=== PATIENT | female | born 1965 | race Caucasian/White ===

== ENCOUNTER → 2016-12-31 | Outpatient (CLI) | payer MEDICAID ==
[~2016-12-31] MED LIST: ADVIL PM; ALBU0.8322 IH; ALBU17AE23 IH; ALBU8.5H2 IH; AML5T; AMLO-79 PO; AMLO10TA PO; AMLO10TA82 PO; AMLO1CAP31 PO; AMLO1CAP9 PO; AMLO5TAB2; ATOR40TA70 PO; ATR20T PO; AZIT-21 PO; BACL10TA; BENZ100C18 PO; BENZ100C8 PO; BPR150TCR PO; BUDE10.22 IH; CATHETER FLUSH 10 ML SYR IV PRN; CELE50CA PO; CEPH-38 PO; CEPH500C PO; CIPR500T4 PO; CLON0.5T3; CLOP75TA PO; CPR250T PO; CPR500T PO; CYCL10TA9 PO; DARI7.5T8 PO; DESV50TA PO; DICL75TA2 PO; DIPH1TAB25 PO; DOXE100C4 PO; DOXY100C2 PO; DOXY100T2 PO; DULO60CA6; DXCC100C PO; DYAZIDE; ERT1OO OP; ESZO2TAB30 PO; EZET1TAB21; EZET1TAB44; FAMO20TA13 PO; FAMO20TA42 PO; FAMO20TA5 PO; FLT22013 IH; FLT22013 INH; FLUO20CA42 PO; FLUT1DIS26 IH; FURO20TA4; FURO20TA4 PO; FURO40TA4 PO; GABA100T PO; GABA300C PO; GBPN300C PO; GBPN400C PO; HCA25SU PR; HYDR-1231 PO; HYDR-2858 PO; HYDR-34 PO; HYDR-3454 PO; HYDR-3583 PO; HYDR-3714; HYDR-3714 PO; HYDR-3816 PO; HYDR-756 PO; HYDR-91 PO; HYDR118S10 PO; HYDR1TAB PO; HYDR1TAB86 PO; HYDR28CR10 TP; HYDR30CR71 RC; HYOS0.1217 PO; IBUP-1780 PO; IBUP800T26 PO; INSASP10V SC; INSU100I14 SQ; IOHEXOL 350 MG/ML 100 ML (OMNIPAQUE 350) VIAL IV ONE; IPRA0.2S18 IH; IPRA3AMP11 INH; IPRA4AER IH; KCL20TCR; LEVO500T69 PO; LISI10TA PO; LISI10TA2 PO; LORA10TA7 PO; LOVA40TA2 PO; LVB.63NB3; LVB.63NB3 NEB; LVB125NB3; LVT.025T PO; LVT.05T PO; MECL-106 PO; MECL25TA56 PO; MELO-195 PO; METF-380 PO; METF500T4 PO; METH500T35 PO; METH500T7 PO; METO-333 PO; METO25TA2 PO; MTF500T; MTF500T PO; NAPR-243 PO; NF-CYM60C; NF-LOVAZAC PO; NF-PULMINH; NF-TYLARTH PO; NITR-65 PO; NITR0.3T6 SL; NITR100C3 PO; NPB15O TOP; NS 100 ML (IVPB) BAG IV ONE; NTR.4SL SL; OMEG1CAP PO; OXYB15TA PO; OXYC-12 PO; OXYC1TAB87 PO; PANT40TA2 PO; PARO10TA2 PO; PENT100C3 PO; PHEN-640 PO; PHEN200T27 PO; POTA10CA43 PO; POTA10TA36 PO; PRD10T PO; PRD20T PO; PRD50T PO; PRESTIQ PO; PROP1TAB77 PO; PROVENTIL INHALER; QTP100T PO; QTP25T; QUET100T69; QUET200T2 PO; RT-COMBINH; RT-COMBINH IH; SIMV40TA4 PO; SMV10T PO; SULF-222 PO; SULF1TAB38; SULF1TAB38 PO; SULFACETAMIDE; TMZP15C PO; TOLTA4; TOLTA4 PO; TRAM-21 PO; TRAM50TA2 PO; TRAZ50TA67 PO; TRIA1CAP; TRIA1CAP PO; TRM50T; TRM50T PO; ZOLP10TA5 PO
--- OUTSIDE RECORDS SUMMARY | 2016-12-31 10:23 | XMS REPORT | Continuity of Care Document ---
Author Author [facility] Organization [facility] Address Unknown Phone Unavailable Care Team Providers Care Director Of Rehabilitation Name Role Phone Osvaldo Palafox PCP [phone] Source Comments Some departments are not documenting in the electronic medical record. If you do not see the information that you expected, contact Release of Information in the Health Information Management department at [phone] for further assistance in locating additional records.[facility] Active Allergies and Adverse Reactions Allergen Noted Date Severity Reactions Comments Asa 07/19/2014 Medium EDEMA Aspirin 09/18/2016 Low UNKNOWN Benazepril 08/30/2014 Low SEE COMMENTS Patient states, "I get awful sick" Benazepril 09/18/2016 Low UNKNOWN Codeine 07/19/2014 Medium HIVES Codeine 09/18/2016 Low UNKNOWN Pcn 07/19/2014 Medium EDEMA Peanut 02/15/2015 Medium HIVES Penicillins 09/18/2016 Low UNKNOWN Current Medications Prescription Sig. Disp. Refills Start End Date Status Date fluticasone (FLOVENT HFA) Inhale 2 Puffs by mouth Active 220 mcg/actuation inhaler every 12 hours. gabapentin (NEURONTIN) Take 600 mg by mouth Active 300 mg capsule three times daily. lisinopril (PRINIVIL; Take 10 mg by mouth Active ZESTRIL) 10 mg tablet daily. metFORMIN (GLUCOPHAGE) Take 500 mg by mouth Active 500 mg tablet twice daily with meals. nitroglycerin (NITROSTAT) Place 0.4 mg under tongue Active 0.4 mg tablet every 5 minutes as needed. albuterol (VENTOLIN HFA, Inhale 2 Puffs by mouth Active PROAIR HFA) 90 every 4 hours as needed. mcg/actuation inhaler albuterol 0.5% Inhale 2.5 mg solution as Active (PROVENTIL; VENTOLIN) 2.5 directed four times mg/0.5 mL nebu nebulizer daily. solution insulin aspart (NOVOLOG) Inject 10 Units into Active 100 unit/mL flexPEN area(s) as directed three times daily with meals. budesonide/formoterol Inhale 2 Puffs by mouth Active (SYMBICORT) 160/4.5 mcg twice daily. HFAA inhalation HYDROcodone/acetaminophen Take 1 Tab by mouth every Active (NORCO) 7.5/325 mg tablet 6 hours as needed ferrous sulfate (FEOSOL, Take 325 mg by mouth Active FEROSUL) 325 mg (65 mg twice daily. Take on an iron) tablet empty stomach at least 1 hour before or 2 hours after food. ipratropium/albuterol Inhale 2 Puffs by mouth Active (COMBIVENT) 103/18 into the lungs four times mcg/Actuation inhaler daily as needed for Wheezing. levothyroxine (SYNTHROID) Take 50 mcg by mouth Active 50 mcg tablet daily 30 minutes before breakfast. hyoscyamine sulfate 1 Tab every 4 hours as 30 Tab 3 09/12/20 Active (LEVSIN/SL) 0.125 mg needed for Cramps. 16 sublingual tablet acetaminophen (TYLENOL) Take 2 Tabs by mouth 30 Tab 1 09/16/20 Active 325 mg tablet every 4 hours as needed 16 for Pain. atorvastatin (LIPITOR) 40 09/11/20 Active mg tablet 16 gabapentin (NEURONTIN) 09/11/20 Active 300 mg capsule 16 HYDROcodone/acetaminophen 09/04/20 Active (NORCO) 5-325 mg tablet 16 hyoscyamine sulfate 09/12/20 Active (LEVSIN/SL) 0.125 mg 16 sublingual tablet levothyroxine (SYNTHROID) 09/11/20 Active 50 mcg tablet 16 metFORMIN (GLUCOPHAGE) 06/10/20 Active 500 mg tablet 16 PARoxetine (PAXIL) 10 mg 09/11/20 Active tablet 16 oxybutynin XL (DITROPAN 09/11/20 Active XL) 15 mg tablet 16 ELMIRON 100 mg capsule 09/11/20 Active 16 zolpidem (AMBIEN) 5 mg 09/11/20 Active tablet 16 hydrOXYzine (ATARAX) 10 TAKE 1 TABLET BY MOUTH 60 Tab 0 12/08/19 Active mg tablet TWICE DAILY 17 hydrOXYzine (ATARAX) 10 TAKE 1 TABLET BY MOUTH 60 Tab 3 06/27/2008/19 Discontin mg tablet TWICE DAILY 16 17 ued hydrOXYzine hcl (ATARAX) 09/11/20 12/08/19 Discontin 10 mg tablet 16 17 ued Active Problems Problem Noted Date Traumatic arthritis of right ankle 09/18/2016 IC (interstitial cystitis) 01/30/2016 Overview: Tried pelvic floor PT. Tried oral Elmiron --> no improvement. Tried Atarax --> no improvement. Tried Levsin --> no improvement. Tried Gabapentin 600 mg TID. Trial Elmiron bladder instillations x 6 (02/06/2016 -- 05/09/2016) --> no improvement. L ast Assessment & Plan: - pain management referral - schedule for next available bladder botox injection - future follow up with Dr. Durbin - referral to Dr. Carlton in [facility] for vaginal pain Gross hematuria 10/24/2015 Overview: Gross hematuria in setting of smoking history 09/28/15: CT abd/pel w/ diffuse mural thickening of distal right ureter 10/05/15: right URS w/ biopsy, cytology, and right ureteral stent placement. Intraoperative findings: diffuse inflammation of the distal right ureter; cytology: acute inflammation but no malignant cells; biopsy: tissue not adequate for diagnosis. Last Assessment & Plan: Gross hematuria remains intermittently present. There was no evidence of a malignant etiology on evaluation. Will continue to monitor. - Repeat CT Urogram 6 months. Recurrent UTI 07/19/2014 Last Assessment & Plan: Continue Bactrim SS. F/u w/ Dr. Cartwright. Mixed urge and stress incontinence (TRI) Overview: TRI (KATIA > UUI) refractory to a pubovaginal sling x 2 in 10/22/2013 and 01/28/2012 and macroplastique in 08/03/2013, mirabegron and anticholinergics. 1 ppd, poorly controlled DMII, obesity. UDS (08/30/2014): small capacity; complete emptying; +DO with leak. Cysto (08/30/14): unremarkable. Botox 200U (09/15/2014, 03/06/2015): no improvement; non-compliant with reduction of fluids and caffeine; continues drinking excessive amount of soda and coffee. Botox 250u (09/04/2015): slight improvement yet continued non-compliance. Botox 200u (03/04/2016). L ast Assessment & Plan: Next bladder Botox injection scheduled for February w/ Dr. Durbin. Chronic female pelvic pain Overview: Tried pelvic floor PT. Tried oral Elmiron --> no improvement. Tried Atarax --> no improvement. Tried Levsin --> no improvement. Tried Gabapentin 600 mg TID. Trial Elmiron bladder instillations x 6 (02/06/2016 -- 05/09/2016) --> no improvement. L ast Assessment & Plan: See IC A&P note. OAB (overactive bladder) Most Recent Encounters Date Type Specialty Providers Description 12/22/2016 [facility] Pradip Jaramillo MD Right ankle pain Encounter 12/19/2016 Surgery Pradip Jaramillo MD PROPHECY TOTAL ANKLE REPLACEMENT 12/08/2016 Refill Urology Rishi Cartwright MD 12/04/2016 Prep for Case Orthopedic Surgery Pradip Jaramillo MD 10/07/2016 [facility] Radiology Pradip Jaramillo MD Encounter Social History Tobacco Use Types Packs/Day Years Used Date Current Every Day Smoker Cigarettes 0.5 30 Smokeless Tobacco: Never Used Alcohol Use Drinks/Week oz/Week Comments No Last Filed Vital Signs Vital Sign Reading Time Taken Blood Pressure 154/88 09/16/2016 2:00 PM CDT Pulse 77 09/16/2016 2:00 PM CDT Temperature 36.7 C (98.1 F) 09/16/2016 2:00 PM CDT Respiratory Rate 16 10/24/2015 3:18 PM [employer] Height 1.676 m (5' 6") 09/12/2016 11:22 AM CDT Weight 82.3 kg (181 lb 7 oz) 09/16/2016 11:29 AM CDT Body Mass Index 29.3 09/16/2016 11:29 AM CDT Oxygen Saturation 95% 09/16/2016 2:00 PM CDT Plan of Care Date Type Specialty Providers Description 03/17/2017 Surgery Hermila Durbin MD CYSTOSCOPY WITH [address] [place] [place] [address] [place] [address] UNITS [phone] (Fax) Health Maintenance Due Date Last Done Comments Hepatitis C Screening 1964 Physical (Comprehensive) 1971 Exam Pertussis Vaccine 1975 Tetanus Vaccine 1981 Cervical Cancer Screening 1985 Breast Cancer Screening 2004 Colorectal Cancer 2014 Screening Influenza Vaccine 07/31/2016 Results from Last [address] LOWER EXTREM WO CONT RIGHT (10/07/2016 7:38 AM) Impressions 1. 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 Correlation with prior surgical history is recommended. 2. Multiple ossicles within the anterior and posterior recess of the ankle joint space. The combination of anterior ossicles and dorsal talar osteophytes is suspicious for anterior ankle impingement syndrome. 3. Old healed internally fixed distal fibular fracture. Approved by Cheyenne Babin M.D. on 10/07/2016 9:23 AM By my electronic signature, I attest that I have personally reviewed the images for this examination and formulated the interpretations and opinions expressed in this report Finalized by Joon Heath M.D. on 10/07/2016 10:49 AM. Dictated by Cheyenne Babin M.D. on 10/07/2016 7:[address] OF THE RIGHT ANKLE INDICATION: Right ankle fracture status post surgical repair. TECHNIQUE: Contiguous axial images were obtained through the right ankle in bone and soft tissue window algorithms. Post processing reconstructions were obtained in the coronal and sagittal planes. COMPARISON: Plain radiograph plate September 18, 2016 FINDINGS: Old fracture deformity of the distal tibia is noted with marked irregularity, incongruity and depression of the central weightbearing articular surface of the distal tibia. Immediately deep to the depressed segment of the subchondral bone plate, there is a persistent transverse lucent line, likely an ununited fracture or incompletely incorporated bone graft material. There is an incompletely healed portion of the fracture along the posterior aspect of the tibia (series 14 image 28). Multiple moderate-sized ossicles are seen within the anterior recess of the joint space, measuring up to 0.7 cm. Additional smaller ossicles are seen within the posterior recess of the ankle joint space. Dorsal osteophyte is noted along the lateral talar neck, which in conjunction with previously noted anterior ossicles is suspicious for anterior ankle impingement syndrome. Small ankle joint effusion is present. There is extensive secondary osteoarthritis of the tibiotalar joint, with marked joint space narrowing, subchondral cystic change, and osteophyte formation. Prior ORIF of old healed distal fibular fracture with intact lateral plate and screw fixation. Procedure Note Interface, Radiant Results - Tue Oct 07, 2016 10:52 AM [employer] O[employer] CT OF THE RIGHT ANKLE INDICATION: Right ankle fracture status post surgical repair. TECHNIQUE: Contiguous axial images were obtained through the right ankle in bone and soft tissue window algorithms. Post processing reconstructions were obtained in the coronal and sagittal planes. COMPARISON: Plain radiograph plate September 18, 2016 FINDINGS: Old fracture deformity of the distal tibia is noted with marked irregularity, incongruity and depression of the central weightbearing articular surface of the distal tibia. Immediately deep to the depressed segment of the subchondral bone plate, there is a persistent transverse lucent line, likely an ununited fracture or incompletely incorporated bone graft material. There is an incompletely healed portion of the fracture along the posterior aspect of the tibia (series 14 image 28). Multiple moderate-sized ossicles are seen within the anterior recess of the joint space, measuring up to 0.7 cm. Additional smaller ossicles are seen within the posterior recess of the ankle joint space. Dorsal osteophyte is noted along the lateral talar neck, which in conjunction with previously noted anterior ossicles is suspicious for anterior ankle impingement syndrome. Small ankle joint effusion is present. There is extensive secondary osteoarthritis of the tibiotalar joint, with marked joint space narrowing, subchondral cystic change, and osteophyte formation. Prior ORIF of old healed distal fibular fracture with intact lateral plate and screw fixation. IMPRESSION 1. 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 Correlation with prior surgical history is recommended. 2. Multiple ossicles within the anterior and posterior recess of the ankle joint space. The combination of anterior ossicles and dorsal talar osteophytes is suspicious for anterior ankle impingement syndrome. 3. Old healed internally fixed distal fibular fracture. Approved by Cheyenne Babin M.D. on 10/07/2016 9:23 AM By my electronic signature, I attest that I have personally reviewed the images for this examination and formulated the interpretations and opinions expressed in this report Finalized by Joon Heath M.D. on 10/07/2016 10:49 AM. Dictated by Cheyenne Babin M.D. on 10/07/2016 7:51 AM.
--- NOTE | 2016-12-31 16:09 | Diagnostic Imaging Report ---
EXAMINATION: CT angiogram of the abdomen performed without and with intravenous contrast. TECHNIQUE: The CTA evaluation was performed of the abdominal aorta with axial images and coronal MIP reconstructions without and with intravenous contrast. INDICATION: Post EVAR evaluation. CONTRAST: 100 mL of Omnipaque 350 was administered intravenously. FINDINGS: There is minimal atelectasis in the lung bases. The liver, spleen, pancreas, and adrenals appear unremarkable. Small calcified gallstones are seen. The kidneys demonstrate symmetric contrast enhancement and excretion. There is mild renal atrophy, particularly on the left side. No focal mass. There is an endovascular repair with a bifurcating aortobiiliac graft seen in the abdominal aorta with landing zones in the distal common iliac artery bilaterally. The endograft is patent. The maximum caliber of the aneurysm is 5 cm. The unenhanced phase demonstrates multiple hyperdensities within the aneurysm lumen outside the graft that persist on post contrast images, compatible with calcifications with no evidence of an endoleak. The proximal aspects of the external iliac and internal iliac arteries visualized are patent. No periaortic significantly enlarged lymph node or mass. The celiac trunk and SMA are both patent. The renal arteries are both patent. The NIKHIL origin is occluded with retrograde flow in its mid to distal aspect seen. The osseous structures appear grossly unremarkable. IMPRESSION: 1. There is a 5 cm AAA status post patent endograft repair with no evidence of endoleak. 2. Small calcified gallstones. Dictated by: Dictated on workstation # [id number]
== END ==
LOC: RAD 10:19
PROVIDERS: ATTEND Nurse Practitioner
DX: I71.4 Abdominal aortic aneurysm, without rupture (principal)
CPT/HCPCS: 74150; 75635

== ENCOUNTER → 2017-10-27 | Outpatient (CLI) | payer MEDICAID ==
[~2017-10-27] MED LIST changes: -CATHETER FLUSH 10 ML SYR IV PRN; +HYOS-6 PO; -HYOS0.1217 PO; -IOHEXOL 350 MG/ML 100 ML (OMNIPAQUE 350) VIAL IV ONE; -NS 100 ML (IVPB) BAG IV ONE
--- NOTE | 2017-10-28 14:59 | Diagnostic Imaging Report ---
Bilateral screening mammogram 2D views with tomosynthesis. The current study was also evaluated with a Computer Aided Detection (CAD) system. INDICATION: Screening. No current complaints stated on the questionnaire. COMPARISON: 08/07/2011. FINDINGS: The breasts are composed of scattered fibroglandular densities. There are scattered benign-appearing calcifications seen. Circumscribed nodules developed in the central and slightly medial aspects of the left breast less than a centimeter in size. The right breast demonstrates no definite change. IMPRESSION: Focal compression views and ultrasound evaluation for subcentimeter nodular asymmetries developed in the central and medial aspects of the left breast. ACR BI-RADS Category 0: Incomplete. (Needs additional imaging evaluation). Result letter will be mailed to the patient. Note: At least 10% of breast cancer is not imaged by mammography. Dictated by: Dictated on workstation # [id number]
== END ==
LOC: RAD 12:24
PROVIDERS: ATTEND Family Medicine
DX: Z12.31 Encounter for screening mammogram for malignant neoplasm of breast (principal)
CPT/HCPCS: 77067

== ENCOUNTER → 2017-11-09 | Outpatient (CLI) | payer MEDICAID ==
--- NOTE | 2017-11-09 19:59 | Diagnostic Imaging Report ---
Left breast diagnostic mammogram with tomography evaluation. The current study was also evaluated with a Computer Aided Detection (CAD) system. INDICATION: Asymmetries in the medial aspect of the left breast. FINDINGS: Focal compression views demonstrate resolution of the previously seen asymmetries seen on mammogram of 10/27/17 with no underlying abnormality identified on tomographic evaluation. IMPRESSION: Resolution of the previously seen asymmetries suggestive of transient benign process. Annual screening mammogram is recommended. ACR BI-RADS Category 2: Benign findings. Result letter will be mailed to the patient. Note: At least 10% of breast cancer is not imaged by mammography. Dictated by: Dictated on workstation # [id number]
== END ==
LOC: RAD 12:27
PROVIDERS: ATTEND Family Medicine
DX: R92.8 Other abnormal and inconclusive findings on diagnostic imaging of breast (principal)

== ENCOUNTER → 2017-11-26 | Outpatient (CLI) | payer MEDICAID | LOC: CARD 11:24 | PROVIDERS: ATTEND Internal Medicine Cardiovascular Disease | DX: I73.9 Peripheral vascular disease, unspecified (principal); R06.02 Shortness of breath; I25.10 Atherosclerotic heart disease of native coronary artery without angina pectoris; I25.5 Ischemic cardiomyopathy; J43.8 Other emphysema; E11.9 Type 2 diabetes mellitus without complications; I10 Essential (primary) hypertension; Z72.0 Tobacco use | CPT/HCPCS: 93306 ==

== ENCOUNTER → 2017-12-01 | Outpatient (CLI) | payer MEDICAID ==
[~2017-12-01] VITALS: Ht 170.2 cm; Wt 75.3 kg
[~2017-12-01] MED LIST changes: +CATHETER FLUSH 10 ML SYR IV PRN; +REGADENOSON 0.4 MG/5 ML SYR (LEXISCAN) IV ONE
[2017-12-01 08:56] VITALS: BP 139/78
[2017-12-01 09:28] VITALS: BP 102/61
--- NOTE | 2017-12-01 20:46 | STRESS TEST ---
DATE OF SERVICE: 12/01/2017 RESTING AND POST REGADENOSON TECHNETIUM-99M TETROFOSMIN SPECT CT IMAGING ORDERING PHYSICIAN: Dr. Martinez. PRIMARY CARE PHYSICIAN: Dr. Palafox. CLINICAL DIAGNOSES: Shortness of breath, coronary artery disease, and ischemic cardiomyopathy. DESCRIPTION: Baseline images were carried out after injection of 10.96 mCi technetium-99m Tetrofosmin. This was followed by 0.4 mg regadenoson and 33 mCi of technetium-99m Tetrofosmin for stress imaging. The electrocardiogram showed sinus rhythm at baseline and it did not change significantly with the regadenoson infusion. Review of images at rest and following stress does not indicate any distinct perfusion defects consistent with significant myocardial ischemia or infarction. Gated images show global hypokinesis of the left ventricle. Left ventricular ejection fraction is calculated to be 33%. Left ventricular end-diastolic volume is 108 mL. TID is absent (1.02). CONCLUSIONS: 1. No evidence of significant myocardial ischemia or infarction on this study. 2. Moderate to moderately severe impairment of global left ventricular systolic function with global hypokinesis and left ventricular ejection fraction of 33%. 3. [id number] cardiomegaly. Job ID: [id number] DocumentID: [id number] Dictated Date: 12/01/2017 15:54:22 Electrical Inspector Date: 12/01/2017 18:16:46 Dictated By: BRADLY MARTINEZ MD, MA, FACP, FACC,
== END ==
LOC: CARD 08:04
PROVIDERS: ATTEND Internal Medicine Cardiovascular Disease
DX: R06.02 Shortness of breath (principal); I73.9 Peripheral vascular disease, unspecified; I25.10 Atherosclerotic heart disease of native coronary artery without angina pectoris; I25.5 Ischemic cardiomyopathy; J43.8 Other emphysema; E11.9 Type 2 diabetes mellitus without complications; I10 Essential (primary) hypertension; Z72.0 Tobacco use
CPT/HCPCS: 78452; 93017

== ENCOUNTER → 2017-12-02 | Outpatient (CLI) | payer MEDICAID ==
[~2017-12-02] MED LIST changes: -CATHETER FLUSH 10 ML SYR IV PRN; -REGADENOSON 0.4 MG/5 ML SYR (LEXISCAN) IV ONE; +RT-ALBUTEROL SULF 2.5 MG/3 ML PRE-MIX VIAL INH ONE
== END ==
LOC: RT 08:24
PROVIDERS: ATTEND Internal Medicine Cardiovascular Disease
DX: R06.02 Shortness of breath (principal); J43.8 Other emphysema; I73.9 Peripheral vascular disease, unspecified; I25.10 Atherosclerotic heart disease of native coronary artery without angina pectoris; I25.5 Ischemic cardiomyopathy; E11.9 Type 2 diabetes mellitus without complications; I10 Essential (primary) hypertension; Z72.0 Tobacco use
CPT/HCPCS: 94060; 94726; 94729

== ENCOUNTER → 2017-12-21 | Outpatient (CLI) | payer MEDICAID ==
[~2017-12-21] MED LIST changes: +CATHETER FLUSH 10 ML SYR IV PRN; +HEParin (CENTRAL IV FLUSH) 500 UNIT/5 ML SYR ONE; -RT-ALBUTEROL SULF 2.5 MG/3 ML PRE-MIX VIAL INH ONE
== END ==
LOC: CARD 13:54
PROVIDERS: ATTEND Nurse Practitioner Family
DX: I25.5 Ischemic cardiomyopathy (principal)
CPT/HCPCS: 78472

== ENCOUNTER → 2017-12-29 | Outpatient (CLI) | payer MEDICAID ==
[~2017-12-29] MED LIST changes: -CATHETER FLUSH 10 ML SYR IV PRN; -HEParin (CENTRAL IV FLUSH) 500 UNIT/5 ML SYR ONE
== END ==
LOC: RAD 12:20
PROVIDERS: ATTEND Internal Medicine Cardiovascular Disease
DX: I25.10 Atherosclerotic heart disease of native coronary artery without angina pectoris (principal); I25.5 Ischemic cardiomyopathy; I65.23 Occlusion and stenosis of bilateral carotid arteries; I73.9 Peripheral vascular disease, unspecified; E11.9 Type 2 diabetes mellitus without complications; E78.4 Other hyperlipidemia; R06.02 Shortness of breath; Z72.0 Tobacco use
CPT/HCPCS: 93923

== ENCOUNTER 2018-01-07 16:22 | Emergency (ER) | payer MEDICAID ==
[~2018-01-07] VITALS: Ht 170.2 cm; Wt 75.3 kg
[~2018-01-07 16:22] MED LIST changes: -HYDR-3816 PO
--- NOTE | 2018-01-07 17:57 | ED Lower Extremity ---
General Chief Complaint: Lower Extremity Stated Complaint: FALL WITH BIG BUMP ON L LEG Nursing Triage Note: PT. STATED SHE FELL YESTERDAY. C/O LEG PAIN TO L-LEG, C/O MUSCLE PAIN TO AREA THAT IS "NEW". DENIES HAVING CHRONIC PAIN TO LEG. STATES SHE WENT TO [facility] AND WAS SEEN TODAY BUT LEG HURTING MORE TODAY SO SHE CAME TO THIS ER. Nursing Sepsis Screen: No Definite Risk Source: patient Exam Limitations: no limitations History of Present Illness Date Seen by Provider: Jan 07, 2018 Time Seen by Provider: 17:57 Initial Comments 52-year-old female patient presents to the emergency department complaints of left lateral thigh pain. Patient reports falling out of the shower yesterday and being seen today by [facility]. Denies having x-rays. States she was told that she had a bruise and was sent home. Patient decided to come to the emergency department. Denies loss of consciousness, neck pain, or back pain. Patient denies having any any muscle relaxants or anything for pain at home except for Tylenol. Denies taking any Tylenol for pain. Patient states she is seeing Dr. Fishman at [facility], but numerous medications are being filled by Dr. Clemente. Location Injury Occurred: home Onset: yesterday Pain/Injury Location: left thigh Method of Injury: fell Modifying Factors: Worse With Other (pain worse with palpation) Allergies and Home Medications Allergies Coded Allergies: Penicillins (Verified Allergy, Mild, Hives, 03/05/16) Fpxymeg-Swv-Vjv Reductase Inhibitor (Verified Allergy, Unknown, 03/05/16) amlodipine besylate (Verified Allergy, Unknown, 03/05/16) benazepril HCl (Verified Allergy, Unknown, 03/05/16) aspirin (Verified Adverse Reaction, Mild, Nausea, 02/19/15) codeine (Verified Adverse Reaction, Mild, Nausea, 02/19/15) tramadol (Verified Adverse Reaction, Mild, N/V, 07/16/15) Home Medications Albuterol 8.5 Gm Hfa.aer.ad, 2 PUFF IH Q4H PRN for SHORTNESS OF BREATH, ( Reported) NEEDED FOR SHORTNESS OF BREATH Albuterol Sulfate 2.5 Mg/3 Ml Solution, 2.5 MG IH Q6H, (Reported) Albuterol/Ipratropium 3 Ml Nebu, 3 ML INH TID PRN for SHORTNESS OF BREATH, ( Reported) Atorvastatin Calcium 40 Mg Tablet, 40 MG PO DAILY, (Reported) Budesonide/Formoterol Fumarate 10.2 Gm Hfa.aer.ad, 2 PUFF IH BID, (Reported) Fluoxetine HCl 20 Mg Capsule, 20 MG PO DAILY, (Reported) Fluticasone Propionate 1 Ea Aero, 2 PUFF IH BID, (Reported) Gabapentin 300 Mg Capsule, 600 EACH PO TID, (Reported) TAKES 2 (300MG) CAPSULES Hyoscyamine Sulfate 0.125 Mg Tab.rapdis, 1 TAB PO Q4H PRN for CRAMPS, (Reported) Ipratropium/Albuterol Sulfate 4 Gm Aer.w.adap, 2 PUFF IH QID PRN for SHORTNESS OF BREATH, (Reported) NEEDED FOR SHORTNESS OF BREATH Lisinopril 10 Mg Tablet, 10 MG PO DAILY, (Reported) Metformin Hcl 500 Mg Tablet, 500 MG PO BID, (Reported) Methocarbamol 500 Mg Tablet, 500 MG PO TID, (Reported) Metoprolol Tartrate 25 Mg Tablet, 12.5 MG PO BID, (Reported) TAKES 1/2 (25MG) TABLET Nitroglycerin 0.4 Mg Tab, 0 SL PRN, (Reported) 1 TAB EVERY 5 MINUTES X 3 DOSES NEEDED FOR CHEST PAIN Oxybutynin Chloride 15 Mg Tab.osm.24, 15 MG PO DAILY, (Reported) Constitutional: no symptoms reported EENTM: no symptoms reported Respiratory: no symptoms reported Cardiovascular: no symptoms reported Gastrointestinal: no symptoms reported Genitourinary: no symptoms reported Musculoskeletal: see HPI, No back pain, joint pain (left thigh pain), No joint swelling, No neck pain Skin: change in color (bruising to the left thigh) Psychiatric/Neurological: Denies Headache, Denies Numbness, Denies Paresthesia , Denies Tingling, Denies Weakness All Other Systems Reviewed Negative Unless Noted: Yes (Negative excepted noted.) Past Xkrjpny-Dacxod-Llzysv Hx Patient Social History Alcohol Use: Denies Use Recreational Drug Use: No Smoking Status: Current Everyday Smoker Recent Foreign Travel: No Contact w/Someone Who Travel: No Recent Infectious Disease Expo: No Recent Hopitalizations: No Immunizations Up To Date Tetanus Booster (TDap): Less than 5yrs Date of Pneumonia Vaccine: Jul 10, 2011 Date of Influenza Vaccine: Oct 30, 2015 Seasonal Allergies Seasonal Allergies: Yes Surgeries History of Surgeries: Yes (BROKEN HAND AND ANKLE) Surgeries: Hysterectomy, Orthopedic Respiratory History of Respiratory Disorde: Yes (COPD, ASTHMA, O2 @ NOC) Respiratory Disorders: Asthma, Pneumonia, Chronic Bronchitis, COPD, Emphysema Cardiovascular History of Cardiac Disorders: Yes (STENTS) Cardiac Disorders: High Cholesterol, Hypertension Neurological History of Neurological Disord: Yes Neurological Disorders: Headaches /Migraines 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 System Hx 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 Disorders: No Sexually Transmitted Disease: No HIV/AIDS: No 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 Disorders: Denies PRINCIPAL ARCHITECT History: Hysterectomy Genitourinary History of Genitourinary Disor: Yes Genitourinary Disorders: UTI-Chronic Gastrointestinal History of Gastrointestinal Di: Yes Gastrointestinal Disorders: Gastroesophageal Reflux Musculoskeletal History of Musculoskeletal Dis: Yes Musculoskeletal Disorders: Arthritis, Back Injury, Chronic Back Pain, Fractures Endocrine History of Endocrine Disorders: Yes Endocrine Disorders: Diabetes, Non-Insulin dep HEENT Loss of Vision: Denies Hearing Impairment: Denies Cancer History of Cancer: No Psychosocial History of Psychiatric Problem: Yes Behavioral Health Disorders: Anxiety, Depression Integumentary History of Skin or Integumenta: No Blood Transfusions History of Blood Disorders: No Adverse Reaction to a Blood Tr: No Reviewed Nursing Assessment Reviewed/Agree w Nursing PMH: Yes Family Medical History Significant Family History: No Pertinent Family Hx Family Medial History: Arthritis Diabetes mellitus Hypertension Physical Exam Vital Signs Vital Signs - First Documented 01/07/18 16:45 Temp 100.0 Pulse 87 Resp 18 B/P (MAP) 118/65 (82) Pulse Ox 98 O2 Delivery Room Air Capillary Refill : Less Than 3 Seconds General Appearance: WD/WN, no apparent distress HEENT: PERRL/EOMI, pharynx normal, other (normocephalic, atraumatic) Neck: non-tender, full range of motion, supple, normal inspection Cardiovascular: normal peripheral pulses, regular rate, rhythm, no murmur Respiratory: lungs clear, normal breath sounds, no respiratory distress, no accessory muscle use Gastrointestinal: normal bowel sounds, non tender, soft Back: normal inspection, no vertebral tenderness Hips: bilateral hip non-tender, bilateral hip normal inspection, bilateral hip normal range of motion, bilateral hip no evidence of injury Legs: right leg non-tender, right leg normal inspection, bilateral leg normal range of motion, right leg no evidence of injury, left leg ecchymosis (2 x 3 cm area of ecchymosis and soft tissue tenderness to the left lateral proximal thigh with minimal swelling at the bruising site. No deformity noted. No bony tenderness noted.), left leg pain Knees: bilateral knee non-tender, bilateral knee normal inspection, bilateral knee normal range of motion, bilateral knee no evidence of injury Ankles: bilateral ankle non-tender, bilateral ankle normal inspection, bilateral ankle normal range of motion, bilateral ankle no evidence of injury Feet: bilateral foot non-tender, bilateral foot normal inspection, bilateral foot normal range of motion, bilateral foot no evidence of injury Neurologic/Tendon: normal sensation, normal motor functions, normal tendon functions, responds to pain, no evidence tendon injury Neurologic/Psychiatric: no motor/sensory deficits, alert, normal mood/affect, oriented x 3 Skin: normal color, warm/dry, ecchymosis (left proximal lateral thigh (see left lower extremity exam above)) Progress/Results/Core Measures Results/Orders My Orders Orders - HARDEEP BOWER Femur, Left, 2 Views (01/07/18 18:41) Acetaminophen Tablet (Tylenol Tablet) (01/07/18 18:58) Vital Signs/I&O Vital Sign - Last 12Hours 01/07/18 01/07/18 16:45 19:39 Temp 100.0 98.9 Pulse 87 85 Resp 18 16 B/P (MAP) 118/65 (82) Pulse Ox 98 98 O2 Delivery Room Air Blood Pressure Mean: 82 Diagnostic Imaging Diagonstic Imaging: Xray Plain Films/CT/US/NM/MRI: femur Comments FEMUR, LEFT, 2 VIEWS INDICATION: Fall with left femur pain AP and lateral views of the left femur are obtained. FINDINGS: No acute fracture or dislocation is identified. No abnormal lytic or sclerotic focus is seen, and there is no radiopaque foreign body. IMPRESSION: No acute abnormality. Dictated on workstation # [id number] Reviewed: Reviewed by Me (radiology report reviewed by me) Departure Communication (Admissions) Progress Notes Diagnostic findings discussed with the patient. Patient again denies having anything other than Tylenol at home for pain. Denies having muscle relaxants. Patient, however, filled Flexeril 10 mg number 28 on 01/04/18, ibuprofen 600 mg number 30 on 01/04/18, meloxicam 15 mg on 01/04/18, and Neurontin 300 mg number 180 on 12/21/17. Patient now states "well, those medications don't work for my pain." Denies taking any of these medications today. I discussed with the patient that she had reported previously not having any of these medications at home rather than these medications not helping her symptoms. I Have advised the patient to follow-up with her primary care provider for any pain medication prescriptions. Patient to use her home medications. I have instructed her to only use mobic OR ibuprofen. She is to discuss these medications with her primary care provider as she is receiving them from 2 different providers and both are NSAIDs. Plan for discharge to home. Impression Impression: Primary Impression: Contusion of thigh, left Qualified Codes: S70.12XA - Contusion of left thigh, initial encounter Disposition: HOME, SELF-CARE Condition: Improved Departure-Patient Inst. Decision time for Depature: 19:13 Referrals: [facility] [place]) Primary Care Physician Patient Instructions: Contusion (DC) Add. Discharge Instructions: All discharge instructions reviewed with patient and/or family. Voiced understanding. Continue usual home medications including cyclobenzaprine, ibuprofen or meloxicam, and gabapentin. Tylenol extra strength [id number]-puhqygs as directed for pain. Elevate the left leg on pillows. Ice pack for 20 minute intervals as needed for pain. Follow-up with Dr. Clemente for recheck if needed. Call for appointment time if needed. Return to the emergency department for worsened symptoms or any other concerns. Images Extremities-Lower 1 - Contusion Copy Copies To 1: BILL CLEMENTE DO Copies To 2: KING FISHMAN MD, GRETCHEN L PA Jan 07, 2018 17:57
[2018-01-07] MEDS ORDERED: ACETAMINOPHEN 500 MG TAB (TYLENOL) PO STA (18:58)
--- NOTE | 2018-01-07 19:03 | Diagnostic Imaging Report ---
INDICATION: Fall with left femur pain AP and lateral views of the left femur are obtained. FINDINGS: No acute fracture or dislocation is identified. No abnormal lytic or sclerotic focus is seen, and there is no radiopaque foreign body. IMPRESSION: No acute abnormality. Dictated by: Dictated on workstation # [id number]
[2018-01-07 19:39] VITALS: BP 122/71
--- OUTSIDE RECORDS SUMMARY | 2018-01-10 06:40 | XMS REPORT | Continuity of Care Document ---
Author Author [employer] Organization [facility] Address Unknown Phone Unavailable Care Team Providers Care Phlebotomist Lab Assistant Name Role Phone [employer] Unavailable Unavailable Problems Medications Allergies, Adverse Reactions, Alerts Immunizations Results Vital Signs Encounters Location Location Details Encounter Type Encounter Number Reason For Visit Attending Provider ADM Date DC Date Status Source OUTPATIENT [id number] MARINA HANSENTON 10/07/2016 10/07/2016 Active [facility] O Active [facility] OP SURGERY [id number] KEYANA SANCHEZ Active [facility] Procedures Plan of Care Social History Assessment and Plan Family History Advance Directives Functional Status
--- OUTSIDE RECORDS SUMMARY | 2018-01-10 06:41 | XMS REPORT | Clinical Summary ---
Author Author [facility] Organization [facility] Address Unknown Phone Unavailable Care Team Providers Care Counterintelligence/Humint Specialist Name Role Phone Osvaldo Palafox DO Unavailable Hermila Durbin MD Unavailable Rishi Cartwright MD Unavailable Donell Haque PA-C Unavailable Lizet Parsons RN Unavailable Unavailable Kristofer Dowling MD Unavailable Unavailable Osvaldo Palafox DO PCP Source Comments Some departments are not documenting in the electronic medical record. If you do not see the information that you expected, contact Release of Information in the Health Information Management department at [phone] for further assistance in locating additional records.[facility] Allergies Active Allergy Reactions Severity Noted Date Comments Aspirin EDEMA Medium 07/19/2014 Aspirin UNKNOWN Low 09/18/2016 Benazepril SEE COMMENTS Low 08/30/2014 Patient states, "I get awful sick" Benazepril UNKNOWN Low 09/18/2016 Codeine HIVES Medium 07/19/2014 Codeine UNKNOWN Low 09/18/2016 Penicillins EDEMA Medium 07/19/2014 Peanut HIVES Medium 02/15/2015 Penicillins UNKNOWN Low 09/18/2016 Current Medications Prescription Sig. Disp. Refills Start [...] hour before or 2 hours after food. levothyroxine (SYNTHROID) Take 50 mcg by mouth Active 50 mcg tablet daily 30 minutes before breakfast. atorvastatin (LIPITOR) 40 daily. 09/11/20 Active mg tablet 16 levothyroxine (SYNTHROID) 09/11/20 Active 50 mcg tablet 16 PARoxetine (PAXIL) 10 mg as Needed. 09/11/20 Active tablet 16 oxybutynin XL (DITROPAN daily. 09/11/20 Active XL) 15 mg tablet 16 ELMIRON 100 mg capsule once. 09/11/20 Active 16 zolpidem (AMBIEN) 5 mg at bedtime as needed. 09/11/20 Active tablet 16 hydrOXYzine (ATARAX) 10 TAKE 1 TABLET BY MOUTH 60 tablet 3 12/30/19 Active mg tablet TWICE DAILY 18 hydrOXYzine (ATARAX) 10 TAKE 1 TABLET BY MOUTH 60 tablet 3 08/28/20 12/30/19 Discontin mg tablet TWICE DAILY 17 18 ued Active Problems Problem Noted Date Traumatic [...] Durbin - referral to Dr. Carlton in Practice Coordinator for vaginal pain Gross hematuria 10/24/2015 Overview: [...] See IC A&P note. OAB (overactive bladder) Encounters Date Type Specialty Care Team Description 12/30/2017 Refill Urology Rishi Cartwright MD from Last 3 Months Family History Medical History Relation Name Comments Diabetes Father Hypertension Mother Relation Name Status Comments Father Mother Social History Tobacco Use Types Packs/Day Years Used Date Current Every Day Smoker Cigarettes 0.5 30 Smokeless Tobacco: Never Used Alcohol Use Drinks/Week oz/Week Comments No Sex Assigned at Date Recorded Not on file Last Filed Vital Signs Vital Sign Reading Time Taken Blood Pressure 135/68 03/17/2017 10:00 AM CDT Pulse 65 03/17/2017 10:00 AM CDT Temperature 36.4 C (97.5 F) 03/17/2017 10:00 AM CDT Respiratory Rate 16 10/24/2015 3:18 PM WOMEN'S ACTIVITIES ADVISER Oxygen Saturation 96% 03/17/2017 10:00 AM CDT Inhaled Oxygen - - Concentration Weight 84.3 kg (185 lb 13.6 oz) 03/17/2017 6:41 AM CDT Height 170.2 cm (5' 7") 03/17/2017 6:41 AM CDT Body Mass Index 29.11 03/17/2017 6:41 AM CDT Plan of Treatment Health Maintenance Due Date Last Done Comments HEPATITIS C SCREENING 1964 PHYSICAL (COMPREHENSIVE) 1971 EXAM PERTUSSIS VACCINE 1975 TETANUS VACCINE 1981 CERVICAL CANCER SCREENING 1994 BREAST CANCER SCREENING 2004 COLORECTAL CANCER 2014 SCREENING INFLUENZA VACCINE 06/30/2017 Implants Implanted Type Area [employer] Wafer Device Expiration Model / Identifier Date Serial / Lot Right Ankle Plate Results Not on filefrom Last 3 Months
--- OUTSIDE RECORDS SUMMARY | 2018-01-10 06:41 | XMS REPORT ---
Author Author ETELVINA LEONARD [facility] [employer] Address Unknown Phone Unavailable Care Team Providers Care Subassembly Assembler Name Role Phone ETELVINA LEONARD CP Unavailable Allergies No Known Allergies Problems Problem Type Condition ICD-9 Code Onset Dates Condition Status Problem Acute cystitis 595.0 Active Problem Diarrhea 787.91 Active Problem Candidiasis of skin and nails 112.3 Active Problem Depressive disorder, not elsewhere classified 311 Active Problem Encounter for long-term (current) use of other medications V58.69 Active Problem Syncope and collapse 780.2 Active Problem Family history of malignant neoplasm of gastrointestinal tract V16.0 Active Problem Loss of weight 783.21 Active Problem Pneumonia, organism unspecified 486 Active Problem Dysphagia, unspecified 787.20 Active Problem Cough 786.2 Active Problem Edema 782.3 Active Problem Unspecified viral infection, in conditions classified elsewhere and of unspecified site 079.99 Active Problem Angioneurotic edema not elsewhere classified 995.1 Active Problem Unspecified chronic bronchitis 491.9 Active Problem Rhabdomyolysis 728.88 Active Problem Unspecified hypothyroidism 244.9 Active Problem Other specified disorder of skin 709.8 Active Problem Abdominal pain, left upper quadrant 789.02 Active Problem 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 Problem Acute upper respiratory infections of unspecified site 465.9 Active Problem Other hammer toe (acquired) 735.4 Active Problem Dermatophytosis of nail 110.1 Active Problem Other malaise and fatigue 780.79 Active Problem Acute sinusitis, unspecified 461.9 Active Problem Effusion of ankle and foot joint 719.07 Active Problem Acute serous otitis media 381.01 Active Problem Pain in joint, lower leg 719.46 Active Problem Hypoxemia 799.02 Active Problem Pain in joint, ankle and foot 719.47 Active Problem Dysuria 788.1 Active Problem Need for prophylactic vaccination and inoculation, Influenza V04.81 Active Problem Insomnia, unspecified 780.52 Active Problem Unspecified breast screening V76.10 Active Problem PPV23 (PNEUMOVAX) DX V03.82 Active Problem Other screening mammogram V76.12 Active Problem Screening for malignant neoplasm of the cervix V76.2 Active Medications No Known Medications Results No Known Results Summary Purpose [employer]ClinicalWorks Submission
--- OUTSIDE RECORDS SUMMARY | 2018-01-10 06:41 | XMS REPORT | Encounter Summary ---
Author Author [facility] Organization [facility] Address Unknown Phone Unavailable Care Team Providers Care Recording Clerk Name Role Phone Osvaldo Palafox DO Unavailable Hermila Durbin MD Unavailable Rishi Cartwright MD Unavailable Donell Haque PA-C Unavailable Lizet Parsons RN Unavailable Unavailable Kristofer Dowling MD Unavailable Unavailable Osvaldo Palafox DO PCP Reason for Visit * Reason Comments Medication Refill Encounter Details Date Type Department Care Team Description 12/30/2017 Refill [facility] Rishi Cartwright MD Physicians - Urology [address] [facility] [address] FLO[address] POD [address] [place] [address] [facility] [place] [address] OFFICE BLDG [phone] [place] [address] Social History Tobacco Use Types Packs/Day Years Used Date Current Every Day Smoker Cigarettes 0.5 30 Smokeless Tobacco: Never Used Alcohol Use Drinks/Week oz/Week Comments No Sex Assigned at Date Recorded Not on file as of this encounter Plan of Treatment Not on fileas of this encounter Visit Diagnoses Not on filein this encounter
--- OUTSIDE RECORDS SUMMARY | 2018-01-10 06:42 | XMS REPORT ---
Author Author ETELVINA LEONARD [facility] eClinical[employer] Address Unknown Phone Unavailable Care Team Providers Care Glost Kiln Operator Name Role Phone ETELVINA LEONARD CP Unavailable Allergies, Adverse Reactions, Alerts Substance Reaction Event Type Penicillin G Potassium anaphylaxis Drug Allergy Codeine Sulfate anaphylaxis Drug Allergy Aspirin hives Drug Allergy Peanut hives Non Drug Allergy Problems Problem Type Condition ICD-9 Code Onset [...] in joint, ankle and foot 719.47 Active Assessment COPD with acute exacerbation 491.21 Active Problem Dysuria 788.1 Active Problem Need for prophylactic vaccination and inoculation, Influenza V04.81 Active Problem Insomnia, unspecified 780.52 Active Problem Unspecified breast screening V76.10 Active Problem PPV23 (PNEUMOVAX) DX V03.82 Active Problem Other screening mammogram V76.12 Active Problem Screening for malignant neoplasm of the cervix V76.2 Active Medications Medication Code System Code Instructions Start Date End Date Status Dosage Oxybutynin Chloride [facility] [address]-92 15 mg February 12, 2015 take 1 tablet (15 mg) by oral route once daily NovoLog Flexpen [facility] [address]-03 100 unit/mL Sep 07, 2014 10 units by Subcutaneous route 4 times per day PredniSONE [facility] [address]-69 10 MG Orally Twice a day Jul 18, 2015Jun 1 tablet with food or milk Famotidine [facility] [address]-97 20 mg Jan 15, 2015 take 1 tablet (20 mg) by oral route 2 times per day metformin ND 0 500 mg Nov 13, 2014 1 tablet by Oral route 2 times per day Diflucan [facility] [address]-11 100 mg February 09, 2015 1 tablet by Oral route 1 time per day for 5 days Combivent Respimat [facility] [address]-50 20-100 mcg/actuation May 03, 2014 inhale 1 puff ; may take additional puffs as needed 4 times per day not to exceed 6 puffs in 24hrs Nitroglycerin [facility] [address]-92 0.4 mg April 03, 2014 [address] 1 tablet by Buccal route 1 time per day until relief is obtained PRN Symbicort [facility] [address]-60 80-4.5 mcg/actuation April 03, 2014 inhale 2 puffs by inhalation route 2 times per day in the morning and evening ProAir HFA [facility] [address]-98 90 mcg/actuation April 03, 2014 inhale 2 puffs by Inhalation route every 4 hours as needed PRN shortness of breath/ cough levothyroxine ND 0 50 mcg Jan 15, 2015 1 tablet by Oral route 1 time per day NEW DOSE Neurontin [facility] [address]-94 300 mg Jan 15, 2015 2 capsule by Oral route 3 times per day Lipitor [facility] [address]-91 40 mg Jan 19, 2015 1 tablet by Oral route 1 time per day Azithromycin [facility] [address]-66 250 MG Orally Once a day Jul 18, 2015 Jul 23, 2015 2 tablets on the first day, then 1 tablet daily for 4 days Procedures Procedure Coding System Code Date Office Visit, Est Pt., Level 3 CPT-4 44728 Jul 18, 2015 Vital Signs Date/Time: Jul 18, 2015 Temperature 97.5 F Weight 213 lbs Height 67 in BMI 33.36 Index Blood Pressure Diastolic 88 mmHg Blood Pressure Systolic 144 mmHg Cardiac Monitoring Heart Rate 80 bpm Results No Known Results Summary Purpose eClinicalWorks Submission
--- OUTSIDE RECORDS SUMMARY | 2018-01-10 06:47 | XMS REPORT ---
Author Author ETELVINA LEONARD [facility] eClinical[employer] Address Unknown Phone Unavailable Care Team Providers Care Account Service Associate Name Role Phone ETELVINA LEONARD CP Unavailable [...]
--- OUTSIDE RECORDS SUMMARY | 2018-01-10 06:54 | XMS REPORT | Continuity of Care Document ---
Author Author [facility] Address Unknown Phone Unavailable Allergies Active Description Code Type Severity Reaction Onset Reported/Identified Relationship to Patient Clinical Status Yes codeine Drug Allergy N/A N/A 01/02/2009 Yes Penicillins Drug Allergy N/A N/A 01/02/2009 Yes codeine Drug Allergy 01/02/2009 Yes Penicillins Drug Allergy 01/02/2009 Yes aspirin Drug Allergy N/A N/A 12/02/2012 Yes aspirin Drug Allergy 12/02/2012 Yes peanut Drug Allergy N/A N/A 2014 Yes aspirin [id number] Drug Allergy Mild Nausea 02/19/2015 Yes codeine [id number] Drug Allergy Mild Nausea 02/19/2015 Yes tramadol [id number] Drug Allergy Mild N/V 07/16/2015 Yes Penicillins [id number] Drug Allergy Mild Hives 03/05/2016 Yes amlodipine besylate [id number] Drug Allergy Unknown N/A 03/05/2016 Yes benazepril HCl [id number] Drug Allergy Unknown N/A 03/05/2016 Yes Zovhppt-Zjw-Mex Reductase Inhibitor [id number] Drug Allergy Unknown N/A 04/2016 Medications There is no data. Problems Date Dx Coded Attending Type Code Diagnosis Diagnosed By 06/27/2008 LAURIE MORA APRN 250.02 DIABETES MELLITUS TYPE II - UNCOMPLICATED, UNCONTROLLED 06/27/2008 250.02 Diabetes Mellitus Type Ii - Uncomplicated, Uncontrolled 06/27/2008 LAURIE MORA APRN 250.02 Diabetes Mellitus Type Ii - Uncomplicated, Uncontrolled 06/27/2008 LAURIE MORA APRN 250.02 Diabetes Mellitus Type Ii - Uncomplicated, Uncontrolled 06/27/2008 AMADO OLVERA, ROMELIA 250.02 Diabetes Mellitus Type Ii - Uncomplicated, Uncontrolled 06/27/2008 KARYN OLVERA, BYRON Bruner 250.02 Diabetes Mellitus Type Ii - Uncomplicated, Uncontrolled 06/27/2008 250.02 Diabetes Mellitus Type Ii - Uncomplicated, Uncontrolled 06/27/2008 250.02 Diabetes Mellitus Type Ii - Uncomplicated, Uncontrolled 06/27/2008 250.02 Diabetes Mellitus Type Ii - Uncomplicated, Uncontrolled 06/27/2008 250.02 Diabetes Mellitus Type Ii - Uncomplicated, Uncontrolled 06/27/2008 KARYN OLVERA, BYRON Bruner 250.02 Diabetes Mellitus Type Ii - Uncomplicated, Uncontrolled 06/27/2008 KARYN OLVERA, BYRON Bruner 250.02 Diabetes Mellitus Type Ii - Uncomplicated, Uncontrolled 06/27/2008 LADONNA SALGUERO DO K 250.02 Diabetes Mellitus Type Ii - Uncomplicated, Uncontrolled 06/27/2008 KARYN OLVERA, BYRON Bruner 250.02 Diabetes Mellitus Type Ii - Uncomplicated, Uncontrolled 06/27/2008 TERE SALGUERO DOA K 250.02 Diabetes Mellitus Type Ii - Uncomplicated, Uncontrolled 06/27/2008 KARYN OLVERA, BYRON Bruner 250.02 Diabetes Mellitus Type Ii - Uncomplicated, Uncontrolled 06/27/2008 KARYN OLVERA, BYRON Bruner 250.02 Diabetes Mellitus Type Ii - Uncomplicated, Uncontrolled 06/27/2008 TERE SALGUERO DOA K 250.02 Diabetes Mellitus Type Ii - Uncomplicated, Uncontrolled 06/27/2008 NOEMY PRAKASH LADONNA K 250.02 Diabetes Mellitus Type Ii - Uncomplicated, Uncontrolled 06/27/2008 NOEMY PRAKASH LADONNA K 250.02 Diabetes Mellitus Type Ii - Uncomplicated, Uncontrolled 06/27/2008 NOEMY PRAKASH LADONNA K 250.02 Diabetes Mellitus Type Ii - Uncomplicated, Uncontrolled 06/27/2008 [employer] ROOM OPERATOR, ETELVINA L 250.02 Diabetes Mellitus Type Ii - Uncomplicated, Uncontrolled 06/27/2008 MADL [employer] CONTR[employer] ROOM OPERATOR, ETELVINA L 250.02 Diabetes Mellitus Type Ii - Uncomplicated, Uncontrolled 06/27/2008 MADL [employer] CONTR[employer] ROOM OPERATOR, ETELVINA L 250.02 Diabetes Mellitus Type Ii - Uncomplicated, Uncontrolled 06/27/2008 SALGUERO DO LADONNA K 250.02 Diabetes Mellitus Type Ii - Uncomplicated, Uncontrolled 06/27/2008 NOEMY PRAKASH LADONNA K 250.02 Diabetes Mellitus Type Ii - Uncomplicated, Uncontrolled 06/27/2008 [employer] CONTR[employer] ROOM OPERATOR, ETELVINA L 250.02 Diabetes Mellitus Type Ii - Uncomplicated, Uncontrolled 06/27/2008 MAD[employer] CONTR[employer] ROOM OPERATOR, ETELVINA L 250.02 Diabetes Mellitus Type Ii - Uncomplicated, Uncontrolled 06/27/2008 MAD[employer] CONTR[employer] ROOM OPERATOR, ETELVINA L 250.02 Diabetes Mellitus Type Ii - Uncomplicated, Uncontrolled 06/27/2008 MAD[employer] CONTR[employer] ROOM OPERATOR, ETELVINA L 250.02 Diabetes Mellitus Type Ii - Uncomplicated, Uncontrolled 06/27/2008 MAD[employer] CONTR[employer] ROOM OPERATOR, ETELVINA L 250.02 Diabetes Mellitus Type Ii - Uncomplicated, Uncontrolled 06/27/2008 MAD[employer] CONTR[employer] ROOM OPERATOR, ETELVINA L 250.02 Diabetes Mellitus Type Ii - Uncomplicated, Uncontrolled 06/27/2008 MAD[employer] CONTR[employer] ROOM OPERATOR, ETELVINA L 250.02 Diabetes Mellitus Type Ii - Uncomplicated, Uncontrolled 06/27/2008 SALGUERO DO, LADONNA K 250.02 Diabetes Mellitus Type Ii - Uncomplicated, Uncontrolled 06/27/2008 SALGUERO DO, LADONNA K 250.02 Diabetes Mellitus Type Ii - Uncomplicated, Uncontrolled 06/27/2008 MAD[employer] CONTR[employer] ROOM OPERATOR, ETELVINA L 250.02 Diabetes Mellitus Type Ii - Uncomplicated, Uncontrolled 06/27/2008 SALGUERO DO, LADONNA K 250.02 Diabetes Mellitus Type Ii - Uncomplicated, Uncontrolled 06/27/2008 [employer] CONTR[employer] ROOM OPERATOR, ETELVINA L 250.02 Diabetes Mellitus Type Ii - Uncomplicated, Uncontrolled 09/27/2008 MORGAN HARRIS LAURIE S 250.00 DIABETES MELLITUS 09/27/2008 PALOMA MORA APRNNDA S 401.1 ESSENTIAL HYPERTENSION BENIGN 09/27/2008 250.00 DIABETES MELLITUS 09/27/2008 401.1 ESSENTIAL HYPERTENSION BENIGN 09/27/2008 MORGAN HARRIS LAURIE S 250.00 DIABETES MELLITUS 09/27/2008 MORGAN HARRIS LAURIE S 401.1 ESSENTIAL HYPERTENSION BENIGN 09/27/2008 MORGAN HARRIS LAURIE S 250.00 DIABETES MELLITUS 09/27/2008 PALOMA MORA APRNNDA S 401.1 ESSENTIAL HYPERTENSION BENIGN 09/27/2008 ROMELIA FISCHER MD 250.00 DIABETES MELLITUS 09/27/2008 ROMELIA FISCHER MD 401.1 ESSENTIAL HYPERTENSION BENIGN 09/27/2008 BYRON BOSS MD 250.00 DIABETES MELLITUS 09/27/2008 BYRON BOSS MD 401.1 ESSENTIAL HYPERTENSION BENIGN 09/27/2008 250.00 DIABETES MELLITUS 09/27/2008 401.1 ESSENTIAL HYPERTENSION BENIGN 09/27/2008 250.00 DIABETES MELLITUS 09/27/2008 401.1 ESSENTIAL HYPERTENSION BENIGN 09/27/2008 250.00 DIABETES MELLITUS 09/27/2008 401.1 ESSENTIAL HYPERTENSION BENIGN 09/27/2008 250.00 DIABETES MELLITUS 09/27/2008 401.1 ESSENTIAL HYPERTENSION BENIGN 09/27/2008 BYRON BOSS MD 250.00 DIABETES MELLITUS 09/27/2008 BYRON BOSS MD 401.1 ESSENTIAL HYPERTENSION BENIGN 09/27/2008 BYRON BOSS MD 250.00 DIABETES MELLITUS 09/27/2008 BYRON BOSS MD 401.1 ESSENTIAL HYPERTENSION BENIGN 09/27/2008 SALGUERO DO, LADONNA K 250.00 DIABETES MELLITUS 09/27/2008 SALGUERO DO, LADONNA K 401.1 ESSENTIAL HYPERTENSION BENIGN 09/27/2008 BYRON BOSS MD 250.00 DIABETES MELLITUS 09/27/2008 BYRON BOSS MD 401.1 ESSENTIAL HYPERTENSION BENIGN 09/27/2008 SALGUERO DO, LADONNA K 250.00 DIABETES MELLITUS 09/27/2008 SALGUERO DO, LADONNA K 401.1 ESSENTIAL HYPERTENSION BENIGN 09/27/2008 BYRON BOSS MD 250.00 DIABETES MELLITUS 09/27/2008 BYRON BOSS MD 401.1 ESSENTIAL HYPERTENSION BENIGN 09/27/2008 BYRON BOSS MD M 250.00 DIABETES MELLITUS 09/27/2008 BYRON BOSS MD 401.1 ESSENTIAL HYPERTENSION BENIGN 09/27/2008 SALGUERO DO, LADONNA K 250.00 DIABETES MELLITUS 09/27/2008 SALGUERO DO, LADONNA K 401.1 ESSENTIAL HYPERTENSION BENIGN 09/27/2008 SALGUERO DO, LADONNA K 250.00 DIABETES MELLITUS 09/27/2008 SALGUERO DO, LADONNA K 401.1 ESSENTIAL HYPERTENSION BENIGN 09/27/2008 SALGUERO DO, LADONNA K 250.00 DIABETES MELLITUS 09/27/2008 SALGUERO DO, LADONNA K 401.1 ESSENTIAL HYPERTENSION BENIGN 09/27/2008 SALGUERO DO, LADONNA K 250.00 DIABETES MELLITUS 09/27/2008 SALGUERO DO, LADONNA K 401.1 ESSENTIAL HYPERTENSION BENIGN 09/27/2008 MADL [employer] CONTR[employer] ROOM OPERATOR, ETELVINA L 250.00 DIABETES MELLITUS 09/27/2008 MADL [employer] CONTROL ROOM OPERATOR, ETELVINA L 401.1 ESSENTIAL HYPERTENSION BENIGN 09/27/2008 MADL [employer] CONTROL ROOM OPERATOR, ETELVINA L 250.00 DIABETES MELLITUS 09/27/2008 MADL [employer] CONTROL ROOM OPERATOR, ETELVNIA L 401.1 ESSENTIAL HYPERTENSION BENIGN 09/27/2008 MADL [employer] CONTROL ROOM OPERATOR, ETELVINA L 250.00 DIABETES MELLITUS 09/27/2008 MADL [employer] CONTROL ROOM OPERATOR, ETELVINA L 401.1 ESSENTIAL HYPERTENSION BENIGN 09/27/2008 SALGUERO DO, LADONNA K 250.00 DIABETES MELLITUS 09/27/2008 SALGUERO DO, LADONNA K 401.1 ESSENTIAL HYPERTENSION BENIGN 09/27/2008 SALGUERO DO, LADONNA K 250.00 DIABETES MELLITUS 09/27/2008 SALGUERO DO, LADONNA K 401.1 ESSENTIAL HYPERTENSION BENIGN 09/27/2008 MADL [employer] CONTROL ROOM OPERATOR, ETELVINA L 250.00 DIABETES MELLITUS 09/27/2008 MADL [employer] CONTROL ROOM OPERATOR, ETELVINA L 401.1 ESSENTIAL HYPERTENSION BENIGN 09/27/2008 MADL [employer] CONTROL ROOM OPERATOR, ETELVINA L 250.00 DIABETES MELLITUS 09/27/2008 MADL [employer] CONTROL ROOM OPERATOR, ETELVINA L 401.1 ESSENTIAL HYPERTENSION BENIGN 09/27/2008 MADL STE[employer] CONTROL ROOM OPERATOR, ETELVINA L 250.00 DIABETES MELLITUS 09/27/2008 MADL [employer] CONTROL ROOM OPERATOR, ETELVINA L 401.1 ESSENTIAL HYPERTENSION BENIGN 09/27/2008 MADL STE[employer] CONTROL ROOM OPERATOR, ETELVINA L 250.00 DIABETES MELLITUS 09/27/2008 MADL STE[employer] CONTROL ROOM OPERATOR, ETELVINA L 401.1 ESSENTIAL HYPERTENSION BENIGN 09/27/2008 MADL STE[employer] CONTROL ROOM OPERATOR, ETELVINA L 250.00 DIABETES MELLITUS 09/27/2008 MADL STE[employer] CONTROL ROOM OPERATOR, ETELVINA L 401.1 ESSENTIAL HYPERTENSION BENIGN 09/27/2008 MADL STE[employer] CONTROL ROOM OPERATOR, ETELVINA L 250.00 DIABETES MELLITUS 09/27/2008 MADL [employer] CONTROL ROOM OPERATOR, ETELVINA L 401.1 ESSENTIAL HYPERTENSION BENIGN 09/27/2008 MADL [employer] CONTROL ROOM OPERATOR, ETELVINA L 250.00 DIABETES MELLITUS 09/27/2008 MADL [employer] CONTROL ROOM OPERATOR, ETELVINA L 401.1 ESSENTIAL HYPERTENSION BENIGN 09/27/2008 SALGUERO DO, LADONNA K 250.00 DIABETES MELLITUS 09/27/2008 SALGUERO DO, LADONNA K 401.1 ESSENTIAL HYPERTENSION BENIGN 09/27/2008 SALGUERO DO, LADONNA K 250.00 DIABETES MELLITUS 09/27/2008 SALGUERO DO, LADONNA K 401.1 ESSENTIAL HYPERTENSION BENIGN 09/27/2008 MADL [employer] CONTROL ROOM OPERATOR, ETELVINA L 250.00 DIABETES MELLITUS 09/27/2008 MADL [employer] CONTROL ROOM OPERATOR, ETELVINA L 401.1 ESSENTIAL HYPERTENSION BENIGN 09/27/2008 SALGUERO DO, LADONNA K 250.00 DIABETES MELLITUS 09/27/2008 TERE SALGUERO DOA K 401.1 ESSENTIAL HYPERTENSION BENIGN 09/27/2008 MADL [employer] CONTROL ROOM OPERATOR, ETELVINA L 250.00 DIABETES MELLITUS 09/27/2008 MADL [employer] CONTROL ROOM OPERATOR, ETELVINA L 401.1 ESSENTIAL HYPERTENSION BENIGN 11/01/2008 MORGAN HARRIS LAURIE S 719.46 Pain In Joint Involving Lower Leg 11/01/2008 719.46 Pain In Joint Involving Lower Leg 11/01/2008 PALOMA MORA APRNNDA S 719.46 Pain In Joint Involving Lower Leg 11/01/2008 PALOMA MORA APRNNDA S 719.46 Pain In Joint Involving Lower Leg 11/01/2008 ROMELIA FISCHER MD 719.46 Pain In Joint Involving Lower Leg 11/01/2008 BYRON BOSS MD 719.46 Pain In Joint Involving Lower Leg 11/01/2008 719.46 Pain In Joint Involving Lower Leg 11/01/2008 719.46 Pain In Joint Involving Lower Leg 11/01/2008 719.46 Pain In Joint Involving Lower Leg 11/01/2008 719.46 Pain In Joint Involving Lower Leg 11/01/2008 BYRON BOSS MD 719.46 Pain In Joint Involving Lower Leg 11/01/2008 BYRON BOSS MD9.46 Pain In Joint Involving Lower Leg 11/01/2008 LADONNA SALGUERO DO 719.46 Pain In Joint Involving Lower Leg 11/01/2008 BYRON BOSS MD 719.46 Pain In Joint Involving Lower Leg 11/01/2008 LADONNA SALGUERO DO 719.46 Pain In Joint Involving Lower Leg 11/01/2008 BYRON BOSS MD 719.46 Pain In Joint Involving Lower Leg 11/01/2008 BYRON BOSS MD9.46 Pain In Joint Involving Lower Leg 11/01/2008 LADONNA SALGUERO DO 719.46 Pain In Joint Involving Lower Leg 11/01/2008 LADONNA SALGUERO DO 719.46 Pain In Joint Involving Lower Leg 11/01/2008 LADONNA SALGUERO DO 719.46 Pain In Joint Involving Lower Leg 11/01/2008 LADONNA SALGUERO DO 719.46 Pain In Joint Involving Lower Leg 11/01/2008 MAD[employer] CONTR[employer] ROOM OPERATOR, ETELVINA L 719.46 Pain In Joint Involving Lower Leg 11/01/2008 MADL [employer] CONTROL ROOM OPERATOR, ETELVINA L 719.46 Pain In Joint Involving Lower Leg 11/01/2008 MADL [employer] CONTROL ROOM OPERATOR, ETELVINA L 719.46 Pain In Joint Involving Lower Leg 11/01/2008 NOEMY DOLADONNA K 719.46 Pain In Joint Involving Lower Leg 11/01/2008 LADONNA SALGUERO DO K 719.46 Pain In Joint Involving Lower Leg 11/01/2008 MADL [employer] CONTROL ROOM OPERATOR, ETELVINA L 719.46 Pain In Joint Involving Lower Leg 11/01/2008 MADL [employer] CONTROL ROOM OPERATOR, ETELVINA L 719.46 Pain In Joint Involving Lower Leg 11/01/2008 MADL [employer] CONTROL ROOM OPERATOR, ETELVINA L 719.46 Pain In Joint Involving Lower Leg 11/01/2008 MADL [employer] CONTROL ROOM OPERATOR, ETELVINA L 719.46 Pain In Joint Involving Lower Leg 11/01/2008 MADL [employer] CONTROL ROOM OPERATOR, ETELVINA L 719.46 Pain In Joint Involving Lower Leg 11/01/2008 MADL [employer] CONTROL ROOM OPERATOR, ETELVINA L 719.46 Pain In Joint Involving Lower Leg 11/01/2008 MADL [employer] CONTROL ROOM OPERATOR, ETELVINA L 719.46 Pain In Joint Involving Lower Leg 11/01/2008 NOEMY DOLADONNA K 719.46 Pain In Joint Involving Lower Leg 11/01/2008 LADONNA SALGUERO DO K 719.46 Pain In Joint Involving Lower Leg 11/01/2008 MADL [employer] CONTROL ROOM OPERATOR, ETELVINA L 719.46 Pain In Joint Involving Lower Leg 11/01/2008 NOEMY DOLADONNA K 719.46 Pain In Joint Involving Lower Leg 11/01/2008 M[employer] CONTR[employer] ROOM OPERATOR, ETELVINA L 719.46 Pain In Joint Involving Lower Leg 12/12/2008 LAURIE MORA APRN S 496 COPD 12/12/2008 LAURIE MORA APRN S 728.85 Spasm Of Muscle 12/12/2008 496 COPD 12/12/2008 728.85 Spasm Of Muscle 12/12/2008 LAURIE MORA APRN S 496 COPD 12/12/2008 LAURIE MORA APRN S 728.85 Spasm Of Muscle 12/12/2008 LAURIE MORA APRN S 496 COPD 12/12/2008 LAURIE MORA APRN S 728.85 Spasm Of Muscle 12/12/2008 ROMELIA FISCHER MD 496 COPD 12/12/2008 ROMELIA FISCHER MD 728.85 Spasm Of Muscle 12/12/2008 BYRON BOSS MD 496 CHRONIC OBSTRUCTIVE PULMONARY DISEASE 12/12/2008 BYRON BOSS MD 728.85 Spasm Of Muscle 12/12/2008 496 CHRONIC OBSTRUCTIVE PULMONARY DISEASE 12/12/2008 728.85 Spasm Of Muscle 12/12/2008 496 CHRONIC OBSTRUCTIVE PULMONARY DISEASE 12/12/2008 728.85 Spasm Of Muscle 12/12/2008 496 CHRONIC OBSTRUCTIVE PULMONARY DISEASE 12/12/2008 728.85 Spasm Of Muscle 12/12/2008 496 CHRONIC OBSTRUCTIVE PULMONARY DISEASE 12/12/2008 728.85 Spasm Of Muscle 12/12/2008 BYRON BOSS MD 496 CHRONIC OBSTRUCTIVE PULMONARY DISEASE 12/12/2008 BYRON BOSS MD 728.85 Spasm Of Muscle 12/12/2008 BYRON BOSS MD 496 CHRONIC OBSTRUCTIVE PULMONARY DISEASE 12/12/2008 BYRON BOSS MD 728.85 Spasm Of Muscle 12/12/2008 LADNONA SALGUERO DO K 496 CHRONIC OBSTRUCTIVE PULMONARY DISEASE 12/12/2008 LADONNA SALGUERO DO K 728.85 Spasm Of Muscle 12/12/2008 BYRON BOSS MD 496 CHRONIC OBSTRUCTIVE PULMONARY DISEASE 12/12/2008 BYRON BOSS MD 728.85 Spasm Of Muscle 12/12/2008 TERE SALGUERO DOA K 496 CHRONIC OBSTRUCTIVE PULMONARY DISEASE 12/12/2008 TERE SALGUERO DOA K 728.85 Spasm Of Muscle 12/12/2008 BYRON BOSS MD 496 CHRONIC OBSTRUCTIVE PULMONARY DISEASE 12/12/2008 BYRON BOSS MD 728.85 Spasm Of Muscle 12/12/2008 BYRON BOSS MD 496 CHRONIC OBSTRUCTIVE PULMONARY DISEASE 12/12/2008 BYRON BOSS MD 728.85 Spasm Of Muscle 12/12/2008 LADONNA SALGUERO DO K 496 CHRONIC OBSTRUCTIVE PULMONARY DISEASE 12/12/2008 SALGUERO DO, LADONNA K 728.85 Spasm Of Muscle 12/12/2008 SALGUERO DO, LADONNA K 496 CHRONIC OBSTRUCTIVE PULMONARY DISEASE 12/12/2008 SALGUERO DO, LADONNA K 728.85 Spasm Of Muscle 12/12/2008 SALGUERO DO, LADONNA K 496 CHRONIC OBSTRUCTIVE PULMONARY DISEASE 12/12/2008 SALGUERO DO, LADONNA K 728.85 Spasm Of Muscle 12/12/2008 SALGUERO DO, LADONNA K 496 CHRONIC OBSTRUCTIVE PULMONARY DISEASE 12/12/2008 SALGUERO DO, LADONNA K 728.85 Spasm Of Muscle 12/12/2008 MAD[employer] CONTROL ROOM OPERATOR, ETELVINA L 496 CHRONIC OBSTRUCTIVE PULMONARY DISEASE 12/12/2008 MADL [employer] CONTROL ROOM OPERATOR, ETELVINA L 728.85 Spasm Of Muscle 12/12/2008 MADL [employer] CONTROL ROOM OPERATOR, ETELVINA L 496 CHRONIC OBSTRUCTIVE PULMONARY DISEASE 12/12/2008 MADL [employer] CONTROL ROOM OPERATOR, ETELVINA L 728.85 Spasm Of Muscle 12/12/2008 MADL [employer] CONTROL ROOM OPERATOR, ETELVINA L 496 CHRONIC OBSTRUCTIVE PULMONARY DISEASE 12/12/2008 MADL [employer] CONTROL ROOM OPERATOR, ETELVINA L 728.85 Spasm Of Muscle 12/12/2008 SALGUERO DO, LADONNA K 496 CHRONIC OBSTRUCTIVE PULMONARY DISEASE 12/12/2008 SALGUERO DO, LADONNA K 728.85 Spasm Of Muscle 12/12/2008 SALGUERO DO, LADONNA K 496 CHRONIC OBSTRUCTIVE PULMONARY DISEASE 12/12/2008 SALGUERO DO, LADONNA K 728.85 Spasm Of Muscle 12/12/2008 MAD[employer] CONTROL ROOM OPERATOR, ETELVINA L 496 CHRONIC OBSTRUCTIVE PULMONARY DISEASE 12/12/2008 MADL [employer] CONTROL ROOM OPERATOR, ETELVINA L 728.85 Spasm Of Muscle 12/12/2008 MADL [employer] CONTROL ROOM OPERATOR, ETELVINA L 496 CHRONIC OBSTRUCTIVE PULMONARY DISEASE 12/12/2008 MADL [employer] CONTROL ROOM OPERATOR, ETELVINA L 728.85 Spasm Of Muscle 12/12/2008 MADL [employer] CONTROL ROOM OPERATOR, ETELVINA L 496 CHRONIC OBSTRUCTIVE PULMONARY DISEASE 12/12/2008 MADL [employer] CONTROL ROOM OPERATOR, ETELVINA L 728.85 Spasm Of Muscle 12/12/2008 MADL [employer] CONTROL ROOM OPERATOR, ETELVINA L 496 CHRONIC OBSTRUCTIVE PULMONARY DISEASE 12/12/2008 MADL [employer] CONTROL ROOM OPERATOR, ETELVINA L 728.85 Spasm Of Muscle 12/12/2008 MADL [employer] CONTROL ROOM OPERATOR, ETELVINA L 496 CHRONIC OBSTRUCTIVE PULMONARY DISEASE 12/12/2008 MADL [employer] CONTROL ROOM OPERATOR, ETELVINA L 728.85 Spasm Of Muscle 12/12/2008 MADL [employer] CONTROL ROOM OPERATOR, ETELVINA L 496 CHRONIC OBSTRUCTIVE PULMONARY DISEASE 12/12/2008 MADL [employer] CONTROL ROOM OPERATOR, ETELVINA L 728.85 Spasm Of Muscle 12/12/2008 MADL [employer] CONTROL ROOM OPERATOR, ETELVINA L 496 CHRONIC OBSTRUCTIVE PULMONARY DISEASE 12/12/2008 MADL [employer] CONTROL ROOM OPERATOR, ETELVINA L 728.85 Spasm Of Muscle 12/12/2008 SALGUERO DO, LADONNA K 496 CHRONIC OBSTRUCTIVE PULMONARY DISEASE 12/12/2008 SALGUERO DO, LADONNA K 728.85 Spasm Of Muscle 12/12/2008 SALGUERO DO, LADONNA K 496 CHRONIC OBSTRUCTIVE PULMONARY DISEASE 12/12/2008 SALGUERO DO, LADONNA K 728.85 Spasm Of Muscle 12/12/2008 MAD[employer] CONTROL ROOM OPERATOR, ETELVINA L 496 CHRONIC OBSTRUCTIVE PULMONARY DISEASE 12/12/2008 MADL [employer] CONTROL ROOM OPERATOR, ETELVINA L 728.85 Spasm Of Muscle 12/12/2008 SALGUERO DO, LADONNA K 496 CHRONIC OBSTRUCTIVE PULMONARY DISEASE 12/12/2008 SALGUERO DO, LADONNA K 728.85 Spasm Of Muscle 12/12/2008 MADL [employer] CONTROL ROOM OPERATOR, ETELVINA L 496 CHRONIC OBSTRUCTIVE PULMONARY DISEASE 12/12/2008 MADL [employer] CONTROL ROOM OPERATOR, ETELVINA L 728.85 Spasm Of Muscle 01/11/2009 LAURIE MORA APRN S 786.50 Chest Pain Or Discomfort 01/11/2009 786.50 Chest Pain Or Discomfort 01/11/2009 LAURIE MORA APRN S 786.50 Chest Pain Or Discomfort 01/11/2009 LAURIE MORA APRN S 786.50 Chest Pain Or Discomfort 01/11/2009 ROMELIA FISCHER MD 786.50 Chest Pain Or Discomfort 01/11/2009 BYRON BOSS MD 786.50 Chest Pain Or Discomfort 01/11/2009 786.50 Chest Pain Or Discomfort 01/11/2009 786.50 Chest Pain Or Discomfort 01/11/2009 786.50 Chest Pain Or Discomfort 01/11/2009 786.50 Chest Pain Or Discomfort 01/11/2009 BYRON BOSS MD 786.50 Chest Pain Or Discomfort 01/11/2009 KARYN MD, BYRON M 786.50 Chest Pain Or Discomfort 01/11/2009 SALGUERO DO, LADONNA K 786.50 Chest Pain Or Discomfort 01/11/2009 BYRON BOSS MD 786.50 Chest Pain Or Discomfort 01/11/2009 SALGUERO DO, LADONNA K 786.50 Chest Pain Or Discomfort 01/11/2009 BYRON BOSS MD 786.50 Chest Pain Or Discomfort 01/11/2009 BYRON BOSS MD 786.50 Chest Pain Or Discomfort 01/11/2009 SALGUERO DO, LADONNA K 786.50 Chest Pain Or Discomfort 01/11/2009 SALGUERO DO, LADONNA K 786.50 Chest Pain Or Discomfort 01/11/2009 SALGUERO DO, LADONNA K 786.50 Chest Pain Or Discomfort 01/11/2009 SALGUERO DO, LADONNA K 786.50 Chest Pain Or Discomfort 01/11/2009 M[employer] CONTROL ROOM OPERATOR, ETELVINA L 786.50 Chest Pain Or Discomfort 01/11/2009 MAD[employer] CONTROL ROOM OPERATOR, ETELVINA L 786.50 Chest Pain Or Discomfort 01/11/2009 MAD[employer] CONTROL ROOM OPERATOR, ETELVINA L 786.50 Chest Pain Or Discomfort 01/11/2009 SALGUERO DO, LADONNA K 786.50 Chest Pain Or Discomfort 01/11/2009 SALGUERO DO, LADONNA K 786.50 Chest Pain Or Discomfort 01/11/2009 M[employer] CONTROL ROOM OPERATOR, ETELVINA L 786.50 Chest Pain Or Discomfort 01/11/2009 MADL [employer] CONTROL ROOM OPERATOR, ETELVINA L 786.50 Chest Pain Or Discomfort 01/11/2009 MADL [employer] CONTROL ROOM OPERATOR, ETELVINA L 786.50 Chest Pain Or Discomfort 01/11/2009 MADL [employer] CONTROL ROOM OPERATOR, ETELVINA L 786.50 Chest Pain Or Discomfort 01/11/2009 MAD[employer] CONTROL ROOM OPERATOR, ETELVINA L 786.50 Chest Pain Or Discomfort 01/11/2009 MAD[employer] CONTROL ROOM OPERATOR, ETELVINA L 786.50 Chest Pain Or Discomfort 01/11/2009 MADL [employer] CONTROL ROOM OPERATOR, ETELVINA L 786.50 Chest Pain Or Discomfort 01/11/2009 SALGUERO DO, LADONNA K 786.50 Chest Pain Or Discomfort 01/11/2009 SALGUERO DO, LADONNA K 786.50 Chest Pain Or Discomfort 01/11/2009 MAD[employer] CONTROL ROOM OPERATOR, ETELVINA L 786.50 Chest Pain Or Discomfort 01/11/2009 SALGUERO DO, LADONNA K 786.50 Chest Pain Or Discomfort 01/11/2009 M[employer] CONTR[employer] ROOM OPERATOR, ETELVINA L 786.50 Chest Pain Or Discomfort 02/20/2009 MORGAN [employer] CONTR[employer] ROOM OPERATOR, LAURIE S 709.9 Dermatology - Skin Condition 02/20/2009 709.9 Dermatology - Skin Condition 02/20/2009 MORGAN [employer] CONTR[employer] ROOM OPERATOR, LAURIE S 709.9 Dermatology - Skin Condition 02/20/2009 MORGAN [employer] CONTROL ROOM OPERATOR, LAURIE S 709.9 Dermatology - Skin Condition 02/20/2009 ROMELIA FISCHER MD 709.9 Dermatology - Skin Condition 02/20/2009 BYRON BOSS MD 709.9 Dermatology - Skin Condition 02/20/2009 709.9 Dermatology - Skin Condition 02/20/2009 709.9 Dermatology - Skin Condition 02/20/2009 709.9 Dermatology - Skin Condition 02/20/2009 709.9 Dermatology - Skin Condition 02/20/2009 BYRON BOSS MD 709.9 Dermatology - Skin Condition 02/20/2009 BYRON BOSS MD 709.9 Dermatology - Skin Condition 02/20/2009 SALGUERO DO LADONNA K 709.9 Dermatology - Skin Condition 02/20/2009 BYRON BOSS MD 709.9 Dermatology - Skin Condition 02/20/2009 SALGUERO DO LADONNA K 709.9 Dermatology - Skin Condition 02/20/2009 BYRON BOSS MD 709.9 Dermatology - Skin Condition 02/20/2009 BYRON BOSS MD 709.9 Dermatology - Skin Condition 02/20/2009 SALGUERO DO, LADONNA K 709.9 Dermatology - Skin Condition 02/20/2009 SALGUERO DO, LADONNA K 709.9 Dermatology - Skin Condition 02/20/2009 SALGUERO DO, LADONNA K 709.9 Dermatology - Skin Condition 02/20/2009 SALGUERO DO, LADONNA K 709.9 Dermatology - Skin Condition 02/20/2009 [employer]OM OPERATOR, ETELVINA L 709.9 Dermatology - Skin Condition 02/20/2009 [employer] ROOM OPERATOR, ETELVINA L 709.9 Dermatology - Skin Condition 02/20/2009 [employer] ROOM OPERATOR, ETELVINA L 709.9 Dermatology - Skin Condition 02/20/2009 SALGUERO DO, LADONNA K 709.9 Dermatology - Skin Condition 02/20/2009 SALGUERO DO, LADONNA K 709.9 Dermatology - Skin Condition 02/20/2009 [employer] ROOM OPERATOR, ETELVINA L 709.9 Dermatology - Skin Condition 02/20/2009 [employer] ROOM OPERATOR, ETELVINA L 709.9 Dermatology - Skin Condition 02/20/2009 [employer] ROOM OPERATOR, ETELVINA L 709.9 Dermatology - Skin Condition 02/20/2009 [employer] ROOM OPERATOR, ETELVINA L 709.9 Dermatology - Skin Condition 02/20/2009 [employer] ROOM OPERATOR, ETELVINA L 709.9 Dermatology - Skin Condition 02/20/2009 [employer] ROOM OPERATOR, ETELVINA L 709.9 Dermatology - Skin Condition 02/20/2009 [employer] ROOM OPERATOR, ETELVINA L 709.9 Dermatology - Skin Condition 02/20/2009 SALGUERO DO, LADONNA K 709.9 Dermatology - Skin Condition 02/20/2009 SALGUERO DO, LADONNA K 709.9 Dermatology - Skin Condition 02/20/2009 [employer] ROOM OPERATOR, ETELVINA L 709.9 Dermatology - Skin Condition 02/20/2009 SALGUERO DO, LADONNA K 709.9 Dermatology - Skin Condition 02/20/2009 [employer] ROOM OPERATOR, ETELVINA L 709.9 Dermatology - Skin Condition 04/05/2009 LAURIE MORA APRN S 536.8 Dyspepsia And Other Specified Disorders Of Function Of Stomach 04/05/2009 536.8 Dyspepsia And Other Specified Disorders Of Function Of Stomach 04/05/2009 LAURIE MORA APRN S 536.8 Dyspepsia And Other Specified Disorders Of Function Of Stomach 04/05/2009 LAURIE MORA APRN S 536.8 Dyspepsia And Other Specified Disorders Of Function Of Stomach 04/05/2009 AMADO OLVERA, ROMELIA 536.8 Dyspepsia And Other Specified Disorders Of Function Of Stomach 04/05/2009 KARYN OLVERA, BYRON Bruner 536.8 Dyspepsia And Other Specified Disorders Of Function Of Stomach 04/05/2009 536.8 Dyspepsia And Other Specified Disorders Of Function Of Stomach 04/05/2009 536.8 Dyspepsia And Other Specified Disorders Of Function Of Stomach 04/05/2009 536.8 Dyspepsia And Other Specified Disorders Of Function Of Stomach 04/05/2009 536.8 Dyspepsia And Other Specified Disorders Of Function Of Stomach 04/05/2009 BYRON BOSS MD 536.8 Dyspepsia And Other Specified Disorders Of Function Of Stomach 04/05/2009 BYRON BOSS MD 536.8 Dyspepsia And Other Specified Disorders Of Function Of Stomach 04/05/2009 NOEMY PRAKASH LADONNA K 536.8 Dyspepsia And Other Specified Disorders Of Function Of Stomach 04/05/2009 BYRON BOSS MD 536.8 Dyspepsia And Other Specified Disorders Of Function Of Stomach 04/05/2009 NOEMY PRAKASH LADONNA K 536.8 Dyspepsia And Other Specified Disorders Of Function Of Stomach 04/05/2009 BYRON BOSS MD 536.8 Dyspepsia And Other Specified Disorders Of Function Of Stomach 04/05/2009 BYRON BOSS MD 536.8 Dyspepsia And Other Specified Disorders Of Function Of Stomach 04/05/2009 SALGUERO DO LADONNA K 536.8 Dyspepsia And Other Specified Disorders Of Function Of Stomach 04/05/2009 SALGUERO DO, LADONNA K 536.8 Dyspepsia And Other Specified Disorders Of Function Of Stomach 04/05/2009 SALGUERO DO, LADONNA K 536.8 Dyspepsia And Other Specified Disorders Of Function Of Stomach 04/05/2009 SALGUERO DO, LADONNA K 536.8 Dyspepsia And Other Specified Disorders Of Function Of Stomach 04/05/2009 [employer] ROOM OPERATOR, ETELVINA L 536.8 Dyspepsia And Other Specified Disorders Of Function Of Stomach 04/05/2009 [employer] ROOM OPERATOR, ETELVINA L 536.8 Dyspepsia And Other Specified Disorders Of Function Of Stomach 04/05/2009 [employer] ROOM OPERATOR, ETELVINA L 536.8 Dyspepsia And Other Specified Disorders Of Function Of Stomach 04/05/2009 SALGUERO DO, LADONNA K 536.8 Dyspepsia And Other Specified Disorders Of Function Of Stomach 04/05/2009 SALGUERO DO, LADONNA K 536.8 Dyspepsia And Other Specified Disorders Of Function Of Stomach 04/05/2009 [employer] ROOM OPERATOR ETELVINA L 536.8 Dyspepsia And Other Specified Disorders Of Function Of Stomach 04/05/2009 [employer] ROOM OPERATOR, ETELVINA L 536.8 Dyspepsia And Other Specified Disorders Of Function Of Stomach 04/05/2009 [employer] ROOM OPERATOR, ETELVINA L 536.8 Dyspepsia And Other Specified Disorders Of Function Of Stomach 04/05/2009 [employer] ROOM OPERATOR, ETELVINA L 536.8 Dyspepsia And Other Specified Disorders Of Function Of Stomach 04/05/2009 [employer] ROOM OPERATOR, ETELVINA L 536.8 Dyspepsia And Other Specified Disorders Of Function Of Stomach 04/05/2009 [employer] ROOM OPERATOR, ETELVINA L 536.8 Dyspepsia And Other Specified Disorders Of Function Of Stomach 04/05/2009 [employer] ROOM OPERATOR, ETELVINA L 536.8 Dyspepsia And Other Specified Disorders Of Function Of Stomach 04/05/2009 SALGUERO DO, LADONNA K 536.8 Dyspepsia And Other Specified Disorders Of Function Of Stomach 04/05/2009 SALGUERO DO, LADONNA K 536.8 Dyspepsia And Other Specified Disorders Of Function Of Stomach 04/05/2009 [employer] ROOM OPERATOR, ETELVINA L 536.8 Dyspepsia And Other Specified Disorders Of Function Of Stomach 04/05/2009 SALGUERO DO, LADONNA K 536.8 Dyspepsia And Other Specified Disorders Of Function Of Stomach 04/05/2009 [employer] ROOM OPERATOR, ETELVINA L 536.8 Dyspepsia And Other Specified Disorders Of Function Of Stomach 05/09/2009 LAURIE MORA APRN S 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 05/09/2009 LAURIE MORA APRN S 787.02 Nausea 05/09/2009 327.52 Organic Sleep -related Leg Cramps 05/09/2009 787.02 Nausea 05/09/2009 SUSHANT MORA APRNA S 327.52 Organic Sleep-related Leg Cramps 05/09/2009 SUSHANT MORA APRNA S 787.02 Nausea 05/09/2009 SUSHANT MORA APRNA S 327.52 Organic Sleep-related Leg Cramps 05/09/2009 LAURIE MORA APRN S 787.02 Nausea 05/09/2009 ROMELIA FISCHER MD 327.52 Organic Sleep-related Leg Cramps 05/09/2009 ROMELIA FISCHER MD 787.02 Nausea 05/09/2009 BYRON BOSS MD 327.52 Organic Sleep-related Leg Cramps 05/09/2009 BYRON BOSS MD 787.02 Nausea 05/09/2009 327.52 Organic Sleep -related Leg Cramps 05/09/2009 787.02 Nausea 05/09/2009 327.52 Organic Sleep -related Leg Cramps 05/09/2009 787.02 Nausea 05/09/2009 327.52 Organic Sleep -related Leg Cramps 05/09/2009 787.02 Nausea 05/09/2009 327.52 Organic Sleep -related Leg Cramps 05/09/2009 787.02 Nausea 05/09/2009 BYRON BOSS MD 327.52 Organic Sleep-related Leg Cramps 05/09/2009 BYRON BOSS MD 787.02 Nausea 05/09/2009 BYRON BOSS MD 327.52 Organic Sleep-related Leg Cramps 05/09/2009 BYRON BOSS MD 787.02 Nausea 05/09/2009 LADONNA SALGUERO DO K 327.52 Organic Sleep-related Leg Cramps 05/09/2009 SALGUERO DO LADONNA K 787.02 Nausea 05/09/2009 BYRON BOSS MD 327.52 Organic Sleep-related Leg Cramps 05/09/2009 BYRON BOSS MD 787.02 Nausea 05/09/2009 SALGUERO DO LADONNA K 327.52 Organic Sleep-related Leg Cramps 05/09/2009 SALGUERO DO LADONNA K 787.02 Nausea 05/09/2009 BYRON BOSS MD 327.52 Organic Sleep-related Leg Cramps 05/09/2009 BYRON BOSS MD 787.02 Nausea 05/09/2009 BYRON BOSS MD 327.52 Organic Sleep-related Leg Cramps 05/09/2009 BYRON BOSS MD 787.02 Nausea 05/09/2009 SALGUERO DO LADONNA K 327.52 Organic Sleep-related Leg Cramps 05/09/2009 SALGUERO DO LADONNA K 787.02 Nausea 05/09/2009 SALGUERO DO LADONNA K 327.52 Organic Sleep-related Leg Cramps 05/09/2009 SALGUERO DO, LADONNA K 787.02 Nausea 05/09/2009 SALGUERO DO, LADONNA K 327.52 Organic Sleep-related Leg Cramps 05/09/2009 SALGUERO DO, LADONNA K 787.02 Nausea 05/09/2009 SALGUERO DO, LADONNA K 327.52 Organic Sleep-related Leg Cramps 05/09/2009 SALGUERO DO, LADONNA K 787.02 Nausea 05/09/2009 [employer] ROOM OPERATOR, ETELVINA L 327.52 Organic Sleep-related Leg Cramps 05/09/2009 [employer] ROOM OPERATOR, ETELVINA L 787.02 Nausea 05/09/2009 [employer] ROOM OPERATOR, ETELVINA L 327.52 Organic Sleep-related Leg Cramps 05/09/2009 [employer] ROOM OPERATOR, ETELVINA L 787.02 Nausea 05/09/2009 [employer] ROOM OPERATOR, ETELVINA L 327.52 Organic Sleep-related Leg Cramps 05/09/2009 [employer] ROOM OPERATOR, ETELVINA L 787.02 Nausea 05/09/2009 SALGUERO DO, LADONNA K 327.52 Organic Sleep-related Leg Cramps 05/09/2009 SALGUERO DO, LADONNA K 787.02 Nausea 05/09/2009 SALGUERO DO, LADONNA K 327.52 Organic Sleep-related Leg Cramps 05/09/2009 SALGUERO DO, LADONNA K 787.02 Nausea 05/09/2009 [employer] ROOM OPERATOR, ETELVINA L 327.52 Organic Sleep-related Leg Cramps 05/09/2009 [employer] ROOM OPERATOR, ETELVINA L 787.02 Nausea 05/09/2009 [employer] ROOM OPERATOR, ETELVINA L 327.52 Organic Sleep-related Leg Cramps 05/09/2009 [employer] ROOM OPERATOR, ETELVINA L 787.02 Nausea 05/09/2009 [employer] ROOM OPERATOR, ETELVINA L 327.52 Organic Sleep-related Leg Cramps 05/09/2009 [employer] ROOM OPERATOR, ETELVINA L 787.02 Nausea 05/09/2009 [employer] CONTR[employer] ROOM OPERATOR, ETELVINA L 327.52 Organic Sleep-related Leg Cramps 05/09/2009 [employer] CONTR[employer] ROOM OPERATOR, ETELVINA L 787.02 Nausea 05/09/2009 [employer] ROOM OPERATOR, ETELVINA L 327.52 Organic Sleep-related Leg Cramps 05/09/2009 [employer] ROOM OPERATOR, ETELVINA L 787.02 Nausea 05/09/2009 [employer] ROOM OPERATOR, ETELVINA L 327.52 Organic Sleep-related Leg Cramps 05/09/2009 [employer] ROOM OPERATOR, ETELVINA L 787.02 Nausea 05/09/2009 [employer] ROOM OPERATOR, ETELVINA L 327.52 Organic Sleep-related Leg Cramps 05/09/2009 [employer] CONTR[employer] ROOM OPERATOR, ETELVINA L 787.02 Nausea 05/09/2009 SALGUERO DO, LADONNA K 327.52 Organic Sleep-related Leg Cramps 05/09/2009 SALGUERO DO, LADONNA K 787.02 Nausea 05/09/2009 SALGUERO DO, LADONNA K 327.52 Organic Sleep-related Leg Cramps 05/09/2009 SALGUERO DO, LADONNA K 787.02 Nausea 05/09/2009 [employer] ROOM OPERATOR, ETELVINA L 327.52 Organic Sleep-related Leg Cramps 05/09/2009 [employer] CONTR[employer] ROOM OPERATOR, ETELVINA L 787.02 Nausea 05/09/2009 SALGUERO DO, LADONNA K 327.52 Organic Sleep-related Leg Cramps 05/09/2009 SALGUERO DO, LADONNA K 787.02 Nausea 05/09/2009 [employer] ROOM OPERATOR, ETELVINA L 327.52 Organic Sleep-related Leg Cramps 05/09/2009 [employer] ROOM OPERATOR, ETELVINA L 787.02 Nausea 07/02/2009 LAURIE MORA APRN S 465.9 Acute Upper Respiratory Infections Of Unspecified Site 07/02/2009 LAURIE MORA APRN S 780.4 Dizziness And Giddiness 07/02/2009 465.9 Acute Upper Respiratory Infections Of Unspecified Site 07/02/2009 780.4 Dizziness And Giddiness 07/02/2009 LAURIE MORA APRN S 465.9 Acute Upper Respiratory Infections Of Unspecified Site 07/02/2009 LAURIE MORA APRN S 780.4 Dizziness And Giddiness 07/02/2009 LAURIE MORA APRN S 465.9 Acute Upper Respiratory Infections Of Unspecified Site 07/02/2009 LAURIE MORA APRN 780.4 Dizziness And Giddiness 07/02/2009 ROMELIA FISCHER MD 465.9 Acute Upper Respiratory Infections Of Unspecified Site 07/02/2009 ROMELIA FISCHER MD 780.4 Dizziness And Giddiness 07/02/2009 BYRON BOSS MD 465.9 Acute Upper Respiratory Infections Of Unspecified Site 07/02/2009 BYRON BOSS MD 780.4 Dizziness And Giddiness 07/02/2009 465.9 Acute Upper Respiratory Infections Of Unspecified Site 07/02/2009 780.4 Dizziness And Giddiness 07/02/2009 465.9 Acute Upper Respiratory Infections Of Unspecified Site 07/02/2009 780.4 Dizziness And Giddiness 07/02/2009 465.9 Acute Upper Respiratory Infections Of Unspecified Site 07/02/2009 780.4 Dizziness And Giddiness 07/02/2009 465.9 Acute Upper Respiratory Infections Of Unspecified Site 07/02/2009 780.4 Dizziness And Giddiness 07/02/2009 BYRON BOSS MD 465.9 Acute Upper Respiratory Infections Of Unspecified Site 07/02/2009 BYRON BOSS MD 780.4 Dizziness And Giddiness 07/02/2009 BYRON BOSS MD 465.9 Acute Upper Respiratory Infections Of Unspecified Site 07/02/2009 BYRON BSOS MD 780.4 Dizziness And Giddiness 07/02/2009 LADONNA SALGUERO DO K 465.9 Acute Upper Respiratory Infections Of Unspecified Site 07/02/2009 NOEMY PRAKASH LADONNA K 780.4 Dizziness And Giddiness 07/02/2009 BYRON BOSS MD 465.9 Acute Upper Respiratory Infections Of Unspecified Site 07/02/2009 BYRON BOSS MD 780.4 Dizziness And Giddiness 07/02/2009 SALGUERO DO LADONNA K 465.9 Acute Upper Respiratory Infections Of Unspecified Site 07/02/2009 SALGUERO DO LADONNA K 780.4 Dizziness And Giddiness 07/02/2009 BYRON BOSS MD 465.9 Acute Upper Respiratory Infections Of Unspecified Site 07/02/2009 BYRON BOSS MD 780.4 Dizziness And Giddiness 07/02/2009 BYRON BOSS MD 465.9 Acute Upper Respiratory Infections Of Unspecified Site 07/02/2009 KARYN OLVERA, BYRON Bruner 780.4 Dizziness And Giddiness 07/02/2009 SALGUERO DO, LADONNA K 465.9 Acute Upper Respiratory Infections Of Unspecified Site 07/02/2009 SALGUERO DO, LADONNA K 780.4 Dizziness And Giddiness 07/02/2009 SALGUERO DO, LADONNA K 465.9 Acute Upper Respiratory Infections Of Unspecified Site 07/02/2009 SALGUERO DO, LADONNA K 780.4 Dizziness And Giddiness 07/02/2009 SALGUERO DO, LADONNA K 465.9 Acute Upper Respiratory Infections Of Unspecified Site 07/02/2009 SALGUERO DO, LADONNA K 780.4 Dizziness And Giddiness 07/02/2009 SALGUERO DO, LADONNA K 465.9 Acute Upper Respiratory Infections Of Unspecified Site 07/02/2009 SALGUERO DO, LADONNA K 780.4 Dizziness And Giddiness 07/02/2009 [employer] ROOM OPERATOR, ETELVINA L 465.9 Acute Upper Respiratory Infections Of Unspecified Site 07/02/2009 [employer] CONTR[employer] ROOM OPERATOR, ETELVINA L 780.4 Dizziness And Giddiness 07/02/2009 [employer] CONTR[employer] ROOM OPERATOR, ETELVINA L 465.9 Acute Upper Respiratory Infections Of Unspecified Site 07/02/2009 [employer] CONTR[employer] ROOM OPERATOR, ETELVINA L 780.4 Dizziness And Giddiness 07/02/2009 [employer] CONTR[employer] ROOM OPERATOR, ETELVINA L 465.9 Acute Upper Respiratory Infections Of Unspecified Site 07/02/2009 [employer] CONTR[employer] ROOM OPERATOR, ETELVINA L 780.4 Dizziness And Giddiness 07/02/2009 SALGUERO DO, LADONNA K 465.9 Acute Upper Respiratory Infections Of Unspecified Site 07/02/2009 SALGUERO DO, LADONNA K 780.4 Dizziness And Giddiness 07/02/2009 SALGUERO DO, LADONNA K 465.9 Acute Upper Respiratory Infections Of Unspecified Site 07/02/2009 SALGUERO DO, LADONNA K 780.4 Dizziness And Giddiness 07/02/2009 [employer] CONTR[employer] ROOM OPERATOR, ETELVINA L 465.9 Acute Upper Respiratory Infections Of Unspecified Site 07/02/2009 [employer] CONTR[employer] ROOM OPERATOR, ETELVINA L 780.4 Dizziness And Giddiness 07/02/2009 [employer] CONTR[employer] ROOM OPERATOR, ETELVINA L 465.9 Acute Upper Respiratory Infections Of Unspecified Site 07/02/2009 [employer] CONTR[employer] ROOM OPERATOR, ETELVINA L 780.4 Dizziness And Giddiness 07/02/2009 [employer] CONTR[employer] ROOM OPERATOR, ETELVINA L 465.9 Acute Upper Respiratory Infections Of Unspecified Site 07/02/2009 [employer] CONTR[employer] ROOM OPERATOR, ETELVINA L 780.4 Dizziness And Giddiness 07/02/2009 [employer] CONTR[employer] ROOM OPERATOR, ETELVINA L 465.9 Acute Upper Respiratory Infections Of Unspecified Site 07/02/2009 [employer] CONTR[employer] ROOM OPERATOR, ETELVINA L 780.4 Dizziness And Giddiness 07/02/2009 [employer] CONTR[employer] ROOM OPERATOR, ETELVINA L 465.9 Acute Upper Respiratory Infections Of Unspecified Site 07/02/2009 [employer] CONTR[employer] ROOM OPERATOR, ETELVINA L 780.4 Dizziness And Giddiness 07/02/2009 [employer] CONTR[employer] ROOM OPERATOR, ETELVINA L 465.9 Acute Upper Respiratory Infections Of Unspecified Site 07/02/2009 [employer] CONTR[employer] ROOM OPERATOR, ETELVINA L 780.4 Dizziness And Giddiness 07/02/2009 [employer] CONTR[employer] ROOM OPERATOR, ETELVINA L 465.9 Acute Upper Respiratory Infections Of Unspecified Site 07/02/2009 [employer] CONTR[employer] ROOM OPERATOR, ETELVINA L 780.4 Dizziness And Giddiness 07/02/2009 SALGUERO DO, LADONNA K 465.9 Acute Upper Respiratory Infections Of Unspecified Site 07/02/2009 SALGUERO DO, LADONNA K 780.4 Dizziness And Giddiness 07/02/2009 SALGUERO DO, LADONNA K 465.9 Acute Upper Respiratory Infections Of Unspecified Site 07/02/2009 SALGUERO DO, LADONNA K 780.4 Dizziness And Giddiness 07/02/2009 [employer] CONTR[employer] ROOM OPERATOR, ETELVINA L 465.9 Acute Upper Respiratory Infections Of Unspecified Site 07/02/2009 [employer] CONTR[employer] ROOM OPERATOR, ETELVINA L 780.4 Dizziness And Giddiness 07/02/2009 SALGUERO DO, LADONNA K 465.9 Acute Upper Respiratory Infections Of Unspecified Site 07/02/2009 SALGUERO DO, LADONNA K 780.4 Dizziness And Giddiness 07/02/2009 [employer] CONTR[employer] ROOM OPERATOR, ETELVINA L 465.9 Acute Upper Respiratory Infections Of Unspecified Site 07/02/2009 [employer] CONTR[employer] ROOM OPERATOR, ETELVINA L 780.4 Dizziness And Giddiness 08/10/2009 [employer] ROOM OPERATOR, LAURIE S 780.52 INSOMNIA UNSPECIFIED 08/10/2009 [employer] ROOM OPERATOR, LAURIE S 783.1 Abnormal Weight Gain 08/10/2009 780.52 Insomnia Unspecified 08/10/2009 783.1 Abnormal Weight Gain 08/10/2009 [employer] ROOM OPERATOR, LAURIE S 780.52 Insomnia Unspecified 08/10/2009 [employer] ROOM OPERATOR, LAURIE S 783.1 Abnormal Weight Gain 08/10/2009 [employer] ROOM OPERATOR, LAURIE S 780.52 Insomnia Unspecified 08/10/2009 [employer] ROOM OPERATOR, LAURIE S 783.1 Abnormal Weight Gain 08/10/2009 ROMELIA FISCHER MD 780.52 Insomnia Unspecified 08/10/2009 ROMELIA FISCHER MD 783.1 Abnormal Weight Gain 08/10/2009 BYRON BOSS MD 780.52 Insomnia Unspecified 08/10/2009 BYRON BOSS MD 783.1 Abnormal Weight Gain 08/10/2009 780.52 Insomnia Unspecified 08/10/2009 783.1 Abnormal Weight Gain 08/10/2009 780.52 Insomnia Unspecified 08/10/2009 783.1 Abnormal Weight Gain 08/10/2009 780.52 Insomnia Unspecified 08/10/2009 783.1 Abnormal Weight Gain 08/10/2009 780.52 Insomnia Unspecified 08/10/2009 783.1 Abnormal Weight Gain 08/10/2009 BYRON BOSS MD 780.52 Insomnia Unspecified 08/10/2009 BYRON BOSS MD 783.1 Abnormal Weight Gain 08/10/2009 BYRON BOSS MD 780.52 Insomnia Unspecified 08/10/2009 BYRON BOSS MD 783.1 Abnormal Weight Gain 08/10/2009 SALGUERO DO, LADONNA K 780.52 Insomnia Unspecified 08/10/2009 SALGUERO DO, LADONNA K 783.1 Abnormal Weight Gain 08/10/2009 BYRON BOSS MD 780.52 Insomnia Unspecified 08/10/2009 BYRON BOSS MD 783.1 Abnormal Weight Gain 08/10/2009 SALGUERO DO, LADONNA K 780.52 Insomnia Unspecified 08/10/2009 SALGUERO DO, LADONNA K 783.1 Abnormal Weight Gain 08/10/2009 BYRON BOSS MD 780.52 Insomnia Unspecified 08/10/2009 KARYN OLVERA, BYRON Bruner 783.1 Abnormal Weight Gain 08/10/2009 BYRON BOSS MD 780.52 Insomnia Unspecified 08/10/2009 BYRON BOSS MD 783.1 Abnormal Weight Gain 08/10/2009 SALGUERO DO, LADONNA K 780.52 Insomnia Unspecified 08/10/2009 SALGUERO DO, LADONNA K 783.1 Abnormal Weight Gain 08/10/2009 SALGUERO DO, LADONNA K 780.52 Insomnia Unspecified 08/10/2009 SALGUERO DO, LADONNA K 783.1 Abnormal Weight Gain 08/10/2009 SALGUERO DO, LADONNA K 780.52 Insomnia Unspecified 08/10/2009 SALGUERO DO, LADONNA K 783.1 Abnormal Weight Gain 08/10/2009 SALGUERO DO, LADONNA K 780.52 Insomnia Unspecified 08/10/2009 SALGUERO DO, LADONNA K 783.1 Abnormal Weight Gain 08/10/2009 [employer] ROOM OPERATOR, ETELVINA L 780.52 Insomnia Unspecified 08/10/2009 [employer] ROOM OPERATOR, ETELVINA L 783.1 Abnormal Weight Gain 08/10/2009 [employer] ROOM OPERATOR, ETELVINA L 780.52 Insomnia Unspecified 08/10/2009 [employer] CONTR[employer] ROOM OPERATOR, ETELVINA L 783.1 Abnormal Weight Gain 08/10/2009 [employer] CONTR[employer] ROOM OPERATOR, ETELVINA L 780.52 Insomnia Unspecified 08/10/2009 [employer] ROOM OPERATOR, ETELVINA L 783.1 Abnormal Weight Gain 08/10/2009 SALGUERO DO, LADONNA K 780.52 Insomnia Unspecified 08/10/2009 SALGUERO DO, LADONNA K 783.1 Abnormal Weight Gain 08/10/2009 SALGUERO DO, LADONNA K 780.52 Insomnia Unspecified 08/10/2009 SALGUERO DO, LADONNA K 783.1 Abnormal Weight Gain 08/10/2009 [employer] ROOM OPERATOR, ETELVINA L 780.52 Insomnia Unspecified 08/10/2009 [employer] ROOM OPERATOR, ETELVINA L 783.1 Abnormal Weight Gain 08/10/2009 [employer] ROOM OPERATOR, ETELVINA L 780.52 Insomnia Unspecified 08/10/2009 [employer] CONTR[employer] ROOM OPERATOR, ETELVINA L 783.1 Abnormal Weight Gain 08/10/2009 [employer] CONTR[employer] ROOM OPERATOR, ETLEVINA L 780.52 Insomnia Unspecified 08/10/2009 [employer] CONTR[employer] ROOM OPERATOR, ETELVINA L 783.1 Abnormal Weight Gain 08/10/2009 [employer] CONTR[employer] ROOM OPERATOR, ETELVINA L 780.52 Insomnia Unspecified 08/10/2009 [employer] CONTR[employer] ROOM OPERATOR, ETELVINA L 783.1 Abnormal Weight Gain 08/10/2009 [employer] CONTR[employer] ROOM OPERATOR, ETELVINA L 780.52 Insomnia Unspecified 08/10/2009 [employer] CONTR[employer] ROOM OPERATOR, ETELVINA L 783.1 Abnormal Weight Gain 08/10/2009 [employer] CONTR[employer] ROOM OPERATOR, ETELVINA L 780.52 Insomnia Unspecified 08/10/2009 [employer] CONTR[employer] ROOM OPERATOR, ETELVINA L 783.1 Abnormal Weight Gain 08/10/2009 [employer] CONTR[employer] ROOM OPERATOR, ETELVINA L 780.52 Insomnia Unspecified 08/10/2009 [employer] CONTR[employer] ROOM OPERATOR, ETELVINA L 783.1 Abnormal Weight Gain 08/10/2009 SALGUERO DO, LADONNA K 780.52 Insomnia Unspecified 08/10/2009 SALGUERO DO, LADONNA K 783.1 Abnormal Weight Gain 08/10/2009 SALGUERO DO, LADONNA K 780.52 Insomnia Unspecified 08/10/2009 SALGUERO DO, LADONNA K 783.1 Abnormal Weight Gain 08/10/2009 [employer] ROOM OPERATOR, ETELVINA L 780.52 Insomnia Unspecified 08/10/2009 [employer] CONTR[employer] ROOM OPERATOR, ETELVINA L 783.1 Abnormal Weight Gain 08/10/2009 SALGUERO DO, LADONNA K 780.52 Insomnia Unspecified 08/10/2009 SALGUERO DO, LADONNA K 783.1 Abnormal Weight Gain 08/10/2009 [employer] CONTR[employer] ROOM OPERATOR, ETELVINA L 780.52 Insomnia Unspecified 08/10/2009 [employer] ROOM OPERATOR, ETELVINA L 783.1 Abnormal Weight Gain 09/04/2009 LAURIE MORA APRN S 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 09/04/2009 LAURIE MORA APRN S 780.79 Feelings Of Weakness 09/04/2009 LAURIE MORA APRN S 786.05 shortness of breath 09/04/2009 LAURIE MORA APRN S 786.2 Cough 09/04/2009 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 09/04/2009 780.79 Feelings Of Weakness 09/04/2009 786.05 Shortness Of Breath 09/04/2009 786.2 Cough 09/04/2009 [employer] ROOM OPERATORPALOMA BowserNDA S 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 09/04/2009 [employer] ROOM OPERATOR, LAURIE S 780.79 Feelings Of Weakness 09/04/2009 [employer] ROOM OPERATOR, LAURIE S 786.05 Shortness Of Breath 09/04/2009 [employer] ROOM OPERATOR, LAURIE S 786.2 Cough 09/04/2009 [employer] CONTR[employer] ROOM OPERATOR, LAURIE S 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 09/04/2009 [employer] ROOM OPERATOR, LAURIE S 780.79 Feelings Of Weakness 09/04/2009 [employer] ROOM OPERATORPALOMA BowserNDA S 786.05 Shortness Of Breath 09/04/2009 PALOMA MORA APRNNDA S 786.2 Cough 09/04/2009 ROMELIA FISCHER MD 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 09/04/2009 ROMELIA FISCHER MD 780.79 Feelings Of Weakness 09/04/2009 ROMELIA FISCHER MD 786.05 Shortness Of Breath 09/04/2009 ROMELIA FISCHER MD 786.2 Cough 09/04/2009 BYRON BOSS MD 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 09/04/2009 BYRON BOSS MD 780.79 Feelings Of Weakness 09/04/2009 BYRON BOSS MD 786.05 Shortness Of Breath 09/04/2009 BYRON BOSS MD 786.2 Cough 09/04/2009 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 09/04/2009 780.79 Feelings Of Weakness 09/04/2009 786.05 Shortness Of Breath 09/04/2009 786.2 Cough 09/04/2009 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 09/04/2009 780.79 Feelings Of Weakness 09/04/2009 786.05 Shortness Of Breath 09/04/2009 786.2 Cough 09/04/2009 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 09/04/2009 780.79 Feelings Of Weakness 09/04/2009 786.05 Shortness Of Breath 09/04/2009 786.2 Cough 09/04/2009 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 09/04/2009 780.79 Feelings Of Weakness 09/04/2009 786.05 Shortness Of Breath 09/04/2009 786.2 Cough 09/04/2009 BYRON BOSS MD 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 09/04/2009 BYRON BOSS MD 780.79 Feelings Of Weakness 09/04/2009 BYRON BOSS MD 786.05 Shortness Of Breath 09/04/2009 BYRON BOSS MD 786.2 Cough 09/04/2009 BYRON BOSS MD 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 09/04/2009 BYRON BOSS MD 780.79 Feelings Of Weakness 09/04/2009 BYRON BOSS MD 786.05 Shortness Of Breath 09/04/2009 BYRON BOSS MD 786.2 Cough 09/04/2009 SALGUERO DO, LADONNA K 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 09/04/2009 SALGUERO DO, LADONNA K 780.79 Feelings Of Weakness 09/04/2009 SALGUERO DO, LADONNA K 786.05 Shortness Of Breath 09/04/2009 SALGUERO DO, LADONNA K 786.2 Cough 09/04/2009 BYRON BOSS MD 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 09/04/2009 BYRON BOSS MD 780.79 Feelings Of Weakness 09/04/2009 BYRON BOSS MD 786.05 Shortness Of Breath 09/04/2009 BYRON BOSS MD 786.2 Cough 09/04/2009 SALGUERO DO, LADONNA K 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 09/04/2009 SALGUERO DO, LADONNA K 780.79 Feelings Of Weakness 09/04/2009 SALGUERO DO, LADONNA K 786.05 Shortness Of Breath 09/04/2009 SALGUERO DO, LADONNA K 786.2 Cough 09/04/2009 BYRON BOSS MD 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 09/04/2009 BYRON BOSS MD 780.79 Feelings Of Weakness 09/04/2009 BYRON BOSS MD 786.05 Shortness Of Breath 09/04/2009 BYRON BOSS MD 786.2 Cough 09/04/2009 BYRON BOSS MD 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 09/04/2009 BYRON BOSS MD 780.79 Feelings Of Weakness 09/04/2009 BYRON BOSS MD 786.05 Shortness Of Breath 09/04/2009 KARYN OLVERA, BYRON Bruner 786.2 Cough 09/04/2009 SALGUERO DO, LADONNA K 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 09/04/2009 SALGUERO DO, LADONNA K 780.79 Feelings Of Weakness 09/04/2009 SALGUERO DO, LADONNA K 786.05 Shortness Of Breath 09/04/2009 SALGUERO DO, LADONNA K 786.2 Cough 09/04/2009 SALGUERO DO, LADONNA K 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 09/04/2009 SALGUERO DO, LADONNA K 780.79 Feelings Of Weakness 09/04/2009 SALGUERO DO, LADONNA K 786.05 Shortness Of Breath 09/04/2009 SALGUERO DO, LADONNA K 786.2 Cough 09/04/2009 SALGUERO DO, LADONNA K 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 09/04/2009 SALGUERO DO, LADONNA K 780.79 Feelings Of Weakness 09/04/2009 SALGUERO DO, LADONNA K 786.05 Shortness Of Breath 09/04/2009 SALGUERO DO, LADONNA K 786.2 Cough 09/04/2009 SALGUERO DO, LADONNA K 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 09/04/2009 SALGUERO DO, LADONNA K 780.79 Feelings Of Weakness 09/04/2009 SALGUERO DO, LADONNA K 786.05 Shortness Of Breath 09/04/2009 SALGUERO DO, LADONNA K 786.2 Cough 09/04/2009 [employer] ROOM OPERATOR, ETELVINA L 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 09/04/2009 [employer] ROOM OPERATOR, ETELVINA L 780.79 Feelings Of Weakness 09/04/2009 [employer] ROOM OPERATOR, ETELVINA L 786.05 Shortness Of Breath 09/04/2009 [employer] ROOM OPERATOR, ETELVINA L 786.2 Cough 09/04/2009 [employer] CONTR[employer] ROOM OPERATOR, ETELVINA L 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 09/04/2009 [employer] ROOM OPERATOR, ETELVINA L 780.79 Feelings Of Weakness 09/04/2009 [employer] ROOM OPERATOR, ETELVINA L 786.05 Shortness Of Breath 09/04/2009 [employer] ROOM OPERATOR, ETELVINA L 786.2 Cough 09/04/2009 [employer] ROOM OPERATOR, ETELVINA L 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 09/04/2009 [employer] ROOM OPERATOR, ETELVINA L 780.79 Feelings Of Weakness 09/04/2009 [employer] ROOM OPERATOR, ETELVINA L 786.05 Shortness Of Breath 09/04/2009 [employer] ROOM OPERATOR, ETELVINA L 786.2 Cough 09/04/2009 SALGUERO DO, LADONNA K 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 09/04/2009 SALGUERO DO, LADONNA K 780.79 Feelings Of Weakness 09/04/2009 SALGUERO DO, LADONNA K 786.05 Shortness Of Breath 09/04/2009 SALGUERO DO, LADONNA K 786.2 Cough 09/04/2009 SALGUERO DO, LADONNA K 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 09/04/2009 SALGUERO DO, LADONNA K 780.79 Feelings Of Weakness 09/04/2009 SALGUERO DO, LADONNA K 786.05 Shortness Of Breath 09/04/2009 SALGUERO DO, LADONNA K 786.2 Cough 09/04/2009 [employer] ROOM OPERATOR, ETELVINA L 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 09/04/2009 [employer] ROOM OPERATOR, ETELVINA L 780.79 Feelings Of Weakness 09/04/2009 [employer] ROOM OPERATOR, ETELVINA L 786.05 Shortness Of Breath 09/04/2009 [employer] ROOM OPERATOR, ETELVINA L 786.2 Cough 09/04/2009 [employer] ROOM OPERATOR, ETELVINA L 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 09/04/2009 [employer] ROOM OPERATOR, ETELVINA L 780.79 Feelings Of Weakness 09/04/2009 [employer] ROOM OPERATOR, ETELVINA L 786.05 Shortness Of Breath 09/04/2009 [employer] ROOM OPERATOR, ETELVINA L 786.2 Cough 09/04/2009 [employer] ROOM OPERATOR, ETELVINA L 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 09/04/2009 [employer] ROOM OPERATOR, ETELVINA L 780.79 Feelings Of Weakness 09/04/2009 [employer] ROOM OPERATOR, ETELVINA L 786.05 Shortness Of Breath 09/04/2009 [employer] ROOM OPERATOR, ETELVINA L 786.2 Cough 09/04/2009 [employer] ROOM OPERATOR, ETELVINA L 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 09/04/2009 [employer] ROOM OPERATOR, ETELVINA L 780.79 Feelings Of Weakness 09/04/2009 [employer] ROOM OPERATOR, ETELVINA L 786.05 Shortness Of Breath 09/04/2009 [employer] ROOM OPERATOR, ETELVINA L 786.2 Cough 09/04/2009 [employer] ROOM OPERATOR, ETELVINA L 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 09/04/2009 [employer] ROOM OPERATOR, ETELVINA L 780.79 Feelings Of Weakness 09/04/2009 [employer] ROOM OPERATOR, ETELVINA L 786.05 Shortness Of Breath 09/04/2009 [employer] ROOM OPERATOR, ETELVINA L 786.2 Cough 09/04/2009 [employer] ROOM OPERATOR, ETELVINA L 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 09/04/2009 [employer] CONTR[employer] ROOM OPERATOR, ETELVINA L 780.79 Feelings Of Weakness 09/04/2009 [employer] ROOM OPERATOR, ETELVINA L 786.05 Shortness Of Breath 09/04/2009 [employer] ROOM OPERATOR, ETELVINA L 786.2 Cough 09/04/2009 [employer] ROOM OPERATOR, ETELVINA L 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 09/04/2009 [employer] ROOM OPERATOR, ETELVINA L 780.79 Feelings Of Weakness 09/04/2009 [employer] ROOM OPERATOR, ETELVINA L 786.05 Shortness Of Breath 09/04/2009 [employer] ROOM OPERATOR, ETELVINA L 786.2 Cough 09/04/2009 SALGUERO DO, LADONNA K 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 09/04/2009 SALGUERO DO, LADONNA K 780.79 Feelings Of Weakness 09/04/2009 SALGUERO DO, LADONNA K 786.05 Shortness Of Breath 09/04/2009 SALGUERO DO, LADONNA K 786.2 Cough 09/04/2009 SALGUERO DO, LADONNA K 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 09/04/2009 SALGUERO DO, LADONNA K 780.79 Feelings Of Weakness 09/04/2009 SALGUERO DO, LADONNA K 786.05 Shortness Of Breath 09/04/2009 SALGUERO DO, LADONNA K 786.2 Cough 09/04/2009 [employer] ROOM OPERATOR, ETELVINA L 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 09/04/2009 [employer] ROOM OPERATOR, ETELVINA L 780.79 Feelings Of Weakness 09/04/2009 [employer] ROOM OPERATOR, ETELVINA L 786.05 Shortness Of Breath 09/04/2009 [employer] ROOM OPERATOR, ETELVINA L 786.2 Cough 09/04/2009 SALGUERO DO, LADONNA K 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 09/04/2009 SALGUERO DO, LADONNA K 780.79 Feelings Of Weakness 09/04/2009 SALGUERO DO, LADONNA K 786.05 Shortness Of Breath 09/04/2009 SALGUERO DO, LADONNA K 786.2 Cough 09/04/2009 [employer] ROOM OPERATOR, ETELVINA L 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 09/04/2009 [employer] ROOM OPERATOR, ETELVINA L 780.79 Feelings Of Weakness 09/04/2009 [employer] ROOM OPERATOR, ETELVINA L 786.05 Shortness Of Breath 09/04/2009 [employer] ROOM OPERATOR, ETELVINA L 786.2 Cough 09/07/2009 [employer] ROOM OPERATOR, LAURIE S 079.99 Viral Syndrome 09/07/2009 079.99 Viral Syndrome 09/07/2009 [employer] ROOM OPERATOR, LAURIE S 079.99 Viral Syndrome 09/07/2009 [employer] ROOM OPERATOR, LAURIE S 079.99 Viral Syndrome 09/07/2009 ROMELIA FISCHER MD 079.99 Viral Syndrome 09/07/2009 BYRON BOSS MD 079.99 Viral Syndrome 09/07/2009 079.99 Viral Syndrome 09/07/2009 079.99 Viral Syndrome 09/07/2009 079.99 Viral Syndrome 09/07/2009 079.99 Viral Syndrome 09/07/2009 BYRON BOSS MD 079.99 Viral Syndrome 09/07/2009 BYRON BOSS MD 079.99 Viral Syndrome 09/07/2009 LADONNA SALGUERO DO K 079.99 Viral Syndrome 09/07/2009 BYRON BOSS MD 079.99 Viral Syndrome 09/07/2009 SALGUERO LADONNA PRAKASH K 079.99 Viral Syndrome 09/07/2009 BYRON BOSS MD 079.99 Viral Syndrome 09/07/2009 BYRON BOSS MD 079.99 Viral Syndrome 09/07/2009 SALGUERO LADONNA PRAKASH K 079.99 Viral Syndrome 09/07/2009 SALGUERO TERE PRAKASHA K 079.99 Viral Syndrome 09/07/2009 SALGUERO DO LADONNA K 079.99 Viral Syndrome 09/07/2009 SALGUERO TERE PRAKASHA K 079.99 Viral Syndrome 09/07/2009 [employer] ROOM OPERATOR, ETELVINA L 079.99 Viral Syndrome 09/07/2009 [employer] ROOM OPERATOR, ETELVINA L 079.99 Viral Syndrome 09/07/2009 [employer] CONTR[employer] ROOM OPERATOR, ETELVINA L 079.99 Viral Syndrome 09/07/2009 SALGUERO DO, LADONNA K 079.99 Viral Syndrome 09/07/2009 SALGUERO DO, LADONNA K 079.99 Viral Syndrome 09/07/2009 [employer] CONTR[employer] ROOM OPERATOR, ETELVINA L 079.99 Viral Syndrome 09/07/2009 [employer] CONTR[employer] ROOM OPERATOR, ETELVINA L 079.99 Viral Syndrome 09/07/2009 [employer] CONTR[employer] ROOM OPERATOR, ETELVINA L 079.99 Viral Syndrome 09/07/2009 [employer] CONTR[employer] ROOM OPERATOR, ETELVINA L 079.99 Viral Syndrome 09/07/2009 [employer] CONTR[employer] ROOM OPERATOR, ETELVINA L 079.99 Viral Syndrome 09/07/2009 [employer] CONTR[employer] ROOM OPERATOR, ETELVINA L 079.99 Viral Syndrome 09/07/2009 [employer] CONTR[employer] ROOM OPERATOR, ETELVINA L 079.99 Viral Syndrome 09/07/2009 SALGUERO DO, LADONNA K 079.99 Viral Syndrome 09/07/2009 SALGUERO DO, LADONNA K 079.99 Viral Syndrome 09/07/2009 [employer] CONTR[employer] ROOM OPERATOR, ETELVINA L 079.99 Viral Syndrome 09/07/2009 SALGUERO DO, LADONNA K 079.99 Viral Syndrome 09/07/2009 [employer] ROOM OPERATOR, ETELVINA L 079.99 Viral Syndrome 10/12/2009 LAURIE MORA APRN S 719.58 Stiffness Of Joint, Not Elsewhere Classified, Other Specified Sites 10/12/2009 PALOMA MORA APRNNDA S 799.02 Hypoxemia 10/12/2009 719.58 Stiffness Of Joint, Not Elsewhere Classified, Other Specified Sites 10/12/2009 799.02 Hypoxemia 10/12/2009 SUSHANT MORA APRNA S 719.58 Stiffness Of Joint, Not Elsewhere Classified, Other Specified Sites 10/12/2009 PALOMA MORA APRNNDA S 799.02 Hypoxemia 10/12/2009 PALOMA MORA APRNNDA S 719.58 Stiffness Of Joint, Not Elsewhere Classified, Other Specified Sites 10/12/2009 LAURIE MORA APRN 799.02 Hypoxemia 10/12/2009 ROMELIA FISCHER MD 719.58 Stiffness Of Joint, Not Elsewhere Classified, Other Specified Sites 10/12/2009 ROMELIA FISCHER MD 799.02 Hypoxemia 10/12/2009 BYRON BOSS MD 719.58 Stiffness Of Joint, Not Elsewhere Classified, Other Specified Sites 10/12/2009 BYRON BOSS MD 799.02 Hypoxemia 10/12/2009 719.58 Stiffness Of Joint, Not Elsewhere Classified, Other Specified Sites 10/12/2009 799.02 Hypoxemia 10/12/2009 719.58 Stiffness Of Joint, Not Elsewhere Classified, Other Specified Sites 10/12/2009 799.02 Hypoxemia 10/12/2009 719.58 Stiffness Of Joint, Not Elsewhere Classified, Other Specified Sites 10/12/2009 799.02 Hypoxemia 10/12/2009 719.58 Stiffness Of Joint, Not Elsewhere Classified, Other Specified Sites 10/12/2009 799.02 Hypoxemia 10/12/2009 BYRON BOSS MD 719.58 Stiffness Of Joint, Not Elsewhere Classified, Other Specified Sites 10/12/2009 BYRON BOSS MD 799.02 Hypoxemia 10/12/2009 BYRON BOSS MD 719.58 Stiffness Of Joint, Not Elsewhere Classified, Other Specified Sites 10/12/2009 BYRON BOSS MD 799.02 Hypoxemia 10/12/2009 LADONNA SALGUERO DO 719.58 Stiffness Of Joint, Not Elsewhere Classified, Other Specified Sites 10/12/2009 LADONNA SALGUERO DO 799.02 Hypoxemia 10/12/2009 BYRON BOSS MD 719.58 Stiffness Of Joint, Not Elsewhere Classified, Other Specified Sites 10/12/2009 BYRON BOSS MD 799.02 Hypoxemia 10/12/2009 LADONNA SALGUERO DO 719.58 Stiffness Of Joint, Not Elsewhere Classified, Other Specified Sites 10/12/2009 LADONNA SALGUERO DO 799.02 Hypoxemia 10/12/2009 BYRON BOSS MD 719.58 Stiffness Of Joint, Not Elsewhere Classified, Other Specified Sites 10/12/2009 BYRON BOSS MD 799.02 Hypoxemia 10/12/2009 KARYN MD, BYRON M 719.58 Stiffness Of Joint, Not Elsewhere Classified, Other Specified Sites 10/12/2009 BYRON BOSS MD 799.02 Hypoxemia 10/12/2009 SALGUERO DO, LADONNA K 719.58 Stiffness Of Joint, Not Elsewhere Classified, Other Specified Sites 10/12/2009 SALGUERO DO, LADONNA K 799.02 Hypoxemia 10/12/2009 SALGUERO DO, LADONNA K 719.58 Stiffness Of Joint, Not Elsewhere Classified, Other Specified Sites 10/12/2009 SALGUERO DO, LADONNA K 799.02 Hypoxemia 10/12/2009 SALGUERO DO, LADONNA K 719.58 Stiffness Of Joint, Not Elsewhere Classified, Other Specified Sites 10/12/2009 SALGUERO DO, LADONNA K 799.02 Hypoxemia 10/12/2009 SALGUERO DO, LADONNA K 719.58 Stiffness Of Joint, Not Elsewhere Classified, Other Specified Sites 10/12/2009 SALGUERO DO, LADONNA K 799.02 Hypoxemia 10/12/2009 [employer] ROOM OPERATOR ETELVINA L 719.58 Stiffness Of Joint, Not Elsewhere Classified, Other Specified Sites 10/12/2009 [employer] ROOM OPERATOR, ETELVINA L 799.02 Hypoxemia 10/12/2009 [employer] ROOM OPERATOR, ETELVINA L 719.58 Stiffness Of Joint, Not Elsewhere Classified, Other Specified Sites 10/12/2009 [employer] ROOM OPERATOR, ETELVINA L 799.02 Hypoxemia 10/12/2009 [employer] CONTR[employer] ROOM OPERATOR, ETELVINA L 719.58 Stiffness Of Joint, Not Elsewhere Classified, Other Specified Sites 10/12/2009 [employer] CONTR[employer] ROOM OPERATOR, ETELVINA L 799.02 Hypoxemia 10/12/2009 SALGUERO DO, LADONNA K 719.58 Stiffness Of Joint, Not Elsewhere Classified, Other Specified Sites 10/12/2009 SALGUERO DO, LADONNA K 799.02 Hypoxemia 10/12/2009 SALGUERO DO, LADONNA K 719.58 Stiffness Of Joint, Not Elsewhere Classified, Other Specified Sites 10/12/2009 SALGUERO DO, LADONNA K 799.02 Hypoxemia 10/12/2009 [employer] CONTR[employer] ROOM OPERATOR, ETELVINA L 719.58 Stiffness Of Joint, Not Elsewhere Classified, Other Specified Sites 10/12/2009 [employer] CONTR[employer] ROOM OPERATOR, ETELVINA L 799.02 Hypoxemia 10/12/2009 [employer] CONTR[employer] ROOM OPERATOR, ETELVINA L 719.58 Stiffness Of Joint, Not Elsewhere Classified, Other Specified Sites 10/12/2009 [employer] CONTR[employer] ROOM OPERATOR, ETELVINA L 799.02 Hypoxemia 10/12/2009 [employer] CONTR[employer] ROOM OPERATOR, ETELVINA L 719.58 Stiffness Of Joint, Not Elsewhere Classified, Other Specified Sites 10/12/2009 [employer] CONTR[employer] ROOM OPERATOR, ETELVINA L 799.02 Hypoxemia 10/12/2009 [employer] CONTR[employer] ROOM OPERATOR, ETELVINA L 719.58 Stiffness Of Joint, Not Elsewhere Classified, Other Specified Sites 10/12/2009 [employer] CONTR[employer] ROOM OPERATOR, ETELVINA L 799.02 Hypoxemia 10/12/2009 [employer] CONTR[employer] ROOM OPERATOR, ETELVINA L 719.58 Stiffness Of Joint, Not Elsewhere Classified, Other Specified Sites 10/12/2009 [employer] CONTR[employer] ROOM OPERATOR, ETELVINA L 799.02 Hypoxemia 10/12/2009 [employer] CONTR[employer] ROOM OPERATOR, ETELVINA L 719.58 Stiffness Of Joint, Not Elsewhere Classified, Other Specified Sites 10/12/2009 [employer] CONTR[employer] ROOM OPERATOR, ETELVINA L 799.02 Hypoxemia 10/12/2009 [employer] CONTR[employer] ROOM OPERATOR, ETELVINA L 719.58 Stiffness Of Joint, Not Elsewhere Classified, Other Specified Sites 10/12/2009 [employer] CONTR[employer] ROOM OPERATOR, ETELVINA L 799.02 Hypoxemia 10/12/2009 SALGUERO DO, LADONNA K 719.58 Stiffness Of Joint, Not Elsewhere Classified, Other Specified Sites 10/12/2009 SALGUERO DO, LADONNA K 799.02 Hypoxemia 10/12/2009 SALGUERO DO, LADONNA K 719.58 Stiffness Of Joint, Not Elsewhere Classified, Other Specified Sites 10/12/2009 SALGUERO DO, LADONNA K 799.02 Hypoxemia 10/12/2009 [employer] CONTR[employer] ROOM OPERATOR, ETELVINA L 719.58 Stiffness Of Joint, Not Elsewhere Classified, Other Specified Sites 10/12/2009 [employer] CONTR[employer] ROOM OPERATOR, ETELVINA L 799.02 Hypoxemia 10/12/2009 SALGUERO DO, LADONNA K 719.58 Stiffness Of Joint, Not Elsewhere Classified, Other Specified Sites 10/12/2009 SALGUERO DO, LADONNA K 799.02 Hypoxemia 10/12/2009 [employer] CONTR[employer] ROOM OPERATOR, ETELVINA L 719.58 Stiffness Of Joint, Not Elsewhere Classified, Other Specified Sites 10/12/2009 [employer] ROOM OPERATOR, ETELVINA L 799.02 Hypoxemia 11/07/2009 PALOMA MORA APRNNDA S 300.00 ANXIETY UNSPEC 11/07/2009 PALOMA MORA APRNNDA S 305.1 NICOTINE DEPENDENCE - CONTINUOUS 11/07/2009 300.00 Anxiety Unspec 11/07/2009 305.1 NICOTINE DEPENDENCE - CONTINUOUS 11/07/2009 [employer] CONTR[employer] ROOM OPERATORPALOMA BowserNDA S 300.00 Anxiety Unspec 11/07/2009 MORGAN HARRIS, LAURIE S 305.1 NICOTINE DEPENDENCE - CONTINUOUS 11/07/2009 PALOMA MORA APRNNDA S 300.00 Anxiety Unspec 11/07/2009 MORGAN HARRIS, LAURIE S 305.1 NICOTINE DEPENDENCE - CONTINUOUS 11/07/2009 ROMELIA FISCHER MD 300.00 Anxiety Unspec 11/07/2009 ROMELIA FISCHER MD 305.1 NICOTINE DEPENDENCE - CONTINUOUS 11/07/2009 BYRON BOSS MD 300.00 Anxiety Unspec 11/07/2009 BYRON BOSS MD 305.1 NICOTINE DEPENDENCE - CONTINUOUS 11/07/2009 300.00 Anxiety Unspec 11/07/2009 305.1 NICOTINE DEPENDENCE - CONTINUOUS 11/07/2009 300.00 Anxiety Unspec 11/07/2009 305.1 NICOTINE DEPENDENCE - CONTINUOUS 11/07/2009 300.00 Anxiety Unspec 11/07/2009 305.1 NICOTINE DEPENDENCE - CONTINUOUS 11/07/2009 300.00 Anxiety Unspec 11/07/2009 305.1 NICOTINE DEPENDENCE - CONTINUOUS 11/07/2009 BYRON BOSS MD 300.00 Anxiety Unspec 11/07/2009 BYRON BOSS MD 305.1 NICOTINE DEPENDENCE - CONTINUOUS 11/07/2009 BYRON BOSS MD 300.00 Anxiety Unspec 11/07/2009 BYRON BOSS MD 305.1 NICOTINE DEPENDENCE - CONTINUOUS 11/07/2009 TERE SALGUERO DOA K 300.00 Anxiety Unspec 11/07/2009 NOEMY PRAKASH LADONNA K 305.1 NICOTINE DEPENDENCE - CONTINUOUS 11/07/2009 BYRON BOSS MD 300.00 Anxiety Unspec 11/07/2009 BYRON BOSS MD 305.1 NICOTINE DEPENDENCE - CONTINUOUS 11/07/2009 SALGUERO DO LADONNA K 300.00 Anxiety Unspec 11/07/2009 SALGUERO DO LADONNA K 305.1 NICOTINE DEPENDENCE - CONTINUOUS 11/07/2009 BYRON BOSS MD 300.00 Anxiety Unspec 11/07/2009 BYRON BOSS MD 305.1 NICOTINE DEPENDENCE - CONTINUOUS 11/07/2009 BYRON BOSS MD M 300.00 Anxiety Unspec 11/07/2009 BYRON BOSS MD M 305.1 NICOTINE DEPENDENCE - CONTINUOUS 11/07/2009 SALGUERO DO, LADONNA K 300.00 Anxiety Unspec 11/07/2009 SALGUERO DO, LADONNA K 305.1 NICOTINE DEPENDENCE - CONTINUOUS 11/07/2009 SALGUERO DO, LADONNA K 300.00 Anxiety Unspec 11/07/2009 SALGUERO DO, LADONNA K 305.1 NICOTINE DEPENDENCE - CONTINUOUS 11/07/2009 SALGUERO DO, LADONNA K 300.00 Anxiety Unspec 11/07/2009 SALGUERO DO, LADONNA K 305.1 NICOTINE DEPENDENCE - CONTINUOUS 11/07/2009 SALGUERO DO, LADONNA K 300.00 Anxiety Unspec 11/07/2009 SALGUERO DO, LADONNA K 305.1 NICOTINE DEPENDENCE - CONTINUOUS 11/07/2009 [employer] ROOM OPERATOR, ETELVINA L 300.00 Anxiety Unspec 11/07/2009 [employer] CONTR[employer] ROOM OPERATOR, ETELVINA L 305.1 NICOTINE DEPENDENCE - CONTINUOUS 11/07/2009 [employer] CONTR[employer] ROOM OPERATOR, ETELVINA L 300.00 Anxiety Unspec 11/07/2009 [employer] CONTR[employer] ROOM OPERATOR, ETELVINA L 305.1 NICOTINE DEPENDENCE - CONTINUOUS 11/07/2009 [employer] CONTROL ROOM OPERATOR, ETELVINA L 300.00 Anxiety Unspec 11/07/2009 [employer] CONTR[employer] ROOM OPERATOR, ETELVINA L 305.1 NICOTINE DEPENDENCE - CONTINUOUS 11/07/2009 SALGUERO DO, LADONNA K 300.00 Anxiety Unspec 11/07/2009 SALGUERO DO, LADONNA K 305.1 NICOTINE DEPENDENCE - CONTINUOUS 11/07/2009 SALGUERO DO, LADONNA K 300.00 Anxiety Unspec 11/07/2009 SALGUERO DO, LADONNA K 305.1 NICOTINE DEPENDENCE - CONTINUOUS 11/07/2009 [employer] CONTR[employer] ROOM OPERATOR, ETELVINA L 300.00 Anxiety Unspec 11/07/2009 [employer] CONTR[employer] ROOM OPERATOR, ETELVINA L 305.1 NICOTINE DEPENDENCE - CONTINUOUS 11/07/2009 [employer] CONTROL ROOM OPERATOR, ETELVINA L 300.00 Anxiety Unspec 11/07/2009 [employer] CONTR[employer] ROOM OPERATOR, ETELVINA L 305.1 NICOTINE DEPENDENCE - CONTINUOUS 11/07/2009 [employer] CONTR[employer] ROOM OPERATOR, ETELVINA L 300.00 Anxiety Unspec 11/07/2009 [employer] CONTROL ROOM OPERATOR, ETELVINA L 305.1 NICOTINE DEPENDENCE - CONTINUOUS 11/07/2009 [employer] CONTR[employer] ROOM OPERATOR, ETELVINA L 300.00 Anxiety Unspec 11/07/2009 [employer] CONTROL ROOM OPERATOR, ETELVINA L 305.1 NICOTINE DEPENDENCE - CONTINUOUS 11/07/2009 [employer] CONTR[employer] ROOM OPERATOR, ETELVINA L 300.00 Anxiety Unspec 11/07/2009 [employer] CONTROL ROOM OPERATOR, ETELVINA L 305.1 NICOTINE DEPENDENCE - CONTINUOUS 11/07/2009 [employer] CONTROL ROOM OPERATOR, ETELVINA L 300.00 Anxiety Unspec 11/07/2009 [employer] CONTROL ROOM OPERATOR, ETELVINA L 305.1 NICOTINE DEPENDENCE - CONTINUOUS 11/07/2009 [employer] CONTR[employer] ROOM OPERATOR, ETELVINA L 300.00 Anxiety Unspec 11/07/2009 [employer] CONTR[employer] ROOM OPERATOR, ETELVINA L 305.1 NICOTINE DEPENDENCE - CONTINUOUS 11/07/2009 SALGUERO DO, LADONNA K 300.00 Anxiety Unspec 11/07/2009 SALGUERO DO, LADONNA K 305.1 NICOTINE DEPENDENCE - CONTINUOUS 11/07/2009 SALGUERO DO, LADONNA K 300.00 Anxiety Unspec 11/07/2009 SALGUERO DO, LADONNA K 305.1 NICOTINE DEPENDENCE - CONTINUOUS 11/07/2009 [employer] CONTR[employer] ROOM OPERATOR, ETELVINA L 300.00 Anxiety Unspec 11/07/2009 [employer] CONTR[employer] ROOM OPERATOR, ETELVINA L 305.1 NICOTINE DEPENDENCE - CONTINUOUS 11/07/2009 SALGUERO DO, LADONNA K 300.00 Anxiety Unspec 11/07/2009 SALGUERO DO, LADONNA K 305.1 NICOTINE DEPENDENCE - CONTINUOUS 11/07/2009 [employer] CONTR[employer] ROOM OPERATOR, ETELVINA L 300.00 Anxiety Unspec 11/07/2009 [employer] ROOM OPERATOR, ETELVINA L 305.1 NICOTINE DEPENDENCE - CONTINUOUS 01/31/2010 LAURIE MORA APRN S 719.43 Joint Pain, Localized In The Wrist 01/31/2010 LAURIE MORA APRN S 782.0 Numbness (hypesthesia) 01/31/2010 719.43 Joint Pain, Localized In The Wrist 01/31/2010 782.0 Numbness ( hypesthesia) 01/31/2010 LAURIE MORA APRN 719.43 Joint Pain, Localized In The Wrist 01/31/2010 [employer] ROOM OPERATOR, LAURIE S 782.0 Numbness (hypesthesia) 01/31/2010 [employer] ROOM OPERATOR, LAURIE S 719.43 Joint Pain, Localized In The Wrist 01/31/2010 MORGAN HARRIS, LAURIE S 782.0 Numbness (hypesthesia) 01/31/2010 ROMELIA FISCHER MD 719.43 Joint Pain, Localized In The Wrist 01/31/2010 ROMELIA FISCHER MD 782.0 Numbness (hypesthesia) 01/31/2010 BYRON BOSS MD 719.43 Joint Pain, Localized In The Wrist 01/31/2010 BYRON BOSS MD 782.0 Numbness (hypesthesia) 01/31/2010 719.43 Joint Pain, Localized In The Wrist 01/31/2010 782.0 Numbness ( hypesthesia) 01/31/2010 719.43 Joint Pain, Localized In The Wrist 01/31/2010 782.0 Numbness ( hypesthesia) 01/31/2010 719.43 Joint Pain, Localized In The Wrist 01/31/2010 782.0 Numbness ( hypesthesia) 01/31/2010 719.43 Joint Pain, Localized In The Wrist 01/31/2010 782.0 Numbness ( hypesthesia) 01/31/2010 BYRON BOSS MD 719.43 Joint Pain, Localized In The Wrist 01/31/2010 BYRON BOSS MD 782.0 Numbness (hypesthesia) 01/31/2010 BYRON BOSS MD 719.43 Joint Pain, Localized In The Wrist 01/31/2010 BYRON BOSS MD 782.0 Numbness (hypesthesia) 01/31/2010 TERE SALGUERO DOA K 719.43 Joint Pain, Localized In The Wrist 01/31/2010 TERE SALGUERO DOA K 782.0 Numbness (hypesthesia) 01/31/2010 BYRON BOSS MD 719.43 Joint Pain, Localized In The Wrist 01/31/2010 BYRON BOSS MD 782.0 Numbness (hypesthesia) 01/31/2010 NOEMY PRAKASH LADONNA K 719.43 Joint Pain, Localized In The Wrist 01/31/2010 NOEMY PRAKASH LADONNA K 782.0 Numbness (hypesthesia) 01/31/2010 BYRON BOSS MD 719.43 Joint Pain, Localized In The Wrist 01/31/2010 BYRON BOSS MD 782.0 Numbness (hypesthesia) 01/31/2010 BYRON BOSS MD 719.43 Joint Pain, Localized In The Wrist 01/31/2010 BYRON BOSS MD 782.0 Numbness (hypesthesia) 01/31/2010 SALGUERO DO, LADONNA K 719.43 Joint Pain, Localized In The Wrist 01/31/2010 SALGUERO DO, LADONNA K 782.0 Numbness (hypesthesia) 01/31/2010 SALGUERO DO, LADONNA K 719.43 Joint Pain, Localized In The Wrist 01/31/2010 SALGUERO DO, LADONNA K 782.0 Numbness (hypesthesia) 01/31/2010 SALGUERO DO, LADONNA K 719.43 Joint Pain, Localized In The Wrist 01/31/2010 SALGUERO DO, LADONNA K 782.0 Numbness (hypesthesia) 01/31/2010 SALGUERO DO, LADONNA K 719.43 Joint Pain, Localized In The Wrist 01/31/2010 SALGUERO DO, LADONNA K 782.0 Numbness (hypesthesia) 01/31/2010 [employer] OPERATOR, ETELVINA L 719.43 Joint Pain, Localized In The Wrist 01/31/2010 [employer] ROOM OPERATOR, ETELVINA L 782.0 Numbness (hypesthesia) 01/31/2010 [employer] ROOM OPERATOR, ETELVINA L 719.43 Joint Pain, Localized In The Wrist 01/31/2010 [employer] ROOM OPERATOR, ETELVINA L 782.0 Numbness (hypesthesia) 01/31/2010 [employer] ROOM OPERATOR, ETELVINA L 719.43 Joint Pain, Localized In The Wrist 01/31/2010 [employer] ROOM OPERATOR, ETELVINA L 782.0 Numbness (hypesthesia) 01/31/2010 SALGUERO DO, LADONNA K 719.43 Joint Pain, Localized In The Wrist 01/31/2010 SALGUERO DO, LADONNA K 782.0 Numbness (hypesthesia) 01/31/2010 SALGUERO DO, LADONNA K 719.43 Joint Pain, Localized In The Wrist 01/31/2010 SALGUERO DO, LADONNA K 782.0 Numbness (hypesthesia) 01/31/2010 [employer] ROOM OPERATOR, ETELVINA L 719.43 Joint Pain, Localized In The Wrist 01/31/2010 [employer] ROOM OPERATOR, ETELVINA L 782.0 Numbness (hypesthesia) 01/31/2010 [employer] ROOM OPERATOR, ETELVINA L 719.43 Joint Pain, Localized In The Wrist 01/31/2010 [employer] ROOM OPERATOR, ETELVINA L 782.0 Numbness (hypesthesia) 01/31/2010 [employer] ROOM OPERATOR, ETELVINA L 719.43 Joint Pain, Localized In The Wrist 01/31/2010 [employer] ROOM OPERATOR, ETELVINA L 782.0 Numbness (hypesthesia) 01/31/2010 [employer] ROOM OPERATOR, ETELVINA L 719.43 Joint Pain, Localized In The Wrist 01/31/2010 [employer] ROOM OPERATOR, ETELVINA L 782.0 Numbness (hypesthesia) 01/31/2010 [employer] ROOM OPERATOR, ETELVINA L 719.43 Joint Pain, Localized In The Wrist 01/31/2010 [employer] ROOM OPERATOR, ETELVINA L 782.0 Numbness (hypesthesia) 01/31/2010 [employer] ROOM OPERATOR, ETELVINA L 719.43 Joint Pain, Localized In The Wrist 01/31/2010 [employer] ROOM OPERATOR, ETELVINA L 782.0 Numbness (hypesthesia) 01/31/2010 [employer] ROOM OPERATOR, ETELVINA L 719.43 Joint Pain, Localized In The Wrist 01/31/2010 [employer] ROOM OPERATOR, ETELVINA L 782.0 Numbness (hypesthesia) 01/31/2010 SALGUERO DO, LADONNA K 719.43 Joint Pain, Localized In The Wrist 01/31/2010 SALGUERO DO, LADONNA K 782.0 Numbness (hypesthesia) 01/31/2010 SALGUERO DO, LADONNA K 719.43 Joint Pain, Localized In The Wrist 01/31/2010 SALGUERO DO, LADONNA K 782.0 Numbness (hypesthesia) 01/31/2010 [employer] ROOM OPERATOR, ETELVINA L 719.43 Joint Pain, Localized In The Wrist 01/31/2010 [employer] ROOM OPERATOR, ETELVINA L 782.0 Numbness (hypesthesia) 01/31/2010 SALGUERO DO LADONNA K 719.43 Joint Pain, Localized In The Wrist 01/31/2010 SALGUERO DO, LADONNA K 782.0 Numbness (hypesthesia) 01/31/2010 [employer] ROOM OPERATORHAMMAD BowserA L 719.43 Joint Pain, Localized In The Wrist 01/31/2010 [employer] ROOM OPERATOR, ETELVINA L 782.0 Numbness (hypesthesia) 03/14/2010 Ot 719.43 03/14/2010 Ot 782.0 03/14/2010 Ot V57.21 04/02/2010 SUSHANT MORA APRNA S 517.3 Acute Chest Syndrome 04/02/2010 517.3 Acute Chest Syndrome 04/02/2010 LAURIE MORA APRN S 517.3 Acute Chest Syndrome 04/02/2010 LAURIE MORA APRN S 517.3 Acute Chest Syndrome 04/02/2010 AMADO OLVERA, ROMELIA 517.3 Acute Chest Syndrome 04/02/2010 BYRON BOSS MD 517.3 Acute Chest Syndrome 04/02/2010 517.3 Acute Chest Syndrome 04/02/2010 517.3 Acute Chest Syndrome 04/02/2010 517.3 Acute Chest Syndrome 04/02/2010 517.3 Acute Chest Syndrome 04/02/2010 BYRON BOSS MD 517.3 Acute Chest Syndrome 04/02/2010 BYRON BOSS MD 517.3 Acute Chest Syndrome 04/02/2010 LADONNA SALGUERO DO K 517.3 Acute Chest Syndrome 04/02/2010 BYRON BOSS MD 517.3 Acute Chest Syndrome 04/02/2010 LADONNA SALGUERO DO K 517.3 Acute Chest Syndrome 04/02/2010 BYRON BOSS MD 517.3 Acute Chest Syndrome 04/02/2010 BYRON BOSS MD 517.3 Acute Chest Syndrome 04/02/2010 NOEMY PRAKASH LADONNA K 517.3 Acute Chest Syndrome 04/02/2010 SALGUERO DO LADONNA K 517.3 Acute Chest Syndrome 04/02/2010 SALGUERO DO LADONNA K 517.3 Acute Chest Syndrome 04/02/2010 SALGUERO DO LADONNA K 517.3 Acute Chest Syndrome 04/02/2010 [employer] ROOM OPERATORHAMMAD BowserA L 517.3 Acute Chest Syndrome 04/02/2010 [employer] ROOM OPERATOR, ETELVINA L 517.3 Acute Chest Syndrome 04/02/2010 [employer] ROOM OPERATOR, ETELVINA L 517.3 Acute Chest Syndrome 04/02/2010 SALGUERO DO, LADONNA K 517.3 Acute Chest Syndrome 04/02/2010 SALGUERO DO, LADONNA K 517.3 Acute Chest Syndrome 04/02/2010 [employer] ROOM OPERATOR, ETELVINA L 517.3 Acute Chest Syndrome 04/02/2010 [employer] ROOM OPERATOR, ETELVINA L 517.3 Acute Chest Syndrome 04/02/2010 [employer] ROOM OPERATOR, ETELVINA L 517.3 Acute Chest Syndrome 04/02/2010 [employer] ROOM OPERATOR, ETELVINA L 517.3 Acute Chest Syndrome 04/02/2010 [employer] ROOM OPERATOR, ETELVINA L 517.3 Acute Chest Syndrome 04/02/2010 [employer] ROOM OPERATOR, ETELVINA L 517.3 Acute Chest Syndrome 04/02/2010 [employer] ROOM OPERATOR, ETELVINA L 517.3 Acute Chest Syndrome 04/02/2010 SALGUERO DO, LADONNA K 517.3 Acute Chest Syndrome 04/02/2010 SALGUERO DO, LADONNA K 517.3 Acute Chest Syndrome 04/02/2010 [employer] ROOM OPERATOR, ETELVINA L 517.3 Acute Chest Syndrome 04/02/2010 SALGUERO DO, LADONNA K 517.3 Acute Chest Syndrome 04/02/2010 [employer] ROOM OPERATOR, ETELVINA L 517.3 Acute Chest Syndrome 04/14/2010 Ot 305.1 04/14/2010 Ot 491.21 04/14/2010 Ot 786.05 05/20/2010 [employer] ROOM OPERATOR, LAURIE S 272.4 HYPERLIPIDEMIA 05/20/2010 [employer] ROOM OPERATOR, LAURIE S 414.01 CAD 05/20/2010 272.4 HYPERLIPIDEMIA 05/20/2010 414.01 CAD 05/20/2010 [employer] ROOM OPERATOR, LAURIE S 272.4 HYPERLIPIDEMIA 05/20/2010 [employer] ROOM OPERATOR, LAURIE S 414.01 CAD 05/20/2010 [employer] ROOM OPERATOR, LAURIE S 272.4 HYPERLIPIDEMIA 05/20/2010 MORGAN HUDSONN, LAURIE S 414.01 CAD 05/20/2010 ROMELIA FISCHER MD 272.4 HYPERLIPIDEMIA 05/20/2010 ROMELIA FISCHER MD 414.01 CAD 05/20/2010 BYRON BOSS MD 272.4 HYPERLIPIDEMIA 05/20/2010 BYRON BOSS MD 414.01 CORONARY ARTERY STENOSIS MULTI-VESSEL 05/20/2010 272.4 HYPERLIPIDEMIA 05/20/2010 414.01 CORONARY ARTERY STENOSIS MULTI-VESSEL 05/20/2010 272.4 HYPERLIPIDEMIA 05/20/2010 414.01 CORONARY ARTERY STENOSIS MULTI-VESSEL 05/20/2010 272.4 HYPERLIPIDEMIA 05/20/2010 414.01 CORONARY ARTERY STENOSIS MULTI-VESSEL 05/20/2010 272.4 HYPERLIPIDEMIA 05/20/2010 414.01 CORONARY ARTERY STENOSIS MULTI-VESSEL 05/20/2010 BYRON BOSS MD 272.4 HYPERLIPIDEMIA 05/20/2010 BYRON BOSS MD 414.01 CORONARY ARTERY STENOSIS MULTI-VESSEL 05/20/2010 BYRON BOSS MD 272.4 HYPERLIPIDEMIA 05/20/2010 BYRON BOSS MD 414.01 CORONARY ARTERY STENOSIS MULTI-VESSEL 05/20/2010 SALGUERO DO, LADONNA K 272.4 HYPERLIPIDEMIA 05/20/2010 SALGUERO DO, LADONNA K 414.01 CORONARY ARTERY STENOSIS MULTI-VESSEL 05/20/2010 BYRON BOSS MD 272.4 HYPERLIPIDEMIA 05/20/2010 BYRON BOSS MD 414.01 CORONARY ARTERY STENOSIS MULTI-VESSEL 05/20/2010 SALGUERO DO, LADONNA K 272.4 HYPERLIPIDEMIA 05/20/2010 SALGUERO DO, LADONNA K 414.01 CORONARY ARTERY STENOSIS MULTI-VESSEL 05/20/2010 BYRON BOSS MD 272.4 HYPERLIPIDEMIA 05/20/2010 BYRON BOSS MD 414.01 CORONARY ARTERY STENOSIS MULTI-VESSEL 05/20/2010 BYRON BOSS MD 272.4 HYPERLIPIDEMIA 05/20/2010 BYRON BOSS MD 414.01 CORONARY ARTERY STENOSIS MULTI-VESSEL 05/20/2010 SALGUERO DO, LADONNA K 272.4 HYPERLIPIDEMIA 05/20/2010 SALGUERO DO, LADONNA K 414.01 CORONARY ARTERY STENOSIS MULTI-VESSEL 05/20/2010 SALGUERO DO, LADONNA K 272.4 HYPERLIPIDEMIA 05/20/2010 SALGUERO DO, LADONNA K 414.01 CORONARY ARTERY STENOSIS MULTI-VESSEL 05/20/2010 SALGUERO DO, LADONNA K 272.4 HYPERLIPIDEMIA 05/20/2010 SALGUERO DO, LADONNA K 414.01 CORONARY ARTERY STENOSIS MULTI-VESSEL 05/20/2010 SALGUERO DO, LADONNA K 272.4 HYPERLIPIDEMIA 05/20/2010 SALGUERO DO, LADONNA K 414.01 CORONARY ARTERY STENOSIS MULTI-VESSEL 05/20/2010 [employer] ROOM OPERATOR, ETELVINA L 272.4 HYPERLIPIDEMIA 05/20/2010 [employer] ROOM OPERATOR, ETELVINA L 414.01 CORONARY ARTERY STENOSIS MULTI-VESSEL 05/20/2010 [employer] ROOM OPERATOR, ETELVINA L 272.4 HYPERLIPIDEMIA 05/20/2010 [employer] ROOM OPERATOR, ETELVINA L 414.01 CORONARY ARTERY STENOSIS MULTI-VESSEL 05/20/2010 [employer] ROOM OPERATOR, ETELVINA L 272.4 HYPERLIPIDEMIA 05/20/2010 [employer] ROOM OPERATOR, ETELVINA L 414.01 CORONARY ARTERY STENOSIS MULTI-VESSEL 05/20/2010 SALGUERO DO, LADONNA K 272.4 HYPERLIPIDEMIA 05/20/2010 SALGUERO DO, LADONNA K 414.01 CORONARY ARTERY STENOSIS MULTI-VESSEL 05/20/2010 SALGUERO DO, LADONNA K 272.4 HYPERLIPIDEMIA 05/20/2010 SALGUERO DO, LADONNA K 414.01 CORONARY ARTERY STENOSIS MULTI-VESSEL 05/20/2010 [employer] ROOM OPERATOR, ETELVINA L 272.4 HYPERLIPIDEMIA 05/20/2010 [employer] ROOM OPERATOR, ETELVINA L 414.01 CORONARY ARTERY STENOSIS MULTI-VESSEL 05/20/2010 [employer] ROOM OPERATOR, ETELVINA L 272.4 HYPERLIPIDEMIA 05/20/2010 [employer] ROOM OPERATOR, ETELVINA L 414.01 CORONARY ARTERY STENOSIS MULTI-VESSEL 05/20/2010 [employer] ROOM OPERATOR, ETELVINA L 272.4 HYPERLIPIDEMIA 05/20/2010 [employer] ROOM OPERATOR, ETELVINA L 414.01 CORONARY ARTERY STENOSIS MULTI-VESSEL 05/20/2010 [employer] ROOM OPERATOR, ETELVINA L 272.4 HYPERLIPIDEMIA 05/20/2010 [employer] ROOM OPERATOR, ETELVINA L 414.01 CORONARY ARTERY STENOSIS MULTI-VESSEL 05/20/2010 [employer] ROOM OPERATOR, ETELVINA L 272.4 HYPERLIPIDEMIA 05/20/2010 [employer] ROOM OPERATOR, ETELVINA L 414.01 CORONARY ARTERY STENOSIS MULTI-VESSEL 05/20/2010 [employer] ROOM OPERATOR, ETELVINA L 272.4 HYPERLIPIDEMIA 05/20/2010 [employer] ROOM OPERATOR, ETELVINA L 414.01 CORONARY ARTERY STENOSIS MULTI-VESSEL 05/20/2010 [employer] ROOM OPERATOR, ETELVINA L 272.4 HYPERLIPIDEMIA 05/20/2010 [employer] ROOM OPERATOR, ETELVINA L 414.01 CORONARY ARTERY STENOSIS MULTI-VESSEL 05/20/2010 SALGUERO DO, LADONNA K 272.4 HYPERLIPIDEMIA 05/20/2010 SALGUERO DO, LADONNA K 414.01 CORONARY ARTERY STENOSIS MULTI-VESSEL 05/20/2010 SALGUERO DO, LADONNA K 272.4 HYPERLIPIDEMIA 05/20/2010 SALGUERO DO, LADONNA K 414.01 CORONARY ARTERY STENOSIS MULTI-VESSEL 05/20/2010 [employer] ROOM OPERATOR, ETELVINA L 272.4 HYPERLIPIDEMIA 05/20/2010 [employer] ROOM OPERATOR, ETELVINA L 414.01 CORONARY ARTERY STENOSIS MULTI-VESSEL 05/20/2010 SALGUERO DO, LADONNA K 272.4 HYPERLIPIDEMIA 05/20/2010 SALGUERO DO, LADONNA K 414.01 CORONARY ARTERY STENOSIS MULTI-VESSEL 05/20/2010 [employer] ROOM OPERATOR, ETELVINA L 272.4 HYPERLIPIDEMIA 05/20/2010 [employer] ROOM OPERATOR, ETELVINA L 414.01 CORONARY ARTERY STENOSIS MULTI-VESSEL 05/26/2010 Ot 842.00 05/26/2010 Ot 959.3 05/26/2010 Ot E000.8 05/26/2010 Ot E013.9 05/26/2010 Ot E849.0 05/26/2010 Ot E917.9 07/31/2010 LAURIE MORA APRN S 356.9 UNSPECIFIED IDIOPATHIC PERIPHERAL NEUROPATHY 07/31/2010 356.9 UNSPECIFIED IDIOPATHIC PERIPHERAL NEUROPATHY 07/31/2010 LAURIE MORA APRN S 356.9 UNSPECIFIED IDIOPATHIC PERIPHERAL NEUROPATHY 07/31/2010 LAURIE MORA APRN 356.9 UNSPECIFIED IDIOPATHIC PERIPHERAL NEUROPATHY 07/31/2010 ROMELIA FISCHER MD 356.9 UNSPECIFIED IDIOPATHIC PERIPHERAL NEUROPATHY 07/31/2010 BYRON BOSS MD 356.9 UNSPECIFIED IDIOPATHIC PERIPHERAL NEUROPATHY 07/31/2010 356.9 UNSPECIFIED IDIOPATHIC PERIPHERAL NEUROPATHY 07/31/2010 356.9 UNSPECIFIED IDIOPATHIC PERIPHERAL NEUROPATHY 07/31/2010 356.9 UNSPECIFIED IDIOPATHIC PERIPHERAL NEUROPATHY 07/31/2010 356.9 UNSPECIFIED IDIOPATHIC PERIPHERAL NEUROPATHY 07/31/2010 BYRON BOSS MD 356.9 UNSPECIFIED IDIOPATHIC PERIPHERAL NEUROPATHY 07/31/2010 KARYN MD, BYRON M 356.9 UNSPECIFIED IDIOPATHIC PERIPHERAL NEUROPATHY 07/31/2010 SALGUERO DO, LADONNA K 356.9 UNSPECIFIED IDIOPATHIC PERIPHERAL NEUROPATHY 07/31/2010 KARYN OLVERA, BYRON Bruner 356.9 UNSPECIFIED IDIOPATHIC PERIPHERAL NEUROPATHY 07/31/2010 SALGUERO DO, LADONNA K 356.9 UNSPECIFIED IDIOPATHIC PERIPHERAL NEUROPATHY 07/31/2010 KARYN OLVERA, BYRON Bruner 356.9 UNSPECIFIED IDIOPATHIC PERIPHERAL NEUROPATHY 07/31/2010 BYRON BOSS MD 356.9 UNSPECIFIED IDIOPATHIC PERIPHERAL NEUROPATHY 07/31/2010 SALGUERO DO, LADONNA K 356.9 UNSPECIFIED IDIOPATHIC PERIPHERAL NEUROPATHY 07/31/2010 SALGUERO DO, LADONNA K 356.9 UNSPECIFIED IDIOPATHIC PERIPHERAL NEUROPATHY 07/31/2010 SALGUERO DO, LADONNA K 356.9 UNSPECIFIED IDIOPATHIC PERIPHERAL NEUROPATHY 07/31/2010 SALGUERO DO, LADONNA K 356.9 UNSPECIFIED IDIOPATHIC PERIPHERAL NEUROPATHY 07/31/2010 [employer] ROOM OPERATOR, ETELVINA L 356.9 UNSPECIFIED IDIOPATHIC PERIPHERAL NEUROPATHY 07/31/2010 [employer] ROOM OPERATOR, ETELVINA L 356.9 UNSPECIFIED IDIOPATHIC PERIPHERAL NEUROPATHY 07/31/2010 [employer] ROOM OPERATOR, ETELVINA L 356.9 UNSPECIFIED IDIOPATHIC PERIPHERAL NEUROPATHY 07/31/2010 SALGUERO DO, LADONNA K 356.9 UNSPECIFIED IDIOPATHIC PERIPHERAL NEUROPATHY 07/31/2010 SALGUERO DO, LADONNA K 356.9 UNSPECIFIED IDIOPATHIC PERIPHERAL NEUROPATHY 07/31/2010 [employer] ROOM OPERATOR, ETELVINA L 356.9 UNSPECIFIED IDIOPATHIC PERIPHERAL NEUROPATHY 07/31/2010 [employer] ROOM OPERATOR, ETELVINA L 356.9 UNSPECIFIED IDIOPATHIC PERIPHERAL NEUROPATHY 07/31/2010 [employer] ROOM OPERATOR, ETELVINA L 356.9 UNSPECIFIED IDIOPATHIC PERIPHERAL NEUROPATHY 07/31/2010 [employer] ROOM OPERATOR, ETELVINA L 356.9 UNSPECIFIED IDIOPATHIC PERIPHERAL NEUROPATHY 07/31/2010 [employer] ROOM OPERATOR, ETELVINA L 356.9 UNSPECIFIED IDIOPATHIC PERIPHERAL NEUROPATHY 07/31/2010 [employer] ROOM OPERATOR, ETELVINA L 356.9 UNSPECIFIED IDIOPATHIC PERIPHERAL NEUROPATHY 07/31/2010 [employer] ROOM OPERATOR, ETELVINA L 356.9 UNSPECIFIED IDIOPATHIC PERIPHERAL NEUROPATHY 07/31/2010 SALGUERO DO, LADONNA K 356.9 UNSPECIFIED IDIOPATHIC PERIPHERAL NEUROPATHY 07/31/2010 SALGUERO DO, LADONNA K 356.9 UNSPECIFIED IDIOPATHIC PERIPHERAL NEUROPATHY 07/31/2010 [employer] ROOM OPERATOR, ETELVINA L 356.9 UNSPECIFIED IDIOPATHIC PERIPHERAL NEUROPATHY 07/31/2010 SALGUERO DO, LADONNA K 356.9 UNSPECIFIED IDIOPATHIC PERIPHERAL NEUROPATHY 07/31/2010 [employer] ROOM OPERATOR, ETELVINA L 356.9 UNSPECIFIED IDIOPATHIC PERIPHERAL NEUROPATHY 08/01/2010 [employer] ROOM OPERATOR, LAURIE S 791.0 Microalbuminuria 08/01/2010 791.0 Microalbuminuria 08/01/2010 [employer] ROOM OPERATOR, LAURIE S 791.0 Microalbuminuria 08/01/2010 [employer] ROOM OPERATOR, LAURIE S 791.0 Microalbuminuria 08/01/2010 ROMELIA FISCHER MD 791.0 Microalbuminuria 08/01/2010 BYRON BOSS MD 791.0 Microalbuminuria 08/01/2010 791.0 Microalbuminuria 08/01/2010 791.0 Microalbuminuria 08/01/2010 791.0 Microalbuminuria 08/01/2010 791.0 Microalbuminuria 08/01/2010 BYRON BOSS MD M 791.0 Microalbuminuria 08/01/2010 BYRON BOSS MD M 791.0 Microalbuminuria 08/01/2010 SALGUERO DO, LADONNA K 791.0 Microalbuminuria 08/01/2010 BYRON BOSS MD M 791.0 Microalbuminuria 08/01/2010 SALGUERO DO, LADONNA K 791.0 Microalbuminuria 08/01/2010 BYRON BOSS MD M 791.0 Microalbuminuria 08/01/2010 BYRON BOSS MD M 791.0 Microalbuminuria 08/01/2010 SALGUERO DO, LADONNA K 791.0 Microalbuminuria 08/01/2010 SALGUERO DO, LADONNA K 791.0 Microalbuminuria 08/01/2010 SALGUERO DO, LADONNA K 791.0 Microalbuminuria 08/01/2010 SALGUERO DO, LADONNA K 791.0 Microalbuminuria 08/01/2010 [employer] ROOM OPERATOR, ETELVINA L 791.0 Microalbuminuria 08/01/2010 [employer] ROOM OPERATOR, ETELVINA L 791.0 Microalbuminuria 08/01/2010 [employer] ROOM OPERATOR, ETELVINA L 791.0 Microalbuminuria 08/01/2010 SALGUERO DO, LADONNA K 791.0 Microalbuminuria 08/01/2010 SALGUERO DO, LADONNA K 791.0 Microalbuminuria 08/01/2010 [employer] ROOM OPERATOR, ETELVINA L 791.0 Microalbuminuria 08/01/2010 [employer] ROOM OPERATOR, ETELVINA L 791.0 Microalbuminuria 08/01/2010 [employer] ROOM OPERATOR, ETELVINA L 791.0 Microalbuminuria 08/01/2010 [employer] ROOM OPERATOR, ETELVINA L 791.0 Microalbuminuria 08/01/2010 [employer] CONTR[employer] ROOM OPERATOR, ETELVINA L 791.0 Microalbuminuria 08/01/2010 [employer] ROOM OPERATOR, ETELVINA L 791.0 Microalbuminuria 08/01/2010 [employer] ROOM OPERATOR, ETELVINA L 791.0 Microalbuminuria 08/01/2010 SALGUERO DO, LADONNA K 791.0 Microalbuminuria 08/01/2010 SALGUERO DO, LADONNA K 791.0 Microalbuminuria 08/01/2010 [employer] ROOM OPERATOR, ETELVINA L 791.0 Microalbuminuria 08/01/2010 SALGUERO DO, LADONNA K 791.0 Microalbuminuria 08/01/2010 [employer] ROOM OPERATOR, ETELVINA L 791.0 Microalbuminuria 08/05/2010 LAURIE MORA APRN S 721.0 CERVICAL SPONDYLOSIS WITHOUT MYELOPATHY 08/05/2010 721.0 Cervical Spondylosis Without Myelopathy 08/05/2010 LAURIE MORA APRN S 721.0 Cervical Spondylosis Without Myelopathy 08/05/2010 SUSHANT MORA APRNA S 721.0 Cervical Spondylosis Without Myelopathy 08/05/2010 ROMELIA FISCHER MD 721.0 Cervical Spondylosis Without Myelopathy 08/05/2010 BYRON BOSS MD 721.0 Cervical Spondylosis Without Myelopathy 08/05/2010 721.0 Cervical Spondylosis Without Myelopathy 08/05/2010 721.0 Cervical Spondylosis Without Myelopathy 08/05/2010 721.0 Cervical Spondylosis Without Myelopathy 08/05/2010 721.0 Cervical Spondylosis Without Myelopathy 08/05/2010 BYRON BOSS MD 721.0 Cervical Spondylosis Without Myelopathy 08/05/2010 BYRON BOSS MD 721.0 Cervical Spondylosis Without Myelopathy 08/05/2010 SALGUERO DO, LADONNA K 721.0 Cervical Spondylosis Without Myelopathy 08/05/2010 KARYN OLVERA, BYRON Bruner 721.0 Cervical Spondylosis Without Myelopathy 08/05/2010 SALGUERO DO, LADONNA K 721.0 Cervical Spondylosis Without Myelopathy 08/05/2010 KARYN OLVERA, BYRON M 721.0 Cervical Spondylosis Without Myelopathy 08/05/2010 KARYN OLVERA, BYRON Bruner 721.0 Cervical Spondylosis Without Myelopathy 08/05/2010 SALGUERO DO, LADONNA K 721.0 Cervical Spondylosis Without Myelopathy 08/05/2010 SALGUERO DO, LADONNA K 721.0 Cervical Spondylosis Without Myelopathy 08/05/2010 SALGUERO DO, LADONNA K 721.0 Cervical Spondylosis Without Myelopathy 08/05/2010 SALGUERO DO, LADONNA K 721.0 Cervical Spondylosis Without Myelopathy 08/05/2010 [employer] ROOM OPERATOR, ETELVINA L 721.0 Cervical Spondylosis Without Myelopathy 08/05/2010 [employer] ROOM OPERATOR, ETELVINA L 721.0 Cervical Spondylosis Without Myelopathy 08/05/2010 [employer] ROOM OPERATOR, ETELVINA L 721.0 Cervical Spondylosis Without Myelopathy 08/05/2010 SALGUERO DO, LADONNA K 721.0 Cervical Spondylosis Without Myelopathy 08/05/2010 SALGUERO DO, LADONNA K 721.0 Cervical Spondylosis Without Myelopathy 08/05/2010 [employer] CONTR[employer] ROOM OPERATOR, ETELVINA L 721.0 Cervical Spondylosis Without Myelopathy 08/05/2010 [employer] ROOM OPERATOR, ETELVINA L 721.0 Cervical Spondylosis Without Myelopathy 08/05/2010 [employer] ROOM OPERATOR, ETELVINA L 721.0 Cervical Spondylosis Without Myelopathy 08/05/2010 [employer] ROOM OPERATOR, ETELVINA L 721.0 Cervical Spondylosis Without Myelopathy 08/05/2010 [employer] ROOM OPERATOR, ETELVINA L 721.0 Cervical Spondylosis Without Myelopathy 08/05/2010 [employer] ROOM OPERATOR, ETELVINA L 721.0 Cervical Spondylosis Without Myelopathy 08/05/2010 [employer] ROOM OPERATOR, ETELVINA L 721.0 Cervical Spondylosis Without Myelopathy 08/05/2010 SALGUERO DO, LADONNA K 721.0 Cervical Spondylosis Without Myelopathy 08/05/2010 SALGUERO DO, LADONNA K 721.0 Cervical Spondylosis Without Myelopathy 08/05/2010 [employer] ROOM OPERATOR, ETELVINA Goodman 721.0 Cervical Spondylosis Without Myelopathy 08/05/2010 LADONNA SALGUERO DO K 721.0 Cervical Spondylosis Without Myelopathy 08/05/2010 [employer] ROOM OPERATOR, ETELVINA Goodman 721.0 Cervical Spondylosis Without Myelopathy 08/07/2010 Ot 847.0 08/07/2010 Ot 847.2 08/07/2010 Ot 959.09 08/07/2010 Ot E000.8 08/07/2010 Ot E849.0 08/07/2010 Ot E884.2 08/13/2010 MORGAN HARRIS LAURIE S 441.4 ABDOMINAL ANEURYSM WITHOUT MENTION OF RUPTURE 08/13/2010 [employer] ROOM OPERATOR, LAURIE S 724.2 LUMBAGO 08/13/2010 441.4 Abdominal Aneurysm Without Mention Of Rupture 08/13/2010 724.2 LUMBAGO 08/13/2010 MORGAN HARRIS LAURIE S 441.4 Abdominal Aneurysm Without Mention Of Rupture 08/13/2010 [employer] ROOM OPERATOR, LAURIE S 724.2 LUMBAGO 08/13/2010 [employer] ROOM OPERATOR, LAURIE S 441.4 Abdominal Aneurysm Without Mention Of Rupture 08/13/2010 MORGAN HARRIS LAURIE S 724.2 LUMBAGO 08/13/2010 ROMELIA FISCHER MD 441.4 Abdominal Aneurysm Without Mention Of Rupture 08/13/2010 ROMELIA FISCHER MD 724.2 LUMBAGO 08/13/2010 BYRON BOSS MD 441.4 Abdominal Aneurysm Without Mention Of Rupture 08/13/2010 BYRON BOSS MD 724.2 lower back pain 08/13/2010 441.4 Abdominal Aneurysm Without Mention Of Rupture 08/13/2010 724.2 lower back pain 08/13/2010 441.4 Abdominal Aneurysm Without Mention Of Rupture 08/13/2010 724.2 lower back pain 08/13/2010 441.4 Abdominal Aneurysm Without Mention Of Rupture 08/13/2010 724.2 lower back pain 08/13/2010 441.4 Abdominal Aneurysm Without Mention Of Rupture 08/13/2010 724.2 lower back pain 08/13/2010 BYRON BOSS MD 441.4 Abdominal Aneurysm Without Mention Of Rupture 08/13/2010 BYRON BOSS MD 724.2 lower back pain 08/13/2010 BYRON BOSS MD 441.4 Abdominal Aneurysm Without Mention Of Rupture 08/13/2010 BYRON BOSS MD 724.2 lower back pain 08/13/2010 SALGUERO DO, LADONNA K 441.4 Abdominal Aneurysm Without Mention Of Rupture 08/13/2010 SALGUERO DO, LADONNA K 724.2 lower back pain 08/13/2010 BYRON BOSS MD 441.4 Abdominal Aneurysm Without Mention Of Rupture 08/13/2010 BYRON BOSS MD 724.2 lower back pain 08/13/2010 SALGUERO DO, LADONNA K 441.4 Abdominal Aneurysm Without Mention Of Rupture 08/13/2010 SALGUERO DO, LADONNA K 724.2 lower back pain 08/13/2010 BYRON BOSS MD 441.4 Abdominal Aneurysm Without Mention Of Rupture 08/13/2010 BYRON BOSS MD 724.2 lower back pain 08/13/2010 BYRON BOSS MD 441.4 Abdominal Aneurysm Without Mention Of Rupture 08/13/2010 BYRON BOSS MD 724.2 lower back pain 08/13/2010 SALGUERO DO, LADONNA K 441.4 Abdominal Aneurysm Without Mention Of Rupture 08/13/2010 SALGUERO DO, LADONNA K 724.2 lower back pain 08/13/2010 SALGUERO DO, LADONNA K 441.4 Abdominal Aneurysm Without Mention Of Rupture 08/13/2010 SALGUERO DO, LADONNA K 724.2 lower back pain 08/13/2010 SALGUERO DO, LADONNA K 441.4 Abdominal Aneurysm Without Mention Of Rupture 08/13/2010 SALGUERO DO, LADONNA K 724.2 lower back pain 08/13/2010 SALGUERO DO, LADONNA K 441.4 Abdominal Aneurysm Without Mention Of Rupture 08/13/2010 SALGUERO DO, LADONNA K 724.2 lower back pain 08/13/2010 [employer] OPERATOR, ETELVINA L 441.4 Abdominal Aneurysm Without Mention Of Rupture 08/13/2010 [employer]OM OPERATOR, ETELVINA L 724.2 lower back pain 08/13/2010 [employer] ROOM OPERATOR, ETELVINA L 441.4 Abdominal Aneurysm Without Mention Of Rupture 08/13/2010 [employer] ROOM OPERATOR, ETELVINA L 724.2 lower back pain 08/13/2010 [employer] ROOM OPERATOR, ETELVINA L 441.4 Abdominal Aneurysm Without Mention Of Rupture 08/13/2010 [employer] ROOM OPERATOR, ETELVINA L 724.2 lower back pain 08/13/2010 SALGUERO DO, LADONNA K 441.4 Abdominal Aneurysm Without Mention Of Rupture 08/13/2010 SALGUERO DO, LADONNA K 724.2 lower back pain 08/13/2010 SALGUERO DO, LADONNA K 441.4 Abdominal Aneurysm Without Mention Of Rupture 08/13/2010 SALGUERO DO, LADONNA K 724.2 lower back pain 08/13/2010 [employer]OM OPERATOR, ETELVINA L 441.4 Abdominal Aneurysm Without Mention Of Rupture 08/13/2010 [employer]OM OPERATOR, ETELVINA L 724.2 lower back pain 08/13/2010 [employer]OM OPERATOR, ETELVINA L 441.4 Abdominal Aneurysm Without Mention Of Rupture 08/13/2010 [employer]OM OPERATOR, ETELVINA L 724.2 lower back pain 08/13/2010 [employer] ROOM OPERATOR, ETELVINA L 441.4 Abdominal Aneurysm Without Mention Of Rupture 08/13/2010 [employer] ROOM OPERATOR, ETELVINA L 724.2 lower back pain 08/13/2010 [employer] ROOM OPERATOR, ETELVINA L 441.4 Abdominal Aneurysm Without Mention Of Rupture 08/13/2010 [employer] ROOM OPERATOR, ETELVINA L 724.2 lower back pain 08/13/2010 [employer] ROOM OPERATOR, ETELVINA L 441.4 Abdominal Aneurysm Without Mention Of Rupture 08/13/2010 [employer] ROOM OPERATOR, ETELVINA L 724.2 lower back pain 08/13/2010 [employer] ROOM OPERATOR, ETELVINA L 441.4 Abdominal Aneurysm Without Mention Of Rupture 08/13/2010 [employer] ROOM OPERATOR, ETELVINA L 724.2 lower back pain 08/13/2010 [employer] ROOM OPERATOR, ETELVINA L 441.4 Abdominal Aneurysm Without Mention Of Rupture 08/13/2010 [employer] ROOM OPERATOR, ETELVINA L 724.2 lower back pain 08/13/2010 SALGUERO DO, LADONNA K 441.4 Abdominal Aneurysm Without Mention Of Rupture 08/13/2010 SALGUERO DO, LADONNA K 724.2 lower back pain 08/13/2010 TERE SALGUERO DOA K 441.4 Abdominal Aneurysm Without Mention Of Rupture 08/13/2010 NOEMY DOTEREA K 724.2 lower back pain 08/13/2010 [employer] ROOM OPERATORETELVINA Bowser L 441.4 Abdominal Aneurysm Without Mention Of Rupture 08/13/2010 HUGOL ETELVINA HARRIS L 724.2 lower back pain 08/13/2010 TERE SALGUERO DOA K 441.4 Abdominal Aneurysm Without Mention Of Rupture 08/13/2010 TERE SALGUERO DOA K 724.2 lower back pain 08/13/2010 [employer] ROOM OPERATORHAMMAD BowserA L 441.4 Abdominal Aneurysm Without Mention Of Rupture 08/13/2010 MADL ETELVINA HARRIS L 724.2 lower back pain 09/05/2010 Ot 250.00 09/05/2010 Ot 272.4 09/05/2010 Ot 413.9 09/05/2010 Ot 414.01 09/05/2010 Ot 496 09/05/2010 Ot 786.05 09/05/2010 Ot V14.6 09/05/2010 Ot V45.82 11/08/2010 Ot 250.00 11/08/2010 Ot 311 11/08/2010 Ot 401.9 11/08/2010 Ot 496 11/08/2010 Ot 724.1 11/08/2010 Ot 724.2 11/08/2010 Ot V45.82 11/08/2010 Ot V57.1 12/12/2010 PALOMA MORA APRNNDA S 719.40 Pain In Joint Site Unspecified 12/12/2010 PALOMA MORA APRNNDA S 724.5 Back Pain, General 12/12/2010 PALOMA MORA APRNNDA S 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 12/12/2010 PALOMA MORA APRNNDA S 729.5 Arm Pain 12/12/2010 719.40 Pain In Joint Site Unspecified 12/12/2010 724.5 Back Pain, General 12/12/2010 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 12/12/2010 729.5 Arm Pain 12/12/2010 PALOMA MORA APRNNDA S 719.40 Pain In Joint Site Unspecified 12/12/2010 [employer] ROOM OPERATOR, LAURIE S 724.5 Back Pain, General 12/12/2010 [employer] ROOM OPERATOR, LAURIE S 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 12/12/2010 [employer] ROOM OPERATOR, LAURIE S 729.5 Arm Pain 12/12/2010 [employer] ROOM OPERATOR, LAURIE S 719.40 Pain In Joint Site Unspecified 12/12/2010 [employer] ROOM OPERATOR, LAURIE S 724.5 Back Pain, General 12/12/2010 [employer] ROOM OPERATOR, LAURIE S 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 12/12/2010 [employer] ROOM OPERATOR, LAURIE S 729.5 Arm Pain 12/12/2010 AMADO OLVERA, ROMELIA 719.40 Pain In Joint Site Unspecified 12/12/2010 AMADO OLVERA, ROMELIA 724.5 Back Pain, General 12/12/2010 AMADO OLVERA, ROMELIA 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 12/12/2010 AMADO OLVERA, ROMELIA 729.5 Arm Pain 12/12/2010 BYRON BOSS MD 719.40 Pain In Joint Site Unspecified 12/12/2010 BYRON BOSS MD 724.5 Back Pain, General 12/12/2010 KARYN OLVERA, BYRON Bruner 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 12/12/2010 BYRON BOSS MD 729.5 Arm Pain 12/12/2010 719.40 Pain In Joint Site Unspecified 12/12/2010 724.5 Back Pain, General 12/12/2010 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 12/12/2010 729.5 Arm Pain 12/12/2010 719.40 Pain In Joint Site Unspecified 12/12/2010 724.5 Back Pain, General 12/12/2010 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 12/12/2010 729.5 Arm Pain 12/12/2010 719.40 Pain In Joint Site Unspecified 12/12/2010 724.5 Back Pain, General 12/12/2010 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 12/12/2010 729.5 Arm Pain 12/12/2010 719.40 Pain In Joint Site Unspecified 12/12/2010 724.5 Back Pain, General 12/12/2010 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 12/12/2010 729.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 12/12/2010 BYRON BOSS MD 729.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 12/12/2010 BYRON BOSS MD 729.5 Arm Pain 12/12/2010 NOEMY DO LADONNA K 719.40 Pain In Joint Site Unspecified 12/12/2010 NOEMY DO LADONNA K 724.5 Back Pain, General 12/12/2010 SALGUERO DO LADONNA K 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 12/12/2010 SALGUERO DO LADONNA K 729.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 12/12/2010 BYRON BOSS MD 729.5 Arm Pain 12/12/2010 SALGUERO DO LADONNA K 719.40 Pain In Joint Site Unspecified 12/12/2010 SALGUERO DO LADONNA K 724.5 Back Pain, General 12/12/2010 SALGUERO DO LADONNA K 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 12/12/2010 SALGUERO DO LADONNA K 729.5 Arm Pain 12/12/2010 BYRON BOSS MD 719.40 Pain In Joint Site Unspecified 12/12/2010 BYRON BOSS MD 72Suman.5 Back Pain, General 12/12/2010 BYRON BOSS MD 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 12/12/2010 BYRON BOSS MD 729.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 12/12/2010 BYRON BOSS MD 729.5 Arm Pain 12/12/2010 SALGEURO DO, LADONNA K 719.40 Pain In Joint Site Unspecified 12/12/2010 SALGUERO DO, LADONNA K 724.5 Back Pain, General 12/12/2010 SALGUERO DO, LADONNA K 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 12/12/2010 SALGUERO DO, LADONNA K 729.5 Arm Pain 12/12/2010 SALGUERO DO, LADONNA K 719.40 Pain In Joint Site Unspecified 12/12/2010 SALGUERO DO, LADONNA K 724.5 Back Pain, General 12/12/2010 SALGUERO DO, LADONNA K 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 12/12/2010 SALGUERO DO, LADONNA K 729.5 Arm Pain 12/12/2010 SALGUERO DO, LADONNA K 719.40 Pain In Joint Site Unspecified 12/12/2010 SALGUERO DO, LADONNA K 724.5 Back Pain, General 12/12/2010 SALGUERO DO, LADONNA K 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 12/12/2010 SALGUERO DO, LADONNA K 729.5 Arm Pain 12/12/2010 SALGUERO DO, LADONNA K 719.40 Pain In Joint Site Unspecified 12/12/2010 SALGUERO DO, LADONNA K 724.5 Back Pain, General 12/12/2010 SALGUERO DO, LADONNA K 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 12/12/2010 SALGUERO DO, LADONNA K 729.5 Arm Pain 12/12/2010 [employer] ROOM OPERATOR, ETELVINA L 719.40 Pain In Joint Site Unspecified 12/12/2010 [employer] ROOM OPERATOR, ETELVINA L 724.5 Back Pain, General 12/12/2010 [employer] ROOM OPERATOR, ETELVINA L 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 12/12/2010 [employer] ROOM OPERATOR, ETELVINA L 729.5 Arm Pain 12/12/2010 [employer] ROOM OPERATOR, ETELVINA L 719.40 Pain In Joint Site Unspecified 12/12/2010 [employer] ROOM OPERATOR, ETELVINA L 724.5 Back Pain, General 12/12/2010 [employer] ROOM OPERATOR, ETELVINA L 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 12/12/2010 [employer] ROOM OPERATOR, ETELVINA L 729.5 Arm Pain 12/12/2010 [employer] ROOM OPERATOR, ETELVINA L 719.40 Pain In Joint Site Unspecified 12/12/2010 [employer] ROOM OPERATOR, ETELVINA L 724.5 Back Pain, General 12/12/2010 [employer] ROOM OPERATOR, ETELVINA L 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 12/12/2010 [employer] ROOM OPERATOR, ETELVINA L 729.5 Arm Pain 12/12/2010 SALGUERO DO, LADONNA K 719.40 Pain In Joint Site Unspecified 12/12/2010 SALGUERO DO, LADONNA K 724.5 Back Pain, General 12/12/2010 SALGUERO DO, LADONNA K 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 12/12/2010 SALGUERO DO, LADONNA K 729.5 Arm Pain 12/12/2010 SALGUERO DO, LADONNA K 719.40 Pain In Joint Site Unspecified 12/12/2010 SALGUERO DO, LADONNA K 724.5 Back Pain, General 12/12/2010 SALGUERO DO, LADONNA K 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 12/12/2010 SALGUERO DO, LADONNA K 729.5 Arm Pain 12/12/2010 [employer] ROOM OPERATOR, ETELVINA L 719.40 Pain In Joint Site Unspecified 12/12/2010 [employer] ROOM OPERATOR, ETELVINA L 724.5 Back Pain, General 12/12/2010 [employer] ROOM OPERATOR, ETELVINA L 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 12/12/2010 [employer] ROOM OPERATOR, ETELVINA L 729.5 Arm Pain 12/12/2010 [employer] ROOM OPERATOR, ETELVINA L 719.40 Pain In Joint Site Unspecified 12/12/2010 [employer] ROOM OPERATOR, ETELVINA L 724.5 Back Pain, General 12/12/2010 [employer] ROOM OPERATOR, ETELVINA L 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 12/12/2010 [employer] ROOM OPERATOR, ETELVINA L 729.5 Arm Pain 12/12/2010 [employer] ROOM OPERATOR, ETELVINA L 719.40 Pain In Joint Site Unspecified 12/12/2010 [employer] ROOM OPERATOR, ETELVINA L 724.5 Back Pain, General 12/12/2010 [employer] ROOM OPERATOR, EETLVINA L 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 12/12/2010 [employer] ROOM OPERATOR, ETELVINA L 729.5 Arm Pain 12/12/2010 [employer] ROOM OPERATOR, ETELVINA L 719.40 Pain In Joint Site Unspecified 12/12/2010 [employer] ROOM OPERATOR, ETELVINA L 724.5 Back Pain, General 12/12/2010 [employer] ROOM OPERATOR, ETELVINA L 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 12/12/2010 [employer] ROOM OPERATOR, ETELVINA L 729.5 Arm Pain 12/12/2010 [employer] ROOM OPERATOR, ETELVINA L 719.40 Pain In Joint Site Unspecified 12/12/2010 [employer] ROOM OPERATOR, ETELVINA L 724.5 Back Pain, General 12/12/2010 [employer] ROOM OPERATOR, ETELVINA L 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 12/12/2010 [employer] ROOM OPERATOR, ETELVINA L 729.5 Arm Pain 12/12/2010 [employer] ROOM OPERATOR, ETELVINA L 719.40 Pain In Joint Site Unspecified 12/12/2010 [employer] ROOM OPERATOR, ETELVINA L 724.5 Back Pain, General 12/12/2010 [employer] ROOM OPERATOR, ETELVINA L 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 12/12/2010 [employer] ROOM OPERATOR, ETELVINA L 729.5 Arm Pain 12/12/2010 [employer] ROOM OPERATOR, ETELVINA L 719.40 Pain In Joint Site Unspecified 12/12/2010 [employer] ROOM OPERATOR, ETELVINA L 724.5 Back Pain, General 12/12/2010 [employer] ROOM OPERATOR, ETELVINA L 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 12/12/2010 [employer] ROOM OPERATOR, ETELVINA L 729.5 Arm Pain 12/12/2010 SALGUERO DO, LADONNA K 719.40 Pain In Joint Site Unspecified 12/12/2010 SALGUERO DO, LADONNA K 724.5 Back Pain, General 12/12/2010 SALGUERO DO LADONNA K 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 12/12/2010 SALGUERO DO, LADONNA K 729.5 Arm Pain 12/12/2010 SALGUERO DO, LADONNA K 719.40 Pain In Joint Site Unspecified 12/12/2010 SALGUERO DO, LADONNA K 724.5 Back Pain, General 12/12/2010 SALGUERO DO, LADONNA K 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 12/12/2010 SALGUERO DO, LADONNA K 729.5 Arm Pain 12/12/2010 [employer] ROOM OPERATOR, ETELVINA L 719.40 Pain In Joint Site Unspecified 12/12/2010 [employer] ROOM OPERATOR, ETELVINA L 724.5 Back Pain, General 12/12/2010 [employer] ROOM OPERATOR, ETELVINA L 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 12/12/2010 [employer] ROOM OPERATOR, ETELVINA L 729.5 Arm Pain 12/12/2010 SALGUERO DO, LADONNA K 719.40 Pain In Joint Site Unspecified 12/12/2010 SALGUERO DO, LADONNA K 724.5 Back Pain, General 12/12/2010 SALGUERO DO, LADONNA K 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 12/12/2010 SALGUERO DO, LADONNA K 729.5 Arm Pain 12/12/2010 [employer] ROOM OPERATOR, ETELVINA L 719.40 Pain In Joint Site Unspecified 12/12/2010 [employer] ROOM OPERATOR, ETELVINA L 724.5 Back Pain, General 12/12/2010 [employer] ROOM OPERATOR, ETELVINA L 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 12/12/2010 [employer] ROOM OPERATOR, ETELVINA L 729.5 Arm Pain 01/22/2011 Ot 250.00 01/22/2011 Ot 727.04 01/22/2011 Ot V58.69 02/12/2011 Ot 250.00 02/12/2011 Ot 354.0 02/12/2011 Ot 354.2 02/12/2011 Ot V58.69 03/19/2011 Ot 250.00 03/19/2011 Ot 354.0 03/19/2011 Ot 354.2 03/19/2011 Ot V58.69 06/17/2011 LAURIE MORA APRN S V68.1 ISSUE OF REPEAT PRESCRIPTIONS 06/17/2011 V68.1 ISSUE OF REPEAT PRESCRIPTIONS 06/17/2011 LAURIE MORA APRN S V68.1 ISSUE OF REPEAT PRESCRIPTIONS 06/17/2011 LAURIE MORA APRN S V68.1 ISSUE OF REPEAT PRESCRIPTIONS 06/17/2011 ROMELIA FISCHER MD V68.1 ISSUE OF REPEAT PRESCRIPTIONS 06/17/2011 BYRON BOSS MD V68.1 ISSUE OF REPEAT PRESCRIPTIONS 06/17/2011 V68.1 ISSUE OF REPEAT PRESCRIPTIONS 06/17/2011 V68.1 ISSUE OF REPEAT PRESCRIPTIONS 06/17/2011 V68.1 ISSUE OF REPEAT PRESCRIPTIONS 06/17/2011 V68.1 ISSUE OF REPEAT PRESCRIPTIONS 06/17/2011 BYRON BOSS MD V68.1 ISSUE OF REPEAT PRESCRIPTIONS 06/17/2011 BYRON BOSS MD V68.1 ISSUE OF REPEAT PRESCRIPTIONS 06/17/2011 NOEMY PRAKASH LADONNA K V68.1 ISSUE OF REPEAT PRESCRIPTIONS 06/17/2011 BYRON BOSS MD V68.1 ISSUE OF REPEAT PRESCRIPTIONS 06/17/2011 NOEMY PRAKASH LADONNA K V68.1 ISSUE OF REPEAT PRESCRIPTIONS 06/17/2011 BYRON BOSS MD V68.1 ISSUE OF REPEAT PRESCRIPTIONS 06/17/2011 BYRON BOSS MD V68.1 ISSUE OF REPEAT PRESCRIPTIONS 06/17/2011 SALGUERO DO LADONNA K V68.1 ISSUE OF REPEAT PRESCRIPTIONS 06/17/2011 SALGUERO DO, LADONNA K V68.1 ISSUE OF REPEAT PRESCRIPTIONS 06/17/2011 SALGUERO DO, LADONNA K V68.1 ISSUE OF REPEAT PRESCRIPTIONS 06/17/2011 SALGUERO DO, LADONNA K V68.1 ISSUE OF REPEAT PRESCRIPTIONS 06/17/2011 ETELVINA LEONARD APRN V68.1 ISSUE OF REPEAT PRESCRIPTIONS 06/17/2011 AISHA HARRIS ETELVINA L V68.1 ISSUE OF REPEAT PRESCRIPTIONS 06/17/2011 [employer] ROOM OPERATORHAMMAD BowserA L V68.1 ISSUE OF REPEAT PRESCRIPTIONS 06/17/2011 SALGUERO DOTEREA K V68.1 ISSUE OF REPEAT PRESCRIPTIONS 06/17/2011 SALGUERO DOTEREA K V68.1 ISSUE OF REPEAT PRESCRIPTIONS 06/17/2011 [employer] ROOM OPERATORANDREZETELVINA L V68.1 ISSUE OF REPEAT PRESCRIPTIONS 06/17/2011 [employer] ROOM OPERATORANDREZETELVINA L V68.1 ISSUE OF REPEAT PRESCRIPTIONS 06/17/2011 [employer] ROOM OPERATOR, ETELVINA L V68.1 ISSUE OF REPEAT PRESCRIPTIONS 06/17/2011 [employer] ROOM OPERATORSARAETELVINA L V68.1 ISSUE OF REPEAT PRESCRIPTIONS 06/17/2011 [employer] ROOM OPERATOR, ETELVINA L V68.1 ISSUE OF REPEAT PRESCRIPTIONS 06/17/2011 [employer] ROOM OPERATORANDREZ BowserNYA L V68.1 ISSUE OF REPEAT PRESCRIPTIONS 06/17/2011 HAMMAD LEONARD APRNA L V68.1 ISSUE OF REPEAT PRESCRIPTIONS 06/17/2011 LADONNA SALGUERO DO K V68.1 ISSUE OF REPEAT PRESCRIPTIONS 06/17/2011 LADONNA SALGUERO DO K V68.1 ISSUE OF REPEAT PRESCRIPTIONS 06/17/2011 HUGOL HAMMAD HARRISA L V68.1 ISSUE OF REPEAT PRESCRIPTIONS 06/17/2011 SALGUERO DOTEREA K V68.1 ISSUE OF REPEAT PRESCRIPTIONS 06/17/2011 HUGOL ANDREZ HARRISNYA L V68.1 ISSUE OF REPEAT PRESCRIPTIONS 07/10/2011 Ot 250.00 07/10/2011 Ot 272.4 07/10/2011 Ot 278.03 07/10/2011 Ot 300.4 07/10/2011 Ot 305.1 07/10/2011 Ot 414.01 07/10/2011 Ot 424.1 07/10/2011 Ot 426.3 07/10/2011 Ot 491.21 07/10/2011 Ot V45.82 07/10/2011 Ot V85.41 07/14/2011 Ot 250.00 DIAB MELVA WO COMPL, TYPE II OR UNSPEC TY 07/14/2011 Ot 414.01 CORONARY ATHEROSCLEROSIS OF TELIDA CORON 07/14/2011 Ot 496 CHR AIRWAY OBSTRUCT NEC 07/14/2011 Ot 599.0 URIN TRACT INFECTION NOS 07/14/2011 Ot 724.5 BACKACHE NOS 07/14/2011 Ot 787.01 NAUSEA WITH VOMITING 07/31/2011 LAURIE MORA APRN S V04.81 Flu Dx (3 Yrs And Above, Im) 07/31/2011 V04.81 Flu Dx (3 Yrs And Above, Im) 07/31/2011 LAURIE MORA APRN S V04.81 Flu Dx (3 Yrs And Above, Im) 07/31/2011 LAURIE MORA APRN S V04.81 Flu Dx (3 Yrs And Above, Im) 07/31/2011 ROMELIA FISCHER MD V04.81 Flu Dx (3 Yrs And Above, Im) 07/31/2011 BYRON BOSS MD V04.81 Flu Dx (3 Yrs And Above, Im) 07/31/2011 V04.81 Flu Dx (3 Yrs And Above, Im) 07/31/2011 V04.81 Flu Dx (3 Yrs And Above, Im) 07/31/2011 V04.81 Flu Dx (3 Yrs And Above, Im) 07/31/2011 V04.81 Flu Dx (3 Yrs And Above, Im) 07/31/2011 BYRON BOSS MD V04.81 Flu Dx (3 Yrs And Above, Im) 07/31/2011 BYRON BOSS MD V04.81 Flu Dx (3 Yrs And Above, Im) 07/31/2011 LADONNA SALGUERO DO V04.81 Flu Dx (3 Yrs And Above, Im) 07/31/2011 BYRON BOSS MD V04.81 Flu Dx (3 Yrs And Above, Im) 07/31/2011 LADONNA SALGUERO DO V04.81 Flu Dx (3 Yrs And Above, Im) 07/31/2011 BYRON BOSS MD V04.81 Flu Dx (3 Yrs And Above, Im) 07/31/2011 BYRON BOSS MD V04.81 Flu Dx (3 Yrs And Above, Im) 07/31/2011 LADONNA SALGUERO DO V04.81 Flu Dx (3 Yrs And Above, Im) 07/31/2011 LADONNA SALGUERO DO V04.81 Flu Dx (3 Yrs And Above, Im) 07/31/2011 SALGUERO DO, LADONNA K V04.81 Flu Dx (3 Yrs And Above, Im) 07/31/2011 SALGUERO DO, LADONNA K V04.81 Flu Dx (3 Yrs And Above, Im) 07/31/2011 [employer] ROOM OPERATOR, ETELVINA L V04.81 Flu Dx (3 Yrs And Above, Im) 07/31/2011 [employer] ROOM OPERATOR, ETELVINA L V04.81 Flu Dx (3 Yrs And Above, Im) 07/31/2011 [employer] ROOM OPERATOR, ETELVINA L V04.81 Flu Dx (3 Yrs And Above, Im) 07/31/2011 SALGUERO DO, LADONNA K V04.81 Flu Dx (3 Yrs And Above, Im) 07/31/2011 SALGUERO DO, LADONNA K V04.81 Flu Dx (3 Yrs And Above, Im) 07/31/2011 [employer] ROOM OPERATOR, ETELVINA L V04.81 Flu Dx (3 Yrs And Above, Im) 07/31/2011 [employer] CONTR[employer] ROOM OPERATOR, ETELVINA L V04.81 Flu Dx (3 Yrs And Above, Im) 07/31/2011 [employer] CONTR[employer] ROOM OPERATOR, ETELVINA L V04.81 Flu Dx (3 Yrs And Above, Im) 07/31/2011 [employer] CONTR[employer] ROOM OPERATOR, ETELVINA L V04.81 Flu Dx (3 Yrs And Above, Im) 07/31/2011 [employer] CONTR[employer] ROOM OPERATOR, ETELVINA L V04.81 Flu Dx (3 Yrs And Above, Im) 07/31/2011 [employer] CONTR[employer] ROOM OPERATOR, ETELVINA L V04.81 Flu Dx (3 Yrs And Above, Im) 07/31/2011 [employer] ROOM OPERATOR, ETELVINA L V04.81 Flu Dx (3 Yrs And Above, Im) 07/31/2011 SALGUERO DO, LADONNA K V04.81 Flu Dx (3 Yrs And Above, Im) 07/31/2011 SALGUERO DO, LADONNA K V04.81 Flu Dx (3 Yrs And Above, Im) 07/31/2011 [employer] ROOM OPERATOR, ETELVINA L V04.81 Flu Dx (3 Yrs And Above, Im) 07/31/2011 SALGUERO DO, LADONNA K V04.81 Flu Dx (3 Yrs And Above, Im) 07/31/2011 [employer] ROOM OPERATOR, ETELVINA L V04.81 Flu Dx (3 Yrs And Above, Im) 08/27/2011 [employer] ROOM OPERATOR, LAURIE S 780.50 SLEEP DISTURBANCE, UNSPECIFIED 08/27/2011 780.50 Sleep Disturbance, Unspecified 08/27/2011 [employer] ROOM OPERATOR, LAURIE S 780.50 Sleep Disturbance, Unspecified 08/27/2011 [employer] ROOM OPERATOR, LAURIE S 780.50 Sleep Disturbance, Unspecified 08/27/2011 ROMELIA FISCHER MD 780.50 Sleep Disturbance, Unspecified 08/27/2011 BYRON BOSS MD 780.50 Sleep Disturbance, Unspecified 08/27/2011 780.50 Sleep Disturbance, Unspecified 08/27/2011 780.50 Sleep Disturbance, Unspecified 08/27/2011 780.50 Sleep Disturbance, Unspecified 08/27/2011 780.50 Sleep Disturbance, Unspecified 08/27/2011 BYRON BOSS MD 780.50 Sleep Disturbance, Unspecified 08/27/2011 BYRON BOSS MD 780.50 Sleep Disturbance, Unspecified 08/27/2011 SALGUERO DO, LADONNA K 780.50 Sleep Disturbance, Unspecified 08/27/2011 BYRON BOSS MD 780.50 Sleep Disturbance, Unspecified 08/27/2011 SALGUERO DO, LADONNA K 780.50 Sleep Disturbance, Unspecified 08/27/2011 BYRON BOSS MD 780.50 Sleep Disturbance, Unspecified 08/27/2011 BYRON BOSS MD 780.50 Sleep Disturbance, Unspecified 08/27/2011 SALGUERO DO, LADONNA K 780.50 Sleep Disturbance, Unspecified 08/27/2011 SALGUERO DO, LADONNA K 780.50 Sleep Disturbance, Unspecified 08/27/2011 SALGUERO DO, LADONNA K 780.50 Sleep Disturbance, Unspecified 08/27/2011 SALGUERO DO, LADONNA K 780.50 Sleep Disturbance, Unspecified 08/27/2011 [employer] ROOM OPERATOR, ETELVINA L 780.50 Sleep Disturbance, Unspecified 08/27/2011 [employer] ROOM OPERATOR, ETELVINA L 780.50 Sleep Disturbance, Unspecified 08/27/2011 [employer] ROOM OPERATOR, ETELVINA L 780.50 Sleep Disturbance, Unspecified 08/27/2011 SALGUERO DO, LADONNA K 780.50 Sleep Disturbance, Unspecified 08/27/2011 SALGUERO DO, LADONNA K 780.50 Sleep Disturbance, Unspecified 08/27/2011 [employer] ROOM OPERATOR, ETELVINA L 780.50 Sleep Disturbance, Unspecified 08/27/2011 [employer] ROOM OPERATOR, ETELVINA L 780.50 Sleep Disturbance, Unspecified 08/27/2011 [employer] ROOM OPERATOR, ETELVINA L 780.50 Sleep Disturbance, Unspecified 08/27/2011 [employer] ROOM OPERATOR, ETELVINA L 780.50 Sleep Disturbance, Unspecified 08/27/2011 [employer] ROOM OPERATOR, ETELVINA L 780.50 Sleep Disturbance, Unspecified 08/27/2011 [employer] ROOM OPERATOR, ETELVINA L 780.50 Sleep Disturbance, Unspecified 08/27/2011 [employer] ROOM OPERATOR, ETELVINA L 780.50 Sleep Disturbance, Unspecified 08/27/2011 SALGUERO DO, LADONNA K 780.50 Sleep Disturbance, Unspecified 08/27/2011 SALGUERO DO, LADONNA K 780.50 Sleep Disturbance, Unspecified 08/27/2011 [employer] ROOM OPERATOR, ETELVINA L 780.50 Sleep Disturbance, Unspecified 08/27/2011 SALGUERO DO, LADONNA K 780.50 Sleep Disturbance, Unspecified 08/27/2011 [employer] ROOM OPERATOR, ETELVINA L 780.50 Sleep Disturbance, Unspecified 09/26/2011 [employer]OM OPERATOR, LAURIE S 788.41 URINARY FREQUENCY 09/26/2011 [employer]OM OPERATOR, LAURIE S 788.63 URINARY URGENCY 09/26/2011 788.41 Urinary Frequency 09/26/2011 788.63 Urinary Urgency 09/26/2011 [employer] ROOM OPERATOR, LAURIE S 788.41 Urinary Frequency 09/26/2011 [employer] ROOM OPERATOR, LAURIE S 788.63 Urinary Urgency 09/26/2011 [employer] ROOM OPERATOR, LAURIE S 788.41 Urinary Frequency 09/26/2011 [employer] ROOM OPERATOR, LAURIE S 788.63 Urinary Urgency 09/26/2011 ROMELIA FISCHER MD 788.41 Urinary Frequency 09/26/2011 ROMELIA FISCHER MD 788.63 Urinary Urgency 09/26/2011 BYRON BOSS MD 788.41 Urinary Frequency 09/26/2011 BYRON BOSS MD 788.63 Urinary Urgency 09/26/2011 788.41 Urinary Frequency 09/26/2011 788.63 Urinary Urgency 09/26/2011 788.41 Urinary Frequency 09/26/2011 788.63 Urinary Urgency 09/26/2011 788.41 Urinary Frequency 09/26/2011 788.63 Urinary Urgency 09/26/2011 788.41 Urinary Frequency 09/26/2011 788.63 Urinary Urgency 09/26/2011 BYRON BOSS MD 788.41 Urinary Frequency 09/26/2011 BYRON BOSS MD 788.63 Urinary Urgency 09/26/2011 BYRON BOSS MD 788.41 Urinary Frequency 09/26/2011 BYRON BOSS MD 788.63 Urinary Urgency 09/26/2011 SALGUERO DO, LADONNA K 788.41 Urinary Frequency 09/26/2011 SALGUERO DO, LADONNA K 788.63 Urinary Urgency 09/26/2011 BYRON BOSS MD 788.41 Urinary Frequency 09/26/2011 BYRON BOSS MD 788.63 Urinary Urgency 09/26/2011 SALGUERO DO, LADONNA K 788.41 Urinary Frequency 09/26/2011 SALGUERO DO, LADONNA K 788.63 Urinary Urgency 09/26/2011 BYRON BOSS MD 788.41 Urinary Frequency 09/26/2011 BYRON BOSS MD 788.63 Urinary Urgency 09/26/2011 BYRON BOSS MD 788.41 Urinary Frequency 09/26/2011 BYRON BOSS MD 788.63 Urinary Urgency 09/26/2011 SALGUERO DO, LADONNA K 788.41 Urinary Frequency 09/26/2011 SALGUERO DO, LADONNA K 788.63 Urinary Urgency 09/26/2011 SALGUERO DO, LADONNA K 788.41 Urinary Frequency 09/26/2011 SALGUERO DO, LADONNA K 788.63 Urinary Urgency 09/26/2011 SALGUERO DO, LADONNA K 788.41 Urinary Frequency 09/26/2011 SALGUERO DO, LADONNA K 788.63 Urinary Urgency 09/26/2011 SALGUERO DO, LADONNA K 788.41 Urinary Frequency 09/26/2011 SALGUERO DO, LADONNA K 788.63 Urinary Urgency 09/26/2011 [employer] ROOM OPERATOR, ETELVINA L 788.41 Urinary Frequency 09/26/2011 [employer] ROOM OPERATOR, ETELVINA L 788.63 Urinary Urgency 09/26/2011 [employer] ROOM OPERATOR, ETELVINA L 788.41 Urinary Frequency 09/26/2011 [employer] ROOM OPERATOR, ETELVINA L 788.63 Urinary Urgency 09/26/2011 [employer] ROOM OPERATOR, ETELVINA L 788.41 Urinary Frequency 09/26/2011 [employer] ROOM OPERATOR, ETELVINA L 788.63 Urinary Urgency 09/26/2011 SALGUERO DO, LADONNA K 788.41 Urinary Frequency 09/26/2011 SALGUERO DO, LADONNA K 788.63 Urinary Urgency 09/26/2011 SALGUERO DO, LADONNA K 788.41 Urinary Frequency 09/26/2011 SALGUERO DO, LADONNA K 788.63 Urinary Urgency 09/26/2011 [employer] ROOM OPERATOR, ETELVINA L 788.41 Urinary Frequency 09/26/2011 [employer] ROOM OPERATOR, ETELVINA L 788.63 Urinary Urgency 09/26/2011 [employer] ROOM OPERATOR, ETELVINA L 788.41 Urinary Frequency 09/26/2011 [employer] ROOM OPERATOR, ETELVINA L 788.63 Urinary Urgency 09/26/2011 [employer] ROOM OPERATOR, ETELVINA L 788.41 Urinary Frequency 09/26/2011 [employer] ROOM OPERATOR, ETELVINA L 788.63 Urinary Urgency 09/26/2011 [employer] ROOM OPERATOR, ETELVINA L 788.41 Urinary Frequency 09/26/2011 [employer] ROOM OPERATOR, ETELVINA L 788.63 Urinary Urgency 09/26/2011 [employer] ROOM OPERATOR, ETELVINA L 788.41 Urinary Frequency 09/26/2011 [employer] CONTR[employer] ROOM OPERATOR, ETELVINA L 788.63 Urinary Urgency 09/26/2011 [employer] ROOM OPERATOR, ETELVINA L 788.41 Urinary Frequency 09/26/2011 [employer] ROOM OPERATOR, ETELVINA L 788.63 Urinary Urgency 09/26/2011 [employer] ROOM OPERATOR, ETELVINA L 788.41 Urinary Frequency 09/26/2011 [employer] ROOM OPERATOR, ETELVINA L 788.63 Urinary Urgency 09/26/2011 SALGUERO DO, LADONNA K 788.41 Urinary Frequency 09/26/2011 SALGUERO DO, LADONNA K 788.63 Urinary Urgency 09/26/2011 SALGUERO DO, LADONNA K 788.41 Urinary Frequency 09/26/2011 SALGUERO DO, LADONNA K 788.63 Urinary Urgency 09/26/2011 [employer] ROOM OPERATOR, ETELVINA L 788.41 Urinary Frequency 09/26/2011 [employer] ROOM OPERATOR, ETELVINA L 788.63 Urinary Urgency 09/26/2011 SALGUERO DO, LADONNA K 788.41 Urinary Frequency 09/26/2011 SALGUERO DO, LADONNA K 788.63 Urinary Urgency 09/26/2011 [employer] ROOM OPERATOR, ETELVINA L 788.41 Urinary Frequency 09/26/2011 [employer] ROOM OPERATOR, ETELVINA L 788.63 Urinary Urgency 10/18/2011 MORGAN HARRIS LAURIE S V65.42 COUNSELING - SMOKING CESSATION 10/18/2011 V65.42 Counseling - Smoking Cessation 10/18/2011 PALOMA MORA APRNNDA S V65.42 Counseling - Smoking Cessation 10/18/2011 PALOMA MORA APRNNDA S V65.42 Counseling - Smoking Cessation 10/18/2011 ROMELIA FISCHER MD V65.42 Counseling - Smoking Cessation 10/18/2011 BYRON BOSS MD V65.42 Counseling - Smoking Cessation 10/18/2011 V65.42 Counseling - Smoking Cessation 10/18/2011 V65.42 Counseling - Smoking Cessation 10/18/2011 V65.42 Counseling - Smoking Cessation 10/18/2011 V65.42 Counseling - Smoking Cessation 10/18/2011 BYRON BOSS MD V65.42 Counseling - Smoking Cessation 10/18/2011 BYRON BOSS MD V65.42 Counseling - Smoking Cessation 10/18/2011 SALGUERO DO LADONNA K V65.42 Counseling - Smoking Cessation 10/18/2011 BYRON BOSS MD V65.42 Counseling - Smoking Cessation 10/18/2011 SALGUERO DO LADONNA K V65.42 Counseling - Smoking Cessation 10/18/2011 BYRON BOSS MD V65.42 Counseling - Smoking Cessation 10/18/2011 BYRON BOSS MD V65.42 Counseling - Smoking Cessation 10/18/2011 SALGUERO DO LADONNA K V65.42 Counseling - Smoking Cessation 10/18/2011 SALGUERO DO, LADONNA K V65.42 Counseling - Smoking Cessation 10/18/2011 SALGUERO DO LADONNA K V65.42 Counseling - Smoking Cessation 10/18/2011 SALGUERO DO LADONNA K V65.42 Counseling - Smoking Cessation 10/18/2011 SARA LEONARD APRNWNYA L V65.42 Counseling - Smoking Cessation 10/18/2011 ANDREZ LEONARD APRNNYA L V65.42 Counseling - Smoking Cessation 10/18/2011 SARA LEONARD APRNWNYA L V65.42 Counseling - Smoking Cessation 10/18/2011 NOEMY DO LADONNA K V65.42 Counseling - Smoking Cessation 10/18/2011 SALGUERO DO LADONNA K V65.42 Counseling - Smoking Cessation 10/18/2011 SARA LEONARD APRNWNYA L V65.42 Counseling - Smoking Cessation 10/18/2011 SARA LEONARD APRNWNYA L V65.42 Counseling - Smoking Cessation 10/18/2011 SARA LEONARD APRNWNYA L V65.42 Counseling - Smoking Cessation 10/18/2011 SARA LEONARD APRNWNYA L V65.42 Counseling - Smoking Cessation 10/18/2011 SARA LEONARD APRNWNYA L V65.42 Counseling - Smoking Cessation 10/18/2011 SARA LEONARD APRNWNYA L V65.42 Counseling - Smoking Cessation 10/18/2011 SARA LEONARD APRNWNYA L V65.42 Counseling - Smoking Cessation 10/18/2011 NOEMY PRAKASH LADONNA K V65.42 Counseling - Smoking Cessation 10/18/2011 ONEMY PRAKASH LADONNA K V65.42 Counseling - Smoking Cessation 10/18/2011 SARA LEONARD APRNWNYA L V65.42 Counseling - Smoking Cessation 10/18/2011 NOEMY PRAKASH LADONNA K V65.42 Counseling - Smoking Cessation 10/18/2011 AISHA HARRIS ETELVINA L V65.42 Counseling - Smoking Cessation 10/19/2011 Ot 466.0 ACUTE BRONCHITIS 10/19/2011 Ot 786.05 SHORTNESS OF BREATH 10/24/2011 Ot 305.1 TOBACCO USE DISORDER 10/24/2011 Ot 466.0 ACUTE BRONCHITIS 10/24/2011 Ot 786.2 COUGH 11/11/2011 Ot 250.00 DIAB MELVA WO COMPL, TYPE II OR UNSPEC TY 11/11/2011 Ot 272.4 HYPERLIPIDEMIA NEC/NOS 11/11/2011 Ot 278.00 OBESITY, NOS 11/11/2011 Ot 300.4 DYSTHYMIC DISORDER 11/11/2011 Ot 305.1 TOBACCO USE DISORDER 11/11/2011 Ot 338.29 OTHER CHRONIC PAIN 11/11/2011 Ot 414.01 CORONARY ATHEROSCLEROSIS OF TELIDA CORON 11/11/2011 Ot 424.1 AORTIC VALVE DISORDER 11/11/2011 Ot 426.3 LEFT BB BLOCK NEC 11/11/2011 Ot 496 CHR AIRWAY OBSTRUCT NEC 11/11/2011 Ot 530.81 ESOPHAGEAL REFLUX 11/11/2011 Ot 786.59 CHEST PAIN NEC 11/11/2011 Ot V45.82 PERCUTANEOUS TRANSLUM CORON ANGIOPLASTY 11/11/2011 Ot V46.2 SUPPLEMENTAL OXYGEN 11/11/2011 Ot V58.63 LONG-TERM( CURRENT)USE OF ANTIPLATELET/AN 11/11/2011 Ot V58.69 OTH MED,LT, CURRENT USE 11/11/2011 Ot V85.41 BODY MASS INDEX 40.0-44.9, ADULT 12/04/2011 LAURIE MORA APRN S 461.9 SINUSITIS ACUTE 12/04/2011 461.9 Sinusitis Acute 12/04/2011 LAURIE MORA APRN S 461.9 Sinusitis Acute 12/04/2011 LAURIE MORA APRN 461.9 Sinusitis Acute 12/04/2011 AMADO OLVERA, ROMELIA 461.9 Sinusitis Acute 12/04/2011 BYRON BOSS MD 461.9 Sinusitis Acute 12/04/2011 461.9 Sinusitis Acute 12/04/2011 461.9 Sinusitis Acute 12/04/2011 461.9 Sinusitis Acute 12/04/2011 461.9 Sinusitis Acute 12/04/2011 BYRON BOSS MD 461.9 Sinusitis Acute 12/04/2011 BYRON BOSS MD 461.9 Sinusitis Acute 12/04/2011 LADONNA SALGUERO DO 461.9 Sinusitis Acute 12/04/2011 BYRON BOSS MD 461.9 Sinusitis Acute 12/04/2011 LADONNA SALGUERO DO 461.9 Sinusitis Acute 12/04/2011 KARYN MD, BYRON M 461.9 Sinusitis Acute 12/04/2011 KARYN OLVERA, BYRON M 461.9 Sinusitis Acute 12/04/2011 SALGUERO DO, LADONNA K 461.9 Sinusitis Acute 12/04/2011 SALGUERO DO, LADONNA K 461.9 Sinusitis Acute 12/04/2011 SALGUERO DO, LADONNA K 461.9 Sinusitis Acute 12/04/2011 SALGUERO DO, LADONNA K 461.9 Sinusitis Acute 12/04/2011 [employer] ROOM OPERATOR, ETELVINA L 461.9 Sinusitis Acute 12/04/2011 [employer] ROOM OPERATOR, ETELVINA L 461.9 Sinusitis Acute 12/04/2011 [employer] ROOM OPERATOR, ETELVINA L 461.9 Sinusitis Acute 12/04/2011 SALGUERO DO, LADONNA K 461.9 Sinusitis Acute 12/04/2011 SALGUERO DO, LADONNA K 461.9 Sinusitis Acute 12/04/2011 [employer] ROOM OPERATOR, ETELVINA L 461.9 Sinusitis Acute 12/04/2011 [employer] CONTR[employer] ROOM OPERATOR, ETELVINA L 461.9 Sinusitis Acute 12/04/2011 [employer] ROOM OPERATOR, ETELVINA L 461.9 Sinusitis Acute 12/04/2011 [employer] CONTR[employer] ROOM OPERATOR, ETELVINA L 461.9 Sinusitis Acute 12/04/2011 [employer] CONTR[employer] ROOM OPERATOR, ETELVINA L 461.9 Sinusitis Acute 12/04/2011 [employer] CONTR[employer] ROOM OPERATOR, ETELVINA L 461.9 Sinusitis Acute 12/04/2011 [employer] CONTR[employer] ROOM OPERATOR, ETELVINA L 461.9 Sinusitis Acute 12/04/2011 SALGUERO DO, LADONNA K 461.9 Sinusitis Acute 12/04/2011 SALGUERO DO, LADONNA K 461.9 Sinusitis Acute 12/04/2011 [employer] ROOM OPERATOR, ETELVINA L 461.9 Sinusitis Acute 12/04/2011 SALGUERO DO, LADONNA K 461.9 Sinusitis Acute 12/04/2011 [employer] ROOM OPERATOR, ETELVINA L 461.9 Sinusitis Acute 12/19/2011 [employer] ROOM OPERATOR, LAURIE S 486 PNEUMONIA UNSPECIFIED 12/19/2011 [employer] ROOM OPERATOR, LAURIE S 786.2 COUGH 12/19/2011 486 Pneumonia Unspecified 12/19/2011 786.2 Cough 12/19/2011 [employer] ROOM OPERATOR, LAURIE S 486 Pneumonia Unspecified 12/19/2011 [employer] ROOM OPERATOR, LAURIE S 786.2 Cough 12/19/2011 [employer] CONTR[employer] ROOM OPERATOR, LAURIE S 486 Pneumonia Unspecified 12/19/2011 [employer] ROOM OPERATOR, LAURIE S 786.2 Cough 12/19/2011 ROMELIA FISCHER MD 486 Pneumonia Unspecified 12/19/2011 ROMELIA FISCHER MD 786.2 Cough 12/19/2011 BYRON BOSS MD 486 Pneumonia Unspecified 12/19/2011 BYRON BOSS MD 786.2 Cough 12/19/2011 486 Pneumonia Unspecified 12/19/2011 786.2 Cough 12/19/2011 486 Pneumonia Unspecified 12/19/2011 786.2 Cough 12/19/2011 486 Pneumonia Unspecified 12/19/2011 786.2 Cough 12/19/2011 486 Pneumonia Unspecified 12/19/2011 786.2 Cough 12/19/2011 BYRON BOSS MD 486 Pneumonia Unspecified 12/19/2011 BYRON BOSS MD 786.2 Cough 12/19/2011 BYRON BOSS MD 486 Pneumonia Unspecified 12/19/2011 BYRON BOSS MD 786.2 Cough 12/19/2011 SALGUERO DO, LADONNA K 486 Pneumonia Unspecified 12/19/2011 SALGUERO DO, LADONNA K 786.2 Cough 12/19/2011 BYRON BOSS MD 486 Pneumonia Unspecified 12/19/2011 BYRON BOSS MD 786.2 Cough 12/19/2011 SALGUERO DO, LADONNA K 486 Pneumonia Unspecified 12/19/2011 SALGUERO DO, LADONNA K 786.2 Cough 12/19/2011 BYRON BOSS MD M 486 Pneumonia Unspecified 12/19/2011 BYRON BOSS MD 786.2 Cough 12/19/2011 BYRON BOSS MD M 486 Pneumonia Unspecified 12/19/2011 BYRON BOSS MD 786.2 Cough 12/19/2011 SALGUERO DO, LADONNA K 486 Pneumonia Unspecified 12/19/2011 SALGUERO DO, LADONNA K 786.2 Cough 12/19/2011 SALGUERO DO, LADONNA K 486 Pneumonia Unspecified 12/19/2011 SALGUERO DO, LADONNA K 786.2 Cough 12/19/2011 SALGUERO DO, LADONNA K 486 Pneumonia Unspecified 12/19/2011 SALGUERO DO, LADONNA K 786.2 Cough 12/19/2011 SALGUERO DO, LADONNA K 486 Pneumonia Unspecified 12/19/2011 SALGUERO DO, LADONNA K 786.2 Cough 12/19/2011 [employer] ROOM OPERATOR, ETELVINA L 486 Pneumonia Unspecified 12/19/2011 [employer] CONTR[employer] ROOM OPERATOR, ETELVINA L 786.2 Cough 12/19/2011 [employer] CONTR[employer] ROOM OPERATOR, ETELVINA L 486 Pneumonia Unspecified 12/19/2011 [employer] CONTR[employer] ROOM OPERATOR, ETELVINA L 786.2 Cough 12/19/2011 [employer] CONTR[employer] ROOM OPERATOR, ETELVINA L 486 Pneumonia Unspecified 12/19/2011 [employer] CONTR[employer] ROOM OPERATOR, ETELVINA L 786.2 Cough 12/19/2011 SALGUERO DO, LADONNA K 486 Pneumonia Unspecified 12/19/2011 SALGUERO DO, LADONNA K 786.2 Cough 12/19/2011 SALGUERO DO, LADONNA K 486 Pneumonia Unspecified 12/19/2011 SALGUERO DO, LADONNA K 786.2 Cough 12/19/2011 [employer] CONTR[employer] ROOM OPERATOR, ETELVINA L 486 Pneumonia Unspecified 12/19/2011 [employer] CONTR[employer] ROOM OPERATOR, ETELVINA L 786.2 Cough 12/19/2011 [employer] CONTR[employer] ROOM OPERATOR, ETELVINA L 486 Pneumonia Unspecified 12/19/2011 [employer] CONTR[employer] ROOM OPERATOR, ETELVINA L 786.2 Cough 12/19/2011 [employer] CONTR[employer] ROOM OPERATOR, ETELVINA L 486 Pneumonia Unspecified 12/19/2011 [employer] CONTR[employer] ROOM OPERATOR, ETELVINA L 786.2 Cough 12/19/2011 [employer] CONTR[employer] ROOM OPERATOR, ETELVINA L 486 Pneumonia Unspecified 12/19/2011 [employer] CONTR[employer] ROOM OPERATOR, ETELVINA L 786.2 Cough 12/19/2011 [employer] CONTR[employer] ROOM OPERATOR, ETELVINA L 486 Pneumonia Unspecified 12/19/2011 [employer] CONTR[employer] ROOM OPERATOR, ETELVINA L 786.2 Cough 12/19/2011 [employer] CONTR[employer] ROOM OPERATOR, ETELVINA L 486 Pneumonia Unspecified 12/19/2011 [employer] CONTR[employer] ROOM OPERATOR, ETELVINA L 786.2 Cough 12/19/2011 [employer] CONTR[employer] ROOM OPERATOR, ETELVINA L 486 Pneumonia Unspecified 12/19/2011 [employer] CONTR[employer] ROOM OPERATOR, ETELVINA L 786.2 Cough 12/19/2011 SALGUERO DO, LADONNA K 486 Pneumonia Unspecified 12/19/2011 SALGUERO DO, LADONNA K 786.2 Cough 12/19/2011 SALGUERO DO, LADONNA K 486 Pneumonia Unspecified 12/19/2011 SALGUERO DO, LADONNA K 786.2 Cough 12/19/2011 [employer] CONTR[employer] ROOM OPERATOR, ETELVINA L 486 Pneumonia Unspecified 12/19/2011 [employer] CONTR[employer] ROOM OPERATOR, ETELVINA L 786.2 Cough 12/19/2011 SALGUERO DO, LADONNA K 486 Pneumonia Unspecified 12/19/2011 SALGUERO DO, LADONNA K 786.2 Cough 12/19/2011 [employer] CONTR[employer] ROOM OPERATOR, ETELVINA L 486 Pneumonia Unspecified 12/19/2011 [employer] CONTR[employer] ROOM OPERATOR, ETELVINA L 786.2 Cough 01/06/2012 MORGAN HARRIS LAURIE S 491.9 BRONCHITIS, CHRONIC UNSPEC 01/06/2012 PALOMA MORA APRNNDA S 780.79 MALAISE AND FATIGUE 01/06/2012 491.9 Bronchitis, Chronic Unspec 01/06/2012 780.79 Malaise And Fatigue 01/06/2012 MORGAN [employer] ROOM OPERATOR, LAURIE S 491.9 Bronchitis, Chronic Unspec 01/06/2012 MORGAN [employer] CONTR[employer] ROOM OPERATOR, LAURIE S 780.79 Malaise And Fatigue 01/06/2012 MORGAN [employer] CONTR[employer] ROOM OPERATOR, LAURIE S 491.9 Bronchitis, Chronic Unspec 01/06/2012 MORGAN [employer] CONTR[employer] ROOM OPERATOR, LAURIE S 780.79 Malaise And Fatigue 01/06/2012 ROMELIA FISCHER MD 491.9 Bronchitis, Chronic Unspec 01/06/2012 ROMELIA FISCHER MD 780.79 Malaise And Fatigue 01/06/2012 BYRON BOSS MD 491.9 Bronchitis, Chronic Unspec 01/06/2012 BYRON BOSS MD 780.79 Malaise And Fatigue 01/06/2012 491.9 Bronchitis, Chronic Unspec 01/06/2012 780.79 Malaise And Fatigue 01/06/2012 491.9 Bronchitis, Chronic Unspec 01/06/2012 780.79 Malaise And Fatigue 01/06/2012 491.9 Bronchitis, Chronic Unspec 01/06/2012 780.79 Malaise And Fatigue 01/06/2012 491.9 Bronchitis, Chronic Unspec 01/06/2012 780.79 Malaise And Fatigue 01/06/2012 BYRON BOSS MD 491.9 Bronchitis, Chronic Unspec 01/06/2012 BYRON BOSS MD 780.79 Malaise And Fatigue 01/06/2012 BYRON BOSS MD 491.9 Bronchitis, Chronic Unspec 01/06/2012 BYRON BOSS MD 780.79 Malaise And Fatigue 01/06/2012 SALGUERO DOLADONNA 491.9 Bronchitis, Chronic Unspec 01/06/2012 SALGUERO DO, LADONNA K 780.79 Malaise And Fatigue 01/06/2012 BYRON BOSS MD 491.9 Bronchitis, Chronic Unspec 01/06/2012 BYRON BOSS MD 780.79 Malaise And Fatigue 01/06/2012 SALGUERO DO LADONNA K 491.9 Bronchitis, Chronic Unspec 01/06/2012 SALGUERO DO LADONNA K 780.79 Malaise And Fatigue 01/06/2012 BYRON BOSS MD 491.9 Bronchitis, Chronic Unspec 01/06/2012 BYRON BOSS MD 780.79 Malaise And Fatigue 01/06/2012 BYRON BSOS MD 491.9 Bronchitis, Chronic Unspec 01/06/2012 BYRON BOSS MD 780.79 Malaise And Fatigue 01/06/2012 SALGUERO DO LADONNA K 491.9 Bronchitis, Chronic Unspec 01/06/2012 SALGUERO DO, LADONNA K 780.79 Malaise And Fatigue 01/06/2012 SALGUERO DO LADONNA K 491.9 Bronchitis, Chronic Unspec 01/06/2012 SALGUERO DO, LADONNA K 780.79 Malaise And Fatigue 01/06/2012 SALGUERO DO, LADONNA K 491.9 Bronchitis, Chronic Unspec 01/06/2012 SALGUERO DO, LADONNA K 780.79 Malaise And Fatigue 01/06/2012 SALGUERO DO, LADONNA K 491.9 Bronchitis, Chronic Unspec 01/06/2012 SALGUERO DO, LADONNA K 780.79 Malaise And Fatigue 01/06/2012 [employer] CONTR[employer] ROOM OPERATOR, ETELVINA L 491.9 Bronchitis, Chronic Unspec 01/06/2012 [employer] CONTR[employer] ROOM OPERATOR, ETELVINA L 780.79 Malaise And Fatigue 01/06/2012 [employer] CONTR[employer] ROOM OPERATOR, ETELVINA L 491.9 Bronchitis, Chronic Unspec 01/06/2012 [employer] CONTR[employer] ROOM OPERATOR, ETELVINA L 780.79 Malaise And Fatigue 01/06/2012 [employer] CONTR[employer] ROOM OPERATOR, ETELVINA L 491.9 Bronchitis, Chronic Unspec 01/06/2012 [employer] CONTR[employer] ROOM OPERATOR, ETELVINA L 780.79 Malaise And Fatigue 01/06/2012 SALGUERO DO, LADONNA K 491.9 Bronchitis, Chronic Unspec 01/06/2012 SALGUERO DO, LADONNA K 780.79 Malaise And Fatigue 01/06/2012 SALGUERO DO, LADONNA K 491.9 Bronchitis, Chronic Unspec 01/06/2012 SALGUERO DO, LADONNA K 780.79 Malaise And Fatigue 01/06/2012 [employer] CONTR[employer] ROOM OPERATOR, ETELVINA L 491.9 Bronchitis, Chronic Unspec 01/06/2012 [employer] CONTR[employer] ROOM OPERATOR, ETELVINA L 780.79 Malaise And Fatigue 01/06/2012 [employer] CONTR[employer] ROOM OPERATOR, ETELVINA L 491.9 Bronchitis, Chronic Unspec 01/06/2012 [employer] CONTR[employer] ROOM OPERATOR, ETELVINA L 780.79 Malaise And Fatigue 01/06/2012 [employer] CONTR[employer] ROOM OPERATOR, ETELVINA L 491.9 Bronchitis, Chronic Unspec 01/06/2012 [employer] CONTR[employer] ROOM OPERATOR, ETELVINA L 780.79 Malaise And Fatigue 01/06/2012 [employer] CONTR[employer] ROOM OPERATOR, ETELVINA L 491.9 Bronchitis, Chronic Unspec 01/06/2012 [employer] CONTR[employer] ROOM OPERATOR, ETELVINA L 780.79 Malaise And Fatigue 01/06/2012 [employer] CONTR[employer] ROOM OPERATOR, ETELVINA L 491.9 Bronchitis, Chronic Unspec 01/06/2012 [employer] CONTR[employer] ROOM OPERATOR, ETELVINA L 780.79 Malaise And Fatigue 01/06/2012 [employer] CONTR[employer] ROOM OPERATOR, ETELVINA L 491.9 Bronchitis, Chronic Unspec 01/06/2012 [employer] CONTR[employer] ROOM OPERATOR, ETELVINA L 780.79 Malaise And Fatigue 01/06/2012 [employer] CONTR[employer] ROOM OPERATOR, ETELVINA L 491.9 Bronchitis, Chronic Unspec 01/06/2012 [employer] CONTR[employer] ROOM OPERATOR, ETELVINA L 780.79 Malaise And Fatigue 01/06/2012 SALGUERO DO, LADONNA K 491.9 Bronchitis, Chronic Unspec 01/06/2012 SALGUERO DO, LADONNA K 780.79 Malaise And Fatigue 01/06/2012 SALGUERO DO, LADONNA K 491.9 Bronchitis, Chronic Unspec 01/06/2012 SALGUERO DO, LADONNA K 780.79 Malaise And Fatigue 01/06/2012 [employer] CONTR[employer] ROOM OPERATORETELVINA Bowser L 491.9 Bronchitis, Chronic Unspec 01/06/2012 [employer] CONTR[employer] ROOM OPERATOR ETELVINA L 780.79 Malaise And Fatigue 01/06/2012 SALGUERO DO, LADONNA K 491.9 Bronchitis, Chronic Unspec 01/06/2012 SALGUERO DO, LADONNA K 780.79 Malaise And Fatigue 01/06/2012 [employer] CONTR[employer] ROOM OPERATOR, ETELVINA L 491.9 Bronchitis, Chronic Unspec 01/06/2012 H[employer] CONTR[employer] ROOM OPERATOR ETELVINA L 780.79 Malaise And Fatigue 01/30/2012 Ot 250.00 DIAB MELVA WO COMPL, TYPE II OR UNSPEC TY 01/30/2012 Ot 272.0 PURE HYPERCHOLESTEROLEM 01/30/2012 Ot 272.4 HYPERLIPIDEMIA NEC/NOS 01/30/2012 Ot 276.1 HYPOSMOLALITY 01/30/2012 Ot 276.7 HYPERPOTASSEMIA 01/30/2012 Ot 276.8 HYPOPOTASSEMIA 01/30/2012 Ot 278.00 OBESITY, NOS 01/30/2012 Ot 300.4 DYSTHYMIC DISORDER 01/30/2012 Ot 305.1 TOBACCO USE DISORDER 01/30/2012 Ot 401.9 HYPERTENSION NOS 01/30/2012 Ot 414.01 CORONARY ATHEROSCLEROSIS OF TELIDA CORON 01/30/2012 Ot 424.1 AORTIC VALVE DISORDER 01/30/2012 Ot 426.3 LEFT BB BLOCK NEC 01/30/2012 Ot 472.0 CHRONIC RHINITIS 01/30/2012 Ot 493.20 CHRONIC OBSTRUCTIVE ASTHMA, NOS 01/30/2012 Ot 530.81 ESOPHAGEAL REFLUX 01/30/2012 Ot 593.9 RENAL URETERAL DIS NOS 01/30/2012 Ot 596.51 HYPERTONICITY OF BLADDER 01/30/2012 Ot 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 01/30/2012 Ot 625.6 FEM STRESS INCONTINENCE 01/30/2012 Ot E944.4 ADV EFF DIURETICS NEC 01/30/2012 Ot V45.82 PERCUTANEOUS TRANSLUM CORON ANGIOPLASTY 01/30/2012 Ot V58.63 LONG-TERM( CURRENT)USE OF ANTIPLATELET/AN 01/30/2012 Ot V58.69 OTH MED,LT, CURRENT USE 01/30/2012 Ot V85.36 BODY MASS INDEX 36.0-36.9, ADULT 02/02/2012 Ot 250.00 DIAB MELVA WO COMPL, TYPE II OR UNSPEC TY 02/02/2012 Ot 272.4 HYPERLIPIDEMIA NEC/NOS 02/02/2012 Ot 276.8 HYPOPOTASSEMIA 02/02/2012 Ot 305.1 TOBACCO USE DISORDER 02/02/2012 Ot 414.01 CORONARY ATHEROSCLEROSIS OF TEL[place] CORON 02/02/2012 Ot 458.9 HYPOTENSION NOS 02/02/2012 Ot 493.22 CHRONIC OBSTRUCTIVE ASTHMA, W (ACUTE) EX 02/02/2012 Ot 729.5 PAIN IN LIMB 02/02/2012 Ot 729.81 SWELLING OF LIMB 02/02/2012 Ot 782.3 EDEMA 02/02/2012 Ot 787.20 DYSPHAGIA, UNSPECIFIED 02/02/2012 Ot 790.95 ELEVATED C- REACTIVE PROTEIN (CRP) 02/02/2012 Ot V45.82 PERCUTANEOUS TRANSLUM CORON ANGIOPLASTY 02/02/2012 Ot V45.89 POSTSURGICAL STATES NEC 02/04/2012 LAURIE MORA APRN S 728.88 RHABDOMYOLYSIS 02/04/2012 LAURIE MORA APRN S 995.1 ANGIONEUROTIC EDEMA NOT ELSEWHERE CLASSIFIED 02/04/2012 728.88 Rhabdomyolysis 02/04/2012 995.1 Angioneurotic Edema Not Elsewhere Classified 02/04/2012 LAURIE MORA APRN S 728.88 Rhabdomyolysis 02/04/2012 LAURIE MORA APRN S 995.1 Angioneurotic Edema Not Elsewhere Classified 02/04/2012 LAURIE MORA APRN S 728.88 Rhabdomyolysis 02/04/2012 LAURIE MORA APRN S 995.1 Angioneurotic Edema Not Elsewhere Classified 02/04/2012 ROMELIA FISCHER MD 728.88 Rhabdomyolysis 02/04/2012 ROMELIA FISCHER MD 995.1 Angioneurotic Edema Not Elsewhere Classified 02/04/2012 BYRON BOSS MD 728.88 Rhabdomyolysis 02/04/2012 BYRON BOSS MD 995.1 Angioneurotic Edema Not Elsewhere Classified 02/04/2012 728.88 Rhabdomyolysis 02/04/2012 995.1 Angioneurotic Edema Not Elsewhere Classified 02/04/2012 728.88 Rhabdomyolysis 02/04/2012 995.1 Angioneurotic Edema Not Elsewhere Classified 02/04/2012 728.88 Rhabdomyolysis 02/04/2012 995.1 Angioneurotic Edema Not Elsewhere Classified 02/04/2012 728.88 Rhabdomyolysis 02/04/2012 995.1 Angioneurotic Edema Not Elsewhere Classified 02/04/2012 BYRON BOSS MD 728.88 Rhabdomyolysis 02/04/2012 BYRON BOSS MD 995.1 Angioneurotic Edema Not Elsewhere Classified 02/04/2012 BYRON BOSS MD 728.88 Rhabdomyolysis 02/04/2012 BYRON BOSS MD 995.1 Angioneurotic Edema Not Elsewhere Classified 02/04/2012 LADONNA SALGUERO DO 728.88 Rhabdomyolysis 02/04/2012 LADONNA SALGUERO DO K 995.1 Angioneurotic Edema Not Elsewhere Classified 02/04/2012 BYRON BOSS MD 728.88 Rhabdomyolysis 02/04/2012 BYRON BOSS MD 995.1 Angioneurotic Edema Not Elsewhere Classified 02/04/2012 LADONNA SALGUERO DO 728.88 Rhabdomyolysis 02/04/2012 LADONNA SALGUERO DO K 995.1 Angioneurotic Edema Not Elsewhere Classified 02/04/2012 BYRON BOSS MD 728.88 Rhabdomyolysis 02/04/2012 BYRON BOSS MD 995.1 Angioneurotic Edema Not Elsewhere Classified 02/04/2012 BYRON BOSS MD 728.88 Rhabdomyolysis 02/04/2012 BYRON BOSS MD 995.1 Angioneurotic Edema Not Elsewhere Classified 02/04/2012 SALGUERO DOTEREA K 728.88 Rhabdomyolysis 02/04/2012 SALGUERO DOTEREA K 995.1 Angioneurotic Edema Not Elsewhere Classified 02/04/2012 SALGUERO DO LADONNA K 728.88 Rhabdomyolysis 02/04/2012 SALGUERO DO LADONNA K 995.1 Angioneurotic Edema Not Elsewhere Classified 02/04/2012 SALGUERO DO, LADONNA K 728.88 Rhabdomyolysis 02/04/2012 SALGUERO DO, LADONNA K 995.1 Angioneurotic Edema Not Elsewhere Classified 02/04/2012 SALGUERO DO, LADONNA K 728.88 Rhabdomyolysis 02/04/2012 SALGUERO DO, LADONNA K 995.1 Angioneurotic Edema Not Elsewhere Classified 02/04/2012 [employer]PERATOR, ETELVINA L 728.88 Rhabdomyolysis 02/04/2012 [employer]OM OPERATOR, ETELVINA L 995.1 Angioneurotic Edema Not Elsewhere Classified 02/04/2012 [employer]OM OPERATOR, ETELVINA L 728.88 Rhabdomyolysis 02/04/2012 [employer]OM OPERATOR, ETELVINA L 995.1 Angioneurotic Edema Not Elsewhere Classified 02/04/2012 [employer] ROOM OPERATOR, ETELVINA L 728.88 Rhabdomyolysis 02/04/2012 [employer] ROOM OPERATOR, ETELVINA L 995.1 Angioneurotic Edema Not Elsewhere Classified 02/04/2012 SALGUERO DO, LADONNA K 728.88 Rhabdomyolysis 02/04/2012 SALGUERO DO, LADONNA K 995.1 Angioneurotic Edema Not Elsewhere Classified 02/04/2012 SALGUERO DO, LADONNA K 728.88 Rhabdomyolysis 02/04/2012 SALGUERO DO, LADONNA K 995.1 Angioneurotic Edema Not Elsewhere Classified 02/04/2012 [employer]OM OPERATOR, ETELVINA L 728.88 Rhabdomyolysis 02/04/2012 [employer]OM OPERATOR, ETELVINA L 995.1 Angioneurotic Edema Not Elsewhere Classified 02/04/2012 [employer] ROOM OPERATOR, ETELVINA L 728.88 Rhabdomyolysis 02/04/2012 [employer]OM OPERATOR, ETELVINA L 995.1 Angioneurotic Edema Not Elsewhere Classified 02/04/2012 [employer] ROOM OPERATOR, ETELVINA L 728.88 Rhabdomyolysis 02/04/2012 [employer] ROOM OPERATOR, ETELVINA L 995.1 Angioneurotic Edema Not Elsewhere Classified 02/04/2012 [employer] ROOM OPERATOR, ETELVINA L 728.88 Rhabdomyolysis 02/04/2012 [employer]OM OPERATOR, ETELVINA L 995.1 Angioneurotic Edema Not Elsewhere Classified 02/04/2012 [employer] ROOM OPERATOR, ETELVINA L 728.88 Rhabdomyolysis 02/04/2012 [employer]OM OPERATOR, ETELVINA L 995.1 Angioneurotic Edema Not Elsewhere Classified 02/04/2012 [employer]OM OPERATOR, ETELVINA L 728.88 Rhabdomyolysis 02/04/2012 [employer] OPERATOR, ETELVINA L 995.1 Angioneurotic Edema Not Elsewhere Classified 02/04/2012 [employer] ROOM OPERATOR, ETELVINA L 728.88 Rhabdomyolysis 02/04/2012 [employer] ROOM OPERATOR, ETELVINA L 995.1 Angioneurotic Edema Not Elsewhere Classified 02/04/2012 SALGUERO DO, LADONNA K 728.88 Rhabdomyolysis 02/04/2012 SALGUERO DO, LADONNA K 995.1 Angioneurotic Edema Not Elsewhere Classified 02/04/2012 SALGUERO DO, LADONNA K 728.88 Rhabdomyolysis 02/04/2012 SALGUERO DO, LADONNA K 995.1 Angioneurotic Edema Not Elsewhere Classified 02/04/2012 [employer] ROOM OPERATOR, ETELVINA L 728.88 Rhabdomyolysis 02/04/2012 [employer] ROOM OPERATOR, ETELVINA L 995.1 Angioneurotic Edema Not Elsewhere Classified 02/04/2012 SALGUERO DO, LADONNA K 728.88 Rhabdomyolysis 02/04/2012 SALGUERO DO, LADONNA K 995.1 Angioneurotic Edema Not Elsewhere Classified 02/04/2012 [employer] ROOM OPERATOR, ETELVINA L 728.88 Rhabdomyolysis 02/04/2012 [employer] ROOM OPERATOR, ETELVINA L 995.1 Angioneurotic Edema Not Elsewhere Classified 02/06/2012 MORGAN HARRIS LAURIE S 782.3 EDEMA 02/06/2012 782.3 EDEMA 02/06/2012 MORGAN HARRIS, LAURIE S 782.3 EDEMA 02/06/2012 MORGAN HARRIS LAURIE S 782.3 EDEMA 02/06/2012 AMADO OLVERA, ROMELIA 782.3 EDEMA 02/06/2012 KARYN OLVERA, BYRON Bruner 782.3 EDEMA 02/06/2012 782.3 EDEMA 02/06/2012 782.3 EDEMA 02/06/2012 782.3 EDEMA 02/06/2012 782.3 EDEMA 02/06/2012 KARYN OLVERA, BYRON Bruner 782.3 EDEMA 02/06/2012 KARYN OLVERA, BYRON Bruner 782.3 EDEMA 02/06/2012 SALGUERO DO, LADONNA K 782.3 EDEMA 02/06/2012 KARYN OLVERA, BYRON M 782.3 EDEMA 02/06/2012 SALGUERO DO, LADONNA K 782.3 EDEMA 02/06/2012 KARYN OLVERA, BYRON Bruner 782.3 EDEMA 02/06/2012 KARYN OLVERA, BYRON Bruner 782.3 EDEMA 02/06/2012 SALGUERO DO, LADONNA K 782.3 EDEMA 02/06/2012 SALGUERO DO, LADONNA K 782.3 EDEMA 02/06/2012 SALGUERO DO, LADONNA K 782.3 EDEMA 02/06/2012 SALGUERO DO, LADONNA K 782.3 EDEMA 02/06/2012 [employer] ROOM OPERATOR, ETELVINA L 782.3 EDEMA 02/06/2012 [employer] ROOM OPERATOR, ETELVINA L 782.3 EDEMA 02/06/2012 [employer] ROOM OPERATOR, ETELVINA L 782.3 EDEMA 02/06/2012 SALGUERO DO, LADONNA K 782.3 EDEMA 02/06/2012 SALGUERO DO, LADONNA K 782.3 EDEMA 02/06/2012 [employer] ROOM OPERATOR, ETELVINA L 782.3 EDEMA 02/06/2012 [employer] ROOM OPERATOR, ETELVINA L 782.3 EDEMA 02/06/2012 [employer] ROOM OPERATOR, ETELVINA L 782.3 EDEMA 02/06/2012 [employer] ROOM OPERATOR, ETELVINA L 782.3 EDEMA 02/06/2012 [employer] ROOM OPERATOR, ETELVINA L 782.3 EDEMA 02/06/2012 [employer] ROOM OPERATOR, ETELVINA L 782.3 EDEMA 02/06/2012 [employer] ROOM OPERATOR, ETELVINA L 782.3 EDEMA 02/06/2012 SALGUERO DO, LADONNA K 782.3 EDEMA 02/06/2012 SALGUERO DO, LADONNA K 782.3 EDEMA 02/06/2012 [employer] ROOM OPERATOR, ETELVINA L 782.3 EDEMA 02/06/2012 SALGUERO DO, LADONNA K 782.3 EDEMA 02/06/2012 [employer] ROOM OPERATOR, ETELVINA L 782.3 EDEMA 02/11/2012 M[employer]GAN [employer] ROOM OPERATOR, LAURIE S 079.99 VIRAL SYNDROME 02/11/2012 079.99 Viral Syndrome 02/11/2012 M[employer]GAN [employer] ROOM OPERATOR, LAURIE S 079.99 Viral Syndrome 02/11/2012 MORGAN [employer] ROOM OPERATOR, LAURIE S 079.99 Viral Syndrome 02/11/2012 ROMELIA FISCHER MD 079.99 Viral Syndrome 02/11/2012 BYRON BOSS MD 079.99 Viral Syndrome 02/11/2012 079.99 Viral Syndrome 02/11/2012 079.99 Viral Syndrome 02/11/2012 079.99 Viral Syndrome 02/11/2012 079.99 Viral Syndrome 02/11/2012 BYRON BOSS MD 079.99 Viral Syndrome 02/11/2012 BYRON BOSS MD 079.99 Viral Syndrome 02/11/2012 LADONNA SALGUERO DO K 079.99 Viral Syndrome 02/11/2012 BYRON BOSS MD 079.99 Viral Syndrome 02/11/2012 TERE SALGUERO DOA K 079.99 Viral Syndrome 02/11/2012 BYRON BOSS MD 079.99 Viral Syndrome 02/11/2012 BYRON BOSS MD 079.99 Viral Syndrome 02/11/2012 TERE SALGUERO DOA K 079.99 Viral Syndrome 02/11/2012 TERE SALGUERO DOA K 079.99 Viral Syndrome 02/11/2012 TERE SALGUERO DOA K 079.99 Viral Syndrome 02/11/2012 TERE SALGUERO DOA K 079.99 Viral Syndrome 02/11/2012 [employer] ROOM OPERATOR, ETELVINA L 079.99 Viral Syndrome 02/11/2012 [employer] ROOM OPERATOR, ETELVINA L 079.99 Viral Syndrome 02/11/2012 [employer] ROOM OPERATOR, ETELVINA L 079.99 Viral Syndrome 02/11/2012 NOEMY PRAKASH LADONNA K 079.99 Viral Syndrome 02/11/2012 SALGUERO DO LADONNA K 079.99 Viral Syndrome 02/11/2012 [employer] ROOM OPERATOR, ETELVINA L 079.99 Viral Syndrome 02/11/2012 [employer] ROOM OPERATOR, ETELVINA L 079.99 Viral Syndrome 02/11/2012 [employer] ROOM OPERATOR, ETELVINA L 079.99 Viral Syndrome 02/11/2012 [employer] ROOM OPERATOR, ETELVINA L 079.99 Viral Syndrome 02/11/2012 [employer] ROOM OPERATOR, ETELVINA L 079.99 Viral Syndrome 02/11/2012 [employer] ROOM OPERATOR, ETELVINA L 079.99 Viral Syndrome 02/11/2012 [employer] ROOM OPERATOR, ETELVINA L 079.99 Viral Syndrome 02/11/2012 SALGUERO DO, LADONNA K 079.99 Viral Syndrome 02/11/2012 SALGUEOR DO, LADONNA K 079.99 Viral Syndrome 02/11/2012 [employer] ROOM OPERATOR, ETELVINA L 079.99 Viral Syndrome 02/11/2012 SALGUERO DO, LADONNA K 079.99 Viral Syndrome 02/11/2012 [employer] ROOM OPERATOR, ETELVINA L 079.99 Viral Syndrome 02/17/2012 SUSHANT MORA APRNA S 783.21 WEIGHT LOSS 02/17/2012 783.21 Weight Loss 02/17/2012 SUSHANT MORA APRNA S 783.21 Weight Loss 02/17/2012 SUSHANT MORA APRNA S 783.21 Weight Loss 02/17/2012 AMADO OLVERA, ROMELIA 783.21 Weight Loss 02/17/2012 BYRON BOSS MD 783.21 Weight Loss 02/17/2012 783.21 Weight Loss 02/17/2012 783.21 Weight Loss 02/17/2012 783.21 Weight Loss 02/17/2012 783.21 Weight Loss 02/17/2012 BYRON BOSS MD 783.21 Weight Loss 02/17/2012 BYRON BOSS MD 783.21 Weight Loss 02/17/2012 LADONNA SALGUERO DO K 783.21 Weight Loss 02/17/2012 BYRON BOSS MD 783.21 Weight Loss 02/17/2012 LADONNA SALGUERO DO K 783.21 Weight Loss 02/17/2012 BYRON BOSS MD 783.21 Weight Loss 02/17/2012 BYRON BOSS MD 783.21 Weight Loss 02/17/2012 SALGUERO DOTEREA K 783.21 Weight Loss 02/17/2012 SALGUERO DO, LADONNA K 783.21 Weight Loss 02/17/2012 SALGUERO DO, LADONNA K 783.21 Weight Loss 02/17/2012 SALGUERO DO, LADONNA K 783.21 Weight Loss 02/17/2012 [employer] ROOM OPERATOR, ETELVINA L 783.21 Weight Loss 02/17/2012 [employer] ROOM OPERATOR, ETELVINA L 783.21 Weight Loss 02/17/2012 [employer] ROOM OPERATOR, ETELVINA L 783.21 Weight Loss 02/17/2012 SALGUERO DO, LADONNA K 783.21 Weight Loss 02/17/2012 SALGUERO DO, LADONNA K 783.21 Weight Loss 02/17/2012 [employer] ROOM OPERATOR, ETELVINA L 783.21 Weight Loss 02/17/2012 [employer] ROOM OPERATOR, ETELVINA L 783.21 Weight Loss 02/17/2012 [employer] ROOM OPERATOR, ETELVINA L 783.21 Weight Loss 02/17/2012 [employer] ROOM OPERATOR, ETELVINA L 783.21 Weight Loss 02/17/2012 [employer] ROOM OPERATOR, ETELVINA L 783.21 Weight Loss 02/17/2012 [employer] ROOM OPERATOR, ETELVINA L 783.21 Weight Loss 02/17/2012 [employer] ROOM OPERATOR, ETELVINA L 783.21 Weight Loss 02/17/2012 SALGUERO DO, LADONNA K 783.21 Weight Loss 02/17/2012 SALGUERO DO, LADONNA K 783.21 Weight Loss 02/17/2012 [employer] ROOM OPERATOR, ETELVINA L 783.21 Weight Loss 02/17/2012 SALGUERO DO, LADONNA K 783.21 Weight Loss 02/17/2012 [employer] ROOM OPERATOR, ETELVINA L 783.21 Weight Loss 02/24/2012 MORGAN HARRIS LAURIE S 787.91 DIARRHEA 02/24/2012 787.91 Diarrhea 02/24/2012 MORGAN HARRIS LAURIE S 787.91 Diarrhea 02/24/2012 MORGAN HARRIS LAURIE S 787.91 Diarrhea 02/24/2012 AMADO OLVERA, ROMELIA 787.91 Diarrhea 02/24/2012 KARYN OLVERA, BYRON Bruner 787.91 Diarrhea 02/24/2012 787.91 Diarrhea 02/24/2012 787.91 Diarrhea 02/24/2012 787.91 Diarrhea 02/24/2012 787.91 Diarrhea 02/24/2012 BYRON BOSS MD 787.91 Diarrhea 02/24/2012 BYRON BOSS MD 787.91 Diarrhea 02/24/2012 SALGUERO DO, LADONNA K 787.91 Diarrhea 02/24/2012 BYRON BOSS MD 787.91 Diarrhea 02/24/2012 SALGUERO DO, LADONNA K 787.91 Diarrhea 02/24/2012 BYRON BOSS MD 787.91 Diarrhea 02/24/2012 BYRON BOSS MD 787.91 Diarrhea 02/24/2012 SALGUERO DO, LADONNA K 787.91 Diarrhea 02/24/2012 SALGUERO DO, LADONNA K 787.91 Diarrhea 02/24/2012 SALGUERO DO, LADONNA K 787.91 Diarrhea 02/24/2012 SALGUERO DO, LADONNA K 787.91 Diarrhea 02/24/2012 [employer] ROOM OPERATOR, ETELVINA L 787.91 Diarrhea 02/24/2012 [employer] ROOM OPERATOR, ETELVINA L 787.91 Diarrhea 02/24/2012 [employer] ROOM OPERATOR, ETELVINA L 787.91 Diarrhea 02/24/2012 SALGUERO DO, LADONNA K 787.91 Diarrhea 02/24/2012 SALGUERO DO, LADONNA K 787.91 Diarrhea 02/24/2012 [employer] ROOM OPERATOR, ETELVINA L 787.91 Diarrhea 02/24/2012 [employer] ROOM OPERATOR, ETELVINA L 787.91 Diarrhea 02/24/2012 [employer] ROOM OPERATOR, ETELVINA L 787.91 Diarrhea 02/24/2012 [employer] ROOM OPERATOR, ETELVINA L 787.91 Diarrhea 02/24/2012 [employer] ROOM OPERATOR, ETELVINA L 787.91 Diarrhea 02/24/2012 [employer] ROOM OPERATOR, ETELVINA L 787.91 Diarrhea 02/24/2012 [employer] ROOM OPERATOR, ETELVINA L 787.91 Diarrhea 02/24/2012 SALGUERO DO, LADONNA K 787.91 Diarrhea 02/24/2012 SALGUERO DO, LADONNA K 787.91 Diarrhea 02/24/2012 [employer] ROOM OPERATOR, ETELVINA L 787.91 Diarrhea 02/24/2012 SALGUERO DO, LADONNA K 787.91 Diarrhea 02/24/2012 [employer] ROOM OPERATOR, ETELVINA L 787.91 Diarrhea 04/07/2012 MORGAN [employer] CONTR[employer] ROOM OPERATORLAURIE S 787.20 DYSPHAGIA, UNSPECIFIED 04/07/2012 787.20 Dysphagia, Unspecified 04/07/2012 MORGAN [employer] CONTR[employer] ROOM OPERATORLAURIE S 787.20 Dysphagia, Unspecified 04/07/2012 MORGAN [employer] CONTR[employer] ROOM OPERATORLAURIE S 787.20 Dysphagia, Unspecified 04/07/2012 AMADO OLVERA, ROMELIA 787.20 Dysphagia, Unspecified 04/07/2012 BYRON BOSS MD 787.20 Dysphagia, Unspecified 04/07/2012 787.20 Dysphagia, Unspecified 04/07/2012 787.20 Dysphagia, Unspecified 04/07/2012 787.20 Dysphagia, Unspecified 04/07/2012 787.20 Dysphagia, Unspecified 04/07/2012 BYRON BOSS MD 787.20 Dysphagia, Unspecified 04/07/2012 BYRON BOSS MD 787.20 Dysphagia, Unspecified 04/07/2012 SALGUERO DO, LADONNA K 787.20 Dysphagia, Unspecified 04/07/2012 BYRON BOSS MD 787.20 Dysphagia, Unspecified 04/07/2012 SALGUERO DO, LADONNA K 787.20 Dysphagia, Unspecified 04/07/2012 BYRON BOSS MD 787.20 Dysphagia, Unspecified 04/07/2012 BYRON BOSS MD 787.20 Dysphagia, Unspecified 04/07/2012 SALGUERO DO, LADONNA K 787.20 Dysphagia, Unspecified 04/07/2012 SALGUERO DO, LADONNA K 787.20 Dysphagia, Unspecified 04/07/2012 SALGUERO DO, LADONNA K 787.20 Dysphagia, Unspecified 04/07/2012 SALGUERO DO, LADONNA K 787.20 Dysphagia, Unspecified 04/07/2012 [employer] ROOM OPERATOR, ETELVINA L 787.20 Dysphagia, Unspecified 04/07/2012 [employer] CONTR[employer] ROOM OPERATOR, ETELVINA L 787.20 Dysphagia, Unspecified 04/07/2012 M[employer] CONTR[employer] ROOM OPERATOR, ETELVINA L 787.20 Dysphagia, Unspecified 04/07/2012 SALGUERO DO, LADONNA K 787.20 Dysphagia, Unspecified 04/07/2012 SALGUERO DO, LADONNA K 787.20 Dysphagia, Unspecified 04/07/2012 [employer] ROOM OPERATOR, ETELVINA L 787.20 Dysphagia, Unspecified 04/07/2012 M[employer] CONTR[employer] ROOM OPERATOR, ETELVINA L 787.20 Dysphagia, Unspecified 04/07/2012 M[employer] CONTR[employer] ROOM OPERATOR, ETELVINA L 787.20 Dysphagia, Unspecified 04/07/2012 [employer] CONTR[employer] ROOM OPERATOR, ETELVINA L 787.20 Dysphagia, Unspecified 04/07/2012 [employer] CONTR[employer] ROOM OPERATOR, ETELVINA L 787.20 Dysphagia, Unspecified 04/07/2012 [employer] CONTR[employer] ROOM OPERATOR, ETELVINA L 787.20 Dysphagia, Unspecified 04/07/2012 [employer] CONTR[employer] ROOM OPERATOR, ETELVINA L 787.20 Dysphagia, Unspecified 04/07/2012 SALGUERO DO, LADONNA K 787.20 Dysphagia, Unspecified 04/07/2012 SALGUERO DO, LADONNA K 787.20 Dysphagia, Unspecified 04/07/2012 [employer] CONTR[employer] ROOM OPERATOR, ETELVINA L 787.20 Dysphagia, Unspecified 04/07/2012 SALGUERO DO, LADONNA K 787.20 Dysphagia, Unspecified 04/07/2012 [employer] CONTR[employer] ROOM OPERATOR, ETELVINA L 787.20 Dysphagia, Unspecified 04/16/2012 Ot 793.19 OTHER NONSPECIFIC ABNORMAL FINDING OF EVONNE 04/16/2012 Ot 922.1 CONTUSION OF CHEST WALL 04/16/2012 Ot 959.11 OTH INJURY OF CHEST WALL 04/16/2012 Ot E000.8 OTHER EXTERNAL CAUSE STATUS 04/16/2012 Ot E849.0 ACCIDENT IN HOME 04/16/2012 Ot E888.9 FALL NOS 06/03/2012 Ot 923.03 CONTUSION OF UPPER ARM 06/03/2012 Ot 959.2 SHLDR/UPPER ARM INJ NOS 06/03/2012 Ot E000.8 OTHER EXTERNAL CAUSE STATUS 06/03/2012 Ot E849.0 ACCIDENT IN HOME 06/03/2012 Ot E884.5 FALL FROM OTHER FURNITURE 06/20/2012 Ot 250.00 DIAB MELVA WO COMPL, TYPE II OR UNSPEC TY 06/20/2012 Ot 272.4 HYPERLIPIDEMIA NEC/NOS 06/20/2012 Ot 278.01 MORBID OBESITY 06/20/2012 Ot 300.00 ANXIETY STATE NOS 06/20/2012 Ot 305.1 TOBACCO USE DISORDER 06/20/2012 Ot 311 DEPRESSIVE DISORDER NEC 06/20/2012 Ot 496 CHR AIRWAY OBSTRUCT NEC 06/20/2012 Ot 824.4 FX BIMALLEOLAR-CLOSED 06/20/2012 Ot E000.8 OTHER EXTERNAL CAUSE STATUS 06/20/2012 Ot E013.8 OTHER PERSONAL HYGIENE ACTIVITY 06/20/2012 Ot E849.0 ACCIDENT IN HOME 06/20/2012 Ot E884.6 FALL FROM COMMODE,TOILET 06/20/2012 Ot V45.82 PERCUTANEOUS TRANSLUM CORON ANGIOPLASTY 06/20/2012 Ot V85.41 BODY MASS INDEX 40.0-44.9, ADULT 09/04/2012 Ot 466.0 ACUTE BRONCHITIS 09/04/2012 Ot 786.2 COUGH 09/07/2012 LAURIE MORA APRN S V03.82 PPV23 (PNEUMOVAX) DX 09/07/2012 LAURIE MORA APRN S V76.10 BREAST CANCER SCREENING 09/07/2012 LAURIE MORA APRN S V76.12 MAMMOGRAM SCREENING 09/07/2012 LAURIE MORA APRN S V76.2 CERVICAL CANCER SCREENING (PAP SMEAR) 09/07/2012 V03.82 Ppv23 ( pneumovax) Dx 09/07/2012 V76.10 Breast Cancer Screening 09/07/2012 V76.12 Mammogram Screening 09/07/2012 V76.2 Cervical Cancer Screening (pap Smear) 09/07/2012 LAURIE MORA APRN S V03.82 Ppv23 (pneumovax) Dx 09/07/2012 LAURIE MORA APRN S V76.10 Breast Cancer Screening 09/07/2012 SUSHANT MORA APRNA S V76.12 Mammogram Screening 09/07/2012 LAURIE MORA APRN S V76.2 Cervical Cancer Screening (pap Smear) 09/07/2012 LAURIE MORA APRN S V03.82 Ppv23 (pneumovax) Dx 09/07/2012 LAURIE MORA APRN S V76.10 Breast Cancer Screening 09/07/2012 LAURIE MORA APRN S V76.12 Mammogram Screening 09/07/2012 LAURIE MORA APRN V76.2 Cervical Cancer Screening (pap Smear) 09/07/2012 ROMELIA FISCHER MD V03.82 Ppv23 (pneumovax) Dx 09/07/2012 ROMELIA FISCHER MD V76.10 Breast Cancer Screening 09/07/2012 ROMELIA FISCHER MD V76.12 Mammogram Screening 09/07/2012 ROMELIA FISCHER MD V76.2 Cervical Cancer Screening (pap Smear) 09/07/2012 BYRON BOSS MD V03.82 Ppv23 (pneumovax) Dx 09/07/2012 BYRON BOSS MD V76.10 Breast Cancer Screening 09/07/2012 BYRON BOSS MD V76.12 Mammogram Screening 09/07/2012 BYRON BOSS MD V76.2 Cervical Cancer Screening (pap Smear) 09/07/2012 V03.82 Ppv23 ( pneumovax) Dx 09/07/2012 V76.10 Breast Cancer Screening 09/07/2012 V76.12 Mammogram Screening 09/07/2012 V76.2 Cervical Cancer Screening (pap Smear) 09/07/2012 V03.82 Ppv23 ( pneumovax) Dx 09/07/2012 V76.10 Breast Cancer Screening 09/07/2012 V76.12 Mammogram Screening 09/07/2012 V76.2 Cervical Cancer Screening (pap Smear) 09/07/2012 V03.82 Ppv23 ( pneumovax) Dx 09/07/2012 V76.10 Breast Cancer Screening 09/07/2012 V76.12 Mammogram Screening 09/07/2012 V76.2 Cervical Cancer Screening (pap Smear) 09/07/2012 V03.82 Ppv23 ( pneumovax) Dx 09/07/2012 V76.10 Breast Cancer Screening 09/07/2012 V76.12 Mammogram Screening 09/07/2012 V76.2 Cervical Cancer Screening (pap Smear) 09/07/2012 BYRON BOSS MD V03.82 Ppv23 (pneumovax) Dx 09/07/2012 BYRON BOSS MD V76.10 Breast Cancer Screening 09/07/2012 BYRON BOSS MD V76.12 Mammogram Screening 09/07/2012 BYRON BOSS MD V76.2 Cervical Cancer Screening (pap Smear) 09/07/2012 BYRON BOSS MD V03.82 Ppv23 (pneumovax) Dx 09/07/2012 BYRON BOSS MD V76.10 Breast Cancer Screening 09/07/2012 BYRON BOSS MD V76.12 Mammogram Screening 09/07/2012 BYRON BOSS MD V76.2 Cervical Cancer Screening (pap Smear) 09/07/2012 LADONNA SALGUERO DO V03.82 Ppv23 (pneumovax) Dx 09/07/2012 LADONNA SALGUERO DO V76.10 Breast Cancer Screening 09/07/2012 LADONNA SALGUERO DO V76.12 Mammogram Screening 09/07/2012 LADONNA SALGUERO DO V76.2 Cervical Cancer Screening (pap Smear) 09/07/2012 BYRON BOSS MD V03.82 Ppv23 (pneumovax) Dx 09/07/2012 BYRON BOSS MD V76.10 Breast Cancer Screening 09/07/2012 BYRON BOSS MD V76.12 Mammogram Screening 09/07/2012 BYRON BOSS MD V76.2 Cervical Cancer Screening (pap Smear) 09/07/2012 LADONNA SALGUERO DO V03.82 Ppv23 (pneumovax) Dx 09/07/2012 LADONNA SALGUERO DO V76.10 Breast Cancer Screening 09/07/2012 LADONNA SALGUERO DO V76.12 Mammogram Screening 09/07/2012 LADONNA SALGUERO DO V76.2 Cervical Cancer Screening (pap Smear) 09/07/2012 BYRON BOSS MD V03.82 Ppv23 (pneumovax) Dx 09/07/2012 BYRON BOSS MD V76.10 Breast Cancer Screening 09/07/2012 BYRON BOSS MD V76.12 Mammogram Screening 09/07/2012 BYRON BOSS MD6.2 Cervical Cancer Screening (pap Smear) 09/07/2012 BYRON BOSS MD V03.82 Ppv23 (pneumovax) Dx 09/07/2012 BYRON BOSS MD V76.10 Breast Cancer Screening 09/07/2012 BYRON BOSS MD V76.12 Mammogram Screening 09/07/2012 KARYN OLVERA, BYRON Bruner V76.2 Cervical Cancer Screening (pap Smear) 09/07/2012 SALGUERO DOTEREA K V03.82 Ppv23 (pneumovax) Dx 09/07/2012 SALGUERO DO LADONNA K V76.10 Breast Cancer Screening 09/07/2012 SALGUERO DO LADONNA K V76.12 Mammogram Screening 09/07/2012 SALGUERO LADONNA K V76.2 Cervical Cancer Screening (pap Smear) 09/07/2012 NOEMY PRAKASHTEREA K V03.82 Ppv23 (pneumovax) Dx 09/07/2012 SALGUERO LADONNA K V76.10 Breast Cancer Screening 09/07/2012 SALGUERO LADONNA K V76.12 Mammogram Screening 09/07/2012 NOEMY PRAKASHTEREA K V76.2 Cervical Cancer Screening (pap Smear) 09/07/2012 NOEMY PRAKASHTEREA K V03.82 Ppv23 (pneumovax) Dx 09/07/2012 NOEMY PRAKASHTEREA K V76.10 Breast Cancer Screening 09/07/2012 NOEMY PRAKASHTEREA K V76.12 Mammogram Screening 09/07/2012 NOEMY PRAKASHTEREA K V76.2 Cervical Cancer Screening (pap Smear) 09/07/2012 NOEMY PRAKASHTEREA K V03.82 Ppv23 (pneumovax) Dx 09/07/2012 NOEMY PRAKASHTEREA K V76.10 Breast Cancer Screening 09/07/2012 NOEMY PRAKASHTEREA K V76.12 Mammogram Screening 09/07/2012 NOEMY PRAKASHTEREA K V76.2 Cervical Cancer Screening (pap Smear) 09/07/2012 [employer]AD[employer]ine [employer] ROOM OPERATOR, ETELVINA L V03.82 Ppv23 (pneumovax) Dx 09/07/2012 [employer]AD[employer]ine [employer] ROOM OPERATOR, ETELVINA L V76.10 Breast Cancer Screening 09/07/2012 MADL [employer] CONTR[employer] ROOM OPERATOR, ETELVINA L V76.12 Mammogram Screening 09/07/2012 [employer]AD[employer]ine [employer] ROOM OPERATOR, ETELVINA L V76.2 Cervical Cancer Screening (pap Smear) 09/07/2012 [employer]ine [employer] ROOM OPERATOR, ETELVINA L V03.82 Ppv23 (pneumovax) Dx 09/07/2012 [employer] ROOM OPERATOR, ETELVINA L V76.10 Breast Cancer Screening 09/07/2012 MADL [employer] CONTR[employer] ROOM OPERATOR, ETELVINA L V76.12 Mammogram Screening 09/07/2012 MADL [employer] CONTR[employer] ROOM OPERATOR, ETELVINA L V76.2 Cervical Cancer Screening (pap Smear) 09/07/2012 M[employer]L [employer] ROOM OPERATOR, ETELVINA L V03.82 Ppv23 (pneumovax) Dx 09/07/2012 MADL [employer] CONTR[employer] ROOM OPERATOR, ETELVINA L V76.10 Breast Cancer Screening 09/07/2012 M[employer]L [employer] CONTR[employer] ROOM OPERATOR, ETELVINA L V76.12 Mammogram Screening 09/07/2012 M[employer]L [employer] ROOM OPERATOR, ETELVINA L V76.2 Cervical Cancer Screening (pap Smear) 09/07/2012 SALGUERO DO LADONNA K V03.82 Ppv23 (pneumovax) Dx 09/07/2012 SALGUERO DO LADONNA K V76.10 Breast Cancer Screening 09/07/2012 SALGUERO DO LADONNA K V76.12 Mammogram Screening 09/07/2012 SALGUERO DO LADONNA K V76.2 Cervical Cancer Screening (pap Smear) 09/07/2012 NOEMY PRAKASH LADONNA K V03.82 Ppv23 (pneumovax) Dx 09/07/2012 SALGUERO DO LADONNA K V76.10 Breast Cancer Screening 09/07/2012 SALGUERO DO LADONNA K V76.12 Mammogram Screening 09/07/2012 SALGUERO DO LADONNA K V76.2 Cervical Cancer Screening (pap Smear) 09/07/2012 M[employer]L [employer] ROOM OPERATOR, ETELVINA L V03.82 Ppv23 (pneumovax) Dx 09/07/2012 [employer]OM OPERATOR, ETELVINA L V76.10 Breast Cancer Screening 09/07/2012 [employer]OM OPERATOR, ETELVINA L V76.12 Mammogram Screening 09/07/2012 [employer] ROOM OPERATOR, ETELVINA L V76.2 Cervical Cancer Screening (pap Smear) 09/07/2012 [employer] ROOM OPERATOR, ETELVINA L V03.82 Ppv23 (pneumovax) Dx 09/07/2012 [employer] ROOM OPERATOR, ETELVINA L V76.10 Breast Cancer Screening 09/07/2012 [employer] ROOM OPERATOR, ETELVINA L V76.12 Mammogram Screening 09/07/2012 [employer] ROOM OPERATOR, ETELVINA L V76.2 Cervical Cancer Screening (pap Smear) 09/07/2012 [employer] ROOM OPERATOR, ETELVINA L V03.82 Ppv23 (pneumovax) Dx 09/07/2012 [employer]OM OPERATOR, ETELVINA L V76.10 Breast Cancer Screening 09/07/2012 [employer] ROOM OPERATOR, ETELVINA L V76.12 Mammogram Screening 09/07/2012 [employer] ROOM OPERATOR, ETELVINA L V76.2 Cervical Cancer Screening (pap Smear) 09/07/2012 [employer] ROOM OPERATOR, ETELVINA L V03.82 Ppv23 (pneumovax) Dx 09/07/2012 [employer]OM OPERATOR, ETELVINA L V76.10 Breast Cancer Screening 09/07/2012 [facility] [employer] ROOM OPERATOR, ETELVINA L V76.12 Mammogram Screening 09/07/2012 [facility] [employer] ROOM OPERATOR, ETELVINA L V76.2 Cervical Cancer Screening (pap Smear) 09/07/2012 [employer]OM OPERATOR, ETELVINA L V03.82 Ppv23 (pneumovax) Dx 09/07/2012 [facility] [employer] ROOM OPERATOR, ETELVINA L V76.10 Breast Cancer Screening 09/07/2012 [facility] [employer] ROOM OPERATOR, ETELVINA L V76.12 Mammogram Screening 09/07/2012 [facility] [employer] ROOM OPERATOR, ETELVINA L V76.2 Cervical Cancer Screening (pap Smear) 09/07/2012 [employer]OM OPERATOR, ETELVINA L V03.82 Ppv23 (pneumovax) Dx 09/07/2012 [employer]OM OPERATOR, ETELVINA L V76.10 Breast Cancer Screening 09/07/2012 [facility] [employer] ROOM OPERATOR, ETELVINA L V76.12 Mammogram Screening 09/07/2012 [facility] [employer] ROOM OPERATOR, ETELVINA L V76.2 Cervical Cancer Screening (pap Smear) 09/07/2012 [employer]OM OPERATOR, ETELVINA L V03.82 Ppv23 (pneumovax) Dx 09/07/2012 [employer]OM OPERATOR, ETELVINA L V76.10 Breast Cancer Screening 09/07/2012 [employer]OM OPERATOR, ETELVINA L V76.12 Mammogram Screening 09/07/2012 [employer]OM OPERATOR, ETELVINA L V76.2 Cervical Cancer Screening (pap Smear) 09/07/2012 LADONNA SALGUERO DO V03.82 Ppv23 (pneumovax) Dx 09/07/2012 TERE SALGUERO DOA K V76.10 Breast Cancer Screening 09/07/2012 TERE SALGUERO DOA K V76.12 Mammogram Screening 09/07/2012 TERE SALGUERO DOA K V76.2 Cervical Cancer Screening (pap Smear) 09/07/2012 TERE SALGUERO DOA K V03.82 Ppv23 (pneumovax) Dx 09/07/2012 TERE SALGUERO DOA K V76.10 Breast Cancer Screening 09/07/2012 TERE SALGUERO DOA K V76.12 Mammogram Screening 09/07/2012 TERE SALGUERO DOA K V76.2 Cervical Cancer Screening (pap Smear) 09/07/2012 [employer] ROOM OPERATORAHMMADA L V03.82 Ppv23 (pneumovax) Dx 09/07/2012 [employer]OM OPERATOR, ETELVINA L V76.10 Breast Cancer Screening 09/07/2012 [employer]OM OPERATOR, ETELVINA L V76.12 Mammogram Screening 09/07/2012 [employer] ROOM OPERATORHAMMAD BowserA L V76.2 Cervical Cancer Screening (pap Smear) 09/07/2012 NOEMY PRAKASH LADONNA K V03.82 Ppv23 (pneumovax) Dx 09/07/2012 TERE SALGUERO DOA K V76.10 Breast Cancer Screening 09/07/2012 TERE SALGUERO DOA K V76.12 Mammogram Screening 09/07/2012 TERE SALGUERO DOA K V76.2 Cervical Cancer Screening (pap Smear) 09/07/2012 [employer]OM OPERATOR, ETELVINA L V03.82 Ppv23 (pneumovax) Dx 09/07/2012 [employer] CONTROL ROOM OPERATOR, ETELVINA L V76.10 Breast Cancer Screening 09/07/2012 [employer] CONTROL ROOM OPERATOR, ETELVINA L V76.12 Mammogram Screening 09/07/2012 [employer] CONTROL ROOM OPERATOR, ETELVINA L V76.2 Cervical Cancer Screening (pap Smear) 09/08/2012 Ot 305.1 TOBACCO USE DISORDER 09/08/2012 Ot 466.0 ACUTE BRONCHITIS 09/08/2012 Ot 786.2 COUGH 09/19/2012 Ot 305.1 TOBACCO USE DISORDER 09/19/2012 Ot 491.9 CHRONIC BRONCHITIS NOS 09/19/2012 Ot 780.79 OTH MALAISE FATIGUE 10/22/2012 [employer] CONTROL ROOM OPERATOR, LAURIE S V58.69 high risk medication 10/22/2012 V58.69 high risk medication 10/22/2012 LAURIE MORA APRN S V58.69 high risk medication 10/22/2012 SUSHANT MORA APRNA S V58.69 high risk medication 10/22/2012 ROMELIA FISCHER MD V58.69 high risk medication 10/22/2012 BYRON BOSS MD V58.69 taking high-risk medication for a long time 10/22/2012 V58.69 taking high- risk medication for a long time 10/22/2012 V58.69 taking high- risk medication for a long time 10/22/2012 V58.69 taking high- risk medication for a long time 10/22/2012 V58.69 taking high- risk medication for a long time 10/22/2012 BYRON BOSS MD V58.69 taking high-risk medication for a long time 10/22/2012 BYRON BOSS MD V58.69 taking high-risk medication for a long time 10/22/2012 LADONNA SALGUERO DO K V58.69 taking high-risk medication for a long time 10/22/2012 BYRON BOSS MD V58.69 taking high-risk medication for a long time 10/22/2012 LADONNA SALGUERO DO K V58.69 taking high-risk medication for a long time 10/22/2012 BYRON BOSS MD V58.69 taking high-risk medication for a long time 10/22/2012 BYRON BOSS MD V58.69 taking high-risk medication for a long time 10/22/2012 SALGUERO TERE PRAKASHA K V58.69 taking high-risk medication for a long time 10/22/2012 SALGUERO DO LADONNA K V58.69 taking high-risk medication for a long time 10/22/2012 SALGUERO DO LADONNA K V58.69 taking high-risk medication for a long time 10/22/2012 SALGUERO DO LADONNA K V58.69 taking high-risk medication for a long time 10/22/2012 ETELVINA LEONARD APRN V58.69 taking high-risk medication for a long time 10/22/2012 [employer] CONTROL ROOM OPERATOR, ETELVINA L V58.69 taking high-risk medication for a long time 10/22/2012 [employer] CONTROL ROOM OPERATORHAMMADA L V58.69 taking high-risk medication for a long time 10/22/2012 LADONNA SALGUERO DO K V58.69 taking high-risk medication for a long time 10/22/2012 LADONNA SALGUERO DO K V58.69 taking high-risk medication for a long time 10/22/2012 [employer] CONTROL ROOM OPERATORETELVINA L V58.69 taking high-risk medication for a long time 10/22/2012 [employer] CONTROL ROOM OPERATOR ETELVINA L V58.69 taking high-risk medication for a long time 10/22/2012 [employer] CONTROL ROOM OPERATORHAMMADA L V58.69 taking high-risk medication for a long time 10/22/2012 [employer] CONTROL ROOM OPERATORHAMMADA L V58.69 taking high-risk medication for a long time 10/22/2012 [employer] CONTROL ROOM OPERATORHAMMAD BowserA L V58.69 taking high-risk medication for a long time 10/22/2012 [employer] CONTROL ROOM OPERATORHAMMADA L V58.69 taking high-risk medication for a long time 10/22/2012 [employer] CONTROL ROOM OPERATOR ETELVINA L V58.69 taking high-risk medication for a long time 10/22/2012 LADONNA SALGUERO DO K V58.69 taking high-risk medication for a long time 10/22/2012 LADONNA SALGUERO DO K V58.69 taking high-risk medication for a long time 10/22/2012 [employer] CONTROL ROOM OPERATORETELVINA Bowser L V58.69 taking high-risk medication for a long time 10/22/2012 LADONNA SALGUERO DO K V58.69 taking high-risk medication for a long time 10/22/2012 [employer] CONTROL ROOM OPERATORHAMMAD BowserA L V58.69 taking high-risk medication for a long time 10/26/2012 Ot 250.00 DIAB MELVA WO COMPL, TYPE II OR UNSPEC TY 10/26/2012 Ot 278.00 OBESITY, NOS 10/26/2012 Ot 300.00 ANXIETY STATE NOS 10/26/2012 Ot 305.1 TOBACCO USE DISORDER 10/26/2012 Ot 311 DEPRESSIVE DISORDER NEC 10/26/2012 Ot 401.9 HYPERTENSION NOS 10/26/2012 Ot 414.01 CORONARY ATHEROSCLEROSIS OF [place] CORON 10/26/2012 Ot 491.21 OBSTR CHRONIC BRONCHITIS, W (ACUTE) EXAC 10/26/2012 Ot 530.81 ESOPHAGEAL REFLUX 10/26/2012 Ot 724.5 BACKACHE NOS 10/26/2012 Ot 786.50 CHEST PAIN NOS 10/26/2012 Ot V45.82 PERCUTANEOUS TRANSLUM CORON ANGIOPLASTY 10/26/2012 Ot V85.39 BODY MASS INDEX 39.0-39.9, ADULT 11/01/2012 465.9 UPPER RESPIRATORY INFECTION 11/01/2012 PALOMA MORA APRNNDA S 465.9 UPPER RESPIRATORY INFECTION 11/01/2012 PALOMA MORA APRNNDA S 465.9 UPPER RESPIRATORY INFECTION 11/01/2012 AMADO OLVERA, ROMELIA 465.9 UPPER RESPIRATORY INFECTION 11/01/2012 BYRON BOSS MD 465.9 UPPER RESPIRATORY INFECTION 11/01/2012 465.9 UPPER RESPIRATORY INFECTION 11/01/2012 465.9 UPPER RESPIRATORY INFECTION 11/01/2012 465.9 UPPER RESPIRATORY INFECTION 11/01/2012 465.9 UPPER RESPIRATORY INFECTION 11/01/2012 BYRON BOSS MD 465.9 UPPER RESPIRATORY INFECTION 11/01/2012 BYRON BOSS MD 465.9 UPPER RESPIRATORY INFECTION 11/01/2012 TERE SALGUERO DOA K 465.9 UPPER RESPIRATORY INFECTION 11/01/2012 BYRON BOSS MD 465.9 UPPER RESPIRATORY INFECTION 11/01/2012 TERE SALGUERO DOA K 465.9 UPPER RESPIRATORY INFECTION 11/01/2012 BYRON BOSS MD 465.9 UPPER RESPIRATORY INFECTION 11/01/2012 BYRON BOSS MD 465.9 UPPER RESPIRATORY INFECTION 11/01/2012 SALGUERO DO LADONNA K 465.9 UPPER RESPIRATORY INFECTION 11/01/2012 SALGUERO DO LADONNA K 465.9 UPPER RESPIRATORY INFECTION 11/01/2012 SALGUERO DO, LADONNA K 465.9 UPPER RESPIRATORY INFECTION 11/01/2012 SALGUERO DO LADONNA K 465.9 UPPER RESPIRATORY INFECTION 11/01/2012 [employer] CONTROL ROOM OPERATOR, ETELVINA L 465.9 UPPER RESPIRATORY INFECTION 11/01/2012 [employer] CONTROL ROOM OPERATOR, ETELVINA L 465.9 UPPER RESPIRATORY INFECTION 11/01/2012 [employer] CONTROL ROOM OPERATOR, ETELVINA L 465.9 UPPER RESPIRATORY INFECTION 11/01/2012 SALGUERO DO, LADONNA K 465.9 UPPER RESPIRATORY INFECTION 11/01/2012 SALGUERO DO, LADONNA K 465.9 UPPER RESPIRATORY INFECTION 11/01/2012 [employer] CONTROL ROOM OPERATOR, ETELVINA L 465.9 UPPER RESPIRATORY INFECTION 11/01/2012 [employer] CONTROL ROOM OPERATOR, ETELVINA L 465.9 UPPER RESPIRATORY INFECTION 11/01/2012 [employer] CONTROL ROOM OPERATOR, ETELVINA L 465.9 UPPER RESPIRATORY INFECTION 11/01/2012 [employer] CONTROL ROOM OPERATOR, ETELVINA L 465.9 UPPER RESPIRATORY INFECTION 11/01/2012 [employer] CONTROL ROOM OPERATOR, ETELVINA L 465.9 UPPER RESPIRATORY INFECTION 11/01/2012 [employer] CONTROL ROOM OPERATOR, ETELVINA L 465.9 UPPER RESPIRATORY INFECTION 11/01/2012 [employer] CONTROL ROOM OPERATOR, ETELVINA L 465.9 UPPER RESPIRATORY INFECTION 11/01/2012 SALGUERO DO, LADONNA K 465.9 UPPER RESPIRATORY INFECTION 11/01/2012 SALGUERO DO, LADONNA K 465.9 UPPER RESPIRATORY INFECTION 11/01/2012 [employer] CONTROL ROOM OPERATOR, ETELVINA L 465.9 UPPER RESPIRATORY INFECTION 11/01/2012 SALGUERO DO, LADONNA K 465.9 UPPER RESPIRATORY INFECTION 11/01/2012 [employer] CONTROL ROOM OPERATOR, ETELVINA L 465.9 UPPER RESPIRATORY INFECTION 11/13/2012 Ot 250.00 DIAB MELVA WO COMPL, TYPE II OR UNSPEC TY 11/13/2012 Ot 272.4 HYPERLIPIDEMIA NEC/NOS 11/13/2012 Ot 278.00 OBESITY, NOS 11/13/2012 Ot 300.00 ANXIETY STATE NOS 11/13/2012 Ot 305.1 TOBACCO USE DISORDER 11/13/2012 Ot 311 DEPRESSIVE DISORDER NEC 11/13/2012 Ot 401.9 HYPERTENSION NOS 11/13/2012 Ot 414.01 CORONARY ATHEROSCLEROSIS OF [place] CORON 11/13/2012 Ot 458.9 HYPOTENSION NOS 11/13/2012 Ot 491.21 OBSTR CHRONIC BRONCHITIS, W (ACUTE) EXAC 11/13/2012 Ot 530.81 ESOPHAGEAL REFLUX 11/13/2012 Ot 584.9 ACUTE RENAL FAILURE, UNSPECIFIED 11/13/2012 Ot 599.0 URIN TRACT INFECTION NOS 11/13/2012 Ot 724.5 BACKACHE NOS 11/13/2012 Ot 780.2 SYNCOPE AND COLLAPSE 11/13/2012 Ot 786.59 CHEST PAIN NEC 11/13/2012 Ot 959.6 HIP THIGH INJURY NOS 11/13/2012 Ot E888.9 FALL NOS 11/13/2012 Ot V45.82 PERCUTANEOUS TRANSLUM CORON ANGIOPLASTY 11/13/2012 Ot V85.41 BODY MASS INDEX 40.0-44.9, ADULT 12/02/2012 MORGAN HARRIS, LAURIE S 244.9 HYPOTHYROIDISM 12/02/2012 AMADO OLVERA, ROMELIA 244.9 HYPOTHYROIDISM 12/02/2012 KARYN OLVERA, BYRON M 244.9 HYPOTHYROIDISM 12/02/2012 244.9 HYPOTHYROIDISM 12/02/2012 244.9 HYPOTHYROIDISM 12/02/2012 244.9 HYPOTHYROIDISM 12/02/2012 244.9 HYPOTHYROIDISM 12/02/2012 KARYN OLVERA, BYRON Bruner 244.9 HYPOTHYROIDISM 12/02/2012 KARYN OLVERA, BYRON Bruner 244.9 HYPOTHYROIDISM 12/02/2012 SALGUERO DO, LADONNA K 244.9 HYPOTHYROIDISM 12/02/2012 KARYN OLVERA, BYRON M 244.9 HYPOTHYROIDISM 12/02/2012 SALGUERO DO, LADONNA K 244.9 HYPOTHYROIDISM 12/02/2012 KARYN OLVERA, BYRON M 244.9 HYPOTHYROIDISM 12/02/2012 KARYN OLVERA, BYRON M 244.9 HYPOTHYROIDISM 12/02/2012 SALGUERO DO, LADONNA K 244.9 HYPOTHYROIDISM 12/02/2012 SALGUERO DO, LADONNA K 244.9 HYPOTHYROIDISM 12/02/2012 SALGUERO DO, LADONNA K 244.9 HYPOTHYROIDISM 12/02/2012 SALGUERO DO, LADONNA K 244.9 HYPOTHYROIDISM 12/02/2012 [employer] CONTROL ROOM OPERATOR, ETELVINA L 244.9 HYPOTHYROIDISM 12/02/2012 [employer] CONTROL ROOM OPERATOR, ETELVINA L 244.9 HYPOTHYROIDISM 12/02/2012 [employer] CONTROL ROOM OPERATOR, ETELVINA L 244.9 HYPOTHYROIDISM 12/02/2012 SALGUERO DO, LADONNA K 244.9 HYPOTHYROIDISM 12/02/2012 SALGUERO DO, LADONNA K 244.9 HYPOTHYROIDISM 12/02/2012 [employer] CONTROL ROOM OPERATOR, ETELVINA L 244.9 HYPOTHYROIDISM 12/02/2012 [employer] CONTROL ROOM OPERATOR, ETELVINA L 244.9 HYPOTHYROIDISM 12/02/2012 [employer] CONTROL ROOM OPERATOR, ETELVINA L 244.9 HYPOTHYROIDISM 12/02/2012 [employer] CONTROL ROOM OPERATOR, ETELVINA L 244.9 HYPOTHYROIDISM 12/02/2012 [employer] CONTROL ROOM OPERATOR, ETELVINA L 244.9 HYPOTHYROIDISM 12/02/2012 [employer] CONTROL ROOM OPERATOR, ETELVINA L 244.9 HYPOTHYROIDISM 12/02/2012 [employer] CONTROL ROOM OPERATOR, ETELVINA L 244.9 HYPOTHYROIDISM 12/02/2012 SALGUERO DO, LADONNA K 244.9 HYPOTHYROIDISM 12/02/2012 SALGUERO DO, LADONNA K 244.9 HYPOTHYROIDISM 12/02/2012 [employer] CONTROL ROOM OPERATOR, ETELVINA L 244.9 HYPOTHYROIDISM 12/02/2012 SALGUERO DO, LADONNA K 244.9 HYPOTHYROIDISM 12/02/2012 [employer] CONTROL ROOM OPERATOR, ETELVINA L 244.9 HYPOTHYROIDISM 12/26/2012 Ot 305.1 TOBACCO USE DISORDER 12/26/2012 Ot 338.29 OTHER CHRONIC PAIN 12/26/2012 Ot 466.0 ACUTE BRONCHITIS 12/26/2012 Ot 786.2 COUGH 01/01/2013 Ot 845.00 SPRAIN OF ANKLE NOS 01/01/2013 Ot 924.20 CONTUSION OF FOOT 01/01/2013 Ot 959.7 LOWER LEG INJURY NOS 01/01/2013 Ot E000.8 OTHER EXTERNAL CAUSE STATUS 01/01/2013 Ot E849.0 ACCIDENT IN HOME 01/01/2013 Ot E888.9 FALL NOS 01/19/2013 Ot 110.4 DERMATOPHYTOSIS OF FOOT 01/19/2013 Ot 729.5 PAIN IN LIMB 02/08/2013 BYRON BOSS MD 780.52 insomnia 02/08/2013 780.52 insomnia 02/08/2013 780.52 insomnia 02/08/2013 780.52 insomnia 02/08/2013 780.52 insomnia 02/08/2013 BYRON BOSS MD 780.52 insomnia 02/08/2013 BYRON BOSS MD 780.52 insomnia 02/08/2013 NOEMY PRAKASH LADONNA K 780.52 insomnia 02/08/2013 BYRON BOSS MD 780.52 insomnia 02/08/2013 SALGUERO DO LADONNA K 780.52 insomnia 02/08/2013 BYRON BOSS MD 780.52 insomnia 02/08/2013 BYRON BOSS MD 780.52 insomnia 02/08/2013 SALGUERO DO LADONNA K 780.52 insomnia 02/08/2013 SALGUERO DO, LADONNA K 780.52 insomnia 02/08/2013 SALGUERO DO, LADONNA K 780.52 insomnia 02/08/2013 SALGUERO DO LADONNA K 780.52 insomnia 02/08/2013 [employer] CONTROL ROOM OPERATOR, ETELVINA L 780.52 insomnia 02/08/2013 [employer] CONTROL ROOM OPERATOR, ETELVINA L 780.52 insomnia 02/08/2013 [employer] CONTROL ROOM OPERATOR, ETELVINA L 780.52 insomnia 02/08/2013 SALGUERO DO LADONNA K 780.52 insomnia 02/08/2013 SALGUERO DO, LADONNA K 780.52 insomnia 02/08/2013 [employer] CONTROL ROOM OPERATOR, ETELVINA L 780.52 insomnia 02/08/2013 [employer] CONTROL ROOM OPERATOR, ETELVINA L 780.52 insomnia 02/08/2013 [employer] CONTROL ROOM OPERATOR, ETELVINA L 780.52 insomnia 02/08/2013 [employer] CONTROL ROOM OPERATOR, ETELVINA L 780.52 insomnia 02/08/2013 [employer] CONTROL ROOM OPERATOR, ETELVINA L 780.52 insomnia 02/08/2013 [employer] CONTROL ROOM OPERATOR, ETELVINA L 780.52 insomnia 02/08/2013 [employer] CONTROL ROOM OPERATOR, ETELVINA L 780.52 insomnia 02/08/2013 SALGUERO DO LADONNA K 780.52 insomnia 02/08/2013 SALGUERO DO LADONNA K 780.52 insomnia 02/08/2013 [employer] CONTROL ROOM OPERATOR, ETELVINA L 780.52 insomnia 02/08/2013 SALGUERO DO, LADONNA K 780.52 insomnia 02/08/2013 [employer] CONTROL ROOM OPERATOR, ETELVINA L 780.52 insomnia 04/17/2013 REHAN OLVERA, MARCO A Garcia Ot 305.1 TOBACCO USE DISORDER 04/17/2013 REHAN OLVEAR, MARCO A Garcia Ot 490 BRONCHITIS NOS 04/17/2013 REHAN OLVERA, MARCO A Garcia Ot 786.2 COUGH 04/18/2013 FELICIA ENCINAS DO Ot 782.1 NONSPECIF SKIN ERUPT NEC 04/18/2013 FELICIA ENCINAS DO Ot 995.27 OTHER DRUG ALLERGY 04/18/2013 FELICIA ENCINAS DO Ot E930.3 ADV EFF ERYTHROMYCIN 06/03/2013 110.1 ONYCHOMYCOSIS 06/03/2013 719.07 EDEMA FOOT 06/03/2013 110.1 ONYCHOMYCOSIS 06/03/2013 719.07 EDEMA FOOT 06/03/2013 110.1 ONYCHOMYCOSIS 06/03/2013 719.07 EDEMA FOOT 06/03/2013 BYRON BOSS MD 110.1 ONYCHOMYCOSIS 06/03/2013 BYRON BOSS MD 719.07 EDEMA FOOT 06/03/2013 BYRON BOSS MD 110.1 ONYCHOMYCOSIS 06/03/2013 BYRON BOSS MD 719.07 EDEMA FOOT 06/03/2013 SALGUERO DO, LADONNA K 110.1 ONYCHOMYCOSIS 06/03/2013 SALGUERO DO, LADONNA K 719.07 EDEMA FOOT 06/03/2013 BYRON BOSS MD 110.1 ONYCHOMYCOSIS 06/03/2013 BYRON BOSS MD 719.07 EDEMA FOOT 06/03/2013 SALGUERO DO, LADONNA K 110.1 ONYCHOMYCOSIS 06/03/2013 SALGUERO DO, LADONNA K 719.07 EDEMA FOOT 06/03/2013 BYRON BOSS MD 110.1 ONYCHOMYCOSIS 06/03/2013 BYRON BOSS MD 719.07 EDEMA FOOT 06/03/2013 BYRON BOSS MD 110.1 ONYCHOMYCOSIS 06/03/2013 BYRON BOSS MD 719.07 EDEMA FOOT 06/03/2013 SALGUERO DO, LADONNA K 110.1 ONYCHOMYCOSIS 06/03/2013 SALGUERO DO, LADONNA K 719.07 EDEMA FOOT 06/03/2013 SALGUERO DO, LADONNA K 110.1 ONYCHOMYCOSIS 06/03/2013 SALGUERO DO, LADONNA K 719.07 EDEMA FOOT 06/03/2013 SALGUERO DO, LADONNA K 110.1 ONYCHOMYCOSIS 06/03/2013 SALGUERO DO, LADONNA K 719.07 EDEMA FOOT 06/03/2013 SALGUERO DO, LADONNA K 110.1 ONYCHOMYCOSIS 06/03/2013 SALGUERO DO, LADONNA K 719.07 EDEMA FOOT 06/03/2013 [employer] CONTROL ROOM OPERATOR, ETELVINA L 110.1 ONYCHOMYCOSIS 06/03/2013 [employer] CONTROL ROOM OPERATOR, ETELVINA L 719.07 EDEMA FOOT 06/03/2013 [employer] CONTROL ROOM OPERATOR, ETELVINA L 110.1 ONYCHOMYCOSIS 06/03/2013 [employer] CONTROL ROOM OPERATOR, ETELVINA L 719.07 EDEMA FOOT 06/03/2013 [employer] CONTROL ROOM OPERATOR, ETELVINA L 110.1 ONYCHOMYCOSIS 06/03/2013 [employer] CONTROL ROOM OPERATOR, ETELVINA L 719.07 EDEMA FOOT 06/03/2013 SALGUERO DO, LADONNA K 110.1 ONYCHOMYCOSIS 06/03/2013 SALGUERO DO, LADONNA K 719.07 EDEMA FOOT 06/03/2013 SALGUERO DO, LADONNA K 110.1 ONYCHOMYCOSIS 06/03/2013 SALGUERO DO, LADONNA K 719.07 EDEMA FOOT 06/03/2013 [employer] CONTROL ROOM OPERATOR, ETELVINA L 110.1 ONYCHOMYCOSIS 06/03/2013 [employer] CONTROL ROOM OPERATOR, ETELVINA L 719.07 EDEMA FOOT 06/03/2013 [employer] CONTROL ROOM OPERATOR, ETELVINA L 110.1 ONYCHOMYCOSIS 06/03/2013 [employer] CONTROL ROOM OPERATOR, ETELVINA L 719.07 EDEMA FOOT 06/03/2013 [employer] CONTROL ROOM OPERATOR, ETELVINA L 110.1 ONYCHOMYCOSIS 06/03/2013 [employer] CONTROL ROOM OPERATOR, ETELVINA L 719.07 EDEMA FOOT 06/03/2013 [employer] CONTROL ROOM OPERATOR, ETELVINA L 110.1 ONYCHOMYCOSIS 06/03/2013 [employer] CONTROL ROOM OPERATOR, ETELVINA L 719.07 EDEMA FOOT 06/03/2013 [employer] CONTROL ROOM OPERATOR, ETELVINA L 110.1 ONYCHOMYCOSIS 06/03/2013 [employer] CONTROL ROOM OPERATOR, ETELVINA L 719.07 EDEMA FOOT 06/03/2013 [employer] CONTROL ROOM OPERATOR, ETELVINA L 110.1 ONYCHOMYCOSIS 06/03/2013 [employer] CONTROL ROOM OPERATOR, ETELVINA L 719.07 EDEMA FOOT 06/03/2013 [employer] CONTROL ROOM OPERATOR, ETELVINA L 110.1 ONYCHOMYCOSIS 06/03/2013 [employer] CONTROL ROOM OPERATOR, ETELVINA L 719.07 EDEMA FOOT 06/03/2013 SALGUERO DO, LADONNA K 110.1 ONYCHOMYCOSIS 06/03/2013 SALGUERO DO, LADONNA K 719.07 EDEMA FOOT 06/03/2013 SALGUERO DO, LADONNA K 110.1 ONYCHOMYCOSIS 06/03/2013 SALGUERO DO, LADONNA K 719.07 EDEMA FOOT 06/03/2013 [employer] CONTROL ROOM OPERATOR, ETELVINA L 110.1 ONYCHOMYCOSIS 06/03/2013 [employer] CONTROL ROOM OPERATOR, ETELVINA L 719.07 EDEMA FOOT 06/03/2013 SALGUERO DO, LADONNA K 110.1 ONYCHOMYCOSIS 06/03/2013 SALGUERO DO, LADONNA K 719.07 EDEMA FOOT 06/03/2013 [employer] CONTROL ROOM OPERATOR, ETELVINA L 110.1 ONYCHOMYCOSIS 06/03/2013 [employer] CONTROL ROOM OPERATOR, ETELVINA L 719.07 EDEMA FOOT 08/03/2013 EDUARDO VILLEGAS MD Ot 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 08/03/2013 EDUARDO VILLEGAS MD Ot 788.30 UNSPECIFIED URINARY INCONTINENCE 08/25/2013 BYRON BOSS MD 311 DEPRESSIVE DISORDER NOT ELSEWHERE CLASSIFIED 08/25/2013 BYRON BOSS MD 595.0 ACUTE CYSTITIS 08/25/2013 SALGUERO DO, LADONNA K 311 DEPRESSIVE DISORDER NOT ELSEWHERE CLASSIFIED 08/25/2013 SALGUERO DO, LADONNA K 595.0 ACUTE CYSTITIS 08/25/2013 BYRON BOSS MD 311 depression 08/25/2013 BYRON BOSS MD 595.0 ACUTE CYSTITIS 08/25/2013 SALGUERO DO, LADONNA K 311 depression 08/25/2013 SALGUERO DO, LADONNA K 595.0 ACUTE CYSTITIS 08/25/2013 BYRON BOSS MD 311 depression 08/25/2013 BYRON BOSS MD 595.0 ACUTE CYSTITIS 08/25/2013 BYRON BOSS MD M 311 depression 08/25/2013 BYRON BOSS MD 595.0 ACUTE CYSTITIS 08/25/2013 SALGUERO DO, LADONNA K 311 depression 08/25/2013 SALGUERO DO, LADONNA K 595.0 ACUTE CYSTITIS 08/25/2013 SALGUERO DO, LADONNA K 311 depression 08/25/2013 SALGUERO DO, LADONNA K 595.0 ACUTE CYSTITIS 08/25/2013 SALGUERO DO, LADONNA K 311 depression 08/25/2013 SALGUERO DO, LADONNA K 595.0 ACUTE CYSTITIS 08/25/2013 SALGUERO DO, LADONNA K 311 depression 08/25/2013 SALGUERO DO, LADONNA K 595.0 ACUTE CYSTITIS 08/25/2013 [employer] CONTROL ROOM OPERATOR, ETELVINA L 311 depression 08/25/2013 [employer] CONTROL ROOM OPERATOR, ETELVINA L 595.0 ACUTE CYSTITIS 08/25/2013 [employer] CONTROL ROOM OPERATOR, ETELVINA L 311 depression 08/25/2013 [employer] CONTROL ROOM OPERATOR, ETELVINA L 595.0 ACUTE CYSTITIS 08/25/2013 [employer] CONTROL ROOM OPERATOR, ETLEVINA L 311 depression 08/25/2013 [employer] CONTROL ROOM OPERATOR, ETELVINA L 595.0 ACUTE CYSTITIS 08/25/2013 SALGUERO DO, LADONNA K 311 depression 08/25/2013 SALGUERO DO, LADONNA K 595.0 ACUTE CYSTITIS 08/25/2013 SALGUERO DO, LADONNA K 311 depression 08/25/2013 SALGUERO DO, LADONNA K 595.0 ACUTE CYSTITIS 08/25/2013 [employer] CONTROL ROOM OPERATOR, ETELVINA L 311 depression 08/25/2013 [employer] CONTROL ROOM OPERATOR, ETELVINA L 595.0 ACUTE CYSTITIS 08/25/2013 [employer] CONTROL ROOM OPERATOR, ETELVINA L 311 depression 08/25/2013 [employer] CONTROL ROOM OPERATOR, ETELVINA L 595.0 ACUTE CYSTITIS 08/25/2013 [employer] CONTROL ROOM OPERATOR, ETELVINA L 311 depression 08/25/2013 [employer] CONTROL ROOM OPERATOR, ETELVINA L 595.0 ACUTE CYSTITIS 08/25/2013 [employer] CONTROL ROOM OPERATOR, ETELVINA L 311 depression 08/25/2013 [employer] CONTROL ROOM OPERATOR, ETELVINA L 595.0 ACUTE CYSTITIS 08/25/2013 [employer] CONTROL ROOM OPERATOR, ETELVINA L 311 depression 08/25/2013 [employer] CONTROL ROOM OPERATOR, ETELVINA L 595.0 ACUTE CYSTITIS 08/25/2013 [employer] CONTROL ROOM OPERATOR, ETELVINA L 311 depression 08/25/2013 [employer] CONTROL ROOM OPERATOR, ETELVINA L 595.0 ACUTE CYSTITIS 08/25/2013 [employer] CONTROL ROOM OPERATOR, ETELVINA L 311 depression 08/25/2013 [employer] CONTROL ROOM OPERATOR, ETELVINA L 595.0 ACUTE CYSTITIS 08/25/2013 SALGUERO DO, LADONNA K 311 depression 08/25/2013 SALGUERO DO, LADONNA K 595.0 ACUTE CYSTITIS 08/25/2013 SALGUERO DO, LADONNA K 311 depression 08/25/2013 SALGUERO DO, LADONNA K 595.0 ACUTE CYSTITIS 08/25/2013 [employer] CONTROL ROOM OPERATOR, ETELVINA L 311 depression 08/25/2013 [employer] CONTROL ROOM OPERATOR, ETELVINA L 595.0 ACUTE CYSTITIS 08/25/2013 SALGUERO DO, LADONNA K 311 depression 08/25/2013 SALGUERO DO, LADONNA K 595.0 ACUTE CYSTITIS 08/25/2013 [employer] CONTROL ROOM OPERATOR, ETELVINA L 311 depression 08/25/2013 [employer] CONTROL ROOM OPERATOR, ETELVINA L 595.0 ACUTE CYSTITIS 09/02/2013 SALGUERO DO LADONNA K 709.8 FISSURES SKIN 09/02/2013 BYRON BOSS MD 709.8 FISSURES SKIN 09/02/2013 SALGUERO DO LADONNA K 709.8 FISSURES SKIN 09/02/2013 BYRON BOSS MD 709.8 FISSURES SKIN 09/02/2013 BYRON BOSS MD 709.8 FISSURES SKIN 09/02/2013 SALGUERO DO, LADONNA K 709.8 FISSURES SKIN 09/02/2013 SALGUERO DO, LADONNA K 709.8 FISSURES SKIN 09/02/2013 SALGUERO DO, LADONNA K 709.8 FISSURES SKIN 09/02/2013 SALGUERO DO, LADONNA K 709.8 FISSURES SKIN 09/02/2013 [employer] ROOM OPERATOR, ETELVINA L 709.8 FISSURES SKIN 09/02/2013 [employer] ROOM OPERATOR, ETELVINA L 709.8 FISSURES SKIN 09/02/2013 [employer] ROOM OPERATOR, ETELVINA L 709.8 FISSURES SKIN 09/02/2013 SALGUERO DO, LADONNA K 709.8 FISSURES SKIN 09/02/2013 SALGUERO DO, LADONNA K 709.8 FISSURES SKIN 09/02/2013 [employer] ROOM OPERATOR, ETELVINA L 709.8 FISSURES SKIN 09/02/2013 [employer] ROOM OPERATOR, ETELVINA L 709.8 FISSURES SKIN 09/02/2013 [employer] ROOM OPERATOR, ETELVINA L 709.8 FISSURES SKIN 09/02/2013 [employer] ROOM OPERATOR, ETELVINA L 709.8 FISSURES SKIN 09/02/2013 [employer] ROOM OPERATOR, ETELVINA L 709.8 FISSURES SKIN 09/02/2013 [employer] ROOM OPERATOR, ETELVINA L 709.8 FISSURES SKIN 09/02/2013 [employer] ROOM OPERATOR, ETELVINA L 709.8 FISSURES SKIN 09/02/2013 SALGUERO DO, LADONNA K 709.8 FISSURES SKIN 09/02/2013 SALGUERO DO, LADONNA K 709.8 FISSURES SKIN 09/02/2013 [employer] ROOM OPERATOR, ETELVINA L 709.8 FISSURES SKIN 09/02/2013 SALGUERO DO, LADONNA K 709.8 FISSURES SKIN 09/02/2013 [employer]OM OPERATOR, ETELVINA L 709.8 FISSURES SKIN 09/22/2013 BYRON BOSS MD 788.1 pain during urination (dysuria) 09/22/2013 SALGUERO DO, LADONNA K 788.1 pain during urination (dysuria) 09/22/2013 BYRON BOSS MD 788.1 pain during urination (dysuria) 09/22/2013 BYRON BOSS MD 788.1 pain during urination (dysuria) 09/22/2013 SALGUERO DO, LADONNA K 788.1 pain during urination (dysuria) 09/22/2013 SALGUERO DO, LADONNA K 788.1 pain during urination (dysuria) 09/22/2013 SALGUERO DO, LADONNA K 788.1 pain during urination (dysuria) 09/22/2013 SALGUERO DO, LADONNA K 788.1 pain during urination (dysuria) 09/22/2013 [employer] ROOM OPERATOR, ETELVINA L 788.1 pain during urination (dysuria) 09/22/2013 [employer] ROOM OPERATOR, ETELVINA L 788.1 pain during urination (dysuria) 09/22/2013 [employer] ROOM OPERATOR, ETELVINA L 788.1 pain during urination (dysuria) 09/22/2013 SALGUERO DO, LADONNA K 788.1 PAIN DURING URINATION (DYSURIA) 09/22/2013 SALGUERO DO, LADONNA K 788.1 PAIN DURING URINATION (DYSURIA) 09/22/2013 [employer] ROOM OPERATOR, ETELVINA L 788.1 PAIN DURING URINATION (DYSURIA) 09/22/2013 [employer] ROOM OPERATOR, ETELVINA L 788.1 PAIN DURING URINATION (DYSURIA) 09/22/2013 [employer] ROOM OPERATOR, ETELVINA L 788.1 PAIN DURING URINATION (DYSURIA) 09/22/2013 [employer] ROOM OPERATOR, ETELVINA L 788.1 PAIN DURING URINATION (DYSURIA) 09/22/2013 [employer] ROOM OPERATOR, ETELVINA L 788.1 PAIN DURING URINATION (DYSURIA) 09/22/2013 [employer] ROOM OPERATOR, ETELVINA L 788.1 PAIN DURING URINATION (DYSURIA) 09/22/2013 [employer] ROOM OPERATOR, ETELVINA L 788.1 PAIN DURING URINATION (DYSURIA) 09/22/2013 SALGUERO DO LADONNA K 788.1 PAIN DURING URINATION (DYSURIA) 09/22/2013 SALGUERO DO, LADONNA K 788.1 PAIN DURING URINATION (DYSURIA) 09/22/2013 [employer] ROOM OPERATOR, ETELVINA L 788.1 PAIN DURING URINATION (DYSURIA) 09/22/2013 SALGUERO DO, LADONNA K 788.1 PAIN DURING URINATION (DYSURIA) 09/22/2013 [employer]OM OPERATOR, ETELVINA L 788.1 PAIN DURING URINATION (DYSURIA) 10/22/2013 EDUARDO VILLEGAS MD Ot 596.51 HYPERTONICITY OF BLADDER 10/22/2013 EDUARDO VILLEGAS MD Ot 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 10/22/2013 EDUARDO VILLEGAS MD Ot 788.30 UNSPECIFIED URINARY INCONTINENCE 10/22/2013 EDUARDO VILLEGAS MD Ot V58.69 [facility] MED,LT,CURRENT USE 10/25/2013 HARDEEP DORANTES Ot 892.0 OPEN WOUND OF FOOT 10/25/2013 HARDEEP DORANTES Ot 959.7 LOWER LEG INJURY NOS 10/25/2013 HARDEEP DORANTES Ot E000.8 OTHER EXTERNAL CAUSE STATUS 10/25/2013 HARDEEP DORANTES Ot E849.0 ACCIDENT IN HOME 10/25/2013 HARDEEP DORANTES Ot E916 STRUCK BY FALLING OBJECT 10/25/2013 HARDEEP DORANTES Ot V06.1 [id number], COMBINED [ 11/04/2013 MARLA EVERETT MD, Ot V58.2 BLOOD TRANSFUSION, NO DX 11/04/2013 MARLA EVERETT MD, Ot V58.32 ENCOUNTER FOR REMOVAL OF SUTURES 12/12/2013 PATRICIA MCDONALD MD Ot 996.78 OTH COMP DUE TO OTH INTRNL ORTHPEDIC DEV 02/11/2014 NOEMY PRAKASH LADONNA K Ot 244.9 HYPOTHYROIDISM NOS 02/11/2014 NOEMY PRAKASH LADONNA K Ot 250.00 DIAB MELVA WO COMPL, TYPE II OR UNSPEC TY 02/11/2014 NOEMY PRAKASH LADONNA K Ot 272.4 HYPERLIPIDEMIA NEC/NOS 02/11/2014 NOEMY PRAKASH LADONNA K Ot 275.2 DIS MAGNESIUM METABOLISM 02/11/2014 NOEMY PRAKASH LADONNA K Ot 278.00 OBESITY, NOS 02/11/2014 NOEMY PRAKASH LADONNA K Ot 300.00 ANXIETY STATE NOS 02/11/2014 SALGUERO DO LADONNA K Ot 305.1 TOBACCO USE DISORDER 02/11/2014 NOEMY PRAKASH LADONNA K Ot 311 DEPRESSIVE DISORDER NEC 02/11/2014 NOEMY PRAKASH LADONNA K Ot 338.29 OTHER CHRONIC PAIN 02/11/2014 NOEMY PRAKASH LADONNA K Ot 401.9 HYPERTENSION NOS 02/11/2014 NOEMY PRAKASH LADONNA K Ot 414.01 CORONARY ATHEROSCLEROSIS OF [place] CORON 02/11/2014 NOEMY PRAKASH LADONNA K Ot 491.22 OBSTRUCTIVE CHRONIC BRONCHITIS WITH ACUT 02/11/2014 NOEMY PRAKASH LADONNA K Ot 530.81 ESOPHAGEAL REFLUX 02/11/2014 NOEMY PRAKASH LADONNA K Ot 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 02/11/2014 NOEMY PRAKASH LADONNA K Ot 786.50 CHEST PAIN NOS 02/11/2014 NOEMY PRAKASH LADONNA K Ot 790.6 ABN BLOOD CHEMISTRY NEC 02/11/2014 NOEMY PRAKASH LADONNA K Ot 799.02 HYPOXEMIA 02/11/2014 TERE SALGUERO DOA K Ot V45.82 PERCUTANEOUS TRANSLUM CORON ANGIOPLASTY 02/11/2014 NOEMY PRAKASH LADONNA K Ot V85.39 BODY MASS INDEX 39.0-39.9, ADULT 02/13/2014 THOMPSON QURESHI [employer] CONTR[employer] ROOM OPERATOR Ot 724.5 BACKACHE NOS 02/27/2014 TERE SALGUERO DOA K 381.01 ACUTE SEROUS OTITIS MEDIA 02/27/2014 NOEMY PRAKASH LADONNA K 381.01 ACUTE SEROUS OTITIS MEDIA 02/27/2014 NOEMY PRAKASH LADONNA K 381.01 ACUTE SEROUS OTITIS MEDIA 02/27/2014 SALGUERO DO LADONNA K 381.01 ACUTE SEROUS OTITIS MEDIA 02/27/2014 ETELVINA LEONARD APRN 381.01 ACUTE SEROUS OTITIS MEDIA 02/27/2014 MADL [employer] CONTR[employer] ROOM OPERATOR, ETELVINA L 381.01 ACUTE SEROUS OTITIS MEDIA 02/27/2014 MADL [employer] CONTROL ROOM OPERATOR, ETELVINA L 381.01 ACUTE SEROUS OTITIS MEDIA 02/27/2014 SALGUERO DO, LADONNA K 381.01 ACUTE SEROUS OTITIS MEDIA 02/27/2014 SALGUERO DO, LADONNA K 381.01 ACUTE SEROUS OTITIS MEDIA 02/27/2014 MADL [employer] CONTROL ROOM OPERATOR, ETELVINA L 381.01 ACUTE SEROUS OTITIS MEDIA 02/27/2014 MADL STE[employer] CONTROL ROOM OPERATOR, ETELVINA L 381.01 ACUTE SEROUS OTITIS MEDIA 02/27/2014 MADL STE[employer] PL[employer] CONTROL ROOM OPERATOR, ETELVINA L 381.01 ACUTE SEROUS OTITIS MEDIA 02/27/2014 MADL STE[employer] CONTROL ROOM OPERATOR, ETELVINA L 381.01 ACUTE SEROUS OTITIS MEDIA 02/27/2014 MADL STE[employer] CONTROL ROOM OPERATOR, ETELVINA L 381.01 ACUTE SEROUS OTITIS MEDIA 02/27/2014 MADL STE[employer] CONTROL ROOM OPERATOR, ETELVINA L 381.01 ACUTE SEROUS OTITIS MEDIA 02/27/2014 MADL STE[employer] CONTROL ROOM OPERATOR, ETELVINA L 381.01 ACUTE SEROUS OTITIS MEDIA 02/27/2014 SALGUERO DO, LADONNA K 381.01 ACUTE SEROUS OTITIS MEDIA 02/27/2014 SALGUERO DO, LADONNA K 381.01 ACUTE SEROUS OTITIS MEDIA 02/27/2014 MADL [employer] CONTROL ROOM OPERATOR, ETELVINA L 381.01 ACUTE SEROUS OTITIS MEDIA 02/27/2014 SALGUERO DO, LADONNA K 381.01 ACUTE SEROUS OTITIS MEDIA 02/27/2014 MADL [employer] CONTROL ROOM OPERATOR, ETELVINA L 381.01 ACUTE SEROUS OTITIS MEDIA 05/22/2014 MADL STE[employer] CONTROL ROOM OPERATOR, ETELVINA L V16.0 FAMILY HISTORY OF MALIGNANT NEOPLASM OF GASTROINTESTINAL TRACT 05/22/2014 MADL [employer] CONTROL ROOM OPERATOR, ETELVINA L V16.0 FAMILY HISTORY OF MALIGNANT NEOPLASM OF GASTROINTESTINAL TRACT 05/22/2014 SALGUERO DO, LADONNA K V16.0 FAMILY HISTORY OF MALIGNANT NEOPLASM OF GASTROINTESTINAL TRACT 05/22/2014 SALGUERO DO, LADONNA K V16.0 FAMILY HISTORY OF MALIGNANT NEOPLASM OF GASTROINTESTINAL TRACT 05/22/2014 MADL STE[employer] CONTROL ROOM OPERATOR, ETELVINA L V16.0 FAMILY HISTORY OF MALIGNANT NEOPLASM OF GASTROINTESTINAL TRACT 05/22/2014 MADL [employer] CONTROL ROOM OPERATOR, ETELVINA L V16.0 FAMILY HISTORY OF MALIGNANT NEOPLASM OF GASTROINTESTINAL TRACT 05/22/2014 MADL STE[employer] CONTROL ROOM OPERATOR, ETELVINA L V16.0 FAMILY HISTORY OF MALIGNANT NEOPLASM OF GASTROINTESTINAL TRACT 05/22/2014 MADL STE[employer] CONTROL ROOM OPERATOR, ETELVINA L V16.0 FAMILY HISTORY OF MALIGNANT NEOPLASM OF GASTROINTESTINAL TRACT 05/22/2014 MADL STE[employer] CONTROL ROOM OPERATOR, ETELVINA L V16.0 FAMILY HISTORY OF MALIGNANT NEOPLASM OF GASTROINTESTINAL TRACT 05/22/2014 MADL STE[employer] CONTROL ROOM OPERATOR, ETELVINA L V16.0 FAMILY HISTORY OF MALIGNANT NEOPLASM OF GASTROINTESTINAL TRACT 05/22/2014 MADL STE[employer] CONTROL ROOM OPERATOR, ETELVINA L V16.0 FAMILY HISTORY OF MALIGNANT NEOPLASM OF GASTROINTESTINAL TRACT 05/22/2014 SALGUERO DO LADONNA K V16.0 FAMILY HISTORY OF MALIGNANT NEOPLASM OF GASTROINTESTINAL TRACT 05/22/2014 SALGUERO DO LADONNA K V16.0 FAMILY HISTORY OF MALIGNANT NEOPLASM OF GASTROINTESTINAL TRACT 05/22/2014 MADL [employer] CONTROL ROOM OPERATOR, ETELVINA L V16.0 FAMILY HISTORY OF MALIGNANT NEOPLASM OF GASTROINTESTINAL TRACT 05/22/2014 SALGUERO DO LADONNA K V16.0 FAMILY HISTORY OF MALIGNANT NEOPLASM OF GASTROINTESTINAL TRACT 05/22/2014 AISHA STE[employer] CONTROL ROOM OPERATOR, ETELVINA L V16.0 FAMILY HISTORY OF MALIGNANT NEOPLASM OF GASTROINTESTINAL TRACT 05/23/2014 BRADLY KIRBY MD, FACC FACP CCDS Ot 250.00 DIAB MELVA WO COMPL, TYPE II OR UNSPEC TY 05/23/2014 BRADLY KIRBY MD, FACC FACP CCDS Ot 278.00 OBESITY, NOS 05/23/2014 KOFI OLVERA FACC ALI FACP CCDS Ot 300.4 DYSTHYMIC DISORDER 05/23/2014 KOFI OLVERA FACC ALI FACP CCDS Ot 305.1 TOBACCO USE DISORDER 05/23/2014 BRADLY KIRBY MD, FACC FACP CCDS Ot 414.01 CORONARY ATHEROSCLEROSIS OF [place] CORON 05/23/2014 BRADLY KIRBY MD, FACC FACP CCDS Ot 496 CHR AIRWAY OBSTRUCT NEC 05/23/2014 BRADLY KIRBY MD, FACC FACP CCDS Ot 786.50 CHEST PAIN NOS 05/23/2014 BRADLY KIRBY MD, FACC FACP CCDS Ot V45.82 PERCUTANEOUS TRANSLUM CORON ANGIOPLASTY 05/23/2014 BRADLY KIRBY MD, FACC FACP CCDS Ot V58.67 LONG-TERM (CURRENT) USE OF INSULIN 05/23/2014 BRADLY KIRBY MD, FACC FACP CCDS Ot V58.69 OT MED,LT,CURRENT USE 05/23/2014 KOFI OLVERA FACC, ALI FACP CCDS Ot V85.41 BODY MASS INDEX 40.0-44.9, ADULT 06/05/2014 JEFERSON GAMINO MD Ot 244.9 HYPOTHYROIDISM NOS 06/05/2014 JEFERSON GAMINO MD Ot 250.00 DIAB MELVA WO COMPL, TYPE II OR UNSPEC TY 06/05/2014 JEFERSON GAMINO MD Ot 272.4 HYPERLIPIDEMIA NEC/NOS 06/05/2014 JEFERSON GAMINO MD Ot 401.9 HYPERTENSION NOS 06/05/2014 JEFERSON GAMINO MD Ot 414.01 CORONARY ATHEROSCLEROSIS OF [place] CORON 06/05/2014 SHANA OLVERA, JEFERSON Bruner Ot 496 CHR AIRWAY OBSTRUCT NEC 06/05/2014 JEFERSON GAMINO MD Ot 562.10 DIVERTICULOSIS COLON (W/O MENT OF HEMORR 06/05/2014 JEFERSON GAMINO MD Ot V16.0 FAMILY HX-GI MALIGNANCY 06/05/2014 JEFERSON GAMINO MD Ot V76.51 SCREEN MAL NEOP-COLON 07/10/2014 SHANA OLVERA, JEFERSON Bruner Ot 530.3 ESOPHAGEAL STRICTURE 07/10/2014 JEFERSON GAMINO MD Ot 535.50 UNSP GASTRITIS GASTRODUODENITIS W/O ME 07/10/2014 JEFERSON GAMINO MD Ot 553.3 DIAPHRAGMATIC HERNIA 08/28/2014 MADL [employer] CONTR[employer] ROOM OPERATOR, ETELVINA L 381.01 ACUTE SEROUS OTITIS MEDIA 08/28/2014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 CORON ATHEROSCLER NOS TYPE VESSEL, NATIV 12/30/2016 KOFI OLVERA FACC, ALI FACP CCDS Ot 414.8 CHR ISCHEMIC HRT DIS NEC 12/30/2016 KOFI OLVERA FACC, ALI FACP CCDS Ot 458.9 HYPOTENSION NOS 12/30/2016 KOFI OLVERA FACC, ALI FACP CCDS Ot 780.4 DIZZINESS AND GIDDINESS 12/30/2016 KYLAH CREWS DECAL MAKER Ot E78.5 HYPERLIPIDEMIA, UNSPECIFIED 12/30/2016 KYLAH CREWS DECAL MAKER Ot I25.9 CHRONIC ISCHEMIC HEART DISEASE, UNSPECIF 12/30/2016 ETELVINA LEONARD DECAL MAKER Ot 414.00 CORON ATHEROSCLER NOS TYPE VESSEL, NATIV 12/30/2016 ETELVINA LEONARD DECAL MAKER Ot 780.2 SYNCOPE AND COLLAPSE 12/30/2016 ETELVINA LEONARD DECAL MAKER Ot V45.82 PERCUTANEOUS TRANSLUM CORON ANGIOPLASTY 12/30/2016 KYLAH CREWS DECAL MAKER Ot 272.4 HYPERLIPIDEMIA NEC/NOS 12/30/2016 KYLAH CREWS DECAL MAKER Ot 276.9 ELECTROLYT/FLUID DIS NEC 12/30/2016 KYLAH CREWS DECAL MAKER Ot 401.9 HYPERTENSION NOS 12/30/2016 KYLAH CREWS DECAL MAKER Ot 414.00 CORON ATHEROSCLER NOS TYPE VESSEL, NATIV 12/30/2016 BILL CLEMENTE DO Ot 250.00 DIAB MELVA WO COMPL, TYPE II OR UNSPEC TY 12/30/2016 BILL CLEMENTE DO Ot 272.4 HYPERLIPIDEMIA NEC/NOS 12/30/2016 BILL CLEMENTE DO Ot 414.00 CORON ATHEROSCLER NOS TYPE VESSEL, NATIV 12/30/2016 BILL CLEMENTE DO Ot 724.5 BACKACHE NOS 12/30/2016 BILL CLEMENTE DO Ot 733.90 BONE CARTILAGE DIS NOS 12/30/2016 BILL CLEMENTE DO Ot 715.37 LOC OSTEOARTH NOS-ANKLE 12/30/2016 KOFI OLVERA FACC, ALI FACP CCDS Ot 250.00 DIAB MELVA WO COMPL, TYPE II OR UNSPEC TY 12/30/2016 KOFI OLVERA FACC, ALI FACP CCDS Ot 272.4 HYPERLIPIDEMIA NEC/NOS 12/30/2016 KOFI OLVERA FACC, ALI FACP CCDS Ot 278.00 OBESITY, NOS 12/30/2016 KOFI OLVERA FACC, ALI FACP CCDS Ot 305.1 TOBACCO USE DISORDER 12/30/2016 KOFI OLVERA FACC, ALI FACP CCDS Ot 401.9 HYPERTENSION NOS 12/30/2016 KOFI OLVERA FACC, ALI FACP CCDS Ot 414.00 CORON ATHEROSCLER NOS TYPE VESSEL, NATIV 12/30/2016 KOFI OLVERA FACC, ALI FACP CCDS Ot 447.72 ABDOMINAL AORTIC ECTASIA 12/30/2016 KOFI HERNÁNDEZ, ALI FACP CCDS Ot 458.9 HYPOTENSION NOS 12/30/2016 KOFI HERNÁNDEZ, ALI FACP CCDS Ot 496 CHR AIRWAY OBSTRUCT NEC 12/30/2016 KOFI OLVERA [facility], ALI FACP CCDS Ot 530.81 ESOPHAGEAL REFLUX 12/30/2016 KYLAH CREWS DECAL MAKER Ot I71.4 ABDOMINAL AORTIC ANEURYSM, WITHOUT RUPTU 12/30/2016 BILL CLEMENTE DO Ot 250.00 DIAB MELVA WO COMPL, TYPE II OR UNSPEC TY 12/30/2016 BILL CLEMENTE DO Ot 959.7 LOWER LEG INJURY NOS 12/30/2016 BILL CLEMENTE DO Ot E000.8 OTHER EXTERNAL CAUSE STATUS 12/30/2016 BILL CLEMENTE DO Ot E928.9 ACCIDENT NOS 12/30/2016 BILL CLEMENTE DO Ot N39.0 URINARY TRACT INFECTION, SITE NOT SPECIF 12/30/2016 KOFI OLVERA [facility], BRADLY FACP CCDS Ot E78.5 HYPERLIPIDEMIA, UNSPECIFIED 12/30/2016 KOFI OLVERA [facility], BRADLY FAC CCDS Ot I25.10 ATHSCL HEART DISEASE OF [place] CORONARY 01/01/2017 ADELFO WASHINGTON DECAL MAKER Ot I71.4 ABDOMINAL AORTIC ANEURYSM, WITHOUT RUPTU 01/01/2017 ADELFO WASHINGTON DECAL MAKER Ot I71.4 ABDOMINAL AORTIC ANEURYSM, WITHOUT RUPTU 01/01/2017 ADELFO WASHINGTON DECAL MAKER Ot I71.4 ABDOMINAL AORTIC ANEURYSM, WITHOUT RUPTU 01/21/2017 ADELFO WASHINGTON DECAL MAKER Ot I71.4 ABDOMINAL AORTIC ANEURYSM, WITHOUT RUPTU 02/28/2017 Ot V67.9 03/30/2017 Ot V67.9 10/29/2017 BILL CLEMENTE DO Ot Z12.31 ENCNTR SCREEN MAMMOGRAM FOR MALIGNANT NE 11/06/2017 BILL CLEMENTE DO Ot Z12.31 ENCNTR SCREEN MAMMOGRAM FOR MALIGNANT NE 11/25/2017 BILL CLEMENTE DO Ot R92.8 OTH ABN AND INCONCLUSIVE FINDINGS ON DX 11/26/2017 Ot V76.12 OTH SCREEN MAMMO-MALIGN NEOPLASM OF [place] 11/26/2017 EDUARDO VILLEGAS MD Ot 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 11/26/2017 EDUARDO VILLEGAS MD Ot 788.30 UNSPECIFIED URINARY INCONTINENCE 11/26/2017 EDUARDO VILLEGAS MD Ot V72.63 PRE-PROCEDURAL LABORATORY EXAMINATION 11/26/2017 EDUARDO VILLEGAS MD Ot V74.8 SCREEN-BACTERIAL DIS NEC 11/26/2017 EDUARDO VILLEGAS MD Ot 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 11/26/2017 EDUARDO VILLEGAS MD Ot 788.30 UNSPECIFIED URINARY INCONTINENCE 11/26/2017 EDUARDO VILLEGAS MD Ot V72.63 PRE-PROCEDURAL LABORATORY EXAMINATION 11/26/2017 EDUARDO VILLEGAS MD, Ot V74.8 SCREEN-BACTERIAL DIS NEC 11/26/2017 BAIMA, KYLAH L DECAL MAKER Ot 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 11/26/2017 BAIMA, KYLAH L DECAL MAKER Ot 397.0 TRICUSPID VALVE DISEASE 11/26/2017 BAIMA, KYLAH L DECAL MAKER Ot 401.9 HYPERTENSION NOS 11/26/2017 BAIMA, KYLAH L DECAL MAKER Ot 414.00 CORON ATHEROSCLER NOS TYPE VESSEL, NATIV 11/26/2017 BAIMA, KYLAH L DECAL MAKER Ot 250.00 DIAB MELVA WO COMPL, TYPE II OR UNSPEC TY 11/26/2017 BAIMA, KYLAH L DECAL MAKER Ot 272.4 HYPERLIPIDEMIA NEC/NOS 11/26/2017 BAIMA, KYLAH L DECAL MAKER Ot 305.1 TOBACCO USE DISORDER 11/26/2017 BAIMA, KYLAH L DECAL MAKER Ot 401.9 HYPERTENSION NOS 11/26/2017 BAIMA, KYLAH L DECAL MAKER Ot 414.00 CORON ATHEROSCLER NOS TYPE VESSEL, NATIV 11/26/2017 BAIMA, KYLAH L DECAL MAKER Ot 424.90 ENDOCARDITIS NOS 11/26/2017 BAIMA, KYLAH L DECAL MAKER Ot 496 CHR AIRWAY OBSTRUCT NEC 11/26/2017 PATRICIA MCDONALD MD Ot 996.78 OTH COMP DUE TO OTH INTRNL ORTHPEDIC DEV 11/26/2017 PATRICIA MCDONALD MD, Ot V72.63 PRE-PROCEDURAL LABORATORY EXAMINATION 11/26/2017 PATRICIA MCDONALD MD, Ot V72.81 [id number] CARDIOVASCULAR 11/26/2017 REVEAL MD, PATRICIA L Ot V74.8 SCREEN-BACTERIAL DIS NEC 11/26/2017 KARYN OLVERA, BYRON Bruner Ot 272.4 HYPERLIPIDEMIA NEC/NOS 11/26/2017 KARYN OLVERA, BYRON Bruner Ot 338.29 OTHER CHRONIC PAIN 11/26/2017 KARYN OLVERA, BYRON Bruner Ot 401.9 HYPERTENSION NOS 11/26/2017 BAIMA, KYLAH L DECAL MAKER Ot 414.00 CORON ATHEROSCLER NOS TYPE VESSEL, NATIV 11/26/2017 BAIMA, KYLAH L DECAL MAKER Ot 429.3 CARDIOMEGALY 11/26/2017 SHANA OLVERA, JEFERSON Bruner Ot V72.84 EXAM PRE-OPERATIVE NOS 11/26/2017 BAIMA, KYLAH L DECAL MAKER Ot 272.4 HYPERLIPIDEMIA NEC/NOS 11/26/2017 SHANA OLVERA, JEFERSON Bruner Ot V72.84 EXAM PRE-OPERATIVE NOS 11/26/2017 KOFI OLVERA FACC, ALI FACP CCDS Ot 272.4 HYPERLIPIDEMIA NEC/NOS 11/26/2017 KOFI OLVERA FACC, ALI FACP CCDS Ot 414.00 CORON ATHEROSCLER NOS TYPE VESSEL, NATIV 11/26/2017 KOFI OLVERA FACC, ALI FACP CCDS Ot 414.8 CHR ISCHEMIC HRT DIS NEC 11/26/2017 KOFI OLVERA FACC, ALI FACP CCDS Ot 458.9 HYPOTENSION NOS 11/26/2017 KOFI OLVERA FACC, ALI FACP CCDS Ot 780.4 DIZZINESS AND GIDDINESS 11/26/2017 BAIMA, KYLAH L DECAL MAKER Ot E78.5 HYPERLIPIDEMIA, UNSPECIFIED 11/26/2017 BAIMA, KYLAH L DECAL MAKER Ot I25.9 CHRONIC ISCHEMIC HEART DISEASE, UNSPECIF 11/26/2017 MADL, ETELVINA L DECAL MAKER Ot 414.00 CORON ATHEROSCLER NOS TYPE VESSEL, NATIV 11/26/2017 MADL, ETELVINA L DECAL MAKER Ot 780.2 SYNCOPE AND COLLAPSE 11/26/2017 MADL, ETELVINA L DECAL MAKER Ot V45.82 PERCUTANEOUS TRANSLUM CORON ANGIOPLASTY 11/26/2017 BAIMA, KYLAH L DECAL MAKER Ot 272.4 HYPERLIPIDEMIA NEC/NOS 11/26/2017 BAIMA, KYLAH L DECAL MAKER Ot 276.9 ELECTROLYT/FLUID DIS NEC 11/26/2017 BAIMA, KYLAH L DECAL MAKER Ot 401.9 HYPERTENSION NOS 11/26/2017 BAIMA, KYLAH L DECAL MAKER Ot 414.00 CORON ATHEROSCLER NOS TYPE VESSEL, NATIV 11/26/2017 BRYN BILL PRAKASH Ot 250.00 DIAB MELVA WO COMPL, TYPE II OR UNSPEC TY 11/26/2017 AMELIABILL HAYES DO Ot 272.4 HYPERLIPIDEMIA NEC/NOS 11/26/2017 AMELIASAYDASEAN BILL PRAKASH Ot 414.00 CORON ATHEROSCLER NOS TYPE VESSEL, NATIV 11/26/2017 AMELIABILL HAYES DO Ot 724.5 BACKACHE NOS 11/26/2017 BILL CLEMENTE DO Ot 733.90 BONE CARTILAGE DIS NOS 11/26/2017 AMELIABILL HAYES DO Ot 715.37 LOC OSTEOARTH NOS-ANKLE 11/26/2017 KOFI OLVERA FACC, ALI FACP CCDS Ot 250.00 DIAB EMLVA WO COMPL, TYPE II OR UNSPEC TY 11/26/2017 KOFI OLVERA FACC, ALI FACP CCDS Ot 272.4 HYPERLIPIDEMIA NEC/NOS 11/26/2017 KOFI OLVERA FACC, ALI FACP CCDS Ot 278.00 OBESITY, NOS 11/26/2017 KOFI OLVERA FACC, ALI FACP CCDS Ot 305.1 TOBACCO USE DISORDER 11/26/2017 KOFI OLVERA FACC, ALI FACP CCDS Ot 401.9 HYPERTENSION NOS 11/26/2017 KOFI OLVERA FACC, ALI FACP CCDS Ot 414.00 CORON ATHEROSCLER NOS TYPE VESSEL, NATIV 11/26/2017 KOFI OLVERA FACC, ALI FACP CCDS Ot 447.72 ABDOMINAL AORTIC ECTASIA 11/26/2017 KOFI OLVERA FACC, ALI FACP CCDS Ot 458.9 HYPOTENSION NOS 11/26/2017 KOFI OLVERA FACC, ALI FACP CCDS Ot 496 CHR AIRWAY OBSTRUCT NEC 11/26/2017 KOFI OLVERA FACC, ALI FACP CCDS Ot 530.81 ESOPHAGEAL REFLUX 11/26/2017 KYLAH CREWS DECAL MAKER Ot I71.4 ABDOMINAL AORTIC ANEURYSM, WITHOUT RUPTU 11/26/2017 BILL CLEMENTE DO Ot 250.00 DIAB MELVA WO COMPL, TYPE II OR UNSPEC TY 11/26/2017 BILL CLEMENTE DO Ot 959.7 LOWER LEG INJURY NOS 11/26/2017 BILL CLEMENTE DO Ot E000.8 OTHER EXTERNAL CAUSE STATUS 11/26/2017 BILL CLEMENTE DO Ot E928.9 ACCIDENT NOS 11/26/2017 BILL CLEMENTE DO Ot N39.0 URINARY TRACT INFECTION, SITE NOT SPECIF 11/26/2017 KOFI OLVERA FACC, BRADLY FACP CCDS Ot E78.5 HYPERLIPIDEMIA, UNSPECIFIED 11/26/2017 KOFI OLVERA FACC, ALI FACP CCDS Ot I25.10 ATHSCL HEART DISEASE OF [place] CORONARY 11/26/2017 ADELFO WASHINGTON DECAL MAKER Ot I71.4 ABDOMINAL AORTIC ANEURYSM, WITHOUT RUPTU 11/26/2017 BRYN PRAKASH BILL Radha Ot Z12.31 ENCNTR SCREEN MAMMOGRAM FOR MALIGNANT NE 11/26/2017 BILL CLEMENTE DO Ot R92.8 OTH ABN AND INCONCLUSIVE FINDINGS ON DX 12/01/2017 KOFI OLVERA FACC, BRADLY FACP CCDS Ot E11.9 TYPE 2 DIABETES MELLITUS WITHOUT COMPLIC 12/01/2017 KOFI OLVERA FACC, ALI FACP CCDS Ot I10 ESSENTIAL (PRIMARY) HYPERTENSION 12/01/2017 KOFI OLVERA FACC, ALI FACP CCDS Ot I25.10 ATHSCL HEART DISEASE OF [place] CORONARY 12/01/2017 KOFI OLVERA FACC, ALI FACP CCDS Ot I25.5 ISCHEMIC CARDIOMYOPATHY 12/01/2017 KOFI OLVERA FACC, ALI FACP CCDS Ot I73.9 PERIPHERAL VASCULAR DISEASE, UNSPECIFIED 12/01/2017 KOFI OLVERA FACC, ALI FACP CCDS Ot J43.8 OTHER EMPHYSEMA 12/01/2017 KOFI OLVERA FACC, ALI FACP CCDS Ot R06.02 SHORTNESS OF BREATH 12/01/2017 KOFI OLVERA FACC, ALI FACP CCDS Ot Z72.0 TOBACCO USE 12/03/2017 KOFI OLVERA FACC, ALI FACP CCDS Ot E11.9 TYPE 2 DIABETES MELLITUS WITHOUT COMPLIC 12/03/2017 KOFI OLVERA FACC, ALI FACP CCDS Ot I10 ESSENTIAL (PRIMARY) HYPERTENSION 12/03/2017 KOFI OLVERA FACC, ALI FACP CCDS Ot I25.10 ATHSCL HEART DISEASE OF [place] CORONARY 12/03/2017 KOFI OLVERA FACC, ALI FACP CCDS Ot I25.5 ISCHEMIC CARDIOMYOPATHY 12/03/2017 KOFI OLVERA FACC, ALI FACP CCDS Ot I73.9 PERIPHERAL VASCULAR DISEASE, UNSPECIFIED 12/03/2017 KOFI OLVERA FACC, ALI FACP CCDS Ot J43.8 OTHER EMPHYSEMA 12/03/2017 KOFI OLVERA FACC, ALI FACP CCDS Ot R06.02 SHORTNESS OF BREATH 12/03/2017 KOFI OLVERA FACC, ALI FACP CCDS Ot Z72.0 TOBACCO USE 12/10/2017 KOFI OLVERA FACC, ALI FACP CCDS Ot E11.9 TYPE 2 DIABETES MELLITUS WITHOUT COMPLIC 12/10/2017 KOFI OLVERA FACC, ALI FACP CCDS Ot I10 ESSENTIAL (PRIMARY) HYPERTENSION 12/10/2017 KOFI OLVERA FACC, ALI FACP CCDS Ot I25.10 ATHSCL HEART DISEASE OF [place] CORONARY 12/10/2017 KOFI OLVERA FACC, ALI FACP CCDS Ot I25.5 ISCHEMIC CARDIOMYOPATHY 12/10/2017 KOFI OLVERA FACC, ALI FACP CCDS Ot I73.9 PERIPHERAL VASCULAR DISEASE, UNSPECIFIED 12/10/2017 KOFI OLVERA FACC, ALI FACP CCDS Ot J43.8 OTHER EMPHYSEMA 12/10/2017 KOFI OLVERA FACC, ALI FACP CCDS Ot R06.02 SHORTNESS OF BREATH 12/10/2017 KOFI OLVERA [facility], ALI FACP CCDS Ot Z72.0 TOBACCO USE 12/17/2017 KOFI OLVERA FACC, ALI FACP CCDS Ot E11.9 TYPE 2 DIABETES MELLITUS WITHOUT COMPLIC 12/17/2017 KOFI OLVERA FACC, ALI FACP CCDS Ot I10 ESSENTIAL (PRIMARY) HYPERTENSION 12/17/2017 KOFI OLVERA FACC, ALI FACP CCDS Ot I25.10 ATHSCL HEART DISEASE OF [place] CORONARY 12/17/2017 KOFI OLVERA FACC, ALI FACP CCDS Ot I25.5 ISCHEMIC CARDIOMYOPATHY 12/17/2017 KOFI OLVERA [facility], ALI FACP CCDS Ot I73.9 PERIPHERAL VASCULAR DISEASE, UNSPECIFIED 12/17/2017 KOFI OLVERA FACC, ALI FACP CCDS Ot J43.8 OTHER EMPHYSEMA 12/17/2017 KOFI OLVERA FACC, ALI FACP CCDS Ot R06.02 SHORTNESS OF BREATH 12/17/2017 KOFI OLVERA FACC, ALI FACP CCDS Ot Z72.0 TOBACCO USE 12/22/2017 KYLAH CREWS DECAL MAKER Ot I25.5 ISCHEMIC CARDIOMYOPATHY 12/28/2017 KOFI OLVERA FACC, ALI FACP CCDS Ot E11.9 TYPE 2 DIABETES MELLITUS WITHOUT COMPLIC 12/28/2017 KOFI OLVERA FACC, ALI FACP CCDS Ot I10 ESSENTIAL (PRIMARY) HYPERTENSION 12/28/2017 KOFI OLVERA FACTj, ALI FACP CCDS Ot I25.10 ATHSCL HEART DISEASE OF [place] CORONARY 12/28/2017 KOFI OLVERA FACC, ALI FACP CCDS Ot I25.5 ISCHEMIC CARDIOMYOPATHY 12/28/2017 KOFI OLVERA FACC, ALI FACP CCDS Ot I73.9 PERIPHERAL VASCULAR DISEASE, UNSPECIFIED 12/28/2017 KOFI OLVERA FACC, ALI FACP CCDS Ot J43.8 OTHER EMPHYSEMA 12/28/2017 KOFI OLVERA FACC, ALI FACP CCDS Ot R06.02 SHORTNESS OF BREATH 12/28/2017 KOFI OLVERA FACC, ALI FACP CCDS Ot Z72.0 TOBACCO USE 12/30/2017 KOFI OLVERA FACC, ALI FACP CCDS Ot E11.9 TYPE 2 DIABETES MELLITUS WITHOUT COMPLIC 12/30/2017 KOFI OLVERA FACC, ALI FACP CCDS Ot E78.4 OTHER HYPERLIPIDEMIA 12/30/2017 KOFI OLVERA FACC, ALI FACP CCDS Ot I25.10 ATHSCL HEART DISEASE OF [place] CORONARY 12/30/2017 KOFI OLVERA FAC, ALI FACP CCDS Ot I25.5 ISCHEMIC CARDIOMYOPATHY 12/30/2017 KOFI OLVERA FAC, ALI FACP CCDS Ot I65.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 AND STENOSIS OF BILATERAL CALVERT 12/30/2017 KOFI OLVERA FACC, ALI FACP CCDS Ot I73.9 PERIPHERAL VASCULAR DISEASE, UNSPECIFIED 12/30/2017 KOFI HERNÁNDEZ, ALI FACP CCDS Ot R06.02 SHORTNESS OF BREATH 12/30/2017 KOFI OLVERA [facility], ALI FACP CCDS Ot Z72.0 TOBACCO USE Procedures Code Description Performed By Performed On 59.79 URIN INCONTIN REPAIR NEC 01/28/2012 79.36 OP RED-INT FIX TIB/FIBUL 06/17/2012 99972 HEMOCCULT 09/07/2012 98970 PAP SMEAR 09/13/2012 66289 ROUTINE VENIPUNCTURE 10/11/2012 18480 A1C (IN-HOUSE) 10/11/2012 45243 URINE DRUG SCREEN (IN-HOUSE ) 10/11/2012 61385 MICRO ALBUMIN-IN HOUSE 10/11/2012 88436 CMP 10/11/2012 98499 LIPID PANEL 10/11/2012 3222100 GFR CALC (RESULT ONLY) 10/11/2012 51573 MICROALBUMIN 10/12/2012 18248 URINE DRUG SCREEN (IN-HOUSE ) 10/22/2012 43035 MAMMOGRAM, SCREENING 10/24/2012 Q0091 PAP SMEAR OBTAIN SMEAR 10/24/2012 49006 ROUTINE VENIPUNCTURE 12/02/2012 93841 URINE DRUG SCREEN (IN-HOUSE ) 12/02/2012 53182 URINE PCP GC/MS 12/03/2012 54315 TSH 12/04/2012 65290 ROUTINE VENIPUNCTURE 02/08/2013 89493 A1C (IN-HOUSE) 02/08/2013 15777 URINE DRUG SCREEN (IN-HOUSE ) 02/08/2013 12345 MICRO ALBUMIN-IN HOUSE 02/08/2013 98776 CMP 02/08/2013 5074426 GFR CALC (RESULT ONLY) 02/08/2013 43291 CBC 02/08/2013 57351 MICROALBUMIN 02/08/2013 Vivian Cha 02/11/2013 25208 DEBRIDE NAIL >6 06/03/2013 76459 ROUTINE VENIPUNCTURE 08/10/2013 G0008 FLU ADMINISTRATION ( MEDICARE ONLY) 08/10/2013 34738 URINE DRUG SCREEN (IN-HOUSE ) 08/10/2013 39601 CBC 08/10/2013 50498 CMP 08/10/2013 98262 LIPID PANEL 08/10/2013 3521144 GFR CALC (RESULT ONLY) 08/10/2013 93584 TSH 08/11/2013 81356 A1C (RML) 08/11/2013 15340 UA W/ CULTURE IF INDICATED 08/17/2013 92923 CULTURE URINE 08/18/2013 11042 DEBRIDE NAIL >6 09/02/2013 80167 DEBRIDE NAIL >6 12/09/2013 75831 CMP 2014 93581 MAGNESIUM 2014 77077 A1C (IN-HOUSE) 2014 74659 ROUTINE VENIPUNCTURE 02/27/2014 0683632 GFR CALC (RESULT ONLY) 02/27/2014 48310 BMP 02/27/2014 74173 DEBRIDE NAIL >6 03/10/2014 53793 URINE DRUG SCREEN (IN-HOUSE ) 04/03/2014 83565 ROUTINE VENIPUNCTURE 05/22/2014 JEFERSON AREVALO 05/22/2014 38965 A1C (IN-HOUSE) 05/22/2014 5955841 GFR CALC (RESULT ONLY) 05/22/2014 65681 CMP 05/22/2014 67223 TSH 05/22/2014 General Nation Gamino, Jeferson 06/20/2014 84503 ROUTINE VENIPUNCTURE 08/28/2014 50140 OXIMETRY 08/28/2014 27260 A1C (IN-HOUSE) 08/28/2014 65839 BMP 08/28/2014 24043 TSH 08/28/2014 30196 OXIMETRY 11/13/2014 12712 ROUTINE VENIPUNCTURE 11/27/2014 16366 XRAY CHEST 2 VIEW 11/27/2014 13009 CMP 11/27/2014 29762 TSH 11/27/2014 53842 CBC 11/27/2014 56508 MYCOPLASMA ANTIBODY 11/27/2014 59085 XRAY KNEE LEFT, 1 OR 2 VIEWS 12/11/2014 52422 XRAY ANKLE R, 2 VIEWS 12/11/2014 72524 ROUTINE VENIPUNCTURE 02/19/2015 83124 ECHO 2D 02/19/2015 22440 AMERITOX 02/19/2015 CARDIOLOG BRADLY KIRBY 02/19/2015 44715 MAGNESIUM 02/19/2015 58099 CBC 02/19/2015 1899390 GFR CALC (RESULT ONLY) 02/19/2015 42062 CMP 02/19/2015 3304152 SPTYPE 02/19/2015 64181 TSH 02/19/2015 77248 ROUTINE VENIPUNCTURE 02/27/2015 84243 CMP 02/27/2015 2369622 GFR CALC (RESULT ONLY) 02/27/2015 Results There is no data. Encounters ACCT No. Visit Date/Time Discharge Status Pt. Type Provider Facility Loc./Unit Complaint [id number] 02/27/2015 09:51:00 02/27/2015 23:59:59 CLS Outpatient HUGOL ETELVINA HARRIS [id number] 02/19/2015 08:48:00 02/19/2015 23:59:59 CLS Outpatient ETELVINA LEONARD APRN [id number] 02/09/2015 08:56:00 02/09/2015 23:59:59 CLS Outpatient LADONNA SALGUERO DO [id number] 12/11/2014 14:31:00 12/11/2014 23:59:59 CLS Outpatient ETELVINA LEONARD APRN [id number] 12/11/2014 14:31:00 12/11/2014 23:59:59 CLS Outpatient SALGUERO DOLADONNA Adriana [id number] 11/27/2014 13:24:00 11/27/2014 23:59:59 CLS Outpatient SALGUERO DO, LADONNA Adriana [id number] 11/27/2014 13:24:00 11/27/2014 23:59:59 CLS Outpatient [employer]OM OPERATOR, ETELVINA L [id number] 11/13/2014 09:52:00 11/13/2014 23:59:59 CLS Outpatient [employer] ROOM OPERATOR, ETELVINA L [id number] 10/23/2014 13:14:00 10/23/2014 23:59:59 CLS Outpatient [employer] ROOM OPERATOR, ETELVINA L [id number] 09/25/2014 13:26:00 09/25/2014 23:59:59 CLS Outpatient [employer] ROOM OPERATOR, ETELVINA L [id number] 08/28/2014 09:22:00 08/28/2014 23:59:59 CLS Outpatient [employer] ROOM OPERATOR, ETELVINA L [id number] 08/28/2014 09:22:00 08/28/2014 23:59:59 CLS Outpatient [employer] ROOM OPERATOR, ETELVINA L [id number] 07/24/2014 09:55:00 07/24/2014 23:59:59 CLS Outpatient SALGUERO DOLADONNA Adriana [id number] 06/19/2014 09:11:00 06/19/2014 23:59:59 CLS Outpatient SALGUERO DOTERERadha Wright [id number] 05/22/2014 13:40:00 05/22/2014 23:59:59 CLS Outpatient [employer] ROOM OPERATOR, ETELVINA L [id number] 05/22/2014 13:40:00 05/22/2014 23:59:59 CLS Outpatient [employer] ROOM OPERATOR, ETELVINA L [id number] 04/03/2014 14:31:00 04/03/2014 23:59:59 CLS Outpatient [employer] ROOM OPERATOR, ETELVINA L [id number] 04/03/2014 14:31:00 04/03/2014 23:59:59 CLS Outpatient SALGUERO DO LADONNA Wright [id number] 03/10/2014 08:26:00 03/10/2014 23:59:59 CLS Outpatient SALGUERO DO, LADONNA Wright [id number] 03/10/2014 08:26:00 03/10/2014 23:59:59 CLS Outpatient LADONNA SALGUERO DO [id number] 02/27/2014 14:59:00 02/27/2014 23:59:59 CLS Outpatient LADONNA SALGUERO DO [id number] 2014 09:28:00 2014 23:59:59 CLS Outpatient BYRON BOSS MD [id number] 2014 09:28:00 2014 23:59:59 CLS Outpatient BYRON BOSS MD [id number] 12/09/2013 07:39:00 12/09/2013 23:59:59 CLS Outpatient LADONNA SALGUERO DO Adriana [id number] 09/22/2013 09:11:00 09/22/2013 23:59:59 CLS Outpatient BYRON BOSS MD [id number] 09/02/2013 07:40:00 09/02/2013 23:59:59 CLS Outpatient NOEMY PRAKASHLADONNA [id number] 08/25/2013 15:49:00 08/25/2013 23:59:59 CLS Outpatient BYRON BOSS MD [id number] 08/17/2013 13:19:00 08/17/2013 23:59:59 CLS Outpatient BYRON BOSS MD [id number] 02/08/2013 10:18:00 02/08/2013 23:59:59 CLS Outpatient BYRON BOSS MD [id number] 12/07/2012 08:34:00 12/07/2012 23:59:59 CLS Outpatient ROMELIA FISCHER MD [id number] 12/02/2012 14:59:00 12/02/2012 23:59:59 CLS Outpatient LAURIE MORA APRN [id number] 11/01/2012 08:50:00 11/01/2012 23:59:59 CLS Outpatient [id number] 10/11/2012 08:39:00 10/11/2012 23:59:59 CLS Outpatient LAURIE MORA APRN [id number] 09/07/2012 09:19:00 09/07/2012 23:59:59 CLS Outpatient LAURIE MORA APRN [id number] 08/10/2013 14:39:00 Document Registration [id number] 06/03/2013 08:05:00 Document Registration [id number] 06/03/2013 08:05:00 Document Registration [id number] 02/08/2013 10:18:00 Document Registration [id number] 12/29/2017 12:20:00 12/29/2017 23:59:59 CLS Outpatient KOFI OLVERA FACTj, ALI FACP CCDS [facility] RAD I25.10 CAD [id number] 12/21/2017 13:54:00 12/21/2017 23:59:59 CLS Outpatient KYLAH CREWS DECAL MAKER [facility] CARD I25.5 CARDIOMYOPATHY [id number] 12/02/2017 08:24:00 12/02/2017 23:59:59 CLS Outpatient KOFI OLVERA FACC, ALI FACP CCDS [facility] RT R06.02 SOB [id number] 12/01/2017 08:04:00 12/01/2017 23:59:59 CLS Outpatient KOFI OLVERA FACC, ALI FACP CCDS [facility] CARD R06.02 SOB [id number] 11/26/2017 11:24:00 11/26/2017 23:59:59 CLS Outpatient KOFI OLVERA FACC, ALI FACP CCDS [facility] CARD R06.02 SOB [id number] 11/09/2017 12:27:00 11/09/2017 23:59:59 CLS Outpatient BILL CLEMENTE DO [facility] RAD ABNORMAL MAMMO [id number] 10/27/2017 12:24:00 10/27/2017 23:59:59 CLS Outpatient BILL CLEMENTE DO [facility] RAD SCREENING [id number] 12/31/2016 10:19:00 12/31/2016 23:59:59 CLS Outpatient ADELOF WASHINGTON DECAL MAKER [facility] RAD AAA [id number] 04/07/2016 08:25:00 04/07/2016 11:40:00 DIS Outpatient JEFERSON GAMINO MD [facility] SDC DYSKINESIA [id number] 04/02/2016 05:42:00 04/02/2016 11:05:00 DIS Outpatient SAHNA OLVERA, JEFERSON Bruner [facility] PREOP DYSKINSIA [id number] 03/11/2016 11:17:00 03/11/2016 23:59:59 CLS Outpatient KOFI OLVERA FACC, BRADLY NIX CCDS [facility] LAB CAD, HYPERLIPIDEMIA [id number] 03/09/2016 16:47:00 03/09/2016 19:30:00 DIS Emergency KARLOS OLVERA, MARLA Ackerman [facility] ER FEVER/DIARRHEA [id number] 03/05/2016 19:11:00 03/05/2016 21:37:00 DIS Emergency ANGELES OLVERA, INES Peter [facility] ER EYE SWELLING/ANKLE PAIN FROM FALL [id number] 12/18/2015 08:53:00 12/18/2015 23:59:59 CLS Outpatient KYLAH CREWSP [facility] RAD ABDOMEN AORTIC ECTASIA [id number] 12/09/2015 10:18:00 12/09/2015 12:47:00 DIS Emergency BETTINA ROMAN MD [facility] ER R EYE SWELLING/PAIN [id number] 12/01/2015 13:15:00 12/01/2015 15:12:00 DIS Emergency MARLA EVERETT MD [facility] ER R EYE SWELLING [id number] 10/07/2015 16:35:00 10/07/2015 18:15:00 DIS Emergency BETTINA ROMAN MD [facility] ER POST OP/BLEEDING [id number] 10/04/2015 10:45:00 10/04/2015 23:59:59 CLS Outpatient BILL CLEMENTE DO A [facility] LAB RESISTANT GUINFECTIONS [id number] 09/13/2015 10:52:00 09/13/2015 23:59:59 CLS Outpatient KYLAH CREWS [facility] LAB HLP,CAD [id number] 07/30/2015 15:05:00 07/30/2015 16:25:00 DIS Emergency HARDEEP DORANTES [facility] ER BACK,HIP PAIN [id number] 07/16/2015 17:17:00 07/16/2015 18:20:00 DIS Emergency THOMPSON QURESHI APRN [facility] ER L ARM, L KNEE INJ [id number] 07/09/2015 13:52:00 07/09/2015 23:59:59 CLS Outpatient AMELIAFREDDY PRAKASH BILL Radha [facility] RAD TRAUMA L 3RD TOE W/ DIABETES [id number] 06/11/2015 09:00:00 06/11/2015 23:59:59 CLS Outpatient KOFI OLVERA FACC, BRADLY NIX CCDS [facility] RAD ABDOMINAL AORTIAL ECTASIA [id number] 04/10/2015 10:25:00 04/10/2015 23:59:59 CLS Outpatient BILL CLEMENTE DO [facility] RAD R ANKLE PAIN, HX OF FX SURGERY [id number] 03/26/2015 11:17:00 03/26/2015 23:59:59 CLS Outpatient BILL CLEMENTE DO [facility] RAD BACK PAIN, [id number] 03/16/2015 10:23:00 03/16/2015 23:59:59 CLS Outpatient BILL CLEMENTE DO [facility] LAB DM II,CAD,HLP [id number] 03/16/2015 10:20:00 03/16/2015 23:59:59 CLS Outpatient KYLAH CREWS L DECAL MAKER [facility] LAB ELECTROLYTE DEPLETION ,CAD,HTN,HLP [id number] 03/01/2015 07:26:00 03/01/2015 23:59:59 CLS Outpatient HUGOLETELVINA L DECAL MAKER [facility] CARD NEAR SYNCOPE EPISODE CAD [id number] 02/19/2015 16:09:00 02/20/2015 13:40:00 DIS Inpatient CAROLYN OLVERA, QUE Bowser [facility] 4TH ORTHOSTATIC HYPOTENSION; ACUTE RENAL FAILURE [id number] 12/30/2014 11:12:00 12/30/2014 14:54:00 DIS Emergency ANGELES OLVERA, INES Peter [facility] ER SOA,DIZZINESS [id number] 11/03/2014 08:58:00 11/03/2014 10:36:00 DIS Emergency DANIELITO SORIANO MD [facility] ER COUGH/CONGESTION [id number] 10/30/2014 14:50:00 10/30/2014 16:25:00 DIS Emergency HARDEEP DORANTES [facility] ER NAUSEATED/BODYACHES/ WEAKNESS EARACHE/RINGING [id number] 10/01/2014 13:53:00 10/01/2014 14:57:00 DIS Emergency FELICIA ENCINAS DO K [facility] ER RECTAL BLEEDING [id number] 09/11/2014 09:46:00 09/11/2014 23:59:59 CLS Outpatient KOFI OLVERA FACC, BRADLY NIX CCDS [facility] CARD ISCHEMIC CARDIO MYOPATHY,CAD [id number] 09/01/2014 10:58:00 09/01/2014 11:40:00 DIS Emergency THOMPSON QURESHI APRN [facility] ER SWOLLEN EYE [id number] 08/31/2014 16:55:00 08/31/2014 18:16:00 DIS Emergency THOMPSON QURESHI APRN [facility] ER NECK SWELLING [id number] 07/10/2014 09:07:00 07/10/2014 11:55:00 DIS Outpatient [facility] [id number] 07/05/2014 07:29:00 07/05/2014 23:59:59 CLS Outpatient JEFERSON GAMINO MD [facility] PREOP DYSPHAGIA [id number] 06/05/2014 08:24:00 06/05/2014 11:43:00 DIS Outpatient [facility] SCREENING;FAMILY HISTORY [id number] 05/31/2014 07:28:00 05/31/2014 23:59:59 CLS Outpatient JEFERSON GAMINO MD [facility] PREOP SCREENING;FAMILY HISTORY [id number] 05/29/2014 12:18:00 05/29/2014 23:59:59 CLS Outpatient KYLAH CREWS [facility] LAB POST HEART CATH [id number] 05/23/2014 06:24:00 05/23/2014 20:30:00 DIS Outpatient KOFI OLVERA FACC, BRADLY NIX CCDS [facility] CATH SHORTNESS OF BREATH CAD ABNORMAL STRESS TEST [id number] 05/08/2014 12:02:00 05/08/2014 23:59:59 CLS Outpatient KYLAH CREWS [facility] CARD CAD [id number] 02/13/2014 12:30:00 02/13/2014 14:00:00 DIS Emergency THOMPSON QURESHI APRN [facility] ER FALL/BACK PAIN [id number] 02/09/2014 19:30:00 02/11/2014 10:45:00 DIS Inpatient LADONNA SALGUERO DO [facility] ICU ACUTE COPD EXACERBATION [id number] 2014 11:48:00 2014 23:59:59 CLS Outpatient KARYN OLVERA, BYRON Bruner [facility] LAB HTN,HYPERLIPADEIA [id number] 12/12/2013 06:44:00 12/12/2013 11:43:00 DIS Outpatient PATRICIA MCDONALD MD [facility] SDC PAINFUL HARDWARE RIGHT ANKLE [id number] 12/05/2013 14:33:00 12/05/2013 23:59:59 CLS Outpatient PATRICIA MCDONALD MD [facility] PREOP PAINFUL HARDWARE RIGHT ANKLE [id number] 11/04/2013 12:22:00 11/04/2013 12:46:00 DIS Emergency MARLA EVERETT MD [facility] ER SUTURE REMOVAL [id number] 10/31/2013 10:42:00 10/31/2013 23:59:59 CLS Outpatient KYLAH CREWS [facility] CARD CAD,HTN [id number] 10/25/2013 08:26:00 10/25/2013 23:59:59 CLS Outpatient KYLAH CREWS [facility] LAB CAD,HEART VALVE DISEASE,HTN,HYPERLIPIDEMIA,COPD [id number] 10/25/2013 18:12:00 10/25/2013 20:10:00 DIS Emergency HARDEEP DORANTES [facility] ER FOOT INJ [id number] 10/21/2013 06:02:00 10/22/2013 11:11:00 DIS Outpatient EDUARDO VILLEGAS MD [facility] INTRINSIC SPHINCTER DEFICIENCY; INCONTINENCE [id number] 10/17/2013 09:25:00 10/17/2013 23:59:59 CLS Outpatient EDUARDO VILLEGAS MD [facility] PREOP INTRINSIC SPHINCTER DEFICIENCY; INCONTINENCE [id number] 08/03/2013 06:00:00 08/03/2013 09:56:00 DIS Outpatient EDUARDO VILLEGAS MD [facility] INCONTINENCE [id number] 07/27/2013 12:35:00 07/27/2013 23:59:59 CLS Outpatient EDUARDO VILLEGAS MD [facility] PREOP INCONTINENCE [id number] 06/13/2013 14:57:00 06/13/2013 23:59:59 CLS Outpatient [id number] 04/18/2013 22:12:00 04/18/2013 23:34:00 DIS Emergency FELICIA ENCINAS DO [facility] ER REACTION TO MEDICATION [id number] 04/17/2013 14:11:00 04/17/2013 15:42:00 DIS Emergency MARCO A VAN MD [facility] ER VOMITING BODY ACHES [id number] 03/26/2015 11:17:00 Document Registration [id number] 01/19/2013 18:23:00 Document Registration [id number] 01/01/2013 15:27:00 Document Registration [id number] 12/26/2012 14:21:00 Document Registration [id number] 11/11/2012 16:20:00 Document Registration [id number] 10/24/2012 23:40:00 Document Registration [id number] 09/19/2012 19:49:00 Document Registration [id number] 09/13/2012 10:47:00 Document Registration [id number] 09/08/2012 15:08:00 Document Registration [id number] 09/04/2012 17:10:00 Document Registration [id number] 06/12/2012 16:25:00 Document Registration [id number] 06/03/2012 10:41:00 Document Registration [id number] 04/16/2012 09:50:00 Document Registration [id number] 03/17/2012 10:58:00 Document Registration [id number] 03/08/2012 10:14:00 Document Registration [id number] 02/01/2012 18:50:00 Document Registration [id number] 01/28/2012 06:00:00 Document Registration [id number] 01/21/2012 09:31:00 Document Registration [id number] 11/11/2011 07:21:00 Document Registration [id number] 10/30/2011 08:09:00 Document Registration [id number] 10/27/2011 07:16:00 Document Registration [id number] 10/24/2011 12:36:00 Document Registration [id number] 10/19/2011 11:22:00 Document Registration [id number] 08/07/2011 10:17:00 Document Registration [id number] 07/14/2011 13:47:00 Document Registration [id number] 07/06/2011 18:30:00 Document Registration [id number] 03/19/2011 05:41:00 Document Registration [id number] 03/13/2011 12:47:00 Document Registration [id number] 02/12/2011 10:12:00 Document Registration [id number] 02/06/2011 08:14:00 Document Registration [id number] 01/22/2011 05:55:00 Document Registration [id number] 01/15/2011 10:27:00 Document Registration [id number] 11/08/2010 10:08:00 Document Registration [id number] 09/05/2010 05:48:00 Document Registration [id number] 09/04/2010 09:00:00 Document Registration [id number] 08/26/2010 07:15:00 Document Registration [id number] 08/07/2010 14:40:00 Document Registration [id number] 08/02/2010 08:36:00 Document Registration [id number] 05/26/2010 12:24:00 Document Registration [id number] 04/14/2010 17:58:00 Document Registration [id number] 03/08/2010 10:03:00 Document Registration [id number] 03/07/2010 09:13:00 Document Registration [id number] 02/21/2010 08:56:00 Document Registration [id number] 08/02/2009 18:35:00 Document Registration
== END 2018-01-07 19:40 | disposition home or self-care (01) ==
LOC: EDUNIT# 16:22 → ER 16:24
DX: S70.12XA Contusion of left thigh, initial encounter (principal); J43.9 Emphysema, unspecified; E78.00 Pure hypercholesterolemia, unspecified; I10 Essential (primary) hypertension; G43.909 Migraine, unspecified, not intractable, without status migrainosus; K21.9 Gastro-esophageal reflux disease without esophagitis; E11.9 Type 2 diabetes mellitus without complications; F41.9 Anxiety disorder, unspecified; F32.9 Major depressive disorder, single episode, unspecified; Z88.0 Allergy status to penicillin; Z88.6 Allergy status to analgesic agent; Z87.440 Personal history of urinary (tract) infections; Z95.5 Presence of coronary angioplasty implant and graft; Z90.711 Acquired absence of uterus with remaining cervical stump; Z88.5 Allergy status to narcotic agent; Z79.84 Long term (current) use of oral hypoglycemic drugs; W19.XXXA Unspecified fall, initial encounter
CPT/HCPCS: 73552; 99283

== ENCOUNTER 2018-02-15 10:20 | Emergency (ER) | payer MEDICAID ==
[~2018-02-15] VITALS: Ht 170.2 cm; Wt 82.6 kg
--- OUTSIDE RECORDS SUMMARY | 2018-02-15 10:28 | XMS REPORT | Continuity of Care Document ---
Author Author [employer] Organization [facility] Address Unknown Phone Unavailable Care Team Providers Care Sand Caster Name Role Phone [employer] Unavailable Unavailable Problems Medications Allergies, Adverse Reactions, Alerts Immunizations Results Vital Signs Encounters Location Location Details Encounter Type Encounter Number Reason For Visit Attending Provider ADM Date DC Date Status Source OUTPATIENT [id number] MARINA HANSENTON 10/07/2016 10/07/2016 Active [facility] O Active [facility] OP SURGERY [id number] KEYANA SANCHEZ Active [facility] Procedures Plan of Care Social History Assessment and Plan Family History Advance Directives Functional Status
--- OUTSIDE RECORDS SUMMARY | 2018-02-15 10:29 | XMS REPORT | Clinical Summary ---
Author Author [facility] Organization [facility] Address Unknown Phone Unavailable Care Team Providers Care Actuarial Director Name Role Phone Osvaldo Palafox DO Unavailable [...] in the Health Information Management department at [phone] for further assistance in locating additional records.[facility] Allergies Active Allergy Reactions Severity Noted Date [...] 12/30/19 Active mg tablet TWICE DAILY 18 Active Problems Problem Noted Date Traumatic arthritis [...] Durbin - referral to Dr. Carlton in [facility] [place] for vaginal pain Gross hematuria 10/24/2015 Overview: [...] CDT Respiratory Rate 16 10/24/2015 3:18 PM SHANK BURNISHER Oxygen Saturation 96% 03/17/2017 10:00 AM CDT Inhaled Oxygen - - Concentration Weight 84.3 kg (185 lb 13.6 oz) 03/17/2017 6:41 AM CDT Height 170.2 cm (5' 7") 03/17/2017 6:41 AM CDT Body Mass Index 29.11 03/17/2017 6:41 AM CDT Plan of Treatment Health Maintenance Due Date Last Done Comments HEPATITIS C SCREENING 1964 PHYSICAL (COMPREHENSIVE) 1971 EXAM PERTUSSIS VACCINE 1975 HIV SCREENING 1979 TETANUS VACCINE 1981 CERVICAL CANCER SCREENING 1994 BREAST CANCER SCREENING 2004 COLORECTAL CANCER 2014 SCREENING INFLUENZA VACCINE 08/30/2018 Implants Implanted Type Area Chemist Food Device Expiration Model / Identifier Date Serial / Lot Right Ankle Plate Results Not on filefrom Last 3 Months
--- OUTSIDE RECORDS SUMMARY | 2018-02-15 10:30 | XMS REPORT | Encounter Summary ---
Author Author [facility] Organization [facility] Address Unknown Phone Unavailable Care Team Providers Care Roguer Name Role Phone Osvaldo Palafox DO Unavailable Hermila Durbin MD Unavailable Rishi Cartwright MD Unavailable Donell Haque PA-C Unavailable Lizet Parsons RN Unavailable Unavailable Kristofer Dowling MD Unavailable Unavailable Osvaldo Palafox DO PCP Reason for Visit * Reason Comments Medication Refill Encounter Details Date Type Department Care Team Description 12/30/2017 Refill [facility] Rishi Cartwright MD Physicians - Urology [address] [facility] [address] [place] [address] [facility] [place] [address] OFFICE BLDG [phone] [place] [address] Social History Tobacco Use Types Packs/Day Years Used Date Current Every Day Smoker Cigarettes 0.5 30 Smokeless Tobacco: Never Used Alcohol Use Drinks/Week oz/Week Comments No Sex Assigned at Date Recorded Not on file as of this encounter Plan of Treatment Not on fileas of this encounter Visit Diagnoses Not on filein this encounter
--- OUTSIDE RECORDS SUMMARY | 2018-02-15 10:56 | XMS REPORT | Continuity of Care Document ---
Author Author [facility] Address Unknown Phone Unavailable Allergies Active [...] Drug Allergy N/A N/A 2014 Yes aspirin [id number] Drug Allergy Mild Nausea 02/19/2015 Yes codeine [id number] Drug Allergy Mild Nausea 02/19/2015 Yes tramadol [id number] Drug Allergy Mild N/V 07/16/2015 Yes Penicillins [id number] Drug Allergy Mild Hives 03/05/2016 Yes amlodipine besylate [id number] Drug Allergy Unknown N/A 03/05/2016 Yes benazepril HCl [id number] Drug Allergy Unknown N/A 03/05/2016 Yes [place]-Fgi-Cab Reductase Inhibitor [id number] Drug Allergy Unknown N/A 04/2016 Medications There [...] Type Ii - Uncomplicated, Uncontrolled 06/27/2008 [facility], ETELVINA L 250.02 Diabetes Mellitus Type Ii - Uncomplicated, Uncontrolled 06/27/2008 MADL PHYSICIAN ASSISTANT PRIMARY CARE, ETELVINA L 250.02 Diabetes Mellitus Type Ii - Uncomplicated, Uncontrolled 06/27/2008 MADL PHYSICIAN ASSISTANT PRIMARY CARE, ETELVINA L 250.02 Diabetes Mellitus Type Ii - Uncomplicated, Uncontrolled 06/27/2008 SALGUERO DO LADNONA K 250.02 Diabetes Mellitus Type Ii - Uncomplicated, Uncontrolled 06/27/2008 NOEMY PRAKASH LADONNA K 250.02 Diabetes Mellitus Type Ii - Uncomplicated, Uncontrolled 06/27/2008 [facility] PHYSICIAN ASSIST[facility]IMARY C[facility], ETELVINA L 250.02 Diabetes Mellitus Type Ii - Uncomplicated, Uncontrolled 06/27/2008 MADL PHYSICIAN ASSISTANT PRIMARY CARE, ETELVINA L 250.02 Diabetes Mellitus Type Ii - Uncomplicated, Uncontrolled 06/27/2008 MADL PHYSICIAN ASSISTANT PRIMARY CARE, ETELVINA L 250.02 Diabetes Mellitus Type Ii - Uncomplicated, Uncontrolled 06/27/2008 MADL PHYSICIAN ASSISTANT PRIMARY CARE, ETELVINA L 250.02 Diabetes Mellitus Type Ii - Uncomplicated, Uncontrolled 06/27/2008 MADL PHYSICIAN ASSISTANT PRIMARY CARE, ETELVINA L 250.02 Diabetes Mellitus Type Ii - Uncomplicated, Uncontrolled 06/27/2008 MADL PHYSICIAN ASSISTANT PRIMARY CARE, ETELVINA L 250.02 Diabetes Mellitus Type Ii - Uncomplicated, Uncontrolled 06/27/2008 MADL PHYSICIAN ASSISTANT PRIMARY CARE, ETELVINA L 250.02 Diabetes Mellitus Type Ii - Uncomplicated, Uncontrolled 06/27/2008 SALGUERO DO, LADONNA K 250.02 Diabetes Mellitus Type Ii - Uncomplicated, Uncontrolled 06/27/2008 SALGUERO DO, LADONNA K 250.02 Diabetes Mellitus Type Ii - Uncomplicated, Uncontrolled 06/27/2008 MADL PHYSICIAN ASSISTANT PRIMARY CARE, ETELVINA L 250.02 Diabetes Mellitus Type Ii - Uncomplicated, Uncontrolled 06/27/2008 SALGUERO DO, LADONNA K 250.02 Diabetes Mellitus Type Ii - Uncomplicated, Uncontrolled 06/27/2008 [facility] PHYSICIAN ASSIST[facility]IMARY [facility], ETELVINA L 250.02 Diabetes Mellitus Type Ii [...] K 250.00 DIABETES MELLITUS 09/27/2008 SALGUERO DO, ALDONNA K 401.1 ESSENTIAL HYPERTENSION BENIGN 09/27/2008 BYRON [...] K 401.1 ESSENTIAL HYPERTENSION BENIGN 09/27/2008 MADL PHYSICIAN ASSIST[facility]IMARY C[facility], ETELVINA L 250.00 DIABETES MELLITUS 09/27/2008 MADL PHYSICIAN ASSISTANT PRIMARY CARE, ETELVINA L 401.1 ESSENTIAL HYPERTENSION BENIGN 09/27/2008 MADL PHYSICIAN ASSISTANT PRIMARY CARE, ETELVINA L 250.00 DIABETES MELLITUS 09/27/2008 MADL PHYSICIAN ASSISTANT PRIMARY CARE, ETELVINA L 401.1 ESSENTIAL HYPERTENSION BENIGN 09/27/2008 MADL PHYSICIAN ASSISTANT PRIMARY CARE, ETELVINA L 250.00 DIABETES MELLITUS 09/27/2008 MADL PHYSICIAN ASSISTANT PRIMARY CARE, ETELVINA L 401.1 ESSENTIAL HYPERTENSION BENIGN 09/27/2008 SALGUERO DO, LADONNA K 250.00 DIABETES MELLITUS 09/27/2008 SALGUERO DO, LADONNA K 401.1 ESSENTIAL HYPERTENSION BENIGN 09/27/2008 SALGUERO DO, LADONNA K 250.00 DIABETES MELLITUS 09/27/2008 SALGUERO DO, LADONNA K 401.1 ESSENTIAL HYPERTENSION BENIGN 09/27/2008 MADL PHYSICIAN ASSISTANT PRIMARY CARE, ETELVINA L 250.00 DIABETES MELLITUS 09/27/2008 MADL PHYSICIAN ASSISTANT PRIMARY CARE, ETELVINA L 401.1 ESSENTIAL HYPERTENSION BENIGN 09/27/2008 MADL PHYSICIAN ASSISTANT PRIMARY CARE, ETELVINA L 250.00 DIABETES MELLITUS 09/27/2008 MADL PHYSICIAN ASSISTANT PRIMARY CARE, ETELVINA L 401.1 ESSENTIAL HYPERTENSION BENIGN 09/27/2008 MADL PHYSICIAN ASSISTANT PRIMARY CARE, ETELVINA L 250.00 DIABETES MELLITUS 09/27/2008 MADL PHYSICIAN ASSISTANT PRIMARY CARE, ETELVINA L 401.1 ESSENTIAL HYPERTENSION BENIGN 09/27/2008 MADL PHYSICIAN ASSISTANT PRIMARY CARE, ETELVINA L 250.00 DIABETES MELLITUS 09/27/2008 MADL PHYSICIAN ASSISTANT PRIMARY CARE, ETELVINA L 401.1 ESSENTIAL HYPERTENSION BENIGN 09/27/2008 MADL PHYSICIAN ASSISTANT PRIMARY CARE, ETELVINA L 250.00 DIABETES MELLITUS 09/27/2008 MADL PHYSICIAN ASSISTANT PRIMARY CARE, ETELVINA L 401.1 ESSENTIAL HYPERTENSION BENIGN 09/27/2008 MADL PHYSICIAN ASSISTANT PRIMARY CARE, ETELVINA L 250.00 DIABETES MELLITUS 09/27/2008 MADL PHYSICIAN ASSISTANT PRIMARY CARE, ETELVINA L 401.1 ESSENTIAL HYPERTENSION BENIGN 09/27/2008 MADL PHYSICIAN ASSISTANT PRIMARY CARE, ETELVINA L 250.00 DIABETES MELLITUS 09/27/2008 MADL PHYSICIAN ASSISTANT PRIMARY CARE, ETELVINA L 401.1 ESSENTIAL HYPERTENSION BENIGN 09/27/2008 SALGUERO DO, LADONAN K 250.00 DIABETES MELLITUS 09/27/2008 SALGUERO DO, LADONNA K 401.1 ESSENTIAL HYPERTENSION BENIGN 09/27/2008 SALGUERO DO, LADONNA K 250.00 DIABETES MELLITUS 09/27/2008 SALGUERO DO, LADONNA K 401.1 ESSENTIAL HYPERTENSION BENIGN 09/27/2008 MADL PHYSICIAN ASSISTANT PRIMARY CARE, ETELVINA L 250.00 DIABETES MELLITUS 09/27/2008 MADL PHYSICIAN ASSISTANT PRIMARY CARE, ETELVINA L 401.1 ESSENTIAL HYPERTENSION BENIGN 09/27/2008 SALGUERO DO, LADONNA K 250.00 DIABETES MELLITUS 09/27/2008 TERE SALGUERO DOA K 401.1 ESSENTIAL HYPERTENSION BENIGN 09/27/2008 MADL PHYSICIAN ASSISTANT PRIMARY CARE, ETELVINA L 250.00 DIABETES MELLITUS 09/27/2008 MADL PHYSICIAN ASSISTANT PRIMARY CARE, ETELVINA L 401.1 ESSENTIAL HYPERTENSION BENIGN 11/01/2008 [...] In Joint Involving Lower Leg 11/01/2008 MADL PHYSICIAN ASSISTANT PRIMARY CARE, ETELVINA L 719.46 Pain In Joint Involving Lower Leg 11/01/2008 MADL PHYSICIAN ASSISTANT PRIMARY CARE, ETELVINA L 719.46 Pain In Joint Involving Lower Leg 11/01/2008 MADL PHYSICIAN ASSISTANT PRIMARY CARE, ETELVINA L 719.46 Pain In Joint Involving Lower Leg 11/01/2008 NOEMY DOLADONNA K 719.46 Pain In Joint Involving Lower Leg 11/01/2008 LADONNA SALGUERO DO K 719.46 Pain In Joint Involving Lower Leg 11/01/2008 MADL PHYSICIAN ASSISTANT PRIMARY CARE, ETELVINA L 719.46 Pain In Joint Involving Lower Leg 11/01/2008 MADL PHYSICIAN ASSISTANT PRIMARY CARE, ETELVINA L 719.46 Pain In Joint Involving Lower Leg 11/01/2008 MADL PHYSICIAN ASSISTANT PRIMARY CARE, ETELVINA L 719.46 Pain In Joint Involving Lower Leg 11/01/2008 MADL PHYSICIAN ASSISTANT PRIMARY CARE, ETELVINA L 719.46 Pain In Joint Involving Lower Leg 11/01/2008 MADL PHYSICIAN ASSISTANT PRIMARY CARE, ETELVINA L 719.46 Pain In Joint Involving Lower Leg 11/01/2008 MADL PHYSICIAN ASSISTANT PRIMARY CARE, ETELVINA L 719.46 Pain In Joint Involving Lower Leg 11/01/2008 MADL PHYSICIAN ASSISTANT PRIMARY CARE, ETELVINA L 719.46 Pain In Joint Involving Lower Leg 11/01/2008 NOEMY DOLADONNA K 719.46 Pain In Joint Involving Lower Leg 11/01/2008 LADONNA SALGUERO DO K 719.46 Pain In Joint Involving Lower Leg 11/01/2008 MADL PHYSICIAN ASSISTANT PRIMARY CARE, ETELVINA L 719.46 Pain In Joint Involving Lower Leg 11/01/2008 NOEMY DOLADONNA K 719.46 Pain In Joint Involving Lower Leg 11/01/2008 MADL PHYSICIAN ASSISTANT PRIMARY CARE, ETELVINA L 719.46 Pain In Joint Involving [...] K 728.85 Spasm Of Muscle 12/12/2008 MADL PHYSICIAN ASSISTANT PRIMARY CARE, ETELVINA L 496 CHRONIC OBSTRUCTIVE PULMONARY DISEASE 12/12/2008 MADL PHYSICIAN ASSISTANT PRIMARY CARE, ETELVINA L 728.85 Spasm Of Muscle 12/12/2008 MADL PHYSICIAN ASSISTANT PRIMARY CARE, ETELVINA L 496 CHRONIC OBSTRUCTIVE PULMONARY DISEASE 12/12/2008 MADL PHYSICIAN ASSISTANT PRIMARY CARE, ETELVINA L 728.85 Spasm Of Muscle 12/12/2008 MADL PHYSICIAN ASSISTANT PRIMARY CARE, ETELVINA L 496 CHRONIC OBSTRUCTIVE PULMONARY DISEASE 12/12/2008 MADL PHYSICIAN ASSISTANT PRIMARY CARE, ETELVINA L 728.85 Spasm Of Muscle 12/12/2008 SALGUERO DO, LADONNA K 496 CHRONIC OBSTRUCTIVE PULMONARY DISEASE 12/12/2008 SALGUERO DO, LADONNA K 728.85 Spasm Of Muscle 12/12/2008 SALGUERO DO, LADONNA K 496 CHRONIC OBSTRUCTIVE PULMONARY DISEASE 12/12/2008 SALGUERO DO, LADONNA K 728.85 Spasm Of Muscle 12/12/2008 MADL PHYSICIAN ASSISTANT PRIMARY CARE, ETELVINA L 496 CHRONIC OBSTRUCTIVE PULMONARY DISEASE 12/12/2008 MADL PHYSICIAN ASSISTANT PRIMARY CARE, ETELVINA L 728.85 Spasm Of Muscle 12/12/2008 MADL PHYSICIAN ASSISTANT PRIMARY CARE, ETELVINA L 496 CHRONIC OBSTRUCTIVE PULMONARY DISEASE 12/12/2008 MADL PHYSICIAN ASSISTANT PRIMARY CARE, ETELVINA L 728.85 Spasm Of Muscle 12/12/2008 MADL PHYSICIAN ASSISTANT PRIMARY CARE, ETELVINA L 496 CHRONIC OBSTRUCTIVE PULMONARY DISEASE 12/12/2008 MADL PHYSICIAN ASSISTANT PRIMARY CARE, ETELVINA L 728.85 Spasm Of Muscle 12/12/2008 MADL PHYSICIAN ASSISTANT PRIMARY CARE, ETELVINA L 496 CHRONIC OBSTRUCTIVE PULMONARY DISEASE 12/12/2008 MADL PHYSICIAN ASSISTANT PRIMARY CARE, ETELVINA L 728.85 Spasm Of Muscle 12/12/2008 MADL PHYSICIAN ASSISTANT PRIMARY CARE, ETELVINA L 496 CHRONIC OBSTRUCTIVE PULMONARY DISEASE 12/12/2008 MADL PHYSICIAN ASSISTANT PRIMARY CARE, ETELVINA L 728.85 Spasm Of Muscle 12/12/2008 MADL PHYSICIAN ASSISTANT PRIMARY CARE, ETELVINA L 496 CHRONIC OBSTRUCTIVE PULMONARY DISEASE 12/12/2008 MADL PHYSICIAN ASSISTANT PRIMARY CARE, ETELVINA L 728.85 Spasm Of Muscle 12/12/2008 MADL PHYSICIAN ASSISTANT PRIMARY CARE, ETELVINA L 496 CHRONIC OBSTRUCTIVE PULMONARY DISEASE 12/12/2008 MADL PHYSICIAN ASSISTANT PRIMARY CARE, ETELVINA L 728.85 Spasm Of Muscle 12/12/2008 SALGUERO DO, LADONNA K 496 CHRONIC OBSTRUCTIVE PULMONARY DISEASE 12/12/2008 SALGUERO DO, LADONNA K 728.85 Spasm Of Muscle 12/12/2008 SALGUERO DO, LADONNA K 496 CHRONIC OBSTRUCTIVE PULMONARY DISEASE 12/12/2008 SALGUERO DO, LADONNA K 728.85 Spasm Of Muscle 12/12/2008 MADL PHYSICIAN ASSISTANT PRIMARY CARE, ETELVINA L 496 CHRONIC OBSTRUCTIVE PULMONARY DISEASE 12/12/2008 MADL PHYSICIAN ASSISTANT PRIMARY CARE, ETELVINA L 728.85 Spasm Of Muscle 12/12/2008 SALGUERO DO, LADONNA K 496 CHRONIC OBSTRUCTIVE PULMONARY DISEASE 12/12/2008 SALGUERO DO, LADONNA K 728.85 Spasm Of Muscle 12/12/2008 MADL PHYSICIAN ASSISTANT PRIMARY CARE, ETELVINA L 496 CHRONIC OBSTRUCTIVE PULMONARY DISEASE 12/12/2008 MADL PHYSICIAN ASSISTANT PRIMARY CARE, ETELVINA L 728.85 Spasm Of Muscle 01/11/2009 [...] 786.50 Chest Pain Or Discomfort 01/11/2009 MADL PHYSICIAN ASSISTANT PRIMARY [facility], ETELVINA L 786.50 Chest Pain Or Discomfort 01/11/2009 MADL PHYSICIAN ASSISTANT PRIMARY CARE, ETELVINA L 786.50 Chest Pain Or Discomfort 01/11/2009 MADL PHYSICIAN ASSISTANT PRIMARY CARE, ETELVINA L 786.50 Chest Pain Or Discomfort 01/11/2009 SALGUERO DO, LADONNA K 786.50 Chest Pain Or Discomfort 01/11/2009 SALGUERO DO, LADONNA K 786.50 Chest Pain Or Discomfort 01/11/2009 MADL PHYSICIAN ASSISTANT PRIMARY CARE, ETELVINA L 786.50 Chest Pain Or Discomfort 01/11/2009 MADL PHYSICIAN ASSISTANT PRIMARY CARE, ETELVINA L 786.50 Chest Pain Or Discomfort 01/11/2009 MADL PHYSICIAN ASSISTANT PRIMARY CARE, ETELVINA L 786.50 Chest Pain Or Discomfort 01/11/2009 MADL PHYSICIAN ASSISTANT PRIMARY CARE, ETELVINA L 786.50 Chest Pain Or Discomfort 01/11/2009 MADL PHYSICIAN ASSISTANT PRIMARY CARE, ETELVINA L 786.50 Chest Pain Or Discomfort 01/11/2009 MADL PHYSICIAN ASSISTANT PRIMARY CARE, ETELVINA L 786.50 Chest Pain Or Discomfort 01/11/2009 MADL PHYSICIAN ASSISTANT PRIMARY CARE, ETELVINA L 786.50 Chest Pain Or Discomfort 01/11/2009 SALGUERO DO, LADONNA K 786.50 Chest Pain Or Discomfort 01/11/2009 SALGUERO DO, LADONNA K 786.50 Chest Pain Or Discomfort 01/11/2009 MADL PHYSICIAN ASSISTANT PRIMARY CARE, ETELVINA L 786.50 Chest Pain Or Discomfort 01/11/2009 SALGUERO DO, LADONNA K 786.50 Chest Pain Or Discomfort 01/11/2009 MADL PHYSICIAN ASSISTANT PRIMARY CARE, ETELVINA L 786.50 Chest Pain Or Discomfort 02/20/2009 MORGAN PHYSICIAN ASSISTANT PRIMARY CARE, LAURIE S 709.9 Dermatology - Skin Condition 02/20/2009 709.9 Dermatology - Skin Condition 02/20/2009 MORGAN PHYSICIAN ASSISTANT PRIMARY CARE, LAURIE S 709.9 Dermatology - Skin Condition 02/20/2009 MORGAN PHYSICIAN ASSISTANT PRIMARY CARE, LAURIE S 709.9 Dermatology - Skin Condition [...] 709.9 Dermatology - Skin Condition 02/20/2009 MADL PHYSICIAN ASSISTANT PRIMARY CARE, ETELVINA L 709.9 Dermatology - Skin Condition 02/20/2009 MADL PHYSICIAN ASSISTANT PRIMARY CARE, ETELVINA L 709.9 Dermatology - Skin Condition 02/20/2009 MADL PHYSICIAN ASSISTANT PRIMARY CARE, ETELVINA L 709.9 Dermatology - Skin Condition 02/20/2009 SALGUERO DO, LADONNA K 709.9 Dermatology - Skin Condition 02/20/2009 SALGUERO DO, LADONNA K 709.9 Dermatology - Skin Condition 02/20/2009 MADL PHYSICIAN ASSISTANT PRIMARY CARE, ETELVINA L 709.9 Dermatology - Skin Condition 02/20/2009 MADL PHYSICIAN ASSISTANT PRIMARY CARE, ETELVINA L 709.9 Dermatology - Skin Condition 02/20/2009 MADL PHYSICIAN ASSISTANT PRIMARY CARE, ETELVINA L 709.9 Dermatology - Skin Condition 02/20/2009 MADL PHYSICIAN ASSISTANT PRIMARY CARE, ETELVINA L 709.9 Dermatology - Skin Condition 02/20/2009 MADL PHYSICIAN ASSISTANT PRIMARY CARE, ETELVINA L 709.9 Dermatology - Skin Condition 02/20/2009 MADL PHYSICIAN ASSISTANT PRIMARY CARE, ETELVINA L 709.9 Dermatology - Skin Condition 02/20/2009 MADL PHYSICIAN ASSISTANT PRIMARY CARE, ETELVINA L 709.9 Dermatology - Skin Condition 02/20/2009 SALGUERO DO, LADONNA K 709.9 Dermatology - Skin Condition 02/20/2009 SALGUERO DO, LADONNA K 709.9 Dermatology - Skin Condition 02/20/2009 MADL PHYSICIAN ASSISTANT PRIMARY CARE, ETELVINA L 709.9 Dermatology - Skin Condition 02/20/2009 SALGUERO DO, LADONNA K 709.9 Dermatology - Skin Condition 02/20/2009 MADL PHYSICIAN ASSISTANT PRIMARY CARE, ETELVINA L 709.9 Dermatology - Skin Condition [...] Disorders Of Function Of Stomach 04/05/2009 MADL PHYSICIAN ASSISTANT PRIMARY CARE, ETELVINA L 536.8 Dyspepsia And Other Specified Disorders Of Function Of Stomach 04/05/2009 MADL PHYSICIAN ASSISTANT PRIMARY CARE, ETELVINA L 536.8 Dyspepsia And Other Specified Disorders Of Function Of Stomach 04/05/2009 MADL PHYSICIAN ASSISTANT PRIMARY CARE, ETELVINA L 536.8 Dyspepsia And Other Specified Disorders Of Function Of Stomach 04/05/2009 SALGUERO DO, LADONNA K 536.8 Dyspepsia And Other Specified Disorders Of Function Of Stomach 04/05/2009 SALGUERO DO, LADONNA K 536.8 Dyspepsia And Other Specified Disorders Of Function Of Stomach 04/05/2009 MADL PHYSICIAN ASSISTANT PRIMARY CARE ETELVINA L 536.8 Dyspepsia And Other Specified Disorders Of Function Of Stomach 04/05/2009 MADL PHYSICIAN ASSISTANT PRIMARY CARE, ETELVINA L 536.8 Dyspepsia And Other Specified Disorders Of Function Of Stomach 04/05/2009 MADL PHYSICIAN ASSISTANT PRIMARY CARE, ETELVINA L 536.8 Dyspepsia And Other Specified Disorders Of Function Of Stomach 04/05/2009 MADL PHYSICIAN ASSISTANT PRIMARY CARE, ETELVINA L 536.8 Dyspepsia And Other Specified Disorders Of Function Of Stomach 04/05/2009 MADL PHYSICIAN ASSISTANT PRIMARY CARE, ETELVINA L 536.8 Dyspepsia And Other Specified Disorders Of Function Of Stomach 04/05/2009 MADL PHYSICIAN ASSISTANT PRIMARY CARE, ETELVINA L 536.8 Dyspepsia And Other Specified Disorders Of Function Of Stomach 04/05/2009 MADL PHYSICIAN ASSISTANT PRIMARY CARE, ETELVINA L 536.8 Dyspepsia And Other Specified Disorders Of Function Of Stomach 04/05/2009 SALGUERO DO, LADONNA K 536.8 Dyspepsia And Other Specified Disorders Of Function Of Stomach 04/05/2009 SALGUERO DO, LADONNA K 536.8 Dyspepsia And Other Specified Disorders Of Function Of Stomach 04/05/2009 MADL PHYSICIAN ASSISTANT PRIMARY CARE, ETELVINA L 536.8 Dyspepsia And Other Specified Disorders Of Function Of Stomach 04/05/2009 SALGUERO DO, LADONNA K 536.8 Dyspepsia And Other Specified Disorders Of Function Of Stomach 04/05/2009 MADL PHYSICIAN ASSISTANT PRIMARY CARE, ETELVINA L 536.8 Dyspepsia And Other Specified [...] DO, LADONNA K 787.02 Nausea 05/09/2009 MADL [facility]IC[facility], ETELVINA L 327.52 Organic Sleep-related Leg Cramps 05/09/2009 MADL PHYSICIAN ASSIST[facility]IMARY C[facility], ETELVINA L 787.02 Nausea 05/09/2009 MADL PHYSICIAN ASSISTANT PRIMARY CARE, ETELVINA L 327.52 Organic Sleep-related Leg Cramps 05/09/2009 MADL PHYSICIAN ASSISTANT PRIMARY CARE, ETELVINA L 787.02 Nausea 05/09/2009 MADL PHYSICIAN ASSISTANT PRIMARY CARE, ETELVINA L 327.52 Organic Sleep-related Leg Cramps 05/09/2009 MADL PHYSICIAN ASSISTANT PRIMARY CARE, ETELVINA L 787.02 Nausea 05/09/2009 SALGUERO DO, LADONNA K 327.52 Organic Sleep-related Leg Cramps 05/09/2009 SALGUERO DO, LADONNA K 787.02 Nausea 05/09/2009 SALGUERO DO, LADONNA K 327.52 Organic Sleep-related Leg Cramps 05/09/2009 SALGUERO DO, LADONNA K 787.02 Nausea 05/09/2009 MADL [facility]YSICIAN ASSISTANT PRIMARY CARE, ETELVINA L 327.52 Organic Sleep-related Leg Cramps 05/09/2009 MADL PHYSICIAN ASSISTANT PRIMARY CARE, ETELVINA L 787.02 Nausea 05/09/2009 MADL PHYSICIAN ASSISTANT PRIMARY CARE, ETELVINA L 327.52 Organic Sleep-related Leg Cramps 05/09/2009 MADL PHYSICIAN ASSISTANT PRIMARY CARE, ETELVINA L 787.02 Nausea 05/09/2009 MADL PHYSICIAN ASSISTANT PRIMARY CARE, ETELVINA L 327.52 Organic Sleep-related Leg Cramps 05/09/2009 MADL PHYSICIAN ASSISTANT PRIMARY CARE, ETELVINA L 787.02 Nausea 05/09/2009 MADL PHYSICIAN ASSISTANT PRIMARY CARE, ETELVINA L 327.52 Organic Sleep-related Leg Cramps 05/09/2009 MADL PHYSICIAN ASSISTANT PRIMARY CARE, ETELVINA L 787.02 Nausea 05/09/2009 MADL PHYSICIAN ASSISTANT PRIMARY CARE, ETELVINA L 327.52 Organic Sleep-related Leg Cramps 05/09/2009 MADL PHYSICIAN ASSISTANT PRIMARY CARE, ETELVINA L 787.02 Nausea 05/09/2009 MADL PHYSICIAN ASSISTANT PRIMARY CARE, ETELVINA L 327.52 Organic Sleep-related Leg Cramps 05/09/2009 MADL PHYSICIAN ASSISTANT PRIMARY CARE, ETELVINA L 787.02 Nausea 05/09/2009 MADL PHYSICIAN ASSISTANT PRIMARY CARE, ETELVINA L 327.52 Organic Sleep-related Leg Cramps 05/09/2009 MADL PHYSICIAN ASSISTANT PRIMARY CARE, ETELVINA L 787.02 Nausea 05/09/2009 SALGUERO DO, LADONNA K 327.52 Organic Sleep-related Leg Cramps 05/09/2009 SALGUERO DO, LADONNA K 787.02 Nausea 05/09/2009 SALGUERO DO, LADONNA K 327.52 Organic Sleep-related Leg Cramps 05/09/2009 SALGUERO DO, LADONNA K 787.02 Nausea 05/09/2009 M[facility]L PHYSICIAN ASSISTANT PRIMARY CARE, ETELVINA L 327.52 Organic Sleep-related Leg Cramps 05/09/2009 MADL PHYSICIAN ASSISTANT PRIMARY CARE, ETELVINA L 787.02 Nausea 05/09/2009 SALGUERO DO, LADONNA K 327.52 Organic Sleep-related Leg Cramps 05/09/2009 SALGUERO DO, LADONNA K 787.02 Nausea 05/09/2009 M[facility]L PHYSICIAN ASSISTANT PRIMARY CARE, ETELVINA L 327.52 Organic Sleep-related Leg Cramps 05/09/2009 M[facility]L PHYSICIAN ASSISTANT PRIMARY CARE, ETELVINA L 787.02 Nausea 07/02/2009 LAURIE MORA [...] BOSS MD 780.4 Dizziness And Giddiness 07/02/2009 LADONNA [...] K 780.4 Dizziness And Giddiness 07/02/2009 [facility]YSIC[facility] PRIMARY [facility], ETELVINA L 465.9 Acute Upper Respiratory Infections Of Unspecified Site 07/02/2009 MADL PHYSICIAN ASSISTANT PRIMARY CARE, ETELVINA L 780.4 Dizziness And Giddiness 07/02/2009 M[facility]L PHYSICIAN ASSISTANT PRIMARY CARE, ETELVINA L 465.9 Acute Upper Respiratory Infections Of Unspecified Site 07/02/2009 MADL PHYSICIAN ASSISTANT PRIMARY CARE, ETELVINA L 780.4 Dizziness And Giddiness 07/02/2009 MADL PHYSICIAN ASSISTANT PRIMARY CARE, ETELVINA L 465.9 Acute Upper Respiratory Infections Of Unspecified Site 07/02/2009 MADL PHYSICIAN ASSISTANT PRIMARY CARE, ETELVINA L 780.4 Dizziness And Giddiness 07/02/2009 SALGUERO DO, LADONNA K 465.9 Acute Upper Respiratory Infections Of Unspecified Site 07/02/2009 SALGUERO DO, LADONNA K 780.4 Dizziness And Giddiness 07/02/2009 SALGUERO DO, LADONNA K 465.9 Acute Upper Respiratory Infections Of Unspecified Site 07/02/2009 SALGUERO DO, LADONNA K 780.4 Dizziness And Giddiness 07/02/2009 M[facility]L PHYSICIAN ASSISTANT PRIMARY CARE, ETELVINA L 465.9 Acute Upper Respiratory Infections Of Unspecified Site 07/02/2009 MADL PHYSICIAN ASSISTANT PRIMARY CARE, ETELVINA L 780.4 Dizziness And Giddiness 07/02/2009 MADL PHYSICIAN ASSISTANT PRIMARY CARE, ETELVINA L 465.9 Acute Upper Respiratory Infections Of Unspecified Site 07/02/2009 MADL PHYSICIAN ASSISTANT PRIMARY CARE, ETELVINA L 780.4 Dizziness And Giddiness 07/02/2009 MADL PHYSICIAN ASSISTANT PRIMARY CARE, ETELVINA L 465.9 Acute Upper Respiratory Infections Of Unspecified Site 07/02/2009 MADL PHYSICIAN ASSISTANT PRIMARY CARE, ETELVINA L 780.4 Dizziness And Giddiness 07/02/2009 MADL PHYSICIAN ASSISTANT PRIMARY CARE, ETELVINA L 465.9 Acute Upper Respiratory Infections Of Unspecified Site 07/02/2009 MADL PHYSICIAN ASSISTANT PRIMARY CARE, ETELVINA L 780.4 Dizziness And Giddiness 07/02/2009 MADL PHYSICIAN ASSISTANT PRIMARY CARE, ETELVINA L 465.9 Acute Upper Respiratory Infections Of Unspecified Site 07/02/2009 MADL PHYSICIAN ASSISTANT PRIMARY CARE, ETELVINA L 780.4 Dizziness And Giddiness 07/02/2009 MADL PHYSICIAN ASSISTANT PRIMARY CARE, ETELVINA L 465.9 Acute Upper Respiratory Infections Of Unspecified Site 07/02/2009 MADL PHYSICIAN ASSISTANT PRIMARY CARE, ETELVINA L 780.4 Dizziness And Giddiness 07/02/2009 MADL PHYSICIAN ASSISTANT PRIMARY CARE, ETELVINA L 465.9 Acute Upper Respiratory Infections Of Unspecified Site 07/02/2009 MADL PHYSICIAN ASSISTANT PRIMARY CARE, ETELVINA L 780.4 Dizziness And Giddiness 07/02/2009 SALGUERO DO, LADONNA K 465.9 Acute Upper Respiratory Infections Of Unspecified Site 07/02/2009 SALGUERO DO, LADONNA K 780.4 Dizziness And Giddiness 07/02/2009 SALGUERO DO, LADONNA K 465.9 Acute Upper Respiratory Infections Of Unspecified Site 07/02/2009 SALGUERO DO, LADONNA K 780.4 Dizziness And Giddiness 07/02/2009 MADL PHYSICIAN ASSISTANT PRIMARY CARE, ETELVINA L 465.9 Acute Upper Respiratory Infections Of Unspecified Site 07/02/2009 MADL PHYSICIAN ASSISTANT PRIMARY CARE, ETELVINA L 780.4 Dizziness And Giddiness 07/02/2009 SALGUERO DO, LADONNA K 465.9 Acute Upper Respiratory Infections Of Unspecified Site 07/02/2009 SALGUERO DO, LADONNA K 780.4 Dizziness And Giddiness 07/02/2009 MADL PHYSICIAN ASSISTANT PRIMARY CARE, ETELVINA L 465.9 Acute Upper Respiratory Infections Of Unspecified Site 07/02/2009 MADL PHYSICIAN ASSISTANT PRIMARY CARE, ETELVINA L 780.4 Dizziness And Giddiness 08/10/2009 [facility], LAURIE S 780.52 INSOMNIA UNSPECIFIED 08/10/2009 [facility], LAURIE S 783.1 Abnormal Weight Gain 08/10/2009 780.52 Insomnia Unspecified 08/10/2009 783.1 Abnormal Weight Gain 08/10/2009 [facility], LAURIE S 780.52 Insomnia Unspecified 08/10/2009 [facility], LAURIE S 783.1 Abnormal Weight Gain 08/10/2009 [facility] ASS[facility], LAURIE S 780.52 Insomnia Unspecified 08/10/2009 [facility]IC[facility] ASS[facility], LAURIE S 783.1 Abnormal Weight Gain 08/10/2009 [...] K 783.1 Abnormal Weight Gain 08/10/2009 [facility], ETELVINA L 780.52 Insomnia Unspecified 08/10/2009 [facility], ETELVINA L 783.1 Abnormal Weight Gain 08/10/2009 [facility], ETELVINA L 780.52 Insomnia Unspecified 08/10/2009 [facility], ETELVINA L 783.1 Abnormal Weight Gain 08/10/2009 [facility], ETELVINA L 780.52 Insomnia Unspecified 08/10/2009 [facility], ETELVINA L 783.1 Abnormal Weight Gain 08/10/2009 SALGUERO DO, LADONNA K 780.52 Insomnia Unspecified 08/10/2009 SALGUERO DO, LADONNA K 783.1 Abnormal Weight Gain 08/10/2009 SALGUERO DO, LADONNA K 780.52 Insomnia Unspecified 08/10/2009 SALGUERO DO, LADONNA K 783.1 Abnormal Weight Gain 08/10/2009 [facility], ETELVINA L 780.52 Insomnia Unspecified 08/10/2009 [facility], ETELVINA L 783.1 Abnormal Weight Gain 08/10/2009 [facility], ETELVINA L 780.52 Insomnia Unspecified 08/10/2009 [facility], ETELVINA L 783.1 Abnormal Weight Gain 08/10/2009 [facility], ETELVINA L 780.52 Insomnia Unspecified 08/10/2009 [facility], ETELVINA L 783.1 Abnormal Weight Gain 08/10/2009 [facility] PHYSICIAN ASSISTANT PRIMARY CARE, ETELVINA L 780.52 Insomnia Unspecified 08/10/2009 MADL PHYSICIAN ASSISTANT PRIMARY CARE, ETELVINA L 783.1 Abnormal Weight Gain 08/10/2009 MADL PHYSICIAN ASSISTANT PRIMARY CARE, ETELVINA L 780.52 Insomnia Unspecified 08/10/2009 MADL PHYSICIAN ASSISTANT PRIMARY CARE, ETELVINA L 783.1 Abnormal Weight Gain 08/10/2009 MADL PHYSICIAN ASSISTANT PRIMARY CARE, ETELVINA L 780.52 Insomnia Unspecified 08/10/2009 MADL PHYSICIAN ASSISTANT PRIMARY CARE, ETELVINA L 783.1 Abnormal Weight Gain 08/10/2009 MADL PHYSICIAN ASSISTANT PRIMARY CARE, ETELVINA L 780.52 Insomnia Unspecified 08/10/2009 MADL PHYSICIAN ASSISTANT PRIMARY CARE, ETELVINA L 783.1 Abnormal Weight Gain 08/10/2009 SALGUERO DO, LADONNA K 780.52 Insomnia Unspecified 08/10/2009 SALGUERO DO, LADONNA K 783.1 Abnormal Weight Gain 08/10/2009 SALGUERO DO, LADONNA K 780.52 Insomnia Unspecified 08/10/2009 SALGUERO DO, LADONNA K 783.1 Abnormal Weight Gain 08/10/2009 MADL PHYSICIAN ASSISTANT PRIMARY CARE, ETELVINA L 780.52 Insomnia Unspecified 08/10/2009 MADL PHYSICIAN ASSISTANT PRIMARY CARE, ETELVINA L 783.1 Abnormal Weight Gain 08/10/2009 SALGUERO DO, LADONNA K 780.52 Insomnia Unspecified 08/10/2009 SALGUERO DO, LADONNA K 783.1 Abnormal Weight Gain 08/10/2009 MADL PHYSICIAN ASSISTANT PRIMARY CARE, ETELVINA L 780.52 Insomnia Unspecified 08/10/2009 MADL PHYSICIAN ASSISTANT PRIMARY CARE, ETELVINA L 783.1 Abnormal Weight Gain 09/04/2009 LAURIE MORA APRN S 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 09/04/2009 LAURIE MORA APRN S 780.79 Feelings Of Weakness 09/04/2009 LAURIE MORA APRN S 786.05 shortness of breath 09/04/2009 LAURIE MORA APRN S 786.2 Cough 09/04/2009 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 09/04/2009 780.79 Feelings Of Weakness 09/04/2009 786.05 Shortness Of Breath 09/04/2009 786.2 Cough 09/04/2009 MORGAN PHYSICIAN ASSISTANT PRIMARY CAREPALOMA BowserNDA S 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 09/04/2009 MORGAN PHYSICIAN ASSISTANT PRIMARY CARE, LAURIE S 780.79 Feelings Of Weakness 09/04/2009 MORGAN PHYSICIAN ASSISTANT PRIMARY CARE, LAURIE S 786.05 Shortness Of Breath 09/04/2009 MORGAN PHYSICIAN ASSISTANT PRIMARY CARE, LAURIE S 786.2 Cough 09/04/2009 MORGAN PHYSICIAN ASSISTANT PRIMARY CARE, LAURIE S 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 09/04/2009 MORGAN PHYSICIAN ASSISTANT PRIMARY CARE, LAURIE S 780.79 Feelings Of Weakness 09/04/2009 MORGAN PHYSICIAN ASSISTANT PRIMARY CAREPALOMA BowserNDA S 786.05 Shortness Of Breath 09/04/2009 [...] DO, LADONNA K 786.2 Cough 09/04/2009 MADL PHYSICIAN ASSISTANT PRIMARY CARE, ETELVINA L 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 09/04/2009 MADL PHYSICIAN ASSISTANT PRIMARY CARE, ETELVINA L 780.79 Feelings Of Weakness 09/04/2009 MADL PHYSICIAN ASSISTANT PRIMARY CARE, ETELVINA L 786.05 Shortness Of Breath 09/04/2009 MADL PHYSICIAN ASSISTANT PRIMARY CARE, ETELVINA L 786.2 Cough 09/04/2009 MADL PHYSICIAN ASSISTANT PRIMARY CARE, ETELVINA L 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 09/04/2009 MADL PHYSICIAN ASSISTANT PRIMARY CARE, ETELVINA L 780.79 Feelings Of Weakness 09/04/2009 MADL PHYSICIAN ASSISTANT PRIMARY CARE, ETELVINA L 786.05 Shortness Of Breath 09/04/2009 MADL PHYSICIAN ASSISTANT PRIMARY CARE, ETELVINA L 786.2 Cough 09/04/2009 MADL PHYSICIAN ASSISTANT PRIMARY CARE, ETELVINA L 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 09/04/2009 MADL PHYSICIAN ASSISTANT PRIMARY CARE, ETELVINA L 780.79 Feelings Of Weakness 09/04/2009 MADL PHYSICIAN ASSISTANT PRIMARY CARE, ETELVINA L 786.05 Shortness Of Breath 09/04/2009 MADL PHYSICIAN ASSISTANT PRIMARY CARE, ETELVINA L 786.2 Cough 09/04/2009 SALGUERO DO, [...] DO, LADONNA K 786.2 Cough 09/04/2009 MADL PHYSICIAN ASSISTANT PRIMARY CARE, ETELVINA L 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 09/04/2009 MADL PHYSICIAN ASSISTANT PRIMARY CARE, ETELVINA L 780.79 Feelings Of Weakness 09/04/2009 MADL PHYSICIAN ASSISTANT PRIMARY CARE, ETELVINA L 786.05 Shortness Of Breath 09/04/2009 MADL PHYSICIAN ASSISTANT PRIMARY CARE, ETELVINA L 786.2 Cough 09/04/2009 MADL PHYSICIAN ASSISTANT PRIMARY CARE, ETELVINA L 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 09/04/2009 MADL PHYSICIAN ASSISTANT PRIMARY CARE, ETELVINA L 780.79 Feelings Of Weakness 09/04/2009 MADL PHYSICIAN ASSISTANT PRIMARY CARE, ETELVINA L 786.05 Shortness Of Breath 09/04/2009 MADL PHYSICIAN ASSISTANT PRIMARY CARE, ETELVINA L 786.2 Cough 09/04/2009 MADL PHYSICIAN ASSISTANT PRIMARY CARE, ETELVINA L 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 09/04/2009 MADL PHYSICIAN ASSISTANT PRIMARY CARE, ETELVINA L 780.79 Feelings Of Weakness 09/04/2009 MADL PHYSICIAN ASSISTANT PRIMARY CARE, ETELVINA L 786.05 Shortness Of Breath 09/04/2009 MADL PHYSICIAN ASSISTANT PRIMARY CARE, ETELVINA L 786.2 Cough 09/04/2009 MADL PHYSICIAN ASSISTANT PRIMARY CARE, ETELVINA L 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 09/04/2009 MADL PHYSICIAN ASSISTANT PRIMARY CARE, ETELVINA L 780.79 Feelings Of Weakness 09/04/2009 MADL PHYSICIAN ASSISTANT PRIMARY CARE, ETELVINA L 786.05 Shortness Of Breath 09/04/2009 MADL PHYSICIAN ASSISTANT PRIMARY CARE, ETELVINA L 786.2 Cough 09/04/2009 MADL PHYSICIAN ASSISTANT PRIMARY CARE, ETELVINA L 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 09/04/2009 MADL PHYSICIAN ASSISTANT PRIMARY CARE, ETELVINA L 780.79 Feelings Of Weakness 09/04/2009 MADL PHYSICIAN ASSISTANT PRIMARY CARE, ETELVINA L 786.05 Shortness Of Breath 09/04/2009 MADL PHYSICIAN ASSISTANT PRIMARY CARE, ETELVINA L 786.2 Cough 09/04/2009 MADL PHYSICIAN ASSISTANT PRIMARY CARE, ETELVINA L 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 09/04/2009 MADL PHYSICIAN ASSISTANT PRIMARY CARE, ETELVINA L 780.79 Feelings Of Weakness 09/04/2009 MADL PHYSICIAN ASSISTANT PRIMARY CARE, ETELVINA L 786.05 Shortness Of Breath 09/04/2009 MADL PHYSICIAN ASSISTANT PRIMARY CARE, ETELVINA L 786.2 Cough 09/04/2009 MADL PHYSICIAN ASSISTANT PRIMARY CARE, ETELVINA L 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 09/04/2009 MADL PHYSICIAN ASSISTANT PRIMARY CARE, ETELVINA L 780.79 Feelings Of Weakness 09/04/2009 MADL PHYSICIAN ASSISTANT PRIMARY CARE, ETELVINA L 786.05 Shortness Of Breath 09/04/2009 MADL PHYSICIAN ASSISTANT PRIMARY CARE, ETELVINA L 786.2 Cough 09/04/2009 SALGUERO DO, LADONNA K 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 09/04/2009 SALGUERO DO, LADONAN K 780.79 Feelings Of Weakness 09/04/2009 SALGUERO DO, LADONNA K 786.05 Shortness Of Breath 09/04/2009 SALGUERO DO, LADONNA K 786.2 Cough 09/04/2009 SALGUERO DO, LADONNA K 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 09/04/2009 SALGUERO DO, LADONNA K 780.79 Feelings Of Weakness 09/04/2009 SALGUERO DO, LADONNA K 786.05 Shortness Of Breath 09/04/2009 SALGUERO DO, LADONNA K 786.2 Cough 09/04/2009 MADL PHYSICIAN ASSISTANT PRIMARY CARE, ETELVINA L 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 09/04/2009 MADL PHYSICIAN ASSISTANT PRIMARY CARE, ETELVINA L 780.79 Feelings Of Weakness 09/04/2009 MADL PHYSICIAN ASSISTANT PRIMARY CARE, ETELVINA L 786.05 Shortness Of Breath 09/04/2009 MADL PHYSICIAN ASSISTANT PRIMARY CARE, ETELVINA L 786.2 Cough 09/04/2009 SALGUERO DO, LADONNA K 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 09/04/2009 SALGUERO DO, LADONNA K 780.79 Feelings Of Weakness 09/04/2009 SALGUERO DO, LADONNA K 786.05 Shortness Of Breath 09/04/2009 SALGUERO DO, LADONNA K 786.2 Cough 09/04/2009 MADL PHYSICIAN ASSISTANT PRIMARY CARE, ETELVINA L 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 09/04/2009 MADL PHYSICIAN ASSISTANT PRIMARY CARE, ETELVINA L 780.79 Feelings Of Weakness 09/04/2009 MADL PHYSICIAN ASSISTANT PRIMARY CARE, ETELVINA L 786.05 Shortness Of Breath 09/04/2009 MADL PHYSICIAN ASSISTANT PRIMARY CARE, ETELVINA L 786.2 Cough 09/07/2009 MORGAN PHYSICIAN ASSISTANT PRIMARY CARE, LAURIE S 079.99 Viral Syndrome 09/07/2009 079.99 Viral Syndrome 09/07/2009 MORGAN PHYSICIAN ASSISTANT PRIMARY CARE, LAURIE S 079.99 Viral Syndrome 09/07/2009 MORGAN PHYSICIAN ASSISTANT PRIMARY CARE, LAURIE S 079.99 Viral Syndrome 09/07/2009 ROMELIA [...] PRAKASHA K 079.99 Viral Syndrome 09/07/2009 MADL PHYSICIAN ASSISTANT PRIMARY CARE, ETELVINA L 079.99 Viral Syndrome 09/07/2009 MADL PHYSICIAN ASSISTANT PRIMARY CARE, ETELVINA L 079.99 Viral Syndrome 09/07/2009 MADL PHYSICIAN ASSISTANT PRIMARY CARE, ETELVINA L 079.99 Viral Syndrome 09/07/2009 SALGUERO DO, LADONNA K 079.99 Viral Syndrome 09/07/2009 SALGUERO DO, LADONNA K 079.99 Viral Syndrome 09/07/2009 MADL PHYSICIAN ASSISTANT PRIMARY CARE, ETELVINA L 079.99 Viral Syndrome 09/07/2009 MADL PHYSICIAN ASSISTANT PRIMARY CARE, ETELVINA L 079.99 Viral Syndrome 09/07/2009 MADL PHYSICIAN ASSISTANT PRIMARY CARE, ETELVINA L 079.99 Viral Syndrome 09/07/2009 MADL PHYSICIAN ASSISTANT PRIMARY CARE, ETELVINA L 079.99 Viral Syndrome 09/07/2009 MADL PHYSICIAN ASSISTANT PRIMARY CARE, ETELVINA L 079.99 Viral Syndrome 09/07/2009 MADL PHYSICIAN ASSISTANT PRIMARY CARE, ETELVINA L 079.99 Viral Syndrome 09/07/2009 MADL PHYSICIAN ASSISTANT PRIMARY CARE, ETELVINA L 079.99 Viral Syndrome 09/07/2009 SALGUERO DO, LADONNA K 079.99 Viral Syndrome 09/07/2009 SALGUERO DO, LADONNA K 079.99 Viral Syndrome 09/07/2009 MADL PHYSICIAN ASSISTANT PRIMARY CARE, ETELVINA L 079.99 Viral Syndrome 09/07/2009 SALGUERO DO, LADONNA K 079.99 Viral Syndrome 09/07/2009 MADL PHYSICIAN ASSISTANT PRIMARY CARE, ETELVINA L 079.99 Viral Syndrome 10/12/2009 LAURIE [...] DO, LADONNA K 799.02 Hypoxemia 10/12/2009 MADL PHYSICIAN ASSISTANT PRIMARY CARE ETELVINA L 719.58 Stiffness Of Joint, Not Elsewhere Classified, Other Specified Sites 10/12/2009 MADL PHYSICIAN ASSISTANT PRIMARY CARE, ETELVINA L 799.02 Hypoxemia 10/12/2009 MADL PHYSICIAN ASSISTANT PRIMARY CARE, ETELVINA L 719.58 Stiffness Of Joint, Not Elsewhere Classified, Other Specified Sites 10/12/2009 MADL PHYSICIAN ASSISTANT PRIMARY CARE, ETELVINA L 799.02 Hypoxemia 10/12/2009 MADL PHYSICIAN ASSISTANT PRIMARY CARE, ETELVINA L 719.58 Stiffness Of Joint, Not Elsewhere Classified, Other Specified Sites 10/12/2009 MADL PHYSICIAN ASSISTANT PRIMARY CARE, ETELVINA L 799.02 Hypoxemia 10/12/2009 SALGUERO DO, LADONNA K 719.58 Stiffness Of Joint, Not Elsewhere Classified, Other Specified Sites 10/12/2009 SALGUERO DO, LADONNA K 799.02 Hypoxemia 10/12/2009 SALGUERO DO, LADONNA K 719.58 Stiffness Of Joint, Not Elsewhere Classified, Other Specified Sites 10/12/2009 SALGUERO DO, LADONNA K 799.02 Hypoxemia 10/12/2009 MADL PHYSICIAN ASSISTANT PRIMARY CARE, ETELVINA L 719.58 Stiffness Of Joint, Not Elsewhere Classified, Other Specified Sites 10/12/2009 MADL PHYSICIAN ASSISTANT PRIMARY CARE, ETELVINA L 799.02 Hypoxemia 10/12/2009 MADL PHYSICIAN ASSISTANT PRIMARY CARE, ETELVINA L 719.58 Stiffness Of Joint, Not Elsewhere Classified, Other Specified Sites 10/12/2009 MADL PHYSICIAN ASSISTANT PRIMARY CARE, ETELVINA L 799.02 Hypoxemia 10/12/2009 MADL PHYSICIAN ASSISTANT PRIMARY CARE, ETELVINA L 719.58 Stiffness Of Joint, Not Elsewhere Classified, Other Specified Sites 10/12/2009 MADL PHYSICIAN ASSISTANT PRIMARY CARE, ETELVINA L 799.02 Hypoxemia 10/12/2009 MADL PHYSICIAN ASSISTANT PRIMARY CARE, ETELVINA L 719.58 Stiffness Of Joint, Not Elsewhere Classified, Other Specified Sites 10/12/2009 MADL PHYSICIAN ASSISTANT PRIMARY CARE, ETELVINA L 799.02 Hypoxemia 10/12/2009 MADL PHYSICIAN ASSISTANT PRIMARY CARE, ETELVINA L 719.58 Stiffness Of Joint, Not Elsewhere Classified, Other Specified Sites 10/12/2009 MADL PHYSICIAN ASSISTANT PRIMARY CARE, ETELVINA L 799.02 Hypoxemia 10/12/2009 MADL PHYSICIAN ASSISTANT PRIMARY CARE, ETELVINA L 719.58 Stiffness Of Joint, Not Elsewhere Classified, Other Specified Sites 10/12/2009 MADL PHYSICIAN ASSISTANT PRIMARY CARE, ETELVINA L 799.02 Hypoxemia 10/12/2009 MADL PHYSICIAN ASSISTANT PRIMARY CARE, ETELVINA L 719.58 Stiffness Of Joint, Not Elsewhere Classified, Other Specified Sites 10/12/2009 MADL PHYSICIAN ASSISTANT PRIMARY CARE, ETELVINA L 799.02 Hypoxemia 10/12/2009 SALGUERO DO, LADONNA K 719.58 Stiffness Of Joint, Not Elsewhere Classified, Other Specified Sites 10/12/2009 SALGUERO DO, LADONNA K 799.02 Hypoxemia 10/12/2009 SALGUERO DO, LADONNA K 719.58 Stiffness Of Joint, Not Elsewhere Classified, Other Specified Sites 10/12/2009 SALGUERO DO, LADONNA K 799.02 Hypoxemia 10/12/2009 MADL PHYSICIAN ASSISTANT PRIMARY CARE, ETELVINA L 719.58 Stiffness Of Joint, Not Elsewhere Classified, Other Specified Sites 10/12/2009 MADL PHYSICIAN ASSISTANT PRIMARY CARE, ETELVINA L 799.02 Hypoxemia 10/12/2009 SALGUERO DO, LADONNA K 719.58 Stiffness Of Joint, Not Elsewhere Classified, Other Specified Sites 10/12/2009 SALGUERO DO, LADONNA K 799.02 Hypoxemia 10/12/2009 MADL PHYSICIAN ASSISTANT PRIMARY CARE, ETELVINA L 719.58 Stiffness Of Joint, Not Elsewhere Classified, Other Specified Sites 10/12/2009 MADL PHYSICIAN ASSISTANT PRIMARY CARE, ETELVINA L 799.02 Hypoxemia 11/07/2009 PALOMA MORA APRNNDA S 300.00 ANXIETY UNSPEC 11/07/2009 PALOMA MORA APRNNDA S 305.1 NICOTINE DEPENDENCE - CONTINUOUS 11/07/2009 300.00 Anxiety Unspec 11/07/2009 305.1 NICOTINE DEPENDENCE - CONTINUOUS 11/07/2009 MORGAN PHYSICIAN ASSISTANT PRIMARY CAREPALOMA BowserNDA S 300.00 Anxiety Unspec 11/07/2009 MORGAN [...] 305.1 NICOTINE DEPENDENCE - CONTINUOUS 11/07/2009 MADL PHYSICIAN ASSISTANT PRIMARY CARE, ETELVINA L 300.00 Anxiety Unspec 11/07/2009 MADL PHYSICIAN ASSISTANT PRIMARY CARE, ETELVINA L 305.1 NICOTINE DEPENDENCE - CONTINUOUS 11/07/2009 MADL PHYSICIAN ASSISTANT PRIMARY CARE, ETELVINA L 300.00 Anxiety Unspec 11/07/2009 MADL PHYSICIAN ASSISTANT PRIMARY CARE, ETELVINA L 305.1 NICOTINE DEPENDENCE - CONTINUOUS 11/07/2009 MADL PHYSICIAN ASSISTANT PRIMARY CARE, ETELVINA L 300.00 Anxiety Unspec 11/07/2009 MADL PHYSICIAN ASSISTANT PRIMARY CARE, ETELVINA L 305.1 NICOTINE DEPENDENCE - CONTINUOUS 11/07/2009 SALGUERO DO, LADONNA K 300.00 Anxiety Unspec 11/07/2009 SALGUERO DO, LADONNA K 305.1 NICOTINE DEPENDENCE - CONTINUOUS 11/07/2009 SALGUERO DO, LADONNA K 300.00 Anxiety Unspec 11/07/2009 SALGUERO DO, LADONNA K 305.1 NICOTINE DEPENDENCE - CONTINUOUS 11/07/2009 MADL PHYSICIAN ASSISTANT PRIMARY CARE, ETELVINA L 300.00 Anxiety Unspec 11/07/2009 MADL PHYSICIAN ASSISTANT PRIMARY CARE, ETELVINA L 305.1 NICOTINE DEPENDENCE - CONTINUOUS 11/07/2009 MADL PHYSICIAN ASSISTANT PRIMARY CARE, ETELVINA L 300.00 Anxiety Unspec 11/07/2009 MADL PHYSICIAN ASSISTANT PRIMARY CARE, ETELVINA L 305.1 NICOTINE DEPENDENCE - CONTINUOUS 11/07/2009 MADL PHYSICIAN ASSISTANT PRIMARY CARE, ETELVINA L 300.00 Anxiety Unspec 11/07/2009 MADL PHYSICIAN ASSISTANT PRIMARY CARE, ETELVINA L 305.1 NICOTINE DEPENDENCE - CONTINUOUS 11/07/2009 MADL PHYSICIAN ASSISTANT PRIMARY CARE, ETELVINA L 300.00 Anxiety Unspec 11/07/2009 MADL PHYSICIAN ASSISTANT PRIMARY CARE, ETELVINA L 305.1 NICOTINE DEPENDENCE - CONTINUOUS 11/07/2009 MADL PHYSICIAN ASSISTANT PRIMARY CARE, ETELVINA L 300.00 Anxiety Unspec 11/07/2009 MADL PHYSICIAN ASSISTANT PRIMARY CARE, ETELVINA L 305.1 NICOTINE DEPENDENCE - CONTINUOUS 11/07/2009 MADL PHYSICIAN ASSISTANT PRIMARY CARE, ETELVINA L 300.00 Anxiety Unspec 11/07/2009 MADL PHYSICIAN ASSISTANT PRIMARY CARE, ETELVINA L 305.1 NICOTINE DEPENDENCE - CONTINUOUS 11/07/2009 MADL PHYSICIAN ASSISTANT PRIMARY CARE, ETELVINA L 300.00 Anxiety Unspec 11/07/2009 MADL PHYSICIAN ASSISTANT PRIMARY CARE, ETELVINA L 305.1 NICOTINE DEPENDENCE - CONTINUOUS 11/07/2009 SALGUERO DO, LADONNA K 300.00 Anxiety Unspec 11/07/2009 SALGUERO DO, LADONNA K 305.1 NICOTINE DEPENDENCE - CONTINUOUS 11/07/2009 SALGEURO DO, LADONNA K 300.00 Anxiety Unspec 11/07/2009 SALGUERO DO, LADONNA K 305.1 NICOTINE DEPENDENCE - CONTINUOUS 11/07/2009 MADL PHYSICIAN ASSISTANT PRIMARY CARE, ETELVINA L 300.00 Anxiety Unspec 11/07/2009 MADL PHYSICIAN ASSISTANT PRIMARY CARE, ETELVINA L 305.1 NICOTINE DEPENDENCE - CONTINUOUS 11/07/2009 SALGUERO DO, LADONNA K 300.00 Anxiety Unspec 11/07/2009 SALGUERO DO, LADONNA K 305.1 NICOTINE DEPENDENCE - CONTINUOUS 11/07/2009 MADL PHYSICIAN ASSISTANT PRIMARY CARE, ETELVINA L 300.00 Anxiety Unspec 11/07/2009 MADL PHYSICIAN ASSISTANT PRIMARY CARE, ETELVINA L 305.1 NICOTINE DEPENDENCE - CONTINUOUS 01/31/2010 LAURIE MORA APRN S 719.43 Joint Pain, Localized In The Wrist 01/31/2010 LAURIE MORA APRN S 782.0 Numbness (hypesthesia) 01/31/2010 719.43 Joint Pain, Localized In The Wrist 01/31/2010 782.0 Numbness ( hypesthesia) 01/31/2010 LAURIE MORA APRN 719.43 Joint Pain, Localized In The Wrist 01/31/2010 MORGAN PHYSICIAN ASSISTANT PRIMARY CARE, LAURIE S 782.0 Numbness (hypesthesia) 01/31/2010 MORGAN PHYSICIAN ASSISTANT PRIMARY CARE, LAURIE S 719.43 Joint Pain, Localized In [...] LADONNA K 782.0 Numbness (hypesthesia) 01/31/2010 MADL PHYSICIAN ASSISTANT PRIMARY CARE, ETELVINA L 719.43 Joint Pain, Localized In The Wrist 01/31/2010 MADL PHYSICIAN ASSISTANT PRIMARY CARE, ETELVINA L 782.0 Numbness (hypesthesia) 01/31/2010 MADL PHYSICIAN ASSISTANT PRIMARY CARE, ETELVINA L 719.43 Joint Pain, Localized In The Wrist 01/31/2010 MADL PHYSICIAN ASSISTANT PRIMARY CARE, ETELVINA L 782.0 Numbness (hypesthesia) 01/31/2010 MADL PHYSICIAN ASSISTANT PRIMARY CARE, ETELVINA L 719.43 Joint Pain, Localized In The Wrist 01/31/2010 MADL PHYSICIAN ASSISTANT PRIMARY CARE, ETELVINA L 782.0 Numbness (hypesthesia) 01/31/2010 SALGUERO DO, LADONNA K 719.43 Joint Pain, Localized In The Wrist 01/31/2010 SALGUERO DO, LADONNA K 782.0 Numbness (hypesthesia) 01/31/2010 SALGUERO DO, LADONNA K 719.43 Joint Pain, Localized In The Wrist 01/31/2010 SALGUERO DO, LADONNA K 782.0 Numbness (hypesthesia) 01/31/2010 MADL PHYSICIAN ASSISTANT PRIMARY CARE, ETELVINA L 719.43 Joint Pain, Localized In The Wrist 01/31/2010 MADL PHYSICIAN ASSISTANT PRIMARY CARE, ETELVINA L 782.0 Numbness (hypesthesia) 01/31/2010 MADL PHYSICIAN ASSISTANT PRIMARY CARE, ETELVINA L 719.43 Joint Pain, Localized In The Wrist 01/31/2010 MADL PHYSICIAN ASSISTANT PRIMARY CARE, ETELVINA L 782.0 Numbness (hypesthesia) 01/31/2010 MADL PHYSICIAN ASSISTANT PRIMARY CARE, ETELVINA L 719.43 Joint Pain, Localized In The Wrist 01/31/2010 MADL PHYSICIAN ASSISTANT PRIMARY CARE, ETELVINA L 782.0 Numbness (hypesthesia) 01/31/2010 MADL PHYSICIAN ASSISTANT PRIMARY CARE, ETELVINA L 719.43 Joint Pain, Localized In The Wrist 01/31/2010 MADL PHYSICIAN ASSISTANT PRIMARY CARE, ETELVINA L 782.0 Numbness (hypesthesia) 01/31/2010 MADL PHYSICIAN ASSISTANT PRIMARY CARE, ETELVINA L 719.43 Joint Pain, Localized In The Wrist 01/31/2010 MADL PHYSICIAN ASSISTANT PRIMARY CARE, ETELVINA L 782.0 Numbness (hypesthesia) 01/31/2010 MADL PHYSICIAN ASSISTANT PRIMARY CARE, ETELVINA L 719.43 Joint Pain, Localized In The Wrist 01/31/2010 MADL PHYSICIAN ASSISTANT PRIMARY CARE, ETELVINA L 782.0 Numbness (hypesthesia) 01/31/2010 MADL PHYSICIAN ASSISTANT PRIMARY CARE, ETELVINA L 719.43 Joint Pain, Localized In The Wrist 01/31/2010 MADL PHYSICIAN ASSISTANT PRIMARY CARE, ETELVINA L 782.0 Numbness (hypesthesia) 01/31/2010 SALGUERO DO, LADONNA K 719.43 Joint Pain, Localized In The Wrist 01/31/2010 SALGUERO DO, LADONNA K 782.0 Numbness (hypesthesia) 01/31/2010 SALGUERO DO, LADONNA K 719.43 Joint Pain, Localized In The Wrist 01/31/2010 SALGUERO DO, LADONNA K 782.0 Numbness (hypesthesia) 01/31/2010 MADL PHYSICIAN ASSISTANT PRIMARY CARE, ETELVINA L 719.43 Joint Pain, Localized In The Wrist 01/31/2010 MADL PHYSICIAN ASSISTANT PRIMARY CARE, ETELVINA L 782.0 Numbness (hypesthesia) 01/31/2010 SALGUERO DO LADONNA K 719.43 Joint Pain, Localized In The Wrist 01/31/2010 SALGUERO DO, LADONNA K 782.0 Numbness (hypesthesia) 01/31/2010 MADL PHYSICIAN ASSISTANT PRIMARY CAREHAMMAD BowserA L 719.43 Joint Pain, Localized In The Wrist 01/31/2010 MADL PHYSICIAN ASSISTANT PRIMARY CARE, ETELVINA L 782.0 Numbness (hypesthesia) 03/14/2010 Ot [...] K 517.3 Acute Chest Syndrome 04/02/2010 MADMaxine PHYSICIAN ASSISTANT PRIMARY CAREHAMMAD BowserA L 517.3 Acute Chest Syndrome 04/02/2010 MADL PHYSICIAN ASSISTANT PRIMARY CARE, ETELVINA L 517.3 Acute Chest Syndrome 04/02/2010 MADL PHYSICIAN ASSISTANT PRIMARY CARE, ETELVINA L 517.3 Acute Chest Syndrome 04/02/2010 SALGUERO DO, LADONNA K 517.3 Acute Chest Syndrome 04/02/2010 SALGUERO DO, LADONNA K 517.3 Acute Chest Syndrome 04/02/2010 MADL PHYSICIAN ASSISTANT PRIMARY CARE, ETELVINA L 517.3 Acute Chest Syndrome 04/02/2010 MADL PHYSICIAN ASSISTANT PRIMARY CARE, ETELVINA L 517.3 Acute Chest Syndrome 04/02/2010 MADL PHYSICIAN ASSISTANT PRIMARY CARE, ETELVINA L 517.3 Acute Chest Syndrome 04/02/2010 MADL PHYSICIAN ASSISTANT PRIMARY CARE, ETELVINA L 517.3 Acute Chest Syndrome 04/02/2010 MADL PHYSICIAN ASSISTANT PRIMARY CARE, ETELVINA L 517.3 Acute Chest Syndrome 04/02/2010 MADL PHYSICIAN ASSISTANT PRIMARY CARE, ETELVINA L 517.3 Acute Chest Syndrome 04/02/2010 MADL PHYSICIAN ASSISTANT PRIMARY CARE, ETELVINA L 517.3 Acute Chest Syndrome 04/02/2010 SALGUERO DO, LADONNA K 517.3 Acute Chest Syndrome 04/02/2010 SALGUERO DO, LADONNA K 517.3 Acute Chest Syndrome 04/02/2010 MADL PHYSICIAN ASSISTANT PRIMARY CARE, ETELVINA L 517.3 Acute Chest Syndrome 04/02/2010 SALGUERO DO, LADONNA K 517.3 Acute Chest Syndrome 04/02/2010 MADL PHYSICIAN ASSISTANT PRIMARY CARE, ETELVINA L 517.3 Acute Chest Syndrome 04/14/2010 Ot 305.1 04/14/2010 Ot 491.21 04/14/2010 Ot 786.05 05/20/2010 MORGAN PHYSICIAN ASSISTANT PRIMARY CARE, LAURIE S 272.4 HYPERLIPIDEMIA 05/20/2010 MORGAN PHYSICIAN ASSISTANT PRIMARY CARE, LAURIE S 414.01 CAD 05/20/2010 272.4 HYPERLIPIDEMIA 05/20/2010 414.01 CAD 05/20/2010 MORGAN PHYSICIAN ASSISTANT PRIMARY CARE, LAURIE S 272.4 HYPERLIPIDEMIA 05/20/2010 MORGAN PHYSICIAN ASSISTANT PRIMARY CARE, LAURIE S 414.01 CAD 05/20/2010 MORGAN PHYSICIAN ASSISTANT PRIMARY CARE, LAURIE S 272.4 HYPERLIPIDEMIA 05/20/2010 MORGAN HUDSONN, [...] 414.01 CORONARY ARTERY STENOSIS MULTI-VESSEL 05/20/2010 MADL PHYSICIAN ASSISTANT PRIMARY CARE, ETELVINA L 272.4 HYPERLIPIDEMIA 05/20/2010 MADL PHYSICIAN ASSISTANT PRIMARY CARE, ETELVINA L 414.01 CORONARY ARTERY STENOSIS MULTI-VESSEL 05/20/2010 MADL PHYSICIAN ASSISTANT PRIMARY CARE, ETELVINA L 272.4 HYPERLIPIDEMIA 05/20/2010 MADL PHYSICIAN ASSISTANT PRIMARY CARE, ETELVINA L 414.01 CORONARY ARTERY STENOSIS MULTI-VESSEL 05/20/2010 MADL PHYSICIAN ASSISTANT PRIMARY CARE, ETELVINA L 272.4 HYPERLIPIDEMIA 05/20/2010 MADL PHYSICIAN ASSISTANT PRIMARY CARE, ETELVINA L 414.01 CORONARY ARTERY STENOSIS MULTI-VESSEL 05/20/2010 SALGUERO DO, LADONNA K 272.4 HYPERLIPIDEMIA 05/20/2010 SALGUREO DO, LADONNA K 414.01 CORONARY ARTERY STENOSIS MULTI-VESSEL 05/20/2010 SALGUERO DO, LADONNA K 272.4 HYPERLIPIDEMIA 05/20/2010 SALGUERO DO, LADONNA K 414.01 CORONARY ARTERY STENOSIS MULTI-VESSEL 05/20/2010 MADL PHYSICIAN ASSISTANT PRIMARY CARE, ETELVINA L 272.4 HYPERLIPIDEMIA 05/20/2010 MADL PHYSICIAN ASSISTANT PRIMARY CARE, ETELVINA L 414.01 CORONARY ARTERY STENOSIS MULTI-VESSEL 05/20/2010 MADL PHYSICIAN ASSISTANT PRIMARY CARE, ETELVINA L 272.4 HYPERLIPIDEMIA 05/20/2010 MADL PHYSICIAN ASSISTANT PRIMARY CARE, ETELVINA L 414.01 CORONARY ARTERY STENOSIS MULTI-VESSEL 05/20/2010 MADL PHYSICIAN ASSISTANT PRIMARY CARE, ETELVINA L 272.4 HYPERLIPIDEMIA 05/20/2010 MADL PHYSICIAN ASSISTANT PRIMARY CARE, ETELVINA L 414.01 CORONARY ARTERY STENOSIS MULTI-VESSEL 05/20/2010 MADL PHYSICIAN ASSISTANT PRIMARY CARE, ETELVINA L 272.4 HYPERLIPIDEMIA 05/20/2010 MADL PHYSICIAN ASSISTANT PRIMARY CARE, ETELVINA L 414.01 CORONARY ARTERY STENOSIS MULTI-VESSEL 05/20/2010 MADL PHYSICIAN ASSISTANT PRIMARY CARE, ETELVINA L 272.4 HYPERLIPIDEMIA 05/20/2010 MADL PHYSICIAN ASSISTANT PRIMARY CARE, ETELVINA L 414.01 CORONARY ARTERY STENOSIS MULTI-VESSEL 05/20/2010 MADL PHYSICIAN ASSISTANT PRIMARY CARE, ETELVINA L 272.4 HYPERLIPIDEMIA 05/20/2010 MADL PHYSICIAN ASSISTANT PRIMARY CARE, ETELVINA L 414.01 CORONARY ARTERY STENOSIS MULTI-VESSEL 05/20/2010 MADL PHYSICIAN ASSISTANT PRIMARY CARE, ETELVINA L 272.4 HYPERLIPIDEMIA 05/20/2010 MADL PHYSICIAN ASSISTANT PRIMARY CARE, ETELVINA L 414.01 CORONARY ARTERY STENOSIS MULTI-VESSEL 05/20/2010 SALGUERO DO, LADONNA K 272.4 HYPERLIPIDEMIA 05/20/2010 SALGUERO DO, LADONNA K 414.01 CORONARY ARTERY STENOSIS MULTI-VESSEL 05/20/2010 SALGUERO DO, LADONNA K 272.4 HYPERLIPIDEMIA 05/20/2010 SALGUERO DO, LADONNA K 414.01 CORONARY ARTERY STENOSIS MULTI-VESSEL 05/20/2010 MADL PHYSICIAN ASSISTANT PRIMARY CARE, ETELVINA L 272.4 HYPERLIPIDEMIA 05/20/2010 MADL PHYSICIAN ASSISTANT PRIMARY CARE, ETELVINA L 414.01 CORONARY ARTERY STENOSIS MULTI-VESSEL 05/20/2010 SALGUERO DO, LADONNA K 272.4 HYPERLIPIDEMIA 05/20/2010 SALGUERO DO, LADONNA K 414.01 CORONARY ARTERY STENOSIS MULTI-VESSEL 05/20/2010 MADL PHYSICIAN ASSISTANT PRIMARY CARE, ETELVINA L 272.4 HYPERLIPIDEMIA 05/20/2010 MADL PHYSICIAN ASSISTANT PRIMARY CARE, ETELVINA L 414.01 CORONARY ARTERY STENOSIS MULTI-VESSEL [...] IDIOPATHIC PERIPHERAL NEUROPATHY 07/31/2010 KARYN OLVERA, BYRON rBuner 356.9 UNSPECIFIED IDIOPATHIC PERIPHERAL NEUROPATHY 07/31/2010 SALGUERO [...] 356.9 UNSPECIFIED IDIOPATHIC PERIPHERAL NEUROPATHY 07/31/2010 MADL PHYSICIAN ASSISTANT PRIMARY CARE, ETELVINA L 356.9 UNSPECIFIED IDIOPATHIC PERIPHERAL NEUROPATHY 07/31/2010 MADL PHYSICIAN ASSISTANT PRIMARY CARE, ETELVINA L 356.9 UNSPECIFIED IDIOPATHIC PERIPHERAL NEUROPATHY 07/31/2010 MADL PHYSICIAN ASSISTANT PRIMARY CARE, ETELVINA L 356.9 UNSPECIFIED IDIOPATHIC PERIPHERAL NEUROPATHY 07/31/2010 SALGUERO DO, LADONNA K 356.9 UNSPECIFIED IDIOPATHIC PERIPHERAL NEUROPATHY 07/31/2010 SALGUERO DO, LADONNA K 356.9 UNSPECIFIED IDIOPATHIC PERIPHERAL NEUROPATHY 07/31/2010 MADL PHYSICIAN ASSISTANT PRIMARY CARE, ETELVINA L 356.9 UNSPECIFIED IDIOPATHIC PERIPHERAL NEUROPATHY 07/31/2010 MADL PHYSICIAN ASSISTANT PRIMARY CARE, ETELVINA L 356.9 UNSPECIFIED IDIOPATHIC PERIPHERAL NEUROPATHY 07/31/2010 MADL PHYSICIAN ASSISTANT PRIMARY CARE, ETELVINA L 356.9 UNSPECIFIED IDIOPATHIC PERIPHERAL NEUROPATHY 07/31/2010 MADL PHYSICIAN ASSISTANT PRIMARY CARE, ETELVINA L 356.9 UNSPECIFIED IDIOPATHIC PERIPHERAL NEUROPATHY 07/31/2010 MADL PHYSICIAN ASSISTANT PRIMARY CARE, ETELVINA L 356.9 UNSPECIFIED IDIOPATHIC PERIPHERAL NEUROPATHY 07/31/2010 MADL PHYSICIAN ASSISTANT PRIMARY CARE, ETELVINA L 356.9 UNSPECIFIED IDIOPATHIC PERIPHERAL NEUROPATHY 07/31/2010 MADL PHYSICIAN ASSISTANT PRIMARY CARE, ETELVINA L 356.9 UNSPECIFIED IDIOPATHIC PERIPHERAL NEUROPATHY 07/31/2010 SALGUERO DO, LADONNA K 356.9 UNSPECIFIED IDIOPATHIC PERIPHERAL NEUROPATHY 07/31/2010 SALGUERO DO, LADONNA K 356.9 UNSPECIFIED IDIOPATHIC PERIPHERAL NEUROPATHY 07/31/2010 MADL PHYSICIAN ASSISTANT PRIMARY CARE, ETELVINA L 356.9 UNSPECIFIED IDIOPATHIC PERIPHERAL NEUROPATHY 07/31/2010 SALGUERO DO, LADONNA K 356.9 UNSPECIFIED IDIOPATHIC PERIPHERAL NEUROPATHY 07/31/2010 MADL PHYSICIAN ASSISTANT PRIMARY CARE, ETELVINA L 356.9 UNSPECIFIED IDIOPATHIC PERIPHERAL NEUROPATHY 08/01/2010 MORGAN PHYSICIAN ASSISTANT PRIMARY CARE, LAURIE S 791.0 Microalbuminuria 08/01/2010 791.0 Microalbuminuria 08/01/2010 MORGAN PHYSICIAN ASSISTANT PRIMARY CARE, LAURIE S 791.0 Microalbuminuria 08/01/2010 MORGAN PHYSICIAN ASSISTANT PRIMARY CARE, LAURIE S 791.0 Microalbuminuria 08/01/2010 ROMELIA FISCHER [...] DO, LADONNA K 791.0 Microalbuminuria 08/01/2010 MADL PHYSICIAN ASSISTANT PRIMARY CARE, ETELVINA L 791.0 Microalbuminuria 08/01/2010 MADL PHYSICIAN ASSISTANT PRIMARY CARE, ETELVINA L 791.0 Microalbuminuria 08/01/2010 MADL PHYSICIAN ASSISTANT PRIMARY CARE, ETELVINA L 791.0 Microalbuminuria 08/01/2010 SALGUERO DO, LADONNA K 791.0 Microalbuminuria 08/01/2010 SALGUERO DO, LADONNA K 791.0 Microalbuminuria 08/01/2010 MADL PHYSICIAN ASSISTANT PRIMARY CARE, ETELVINA L 791.0 Microalbuminuria 08/01/2010 MADL PHYSICIAN ASSISTANT PRIMARY CARE, ETELVINA L 791.0 Microalbuminuria 08/01/2010 MADL PHYSICIAN ASSISTANT PRIMARY CARE, ETELVINA L 791.0 Microalbuminuria 08/01/2010 MADL PHYSICIAN ASSISTANT PRIMARY CARE, ETELVINA L 791.0 Microalbuminuria 08/01/2010 MADL PHYSICIAN ASSISTANT PRIMARY CARE, ETELVINA L 791.0 Microalbuminuria 08/01/2010 MADL PHYSICIAN ASSISTANT PRIMARY CARE, ETELVINA L 791.0 Microalbuminuria 08/01/2010 MADL PHYSICIAN ASSISTANT PRIMARY CARE, ETELVINA L 791.0 Microalbuminuria 08/01/2010 SALGUERO DO, LADONNA K 791.0 Microalbuminuria 08/01/2010 SALGUERO DO, LADONNA K 791.0 Microalbuminuria 08/01/2010 MADL PHYSICIAN ASSISTANT PRIMARY CARE, ETELVINA L 791.0 Microalbuminuria 08/01/2010 SALGUERO DO, LADONNA K 791.0 Microalbuminuria 08/01/2010 MADL PHYSICIAN ASSISTANT PRIMARY CARE, ETELVINA L 791.0 Microalbuminuria 08/05/2010 LAURIE MORA [...] 721.0 Cervical Spondylosis Without Myelopathy 08/05/2010 MADL PHYSICIAN ASSISTANT PRIMARY CARE, ETELVINA L 721.0 Cervical Spondylosis Without Myelopathy 08/05/2010 MADL PHYSICIAN ASSISTANT PRIMARY CARE, ETELVINA L 721.0 Cervical Spondylosis Without Myelopathy 08/05/2010 MADL PHYSICIAN ASSISTANT PRIMARY CARE, ETELVINA L 721.0 Cervical Spondylosis Without Myelopathy 08/05/2010 SALGUERO DO, LADONNA K 721.0 Cervical Spondylosis Without Myelopathy 08/05/2010 SALGUERO DO, LADONNA K 721.0 Cervical Spondylosis Without Myelopathy 08/05/2010 MADL PHYSICIAN ASSISTANT PRIMARY CARE, ETELVINA L 721.0 Cervical Spondylosis Without Myelopathy 08/05/2010 MADL PHYSICIAN ASSISTANT PRIMARY CARE, ETELVINA L 721.0 Cervical Spondylosis Without Myelopathy 08/05/2010 MADL PHYSICIAN ASSISTANT PRIMARY CARE, ETELVINA L 721.0 Cervical Spondylosis Without Myelopathy 08/05/2010 MADL PHYSICIAN ASSISTANT PRIMARY CARE, ETELVINA L 721.0 Cervical Spondylosis Without Myelopathy 08/05/2010 MADL PHYSICIAN ASSISTANT PRIMARY CARE, ETELVINA L 721.0 Cervical Spondylosis Without Myelopathy 08/05/2010 MADL PHYSICIAN ASSISTANT PRIMARY CARE, ETELVINA L 721.0 Cervical Spondylosis Without Myelopathy 08/05/2010 MADL PHYSICIAN ASSISTANT PRIMARY CARE, ETELVINA L 721.0 Cervical Spondylosis Without Myelopathy 08/05/2010 SALGUERO DO, LADONNA K 721.0 Cervical Spondylosis Without Myelopathy 08/05/2010 SALGUERO DO, LADONNA K 721.0 Cervical Spondylosis Without Myelopathy 08/05/2010 HUGOL PHYSICIAN ASSISTANT PRIMARY CARE, ETELVINA Goodman 721.0 Cervical Spondylosis Without Myelopathy 08/05/2010 LADONNA SALGUERO DO K 721.0 Cervical Spondylosis Without Myelopathy 08/05/2010 MADL PHYSICIAN ASSISTANT PRIMARY CARE, ETELVINA Goodman 721.0 Cervical Spondylosis Without Myelopathy 08/07/2010 Ot 847.0 08/07/2010 Ot 847.2 08/07/2010 Ot 959.09 08/07/2010 Ot E000.8 08/07/2010 Ot E849.0 08/07/2010 Ot E884.2 08/13/2010 MORGAN HARRIS LAURIE S 441.4 ABDOMINAL ANEURYSM WITHOUT MENTION OF RUPTURE 08/13/2010 MORGAN PHYSICIAN ASSISTANT PRIMARY CARE, LAURIE S 724.2 LUMBAGO 08/13/2010 441.4 Abdominal Aneurysm Without Mention Of Rupture 08/13/2010 724.2 LUMBAGO 08/13/2010 MORGAN HARRIS LAURIE S 441.4 Abdominal Aneurysm Without Mention Of Rupture 08/13/2010 MORGAN PHYSICIAN ASSISTANT PRIMARY CARE, LAURIE S 724.2 LUMBAGO 08/13/2010 MORGAN PHYSICIAN ASSISTANT PRIMARY CARE, LAURIE S 441.4 Abdominal Aneurysm Without Mention [...] K 724.2 lower back pain 08/13/2010 MADL PHYSICIAN ASSISTANT PRIMARY CARE, ETELVINA L 441.4 Abdominal Aneurysm Without Mention Of Rupture 08/13/2010 MADL PHYSICIAN ASSISTANT PRIMARY CARE, ETELVINA L 724.2 lower back pain 08/13/2010 MADL PHYSICIAN ASSISTANT PRIMARY CARE, ETELVINA L 441.4 Abdominal Aneurysm Without Mention Of Rupture 08/13/2010 MADL PHYSICIAN ASSISTANT PRIMARY CARE, ETELVINA L 724.2 lower back pain 08/13/2010 MADL PHYSICIAN ASSISTANT PRIMARY CARE, ETELVINA L 441.4 Abdominal Aneurysm Without Mention Of Rupture 08/13/2010 MADL PHYSICIAN ASSISTANT PRIMARY CARE, ETELVINA L 724.2 lower back pain 08/13/2010 SALGUERO DO, LADONNA K 441.4 Abdominal Aneurysm Without Mention Of Rupture 08/13/2010 SALGUERO DO, LADONNA K 724.2 lower back pain 08/13/2010 SALGUERO DO, LADONNA K 441.4 Abdominal Aneurysm Without Mention Of Rupture 08/13/2010 SALGUERO DO, LADONNA K 724.2 lower back pain 08/13/2010 MADL PHYSICIAN ASSISTANT PRIMARY CARE, ETELVINA L 441.4 Abdominal Aneurysm Without Mention Of Rupture 08/13/2010 MADL PHYSICIAN ASSISTANT PRIMARY CARE, ETELVINA L 724.2 lower back pain 08/13/2010 MADL PHYSICIAN ASSISTANT PRIMARY CARE, ETELVINA L 441.4 Abdominal Aneurysm Without Mention Of Rupture 08/13/2010 MADL PHYSICIAN ASSISTANT PRIMARY CARE, ETELVINA L 724.2 lower back pain 08/13/2010 MADL PHYSICIAN ASSISTANT PRIMARY CARE, ETELVINA L 441.4 Abdominal Aneurysm Without Mention Of Rupture 08/13/2010 MADL PHYSICIAN ASSISTANT PRIMARY CARE, ETELVINA L 724.2 lower back pain 08/13/2010 MADL PHYSICIAN ASSISTANT PRIMARY CARE, ETELVINA L 441.4 Abdominal Aneurysm Without Mention Of Rupture 08/13/2010 MADL PHYSICIAN ASSISTANT PRIMARY CARE, ETELVINA L 724.2 lower back pain 08/13/2010 MADL PHYSICIAN ASSISTANT PRIMARY CARE, ETELVINA L 441.4 Abdominal Aneurysm Without Mention Of Rupture 08/13/2010 MADL PHYSICIAN ASSISTANT PRIMARY CARE, ETELVINA L 724.2 lower back pain 08/13/2010 MADL PHYSICIAN ASSISTANT PRIMARY CARE, ETELVINA L 441.4 Abdominal Aneurysm Without Mention Of Rupture 08/13/2010 MADL PHYSICIAN ASSISTANT PRIMARY CARE, ETELVINA L 724.2 lower back pain 08/13/2010 MADL PHYSICIAN ASSISTANT PRIMARY CARE, ETELVINA L 441.4 Abdominal Aneurysm Without Mention Of Rupture 08/13/2010 MADL PHYSICIAN ASSISTANT PRIMARY CARE, ETELVINA L 724.2 lower back pain 08/13/2010 SALGUERO DO, LADONNA K 441.4 Abdominal Aneurysm Without Mention Of Rupture 08/13/2010 SALGUERO DO, LADONNA K 724.2 lower back pain 08/13/2010 TERE SALGUERO DOA K 441.4 Abdominal Aneurysm Without Mention Of Rupture 08/13/2010 NOEMY DOTEREA K 724.2 lower back pain 08/13/2010 MADL PHYSICIAN ASSISTANT PRIMARY CAREETELVINA Bowser L 441.4 Abdominal Aneurysm Without Mention Of Rupture 08/13/2010 HUGOL ETELVINA HARRIS L 724.2 lower back pain 08/13/2010 TERE SALGUERO DOA K 441.4 Abdominal Aneurysm Without Mention Of Rupture 08/13/2010 TERE SALGUERO DOA K 724.2 lower back pain 08/13/2010 MADL PHYSICIAN ASSISTANT PRIMARY CAREHAMMAD BowserA L 441.4 Abdominal Aneurysm Without Mention [...] Pain In Joint Site Unspecified 12/12/2010 MORGAN PHYSICIAN ASSISTANT PRIMARY CARE, LUARIE S 724.5 Back Pain, General 12/12/2010 MORGAN PHYSICIAN ASSISTANT PRIMARY CARE, LAURIE S 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 12/12/2010 MORGAN PHYSICIAN ASSISTANT PRIMARY CARE, LAURIE S 729.5 Arm Pain 12/12/2010 MORGAN PHYSICIAN ASSISTANT PRIMARY CARE, LAURIE S 719.40 Pain In Joint Site Unspecified 12/12/2010 MORGAN PHYSICIAN ASSISTANT PRIMARY CARE, LAURIE S 724.5 Back Pain, General 12/12/2010 MORGAN PHYSICIAN ASSISTANT PRIMARY CARE, LAURIE S 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 12/12/2010 MORGAN PHYSICIAN ASSISTANT PRIMARY CARE, LAURIE S 729.5 Arm Pain 12/12/2010 AMADO [...] BOSS MD 729.5 Arm Pain 12/12/2010 SALGUERO DO, LADONNA [...] LADONNA K 729.5 Arm Pain 12/12/2010 MADL PHYSICIAN ASSISTANT PRIMARY CARE, ETELVINA L 719.40 Pain In Joint Site Unspecified 12/12/2010 MADL PHYSICIAN ASSISTANT PRIMARY CARE, ETELVINA L 724.5 Back Pain, General 12/12/2010 MADL PHYSICIAN ASSISTANT PRIMARY CARE, ETELVINA L 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 12/12/2010 MADL PHYSICIAN ASSISTANT PRIMARY CARE, ETELVINA L 729.5 Arm Pain 12/12/2010 MADL PHYSICIAN ASSISTANT PRIMARY CARE, ETELVINA L 719.40 Pain In Joint Site Unspecified 12/12/2010 MADL PHYSICIAN ASSISTANT PRIMARY CARE, ETELVINA L 724.5 Back Pain, General 12/12/2010 MADL PHYSICIAN ASSISTANT PRIMARY CARE, ETELVINA L 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 12/12/2010 MADL PHYSICIAN ASSISTANT PRIMARY CARE, ETELVINA L 729.5 Arm Pain 12/12/2010 MADL PHYSICIAN ASSISTANT PRIMARY CARE, ETELVINA L 719.40 Pain In Joint Site Unspecified 12/12/2010 MADL PHYSICIAN ASSISTANT PRIMARY CARE, ETELVINA L 724.5 Back Pain, General 12/12/2010 MADL PHYSICIAN ASSISTANT PRIMARY CARE, ETELVINA L 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 12/12/2010 MADL PHYSICIAN ASSISTANT PRIMARY CARE, ETELVINA L 729.5 Arm Pain 12/12/2010 SALGUERO [...] LADONNA K 729.5 Arm Pain 12/12/2010 MADL PHYSICIAN ASSISTANT PRIMARY CARE, ETELVINA L 719.40 Pain In Joint Site Unspecified 12/12/2010 MADL PHYSICIAN ASSISTANT PRIMARY CARE, ETELVINA L 724.5 Back Pain, General 12/12/2010 MADL PHYSICIAN ASSISTANT PRIMARY CARE, ETELVINA L 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 12/12/2010 MADL PHYSICIAN ASSISTANT PRIMARY CARE, ETELVINA L 729.5 Arm Pain 12/12/2010 MADL PHYSICIAN ASSISTANT PRIMARY CARE, ETELVINA L 719.40 Pain In Joint Site Unspecified 12/12/2010 MADL PHYSICIAN ASSISTANT PRIMARY CARE, ETELVINA L 724.5 Back Pain, General 12/12/2010 MADL PHYSICIAN ASSISTANT PRIMARY CARE, ETELVINA L 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 12/12/2010 MADL PHYSICIAN ASSISTANT PRIMARY CARE, ETELVINA L 729.5 Arm Pain 12/12/2010 MADL PHYSICIAN ASSISTANT PRIMARY CARE, ETELVINA L 719.40 Pain In Joint Site Unspecified 12/12/2010 MADL PHYSICIAN ASSISTANT PRIMARY CARE, ETELVINA L 724.5 Back Pain, General 12/12/2010 MADL PHYSICIAN ASSISTANT PRIMARY CARE, ETELVINA L 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 12/12/2010 MADL PHYSICIAN ASSISTANT PRIMARY CARE, ETELVINA L 729.5 Arm Pain 12/12/2010 MADL PHYSICIAN ASSISTANT PRIMARY CARE, ETELVINA L 719.40 Pain In Joint Site Unspecified 12/12/2010 MADL PHYSICIAN ASSISTANT PRIMARY CARE, ETELVINA L 724.5 Back Pain, General 12/12/2010 MADL PHYSICIAN ASSISTANT PRIMARY CARE, ETELVINA L 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 12/12/2010 MADL PHYSICIAN ASSISTANT PRIMARY CARE, ETELVINA L 729.5 Arm Pain 12/12/2010 MADL PHYSICIAN ASSISTANT PRIMARY CARE, ETELVINA L 719.40 Pain In Joint Site Unspecified 12/12/2010 MADL PHYSICIAN ASSISTANT PRIMARY CARE, ETELVINA L 724.5 Back Pain, General 12/12/2010 MADL PHYSICIAN ASSISTANT PRIMARY CARE, ETELVINA L 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 12/12/2010 MADL PHYSICIAN ASSISTANT PRIMARY CARE, ETELVINA L 729.5 Arm Pain 12/12/2010 MADL PHYSICIAN ASSISTANT PRIMARY CARE, ETELVINA L 719.40 Pain In Joint Site Unspecified 12/12/2010 MADL PHYSICIAN ASSISTANT PRIMARY CARE, ETELVINA L 724.5 Back Pain, General 12/12/2010 MADL PHYSICIAN ASSISTANT PRIMARY CARE, ETELVINA L 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 12/12/2010 MADL PHYSICIAN ASSISTANT PRIMARY CARE, ETELVINA L 729.5 Arm Pain 12/12/2010 MADL PHYSICIAN ASSISTANT PRIMARY CARE, ETELVINA L 719.40 Pain In Joint Site Unspecified 12/12/2010 MADL PHYSICIAN ASSISTANT PRIMARY CARE, ETELVINA L 724.5 Back Pain, General 12/12/2010 MADL PHYSICIAN ASSISTANT PRIMARY CARE, ETELVINA L 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 12/12/2010 MADL PHYSICIAN ASSISTANT PRIMARY CARE, ETELVINA L 729.5 Arm Pain 12/12/2010 SALGUERO [...] LADONNA K 729.5 Arm Pain 12/12/2010 MADL PHYSICIAN ASSISTANT PRIMARY CARE, ETELVINA L 719.40 Pain In Joint Site Unspecified 12/12/2010 MADL PHYSICIAN ASSISTANT PRIMARY CARE, ETELVINA L 724.5 Back Pain, General 12/12/2010 MADL PHYSICIAN ASSISTANT PRIMARY CARE, ETELVINA L 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 12/12/2010 MADL PHYSICIAN ASSISTANT PRIMARY CARE, ETELVINA L 729.5 Arm Pain 12/12/2010 SALGUERO DO, LADONNA K 719.40 Pain In Joint Site Unspecified 12/12/2010 SALGUERO DO, LADONNA K 724.5 Back Pain, General 12/12/2010 SALGUERO DO, LADONNA K 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 12/12/2010 SALGUERO DO, LADONNA K 729.5 Arm Pain 12/12/2010 MADL PHYSICIAN ASSISTANT PRIMARY CARE, ETELVINA L 719.40 Pain In Joint Site Unspecified 12/12/2010 MADL PHYSICIAN ASSISTANT PRIMARY CARE, ETELVINA L 724.5 Back Pain, General 12/12/2010 MADL PHYSICIAN ASSISTANT PRIMARY CARE, ETELVINA L 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 12/12/2010 MADL PHYSICIAN ASSISTANT PRIMARY CARE, ETELVINA L 729.5 Arm Pain 01/22/2011 Ot [...] V68.1 ISSUE OF REPEAT PRESCRIPTIONS 06/17/2011 MADL PHYSICIAN ASSISTANT PRIMARY CAREHAMMAD BwoserA L V68.1 ISSUE OF REPEAT PRESCRIPTIONS 06/17/2011 SALGUERO DOTEREA K V68.1 ISSUE OF REPEAT PRESCRIPTIONS 06/17/2011 SALGUERO DOTEREA K V68.1 ISSUE OF REPEAT PRESCRIPTIONS 06/17/2011 MADL PHYSICIAN ASSISTANT PRIMARY CAREANDREZETELVINA L V68.1 ISSUE OF REPEAT PRESCRIPTIONS 06/17/2011 MADL PHYSICIAN ASSISTANT PRIMARY CAREANDREZETELVINA L V68.1 ISSUE OF REPEAT PRESCRIPTIONS 06/17/2011 MADL PHYSICIAN ASSISTANT PRIMARY CARE, ETELVINA L V68.1 ISSUE OF REPEAT PRESCRIPTIONS 06/17/2011 MADL PHYSICIAN ASSISTANT PRIMARY CARESARAETELVINA L V68.1 ISSUE OF REPEAT PRESCRIPTIONS 06/17/2011 MADL PHYSICIAN ASSISTANT PRIMARY CARE, ETELVINA L V68.1 ISSUE OF REPEAT PRESCRIPTIONS 06/17/2011 MADL PHYSICIAN ASSISTANT PRIMARY CAREANDREZ BowserNYA L V68.1 ISSUE OF REPEAT PRESCRIPTIONS [...] TY 07/14/2011 Ot 414.01 CORONARY ATHEROSCLEROSIS OF [place] CORON 07/14/2011 Ot 496 CHR AIRWAY OBSTRUCT [...] (3 Yrs And Above, Im) 07/31/2011 MADL PHYSICIAN ASSISTANT PRIMARY CARE, ETELVINA L V04.81 Flu Dx (3 Yrs And Above, Im) 07/31/2011 MADL PHYSICIAN ASSISTANT PRIMARY CARE, ETELVINA L V04.81 Flu Dx (3 Yrs And Above, Im) 07/31/2011 MADL PHYSICIAN ASSISTANT PRIMARY CARE, ETELVINA L V04.81 Flu Dx (3 Yrs And Above, Im) 07/31/2011 SALGUERO DO, LADONNA K V04.81 Flu Dx (3 Yrs And Above, Im) 07/31/2011 SALGUERO DO, LADONNA K V04.81 Flu Dx (3 Yrs And Above, Im) 07/31/2011 MADL PHYSICIAN ASSISTANT PRIMARY CARE, ETELVINA L V04.81 Flu Dx (3 Yrs And Above, Im) 07/31/2011 MADL PHYSICIAN ASSISTANT PRIMARY CARE, ETELVINA L V04.81 Flu Dx (3 Yrs And Above, Im) 07/31/2011 MADL PHYSICIAN ASSISTANT PRIMARY CARE, ETELVINA L V04.81 Flu Dx (3 Yrs And Above, Im) 07/31/2011 MADL PHYSICIAN ASSISTANT PRIMARY CARE, ETELVINA L V04.81 Flu Dx (3 Yrs And Above, Im) 07/31/2011 MADL PHYSICIAN ASSISTANT PRIMARY CARE, ETELVINA L V04.81 Flu Dx (3 Yrs And Above, Im) 07/31/2011 MADL PHYSICIAN ASSISTANT PRIMARY CARE, ETELVINA L V04.81 Flu Dx (3 Yrs And Above, Im) 07/31/2011 MADL PHYSICIAN ASSISTANT PRIMARY CARE, ETELVINA L V04.81 Flu Dx (3 Yrs And Above, Im) 07/31/2011 SALGUERO DO, LADONNA K V04.81 Flu Dx (3 Yrs And Above, Im) 07/31/2011 SALGUERO DO, LADONNA K V04.81 Flu Dx (3 Yrs And Above, Im) 07/31/2011 MADL PHYSICIAN ASSISTANT PRIMARY CARE, ETELVINA L V04.81 Flu Dx (3 Yrs And Above, Im) 07/31/2011 SALGUERO DO, LADONNA K V04.81 Flu Dx (3 Yrs And Above, Im) 07/31/2011 MADL PHYSICIAN ASSISTANT PRIMARY CARE, ETELVINA L V04.81 Flu Dx (3 Yrs And Above, Im) 08/27/2011 MORGAN PHYSICIAN ASSISTANT PRIMARY CARE, LAURIE S 780.50 SLEEP DISTURBANCE, UNSPECIFIED 08/27/2011 780.50 Sleep Disturbance, Unspecified 08/27/2011 MORGAN PHYSICIAN ASSISTANT PRIMARY CARE, LAURIE S 780.50 Sleep Disturbance, Unspecified 08/27/2011 MORGAN PHYSICIAN ASSISTANT PRIMARY CARE, LAURIE S 780.50 Sleep Disturbance, Unspecified 08/27/2011 [...] K 780.50 Sleep Disturbance, Unspecified 08/27/2011 MADL PHYSICIAN ASSISTANT PRIMARY CARE, ETELVINA L 780.50 Sleep Disturbance, Unspecified 08/27/2011 MADL PHYSICIAN ASSISTANT PRIMARY CARE, ETELVINA L 780.50 Sleep Disturbance, Unspecified 08/27/2011 MADL PHYSICIAN ASSISTANT PRIMARY CARE, ETELVINA L 780.50 Sleep Disturbance, Unspecified 08/27/2011 SALGUERO DO, LADONNA K 780.50 Sleep Disturbance, Unspecified 08/27/2011 SALGUERO DO, LADONNA K 780.50 Sleep Disturbance, Unspecified 08/27/2011 MADL PHYSICIAN ASSISTANT PRIMARY CARE, ETELVINA L 780.50 Sleep Disturbance, Unspecified 08/27/2011 MADL PHYSICIAN ASSISTANT PRIMARY CARE, ETELVINA L 780.50 Sleep Disturbance, Unspecified 08/27/2011 MADL PHYSICIAN ASSISTANT PRIMARY CARE, ETELVINA L 780.50 Sleep Disturbance, Unspecified 08/27/2011 MADL PHYSICIAN ASSISTANT PRIMARY CARE, ETELVINA L 780.50 Sleep Disturbance, Unspecified 08/27/2011 MADL PHYSICIAN ASSISTANT PRIMARY CARE, ETELVINA L 780.50 Sleep Disturbance, Unspecified 08/27/2011 MADL PHYSICIAN ASSISTANT PRIMARY CARE, ETELVINA L 780.50 Sleep Disturbance, Unspecified 08/27/2011 MADL PHYSICIAN ASSISTANT PRIMARY CARE, ETELVINA L 780.50 Sleep Disturbance, Unspecified 08/27/2011 SALGUERO DO, LADONNA K 780.50 Sleep Disturbance, Unspecified 08/27/2011 SALGUERO DO, LADONNA K 780.50 Sleep Disturbance, Unspecified 08/27/2011 MADL PHYSICIAN ASSISTANT PRIMARY CARE, ETELVINA L 780.50 Sleep Disturbance, Unspecified 08/27/2011 SALGUERO DO, LADONNA K 780.50 Sleep Disturbance, Unspecified 08/27/2011 MADL PHYSICIAN ASSISTANT PRIMARY CARE, ETELVINA L 780.50 Sleep Disturbance, Unspecified 09/26/2011 MORGAN PHYSICIAN ASSISTANT PRIMARY CARE, LAURIE S 788.41 URINARY FREQUENCY 09/26/2011 MORGAN PHYSICIAN ASSISTANT PRIMARY CARE, LAURIE S 788.63 URINARY URGENCY 09/26/2011 788.41 Urinary Frequency 09/26/2011 788.63 Urinary Urgency 09/26/2011 MORGAN PHYSICIAN ASSISTANT PRIMARY CARE, LAURIE S 788.41 Urinary Frequency 09/26/2011 MORGAN PHYSICIAN ASSISTANT PRIMARY CARE, LAURIE S 788.63 Urinary Urgency 09/26/2011 MORGAN PHYSICIAN ASSISTANT PRIMARY CARE, LAURIE S 788.41 Urinary Frequency 09/26/2011 MORGAN PHYSICIAN ASSISTANT PRIMARY CARE, LAURIE S 788.63 Urinary Urgency 09/26/2011 ROMELIA [...] LADONNA K 788.63 Urinary Urgency 09/26/2011 MADL PHYSICIAN ASSISTANT PRIMARY CARE, ETELVINA L 788.41 Urinary Frequency 09/26/2011 MADL PHYSICIAN ASSISTANT PRIMARY CARE, ETELVINA L 788.63 Urinary Urgency 09/26/2011 MADL PHYSICIAN ASSISTANT PRIMARY CARE, ETELVINA L 788.41 Urinary Frequency 09/26/2011 MADL PHYSICIAN ASSISTANT PRIMARY CARE, ETELVINA L 788.63 Urinary Urgency 09/26/2011 MADL PHYSICIAN ASSISTANT PRIMARY CARE, ETELVINA L 788.41 Urinary Frequency 09/26/2011 MADL PHYSICIAN ASSISTANT PRIMARY CARE, ETELVINA L 788.63 Urinary Urgency 09/26/2011 SALGUERO DO, LADONNA K 788.41 Urinary Frequency 09/26/2011 SALGUERO DO, LADONNA K 788.63 Urinary Urgency 09/26/2011 SALGUERO DO, LADONNA K 788.41 Urinary Frequency 09/26/2011 SALGUERO DO, LADONNA K 788.63 Urinary Urgency 09/26/2011 MADL PHYSICIAN ASSISTANT PRIMARY CARE, ETELVINA L 788.41 Urinary Frequency 09/26/2011 MADL PHYSICIAN ASSISTANT PRIMARY CARE, ETELVINA L 788.63 Urinary Urgency 09/26/2011 MADL PHYSICIAN ASSISTANT PRIMARY CARE, ETELVINA L 788.41 Urinary Frequency 09/26/2011 MADL PHYSICIAN ASSISTANT PRIMARY CARE, ETELVINA L 788.63 Urinary Urgency 09/26/2011 MADL PHYSICIAN ASSISTANT PRIMARY CARE, ETELVINA L 788.41 Urinary Frequency 09/26/2011 MADL PHYSICIAN ASSISTANT PRIMARY CARE, ETELVINA L 788.63 Urinary Urgency 09/26/2011 [facility], ETELVINA L 788.41 Urinary Frequency 09/26/2011 [facility], ETELVINA L 788.63 Urinary Urgency 09/26/2011 [facility], ETELVINA L 788.41 Urinary Frequency 09/26/2011 [facility], ETELVINA L 788.63 Urinary Urgency 09/26/2011 [facility], ETELVINA L 788.41 Urinary Frequency 09/26/2011 [facility], ETELVINA L 788.63 Urinary Urgency 09/26/2011 [facility], ETELVINA L 788.41 Urinary Frequency 09/26/2011 [facility], ETELVINA L 788.63 Urinary Urgency 09/26/2011 SALGUERO DO, LADONNA K 788.41 Urinary Frequency 09/26/2011 SALGUERO DO, LADONNA K 788.63 Urinary Urgency 09/26/2011 SALGUERO DO, LADONNA K 788.41 Urinary Frequency 09/26/2011 SALGUERO DO, LADONNA K 788.63 Urinary Urgency 09/26/2011 [facility], ETELVINA L 788.41 Urinary Frequency 09/26/2011 [facility], ETELVINA L 788.63 Urinary Urgency 09/26/2011 SALGUERO DO, LADONNA K 788.41 Urinary Frequency 09/26/2011 SALGUERO DO, LADONNA K 788.63 Urinary Urgency 09/26/2011 [facility], ETELVINA L 788.41 Urinary Frequency 09/26/2011 [facility], ETELVINA L 788.63 Urinary Urgency 10/18/2011 MORGAN [...] K V65.42 Counseling - Smoking Cessation 10/18/2011 NOEMY [...] PAIN 11/11/2011 Ot 414.01 CORONARY ATHEROSCLEROSIS OF [place] CORON 11/11/2011 Ot 424.1 AORTIC VALVE DISORDER [...] LADONNA K 461.9 Sinusitis Acute 12/04/2011 [facility], ETELVINA L 461.9 Sinusitis Acute 12/04/2011 [facility], ETELVINA L 461.9 Sinusitis Acute 12/04/2011 [facility], ETELVINA L 461.9 Sinusitis Acute 12/04/2011 SALGUERO DO, LADONNA K 461.9 Sinusitis Acute 12/04/2011 SALGUERO DO, LADONNA K 461.9 Sinusitis Acute 12/04/2011 [facility], ETELVINA L 461.9 Sinusitis Acute 12/04/2011 [facility], ETELVINA L 461.9 Sinusitis Acute 12/04/2011 [facility], ETELVINA L 461.9 Sinusitis Acute 12/04/2011 [facility], ETELVINA L 461.9 Sinusitis Acute 12/04/2011 [facility], ETELVINA L 461.9 Sinusitis Acute 12/04/2011 [facility], ETELVINA L 461.9 Sinusitis Acute 12/04/2011 [facility], ETELVINA L 461.9 Sinusitis Acute 12/04/2011 SALGUERO DO, LADONNA K 461.9 Sinusitis Acute 12/04/2011 SALGUERO DO, LADONNA K 461.9 Sinusitis Acute 12/04/2011 [facility], ETELVINA L 461.9 Sinusitis Acute 12/04/2011 SALGUERO DO, LADONNA K 461.9 Sinusitis Acute 12/04/2011 [facility], ETELVINA L 461.9 Sinusitis Acute 12/19/2011 [facility], LAURIE S 486 PNEUMONIA UNSPECIFIED 12/19/2011 [facility], LAURIE S 786.2 COUGH 12/19/2011 486 Pneumonia Unspecified 12/19/2011 786.2 Cough 12/19/2011 MORGAN PHYSICIAN ASSISTANT PRIMARY CARE, LAURIE S 486 Pneumonia Unspecified 12/19/2011 MORGAN PHYSICIAN ASSISTANT PRIMARY CARE, LAURIE S 786.2 Cough 12/19/2011 MORGAN PHYSICIAN ASSISTANT PRIMARY CARE, LAURIE S 486 Pneumonia Unspecified 12/19/2011 MORGAN PHYSICIAN ASSISTANT PRIMARY CARE, LAURIE S 786.2 Cough 12/19/2011 ROMELIA FISCHER [...] DO, LADONNA K 786.2 Cough 12/19/2011 MADL PHYSICIAN ASSISTANT PRIMARY CARE, ETELVINA L 486 Pneumonia Unspecified 12/19/2011 MADL PHYSICIAN ASSISTANT PRIMARY CARE, ETELVINA L 786.2 Cough 12/19/2011 MADL PHYSICIAN ASSISTANT PRIMARY CARE, ETELVINA L 486 Pneumonia Unspecified 12/19/2011 MADL PHYSICIAN ASSISTANT PRIMARY CARE, ETELVINA L 786.2 Cough 12/19/2011 MADL PHYSICIAN ASSISTANT PRIMARY CARE, ETELVINA L 486 Pneumonia Unspecified 12/19/2011 MADL PHYSICIAN ASSISTANT PRIMARY CARE, ETELVINA L 786.2 Cough 12/19/2011 SALGUERO DO, LADONNA K 486 Pneumonia Unspecified 12/19/2011 SALGUERO DO, LADONNA K 786.2 Cough 12/19/2011 SALGUERO DO, LADONNA K 486 Pneumonia Unspecified 12/19/2011 SALGUERO DO, LADONNA K 786.2 Cough 12/19/2011 MADL PHYSICIAN ASSISTANT PRIMARY CARE, ETELVINA L 486 Pneumonia Unspecified 12/19/2011 MADL PHYSICIAN ASSISTANT PRIMARY CARE, ETELVINA L 786.2 Cough 12/19/2011 MADL PHYSICIAN ASSISTANT PRIMARY CARE, ETELVINA L 486 Pneumonia Unspecified 12/19/2011 MADL PHYSICIAN ASSISTANT PRIMARY CARE, ETELVINA L 786.2 Cough 12/19/2011 MADL PHYSICIAN ASSISTANT PRIMARY CARE, ETELVINA L 486 Pneumonia Unspecified 12/19/2011 MADL PHYSICIAN ASSISTANT PRIMARY CARE, ETELVINA L 786.2 Cough 12/19/2011 MADL PHYSICIAN ASSISTANT PRIMARY CARE, ETELVINA L 486 Pneumonia Unspecified 12/19/2011 MADL PHYSICIAN ASSISTANT PRIMARY CARE, ETELVINA L 786.2 Cough 12/19/2011 MADL PHYSICIAN ASSISTANT PRIMARY CARE, ETELVINA L 486 Pneumonia Unspecified 12/19/2011 MADL PHYSICIAN ASSISTANT PRIMARY CARE, ETELVINA L 786.2 Cough 12/19/2011 MADL PHYSICIAN ASSISTANT PRIMARY CARE, ETELVINA L 486 Pneumonia Unspecified 12/19/2011 MADL PHYSICIAN ASSISTANT PRIMARY CARE, ETELVINA L 786.2 Cough 12/19/2011 MADL PHYSICIAN ASSISTANT PRIMARY CARE, ETELVINA L 486 Pneumonia Unspecified 12/19/2011 MADL PHYSICIAN ASSISTANT PRIMARY CARE, ETELVINA L 786.2 Cough 12/19/2011 SALGUERO DO, LADONNA K 486 Pneumonia Unspecified 12/19/2011 SALGUERO DO, LADONNA K 786.2 Cough 12/19/2011 SALGUERO DO, LADONNA K 486 Pneumonia Unspecified 12/19/2011 SALGUERO DO, LADONNA K 786.2 Cough 12/19/2011 MADL PHYSICIAN ASSISTANT PRIMARY CARE, ETELVINA L 486 Pneumonia Unspecified 12/19/2011 MADL PHYSICIAN ASSISTANT PRIMARY CARE, ETELVINA L 786.2 Cough 12/19/2011 SALGUERO DO, LADONNA K 486 Pneumonia Unspecified 12/19/2011 SALGUERO DO, LADONNA K 786.2 Cough 12/19/2011 MADL PHYSICIAN ASSISTANT PRIMARY CARE, ETELVINA L 486 Pneumonia Unspecified 12/19/2011 MADL PHYSICIAN ASSISTANT PRIMARY CARE, ETELVINA L 786.2 Cough 01/06/2012 MORGAN HARRIS LAURIE S 491.9 BRONCHITIS, CHRONIC UNSPEC 01/06/2012 PALOMA MORA APRNNDA S 780.79 MALAISE AND FATIGUE 01/06/2012 491.9 Bronchitis, Chronic Unspec 01/06/2012 780.79 Malaise And Fatigue 01/06/2012 MORGAN PHYSICIAN ASSISTANT PRIMARY CARE, LAURIE S 491.9 Bronchitis, Chronic Unspec 01/06/2012 MORGAN PHYSICIAN ASSISTANT PRIMARY CARE, LAURIE S 780.79 Malaise And Fatigue 01/06/2012 MORGAN PHYSICIAN ASSISTANT PRIMARY CARE, LAURIE S 491.9 Bronchitis, Chronic Unspec 01/06/2012 MORGAN PHYSICIAN ASSISTANT PRIMARY CARE, LAURIE S 780.79 Malaise And Fatigue 01/06/2012 [...] K 780.79 Malaise And Fatigue 01/06/2012 MADL PHYSICIAN ASSISTANT PRIMARY CARE, ETELVINA L 491.9 Bronchitis, Chronic Unspec 01/06/2012 MADL PHYSICIAN ASSISTANT PRIMARY CARE, ETELVINA L 780.79 Malaise And Fatigue 01/06/2012 MADL PHYSICIAN ASSISTANT PRIMARY CARE, ETELVINA L 491.9 Bronchitis, Chronic Unspec 01/06/2012 MADL PHYSICIAN ASSISTANT PRIMARY CARE, ETELVINA L 780.79 Malaise And Fatigue 01/06/2012 MADL PHYSICIAN ASSISTANT PRIMARY CARE, ETELVINA L 491.9 Bronchitis, Chronic Unspec 01/06/2012 MADL PHYSICIAN ASSISTANT PRIMARY CARE, ETELVINA L 780.79 Malaise And Fatigue 01/06/2012 SALGUERO DO, LADONNA K 491.9 Bronchitis, Chronic Unspec 01/06/2012 SALGUERO DO, LADONNA K 780.79 Malaise And Fatigue 01/06/2012 SALGUERO DO, LADONNA K 491.9 Bronchitis, Chronic Unspec 01/06/2012 SALGUERO DO, LADONNA K 780.79 Malaise And Fatigue 01/06/2012 MADL PHYSICIAN ASSISTANT PRIMARY CARE, ETELVINA L 491.9 Bronchitis, Chronic Unspec 01/06/2012 MADL PHYSICIAN ASSISTANT PRIMARY CARE, ETELVINA L 780.79 Malaise And Fatigue 01/06/2012 MADL PHYSICIAN ASSISTANT PRIMARY CARE, ETELVINA L 491.9 Bronchitis, Chronic Unspec 01/06/2012 MADL PHYSICIAN ASSISTANT PRIMARY CARE, ETELVINA L 780.79 Malaise And Fatigue 01/06/2012 MADL PHYSICIAN ASSISTANT PRIMARY CARE, ETELVINA L 491.9 Bronchitis, Chronic Unspec 01/06/2012 MADL PHYSICIAN ASSISTANT PRIMARY CARE, ETELVINA L 780.79 Malaise And Fatigue 01/06/2012 MADL PHYSICIAN ASSISTANT PRIMARY CARE, ETELVINA L 491.9 Bronchitis, Chronic Unspec 01/06/2012 MADL PHYSICIAN ASSISTANT PRIMARY CARE, ETELVINA L 780.79 Malaise And Fatigue 01/06/2012 MADL PHYSICIAN ASSISTANT PRIMARY CARE, ETELVINA L 491.9 Bronchitis, Chronic Unspec 01/06/2012 MADL PHYSICIAN ASSISTANT PRIMARY CARE, ETELVINA L 780.79 Malaise And Fatigue 01/06/2012 MADL PHYSICIAN ASSISTANT PRIMARY CARE, ETELVINA L 491.9 Bronchitis, Chronic Unspec 01/06/2012 MADL PHYSICIAN ASSISTANT PRIMARY CARE, ETELVINA L 780.79 Malaise And Fatigue 01/06/2012 MADL PHYSICIAN ASSISTANT PRIMARY CARE, ETELVINA L 491.9 Bronchitis, Chronic Unspec 01/06/2012 MADL PHYSICIAN ASSISTANT PRIMARY CARE, ETELVINA L 780.79 Malaise And Fatigue 01/06/2012 SALGUERO DO, LADONNA K 491.9 Bronchitis, Chronic Unspec 01/06/2012 SALGUERO DO, LADONNA K 780.79 Malaise And Fatigue 01/06/2012 SALGUERO DO, LADONNA K 491.9 Bronchitis, Chronic Unspec 01/06/2012 SALGUERO DO, LADONNA K 780.79 Malaise And Fatigue 01/06/2012 MADL PHYSICIAN ASSISTANT PRIMARY CAREETELVINA Bowser L 491.9 Bronchitis, Chronic Unspec 01/06/2012 MADL PHYSICIAN ASSISTANT PRIMARY CARE ETELVINA L 780.79 Malaise And Fatigue 01/06/2012 SALGUERO DO, LADONNA K 491.9 Bronchitis, Chronic Unspec 01/06/2012 SALGUERO DO, LADONNA K 780.79 Malaise And Fatigue 01/06/2012 MADL PHYSICIAN ASSISTANT PRIMARY CARE, ETELVINA L 491.9 Bronchitis, Chronic Unspec 01/06/2012 HUGOL PHYSICIAN ASSISTANT PRIMARY CARE ETELVINA L 780.79 Malaise And Fatigue 01/30/2012 [...] NOS 01/30/2012 Ot 414.01 CORONARY ATHEROSCLEROSIS OF [place] CORON 01/30/2012 Ot 424.1 AORTIC VALVE DISORDER [...] DISORDER 02/02/2012 Ot 414.01 CORONARY ATHEROSCLEROSIS OF [place] CORON 02/02/2012 Ot 458.9 HYPOTENSION NOS 02/02/2012 [...] Angioneurotic Edema Not Elsewhere Classified 02/04/2012 MADL PHYSICIAN ASSISTANT PRIMARY CARE, ETELVINA L 728.88 Rhabdomyolysis 02/04/2012 MADL PHYSICIAN ASSISTANT PRIMARY CARE, ETELVINA L 995.1 Angioneurotic Edema Not Elsewhere Classified 02/04/2012 MADL PHYSICIAN ASSISTANT PRIMARY CARE, ETELVINA L 728.88 Rhabdomyolysis 02/04/2012 MADL PHYSICIAN ASSISTANT PRIMARY CARE, ETELVINA L 995.1 Angioneurotic Edema Not Elsewhere Classified 02/04/2012 MADL PHYSICIAN ASSISTANT PRIMARY CARE, ETELVINA L 728.88 Rhabdomyolysis 02/04/2012 MADL PHYSICIAN ASSISTANT PRIMARY CARE, ETELVINA L 995.1 Angioneurotic Edema Not Elsewhere Classified 02/04/2012 SALGUERO DO, LADONNA K 728.88 Rhabdomyolysis 02/04/2012 SALGUERO DO, LADONNA K 995.1 Angioneurotic Edema Not Elsewhere Classified 02/04/2012 SALGUERO DO, LADONNA K 728.88 Rhabdomyolysis 02/04/2012 SALGUERO DO, LADONNA K 995.1 Angioneurotic Edema Not Elsewhere Classified 02/04/2012 MADL PHYSICIAN ASSISTANT PRIMARY CARE, ETELVINA L 728.88 Rhabdomyolysis 02/04/2012 MADL PHYSICIAN ASSISTANT PRIMARY CARE, ETELVINA L 995.1 Angioneurotic Edema Not Elsewhere Classified 02/04/2012 MADL PHYSICIAN ASSISTANT PRIMARY CARE, ETELVINA L 728.88 Rhabdomyolysis 02/04/2012 MADL PHYSICIAN ASSISTANT PRIMARY CARE, ETELVINA L 995.1 Angioneurotic Edema Not Elsewhere Classified 02/04/2012 MADL PHYSICIAN ASSISTANT PRIMARY CARE, ETELVINA L 728.88 Rhabdomyolysis 02/04/2012 MADL PHYSICIAN ASSISTANT PRIMARY CARE, ETELVINA L 995.1 Angioneurotic Edema Not Elsewhere Classified 02/04/2012 MADL PHYSICIAN ASSISTANT PRIMARY CARE, ETELVINA L 728.88 Rhabdomyolysis 02/04/2012 MADL PHYSICIAN ASSISTANT PRIMARY CARE, ETELVINA L 995.1 Angioneurotic Edema Not Elsewhere Classified 02/04/2012 MADL PHYSICIAN ASSISTANT PRIMARY CARE, ETELVINA L 728.88 Rhabdomyolysis 02/04/2012 MADL PHYSICIAN ASSISTANT PRIMARY CARE, ETELVINA L 995.1 Angioneurotic Edema Not Elsewhere Classified 02/04/2012 MADL PHYSICIAN ASSISTANT PRIMARY CARE, ETELVINA L 728.88 Rhabdomyolysis 02/04/2012 MADL PHYSICIAN ASSISTANT PRIMARY CARE, ETELVINA L 995.1 Angioneurotic Edema Not Elsewhere Classified 02/04/2012 MADL PHYSICIAN ASSISTANT PRIMARY CARE, ETELVINA L 728.88 Rhabdomyolysis 02/04/2012 MADL PHYSICIAN ASSISTANT PRIMARY CARE, ETELVINA L 995.1 Angioneurotic Edema Not Elsewhere Classified 02/04/2012 SALGUERO DO, LADONNA K 728.88 Rhabdomyolysis 02/04/2012 SALGUERO DO, LADONNA K 995.1 Angioneurotic Edema Not Elsewhere Classified 02/04/2012 SALGUERO DO, LADONNA K 728.88 Rhabdomyolysis 02/04/2012 SALGUERO DO, LADONNA K 995.1 Angioneurotic Edema Not Elsewhere Classified 02/04/2012 MADL PHYSICIAN ASSISTANT PRIMARY CARE, ETELVINA L 728.88 Rhabdomyolysis 02/04/2012 MADL PHYSICIAN ASSISTANT PRIMARY CARE, ETELVINA L 995.1 Angioneurotic Edema Not Elsewhere Classified 02/04/2012 SALGUERO DO, LADONNA K 728.88 Rhabdomyolysis 02/04/2012 SALGUERO DO, LADONNA K 995.1 Angioneurotic Edema Not Elsewhere Classified 02/04/2012 MADL PHYSICIAN ASSISTANT PRIMARY CARE, TEELVINA L 728.88 Rhabdomyolysis 02/04/2012 MADL PHYSICIAN ASSISTANT PRIMARY CARE, ETELVINA L 995.1 Angioneurotic Edema Not Elsewhere [...] DO, LADONNA K 782.3 EDEMA 02/06/2012 MADL PHYSICIAN ASSISTANT PRIMARY CARE, ETELVINA L 782.3 EDEMA 02/06/2012 MADL PHYSICIAN ASSISTANT PRIMARY CARE, ETELVINA L 782.3 EDEMA 02/06/2012 MADL PHYSICIAN ASSISTANT PRIMARY CARE, ETELVINA L 782.3 EDEMA 02/06/2012 SALGUERO DO, LADONNA K 782.3 EDEMA 02/06/2012 SALGUERO DO, LADONNA K 782.3 EDEMA 02/06/2012 MADL PHYSICIAN ASSISTANT PRIMARY CARE, ETELVINA L 782.3 EDEMA 02/06/2012 MADL PHYSICIAN ASSISTANT PRIMARY CARE, ETELVINA L 782.3 EDEMA 02/06/2012 MADL PHYSICIAN ASSISTANT PRIMARY CARE, ETELVINA L 782.3 EDEMA 02/06/2012 MADL PHYSICIAN ASSISTANT PRIMARY CARE, ETELVINA L 782.3 EDEMA 02/06/2012 MADL PHYSICIAN ASSISTANT PRIMARY CARE, ETELVINA L 782.3 EDEMA 02/06/2012 MADL PHYSICIAN ASSISTANT PRIMARY CARE, ETELVINA L 782.3 EDEMA 02/06/2012 MADL PHYSICIAN ASSISTANT PRIMARY CARE, ETELVINA L 782.3 EDEMA 02/06/2012 SALGUERO DO, LADONNA K 782.3 EDEMA 02/06/2012 SALGUERO DO, LADONNA K 782.3 EDEMA 02/06/2012 MADL PHYSICIAN ASSISTANT PRIMARY CARE, ETELVINA L 782.3 EDEMA 02/06/2012 SALGUERO DO, LADONNA K 782.3 EDEMA 02/06/2012 MADL PHYSICIAN ASSISTANT PRIMARY CARE, ETELVINA L 782.3 EDEMA 02/11/2012 MORGAN PHYSICIAN ASSISTANT PRIMARY CARE, LAURIE S 079.99 VIRAL SYNDROME 02/11/2012 079.99 Viral Syndrome 02/11/2012 MORGAN PHYSICIAN ASSISTANT PRIMARY CARE, LAURIE S 079.99 Viral Syndrome 02/11/2012 MORGAN PHYSICIAN ASSISTANT PRIMARY CARE, LAURIE S 079.99 Viral Syndrome 02/11/2012 ROMELIA [...] DOA K 079.99 Viral Syndrome 02/11/2012 MADL PHYSICIAN ASSISTANT PRIMARY CARE, ETELVINA L 079.99 Viral Syndrome 02/11/2012 MADL PHYSICIAN ASSISTANT PRIMARY CARE, ETELVINA L 079.99 Viral Syndrome 02/11/2012 MADL PHYSICIAN ASSISTANT PRIMARY CARE, ETELVINA L 079.99 Viral Syndrome 02/11/2012 NOEMY PRAKASH LADONNA K 079.99 Viral Syndrome 02/11/2012 SALGUERO DO LADONNA K 079.99 Viral Syndrome 02/11/2012 MADL PHYSICIAN ASSISTANT PRIMARY CARE, ETELVINA L 079.99 Viral Syndrome 02/11/2012 MADL PHYSICIAN ASSISTANT PRIMARY CARE, ETELVINA L 079.99 Viral Syndrome 02/11/2012 MADL PHYSICIAN ASSISTANT PRIMARY CARE, ETELVINA L 079.99 Viral Syndrome 02/11/2012 MADL PHYSICIAN ASSISTANT PRIMARY CARE, ETELVINA L 079.99 Viral Syndrome 02/11/2012 MADL PHYSICIAN ASSISTANT PRIMARY CARE, ETELVINA L 079.99 Viral Syndrome 02/11/2012 MADL PHYSICIAN ASSISTANT PRIMARY CARE, ETELVINA L 079.99 Viral Syndrome 02/11/2012 MADL PHYSICIAN ASSISTANT PRIMARY CARE, ETELVINA L 079.99 Viral Syndrome 02/11/2012 SALGUERO DO, LADONNA K 079.99 Viral Syndrome 02/11/2012 SALGUERO DO, LADONNA K 079.99 Viral Syndrome 02/11/2012 MADL PHYSICIAN ASSISTANT PRIMARY CARE, ETELVINA L 079.99 Viral Syndrome 02/11/2012 SALGUERO DO, LADONNA K 079.99 Viral Syndrome 02/11/2012 MADL PHYSICIAN ASSISTANT PRIMARY CARE, ETELVINA L 079.99 Viral Syndrome 02/17/2012 SUSHANT [...] LADONNA K 783.21 Weight Loss 02/17/2012 MADL PHYSICIAN ASSISTANT PRIMARY CARE, ETELVINA L 783.21 Weight Loss 02/17/2012 MADL PHYSICIAN ASSISTANT PRIMARY CARE, ETELVINA L 783.21 Weight Loss 02/17/2012 MADL PHYSICIAN ASSISTANT PRIMARY CARE, ETELVINA L 783.21 Weight Loss 02/17/2012 SALGUERO DO, LADONNA K 783.21 Weight Loss 02/17/2012 SALGUERO DO, LADONNA K 783.21 Weight Loss 02/17/2012 MADL PHYSICIAN ASSISTANT PRIMARY CARE, ETELVINA L 783.21 Weight Loss 02/17/2012 MADL PHYSICIAN ASSISTANT PRIMARY CARE, ETELVINA L 783.21 Weight Loss 02/17/2012 MADL PHYSICIAN ASSISTANT PRIMARY CARE, ETELVINA L 783.21 Weight Loss 02/17/2012 MADL PHYSICIAN ASSISTANT PRIMARY CARE, ETELVINA L 783.21 Weight Loss 02/17/2012 MADL PHYSICIAN ASSISTANT PRIMARY CARE, ETELVINA L 783.21 Weight Loss 02/17/2012 MADL PHYSICIAN ASSISTANT PRIMARY CARE, ETELVINA L 783.21 Weight Loss 02/17/2012 MADL PHYSICIAN ASSISTANT PRIMARY CARE, ETELVINA L 783.21 Weight Loss 02/17/2012 SALGUERO DO, LADONNA K 783.21 Weight Loss 02/17/2012 SALGUERO DO, LADONNA K 783.21 Weight Loss 02/17/2012 MADL PHYSICIAN ASSISTANT PRIMARY CARE, ETELVINA L 783.21 Weight Loss 02/17/2012 SALGUERO DO, LADONNA K 783.21 Weight Loss 02/17/2012 MADL PHYSICIAN ASSISTANT PRIMARY CARE, ETELVINA L 783.21 Weight Loss 02/24/2012 MORGAN [...] 02/24/2012 BYRON BOSS MD 787.91 Diarrhea 02/24/2012 YBRON BOSS MD 787.91 Diarrhea 02/24/2012 SALGUERO DO, LADONNA K 787.91 Diarrhea 02/24/2012 SALGUERO DO, LADONNA K 787.91 Diarrhea 02/24/2012 SALGUERO DO, LADONNA K 787.91 Diarrhea 02/24/2012 SALGUERO DO, LADONNA K 787.91 Diarrhea 02/24/2012 MADL PHYSICIAN ASSISTANT PRIMARY CARE, ETELVINA L 787.91 Diarrhea 02/24/2012 MADL PHYSICIAN ASSISTANT PRIMARY CARE, ETELVINA L 787.91 Diarrhea 02/24/2012 MADL PHYSICIAN ASSISTANT PRIMARY CARE, ETELVINA L 787.91 Diarrhea 02/24/2012 SALGUERO DO, LADONNA K 787.91 Diarrhea 02/24/2012 SALGUERO DO, LADONNA K 787.91 Diarrhea 02/24/2012 MADL PHYSICIAN ASSISTANT PRIMARY CARE, ETELVINA L 787.91 Diarrhea 02/24/2012 MADL PHYSICIAN ASSISTANT PRIMARY CARE, ETELVINA L 787.91 Diarrhea 02/24/2012 MADL PHYSICIAN ASSISTANT PRIMARY CARE, ETELVINA L 787.91 Diarrhea 02/24/2012 MADL PHYSICIAN ASSISTANT PRIMARY CARE, ETELVINA L 787.91 Diarrhea 02/24/2012 MADL PHYSICIAN ASSISTANT PRIMARY CARE, ETELVINA L 787.91 Diarrhea 02/24/2012 MADL PHYSICIAN ASSISTANT PRIMARY CARE, ETELVINA L 787.91 Diarrhea 02/24/2012 MADL PHYSICIAN ASSISTANT PRIMARY CARE, ETELVINA L 787.91 Diarrhea 02/24/2012 SALGUERO DO, LADONNA K 787.91 Diarrhea 02/24/2012 SALGUERO DO, LADONNA K 787.91 Diarrhea 02/24/2012 MADL PHYSICIAN ASSISTANT PRIMARY CARE, ETELVINA L 787.91 Diarrhea 02/24/2012 SALGUERO DO, LADONNA K 787.91 Diarrhea 02/24/2012 MADL PHYSICIAN ASSISTANT PRIMARY CARE, ETELVINA L 787.91 Diarrhea 04/07/2012 MORGAN PHYSICIAN ASSISTANT PRIMARY CARELAURIE S 787.20 DYSPHAGIA, UNSPECIFIED 04/07/2012 787.20 Dysphagia, Unspecified 04/07/2012 MORGAN PHYSICIAN ASSISTANT PRIMARY CARELAURIE S 787.20 Dysphagia, Unspecified 04/07/2012 MORGAN PHYSICIAN ASSISTANT PRIMARY CARELAURIE S 787.20 Dysphagia, Unspecified 04/07/2012 AMADO OLVERA, [...] LADONNA K 787.20 Dysphagia, Unspecified 04/07/2012 MADL PHYSICIAN ASSISTANT PRIMARY CARE, ETELVINA L 787.20 Dysphagia, Unspecified 04/07/2012 MADL PHYSICIAN ASSISTANT PRIMARY CARE, ETELVINA L 787.20 Dysphagia, Unspecified 04/07/2012 MADL PHYSICIAN ASSISTANT PRIMARY CARE, ETELVINA L 787.20 Dysphagia, Unspecified 04/07/2012 SALGUERO DO, LADONNA K 787.20 Dysphagia, Unspecified 04/07/2012 SALGUERO DO, LADONNA K 787.20 Dysphagia, Unspecified 04/07/2012 MADL PHYSICIAN ASSISTANT PRIMARY CARE, ETELVINA L 787.20 Dysphagia, Unspecified 04/07/2012 MADL PHYSICIAN ASSISTANT PRIMARY CARE, ETELVINA L 787.20 Dysphagia, Unspecified 04/07/2012 MADL PHYSICIAN ASSISTANT PRIMARY CARE, ETELVINA L 787.20 Dysphagia, Unspecified 04/07/2012 MADL PHYSICIAN ASSISTANT PRIMARY CARE, ETELVINA L 787.20 Dysphagia, Unspecified 04/07/2012 MADL PHYSICIAN ASSISTANT PRIMARY CARE, ETELVINA L 787.20 Dysphagia, Unspecified 04/07/2012 MADL PHYSICIAN ASSISTANT PRIMARY CARE, ETELVINA L 787.20 Dysphagia, Unspecified 04/07/2012 MADL PHYSICIAN ASSISTANT PRIMARY CARE, ETELVINA L 787.20 Dysphagia, Unspecified 04/07/2012 SALGUERO DO, LADONNA K 787.20 Dysphagia, Unspecified 04/07/2012 SALGUERO DO, LADONNA K 787.20 Dysphagia, Unspecified 04/07/2012 MADL PHYSICIAN ASSISTANT PRIMARY CARE, ETELVINA L 787.20 Dysphagia, Unspecified 04/07/2012 SALGUERO DO, LADONNA K 787.20 Dysphagia, Unspecified 04/07/2012 MADL PHYSICIAN ASSISTANT PRIMARY CARE, ETELVINA L 787.20 Dysphagia, Unspecified 04/16/2012 Ot [...] Cervical Cancer Screening (pap Smear) 09/07/2012 MADMaxine PHYSICIAN ASSISTANT PRIMARY CARE, ETELVINA L V03.82 Ppv23 (pneumovax) Dx 09/07/2012 MADMaxine PHYSICIAN ASSISTANT PRIMARY CARE, ETELVINA L V76.10 Breast Cancer Screening 09/07/2012 MADL PHYSICIAN ASSISTANT PRIMARY CARE, ETELVINA L V76.12 Mammogram Screening 09/07/2012 MADMaxine PHYSICIAN ASSISTANT PRIMARY CARE, ETELVINA L V76.2 Cervical Cancer Screening (pap Smear) 09/07/2012 MADMaxine PHYSICIAN ASSISTANT PRIMARY CARE, ETELVINA L V03.82 Ppv23 (pneumovax) Dx 09/07/2012 MADMaxine PHYSICIAN ASSISTANT PRIMARY CARE, ETELVINA L V76.10 Breast Cancer Screening 09/07/2012 MADL PHYSICIAN ASSISTANT PRIMARY CARE, ETELVINA L V76.12 Mammogram Screening 09/07/2012 MADL PHYSICIAN ASSISTANT PRIMARY CARE, ETELVINA L V76.2 Cervical Cancer Screening (pap Smear) 09/07/2012 MADL PHYSICIAN ASSISTANT PRIMARY CARE, TEELVINA L V03.82 Ppv23 (pneumovax) Dx 09/07/2012 MADL PHYSICIAN ASSISTANT PRIMARY CARE, ETELVINA L V76.10 Breast Cancer Screening 09/07/2012 MADL PHYSICIAN ASSISTANT PRIMARY CARE, ETELVINA L V76.12 Mammogram Screening 09/07/2012 MADL PHYSICIAN ASSISTANT PRIMARY CARE, ETELVINA L V76.2 Cervical Cancer Screening (pap [...] Cervical Cancer Screening (pap Smear) 09/07/2012 MADL PHYSICIAN ASSISTANT PRIMARY CARE, ETELVINA L V03.82 Ppv23 (pneumovax) Dx 09/07/2012 MADL PHYSICIAN ASSISTANT PRIMARY CARE, ETELVINA L V76.10 Breast Cancer Screening 09/07/2012 MADL PHYSICIAN ASSISTANT PRIMARY CARE, ETELVINA L V76.12 Mammogram Screening 09/07/2012 MADL PHYSICIAN ASSISTANT PRIMARY CARE, ETELVINA L V76.2 Cervical Cancer Screening (pap Smear) 09/07/2012 MADL PHYSICIAN ASSISTANT PRIMARY CARE, ETELVINA L V03.82 Ppv23 (pneumovax) Dx 09/07/2012 MADL PHYSICIAN ASSISTANT PRIMARY CARE, ETELVINA L V76.10 Breast Cancer Screening 09/07/2012 MADL PHYSICIAN ASSISTANT PRIMARY CARE, ETELVINA L V76.12 Mammogram Screening 09/07/2012 MADL PHYSICIAN ASSISTANT PRIMARY CARE, ETELVINA L V76.2 Cervical Cancer Screening (pap Smear) 09/07/2012 MADL PHYSICIAN ASSISTANT PRIMARY CARE, ETELVINA L V03.82 Ppv23 (pneumovax) Dx 09/07/2012 MAD PHYSICIAN ASSISTANT PRIMARY CARE, ETELVINA L V76.10 Breast Cancer Screening 09/07/2012 MAD PHYSICIAN ASSISTANT PRIMARY CARE, ETELVINA L V76.12 Mammogram Screening 09/07/2012 MAD PHYSICIAN ASSISTANT PRIMARY CARE, ETELVINA L V76.2 Cervical Cancer Screening (pap Smear) 09/07/2012 MAD PHYSICIAN ASSISTANT PRIMARY CARE, ETELVINA L V03.82 Ppv23 (pneumovax) Dx 09/07/2012 MAD PHYSICIAN ASSISTANT PRIMARY CARE, ETELVINA L V76.10 Breast Cancer Screening 09/07/2012 [facility] PHYSICIAN ASSISTANT PRIMARY CARE, ETELVINA L V76.12 Mammogram Screening 09/07/2012 [facility] PHYSICIAN ASSISTANT PRIMARY CARE, ETELVINA L V76.2 Cervical Cancer Screening (pap Smear) 09/07/2012 MAD PHYSICIAN ASSISTANT PRIMARY CARE, ETELVINA L V03.82 Ppv23 (pneumovax) Dx 09/07/2012 [facility] PHYSICIAN ASSISTANT PRIMARY CARE, ETELVINA L V76.10 Breast Cancer Screening 09/07/2012 [facility] PHYSICIAN ASSISTANT PRIMARY CARE, ETELVINA L V76.12 Mammogram Screening 09/07/2012 [facility] PHYSICIAN ASSISTANT PRIMARY CARE, ETELVINA L V76.2 Cervical Cancer Screening (pap Smear) 09/07/2012 MAD PHYSICIAN ASSISTANT PRIMARY CARE, ETELVINA L V03.82 Ppv23 (pneumovax) Dx 09/07/2012 MAD PHYSICIAN ASSISTANT PRIMARY CARE, ETELVINA L V76.10 Breast Cancer Screening 09/07/2012 [facility] PHYSICIAN ASSISTANT PRIMARY CARE, ETELVINA L V76.12 Mammogram Screening 09/07/2012 [facility] PHYSICIAN ASSISTANT PRIMARY CARE, ETELVINA L V76.2 Cervical Cancer Screening (pap Smear) 09/07/2012 [facility] C[facility], ETELVINA L V03.82 Ppv23 (pneumovax) Dx 09/07/2012 [facility], ETELVINA L V76.10 Breast Cancer Screening 09/07/2012 [facility], ETELVINA L V76.12 Mammogram Screening 09/07/2012 [facility] C[facility], ETELVINA L V76.2 Cervical Cancer Screening (pap [...] Cervical Cancer Screening (pap Smear) 09/07/2012 [facility] PHYSICIAN ASSISTANT PRIMARY CAREHAMMADA L V03.82 Ppv23 (pneumovax) Dx 09/07/2012 [facility]IMARY C[facility], ETELVINA L V76.10 Breast Cancer Screening 09/07/2012 [facility]IMARY [facility], ETELVINA L V76.12 Mammogram Screening 09/07/2012 [facility]ICIAN ASSISTANT PRIMARY CAREHAMMAD BowserA L V76.2 Cervical Cancer Screening (pap Smear) 09/07/2012 NOEMY PRAKASH LADONNA K V03.82 Ppv23 (pneumovax) Dx 09/07/2012 TERE SALGUERO DOA K V76.10 Breast Cancer Screening 09/07/2012 TERE SALGUERO DOA K V76.12 Mammogram Screening 09/07/2012 TERE SALGUERO DOA K V76.2 Cervical Cancer Screening (pap Smear) 09/07/2012 [facility], ETELVINA L V03.82 Ppv23 (pneumovax) Dx 09/07/2012 [facility] PRIMARY C[facility], ETELVINA L V76.10 Breast Cancer Screening 09/07/2012 [facility]IMARY C[facility], ETELVINA L V76.12 Mammogram Screening 09/07/2012 [facility] PRIMARY CARE, ETELVINA L V76.2 Cervical Cancer Screening (pap Smear) 09/08/2012 Ot 305.1 TOBACCO USE DISORDER 09/08/2012 Ot 466.0 ACUTE BRONCHITIS 09/08/2012 Ot 786.2 COUGH 09/19/2012 Ot 305.1 TOBACCO USE DISORDER 09/19/2012 Ot 491.9 CHRONIC BRONCHITIS NOS 09/19/2012 Ot 780.79 OTH MALAISE FATIGUE 10/22/2012 [facility], LAURIE S V58.69 high risk medication 10/22/2012 [...] medication for a long time 10/22/2012 BYRON BSOS MD V58.69 taking high-risk medication for a [...] medication for a long time 10/22/2012 [facility], ETELVINA L V58.69 taking high-risk medication for a long time 10/22/2012 [facility]ICIAN ASSISTANT PRIMARY CAREHAMMADA L V58.69 taking high-risk medication for a long time 10/22/2012 LADONNA SALGUERO DO K V58.69 taking high-risk medication for a long time 10/22/2012 LADONNA SALGUERO DO K V58.69 taking high-risk medication for a long time 10/22/2012 [facility]IC[facility] ASSISTANT PRIMARY CAREETELVINA L V58.69 taking high-risk medication for a long time 10/22/2012 [facility] PRIMARY CARE ETELVINA L V58.69 taking high-risk medication for a long time 10/22/2012 [facility] PHYSICIAN ASSISTANT PRIMARY CAREHAMMADA L V58.69 taking high-risk medication for a long time 10/22/2012 [facility] PHYSICIAN ASSISTANT PRIMARY CAREHAMMADA L V58.69 taking high-risk medication for a long time 10/22/2012 [facility]IC[facility] ASSISTANT PRIMARY CAREHAMMAD BowserA L V58.69 taking high-risk medication for a long time 10/22/2012 [facility] PHYSICIAN ASSISTANT PRIMARY CAREHAMMADA L V58.69 taking high-risk medication for a long time 10/22/2012 [facility] PRIMARY CARE ETELVINA L V58.69 taking high-risk medication for a long time 10/22/2012 LADONNA SALGUERO DO K V58.69 taking high-risk medication for a long time 10/22/2012 LADONNA SALGUERO DO K V58.69 taking high-risk medication for a long time 10/22/2012 [facility]IC[facility] ASSISTANT PRIMARY CAREETELVINA Bowser L V58.69 taking high-risk medication for a long time 10/22/2012 LADONNA SALGUERO DO K V58.69 taking high-risk medication for a long time 10/22/2012 MADL PHYSICIAN ASSISTANT PRIMARY CAREHAMMAD BowserA L V58.69 taking high-risk medication for a long time 10/26/2012 Ot 250.00 DIAB MELVA WO COMPL, TYPE II OR UNSPEC TY 10/26/2012 Ot 278.00 OBESITY, NOS 10/26/2012 Ot 300.00 ANXIETY STATE NOS 10/26/2012 Ot 305.1 TOBACCO USE DISORDER 10/26/2012 Ot 311 DEPRESSIVE DISORDER NEC 10/26/2012 Ot 401.9 HYPERTENSION NOS 10/26/2012 Ot 414.01 CORONARY ATHEROSCLEROSIS OF [place] CORON 10/26/2012 Ot 491.21 OBSTR CHRONIC BRONCHITIS, [...] K 465.9 UPPER RESPIRATORY INFECTION 11/01/2012 MADL PHYSICIAN ASSISTANT PRIMARY CARE, ETELVINA L 465.9 UPPER RESPIRATORY INFECTION 11/01/2012 MADL PHYSICIAN ASSISTANT PRIMARY CARE, ETELVINA L 465.9 UPPER RESPIRATORY INFECTION 11/01/2012 MADL PHYSICIAN ASSISTANT PRIMARY CARE, ETELVINA L 465.9 UPPER RESPIRATORY INFECTION 11/01/2012 SALGUERO DO, LADONNA K 465.9 UPPER RESPIRATORY INFECTION 11/01/2012 SALGUERO DO, LADONNA K 465.9 UPPER RESPIRATORY INFECTION 11/01/2012 MADL PHYSICIAN ASSISTANT PRIMARY CARE, ETELVINA L 465.9 UPPER RESPIRATORY INFECTION 11/01/2012 MADL PHYSICIAN ASSISTANT PRIMARY CARE, ETELVINA L 465.9 UPPER RESPIRATORY INFECTION 11/01/2012 MADL PHYSICIAN ASSISTANT PRIMARY CARE, ETELVINA L 465.9 UPPER RESPIRATORY INFECTION 11/01/2012 MADL PHYSICIAN ASSISTANT PRIMARY CARE, ETELVINA L 465.9 UPPER RESPIRATORY INFECTION 11/01/2012 MADL PHYSICIAN ASSISTANT PRIMARY CARE, ETELVINA L 465.9 UPPER RESPIRATORY INFECTION 11/01/2012 MADL PHYSICIAN ASSISTANT PRIMARY CARE, ETELVINA L 465.9 UPPER RESPIRATORY INFECTION 11/01/2012 MADL PHYSICIAN ASSISTANT PRIMARY CARE, ETELVINA L 465.9 UPPER RESPIRATORY INFECTION 11/01/2012 SALGUERO DO, LADONNA K 465.9 UPPER RESPIRATORY INFECTION 11/01/2012 SALGUERO DO, LADONNA K 465.9 UPPER RESPIRATORY INFECTION 11/01/2012 MADL PHYSICIAN ASSISTANT PRIMARY CARE, ETELVINA L 465.9 UPPER RESPIRATORY INFECTION 11/01/2012 SALGUERO DO, LADONNA K 465.9 UPPER RESPIRATORY INFECTION 11/01/2012 MADL PHYSICIAN ASSISTANT PRIMARY CARE, ETELVINA L 465.9 UPPER RESPIRATORY INFECTION 11/13/2012 Ot 250.00 DIAB MELVA WO COMPL, TYPE II OR UNSPEC TY 11/13/2012 Ot 272.4 HYPERLIPIDEMIA NEC/NOS 11/13/2012 Ot 278.00 OBESITY, NOS 11/13/2012 Ot 300.00 ANXIETY STATE NOS 11/13/2012 Ot 305.1 TOBACCO USE DISORDER 11/13/2012 Ot 311 DEPRESSIVE DISORDER NEC 11/13/2012 Ot 401.9 HYPERTENSION NOS 11/13/2012 Ot 414.01 CORONARY ATHEROSCLEROSIS OF [place] CORON 11/13/2012 Ot 458.9 HYPOTENSION NOS 11/13/2012 [...] BYRON M 244.9 HYPOTHYROIDISM 12/02/2012 SALGUERO DO, LDAONNA K 244.9 HYPOTHYROIDISM 12/02/2012 SALGUERO DO, LADONNA K 244.9 HYPOTHYROIDISM 12/02/2012 SALGUERO DO, LADONNA K 244.9 HYPOTHYROIDISM 12/02/2012 SALGUERO DO, LADONNA K 244.9 HYPOTHYROIDISM 12/02/2012 MADL PHYSICIAN ASSISTANT PRIMARY CARE, ETELVINA L 244.9 HYPOTHYROIDISM 12/02/2012 MADL PHYSICIAN ASSISTANT PRIMARY CARE, ETELVINA L 244.9 HYPOTHYROIDISM 12/02/2012 MADL PHYSICIAN ASSISTANT PRIMARY CARE, ETELVINA L 244.9 HYPOTHYROIDISM 12/02/2012 SALGUERO DO, LADONNA K 244.9 HYPOTHYROIDISM 12/02/2012 SALGUERO DO, LADONNA K 244.9 HYPOTHYROIDISM 12/02/2012 MADL PHYSICIAN ASSISTANT PRIMARY CARE, ETELVINA L 244.9 HYPOTHYROIDISM 12/02/2012 MADL PHYSICIAN ASSISTANT PRIMARY CARE, ETELVINA L 244.9 HYPOTHYROIDISM 12/02/2012 MADL PHYSICIAN ASSISTANT PRIMARY CARE, ETELVINA L 244.9 HYPOTHYROIDISM 12/02/2012 MADL PHYSICIAN ASSISTANT PRIMARY CARE, ETELVINA L 244.9 HYPOTHYROIDISM 12/02/2012 MADL PHYSICIAN ASSISTANT PRIMARY CARE, ETELVINA L 244.9 HYPOTHYROIDISM 12/02/2012 MADL PHYSICIAN ASSISTANT PRIMARY CARE, ETELVINA L 244.9 HYPOTHYROIDISM 12/02/2012 MADL PHYSICIAN ASSISTANT PRIMARY CARE, ETELVINA L 244.9 HYPOTHYROIDISM 12/02/2012 SALGUERO DO, LADONNA K 244.9 HYPOTHYROIDISM 12/02/2012 SALGUERO DO, LADONNA K 244.9 HYPOTHYROIDISM 12/02/2012 MADL PHYSICIAN ASSISTANT PRIMARY CARE, ETELVINA L 244.9 HYPOTHYROIDISM 12/02/2012 SALGUERO DO, LADONNA K 244.9 HYPOTHYROIDISM 12/02/2012 MADL PHYSICIAN ASSISTANT PRIMARY CARE, ETELVINA L 244.9 HYPOTHYROIDISM 12/26/2012 Ot 305.1 [...] DO LADONNA K 780.52 insomnia 02/08/2013 MADL PHYSICIAN ASSISTANT PRIMARY CARE, ETELVINA L 780.52 insomnia 02/08/2013 MADL PHYSICIAN ASSISTANT PRIMARY CARE, ETELVINA L 780.52 insomnia 02/08/2013 MADL PHYSICIAN ASSISTANT PRIMARY CARE, ETELVINA L 780.52 insomnia 02/08/2013 SALGUERO DO LADONNA K 780.52 insomnia 02/08/2013 SALGUERO DO, LADONNA K 780.52 insomnia 02/08/2013 MADL PHYSICIAN ASSISTANT PRIMARY CARE, ETELVINA L 780.52 insomnia 02/08/2013 MADL PHYSICIAN ASSISTANT PRIMARY CARE, ETELVINA L 780.52 insomnia 02/08/2013 MADL PHYSICIAN ASSISTANT PRIMARY CARE, ETELVINA L 780.52 insomnia 02/08/2013 MADL PHYSICIAN ASSISTANT PRIMARY CARE, ETELVINA L 780.52 insomnia 02/08/2013 MADL PHYSICIAN ASSISTANT PRIMARY CARE, ETELVINA L 780.52 insomnia 02/08/2013 MADL PHYSICIAN ASSISTANT PRIMARY CARE, ETELVINA L 780.52 insomnia 02/08/2013 MADL PHYSICIAN ASSISTANT PRIMARY CARE, ETELVINA L 780.52 insomnia 02/08/2013 SALGUERO DO LADONNA K 780.52 insomnia 02/08/2013 SALGUERO DO LADONNA K 780.52 insomnia 02/08/2013 MADL PHYSICIAN ASSISTANT PRIMARY CARE, ETELVINA L 780.52 insomnia 02/08/2013 SALGUERO DO, LADONNA K 780.52 insomnia 02/08/2013 MADL PHYSICIAN ASSISTANT PRIMARY CARE, ETELVINA L 780.52 insomnia 04/17/2013 REHAN OLVERA, MARCO A Garcia Ot 305.1 TOBACCO USE DISORDER 04/17/2013 REHAN OLVERA, MARCO A Garcia Ot 490 BRONCHITIS NOS [...] LADONNA K 719.07 EDEMA FOOT 06/03/2013 MADL PHYSICIAN ASSISTANT PRIMARY CARE, ETELVINA L 110.1 ONYCHOMYCOSIS 06/03/2013 MADL PHYSICIAN ASSISTANT PRIMARY CARE, ETELVINA L 719.07 EDEMA FOOT 06/03/2013 MADL PHYSICIAN ASSISTANT PRIMARY CARE, ETELVINA L 110.1 ONYCHOMYCOSIS 06/03/2013 MADL PHYSICIAN ASSISTANT PRIMARY CARE, ETELVINA L 719.07 EDEMA FOOT 06/03/2013 MADL PHYSICIAN ASSISTANT PRIMARY CARE, ETELVINA L 110.1 ONYCHOMYCOSIS 06/03/2013 MADL PHYSICIAN ASSISTANT PRIMARY CARE, ETELVINA L 719.07 EDEMA FOOT 06/03/2013 SALGUERO DO, LADONNA K 110.1 ONYCHOMYCOSIS 06/03/2013 SALGUERO DO, LADONNA K 719.07 EDEMA FOOT 06/03/2013 SALGUERO DO, LADONNA K 110.1 ONYCHOMYCOSIS 06/03/2013 SALGUERO DO, LADONNA K 719.07 EDEMA FOOT 06/03/2013 MADL PHYSICIAN ASSISTANT PRIMARY CARE, ETELVINA L 110.1 ONYCHOMYCOSIS 06/03/2013 MADL PHYSICIAN ASSISTANT PRIMARY CARE, ETELVINA L 719.07 EDEMA FOOT 06/03/2013 MADL PHYSICIAN ASSISTANT PRIMARY CARE, ETELVINA L 110.1 ONYCHOMYCOSIS 06/03/2013 MADL PHYSICIAN ASSISTANT PRIMARY CARE, ETELVINA L 719.07 EDEMA FOOT 06/03/2013 MADL PHYSICIAN ASSISTANT PRIMARY CARE, ETELVINA L 110.1 ONYCHOMYCOSIS 06/03/2013 MADL PHYSICIAN ASSISTANT PRIMARY CARE, ETELVINA L 719.07 EDEMA FOOT 06/03/2013 MADL PHYSICIAN ASSISTANT PRIMARY CARE, ETELVINA L 110.1 ONYCHOMYCOSIS 06/03/2013 MADL PHYSICIAN ASSISTANT PRIMARY CARE, ETELVINA L 719.07 EDEMA FOOT 06/03/2013 MADL PHYSICIAN ASSISTANT PRIMARY CARE, ETELVINA L 110.1 ONYCHOMYCOSIS 06/03/2013 MADL PHYSICIAN ASSISTANT PRIMARY CARE, ETELVINA L 719.07 EDEMA FOOT 06/03/2013 MADL PHYSICIAN ASSISTANT PRIMARY CARE, ETELVINA L 110.1 ONYCHOMYCOSIS 06/03/2013 MADL PHYSICIAN ASSISTANT PRIMARY CARE, ETELVINA L 719.07 EDEMA FOOT 06/03/2013 MADL PHYSICIAN ASSISTANT PRIMARY CARE, ETELVINA L 110.1 ONYCHOMYCOSIS 06/03/2013 MADL PHYSICIAN ASSISTANT PRIMARY CARE, ETELVINA L 719.07 EDEMA FOOT 06/03/2013 SALGUERO DO, LADONNA K 110.1 ONYCHOMYCOSIS 06/03/2013 SALGUERO DO, LADONNA K 719.07 EDEMA FOOT 06/03/2013 SALGUERO DO, LADONNA K 110.1 ONYCHOMYCOSIS 06/03/2013 SALGUERO DO, LADONNA K 719.07 EDEMA FOOT 06/03/2013 MADL PHYSICIAN ASSISTANT PRIMARY CARE, ETELVINA L 110.1 ONYCHOMYCOSIS 06/03/2013 MADL PHYSICIAN ASSISTANT PRIMARY CARE, ETELVINA L 719.07 EDEMA FOOT 06/03/2013 SALGUERO DO, LADONNA K 110.1 ONYCHOMYCOSIS 06/03/2013 SALGUERO DO, LADONNA K 719.07 EDEMA FOOT 06/03/2013 MADL PHYSICIAN ASSISTANT PRIMARY CARE, ETELVINA L 110.1 ONYCHOMYCOSIS 06/03/2013 MADL PHYSICIAN ASSISTANT PRIMARY CARE, ETELVINA L 719.07 EDEMA FOOT 08/03/2013 EDUARDO [...] LADONNA K 595.0 ACUTE CYSTITIS 08/25/2013 MADL PHYSICIAN ASSISTANT PRIMARY CARE, ETELVINA L 311 depression 08/25/2013 MADL PHYSICIAN ASSISTANT PRIMARY CARE, ETELVINA L 595.0 ACUTE CYSTITIS 08/25/2013 MADL PHYSICIAN ASSISTANT PRIMARY CARE, ETELVINA L 311 depression 08/25/2013 MADL PHYSICIAN ASSISTANT PRIMARY CARE, ETELVINA L 595.0 ACUTE CYSTITIS 08/25/2013 MADL PHYSICIAN ASSISTANT PRIMARY CARE, ETELVINA L 311 depression 08/25/2013 MADL PHYSICIAN ASSISTANT PRIMARY CARE, ETELVINA L 595.0 ACUTE CYSTITIS 08/25/2013 SALGUERO DO, LADONNA K 311 depression 08/25/2013 SALGUERO DO, LADONNA K 595.0 ACUTE CYSTITIS 08/25/2013 SALGUERO DO, LADONNA K 311 depression 08/25/2013 SALGUERO DO, LADONNA K 595.0 ACUTE CYSTITIS 08/25/2013 MADL PHYSICIAN ASSISTANT PRIMARY CARE, ETELVINA L 311 depression 08/25/2013 MADL PHYSICIAN ASSISTANT PRIMARY CARE, ETELVINA L 595.0 ACUTE CYSTITIS 08/25/2013 MADL PHYSICIAN ASSISTANT PRIMARY CARE, ETELVINA L 311 depression 08/25/2013 MADL PHYSICIAN ASSISTANT PRIMARY CARE, ETELVINA L 595.0 ACUTE CYSTITIS 08/25/2013 MADL PHYSICIAN ASSISTANT PRIMARY CARE, ETELVINA L 311 depression 08/25/2013 MADL PHYSICIAN ASSISTANT PRIMARY CARE, ETELVINA L 595.0 ACUTE CYSTITIS 08/25/2013 MADL PHYSICIAN ASSISTANT PRIMARY CARE, ETELVINA L 311 depression 08/25/2013 MADL PHYSICIAN ASSISTANT PRIMARY CARE, ETELVINA L 595.0 ACUTE CYSTITIS 08/25/2013 MADL PHYSICIAN ASSISTANT PRIMARY CARE, ETELVINA L 311 depression 08/25/2013 MADL PHYSICIAN ASSISTANT PRIMARY CARE, ETELVINA L 595.0 ACUTE CYSTITIS 08/25/2013 MADL PHYSICIAN ASSISTANT PRIMARY CARE, ETELVINA L 311 depression 08/25/2013 MADL PHYSICIAN ASSISTANT PRIMARY CARE, ETELVINA L 595.0 ACUTE CYSTITIS 08/25/2013 MADL PHYSICIAN ASSISTANT PRIMARY CARE, ETELVINA L 311 depression 08/25/2013 MADL PHYSICIAN ASSISTANT PRIMARY CARE, ETELVINA L 595.0 ACUTE CYSTITIS 08/25/2013 SALGUERO DO, LADONNA K 311 depression 08/25/2013 SALGUERO DO, LADONNA K 595.0 ACUTE CYSTITIS 08/25/2013 SALGUERO DO, LADONNA K 311 depression 08/25/2013 SALGUERO DO, LADONNA K 595.0 ACUTE CYSTITIS 08/25/2013 MADL PHYSICIAN ASSISTANT PRIMARY CARE, ETELVINA L 311 depression 08/25/2013 MADL PHYSICIAN ASSISTANT PRIMARY CARE, ETELVINA L 595.0 ACUTE CYSTITIS 08/25/2013 SALGUERO DO, LADONNA K 311 depression 08/25/2013 SALGUERO DO, LADONNA K 595.0 ACUTE CYSTITIS 08/25/2013 MADL PHYSICIAN ASSISTANT PRIMARY CARE, ETELVINA L 311 depression 08/25/2013 MADL PHYSICIAN ASSISTANT PRIMARY CARE, ETELVINA L 595.0 ACUTE CYSTITIS 09/02/2013 SALGUERO [...] LADONNA K 709.8 FISSURES SKIN 09/02/2013 MADL PHYSICIAN ASSISTANT PRIMARY CARE, ETELVINA L 709.8 FISSURES SKIN 09/02/2013 MADL PHYSICIAN ASSISTANT PRIMARY CARE, ETELVINA L 709.8 FISSURES SKIN 09/02/2013 MADL PHYSICIAN ASSISTANT PRIMARY CARE, ETELVINA L 709.8 FISSURES SKIN 09/02/2013 SALGUERO DO, LADONNA K 709.8 FISSURES SKIN 09/02/2013 SALGUERO DO, LADONNA K 709.8 FISSURES SKIN 09/02/2013 MADL PHYSICIAN ASSISTANT PRIMARY CARE, ETELVINA L 709.8 FISSURES SKIN 09/02/2013 MADL PHYSICIAN ASSISTANT PRIMARY CARE, ETELVINA L 709.8 FISSURES SKIN 09/02/2013 MADL PHYSICIAN ASSISTANT PRIMARY CARE, ETELVINA L 709.8 FISSURES SKIN 09/02/2013 MADL PHYSICIAN ASSISTANT PRIMARY CARE, ETELVINA L 709.8 FISSURES SKIN 09/02/2013 MADL PHYSICIAN ASSISTANT PRIMARY CARE, ETELVINA L 709.8 FISSURES SKIN 09/02/2013 MADL PHYSICIAN ASSISTANT PRIMARY CARE, ETELVINA L 709.8 FISSURES SKIN 09/02/2013 MADL PHYSICIAN ASSISTANT PRIMARY CARE, ETELVINA L 709.8 FISSURES SKIN 09/02/2013 SALGUERO DO, LADONNA K 709.8 FISSURES SKIN 09/02/2013 SALGUERO DO, LADONNA K 709.8 FISSURES SKIN 09/02/2013 MADL PHYSICIAN ASSISTANT PRIMARY CARE, ETELVINA L 709.8 FISSURES SKIN 09/02/2013 SALGUERO DO, LADONNA K 709.8 FISSURES SKIN 09/02/2013 MADL PHYSICIAN ASSISTANT PRIMARY CARE, ETELVINA L 709.8 FISSURES SKIN 09/22/2013 BYRON [...] 788.1 pain during urination (dysuria) 09/22/2013 MADL PHYSICIAN ASSISTANT PRIMARY CARE, ETELVINA L 788.1 pain during urination (dysuria) 09/22/2013 MADL PHYSICIAN ASSISTANT PRIMARY CARE, ETELVINA L 788.1 pain during urination (dysuria) 09/22/2013 MADL PHYSICIAN ASSISTANT PRIMARY CARE, ETELVINA L 788.1 pain during urination (dysuria) 09/22/2013 SALGUERO DO, LADONNA K 788.1 PAIN DURING URINATION (DYSURIA) 09/22/2013 SALGUERO DO, LADONNA K 788.1 PAIN DURING URINATION (DYSURIA) 09/22/2013 MADL PHYSICIAN ASSISTANT PRIMARY CARE, ETELVINA L 788.1 PAIN DURING URINATION (DYSURIA) 09/22/2013 MADL PHYSICIAN ASSISTANT PRIMARY CARE, ETELVINA L 788.1 PAIN DURING URINATION (DYSURIA) 09/22/2013 MADL PHYSICIAN ASSISTANT PRIMARY CARE, ETELVINA L 788.1 PAIN DURING URINATION (DYSURIA) 09/22/2013 MADL PHYSICIAN ASSISTANT PRIMARY CARE, ETELVINA L 788.1 PAIN DURING URINATION (DYSURIA) 09/22/2013 MADL PHYSICIAN ASSISTANT PRIMARY CARE, ETELVINA L 788.1 PAIN DURING URINATION (DYSURIA) 09/22/2013 MADL PHYSICIAN ASSISTANT PRIMARY CARE, ETELVINA L 788.1 PAIN DURING URINATION (DYSURIA) 09/22/2013 MADL PHYSICIAN ASSISTANT PRIMARY CARE, ETELVINA L 788.1 PAIN DURING URINATION (DYSURIA) 09/22/2013 SALGUERO DO LADONNA K 788.1 PAIN DURING URINATION (DYSURIA) 09/22/2013 SALGUERO DO, LADONNA K 788.1 PAIN DURING URINATION (DYSURIA) 09/22/2013 MADL PHYSICIAN ASSISTANT PRIMARY CARE, ETELVINA L 788.1 PAIN DURING URINATION (DYSURIA) 09/22/2013 SALGUERO DO, LADONNA K 788.1 PAIN DURING URINATION (DYSURIA) 09/22/2013 MADMaxine PHYSICIAN ASSISTANT PRIMARY CARE, ETELVINA L 788.1 PAIN DURING URINATION (DYSURIA) 10/22/2013 EDUARDO VILLEGAS MD Ot 596.51 HYPERTONICITY OF BLADDER 10/22/2013 EDUARDO VILLEGAS MD Ot 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 10/22/2013 EDUARDO VILLEGAS MD Ot 788.30 UNSPECIFIED URINARY INCONTINENCE 10/22/2013 EDUARDO VILLEGAS MD Ot V58.69 [facility],CURRENT USE 10/25/2013 HARDEEP DORANTES Ot 892.0 OPEN WOUND OF FOOT 10/25/2013 HARDEEP DORANTES Ot 959.7 LOWER LEG INJURY NOS 10/25/2013 HARDEEP DORANTES Ot E000.8 OTHER EXTERNAL CAUSE STATUS 10/25/2013 HARDEEP DORANTES Ot E849.0 ACCIDENT IN HOME 10/25/2013 HARDEEP DORANTES Ot E916 STRUCK BY FALLING OBJECT 10/25/2013 HARDEEP DORANTES Ot V06.1 [id number], COMBINED [ 11/04/2013 MARLA EVERETT MD, Ot V58.2 BLOOD TRANSFUSION, NO DX 11/04/2013 MARLA EVERETT MD, Ot V58.32 ENCOUNTER FOR REMOVAL OF SUTURES 12/12/2013 PATRICIA MCDONALD MD Ot 996.78 OTH COMP DUE TO OTH INTRNL ORTHPEDIC DEV 02/11/2014 NOEMY PRAKASH LADONNA K Ot 244.9 HYPOTHYROIDISM NOS 02/11/2014 NOEMY PRAKASH LADONNA K Ot 250.00 DIAB MELVA WO COMPL, TYPE II OR UNSPEC TY 02/11/2014 NOEYM PRAKASH LADONNA K Ot 272.4 HYPERLIPIDEMIA NEC/NOS [...] LADONNA K Ot 414.01 CORONARY ATHEROSCLEROSIS OF [place] CORON 02/11/2014 NOEMY PRAKASH LADONNA K Ot [...] MASS INDEX 39.0-39.9, ADULT 02/13/2014 THOMPSON QURESHI PHYSICIAN ASSISTANT PRIMARY CARE Ot 724.5 BACKACHE NOS 02/27/2014 TERE SALGUERO DOA K 381.01 ACUTE SEROUS OTITIS MEDIA 02/27/2014 NOEMY PRAKASH LADONNA K 381.01 ACUTE SEROUS OTITIS MEDIA 02/27/2014 NOEMY PRAKASH LADONNA K 381.01 ACUTE SEROUS OTITIS MEDIA 02/27/2014 SALGUERO DO LADONNA K 381.01 ACUTE SEROUS OTITIS MEDIA 02/27/2014 ETELVINA LEONARD APRN 381.01 ACUTE SEROUS OTITIS MEDIA 02/27/2014 MADL PHYSICIAN ASSISTANT PRIMARY CARE, ETELVINA L 381.01 ACUTE SEROUS OTITIS MEDIA 02/27/2014 MADL PHYSICIAN ASSISTANT PRIMARY CARE, ETELVINA L 381.01 ACUTE SEROUS OTITIS MEDIA 02/27/2014 SALGUERO DO, LADONNA K 381.01 ACUTE SEROUS OTITIS MEDIA 02/27/2014 SALGUERO DO, LADONNA K 381.01 ACUTE SEROUS OTITIS MEDIA 02/27/2014 MADL PHYSICIAN ASSISTANT PRIMARY CARE, ETELVINA L 381.01 ACUTE SEROUS OTITIS MEDIA 02/27/2014 MADL PHYSICIAN ASSISTANT PRIMARY CARE, ETELVINA L 381.01 ACUTE SEROUS OTITIS MEDIA 02/27/2014 MADL PHYSICIAN ASSISTANT PRIMARY CARE, ETELVINA L 381.01 ACUTE SEROUS OTITIS MEDIA 02/27/2014 MADL PHYSICIAN ASSISTANT PRIMARY CARE, ETELVINA L 381.01 ACUTE SEROUS OTITIS MEDIA 02/27/2014 MADL PHYSICIAN ASSISTANT PRIMARY CARE, ETLEVINA L 381.01 ACUTE SEROUS OTITIS MEDIA 02/27/2014 MADL PHYSICIAN ASSISTANT PRIMARY CARE, ETELVINA L 381.01 ACUTE SEROUS OTITIS MEDIA 02/27/2014 MADL PHYSICIAN ASSISTANT PRIMARY CARE, ETELVINA L 381.01 ACUTE SEROUS OTITIS MEDIA 02/27/2014 SALGUERO DO, LADONNA K 381.01 ACUTE SEROUS OTITIS MEDIA 02/27/2014 SALGUERO DO, LADONNA K 381.01 ACUTE SEROUS OTITIS MEDIA 02/27/2014 MADL PHYSICIAN ASSISTANT PRIMARY CARE, ETELVINA L 381.01 ACUTE SEROUS OTITIS MEDIA 02/27/2014 SALGUERO DO, LADONNA K 381.01 ACUTE SEROUS OTITIS MEDIA 02/27/2014 MADL PHYSICIAN ASSISTANT PRIMARY CARE, ETELVINA L 381.01 ACUTE SEROUS OTITIS MEDIA 05/22/2014 MADL PHYSICIAN ASSISTANT PRIMARY CARE, ETELVINA L V16.0 FAMILY HISTORY OF MALIGNANT NEOPLASM OF GASTROINTESTINAL TRACT 05/22/2014 MADL PHYSICIAN ASSISTANT PRIMARY CARE, ETELVINA L V16.0 FAMILY HISTORY OF MALIGNANT NEOPLASM OF GASTROINTESTINAL TRACT 05/22/2014 SALGUERO DO, LADONNA K V16.0 FAMILY HISTORY OF MALIGNANT NEOPLASM OF GASTROINTESTINAL TRACT 05/22/2014 SALGUERO DO, LADONNA K V16.0 FAMILY HISTORY OF MALIGNANT NEOPLASM OF GASTROINTESTINAL TRACT 05/22/2014 MADL PHYSICIAN ASSISTANT PRIMARY CARE, ETELVINA L V16.0 FAMILY HISTORY OF MALIGNANT NEOPLASM OF GASTROINTESTINAL TRACT 05/22/2014 MADL PHYSICIAN ASSISTANT PRIMARY CARE, ETELVINA L V16.0 FAMILY HISTORY OF MALIGNANT NEOPLASM OF GASTROINTESTINAL TRACT 05/22/2014 MADL PHYSICIAN ASSISTANT PRIMARY CARE, ETELVINA L V16.0 FAMILY HISTORY OF MALIGNANT NEOPLASM OF GASTROINTESTINAL TRACT 05/22/2014 MADL PHYSICIAN ASSISTANT PRIMARY CARE, ETELVINA L V16.0 FAMILY HISTORY OF MALIGNANT NEOPLASM OF GASTROINTESTINAL TRACT 05/22/2014 MADL PHYSICIAN ASSISTANT PRIMARY CARE, ETELVINA L V16.0 FAMILY HISTORY OF MALIGNANT NEOPLASM OF GASTROINTESTINAL TRACT 05/22/2014 MADL PHYSICIAN ASSISTANT PRIMARY CARE, ETELVINA L V16.0 FAMILY HISTORY OF MALIGNANT NEOPLASM OF GASTROINTESTINAL TRACT 05/22/2014 MADL PHYSICIAN ASSISTANT PRIMARY CARE, ETELVINA L V16.0 FAMILY HISTORY OF MALIGNANT NEOPLASM OF GASTROINTESTINAL TRACT 05/22/2014 SALGUERO DO LADONNA K V16.0 FAMILY HISTORY OF MALIGNANT NEOPLASM OF GASTROINTESTINAL TRACT 05/22/2014 SALGUERO DO LADONNA K V16.0 FAMILY HISTORY OF MALIGNANT NEOPLASM OF GASTROINTESTINAL TRACT 05/22/2014 MADL PHYSICIAN ASSISTANT PRIMARY CARE, ETELVINA L V16.0 FAMILY HISTORY OF MALIGNANT NEOPLASM OF GASTROINTESTINAL TRACT 05/22/2014 SALGUERO DO LADONNA K V16.0 FAMILY HISTORY OF MALIGNANT NEOPLASM OF GASTROINTESTINAL TRACT 05/22/2014 AISHA PHYSICIAN ASSISTANT PRIMARY CARE, ETELVINA L V16.0 FAMILY HISTORY OF MALIGNANT [...] FACP CCDS Ot 414.01 CORONARY ATHEROSCLEROSIS OF [place] CORON 05/23/2014 BRADLY KIRBY MD, FACC FACP [...] GAMINO MD Ot 414.01 CORONARY ATHEROSCLEROSIS OF [place] CORON 06/05/2014 SHANA OLVERA, JEFERSON Bruner Ot [...] MD Ot 553.3 DIAPHRAGMATIC HERNIA 08/28/2014 MADL PHYSICIAN ASSISTANT PRIMARY CARE, ETELVINA L 381.01 ACUTE SEROUS OTITIS MEDIA 08/28/2014 MADL PHYSICIAN ASSISTANT PRIMARY CARE, ETELVINA L 799.02 HYPOXIA 08/28/2014 MADL PHYSICIAN ASSISTANT PRIMARY CARE, ETELVINA L V04.81 FLU SHOT 08/28/2014 MADL PHYSICIAN ASSISTANT PRIMARY CARE, ETELVINA L 381.01 ACUTE SEROUS OTITIS MEDIA 08/28/2014 MADL PHYSICIAN ASSISTANT PRIMARY CARE, ETELVINA L 799.02 HYPOXIA 08/28/2014 MADL PHYSICIAN ASSISTANT PRIMARY CARE, ETELVINA L V04.81 FLU SHOT 08/28/2014 MADL PHYSICIAN ASSISTANT PRIMARY CARE, ETELVINA L 381.01 ACUTE SEROUS OTITIS MEDIA 08/28/2014 MADL PHYSICIAN ASSISTANT PRIMARY CARE, ETELVINA L 799.02 HYPOXIA 08/28/2014 MADL PHYSICIAN ASSISTANT PRIMARY CARE, ETELVINA L V04.81 FLU SHOT 08/28/2014 MADL PHYSICIAN ASSISTANT PRIMARY CARE, ETELVINA L 381.01 ACUTE SEROUS OTITIS MEDIA 08/28/2014 MADL PHYSICIAN ASSISTANT PRIMARY CARE, ETELVINA L 799.02 HYPOXIA 08/28/2014 MADL PHYSICIAN ASSISTANT PRIMARY CARE, ETELVINA L V04.81 FLU SHOT 08/28/2014 MADL PHYSICIAN ASSISTANT PRIMARY CARE, ETELVINA L 381.01 ACUTE SEROUS OTITIS MEDIA 08/28/2014 MADL PHYSICIAN ASSISTANT PRIMARY CARE, ETELVINA L 799.02 HYPOXIA 08/28/2014 MADL PHYSICIAN ASSISTANT PRIMARY CARE, ETELVINA L V04.81 FLU SHOT 08/28/2014 MAD[facility] PHYSICIAN ASSISTANT PRIMARY CARE, ETELVINA L 381.01 ACUTE SEROUS OTITIS MEDIA 08/28/2014 M[facility] PHYSICIAN ASSISTANT PRIMARY CARE, ETELVINA L 799.02 HYPOXIA 08/28/2014 MAD[facility] PHYSICIAN ASSISTANT PRIMARY CARE, ETELVINA L V04.81 FLU SHOT 08/28/2014 MAD[facility] PHYSICIAN ASSISTANT PRIMARY CARE, ETELVINA L 381.01 ACUTE SEROUS OTITIS MEDIA 08/28/2014 MAD[facility] PHYSICIAN ASSISTANT PRIMARY CARE, ETELVINA L 799.02 HYPOXIA 08/28/2014 MAD[facility] PHYSICIAN ASSISTANT PRIMARY CARE, ETELVINA L V04.81 FLU SHOT 08/28/2014 SALGUERO DO, LADONNA K 381.01 ACUTE SEROUS OTITIS MEDIA 08/28/2014 SALGUERO DO, LADONNA K 799.02 HYPOXIA 08/28/2014 SALGUERO DO, LADONNA K V04.81 FLU SHOT 08/28/2014 SALGUERO DO, LADONNA K 381.01 ACUTE SEROUS OTITIS MEDIA 08/28/2014 SALGUERO DO, LADONNA K 799.02 HYPOXIA 08/28/2014 SALGUERO DO, LADONNA K V04.81 FLU SHOT 08/28/2014 M[facility] PHYSICIAN ASSISTANT PRIMARY CARE, ETELVINA L 381.01 ACUTE SEROUS OTITIS MEDIA 08/28/2014 MAD[facility] PHYSICIAN ASSISTANT PRIMARY CARE, ETELVINA L 799.02 HYPOXIA 08/28/2014 MAD[facility] PHYSICIAN ASSISTANT PRIMARY CARE, ETELVINA L V04.81 FLU SHOT 08/28/2014 SALGUERO DO, LADONNA K 381.01 ACUTE SEROUS OTITIS MEDIA 08/28/2014 SALGUERO DO, LADONNA K 799.02 HYPOXIA 08/28/2014 SALGUERO DO, LADONNA K V04.81 FLU SHOT 08/28/2014 M[facility] PHYSICIAN ASSISTANT PRIMARY CARE, ETELVINA L 381.01 ACUTE SEROUS OTITIS MEDIA 08/28/2014 MAD[facility] PHYSICIAN ASSISTANT PRIMARY CARE, ETELVINA L 799.02 HYPOXIA 08/28/2014 MADL ETELVINA HARRIS L V04.81 FLU SHOT 08/31/2014 THOMPSON QURESHI PHYSICIAN ASSISTANT PRIMARY CARE Ot 250.00 DIAB MELVA WO COMPL, TYPE II OR UNSPEC TY 08/31/2014 THOMPSON QURESHI PHYSICIAN ASSISTANT PRIMARY CARE Ot 305.1 TOBACCO USE DISORDER 08/31/2014 THOMPSON QURESHI PHYSICIAN ASSISTANT PRIMARY CARE Ot 382.9 OTITIS MEDIA NOS 08/31/2014 THOMPSON QURESHI APRN Ot 784.2 SWELLING IN HEAD NECK 08/31/2014 HTOMPSON QURESHI PHYSICIAN ASSISTANT PRIMARY CARE Ot 910.4 INSECT BITE HEAD 08/31/2014 THOMPSON QURESHI APRN Ot E849.0 ACCIDENT IN HOME 08/31/2014 THOMPSON QURESHI APRN Ot E906.4 NONVENOM ARTHROPOD BITE 08/31/2014 THOMPSON QURESHI APRN Ot V58.67 LONG-TERM (CURRENT) USE OF INSULIN 09/01/2014 THOMPSON QURESHI APRN Ot 373.00 BLEPHARITIS NOS 09/01/2014 THOMPSON QURESHI PHYSICIAN ASSISTANT PRIMARY CARE Ot 379.92 SWELLING OR MASS OF EYE [...] L V03.82 PPV23 (PNEUMOVAX) DX 10/23/2014 [facility] PHYSICIAN ASSISTANT PRIMARY CARE, ETELVINA L 112.3 CANDIDIASIS OF SKIN AND [...] Ot 486 PNEUMONIA, ORGANISM NOS 10/30/2014 HARDEEP DOARNTES Ot 496 CHR AIRWAY OBSTRUCT NEC 10/30/2014 [...] JOINT INVOLVING ANKLE AND FOOT 12/11/2014 HUGOL PHYSICIAN ASSISTANT PRIMARY CARESARA BowserETELVINA L 719.46 PAIN IN JOINT INVOLVING LOWER LEG 12/11/2014 MADL PHYSICIAN ASSISTANT PRIMARY CAREANDREZ BowserNYA L 719.47 PAIN IN JOINT INVOLVING ANKLE AND FOOT 12/11/2014 SALGUERO DO LADONNA K 719.46 PAIN IN JOINT INVOLVING LOWER LEG 12/11/2014 NOEMY PRAKASH LADONNA K 719.47 PAIN IN JOINT INVOLVING ANKLE AND FOOT 12/11/2014 MADL SARA HARRISWNYA L 719.46 PAIN IN JOINT INVOLVING LOWER LEG 12/11/2014 MADL PHYSICIAN ASSISTANT PRIMARY CAREANDREZ BowserNYA L 719.47 PAIN IN JOINT INVOLVING [...] HARRIS, ETELVINA L 757.39 POROKEROTOSIS 02/09/2015 MAD[facility] PHYSICIAN ASSISTANT PRIMARY CARE, ETELVINA L 788.1 DYSURIA 02/09/2015 MAD[facility] PHYSICIAN ASSISTANT PRIMARY CARE, ETELVINA L 789.02 ABDOMINAL PAIN LEFT UPPER QUADRANT 02/09/2015 NOEMY PRAKASH LADONNA K 735.4 HAMMER TOE (ACQUIRED) 02/09/2015 NOEMY DO LADONNA K 757.39 POROKEROTOSIS 02/09/2015 SALGUERO DO LADONNA K 788.1 DYSURIA 02/09/2015 NOEMY PRAKASH LADONNA K 789.02 ABDOMINAL PAIN LEFT UPPER QUADRANT 02/09/2015 [facility] PHYSICIAN ASSISTANT PRIMARY CARE, ETELVINA L 735.4 HAMMER TOE (ACQUIRED) 02/09/2015 AISHA HARRIS, ETELVINA L 757.39 POROKEROTOSIS 02/09/2015 HUGOL KIMBERLY, ETELVINA L 788.1 DYSURIA 02/09/2015 AISHA HARRIS, ETELVINA L 789.02 ABDOMINAL PAIN LEFT UPPER QUADRANT 02/19/2015 MADL KIMBERLY, ETELVINA L 780.2 SYNCOPE AND COLLAPSE 02/19/2015 SALGUERO DO, LADONNA K 780.2 SYNCOPE AND COLLAPSE 02/19/2015 MAD[facility] PHYSICIAN ASSISTANT PRIMARY CARE, ETELVINA L 780.2 SYNCOPE AND COLLAPSE 02/20/2015 QUE LEON MD Ot 250.00 DIAB MELVA WO COMPL, TYPE II OR UNSPEC TY 02/20/2015 QUE LEON MD Ot 305.1 TOBACCO USE DISORDER 02/20/2015 QUE LEON MD Ot 401.9 HYPERTENSION NOS 02/20/2015 QUE LEON MD Ot 414.01 CORONARY ATHEROSCLEROSIS OF [place] CORON 02/20/2015 QUE LEON MD Ot 458.0 ORTHOSTATIC HYPOTENSION 02/20/2015 QUE LEON MD Ot 584.9 ACUTE RENAL FAILURE, UNSPECIFIED 02/20/2015 QUE LEON MD Ot V15.88 HISTORY OF FALL 02/27/2015 ETELVINA LEONARD APRN L 593.9 UNSPECIFIED DISORDER OF KIDNEY AND URETER 03/01/2015 HAMMAD LEONARDA L ER RN Ot 414.00 03/01/2015 HAMMAD LEONARDA L ER RN Ot 780.2 03/01/2015 MADHAMMAD GoodmanA L ER RN Ot V45.82 03/26/2015 Ot 786.09 03/26/2015 Ot [...] Garcia Ot V74.8 03/26/2015 BAIKYLAH ABAD L ER RN Ot 396.3 03/26/2015 BAIMA KYLAH L ER RN Ot 397.0 03/26/2015 BAIJENNIFFER KYLAH L ER RN Ot 401.9 03/26/2015 BAIJENNIFFER KYLAH L ER RN Ot 414.00 03/26/2015 BAIMA KYLAH L ER RN Ot 250.00 03/26/2015 BAIMA, KYLAH L ER RN Ot 272.4 03/26/2015 BAIMA, KYLAH L ER RN Ot 305.1 03/26/2015 BAIMA, KYLAH L ER RN Ot 401.9 03/26/2015 BAIMA, KYLAH L ER RN Ot 414.00 03/26/2015 BAIMA, KYLAH L ER RN Ot 424.90 03/26/2015 BAIMA, KYLAH L ER RN Ot 496 03/26/2015 TAMARA OLVERA, PATRICIA L Ot 996.78 03/26/2015 TAMARA OLVERA, PATRICIA L Ot V72.63 03/26/2015 TAMARA OLVERA, PATRICIA L Ot V72.81 03/26/2015 TAMARA OLVERA, PATRICIA L Ot V74.8 03/26/2015 KARYN OLVERA, BYRON M Ot 272.4 03/26/2015 KARYN OLVERA, BYRON M Ot 338.29 03/26/2015 KARYN OLVERA, BYRON M Ot 401.9 03/26/2015 BAIMA, KYLAH L ER RN Ot 414.00 03/26/2015 BAIMA, KYLAH L ER RN Ot 429.3 03/26/2015 SHANA OLVERA, JEFERSON M Ot V72.84 03/26/2015 BAIMA, KYLAH L ER RN Ot 272.4 03/26/2015 SHANA OLVERA, JEFERSON M Ot V72.84 03/26/2015 KOFI OLVERA FAC, ALI FACP CCDS Ot 272.4 03/26/2015 KOFI OLVERA FACC, ALI FACP CCDS Ot 414.00 03/26/2015 KOFI OLVERA FACC, ALI FACP CCDS Ot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 Outpatient LAURIE MORA APRN [id number] 11/01/2012 08:50:00 11/01/2012 23:59:59 CLS Outpatient [id number] 10/11/2012 08:39:00 10/11/2012 23:59:59 CLS Outpatient LAURIE MORA APRN [id number] 09/07/2012 09:19:00 09/07/2012 23:59:59 CLS Outpatient LAURIE MORA APRN [id number] 08/10/2013 14:39:00 Document Registration [id number] 06/03/2013 08:05:00 Document Registration [id number] 06/03/2013 08:05:00 Document Registration [id number] 02/08/2013 10:18:00 Document Registration [id number] 01/07/2018 16:24:00 01/07/2018 19:40:00 DIS Emergency SATHISH JONES HARDEEP Goodman [facility] ER FALL WITH BIG BUMP ON L LEG [id number] 12/29/2017 12:20:00 12/29/2017 23:59:59 CLS Outpatient KOFI OLVERA FACC, ALI FACP CCDS [facility] RAD I25.10 CAD [id number] 12/21/2017 13:54:00 12/21/2017 23:59:59 CLS Outpatient KYLAH CREWS ER RN Via [facility] CARD I25.5 CARDIOMYOPATHY [id number] 12/02/2017 08:24:00 12/02/2017 23:59:59 CLS Outpatient KOFI OLVERA FACTj, ALI FACP CCDS [facility] RT R06.02 SOB [id number] 12/01/2017 08:04:00 12/01/2017 23:59:59 CLS Outpatient KOFI OLVERA FACC, ALI FACP CCDS [facility] CARD R06.02 SOB [id number] 11/26/2017 11:24:00 11/26/2017 23:59:59 CLS Outpatient KOFI OLVERA FACC, ALI FACP CCDS [facility] CARD R06.02 SOB [id number] 11/09/2017 12:27:00 11/09/2017 23:59:59 CLS Outpatient BILL CLEMENTE DO [facility] RAD ABNORMAL MAMMO [id number] 10/27/2017 12:24:00 10/27/2017 23:59:59 CLS Outpatient BILL CLEMENTE DO [facility] RAD SCREENING [id number] 12/31/2016 10:19:00 12/31/2016 23:59:59 CLS Outpatient ADELFO WASHINGTON ER RN [facility] RAD AAA [id number] 04/07/2016 08:25:00 04/07/2016 11:40:00 DIS Outpatient JEFERSON GAMINO MD [facility] SDC DYSKINESIA [id number] 04/02/2016 05:42:00 04/02/2016 11:05:00 DIS Outpatient JEFERSON GAIMNO MD [facility] PREOP DYSKINSIA [id number] 03/11/2016 11:17:00 03/11/2016 23:59:59 CLS Outpatient KOFI OLVERA FACC, BRADLY NIX CCDS [facility] LAB CAD, HYPERLIPIDEMIA [id number] 03/09/2016 16:47:00 03/09/2016 19:30:00 DIS Emergency MARLA EVERETT MD [facility] ER FEVER/DIARRHEA [id number] 03/05/2016 19:11:00 03/05/2016 21:37:00 DIS Emergency INES REYNOSO MD [facility] ER EYE SWELLING/ANKLE PAIN FROM FALL [id number] 12/18/2015 08:53:00 12/18/2015 23:59:59 CLS Outpatient KYLAH CREWS [facility] RAD ABDOMEN AORTIC ECTASIA [id number] 12/09/2015 10:18:00 12/09/2015 12:47:00 DIS Emergency BETTINA ROMAN MD [facility] ER R EYE SWELLING/PAIN [id number] 12/01/2015 13:15:00 12/01/2015 15:12:00 DIS Emergency MARLA EVERETT MD [facility] ER R EYE SWELLING [id number] 10/07/2015 16:35:00 10/07/2015 18:15:00 DIS Emergency BETTINA ROMAN MD [facility] ER POST OP/BLEEDING [id number] 10/04/2015 10:45:00 10/04/2015 23:59:59 CLS Outpatient BILL CLEMENTE DO [facility] LAB RESISTANT GUINFECTIONS [id number] 09/13/2015 10:52:00 09/13/2015 23:59:59 CLS Outpatient KYLAH CREWS [facility] LAB HLP,CAD [id number] 07/30/2015 15:05:00 07/30/2015 16:25:00 DIS Emergency HARDEEP DORANTES [facility] ER BACK,HIP PAIN [id number] 07/16/2015 17:17:00 07/16/2015 18:20:00 DIS Emergency THOMPSON QURESHI [facility] ER L ARM, L KNEE INJ [id number] 07/09/2015 13:52:00 07/09/2015 23:59:59 CLS Outpatient BILL CLEMENTE DO [facility] RAD TRAUMA L 3RD TOE W/ DIABETES [id number] 06/11/2015 09:00:00 06/11/2015 23:59:59 CLS Outpatient KOFI OLVEAR FACC, BRADLY NIX CCDS [facility] RAD ABDOMINAL AORTIAL ECTASIA [id number] 04/10/2015 10:25:00 04/10/2015 23:59:59 CLS Outpatient BILL CLEMENTE DO [facility] RAD R ANKLE PAIN, HX OF FX SURGERY [id number] 03/26/2015 11:17:00 03/26/2015 23:59:59 CLS Outpatient BILL CLEMENTE DO [facility] RAD BACK PAIN, [id number] 03/16/2015 10:23:00 03/16/2015 23:59:59 CLS Outpatient BILL CLEMENTE DO [facility] LAB DM II,CAD,HLP [id number] 03/16/2015 10:20:00 03/16/2015 23:59:59 CLS Outpatient KYLAH CREWS ER RN [facility] LAB ELECTROLYTE DEPLETION ,CAD,HTN,HLP [id number] 03/01/2015 07:26:00 03/01/2015 23:59:59 CLS Outpatient ETELVINA LEONARD ER RN Via [facility] CARD NEAR SYNCOPE EPISODE CAD [id number] 02/19/2015 16:09:00 02/20/2015 13:40:00 DIS Inpatient CAROLYN OLVERA, QUE Bowser [facility] 4TH ORTHOSTATIC HYPOTENSION; ACUTE RENAL FAILURE [id number] 12/30/2014 11:12:00 12/30/2014 14:54:00 DIS Emergency ANGELES OLVERA, INES Peter [facility] ER SOA,DIZZINESS [id number] 11/03/2014 08:58:00 11/03/2014 10:36:00 DIS Emergency BO OLVERA, DANIELITO K [facility] ER COUGH/CONGESTION [id number] 10/30/2014 14:50:00 10/30/2014 16:25:00 DIS Emergency HARDEEP DORANTES [facility] ER NAUSEATED/BODYACHES/ WEAKNESS EARACHE/RINGING [id number] 10/01/2014 13:53:00 10/01/2014 14:57:00 DIS Emergency FELICIA ENCINAS DO [facility] ER RECTAL BLEEDING [id number] 09/11/2014 09:46:00 09/11/2014 23:59:59 CLS Outpatient KOFI OLVERA FACC, BRADLY NIX CCDS [facility] CARD ISCHEMIC CARDIO MYOPATHY,CAD [id number] 09/01/2014 10:58:00 09/01/2014 11:40:00 DIS Emergency THOMPSON Q[facility]HI [facility] ER SWOLLEN EYE [id number] 08/31/2014 16:55:00 08/31/2014 18:16:00 DIS Emergency THOMPSON QURESHI [facility] ER NECK SWELLING [id number] 07/10/2014 09:07:00 07/10/2014 11:55:00 DIS Outpatient JEFERSON GAMINO MD Via [facility] DYSPHAGIA [id number] 07/05/2014 07:29:00 07/05/2014 23:59:59 CLS Outpatient JEFERSON GAMINO MD [facility] PREOP DYSPHAGIA [id number] 06/05/2014 08:24:00 06/05/2014 11:43:00 DIS Outpatient JEFERSON GAMINO MD Via [facility] SCREENING;FAMILY HISTORY [id number] 05/31/2014 07:28:00 05/31/2014 23:59:59 CLS Outpatient JEFERSON GAMINO MD [facility] PREOP SCREENING;FAMILY HISTORY [id number] 05/29/2014 12:18:00 05/29/2014 23:59:59 CLS Outpatient KYLAH CREWS [facility] LAB POST HEART CATH [id number] 05/23/2014 06:24:00 05/23/2014 20:30:00 DIS Outpatient KOFI OLVERA FACC, BRADLY NIX CCDS [facility] CATH SHORTNESS OF BREATH CAD ABNORMAL STRESS TEST [id number] 05/08/2014 12:02:00 05/08/2014 23:59:59 CLS Outpatient KYLAH CREWS [facility] CARD CAD [id number] 02/13/2014 12:30:00 02/13/2014 14:00:00 DIS Emergency THOMPSON QURESHI APRN [facility] ER FALL/BACK PAIN [id number] 02/09/2014 19:30:00 02/11/2014 10:45:00 DIS Inpatient LADONNA SALGUERO DO [facility] ICU ACUTE COPD EXACERBATION [id number] 2014 11:48:00 2014 23:59:59 CLS Outpatient BYRON BOSS MD [facility] LAB HTN,HYPERLIPADEIA [id number] 12/12/2013 06:44:00 12/12/2013 11:43:00 DIS Outpatient PATRICIA MCDONALD MD [facility] SDC PAINFUL HARDWARE RIGHT ANKLE [id number] 12/05/2013 14:33:00 12/05/2013 23:59:59 CLS Outpatient PATRICIA MCDONALD MD [facility] PREOP PAINFUL HARDWARE RIGHT ANKLE [id number] 11/04/2013 12:22:00 11/04/2013 12:46:00 DIS Emergency MARLA EVERETT MD [facility] ER SUTURE REMOVAL [id number] 10/31/2013 10:42:00 10/31/2013 23:59:59 CLS Outpatient KYLAH CREWS [facility] CARD CAD,HTN [id number] 10/25/2013 08:26:00 10/25/2013 23:59:59 CLS Outpatient KYLAH CREWS [facility] LAB CAD,HEART VALVE DISEASE,HTN,HYPERLIPIDEMIA,COPD [id number] 10/25/2013 18:12:00 10/25/2013 20:10:00 DIS Emergency HARDEEP DORANTES [facility] ER FOOT INJ [id number] 10/21/2013 06:02:00 10/22/2013 11:11:00 DIS Outpatient EDUARDO VILLEGAS MD Via [facility] INTRINSIC SPHINCTER DEFICIENCY; INCONTINENCE [id number] 10/17/2013 09:25:00 10/17/2013 23:59:59 CLS Outpatient EDUARDO VILLEGAS MD [facility] PREOP INTRINSIC SPHINCTER DEFICIENCY; INCONTINENCE [id number] 08/03/2013 06:00:00 08/03/2013 09:56:00 DIS [facility] [id number] 07/27/2013 12:35:00 07/27/2013 23:59:59 CLS Outpatient EDUARDO VILLEGAS MD [facility] PREOP INCONTINENCE [id number] 06/13/2013 14:57:00 06/13/2013 23:59:59 CLS Outpatient [id number] 04/18/2013 22:12:00 04/18/2013 23:34:00 DIS Emergency FELICIA ENCINAS DO Via [facility] ER REACTION TO MEDICATION [id number] 04/17/2013 14:11:00 04/17/2013 15:42:00 DIS Emergency MARCO A VAN MD [facility] ER VOMITING BODY ACHES [id number] 03/26/2015 11:17:00 Document Registration [id number] 01/19/2013 18:23:00 Document Registration [id number] 01/01/2013 15:27:00 Document Registration [id number] 12/26/2012 14:21:00 Document Registration [id number] 11/11/2012 16:20:00 Document Registration [id number] 10/24/2012 23:40:00 Document Registration [id number] 09/19/2012 19:49:00 Document Registration [id number] 09/13/2012 10:47:00 Document Registration [id number] 09/08/2012 15:08:00 Document Registration [id number] 09/04/2012 17:10:00 Document Registration [id number] 06/12/2012 16:25:00 Document Registration [id number] 06/03/2012 10:41:00 Document Registration [id number] 04/16/2012 09:50:00 Document Registration [id number] 03/17/2012 10:58:00 Document Registration [id number] 03/08/2012 10:14:00 Document Registration [id number] 02/01/2012 18:50:00 Document Registration [id number] 01/28/2012 06:00:00 Document Registration [id number] 01/21/2012 09:31:00 Document Registration [id number] 11/11/2011 07:21:00 Document Registration [id number] 10/30/2011 08:09:00 Document Registration [id number] 10/27/2011 07:16:00 Document Registration [id number] 10/24/2011 12:36:00 Document Registration [id number] 10/19/2011 11:22:00 Document Registration [id number] 08/07/2011 10:17:00 Document Registration [id number] 07/14/2011 13:47:00 Document Registration [id number] 07/06/2011 18:30:00 Document Registration [id number] 03/19/2011 05:41:00 Document Registration [id number] 03/13/2011 12:47:00 Document Registration [id number] 02/12/2011 10:12:00 Document Registration [id number] 02/06/2011 08:14:00 Document Registration [id number] 01/22/2011 05:55:00 Document Registration [id number] 01/15/2011 10:27:00 Document Registration [id number] 11/08/2010 10:08:00 Document Registration [id number] 09/05/2010 05:48:00 Document Registration [id number] 09/04/2010 09:00:00 Document Registration [id number] 08/26/2010 07:15:00 Document Registration [id number] 08/07/2010 14:40:00 Document Registration [id number] 08/02/2010 08:36:00 Document Registration [id number] 05/26/2010 12:24:00 Document Registration [id number] 04/14/2010 17:58:00 Document Registration [id number] 03/08/2010 10:03:00 Document Registration [id number] 03/07/2010 09:13:00 Document Registration [id number] 02/21/2010 08:56:00 Document Registration [id number] 08/02/2009 18:35:00 Document Registration
[2018-02-15] MEDS ORDERED: ONDANSETRON 4 MG/2 ML (SDV) Z0FRAN IVP ONE (11:00)
[2018-02-15] MEDS ORDERED: NITROGLYCERIN 0.4 MG SL TABS BTL 25'S SL PRN (11:00)
[2018-02-15] MEDS ORDERED: ASPIRIN 81 MG CHEW (CHILDREN'S ASA) PO ONE (11:00)
[2018-02-15 11:02] LABS: BASOPHILS % (AUTO) 1 % (0-10); EOSINOPHILS # (AUTO) 0.3 10^3/uL (0.0-0.3); EOSINOPHILS % (AUTO) 4 % (0-10); HEMATOCRIT 35 % (35-52); HEMOGLOBIN 11.3 G/DL (11.5-16.0); LYMPHOCYTES # (AUTO) 2.3 X 10^3 (1.0-4.0); LYMPHOCYTES % (AUTO) 32 % (12-44); MEAN CORPUSCULAR HEMOGLOBIN 25 PG (25-34); MEAN CORPUSCULAR HGB CONC 32 G/DL (32-36); MEAN CORPUSCULAR VOLUME 77 FL (80-99); MEAN PLATELET VOLUME 10.8 FL (7.4-10.4); MONOCYTES # (AUTO) 0.8 X 10^3 (0.0-1.0); MONOCYTES % (AUTO) 12 % (0-12); NEUTROPHILS # (AUTO) 3.6 X 10^3 (1.8-7.8); NEUTROPHILS % (AUTO) 52 % (42-75); PLATELET COUNT 227 10^3/uL (130-400); RED BLOOD COUNT 4.54 10^6/uL (4.35-5.85); WHITE BLOOD COUNT 7.1 10^3/uL (4.3-11.0)
[2018-02-15 11:26] LABS: ALANINE AMINOTRANSFERASE 16 U/L (0-55); ALBUMIN 3.7 GM/DL (3.2-4.5); ALKALINE PHOSPHATASE 89 U/L (40-136); BILIRUBIN,TOTAL 0.3 MG/DL (0.1-1.0); BUN/CREATININE RATIO 25; CALCIUM 9.5 MG/DL (8.5-10.1); CARBON DIOXIDE 22 MMOL/L (21-32); CHLORIDE 107 MMOL/L (98-107); CREATININE SERUM 0.88 MG/DL (0.60-1.30); GFR ESTIMATED > 60; GLUCOSE 100 MG/DL (70-105); MAGNESIUM 1.8 MG/DL (1.8-2.4); POTASSIUM 4.7 MMOL/L (3.6-5.0); SODIUM 136 MMOL/L (135-145); TOTAL PROTEIN 7.2 GM/DL (6.4-8.2)
--- NOTE | 2018-02-15 11:36 | Consultation-Cardiology ---
HPI-Cardiology Cardiology Consultation Date of Consultation 02/15/18 Date of Admission Time Seen by Provider: 11:15 Indication: Chest pain HPI Patient is a 53 y/o female, patient of Dr. Martinez, with history of CAD with stent to the RCA in 2008, COPD, HTN. Presented to the ER with complaints of chest pain. Reports pain began last night after eating a taco salad for dinner and going to bed. States she began having CP again this morning, called Dr. Martinez's office and was instructed to go to the ER. Upon interviewing the patient, she continues to complain of epigastric and substernal chest pain, rating it 8-9/10, not relieved by nitroglycerin. Denies any dizziness, lightheadedness or syncope. Complaining of some peripheral edema over the past several weeks. 53 years old lady with history of coronary artery disease, hypertension, hyperlipidemia, had a stress test done in November 2017, started having chest pain, came into the emergency room. Pain did not relieve by nitroglycerin. Reporting as substernal discomfort and epigastric discomfort. No shortness of breath, no palpitation, syncope or near syncopal episodes Home Medications & Allergies Allergies: Coded Allergies: Penicillins (Verified Allergy, Mild, Hives, 03/05/16) Frksrhl-Sqk-Qyz Reductase Inhibitor (Verified Allergy, Unknown, 03/05/16) amlodipine besylate (Verified Allergy, Unknown, 03/05/16) benazepril HCl (Verified Allergy, Unknown, 03/05/16) aspirin (Verified Adverse Reaction, Mild, Nausea, 02/19/15) codeine (Verified Adverse Reaction, Mild, Nausea, 02/19/15) tramadol (Verified Adverse Reaction, Mild, N/V, 07/16/15) Home Medication List Reviewed: Yes ZKI-Evtzew-Onwppl Hx Patient Social History Alcohol Use: Denies Use Recreational Drug Use: No Smoking Status: Current Everyday Smoker Type Used: Cigarettes Recent Hopitalizations: No Immunizations Up To Date Tetanus Booster (TDap): Less than 5yrs Date of Pneumonia Vaccine: Jul 10, 2011 Date of Influenza Vaccine: Oct 30, 2015 Family Medical History Significant Family History: No Pertinent Family Hx Family History: Arthritis Diabetes mellitus Hypertension Constitutional: No diaphoresis, No fever, No malaise EENTM: No blurred vision, No double vision Respiratory: No cough, No dyspnea on exertion, orthopnea, wheezing Cardiovascular: chest pain, edema, Hx of Intervention, No palpitations, No syncope, vascular heart diseas Gastrointestinal: No abdominal pain, No constipation Genitourinary: No dysuria, No frequency Musculoskeletal: No back pain, No joint pain Skin: No lesions, No rash Psychiatric/Neurological: Denies Anxiety, Denies Depressed Reviewed Test Results Reviewed Test Results Lab Laboratory Tests 02/15/18 10:55: White Blood Count 7.1, Red Blood Count 4.54, Hemoglobin 11.3L, Hematocrit 35, Mean Corpuscular Volume 77L, Mean Corpuscular Hemoglobin 25, Mean Corpuscular Hemoglobin Concent 32, Red Cell Distribution Width 18.0H, Platelet Count 227, Mean Platelet Volume 10.8H, Neutrophils (%) (Auto) 52, Lymphocytes (%) (Auto) 32 , Monocytes (%) (Auto) 12, Eosinophils (%) (Auto) 4, Basophils (%) (Auto) 1, Neutrophils # (Auto) 3.6, Lymphocytes # (Auto) 2.3, Monocytes # (Auto) 0.8, Eosinophils # (Auto) 0.3, Basophils # (Auto) 0.0, Prothrombin Time 13.0, INR Comment 1.0, Activated Partial Thromboplast Time 27, Sodium Level 136, Potassium Level 4.7, Chloride Level 107, Carbon Dioxide Level 22, Anion Gap 7, Blood Urea Nitrogen 22H, Creatinine 0.88, Estimat Glomerular Filtration Rate > 60, BUN/Creatinine Ratio 25, Glucose Level 100, Calcium Level 9.5, Magnesium Level 1.8, Total Bilirubin 0.3, Aspartate Amino Transf (AST/SGOT) 18, Alanine Aminotransferase (ALT/SGPT) 16, Alkaline Phosphatase 89, Total Protein 7.2, Albumin 3.7 ECG Impression ECG Initial ECG Rhythm: Normal Sinus Physical Exam Vital Signs Vital Signs - First Documented 02/15/18 11:00 Temp 100.0 Pulse 88 Resp 20 B/P (MAP) 136/90 (105) Pulse Ox 95 O2 Delivery Room Air Capillary Refill : Less Than 3 Seconds General Appearance: No Apparent Distress, WD/WN HEENT: PERRL/EOMI, Normal ENT Inspection Neck: Non Tender, Supple Respiratory: Chest Non Tender, No Respiratory Distress, Wheezing (faint expiratory wheezing) Cardiovascular: Regular Rate, Rhythm, No Edema, No Gallop, No JVD, No Murmur, Normal Peripheral Pulses Gastrointestinal: Non Tender, Soft Rectal: Deferred Back: No CVA Tenderness Extremity: Non Tender, No Calf Tenderness Neurologic/Psychiatric: Alert, Oriented x3, director of materials II-XII Norm as Tested Skin: Normal Color, Warm/Dry Lymphatic: No Adenopathy A/P-Cardiology Admission Diagnosis Chest pain CAD HTN COPD Assessment/Plan Chest pain, nonspecific etiology- EKG reveals no acute ST changes. Not relieved by SL nitroglycerin. Cardiac enzymes pending. Patient underwent stress test November 2017 revealing no ischemia or infarct. Will continue to monitor cardiac enzymes. If initial and repeat trop normal, ok to discharge from cardiology standpoint and follow up with Dr. Martinez next week. Coronary artery disease with a history of drug-eluting stenting of the right coronary artery in December 2008. Subsequently, she has had cardiac catheterizations, including August 2010, October 2011 and April 2014. The cardiac catheterization showed only angiographically mild coronary artery disease and the stent in the proximal right coronary artery is patent. Cath of April 2014 showed 50% instent restenosis in the RCA and FFR was 0.93, indicating hemodynamic nonsignificance. There was mild to mod cardiomyopathy with posterobasal and diaphragmatic hypokinesis and LVEF approx 45% and mild to mod elev of LVEDP Echo of 11/26/17 showed LVEF 50-55%, mild AoR, no distinct evidence of valvular stenosis MUGA scan of 12/21/17: LVEF 48% HTN- history of labile HTN, continue to monitor BP/HR Chronic obstructive pulmonary disease; PFTs of 12/02/17 showed mod obstructive lung defect and mod decrease in diffusing capacity Gastroesophageal reflux- consider starting PPI Chronic mild dysphagia of undetermined etiology, followed by her pcp (Dr Palafox) Mild bilateral carotid arterial disease per carotid u/s of 02/29/16, continue to monitor. Maturity onset diabetes mellitus. H/o obesity but with considerable wgt loss during 2016 and 2017; currently BMI 26 Hyperlipidemia being treated with simvastatin. Anxiety/depression, currently controlled. Chronic intermittent left bundle branch block. Chronic R ankle swelling following fracture and surgery in 2011. History of illicit drug use- She tested positive for cocaine, opiates and TCA on a drug screen during hospitalization of October 2012 Chronic tobacco use (smokes cigarettes) Endovascular repair of AAA by Dr Fitzgerald at [facility] in early 2016, followed by Dr Fitzgerald Chronic biat leg discomfort but seg pressures of 12/29/17 did not indicate any significant PAD of the legs Thank you for allowing us to participate in the management of Ms. Fonseca. This is Sana Prajapati PA-C, as a scribe for Dr. Ling. This is Dr. Ling, I have seen and evaluated the patient with Sana, interviewed the patient perform physical examination, discussed the management plan with Sana, agree with the current scribe. On examination her lungs were clear to auscultation bilaterally, having chest pain atypical in presentation. Still having persistent pain in spite of nitroglycerin. Had a stress test done 2 months ago. Had multiple cardiac catheterization after her stent to the right coronary artery. I recommended monitoring her in the emergency room and we will rule out 2 hours repeat troponin then discharge her and arrange for follow-up as an outpatient. If he shouldn't had a positive troponin will consider admission. I reviewed the current scribe note and agree with the finding, made few minor modification and used Italic Font Clinical Quality Measures AMI/AHF: ASA po Prior to arrival: Yes (81 MG) SANA KULKARNI Feb 15, 2018 11:36 MICHELLE LING MD Feb 15, 2018 12:37
[2018-02-15 11:38] LABS: MYOGLOBIN SERUM 28.9 NG/ML (10.0-92.0)
--- NOTE | 2018-02-15 11:51 | Diagnostic Imaging Report ---
INDICATION: Chest pain. TIME OF EXAM: 11:07 AM Comparison is made with prior study 03/09/2016. FINDINGS: The heart size is normal. There are some emphysematous changes in both lungs, particularly mid and upper lung tai. No infiltrate is detected. No effusion or pneumothorax is seen. IMPRESSION: No acute cardiopulmonary process is detected. Dictated by: Dictated on workstation # [id number]
[2018-02-15] MEDS ORDERED: FAMOTIDINE 20MG/2ML IV (PEPCID) IVP ONE (12:15)
[2018-02-15] MEDS ORDERED: ANTACID SUSP 30 ML UDC (MYLANTA) PO ONE (12:15)
[2018-02-15] MEDS ORDERED: LIDOCAINE 2% VISCOUS 15 ML UDC PO ONE (12:15)
[2018-02-15] MEDS ORDERED: KETOROLAC 30 MG/ML VIAL IVP ONE (13:30)
[2018-02-15] MEDS ORDERED: PANT20TA2 PO (15:30)
--- NOTE | 2018-02-15 15:31 | ED Chest Pain ---
General Chief Complaint: Chest Pain Stated Complaint: CP Nursing Triage Note: PT PRESENTS TO ED WITH CP STARTING AT [id number] LAST NIGHTPT RATES IT A 10/10. PT REPORTS SHE TOOK ONE NITRO AT HOME AND ONE 81 MG ASA. Nursing Sepsis Screen: No Definite Risk Source: patient, old records Exam Limitations: no limitations History of Present Illness Date Seen by Provider: Feb 15, 2018 Time Seen by Provider: 10:45 Initial Comments This 53-year-old woman presents to the emergency room with chest pain that started last night. She took aspirin and nitroglycerin which helped some. She reports her. Was rated 10 last night. She reports it is now 9/10. She is still having the pain now. She took nitroglycerin and aspirin last night which she thinks may have helped a little bit. She did not sleep well. She reports recently having a heart monitor that was turned in on February 10. She does not have the results of that yet. She denies any associated symptoms such as shortness of breath, lightheadedness, nausea, etc. She does have a history of coronary artery disease and stenting. She had a normal stress test in November. Allergies and Home Medications Allergies Coded Allergies: Penicillins (Verified Allergy, Mild, Hives, 03/05/16) Vmkejvk-Plp-Mmk Reductase Inhibitor (Verified Allergy, Unknown, 03/05/16) amlodipine besylate (Verified Allergy, Unknown, 03/05/16) benazepril HCl (Verified Allergy, Unknown, 03/05/16) aspirin (Verified Adverse Reaction, Mild, Nausea, 02/19/15) codeine (Verified Adverse Reaction, Mild, Nausea, 02/19/15) tramadol (Verified Adverse Reaction, Mild, N/V, 07/16/15) Home Medications Albuterol 8.5 Gm Hfa.aer.ad, 2 PUFF IH Q4H PRN for SHORTNESS OF BREATH, ( Reported) NEEDED FOR SHORTNESS OF BREATH Albuterol Sulfate 2.5 Mg/3 Ml Solution, 2.5 MG IH Q6H, (Reported) Albuterol/Ipratropium 3 Ml Nebu, 3 ML INH TID PRN for SHORTNESS OF BREATH, ( Reported) Atorvastatin Calcium 40 Mg Tablet, 40 MG PO DAILY, (Reported) Budesonide/Formoterol Fumarate 10.2 Gm Hfa.aer.ad, 2 PUFF IH BID, (Reported) Fluoxetine HCl 20 Mg Capsule, 20 MG PO DAILY, (Reported) Fluticasone Propionate 1 Ea Aero, 2 PUFF IH BID, (Reported) Gabapentin 300 Mg Capsule, 600 EACH PO TID, (Reported) TAKES 2 (300MG) CAPSULES Hyoscyamine Sulfate 0.125 Mg Tab.rapdis, 1 TAB PO Q4H PRN for CRAMPS, (Reported) Ipratropium/Albuterol Sulfate 4 Gm Aer.w.adap, 2 PUFF IH QID PRN for SHORTNESS OF BREATH, (Reported) NEEDED FOR SHORTNESS OF BREATH Lisinopril 10 Mg Tablet, 10 MG PO DAILY, (Reported) Metformin Hcl 500 Mg Tablet, 500 MG PO BID, (Reported) Methocarbamol 500 Mg Tablet, 500 MG PO TID, (Reported) Metoprolol Tartrate 25 Mg Tablet, 12.5 MG PO BID, (Reported) TAKES 1/2 (25MG) TABLET Nitroglycerin 0.4 Mg Tab, 0 SL PRN, (Reported) 1 TAB EVERY 5 MINUTES X 3 DOSES NEEDED FOR CHEST PAIN Oxybutynin Chloride 15 Mg Tab.osm.24, 15 MG PO DAILY, (Reported) Pantoprazole Sodium 20 Mg Tablet.dr, 20 MG PO DAILY Prescribed by: MARLA MAZARIEGOS on 02/15/18 1530 Patient Home Medication List Home Medication List Reviewed: Yes Review of Systems Constitutional: no symptoms reported EENTM: No Symptoms Reported Respiratory: No Symptoms Reported Cardiovascular: See HPI Gastrointestinal: No Symptoms Reported Genitourinary: No Symptoms Reported Musculoskeletal: see HPI Skin: no symptoms reported Psychiatric/Neurological: No Symptoms Reported Endocrine: No Symptoms Reported Past Veoskdc-Phmzvz-Zyrutv Hx Patient Social History Alcohol Use: Denies Use Recreational Drug Use: No Smoking Status: Current Everyday Smoker Type Used: Cigarettes Recent Foreign Travel: No Contact w/Someone Who Travel: No Recent Infectious Disease Expo: No Recent Hopitalizations: No Physical Abuse: No Sexual Abuse: No Mistreated: No Fear: No Immunizations Up To Date Tetanus Booster (TDap): Less than 5yrs Date of Pneumonia Vaccine: Jul 10, 2011 Date of Influenza Vaccine: Oct 30, 2015 Seasonal Allergies Seasonal Allergies: Yes Surgeries History of Surgeries: Yes (BROKEN HAND AND ANKLE) Surgeries: Coronary Stent, Hysterectomy, Orthopedic Respiratory History of Respiratory Disorde: Yes (COPD, ASTHMA, O2 @ NOC) Respiratory Disorders: Asthma, Pneumonia, Chronic Bronchitis, COPD, Emphysema Cardiovascular History of Cardiac Disorders: Yes (STENTS) Cardiac Disorders: Coronary Artery Disease, High Cholesterol, Hypertension Neurological History of Neurological Disord: Yes Neurological Disorders: Headaches /Migraines 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 System Hx 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 Disorders: No Sexually Transmitted Disease: No HIV/AIDS: No 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 Disorders: Denies [employer] History: Hysterectomy Genitourinary History of Genitourinary Disor: Yes Genitourinary Disorders: UTI-Chronic Gastrointestinal History of Gastrointestinal Di: Yes Gastrointestinal Disorders: Gastroesophageal Reflux Musculoskeletal History of Musculoskeletal Dis: Yes Musculoskeletal Disorders: Arthritis, Back Injury, Chronic Back Pain, Fractures Endocrine History of Endocrine Disorders: Yes Endocrine Disorders: Diabetes, Non-Insulin dep HEENT Loss of Vision: Denies Hearing Impairment: Denies Cancer History of Cancer: No Psychosocial History of Psychiatric Problem: Yes Behavioral Health Disorders: Anxiety, Depression Suicide Risk Score: 0 Integumentary History of Skin or Integumenta: No Blood Transfusions History of Blood Disorders: No Adverse Reaction to a Blood Tr: No Family Medical History Significant Family History: No Pertinent Family Hx Family Medial History: Arthritis Diabetes mellitus Hypertension Physical Exam Vital Signs Vital Signs - First Documented 02/15/18 11:00 Temp 100.0 Pulse 88 Resp 20 B/P (MAP) 136/90 (105) Pulse Ox 95 O2 Delivery Room Air Capillary Refill : Less Than 3 Seconds General Appearance: No Apparent Distress, WD/WN HEENT: PERRL/EOMI, Normal ENT Inspection Neck: Normal Inspection Respiratory: Lungs Clear, Normal Breath Sounds, No Accessory Muscle Use, No Respiratory Distress, Other (upper anterior chest wall tender to palpation) Cardiovascular: Regular Rate, Rhythm, No Edema, No Murmur Neurologic/Psychiatric: Alert, Oriented x3, No Motor/Sensory Deficits, Normal 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, 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 Skin: Normal Color, Warm/Dry Progress/Results/Core Measures Results/Orders Lab Results Laboratory Tests Test 02/15/18 10:55 02/15/18 13:54 Range/Units White Blood Count 7.1 4.3-11.0 10^3/uL Red Blood Count 4.54 4.35-5.85 10^6/uL Hemoglobin 11.3 L 11.5-16.0 G/DL Hematocrit 35 35-52 % Mean Corpuscular Volume 77 L 80-99 FL Mean Corpuscular Hemoglobin 25 25-34 PG Mean Corpuscular Hemoglobin Concent 32 32-36 G/DL Red Cell Distribution Width 18.0 H 10.0-14.5 % Platelet Count 227 130-400 10^3/uL Mean Platelet Volume 10.8 H 7.4-10.4 FL Neutrophils (%) (Auto) 52 42-75 % Lymphocytes (%) (Auto) 32 12-44 % Monocytes (%) (Auto) 12 0-12 % Eosinophils (%) (Auto) 4 0-10 % Basophils (%) (Auto) 1 0-10 % Neutrophils # (Auto) 3.6 1.8-7.8 X 10^3 Lymphocytes # (Auto) 2.3 1.0-4.0 X 10^3 Monocytes # (Auto) 0.8 0.0-1.0 X 10^3 Eosinophils # (Auto) 0.3 0.0-0.3 10^3/uL Basophils # (Auto) 0.0 0.0-0.1 10^3/uL Prothrombin Time 13.0 12.2-14.7 SEC INR Comment 1.0 0.8-1.4 Activated Partial Thromboplast Time 27 24-35 SEC Sodium Level 136 135-145 MMOL/L Potassium Level 4.7 3.6-5.0 MMOL/L Chloride Level 107 98-107 MMOL/L Carbon Dioxide Level 22 21-32 MMOL/L Anion Gap 7 5-14 MMOL/L Blood Urea Nitrogen 22 H 7-18 MG/DL Creatinine 0.88 0.60-1.30 MG/DL Estimat Glomerular Filtration Rate > 60 BUN/Creatinine Ratio 25 Glucose Level 100 70-105 MG/DL Calcium Level 9.5 8.5-10.1 MG/DL Magnesium Level 1.8 1.8-2.4 MG/DL Total Bilirubin 0.3 0.1-1.0 MG/DL Aspartate Amino Transf (AST/SGOT) 18 5-34 U/L Alanine Aminotransferase (ALT/SGPT) 16 0-55 U/L Alkaline Phosphatase 89 40-136 U/L Myoglobin 28.9 10.0-92.0 NG/ML Troponin I < 0.30 < 0.30 <0.30 NG/ML Total Protein 7.2 6.4-8.2 GM/DL Albumin 3.7 3.2-4.5 GM/DL My Orders Orders - MARLA EVERETT MD Cbc With Automated Diff (02/15/18 10:52) Magnesium (02/15/18 10:52) Chest 1 View, Ap/Pa Only (02/15/18 10:52) Ekg Tracing (02/15/18 10:52) Cardiac Profile 1 (02/15/18 10:52) Comprehensive Metabolic Panel (02/15/18 10:52) Myoglobin Serum (02/15/18 10:52) Protime With Inr (02/15/18 10:52) Partial Thromboplastin Time (02/15/18 10:52) O2 (02/15/18 10:52) Monitor-Rhythm Ecg Trace Only (02/15/18 10:52) Aspirin Chewable Tablet (Baby Aspirin Ch (02/15/18 11:00) Nitroglycerin 0.4 Mg Btl 25's (Nitrostat (02/15/18 11:00) Saline Lock/Iv-Start (02/15/18 10:52) Ondansetron Injection (Zofran Injectio (02/15/18 11:00) Famotidine Injection (Pepcid Injection) (02/15/18 12:15) Lidocaine 2% Viscous 15 Ml (Xylocaine Vi (02/15/18 12:15) Antacid Suspension (Mylanta Suspension (02/15/18 12:15) Troponin I (02/15/18 12:46) Ketorolac Injection (Toradol Injection) (02/15/18 13:30) Medications Given in ED Current Medications Medications Dose Ordered Sig/Betty Route Start Time Stop Time Status Last Admin Dose Admin Al Hydrox/Mg Hydrox/Simethicone 30 ml ONCE ONCE PO 02/15/18 12:15 02/15/18 12:16 DC 02/15/18 12:08 30 ML Aspirin 324 mg ONCE ONCE PO 02/15/18 11:00 02/15/18 11:01 DC 02/15/18 11:01 324 MG Famotidine 20 mg ONCE ONCE IVP 02/15/18 12:15 02/15/18 12:16 DC 02/15/18 12:08 20 MG Ketorolac Tromethamine 15 mg ONCE ONCE IVP 02/15/18 13:30 02/15/18 13:31 DC 02/15/18 13:53 15 MG Lidocaine HCl 15 ml ONCE ONCE PO 02/15/18 12:15 02/15/18 12:16 DC 02/15/18 12:08 15 ML Nitroglycerin 0.4 mg UD PRN SL 02/15/18 11:00 02/15/18 15:46 DC 02/15/18 11:00 0.4 MG Ondansetron HCl 4 mg ONCE ONCE IVP 02/15/18 11:00 02/15/18 11:01 DC 02/15/18 11:02 4 MG Vital Signs/I&O Vital Sign - Last 12Hours 02/15/18 02/15/18 11:00 11:03 Temp 100.0 Pulse 88 Resp 20 B/P (MAP) 136/90 (105) Pulse Ox 95 O2 Delivery Room Air Room Air Blood Pressure Mean: 105 Progress Note : Progress Note Cardiac workup was unremarkable. Patient was seen and evaluated by the cardiology team in the ER. Dr. Ling's assessment was that patient is stable to return home if a 3 hour troponin was normal. Patient's three-hour troponin was negative and she was pain-free at that time after receiving GI cocktail, Pepcid, and Toradol. She was dismissed home in stable condition for outpatient follow-up. See cardiology consultation note for more details. ECG Initial ECG Impression Date: Feb 15, 2018 Initial ECG Impression Time: 10:28 Initial ECG Rate: 88 Initial ECG Rhythm: Normal Sinus Initial ECG Intervals: Normal Initial ECG Impression: Normal Comment Normal sinus rhythm with no ST elevation or depression. No abnormal intervals or axis deviation. Diagnostic Imaging Diagonstic Imaging: Xray Plain Films/CT/US/NM/MRI: chest Comments Chest x-ray viewed by me and report reviewed. See report below: NAME: MAULIK ELIZALDE [facility] REC#: [id number] PT STATUS: REG ER : 1965 PHYSICIAN: MARLA EVERETT MD ADMIT DATE: 02/15/18/ER Signed Date of Exam: 02/15/18 CHEST 1 VIEW, AP/PA ONLY INDICATION: Chest pain. TIME OF EXAM: 11:07 AM Comparison is made with prior study 03/09/2016. FINDINGS: The heart size is normal. There are some emphysematous changes in both lungs, particularly mid and upper lung tai. No infiltrate is detected. No effusion or pneumothorax is seen. IMPRESSION: No acute cardiopulmonary process is detected. Dictated by: Dictated on workstation # [id number] Dict: 02/15/18 1141 Trans: 02/15/18 1343 Interpreted by: JEROME DEL VALLE MD Electronically signed by: JEROME DEL VALLE MD 02/15/18 1343 Departure Impression Impression: Primary Impression: Atypical chest pain Disposition: HOME, SELF-CARE Condition: Improved Departure-Patient Inst. Decision time for Depature: 15:15 Referrals: [facility] [place]) Primary Care Physician Patient Instructions: Chest Pain (DC) Add. Discharge Instructions: Continue your medications as previously prescribed. 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 Return to the emergency room if symptoms worsen. Take Protonix (pantoprazole) as prescribed to help prevent heartburn. All discharge instructions reviewed with patient and/or family. Voiced understanding. Scripts Pantoprazole Sodium (Protonix) 20 Mg Tablet. 20 MG PO DAILY, #30 TAB Prov: MARLA EVERETT MD 02/15/18 Copy Copies To 1: BRADLY KIRBY MD [facility] MARLA EVERETT MD Feb 15, 2018 15:31
[2018-02-15 15:46] VITALS: BP 129/84
== END 2018-02-15 15:46 | disposition home or self-care (01) ==
LOC: EDUNIT# 10:20 → ER 10:22
DX: R07.89 Other chest pain (principal); J43.9 Emphysema, unspecified; I10 Essential (primary) hypertension; I25.10 Atherosclerotic heart disease of native coronary artery without angina pectoris; E11.9 Type 2 diabetes mellitus without complications; F41.9 Anxiety disorder, unspecified; F31.9 Bipolar disorder, unspecified; E78.00 Pure hypercholesterolemia, unspecified; K21.9 Gastro-esophageal reflux disease without esophagitis; G43.909 Migraine, unspecified, not intractable, without status migrainosus; E78.5 Hyperlipidemia, unspecified; F17.210 Nicotine dependence, cigarettes, uncomplicated; Z90.710 Acquired absence of both cervix and uterus; Z87.01 Personal history of pneumonia (recurrent); Z79.82 Long term (current) use of aspirin; Z79.84 Long term (current) use of oral hypoglycemic drugs; Z95.5 Presence of coronary angioplasty implant and graft; Z87.81 Personal history of (healed) traumatic fracture; Z88.0 Allergy status to penicillin; Z88.6 Allergy status to analgesic agent; Z88.5 Allergy status to narcotic agent
CPT/HCPCS: 36415; 71045; 80053; 83735; 83874; 84484; 85025; 85610; 85730; 93005; 93041; 96374; 96375

== ENCOUNTER 2018-02-21 16:35 | Emergency (ER) | payer MEDICAID ==
[~2018-02-21] VITALS: Ht 170.2 cm; Wt 43.1 kg
[~2018-02-21 16:35] MED LIST changes: +PANT20TA2 PO
[2018-02-21 17:05] LABS: BASOPHILS % (AUTO) 1 % (0-10); EOSINOPHILS # (AUTO) 0.3 10^3/uL (0.0-0.3); EOSINOPHILS % (AUTO) 4 % (0-10); HEMATOCRIT 33 % (35-52); HEMOGLOBIN 10.1 G/DL (11.5-16.0); LYMPHOCYTES # (AUTO) 2.9 X 10^3 (1.0-4.0); LYMPHOCYTES % (AUTO) 40 % (12-44); MEAN CORPUSCULAR HEMOGLOBIN 25 PG (25-34); MEAN CORPUSCULAR HGB CONC 31 G/DL (32-36); MEAN CORPUSCULAR VOLUME 80 FL (80-99); MEAN PLATELET VOLUME 11.8 FL (7.4-10.4); MONOCYTES # (AUTO) 0.5 X 10^3 (0.0-1.0); MONOCYTES % (AUTO) 7 % (0-12); NEUTROPHILS # (AUTO) 3.6 X 10^3 (1.8-7.8); NEUTROPHILS % (AUTO) 49 % (42-75); PLATELET COUNT 208 10^3/uL (130-400); RED BLOOD COUNT 4.08 10^6/uL (4.35-5.85); RED CELL DISTRIBUTION WIDTH 18.4 % (10.0-14.5); WHITE BLOOD COUNT 7.3 10^3/uL (4.3-11.0)
[2018-02-21 17:09] LABS: PROTHROMBIN TIME PATIENT 13.5 SEC (12.2-14.7)
[2018-02-21 17:52] LABS: ALANINE AMINOTRANSFERASE 13 U/L (0-55); ALBUMIN 3.2 GM/DL (3.2-4.5); ALKALINE PHOSPHATASE 78 U/L (40-136); BILIRUBIN,TOTAL 0.2 MG/DL (0.1-1.0); BUN/CREATININE RATIO 27; CALCIUM 8.1 MG/DL (8.5-10.1); CARBON DIOXIDE 23 MMOL/L (21-32); CHLORIDE 111 MMOL/L (98-107); CREATININE SERUM 0.74 MG/DL (0.60-1.30); GFR ESTIMATED > 60; GLUCOSE 99 MG/DL (70-105); MAGNESIUM 1.8 MG/DL (1.8-2.4); SODIUM 138 MMOL/L (135-145); TOTAL PROTEIN 5.9 GM/DL (6.4-8.2)
--- NOTE | 2018-02-21 18:14 | Diagnostic Imaging Report ---
PROCEDURE: CT head and CT cervical spine without contrast. TECHNIQUE: Multiple contiguous axial images were obtained through the brain and cervical spine without the use of intravenous contrast. Sagittal and coronal reformations through the cervical spine were then performed. INDICATION: Tingling in arm with headache. COMPARISON: Prior examination from 02/19/2015. FINDINGS: There is mild prominence of the ventricles and sulci. There is some chronic microvascular ischemic disease. There is no hydrocephalus. There is no midline shift. There is no intracranial mass, hemorrhage or extra-axial fluid collection. There is no CT evidence of an acute transcortical infarct. The calvarium is intact. Sinuses and mastoid air cells are clear. The alignment of the cervical spine is normal. The vertebral body heights are well maintained. There is no fracture or traumatic subluxation. The odontoid is intact and the lateral masses are well aligned. The lung apices are clear. The prevertebral soft tissues are within normal limits. IMPRESSION: 1. Atrophy and moderate chronic microvascular ischemic disease without evidence of an acute CVA. If there is high clinical concern for an acute CVA, further evaluation with MRI should be considered. 2. No acute fracture or traumatic subluxation of the cervical spine. Dictated by: Dictated on workstation # [id number]
--- NOTE | 2018-02-21 18:18 | Diagnostic Imaging Report ---
INDICATION: Arm tingling with headache. EXAMINATION: PA and lateral views of the chest were obtained. COMPARISON: Prior examination from 02/15/2018. FINDINGS: The heart size, mediastinal configuration, and pulmonary vascularity are within normal limits. There is no pleural effusion, pneumothorax, or pneumonia. The osseous structures are unremarkable. IMPRESSION: No acute cardiopulmonary abnormality. Dictated by: Dictated on workstation # [id number]
[2018-02-21 18:20] LABS: BILIRUBIN,URINE NEGATIVE (NEGATIVE); CLARITY,URINE VERY CLOUDY; COLOR,URINE YELLOW; GLUCOSE, URINE (UA) NEGATIVE (NEGATIVE); KETONES,URINE NEGATIVE (NEGATIVE); LEUKOCYTE ESTERASE ,URINE 1+ (NEGATIVE); NITRITE,URINE NEGATIVE (NEGATIVE); PH,URINE 6 (5-9); PROTEIN,URINE NEGATIVE (NEGATIVE); UROBILINOGEN,URINE NORMAL (NORMAL)
[2018-02-21 18:37] LABS: BACTERIA,URINE LARGE /HPF
[2018-02-21 18:42] LABS: AMPHETAMINE SCREEN, URINE NEGATIVE (NEGATIVE); BARBITURATE SCREEN URINE NEGATIVE (NEGATIVE); BENZODIAZEPINES SCREEN URINE POSITIVE (NEGATIVE); CANNABINOID SCREEN, URINE NEGATIVE (NEGATIVE); COCAINE SCREEN URINE NEGATIVE (NEGATIVE); METHADONE STAT NEGATIVE (NEGATIVE); METHAMPHETAMINE SCREEN URINE S NEGATIVE (NEGATIVE); OPIATE SCREEN URINE NEGATIVE (NEGATIVE); OXYCODONE STAT NEGATIVE (NEGATIVE); PROPOXYPHENE STAT NEGATIVE (NEGATIVE); TRICYCLIC ANTIDEPRESSANTS SCRE POSITIVE (NEGATIVE)
[2018-02-21] MEDS ORDERED: RX-NITROFURANTOIN 100 MG (MACROBID) CAP PPK#2 PO STA (18:49)
[2018-02-21] MEDS ORDERED: METH4TAB PO (18:52)
[2018-02-21] MEDS ORDERED: NITR-65 PO (18:52)
--- NOTE | 2018-02-21 18:52 | ED General ---
General Chief Complaint: Neurological Problems Stated Complaint: WEAKNESS Nursing Triage Note: TO ED PER EMS. PATIENT REPORTS THAT SHE HAS FELT TINGLING IN HER L ARM SINCE 5A WITH HEADACHE. Nursing Sepsis Screen: No Definite Risk Allergies and Home Medications Allergies Coded Allergies: Penicillins (Verified Allergy, Mild, Hives, 03/05/16) Ldqqkqj-Rib-Suk Reductase Inhibitor (Verified Allergy, Unknown, 03/05/16) amlodipine besylate (Verified Allergy, Unknown, 03/05/16) benazepril HCl (Verified Allergy, Unknown, 03/05/16) aspirin (Verified Adverse Reaction, Mild, Nausea, 02/19/15) codeine (Verified Adverse Reaction, Mild, Nausea, 02/19/15) tramadol (Verified Adverse Reaction, Mild, N/V, 07/16/15) Home Medications Albuterol 8.5 Gm Hfa.aer.ad, 2 PUFF IH Q4H PRN for SHORTNESS OF BREATH, ( Reported) NEEDED FOR SHORTNESS OF BREATH Albuterol Sulfate 2.5 Mg/3 Ml Solution, 2.5 MG IH Q6H, (Reported) Albuterol/Ipratropium 3 Ml Nebu, 3 ML INH TID PRN for SHORTNESS OF BREATH, ( Reported) Atorvastatin Calcium 40 Mg Tablet, 40 MG PO DAILY, (Reported) Budesonide/Formoterol Fumarate 10.2 Gm Hfa.aer.ad, 2 PUFF IH BID, (Reported) Fluoxetine HCl 20 Mg Capsule, 20 MG PO DAILY, (Reported) Fluticasone Propionate 1 Ea Aero, 2 PUFF IH BID, (Reported) Gabapentin 300 Mg Capsule, 600 EACH PO TID, (Reported) TAKES 2 (300MG) CAPSULES Hyoscyamine Sulfate 0.125 Mg Tab.rapdis, 1 TAB PO Q4H PRN for CRAMPS, (Reported) Ipratropium/Albuterol Sulfate 4 Gm Aer.w.adap, 2 PUFF IH QID PRN for SHORTNESS OF BREATH, (Reported) NEEDED FOR SHORTNESS OF BREATH Lisinopril 10 Mg Tablet, 10 MG PO DAILY, (Reported) Metformin Hcl 500 Mg Tablet, 500 MG PO BID, (Reported) Methocarbamol 500 Mg Tablet, 500 MG PO TID, (Reported) Metoprolol Tartrate 25 Mg Tablet, 12.5 MG PO BID, (Reported) TAKES 1/2 (25MG) TABLET Nitroglycerin 0.4 Mg Tab, 0 SL PRN, (Reported) 1 TAB EVERY 5 MINUTES X 3 DOSES NEEDED FOR CHEST PAIN Oxybutynin Chloride 15 Mg Tab.osm.24, 15 MG PO DAILY, (Reported) Pantoprazole Sodium 20 Mg Tablet.dr, 20 MG PO DAILY Prescribed by: MARLA MAZARIEGOS on 02/15/18 1530 Past Uinsjht-Ygatro-Duxbwg Hx Patient Social History Alcohol Use: Denies Use Recreational Drug Use: No Smoking Status: Current Everyday Smoker Type Used: Cigarettes Recent Foreign Travel: No Contact w/Someone Who Travel: No Recent Infectious Disease Expo: No Recent Hopitalizations: No Immunizations Up To Date Tetanus Booster (TDap): Less than 5yrs Date of Pneumonia Vaccine: Jul 10, 2011 Date of Influenza Vaccine: Oct 30, 2015 Seasonal Allergies Seasonal Allergies: Yes Surgeries History of Surgeries: Yes (BROKEN HAND AND ANKLE) Surgeries: Coronary Stent, Hysterectomy, Orthopedic Respiratory History of Respiratory Disorde: Yes (COPD, ASTHMA, O2 @ NOC) Respiratory Disorders: Asthma, Pneumonia, Chronic Bronchitis, COPD, Emphysema Cardiovascular History of Cardiac Disorders: Yes (STENTS) Cardiac Disorders: Coronary Artery Disease, High Cholesterol, Hypertension Neurological History of Neurological Disord: Yes Neurological Disorders: Headaches /Migraines 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 System Hx 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 Disorders: No Sexually Transmitted Disease: No HIV/AIDS: No 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 Genitourinary History of Genitourinary Disor: Yes Genitourinary Disorders: UTI-Chronic Gastrointestinal History of Gastrointestinal Di: Yes Gastrointestinal Disorders: Gastroesophageal Reflux Musculoskeletal History of Musculoskeletal Dis: Yes Musculoskeletal Disorders: Arthritis, Back Injury, Chronic Back Pain, Fractures Endocrine History of Endocrine Disorders: Yes Endocrine Disorders: Diabetes, Non-Insulin dep HEENT Loss of Vision: Denies Hearing Impairment: Denies Cancer History of Cancer: No Psychosocial History of Psychiatric Problem: Yes Behavioral Health Disorders: Anxiety, Depression Integumentary History of Skin or Integumenta: No Blood Transfusions History of Blood Disorders: No Adverse Reaction to a Blood Tr: No Family Medical History Significant Family History: No Pertinent Family Hx Family Medial History: Arthritis Diabetes mellitus Hypertension Physical Exam Vital Signs Vital Signs - First Documented 02/21/18 16:35 Temp 98.0 Pulse 84 Resp 18 B/P (MAP) 132/80 (97) Pulse Ox 98 O2 Delivery Nasal Cannula Capillary Refill : Less Than 3 Seconds Progress/Results/Core Measures Suspected Sepsis Recent Fever Within 48 Hours: No Infection Criteria Present: None New/Unexplained Altered Menta: No Sepsis Screen: No Definite Risk Sepsis Diagnosis: SIRS Temperature:98.0 Pulse: 84 Respiratory Rate: 18 Laboratory Tests 02/21/18 16:44: White Blood Count 7.3 Blood Pressure 132 /80 Mean: 97 Laboratory Tests 02/21/18 16:44: INR Comment 1.0, Platelet Count 208 02/21/18 17:24: Creatinine 0.74, Total Bilirubin 0.2 Results/Orders Lab Results Laboratory Tests Test 02/21/18 16:44 02/21/18 17:24 02/21/18 18:11 Range/Units White Blood Count 7.3 4.3-11.0 10^3/uL Red Blood Count 4.08 L 4.35-5.85 10^6/uL Hemoglobin 10.1 L 11.5-16.0 G/DL Hematocrit 33 L 35-52 % Mean Corpuscular Volume 80 80-99 FL Mean Corpuscular Hemoglobin 25 25-34 PG Mean Corpuscular Hemoglobin Concent 31 L 32-36 G/DL Red Cell Distribution Width 18.4 H 10.0-14.5 % Platelet Count 208 130-400 10^3/uL Mean Platelet Volume 11.8 H 7.4-10.4 FL Neutrophils (%) (Auto) 49 42-75 % Lymphocytes (%) (Auto) 40 12-44 % Monocytes (%) (Auto) 7 0-12 % Eosinophils (%) (Auto) 4 0-10 % Basophils (%) (Auto) 1 0-10 % Neutrophils # (Auto) 3.6 1.8-7.8 X 10^3 Lymphocytes # (Auto) 2.9 1.0-4.0 X 10^3 Monocytes # (Auto) 0.5 0.0-1.0 X 10^3 Eosinophils # (Auto) 0.3 0.0-0.3 10^3/uL Basophils # (Auto) 0.0 0.0-0.1 10^3/uL Prothrombin Time 13.5 12.2-14.7 SEC INR Comment 1.0 0.8-1.4 Activated Partial Thromboplast Time 25 24-35 SEC Sodium Level 138 135-145 MMOL/L Potassium Level 4.0 3.6-5.0 MMOL/L Chloride Level 111 H 98-107 MMOL/L Carbon Dioxide Level 23 21-32 MMOL/L Anion Gap 4 L 5-14 MMOL/L Blood Urea Nitrogen 20 H 7-18 MG/DL Creatinine 0.74 0.60-1.30 MG/DL Estimat Glomerular Filtration Rate > 60 BUN/Creatinine Ratio 27 Glucose Level 99 70-105 MG/DL Calcium Level 8.1 L 8.5-10.1 MG/DL Magnesium Level 1.8 1.8-2.4 MG/DL Total Bilirubin 0.2 0.1-1.0 MG/DL Aspartate Amino Transf (AST/SGOT) 17 5-34 U/L Alanine Aminotransferase (ALT/SGPT) 13 0-55 U/L Alkaline Phosphatase 78 40-136 U/L Troponin I < 0.30 <0.30 NG/ML Total Protein 5.9 L 6.4-8.2 GM/DL Albumin 3.2 3.2-4.5 GM/DL Serum Alcohol < 10 <10 MG/DL Urine Color YELLOW Urine Clarity VERY CLOUDY H Urine pH 6 5-9 Urine Specific [place] 1.020 1.016-1.022 Urine Protein NEGATIVE NEGATIVE Urine Glucose (UA) NEGATIVE NEGATIVE Urine Ketones NEGATIVE NEGATIVE Urine Nitrite NEGATIVE NEGATIVE Urine Bilirubin NEGATIVE NEGATIVE Urine Urobilinogen NORMAL NORMAL MG/DL Urine Leukocyte Esterase 1+ H NEGATIVE Urine RBC (Auto) NEGATIVE NEGATIVE Urine RBC NONE /HPF Urine WBC 5-10 H /HPF Urine Squamous Epithelial Cells NONE /HPF Urine Crystals NONE /LPF Urine Bacteria LARGE H /HPF Urine Casts NONE /LPF Urine Mucus NEGATIVE /LPF Urine Culture Indicated YES Urine Opiates Screen NEGATIVE NEGATIVE Urine Oxycodone Screen NEGATIVE NEGATIVE Urine Methadone Screen NEGATIVE NEGATIVE Urine Propoxyphene Screen NEGATIVE NEGATIVE Urine Barbiturates Screen NEGATIVE NEGATIVE Ur Tricyclic Antidepressants Screen POSITIVE H NEGATIVE Urine Phencyclidine Screen NEGATIVE NEGATIVE Urine Amphetamines Screen NEGATIVE NEGATIVE Urine Methamphetamines Screen NEGATIVE NEGATIVE Urine Benzodiazepines Screen POSITIVE H NEGATIVE Urine Cocaine Screen NEGATIVE NEGATIVE Urine Cannabinoids Screen NEGATIVE NEGATIVE My Orders Orders - FELICIA ENCINAS DO Saline Lock/Iv-Start (02/21/18 16:57) Ekg Tracing (02/21/18 16:57) Monitor-Rhythm Ecg Trace Only (02/21/18 16:57) Alcohol (02/21/18 16:57) Cbc With Automated Diff (02/21/18 16:57) Comprehensive Metabolic Panel (02/21/18 16:57) Drug Screen Stat (Urine) (02/21/18 16:57) Magnesium (02/21/18 16:57) Protime With Inr (02/21/18 16:57) Partial Thromboplastin Time (02/21/18 16:57) Troponin I (02/21/18 16:57) Ua Culture If Indicated (02/21/18 16:57) Ct Head/Cervical Spine Wo (02/21/18 17:11) Chest Pa/Lat (2 View) (02/21/18 17:11) Urine Culture (02/21/18 18:11) Methylprednisolone Sod Succ (Solu-Medrol (02/21/18 19:00) Rx-Nitrofurantoin [place] (Rx-Macrobid) (02/21/18 18:49) Vital Signs/I&O Vital Sign - Last 12Hours 02/21/18 16:35 Temp 98.0 Pulse 84 Resp 18 B/P (MAP) 132/80 (97) Pulse Ox 98 O2 Delivery Nasal Cannula Capillary Refill : Less Than 3 Seconds Blood Pressure Mean: 97 Departure Impression Impression: Primary Impression: Urinary tract infection Additional Impression: SUBJECTIVE PARESTHESIAS Disposition: 01 HOME, SELF-CARE Condition: Stable Departure-Patient Inst. Referrals: [facility] (PCP/Family) Primary Care Physician Patient Instructions: Paresthesias (DC), Urinary Tract Infection, Adult (DC) Add. Discharge Instructions: CONTINUE YOUR REGULAR MEDICATIONS PRESCRIBED FOLLOW UP WITH YOUR DR THIS WEEK SCHEDULED All discharge instructions reviewed with patient and/or family. Voiced understanding. Scripts Nitrofurantoin Monohyd/M-Cryst (Macrobid 100 mg Capsule) 100 Mg Capsule 100 MG PO BID, #20 CAP Prov: HUANGFELICIA K DO 02/21/18 Methylprednisolone (Medrol) 4 Mg Tab.ds.pk 4 MG PO UD, #1 PKG Prov: HUANG,FELICIA K DO 02/21/18 HUANGFELICIA K DO Feb 21, 2018 18:52
[2018-02-21] MEDS ORDERED: methylPREDNISolone 125 MG (Solu-MEDROL) VIAL IVP ONE (19:00)
[2018-02-21 19:07] VITALS: BP 117/54
== END 2018-02-21 19:07 | disposition home or self-care (01) ==
LOC: EDUNIT# 16:35 → ER 16:36
DX: N39.0 Urinary tract infection, site not specified (principal); R20.2 Paresthesia of skin; F41.9 Anxiety disorder, unspecified; F32.9 Major depressive disorder, single episode, unspecified; E11.9 Type 2 diabetes mellitus without complications; K21.9 Gastro-esophageal reflux disease without esophagitis; I10 Essential (primary) hypertension; E78.00 Pure hypercholesterolemia, unspecified; I25.10 Atherosclerotic heart disease of native coronary artery without angina pectoris; G43.909 Migraine, unspecified, not intractable, without status migrainosus; J43.9 Emphysema, unspecified; F17.210 Nicotine dependence, cigarettes, uncomplicated; Z90.710 Acquired absence of both cervix and uterus; Z95.5 Presence of coronary angioplasty implant and graft; Z87.01 Personal history of pneumonia (recurrent); Z79.84 Long term (current) use of oral hypoglycemic drugs; Z88.0 Allergy status to penicillin; Z88.6 Allergy status to analgesic agent; Z88.8 Allergy status to other drugs, medicaments and biological substances
CPT/HCPCS: 36415; 70450; 71046; 72125; 80053; 80306; 80320; 81000; 83735; 84484; 85025; 85610; 85730; 87088; 93005; 93041; 96374

== ENCOUNTER 2018-02-26 05:52 | Outpatient (CLI) | payer MEDICAID ==
[~2018-02-26] VITALS: Ht 170.2 cm; Wt 81.6 kg
[~2018-02-26 05:52] MED LIST changes: +METH4TAB PO
[2018-02-26] MEDS ORDERED: LEVO50TA6 PO (12:47)
[2018-02-26] MEDS ORDERED: ATOR40TA70 PO (12:47)
[2018-02-26] MEDS ORDERED: BUPR-168 PO (12:47)
[2018-02-26] MEDS ORDERED: CLOP75TA28 PO (12:47)
[2018-02-26] MEDS ORDERED: GABA-488 PO (12:47)
[2018-02-26] MEDS ORDERED: RT-ALBUINH IH (12:47)
[2018-02-26] MEDS ORDERED: LISI-556 PO (12:47)
[2018-02-26] MEDS ORDERED: AMLO5TAB2 PO (12:47)
[2018-02-26] MEDS ORDERED: METF500T4 PO (12:47)
[2018-02-26] MEDS ORDERED: LORA10TA7 PO (12:47)
[2018-02-26] MEDS ORDERED: BUDE10.22 IH (12:47)
[2018-02-26] MEDS ORDERED: HYDR-3584 PO (12:47)
[2018-02-26] MEDS ORDERED: MELO15TA39 PO (12:47)
[2018-02-26] MEDS ORDERED: NITR0.4T39 SL (12:47)
[2018-02-26] MEDS ORDERED: IBUP-1780 PO (12:47)
[2018-02-26] MEDS ORDERED: OXYB15TA PO (12:47)
== END 2018-02-26 12:49 ==
LOC: PREOP 05:52
PROVIDERS: ATTEND Surgery
DX: Z01.818 Encounter for other preprocedural examination (principal); R13.10 Dysphagia, unspecified

== ENCOUNTER 2018-03-03 09:01 | Day surgery (SDC) | payer MEDICAID ==
[~2018-03-03] VITALS: Ht 170.2 cm; Wt 81.6 kg
[~2018-03-03 09:01] MED LIST changes: +AMLO5TAB2 PO; +BUPR-168 PO; +CLOP75TA28 PO; +GABA-488 PO; +HYDR-3584 PO; +LEVO50TA6 PO; +LISI-556 PO; +MELO15TA39 PO; +NITR0.4T39 SL; +RT-ALBUINH IH
--- OUTSIDE RECORDS SUMMARY | 2018-03-03 09:06 | XMS REPORT | Continuity of Care Document ---
Author Author [employer] Organization [facility] Address Unknown Phone Unavailable Care Team Providers Care Advertising Sales Associate Name Role Phone [employer] Unavailable Unavailable Problems Medications Allergies, Adverse Reactions, Alerts Immunizations Results Vital Signs Encounters Location Location Details Encounter Type Encounter Number Reason For Visit Attending Provider ADM Date DC Date Status Source OUTPATIENT [id number] [place] [place] 10/07/2016 10/07/2016 Active [facility] OP SURGERY [id number] KEYANA SANCHEZ Active [facility] O Active [facility] Procedures Plan of Care Social History Assessment and Plan Family History Advance Directives Functional Status
--- OUTSIDE RECORDS SUMMARY | 2018-03-03 09:06 | XMS REPORT | Encounter Summary ---
Author Author [facility] Organization [facility] Address Unknown Phone Unavailable Care Team Providers Care Residential Real Estate Sales Manager Name Role Phone Osvaldo Palafox DO Unavailable Hermila Durbin MD Unavailable Rishi Cartwright MD Unavailable Donell Haque PA-C Unavailable Lizet Parsons RN Unavailable Unavailable Kristofer Dowling MD Unavailable Unavailable Osvaldo Palafox DO PCP Reason for Visit * Reason Comments Medication Refill Encounter Details Date Type Department Care Team Description 12/30/2017 Refill [facility] Rishi Cartwright MD Physicians - Urology [address] [facility] [address] FLOOR POD [address] [place] [address] [facility] [place] [address] OFFICE BLDG [phone] [place] [address] Social History Tobacco Use Types Packs/Day Years Used Date Current Every Day Smoker Cigarettes 0.5 30 Smokeless Tobacco: Never Used Alcohol Use Drinks/Week oz/Week Comments No Sex Assigned at Date Recorded Not on file as of this encounter Plan of Treatment Not on fileas of this encounter Visit Diagnoses Not on filein this encounter
--- OUTSIDE RECORDS SUMMARY | 2018-03-03 09:06 | XMS REPORT | Clinical Summary ---
Author Author [facility] Organization [facility] Address Unknown Phone Unavailable Care Team Providers Care Property Officer Name Role Phone Osvaldo Palafox DO Unavailable [...] in the Health Information Management department at [phone] for further assistance in locating additional records.[facility] Allergies Active Allergy Reactions Severity Noted Date [...] Durbin - referral to Dr. 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
--- OUTSIDE RECORDS SUMMARY | 2018-03-03 09:24 | XMS REPORT | Continuity of Care Document ---
Author Author [facility] Address Unknown Phone Unavailable Allergies Active Description Code Type Severity Reaction Onset Reported/Identified Relationship to Patient Clinical Status Yes codeine Drug Allergy N/A N/A 01/02/2009 Yes Penicillins Drug Allergy N/A N/A 01/02/2009 Yes codeine Drug Allergy 01/02/2009 Yes Penicillins Drug Allergy 01/02/2009 Yes aspirin Drug Allergy N/A N/A 12/02/2012 Yes aspirin Drug Allergy 12/02/2012 Yes peanut Drug Allergy N/A N/A 2014 Yes aspirin [id number] Drug Allergy Mild Nausea 02/19/2015 Yes codeine [id number] Drug Allergy Mild Nausea 02/19/2015 Yes tramadol [id number] Drug Allergy Mild N/V 07/16/2015 Yes Penicillins [id number] Drug Allergy Mild Hives 03/05/2016 Yes amlodipine besylate [id number] Drug Allergy Unknown N/A 03/05/2016 Yes benazepril HCl [id number] Drug Allergy Unknown N/A 03/05/2016 Yes Knjvdgw-Tmu-Dbg Reductase Inhibitor [id number] Drug Allergy Unknown N/A 04/2016 Medications There [...] Type Ii - Uncomplicated, Uncontrolled 06/27/2008 MAD[employer]ine 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, ETELVINA L 250.02 Diabetes Mellitus Type Ii - Uncomplicated, Uncontrolled 06/27/2008 MADL 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, ETELVINA L 250.02 Diabetes Mellitus Type Ii - Uncomplicated, Uncontrolled 06/27/2008 MADL 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, ETELVINA L 250.02 Diabetes Mellitus Type Ii - Uncomplicated, Uncontrolled 06/27/2008 SALGUERO DO LADONNA K 250.02 Diabetes Mellitus Type Ii - Uncomplicated, Uncontrolled 06/27/2008 NOEMY PRAKASH LADONNA K 250.02 Diabetes Mellitus Type Ii - Uncomplicated, Uncontrolled 06/27/2008 MADMaxine 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, ETELVINA L 250.02 Diabetes Mellitus Type Ii - Uncomplicated, Uncontrolled 06/27/2008 MADL 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, ETELVINA L 250.02 Diabetes Mellitus Type Ii - Uncomplicated, Uncontrolled 06/27/2008 MADL 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, ETELVINA L 250.02 Diabetes Mellitus Type Ii - Uncomplicated, Uncontrolled 06/27/2008 MADL 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, ETELVINA L 250.02 Diabetes Mellitus Type Ii - Uncomplicated, Uncontrolled 06/27/2008 MADL 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, ETELVINA L 250.02 Diabetes Mellitus Type Ii - Uncomplicated, Uncontrolled 06/27/2008 MADL 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, ETELVINA L 250.02 Diabetes Mellitus Type Ii - Uncomplicated, Uncontrolled 06/27/2008 MADL 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, ETELVINA L 250.02 Diabetes Mellitus Type Ii - Uncomplicated, Uncontrolled 06/27/2008 SALGUERO DO, LADONNA K 250.02 Diabetes Mellitus Type Ii - Uncomplicated, Uncontrolled 06/27/2008 SALGUERO DO, LADONNA K 250.02 Diabetes Mellitus Type Ii - Uncomplicated, Uncontrolled 06/27/2008 MADL 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, ETELVINA L 250.02 Diabetes Mellitus Type Ii - Uncomplicated, Uncontrolled 06/27/2008 SALGUERO DO, LADONNA K 250.02 Diabetes Mellitus Type Ii - Uncomplicated, Uncontrolled 06/27/2008 MADL 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, ETELVINA L 250.02 Diabetes Mellitus Type Ii [...] K 401.1 ESSENTIAL HYPERTENSION BENIGN 09/27/2008 MADL 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, ETELVINA L 250.00 DIABETES MELLITUS 09/27/2008 MADL 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, ETELVINA L 401.1 ESSENTIAL HYPERTENSION BENIGN 09/27/2008 MADL 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, ETELVINA L 250.00 DIABETES MELLITUS 09/27/2008 MADL 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, ETELVINA L 401.1 ESSENTIAL HYPERTENSION BENIGN 09/27/2008 MADL 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, ETELVINA L 250.00 DIABETES MELLITUS 09/27/2008 MADL 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, ETELVINA L 401.1 ESSENTIAL HYPERTENSION BENIGN 09/27/2008 SALGUERO DO, LADONNA K 250.00 DIABETES MELLITUS 09/27/2008 SALGUERO DO, LADONNA K 401.1 ESSENTIAL HYPERTENSION BENIGN 09/27/2008 SALGUERO DO, LADONNA K 250.00 DIABETES MELLITUS 09/27/2008 SALGUERO DO, LADONNA K 401.1 ESSENTIAL HYPERTENSION BENIGN 09/27/2008 MADL 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, ETELVINA L 250.00 DIABETES MELLITUS 09/27/2008 MADL 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, ETELVINA L 401.1 ESSENTIAL HYPERTENSION BENIGN 09/27/2008 MADL 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, ETELVINA L 250.00 DIABETES MELLITUS 09/27/2008 MADL 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, ETELVINA L 401.1 ESSENTIAL HYPERTENSION BENIGN 09/27/2008 MADL 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, ETELVINA L 250.00 DIABETES MELLITUS 09/27/2008 MADL 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, ETELVINA L 401.1 ESSENTIAL HYPERTENSION BENIGN 09/27/2008 MADL 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, ETELVINA L 250.00 DIABETES MELLITUS 09/27/2008 MADL 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, ETELVINA L 401.1 ESSENTIAL HYPERTENSION BENIGN 09/27/2008 MADL 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, ETELVINA L 250.00 DIABETES MELLITUS 09/27/2008 MADL 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, ETELVINA L 401.1 ESSENTIAL HYPERTENSION BENIGN 09/27/2008 MADL 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, ETELVINA L 250.00 DIABETES MELLITUS 09/27/2008 MADL 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, ETELVINA L 401.1 ESSENTIAL HYPERTENSION BENIGN 09/27/2008 MADL 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, ETELVINA L 250.00 DIABETES MELLITUS 09/27/2008 MADL 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, ETELVINA L 401.1 ESSENTIAL HYPERTENSION BENIGN 09/27/2008 SALGUERO DO, LADONNA K 250.00 DIABETES MELLITUS 09/27/2008 SALGUERO DO, LADONNA K 401.1 ESSENTIAL HYPERTENSION BENIGN 09/27/2008 SALGUERO DO, LADONNA K 250.00 DIABETES MELLITUS 09/27/2008 SALGUERO DO, LADONNA K 401.1 ESSENTIAL HYPERTENSION BENIGN 09/27/2008 MADL 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, ETELVINA L 250.00 DIABETES MELLITUS 09/27/2008 MADL 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, ETELVINA L 401.1 ESSENTIAL HYPERTENSION BENIGN 09/27/2008 SALGUERO DO, LADONNA K 250.00 DIABETES MELLITUS 09/27/2008 TERE SALGUERO DOA K 401.1 ESSENTIAL HYPERTENSION BENIGN 09/27/2008 MADL 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, ETELVINA L 250.00 DIABETES MELLITUS 09/27/2008 MADL 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, ETELVINA L 401.1 ESSENTIAL HYPERTENSION BENIGN 11/01/2008 [...] In Joint Involving Lower Leg 11/01/2008 MADL 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, ETELVINA L 719.46 Pain In Joint Involving Lower Leg 11/01/2008 MADL 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, ETELVINA L 719.46 Pain In Joint Involving Lower Leg 11/01/2008 MADL 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, ETELVINA L 719.46 Pain In Joint Involving Lower Leg 11/01/2008 NOEMY DOLADONNA K 719.46 Pain In Joint Involving Lower Leg 11/01/2008 LADONNA SALGUERO DO K 719.46 Pain In Joint Involving Lower Leg 11/01/2008 MADL 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, ETELVINA L 719.46 Pain In Joint Involving Lower Leg 11/01/2008 MADL 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, ETELVINA L 719.46 Pain In Joint Involving Lower Leg 11/01/2008 MADL 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, ETELVINA L 719.46 Pain In Joint Involving Lower Leg 11/01/2008 MADL 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, ETELVINA L 719.46 Pain In Joint Involving Lower Leg 11/01/2008 MADL 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, ETELVINA L 719.46 Pain In Joint Involving Lower Leg 11/01/2008 MADL 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, ETELVINA L 719.46 Pain In Joint Involving Lower Leg 11/01/2008 MADL 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, ETELVINA L 719.46 Pain In Joint Involving Lower Leg 11/01/2008 NOEMY DOLADONNA K 719.46 Pain In Joint Involving Lower Leg 11/01/2008 LADONNA SALGUERO DO K 719.46 Pain In Joint Involving Lower Leg 11/01/2008 MADL 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, ETELVINA L 719.46 Pain In Joint Involving Lower Leg 11/01/2008 NOEMY DOLADONNA K 719.46 Pain In Joint Involving Lower Leg 11/01/2008 MADL 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, ETELVINA L 719.46 Pain In Joint Involving [...] MD 496 CHRONIC OBSTRUCTIVE PULMONARY DISEASE 12/12/2008 BYORN BOSS MD 728.85 Spasm Of Muscle 12/12/2008 [...] K 728.85 Spasm Of Muscle 12/12/2008 MADL 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, ETELVINA L 496 CHRONIC OBSTRUCTIVE PULMONARY DISEASE 12/12/2008 MADL 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, ETELVINA L 728.85 Spasm Of Muscle 12/12/2008 MADL 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, ETELVINA L 496 CHRONIC OBSTRUCTIVE PULMONARY DISEASE 12/12/2008 MADL 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, ETELVINA L 728.85 Spasm Of Muscle 12/12/2008 MADL 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, ETELVINA L 496 CHRONIC OBSTRUCTIVE PULMONARY DISEASE 12/12/2008 MADL 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, ETELVINA L 728.85 Spasm Of Muscle 12/12/2008 SALGUERO DO, LADONNA K 496 CHRONIC OBSTRUCTIVE PULMONARY DISEASE 12/12/2008 SALGUERO DO, LADONNA K 728.85 Spasm Of Muscle 12/12/2008 SALGUERO DO, LADONNA K 496 CHRONIC OBSTRUCTIVE PULMONARY DISEASE 12/12/2008 SALGUERO DO, LADONNA K 728.85 Spasm Of Muscle 12/12/2008 MADL 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, ETELVINA L 496 CHRONIC OBSTRUCTIVE PULMONARY DISEASE 12/12/2008 MADL 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, ETELVINA L 728.85 Spasm Of Muscle 12/12/2008 MADL 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, ETELVINA L 496 CHRONIC OBSTRUCTIVE PULMONARY DISEASE 12/12/2008 MADL 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, ETELVINA L 728.85 Spasm Of Muscle 12/12/2008 MADL 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, ETELVINA L 496 CHRONIC OBSTRUCTIVE PULMONARY DISEASE 12/12/2008 MADL 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, ETELVINA L 728.85 Spasm Of Muscle 12/12/2008 MADL 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, ETELVINA L 496 CHRONIC OBSTRUCTIVE PULMONARY DISEASE 12/12/2008 MADL 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, ETELVINA L 728.85 Spasm Of Muscle 12/12/2008 MADL 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, ETELVINA L 496 CHRONIC OBSTRUCTIVE PULMONARY DISEASE 12/12/2008 MADL 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, ETELVINA L 728.85 Spasm Of Muscle 12/12/2008 MADL 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, ETELVINA L 496 CHRONIC OBSTRUCTIVE PULMONARY DISEASE 12/12/2008 MADL 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, ETELVINA L 728.85 Spasm Of Muscle 12/12/2008 MADL 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, ETELVINA L 496 CHRONIC OBSTRUCTIVE PULMONARY DISEASE 12/12/2008 MADL 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, ETELVINA L 728.85 Spasm Of Muscle 12/12/2008 SALGUERO DO, LADONNA K 496 CHRONIC OBSTRUCTIVE PULMONARY DISEASE 12/12/2008 SALGUERO DO, LADONNA K 728.85 Spasm Of Muscle 12/12/2008 SALGUERO DO, LADONNA K 496 CHRONIC OBSTRUCTIVE PULMONARY DISEASE 12/12/2008 SALGUERO DO, LADONNA K 728.85 Spasm Of Muscle 12/12/2008 MADL 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, ETELVINA L 496 CHRONIC OBSTRUCTIVE PULMONARY DISEASE 12/12/2008 MADL 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, ETELVINA L 728.85 Spasm Of Muscle 12/12/2008 SALGUERO DO, LADONNA K 496 CHRONIC OBSTRUCTIVE PULMONARY DISEASE 12/12/2008 SALGUERO DO, LADONNA K 728.85 Spasm Of Muscle 12/12/2008 MADL 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, ETELVINA L 496 CHRONIC OBSTRUCTIVE PULMONARY DISEASE 12/12/2008 MADL 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, ETELVINA L 728.85 Spasm Of Muscle 01/11/2009 [...] 786.50 Chest Pain Or Discomfort 01/11/2009 MADL 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, ETELVINA L 786.50 Chest Pain Or Discomfort 01/11/2009 MADL 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, ETELVINA L 786.50 Chest Pain Or Discomfort 01/11/2009 MADL 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, ETELVINA L 786.50 Chest Pain Or Discomfort 01/11/2009 SALGUERO DO, LADONNA K 786.50 Chest Pain Or Discomfort 01/11/2009 SALGUERO DO, LADONNA K 786.50 Chest Pain Or Discomfort 01/11/2009 MADL 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, ETELVINA L 786.50 Chest Pain Or Discomfort 01/11/2009 MADL 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, ETELVINA L 786.50 Chest Pain Or Discomfort 01/11/2009 MADL 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, ETELVINA L 786.50 Chest Pain Or Discomfort 01/11/2009 MADL 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, ETELVINA L 786.50 Chest Pain Or Discomfort 01/11/2009 MADL 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, ETELVINA L 786.50 Chest Pain Or Discomfort 01/11/2009 MADL 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, ETELVINA L 786.50 Chest Pain Or Discomfort 01/11/2009 MADL 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, ETELVINA L 786.50 Chest Pain Or Discomfort 01/11/2009 SALGUERO DO, LADONNA K 786.50 Chest Pain Or Discomfort 01/11/2009 SALGUERO DO, LADONNA K 786.50 Chest Pain Or Discomfort 01/11/2009 MADL 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, ETELVINA L 786.50 Chest Pain Or Discomfort 01/11/2009 SALGUERO DO, LADONNA K 786.50 Chest Pain Or Discomfort 01/11/2009 MADL 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, ETELVINA L 786.50 Chest Pain Or Discomfort 02/20/2009 MORGAN 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, LAURIE S 709.9 Dermatology - Skin Condition 02/20/2009 709.9 Dermatology - Skin Condition 02/20/2009 MORGAN 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, LAURIE S 709.9 Dermatology - Skin Condition 02/20/2009 MORGAN 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, LAURIE S 709.9 Dermatology - Skin Condition [...] 709.9 Dermatology - Skin Condition 02/20/2009 MADL 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, ETELVINA L 709.9 Dermatology - Skin Condition 02/20/2009 MADL 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, ETELVINA L 709.9 Dermatology - Skin Condition 02/20/2009 MADL 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, ETELVINA L 709.9 Dermatology - Skin Condition 02/20/2009 SALGUERO DO, LADONNA K 709.9 Dermatology - Skin Condition 02/20/2009 SALGUERO DO, LADONNA K 709.9 Dermatology - Skin Condition 02/20/2009 MADL 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, ETELVINA L 709.9 Dermatology - Skin Condition 02/20/2009 MADL 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, ETELVINA L 709.9 Dermatology - Skin Condition 02/20/2009 MADL 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, ETELVINA L 709.9 Dermatology - Skin Condition 02/20/2009 MADL 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, ETELVINA L 709.9 Dermatology - Skin Condition 02/20/2009 MADL 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, ETELVINA L 709.9 Dermatology - Skin Condition 02/20/2009 MADL 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, ETELVINA L 709.9 Dermatology - Skin Condition 02/20/2009 MADL 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, ETELVINA L 709.9 Dermatology - Skin Condition 02/20/2009 SALGUERO DO, LADONNA K 709.9 Dermatology - Skin Condition 02/20/2009 SALGUERO DO, LADONNA K 709.9 Dermatology - Skin Condition 02/20/2009 MADL 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, ETELVINA L 709.9 Dermatology - Skin Condition 02/20/2009 SALGUERO DO, LADONNA K 709.9 Dermatology - Skin Condition 02/20/2009 MADL 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, ETELVINA L 709.9 Dermatology - Skin Condition [...] Disorders Of Function Of Stomach 04/05/2009 MADL 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, ETELVINA L 536.8 Dyspepsia And Other Specified Disorders Of Function Of Stomach 04/05/2009 MADL 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, ETELVINA L 536.8 Dyspepsia And Other Specified Disorders Of Function Of Stomach 04/05/2009 MADL 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, ETELVINA L 536.8 Dyspepsia And Other Specified Disorders Of Function Of Stomach 04/05/2009 SALGUERO DO, LADONNA K 536.8 Dyspepsia And Other Specified Disorders Of Function Of Stomach 04/05/2009 SALGUERO DO, LADONNA K 536.8 Dyspepsia And Other Specified Disorders Of Function Of Stomach 04/05/2009 MADL 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 ETELVINA L 536.8 Dyspepsia And Other Specified Disorders Of Function Of Stomach 04/05/2009 MADL 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, ETELVINA L 536.8 Dyspepsia And Other Specified Disorders Of Function Of Stomach 04/05/2009 MADL 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, ETELVINA L 536.8 Dyspepsia And Other Specified Disorders Of Function Of Stomach 04/05/2009 MADL 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, ETELVINA L 536.8 Dyspepsia And Other Specified Disorders Of Function Of Stomach 04/05/2009 MADL 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, ETELVINA L 536.8 Dyspepsia And Other Specified Disorders Of Function Of Stomach 04/05/2009 MADL 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, ETELVINA L 536.8 Dyspepsia And Other Specified Disorders Of Function Of Stomach 04/05/2009 MADL 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, ETELVINA L 536.8 Dyspepsia And Other Specified Disorders Of Function Of Stomach 04/05/2009 SALGUERO DO, LADONNA K 536.8 Dyspepsia And Other Specified Disorders Of Function Of Stomach 04/05/2009 SALGUERO DO, LADONNA K 536.8 Dyspepsia And Other Specified Disorders Of Function Of Stomach 04/05/2009 MADL 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, ETELVINA L 536.8 Dyspepsia And Other Specified Disorders Of Function Of Stomach 04/05/2009 SALGUERO DO, LADONNA K 536.8 Dyspepsia And Other Specified Disorders Of Function Of Stomach 04/05/2009 MADL 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, ETELVINA L 536.8 Dyspepsia And Other Specified [...] DO, LADONNA K 787.02 Nausea 05/09/2009 MADL 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, ETELVINA L 327.52 Organic Sleep-related Leg Cramps 05/09/2009 MADL 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, ETELVINA L 787.02 Nausea 05/09/2009 MADL 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, ETELVINA L 327.52 Organic Sleep-related Leg Cramps 05/09/2009 MADL 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, ETELVINA L 787.02 Nausea 05/09/2009 MADL 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, ETELVINA L 327.52 Organic Sleep-related Leg Cramps 05/09/2009 MADL 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, ETELVINA L 787.02 Nausea 05/09/2009 SALGUERO DO, LADONNA K 327.52 Organic Sleep-related Leg Cramps 05/09/2009 SALGUERO DO, LADONNA K 787.02 Nausea 05/09/2009 SALGUERO DO, LADONNA K 327.52 Organic Sleep-related Leg Cramps 05/09/2009 SALGUERO DO, LADONNA K 787.02 Nausea 05/09/2009 MADL 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, ETELVINA L 327.52 Organic Sleep-related Leg Cramps 05/09/2009 MADL 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, ETELVINA L 787.02 Nausea 05/09/2009 MADL 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, ETELVINA L 327.52 Organic Sleep-related Leg Cramps 05/09/2009 MADL 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, ETELVINA L 787.02 Nausea 05/09/2009 MADL 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, ETELVINA L 327.52 Organic Sleep-related Leg Cramps 05/09/2009 MADL 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, ETELVINA L 787.02 Nausea 05/09/2009 MADL 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, ETELVINA L 327.52 Organic Sleep-related Leg Cramps 05/09/2009 MADL 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, ETELVINA L 787.02 Nausea 05/09/2009 MADL 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, ETELVINA L 327.52 Organic Sleep-related Leg Cramps 05/09/2009 MADL 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, ETELVINA L 787.02 Nausea 05/09/2009 MADL 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, ETELVINA L 327.52 Organic Sleep-related Leg Cramps 05/09/2009 MADL 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, ETELVINA L 787.02 Nausea 05/09/2009 MADL 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, ETELVINA L 327.52 Organic Sleep-related Leg Cramps 05/09/2009 MADL 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, ETELVINA L 787.02 Nausea 05/09/2009 SALGUERO DO, LADONNA K 327.52 Organic Sleep-related Leg Cramps 05/09/2009 SALGUERO DO, LADONNA K 787.02 Nausea 05/09/2009 SALGUERO DO, LADONNA K 327.52 Organic Sleep-related Leg Cramps 05/09/2009 SALGUERO DO, LADONNA K 787.02 Nausea 05/09/2009 MADL 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, ETELVINA L 327.52 Organic Sleep-related Leg Cramps 05/09/2009 MADL 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, ETELVINA L 787.02 Nausea 05/09/2009 SALGUERO DO, LADONNA K 327.52 Organic Sleep-related Leg Cramps 05/09/2009 SALGUERO DO, LADONNA K 787.02 Nausea 05/09/2009 MADL 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, ETELVINA L 327.52 Organic Sleep-related Leg Cramps 05/09/2009 MADL 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, ETELVINA L 787.02 Nausea 07/02/2009 LAURIE MORA [...] Upper Respiratory Infections Of Unspecified Site 07/02/2009 YBRON BOSS MD 780.4 Dizziness And Giddiness 07/02/2009 [...] K 780.4 Dizziness And Giddiness 07/02/2009 MADL 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, ETELVINA L 465.9 Acute Upper Respiratory Infections Of Unspecified Site 07/02/2009 MADL 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, ETELVINA L 780.4 Dizziness And Giddiness 07/02/2009 MADL 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, ETELVINA L 465.9 Acute Upper Respiratory Infections Of Unspecified Site 07/02/2009 MADL 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, ETELVINA L 780.4 Dizziness And Giddiness 07/02/2009 MADL 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, ETELVINA L 465.9 Acute Upper Respiratory Infections Of Unspecified Site 07/02/2009 MADL 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, ETELVINA L 780.4 Dizziness And Giddiness 07/02/2009 SALGUERO DO, LADONNA K 465.9 Acute Upper Respiratory Infections Of Unspecified Site 07/02/2009 SALGUERO DO, LADONNA K 780.4 Dizziness And Giddiness 07/02/2009 SALGUERO DO, LADONNA K 465.9 Acute Upper Respiratory Infections Of Unspecified Site 07/02/2009 SALGUERO DO, LADONNA K 780.4 Dizziness And Giddiness 07/02/2009 MADL 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, ETELVINA L 465.9 Acute Upper Respiratory Infections Of Unspecified Site 07/02/2009 MADL 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, ETELVINA L 780.4 Dizziness And Giddiness 07/02/2009 MADL 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, ETELVINA L 465.9 Acute Upper Respiratory Infections Of Unspecified Site 07/02/2009 MADL 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, ETELVINA L 780.4 Dizziness And Giddiness 07/02/2009 MADL 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, ETELVINA L 465.9 Acute Upper Respiratory Infections Of Unspecified Site 07/02/2009 MADL 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, ETELVINA L 780.4 Dizziness And Giddiness 07/02/2009 MADL 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, ETELVINA L 465.9 Acute Upper Respiratory Infections Of Unspecified Site 07/02/2009 MADL 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, ETELVINA L 780.4 Dizziness And Giddiness 07/02/2009 MADL 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, ETELVINA L 465.9 Acute Upper Respiratory Infections Of Unspecified Site 07/02/2009 MADL 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, ETELVINA L 780.4 Dizziness And Giddiness 07/02/2009 MADL 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, ETELVINA L 465.9 Acute Upper Respiratory Infections Of Unspecified Site 07/02/2009 MADL 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, ETELVINA L 780.4 Dizziness And Giddiness 07/02/2009 MADL 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, ETELVINA L 465.9 Acute Upper Respiratory Infections Of Unspecified Site 07/02/2009 MADL 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, ETELVINA L 780.4 Dizziness And Giddiness 07/02/2009 SALGUERO DO, LADONNA K 465.9 Acute Upper Respiratory Infections Of Unspecified Site 07/02/2009 SALGUERO DO, LADONNA K 780.4 Dizziness And Giddiness 07/02/2009 SALGUERO DO, LADONNA K 465.9 Acute Upper Respiratory Infections Of Unspecified Site 07/02/2009 SALGUERO DO, LADONNA K 780.4 Dizziness And Giddiness 07/02/2009 MADL 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, ETELVINA L 465.9 Acute Upper Respiratory Infections Of Unspecified Site 07/02/2009 MADL 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, ETELVINA L 780.4 Dizziness And Giddiness 07/02/2009 SALGUERO DO, LADONNA K 465.9 Acute Upper Respiratory Infections Of Unspecified Site 07/02/2009 SALGUERO DO, LADONNA K 780.4 Dizziness And Giddiness 07/02/2009 MADL 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, ETELVINA L 465.9 Acute Upper Respiratory Infections Of Unspecified Site 07/02/2009 MADL 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, ETELVINA L 780.4 Dizziness And Giddiness 08/10/2009 MORGAN 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, LAURIE S 780.52 INSOMNIA UNSPECIFIED 08/10/2009 MORGAN 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, LAURIE S 783.1 Abnormal Weight Gain 08/10/2009 780.52 Insomnia Unspecified 08/10/2009 783.1 Abnormal Weight Gain 08/10/2009 MORGAN 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, LAURIE S 780.52 Insomnia Unspecified 08/10/2009 MORGAN 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, LAURIE S 783.1 Abnormal Weight Gain 08/10/2009 MORGAN 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, LAURIE S 780.52 Insomnia Unspecified 08/10/2009 MORGAN 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, LAURIE S 783.1 Abnormal Weight Gain 08/10/2009 [...] K 783.1 Abnormal Weight Gain 08/10/2009 MADL 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, ETELVINA L 780.52 Insomnia Unspecified 08/10/2009 MADL 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, ETELVINA L 783.1 Abnormal Weight Gain 08/10/2009 MADL 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, ETELVINA L 780.52 Insomnia Unspecified 08/10/2009 MADL 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, ETELVINA L 783.1 Abnormal Weight Gain 08/10/2009 MADL 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, ETELVINA L 780.52 Insomnia Unspecified 08/10/2009 MADL 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, ETELVINA L 783.1 Abnormal Weight Gain 08/10/2009 SALGUERO DO, LADONNA K 780.52 Insomnia Unspecified 08/10/2009 SALGUERO DO, LADONNA K 783.1 Abnormal Weight Gain 08/10/2009 SALGUERO DO, LADONNA K 780.52 Insomnia Unspecified 08/10/2009 SALGUERO DO, LADONNA K 783.1 Abnormal Weight Gain 08/10/2009 MADL 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, ETELVINA L 780.52 Insomnia Unspecified 08/10/2009 MADL 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, ETELVINA L 783.1 Abnormal Weight Gain 08/10/2009 MADL 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, ETELVINA L 780.52 Insomnia Unspecified 08/10/2009 MADL 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, ETELVINA L 783.1 Abnormal Weight Gain 08/10/2009 MADL 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, ETELVINA L 780.52 Insomnia Unspecified 08/10/2009 MADL 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, ETELVINA L 783.1 Abnormal Weight Gain 08/10/2009 MADL 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, ETELVINA L 780.52 Insomnia Unspecified 08/10/2009 MADL 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, ETELVINA L 783.1 Abnormal Weight Gain 08/10/2009 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, ETELVINA L 780.52 Insomnia Unspecified 08/10/2009 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, ETELVINA L 783.1 Abnormal Weight Gain 08/10/2009 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, ETELVINA L 780.52 Insomnia Unspecified 08/10/2009 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, ETELVINA L 783.1 Abnormal Weight Gain 08/10/2009 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, ETELVINA L 780.52 Insomnia Unspecified 08/10/2009 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, ETELVINA L 783.1 Abnormal Weight Gain 08/10/2009 SALGUERO DO, LADONNA K 780.52 Insomnia Unspecified 08/10/2009 SALGUERO DO, LADONNA K 783.1 Abnormal Weight Gain 08/10/2009 SALGUERO DO, LADONNA K 780.52 Insomnia Unspecified 08/10/2009 SALGUERO DO, LADONNA K 783.1 Abnormal Weight Gain 08/10/2009 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, ETELVINA L 780.52 Insomnia Unspecified 08/10/2009 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, ETELVIAN L 783.1 Abnormal Weight Gain 08/10/2009 SALGUERO DO, LADONNA K 780.52 Insomnia Unspecified 08/10/2009 SALGUERO DO, LADONNA K 783.1 Abnormal Weight Gain 08/10/2009 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, ETELVINA L 780.52 Insomnia Unspecified 08/10/2009 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, ETELVINA L 783.1 Abnormal Weight Gain 09/04/2009 LAURIE MORA APRN S 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 09/04/2009 LAURIE MORA APRN S 780.79 Feelings Of Weakness 09/04/2009 LAURIE MORA APRN S 786.05 shortness of breath 09/04/2009 LAURIE MORA APRN S 786.2 Cough 09/04/2009 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 09/04/2009 780.79 Feelings Of Weakness 09/04/2009 786.05 Shortness Of Breath 09/04/2009 786.2 Cough 09/04/2009 MORGAN 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PALOMA BowserNDA S 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 09/04/2009 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, LAURIE S 780.79 Feelings Of Weakness 09/04/2009 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, LAURIE S 786.05 Shortness Of Breath 09/04/2009 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, LAURIE S 786.2 Cough 09/04/2009 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, LAURIE S 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 09/04/2009 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, LAURIE S 780.79 Feelings Of Weakness 09/04/2009 MORGAN 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PALOMA BowserNDA S 786.05 Shortness Of Breath 09/04/2009 [...] MD 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 09/04/2009 BYRON OBSS MD 780.79 Feelings Of Weakness 09/04/2009 BYRON [...] SALGUERO DO, LADONNA K 786.2 Cough 09/04/2009 SALUGERO DO, LADONNA K 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 09/04/2009 SALGUERO DO, LADONNA K 780.79 Feelings Of Weakness 09/04/2009 SALGUERO DO, LADONNA K 786.05 Shortness Of Breath 09/04/2009 SALGUERO DO, LADONNA K 786.2 Cough 09/04/2009 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, ETELVINA L 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 09/04/2009 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, ETELVINA L 780.79 Feelings Of Weakness 09/04/2009 MADL 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, ETELVINA L 786.05 Shortness Of Breath 09/04/2009 MADL 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, ETELVINA L 786.2 Cough 09/04/2009 MADL FARM SUPERVISOR, ETELVINA L 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 09/04/2009 MADL FARM SUPERVISOR, ETELVINA L 780.79 Feelings Of Weakness 09/04/2009 MADL FARM SUPERVISOR, ETELVINA L 786.05 Shortness Of Breath 09/04/2009 MADL FARM SUPERVISOR, ETELVINA L 786.2 Cough 09/04/2009 MADL FARM SUPERVISOR, ETELVINA L 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 09/04/2009 MADL FARM SUPERVISOR, ETELVINA L 780.79 Feelings Of Weakness 09/04/2009 MADL FARM SUPERVISOR, ETELVINA L 786.05 Shortness Of Breath 09/04/2009 MADL FARM SUPERVISOR, ETELVINA L 786.2 Cough 09/04/2009 SALGUERO DO, [...] DO, LADONNA K 786.2 Cough 09/04/2009 MADL FARM SUPERVISOR, ETELVINA L 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 09/04/2009 MADL FARM SUPERVISOR, ETELVINA L 780.79 Feelings Of Weakness 09/04/2009 MADL FARM SUPERVISOR, ETELVINA L 786.05 Shortness Of Breath 09/04/2009 MADL FARM SUPERVISOR, ETELVINA L 786.2 Cough 09/04/2009 MADL FARM SUPERVISOR, ETELVINA L 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 09/04/2009 MADL FARM SUPERVISOR, ETELVINA L 780.79 Feelings Of Weakness 09/04/2009 MADL FARM SUPERVISOR, ETELVINA L 786.05 Shortness Of Breath 09/04/2009 MADL FARM SUPERVISOR, ETELVINA L 786.2 Cough 09/04/2009 MADL FARM SUPERVISOR, ETELVINA L 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 09/04/2009 MADL FARM SUPERVISOR, ETELVINA L 780.79 Feelings Of Weakness 09/04/2009 MADL FARM SUPERVISOR, ETELVINA L 786.05 Shortness Of Breath 09/04/2009 MADL FARM SUPERVISOR, ETELVINA L 786.2 Cough 09/04/2009 MADL FARM SUPERVISOR, ETELVINA L 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 09/04/2009 MADL FARM SUPERVISOR, ETELVINA L 780.79 Feelings Of Weakness 09/04/2009 MADL FARM SUPERVISOR, ETELVINA L 786.05 Shortness Of Breath 09/04/2009 MADL FARM SUPERVISOR, ETELVINA L 786.2 Cough 09/04/2009 MADL FARM SUPERVISOR, ETELVINA L 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 09/04/2009 MADL FARM SUPERVISOR, ETELVINA L 780.79 Feelings Of Weakness 09/04/2009 MADL FARM SUPERVISOR, ETELVINA L 786.05 Shortness Of Breath 09/04/2009 MADL FARM SUPERVISOR, ETELVINA L 786.2 Cough 09/04/2009 MADL FARM SUPERVISOR, ETELVINA L 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 09/04/2009 MADL FARM SUPERVISOR, ETELVINA L 780.79 Feelings Of Weakness 09/04/2009 MADL FARM SUPERVISOR, ETELVINA L 786.05 Shortness Of Breath 09/04/2009 MADL FARM SUPERVISOR, ETELVINA L 786.2 Cough 09/04/2009 MADL FARM SUPERVISOR, ETELVINA L 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 09/04/2009 MADL FARM SUPERVISOR, ETELVINA L 780.79 Feelings Of Weakness 09/04/2009 MADL FARM SUPERVISOR, ETELVINA L 786.05 Shortness Of Breath 09/04/2009 MADL FARM SUPERVISOR, ETELVINA L 786.2 Cough 09/04/2009 SALGUERO DO, [...] DO, LADONNA K 786.2 Cough 09/04/2009 MADL FARM SUPERVISOR, ETELVINA L 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 09/04/2009 MADL FARM SUPERVISOR, ETELVINA L 780.79 Feelings Of Weakness 09/04/2009 MADL FARM SUPERVISOR, ETELVINA L 786.05 Shortness Of Breath 09/04/2009 MADL FARM SUPERVISOR, ETELVINA L 786.2 Cough 09/04/2009 SALGUERO DO, LADONNA K 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 09/04/2009 SALGUERO DO, LADONNA K 780.79 Feelings Of Weakness 09/04/2009 SALGUERO DO, LADONNA K 786.05 Shortness Of Breath 09/04/2009 SALGUERO DO, LADONNA K 786.2 Cough 09/04/2009 MADL FARM SUPERVISOR, ETELVINA L 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 09/04/2009 MADL FARM SUPERVISOR, ETELVINA L 780.79 Feelings Of Weakness 09/04/2009 MADL FARM SUPERVISOR, ETELVINA L 786.05 Shortness Of Breath 09/04/2009 MADL FARM SUPERVISOR, ETELVINA L 786.2 Cough 09/07/2009 MORGAN FARM SUPERVISOR, LAURIE S 079.99 Viral Syndrome 09/07/2009 079.99 Viral Syndrome 09/07/2009 MORGAN FARM SUPERVISOR, LAURIE S 079.99 Viral Syndrome 09/07/2009 MORGAN FARM SUPERVISOR, LAURIE S 079.99 Viral Syndrome 09/07/2009 ROMELIA [...] PRAKASHA K 079.99 Viral Syndrome 09/07/2009 MADL FARM SUPERVISOR, ETELVINA L 079.99 Viral Syndrome 09/07/2009 MADL FARM SUPERVISOR, ETELVINA L 079.99 Viral Syndrome 09/07/2009 MADL FARM SUPERVISOR, ETELVINA L 079.99 Viral Syndrome 09/07/2009 SALGUERO DO, LADONNA K 079.99 Viral Syndrome 09/07/2009 SALGUERO DO, LADONNA K 079.99 Viral Syndrome 09/07/2009 MADL FARM SUPERVISOR, ETELVINA L 079.99 Viral Syndrome 09/07/2009 MADL FARM SUPERVISOR, ETELVINA L 079.99 Viral Syndrome 09/07/2009 MADL FARM SUPERVISOR, ETELVINA L 079.99 Viral Syndrome 09/07/2009 MADL FARM SUPERVISOR, ETELVINA L 079.99 Viral Syndrome 09/07/2009 MADL FARM SUPERVISOR, ETELVINA L 079.99 Viral Syndrome 09/07/2009 MADL FARM SUPERVISOR, ETELVINA L 079.99 Viral Syndrome 09/07/2009 MADL FARM SUPERVISOR, ETELVINA L 079.99 Viral Syndrome 09/07/2009 SALGUERO DO, LADONNA K 079.99 Viral Syndrome 09/07/2009 SALGUERO DO, LADONNA K 079.99 Viral Syndrome 09/07/2009 MADL FARM SUPERVISOR, ETELVINA L 079.99 Viral Syndrome 09/07/2009 SALGUERO DO, LADONNA K 079.99 Viral Syndrome 09/07/2009 MADL FARM SUPERVISOR, ETELVINA L 079.99 Viral Syndrome 10/12/2009 LAURIE [...] DO, LADONNA K 799.02 Hypoxemia 10/12/2009 MADL FARM SUPERVISOR ETELVINA L 719.58 Stiffness Of Joint, Not Elsewhere Classified, Other Specified Sites 10/12/2009 MADL FARM SUPERVISOR, ETELVINA L 799.02 Hypoxemia 10/12/2009 MADL FARM SUPERVISOR, ETELVINA L 719.58 Stiffness Of Joint, Not Elsewhere Classified, Other Specified Sites 10/12/2009 MADL FARM SUPERVISOR, ETELVINA L 799.02 Hypoxemia 10/12/2009 MADL FARM SUPERVISOR, ETELVINA L 719.58 Stiffness Of Joint, Not Elsewhere Classified, Other Specified Sites 10/12/2009 MADL FARM SUPERVISOR, ETELVINA L 799.02 Hypoxemia 10/12/2009 SALGUERO DO, LADONNA K 719.58 Stiffness Of Joint, Not Elsewhere Classified, Other Specified Sites 10/12/2009 SALGUERO DO, LADONNA K 799.02 Hypoxemia 10/12/2009 SALGUERO DO, LADONNA K 719.58 Stiffness Of Joint, Not Elsewhere Classified, Other Specified Sites 10/12/2009 SALGUERO DO, LADONNA K 799.02 Hypoxemia 10/12/2009 MADL FARM SUPERVISOR, ETELVINA L 719.58 Stiffness Of Joint, Not Elsewhere Classified, Other Specified Sites 10/12/2009 MADL FARM SUPERVISOR, ETELVINA L 799.02 Hypoxemia 10/12/2009 MADL FARM SUPERVISOR, ETELVINA L 719.58 Stiffness Of Joint, Not Elsewhere Classified, Other Specified Sites 10/12/2009 MADL FARM SUPERVISOR, ETELVINA L 799.02 Hypoxemia 10/12/2009 MADL FARM SUPERVISOR, ETELVINA L 719.58 Stiffness Of Joint, Not Elsewhere Classified, Other Specified Sites 10/12/2009 MADL FARM SUPERVISOR, ETELVINA L 799.02 Hypoxemia 10/12/2009 MADL FARM SUPERVISOR, ETELVINA L 719.58 Stiffness Of Joint, Not Elsewhere Classified, Other Specified Sites 10/12/2009 MADL FARM SUPERVISOR, ETELVINA L 799.02 Hypoxemia 10/12/2009 MADL FARM SUPERVISOR, ETELVINA L 719.58 Stiffness Of Joint, Not Elsewhere Classified, Other Specified Sites 10/12/2009 MADL FARM SUPERVISOR, ETELVINA L 799.02 Hypoxemia 10/12/2009 MADL FARM SUPERVISOR, ETELVINA L 719.58 Stiffness Of Joint, Not Elsewhere Classified, Other Specified Sites 10/12/2009 MADL FARM SUPERVISOR, ETELVINA L 799.02 Hypoxemia 10/12/2009 MADL FARM SUPERVISOR, ETELVINA L 719.58 Stiffness Of Joint, Not Elsewhere Classified, Other Specified Sites 10/12/2009 MADL FARM SUPERVISOR, ETELVINA L 799.02 Hypoxemia 10/12/2009 SALGUERO DO, LADONNA K 719.58 Stiffness Of Joint, Not Elsewhere Classified, Other Specified Sites 10/12/2009 SALGUERO DO, LADONNA K 799.02 Hypoxemia 10/12/2009 SALGUERO DO, LADONNA K 719.58 Stiffness Of Joint, Not Elsewhere Classified, Other Specified Sites 10/12/2009 SALGUERO DO, LADONNA K 799.02 Hypoxemia 10/12/2009 MADL FARM SUPERVISOR, ETELVINA L 719.58 Stiffness Of Joint, Not Elsewhere Classified, Other Specified Sites 10/12/2009 MADL FARM SUPERVISOR, ETELVINA L 799.02 Hypoxemia 10/12/2009 SALGUERO DO, LADONNA K 719.58 Stiffness Of Joint, Not Elsewhere Classified, Other Specified Sites 10/12/2009 SALGUERO DO, LADONNA K 799.02 Hypoxemia 10/12/2009 MADL FARM SUPERVISOR, ETELVINA L 719.58 Stiffness Of Joint, Not Elsewhere Classified, Other Specified Sites 10/12/2009 MADL FARM SUPERVISOR, ETELVINA L 799.02 Hypoxemia 11/07/2009 PALOMA MORA APRNNDA S 300.00 ANXIETY UNSPEC 11/07/2009 PALOMA MORA APRNNDA S 305.1 NICOTINE DEPENDENCE - CONTINUOUS 11/07/2009 300.00 Anxiety Unspec 11/07/2009 305.1 NICOTINE DEPENDENCE - CONTINUOUS 11/07/2009 MORGAN FARM SUPERVISORPALOMA BowserNDA S 300.00 Anxiety Unspec 11/07/2009 MORGAN [...] 305.1 NICOTINE DEPENDENCE - CONTINUOUS 11/07/2009 MADL FARM SUPERVISOR, ETELVINA L 300.00 Anxiety Unspec 11/07/2009 MADL FARM SUPERVISOR, ETELVINA L 305.1 NICOTINE DEPENDENCE - CONTINUOUS 11/07/2009 MADL FARM SUPERVISOR, ETELVINA L 300.00 Anxiety Unspec 11/07/2009 MADL FARM SUPERVISOR, ETELVINA L 305.1 NICOTINE DEPENDENCE - CONTINUOUS 11/07/2009 MADL FARM SUPERVISOR, ETELVINA L 300.00 Anxiety Unspec 11/07/2009 MADL FARM SUPERVISOR, ETELVINA L 305.1 NICOTINE DEPENDENCE - CONTINUOUS 11/07/2009 SALGUERO DO, LADONNA K 300.00 Anxiety Unspec 11/07/2009 SALGUERO DO, LADONNA K 305.1 NICOTINE DEPENDENCE - CONTINUOUS 11/07/2009 SALGUERO DO, LADONNA K 300.00 Anxiety Unspec 11/07/2009 SALGUERO DO, LADONNA K 305.1 NICOTINE DEPENDENCE - CONTINUOUS 11/07/2009 MADL FARM SUPERVISOR, ETELVINA L 300.00 Anxiety Unspec 11/07/2009 MADL FARM SUPERVISOR, ETELVINA L 305.1 NICOTINE DEPENDENCE - CONTINUOUS 11/07/2009 MADL FARM SUPERVISOR, ETELVINA L 300.00 Anxiety Unspec 11/07/2009 MADL FARM SUPERVISOR, ETELVINA L 305.1 NICOTINE DEPENDENCE - CONTINUOUS 11/07/2009 MADL FARM SUPERVISOR, ETELVINA L 300.00 Anxiety Unspec 11/07/2009 MADL FARM SUPERVISOR, ETELVINA L 305.1 NICOTINE DEPENDENCE - CONTINUOUS 11/07/2009 MADL FARM SUPERVISOR, ETELVINA L 300.00 Anxiety Unspec 11/07/2009 MADL FARM SUPERVISOR, ETELVINA L 305.1 NICOTINE DEPENDENCE - CONTINUOUS 11/07/2009 MADL FARM SUPERVISOR, ETELVINA L 300.00 Anxiety Unspec 11/07/2009 MADL FARM SUPERVISOR, ETELVINA L 305.1 NICOTINE DEPENDENCE - CONTINUOUS 11/07/2009 MADL FARM SUPERVISOR, ETELVINA L 300.00 Anxiety Unspec 11/07/2009 MADL FARM SUPERVISOR, ETELVINA L 305.1 NICOTINE DEPENDENCE - CONTINUOUS 11/07/2009 MADL FARM SUPERVISOR, ETELVINA L 300.00 Anxiety Unspec 11/07/2009 MADL FARM SUPERVISOR, ETELVINA L 305.1 NICOTINE DEPENDENCE - CONTINUOUS 11/07/2009 SALGUERO DO, LADONNA K 300.00 Anxiety Unspec 11/07/2009 SALGUERO DO, LADONNA K 305.1 NICOTINE DEPENDENCE - CONTINUOUS 11/07/2009 SALGUERO DO, LADONNA K 300.00 Anxiety Unspec 11/07/2009 SALGUERO DO, LADONNA K 305.1 NICOTINE DEPENDENCE - CONTINUOUS 11/07/2009 MADL FARM SUPERVISOR, ETELVINA L 300.00 Anxiety Unspec 11/07/2009 MADL FARM SUPERVISOR, ETELVINA L 305.1 NICOTINE DEPENDENCE - CONTINUOUS 11/07/2009 SALGUERO DO, LADONNA K 300.00 Anxiety Unspec 11/07/2009 SALGUERO DO, LADONNA K 305.1 NICOTINE DEPENDENCE - CONTINUOUS 11/07/2009 MADL FARM SUPERVISOR, TEELVINA L 300.00 Anxiety Unspec 11/07/2009 MADL FARM SUPERVISOR, ETELVINA L 305.1 NICOTINE DEPENDENCE - CONTINUOUS 01/31/2010 LAURIE MORA APRN S 719.43 Joint Pain, Localized In The Wrist 01/31/2010 LAURIE MORA APRN S 782.0 Numbness (hypesthesia) 01/31/2010 719.43 Joint Pain, Localized In The Wrist 01/31/2010 782.0 Numbness ( hypesthesia) 01/31/2010 LAURIE MORA APRN 719.43 Joint Pain, Localized In The Wrist 01/31/2010 MORGAN FARM SUPERVISOR, LAURIE S 782.0 Numbness (hypesthesia) 01/31/2010 MORGAN FARM SUPERVISOR, LAURIE S 719.43 Joint Pain, Localized In [...] LADONNA K 782.0 Numbness (hypesthesia) 01/31/2010 MADL FARM SUPERVISOR, ETELVINA L 719.43 Joint Pain, Localized In The Wrist 01/31/2010 MADL FARM SUPERVISOR, ETELVINA L 782.0 Numbness (hypesthesia) 01/31/2010 MADL FARM SUPERVISOR, ETELVINA L 719.43 Joint Pain, Localized In The Wrist 01/31/2010 MADL FARM SUPERVISOR, ETELVINA L 782.0 Numbness (hypesthesia) 01/31/2010 MADL FARM SUPERVISOR, ETELVINA L 719.43 Joint Pain, Localized In The Wrist 01/31/2010 MADL FARM SUPERVISOR, ETELVINA L 782.0 Numbness (hypesthesia) 01/31/2010 SALGUERO DO, LADONNA K 719.43 Joint Pain, Localized In The Wrist 01/31/2010 SALGUERO DO, LADONNA K 782.0 Numbness (hypesthesia) 01/31/2010 SALGUERO DO, LADONNA K 719.43 Joint Pain, Localized In The Wrist 01/31/2010 SALGUERO DO, LADONNA K 782.0 Numbness (hypesthesia) 01/31/2010 MADL FARM SUPERVISOR, ETELVINA L 719.43 Joint Pain, Localized In The Wrist 01/31/2010 MADL FARM SUPERVISOR, ETELVINA L 782.0 Numbness (hypesthesia) 01/31/2010 MADL FARM SUPERVISOR, ETELVINA L 719.43 Joint Pain, Localized In The Wrist 01/31/2010 MADL FARM SUPERVISOR, ETELVINA L 782.0 Numbness (hypesthesia) 01/31/2010 MADL FARM SUPERVISOR, ETELVINA L 719.43 Joint Pain, Localized In The Wrist 01/31/2010 MADL FARM SUPERVISOR, ETELVINA L 782.0 Numbness (hypesthesia) 01/31/2010 MADL FARM SUPERVISOR, ETELVINA L 719.43 Joint Pain, Localized In The Wrist 01/31/2010 MADL FARM SUPERVISOR, ETELVINA L 782.0 Numbness (hypesthesia) 01/31/2010 MADL FARM SUPERVISOR, ETELVINA L 719.43 Joint Pain, Localized In The Wrist 01/31/2010 MADL FARM SUPERVISOR, ETELVINA L 782.0 Numbness (hypesthesia) 01/31/2010 MADL FARM SUPERVISOR, ETELVINA L 719.43 Joint Pain, Localized In The Wrist 01/31/2010 MADL FARM SUPERVISOR, ETELVINA L 782.0 Numbness (hypesthesia) 01/31/2010 MADL FARM SUPERVISOR, ETELVINA L 719.43 Joint Pain, Localized In The Wrist 01/31/2010 MADL FARM SUPERVISOR, ETELVINA L 782.0 Numbness (hypesthesia) 01/31/2010 SALGUERO DO, LADONNA K 719.43 Joint Pain, Localized In The Wrist 01/31/2010 SALGUERO DO, LADONNA K 782.0 Numbness (hypesthesia) 01/31/2010 SALGUERO DO, LADONNA K 719.43 Joint Pain, Localized In The Wrist 01/31/2010 SALGUERO DO, LADONNA K 782.0 Numbness (hypesthesia) 01/31/2010 MADL FARM SUPERVISOR, ETELVINA L 719.43 Joint Pain, Localized In The Wrist 01/31/2010 MADL FARM SUPERVISOR, ETELVINA L 782.0 Numbness (hypesthesia) 01/31/2010 SALGUERO DO LADONNA K 719.43 Joint Pain, Localized In The Wrist 01/31/2010 SALGUERO DO, LADONNA K 782.0 Numbness (hypesthesia) 01/31/2010 MADL FARM SUPERVISORHAMMAD BowserA L 719.43 Joint Pain, Localized In The Wrist 01/31/2010 MADL FARM SUPERVISOR, ETELVINA L 782.0 Numbness (hypesthesia) 03/14/2010 Ot [...] K 517.3 Acute Chest Syndrome 04/02/2010 MADMaxine FARM SUPERVISORHAMMAD BowserA L 517.3 Acute Chest Syndrome 04/02/2010 MADL FARM SUPERVISOR, ETELVINA L 517.3 Acute Chest Syndrome 04/02/2010 MADL FARM SUPERVISOR, ETELVINA L 517.3 Acute Chest Syndrome 04/02/2010 SALGUERO DO, LADONNA K 517.3 Acute Chest Syndrome 04/02/2010 SALGUERO DO, LADONNA K 517.3 Acute Chest Syndrome 04/02/2010 MADL FARM SUPERVISOR, ETELVINA L 517.3 Acute Chest Syndrome 04/02/2010 MADL FARM SUPERVISOR, ETELVINA L 517.3 Acute Chest Syndrome 04/02/2010 MADL FARM SUPERVISOR, ETELVINA L 517.3 Acute Chest Syndrome 04/02/2010 MADL FARM SUPERVISOR, ETELVINA L 517.3 Acute Chest Syndrome 04/02/2010 MADL FARM SUPERVISOR, ETELVINA L 517.3 Acute Chest Syndrome 04/02/2010 MADL FARM SUPERVISOR, ETELVINA L 517.3 Acute Chest Syndrome 04/02/2010 MADL FARM SUPERVISOR, ETELVINA L 517.3 Acute Chest Syndrome 04/02/2010 SALGUERO DO, LADONNA K 517.3 Acute Chest Syndrome 04/02/2010 SALGUERO DO, LADONNA K 517.3 Acute Chest Syndrome 04/02/2010 MADL FARM SUPERVISOR, ETELVINA L 517.3 Acute Chest Syndrome 04/02/2010 SALGUERO DO, LADONNA K 517.3 Acute Chest Syndrome 04/02/2010 MADL FARM SUPERVISOR, ETELVINA L 517.3 Acute Chest Syndrome 04/14/2010 Ot 305.1 04/14/2010 Ot 491.21 04/14/2010 Ot 786.05 05/20/2010 MORGAN FARM SUPERVISOR, LAURIE S 272.4 HYPERLIPIDEMIA 05/20/2010 MORGAN FARM SUPERVISOR, LAURIE S 414.01 CAD 05/20/2010 272.4 HYPERLIPIDEMIA 05/20/2010 414.01 CAD 05/20/2010 MORGAN FARM SUPERVISOR, LAURIE S 272.4 HYPERLIPIDEMIA 05/20/2010 MORGAN FARM SUPERVISOR, LAURIE S 414.01 CAD 05/20/2010 MORGAN FARM SUPERVISOR, LAURIE S 272.4 HYPERLIPIDEMIA 05/20/2010 MORGAN HUDSONN, LAURIE S 414.01 CAD 05/20/2010 ROMELIA FISHCER MD 272.4 HYPERLIPIDEMIA 05/20/2010 ROMELIA FISCHER MD [...] 414.01 CORONARY ARTERY STENOSIS MULTI-VESSEL 05/20/2010 MADL FARM SUPERVISOR, ETELVINA L 272.4 HYPERLIPIDEMIA 05/20/2010 MADL FARM SUPERVISOR, ETELVINA L 414.01 CORONARY ARTERY STENOSIS MULTI-VESSEL 05/20/2010 MADL FARM SUPERVISOR, ETELVINA L 272.4 HYPERLIPIDEMIA 05/20/2010 MADL FARM SUPERVISOR, ETELVINA L 414.01 CORONARY ARTERY STENOSIS MULTI-VESSEL 05/20/2010 MADL FARM SUPERVISOR, ETELVINA L 272.4 HYPERLIPIDEMIA 05/20/2010 MADL FARM SUPERVISOR, ETELVINA L 414.01 CORONARY ARTERY STENOSIS MULTI-VESSEL 05/20/2010 SALGUERO DO, LADONNA K 272.4 HYPERLIPIDEMIA 05/20/2010 SALGUERO DO, LADONNA K 414.01 CORONARY ARTERY STENOSIS MULTI-VESSEL 05/20/2010 SALGUERO DO, LADONNA K 272.4 HYPERLIPIDEMIA 05/20/2010 SALGUERO DO, LADONNA K 414.01 CORONARY ARTERY STENOSIS MULTI-VESSEL 05/20/2010 MADL FARM SUPERVISOR, ETELVINA L 272.4 HYPERLIPIDEMIA 05/20/2010 MADL FARM SUPERVISOR, ETELVINA L 414.01 CORONARY ARTERY STENOSIS MULTI-VESSEL 05/20/2010 MADL FARM SUPERVISOR, ETELVINA L 272.4 HYPERLIPIDEMIA 05/20/2010 MADL FARM SUPERVISOR, ETELVINA L 414.01 CORONARY ARTERY STENOSIS MULTI-VESSEL 05/20/2010 MADL FARM SUPERVISOR, ETELVINA L 272.4 HYPERLIPIDEMIA 05/20/2010 MADL FARM SUPERVISOR, ETELVINA L 414.01 CORONARY ARTERY STENOSIS MULTI-VESSEL 05/20/2010 MADL FARM SUPERVISOR, ETELVINA L 272.4 HYPERLIPIDEMIA 05/20/2010 MADL FARM SUPERVISOR, ETELVINA L 414.01 CORONARY ARTERY STENOSIS MULTI-VESSEL 05/20/2010 MADL FARM SUPERVISOR, ETELVINA L 272.4 HYPERLIPIDEMIA 05/20/2010 MADL FARM SUPERVISOR, ETELVINA L 414.01 CORONARY ARTERY STENOSIS MULTI-VESSEL 05/20/2010 MADL FARM SUPERVISOR, ETELVINA L 272.4 HYPERLIPIDEMIA 05/20/2010 MADL FARM SUPERVISOR, ETELVINA L 414.01 CORONARY ARTERY STENOSIS MULTI-VESSEL 05/20/2010 MADL FARM SUPERVISOR, ETELVINA L 272.4 HYPERLIPIDEMIA 05/20/2010 MADL FARM SUPERVISOR, ETELVINA L 414.01 CORONARY ARTERY STENOSIS MULTI-VESSEL 05/20/2010 SALGUERO DO, LADONNA K 272.4 HYPERLIPIDEMIA 05/20/2010 SALGUERO DO, LADONNA K 414.01 CORONARY ARTERY STENOSIS MULTI-VESSEL 05/20/2010 SALGUERO DO, LADONNA K 272.4 HYPERLIPIDEMIA 05/20/2010 SALGUERO DO, LADONNA K 414.01 CORONARY ARTERY STENOSIS MULTI-VESSEL 05/20/2010 MADL FARM SUPERVISOR, ETELVINA L 272.4 HYPERLIPIDEMIA 05/20/2010 MADL FARM SUPERVISOR, ETELVINA L 414.01 CORONARY ARTERY STENOSIS MULTI-VESSEL 05/20/2010 SALGUERO DO, LADONNA K 272.4 HYPERLIPIDEMIA 05/20/2010 SALGUERO DO, LADONNA K 414.01 CORONARY ARTERY STENOSIS MULTI-VESSEL 05/20/2010 MADL FARM SUPERVISOR, ETELVINA L 272.4 HYPERLIPIDEMIA 05/20/2010 MADL FARM SUPERVISOR, ETELVINA L 414.01 CORONARY ARTERY STENOSIS MULTI-VESSEL [...] 356.9 UNSPECIFIED IDIOPATHIC PERIPHERAL NEUROPATHY 07/31/2010 MADL FARM SUPERVISOR, ETELVINA L 356.9 UNSPECIFIED IDIOPATHIC PERIPHERAL NEUROPATHY 07/31/2010 MADL FARM SUPERVISOR, ETELVINA L 356.9 UNSPECIFIED IDIOPATHIC PERIPHERAL NEUROPATHY 07/31/2010 MADL FARM SUPERVISOR, ETELVINA L 356.9 UNSPECIFIED IDIOPATHIC PERIPHERAL NEUROPATHY 07/31/2010 SALGUERO DO, LADONNA K 356.9 UNSPECIFIED IDIOPATHIC PERIPHERAL NEUROPATHY 07/31/2010 SALGUERO DO, LADONNA K 356.9 UNSPECIFIED IDIOPATHIC PERIPHERAL NEUROPATHY 07/31/2010 MADL FARM SUPERVISOR, ETELVINA L 356.9 UNSPECIFIED IDIOPATHIC PERIPHERAL NEUROPATHY 07/31/2010 MADL FARM SUPERVISOR, ETELVINA L 356.9 UNSPECIFIED IDIOPATHIC PERIPHERAL NEUROPATHY 07/31/2010 MADL FARM SUPERVISOR, ETELVINA L 356.9 UNSPECIFIED IDIOPATHIC PERIPHERAL NEUROPATHY 07/31/2010 MADL FARM SUPERVISOR, ETELVINA L 356.9 UNSPECIFIED IDIOPATHIC PERIPHERAL NEUROPATHY 07/31/2010 MADL FARM SUPERVISOR, ETELVINA L 356.9 UNSPECIFIED IDIOPATHIC PERIPHERAL NEUROPATHY 07/31/2010 MADL FARM SUPERVISOR, ETELVINA L 356.9 UNSPECIFIED IDIOPATHIC PERIPHERAL NEUROPATHY 07/31/2010 MADL FARM SUPERVISOR, ETELVINA L 356.9 UNSPECIFIED IDIOPATHIC PERIPHERAL NEUROPATHY 07/31/2010 SALGUERO DO, LADONNA K 356.9 UNSPECIFIED IDIOPATHIC PERIPHERAL NEUROPATHY 07/31/2010 SALGUERO DO, LADONNA K 356.9 UNSPECIFIED IDIOPATHIC PERIPHERAL NEUROPATHY 07/31/2010 MADL FARM SUPERVISOR, ETELVINA L 356.9 UNSPECIFIED IDIOPATHIC PERIPHERAL NEUROPATHY 07/31/2010 SALGUERO DO, LADONNA K 356.9 UNSPECIFIED IDIOPATHIC PERIPHERAL NEUROPATHY 07/31/2010 MADL FARM SUPERVISOR, ETELVINA L 356.9 UNSPECIFIED IDIOPATHIC PERIPHERAL NEUROPATHY 08/01/2010 MORGAN FARM SUPERVISOR, LAURIE S 791.0 Microalbuminuria 08/01/2010 791.0 Microalbuminuria 08/01/2010 MORGAN FARM SUPERVISOR, LAURIE S 791.0 Microalbuminuria 08/01/2010 MORGAN FARM SUPERVISOR, LAURIE S 791.0 Microalbuminuria 08/01/2010 ROMELIA FISCHER [...] DO, LADONNA K 791.0 Microalbuminuria 08/01/2010 [employer]AD[employer] F[employer] SUPERVISOR, ETELVINA L 791.0 Microalbuminuria 08/01/2010 MAD[employer] F[employer] SUPERVISOR, ETELVINA L 791.0 Microalbuminuria 08/01/2010 MADL FARM SUPERVISOR, ETELVINA L 791.0 Microalbuminuria 08/01/2010 SALGUERO DO, LADONNA K 791.0 Microalbuminuria 08/01/2010 SALGUERO DO, LADONNA K 791.0 Microalbuminuria 08/01/2010 MAD[employer] FARM SUPERVISOR, ETELVINA L 791.0 Microalbuminuria 08/01/2010 MAD[employer] FARM SUPERVISOR, ETELVINA L 791.0 Microalbuminuria 08/01/2010 MAD[employer] FARM SUPERVISOR, ETELVINA L 791.0 Microalbuminuria 08/01/2010 MADL FARM SUPERVISOR, ETELVINA L 791.0 Microalbuminuria 08/01/2010 MAD[employer] FARM SUPERVISOR, ETELVINA L 791.0 Microalbuminuria 08/01/2010 MAD[employer] FARM SUPERVISOR, ETELVINA L 791.0 Microalbuminuria 08/01/2010 MAD[employer] FARM SUPERVISOR, ETELVINA L 791.0 Microalbuminuria 08/01/2010 SALGUERO DO, LADONNA K 791.0 Microalbuminuria 08/01/2010 SALGUERO DO, LADONNA K 791.0 Microalbuminuria 08/01/2010 MAD[employer] FARM SUPERVISOR, ETELVINA L 791.0 Microalbuminuria 08/01/2010 SALGUERO DO, LADONNA K 791.0 Microalbuminuria 08/01/2010 [employer]AD[employer] F[employer] SUPERVISOR, ETELVINA L 791.0 Microalbuminuria 08/05/2010 LAURIE MORA APRN S 721.0 CERVICAL SPONDYLOSIS WITHOUT MYELOPATHY 08/05/2010 721.0 Cervical Spondylosis Without Myelopathy 08/05/2010 LAURIE MORA APRN S 721.0 Cervical Spondylosis Without Myelopathy 08/05/2010 SUSHANT MORA APRNA S 721.0 Cervical Spondylosis Without Myelopathy 08/05/2010 ROMELIA FISCHER MD 721.0 Cervical Spondylosis Without Myelopathy 08/05/2010 YBRON BOSS MD 721.0 Cervical Spondylosis Without Myelopathy [...] 721.0 Cervical Spondylosis Without Myelopathy 08/05/2010 MADL FARM SUPERVISOR, ETELVINA L 721.0 Cervical Spondylosis Without Myelopathy 08/05/2010 MAD[employer] FARM SUPERVISOR, ETELVINA L 721.0 Cervical Spondylosis Without Myelopathy 08/05/2010 MAD[employer] FARM SUPERVISOR, ETELVINA L 721.0 Cervical Spondylosis Without Myelopathy 08/05/2010 SALGUERO DO, LADONNA K 721.0 Cervical Spondylosis Without Myelopathy 08/05/2010 SALGUERO DO, LADONNA K 721.0 Cervical Spondylosis Without Myelopathy 08/05/2010 MAD[employer] FARM SUPERVISOR, ETELVINA L 721.0 Cervical Spondylosis Without Myelopathy 08/05/2010 MADL FARM SUPERVISOR, ETELVINA L 721.0 Cervical Spondylosis Without Myelopathy 08/05/2010 MADL FARM SUPERVISOR, ETELVINA L 721.0 Cervical Spondylosis Without Myelopathy 08/05/2010 MADL FARM SUPERVISOR, ETELVINA L 721.0 Cervical Spondylosis Without Myelopathy 08/05/2010 MAD[employer] FARM SUPERVISOR, ETELVINA L 721.0 Cervical Spondylosis Without Myelopathy 08/05/2010 MADL FARM SUPERVISOR, ETELVINA L 721.0 Cervical Spondylosis Without Myelopathy 08/05/2010 MADL FARM SUPERVISOR, ETELVINA L 721.0 Cervical Spondylosis Without Myelopathy 08/05/2010 SALGUERO DO, LADONNA K 721.0 Cervical Spondylosis Without Myelopathy 08/05/2010 SALGUERO DO, LADONNA K 721.0 Cervical Spondylosis Without Myelopathy 08/05/2010 HUGOL FARM SUPERVISOR, ETELVINA Goodman 721.0 Cervical Spondylosis Without Myelopathy 08/05/2010 LADONNA SALGUERO DO K 721.0 Cervical Spondylosis Without Myelopathy 08/05/2010 MAD[employer] F[employer] SUPERVISOR, ETELVINA Goodamn 721.0 Cervical Spondylosis Without Myelopathy 08/07/2010 Ot 847.0 08/07/2010 Ot 847.2 08/07/2010 Ot 959.09 08/07/2010 Ot E000.8 08/07/2010 Ot E849.0 08/07/2010 Ot E884.2 08/13/2010 MORGAN HARRIS LAURIE S 441.4 ABDOMINAL ANEURYSM WITHOUT MENTION OF RUPTURE 08/13/2010 MORGAN FARM SUPERVISOR, LAURIE S 724.2 LUMBAGO 08/13/2010 441.4 Abdominal Aneurysm Without Mention Of Rupture 08/13/2010 724.2 LUMBAGO 08/13/2010 MORGAN HARRIS LAURIE S 441.4 Abdominal Aneurysm Without Mention Of Rupture 08/13/2010 MORGAN FARM SUPERVISOR, LAURIE S 724.2 LUMB[place]O 08/13/2010 MORGAN FARM SUPERVISOR, LAURIE S 441.4 Abdominal Aneurysm Without Mention [...] K 724.2 lower back pain 08/13/2010 MAD[employer] F[employer] SUPERVISOR, ETELVINA L 441.4 Abdominal Aneurysm Without Mention Of Rupture 08/13/2010 MAD[employer] FARM SUPERVISOR, ETELVINA L 724.2 lower back pain 08/13/2010 MAD[employer] FARM SUPERVISOR, ETELVINA L 441.4 Abdominal Aneurysm Without Mention Of Rupture 08/13/2010 MADL FARM SUPERVISOR, ETELVINA L 724.2 lower back pain 08/13/2010 MADL FARM SUPERVISOR, ETELVINA L 441.4 Abdominal Aneurysm Without Mention Of Rupture 08/13/2010 MADL FARM SUPERVISOR, ETELVINA L 724.2 lower back pain 08/13/2010 SALGUERO DO, LADONNA K 441.4 Abdominal Aneurysm Without Mention Of Rupture 08/13/2010 SALGUERO DO, LADONNA K 724.2 lower back pain 08/13/2010 SALGUERO DO, LADONNA K 441.4 Abdominal Aneurysm Without Mention Of Rupture 08/13/2010 SALGUERO DO, LADONNA K 724.2 lower back pain 08/13/2010 MADL FARM SUPERVISOR, ETELVINA L 441.4 Abdominal Aneurysm Without Mention Of Rupture 08/13/2010 MADL FARM SUPERVISOR, ETELVINA L 724.2 lower back pain 08/13/2010 MADL FARM SUPERVISOR, ETELVINA L 441.4 Abdominal Aneurysm Without Mention Of Rupture 08/13/2010 MADL FARM SUPERVISOR, ETELVINA L 724.2 lower back pain 08/13/2010 MADL FARM SUPERVISOR, ETELVINA L 441.4 Abdominal Aneurysm Without Mention Of Rupture 08/13/2010 MADL FARM SUPERVISOR, ETELVINA L 724.2 lower back pain 08/13/2010 MADL FARM SUPERVISOR, ETELVINA L 441.4 Abdominal Aneurysm Without Mention Of Rupture 08/13/2010 MADL FARM SUPERVISOR, ETELVINA L 724.2 lower back pain 08/13/2010 MADL FARM SUPERVISOR, ETELVINA L 441.4 Abdominal Aneurysm Without Mention Of Rupture 08/13/2010 MADL FARM SUPERVISOR, ETELVINA L 724.2 lower back pain 08/13/2010 MADL FARM SUPERVISOR, ETELVINA L 441.4 Abdominal Aneurysm Without Mention Of Rupture 08/13/2010 MADL FARM SUPERVISOR, ETELVINA L 724.2 lower back pain 08/13/2010 MADL FARM SUPERVISOR, ETELVINA L 441.4 Abdominal Aneurysm Without Mention Of Rupture 08/13/2010 MADL FARM SUPERVISOR, ETELVINA L 724.2 lower back pain 08/13/2010 SALGUERO DO, LADONNA K 441.4 Abdominal Aneurysm Without Mention Of Rupture 08/13/2010 SALGUERO DO, LADONNA K 724.2 lower back pain 08/13/2010 TERE SALGUERO DOA K 441.4 Abdominal Aneurysm Without Mention Of Rupture 08/13/2010 NOEMY DOTEREA K 724.2 lower back pain 08/13/2010 MADL FARM SUPERVISORETELVINA Bowser L 441.4 Abdominal Aneurysm Without Mention Of Rupture 08/13/2010 HUGOL ETELVINA HARRIS L 724.2 lower back pain 08/13/2010 TERE SALGUERO DOA K 441.4 Abdominal Aneurysm Without Mention Of Rupture 08/13/2010 TERE SALGUERO DOA K 724.2 lower back pain 08/13/2010 MADL FARM SUPERVISORHAMMAD BowserA L 441.4 Abdominal Aneurysm Without Mention [...] Pain In Joint Site Unspecified 12/12/2010 MORGAN FARM SUPERVISOR, LAURIE S 724.5 Back Pain, General 12/12/2010 MORGAN FARM SUPERVISOR, LAURIE S 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 12/12/2010 MORGAN FARM SUPERVISOR, LAURIE S 729.5 Arm Pain 12/12/2010 MORGAN FARM SUPERVISOR, LAURIE S 719.40 Pain In Joint Site Unspecified 12/12/2010 MORGAN FARM SUPERVISOR, LAURIE S 724.5 Back Pain, General 12/12/2010 MORGAN FARM SUPERVISOR, LAURIE S 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 12/12/2010 MORGAN FARM SUPERVISOR, LAURIE S 729.5 Arm Pain 12/12/2010 AMADO [...] LADONNA K 729.5 Arm Pain 12/12/2010 MADL FARM SUPERVISOR, ETELVINA L 719.40 Pain In Joint Site Unspecified 12/12/2010 MADL FARM SUPERVISOR, ETELVINA L 724.5 Back Pain, General 12/12/2010 MADL FARM SUPERVISOR, ETELVINA L 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 12/12/2010 MADL FARM SUPERVISOR, ETELVINA L 729.5 Arm Pain 12/12/2010 MADL FARM SUPERVISOR, ETELVINA L 719.40 Pain In Joint Site Unspecified 12/12/2010 MADL FARM SUPERVISOR, ETELVINA L 724.5 Back Pain, General 12/12/2010 MADL FARM SUPERVISOR, ETELVINA L 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 12/12/2010 MADL FARM SUPERVISOR, ETELVINA L 729.5 Arm Pain 12/12/2010 MADL FARM SUPERVISOR, ETELVINA L 719.40 Pain In Joint Site Unspecified 12/12/2010 MADL FARM SUPERVISOR, ETELVINA L 724.5 Back Pain, General 12/12/2010 MADL FARM SUPERVISOR, ETELVINA L 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 12/12/2010 MADL FARM SUPERVISOR, ETELVINA L 729.5 Arm Pain 12/12/2010 MADL FARM SUPERVISOR, ETELVINA L 719.40 Pain In Joint Site Unspecified 12/12/2010 MADL FARM SUPERVISOR, ETELVINA L 724.5 Back Pain, General 12/12/2010 MADL FARM SUPERVISOR, ETELVINA L 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 12/12/2010 MADL FARM SUPERVISOR, ETELVINA L 729.5 Arm Pain 12/12/2010 MADL FARM SUPERVISOR, ETELVINA L 719.40 Pain In Joint Site Unspecified 12/12/2010 MADL FARM SUPERVISOR, ETELVINA L 724.5 Back Pain, General 12/12/2010 MADL FARM SUPERVISOR, ETELVINA L 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 12/12/2010 MADL FARM SUPERVISOR, ETELVINA L 729.5 Arm Pain 12/12/2010 MADL FARM SUPERVISOR, ETELVINA L 719.40 Pain In Joint Site Unspecified 12/12/2010 MADL FARM SUPERVISOR, ETELVINA L 724.5 Back Pain, General 12/12/2010 MADL FARM SUPERVISOR, ETELVINA L 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 12/12/2010 MADL FARM SUPERVISOR, ETELIVNA L 729.5 Arm Pain 12/12/2010 SALGUERO DO, LADONNA K 719.40 Pain In Joint Site Unspecified 12/12/2010 SALGUERO DO, LADONNA K 724.5 Back Pain, General 12/12/2010 SALGUERO DO, LADONNA K 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 12/12/2010 SALGUERO DO, LADONNA K 729.5 Arm Pain 12/12/2010 MADL FARM SUPERVISOR, ETELVINA L 719.40 Pain In Joint Site Unspecified 12/12/2010 MADL FARM SUPERVISOR, ETELVINA L 724.5 Back Pain, General 12/12/2010 MADL FARM SUPERVISOR, ETELVINA L 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 12/12/2010 MADL FARM SUPERVISOR, ETELVINA L 729.5 Arm Pain 01/22/2011 Ot [...] V68.1 ISSUE OF REPEAT PRESCRIPTIONS 06/17/2011 MADL FARM SUPERVISORHAMMAD BowserA L V68.1 ISSUE OF REPEAT PRESCRIPTIONS 06/17/2011 SALGUERO DOTEREA K V68.1 ISSUE OF REPEAT PRESCRIPTIONS 06/17/2011 SALGUERO DOTEREA K V68.1 ISSUE OF REPEAT PRESCRIPTIONS 06/17/2011 MADL FARM SUPERVISORANDREZETELVINA L V68.1 ISSUE OF REPEAT PRESCRIPTIONS 06/17/2011 MADL FARM SUPERVISORANDREZETELVINA L V68.1 ISSUE OF REPEAT PRESCRIPTIONS 06/17/2011 MADL FARM SUPERVISOR, ETELVINA L V68.1 ISSUE OF REPEAT PRESCRIPTIONS 06/17/2011 MADL FARM SUPERVISORSARAETELVINA L V68.1 ISSUE OF REPEAT PRESCRIPTIONS 06/17/2011 MADL FARM SUPERVISOR, ETELVINA L V68.1 ISSUE OF REPEAT PRESCRIPTIONS 06/17/2011 MADL FARM SUPERVISORANDREZ BowserNYA L V68.1 ISSUE OF REPEAT PRESCRIPTIONS [...] TY 07/14/2011 Ot 414.01 CORONARY ATHEROSCLEROSIS OF [place] CORON 07/14/2011 Ot 496 CHR AIRWAY OBSTRUCT [...] (3 Yrs And Above, Im) 07/31/2011 MADL FARM SUPERVISOR, ETELVINA L V04.81 Flu Dx (3 Yrs And Above, Im) 07/31/2011 MADL FARM SUPERVISOR, ETELVINA L V04.81 Flu Dx (3 Yrs And Above, Im) 07/31/2011 MADL FARM SUPERVISOR, ETELVINA L V04.81 Flu Dx (3 Yrs And Above, Im) 07/31/2011 SALGUERO DO, LADONNA K V04.81 Flu Dx (3 Yrs And Above, Im) 07/31/2011 SALGUERO DO, LADONNA K V04.81 Flu Dx (3 Yrs And Above, Im) 07/31/2011 MADL FARM SUPERVISOR, ETELVINA L V04.81 Flu Dx (3 Yrs And Above, Im) 07/31/2011 MADL FARM SUPERVISOR, ETELVINA L V04.81 Flu Dx (3 Yrs And Above, Im) 07/31/2011 MADL FARM SUPERVISOR, ETELVINA L V04.81 Flu Dx (3 Yrs And Above, Im) 07/31/2011 MADL FARM SUPERVISOR, ETELVINA L V04.81 Flu Dx (3 Yrs And Above, Im) 07/31/2011 MADL FARM SUPERVISOR, ETELVINA L V04.81 Flu Dx (3 Yrs And Above, Im) 07/31/2011 MADL FARM SUPERVISOR, ETELVINA L V04.81 Flu Dx (3 Yrs And Above, Im) 07/31/2011 MADL FARM SUPERVISOR, ETELVINA L V04.81 Flu Dx (3 Yrs And Above, Im) 07/31/2011 SALGUERO DO, LADONNA K V04.81 Flu Dx (3 Yrs And Above, Im) 07/31/2011 SALGUERO DO, LADONNA K V04.81 Flu Dx (3 Yrs And Above, Im) 07/31/2011 MADL FARM SUPERVISOR, ETELVINA L V04.81 Flu Dx (3 Yrs And Above, Im) 07/31/2011 SALGUERO DO, LADONNA K V04.81 Flu Dx (3 Yrs And Above, Im) 07/31/2011 MADL FARM SUPERVISOR, ETELVINA L V04.81 Flu Dx (3 Yrs And Above, Im) 08/27/2011 MORGAN FARM SUPERVISOR, LAURIE S 780.50 SLEEP DISTURBANCE, UNSPECIFIED 08/27/2011 780.50 Sleep Disturbance, Unspecified 08/27/2011 MORGAN FARM SUPERVISOR, LAURIE S 780.50 Sleep Disturbance, Unspecified 08/27/2011 MORGAN FARM SUPERVISOR, LAURIE S 780.50 Sleep Disturbance, Unspecified 08/27/2011 [...] K 780.50 Sleep Disturbance, Unspecified 08/27/2011 MADL FARM SUPERVISOR, ETELVINA L 780.50 Sleep Disturbance, Unspecified 08/27/2011 MADL FARM SUPERVISOR, ETELVINA L 780.50 Sleep Disturbance, Unspecified 08/27/2011 MADL FARM SUPERVISOR, ETELVINA L 780.50 Sleep Disturbance, Unspecified 08/27/2011 SALGUERO DO, LADONNA K 780.50 Sleep Disturbance, Unspecified 08/27/2011 SALGUERO DO, LADONNA K 780.50 Sleep Disturbance, Unspecified 08/27/2011 MADL FARM SUPERVISOR, ETELVINA L 780.50 Sleep Disturbance, Unspecified 08/27/2011 MADL FARM SUPERVISOR, ETELVINA L 780.50 Sleep Disturbance, Unspecified 08/27/2011 MADL FARM SUPERVISOR, ETELVINA L 780.50 Sleep Disturbance, Unspecified 08/27/2011 MADL FARM SUPERVISOR, ETELVINA L 780.50 Sleep Disturbance, Unspecified 08/27/2011 MADL FARM SUPERVISOR, ETELVINA L 780.50 Sleep Disturbance, Unspecified 08/27/2011 MADL FARM SUPERVISOR, ETELVINA L 780.50 Sleep Disturbance, Unspecified 08/27/2011 MADL FARM SUPERVISOR, ETELVINA L 780.50 Sleep Disturbance, Unspecified 08/27/2011 SALGUERO DO, LADONNA K 780.50 Sleep Disturbance, Unspecified 08/27/2011 SALGUERO DO, LADONNA K 780.50 Sleep Disturbance, Unspecified 08/27/2011 MADL FARM SUPERVISOR, ETELVINA L 780.50 Sleep Disturbance, Unspecified 08/27/2011 SALGUERO DO, LADONNA K 780.50 Sleep Disturbance, Unspecified 08/27/2011 MADL FARM SUPERVISOR, ETELVINA L 780.50 Sleep Disturbance, Unspecified 09/26/2011 MORGAN FARM SUPERVISOR, LAURIE S 788.41 URINARY FREQUENCY 09/26/2011 MORGAN FARM SUPERVISOR, LAURIE S 788.63 URINARY URGENCY 09/26/2011 788.41 Urinary Frequency 09/26/2011 788.63 Urinary Urgency 09/26/2011 MORGAN FARM SUPERVISOR, LAURIE S 788.41 Urinary Frequency 09/26/2011 MORGAN FARM SUPERVISOR, LAURIE S 788.63 Urinary Urgency 09/26/2011 MORGAN FARM SUPERVISOR, LAURIE S 788.41 Urinary Frequency 09/26/2011 MORGAN FARM SUPERVISOR, LAURIE S 788.63 Urinary Urgency 09/26/2011 ROMELIA [...] LADONNA K 788.63 Urinary Urgency 09/26/2011 MADL FARM SUPERVISOR, ETELVINA L 788.41 Urinary Frequency 09/26/2011 MADL FARM SUPERVISOR, ETELVINA L 788.63 Urinary Urgency 09/26/2011 MADL FARM SUPERVISOR, ETELVINA L 788.41 Urinary Frequency 09/26/2011 MADL FARM SUPERVISOR, ETELVINA L 788.63 Urinary Urgency 09/26/2011 MADL FARM SUPERVISOR, ETELVINA L 788.41 Urinary Frequency 09/26/2011 MADL FARM SUPERVISOR, ETELVINA L 788.63 Urinary Urgency 09/26/2011 SALGUERO DO, LADONNA K 788.41 Urinary Frequency 09/26/2011 SALGUERO DO, LADONNA K 788.63 Urinary Urgency 09/26/2011 SALGUERO DO, LADONNA K 788.41 Urinary Frequency 09/26/2011 SALGUERO DO, LADONNA K 788.63 Urinary Urgency 09/26/2011 MADL FARM SUPERVISOR, ETELVINA L 788.41 Urinary Frequency 09/26/2011 MADL FARM SUPERVISOR, ETELVINA L 788.63 Urinary Urgency 09/26/2011 MADL FARM SUPERVISOR, ETELVINA L 788.41 Urinary Frequency 09/26/2011 MADL FARM SUPERVISOR, ETELVINA L 788.63 Urinary Urgency 09/26/2011 MADL FARM SUPERVISOR, ETELVINA L 788.41 Urinary Frequency 09/26/2011 MADL FARM SUPERVISOR, ETELVINA L 788.63 Urinary Urgency 09/26/2011 MADL FARM SUPERVISOR, ETELVINA L 788.41 Urinary Frequency 09/26/2011 MADL FARM SUPERVISOR, ETELVINA L 788.63 Urinary Urgency 09/26/2011 MADL FARM SUPERVISOR, ETELVINA L 788.41 Urinary Frequency 09/26/2011 MADL FARM SUPERVISOR, ETELVINA L 788.63 Urinary Urgency 09/26/2011 MADL FARM SUPERVISOR, ETELVINA L 788.41 Urinary Frequency 09/26/2011 MADL FARM SUPERVISOR, ETELVINA L 788.63 Urinary Urgency 09/26/2011 MADL FARM SUPERVISOR, ETELVINA L 788.41 Urinary Frequency 09/26/2011 MADL FARM SUPERVISOR, ETELVINA L 788.63 Urinary Urgency 09/26/2011 SALGUERO DO, LADONNA K 788.41 Urinary Frequency 09/26/2011 SALGUERO DO, LADONNA K 788.63 Urinary Urgency 09/26/2011 SALGUERO DO, LADONNA K 788.41 Urinary Frequency 09/26/2011 SALGUERO DO, LADONNA K 788.63 Urinary Urgency 09/26/2011 MADL FARM SUPERVISOR, ETELVINA L 788.41 Urinary Frequency 09/26/2011 MADL FARM SUPERVISOR, ETELVINA L 788.63 Urinary Urgency 09/26/2011 SALGUERO DO, LADONNA K 788.41 Urinary Frequency 09/26/2011 SALGUERO DO, LADONNA K 788.63 Urinary Urgency 09/26/2011 MADL FARM SUPERVISOR, ETELVINA L 788.41 Urinary Frequency 09/26/2011 MADL FARM SUPERVISOR, ETELVINA L 788.63 Urinary Urgency 10/18/2011 MORGAN [...] PAIN 11/11/2011 Ot 414.01 CORONARY ATHEROSCLEROSIS OF [place] CORON 11/11/2011 Ot 424.1 AORTIC VALVE DISORDER [...] LADONNA K 461.9 Sinusitis Acute 12/04/2011 MADL FARM SUPERVISOR, ETELVINA L 461.9 Sinusitis Acute 12/04/2011 MADL FARM SUPERVISOR, ETELVINA L 461.9 Sinusitis Acute 12/04/2011 MADL FARM SUPERVISOR, ETELVINA L 461.9 Sinusitis Acute 12/04/2011 SALGUERO DO, LADONNA K 461.9 Sinusitis Acute 12/04/2011 SALGUERO DO, LADONNA K 461.9 Sinusitis Acute 12/04/2011 MADL FARM SUPERVISOR, ETELVINA L 461.9 Sinusitis Acute 12/04/2011 MADL FARM SUPERVISOR, ETELVINA L 461.9 Sinusitis Acute 12/04/2011 MADL FARM SUPERVISOR, ETELVINA L 461.9 Sinusitis Acute 12/04/2011 MADL FARM SUPERVISOR, ETELVINA L 461.9 Sinusitis Acute 12/04/2011 MADL FARM SUPERVISOR, ETELVINA L 461.9 Sinusitis Acute 12/04/2011 MADL FARM SUPERVISOR, ETELVINA L 461.9 Sinusitis Acute 12/04/2011 MADL FARM SUPERVISOR, ETELVINA L 461.9 Sinusitis Acute 12/04/2011 SALGUERO DO, LADONNA K 461.9 Sinusitis Acute 12/04/2011 SALGEURO DO, LADONNA K 461.9 Sinusitis Acute 12/04/2011 MADL FARM SUPERVISOR, ETELVINA L 461.9 Sinusitis Acute 12/04/2011 SALGUERO DO, LADONNA K 461.9 Sinusitis Acute 12/04/2011 MADL FARM SUPERVISOR, ETELVINA L 461.9 Sinusitis Acute 12/19/2011 MOGRAN FARM SUPERVISOR, LAURIE S 486 PNEUMONIA UNSPECIFIED 12/19/2011 MORGAN FARM SUPERVISOR, LAURIE S 786.2 COUGH 12/19/2011 486 Pneumonia Unspecified 12/19/2011 786.2 Cough 12/19/2011 MORGAN FARM SUPERVISOR, LAURIE S 486 Pneumonia Unspecified 12/19/2011 MORGAN FARM SUPERVISOR, LAURIE S 786.2 Cough 12/19/2011 MORGAN FARM SUPERVISOR, LAURIE S 486 Pneumonia Unspecified 12/19/2011 MORGAN FARM SUPERVISOR, LAURIE S 786.2 Cough 12/19/2011 ROMELIA FISCHER [...] DO, LADONNA K 786.2 Cough 12/19/2011 MADL FARM SUPERVISOR, ETELVINA L 486 Pneumonia Unspecified 12/19/2011 MADL FARM SUPERVISOR, ETELVINA L 786.2 Cough 12/19/2011 MADL FARM SUPERVISOR, ETELVINA L 486 Pneumonia Unspecified 12/19/2011 MADL FARM SUPERVISOR, ETELVINA L 786.2 Cough 12/19/2011 MADL FARM SUPERVISOR, ETELVINA L 486 Pneumonia Unspecified 12/19/2011 MADL FARM SUPERVISOR, ETELVINA L 786.2 Cough 12/19/2011 SALGUERO DO, LADONNA K 486 Pneumonia Unspecified 12/19/2011 SALGUERO DO, LADONNA K 786.2 Cough 12/19/2011 SALGUERO DO, LADONNA K 486 Pneumonia Unspecified 12/19/2011 SALGUERO DO, LADONNA K 786.2 Cough 12/19/2011 MADL FARM SUPERVISOR, ETELVINA L 486 Pneumonia Unspecified 12/19/2011 MADL FARM SUPERVISOR, ETELVINA L 786.2 Cough 12/19/2011 MADL FARM SUPERVISOR, ETELVINA L 486 Pneumonia Unspecified 12/19/2011 MADL FARM SUPERVISOR, ETELVINA L 786.2 Cough 12/19/2011 MADL FARM SUPERVISOR, ETELVINA L 486 Pneumonia Unspecified 12/19/2011 MADL FARM SUPERVISOR, ETELVINA L 786.2 Cough 12/19/2011 MADL FARM SUPERVISOR, ETELVINA L 486 Pneumonia Unspecified 12/19/2011 MADL FARM SUPERVISOR, ETELVINA L 786.2 Cough 12/19/2011 MADL FARM SUPERVISOR, ETELVINA L 486 Pneumonia Unspecified 12/19/2011 MADL FARM SUPERVISOR, ETELVINA L 786.2 Cough 12/19/2011 MADL FARM SUPERVISOR, ETELVINA L 486 Pneumonia Unspecified 12/19/2011 MADL FARM SUPERVISOR, ETELVINA L 786.2 Cough 12/19/2011 MADL FARM SUPERVISOR, ETELVINA L 486 Pneumonia Unspecified 12/19/2011 MADL FARM SUPERVISOR, ETELVINA L 786.2 Cough 12/19/2011 SALGUERO DO, LADONNA K 486 Pneumonia Unspecified 12/19/2011 SALGUERO DO, LADONNA K 786.2 Cough 12/19/2011 SALGUERO DO, LADONNA K 486 Pneumonia Unspecified 12/19/2011 SALGUERO DO, LADONNA K 786.2 Cough 12/19/2011 MADL FARM SUPERVISOR, ETELVINA L 486 Pneumonia Unspecified 12/19/2011 MADL FARM SUPERVISOR, ETELVINA L 786.2 Cough 12/19/2011 SALGUERO DO, LADONNA K 486 Pneumonia Unspecified 12/19/2011 SALGUERO DO, LADONNA K 786.2 Cough 12/19/2011 MADL FARM SUPERVISOR, ETELVINA L 486 Pneumonia Unspecified 12/19/2011 MADL FARM SUPERVISOR, ETELVINA L 786.2 Cough 01/06/2012 MORGAN HARRIS LAURIE S 491.9 BRONCHITIS, CHRONIC UNSPEC 01/06/2012 PALOMA MORA APRNNDA S 780.79 MALAISE AND FATIGUE 01/06/2012 491.9 Bronchitis, Chronic Unspec 01/06/2012 780.79 Malaise And Fatigue 01/06/2012 MORGAN FARM SUPERVISOR, LAURIE S 491.9 Bronchitis, Chronic Unspec 01/06/2012 MORGAN FARM SUPERVISOR, LAURIE S 780.79 Malaise And Fatigue 01/06/2012 MORGAN FARM SUPERVISOR, LAURIE S 491.9 Bronchitis, Chronic Unspec 01/06/2012 MORGAN FARM SUPERVISOR, LAURIE S 780.79 Malaise And Fatigue 01/06/2012 [...] K 780.79 Malaise And Fatigue 01/06/2012 MADL FARM SUPERVISOR, ETELVINA L 491.9 Bronchitis, Chronic Unspec 01/06/2012 MADL FARM SUPERVISOR, ETELVINA L 780.79 Malaise And Fatigue 01/06/2012 MADL FARM SUPERVISOR, ETELVINA L 491.9 Bronchitis, Chronic Unspec 01/06/2012 MADL FARM SUPERVISOR, ETELVINA L 780.79 Malaise And Fatigue 01/06/2012 MADL FARM SUPERVISOR, ETELVINA L 491.9 Bronchitis, Chronic Unspec 01/06/2012 MADL FARM SUPERVISOR, ETELVINA L 780.79 Malaise And Fatigue 01/06/2012 SALGUERO DO, LADONNA K 491.9 Bronchitis, Chronic Unspec 01/06/2012 SALGUERO DO, LADONNA K 780.79 Malaise And Fatigue 01/06/2012 SALGUERO DO, LADONNA K 491.9 Bronchitis, Chronic Unspec 01/06/2012 SALGUERO DO, LADONNA K 780.79 Malaise And Fatigue 01/06/2012 MADL FARM SUPERVISOR, ETELVINA L 491.9 Bronchitis, Chronic Unspec 01/06/2012 MADL FARM SUPERVISOR, ETELVINA L 780.79 Malaise And Fatigue 01/06/2012 MADL FARM SUPERVISOR, ETELVINA L 491.9 Bronchitis, Chronic Unspec 01/06/2012 MADL FARM SUPERVISOR, ETELVINA L 780.79 Malaise And Fatigue 01/06/2012 MADL FARM SUPERVISOR, ETELVINA L 491.9 Bronchitis, Chronic Unspec 01/06/2012 MADL FARM SUPERVISOR, ETELVINA L 780.79 Malaise And Fatigue 01/06/2012 MADL FARM SUPERVISOR, ETELVINA L 491.9 Bronchitis, Chronic Unspec 01/06/2012 MADL FARM SUPERVISOR, ETELVINA L 780.79 Malaise And Fatigue 01/06/2012 MADL FARM SUPERVISOR, ETELVINA L 491.9 Bronchitis, Chronic Unspec 01/06/2012 MADL FARM SUPERVISOR, ETELVINA L 780.79 Malaise And Fatigue 01/06/2012 MADL FARM SUPERVISOR, ETELVINA L 491.9 Bronchitis, Chronic Unspec 01/06/2012 MADL FARM SUPERVISOR, ETELVINA L 780.79 Malaise And Fatigue 01/06/2012 MADL FARM SUPERVISOR, ETELVINA L 491.9 Bronchitis, Chronic Unspec 01/06/2012 MADL FARM SUPERVISOR, ETELVINA L 780.79 Malaise And Fatigue 01/06/2012 SALGUERO DO, LADONNA K 491.9 Bronchitis, Chronic Unspec 01/06/2012 SALGUERO DO, LADONNA K 780.79 Malaise And Fatigue 01/06/2012 SALGUERO DO, LADONNA K 491.9 Bronchitis, Chronic Unspec 01/06/2012 SALGUERO DO, LADONNA K 780.79 Malaise And Fatigue 01/06/2012 MADL FARM SUPERVISORETELVINA Bowser L 491.9 Bronchitis, Chronic Unspec 01/06/2012 MADL FARM SUPERVISOR ETELVINA L 780.79 Malaise And Fatigue 01/06/2012 SALGUERO DO, LADONNA K 491.9 Bronchitis, Chronic Unspec 01/06/2012 SALGUERO DO, LADONNA K 780.79 Malaise And Fatigue 01/06/2012 MADL FARM SUPERVISOR, ETELVINA L 491.9 Bronchitis, Chronic Unspec 01/06/2012 HUGOL FARM SUPERVISOR ETELVINA L 780.79 Malaise And Fatigue 01/30/2012 [...] NOS 01/30/2012 Ot 414.01 CORONARY ATHEROSCLEROSIS OF [place] CORON 01/30/2012 Ot 424.1 AORTIC VALVE DISORDER [...] DISORDER 02/02/2012 Ot 414.01 CORONARY ATHEROSCLEROSIS OF [place] CORON 02/02/2012 Ot 458.9 HYPOTENSION NOS 02/02/2012 [...] Angioneurotic Edema Not Elsewhere Classified 02/04/2012 MADL FARM SUPERVISOR, ETELVINA L 728.88 Rhabdomyolysis 02/04/2012 MADL FARM SUPERVISOR, ETELVINA L 995.1 Angioneurotic Edema Not Elsewhere Classified 02/04/2012 MADL FARM SUPERVISOR, ETELVINA L 728.88 Rhabdomyolysis 02/04/2012 MADL FARM SUPERVISOR, ETELVINA L 995.1 Angioneurotic Edema Not Elsewhere Classified 02/04/2012 MADL FARM SUPERVISOR, ETELVINA L 728.88 Rhabdomyolysis 02/04/2012 MADL FARM SUPERVISOR, ETELVINA L 995.1 Angioneurotic Edema Not Elsewhere Classified 02/04/2012 SALGUERO DO, LADONNA K 728.88 Rhabdomyolysis 02/04/2012 SALGUERO DO, LADONNA K 995.1 Angioneurotic Edema Not Elsewhere Classified 02/04/2012 SALGUERO DO, LADONNA K 728.88 Rhabdomyolysis 02/04/2012 SALGUERO DO, LADONNA K 995.1 Angioneurotic Edema Not Elsewhere Classified 02/04/2012 MADL FARM SUPERVISOR, ETELVINA L 728.88 Rhabdomyolysis 02/04/2012 MADL FARM SUPERVISOR, ETELVINA L 995.1 Angioneurotic Edema Not Elsewhere Classified 02/04/2012 MADL FARM SUPERVISOR, ETELVINA L 728.88 Rhabdomyolysis 02/04/2012 MADL FARM SUPERVISOR, ETELVINA L 995.1 Angioneurotic Edema Not Elsewhere Classified 02/04/2012 MADL FARM SUPERVISOR, ETELVINA L 728.88 Rhabdomyolysis 02/04/2012 MADL FARM SUPERVISOR, ETELVINA L 995.1 Angioneurotic Edema Not Elsewhere Classified 02/04/2012 MADL FARM SUPERVISOR, ETELVINA L 728.88 Rhabdomyolysis 02/04/2012 MADL FARM SUPERVISOR, ETELVINA L 995.1 Angioneurotic Edema Not Elsewhere Classified 02/04/2012 MADL FARM SUPERVISOR, ETELVINA L 728.88 Rhabdomyolysis 02/04/2012 MADL FARM SUPERVISOR, ETELVINA L 995.1 Angioneurotic Edema Not Elsewhere Classified 02/04/2012 MADL FARM SUPERVISOR, ETELVINA L 728.88 Rhabdomyolysis 02/04/2012 MADL FARM SUPERVISOR, ETELVINA L 995.1 Angioneurotic Edema Not Elsewhere Classified 02/04/2012 MADL FARM SUPERVISOR, ETELVINA L 728.88 Rhabdomyolysis 02/04/2012 MADL FARM SUPERVISOR, ETELVINA L 995.1 Angioneurotic Edema Not Elsewhere Classified 02/04/2012 SALGUERO DO, LADONNA K 728.88 Rhabdomyolysis 02/04/2012 SALGUERO DO, LADONNA K 995.1 Angioneurotic Edema Not Elsewhere Classified 02/04/2012 SALGUERO DO, LADONNA K 728.88 Rhabdomyolysis 02/04/2012 SALGUERO DO, LADONNA K 995.1 Angioneurotic Edema Not Elsewhere Classified 02/04/2012 MADL FARM SUPERVISOR, ETELVINA L 728.88 Rhabdomyolysis 02/04/2012 MADL FARM SUPERVISOR, ETELVINA L 995.1 Angioneurotic Edema Not Elsewhere Classified 02/04/2012 SALGUERO DO, LADONNA K 728.88 Rhabdomyolysis 02/04/2012 SALGUERO DO, LADONNA K 995.1 Angioneurotic Edema Not Elsewhere Classified 02/04/2012 MADL FARM SUPERVISOR, ETELVINA L 728.88 Rhabdomyolysis 02/04/2012 MADL FARM SUPERVISOR, ETELVINA L 995.1 Angioneurotic Edema Not Elsewhere [...] DO, LADONNA K 782.3 EDEMA 02/06/2012 MADL FARM SUPERVISOR, ETELVINA L 782.3 EDEMA 02/06/2012 MADL FARM SUPERVISOR, ETELVINA L 782.3 EDEMA 02/06/2012 MADL FARM SUPERVISOR, ETELVINA L 782.3 EDEMA 02/06/2012 SALGUERO DO, LADONNA K 782.3 EDEMA 02/06/2012 SALGUERO DO, LADONNA K 782.3 EDEMA 02/06/2012 MADL FARM SUPERVISOR, ETELVINA L 782.3 EDEMA 02/06/2012 MADL FARM SUPERVISOR, ETELVINA L 782.3 EDEMA 02/06/2012 MADL FARM SUPERVISOR, ETELVINA L 782.3 EDEMA 02/06/2012 MADL FARM SUPERVISOR, ETELVINA L 782.3 EDEMA 02/06/2012 MADL FARM SUPERVISOR, ETELVINA L 782.3 EDEMA 02/06/2012 MADL FARM SUPERVISOR, ETELVINA L 782.3 EDEMA 02/06/2012 MADL FARM SUPERVISOR, ETELVINA L 782.3 EDEMA 02/06/2012 SALGUERO DO, LADONNA K 782.3 EDEMA 02/06/2012 SALGUERO DO, LADONNA K 782.3 EDEMA 02/06/2012 MADL FARM SUPERVISOR, ETELVINA L 782.3 EDEMA 02/06/2012 SALGUERO DO, LADONNA K 782.3 EDEMA 02/06/2012 MADL FARM SUPERVISOR, ETELVINA L 782.3 EDEMA 02/11/2012 [employer]GAN FARM SUPERVISOR, LAURIE S 079.99 VIRAL SYNDROME 02/11/2012 079.99 Viral Syndrome 02/11/2012 M[employer]GAN FARM SUPERVISOR, LAURIE S 079.99 Viral Syndrome 02/11/2012 MORGAN FARM SUPERVISOR, LAURIE S 079.99 Viral Syndrome 02/11/2012 ROMELIA [...] DOA K 079.99 Viral Syndrome 02/11/2012 MADL FARM SUPERVISOR, ETELVINA L 079.99 Viral Syndrome 02/11/2012 MADL FARM SUPERVISOR, ETELVINA L 079.99 Viral Syndrome 02/11/2012 MADL FARM SUPERVISOR, ETELVINA L 079.99 Viral Syndrome 02/11/2012 NOEMY PRAKASH LADONNA K 079.99 Viral Syndrome 02/11/2012 SALGUERO DO LADONNA K 079.99 Viral Syndrome 02/11/2012 MADL FARM SUPERVISOR, ETELVINA L 079.99 Viral Syndrome 02/11/2012 MADL FARM SUPERVISOR, ETELVINA L 079.99 Viral Syndrome 02/11/2012 MADL FARM SUPERVISOR, ETELVINA L 079.99 Viral Syndrome 02/11/2012 MADL FARM SUPERVISOR, ETELVINA L 079.99 Viral Syndrome 02/11/2012 MADL FARM SUPERVISOR, ETELVINA L 079.99 Viral Syndrome 02/11/2012 MADL FARM SUPERVISOR, ETELVINA L 079.99 Viral Syndrome 02/11/2012 MADL FARM SUPERVISOR, ETELVINA L 079.99 Viral Syndrome 02/11/2012 SALGUERO DO, LADONNA K 079.99 Viral Syndrome 02/11/2012 SALGUERO DO, LADONNA K 079.99 Viral Syndrome 02/11/2012 MADL FARM SUPERVISOR, ETELVINA L 079.99 Viral Syndrome 02/11/2012 SALGUERO DO, LADONNA K 079.99 Viral Syndrome 02/11/2012 MADL FARM SUPERVISOR, ETELVINA L 079.99 Viral Syndrome 02/17/2012 SUSHANT [...] LADONNA K 783.21 Weight Loss 02/17/2012 MADL FARM SUPERVISOR, ETELVINA L 783.21 Weight Loss 02/17/2012 MADL FARM SUPERVISOR, ETELVINA L 783.21 Weight Loss 02/17/2012 MADL FARM SUPERVISOR, ETELVINA L 783.21 Weight Loss 02/17/2012 SALGUERO DO, LADONNA K 783.21 Weight Loss 02/17/2012 SALGUERO DO, LADONNA K 783.21 Weight Loss 02/17/2012 MADL FARM SUPERVISOR, ETELVINA L 783.21 Weight Loss 02/17/2012 MADL FARM SUPERVISOR, ETELVINA L 783.21 Weight Loss 02/17/2012 MADL FARM SUPERVISOR, ETELVINA L 783.21 Weight Loss 02/17/2012 MADL FARM SUPERVISOR, ETELVINA L 783.21 Weight Loss 02/17/2012 MADL FARM SUPERVISOR, ETELVINA L 783.21 Weight Loss 02/17/2012 MADL FARM SUPERVISOR, ETELVINA L 783.21 Weight Loss 02/17/2012 MADL FARM SUPERVISOR, ETELVINA L 783.21 Weight Loss 02/17/2012 SALGUERO DO, LADONNA K 783.21 Weight Loss 02/17/2012 SALGUERO DO, LADONNA K 783.21 Weight Loss 02/17/2012 MADL FARM SUPERVISOR, ETELVINA L 783.21 Weight Loss 02/17/2012 SALGUERO DO, LADONNA K 783.21 Weight Loss 02/17/2012 MADL FARM SUPERVISOR, ETELVINA L 783.21 Weight Loss 02/24/2012 MORGAN [...] DO, LADONNA K 787.91 Diarrhea 02/24/2012 MADL FARM SUPERVISOR, ETELVINA L 787.91 Diarrhea 02/24/2012 MADL FARM SUPERVISOR, ETELVINA L 787.91 Diarrhea 02/24/2012 MADL FARM SUPERVISOR, ETELVINA L 787.91 Diarrhea 02/24/2012 SALGUERO DO, LADONNA K 787.91 Diarrhea 02/24/2012 SALGUERO DO, LADONNA K 787.91 Diarrhea 02/24/2012 MADL FARM SUPERVISOR, ETELVINA L 787.91 Diarrhea 02/24/2012 MADL FARM SUPERVISOR, ETELVINA L 787.91 Diarrhea 02/24/2012 MADL FARM SUPERVISOR, ETELVINA L 787.91 Diarrhea 02/24/2012 MADL FARM SUPERVISOR, ETELVINA L 787.91 Diarrhea 02/24/2012 MADL FARM SUPERVISOR, ETELVINA L 787.91 Diarrhea 02/24/2012 MADL FARM SUPERVISOR, ETELVINA L 787.91 Diarrhea 02/24/2012 MADL FARM SUPERVISOR, ETELVINA L 787.91 Diarrhea 02/24/2012 SALGUERO DO, LADONNA K 787.91 Diarrhea 02/24/2012 SALGUERO DO, LADONNA K 787.91 Diarrhea 02/24/2012 MADL FARM SUPERVISOR, EETLVINA L 787.91 Diarrhea 02/24/2012 SALGUERO DO, LADONNA K 787.91 Diarrhea 02/24/2012 MADL FARM SUPERVISOR, ETELVINA L 787.91 Diarrhea 04/07/2012 MORGAN FARM SUPERVISORLAURIE S 787.20 DYSPHAGIA, UNSPECIFIED 04/07/2012 787.20 Dysphagia, Unspecified 04/07/2012 MORGAN FARM SUPERVISORLAURIE S 787.20 Dysphagia, Unspecified 04/07/2012 MORGAN FARM SUPERVISORLAURIE S 787.20 Dysphagia, Unspecified 04/07/2012 AMADO OLVERA, [...] BOSS MD 787.20 Dysphagia, Unspecified 04/07/2012 BYRON OBSS MD 787.20 Dysphagia, Unspecified 04/07/2012 SALGUERO DO, LADONNA K 787.20 Dysphagia, Unspecified 04/07/2012 SALGUERO DO, LADONNA K 787.20 Dysphagia, Unspecified 04/07/2012 SALGUERO DO, LADONNA K 787.20 Dysphagia, Unspecified 04/07/2012 SALGUERO DO, LADONNA K 787.20 Dysphagia, Unspecified 04/07/2012 MADL FARM SUPERVISOR, ETELVINA L 787.20 Dysphagia, Unspecified 04/07/2012 MADL FARM SUPERVISOR, ETELVINA L 787.20 Dysphagia, Unspecified 04/07/2012 MADL FARM SUPERVISOR, ETELVINA L 787.20 Dysphagia, Unspecified 04/07/2012 SALGUERO DO, LADONNA K 787.20 Dysphagia, Unspecified 04/07/2012 SALGUERO DO, LADONNA K 787.20 Dysphagia, Unspecified 04/07/2012 MADL FARM SUPERVISOR, ETELVINA L 787.20 Dysphagia, Unspecified 04/07/2012 MADL FARM SUPERVISOR, ETELVNIA L 787.20 Dysphagia, Unspecified 04/07/2012 MADL FARM SUPERVISOR, ETELVINA L 787.20 Dysphagia, Unspecified 04/07/2012 MADL FARM SUPERVISOR, ETELVINA L 787.20 Dysphagia, Unspecified 04/07/2012 MADL FARM SUPERVISOR, ETELVINA L 787.20 Dysphagia, Unspecified 04/07/2012 MADL FARM SUPERVISOR, ETELVINA L 787.20 Dysphagia, Unspecified 04/07/2012 MADL FARM SUPERVISOR, ETELVINA L 787.20 Dysphagia, Unspecified 04/07/2012 SALGUERO DO, LADONNA K 787.20 Dysphagia, Unspecified 04/07/2012 SALGUERO DO, LADONNA K 787.20 Dysphagia, Unspecified 04/07/2012 MADL FARM SUPERVISOR, ETELVINA L 787.20 Dysphagia, Unspecified 04/07/2012 SALGUERO DO, LADONNA K 787.20 Dysphagia, Unspecified 04/07/2012 MADL FARM SUPERVISOR, ETELVINA L 787.20 Dysphagia, Unspecified 04/16/2012 Ot [...] Cervical Cancer Screening (pap Smear) 09/07/2012 MADMaxine FARM SUPERVISOR, ETELVINA L V03.82 Ppv23 (pneumovax) Dx 09/07/2012 MADMaxine FARM SUPERVISOR, ETELVINA L V76.10 Breast Cancer Screening 09/07/2012 MADL FARM SUPERVISOR, ETELVINA L V76.12 Mammogram Screening 09/07/2012 MADMaxine FARM SUPERVISOR, ETELVINA L V76.2 Cervical Cancer Screening (pap Smear) 09/07/2012 MADMaxine FARM SUPERVISOR, ETELVINA L V03.82 Ppv23 (pneumovax) Dx 09/07/2012 MADMaxine FARM SUPERVISOR, ETELVINA L V76.10 Breast Cancer Screening 09/07/2012 MADL FARM SUPERVISOR, ETELVINA L V76.12 Mammogram Screening 09/07/2012 MADL FARM SUPERVISOR, ETELVINA L V76.2 Cervical Cancer Screening (pap Smear) 09/07/2012 MADL FARM SUPERVISOR, ETELVINA L V03.82 Ppv23 (pneumovax) Dx 09/07/2012 MADL FARM SUPERVISOR, ETELVINA L V76.10 Breast Cancer Screening 09/07/2012 MADL FARM SUPERVISOR, ETELVINA L V76.12 Mammogram Screening 09/07/2012 MADL FARM SUPERVISOR, ETELVINA L V76.2 Cervical Cancer Screening (pap [...] Cervical Cancer Screening (pap Smear) 09/07/2012 MADL FARM SUPERVISOR, ETELVINA L V03.82 Ppv23 (pneumovax) Dx 09/07/2012 MADL FARM SUPERVISOR, ETELVINA L V76.10 Breast Cancer Screening 09/07/2012 MADL FARM SUPERVISOR, ETELVINA L V76.12 Mammogram Screening 09/07/2012 MADL FARM SUPERVISOR, ETELVINA L V76.2 Cervical Cancer Screening (pap Smear) 09/07/2012 MADL FARM SUPERVISOR, ETELVINA L V03.82 Ppv23 (pneumovax) Dx 09/07/2012 MADL FARM SUPERVISOR, ETELVINA L V76.10 Breast Cancer Screening 09/07/2012 MADL FARM SUPERVISOR, ETELVINA L V76.12 Mammogram Screening 09/07/2012 MADL FARM SUPERVISOR, ETELVINA L V76.2 Cervical Cancer Screening (pap Smear) 09/07/2012 MADL FARM SUPERVISOR, ETELVINA L V03.82 Ppv23 (pneumovax) Dx 09/07/2012 MAD FARM SUPERVISOR, ETELVINA L V76.10 Breast Cancer Screening 09/07/2012 MAD FARM SUPERVISOR, ETELVINA L V76.12 Mammogram Screening 09/07/2012 MAD FARM SUPERVISOR, ETELVINA L V76.2 Cervical Cancer Screening (pap Smear) 09/07/2012 MAD FARM SUPERVISOR, ETELVINA L V03.82 Ppv23 (pneumovax) Dx 09/07/2012 MAD FARM SUPERVISOR, ETELVINA L V76.10 Breast Cancer Screening 09/07/2012 [facility] FARM SUPERVISOR, ETELVINA L V76.12 Mammogram Screening 09/07/2012 [facility] FARM SUPERVISOR, ETELVINA L V76.2 Cervical Cancer Screening (pap Smear) 09/07/2012 MAD FARM SUPERVISOR, ETELVINA L V03.82 Ppv23 (pneumovax) Dx 09/07/2012 [facility] FARM SUPERVISOR, ETELVINA L V76.10 Breast Cancer Screening 09/07/2012 [facility] FARM SUPERVISOR, ETELVINA L V76.12 Mammogram Screening 09/07/2012 [facility] FARM SUPERVISOR, ETELVINA L V76.2 Cervical Cancer Screening (pap Smear) 09/07/2012 MAD FARM SUPERVISOR, ETELVINA L V03.82 Ppv23 (pneumovax) Dx 09/07/2012 MAD FARM SUPERVISOR, ETELVINA L V76.10 Breast Cancer Screening 09/07/2012 [facility] FARM SUPERVISOR, ETELVINA L V76.12 Mammogram Screening 09/07/2012 [facility] FARM SUPERVISOR, ETELVINA L V76.2 Cervical Cancer Screening (pap Smear) 09/07/2012 MAD FARM SUPERVISOR, ETELVINA L V03.82 Ppv23 (pneumovax) Dx 09/07/2012 MAD FARM SUPERVISOR, ETELVINA L V76.10 Breast Cancer Screening 09/07/2012 MAD FARM SUPERVISOR, ETELVINA L V76.12 Mammogram Screening 09/07/2012 MAD FARM SUPERVISOR, ETELVINA L V76.2 Cervical Cancer Screening (pap [...] Cervical Cancer Screening (pap Smear) 09/07/2012 MADL FARM SUPERVISORHAMMADA L V03.82 Ppv23 (pneumovax) Dx 09/07/2012 MADL FARM SUPERVISOR, ETELVINA L V76.10 Breast Cancer Screening 09/07/2012 MADL FARM SUPERVISOR, ETELVINA L V76.12 Mammogram Screening 09/07/2012 MADL FARM SUPERVISORHAMMAD BowserA L V76.2 Cervical Cancer Screening (pap Smear) 09/07/2012 NOEMY PRAKASH LADONNA K V03.82 Ppv23 (pneumovax) Dx 09/07/2012 TERE SALGUERO DOA K V76.10 Breast Cancer Screening 09/07/2012 TERE SALGUERO DOA K V76.12 Mammogram Screening 09/07/2012 TERE SALGUERO DOA K V76.2 Cervical Cancer Screening (pap Smear) 09/07/2012 MADL FARM SUPERVISOR, ETELVINA L V03.82 Ppv23 (pneumovax) Dx 09/07/2012 MADL FARM SUPERVISOR, ETELVINA L V76.10 Breast Cancer Screening 09/07/2012 MADL FARM SUPERVISOR, ETELVINA L V76.12 Mammogram Screening 09/07/2012 MADL FARM SUPERVISOR, ETELVINA L V76.2 Cervical Cancer Screening (pap Smear) 09/08/2012 Ot 305.1 TOBACCO USE DISORDER 09/08/2012 Ot 466.0 ACUTE BRONCHITIS 09/08/2012 Ot 786.2 COUGH 09/19/2012 Ot 305.1 TOBACCO USE DISORDER 09/19/2012 Ot 491.9 CHRONIC BRONCHITIS NOS 09/19/2012 Ot 780.79 OTH MALAISE FATIGUE 10/22/2012 MORGAN FARM SUPERVISOR, LAURIE S V58.69 high risk medication 10/22/2012 [...] high-risk medication for a long time 10/22/2012 SAGLUERO DO LADONNA K V58.69 taking high-risk medication for a long time 10/22/2012 SALGUERO DO LADONNA K V58.69 taking high-risk medication for a long time 10/22/2012 SALGUERO DO LADONNA K V58.69 taking high-risk medication for a long time 10/22/2012 ETELVINA LEONARD APRN V58.69 taking high-risk medication for a long time 10/22/2012 MADL FARM SUPERVISOR, ETELVINA L V58.69 taking high-risk medication for a long time 10/22/2012 MADL FARM SUPERVISORHAMMADA L V58.69 taking high-risk medication for a long time 10/22/2012 LADONNA SALGUERO DO K V58.69 taking high-risk medication for a long time 10/22/2012 LADONNA SALGUERO DO K V58.69 taking high-risk medication for a long time 10/22/2012 MADL FARM SUPERVISORETELVINA L V58.69 taking high-risk medication for a long time 10/22/2012 MADL FARM SUPERVISOR ETELVINA L V58.69 taking high-risk medication for a long time 10/22/2012 MADL FARM SUPERVISORHAMMADA L V58.69 taking high-risk medication for a long time 10/22/2012 MADL FARM SUPERVISORHAMMADA L V58.69 taking high-risk medication for a long time 10/22/2012 MADL FARM SUPERVISORHAMMAD BowserA L V58.69 taking high-risk medication for a long time 10/22/2012 MADL FARM SUPERVISORHAMMADA L V58.69 taking high-risk medication for a long time 10/22/2012 MADL FARM SUPERVISOR ETELVINA L V58.69 taking high-risk medication for a long time 10/22/2012 LADONNA SALGUERO DO K V58.69 taking high-risk medication for a long time 10/22/2012 LADONNA SALGUERO DO K V58.69 taking high-risk medication for a long time 10/22/2012 MADL FARM SUPERVISORETELVINA Bowser L V58.69 taking high-risk medication for a long time 10/22/2012 LADONNA SALGUERO DO K V58.69 taking high-risk medication for a long time 10/22/2012 MADL FARM SUPERVISORHAMMAD BowserA L V58.69 taking high-risk medication for a long time 10/26/2012 Ot 250.00 DIAB MELVA WO COMPL, TYPE II OR UNSPEC TY 10/26/2012 Ot 278.00 OBESITY, NOS 10/26/2012 Ot 300.00 ANXIETY STATE NOS 10/26/2012 Ot 305.1 TOBACCO USE DISORDER 10/26/2012 Ot 311 DEPRESSIVE DISORDER NEC 10/26/2012 Ot 401.9 HYPERTENSION NOS 10/26/2012 Ot 414.01 CORONARY ATHEROSCLEROSIS OF [place] CORON 10/26/2012 Ot 491.21 OBSTR CHRONIC BRONCHITIS, [...] K 465.9 UPPER RESPIRATORY INFECTION 11/01/2012 MADL FARM SUPERVISOR, ETELVINA L 465.9 UPPER RESPIRATORY INFECTION 11/01/2012 MADL FARM SUPERVISOR, ETELVINA L 465.9 UPPER RESPIRATORY INFECTION 11/01/2012 MADL FARM SUPERVISOR, ETELVINA L 465.9 UPPER RESPIRATORY INFECTION 11/01/2012 SALGUERO DO, LADONNA K 465.9 UPPER RESPIRATORY INFECTION 11/01/2012 SALGUERO DO, LADONNA K 465.9 UPPER RESPIRATORY INFECTION 11/01/2012 MADL FARM SUPERVISOR, ETELVINA L 465.9 UPPER RESPIRATORY INFECTION 11/01/2012 MADL FARM SUPERVISOR, ETELVINA L 465.9 UPPER RESPIRATORY INFECTION 11/01/2012 MADL FARM SUPERVISOR, ETELVINA L 465.9 UPPER RESPIRATORY INFECTION 11/01/2012 MADL FARM SUPERVISOR, ETELVINA L 465.9 UPPER RESPIRATORY INFECTION 11/01/2012 MADL FARM SUPERVISOR, ETELVINA L 465.9 UPPER RESPIRATORY INFECTION 11/01/2012 MADL FARM SUPERVISOR, ETELVINA L 465.9 UPPER RESPIRATORY INFECTION 11/01/2012 MADL FARM SUPERVISOR, ETELVINA L 465.9 UPPER RESPIRATORY INFECTION 11/01/2012 SALGUERO DO, LADONNA K 465.9 UPPER RESPIRATORY INFECTION 11/01/2012 SALGUERO DO, LADONNA K 465.9 UPPER RESPIRATORY INFECTION 11/01/2012 MADL FARM SUPERVISOR, ETELVINA L 465.9 UPPER RESPIRATORY INFECTION 11/01/2012 SALGUERO DO, LADONNA K 465.9 UPPER RESPIRATORY INFECTION 11/01/2012 MADL FARM SUPERVISOR, ETELVINA L 465.9 UPPER RESPIRATORY INFECTION 11/13/2012 Ot 250.00 DIAB MELVA WO COMPL, TYPE II OR UNSPEC TY 11/13/2012 Ot 272.4 HYPERLIPIDEMIA NEC/NOS 11/13/2012 Ot 278.00 OBESITY, NOS 11/13/2012 Ot 300.00 ANXIETY STATE NOS 11/13/2012 Ot 305.1 TOBACCO USE DISORDER 11/13/2012 Ot 311 DEPRESSIVE DISORDER NEC 11/13/2012 Ot 401.9 HYPERTENSION NOS 11/13/2012 Ot 414.01 CORONARY ATHEROSCLEROSIS OF [place] CORON 11/13/2012 Ot 458.9 HYPOTENSION NOS 11/13/2012 [...] DO, LADONNA K 244.9 HYPOTHYROIDISM 12/02/2012 MADL FARM SUPERVISOR, ETELVINA L 244.9 HYPOTHYROIDISM 12/02/2012 MADL FARM SUPERVISOR, ETELVINA L 244.9 HYPOTHYROIDISM 12/02/2012 MADL FARM SUPERVISOR, ETELVINA L 244.9 HYPOTHYROIDISM 12/02/2012 SALGUERO DO, LADONNA K 244.9 HYPOTHYROIDISM 12/02/2012 SALGUERO DO, LADONNA K 244.9 HYPOTHYROIDISM 12/02/2012 MADL FARM SUPERVISOR, ETELVINA L 244.9 HYPOTHYROIDISM 12/02/2012 MADL FARM SUPERVISOR, ETELVINA L 244.9 HYPOTHYROIDISM 12/02/2012 MADL FARM SUPERVISOR, ETELVINA L 244.9 HYPOTHYROIDISM 12/02/2012 MADL FARM SUPERVISOR, ETELVINA L 244.9 HYPOTHYROIDISM 12/02/2012 MADL FARM SUPERVISOR, ETELVINA L 244.9 HYPOTHYROIDISM 12/02/2012 MADL FARM SUPERVISOR, ETELVINA L 244.9 HYPOTHYROIDISM 12/02/2012 MADL FARM SUPERVISOR, ETELVINA L 244.9 HYPOTHYROIDISM 12/02/2012 SALGUERO DO, LADONNA K 244.9 HYPOTHYROIDISM 12/02/2012 SALGUERO DO, LADONNA K 244.9 HYPOTHYROIDISM 12/02/2012 MADL FARM SUPERVISOR, ETELVINA L 244.9 HYPOTHYROIDISM 12/02/2012 SALGUERO DO, LADONNA K 244.9 HYPOTHYROIDISM 12/02/2012 MADL FARM SUPERVISOR, ETELVINA L 244.9 HYPOTHYROIDISM 12/26/2012 Ot 305.1 [...] DO LADONNA K 780.52 insomnia 02/08/2013 MADL FARM SUPERVISOR, ETELVINA L 780.52 insomnia 02/08/2013 MADL FARM SUPERVISOR, ETELVINA L 780.52 insomnia 02/08/2013 MADL FARM SUPERVISOR, ETELVINA L 780.52 insomnia 02/08/2013 SALGUERO DO LADONNA K 780.52 insomnia 02/08/2013 SALGUERO DO, LADONNA K 780.52 insomnia 02/08/2013 MADL FARM SUPERVISOR, ETELVINA L 780.52 insomnia 02/08/2013 MADL FARM SUPERVISOR, ETELVINA L 780.52 insomnia 02/08/2013 MADL FARM SUPERVISOR, ETELVINA L 780.52 insomnia 02/08/2013 MADL FARM SUPERVISOR, ETELVINA L 780.52 insomnia 02/08/2013 MADL FARM SUPERVISOR, ETELVINA L 780.52 insomnia 02/08/2013 MADL FARM SUPERVISOR, ETELVINA L 780.52 insomnia 02/08/2013 MADL FARM SUPERVISOR, ETELVINA L 780.52 insomnia 02/08/2013 SALGUERO DO LADONNA K 780.52 insomnia 02/08/2013 SALGUERO DO LADONNA K 780.52 insomnia 02/08/2013 MADL FARM SUPERVISOR, ETELVINA L 780.52 insomnia 02/08/2013 SALGUERO DO, LADONNA K 780.52 insomnia 02/08/2013 MADL FARM SUPERVISOR, ETELVINA L 780.52 insomnia 04/17/2013 REHAN OLVERA, [...] LADONNA K 719.07 EDEMA FOOT 06/03/2013 MADL FARM SUPERVISOR, ETELVINA L 110.1 ONYCHOMYCOSIS 06/03/2013 MADL FARM SUPERVISOR, ETELVINA L 719.07 EDEMA FOOT 06/03/2013 MADL FARM SUPERVISOR, ETELVINA L 110.1 ONYCHOMYCOSIS 06/03/2013 MADL FARM SUPERVISOR, ETELVINA L 719.07 EDEMA FOOT 06/03/2013 MADL FARM SUPERVISOR, ETELVINA L 110.1 ONYCHOMYCOSIS 06/03/2013 MADL FARM SUPERVISOR, ETELVINA L 719.07 EDEMA FOOT 06/03/2013 SALGUERO DO, LADONNA K 110.1 ONYCHOMYCOSIS 06/03/2013 SALGUERO DO, LADONNA K 719.07 EDEMA FOOT 06/03/2013 SALGUERO DO, LADONNA K 110.1 ONYCHOMYCOSIS 06/03/2013 SALGUERO DO, LADONNA K 719.07 EDEMA FOOT 06/03/2013 MADL FARM SUPERVISOR, ETELVINA L 110.1 ONYCHOMYCOSIS 06/03/2013 MADL FARM SUPERVISOR, ETELVINA L 719.07 EDEMA FOOT 06/03/2013 MADL FARM SUPERVISOR, ETELVINA L 110.1 ONYCHOMYCOSIS 06/03/2013 MADL FARM SUPERVISOR, ETELVINA L 719.07 EDEMA FOOT 06/03/2013 MADL FARM SUPERVISOR, ETELVINA L 110.1 ONYCHOMYCOSIS 06/03/2013 MADL FARM SUPERVISOR, ETELVINA L 719.07 EDEMA FOOT 06/03/2013 MADL FARM SUPERVISOR, ETELVINA L 110.1 ONYCHOMYCOSIS 06/03/2013 MADL FARM SUPERVISOR, ETELVINA L 719.07 EDEMA FOOT 06/03/2013 MADL FARM SUPERVISOR, ETELVINA L 110.1 ONYCHOMYCOSIS 06/03/2013 MADL FARM SUPERVISOR, ETELVINA L 719.07 EDEMA FOOT 06/03/2013 MADL FARM SUPERVISOR, ETELVINA L 110.1 ONYCHOMYCOSIS 06/03/2013 MADL FARM SUPERVISOR, ETELVINA L 719.07 EDEMA FOOT 06/03/2013 MADL FARM SUPERVISOR, ETELVINA L 110.1 ONYCHOMYCOSIS 06/03/2013 MADL FARM SUPERVISOR, ETELVINA L 719.07 EDEMA FOOT 06/03/2013 SALGUREO DO, LADONNA K 110.1 ONYCHOMYCOSIS 06/03/2013 SALGUERO DO, LADONNA K 719.07 EDEMA FOOT 06/03/2013 SALGUERO DO, LADONNA K 110.1 ONYCHOMYCOSIS 06/03/2013 SALGUERO DO, LADONNA K 719.07 EDEMA FOOT 06/03/2013 MADL FARM SUPERVISOR, ETELVINA L 110.1 ONYCHOMYCOSIS 06/03/2013 MADL FARM SUPERVISOR, ETELVINA L 719.07 EDEMA FOOT 06/03/2013 SALGEURO DO, LADONNA K 110.1 ONYCHOMYCOSIS 06/03/2013 SALGUERO DO, LADONNA K 719.07 EDEMA FOOT 06/03/2013 MADL FARM SUPERVISOR, ETELVINA L 110.1 ONYCHOMYCOSIS 06/03/2013 MADL FARM SUPERVISOR, ETELVINA L 719.07 EDEMA FOOT 08/03/2013 EDUARDO [...] LADONNA K 595.0 ACUTE CYSTITIS 08/25/2013 MADL FARM SUPERVISOR, ETELVINA L 311 depression 08/25/2013 MADL FARM SUPERVISOR, ETELVINA L 595.0 ACUTE CYSTITIS 08/25/2013 MADL FARM SUPERVISOR, ETELVINA L 311 depression 08/25/2013 MADL FARM SUPERVISOR, ETELVINA L 595.0 ACUTE CYSTITIS 08/25/2013 MADL FARM SUPERVISOR, ETELVINA L 311 depression 08/25/2013 MADL FARM SUPERVISOR, ETELVINA L 595.0 ACUTE CYSTITIS 08/25/2013 SALGUERO DO, LADONNA K 311 depression 08/25/2013 SALGUERO DO, LADONNA K 595.0 ACUTE CYSTITIS 08/25/2013 SALGUERO DO, LADONNA K 311 depression 08/25/2013 SALGUERO DO, LADONNA K 595.0 ACUTE CYSTITIS 08/25/2013 MADL FARM SUPERVISOR, ETELVINA L 311 depression 08/25/2013 MADL FARM SUPERVISOR, ETELVINA L 595.0 ACUTE CYSTITIS 08/25/2013 MADL FARM SUPERVISOR, ETELVINA L 311 depression 08/25/2013 MADL FARM SUPERVISOR, ETELVINA L 595.0 ACUTE CYSTITIS 08/25/2013 MADL FARM SUPERVISOR, ETELVINA L 311 depression 08/25/2013 MADL FARM SUPERVISOR, ETELVINA L 595.0 ACUTE CYSTITIS 08/25/2013 MADL FARM SUPERVISOR, ETELVINA L 311 depression 08/25/2013 MADL FARM SUPERVISOR, ETELVINA L 595.0 ACUTE CYSTITIS 08/25/2013 MADL FARM SUPERVISOR, ETELVINA L 311 depression 08/25/2013 MADL FARM SUPERVISOR, ETELVINA L 595.0 ACUTE CYSTITIS 08/25/2013 MADL FARM SUPERVISOR, ETELVINA L 311 depression 08/25/2013 MADL FARM SUPERVISOR, ETELVINA L 595.0 ACUTE CYSTITIS 08/25/2013 MADL FARM SUPERVISOR, ETELVINA L 311 depression 08/25/2013 MADL FARM SUPERVISOR, ETELVINA L 595.0 ACUTE CYSTITIS 08/25/2013 SALGUERO DO, LADONNA K 311 depression 08/25/2013 SALGUERO DO, LADONNA K 595.0 ACUTE CYSTITIS 08/25/2013 SALGUERO DO, LADONNA K 311 depression 08/25/2013 SALGUERO DO, LADONNA K 595.0 ACUTE CYSTITIS 08/25/2013 MADL FARM SUPERVISOR, ETELVINA L 311 depression 08/25/2013 MADL FARM SUPERVISOR, ETELVINA L 595.0 ACUTE CYSTITIS 08/25/2013 SALGUERO DO, LADONNA K 311 depression 08/25/2013 SALGUERO DO, LADONNA K 595.0 ACUTE CYSTITIS 08/25/2013 MADL FARM SUPERVISOR, ETELVINA L 311 depression 08/25/2013 MADL FARM SUPERVISOR, ETELVINA L 595.0 ACUTE CYSTITIS 09/02/2013 SALGUERO [...] LADONNA K 709.8 FISSURES SKIN 09/02/2013 MADL FARM SUPERVISOR, ETELVINA L 709.8 FISSURES SKIN 09/02/2013 MADL FARM SUPERVISOR, ETELVINA L 709.8 FISSURES SKIN 09/02/2013 MADL FARM SUPERVISOR, ETELVINA L 709.8 FISSURES SKIN 09/02/2013 SALGUERO DO, LADONNA K 709.8 FISSURES SKIN 09/02/2013 SALGUERO DO, LADONNA K 709.8 FISSURES SKIN 09/02/2013 MADL FARM SUPERVISOR, ETELVINA L 709.8 FISSURES SKIN 09/02/2013 MADL FARM SUPERVISOR, ETELVINA L 709.8 FISSURES SKIN 09/02/2013 MADL FARM SUPERVISOR, ETELVINA L 709.8 FISSURES SKIN 09/02/2013 MADL FARM SUPERVISOR, ETELVINA L 709.8 FISSURES SKIN 09/02/2013 MADL FARM SUPERVISOR, ETELVINA L 709.8 FISSURES SKIN 09/02/2013 MADL FARM SUPERVISOR, ETELVINA L 709.8 FISSURES SKIN 09/02/2013 MADL FARM SUPERVISOR, ETELVINA L 709.8 FISSURES SKIN 09/02/2013 SALGUERO DO, LADONNA K 709.8 FISSURES SKIN 09/02/2013 SALGUERO DO, LADONNA K 709.8 FISSURES SKIN 09/02/2013 MADL FARM SUPERVISOR, ETELVINA L 709.8 FISSURES SKIN 09/02/2013 SALGUERO DO, LADONNA K 709.8 FISSURES SKIN 09/02/2013 MADL FARM SUPERVISOR, ETELVINA L 709.8 FISSURES SKIN 09/22/2013 BYRON [...] 788.1 pain during urination (dysuria) 09/22/2013 MADL FARM SUPERVISOR, ETELVINA L 788.1 pain during urination (dysuria) 09/22/2013 MADL FARM SUPERVISOR, ETELVINA L 788.1 pain during urination (dysuria) 09/22/2013 MADL FARM SUPERVISOR, ETELVINA L 788.1 pain during urination (dysuria) 09/22/2013 SALGUERO DO, LADONNA K 788.1 PAIN DURING URINATION (DYSURIA) 09/22/2013 SALGUERO DO, LADONNA K 788.1 PAIN DURING URINATION (DYSURIA) 09/22/2013 MADL FARM SUPERVISOR, ETELVINA L 788.1 PAIN DURING URINATION (DYSURIA) 09/22/2013 MADL FARM SUPERVISOR, ETELVINA L 788.1 PAIN DURING URINATION (DYSURIA) 09/22/2013 MADL FARM SUPERVISOR, ETELVINA L 788.1 PAIN DURING URINATION (DYSURIA) 09/22/2013 MADL FARM SUPERVISOR, ETELVINA L 788.1 PAIN DURING URINATION (DYSURIA) 09/22/2013 MADL FARM SUPERVISOR, ETELVINA L 788.1 PAIN DURING URINATION (DYSURIA) 09/22/2013 MADL FARM SUPERVISOR, ETELVINA L 788.1 PAIN DURING URINATION (DYSURIA) 09/22/2013 MADL FARM SUPERVISOR, ETELVINA L 788.1 PAIN DURING URINATION (DYSURIA) 09/22/2013 SALGUERO DO LADONNA K 788.1 PAIN DURING URINATION (DYSURIA) 09/22/2013 SALGUERO DO, LADONNA K 788.1 PAIN DURING URINATION (DYSURIA) 09/22/2013 MADL FARM SUPERVISOR, ETELVINA L 788.1 PAIN DURING URINATION (DYSURIA) 09/22/2013 SALGUERO DO, LADONNA K 788.1 PAIN DURING URINATION (DYSURIA) 09/22/2013 MADMaxine FARM SUPERVISOR, ETELVINA L 788.1 PAIN DURING URINATION (DYSURIA) 10/22/2013 EDUARDO VILLEGAS MD Ot 596.51 HYPERTONICITY OF BLADDER 10/22/2013 EDUARDO VILLEGAS MD Ot 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 10/22/2013 EDUARDO VILLEGAS MD Ot 788.30 UNSPECIFIED URINARY INCONTINENCE 10/22/2013 EDUARDO VILLEGAS MD Ot V58.69 [facility] MED,LT,CURRENT USE 10/25/2013 HARDEEP DORANTES Ot 892.0 OPEN WOUND OF FOOT 10/25/2013 HARDEEP DORANTES Ot 959.7 LOWER LEG INJURY NOS 10/25/2013 HARDEEP DORANTES Ot E000.8 OTHER EXTERNAL CAUSE STATUS 10/25/2013 HARDEEP DORANTES Ot E849.0 ACCIDENT IN HOME 10/25/2013 HARDEEP DORANTES Ot E916 STRUCK BY FALLING OBJECT 10/25/2013 HARDEEP DORANTES Ot V06.1 [id number], COMBINED [ 11/04/2013 MARLA EVERETT MD, Ot [...] LADONNA K Ot 414.01 CORONARY ATHEROSCLEROSIS OF [place] CORON 02/11/2014 NOEMY PRAKASH LADONNA K Ot [...] MASS INDEX 39.0-39.9, ADULT 02/13/2014 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 Ot 724.5 BACKACHE NOS 02/27/2014 TERE SALGUERO DOA K 381.01 ACUTE SEROUS OTITIS MEDIA 02/27/2014 NOEMY PRAKASH LADONNA K 381.01 ACUTE SEROUS OTITIS MEDIA 02/27/2014 NOEMY PRAKASH LADONNA K 381.01 ACUTE SEROUS OTITIS MEDIA 02/27/2014 SALGUERO DO LADONNA K 381.01 ACUTE SEROUS OTITIS MEDIA 02/27/2014 ETELVINA LEONARD APRN 381.01 ACUTE SEROUS OTITIS MEDIA 02/27/2014 MADL FARM SUPERVISOR, ETELVINA L 381.01 ACUTE SEROUS OTITIS MEDIA 02/27/2014 MADL FARM SUPERVISOR, ETELVINA L 381.01 ACUTE SEROUS OTITIS MEDIA 02/27/2014 SALGUERO DO, LADONNA K 381.01 ACUTE SEROUS OTITIS MEDIA 02/27/2014 SALGUERO DO, LADONNA K 381.01 ACUTE SEROUS OTITIS MEDIA 02/27/2014 MADL FARM SUPERVISOR, ETELVINA L 381.01 ACUTE SEROUS OTITIS MEDIA 02/27/2014 MADL FARM SUPERVISOR, ETELVINA L 381.01 ACUTE SEROUS OTITIS MEDIA 02/27/2014 MADL FARM SUPERVISOR, ETELVINA L 381.01 ACUTE SEROUS OTITIS MEDIA 02/27/2014 MADL FARM SUPERVISOR, ETELVINA L 381.01 ACUTE SEROUS OTITIS MEDIA 02/27/2014 MADL FARM SUPERVISOR, ETELVINA L 381.01 ACUTE SEROUS OTITIS MEDIA 02/27/2014 MADL FARM SUPERVISOR, ETELVINA L 381.01 ACUTE SEROUS OTITIS MEDIA 02/27/2014 MADL FARM SUPERVISOR, ETELVINA L 381.01 ACUTE SEROUS OTITIS MEDIA 02/27/2014 SALGUERO DO, LADONNA K 381.01 ACUTE SEROUS OTITIS MEDIA 02/27/2014 SALGUERO DO, LADONNA K 381.01 ACUTE SEROUS OTITIS MEDIA 02/27/2014 MADL FARM SUPERVISOR, ETELVINA L 381.01 ACUTE SEROUS OTITIS MEDIA 02/27/2014 SALGUERO DO, LADONNA K 381.01 ACUTE SEROUS OTITIS MEDIA 02/27/2014 MADL FARM SUPERVISOR, ETELVINA L 381.01 ACUTE SEROUS OTITIS MEDIA 05/22/2014 MADL FARM SUPERVISOR, ETELVINA L V16.0 FAMILY HISTORY OF MALIGNANT NEOPLASM OF GASTROINTESTINAL TRACT 05/22/2014 MADL FARM SUPERVISOR, ETELVINA L V16.0 FAMILY HISTORY OF MALIGNANT NEOPLASM OF GASTROINTESTINAL TRACT 05/22/2014 SALGUERO DO, LADONNA K V16.0 FAMILY HISTORY OF MALIGNANT NEOPLASM OF GASTROINTESTINAL TRACT 05/22/2014 SALGUERO DO, LADONNA K V16.0 FAMILY HISTORY OF MALIGNANT NEOPLASM OF GASTROINTESTINAL TRACT 05/22/2014 MADL FARM SUPERVISOR, ETELVINA L V16.0 FAMILY HISTORY OF MALIGNANT NEOPLASM OF GASTROINTESTINAL TRACT 05/22/2014 MADL FARM SUPERVISOR, ETELVINA L V16.0 FAMILY HISTORY OF MALIGNANT NEOPLASM OF GASTROINTESTINAL TRACT 05/22/2014 MADL FARM SUPERVISOR, ETELVINA L V16.0 FAMILY HISTORY OF MALIGNANT NEOPLASM OF GASTROINTESTINAL TRACT 05/22/2014 MADL FARM SUPERVISOR, ETELVINA L V16.0 FAMILY HISTORY OF MALIGNANT NEOPLASM OF GASTROINTESTINAL TRACT 05/22/2014 MADL FARM SUPERVISOR, ETELVINA L V16.0 FAMILY HISTORY OF MALIGNANT NEOPLASM OF GASTROINTESTINAL TRACT 05/22/2014 MADL FARM SUPERVISOR, ETELVINA L V16.0 FAMILY HISTORY OF MALIGNANT NEOPLASM OF GASTROINTESTINAL TRACT 05/22/2014 MADL FARM SUPERVISOR, ETELVINA L V16.0 FAMILY HISTORY OF MALIGNANT NEOPLASM OF GASTROINTESTINAL TRACT 05/22/2014 SALGUERO DO LADONNA K V16.0 FAMILY HISTORY OF MALIGNANT NEOPLASM OF GASTROINTESTINAL TRACT 05/22/2014 SALGUERO DO LADONNA K V16.0 FAMILY HISTORY OF MALIGNANT NEOPLASM OF GASTROINTESTINAL TRACT 05/22/2014 MADL FARM SUPERVISOR, ETELVINA L V16.0 FAMILY HISTORY OF MALIGNANT NEOPLASM OF GASTROINTESTINAL TRACT 05/22/2014 SALGUERO DO LADONNA K V16.0 FAMILY HISTORY OF MALIGNANT NEOPLASM OF GASTROINTESTINAL TRACT 05/22/2014 AISHA FARM SUPERVISOR, ETELVINA L V16.0 FAMILY HISTORY OF MALIGNANT [...] CCDS Ot 305.1 TOBACCO USE DISORDER 05/23/2014 BRDALY KIRBY MD, FACC FACP CCDS Ot 414.01 CORONARY ATHEROSCLEROSIS OF [place] CORON 05/23/2014 BRADLY KIRBY MD, FACC FACP [...] BODY MASS INDEX 40.0-44.9, ADULT 06/05/2014 JEFERSON SALDANA MD Ot 244.9 HYPOTHYROIDISM NOS 06/05/2014 JEFERSON SALDANA MD Ot 250.00 DIAB MELVA WO COMPL, TYPE II OR UNSPEC TY 06/05/2014 JEFERSON SALDANA MD Ot 272.4 HYPERLIPIDEMIA NEC/NOS 06/05/2014 JEFERSON SALDANA MD Ot 401.9 HYPERTENSION NOS 06/05/2014 JEFERSON SALDANA MD Ot 414.01 CORONARY ATHEROSCLEROSIS OF [place] CORON 06/05/2014 STEVENSON OLVERA, JEFERSON Bruner Ot 496 CHR AIRWAY OBSTRUCT NEC 06/05/2014 JEFERSON SALDANA MD Ot 562.10 DIVERTICULOSIS COLON (W/O MENT OF HEMORR 06/05/2014 JEFERSON SALDANA MD Ot V16.0 FAMILY HX-GI MALIGNANCY 06/05/2014 JEFERSON SALDANA MD Ot V76.51 SCREEN MAL NEOP-COLON 07/10/2014 STEVENSON OLVERA, JEFERSON Bruner Ot 530.3 ESOPHAGEAL STRICTURE 07/10/2014 JEFERSON SALDANA MD Ot 535.50 UNSP GASTRITIS GASTRODUODENITIS W/O ME 07/10/2014 JEFERSON SALDANA MD Ot 553.3 DIAPHRAGMATIC HERNIA 08/28/2014 MADL FARM SUPERVISOR, ETELVINA L 381.01 ACUTE SEROUS OTITIS MEDIA 08/28/2014 MADL FARM SUPERVISOR, ETELVINA L 799.02 HYPOXIA 08/28/2014 MADL FARM SUPERVISOR, ETELVINA L V04.81 FLU SHOT 08/28/2014 MADL FARM SUPERVISOR, ETELVINA L 381.01 ACUTE SEROUS OTITIS MEDIA 08/28/2014 MADL FARM SUPERVISOR, ETELVINA L 799.02 HYPOXIA 08/28/2014 MADL FARM SUPERVISOR, ETELVINA L V04.81 FLU SHOT 08/28/2014 MADL FARM SUPERVISOR, ETELVINA L 381.01 ACUTE SEROUS OTITIS MEDIA 08/28/2014 MADL FARM SUPERVISOR, ETELVINA L 799.02 HYPOXIA 08/28/2014 MADL FARM SUPERVISOR, ETELVINA L V04.81 FLU SHOT 08/28/2014 MADL FARM SUPERVISOR, ETELVINA L 381.01 ACUTE SEROUS OTITIS MEDIA 08/28/2014 MADL FARM SUPERVISOR, ETELVINA L 799.02 HYPOXIA 08/28/2014 MADL FARM SUPERVISOR, ETELVINA L V04.81 FLU SHOT 08/28/2014 MADL FARM SUPERVISOR, ETELVINA L 381.01 ACUTE SEROUS OTITIS MEDIA 08/28/2014 MADL FARM SUPERVISOR, ETELVINA L 799.02 HYPOXIA 08/28/2014 MADL FARM SUPERVISOR, ETELVINA L V04.81 FLU SHOT 08/28/2014 MADL FARM SUPERVISOR, ETELVINA L 381.01 ACUTE SEROUS OTITIS MEDIA 08/28/2014 MADL FARM SUPERVISOR, ETELVINA L 799.02 HYPOXIA 08/28/2014 MADL FARM SUPERVISOR, ETELVINA L V04.81 FLU SHOT 08/28/2014 MADL FARM SUPERVISOR, ETELVINA L 381.01 ACUTE SEROUS OTITIS MEDIA 08/28/2014 MADL FARM SUPERVISOR, ETELVINA L 799.02 HYPOXIA 08/28/2014 MADL FARM SUPERVISOR, ETELVINA L V04.81 FLU SHOT 08/28/2014 SALGUERO DO, LADONNA K 381.01 ACUTE SEROUS OTITIS MEDIA 08/28/2014 SALGUERO DO, LADONNA K 799.02 HYPOXIA 08/28/2014 SALGUERO DO, LADONNA K V04.81 FLU SHOT 08/28/2014 SALGUERO DO, LADONNA K 381.01 ACUTE SEROUS OTITIS MEDIA 08/28/2014 SALGUERO DO, LADONNA K 799.02 HYPOXIA 08/28/2014 SALGUERO DO, LADONNA K V04.81 FLU SHOT 08/28/2014 MADL FARM SUPERVISOR, ETELVINA L 381.01 ACUTE SEROUS OTITIS MEDIA 08/28/2014 MADL FARM SUPERVISOR, ETELVINA L 799.02 HYPOXIA 08/28/2014 MADL FARM SUPERVISOR, ETELVINA L V04.81 FLU SHOT 08/28/2014 SALGUERO DO, LADONNA K 381.01 ACUTE SEROUS OTITIS MEDIA 08/28/2014 SALGUERO DO, LADONNA K 799.02 HYPOXIA 08/28/2014 SALGUERO DO, LADONNA K V04.81 FLU SHOT 08/28/2014 MADL FARM SUPERVISOR, ETELVINA L 381.01 ACUTE SEROUS OTITIS MEDIA 08/28/2014 MADL FARM SUPERVISOR, ETELVINA L 799.02 HYPOXIA 08/28/2014 MADL ETELVINA HARRIS L V04.81 FLU SHOT 08/31/2014 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 Ot 250.00 DIAB MELVA WO COMPL, TYPE II OR UNSPEC TY 08/31/2014 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 Ot 305.1 TOBACCO USE DISORDER 08/31/2014 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 Ot 382.9 OTITIS MEDIA NOS 08/31/2014 THOMPSON QURESHI APRN Ot 784.2 SWELLING IN HEAD NECK 08/31/2014 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 Ot 910.4 INSECT BITE HEAD 08/31/2014 THOMPSON QURESHI APRN Ot E849.0 ACCIDENT IN HOME 08/31/2014 THOMPSON QURESHI APRN Ot E906.4 NONVENOM ARTHROPOD BITE 08/31/2014 THOMPSON QURESHI APRN Ot V58.67 LONG-TERM (CURRENT) USE OF INSULIN 09/01/2014 THOMPSON QURESHI APRN Ot 373.00 BLEPHARITIS NOS 09/01/2014 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 Ot 379.92 SWELLING OR MASS OF EYE [...] L V03.82 PPV23 (PNEUMOVAX) DX 10/23/2014 MADL FARM SUPERVISOR, ETELVINA L 112.3 CANDIDIASIS OF SKIN AND [...] JOINT INVOLVING ANKLE AND FOOT 12/11/2014 HUGOL FARM SUPERVISORSARA BowserETELVINA L 719.46 PAIN IN JOINT INVOLVING LOWER LEG 12/11/2014 MADL FARM SUPERVISORANDREZ BowserNYA L 719.47 PAIN IN JOINT INVOLVING ANKLE AND FOOT 12/11/2014 SALGUERO DO LADONNA K 719.46 PAIN IN JOINT INVOLVING LOWER LEG 12/11/2014 NOEMY PRAKASH LADONNA K 719.47 PAIN IN JOINT INVOLVING ANKLE AND FOOT 12/11/2014 MADL SARA HARRISWNYA L 719.46 PAIN IN JOINT INVOLVING LOWER LEG 12/11/2014 MADL FARM SUPERVISORANDREZ BowserNYA L 719.47 PAIN IN JOINT INVOLVING [...] HARRIS, ETELVINA L 757.39 POROKEROTOSIS 02/09/2015 MADL FARM SUPERVISOR, ETELVINA L 788.1 DYSURIA 02/09/2015 MADL FARM SUPERVISOR, ETELVINA L 789.02 ABDOMINAL PAIN LEFT UPPER QUADRANT 02/09/2015 NOEMY PRAKASH LADONNA K 735.4 HAMMER TOE (ACQUIRED) 02/09/2015 NOEMY DO LADONNA K 757.39 POROKEROTOSIS 02/09/2015 SALGUERO DO LADONNA K 788.1 DYSURIA 02/09/2015 NOEMY PRAKASH LADONNA K 789.02 ABDOMINAL PAIN LEFT UPPER QUADRANT 02/09/2015 MADL FARM SUPERVISOR, ETELVINA L 735.4 HAMMER TOE (ACQUIRED) 02/09/2015 AISHA HARRIS, ETELVINA L 757.39 POROKEROTOSIS 02/09/2015 HUGOL KIMBERLY, ETELVINA L 788.1 DYSURIA 02/09/2015 AISHA HARRIS, ETELVINA L 789.02 ABDOMINAL PAIN LEFT UPPER QUADRANT 02/19/2015 MADL KIMBERLY, ETELVINA L 780.2 SYNCOPE AND COLLAPSE 02/19/2015 SALGUERO DO, LADONNA K 780.2 SYNCOPE AND COLLAPSE 02/19/2015 MADL FARM SUPERVISOR, ETELVINA L 780.2 SYNCOPE AND COLLAPSE 02/20/2015 QUE LEON MD Ot 250.00 DIAB MELVA WO COMPL, TYPE II OR UNSPEC TY 02/20/2015 QUE LEON MD Ot 305.1 TOBACCO USE DISORDER 02/20/2015 QUE LEON MD Ot 401.9 HYPERTENSION NOS 02/20/2015 QUE LEON MD Ot 414.01 CORONARY ATHEROSCLEROSIS OF [place] CORON 02/20/2015 QUE LEON MD Ot 458.0 ORTHOSTATIC HYPOTENSION 02/20/2015 QUE LEON MD Ot 584.9 ACUTE RENAL FAILURE, UNSPECIFIED 02/20/2015 QUE LEON MD Ot V15.88 HISTORY OF FALL 02/27/2015 ETELVINA LEONARD APRN L 593.9 UNSPECIFIED DISORDER OF KIDNEY AND URETER 03/01/2015 HAMMAD LEONARDA L SAFETY FIRE BOSS Ot 414.00 03/01/2015 HAMMAD LEONARDA L SAFETY FIRE BOSS Ot 780.2 03/01/2015 MADHAMMAD GoodmanA L SAFETY FIRE BOSS Ot V45.82 03/26/2015 Ot 786.09 03/26/2015 Ot [...] OLVERA, EDUARDO Garcia Ot 599.82 03/26/2015 BAKARI OLVREA, EDUARDO Garcia Ot 788.30 03/26/2015 BAKARI OLVERA, EDUARDO Garcia Ot V72.63 03/26/2015 BAKARI OLVERA, EDUARDO Garcia Ot V74.8 03/26/2015 BAKARI OLVERA, EDUARDO Garcia Ot 599.82 03/26/2015 BAKARI OLVERA, EDUARDO Garcia Ot 788.30 03/26/2015 BAKARI OLVERA, EDUARDO Garcia Ot V72.63 03/26/2015 BAKARI OLVERA, EDUARDO Garcia Ot V74.8 03/26/2015 BAIKYLAH ABAD L SAFETY FIRE BOSS Ot 396.3 03/26/2015 BAIMA KYLAH L SAFETY FIRE BOSS Ot 397.0 03/26/2015 BAIJENNIFFER KYLAH L SAFETY FIRE BOSS Ot 401.9 03/26/2015 BAIJENNIFFER KYLAH L SAFETY FIRE BOSS Ot 414.00 03/26/2015 BAIMA KYLAH L SAFETY FIRE BOSS Ot 250.00 03/26/2015 BAIMA, KYLAH L SAFETY FIRE BOSS Ot 272.4 03/26/2015 BAIMA, KYLAH L SAFETY FIRE BOSS Ot 305.1 03/26/2015 BAIMA, KYLAH L SAFETY FIRE BOSS Ot 401.9 03/26/2015 BAIMA, KYLAH L SAFETY FIRE BOSS Ot 414.00 03/26/2015 BAIMA, KYLAH L SAFETY FIRE BOSS Ot 424.90 03/26/2015 BAIMA, KYLAH L SAFETY FIRE BOSS Ot 496 03/26/2015 TAMARA OLVERA, PATRICIA L Ot 996.78 03/26/2015 TAMARA OLVERA, PATRICIA L Ot V72.63 03/26/2015 TAMARA OLVERA, PATRICIA L Ot V72.81 03/26/2015 TAMARA OLVERA, PATRICIA L Ot V74.8 03/26/2015 KARYN OLVERA, BYRON M Ot 272.4 03/26/2015 KARYN OLVERA, BYRON M Ot 338.29 03/26/2015 KARYN OLVERA, BYRON M Ot 401.9 03/26/2015 BAIMA, KYLAH L SAFETY FIRE BOSS Ot 414.00 03/26/2015 BAIMA, KYLAH L SAFETY FIRE BOSS Ot 429.3 03/26/2015 STEVENSON OLVERA, JEFERSON M Ot V72.84 03/26/2015 BAIMA, KYLAH L SAFETY FIRE BOSS Ot 272.4 03/26/2015 STEVENSON OLVERA, JEFERSON M Ot V72.84 03/26/2015 KOFI OLVERA FAC, ALI FACP CCDS Ot 272.4 03/26/2015 KOFI OLVERA FACC, ALI FACP CCDS Ot 414.00 03/26/2015 KOFI OLVERA FACC, ALI FACP CCDS Ot 414.8 03/26/2015 KOFI OLVERA FACC, ALI FACP CCDS Ot 458.9 03/26/2015 KOFI OLVERA FACC, ALI FACP CCDS Ot 780.4 03/26/2015 MADL, ETELVINA L SAFETY FIRE BOSS Ot 414.00 03/26/2015 MADL, ETELVINA L SAFETY FIRE BOSS Ot 780.2 03/26/2015 MADL, ETELVINA L SAFETY FIRE BOSS Ot V45.82 03/26/2015 BAIMA, KYLAH L SAFETY FIRE BOSS Ot 272.4 03/26/2015 BAIMA, KYLAH L SAFETY FIRE BOSS Ot 276.9 03/26/2015 BAIMA, KYLAH L SAFETY FIRE BOSS Ot 401.9 03/26/2015 BAIKYLAH ABAD L SAFETY FIRE BOSS Ot 414.00 03/26/2015 GELLENDER DO, BILL A Ot 250.00 03/26/2015 GELLENDER DO, BILL A Ot 272.4 03/26/2015 GELLENDER DO, BILL A Ot 414.00 04/05/2015 BAIJENNIFFER, KYLAH L SAFETY FIRE BOSS Ot 272.4 04/05/2015 BAIMA, KYLAH L SAFETY FIRE BOSS Ot 276.9 04/05/2015 BAIMA, KYLAH L SAFETY FIRE BOSS Ot 401.9 04/05/2015 BAIJENNIFFER, KYLAH L SAFETY FIRE BOSS Ot 414.00 04/05/2015 GELLENDER DO, BILL A Ot 250.00 04/05/2015 GELLENDER DO, BILL A Ot 272.4 04/05/2015 [facility] DO, BILL A Ot 414.00 04/06/2015 MADLETELVINA L SAFETY FIRE BOSS Ot 414.00 04/06/2015 MADL, ETELVINA L SAFETY FIRE BOSS Ot 780.2 04/06/2015 MADL, ETELVINA L SAFETY FIRE BOSS Ot V45.82 05/22/2015 [facility] [place] DO, BILL Garcia Ot 724.5 05/22/2015 [facility], [facility] DO, BILL Garcia Ot 733.90 05/24/2015 [facility] Garcia Ot 715.37 [...] FACP CCDS Ot 530.81 07/16/2015 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 Ot 916.0 ABRASION HIP LEG 07/16/2015 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 Ot 923.10 CONTUSION OF FOREARM 07/16/2015 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 Ot 959.7 LOWER LEG INJURY NOS 07/16/2015 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 Ot E000.8 OTHER EXTERNAL CAUSE STATUS 07/16/2015 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 Ot E849.6 ACCIDENT IN PUBLIC BLDG 07/16/2015 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 Ot E888.9 FALL NOS 07/23/2015 BRYN DO, [...] A Ot V74.8 09/13/2015 BAIMA, KYLAH L SAFETY FIRE BOSS Ot 396.3 09/13/2015 BAIMA, KYLAH L SAFETY FIRE BOSS Ot 397.0 09/13/2015 BAIMA, KYLAH L SAFETY FIRE BOSS Ot 401.9 09/13/2015 BAIMA, KYLAH L SAFETY FIRE BOSS Ot 414.00 09/13/2015 BAIMA, KYLAH L SAFETY FIRE BOSS Ot 250.00 09/13/2015 BAIMA, KYLAH L SAFETY FIRE BOSS Ot 272.4 09/13/2015 BAIMA, KYLAH L SAFETY FIRE BOSS Ot 305.1 09/13/2015 BAIMA, KYLAH L SAFETY FIRE BOSS Ot 401.9 09/13/2015 BAIMA, KYLAH L SAFETY FIRE BOSS Ot 414.00 09/13/2015 BAIMA, KYLAH L SAFETY FIRE BOSS Ot 424.90 09/13/2015 BAIMA, KYLAH L SAFETY FIRE BOSS Ot 496 09/13/2015 TAMARA OLVERA, PATRICIA L Ot 996.78 09/13/2015 TAMARA OLVERA, PATRICIA L Ot V72.63 09/13/2015 TAMARA OLVERA, PATRICIA L Ot V72.81 09/13/2015 TAMARA OLVERA, PATRICIA L Ot V74.8 09/13/2015 KARYN OLVERA, BYRON Bruner Ot 272.4 09/13/2015 BYRON BOSS MD Ot 338.29 09/13/2015 KARYN OLVERA, BYRON Bruner Ot 401.9 09/13/2015 BAIMA, KYLAH L SAFETY FIRE BOSS Ot 414.00 09/13/2015 BAIMA, KYLAH L SAFETY FIRE BOSS Ot 429.3 09/13/2015 STEVENSON OLEVRA, JEFERSON Bruner Ot V72.84 09/13/2015 BAIMA, KYLAH L SAFETY FIRE BOSS Ot 272.4 09/13/2015 STEVENSON OLVERA, JEFERSON Bruner Ot V72.84 09/13/2015 KOFI OLVERA FACC, ALI FACP CCDS Ot 272.4 09/13/2015 KOFI OLVERA FACC, ALI FACP CCDS Ot 414.00 09/13/2015 KOFI OLVERA FACC, ALI FACP CCDS Ot 414.8 09/13/2015 KOFI OLVERA FACC, ALI FACP CCDS Ot 458.9 09/13/2015 KOFI OLVERA FACC, ALI FACP CCDS Ot 780.4 09/13/2015 MADL, ETELVINA L SAFETY FIRE BOSS Ot 414.00 09/13/2015 MADL, ETELVINA L SAFETY FIRE BOSS Ot 780.2 09/13/2015 MADL, ETELVINA L SAFETY FIRE BOSS Ot V45.82 09/13/2015 BAIMA, KYLAH L SAFETY FIRE BOSS Ot 272.4 09/13/2015 BAIMA, KYLAH L SAFETY FIRE BOSS Ot 276.9 09/13/2015 BAIMA, KYLAH L SAFETY FIRE BOSS Ot 401.9 09/13/2015 BAIMA, KYLAH L SAFETY FIRE BOSS Ot 414.00 09/13/2015 GELLENDER DO, BILL A [...] FACP CCDS Ot 305.1 09/13/2015 KOFI OLVERA [facility], ALI FACP CCDS Ot 401.9 09/13/2015 KOFI OLVERA [facility], ALI FACP CCDS Ot 414.00 09/13/2015 KOFI OLVERA FAC, ALI FACP CCDS Ot 447.72 09/13/2015 KOFI OLVERA FAC, ALI FACP CCDS Ot 458.9 09/13/2015 KOFI OLVERA [facility], ALI FACP CCDS Ot 496 09/13/2015 KOFI OLVERA [facility], ALI FACP CCDS Ot 530.81 09/13/2015 GELLENDER DO, BILL Garcia Ot 250.00 09/13/2015 GELLENDER DO, BILL A Ot 959.7 09/13/2015 GELLENDER DO, BILL A Ot E000.8 09/13/2015 GELLENDER DO, BILL Garcia Ot E928.9 09/25/2015 KYLAH CREWS SAFETY FIRE BOSS Ot E78.5 09/25/2015 KYLAH CREWS SAFETY FIRE BOSS Ot I25.9 10/07/2015 JESSIE OLVERA, BETTINA Nation [...] 10/07/2015 JESSIE OLVERA, BETTINA Nation Ot Z79.4 SKILLED NURSING (CURRENT) USE OF INSULIN 10/12/2015 GELLENDER DO, BILL A Ot N39.0 10/16/2015 GELLENDER DO, BILL Garcia Ot N39.0 12/01/2015 KARLOS OLVERA, MARLA Ackerman Ot H05.221 EDEMA OF RIGHT ORBIT 12/01/2015 KARLOS OLVERA, MARLA Ackerman Ot R05 COUGH 12/01/2015 KARLOS OLVERA, MARLA Ackerman Ot R51 HEADACHE 12/09/2015 JESSIE OLVERA, BETTINA Nation Ot H00.021 HORDEOLUM INTERNUM RIGHT UPPER EYELID 03/05/2016 [place] NULL MD, Ot F17.210 NICOTINE DEPENDENCE, CIGARETTES, [...] 03/09/2016 MARLA EVERETT MD Ot Z79.899 OTHER SKILLED NURSING (CURRENT) DRUG THERAPY 03/11/2016 MARLA EVERETT MD [...] CCDS Ot I25.10 ATHSCL HEART DISEASE OF [place] CORONARY 03/21/2016 KOFI OLVERA FACC, ALI FACP CCDS Ot E78.5 HYPERLIPIDEMIA, UNSPECIFIED 03/21/2016 KOFI OLVERA FACC, ALI FACP CCDS Ot I25.10 ATHSCL HEART DISEASE OF [place] CORONARY 04/02/2016 STEVENSON OLVERA, JEFERSON Bruner Ot R13.10 DYSPHAGIA, UNSPECIFIED 04/02/2016 STEVENSON OLVERA, JEFERSON Bruner Ot Z01.818 ENCOUNTER FOR OTHER PREPROCEDURAL EXAMIN 04/03/2016 STEVENSON OLVERA, JEFERSON Bruner Ot R13.10 DYSPHAGIA, UNSPECIFIED 04/03/2016 STEVENSON OLVERA, JEFERSON Bruner Ot Z01.818 ENCOUNTER FOR OTHER PREPROCEDURAL EXAMIN 04/07/2016 STEVENSON OLVERA, JEFERSON Bruner Ot K20.9 ESOPHAGITIS, UNSPECIFIED 04/07/2016 STEVENSON OLVERA, JEFERSON Bruner Ot K29.70 GASTRITIS, UNSPECIFIED, WITHOUT BLEEDING 04/07/2016 STEVENSON OLVERA, JEFERSON Bruner Ot K44.9 DIAPHRAGMATIC HERNIA WITHOUT OBSTRUCTION 04/08/2016 STEVENSON OLVERA, JEFERSON Bruner Ot K20.9 ESOPHAGITIS, UNSPECIFIED 04/08/2016 STEVENSON OLVERA, JEFERSON Bruner Ot K29.70 GASTRITIS, UNSPECIFIED, WITHOUT BLEEDING 04/08/2016 STEVENSON OLVERA, JEFERSON Bruner Ot K44.9 DIAPHRAGMATIC HERNIA WITHOUT OBSTRUCTION 04/30/2016 Ot V67.9 05/30/2016 Ot V67.9 09/30/2016 Ot V67.9 12/30/2016 Ot V76.12 OTH SCREEN MAMMO-MALIGN NEOPLASM OF [place] 12/30/2016 Ot 414.01 CORONARY ATHEROSCLEROSIS OF [place] CORON 12/30/2016 Ot 786.50 CHEST PAIN NOS [...] SCREEN-BACTERIAL DIS NEC 12/30/2016 BAIMA, KYLAH L SAFETY FIRE BOSS Ot 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 12/30/2016 BAIMA, KYLAH L SAFETY FIRE BOSS Ot 397.0 TRICUSPID VALVE DISEASE 12/30/2016 BAIMA, KYLAH L SAFETY FIRE BOSS Ot 401.9 HYPERTENSION NOS 12/30/2016 BAIMA, KYLAH L SAFETY FIRE BOSS Ot 414.00 CORON ATHEROSCLER NOS TYPE VESSEL, NATIV 12/30/2016 BAIMA, KYLAH L SAFETY FIRE BOSS Ot 250.00 DIAB MELVA WO COMPL, TYPE II OR UNSPEC TY 12/30/2016 BAIMA, KYLAH L SAFETY FIRE BOSS Ot 272.4 HYPERLIPIDEMIA NEC/NOS 12/30/2016 KYLAH CREWS L SAFETY FIRE BOSS Ot 305.1 TOBACCO USE DISORDER 12/30/2016 KYLAH CREWS L SAFETY FIRE BOSS Ot 401.9 HYPERTENSION NOS 12/30/2016 KYLAH CREWS L SAFETY FIRE BOSS Ot 414.00 CORON ATHEROSCLER NOS TYPE VESSEL, NATIV 12/30/2016 KYLAH CREWS L SAFETY FIRE BOSS Ot 424.90 ENDOCARDITIS NOS 12/30/2016 KYLAH CREWS L SAFETY FIRE BOSS Ot 496 CHR AIRWAY OBSTRUCT NEC 12/30/2016 PATRICIA MCDONALD MD Ot 996.78 OTH COMP DUE TO OTH INTRNL ORTHPEDIC DEV 12/30/2016 PATRICIA MCDONALD MD Ot V72.63 PRE-PROCEDURAL LABORATORY EXAMINATION 12/30/2016 PATRICIA MCDONALD MD Ot V72.81 [id number] CARDIOVASCULAR 12/30/2016 PATRICIA MCDONALD MD Ot V74.8 SCREEN-BACTERIAL DIS NEC 12/30/2016 BYRON BOSS MD Ot 272.4 HYPERLIPIDEMIA NEC/NOS 12/30/2016 BYRON BOSS MD Ot 338.29 OTHER CHRONIC PAIN 12/30/2016 BYRON BOSS MD Ot 401.9 HYPERTENSION NOS 12/30/2016 KYLAH CREWS L SAFETY FIRE BOSS Ot 414.00 CORON ATHEROSCLER NOS TYPE VESSEL, NATIV 12/30/2016 KYLAH CREWS L [employer]AF[employer] FIRE BOSS Ot 429.3 CARDIOMEGALY 12/30/2016 JEFERSON SALDANA MD Ot V72.84 EXAM PRE-OPERATIVE NOS 12/30/2016 PERLAKYLAH ABAD L SAFETY FIRE BOSS Ot 272.4 HYPERLIPIDEMIA NEC/NOS 12/30/2016 STEVENSON OLVERA, JEFERSON Bruner Ot V72.84 EXAM PRE-OPERATIVE [...] 780.4 DIZZINESS AND GIDDINESS 12/30/2016 KYLAH [employer]WS [employer] FIRE BOSS Ot E78.5 HYPERLIPIDEMIA, UNSPECIFIED 12/30/2016 KYLAH [employer]WS [employer] FIRE BOSS Ot I25.9 CHRONIC ISCHEMIC HEART DISEASE, UNSPECIF 12/30/2016 ETELVINA LEONARD SAFETY FIRE BOSS Ot 414.00 CORON ATHEROSCLER NOS TYPE VESSEL, NATIV 12/30/2016 ETELVINA LEONARD SAFETY FIRE BOSS Ot 780.2 SYNCOPE AND COLLAPSE 12/30/2016 ETELVINA LEONARD SAFETY FIRE BOSS Ot V45.82 PERCUTANEOUS TRANSLUM CORON ANGIOPLASTY 12/30/2016 KYLAH CREWS [employer] FIRE BOSS Ot 272.4 HYPERLIPIDEMIA NEC/NOS 12/30/2016 KYLAH CREWS [employer] FIRE BOSS Ot 276.9 ELECTROLYT/FLUID DIS NEC 12/30/2016 KYLAH CREWS [employer] FIRE BOSS Ot 401.9 HYPERTENSION NOS 12/30/2016 KYLAH [employer]WS [employer] FIRE BOSS Ot 414.00 CORON ATHEROSCLER NOS TYPE VESSEL, [...] CHR AIRWAY OBSTRUCT NEC 12/30/2016 KOFI OLVERA [facility], ALI FACP CCDS Ot 530.81 ESOPHAGEAL REFLUX 12/30/2016 KYLAH CREWS [employer] FIRE BOSS Ot I71.4 ABDOMINAL AORTIC ANEURYSM, WITHOUT RUPTU [...] INFECTION, SITE NOT SPECIF 12/30/2016 KOFI OLVERA [facility], BRADLY FACP CCDS Ot E78.5 HYPERLIPIDEMIA, UNSPECIFIED 12/30/2016 KOFI OLVERA [facility], BRADLY FAC CCDS Ot I25.10 ATHSCL HEART DISEASE OF [place] CORONARY 01/01/2017 ADELFO WASHINGTON SAFETY FIRE BOSS Ot I71.4 ABDOMINAL AORTIC ANEURYSM, WITHOUT RUPTU 01/01/2017 ADELFO [place] SAF[employer] FIRE BOSS Ot I71.4 ABDOMINAL AORTIC ANEURYSM, WITHOUT RUPTU 01/01/2017 ADELFO [place] SAF[employer] FIRE BOSS Ot I71.4 ABDOMINAL AORTIC ANEURYSM, WITHOUT RUPTU 01/21/2017 ADELFO [place] [employer]AF[employer] FIRE BOSS Ot I71.4 ABDOMINAL AORTIC ANEURYSM, WITHOUT RUPTU [...] SCREEN-BACTERIAL DIS NEC 11/26/2017 BAIMA, KYLAH L SAFETY FIRE BOSS Ot 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 11/26/2017 BAIMA, KYLAH L SAFETY FIRE BOSS Ot 397.0 TRICUSPID VALVE DISEASE 11/26/2017 BAIMA, KYLAH L SAFETY FIRE BOSS Ot 401.9 HYPERTENSION NOS 11/26/2017 BAIMA, KYLAH L SAFETY FIRE BOSS Ot 414.00 CORON ATHEROSCLER NOS TYPE VESSEL, NATIV 11/26/2017 BAIMA, KYLAH L SAFETY FIRE BOSS Ot 250.00 DIAB MELVA WO COMPL, TYPE II OR UNSPEC TY 11/26/2017 BAIMA, KYLAH L SAFETY FIRE BOSS Ot 272.4 HYPERLIPIDEMIA NEC/NOS 11/26/2017 BAIMA, KYLAH L SAFETY FIRE BOSS Ot 305.1 TOBACCO USE DISORDER 11/26/2017 BAIMA, KYLAH L SAFETY FIRE BOSS Ot 401.9 HYPERTENSION NOS 11/26/2017 BAIMA, KYLAH L SAFETY FIRE BOSS Ot 414.00 CORON ATHEROSCLER NOS TYPE VESSEL, NATIV 11/26/2017 BAIMA, KYLAH L SAFETY FIRE BOSS Ot 424.90 ENDOCARDITIS NOS 11/26/2017 BAIMA, KYLAH L SAFETY FIRE BOSS Ot 496 CHR AIRWAY OBSTRUCT NEC 11/26/2017 PATRICIA MCDONALD MD Ot 996.78 OTH COMP DUE TO OTH INTRNL ORTHPEDIC DEV 11/26/2017 PATRICIA MCDONALD MD, Ot V72.63 PRE-PROCEDURAL LABORATORY EXAMINATION 11/26/2017 PATRICIA MCDONALD MD, Ot V72.81 [id number] CARDIOVASCULAR 11/26/2017 REVEAL MD, PATRICIA L Ot V74.8 SCREEN-BACTERIAL DIS NEC 11/26/2017 KARYN OLVERA, BYRON Bruner Ot 272.4 HYPERLIPIDEMIA NEC/NOS 11/26/2017 KARYN OLVERA, BYRON Bruner Ot 338.29 OTHER CHRONIC PAIN 11/26/2017 KARYN OLVERA, BYRON Bruner Ot 401.9 HYPERTENSION NOS 11/26/2017 BAIMA, KYLAH L SAFETY FIRE BOSS Ot 414.00 CORON ATHEROSCLER NOS TYPE VESSEL, NATIV 11/26/2017 BAIMA, KYLAH L SAFETY FIRE BOSS Ot 429.3 CARDIOMEGALY 11/26/2017 STEVENSON OLVERA, JEFERSON Bruner Ot V72.84 EXAM PRE-OPERATIVE NOS 11/26/2017 BAIMA, KYLAH L SAFETY FIRE BOSS Ot 272.4 HYPERLIPIDEMIA NEC/NOS 11/26/2017 STEVENSON OLVERA, JEFERSON Bruner Ot V72.84 EXAM PRE-OPERATIVE [...] DIZZINESS AND GIDDINESS 11/26/2017 BAIMA, KYLAH L SAFETY FIRE BOSS Ot E78.5 HYPERLIPIDEMIA, UNSPECIFIED 11/26/2017 BAIMA, KYLAH L SAFETY FIRE BOSS Ot I25.9 CHRONIC ISCHEMIC HEART DISEASE, UNSPECIF 11/26/2017 MADL, ETELVINA L SAFETY FIRE BOSS Ot 414.00 CORON ATHEROSCLER NOS TYPE VESSEL, NATIV 11/26/2017 MADL, ETELVINA L SAFETY FIRE BOSS Ot 780.2 SYNCOPE AND COLLAPSE 11/26/2017 MADL, ETELVINA L SAFETY FIRE BOSS Ot V45.82 PERCUTANEOUS TRANSLUM CORON ANGIOPLASTY 11/26/2017 BAIMA, KYLAH L SAFETY FIRE BOSS Ot 272.4 HYPERLIPIDEMIA NEC/NOS 11/26/2017 BAIMA, KYLAH L SAFETY FIRE BOSS Ot 276.9 ELECTROLYT/FLUID DIS NEC 11/26/2017 BAIMA, KYLAH L SAFETY FIRE BOSS Ot 401.9 HYPERTENSION NOS 11/26/2017 BAIMA, KYLAH L SAFETY FIRE BOSS Ot 414.00 CORON ATHEROSCLER NOS TYPE VESSEL, [...] Ot 530.81 ESOPHAGEAL REFLUX 11/26/2017 KYLAH CREWS SAFETY FIRE BOSS Ot I71.4 ABDOMINAL AORTIC ANEURYSM, WITHOUT RUPTU [...] CCDS Ot I25.10 ATHSCL HEART DISEASE OF [place] CORONARY 11/26/2017 ADELFO [place] SAFETY FIRE BOSS Ot I71.4 ABDOMINAL AORTIC ANEURYSM, WITHOUT RUPTU [...] CCDS Ot I25.10 ATHSCL HEART DISEASE OF [place] CORONARY 12/01/2017 KOFI OLVERA FACC, ALI FACP [...] CCDS Ot I25.10 ATHSCL HEART DISEASE OF [place] CORONARY 12/03/2017 KOFI OLVERA FACC, ALI FACP [...] CCDS Ot I25.10 ATHSCL HEART DISEASE OF [place] CORONARY 12/10/2017 KOFI OLVERA FACC, ALI FACP CCDS Ot I25.5 ISCHEMIC CARDIOMYOPATHY 12/10/2017 KOFI OLVERA FACC, ALI FACP CCDS Ot I73.9 PERIPHERAL VASCULAR DISEASE, UNSPECIFIED 12/10/2017 KOFI OLVERA FACC, ALI FACP CCDS Ot J43.8 OTHER EMPHYSEMA 12/10/2017 KOFI OLVERA FACC, ALI FACP CCDS Ot R06.02 SHORTNESS OF BREATH 12/10/2017 KOFI OLVERA [facility], ALI FACP CCDS Ot Z72.0 TOBACCO USE 12/17/2017 KOFI OLVERA FACC, ALI FACP CCDS Ot E11.9 TYPE 2 DIABETES MELLITUS WITHOUT COMPLIC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 11:17:00 03/26/2015 23:59:59 CLS Outpatient BILL CLEMENTE DO [facility] BACK PAIN, [id number] 03/16/2015 10:23:00 03/16/2015 23:59:59 CLS Outpatient BILL CLEMENTE DO [facility] DM II,CAD,HLP [id number] 03/16/2015 10:20:00 03/16/2015 23:59:59 CLS Outpatient KYLAH CREWS SAFETY FIRE BOSS [facility] ELECTROLYTE DEPLETION ,CAD,HTN,HLP [id number] 03/01/2015 07:26:00 03/01/2015 23:59:59 CLS Outpatient ETELVINA LEONARD SAFETY FIRE BOSS [facility] CARD NEAR SYNCOPE EPISODE CAD [id number] 02/19/2015 16:09:00 02/20/2015 13:40:00 DIS Inpatient CAROLYN OLVERA, QUE Bowser [facility] 4TH ORTHOSTATIC HYPOTENSION; ACUTE RENAL FAILURE [id number] 12/30/2014 11:12:00 12/30/2014 14:54:00 DIS Emergency INES REYNOSO MD [facility] SOA,DIZZINESS [id number] 11/03/2014 08:58:00 11/03/2014 10:36:00 DIS Emergency DANIELITO SORIANO MD [facility] COUGH/CONGESTION [id number] 10/30/2014 14:50:00 10/30/2014 16:25:00 DIS Emergency HARDEEP DORANTES [facility] NAUSEATED/BODYACHES/ WEAKNESS EARACHE/RINGING [id number] 10/01/2014 13:53:00 10/01/2014 14:57:00 DIS Emergency FELICIA ENCINAS DO K [facility] RECTAL BLEEDING [id number] 09/11/2014 09:46:00 09/11/2014 23:59:59 CLS Outpatient KOFI OLVERA FACC, BRADLY NIX CCDS [facility] CARD ISCHEMIC CARDIO MYOPATHY,CAD [id number] 09/01/2014 10:58:00 09/01/2014 11:40:00 DIS Emergency THOMPSON QURESHI APRN [facility] SWOLLEN EYE [id number] 08/31/2014 16:55:00 08/31/2014 18:16:00 DIS Emergency 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 [facility] NECK SWELLING [id number] 07/10/2014 09:07:00 07/10/2014 11:55:00 DIS Outpatient [facility] [id number] 07/05/2014 07:29:00 07/05/2014 23:59:59 CLS Outpatient JEFERSON SALDANA MD [facility] PREOP DYSPHAGIA [id number] 06/05/2014 08:24:00 06/05/2014 11:43:00 DIS Outpatient JEFERSON SALDANA MD [facility] SCREENING;FAMILY HISTORY [id number] 05/31/2014 07:28:00 05/31/2014 23:59:59 CLS Outpatient JEFERSON SALDANA MD [facility] PREOP SCREENING;FAMILY HISTORY [id number] 05/29/2014 12:18:00 05/29/2014 23:59:59 CLS Outpatient KYLAH CREWS [facility] POST HEART CATH [id number] 05/23/2014 06:24:00 05/23/2014 20:30:00 DIS Outpatient KOFI OLVERA FACC, BRADLY NIX CCDS [facility] CATH SHORTNESS OF BREATH CAD ABNORMAL STRESS TEST [id number] 05/08/2014 12:02:00 05/08/2014 23:59:59 CLS Outpatient KYLAH CREWS [facility] CARD CAD [id number] 02/13/2014 12:30:00 02/13/2014 14:00:00 DIS Emergency 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 [facility] FALL/BACK PAIN [id number] 02/09/2014 19:30:00 02/11/2014 10:45:00 DIS Inpatient LADONNA SALUGERO DO [facility] ACUTE COPD EXACERBATION [id number] 2014 11:48:00 2014 23:59:59 CLS Outpatient BYRON BOSS MD [facility] HTN,HYPERLIPADEIA [id number] 12/12/2013 06:44:00 12/12/2013 11:43:00 DIS Outpatient PATRICIA MCDONALD MD Via [facility] PAINFUL HARDWARE RIGHT ANKLE [id number] 12/05/2013 14:33:00 12/05/2013 23:59:59 CLS Outpatient PATRICIA MCDONALD MD [facility] PREOP PAINFUL HARDWARE RIGHT ANKLE [id number] 11/04/2013 12:22:00 11/04/2013 12:46:00 DIS Emergency MARLA EVERETT MD [facility] SUTURE REMOVAL [id number] 10/31/2013 10:42:00 10/31/2013 23:59:59 CLS Outpatient KYLAH CREWS [facility] CARD CAD,HTN [id number] 10/25/2013 08:26:00 10/25/2013 23:59:59 CLS Outpatient KYLAH CREWS [facility] CAD,HEART VALVE DISEASE,HTN,HYPERLIPIDEMIA,COPD [id number] 10/25/2013 18:12:00 10/25/2013 20:10:00 DIS Emergency HARDEEP DORANTES [facility] FOOT INJ [id number] 10/21/2013 06:02:00 10/22/2013 11:11:00 DIS Outpatient EDUARDO VILLEGAS MD [facility] INTRINSIC SPHINCTER DEFICIENCY; INCONTINENCE [id number] 10/17/2013 09:25:00 10/17/2013 23:59:59 CLS Outpatient EDUARDO VILLEGAS MD [facility] PREOP INTRINSIC SPHINCTER DEFICIENCY; INCONTINENCE [id number] 08/03/2013 06:00:00 08/03/2013 09:56:00 DIS Outpatient EDUARDO VILLEGAS MD Via [facility] INCONTINENCE [id number] 07/27/2013 12:35:00 07/27/2013 23:59:59 CLS Outpatient EDUARDO VILLEGAS MD [facility] PREOP INCONTINENCE [id number] 06/13/2013 14:57:00 06/13/2013 23:59:59 CLS Outpatient [id number] 04/18/2013 22:12:00 04/18/2013 23:34:00 DIS Emergency HUANGFELICIA Katz DO [facility] REACTION TO MEDICATION [id number] 04/17/2013 14:11:00 04/17/2013 15:42:00 DIS Emergency MARCO A VAN MD [facility] VOMITING BODY ACHES [id number] 03/03/2018 09:30:00 PEN Preadmit LEONEL ORTIZ MD [facility] ENDO DYSPHAGIA [id number] 03/26/2015 11:17:00 Document Registration [id number] 01/19/2013 18:23:00 Document Registration [id number] 01/01/2013 15:27:00 Document Registration [id number] 12/26/2012 14:21:00 Document Registration [id number] 11/11/2012 16:20:00 Document Registration [id number] 10/24/2012 23:40:00 Document Registration [id number] 09/19/2012 19:49:00 Document Registration [id number] 09/13/2012 10:47:00 Document Registration [id number] 09/08/2012 15:08:00 Document Registration [id number] 09/04/2012 17:10:00 Document Registration [id number] 06/12/2012 16:25:00 Document Registration [id number] 06/03/2012 10:41:00 Document Registration [id number] 04/16/2012 09:50:00 Document Registration [id number] 03/17/2012 10:58:00 Document Registration [id number] 03/08/2012 10:14:00 Document Registration [id number] 02/01/2012 18:50:00 Document Registration [id number] 01/28/2012 06:00:00 Document Registration [id number] 01/21/2012 09:31:00 Document Registration [id number] 11/11/2011 07:21:00 Document Registration [id number] 10/30/2011 08:09:00 Document Registration [id number] 10/27/2011 07:16:00 Document Registration [id number] 10/24/2011 12:36:00 Document Registration [id number] 10/19/2011 11:22:00 Document Registration [id number] 08/07/2011 10:17:00 Document Registration [id number] 07/14/2011 13:47:00 Document Registration [id number] 07/06/2011 18:30:00 Document Registration [id number] 03/19/2011 05:41:00 Document Registration [id number] 03/13/2011 12:47:00 Document Registration [id number] 02/12/2011 10:12:00 Document Registration [id number] 02/06/2011 08:14:00 Document Registration [id number] 01/22/2011 05:55:00 Document Registration [id number] 01/15/2011 10:27:00 Document Registration [id number] 11/08/2010 10:08:00 Document Registration [id number] 09/05/2010 05:48:00 Document Registration [id number] 09/04/2010 09:00:00 Document Registration [id number] 08/26/2010 07:15:00 Document Registration [id number] 08/07/2010 14:40:00 Document Registration [id number] 08/02/2010 08:36:00 Document Registration [id number] 05/26/2010 12:24:00 Document Registration [id number] 04/14/2010 17:58:00 Document Registration [id number] 03/08/2010 10:03:00 Document Registration [id number] 03/07/2010 09:13:00 Document Registration [id number] 02/21/2010 08:56:00 Document Registration [id number] 08/02/2009 18:35:00 Document Registration [id number] 07/30/2015 23:46:44 ACT Document Registration
[2018-03-03] MEDS ORDERED: NS IV 500 ML 500 ML IV PRN (09:29)
[2018-03-03] MEDS ORDERED: LIDOCAINE JELLY 2% (XYLOCAINE) 5 ML TUBE MM PRN (09:30)
[2018-03-03] MEDS ORDERED: HURRICAINE EXT TUBE (BENZOCAINE) XX PRN (09:30)
[2018-03-03 09:55] VITALS: BP 121/72
[2018-03-03] MEDS ORDERED: MIDAZOLAM 2 MG/2 ML (VERSED) VIAL ONE ×4 (10:18)
[2018-03-03] MEDS ORDERED: HURRICAINE EXT TUBE (BENZOCAINE) ONE (10:18)
[2018-03-03] MEDS ORDERED: fentaNYL INJECTION 100 MCG/2 ML AMP ONE (10:18)
[2018-03-03] MEDS ORDERED: LIDOCAINE JELLY 2% (XYLOCAINE) 5 ML TUBE ONE (10:18)
--- NOTE | 2018-03-03 10:21 | Conscious Sedation/ASA ---
Conscious Sedation Pre-Proced Time Reviewed: 10:00 ASA Class: 2 Airway Mallampati Classification: ([place] appropriate class) I. II. III, IV Lungs Heart ASA score ASA 1: a normal healthy patient ASA 2: a patient with a mild systemic disease (mid diabetes, controlled hypertension, obesity ASA 3: a patient with a severe systemic disease that limits activity (angina , COPD, prior Myocardial infarction) ASA 4: a patient with an incapacitating disease that is a constant threat to life (CHF, renal failure) ASA 5: a moribund patient not expected to survive 24 hrs. (ruptured aneurysm) ASA 6: a declared brain patient whose organs are being harvested. For emergent operations, add the letter E after the classification Grade 2 Sedation Plan: Analgesia, Amnesia, Plan communicated to team members, Discussed options with patient/fam, Discussed risks with patient/fam Note The patient is an appropriate candidate to undergo the planned procedure, sedation, and anesthesia. The patient immediately re-assessed prior to indication. LEONEL ORTIZ MD Mar 03, 2018 10:21 am
--- NOTE | 2018-03-03 10:22 | Progress Note-Pre Operative ---
Pre-Operative Progress Note H&P Reviewed The H&P was reviewed, patient examined and no changes noted. Date Seen by Provider: Mar 03, 2018 Time Seen by Provider: 10:00 Date H&P Reviewed: Mar 03, 2018 Time H&P Reviewed: 10:00 Pre-Operative Diagnosis: dysphagia LEONEL ORTIZ MD Mar 03, 2018 10:22 am
[2018-03-03] MEDS: fentaNYL INJECTION 100 MCG/2 ML AMP IVP PRN ×2 (10:25→10:30)
[2018-03-03] MEDS: MIDAZOLAM 2 MG/2 ML (VERSED) VIAL IVP PRN ×2 (10:26→10:31)
[2018-03-03] MEDS ORDERED: HYDROcodone/APAP 5 MG/325 MG (LORTAB) TAB PO PRN (10:30)
[2018-03-03] MEDS ORDERED: ONDANSETRON 4 MG/2 ML (SDV) Z0FRAN IV PRN (10:30)
[2018-03-03] MEDS ORDERED: morphine INJ 10 MG/ML 1ML (SYR OR VIAL) IV PRN (10:30)
[2018-03-03] MEDS ORDERED: ACETAMINOPHEN 325 MG TABLET/CAPLET (TYLENOL) PO PRN (10:30)
[2018-03-03 11:05] VITALS: BP 139/73
--- NOTE | 2018-03-03 11:06 | Progress Note-Post Operative ---
Post-Operative Progess Note Surgeon (s)/Generator Operator (s) Surgeon LEONEL ORTIZ MD Generator Operator: none Pre-Operative Diagnosis dysphagia Post-Operative Diagnosis reflux esophagitis(class B), distal esophageal, moderate gastritis. Procedure & Operative Findings Date of Procedure 03/03/18 Procedure Performed/Findings EGD with bx and balloon dilatation. Anesthesia Type CS Estimated Blood Loss Estimated blood loss (mL): minimal Specimens/Packing Specimens Removed GE jxn, antrum LEONEL ORTIZ MD Mar 03, 2018 11:06 am
--- NOTE | 2018-03-03 11:08 | Discharge Inst-Surgical ---
D/C Lap Instructions-ANGEL Follow Up PRN Activity as tolerated High Fiber Diet 25g or more per day Avoid Alcohol, Caffeine, Spicy [place] and Acid foods. Drink 64 fluid oz or more of fluids per day. Symptoms to Report: Fever over 101 degree F, Nausea/Vomiting If any problems/questions: Contact your physician or go to Emergency Room LEONEL ORTIZ MD Mar 03, 2018 11:08 am
[2018-03-03 11:35] VITALS: BP 106/88
[2018-03-03 11:50] VITALS: BP 106/88
--- NOTE | 2018-03-03 13:19 | OPERATIVE REPORT ---
DATE OF SERVICE: 03/03/2018 ATTENDING PRIMARY CARE PHYSICIAN: Dr. Grijalva. PREOPERATIVE DIAGNOSES: Recurrent dysphagia. POSTOPERATIVE DIAGNOSES: Reflux esophagitis class B with a distal esophageal stricture, small hiatal hernia 1 cm in size, moderate severity gastritis. PROCEDURE PERFORMED: Esophagogastroduodenoscopy with biopsy and balloon dilatation. SURGEON: Leonel Ortiz MD. ANESTHESIA: Conscious sedation. ESTIMATED BLOOD LOSS: Minimal. FINDINGS: Reflux esophagitis class B with a recurrent distal esophageal stricture, small hiatal hernia approximately 1 cm in size, moderate severity gastritis with no ulcers, polyps or any neoplasms. Pylorus and duodenum appeared normal. No distal obstructions. DISPOSITION: The patient tolerated the procedure well. INDICATIONS: The patient is a 53-year-old female known to us. She has had a history of difficulty swallowing and dysphagia, which has progressively worsened over time. She reports that she has had a longstanding history of gastroesophageal reflux disease, which progressed to regurgitation. She underwent an EGD in 2013, which did show a small hiatal hernia as well as a distal esophageal stricture. She has had recurrent symptoms with a substernal chest pressure that would persist after food bolus consistent with a recurrent stricture and dysphagia. DESCRIPTION OF PROCEDURE: The patient was brought to the endoscopy suite, laid in the left lateral decubitus position with head slightly elevated. After adequate IV pain and sedative medications and conscious sedation anesthesia, the mouthpiece was applied. The endoscope was placed in the mouth, visualizing the pharynx and hypopharyngeal region. Vocal cords, epiglottis and vallecula identified and appeared to be normal. The endoscope was then gently intubated at the esophageal opening and esophagus insufflated. Endoscope was then advanced to the first, second and third portion of the esophagus. At the level of the GE junction, a reflux esophagitis class B identified as well as a mild recurrent distal esophageal stricture. A biopsy was taken of the GE junction with forceps with visualization of good hemostasis. The endoscope was then advanced in the stomach and endoscope retroflexed, visualizing a small hiatal hernia approximately 1 cm in size as well as the esophageal stricture. A moderate severity gastritis was noted; however, there were no ulcers, polyps or any neoplasms identified. A biopsy was taken of the stomach antrum for H. pylori with visualization of good hemostasis. The endoscope was then advanced to the pylorus and the first and second portion of the duodenum, which appeared normal with no distal obstructions. We then proceeded with a balloon dilatation of the distal esophageal stricture. A CRE fixed guidewire balloon was placed into the stomach and pulled back to the area of stricture. We first proceeded with 3 atmospheres of pressure or 15 mm in diameter with no resistance. We then proceeded to 4.5 atmospheres of pressure, 16.5 mm in diameter with minimal resistance. We then proceeded to 7 atmospheres of pressure, 18 mm in diameter with mild to moderate resistance and left this in place for 60 seconds. The balloon was then desufflated and removed. There were no mucosal tears identified as well as no bleeding. The endoscope was then slowly withdrawn taking a second look and suctioning residual air with no additional findings. The patient tolerated the procedure well. We will recommend continued medical management with small more frequent meals, avoidance of eating at night as well as head elevation while lying supine. She also needs to proceed with smoking cessation. If she has recurrent dysphagia, we will have her followup and proceed with graded dilatation. Job ID: [id number] DocumentID: [id number] Dictated Date: 03/03/2018 10:56:14 Area Manager Date: 03/03/2018 13:18:26 Dictated By: LEONEL ORTIZ MD
== END 2018-03-03 11:50 | disposition home or self-care (01) ==
LOC: ENDO 09:01
PROVIDERS: ATTEND Surgery
DX: K21.0 Gastro-esophageal reflux disease with esophagitis (principal); K22.2 Esophageal obstruction; K44.9 Diaphragmatic hernia without obstruction or gangrene; K29.70 Gastritis, unspecified, without bleeding; I10 Essential (primary) hypertension; E78.00 Pure hypercholesterolemia, unspecified; E11.40 Type 2 diabetes mellitus with diabetic neuropathy, unspecified; F32.9 Major depressive disorder, single episode, unspecified; F17.210 Nicotine dependence, cigarettes, uncomplicated; Z88.1 Allergy status to other antibiotic agents; Z88.5 Allergy status to narcotic agent; Z88.6 Allergy status to analgesic agent; Z79.899 Other long term (current) drug therapy

== ENCOUNTER 2018-03-09 06:49 | Day surgery (SDC) | payer MEDICAID ==
[2018-03-09] VITALS (8 sets, daily range): BP systolic 112–142; BP diastolic 61–76
[~2018-03-09] VITALS: Ht 170.2 cm; Wt 81.6 kg
[~2018-03-09 06:49] MED LIST changes: +HEParin (CATH LAB) 2,000 ML IV ONE; +NS IV 1000 ML 1,000 ML ONE
--- OUTSIDE RECORDS SUMMARY | 2018-03-09 06:51 | XMS REPORT | Continuity of Care Document ---
Author Author [employer] Organization [facility] Address Unknown Phone Unavailable Care Team Providers Care Physician'S Aide Name Role Phone [employer] Unavailable Unavailable Problems Medications Allergies, Adverse Reactions, Alerts Immunizations Results Vital Signs Encounters Location Location Details Encounter Type Encounter Number Reason For Visit Attending Provider ADM Date DC Date Status Source OUTPATIENT [id number] [place] [place] 10/07/2016 10/07/2016 Active [facility] OP SURGERY [id number] KEYANA SANCHEZ Active [facility] O Active [facility] Procedures Plan of Care Social History Assessment and Plan Family History Advance Directives Functional Status
--- OUTSIDE RECORDS SUMMARY | 2018-03-09 06:51 | XMS REPORT | Clinical Summary ---
Author Author [facility] Organization [facility] Address Unknown Phone Unavailable Care Team Providers Care Bevel Mill Operator Name Role Phone Osvaldo Palafox DO Unavailable [...] in the Health Information Management department at [phone] for further assistance in locating additional records.[facility] Allergies Active Allergy Reactions Severity Noted [...] Durbin - referral to Dr. 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
--- OUTSIDE RECORDS SUMMARY | 2018-03-09 06:52 | XMS REPORT | Encounter Summary ---
Author Author [facility] Organization [facility] Address Unknown Phone Unavailable Care Team Providers Care Overnight Babysitter Name Role Phone Osvaldo Palafox DO Unavailable Hermila Durbin MD Unavailable Rishi Cartwright MD Unavailable Donell Haque PA-C Unavailable Lizet Parsons RN Unavailable Unavailable Kristofer Dowling MD Unavailable Unavailable Osvaldo Palafox DO PCP Reason for Visit * Reason Comments Medication Refill Encounter Details Date Type Department Care Team Description 12/30/2017 Refill [facility] Rishi Cartwright MD Physicians - Urology [address] [facility] 2ND FLOOR POD [address] [place] [address] [facility] [place] [address] OFFICE BLDG [phone] [place] [address] Social History Tobacco Use Types Packs/Day Years Used Date Current Every Day Smoker Cigarettes 0.5 30 Smokeless Tobacco: Never Used Alcohol Use Drinks/Week oz/Week Comments No Sex Assigned at Date Recorded Not on file as of this encounter Plan of Treatment Not on fileas of this encounter Visit Diagnoses Not on filein this encounter
[2018-03-09] MEDS ORDERED: NS IV 1000 ML 1,000 ML IV SCH ×2 (07:00→08:57)
--- OUTSIDE RECORDS SUMMARY | 2018-03-09 07:09 | XMS REPORT | Continuity of Care Document ---
Author Author [facility] Address Unknown Phone Unavailable Allergies [...] Drug Allergy N/A N/A 2014 Yes aspirin [id number] Drug Allergy Mild Nausea 02/19/2015 Yes codeine [id number] Drug Allergy Mild Nausea 02/19/2015 Yes tramadol [id number] Drug Allergy Mild N/V 07/16/2015 Yes Penicillins [id number] Drug Allergy Mild Hives 03/05/2016 Yes amlodipine besylate [id number] Drug Allergy Unknown N/A 03/05/2016 Yes benazepril HCl [id number] Drug Allergy Unknown N/A 03/05/2016 Yes Mtppgrh-Epi-Dwc Reductase Inhibitor [id number] Drug Allergy Unknown N/A 04/2016 Medications There [...] - Uncomplicated, Uncontrolled 06/27/2008 KARYN OLVERA, BYRON Brunre 250.02 Diabetes Mellitus Type Ii - Uncomplicated, [...] Type Ii - Uncomplicated, Uncontrolled 06/27/2008 MADMaxine [employer] EXPERT, ETELVINA L 250.02 Diabetes Mellitus Type Ii - Uncomplicated, Uncontrolled 06/27/2008 MADL AUTOMATION CONTROLS EXPERT, ETELVINA L 250.02 Diabetes Mellitus Type Ii - Uncomplicated, Uncontrolled 06/27/2008 MADL AUTOMATION CONTROLS EXPERT, ETELVINA L 250.02 Diabetes Mellitus Type Ii - Uncomplicated, Uncontrolled 06/27/2008 SALGUERO DO LADONNA K 250.02 Diabetes Mellitus Type Ii - Uncomplicated, Uncontrolled 06/27/2008 NOEMY PRAKASH LADONNA K 250.02 Diabetes Mellitus Type Ii - Uncomplicated, Uncontrolled 06/27/2008 MADMaxine AUTOMATION CONTROLS EXPERT, ETELVINA L 250.02 Diabetes Mellitus Type Ii - Uncomplicated, Uncontrolled 06/27/2008 MADL AUTOMATION CONTROLS EXPERT, ETELVINA L 250.02 Diabetes Mellitus Type Ii - Uncomplicated, Uncontrolled 06/27/2008 MADL AUTOMATION CONTROLS EXPERT, ETELVINA L 250.02 Diabetes Mellitus Type Ii - Uncomplicated, Uncontrolled 06/27/2008 MADL AUTOMATION CONTROLS EXPERT, ETELVINA L 250.02 Diabetes Mellitus Type Ii - Uncomplicated, Uncontrolled 06/27/2008 MADL AUTOMATION CONTROLS EXPERT, ETELVINA L 250.02 Diabetes Mellitus Type Ii - Uncomplicated, Uncontrolled 06/27/2008 MADL AUTOMATION CONTROLS EXPERT, ETELVINA L 250.02 Diabetes Mellitus Type Ii - Uncomplicated, Uncontrolled 06/27/2008 MADL AUTOMATION CONTROLS EXPERT, ETELVINA L 250.02 Diabetes Mellitus Type Ii - Uncomplicated, Uncontrolled 06/27/2008 SALGUERO DO, LADONNA K 250.02 Diabetes Mellitus Type Ii - Uncomplicated, Uncontrolled 06/27/2008 SALGUERO DO, LADONNA K 250.02 Diabetes Mellitus Type Ii - Uncomplicated, Uncontrolled 06/27/2008 MADL AUTOMATION CONTROLS EXPERT, ETELVINA L 250.02 Diabetes Mellitus Type Ii - Uncomplicated, Uncontrolled 06/27/2008 SALGUERO DO, LADONNA K 250.02 Diabetes Mellitus Type Ii - Uncomplicated, Uncontrolled 06/27/2008 MADL AUTOMATION CONTROLS EXPERT, ETELVINA L 250.02 Diabetes Mellitus Type Ii [...] DO, LADONNA K 250.00 DIABETES MELLITUS 09/27/2008 SALGUREO DO, LADONNA K 401.1 ESSENTIAL HYPERTENSION BENIGN 09/27/2008 SALGUERO DO, LADONNA K 250.00 DIABETES MELLITUS 09/27/2008 SALGUERO DO, LADONNA K 401.1 ESSENTIAL HYPERTENSION BENIGN 09/27/2008 MADL AUTOMATION CONTROLS EXPERT, ETELVINA L 250.00 DIABETES MELLITUS 09/27/2008 MADL AUTOMATION CONTROLS EXPERT, ETELVINA L 401.1 ESSENTIAL HYPERTENSION BENIGN 09/27/2008 MADL AUTOMATION CONTROLS EXPERT, ETELVINA L 250.00 DIABETES MELLITUS 09/27/2008 MADL AUTOMATION CONTROLS EXPERT, ETELVINA L 401.1 ESSENTIAL HYPERTENSION BENIGN 09/27/2008 MADL AUTOMATION CONTROLS EXPERT, ETELVINA L 250.00 DIABETES MELLITUS 09/27/2008 MADL AUTOMATION CONTROLS EXPERT, ETELVINA L 401.1 ESSENTIAL HYPERTENSION BENIGN 09/27/2008 SALGUERO DO, LADONNA K 250.00 DIABETES MELLITUS 09/27/2008 SALGUERO DO, LADONNA K 401.1 ESSENTIAL HYPERTENSION BENIGN 09/27/2008 SALGUERO DO, LADONNA K 250.00 DIABETES MELLITUS 09/27/2008 SALGUERO DO, LADONNA K 401.1 ESSENTIAL HYPERTENSION BENIGN 09/27/2008 MADL AUTOMATION CONTROLS EXPERT, ETELVINA L 250.00 DIABETES MELLITUS 09/27/2008 MADL AUTOMATION CONTROLS EXPERT, ETELVINA L 401.1 ESSENTIAL HYPERTENSION BENIGN 09/27/2008 MADL AUTOMATION CONTROLS EXPERT, ETELVINA L 250.00 DIABETES MELLITUS 09/27/2008 MADL AUTOMATION CONTROLS EXPERT, ETELVINA L 401.1 ESSENTIAL HYPERTENSION BENIGN 09/27/2008 MADL AUTOMATION CONTROLS EXPERT, ETELVINA L 250.00 DIABETES MELLITUS 09/27/2008 MADL AUTOMATION CONTROLS EXPERT, ETELVINA L 401.1 ESSENTIAL HYPERTENSION BENIGN 09/27/2008 MADL AUTOMATION CONTROLS EXPERT, ETELVINA L 250.00 DIABETES MELLITUS 09/27/2008 MADL AUTOMATION CONTROLS EXPERT, ETELVINA L 401.1 ESSENTIAL HYPERTENSION BENIGN 09/27/2008 MADL AUTOMATION CONTROLS EXPERT, ETELVINA L 250.00 DIABETES MELLITUS 09/27/2008 MADL AUTOMATION CONTROLS EXPERT, ETELVINA L 401.1 ESSENTIAL HYPERTENSION BENIGN 09/27/2008 MADL AUTOMATION CONTROLS EXPERT, ETELVINA L 250.00 DIABETES MELLITUS 09/27/2008 MADL AUTOMATION CONTROLS EXPERT, ETELVINA L 401.1 ESSENTIAL HYPERTENSION BENIGN 09/27/2008 MADL AUTOMATION CONTROLS EXPERT, ETELVINA L 250.00 DIABETES MELLITUS 09/27/2008 MADL AUTOMATION CONTROLS EXPERT, ETELVINA L 401.1 ESSENTIAL HYPERTENSION BENIGN 09/27/2008 SALGUERO DO, LADONNA K 250.00 DIABETES MELLITUS 09/27/2008 SALGUERO DO, LADONNA K 401.1 ESSENTIAL HYPERTENSION BENIGN 09/27/2008 SALGUERO DO, LADONNA K 250.00 DIABETES MELLITUS 09/27/2008 SALGUERO DO, LADONNA K 401.1 ESSENTIAL HYPERTENSION BENIGN 09/27/2008 MADL AUTOMATION CONTROLS EXPERT, ETELVINA L 250.00 DIABETES MELLITUS 09/27/2008 MADL AUTOMATION CONTROLS EXPERT, ETELVINA L 401.1 ESSENTIAL HYPERTENSION BENIGN 09/27/2008 SALGUERO DO, LADONNA K 250.00 DIABETES MELLITUS 09/27/2008 TERE SALGUERO DOA K 401.1 ESSENTIAL HYPERTENSION BENIGN 09/27/2008 MADL AUTOMATION CONTROLS EXPERT, ETELVINA L 250.00 DIABETES MELLITUS 09/27/2008 MADL AUTOMATION CONTROLS EXPERT, ETELVINA L 401.1 ESSENTIAL HYPERTENSION BENIGN 11/01/2008 [...] In Joint Involving Lower Leg 11/01/2008 MADL AUTOMATION CONTROLS EXPERT, ETELVINA L 719.46 Pain In Joint Involving Lower Leg 11/01/2008 MADL AUTOMATION CONTROLS EXPERT, ETELVINA L 719.46 Pain In Joint Involving Lower Leg 11/01/2008 MADL AUTOMATION CONTROLS EXPERT, ETELVINA L 719.46 Pain In Joint Involving Lower Leg 11/01/2008 NOEMY DOLADONNA K 719.46 Pain In Joint Involving Lower Leg 11/01/2008 LADONNA SALGUERO DO K 719.46 Pain In Joint Involving Lower Leg 11/01/2008 MADL AUTOMATION CONTROLS EXPERT, ETELVINA L 719.46 Pain In Joint Involving Lower Leg 11/01/2008 MADL AUTOMATION CONTROLS EXPERT, ETELVINA L 719.46 Pain In Joint Involving Lower Leg 11/01/2008 MADL AUTOMATION CONTROLS EXPERT, ETELVINA L 719.46 Pain In Joint Involving Lower Leg 11/01/2008 MADL AUTOMATION CONTROLS EXPERT, ETELVINA L 719.46 Pain In Joint Involving Lower Leg 11/01/2008 MADL AUTOMATION CONTROLS EXPERT, ETELVINA L 719.46 Pain In Joint Involving Lower Leg 11/01/2008 MADL AUTOMATION CONTROLS EXPERT, ETELVINA L 719.46 Pain In Joint Involving Lower Leg 11/01/2008 MADL AUTOMATION CONTROLS EXPERT, ETELVINA L 719.46 Pain In Joint Involving Lower Leg 11/01/2008 NOEMY DOLADONNA K 719.46 Pain In Joint Involving Lower Leg 11/01/2008 LADONNA SALGUERO DO K 719.46 Pain In Joint Involving Lower Leg 11/01/2008 MADL AUTOMATION CONTROLS EXPERT, ETELVINA L 719.46 Pain In Joint Involving Lower Leg 11/01/2008 NOEMY DOLADONNA K 719.46 Pain In Joint Involving Lower Leg 11/01/2008 MADL AUTOMATION CONTROLS EXPERT, ETELVINA L 719.46 Pain In Joint Involving [...] K 728.85 Spasm Of Muscle 12/12/2008 MADL AUTOMATION CONTROLS EXPERT, ETELVINA L 496 CHRONIC OBSTRUCTIVE PULMONARY DISEASE 12/12/2008 MADL AUTOMATION CONTROLS EXPERT, ETELVINA L 728.85 Spasm Of Muscle 12/12/2008 MADL AUTOMATION CONTROLS EXPERT, ETELVINA L 496 CHRONIC OBSTRUCTIVE PULMONARY DISEASE 12/12/2008 MADL AUTOMATION CONTROLS EXPERT, ETELVINA L 728.85 Spasm Of Muscle 12/12/2008 MADL AUTOMATION CONTROLS EXPERT, ETELVINA L 496 CHRONIC OBSTRUCTIVE PULMONARY DISEASE 12/12/2008 MADL AUTOMATION CONTROLS EXPERT, ETELVINA L 728.85 Spasm Of Muscle 12/12/2008 SALGUERO DO, LADONNA K 496 CHRONIC OBSTRUCTIVE PULMONARY DISEASE 12/12/2008 SALGUERO DO, LADONNA K 728.85 Spasm Of Muscle 12/12/2008 SALGUERO DO, LADONNA K 496 CHRONIC OBSTRUCTIVE PULMONARY DISEASE 12/12/2008 SALGUERO DO, LADONNA K 728.85 Spasm Of Muscle 12/12/2008 MADL AUTOMATION CONTROLS EXPERT, ETELVINA L 496 CHRONIC OBSTRUCTIVE PULMONARY DISEASE 12/12/2008 MADL AUTOMATION CONTROLS EXPERT, ETELVINA L 728.85 Spasm Of Muscle 12/12/2008 MADL AUTOMATION CONTROLS EXPERT, ETELVINA L 496 CHRONIC OBSTRUCTIVE PULMONARY DISEASE 12/12/2008 MADL AUTOMATION CONTROLS EXPERT, ETELVINA L 728.85 Spasm Of Muscle 12/12/2008 MADL AUTOMATION CONTROLS EXPERT, ETELVINA L 496 CHRONIC OBSTRUCTIVE PULMONARY DISEASE 12/12/2008 MADL AUTOMATION CONTROLS EXPERT, ETELVINA L 728.85 Spasm Of Muscle 12/12/2008 MADL AUTOMATION CONTROLS EXPERT, ETELVINA L 496 CHRONIC OBSTRUCTIVE PULMONARY DISEASE 12/12/2008 MADL AUTOMATION CONTROLS EXPERT, ETELVINA L 728.85 Spasm Of Muscle 12/12/2008 MADL AUTOMATION CONTROLS EXPERT, ETELVINA L 496 CHRONIC OBSTRUCTIVE PULMONARY DISEASE 12/12/2008 MADL AUTOMATION CONTROLS EXPERT, ETELVINA L 728.85 Spasm Of Muscle 12/12/2008 MADL AUTOMATION CONTROLS EXPERT, ETELVINA L 496 CHRONIC OBSTRUCTIVE PULMONARY DISEASE 12/12/2008 MADL AUTOMATION CONTROLS EXPERT, ETELVINA L 728.85 Spasm Of Muscle 12/12/2008 MADL AUTOMATION CONTROLS EXPERT, ETELVINA L 496 CHRONIC OBSTRUCTIVE PULMONARY DISEASE 12/12/2008 MADL AUTOMATION CONTROLS EXPERT, ETELVINA L 728.85 Spasm Of Muscle 12/12/2008 SALGUERO DO, LADONNA K 496 CHRONIC OBSTRUCTIVE PULMONARY DISEASE 12/12/2008 SALGUERO DO, LADONNA K 728.85 Spasm Of Muscle 12/12/2008 SALGUERO DO, LADONNA K 496 CHRONIC OBSTRUCTIVE PULMONARY DISEASE 12/12/2008 SALGUERO DO, LADONNA K 728.85 Spasm Of Muscle 12/12/2008 MADL AUTOMATION CONTROLS EXPERT, ETELVINA L 496 CHRONIC OBSTRUCTIVE PULMONARY DISEASE 12/12/2008 MADL AUTOMATION CONTROLS EXPERT, ETELVINA L 728.85 Spasm Of Muscle 12/12/2008 SALGUERO DO, LADONNA K 496 CHRONIC OBSTRUCTIVE PULMONARY DISEASE 12/12/2008 SALGUERO DO, LADONNA K 728.85 Spasm Of Muscle 12/12/2008 MADL AUTOMATION CONTROLS EXPERT, ETELVINA L 496 CHRONIC OBSTRUCTIVE PULMONARY DISEASE 12/12/2008 MADL AUTOMATION CONTROLS EXPERT, ETELVINA L 728.85 Spasm Of Muscle 01/11/2009 [...] 786.50 Chest Pain Or Discomfort 01/11/2009 MADL AUTOMATION CONTROLS EXPERT, ETELVINA L 786.50 Chest Pain Or Discomfort 01/11/2009 MADL AUTOMATION CONTROLS EXPERT, ETELVINA L 786.50 Chest Pain Or Discomfort 01/11/2009 MADL AUTOMATION CONTROLS EXPERT, ETELVINA L 786.50 Chest Pain Or Discomfort 01/11/2009 SALGUERO DO, LADONNA K 786.50 Chest Pain Or Discomfort 01/11/2009 SALGUERO DO, LADONNA K 786.50 Chest Pain Or Discomfort 01/11/2009 MADL AUTOMATION CONTROLS EXPERT, ETELVINA L 786.50 Chest Pain Or Discomfort 01/11/2009 MADL AUTOMATION CONTROLS EXPERT, ETELVINA L 786.50 Chest Pain Or Discomfort 01/11/2009 MADL AUTOMATION CONTROLS EXPERT, ETELVINA L 786.50 Chest Pain Or Discomfort 01/11/2009 MADL AUTOMATION CONTROLS EXPERT, ETELVINA L 786.50 Chest Pain Or Discomfort 01/11/2009 MADL AUTOMATION CONTROLS EXPERT, ETELVINA L 786.50 Chest Pain Or Discomfort 01/11/2009 MADL AUTOMATION CONTROLS EXPERT, ETELVINA L 786.50 Chest Pain Or Discomfort 01/11/2009 MADL AUTOMATION CONTROLS EXPERT, ETELVINA L 786.50 Chest Pain Or Discomfort 01/11/2009 SALGUERO DO, LADONNA K 786.50 Chest Pain Or Discomfort 01/11/2009 SALGUERO DO, LADONNA K 786.50 Chest Pain Or Discomfort 01/11/2009 MADL AUTOMATION CONTROLS EXPERT, ETELVINA L 786.50 Chest Pain Or Discomfort 01/11/2009 SALGUERO DO, LADONNA K 786.50 Chest Pain Or Discomfort 01/11/2009 MADL AUTOMATION CONTROLS EXPERT, ETELVINA L 786.50 Chest Pain Or Discomfort 02/20/2009 MORGAN AUTOMATION CONTROLS EXPERT, LAURIE S 709.9 Dermatology - Skin Condition 02/20/2009 709.9 Dermatology - Skin Condition 02/20/2009 MORGAN AUTOMATION CONTROLS EXPERT, LAURIE S 709.9 Dermatology - Skin Condition 02/20/2009 MORGAN AUTOMATION CONTROLS EXPERT, LAURIE S 709.9 Dermatology - Skin Condition [...] 709.9 Dermatology - Skin Condition 02/20/2009 MADL AUTOMATION CONTROLS EXPERT, ETELVINA L 709.9 Dermatology - Skin Condition 02/20/2009 MADL AUTOMATION CONTROLS EXPERT, ETELVINA L 709.9 Dermatology - Skin Condition 02/20/2009 MADL AUTOMATION CONTROLS EXPERT, ETELVINA L 709.9 Dermatology - Skin Condition 02/20/2009 SALGUERO DO, LADONNA K 709.9 Dermatology - Skin Condition 02/20/2009 SALGUERO DO, LADONNA K 709.9 Dermatology - Skin Condition 02/20/2009 MADL AUTOMATION CONTROLS EXPERT, ETELVINA L 709.9 Dermatology - Skin Condition 02/20/2009 MADL AUTOMATION CONTROLS EXPERT, ETELVINA L 709.9 Dermatology - Skin Condition 02/20/2009 MADL AUTOMATION CONTROLS EXPERT, ETELVINA L 709.9 Dermatology - Skin Condition 02/20/2009 MADL AUTOMATION CONTROLS EXPERT, ETELVINA L 709.9 Dermatology - Skin Condition 02/20/2009 MADL AUTOMATION CONTROLS EXPERT, ETELVINA L 709.9 Dermatology - Skin Condition 02/20/2009 MADL AUTOMATION CONTROLS EXPERT, ETELVINA L 709.9 Dermatology - Skin Condition 02/20/2009 MADL AUTOMATION CONTROLS EXPERT, ETELVINA L 709.9 Dermatology - Skin Condition 02/20/2009 SALGUERO DO, LADONNA K 709.9 Dermatology - Skin Condition 02/20/2009 SALGUERO DO, LADONNA K 709.9 Dermatology - Skin Condition 02/20/2009 MADL AUTOMATION CONTROLS EXPERT, ETELVINA L 709.9 Dermatology - Skin Condition 02/20/2009 SALGUERO DO, LADONNA K 709.9 Dermatology - Skin Condition 02/20/2009 MADL AUTOMATION CONTROLS EXPERT, ETELVINA L 709.9 Dermatology - Skin Condition [...] Disorders Of Function Of Stomach 04/05/2009 MADL AUTOMATION CONTROLS EXPERT, ETELVINA L 536.8 Dyspepsia And Other Specified Disorders Of Function Of Stomach 04/05/2009 MADL AUTOMATION CONTROLS EXPERT, ETELVINA L 536.8 Dyspepsia And Other Specified Disorders Of Function Of Stomach 04/05/2009 MADL AUTOMATION CONTROLS EXPERT, ETELVINA L 536.8 Dyspepsia And Other Specified Disorders Of Function Of Stomach 04/05/2009 SALGUERO DO, LADONNA K 536.8 Dyspepsia And Other Specified Disorders Of Function Of Stomach 04/05/2009 SALGUERO DO, LADONNA K 536.8 Dyspepsia And Other Specified Disorders Of Function Of Stomach 04/05/2009 MADL AUTOMATION CONTROLS EXPERT ETELVINA L 536.8 Dyspepsia And Other Specified Disorders Of Function Of Stomach 04/05/2009 MADL AUTOMATION CONTROLS EXPERT, ETELVINA L 536.8 Dyspepsia And Other Specified Disorders Of Function Of Stomach 04/05/2009 MADL AUTOMATION CONTROLS EXPERT, ETELVINA L 536.8 Dyspepsia And Other Specified Disorders Of Function Of Stomach 04/05/2009 MADL AUTOMATION CONTROLS EXPERT, ETELVINA L 536.8 Dyspepsia And Other Specified Disorders Of Function Of Stomach 04/05/2009 MADL AUTOMATION CONTROLS EXPERT, ETELVINA L 536.8 Dyspepsia And Other Specified Disorders Of Function Of Stomach 04/05/2009 MADL AUTOMATION CONTROLS EXPERT, ETELVINA L 536.8 Dyspepsia And Other Specified Disorders Of Function Of Stomach 04/05/2009 MADL AUTOMATION CONTROLS EXPERT, ETELVINA L 536.8 Dyspepsia And Other Specified Disorders Of Function Of Stomach 04/05/2009 SALGUERO DO, LADONNA K 536.8 Dyspepsia And Other Specified Disorders Of Function Of Stomach 04/05/2009 SALGUERO DO, ALDONNA K 536.8 Dyspepsia And Other Specified Disorders Of Function Of Stomach 04/05/2009 MADL AUTOMATION CONTROLS EXPERT, ETELVINA L 536.8 Dyspepsia And Other Specified Disorders Of Function Of Stomach 04/05/2009 SALGUERO DO, LADONNA K 536.8 Dyspepsia And Other Specified Disorders Of Function Of Stomach 04/05/2009 MADL AUTOMATION CONTROLS EXPERT, ETELVINA L 536.8 Dyspepsia And Other Specified [...] DO, LADONNA K 787.02 Nausea 05/09/2009 MADL AUTOMATION CONTROLS EXPERT, ETELVINA L 327.52 Organic Sleep-related Leg Cramps 05/09/2009 MADL AUTOMATION CONTROLS EXPERT, ETELVINA L 787.02 Nausea 05/09/2009 MADL AUTOMATION CONTROLS EXPERT, ETELVINA L 327.52 Organic Sleep-related Leg Cramps 05/09/2009 MADL AUTOMATION CONTROLS EXPERT, ETELVINA L 787.02 Nausea 05/09/2009 MADL AUTOMATION CONTROLS EXPERT, ETELVINA L 327.52 Organic Sleep-related Leg Cramps 05/09/2009 MADL AUTOMATION CONTROLS EXPERT, ETELVINA L 787.02 Nausea 05/09/2009 SALGUERO DO, LADONNA K 327.52 Organic Sleep-related Leg Cramps 05/09/2009 SALGUERO DO, LADONNA K 787.02 Nausea 05/09/2009 SALGUERO DO, LADONNA K 327.52 Organic Sleep-related Leg Cramps 05/09/2009 SALGUERO DO, LADONNA K 787.02 Nausea 05/09/2009 MADL AUTOMATION CONTROLS EXPERT, ETELVINA L 327.52 Organic Sleep-related Leg Cramps 05/09/2009 MADL AUTOMATION CONTROLS EXPERT, ETELVINA L 787.02 Nausea 05/09/2009 MADL AUTOMATION CONTROLS EXPERT, ETELVINA L 327.52 Organic Sleep-related Leg Cramps 05/09/2009 MADL AUTOMATION CONTROLS EXPERT, ETELVINA L 787.02 Nausea 05/09/2009 MADL AUTOMATION CONTROLS EXPERT, ETELVINA L 327.52 Organic Sleep-related Leg Cramps 05/09/2009 MADL AUTOMATION CONTROLS EXPERT, ETELVINA L 787.02 Nausea 05/09/2009 MADL AUTOMATION CONTROLS EXPERT, ETELVINA L 327.52 Organic Sleep-related Leg Cramps 05/09/2009 MADL AUTOMATION CONTROLS EXPERT, ETELVINA L 787.02 Nausea 05/09/2009 MADL AUTOMATION CONTROLS EXPERT, ETELVINA L 327.52 Organic Sleep-related Leg Cramps 05/09/2009 MADL AUTOMATION CONTROLS EXPERT, ETELVINA L 787.02 Nausea 05/09/2009 MADL AUTOMATION CONTROLS EXPERT, ETELVINA L 327.52 Organic Sleep-related Leg Cramps 05/09/2009 MADL AUTOMATION CONTROLS EXPERT, ETELVINA L 787.02 Nausea 05/09/2009 MADL AUTOMATION CONTROLS EXPERT, ETELVINA L 327.52 Organic Sleep-related Leg Cramps 05/09/2009 MADL AUTOMATION CONTROLS EXPERT, ETELVINA L 787.02 Nausea 05/09/2009 SALGUERO DO, LADONNA K 327.52 Organic Sleep-related Leg Cramps 05/09/2009 SALGUERO DO, LADONNA K 787.02 Nausea 05/09/2009 SALGUERO DO, LADONNA K 327.52 Organic Sleep-related Leg Cramps 05/09/2009 SALGUERO DO, LADONNA K 787.02 Nausea 05/09/2009 MADL AUTOMATION CONTROLS EXPERT, ETELVINA L 327.52 Organic Sleep-related Leg Cramps 05/09/2009 MADL AUTOMATION CONTROLS EXPERT, ETELVINA L 787.02 Nausea 05/09/2009 SALGUERO DO, LADONNA K 327.52 Organic Sleep-related Leg Cramps 05/09/2009 SALGUERO DO, LADONNA K 787.02 Nausea 05/09/2009 MADL AUTOMATION CONTROLS EXPERT, ETELVINA L 327.52 Organic Sleep-related Leg Cramps 05/09/2009 MADL AUTOMATION CONTROLS EXPERT, ETELVINA L 787.02 Nausea 07/02/2009 LAURIE MORA [...] K 780.4 Dizziness And Giddiness 07/02/2009 MADL AUTOMATION CONTROLS EXPERT, ETELVINA L 465.9 Acute Upper Respiratory Infections Of Unspecified Site 07/02/2009 MADL AUTOMATION CONTROLS EXPERT, ETELVINA L 780.4 Dizziness And Giddiness 07/02/2009 MADL AUTOMATION CONTROLS EXPERT, ETELVINA L 465.9 Acute Upper Respiratory Infections Of Unspecified Site 07/02/2009 MADL AUTOMATION CONTROLS EXPERT, ETELVINA L 780.4 Dizziness And Giddiness 07/02/2009 MADL AUTOMATION CONTROLS EXPERT, ETELVINA L 465.9 Acute Upper Respiratory Infections Of Unspecified Site 07/02/2009 MADL AUTOMATION CONTROLS EXPERT, ETELVINA L 780.4 Dizziness And Giddiness 07/02/2009 SALGUERO DO, LADONNA K 465.9 Acute Upper Respiratory Infections Of Unspecified Site 07/02/2009 SALGUERO DO, LADONNA K 780.4 Dizziness And Giddiness 07/02/2009 SALGUERO DO, LADONNA K 465.9 Acute Upper Respiratory Infections Of Unspecified Site 07/02/2009 SALGUERO DO, LADONNA K 780.4 Dizziness And Giddiness 07/02/2009 MADL AUTOMATION CONTROLS EXPERT, ETELVINA L 465.9 Acute Upper Respiratory Infections Of Unspecified Site 07/02/2009 MADL AUTOMATION CONTROLS EXPERT, ETELVINA L 780.4 Dizziness And Giddiness 07/02/2009 MADL AUTOMATION CONTROLS EXPERT, ETELVINA L 465.9 Acute Upper Respiratory Infections Of Unspecified Site 07/02/2009 MADL AUTOMATION CONTROLS EXPERT, ETELVINA L 780.4 Dizziness And Giddiness 07/02/2009 MADL AUTOMATION CONTROLS EXPERT, ETELVINA L 465.9 Acute Upper Respiratory Infections Of Unspecified Site 07/02/2009 MADL AUTOMATION CONTROLS EXPERT, ETELVINA L 780.4 Dizziness And Giddiness 07/02/2009 MADL AUTOMATION CONTROLS EXPERT, ETELVINA L 465.9 Acute Upper Respiratory Infections Of Unspecified Site 07/02/2009 MADL AUTOMATION CONTROLS EXPERT, ETELVINA L 780.4 Dizziness And Giddiness 07/02/2009 MADL AUTOMATION CONTROLS EXPERT, ETELVINA L 465.9 Acute Upper Respiratory Infections Of Unspecified Site 07/02/2009 MADL AUTOMATION CONTROLS EXPERT, ETELVINA L 780.4 Dizziness And Giddiness 07/02/2009 MADL AUTOMATION CONTROLS EXPERT, ETELVINA L 465.9 Acute Upper Respiratory Infections Of Unspecified Site 07/02/2009 MADL AUTOMATION CONTROLS EXPERT, ETELVINA L 780.4 Dizziness And Giddiness 07/02/2009 MADL AUTOMATION CONTROLS EXPERT, ETELVINA L 465.9 Acute Upper Respiratory Infections Of Unspecified Site 07/02/2009 MADL AUTOMATION CONTROLS EXPERT, ETELVINA L 780.4 Dizziness And Giddiness 07/02/2009 SALGUERO DO, LADONNA K 465.9 Acute Upper Respiratory Infections Of Unspecified Site 07/02/2009 SALGUERO DO, LADONNA K 780.4 Dizziness And Giddiness 07/02/2009 SALGUERO DO, LADONNA K 465.9 Acute Upper Respiratory Infections Of Unspecified Site 07/02/2009 SALGUERO DO, LADONNA K 780.4 Dizziness And Giddiness 07/02/2009 MADL AUTOMATION CONTROLS EXPERT, ETELVINA L 465.9 Acute Upper Respiratory Infections Of Unspecified Site 07/02/2009 MADL AUTOMATION CONTROLS EXPERT, ETELVINA L 780.4 Dizziness And Giddiness 07/02/2009 SALGUERO DO, LADONNA K 465.9 Acute Upper Respiratory Infections Of Unspecified Site 07/02/2009 SALGUERO DO, LADONNA K 780.4 Dizziness And Giddiness 07/02/2009 MADL AUTOMATION CONTROLS EXPERT, ETELVINA L 465.9 Acute Upper Respiratory Infections Of Unspecified Site 07/02/2009 MADL AUTOMATION CONTROLS EXPERT, ETELVINA L 780.4 Dizziness And Giddiness 08/10/2009 MORGAN AUTOMATION CONTROLS EXPERT, LAURIE S 780.52 INSOMNIA UNSPECIFIED 08/10/2009 MORGAN AUTOMATION CONTROLS EXPERT, LAURIE S 783.1 Abnormal Weight Gain 08/10/2009 780.52 Insomnia Unspecified 08/10/2009 783.1 Abnormal Weight Gain 08/10/2009 MORGAN AUTOMATION CONTROLS EXPERT, LAURIE S 780.52 Insomnia Unspecified 08/10/2009 MORGAN AUTOMATION CONTROLS EXPERT, LAURIE S 783.1 Abnormal Weight Gain 08/10/2009 MORGAN AUTOMATION CONTROLS EXPERT, LAURIE S 780.52 Insomnia Unspecified 08/10/2009 MORGAN AUTOMATION CONTROLS EXPERT, LAURIE S 783.1 Abnormal Weight Gain 08/10/2009 [...] K 783.1 Abnormal Weight Gain 08/10/2009 MADL AUTOMATION CONTROLS EXPERT, ETELVINA L 780.52 Insomnia Unspecified 08/10/2009 [employer] EXPERT, ETELVINA L 783.1 Abnormal Weight Gain 08/10/2009 [employer] EXPERT, ETELVINA L 780.52 Insomnia Unspecified 08/10/2009 [employer] EXPERT, ETELVINA L 783.1 Abnormal Weight Gain 08/10/2009 [employer] EXPERT, ETELVINA L 780.52 Insomnia Unspecified 08/10/2009 [employer] EXPERT, ETELVINA L 783.1 Abnormal Weight Gain 08/10/2009 SALGUERO DO, LADONNA K 780.52 Insomnia Unspecified 08/10/2009 SALGUERO DO, LADONNA K 783.1 Abnormal Weight Gain 08/10/2009 SALGUERO DO, LADONNA K 780.52 Insomnia Unspecified 08/10/2009 SALGUERO DO, LADONNA K 783.1 Abnormal Weight Gain 08/10/2009 [employer] EXPERT, ETELVINA L 780.52 Insomnia Unspecified 08/10/2009 [employer] EXPERT, ETELVINA L 783.1 Abnormal Weight Gain 08/10/2009 [employer] EXPERT, ETELVINA L 780.52 Insomnia Unspecified 08/10/2009 [employer] EXPERT, ETELVINA L 783.1 Abnormal Weight Gain 08/10/2009 [employer] EXPERT, ETELVINA L 780.52 Insomnia Unspecified 08/10/2009 [employer] EXPERT, ETELVINA L 783.1 Abnormal Weight Gain 08/10/2009 [employer] EXPERT, ETELVINA L 780.52 Insomnia Unspecified 08/10/2009 [employer] EXPERT, ETELVINA L 783.1 Abnormal Weight Gain 08/10/2009 [employer] EXPERT, ETELVINA L 780.52 Insomnia Unspecified 08/10/2009 [employer] EXPERT, ETELVINA L 783.1 Abnormal Weight Gain 08/10/2009 [employer] EXPERT, ETELIVNA L 780.52 Insomnia Unspecified 08/10/2009 [employer] EX[employer], ETELVINA L 783.1 Abnormal Weight Gain 08/10/2009 [employer] EX[employer], ETELVINA L 780.52 Insomnia Unspecified 08/10/2009 [employer] EXPERT, ETELVINA L 783.1 Abnormal Weight Gain 08/10/2009 SALGUERO DO, LADONNA K 780.52 Insomnia Unspecified 08/10/2009 SALGUERO DO, LADONNA K 783.1 Abnormal Weight Gain 08/10/2009 SALGUERO DO, LADONNA K 780.52 Insomnia Unspecified 08/10/2009 SALGUERO DO, LADONNA K 783.1 Abnormal Weight Gain 08/10/2009 [employer] EX[employer], ETELVINA L 780.52 Insomnia Unspecified 08/10/2009 [employer] EXPERT, ETELVINA L 783.1 Abnormal Weight Gain 08/10/2009 SALGUERO DO, LADONNA K 780.52 Insomnia Unspecified 08/10/2009 SALGUERO DO, LADONNA K 783.1 Abnormal Weight Gain 08/10/2009 [employer] EXPERT, ETELVINA L 780.52 Insomnia Unspecified 08/10/2009 [employer] EXPERT, ETELVINA L 783.1 Abnormal Weight Gain 09/04/2009 LAURIE MORA APRN S 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 09/04/2009 LAURIE MORA APRN S 780.79 Feelings Of Weakness 09/04/2009 LAURIE MORA APRN S 786.05 shortness of breath 09/04/2009 LAURIE MORA APRN S 786.2 Cough 09/04/2009 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 09/04/2009 780.79 Feelings Of Weakness 09/04/2009 786.05 Shortness Of Breath 09/04/2009 786.2 Cough 09/04/2009 MORGAN AUTOMATION CONTROLS EXPERTPALOMA BowserNDA S 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 09/04/2009 MORGAN [employer] EXPERT, LAURIE S 780.79 Feelings Of Weakness 09/04/2009 MORGAN [employer] EXPERT, LAURIE S 786.05 Shortness Of Breath 09/04/2009 MORGAN [employer] EXPERT, LAURIE S 786.2 Cough 09/04/2009 MORGAN [employer] EXPERT, LAURIE S 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 09/04/2009 MORGAN [employer] EXPERT, LAURIE S 780.79 Feelings Of Weakness 09/04/2009 MORGAN AUTOM[employer] CONTROLS EXPERTPALOMA BowserNDA S 786.05 Shortness Of Breath 09/04/2009 [...] BOSS MD 786.05 Shortness Of Breath 09/04/2009 BYORN BOSS MD 786.2 Cough 09/04/2009 BYRON BOSS [...] DO, LADONNA K 786.2 Cough 09/04/2009 [employer] EXPERT, ETELVINA L 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 09/04/2009 [employer] EXPERT, ETELVINA L 780.79 Feelings Of Weakness 09/04/2009 [employer] EXPERT, ETELVINA L 786.05 Shortness Of Breath 09/04/2009 M[employer] EXPERT, ETELVINA L 786.2 Cough 09/04/2009 [employer] EXPERT, ETELVINA L 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 09/04/2009 [employer] EXPERT, ETELVINA L 780.79 Feelings Of Weakness 09/04/2009 [employer] EXPERT, ETELVINA L 786.05 Shortness Of Breath 09/04/2009 [employer] EXPERT, ETELVINA L 786.2 Cough 09/04/2009 M[employer] EXPERT, ETELVINA L 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 09/04/2009 [employer] EXPERT, ETELVINA L 780.79 Feelings Of Weakness 09/04/2009 [employer] EXPERT, ETELVINA L 786.05 Shortness Of Breath 09/04/2009 [employer] EXPERT, ETELVINA L 786.2 Cough 09/04/2009 SALGUERO DO, [...] DO, LADONNA K 786.2 Cough 09/04/2009 [employer] EXPERT, ETELVINA L 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 09/04/2009 [employer] EXPERT, ETELVINA L 780.79 Feelings Of Weakness 09/04/2009 M[employer] EXPERT, ETELVINA L 786.05 Shortness Of Breath 09/04/2009 [employer] EXPERT, ETELVINA L 786.2 Cough 09/04/2009 [employer] EXPERT, ETELVINA L 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 09/04/2009 [employer] EXPERT, ETELVINA L 780.79 Feelings Of Weakness 09/04/2009 M[employer] EXPERT, ETELVINA L 786.05 Shortness Of Breath 09/04/2009 M[employer] EXPERT, ETELVINA L 786.2 Cough 09/04/2009 M[employer] EXPERT, ETELVINA L 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 09/04/2009 M[employer] EXPERT, ETELVINA L 780.79 Feelings Of Weakness 09/04/2009 M[employer] EXPERT, ETELVINA L 786.05 Shortness Of Breath 09/04/2009 [employer] EXPERT, ETELVINA L 786.2 Cough 09/04/2009 M[employer] EXPERT, ETELVINA L 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 09/04/2009 [employer] EXPERT, ETELVINA L 780.79 Feelings Of Weakness 09/04/2009 [employer] EXPERT, ETELVINA L 786.05 Shortness Of Breath 09/04/2009 MAD[employer] EXPERT, ETELVINA L 786.2 Cough 09/04/2009 M[employer] EXPERT, ETELVINA L 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 09/04/2009 [employer] EXPERT, ETELVINA L 780.79 Feelings Of Weakness 09/04/2009 M[employer] EXPERT, ETELVINA L 786.05 Shortness Of Breath 09/04/2009 M[employer] EXPERT, ETELVINA L 786.2 Cough 09/04/2009 M[employer] EXPERT, ETELVINA L 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 09/04/2009 M[employer] EXPERT, ETELVINA L 780.79 Feelings Of Weakness 09/04/2009 M[employer] EXPERT, ETELVINA L 786.05 Shortness Of Breath 09/04/2009 M[employer] EXPERT, ETELVINA L 786.2 Cough 09/04/2009 [employer] EXPERT, ETELVINA L 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 09/04/2009 [employer] EXPERT, ETELVINA L 780.79 Feelings Of Weakness 09/04/2009 [employer] EXPERT, ETELVINA L 786.05 Shortness Of Breath 09/04/2009 [employer] EXPERT, ETELVINA L 786.2 Cough 09/04/2009 SALGUERO DO, [...] DO, LADONNA K 786.2 Cough 09/04/2009 [employer] EXPERT, ETELVINA L 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 09/04/2009 [employer] EXPERT, ETELVINA L 780.79 Feelings Of Weakness 09/04/2009 M[employer] EXPERT, ETELVINA L 786.05 Shortness Of Breath 09/04/2009 [employer] EXPERT, ETELVINA L 786.2 Cough 09/04/2009 SALGUERO DO, LADONNA K 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 09/04/2009 SALGUERO DO, LADONNA K 780.79 Feelings Of Weakness 09/04/2009 SALGUERO DO, LADONNA K 786.05 Shortness Of Breath 09/04/2009 SALGUERO DO, LADONNA K 786.2 Cough 09/04/2009 [employer] EXPERT, ETELVINA L 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 09/04/2009 [employer] EXPERT, ETELVINA L 780.79 Feelings Of Weakness 09/04/2009 [employer] EXPERT, ETELVINA L 786.05 Shortness Of Breath 09/04/2009 [employer] EXPERT, ETELVINA L 786.2 Cough 09/07/2009 MORGAN [employer] EXPERT, LAURIE S 079.99 Viral Syndrome 09/07/2009 079.99 Viral Syndrome 09/07/2009 MORGAN [employer] EXPERT, LAURIE S 079.99 Viral Syndrome 09/07/2009 MORGAN [employer] EXPERT, LAURIE S 079.99 Viral Syndrome 09/07/2009 ROMELIA [...] PRAKASHA K 079.99 Viral Syndrome 09/07/2009 [employer] EXPERT, ETELVINA L 079.99 Viral Syndrome 09/07/2009 M[employer] EXPERT, ETELVINA L 079.99 Viral Syndrome 09/07/2009 M[employer] EXPERT, ETELVINA L 079.99 Viral Syndrome 09/07/2009 SALGUERO DO, LADONNA K 079.99 Viral Syndrome 09/07/2009 SALGUERO DO, LADONNA K 079.99 Viral Syndrome 09/07/2009 [employer] EXPERT, ETELVINA L 079.99 Viral Syndrome 09/07/2009 [employer] EXPERT, ETELVINA L 079.99 Viral Syndrome 09/07/2009 M[employer] EXPERT, ETELVINA L 079.99 Viral Syndrome 09/07/2009 [employer] EXPERT, ETELVINA L 079.99 Viral Syndrome 09/07/2009 [employer] EXPERT, ETELVINA L 079.99 Viral Syndrome 09/07/2009 M[employer] EXPERT, ETELVINA L 079.99 Viral Syndrome 09/07/2009 [employer] EXPERT, ETELVINA L 079.99 Viral Syndrome 09/07/2009 SALGUERO DO, LADONNA K 079.99 Viral Syndrome 09/07/2009 SALGUERO DO, LADONNA K 079.99 Viral Syndrome 09/07/2009 [employer] EXPERT, ETELVINA L 079.99 Viral Syndrome 09/07/2009 SALGUERO DO, LADONNA K 079.99 Viral Syndrome 09/07/2009 [employer] EXPERT, ETELVINA L 079.99 Viral Syndrome 10/12/2009 LAURIE [...] BOSS MD 799.02 Hypoxemia 10/12/2009 KARYN MD, BRYON M 719.58 Stiffness Of Joint, Not Elsewhere [...] DO, LADONNA K 799.02 Hypoxemia 10/12/2009 [employer] EXPERT ETELVINA L 719.58 Stiffness Of Joint, Not Elsewhere Classified, Other Specified Sites 10/12/2009 [employer] EXPERT, ETELVINA L 799.02 Hypoxemia 10/12/2009 [employer] EXPERT, ETELVINA L 719.58 Stiffness Of Joint, Not Elsewhere Classified, Other Specified Sites 10/12/2009 [employer] EXPERT, ETELVINA L 799.02 Hypoxemia 10/12/2009 [employer] EXPERT, ETELVINA L 719.58 Stiffness Of Joint, Not Elsewhere Classified, Other Specified Sites 10/12/2009 [employer] EXPERT, ETELVINA L 799.02 Hypoxemia 10/12/2009 SALGUERO DO, LADONNA K 719.58 Stiffness Of Joint, Not Elsewhere Classified, Other Specified Sites 10/12/2009 SALGUERO DO, LADONNA K 799.02 Hypoxemia 10/12/2009 SALGUERO DO, LADONNA K 719.58 Stiffness Of Joint, Not Elsewhere Classified, Other Specified Sites 10/12/2009 SALGUERO DO, LADONNA K 799.02 Hypoxemia 10/12/2009 M[employer] EXPERT, ETELVINA L 719.58 Stiffness Of Joint, Not Elsewhere Classified, Other Specified Sites 10/12/2009 M[employer] EXPERT, ETELVINA L 799.02 Hypoxemia 10/12/2009 MAD[employer] AUT[employer] CONTR[employer] EXPERT, ETELVINA L 719.58 Stiffness Of Joint, Not Elsewhere Classified, Other Specified Sites 10/12/2009 M[employer] EXPERT, ETELVINA L 799.02 Hypoxemia 10/12/2009 M[employer] EXPERT, ETELVINA L 719.58 Stiffness Of Joint, Not Elsewhere Classified, Other Specified Sites 10/12/2009 M[employer] EXPERT, ETELVINA L 799.02 Hypoxemia 10/12/2009 M[employer] EXPERT, ETELVINA L 719.58 Stiffness Of Joint, Not Elsewhere Classified, Other Specified Sites 10/12/2009 M[employer] EXPERT, ETELVINA L 799.02 Hypoxemia 10/12/2009 MAD[employer] CONTR[employer] EXPERT, ETELVINA L 719.58 Stiffness Of Joint, Not Elsewhere Classified, Other Specified Sites 10/12/2009 M[employer] EXPERT, ETELVINA L 799.02 Hypoxemia 10/12/2009 M[employer] EXPERT, ETELVINA L 719.58 Stiffness Of Joint, Not Elsewhere Classified, Other Specified Sites 10/12/2009 M[employer] EXPERT, ETELVINA L 799.02 Hypoxemia 10/12/2009 M[employer] EXPERT, ETELVINA L 719.58 Stiffness Of Joint, Not Elsewhere Classified, Other Specified Sites 10/12/2009 [employer] EXPERT, ETELVINA L 799.02 Hypoxemia 10/12/2009 SALGUERO DO, LADONNA K 719.58 Stiffness Of Joint, Not Elsewhere Classified, Other Specified Sites 10/12/2009 SALGUERO DO, LADONNA K 799.02 Hypoxemia 10/12/2009 SALGUERO DO, LADONNA K 719.58 Stiffness Of Joint, Not Elsewhere Classified, Other Specified Sites 10/12/2009 SALGUERO DO, LADONNA K 799.02 Hypoxemia 10/12/2009 [employer] EXPERT, ETELVINA L 719.58 Stiffness Of Joint, Not Elsewhere Classified, Other Specified Sites 10/12/2009 [employer] EXPERT, ETELVINA L 799.02 Hypoxemia 10/12/2009 SALGUERO DO, LADONNA K 719.58 Stiffness Of Joint, Not Elsewhere Classified, Other Specified Sites 10/12/2009 SALGUERO DO, LADONNA K 799.02 Hypoxemia 10/12/2009 [employer] EXPERT, ETELVINA L 719.58 Stiffness Of Joint, Not Elsewhere Classified, Other Specified Sites 10/12/2009 [employer] EXPERT, ETELVINA L 799.02 Hypoxemia 11/07/2009 PALOMA MROA APRNNDA S 300.00 ANXIETY UNSPEC 11/07/2009 PALOMA MORA APRNNDA S 305.1 NICOTINE DEPENDENCE - CONTINUOUS 11/07/2009 300.00 Anxiety Unspec 11/07/2009 305.1 NICOTINE DEPENDENCE - CONTINUOUS 11/07/2009 MORGAN AUTOM[employer] CONTROLS EXPERTPALOMA BowserNDA S 300.00 Anxiety Unspec 11/07/2009 MORGAN [...] 305.1 NICOTINE DEPENDENCE - CONTINUOUS 11/07/2009 [employer] EXPERT, ETELVINA L 300.00 Anxiety Unspec 11/07/2009 MAD[employer] EXPERT, ETELVINA L 305.1 NICOTINE DEPENDENCE - CONTINUOUS 11/07/2009 MAD[employer] EXPERT, ETELVINA L 300.00 Anxiety Unspec 11/07/2009 MADL [employer] EXPERT, ETELVINA L 305.1 NICOTINE DEPENDENCE - CONTINUOUS 11/07/2009 MAD[employer] EXPERT, ETELVINA L 300.00 Anxiety Unspec 11/07/2009 MADL AUT[employer] CONTR[employer] EXPERT, ETELVINA L 305.1 NICOTINE DEPENDENCE - CONTINUOUS 11/07/2009 SALGUERO DO, LADONNA K 300.00 Anxiety Unspec 11/07/2009 SALGUERO DO, LADONNA K 305.1 NICOTINE DEPENDENCE - CONTINUOUS 11/07/2009 SALGUERO DO, LADONNA K 300.00 Anxiety Unspec 11/07/2009 SALGUERO DO, LADONNA K 305.1 NICOTINE DEPENDENCE - CONTINUOUS 11/07/2009 M[employer] EXPERT, ETELVINA L 300.00 Anxiety Unspec 11/07/2009 MADL AUT[employer] EXPERT, ETELVINA L 305.1 NICOTINE DEPENDENCE - CONTINUOUS 11/07/2009 MADL [employer] EXPERT, ETELVINA L 300.00 Anxiety Unspec 11/07/2009 MADL [employer] EXPERT, ETELVINA L 305.1 NICOTINE DEPENDENCE - CONTINUOUS 11/07/2009 MADL [employer] CONTR[employer] EXPERT, ETELVINA L 300.00 Anxiety Unspec 11/07/2009 MADL AUT[employer] CONTR[employer] EXPERT, ETELVINA L 305.1 NICOTINE DEPENDENCE - CONTINUOUS 11/07/2009 MADL AUT[employer] CONTR[employer]S EXPERT, ETELVINA L 300.00 Anxiety Unspec 11/07/2009 MADL AUT[employer] CONTR[employer] EXPERT, ETELVINA L 305.1 NICOTINE DEPENDENCE - CONTINUOUS 11/07/2009 MADL AUT[employer] CONTR[employer]S EXPERT, ETELVINA L 300.00 Anxiety Unspec 11/07/2009 MADL AUT[employer] CONTR[employer] EXPERT, ETELVINA L 305.1 NICOTINE DEPENDENCE - CONTINUOUS 11/07/2009 MADL AUT[employer] CONTR[employer] EXPERT, ETELVINA L 300.00 Anxiety Unspec 11/07/2009 MADL AUT[employer] CONTR[employer]S EXPERT, ETELVINA L 305.1 NICOTINE DEPENDENCE - CONTINUOUS 11/07/2009 MADL AUT[employer] CONTR[employer]S EXPERT, ETELVINA L 300.00 Anxiety Unspec 11/07/2009 MADL AUT[employer] CONTR[employer] EXPERT, ETELVINA L 305.1 NICOTINE DEPENDENCE - CONTINUOUS 11/07/2009 SALGUERO DO, LADONNA K 300.00 Anxiety Unspec 11/07/2009 SALGUERO DO, LADONNA K 305.1 NICOTINE DEPENDENCE - CONTINUOUS 11/07/2009 SALGUERO DO, LADONNA K 300.00 Anxiety Unspec 11/07/2009 SALGUERO DO, LADONNA K 305.1 NICOTINE DEPENDENCE - CONTINUOUS 11/07/2009 MAD[employer] EXPERT, ETELVINA L 300.00 Anxiety Unspec 11/07/2009 MADL AUT[employer] CONTR[employer]S EXPERT, ETELVINA L 305.1 NICOTINE DEPENDENCE - CONTINUOUS 11/07/2009 SALGUERO DO, LADONNA K 300.00 Anxiety Unspec 11/07/2009 SALGUERO DO, LADONNA K 305.1 NICOTINE DEPENDENCE - CONTINUOUS 11/07/2009 MAD[employer] EXPERT, ETELVINA L 300.00 Anxiety Unspec 11/07/2009 MADL [employer] EXPERT, ETELVINA L 305.1 NICOTINE DEPENDENCE - CONTINUOUS 01/31/2010 LAURIE MORA APRN S 719.43 Joint Pain, Localized In The Wrist 01/31/2010 LAURIE MORA APRN S 782.0 Numbness (hypesthesia) 01/31/2010 719.43 Joint Pain, Localized In The Wrist 01/31/2010 782.0 Numbness ( hypesthesia) 01/31/2010 LAURIE MORA APRN 719.43 Joint Pain, Localized In The Wrist 01/31/2010 MORGAN [employer] EXPERT, LAURIE S 782.0 Numbness (hypesthesia) 01/31/2010 MORGAN [employer] CONTR[employer] EXPERT, LAURIE S 719.43 Joint Pain, Localized In [...] LADONNA K 782.0 Numbness (hypesthesia) 01/31/2010 [employer] EXPERT, ETELVINA L 719.43 Joint Pain, Localized In The Wrist 01/31/2010 M[employer] EXPERT, ETELVINA L 782.0 Numbness (hypesthesia) 01/31/2010 M[employer] EXPERT, ETELVINA L 719.43 Joint Pain, Localized In The Wrist 01/31/2010 [employer] EXPERT, ETELVINA L 782.0 Numbness (hypesthesia) 01/31/2010 [employer] EXPERT, ETELVINA L 719.43 Joint Pain, Localized In The Wrist 01/31/2010 MAD[employer] EXPERT, ETLEVINA L 782.0 Numbness (hypesthesia) 01/31/2010 SALGUERO DO, LADONNA K 719.43 Joint Pain, Localized In The Wrist 01/31/2010 SALGUERO DO, LADONNA K 782.0 Numbness (hypesthesia) 01/31/2010 SALGUERO DO, LADONNA K 719.43 Joint Pain, Localized In The Wrist 01/31/2010 SALGUERO DO, LADONNA K 782.0 Numbness (hypesthesia) 01/31/2010 [employer] EXPERT, ETELVINA L 719.43 Joint Pain, Localized In The Wrist 01/31/2010 [employer] EXPERT, ETELVINA L 782.0 Numbness (hypesthesia) 01/31/2010 M[employer] EXPERT, ETELVINA L 719.43 Joint Pain, Localized In The Wrist 01/31/2010 MADL [employer] EXPERT, ETELVINA L 782.0 Numbness (hypesthesia) 01/31/2010 [employer] EXPERT, ETELVINA L 719.43 Joint Pain, Localized In The Wrist 01/31/2010 M[employer] EXPERT, ETELVINA L 782.0 Numbness (hypesthesia) 01/31/2010 MADL [employer] CONTR[employer]S EXPERT, ETELVINA L 719.43 Joint Pain, Localized In The Wrist 01/31/2010 [employer] EXPERT, ETELVINA L 782.0 Numbness (hypesthesia) 01/31/2010 M[employer] EXPERT, ETELVINA L 719.43 Joint Pain, Localized In The Wrist 01/31/2010 M[employer] EXPERT, ETELVINA L 782.0 Numbness (hypesthesia) 01/31/2010 M[employer] EXPERT, ETELVINA L 719.43 Joint Pain, Localized In The Wrist 01/31/2010 M[employer] EXPERT, ETELVINA L 782.0 Numbness (hypesthesia) 01/31/2010 M[employer]L [employer] EXPERT, ETELVINA L 719.43 Joint Pain, Localized In The Wrist 01/31/2010 MADL [employer] EXPERT, ETELVINA L 782.0 Numbness (hypesthesia) 01/31/2010 SALGUERO DO, LADONNA K 719.43 Joint Pain, Localized In The Wrist 01/31/2010 SALGUERO DO, LADONNA K 782.0 Numbness (hypesthesia) 01/31/2010 SALGUERO DO, LADONNA K 719.43 Joint Pain, Localized In The Wrist 01/31/2010 SALGUERO DO, LADONNA K 782.0 Numbness (hypesthesia) 01/31/2010 [employer] EXPERT, ETELVINA L 719.43 Joint Pain, Localized In The Wrist 01/31/2010 M[employer]L [employer] EXPERT, ETELVINA L 782.0 Numbness (hypesthesia) 01/31/2010 SALGUERO DO LADONNA K 719.43 Joint Pain, Localized In The Wrist 01/31/2010 SALGUERO DO, LADONNA K 782.0 Numbness (hypesthesia) 01/31/2010 MADL AUTOMATION CONTROLS EXPERTHAMMAD BowserA L 719.43 Joint Pain, Localized In The Wrist 01/31/2010 MAD[employer] CONTR[employer]S EXPERT, ETELVINA L 782.0 Numbness (hypesthesia) 03/14/2010 Ot [...] K 517.3 Acute Chest Syndrome 04/02/2010 MADMaxine [employer] CONTR[employer] EXPERTHAMMAD BowserA L 517.3 Acute Chest Syndrome 04/02/2010 MADL AUT[employer] CONTROLS EXPERT, ETELVINA L 517.3 Acute Chest Syndrome 04/02/2010 MADL AUT[employer] CONTROLS EXPERT, ETELVINA L 517.3 Acute Chest Syndrome 04/02/2010 SALGUERO DO, LADONNA K 517.3 Acute Chest Syndrome 04/02/2010 SALGUERO DO, LADONNA K 517.3 Acute Chest Syndrome 04/02/2010 MADL AUT[employer] CONTR[employer]S EXPERT, ETELVINA L 517.3 Acute Chest Syndrome 04/02/2010 MADL AUT[employer] CONTR[employer]S EXPERT, ETELVINA L 517.3 Acute Chest Syndrome 04/02/2010 MADL AUT[employer] CONTROLS EXPERT, ETELVINA L 517.3 Acute Chest Syndrome 04/02/2010 MADL AUT[employer] CONTROLS EXPERT, ETELVINA L 517.3 Acute Chest Syndrome 04/02/2010 MADL AUT[employer] CONTR[employer] EXPERT, ETELVINA L 517.3 Acute Chest Syndrome 04/02/2010 MADL AUT[employer] CONTR[employer]S EXPERT, ETELVINA L 517.3 Acute Chest Syndrome 04/02/2010 MADL AUT[employer] CONTROLS EXPERT, ETELVINA L 517.3 Acute Chest Syndrome 04/02/2010 SALGUERO DO, LADONNA K 517.3 Acute Chest Syndrome 04/02/2010 SALGUERO DO, LADONNA K 517.3 Acute Chest Syndrome 04/02/2010 MADL AUT[employer] CONTROLS EXPERT, ETELVINA L 517.3 Acute Chest Syndrome 04/02/2010 SALGUERO DO, LADONNA K 517.3 Acute Chest Syndrome 04/02/2010 MADL AUT[employer] CONTR[employer] EXPERT, ETELVINA L 517.3 Acute Chest Syndrome 04/14/2010 Ot 305.1 04/14/2010 Ot 491.21 04/14/2010 Ot 786.05 05/20/2010 MORGAN AUTOMATION CONTROLS EXPERT, LAURIE S 272.4 HYPERLIPIDEMIA 05/20/2010 MORGAN AUT[employer] CONTR[employer] EXPERT, LAURIE S 414.01 CAD 05/20/2010 272.4 HYPERLIPIDEMIA 05/20/2010 414.01 CAD 05/20/2010 MORGAN AUT[employer] CONTR[employer]S EXPERT, LAURIE S 272.4 HYPERLIPIDEMIA 05/20/2010 MORGAN AUTOMATION CONTROLS EXPERT, LAURIE S 414.01 CAD 05/20/2010 MORGAN AUTOMATION CONTROLS EXPERT, LAURIE S 272.4 HYPERLIPIDEMIA 05/20/2010 MORGAN HUDSONN, [...] 414.01 CORONARY ARTERY STENOSIS MULTI-VESSEL 05/20/2010 MADL [employer] CONTR[employer] EXPERT, ETELVINA L 272.4 HYPERLIPIDEMIA 05/20/2010 MADL AUT[employer] CONTROLS EXPERT, ETELVINA L 414.01 CORONARY ARTERY STENOSIS MULTI-VESSEL 05/20/2010 MADL AUTOMATION CONTROLS EXPERT, ETELVINA L 272.4 HYPERLIPIDEMIA 05/20/2010 MADL AUTOMATION CONTROLS EXPERT, ETELVINA L 414.01 CORONARY ARTERY STENOSIS MULTI-VESSEL 05/20/2010 MADL AUT[employer]ATION CONTROLS EXPERT, ETELVINA L 272.4 HYPERLIPIDEMIA 05/20/2010 MADL AUTOMATION CONTROLS EXPERT, ETELVINA L 414.01 CORONARY ARTERY STENOSIS MULTI-VESSEL 05/20/2010 SALGUERO DO, LADONNA K 272.4 HYPERLIPIDEMIA 05/20/2010 SALGUERO DO, LADONNA K 414.01 CORONARY ARTERY STENOSIS MULTI-VESSEL 05/20/2010 SALGUERO DO, LADONNA K 272.4 HYPERLIPIDEMIA 05/20/2010 SALGUERO DO, LADONNA K 414.01 CORONARY ARTERY STENOSIS MULTI-VESSEL 05/20/2010 MADL AUTOMATION CONTROLS EXPERT, ETELVINA L 272.4 HYPERLIPIDEMIA 05/20/2010 MADL AUTOMATION CONTROLS EXPERT, ETELVINA L 414.01 CORONARY ARTERY STENOSIS MULTI-VESSEL 05/20/2010 MADL AUTOMATION CONTROLS EXPERT, ETELVINA L 272.4 HYPERLIPIDEMIA 05/20/2010 MADL AUTOMATION CONTROLS EXPERT, ETELVINA L 414.01 CORONARY ARTERY STENOSIS MULTI-VESSEL 05/20/2010 MADL AUT[employer]ATION CONTROLS EXPERT, ETELVINA L 272.4 HYPERLIPIDEMIA 05/20/2010 MADL AUTOMATION CONTROLS EXPERT, ETELVINA L 414.01 CORONARY ARTERY STENOSIS MULTI-VESSEL 05/20/2010 MADL AUTOMATION CONTROLS EXPERT, ETELVINA L 272.4 HYPERLIPIDEMIA 05/20/2010 MADL AUT[employer]ATION CONTROLS EXPERT, ETELVINA L 414.01 CORONARY ARTERY STENOSIS MULTI-VESSEL 05/20/2010 MADL AUT[employer]ATION CONTROLS EXPERT, ETELVINA L 272.4 HYPERLIPIDEMIA 05/20/2010 MADL AUT[employer] CONTR[employer]S EXPERT, ETELVINA L 414.01 CORONARY ARTERY STENOSIS MULTI-VESSEL 05/20/2010 MADL AUT[employer] CONTROLS EXPERT, ETELVIAN L 272.4 HYPERLIPIDEMIA 05/20/2010 MADL AUT[employer] CONTR[employer]S EXPERT, ETELVINA L 414.01 CORONARY ARTERY STENOSIS MULTI-VESSEL 05/20/2010 MADL AUT[employer]ATION CONTR[employer]S EXPERT, ETELVINA L 272.4 HYPERLIPIDEMIA 05/20/2010 M[employer] EXPERT, ETELVINA L 414.01 CORONARY ARTERY STENOSIS MULTI-VESSEL 05/20/2010 SALGUERO DO, LADONNA K 272.4 HYPERLIPIDEMIA 05/20/2010 SALGUERO DO, LADONNA K 414.01 CORONARY ARTERY STENOSIS MULTI-VESSEL 05/20/2010 SALGUERO DO, LADONNA K 272.4 HYPERLIPIDEMIA 05/20/2010 SALGUERO DO, LADONNA K 414.01 CORONARY ARTERY STENOSIS MULTI-VESSEL 05/20/2010 [employer] EXPERT, ETELVINA L 272.4 HYPERLIPIDEMIA 05/20/2010 [employer] EXPERT, ETELVINA L 414.01 CORONARY ARTERY STENOSIS MULTI-VESSEL 05/20/2010 SALGUERO DO, LADONNA K 272.4 HYPERLIPIDEMIA 05/20/2010 SALGUERO DO, LADONNA K 414.01 CORONARY ARTERY STENOSIS MULTI-VESSEL 05/20/2010 [employer] EXPERT, ETELVINA L 272.4 HYPERLIPIDEMIA 05/20/2010 [employer] EXPERT, ETELVINA L 414.01 CORONARY ARTERY STENOSIS MULTI-VESSEL [...] 356.9 UNSPECIFIED IDIOPATHIC PERIPHERAL NEUROPATHY 07/31/2010 [employer] EXPERT, ETELVINA L 356.9 UNSPECIFIED IDIOPATHIC PERIPHERAL NEUROPATHY 07/31/2010 [employer] EXPERT, ETELVINA L 356.9 UNSPECIFIED IDIOPATHIC PERIPHERAL NEUROPATHY 07/31/2010 [employer] EXPERT, ETELVINA L 356.9 UNSPECIFIED IDIOPATHIC PERIPHERAL NEUROPATHY 07/31/2010 SALGUERO DO, LADONNA K 356.9 UNSPECIFIED IDIOPATHIC PERIPHERAL NEUROPATHY 07/31/2010 SALGUERO DO, LADONNA K 356.9 UNSPECIFIED IDIOPATHIC PERIPHERAL NEUROPATHY 07/31/2010 [employer] EXPERT, ETELVINA L 356.9 UNSPECIFIED IDIOPATHIC PERIPHERAL NEUROPATHY 07/31/2010 [employer] EXPERT, ETELVINA L 356.9 UNSPECIFIED IDIOPATHIC PERIPHERAL NEUROPATHY 07/31/2010 [employer] EXPERT, ETELVINA L 356.9 UNSPECIFIED IDIOPATHIC PERIPHERAL NEUROPATHY 07/31/2010 [employer] EXPERT, ETELVINA L 356.9 UNSPECIFIED IDIOPATHIC PERIPHERAL NEUROPATHY 07/31/2010 [employer] EXPERT, ETELVINA L 356.9 UNSPECIFIED IDIOPATHIC PERIPHERAL NEUROPATHY 07/31/2010 [employer] EXPERT, ETELVINA L 356.9 UNSPECIFIED IDIOPATHIC PERIPHERAL NEUROPATHY 07/31/2010 [employer] EXPERT, ETELVINA L 356.9 UNSPECIFIED IDIOPATHIC PERIPHERAL NEUROPATHY 07/31/2010 SALGUERO DO, LADONNA K 356.9 UNSPECIFIED IDIOPATHIC PERIPHERAL NEUROPATHY 07/31/2010 SALGUERO DO, LADONNA K 356.9 UNSPECIFIED IDIOPATHIC PERIPHERAL NEUROPATHY 07/31/2010 [employer], ETELVINA L 356.9 UNSPECIFIED IDIOPATHIC PERIPHERAL NEUROPATHY 07/31/2010 SALGUERO DO, LADONNA K 356.9 UNSPECIFIED IDIOPATHIC PERIPHERAL NEUROPATHY 07/31/2010 [employer], ETELVINA L 356.9 UNSPECIFIED IDIOPATHIC PERIPHERAL NEUROPATHY 08/01/2010 [employer], LAURIE S 791.0 Microalbuminuria 08/01/2010 791.0 Microalbuminuria 08/01/2010 [employer], LAURIE S 791.0 Microalbuminuria 08/01/2010 [employer] EX[employer], LAURIE S 791.0 Microalbuminuria 08/01/2010 ROMELIA FISCHER [...] DO, LADONNA K 791.0 Microalbuminuria 08/01/2010 [employer], ETELVINA L 791.0 Microalbuminuria 08/01/2010 [employer], ETELVINA L 791.0 Microalbuminuria 08/01/2010 [employer] EXPERT, ETELVINA L 791.0 Microalbuminuria 08/01/2010 SALGUERO DO, LADONNA K 791.0 Microalbuminuria 08/01/2010 SALGUERO DO, LADONNA K 791.0 Microalbuminuria 08/01/2010 [employer] EXPERT, ETELVINA L 791.0 Microalbuminuria 08/01/2010 [employer] EXPERT, ETELVINA L 791.0 Microalbuminuria 08/01/2010 [employer] EXPERT, ETELVINA L 791.0 Microalbuminuria 08/01/2010 [employer] EXPERT, ETELVINA L 791.0 Microalbuminuria 08/01/2010 [employer] EXPERT, ETELVINA L 791.0 Microalbuminuria 08/01/2010 [employer] EXPERT, ETELVINA L 791.0 Microalbuminuria 08/01/2010 [employer] EXPERT, ETELVINA L 791.0 Microalbuminuria 08/01/2010 SALGUERO DO, LADONNA K 791.0 Microalbuminuria 08/01/2010 SALGUERO DO, LADONNA K 791.0 Microalbuminuria 08/01/2010 [employer] EXPERT, ETELVINA L 791.0 Microalbuminuria 08/01/2010 SALGUERO DO, LADONNA K 791.0 Microalbuminuria 08/01/2010 [employer] EXPERT, ETELVINA L 791.0 Microalbuminuria 08/05/2010 LAURIE MORA [...] K 721.0 Cervical Spondylosis Without Myelopathy 08/05/2010 SALGUEOR DO, LADONNA K 721.0 Cervical Spondylosis Without Myelopathy 08/05/2010 SALGUERO DO, LADONNA K 721.0 Cervical Spondylosis Without Myelopathy 08/05/2010 [employer] EXPERT, ETELVINA L 721.0 Cervical Spondylosis Without Myelopathy 08/05/2010 [employer] EXPERT, ETELVINA L 721.0 Cervical Spondylosis Without Myelopathy 08/05/2010 [employer] EXPERT, ETELVINA L 721.0 Cervical Spondylosis Without Myelopathy 08/05/2010 SALGUERO DO, LADONNA K 721.0 Cervical Spondylosis Without Myelopathy 08/05/2010 SALGUERO DO, LADONNA K 721.0 Cervical Spondylosis Without Myelopathy 08/05/2010 [employer] EXPERT, ETELVINA L 721.0 Cervical Spondylosis Without Myelopathy 08/05/2010 M[employer] EXPERT, ETELVINA L 721.0 Cervical Spondylosis Without Myelopathy 08/05/2010 M[employer] EXPERT, ETELVINA L 721.0 Cervical Spondylosis Without Myelopathy 08/05/2010 M[employer] EXPERT, ETELVINA L 721.0 Cervical Spondylosis Without Myelopathy 08/05/2010 [employer] EXPERT, ETELVINA L 721.0 Cervical Spondylosis Without Myelopathy 08/05/2010 [employer] EXPERT, ETELVINA L 721.0 Cervical Spondylosis Without Myelopathy 08/05/2010 [employer] EXPERT, ETELVINA L 721.0 Cervical Spondylosis Without Myelopathy 08/05/2010 SALGUERO DO, LADONNA K 721.0 Cervical Spondylosis Without Myelopathy 08/05/2010 SALGUERO DO, LADONNA K 721.0 Cervical Spondylosis Without Myelopathy 08/05/2010 HUGOL [employer] EXPERT, ETELVINA Goodman 721.0 Cervical Spondylosis Without Myelopathy 08/05/2010 LADONNA SALGUERO DO K 721.0 Cervical Spondylosis Without Myelopathy 08/05/2010 [employer] EXPERT, ETELVINA Goodman 721.0 Cervical Spondylosis Without Myelopathy 08/07/2010 Ot 847.0 08/07/2010 Ot 847.2 08/07/2010 Ot 959.09 08/07/2010 Ot E000.8 08/07/2010 Ot E849.0 08/07/2010 Ot E884.2 08/13/2010 MORGAN HARRIS LAURIE S 441.4 ABDOMINAL ANEURYSM WITHOUT MENTION OF RUPTURE 08/13/2010 [employer]GAN [employer] EXPERT, LAURIE S 724.2 LUMBAGO 08/13/2010 441.4 Abdominal Aneurysm Without Mention Of Rupture 08/13/2010 724.2 LUMBAGO 08/13/2010 MORGAN HARRIS LAURIE S 441.4 Abdominal Aneurysm Without Mention Of Rupture 08/13/2010 MORGAN [employer] EXPERT, LAURIE S 724.2 LUMBAGO 08/13/2010 MORGAN [employer] EXPERT, LAURIE S 441.4 Abdominal Aneurysm Without Mention [...] K 724.2 lower back pain 08/13/2010 [employer] EXPERT, ETELVINA L 441.4 Abdominal Aneurysm Without Mention Of Rupture 08/13/2010 [employer] EXPERT, ETELVINA L 724.2 lower back pain 08/13/2010 [employer] EXPERT, ETELVINA L 441.4 Abdominal Aneurysm Without Mention Of Rupture 08/13/2010 M[employer] EXPERT, ETELVINA L 724.2 lower back pain 08/13/2010 [employer] EXPERT, ETELVINA L 441.4 Abdominal Aneurysm Without Mention Of Rupture 08/13/2010 [employer] EXPERT, ETELVINA L 724.2 lower back pain 08/13/2010 SALGUERO DO, LADONNA K 441.4 Abdominal Aneurysm Without Mention Of Rupture 08/13/2010 SALGUERO DO, LADONNA K 724.2 lower back pain 08/13/2010 SALGUERO DO, LADONNA K 441.4 Abdominal Aneurysm Without Mention Of Rupture 08/13/2010 SALGUERO DO, LADONNA K 724.2 lower back pain 08/13/2010 [employer] EXPERT, ETELVINA L 441.4 Abdominal Aneurysm Without Mention Of Rupture 08/13/2010 [employer] EXPERT, ETELVINA L 724.2 lower back pain 08/13/2010 M[employer] EXPERT, ETELVINA L 441.4 Abdominal Aneurysm Without Mention Of Rupture 08/13/2010 M[employer]L [employer] EXPERT, ETELVINA L 724.2 lower back pain 08/13/2010 MADL [employer] EXPERT, ETELVINA L 441.4 Abdominal Aneurysm Without Mention Of Rupture 08/13/2010 M[employer] EXPERT, ETELVINA L 724.2 lower back pain 08/13/2010 MAD[employer] EXPERT, ETELVINA L 441.4 Abdominal Aneurysm Without Mention Of Rupture 08/13/2010 M[employer] EXPERT, ETELVINA L 724.2 lower back pain 08/13/2010 M[employer] EXPERT, ETELVINA L 441.4 Abdominal Aneurysm Without Mention Of Rupture 08/13/2010 M[employer] EXPERT, ETELVINA L 724.2 lower back pain 08/13/2010 M[employer] EXPERT, ETELVINA L 441.4 Abdominal Aneurysm Without Mention Of Rupture 08/13/2010 M[employer] EXPERT, ETELVINA L 724.2 lower back pain 08/13/2010 M[employer] EXPERT, ETELVINA L 441.4 Abdominal Aneurysm Without Mention Of Rupture 08/13/2010 [employer] EXPERT, ETELVINA L 724.2 lower back pain 08/13/2010 SALGUERO DO, LADONNA K 441.4 Abdominal Aneurysm Without Mention Of Rupture 08/13/2010 SALGUERO DO, LADONNA K 724.2 lower back pain 08/13/2010 TERE SALGUERO DOA K 441.4 Abdominal Aneurysm Without Mention Of Rupture 08/13/2010 NOEMY DOTEREA K 724.2 lower back pain 08/13/2010 [employer] EXPERTETELVINA Bowser L 441.4 Abdominal Aneurysm Without Mention Of Rupture 08/13/2010 HUGOL ETELVINA HARRIS L 724.2 lower back pain 08/13/2010 TERE SALGUERO DOA K 441.4 Abdominal Aneurysm Without Mention Of Rupture 08/13/2010 TERE SALGUERO DOA K 724.2 lower back pain 08/13/2010 MADL [employer] EXPERTHAMMAD BowserA L 441.4 Abdominal Aneurysm Without Mention [...] Pain In Joint Site Unspecified 12/12/2010 MORGAN [employer] EXPERT, LAURIE S 724.5 Back Pain, General 12/12/2010 M[employer]GAN [employer] EXPERT, LAURIE S 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 12/12/2010 MORGAN [employer] EXPERT, LAURIE S 729.5 Arm Pain 12/12/2010 MORGAN [employer] EXPERT, LAURIE S 719.40 Pain In Joint Site Unspecified 12/12/2010 MORGAN [employer] EXPERT, LAURIE S 724.5 Back Pain, General 12/12/2010 MORGAN [employer] EXPERT, LAURIE S 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 12/12/2010 MORGAN [employer] EXPERT, LAURIE S 729.5 Arm Pain 12/12/2010 AMADO OLVERA, ROMELIA 719.40 Pain In Joint Site Unspecified 12/12/2010 AMADO OLVERA, ROMELIA 724.5 Back Pain, General 12/12/2010 MAADO OLVERA, ROMELIA 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 12/12/2010 [...] LADONNA K 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 12/12/2010 SALGUEOR DO LADONNA K 729.5 Arm Pain 12/12/2010 [...] LADONNA K 729.5 Arm Pain 12/12/2010 [employer] EXPERT, ETELVINA L 719.40 Pain In Joint Site Unspecified 12/12/2010 M[employer] EXPERT, ETELVINA L 724.5 Back Pain, General 12/12/2010 [employer] EXPERT, ETELVINA L 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 12/12/2010 M[employer] EXPERT, ETELVINA L 729.5 Arm Pain 12/12/2010 MADL [employer] EXPERT, ETELVINA L 719.40 Pain In Joint Site Unspecified 12/12/2010 MADL [employer] EXPERT, ETELVINA L 724.5 Back Pain, General 12/12/2010 M[employer] EXPERT, ETELVINA L 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 12/12/2010 MADL [employer] EXPERT, ETELVINA L 729.5 Arm Pain 12/12/2010 M[employer] EXPERT, ETELVINA L 719.40 Pain In Joint Site Unspecified 12/12/2010 M[employer] EXPERT, ETELVINA L 724.5 Back Pain, General 12/12/2010 MADL [employer] EXPERT, ETELVINA L 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 12/12/2010 MADL [employer] EXPERT, ETELVINA L 729.5 Arm Pain 12/12/2010 SALGUERO [...] LADONNA K 729.5 Arm Pain 12/12/2010 MADL [employer] EXPERT, ETELVINA L 719.40 Pain In Joint Site Unspecified 12/12/2010 MADL [employer] EXPERT, ETELVINA L 724.5 Back Pain, General 12/12/2010 MADL [employer] EXPERT, ETELVINA L 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 12/12/2010 MADL [employer] EXPERT, ETELVINA L 729.5 Arm Pain 12/12/2010 MADL [employer] EXPERT, ETELVINA L 719.40 Pain In Joint Site Unspecified 12/12/2010 MADL [employer] EXPERT, ETELVINA L 724.5 Back Pain, General 12/12/2010 MADL [employer] EXPERT, ETELVINA L 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 12/12/2010 MADL AUT[employer] EXPERT, ETELVINA L 729.5 Arm Pain 12/12/2010 MADL AUT[employer] EXPERT, ETELVINA L 719.40 Pain In Joint Site Unspecified 12/12/2010 MADL [employer] EXPERT, ETELVINA L 724.5 Back Pain, General 12/12/2010 MADL [employer] EXPERT, ETELVINA L 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 12/12/2010 MADL AUT[employer] EXPERT, ETELVINA L 729.5 Arm Pain 12/12/2010 MADL [employer] EXPERT, ETELVINA L 719.40 Pain In Joint Site Unspecified 12/12/2010 MADL [employer] EXPERT, ETELVINA L 724.5 Back Pain, General 12/12/2010 MADL [employer] EXPERT, ETELVINA L 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 12/12/2010 MADL AUT[employer] EXPERT, ETELVINA L 729.5 Arm Pain 12/12/2010 MADL [employer] EXPERT, ETELVINA L 719.40 Pain In Joint Site Unspecified 12/12/2010 MADL [employer] EXPERT, ETELVINA L 724.5 Back Pain, General 12/12/2010 MADL [employer] EXPERT, ETELVINA L 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 12/12/2010 MADL AUT[employer] EXPERT, ETELVINA L 729.5 Arm Pain 12/12/2010 MADL [employer] EXPERT, ETELVINA L 719.40 Pain In Joint Site Unspecified 12/12/2010 MADL [employer] EXPERT, ETELVINA L 724.5 Back Pain, General 12/12/2010 MADL AUT[employer] EXPERT, ETELVINA L 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 12/12/2010 MADL [employer] EXPERT, ETELVINA L 729.5 Arm Pain 12/12/2010 MADL [employer] EXPERT, ETELVINA L 719.40 Pain In Joint Site Unspecified 12/12/2010 MADL [employer] EXPERT, ETELVINA L 724.5 Back Pain, General 12/12/2010 MADL [employer] EXPERT, ETELVINA L 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 12/12/2010 MADL [employer] EXPERT, ETELVINA L 729.5 Arm Pain 12/12/2010 SALGUERO [...] LADONNA K 729.5 Arm Pain 12/12/2010 MADL [employer] EXPERT, ETELVINA L 719.40 Pain In Joint Site Unspecified 12/12/2010 MADL [employer] EXPERT, ETELVINA L 724.5 Back Pain, General 12/12/2010 MADL [employer] EXPERT, ETELVINA L 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 12/12/2010 MADL [employer] EXPERT, ETELVINA L 729.5 Arm Pain 12/12/2010 SALGUERO DO, LADONNA K 719.40 Pain In Joint Site Unspecified 12/12/2010 SALGUERO DO, LADONNA K 724.5 Back Pain, General 12/12/2010 SALGUERO DO, LADONNA K 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 12/12/2010 SALGUERO DO, LADONNA K 729.5 Arm Pain 12/12/2010 M[employer]L [employer] EXPERT, ETELVINA L 719.40 Pain In Joint Site Unspecified 12/12/2010 MADL [employer] EXPERT, ETELVINA L 724.5 Back Pain, General 12/12/2010 MADL [employer] EXPERT, ETELVINA L 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 12/12/2010 M[employer] EXPERT, ETELVINA L 729.5 Arm Pain 01/22/2011 Ot [...] V68.1 ISSUE OF REPEAT PRESCRIPTIONS 06/17/2011 ETELVINA LENOARD APRN V68.1 ISSUE OF REPEAT PRESCRIPTIONS 06/17/2011 AISHA HARRIS ETELVINA L V68.1 ISSUE OF REPEAT PRESCRIPTIONS 06/17/2011 MADL [employer] EXPERTHAMMAD BowserA L V68.1 ISSUE OF REPEAT PRESCRIPTIONS 06/17/2011 SALGUERO DOTEREA K V68.1 ISSUE OF REPEAT PRESCRIPTIONS 06/17/2011 SALGUERO DOTEREA K V68.1 ISSUE OF REPEAT PRESCRIPTIONS 06/17/2011 M[employer]L [employer] CONTR[employer] EXPERTANDREZETELVINA L V68.1 ISSUE OF REPEAT PRESCRIPTIONS 06/17/2011 MADL AUTOMATION CONTR[employer]S EXPERTANDREZETELVINA L V68.1 ISSUE OF REPEAT PRESCRIPTIONS 06/17/2011 M[employer]L [employer] EXPERT, ETELVINA L V68.1 ISSUE OF REPEAT PRESCRIPTIONS 06/17/2011 MADL AUTOMATION CONTR[employer]S EXPERTSARAETELVINA L V68.1 ISSUE OF REPEAT PRESCRIPTIONS 06/17/2011 M[employer]L [employer] EXPERT, ETELVINA L V68.1 ISSUE OF REPEAT PRESCRIPTIONS 06/17/2011 MADL [employer] CONTR[employer] EXPERTANDREZ BowserNYA L V68.1 ISSUE OF REPEAT PRESCRIPTIONS [...] TY 07/14/2011 Ot 414.01 CORONARY ATHEROSCLEROSIS OF [place] CORON 07/14/2011 Ot 496 CHR AIRWAY OBSTRUCT [...] (3 Yrs And Above, Im) 07/31/2011 M[employer]L [employer] EXPERT, ETELVINA L V04.81 Flu Dx (3 Yrs And Above, Im) 07/31/2011 M[employer]L [employer] EXPERT, ETELVINA L V04.81 Flu Dx (3 Yrs And Above, Im) 07/31/2011 MADL AUT[employer] EXPERT, ETELVINA L V04.81 Flu Dx (3 Yrs And Above, Im) 07/31/2011 SALGUERO DO, LADONNA K V04.81 Flu Dx (3 Yrs And Above, Im) 07/31/2011 SALGUERO DO, LADONNA K V04.81 Flu Dx (3 Yrs And Above, Im) 07/31/2011 MADL AUT[employer]ATION [employer] EXPERT, ETELVINA L V04.81 Flu Dx (3 Yrs And Above, Im) 07/31/2011 MADL AUT[employer] EXPERT, ETELVINA L V04.81 Flu Dx (3 Yrs And Above, Im) 07/31/2011 MADL AUT[employer]ATION [employer] EXPERT, ETELVINA L V04.81 Flu Dx (3 Yrs And Above, Im) 07/31/2011 MADL AUT[employer] EXPERT, ETELVINA L V04.81 Flu Dx (3 Yrs And Above, Im) 07/31/2011 MADL AUT[employer] EXPERT, ETELVINA L V04.81 Flu Dx (3 Yrs And Above, Im) 07/31/2011 MADL AUT[employer]ATION [employer] EXPERT, ETELVINA L V04.81 Flu Dx (3 Yrs And Above, Im) 07/31/2011 M[employer]L AUT[employer] EXPERT, ETELVINA L V04.81 Flu Dx (3 Yrs And Above, Im) 07/31/2011 SALGUERO DO, LADONNA K V04.81 Flu Dx (3 Yrs And Above, Im) 07/31/2011 SALGUERO DO, LADONNA K V04.81 Flu Dx (3 Yrs And Above, Im) 07/31/2011 MADL AUT[employer]ATION [employer] EXPERT, ETELVINA L V04.81 Flu Dx (3 Yrs And Above, Im) 07/31/2011 SALGUERO DO, LADONNA K V04.81 Flu Dx (3 Yrs And Above, Im) 07/31/2011 M[employer] EXPERT, ETELVINA L V04.81 Flu Dx (3 Yrs And Above, Im) 08/27/2011 MORGAN [employer] EXPERT, LAURIE S 780.50 SLEEP DISTURBANCE, UNSPECIFIED 08/27/2011 780.50 Sleep Disturbance, Unspecified 08/27/2011 MORGAN [employer] EXPERT, LAURIE S 780.50 Sleep Disturbance, Unspecified 08/27/2011 MORGAN [employer] EXPERT, LAURIE S 780.50 Sleep Disturbance, Unspecified 08/27/2011 [...] K 780.50 Sleep Disturbance, Unspecified 08/27/2011 M[employer]L [employer] EXPERT, ETELVINA L 780.50 Sleep Disturbance, Unspecified 08/27/2011 MADL AUT[employer] EXPERT, ETELVINA L 780.50 Sleep Disturbance, Unspecified 08/27/2011 MADL AUTOMATION CONTR[employer] EXPERT, ETELVINA L 780.50 Sleep Disturbance, Unspecified 08/27/2011 SALGUERO DO, LADONNA K 780.50 Sleep Disturbance, Unspecified 08/27/2011 SALGUERO DO, LADONNA K 780.50 Sleep Disturbance, Unspecified 08/27/2011 MADL [employer] EXPERT, ETELVINA L 780.50 Sleep Disturbance, Unspecified 08/27/2011 MADL [employer] EXPERT, ETELVINA L 780.50 Sleep Disturbance, Unspecified 08/27/2011 MADL AUT[employer] EXPERT, ETELVINA L 780.50 Sleep Disturbance, Unspecified 08/27/2011 MADL AUT[employer] EXPERT, ETELVINA L 780.50 Sleep Disturbance, Unspecified 08/27/2011 MADL [employer] EXPERT, ETELVINA L 780.50 Sleep Disturbance, Unspecified 08/27/2011 MADL [employer] EXPERT, ETELVINA L 780.50 Sleep Disturbance, Unspecified 08/27/2011 MADL AUT[employer] EXPERT, ETELVINA L 780.50 Sleep Disturbance, Unspecified 08/27/2011 SALGUERO DO, LADONNA K 780.50 Sleep Disturbance, Unspecified 08/27/2011 SALGUERO DO, LADONNA K 780.50 Sleep Disturbance, Unspecified 08/27/2011 M[employer]L [employer] EXPERT, ETELVINA L 780.50 Sleep Disturbance, Unspecified 08/27/2011 SALGUERO DO, LADONNA K 780.50 Sleep Disturbance, Unspecified 08/27/2011 M[employer]L [employer] EXPERT, ETELVINA L 780.50 Sleep Disturbance, Unspecified 09/26/2011 MORGAN [employer] EXPERT, LAURIE S 788.41 URINARY FREQUENCY 09/26/2011 MORGAN [employer] EXPERT, LAURIE S 788.63 URINARY URGENCY 09/26/2011 788.41 Urinary Frequency 09/26/2011 788.63 Urinary Urgency 09/26/2011 MORGAN [employer] EXPERT, LAURIE S 788.41 Urinary Frequency 09/26/2011 MORGAN [employer] EXPERT, LAURIE S 788.63 Urinary Urgency 09/26/2011 MORGAN AUT[employer] EXPERT, LAURIE S 788.41 Urinary Frequency 09/26/2011 MORGAN AUTOMATION CONTR[employer] EXPERT, LAURIE S 788.63 Urinary Urgency 09/26/2011 ROMELIA [...] LADONNA K 788.63 Urinary Urgency 09/26/2011 MADL [employer] EXPERT, ETELVINA L 788.41 Urinary Frequency 09/26/2011 MADL AUTOMATION [employer] EXPERT, ETELVINA L 788.63 Urinary Urgency 09/26/2011 MADL AUTOMATION CONTR[employer]S EXPERT, ETELVINA L 788.41 Urinary Frequency 09/26/2011 MADL AUTOMATION CONTR[employer]S EXPERT, ETELVINA L 788.63 Urinary Urgency 09/26/2011 MADL AUTOMATION CONTROLS EXPERT, ETELVINA L 788.41 Urinary Frequency 09/26/2011 MADL AUTOMATION CONTR[employer]S EXPERT, ETELVINA L 788.63 Urinary Urgency 09/26/2011 SALGUERO DO, LADONNA K 788.41 Urinary Frequency 09/26/2011 SALGUERO DO, LADONNA K 788.63 Urinary Urgency 09/26/2011 SALGUERO DO, LADONNA K 788.41 Urinary Frequency 09/26/2011 SALGUERO DO, LADONNA K 788.63 Urinary Urgency 09/26/2011 MADL AUTOMATION CONTR[employer] EXPERT, ETELVINA L 788.41 Urinary Frequency 09/26/2011 MADL AUTOMATION CONTR[employer]S EXPERT, ETELVINA L 788.63 Urinary Urgency 09/26/2011 MADL AUTOMATION CONTROLS EXPERT, ETELVINA L 788.41 Urinary Frequency 09/26/2011 MADL AUTOMATION CONTROLS EXPERT, ETELVINA L 788.63 Urinary Urgency 09/26/2011 MADL AUTOMATION CONTROLS EXPERT, ETELVINA L 788.41 Urinary Frequency 09/26/2011 MADL AUTOMATION CONTROLS EXPERT, ETELVINA L 788.63 Urinary Urgency 09/26/2011 MADL AUTOMATION CONTROLS EXPERT, ETELVINA L 788.41 Urinary Frequency 09/26/2011 MADL AUTOMATION CONTROLS EXPERT, ETELVINA L 788.63 Urinary Urgency 09/26/2011 MADL AUTOMATION CONTR[employer]S EXPERT, ETELVINA L 788.41 Urinary Frequency 09/26/2011 MADL AUTOMATION CONTROLS EXPERT, ETELVINA L 788.63 Urinary Urgency 09/26/2011 MADL AUTOMATION CONTROLS EXPERT, ETELVINA L 788.41 Urinary Frequency 09/26/2011 MADL AUTOMATION CONTR[employer]S EXPERT, ETELVINA L 788.63 Urinary Urgency 09/26/2011 MADL AUTOMATION CONTROLS EXPERT, ETELVINA L 788.41 Urinary Frequency 09/26/2011 MADL AUTOMATION CONTROLS EXPERT, ETELVINA L 788.63 Urinary Urgency 09/26/2011 SALGUERO DO, LADONNA K 788.41 Urinary Frequency 09/26/2011 SALGUERO DO, LADONNA K 788.63 Urinary Urgency 09/26/2011 SALGUERO DO, LADONNA K 788.41 Urinary Frequency 09/26/2011 SALGUERO DO, LADONNA K 788.63 Urinary Urgency 09/26/2011 MADL AUTOMATION CONTR[employer]S EXPERT, ETELVINA L 788.41 Urinary Frequency 09/26/2011 MADL AUTOMATION CONTROLS EXPERT, ETELVINA L 788.63 Urinary Urgency 09/26/2011 SALGUERO DO, LADONNA K 788.41 Urinary Frequency 09/26/2011 SALGUERO DO, LADONNA K 788.63 Urinary Urgency 09/26/2011 MADL AUTOMATION CONTR[employer] EXPERT, ETELVINA L 788.41 Urinary Frequency 09/26/2011 MADL AUTOMATION CONTR[employer]S EXPERT, ETELVINA L 788.63 Urinary Urgency 10/18/2011 MORGAN [...] PAIN 11/11/2011 Ot 414.01 CORONARY ATHEROSCLEROSIS OF [place] CORON 11/11/2011 Ot 424.1 AORTIC VALVE DISORDER [...] LADONNA K 461.9 Sinusitis Acute 12/04/2011 MADL [employer] EXPERT, ETELVINA L 461.9 Sinusitis Acute 12/04/2011 MADL [employer] EXPERT, ETELVINA L 461.9 Sinusitis Acute 12/04/2011 MADL [employer] EXPERT, ETELVINA L 461.9 Sinusitis Acute 12/04/2011 SALGUERO DO, LADONNA K 461.9 Sinusitis Acute 12/04/2011 SALGUERO DO, LADONNA K 461.9 Sinusitis Acute 12/04/2011 MADL AUTOMATION [employer] EXPERT, ETELVINA L 461.9 Sinusitis Acute 12/04/2011 MADL AUTOMATION CONTR[employer] EXPERT, ETELVINA L 461.9 Sinusitis Acute 12/04/2011 MADL AUTOM[employer] CONTR[employer] EXPERT, ETELVINA L 461.9 Sinusitis Acute 12/04/2011 MADL AUTOMATION CONTR[employer]S EXPERT, ETELVINA L 461.9 Sinusitis Acute 12/04/2011 MADL AUTOMATION CONTR[employer]S EXPERT, ETELVINA L 461.9 Sinusitis Acute 12/04/2011 MADL AUTOMATION CONTR[employer] EXPERT, ETELVINA L 461.9 Sinusitis Acute 12/04/2011 MADL AUT[employer] EXPERT, ETELVINA L 461.9 Sinusitis Acute 12/04/2011 SALGUERO DO, LADONNA K 461.9 Sinusitis Acute 12/04/2011 SALGUERO DO, LADONNA K 461.9 Sinusitis Acute 12/04/2011 M[employer]L [employer] EXPERT, ETELVINA L 461.9 Sinusitis Acute 12/04/2011 SALGUERO DO, LADONNA K 461.9 Sinusitis Acute 12/04/2011 MADL [employer] EXPERT, ETELVINA L 461.9 Sinusitis Acute 12/19/2011 MORGAN [employer] EXPERT, ALURIE S 486 PNEUMONIA UNSPECIFIED 12/19/2011 MORGAN [employer] EXPERT, LAURIE S 786.2 COUGH 12/19/2011 486 Pneumonia Unspecified 12/19/2011 786.2 Cough 12/19/2011 MORGAN [employer] EXPERT, LAURIE S 486 Pneumonia Unspecified 12/19/2011 MORGAN [employer] EXPERT, LAURIE S 786.2 Cough 12/19/2011 MORGAN [employer] EXPERT, LAURIE S 486 Pneumonia Unspecified 12/19/2011 MORGAN [employer] EXPERT, LAURIE S 786.2 Cough 12/19/2011 ROMELIA FISCHER [...] DO, LADONNA K 786.2 Cough 12/19/2011 MADL [employer] EXPERT, ETELVINA L 486 Pneumonia Unspecified 12/19/2011 [employer]AD[employer] EXPERT, ETELVINA L 786.2 Cough 12/19/2011 MAD[employer] EXPERT, ETELVINA L 486 Pneumonia Unspecified 12/19/2011 MAD[employer] EXPERT, ETELVINA L 786.2 Cough 12/19/2011 MAD[employer] EXPERT, ETELVINA L 486 Pneumonia Unspecified 12/19/2011 MAD[employer] EXPERT, ETELVINA L 786.2 Cough 12/19/2011 SALGUERO DO, LADONNA K 486 Pneumonia Unspecified 12/19/2011 SALGUERO DO, LADONNA K 786.2 Cough 12/19/2011 SALGUERO DO, LADONNA K 486 Pneumonia Unspecified 12/19/2011 SALGUERO DO, LADONNA K 786.2 Cough 12/19/2011 MAD[employer] EXPERT, ETELVINA L 486 Pneumonia Unspecified 12/19/2011 MADL [employer] EXPERT, ETELVINA L 786.2 Cough 12/19/2011 MADL [employer] EXPERT, ETELVINA L 486 Pneumonia Unspecified 12/19/2011 MADL [employer] EXPERT, ETELVINA L 786.2 Cough 12/19/2011 MADL [employer] EXPERT, ETELVINA L 486 Pneumonia Unspecified 12/19/2011 MADL [employer] EXPERT, ETELVINA L 786.2 Cough 12/19/2011 MADL [employer] EXPERT, ETELVINA L 486 Pneumonia Unspecified 12/19/2011 MADL [employer] EXPERT, ETELVINA L 786.2 Cough 12/19/2011 MADL [employer] EXPERT, ETELVINA L 486 Pneumonia Unspecified 12/19/2011 MADL [employer] EXPERT, ETELVINA L 786.2 Cough 12/19/2011 MADL [employer] EXPERT, ETELVINA L 486 Pneumonia Unspecified 12/19/2011 MAD[employer] EXPERT, ETELVINA L 786.2 Cough 12/19/2011 MADL [employer] EXPERT, ETELVINA L 486 Pneumonia Unspecified 12/19/2011 MAD[employer] EXPERT, ETELVINA L 786.2 Cough 12/19/2011 SALGUERO DO, LADONNA K 486 Pneumonia Unspecified 12/19/2011 SALGUERO DO, LADONNA K 786.2 Cough 12/19/2011 SALGUERO DO, LADONNA K 486 Pneumonia Unspecified 12/19/2011 SALGUERO DO, LADONNA K 786.2 Cough 12/19/2011 MAD[employer] EXPERT, ETELVINA L 486 Pneumonia Unspecified 12/19/2011 MADL [employer] EXPERT, ETELVINA L 786.2 Cough 12/19/2011 SALGUERO DO, LADONNA K 486 Pneumonia Unspecified 12/19/2011 SALGUERO DO, LADONNA K 786.2 Cough 12/19/2011 [employer]AD[employer] EXPERT, ETELVINA L 486 Pneumonia Unspecified 12/19/2011 [employer]AD[employer] EX[employer]ERT, ETELVINA L 786.2 Cough 01/06/2012 MORGAN HARRIS LAURIE S 491.9 BRONCHITIS, CHRONIC UNSPEC 01/06/2012 PALOMA MORA APRNNDA S 780.79 MALAISE AND FATIGUE 01/06/2012 491.9 Bronchitis, Chronic Unspec 01/06/2012 780.79 Malaise And Fatigue 01/06/2012 MORGAN [employer], LAURIE S 491.9 Bronchitis, Chronic Unspec 01/06/2012 MORGAN [employer] EXPERT, LAURIE S 780.79 Malaise And Fatigue 01/06/2012 MORGAN [employer] EXPERT, LAURIE S 491.9 Bronchitis, Chronic Unspec 01/06/2012 MORGAN [employer] EXPERT, LAURIE S 780.79 Malaise And Fatigue 01/06/2012 [...] K 780.79 Malaise And Fatigue 01/06/2012 [employer] EXPERT, ETELVINA L 491.9 Bronchitis, Chronic Unspec 01/06/2012 [employer] EXPERT, ETELVINA L 780.79 Malaise And Fatigue 01/06/2012 [employer] EXPERT, ETELVINA L 491.9 Bronchitis, Chronic Unspec 01/06/2012 [employer] EXPERT, ETELVINA L 780.79 Malaise And Fatigue 01/06/2012 [employer] EXPERT, ETELVINA L 491.9 Bronchitis, Chronic Unspec 01/06/2012 [employer]AD[employer] EXPERT, ETELVINA L 780.79 Malaise And Fatigue 01/06/2012 SALGUERO DO, LADONNA K 491.9 Bronchitis, Chronic Unspec 01/06/2012 SALGUERO DO, LADONNA K 780.79 Malaise And Fatigue 01/06/2012 SALGUERO DO, LADONNA K 491.9 Bronchitis, Chronic Unspec 01/06/2012 SALGUERO DO, LADONNA K 780.79 Malaise And Fatigue 01/06/2012 [employer] EXPERT, ETELVINA L 491.9 Bronchitis, Chronic Unspec 01/06/2012 [employer] EXPERT, ETELVINA L 780.79 Malaise And Fatigue 01/06/2012 M[employer] EXPERT, ETELVINA L 491.9 Bronchitis, Chronic Unspec 01/06/2012 MADL [employer] EXPERT, ETELVINA L 780.79 Malaise And Fatigue 01/06/2012 M[employer] EXPERT, ETELVINA L 491.9 Bronchitis, Chronic Unspec 01/06/2012 MAD[employer] EXPERT, ETELVINA L 780.79 Malaise And Fatigue 01/06/2012 MAD[employer] EXPERT, ETELVINA L 491.9 Bronchitis, Chronic Unspec 01/06/2012 [employer] EXPERT, ETELVINA L 780.79 Malaise And Fatigue 01/06/2012 MAD[employer] EXPERT, ETELVINA L 491.9 Bronchitis, Chronic Unspec 01/06/2012 MAD[employer] EXPERT, ETELVINA L 780.79 Malaise And Fatigue 01/06/2012 M[employer] EXPERT, ETELVINA L 491.9 Bronchitis, Chronic Unspec 01/06/2012 M[employer] EXPERT, ETELVINA L 780.79 Malaise And Fatigue 01/06/2012 M[employer] EXPERT, ETELVINA L 491.9 Bronchitis, Chronic Unspec 01/06/2012 M[employer] EXPERT, ETELVINA L 780.79 Malaise And Fatigue 01/06/2012 SALGUERO DO, LADONNA K 491.9 Bronchitis, Chronic Unspec 01/06/2012 SALGUERO DO, LADONNA K 780.79 Malaise And Fatigue 01/06/2012 SALGUERO DO, LADONNA K 491.9 Bronchitis, Chronic Unspec 01/06/2012 SALGUERO DO, LADONNA K 780.79 Malaise And Fatigue 01/06/2012 MADL AUTOMATION CONTROLS EXPERTETELVINA Bowser L 491.9 Bronchitis, Chronic Unspec 01/06/2012 [employer] EXPERT ETELVINA L 780.79 Malaise And Fatigue 01/06/2012 SALGUERO DO, LADONNA K 491.9 Bronchitis, Chronic Unspec 01/06/2012 SALGUERO DO, LADONNA K 780.79 Malaise And Fatigue 01/06/2012 [employer] EXPERT, ETELVINA L 491.9 Bronchitis, Chronic Unspec 01/06/2012 HUGOL AUT[employer] EXPERT ETELVINA L 780.79 Malaise And Fatigue 01/30/2012 [...] NOS 01/30/2012 Ot 414.01 CORONARY ATHEROSCLEROSIS OF [place] CORON 01/30/2012 Ot 424.1 AORTIC VALVE DISORDER [...] DISORDER 02/02/2012 Ot 414.01 CORONARY ATHEROSCLEROSIS OF [place] CORON 02/02/2012 Ot 458.9 HYPOTENSION NOS 02/02/2012 [...] Angioneurotic Edema Not Elsewhere Classified 02/04/2012 [employer] EXPERT, ETELVINA L 728.88 Rhabdomyolysis 02/04/2012 [employer]AD[employer] EXPERT, ETELVINA L 995.1 Angioneurotic Edema Not Elsewhere Classified 02/04/2012 [employer] EXPERT, ETELVINA L 728.88 Rhabdomyolysis 02/04/2012 [employer] EXPERT, ETELVINA L 995.1 Angioneurotic Edema Not Elsewhere Classified 02/04/2012 [employer] EXPERT, ETELVINA L 728.88 Rhabdomyolysis 02/04/2012 MAD[employer] EXPERT, ETELVINA L 995.1 Angioneurotic Edema Not Elsewhere Classified 02/04/2012 SALGUERO DO, LADONNA K 728.88 Rhabdomyolysis 02/04/2012 SALGUERO DO, LADONNA K 995.1 Angioneurotic Edema Not Elsewhere Classified 02/04/2012 SALGUERO DO, LADONNA K 728.88 Rhabdomyolysis 02/04/2012 SALGUERO DO, LADONNA K 995.1 Angioneurotic Edema Not Elsewhere Classified 02/04/2012 [employer]AD[employer] EXPERT, ETELVINA L 728.88 Rhabdomyolysis 02/04/2012 MAD[employer] EXPERT, ETELVINA L 995.1 Angioneurotic Edema Not Elsewhere Classified 02/04/2012 MADL [employer] EXPERT, ETELVINA L 728.88 Rhabdomyolysis 02/04/2012 MAD[employer] EXPERT, ETELVINA L 995.1 Angioneurotic Edema Not Elsewhere Classified 02/04/2012 MADL [employer] EXPERT, ETELVINA L 728.88 Rhabdomyolysis 02/04/2012 MAD[employer] EXPERT, ETELVINA L 995.1 Angioneurotic Edema Not Elsewhere Classified 02/04/2012 MAD[employer] EXPERT, ETELVINA L 728.88 Rhabdomyolysis 02/04/2012 MAD[employer] CONTR[employer] EXPERT, ETELVINA L 995.1 Angioneurotic Edema Not Elsewhere Classified 02/04/2012 [employer] EXPERT, ETELVINA L 728.88 Rhabdomyolysis 02/04/2012 MAD[employer] EXPERT, ETELVINA L 995.1 Angioneurotic Edema Not Elsewhere Classified 02/04/2012 [employer]AD[employer] EXPERT, ETELVINA L 728.88 Rhabdomyolysis 02/04/2012 MAD[employer] EXPERT, ETELVINA L 995.1 Angioneurotic Edema Not Elsewhere Classified 02/04/2012 [employer] EXPERT, ETELVINA L 728.88 Rhabdomyolysis 02/04/2012 M[employer] EXPERT, ETELVINA L 995.1 Angioneurotic Edema Not Elsewhere Classified 02/04/2012 SALGUERO DO, LADONNA K 728.88 Rhabdomyolysis 02/04/2012 SALGUERO DO, LADONNA K 995.1 Angioneurotic Edema Not Elsewhere Classified 02/04/2012 SALGUERO DO, LADONNA K 728.88 Rhabdomyolysis 02/04/2012 SALGUERO DO, LADONNA K 995.1 Angioneurotic Edema Not Elsewhere Classified 02/04/2012 [employer] EXPERT, ETELVINA L 728.88 Rhabdomyolysis 02/04/2012 [employer] EXPERT, ETELVINA L 995.1 Angioneurotic Edema Not Elsewhere Classified 02/04/2012 SALGUERO DO, LADONNA K 728.88 Rhabdomyolysis 02/04/2012 SALGUERO DO, LADONNA K 995.1 Angioneurotic Edema Not Elsewhere Classified 02/04/2012 MAD[employer] EXPERT, ETELVINA L 728.88 Rhabdomyolysis 02/04/2012 MAD[employer] EXPERT, ETELVINA L 995.1 Angioneurotic Edema Not Elsewhere [...] SALGUERO DO, LADONNA K 782.3 EDEMA 02/06/2012 SALUGERO DO, LADONNA K 782.3 EDEMA 02/06/2012 SALGUERO DO, LADONNA K 782.3 EDEMA 02/06/2012 [employer] EXPERT, ETELVINA L 782.3 EDEMA 02/06/2012 [employer] EXPERT, ETELVINA L 782.3 EDEMA 02/06/2012 M[employer] EXPERT, ETELVINA L 782.3 EDEMA 02/06/2012 SALGUERO DO, LADONNA K 782.3 EDEMA 02/06/2012 SALGUERO DO, LADONNA K 782.3 EDEMA 02/06/2012 [employer] EXPERT, ETELVINA L 782.3 EDEMA 02/06/2012 MAD[employer] CONTR[employer] EXPERT, ETELVINA L 782.3 EDEMA 02/06/2012 [employer] EXPERT, ETELVINA L 782.3 EDEMA 02/06/2012 [employer] EXPERT, ETELVINA L 782.3 EDEMA 02/06/2012 MAD[employer] CONTR[employer] EXPERT, ETELVINA L 782.3 EDEMA 02/06/2012 MAD[employer] EXPERT, ETELVINA L 782.3 EDEMA 02/06/2012 MAD[employer] CONTR[employer] EXPERT, ETELVINA L 782.3 EDEMA 02/06/2012 SALGUERO DO, LADONNA K 782.3 EDEMA 02/06/2012 SALGUERO DO, LADONNA K 782.3 EDEMA 02/06/2012 [employer] EXPERT, ETELVINA L 782.3 EDEMA 02/06/2012 SALGUERO DO, LADONNA K 782.3 EDEMA 02/06/2012 [employer] EXPERT, ETELVINA L 782.3 EDEMA 02/11/2012 MORGAN [employer] EXPERT, LAURIE S 079.99 VIRAL SYNDROME 02/11/2012 079.99 Viral Syndrome 02/11/2012 [employer]ORGAN [employer] EXPERT, LAURIE S 079.99 Viral Syndrome 02/11/2012 MORGAN [employer] EXPERT, LAURIE S 079.99 Viral Syndrome 02/11/2012 ROMELIA [...] DOA K 079.99 Viral Syndrome 02/11/2012 [employer] EXPERT, ETELVINA L 079.99 Viral Syndrome 02/11/2012 [employer] EXPERT, ETELVINA L 079.99 Viral Syndrome 02/11/2012 MAD[employer] CONTR[employer] EXPERT, ETELVINA L 079.99 Viral Syndrome 02/11/2012 NOEMY PRAKASH LADONNA K 079.99 Viral Syndrome 02/11/2012 SALGUERO DO LADONNA K 079.99 Viral Syndrome 02/11/2012 [employer] EXPERT, ETELVINA L 079.99 Viral Syndrome 02/11/2012 MAD[employer] EXPERT, ETELVINA L 079.99 Viral Syndrome 02/11/2012 MAD[employer] EXPERT, ETELVINA L 079.99 Viral Syndrome 02/11/2012 MADL [employer] CONTR[employer]S EXPERT, ETELVINA L 079.99 Viral Syndrome 02/11/2012 MAD[employer] EXPERT, ETELVINA L 079.99 Viral Syndrome 02/11/2012 MAD[employer] EXPERT, ETELVINA L 079.99 Viral Syndrome 02/11/2012 MAD[employer] CONTR[employer]S EXPERT, ETELVINA L 079.99 Viral Syndrome 02/11/2012 SALGUERO DO, LADONNA K 079.99 Viral Syndrome 02/11/2012 SALGUERO DO, LADONNA K 079.99 Viral Syndrome 02/11/2012 [employer] EXPERT, ETELVINA L 079.99 Viral Syndrome 02/11/2012 SALGUERO DO, LADONNA K 079.99 Viral Syndrome 02/11/2012 [employer] EXPERT, ETELVINA L 079.99 Viral Syndrome 02/17/2012 SUSHANT [...] LADONNA K 783.21 Weight Loss 02/17/2012 [employer] EXPERT, ETELVINA L 783.21 Weight Loss 02/17/2012 [employer] EXPERT, ETELVINA L 783.21 Weight Loss 02/17/2012 MAD[employer] EXPERT, ETELVINA L 783.21 Weight Loss 02/17/2012 SALGUERO DO, LADONNA K 783.21 Weight Loss 02/17/2012 SALGUERO DO, LADONNA K 783.21 Weight Loss 02/17/2012 [employer] EXPERT, ETELVINA L 783.21 Weight Loss 02/17/2012 MAD[employer] EXPERT, ETELVINA L 783.21 Weight Loss 02/17/2012 [employer] EXPERT, ETELVINA L 783.21 Weight Loss 02/17/2012 M[employer] EXPERT, ETELVINA L 783.21 Weight Loss 02/17/2012 [employer] EXPERT, ETELVINA L 783.21 Weight Loss 02/17/2012 MAD[employer] CONTR[employer]S EXPERT, ETELVINA L 783.21 Weight Loss 02/17/2012 MAD[employer] EXPERT, ETELVINA L 783.21 Weight Loss 02/17/2012 SALGUERO DO, LADONNA K 783.21 Weight Loss 02/17/2012 SALGUERO DO, LADONNA K 783.21 Weight Loss 02/17/2012 [employer] EXPERT, ETELVINA L 783.21 Weight Loss 02/17/2012 SALGUERO DO, LADONNA K 783.21 Weight Loss 02/17/2012 [employer] EXPERT, ETELVINA L 783.21 Weight Loss 02/24/2012 MORGAN HARRIS LAURIE S 787.91 DIARRHEA 02/24/2012 787.91 Diarrhea 02/24/2012 MORGAN HARRIS LAURIE S 787.91 Diarrhea 02/24/2012 MORGAN HARRIS LAURIE S 787.91 Diarrhea 02/24/2012 AMAOD OLVERA, ROMELIA 787.91 Diarrhea 02/24/2012 KARYN OLVERA, [...] DO, LADONNA K 787.91 Diarrhea 02/24/2012 [employer] EXPERT, ETELVINA L 787.91 Diarrhea 02/24/2012 MADL [employer] EXPERT, ETELVINA L 787.91 Diarrhea 02/24/2012 MADL [employer] EXPERT, ETELVINA L 787.91 Diarrhea 02/24/2012 SALGUERO DO, LADONNA K 787.91 Diarrhea 02/24/2012 SALGUERO DO, LADONNA K 787.91 Diarrhea 02/24/2012 [employer] EXPERT, ETELVINA L 787.91 Diarrhea 02/24/2012 MADL [employer] EXPERT, ETELVINA L 787.91 Diarrhea 02/24/2012 M[employer] EXPERT, ETELVINA L 787.91 Diarrhea 02/24/2012 MAD[employer] EXPERT, ETELVINA L 787.91 Diarrhea 02/24/2012 M[employer] EXPERT, ETELVINA L 787.91 Diarrhea 02/24/2012 MADL [employer] EXPERT, ETELVINA L 787.91 Diarrhea 02/24/2012 M[employer] EXPERT, ETELVINA L 787.91 Diarrhea 02/24/2012 SALGUERO DO, LADONNA K 787.91 Diarrhea 02/24/2012 SALGUERO DO, LADONNA K 787.91 Diarrhea 02/24/2012 [employer] EXPERT, ETELVINA L 787.91 Diarrhea 02/24/2012 SALGUERO DO, LADONNA K 787.91 Diarrhea 02/24/2012 [employer] EXPERT, ETELVINA L 787.91 Diarrhea 04/07/2012 MORGAN AUTOMATION CONTROLS EXPERTLAURIE S 787.20 DYSPHAGIA, UNSPECIFIED 04/07/2012 787.20 Dysphagia, Unspecified 04/07/2012 MORGAN AUTOM[employer] CONTROLS EXPERTLAURIE S 787.20 Dysphagia, Unspecified 04/07/2012 MORGAN AUTOMATION CONTROLS EXPERTLAURIE S 787.20 Dysphagia, Unspecified 04/07/2012 AMADO OLVERA, [...] LADONNA K 787.20 Dysphagia, Unspecified 04/07/2012 [employer] EXPERT, ETELVINA L 787.20 Dysphagia, Unspecified 04/07/2012 MADL [employer] EXPERT, ETELVINA L 787.20 Dysphagia, Unspecified 04/07/2012 M[employer]L [employer] EXPERT, ETELVINA L 787.20 Dysphagia, Unspecified 04/07/2012 SALGUERO DO, LADONNA K 787.20 Dysphagia, Unspecified 04/07/2012 SALGUERO DO, LADONNA K 787.20 Dysphagia, Unspecified 04/07/2012 MADL [employer] EXPERT, ETELVINA L 787.20 Dysphagia, Unspecified 04/07/2012 MADL [employer] CONTR[employer]S EXPERT, ETELVINA L 787.20 Dysphagia, Unspecified 04/07/2012 MADL [employer] EXPERT, ETELVINA L 787.20 Dysphagia, Unspecified 04/07/2012 MADL [employer] EXPERT, ETELVINA L 787.20 Dysphagia, Unspecified 04/07/2012 MADL [employer] EXPERT, ETELVINA L 787.20 Dysphagia, Unspecified 04/07/2012 MADL [employer] CONTR[employer] EXPERT, ETELVINA L 787.20 Dysphagia, Unspecified 04/07/2012 MADL [employer] CONTR[employer] EXPERT, ETELVINA L 787.20 Dysphagia, Unspecified 04/07/2012 SALGUERO DO, LADONNA K 787.20 Dysphagia, Unspecified 04/07/2012 SALGUERO DO, LADONNA K 787.20 Dysphagia, Unspecified 04/07/2012 [employer]AD[employer] EXPERT, ETELVINA L 787.20 Dysphagia, Unspecified 04/07/2012 SALGUERO DO, LADONNA K 787.20 Dysphagia, Unspecified 04/07/2012 MAD[employer] EXPERT, ETELVINA L 787.20 Dysphagia, Unspecified 04/16/2012 Ot [...] APRN S V03.82 PPV23 (PNEUMOVAX) DX 09/07/2012 ALURIE MORA APRN S V76.10 BREAST CANCER SCREENING [...] Cervical Cancer Screening (pap Smear) 09/07/2012 NOEMY PRAKASHTEERA K V03.82 Ppv23 (pneumovax) Dx 09/07/2012 NOEMY [...] Cervical Cancer Screening (pap Smear) 09/07/2012 MADMaxine [employer] CONTR[employer] EXPERT, ETELVINA L V03.82 Ppv23 (pneumovax) Dx 09/07/2012 MADMaxine AUT[employer]ATION CONTR[employer] EXPERT, ETELVINA L V76.10 Breast Cancer Screening 09/07/2012 MADL [employer] EXPERT, ETELVINA L V76.12 Mammogram Screening 09/07/2012 MADMaxine AUTOMATION CONTR[employer]S EXPERT, ETELVINA L V76.2 Cervical Cancer Screening (pap Smear) 09/07/2012 MADMaxine AUTOM[employer] CONTR[employer] EXPERT, ETELVINA L V03.82 Ppv23 (pneumovax) Dx 09/07/2012 MADMaxine AUTOM[employer] CONTR[employer] EXPERT, ETELVINA L V76.10 Breast Cancer Screening 09/07/2012 MADL [employer] EXPERT, ETELVINA L V76.12 Mammogram Screening 09/07/2012 MADL AUT[employer] CONTR[employer] EXPERT, ETELVINA L V76.2 Cervical Cancer Screening (pap Smear) 09/07/2012 MADL [employer] EXPERT, ETELVINA L V03.82 Ppv23 (pneumovax) Dx 09/07/2012 MADL [employer] EXPERT, ETELVINA L V76.10 Breast Cancer Screening 09/07/2012 MADL [employer] CONTR[employer] EXPERT, ETELVINA L V76.12 Mammogram Screening 09/07/2012 MADL [employer] CONTR[employer] EXPERT, ETELVINA L V76.2 Cervical Cancer Screening (pap [...] Cervical Cancer Screening (pap Smear) 09/07/2012 MAD[employer] EXPERT, ETELVINA L V03.82 Ppv23 (pneumovax) Dx 09/07/2012 MADL [employer] EXPERT, ETELVINA L V76.10 Breast Cancer Screening 09/07/2012 MADL AUT[employer] CONTR[employer] EXPERT, ETELVINA L V76.12 Mammogram Screening 09/07/2012 MADL AUT[employer] EXPERT, ETELVINA L V76.2 Cervical Cancer Screening (pap Smear) 09/07/2012 MADL [employer] EXPERT, ETELVINA L V03.82 Ppv23 (pneumovax) Dx 09/07/2012 MADL [employer] EXPERT, ETELVINA L V76.10 Breast Cancer Screening 09/07/2012 MADL [employer] EXPERT, ETELVINA L V76.12 Mammogram Screening 09/07/2012 MADL [employer] EXPERT, ETELVINA L V76.2 Cervical Cancer Screening (pap Smear) 09/07/2012 MAD[employer] EXPERT, ETELVINA L V03.82 Ppv23 (pneumovax) Dx 09/07/2012 MAD AUTOMATION CONTROLS EXPERT, ETELVINA L V76.10 Breast Cancer Screening 09/07/2012 MAD AUTOMATION CONTROLS EXPERT, ETELVINA L V76.12 Mammogram Screening 09/07/2012 MAD AUTOMATION CONTROLS EXPERT, ETELVINA L V76.2 Cervical Cancer Screening (pap Smear) 09/07/2012 MAD AUTOMATION CONTROLS EXPERT, ETELVINA L V03.82 Ppv23 (pneumovax) Dx 09/07/2012 MAD AUTOMATION CONTROLS EXPERT, ETELVINA L V76.10 Breast Cancer Screening 09/07/2012 [facility] AUTOMATION CONTROLS EXPERT, ETELVINA L V76.12 Mammogram Screening 09/07/2012 [facility] AUTOMATION CONTROLS EXPERT, ETELVINA L V76.2 Cervical Cancer Screening (pap Smear) 09/07/2012 MAD AUT[employer]ATION CONTR[employer]S EXPERT, ETELVINA L V03.82 Ppv23 (pneumovax) Dx 09/07/2012 [facility] AUTOMATION CONTROLS EXPERT, ETELVINA L V76.10 Breast Cancer Screening 09/07/2012 [facility] AUTOMATION CONTROLS EXPERT, ETELVINA L V76.12 Mammogram Screening 09/07/2012 [facility] AUTOMATION CONTROLS EXPERT, ETELVINA L V76.2 Cervical Cancer Screening (pap Smear) 09/07/2012 MAD [employer] CONTR[employer]S EXPERT, ETELVINA L V03.82 Ppv23 (pneumovax) Dx 09/07/2012 MAD AUTOMATION CONTROLS EXPERT, ETELVINA L V76.10 Breast Cancer Screening 09/07/2012 [facility] AUTOMATION CONTROLS EXPERT, ETELVINA L V76.12 Mammogram Screening 09/07/2012 [facility] AUTOMATION CONTROLS EXPERT, ETELVINA L V76.2 Cervical Cancer Screening (pap Smear) 09/07/2012 MAD AUT[employer]ATION CONTR[employer]S EXPERT, ETELVINA L V03.82 Ppv23 (pneumovax) Dx 09/07/2012 MAD AUTOMATION CONTROLS EXPERT, ETELVINA L V76.10 Breast Cancer Screening 09/07/2012 MAD AUT[employer]ATION CONTROLS EXPERT, ETELVINA L V76.12 Mammogram Screening 09/07/2012 MAD AUT[employer] CONTROLS EXPERT, ETELVINA L V76.2 Cervical Cancer Screening (pap [...] Cervical Cancer Screening (pap Smear) 09/07/2012 MADL [employer]OMATION CONTROLS EXPERTHAMMADA L V03.82 Ppv23 (pneumovax) Dx 09/07/2012 MADL AUT[employer] CONTROLS EXPERT, ETELVINA L V76.10 Breast Cancer Screening 09/07/2012 MADL AUT[employer] CONTROLS EXPERT, ETELVINA L V76.12 Mammogram Screening 09/07/2012 MADL AUTOMATION CONTROLS EXPERTHAMMAD BowserA L V76.2 Cervical Cancer Screening (pap Smear) 09/07/2012 NOEMY PRAKASH LADONNA K V03.82 Ppv23 (pneumovax) Dx 09/07/2012 TERE SALGUERO DOA K V76.10 Breast Cancer Screening 09/07/2012 TERE SALGUERO DOA K V76.12 Mammogram Screening 09/07/2012 TERE SALGUERO DOA K V76.2 Cervical Cancer Screening (pap Smear) 09/07/2012 MADL [employer] CONTROLS EXPERT, ETELVINA L V03.82 Ppv23 (pneumovax) Dx 09/07/2012 MADL AUT[employer]ATION CONTROLS EXPERT, ETELVINA L V76.10 Breast Cancer Screening 09/07/2012 MADL AUT[employer]ATION CONTROLS EXPERT, ETELVINA L V76.12 Mammogram Screening 09/07/2012 MADL AUTOMATION CONTROLS EXPERT, ETELVINA L V76.2 Cervical Cancer Screening (pap Smear) 09/08/2012 Ot 305.1 TOBACCO USE DISORDER 09/08/2012 Ot 466.0 ACUTE BRONCHITIS 09/08/2012 Ot 786.2 COUGH 09/19/2012 Ot 305.1 TOBACCO USE DISORDER 09/19/2012 Ot 491.9 CHRONIC BRONCHITIS NOS 09/19/2012 Ot 780.79 OTH MALAISE FATIGUE 10/22/2012 MORGAN AUT[employer] CONTR[employer]S EXPERT, LAURIE S V58.69 high risk medication 10/22/2012 [...] medication for a long time 10/22/2012 MADL AUT[employer] CONTROLS EXPERT, ETELVINA L V58.69 taking high-risk medication for a long time 10/22/2012 MADL AUTOMATION CONTROLS EXPERTHAMMADA L V58.69 taking high-risk medication for a long time 10/22/2012 LADONNA SALGUERO DO K V58.69 taking high-risk medication for a long time 10/22/2012 LADONNA SALGUERO DO K V58.69 taking high-risk medication for a long time 10/22/2012 MADL AUTOMATION CONTROLS EXPERTETELVINA L V58.69 taking high-risk medication for a long time 10/22/2012 MADL AUTOMATION CONTROLS EXPERT ETELVINA L V58.69 taking high-risk medication for a long time 10/22/2012 MADL AUTOMATION CONTROLS EXPERTHAMMADA L V58.69 taking high-risk medication for a long time 10/22/2012 MADL AUTOMATION CONTROLS EXPERTHAMMADA L V58.69 taking high-risk medication for a long time 10/22/2012 MADL AUTOMATION CONTROLS EXPERTHAMMAD BowserA L V58.69 taking high-risk medication for a long time 10/22/2012 MADL AUTOMATION CONTROLS EXPERTHAMMADA L V58.69 taking high-risk medication for a long time 10/22/2012 MADL AUT[employer] CONTROLS EXPERT ETELVINA L V58.69 taking high-risk medication for a long time 10/22/2012 LADONNA SALGUERO DO K V58.69 taking high-risk medication for a long time 10/22/2012 LADONNA SALGUERO DO K V58.69 taking high-risk medication for a long time 10/22/2012 MADL AUTOMATION CONTROLS EXPERTETELVINA Bowser L V58.69 taking high-risk medication for a long time 10/22/2012 LADONNA SALGUERO DO K V58.69 taking high-risk medication for a long time 10/22/2012 MADL AUTOMATION CONTROLS EXPERTHAMMAD BowserA L V58.69 taking high-risk medication for a long time 10/26/2012 Ot 250.00 DIAB MELVA WO COMPL, TYPE II OR UNSPEC TY 10/26/2012 Ot 278.00 OBESITY, NOS 10/26/2012 Ot 300.00 ANXIETY STATE NOS 10/26/2012 Ot 305.1 TOBACCO USE DISORDER 10/26/2012 Ot 311 DEPRESSIVE DISORDER NEC 10/26/2012 Ot 401.9 HYPERTENSION NOS 10/26/2012 Ot 414.01 CORONARY ATHEROSCLEROSIS OF [place] CORON 10/26/2012 Ot 491.21 OBSTR CHRONIC BRONCHITIS, [...] K 465.9 UPPER RESPIRATORY INFECTION 11/01/2012 MADL AUT[employer] CONTR[employer]S EXPERT, ETELVINA L 465.9 UPPER RESPIRATORY INFECTION 11/01/2012 MADL AUTOMATION CONTROLS EXPERT, ETELVINA L 465.9 UPPER RESPIRATORY INFECTION 11/01/2012 MADL AUTOMATION CONTROLS EXPERT, ETELVINA L 465.9 UPPER RESPIRATORY INFECTION 11/01/2012 SALGUERO DO, LADONNA K 465.9 UPPER RESPIRATORY INFECTION 11/01/2012 SALGUERO DO, LADONNA K 465.9 UPPER RESPIRATORY INFECTION 11/01/2012 [employer] EXPERT, ETELVINA L 465.9 UPPER RESPIRATORY INFECTION 11/01/2012 [employer] EXPERT, ETELVINA L 465.9 UPPER RESPIRATORY INFECTION 11/01/2012 [employer] EXPERT, ETELVINA L 465.9 UPPER RESPIRATORY INFECTION 11/01/2012 [employer] EXPERT, ETELVINA L 465.9 UPPER RESPIRATORY INFECTION 11/01/2012 [employer] EXPERT, ETELVINA L 465.9 UPPER RESPIRATORY INFECTION 11/01/2012 [employer] EXPERT, ETELVINA L 465.9 UPPER RESPIRATORY INFECTION 11/01/2012 [employer] EXPERT, ETELVINA L 465.9 UPPER RESPIRATORY INFECTION 11/01/2012 SALGUERO DO, LADONNA K 465.9 UPPER RESPIRATORY INFECTION 11/01/2012 SALGUERO DO, LADONNA K 465.9 UPPER RESPIRATORY INFECTION 11/01/2012 [employer] EXPERT, ETELVINA L 465.9 UPPER RESPIRATORY INFECTION 11/01/2012 SALGUERO DO, LADONNA K 465.9 UPPER RESPIRATORY INFECTION 11/01/2012 [employer] EXPERT, ETELVINA L 465.9 UPPER RESPIRATORY INFECTION 11/13/2012 Ot 250.00 DIAB MELVA WO COMPL, TYPE II OR UNSPEC TY 11/13/2012 Ot 272.4 HYPERLIPIDEMIA NEC/NOS 11/13/2012 Ot 278.00 OBESITY, NOS 11/13/2012 Ot 300.00 ANXIETY STATE NOS 11/13/2012 Ot 305.1 TOBACCO USE DISORDER 11/13/2012 Ot 311 DEPRESSIVE DISORDER NEC 11/13/2012 Ot 401.9 HYPERTENSION NOS 11/13/2012 Ot 414.01 CORONARY ATHEROSCLEROSIS OF [place] CORON 11/13/2012 Ot 458.9 HYPOTENSION NOS 11/13/2012 [...] DO, LADONNA K 244.9 HYPOTHYROIDISM 12/02/2012 [employer] EX[employer]ERT, ETELVINA L 244.9 HYPOTHYROIDISM 12/02/2012 [employer] EX[employer]ERT, ETELVINA L 244.9 HYPOTHYROIDISM 12/02/2012 [employer] EXPERT, ETELVINA L 244.9 HYPOTHYROIDISM 12/02/2012 SALGUERO DO, LADONNA K 244.9 HYPOTHYROIDISM 12/02/2012 SALGUERO DO, LADONNA K 244.9 HYPOTHYROIDISM 12/02/2012 [employer] EX[employer], ETELVINA L 244.9 HYPOTHYROIDISM 12/02/2012 [employer] EXPERT, ETELVINA L 244.9 HYPOTHYROIDISM 12/02/2012 [employer] EXPERT, ETELVINA L 244.9 HYPOTHYROIDISM 12/02/2012 [employer] EXPERT, ETELVINA L 244.9 HYPOTHYROIDISM 12/02/2012 [employer] EXPERT, ETELVINA L 244.9 HYPOTHYROIDISM 12/02/2012 [employer] EXPERT, ETELVINA L 244.9 HYPOTHYROIDISM 12/02/2012 [employer] EXPERT, ETELVINA L 244.9 HYPOTHYROIDISM 12/02/2012 SALGUERO DO, LADONNA K 244.9 HYPOTHYROIDISM 12/02/2012 SALGUERO DO, LADONNA K 244.9 HYPOTHYROIDISM 12/02/2012 [employer] EX[employer], ETELVINA L 244.9 HYPOTHYROIDISM 12/02/2012 SALGUERO DO, LADONNA K 244.9 HYPOTHYROIDISM 12/02/2012 [employer] EX[employer], ETELVINA L 244.9 HYPOTHYROIDISM 12/26/2012 Ot 305.1 [...] DO LADONNA K 780.52 insomnia 02/08/2013 [employer] EX[employer], ETELVINA L 780.52 insomnia 02/08/2013 [employer] EX[employer], ETELVINA L 780.52 insomnia 02/08/2013 [employer] EXPERT, ETELVINA L 780.52 insomnia 02/08/2013 SALGUERO DO LADONNA K 780.52 insomnia 02/08/2013 SALGUERO DO, LADONNA K 780.52 insomnia 02/08/2013 [employer] EX[employer], ETELVINA L 780.52 insomnia 02/08/2013 [employer] EXPERT, ETELVINA L 780.52 insomnia 02/08/2013 [employer] EXPERT, ETELVINA L 780.52 insomnia 02/08/2013 [employer] EXPERT, ETELVINA L 780.52 insomnia 02/08/2013 [employer] EX[employer], ETELVINA L 780.52 insomnia 02/08/2013 [employer]AD[employer] AUTOMATION CONTROLS EXPERT, ETELVINA L 780.52 insomnia 02/08/2013 MADL AUTOMATION CONTROLS EXPERT, ETELVINA L 780.52 insomnia 02/08/2013 SALGUERO DO LADONNA K 780.52 insomnia 02/08/2013 SALGUERO DO LADONNA K 780.52 insomnia 02/08/2013 MADL AUTOMATION CONTROLS EXPERT, ETELVINA L 780.52 insomnia 02/08/2013 SALGUERO DO, LADONNA K 780.52 insomnia 02/08/2013 MADL AUTOMATION CONTROLS EXPERT, ETELVINA L 780.52 insomnia 04/17/2013 REHAN OLVERA, [...] LADONNA K 719.07 EDEMA FOOT 06/03/2013 MADL AUTOMATION CONTROLS EXPERT, ETELVINA L 110.1 ONYCHOMYCOSIS 06/03/2013 MADL AUTOMATION CONTROLS EXPERT, ETELVINA L 719.07 EDEMA FOOT 06/03/2013 MADL AUTOMATION CONTROLS EXPERT, ETELVINA L 110.1 ONYCHOMYCOSIS 06/03/2013 MADL AUTOMATION CONTROLS EXPERT, ETELVINA L 719.07 EDEMA FOOT 06/03/2013 MADL AUTOMATION CONTROLS EXPERT, ETELVINA L 110.1 ONYCHOMYCOSIS 06/03/2013 MADL AUTOMATION CONTROLS EXPERT, ETELVINA L 719.07 EDEMA FOOT 06/03/2013 SALGUERO DO, LADONNA K 110.1 ONYCHOMYCOSIS 06/03/2013 SALGUERO DO, LADONNA K 719.07 EDEMA FOOT 06/03/2013 SALGUERO DO, LADONNA K 110.1 ONYCHOMYCOSIS 06/03/2013 SALGUERO DO, LADONNA K 719.07 EDEMA FOOT 06/03/2013 MADL AUTOMATION CONTROLS EXPERT, ETELVINA L 110.1 ONYCHOMYCOSIS 06/03/2013 MADL AUTOMATION CONTROLS EXPERT, ETELVINA L 719.07 EDEMA FOOT 06/03/2013 MADL AUTOMATION CONTROLS EXPERT, ETELVINA L 110.1 ONYCHOMYCOSIS 06/03/2013 MADL AUTOMATION CONTROLS EXPERT, ETELVINA L 719.07 EDEMA FOOT 06/03/2013 MADL AUTOMATION CONTROLS EXPERT, ETELVINA L 110.1 ONYCHOMYCOSIS 06/03/2013 MADL AUTOMATION CONTROLS EXPERT, ETELVINA L 719.07 EDEMA FOOT 06/03/2013 MADL AUTOMATION CONTROLS EXPERT, ETELVINA L 110.1 ONYCHOMYCOSIS 06/03/2013 MADL AUTOMATION CONTROLS EXPERT, ETELVINA L 719.07 EDEMA FOOT 06/03/2013 MADL AUTOMATION CONTROLS EXPERT, ETELVINA L 110.1 ONYCHOMYCOSIS 06/03/2013 MADL AUTOMATION CONTROLS EXPERT, ETELVINA L 719.07 EDEMA FOOT 06/03/2013 MADL AUTOMATION CONTROLS EXPERT, ETELVINA L 110.1 ONYCHOMYCOSIS 06/03/2013 MADL AUTOMATION CONTROLS EXPERT, ETELVINA L 719.07 EDEMA FOOT 06/03/2013 MADL AUTOMATION CONTROLS EXPERT, ETELVINA L 110.1 ONYCHOMYCOSIS 06/03/2013 MADL AUTOMATION CONTROLS EXPERT, ETELVINA L 719.07 EDEMA FOOT 06/03/2013 SALGUERO DO, LADONNA K 110.1 ONYCHOMYCOSIS 06/03/2013 SALGUERO DO, LADONNA K 719.07 EDEMA FOOT 06/03/2013 SALGUERO DO, LADONNA K 110.1 ONYCHOMYCOSIS 06/03/2013 SALGUERO DO, LADONNA K 719.07 EDEMA FOOT 06/03/2013 MADL AUTOMATION CONTROLS EXPERT, ETELVINA L 110.1 ONYCHOMYCOSIS 06/03/2013 MADL AUTOMATION CONTROLS EXPERT, ETELVINA L 719.07 EDEMA FOOT 06/03/2013 SALGUERO DO, LADONNA K 110.1 ONYCHOMYCOSIS 06/03/2013 SALGUERO DO, LADONNA K 719.07 EDEMA FOOT 06/03/2013 MADL AUTOMATION CONTROLS EXPERT, ETELVINA L 110.1 ONYCHOMYCOSIS 06/03/2013 MADL AUTOMATION CONTROLS EXPERT, ETELVINA L 719.07 EDEMA FOOT 08/03/2013 EDUARDO [...] LADONNA K 595.0 ACUTE CYSTITIS 08/25/2013 MADL AUTOMATION CONTROLS EXPERT, ETELVINA L 311 depression 08/25/2013 MADL AUTOMATION CONTROLS EXPERT, ETELVINA L 595.0 ACUTE CYSTITIS 08/25/2013 MADL AUTOMATION CONTROLS EXPERT, ETELVINA L 311 depression 08/25/2013 MADL AUTOMATION CONTROLS EXPERT, ETELVINA L 595.0 ACUTE CYSTITIS 08/25/2013 MADL AUTOMATION CONTROLS EXPERT, ETELVINA L 311 depression 08/25/2013 MADL AUTOMATION CONTROLS EXPERT, ETELVINA L 595.0 ACUTE CYSTITIS 08/25/2013 SALGUERO DO, LADONNA K 311 depression 08/25/2013 SALGUERO DO, LADONNA K 595.0 ACUTE CYSTITIS 08/25/2013 SALGUERO DO, LADONNA K 311 depression 08/25/2013 SALGUERO DO, LADONNA K 595.0 ACUTE CYSTITIS 08/25/2013 MADL AUTOMATION CONTROLS EXPERT, ETELVINA L 311 depression 08/25/2013 MADL AUTOMATION CONTROLS EXPERT, ETELVINA L 595.0 ACUTE CYSTITIS 08/25/2013 MADL AUTOMATION CONTROLS EXPERT, ETELVINA L 311 depression 08/25/2013 MADL AUTOMATION CONTROLS EXPERT, ETELVINA L 595.0 ACUTE CYSTITIS 08/25/2013 MADL AUTOMATION CONTROLS EXPERT, ETELVINA L 311 depression 08/25/2013 MADL AUTOMATION CONTROLS EXPERT, ETELVINA L 595.0 ACUTE CYSTITIS 08/25/2013 MADL AUTOMATION CONTROLS EXPERT, ETELVINA L 311 depression 08/25/2013 MADL AUTOMATION CONTROLS EXPERT, ETELVINA L 595.0 ACUTE CYSTITIS 08/25/2013 MADL AUTOMATION CONTROLS EXPERT, ETELVINA L 311 depression 08/25/2013 MADL AUTOMATION CONTROLS EXPERT, ETELVINA L 595.0 ACUTE CYSTITIS 08/25/2013 MADL AUTOMATION CONTROLS EXPERT, ETELVINA L 311 depression 08/25/2013 MADL AUTOMATION CONTROLS EXPERT, ETELVINA L 595.0 ACUTE CYSTITIS 08/25/2013 MADL AUTOMATION CONTROLS EXPERT, ETELVINA L 311 depression 08/25/2013 MADL AUTOMATION CONTROLS EXPERT, ETELVINA L 595.0 ACUTE CYSTITIS 08/25/2013 SALGUERO DO, LADONNA K 311 depression 08/25/2013 SALGUERO DO, LADONNA K 595.0 ACUTE CYSTITIS 08/25/2013 SALGUERO DO, LADONNA K 311 depression 08/25/2013 SALGUERO DO, LADONNA K 595.0 ACUTE CYSTITIS 08/25/2013 MADL AUTOMATION CONTROLS EXPERT, ETELVINA L 311 depression 08/25/2013 MADL AUTOMATION CONTROLS EXPERT, ETELVINA L 595.0 ACUTE CYSTITIS 08/25/2013 SALGUERO DO, LADONNA K 311 depression 08/25/2013 SALGUERO DO, LADONNA K 595.0 ACUTE CYSTITIS 08/25/2013 MADL AUTOMATION CONTROLS EXPERT, ETELVINA L 311 depression 08/25/2013 MADL AUTOMATION CONTROLS EXPERT, ETELVINA L 595.0 ACUTE CYSTITIS 09/02/2013 SALGUERO [...] LADONNA K 709.8 FISSURES SKIN 09/02/2013 MADL AUTOMATION CONTROLS EXPERT, ETELVINA L 709.8 FISSURES SKIN 09/02/2013 MADL AUTOMATION CONTROLS EXPERT, ETELVINA L 709.8 FISSURES SKIN 09/02/2013 MADL AUTOMATION CONTROLS EXPERT, ETELVINA L 709.8 FISSURES SKIN 09/02/2013 SALGUERO DO, LADONNA K 709.8 FISSURES SKIN 09/02/2013 SALGUERO DO, LADONNA K 709.8 FISSURES SKIN 09/02/2013 MADL AUTOMATION CONTROLS EXPERT, ETELVINA L 709.8 FISSURES SKIN 09/02/2013 MADL AUTOMATION CONTROLS EXPERT, ETELVINA L 709.8 FISSURES SKIN 09/02/2013 MADL AUTOMATION CONTROLS EXPERT, ETELVINA L 709.8 FISSURES SKIN 09/02/2013 MADL AUTOMATION CONTROLS EXPERT, ETELVINA L 709.8 FISSURES SKIN 09/02/2013 MADL AUTOMATION CONTROLS EXPERT, ETELVINA L 709.8 FISSURES SKIN 09/02/2013 MADL AUTOMATION CONTROLS EXPERT, ETELVINA L 709.8 FISSURES SKIN 09/02/2013 MADL AUTOMATION CONTROLS EXPERT, ETELVINA L 709.8 FISSURES SKIN 09/02/2013 SALGUERO DO, LADONNA K 709.8 FISSURES SKIN 09/02/2013 SALGUERO DO, LADONNA K 709.8 FISSURES SKIN 09/02/2013 MADL AUTOMATION CONTROLS EXPERT, ETELVINA L 709.8 FISSURES SKIN 09/02/2013 SALGUERO DO, LADONNA K 709.8 FISSURES SKIN 09/02/2013 MADL AUTOMATION CONTROLS EXPERT, ETELVINA L 709.8 FISSURES SKIN 09/22/2013 BYRON [...] 788.1 pain during urination (dysuria) 09/22/2013 MADL AUTOMATION CONTROLS EXPERT, ETELVINA L 788.1 pain during urination (dysuria) 09/22/2013 MADL AUTOMATION CONTROLS EXPERT, ETELVINA L 788.1 pain during urination (dysuria) 09/22/2013 MADL AUTOMATION CONTROLS EXPERT, ETELVINA L 788.1 pain during urination (dysuria) 09/22/2013 SALGUERO DO, LADONNA K 788.1 PAIN DURING URINATION (DYSURIA) 09/22/2013 SALGUERO DO, LADONNA K 788.1 PAIN DURING URINATION (DYSURIA) 09/22/2013 MADL AUTOMATION CONTROLS EXPERT, ETELVINA L 788.1 PAIN DURING URINATION (DYSURIA) 09/22/2013 MADL AUTOMATION CONTROLS EXPERT, ETELVINA L 788.1 PAIN DURING URINATION (DYSURIA) 09/22/2013 MADL AUTOMATION CONTROLS EXPERT, ETELVINA L 788.1 PAIN DURING URINATION (DYSURIA) 09/22/2013 MADL AUTOMATION CONTROLS EXPERT, ETELVINA L 788.1 PAIN DURING URINATION (DYSURIA) 09/22/2013 MADL AUTOMATION CONTROLS EXPERT, ETELVINA L 788.1 PAIN DURING URINATION (DYSURIA) 09/22/2013 MADL AUTOMATION CONTROLS EXPERT, ETELVINA L 788.1 PAIN DURING URINATION (DYSURIA) 09/22/2013 MADL AUTOMATION CONTROLS EXPERT, ETELVINA L 788.1 PAIN DURING URINATION (DYSURIA) 09/22/2013 SALGUERO DO LADONNA K 788.1 PAIN DURING URINATION (DYSURIA) 09/22/2013 SALGUERO DO, LADONNA K 788.1 PAIN DURING URINATION (DYSURIA) 09/22/2013 MADL AUTOMATION CONTROLS EXPERT, ETELVINA L 788.1 PAIN DURING URINATION (DYSURIA) 09/22/2013 SALGUERO DO, LADONNA K 788.1 PAIN DURING URINATION (DYSURIA) 09/22/2013 MADMaxine AUTOMATION CONTROLS EXPERT, ETELVINA L 788.1 PAIN DURING URINATION (DYSURIA) 10/22/2013 EDUARDO VILLEGAS MD Ot 596.51 HYPERTONICITY OF BLADDER 10/22/2013 EDUARDO VILLEGAS MD Ot 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 10/22/2013 EDUARDO VILLEGAS MD Ot 788.30 UNSPECIFIED URINARY INCONTINENCE 10/22/2013 EDUARDO VILLEGAS MD Ot V58.69 [facility] MED,LT,CURRENT USE 10/25/2013 HARDEEP DORANTES Ot 892.0 OPEN WOUND OF FOOT 10/25/2013 HARDEEP DORANTES Ot 959.7 LOWER LEG INJURY NOS 10/25/2013 HARDEEP DORANTES Ot E000.8 OTHER EXTERNAL CAUSE STATUS 10/25/2013 HARDEEP DORANTES Ot E849.0 ACCIDENT IN HOME 10/25/2013 HARDEEP DORANTES Ot E916 STRUCK BY FALLING OBJECT 10/25/2013 HARDEEP DORANTES Ot V06.1 [id number], COMBINED [ 11/04/2013 MARLA EVERETT MD, Ot [...] LADONNA K Ot 414.01 CORONARY ATHEROSCLEROSIS OF [place] CORON 02/11/2014 NOEMY PRAKASH LADONNA K Ot [...] MASS INDEX 39.0-39.9, ADULT 02/13/2014 THOMPSON QURESHI AUTOMATION CONTROLS EXPERT Ot 724.5 BACKACHE NOS 02/27/2014 TERE SALGUERO DOA K 381.01 ACUTE SEROUS OTITIS MEDIA 02/27/2014 NOEMY PRAKASH LADONNA K 381.01 ACUTE SEROUS OTITIS MEDIA 02/27/2014 NOEMY PRAKASH LADONNA K 381.01 ACUTE SEROUS OTITIS MEDIA 02/27/2014 SALGUERO DO LADONNA K 381.01 ACUTE SEROUS OTITIS MEDIA 02/27/2014 ETELVINA LEONARD APRN 381.01 ACUTE SEROUS OTITIS MEDIA 02/27/2014 MADL AUTOMATION CONTROLS EXPERT, ETELVINA L 381.01 ACUTE SEROUS OTITIS MEDIA 02/27/2014 MADL AUTOMATION CONTROLS EXPERT, ETELVINA L 381.01 ACUTE SEROUS OTITIS MEDIA 02/27/2014 SALGUERO DO, LADONNA K 381.01 ACUTE SEROUS OTITIS MEDIA 02/27/2014 SALGUERO DO, LADONNA K 381.01 ACUTE SEROUS OTITIS MEDIA 02/27/2014 MADL AUTOMATION CONTROLS EXPERT, ETELVINA L 381.01 ACUTE SEROUS OTITIS MEDIA 02/27/2014 MADL AUTOMATION CONTROLS EXPERT, ETELVINA L 381.01 ACUTE SEROUS OTITIS MEDIA 02/27/2014 MADL AUTOMATION CONTROLS EXPERT, ETELVINA L 381.01 ACUTE SEROUS OTITIS MEDIA 02/27/2014 MADL AUTOMATION CONTROLS EXPERT, ETELVINA L 381.01 ACUTE SEROUS OTITIS MEDIA 02/27/2014 MADL AUTOMATION CONTROLS EXPERT, ETELVINA L 381.01 ACUTE SEROUS OTITIS MEDIA 02/27/2014 MADL AUTOMATION CONTROLS EXPERT, ETELVINA L 381.01 ACUTE SEROUS OTITIS MEDIA 02/27/2014 MADL AUTOMATION CONTROLS EXPERT, ETELVINA L 381.01 ACUTE SEROUS OTITIS MEDIA 02/27/2014 SALGUERO DO, LADONNA K 381.01 ACUTE SEROUS OTITIS MEDIA 02/27/2014 SALGUERO DO, LADONNA K 381.01 ACUTE SEROUS OTITIS MEDIA 02/27/2014 MADL AUTOMATION CONTROLS EXPERT, ETELVINA L 381.01 ACUTE SEROUS OTITIS MEDIA 02/27/2014 SALGUERO DO, LADONNA K 381.01 ACUTE SEROUS OTITIS MEDIA 02/27/2014 MADL AUTOMATION CONTROLS EXPERT, ETELVINA L 381.01 ACUTE SEROUS OTITIS MEDIA 05/22/2014 MADL AUTOMATION CONTROLS EXPERT, ETELVINA L V16.0 FAMILY HISTORY OF MALIGNANT NEOPLASM OF GASTROINTESTINAL TRACT 05/22/2014 MADL AUTOMATION CONTROLS EXPERT, ETELVINA L V16.0 FAMILY HISTORY OF MALIGNANT NEOPLASM OF GASTROINTESTINAL TRACT 05/22/2014 SALGUERO DO, LADONNA K V16.0 FAMILY HISTORY OF MALIGNANT NEOPLASM OF GASTROINTESTINAL TRACT 05/22/2014 SALGUERO DO, LADONNA K V16.0 FAMILY HISTORY OF MALIGNANT NEOPLASM OF GASTROINTESTINAL TRACT 05/22/2014 MADL AUTOMATION CONTROLS EXPERT, ETELVINA L V16.0 FAMILY HISTORY OF MALIGNANT NEOPLASM OF GASTROINTESTINAL TRACT 05/22/2014 MADL AUTOMATION CONTROLS EXPERT, ETELVINA L V16.0 FAMILY HISTORY OF MALIGNANT NEOPLASM OF GASTROINTESTINAL TRACT 05/22/2014 MADL AUTOMATION CONTROLS EXPERT, ETELVINA L V16.0 FAMILY HISTORY OF MALIGNANT NEOPLASM OF GASTROINTESTINAL TRACT 05/22/2014 MADL AUTOMATION CONTROLS EXPERT, ETELVINA L V16.0 FAMILY HISTORY OF MALIGNANT NEOPLASM OF GASTROINTESTINAL TRACT 05/22/2014 MADL AUTOMATION CONTROLS EXPERT, ETELVINA L V16.0 FAMILY HISTORY OF MALIGNANT NEOPLASM OF GASTROINTESTINAL TRACT 05/22/2014 MADL AUTOMATION CONTROLS EXPERT, ETELVINA L V16.0 FAMILY HISTORY OF MALIGNANT NEOPLASM OF GASTROINTESTINAL TRACT 05/22/2014 MADL AUTOMATION CONTROLS EXPERT, ETELVINA L V16.0 FAMILY HISTORY OF MALIGNANT NEOPLASM OF GASTROINTESTINAL TRACT 05/22/2014 SALGUERO DO LADONNA K V16.0 FAMILY HISTORY OF MALIGNANT NEOPLASM OF GASTROINTESTINAL TRACT 05/22/2014 SALGUERO DO LADONNA K V16.0 FAMILY HISTORY OF MALIGNANT NEOPLASM OF GASTROINTESTINAL TRACT 05/22/2014 MADL AUTOMATION CONTROLS EXPERT, ETELVINA L V16.0 FAMILY HISTORY OF MALIGNANT NEOPLASM OF GASTROINTESTINAL TRACT 05/22/2014 SALGUERO DO LADONNA K V16.0 FAMILY HISTORY OF MALIGNANT NEOPLASM OF GASTROINTESTINAL TRACT 05/22/2014 AISHA AUTOMATION CONTROLS EXPERT, ETELVINA L V16.0 FAMILY HISTORY OF MALIGNANT [...] FACP CCDS Ot 414.01 CORONARY ATHEROSCLEROSIS OF [place] CORON 05/23/2014 BRADLY KIRBY MD, FACC FACP [...] SALDANA MD Ot 414.01 CORONARY ATHEROSCLEROSIS OF [place] CORON 06/05/2014 SHANA OLVERA, JEFERSON Bruner Ot [...] MD Ot 553.3 DIAPHRAGMATIC HERNIA 08/28/2014 MADL AUTOMATION CONTROLS EXPERT, ETELVINA L 381.01 ACUTE SEROUS OTITIS MEDIA 08/28/2014 MADL AUTOMATION CONTROLS EXPERT, ETELVINA L 799.02 HYPOXIA 08/28/2014 MADL AUTOMATION CONTROLS EXPERT, ETELVINA L V04.81 FLU SHOT 08/28/2014 MADL AUTOMATION CONTROLS EXPERT, ETELVINA L 381.01 ACUTE SEROUS OTITIS MEDIA 08/28/2014 MADL AUTOMATION CONTROLS EXPERT, ETELVINA L 799.02 HYPOXIA 08/28/2014 MADL AUTOMATION CONTROLS EXPERT, ETELVINA L V04.81 FLU SHOT 08/28/2014 MADL AUTOMATION CONTROLS EXPERT, ETELVINA L 381.01 ACUTE SEROUS OTITIS MEDIA 08/28/2014 MADL AUTOMATION CONTROLS EXPERT, ETELVINA L 799.02 HYPOXIA 08/28/2014 MADL AUTOMATION CONTROLS EXPERT, ETELVINA L V04.81 FLU SHOT 08/28/2014 MADL AUTOMATION CONTROLS EXPERT, ETELVINA L 381.01 ACUTE SEROUS OTITIS MEDIA 08/28/2014 MADL AUTOMATION CONTROLS EXPERT, ETELVINA L 799.02 HYPOXIA 08/28/2014 MADL AUTOMATION CONTROLS EXPERT, ETELVINA L V04.81 FLU SHOT 08/28/2014 MADL AUTOMATION CONTROLS EXPERT, ETELVINA L 381.01 ACUTE SEROUS OTITIS MEDIA 08/28/2014 MADL AUTOMATION CONTROLS EXPERT, ETELVINA L 799.02 HYPOXIA 08/28/2014 MADL AUTOMATION CONTROLS EXPERT, ETELVINA L V04.81 FLU SHOT 08/28/2014 MADL AUTOMATION CONTROLS EXPERT, ETELVINA L 381.01 ACUTE SEROUS OTITIS MEDIA 08/28/2014 MADL AUTOMATION CONTROLS EXPERT, ETELVINA L 799.02 HYPOXIA 08/28/2014 MADL AUTOMATION CONTROLS EXPERT, ETELVINA L V04.81 FLU SHOT 08/28/2014 MADL AUTOMATION CONTROLS EXPERT, ETELVINA L 381.01 ACUTE SEROUS OTITIS MEDIA 08/28/2014 MADL AUTOMATION CONTROLS EXPERT, ETELVINA L 799.02 HYPOXIA 08/28/2014 MADL AUTOMATION CONTROLS EXPERT, ETELVINA L V04.81 FLU SHOT 08/28/2014 SALGUERO DO, LADONNA K 381.01 ACUTE SEROUS OTITIS MEDIA 08/28/2014 SALGUERO DO, LADONNA K 799.02 HYPOXIA 08/28/2014 SALGUERO DO, LADONNA K V04.81 FLU SHOT 08/28/2014 SALGUERO DO, LADONNA K 381.01 ACUTE SEROUS OTITIS MEDIA 08/28/2014 SALGUERO DO, LADONNA K 799.02 HYPOXIA 08/28/2014 SALGUERO DO, LADONNA K V04.81 FLU SHOT 08/28/2014 MADL AUTOMATION CONTROLS EXPERT, ETELVINA L 381.01 ACUTE SEROUS OTITIS MEDIA 08/28/2014 MADL AUTOMATION CONTROLS EXPERT, ETELVINA L 799.02 HYPOXIA 08/28/2014 MADL AUTOMATION CONTROLS EXPERT, ETELVINA L V04.81 FLU SHOT 08/28/2014 SALGUERO DO, LADONNA K 381.01 ACUTE SEROUS OTITIS MEDIA 08/28/2014 SALGUERO DO, LADONNA K 799.02 HYPOXIA 08/28/2014 SALGUERO DO, LADONNA K V04.81 FLU SHOT 08/28/2014 MADL AUTOMATION CONTROLS EXPERT, ETELVINA L 381.01 ACUTE SEROUS OTITIS MEDIA 08/28/2014 MADL AUTOMATION CONTROLS EXPERT, ETELVINA L 799.02 HYPOXIA 08/28/2014 MADL ETELVINA HARRIS L V04.81 FLU SHOT 08/31/2014 THOMPSON QURESHI AUTOMATION CONTROLS EXPERT Ot 250.00 DIAB MELVA WO COMPL, TYPE II OR UNSPEC TY 08/31/2014 THOMPSON QURESHI AUTOMATION CONTROLS EXPERT Ot 305.1 TOBACCO USE DISORDER 08/31/2014 THOMPSON QURESHI AUTOMATION CONTROLS EXPERT Ot 382.9 OTITIS MEDIA NOS 08/31/2014 THOMPSON QURESHI APRN Ot 784.2 SWELLING IN HEAD NECK 08/31/2014 THOMPSON QURESHI AUTOMATION CONTROLS EXPERT Ot 910.4 INSECT BITE HEAD 08/31/2014 THOMPSON QURESHI APRN Ot E849.0 ACCIDENT IN HOME 08/31/2014 THOMPSON QURESHI APRN Ot E906.4 NONVENOM ARTHROPOD BITE 08/31/2014 THOMPSON QURESHI APRN Ot V58.67 LONG-TERM (CURRENT) USE OF INSULIN 09/01/2014 THOMPSON QURESHI APRN Ot 373.00 BLEPHARITIS NOS 09/01/2014 THOMPSON QURESHI AUTOMATION CONTROLS EXPERT Ot 379.92 SWELLING OR MASS OF EYE 10/01/2014 HUANG DO, FELICIA K Ot 272.0 PURE HYPERCHOLESTEROLEM 10/01/2014 HUANG DO, FELICIA K Ot 401.9 HYPERTENSION NOS 10/01/2014 HUANG DO, FELICAI K Ot 455.6 HEMORRHOIDS NOS 10/01/2014 HUANG DO, FELICIA K Ot 565.0 ANAL FISSURE 10/01/2014 HUANG DO, FELICIA K Ot 569.3 RECTAL ANAL HEMORRHAGE 10/23/2014 AISHA HARRIS, ETELVINA L 112.3 CANDIDIASIS OF SKIN AND NAILS 10/23/2014 MADL SARA HARRISWNYA L V03.82 PPV23 (PNEUMOVAX) DX 10/23/2014 MADL AUTOMATION CONTROLS EXPERT, ETEVLINA L 112.3 CANDIDIASIS OF SKIN AND NAILS [...] JOINT INVOLVING ANKLE AND FOOT 12/11/2014 HUGOL AUTOMATION CONTROLS EXPERTSARA BowserETELVINA L 719.46 PAIN IN JOINT INVOLVING LOWER LEG 12/11/2014 MADL AUTOMATION CONTROLS EXPERTANDREZ BowserNYA L 719.47 PAIN IN JOINT INVOLVING ANKLE AND FOOT 12/11/2014 SALGUERO DO LADONNA K 719.46 PAIN IN JOINT INVOLVING LOWER LEG 12/11/2014 NOEMY PRAKASH LADONNA K 719.47 PAIN IN JOINT INVOLVING ANKLE AND FOOT 12/11/2014 MADL SARA HARRISWNYA L 719.46 PAIN IN JOINT INVOLVING LOWER LEG 12/11/2014 MADL AUTOMATION CONTROLS EXPERTANDREZ BowserNYA L 719.47 PAIN IN JOINT INVOLVING ANKLE AND FOOT 12/30/2014 INES REYNOSO MD Ot 250.00 DIAB MELVA WO COMPL, TYPE II OR UNSPEC TY 12/30/2014 INES REYNOSO MD Ot 305.1 TOBACCO USE DISORDER 12/30/2014 NIES REYNOSO MD Ot 401.9 HYPERTENSION NOS 12/30/2014 INES REYNOSO MD Ot 486 PNEUMONIA, ORGANISM NOS 12/30/2014 INES REYNOSO MD Ot 786.05 SHORTNESS OF BREATH 12/30/2014 INES REYNOSO MD Ot V58.67 LONG-TERM (CURRENT) USE OF INSULIN 12/30/2014 INES REYNOSO MD Ot V58.69 OTH MED,LT,CURRENT USE 02/09/2015 AISHA HARRIS, ETELVINA L 735.4 HAMMER TOE (ACQUIRED) 02/09/2015 AISHA HARRIS, ETELVINA L 757.39 POROKEROTOSIS 02/09/2015 MADL AUTOMATION CONTROLS EXPERT, ETELVINA L 788.1 DYSURIA 02/09/2015 MADL AUTOMATION CONTROLS EXPERT, ETELVINA L 789.02 ABDOMINAL PAIN LEFT UPPER QUADRANT 02/09/2015 NOEMY PRAKASH LADONNA K 735.4 HAMMER TOE (ACQUIRED) 02/09/2015 NOEMY DO LADONNA K 757.39 POROKEROTOSIS 02/09/2015 SALGUERO DO LADONNA K 788.1 DYSURIA 02/09/2015 NOEMY PRAKASH LADONNA K 789.02 ABDOMINAL PAIN LEFT UPPER QUADRANT 02/09/2015 MADL AUTOMATION CONTROLS EXPERT, ETELVINA L 735.4 HAMMER TOE (ACQUIRED) 02/09/2015 AISHA HARRIS, ETELVINA L 757.39 POROKEROTOSIS 02/09/2015 HUGOL KIMBERLY, ETELVINA L 788.1 DYSURIA 02/09/2015 AISHA HARRIS, ETELVINA L 789.02 ABDOMINAL PAIN LEFT UPPER QUADRANT 02/19/2015 MADL KIMBERLY, ETELVINA L 780.2 SYNCOPE AND COLLAPSE 02/19/2015 SALGUERO DO, LADONNA K 780.2 SYNCOPE AND COLLAPSE 02/19/2015 MADL AUTOMATION CONTROLS EXPERT, ETELVINA L 780.2 SYNCOPE AND COLLAPSE 02/20/2015 QUE LEON MD Ot 250.00 DIAB MELVA WO COMPL, TYPE II OR UNSPEC TY 02/20/2015 QUE LEON MD Ot 305.1 TOBACCO USE DISORDER 02/20/2015 QUE LEON MD Ot 401.9 HYPERTENSION NOS 02/20/2015 QUE LEON MD Ot 414.01 CORONARY ATHEROSCLEROSIS OF [place] CORON 02/20/2015 QUE LEON MD Ot 458.0 ORTHOSTATIC HYPOTENSION 02/20/2015 QUE LEON MD Ot 584.9 ACUTE RENAL FAILURE, UNSPECIFIED 02/20/2015 QUE LEON MD Ot V15.88 HISTORY OF FALL 02/27/2015 ETELVINA LEONARD APRN L 593.9 UNSPECIFIED DISORDER OF KIDNEY AND URETER 03/01/2015 HAMMAD LEONARDA L SHOE DYER Ot 414.00 03/01/2015 HAMMAD LEONARDA L SHOE DYER Ot 780.2 03/01/2015 MADHAMMAD GoodmanA L SHOE DYER Ot V45.82 03/26/2015 Ot 786.09 03/26/2015 Ot [...] Garcia Ot V74.8 03/26/2015 BAIKYLAH ABAD L SHOE DYER Ot 396.3 03/26/2015 BAIMA KYLAH L SHOE DYER Ot 397.0 03/26/2015 BAIJENNIFFER KYLAH L SHOE DYER Ot 401.9 03/26/2015 BAIJENNIFFER KYLAH L SHOE DYER Ot 414.00 03/26/2015 BAIMA KYLAH L SHOE DYER Ot 250.00 03/26/2015 BAIMA, KYLAH L SHOE DYER Ot 272.4 03/26/2015 BAIMA, KYLAH L SHOE DYER Ot 305.1 03/26/2015 BAIMA, KYLAH L SHOE DYER Ot 401.9 03/26/2015 BAIMA, KYLAH L SHOE DYER Ot 414.00 03/26/2015 BAIMA, KYLAH L SHOE DYER Ot 424.90 03/26/2015 BAIMA, KYLAH L SHOE DYER Ot 496 03/26/2015 TAMARA OLVERA, PATRICIA L Ot 996.78 03/26/2015 TAMARA OLVERA, PATRICIA L Ot V72.63 03/26/2015 TAMARA OLVERA, PATRICIA L Ot V72.81 03/26/2015 TAMARA OLVERA, PATRICIA L Ot V74.8 03/26/2015 KARYN OLVERA, BYRON M Ot 272.4 03/26/2015 KARYN OLVERA, BYRON M Ot 338.29 03/26/2015 KARYN OLVERA, BYRON M Ot 401.9 03/26/2015 BAIMA, KYLAH L SHOE DYER Ot 414.00 03/26/2015 BAIMA, KYLAH L SHOE DYER Ot 429.3 03/26/2015 SHANA OLVERA, JEFERSON M Ot V72.84 03/26/2015 BAIMA, KYLAH L SHOE DYER Ot 272.4 03/26/2015 SHANA OLVERA, JEFERSON M Ot V72.84 03/26/2015 KOFI OLVERA FAC, ALI FACP CCDS Ot 272.4 03/26/2015 KOFI OLVERA FACC, ALI FACP CCDS Ot 414.00 03/26/2015 KOFI OLVERA FACC, ALI FACP CCDS Ot 414.8 03/26/2015 KOFI OLVERA FACC, ALI FACP CCDS Ot 458.9 03/26/2015 KOFI OLVERA FACC, ALI FACP CCDS Ot 780.4 03/26/2015 MADL, ETELVINA L SHOE DYER Ot 414.00 03/26/2015 MADL, ETELVINA L SHOE DYER Ot 780.2 03/26/2015 MADL, ETELVINA L SHOE DYER Ot V45.82 03/26/2015 BAIMA, KYLAH L SHOE DYER Ot 272.4 03/26/2015 BAIMA, KYLAH L SHOE DYER Ot 276.9 03/26/2015 BAIMA, KYLAH L SHOE DYER Ot 401.9 03/26/2015 BAIKYLAH ABAD L SHOE DYER Ot 414.00 03/26/2015 GELLENDER DO, BILL A Ot 250.00 03/26/2015 GELLENDER DO, BILL A Ot 272.4 03/26/2015 GELLENDER DO, BILL A Ot 414.00 04/05/2015 BAIJENNIFFER, KYLAH L SHOE DYER Ot 272.4 04/05/2015 BAIMA, KYLAH L SHOE DYER Ot 276.9 04/05/2015 BAIMA, KYLAH L SHOE DYER Ot 401.9 04/05/2015 BAIJENNIFFER, KYLAH L SHOE DYER Ot 414.00 04/05/2015 GELLENDER DO, BILL A Ot 250.00 04/05/2015 GELLENDER DO, BILL A Ot 272.4 04/05/2015 [facility] A Ot 414.00 04/06/2015 MADLETELVINA L SHOE DYER Ot 414.00 04/06/2015 MADL, ETELVINA L SHOE DYER Ot 780.2 04/06/2015 MADL, ETELVINA L SHOE DYER Ot V45.82 05/22/2015 [facility], BILL Garcia Ot 724.5 05/22/2015 [facility], BILL Garcia Ot 733.90 05/24/2015 [facility] BILL Garcia Ot 715.37 06/25/2015 KOFI [...] FACP CCDS Ot 530.81 07/16/2015 THOMPSON QURESHI [employer] CONTR[employer]S EXPERT Ot 916.0 ABRASION HIP LEG 07/16/2015 THOMPSON QURESHI [employer] EXPERT Ot 923.10 CONTUSION OF FOREARM 07/16/2015 THOMPSON QURESHI AUTOMATION CONTR[employer] EXPERT Ot 959.7 LOWER LEG INJURY NOS 07/16/2015 THOMPSON QURESHI [employer] EXPERT Ot E000.8 OTHER EXTERNAL CAUSE STATUS 07/16/2015 THOMPSON QURESHI [employer] EXPERT Ot E849.6 ACCIDENT IN PUBLIC BLDG 07/16/2015 THOMPSON QURESHI [employer] EXPERT Ot E888.9 FALL NOS 07/23/2015 BRYN DO, [...] A Ot V74.8 09/13/2015 BAIMA, KYLAH L SHOE DYER Ot 396.3 09/13/2015 BAIMA, KYLAH L SHOE DYER Ot 397.0 09/13/2015 BAIMA, KYLAH L SHOE DYER Ot 401.9 09/13/2015 BAIMA, KYLAH L SHOE DYER Ot 414.00 09/13/2015 BAIMA, KYLAH L SHOE DYER Ot 250.00 09/13/2015 BAIMA, KYLAH L SHOE DYER Ot 272.4 09/13/2015 BAIMA, KYLAH L SHOE DYER Ot 305.1 09/13/2015 BAIMA, KYLAH L SHOE DYER Ot 401.9 09/13/2015 BAIMA, KYLAH L SHOE DYER Ot 414.00 09/13/2015 BAIMA, KYLAH L SHOE DYER Ot 424.90 09/13/2015 BAIMA, KYLAH L SHOE DYER Ot 496 09/13/2015 TAMARA OLVERA, PATRICIA L Ot 996.78 09/13/2015 TAMARA OLVERA, PATRICIA L Ot V72.63 09/13/2015 TAMARA OLVERA, PATRICIA L Ot V72.81 09/13/2015 TAMARA OLVERA, PATRICIA L Ot V74.8 09/13/2015 KARYN OLVERA, BYRON Bruner Ot 272.4 09/13/2015 BYRON BOSS MD Ot 338.29 09/13/2015 KARYN OLVERA, BYRON Bruner Ot 401.9 09/13/2015 BAIMA, KYLAH L SHOE DYER Ot 414.00 09/13/2015 BAIMA, KYLAH L SHOE DYER Ot 429.3 09/13/2015 SHANA OLVERA, JEFERSON Bruner Ot V72.84 09/13/2015 BAIMA, KYLAH L SHOE DYER Ot 272.4 09/13/2015 SHANA OLVERA, JEFERSON Bruner Ot V72.84 09/13/2015 KOFI OLVERA FACC, ALI FACP CCDS Ot 272.4 09/13/2015 KOFI OLVERA FACC, ALI FACP CCDS Ot 414.00 09/13/2015 KOFI OLVEAR FACC, ALI FACP CCDS Ot 414.8 09/13/2015 KOFI OLVERA FACC, ALI FACP CCDS Ot 458.9 09/13/2015 KOFI OLVERA FACC, ALI FACP CCDS Ot 780.4 09/13/2015 MADL, ETELVINA L SHOE DYER Ot 414.00 09/13/2015 MADL, ETELVINA L SHOE DYER Ot 780.2 09/13/2015 MADL, ETELVINA L SHOE DYER Ot V45.82 09/13/2015 BAIMA, KYLAH L SHOE DYER Ot 272.4 09/13/2015 BAIMA, KYLAH L SHOE DYER Ot 276.9 09/13/2015 BAIMA, KYLAH L SHOE DYER Ot 401.9 09/13/2015 BAIMA, KYLAH L SHOE DYER Ot 414.00 09/13/2015 GELLENDER DO, BILL A [...] BILL Garcia Ot E928.9 09/25/2015 KYLAH CREWS SHOE DYER Ot E78.5 09/25/2015 KYLAH CREWS SHOE DYER Ot I25.9 10/07/2015 JESSIE OLVERA, BETTINA Nation [...] H00.021 HORDEOLUM INTERNUM RIGHT UPPER EYELID 03/05/2016 EKUKINES NULL MD, Ot F17.210 NICOTINE DEPENDENCE, CIGARETTES, [...] CCDS Ot I25.10 ATHSCL HEART DISEASE OF [place] CORONARY 03/21/2016 KOFI OLVERA FACC, ALI FACP CCDS Ot E78.5 HYPERLIPIDEMIA, UNSPECIFIED 03/21/2016 KOFI OLVERA FACC, ALI FACP CCDS Ot I25.10 ATHSCL HEART DISEASE OF [place] CORONARY 04/02/2016 SHANA OLVERA, JEFERSON Bruner Ot [...] KEERTHI 12/30/2016 Ot 414.01 CORONARY ATHEROSCLEROSIS OF [place] CORON 12/30/2016 Ot 786.50 CHEST PAIN NOS [...] SCREEN-BACTERIAL DIS NEC 12/30/2016 BAIMA, KYLAH L SHOE DYER Ot 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 12/30/2016 BAIMA, KYLAH L SHOE DYER Ot 397.0 TRICUSPID VALVE DISEASE 12/30/2016 BAIMA, KYLAH L SHOE DYER Ot 401.9 HYPERTENSION NOS 12/30/2016 BAIMA, KYLAH L SHOE DYER Ot 414.00 CORON ATHEROSCLER NOS TYPE VESSEL, NATIV 12/30/2016 BAIMA, KYLAH L SHOE DYER Ot 250.00 DIAB MELVA WO COMPL, TYPE II OR UNSPEC TY 12/30/2016 BAIMA, KYLAH L SHOE DYER Ot 272.4 HYPERLIPIDEMIA NEC/NOS 12/30/2016 KYLAH CREWS L SHOE DYER Ot 305.1 TOBACCO USE DISORDER 12/30/2016 KYLAH CREWS L SHOE DYER Ot 401.9 HYPERTENSION NOS 12/30/2016 KYLAH CREWS L SHOE DYER Ot 414.00 CORON ATHEROSCLER NOS TYPE VESSEL, NATIV 12/30/2016 KYLAH CREWS L SHOE DYER Ot 424.90 ENDOCARDITIS NOS 12/30/2016 KYLAH CREWS L SHOE DYER Ot 496 CHR AIRWAY OBSTRUCT NEC 12/30/2016 PATRICIA MCDONALD MD Ot 996.78 OTH COMP DUE TO OTH INTRNL ORTHPEDIC DEV 12/30/2016 PATRICIA MCDONALD MD Ot V72.63 PRE-PROCEDURAL LABORATORY EXAMINATION 12/30/2016 PATRICIA MCDONALD MD Ot V72.81 [id number] CARDIOVASCULAR 12/30/2016 PATRICIA MCDONALD MD Ot V74.8 SCREEN-BACTERIAL DIS NEC 12/30/2016 BYRON BOSS MD Ot 272.4 HYPERLIPIDEMIA NEC/NOS 12/30/2016 BYRON BOSS MD Ot 338.29 OTHER CHRONIC PAIN 12/30/2016 BYRON BOSS MD Ot 401.9 HYPERTENSION NOS 12/30/2016 KYLAH CREWS L SHOE DYER Ot 414.00 CORON ATHEROSCLER NOS TYPE VESSEL, NATIV 12/30/2016 KYLAH CREWS L SHOE DYER Ot 429.3 CARDIOMEGALY 12/30/2016 JEFERSON SALDANA MD Ot V72.84 EXAM PRE-OPERATIVE NOS 12/30/2016 PERLAKYLAH ABAD L SHOE DYER Ot 272.4 HYPERLIPIDEMIA NEC/NOS 12/30/2016 SHANA OLVERA, [...] 780.4 DIZZINESS AND GIDDINESS 12/30/2016 KYLAH CREWS SHOE DYER Ot E78.5 HYPERLIPIDEMIA, UNSPECIFIED 12/30/2016 KYLAH CREWS SHOE DYER Ot I25.9 CHRONIC ISCHEMIC HEART DISEASE, UNSPECIF 12/30/2016 ETELVINA LEONARD SHOE DYER Ot 414.00 CORON ATHEROSCLER NOS TYPE VESSEL, NATIV 12/30/2016 ETELVINA LEONARD SHOE DYER Ot 780.2 SYNCOPE AND COLLAPSE 12/30/2016 ETELVINA LEONARD SHOE DYER Ot V45.82 PERCUTANEOUS TRANSLUM CORON ANGIOPLASTY 12/30/2016 KYLAH CREWS SHOE DYER Ot 272.4 HYPERLIPIDEMIA NEC/NOS 12/30/2016 KYLAH CREWS SHOE DYER Ot 276.9 ELECTROLYT/FLUID DIS NEC 12/30/2016 KYLAH CREWS SHOE DYER Ot 401.9 HYPERTENSION NOS 12/30/2016 KYLAH CREWS SHOE DYER Ot 414.00 CORON ATHEROSCLER NOS TYPE VESSEL, [...] Ot 530.81 ESOPHAGEAL REFLUX 12/30/2016 KYLAH CREWS SHOE DYER Ot I71.4 ABDOMINAL AORTIC ANEURYSM, WITHOUT RUPTU [...] CCDS Ot I25.10 ATHSCL HEART DISEASE OF [place] CORONARY 01/01/2017 ADELFO WASHINGTON SHOE DYER Ot I71.4 ABDOMINAL AORTIC ANEURYSM, WITHOUT RUPTU 01/01/2017 ADELFO W[place] SHOE DYER Ot I71.4 ABDOMINAL AORTIC ANEURYSM, WITHOUT RUPTU 01/01/2017 ADELFO W[place] SHOE DYER Ot I71.4 ABDOMINAL AORTIC ANEURYSM, WITHOUT RUPTU 01/21/2017 ADELFO WASHINGTON SHOE DYER Ot I71.4 ABDOMINAL AORTIC ANEURYSM, WITHOUT RUPTU [...] SCREEN-BACTERIAL DIS NEC 11/26/2017 BAIMA, KYLAH L SHOE DYER Ot 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 11/26/2017 BAIMA, KYLAH L SHOE DYER Ot 397.0 TRICUSPID VALVE DISEASE 11/26/2017 BAIMA, KYLAH L SHOE DYER Ot 401.9 HYPERTENSION NOS 11/26/2017 BAIMA, KYLAH L SHOE DYER Ot 414.00 CORON ATHEROSCLER NOS TYPE VESSEL, NATIV 11/26/2017 BAIMA, KYLAH L SHOE DYER Ot 250.00 DIAB MELVA WO COMPL, TYPE II OR UNSPEC TY 11/26/2017 BAIMA, KYLAH L SHOE DYER Ot 272.4 HYPERLIPIDEMIA NEC/NOS 11/26/2017 BAIMA, KYLAH L SHOE DYER Ot 305.1 TOBACCO USE DISORDER 11/26/2017 BAIMA, KYLAH L SHOE DYER Ot 401.9 HYPERTENSION NOS 11/26/2017 BAIMA, KYLAH L SHOE DYER Ot 414.00 CORON ATHEROSCLER NOS TYPE VESSEL, NATIV 11/26/2017 BAIMA, KYLAH L SHOE DYER Ot 424.90 ENDOCARDITIS NOS 11/26/2017 BAIMA, KYLHA L SHOE DYER Ot 496 CHR AIRWAY OBSTRUCT NEC 11/26/2017 PATRICIA MCDONALD MD Ot 996.78 OTH COMP DUE TO OTH INTRNL ORTHPEDIC DEV 11/26/2017 PATRICIA MCDONALD MD, Ot V72.63 PRE-PROCEDURAL LABORATORY EXAMINATION 11/26/2017 PATRICIA MCDONALD MD, Ot V72.81 [id number] CARDIOVASCULAR 11/26/2017 REVEAL MD, PATRICIA L Ot V74.8 SCREEN-BACTERIAL DIS NEC 11/26/2017 KARYN OLVERA, BYRON Bruner Ot 272.4 HYPERLIPIDEMIA NEC/NOS 11/26/2017 KARYN OLVERA, BYRON Bruner Ot 338.29 OTHER CHRONIC PAIN 11/26/2017 KARYN OLVERA, BYRON Bruner Ot 401.9 HYPERTENSION NOS 11/26/2017 BAIMA, KYLAH L SHOE DYER Ot 414.00 CORON ATHEROSCLER NOS TYPE VESSEL, NATIV 11/26/2017 BAIMA, KYLAH L SHOE DYER Ot 429.3 CARDIOMEGALY 11/26/2017 SHANA OLVERA, JEFERSON Bruner Ot V72.84 EXAM PRE-OPERATIVE NOS 11/26/2017 BAIMA, KYLAH L SHOE DYER Ot 272.4 HYPERLIPIDEMIA NEC/NOS 11/26/2017 SHANA OLVERA, [...] DIZZINESS AND GIDDINESS 11/26/2017 BAIMA, KYLAH L SHOE DYER Ot E78.5 HYPERLIPIDEMIA, UNSPECIFIED 11/26/2017 BAIMA, KYLAH L SHOE DYER Ot I25.9 CHRONIC ISCHEMIC HEART DISEASE, UNSPECIF 11/26/2017 MADL, ETELVINA L SHOE DYER Ot 414.00 CORON ATHEROSCLER NOS TYPE VESSEL, NATIV 11/26/2017 MADL, ETELVINA L SHOE DYER Ot 780.2 SYNCOPE AND COLLAPSE 11/26/2017 MADL, ETELVINA L SHOE DYER Ot V45.82 PERCUTANEOUS TRANSLUM CORON ANGIOPLASTY 11/26/2017 BAIMA, KYLAH L SHOE DYER Ot 272.4 HYPERLIPIDEMIA NEC/NOS 11/26/2017 BAIMA, KYLAH L SHOE DYER Ot 276.9 ELECTROLYT/FLUID DIS NEC 11/26/2017 BAIMA, KYLAH L SHOE DYER Ot 401.9 HYPERTENSION NOS 11/26/2017 BAIMA, KYLAH L SHOE DYER Ot 414.00 CORON ATHEROSCLER NOS TYPE VESSEL, [...] Ot 530.81 ESOPHAGEAL REFLUX 11/26/2017 KYLAH CREWS SHOE DYER Ot I71.4 ABDOMINAL AORTIC ANEURYSM, WITHOUT RUPTU 11/26/2017 BILL CLEMENTE DO Ot 250.00 DIAB MELVA WO COMPL, TYPE II OR UNSPEC TY 11/26/2017 BILL CLEMENTE DO Ot 959.7 LOWER LEG INJURY NOS 11/26/2017 BILL CLEMENTE DO Ot E000.8 OTHER EXTERNAL CAUSE STATUS 11/26/2017 BILL CLEMENTE DO Ot E928.9 ACCIDENT NOS 11/26/2017 IBLL CLEMENTE DO Ot N39.0 URINARY TRACT INFECTION, SITE NOT SPECIF 11/26/2017 KOFI OLVERA FACC, BRADLY FACP CCDS Ot E78.5 HYPERLIPIDEMIA, UNSPECIFIED 11/26/2017 KOFI OLVERA FACC, ALI FACP CCDS Ot I25.10 ATHSCL HEART DISEASE OF [place] CORONARY 11/26/2017 ADELFO WASHINGTON SHOE DYER Ot I71.4 ABDOMINAL AORTIC ANEURYSM, WITHOUT RUPTU [...] CCDS Ot I25.10 ATHSCL HEART DISEASE OF [place] CORONARY 12/01/2017 KOFI OLVERA FACC, ALI FACP [...] CCDS Ot I25.10 ATHSCL HEART DISEASE OF [place] CORONARY 12/03/2017 KOFI OLVERA FACC, ALI FACP [...] CCDS Ot I25.10 ATHSCL HEART DISEASE OF [place] CORONARY 12/10/2017 KOFI OLVERA FACC, ALI FACP CCDS Ot I25.5 ISCHEMIC CARDIOMYOPATHY 12/10/2017 KOFI OLVERA FACC, ALI FACP CCDS Ot I73.9 PERIPHERAL VASCULAR DISEASE, UNSPECIFIED 12/10/2017 KOFI OLVERA FACC, ALI FACP CCDS Ot J43.8 OTHER EMPHYSEMA 12/10/2017 KOFI OLVERA FACC, ALI FACP CCDS Ot R06.02 SHORTNESS OF BREATH 12/10/[address] [facility], ALI FACP CCDS Ot Z72.0 TOBACCO USE 12/17/2017 KOFI OLVERA FACC, ALI FACP CCDS Ot E11.9 TYPE 2 DIABETES MELLITUS WITHOUT COMPLIC 12/17/2017 KOFI OLVERA FACC, ALI FACP CCDS Ot I10 ESSENTIAL (PRIMARY) HYPERTENSION 12/17/2017 KOFI OLVERA FACC, ALI FACP CCDS Ot I25.10 ATHSCL HEART DISEASE OF [place] CORONARY 12/17/2017 KOFI OLVERA FACC, ALI FACP CCDS Ot I25.5 ISCHEMIC CARDIOMYOPATHY 12/17/[address] [facility], ALI FACP CCDS Ot I73.9 PERIPHERAL VASCULAR DISEASE, UNSPECIFIED 12/17/2017 KOFI OLVERA FACC, ALI FACP CCDS Ot J43.8 OTHER EMPHYSEMA 12/17/2017 KOFI OLVERA FACC, ALI FACP CCDS Ot R06.02 SHORTNESS OF BREATH 12/17/2017 KOFI OLVERA FACC, ALI FACP CCDS Ot Z72.0 TOBACCO USE 12/22/2017 KYLAH CREWS SHOE DYER Ot I25.5 ISCHEMIC CARDIOMYOPATHY 12/28/2017 KOFI OLVERA FACC, ALI FACP CCDS Ot E11.9 TYPE 2 DIABETES MELLITUS WITHOUT COMPLIC 12/28/2017 KOFI OLVERA FACC, ALI FACP CCDS Ot I10 ESSENTIAL (PRIMARY) HYPERTENSION 12/28/2017 KOFI OLVERA FACC, ALI FACP CCDS Ot I25.10 ATHSCL HEART DISEASE OF [place] CORONARY 12/28/2017 KOFI OLVERA FACC, ALI FACP [...] CCDS Ot I25.10 ATHSCL HEART DISEASE OF [place] CORONARY 12/30/2017 KOFI OLVERA FAC, ALI FACP [...] INITIAL ENCOUNTER 01/07/2018 HARDEEP DORANTES Ot Z79.84 SENIOR CARE (CURRENT) USE OF ORAL HYPOGLYC 01/07/2018 HRADEEP DORANTES Ot Z87.440 PERSONAL HISTORY OF URINARY [...] CCDS Ot I25.10 ATHSCL HEART DISEASE OF [place] CORONARY 01/08/2018 KOFI OLVERA FACC, BRADLY FACP [...] INITIAL ENCOUNTER 01/11/2018 HARDEEP DORANTES Ot Z79.84 SENIOR CARE (CURRENT) USE OF ORAL HYPOGLYC 01/11/2018 HARDEEP DORANTES Ot Z87.440 PERSONAL HISTORY OF URINARY (TRACT) INFE 01/11/2018 HADREEP DORANTES Ot Z88.0 ALLERGY STATUS TO PENICILLIN [...] INITIAL ENCOUNTER 01/13/2018 HARDEEP DORANTES Ot Z79.84 SENIOR CARE (CURRENT) USE OF ORAL HYPOGLYC 01/13/2018 HARDEEP [...] Ot Z95.5 PRESENCE OF CORONARY ANGIOPLASTY IMPLANT 02/15/2018 KARLOS OLVERA, MARLA Ackerman Ot E11.9 TYPE 2 DIABETES MELLITUS WITHOUT COMPLIC 02/15/2018 KARLOS OLVERA, MARLA Ackerman Ot E78.00 PURE HYPERCHOLESTEROLEMIA, UNSPECIFIED 02/15/2018 KARLOS OLVERA, MARLA Ackerman Ot E78.5 HYPERLIPIDEMIA, UNSPECIFIED 02/15/2018 KARLOS OLVERA, MARLA Ackerman Ot F17.210 NICOTINE DEPENDENCE, CIGARETTES, UNCOMPL 02/15/2018 KARLOS OLVERA, MARLA Ackerman Ot F31.9 BIPOLAR DISORDER, UNSPECIFIED 02/15/2018 MARLA EVERETT MD, Ot F41.9 ANXIETY DISORDER, UNSPECIFIED 02/15/2018 MARLA EVERETT MD, Ot G43.909 MIGRAINE, UNSP, NOT INTRACTABLE, WITHOUT 02/15/2018 MARLA EVERETT MD, Ot I10 ESSENTIAL (PRIMARY) HYPERTENSION 02/15/2018 MARLA EVERETT MD, Ot I25.10 ATHSCL HEART DISEASE OF [place] CORONARY 02/15/2018 MARLA EVERETT MD, Ot J43.9 EMPHYSEMA, UNSPECIFIED 02/15/2018 MARLA EVERETT MD, Ot K21.9 GASTRO-ESOPHAGEAL REFLUX DISEASE WITHOUT 02/15/2018 MARLA EVERETT MD Ot R07.89 OTHER CHEST PAIN 02/15/2018 MARLA EVERETT MD, Ot Z79.82 HORTICULTURE WORKER (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) USE OF ASPIRIN 02/15/2018 MARLA EVERETT MD Ot Z79.84 HORTICULTURE WORKER (CURRENT) USE OF ORAL HYPOGLYC 02/15/2018 MARLA EVERETT MD, Ot Z87.01 PERSONAL HISTORY OF PNEUMONIA (RECURRENT 02/15/2018 MARLA EVERETT MD, Ot Z87.81 PERSONAL HISTORY OF (HEALED) TRAUMATIC F 02/15/2018 MARLA EVERETT MD Ot Z88.0 ALLERGY STATUS TO PENICILLIN 02/15/2018 MARLA EVERETT MD Ot Z88.5 ALLERGY STATUS TO NARCOTIC AGENT STATUS 02/15/2018 MARLA EVERETT MD Ot Z88.6 ALLERGY STATUS TO ANALGESIC AGENT STATUS 02/15/2018 MARLA EVERETT MD Ot Z90.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 BOTH CERVIX AND UTER 02/15/2018 MARLA EVERETT MD Ot Z95.5 PRESENCE OF CORONARY ANGIOPLASTY IMPLANT 02/17/2018 MARLA EVERETT MD Ot E11.9 TYPE 2 DIABETES MELLITUS WITHOUT COMPLIC 02/17/2018 MARLA EVERETT MD Ot E78.00 PURE HYPERCHOLESTEROLEMIA, UNSPECIFIED 02/17/2018 MARLA EVERETT MD Ot E78.5 HYPERLIPIDEMIA, UNSPECIFIED 02/17/2018 MARLA EVERETT MD Ot F17.210 NICOTINE DEPENDENCE, CIGARETTES, UNCOMPL 02/17/2018 MARLA EVERETT MD Ot F31.9 BIPOLAR DISORDER, UNSPECIFIED 02/17/2018 MARLA EVERETT MD, Ot F41.9 ANXIETY DISORDER, UNSPECIFIED 02/17/2018 MARLA EVERETT MD Ot G43.909 MIGRAINE, UNSP, NOT INTRACTABLE, WITHOUT 02/17/2018 MARLA EVERETT MD Ot I10 ESSENTIAL (PRIMARY) HYPERTENSION 02/17/2018 MARLA EVERETT MD Ot I25.10 ATHSCL HEART DISEASE OF [place] CORONARY 02/17/2018 MARLA EVERETT MD, Ot J43.9 EMPHYSEMA, UNSPECIFIED 02/17/2018 MARLA EVERETT MD, Ot K21.9 GASTRO-ESOPHAGEAL REFLUX DISEASE WITHOUT 02/17/2018 MARLA EVERETT MD Ot R07.89 OTHER CHEST PAIN 02/17/2018 MARLA EVERETT MD Ot Z79.82 SENIOR CARE (CURRENT) USE OF ASPIRIN 02/17/2018 MARLA EVERETT MD Ot Z79.84 SENIOR CARE (CURRENT) USE OF ORAL HYPOGLYC 02/17/2018 MARLA EVERETT MD Ot Z87.01 PERSONAL HISTORY OF PNEUMONIA (RECURRENT 02/17/2018 MARLA EVERETT MD, Ot Z87.81 PERSONAL HISTORY OF (HEALED) TRAUMATIC F 02/17/2018 MARLA EVERETT MD Ot Z88.0 ALLERGY STATUS TO PENICILLIN 02/17/2018 MARLA EVERETT MD Ot Z88.5 ALLERGY STATUS TO NARCOTIC AGENT STATUS 02/17/2018 MARLA EVERETT MD, Ot Z88.6 ALLERGY STATUS TO ANALGESIC AGENT STATUS 02/17/2018 MARLA EVERETT MD Ot Z90.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 BOTH CERVIX AND UTER 02/17/2018 MARLA EVERETT MD Ot Z95.5 PRESENCE OF CORONARY ANGIOPLASTY IMPLANT 02/21/2018 FELICIA ENCINAS DO Ot E11.9 TYPE 2 DIABETES MELLITUS WITHOUT COMPLIC 02/21/2018 FELICIA ENCINAS DO Ot E78.00 PURE HYPERCHOLESTEROLEMIA, UNSPECIFIED 02/21/2018 HUANG DO FELICIA K Ot F17.210 NICOTINE DEPENDENCE, CIGARETTES, UNCOMPL 02/21/2018 FELICIA ENCINAS DO Ot F32.9 MAJOR DEPRESSIVE DISORDER, SINGLE EPISOD 02/21/2018 HUANG FELICIA PRAKASH Ot F41.9 ANXIETY DISORDER, UNSPECIFIED 02/21/2018 HUANG TRENTON PRAKASHA Adriana Ot G43.909 MIGRAINE, UNSP, NOT INTRACTABLE, WITHOUT 02/21/2018 HUANG TRENTON PRAKASHA K Ot I10 ESSENTIAL (PRIMARY) HYPERTENSION 02/21/2018 HUANG TRENTON PRAKASHA Adriana Ot I25.10 ATHSCL HEART DISEASE OF [place] CORONARY 02/21/2018 FELICIA ENCINAS DO Ot J43.9 EMPHYSEMA, UNSPECIFIED 02/21/2018 HUANG TRENTON PRAKASHA Adriana Ot K21.9 GASTRO-ESOPHAGEAL REFLUX DISEASE WITHOUT 02/21/2018 HUANG TRENTON PRAKASHA Adriana Ot N39.0 URINARY TRACT INFECTION, SITE NOT SPECIF 02/21/2018 HUANG FELICIA PRAKASH Ot R20.2 PARESTHESIA OF SKIN 02/21/2018 HUANG FELICIA PRAAKSH Ot R53.1 WEAKNESS 02/21/2018 HUANG TRENTON PRAKASHA Adriana Ot Z79.84 HORTICULTURE WORKER (CURRENT) USE OF ORAL HYPOGLYC 02/21/2018 HUANG TRENTON PRAKASHA Adriana Ot Z87.01 PERSONAL HISTORY OF PNEUMONIA (RECURRENT 02/21/2018 HUANG FELICIA PRAKASH Ot Z88.0 ALLERGY STATUS TO PENICILLIN 02/21/2018 HUANG FELICIA PRAKASH Ot Z88.6 ALLERGY STATUS TO ANALGESIC AGENT STATUS 02/21/2018 HUANG FELICIA PRAKSAH Ot Z88.8 ALLERGY STATUS TO OTH DRUG/MEDS/BIOL SUB 02/21/2018 HUANG TRENTON PRAKASHA K Ot Z90.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 BOTH CERVIX AND UTER 02/21/2018 FELICIA ENCINAS DO Ot Z95.5 PRESENCE OF CORONARY ANGIOPLASTY IMPLANT 02/23/2018 TRENTON ENCINAS DOA Adriana Ot E11.9 TYPE 2 DIABETES MELLITUS WITHOUT COMPLIC 02/23/2018 TRENTON ENCINAS DOA Adriana Ot E78.00 PURE HYPERCHOLESTEROLEMIA, UNSPECIFIED 02/23/2018 HUANG TRENTON PRAKASHA K Ot F17.210 NICOTINE DEPENDENCE, CIGARETTES, UNCOMPL 02/23/2018 HUANG PRAKASH FELICIA Wright Ot F32.9 MAJOR DEPRESSIVE DISORDER, SINGLE EPISOD 02/23/2018 HUANG DO FELICIA Adriana Ot F41.9 ANXIETY DISORDER, UNSPECIFIED 02/23/2018 HUANG PRAKASH FELICIA Wright Ot G43.909 MIGRAINE, UNSP, NOT INTRACTABLE, WITHOUT 02/23/2018 HUANG PRAKASH FELICIA K Ot I10 ESSENTIAL (PRIMARY) HYPERTENSION 02/23/2018 HUANG FELICIA Adriana Ot I25.10 ATHSCL HEART DISEASE OF [place] CORONARY 02/23/2018 HUANG PRAKASH FELICIA Adriana Ot J43.9 EMPHYSEMA, UNSPECIFIED 02/23/2018 HUANG PRAKASH FELICIA Wright Ot K21.9 GASTRO-ESOPHAGEAL REFLUX DISEASE WITHOUT 02/23/2018 HUANG DO FELICIA Wright Ot N39.0 URINARY TRACT INFECTION, SITE NOT SPECIF 02/23/2018 HUANG PRAKASH FELICIA Adriana Ot R20.2 PARESTHESIA OF SKIN 02/23/2018 HUANG FELICIA Adriana Ot R53.1 WEAKNESS 02/23/2018 HUANG PRAKASH FELICIA Adriana Ot Z79.84 SENIOR CARE (CURRENT) USE OF ORAL HYPOGLYC 02/23/2018 HUANG FELICIA Wright Ot Z87.01 PERSONAL HISTORY OF PNEUMONIA (RECURRENT 02/23/2018 HUANG PRAKASH FELICIA Wright Ot Z88.0 ALLERGY STATUS TO PENICILLIN 02/23/2018 HUANG PRAKASH FELICIA Adriana Ot Z88.6 ALLERGY STATUS TO ANALGESIC AGENT STATUS 02/23/2018 HUANG PRAKASH FELICIA Adriana Ot Z88.8 ALLERGY STATUS TO OTH DRUG/MEDS/BIOL SUB 02/23/2018 HUANG PRAKASH FELICIA Adriana Ot Z90.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 BOTH CERVIX AND UTER 02/23/2018 HUANG PRAKASH FELICIA Adriana Ot Z95.5 PRESENCE OF CORONARY ANGIOPLASTY IMPLANT 02/26/2018 LEONEL ORTIZ MD Ot R13.10 DYSPHAGIA, UNSPECIFIED 02/26/2018 LEONEL ORTIZ MD Ot Z01.818 ENCOUNTER FOR OTHER PREPROCEDURAL EXAMIN 03/02/2018 Ot V76.12 OT SCREEN MAMMO-MALIGN NEOPLASM OF [place] 03/02/2018 BAKARI OLVERA, EDUARDO Garcia Ot 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 03/02/2018 EDUARDO VILLEGAS MD Ot 788.30 UNSPECIFIED URINARY INCONTINENCE 03/02/2018 EDUARDO VILLEGAS MD Ot V72.63 PRE-PROCEDURAL LABORATORY EXAMINATION 03/02/2018 EDUARDO VILLEGAS MD Ot V74.8 SCREEN-BACTERIAL DIS NEC 03/02/2018 EDUARDO VILLEGAS MD Ot 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 03/02/2018 EDUARDO VILLEGAS MD Ot 788.30 UNSPECIFIED URINARY INCONTINENCE 03/02/2018 EDUARDO VILLEGAS MD Ot V72.63 PRE-PROCEDURAL LABORATORY EXAMINATION 03/02/2018 EDUARDO VILLEGAS MD Ot V74.8 SCREEN-BACTERIAL DIS NEC 03/02/2018 BAIMA, KYLAH L SHOE DYER Ot 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 03/02/2018 BAIMA, KYLAH L SHOE DYER Ot 397.0 TRICUSPID VALVE DISEASE 03/02/2018 BAIMA, KYLAH L SHOE DYER Ot 401.9 HYPERTENSION NOS 03/02/2018 BAIMA, KYLAH L SHOE DYER Ot 414.00 CORON ATHEROSCLER NOS TYPE VESSEL, NATIV 03/02/2018 BAIMA, KYLAH L SHOE DYER Ot 250.00 DIAB MELVA WO COMPL, TYPE II OR UNSPEC TY 03/02/2018 BAIMA, KYLAH L SHOE DYER Ot 272.4 HYPERLIPIDEMIA NEC/NOS 03/02/2018 BAIMA, KYLAH L SHOE DYER Ot 305.1 TOBACCO USE DISORDER 03/02/2018 BAIMA, KYLAH L SHOE DYER Ot 401.9 HYPERTENSION NOS 03/02/2018 BAIMA, KYLAH L SHOE DYER Ot 414.00 CORON ATHEROSCLER NOS TYPE VESSEL, NATIV 03/02/2018 BAIMA, KYLAH L SHOE DYER Ot 424.90 ENDOCARDITIS NOS 03/02/2018 BAIMA, KYLAH L SHOE DYER Ot 496 CHR AIRWAY OBSTRUCT NEC 03/02/2018 PATRICIA MCDONALD MD Ot 996.78 OTH COMP DUE TO OTH INTRNL ORTHPEDIC DEV 03/02/2018 PATRICIA MCDONALD MD Ot V72.63 PRE-PROCEDURAL LABORATORY EXAMINATION 03/02/2018 PATRICIA MCDONALD MD Ot V72.81 [id number] CARDIOVASCULAR 03/02/2018 PATRICIA MCDONALD MD Ot V74.8 SCREEN-BACTERIAL DIS NEC 03/02/2018 BYRON BOSS MD Ot 272.4 HYPERLIPIDEMIA NEC/NOS 03/02/2018 KARYN OLVERA, BYRON Bruner Ot 338.29 OTHER CHRONIC PAIN 03/02/2018 KARYN OLVERA, BYRON Bruner Ot 401.9 HYPERTENSION NOS 03/02/2018 BAIMA, KYLAH L SHOE DYER Ot 414.00 CORON ATHEROSCLER NOS TYPE VESSEL, NATIV 03/02/2018 BAIMA, KYLAH L SHOE DYER Ot 429.3 CARDIOMEGALY 03/02/2018 SHANA OLVERA, JEFERSON Bruner Ot V72.84 EXAM PRE-OPERATIVE NOS 03/02/2018 BAIMA, KYLAH L SHOE DYER Ot 272.4 HYPERLIPIDEMIA NEC/NOS 03/02/2018 SHANA OLVERA, JEFERSON M Ot V72.84 EXAM PRE-OPERATIVE NOS 03/02/2018 KOFI OLVERA FACC, ALI FACP CCDS Ot 272.4 HYPERLIPIDEMIA NEC/NOS 03/02/2018 KOFI OLVERA FACC, ALI FACP CCDS Ot 414.00 CORON ATHEROSCLER NOS TYPE VESSEL, NATIV 03/02/2018 KOFI OLVERA FACC, ALI FACP CCDS Ot 414.8 CHR ISCHEMIC HRT DIS NEC 03/02/2018 KOFI OLVERA FACC, ALI FACP CCDS Ot 458.9 HYPOTENSION NOS 03/02/2018 KOFI OLVERA FACC, ALI FACP CCDS Ot 780.4 DIZZINESS AND GIDDINESS 03/02/2018 BAIMA, KYLAH L SHOE DYER Ot E78.5 HYPERLIPIDEMIA, UNSPECIFIED 03/02/2018 BAIMA, KYLAH L SHOE DYER Ot I25.9 CHRONIC ISCHEMIC HEART DISEASE, UNSPECIF 03/02/2018 MADL, ETELVINA L SHOE DYER Ot 414.00 CORON ATHEROSCLER NOS TYPE VESSEL, NATIV 03/02/2018 MADL, ETELVINA L SHOE DYER Ot 780.2 SYNCOPE AND COLLAPSE 03/02/2018 MADL, ETELVINA L SHOE DYER Ot V45.82 PERCUTANEOUS TRANSLUM CORON ANGIOPLASTY 03/02/2018 BAIMA, KYLAH L SHOE DYER Ot 272.4 HYPERLIPIDEMIA NEC/NOS 03/02/2018 BAIMA, KYLAH L SHOE DYER Ot 276.9 ELECTROLYT/FLUID DIS NEC 03/02/2018 BAIMA, KYLAH L SHOE DYER Ot 401.9 HYPERTENSION NOS 03/02/2018 BAIMA, KYLAH L SHOE DYER Ot 414.00 CORON ATHEROSCLER NOS TYPE VESSEL, NATIV 03/02/2018 BILL CLEMENTE DO Ot 250.00 DIAB MELVA WO COMPL, TYPE II OR UNSPEC TY 03/02/2018 BRYN PRAKASHBILL Ot 272.4 HYPERLIPIDEMIA NEC/NOS 03/02/2018 BRYN PRAKASHBILL Ot 414.00 CORON ATHEROSCLER NOS TYPE VESSEL, NATIV 03/02/2018 BRYN PRAKASHBILL Ot 724.5 BACKACHE NOS 03/02/2018 BRYN PRAKASHBILL Ot 733.90 BONE CARTILAGE DIS NOS 03/02/2018 BRYN BILL PRAKASH Ot 715.37 LOC OSTEOARTH NOS-ANKLE 03/02/2018 KOFI OLVERA FACC, ALI FACP CCDS Ot 250.00 DIAB MELVA WO COMPL, TYPE II OR UNSPEC TY 03/02/2018 KOFI OLVERA FACC, ALI FACP CCDS Ot 272.4 HYPERLIPIDEMIA NEC/NOS 03/02/2018 KOFI OLVERA FACC, ALI FACP CCDS Ot 278.00 OBESITY, NOS 03/02/2018 KOFI OLVERA FACC, ALI FACP CCDS Ot 305.1 TOBACCO USE DISORDER 03/02/2018 KOFI OLVERA FACC, ALI FACP CCDS Ot 401.9 HYPERTENSION NOS 03/02/2018 KOFI OLVERA FACC, ALI FACP CCDS Ot 414.00 CORON ATHEROSCLER NOS TYPE VESSEL, NATIV 03/02/2018 KOFI OLVERA FACC, ALI FACP CCDS Ot 447.72 ABDOMINAL AORTIC ECTASIA 03/02/2018 KOFI OLVERA FACC, ALI FACP CCDS Ot 458.9 HYPOTENSION NOS 03/02/2018 KOFI OLVERA FACC, ALI FACP CCDS Ot 496 CHR AIRWAY OBSTRUCT NEC 03/02/2018 KOFI OLVERA FACC, ALI FACP CCDS Ot 530.81 ESOPHAGEAL REFLUX 03/02/2018 KYLHA CREWS SHOE DYER Ot I71.4 ABDOMINAL AORTIC ANEURYSM, WITHOUT RUPTU 03/02/2018 BRYN PRAKASHBILL Ot 250.00 DIAB MELVA WO COMPL, TYPE II OR UNSPEC TY 03/02/2018 AMELIASAYDASEAN BILL PRAKASH Ot 959.7 LOWER LEG INJURY NOS 03/02/2018 BRYN BILL PRAKASH Ot E000.8 OTHER EXTERNAL CAUSE STATUS 03/02/2018 AMELIABILL HAYES DO Ot E928.9 ACCIDENT NOS 03/02/2018 AMELIABILL HAYES DO Ot N39.0 URINARY TRACT INFECTION, SITE NOT SPECIF 03/02/2018 KOFI OLVERA FACC, ALI FACP CCDS Ot E78.5 HYPERLIPIDEMIA, UNSPECIFIED 03/02/2018 KOFI OLVERA FACC, ALI FACP CCDS Ot I25.10 ATHSCL HEART DISEASE OF [place] CORONARY 03/02/2018 ADELFO [place] SHOE DYER Ot I71.4 ABDOMINAL AORTIC ANEURYSM, WITHOUT RUPTU 03/02/2018 BILL CLEMENTE DO Ot Z12.31 ENCNTR SCREEN MAMMOGRAM FOR MALIGNANT NE 03/02/2018 BILL CLEMENTE DO Ot R92.8 OTH ABN AND INCONCLUSIVE FINDINGS ON DX 03/02/2018 KOFI OLVERA FACC, BRADLY FACP CCDS Ot E11.9 TYPE 2 DIABETES MELLITUS WITHOUT COMPLIC 03/02/2018 KOFI OLVERA FACC, ALI FACP CCDS Ot I10 ESSENTIAL (PRIMARY) HYPERTENSION 03/02/2018 KOFI OLVERA FACC, ALI FACP CCDS Ot I25.10 ATHSCL HEART DISEASE OF [place] CORONARY 03/02/2018 KOFI OLVERA FACC, ALI FACP CCDS Ot I25.5 ISCHEMIC CARDIOMYOPATHY 03/02/2018 KOFI OLVERA FACC, ALI FACP CCDS Ot I73.9 PERIPHERAL VASCULAR DISEASE, UNSPECIFIED 03/02/2018 KOFI OLVERA FACC, ALI FACP CCDS Ot J43.8 OTHER EMPHYSEMA 03/02/2018 KOFI OLVERA FACC, ALI FACP CCDS Ot R06.02 SHORTNESS OF BREATH 03/02/2018 KOFI OLVERA FACC, ALI FACP CCDS Ot Z72.0 TOBACCO USE 03/02/2018 KOFI OLVERA FACC, ALI FACP CCDS Ot E11.9 TYPE 2 DIABETES MELLITUS WITHOUT COMPLIC 03/02/2018 KOFI OLVERA FACC, ALI FACP CCDS Ot I10 ESSENTIAL (PRIMARY) HYPERTENSION 03/02/2018 KOFI OLVERA FACC, ALI FACP CCDS Ot I25.10 ATHSCL HEART DISEASE OF [place] CORONARY 03/02/2018 KOFI OLVERA FACC, ALI FACP CCDS Ot I25.5 ISCHEMIC CARDIOMYOPATHY 03/02/2018 KOFI OLVERA FACC, ALI FACP CCDS Ot I73.9 PERIPHERAL VASCULAR DISEASE, UNSPECIFIED 03/02/2018 KOFI OLVERA FACC, ALI FACP CCDS Ot J43.8 OTHER EMPHYSEMA 03/02/2018 KOFI OLVERA FACC, ALI FACP CCDS Ot R06.02 SHORTNESS OF BREATH 03/02/2018 KOFI OLVERA FACC, ALI FACP CCDS Ot Z72.0 TOBACCO USE 03/02/2018 KOFI OLVERA FACC, ALI FACP CCDS Ot E11.9 TYPE 2 DIABETES MELLITUS WITHOUT COMPLIC 03/02/2018 KOFI OLVERA FACC, ALI FACP CCDS Ot I10 ESSENTIAL (PRIMARY) HYPERTENSION 03/02/2018 KOFI OLVERA FACC, ALI FACP CCDS Ot I25.10 ATHSCL HEART DISEASE OF [place] CORONARY 03/02/2018 KOFI OLVERA FACC, ALI FACP CCDS Ot I25.5 ISCHEMIC CARDIOMYOPATHY 03/02/2018 KOFI OLVERA FACC, ALI FACP CCDS Ot I73.9 PERIPHERAL VASCULAR DISEASE, UNSPECIFIED 03/02/2018 KOFI OLVERA FACC, ALI FACP CCDS Ot J43.8 OTHER EMPHYSEMA 03/02/2018 KOFI OLVERA FACC, ALI FACP CCDS Ot R06.02 SHORTNESS OF BREATH 03/02/2018 KOFI OLVERA FACC, ALI FACP CCDS Ot Z72.0 TOBACCO USE 03/02/2018 KYLAH CREWS SHOE DYER Ot I25.5 ISCHEMIC CARDIOMYOPATHY 03/02/2018 KOFI OLEVRA FACC, ALI FACP CCDS Ot E11.9 TYPE 2 DIABETES MELLITUS WITHOUT COMPLIC 03/02/2018 KOFI OLVERA FACC, ALI FACP CCDS Ot E78.4 OTHER HYPERLIPIDEMIA 03/02/2018 KOFI OLVERA FACC, ALI FACP CCDS Ot I25.10 ATHSCL HEART DISEASE OF [place] CORONARY 03/02/2018 KOFI OLVERA FACC, ALI FACP CCDS Ot I25.5 ISCHEMIC CARDIOMYOPATHY 03/02/2018 KOFI OLVERA FACC, ALI FACP CCDS Ot I65.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 AND STENOSIS OF BILATERAL CALVERT 03/02/2018 KOFI OLVERA FACC, ALI FACP CCDS Ot I73.9 PERIPHERAL VASCULAR DISEASE, UNSPECIFIED 03/02/2018 KOFI OLVERA FACC, ALI FACP CCDS Ot R06.02 SHORTNESS OF BREATH 03/02/2018 KOFI OLVERA FACC, ALI FACP CCDS Ot Z72.0 TOBACCO USE 03/04/2018 LEONEL ORTIZ MD Ot E11.40 TYPE 2 DIABETES MELLITUS WITH DIABETIC N 03/04/2018 LEONEL ORTIZ MD Ot E78.00 PURE HYPERCHOLESTEROLEMIA, UNSPECIFIED 03/04/2018 LEONEL ORTIZ MD, Ot F17.210 NICOTINE DEPENDENCE, CIGARETTES, UNCOMPL 03/04/2018 LEONEL ORTIZ MD, Ot F32.9 MAJOR DEPRESSIVE DISORDER, SINGLE EPISOD 03/04/2018 LEONEL ORTIZ MD, Ot I10 ESSENTIAL (PRIMARY) HYPERTENSION 03/04/2018 LEONEL ORTIZ MD, Ot K21.0 GASTRO-ESOPHAGEAL REFLUX DISEASE WITH ES 03/04/2018 LEONEL ORTIZ MD, Ot K22.2 ESOPHAGEAL OBSTRUCTION 03/04/2018 LEONEL ORTIZ MD, Ot K29.70 GASTRITIS, UNSPECIFIED, WITHOUT BLEEDING 03/04/2018 LEONEL ORTIZ MD, Ot K44.9 DIAPHRAGMATIC HERNIA WITHOUT OBSTRUCTION 03/04/2018 LEONEL ORTIZ MD, Ot 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 03/04/2018 LEONEL ORTIZ MD, Ot Z88.1 ALLERGY STATUS TO OTHER ANTIBIOTIC AGENT 03/04/2018 LEONEL ORTIZ MD, Ot Z88.5 ALLERGY STATUS TO NARCOTIC AGENT STATUS 03/04/2018 LEONEL ORTIZ MD, Ot Z88.6 ALLERGY STATUS TO ANALGESIC AGENT STATUS Procedures Code Description Performed By Performed On 59.79 URIN INCONTIN REPAIR NEC 01/28/2012 79.36 OP RED-INT FIX TIB/FIBUL 06/17/2012 82815 HEMOCCULT 09/07/2012 36114 PAP SMEAR 09/13/2012 28590 ROUTINE VENIPUNCTURE 10/11/2012 52031 A1C (IN-HOUSE) 10/11/2012 25232 URINE DRUG SCREEN (IN-HOUSE ) 10/11/2012 07510 MICRO ALBUMIN-IN HOUSE 10/11/2012 61834 CMP 10/11/2012 53946 LIPID PANEL 10/11/2012 6777366 GFR CALC (RESULT ONLY) 10/11/2012 61660 MICROALBUMIN 10/12/2012 12355 URINE DRUG SCREEN (IN-HOUSE ) 10/22/2012 59956 MAMMOGRAM, SCREENING 10/24/2012 Q0091 PAP SMEAR OBTAIN SMEAR 10/24/2012 76317 ROUTINE VENIPUNCTURE 12/02/2012 06334 URINE DRUG SCREEN (IN-HOUSE ) 12/02/2012 39925 URINE PCP GC/MS 12/03/2012 40846 TSH 12/04/2012 17701 ROUTINE VENIPUNCTURE 02/08/2013 31401 A1C (IN-HOUSE) 02/08/2013 60976 URINE DRUG SCREEN (IN-HOUSE ) 02/08/2013 52000 MICRO ALBUMIN-IN HOUSE 02/08/2013 85204 CMP 02/08/2013 0355366 GFR CALC (RESULT ONLY) 02/08/2013 26137 CBC 02/08/2013 75162 MICROALBUMIN 02/08/2013 ISRAEL Tafoya, Vivian 02/11/2013 22251 DEBRIDE NAIL >6 06/03/2013 55293 ROUTINE VENIPUNCTURE 08/10/2013 G0008 FLU ADMINISTRATION ( MEDICARE ONLY) 08/10/2013 15452 URINE DRUG SCREEN (IN-HOUSE ) 08/10/2013 42437 CBC 08/10/2013 21194 CMP 08/10/2013 33353 LIPID PANEL 08/10/2013 2693571 GFR CALC (RESULT ONLY) 08/10/2013 72717 TSH 08/11/2013 90616 A1C (RML) 08/11/2013 28755 UA W/ CULTURE IF INDICATED 08/17/2013 27578 CULTURE URINE 08/18/2013 60785 DEBRIDE NAIL >6 09/02/2013 65011 DEBRIDE NAIL >6 12/09/2013 11040 CMP 2014 24570 MAGNESIUM 2014 33896 A1C (IN-HOUSE) 2014 83426 ROUTINE VENIPUNCTURE 02/27/2014 6412028 GFR CALC (RESULT ONLY) 02/27/2014 10867 BMP 02/27/2014 73855 DEBRIDE NAIL >6 03/10/2014 05174 URINE DRUG SCREEN (IN-HOUSE ) 04/03/2014 78759 ROUTINE VENIPUNCTURE 05/22/2014 JEFERSON AREVALO 05/22/2014 70689 A1C (IN-HOUSE) 05/22/2014 8727928 GFR CALC (RESULT ONLY) 05/22/2014 91496 CMP 05/22/2014 24857 TSH 05/22/2014 Jeferson Arevalo 06/20/2014 62671 ROUTINE VENIPUNCTURE 08/28/2014 91908 OXIMETRY 08/28/2014 54935 A1C (IN-HOUSE) 08/28/2014 63527 BMP 08/28/2014 43383 TSH 08/28/2014 86359 OXIMETRY 11/13/2014 82786 ROUTINE VENIPUNCTURE 11/27/2014 91057 XRAY CHEST 2 VIEW 11/27/2014 02669 CMP 11/27/2014 48628 TSH 11/27/2014 16130 CBC 11/27/2014 56192 MYCOPLASMA ANTIBODY 11/27/2014 56899 XRAY KNEE LEFT, 1 OR 2 VIEWS 12/11/2014 23573 XRAY ANKLE R, 2 VIEWS 12/11/2014 76058 ROUTINE VENIPUNCTURE 02/19/2015 71911 ECHO 2D 02/19/2015 65188 [employer] 02/19/2015 CARDIOLOG BRADLY KIRBY 02/19/2015 50560 MAGNESIUM 02/19/2015 58142 CBC 02/19/2015 8797699 GFR CALC (RESULT ONLY) 02/19/2015 55369 CMP 02/19/2015 4688350 SPTYPE 02/19/2015 34653 TSH 02/19/2015 79611 ROUTINE VENIPUNCTURE 02/27/2015 15754 [facility] 02/27/2015 3258469 GFR CALC (RESULT ONLY) 02/27/2015 Results Test Result Range [facility] - 01/25/18 11:55 GLUCOSE 92 mg/dL 65-99 UREA NITROGEN (BUN) 20 mg/dL 7-25 CREATININE 0.86 mg/dL 0.50-1.05 eGFR NON-AFR. WELSH 77 mL/min/1.73m2 > OR=60 eGFR 89 mL/min/1.73m2 [...] culture - 02/21/18 18:11 Bacterial urine culture [id number] NRG COLONY COUNT >100,000/ML NRG Encounters ACCT No. Visit Date/Time Discharge Status Pt. Type Provider Facility Loc./Unit Complaint [id number] 02/27/2015 09:51:00 02/27/2015 23:59:59 CLS Outpatient MADL KIMBERLY ETELVINA L [id number] 02/19/2015 08:48:00 02/19/2015 23:59:59 CLS Outpatient MADL ETELVINA HARRIS [id number] 02/09/2015 08:56:00 02/09/2015 23:59:59 CLS Outpatient LADONNA SALGUERO DO [id number] 12/11/2014 14:31:00 12/11/2014 23:59:59 CLS Outpatient MADL ETELVINA HARRIS [id number] 12/11/2014 14:31:00 12/11/2014 23:59:59 CLS Outpatient LADONNA SALGUERO DO [id number] 11/27/2014 13:24:00 11/27/2014 23:59:59 CLS Outpatient LADONNA SALGUERO DO [id number] 11/27/2014 13:24:00 11/27/2014 23:59:59 CLS Outpatient MADL ETELVINA HARRIS L [id number] 11/13/2014 09:52:00 11/13/2014 23:59:59 CLS Outpatient MADL [employer] EXPERTETELVINA L [id number] 10/23/2014 13:14:00 10/23/2014 23:59:59 CLS Outpatient MADL [employer], ETELVINA L [id number] 09/25/2014 13:26:00 09/25/2014 23:59:59 CLS Outpatient MADL [employer] EX[employer], ETELVINA L [id number] 08/28/2014 09:22:00 08/28/2014 23:59:59 CLS Outpatient MADL [employer] EX[employer], ETELVINA L [id number] 08/28/2014 09:22:00 08/28/2014 23:59:59 CLS Outpatient MADL [employer] EXPERT, ETELVINA L [id number] 07/24/2014 09:55:00 07/24/2014 23:59:59 CLS Outpatient SALGUERO DO LADONNA Wright [id number] 06/19/2014 09:11:00 06/19/2014 23:59:59 CLS Outpatient SALGUERO DO LADONNA Wright [id number] 05/22/2014 13:40:00 05/22/2014 23:59:59 CLS Outpatient MADL AUTOMATION CONTROLS EXPERTETELVINA L [id number] 05/22/2014 13:40:00 05/22/2014 23:59:59 CLS Outpatient MADL [employer] EXPERT, ETELVINA L [id number] 04/03/2014 14:31:00 04/03/2014 23:59:59 CLS Outpatient MADL [employer] EXPERT, ETELVINA L [id number] 04/03/2014 14:31:00 04/03/2014 23:59:59 CLS Outpatient SALGUERO DOLADONNA [id number] 03/10/2014 08:26:00 03/10/2014 23:59:59 CLS Outpatient SALGUERO DOLADONNA [id number] 03/10/2014 08:26:00 03/10/2014 23:59:59 CLS Outpatient SALGUERO DO, LADONNA Wright [id number] 02/27/2014 14:59:00 02/27/2014 23:59:59 CLS Outpatient SALGUERO DOLADONNA [id number] 2014 09:28:00 2014 23:59:59 CLS Outpatient BYRON BOSS MD [id number] 2014 09:28:00 2014 23:59:59 CLS Outpatient BYRON BOSS MD [id number] 12/09/2013 07:39:00 12/09/2013 23:59:59 CLS Outpatient LADONNA SALGUERO DO Adriana [id number] 09/22/2013 09:11:00 09/22/2013 23:59:59 CLS Outpatient BYRON BOSS MD [id number] 09/02/2013 07:40:00 09/02/2013 23:59:59 CLS Outpatient TERE SALGUERO DORadha Wright [id number] 08/25/2013 15:49:00 08/25/2013 23:59:59 CLS Outpatient BYRON BOSS MD [id number] 08/17/2013 13:19:00 08/17/2013 23:59:59 CLS Outpatient BYRON BOSS MD [id number] 02/08/2013 10:18:00 02/08/2013 23:59:59 CLS Outpatient BYRON BOSS MD [id number] 12/07/2012 08:34:00 12/07/2012 23:59:59 CLS Outpatient ROMELIA FISCHER MD [id number] 12/02/2012 14:59:00 12/02/2012 23:59:59 CLS Outpatient LAURIE MORA APRN [id number] 11/01/2012 08:50:00 11/01/2012 23:59:59 CLS Outpatient [id number] 10/11/2012 08:39:00 10/11/2012 23:59:59 CLS Outpatient LAURIE MORA APRN [id number] 09/07/2012 09:19:00 09/07/2012 23:59:59 CLS Outpatient LAURIE MORA APRN [id number] 08/10/2013 14:39:00 Document Registration [id number] 06/03/2013 08:05:00 Document Registration [id number] 06/03/2013 08:05:00 Document Registration [id number] 02/08/2013 10:18:00 Document Registration [id number] 02/25/2018 10:40:00 02/25/2018 23:59:59 [facility] [id number] 2018 11:00:00 Document Registration [id number] 03/03/2018 09:01:00 03/03/2018 11:50:00 DIS Outpatient LEONEL ORTIZ MD [facility] ENDO DYSPHAGIA [id number] 02/26/2018 05:52:00 02/26/2018 12:49:00 DIS Outpatient LEONEL ORTIZ MD [facility] PREOP EGD [id number] 02/21/2018 16:36:00 02/21/2018 19:07:00 DIS Emergency HUANG PRAKASH FELICIA K [facility] ER WEAKNESS [id number] 02/15/2018 10:22:00 02/15/2018 15:46:00 DIS Emergency MARLA EVERETT MD [facility] ER CP [id number] 01/07/2018 16:24:00 01/07/2018 19:40:00 DIS Emergency HARDEEP DORANTES [facility] ER FALL WITH BIG BUMP ON L LEG [id number] 12/29/2017 12:20:00 12/29/2017 23:59:59 CLS Outpatient KOFI OLVERA FACC, ALI FACP CCDS [facility] RAD I25.10 CAD [id number] 12/21/2017 13:54:00 12/21/2017 23:59:59 CLS Outpatient KYLAH CREWS [facility] CARD I25.5 CARDIOMYOPATHY [id number] 12/02/2017 08:24:00 12/02/2017 23:59:59 CLS Outpatient KOFI OLVERA FACC, ALI FACP CCDS [facility] RT R06.02 SOB [id number] 12/01/2017 08:04:00 12/01/2017 23:59:59 CLS Outpatient KOFI OLVERA FACC, ALI FACP CCDS [facility] CARD R06.02 SOB [id number] 11/26/2017 11:24:00 11/26/2017 23:59:59 CLS Outpatient KOFI OLVERA FACC, ALI FACP CCDS [facility] CARD R06.02 SOB [id number] 11/09/2017 12:27:00 11/09/2017 23:59:59 CLS Outpatient BILL CLEMENTE DO [facility] RAD ABNORMAL MAMMO [id number] 10/27/2017 12:24:00 10/27/2017 23:59:59 CLS Outpatient BILL CLEMENTE DO [facility] RAD SCREENING [id number] 12/31/2016 10:19:00 12/31/2016 23:59:59 CLS Outpatient WASHINGTON ADELFO Franc SHOE DYER [facility] RAD AAA [id number] 04/07/2016 08:25:00 04/07/2016 11:40:00 DIS Outpatient JEFERSON SALDANA MD [facility] SDC DYSKINESIA [id number] 04/02/2016 05:42:00 04/02/2016 11:05:00 DIS Outpatient JEFERSON SALDANA MD [facility] PREOP DYSKINSIA [id number] 03/11/2016 11:17:00 03/11/2016 23:59:59 CLS Outpatient KOFI OLVERA FACCBRADLY FACP CCDS [facility] LAB CAD, HYPERLIPIDEMIA [id number] 03/09/2016 16:47:00 03/09/2016 19:30:00 DIS Emergency MARLA EVERETT MD [facility] ER FEVER/DIARRHEA [id number] 03/05/2016 19:11:00 03/05/2016 21:37:00 DIS Emergency INES REYNOSO MD [facility] ER EYE SWELLING/ANKLE PAIN FROM FALL [id number] 12/18/2015 08:53:00 12/18/2015 23:59:59 CLS Outpatient KYLAH CREWS SHOE DYER [facility] RAD ABDOMEN AORTIC ECTASIA [id number] 12/09/2015 10:18:00 12/09/2015 12:47:00 DIS Emergency BETTINA ROMAN MD [facility] ER R EYE SWELLING/PAIN [id number] 12/01/2015 13:15:00 12/01/2015 15:12:00 DIS Emergency MARLA EVERETT MD [facility] ER R EYE SWELLING [id number] 10/07/2015 16:35:00 10/07/2015 18:15:00 DIS Emergency JESSIE OLVERA, BETTINA Nation [facility] ER POST OP/BLEEDING [id number] 10/04/2015 10:45:00 10/04/2015 23:59:59 CLS Outpatient BILL CLEMENTE DO [facility] LAB RESISTANT GUINFECTIONS [id number] 09/13/2015 10:52:00 09/13/2015 23:59:59 CLS Outpatient ELEONORA KYLAH Maxine SHOE DYER [facility] LAB HLP,CAD [id number] 07/30/2015 15:05:00 07/30/2015 16:25:00 DIS Emergency HARDEEP DORANTES [facility] ER BACK,HIP PAIN [id number] 07/16/2015 17:17:00 07/16/2015 18:20:00 DIS Emergency THOMPSON QURESHI [employer] [facility] ER L ARM, L KNEE INJ [id number] 07/09/2015 13:52:00 07/09/2015 23:59:59 CLS Outpatient BILL CLEMENTE DO [facility] RAD TRAUMA L 3RD TOE W/ DIABETES [id number] 06/11/2015 09:00:00 06/11/2015 23:59:59 CLS Outpatient KOFI OLVERA FACC, BRADLY NIX CCDS [facility] RAD ABDOMINAL AORTIAL ECTASIA [id number] 04/10/2015 10:25:00 04/10/2015 23:59:59 CLS Outpatient BILL CLEMENTE DO [facility] RAD R ANKLE PAIN, HX OF FX SURGERY [id number] 03/26/2015 11:17:00 03/26/2015 23:59:59 CLS Outpatient BILL CLEMENTE DO [facility] RAD BACK PAIN, [id number] 03/16/2015 10:23:00 03/16/2015 23:59:59 CLS Outpatient BILL CLEMENTE DO [facility] LAB DM II,CAD,HLP [id number] 03/16/2015 10:20:00 03/16/2015 23:59:59 CLS Outpatient KYLAH CREWS SHOE DYER [facility] LAB ELECTROLYTE DEPLETION ,CAD,HTN,HLP [id number] 03/01/2015 07:26:00 03/01/2015 23:59:59 CLS Outpatient ETELVINA LEONARD SHOE DYER [facility] CARD NEAR SYNCOPE EPISODE CAD [id number] 02/19/2015 16:09:00 02/20/2015 13:40:00 DIS Inpatient CAROLYN OLVERA, QUE Bowser [facility] 4TH ORTHOSTATIC HYPOTENSION; ACUTE RENAL FAILURE [id number] 12/30/2014 11:12:00 12/30/2014 14:54:00 DIS Emergency INES REYNOSO MD [facility] ER SOA,DIZZINESS [id number] 11/03/2014 08:58:00 11/03/2014 10:36:00 DIS Emergency DANIELITO SORIANO MD [facility] ER COUGH/CONGESTION [id number] 10/30/2014 14:50:00 10/30/2014 16:25:00 DIS Emergency HARDEEP DORANTES [facility] ER NAUSEATED/BODYACHES/ WEAKNESS EARACHE/RINGING [id number] 10/01/2014 13:53:00 10/01/2014 14:57:00 DIS Emergency FELICIA ENCINAS DO K [facility] ER RECTAL BLEEDING [id number] 09/11/2014 09:46:00 09/11/2014 23:59:59 CLS Outpatient KOFI OLVERA FACC, BRADLY NIX CCDS [facility] CARD ISCHEMIC CARDIO MYOPATHY,CAD [id number] 09/01/2014 10:58:00 09/01/2014 11:40:00 DIS Emergency THOMPSON QURESHI APRN [facility] ER SWOLLEN EYE [id number] 08/31/2014 16:55:00 08/31/2014 18:16:00 DIS Emergency THOMPSON QURESHI APRN [facility] ER NECK SWELLING [id number] 07/10/2014 09:07:00 07/10/2014 11:55:00 DIS [facility] [id number] 07/05/2014 07:29:00 07/05/2014 23:59:59 CLS Outpatient JEFERSON SALDANA MD [facility] PREOP DYSPHAGIA [id number] 06/05/2014 08:24:00 06/05/2014 11:43:00 DIS Outpatient JEFERSON SALDANA MD [facility] SCREENING;FAMILY HISTORY [id number] 05/31/2014 07:28:00 05/31/2014 23:59:59 CLS Outpatient JEFERSON SALDANA MD [facility] PREOP SCREENING;FAMILY HISTORY [id number] 05/29/2014 12:18:00 05/29/2014 23:59:59 CLS Outpatient KYLAH CREWS [facility] LAB POST HEART CATH [id number] 05/23/2014 06:24:00 05/23/2014 20:30:00 DIS Outpatient KOFI OLVERA FACC, BRADLY NIX CCDS [facility] CATH SHORTNESS OF BREATH CAD ABNORMAL STRESS TEST [id number] 05/08/2014 12:02:00 05/08/2014 23:59:59 CLS Outpatient KYLAH CREWS [facility] CARD CAD [id number] 02/13/2014 12:30:00 02/13/2014 14:00:00 DIS Emergency THOMPSON QURESHI [employer] [facility] ER FALL/BACK PAIN [id number] 02/09/2014 19:30:00 02/11/2014 10:45:00 DIS Inpatient LADONNA SALGUERO DO [facility] ICU ACUTE COPD EXACERBATION [id number] 2014 11:48:00 2014 23:59:59 CLS Outpatient BYRON BOSS MD [facility] LAB HTN,HYPERLIPADEIA [id number] 12/12/2013 06:44:00 12/12/2013 11:43:00 DIS Outpatient [facility] RIGHT ANKLE [id number] 12/05/2013 14:33:00 12/05/2013 23:59:59 CLS Outpatient PATRICIA MCDONALD MD [facility] PREOP PAINFUL HARDWARE RIGHT ANKLE [id number] 11/04/2013 12:22:00 11/04/2013 12:46:00 DIS Emergency KARLOS OLVERA, MARLA Ackerman [facility] ER SUTURE REMOVAL [id number] 10/31/2013 10:42:00 10/31/2013 23:59:59 CLS Outpatient KYLAH CREWS [facility] CARD CAD,HTN [id number] 10/25/2013 08:26:00 10/25/2013 23:59:59 CLS Outpatient KYLAH CREWS [facility] LAB CAD,HEART VALVE DISEASE,HTN,HYPERLIPIDEMIA,COPD [id number] 10/25/2013 18:12:00 10/25/2013 20:10:00 DIS Emergency HARDEEP DORANTES [facility] ER FOOT INJ [id number] 10/21/2013 06:02:00 10/22/2013 11:11:00 DIS Outpatient EDUARDO VILLEGAS MD [facility] INTRINSIC SPHINCTER DEFICIENCY; INCONTINENCE [id number] 10/17/2013 09:25:00 10/17/2013 23:59:59 CLS Outpatient EDUARDO VILLEGAS MD [facility] PREOP INTRINSIC SPHINCTER DEFICIENCY; INCONTINENCE [id number] 08/03/2013 06:00:00 08/03/2013 09:56:00 DIS Outpatient EDUARDO VILLEGAS MD [facility] INCONTINENCE [id number] 07/27/2013 12:35:00 07/27/2013 23:59:59 CLS Outpatient EDUARDO VILLEGAS MD [facility] PREOP INCONTINENCE [id number] 06/13/2013 14:57:00 06/13/2013 23:59:59 CLS Outpatient [id number] 04/18/2013 22:12:00 04/18/2013 23:34:00 DIS Emergency FELICIA ENCINAS DO [facility] ER REACTION TO MEDICATION [id number] 04/17/2013 14:11:00 04/17/2013 15:42:00 DIS Emergency MARCO A VAN MD [facility] ER VOMITING BODY ACHES [id number] 03/26/2015 11:17:00 Document Registration [id number] 01/19/2013 18:23:00 Document Registration [id number] 01/01/2013 15:27:00 Document Registration [id number] 12/26/2012 14:21:00 Document Registration [id number] 11/11/2012 16:20:00 Document Registration [id number] 10/24/2012 23:40:00 Document Registration [id number] 09/19/2012 19:49:00 Document Registration [id number] 09/13/2012 10:47:00 Document Registration [id number] 09/08/2012 15:08:00 Document Registration [id number] 09/04/2012 17:10:00 Document Registration [id number] 06/12/2012 16:25:00 Document Registration [id number] 06/03/2012 10:41:00 Document Registration [id number] 04/16/2012 09:50:00 Document Registration [id number] 03/17/2012 10:58:00 Document Registration [id number] 03/08/2012 10:14:00 Document Registration [id number] 02/01/2012 18:50:00 Document Registration [id number] 01/28/2012 06:00:00 Document Registration [id number] 01/21/2012 09:31:00 Document Registration [id number] 11/11/2011 07:21:00 Document Registration [id number] 10/30/2011 08:09:00 Document Registration [id number] 10/27/2011 07:16:00 Document Registration [id number] 10/24/2011 12:36:00 Document Registration [id number] 10/19/2011 11:22:00 Document Registration [id number] 08/07/2011 10:17:00 Document Registration [id number] 07/14/2011 13:47:00 Document Registration [id number] 07/06/2011 18:30:00 Document Registration [id number] 03/19/2011 05:41:00 Document Registration [id number] 03/13/2011 12:47:00 Document Registration [id number] 02/12/2011 10:12:00 Document Registration [id number] 02/06/2011 08:14:00 Document Registration [id number] 01/22/2011 05:55:00 Document Registration [id number] 01/15/2011 10:27:00 Document Registration [id number] 11/08/2010 10:08:00 Document Registration [id number] 09/05/2010 05:48:00 Document Registration [id number] 09/04/2010 09:00:00 Document Registration [id number] 08/26/2010 07:15:00 Document Registration [id number] 08/07/2010 14:40:00 Document Registration [id number] 08/02/2010 08:36:00 Document Registration [id number] 05/26/2010 12:24:00 Document Registration [id number] 04/14/2010 17:58:00 Document Registration [id number] 03/08/2010 10:03:00 Document Registration [id number] 03/07/2010 09:13:00 Document Registration [id number] 02/21/2010 08:56:00 Document Registration [id number] 08/02/2009 18:35:00 Document Registration [id number] 07/30/2015 23:46:44 ACT Document Registration
[2018-03-09 07:18] LABS: HEMOGLOBIN 11.6 G/DL (11.5-16.0); MEAN PLATELET VOLUME 10.9 FL (7.4-10.4); RED BLOOD COUNT 4.68 10^6/uL (4.35-5.85); RED CELL DISTRIBUTION WIDTH 17.8 % (10.0-14.5); WHITE BLOOD COUNT 12.4 10^3/uL (4.3-11.0)
[2018-03-09 07:28] LABS: PROTHROMBIN TIME PATIENT 12.8 SEC (12.2-14.7)
[2018-03-09] MEDS ORDERED: ASPI-586 PO (07:35)
[2018-03-09] MEDS ORDERED: METO-351 PO (07:35)
[2018-03-09] MEDS ORDERED: PANT40TA2 PO (07:35)
[2018-03-09] MEDS ORDERED: OXYGEN (07:35)
[2018-03-09] MEDS ORDERED: IPRA4AER IH (07:35)
[2018-03-09 07:38] LABS: ALANINE AMINOTRANSFERASE 13 U/L (0-55); ALBUMIN 3.8 GM/DL (3.2-4.5); ALKALINE PHOSPHATASE 104 U/L (40-136); BILIRUBIN,TOTAL 0.2 MG/DL (0.1-1.0); BUN/CREATININE RATIO 27; CARBON DIOXIDE 23 MMOL/L (21-32); CHLORIDE 108 MMOL/L (98-107); CHOLESTEROL 143 MG/DL (< 200); CREATININE SERUM 0.78 MG/DL (0.60-1.30); GFR ESTIMATED > 60; GLUCOSE 85 MG/DL (70-105); HDL CHOLESTEROL 48 MG/DL (40-60); POTASSIUM 4.2 MMOL/L (3.6-5.0); SODIUM 141 MMOL/L (135-145); TOTAL PROTEIN 7.7 GM/DL (6.4-8.2); TRIGLYCERIDES 154 MG/DL (<150); VLDL CHOLESTEROL 31 MG/DL (5-40)
[2018-03-09] MEDS ORDERED: LIDOCAINE 1% INJ 50 ML (XYLOCAINE) VIAL ONE (07:58)
[2018-03-09] MEDS ORDERED: MIDAZOLAM 5 MG/5 ML (VERSED) VIAL ONE (07:58)
[2018-03-09] MEDS ORDERED: diphenhydrAMINE 50 MG/ML INJ (BENADRYL) ONE (07:59)
[2018-03-09] MEDS ORDERED: fentaNYL INJECTION 100 MCG/2 ML AMP ONE (07:59)
--- NOTE | 2018-03-09 08:59 | Cardiac Procedure Note-CS/ASA ---
Pre-Procedure Note Pre-Op Procedure Note H&P Reviewed The H&P was reviewed, patient examined and no changes noted. Date H&P Reviewed: Mar 09, 2018 Time H&P Reviewed: 08:25 Conscious Sedation Pre-Proced Time Reviewed: 08:25 ASA Class: 3 Airway Mallampati Classification: (navajo appropriate class) I. II. III, IV Lungs Heart ASA score ASA 1: a normal healthy patient ASA 2: a patient with a mild systemic disease (mid diabetes, controlled hypertension, obesity ASA 3: a patient with a severe systemic disease that limits activity (angina , COPD, prior Myocardial infarction) ASA 4: a patient with an incapacitating disease that is a constant threat to life (CHF, renal failure) ASA 5: a moribund patient not expected to survive 24 hrs. (ruptured aneurysm) ASA 6: a declared brain patient whose organs are being harvested. For emergent operations, add the letter E after the classification Grade 3 Sedation Plan: Analgesia, Amnesia, Plan communicated to team members, Discussed options with patient/fam, Discussed risks with patient/fam Note The patient is an appropriate candidate to undergo the planned procedure, sedation, and anesthesia. The patient immediately re-assessed prior to indication. BRADLY KIRBY MD FACP FAC CCDS Mar 09, 2018 08:59
[2018-03-09] MEDS ORDERED: PATIENT MAY USE OWN MEDS, ALL PO SCH (09:00)
--- NOTE | 2018-03-09 09:02 | Discharge Inst-Post CATH ---
Discharge Inst-CATH Post Cardiac Cath D/C Inst Follow Up/Plan HOLD METFORMIN UNTIL THE EVENING OF 03/11/18 No smoking F/u with Dr Martinez in 1-2 weeks CARDIAC CATH DISCHARGE INSTRUCTIONS *Hold Metformin for 48 hours post heart cath. ACTIVITY * Go Home directly and rest. * Limit activity of the leg (or wrist if it was used) for 7 days including aerobics, swimming, jogging, bicycling, etc. * Restrict stair-climbing for 7 days if possible, if not, climb up with your non -cath leg, then bring together on the same step. * Avoid lifting, pushing, pulling or excessive movement of the affected extremity for 7 days. * Customary sexual activity may be resumed after 2 days-use caution not to use a position that strains or causes pain to the affected extremity. * No driving for 24 hours. * NO SMOKING. * Avoid straining for bowel movements for 7 days. * Gentle walking on level ground is allowed. * Returning to work will depend on the type of procedure and the results. Your doctor will discuss this with you. CALL YOUR DOCTOR FOR ANY OF THE FOLLOWING: *If bleeding from the puncture site occurs- Apply gentle pressure to site with clean cloth and call your doctor or EMS. * If a knot or lump forms under the skin, increases in size, or causes pain. * If bruising appears to be worsening or moving further down your leg instead of disappearing. * Temperature above 101 F. CARE OF YOUR GROIN INCISION; * Bruising or purple discoloration of the skin near the puncture site is common. * You may shower only, no bathtub bathing for 5 days. Be careful to avoid slipping as your leg may feel stiff. * If a closure device was used on your femoral artery, please see the attached guide regarding care of the device and your leg. * REMOVE the dressing from your groin the next day after your procedure in the shower. CARE OF YOUR WRIST INCISION; * Bruising or purple discoloration of the skin near the puncture site is common. * You may shower. * DO NOT submerge wrist. * Remove dressing in 24 hours. BRADLY MARTINEZ MD [facility] CCDS Mar 09, 2018 09:02
--- NOTE | 2018-03-09 09:03 | Discharge Inst-Cardiology ---
Discharge Inst-Cardiac Discharge Medications Continued Medications: Albuterol Sulfate (Proair Hfa) 1 Puff Puff 2 PUFF IH Q4H PRN for WHEEZING, PUFF 1 PUFF = 90 MCG Albuterol/Ipratropium (Combivent Respimat Inhal [place]) 4 Gm Aero 2 PUFF IH QID, INH Aspirin (Aspir 81) 81 Mg Tablet.dr 81 MG PO DAILY, TAB Atorvastatin Calcium (Atorvastatin Calcium) 40 Mg Tablet 40 MG PO HS, TAB Budesonide/Formoterol Fumarate (Symbicort 80-4.5 Mcg Inhaler) 10.2 Gm Hfa.aer.ad 2 PUFF IH BID, INHALER Gabapentin (Gabapentin) 300 Mg Capsule 600 MG PO TID, CAP take 2 (300mg) tabs Hydroxyzine HCl (Hydroxyzine HCl) 10 Mg Tablet 20 MG PO QID PRN for ANXIETY TAKES 2 (10 MG) TABLETS QID PRN Levothyroxine Sodium (Levothyroxine Sodium) 50 Mcg Tablet 50 MCG PO DAILY Loratadine (Loratadine) 10 Mg Tablet 10 MG PO DAILY Meloxicam (Meloxicam) 15 Mg Tablet 15 MG PO DAILY Metformin HCl (Metformin HCl) 500 Mg Tablet 500 MG PO BID, TAB Metoprolol Succinate (Toprol Xl) 25 Mg Tab.er.24h 25 MG PO DAILY, TAB Nitroglycerin (Nitroglycerin) 0.4 Mg Tab.subl 0.4 MG SL UD PRN for CHEST PAIN, TAB Oxybutynin Chloride (Oxybutynin Chloride ER) 15 Mg Tab.er.24 15 MG PO DAILY, TAB Pantoprazole Sodium (Protonix) 40 Mg Tablet.dr 40 MG PO DAILY, TAB [Oxygen] () 2 L NA HS Patient Instructions Patient Instructions: HOLD METFORMIN UNTIL THE EVENING OF 03/11/18 No smoking BRADLY KIRBY MD [facility] CCDS Mar 09, 2018 09:03
[2018-03-09] MEDS ORDERED: ACETAMINOPHEN 500 MG TAB (TYLENOL) ONE (09:34)
[2018-03-09] MEDS ORDERED: ACETAMINOPHEN 500 MG TAB (TYLENOL) PO PRN (09:45)
--- NOTE | 2018-03-09 09:47 | CARDIAC CATHETERIZATION ---
DATE OF SERVICE: 03/09/2018 CARDIAC CATHETERIZATION REPORT The patient is a 53-year-old lady, who has a history of coronary artery disease and history of drug-eluting stenting of the right coronary artery in 12/2008. On a myocardial perfusion imaging of 11/2017, left ventricular ejection fraction was calculated to be 33%. On subsequent MUGA scan of 12/21/2017, left ventricular ejection fraction of 48%. To evaluate palpitations, she had an ambulatory monitor worker for 2 weeks. This indicated brief runs of supraventricular tachycardia and two 4-beat runs of wide complex tachycardia. Given all this history, cardiac catheterization was recommended for evaluation for cardiomyopathy and coronary artery disease. Informed consent was obtained. DESCRIPTION OF PROCEDURE: She was brought to the cardiac catheterization laboratory in a fasting state. Right groin was prepared and draped in usual sterile fashion. Lidocaine 1% with local anesthesia. Modified Seldinger technique to advance a 5-Cuban sheath into right femoral artery. She has had abdominal aortic aneurysm endovascular repair. All catheter exchanges were carried out over an exchange length wire. We used a 5-Cub[place] JR4 catheter for right coronary angiography and JL4 catheter for left coronary angiography. We used a pigtail catheter for left heart catheterization and left ventricular angiography. At the end of the procedure, angiography of the right femoral artery was carried out through the sheath and Mynx was used to achieve hemostasis. She tolerated the procedure well. HEMODYNAMICS: Left ventricular end-diastolic pressure following coronary angiography was 19 mmHg. There was no significant pressure gradient on pullback across the aortic valve. Ascending aortic pressure was 142/69 with a mean of 97 mmHg. CORONARY ANGIOGRAPHY: Mild coronary calcification is seen. Left main coronary artery is free of significant disease. Left anterior descending and left circumflex arteries have mild plaque. Right coronary artery is dominant. There is a widely patent stent in its mid portion. The mid right coronary artery has approximately 30% stenosis. LEFT VENTRICULAR ANGIOGRAPHY: Left ventricular angiography was carried out in right anterior oblique projection. There does not appear to be any distinct regional wall motion abnormalities. Left ventricular ejection fraction of 50% to 55%. There does not appear to be significant mitral regurgitation. CONCLUSIONS: 1. Mild coronary artery disease. Patent stent within the mid right coronary artery. 2. Well preserved global left ventricular systolic function with ejection fraction of 50% to 55%. 3. No significant mitral regurgitation. 4. Moderately elevated left ventricular end-diastolic pressure. DISCUSSION AND RECOMMENDATIONS: Based on results of the study, it appears appropriate to continue a conservative approach. Outpatient followup is advised. Job ID: [id number] DocumentID: [id number] Dictated Date: 03/09/2018 08:49:16 [employer] Date: 03/09/2018 09:46:34 Dictated By: BRADLY KIRBY MD, MA, FACP, FACC,
== END 2018-03-09 12:30 | disposition home or self-care (01) ==
LOC: CATH 06:49 → SURG 09:00 → CATH 12:30
PROVIDERS: ATTEND Internal Medicine Cardiovascular Disease
DX: I25.10 Atherosclerotic heart disease of native coronary artery without angina pectoris (principal); I25.5 Ischemic cardiomyopathy; I50.22 Chronic systolic (congestive) heart failure; E11.9 Type 2 diabetes mellitus without complications; I65.23 Occlusion and stenosis of bilateral carotid arteries; I44.7 Left bundle-branch block, unspecified; R00.2 Palpitations; R13.10 Dysphagia, unspecified; R06.02 Shortness of breath; F17.210 Nicotine dependence, cigarettes, uncomplicated; J44.9 Chronic obstructive pulmonary disease, unspecified; F41.9 Anxiety disorder, unspecified; F32.9 Major depressive disorder, single episode, unspecified; Z79.82 Long term (current) use of aspirin; Z79.84 Long term (current) use of oral hypoglycemic drugs; Z79.899 Other long term (current) drug therapy; Z95.5 Presence of coronary angioplasty implant and graft
CPT/HCPCS: 36415; 36430; 80053; 80061; 85027; 85610; 85730; 87081; 93458

== ENCOUNTER → 2018-03-31 | Outpatient (CLI) | payer MEDICAID, OTHER ==
[~2018-03-31] MED LIST changes: +ASPI-586 PO; +CATHETER FLUSH 10 ML SYR IV PRN; -HEParin (CATH LAB) 2,000 ML IV ONE; +IOHEXOL 350 MG/ML 150 ML (OMNIPAQUE 350) VIAL IV ONE; +METF500T5 PO; +METO-351 PO; +NS 250 ML (IVPB) BAG IV ONE; -NS IV 1000 ML 1,000 ML ONE; +OXYGEN
--- NOTE | 2018-03-31 13:47 | Diagnostic Imaging Report ---
PROCEDURE: CT angiography of the abdomen and chest with and without contrast. TECHNIQUE: After intravenous administration of contrast, thin section axial CT angiography of the abdomen and chest were obtained. Multiple MIP reformats were provided. INDICATION: Chest pain and hypertension. Patient has history of abdominal aortic aneurysm. COMPARISON: Comparison is made with CT chest from 12/30/2014 and CTA of the abdomen from 12/31/2016. FINDINGS: CTA chest: Calcification in the right lobe of the thyroid is stable. No axillary lymphadenopathy is detected. No hilar or mediastinal lymphadenopathy is detected. No pericardial or pleural fluid is detected. The thoracic aorta is normal in caliber. No dissection is identified. The pulmonary arterial system is without evidence of thromboembolism. Parenchymal evaluation does show some emphysematous changes. There are two nodules in the right upper lobe, image 66 and 69, largest 4 mm in size and fairly stable. There is some scarring in the right upper lobe. Subpleural density in posterolateral right lower lobe is stable at 7 mm. There is scarring in the right middle lobe and lingula. Overall aeration has improved since prior CT. IMPRESSION: 1. No evidence of thoracic aortic aneurysm or pulmonary embolism. 2. Improved aeration of both lungs. Previously seen nodules are stable. No acute feature is seen. CT abdomen: No discrete liver mass is identified. The gallbladder is unremarkable. Pancreas and spleen are unremarkable. No adrenal mass is detected. The kidneys are stable. Abdominal aortic aneurysm treated with an aortic stent graft is again noted. Aneurysm sac dimensions are approximately 3.4 cm AP x 3.3 cm transverse compared with 5.0 cm AP x 5.1 cm transverse. There are areas of increased density noted within the aneurysm sac, similar to prior exam. Endoleak cannot be entirely excluded without noncontrast imaging. No periaortic fluid collection is seen to suggest rupture or leakage. The bowel loops are normal in caliber. There is no ascites. IMPRESSION: 1. Overall decreased size of the excluded aneurysm sac when compared with CT from 12/31/2016. Patient is status post endograft. No acute feature in the abdomen is identified. Dictated by: Dictated on workstation # [id number]
== END ==
LOC: RAD 11:36
PROVIDERS: ATTEND Internal Medicine Cardiovascular Disease
DX: R91.8 Other nonspecific abnormal finding of lung field (principal); R07.89 Other chest pain; I10 Essential (primary) hypertension; E66.9 Obesity, unspecified; I71.4 Abdominal aortic aneurysm, without rupture; I25.10 Atherosclerotic heart disease of native coronary artery without angina pectoris; I65.23 Occlusion and stenosis of bilateral carotid arteries; Z72.0 Tobacco use; Z95.828 Presence of other vascular implants and grafts
CPT/HCPCS: 71275; 74175

== ENCOUNTER 2018-04-24 20:37 | Outpatient (CLI) | payer MEDICAID ==
[~2018-04-24 20:37] MED LIST changes: -CATHETER FLUSH 10 ML SYR IV PRN; -IOHEXOL 350 MG/ML 150 ML (OMNIPAQUE 350) VIAL IV ONE; -NS 250 ML (IVPB) BAG IV ONE
== END 2018-04-25 06:48 | disposition home or self-care (01) ==
LOC: SLEEP 20:37
PROVIDERS: ATTEND Nurse Practitioner Family
DX: R09.02 Hypoxemia (principal); R06.83 Snoring
CPT/HCPCS: 95810

== ENCOUNTER 2018-05-03 08:12 | Outpatient (RCR) | payer MEDICAID ==
[~2018-05-03 08:12] MED LIST changes: -AMLO5TAB2 PO; +AMLO5TAB7 PO; +CLON0.5T13; -CLON0.5T3; +HYDR-4227 PO; -HYDR-756 PO; +METF-397 PO; -METF500T5 PO
[2018-06-24 08:50] VITALS: BP 120/60
[2018-06-24 09:00] VITALS: BP 120/60
[2018-06-24 09:50] VITALS: BP 100/60
[2018-06-29 08:55] VITALS: BP 115/50
[2018-06-29 09:45] VITALS: BP 120/50
[2018-07-13 09:00] VITALS: BP 140/80
[2018-07-13 09:15] VITALS: BP 120/60
[2018-07-15 09:00] VITALS: BP 111/70
== END 2018-08-01 | disposition home or self-care (01) ==
LOC: PULM 08:12
PROVIDERS: ATTEND Nurse Practitioner Family
DX: J44.9 Chronic obstructive pulmonary disease, unspecified (principal); R06.02 Shortness of breath
CPT/HCPCS: 99211

== ENCOUNTER 2018-05-14 15:03 | Emergency (ER) | payer MEDICAID ==
[~2018-05-14] VITALS: Ht 165.1 cm; Wt 90.7 kg
[~2018-05-14 15:03] MED LIST changes: +AMLO5TAB2 PO; -AMLO5TAB7 PO; -CLON0.5T13; +CLON0.5T3; -HYDR-4227 PO; +HYDR-756 PO; -METF-397 PO; +METF500T5 PO
--- OUTSIDE RECORDS SUMMARY | 2018-05-14 15:08 | XMS REPORT | Clinical Summary ---
Author Author [facility] Organization [facility] Address Unknown Phone Unavailable Care Team Providers Care Separations Scientist Name Role Phone Osvaldo Palafox DO Unavailable [...] in the Health Information Management department at [phone] for further assistance in locating additional records.[facility] Allergies Active Allergy Reactions Severity Noted [...] [place] - referral to Dr. Carlton in Offensive Coordinator for vaginal pain Gross hematuria 10/24/2015 [...] See IC A&P note. 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
--- OUTSIDE RECORDS SUMMARY | 2018-05-14 15:10 | XMS REPORT ---
Author Author DENIA MANJARREZ Organization [facility] Address [address] [place] [address] Care Team Providers Care Business Center Manager Name Role Phone LOKI DENIA Unavailable PROBLEMS Type Condition ICD9-CM Code DWL33-NT Code Onset Dates Condition Status SNOMED Code Problem Essential hypertension I10 Active 81218076 Problem Lumbago with sciatica, left side M54.42 Active 216603959 Problem Acquired hypothyroidism E03.9 Active 181956746 Problem Prediabetes R73.03 Active 616420676 Problem Mixed hyperlipidemia E78.2 Active 509540632 Problem Reactive depression F32.9 Active 95475186 Problem Type 2 diabetes mellitus with hyperglycemia E11.65 Active 172063635866787 Problem Other chronic pain G89.29 Active 39060926 Problem Gastroesophageal reflux disease, esophagitis presence not specified K21.9 Active 833633602 Problem Lumbago with sciatica, right side M54.41 Active [id number] Problem Pharyngoesophageal dysphagia R13.14 Active 36502159 Problem DM 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 Active 82562200 ALLERGIES No Information ENCOUNTERS Encounter Location Date Diagnosis [facility] [id number] [place] [address] 71882- 8705 Jul, [facility] [id number] [place] [address] 78212- 4621 Jun, [facility] [id number] [place] [address] 30323- 4224 Apr, [facility] [id number] [place] [address] 45045 -7092 13 Apr, 2018 Seasonal allergic rhinitis, unspecified trigger J30.2 [facility] [id number] [place] [address] 85469- 7563 Apr, Onychomycosis B35.1 ; Onychocryptosis L60.0 and DM 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 [place] [address] 24587- 4561 Apr, Reactive depression F32.9 ; Thoracic myofascial strain, initial encounter S29.019A and Leg cramps R25.2 [place] [address] 21840- 9512 March, [place] [address] 99802- 9263 March, Type 2 diabetes mellitus with hyperglycemia E11.65 [place] [address] 68893- 8264 March, Reactive depression F32.9 [place] [address] 19207- 7657 March, Pain in thoracic spine M54.6 and Other chronic pain G89.29 [place] [address] 90656- 9822 Feb, [place] [address] 63313- 2749 Jan, Reactive depression F32.9 ; Essential hypertension I10 ; Gastroesophageal reflux disease, esophagitis presence not specified K21.9 ; Lumbago with sciatica, left side M54.42 and Lumbago with sciatica, right side M54.41 [place] [id number] [place] [address] 10714- 1144 Jan, Reactive depression F32.9 and Pharyngoesophageal dysphagia R13.14 [place] [address] 99036- 6950 Jan, [place] [address] 03215- 1418 Jan, Encounter for immunization Z23 [place] [id number] [place] [address]- 9378 Jan, Onychomycosis B35.1 and DM 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 [facility] [id number] [place] [address] 31696- 1579 Jan, [facility] [id number] [place] [address] 16309- 1289 Jan, Prediabetes R73.03 [facility] [id number] [place] [address] 84558- 2664 Dec, [facility] [address] 98225- 7863 Dec, Essential hypertension I10 ; Mixed hyperlipidemia E78.2 ; Acquired hypothyroidism E03.9 ; Reactive depression F32.9 and Prediabetes R73.03 [place] [id number] [place] [address] 42902- 5815 Dec, [facility] [id number] [place] [address] 41554- 4929 Dec, [place] [id number] [place] [address] 30342- 5288 Dec, DM 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 [place] [id number] [place] [address] 32513- 8854 Oct, [place] [id number] [place] [address] 65698- 6479 March, Onychomycosis B35.1 and DM 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 [facility] [id number] [place] [address] 16979- 0633 Jun, [facility] [id number] [place] [address] 4887 Jun, [facility] [address] [id number] [place] [address]- 2676 Jun, COPD with acute exacerbation 491.21 [facility] [address] [id number] [place] [address]- 6722 15 Apr, 2015 [facility] [place] [facility] [address] [id number] [place] [address]- 5124 Feb, [facility] [place] [facility] [address] [id number] [place] [address]- 9695 Feb, [facility] [address] [id number] [place] [address]- 0434 Jan, [facility] [address] [id number] [place] [address]- 2425 Jan, [facility] [address] [id number] [place] [address]- 1694 Jan, [facility] [address] [id number] [place] [address]- 6589 Jan, [facility] [place] [facility] [address] [id number] [place] [address]- 4722 Jan, [facility] [place] [facility] [address] [id number] [place] [address]- 8130 Jan, [facility] [place] [facility] [address] [id number] [place] [address]- 8449 Jan, [facility] [place] [facility] [address] [id number] [place] [address]- 8644 Jan, [facility] [place] [facility] [address] [id number] [place] [address]- 8176 Jan, [facility] [place] [facility] [address] [id number] [place] [address]- 1749 Jan, [facility] [place] [facility] [address] [id number] [place] [address]- 3906 19 Jan, 2015 [facility] [place] [facility] [address] [id number] [place] [address]- 3885 18 Jan, 2015 [facility] [place] [facility] [address] [id number] [place] [address]- 4888 18 Jan, 2015 [facility] [place] [facility] [address] [id number] [place] [address]- 5458 16 Jan, 2015 [facility] [place] [facility] [address] [id number] [place] [address]- 5025 16 Jan, 2015 [facility] [place] [facility] [address] [id number] [place] [address]- 7932 16 Jan, 2015 [facility] [place] [facility] [address] [id number] [place] [address]- 5321 16 Jan, 2015 [facility] [place] [facility] [address] [id number] [place] [address]- 0442 15 Jan, 2015 [facility] [place] [facility] [address] [id number] [place] [address]- 3386 13 Jan, 2015 [facility] [place] [facility] [address] [id number] [place] [address]- 6286 13 Jan, 2015 [facility] [place] [facility] [address] [id number] [place] [address]- 3912 13 Jan, 2015 [facility] [place] [facility] [address] [id number] [place] [address]- 1424 13 Jan, 2015 [facility] [place] [facility] [address] [id number] [place] [address]- 2736 12 Jan, 2015 [facility] [place] [facility] [address] [id number] [place] [address]- 6948 04 Jan, 2015 [facility] [place] [facility] [address] [id number] [place] [address]- 9240 04 Jan, 2015 [facility] [place] [facility] [address] [id number] [place] [address]- 6334 24 Dec, 2014 [facility] [place] [facility] [address] [id number] [place] [address]- 7043 Dec, 2014 [facility] [place] [facility] [address] [id number] [place] [address]- 9176 Dec, 2014 [facility] [place] [facility] [address] [id number] [place] [address]- 0636 Dec, 2014 [facility] [place] [facility] [address] [id number] [place] [address]- 5306 Dec, 2014 [facility] [place] [facility] [address] [id number] [place] [address]- 8214 Dec, 2014 [facility] [place] [facility] [address] [id number] [place] [address]- 1212 Dec, 2014 [facility] [place] [facility] [address] [facility] [id number] [place] [address]- 7494 Dec, [facility] [place] [facility] [address] [facility] [id number] [place] [address]- 8816 Dec, 2014 [facility] [place] [facility] [address] [facility] [id number] [place] [address]- 4606 Dec, [facility] [place] [facility] [address] [facility] [id number], [place] [address]- 1714 Dec, [facility] [place] [facility] [address] [facility] [id number], [place] [address]- 8722 Dec, [facility] [place] [facility] [address] [facility] [id number], [place] [address]- 5571 Nov, [facility] [place] [facility] [address] [id number], [place] [address]- 8956 Nov, [facility] [place] [facility] [address] [id number], [place] [address]- 6424 Nov, [facility] [place] [facility] [address] [facility] [id number], [place] [address]- 6524 Nov, [facility] [place] [facility] [address] [facility] [id number], [place] [address]- 7236 Nov, [facility] [place] [facility] [address] [id number] [place] [address]- 5304 Nov, [facility] [place] [facility] [address] [id number] [place] [address]- 3868 Nov, [facility] [place] [facility] [address] [id number] [place] [address]- 7067 Nov, [facility] [place] [facility] [address] [id number] [place] [address]- 4334 Nov, [facility] [place] [facility] [address] [id number] [place] [address]- 4109 Nov, [facility] [place] [facility] [address] [id number] [place] [address]- 4603 Nov, [facility] [place] [facility] [address] [facility] [id number] [place] [address]- 0674 Nov, [facility] [place] [facility] [address] [id number] [place] [address]- 2012 Oct, [facility] [place] [facility] [address] [id number] [place] [address]- 8302 Oct, [facility] [place] [facility] [address] [facility] [id number] [place] [address]- 9949 Oct, [facility] [place] [facility] [address] [id number] [place] [address]- 1771 Oct, [facility] [place] [facility] [address] [id number] [place] [address]- 2159 Oct, [facility] [place] [facility] [address] [id number] [place] [address]- 2072 Oct, [facility] [place] [facility] [address] [id number] [place] [address]- 5783 Oct, [facility] [place] [facility] [address] [id number] [place] [address]- 7110 Oct, [facility] [place] [facility] [address] [id number] [place] [address]- 1265 17 Oct, 2014 [facility] [place] [facility] [address] [id number] [place] 6154 17 Oct, 2014 [facility] [place] [facility] [address] [id number] [place] [address]- 0846 16 Oct, 2014 [facility] [place] [facility] [address] [id number] [place] [address]- 8431 16 Oct, 2014 [facility] [place] [facility] [address] [id number] [place] [address]- 4519 15 Oct, 2014 [facility] [place] [facility] [address] [id number] [place] [address]- 7938 Oct, [facility] [place] [facility] [address] [id number] [place] [address]- 1835 Oct, [facility] [place] [facility] [address] [id number] [place] [address]- 0679 Sep, [facility] [place] [facility] [address] [id number] [place] [address]- 9669 Sep, [facility] [place] [facility] [address] [id number] [place] [address]- 9010 Sep, [facility] [place] [facility] [address] [facility] [id number] [place] [address]- 9452 Sep, [facility] [place] [facility] [address] [id number] [place] [address]- 6232 Aug, [facility] [place] [facility] [address] [id number] [place] [address]- 7899 Aug, [facility] [place] [facility] [address] [id number] [place] [address]- 4734 Aug, [facility] [place] [facility] [address] [id number] [place] [address]- 2156 Aug, [facility] [place] [facility] [address] [id number] [place] [address]- 1837 Aug, [facility] [place] [facility] [address] [id number] [place] [address]- 2836 Aug, [facility] [place] [facility] [address] [id number] [place] [address]- 9589 29 Jul, 2014 [facility] [place] [facility] [address] [id number] [place] [address]- 7800 29 Jul, 2014 [facility] [place] [facility] [address] [id number] [place] [address]- 6437 15 Jul, 2014 [facility] [place] [facility] [address] [id number] [place] [address]- 1466 15 Jul, 2014 [facility] [place] [facility] [address] [id number] [place] [address]- 8498 08 Jul, 2014 [facility] [place] [facility] [address] [id number] [place] [address]- 3485 Jul, [facility] [place] [facility] [address] [id number] [place] [address]- 3396 Jun, [facility] [place] [facility] [address] [id number] [place] [address]- 2479 Jun, [facility] [place] [facility] [address] [id number] [place] [address]- 6252 Jun, [facility] [place] [facility] [address] [id number], [place] [address]- 3627 Jun, [facility] [place] [facility] [address] [id number], [place] [address]- 8477 Jun, [facility] [place] [facility] [address] [id number] [place] [address]- 7026 Jun, [facility] [place] [facility] [address] [id number] [place] [address]- 6462 Jun, [facility] [place] [facility] [address] [id number] [place] [address]- 4303 May, [facility] [place] [facility] [address] [id number] [place] [address]- 1791 May, 2013 [facility] [place] [facility] [address] [id number] [place] [address]- 8861 May, 2013 [facility] [place] [facility] [address] [id number] [place] [address]- 2911 May, 2013 [facility] [place] [facility] [address] [id number] [place] [address]- 0956 May, 2013 [facility] [place] [facility] [address] [id number] [place] [address]- 4038 May, 2013 [facility] [place] [facility] [address] [id number] [place] [address]- 3812 May, [facility] [place] [facility] [address] [id number] [place] [address]- 0389 May, 2013 [facility] [place] [facility] [address] [id number] [place] [address]- 2794 May, 2013 [facility] [place] [facility] [address] [id number] [place] [address]- 2903 May, [facility] [place] [facility] [address] [id number] [place] [address]- 0459 May, [facility] [place] [facility] [address] [id number] [place] [address]- 9670 May, [facility] [place] [facility] [address] [id number] [place] [address]- 7538 Apr, [facility] [place] [facility] [address] [id number] [place] [address]- 0669 Apr, [facility] [place] [facility] [address] [id number] [place] [address]- 8221 Apr, [facility] [place] [facility] [address] [id number] [place] [address]- 6157 Apr, [facility] [place] [facility] [address] [id number] [place] [address]- 0401 Apr, [facility] [place] [facility] [address] [id number] [place] [address]- 8002 Apr, [facility] [place] [facility] [address] [id number] [place] [address]- 0519 Apr, [facility] [place] [facility] [address] [id number] [place] [address]- 4493 Apr, [facility] [place] [facility] [address] [id number] [place] [address]- 6215 Apr, [facility] [place] [facility] [address] [id number] [place] [address]- 9723 Apr, [facility] [place] [facility] [address] [id number] [place] [address]- 7397 March, [facility] [place] [facility] [address] [id number] [place] [address]- 9690 March, [facility] [place] [facility] [address] [id number] [place] [address]- 1275 March, [facility] [place] [facility] [address] [id number] [place] [address]- 7413 March, [facility] [place] [facility] [address] [id number] [place] [address]- 6017 March, [facility] [place] [facility] [address] [id number] [place] [address]- 5032 March, [facility] [place] [facility] [address] [id number] [place] [address]- 4518 Feb, [facility] [place] [facility] [address] [id number] [place] [address]- 4496 Feb, [facility] [place] [facility] [address] [id number] [place] [address]- 7146 Feb, [facility] [place] [facility] [address] [id number] [place] [address]- 6949 Feb, [facility] [place] [facility] [address] [id number] [place] [address]- 6756 Feb, [facility] [place] [facility] [address] [id number] [place] [address]- 0334 Feb, [facility] [place] [facility] [address] [id number] [place] [address]- 1984 Feb, [facility] [place] [facility] [address] [id number] [place] [address]- 5932 Feb, [facility] [place] [facility] [address] [id number] [place] [address]- 4871 Feb, [facility] [place] [facility] [address] [id number] [place] [address]- 8329 Feb, [facility] [place] [facility] [address] [id number] [place] [address]- 4113 Jan, [facility] [place] [facility] [address] [id number] [place] [address]- 6641 Jan, [facility] [place] [facility] [address] [id number] [place] [address]- 0056 Jan, [facility] [place] [facility] [address] [id number] [place] [address]- 3324 Jan, [facility] [place] [facility] [address] [id number] [place] [address]- 7488 Jan, [facility] [place] [facility] [address] [id number] [place] [address]- 8096 Jan, [facility] [place] [facility] [address] [id number] [place] [address]- 2503 Jan, [facility] [place] [facility] [address] [id number] [place] 1117 Jan, [facility] [place] [facility] [address] [id number] [place]97 Dec, [facility] [place] [facility] [address] [id number] [place] [address]- 4610 Dec, [facility] [place] [facility] [address] [id number] [place] [address]- 2195 Dec, [facility] [place] [facility] [address] [id number] [place] [address]- 4879 Dec, [facility] [place] [facility] [address] [id number] [place] [address]- 7176 Dec, [facility] [place] [facility] [address] [id number] [place] [address]- 8596 Dec, [facility] [place] [facility] [address] [id number] [place] [address]- 6097 Dec, [facility] [place] [facility] [address] [id number] [place] [address]- 4081 Dec, [facility] [place] [facility] [address] [id number] [place] [address]- 4814 Nov, [facility] [place] [facility] [address] [id number] [place] [address]- 3718 Nov, [facility] [place] [facility] [address] [id number] [place] [address]- 4461 Nov, [facility] [place] [facility] [address] [id number] [place] [address]- 2573 Nov, [facility] [place] [facility] [address] [id number] [place] [address]- 9368 Nov, [facility] [place] [facility] [address] [id number] [place] [address]- 8544 Nov, [facility] [place] [facility] [address] [id number] [place] [address]- 6637 Nov, [facility] [place] [facility] [address] [id number] [place] [address]- 3319 Nov, [facility] [place] [facility] [address] [id number] [place] [address]- 0798 Nov, [facility] [place] [facility] [address] [id number], [place] [address]- 1186 Nov, [facility] [address] [id number] [place] [address]- 6951 Nov, [facility] [place] [facility] [address] [id number] [place] [address]- 3253 Oct, [facility] [place] [facility] [address] [facility] [id number] [place] [address]- 8920 Oct, [facility] [place] [facility] [address] [id number], [place] [address] Oct, [facility] [place] [facility] [address] [id number] [place] [address] Oct, [facility] [place] [facility] [address] [id number], [place] [address] Sep, [facility] [place] [facility] [address] [id number], [place] [address] Sep, [facility] [place] [facility] [address] [id number], [place] [address] Sep, [facility] [place] [facility] [address] [id number], [place] [address] Sep, [facility] [place] [facility] [address] [id number], [place] [address] Aug, [facility] [place] [facility] [address] [id number], [place] [address] Aug, [facility] [place] [facility] [address] [id number], [place] [address] Aug, [facility] [place] [facility] [address] [id number], [place] [address] Aug, [facility] [place] [facility] [address] [id number], [place] [address] Aug, [facility] [place] [facility] [address] [id number], [place] [address] Aug, [facility] [place] [facility] [address] [id number] [place] [address] 04 Aug, 2013 [facility] [address] [id number] [place] [address] Aug, [facility] [address] [id number] [place] [address]43 28 Jul, 2012 [facility] [address] [id number] [place] [address] 2544 27 Jul, 2012 [facility] [address] [id number] [place] [address] 2548 26 Jul, 2012 [facility] [address] [id number] [place] [address] 24 Jul, 2012 [facility] [address] [id number] [place] [address] 24 Jul, 2012 [facility] [address] [id number] [place] [address] 23 Jul, 2012 [facility] [address] [id number] [place] [address] 19 Jul, 2012 [facility] [address] [id number] [place] [address] 18 Jul, 2012 [facility] [address] [id number] [place] [address]- [address] 17 Jul, 2012 [facility] [place] [facility] [address] [id number] [place] [address] 2544 16 Sep, 2012 [facility] [address] [id number] [place] [address] 254 13 Jul, 2012 [facility] [place] [facility] [address] [id number] [place] [address] 2548 13 Jul, 2012 [facility] [place] [facility] [address] [id number] [place] [address] 12 Sep, 2012 [facility] [place] [facility] [address] [id number] [place] [address] Jul, [facility] [address] [id number] [place] [address] Jul, [facility] [place] [facility] [address] [id number] [place] [address] 9516 Jun, [facility] [place] [facility] [address] [id number] [place] [address] 47[address] Jun, [facility] [place] [facility] [address] [id number] [place] [address] Jun, [facility] [place] [facility] [address] [id number] [place] [address] May, [facility] [place] [facility] [address] [id number] [place] [address]209 May, [facility] [place] [facility] [address] [id number] [place] [address] May, [facility] [place] [facility] [address] [id number] [place] [address] May, [facility] [place] [facility] [address] [id number] [place] [address] Apr, [facility] [place] [facility] [address] [id number] [place] [address] Apr, [facility] [place] [facility] [address] [id number] [place] [address] Apr, [facility] [place] [facility] [address] [id number], [place] [address] Apr, [facility] [place] [facility] [address] [id number] [place] [address] March, [facility] [place] [facility] [address] [id number] [place] [address] March, [facility] [place] [facility] [address] [id number] [place] [address] 288[address] March, [facility] [place] [facility] [address] [id number], [place] [address] 10 Feb, 2013 [facility] [address] [id number] [place] [address] Feb, [facility] [place] [facility] [address] [facility] [id number] [place] [address] Jan, [facility] [address] [facility] [id number] [place] [address] Jan, [facility] [place] [facility] [address] [id number] [place] [address] Jan, [facility] [address] [id number] [place] [address] Jan, [facility] [place] [facility] [address] [facility] [id number] [place] [address] Jan, [facility] [address] [id number] [place] [address] Dec, [facility] [place] [facility] [address] [facility] [id number] [place] [address] Dec, [facility] [address] [id number] [place] [address]- [address] Dec, [facility] [address] [id number] [place] [address]- [address] Dec, [facility] [place] [facility] [id number] [place] [address] 18 Dec, 2012 [facility] [place] [facility] [address] [facility] [id number], [place] [address] 06 Dec, 2012 [facility] [place] [facility] [address] [facility] [id number] [place] [address] 04 Dec, 2012 [facility] [place] [facility] [address] [facility] [id number] [place] [address] Dec, [facility] [place] [facility] [address] [id number] [place] [address] Nov, [facility] [address] [id number] [place] [address] Nov, [facility] [place] [facility] [address] [id number] [place] [address] 9346 Nov, [facility] [place] [facility] [address] [id number] [place] [address] 6676 Nov, [facility] [place] [facility] [address] [id number] [place] [address] Nov, [facility] [address] [id number] [place] [address] 8090 Nov, [facility] [place] [facility] [address] [id number] [place] [address] 0606 Nov, [facility] [address] [id number] [place] [address] 1178 Oct, [facility] [address] [id number] [place] [address] 1899 Oct, [facility] [place] [facility] [address] [id number] [place] [address] 7[address] Oct, [facility] [address] [id number] [place] [address] 2658 Oct, [facility] [place] [facility] [address] [id number] [place] [address] 3523 Oct, [facility] [place] [facility] [address] [id number], [place] [address] Oct, [facility] [place] [facility] [address] [id number] [place] [address] 1110 Oct, [facility] [place] [facility] [address] [id number] [place] [address]- 0836 Oct, [facility] [place] [facility] [address] [id number], [place] [address] Sep, [facility] [place] [facility] [address] [id number], [place] [address] Sep, [facility] [place] [facility] [address] [id number] [place] [address] 4029 Sep, [facility] [place] [facility] [address] [id number] [place] [address] 4428 Sep, [facility] [place] [facility] [address] [facility] [id number] [place] [address] 1889 Sep, [facility] [place] [facility] [address] [id number] [place] [address] 0634 Sep, [facility] [place] [facility] [address] [id number] [place] [address]- 9552 Sep, [facility] [place] [facility] [address] [id number] [place] [address]- 7959 Sep, [facility] [place] [facility] [address] [id number] [place] [address] Sep, [facility] [place] [facility] [address] [id number] [place] [address]- 0963 Sep, [facility] [place] [facility] [address] [facility] [id number] [place] [address] 6499 Sep, [facility] [place] [facility] [address] [facility] [id number] [place] [address]- 5443 Sep, [facility] [place] [facility] [address] [facility] [id number], [place] [address] 8798 Sep, [facility] [place] [facility] [address] [id number], [place] [address] 97[address] Sep, [facility] [place] [facility] [address] [id number] [place] [address]- 0329 Sep, [facility] [place] [facility] [address] [facility] [id number] [place] [address]- 9825 Sep, [facility] [place] [facility] [address] [facility] [id number] [place] [address]- 6615 Sep, [facility] [place] [facility] [address] [id number] [place] [address] 2998 02 Sep, 2012 [facility] [place] [facility] [address] [id number] [place] [address]- 7780 02 Sep, 2012 [facility] [place] [facility] [address] [id number] [place] [address] 3844 Sep, [facility] [place] [facility] [address] [id number] [place] [address]- 0095 Aug, [facility] [place] [facility] [address] [id number] [place] [address]- 5236 31 Aug, 2012 [facility] [place] [facility] [address] [id number] [place] [address]- 2794 29 Aug, 2012 [facility] [place] [facility] [address] [id number] [place] [address]- 1539 Aug, [facility] [place] [facility] [address] [id number] [place] [address] 8293 Aug, [facility] [place] [facility] [address] [id number] [place] [address]- 7178 Aug, [facility] [place] [facility] [address] [id number] [place] [address] 2293 18 Aug, 2012 [facility] [place] [facility] [address] [facility] [id number] [place] [address]- 3537 17 Aug, 2012 [facility] [place] [facility] [address] [id number] [place] [address]- 6294 16 Aug, 2012 [facility] [place] [facility] [address] [id number] [place] [address]- 7830 16 Aug, 2012 [facility] [place] [facility] [address] [id number] [place] [address]- 3102 15 Aug, 2012 [facility] [place] [facility] [address] [facility] [id number] [place] [address]- 1670 09 Aug, 2012 [facility] [place] [facility] [address] [id number] [place] [address] Aug, [facility] [place] [facility] [address] [id number] [place] [address]- 6584 Aug, [facility] [place] [facility] [address] [id number] [place] [address]- 5457 Aug, [facility] [place] [facility] [address] [id number] [place] [address]- 4536 14 Jul, 2012 [facility] [place] [facility] [address] [id number] [place] [address]- 5396 Jul, [facility] [place] [facility] [address] [id number] [place] [address]- 0788 Jun, [facility] [place] [facility] [address] [id number] [place] [address]- 1512 Jun, [facility] [place] [facility] [address] [id number] [place] [address]- 2706 May, [facility] [place] [facility] [address] [id number] [place] [address]- 9734 May, [facility] [place] [facility] [address] [id number] [place] [address]- 8465 May, [facility] [place] [facility] [address] [id number] [place] [address]- 6557 May, [facility] [place] [facility] [address] [id number] [place] [address]- 5158 May, [facility] [place] [facility] [address] [id number], [place] [address] 1061 May, [facility] [place] [facility] [address] [id number] [place] [address] 5433 Apr, [facility] [place] [facility] [address] [id number] [place] [address]- 5064 Apr, [facility] [place] [facility] [address] [id number] [place] [address]- 7419 March, [facility] [place] [facility] [address] [id number] [place] [address]- 4879 March, [facility] [address] [id number] [place] [address]- 4796 March, [facility] [address] [id number] [place] [address]- 4456 March, [facility] [address] [id number] [place] [address]- 1846 March, [facility] [address] [id number] [place] [address]- 9736 March, [facility] [address] [id number] [place] [address]- 7313 Feb, [facility] [address] [id number] [place] [address]- 2794 Feb, [facility] [address] [id number] [place] [address]- 2284 Feb, [facility] [address] [id number] [place] [address]- 5348 Feb, [facility] [address] [id number] [place] [address]- 4626 Feb, [facility] [address] [id number] [place] [address]- 0221 Feb, [facility] [address] [id number] [place] [address]- 3678 Feb, [facility] [place] [facility] [address] [id number] [place] [address]- 3220 Feb, [facility] [place] [facility] [address] [id number] [place] [address]- 5253 04 Feb, 2012 [facility] [place] [facility] [address] [id number] [place] [address]- 5705 30 Jan, 2012 [facility] [place] [facility] [address] [id number] [place] [address]- 5815 Jan, [facility] [address] [id number] [place] [address]- 6830 26 Jan, 2012 [facility] [place] [facility] [address] [id number] [place] [address]- 5834 22 Jan, 2012 [facility] [place] [facility] [address] [id number] [place] [address]- 0014 21 Jan, 2012 [facility] [place] [facility] [address] [id number] [place] [address]- 9774 20 Jan, 2012 [facility] [place] [facility] [address] [id number] [place] [address]- 1639 14 Jan, 2012 [facility] [place] [facility] [address] [id number] [place] [address]- 5709 09 Jan, 2012 [facility] [place] [facility] [address] [id number] [place] [address]- 6243 09 Jan, 2012 [facility] [place] [facility] [address] [id number] [place] [address]- 1170 08 Jan, 2012 [facility] [place] [facility] [address] [id number] [place] [address]- 0106 07 Jan, 2012 [facility] [place] [facility] [address] [id number] [place] [address]- 2938 06 Jan, 2012 [facility] [place] [facility] [address] [id number] [place] [address]- 3500 Jan, [facility] [place] [facility] [address] [id number] [place] [address]- 6887 Jan, [facility] [place] [facility] [address] [id number] [place] [address]- 1506 Dec, [facility] [place] [facility] [address] [id number] [place] [address]- 5764 27 Dec, 2011 [facility] [place] [facility] [address] [id number] [place] [address]874 Dec, [facility] [place] [facility] [address] [id number] [place] [address]- 6345 23 Dec, 2011 [facility] [address] [id number] [place] [address]- 3536 16 Dec, 2011 [facility] [place] [facility] [address] [id number] [place] [address] 2546 08 Dec, 2011 [facility] [place] [facility] [address] [id number] [place] [address]- 6956 Dec, [facility] [place] [facility] [address] [id number] [place] [address]- 6236 Dec, [facility] [place] [facility] [address] [id number] [place] [address]- 2676 Dec, [facility] [place] [facility] [address] [id number] [place] [address]- 7534 Nov, [facility] [address] [id number] [place] [address]- 3134 Nov, [facility] [address] [id number] [place] [address]- 5723 Nov, [facility] [address] [id number] [place] [address]- 8100 Nov, [facility] [address] [facility] [id number] [place] [address]- 3042 Oct, [facility] [place] [facility] [address] [id number] [place] [address] 2546 Oct, [facility] [place] [facility] [address] [id number] [place] [address] 2546 Oct, [facility] [place] [facility] [address] [id number] [place] [address] 2546 Oct, [facility] [place] [facility] [address] [id number] [place] [address] 2546 13 Oct, 2011 [facility] [place] [facility] [address] [id number] [place] [address] 2545 12 Oct, 2011 [facility] [place] [facility] [address] [id number] [place] [address]- 6776 Oct, [facility] [place] [facility] [address] [id number] [place] [address]- 4472 Sep, [facility] [place] [facility] [address] [id number] [place] [address]- 1177 Sep, [facility] [place] [facility] [id number] [place] [address], [place] [address]- 8271 Sep, [facility] [place] [facility] [address] [id number] [place] [address]- 1517 Sep, [facility] [place] [facility] [address] [id number] [place] [address]- 8025 Sep, [facility] [place] [facility] [address] [id number] [place] [address]- 7912 Sep, [facility] [place] [facility] [address] [id number] [place] [address]- 9338 Sep, [facility] [place] [facility] [address] [id number] [place] [address]- 2443 Sep, [facility] [place] [facility] [address] [id number] [place] [address]- 1068 Sep, [facility] [place] [facility] [address] [id number] [place] [address]- 3266 Aug, [facility] [place] [facility] [address] [id number] [place] [address]- 5288 Aug, [facility] [place] [facility] [address] [id number] [place] [address]- 6777 Aug, [facility] [place] [facility] [address] [id number] [place] [address]- 0703 May, [facility] [place] [facility] [address] [id number] [place] [address]- 2637 Nov, [facility] [place] [facility] [address] [id number] [place] [address]- 2546 Oct, [facility] [place] [facility] [address] [id number] [place] [address]- 9166 Oct, [facility] [place] [facility] [address] [id number] [place] [address]- 6046 Oct, [facility] [place] [facility] [address] [id number] [place] [address]- 0326 Oct, [facility] [place] [facility] [address] [id number] [place] [address] 2546 Oct, [facility] [place] [facility] [address] [id number] [place] [address]- 1541 Sep, [facility] [place] [facility] [address] [id number] [place] [address]- 8888 Sep, [facility] [place] [facility] [address] [id number] [place] [address]- 0176 14 Jul, 2010 [facility] [place] [facility] [address] [id number] [place] [address]- 4906 Oct, [facility] [place] [facility] [address] [id number] [place] [address]- 6946 Oct, [facility] [place] [facility] [address] [id number] [place] [address]- 8153 Oct, [facility] [place] [facility] [address] [id number], [place] [address]- 0549 Oct, [facility] [place] [facility] [address] [id number], [place] [address]- 2065 Sep, [facility] [place] [facility] [address] [id number], [place] [address] 2546 Sep, [facility] [place] [facility] [address] [id number], [place] [address]- 254 Sep, [facility] [place] [facility] [address] [id number][place] [address]179 Sep, [facility] [place] [facility] [address] [facility] [id number] [place] [address]67 Sep, [facility] [address] [facility] [id number], [place] [address]- 7152 Jul, [facility] [address] [facility] [id number], [place] [address]- 5687 Apr, [facility] [address] [facility] [id number], [place] [address]- 0713 Dec, IMMUNIZATIONS No Known Immunizations SOCIAL HISTORY Never Assessed REASON FOR VISIT Requests return call PLAN OF CARE VITAL SIGNS MEDICATIONS Unknown Medications RESULTS No Results PROCEDURES No Known procedures INSTRUCTIONS MEDICATIONS ADMINISTERED No Known Medications MEDICAL (GENERAL) HISTORY Type Description Date Medical History hypertension Medical History hyperlipidemia Medical History diabetes type II Medical History COPD Medical History asthma Surgical History hysterectomy Surgical History arthritis surgery Hospitalization History surgeries
--- NOTE | 2018-05-14 15:13 | ED Lower Extremity ---
General Chief Complaint: Lower Extremity Stated Complaint: R ANKLE PAIN/COLD Source: patient, EMS Exam Limitations: no limitations (KRISTOFER QUINONEZ STUDENT) History of Present Illness Date Seen by Provider: May 14, 2018 Time Seen by Provider: 15:08 Initial Comments Patient is a 53-year-old female who was brought to emergency room by [facility] em[facility] but ambulated to the exam room for complaints of right ankle pain, she reports she was taking her dog outside when she became dizzy and fell injuring her right ankle. She reports this is her second time falling due to being dizzy that [facility] has been treating her for fluid in her inner ear that is causing her dizziness which she has been treating with nasal sprays. She also uses breathing treatments at home and is short of breath on arrival to the emergency room. Onset: just prior to arrival Pain/Injury Location: right ankle Method of Injury: fell (KRISTOFER QUINONEZ STUDENT) Allergies and Home Medications Allergies Coded Allergies: Penicillins (Verified Allergy, Mild, Hives, 03/05/16) Nrazsoe-Roa-Xas Reductase Inhibitor (Verified Allergy, Unknown, 03/05/16) amlodipine besylate (Verified Allergy, Unknown, 03/05/16) benazepril HCl (Verified Allergy, Unknown, 03/05/16) aspirin (Verified Adverse Reaction, Mild, Nausea, 02/19/15) codeine (Verified Adverse Reaction, Mild, Nausea, 02/19/15) tramadol (Verified Adverse Reaction, Mild, N/V, 07/16/15) Home Medications Albuterol Sulfate 1 Puff Puff, 2 PUFF IH Q4H PRN for WHEEZING, (Reported) 1 PUFF = 90 MCG Albuterol/Ipratropium 4 Gm Aero, 2 PUFF IH QID, (Reported) Aspirin 81 Mg Tablet.dr, 81 MG PO DAILY, (Reported) Atorvastatin Calcium 40 Mg Tablet, 40 MG PO HS, (Reported) Budesonide/Formoterol Fumarate 10.2 Gm Hfa.aer.ad, 2 PUFF IH BID, (Reported) Gabapentin 300 Mg Capsule, 600 MG PO TID, (Reported) take 2 (300mg) tabs Hydroxyzine HCl 10 Mg Tablet, 20 MG PO QID PRN for ANXIETY, (Reported) TAKES 2 (10 MG) TABLETS QID PRN Levothyroxine Sodium 50 Mcg Tablet, 50 MCG PO DAILY, (Reported) Loratadine 10 Mg Tablet, 10 MG PO DAILY, (Reported) Meloxicam 15 Mg Tablet, 15 MG PO DAILY, (Reported) Metformin HCl 500 Mg Tablet, 500 MG PO BID, (Reported) Metoprolol Succinate 25 Mg Tab.er.24h, 25 MG PO DAILY, (Reported) Nitroglycerin 0.4 Mg Tab.subl, 0.4 MG SL UD PRN for CHEST PAIN, (Reported) Oxybutynin Chloride 15 Mg Tab.er.24, 15 MG PO DAILY, (Reported) Pantoprazole Sodium 40 Mg Tablet.dr, 40 MG PO DAILY, (Reported) [Oxygen] , 2 L NA HS, (Reported) Patient Home Medication List Home Medication List Reviewed: Yes (KRISTOFER QUINONEZ) Constitutional: see HPI; No chills EENTM: see HPI; No ear pain, No blurred vision, No double vision Respiratory: see HPI, short of breath, wheezing Cardiovascular: see HPI; No chest pain Gastrointestinal: see HPI; No abdominal pain Genitourinary: see HPI; No dysuria, No frequency Musculoskeletal: joint pain (right ankle) Skin: see HPI; No change in color Psychiatric/Neurological: See HPI; Denies Anxiety (KRISTOFER QUINONEZ STUDENT) All Other Systems Reviewed Negative Unless Noted: Yes (KRISTOFER QUINONEZ) Past Tuzmxmj-Aqajwx-Vnywgr Hx Past Med/Social Hx: Reviewed Nursing Past Med/Soc Hx (KRISTOFER QUINONEZ) Patient Social History Type Used: Cigarettes Recent Hopitalizations: No (KRISTOFER QUINONEZ) Immunizations Up To Date Tetanus Booster (TDap): Less than 5yrs Date of Pneumonia Vaccine: Jul 10, 2011 Date of Influenza Vaccine: Oct 30, 2017 (KRISTOFER QUINONEZ STUDENT) Seasonal Allergies Seasonal Allergies: Yes (KRISTOFER QUINONEZ STUDENT) Past Medical History Surgeries: Yes (BROKEN HAND AND ANKLE) Coronary Stent, Hysterectomy, Orthopedic Respiratory: Yes (COPD, ASTHMA, O2 @ NOC) Asthma, Chronic Bronchitis, COPD, Emphysema Currently Using CPAP: No Currently Using BIPAP: No Cardiac: Yes (STENTS) Coronary Artery Disease, High Cholesterol, Hypertension Neurological: Yes Headaches /Migraines 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 Disorders: No 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 Disorders: Denies 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 Sexually Transmitted Disease: No HIV/AIDS: No Genitourinary: Yes UTI-Chronic Gastrointestinal: Yes Gastroesophageal Reflux Musculoskeletal: Yes Arthritis, Back Injury, Chronic Back Pain, Fractures Endocrine: Yes Diabetes, Non-Insulin dep Loss of Vision: Denies Hearing Impairment: Denies Cancer: No Psychosocial: Yes Anxiety, Depression Integumentary: No Blood Disorders: No Adverse Reaction/Blood Tranf: No (KRISTOFER QUINONEZ STUDENT) Family Medical History Arthritis Diabetes mellitus Hypertension No Pertinent Family Hx Patient reports she does not know (KRISTOFER QUINONEZ STUDENT) Physical Exam Vital Signs Vital Signs - First Documented 05/14/18 05/14/18 15:08 15:19 Temp 97.8 Pulse 70 Resp 18 B/P (MAP) 92/66 (75) Pulse Ox 92 O2 Delivery Room Air (THOMPSON QURESHI APRN) Vital Signs Capillary Refill : (KRISTOFER QUINONEZ STUDENT) General Appearance: WD/WN, no apparent distress HEENT: PERRL/EOMI, normal ENT inspection, TMs normal, pharynx normal Neck: non-tender, full range of motion, supple, normal inspection Cardiovascular: regular rate, rhythm, no edema, no gallop Respiratory: decreased breath sounds, wheezing, inspiration Gastrointestinal: normal bowel sounds, non tender, soft Back: normal inspection, no CVA tenderness, no vertebral tenderness Hips: bilateral hip non-tender Legs: bilateral leg non-tender Knees: bilateral knee non-tender Ankles: right ankle normal inspection, right ankle normal range of motion, right ankle pain, right ankle soft tissue tenderness Feet: bilateral foot non-tender Neurologic/Tendon: normal sensation, normal motor functions, normal tendon functions, responds to pain Neurologic/Psychiatric: alert, normal mood/affect, oriented x 3 Skin: normal color, warm/dry Lymphatic: no adenopathy (KRISTOFER QUINONEZ STUDENT) Progress/Results/Core Measures Results/Orders My Orders Orders - THOMPSON QURESHI APRN Chest Pa/Lat (2 View) (05/14/18 15:07) Ankle, Right, 3 Views (05/14/18 15:07) Albuterol/Ipra Inhalation Soln (Duoneb I (05/14/18 15:15) Svn Small Volume Nebulizer (05/14/18 15:07) Ketorolac Injection (Toradol Injection) (05/14/18 16:15) (THOMPSON QURESHI APRN) Medications Given in ED (THOMPSON QURESHI APRN) Vital Signs/I&O 05/14/18 05/14/18 05/14/18 15:08 15:19 16:29 Temp 97.8 Pulse 70 70 Resp 18 18 B/P (MAP) 92/66 (75) 106/72 (75) Pulse Ox 92 94 94 O2 Delivery Room Air Room Air (THOMPSON QURESHI APRN) Departure Communication (Admissions) 1551-. I have evaluated the patient with Kristofer jean APRN. I agree with plan for evaluation and treatment. She is receiving a DuoNeb treatment for some wheezing as well as a chest x-ray. She complains of ankle pain but she was ambulatory out of the ambulance into room 7 without the use of a stretcher or antalgic gait. There is no swelling erythema ecchymosis or abrasion to the ankle. She has fallen at home due to dizziness which was believed to be from inner ear disorder. However, her blood pressure is 92/67 and this could be the cause of her unsteadiness. She is only on Norvasc for hypertension control.we' ll have her reduce the Norvasc dose by half.. Subsequent blood pressure checks revealed blood pressure in the 110 systolic range. (THOMPSON QURESHI APRN) Impression Primary Impression: Strain of ankle, right Qualified Codes: S96.911A - Strain of unspecified muscle and tendon at ankle and foot level, right foot, initial encounter Additional Impression: COPD (chronic obstructive pulmonary disease) Qualified Codes: J44.9 - Chronic obstructive pulmonary disease, unspecified Disposition: 01 HOME, SELF-CARE Condition: Stable/Unchanged Departure-Patient Inst. Decision time for Depature: 16:16 (KRISTOFER QUINONEZ STUDENT) [place]errals: [facility] [place] Primary Care Physician Patient Instructions: Ankle Sprain (DC) Add. Discharge Instructions: Continue to use the Isaías bandage him that was provided in the emergency room as needed for support. Only take half of your Norvasc dose until you follow up with your doctor within 1 week. Return back to the emergency room for any worsening pain, numbness, tingling, or any other concerns as needed. All discharge instructions reviewed with patient and/or family. Voiced understanding. KRISTOFER QUINONEZ STUDENT May 14, 2018 15:13 THOMPSON QURESHI APRN May 14, 2018 15:51
[2018-05-14] MEDS ORDERED: RT-ALBUTEROL/IPRATROPIUM 3 ML (DUONEB) VIAL INH ONE (15:15)
--- OUTSIDE RECORDS SUMMARY | 2018-05-14 15:38 | XMS REPORT | Continuity of Care Document ---
Author Author Formerly [facility], [facility] Address Unknown Phone Unavailable Allergies Active [...] Drug Allergy N/A N/A 2014 Yes aspirin [id number] Drug Allergy Mild Nausea 02/19/2015 Yes codeine [id number] Drug Allergy Mild Nausea 02/19/2015 Yes tramadol [id number] Drug Allergy Mild N/V 07/16/2015 Yes Penicillins [id number] Drug Allergy Mild Hives 03/05/2016 Yes amlodipine besylate [id number] Drug Allergy Unknown N/A 03/05/2016 Yes benazepril HCl [id number] Drug Allergy Unknown N/A 03/05/2016 Yes Ybsykfz-Sol-Mkh Reductase Inhibitor [id number] Drug Allergy Unknown N/A 04/2016 Medications There [...] Type Ii - Uncomplicated, Uncontrolled 06/27/2008 MADMaxine LIQUOR MAKER, ETELVINA L 250.02 Diabetes Mellitus Type Ii - Uncomplicated, Uncontrolled 06/27/2008 MADL LIQUOR MAKER, ETELVINA L 250.02 Diabetes Mellitus Type Ii - Uncomplicated, Uncontrolled 06/27/2008 MADL LIQUOR MAKER, ETELVINA L 250.02 Diabetes Mellitus Type Ii - Uncomplicated, Uncontrolled 06/27/2008 SALGUERO DO LADONNA K 250.02 Diabetes Mellitus Type Ii - Uncomplicated, Uncontrolled 06/27/2008 NOEMY PRAKASH LADONNA K 250.02 Diabetes Mellitus Type Ii - Uncomplicated, Uncontrolled 06/27/2008 MADMaxine LIQUOR MAKER, ETELVINA L 250.02 Diabetes Mellitus Type Ii - Uncomplicated, Uncontrolled 06/27/2008 MADL LIQUOR MAKER, ETELVINA L 250.02 Diabetes Mellitus Type Ii - Uncomplicated, Uncontrolled 06/27/2008 MADL LIQUOR MAKER, ETELVINA L 250.02 Diabetes Mellitus Type Ii - Uncomplicated, Uncontrolled 06/27/2008 MADL LIQUOR MAKER, ETELVINA L 250.02 Diabetes Mellitus Type Ii - Uncomplicated, Uncontrolled 06/27/2008 MADL LIQUOR MAKER, ETELVINA L 250.02 Diabetes Mellitus Type Ii - Uncomplicated, Uncontrolled 06/27/2008 MADL LIQUOR MAKER, ETELVINA L 250.02 Diabetes Mellitus Type Ii - Uncomplicated, Uncontrolled 06/27/2008 MADL LIQUOR MAKER, ETELVINA L 250.02 Diabetes Mellitus Type Ii - Uncomplicated, Uncontrolled 06/27/2008 SALGUERO DO, LADONNA K 250.02 Diabetes Mellitus Type Ii - Uncomplicated, Uncontrolled 06/27/2008 SALGUERO DO, LADONNA K 250.02 Diabetes Mellitus Type Ii - Uncomplicated, Uncontrolled 06/27/2008 MADL LIQUOR MAKER, ETELVINA L 250.02 Diabetes Mellitus Type Ii - Uncomplicated, Uncontrolled 06/27/2008 SALGUERO DO, LADONNA K 250.02 Diabetes Mellitus Type Ii - Uncomplicated, Uncontrolled 06/27/2008 MADL LIQUOR MAKER, ETELVINA L 250.02 Diabetes Mellitus Type Ii [...] K 401.1 ESSENTIAL HYPERTENSION BENIGN 09/27/2008 MADL LIQUOR MAKER, ETELVINA L 250.00 DIABETES MELLITUS 09/27/2008 MADL LIQUOR MAKER, ETELVINA L 401.1 ESSENTIAL HYPERTENSION BENIGN 09/27/2008 MADL LIQUOR MAKER, ETELVINA L 250.00 DIABETES MELLITUS 09/27/2008 MADL LIQUOR MAKER, ETELVINA L 401.1 ESSENTIAL HYPERTENSION BENIGN 09/27/2008 MADL LIQUOR MAKER, ETELVINA L 250.00 DIABETES MELLITUS 09/27/2008 MADL LIQUOR MAKER, ETELVINA L 401.1 ESSENTIAL HYPERTENSION BENIGN 09/27/2008 SALGUERO DO, LADONNA K 250.00 DIABETES MELLITUS 09/27/2008 SALGUERO DO, LADONNA K 401.1 ESSENTIAL HYPERTENSION BENIGN 09/27/2008 SALGUERO DO, LADONNA K 250.00 DIABETES MELLITUS 09/27/2008 SALGUERO DO, LADONNA K 401.1 ESSENTIAL HYPERTENSION BENIGN 09/27/2008 MADL LIQUOR MAKER, ETELVINA L 250.00 DIABETES MELLITUS 09/27/2008 MADL LIQUOR MAKER, ETELVINA L 401.1 ESSENTIAL HYPERTENSION BENIGN 09/27/2008 MADL LIQUOR MAKER, ETELVINA L 250.00 DIABETES MELLITUS 09/27/2008 MADL LIQUOR MAKER, ETELVINA L 401.1 ESSENTIAL HYPERTENSION BENIGN 09/27/2008 MADL LIQUOR MAKER, ETELVINA L 250.00 DIABETES MELLITUS 09/27/2008 MADL LIQUOR MAKER, ETELVINA L 401.1 ESSENTIAL HYPERTENSION BENIGN 09/27/2008 MADL LIQUOR MAKER, ETELVINA L 250.00 DIABETES MELLITUS 09/27/2008 MADL LIQUOR MAKER, ETELVINA L 401.1 ESSENTIAL HYPERTENSION BENIGN 09/27/2008 MADL LIQUOR MAKER, ETELVINA L 250.00 DIABETES MELLITUS 09/27/2008 MADL LIQUOR MAKER, ETELVINA L 401.1 ESSENTIAL HYPERTENSION BENIGN 09/27/2008 MADL LIQUOR MAKER, ETELVINA L 250.00 DIABETES MELLITUS 09/27/2008 MADL LIQUOR MAKER, ETELVINA L 401.1 ESSENTIAL HYPERTENSION BENIGN 09/27/2008 MADL LIQUOR MAKER, ETELVINA L 250.00 DIABETES MELLITUS 09/27/2008 MADL LIQUOR MAKER, ETELVINA L 401.1 ESSENTIAL HYPERTENSION BENIGN 09/27/2008 SALGUERO DO, LADONNA K 250.00 DIABETES MELLITUS 09/27/2008 SALGUERO DO, LADONNA K 401.1 ESSENTIAL HYPERTENSION BENIGN 09/27/2008 SALGUERO DO, LADONNA K 250.00 DIABETES MELLITUS 09/27/2008 SALGUERO DO, LADONNA K 401.1 ESSENTIAL HYPERTENSION BENIGN 09/27/2008 MADL LIQUOR MAKER, ETELVINA L 250.00 DIABETES MELLITUS 09/27/2008 MADL LIQUOR MAKER, ETELVINA L 401.1 ESSENTIAL HYPERTENSION BENIGN 09/27/2008 SALGUERO DO, LADONNA K 250.00 DIABETES MELLITUS 09/27/2008 TERE SALGUERO DOA K 401.1 ESSENTIAL HYPERTENSION BENIGN 09/27/2008 MADL LIQUOR MAKER, ETELVINA L 250.00 DIABETES MELLITUS 09/27/2008 MADL LIQUOR MAKER, ETELVINA L 401.1 ESSENTIAL HYPERTENSION BENIGN 11/01/2008 [...] In Joint Involving Lower Leg 11/01/2008 MADL LIQUOR MAKER, ETELVINA L 719.46 Pain In Joint Involving Lower Leg 11/01/2008 MADL LIQUOR MAKER, ETELVINA L 719.46 Pain In Joint Involving Lower Leg 11/01/2008 MADL LIQUOR MAKER, ETELVINA L 719.46 Pain In Joint Involving Lower Leg 11/01/2008 NOEMY DOLADONNA K 719.46 Pain In Joint Involving Lower Leg 11/01/2008 LADONNA SALGUERO DO K 719.46 Pain In Joint Involving Lower Leg 11/01/2008 MADL LIQUOR MAKER, ETELVINA L 719.46 Pain In Joint Involving Lower Leg 11/01/2008 MADL LIQUOR MAKER, ETELVINA L 719.46 Pain In Joint Involving Lower Leg 11/01/2008 MADL LIQUOR MAKER, ETELVINA L 719.46 Pain In Joint Involving Lower Leg 11/01/2008 MADL LIQUOR MAKER, ETELVINA L 719.46 Pain In Joint Involving Lower Leg 11/01/2008 MADL LIQUOR MAKER, ETELVINA L 719.46 Pain In Joint Involving Lower Leg 11/01/2008 MADL LIQUOR MAKER, ETELVINA L 719.46 Pain In Joint Involving Lower Leg 11/01/2008 MADL LIQUOR MAKER, ETELVINA L 719.46 Pain In Joint Involving Lower Leg 11/01/2008 NOEMY DOLADONNA K 719.46 Pain In Joint Involving Lower Leg 11/01/2008 LADONNA SALGUERO DO K 719.46 Pain In Joint Involving Lower Leg 11/01/2008 MADL LIQUOR MAKER, ETELVINA L 719.46 Pain In Joint Involving Lower Leg 11/01/2008 NOEMY DOLADONNA K 719.46 Pain In Joint Involving Lower Leg 11/01/2008 MADL LIQUOR MAKER, ETELVINA L 719.46 Pain In Joint Involving [...] BOSS MD 728.85 Spasm Of Muscle 12/12/2008 LDAONNA SALGUERO DO K 496 CHRONIC OBSTRUCTIVE PULMONARY [...] K 728.85 Spasm Of Muscle 12/12/2008 MADL LIQUOR MAKER, ETELVINA L 496 CHRONIC OBSTRUCTIVE PULMONARY DISEASE 12/12/2008 MADL LIQUOR MAKER, ETELVINA L 728.85 Spasm Of Muscle 12/12/2008 MADL LIQUOR MAKER, ETELVINA L 496 CHRONIC OBSTRUCTIVE PULMONARY DISEASE 12/12/2008 MADL LIQUOR MAKER, ETELVINA L 728.85 Spasm Of Muscle 12/12/2008 MADL LIQUOR MAKER, ETELVINA L 496 CHRONIC OBSTRUCTIVE PULMONARY DISEASE 12/12/2008 MADL LIQUOR MAKER, ETELVINA L 728.85 Spasm Of Muscle 12/12/2008 SALGUERO DO, LADONNA K 496 CHRONIC OBSTRUCTIVE PULMONARY DISEASE 12/12/2008 SALGUERO DO, LADONNA K 728.85 Spasm Of Muscle 12/12/2008 SALGUERO DO, LADONNA K 496 CHRONIC OBSTRUCTIVE PULMONARY DISEASE 12/12/2008 SALGUERO DO, LADONNA K 728.85 Spasm Of Muscle 12/12/2008 MADL LIQUOR MAKER, ETELVINA L 496 CHRONIC OBSTRUCTIVE PULMONARY DISEASE 12/12/2008 MADL LIQUOR MAKER, ETELVINA L 728.85 Spasm Of Muscle 12/12/2008 MADL LIQUOR MAKER, ETELVINA L 496 CHRONIC OBSTRUCTIVE PULMONARY DISEASE 12/12/2008 MADL LIQUOR MAKER, ETELVINA L 728.85 Spasm Of Muscle 12/12/2008 MADL LIQUOR MAKER, ETELVINA L 496 CHRONIC OBSTRUCTIVE PULMONARY DISEASE 12/12/2008 MADL LIQUOR MAKER, ETELVINA L 728.85 Spasm Of Muscle 12/12/2008 MADL LIQUOR MAKER, ETELVINA L 496 CHRONIC OBSTRUCTIVE PULMONARY DISEASE 12/12/2008 MADL LIQUOR MAKER, ETELVINA L 728.85 Spasm Of Muscle 12/12/2008 MADL LIQUOR MAKER, ETELVINA L 496 CHRONIC OBSTRUCTIVE PULMONARY DISEASE 12/12/2008 MADL LIQUOR MAKER, ETELVINA L 728.85 Spasm Of Muscle 12/12/2008 MADL LIQUOR MAKER, ETELVINA L 496 CHRONIC OBSTRUCTIVE PULMONARY DISEASE 12/12/2008 MADL LIQUOR MAKER, ETELVINA L 728.85 Spasm Of Muscle 12/12/2008 MADL LIQUOR MAKER, ETELVINA L 496 CHRONIC OBSTRUCTIVE PULMONARY DISEASE 12/12/2008 MADL LIQUOR MAKER, ETELVINA L 728.85 Spasm Of Muscle 12/12/2008 SALGUERO DO, LADONNA K 496 CHRONIC OBSTRUCTIVE PULMONARY DISEASE 12/12/2008 SALGUERO DO, LADONNA K 728.85 Spasm Of Muscle 12/12/2008 SALGUERO DO, LADONNA K 496 CHRONIC OBSTRUCTIVE PULMONARY DISEASE 12/12/2008 SALGUERO DO, LADONNA K 728.85 Spasm Of Muscle 12/12/2008 MADL LIQUOR MAKER, ETELVINA L 496 CHRONIC OBSTRUCTIVE PULMONARY DISEASE 12/12/2008 MADL LIQUOR MAKER, ETELVINA L 728.85 Spasm Of Muscle 12/12/2008 SALGUERO DO, LADONNA K 496 CHRONIC OBSTRUCTIVE PULMONARY DISEASE 12/12/2008 SALGUERO DO, LADONNA K 728.85 Spasm Of Muscle 12/12/2008 MADL LIQUOR MAKER, ETELVINA L 496 CHRONIC OBSTRUCTIVE PULMONARY DISEASE 12/12/2008 MADL LIQUOR MAKER, ETELVINA L 728.85 Spasm Of Muscle 01/11/2009 [...] 786.50 Chest Pain Or Discomfort 01/11/2009 MADL LIQUOR MAKER, ETELVINA L 786.50 Chest Pain Or Discomfort 01/11/2009 MADL LIQUOR MAKER, ETELVINA L 786.50 Chest Pain Or Discomfort 01/11/2009 MADL LIQUOR MAKER, ETELVINA L 786.50 Chest Pain Or Discomfort 01/11/2009 SALGUERO DO, LADONNA K 786.50 Chest Pain Or Discomfort 01/11/2009 SALGUERO DO, LADONNA K 786.50 Chest Pain Or Discomfort 01/11/2009 MADL LIQUOR MAKER, ETELVINA L 786.50 Chest Pain Or Discomfort 01/11/2009 MADL LIQUOR MAKER, ETELVINA L 786.50 Chest Pain Or Discomfort 01/11/2009 MADL LIQUOR MAKER, ETELVINA L 786.50 Chest Pain Or Discomfort 01/11/2009 MADL LIQUOR MAKER, ETELVINA L 786.50 Chest Pain Or Discomfort 01/11/2009 MADL LIQUOR MAKER, ETELVINA L 786.50 Chest Pain Or Discomfort 01/11/2009 MADL LIQUOR MAKER, ETELVINA L 786.50 Chest Pain Or Discomfort 01/11/2009 MADL LIQUOR MAKER, ETELVINA L 786.50 Chest Pain Or Discomfort 01/11/2009 SALGUERO DO, LADONNA K 786.50 Chest Pain Or Discomfort 01/11/2009 SALGUERO DO, LADONNA K 786.50 Chest Pain Or Discomfort 01/11/2009 MADL LIQUOR MAKER, ETELVINA L 786.50 Chest Pain Or Discomfort 01/11/2009 SALGUERO DO, LADONNA K 786.50 Chest Pain Or Discomfort 01/11/2009 MADL LIQUOR MAKER, ETELVINA L 786.50 Chest Pain Or Discomfort 02/20/2009 MORGAN LIQUOR MAKER, LAURIE S 709.9 Dermatology - Skin Condition 02/20/2009 709.9 Dermatology - Skin Condition 02/20/2009 MORGAN LIQUOR MAKER, LAURIE S 709.9 Dermatology - Skin Condition 02/20/2009 MORGAN LIQUOR MAKER, LAURIE S 709.9 Dermatology - Skin Condition [...] 709.9 Dermatology - Skin Condition 02/20/2009 MADL LIQUOR MAKER, ETELVINA L 709.9 Dermatology - Skin Condition 02/20/2009 MADL LIQUOR MAKER, ETELVINA L 709.9 Dermatology - Skin Condition 02/20/2009 MADL LIQUOR MAKER, ETELVINA L 709.9 Dermatology - Skin Condition 02/20/2009 SALGUERO DO, LADONNA K 709.9 Dermatology - Skin Condition 02/20/2009 SALGUERO DO, LADONNA K 709.9 Dermatology - Skin Condition 02/20/2009 MADL LIQUOR MAKER, ETELVINA L 709.9 Dermatology - Skin Condition 02/20/2009 MADL LIQUOR MAKER, ETELVINA L 709.9 Dermatology - Skin Condition 02/20/2009 MADL LIQUOR MAKER, ETELVINA L 709.9 Dermatology - Skin Condition 02/20/2009 MADL LIQUOR MAKER, ETELVINA L 709.9 Dermatology - Skin Condition 02/20/2009 MADL LIQUOR MAKER, ETELVINA L 709.9 Dermatology - Skin Condition 02/20/2009 MADL LIQUOR MAKER, ETELVINA L 709.9 Dermatology - Skin Condition 02/20/2009 MADL LIQUOR MAKER, ETELVINA L 709.9 Dermatology - Skin Condition 02/20/2009 SALGUERO DO, LADONNA K 709.9 Dermatology - Skin Condition 02/20/2009 SALGUERO DO, LADONNA K 709.9 Dermatology - Skin Condition 02/20/2009 MADL LIQUOR MAKER, ETELVINA L 709.9 Dermatology - Skin Condition 02/20/2009 SALGUERO DO, LADONNA K 709.9 Dermatology - Skin Condition 02/20/2009 MADL LIQUOR MAKER, ETELVINA L 709.9 Dermatology - Skin Condition [...] Disorders Of Function Of Stomach 04/05/2009 MADL LIQUOR MAKER, ETELVINA L 536.8 Dyspepsia And Other Specified Disorders Of Function Of Stomach 04/05/2009 MADL LIQUOR MAKER, ETELVINA L 536.8 Dyspepsia And Other Specified Disorders Of Function Of Stomach 04/05/2009 MADL LIQUOR MAKER, ETELVINA L 536.8 Dyspepsia And Other Specified Disorders Of Function Of Stomach 04/05/2009 SALGUERO DO, LADONNA K 536.8 Dyspepsia And Other Specified Disorders Of Function Of Stomach 04/05/2009 SALGUERO DO, LADONNA K 536.8 Dyspepsia And Other Specified Disorders Of Function Of Stomach 04/05/2009 MADL LIQUOR MAKER ETELVINA L 536.8 Dyspepsia And Other Specified Disorders Of Function Of Stomach 04/05/2009 MADL LIQUOR MAKER, ETELVINA L 536.8 Dyspepsia And Other Specified Disorders Of Function Of Stomach 04/05/2009 MADL LIQUOR MAKER, ETELVINA L 536.8 Dyspepsia And Other Specified Disorders Of Function Of Stomach 04/05/2009 MADL LIQUOR MAKER, ETELVINA L 536.8 Dyspepsia And Other Specified Disorders Of Function Of Stomach 04/05/2009 MADL LIQUOR MAKER, ETELVINA L 536.8 Dyspepsia And Other Specified Disorders Of Function Of Stomach 04/05/2009 MADL LIQUOR MAKER, ETELVINA L 536.8 Dyspepsia And Other Specified Disorders Of Function Of Stomach 04/05/2009 MADL LIQUOR MAKER, ETELVINA L 536.8 Dyspepsia And Other Specified Disorders Of Function Of Stomach 04/05/2009 SALGUERO DO, LADONNA K 536.8 Dyspepsia And Other Specified Disorders Of Function Of Stomach 04/05/2009 SALGUERO DO, LADONNA K 536.8 Dyspepsia And Other Specified Disorders Of Function Of Stomach 04/05/2009 MADL LIQUOR MAKER, ETELVINA L 536.8 Dyspepsia And Other Specified Disorders Of Function Of Stomach 04/05/2009 SALGUERO DO, LADONNA K 536.8 Dyspepsia And Other Specified Disorders Of Function Of Stomach 04/05/2009 MADL LIQUOR MAKER, ETELVINA L 536.8 Dyspepsia And Other Specified [...] DO, LADONNA K 787.02 Nausea 05/09/2009 MADL LIQUOR MAKER, ETELVINA L 327.52 Organic Sleep-related Leg Cramps 05/09/2009 MADL LIQUOR MAKER, ETELVINA L 787.02 Nausea 05/09/2009 MADL LIQUOR MAKER, ETELVINA L 327.52 Organic Sleep-related Leg Cramps 05/09/2009 MADL LIQUOR MAKER, ETELVINA L 787.02 Nausea 05/09/2009 MADL LIQUOR MAKER, ETELVINA L 327.52 Organic Sleep-related Leg Cramps 05/09/2009 MADL LIQUOR MAKER, ETELVINA L 787.02 Nausea 05/09/2009 SALGUERO DO, LADONNA K 327.52 Organic Sleep-related Leg Cramps 05/09/2009 SALGUERO DO, LADONNA K 787.02 Nausea 05/09/2009 SALGUERO DO, LADONNA K 327.52 Organic Sleep-related Leg Cramps 05/09/2009 SALGUERO DO, LADONNA K 787.02 Nausea 05/09/2009 MADL LIQUOR MAKER, ETELVINA L 327.52 Organic Sleep-related Leg Cramps 05/09/2009 MADL LIQUOR MAKER, ETELVINA L 787.02 Nausea 05/09/2009 MADL LIQUOR MAKER, ETELVINA L 327.52 Organic Sleep-related Leg Cramps 05/09/2009 MADL LIQUOR MAKER, ETELVINA L 787.02 Nausea 05/09/2009 MADL LIQUOR MAKER, ETELVINA L 327.52 Organic Sleep-related Leg Cramps 05/09/2009 MADL LIQUOR MAKER, ETELVINA L 787.02 Nausea 05/09/2009 MADL LIQUOR MAKER, ETELVINA L 327.52 Organic Sleep-related Leg Cramps 05/09/2009 MADL LIQUOR MAKER, ETELVINA L 787.02 Nausea 05/09/2009 MADL LIQUOR MAKER, ETELVINA L 327.52 Organic Sleep-related Leg Cramps 05/09/2009 MADL LIQUOR MAKER, ETELVINA L 787.02 Nausea 05/09/2009 MADL LIQUOR MAKER, ETELVINA L 327.52 Organic Sleep-related Leg Cramps 05/09/2009 MADL LIQUOR MAKER, ETELVINA L 787.02 Nausea 05/09/2009 MADL LIQUOR MAKER, ETELVINA L 327.52 Organic Sleep-related Leg Cramps 05/09/2009 MADL LIQUOR MAKER, ETELVINA L 787.02 Nausea 05/09/2009 SALGUERO DO, LADONNA K 327.52 Organic Sleep-related Leg Cramps 05/09/2009 SALGUERO DO, LADONNA K 787.02 Nausea 05/09/2009 SALGUERO DO, LADONNA K 327.52 Organic Sleep-related Leg Cramps 05/09/2009 SALGUERO DO, LADONNA K 787.02 Nausea 05/09/2009 MADL LIQUOR MAKER, ETELVINA L 327.52 Organic Sleep-related Leg Cramps 05/09/2009 MADL LIQUOR MAKER, ETELVINA L 787.02 Nausea 05/09/2009 SALGUERO DO, LADONNA K 327.52 Organic Sleep-related Leg Cramps 05/09/2009 SALGUERO DO, LADONNA K 787.02 Nausea 05/09/2009 MADL LIQUOR MAKER, ETELVINA L 327.52 Organic Sleep-related Leg Cramps 05/09/2009 MADL LIQUOR MAKER, ETELVINA L 787.02 Nausea 07/02/2009 LAURIE MORA [...] Infections Of Unspecified Site 07/02/2009 NOEMY PRAKASH LDAONNA K 780.4 Dizziness And Giddiness 07/02/2009 BYRON [...] K 780.4 Dizziness And Giddiness 07/02/2009 MADL LIQUOR MAKER, ETELVINA L 465.9 Acute Upper Respiratory Infections Of Unspecified Site 07/02/2009 MADL LIQUOR MAKER, ETELVINA L 780.4 Dizziness And Giddiness 07/02/2009 MADL LIQUOR MAKER, ETELVINA L 465.9 Acute Upper Respiratory Infections Of Unspecified Site 07/02/2009 MADL LIQUOR MAKER, ETELVINA L 780.4 Dizziness And Giddiness 07/02/2009 MADL LIQUOR MAKER, ETELVINA L 465.9 Acute Upper Respiratory Infections Of Unspecified Site 07/02/2009 MADL LIQUOR MAKER, ETELVINA L 780.4 Dizziness And Giddiness 07/02/2009 SALGUERO DO, LADONNA K 465.9 Acute Upper Respiratory Infections Of Unspecified Site 07/02/2009 SALGUERO DO, LADONNA K 780.4 Dizziness And Giddiness 07/02/2009 SALGUERO DO, LADONNA K 465.9 Acute Upper Respiratory Infections Of Unspecified Site 07/02/2009 SALGUERO DO, LADONNA K 780.4 Dizziness And Giddiness 07/02/2009 MADL LIQUOR MAKER, ETELVINA L 465.9 Acute Upper Respiratory Infections Of Unspecified Site 07/02/2009 MADL LIQUOR MAKER, ETELVINA L 780.4 Dizziness And Giddiness 07/02/2009 MADL LIQUOR MAKER, ETELVINA L 465.9 Acute Upper Respiratory Infections Of Unspecified Site 07/02/2009 MADL LIQUOR MAKER, ETELVINA L 780.4 Dizziness And Giddiness 07/02/2009 MADL LIQUOR MAKER, ETELVINA L 465.9 Acute Upper Respiratory Infections Of Unspecified Site 07/02/2009 MADL LIQUOR MAKER, ETELVINA L 780.4 Dizziness And Giddiness 07/02/2009 MADL LIQUOR MAKER, ETELVINA L 465.9 Acute Upper Respiratory Infections Of Unspecified Site 07/02/2009 MADL LIQUOR MAKER, ETELVINA L 780.4 Dizziness And Giddiness 07/02/2009 MADL LIQUOR MAKER, ETELVINA L 465.9 Acute Upper Respiratory Infections Of Unspecified Site 07/02/2009 MADL LIQUOR MAKER, ETELVINA L 780.4 Dizziness And Giddiness 07/02/2009 MADL LIQUOR MAKER, ETELVINA L 465.9 Acute Upper Respiratory Infections Of Unspecified Site 07/02/2009 MADL LIQUOR MAKER, ETELVINA L 780.4 Dizziness And Giddiness 07/02/2009 MADL LIQUOR MAKER, ETELVINA L 465.9 Acute Upper Respiratory Infections Of Unspecified Site 07/02/2009 MADL LIQUOR MAKER, ETELVINA L 780.4 Dizziness And Giddiness 07/02/2009 SALGUERO DO, LADONNA K 465.9 Acute Upper Respiratory Infections Of Unspecified Site 07/02/2009 SALGUERO DO, LADONNA K 780.4 Dizziness And Giddiness 07/02/2009 SALGUERO DO, LADONNA K 465.9 Acute Upper Respiratory Infections Of Unspecified Site 07/02/2009 SALGUERO DO, LADONNA K 780.4 Dizziness And Giddiness 07/02/2009 MADL LIQUOR MAKER, ETELVINA L 465.9 Acute Upper Respiratory Infections Of Unspecified Site 07/02/2009 MADL LIQUOR MAKER, ETELVINA L 780.4 Dizziness And Giddiness 07/02/2009 SALGUERO DO, LADONNA K 465.9 Acute Upper Respiratory Infections Of Unspecified Site 07/02/2009 SALGUERO DO, LADONNA K 780.4 Dizziness And Giddiness 07/02/2009 MADL LIQUOR MAKER, ETELVINA L 465.9 Acute Upper Respiratory Infections Of Unspecified Site 07/02/2009 MADL LIQUOR MAKER, ETELVINA L 780.4 Dizziness And Giddiness 08/10/2009 MORGAN LIQUOR MAKER, LAURIE S 780.52 INSOMNIA UNSPECIFIED 08/10/2009 MORGAN LIQUOR MAKER, LAURIE S 783.1 Abnormal Weight Gain 08/10/2009 780.52 Insomnia Unspecified 08/10/2009 783.1 Abnormal Weight Gain 08/10/2009 MORGAN LIQUOR MAKER, LAURIE S 780.52 Insomnia Unspecified 08/10/2009 MORGAN LIQUOR MAKER, LAURIE S 783.1 Abnormal Weight Gain 08/10/2009 MORGAN LIQUOR MAKER, LAURIE S 780.52 Insomnia Unspecified 08/10/2009 MORGAN LIQUOR MAKER, LAURIE S 783.1 Abnormal Weight Gain 08/10/2009 [...] K 783.1 Abnormal Weight Gain 08/10/2009 MADL LIQUOR MAKER, ETELVINA L 780.52 Insomnia Unspecified 08/10/2009 MADL LIQUOR MAKER, ETELVINA L 783.1 Abnormal Weight Gain 08/10/2009 MADL LIQUOR MAKER, ETELVINA L 780.52 Insomnia Unspecified 08/10/2009 MADL LIQUOR MAKER, ETELVINA L 783.1 Abnormal Weight Gain 08/10/2009 MADL LIQUOR MAKER, ETELVINA L 780.52 Insomnia Unspecified 08/10/2009 MADL LIQUOR MAKER, ETELVINA L 783.1 Abnormal Weight Gain 08/10/2009 SALGUERO DO, LADONNA K 780.52 Insomnia Unspecified 08/10/2009 SALGUERO DO, LADONNA K 783.1 Abnormal Weight Gain 08/10/2009 SALGUERO DO, LADONNA K 780.52 Insomnia Unspecified 08/10/2009 SALGUERO DO, LADONNA K 783.1 Abnormal Weight Gain 08/10/2009 MADL LIQUOR MAKER, ETELVINA L 780.52 Insomnia Unspecified 08/10/2009 MADL LIQUOR MAKER, ETELVINA L 783.1 Abnormal Weight Gain 08/10/2009 MADL LIQUOR MAKER, ETELVINA L 780.52 Insomnia Unspecified 08/10/2009 MADL LIQUOR MAKER, ETELVINA L 783.1 Abnormal Weight Gain 08/10/2009 MADL LIQUOR MAKER, ETELVINA L 780.52 Insomnia Unspecified 08/10/2009 MADL LIQUOR MAKER, ETELVINA L 783.1 Abnormal Weight Gain 08/10/2009 MADL LIQUOR MAKER, ETELVINA L 780.52 Insomnia Unspecified 08/10/2009 MADL LIQUOR MAKER, ETELVINA L 783.1 Abnormal Weight Gain 08/10/2009 MADL LIQUOR MAKER, ETELVINA L 780.52 Insomnia Unspecified 08/10/2009 MADL LIQUOR MAKER, ETELVINA L 783.1 Abnormal Weight Gain 08/10/2009 MADL LIQUOR MAKER, ETELVINA L 780.52 Insomnia Unspecified 08/10/2009 MADL LIQUOR MAKER, ETELVINA L 783.1 Abnormal Weight Gain 08/10/2009 MADL LIQUOR MAKER, ETELVINA L 780.52 Insomnia Unspecified 08/10/2009 MADL LIQUOR MAKER, ETELVINA L 783.1 Abnormal Weight Gain 08/10/2009 SALGUERO DO, LADONNA K 780.52 Insomnia Unspecified 08/10/2009 SALGUERO DO, LADONNA K 783.1 Abnormal Weight Gain 08/10/2009 SALGUERO DO, LADONNA K 780.52 Insomnia Unspecified 08/10/2009 SALGUERO DO, LADONNA K 783.1 Abnormal Weight Gain 08/10/2009 MADL LIQUOR MAKER, ETELVINA L 780.52 Insomnia Unspecified 08/10/2009 MADL LIQUOR MAKER, ETELVINA L 783.1 Abnormal Weight Gain 08/10/2009 SALGUERO DO, LADONNA K 780.52 Insomnia Unspecified 08/10/2009 SALGUERO DO, LADONNA K 783.1 Abnormal Weight Gain 08/10/2009 MADL LIQUOR MAKER, ETELVINA L 780.52 Insomnia Unspecified 08/10/2009 MADL LIQUOR MAKER, ETELVINA L 783.1 Abnormal Weight Gain 09/04/2009 LAURIE MOAR APRN S 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 09/04/2009 LAURIE MORA APRN S 780.79 Feelings Of Weakness 09/04/2009 LAURIE MORA APRN S 786.05 shortness of breath 09/04/2009 LAURIE MORA APRN S 786.2 Cough 09/04/2009 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 09/04/2009 780.79 Feelings Of Weakness 09/04/2009 786.05 Shortness Of Breath 09/04/2009 786.2 Cough 09/04/2009 MORGAN LIQUOR MAKERPALOMA BowserNDA S 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 09/04/2009 MORGAN LIQUOR MAKER, LAURIE S 780.79 Feelings Of Weakness 09/04/2009 MORGAN LIQUOR MAKER, LAURIE S 786.05 Shortness Of Breath 09/04/2009 MORGAN LIQUOR MAKER, LAURIE S 786.2 Cough 09/04/2009 MORGAN LIQUOR MAKER, LAURIE S 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 09/04/2009 MORGAN LIQUOR MAKER, LAURIE S 780.79 Feelings Of Weakness 09/04/2009 MORGAN LIQUOR MAKERPALOMA BowserNDA S 786.05 Shortness Of Breath 09/04/2009 [...] DO, LADONNA K 786.2 Cough 09/04/2009 MADL LIQUOR MAKER, ETELVINA L 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 09/04/2009 MADL LIQUOR MAKER, ETELVINA L 780.79 Feelings Of Weakness 09/04/2009 MADL LIQUOR MAKER, ETELVINA L 786.05 Shortness Of Breath 09/04/2009 MADL LIQUOR MAKER, ETELVINA L 786.2 Cough 09/04/2009 MADL LIQUOR MAKER, ETELVINA L 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 09/04/2009 MADL LIQUOR MAKER, ETELVINA L 780.79 Feelings Of Weakness 09/04/2009 MADL LIQUOR MAKER, ETELVINA L 786.05 Shortness Of Breath 09/04/2009 MADL LIQUOR MAKER, ETELVINA L 786.2 Cough 09/04/2009 MADL LIQUOR MAKER, ETELVINA L 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 09/04/2009 MADL LIQUOR MAKER, ETELVINA L 780.79 Feelings Of Weakness 09/04/2009 MADL LIQUOR MAKER, ETELVINA L 786.05 Shortness Of Breath 09/04/2009 MADL LIQUOR MAKER, ETELVINA L 786.2 Cough 09/04/2009 SALGUERO DO, [...] DO, LADONNA K 786.2 Cough 09/04/2009 MADL LIQUOR MAKER, ETELVINA L 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 09/04/2009 MADL LIQUOR MAKER, ETELVINA L 780.79 Feelings Of Weakness 09/04/2009 MADL LIQUOR MAKER, ETELVINA L 786.05 Shortness Of Breath 09/04/2009 MADL LIQUOR MAKER, ETELVINA L 786.2 Cough 09/04/2009 MADL LIQUOR MAKER, ETELVINA L 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 09/04/2009 MADL LIQUOR MAKER, ETELVINA L 780.79 Feelings Of Weakness 09/04/2009 MADL LIQUOR MAKER, ETELVNIA L 786.05 Shortness Of Breath 09/04/2009 MADL LIQUOR MAKER, ETELVINA L 786.2 Cough 09/04/2009 MADL LIQUOR MAKER, ETELVINA L 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 09/04/2009 MADL LIQUOR MAKER, ETELVINA L 780.79 Feelings Of Weakness 09/04/2009 MADL LIQUOR MAKER, ETELVINA L 786.05 Shortness Of Breath 09/04/2009 MADL LIQUOR MAKER, ETELVINA L 786.2 Cough 09/04/2009 MADL LIQUOR MAKER, ETELVINA L 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 09/04/2009 MADL LIQUOR MAKER, ETELVINA L 780.79 Feelings Of Weakness 09/04/2009 MADL LIQUOR MAKER, ETELVINA L 786.05 Shortness Of Breath 09/04/2009 MADL LIQUOR MAKER, ETELVINA L 786.2 Cough 09/04/2009 MADL LIQUOR MAKER, ETELVINA L 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 09/04/2009 MADL LIQUOR MAKER, ETELVINA L 780.79 Feelings Of Weakness 09/04/2009 MADL LIQUOR MAKER, ETELVINA L 786.05 Shortness Of Breath 09/04/2009 MADL LIQUOR MAKER, ETELVINA L 786.2 Cough 09/04/2009 MADL LIQUOR MAKER, ETELVINA L 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 09/04/2009 MADL LIQUOR MAKER, ETELVINA L 780.79 Feelings Of Weakness 09/04/2009 MADL LIQUOR MAKER, ETELVINA L 786.05 Shortness Of Breath 09/04/2009 MADL LIQUOR MAKER, ETELVINA L 786.2 Cough 09/04/2009 MADL LIQUOR MAKER, ETELVINA L 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 09/04/2009 MADL LIQUOR MAKER, ETELVINA L 780.79 Feelings Of Weakness 09/04/2009 MADL LIQUOR MAKER, ETELVINA L 786.05 Shortness Of Breath 09/04/2009 MADL LIQUOR MAKER, ETELVINA L 786.2 Cough 09/04/2009 SALGUERO DO, [...] DO, LADONNA K 786.2 Cough 09/04/2009 MADL LIQUOR MAKER, ETELVINA L 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 09/04/2009 MADL LIQUOR MAKER, ETELVINA L 780.79 Feelings Of Weakness 09/04/2009 MADL LIQUOR MAKER, ETELVINA L 786.05 Shortness Of Breath 09/04/2009 MADL LIQUOR MAKER, ETELVINA L 786.2 Cough 09/04/2009 SALGUERO DO, LADONNA K 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 09/04/2009 SALGUERO DO, LADONNA K 780.79 Feelings Of Weakness 09/04/2009 SALGUERO DO, LADONNA K 786.05 Shortness Of Breath 09/04/2009 SALGUERO DO, LADONNA K 786.2 Cough 09/04/2009 MADL LIQUOR MAKER, ETELVINA L 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 09/04/2009 MADL LIQUOR MAKER, ETELVINA L 780.79 Feelings Of Weakness 09/04/2009 MADL LIQUOR MAKER, ETELVINA L 786.05 Shortness Of Breath 09/04/2009 MADL LIQUOR MAKER, ETELVINA L 786.2 Cough 09/07/2009 MORGAN LIQUOR MAKER, LAURIE S 079.99 Viral Syndrome 09/07/2009 079.99 Viral Syndrome 09/07/2009 MORGAN LIQUOR MAKER, LAURIE S 079.99 Viral Syndrome 09/07/2009 MORGAN LIQUOR MAKER, LAURIE S 079.99 Viral Syndrome 09/07/2009 ROMELIA [...] PRAKASHA K 079.99 Viral Syndrome 09/07/2009 MADL LIQUOR MAKER, ETELVINA L 079.99 Viral Syndrome 09/07/2009 MADL LIQUOR MAKER, ETELVINA L 079.99 Viral Syndrome 09/07/2009 MADL LIQUOR MAKER, ETELVINA L 079.99 Viral Syndrome 09/07/2009 SALGUERO DO, LADONNA K 079.99 Viral Syndrome 09/07/2009 SALGUERO DO, LADONNA K 079.99 Viral Syndrome 09/07/2009 MADL LIQUOR MAKER, ETELVINA L 079.99 Viral Syndrome 09/07/2009 MADL LIQUOR MAKER, ETELVINA L 079.99 Viral Syndrome 09/07/2009 MADL LIQUOR MAKER, ETELVINA L 079.99 Viral Syndrome 09/07/2009 MADL LIQUOR MAKER, ETELVINA L 079.99 Viral Syndrome 09/07/2009 MADL LIQUOR MAKER, ETELVINA L 079.99 Viral Syndrome 09/07/2009 MADL LIQUOR MAKER, ETELVINA L 079.99 Viral Syndrome 09/07/2009 MADL LIQUOR MAKER, ETELVINA L 079.99 Viral Syndrome 09/07/2009 SALGUERO DO, LADONNA K 079.99 Viral Syndrome 09/07/2009 SALGUERO DO, LADONNA K 079.99 Viral Syndrome 09/07/2009 MADL LIQUOR MAKER, ETELVINA L 079.99 Viral Syndrome 09/07/2009 SALGUERO DO, LADONNA K 079.99 Viral Syndrome 09/07/2009 MADL LIQUOR MAKER, ETELVINA L 079.99 Viral Syndrome 10/12/2009 LAURIE [...] DO, LADONNA K 799.02 Hypoxemia 10/12/2009 MADL LIQUOR MAKER ETELVINA L 719.58 Stiffness Of Joint, Not Elsewhere Classified, Other Specified Sites 10/12/2009 MADL LIQUOR MAKER, ETELVINA L 799.02 Hypoxemia 10/12/2009 MADL LIQUOR MAKER, ETELVINA L 719.58 Stiffness Of Joint, Not Elsewhere Classified, Other Specified Sites 10/12/2009 MADL LIQUOR MAKER, ETELVINA L 799.02 Hypoxemia 10/12/2009 MADL LIQUOR MAKER, ETELVNIA L 719.58 Stiffness Of Joint, Not Elsewhere Classified, Other Specified Sites 10/12/2009 MADL LIQUOR MAKER, ETELVINA L 799.02 Hypoxemia 10/12/2009 SALGUERO DO, LADONNA K 719.58 Stiffness Of Joint, Not Elsewhere Classified, Other Specified Sites 10/12/2009 SALGUERO DO, LADONNA K 799.02 Hypoxemia 10/12/2009 SALGUERO DO, LADONNA K 719.58 Stiffness Of Joint, Not Elsewhere Classified, Other Specified Sites 10/12/2009 SALGUERO DO, LADONNA K 799.02 Hypoxemia 10/12/2009 MADL LIQUOR MAKER, ETELVINA L 719.58 Stiffness Of Joint, Not Elsewhere Classified, Other Specified Sites 10/12/2009 MADL LIQUOR MAKER, ETELVINA L 799.02 Hypoxemia 10/12/2009 MADL LIQUOR MAKER, ETELVINA L 719.58 Stiffness Of Joint, Not Elsewhere Classified, Other Specified Sites 10/12/2009 MADL LIQUOR MAKER, ETELVINA L 799.02 Hypoxemia 10/12/2009 MADL LIQUOR MAKER, ETELVINA L 719.58 Stiffness Of Joint, Not Elsewhere Classified, Other Specified Sites 10/12/2009 MADL LIQUOR MAKER, ETELVINA L 799.02 Hypoxemia 10/12/2009 MADL LIQUOR MAKER, ETELVINA L 719.58 Stiffness Of Joint, Not Elsewhere Classified, Other Specified Sites 10/12/2009 MADL LIQUOR MAKER, ETELVINA L 799.02 Hypoxemia 10/12/2009 MADL LIQUOR MAKER, ETELVINA L 719.58 Stiffness Of Joint, Not Elsewhere Classified, Other Specified Sites 10/12/2009 MADL LIQUOR MAKER, ETELVINA L 799.02 Hypoxemia 10/12/2009 MADL LIQUOR MAKER, ETELVINA L 719.58 Stiffness Of Joint, Not Elsewhere Classified, Other Specified Sites 10/12/2009 MADL LIQUOR MAKER, ETELVINA L 799.02 Hypoxemia 10/12/2009 MADL LIQUOR MAKER, ETELVINA L 719.58 Stiffness Of Joint, Not Elsewhere Classified, Other Specified Sites 10/12/2009 MADL LIQUOR MAKER, ETELVINA L 799.02 Hypoxemia 10/12/2009 SALGUERO DO, LADONNA K 719.58 Stiffness Of Joint, Not Elsewhere Classified, Other Specified Sites 10/12/2009 SALGUERO DO, LADONNA K 799.02 Hypoxemia 10/12/2009 SALGUERO DO, LADONNA K 719.58 Stiffness Of Joint, Not Elsewhere Classified, Other Specified Sites 10/12/2009 SALGUERO DO, LADONNA K 799.02 Hypoxemia 10/12/2009 MADL LIQUOR MAKER, ETELVINA L 719.58 Stiffness Of Joint, Not Elsewhere Classified, Other Specified Sites 10/12/2009 MADL LIQUOR MAKER, ETELVINA L 799.02 Hypoxemia 10/12/2009 SALGUERO DO, LADONNA K 719.58 Stiffness Of Joint, Not Elsewhere Classified, Other Specified Sites 10/12/2009 SALGUERO DO, LADONNA K 799.02 Hypoxemia 10/12/2009 MADL LIQUOR MAKER, ETELVINA L 719.58 Stiffness Of Joint, Not Elsewhere Classified, Other Specified Sites 10/12/2009 MADL LIQUOR MAKER, ETELVINA L 799.02 Hypoxemia 11/07/2009 PALOMA MORA APRNNDA S 300.00 ANXIETY UNSPEC 11/07/2009 PALOMA MORA APRNNDA S 305.1 NICOTINE DEPENDENCE - CONTINUOUS 11/07/2009 300.00 Anxiety Unspec 11/07/2009 305.1 NICOTINE DEPENDENCE - CONTINUOUS 11/07/2009 MORGAN LIQUOR MAKERPALOMA BowserNDA S 300.00 Anxiety Unspec 11/07/2009 MORGAN [...] 305.1 NICOTINE DEPENDENCE - CONTINUOUS 11/07/2009 MADL LIQUOR MAKER, ETELVINA L 300.00 Anxiety Unspec 11/07/2009 MADL LIQUOR MAKER, ETELVINA L 305.1 NICOTINE DEPENDENCE - CONTINUOUS 11/07/2009 MADL LIQUOR MAKER, ETELVINA L 300.00 Anxiety Unspec 11/07/2009 MADL LIQUOR MAKER, ETELVINA L 305.1 NICOTINE DEPENDENCE - CONTINUOUS 11/07/2009 MADL LIQUOR MAKER, ETELVINA L 300.00 Anxiety Unspec 11/07/2009 MADL LIQUOR MAKER, ETELVINA L 305.1 NICOTINE DEPENDENCE - CONTINUOUS 11/07/2009 SALGUERO DO, LADONNA K 300.00 Anxiety Unspec 11/07/2009 SALGUERO DO, LADONNA K 305.1 NICOTINE DEPENDENCE - CONTINUOUS 11/07/2009 SALGUERO DO, LADONNA K 300.00 Anxiety Unspec 11/07/2009 SALGUERO DO, LADONNA K 305.1 NICOTINE DEPENDENCE - CONTINUOUS 11/07/2009 MADL LIQUOR MAKER, ETELVINA L 300.00 Anxiety Unspec 11/07/2009 MADL LIQUOR MAKER, ETELVINA L 305.1 NICOTINE DEPENDENCE - CONTINUOUS 11/07/2009 MADL LIQUOR MAKER, ETELVINA L 300.00 Anxiety Unspec 11/07/2009 MADL LIQUOR MAKER, ETELVINA L 305.1 NICOTINE DEPENDENCE - CONTINUOUS 11/07/2009 MADL LIQUOR MAKER, ETELVINA L 300.00 Anxiety Unspec 11/07/2009 MADL LIQUOR MAKER, ETELVINA L 305.1 NICOTINE DEPENDENCE - CONTINUOUS 11/07/2009 MADL LIQUOR MAKER, ETELVINA L 300.00 Anxiety Unspec 11/07/2009 MADL LIQUOR MAKER, ETELVINA L 305.1 NICOTINE DEPENDENCE - CONTINUOUS 11/07/2009 MADL LIQUOR MAKER, ETELVINA L 300.00 Anxiety Unspec 11/07/2009 MADL LIQUOR MAKER, ETELVINA L 305.1 NICOTINE DEPENDENCE - CONTINUOUS 11/07/2009 MADL LIQUOR MAKER, ETELVINA L 300.00 Anxiety Unspec 11/07/2009 MADL LIQUOR MAKER, ETELVINA L 305.1 NICOTINE DEPENDENCE - CONTINUOUS 11/07/2009 MADL LIQUOR MAKER, ETELVINA L 300.00 Anxiety Unspec 11/07/2009 MADL LIQUOR MAKER, ETELVINA L 305.1 NICOTINE DEPENDENCE - CONTINUOUS 11/07/2009 SALGUERO DO, LADONNA K 300.00 Anxiety Unspec 11/07/2009 SALGUERO DO, LADONNA K 305.1 NICOTINE DEPENDENCE - CONTINUOUS 11/07/2009 SALGUERO DO, LADONNA K 300.00 Anxiety Unspec 11/07/2009 SALGUERO DO, LADONNA K 305.1 NICOTINE DEPENDENCE - CONTINUOUS 11/07/2009 MADL LIQUOR MAKER, ETELVINA L 300.00 Anxiety Unspec 11/07/2009 MADL LIQUOR MAKER, ETELVINA L 305.1 NICOTINE DEPENDENCE - CONTINUOUS 11/07/2009 SALGUERO DO, LADONNA K 300.00 Anxiety Unspec 11/07/2009 SALGUERO DO, LADONNA K 305.1 NICOTINE DEPENDENCE - CONTINUOUS 11/07/2009 MADL LIQUOR MAKER, ETELVINA L 300.00 Anxiety Unspec 11/07/2009 MADL LIQUOR MAKER, ETELVINA L 305.1 NICOTINE DEPENDENCE - CONTINUOUS 01/31/2010 LAURIE MORA APRN S 719.43 Joint Pain, Localized In The Wrist 01/31/2010 LAURIE MORA APRN S 782.0 Numbness (hypesthesia) 01/31/2010 719.43 Joint Pain, Localized In The Wrist 01/31/2010 782.0 Numbness ( hypesthesia) 01/31/2010 LAURIE MORA APRN 719.43 Joint Pain, Localized In The Wrist 01/31/2010 MORGAN LIQUOR MAKER, LAURIE S 782.0 Numbness (hypesthesia) 01/31/2010 MORGAN LIQUOR MAKER, LAURIE S 719.43 Joint Pain, Localized In [...] LADONNA K 782.0 Numbness (hypesthesia) 01/31/2010 MADL LIQUOR MAKER, ETELVINA L 719.43 Joint Pain, Localized In The Wrist 01/31/2010 MADL LIQUOR MAKER, ETELVINA L 782.0 Numbness (hypesthesia) 01/31/2010 MADL LIQUOR MAKER, ETELVINA L 719.43 Joint Pain, Localized In The Wrist 01/31/2010 MADL LIQUOR MAKER, ETELVINA L 782.0 Numbness (hypesthesia) 01/31/2010 MADL LIQUOR MAKER, ETELVINA L 719.43 Joint Pain, Localized In The Wrist 01/31/2010 MADL LIQUOR MAKER, ETELVINA L 782.0 Numbness (hypesthesia) 01/31/2010 SALGUERO DO, LADONNA K 719.43 Joint Pain, Localized In The Wrist 01/31/2010 SALGUERO DO, LADONNA K 782.0 Numbness (hypesthesia) 01/31/2010 SALGUERO DO, LADONNA K 719.43 Joint Pain, Localized In The Wrist 01/31/2010 SALGUERO DO, LADONNA K 782.0 Numbness (hypesthesia) 01/31/2010 MADL LIQUOR MAKER, ETELVINA L 719.43 Joint Pain, Localized In The Wrist 01/31/2010 MADL LIQUOR MAKER, ETELVINA L 782.0 Numbness (hypesthesia) 01/31/2010 MADL LIQUOR MAKER, ETELVINA L 719.43 Joint Pain, Localized In The Wrist 01/31/2010 MADL LIQUOR MAKER, ETELVINA L 782.0 Numbness (hypesthesia) 01/31/2010 MADL LIQUOR MAKER, ETELVINA L 719.43 Joint Pain, Localized In The Wrist 01/31/2010 MADL LIQUOR MAKER, ETELVINA L 782.0 Numbness (hypesthesia) 01/31/2010 MADL LIQUOR MAKER, ETELVINA L 719.43 Joint Pain, Localized In The Wrist 01/31/2010 MADL LIQUOR MAKER, ETELVINA L 782.0 Numbness (hypesthesia) 01/31/2010 MADL LIQUOR MAKER, ETELVINA L 719.43 Joint Pain, Localized In The Wrist 01/31/2010 MADL LIQUOR MAKER, ETELVINA L 782.0 Numbness (hypesthesia) 01/31/2010 MADL LIQUOR MAKER, ETELVINA L 719.43 Joint Pain, Localized In The Wrist 01/31/2010 MADL LIQUOR MAKER, ETELVINA L 782.0 Numbness (hypesthesia) 01/31/2010 MADL LIQUOR MAKER, ETELVINA L 719.43 Joint Pain, Localized In The Wrist 01/31/2010 MADL LIQUOR MAKER, ETELVINA L 782.0 Numbness (hypesthesia) 01/31/2010 SALGUERO DO, LADONNA K 719.43 Joint Pain, Localized In The Wrist 01/31/2010 SALGUERO DO, LADONNA K 782.0 Numbness (hypesthesia) 01/31/2010 SALGUERO DO, LADONNA K 719.43 Joint Pain, Localized In The Wrist 01/31/2010 SALGUERO DO, LADONNA K 782.0 Numbness (hypesthesia) 01/31/2010 MADL LIQUOR MAKER, ETELVINA L 719.43 Joint Pain, Localized In The Wrist 01/31/2010 MADL LIQUOR MAKER, ETELVINA L 782.0 Numbness (hypesthesia) 01/31/2010 SALGUERO DO LADONNA K 719.43 Joint Pain, Localized In The Wrist 01/31/2010 SALGUERO DO, LADONNA K 782.0 Numbness (hypesthesia) 01/31/2010 MADL LIQUOR MAKERHAMMAD BowserA L 719.43 Joint Pain, Localized In The Wrist 01/31/2010 MADL LIQUOR MAKER, ETELVINA L 782.0 Numbness (hypesthesia) 03/14/2010 Ot 719.43 03/14/2010 Ot 782.0 03/14/2010 Ot V57.21 04/02/2010 SUSHANT MORA APRNA S 517.3 Acute Chest Syndrome 04/02/2010 517.3 Acute Chest Syndrome 04/02/2010 ALURIE MORA APRN S 517.3 Acute Chest Syndrome [...] DO K 517.3 Acute Chest Syndrome 04/02/2010 BYORN BOSS MD 517.3 Acute Chest Syndrome 04/02/2010 [...] K 517.3 Acute Chest Syndrome 04/02/2010 MADMaxine LIQUOR MAKERHAMMAD BowserA L 517.3 Acute Chest Syndrome 04/02/2010 MADL LIQUOR MAKER, ETELVINA L 517.3 Acute Chest Syndrome 04/02/2010 MADL LIQUOR MAKER, ETELVINA L 517.3 Acute Chest Syndrome 04/02/2010 SALGUERO DO, LADONNA K 517.3 Acute Chest Syndrome 04/02/2010 SALGUERO DO, LADONNA K 517.3 Acute Chest Syndrome 04/02/2010 MADL LIQUOR MAKER, ETELVINA L 517.3 Acute Chest Syndrome 04/02/2010 MADL LIQUOR MAKER, ETELVINA L 517.3 Acute Chest Syndrome 04/02/2010 MADL LIQUOR MAKER, ETELVINA L 517.3 Acute Chest Syndrome 04/02/2010 MADL LIQUOR MAKER, ETELVINA L 517.3 Acute Chest Syndrome 04/02/2010 MADL LIQUOR MAKER, ETELVINA L 517.3 Acute Chest Syndrome 04/02/2010 MADL LIQUOR MAKER, ETELVINA L 517.3 Acute Chest Syndrome 04/02/2010 MADL LIQUOR MAKER, ETELVINA L 517.3 Acute Chest Syndrome 04/02/2010 SALGUERO DO, LADONNA K 517.3 Acute Chest Syndrome 04/02/2010 SALGUERO DO, LADONNA K 517.3 Acute Chest Syndrome 04/02/2010 MADL LIQUOR MAKER, ETELVINA L 517.3 Acute Chest Syndrome 04/02/2010 SALGUERO DO, LADONNA K 517.3 Acute Chest Syndrome 04/02/2010 MADL LIQUOR MAKER, ETELVINA L 517.3 Acute Chest Syndrome 04/14/2010 Ot 305.1 04/14/2010 Ot 491.21 04/14/2010 Ot 786.05 05/20/2010 MORGAN LIQUOR MAKER, LAURIE S 272.4 HYPERLIPIDEMIA 05/20/2010 MORGAN LIQUOR MAKER, LAURIE S 414.01 CAD 05/20/2010 272.4 HYPERLIPIDEMIA 05/20/2010 414.01 CAD 05/20/2010 MORGAN LIQUOR MAKER, LAURIE S 272.4 HYPERLIPIDEMIA 05/20/2010 MORGAN LIQUOR MAKER, LAURIE S 414.01 CAD 05/20/2010 MORGAN LIQUOR MAKER, LAURIE S 272.4 HYPERLIPIDEMIA 05/20/2010 MORGAN HUDSONN, [...] 414.01 CORONARY ARTERY STENOSIS MULTI-VESSEL 05/20/2010 MADL LIQUOR MAKER, ETEVLINA L 272.4 HYPERLIPIDEMIA 05/20/2010 MADL LIQUOR MAKER, ETELVINA L 414.01 CORONARY ARTERY STENOSIS MULTI-VESSEL 05/20/2010 MADL LIQUOR MAKER, ETELVINA L 272.4 HYPERLIPIDEMIA 05/20/2010 MADL LIQUOR MAKER, ETELVINA L 414.01 CORONARY ARTERY STENOSIS MULTI-VESSEL 05/20/2010 MADL LIQUOR MAKER, ETELVINA L 272.4 HYPERLIPIDEMIA 05/20/2010 MADL LIQUOR MAKER, ETELVINA L 414.01 CORONARY ARTERY STENOSIS MULTI-VESSEL 05/20/2010 SALGUERO DO, LADONNA K 272.4 HYPERLIPIDEMIA 05/20/2010 SALGUERO DO, LADONNA K 414.01 CORONARY ARTERY STENOSIS MULTI-VESSEL 05/20/2010 SALGUERO DO, LADONNA K 272.4 HYPERLIPIDEMIA 05/20/2010 SALGUERO DO, LADONNA K 414.01 CORONARY ARTERY STENOSIS MULTI-VESSEL 05/20/2010 MADL LIQUOR MAKER, ETELVINA L 272.4 HYPERLIPIDEMIA 05/20/2010 MADL LIQUOR MAKER, ETELVINA L 414.01 CORONARY ARTERY STENOSIS MULTI-VESSEL 05/20/2010 MADL LIQUOR MAKER, ETELVINA L 272.4 HYPERLIPIDEMIA 05/20/2010 MADL LIQUOR MAKER, ETELVINA L 414.01 CORONARY ARTERY STENOSIS MULTI-VESSEL 05/20/2010 MADL LIQUOR MAKER, ETELVINA L 272.4 HYPERLIPIDEMIA 05/20/2010 MADL LIQUOR MAKER, ETELVINA L 414.01 CORONARY ARTERY STENOSIS MULTI-VESSEL 05/20/2010 MADL LIQUOR MAKER, ETELVINA L 272.4 HYPERLIPIDEMIA 05/20/2010 MADL LIQUOR MAKER, ETELVINA L 414.01 CORONARY ARTERY STENOSIS MULTI-VESSEL 05/20/2010 MADL LIQUOR MAKER, ETELVINA L 272.4 HYPERLIPIDEMIA 05/20/2010 MADL LIQUOR MAKER, ETELVINA L 414.01 CORONARY ARTERY STENOSIS MULTI-VESSEL 05/20/2010 MADL LIQUOR MAKER, ETELVINA L 272.4 HYPERLIPIDEMIA 05/20/2010 MADL LIQUOR MAKER, ETELVINA L 414.01 CORONARY ARTERY STENOSIS MULTI-VESSEL 05/20/2010 MADL LIQUOR MAKER, ETELVINA L 272.4 HYPERLIPIDEMIA 05/20/2010 MADL LIQUOR MAKER, ETELVINA L 414.01 CORONARY ARTERY STENOSIS MULTI-VESSEL 05/20/2010 SALGUERO DO, LADONNA K 272.4 HYPERLIPIDEMIA 05/20/2010 SALGUERO DO, LADONNA K 414.01 CORONARY ARTERY STENOSIS MULTI-VESSEL 05/20/2010 SALGUERO DO, LADONNA K 272.4 HYPERLIPIDEMIA 05/20/2010 SALGUERO DO, LADONNA K 414.01 CORONARY ARTERY STENOSIS MULTI-VESSEL 05/20/2010 MADL LIQUOR MAKER, ETELVINA L 272.4 HYPERLIPIDEMIA 05/20/2010 MADL LIQUOR MAKER, ETELVINA L 414.01 CORONARY ARTERY STENOSIS MULTI-VESSEL 05/20/2010 SALGUERO DO, LADONNA K 272.4 HYPERLIPIDEMIA 05/20/2010 SALGUERO DO, LADONNA K 414.01 CORONARY ARTERY STENOSIS MULTI-VESSEL 05/20/2010 MADL LIQUOR MAKER, ETELVINA L 272.4 HYPERLIPIDEMIA 05/20/2010 MADL LIQUOR MAKER, ETELVINA L 414.01 CORONARY ARTERY STENOSIS MULTI-VESSEL [...] 356.9 UNSPECIFIED IDIOPATHIC PERIPHERAL NEUROPATHY 07/31/2010 MADL LIQUOR MAKER, ETELVINA L 356.9 UNSPECIFIED IDIOPATHIC PERIPHERAL NEUROPATHY 07/31/2010 MADL LIQUOR MAKER, ETELVINA L 356.9 UNSPECIFIED IDIOPATHIC PERIPHERAL NEUROPATHY 07/31/2010 MADL LIQUOR MAKER, ETELVINA L 356.9 UNSPECIFIED IDIOPATHIC PERIPHERAL NEUROPATHY 07/31/2010 SALGUERO DO, LADONNA K 356.9 UNSPECIFIED IDIOPATHIC PERIPHERAL NEUROPATHY 07/31/2010 SALGUERO DO, LADONNA K 356.9 UNSPECIFIED IDIOPATHIC PERIPHERAL NEUROPATHY 07/31/2010 MADL LIQUOR MAKER, ETELVINA L 356.9 UNSPECIFIED IDIOPATHIC PERIPHERAL NEUROPATHY 07/31/2010 MADL LIQUOR MAKER, ETELVINA L 356.9 UNSPECIFIED IDIOPATHIC PERIPHERAL NEUROPATHY 07/31/2010 MADL LIQUOR MAKER, ETELVINA L 356.9 UNSPECIFIED IDIOPATHIC PERIPHERAL NEUROPATHY 07/31/2010 MADL LIQUOR MAKER, ETELVINA L 356.9 UNSPECIFIED IDIOPATHIC PERIPHERAL NEUROPATHY 07/31/2010 MADL LIQUOR MAKER, ETELVINA L 356.9 UNSPECIFIED IDIOPATHIC PERIPHERAL NEUROPATHY 07/31/2010 MADL LIQUOR MAKER, ETELVINA L 356.9 UNSPECIFIED IDIOPATHIC PERIPHERAL NEUROPATHY 07/31/2010 MADL LIQUOR MAKER, ETELVINA L 356.9 UNSPECIFIED IDIOPATHIC PERIPHERAL NEUROPATHY 07/31/2010 SALGUERO DO, LADONNA K 356.9 UNSPECIFIED IDIOPATHIC PERIPHERAL NEUROPATHY 07/31/2010 SALGUERO DO, LADONNA K 356.9 UNSPECIFIED IDIOPATHIC PERIPHERAL NEUROPATHY 07/31/2010 MADL LIQUOR MAKER, ETELVINA L 356.9 UNSPECIFIED IDIOPATHIC PERIPHERAL NEUROPATHY 07/31/2010 SALGUERO DO, LADONNA K 356.9 UNSPECIFIED IDIOPATHIC PERIPHERAL NEUROPATHY 07/31/2010 MADL LIQUOR MAKER, ETELVINA L 356.9 UNSPECIFIED IDIOPATHIC PERIPHERAL NEUROPATHY 08/01/2010 MORGAN LIQUOR MAKER, LAURIE S 791.0 Microalbuminuria 08/01/2010 791.0 Microalbuminuria 08/01/2010 MORGAN LIQUOR MAKER, LAURIE S 791.0 Microalbuminuria 08/01/2010 MORGAN LIQUOR MAKER, LAURIE S 791.0 Microalbuminuria 08/01/2010 ROMELIA FISCHER [...] DO, LADONNA K 791.0 Microalbuminuria 08/01/2010 MADL LIQUOR MAKER, ETELVINA L 791.0 Microalbuminuria 08/01/2010 MADL LIQUOR MAKER, ETELVINA L 791.0 Microalbuminuria 08/01/2010 MADL LIQUOR MAKER, ETELVINA L 791.0 Microalbuminuria 08/01/2010 SALGUERO DO, LADONNA K 791.0 Microalbuminuria 08/01/2010 SALGUERO DO, LADONNA K 791.0 Microalbuminuria 08/01/2010 MADL LIQUOR MAKER, ETELVINA L 791.0 Microalbuminuria 08/01/2010 MADL LIQUOR MAKER, ETELVINA L 791.0 Microalbuminuria 08/01/2010 MADL LIQUOR MAKER, ETELVINA L 791.0 Microalbuminuria 08/01/2010 MADL LIQUOR MAKER, ETELVINA L 791.0 Microalbuminuria 08/01/2010 MADL LIQUOR MAKER, ETELVINA L 791.0 Microalbuminuria 08/01/2010 MADL LIQUOR MAKER, ETELVINA L 791.0 Microalbuminuria 08/01/2010 MADL LIQUOR MAKER, ETELVINA L 791.0 Microalbuminuria 08/01/2010 SALGUERO DO, LADONNA K 791.0 Microalbuminuria 08/01/2010 SALGUERO DO, LADONNA K 791.0 Microalbuminuria 08/01/2010 MADL LIQUOR MAKER, ETELVINA L 791.0 Microalbuminuria 08/01/2010 SALGUERO DO, LADONNA K 791.0 Microalbuminuria 08/01/2010 MADL LIQUOR MAKER, ETELVINA L 791.0 Microalbuminuria 08/05/2010 LAURIE MORA [...] 721.0 Cervical Spondylosis Without Myelopathy 08/05/2010 MADL LIQUOR MAKER, ETELVINA L 721.0 Cervical Spondylosis Without Myelopathy 08/05/2010 MADL LIQUOR MAKER, ETELIVNA L 721.0 Cervical Spondylosis Without Myelopathy 08/05/2010 MADL LIQUOR MAKER, ETELVINA L 721.0 Cervical Spondylosis Without Myelopathy 08/05/2010 SALGUERO DO, LADONNA K 721.0 Cervical Spondylosis Without Myelopathy 08/05/2010 SALGUERO DO, LADONNA K 721.0 Cervical Spondylosis Without Myelopathy 08/05/2010 MADL LIQUOR MAKER, ETELVINA L 721.0 Cervical Spondylosis Without Myelopathy 08/05/2010 MADL LIQUOR MAKER, ETELVINA L 721.0 Cervical Spondylosis Without Myelopathy 08/05/2010 MADL LIQUOR MAKER, ETELVINA L 721.0 Cervical Spondylosis Without Myelopathy 08/05/2010 MADL LIQUOR MAKER, ETELVINA L 721.0 Cervical Spondylosis Without Myelopathy 08/05/2010 MADL LIQUOR MAKER, ETELVINA L 721.0 Cervical Spondylosis Without Myelopathy 08/05/2010 MADL LIQUOR MAKER, ETELVINA L 721.0 Cervical Spondylosis Without Myelopathy 08/05/2010 MADL LIQUOR MAKER, ETELVINA L 721.0 Cervical Spondylosis Without Myelopathy 08/05/2010 SALGUERO DO, LADONNA K 721.0 Cervical Spondylosis Without Myelopathy 08/05/2010 SALGUERO DO, LADONNA K 721.0 Cervical Spondylosis Without Myelopathy 08/05/2010 HUGOL LIQUOR MAKER, ETELVINA Goodman 721.0 Cervical Spondylosis Without Myelopathy 08/05/2010 LADONNA SALGUERO DO K 721.0 Cervical Spondylosis Without Myelopathy 08/05/2010 MADL LIQUOR MAKER, ETELVINA Goodman 721.0 Cervical Spondylosis Without Myelopathy 08/07/2010 Ot 847.0 08/07/2010 Ot 847.2 08/07/2010 Ot 959.09 08/07/2010 Ot E000.8 08/07/2010 Ot E849.0 08/07/2010 Ot E884.2 08/13/2010 MORGAN HARRIS LAURIE S 441.4 ABDOMINAL ANEURYSM WITHOUT MENTION OF RUPTURE 08/13/2010 MORGAN LIQUOR MAKER, LAURIE S 724.2 LUMBAGO 08/13/2010 441.4 Abdominal Aneurysm Without Mention Of Rupture 08/13/2010 724.2 LUMBAGO 08/13/2010 MORGAN HARRIS LAURIE S 441.4 Abdominal Aneurysm Without Mention Of Rupture 08/13/2010 MORGAN LIQUOR MAKER, LAURIE S 724.2 LUMBAGO 08/13/2010 MORGAN LIQUOR MAKER, LAURIE S 441.4 Abdominal Aneurysm Without Mention [...] K 724.2 lower back pain 08/13/2010 MADL LIQUOR MAKER, ETELVINA L 441.4 Abdominal Aneurysm Without Mention Of Rupture 08/13/2010 MADL LIQUOR MAKER, ETELVINA L 724.2 lower back pain 08/13/2010 MADL LIQUOR MAKER, ETELVINA L 441.4 Abdominal Aneurysm Without Mention Of Rupture 08/13/2010 MADL LIQUOR MAKER, ETELVINA L 724.2 lower back pain 08/13/2010 MADL LIQUOR MAKER, ETELVINA L 441.4 Abdominal Aneurysm Without Mention Of Rupture 08/13/2010 MADL LIQUOR MAKER, ETELVINA L 724.2 lower back pain 08/13/2010 SALGUERO DO, LADONNA K 441.4 Abdominal Aneurysm Without Mention Of Rupture 08/13/2010 SALGUERO DO, LADONNA K 724.2 lower back pain 08/13/2010 SALGUERO DO, LADONNA K 441.4 Abdominal Aneurysm Without Mention Of Rupture 08/13/2010 SALGUERO DO, LADONNA K 724.2 lower back pain 08/13/2010 MADL LIQUOR MAKER, ETELVINA L 441.4 Abdominal Aneurysm Without Mention Of Rupture 08/13/2010 MADL LIQUOR MAKER, ETELVINA L 724.2 lower back pain 08/13/2010 MADL LIQUOR MAKER, ETELVINA L 441.4 Abdominal Aneurysm Without Mention Of Rupture 08/13/2010 MADL LIQUOR MAKER, ETELVINA L 724.2 lower back pain 08/13/2010 MADL LIQUOR MAKER, ETELVINA L 441.4 Abdominal Aneurysm Without Mention Of Rupture 08/13/2010 MADL LIQUOR MAKER, ETELVINA L 724.2 lower back pain 08/13/2010 MADL LIQUOR MAKER, ETELVINA L 441.4 Abdominal Aneurysm Without Mention Of Rupture 08/13/2010 MADL LIQUOR MAKER, ETELVINA L 724.2 lower back pain 08/13/2010 MADL LIQUOR MAKER, ETELVINA L 441.4 Abdominal Aneurysm Without Mention Of Rupture 08/13/2010 MADL LIQUOR MAKER, ETELVINA L 724.2 lower back pain 08/13/2010 MADL LIQUOR MAKER, ETELVINA L 441.4 Abdominal Aneurysm Without Mention Of Rupture 08/13/2010 MADL LIQUOR MAKER, ETELVINA L 724.2 lower back pain 08/13/2010 MADL LIQUOR MAKER, ETELVINA L 441.4 Abdominal Aneurysm Without Mention Of Rupture 08/13/2010 MADL LIQUOR MAKER, ETELVINA L 724.2 lower back pain 08/13/2010 SALGUERO DO, LADONNA K 441.4 Abdominal Aneurysm Without Mention Of Rupture 08/13/2010 SALGUERO DO, LADONNA K 724.2 lower back pain 08/13/2010 TREE SALGUERO DOA K 441.4 Abdominal Aneurysm Without Mention Of Rupture 08/13/2010 NOEMY DOTEREA K 724.2 lower back pain 08/13/2010 MADL LIQUOR MAKERETELVINA Bowser L 441.4 Abdominal Aneurysm Without Mention Of Rupture 08/13/2010 HUGOL ETELVINA HARRIS L 724.2 lower back pain 08/13/2010 TERE SALGUERO DOA K 441.4 Abdominal Aneurysm Without Mention Of Rupture 08/13/2010 TERE SALGUERO DOA K 724.2 lower back pain 08/13/2010 MADL LIQUOR MAKERHAMMAD BowserA L 441.4 Abdominal Aneurysm Without Mention [...] Pain In Joint Site Unspecified 12/12/2010 MORGAN LIQUOR MAKER, LAURIE S 724.5 Back Pain, General 12/12/2010 MORGAN LIQUOR MAKER, LAURIE S 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 12/12/2010 MORGAN LIQUOR MAKER, LAURIE S 729.5 Arm Pain 12/12/2010 MORGAN LIQUOR MAKER, LAURIE S 719.40 Pain In Joint Site Unspecified 12/12/2010 MORGAN LIQUOR MAKER, LAURIE S 724.5 Back Pain, General 12/12/2010 MORGAN LIQUOR MAKER, LAURIE S 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 12/12/2010 MORGAN LIQUOR MAKER, LAURIE S 729.5 Arm Pain 12/12/2010 AMADO [...] LADONNA K 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 12/12/2010 SALUGERO DO, LADONNA K 729.5 Arm Pain 12/12/2010 SALGUERO DO, LADONNA K 719.40 Pain In Joint Site Unspecified 12/12/2010 SALGUERO DO, LADONNA K 724.5 Back Pain, General 12/12/2010 SALGUERO DO, LADONNA K 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 12/12/2010 SALGUERO DO, LADONNA K 729.5 Arm Pain 12/12/2010 MADL LIQUOR MAKER, ETELVINA L 719.40 Pain In Joint Site Unspecified 12/12/2010 MADL LIQUOR MAKER, ETELVINA L 724.5 Back Pain, General 12/12/2010 MADL LIQUOR MAKER, ETELVINA L 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 12/12/2010 MADL LIQUOR MAKER, ETELVINA L 729.5 Arm Pain 12/12/2010 MADL LIQUOR MAKER, ETELVINA L 719.40 Pain In Joint Site Unspecified 12/12/2010 MADL LIQUOR MAKER, ETELVINA L 724.5 Back Pain, General 12/12/2010 MADL LIQUOR MAKER, ETELVINA L 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 12/12/2010 MADL LIQUOR MAKER, ETELVINA L 729.5 Arm Pain 12/12/2010 MADL LIQUOR MAKER, ETELVINA L 719.40 Pain In Joint Site Unspecified 12/12/2010 MADL LIQUOR MAKER, ETELVINA L 724.5 Back Pain, General 12/12/2010 MADL LIQUOR MAKER, ETELVINA L 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 12/12/2010 MADL LIQUOR MAKER, ETELVINA L 729.5 Arm Pain 12/12/2010 SALGUERO [...] LADONNA K 729.5 Arm Pain 12/12/2010 MADL LIQUOR MAKER, ETELVINA L 719.40 Pain In Joint Site Unspecified 12/12/2010 MADL LIQUOR MAKER, ETELVINA L 724.5 Back Pain, General 12/12/2010 MADL LIQUOR MAKER, ETELVINA L 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 12/12/2010 MADL LIQUOR MAKER, ETELVINA L 729.5 Arm Pain 12/12/2010 MADL LIQUOR MAKER, ETELVINA L 719.40 Pain In Joint Site Unspecified 12/12/2010 MADL LIQUOR MAKER, ETELVINA L 724.5 Back Pain, General 12/12/2010 MADL LIQUOR MAKER, ETELVINA L 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 12/12/2010 MADL LIQUOR MAKER, ETELVINA L 729.5 Arm Pain 12/12/2010 MADL LIQUOR MAKER, ETELVINA L 719.40 Pain In Joint Site Unspecified 12/12/2010 MADL LIQUOR MAKER, ETELVINA L 724.5 Back Pain, General 12/12/2010 MADL LIQUOR MAKER, ETELVINA L 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 12/12/2010 MADL LIQUOR MAKER, ETELVINA L 729.5 Arm Pain 12/12/2010 MADL LIQUOR MAKER, ETELVINA L 719.40 Pain In Joint Site Unspecified 12/12/2010 MADL LIQUOR MAKER, ETELVINA L 724.5 Back Pain, General 12/12/2010 MADL LIQUOR MAKER, ETELVNIA L 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 12/12/2010 MADL LIQUOR MAKER, ETELVINA L 729.5 Arm Pain 12/12/2010 MADL LIQUOR MAKER, ETELVINA L 719.40 Pain In Joint Site Unspecified 12/12/2010 MADL LIQUOR MAKER, ETELVINA L 724.5 Back Pain, General 12/12/2010 MADL LIQUOR MAKER, ETELVINA L 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 12/12/2010 MADL LIQUOR MAKER, ETELVINA L 729.5 Arm Pain 12/12/2010 MADL LIQUOR MAKER, ETELVINA L 719.40 Pain In Joint Site Unspecified 12/12/2010 MADL LIQUOR MAKER, ETLEVINA L 724.5 Back Pain, General 12/12/2010 MADL LIQUOR MAKER, ETELVINA L 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 12/12/2010 MADL LIQUOR MAKER, ETELVINA L 729.5 Arm Pain 12/12/2010 MADL LIQUOR MAKER, ETELVINA L 719.40 Pain In Joint Site Unspecified 12/12/2010 MADL LIQUOR MAKER, ETELVINA L 724.5 Back Pain, General 12/12/2010 MADL LIQUOR MAKER, ETELVINA L 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 12/12/2010 MADL LIQUOR MAKER, ETELVINA L 729.5 Arm Pain 12/12/2010 SALGUERO [...] LADONNA K 729.5 Arm Pain 12/12/2010 MADL LIQUOR MAKER, ETELVINA L 719.40 Pain In Joint Site Unspecified 12/12/2010 MADL LIQUOR MAKER, ETELVINA L 724.5 Back Pain, General 12/12/2010 MADL LIQUOR MAKER, ETELVINA L 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 12/12/2010 MADL LIQUOR MAKER, ETELVINA L 729.5 Arm Pain 12/12/2010 SALGUERO DO, LADONNA K 719.40 Pain In Joint Site Unspecified 12/12/2010 SALGUERO DO, LADONNA K 724.5 Back Pain, General 12/12/2010 SALGUERO DO, LADONNA K 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 12/12/2010 SALGUERO DO, LADONNA K 729.5 Arm Pain 12/12/2010 MADL LIQUOR MAKER, ETELVINA L 719.40 Pain In Joint Site Unspecified 12/12/2010 MADL LIQUOR MAKER, ETELVINA L 724.5 Back Pain, General 12/12/2010 MADL LIQUOR MAKER, ETELVINA L 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 12/12/2010 MADL LIQUOR MAKER, ETELVINA L 729.5 Arm Pain 01/22/2011 Ot [...] V68.1 ISSUE OF REPEAT PRESCRIPTIONS 06/17/2011 MADL LIQUOR MAKERHAMMAD BowserA L V68.1 ISSUE OF REPEAT PRESCRIPTIONS 06/17/2011 SALGUERO DOTEREA K V68.1 ISSUE OF REPEAT PRESCRIPTIONS 06/17/2011 SALGUERO DOTEREA K V68.1 ISSUE OF REPEAT PRESCRIPTIONS 06/17/2011 MADL LIQUOR MAKERANDREZETELVINA L V68.1 ISSUE OF REPEAT PRESCRIPTIONS 06/17/2011 MADL LIQUOR MAKERANDREZETELVINA L V68.1 ISSUE OF REPEAT PRESCRIPTIONS 06/17/2011 MADL LIQUOR MAKER, ETELVINA L V68.1 ISSUE OF REPEAT PRESCRIPTIONS 06/17/2011 MADL LIQUOR MAKERSARAETELVINA L V68.1 ISSUE OF REPEAT PRESCRIPTIONS 06/17/2011 MADL LIQUOR MAKER, ETELVINA L V68.1 ISSUE OF REPEAT PRESCRIPTIONS 06/17/2011 MADL LIQUOR MAKERANDREZ BowserNYA L V68.1 ISSUE OF REPEAT PRESCRIPTIONS [...] TY 07/14/2011 Ot 414.01 CORONARY ATHEROSCLEROSIS OF [place] CORON 07/14/2011 Ot 496 CHR AIRWAY OBSTRUCT [...] (3 Yrs And Above, Im) 07/31/2011 MADL LIQUOR MAKER, ETELVINA L V04.81 Flu Dx (3 Yrs And Above, Im) 07/31/2011 MADL LIQUOR MAKER, ETELVINA L V04.81 Flu Dx (3 Yrs And Above, Im) 07/31/2011 MADL LIQUOR MAKER, ETELVINA L V04.81 Flu Dx (3 Yrs And Above, Im) 07/31/2011 SALGUERO DO, LADONNA K V04.81 Flu Dx (3 Yrs And Above, Im) 07/31/2011 SALGUERO DO, LADONNA K V04.81 Flu Dx (3 Yrs And Above, Im) 07/31/2011 MADL LIQUOR MAKER, ETELVINA L V04.81 Flu Dx (3 Yrs And Above, Im) 07/31/2011 MADL LIQUOR MAKER, ETELVINA L V04.81 Flu Dx (3 Yrs And Above, Im) 07/31/2011 MADL LIQUOR MAKER, ETELVINA L V04.81 Flu Dx (3 Yrs And Above, Im) 07/31/2011 MADL LIQUOR MAKER, ETELVINA L V04.81 Flu Dx (3 Yrs And Above, Im) 07/31/2011 MADL LIQUOR MAKER, ETELVINA L V04.81 Flu Dx (3 Yrs And Above, Im) 07/31/2011 MADL LIQUOR MAKER, ETELVINA L V04.81 Flu Dx (3 Yrs And Above, Im) 07/31/2011 MADL LIQUOR MAKER, ETELVINA L V04.81 Flu Dx (3 Yrs And Above, Im) 07/31/2011 SALGUERO DO, LADONNA K V04.81 Flu Dx (3 Yrs And Above, Im) 07/31/2011 SALGUERO DO, LADONNA K V04.81 Flu Dx (3 Yrs And Above, Im) 07/31/2011 MADL LIQUOR MAKER, ETELVINA L V04.81 Flu Dx (3 Yrs And Above, Im) 07/31/2011 SALGUERO DO, LADONNA K V04.81 Flu Dx (3 Yrs And Above, Im) 07/31/2011 MADL LIQUOR MAKER, ETELVINA L V04.81 Flu Dx (3 Yrs And Above, Im) 08/27/2011 MORGAN LIQUOR MAKER, LAURIE S 780.50 SLEEP DISTURBANCE, UNSPECIFIED 08/27/2011 780.50 Sleep Disturbance, Unspecified 08/27/2011 MORGAN LIQUOR MAKER, LAURIE S 780.50 Sleep Disturbance, Unspecified 08/27/2011 MORGAN LIQUOR MAKER, LAURIE S 780.50 Sleep Disturbance, Unspecified 08/27/2011 [...] K 780.50 Sleep Disturbance, Unspecified 08/27/2011 MADL LIQUOR MAKER, ETELVINA L 780.50 Sleep Disturbance, Unspecified 08/27/2011 MADL LIQUOR MAKER, ETELVINA L 780.50 Sleep Disturbance, Unspecified 08/27/2011 MADL LIQUOR MAKER, ETELVINA L 780.50 Sleep Disturbance, Unspecified 08/27/2011 SALGUERO DO, LADONNA K 780.50 Sleep Disturbance, Unspecified 08/27/2011 SALGUERO DO, LADONNA K 780.50 Sleep Disturbance, Unspecified 08/27/2011 MADL LIQUOR MAKER, ETELVINA L 780.50 Sleep Disturbance, Unspecified 08/27/2011 MADL LIQUOR MAKER, ETELVINA L 780.50 Sleep Disturbance, Unspecified 08/27/2011 MADL LIQUOR MAKER, ETELVINA L 780.50 Sleep Disturbance, Unspecified 08/27/2011 MADL LIQUOR MAKER, ETELVINA L 780.50 Sleep Disturbance, Unspecified 08/27/2011 MADL LIQUOR MAKER, ETELVINA L 780.50 Sleep Disturbance, Unspecified 08/27/2011 MADL LIQUOR MAKER, ETELVINA L 780.50 Sleep Disturbance, Unspecified 08/27/2011 MADL LIQUOR MAKER, ETELVINA L 780.50 Sleep Disturbance, Unspecified 08/27/2011 SALGUERO DO, LADONNA K 780.50 Sleep Disturbance, Unspecified 08/27/2011 SALGUERO DO, LADONNA K 780.50 Sleep Disturbance, Unspecified 08/27/2011 MADL LIQUOR MAKER, ETELVINA L 780.50 Sleep Disturbance, Unspecified 08/27/2011 SALGUERO DO, LADONNA K 780.50 Sleep Disturbance, Unspecified 08/27/2011 MADL LIQUOR MAKER, ETELVINA L 780.50 Sleep Disturbance, Unspecified 09/26/2011 MORGAN LIQUOR MAKER, LAURIE S 788.41 URINARY FREQUENCY 09/26/2011 MORGAN LIQUOR MAKER, LAURIE S 788.63 URINARY URGENCY 09/26/2011 788.41 Urinary Frequency 09/26/2011 788.63 Urinary Urgency 09/26/2011 MORGAN LIQUOR MAKER, LAURIE S 788.41 Urinary Frequency 09/26/2011 MORGAN LIQUOR MAKER, LAURIE S 788.63 Urinary Urgency 09/26/2011 MORGAN LIQUOR MAKER, LAURIE S 788.41 Urinary Frequency 09/26/2011 MORGAN LIQUOR MAKER, LAURIE S 788.63 Urinary Urgency 09/26/2011 ROMELIA [...] LADONNA K 788.63 Urinary Urgency 09/26/2011 MADL LIQUOR MAKER, ETELVINA L 788.41 Urinary Frequency 09/26/2011 MADL LIQUOR MAKER, ETELVINA L 788.63 Urinary Urgency 09/26/2011 MADL LIQUOR MAKER, ETELVINA L 788.41 Urinary Frequency 09/26/2011 MADL LIQUOR MAKER, ETELVINA L 788.63 Urinary Urgency 09/26/2011 MADL LIQUOR MAKER, ETELVINA L 788.41 Urinary Frequency 09/26/2011 MADL LIQUOR MAKER, ETELVINA L 788.63 Urinary Urgency 09/26/2011 SALGUERO DO, LADONNA K 788.41 Urinary Frequency 09/26/2011 SALGUERO DO, LADONNA K 788.63 Urinary Urgency 09/26/2011 SALGUERO DO, LADONNA K 788.41 Urinary Frequency 09/26/2011 SALGUERO DO, LADONNA K 788.63 Urinary Urgency 09/26/2011 MADL LIQUOR MAKER, ETELVINA L 788.41 Urinary Frequency 09/26/2011 MADL LIQUOR MAKER, ETELVINA L 788.63 Urinary Urgency 09/26/2011 MADL LIQUOR MAKER, ETELVINA L 788.41 Urinary Frequency 09/26/2011 MADL LIQUOR MAKER, ETELVINA L 788.63 Urinary Urgency 09/26/2011 MADL LIQUOR MAKER, ETELVINA L 788.41 Urinary Frequency 09/26/2011 MADL LIQUOR MAKER, ETELVNIA L 788.63 Urinary Urgency 09/26/2011 MADL LIQUOR MAKER, ETELVINA L 788.41 Urinary Frequency 09/26/2011 MADL LIQUOR MAKER, ETELVINA L 788.63 Urinary Urgency 09/26/2011 MADL LIQUOR MAKER, ETELVINA L 788.41 Urinary Frequency 09/26/2011 MADL LIQUOR MAKER, ETELVINA L 788.63 Urinary Urgency 09/26/2011 MADL LIQUOR MAKER, ETELVINA L 788.41 Urinary Frequency 09/26/2011 MADL LIQUOR MAKER, ETELVINA L 788.63 Urinary Urgency 09/26/2011 MADL LIQUOR MAKER, ETELVINA L 788.41 Urinary Frequency 09/26/2011 MADL LIQUOR MAKER, ETELVINA L 788.63 Urinary Urgency 09/26/2011 SALGUERO DO, LADONNA K 788.41 Urinary Frequency 09/26/2011 SALGUERO DO, LADONNA K 788.63 Urinary Urgency 09/26/2011 SALGUERO DO, LADONNA K 788.41 Urinary Frequency 09/26/2011 SALGUERO DO, LADONNA K 788.63 Urinary Urgency 09/26/2011 MADL LIQUOR MAKER, ETELVINA L 788.41 Urinary Frequency 09/26/2011 MADL LIQUOR MAKER, ETELVINA L 788.63 Urinary Urgency 09/26/2011 SALGUERO DO, LADONNA K 788.41 Urinary Frequency 09/26/2011 SALGUERO DO, LADONNA K 788.63 Urinary Urgency 09/26/2011 MADL LIQUOR MAKER, ETELVINA L 788.41 Urinary Frequency 09/26/2011 MADL LIQUOR MAKER, ETELVINA L 788.63 Urinary Urgency 10/18/2011 MORGAN [...] PAIN 11/11/2011 Ot 414.01 CORONARY ATHEROSCLEROSIS OF [place] CORON 11/11/2011 Ot 424.1 AORTIC VALVE DISORDER [...] BYRON M 461.9 Sinusitis Acute 12/04/2011 KARYN OLVREA, BYRON M 461.9 Sinusitis Acute 12/04/2011 SALGUERO DO, LADONNA K 461.9 Sinusitis Acute 12/04/2011 SALGUERO DO, LADONNA K 461.9 Sinusitis Acute 12/04/2011 SALGUERO DO, LADONNA K 461.9 Sinusitis Acute 12/04/2011 SALGUERO DO, LADONNA K 461.9 Sinusitis Acute 12/04/2011 MADL LIQUOR MAKER, ETELVINA L 461.9 Sinusitis Acute 12/04/2011 MADL LIQUOR MAKER, ETELVINA L 461.9 Sinusitis Acute 12/04/2011 MADL LIQUOR MAKER, ETELVINA L 461.9 Sinusitis Acute 12/04/2011 SALGUERO DO, LADONNA K 461.9 Sinusitis Acute 12/04/2011 SALGUEOR DO, LADONNA K 461.9 Sinusitis Acute 12/04/2011 MADL LIQUOR MAKER, ETELVINA L 461.9 Sinusitis Acute 12/04/2011 MADL LIQUOR MAKER, ETELVINA L 461.9 Sinusitis Acute 12/04/2011 MADL LIQUOR MAKER, ETELVINA L 461.9 Sinusitis Acute 12/04/2011 MADL LIQUOR MAKER, ETELVINA L 461.9 Sinusitis Acute 12/04/2011 MADL LIQUOR MAKER, ETELVINA L 461.9 Sinusitis Acute 12/04/2011 MADL LIQUOR MAKER, ETELVINA L 461.9 Sinusitis Acute 12/04/2011 MADL LIQUOR MAKER, ETELVINA L 461.9 Sinusitis Acute 12/04/2011 SALGUERO DO, LADONNA K 461.9 Sinusitis Acute 12/04/2011 SALGUERO DO, LADONNA K 461.9 Sinusitis Acute 12/04/2011 MADL LIQUOR MAKER, ETELVINA L 461.9 Sinusitis Acute 12/04/2011 SALGUERO DO, LADONNA K 461.9 Sinusitis Acute 12/04/2011 MADL LIQUOR MAKER, ETELVINA L 461.9 Sinusitis Acute 12/19/2011 MORGAN LIQUOR MAKER, LAURIE S 486 PNEUMONIA UNSPECIFIED 12/19/2011 MORGAN LIQUOR MAKER, LAURIE S 786.2 COUGH 12/19/2011 486 Pneumonia Unspecified 12/19/2011 786.2 Cough 12/19/2011 MORGAN LIQUOR MAKER, LAURIE S 486 Pneumonia Unspecified 12/19/2011 MORGAN LIQUOR MAKER, LAURIE S 786.2 Cough 12/19/2011 MROGAN LIQUOR MAKER, LAURIE S 486 Pneumonia Unspecified 12/19/2011 MORGAN LIQUOR MAKER, LAURIE S 786.2 Cough 12/19/2011 ROMELIA FISCHER [...] K 486 Pneumonia Unspecified 12/19/2011 SALGUERO DO, ALDONNA K 786.2 Cough 12/19/2011 SALGUREO DO, LADONNA K 486 Pneumonia Unspecified 12/19/2011 SALGUERO DO, LADONNA K 786.2 Cough 12/19/2011 SALGUERO DO, LADONNA K 486 Pneumonia Unspecified 12/19/2011 SALGUERO DO, LADONNA K 786.2 Cough 12/19/2011 SALGUERO DO, LADONNA K 486 Pneumonia Unspecified 12/19/2011 SALGUERO DO, LADONNA K 786.2 Cough 12/19/2011 MADL LIQUOR MAKER, ETELVINA L 486 Pneumonia Unspecified 12/19/2011 MADL LIQUOR MAKER, ETELVINA L 786.2 Cough 12/19/2011 MADL LIQUOR MAKER, ETELVINA L 486 Pneumonia Unspecified 12/19/2011 MADL LIQUOR MAKER, ETELVINA L 786.2 Cough 12/19/2011 MADL LIQUOR MAKER, ETELVINA L 486 Pneumonia Unspecified 12/19/2011 MADL LIQUOR MAKER, ETELVINA L 786.2 Cough 12/19/2011 SALGUERO DO, LADONNA K 486 Pneumonia Unspecified 12/19/2011 SALGUERO DO, LADONNA K 786.2 Cough 12/19/2011 SALGUERO DO, LADONNA K 486 Pneumonia Unspecified 12/19/2011 SALGUERO DO, LADONNA K 786.2 Cough 12/19/2011 MADL LIQUOR MAKER, ETELVINA L 486 Pneumonia Unspecified 12/19/2011 MADL LIQUOR MAKER, ETELVINA L 786.2 Cough 12/19/2011 MADL LIQUOR MAKER, ETELVINA L 486 Pneumonia Unspecified 12/19/2011 MADL LIQUOR MAKER, ETELVINA L 786.2 Cough 12/19/2011 MADL LIQUOR MAKER, ETELVINA L 486 Pneumonia Unspecified 12/19/2011 MADL LIQUOR MAKER, ETELVINA L 786.2 Cough 12/19/2011 MADL LIQUOR MAKER, ETELVINA L 486 Pneumonia Unspecified 12/19/2011 MADL LIQUOR MAKER, ETELVINA L 786.2 Cough 12/19/2011 MADL LIQUOR MAKER, ETELVINA L 486 Pneumonia Unspecified 12/19/2011 MADL LIQUOR MAKER, ETELVINA L 786.2 Cough 12/19/2011 MADL LIQUOR MAKER, ETELVINA L 486 Pneumonia Unspecified 12/19/2011 MADL LIQUOR MAKER, ETELVINA L 786.2 Cough 12/19/2011 MADL LIQUOR MAKER, ETELVINA L 486 Pneumonia Unspecified 12/19/2011 MADL LIQUOR MAKER, ETELVINA L 786.2 Cough 12/19/2011 SALGUERO DO, LADONNA K 486 Pneumonia Unspecified 12/19/2011 SALGUERO DO, LADONNA K 786.2 Cough 12/19/2011 SALGUERO DO, LADONNA K 486 Pneumonia Unspecified 12/19/2011 SALGUERO DO, LADONNA K 786.2 Cough 12/19/2011 MADL LIQUOR MAKER, ETELVINA L 486 Pneumonia Unspecified 12/19/2011 MADL LIQUOR MAKER, ETELVINA L 786.2 Cough 12/19/2011 SALGUERO DO, LADONNA K 486 Pneumonia Unspecified 12/19/2011 SALGUERO DO, LADONNA K 786.2 Cough 12/19/2011 MADL LIQUOR MAKER, ETELVINA L 486 Pneumonia Unspecified 12/19/2011 MADL LIQUOR MAKER, ETELVINA L 786.2 Cough 01/06/2012 MORGAN HARRIS LAURIE S 491.9 BRONCHITIS, CHRONIC UNSPEC 01/06/2012 PALOMA MORA APRNNDA S 780.79 MALAISE AND FATIGUE 01/06/2012 491.9 Bronchitis, Chronic Unspec 01/06/2012 780.79 Malaise And Fatigue 01/06/2012 MORGAN LIQUOR MAKER, LAURIE S 491.9 Bronchitis, Chronic Unspec 01/06/2012 MORGAN LIQUOR MAKER, LAURIE S 780.79 Malaise And Fatigue 01/06/2012 MORGAN LIQUOR MAKER, LAURIE S 491.9 Bronchitis, Chronic Unspec 01/06/2012 MORGAN LIQUOR MAKER, LAURIE S 780.79 Malaise And Fatigue 01/06/2012 [...] K 780.79 Malaise And Fatigue 01/06/2012 MADL LIQUOR MAKER, ETELVINA L 491.9 Bronchitis, Chronic Unspec 01/06/2012 MADL LIQUOR MAKER, ETELVINA L 780.79 Malaise And Fatigue 01/06/2012 MADL LIQUOR MAKER, ETELVINA L 491.9 Bronchitis, Chronic Unspec 01/06/2012 MADL LIQUOR MAKER, ETELVINA L 780.79 Malaise And Fatigue 01/06/2012 MADL LIQUOR MAKER, ETELVINA L 491.9 Bronchitis, Chronic Unspec 01/06/2012 MADL LIQUOR MAKER, ETELVINA L 780.79 Malaise And Fatigue 01/06/2012 SALGUERO DO, LADONNA K 491.9 Bronchitis, Chronic Unspec 01/06/2012 SALGUERO DO, LADONNA K 780.79 Malaise And Fatigue 01/06/2012 SALGUERO DO, LADONNA K 491.9 Bronchitis, Chronic Unspec 01/06/2012 SALGUERO DO, LADONNA K 780.79 Malaise And Fatigue 01/06/2012 MADL LIQUOR MAKER, ETELVINA L 491.9 Bronchitis, Chronic Unspec 01/06/2012 MADL LIQUOR MAKER, ETELVNIA L 780.79 Malaise And Fatigue 01/06/2012 MADL LIQUOR MAKER, ETELVINA L 491.9 Bronchitis, Chronic Unspec 01/06/2012 MADL LIQUOR MAKER, ETELVINA L 780.79 Malaise And Fatigue 01/06/2012 MADL LIQUOR MAKER, ETELVINA L 491.9 Bronchitis, Chronic Unspec 01/06/2012 MADL LIQUOR MAKER, ETELVINA L 780.79 Malaise And Fatigue 01/06/2012 MADL LIQUOR MAKER, ETELVINA L 491.9 Bronchitis, Chronic Unspec 01/06/2012 MADL LIQUOR MAKER, ETELVINA L 780.79 Malaise And Fatigue 01/06/2012 MADL LIQUOR MAKER, ETELVINA L 491.9 Bronchitis, Chronic Unspec 01/06/2012 MADL LIQUOR MAKER, ETELVINA L 780.79 Malaise And Fatigue 01/06/2012 MADL LIQUOR MAKER, ETELVINA L 491.9 Bronchitis, Chronic Unspec 01/06/2012 MADL LIQUOR MAKER, ETELVINA L 780.79 Malaise And Fatigue 01/06/2012 MADL LIQUOR MAKER, ETELVINA L 491.9 Bronchitis, Chronic Unspec 01/06/2012 MADL LIQUOR MAKER, ETELVINA L 780.79 Malaise And Fatigue 01/06/2012 SALGUERO DO, LADONNA K 491.9 Bronchitis, Chronic Unspec 01/06/2012 SALGUERO DO, LADONNA K 780.79 Malaise And Fatigue 01/06/2012 SALGUERO DO, LADONNA K 491.9 Bronchitis, Chronic Unspec 01/06/2012 SALGUERO DO, LADONNA K 780.79 Malaise And Fatigue 01/06/2012 MADL LIQUOR MAKERETELVINA Bowser L 491.9 Bronchitis, Chronic Unspec 01/06/2012 MADL LIQUOR MAKER ETELVINA L 780.79 Malaise And Fatigue 01/06/2012 SALGUERO DO, LADONNA K 491.9 Bronchitis, Chronic Unspec 01/06/2012 SALGUERO DO, LADONNA K 780.79 Malaise And Fatigue 01/06/2012 MADL LIQUOR MAKER, ETELVINA L 491.9 Bronchitis, Chronic Unspec 01/06/2012 HUGOL LIQUOR MAKER ETELVINA L 780.79 Malaise And Fatigue 01/30/2012 [...] NOS 01/30/2012 Ot 414.01 CORONARY ATHEROSCLEROSIS OF [place] CORON 01/30/2012 Ot 424.1 AORTIC VALVE DISORDER [...] DISORDER 02/02/2012 Ot 414.01 CORONARY ATHEROSCLEROSIS OF [place] CORON 02/02/2012 Ot 458.9 HYPOTENSION NOS 02/02/2012 [...] SALGUERO DO, LADONNA K 728.88 Rhabdomyolysis 02/04/2012 SALGUEOR DO, LADONNA K 995.1 Angioneurotic Edema Not Elsewhere Classified 02/04/2012 MADL LIQUOR MAKER, ETELVINA L 728.88 Rhabdomyolysis 02/04/2012 MADL LIQUOR MAKER, ETELVINA L 995.1 Angioneurotic Edema Not Elsewhere Classified 02/04/2012 MADL LIQUOR MAKER, ETELVINA L 728.88 Rhabdomyolysis 02/04/2012 MADL LIQUOR MAKER, ETELVINA L 995.1 Angioneurotic Edema Not Elsewhere Classified 02/04/2012 MADL LIQUOR MAKER, ETELVINA L 728.88 Rhabdomyolysis 02/04/2012 MADL LIQUOR MAKER, ETELVINA L 995.1 Angioneurotic Edema Not Elsewhere Classified 02/04/2012 SALGUERO DO, LADONNA K 728.88 Rhabdomyolysis 02/04/2012 SALGUERO DO, LADONNA K 995.1 Angioneurotic Edema Not Elsewhere Classified 02/04/2012 SALGUERO DO, LADONNA K 728.88 Rhabdomyolysis 02/04/2012 SALGUERO DO, LADONNA K 995.1 Angioneurotic Edema Not Elsewhere Classified 02/04/2012 MADL LIQUOR MAKER, ETELVINA L 728.88 Rhabdomyolysis 02/04/2012 MADL LIQUOR MAKER, ETELVINA L 995.1 Angioneurotic Edema Not Elsewhere Classified 02/04/2012 MADL LIQUOR MAKER, ETELVINA L 728.88 Rhabdomyolysis 02/04/2012 MADL LIQUOR MAKER, ETELVINA L 995.1 Angioneurotic Edema Not Elsewhere Classified 02/04/2012 MADL LIQUOR MAKER, ETELVINA L 728.88 Rhabdomyolysis 02/04/2012 MADL LIQUOR MAKER, ETELVINA L 995.1 Angioneurotic Edema Not Elsewhere Classified 02/04/2012 MADL LIQUOR MAKER, ETELVINA L 728.88 Rhabdomyolysis 02/04/2012 MADL LIQUOR MAKER, ETELVINA L 995.1 Angioneurotic Edema Not Elsewhere Classified 02/04/2012 MADL LIQUOR MAKER, ETELVINA L 728.88 Rhabdomyolysis 02/04/2012 MADL LIQUOR MAKER, ETELVINA L 995.1 Angioneurotic Edema Not Elsewhere Classified 02/04/2012 MADL LIQUOR MAKER, ETELVINA L 728.88 Rhabdomyolysis 02/04/2012 MADL LIQUOR MAKER, ETELVINA L 995.1 Angioneurotic Edema Not Elsewhere Classified 02/04/2012 MADL LIQUOR MAKER, ETELVINA L 728.88 Rhabdomyolysis 02/04/2012 MADL LIQUOR MAKER, ETELVINA L 995.1 Angioneurotic Edema Not Elsewhere Classified 02/04/2012 SALGUERO DO, LADONNA K 728.88 Rhabdomyolysis 02/04/2012 SALGUERO DO, LADONNA K 995.1 Angioneurotic Edema Not Elsewhere Classified 02/04/2012 SALGUERO DO, LADONNA K 728.88 Rhabdomyolysis 02/04/2012 SALGUERO DO, LADONNA K 995.1 Angioneurotic Edema Not Elsewhere Classified 02/04/2012 MADL LIQUOR MAKER, ETELVINA L 728.88 Rhabdomyolysis 02/04/2012 MADL LIQUOR MAKER, ETELVINA L 995.1 Angioneurotic Edema Not Elsewhere Classified 02/04/2012 SALGUERO DO, LADONNA K 728.88 Rhabdomyolysis 02/04/2012 SALGUERO DO, LADONNA K 995.1 Angioneurotic Edema Not Elsewhere Classified 02/04/2012 MADL LIQUOR MAKER, ETELVINA L 728.88 Rhabdomyolysis 02/04/2012 MADL LIQUOR MAKER, ETELVINA L 995.1 Angioneurotic Edema Not Elsewhere [...] DO, LADONNA K 782.3 EDEMA 02/06/2012 MADL LIQUOR MAKER, ETELVINA L 782.3 EDEMA 02/06/2012 MADL LIQUOR MAKER, ETELVINA L 782.3 EDEMA 02/06/2012 MADL LIQUOR MAKER, ETELVINA L 782.3 EDEMA 02/06/2012 SALGUERO DO, LADONNA K 782.3 EDEMA 02/06/2012 SALGUERO DO, LADONNA K 782.3 EDEMA 02/06/2012 MADL LIQUOR MAKER, ETELVINA L 782.3 EDEMA 02/06/2012 MADL LIQUOR MAKER, ETELVINA L 782.3 EDEMA 02/06/2012 MADL LIQUOR MAKER, ETELVINA L 782.3 EDEMA 02/06/2012 MADL LIQUOR MAKER, ETELVINA L 782.3 EDEMA 02/06/2012 MADL LIQUOR MAKER, ETELVINA L 782.3 EDEMA 02/06/2012 MADL LIQUOR MAKER, ETELVINA L 782.3 EDEMA 02/06/2012 MADL LIQUOR MAKER, ETELVINA L 782.3 EDEMA 02/06/2012 SALGUERO DO, LADONNA K 782.3 EDEMA 02/06/2012 SALGUERO DO, LADONNA K 782.3 EDEMA 02/06/2012 MADL LIQUOR MAKER, ETELVINA L 782.3 EDEMA 02/06/2012 SALGUERO DO, LADONNA K 782.3 EDEMA 02/06/2012 MADL LIQUOR MAKER, ETELVINA L 782.3 EDEMA 02/11/2012 MORGAN LIQUOR MAKER, LAURIE S 079.99 VIRAL SYNDROME 02/11/2012 079.99 Viral Syndrome 02/11/2012 MORGAN LIQUOR MAKER, LAURIE S 079.99 Viral Syndrome 02/11/2012 MORGAN LIQUOR MAKER, LAURIE S 079.99 Viral Syndrome 02/11/2012 ROMELIA [...] DOA K 079.99 Viral Syndrome 02/11/2012 MADL LIQUOR MAKER, ETELVINA L 079.99 Viral Syndrome 02/11/2012 MADL LIQUOR MAKER, ETELVINA L 079.99 Viral Syndrome 02/11/2012 MADL LIQUOR MAKER, ETELVINA L 079.99 Viral Syndrome 02/11/2012 NOEMY PRAKASH LADONNA K 079.99 Viral Syndrome 02/11/2012 SALGUERO DO LADONNA K 079.99 Viral Syndrome 02/11/2012 MADL LIQUOR MAKER, ETELVINA L 079.99 Viral Syndrome 02/11/2012 MADL LIQUOR MAKER, ETELVINA L 079.99 Viral Syndrome 02/11/2012 MADL LIQUOR MAKER, ETELVINA L 079.99 Viral Syndrome 02/11/2012 MADL LIQUOR MAKER, ETELVINA L 079.99 Viral Syndrome 02/11/2012 MADL LIQUOR MAKER, ETELVINA L 079.99 Viral Syndrome 02/11/2012 MADL LIQUOR MAKER, ETELVINA L 079.99 Viral Syndrome 02/11/2012 MADL LIQUOR MAKER, ETELVINA L 079.99 Viral Syndrome 02/11/2012 SALGUERO DO, LADONNA K 079.99 Viral Syndrome 02/11/2012 SALGUERO DO, LADONNA K 079.99 Viral Syndrome 02/11/2012 MADL LIQUOR MAKER, ETELVINA L 079.99 Viral Syndrome 02/11/2012 SALGUERO DO, LADONNA K 079.99 Viral Syndrome 02/11/2012 MADL LIQUOR MAKER, ETELVINA L 079.99 Viral Syndrome 02/17/2012 SUSHANT [...] LADONNA K 783.21 Weight Loss 02/17/2012 MADL LIQUOR MAKER, ETELVINA L 783.21 Weight Loss 02/17/2012 MADL LIQUOR MAKER, ETELVINA L 783.21 Weight Loss 02/17/2012 MADL LIQUOR MAKER, ETELVINA L 783.21 Weight Loss 02/17/2012 SALGUERO DO, LADONNA K 783.21 Weight Loss 02/17/2012 SALGUERO DO, LADONNA K 783.21 Weight Loss 02/17/2012 MADL LIQUOR MAKER, ETELVINA L 783.21 Weight Loss 02/17/2012 MADL LIQUOR MAKER, ETELVINA L 783.21 Weight Loss 02/17/2012 MADL LIQUOR MAKER, ETELVINA L 783.21 Weight Loss 02/17/2012 MADL LIQUOR MAKER, ETELVINA L 783.21 Weight Loss 02/17/2012 MADL LIQUOR MAKER, ETELVINA L 783.21 Weight Loss 02/17/2012 MADL LIQUOR MAKER, ETELVINA L 783.21 Weight Loss 02/17/2012 MADL LIQUOR MAKER, ETELVINA L 783.21 Weight Loss 02/17/2012 SALGUERO DO, LADONNA K 783.21 Weight Loss 02/17/2012 SALGUERO DO, LADONNA K 783.21 Weight Loss 02/17/2012 MADL LIQUOR MAKER, ETELVINA L 783.21 Weight Loss 02/17/2012 SALGUERO DO, LADONNA K 783.21 Weight Loss 02/17/2012 MADL LIQUOR MAKER, ETELVINA L 783.21 Weight Loss 02/24/2012 MORGAN [...] DO, LADONNA K 787.91 Diarrhea 02/24/2012 MADL LIQUOR MAKER, ETELVINA L 787.91 Diarrhea 02/24/2012 MADL LIQUOR MAKER, ETELVINA L 787.91 Diarrhea 02/24/2012 MADL LIQUOR MAKER, ETELVINA L 787.91 Diarrhea 02/24/2012 SALGUERO DO, LADONNA K 787.91 Diarrhea 02/24/2012 SALGUERO DO, LADONNA K 787.91 Diarrhea 02/24/2012 MADL LIQUOR MAKER, ETELVINA L 787.91 Diarrhea 02/24/2012 MADL LIQUOR MAKER, ETELVINA L 787.91 Diarrhea 02/24/2012 MADL LIQUOR MAKER, ETELVINA L 787.91 Diarrhea 02/24/2012 MADL LIQUOR MAKER, ETELVINA L 787.91 Diarrhea 02/24/2012 MADL LIQUOR MAKER, ETELVINA L 787.91 Diarrhea 02/24/2012 MADL LIQUOR MAKER, ETELVINA L 787.91 Diarrhea 02/24/2012 MADL LIQUOR MAKER, ETELVINA L 787.91 Diarrhea 02/24/2012 SALGUERO DO, LADONNA K 787.91 Diarrhea 02/24/2012 SALGUERO DO, LADONNA K 787.91 Diarrhea 02/24/2012 MADL LIQUOR MAKER, ETELVINA L 787.91 Diarrhea 02/24/2012 SALGUERO DO, LADONNA K 787.91 Diarrhea 02/24/2012 MADL LIQUOR MAKER, ETELVINA L 787.91 Diarrhea 04/07/2012 MORGAN LIQUOR MAKERLAURIE S 787.20 DYSPHAGIA, UNSPECIFIED 04/07/2012 787.20 Dysphagia, Unspecified 04/07/2012 MORGAN LIQUOR MAKERLAURIE S 787.20 Dysphagia, Unspecified 04/07/2012 MORGAN LIQUOR MAKERLAURIE S 787.20 Dysphagia, Unspecified 04/07/2012 AMADO OLVERA, ROMELIA 787.20 Dysphagia, Unspecified 04/07/2012 BYRON BOSS MD 787.20 Dysphagia, Unspecified 04/07/2012 787.20 Dysphagia, Unspecified 04/07/2012 787.20 Dysphagia, Unspecified 04/07/2012 787.20 Dysphagia, Unspecified 04/07/2012 787.20 Dysphagia, Unspecified 04/07/2012 BYRON BSOS MD 787.20 Dysphagia, Unspecified 04/07/2012 BYRON BOSS [...] LADONNA K 787.20 Dysphagia, Unspecified 04/07/2012 MADL LIQUOR MAKER, ETELVINA L 787.20 Dysphagia, Unspecified 04/07/2012 MADL LIQUOR MAKER, ETELVINA L 787.20 Dysphagia, Unspecified 04/07/2012 MADL LIQUOR MAKER, ETELVINA L 787.20 Dysphagia, Unspecified 04/07/2012 SALGUERO DO, LADONNA K 787.20 Dysphagia, Unspecified 04/07/2012 SALGUERO DO, LADONNA K 787.20 Dysphagia, Unspecified 04/07/2012 MADL LIQUOR MAKER, ETELVINA L 787.20 Dysphagia, Unspecified 04/07/2012 MADL LIQUOR MAKER, ETELVINA L 787.20 Dysphagia, Unspecified 04/07/2012 MADL LIQUOR MAKER, ETELVINA L 787.20 Dysphagia, Unspecified 04/07/2012 MADL LIQUOR MAKER, ETELVINA L 787.20 Dysphagia, Unspecified 04/07/2012 MADL LIQUOR MAKER, ETELVINA L 787.20 Dysphagia, Unspecified 04/07/2012 MADL LIQUOR MAKER, ETELVINA L 787.20 Dysphagia, Unspecified 04/07/2012 MADL LIQUOR MAKER, ETELVINA L 787.20 Dysphagia, Unspecified 04/07/2012 SALGUERO DO, LADONNA K 787.20 Dysphagia, Unspecified 04/07/2012 SALGUERO DO, LADONNA K 787.20 Dysphagia, Unspecified 04/07/2012 MADL LIQUOR MAKER, ETELVINA L 787.20 Dysphagia, Unspecified 04/07/2012 SALGUERO DO, LADONNA K 787.20 Dysphagia, Unspecified 04/07/2012 MADL LIQUOR MAKER, ETELVINA L 787.20 Dysphagia, Unspecified 04/16/2012 Ot [...] S V03.82 Ppv23 (pneumovax) Dx 09/07/2012 LAURIE MOAR APRN S V76.10 Breast Cancer Screening 09/07/2012 [...] Cervical Cancer Screening (pap Smear) 09/07/2012 MADMaxine LIQUOR MAKER, ETELVINA L V03.82 Ppv23 (pneumovax) Dx 09/07/2012 MADMaxine LIQUOR MAKER, ETELVINA L V76.10 Breast Cancer Screening 09/07/2012 MADL LIQUOR MAKER, ETELVINA L V76.12 Mammogram Screening 09/07/2012 MADMaxine LIQUOR MAKER, ETELVINA L V76.2 Cervical Cancer Screening (pap Smear) 09/07/2012 MADMaxine LIQUOR MAKER, ETELVINA L V03.82 Ppv23 (pneumovax) Dx 09/07/2012 MADMaxine LIQUOR MAKER, ETELVINA L V76.10 Breast Cancer Screening 09/07/2012 MADL LIQUOR MAKER, ETELVINA L V76.12 Mammogram Screening 09/07/2012 MADL LIQUOR MAKER, ETELVINA L V76.2 Cervical Cancer Screening (pap Smear) 09/07/2012 MADL LIQUOR MAKER, ETELVINA L V03.82 Ppv23 (pneumovax) Dx 09/07/2012 MADL LIQUOR MAKER, ETELVINA L V76.10 Breast Cancer Screening 09/07/2012 MADL LIQUOR MAKER, ETELVINA L V76.12 Mammogram Screening 09/07/2012 MADL LIQUOR MAKER, ETELVINA L V76.2 Cervical Cancer Screening (pap [...] Cervical Cancer Screening (pap Smear) 09/07/2012 MADL LIQUOR MAKER, ETELVINA L V03.82 Ppv23 (pneumovax) Dx 09/07/2012 MADL LIQUOR MAKER, ETELVINA L V76.10 Breast Cancer Screening 09/07/2012 MADL LIQUOR MAKER, ETELVINA L V76.12 Mammogram Screening 09/07/2012 MADL LIQUOR MAKER, ETELVINA L V76.2 Cervical Cancer Screening (pap Smear) 09/07/2012 MADL LIQUOR MAKER, ETELVINA L V03.82 Ppv23 (pneumovax) Dx 09/07/2012 MADL LIQUOR MAKER, ETELVINA L V76.10 Breast Cancer Screening 09/07/2012 MADL LIQUOR MAKER, ETELVINA L V76.12 Mammogram Screening 09/07/2012 MADL LIQUOR MAKER, ETELVINA L V76.2 Cervical Cancer Screening (pap Smear) 09/07/2012 MADL LIQUOR MAKER, ETELVINA L V03.82 Ppv23 (pneumovax) Dx 09/07/2012 MAD LIQUOR MAKER, ETELVINA L V76.10 Breast Cancer Screening 09/07/2012 MAD LIQUOR MAKER, ETELVINA L V76.12 Mammogram Screening 09/07/2012 MAD LIQUOR MAKER, ETELVINA L V76.2 Cervical Cancer Screening (pap Smear) 09/07/2012 MAD LIQUOR MAKER, ETELVINA L V03.82 Ppv23 (pneumovax) Dx 09/07/2012 MAD LIQUOR MAKER, ETELVINA L V76.10 Breast Cancer Screening 09/07/2012 [facility] LIQUOR MAKER, ETELVINA L V76.12 Mammogram Screening 09/07/2012 [facility] LIQUOR MAKER, ETELVINA L V76.2 Cervical Cancer Screening (pap Smear) 09/07/2012 MAD LIQUOR MAKER, ETELVINA L V03.82 Ppv23 (pneumovax) Dx 09/07/2012 [facility] LIQUOR MAKER, ETELVINA L V76.10 Breast Cancer Screening 09/07/2012 [facility] LIQUOR MAKER, ETELVINA L V76.12 Mammogram Screening 09/07/2012 [facility] LIQUOR MAKER, ETELVINA L V76.2 Cervical Cancer Screening (pap Smear) 09/07/2012 MAD LIQUOR MAKER, ETELVINA L V03.82 Ppv23 (pneumovax) Dx 09/07/2012 MAD LIQUOR MAKER, ETELVINA L V76.10 Breast Cancer Screening 09/07/2012 [facility] LIQUOR MAKER, ETELVINA L V76.12 Mammogram Screening 09/07/2012 [facility] LIQUOR MAKER, ETELVINA L V76.2 Cervical Cancer Screening (pap Smear) 09/07/2012 MAD LIQUOR MAKER, ETELVINA L V03.82 Ppv23 (pneumovax) Dx 09/07/2012 MAD LIQUOR MAKER, ETELVINA L V76.10 Breast Cancer Screening 09/07/2012 MAD LIQUOR MAKER, ETELVINA L V76.12 Mammogram Screening 09/07/2012 MAD LIQUOR MAKER, ETELVINA L V76.2 Cervical Cancer Screening (pap [...] Cervical Cancer Screening (pap Smear) 09/07/2012 MADL LIQUOR MAKERHAMMADA L V03.82 Ppv23 (pneumovax) Dx 09/07/2012 MADL LIQUOR MAKER, ETELVINA L V76.10 Breast Cancer Screening 09/07/2012 MADL LIQUOR MAKER, ETELVINA L V76.12 Mammogram Screening 09/07/2012 MADL LIQUOR MAKERHAMMAD BowserA L V76.2 Cervical Cancer Screening (pap Smear) 09/07/2012 NOEMY PRAKASH LADONNA K V03.82 Ppv23 (pneumovax) Dx 09/07/2012 TERE SALGUERO DOA K V76.10 Breast Cancer Screening 09/07/2012 TERE SALGUERO DOA K V76.12 Mammogram Screening 09/07/2012 TERE SALGUERO DOA K V76.2 Cervical Cancer Screening (pap Smear) 09/07/2012 MADL LIQUOR MAKER, ETELVINA L V03.82 Ppv23 (pneumovax) Dx 09/07/2012 MADL LIQUOR MAKER, ETELVINA L V76.10 Breast Cancer Screening 09/07/2012 MADL LIQUOR MAKER, ETELVINA L V76.12 Mammogram Screening 09/07/2012 MADL LIQUOR MAKER, ETELVINA L V76.2 Cervical Cancer Screening (pap Smear) 09/08/2012 Ot 305.1 TOBACCO USE DISORDER 09/08/2012 Ot 466.0 ACUTE BRONCHITIS 09/08/2012 Ot 786.2 COUGH 09/19/2012 Ot 305.1 TOBACCO USE DISORDER 09/19/2012 Ot 491.9 CHRONIC BRONCHITIS NOS 09/19/2012 Ot 780.79 OTH MALAISE FATIGUE 10/22/2012 MORGAN LIQUOR MAKER, LAURIE S V58.69 high risk medication 10/22/2012 [...] medication for a long time 10/22/2012 MADL LIQUOR MAKER, ETELVINA L V58.69 taking high-risk medication for a long time 10/22/2012 MADL LIQUOR MAKERHAMMADA L V58.69 taking high-risk medication for a long time 10/22/2012 LADONNA SALGUERO DO K V58.69 taking high-risk medication for a long time 10/22/2012 LADONNA SALGUERO DO K V58.69 taking high-risk medication for a long time 10/22/2012 MADL LIQUOR MAKERETELVINA L V58.69 taking high-risk medication for a long time 10/22/2012 MADL LIQUOR MAKER ETELVINA L V58.69 taking high-risk medication for a long time 10/22/2012 MADL LIQUOR MAKERHAMMADA L V58.69 taking high-risk medication for a long time 10/22/2012 MADL LIQUOR MAKERHAMMADA L V58.69 taking high-risk medication for a long time 10/22/2012 MADL LIQUOR MAKERHAMMAD BowserA L V58.69 taking high-risk medication for a long time 10/22/2012 MADL LIQUOR MAKERHAMMADA L V58.69 taking high-risk medication for a long time 10/22/2012 MADL LIQUOR MAKER ETELVINA L V58.69 taking high-risk medication for a long time 10/22/2012 LADONNA SALGUERO DO K V58.69 taking high-risk medication for a long time 10/22/2012 LADONNA SALGUERO DO K V58.69 taking high-risk medication for a long time 10/22/2012 MADL LIQUOR MAKERETELVINA Bowser L V58.69 taking high-risk medication for a long time 10/22/2012 LADONNA SALGUERO DO K V58.69 taking high-risk medication for a long time 10/22/2012 MADL LIQUOR MAKERHAMMAD BowserA L V58.69 taking high-risk medication for a long time 10/26/2012 Ot 250.00 DIAB MELVA WO COMPL, TYPE II OR UNSPEC TY 10/26/2012 Ot 278.00 OBESITY, NOS 10/26/2012 Ot 300.00 ANXIETY STATE NOS 10/26/2012 Ot 305.1 TOBACCO USE DISORDER 10/26/2012 Ot 311 DEPRESSIVE DISORDER NEC 10/26/2012 Ot 401.9 HYPERTENSION NOS 10/26/2012 Ot 414.01 CORONARY ATHEROSCLEROSIS OF [place] CORON 10/26/2012 Ot 491.21 OBSTR CHRONIC BRONCHITIS, [...] K 465.9 UPPER RESPIRATORY INFECTION 11/01/2012 MADL LIQUOR MAKER, ETELVINA L 465.9 UPPER RESPIRATORY INFECTION 11/01/2012 MADL LIQUOR MAKER, ETELVINA L 465.9 UPPER RESPIRATORY INFECTION 11/01/2012 MADL LIQUOR MAKER, ETELVINA L 465.9 UPPER RESPIRATORY INFECTION 11/01/2012 SALGUERO DO, LADONNA K 465.9 UPPER RESPIRATORY INFECTION 11/01/2012 SALGUERO DO, LADONNA K 465.9 UPPER RESPIRATORY INFECTION 11/01/2012 MADL LIQUOR MAKER, ETELVINA L 465.9 UPPER RESPIRATORY INFECTION 11/01/2012 MADL LIQUOR MAKER, ETELVINA L 465.9 UPPER RESPIRATORY INFECTION 11/01/2012 MADL LIQUOR MAKER, ETELVINA L 465.9 UPPER RESPIRATORY INFECTION 11/01/2012 MADL LIQUOR MAKER, ETELVINA L 465.9 UPPER RESPIRATORY INFECTION 11/01/2012 MADL LIQUOR MAKER, ETELVINA L 465.9 UPPER RESPIRATORY INFECTION 11/01/2012 MADL LIQUOR MAKER, ETELVINA L 465.9 UPPER RESPIRATORY INFECTION 11/01/2012 MADL LIQUOR MAKER, ETELVINA L 465.9 UPPER RESPIRATORY INFECTION 11/01/2012 SALGUERO DO, LADONNA K 465.9 UPPER RESPIRATORY INFECTION 11/01/2012 SALGUERO DO, LADONNA K 465.9 UPPER RESPIRATORY INFECTION 11/01/2012 MADL LIQUOR MAKER, ETELVINA L 465.9 UPPER RESPIRATORY INFECTION 11/01/2012 SALGUERO DO, LADONNA K 465.9 UPPER RESPIRATORY INFECTION 11/01/2012 MADL LIQUOR MAKER, ETELVINA L 465.9 UPPER RESPIRATORY INFECTION 11/13/2012 Ot 250.00 DIAB MELVA WO COMPL, TYPE II OR UNSPEC TY 11/13/2012 Ot 272.4 HYPERLIPIDEMIA NEC/NOS 11/13/2012 Ot 278.00 OBESITY, NOS 11/13/2012 Ot 300.00 ANXIETY STATE NOS 11/13/2012 Ot 305.1 TOBACCO USE DISORDER 11/13/2012 Ot 311 DEPRESSIVE DISORDER NEC 11/13/2012 Ot 401.9 HYPERTENSION NOS 11/13/2012 Ot 414.01 CORONARY ATHEROSCLEROSIS OF [place] CORON 11/13/2012 Ot 458.9 HYPOTENSION NOS 11/13/2012 [...] DO, LADONNA K 244.9 HYPOTHYROIDISM 12/02/2012 MADL LIQUOR MAKER, ETELVINA L 244.9 HYPOTHYROIDISM 12/02/2012 MADL LIQUOR MAKER, ETELVINA L 244.9 HYPOTHYROIDISM 12/02/2012 MADL LIQUOR MAKER, ETELVINA L 244.9 HYPOTHYROIDISM 12/02/2012 SALGUERO DO, LADONNA K 244.9 HYPOTHYROIDISM 12/02/2012 SALGUERO DO, LADONNA K 244.9 HYPOTHYROIDISM 12/02/2012 MADL LIQUOR MAKER, ETELVINA L 244.9 HYPOTHYROIDISM 12/02/2012 MADL LIQUOR MAKER, ETELVINA L 244.9 HYPOTHYROIDISM 12/02/2012 MADL LIQUOR MAKER, ETELVINA L 244.9 HYPOTHYROIDISM 12/02/2012 MADL LIQUOR MAKER, ETELVINA L 244.9 HYPOTHYROIDISM 12/02/2012 MADL LIQUOR MAKER, ETELVINA L 244.9 HYPOTHYROIDISM 12/02/2012 MADL LIQUOR MAKER, ETELVINA L 244.9 HYPOTHYROIDISM 12/02/2012 MADL LIQUOR MAKER, ETELVINA L 244.9 HYPOTHYROIDISM 12/02/2012 SALGUERO DO, LADONNA K 244.9 HYPOTHYROIDISM 12/02/2012 SALGUERO DO, LADONNA K 244.9 HYPOTHYROIDISM 12/02/2012 MADL LIQUOR MAKER, ETELVINA L 244.9 HYPOTHYROIDISM 12/02/2012 SALGUERO DO, LADONNA K 244.9 HYPOTHYROIDISM 12/02/2012 MADL LIQUOR MAKER, ETELVINA L 244.9 HYPOTHYROIDISM 12/26/2012 Ot 305.1 [...] DO LADONNA K 780.52 insomnia 02/08/2013 MADL LIQUOR MAKER, ETELVINA L 780.52 insomnia 02/08/2013 MADL LIQUOR MAKER, ETELVINA L 780.52 insomnia 02/08/2013 MADL LIQUOR MAKER, ETELVINA L 780.52 insomnia 02/08/2013 SALGUERO DO LADONNA K 780.52 insomnia 02/08/2013 SALGUERO DO, LADONNA K 780.52 insomnia 02/08/2013 MADL LIQUOR MAKER, ETELVINA L 780.52 insomnia 02/08/2013 MADL LIQUOR MAKER, ETELVINA L 780.52 insomnia 02/08/2013 MADL LIQUOR MAKER, ETELVINA L 780.52 insomnia 02/08/2013 MADL LIQUOR MAKER, ETELVINA L 780.52 insomnia 02/08/2013 MADL LIQUOR MAKER, ETELVINA L 780.52 insomnia 02/08/2013 MADL LIQUOR MAKER, ETELVINA L 780.52 insomnia 02/08/2013 MADL LIQUOR MAKER, ETELVINA L 780.52 insomnia 02/08/2013 SALGUERO DO LADONNA K 780.52 insomnia 02/08/2013 SALGUERO DO LADONNA K 780.52 insomnia 02/08/2013 MADL LIQUOR MAKER, ETELVINA L 780.52 insomnia 02/08/2013 SALGUERO DO, LADONNA K 780.52 insomnia 02/08/2013 MADL LIQUOR MAKER, ETELVINA L 780.52 insomnia 04/17/2013 REHAN OLVERA, [...] LADONNA K 719.07 EDEMA FOOT 06/03/2013 MADL LIQUOR MAKER, ETELVINA L 110.1 ONYCHOMYCOSIS 06/03/2013 MADL LIQUOR MAKER, ETELVINA L 719.07 EDEMA FOOT 06/03/2013 MADL LIQUOR MAKER, ETELVINA L 110.1 ONYCHOMYCOSIS 06/03/2013 MADL LIQUOR MAKER, ETELVINA L 719.07 EDEMA FOOT 06/03/2013 MADL LIQUOR MAKER, ETELVINA L 110.1 ONYCHOMYCOSIS 06/03/2013 MADL LIQUOR MAKER, ETELVINA L 719.07 EDEMA FOOT 06/03/2013 SALGUERO DO, LADONNA K 110.1 ONYCHOMYCOSIS 06/03/2013 SALGUERO DO, LADONNA K 719.07 EDEMA FOOT 06/03/2013 SALGUERO DO, LADONNA K 110.1 ONYCHOMYCOSIS 06/03/2013 SALGUERO DO, LADONNA K 719.07 EDEMA FOOT 06/03/2013 MADL LIQUOR MAKER, ETELVINA L 110.1 ONYCHOMYCOSIS 06/03/2013 MADL LIQUOR MAKER, ETELVINA L 719.07 EDEMA FOOT 06/03/2013 MADL LIQUOR MAKER, ETELVINA L 110.1 ONYCHOMYCOSIS 06/03/2013 MADL LIQUOR MAKER, ETELVINA L 719.07 EDEMA FOOT 06/03/2013 MADL LIQUOR MAKER, ETELVINA L 110.1 ONYCHOMYCOSIS 06/03/2013 MADL LIQUOR MAKER, ETELVINA L 719.07 EDEMA FOOT 06/03/2013 MADL LIQUOR MAKER, ETELVINA L 110.1 ONYCHOMYCOSIS 06/03/2013 MADL LIQUOR MAKER, ETELVINA L 719.07 EDEMA FOOT 06/03/2013 MADL LIQUOR MAKER, ETELVINA L 110.1 ONYCHOMYCOSIS 06/03/2013 MADL LIQUOR MAKER, ETELVINA L 719.07 EDEMA FOOT 06/03/2013 MADL LIQUOR MAKER, ETELVINA L 110.1 ONYCHOMYCOSIS 06/03/2013 MADL LIQUOR MAKER, ETELVINA L 719.07 EDEMA FOOT 06/03/2013 MADL LIQUOR MAKER, ETELVINA L 110.1 ONYCHOMYCOSIS 06/03/2013 MADL LIQUOR MAKER, ETELVINA L 719.07 EDEMA FOOT 06/03/2013 SALGUERO DO, LADONNA K 110.1 ONYCHOMYCOSIS 06/03/2013 SALGUERO DO, LADONNA K 719.07 EDEMA FOOT 06/03/2013 SALGUERO DO, LADONNA K 110.1 ONYCHOMYCOSIS 06/03/2013 SALGUERO DO, LADONNA K 719.07 EDEMA FOOT 06/03/2013 MADL LIQUOR MAKER, ETELVINA L 110.1 ONYCHOMYCOSIS 06/03/2013 MADL LIQUOR MAKER, ETELVINA L 719.07 EDEMA FOOT 06/03/2013 SALGUERO DO, LADONNA K 110.1 ONYCHOMYCOSIS 06/03/2013 SALGUERO DO, LADONNA K 719.07 EDEMA FOOT 06/03/2013 MADL LIQUOR MAKER, ETELVINA L 110.1 ONYCHOMYCOSIS 06/03/2013 MADL LIQUOR MAKER, ETELVINA L 719.07 EDEMA FOOT 08/03/2013 EDUARDO [...] BYRON BOSS MD M 311 depression 08/25/2013 YBRON BOSS MD 595.0 ACUTE CYSTITIS 08/25/2013 SALGUERO [...] LADONNA K 595.0 ACUTE CYSTITIS 08/25/2013 MADL LIQUOR MAKER, ETELVINA L 311 depression 08/25/2013 MADL LIQUOR MAKER, ETELVINA L 595.0 ACUTE CYSTITIS 08/25/2013 MADL LIQUOR MAKER, ETELVINA L 311 depression 08/25/2013 MADL LIQUOR MAKER, ETELVINA L 595.0 ACUTE CYSTITIS 08/25/2013 MADL LIQUOR MAKER, ETELVINA L 311 depression 08/25/2013 MADL LIQUOR MAKER, ETELVINA L 595.0 ACUTE CYSTITIS 08/25/2013 SALGUERO DO, LADONNA K 311 depression 08/25/2013 SALGUERO DO, LADONNA K 595.0 ACUTE CYSTITIS 08/25/2013 SALGUERO DO, LADONNA K 311 depression 08/25/2013 SALGUERO DO, LADONNA K 595.0 ACUTE CYSTITIS 08/25/2013 MADL LIQUOR MAKER, ETELVINA L 311 depression 08/25/2013 MADL LIQUOR MAKER, ETELVINA L 595.0 ACUTE CYSTITIS 08/25/2013 MADL LIQUOR MAKER, ETELVINA L 311 depression 08/25/2013 MADL LIQUOR MAKER, ETELVINA L 595.0 ACUTE CYSTITIS 08/25/2013 MADL LIQUOR MAKER, ETELVINA L 311 depression 08/25/2013 MADL LIQUOR MAKER, ETELVINA L 595.0 ACUTE CYSTITIS 08/25/2013 MADL LIQUOR MAKER, ETELVINA L 311 depression 08/25/2013 MADL LIQUOR MAKER, ETELVINA L 595.0 ACUTE CYSTITIS 08/25/2013 MADL LIQUOR MAKER, ETELVINA L 311 depression 08/25/2013 MADL LIQUOR MAKER, ETELVINA L 595.0 ACUTE CYSTITIS 08/25/2013 MADL LIQUOR MAKER, ETELVINA L 311 depression 08/25/2013 MADL LIQUOR MAKER, ETELVINA L 595.0 ACUTE CYSTITIS 08/25/2013 MADL LIQUOR MAKER, ETELVINA L 311 depression 08/25/2013 MADL LIQUOR MAKER, ETELVINA L 595.0 ACUTE CYSTITIS 08/25/2013 SALGUERO DO, LADONNA K 311 depression 08/25/2013 SALGUERO DO, LADONNA K 595.0 ACUTE CYSTITIS 08/25/2013 SALGUERO DO, LADONNA K 311 depression 08/25/2013 SALGUERO DO, LADONNA K 595.0 ACUTE CYSTITIS 08/25/2013 MADL LIQUOR MAKER, ETELVINA L 311 depression 08/25/2013 MADL LIQUOR MAKER, ETELVINA L 595.0 ACUTE CYSTITIS 08/25/2013 SALGUERO DO, LADONNA K 311 depression 08/25/2013 SALGUERO DO, LADONNA K 595.0 ACUTE CYSTITIS 08/25/2013 MADL LIQUOR MAKER, ETELVINA L 311 depression 08/25/2013 MADL LIQUOR MAKER, ETELVINA L 595.0 ACUTE CYSTITIS 09/02/2013 SALGUERO [...] LADONNA K 709.8 FISSURES SKIN 09/02/2013 MADL LIQUOR MAKER, ETELVINA L 709.8 FISSURES SKIN 09/02/2013 MADL LIQUOR MAKER, ETELVINA L 709.8 FISSURES SKIN 09/02/2013 MADL LIQUOR MAKER, ETELVINA L 709.8 FISSURES SKIN 09/02/2013 SALGUERO DO, LADONNA K 709.8 FISSURES SKIN 09/02/2013 SALGUERO DO, LADONNA K 709.8 FISSURES SKIN 09/02/2013 MADL LIQUOR MAKER, ETELVINA L 709.8 FISSURES SKIN 09/02/2013 MADL LIQUOR MAKER, ETELVINA L 709.8 FISSURES SKIN 09/02/2013 MADL LIQUOR MAKER, ETELVINA L 709.8 FISSURES SKIN 09/02/2013 MADL LIQUOR MAKER, ETELVINA L 709.8 FISSURES SKIN 09/02/2013 MADL LIQUOR MAKER, ETELVINA L 709.8 FISSURES SKIN 09/02/2013 MADL LIQUOR MAKER, ETELVINA L 709.8 FISSURES SKIN 09/02/2013 MADL LIQUOR MAKER, ETELVINA L 709.8 FISSURES SKIN 09/02/2013 SALGUERO DO, LADONNA K 709.8 FISSURES SKIN 09/02/2013 SALGUERO DO, LADONNA K 709.8 FISSURES SKIN 09/02/2013 MADL LIQUOR MAKER, ETELVINA L 709.8 FISSURES SKIN 09/02/2013 SALGUERO DO, LADONNA K 709.8 FISSURES SKIN 09/02/2013 MADL LIQUOR MAKER, ETELVINA L 709.8 FISSURES SKIN 09/22/2013 BYRON [...] 788.1 pain during urination (dysuria) 09/22/2013 MADL LIQUOR MAKER, ETELVINA L 788.1 pain during urination (dysuria) 09/22/2013 MADL LIQUOR MAKER, ETELVINA L 788.1 pain during urination (dysuria) 09/22/2013 MADL LIQUOR MAKER, ETELVINA L 788.1 pain during urination (dysuria) 09/22/2013 SALGUERO DO, LADONNA K 788.1 PAIN DURING URINATION (DYSURIA) 09/22/2013 SALGUERO DO, LADONNA K 788.1 PAIN DURING URINATION (DYSURIA) 09/22/2013 MADL LIQUOR MAKER, ETELVINA L 788.1 PAIN DURING URINATION (DYSURIA) 09/22/2013 MADL LIQUOR MAKER, ETELVINA L 788.1 PAIN DURING URINATION (DYSURIA) 09/22/2013 MADL LIQUOR MAKER, ETELVINA L 788.1 PAIN DURING URINATION (DYSURIA) 09/22/2013 MADL LIQUOR MAKER, ETELVINA L 788.1 PAIN DURING URINATION (DYSURIA) 09/22/2013 MADL LIQUOR MAKER, ETELVINA L 788.1 PAIN DURING URINATION (DYSURIA) 09/22/2013 MADL LIQUOR MAKER, ETELVINA L 788.1 PAIN DURING URINATION (DYSURIA) 09/22/2013 MADL LIQUOR MAKER, ETELVINA L 788.1 PAIN DURING URINATION (DYSURIA) 09/22/2013 SALGUERO DO LADONNA K 788.1 PAIN DURING URINATION (DYSURIA) 09/22/2013 SALGUERO DO, LADONNA K 788.1 PAIN DURING URINATION (DYSURIA) 09/22/2013 MADL LIQUOR MAKER, ETELVINA L 788.1 PAIN DURING URINATION (DYSURIA) 09/22/2013 SALGUERO DO, LADONNA K 788.1 PAIN DURING URINATION (DYSURIA) 09/22/2013 MADMaxine LIQUOR MAKER, ETELVINA L 788.1 PAIN DURING URINATION (DYSURIA) 10/22/2013 EDUARDO VILLEGAS MD Ot 596.51 HYPERTONICITY OF BLADDER 10/22/2013 EDUARDO VILLEGAS MD Ot 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 10/22/2013 EDUARDO VILLEGAS MD Ot 788.30 UNSPECIFIED URINARY INCONTINENCE 10/22/2013 EDUARDO VILLEGAS MD Ot V58.69 [facility],CURRENT USE 10/25/2013 HARDEEP DORANTES Ot 892.0 OPEN WOUND OF FOOT 10/25/2013 HARDEEP DORANTES Ot 959.7 LOWER LEG INJURY NOS 10/25/2013 HARDEEP DORANTES Ot E000.8 OTHER EXTERNAL CAUSE STATUS 10/25/2013 HARDEEP DORANTES Ot E849.0 ACCIDENT IN HOME 10/25/2013 HARDEEP DORANTES Ot E916 STRUCK BY FALLING OBJECT 10/25/2013 HARDEEP DORANTES Ot V06.1 [id number], COMBINED [ 11/04/2013 MARLA EVERETT MD, Ot [...] LADONNA K Ot 414.01 CORONARY ATHEROSCLEROSIS OF [place] CORON 02/11/2014 NOEMY PRAKASH LADONNA K Ot [...] MASS INDEX 39.0-39.9, ADULT 02/13/2014 THOMPSON QURESHI LIQUOR MAKER Ot 724.5 BACKACHE NOS 02/27/2014 TERE SALGUERO DOA K 381.01 ACUTE SEROUS OTITIS MEDIA 02/27/2014 NOEMY PRAKASH LADONNA K 381.01 ACUTE SEROUS OTITIS MEDIA 02/27/2014 NOEMY PRAKASH LADONNA K 381.01 ACUTE SEROUS OTITIS MEDIA 02/27/2014 SALGUERO DO LADONNA K 381.01 ACUTE SEROUS OTITIS MEDIA 02/27/2014 ETELVINA LEONARD APRN 381.01 ACUTE SEROUS OTITIS MEDIA 02/27/2014 MADL LIQUOR MAKER, ETELVINA L 381.01 ACUTE SEROUS OTITIS MEDIA 02/27/2014 MADL LIQUOR MAKER, ETELVINA L 381.01 ACUTE SEROUS OTITIS MEDIA 02/27/2014 SALGUERO DO, LADONNA K 381.01 ACUTE SEROUS OTITIS MEDIA 02/27/2014 SALGUERO DO, LADONNA K 381.01 ACUTE SEROUS OTITIS MEDIA 02/27/2014 MADL LIQUOR MAKER, ETELVINA L 381.01 ACUTE SEROUS OTITIS MEDIA 02/27/2014 MADL LIQUOR MAKER, ETELVINA L 381.01 ACUTE SEROUS OTITIS MEDIA 02/27/2014 MADL LIQUOR MAKER, ETELVINA L 381.01 ACUTE SEROUS OTITIS MEDIA 02/27/2014 MADL LIQUOR MAKER, ETELVINA L 381.01 ACUTE SEROUS OTITIS MEDIA 02/27/2014 MADL LIQUOR MAKER, ETELVINA L 381.01 ACUTE SEROUS OTITIS MEDIA 02/27/2014 MADL LIQUOR MAKER, ETELVINA L 381.01 ACUTE SEROUS OTITIS MEDIA 02/27/2014 MADL LIQUOR MAKER, ETELVINA L 381.01 ACUTE SEROUS OTITIS MEDIA 02/27/2014 SALGUERO DO, LADONNA K 381.01 ACUTE SEROUS OTITIS MEDIA 02/27/2014 SALGUERO DO, LADONNA K 381.01 ACUTE SEROUS OTITIS MEDIA 02/27/2014 MADL LIQUOR MAKER, ETELVINA L 381.01 ACUTE SEROUS OTITIS MEDIA 02/27/2014 SALGUERO DO, LADONNA K 381.01 ACUTE SEROUS OTITIS MEDIA 02/27/2014 MADL LIQUOR MAKER, ETELVINA L 381.01 ACUTE SEROUS OTITIS MEDIA 05/22/2014 MADL LIQUOR MAKER, ETELVINA L V16.0 FAMILY HISTORY OF MALIGNANT NEOPLASM OF GASTROINTESTINAL TRACT 05/22/2014 MADL LIQUOR MAKER, ETELVINA L V16.0 FAMILY HISTORY OF MALIGNANT NEOPLASM OF GASTROINTESTINAL TRACT 05/22/2014 SALGUERO DO, LADONNA K V16.0 FAMILY HISTORY OF MALIGNANT NEOPLASM OF GASTROINTESTINAL TRACT 05/22/2014 SALGUERO DO, LADONNA K V16.0 FAMILY HISTORY OF MALIGNANT NEOPLASM OF GASTROINTESTINAL TRACT 05/22/2014 MADL LIQUOR MAKER, ETELVINA L V16.0 FAMILY HISTORY OF MALIGNANT NEOPLASM OF GASTROINTESTINAL TRACT 05/22/2014 MADL LIQUOR MAKER, ETELVINA L V16.0 FAMILY HISTORY OF MALIGNANT NEOPLASM OF GASTROINTESTINAL TRACT 05/22/2014 MADL LIQUOR MAKER, ETELVINA L V16.0 FAMILY HISTORY OF MALIGNANT NEOPLASM OF GASTROINTESTINAL TRACT 05/22/2014 MADL LIQUOR MAKER, ETELVINA L V16.0 FAMILY HISTORY OF MALIGNANT NEOPLASM OF GASTROINTESTINAL TRACT 05/22/2014 MADL LIQUOR MAKER, ETELVINA L V16.0 FAMILY HISTORY OF MALIGNANT NEOPLASM OF GASTROINTESTINAL TRACT 05/22/2014 MADL LIQUOR MAKER, ETELVINA L V16.0 FAMILY HISTORY OF MALIGNANT NEOPLASM OF GASTROINTESTINAL TRACT 05/22/2014 MADL LIQUOR MAKER, ETELVINA L V16.0 FAMILY HISTORY OF MALIGNANT NEOPLASM OF GASTROINTESTINAL TRACT 05/22/2014 SALGUERO DO LADONNA K V16.0 FAMILY HISTORY OF MALIGNANT NEOPLASM OF GASTROINTESTINAL TRACT 05/22/2014 SALGUERO DO LADONNA K V16.0 FAMILY HISTORY OF MALIGNANT NEOPLASM OF GASTROINTESTINAL TRACT 05/22/2014 MADL LIQUOR MAKER, ETELVINA L V16.0 FAMILY HISTORY OF MALIGNANT NEOPLASM OF GASTROINTESTINAL TRACT 05/22/2014 SALGUERO DO LADONNA K V16.0 FAMILY HISTORY OF MALIGNANT NEOPLASM OF GASTROINTESTINAL TRACT 05/22/2014 AISHA LIQUOR MAKER, ETELVINA L V16.0 FAMILY HISTORY OF MALIGNANT [...] FACP CCDS Ot 414.01 CORONARY ATHEROSCLEROSIS OF [place] CORON 05/23/2014 BRADLY KIRBY MD, FACC FACP CCDS Ot 496 CHR AIRWAY OBSTRUCT NEC 05/23/2014 BRADLY KIRBY MD, FACC FACP CCDS Ot 786.50 CHEST PAIN NOS 05/23/2014 BRADYL KIRBY MD, FACC FACP CCDS Ot V45.82 [...] SALDANA MD Ot 414.01 CORONARY ATHEROSCLEROSIS OF [place] CORON 06/05/2014 STEVENSON OLVERA, JEFERSON Bruner Ot 496 CHR AIRWAY OBSTRUCT NEC 06/05/2014 JEFERSON SALDANA MD Ot 562.10 DIVERTICULOSIS COLON (W/O MENT OF HEMORR 06/05/2014 JEFERSON ASLDANA MD Ot V16.0 FAMILY HX-GI MALIGNANCY 06/05/2014 JEFERSON SALDANA MD Ot V76.51 SCREEN MAL NEOP-COLON 07/10/2014 STEVENSON OLVERA, JEFERSON Bruner Ot 530.3 ESOPHAGEAL STRICTURE 07/10/2014 JEFERSON SALDANA MD Ot 535.50 UNSP GASTRITIS GASTRODUODENITIS W/O ME 07/10/2014 JEFERSON SALDANA MD Ot 553.3 DIAPHRAGMATIC HERNIA 08/28/2014 MADL LIQUOR MAKER, ETELVINA L 381.01 ACUTE SEROUS OTITIS MEDIA 08/28/2014 MADL LIQUOR MAKER, ETELVINA L 799.02 HYPOXIA 08/28/2014 MADL LIQUOR MAKER, ETELVINA L V04.81 FLU SHOT 08/28/2014 MADL LIQUOR MAKER, ETELVINA L 381.01 ACUTE SEROUS OTITIS MEDIA 08/28/2014 MADL LIQUOR MAKER, ETELVINA L 799.02 HYPOXIA 08/28/2014 MADL LIQUOR MAKER, ETELVINA L V04.81 FLU SHOT 08/28/2014 MADL LIQUOR MAKER, ETELVINA L 381.01 ACUTE SEROUS OTITIS MEDIA 08/28/2014 MADL LIQUOR MAKER, ETELVINA L 799.02 HYPOXIA 08/28/2014 MADL LIQUOR MAKER, ETELVINA L V04.81 FLU SHOT 08/28/2014 MADL LIQUOR MAKER, ETELVINA L 381.01 ACUTE SEROUS OTITIS MEDIA 08/28/2014 MADL LIQUOR MAKER, ETELVINA L 799.02 HYPOXIA 08/28/2014 MADL LIQUOR MAKER, ETELVINA L V04.81 FLU SHOT 08/28/2014 MADL LIQUOR MAKER, ETELVINA L 381.01 ACUTE SEROUS OTITIS MEDIA 08/28/2014 MADL LIQUOR MAKER, ETELVINA L 799.02 HYPOXIA 08/28/2014 MADL LIQUOR MAKER, ETELVINA L V04.81 FLU SHOT 08/28/2014 MADL LIQUOR MAKER, ETELVINA L 381.01 ACUTE SEROUS OTITIS MEDIA 08/28/2014 MADL LIQUOR MAKER, ETELVINA L 799.02 HYPOXIA 08/28/2014 MADL LIQUOR MAKER, ETELVINA L V04.81 FLU SHOT 08/28/2014 MADL LIQUOR MAKER, ETELVINA L 381.01 ACUTE SEROUS OTITIS MEDIA 08/28/2014 MADL LIQUOR MAKER, ETELVINA L 799.02 HYPOXIA 08/28/2014 MADL LIQUOR MAKER, ETELVINA L V04.81 FLU SHOT 08/28/2014 SALGUERO DO, LADONNA K 381.01 ACUTE SEROUS OTITIS MEDIA 08/28/2014 SALGUERO DO, LADONNA K 799.02 HYPOXIA 08/28/2014 SALGUERO DO, LADONNA K V04.81 FLU SHOT 08/28/2014 SALGUERO DO, LADONNA K 381.01 ACUTE SEROUS OTITIS MEDIA 08/28/2014 SALGUERO DO, LADONNA K 799.02 HYPOXIA 08/28/2014 SALGUERO DO, LADONNA K V04.81 FLU SHOT 08/28/2014 MADL LIQUOR MAKER, ETELVINA L 381.01 ACUTE SEROUS OTITIS MEDIA 08/28/2014 MADL LIQUOR MAKER, ETELVINA L 799.02 HYPOXIA 08/28/2014 MADL LIQUOR MAKER, ETELVINA L V04.81 FLU SHOT 08/28/2014 SALGUERO DO, LADONNA K 381.01 ACUTE SEROUS OTITIS MEDIA 08/28/2014 SALGUERO DO, LADONNA K 799.02 HYPOXIA 08/28/2014 SALGUERO DO, LADONNA K V04.81 FLU SHOT 08/28/2014 MADL LIQUOR MAKER, ETELVINA L 381.01 ACUTE SEROUS OTITIS MEDIA 08/28/2014 MADL LIQUOR MAKER, ETELVINA L 799.02 HYPOXIA 08/28/2014 MADL ETELVINA HARRIS L V04.81 FLU SHOT 08/31/2014 THOMPSON QURESHI LIQUOR MAKER Ot 250.00 DIAB MELVA WO COMPL, TYPE II OR UNSPEC TY 08/31/2014 THOMPSON QURESHI LIQUOR MAKER Ot 305.1 TOBACCO USE DISORDER 08/31/2014 THOMPSON QURESHI LIQUOR MAKER Ot 382.9 OTITIS MEDIA NOS 08/31/2014 THOMPSON QURESHI APRN Ot 784.2 SWELLING IN HEAD NECK 08/31/2014 THOMPSON QURESHI LIQUOR MAKER Ot 910.4 INSECT BITE HEAD 08/31/2014 THOMPSON QURESHI APRN Ot E849.0 ACCIDENT IN HOME 08/31/2014 THOMPSON QURESHI APRN Ot E906.4 NONVENOM ARTHROPOD BITE 08/31/2014 THOMPSON QURESHI APRN Ot V58.67 LONG-TERM (CURRENT) USE OF INSULIN 09/01/2014 THOMPSON QURESHI APRN Ot 373.00 BLEPHARITIS NOS 09/01/2014 THOMPSON QURESHI LIQUOR MAKER Ot 379.92 SWELLING OR MASS OF EYE 10/01/2014 HUANG DO, FELICIA K Ot 272.0 PURE HYPERCHOLESTEROLEM 10/01/2014 HUANG DO, FELICIA K Ot 401.9 HYPERTENSION NOS 10/01/2014 HUANG DO, FELICIA K Ot 455.6 HEMORRHOIDS NOS 10/01/2014 HUANG DO, FELICIA K Ot 565.0 ANAL FISSURE 10/01/2014 HUANG DO, FELICAI K Ot 569.3 RECTAL ANAL HEMORRHAGE 10/23/2014 AISHA HARRIS, ETELVINA L 112.3 CANDIDIASIS OF SKIN AND NAILS 10/23/2014 MADL SARA HARRISWNYA L V03.82 PPV23 (PNEUMOVAX) DX 10/23/2014 MADL LIQUOR MAKER, ETELVINA L 112.3 CANDIDIASIS OF SKIN AND [...] DORANTES Ot 486 PNEUMONIA, ORGANISM NOS 10/30/2014 HADREEP DORANTES Ot 496 CHR AIRWAY OBSTRUCT NEC [...] JOINT INVOLVING ANKLE AND FOOT 12/11/2014 HUGOL LIQUOR MAKERSARA BowserETELVINA L 719.46 PAIN IN JOINT INVOLVING LOWER LEG 12/11/2014 MADL LIQUOR MAKERANDREZ BowserNYA L 719.47 PAIN IN JOINT INVOLVING ANKLE AND FOOT 12/11/2014 SALGUERO DO LADONNA K 719.46 PAIN IN JOINT INVOLVING LOWER LEG 12/11/2014 NOEMY PRAKASH LADONNA K 719.47 PAIN IN JOINT INVOLVING ANKLE AND FOOT 12/11/2014 MADL SARA HARRISWNYA L 719.46 PAIN IN JOINT INVOLVING LOWER LEG 12/11/2014 MADL LIQUOR MAKERANDREZ BowserNYA L 719.47 PAIN IN JOINT INVOLVING [...] HARRIS, ETELVINA L 757.39 POROKEROTOSIS 02/09/2015 MADL LIQUOR MAKER, ETELVINA L 788.1 DYSURIA 02/09/2015 MADL LIQUOR MAKER, ETELVINA L 789.02 ABDOMINAL PAIN LEFT UPPER QUADRANT 02/09/2015 NOEMY PRAKASH LADONNA K 735.4 HAMMER TOE (ACQUIRED) 02/09/2015 NOEMY DO LADONNA K 757.39 POROKEROTOSIS 02/09/2015 SALGUERO DO LADONNA K 788.1 DYSURIA 02/09/2015 NOEMY PRAAKSH LADONNA K 789.02 ABDOMINAL PAIN LEFT UPPER QUADRANT 02/09/2015 MADL LIQUOR MAKER, ETELVINA L 735.4 HAMMER TOE (ACQUIRED) 02/09/2015 AISHA HARRIS, ETELVINA L 757.39 POROKEROTOSIS 02/09/2015 HUGOL KIMBERLY, ETELVINA L 788.1 DYSURIA 02/09/2015 AISHA HARRIS, ETELVINA L 789.02 ABDOMINAL PAIN LEFT UPPER QUADRANT 02/19/2015 MADL KIMBERLY, ETELVINA L 780.2 SYNCOPE AND COLLAPSE 02/19/2015 SALGUERO DO, LADONNA K 780.2 SYNCOPE AND COLLAPSE 02/19/2015 MADL LIQUOR MAKER, ETELVINA L 780.2 SYNCOPE AND COLLAPSE 02/20/2015 QUE LEON MD Ot 250.00 DIAB MELVA WO COMPL, TYPE II OR UNSPEC TY 02/20/2015 QUE LEON MD Ot 305.1 TOBACCO USE DISORDER 02/20/2015 QUE LEON MD Ot 401.9 HYPERTENSION NOS 02/20/2015 QUE LEON MD Ot 414.01 CORONARY ATHEROSCLEROSIS OF [place] CORON 02/20/2015 QUE LEON MD Ot 458.0 ORTHOSTATIC HYPOTENSION 02/20/2015 QUE LEON MD Ot 584.9 ACUTE RENAL FAILURE, UNSPECIFIED 02/20/2015 QUE LEON MD Ot V15.88 HISTORY OF FALL 02/27/2015 ETELVINA LEONARD APRN L 593.9 UNSPECIFIED DISORDER OF KIDNEY AND URETER 03/01/2015 HAMMAD LEONARDA L DRILL SETUP OPERATOR Ot 414.00 03/01/2015 HAMMAD LEONARDA L DRILL SETUP OPERATOR Ot 780.2 03/01/2015 MADHAMMAD GoodmanA L DRILL SETUP OPERATOR Ot V45.82 03/26/2015 Ot 786.09 03/26/2015 Ot [...] Garcia Ot V74.8 03/26/2015 BAIKYLAH ABAD L DRILL SETUP OPERATOR Ot 396.3 03/26/2015 BAIMA KYLAH L DRILL SETUP OPERATOR Ot 397.0 03/26/2015 BAIJENNIFFER KYLAH L DRILL SETUP OPERATOR Ot 401.9 03/26/2015 BAIJENNIFFER KYLAH L DRILL SETUP OPERATOR Ot 414.00 03/26/2015 BAIMA KYLAH L DRILL SETUP OPERATOR Ot 250.00 03/26/2015 BAIMA, KYLAH L DRILL SETUP OPERATOR Ot 272.4 03/26/2015 BAIMA, KYLAH L DRILL SETUP OPERATOR Ot 305.1 03/26/2015 BAIMA, KYLAH L DRILL SETUP OPERATOR Ot 401.9 03/26/2015 BAIMA, KYLAH L DRILL SETUP OPERATOR Ot 414.00 03/26/2015 BAIMA, KYLAH L DRILL SETUP OPERATOR Ot 424.90 03/26/2015 BAIMA, KYLAH L DRILL SETUP OPERATOR Ot 496 03/26/2015 TAMARA OLVERA, PATRICIA L Ot 996.78 03/26/2015 TAMARA OLVERA, PATRICIA L Ot V72.63 03/26/2015 TAMARA OLVERA, PATRICIA L Ot V72.81 03/26/2015 TAMARA OLVERA, PATRICIA L Ot V74.8 03/26/2015 KARYN OLVERA, BYRON M Ot 272.4 03/26/2015 KARYN OLVERA, BYRON M Ot 338.29 03/26/2015 KARYN OLVERA, BYRON M Ot 401.9 03/26/2015 BAIMA, KYLAH L DRILL SETUP OPERATOR Ot 414.00 03/26/2015 BAIMA, KYLAH L DRILL SETUP OPERATOR Ot 429.3 03/26/2015 STEVENSON OLVERA, EJFERSON M Ot V72.84 03/26/2015 BAIMA, KYLAH L DRILL SETUP OPERATOR Ot 272.4 03/26/2015 STEVENSON OLVERA, JEFERSON M Ot V72.84 03/26/2015 KOFI OLVERA FAC, ALI FACP CCDS Ot 272.4 03/26/2015 KOFI OLVERA FACC, ALI FACP CCDS Ot 414.00 03/26/2015 KOFI OLVERA FACC, ALI FACP CCDS Ot 414.8 03/26/2015 KOFI OLVERA FACC, ALI FACP CCDS Ot 458.9 03/26/2015 KOFI OLVERA FACC, ALI FACP CCDS Ot 780.4 03/26/2015 MADL, TEELVINA L DRILL SETUP OPERATOR Ot 414.00 03/26/2015 MADL, ETELVINA L DRILL SETUP OPERATOR Ot 780.2 03/26/2015 MADL, ETELVINA L DRILL SETUP OPERATOR Ot V45.82 03/26/2015 BAIMA, KYLAH L DRILL SETUP OPERATOR Ot 272.4 03/26/2015 BAIMA, KYLAH L DRILL SETUP OPERATOR Ot 276.9 03/26/2015 BAIMA, KYLAH L DRILL SETUP OPERATOR Ot 401.9 03/26/2015 BAIKYLAH ABAD L DRILL SETUP OPERATOR Ot 414.00 03/26/2015 GELLENDER DO, BILL A Ot 250.00 03/26/2015 GELLENDER DO, BILL A Ot 272.4 03/26/2015 GELLENDER DO, BILL A Ot 414.00 04/05/2015 BAIJENNIFFER, KYLAH L DRILL SETUP OPERATOR Ot 272.4 04/05/2015 BAIMA, KYLAH L DRILL SETUP OPERATOR Ot 276.9 04/05/2015 BAIMA, KYLAH L DRILL SETUP OPERATOR Ot 401.9 04/05/2015 BAIJENNIFFER, KYLAH L DRILL SETUP OPERATOR Ot 414.00 04/05/2015 GELLENDER DO, BILL A Ot 250.00 04/05/2015 GELLENDER DO, BILL A Ot 272.4 [facility]/05/[facility] Ot 414.00 04/06/2015 MADLETELVINA L DRILL SETUP OPERATOR Ot 414.00 04/06/2015 MADL, ETELVINA L DRILL SETUP OPERATOR Ot 780.2 04/06/2015 MADL, ETELVINA L DRILL SETUP OPERATOR Ot V45.82 05/22/2015 [facility] Garcia Ot 724.5 05/22/2015 [facility] Garcia Ot 733.90 05/24/2015 [facility] Garcia Ot 715.37 06/25/2015 KOFI OLVEAR FACC, ALI FACP CCDS Ot 250.00 06/25/2015 [...] FACP CCDS Ot 530.81 07/16/2015 THOMPSON QURESHI LIQUOR MAKER Ot 916.0 ABRASION HIP LEG 07/16/2015 THOMPSON QURESHI LIQUOR MAKER Ot 923.10 CONTUSION OF FOREARM 07/16/2015 THOMPSON QURESHI LIQUOR MAKER Ot 959.7 LOWER LEG INJURY NOS 07/16/2015 THOMPSON QURESHI LIQUOR MAKER Ot E000.8 OTHER EXTERNAL CAUSE STATUS 07/16/2015 THOMPSON QURESHI LIQUOR MAKER Ot E849.6 ACCIDENT IN PUBLIC BLDG 07/16/2015 THOMPSON QURESHI LIQUOR MAKER Ot E888.9 FALL NOS 07/23/2015 BRYN DO, BILL Garcia Ot 250.00 07/23/2015 AMELIALENBARRY, BILL Garcia Ot 959.7 07/23/2015 BRYN PRAKASH, BILL Garcia Ot E000.8 07/23/2015 BYRN PRAKASH, BILL Garcia Ot E928.9 07/30/2015 HARDEEP [...] A Ot V74.8 09/13/2015 BAIMA, KYLAH L DRILL SETUP OPERATOR Ot 396.3 09/13/2015 BAIMA, KYLAH L DRILL SETUP OPERATOR Ot 397.0 09/13/2015 BAIMA, KYLAH L DRILL SETUP OPERATOR Ot 401.9 09/13/2015 BAIMA, KYLAH L DRILL SETUP OPERATOR Ot 414.00 09/13/2015 BAIMA, KYLAH L DRILL SETUP OPERATOR Ot 250.00 09/13/2015 BAIMA, KYLAH L DRILL SETUP OPERATOR Ot 272.4 09/13/2015 BAIMA, KYLAH L DRILL SETUP OPERATOR Ot 305.1 09/13/2015 BAIMA, KYLAH L DRILL SETUP OPERATOR Ot 401.9 09/13/2015 BAIMA, KYLAH L DRILL SETUP OPERATOR Ot 414.00 09/13/2015 BAIMA, KYLAH L DRILL SETUP OPERATOR Ot 424.90 09/13/2015 BAIMA, KYLAH L DRILL SETUP OPERATOR Ot 496 09/13/2015 TAMARA OLVERA, PATRICIA L Ot 996.78 09/13/2015 TAMARA OLVERA, PATRICIA L Ot V72.63 09/13/2015 TAMARA OLVERA, PATRICIA L Ot V72.81 09/13/2015 TAMARA OLVERA, PATRICIA L Ot V74.8 09/13/2015 KARYN OLVERA, BYRON Bruner Ot 272.4 09/13/2015 BYRON BOSS MD Ot 338.29 09/13/2015 KARYN OLVERA, BYRON Bruner Ot 401.9 09/13/2015 BAIMA, KYLAH L DRILL SETUP OPERATOR Ot 414.00 09/13/2015 BAIMA, KYLAH L DRILL SETUP OPERATOR Ot 429.3 09/13/2015 STEVENSON OLVERA, JEFERSON Bruner Ot V72.84 09/13/2015 BAIMA, KYLAH L DRILL SETUP OPERATOR Ot 272.4 09/13/2015 STEVENSON OLVERA, JEFERSON Bruner Ot V72.84 09/13/2015 KOFI OLVERA FACC, ALI FACP CCDS Ot 272.4 09/13/2015 KOFI OLVERA FACC, ALI FACP CCDS Ot 414.00 09/13/2015 KOFI OLVERA FACC, ALI FACP CCDS Ot 414.8 09/13/2015 KOFI OLVERA FACC, ALI FACP CCDS Ot 458.9 09/13/2015 KOFI OLVERA FACC, ALI FACP CCDS Ot 780.4 09/13/2015 MADL, ETELVINA L DRILL SETUP OPERATOR Ot 414.00 09/13/2015 MADL, ETELVINA L DRILL SETUP OPERATOR Ot 780.2 09/13/2015 MADL, ETELVINA L DRILL SETUP OPERATOR Ot V45.82 09/13/2015 BAIMA, KYLAH L DRILL SETUP OPERATOR Ot 272.4 09/13/2015 BAIMA, KYLAH L DRILL SETUP OPERATOR Ot 276.9 09/13/2015 BAIMA, KYLAH L DRILL SETUP OPERATOR Ot 401.9 09/13/2015 BAIMA, KYLAH L DRILL SETUP OPERATOR Ot 414.00 09/13/2015 GELLENDER DO, BILL A [...] FACP CCDS Ot 305.1 09/13/2015 KOFI OLVERA [facility], ALI FACP CCDS Ot 401.9 09/13/2015 KOFI OLVERA [facility], ALI FACP CCDS Ot 414.00 09/13/2015 KOFI OLVERA FAC, ALI FACP CCDS Ot 447.72 09/13/2015 KOFI OLVERA FAC, ALI FACP CCDS Ot 458.9 09/13/2015 KOFI OLVERA [facility], ALI FACP CCDS Ot 496 09/13/2015 KOFI OLVERA [facility], ALI FACP CCDS Ot 530.81 09/13/2015 GELLENDER DO, BILL Garcia Ot 250.00 09/13/2015 GELLENDER DO, BILL A Ot 959.7 09/13/2015 GELLENDER DO, BILL A Ot E000.8 09/13/2015 GELLENDER DO, BILL Garcia Ot E928.9 09/25/2015 KYLAH CREWS DRILL SETUP OPERATOR Ot E78.5 09/25/2015 KYLAH CREWS DRILL SETUP OPERATOR Ot I25.9 10/07/2015 JESSIE OLVERA, BETTINA Nation [...] 10/07/2015 JESSIE OLVERA, BETTINA Nation Ot Z79.4 ASSISTED (CURRENT) USE OF INSULIN 10/12/2015 GELLENDER DO, BILL A Ot N39.0 10/16/2015 GELLENDER DO, BILL Garcia Ot N39.0 12/01/2015 KARLOS OLVERA, MARLA Ackerman Ot H05.221 EDEMA OF RIGHT ORBIT 12/01/2015 KARLOS OLVERA, MARLA Ackerman Ot R05 COUGH 12/01/2015 KARLOS OLVERA, MARLA Ackerman Ot R51 HEADACHE 12/09/2015 JESSIE OLVERA, BETTINA Nation Ot H00.021 HORDEOLUM INTERNUM RIGHT UPPER EYELID 03/05/2016 ANGELESINES NULL MD, Ot F17.210 NICOTINE DEPENDENCE, CIGARETTES, [...] 03/09/2016 MARLA EVERETT MD Ot Z79.899 OTHER ASSISTED (CURRENT) DRUG THERAPY 03/11/2016 MARLA EVERETT MD [...] CCDS Ot I25.10 ATHSCL HEART DISEASE OF [place] CORONARY 03/21/2016 KOFI OLVERA FACC, ALI FACP CCDS Ot E78.5 HYPERLIPIDEMIA, UNSPECIFIED 03/21/2016 KOFI OLVERA FACC, ALI FACP CCDS Ot I25.10 ATHSCL HEART DISEASE OF [place] CORONARY 04/02/2016 STEVENSON OLVERA, JEFERSON Bruner Ot [...] GASTRITIS, UNSPECIFIED, WITHOUT BLEEDING 04/07/2016 STEVENSON OLVERA, JFEERSON Bruner Ot K44.9 DIAPHRAGMATIC HERNIA WITHOUT OBSTRUCTION 04/08/2016 STEVENSON OLVERA, JEFERSON Bruner Ot K20.9 ESOPHAGITIS, UNSPECIFIED 04/08/2016 STEVENSON OLVERA, JEFERSON Bruner Ot K29.70 GASTRITIS, UNSPECIFIED, WITHOUT BLEEDING 04/08/2016 STEVENSON OLVERA, JEFERSON Bruner Ot K44.9 DIAPHRAGMATIC HERNIA WITHOUT OBSTRUCTION 04/30/2016 Ot V67.9 05/30/2016 Ot V67.9 09/30/2016 Ot V67.9 12/30/2016 Ot V76.12 OTH SCREEN MAMMO-MALIGN NEOPLASM OF [place] 12/30/2016 Ot 414.01 CORONARY ATHEROSCLEROSIS OF [place] CORON 12/30/2016 Ot 786.50 CHEST PAIN NOS [...] SCREEN-BACTERIAL DIS NEC 12/30/2016 BAIMA, KYLAH L DRILL SETUP OPERATOR Ot 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 12/30/2016 BAIMA, KYLAH L DRILL SETUP OPERATOR Ot 397.0 TRICUSPID VALVE DISEASE 12/30/2016 BAIMA, KYLAH L DRILL SETUP OPERATOR Ot 401.9 HYPERTENSION NOS 12/30/2016 BAIMA, KYLAH L DRILL SETUP OPERATOR Ot 414.00 CORON ATHEROSCLER NOS TYPE VESSEL, NATIV 12/30/2016 BAIMA, KYLAH L DRILL SETUP OPERATOR Ot 250.00 DIAB MELVA WO COMPL, TYPE II OR UNSPEC TY 12/30/2016 BAIMA, KYLAH L DRILL SETUP OPERATOR Ot 272.4 HYPERLIPIDEMIA NEC/NOS 12/30/2016 KYLAH CREWS L DRILL SETUP OPERATOR Ot 305.1 TOBACCO USE DISORDER 12/30/2016 KYLAH CREWS L DRILL SETUP OPERATOR Ot 401.9 HYPERTENSION NOS 12/30/2016 KYLAH CREWS L DRILL SETUP OPERATOR Ot 414.00 CORON ATHEROSCLER NOS TYPE VESSEL, NATIV 12/30/2016 KYLAH CREWS L DRILL SETUP OPERATOR Ot 424.90 ENDOCARDITIS NOS 12/30/2016 KYLAH CREWS L DRILL SETUP OPERATOR Ot 496 CHR AIRWAY OBSTRUCT NEC 12/30/2016 PATRICIA MCDONALD MD Ot 996.78 OTH COMP DUE TO OTH INTRNL ORTHPEDIC DEV 12/30/2016 PATRICIA MCDONALD MD Ot V72.63 PRE-PROCEDURAL LABORATORY EXAMINATION 12/30/2016 PATRICIA MCDONALD MD Ot V72.81 GIUA-URL-ZIFDUOROF CARDIOVASCULAR 12/30/2016 PATRICIA MCDONALD MD Ot V74.8 SCREEN-BACTERIAL DIS NEC 12/30/2016 BYRON BOSS MD Ot 272.4 HYPERLIPIDEMIA NEC/NOS 12/30/2016 BYRON BOSS MD Ot 338.29 OTHER CHRONIC PAIN 12/30/2016 BYRON BOSS MD Ot 401.9 HYPERTENSION NOS 12/30/2016 KYLAH CREWS L DRILL SETUP OPERATOR Ot 414.00 CORON ATHEROSCLER NOS TYPE VESSEL, NATIV 12/30/2016 KYLAH CREWS L DRILL SETUP OPERATOR Ot 429.3 CARDIOMEGALY 12/30/2016 JEFERSON SALDANA MD Ot V72.84 EXAM PRE-OPERATIVE NOS 12/30/2016 PERLAKYLAH ABAD L DRILL SETUP OPERATOR Ot 272.4 HYPERLIPIDEMIA NEC/NOS 12/30/2016 STEVENSON OVLERA, JEFERSON Bruner Ot V72.84 EXAM PRE-OPERATIVE NOS [...] 780.4 DIZZINESS AND GIDDINESS 12/30/2016 KYLAH CREWS DRILL SETUP OPERATOR Ot E78.5 HYPERLIPIDEMIA, UNSPECIFIED 12/30/2016 KYLAH CREWS DRILL SETUP OPERATOR Ot I25.9 CHRONIC ISCHEMIC HEART DISEASE, UNSPECIF 12/30/2016 ETELVINA LEONARD DRILL SETUP OPERATOR Ot 414.00 CORON ATHEROSCLER NOS TYPE VESSEL, NATIV 12/30/2016 ETELVINA LEONARD DRILL SETUP OPERATOR Ot 780.2 SYNCOPE AND COLLAPSE 12/30/2016 ETELVINA LEONARD DRILL SETUP OPERATOR Ot V45.82 PERCUTANEOUS TRANSLUM CORON ANGIOPLASTY 12/30/2016 KYLAH CREWS DRILL SETUP OPERATOR Ot 272.4 HYPERLIPIDEMIA NEC/NOS 12/30/2016 KYLAH CREWS DRILL SETUP OPERATOR Ot 276.9 ELECTROLYT/FLUID DIS NEC 12/30/2016 KYLAH CREWS DRILL SETUP OPERATOR Ot 401.9 HYPERTENSION NOS 12/30/2016 KYLAH CREWS DRILL SETUP OPERATOR Ot 414.00 CORON ATHEROSCLER NOS TYPE VESSEL, [...] DO Ot 715.37 LOC OSTEOARTH NOS-ANKLE 12/30/2016 KFOI OLVERA FACC, ALI FACP CCDS Ot 250.00 [...] CHR AIRWAY OBSTRUCT NEC 12/30/2016 KOFI OLVERA [facility], ALI FACP CCDS Ot 530.81 ESOPHAGEAL REFLUX 12/30/2016 KYLAH CREWS DRILL SETUP OPERATOR Ot I71.4 ABDOMINAL AORTIC ANEURYSM, WITHOUT RUPTU [...] INFECTION, SITE NOT SPECIF 12/30/2016 KOFI OLVERA [facility], BRADLY FACP CCDS Ot E78.5 HYPERLIPIDEMIA, UNSPECIFIED 12/30/2016 KOFI OLVERA [facility], BRADLY FAC CCDS Ot I25.10 ATHSCL HEART DISEASE OF [place] CORONARY 01/01/2017 ADELFO [place] DRILL SETUP OPERATOR Ot I71.4 ABDOMINAL AORTIC ANEURYSM, WITHOUT RUPTU 01/01/2017 ADELFO [place] DRILL SETUP OPERATOR Ot I71.4 ABDOMINAL AORTIC ANEURYSM, WITHOUT RUPTU 01/01/2017 ADELFO [place] DRILL SETUP OPERATOR Ot I71.4 ABDOMINAL AORTIC ANEURYSM, WITHOUT RUPTU 01/21/2017 ADELFO W[place] DRILL SETUP OPERATOR Ot I71.4 ABDOMINAL AORTIC ANEURYSM, WITHOUT RUPTU [...] SCREEN-BACTERIAL DIS NEC 11/26/2017 BAIMA, KYLAH L DRILL SETUP OPERATOR Ot 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 11/26/2017 BAIMA, KYLAH L DRILL SETUP OPERATOR Ot 397.0 TRICUSPID VALVE DISEASE 11/26/2017 BAIMA, KYLAH L DRILL SETUP OPERATOR Ot 401.9 HYPERTENSION NOS 11/26/2017 BAIMA, KYLAH L DRILL SETUP OPERATOR Ot 414.00 CORON ATHEROSCLER NOS TYPE VESSEL, NATIV 11/26/2017 BAIMA, KYLAH L DRILL SETUP OPERATOR Ot 250.00 DIAB MELVA WO COMPL, TYPE II OR UNSPEC TY 11/26/2017 BAIMA, KYLAH L DRILL SETUP OPERATOR Ot 272.4 HYPERLIPIDEMIA NEC/NOS 11/26/2017 BAIMA, KYLAH L DRILL SETUP OPERATOR Ot 305.1 TOBACCO USE DISORDER 11/26/2017 BAIMA, KYLAH L DRILL SETUP OPERATOR Ot 401.9 HYPERTENSION NOS 11/26/2017 BAIMA, KYLAH L DRILL SETUP OPERATOR Ot 414.00 CORON ATHEROSCLER NOS TYPE VESSEL, NATIV 11/26/2017 BAIMA, KYLAH L DRILL SETUP OPERATOR Ot 424.90 ENDOCARDITIS NOS 11/26/2017 BAIMA, KYLAH L DRILL SETUP OPERATOR Ot 496 CHR AIRWAY OBSTRUCT NEC 11/26/2017 PATRICIA MCDONALD MD Ot 996.78 OTH COMP DUE TO OTH INTRNL ORTHPEDIC DEV 11/26/2017 PATRICIA MCDONALD MD, Ot V72.63 PRE-PROCEDURAL LABORATORY EXAMINATION 11/26/2017 PATRICIA MCDONALD MD, Ot V72.81 [id number] CARDIOVASCULAR 11/26/2017 REVEAL MD, PATRICIA L Ot V74.8 SCREEN-BACTERIAL DIS NEC 11/26/2017 KARYN OLVERA, BYRON Bruner Ot 272.4 HYPERLIPIDEMIA NEC/NOS 11/26/2017 KARYN OLVERA, BYRON Bruner Ot 338.29 OTHER CHRONIC PAIN 11/26/2017 KAYRN OLVERA, BYRON Bruner Ot 401.9 HYPERTENSION NOS 11/26/2017 BAIMA, KYLAH L DRILL SETUP OPERATOR Ot 414.00 CORON ATHEROSCLER NOS TYPE VESSEL, NATIV 11/26/2017 BAIMA, KYLAH L DRILL SETUP OPERATOR Ot 429.3 CARDIOMEGALY 11/26/2017 STEVENSON OLVERA, JEFERSON Bruner Ot V72.84 EXAM PRE-OPERATIVE NOS 11/26/2017 BAIMA, KYLAH L DRILL SETUP OPERATOR Ot 272.4 HYPERLIPIDEMIA NEC/NOS 11/26/2017 STEVENSON OLVERA, [...] DIZZINESS AND GIDDINESS 11/26/2017 BAIMA, KYLAH L DRILL SETUP OPERATOR Ot E78.5 HYPERLIPIDEMIA, UNSPECIFIED 11/26/2017 BAIMA, KYLAH L DRILL SETUP OPERATOR Ot I25.9 CHRONIC ISCHEMIC HEART DISEASE, UNSPECIF 11/26/2017 MADL, ETELVINA L DRILL SETUP OPERATOR Ot 414.00 CORON ATHEROSCLER NOS TYPE VESSEL, NATIV 11/26/2017 MADL, ETELVINA L DRILL SETUP OPERATOR Ot 780.2 SYNCOPE AND COLLAPSE 11/26/2017 MADL, ETELVINA L DRILL SETUP OPERATOR Ot V45.82 PERCUTANEOUS TRANSLUM CORON ANGIOPLASTY 11/26/2017 BAIMA, KYLAH L DRILL SETUP OPERATOR Ot 272.4 HYPERLIPIDEMIA NEC/NOS 11/26/2017 BAIMA, KYLAH L DRILL SETUP OPERATOR Ot 276.9 ELECTROLYT/FLUID DIS NEC 11/26/2017 BAIMA, KYLAH L DRILL SETUP OPERATOR Ot 401.9 HYPERTENSION NOS 11/26/2017 BAIMA, KYLAH L DRILL SETUP OPERATOR Ot 414.00 CORON ATHEROSCLER NOS TYPE VESSEL, [...] CCDS Ot 530.81 ESOPHAGEAL REFLUX 11/26/2017 KYLAH CERWS DRILL SETUP OPERATOR Ot I71.4 ABDOMINAL AORTIC ANEURYSM, WITHOUT RUPTU [...] CCDS Ot I25.10 ATHSCL HEART DISEASE OF [place] CORONARY 11/26/2017 ADELFO [place] DRILL SETUP OPERATOR Ot I71.4 ABDOMINAL AORTIC ANEURYSM, WITHOUT RUPTU [...] CCDS Ot I25.10 ATHSCL HEART DISEASE OF [place] CORONARY 12/01/2017 KOFI OLVERA FACC, ALI FACP [...] Ot I10 ESSENTIAL (PRIMARY) HYPERTENSION 12/03/2017 KOFI OLVEAR FACC, ALI FACP CCDS Ot I25.10 ATHSCL HEART DISEASE OF [place] CORONARY 12/03/2017 KOFI OLVERA FACC, ALI FACP [...] CCDS Ot I25.10 ATHSCL HEART DISEASE OF [place] CORONARY 12/10/2017 KOFI OLVERA FACC, ALI FACP CCDS Ot I25.5 ISCHEMIC CARDIOMYOPATHY 12/10/2017 KOFI OLVERA FACC, ALI FACP CCDS Ot I73.9 PERIPHERAL VASCULAR DISEASE, UNSPECIFIED 12/10/2017 KOFI OLVERA FACC, ALI FACP CCDS Ot J43.8 OTHER EMPHYSEMA 12/10/2017 KOFI OLEVRA FACC, ALI FACP CCDS Ot R06.02 SHORTNESS OF BREATH 12/10/2017 [facility], [facility]I FACP CCDS Ot Z72.0 TOBACCO USE 12/17/2017 KOFI OLVERA FACC, ALI FACP CCDS Ot E11.9 TYPE 2 DIABETES MELLITUS WITHOUT COMPLIC 12/17/2017 KOFI OLVERA FACC, ALI FACP CCDS Ot I10 ESSENTIAL (PRIMARY) HYPERTENSION 12/17/2017 KOFI OLVERA FACC, ALI FACP CCDS Ot I25.10 ATHSCL HEART DISEASE OF [place] CORONARY 12/17/2017 KOFI OLVERA FACC, ALI FACP CCDS Ot I25.5 ISCHEMIC CARDIOMYOPATHY 12/17/2017 [facility], ALI FACP CCDS Ot I73.9 PERIPHERAL VASCULAR DISEASE, UNSPECIFIED 12/17/2017 KOFI OLVERA FACC, ALI FACP CCDS Ot J43.8 OTHER EMPHYSEMA 12/17/2017 KOFI OLVERA FACC, ALI FACP CCDS Ot R06.02 SHORTNESS OF BREATH 12/17/2017 KOFI OLVERA FACC, ALI FACP CCDS Ot Z72.0 TOBACCO USE 12/22/2017 KYLAH CREWS DRILL SETUP OPERATOR Ot I25.5 ISCHEMIC CARDIOMYOPATHY 12/28/2017 KOFI OLVERA FACC, ALI FACP CCDS Ot E11.9 TYPE 2 DIABETES MELLITUS WITHOUT COMPLIC 12/28/2017 KOFI OLVERA FACC, ALI FACP CCDS Ot I10 ESSENTIAL (PRIMARY) HYPERTENSION 12/28/2017 KOFI OLVERA FACC, ALI FACP CCDS Ot I25.10 ATHSCL HEART DISEASE OF [place] CORONARY 12/28/2017 KOFI OLVERA FACC, ALI FACP [...] CCDS Ot I25.10 ATHSCL HEART DISEASE OF [place] CORONARY 12/30/2017 KOFI OLVERA FAC, ALI FACP [...] INITIAL ENCOUNTER 01/07/2018 HARDEEP DORANTES Ot Z79.84 ASSISTED (CURRENT) USE OF ORAL HYPOGLYC 01/07/2018 HARDEEP [...] CCDS Ot I25.10 ATHSCL HEART DISEASE OF [place] CORONARY 01/08/2018 KOFI OLVERA FACC, BRADLY FACP [...] INITIAL ENCOUNTER 01/11/2018 HARDEEP DORANTES Ot Z79.84 ASSISTED (CURRENT) USE OF ORAL HYPOGLYC 01/11/2018 HARDEEP [...] INITIAL ENCOUNTER 01/13/2018 HARDEEP DORANTES Ot Z79.84 ASSISTED (CURRENT) USE OF ORAL HYPOGLYC 01/13/2018 HARDEEP DORATNES Ot Z87.440 PERSONAL HISTORY OF URINARY (TRACT) [...] MD, Ot I25.10 ATHSCL HEART DISEASE OF [place] CORONARY 02/15/2018 MARLA EVERETT MD, Ot J43.9 EMPHYSEMA, UNSPECIFIED 02/15/2018 MARLA EVERETT MD, Ot K21.9 GASTRO-ESOPHAGEAL REFLUX DISEASE WITHOUT 02/15/2018 MARLA EVERETT MD Ot R07.89 OTHER CHEST PAIN 02/15/2018 MARLA EVERETT MD, Ot 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 02/15/2018 MARLA EVERETT MD Ot Z79.84 ASSISTED (CURRENT) USE OF ORAL HYPOGLYC 02/15/2018 MARLA [...] MD Ot I25.10 ATHSCL HEART DISEASE OF [place] CORONARY 02/17/2018 MARLA EVERETT MD, Ot J43.9 EMPHYSEMA, UNSPECIFIED 02/17/2018 MARLA EVERETT MD, Ot K21.9 GASTRO-ESOPHAGEAL REFLUX DISEASE WITHOUT 02/17/2018 MARLA EVERETT MD Ot R07.89 OTHER CHEST PAIN 02/17/2018 MARLA EVERETT MD Ot Z79.82 ASSISTED (CURRENT) USE OF ASPIRIN 02/17/2018 MARLA EVERETT MD Ot Z79.84 ASSISTED (CURRENT) USE OF ORAL HYPOGLYC 02/17/2018 MARLA [...] Adriana Ot I25.10 ATHSCL HEART DISEASE OF [place] CORONARY 02/21/2018 FELICIA ENCINAS DO Ot J43.9 EMPHYSEMA, UNSPECIFIED 02/21/2018 HAUNG TRENTON PRAKASHA Adriana Ot K21.9 GASTRO-ESOPHAGEAL REFLUX DISEASE WITHOUT 02/21/2018 HUANG TRENTON PRAKASHA Adriana Ot N39.0 URINARY TRACT INFECTION, SITE NOT SPECIF 02/21/2018 HUANG FELICIA PRAKASH Ot R20.2 PARESTHESIA OF SKIN 02/21/2018 HUANG FELICIA PRAKASH Ot R53.1 WEAKNESS 02/21/2018 HUANG TRENTON PRAKASHA Adriana Ot 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 02/21/2018 HUANG TRENTON PRAKASHA Adriana Ot Z87.01 PERSONAL HISTORY OF PNEUMONIA (RECURRENT 02/21/2018 HUANG FELICIA PRAKASH Ot Z88.0 ALLERGY STATUS TO PENICILLIN 02/21/2018 HUANG FELICIA PRAKASH Ot Z88.6 ALLERGY STATUS TO ANALGESIC AGENT STATUS 02/21/2018 HUANG FELICIA PRAKASH Ot Z88.8 ALLERGY STATUS TO OTH DRUG/MEDS/BIOL [...] Adriana Ot I25.10 ATHSCL HEART DISEASE OF [place] CORONARY 02/23/2018 HUANG PRAKASH FELICIA Adriana Ot J43.9 EMPHYSEMA, UNSPECIFIED 02/23/2018 HUANG PRAKASH FELICIA Wright Ot K21.9 GASTRO-ESOPHAGEAL REFLUX DISEASE WITHOUT 02/23/2018 HUANG DO FELICIA Wright Ot N39.0 URINARY TRACT INFECTION, SITE NOT SPECIF 02/23/2018 HUANG PRAKASH FELICIA Adriana Ot R20.2 PARESTHESIA OF SKIN 02/23/2018 HUANG FELICIA Adriana Ot R53.1 WEAKNESS 02/23/2018 HUANG PRAKASH FELICIA Adriana Ot 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 02/23/2018 HUANG [...] SCREEN-BACTERIAL DIS NEC 03/02/2018 BAIMA, KYLAH L DRILL SETUP OPERATOR Ot 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 03/02/2018 BAIMA, KYLAH L DRILL SETUP OPERATOR Ot 397.0 TRICUSPID VALVE DISEASE 03/02/2018 BAIMA, KYLAH L DRILL SETUP OPERATOR Ot 401.9 HYPERTENSION NOS 03/02/2018 BAIMA, KYLAH L DRILL SETUP OPERATOR Ot 414.00 CORON ATHEROSCLER NOS TYPE VESSEL, NATIV 03/02/2018 BAIMA, KYLAH L DRILL SETUP OPERATOR Ot 250.00 DIAB MELVA WO COMPL, TYPE II OR UNSPEC TY 03/02/2018 BAIMA, KYLAH L DRILL SETUP OPERATOR Ot 272.4 HYPERLIPIDEMIA NEC/NOS 03/02/2018 BAIMA, KYLAH L DRILL SETUP OPERATOR Ot 305.1 TOBACCO USE DISORDER 03/02/2018 BAIMA, KYLAH L DRILL SETUP OPERATOR Ot 401.9 HYPERTENSION NOS 03/02/2018 BAIMA, KYLAH L DRILL SETUP OPERATOR Ot 414.00 CORON ATHEROSCLER NOS TYPE VESSEL, NATIV 03/02/2018 BAIMA, KYLAH L DRILL SETUP OPERATOR Ot 424.90 ENDOCARDITIS NOS 03/02/2018 BAIMA, KYLAH L DRILL SETUP OPERATOR Ot 496 CHR AIRWAY OBSTRUCT NEC 03/02/2018 PATRICIA MCDONALD MD Ot 996.78 OTH COMP DUE TO OTH INTRNL ORTHPEDIC DEV 03/02/2018 PATRICIA MCDONALD MD Ot V72.63 PRE-PROCEDURAL LABORATORY EXAMINATION 03/02/2018 PATRICIA MCDONALD MD Ot V72.81 [id number] CARDIOVASCULAR 03/02/2018 PATRICIA MCDONALD MD Ot V74.8 SCREEN-BACTERIAL DIS NEC 03/02/2018 BYRON BOSS MD Ot 272.4 HYPERLIPIDEMIA NEC/NOS 03/02/2018 KARYN OLVERA, BYRON Bruner Ot 338.29 OTHER CHRONIC PAIN 03/02/2018 KARYN OLVERA, BYRON Bruner Ot 401.9 HYPERTENSION NOS 03/02/2018 BAIMA, KYLAH L DRILL SETUP OPERATOR Ot 414.00 CORON ATHEROSCLER NOS TYPE VESSEL, NATIV 03/02/2018 BAIMA, KYLAH L DRILL SETUP OPERATOR Ot 429.3 CARDIOMEGALY 03/02/2018 STEVENSON OLVERA, JEFERSON Bruner Ot V72.84 EXAM PRE-OPERATIVE NOS 03/02/2018 BAIMA, KYLAH L DRILL SETUP OPERATOR Ot 272.4 HYPERLIPIDEMIA NEC/NOS 03/02/2018 STEVENSON OLVERA, JEFERSON M Ot V72.84 EXAM PRE-OPERATIVE [...] DIZZINESS AND GIDDINESS 03/02/2018 BAIMA, KYLAH L DRILL SETUP OPERATOR Ot E78.5 HYPERLIPIDEMIA, UNSPECIFIED 03/02/2018 BAIMA, KYLAH L DRILL SETUP OPERATOR Ot I25.9 CHRONIC ISCHEMIC HEART DISEASE, UNSPECIF 03/02/2018 MADL, ETELVINA L DRILL SETUP OPERATOR Ot 414.00 CORON ATHEROSCLER NOS TYPE VESSEL, NATIV 03/02/2018 MADL, ETELVINA L DRILL SETUP OPERATOR Ot 780.2 SYNCOPE AND COLLAPSE 03/02/2018 MADL, ETELVINA L DRILL SETUP OPERATOR Ot V45.82 PERCUTANEOUS TRANSLUM CORON ANGIOPLASTY 03/02/2018 BAIMA, KYLAH L DRILL SETUP OPERATOR Ot 272.4 HYPERLIPIDEMIA NEC/NOS 03/02/2018 BAIMA, KYLAH L DRILL SETUP OPERATOR Ot 276.9 ELECTROLYT/FLUID DIS NEC 03/02/2018 BAIMA, KYLAH L DRILL SETUP OPERATOR Ot 401.9 HYPERTENSION NOS 03/02/2018 BAIMA, KYLAH L DRILL SETUP OPERATOR Ot 414.00 CORON ATHEROSCLER NOS TYPE VESSEL, [...] FACP CCDS Ot 530.81 ESOPHAGEAL REFLUX 03/02/2018 KYLAH CREWS DRILL SETUP OPERATOR Ot I71.4 ABDOMINAL AORTIC ANEURYSM, WITHOUT RUPTU [...] CCDS Ot I25.10 ATHSCL HEART DISEASE OF [place] CORONARY 03/02/2018 ADELFO [place] DRILL SETUP OPERATOR Ot I71.4 ABDOMINAL AORTIC ANEURYSM, WITHOUT RUPTU 03/02/2018 BILL LCEMENTE DO Ot Z12.31 ENCNTR SCREEN MAMMOGRAM FOR MALIGNANT NE 03/02/2018 BILL CLEMENTE DO Ot R92.8 OTH ABN AND INCONCLUSIVE FINDINGS ON DX 03/02/2018 KOFI OLVERA FACC, BRADLY FACP CCDS Ot E11.9 TYPE 2 DIABETES MELLITUS WITHOUT COMPLIC 03/02/2018 KOFI OLVERA FACC, ALI FACP CCDS Ot I10 ESSENTIAL (PRIMARY) HYPERTENSION 03/02/2018 KOFI OLVERA FACC, ALI FACP CCDS Ot I25.10 ATHSCL HEART DISEASE OF [place] CORONARY 03/02/2018 KOFI OLVERA FACC, ALI FACP [...] CCDS Ot I25.10 ATHSCL HEART DISEASE OF [place] CORONARY 03/02/2018 KOFI OLVERA FACC, ALI FACP [...] CCDS Ot I25.10 ATHSCL HEART DISEASE OF [place] CORONARY 03/02/2018 KOFI OLVERA FACC, ALI FACP CCDS Ot I25.5 ISCHEMIC CARDIOMYOPATHY 03/02/2018 KOFI OLVERA FACC, ALI FACP CCDS Ot I73.9 PERIPHERAL VASCULAR DISEASE, UNSPECIFIED 03/02/2018 KOFI OLVERA FACC, ALI FACP CCDS Ot J43.8 OTHER EMPHYSEMA 03/02/2018 KOFI OLVERA FACC, ALI FACP CCDS Ot R06.02 SHORTNESS OF BREATH 03/02/2018 KOFI OLVERA FACC, ALI FACP CCDS Ot Z72.0 TOBACCO USE 03/02/2018 KYLAH CREWS DRILL SETUP OPERATOR Ot I25.5 ISCHEMIC CARDIOMYOPATHY 03/02/2018 KOFI OLVERA FACC, ALI FACP CCDS Ot E11.9 TYPE 2 DIABETES MELLITUS WITHOUT COMPLIC 03/02/2018 KOFI OLVERA FACC, ALI FACP CCDS Ot E78.4 OTHER HYPERLIPIDEMIA 03/02/2018 KOFI OLVERA FACC, ALI FACP CCDS Ot I25.10 ATHSCL HEART DISEASE OF [place] CORONARY 03/02/2018 KOFI OLVERA FACC, ALI FACP CCDS Ot I25.5 ISCHEMIC CARDIOMYOPATHY 03/02/2018 KOFI OLVERA FACC, ALI FACP CCDS Ot I65.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 AND STENOSIS OF BILATERAL CALVERT 03/02/2018 KOFI OLVERA FACC, ALI FACP CCDS Ot I73.9 PERIPHERAL VASCULAR DISEASE, UNSPECIFIED 03/02/2018 KOFI OLVERA FACC, ALI FACP CCDS Ot R06.02 SHORTNESS OF BREATH 03/02/2018 KOFI OLVERA FACC, ALI FACP CCDS Ot Z72.0 TOBACCO USE 03/03/2018 LEONEL ORTIZ MD Ot E11.40 TYPE 2 DIABETES MELLITUS WITH DIABETIC N 03/03/2018 LEONEL ORTIZ MD Ot E78.00 PURE HYPERCHOLESTEROLEMIA, UNSPECIFIED 03/03/2018 LEONEL ORTIZ MD Ot F17.210 NICOTINE DEPENDENCE, CIGARETTES, UNCOMPL 03/03/2018 LEONEL ORTIZ MD Ot F32.9 MAJOR DEPRESSIVE DISORDER, SINGLE EPISOD 03/03/2018 LEONEL ORTIZ MD Ot I10 ESSENTIAL (PRIMARY) HYPERTENSION 03/03/2018 LEONEL ORTIZ MD Ot K21.0 GASTRO-ESOPHAGEAL REFLUX DISEASE WITH ES 03/03/2018 LEONEL ORTIZ MD Ot K22.2 ESOPHAGEAL OBSTRUCTION 03/03/2018 LEONEL ORTIZ MD Ot K29.70 GASTRITIS, UNSPECIFIED, WITHOUT BLEEDING 03/03/2018 LEONEL ORTIZ MD, Ot K44.9 DIAPHRAGMATIC HERNIA WITHOUT OBSTRUCTION 03/03/2018 LEONEL ORTIZ MD Ot Z79.899 OTHER ASSISTED (CURRENT) DRUG THERAPY 03/03/2018 LEONEL ORTIZ MD Ot Z88.1 ALLERGY STATUS TO OTHER ANTIBIOTIC AGENT 03/03/2018 LEONEL ROTIZ MD Ot Z88.5 ALLERGY STATUS TO NARCOTIC AGENT STATUS 03/03/2018 LEONEL ORTIZ MD Ot Z88.6 ALLERGY STATUS TO ANALGESIC AGENT STATUS 03/04/2018 LEONEL ORTIZ MD Ot E11.40 TYPE 2 DIABETES MELLITUS WITH DIABETIC N 03/04/2018 LEONEL ORTIZ MD Ot E78.00 PURE HYPERCHOLESTEROLEMIA, UNSPECIFIED 03/04/2018 LEONEL ORTIZ MD Ot F17.210 NICOTINE DEPENDENCE, CIGARETTES, UNCOMPL 03/04/2018 LEONEL ORTIZ MD Ot F32.9 MAJOR DEPRESSIVE DISORDER, SINGLE EPISOD 03/04/2018 LEONEL ORTIZ MD Ot I10 ESSENTIAL (PRIMARY) HYPERTENSION 03/04/2018 LEONEL ORTIZ MD Ot K21.0 GASTRO-ESOPHAGEAL REFLUX DISEASE WITH ES 03/04/2018 LEONEL ORTIZ MD Ot K22.2 ESOPHAGEAL OBSTRUCTION 03/04/2018 LEONEL ORTIZ MD Ot K29.70 GASTRITIS, UNSPECIFIED, WITHOUT BLEEDING 03/04/2018 LEONEL ORTIZ MD Ot K44.9 DIAPHRAGMATIC HERNIA WITHOUT OBSTRUCTION 03/04/2018 LEONEL ORTIZ MD Ot Z79.899 OTHER ASSISTED (CURRENT) DRUG THERAPY 03/04/2018 LEONEL ORTIZ MD Ot Z88.1 ALLERGY STATUS TO OTHER ANTIBIOTIC AGENT 03/04/2018 LEONEL ORTIZ MD Ot Z88.5 ALLERGY STATUS TO NARCOTIC AGENT STATUS 03/04/2018 LEONEL ORTIZ MD Ot Z88.6 ALLERGY STATUS TO ANALGESIC AGENT STATUS 03/09/2018 KOFI OLVERA FACC, ALI FACP CCDS Ot E11.9 TYPE 2 DIABETES MELLITUS WITHOUT COMPLIC 03/09/2018 KOFI OLVERA FACC, ALI FACP CCDS Ot F17.210 NICOTINE DEPENDENCE, CIGARETTES, UNCOMPL 03/09/2018 KOFI OLVERA FACC, ALI FACP CCDS Ot F32.9 MAJOR DEPRESSIVE DISORDER, SINGLE EPISOD 03/09/2018 KOFI OLVERA FACC, ALI FACP CCDS Ot F41.9 ANXIETY DISORDER, UNSPECIFIED 03/09/2018 KOFI OLVERA FACC, ALI FACP CCDS Ot I25.10 ATHSCL HEART DISEASE OF [place] CORONARY 03/09/2018 KOFI OLVERA FACC, ALI FACP CCDS Ot I25.5 ISCHEMIC CARDIOMYOPATHY 03/09/2018 KOFI OLVERA FACC, ALI FACP CCDS Ot I44.7 LEFT BUNDLE-BRANCH BLOCK, UNSPECIFIED 03/09/2018 KOFI OLVERA FACC, ALI FACP CCDS Ot I50.22 CHRONIC SYSTOLIC (CONGESTIVE) HEART FAIL 03/09/2018 KOFI OLVERA FACC, ALI FACP CCDS Ot I65.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 AND STENOSIS OF BILATERAL CALVERT 03/09/2018 KOFI OLVERA FACC, ALI FACP CCDS Ot J44.9 CHRONIC OBSTRUCTIVE PULMONARY DISEASE, U 03/09/2018 KOFI OLVERA FACC, ALI FACP CCDS Ot R00.2 PALPITATIONS 03/09/2018 KOFI OLVERA FACC, ALI FACP CCDS Ot R06.02 SHORTNESS OF BREATH 03/09/2018 KOFI OLVERA FACC, ALI FACP CCDS Ot R13.10 DYSPHAGIA, UNSPECIFIED 03/09/2018 KOFI OLVERA FACC, ALI FACP CCDS Ot Z79.82 ASSISTED (CURRENT) USE OF ASPIRIN 03/09/2018 KOFI OLVERA FACC, ALI FACP CCDS Ot 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 03/09/2018 KOFI OLVERA FACC, ALI FACP CCDS Ot Z79.899 OTHER ASSISTED (CURRENT) DRUG THERAPY 03/09/2018 KOFI OLVERA FACC, ALI FACP CCDS Ot Z95.5 PRESENCE OF CORONARY ANGIOPLASTY IMPLANT 03/10/2018 LEONEL ORTIZ MD Ot E11.40 TYPE 2 DIABETES MELLITUS WITH DIABETIC N 03/10/2018 LEONEL ORTIZ MD Ot E78.00 PURE HYPERCHOLESTEROLEMIA, UNSPECIFIED 03/10/2018 LEONEL ORTIZ MD Ot F17.210 NICOTINE DEPENDENCE, CIGARETTES, UNCOMPL 03/10/2018 LEONEL ORTIZ MD Ot F32.9 MAJOR DEPRESSIVE DISORDER, SINGLE EPISOD 03/10/2018 LEONEL ORTIZ MD Ot I10 ESSENTIAL (PRIMARY) HYPERTENSION 03/10/2018 LEONEL ORTIZ MD Ot K21.0 GASTRO-ESOPHAGEAL REFLUX DISEASE WITH ES 03/10/2018 LEONEL ORTIZ MD Ot K22.2 ESOPHAGEAL OBSTRUCTION 03/10/2018 LEONEL ORTIZ MD, Ot K29.70 GASTRITIS, UNSPECIFIED, WITHOUT BLEEDING 03/10/2018 LEONEL ORTIZ MD Ot K44.9 DIAPHRAGMATIC HERNIA WITHOUT OBSTRUCTION 03/10/2018 LEONEL ORTIZ MD, Ot Z79.899 OTHER GENERAL MERCHANDISE SALESPERSON (CURRENT) DRUG THERAPY 03/10/2018 LEONEL ORTIZ MD Ot Z88.1 ALLERGY STATUS TO OTHER ANTIBIOTIC AGENT 03/10/2018 LEONEL ORTIZ MD Ot Z88.5 ALLERGY STATUS TO NARCOTIC AGENT STATUS 03/10/2018 LEONEL ORTIZ MD Ot Z88.6 ALLERGY STATUS TO ANALGESIC AGENT STATUS 03/10/2018 KOFI OLVERA FACC, ALI FACP CCDS Ot E11.9 TYPE 2 DIABETES MELLITUS WITHOUT COMPLIC 03/10/2018 KOFI OLVERA FACC, ALI FACP CCDS Ot F17.210 NICOTINE DEPENDENCE, CIGARETTES, UNCOMPL 03/10/2018 KOFI HERNÁNDEZC, ALI FACP CCDS Ot F32.9 MAJOR DEPRESSIVE DISORDER, SINGLE EPISOD 03/10/2018 KOFI OLVERA FACC, ALI FACP CCDS Ot F41.9 ANXIETY DISORDER, UNSPECIFIED 03/10/2018 KOFI OLVERA FACC, ALI FACP CCDS Ot I25.10 ATHSCL HEART DISEASE OF [place] CORONARY 03/10/2018 KOFI HERNÁNDEZC, ALI FACP CCDS Ot I25.5 ISCHEMIC CARDIOMYOPATHY 03/10/2018 KOFI OLVERA FACC, ALI FACP CCDS Ot I44.7 LEFT BUNDLE-BRANCH BLOCK, UNSPECIFIED 03/10/2018 KOFI OLVERA FACC, BRADLY FACP CCDS Ot I50.22 CHRONIC SYSTOLIC (CONGESTIVE) HEART FAIL 03/10/2018 KOFI OLVERA FACC, BRADLY FACP CCDS Ot I65.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 AND STENOSIS OF BILATERAL CALVERT 03/10/2018 KOFI OLVERA FACC, ALI FACP CCDS Ot J44.9 CHRONIC OBSTRUCTIVE PULMONARY DISEASE, U 03/10/2018 KOFI OLVERA FACC, BRADLY FACP CCDS Ot R00.2 PALPITATIONS 03/10/2018 KOFI OLVERA FACC, BRADLY FACP CCDS Ot R06.02 SHORTNESS OF BREATH 03/10/2018 BRADLY KIRBY MD, FACC FACP CCDS Ot R13.10 DYSPHAGIA, UNSPECIFIED 03/10/2018 BRADLY KIRBY MD, FACC FACP CCDS Ot 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 03/10/2018 BRADLY KIRBY MD, FACC FACP CCDS Ot Z79.84 ASSISTED (CURRENT) USE OF ORAL HYPOGLYC 03/10/2018 BRADLY KIRBY MD, FACC FACP CCDS Ot Z79.899 OTHER ASSISTED (CURRENT) DRUG THERAPY 03/10/2018 BRADLY KIRBY MD, FACC FACP CCDS Ot Z95.5 PRESENCE OF CORONARY ANGIOPLASTY IMPLANT 03/10/2018 KOFI OLVERA FACC, BRADLY FACP CCDS Ot E11.9 TYPE 2 DIABETES MELLITUS WITHOUT COMPLIC 03/10/2018 KOFI OLVERA FACC, ALI FACP CCDS Ot F17.210 NICOTINE DEPENDENCE, CIGARETTES, UNCOMPL 03/10/2018 KOFI OLVERA FACC, ALI FACP CCDS Ot F32.9 MAJOR DEPRESSIVE DISORDER, SINGLE EPISOD 03/10/2018 BRADLY KIRBY MD, FACC FACP CCDS Ot F41.9 ANXIETY DISORDER, UNSPECIFIED 03/10/2018 BRADLY KIRBY MD, FACC FACP CCDS Ot I25.10 ATHSCL HEART DISEASE OF [place] CORONARY 03/10/2018 BRADLY KIRBY MD, FACC FACP CCDS Ot I25.5 ISCHEMIC CARDIOMYOPATHY 03/10/2018 KOFI OLVERA FACC, ALI FACP CCDS Ot I44.7 LEFT BUNDLE-BRANCH BLOCK, UNSPECIFIED 03/10/2018 BRADLY KIRBY MD, FACC FACP CCDS Ot I50.22 CHRONIC SYSTOLIC (CONGESTIVE) HEART FAIL 03/10/2018 KOFI MD FACC, ALI FACP CCDS Ot I65.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 AND STENOSIS OF BILATERAL CALVERT 03/10/2018 KOFI OLVERA FACC, ALI FACP CCDS Ot J44.9 CHRONIC OBSTRUCTIVE PULMONARY DISEASE, U 03/10/2018 KOFI OLVERA FACC, ALI FACP CCDS Ot R00.2 PALPITATIONS 03/10/2018 KOFI OLVERA FACTj, ALI FACP CCDS Ot R06.02 SHORTNESS OF BREATH 03/10/2018 KOFI OLVERA FACC, ALI FACP CCDS Ot R13.10 DYSPHAGIA, UNSPECIFIED 03/10/2018 KOFI OLVERA FACC, ALI FACP CCDS Ot 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 03/10/2018 KOFI HERNÁNDEZC, ALI FACP CCDS Ot 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 03/10/2018 KOFI OLVERA FACC, ALI FACP CCDS Ot Z79.899 OTHER ASSISTED (CURRENT) DRUG THERAPY 03/10/2018 KOFI OLVERA FACC, ALI FACP CCDS Ot Z95.5 PRESENCE OF CORONARY ANGIOPLASTY IMPLANT 04/08/2018 EDUARDO VILLEGAS MD Ot 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 04/08/2018 EDUARDO VILLEGAS MD Ot 788.30 UNSPECIFIED URINARY INCONTINENCE 04/08/2018 EDUARDO VILLEGAS MD Ot V72.63 PRE-PROCEDURAL LABORATORY EXAMINATION 04/08/2018 EDUARDO VILLEGAS MD Ot V74.8 SCREEN-BACTERIAL DIS NEC 04/08/2018 EDUARDO VILLEGAS MD Ot 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 04/08/2018 EDUARDO VILLEGAS MD Ot 788.30 UNSPECIFIED URINARY INCONTINENCE 04/08/2018 EDUARDO VILLEGAS MD Ot V72.63 PRE-PROCEDURAL LABORATORY EXAMINATION 04/08/2018 EDUARDO VILLEGAS MD Ot V74.8 SCREEN-BACTERIAL DIS NEC 04/08/2018 KYLAH CREWS DRILL SETUP OPERATOR Ot 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 04/08/2018 KYLAH CREWS DRILL SETUP OPERATOR Ot 397.0 TRICUSPID VALVE DISEASE 04/08/2018 KYLAH CREWS DRILL SETUP OPERATOR Ot 401.9 HYPERTENSION NOS 04/08/2018 KYLAH CREWS DRILL SETUP OPERATOR Ot 414.00 CORON ATHEROSCLER NOS TYPE VESSEL, NATIV 04/08/2018 KYLAH CREWS L DRILL SETUP OPERATOR Ot 250.00 DIAB MELVA WO COMPL, TYPE II OR UNSPEC TY 04/08/2018 BAIJENNIFFER KYLAH L DRILL SETUP OPERATOR Ot 272.4 HYPERLIPIDEMIA NEC/NOS 04/08/2018 BAIJENNIFFER KYLAH L DRILL SETUP OPERATOR Ot 305.1 TOBACCO USE DISORDER 04/08/2018 SCARLETT CREWSHER L DRILL SETUP OPERATOR Ot 401.9 HYPERTENSION NOS 04/08/2018 BAIJENNIFFER KYLAH L DRILL SETUP OPERATOR Ot 414.00 CORON ATHEROSCLER NOS TYPE VESSEL, NATIV 04/08/2018 BAIJENNIFFER KYLAH L DRILL SETUP OPERATOR Ot 424.90 ENDOCARDITIS NOS 04/08/2018 KYLAH CREWS L DRILL SETUP OPERATOR Ot 496 CHR AIRWAY OBSTRUCT NEC 04/08/2018 PATRICIA MCDONALD MD Ot 996.78 OTH COMP DUE TO OTH INTRNL ORTHPEDIC DEV 04/08/2018 PATRICIA MCDONALD MD, Ot V72.63 PRE-PROCEDURAL LABORATORY EXAMINATION 04/08/2018 PATRICIA MCDONALD MD Ot V72.81 SHUB-[id number] CARDIOVASCULAR 04/08/2018 PATRICIA MCDONALD MD Ot V74.8 SCREEN-BACTERIAL DIS NEC 04/08/2018 BYRON BOSS MD Ot 272.4 HYPERLIPIDEMIA NEC/NOS 04/08/2018 BYRON BOSS MD Ot 338.29 OTHER CHRONIC PAIN 04/08/2018 BYRON BOSS MD Ot 401.9 HYPERTENSION NOS 04/08/2018 KYLAH CREWS L DRILL SETUP OPERATOR Ot 414.00 CORON ATHEROSCLER NOS TYPE VESSEL, NATIV 04/08/2018 PERLAKYLAH ABAD L DRILL SETUP OPERATOR Ot 429.3 CARDIOMEGALY 04/08/2018 JEFERSON SALDANA MD Ot V72.84 EXAM PRE-OPERATIVE NOS 04/08/2018 PERLAKYLAH ABAD L DRILL SETUP OPERATOR Ot 272.4 HYPERLIPIDEMIA NEC/NOS 04/08/2018 JEFERSON SALDANA MD Ot V72.84 EXAM PRE-OPERATIVE NOS 04/08/2018 KOFI OLVERA FACC, ALI FACP CCDS Ot 272.4 HYPERLIPIDEMIA NEC/NOS 04/08/2018 KOFI OLVERA FACC, ALI FACP CCDS Ot 414.00 CORON ATHEROSCLER NOS TYPE VESSEL, NATIV 04/08/2018 KOFI OLVERA FACC, ALI FACP CCDS Ot 414.8 CHR ISCHEMIC HRT DIS NEC 04/08/2018 KOFI OLVERA FACC, ALI FACP CCDS Ot 458.9 HYPOTENSION NOS 04/08/2018 KOFI OLVERA FACC, ALI FACP CCDS Ot 780.4 DIZZINESS AND GIDDINESS 04/08/2018 BAIJENNIFFER, KYLAH L DRILL SETUP OPERATOR Ot E78.5 HYPERLIPIDEMIA, UNSPECIFIED 04/08/2018 BAIMA, KYLAH L DRILL SETUP OPERATOR Ot I25.9 CHRONIC ISCHEMIC HEART DISEASE, UNSPECIF 04/08/2018 MADL, ETELVINA L DRILL SETUP OPERATOR Ot 414.00 CORON ATHEROSCLER NOS TYPE VESSEL, NATIV 04/08/2018 MADL, ETELVINA L DRILL SETUP OPERATOR Ot 780.2 SYNCOPE AND COLLAPSE 04/08/2018 MADL, ETELVINA L DRILL SETUP OPERATOR Ot V45.82 PERCUTANEOUS TRANSLUM CORON ANGIOPLASTY 04/08/2018 BAIMA, KYLAH L DRILL SETUP OPERATOR Ot 272.4 HYPERLIPIDEMIA NEC/NOS 04/08/2018 BAIMA, KYLAH L DRILL SETUP OPERATOR Ot 276.9 ELECTROLYT/FLUID DIS NEC 04/08/2018 BAIJENNIFFER, KYLAH L DRILL SETUP OPERATOR Ot 401.9 HYPERTENSION NOS 04/08/2018 BAIJENNIFFER, KYLAH L DRILL SETUP OPERATOR Ot 414.00 CORON ATHEROSCLER NOS TYPE VESSEL, NATIV 04/08/2018 GELLENDER DO, BILL A Ot 250.00 DIAB MELVA WO COMPL, TYPE II OR UNSPEC TY 04/08/2018 GELBILL HAYES DO Ot 272.4 HYPERLIPIDEMIA NEC/NOS 04/08/2018 AMELIALENDER DO BILL A Ot 414.00 CORON ATHEROSCLER NOS TYPE VESSEL, NATIV 04/08/2018 AMELIABILL HAYES DO Ot 724.5 BACKACHE NOS 04/08/2018 BILL CLEMENTE DO Ot 733.90 BONE CARTILAGE DIS NOS 04/08/2018 GELLENDER BILL PRAKASH A Ot 715.37 LOC OSTEOARTH NOS-ANKLE 04/08/2018 KOFI OLVERA FACC, ALI FACP CCDS Ot 250.00 DIAB MELVA WO COMPL, TYPE II OR UNSPEC TY 04/08/2018 KOIF OLVERA FACC, ALI FACP CCDS Ot 272.4 HYPERLIPIDEMIA NEC/NOS 04/08/2018 KOFI OLVERA FACC, ALI FACP CCDS Ot 278.00 OBESITY, NOS 04/08/2018 KOFI OLVERA FACC, ALI FACP CCDS Ot 305.1 TOBACCO USE DISORDER 04/08/2018 KOFI OLVERA FACC, ALI FACP CCDS Ot 401.9 HYPERTENSION NOS 04/08/2018 KOFI HERNÁNDEZC, BRADLY FACP CCDS Ot 414.00 CORON ATHEROSCLER NOS TYPE VESSEL, NATIV 04/08/2018 KOFI OLVERA FACC, BRADLY FACP CCDS Ot 447.72 ABDOMINAL AORTIC ECTASIA 04/08/2018 KOFI OLVERA FACC, ALI FACP CCDS Ot 458.9 HYPOTENSION NOS 04/08/2018 KOFI OLVERA FACC, BRADLY FACP CCDS Ot 496 CHR AIRWAY OBSTRUCT NEC 04/08/2018 KOFI OLVERA FACC, BRADLY FACP CCDS Ot 530.81 ESOPHAGEAL REFLUX 04/08/2018 PERLAJENNIFFER KYLAH L DRILL SETUP OPERATOR Ot I71.4 ABDOMINAL AORTIC ANEURYSM, WITHOUT RUPTU 04/08/2018 BRYN PRAKASHBILL Ot 250.00 DIAB MELVA WO COMPL, TYPE II OR UNSPEC TY 04/08/2018 BRYN PRAKASH BILL Radha Ot 959.7 LOWER LEG INJURY NOS 04/08/2018 BILL CLEMENTE DO Radha Ot E000.8 OTHER EXTERNAL CAUSE STATUS 04/08/2018 BRYN PRAKASHBILL Ot E928.9 ACCIDENT NOS 04/08/2018 BILL CLEMENTE DO Radha Ot N39.0 URINARY TRACT INFECTION, SITE NOT SPECIF 04/08/2018 KOFI OLVERA FACC, BRADLY FACP CCDS Ot E78.5 HYPERLIPIDEMIA, UNSPECIFIED 04/08/2018 KOFI OLVERA FACC, BRADLY FACP CCDS Ot I25.10 ATHSCL HEART DISEASE OF [place] CORONARY 04/08/2018 ADELFO W[place] DRILL SETUP OPERATOR Ot I71.4 ABDOMINAL AORTIC ANEURYSM, WITHOUT RUPTU 04/08/2018 BRYN PRAKASHBILL Ot Z12.31 ENCNTR SCREEN MAMMOGRAM FOR MALIGNANT NE 04/08/2018 BRYN PRAKASHBILL Ot R92.8 OTH ABN AND INCONCLUSIVE FINDINGS ON DX 04/08/2018 KOFI OLVERA FACC, BRADLY FACP CCDS Ot E11.9 TYPE 2 DIABETES MELLITUS WITHOUT COMPLIC 04/08/2018 KOFI OLVERA FACC, BRADLY FACP CCDS Ot I10 ESSENTIAL (PRIMARY) HYPERTENSION 04/08/2018 KOFI OLVERA FACC, BRADLY FACP CCDS Ot I25.10 ATHSCL HEART DISEASE OF [place] CORONARY 04/08/2018 KOFI OLVERA FACC, BRADLY FACP CCDS Ot I25.5 ISCHEMIC CARDIOMYOPATHY 04/08/2018 KOFI MD FACC, ALI FACP CCDS Ot I73.9 PERIPHERAL VASCULAR DISEASE, UNSPECIFIED 04/08/2018 KOFI OLVERA FACC, ALI FACP CCDS Ot J43.8 OTHER EMPHYSEMA 04/08/2018 KOFI MD FACC, ALI FACP CCDS Ot R06.02 SHORTNESS OF BREATH 04/08/2018 KOFI MD FACC, ALI FACP CCDS Ot Z72.0 TOBACCO USE 04/08/2018 KOFI OLVERA FACC, ALI FACP CCDS Ot E11.9 TYPE 2 DIABETES MELLITUS WITHOUT COMPLIC 04/08/2018 KOFI MD FACC, ALI FACP CCDS Ot I10 ESSENTIAL (PRIMARY) HYPERTENSION 04/08/2018 KOFI OLVERA FACC, ALI FACP CCDS Ot I25.10 ATHSCL HEART DISEASE OF [place] CORONARY 04/08/2018 KOFI OLVERA FACC, ALI FACP CCDS Ot I25.5 ISCHEMIC CARDIOMYOPATHY 04/08/2018 KOFI OLVERA FACC, ALI FACP CCDS Ot I73.9 PERIPHERAL VASCULAR DISEASE, UNSPECIFIED 04/08/2018 KOFI OLVERA FACC, ALI FACP CCDS Ot J43.8 OTHER EMPHYSEMA 04/08/2018 KOFI OLVERA FACC, ALI FACP CCDS Ot R06.02 SHORTNESS OF BREATH 04/08/2018 KOFI OLVERA FACC, ALI FACP CCDS Ot Z72.0 TOBACCO USE 04/08/2018 KOFI OLVERA FACC, ALI FACP CCDS Ot E11.9 TYPE 2 DIABETES MELLITUS WITHOUT COMPLIC 04/08/2018 KOFI OLVERA FACC, ALI FACP CCDS Ot I10 ESSENTIAL (PRIMARY) HYPERTENSION 04/08/2018 KOFI OLVERA FACC, ALI FACP CCDS Ot I25.10 ATHSCL HEART DISEASE OF [place] CORONARY 04/08/2018 KOFI OLVERA FACC, ALI FACP CCDS Ot I25.5 ISCHEMIC CARDIOMYOPATHY 04/08/2018 KOFI OLVERA FACC, ALI FACP CCDS Ot I73.9 PERIPHERAL VASCULAR DISEASE, UNSPECIFIED 04/08/2018 KOFI OLVERA FACC, ALI FACP CCDS Ot J43.8 OTHER EMPHYSEMA 04/08/2018 KOFI OLVERA FACC, ALI FACP CCDS Ot R06.02 SHORTNESS OF BREATH 04/08/2018 KOFI OLVERA FACC, ALI FACP CCDS Ot Z72.0 TOBACCO USE 04/08/2018 BAIMA, KYLAH L DRILL SETUP OPERATOR Ot I25.5 ISCHEMIC CARDIOMYOPATHY 04/08/2018 KOFI OLVERA FACC, ALI FACP CCDS Ot E11.9 TYPE 2 DIABETES MELLITUS WITHOUT COMPLIC 04/08/2018 KOFI HERNÁNDEZC, ALI FACP CCDS Ot E78.4 OTHER HYPERLIPIDEMIA 04/08/2018 KOFI OLVERA FACC, ALI FACP CCDS Ot I25.10 ATHSCL HEART DISEASE OF [place] CORONARY 04/08/2018 KOFI OLVERA FACC, ALI FACP CCDS Ot I25.5 ISCHEMIC CARDIOMYOPATHY 04/08/2018 KOFI OLVERA FACC, ALI FACP CCDS Ot I65.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 AND STENOSIS OF BILATERAL CALVERT 04/08/2018 KOFI OLVERA FACC, ALI FACP CCDS Ot I73.9 PERIPHERAL VASCULAR DISEASE, UNSPECIFIED 04/08/2018 KOFI OLVERA FACC, ALI FACP CCDS Ot R06.02 SHORTNESS OF BREATH 04/08/2018 KOFI HERNÁNDEZC, ALI FACP CCDS Ot Z72.0 TOBACCO USE 04/08/2018 KOFI HERNÁNDEZC, ALI FACP CCDS Ot E66.9 OBESITY, UNSPECIFIED 04/08/2018 KOFI HERNÁNDEZC, ALI FACP CCDS Ot I10 ESSENTIAL (PRIMARY) HYPERTENSION 04/08/2018 KOFI OLVERA FACC, ALI FACP CCDS Ot I25.10 ATHSCL HEART DISEASE OF [place] CORONARY 04/08/2018 KOFI HERNÁNDEZC, ALI FACP CCDS Ot I65.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 AND STENOSIS OF BILATERAL CALVERT 04/08/2018 KOFI OLVERA FACC, ALI FACP CCDS Ot I71.4 ABDOMINAL AORTIC ANEURYSM, WITHOUT RUPTU 04/08/2018 KOFI OLVERA FACC, ALI FACP CCDS Ot R07.89 OTHER CHEST PAIN 04/08/2018 KOFI OLVERA FACC, ALI FACP CCDS Ot R91.8 OTHER NONSPECIFIC ABNORMAL FINDING OF [place] 04/08/2018 KOFI OLVERA FACC, ALI FACP CCDS Ot Z72.0 TOBACCO USE 04/08/2018 KOFI HERNÁNDEZC, ALI FACP CCDS Ot Z95.828 PRESENCE OF OTHER VASCULAR IMPLANTS AND 04/08/2018 KOFI HERNÁNDEZC, ALI FACP CCDS Ot E66.9 OBESITY, UNSPECIFIED 04/08/2018 KOFI HERNÁNDEZC, ALI FACP CCDS Ot I10 ESSENTIAL (PRIMARY) HYPERTENSION 04/08/2018 KOFI OLVERA FACC, ALI FACP CCDS Ot I25.10 ATHSCL HEART DISEASE OF [place] CORONARY 04/08/2018 KOFI OLVERA FACC, ALI FACP CCDS Ot I65.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 AND STENOSIS OF BILATERAL CALVERT 04/08/2018 KOFI OLVERA FACC, ALI FACP CCDS Ot I71.4 ABDOMINAL AORTIC ANEURYSM, WITHOUT RUPTU 04/08/2018 KOFI OLVERA FACC, ALI FACP CCDS Ot R07.89 OTHER CHEST PAIN 04/08/2018 KOFI OLVERA FACC, ALI FACP CCDS Ot R91.8 OTHER NONSPECIFIC ABNORMAL FINDING OF [place] 04/08/2018 KOFI OLVERA FACC, ALI FACP CCDS Ot Z72.0 TOBACCO USE 04/08/2018 KOFI OLVERA FACC, ALI FACP CCDS Ot Z95.828 PRESENCE OF OTHER VASCULAR IMPLANTS AND 04/08/2018 KOFI HERNÁNDEZC, ALI FACP CCDS Ot E11.9 TYPE 2 DIABETES MELLITUS WITHOUT COMPLIC 04/08/2018 KOFI OLVERA FACTj, ALI FACP CCDS Ot I10 ESSENTIAL (PRIMARY) HYPERTENSION 04/08/2018 KOFI OLVERA FACC, ALI FACP CCDS Ot I25.10 ATHSCL HEART DISEASE OF [place] CORONARY 04/08/2018 KOFI OLVERA FACTj, ALI FACP CCDS Ot I25.5 ISCHEMIC CARDIOMYOPATHY 04/08/2018 KOFI OLVERA FACC, ALI FACP CCDS Ot I73.9 PERIPHERAL VASCULAR DISEASE, UNSPECIFIED 04/08/2018 KOFI OLVERA FACC, ALI FACP CCDS Ot J43.8 OTHER EMPHYSEMA 04/08/2018 KOFI OLVERA FACC, ALI FACP CCDS Ot R06.02 SHORTNESS OF BREATH 04/08/2018 KOFI HERNÁNDEZC, ALI FACP CCDS Ot Z72.0 TOBACCO USE 04/23/2018 KOFI OLVERA FACC, ALI FACP CCDS Ot E66.9 OBESITY, UNSPECIFIED 04/23/2018 KOFI OLVERA FACC, ALI FACP CCDS Ot I10 ESSENTIAL (PRIMARY) HYPERTENSION 04/23/2018 KOFI OLVERA FACC, ALI FACP CCDS Ot I25.10 ATHSCL HEART DISEASE OF [place] CORONARY 04/23/2018 KOFI OLVERA FACC, ALI FACP CCDS Ot I65.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 AND STENOSIS OF BILATERAL CALVERT 04/23/2018 KOFI OLVERA FACC, ALI FACP CCDS Ot I71.4 ABDOMINAL AORTIC ANEURYSM, WITHOUT RUPTU 04/23/2018 KOFI OLVERA FACC, ALI FACP CCDS Ot R07.89 OTHER CHEST PAIN 04/23/2018 KOFI OLVERA FACC, BRADLY FACP CCDS Ot R91.8 OTHER NONSPECIFIC ABNORMAL FINDING OF [place] 04/23/2018 KOFI OLVERA FACC, BRADLY FACP CCDS Ot Z72.0 TOBACCO USE 04/23/2018 KOFI OLVERA FACC, BRADLY FACP CCDS Ot Z95.828 PRESENCE OF OTHER VASCULAR IMPLANTS AND 04/23/2018 EDUARDO VILLEGAS MD Ot 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 04/23/2018 EDUARDO VILLEGAS MD Ot 788.30 UNSPECIFIED URINARY INCONTINENCE 04/23/2018 EDUARDO VILLEGAS MD Ot V72.63 PRE-PROCEDURAL LABORATORY EXAMINATION 04/23/2018 EDUARDO VILLEGAS MD Ot V74.8 SCREEN-BACTERIAL DIS NEC 04/23/2018 EDUARDO VILLEGAS MD Ot 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 04/23/2018 EDUARDO VILLEGAS MD Ot 788.30 UNSPECIFIED URINARY INCONTINENCE 04/23/2018 EDUARDO VILLEGAS MD Ot V72.63 PRE-PROCEDURAL LABORATORY EXAMINATION 04/23/2018 EDUARDO VILLEGAS MD Ot V74.8 SCREEN-BACTERIAL DIS NEC 04/23/2018 ELEONORA KYLAH L DRILL SETUP OPERATOR Ot 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 04/23/2018 ELEONORA KYLAH L DRILL SETUP OPERATOR Ot 397.0 TRICUSPID VALVE DISEASE 04/23/2018 BAIMA, KYLAH L DRILL SETUP OPERATOR Ot 401.9 HYPERTENSION NOS 04/23/2018 BAIMA, KYLAH L DRILL SETUP OPERATOR Ot 414.00 CORON ATHEROSCLER NOS TYPE VESSEL, NATIV 04/23/2018 BAIMA, KYLAH L DRILL SETUP OPERATOR Ot 250.00 DIAB MELVA WO COMPL, TYPE II OR UNSPEC TY 04/23/2018 BAIMA, KYLAH L DRILL SETUP OPERATOR Ot 272.4 HYPERLIPIDEMIA NEC/NOS 04/23/2018 BAIMA, KYLAH L DRILL SETUP OPERATOR Ot 305.1 TOBACCO USE DISORDER 04/23/2018 BAIMA, KYLAH L DRILL SETUP OPERATOR Ot 401.9 HYPERTENSION NOS 04/23/2018 BAIMA, KYLAH L DRILL SETUP OPERATOR Ot 414.00 CORON ATHEROSCLER NOS TYPE VESSEL, NATIV 04/23/2018 ELEONORA KYLAH L DRILL SETUP OPERATOR Ot 424.90 ENDOCARDITIS NOS 04/23/2018 ELEONORA KYLAH L DRILL SETUP OPERATOR Ot 496 CHR AIRWAY OBSTRUCT NEC 04/23/2018 PATRICIA MCDONALD MD Ot 996.78 OTH COMP DUE TO OTH INTRNL ORTHPEDIC DEV 04/23/2018 PATRICIA MCDONALD MD Ot V72.63 PRE-PROCEDURAL LABORATORY EXAMINATION 04/23/2018 PATRICIA MCDONALD MD Ot V72.81 [id number] CARDIOVASCULAR 04/23/2018 PATRICIA MCDONALD MD Ot V74.8 SCREEN-BACTERIAL DIS NEC 04/23/2018 BYRON BOSS MD Ot 272.4 HYPERLIPIDEMIA NEC/NOS 04/23/2018 BYRON BOSS MD Ot 338.29 OTHER CHRONIC PAIN 04/23/2018 BYRON BOSS MD Ot 401.9 HYPERTENSION NOS 04/23/2018 ELEONORA KYLAH L DRILL SETUP OPERATOR Ot 414.00 CORON ATHEROSCLER NOS TYPE VESSEL, NATIV 04/23/2018 ELEONORA KYLAH L DRILL SETUP OPERATOR Ot 429.3 CARDIOMEGALY 04/23/2018 JEFERSON SALDANA MD Ot V72.84 EXAM PRE-OPERATIVE NOS 04/23/2018 PERLAMASCARLETTKYLAH L DRILL SETUP OPERATOR Ot 272.4 HYPERLIPIDEMIA NEC/NOS 04/23/2018 JEFERSON SALDANA MD Ot V72.84 EXAM PRE-OPERATIVE NOS 04/23/2018 KOFI OLVERA FACTj, ALI FACP CCDS Ot 272.4 HYPERLIPIDEMIA NEC/NOS 04/23/2018 KOFI OLVERA FACC, ALI FACP CCDS Ot 414.00 CORON ATHEROSCLER NOS TYPE VESSEL, NATIV 04/23/2018 KOFI OLVERA FACC, ALI FACP CCDS Ot 414.8 CHR ISCHEMIC HRT DIS NEC 04/23/2018 KOFI OLVERA FACC, ALI FACP CCDS Ot 458.9 HYPOTENSION NOS 04/23/2018 KOFI OLVERA FACC, ALI FACP CCDS Ot 780.4 DIZZINESS AND GIDDINESS 04/23/2018 ELEONORA, KYLAH L DRILL SETUP OPERATOR Ot E78.5 HYPERLIPIDEMIA, UNSPECIFIED 04/23/2018 PERLAMA, KYLAH L DRILL SETUP OPERATOR Ot I25.9 CHRONIC ISCHEMIC HEART DISEASE, UNSPECIF 04/23/2018 ETELVINA LEONARD L DRILL SETUP OPERATOR Ot 414.00 CORON ATHEROSCLER NOS TYPE VESSEL, NATIV 04/23/2018 ETELVINA LEONARD DRILL SETUP OPERATOR Ot 780.2 SYNCOPE AND COLLAPSE 04/23/2018 ETELVINA LEONARD DRILL SETUP OPERATOR Ot V45.82 PERCUTANEOUS TRANSLUM CORON ANGIOPLASTY 04/23/2018 KYLAH CREWS DRILL SETUP OPERATOR Ot 272.4 HYPERLIPIDEMIA NEC/NOS 04/23/2018 BAIKYLAH ABAD L DRILL SETUP OPERATOR Ot 276.9 ELECTROLYT/FLUID DIS NEC 04/23/2018 BAIKYLAH ABAD L DRILL SETUP OPERATOR Ot 401.9 HYPERTENSION NOS 04/23/2018 BAIKYLAH ABAD DRILL SETUP OPERATOR Ot 414.00 CORON ATHEROSCLER NOS TYPE VESSEL, NATIV 04/23/2018 GELLENDER DO, BILL A Ot 250.00 DIAB MELVA WO COMPL, TYPE II OR UNSPEC TY 04/23/2018 GELLENDER DO, BILL A Ot 272.4 HYPERLIPIDEMIA NEC/NOS 04/23/2018 GELLENDER DO, BILL A Ot 414.00 CORON ATHEROSCLER NOS TYPE VESSEL, NATIV 04/23/2018 AMELIAFREDDY PRAKASH BILL A Ot 724.5 BACKACHE NOS 04/23/2018 GELLENDER DO, BILL A Ot 733.90 BONE CARTILAGE DIS NOS 04/23/2018 GELLENDER DO, BILL A Ot 715.37 LOC OSTEOARTH NOS-ANKLE 04/23/2018 KOFI OLVERA FACC, ALI FACP CCDS Ot 250.00 DIAB MELVA WO COMPL, TYPE II OR UNSPEC TY 04/23/2018 KOFI OLVERA FACC, ALI FACP CCDS Ot 272.4 HYPERLIPIDEMIA NEC/NOS 04/23/2018 KOFI OLVERA FACC, ALI FACP CCDS Ot 278.00 OBESITY, NOS 04/23/2018 KOFI OLVERA FACC, ALI FACP CCDS Ot 305.1 TOBACCO USE DISORDER 04/23/2018 KOFI OLVERA FACC, ALI FACP CCDS Ot 401.9 HYPERTENSION NOS 04/23/2018 KOFI OLVERA FACC, ALI FACP CCDS Ot 414.00 CORON ATHEROSCLER NOS TYPE VESSEL, NATIV 04/23/2018 KOFI OLVERA FACC, ALI FACP CCDS Ot 447.72 ABDOMINAL AORTIC ECTASIA 04/23/2018 KOFI OLVERA FACC, ALI FACP CCDS Ot 458.9 HYPOTENSION NOS 04/23/2018 KOFI OLVERA FACC, ALI FACP CCDS Ot 496 CHR AIRWAY OBSTRUCT NEC 04/23/2018 KOFI OLVERA FACC, ALI FACP CCDS Ot 530.81 ESOPHAGEAL REFLUX 04/23/2018 PERLAJENNIFFER KYLAH Maxine DRILL SETUP OPERATOR Ot I71.4 ABDOMINAL AORTIC ANEURYSM, WITHOUT RUPTU 04/23/2018 BILL CLEMENTE DO Ot 250.00 DIAB MELVA WO COMPL, TYPE II OR UNSPEC TY 04/23/2018 BILL CLEMENTE DO Ot 959.7 LOWER LEG INJURY NOS 04/23/2018 BILL CLEMENTE DO Ot E000.8 OTHER EXTERNAL CAUSE STATUS 04/23/2018 BILL CLEMENTE DO Ot E928.9 ACCIDENT NOS 04/23/2018 BILL CLEMENTE DO Ot N39.0 URINARY TRACT INFECTION, SITE NOT SPECIF 04/23/2018 KOFI OLVERA FACC, ALI FACP CCDS Ot E78.5 HYPERLIPIDEMIA, UNSPECIFIED 04/23/2018 KOFI OLVERA FACC, ALI FACP CCDS Ot I25.10 ATHSCL HEART DISEASE OF [place] CORONARY 04/23/2018 ADELFO W[place] DRILL SETUP OPERATOR Ot I71.4 ABDOMINAL AORTIC ANEURYSM, WITHOUT RUPTU 04/23/2018 BILL CLEMENTE DO Ot Z12.31 ENCNTR SCREEN MAMMOGRAM FOR MALIGNANT NE 04/23/2018 BILL CLEMENTE DO Ot R92.8 OTH ABN AND INCONCLUSIVE FINDINGS ON DX 04/23/2018 KOFI OLVERA FACC, BRADLY FACP CCDS Ot E11.9 TYPE 2 DIABETES MELLITUS WITHOUT COMPLIC 04/23/2018 KOFI OLVERA FACC, ALI FACP CCDS Ot I10 ESSENTIAL (PRIMARY) HYPERTENSION 04/23/2018 KOFI OLVERA FACC, ALI FACP CCDS Ot I25.10 ATHSCL HEART DISEASE OF [place] CORONARY 04/23/2018 KOFI OLVERA FACC, ALI FACP CCDS Ot I25.5 ISCHEMIC CARDIOMYOPATHY 04/23/2018 KOFI OLVERA FACC, ALI FACP CCDS Ot I73.9 PERIPHERAL VASCULAR DISEASE, UNSPECIFIED 04/23/2018 KOFI OLVERA FACC, ALI FACP CCDS Ot J43.8 OTHER EMPHYSEMA 04/23/2018 KOFI OLVERA FACC, ALI FACP CCDS Ot R06.02 SHORTNESS OF BREATH 04/23/2018 KOFI OLVERA FACC, ALI FACP CCDS Ot Z72.0 TOBACCO USE 04/23/2018 KOFI MD FACC, ALI FACP CCDS Ot E11.9 TYPE 2 DIABETES MELLITUS WITHOUT COMPLIC 04/23/2018 KOFI OLVERA FACC, ALI FACP CCDS Ot I10 ESSENTIAL (PRIMARY) HYPERTENSION 04/23/2018 KOFI OLVERA FACC, ALI FACP CCDS Ot I25.10 ATHSCL HEART DISEASE OF [place] CORONARY 04/23/2018 KOFI OLVERA FACC, ALI FACP CCDS Ot I25.5 ISCHEMIC CARDIOMYOPATHY 04/23/2018 KOFI OLVERA FACC, ALI FACP CCDS Ot I73.9 PERIPHERAL VASCULAR DISEASE, UNSPECIFIED 04/23/2018 KOFI OLVERA FACC, ALI FACP CCDS Ot J43.8 OTHER EMPHYSEMA 04/23/2018 KOFI OLVERA FACC, ALI FACP CCDS Ot R06.02 SHORTNESS OF BREATH 04/23/2018 KOFI OLVERA FACC, ALI FACP CCDS Ot Z72.0 TOBACCO USE 04/23/2018 KOFI OLVERA FACC, ALI FACP CCDS Ot E11.9 TYPE 2 DIABETES MELLITUS WITHOUT COMPLIC 04/23/2018 KOFI OLVERA FACC, ALI FACP CCDS Ot I10 ESSENTIAL (PRIMARY) HYPERTENSION 04/23/2018 KOFI OLVERA FACC, ALI FACP CCDS Ot I25.10 ATHSCL HEART DISEASE OF [place] CORONARY 04/23/2018 KOFI OLVERA FACC, ALI FACP CCDS Ot I25.5 ISCHEMIC CARDIOMYOPATHY 04/23/2018 KOFI OLVERA FACC, ALI FACP CCDS Ot I73.9 PERIPHERAL VASCULAR DISEASE, UNSPECIFIED 04/23/2018 KOFI OLVERA FACC, ALI FACP CCDS Ot J43.8 OTHER EMPHYSEMA 04/23/2018 KOFI OLVERA FACC, ALI FACP CCDS Ot R06.02 SHORTNESS OF BREATH 04/23/2018 KOFI OLVERA FACC, ALI FACP CCDS Ot Z72.0 TOBACCO USE 04/23/2018 BAIKYLAH ABAD L DRILL SETUP OPERATOR Ot I25.5 ISCHEMIC CARDIOMYOPATHY 04/23/2018 KOFI OLVERA FACC, ALI FACP CCDS Ot E11.9 TYPE 2 DIABETES MELLITUS WITHOUT COMPLIC 04/23/2018 KOFI OLVERA FACC, ALI FACP CCDS Ot E78.4 OTHER HYPERLIPIDEMIA 04/23/2018 KOFI OLVERA FACC, ALI FACP CCDS Ot I25.10 ATHSCL HEART DISEASE OF [place] CORONARY 04/23/2018 KOFI OLVERA FACC, ALI FACP CCDS Ot I25.5 ISCHEMIC CARDIOMYOPATHY 04/23/2018 KOFI OLVERA FACC, ALI FACP CCDS Ot I65.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 AND STENOSIS OF BILATERAL CALVERT 04/23/2018 KOFI OLVERA FACC, ALI FACP CCDS Ot I73.9 PERIPHERAL VASCULAR DISEASE, UNSPECIFIED 04/23/2018 KOFI OLVERA FACC, ALI FACP CCDS Ot R06.02 SHORTNESS OF BREATH 04/23/2018 [facility], [facility]S Ot Z72.0 TOBACCO USE 04/23/2018 KOFI OLVERA FACC, ALI FACP CCDS Ot E66.9 OBESITY, UNSPECIFIED 04/23/2018 KOFI OLVERA FACC, ALI FACP CCDS Ot I10 ESSENTIAL (PRIMARY) HYPERTENSION 04/23/2018 KOFI OLVERA [facility], ALI FACP CCDS Ot I25.10 ATHSCL HEART DISEASE OF [place] CORONARY 04/23/2018 [facility], [facility] FACP CCDS Ot I65.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 AND STENOSIS OF BILATERAL CALVERT 04/23/2018 KOFI OLVERA [facility], ALI FACP CCDS Ot I71.4 ABDOMINAL AORTIC ANEURYSM, WITHOUT RUPTU 04/23/2018 KOFI OLVERA [facility], ALI FACP CCDS Ot R07.89 OTHER CHEST PAIN 04/23/2018 KOFI OLVERA [facility], ALI FACP CCDS Ot R91.8 OTHER NONSPECIFIC ABNORMAL FINDING OF [place] 04/23/2018 KOFI HERNÁNDEZ, ALI FACP CCDS Ot Z72.0 TOBACCO USE 04/23/2018 KOFI OLVERA [facility], ALI FACP CCDS Ot Z95.828 PRESENCE OF OTHER VASCULAR IMPLANTS AND 04/28/2018 JESSY PANDEY APRN Ot R06.83 SNORING 04/28/2018 JESSY PANDEY APRN Ot R09.02 HYPOXEMIA Procedures Code Description Performed By Performed On 59.79 URIN INCONTIN REPAIR NEC 01/28/2012 79.36 OP RED-INT FIX TIB/FIBUL 06/17/2012 44580 HEMOCCULT 09/07/2012 05097 PAP SMEAR 09/13/2012 53643 ROUTINE VENIPUNCTURE 10/11/2012 70356 A1C (IN-HOUSE) 10/11/2012 25462 URINE DRUG SCREEN (IN-HOUSE ) 10/11/2012 32137 MICRO ALBUMIN-IN HOUSE 10/11/2012 45085 CMP 10/11/2012 73865 LIPID PANEL 10/11/2012 2072656 GFR CALC (RESULT ONLY) 10/11/2012 09324 MICROALBUMIN 10/12/2012 65500 URINE DRUG SCREEN (IN-HOUSE ) 10/22/2012 63701 MAMMOGRAM, SCREENING 10/24/2012 Q0091 PAP SMEAR OBTAIN SMEAR 10/24/2012 92981 ROUTINE VENIPUNCTURE 12/02/2012 61999 URINE DRUG SCREEN (IN-HOUSE ) 12/02/2012 10270 URINE PCP GC/MS 12/03/2012 76342 TSH 12/04/2012 47390 ROUTINE VENIPUNCTURE 02/08/2013 73840 A1C (IN-HOUSE) 02/08/2013 60766 URINE DRUG SCREEN (IN-HOUSE ) 02/08/2013 75137 MICRO ALBUMIN-IN HOUSE 02/08/2013 29138 CMP 02/08/2013 5422328 GFR CALC (RESULT ONLY) 02/08/2013 15904 CBC 02/08/2013 05978 MICROALBUMIN 02/08/2013 Vivian Cha 02/11/2013 90551 DEBRIDE NAIL >6 06/03/2013 17875 ROUTINE VENIPUNCTURE 08/10/2013 G0008 FLU ADMINISTRATION ( MEDICARE ONLY) 08/10/2013 13778 URINE DRUG SCREEN (IN-HOUSE ) 08/10/2013 91099 CBC 08/10/2013 80702 CMP 08/10/2013 70259 LIPID PANEL 08/10/2013 2298748 GFR CALC (RESULT ONLY) 08/10/2013 03739 TSH 08/11/2013 68255 A1C (RML) 08/11/2013 20100 UA W/ CULTURE IF INDICATED 08/17/2013 77778 CULTURE URINE 08/18/2013 70775 DEBRIDE NAIL >6 09/02/2013 00895 DEBRIDE NAIL >6 12/09/2013 81031 CMP 2014 30547 MAGNESIUM 2014 06062 A1C (IN-HOUSE) 2014 98946 ROUTINE VENIPUNCTURE 02/27/2014 1545065 GFR CALC (RESULT ONLY) 02/27/2014 15193 BMP 02/27/2014 30770 DEBRIDE NAIL >6 03/10/2014 81865 URINE DRUG SCREEN (IN-HOUSE ) 04/03/2014 21982 ROUTINE VENIPUNCTURE 05/22/2014 JEFERSON AREVALO 05/22/2014 51300 A1C (IN-HOUSE) 05/22/2014 1817312 GFR CALC (RESULT ONLY) 05/22/2014 25425 CMP 05/22/2014 18875 TSH 05/22/2014 S StevensonJeferson 06/20/2014 96527 ROUTINE VENIPUNCTURE 08/28/2014 13873 OXIMETRY 08/28/2014 82371 A1C (IN-HOUSE) 08/28/2014 54192 BMP 08/28/2014 10549 TSH 08/28/2014 22162 OXIMETRY 11/13/2014 74795 ROUTINE VENIPUNCTURE 11/27/2014 69280 XRAY CHEST 2 VIEW 11/27/2014 93338 CMP 11/27/2014 52360 TSH 11/27/2014 54973 CBC 11/27/2014 93392 MYCOPLASMA ANTIBODY 11/27/2014 82731 XRAY KNEE LEFT, 1 OR 2 VIEWS 12/11/2014 46145 XRAY ANKLE R, 2 VIEWS 12/11/2014 91817 ROUTINE VENIPUNCTURE 02/19/2015 20144 ECHO 2D 02/19/2015 50672 AMERITOX 02/19/2015 CARDIOLOG BRADLY KIRBY 02/19/2015 93038 MAGNESIUM 02/19/2015 70902 CBC 02/19/2015 1874014 GFR CALC (RESULT ONLY) 02/19/2015 56995 CMP 02/19/2015 9612367 SPTYPE 02/19/2015 79851 TSH 02/19/2015 53788 ROUTINE VENIPUNCTURE 02/27/2015 21141 CMP 02/27/2015 0360516 GFR CALC (RESULT ONLY) 02/27/2015 Results Test Result Range [facility] - 01/25/18 11:55 GLUCOSE 92 mg/dL 65-99 UREA NITROGEN (BUN) 20 mg/dL 7-25 CREATININE 0.86 mg/dL 0.50-1.05 eGFR NON-AFR. [place] 77 mL/min/1.73m2 > OR=60 eGFR 89 mL/min/1.73m2 [...] culture - 02/21/18 18:11 Bacterial urine culture [id number] NRG COLONY COUNT >100,000/ML NRG Automated blood complete blood count (hemogram) panel - 03/09/18 07:08 Blood leukocytes automated count (number/volume) 12.4 10*3/uL 4.3-11.0 Blood erythrocytes automated count (number/volume) 4.68 10*6/uL 4.35-5.85 Venous blood hemoglobin measurement (mass/volume) 11.6 g/dL 11.5-16.0 Blood hematocrit (volume fraction) 38 % 35-52 Automated erythrocyte mean corpuscular volume 80 [foz_us] 80-99 Automated erythrocyte mean corpuscular hemoglobin (mass per erythrocyte) 25 pg 25-34 Automated erythrocyte mean corpuscular hemoglobin concentration measurement ( mass/volume) 31 g/dL 32-36 Automated erythrocyte distribution width ratio 17.8 % 10.0-14.5 Automated blood platelet count (count/volume) 320 10*3/uL 130-400 Automated blood platelet mean volume measurement 10.9 [foz_us] 7.4-10.4 PT panel in platelet poor plasma by coagulation assay - 03/09/18 07:08 Prothrombin time (PT) in platelet poor plasma by coagulation assay 12.8 s 12.2-14.7 INR in platelet poor plasma or blood by coagulation assay 1.0 0.8-1.4 Activated partial thromboplastin time (aPTT) in platelet poor plasma bycoagulation assay - 03/09/18 07:08 Activated partial thromboplastin time (aPTT) in platelet poor plasma bycoagulation assay 24 s 24-35 Comprehensive metabolic panel - 03/09/18 07:08 Serum or plasma sodium measurement (moles/volume) 141 mmol/L 135-145 Serum or plasma potassium measurement (moles/volume) 4.2 mmol/L 3.6-5.0 Serum or plasma chloride measurement (moles/volume) 108 mmol/L 98-107 Carbon dioxide 23 mmol/L 21-32 Serum or plasma anion gap determination (moles/volume) 10 mmol/L 5-14 Serum or plasma urea nitrogen measurement (mass/volume) 21 mg/dL 7-18 Serum or plasma creatinine measurement (mass/volume) 0.78 mg/dL 0.60-1.30 Serum or plasma urea nitrogen/creatinine mass ratio 27 NRG Serum or plasma creatinine measurement with calculation of estimated glomerular filtration rate > NRG Serum or plasma glucose measurement (mass/volume) 85 mg/dL 70-105 Serum or plasma calcium measurement (mass/volume) 9.0 mg/dL 8.5-10.1 Serum or plasma total bilirubin measurement (mass/volume) 0.2 mg/dL 0.1-1.0 Serum or plasma alkaline phosphatase measurement (enzymatic activity/volume) 104 U/L 40-136 Serum or plasma aspartate aminotransferase measurement (enzymatic activity/ volume) 20 U/L 5-34 Serum or plasma alanine aminotransferase measurement (enzymatic activity/volume ) 13 U/L 0-55 Serum or plasma protein measurement (mass/volume) 7.7 g/dL 6.4-8.2 Serum or plasma albumin measurement (mass/volume) 3.8 g/dL 3.2-4.5 Lipid 1996 panel - 03/09/18 07:08 Serum or plasma triglyceride measurement (mass/volume) 154 mg/dL <150 Serum or plasma cholesterol measurement (mass/volume) 143 mg/dL < 200 Serum or plasma cholesterol in HDL measurement (mass/volume) 48 mg/ dL 40-60 Cholesterol in LDL [mass/volume] in serum or plasma by direct assay 76 mg/dL 1-129 Serum or plasma cholesterol in VLDL measurement (mass/volume) 31 mg/ dL 5-40 Methicillin resistant Staphylococcus aureus (MRSA) screening culture - 07:08 Methicillin resistant Staphylococcus aureus (MRSA) screening culture NEG NRG Encounters ACCT No. Visit Date/Time Discharge Status Pt. Type Provider Facility Loc./Unit Complaint [id number] 02/27/2015 09:51:00 02/27/2015 23:59:59 CLS Outpatient MADL LIQUOR MAKERHAMMADA L [id number] 02/19/2015 08:48:00 02/19/2015 23:59:59 CLS Outpatient MADL LIQUOR MAKER ETELVINA L [id number] 02/09/2015 08:56:00 02/09/2015 23:59:59 CLS Outpatient LADONNA SALGUERO DO [id number] 12/11/2014 14:31:00 12/11/2014 23:59:59 CLS Outpatient MADL LIQUOR MAKERANDREZ BowserNYA L [id number] 12/11/2014 14:31:00 12/11/2014 23:59:59 CLS Outpatient LADONNA SALGUERO DO [id number] 11/27/2014 13:24:00 11/27/2014 23:59:59 CLS Outpatient LADONNA SALGUERO DO [id number] 11/27/2014 13:24:00 11/27/2014 23:59:59 CLS Outpatient MADL LIQUOR MAKERANDREZETELVINA L [id number] 11/13/2014 09:52:00 11/13/2014 23:59:59 CLS Outpatient MADL LIQUOR MAKER, ETELVINA L [id number] 10/23/2014 13:14:00 10/23/2014 23:59:59 CLS Outpatient MADL LIQUOR MAKER, ETELVINA L [id number] 09/25/2014 13:26:00 09/25/2014 23:59:59 CLS Outpatient MADL LIQUOR MAKERETELVINA L [id number] 08/28/2014 09:22:00 08/28/2014 23:59:59 CLS Outpatient MADL LIQUOR MAKERETELVINA L [id number] 08/28/2014 09:22:00 08/28/2014 23:59:59 CLS Outpatient MADL LIQUOR MAKERETELVINA L [id number] 07/24/2014 09:55:00 07/24/2014 23:59:59 CLS Outpatient SALGUERO DO LADONNA Wright [id number] 06/19/2014 09:11:00 06/19/2014 23:59:59 CLS Outpatient SALGUERO DO, LADONNA Wright [id number] 05/22/2014 13:40:00 05/22/2014 23:59:59 CLS Outpatient MADL LIQUOR MAKERETELVINA L [id number] 05/22/2014 13:40:00 05/22/2014 23:59:59 CLS Outpatient MADL LIQUOR MAKERETELVINA L [id number] 04/03/2014 14:31:00 04/03/2014 23:59:59 CLS Outpatient MADL LIQUOR MAKERETELVINA L [id number] 04/03/2014 14:31:00 04/03/2014 23:59:59 CLS Outpatient SALGUERO DOTERERadha Wright [id number] 03/10/2014 08:26:00 03/10/2014 23:59:59 CLS Outpatient SALGUERO DO LADONNA Wright [id number] 03/10/2014 08:26:00 03/10/2014 23:59:59 CLS Outpatient SALGUERO DO, LADONNA Wright [id number] 02/27/2014 14:59:00 02/27/2014 23:59:59 CLS Outpatient SALGUERO DO, LADONNA Wright [id number] 2014 09:28:00 2014 23:59:59 CLS Outpatient BYRON BOSS MD [id number] 2014 09:28:00 2014 23:59:59 CLS Outpatient BYRON BOSS MD [id number] 12/09/2013 07:39:00 12/09/2013 23:59:59 CLS Outpatient SALGUERO DOLADONNA [id number] 09/22/2013 09:11:00 09/22/2013 23:59:59 CLS Outpatient BYRON BOSS MD [id number] 09/02/2013 07:40:00 09/02/2013 23:59:59 CLS Outpatient LADONNA SALGUERO DO Adriana [id number] 08/25/2013 15:49:00 08/25/2013 23:59:59 CLS Outpatient BYRON BOSS MD [id number] 08/17/2013 13:19:00 08/17/2013 23:59:59 CLS Outpatient BYRON BOSS MD [id number] 02/08/2013 10:18:00 02/08/2013 23:59:59 CLS Outpatient BYRON BOSS MD [id number] 12/07/2012 08:34:00 12/07/2012 23:59:59 CLS Outpatient ROMELIA FISCHER MD [id number] 12/02/2012 14:59:00 12/02/2012 23:59:59 CLS Outpatient LAURIE MORA APRN [id number] 11/01/2012 08:50:00 11/01/2012 23:59:59 CLS Outpatient [id number] 10/11/2012 08:39:00 10/11/2012 23:59:59 CLS Outpatient LAURIE MORA APRN [id number] 09/07/2012 09:19:00 09/07/2012 23:59:59 CLS Outpatient LAURIE MORA APRN [id number] 08/10/2013 14:39:00 Document Registration [id number] 06/03/2013 08:05:00 Document Registration [id number] 06/03/2013 08:05:00 Document Registration [id number] 02/08/2013 10:18:00 Document Registration [id number] 04/30/2018 10:20:00 04/30/2018 23:59:59 CLS Outpatient KING FISHMAN MD [facility] [id number] 2018 11:00:00 Document Registration [id number] 05/03/2018 08:12:00 05/03/2018 23:59:59 CLS Outpatient JESSY PANDEY APRN [facility] PULM COPD,SOB [id number] 04/24/2018 20:37:00 04/25/2018 06:48:00 DIS Outpatient JESSY PANDEY APRN [facility] SLEEP COPD,SOB [id number] 03/31/2018 11:36:00 03/31/2018 23:59:59 CLS Outpatient KOFI OLVERA FACC, BRADLY FACP CCDS [facility] RAD R07.89 CHEST PAIN [id number] 03/09/2018 06:49:00 03/09/2018 12:30:00 DIS Outpatient KOFI OLVERA FACC, BRADLY NIX CCDS [facility] CATH CAD [id number] 03/03/2018 09:01:00 03/03/2018 11:50:00 DIS Outpatient LEONEL ORTIZ MD [facility] ENDO DYSPHAGIA [id number] 02/26/2018 05:52:00 02/26/2018 12:49:00 DIS Outpatient LEONEL ORTIZ MD [facility] PREOP EGD [id number] 02/21/2018 16:36:00 02/21/2018 19:07:00 DIS Emergency FELICIA ENCINAS DO K [facility] ER WEAKNESS [id number] 02/15/2018 10:22:00 02/15/2018 15:46:00 DIS Emergency MARLA EVERETT MD [facility] ER CP [id number] 01/07/2018 16:24:00 01/07/2018 19:40:00 DIS Emergency HARDEEP DORANTES [facility] ER FALL WITH BIG BUMP ON L LEG [id number] 12/29/2017 12:20:00 12/29/2017 23:59:59 CLS Outpatient KOFI OLVERA FACC, BRADLY FACP CCDS [facility] RAD I25.10 CAD [id number] 12/21/2017 13:54:00 12/21/2017 23:59:59 CLS Outpatient KYLAH CREWS [facility] CARD I25.5 CARDIOMYOPATHY [id number] 12/02/2017 08:24:00 12/02/2017 23:59:59 CLS Outpatient KOFI OLVERA FACC, BRADLY FACP CCDS [facility] RT R06.02 SOB [id number] 12/01/2017 08:04:00 12/01/2017 23:59:59 CLS Outpatient BRADLY KIRBY MD, FACC, FACP CCDS [facility] CARD R06.02 SOB [id number] 11/26/2017 11:24:00 11/26/2017 23:59:59 CLS Outpatient BRADLY KIRBY MD, FACC, FACP CCDS [facility] CARD R06.02 SOB [id number] 11/09/2017 12:27:00 11/09/2017 23:59:59 CLS Outpatient BILL CLEMENTE DO [facility] RAD ABNORMAL MAMMO [id number] 10/27/2017 12:24:00 10/27/2017 23:59:59 CLS Outpatient BILL CLEMENTE DO [facility] RAD SCREENING [id number] 12/31/2016 10:19:00 12/31/2016 23:59:59 CLS Outpatient ADELFO WASHINGTON DRILL SETUP OPERATOR [facility] RAD AAA [id number] 04/07/2016 08:25:00 04/07/2016 11:40:00 DIS Outpatient JEFERSON SALDANA MD [facility] SDC DYSKINESIA [id number] 04/02/2016 05:42:00 04/02/2016 11:05:00 DIS Outpatient JEFERSON SALDANA MD [facility] PREOP DYSKINSIA [id number] 03/11/2016 11:17:00 03/11/2016 23:59:59 CLS Outpatient BRADLY KIRBY MD, FACC, FACP CCDS [facility] LAB CAD, HYPERLIPIDEMIA [id number] 03/09/2016 16:47:00 03/09/2016 19:30:00 DIS Emergency MARLA EVERETT MD [facility] ER FEVER/DIARRHEA [id number] 03/05/2016 19:11:00 03/05/2016 21:37:00 DIS Emergency INES REYNOSO MD [facility] ER EYE SWELLING/ANKLE PAIN FROM FALL [id number] 12/18/2015 08:53:00 12/18/2015 23:59:59 CLS Outpatient PERLAKYLAH ABAD Maxine DRILL SETUP OPERATOR [facility] RAD ABDOMEN AORTIC ECTASIA [id number] 12/09/2015 10:18:00 12/09/2015 12:47:00 DIS Emergency BETTINA ROMAN MD [facility] ER R EYE SWELLING/PAIN [id number] 12/01/2015 13:15:00 12/01/2015 15:12:00 DIS Emergency MARLA EVERETT MD [facility] ER R EYE SWELLING [id number] 10/07/2015 16:35:00 10/07/2015 18:15:00 DIS Emergency BETTINA ROMAN MD [facility] ER POST OP/BLEEDING [id number] 10/04/2015 10:45:00 10/04/2015 23:59:59 CLS Outpatient BILL CLEMENTE DO [facility] LAB RESISTANT GUINFECTIONS [id number] 09/13/2015 10:52:00 09/13/2015 23:59:59 CLS Outpatient KYLAH CREWS Maxine MEEKSP [facility] LAB HLP,CAD [id number] 07/30/2015 15:05:00 07/30/2015 16:25:00 DIS Emergency HARDEEP DORANTES [facility] ER BACK,HIP PAIN [id number] 07/16/2015 17:17:00 07/16/2015 18:20:00 DIS Emergency THOMPSON QURESHI APRN Via [facility] ER L ARM, L KNEE INJ [id number] 07/09/2015 13:52:00 07/09/2015 23:59:59 CLS Outpatient BILL CLEMENTE DO Via [facility] RAD TRAUMA L 3RD TOE W/ DIABETES [id number] 06/11/2015 09:00:00 06/11/2015 23:59:59 CLS Outpatient KOFI OLVERA FACC, BRADLY NIX CCDS Via [facility] RAD ABDOMINAL AORTIAL ECTASIA [id number] 04/10/2015 10:25:00 04/10/2015 23:59:59 CLS Outpatient BILL CLEMENTE DO Via [facility] RAD R ANKLE PAIN, HX OF FX SURGERY [id number] 03/26/2015 11:17:00 03/26/2015 23:59:59 CLS Outpatient BILL CLEMENTE DO Via [facility] RAD BACK PAIN, [id number] 03/16/2015 10:23:00 03/16/2015 23:59:59 CLS Outpatient BILL CLEMENTE DO Via [facility] LAB DM II,CAD,HLP [id number] 03/16/2015 10:20:00 03/16/2015 23:59:59 CLS Outpatient ELEONORA KYLAH L DRILL SETUP OPERATOR Via [facility] LAB ELECTROLYTE DEPLETION ,CAD,HTN,HLP [id number] 03/01/2015 07:26:00 03/01/2015 23:59:59 CLS Outpatient ETELVINA LEONARD DRILL SETUP OPERATOR Via [facility] CARD NEAR SYNCOPE EPISODE CAD [id number] 02/19/2015 16:09:00 02/20/2015 13:40:00 DIS Inpatient QUE LEON MD Via [facility] 4TH ORTHOSTATIC HYPOTENSION; ACUTE RENAL FAILURE [id number] 12/30/2014 11:12:00 12/30/2014 14:54:00 DIS Emergency INES REYNOSO MD Via [facility] ER SOA,DIZZINESS [id number] 11/03/2014 08:58:00 11/03/2014 10:36:00 DIS Emergency DANIELITO SORIANO MD Via [facility] ER COUGH/CONGESTION [id number] 10/30/2014 14:50:00 10/30/2014 16:25:00 DIS Emergency HARDEEP DORANTES Via [facility] ER NAUSEATED/BODYACHES/ WEAKNESS EARACHE/RINGING [id number] 10/01/2014 13:53:00 10/01/2014 14:57:00 DIS Emergency FELICIA ENCINAS DO Via [facility] ER RECTAL BLEEDING [id number] 09/11/2014 09:46:00 09/11/2014 23:59:59 CLS Outpatient KOFI OLVERA FACCBRADLY FACP CCDS Via [facility] CARD ISCHEMIC CARDIO MYOPATHY,CAD [id number] 09/01/2014 10:58:00 09/01/2014 11:40:00 DIS Emergency THOMPSON QURESHI APRN Via [facility] ER SWOLLEN EYE [id number] 08/31/2014 16:55:00 08/31/2014 18:16:00 DIS Emergency THOMPSON QURESHI APRN Via [facility] ER NECK SWELLING [id number] 07/10/2014 09:07:00 07/10/2014 11:55:00 DIS Outpatient JEFERSON SALDANA MD Via [facility] SDC DYSPHAGIA [id number] 07/05/2014 07:29:00 07/05/2014 23:59:59 CLS Outpatient JEFERSON SALDANA MD Via [facility] PREOP DYSPHAGIA [id number] 06/05/2014 08:24:00 06/05/2014 11:43:00 DIS [facility] [id number] 05/31/2014 07:28:00 05/31/2014 23:59:59 CLS Outpatient JEFERSON SALDANA MD Via [facility] PREOP SCREENING;FAMILY HISTORY [id number] 05/29/2014 12:18:00 05/29/2014 23:59:59 CLS Outpatient KYLAH CREWS Via [facility] LAB POST HEART CATH [id number] 05/23/2014 06:24:00 05/23/2014 20:30:00 DIS Outpatient KOFI OLVERA FACC, BRADLY NIX CCDS Via [facility] CATH SHORTNESS OF BREATH CAD ABNORMAL STRESS TEST [id number] 05/08/2014 12:02:00 05/08/2014 23:59:59 CLS Outpatient KYLAH CREWS Via [facility] CARD CAD [id number] 02/13/2014 12:30:00 02/13/2014 14:00:00 DIS Emergency THOMPSON QURESHI APRN Via [facility] ER FALL/BACK PAIN [id number] 02/09/2014 19:30:00 02/11/2014 10:45:00 DIS Inpatient LADONNA SALGUERO DO Via [facility] ICU ACUTE COPD EXACERBATION [id number] 2014 11:48:00 2014 23:59:59 CLS Outpatient BYRON BOSS MD Via [facility] LAB HTN,HYPERLIPADEIA [id number] 12/12/2013 06:44:00 12/12/2013 11:43:00 DIS Outpatient [facility] RIGHT ANKLE [id number] 12/05/2013 14:33:00 12/05/2013 23:59:59 CLS Outpatient PATRICIA MCDONALD MD Via [facility] PREOP PAINFUL HARDWARE RIGHT ANKLE [id number] 11/04/2013 12:22:00 11/04/2013 12:46:00 DIS Emergency MARLA EVERETT MD Via [facility] ER SUTURE REMOVAL [id number] 10/31/2013 10:42:00 10/31/2013 23:59:59 CLS Outpatient KYLAH CREWS Via [facility] CARD CAD,HTN [id number] 10/25/2013 08:26:00 10/25/2013 23:59:59 CLS Outpatient KYLAH CREWS Via [facility] LAB CAD,HEART VALVE DISEASE,HTN,HYPERLIPIDEMIA,COPD [id number] 10/25/2013 18:12:00 10/25/2013 20:10:00 DIS Emergency HARDEEP DORANTES Via [facility] ER FOOT INJ [id number] 10/21/2013 06:02:00 10/22/2013 11:11:00 DIS Outpatient EDUARDO VILLEGAS MD Via [facility] INTRINSIC SPHINCTER DEFICIENCY; INCONTINENCE [id number] 10/17/2013 09:25:00 10/17/2013 23:59:59 CLS Outpatient EDUARDO VILLEGAS MD Via [facility] PREOP INTRINSIC SPHINCTER DEFICIENCY; INCONTINENCE [id number] 08/03/2013 06:00:00 08/03/2013 09:56:00 DIS Outpatient EDUARDO VILLEGAS MD Via [facility] INCONTINENCE [id number] 07/27/2013 12:35:00 07/27/2013 23:59:59 CLS Outpatient EDUARDO VILLEGAS MD Via [facility] PREOP INCONTINENCE [id number] 06/13/2013 14:57:00 06/13/2013 23:59:59 CLS Outpatient [id number] 04/18/2013 22:12:00 04/18/2013 23:34:00 DIS Emergency FELICIA ENCINAS DO Via [facility] ER REACTION TO MEDICATION [id number] 04/17/2013 14:11:00 04/17/2013 15:42:00 DIS Emergency MARCO A VAN MD Via [facility] ER VOMITING BODY ACHES [id number] 03/26/2015 11:17:00 Document Registration [id number] 01/19/2013 18:23:00 Document Registration [id number] 01/01/2013 15:27:00 Document Registration [id number] 12/26/2012 14:21:00 Document Registration [id number] 11/11/2012 16:20:00 Document Registration [id number] 10/24/2012 23:40:00 Document Registration [id number] 09/19/2012 19:49:00 Document Registration [id number] 09/13/2012 10:47:00 Document Registration [id number] 09/08/2012 15:08:00 Document Registration [id number] 09/04/2012 17:10:00 Document Registration [id number] 06/12/2012 16:25:00 Document Registration [id number] 06/03/2012 10:41:00 Document Registration [id number] 04/16/2012 09:50:00 Document Registration [id number] 03/17/2012 10:58:00 Document Registration [id number] 03/08/2012 10:14:00 Document Registration [id number] 02/01/2012 18:50:00 Document Registration [id number] 01/28/2012 06:00:00 Document Registration [id number] 01/21/2012 09:31:00 Document Registration [id number] 11/11/2011 07:21:00 Document Registration [id number] 10/30/2011 08:09:00 Document Registration [id number] 10/27/2011 07:16:00 Document Registration [id number] 10/24/2011 12:36:00 Document Registration [id number] 10/19/2011 11:22:00 Document Registration [id number] 08/07/2011 10:17:00 Document Registration [id number] 07/14/2011 13:47:00 Document Registration [id number] 07/06/2011 18:30:00 Document Registration [id number] 03/19/2011 05:41:00 Document Registration [id number] 03/13/2011 12:47:00 Document Registration [id number] 02/12/2011 10:12:00 Document Registration [id number] 02/06/2011 08:14:00 Document Registration [id number] 01/22/2011 05:55:00 Document Registration [id number] 01/15/2011 10:27:00 Document Registration [id number] 11/08/2010 10:08:00 Document Registration [id number] 09/05/2010 05:48:00 Document Registration [id number] 09/04/2010 09:00:00 Document Registration [id number] 08/26/2010 07:15:00 Document Registration [id number] 08/07/2010 14:40:00 Document Registration [id number] 08/02/2010 08:36:00 Document Registration [id number] 05/26/2010 12:24:00 Document Registration [id number] 04/14/2010 17:58:00 Document Registration [id number] 03/08/2010 10:03:00 Document Registration [id number] 03/07/2010 09:13:00 Document Registration [id number] 02/21/2010 08:56:00 Document Registration [id number] 08/02/2009 18:35:00 Document Registration [id number] 07/30/2015 23:46:44 ACT Document Registration
--- NOTE | 2018-05-14 15:46 | Diagnostic Imaging Report ---
INDICATION: Wheezing. TIME OF EXAMINATION: 3:47 PM. COMPARISON: Prior chest from 02/21/2018. FINDINGS: The lungs are hyperinflated, consistent with COPD. The pulmonary vascularity is unremarkable. No infiltrate or effusion is seen. There is no pneumothorax. IMPRESSION: The findings are suggestive of COPD. No acute feature is detected. Dictated by: Dictated on workstation # [id number]
--- NOTE | 2018-05-14 15:48 | Diagnostic Imaging Report ---
INDICATION: Fall, injury to the right ankle. TIME OF EXAMINATION: 03:49 p.m. COMPARISON: Comparison is made with prior ankle radiographs from 03/05/2016. FINDINGS: Lateral plate and numerous screws transfix the distal fibula. Hardware appears to be intact without fracture or loosening. Ankle mortise is maintained. Talar dome is smooth. Chronic sclerotic changes of the distal tibia are noted and appear stable. No fracture is seen. Well-corticated osseous density anterior to the ankle joint is stable. IMPRESSION: Stable chronic and postsurgical changes. No acute bony abnormality is detected. Dictated by: Dictated on workstation # [id number]
[2018-05-14] MEDS ORDERED: KETOROLAC 30 MG/ML VIAL IVP ONE (16:15)
[2018-05-14 16:29] VITALS: BP 106/72
== END 2018-05-14 16:20 | disposition home or self-care (01) ==
LOC: EDUNIT# 15:03 → ER 15:04
DX: S96.911A Strain of unspecified muscle and tendon at ankle and foot level, right foot, initial encounter (principal); J43.9 Emphysema, unspecified; I25.10 Atherosclerotic heart disease of native coronary artery without angina pectoris; E78.00 Pure hypercholesterolemia, unspecified; I10 Essential (primary) hypertension; G43.909 Migraine, unspecified, not intractable, without status migrainosus; K21.9 Gastro-esophageal reflux disease without esophagitis; E11.9 Type 2 diabetes mellitus without complications; F41.9 Anxiety disorder, unspecified; F32.9 Major depressive disorder, single episode, unspecified; Z87.81 Personal history of (healed) traumatic fracture; Z90.710 Acquired absence of both cervix and uterus; Z95.5 Presence of coronary angioplasty implant and graft; Z79.82 Long term (current) use of aspirin; Z79.84 Long term (current) use of oral hypoglycemic drugs; Z88.0 Allergy status to penicillin; Z88.8 Allergy status to other drugs, medicaments and biological substances; Z88.6 Allergy status to analgesic agent; Z88.5 Allergy status to narcotic agent; W18.30XA Fall on same level, unspecified, initial encounter
CPT/HCPCS: 71046; 73610; 94640; 96374

== ENCOUNTER 2018-07-30 11:45 | Day surgery (SDC) | payer MEDICAID ==
[~2018-07-30] VITALS: Ht 165.1 cm; Wt 88.9 kg
[~2018-07-30 11:45] MED LIST changes: -AMLO5TAB2 PO; +AMLO5TAB7 PO; +CLON0.5T13; -CLON0.5T3; +HYDR-4227 PO; -HYDR-756 PO; +METF-397 PO; -METF500T5 PO
[2018-07-30] MEDS ORDERED: NS IV 500 ML 500 ML ONE ×2 (12:01→13:17)
[2018-07-30] MEDS ORDERED: MIDAZOLAM 2 MG/2 ML (VERSED) VIAL IVP ONE (12:15)
[2018-07-30] MEDS ORDERED: fentaNYL INJECTION 100 MCG/2 ML AMP IVP ONE (12:15)
[2018-07-30] MEDS ORDERED: LIDOCAINE JELLY 2% (XYLOCAINE) 5 ML TUBE MM PRN (12:15)
[2018-07-30] MEDS ORDERED: NS IV 500 ML 500 ML IV PRN (12:15)
--- NOTE | 2018-07-30 12:19 | Conscious Sedation/ASA ---
Conscious Sedation Pre-Proced Time Reviewed: 12:00 ASA Class: 2 Airway Mallampati Classification: ([place] appropriate class) I. II. III, IV Lungs Heart ASA score ASA 1: a normal healthy patient ASA 2: a patient with a mild systemic disease (mid diabetes, controlled hypertension, obesity ASA 3: a patient with a severe systemic disease that limits activity (angina , COPD, prior Myocardial infarction) ASA 4: a patient with an incapacitating disease that is a constant threat to life (CHF, renal failure) ASA 5: a moribund patient not expected to survive 24 hrs. (ruptured aneurysm) ASA 6: a declared brain patient whose organs are being harvested. For emergent operations, add the letter E after the classification Grade 2 Sedation Plan: Analgesia, Amnesia, Plan communicated to team members, Discussed options with patient/fam, Discussed risks with patient/fam Note The patient is an appropriate candidate to undergo the planned procedure, sedation, and anesthesia. The patient immediately re-assessed prior to indication. LEONEL ORTIZ MD Jul 30, 2018 12:19 pm
--- NOTE | 2018-07-30 12:21 | Progress Note-Pre Operative ---
Pre-Operative Progress Note H&P Reviewed The H&P was reviewed, patient examined and no changes noted. Date Seen by Provider: Jul 30, 2018 Time Seen by Provider: 12:00 Date H&P Reviewed: Jul 30, 2018 Time H&P Reviewed: 12:00 Pre-Operative Diagnosis: family hx, rectal bleed LEONEL ORTIZ MD Jul 30, 2018 12:21 pm
[2018-07-30] MEDS ORDERED: HYDROcodone/APAP 5 MG/325 MG (LORTAB) TAB PO PRN (12:30)
[2018-07-30] MEDS ORDERED: ONDANSETRON 4 MG/2 ML (SDV) Z0FRAN IV PRN (12:30)
[2018-07-30] MEDS ORDERED: ACETAMINOPHEN 325 MG TABLET PO PRN (12:30)
[2018-07-30] MEDS ORDERED: morphine INJ 10 MG/ML 1ML (SYR OR VIAL) IV PRN (12:30)
[2018-07-30 12:31] VITALS: BP 133/78
--- NOTE | 2018-07-30 13:41 | Progress Note-Post Operative ---
Post-Operative Progess Note Surgeon (s)/Coating Mixer Tender (s) Surgeon LEONEL ORTIZ MD Coating Mixer Tender: none Pre-Operative Diagnosis family hx, rectal bleed Post-Operative Diagnosis mild stage 1 ext and int hemorrhoids, mild sigmoid diverticulsosis. Procedure & Operative Findings Date of Procedure 07/30/18 Procedure Performed/Findings Colonoscopy. Anesthesia Type CS Estimated Blood Loss Estimated blood loss (mL): minimal Specimens/Packing Specimens Removed none LEONEL ORTIZ MD Jul 30, 2018 1:41 pm
--- NOTE | 2018-07-30 13:43 | Discharge Inst-Surgical ---
D/C Lap Instructions-ANGEL Follow Up 5 years. Activity as tolerated High Fiber Diet 25g or more per day Avoid Alcohol, Caffeine, Spicy [place] and Acid foods. Drink 64 fluid oz or more of fluids per day. Symptoms to Report: Fever over 101 degree F, Nausea/Vomiting If any problems/questions: Contact your physician or go to Emergency Room LEONEL ORTIZ MD Jul 30, 2018 1:43 pm
[2018-07-30 14:20] VITALS: BP 147/69
[2018-07-30 14:50] VITALS: BP 137/74
[2018-07-30 14:55] VITALS: BP 137/74
--- NOTE | 2018-07-30 22:55 | OPERATIVE REPORT ---
DATE OF SERVICE: 07/30/2018 ATTENDING PRIMARY CARE PHYSICIAN: Dr. Jj. PREOPERATIVE DIAGNOSIS: Family history of colon cancer, rectal bleeding. POSTOPERATIVE DIAGNOSIS: Chronic stage I external and internal hemorrhoids, mild sigmoid diverticulosis. PROCEDURE: Colonoscopy. SURGEON: Leonel Ortiz MD ANESTHESIA: Conscious sedation. ESTIMATED BLOOD LOSS: Minimal. FINDINGS: Chronic stage I external and internal hemorrhoids, not actively edematous nor inflamed and no bleeding. There was a mild sigmoid diverticulosis. The remainder of the colon was normal. There were no polyps or any active bleeding sources identified. DISPOSITION: The patient tolerated the procedure well. The patient is a 53-year-old male referred over to us for episodic episodes of blood per rectum. She reports that this has been going on for the past three months; however, has had it before in the past. She also does report a family history of colon cancer with her mother having the disease at around age 74. Her last colonoscopy was in 2003 where she was found to have diverticulosis. We did an EGD on her in the past and she did have a hiatal hernia as well as a stricture identified, which was dilated. The patient was brought to the endoscopy suite, laid in the left lateral decubitus position. After adequate IV pain and sedating medications and conscious sedation anesthesia, a digital rectal examination was performed. Mild chronic stage I external and internal hemorrhoids were identified, which were not actively edematous nor inflamed and no bleeding. Normal sphincter tone was felt and there were no palpable masses. The endoscope was then intubated to the anus and rectum gently insufflated. The endoscope was then advanced through the valves of Weaver of the rectum with no polyps or any neoplasm identified. Through the sigmoid colon, mild sigmoid diverticulosis identified. There were no mucosal inflammatory changes to indicate any active diverticulitis as well as no bleeding. The endoscope was then advanced to the remainder of the descending, transverse and ascending colon to the cecum. These segments were normal. There were no polyps or any neoplasms identified throughout the colon or rectum, as well as no active bleeding sources. The endoscope was then slowly withdrawn while taking a second look and suctioning of residual air with no additional findings. The patient tolerated the procedure well. We will recommend continued medical management with a high fiber diet with at least 25 grams of fiber per day as well as at least 64 fluid ounces of water daily to promote soft stools on a daily basis. The most likely cause of her bleeding was due to a hemorrhoidal irritation. Job ID: [id number] DocumentID: [id number] Dictated Date: 07/30/2018 13:47:54 Brake Lining Driller Date: 07/30/2018 22:54:35 Dictated By: LEONEL ORTIZ MD MTDD
== END 2018-07-30 14:55 | disposition home or self-care (01) ==
LOC: ENDO 11:45
PROVIDERS: ATTEND Surgery
DX: K62.5 Hemorrhage of anus and rectum (principal); K64.0 First degree hemorrhoids; K57.30 Diverticulosis of large intestine without perforation or abscess without bleeding; Z80.0 Family history of malignant neoplasm of digestive organs; I10 Essential (primary) hypertension; E11.40 Type 2 diabetes mellitus with diabetic neuropathy, unspecified; J44.9 Chronic obstructive pulmonary disease, unspecified; J45.909 Unspecified asthma, uncomplicated; I25.10 Atherosclerotic heart disease of native coronary artery without angina pectoris; K21.9 Gastro-esophageal reflux disease without esophagitis; Z87.891 Personal history of nicotine dependence; Z79.84 Long term (current) use of oral hypoglycemic drugs

== ENCOUNTER 2018-11-26 14:29 | Inpatient (IN) | payer MEDICAID ==
[~2018-11-26] VITALS: Ht 170.2 cm; Wt 82.7 kg
[2018-11-26 14:51] LABS: BASOPHILS % (AUTO) 0 % (0-10); EOSINOPHILS # (AUTO) 0.3 10^3/uL (0.0-0.3); EOSINOPHILS % (AUTO) 2 % (0-10); HEMATOCRIT 37 % (35-52); HEMOGLOBIN 10.4 G/DL (11.5-16.0); LYMPHOCYTES # (AUTO) 0.6 X 10^3 (1.0-4.0); LYMPHOCYTES % (AUTO) 3 % (12-44); MEAN CORPUSCULAR HEMOGLOBIN 21 PG (25-34); MEAN CORPUSCULAR HGB CONC 28 G/DL (32-36); MEAN CORPUSCULAR VOLUME 76 FL (80-99); MEAN PLATELET VOLUME 11.4 FL (7.4-10.4); MONOCYTES # (AUTO) 0.8 X 10^3 (0.0-1.0); MONOCYTES % (AUTO) 5 % (0-12); NEUTROPHILS # (AUTO) 16.3 X 10^3 (1.8-7.8); NEUTROPHILS % (AUTO) 90 % (42-75); PLATELET COUNT 340 10^3/uL (130-400); RED BLOOD COUNT 4.86 10^6/uL (4.35-5.85); RED CELL DISTRIBUTION WIDTH 18.2 % (10.0-14.5)
[2018-11-26] MEDS ORDERED: NS IV 1000 ML 1,000 ML IV SCH (15:00)
--- NOTE | 2018-11-26 15:01 | ED General ---
General Chief Complaint: Cough/Cold/Flu Symptoms Stated Complaint: FEVER Nursing Triage Note: THE PT ARRIVAL BY EMS. NO DISTRESS IS SEEN ON ARRIVAL. LOC IS NORMAL FOR THE PT. Nursing Sepsis Screen: No Definite Risk Source of Information: Patient Exam Limitations: No Limitations History of Present Illness Date Seen by Provider: Nov 26, 2018 Time Seen by Provider: 14:57 Initial Comments The patient is a 53-year-old white female. She reports that about 04 00 this morning she began having vomiting and diarrhea. She states she believes she has vomited about 8 times. This was described as being yellow-green in color and clear. There have been multiple incontinent stools as well. She smells heavily of cigarette smoke. She reports she is not smoking much but lives with her brother and sister who do. 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 There is a small dressing on it but she states this to be nearly healed Timing/Duration: 12 Hours Associated Systoms: Cough, Loss of Appetite, Malaise, Nausea/Vomiting Allergies and Home Medications Allergies Coded Allergies: Penicillins (Verified Allergy, Mild, Hives, 07/23/18) Fjiiinr-Tdd-Aax Reductase Inhibitor (Verified Allergy, Unknown, 07/23/18) amlodipine besylate (Verified Allergy, Unknown, 07/23/18) benazepril HCl (Verified Allergy, Unknown, 07/23/18) aspirin (Verified Adverse Reaction, Mild, Nausea, 07/23/18) codeine (Verified Adverse Reaction, Mild, Nausea, 07/23/18) tramadol (Verified Adverse Reaction, Mild, N/V, 07/23/18) Home Medications Albuterol Sulfate 1 Puff Puff, 2 PUFF IH Q4H PRN for WHEEZING, (Reported) 1 PUFF = 90 MCG Albuterol/Ipratropium 4 Gm Aero, 2 PUFF IH QID, (Reported) Atorvastatin Calcium 40 Mg Tablet, 40 MG PO HS, (Reported) Budesonide/Formoterol Fumarate 10.2 Gm Hfa.aer.ad, 2 PUFF IH BID, (Reported) Gabapentin 300 Mg Capsule, 600 MG PO TID, (Reported) take 2 (300mg) tabs Hydroxyzine HCl 10 Mg Tablet, 20 MG PO QID PRN for ANXIETY, (Reported) TAKES 2 (10 MG) TABLETS QID PRN Levothyroxine Sodium 50 Mcg Tablet, 50 MCG PO DAILY, (Reported) Loratadine 10 Mg Tablet, 10 MG PO DAILY, (Reported) Meloxicam 15 Mg Tablet, 15 MG PO DAILY, (Reported) Metformin HCl 500 Mg Tablet, 500 MG PO BID, (Reported) Metoprolol Succinate 25 Mg Tab.er.24h, 25 MG PO DAILY, (Reported) Nitroglycerin 0.4 Mg Tab.subl, 0.4 MG SL UD PRN for CHEST PAIN, (Reported) Oxybutynin Chloride 15 Mg Tab.er.24, 15 MG PO DAILY, (Reported) Pantoprazole Sodium 40 Mg Tablet.dr, 40 MG PO DAILY, (Reported) [Oxygen] , 2 L NA HS, (Reported) Review of Systems Review of Systems Constitutional: see HPI EENTM: no symptoms reported Respiratory: cough, dyspnea on exertion, short of breath Cardiovascular: no symptoms reported Gastrointestinal: see HPI, diarrhea, vomiting Genitourinary: no symptoms reported Musculoskeletal: no symptoms reported Past Kfvjpuy-Fnkgfr-Cqxpwp Hx Patient Social History Type Used: Cigarettes Former Smoker, Quit: Jun 27, 2018 Recent Foreign Travel: No Contact w/Someone Who Travel: No Recent Infectious Disease Expo: No Recent Hopitalizations: No Physical Abuse: No Sexual Abuse: No Mistreated: No Fear: No Immunizations Up To Date Tetanus Booster (TDap): Less than 5yrs Date of Pneumonia Vaccine: Jul 10, 2011 Date of Influenza Vaccine: Oct 30, 2017 Seasonal Allergies Seasonal Allergies: Yes Past Medical History Surgeries: Yes Bladder Surgery, Cardiac, Coronary Stent, Hysterectomy, Orthopedic, Vascular Surgery Respiratory: Yes ( O2 @ NOC) Asthma, Chronic Bronchitis, COPD, Emphysema Currently Using CPAP: No Currently Using BIPAP: No Cardiac: Yes (CARDIAC CATHS-STENT X 1; LBBB) Aneurysm, Coronary Artery Disease, High Cholesterol, Hypertension Neurological: Yes Headaches /Migraines 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 Disorders: No 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 Disorders: Denies 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, 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 Sexually Transmitted Disease: No HIV/AIDS: No Genitourinary: Yes (BLADDER SUSPENSION) UTI-Chronic Gastrointestinal: Yes (ESOPHAGEAL STRICTURES/DILATIONS) Gastroesophageal Reflux Musculoskeletal: Yes Arthritis, Back Injury, Chronic Back Pain, Fractures Endocrine: Yes Diabetes, Non-Insulin dep Loss of Vision: Bilateral Hearing Impairment: Denies Cancer: No Psychosocial: Yes Anxiety, Depression Integumentary: No Blood Disorders: No Adverse Reaction/Blood Tranf: No (N/A) Family Medical History Arthritis Diabetes mellitus Hypertension No Pertinent Family Hx Patient reports she does not know Physical Exam Vital Signs Vital Signs - First Documented 11/26/18 14:47 Temp 97.5 Pulse 96 Resp 18 B/P (MAP) 126/87 (100) Capillary Refill : Less Than 3 Seconds Height, Weight, BMI Height: 5'7.00" Weight: 189lbs. 0.8oz. 85.218127pq; 32.6 BMI Method:Estimated General Appearance: Other HEENT: Normal ENT Inspection Neck: Normal Inspection Respiratory: Decreased Breath Sounds (distant breath sounds with scattered rhonchi) Cardiovascular: Regular Rate, Rhythm, No Edema, No Gallop, No JVD, No Murmur, Normal Peripheral Pulses Gastrointestinal: Non Tender, Abnormal Bowel Sounds (hypoactive) Extremity: Other (right BKA amputation) Neurologic/Psychiatric: Alert, Oriented x3, Normal Mood/Affect (grumpy) Progress/Results/Core Measures Suspected Sepsis Recent Fever Within 48 Hours: No Infection Criteria Present: None New/Unexplained Altered Menta: No Sepsis Screen: No Definite Risk SIRS Temperature:97.5 Pulse: 96 Respiratory Rate: 18 Laboratory Tests 11/26/18 14:40: White Blood Count 18.0H Blood Pressure 126 /87 Mean: 100 Laboratory Tests 11/26/18 14:40: Platelet Count 340 Results/Orders Lab Results Laboratory Tests Test 11/26/18 14:40 Range/Units White Blood Count 18.0 H 4.3-11.0 10^3/uL Red Blood Count 4.86 4.35-5.85 10^6/uL Hemoglobin 10.4 L 11.5-16.0 G/DL Hematocrit 37 35-52 % Mean Corpuscular Volume 76 L 80-99 FL Mean Corpuscular Hemoglobin 21 L 25-34 PG Mean Corpuscular Hemoglobin Concent 28 L 32-36 G/DL Red Cell Distribution Width 18.2 H 10.0-14.5 % Platelet Count 340 130-400 10^3/uL Mean Platelet Volume 11.4 H 7.4-10.4 FL Neutrophils (%) (Auto) 90 H 42-75 % Lymphocytes (%) (Auto) 3 L 12-44 % Monocytes (%) (Auto) 5 0-12 % Eosinophils (%) (Auto) 2 0-10 % Basophils (%) (Auto) 0 0-10 % Neutrophils # (Auto) 16.3 H 1.8-7.8 X 10^3 Lymphocytes # (Auto) 0.6 L 1.0-4.0 X 10^3 Monocytes # (Auto) 0.8 0.0-1.0 X 10^3 Eosinophils # (Auto) 0.3 0.0-0.3 10^3/uL Basophils # (Auto) 0.0 0.0-0.1 10^3/uL My Orders Orders - DANIELITO SORIANO MD Cbc With Automated Diff (11/26/18 14:40) Comprehensive Metabolic Panel (11/26/18 14:40) Ua Culture If Indicated (11/26/18 14:40) Manual Differential (11/26/18 14:40) Normal Saline 1l Iv (11/26/18 15:00) Vital Signs/I&O 11/26/18 14:47 Temp 97.5 Pulse 96 Resp 18 B/P (MAP) 126/87 (100) Capillary Refill : Less Than 3 Seconds Blood Pressure Mean: 100 Departure Departure-Patient Inst. Referrals: [facility] (PCP/Family) Primary Care Physician DANIELITO SORIANO MD Nov 26, 2018 15:01
[2018-11-26 15:07] LABS: ALANINE AMINOTRANSFERASE 11 U/L (0-55); ALBUMIN 3.8 GM/DL (3.2-4.5); ALKALINE PHOSPHATASE 84 U/L (40-136); BILIRUBIN,TOTAL 0.3 MG/DL (0.1-1.0); BUN/CREATININE RATIO 38; CALCIUM 8.6 MG/DL (8.5-10.1); CARBON DIOXIDE 17 MMOL/L (21-32); CHLORIDE 110 MMOL/L (98-107); CREATININE SERUM 0.72 MG/DL (0.60-1.30); GFR ESTIMATED > 60; GLUCOSE 119 MG/DL (70-105); POTASSIUM 4.8 MMOL/L (3.6-5.0); SODIUM 139 MMOL/L (135-145); TOTAL PROTEIN 7.7 GM/DL (6.4-8.2)
[2018-11-26 15:21] LABS: BAND NEUTROPHILS 0 %; BASOPHILS % (MANUAL) 0 %; EOSINOPHILS % (MANUAL) 0 %; LYMPHOCYTES % (MANUAL) 1 %; MONOCYTES % (MANUAL) 1 %; NEUTROPHILS % (MANUAL) 98 %
[2018-11-26 15:22] LABS: HYPOCHROMASIA SLIGHT; MICROCYTOSIS SLIGHT
[2018-11-26 15:30] LABS: CLARITY,URINE SLIGHTLY CLOUDY; GLUCOSE, URINE (UA) NEGATIVE (NEGATIVE); KETONES,URINE NEGATIVE (NEGATIVE); LEUKOCYTE ESTERASE ,URINE 3+ (NEGATIVE); NITRITE,URINE POSITIVE (NEGATIVE); PH,URINE 5 (5-9); PROTEIN,URINE 3+ (NEGATIVE); UROBILINOGEN,URINE 1 MG/DL (NORMAL)
--- OUTSIDE RECORDS SUMMARY | 2018-11-26 15:33 | XMS REPORT | Clinical Summary ---
Author Author [facility] Organization [facility] Address Unknown Phone Unavailable Care Team Providers Care Director Of Instruction Name Role Phone Osvaldo Palafox DO Unavailable Hermila Durbin MD Unavailable Rishi Cartwright MD Unavailable Donell Haque PA-C Unavailable Lizet Parsons RN Unavailable Unavailable Kristofer Dowling MD Unavailable Unavailable Harvinder Jj MD PCP Slade Merino DO 4 Source Comments Some departments are not documenting in the electronic medical record. If you do not see the information that you expected, contact Release of Information in the Health Information Management department at [phone] for further assistance in locating additional records.[facility] Allergies Comments Active Allergy Reactions Severity Noted Date Can tolerate baby aspirin Aspirin NAUSEA AND Medium 07/19/2014 VOMITING Patient states, "I get awful sick" Benazepril SEE COMMENTS Low 08/30/2014 Codeine HIVES Medium 07/19/2014 Patient states tolerates Cephalexin Penicillins EDEMA Medium 07/19/2014 Peanut HIVES Medium 02/15/2015 Medications End Date Status Medication Sig Dispensed Refills Start Date Active metFORMIN (GLUCOPHAGE) Take 500 mg 0 500 mg tablet by mouth twice daily with meals. Active nitroglycerin (NITROSTAT) Place 0.4 mg 0 0.4 mg tablet under tongue every 5 minutes as needed. Active albuterol (VENTOLIN HFA, Inhale 2 0 PROAIR HFA) 90 Puffs by mcg/actuation inhaler mouth every 4 hours as needed. Active albuterol 0.5% Inhale 2.5 mg 0 (PROVENTIL; VENTOLIN) 2.5 solution as mg/0.5 mL nebu nebulizer directed four solution times daily. Active budesonide/formoterol Inhale 2 0 (SYMBICORT) 160/4.5 mcg Puffs by HFAA inhalation mouth twice daily. Active levothyroxine (SYNTHROID) Take 50 mcg 0 50 mcg tablet by mouth daily 30 minutes before breakfast. Active amLODIPine (NORVASC) 5 mg Take 5 mg by 0 tablet mouth daily. 8 Active cyclobenzaprine Take 10 mg by 0 (FLEXERIL) 10 mg tablet mouth daily. [address] Take 40 mg by 0 (PROTONIX) 40 mg tablet mouth daily. Active aspirin EC 81 mg tablet Take 81 mg by 0 mouth daily. Take with food. Active fluoxetine(+) (PROZAC) 40 Take 40 mg by 0 06/23/ mg capsule mouth daily. 8 Active fluticasone (FLONASE) 50 Apply 1 spray 0 mcg/actuation nasal spray to each 8 nostril as directed daily as needed. Active gabapentin (NEURONTIN) Take 600 mg 0 600 mg tablet by mouth at 8 bedtime daily. Active metoprolol tartrate Take 25 mg by 5 (LOPRESSOR) 25 mg tablet mouth twice 8 daily. Active montelukast (SINGULAIR) Take 10 mg by 0 10 mg tablet mouth at 8 bedtime daily. Active naproxen (NAPROSYN) 500 Take 500 mg 0 06/23/ mg tablet by mouth 8 twice daily as needed. Active tiotropium (SPIRIVA WITH Place 18 mcg 0 HANDIHALER) 18 mcg into inhaler 8 capsule for inhaler and inhale into lungs as directed daily as needed. Active traZODone (DESYREL) 100 Take 100 mg 0 07/17/201 mg tablet by mouth at 8 bedtime daily. Active atorvastatin (LIPITOR) 40 Take 40 mg by 0 mg tablet mouth daily. Active cetirizine (ZYRTEC) 10 mg Take 10 mg by 0 tablet mouth daily. Active docusate (COLACE) 100 mg Take one 180 capsule 3 capsule capsule by 8 mouth twice daily. Active gabapentin (NEURONTIN) Take two 270 capsule 3 300 mg capsule capsules by 8 mouth three times daily. Active sodium hypochlorite Apply 120 mL 0 (DAKIN'S SOLUTION) 0.25 % topically to 8 topical solution affected area daily. Active mupirocin (BACTROBAN) 2 % APPLY TO 22 g 0 topical ointment AFFECTED AREA 8 THREE TIMES DAILY Active HYDROcodone/acetaminophen Take one 50 tablet 0 (+) (NORCO) 10/325 mg tablet by 8 tablet mouth every 6 hours as needed for Pain Max 8 tabs/day 11/09/2018 Discontinued HYDROcodone/acetaminophen Take one 50 tablet 0 (+) (NORCO) 10/325 mg tablet to two 8 tablet tablets by mouth every 4 hours as needed for Pain Max 8 tabs/day Active Problems Problem Noted Date Below knee amputation status, right 10/15/2018 Amputation of right lower extremity 08/20/2018 Avascular necrosis of right talus 06/08/2018 Traumatic arthritis of right ankle 09/18/2016 IC [...] Durbin - referral to Dr. Carlton in [employer] for vaginal pain Gross hematuria 10/24/2015 Overview: [...] IC A&P note. OAB (overactive bladder) Encounters Care Team Description Date Type Specialty Pradip Jaramillo MD Postoperative wound dehiscence, subsequent encounter (Primary Dx) 11/09/2018 Office Visit Orthopedic Surgery Pradip Jaramillo MD Postoperative wound dehiscence, subsequent encounter (Primary Dx) 10/26/2018 Office Visit Orthopedic Surgery Lucius Guerra CRNA 10/15/2018 Anesthesia Event Mert Choi MD 10/15/2018 Hospital Radiology Encounter Pradip Jaramillo MD INCISION AND DRAINAGE POSTOPERATIVE WOUND INFECTION RIGHT BELOW THE KNEE AMPUTATION STUMP WITH APPLICATION OF WOUND VAC 10/15/2018 Surgery Pradip Jaramillo MD Below knee amputation status, right (HCC) 10/15/2018 [facility] Family Medicine - Encounter 10/16/2018 Pradip Jaramillo MD Penetrating wound (Primary Dx) 10/08/2018 Prep for Case Orthopedic Surgery Pradip Jaramillo MD Penetrating wound (Primary Dx) 10/07/2018 Office Visit Orthopedic Surgery Pradip Jaramillo MD 09/21/2018 Refill Orthopedic Surgery Pradip Jaramillo MD Other injury of unspecified body region, initial encounter 09/16/2018 Hospital Lab Encounter Pradip Jaramillo MD Wound drainage (Primary Dx); Postoperative wound dehiscence, initial encounter 09/16/2018 Office Visit Orthopedic Surgery Pradip Jaramillo MD S/P below knee amputation, right (HCC) (Primary Dx) 09/02/2018 Office Visit Orthopedic Surgery from Last 3 Months Immunizations Name Dates Previously Given Next Due Flu Vaccine=>6 Months 08/21/2018 Quadrivalent PF Pneumococcal Vaccine 08/21/2018 (23-[place]or[place] Adult) Family History Medical History Relation Name Comments Diabetes Father Hypertension Mother Relation Name Status Comments Father Mother Social History Date Tobacco Use Types Packs/Day Years Used Quit: 07/28/2018 Former Smoker Cigarettes 3 30 Smokeless Tobacco: Never Used Comments: decreased to .5ppd since 2012 Alcohol Use Drinks/Week oz/Week Comments No Sex Assigned at Date Recorded Not on file Industry Job Start Date Occupation Not on file Not on file Not on file Travel End Travel History Travel Start No recent travel history available. Last Filed Vital Signs Time Taken Vital Sign Reading 10/16/2018 3:00 PM MEDICAL TRANSPORT SPECIALIST Blood Pressure 107/64 10/16/2018 3:00 PM MEDICAL TRANSPORT SPECIALIST Pulse 59 10/16/2018 3:00 PM MEDICAL TRANSPORT SPECIALIST Temperature 37.1 C (98.7 F) 10/24/2015 3:18 PM MEDICAL TRANSPORT SPECIALIST Respiratory Rate 16 10/16/2018 3:00 PM MEDICAL TRANSPORT SPECIALIST Oxygen Saturation 92% - Inhaled Oxygen - Concentration 11/09/2018 10:00 AM MEDICAL TRANSPORT SPECIALIST Weight 82.1 kg (181 lb) 11/09/2018 10:00 AM MEDICAL TRANSPORT SPECIALIST Height 170.2 cm (5' 7") 11/09/2018 10:00 AM MEDICAL TRANSPORT SPECIALIST Body Mass Index 28.35 Plan of Treatment Health Maintenance Due Date Last Done Comments HEPATITIS C SCREENING 1964 PHYSICAL (COMPREHENSIVE) 1971 EXAM HIV SCREENING 1979 DTAP/TDAP VACCINES (1 - 1982 Tdap) CERVICAL CANCER SCREENING 1994 BREAST CANCER SCREENING 2004 COLORECTAL CANCER 2014 SCREENING SHINGLES RECOMBINANT 2014 VACCINE (1 of 2) INFLUENZA VACCINE Completed 08/21/2018 Implants Device Identifier Shelf Expiration Date Model / Serial / Lot Implanted Type Area Manufactur er Right Ankle Plate Procedures Comments Procedure Name Priority Date/Time Associated Diagnosis TELEMETRY STRIPS-SCAN 10/18/2018 8:08 AM MEDICAL TRANSPORT SPECIALIST POC GLUCOSE 10/16/2018 3:54 PM MEDICAL TRANSPORT SPECIALIST POC GLUCOSE 10/16/2018 11:33 AM MEDICAL TRANSPORT SPECIALIST POC GLUCOSE 10/16/2018 7:23 AM MEDICAL TRANSPORT SPECIALIST BASIC METABOLIC PANEL Routine 10/16/2018 4:42 AM MEDICAL TRANSPORT SPECIALIST CBC Routine 10/16/2018 4:42 AM MEDICAL TRANSPORT SPECIALIST POC GLUCOSE 10/15/2018 8:18 PM MEDICAL TRANSPORT SPECIALIST POC GLUCOSE 10/15/2018 5:13 PM MEDICAL TRANSPORT SPECIALIST CULTURE-FUNGAL,OTHER STAT 10/15/2018 Penetrating wound 4:49 PM MEDICAL TRANSPORT SPECIALIST GRAM STAIN STAT 10/15/2018 Penetrating wound 4:49 PM MEDICAL TRANSPORT SPECIALIST CULTURE-WOUND/TISSUE/FLUI STAT 10/15/2018 Penetrating wound D(AEROBIC 4:49 PM MEDICAL TRANSPORT SPECIALIST ONLY)W/SENSITIVITY CULTURE-ANAEROBIC STAT 10/15/2018 Penetrating wound 4:49 PM MEDICAL TRANSPORT SPECIALIST CULTURE-FUNGAL,OTHER STAT 10/15/2018 Penetrating wound 4:48 PM MEDICAL TRANSPORT SPECIALIST GRAM STAIN STAT 10/15/2018 Penetrating wound 4:48 PM MEDICAL TRANSPORT SPECIALIST CULTURE-WOUND/TISSUE/FLUI STAT 10/15/2018 Penetrating wound D(AEROBIC 4:48 PM MEDICAL TRANSPORT SPECIALIST ONLY)W/SENSITIVITY CULTURE-ANAEROBIC STAT 10/15/2018 Penetrating wound 4:48 PM MEDICAL TRANSPORT SPECIALIST CULTURE-FUNGAL,OTHER STAT 10/15/2018 Penetrating wound 4:41 PM MEDICAL TRANSPORT SPECIALIST GRAM STAIN STAT 10/15/2018 Penetrating wound 4:41 PM MEDICAL TRANSPORT SPECIALIST CULTURE-WOUND/TISSUE/FLUI STAT 10/15/2018 Penetrating wound D(AEROBIC 4:41 PM MEDICAL TRANSPORT SPECIALIST ONLY)W/SENSITIVITY CULTURE-ANAEROBIC STAT 10/15/2018 Penetrating wound 4:41 PM MEDICAL TRANSPORT SPECIALIST ANESTHESIA PERIPHERAL Routine 10/15/2018 NERVE BLOCK 3:24 PM MEDICAL TRANSPORT SPECIALIST POC GLUCOSE 10/15/2018 2:12 PM MEDICAL TRANSPORT SPECIALIST POC GLUCOSE 10/15/2018 2:06 PM MEDICAL TRANSPORT SPECIALIST INCISION AND DRAINAGE 10/15/2018 Penetrating wound POSTOPERATIVE WOUND 2:00 PM MEDICAL TRANSPORT SPECIALIST INFECTION - COMPLEX CULTURE-WOUND/TISSUE/FLUI Routine 09/16/2018 Wound drainage D(AEROBIC 1:24 PM CDT ONLY)W/SENSITIVITY CULTURE-FUNGAL,OTHER Routine 09/16/2018 Wound drainage 1:24 PM CDT CULTURE-ANAEROBIC Routine 09/16/2018 Wound drainage 1:24 PM CDT EXERCISE OXIMETRY-SCAN 09/01/2018 3:59 PM CDT ECG-SCAN 08/27/2018 1:34 PM CDT ECG-SCAN 08/27/2018 1:34 PM CDT from Last 3 Months Results * TELEMETRY STRIPS-SCAN (10/18/2018 8:08 AM MEDICAL TRANSPORT SPECIALIST) Narrative Performed At Ordered by an unspecified provider. * POC GLUCOSE (10/16/2018 3:54 PM MEDICAL TRANSPORT SPECIALIST) Only the most recent of 7 results within the time period is included. Glucose, POC 115 (H) 70 - 100 MG/DL [facility] Performing Organization Address City/State/Zipcode Phone Number MAIN LAB [address] [place] [address] * CBC (10/16/2018 4:42 AM MEDICAL TRANSPORT SPECIALIST) White Blood Cells 5.3 4.5 - 11.0 K/UL [facility] RBC 3.85 (L) 4.0 - 5.0 M/UL MAIN [facility] Hemoglobin 9.0 (L) 12.0 - 15.0 GM/DL MAIN [facility] Hematocrit 29.1 (L) 36 - 45 % MAIN [facility] MCV 75.7 (L) 80 - 100 FL [facility] MCH 23.3 (L) 26 - 34 PG [facility]IN [facility] MCHC 30.8 (L) 32.0 - 36.0 G/DL MAIN [facility] RDW 20.1 (H) 11 - 15 % MAIN LAB Platelet Count 225 150 - 400 K/UL MAIN [facility] MPV 9.3 7 - 11 FL [facility] Specimen Blood Performing Organization Address City/[facility]/Zipcode Phone Number [facility] [address] [place] [address] * BASIC METABOLIC PANEL (10/16/2018 4:42 AM MEDICAL TRANSPORT SPECIALIST) Sodium 140 137 - 147 MMOL/L MAIN LAB Potassium 4.7 3.5 - 5.1 MMOL/L MAIN LAB Chloride 110 98 - 110 MMOL/L [facility] CO2 25 21 - 30 MMOL/L MAIN LAB Anion Gap 5 3 - 12 MAIN LAB Glucose 109 (H) 70 - 100 MG/DL MAIN [facility] Blood Urea Nitrogen 18 7 - 25 MG/DL MAIN LAB Creatinine 0.59 0.4 - 1.00 MG/DL [facility] Calcium 8.4 (L) 8.5 - 10.6 MG/DL MAIN LAB eGFR Non >60 >60 mL/min MAIN LAB Comment: The eGFR is not validated for use in drug dosing adjustments.Continue to use estimated creatinine clearance per dosing reference text.Please contact the Clinical Pharmacist for questions. eGFR >60 >60 mL/min [facility] Comment: The eGFR is not validated for use in drug dosing adjustments.Continue to use estimated creatinine clearance per dosing reference text.Please contact the Clinical Pharmacist for questions. Specimen Blood Performing Organization Address City/[facility]/Zipcode Phone Number [facility] [address] [place] [address] * CULTURE-FUNGAL,OTHER (10/15/2018 4:49 PM MEDICAL TRANSPORT SPECIALIST) Only the most recent of 4 results within the time period is included. Battery Name FUNGUS CULTURE MAIN LAB Specimen Description TISSUE [facility] LEG SUPERFICIAL WOUND DEHISCENCE Special Requests NONE [facility] Culture NO GROWTH OF FUNGUS AT 4 WEEKS [facility] Report Status FINAL [facility] 11/15/2018 Specimen Tissue - Tissue Performing Organization Address City/[facility]/Zipcode Phone Number MAIN LAB [address] [place] [address] * GRAM STAIN (10/15/2018 4:49 PM MEDICAL TRANSPORT SPECIALIST) Only the most recent of 3 results within the time period is included. Battery Name GRAM STAIN MAIN LAB Specimen Description TISSUE MAIN LAB LEG SUPERFICIAL WOUND DEHISCENCE Special Requests NONE MAIN LAB Gram Stain FEW MAIN LAB NEUTROPHILS MANY GRAM POSITIVE COCCI MANY GRAM POSITIVE RODS RESEMBLING DIPHTHEROIDS Report Status FINAL MAIN LAB 10/16/2018 Specimen Tissue - Tissue Performing Organization Address [facility] Phone Number [facility] [address] [place] [address] * CULTURE-WOUND/TISSUE/FLUID(AEROBIC ONLY)W/SENSITIVITY (10/15/2018 4:49 PM MEDICAL TRANSPORT SPECIALIST ) Only the most recent of 4 results within the time period is included. Battery Name ROUTINE CULTURE MAIN LAB Specimen Description TISSUE MAIN LAB LEG SUPERFICIAL WOUND DEHISCENCE Special Requests NONE MAIN LAB Direct Gram Stain FEW MAIN LAB NEUTROPHILS MANY GRAM POSITIVE COCCI MANY GRAM POSITIVE RODS RESEMBLING DIPHTHEROIDS Culture Moderate growth MAIN LAB STAPHYLOCOCCUS, COAGULASE NEGATIVE Moderate growth DERMABACTER HOMINIS Moderate growth CORYNEBACTERIUM SPECIES Report Status FINAL MAIN LAB 10/18/2018 Specimen Tissue - Tissue Performing Organization Address [facility] Phone Number MAIN LAB [address] [place] [address] * CULTURE-ANAEROBIC (10/15/2018 4:49 PM MEDICAL TRANSPORT SPECIALIST) Only the most recent of 4 results within the time period is included. Battery Name ANAEROBE CULTURE MAIN LAB Specimen Description TISSUE MAIN LAB LEG SUPERFICIAL WOUND DEHISCENCE Special Requests NONE MAIN LAB Culture Heavy growth MAIN LAB PEPTONIPHILUS HAREI Heavy growth GEMELLA MORBILLORUM Report Status FINAL MAIN LAB 10/21/2018 Specimen Tissue - Tissue Performing Organization Address City/[facility]/Zipcode Phone Number MAIN LAB [address] [place] [address] * ANESTHESIA PERIPHERAL NERVE BLOCK (10/15/2018 3:24 PM MEDICAL TRANSPORT SPECIALIST) Narrative Performed At Mert Choi MD 10/18/20187:31 AM Anesthesia Procedure: Peripheral Nerve Block PERIPHERAL NERVE BLOCK Date/Time: 10/15/2018 3:15 PM Patient location: pre-op Reason for block: at surgeon's request and post-op pain management Preprocedure checklist performed: 2 patient identifiers, risks & benefits discussed, patient evaluated, timeout performed, consent obtained and patient being monitored Sterile technique: - Proper hand washing - Cap, mask - Sterile gloves - Skin prep for antisepsis Peripheral Nerve Block Procedure Patient position: supine Prep: ChloraPrep Monitoring: BP, EKG and continuous pulse ox Block type: popliteal Laterality: right Injection technique: single-shot Procedures: ultrasound guided Local infiltration: lidocaine Needle/cathether: Needle type: Stimuplex Needle gauge: 22 G; Needle length: 4 in Needle location: anatomical landmarks and ultrasound guidance Procedure Outcome Injection assessment: negative aspiration for heme, no paresthesia on injection, incremental injection and local visualized surrounding nerve on ultrasound Observations: adequate block, patient tolerated the procedure well with no immediate complications, comfortable throughout block and no sedation Additional notes: ATTESTATION I was present during the entire procedure performed by a resident Staff name:Mert Pitts MD Date:10/18/2018 Refer to nursing documentation for vitals and monitoring data during procedure. Performed by: HOME MARTIN Authorized by: MERT CHOI Procedure Note Mert Choi MD - 10/15/2018 3:24 PM [facility] Anesthesia Procedure: Peripheral Nerve Block PERIPHERAL NERVE BLOCK Date/Time: 10/15/2018 3:15 PM Patient location: pre-op Reason for block: at surgeon's request and post-op pain management Preprocedure checklist performed: 2 patient identifiers, risks & benefits discussed, patient evaluated, timeout performed, consent obtained and patient being monitored Sterile technique: - Proper hand washing - Cap, mask - Sterile gloves - Skin prep for antisepsis Peripheral Nerve Block Procedure Patient position: supine Prep: ChloraPrep Monitoring: BP, EKG and continuous pulse ox Block type: popliteal Laterality: right Injection technique: single-shot Procedures: ultrasound guided Local infiltration: lidocaine Needle/cathether: Needle type: Stimuplex Needle gauge: 22 G; Needle length: 4 in Needle location: anatomical landmarks and ultrasound guidance Procedure Outcome Injection assessment: negative aspiration for heme, no paresthesia on injection , incremental injection and local visualized surrounding nerve on ultrasound Observations: adequate block, patient tolerated the procedure well with no immediate complications, comfortable throughout block and no sedation Additional notes: ATTESTATION I was present during the entire procedure performed by a resident Staff name: Mert Pitts MD Date: 10/18/2018 Refer to nursing documentation for vitals and monitoring data during procedure. Performed by: HOME MARTIN Authorized by: MERT CHOI * EXERCISE OXIMETRY-SCAN (09/01/2018 3:59 PM CDT) Narrative Performed At Ordered by an unspecified provider. * ECG-SCAN (08/27/2018 1:34 PM CDT) Narrative Performed At Ordered by an unspecified provider. * ECG-SCAN (08/27/2018 1:34 PM CDT) Narrative Performed At Ordered by an unspecified provider. from Last 3 Months Insurance Payer Benefit Subscriber ID Type Phone Address Plan / Group [facility] xxxxxxxxxxx Medicaid Advance Directives Patient has advance care planning documents, and code status on file. For more information, please contact: [facility] [address] [place] [address] Date Inactivated Comments Code Status Date Activated 10/16/2018 7:44 PM Full Code 10/15/2018 8:12 PM Provider has discussed Code Status No, discussion not w/Patient or Family? necessary based on Dx 08/25/2018 8:04 PM Full Code 08/20/2018 10:12 AM Provider has discussed Code Status No, discussion not w/Patient or Family? necessary based on Dx
--- OUTSIDE RECORDS SUMMARY | 2018-11-26 15:33 | XMS REPORT | Encounter Summary ---
Author Author [facility] Organization [facility] Address Unknown Phone Unavailable Care Team Providers Care Transplant Registered Nurse Name Role Phone SarbjitmaryanneOsvaldo DO Unavailable Hermila Durbin MD Unavailable Rishi Cartwright MD Unavailable Donell Haque PA-C Unavailable Lizet Parsons RN Unavailable Unavailable Kristofer Dowling MD Unavailable Unavailable Harvinder Jj MD PCP Slade Merino DO 4 Reason for Visit * Reason Comments Post Operative Visit Encounter Details Care Team Description Date Type Department Pradip Jaramillo MD [address] [facility] [address] [place] [address] Postoperative wound dehiscence, subsequent encounter ( Primary Dx) 11/09/2018 Office Visit [facility] Physicians - Orthopedics [facility] [address] [place] [address] Social History Date Tobacco Use Types Packs/Day [...] Travel Start No recent travel history available. as of this encounter Last Filed Vital Signs Time Taken Vital Sign Reading - Blood Pressure - - Pulse - - Temperature - - Respiratory Rate - - Oxygen Saturation - - Inhaled Oxygen - Concentration 11/09/2018 10:00 AM FRONT END WEB DESIGNER Weight 82.1 kg (181 lb) 11/09/2018 10:00 AM FRONT END WEB DESIGNER Height 170.2 cm (5' 7") 11/09/2018 10:00 AM FRONT END WEB DESIGNER Body Mass Index 28.35 in this encounter Functional Status Date of Assessment Functional Status Response 10/16/2018 Does the patient have a hearing impairment: No 10/16/2018 Does the patient have a visual impairment: No 10/16/2018 Does the patient have impaired ambulation: Yes 10/16/2018 Does the patient have an activity of daily living Yes (ADL) impairment: 10/16/2018 Does the patient have an instrumental activity of Yes daily living (IADL) impairment: Date of Assessment Cognitive Status Response 10/16/2018 Does the patient have a cognitive impairment: No as of this encounter Progress Notes * Pradip Jaramillo MD - 11/09/2018 9:55 AM FRONT END WEB DESIGNER She is here today for postoperative follow up s/p right below-knee amputation. I think things look remarkably improved. She has a nice granulation bed. There 's a few areas that need to fill in a little bit more. I think continuing with the use of her VAC for another three to four week would be reasonable. After that I think she could go to damp-to-dry dressing changes. It's going to ache a little while for this to heal in, but overall I think am optimistic. I have refilled her pain medication today. She will continue with home health for wound VAC changes. I will see her back in four to six weeks. In the presence of Pradip Jaramillo MD, I have taken down these notes, Kendal Grossman. 11/09/2018 10:22 AM T END WEB DESIGNER in this encounter Plan of Treatment Not on fileas of this encounter Visit Diagnoses Diagnosis Postoperative wound dehiscence, subsequent encounter - Primary in this encounter
--- OUTSIDE RECORDS SUMMARY | 2018-11-26 15:33 | XMS REPORT | Encounter Summary ---
Author Author [facility] Organization [facility] Address Unknown Phone Unavailable Care Team Providers Care Flour Mixer Name Role Phone SarbjitmaryanneOsvaldo DO Unavailable Hermila Durbin MD Unavailable Rishi Cartwright MD Unavailable Donell Haque PA-C Unavailable Lizet Parsons RN Unavailable Unavailable Kristofer Dowling MD Unavailable Unavailable Harvinder Jj MD PCP Slade Merino DO 4 Reason for Visit * Reason Comments Post-op Right BKA Encounter Details Care Team Description Date Type Department Pradip Jaramillo MD [address] [facility] [address] [place] [address] Postoperative wound dehiscence, subsequent encounter ( Primary Dx) 10/26/2018 Office Visit [facility] Physicians - Orthopedics [facility] [address] [place] [address] Social History Date Tobacco Use [...] Saturation - - Inhaled Oxygen - Concentration 10/26/2018 12:33 PM 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 Her wound continues to mature. She will continue with use of the wound VAC, and this was reapplied today. I will see her back in two weeks. In the presence of Pradip Jaramillo MD, I have taken down these notes, Kendal Grossman. 10/26/2018 12:42 PM ERING PLANT SUPERVISOR in this encounter Plan of Treatment Not on fileas of this encounter Visit Diagnoses Diagnosis Postoperative wound dehiscence, subsequent encounter - Primary in this encounter
--- OUTSIDE RECORDS SUMMARY | 2018-11-26 15:34 | XMS REPORT | Encounter Summary ---
Author Author [facility] Organization [facility] Address Unknown Phone Unavailable Care Team Providers Care [place] Operator Name Role Phone SarbjitOsvaldo madden Unavailable Hermila Durbin MD Unavailable Rishi Cartwright MD Unavailable Donell Haque PA-C Unavailable Lizet Parsons RN Unavailable Unavailable Kristofer Dowling MD Unavailable Unavailable Harvinder Jj MD PCP Slade Merino DO 4 Encounter Details Care Team Description Date Type Department Mert Addison MD [address] [place] [address] 10/15/2018 Hospital [facility] [address] [place] [address] Social History Date Tobacco Use Types Packs/Day [...] travel history available. as of this encounter Functional Status Date of Assessment Functional Status Response 08/25/2018 Does the patient have a hearing impairment: No 08/25/2018 Does the patient have a visual impairment: Yes 08/25/2018 Does the patient have impaired ambulation: Yes 08/25/2018 Does the patient have an activity of daily living Yes (ADL) impairment: 08/25/2018 Does the patient have an instrumental activity of Yes daily living (IADL) impairment: Date of Assessment Cognitive Status Response 08/25/2018 Does the patient have a cognitive impairment: No as of this encounter Medications at Time of Discharge Start Date End Date Medication Sig Dispensed Refills albuterol (VENTOLIN HFA, Inhale 2 0 PROAIR HFA) 90 Puffs by mcg/actuation inhaler mouth every 4 hours as needed. albuterol 0.5% Inhale 2.5 mg 0 (PROVENTIL; VENTOLIN) 2.5 solution as mg/0.5 mL nebu nebulizer directed four solution times daily. 07/07/2018 amLODIPine (NORVASC) 5 mg Take 5 mg by 0 tablet mouth daily. aspirin EC 81 mg tablet Take 81 mg by 0 mouth daily. Take with food. atorvastatin (LIPITOR) 40 Take 40 mg by 0 mg tablet mouth daily. budesonide/formoterol Inhale 2 0 (SYMBICORT) 160/4.5 mcg Puffs by HFAA inhalation mouth twice daily. cetirizine (ZYRTEC) 10 mg Take 10 mg by 0 tablet mouth daily. 07/12/2018 cyclobenzaprine Take 10 mg by 0 (FLEXERIL) 10 mg tablet mouth daily. 08/24/2018 docusate (COLACE) 100 mg Take one 180 capsule 3 capsule capsule by mouth twice daily. 06/23/2018 fluoxetine(+) (PROZAC) 40 Take 40 mg by 0 mg capsule mouth daily. 05/12/2018 fluticasone (FLONASE) 50 Apply 1 spray 0 mcg/actuation nasal spray to each nostril as directed daily as needed. 09/02/2018 gabapentin (NEURONTIN) Take two 270 capsule 3 300 mg capsule capsules by mouth three times daily. 06/23/2018 gabapentin (NEURONTIN) Take 600 mg 0 600 mg tablet by mouth at bedtime daily. levothyroxine (SYNTHROID) Take 50 mcg 0 50 mcg tablet by mouth daily 30 minutes before breakfast. metFORMIN (GLUCOPHAGE) Take 500 mg 0 500 mg tablet by mouth twice daily with meals. 07/16/2018 metoprolol tartrate Take 25 mg by 5 (LOPRESSOR) 25 mg tablet mouth twice daily. 04/08/2018 montelukast (SINGULAIR) Take 10 mg by 0 10 mg tablet mouth at bedtime daily. 09/27/2018 mupirocin (BACTROBAN) 2 % APPLY TO 22 g 0 topical ointment AFFECTED AREA THREE TIMES DAILY 06/23/2018 naproxen (NAPROSYN) 500 Take 500 mg 0 mg tablet by mouth twice daily as needed. nitroglycerin (NITROSTAT) Place 0.4 mg 0 0.4 mg tablet under tongue every 5 minutes as needed. pantoprazole DR Take 40 mg by 0 (PROTONIX) 40 mg tablet mouth daily. 09/16/2018 sodium hypochlorite Apply 120 mL 0 (DAKIN'S SOLUTION) 0.25 % topically to topical solution affected area daily. 04/08/2018 tiotropium (SPIRIVA WITH Place 18 mcg 0 HANDIHALER) 18 mcg into inhaler capsule for inhaler and inhale into lungs as directed daily as needed. 07/17/2018 traZODone (DESYREL) 100 Take 100 mg 0 mg tablet by mouth at bedtime daily. 09/16/2018 10/26/2018 HYDROcodone/acetaminophen Take one 50 tablet 0 (+) (NORCO) 10/325 mg tablet to two tablet tablets by mouth every 4 hours as needed for Pain Earliest Fill Date: 09/16/18 Max 8 tabs/day 10/15/2018 10/26/2018 oxyCODONE (ROXICODONE, Take one 30 tablet 0 OXY-IR) 5 mg tablet tablet to two tablets by mouth every 3 hours as needed as of this encounter Plan of Treatment Not on fileas of this encounter Visit Diagnoses Not on filein this encounter
--- OUTSIDE RECORDS SUMMARY | 2018-11-26 15:34 | XMS REPORT | Encounter Summary ---
Author Author [facility] Organization [facility] Address Unknown Phone Unavailable Care Team Providers Care Instructional Support Services Director Name Role Phone Osvaldo Palafox DO Unavailable Hermila Durbin MD Unavailable Rishi Cartwright MD Unavailable Donell Haque PA-C Unavailable Lizet Parsons RN Unavailable Unavailable Kristofer Dowling MD Unavailable Unavailable Harvinder Jj MD PCP Slade Merino DO 4 Reason for Visit * Auth/Cert Referred By Contact Referred To Contact Status Reason Specialty Diagnoses / Procedures Diagnoses Penetrating wound Penetrating wound [T14.8XXA] P rocedures MS INCISION & DRAINAGE COMPLEX PO WOUND INFECTION MS NEGATIVE PRESSURE WOUND THERAPY DME </=50 SQ CM MS INCISION & DRAINAGE COMPLEX PO WOUND INFECTION MS NEGATIVE PRESSURE WOUND THERAPY DME </=50 SQ CM INCISION AND DRAINAGE POSTOPERATIVE WOUND INFECTION RIGHT BELOW THE KNEE AMPUTATION STUMP APPLICATION NEGATIVE PRESSURE WOUND THERAPY Encounter Details Care Team Description Date Type Department Pradip Jaramillo MD [address] [facility] [address] [place], [place] [id number] Below knee amputation status, right (HCC) 10/15/2018 Hospital Ortho/Fam Med - Encounter Main [facility] 4th fl Unit 10/16/2018 [address] [place], [place] [id number] Social History Date Tobacco Use Types Packs/Day [...] Taken Vital Sign Reading 10/16/2018 3:00 PM WATER SERVICE DISPATCHER Blood Pressure 107/64 10/16/2018 3:00 PM WATER SERVICE DISPATCHER Pulse 59 10/16/2018 3:00 PM WATER SERVICE DISPATCHER Temperature 37.1 C (98.7 F) - Respiratory Rate - 10/16/2018 3:00 PM WATER SERVICE DISPATCHER Oxygen Saturation 92% - Inhaled Oxygen - Concentration 10/15/2018 8:22 PM WATER SERVICE DISPATCHER Weight 83.8 kg (184 lb 11.9 oz) 10/15/2018 8:22 PM WATER SERVICE DISPATCHER Height 170.2 cm (5' 7") 10/15/2018 8:22 PM WATER SERVICE DISPATCHER Body Mass Index 28.94 in this encounter Functional Status Date of [...] hours as needed as of this encounter Progress Notes * Laine Kaiser RN - 10/16/2018 5:39 PM WATER SERVICE DISPATCHER Xin Fonseca discharged on 10/16/2018. . Discharge instructions reviewed with patient. Valuables returned: yes Personal Items / Valuables: Clothing, Assistive Devices Assistive Devices Type: Wheelchair Where Are Valuables Stored?: valuables/belongings in [place] Home medications: n/a . Functional assessment at discharge complete: yes R SERVICE DISPATCHER * Laine Kaiser RN - 10/16/2018 12:01 PM WATER SERVICE DISPATCHER Hard copy of patients oxycodone prescription sent home with patients brother in [place], yesterday and patient said he will help her get medication. R SERVICE DISPATCHER * Deana Gonzalez, PT - 10/16/2018 11:20 AM WATER SERVICE DISPATCHER PHYSICAL THERAPY NOTE Physical Therapy orders received and chart reviewed. Per discussion with OT, patient denies changes from baseline mobility. Patient endorses no concerns with mobility at home. Physical therapy services will be discontinued at this time, please re-consult if the patient has a change in mobility status. Therapist: Deana Gonzalez DPT Date: 10/16/2018 R SERVICE DISPATCHER * Heather Palmer, OT - 10/16/2018 10:09 AM WATER SERVICE DISPATCHER OCCUPATIONAL THERAPY NOTE Patient denies changes from baseline ADLs and functional mobility and reports no history of balance loss or falls in the last three months. Patient has not had a procedure or surgery that would make getting dressed difficult, including putting on socks and shoes. Patient has not demonstrated or reported new difficulties with vision when completing functional tasks. Patient endorses no concerns with functional skills at home. Currently, the patient is transferring bed <> w/c without difficulty-baseline- No ambulation Encouraged patient to continue to perform functional skills/ADLs while in the hospital and discussed the ability for the patient to complete their ADL s with the bedside nursing staff. Occupational therapy services will be discontinued at this time, please re-consult if the patient has a change in functional status. Therapist: Heather Palmer OT Date: 10/16/2018 R SERVICE DISPATCHER * Elba Galan MD - 10/16/2018 7:07 AM WATER SERVICE DISPATCHER S: No acute events. Pain well-controlled on current regimen. Patient tolerating current diet. O: Blood pressure 133/69, pulse 65, temperature 36.4 C (97.6 F), height 170.2 cm (67"), weight 83.8 kg (184 lb 11.9 oz), SpO2 94 %. General: AAOx3, NAD Cardiac: RRR Respirations: Unlabored Abdomen: soft, nt Extremities: right lower extremity compartments soft, dressing in place, wv with suction Post-op Drains: (24 hours) Hemovac: Wound VAC: No results for input(s): PTT, INR in the last 72 hours. CBC w/Diff Lab Results Component Value Date/Time WBC 5.3 10/16/2018 04:42 AM HGB 9.0 (L) 10/16/2018 04:42 AM HCT 29.1 (L) 10/16/2018 04:42 AM PLTCT 225 10/16/2018 04:42 AM Basic Metabolic Profile Lab Results Component Value Date/Time NA 140 10/16/2018 04:42 AM K 4.7 10/16/2018 04:42 AM CL 110 10/16/2018 04:42 AM CO2 25 10/16/2018 04:42 AM GAP 5 10/16/2018 04:42 AM Lab Results Component Value Date/Time BUN 18 10/16/2018 04:42 AM CR 0.59 10/16/2018 04:42 AM GLU 109 (H) 10/16/2018 04:42 AM A/P: BKA stump dehiscence s/p I&D with wv placement -PT OT -weight bearing: NWB RLE -DVT ppx: mobilization -PO for pain control -acute blood loss anemia-stable Dispo: dc today once family brings her Oxygen R SERVICE DISPATCHER * Andrzej Warren RN - 10/15/2018 8:04 PM WATER SERVICE DISPATCHER Patient arrived on unit via cart accompanied by transport. Patient transferred to the bed without assistance. Assessment completed, refer to flowsheet for details. Orders released, reviewed, and implemented as appropriate. Oriented to surroundings, call light within reach. Plan of care reviewed. Will continue to monitor and assess. R SERVICE DISPATCHER * Ruba Murrell RN - 10/15/2018 6:25 PM WATER SERVICE DISPATCHER Pt unable to maintain O2 on RA. IS treatments and deep breathing done. Pt wears home O2 at night but did not bring oxygen to transport home. science manager was called and unable to get oxygen for pt to transport home. Ortho resident paged. R SERVICE DISPATCHER in this encounter H&P Notes * Elba Galan MD - 10/15/2018 1:21 PM WATER SERVICE DISPATCHER H&P Interval Note Name: Xin Fonseca Date:10/15/2018 I have examined the patient, and there are no significant changes in their condition, from the previous H&P performed on 10/07/18. Elba Galan MD Pager She is here today for postpoerative follow up s/p right below-knee amputation. She has continued smoking. She states that she is having pain with the dressing. She is having home health come three times a week for dressing changes. On exam she has fairly significant wound breakdown. I have taken out her sutures. I have debrided some of this tissue around the margins. It doesn' t seem like it goes deep. We will go ahead and take a culture today. She is having her dressing changed three times a week. It's still pretty soupy. I really think that getting her a VAC would make some sense, and I would also get her set up for a formal I&D. At that time we will place the VAC. The surgery, convalescence and rehab, along with the risks, hazards and benefits were discussed with the patient in detail. I have applied a dry dressing, and we will get her set up for surgery on Thursday. In the presence of Pradip Jaramillo MD, I have taken down these notes, Kendal Grossman. 10/07/2018 1:25 PM R SERVICE DISPATCHER in this encounter Miscellaneous Notes * Case Mgmt DC Plan - Gloria Motta - 10/16/2018 10:44 AM WATER SERVICE DISPATCHER Request to Arrange Patient Transportation Received request from Arlene yolanda [facility] to arrange transportation for pt to d/ c home to [address] [place] [address] [address], [facility] [address]. Date and time of transport: 10/16/18 between [id number] Transport company: [employer] [phone] Esl Tutor: Renny Confirmation # : [id number] Instructions for wheelchair van driver: Patient requires w/c van. Per unit 43 RN, pt owns w/c and has with her in the room. To check the status of this ride please call [phone] use confirmation number [id number]. Gloria Motta Pipelines Supervisor For further assistance please contact [facility] *[phone] R SERVICE DISPATCHER * Case Mgmt DC Plan - Arlene Borrero - 10/16/2018 10:12 AM WATER SERVICE DISPATCHER SOCIAL WORK NOTE Name: Xintito Flores [facility] #: [id number] PLAN: Pt will discharge elliott when medically stable. INTERVENTION: Team called and reported pt needs Medicaid transport set up. tasked KEY HOLDER to complete this. Arlene [facility] Social Work *[phone] R SERVICE DISPATCHER * Anesthesia Post Op Day 1 - Helena Marinelli SRNA - 10/16/2018 9:45 AM WATER SERVICE DISPATCHER Anesthesia Follow-Up Evaluation: Post-Procedure Day One Name: Xin Fonseca : 1965 Age: 53 y.o. Sex: female Procedure Date: 10/15/2018 Procedure: Procedure(s) with comments: INCISION AND DRAINAGE POSTOPERATIVE WOUND INFECTION RIGHT BELOW THE KNEE AMPUTATION STUMP WITH APPLICATION OF WOUND VAC - CASE LENGTH 30 MINUTES Physical Assessment Height: 170.2 cm (67") Weight: 83.8 kg (184 lb 11.9 oz) Vital Signs (Last Filed in 24 hours) BP: 133/69 (10/16 513) Temp: 36.4 C (97.6 F) (10/16 513) Pulse: 65 (10/16 631) Respirations: 16 PER MINUTE (10/16 631) SpO2: 94 % (10/16 631) O2 Delivery: Nasal Cannula (10/16 513) SpO2 Pulse: 62 (10/15 1940) Height: 170.2 cm (67") (10/15 2022) Patient History Allergies Allergies Allergen Reactions Asa [Aspirin] NAUSEA AND VOMITING Can tolerate baby aspirin Codeine HIVES Pcn [Penicillins] EDEMA Patient states tolerates Cephalexin Peanut HIVES Benazepril SEE COMMENTS Patient states, "I get awful sick" Medications Scheduled Meds: albuterol (PROAIR HFA, VENTOLIN HFA, or PROVENTIL HFA) inhaler 2 puff 2 puff Inhalation BID & PRN amLODIPine (NORVASC) tablet 5 mg 5 mg Oral QDAY aspirin EC tablet 81 mg 81 mg Oral QDAY atorvastatin (LIPITOR) tablet 40 mg 40 mg Oral QDAY budesonide/formoterol (SYMBICORT HFA) 160/4.5 mcg inhalation 2 puff 2 puff Inhalation BID cetirizine (ZYRTEC) tablet 10 mg 10 mg Oral QDAY cyclobenzaprine (FLEXERIL) tablet 10 mg 10 mg Oral QDAY docusate (COLACE) capsule 100 mg 100 mg Oral BID enoxaparin (LOVENOX) syringe 40 mg 40 mg Subcutaneous QDAY(21) gabapentin (NEURONTIN) capsule 600 mg 600 mg Oral TID INHALATIONAL SPACING DEVICE MISC SPCR (Cabinet Override) NOW insulin aspart U-100 (NOVOLOG FLEXPEN) injection PEN 0-7 Units 0-7 Units Subcutaneous ACHS levothyroxine (SYNTHROID) tablet 50 mcg 50 mcg Oral QDAY 30 min before breakfast metoprolol tartrate (LOPRESSOR) tablet 25 mg 25 mg Oral BID milk of magnesia (CONC) oral suspension 10 mL 10 mL Oral QDAY(21) montelukast (SINGULAIR) tablet 10 mg 10 mg Oral QHS pantoprazole DR (PROTONIX) tablet 40 mg 40 mg Oral QDAY sodium hypochlorite (DAKIN'S 1/2 STRENGTH) 0.25 % topical solution Topical QDAY tiotropium (SPIRIVA) capsule for inhaler 1 capsule 1 capsule Inhalation QDAY traZODone (DESYREL) tablet 100 mg 100 mg Oral QHS Continuous Infusions: PRN and Respiratory Meds:acetaminophen Q4H PRN OR acetaminophen Q4H PRN, albuterol 0.5% PRN, bisacodyl QDAY PRN, diphenhydrAMINE Q6H PRN OR diphenhydrAMINE Q6H PRN, fentaNYL citrate PF Q1H PRN, nitroglycerin Q5 MIN PRN, ondansetron (ZOFRAN) IV Q6H PRN, oxyCODONE Q3H PRN Diagnostic Tests Hematology: Lab Results Component Value Date HGB 9.0 10/16/2018 HCT 29.1 10/16/2018 PLTCT 225 10/16/2018 WBC 5.3 10/16/2018 NEUT 72 08/23/2018 ANC 5.40 08/23/2018 ALC 0.90 08/23/2018 JC 13 08/23/2018 AMC 1.00 08/23/2018 EOSA 2 08/23/2018 ABC 0.00 08/23/2018 MCV 75.7 10/16/2018 MCH 23.3 10/16/2018 MCHC 30.8 10/16/2018 MPV 9.3 10/16/2018 RDW 20.1 10/16/2018 General Chemistry: Lab Results Component Value Date NA 140 10/16/2018 K 4.7 10/16/2018 CL 110 10/16/2018 CO2 25 10/16/2018 GAP 5 10/16/2018 BUN 18 10/16/2018 CR 0.59 10/16/2018 GLU 109 10/16/2018 CA 8.4 10/16/2018 ALBUMIN 3.0 08/24/2018 TOTBILI 0.3 08/24/2018 Coagulation: Lab Results Component Value Date PTT 29.8 08/30/2014 INR 1.0 08/30/2014 Follow-Up Assessment Patient location during evaluation: floor Anesthetic Complications: Anesthetic complications: The patient did not experience any anesthestic complications. Pain: Score: 7 Management:satisfactory to patient Level of Consciousness: awake and alert Hydration:acceptable Airway Patency: patent Respiratory Status: acceptable and room air Cardiovascular Status:acceptable, hemodynamically stable and stable Regional/Neuroaxial: R SERVICE DISPATCHER * Patient Education - Andrzej Warren RN - 10/16/2018 4:03 AM WATER SERVICE DISPATCHER Pt education folder initiated and placed on bedside table for review with day RN R SERVICE DISPATCHER * Procedures (Immed Post or Bedside) - Elba Galan MD - 10/15/2018 5:07 PM WATER SERVICE DISPATCHER Brief Operative Note Name: Xin Fonseca is a 53 y.o. female : 1965 DATE OF OPERATION: 10/15/2018 Date: 10/15/2018 Preoperative Dx: Penetrating wound [T14.8XXA] Post-op Diagnosis * Penetrating wound [T14.8XXA] Procedure(s) (LRB): INCISION AND DRAINAGE POSTOPERATIVE WOUND INFECTION RIGHT BELOW THE KNEE AMPUTATION STUMP WITH APPLICATION OF WOUND VAC (Right) Anesthesia Type: General Surgeon(s) and Role: * Pradip Jaramillo MD - Primary * Elba Galan MD - Resident - Assisting * Darryl Andre MD - Resident - Assisting Findings: right below the knee amputation stump dehiscence Estimated Blood Loss: No blood loss documented. Specimen(s) Removed/Disposition: ID Type Source Tests Collected by Time Destination A : A) RIGHT BELOW KNEE STUMP DEEP Tissue Leg CULTURE-ANAEROBIC, CULTURE-WOUND/ TISSUE/FLUID(AEROBIC ONLY)W/SENSITIVITY, CULTURE-TB (AFB), GRAM STAIN, CULTURE- FUNGAL,OTHER Pradip Jaramillo MD 10/15/2018 1641 B : B) RIGHT BELOW KNEE STUMP DEEP Tissue Leg CULTURE-ANAEROBIC, CULTURE-WOUND/ TISSUE/FLUID(AEROBIC ONLY)W/SENSITIVITY, CULTURE-TB (AFB), GRAM STAIN, CULTURE- FUNGAL,OTHER Pradip Jaramillo MD 10/15/2018 1648 C : SUPERFICIAL WOUND DEHISCENCE Tissue Leg CULTURE-ANAEROBIC, CULTURE-WOUND/ TISSUE/FLUID(AEROBIC ONLY)W/SENSITIVITY, CULTURE-TB (AFB), GRAM STAIN, CULTURE- FUNGAL,OTHER Pradip Jaramillo MD 10/15/2018 1649 Complications: None Implants: None Drains: Other vac via Disposition: PACU - kristine Galan MD Pager R SERVICE DISPATCHER * Operative Report (Direct Entry) - Pradip Jaramillo MD - 10/15/2018 4:18 PM WATER SERVICE DISPATCHER OPERATIVE REPORT Name: Xin Fonseca is a 53 y.o. female : 1965 DATE OF OPERATION: 10/15/2018 Surgeon(s) and Role: * Pradip Jaramillo MD - Primary * Elba Galan MD - Resident - Assisting * Darryl Andre MD - Resident - Assisting Preoperative Diagnosis: Penetrating wound [T14.8XXA] Post-op Diagnosis * Penetrating wound [T14.8XXA] Procedure(s) (LRB): INCISION AND DRAINAGE POSTOPERATIVE WOUND INFECTION RIGHT BELOW THE KNEE AMPUTATION STUMP WITH APPLICATION OF WOUND VAC (Right) Anesthesia Type: General Indications for procedure: Xin Mirza is a 53-year-old female who previously received a right below- knee amputation. She continued smoking postoperatively and subsequently developed wound healing issues. She was noted to have a fair amount of wound breakdown of her stump in clinic despite home health dressing changes 3 times a week. Given the condition of her wound is indicated to take the patient to the operating room for an irrigation and debridement as well as wound VAC placement. The risks and benefits of operative management were addressed with the patient and she wished to proceed with the surgery. Description and findings of the operative procedure: After consent was obtained the patient was taken back to the operative suite where appropriate anesthesia was performed. The patient was prepped and draped in the usual sterile fashion. The leg was elevated and a tourniquet was applied to 350mmHg, an Esmarch was not used given the presence of possible infection. An approximately 20 x 4 cm area of superficial dehiscence was present on the distal aspect of the stump. No areas of the wound were able to be probed to deep tissue. Cultures were taken. There was no gross purulence. The edges of the wound were appropriately incised back to healthy appearing tissue. The wound was copiously irrigated with 3 L of normal saline. It was decided to not primarily close the wound given the risk of skin necrosis and possible infection. Therefore a Karley wound vacuum was applied to the wound to allow it to heal by secondary intention. Care was taken to avoid maceration of the skin edges. A soft dressing was placed over the distal stump. The patient was awakened in the operating room and was subsequently taken back to the pre-post area without complication. Dr. Jaramillo was present for all james portions of the case. Estimated Blood Loss: Minimal Specimen(s) Removed/Disposition: ID Type Source Tests Collected by Time Destination A : A) RIGHT BELOW KNEE STUMP DEEP Tissue Leg CULTURE-ANAEROBIC, CULTURE-WOUND/ TISSUE/FLUID(AEROBIC ONLY)W/SENSITIVITY, CULTURE-TB (AFB), GRAM STAIN, CULTURE- FUNGAL,OTHER Pradip Jaramillo MD 10/15/2018 1573 B : B) RIGHT BELOW KNEE STUMP DEEP Tissue Leg CULTURE-ANAEROBIC, CULTURE-WOUND/ TISSUE/FLUID(AEROBIC ONLY)W/SENSITIVITY, CULTURE-TB (AFB), GRAM STAIN, CULTURE- FUNGAL,OTHER Pradip Jaramillo MD 10/15/2018 1649 C : SUPERFICIAL WOUND DEHISCENCE Tissue Leg CULTURE-ANAEROBIC, CULTURE-WOUND/ TISSUE/FLUID(AEROBIC ONLY)W/SENSITIVITY, CULTURE-TB (AFB), GRAM STAIN, CULTURE- FUNGAL,OTHER Pradip Jaramillo MD 10/15/2018 1647 Attestation: I performed this procedure with a resident. Darryl Andre MD Pager [phone] R SERVICE DISPATCHER in this encounter Plan of Treatment Date/Time Name Priority Associated Diagnoses 10/15/2018 2:39 PM WATER SERVICE DISPATCHER POC ANES US GUIDED NERVE BLOCK Routine Order Schedule Name Priority Associated Diagnoses ONE TIME for 1 Occurrences starting 10/15/2018 until 10/15/2018 POC ANES US GUIDED NERVE BLOCK Routine Ordered: 10/15/2018 NEGATIVE PRESSURE THERAPY DRAIN - Routine 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) as of this encounter Procedures Comments Procedure Name Priority Date/Time Associated Diagnosis TELEMETRY STRIPS-SCAN 10/18/2018 8:08 AM WATER SERVICE DISPATCHER POC GLUCOSE 10/16/2018 3:54 PM WATER SERVICE DISPATCHER POC GLUCOSE 10/16/2018 11:33 AM WATER SERVICE DISPATCHER POC GLUCOSE 10/16/2018 7:23 AM WATER SERVICE DISPATCHER CBC Routine 10/16/2018 4:42 AM WATER SERVICE DISPATCHER BASIC METABOLIC PANEL Routine 10/16/2018 4:42 AM WATER SERVICE DISPATCHER POC GLUCOSE 10/15/2018 8:18 PM WATER SERVICE DISPATCHER POC GLUCOSE 10/15/2018 5:13 PM WATER SERVICE DISPATCHER CULTURE-FUNGAL,OTHER STAT 10/15/2018 Penetrating wound 4:49 PM WATER SERVICE DISPATCHER GRAM STAIN STAT 10/15/2018 Penetrating wound 4:49 PM WATER SERVICE DISPATCHER CULTURE-WOUND/TISSUE/FLUI STAT 10/15/2018 Penetrating wound D(AEROBIC 4:49 PM WATER SERVICE DISPATCHER ONLY)W/SENSITIVITY CULTURE-ANAEROBIC STAT 10/15/2018 Penetrating wound 4:49 PM WATER SERVICE DISPATCHER CULTURE-FUNGAL,OTHER STAT 10/15/2018 Penetrating wound 4:48 PM WATER SERVICE DISPATCHER GRAM STAIN STAT 10/15/2018 Penetrating wound 4:48 PM WATER SERVICE DISPATCHER CULTURE-WOUND/TISSUE/FLUI STAT 10/15/2018 Penetrating wound D(AEROBIC 4:48 PM WATER SERVICE DISPATCHER ONLY)W/SENSITIVITY CULTURE-ANAEROBIC STAT 10/15/2018 Penetrating wound 4:48 PM WATER SERVICE DISPATCHER CULTURE-FUNGAL,OTHER STAT 10/15/2018 Penetrating wound 4:41 PM WATER SERVICE DISPATCHER GRAM STAIN STAT 10/15/2018 Penetrating wound 4:41 PM WATER SERVICE DISPATCHER CULTURE-WOUND/TISSUE/FLUI STAT 10/15/2018 Penetrating wound D(AEROBIC 4:41 PM WATER SERVICE DISPATCHER ONLY)W/SENSITIVITY CULTURE-ANAEROBIC STAT 10/15/2018 Penetrating wound 4:41 PM WATER SERVICE DISPATCHER POC GLUCOSE 10/15/2018 2:12 PM WATER SERVICE DISPATCHER POC GLUCOSE 10/15/2018 2:06 PM WATER SERVICE DISPATCHER INCISION AND DRAINAGE 10/15/2018 Penetrating wound POSTOPERATIVE WOUND 2:00 PM WATER SERVICE DISPATCHER INFECTION - COMPLEX in this encounter Results * TELEMETRY STRIPS-SCAN (10/18/2018 8:08 AM WATER SERVICE DISPATCHER) Narrative Performed At Ordered by an unspecified provider. * POC GLUCOSE (10/16/2018 3:54 PM WATER SERVICE DISPATCHER) Glucose, POC 115 (H) 70 - 100 MG/DL [facility] Performing Organization Address [facility] Phone Number [facility] [address] [place] [address] * POC GLUCOSE (10/16/2018 11:33 AM WATER SERVICE DISPATCHER) Glucose, POC 125 (H) 70 - 100 MG/DL [facility] Performing Organization Address [facility] Phone Number [facility] [address] [place] [address] * POC GLUCOSE (10/16/2018 7:23 AM WATER SERVICE DISPATCHER) Glucose, POC 106 (H) 70 - 100 MG/DL [facility] Performing Organization Address [facility] Phone Number [facility] [address] [place] [address] * BASIC METABOLIC PANEL (10/16/2018 4:42 AM WATER SERVICE DISPATCHER) Sodium 140 137 - 147 MMOL/L [facility] Potassium 4.7 3.5 - 5.1 MMOL/L [facility] Chloride 110 98 - 110 MMOL/L [facility] CO2 25 21 - 30 MMOL/L [facility] Anion Gap 5 3 - 12 [facility] Glucose 109 (H) 70 - 100 MG/DL [facility] Blood Urea Nitrogen 18 7 - 25 MG/DL [facility] Creatinine 0.59 0.4 - 1.00 MG/DL [facility] Calcium 8.4 (L) 8.5 - 10.6 MG/DL [facility] eGFR Non >60 >60 mL/min [facility] Comment: The eGFR is not validated for use in drug dosing adjustments.Continue to use estimated creatinine clearance per dosing reference text.Please contact the Clinical Pharmacist for questions. eGFR >60 >60 mL/min [facility] Comment: The eGFR is not validated for use in drug dosing adjustments.Continue to use estimated creatinine clearance per dosing reference text.Please contact the Clinical Pharmacist for questions. Specimen Blood Performing Organization Address [facility] Phone Number [facility] [address] [place] [address] * CBC (10/16/2018 4:42 AM WATER SERVICE DISPATCHER) White Blood Cells 5.3 4.5 - 11.0 K/UL [facility] RBC 3.85 (L) 4.0 - 5.0 M/UL [facility] Hemoglobin 9.0 (L) 12.0 - 15.0 GM/DL [facility] Hematocrit 29.1 (L) 36 - 45 % [facility] MCV 75.7 (L) 80 - 100 FL [facility] MCH 23.3 (L) 26 - 34 PG [facility] MCHC 30.8 (L) 32.0 - 36.0 G/DL [facility] RDW 20.1 (H) 11 - 15 % [facility] Platelet Count 225 150 - 400 K/UL [facility] MPV 9.3 7 - 11 FL [facility] Specimen Blood Performing Organization Address [facility] Phone Number [facility] [address] [place] [address] * POC GLUCOSE (10/15/2018 8:18 PM WATER SERVICE DISPATCHER) Glucose, POC 119 (H) 70 - 100 MG/DL [facility] Performing Organization Address [facility]ode Phone Number [facility] [address] [place] [address] * POC GLUCOSE (10/15/2018 5:13 PM WATER SERVICE DISPATCHER) Glucose, POC 86 70 - 100 MG/DL [facility] Performing Organization Address [facility]ode Phone Number [facility] [address] [place] [address] * CULTURE-FUNGAL,OTHER (10/15/2018 4:49 PM WATER SERVICE DISPATCHER) Battery Name FUNGUS CULTURE [facility] Specimen Description TISSUE [facility] LEG SUPERFICIAL WOUND DEHISCENCE Special Requests NONE [facility] Culture NO GROWTH OF FUNGUS AT 4 WEEKS [facility] Report Status FINAL [facility] 11/15/2018 Specimen Tissue - Tissue Performing Organization Address [facility] Phone Number [facility] [address] [place] [address] * GRAM STAIN (10/15/2018 4:49 PM WATER SERVICE DISPATCHER) Battery Name GRAM STAIN [facility] Specimen Description TISSUE [facility] LEG SUPERFICIAL WOUND DEHISCENCE Special Requests NONE [facility] Gram Stain FEW [facility] NEUTROPHILS MANY GRAM POSITIVE COCCI MANY GRAM POSITIVE RODS RESEMBLING DIPHTHEROIDS Report Status FINAL [facility] 10/16/2018 Specimen Tissue - Tissue Performing Organization Address [facility] Phone Number [facility] [address] [place] [address] * CULTURE-WOUND/TISSUE/FLUID(AEROBIC ONLY)W/SENSITIVITY (10/15/2018 4:49 PM WATER SERVICE DISPATCHER ) Battery Name ROUTINE CULTURE [facility] Specimen Description TISSUE [facility] LEG SUPERFICIAL WOUND DEHISCENCE Special Requests NONE [facility] Direct Gram Stain FEW [facility] NEUTROPHILS MANY GRAM POSITIVE COCCI MANY GRAM POSITIVE RODS RESEMBLING DIPHTHEROIDS Culture Moderate growth [facility] STAPHYLOCOCCUS, COAGULASE NEGATIVE Moderate growth DERMABACTER HOMINIS Moderate growth CORYNEBACTERIUM SPECIES Report Status FINAL [facility] 10/18/2018 Specimen Tissue - Tissue Performing Organization Address [facility] Phone Number [facility] [address] [place] [address] * CULTURE-ANAEROBIC (10/15/2018 4:49 PM WATER SERVICE DISPATCHER) Battery Name ANAEROBE CULTURE [facility] Specimen Description TISSUE [facility] LEG SUPERFICIAL WOUND DEHISCENCE Special Requests NONE [facility] Culture Heavy growth [facility] PEPTONIPHILUS HAREI Heavy growth GEMELLA MORBILLORUM Report Status FINAL [facility] 10/21/2018 Specimen Tissue - Tissue Performing Organization Address [facility] Phone Number [facility] [address] [place] [address] * CULTURE-FUNGAL,OTHER (10/15/2018 4:48 PM WATER SERVICE DISPATCHER) Battery Name FUNGUS CULTURE [facility] Specimen Description FLOCKED SWAB [facility] B RIGHT LEG BELOW THE KNEE STUMP DEEP Special Requests NONE [facility] Culture NO GROWTH OF FUNGUS AT 4 WEEKS [facility] Report Status FINAL [facility] 11/15/2018 Specimen Tissue - Flocked Swab Performing Organization Address [facility] Phone Number [facility] [address] [place] [address] * GRAM STAIN (10/15/2018 4:48 PM WATER SERVICE DISPATCHER) Battery Name GRAM STAIN [facility] Specimen Description FLOCKED SWAB [facility] B RIGHT LEG BELOW THE KNEE STUMP DEEP Special Requests NONE [facility] Gram Stain NO NEUTROPHILS SEEN [facility] MODERATE GRAM POSITIVE COCCI FEW GRAM POSITIVE RODS Report Status FINAL [facility] 10/16/2018 Specimen Tissue - Flocked Swab Performing Organization Address [facility] Phone Number [facility] [address] [place] [address] * CULTURE-WOUND/TISSUE/FLUID(AEROBIC ONLY)W/SENSITIVITY (10/15/2018 4:48 PM WATER SERVICE DISPATCHER ) Battery Name ROUTINE CULTURE [facility] Specimen Description FLOCKED SWAB [facility] B RIGHT LEG BELOW THE KNEE STUMP DEEP Special Requests NONE [facility] Direct Gram Stain NO NEUTROPHILS SEEN [facility] MODERATE GRAM POSITIVE COCCI FEW GRAM POSITIVE RODS Culture Light growth [facility] STAPHYLOCOCCUS, COAGULASE NEGATIVE Light growth DERMABACTER HOMINIS Report Status FINAL [facility] 10/18/2018 Specimen Tissue - Flocked Swab Performing Organization Address [facility] Phone Number [facility] [address] [place] [address] * CULTURE-ANAEROBIC (10/15/2018 4:48 PM WATER SERVICE DISPATCHER) Battery Name ANAEROBE CULTURE [facility] Specimen Description FLOCKED SWAB [facility] B RIGHT LEG BELOW THE KNEE STUMP DEEP Special Requests NONE [facility] Culture Moderate growth [facility] PEPTONIPHILUS HAREI Moderate growth GEMELLA MORBILLORUM Report Status FINAL [facility] 10/21/2018 Specimen Tissue - Flocked Swab Performing Organization Address [facility] Phone Number [facility] [address] [place] [address] * CULTURE-FUNGAL,OTHER (10/15/2018 4:41 PM WATER SERVICE DISPATCHER) Battery Name FUNGUS CULTURE [facility] Specimen Description FLOCKED SWAB [facility] A RIGHT LEG BELOW THE KNEE STUMP DEEP Special Requests NONE [facility] Culture NO GROWTH OF FUNGUS AT 4 WEEKS [facility] Report Status FINAL [facility] 11/15/2018 Specimen Tissue - Flocked Swab Performing Organization Address [facility] Phone Number [facility] [address] [place] [address] * GRAM STAIN (10/15/2018 4:41 PM WATER SERVICE DISPATCHER) Battery Name GRAM STAIN [facility] Specimen Description FLOCKED SWAB [facility] A RIGHT LEG BELOW THE KNEE STUMP DEEP Special Requests NONE [facility] Gram Stain NO NEUTROPHILS SEEN [facility] FEW GRAM POSITIVE COCCI Report Status FINAL [facility] 10/16/2018 Specimen Tissue - Flocked Swab Performing Organization Address [facility] Phone Number [facility] [address] [place] [address] * CULTURE-WOUND/TISSUE/FLUID(AEROBIC ONLY)W/SENSITIVITY (10/15/2018 4:41 PM WATER SERVICE DISPATCHER ) Battery Name ROUTINE CULTURE [facility] Specimen Description FLOCKED SWAB [facility] A RIGHT LEG BELOW THE KNEE STUMP DEEP Special Requests NONE [facility] Direct Gram Stain NO NEUTROPHILS SEEN [facility] FEW GRAM POSITIVE COCCI Culture Light growth [facility] STAPHYLOCOCCUS, COAGULASE NEGATIVE Light growth DERMABACTER HOMINIS Light growth CORYNEBACTERIUM SPECIES Report Status FINAL [facility] 10/18/2018 Specimen Tissue - Flocked Swab Performing Organization Address [facility] Phone Number [facility] [address] [place] [address] * CULTURE-ANAEROBIC (10/15/2018 4:41 PM WATER SERVICE DISPATCHER) Battery Name ANAEROBE CULTURE [facility] Specimen Description FLOCKED SWAB [facility] A RIGHT LEG BELOW THE KNEE STUMP DEEP Special Requests NONE [facility] Culture Moderate growth [facility] PEPTONIPHILUS HAREI Moderate growth GEMELLA MORBILLORUM Report Status FINAL [facility] 10/21/2018 Specimen Tissue - Flocked Swab Performing Organization Address [facility] Phone Number [facility] [address] [place] [address] * POC GLUCOSE (10/15/2018 2:12 PM WATER SERVICE DISPATCHER) Glucose, POC 90 70 - 100 MG/DL [facility] Performing Organization Address [facility]/State/Zipcode Phone Number [facility] [address] [place] [address] * POC GLUCOSE (10/15/2018 2:06 PM WATER SERVICE DISPATCHER) Glucose, POC 91 70 - 100 MG/DL [facility] Performing Organization Address City/State/Zipcode Phone Number [facility] [address] [place] [address] in this encounter Visit Diagnoses Diagnosis Amputation of right lower extremity (HCC) - Primary Penetrating wound Open wound(s) (multiple) of unspecified site(s), without mention of complication Below knee amputation status, right (HCC) in this encounter Admitting Diagnoses Diagnosis Below knee amputation status, right (HCC) in this encounter Administered Medications Action Date Dose Rate Site Medication Order MAR Action acetaminophen (TYLENOL) rectal suppository 650 mg 650 mg, Rectal, EVERY 4 HOURS PRN, Starting Thu10/15/18 at 2011, Until 10/16/18 at 1939, Pain non-opioid: may be used alone or in combination with opioid analgesia, Temp > 38.5 C, Acetaminophen not to exceed 4g per 24 hours from all sources., 10/15/2018 2:51 PM WATER SERVICE DISPATCHER 650 mg acetaminophen (TYLENOL) tablet 650 mg Given 650 mg, Oral, ONCE, 1 dose, Thu10/15/18 at 1500, To be given pre-op with a sip of water immediately upon arrival to [facility] (>30 minutes prior to scheduled surgery time). TOTAL ACETAMINOPHEN DOSE NOT TO EXCEED 4 GM DAILY., Pre-Op acetaminophen (TYLENOL) tablet 650 mg 650 mg, Oral, EVERY 4 HOURS PRN, Starting Thu10/15/18 at 2011, Until 10/16/18 at 1939, Pain non-opioid: may be used alone or in combination with opioid analgesia, Temp > 38.5 C, Acetaminophen not to exceed 4g per 24 hours from all sources., 10/16/2018 6:23 AM WATER SERVICE DISPATCHER 2 puffs albuterol (PROAIR HFA, VENTOLIN HFA, or Given PROVENTIL HFA) inhaler 2 puff 2 puff, Inhalation, RT TWICE DAILY AND PRN, First dose on Thu10/15/18 at 2015, Until Discontinued, When administered by RT, will be per RT policy., albuterol 0.5% (PROVENTIL; VENTOLIN) nebulizer solution 2.5 mg 2.5 mg, Inhalation, RT NEEDED, Starting Thu10/15/18 at 2315, Until 10/16/18 at 1939, RT PROTOCOL, When administered by RT, will be per RT policy., 10/16/2018 8:25 AM WATER SERVICE DISPATCHER 5 mg amLODIPine (NORVASC) tablet 5 mg Given 5 mg, Oral, DAILY, First dose on 10/16/18 at 0900, Until Discontinued, NURSING: Please educate patient and document: Do not give with grapefruit juice., 10/16/2018 8:24 AM WATER SERVICE DISPATCHER 81 mg aspirin EC tablet 81 mg Given 81 mg, Oral, DAILY, First dose on 10/16/18 at 0900, Until Discontinued 10/16/2018 8:25 AM WATER SERVICE DISPATCHER 40 mg atorvastatin (LIPITOR) tablet 40 mg Given 40 mg, Oral, DAILY, First dose on 10/16/18 at 0900, Until Discontinued budesonide/formoterol (SYMBICORT HFA) 160/4.5 mcg inhalation 2 puff 2 puff, Inhalation, RT TWICE DAILY, First dose on Thu10/15/18 at 2130, Until Discontinued, When administered by RT, will be per RT policy., 10/16/2018 5:02 AM WATER SERVICE DISPATCHER 1 g ceFAZolin (ANCEF) IVP 1 g Given 1 g, Intravenous, EVERY 8 HOURS, 2 doses, First dose on Thu10/15/18 at 2100, Last dose on Thu10/16/18 at 0500, First dose: 2100 IV PUSH -- RECONSTITUTE each 1 g vial by adding 10 mL 0.9% NACL, for patient <80 kg, 1 g Given 10/15/2018 8:39 PM WATER SERVICE DISPATCHER 10/16/2018 8:24 AM WATER SERVICE DISPATCHER 10 mg cetirizine (ZYRTEC) tablet 10 mg Given 10 mg, Oral, DAILY, First dose on 10/16/18 at 0900, Until Discontinued 10/16/2018 8:25 AM WATER SERVICE DISPATCHER 10 mg cyclobenzaprine (FLEXERIL) tablet 10 mg Given 10 mg, Oral, DAILY, First dose on 10/16/18 at 0900, Until Discontinued diphenhydrAMINE (BENADRYL) capsule 25 mg 25 mg, Oral, EVERY 6 HOURS PRN, Starting Thu10/15/18 at 2012, Until 10/16/18 at 1939, Insomnia, Itching PO diphenhydrAMINE (BENADRYL) injection 25 mg 25 mg, Intravenous, EVERY 6 HOURS PRN, Starting Thu10/15/18 at 2012, Until 10/16/18 at 1939, Insomnia, Itching Injectable 10/15/2018 6:48 PM WATER SERVICE DISPATCHER 25 mcg fentaNYL citrate PF (SUBLIMAZE) Given injection 25 mcg 25 mcg, Intravenous, EVERY 5 MIN PRN, Starting Thu10/15/18 at 1702, Until Thu10/15/18 at 1852, Pain Injectable, For Pain Score < 4, Maximum total dose of 100 mcg Hold for RR < 10, PACU (only) 25 mcg Given 10/15/2018 6:39 PM WATER SERVICE DISPATCHER 25 mcg Given 10/15/2018 5:45 PM WATER SERVICE DISPATCHER 10/15/2018 2:51 PM WATER SERVICE DISPATCHER 600 mg gabapentin (NEURONTIN) capsule 600 mg Given 600 mg, Oral, ONCE, 1 dose, Thu10/15/18 at 1500, To be given pre-op with a sip of water immediately upon arrival to [facility] (>30 minutes prior to scheduled surgery time)., Pre-Op 10/16/2018 3:19 PM WATER SERVICE DISPATCHER 600 mg gabapentin (NEURONTIN) capsule 600 mg Given 600 mg, Oral, THREE TIMES DAILY, First dose on Thu10/15/18 at 2100, Until Discontinued 600 mg Given 10/16/2018 8:24 AM WATER SERVICE DISPATCHER 600 mg Given 10/15/2018 8:38 PM WATER SERVICE DISPATCHER 10/15/2018 2:51 PM WATER SERVICE DISPATCHER 600 mg ibuprofen (MOTRIN) tablet 600 mg Given 600 mg, Oral, ONCE, 1 dose, Thu10/15/18 at 1500, To be given pre-op with a sip of water immediately upon arrival to [facility] (>30 minutes prior to scheduled surgery time). TOTAL IBUPROFEN DOSE NOT TO EXCEED 3.2 GM PER DAY., Pre-Op insulin aspart U-100 (NOVOLOG FLEXPEN) injection PEN 0-7 Units 0-7 Units, Subcutaneous, BEFORE MEALS AND AT BEDTIME, First dose on Thu10/15/18 at 2130, Until Discontinued, -POC glucose 140-180mg/dL at , , administer 1 unit insulin, at 21, 03* administer 0 units. -POC glucose 181-220mg/dL at , , administer 2 units insulin, at 21, 03* administer 1 unit. -POC glucose 221-260mg/dL at administer 3 units insulin, at , * administer 2 units. -POC glucose 261-300mg/dL at administer 4 units insulin, at , * administer 3 units. -POC glucose 301-350mg/dL at administer 5 units insulin, at , * administer 4 units. -POC glucose 351-400mg/dL at administer 6 units insulin, at , * administer 5 units. -POC glucose >400mg/dL at administer 7 units insulin, at * administer 6 units. *only if ordered 5x's daily For POCT glucose >350mg/dL give correction bolus and recheck POCT glucose in 2 hours. If POCT glucose at 2 hours >300mg/dL call physician for further orders. For patients who are not eating meals, continue to administer the appropriate correction factor. NOTE: This is a HIGH ALERT Medication., Dispense pens manually with initial order and then upon request. DO NOT uncheck "Do not dispense", 10/16/2018 6:24 AM WATER SERVICE DISPATCHER 50 mcg levothyroxine (SYNTHROID) tablet 50 mcg Given 50 mcg, Oral, DAILY 30MIN BEFORE BREAKFAST, First dose on Thu10/16/18 at 0630, Until Discontinued, Give 1 hour before a meal. If patient is receiving tube feedings, hold tube feed 1hr before and 1hr after dose., 10/16/2018 8:24 AM WATER SERVICE DISPATCHER 25 mg metoprolol tartrate (LOPRESSOR) tablet Given 25 mg 25 mg, Oral, TWICE DAILY, First dose on Thu10/15/18 at 2100, Until Discontinued, Hold for systolic BP < 140, 25 mg Given 10/15/2018 8:38 PM WATER SERVICE DISPATCHER 10/15/2018 8:38 PM WATER SERVICE DISPATCHER 10 mg montelukast (SINGULAIR) tablet 10 mg Given 10 mg, Oral, AT BEDTIME DAILY, First dose on Thu10/15/18 at 2100, Until Discontinued 10/15/2018 5:28 PM WATER SERVICE DISPATCHER 10 mg oxyCODONE (ROXICODONE, OXY-IR) tablet Given 5-10 mg 5-10 mg, Oral, ONCE PRN, 1 dose, Starting Thu10/15/18 at 1702, Until Thu10/15/18 at 1728, Pain PO, For Pain Score <4, PACU (only) 10/16/2018 3:19 PM WATER SERVICE DISPATCHER 15 mg oxyCODONE (ROXICODONE, OXY-IR) tablet Given 5-15 mg 5-15 mg, Oral, EVERY 3 HOURS PRN, Starting Thu10/15/18 at 2012, Until 10/16/18 at 1939, Pain PO 15 mg Given 10/16/2018 11:43 AM WATER SERVICE DISPATCHER 15 mg Given 10/16/2018 8:29 AM WATER SERVICE DISPATCHER 10/16/2018 8:24 AM WATER SERVICE DISPATCHER [address] (PROTONIX) tablet 40 mg Given 40 mg, Oral, DAILY, First dose on 10/16/18 at 0900, Until Discontinued, Do not crush or chew tablet., 10/16/2018 6:25 AM WATER SERVICE DISPATCHER 1 capsule tiotropium (SPIRIVA) capsule for inhaler Given 1 capsule 1 capsule, Inhalation, RT DAILY, First dose on 10/16/18 at 0600, Until Discontinued, When administered by RT, will be per RT policy. NOTES: Administer immediately after opening blister foil pouch. Each capsule is meant to deliver 2 inhalations (1 cap=2 inhalations)., 10/15/2018 8:39 PM WATER SERVICE DISPATCHER 100 mg traZODone (DESYREL) tablet 100 mg Given 100 mg, Oral, AT BEDTIME DAILY, First dose on Thu10/15/18 at 2100, Until Discontinued in this encounter
--- OUTSIDE RECORDS SUMMARY | 2018-11-26 15:35 | XMS REPORT | Encounter Summary ---
Author Author [facility] Organization [facility] Address Unknown Phone Unavailable Care Team Providers Care Hoisting Engineer Pile D[employer] Name Role Phone SarbjitOsvaldo madden Unavailable Hermila Durbin MD Unavailable Rishi Cartwright MD Unavailable Donell Haque PA-C Unavailable Lizet Parsons RN Unavailable Unavailable Kristofer Dowling MD Unavailable Unavailable Harvinder Jj MD PCP Slade Merino DO 4 Encounter Details Care Team Description Date Type Department Pradip Jaramillo MD [address] [facility] [address] [place] [address] Other injury of unspecified body region, initial encounter 09/16/2018 [facility] [address] [place] [address] Social History Date Tobacco Use Types Packs/Day [...] 10 mg tablet mouth at bedtime daily. 06/23/2018 naproxen (NAPROSYN) 500 Take 500 mg [...] mg tablet by mouth at bedtime daily. 08/24/2018 09/23/2018 acetaminophen (TYLENOL) Take two 180 tablet 0 500 mg tablet tablets by mouth every 8 hours for 30 days. Max of 4,000 mg of acetaminophen in 24 hours. 09/16/2018 10/26/2018 HYDROcodone/acetaminophen Take one 50 tablet 0 (+) (NORCO) 10/325 mg tablet to two tablet tablets by mouth every 4 hours as needed for Pain Earliest Fill Date: 09/16/18 Max 8 tabs/day 09/16/2018 09/21/2018 mupirocin (BACTROBAN) 2 % Apply 22 g 0 topical ointment topically to affected area three times daily. 09/02/2018 10/15/2018 oxyCODONE (ROXICODONE, Take one 60 tablet 0 OXY-IR) 5 mg tablet tablet to two tablets by mouth every 3 hours as needed 09/16/2018 09/26/2018 trimethoprim/sulfamethoxa Take one 20 tablet 0 zole (BACTRIM DS) 160/800 tablet by mg tablet mouth twice daily for 10 days. as of this encounter Plan of Treatment Not on fileas of this encounter Procedures Comments Procedure Name Priority Date/Time Associated Diagnosis CULTURE-FUNGAL,OTHER Routine 09/16/2018 Wound drainage 1:24 PM CDT CULTURE-WOUND/TISSUE/FLUI Routine 09/16/2018 Wound drainage D(AEROBIC 1:24 PM CDT ONLY)W/SENSITIVITY CULTURE-ANAEROBIC Routine 09/16/2018 Wound drainage 1:24 PM CDT in this encounter Results * CULTURE-WOUND/TISSUE/FLUID(AEROBIC ONLY)W/SENSITIVITY (09/16/2018 1:24 PM CDT ) Battery Name ROUTINE CULTURE [facility] Specimen Description SWAB [facility] RIGHT BKA Special Requests NONE [facility] Culture Moderate growth [facility] STAPHYLOCOCCUS, COAGULASE NEGATIVE Report Status FINAL [facility] 09/18/2018 Specimen Swab Performing Organization Address [facility] Phone Number MAIN LAB [address] [place] [address] * CULTURE-FUNGAL,OTHER (09/16/2018 1:24 PM CDT) Battery Name FUNGUS CULTURE [facility] Specimen Description SWAB [facility] RIGHT BKA Special Requests NONE [facility] Culture NO GROWTH OF FUNGUS AT 4 WEEKS [facility] Report Status FINAL MAIN LAB 10/18/2018 Specimen Swab Performing Organization Address [facility] Phone Number MAIN LAB [address] [place] [address] * CULTURE-ANAEROBIC (09/16/2018 1:24 PM CDT) Battery Name ANAEROBE CULTURE [facility] Specimen Description SWAB MAIN LAB RIGHT BKA Special Requests NONE [facility] Culture NO ANAEROBES ISOLATED [facility] Report Status FINAL [facility]IN LAB 09/21/2018 Specimen Swab Performing Organization Address [facility] Phone Number MAIN LAB [address] [place] [address] in this encounter Visit Diagnoses Diagnosis Wound drainage Open wound(s) (multiple) of unspecified site(s), without mention of complication in this encounter
--- OUTSIDE RECORDS SUMMARY | 2018-11-26 15:35 | XMS REPORT | Encounter Summary ---
Author Author [facility] Organization [facility] Address Unknown Phone Unavailable Care Team Providers Care County Judge Name Role Phone Osvaldo Palafox DO Unavailable Hermila Durbin MD Unavailable Rishi Cartwright MD Unavailable Dnoell Haque PA-C Unavailable Lizet Parsons RN Unavailable Unavailable Kristofer Dowling MD Unavailable Unavailable Harvinder Jj MD PCP Slade Merino DO 4 Reason for Visit * Auth/Cert Referred By Contact Referred To Contact Status Reason Specialty Diagnoses / Procedures Diagnoses Penetrating wound Penetrating wound [T14.8XXA] P rocedures [place] INCISION & DRAINAGE COMPLEX PO WOUND INFECTION [place] NEGATIVE PRESSURE WOUND THERAPY DME </=50 SQ CM IL INCISION & DRAINAGE COMPLEX PO WOUND INFECTION [place] NEGATIVE PRESSURE WOUND THERAPY DME </=50 SQ CM INCISION AND DRAINAGE POSTOPERATIVE WOUND INFECTION RIGHT BELOW THE KNEE AMPUTATION STUMP APPLICATION NEGATIVE PRESSURE WOUND THERAPY Encounter Details Care Team Description Date Type Department Lucius Guerra CRNA [address] [place] [address] 10/15/2018 Anesthesia Main Operating Room Event [facility] [address] fl [address] [place] [address] Anesthesia Record Responsible Anesthesiologist Anesthesia Start Time Anesthesia Stop Time Procedure Name Giovanny Pascual MD 10/15/18 1556 10/15/18 1708 INCISION AND DRAINAGE POSTOPERATIVE WOUND INFECTION RIGHT BELOW THE KNEE AMPUTATION STUMP WITH APPLICATION OF WOUND VAC (Right Leg Lower) Date Time Event Comment 1537 1546 AN Equip Check 1555 Out of Pre Procedure 1556 Anes Start 1556 An Start Data 1556 In Room 1600 An Induction The patient was reevaluated immediately before moderate or deep sedation use and before anesthesia induction. 1610 An Induction The patient was reevaluated immediately before moderate or deep sedation use and before anesthesia induction. 1612 An Intubation 1615 Anesthesia Ready 1617 An Tourn Inflated 1618 Proc Start 1639 An Tourn Deflated 1707 An Extubation 1708 an stop data 1708 Handoff to RN I completed my SBAR handoff to the receiving nurse. 1708 An Stop Meds Name Total ropivacaine (PF) 0.5% (NAROPIN) 30 mL injection dexamethasone (DECADRON) 4 mg/mL 4 mg injection fentaNYL PF (SUBLIMAZE) injection 50 mcg lidocaine (2%) 200 mg/10mL Injection 100 mg syringe propofol (DIPRIVAN) 200 mg/ 20 mL 170 mg injection (VIAL) ondansetron (ZOFRAN) injection 4 mg phenylephrine (FALLON-SYNEPHRINE) 0.1 mg/mL 1,000 mcg injection (SYRINGE) dextran 70/hypromellose (GENTEAL TEARS; 2 drop BION TEARS) ophthalmic solution ceFAZolin (ANCEF) injection 2 g lactated ringers infusion 1,000 mL * Name O2 N2O Inspired N2O Sevoflurane Inspired Sevoflurane * No blood administrations on file. Removal Type Details Placement Wounds 09/16/16; 1145; Perineum; Surgical 09/16/16 1145 by Sommer, (NOT for Incision GIOVANI Malik Pressure Injuries) Wounds 03/17/17; 0939; Vagina; Surgical 03/17/17 0939 by Bhargav, (NOT for Incision; NONE GIOVANI Jang Pressure Injuries) Wounds 08/20/18; 0913; Lower, Right; Leg; 08/20/18 0913 by Srinivas, (NOT for Surgical Incision; GIOVANI Eduardo Pressure SUTURE,DERMABOND,BETADINE ADAPTIC, 4X4S, Injuries) POST-OP SOCK, COBAN Negative 10/15/18; Right; Leg 10/15/18 0000 by Pressure Rosaura Sanchez, GIOVANI Therapy Drain Wounds 10/15/18; 1711; Leg; Surgical Incision; 10/15/18 1711 by (NOT for WOUND VAC APPLIED, SOFTROLL,Rosaura Vasquez RN Pressure Injuries) 10/16/18 1330 by Laine Kaiser RN Peripheral 10/15/18; 1418; RN; L; Lower; Forearm; 10/15/18 1418 by Piyush, IV 20 G; 10/16/18; 1330 GIOVANI Bender 10/15/18 1707 by Porter Duncan SRNA Supraglott 10/15/18; 1612; Ventilated by mask (1); 10/15/18 1612 by grace Guerra Airway Unique; 4; 1 insertion attempt; BARTOLO Kan Auscultation, End-tidal CO2; 10/15/18; 1707 in this encounter Social History Date Tobacco Use Types Packs/Day [...] cognitive impairment: No as of this encounter Plan of Treatment Not on fileas of this encounter Results * ANESTHESIA PERIPHERAL NERVE BLOCK (10/15/2018 3:24 PM TABLEAU ARCHITECT) Narrative Performed At Mert Choi MD 10/18/20187:31 [...] Mert Choi MD - 10/15/2018 3:24 PM TABLEAU ARCHITECT Anesthesia Procedure: Peripheral Nerve Block PERIPHERAL NERVE [...] by: HOME MARTIN Authorized by: MERT CHOI in this encounter Visit Diagnoses Not on filein this encounter Administered Medications Action Date Dose Rate Site Medication Order MAR Action 10/15/2018 4:39 PM TABLEAU ARCHITECT 2 g ceFAZolin (ANCEF) injection Given INTRA-PROCEDURE MED, Starting Thu10/15/18 at 1639, Until Thu10/15/18 at 1708, Anesthesia Intra-op 10/15/2018 3:15 PM TABLEAU ARCHITECT 4 mg dexamethasone (DECADRON) injection Given INTRA-PROCEDURE MED, Starting Thu10/15/18 at 1515, Until Thu10/15/18 at 1708, Nausea/Vomiting Injectable, Anesthesia Intra-op 10/15/2018 4:14 PM TABLEAU ARCHITECT 2 drops dextran 70/hypromellose (GENTEAL TEARS; Given BION TEARS) ophthalmic solution INTRA-PROCEDURE MED, Starting Thu10/15/18 at 1614, Until Thu10/15/18 at 1708, Dry Eyes, Anesthesia Intra-op 10/15/2018 4:24 PM TABLEAU ARCHITECT 25 mcg fentaNYL citrate PF (SUBLIMAZE) Given injection INTRA-PROCEDURE MED, Starting Thu10/15/18 at 1619, Until Thu10/15/18 at 1708, Pain Injectable, Anesthesia Intra-op 25 mcg Given 10/15/2018 4:19 PM TABLEAU ARCHITECT 10/15/2018 4:57 PM TABLEAU ARCHITECT lactated ringers infusion Given - New 1,000 mL, 1,000 mL, Intravenous, at 20 Bag mL/hr, CONTINUOUS, Starting Thu10/15/18 at 1345, Until Thu10/15/18 at 1852, Pre-Op Given - New Bag 10/15/2018 3:47 PM TABLEAU ARCHITECT 10/15/2018 4:10 PM TABLEAU ARCHITECT 100 mg lidocaine (PF) injection Given INTRA-PROCEDURE MED, Starting Thu10/15/18 at 1610, Until Thu10/15/18 at 1708, Anesthesia Intra-op 10/15/2018 4:40 PM TABLEAU ARCHITECT 4 mg ondansetron (ZOFRAN) injection Given Intravenous, INTRA-PROCEDURE MED, Starting Thu10/15/18 at 1640, Until Thu10/15/18 at 1708, Nausea/Vomiting Injectable, Anesthesia Intra-op 10/15/2018 5:05 PM TABLEAU ARCHITECT 100 mcg phenylephrine in NS injection syringe Given Intravenous, INTRA-PROCEDURE MED, Starting Thu10/15/18 at 1627, Until Thu10/15/18 at 1708, Symptomatic Hypotension, Anesthesia Intra-op 100 mcg Given 10/15/2018 5:02 PM TABLEAU ARCHITECT 200 mcg Given 10/15/2018 4:56 PM TABLEAU ARCHITECT 10/15/2018 4:14 PM TABLEAU ARCHITECT 20 mg propofol (DIPRIVAN) injection Given INTRA-PROCEDURE MED, Starting Thu10/15/18 at 1610, Until Thu10/15/18 at 1708, Anesthesia Intra-op 150 mg Given 10/15/2018 4:10 PM TABLEAU ARCHITECT 10/15/2018 3:15 PM TABLEAU ARCHITECT 30 mL ropivacaine (PF) (NAROPIN) 0.5% (5 Given mg/mL) injection INTRA-PROCEDURE MED, Starting Thu10/15/18 at 1515, Until Thu10/15/18 at 1708, Anesthesia Intra-op in this encounter
--- OUTSIDE RECORDS SUMMARY | 2018-11-26 15:35 | XMS REPORT | Encounter Summary ---
Author Author [facility] Organization [facility] Address Unknown Phone Unavailable Care Team Providers Care Accounts Specialist Name Role Phone SarbjitOsvaldo madden Unavailable Hermila Durbin MD Unavailable Rishi Cartwright MD Unavailable Donell Haque PA-C Unavailable Lizet Parsons RN Unavailable Unavailable Kristofer Dowling MD Unavailable Unavailable Harvinder Jj MD PCP Slade Merino DO 4 Reason for Visit * Reason Comments Medication Refill Encounter Details Care Team Description Date Type Department Pradip Jaramillo MD [address] [facility] [address] [place] [address] 09/21/2018 Refill [facility] [address] [place] [address] Social History Date Tobacco Use [...]
--- OUTSIDE RECORDS SUMMARY | 2018-11-26 15:35 | XMS REPORT | Encounter Summary ---
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 Name Role Phone Osvaldo Palafox DO Unavailable Hermila Durbin MD Unavailable Rishi Cartwright MD Unavailable Donell Haque PA-C Unavailable Lizet Parsons RN Unavailable Unavailable Kristofer Dowling MD Unavailable Unavailable Harvinder Jj MD PCP Slade Merino DO 4 Reason for Visit * Auth/Cert Referred By Contact Referred To Contact Status Reason Specialty Diagnoses / Procedures Diagnoses Penetrating wound Penetrating wound [T14.8XXA] P rocedures CT INCISION & DRAINAGE COMPLEX PO WOUND INFECTION CT NEGATIVE PRESSURE WOUND THERAPY DME </=[address] INCISION & DRAINAGE COMPLEX PO WOUND INFECTION CT NEGATIVE PRESSURE WOUND THERAPY DME </=50 SQ CM INCISION AND DRAINAGE POSTOPERATIVE WOUND INFECTION RIGHT BELOW THE KNEE AMPUTATION STUMP APPLICATION NEGATIVE PRESSURE WOUND THERAPY Encounter Details Care Team Description Date Type Department Pradip Jaramillo MD [address] [facility] [address] [place] [address] INCISION AND DRAINAGE POSTOPERATIVE WOUND INFECTION RIGHT BELOW THE KNEE AMPUTATION STUMP WITH APPLICATION OF WOUND VAC 10/15/2018 Surgery Main Operating Room [facility] 2nd fl [address] [place], [place] [id number] Social History Date Tobacco Use Types Packs/Day [...] Taken Vital Sign Reading 10/16/2018 3:00 PM OPERATIONAL RISK CONSULTANT Blood Pressure 107/64 10/16/2018 3:00 PM OPERATIONAL RISK CONSULTANT Pulse 59 10/16/2018 3:00 PM OPERATIONAL RISK CONSULTANT Temperature 37.1 C (98.7 F) - Respiratory Rate - 10/16/2018 3:00 PM OPERATIONAL RISK CONSULTANT Oxygen Saturation 92% - Inhaled Oxygen - Concentration 10/15/2018 8:22 PM OPERATIONAL RISK CONSULTANT Weight 83.8 kg (184 lb 11.9 oz) 10/15/2018 8:22 PM OPERATIONAL RISK CONSULTANT Height 170.2 cm (5' 7") 10/15/2018 8:22 PM OPERATIONAL RISK CONSULTANT Body Mass Index 28.94 in this encounter [...] as of this encounter Plan of Treatment Date/Time Name Priority Associated Diagnoses 10/15/2018 2:39 PM OPERATIONAL RISK CONSULTANT POC ANES US GUIDED NERVE BLOCK Routine Order Schedule Name Priority Associated Diagnoses ONE TIME for 1 Occurrences starting 10/15/2018 until 10/15/2018 POC ANES US GUIDED NERVE BLOCK Routine Ordered: 10/15/2018 NEGATIVE PRESSURE THERAPY DRAIN - Routine 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) as of this encounter Procedures Comments Procedure Name Priority Date/Time Associated Diagnosis TELEMETRY STRIPS-SCAN 10/18/2018 8:08 AM OPERATIONAL RISK CONSULTANT POC GLUCOSE 10/16/2018 3:54 PM OPERATIONAL RISK CONSULTANT POC GLUCOSE 10/16/2018 11:33 AM OPERATIONAL RISK CONSULTANT POC GLUCOSE 10/16/2018 7:23 AM OPERATIONAL RISK CONSULTANT CBC Routine 10/16/2018 4:42 AM OPERATIONAL RISK CONSULTANT BASIC METABOLIC PANEL Routine 10/16/2018 4:42 AM OPERATIONAL RISK CONSULTANT POC GLUCOSE 10/15/2018 8:18 PM OPERATIONAL RISK CONSULTANT POC GLUCOSE 10/15/2018 5:13 PM OPERATIONAL RISK CONSULTANT CULTURE-FUNGAL,OTHER STAT 10/15/2018 Penetrating wound 4:49 PM OPERATIONAL RISK CONSULTANT GRAM STAIN STAT 10/15/2018 Penetrating wound 4:49 PM OPERATIONAL RISK CONSULTANT CULTURE-WOUND/TISSUE/FLUI STAT 10/15/2018 Penetrating wound D(AEROBIC 4:49 PM OPERATIONAL RISK CONSULTANT ONLY)W/SENSITIVITY CULTURE-ANAEROBIC STAT 10/15/2018 Penetrating wound 4:49 PM OPERATIONAL RISK CONSULTANT CULTURE-FUNGAL,OTHER STAT 10/15/2018 Penetrating wound 4:48 PM OPERATIONAL RISK CONSULTANT GRAM STAIN STAT 10/15/2018 Penetrating wound 4:48 PM OPERATIONAL RISK CONSULTANT CULTURE-WOUND/TISSUE/FLUI STAT 10/15/2018 Penetrating wound D(AEROBIC 4:48 PM OPERATIONAL RISK CONSULTANT ONLY)W/SENSITIVITY CULTURE-ANAEROBIC STAT 10/15/2018 Penetrating wound 4:48 PM OPERATIONAL RISK CONSULTANT CULTURE-FUNGAL,OTHER STAT 10/15/2018 Penetrating wound 4:41 PM OPERATIONAL RISK CONSULTANT GRAM STAIN STAT 10/15/2018 Penetrating wound 4:41 PM OPERATIONAL RISK CONSULTANT CULTURE-WOUND/TISSUE/FLUI STAT 10/15/2018 Penetrating wound D(AEROBIC 4:41 PM OPERATIONAL RISK CONSULTANT ONLY)W/SENSITIVITY CULTURE-ANAEROBIC STAT 10/15/2018 Penetrating wound 4:41 PM OPERATIONAL RISK CONSULTANT POC GLUCOSE 10/15/2018 2:12 PM OPERATIONAL RISK CONSULTANT POC GLUCOSE 10/15/2018 2:06 PM OPERATIONAL RISK CONSULTANT INCISION AND DRAINAGE 10/15/2018 Penetrating wound POSTOPERATIVE WOUND 2:00 PM OPERATIONAL RISK CONSULTANT INFECTION - COMPLEX in this encounter Results * TELEMETRY STRIPS-SCAN (10/18/2018 8:08 AM OPERATIONAL RISK CONSULTANT) Narrative Performed At Ordered by an unspecified provider. * POC GLUCOSE (10/16/2018 3:54 PM OPERATIONAL RISK CONSULTANT) Glucose, POC 115 (H) 70 - 100 MG/DL [facility] Performing Organization Address [facility] Phone Number [facility] [address] [place] [address] * POC GLUCOSE (10/16/2018 11:33 AM OPERATIONAL RISK CONSULTANT) Glucose, POC 125 (H) 70 - 100 MG/DL [facility] Performing Organization Address [facility] Phone Number [facility] [address] [place] [address] * POC GLUCOSE (10/16/2018 7:23 AM OPERATIONAL RISK CONSULTANT) Glucose, POC 106 (H) 70 - 100 MG/DL [facility] Performing Organization Address City/[facility]/Zipcode Phone Number [facility] [address] [place] [address] * BASIC METABOLIC PANEL (10/16/2018 4:42 AM OPERATIONAL RISK CONSULTANT) Sodium 140 137 - 147 MMOL/L [facility] [...] for questions. Specimen Blood Performing Organization Address City/[facility]/Zipcode Phone Number MAIN LAB [address] [place] [address] * CBC (10/16/2018 4:42 AM OPERATIONAL RISK CONSULTANT) White Blood Cells 5.3 4.5 - 11.0 [...] MAIN LAB Specimen Blood Performing Organization Address City/[facility]/Zipcode Phone Number MAIN LAB [address] [place] [address] * POC GLUCOSE (10/15/2018 8:18 PM OPERATIONAL RISK CONSULTANT) Glucose, POC 119 (H) 70 - 100 MG/DL [facility] Performing Organization Address [facility] Phone Number [facility] [address] [place] [address] * POC GLUCOSE (10/15/2018 5:13 PM OPERATIONAL RISK CONSULTANT) Glucose, POC 86 70 - 100 MG/DL [facility] Performing Organization Address [facility] Phone Number [facility] [address] [place] [address] * CULTURE-FUNGAL,OTHER (10/15/2018 4:49 PM OPERATIONAL RISK CONSULTANT) Battery Name FUNGUS CULTURE [facility] Specimen Description TISSUE [facility] LEG SUPERFICIAL WOUND DEHISCENCE Special Requests NONE [facility] Culture NO GROWTH OF FUNGUS AT 4 WEEKS [facility] Report Status FINAL [facility] 11/15/2018 Specimen Tissue - Tissue Performing Organization Address [facility] Phone Number [facility] [address] [place] [address] * GRAM STAIN (10/15/2018 4:49 PM OPERATIONAL RISK CONSULTANT) Battery Name GRAM STAIN [facility] Specimen Description TISSUE [facility] LEG SUPERFICIAL WOUND DEHISCENCE Special Requests NONE [facility] Gram Stain FEW [facility] NEUTROPHILS MANY GRAM POSITIVE COCCI MANY GRAM POSITIVE RODS RESEMBLING DIPHTHEROIDS Report Status FINAL [facility] 10/16/2018 Specimen Tissue - Tissue Performing Organization Address [facility] Phone Number [facility] [address] [place] [address] * CULTURE-WOUND/TISSUE/FLUID(AEROBIC ONLY)W/SENSITIVITY (10/15/2018 4:49 PM OPERATIONAL RISK CONSULTANT ) Battery Name ROUTINE CULTURE [facility] [...] Specimen Tissue - Tissue Performing Organization Address [facility] Phone Number [facility] [address] [place] [address] * CULTURE-ANAEROBIC (10/15/2018 4:49 PM OPERATIONAL RISK CONSULTANT) Battery Name ANAEROBE CULTURE [facility] Specimen Description TISSUE [facility] LEG SUPERFICIAL WOUND DEHISCENCE Special Requests NONE [facility] Culture Heavy growth [facility] PEPTONIPHILUS HAREI Heavy growth GEMELLA MORBILLORUM Report Status FINAL [facility] 10/21/2018 Specimen Tissue - Tissue Performing Organization Address [facility] Phone Number [facility] [address] [place] [address] * CULTURE-FUNGAL,OTHER (10/15/2018 4:48 PM OPERATIONAL RISK CONSULTANT) Battery Name FUNGUS CULTURE [facility] Specimen Description FLOCKED SWAB [facility] B RIGHT LEG BELOW THE KNEE STUMP DEEP Special Requests NONE [facility] Culture NO GROWTH OF FUNGUS AT 4 WEEKS [facility] Report Status FINAL [facility] 11/15/2018 Specimen Tissue - Flocked Swab Performing Organization Address [facility] Phone Number [facility] [address] [place] [address] * GRAM STAIN (10/15/2018 4:48 PM OPERATIONAL RISK CONSULTANT) Battery Name GRAM STAIN [facility] Specimen Description FLOCKED SWAB [facility] B RIGHT LEG BELOW THE KNEE STUMP DEEP Special Requests NONE [facility] Gram Stain NO NEUTROPHILS SEEN [facility] MODERATE GRAM POSITIVE COCCI FEW GRAM POSITIVE RODS Report Status FINAL [facility] 10/16/2018 Specimen Tissue - Flocked Swab Performing Organization Address [facility] Phone Number [facility] [address] [place] [address] * CULTURE-WOUND/TISSUE/FLUID(AEROBIC ONLY)W/SENSITIVITY (10/15/2018 4:48 PM OPERATIONAL RISK CONSULTANT ) Battery Name ROUTINE CULTURE [facility] MA[facility] [...] Tissue - Flocked Swab Performing Organization Address [facility] Phone Number MAIN LAB [address] [place] [address] * CULTURE-ANAEROBIC (10/15/2018 4:48 PM OPERATIONAL RISK CONSULTANT) Battery Name ANAEROBE CULTURE [facility] Specimen Description FLOCKED SWAB [facility] B RIGHT LEG BELOW THE KNEE STUMP DEEP Special Requests NONE [facility] Culture Moderate growth [facility] PEPTONIPHILUS HAREI Moderate growth GEMELLA MORBILLORUM Report Status FINAL [facility] 10/21/2018 Specimen Tissue - Flocked Swab Performing Organization Address [facility] Phone Number [facility] [address] [place] [address] * CULTURE-FUNGAL,OTHER (10/15/2018 4:41 PM OPERATIONAL RISK CONSULTANT) Battery Name FUNGUS CULTURE [facility] Specimen Description FLOCKED SWAB [facility] A RIGHT LEG BELOW THE KNEE STUMP DEEP Special Requests NONE [facility] Culture NO GROWTH OF FUNGUS AT 4 WEEKS [facility] Report Status FINAL [facility] 11/15/2018 Specimen Tissue - Flocked Swab Performing Organization Address [facility] Phone Number [facility] [address] [place] [address] * GRAM STAIN (10/15/2018 4:41 PM OPERATIONAL RISK CONSULTANT) Battery Name GRAM STAIN [facility] Specimen Description FLOCKED SWAB [facility] A RIGHT LEG BELOW THE KNEE STUMP DEEP Special Requests NONE [facility] Gram Stain NO NEUTROPHILS SEEN [facility] FEW GRAM POSITIVE COCCI Report Status FINAL [facility] 10/16/2018 Specimen Tissue - Flocked Swab Performing Organization Address [facility] Phone Number [facility] [address] [place] [address] * CULTURE-WOUND/TISSUE/FLUID(AEROBIC ONLY)W/SENSITIVITY (10/15/2018 4:41 PM OPERATIONAL RISK CONSULTANT ) Battery Name ROUTINE CULTURE [facility] MAIN [...] Tissue - Flocked Swab Performing Organization Address [facility] Phone Number [facility] [address] [place] [address] * CULTURE-ANAEROBIC (10/15/2018 4:41 PM OPERATIONAL RISK CONSULTANT) Battery Name ANAEROBE CULTURE [facility] Specimen Description FLOCKED SWAB [facility] A RIGHT LEG BELOW THE KNEE STUMP DEEP Special Requests NONE [facility] Culture Moderate growth [facility] PEPTONIPHILUS HAREI Moderate growth GEMELLA MORBILLORUM Report Status FINAL [facility] 10/21/2018 Specimen Tissue - Flocked Swab Performing Organization Address [facility] Phone Number [facility] [address] [place] [address] * POC GLUCOSE (10/15/2018 2:12 PM OPERATIONAL RISK CONSULTANT) Glucose, POC 90 70 - 100 MG/DL [facility] Performing Organization Address [facility] Phone Number [facility] [address] [place] [address] * POC GLUCOSE (10/15/2018 2:06 PM OPERATIONAL RISK CONSULTANT) Glucose, POC 91 70 - 100 MG/DL [facility] Performing Organization Address [facility] Phone Number MAIN LAB [address] [place] [address] in this encounter Visit Diagnoses Diagnosis Penetrating wound Open wound(s) (multiple) of unspecified site(s), without mention of complication in this encounter Admitting Diagnoses Diagnosis Below [...] hours from all sources., 10/15/2018 2:51 PM OPERATIONAL RISK CONSULTANT 650 mg acetaminophen (TYLENOL) tablet 650 mg Given 650 mg, Oral, ONCE, 1 dose, Thu10/15/18 at 1500, To be given pre-op with a sip of water immediately upon arrival to [place] (>30 minutes prior to scheduled surgery time). [...] hours from all sources., 10/16/2018 6:23 AM OPERATIONAL RISK CONSULTANT 2 puffs albuterol (PROAIR HFA, VENTOLIN HFA, or Given PROVENTIL HFA) inhaler 2 puff 2 puff, Inhalation, RT TWICE DAILY AND PRN, First dose on Thu10/15/18 at 2015, Until Discontinued, When administered by RT, will be per RT policy., albuterol 0.5% (PROVENTIL; VENTOLIN) nebulizer solution 2.5 mg 2.5 mg, Inhalation, RT NEEDED, Starting Thu10/15/18 at 2315, Until Thu10/16/18 at 1939, RT PROTOCOL, When administered by RT, will be per RT policy., 10/16/2018 8:25 AM OPERATIONAL RISK CONSULTANT 5 mg amLODIPine (NORVASC) tablet 5 mg Given 5 mg, Oral, DAILY, First dose on Thu10/16/18 at 0900, Until Discontinued, NURSING: Please educate patient and document: Do not give with grapefruit juice., 10/16/2018 8:24 AM OPERATIONAL RISK CONSULTANT 81 mg aspirin EC tablet 81 mg Given 81 mg, Oral, DAILY, First dose on Thu10/16/18 at 0900, Until Discontinued 10/16/2018 8:25 AM OPERATIONAL RISK CONSULTANT 40 mg atorvastatin (LIPITOR) tablet 40 mg Given 40 mg, Oral, DAILY, First dose on Thu10/16/18 at 0900, Until Discontinued budesonide/formoterol (SYMBICORT HFA) 160/4.5 mcg inhalation 2 puff 2 puff, Inhalation, RT TWICE DAILY, First dose on Thu10/15/18 at 2130, Until Discontinued, When administered by RT, will be per RT policy., 10/16/2018 5:02 AM OPERATIONAL RISK CONSULTANT 1 g ceFAZolin (ANCEF) IVP 1 g Given 1 g, Intravenous, EVERY 8 HOURS, 2 doses, First dose on Thu10/15/18 at 2100, Last dose on Thu10/16/18 at 0500, First dose: 2100 IV PUSH -- RECONSTITUTE each 1 g vial by adding 10 mL 0.9% NACL, for patient <80 kg, 1 g Given 10/15/2018 8:39 PM OPERATIONAL RISK CONSULTANT 10/16/2018 8:24 AM OPERATIONAL RISK CONSULTANT 10 mg cetirizine (ZYRTEC) tablet 10 mg Given 10 mg, Oral, DAILY, First dose on Thu10/16/18 at 0900, Until Discontinued 10/16/2018 8:25 AM OPERATIONAL RISK CONSULTANT 10 mg cyclobenzaprine (FLEXERIL) tablet 10 mg Given 10 mg, Oral, DAILY, First dose on Thu10/16/18 at 0900, Until Discontinued diphenhydrAMINE (BENADRYL) capsule 25 mg 25 mg, Oral, EVERY 6 HOURS PRN, Starting Thu10/15/18 at 2012, Until Thu10/16/18 at 1939, Insomnia, Itching PO diphenhydrAMINE (BENADRYL) injection 25 mg 25 mg, Intravenous, EVERY 6 HOURS PRN, Starting Thu10/15/18 at 2011, Until Thu10/16/18 at 1939, Insomnia, Itching Injectable 10/15/2018 6:48 PM OPERATIONAL RISK CONSULTANT 25 mcg fentaNYL citrate PF (SUBLIMAZE) Given injection 25 mcg 25 mcg, Intravenous, EVERY 5 MIN PRN, Starting Thu10/15/18 at 1702, Until Thu10/15/18 at 1852, Pain Injectable, For Pain Score < 4, Maximum total dose of 100 mcg Hold for RR < 10, PACU (only) 25 mcg Given 10/15/2018 6:39 PM OPERATIONAL RISK CONSULTANT 25 mcg Given 10/15/2018 5:45 PM OPERATIONAL RISK CONSULTANT 10/15/2018 2:51 PM OPERATIONAL RISK CONSULTANT 600 mg gabapentin (NEURONTIN) capsule 600 mg Given 600 mg, Oral, ONCE, 1 dose, Thu10/15/18 at 1500, To be given pre-op with a sip of water immediately upon arrival to [place] (>30 minutes prior to scheduled surgery time)., Pre-Op 10/16/2018 3:19 PM OPERATIONAL RISK CONSULTANT 600 mg gabapentin (NEURONTIN) capsule 600 mg Given 600 mg, Oral, THREE TIMES DAILY, First dose on Thu10/15/18 at 2100, Until Discontinued 600 mg Given 10/16/2018 8:24 AM OPERATIONAL RISK CONSULTANT 600 mg Given 10/15/2018 8:38 PM OPERATIONAL RISK CONSULTANT 10/15/2018 2:51 PM OPERATIONAL RISK CONSULTANT 600 mg ibuprofen (MOTRIN) tablet 600 mg Given 600 mg, Oral, ONCE, 1 dose, Thu10/15/18 at 1500, To be given pre-op with a sip of water immediately upon arrival to [place] (>30 minutes prior to scheduled surgery time). TOTAL IBUPROFEN DOSE NOT TO EXCEED 3.2 GM PER DAY., Pre-Op insulin aspart U-100 (NOVOLOG FLEXPEN) injection PEN 0-7 Units 0-7 Units, Subcutaneous, BEFORE MEALS AND AT BEDTIME, First dose on Thu10/15/18 at 2130, Until Discontinued, -POC glucose 140-180mg/dL at administer 1 unit insulin, at , 03* administer 0 units. -POC glucose 181-220mg/dL at administer 2 units insulin, at , * administer 1 unit. -POC glucose 221-260mg/dL at [...] >400mg/dL at administer 7 units insulin, at , * administer 6 units. *only if ordered [...] uncheck "Do not dispense", 10/16/2018 6:24 AM OPERATIONAL RISK CONSULTANT 50 mcg levothyroxine (SYNTHROID) tablet 50 mcg Given 50 mcg, Oral, DAILY 30MIN BEFORE BREAKFAST, First dose on Thu10/16/18 at 0630, Until Discontinued, Give 1 hour before a meal. If patient is receiving tube feedings, hold tube feed 1hr before and 1hr after dose., 10/16/2018 8:24 AM OPERATIONAL RISK CONSULTANT 25 mg metoprolol tartrate (LOPRESSOR) tablet Given 25 mg 25 mg, Oral, TWICE DAILY, First dose on 11/16/18 at 2100, Until Discontinued, Hold for systolic BP < 140, 25 mg Given 10/15/2018 8:38 PM OPERATIONAL RISK CONSULTANT 10/15/2018 8:38 PM OPERATIONAL RISK CONSULTANT 10 mg montelukast (SINGULAIR) tablet 10 mg Given 10 mg, Oral, AT BEDTIME DAILY, First dose on Thu10/15/18 at 2100, Until Discontinued 10/15/2018 5:28 PM OPERATIONAL RISK CONSULTANT 10 mg oxyCODONE (ROXICODONE, OXY-IR) tablet Given 5-10 mg 5-10 mg, Oral, ONCE PRN, 1 dose, Starting Thu10/15/18 at 1702, Until Thu10/15/18 at 1728, Pain PO, For Pain Score <4, PACU (only) 10/16/2018 3:19 PM OPERATIONAL RISK CONSULTANT 15 mg oxyCODONE (ROXICODONE, OXY-IR) tablet Given 5-15 mg 5-15 mg, Oral, EVERY 3 HOURS PRN, Starting Thu10/15/18 at 2012, Until 10/16/18 at 1939, Pain PO 15 mg Given 10/16/2018 11:43 AM OPERATIONAL RISK CONSULTANT 15 mg Given 10/16/2018 8:29 AM OPERATIONAL RISK CONSULTANT 10/16/2018 8:24 AM OPERATIONAL RISK CONSULTANT [address] (PROTONIX) tablet 40 mg Given 40 mg, Oral, DAILY, First dose on Thu10/16/18 at 0900, Until Discontinued, Do not crush or chew tablet., 10/16/2018 6:25 AM OPERATIONAL RISK CONSULTANT 1 capsule tiotropium (SPIRIVA) capsule for inhaler Given 1 capsule 1 capsule, Inhalation, RT DAILY, First dose on Thu10/16/18 at 0600, Until Discontinued, When administered by RT, will be per RT policy. NOTES: Administer immediately after opening blister foil pouch. Each capsule is meant to deliver 2 inhalations (1 cap=2 inhalations)., 10/15/2018 8:39 PM OPERATIONAL RISK CONSULTANT 100 mg traZODone (DESYREL) tablet 100 mg Given 100 mg, Oral, AT BEDTIME DAILY, First dose on Thu10/15/18 at 2100, Until Discontinued 10/15/2018 4:53 PM OPERATIONAL RISK CONSULTANT 1 g Leg, Lower Right vancomycin (VANCOCIN) injection Given INTRA-PROCEDURE MED, Starting Thu10/15/18 at 1653, Until Thu10/15/18 at 1708, Intra-op in this encounter
--- OUTSIDE RECORDS SUMMARY | 2018-11-26 15:35 | XMS REPORT | Encounter Summary ---
Author Author [facility] Organization [facility] Address Unknown Phone Unavailable Care Team Providers Care Tunnel Elastic Operator Chainstitch Name Role Phone Osvaldo Palafox DO Unavailable Hermila Durbin MD Unavailable Rishi Cartwright MD Unavailable Donell Haque PA-C Unavailable Lizet Parsons RN Unavailable Unavailable Kristofer Dowling MD Unavailable Unavailable Harvinder Jj MD PCP Slade Merino DO 4 Reason for Referral * Consult, Test & Treat (Routine) Referred By Contact Referred To Contact Status Reason Specialty Diagnoses / Procedures Pradip Jaramillo MD [id number] [place] [address] Closed Specialty Services Diagnoses Required Penetrating wound Reason for Visit * Reason Comments Post-op Encounter Details Care Team Description Date [place] [address] [place] [address] [facility] [place], [place] [id number] Penetrating wound (Primary Dx) 10/07/2018 Office Visit [facility] - [facility] [address] [place] [address] Social History Date Tobacco Use [...] Progress Notes * Pradip Jaramillo MD - 10/07/2018 11:40 AM EQUAL OPPORTUNITY OFFICER She is here today for postpoerative follow [...] these notes, Kendal Grossman. 10/07/2018 1:25 PM L OPPORTUNITY OFFICER in this encounter Plan of Treatment Order Schedule Name Priority Associated Diagnoses Ordered: 10/07/2018 AMB REFERRAL TO HOME CARE Routine Penetrating wound as of this encounter Visit Diagnoses Diagnosis Penetrating wound - Primary Open wound(s) (multiple) of unspecified site(s), without mention of complication in this encounter
--- OUTSIDE RECORDS SUMMARY | 2018-11-26 15:35 | XMS REPORT | Encounter Summary ---
Author Author [facility] Organization [facility] Address Unknown Phone Unavailable Care Team Providers Care Student Support Counselor Name Role Phone SarbjitOsvaldo madden Unavailable Hermila Durbin MD Unavailable Rishi Cartwright MD Unavailable Donell Haque PA-C Unavailable Lizet Parsons RN Unavailable Unavailable Kristofer Dowling MD Unavailable Unavailable Harvinder Jj MD PCP Slade Merino DO 4 Encounter Details Care Team Description Date Type Department Pradip Jaramillo MD [address] [facility] [address] [place] [address] Penetrating wound (Primary Dx) 10/08/2018 Prep for Case [facility] - Orthopedics [facility] [address] [place] [address] Social History Date Tobacco Use [...] fileas of this encounter Visit Diagnoses Diagnosis Penetrating wound - Primary Open wound(s) (multiple) of unspecified site(s), without mention of complication in this encounter
--- OUTSIDE RECORDS SUMMARY | 2018-11-26 15:36 | XMS REPORT ---
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 Name Role Phone KING FISHMAN Unavailable PROBLEMS Type Condition ICD9-CM Code LFO27-YV Code Onset Dates Condition Status SNOMED Code Problem Lumbago with sciatica, left side M54.42 Active 437928604 Problem Other chronic pain G89.29 Active 54958676 Problem Lumbago with sciatica, right side M54.41 Active [id number] Problem Seasonal allergies J30.2 Active 953374335 Problem Iron deficiency anemia due to chronic blood loss D50.0 Active 878424832 Problem Cigarette nicotine dependence without complication F17.210 Active 33214977 Problem Chronic obstructive pulmonary disease, unspecified COPD type J44.9 Active 27981605 Problem Seizures R56.9 Active 08527653 Problem DM 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 Active 53786004 Problem Essential hypertension I10 Active 92600666 Problem Acquired hypothyroidism E03.9 Active 722964562 Problem Mixed hyperlipidemia E78.2 Active 703936321 Problem Reactive depression F32.9 Active 07038130 Problem Prediabetes R73.03 Active 983188507 Problem Gastroesophageal reflux disease, esophagitis presence not specified K21.9 Active 659119517 ALLERGIES No Information ENCOUNTERS Encounter Location Date Diagnosis [facility] [address] [facility] [id number] [address] Oct, [facility] [id number] [place] [address]19- 6904 Oct, [facility] [id number] [address] Oct, [facility] [address] [id number] [address] Oct, UTI (urinary tract infection) N39.0 and URI (upper respiratory infection) J06.9 [place] [id number] [place] [address] 23404- 4060 Sep, Pain in thoracic spine M54.6 [place] [id number] [place] [address] 98114- 0712 Sep, Type 2 diabetes mellitus with hyperglycemia E11.65 [place] [address] 08390- 4687 Sep, Chronic obstructive pulmonary disease, unspecified COPD type J44.9 ; Abrasion of right ear canal, initial encounter S00.411A ; Cigarette nicotine dependence without complication F17.210 ; Right leg pain M79.604 and Seasonal allergies J30.2 [place] [id number] [place] [address] 78032- 0550 Aug, [place] [address] 44233- 4645 Aug, [place] [id number] [place] [address] 67976- 6592 Aug, Pain in thoracic spine M54.6 [place] [id number] [place] [address] 41911- 5082 Aug, [place] [id number] [place] [address] 12931- 2174 Aug, Chronic obstructive pulmonary disease, unspecified COPD type J44.9 ; Complete amputation of right foot, 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 ; Cigarette nicotine dependence without complication F17.210 and BMI 40.0-44.9, adult Z68.41 [place] [address] 21628- 7915 Jul, [place] [id number] [place] [address] 43640- 3969 Jul, [place] [address] 46442- 4213 Jul, Onychomycosis B35.1 ; Onychocryptosis L60.0 and DM 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 [place] [address] 23981- 7421 Jun, Pain in thoracic spine M54.6 [place] [address] 36603- 9059 Jun, Iron deficiency anemia due to chronic blood loss D50.0 and Hematochezia K92.1 [place] [address] 61180- 2402 Jun, Gastroenteritis K52.9 and Abnormal RBC indices R71.8 [place] [address] 58698- 5019 Jun, [place] [address] 50280- 0924 Jun, Chest congestion R09.89 and Seizures R56.9 [place] [address] 55427- 7248 May, Pain in thoracic spine M54.6 [place] [address] 78510- 7681 May, [place] [address] 24527- 8900 May, [place] [address] 74489- 4648 May, [place] [address] 62304- 1201 May, Acute non-recurrent frontal sinusitis J01.10 and Dermatitis L30.9 [place] [address] 84541- 9964 May, [place] [address] 17417- 6160 May, Pain in thoracic spine M54.6 [facility] [id number] [place] [address] 76823- 0919 16 May, 2018 [facility] [id number] [place] [address] 77722- 2155 May, Acute nasopharyngitis J00 [facility] [id number] [place] [address] 98180- 4292 May, [facility] [id number] [place] [address] 22634- 3859 May, [facility] [id number] [place] [address] 81193- 1644 Apr, [facility] [id number] [place] [address] 60070- 0722 Apr, [facility] [id number] [place] [address] 23818- 6588 Apr, [facility] [id number] [place] [address] 60311- 0594 Apr, [facility] [id number] [place] [address] 54907- 5971 Apr, Pain in right ankle and joints of right foot M25.571 [facility] [id number] [place] [address] 76689- 5244 Apr, [facility] [id number] [place] [address] 67534- 8285 18 Apr, 2018 Bronchitis J40 ; Pain in right ankle and joints of right foot M25.571 ; Other chronic pain G89.29 ; Prediabetes R73.03 ; Chronic obstructive pulmonary disease, unspecified COPD type J44.9 and Cigarette nicotine dependence without complication F17.210 [facility] [address] [address] 13 Apr, 2018 Seasonal allergic rhinitis, unspecified trigger J30.2 [facility] [id number] [place] [address] 60215- 6577 Apr, Onychomycosis B35.1 ; Onychocryptosis L60.0 and DM 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 [place] [address] 62352- 2884 Apr, Reactive depression F32.9 ; Thoracic myofascial strain, initial encounter S29.019A and Leg cramps R25.2 [place] [address] 89666- 4878 March, [place] [address] 84288- 3274 March, Type 2 diabetes mellitus with hyperglycemia E11.65 [place] [address] 17737- 8765 March, Reactive depression F32.9 [place] [address] 53366- 4467 March, Pain in thoracic spine M54.6 and Other chronic pain G89.29 [place] [address] 75927- 9270 Feb, [place] [address] 77850- 7523 Jan, Reactive depression F32.9 ; Essential hypertension I10 ; Gastroesophageal reflux disease, esophagitis presence not specified K21.9 ; Lumbago with sciatica, left side M54.42 and Lumbago with sciatica, right side M54.41 [place] [id number] [place] [address] 44802- 4597 Jan, Reactive depression F32.9 and Pharyngoesophageal dysphagia R13.14 [place] [address] 65294- 7507 Jan, [place] [address] 37558- 4454 Jan, Encounter for immunization Z23 [place] [id number] [place] [address] 79133- 0631 Jan, Onychomycosis B35.1 and DM 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 [place] [id number] [place] [address] 27788- 1488 Jan, [place] [id number] [place] [address] 54904- 8078 Jan, Prediabetes R73.03 [facility] [address] 22564- 8299 Dec, [place] [address] 60367- 5867 Dec, Essential hypertension I10 ; Mixed hyperlipidemia E78.2 ; Acquired hypothyroidism E03.9 ; Reactive depression F32.9 and Prediabetes R73.03 [place] [address] 58884- 5725 Dec, [place] [id number] [place] [address] 57751- 6697 Dec, [place] [address] 03228- 4989 Dec, DM 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 [facility] [id number] [place] [address] 10617 -3553 Dec, Bruise T14.8XXA ; Type 2 diabetes mellitus with hyperglycemia E11.65 and FDC current use of insulin Z79.4 [place] [id number] [place] [address] 36722- 3297 Oct, [place] [address] 13910- 3271 March, Onychomycosis B35.1 and DM 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 [place] [id number] [place] [address] 52254- 5621 Jun, [facility] [place] [facility] [address] [id number] [place] [address]- 3386 Jun, [facility] [place] [facility] [address] [id number] [place] [address]- 4077 Jun, COPD with acute exacerbation 491.21 [facility] [place] [facility] [address] [id number] [place] [address]- 1613 Apr, [facility] [place] [facility] [address] [id number] [place] [address]- 7966 Feb, [facility] [place] [facility] [address] [id number] [place] [address]- 6511 Feb, [facility] [place] [facility] [address] [id number] [place] [address]- 1637 Jan, [facility] [place] [facility] [address] [id number] [place] [address]- 9396 Jan, [facility] [place] [facility] [address] [id number], [place] [address]- 7242 Jan, [facility] [place] [facility] [address] [id number] [place] [address]- 1224 Jan, [facility] [place] [facility] [address] [id number], [place] [address]- 0667 Jan, [facility] [place] [facility] [address] [id number], [place] [address]- 7019 Jan, [facility] [place] [facility] [address] [id number], [place] [address]- 3764 Jan, [facility] [place] [facility] [address] [id number] [place] [address]- 2835 Jan, [facility] [place] [facility] [address] [id number], [place] [address]- 4567 Jan, [facility] [place] [facility] [address] [id number], [place] [address]- 8370 Jan, [facility] [place] [facility] [address] [id number], [place] [address]- 7455 19 Jan, 2014 [facility] [place] [facility] [address] [id number] [place] [address]- 6161 18 Jan, 2015 [facility] [place] [facility] [address] [id number] [place] [address]- 7035 18 Jan, 2015 [facility] [place] [facility] [address] [id number] [place] [address]- 7054 16 Jan, 2014 [facility] [place] [facility] [address] [id number] [place] [address]- 9158 16 Jan, 2015 [facility] [place] [facility] [address] [id number] [place] [address]- 1603 16 Jan, 2015 [facility] [place] [facility] [address] [id number] [place] [address]- 6237 16 Jan, 2014 [facility] [place] [facility] [address] [id number] [place] [address]- 6353 15 Jan, 2015 [facility] [place] [facility] [address] [id number] [place] [address]- 3567 13 Jan, 2015 [facility] [place] [facility] [address] [id number] [place] [address]- 0832 13 Jan, 2015 [facility] [place] [facility] [address] [id number] [place] [address]- 0199 13 Jan, 2015 [facility] [place] [facility] [address] [id number] [place] [address]- 6680 13 Jan, 2015 [facility] [place] [facility] [address] [id number] [place] [address]- 9383 12 Jan, 2015 [facility] [place] [facility] [address] [id number] [place] [address]- 0615 04 Jan, 2015 [facility] [place] [facility] [address] [id number] [place] [address]- 9736 04 Jan, 2015 [facility] [place] [facility] [address] [id number] [place] [address]- 9086 24 Dec, 2014 [facility] [place] [facility] [address] [id number] [place] [address]- 3972 Dec, 2014 [facility] [place] [facility] [address] [id number] [place] [address]- 0107 Dec, 2014 [facility] [place] [facility] [address] [id number] [place] [address]- 1365 Dec, 2014 [facility] [place] [facility] [address] [id number] [place] [address]- 4432 Dec, 2014 [facility] [place] [facility] [address] [id number] [place] [address]- 3918 Dec, 2014 [facility] [place] [facility] [address] [id number] [place] [address]- 5928 Dec, 2014 [facility] [place] [facility] [address] [facility] [id number] [place] [address]- 2840 Dec, [facility] [place] [facility] [address] [id number] [place] [address]- 0394 Dec, 2014 [facility] [place] [facility] [address] [id number] [place] [address]- 2596 Dec, [facility] [place] [facility] [address] [facility] [facility] [id number] [place] [address]- 5455 Dec, [facility] [place] [facility] [address] [id number], [place] [address]- 1109 Dec, [facility] [place] [facility] [address] [id number], [place] [address]- 5598 Nov, [facility] [place] [facility] [address] [id number] [place] [address]- 2423 Nov, [facility] [place] [facility] [address] [id number], [place] [address]- 8499 Nov, [facility] [place] [facility] [address] [id number] [place] [address]- 8233 Nov, [facility] [place] [facility] [address] [id number] [place] [address]- 4456 Nov, [facility] [place] [facility] [address] [id number] [place] [address]- 7961 Nov, [facility] [place] [facility] [address] [id number] [place] [address]- 8670 Nov, [facility] [place] [facility] [address] [id number] [place] [address]- 6400 Nov, [facility] [place] [facility] [address] [id number] [place] [address]- 2666 Nov, [facility] [place] [facility] [address] [id number] [place] [address]- 2471 Nov, [facility] [place] [facility] [address] [id number] [place] [address]- 8988 Nov, [facility] [place] [facility] [address] [id number] [place] [address]- 0609 Nov, [facility] [place] [facility] [address] [id number] [place] [address]- 9343 Oct, [facility] [place] [facility] [address] [id number] [place] [address]- 4295 Oct, [facility] [place] [facility] [address] [facility] [id number] [place] [address]- 6296 Oct, [facility] [place] [facility] [address] [id number] [place] [address]- 8242 Oct, [facility] [place] [facility] [address] [id number] [place] [address]- 5637 Oct, [facility] [place] [facility] [address] [id number] [place] 2881 Oct, [facility] [place] [facility] [address] [id number] [place] [address]- 9292 Oct, [facility] [place] [facility] [address] [id number] [place] 4563 Oct, [facility] [place] [facility] [address] [id number] [place] [address]- 2608 Oct, [facility] [place] [facility] [address] [id number] [place] [address]- 8169 Oct, [facility] [place] [facility] [address] [id number] [place] 1948 Oct, [facility] [place] [facility] [address] [id number] [place] [address]- 7466 Oct, [facility] [place] [facility] [address] [id number] [place] [address]- 3626 Oct, [facility] [place] [facility] [address] [id number] [place] [address]- 4278 Oct, [facility] [place] [facility] [address] [id number] [place] [address]- 3136 Oct, [facility] [place] [facility] [address] [id number] [place] [address]- 3158 Sep, [facility] [place] [facility] [address] [id number] [place] [address]- 9660 Sep, [facility] [place] [facility] [address] [id number] [place] [address]- 6008 Sep, [facility] [place] [facility] [address] [id number] [place] [address]- 0676 Sep, [facility] [place] [facility] [address] [id number] [place] [address]- 7850 Aug, [facility] [place] [facility] [address] [id number] [place] [address]- 2327 Aug, [facility] [place] [facility] [address] [id number] [place] [address]- 3955 Aug, [facility] [place] [facility] [address] [id number] [place] [address]- 8104 Aug, [facility] [place] [facility] [address] [id number] [place] [address]- 5366 Aug, [facility] [place] [facility] [address] [id number] [place] [address]- 6037 Aug, [facility] [place] [facility] [address] [id number] [place] [address]- 3956 29 Jul, 2014 [facility] [place] [facility] [address] [id number] [place] [address]- 7062 29 Jul, 2014 [facility] [place] [facility] [address] [id number] [place] [address]- 6094 15 Jul, 2014 [facility] [place] [facility] [address] [id number] [place] [address]- 6743 15 Jul, 2014 [facility] [place] [facility] [address] [id number] [place] [address]- 8974 08 Jul, 2014 [facility] [place] [facility] [address] [id number] [place] [address]- 4784 Jul, [facility] [place] [facility] [address] [id number] [place] [address]- 5252 Jun, [facility] [place] [facility] [address] [id number] [place] [address]- 3526 Jun, [facility] [place] [facility] [address] [id number] [place] [address]- 4328 Jun, [facility] [place] [facility] [address] [id number] [place] [address]- 4454 Jun, [facility] [place] [facility] [address] [id number] [place] [address]- 1407 Jun, [facility] [place] [facility] [address] [id number] [place] [address]- 7871 Jun, [facility] [place] [facility] [address] [id number] [place] [address]- 6282 Jun, [facility] [place] [facility] [address] [id number] [place] [address]- 6834 May, [facility] [place] [facility] [address] [id number] [place] [address]- 7005 May, [facility] [place] [facility] [address] [id number] [place] [address]- 2125 May, [facility] [place] [facility] [address] [id number] [place] [address]- 1726 May, [facility] [place] [facility] [address] [id number] [place] [address]- 3300 May, [facility] [place] [facility] [address] [id number] [place] [address]- 9726 May, 2013 [facility] [place] [facility] [address] [id number] [place] [address]- 5307 May, [facility] [place] [facility] [address] [id number] [place] [address]- 3662 May, [facility] [place] [facility] [address] [id number] [place] [address]- 7733 May, [facility] [place] [facility] [address] [id number] [place] [address]- 5041 May, [facility] [place] [facility] [address] [id number] [place] [address]- 4940 May, [facility] [place] [facility] [address] [id number] [place] [address]- 9294 May, [facility] [place] [facility] [address] [id number] [place] [address]- 3034 Apr, [facility] [place] [facility] [address] [id number] [place] [address]- 2994 Apr, [facility] [place] [facility] [address] [id number] [place] [address]- 0364 Apr, [facility] [place] [facility] [address] [id number] [place] [address]- 0650 Apr, [facility] [place] [facility] [address] [id number] [place] 9024 Apr, [facility] [place] [facility] [address] [id number] [place] [address]- 5678 Apr, [facility] [place] [facility] [address] [id number] [place] [address]- 4750 Apr, [facility] [place] [facility] [address] [id number] [place] [address] Apr, [facility] [place] [facility] [address] [id number] [place] [address] Apr, [facility] [place] [facility] [address] [id number] [place] [address] Apr, [facility] [place] [facility] [address] [id number] [place] [address] March, [facility] [place] [facility] [address] [id number] [place] [address] March, [facility] [place] [facility] [address] [id number] [place] [address] March, [facility] [place] [facility] [address] [id number] [place] [address] March, [facility] [place] [facility] [address] [id number] [place] [address] March, [facility] [place] [facility] [address] [id number] [place] [address] March, [facility] [place] [facility] [address] [id number] [place] [address] Feb, [facility] [place] [facility] [address] [id number] [place] [address] Feb, [facility] [place] [facility] [address] [id number] [place] [address] Feb, [facility] [place] [facility] [address] [id number] [place] [address] Feb, [facility] [place] [facility] [address] [id number] [place] [address] Feb, [facility] [place] [facility] [address] [id number] [place] [address] Feb, [facility] [place] [facility] [address] [id number] [place] [address] Feb, [facility] [place] [facility] [address] [facility] [id number] [place] [address] Feb, [facility] [place] [facility] [address] [id number] [place] [address] Feb, [facility] [place] [facility] [address] [id number] [place] [address] Feb, [facility] [place] [facility] [address] [id number] [place] [address] Jan, [facility] [place] [facility] [address] [id number] [place] [address] Jan, [facility] [place] [facility] [address] [id number] [place] [address] Jan, [facility] [place] [facility] [address] [id number] [place] [address] Jan, [facility] [place] [facility] [address] [facility] [id number] [place] [address] Jan, [facility] [place] [facility] [address] [id number] [place] [address] Jan, [facility] [place] [facility] [address] [id number] [place] [address] Jan, [facility] [place] [facility] [address] [id number] [place] [address] Jan, [facility] [place] [facility] [address] [facility] [id number] [place] [address] Dec, [facility] [place] [facility] [address] [facility] [id number] [place] [address] Dec, [facility] [place] [facility] [address] [id number] [place] [address] Dec, [facility] [place] [facility] [address] [id number] [place] [address] Dec, [facility] [place] [facility] [address] [id number] [place] [address]70 Dec, [facility] [place] [facility] [address] [id number] [place] [address] Dec, [facility] [place] [facility] [address] [id number] [place] [address] Dec, [facility] [place] [facility] [address] [id number] [place] [address] Dec, [facility] [place] [facility] [address] [id number] [place] [address] Nov, [facility] [place] [facility] [address] [id number] [place] [address] Nov, [facility] [place] [facility] [address] [id number] [place] [address] Nov, [facility] [place] [facility] [address] [id number] [place] [address] Nov, [facility] [place] [facility] [address] [id number], [place] [address] Nov, [facility] [place] [facility] [address] [id number], [place] [address] Nov, [facility] [place] [facility] [address] [id number] [place] [address] Nov, [facility] [place] [facility] [address] [id number] [place] [address]- [address] Nov, [facility] [place] [facility] [address] [id number] [place] [address] Nov, [facility] [place] [facility] [address] [id number], [place] [address] Nov, [facility] [address] [id number] [place] [address] Nov, [facility] [place] [facility] [address] [facility] [id number], [place] [address] Oct, [facility] [place] [facility] [address] [facility] [id number] [place] [address] Oct, [facility] [place] [facility] [address] [facility] [id number], [place] [address] Oct, [facility] [place] [facility] [address] [facility] [id number] [place] [address], [place] [address] Oct, [facility] [place] [facility] [address] [facility] [id number] [place] [address] 94[address] Sep, [facility] [place] [facility] [address] [id number] [address] Sep, [facility] [place] [facility] [address] [facility] [id number], [place] [address] Sep, [facility] [place] [facility] [address] [id number], [place] [address] Sep, [facility] [place] [facility] [address] [id number], [place] [address] 9224 Aug, [facility] [place] [facility] [address] [facility] [id number], [place] [address] Aug, [facility] [place] [facility] [address] [facility] [id number], [place] [address] 7986 Aug, [facility] [place] [facility] [address] [id number], [place] [address] Aug, [facility] [place] [facility] [address] [facility] [id number], [place] [address]234 Aug, [facility] [place] [facility] [address] [facility] [id number], [place] [address] 8218 Aug, [facility] [place] [facility] [address] [id number] [place] [address]- 8621 04 Aug, 2013 [facility] [place] [facility] [address] [id number] [place] [address]- 7005 Aug, [facility] [place] [facility] [address] [id number] [place] [address] 2541 28 Jul, 2012 [facility] [place] [facility] [address] [id number] [place] [address] 2546 27 Sep, 2012 [facility] [place] [facility] [address] [id number] [place] [address] 2545 26 Sep, 2012 [facility] [place] [facility] [address] [id number] [place] [address]- 7072 24 Jul, 2012 [facility] [place] [facility] [address] [id number] [place] [address]- 8525 24 Jul, 2012 [facility] [place] [facility] [address] [id number] [place] [address]- 4976 23 Jul, 2012 [facility] [place] [facility] [address] [id number] [place] [address]- 6618 19 Jul, 2012 [facility] [place] [facility] [address] [id number] [place] [address]- 8801 18 Jul, 2012 [facility] [place] [facility] [address] [id number] [place] [address]- 1328 17 Jul, 2012 [facility] [place] [facility] [address] [id number] [place] [address]- 2547 16 Sep, 2012 [facility] [place] [facility] [address] [id number] [place] [address] 254 13 Sep, 2012 [facility] [place] [facility] [address] [id number] [place] [address] 2546 13 Sep, 2012 [facility] [place] [facility] [address] [id number] [place] [address] 2549 12 Sep, 2012 [facility] [place] [facility] [address] [id number] [place] [address]- 3433 Jul, [facility] [address] [id number] [place] [address]- 3222 Jul, [facility] [place] [facility] [address] [id number] [place] [address]- 5976 Jun, [facility] [place] [facility] [address] [id number] [place] [address]- 3050 Jun, [facility] [place] [facility] [address] [id number] [place] [address]- 8383 Jun, [facility] [place] [facility] [address] [id number] [place] [address]- 2092 May, [facility] [place] [facility] [address] [id number] [place] [address]- 3610 May, [facility] [place] [facility] [address] [id number] [place] [address]- 2518 May, [facility] [place] [facility] [address] [id number] [place] [address]- 1178 May, [facility] [place] [facility] [address] [id number] [place] [address]- 3802 Apr, [facility] [place] [facility] [address] [id number] [place] [address]- 1292 Apr, [facility] [place] [facility] [address] [id number], [place] [address] 2599 Apr, [facility] [place] [facility] [address] [id number], [place] [address]- 7963 Apr, [facility] [place] [facility] [address] [id number] [place] [address]- 4108 March, [facility] [place] [facility] [address] [id number] [place] [address]- 1700 March, [facility] [place] [facility] [address] [id number] [place] [address]- 0457 March, [facility] [place] [facility] [address] [id number] [place] [address]- 9277 10 Feb, 2013 [facility] [address] [id number] [place] [address]- 2093 Feb, [facility] [place] [facility] [address] [id number] [place] [address]- 8750 Jan, [facility] [address] [facility] [facility] [id number] [place] [address]- 0814 Jan, [facility] [place] [facility] [address] [id number] [place] [address] 2543 Jan, [facility] [address] [id number] [place] [address]- 3308 05 Jan, 2013 [facility] [place] [facility] [address] [facility] [facility] [id number] [place] [address]- 3066 Jan, [facility] [id number] [place] [address]- 1078 Dec, [facility] [address] [facility] [facility] [id number] [place] [address]- 9091 Dec, [facility] [place] [facility] [id number] [place] [address]- 6230 Dec, [facility] [address] [facility] [id number] [place] [address]- 2422 Dec, [facility] [place] [facility] [address] [facility] [facility] [id number] [place] [address] 2540 18 Dec, 2012 [facility] [place] [facility] [address] [facility] [facility] [id number] [place] [address] 2540 06 Dec, 2012 [facility] [place] [facility] [address] [facility] [id number] [place] [address] 2546 04 Dec, 2012 [facility] [place] [facility] [address] [facility] [facility] [id number] [place] [address]- 2546 Dec, [facility] [place] [facility] [address] [id number] [place] [address] 2710 Nov, [facility] [address] [id number] [place] [address]- 2188 Nov, [facility] [address] [id number] [place] [address]- 0127 Nov, [facility] [address] [id number] [place] [address]- 1968 Nov, [facility] [place] [facility] [address] [id number] [place] [address]- 1286 Nov, [facility] [address] [id number] [place] [address]- 9151 Nov, [facility] [address] [id number] [place] [address]- 9286 Nov, [facility] [address] [id number] [place] [address]- 1678 Oct, [facility] [place] [facility] [address] [id number] [place] [address]- 1720 Oct, [facility] [address] [id number] [place] [address]- 8534 Oct, [facility] [place] [facility] [address] [id number] [place] [address]- 9415 Oct, [facility] [place] [facility] [address] [id number], [place] [address]- 3246 Oct, [facility] [place] [facility] [address] [id number], [place] [address]- 8690 Oct, [facility] [place] [facility] [address] [id number] [place] [address]- 6167 Oct, [facility] [place] [facility] [address] [id number] [place] [address]- 4291 Oct, [facility] [place] [facility] [address] [id number] [place] [address]- 8860 Sep, [facility] [place] [facility] [address] [id number] [place] [address]- 5937 Sep, [facility] [place] [facility] [address] [id number] [place] [address]- 4364 Sep, [facility] [place] [facility] [address] [id number] [place] [address]- 0616 Sep, [facility] [place] [facility] [address] [id number] [place] [address]- 9122 Sep, [facility] [place] [facility] [address] [id number] [place] [address]- 4139 Sep, [facility] [place] [facility] [address] [id number] [place] [address]- 1452 Sep, [facility] [place] [facility] [address] [id number] [place] [address]- 4465 Sep, [facility] [place] [facility] [address] [id number] [place] [address]- 8904 Sep, [facility] [place] [facility] [address] [id number] [place] [address]- 1691 Sep, [facility] [place] [facility] [address] [id number] [place] [address]- 7094 Sep, [facility] [place] [facility] [address] [facility] [id number] [place] [address]- 6639 Sep, [facility] [place] [facility] [address] [id number] [place] [address]- 8924 Sep, [facility] [place] [facility] [address] [id number], [place] [address]- 2541 Sep, [facility] [place] [facility] [address] [id number] [place] [address]- 8485 Sep, [facility] [place] [facility] [address] [id number] [place] [address]- 1018 Sep, [facility] [place] [facility] [address] [id number], [place] [address]- 4026 Sep, [facility] [place] [facility] [address] [id number] [place] [address]- 6553 Sep, [facility] [place] [facility] [address] [id number] [place] [address]- 6335 Sep, [facility] [place] [facility] [address] [id number] [place] [address]- 5618 Sep, [facility] [place] [facility] [address] [id number] [place] [address], [place] [address]- 8005 Aug, [facility] [place] [facility] [address] [id number] [place] [address]- 6883 Aug, [facility] [place] [facility] [address] [id number] [place] [address]- 9601 29 Aug, 2012 [facility] [place] [facility] [address] [id number] [place] [address]- 9638 Aug, [facility] [place] [facility] [address] [id number] [place] [address]- 8997 Aug, [facility] [place] [facility] [address] [id number] [place] [address]- 3146 Aug, [facility] [place] [facility] [address] [id number] [place] [address]- 1916 18 Aug, 2012 [facility] [place] [facility] [address] [id number] [place] [address]- 0759 17 Aug, 2012 [facility] [place] [facility] [address] [id number], [place] [address]- 4357 16 Aug, 2012 [facility] [place] [facility] [address] [id number] [place] [address]- 8108 16 Aug, 2012 [facility] [place] [facility] [address] [id number] [place] [address]- 1423 15 Aug, 2012 [facility] [place] [facility] [address] [id number] [place] [address]- 6625 09 Aug, 2012 [facility] [place] [facility] [address] [id number], [place] [address]- 2546 Aug, [facility] [place] [facility] [address] [id number] [place] [address]- 0402 Aug, [facility] [place] [facility] [address] [id number] [place] [address]- 1006 Aug, [facility] [place] [facility] [address] [id number] [place] [address]- 3486 14 Jul, 2012 [facility] [place] [facility] [address] [id number] [place] [address]- 2896 Jul, [facility] [place] [facility] [address] [id number] [place] [address]- 1444 Jun, [facility] [place] [facility] [address] [id number] [place] [address]- 2762 Jun, [facility] [place] [facility] [address] [id number] [place] [address]- 9004 May, [facility] [place] [facility] [address] [id number] [place] [address]- 6949 May, [facility] [place] [facility] [address] [id number] [place] [address]- 9109 May, [facility] [place] [facility] [address] [id number] [place] [address]- 8009 May, [facility] [place] [facility] [address] [id number] [place] [address]- 5271 May, [facility] [place] [facility] [address] [id number] [place] [address]- 1510 May, [facility] [place] [facility] [address] [id number] [place] [address]- 4487 Apr, [facility] [place] [facility] [address] [id number] [place] [address]- 1283 Apr, [facility] [place] [facility] [address] [id number] [place] [address]- 9542 March, [facility] [place] [facility] [address] [id number] [place] [address]- 7735 March, [facility] [address] [id number] [place] [address]- 4417 March, [facility] [address] [id number] [place] [address]- 7676 March, [facility] [address] [id number] [place] [address]- 5544 March, [facility] [address] [id number] [place] [address]- 3834 March, [facility] [address] [id number] [place] [address]- 2087 Feb, [facility] [address] [id number] [place] [address]- 1665 Feb, [facility] [address] [id number] [place] [address]- 8716 Feb, [facility] [address] [id number] [place] [address]- 1802 Feb, [facility] [address] [id number] [place] [address]- 7880 Feb, [facility] [address] [id number] [place] [address]- 8475 Feb, [facility] [address] [id number] [place] [address]- 4450 Feb, [facility] [address] [id number] [place] [address]- 9110 Feb, [facility] [address] [id number] [place] [address]- 4414 04 Feb, 2012 [facility] [address] [id number] [place] [address]- 4677 30 Jan, 2012 [facility] [address] [id number] [place] 1064 Jan, [facility] [place] [facility] [address] [id number] [place] [address]- 0246 26 Jan, 2012 [facility] [place] [facility] [address] [id number] [place] [address]- 9923 22 Jan, 2012 [facility] [place] [facility] [address] [id number] [place] [address]- 0983 21 Jan, 2012 [facility] [place] [facility] [address] [id number] [place] [address]- 8301 20 Jan, 2012 [facility] [place] [facility] [address] [id number] [place] [address]- 3352 14 Jan, 2012 [facility] [place] [facility] [address] [id number] [place] [address]- 8755 09 Jan, 2012 [facility] [place] [facility] [address] [id number] [place] [address]- 9696 09 Jan, 2012 [facility] [place] [facility] [address] [id number] [place] [address]- 3665 08 Jan, 2012 [facility] [place] [facility] [address] [id number] [place] [address]- 8563 07 Jan, 2012 [facility] [place] [facility] [address] [id number] [place] [address]- 9414 06 Jan, 2012 [facility] [place] [facility] [address] [id number] [place] [address]- 2671 Jan, [facility] [place] [facility] [address] [id number] [place] [address]- 0688 Jan, [facility] [place] [facility] [address] [id number] [place] [address]- 9941 Dec, [facility] [place] [facility] [address] [id number] [place] [address]- 5247 Dec, [facility] [place] [facility] [address] [id number] [place] [address]- 9271 Dec, [facility] [place] [facility] [address] [id number] [place] [address]- 7566 23 Dec, 2011 [facility] [address] [id number] [place] [address]- 8016 16 Dec, 2011 [facility] [place] [facility] [address] [id number] [place] [address] 2546 08 Dec, 2011 [facility] [address] [id number] [place] [address] 2546 08 Dec, 2011 [facility] [address] [id number] [place] [address] 2546 Dec, [facility] [address] [id number] [place] [address]- 6946 Dec, [facility] [address] [id number] [place] [address]- 0106 Nov, [facility] [address] [id number] [place] [address] 2546 Nov, [facility] [address] [id number] [place] [address]- 1068 Nov, [facility] [address] [facility] [id number] [place] [address]- 6957 Nov, [facility] [address] [facility] [id number] [place] [address]- 4973 Oct, [facility] [address] [id number] [place] [address] 2546 Oct, [facility] [address] [id number] [place] [address] 2546 Oct, [facility] [place] [facility] [address] [id number] [place] [address] 2546 Oct, [facility] [address] [id number] [place] [address] 2546 Oct, [facility] [address] [facility] [id number] [place] [address]- 4025 Oct, [facility] [place] [facility] [address] [id number] [place] [address]- 6705 Oct, [facility] [place] [facility] [address] [id number] [place] [address]- 6620 Sep, [facility] [place] [facility] [address] [id number] [place] [address]- 5208 Sep, [facility] [place] [facility] [address] [id number] [place] [address]- 8065 Sep, [facility] [place] [facility] [address] [id number] [place] [address]- 2550 Sep, [facility] [place] [facility] [address] [id number] [place] [address]- 2778 Sep, [facility] [place] [facility] [address] [id number] [place] [address]- 5289 Sep, [facility] [place] [facility] [address] [id number] [place] [address]- 3765 Sep, [facility] [place] [facility] [address] [id number] [place] [address]- 6279 Sep, [facility] [place] [facility] [address] [id number] [place] [address]- 1851 Sep, [facility] [place] [facility] [address] [id number] [place] [address]- 8600 Aug, [facility] [place] [facility] [address] [id number], [place] [address]- 9237 Aug, [facility] [place] [facility] [address] [id number] [place] [address]- 4850 Aug, [facility] [place] [facility] [address] [id number] [place] [address]- 7567 May, [facility] [place] [facility] [address] [id number] [place] [address]- 3966 Nov, [facility] [place] [facility] [address] [id number], [place] [address]- 2901 31 Oct, 2010 [facility] [address] [id number] [place] [address]- 8976 30 Oct, 2010 [facility] [address] [id number] [place] 30 Oct, 2010 [facility] [address] [id number] [place] [address] Oct, [facility] [place] [facility] [address] [id number] [place] [address] Oct, [facility] [address] [id number] [place] [address] Sep, [facility] [address] [id number] [place] [address] Sep, [facility] [address] [id number], [place] [address] 14 Jul, 2010 [facility] [address] [id number], [place] [address] Oct, [facility] [address] [id number] [place] [address] Oct, [facility] [address] [facility] [id number], [place] [address] Oct, [facility] [address] [id number], [place] [address] Oct, [facility] [place] [facility] [address] [id number], [place] [address] 30 Sep, 2009 [facility] [place] [facility] [address] [id number], [place] [address] Sep, [facility] [place] [facility] [address] [id number], [place] [address] Sep, [facility] [place] [facility] [address] [facility] [id number] [address] Sep, [facility] [place] [facility] [address] [facility] [id number] [place] [address] Sep, [facility] [address] [facility] [id number], [place] [address] Jul, [facility] [address] [facility] [id number], [place] [address] Apr, [facility] [address] [facility] [id number], [place] [address] Dec, IMMUNIZATIONS No Known Immunizations SOCIAL HISTORY Never Assessed REASON FOR VISIT medication question PLAN OF CARE VITAL SIGNS MEDICATIONS Medication Instructions Dosage Frequency Start Date End Date Duration Status Cyclobenzaprine HCl 10 mg Orally Three times a day 1 tablet as needed 8h 10 Active RESULTS No Results PROCEDURES No Known procedures INSTRUCTIONS MEDICATIONS ADMINISTERED No Known Medications MEDICAL (GENERAL) HISTORY Type Description Date Medical History hypertension Medical History hyperlipidemia Medical History diabetes type II Medical History COPD Medical History asthma Medical History rt foot amputated Surgical History hysterectomy Surgical History arthritis surgery Surgical History rt foot amputation 08/20/18 Hospitalization History surgeries Hospitalization History rt foot amputation 08/20/18
--- OUTSIDE RECORDS SUMMARY | 2018-11-26 15:36 | XMS REPORT | Encounter Summary ---
Author Author [facility] Organization [facility] Address Unknown Phone Unavailable Care Team Providers Care Company Dancer Name Role Phone Osvaldo Palafox DO Unavailable Hermila Durbin MD Unavailable Rishi Cartwright MD Unavailable Donell Haque PA-C Unavailable Lizet Parsons RN Unavailable Unavailable Kristofer Dowling MD Unavailable Unavailable Harvinder Jj MD PCP Slade Merino DO 4 Reason for Referral * Consult, Test & Treat (Routine) Referred By Contact Referred To Contact Status Reason Specialty Diagnoses / [place] [address] [place] [address] [address] [place] [address] Closed Specialty Services Diagnoses Required Wound drainage Postoperative wound dehiscence, initial encounter Reason for Visit * Reason Comments Post-op right BKA Encounter Details Care Team Description Date Type [place] [address] [place] [address] [address] [place], [place] [id number] Wound drainage (Primary Dx); Postoperative wound dehiscence, initial encounter 09/16/2018 Office Visit [facility] - [facility] [address] [place] [address] Social History Date Tobacco Use [...] Saturation - - Inhaled Oxygen - Concentration 09/16/2018 11:06 AM CDT Weight 82.1 kg (181 lb) 09/16/2018 11:06 AM CDT Height 170.2 cm (5' 7") 09/16/2018 11:06 AM CDT Body Mass Index 28.35 in this encounter [...] Progress Notes * Pradip Jaramillo MD - 09/16/2018 9:50 AM CDT She is here today for postoperative follow up s/p right below-knee amputation. She states that she fell approximately a week ago. She sustained a fall about a week ago. She has had increased redness and an area of wound dehiscence since that time. I have gone ahead and sharply debrided this. I have taken a culture. She has not been on antibiotics. I have taken out a portion of her sutures. I would be afraid to take them all out. Some of this is just marginal fat necrosis. It does not seem to probe deep. I would like her to start doing some wet-to-dry dressing changes with Dakin's. I have written her for some hydrocodone today and encouraged her to continue to wean down on this. I will see her back in two weeks, and we will follow the culture. I have written her for Bactrim. In the presence of Pradip Jaramillo MD, I have taken down these notes, Kendal Grossman. 09/16/2018 12:43 PM in this encounter Plan of Treatment Order Schedule Name Priority Associated Diagnoses Ordered: 09/16/2018 AMB REFERRAL TO HOME CARE Routine Wound drainage Postoperative wound dehiscence, initial encounter as of this encounter Results * CULTURE-WOUND/TISSUE/FLUID(AEROBIC ONLY)W/SENSITIVITY (09/16/2018 1:24 PM CDT ) Battery Name ROUTINE CULTURE [facility] Specimen Description SWAB [facility] RIGHT BKA Special Requests NONE [facility] Culture Moderate growth [facility] STAPHYLOCOCCUS, COAGULASE NEGATIVE Report Status FINAL MAIN LAB 09/18/2018 Specimen Swab Performing Organization Address [facility] Phone Number MAIN LAB [address] [place] [address] * CULTURE-FUNGAL,OTHER (09/16/2018 1:24 PM CDT) Battery Name FUNGUS CULTURE [facility] Specimen Description SWAB [facility] RIGHT BKA Special Requests NONE [facility] Culture NO GROWTH OF FUNGUS AT 4 WEEKS [facility] Report Status FINAL MAIN LAB 10/18/2018 Specimen Swab Performing Organization Address [facility] Phone Number MAIN LAB [address] [place] [address] * CULTURE-ANAEROBIC (09/16/2018 1:24 PM CDT) Battery Name ANAEROBE CULTURE [facility] Specimen Description SWAB [facility] RIGHT BKA Special Requests NONE [facility] Culture NO ANAEROBES ISOLATED [facility] Report Status FINAL MAIN LAB 09/21/2018 Specimen Swab Performing Organization Address [facility] Phone Number MAIN LAB [address] [place] [address] in this encounter Visit Diagnoses Diagnosis Wound drainage - Primary Open wound(s) (multiple) of unspecified site(s), without mention of complication Postoperative wound dehiscence, initial encounter in this encounter
--- OUTSIDE RECORDS SUMMARY | 2018-11-26 15:36 | XMS REPORT | Encounter Summary ---
Author Author [facility] Organization [facility] Address Unknown Phone Unavailable Care Team Providers Care Pediatric Acute Care Unit Nurse Name Role Phone SarbjitmaryanneOsvaldo DO Unavailable Hermila Durbin MD Unavailable Rishi Cartwright MD Unavailable Donell Haque PA-C Unavailable Lizet Parsons RN Unavailable Unavailable Kristofer Dowling MD Unavailable Unavailable Harvinder Jj MD PCP Slade Merino DO 4 Reason for Visit * Reason Comments Post Operative Visit Encounter Details Care Team Description Date Type Department Pradip Jaramillo MD [address] [facility] [address] [place] [address] S/P below knee amputation, right (HCC) (Primary Dx) 09/02/2018 Office Visit [facility] Phys[facility] - [facility]oped[facility] [address] [place] [address] Social History Date Tobacco Use [...] Saturation - - Inhaled Oxygen - Concentration 09/02/2018 10:35 AM CDT Weight 82.1 kg (181 lb) 09/02/2018 10:35 AM CDT Height 170.2 cm (5' 7") 09/02/2018 10:35 AM CDT Body Mass Index 28.35 in [...] Progress Notes * Pradip Jaramillo MD - 09/02/2018 10:45 AM CDT She is here today for initial postoperative follow up s/p right below-knee amputation. She states that her pain level is not tolerable. She is taking 200 -300 mg of gabapentin twice a day. She is also having issues with getting in and out of her bed at home. She has in-home therapy. I have told her that she may want to consider increasing her gabapentin. I have encouraged her to work on motion of her knee. I have renewed her pain medication today as well. I will see her back in four weeks In the presence of Pradip Jaramillo MD, I have taken down these notes, Kendal Grossman. 09/02/2018 11:45 AM in this encounter Plan of Treatment Not on fileas of this encounter Visit Diagnoses Diagnosis S/P below knee amputation, right (HCC) - Primary in this encounter
[2018-11-26 15:37] LABS: BILIRUBIN,URINE 1+ (NEGATIVE)
--- OUTSIDE RECORDS SUMMARY | 2018-11-26 15:37 | XMS REPORT ---
Author Author KING FISHMAN [facility] Address [address] [place] [address] Care Team Providers Care Distribution Estimator Name Role Phone KING FISHMAN Unavailable PROBLEMS Type Condition ICD9-CM Code RMP96-OV Code Onset Dates Condition Status SNOMED Code Problem Lumbago with sciatica, left side M54.42 Active 685232349 Problem Other chronic pain G89.29 Active 96777871 Problem Lumbago with sciatica, right side M54.41 Active [id number] Problem Seasonal allergies J30.2 Active 550392004 Problem Iron deficiency anemia due to chronic blood loss D50.0 Active 774468509 Problem Cigarette nicotine dependence without complication F17.210 Active 72488415 Problem Chronic obstructive pulmonary disease, unspecified COPD type J44.9 Active 43668461 Problem Seizures R56.9 Active 78579662 Problem DM 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 Active 60488911 Problem Essential hypertension I10 Active 73698439 Problem Acquired hypothyroidism E03.9 Active 420652806 Problem Mixed hyperlipidemia E78.2 Active 454468256 Problem Reactive depression F32.9 Active 10393271 Problem Prediabetes R73.03 Active 294780021 Problem Gastroesophageal reflux disease, esophagitis presence not specified K21.9 Active 308769700 ALLERGIES Substance Reaction Event Type Date Status Penicillin G Potassium anaphylaxis Drug Allergy Oct, Active Codeine Sulfate anaphylaxis Drug Allergy Oct, Active Aspirin hives Drug Allergy Oct, Active Peanut hives Non Drug Allergy Oct, Active ENCOUNTERS Encounter Location Date Diagnosis [facility] [address] [facility] [id number], [place] [address] Oct, [facility] [address] [id number], [place] [address] Oct, [facility] [id number] [place] [address] 63971- 1771 Oct, UTI (urinary tract infection) N39.0 and URI (upper respiratory infection) J06.9 [place] [id number] [place] [address] 47025- 4533 Sep, Pain in thoracic spine M54.6 [place] [id number] [place] [address] 61850- 6855 Sep, Type 2 diabetes mellitus with hyperglycemia E11.65 [place] [id number] [place] [address] 81338- 5458 Sep, Chronic obstructive pulmonary disease, unspecified COPD type J44.9 ; Abrasion of right ear canal, initial encounter S00.411A ; Cigarette nicotine dependence without complication F17.210 ; Right leg pain M79.604 and Seasonal allergies J30.2 [place] [id number] [place] [address] 52557- 6150 Aug, [place] [id number] [place] [address] 90960- 3649 Aug, [place] [id number] [place] [address] 65398- 7274 Aug, Pain in thoracic spine M54.6 [place] [id number] [place] [address] 50059- 3717 Aug, [place] [id number] [place] [address] 32292- 6982 Aug, Chronic obstructive pulmonary disease, unspecified COPD type J44.9 ; Complete amputation of right foot, 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 ; Cigarette nicotine dependence without complication F17.210 and BMI 40.0-44.9, adult Z68.41 [place] [id number] [place] [address] 43286- 1358 Jul, [place] [id number] [place] [address] 30331- 6233 Jul, [place] [address] 59747- 2498 Jul, Onychomycosis B35.1 ; Onychocryptosis L60.0 and DM 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 [place] [id number] [place] [address] 13041- 0071 Jun, Pain in thoracic spine M54.6 [place] [address] 05236- 8225 Jun, Iron deficiency anemia due to chronic blood loss D50.0 and Hematochezia K92.1 [place] [address] 87650- 5357 Jun, Gastroenteritis K52.9 and Abnormal RBC indices R71.8 [place] [address] 88028- 9766 Jun, [place] [address] 67353- 3249 Jun, Chest congestion R09.89 and Seizures R56.9 [place] [address] 14271- 5937 May, Pain in thoracic spine M54.6 [place] [address] 47369- 3842 May, [place] [address] 11181- 9887 May, [facility] [address] 39513- 3713 May, [facility] [address] 07342- 6962 May, Acute non-recurrent frontal sinusitis J01.10 and Dermatitis L30.9 [facility] [id number] [place] [address] 79537- 5517 May, [facility] [address] 16885- 0497 May, Pain in thoracic spine M54.6 [facility] [id number] [place] [address] 92395- 6748 May, [facility] [id number] [place] [address] 90209- 6492 May, Acute nasopharyngitis J00 [facility] [id number] [place] [address] 18850- 9745 May, [facility] [id number] [place] [address] 21008- 2923 May, [facility] [id number] [place] [address] 77690- 6303 Apr, [facility] [id number] [place] [address] 43468- 2876 Apr, [facility] [id number] [place] [address] 85723- 9616 Apr, [facility] [id number] [place] [address] 76274- 5467 Apr, [facility] [id number] [place] [address] 41102- 6537 Apr, Pain in right ankle and joints of right foot M25.571 [facility] [id number] [place] [address] 80397- 6488 Apr, [facility] [id number] [place] [address] 17491- 9754 Apr, Bronchitis J40 ; Pain in right ankle and joints of right foot M25.571 ; Other chronic pain G89.29 ; Prediabetes R73.03 ; Chronic obstructive pulmonary disease, unspecified COPD type J44.9 and Cigarette nicotine dependence without complication F17.210 [facility] [address], [place] [address] 13 Apr, 2018 Seasonal allergic rhinitis, unspecified trigger J30.2 [facility] [id number] [place] [address] 73572- 9711 08 Apr, 2018 Onychomycosis B35.1 ; Onychocryptosis L60.0 and DM 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 [place] [id number] [place] [address] 00736- 8373 Apr, Reactive depression F32.9 ; Thoracic myofascial strain, initial encounter S29.019A and Leg cramps R25.2 [place] [address] 90672- 2204 March, [place] [address] 75479- 8128 March, Type 2 diabetes mellitus with hyperglycemia E11.[address] 82866- 0913 March, Reactive depression F32.[address] 19559- 2215 March, Pain in thoracic spine M54.6 and Other chronic pain G89.29 [place] [address] 75809- 1516 Feb, [place] [address] 59652- 1738 Jan, Reactive depression F32.9 ; Essential hypertension I10 ; Gastroesophageal reflux disease, esophagitis presence not specified K21.9 ; Lumbago with sciatica, left side M54.42 and Lumbago with sciatica, right side M54.41 [place] [id number] [place] [address] 01144- 5620 Jan, Reactive depression F32.9 and Pharyngoesophageal dysphagia R13.14 [place] [id number] [place] [address] 74101- 6799 Jan, [place] [address] 31543- 3500 Jan, Encounter for immunization Z23 [facility] [address] 78865- 3607 Jan, Onychomycosis B35.1 and DM 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 [facility] [address] 46356- 7894 Jan, [place] [address] 74646- 3981 Jan, Prediabetes R73.03 [place] [address] 66826- 1045 Dec, [place] [address] 49493- 2276 Dec, Essential hypertension I10 ; Mixed hyperlipidemia E78.2 ; Acquired hypothyroidism E03.9 ; Reactive depression F32.9 and Prediabetes R73.03 [place] [address] 54619- 6407 Dec, [place] [address] 49820- 3784 Dec, [place] [address] 40579- 6638 Dec, DM 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 [facility] [address] 86784 -6514 Dec, Bruise T14.8XXA ; Type 2 diabetes mellitus with hyperglycemia E11.65 and 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 [place] [address] 99261- 3887 Oct, [place] [address] 81681- 5749 March, Onychomycosis B35.1 and DM 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 [place] [address] 18106- 3062 Jun, [facility] [address] [id number] [place] [address]- 5616 Jun, [facility] [address] [id number] [place] [address]- 4529 Jun, COPD with acute exacerbation 491.21 [facility] [address] [id number] [place] [address]- 0619 Apr, [facility] [address] [id number] [place] [address]- 0562 Feb, [facility] [address] [id number] [place] [address]- 9030 Feb, [facility] [address] [id number] [place] [address]- 7797 Jan, [facility] [address] [id number] [place] [address]- 8223 Jan, [facility] [address] [id number] [place] [address]- 5766 Jan, [facility] [address] [id number] [place] [address]- 6394 Jan, [facility] [address] [id number] [place] [address]- 1588 Jan, [facility] [address] [id number] [place] [address]- 6629 Jan, [facility] [address] [id number] [place] [address]- 4395 Jan, [facility] [address] [id number] [place] [address]- 7008 Jan, [facility] [address] [id number] [place] [address]- 2504 Jan, [facility] [address] [id number], [place] [address]- 4828 Jan, [facility] [place] [facility] [address] [id number] [place] [address]- 3004 19 Jan, 2014 [facility] [place] [facility] [address] [id number] [place] [address]- 9704 18 Jan, 2014 [facility] [place] [facility] [address] [id number] [place] [address]- 1828 18 Jan, 2014 [facility] [place] [facility] [address] [id number] [place] [address]- 3536 16 Jan, 2014 [facility] [place] [facility] [address] [id number] [place] [address]- 9636 16 Jan, 2014 [facility] [place] [facility] [address] [id number] [place] [address]- 4099 16 Jan, 2014 [facility] [place] [facility] [address] [id number] [place] [address]- 0033 16 Jan, 2014 [facility] [place] [facility] [address] [id number] [place] [address]- 4054 15 Jan, 2014 [facility] [place] [facility] [address] [id number] [place] [address]- 7788 13 Jan, 2015 [facility] [place] [facility] [address] [id number] [place] [address]- 5713 13 Jan, 2014 [facility] [place] [facility] [address] [id number] [place] [address]- 3536 13 Jan, 2014 [facility] [place] [facility] [address] [id number] [place] [address]- 3742 13 Jan, 2014 [facility] [place] [facility] [address] [id number] [place] [address]- 1752 12 Jan, 2015 [facility] [place] [facility] [address] [id number] [place] [address]- 1252 04 Jan, 2014 [facility] [place] [facility] [address] [id number] [place] [address]- 6388 04 Jan, 2015 [facility] [place] [facility] [address] [id number] [place] [address]- 4578 Dec, 2014 [facility] [place] [facility] [address] [id number] [place] [address]- 0731 Dec, 2014 [facility] [place] [facility] [address] [id number] [place] [address]- 9106 Dec, 2014 [facility] [place] [facility] [address] [facility] [id number] [place] [address]- 1778 Dec, 2014 [facility] [place] [facility] [address] [id number] [place] [address]- 4205 Dec, 2014 [facility] [place] [facility] [address] [id number] [place] [address]- 5173 Dec, 2014 [facility] [place] [facility] [address] [facility] [id number] [place] [address]- 0449 Dec, 2014 [facility] [place] [facility] [address] [facility] [id number] [place] [address]- 9292 Dec, 2014 [facility] [place] [facility] [address] [facility] [id number] [place] [address]- 6465 Dec, [facility] [place] [facility] [address] [facility] [id number] [place] [address]- 3111 Dec, 2014 [facility] [place] [facility] [address] [facility] [id number], [place] [address]- 0471 16 Dec, 2014 [facility] [place] [facility] [address] [facility] [id number] [place] [address]- 2546 Dec, 2014 [facility] [place] [facility] [address] [facility] [id number], [place] [address]- 7079 Nov, [facility] [place] [facility] [address] [facility] [id number] [place] [address]- 7300 Nov, [facility] [place] [facility] [address] [facility] [id number] [place] [address]- 7943 Nov, [facility] [place] [facility] [address] [facility] [id number], [place] [address]- 1285 Nov, [facility] [place] [facility] [address] [id number] [place] [address]- 4356 Nov, [facility] [place] [facility] [address] [id number] [place] [address]- 3971 Nov, [facility] [place] [facility] [address] [id number] [place] [address]- 0356 Nov, [facility] [place] [facility] [address] [id number] [place] [address]- 0139 Nov, [facility] [place] [facility] [address] [id number] [place] [address]- 3479 Nov, [facility] [place] [facility] [address] [id number] [place] [address]- 9286 Nov, [facility] [place] [facility] [address] [id number] [place] [address]- 0978 Nov, [facility] [place] [facility] [address] [id number] [place] [address]- 9507 Nov, [facility] [place] [facility] [address] [id number] [place] [address]- 6544 Oct, [facility] [place] [facility] [address] [id number] [place] [address]- 3061 Oct, [facility] [place] [facility] [address] [id number] [place] [address]- 5793 Oct, [facility] [place] [facility] [address] [id number], [place] [address]- 5872 Oct, [facility] [place] [facility] [address] [id number] [place] [address]- 2496 Oct, [facility] [place] [facility] [address] [id number] [place] [address]- 2971 Oct, [facility] [place] [facility] [address] [id number] [place] [address]- 7731 Oct, [facility] [place] [facility] [address] [id number], [place] [address]- 8275 23 Oct, 2014 [facility] [place] [facility] [address] [id number] [place] [address]- 1719 17 Oct, 2014 [facility] [place] [facility] [address] [id number] [place] [address]- 3933 17 Oct, 2014 [facility] [place] [facility] [address] [id number] [place] [address]- 9728 16 Oct, 2014 [facility] [place] [facility] [address] [id number] [place] [address]- 4571 16 Oct, 2014 [facility] [place] [facility] [address] [id number] [place] [address]- 1469 15 Oct, 2014 [facility] [place] [facility] [address] [id number] [place] [address]- 4766 15 Oct, 2014 [facility] [place] [facility] [address] [facility] [id number] [place] [address]- 1799 Oct, [facility] [place] [facility] [address] [id number] [place] [address]- 2763 Sep, [facility] [place] [facility] [address] [id number] [place] [address]- 6901 Sep, [facility] [place] [facility] [address] [facility] [id number] [place] [address]- 1142 Sep, [facility] [place] [facility] [address] [id number], [place] [address]- 6360 Sep, [facility] [place] [facility] [address] [id number], [place] [address]- 8521 Aug, [facility] [place] [facility] [address] [id number] [place] [address]- 0885 Aug, [facility] [place] [facility] [address] [facility] [id number] [place] [address]- 7238 Aug, [facility] [place] [facility] [address] [facility] [id number] [place] [address]- 1313 Aug, [facility] [place] [facility] [address] [id number] [place] [address]- 3725 07 Aug, 2014 [facility] [place] [facility] [address] [id number] [place] [address]- 1227 07 Aug, 2014 [facility] [place] [facility] [address] [id number] [place] [address]- 1146 29 Jul, 2013 [facility] [place] [facility] [address] [id number] [place] [address]- 1846 29 Jul, 2013 [facility] [place] [facility] [address] [id number] [place] [address]- 0025 15 Jul, 2014 [facility] [place] [facility] [address] [id number] [place] [address]- 7083 15 Jul, 2014 [facility] [place] [facility] [address] [id number] [place] [address]- 6440 08 Jul, 2014 [facility] [place] [facility] [address] [id number] [place] [address]- 1594 Jul, [facility] [place] [facility] [address] [id number] [place] [address]- 4040 Jun, [facility] [place] [facility] [address] [id number] [place] [address]- 0528 Jun, [facility] [place] [facility] [address] [id number] [place] [address]- 3724 Jun, [facility] [place] [facility] [address] [id number] [place] [address]- 8659 Jun, [facility] [place] [facility] [address] [id number] [place] [address]- 0152 Jun, [facility] [place] [facility] [address] [id number] [place] [address]- 5743 Jun, [facility] [place] [facility] [address] [id number] [place] [address]- 2926 Jun, [facility] [place] [facility] [address] [id number] [place] [address]- 6086 May, [facility] [place] [facility] [address] [id number] [place] [address]- 0892 May, [facility] [place] [facility] [address] [id number] [place] [address]- 4557 May, [facility] [place] [facility] [address] [id number] [place] [address]- 5182 May, [facility] [place] [facility] [address] [id number] [place] [address]- 8644 May, [facility] [place] [facility] [address] [id number] [place] [address]- 7435 May, [facility] [place] [facility] [address] [id number] [place] [address]- 6392 May, [facility] [place] [facility] [address] [id number] [place] [address]- 1413 May, [facility] [place] [facility] [address] [id number] [place] [address]- 2130 May, [facility] [place] [facility] [address] [id number] [place] [address]- 6389 May, [facility] [place] [facility] [address] [id number] [place] [address]- 6856 May, [facility] [place] [facility] [address] [id number] [place] [address]- 4985 May, [facility] [place] [facility] [address] [id number] [place] [address]- 6236 Apr, [facility] [place] [facility] [address] [id number] [place] [address]- 6146 Apr, [facility] [place] [facility] [address] [id number] [place] [address]- 4642 Apr, [facility] [place] [facility] [address] [id number] [place] [address]- 3531 Apr, [facility] [place] [facility] [address] [id number] [place] [address] Apr, [facility] [place] [facility] [address] [id number] [place] [address] Apr, [facility] [place] [facility] [address] [id number] [place] [address] Apr, [facility] [place] [facility] [address] [id number] [place] [address] Apr, [facility] [place] [facility] [address] [id number] [place] [address] Apr, [facility] [place] [facility] [address] [id number] [place] [address] Apr, [facility] [place] [facility] [address] [id number] [place] [address] March, [facility] [place] [facility] [address] [id number] [place] [address] March, [facility] [place] [facility] [address] [id number] [place] [address] March, [facility] [place] [facility] [address] [id number] [place] [address] March, [facility] [place] [facility] [address] [id number] [place] [address] March, [facility] [place] [facility] [address] [id number] [place] [address] March, [facility] [place] [facility] [address] [id number] [place] [address] Feb, [facility] [place] [facility] [address] [id number] [place] [address] Feb, [facility] [place] [facility] [address] [id number] [place] [address] Feb, [facility] [place] [facility] [address] [id number] [place] [address] Feb, [facility] [place] [facility] [address] [id number] [place] [address] Feb, [facility] [place] [facility] [address] [id number] [place] [address]- [address] Feb, [facility] [place] [facility] [address] [id number] [place] [address] Feb, [facility] [place] [facility] [address] [id number] [place] [address]- [address] Feb, [facility] [place] [facility] [address] [id number] [place] [address] Feb, [facility] [place] [facility] [address] [id number] [place] [address] Feb, [facility] [place] [facility] [address] [id number] [place] [address] Jan, [facility] [place] [facility] [address] [id number] [place] [address] Jan, [facility] [place] [facility] [address] [id number] [place] [address] Jan, [facility] [place] [facility] [address] [id number] [place] [address] Jan, [facility] [place] [facility] [address] [id number] [place] [address] Jan, [facility] [place] [facility] [address] [id number] [place] [address] Jan, [facility] [place] [facility] [address] [id number] [place] [address] Jan, [facility] [place] [facility] [address] [id number] [place] [address] Jan, [facility] [place] [facility] [address] [id number] [place] [address] Dec, [facility] [place] [facility] [address] [id number] [place] [address] Dec, [facility] [place] [facility] [address] [id number] [place] [address] Dec, [facility] [place] [facility] [address] [id number] [place] [address] Dec, [facility] [place] [facility] [address] [id number] [place] [address] Dec, [facility] [place] [facility] [address] [id number] [place] [address] Dec, [facility] [place] [facility] [address] [id number] [place] [address] Dec, [facility] [place] [facility] [address] [id number] [place] [address] Dec, [facility] [place] [facility] [address] [id number] [place] [address] Nov, [facility] [place] [facility] [address] [id number] [place] [address] Nov, [facility] [place] [facility] [address] [id number] [place] [address] Nov, [facility] [place] [facility] [address] [id number] [place] [address] Nov, [facility] [place] [facility] [address] [id number] [place] [address] Nov, [facility] [place] [facility] [address] [id number] [place] [address] Nov, [facility] [place] [facility] [address] [id number] [place] [address] Nov, [facility] [place] [facility] [address] [id number] [place] [address] 1214 Nov, [facility] [place] [facility] [address] [id number] [place] [address] 6166 Nov, [facility] [place] [facility] [address] [id number] [place] [address] 8973 Nov, [facility] [place] [facility] [address] [id number] [place] [address] 2135 Nov, [facility] [place] [facility] [address] [id number] [place] [address] 6742 Oct, [facility] [place] [facility] [address] [id number] [place] [address] 1127 Oct, [facility] [place] [facility] [address] [id number] [place] [address] 6291 Oct, [facility] [place] [facility] [address] [id number] [place] [address]- 6785 Oct, [facility] [place] [facility] [address] [id number] [place] [address] 7485 Sep, [facility] [place] [facility] [address] [id number] [place] [address]- 1641 Sep, [facility] [place] [facility] [address] [id number] [place] [address] 4005 Sep, [facility] [place] [facility] [address] [id number] [place] [address]- 9484 Sep, [facility] [place] [facility] [address] [id number] [place] [address]- 7271 Aug, [facility] [place] [facility] [address] [id number] [place] [address] 6054 Aug, [facility] [place] [facility] [address] [id number] [place] [address]- 6697 Aug, [facility] [place] [facility] [address] [id number] [place] [address]- 1280 Aug, [facility] [place] [facility] [address] [id number] [place] [address]- 0038 Aug, [facility] [place] [facility] [address] [id number], [place] [address]- 7070 24 Aug, 2013 [facility] [place] [facility] [address] [id number] [place] [address]- 6943 04 Aug, 2013 [facility] [place] [facility] [address] [id number] [place] [address]- 3455 Aug, [facility] [place] [facility] [address] [id number] [place] [address]- 0935 28 Jul, 2012 [facility] [place] [facility] [address] [id number], [place] [address] 27 Jul, 2012 [facility] [place] [facility] [address] [id number] [place] [address]- 1567 26 Jul, 2012 [facility] [place] [facility] [address] [id number] [place] [address]- 4335 24 Jul, 2012 [facility] [place] [facility] [address] [id number] [place] [address]- 0415 24 Jul, 2012 [facility] [place] [facility] [address] [id number] [place] [address]- 1154 23 Jul, 2012 [facility] [place] [facility] [address] [id number] [place] [address]- 1339 19 Jul, 2012 [facility] [place] [facility] [address] [id number] [place] [address]- 9240 18 Jul, 2012 [facility] [place] [facility] [address] [id number], [place] [address]- 0[address] 17 Jul, 2012 [facility] [place] [facility] [address] [id number], [place] [address]- 2325 16 Sep, 2012 [facility] [place] [facility] [address] [id number] [place] [address] 2549 13 Sep, 2012 [facility] [place] [facility] [address] [id number] [place] [address]- 2549 13 Sep, 2012 [facility] [place] [facility] [address] [id number], [place] [address]- 2542 12 Sep, 2012 [facility] [place] [facility] [address] [id number] [place] [address]- 7448 Jul, [facility] [address] [id number] [place] [address] 4977 Jul, [facility] [address] [id number] [place] [address]- 2546 Jun, [facility] [address] [id number] [place] [address]- 7096 Jun, [facility] [address] [id number] [place] [address] 2796 Jun, [facility] [address] [id number] [place] [address] 9004 May, [facility] [address] [id number] [place] [address]- 5364 May, [facility] [address] [id number] [place] [address]- 6436 May, [facility] [address] [id number] [place] [address]- 9702 May, [facility] [address] [id number] [place] [address]- 7420 Apr, [facility] [address] [id number] [place] [address]- 2252 Apr, [facility] [place] [facility] [address] [id number] [place] [address] Apr, [facility] [address] [id number] [place] [address]- 2540 Apr, [facility] [place] [facility] [address] [id number] [place] [address]- 6217 March, [facility] [place] [facility] [address] [id number] [place] [address]- 2546 March, [facility] [address] [id number] [place] [address]- 1698 March, [facility] [address] [id number] [place] [address]- 7042 Feb, [facility] [place] [facility] [address] [id number] [place] [address]- 7406 Feb, [facility] [place] [facility] [address] [id number] [place] [address]- 4993 Jan, [facility] [place] [facility] [address] [id number] [place] [address]- 6546 Jan, [facility] [address] [id number] [place] [address]- 7244 Jan, [facility] [place] [facility] [address] [id number] [place] [address]- 9556 Jan, [facility] [address] [id number] [address] Jan, [facility] [address] [id number] [place] [address]- 3796 Dec, [facility] [place] [facility] [address] [id number] [place] [address]- 5482 Dec, [facility] [place] [facility] [address] [facility] [id number] [place] [address]- 7200 Dec, [facility] [place] [facility] [address] [facility] [id number] [place] [address]- 6046 Dec, [facility] [place] [facility] [address] [id number], [place] [address]- 1236 Dec, [facility] [place] [facility] [address] [id number] [place] [address]- 4356 Dec, [facility] [place] [facility] [address] [id number], [place] [address]- 5876 Dec, [facility] [place] [facility] [address] [id number] [place] [address] 3726 Dec, [facility] [place] [facility] [address] [id number] [place] [address]- 0252 30 Nov, 2012 [facility] [address] [id number] [place] [address]- 0878 Nov, [facility] [address] [id number] [place] [address]- 1826 Nov, [facility] [address] [id number] [place] [address]- 3412 Nov, [facility] [address] [id number] [place] [address]- 2601 Nov, [facility] [address] [id number] [place] [address]- 4656 Nov, [facility] [address] [id number] [place] [address]- 0675 Nov, [facility] [address] [id number] [place] [address]- 6696 Oct, [facility] [address] [id number] [place] [address]- 4582 Oct, [facility] [address] [id number] [place] [address]- 2183 Oct, [facility] [address] [id number] [place] [address]- 4629 Oct, [facility] [address] [id number] [place] [address] 2546 Oct, [facility] [address] [id number] [place] [address]- 0281 Oct, [facility] [address] [id number] [place] [address]- 9557 Oct, [facility] [address] [id number] [place] [address]- 6152 Oct, [facility] [address] [id number] [place] [address]- 5250 Sep, [facility] [place] [facility] [address] [id number] [place] [address]- 7472 Sep, [facility] [place] [facility] [address] [id number] [place] [address]- 3521 Sep, [facility] [place] [facility] [address] [id number] [place] [address]- 0834 Sep, [facility] [place] [facility] [address] [id number] [place] [address]- 3710 Sep, [facility] [place] [facility] [address] [id number] [place] [address]- 9426 Sep, [facility] [place] [facility] [address] [id number] [place] [address]- 6505 Sep, [facility] [place] [facility] [address] [id number] [place] [address]- 2154 Sep, [facility] [place] [facility] [address] [id number], [place] [address]- 6229 Sep, [facility] [place] [facility] [address] [id number] [place] [address]- 0990 Sep, [facility] [place] [facility] [address] [id number], [place] [address]- 2669 Sep, [facility] [place] [facility] [address] [facility] [id number], [place] [address]- 3046 Sep, [facility] [place] [facility] [address] [id number], [place] [address]- 3964 Sep, [facility] [place] [facility] [address] [id number], [place] [address]- 9532 Sep, [facility] [place] [facility] [address] [id number], [place] [address]- 4488 Sep, [facility] [place] [facility] [address] [facility] [id number], [place] [address]- 8704 Sep, [facility] [place] [facility] [address] [id number], [place] [address]- 4752 Sep, [facility] [place] [facility] [address] [id number] [place] [address]- 9203 Sep, [facility] [place] [facility] [address] [id number] [place] [address]- 4854 Sep, [facility] [place] [facility] [address] [facility] [id number] [place] [address]- 1394 Sep, [facility] [place] [facility] [address] [id number] [place] [address]- 2776 Aug, [facility] [place] [facility] [id number] [place] [address], [place] [address]- 7402 31 Aug, 2012 [facility] [place] [facility] [address] [facility] [id number] [place] [address]- 0055 29 Aug, 2012 [facility] [place] [facility] [address] [facility] [id number] [place] [address]- 5933 Aug, [facility] [place] [facility] [address] [facility] [id number] [place] [address]- 0672 27 Aug, 2012 [facility] [place] [facility] [address] [facility] [id number], [place] [address]- 5452 18 Aug, 2012 [facility] [place] [facility] [address] [facility] [id number], [place] [address]- 4593 18 Aug, 2012 [facility] [place] [facility] [address] [facility] [id number], [place] [address]- 8606 17 Aug, 2012 [facility] [place] [facility] [address] [facility] [id number], [place] [address]- 3753 16 Aug, 2012 [facility] [place] [facility] [address] [facility] [id number], [place] [address]- 2333 16 Aug, 2012 [facility] [place] [facility] [address] [facility] [id number], [place] [address]- 9810 15 Aug, 2012 [facility] [place] [facility] [address] [facility] [id number], [place] [address]- 1781 09 Aug, 2012 [facility] [place] [facility] [address] [id number] [place] [address]- 7456 Aug, [facility] [place] [facility] [address] [id number] [place] [address]- 8069 Aug, [facility] [place] [facility] [address] [id number] [place] [address]- 2546 Aug, [facility] [place] [facility] [address] [id number] [place] [address]- 2916 14 Jul, 2012 [facility] [place] [facility] [address] [id number] [place] [address]- 0958 Jul, [facility] [place] [facility] [address] [id number] [place] [address]- 4932 Jun, [facility] [place] [facility] [address] [id number] [place] [address]- 1504 Jun, [facility] [place] [facility] [address] [id number] [place] [address]- 5150 May, [facility] [place] [facility] [address] [id number] [place] [address]- 8814 May, [facility] [place] [facility] [address] [id number] [place] [address]- 5719 May, [facility] [place] [facility] [address] [id number] [place] [address]- 1312 May, [facility] [place] [facility] [address] [id number] [place] [address]- 8485 May, [facility] [place] [facility] [address] [id number] [place] [address]- 3849 May, [facility] [place] [facility] [address] [id number] [place] [address]- 5914 Apr, [facility] [place] [facility] [address] [id number] [place] [address]- 7426 Apr, [facility] [place] [facility] [address] [id number] [place] [address]- 1224 March, [facility] [address] [id number] [place] [address]- 6147 March, [facility] [place] [facility] [address] [id number] [place] [address]- 5177 March, [facility] [place] [facility] [address] [id number] [place] [address]- 9539 March, [facility] [place] [facility] [address] [id number] [place] [address]- 3627 March, [facility] [address] [id number] [place] [address]- 8543 March, [facility] [place] [facility] [address] [id number] [place] [address]- 2285 Feb, [facility] [place] [facility] [address] [id number] [place] [address]- 5750 Feb, [facility] [place] [facility] [address] [id number] [place] [address]- 1439 Feb, [facility] [place] [facility] [address] [id number] [place] [address]- 0550 Feb, [facility] [place] [facility] [address] [id number] [place] [address]- 8959 Feb, [facility] [place] [facility] [address] [id number] [place] [address]- 0201 Feb, [facility] [place] [facility] [address] [id number] [place] [address]- 5774 Feb, [facility] [place] [facility] [address] [id number] [place] [address]- 9551 Feb, [facility] [place] [facility] [address] [id number] [place] [address]- 7179 04 Feb, 2012 [facility] [place] [facility] [address] [id number] [place] [address]- 1315 Jan, [facility] [place] [facility] [address] [id number] [place] [address]- 4220 27 Jan, 2012 [facility] [address] [id number] [place] [address]- 7726 26 Jan, 2012 [facility] [place] [facility] [address] [id number] [place] [address]- 4446 22 Jan, 2012 [facility] [place] [facility] [address] [id number] [place] [address]- 7046 21 Jan, 2012 [facility] [place] [facility] [address] [id number] [place] [address]- 1126 20 Jan, 2012 [facility] [place] [facility] [address] [id number] [place] [address]- 9362 14 Jan, 2012 [facility] [place] [facility] [address] [id number] [place] [address]- 2286 09 Jan, 2012 [facility] [address] [id number] [place] [address]- 2598 09 Jan, 2012 [facility] [place] [facility] [address] [id number] [place] [address]- 2288 08 Jan, 2012 [facility] [place] [facility] [address] [id number] [place] [address]- 0855 07 Jan, 2012 [facility] [place] [facility] [address] [id number] [place] [address]- 6756 06 Jan, 2012 [facility] [place] [facility] [address] [id number] [place] [address]- 8176 02 Jan, 2012 [facility] [place] [facility] [address] [id number] [place] [address]- 0149 Jan, [facility] [place] [facility] [address] [id number] [place] [address]- 7613 28 Dec, 2011 [facility] [place] [facility] [address] [id number] [place] [address]- 0816 Dec, [facility] [place] [facility] [address] [id number] [place] [address]- 8745 Dec, [facility] [place] [facility] [address] [id number] [place] [address]- 5403 Dec, [facility] [place] [facility] [address] [id number] [place] [address]- 5506 Dec, [facility] [address] [id number] [place] [address] 2546 Dec, [facility] [place] [facility] [address] [id number] [place] [address] 2548 Dec, [facility] [address] [id number] [place] [address]- 5877 Dec, [facility] [place] [facility] [address] [id number] [place] [address]- 7262 Dec, [facility] [address] [facility] [id number] [place] [address]- 5007 Nov, [facility] [place] [facility] [address] [id number] [place] [address]- 2014 Nov, [facility] [address] [id number] [place] [address]- 5609 Nov, [facility] [address] [facility] [id number] [place] [address]- 7062 Nov, [facility] [address] [id number], [place] [address]- 0433 Oct, [facility] [place] [facility] [address] [id number], [place] [address]- 2548 Oct, [facility] [place] [facility] [address] [id number] [place] [address] 2546 Oct, [facility] [place] [facility] [address] [id number] [place] [address]- 4717 Oct, [facility] [place] [facility] [address] [id number] [place] [address]- 0696 Oct, [facility] [place] [facility] [address] [id number] [place] [address]- 2229 Oct, [facility] [place] [facility] [address] [id number] [place] [address]- 9959 Oct, [facility] [place] [facility] [address] [id number] [place] [address]- 6241 Sep, [facility] [place] [facility] [address] [id number] [place] [address]- 6309 Sep, [facility] [place] [facility] [address] [id number] [place] [address]- 2136 Sep, [facility] [place] [facility] [address] [id number] [place] [address] Sep, [facility] [place] [facility] [address] [id number] [place] [address] Sep, [facility] [place] [facility] [address] [id number] [place] [address] Sep, [facility] [place] [facility] [address] [id number] [place] [address] Sep, [facility] [place] [facility] [address] [id number] [place] [address] Sep, [facility] [place] [facility] [address] [facility] [id number] [place] [address] Sep, [facility] [place] [facility] [address] [id number] [place] [address] Aug, [facility] [place] [facility] [address] [id number] [place] [address] Aug, [facility] [place] [facility] [address] [id number] [place] [address] Aug, [facility] [place] [facility] [address] [id number] [place] [address] May, [facility] [place] [facility] [address] [id number] [place] [address] Nov, [facility] [place] [facility] [address] [id number] [place] [address] Oct, [facility] [address] [id number] [place] [address] Oct, [facility] [address] [id number] [place] [address] Oct, [facility] [address] [id number] [place] [address] Oct, [facility] [address] [id number] [place] [address] Oct, [facility] [address] [id number] [place] [address] Sep, [facility] [address] [id number] [place] [address] Sep, [facility] [address] [id number] [place] [address] Jul, [facility] [address] [id number] [place] [address] Oct, [facility] [address] [id number] [place] [address] Oct, [facility] [address] [id number] [place] [address] Oct, [facility] [address] [id number], [place] [address] Oct, [facility] [address] [id number] [place] [address] Sep, [facility] [place] [facility] [address] [id number] [place] [address] Sep, [facility] [place] [facility] [address] [id number] [place] [address] Sep, [facility] [address] [id number], [place] [address] Sep, [facility] [address] [facility] [id number], [place] [address] Sep, [facility] [address] [facility] [id number], [place] [address] Jul, [facility] [address] [facility] [id number], [place] [address] Apr, [place] [address] [facility] [id number], [place] [address] Dec, IMMUNIZATIONS No Known Immunizations SOCIAL HISTORY Never Assessed REASON FOR VISIT Cough w/o production x2days - seble vuong , headache/ ears hurt / throat x 2days KPage JENNIFFER , no nausea/ diarrhea KPage JENNIFFER , thinks she has kidney infection - poss uti- says buring and hurting urinating x2days KPadrew Vuong PLAN OF CARE Activity Details Follow Up 3 Months Reason: VITAL SIGNS Height 67 in 2018-11-01 Temperature 96.9 degrees Fahrenheit 2018-11-01 Heart Rate 85 bpm 2018-11-01 Respiratory Rate 20 2018-11-01 Blood pressure systolic 128 mmHg 2018-11-01 Blood pressure diastolic 76 mmHg 2018-11-01 MEDICATIONS Medication Instructions Dosage Frequency Start Date End Date Duration Status Ferrous Sulfate 325 (65 Fe) MG Orally twice a day 1 tablet 12h Jun, 30 day(s) Active ProAir HFA 90 mcg/actuation inhale 2 puffs by Inhalation route every 4 hours as needed PRN shortness of breath/cough March, Active Protonix 40 MG Orally Once a day 1 tablet 24h 30 Active Trazodone HCl 100 mg Orally Once a day 1 tablet at bedtime 24h 30 Active Anoro Ellipta 62.5-25 MCG/INH Inhalation Once a day 1 puff 24h Sep, Active Albuterol Sulfate (2.5 MG/3ML) 0.083% Inhalation Three times a day 3 ml as needed 8h Aug, Active Test strips Test Strips subcutaneously 2 times a day, accucheck christiano 1 test strip Dec, Active Lisinopril 5 MG Orally Once a day 1 tablet 24h Active Metformin HCl 500 mg Orally Twice a day 1 tablet with meals 12h 30 Active Levothyroxine Sodium 50 MCG TAKE ONE (1) TABLET BY MOUTH ONCE DAILY 90 Active Prozac 40 mg Orally Once a day 1 capsule 24h 30 Active Cyclobenzaprine HCl 10 mg Orally Three times a day 1 tablet as needed 8h 10 Active Atorvastatin Calcium 40 MG TAKE ONE TABLET BY MOUTH DAILY 90 Active Tramadol HCl 50 mg Orally 3 times a day 1 tablet as needed 8h 08 Mar, 2018 Active Gabapentin 600 MG Orally Once a day 1 capsule before bedtime 24h Active Naprosyn 500 mg Orally 2 times a day 1 tablet with food or milk as needed 12h 30 Active Amlodipine Besylate 5 MG TAKE ONE (1) TABLET BY MOUTH ONCE DAILY 30 Active Oxygen 2 L/NC by inhalation route at bedtime Active Hydrocodone-Acetaminophen 10-325 MG Orally every 6 hrs 1 tablet as needed 6h Active Gabapentin 300 MG TAKE TWO CAPSULES BY MOUTH THREE TIMES A DAY 90 Active Flonase 50 MCG/ACT Nasally twice a day 1 spray in each nostril 12h 13 Apr, 2018 30 day(s) Active Cipro 500 MG Orally 2 times a day 1 tablet 12h Oct, 5 days Active RESULTS Name Result Date Reference Range UA LONG DIP (IN HOUSE) 2018-11-01 Lot # [id number] Exp date 06/29/19 Clarity slightly cloudy Color yellow Odor none GLU neg PRETTY neg KET neg SG 1.015 BLO trace pH 6.0 Protein neg URO 0.2 NIT pos SANJIV 3+ Lot # Exp date PROCEDURES Procedure Date Ordered Result Body Site URINALYSIS, AUTO, W/O SCOPE Nov 01, 2018 INSTRUCTIONS MEDICATIONS ADMINISTERED No Known Medications MEDICAL (GENERAL) HISTORY Type Description Date Medical History hypertension Medical History hyperlipidemia Medical History diabetes type II Medical History COPD Medical History asthma Medical History rt foot amputated Surgical History hysterectomy Surgical History arthritis surgery Surgical History rt foot amputation 08/20/18 Hospitalization History surgeries Hospitalization History rt foot amputation 08/20/18
[2018-11-26 15:38] LABS: COLOR,URINE YELLOW
--- OUTSIDE RECORDS SUMMARY | 2018-11-26 15:38 | XMS REPORT ---
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 Name Role Phone KING FISHMAN Unavailable PROBLEMS Type Condition ICD9-CM Code UOZ33-AR Code Onset Dates Condition Status SNOMED Code Problem Lumbago with sciatica, left side M54.42 Active 918990328 Problem Other chronic pain G89.29 Active 61833813 Problem Lumbago with sciatica, right side M54.41 Active [id number] Problem Seasonal allergies J30.2 Active 181074630 Problem Iron deficiency anemia due to chronic blood loss D50.0 Active 279411974 Problem Cigarette nicotine dependence without complication F17.210 Active 07563623 Problem Chronic obstructive pulmonary disease, unspecified COPD type J44.9 Active 42441163 Problem Seizures R56.9 Active 44410852 Problem DM 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 Active 39869976 Problem Essential hypertension I10 Active 04893972 Problem Acquired hypothyroidism E03.9 Active 210617623 Problem Mixed hyperlipidemia E78.2 Active 321758789 Problem Reactive depression F32.9 Active 28586750 Problem Prediabetes R73.03 Active 656980676 Problem Gastroesophageal reflux disease, esophagitis presence not specified K21.9 Active 691956984 ALLERGIES No Information ENCOUNTERS Encounter Location Date Diagnosis [facility] [place] [id number] [place] [address] 76585- 1883 07 Oct, 2018 [place] [id number] [place] [id number] [place] [address] 91155- 2092 14 Sep, 2018 Pain in thoracic spine M54.6 [facility] [place] [address] [address] 54[address] 09 Sep, 2018 Type 2 diabetes mellitus with hyperglycemia E11.65 [place] [address] [place] [id number] [place] [address] 65942- 9489 Sep, Chronic obstructive pulmonary disease, unspecified COPD type J44.9 ; Abrasion of right ear canal, initial encounter S00.411A ; Cigarette nicotine dependence without complication F17.210 ; Right leg pain M79.604 and Seasonal allergies J30.2 [place] [address] [place] [address] [id number] [place] [address] 13993- 3944 Aug, [place] [address] 77967- 5447 Aug, [place] [address] [place] [id number] [place] [address] 69285- 7415 Aug, Pain in thoracic spine M54.6 [place] [address] 07362- 1952 Aug, [place] [address] 83559- 8523 Aug, Chronic obstructive pulmonary disease, unspecified COPD type J44.9 ; Complete amputation of right foot, 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 ; Cigarette nicotine dependence without complication F17.210 and BMI 40.0-44.9, adult Z68.41 [place] [address] [place] [address] [id number] [place] [address] 83226- 2719 Jul, [place] [address] [place] [address] [id number] [place] [address] 45142- 2338 Jul, [place] [address] 34363- 4628 Jul, Onychomycosis B35.1 ; Onychocryptosis L60.0 and DM 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 [place] [address] [address] [id number] [place] [address] 48357- 3453 Jun, Pain in thoracic spine M54.6 [place] [address] [address] [id number] [place] [address] 24044- 7330 Jun, Iron deficiency anemia due to chronic blood loss D50.0 and Hematochezia K92.1 [facility] [place] [id number] [place] [address] 27629- 4583 Jun, Gastroenteritis K52.9 and Abnormal RBC indices R71.8 [facility] [place] [id number] [place] [address] 21220- 0616 Jun, [facility] [place] [address] [address]59 2546 Jun, Chest congestion R09.89 and Seizures R56.9 [facility] [place] [address] 89659- 3736 May, Pain in thoracic spine M54.6 [facility] [place] [address] 52844- 7046 May, [facility] [place] [address] 56777- 6675 May, [facility] [place] [address] 26473- 4571 May, [facility] [place] [address] 18459- 0562 May, Acute non-recurrent frontal sinusitis J01.10 and Dermatitis L30.9 [facility] [place] [id number] [place] [address] 22839 254 May, [facility] [place] [id number] [place] [address] 29966 2547 May, Pain in thoracic spine M54.6 [facility] [place] [id number] [place] [address] 01392 2545 May, [facility] [place] [address] 21294- 2546 May, Acute nasopharyngitis J00 [facility] [place] [id number] [place] [address] 76011- 2546 May, [facility] [place] [address] [place] [address]- 9515 May, [facility] [place] [address] 48502- 8586 Apr, [facility] [place] [address] 35857- 2480 Apr, [facility] [place] [address] 29841- 5531 Apr, [facility] [place] [address] 97558- 2895 Apr, [place] [address] 91122- 2715 Apr, Pain in right ankle and joints of right foot M25.571 [place] [address] 79738- 2423 Apr, [place] [address] 84146- 4403 Apr, Bronchitis J40 ; Pain in right ankle and joints of right foot M25.571 ; Other chronic pain G89.29 ; Prediabetes R73.03 ; Chronic obstructive pulmonary disease, unspecified COPD type J44.9 and Cigarette nicotine dependence without complication F17.210 [facility] [address] 71836 -5412 Apr, Seasonal allergic rhinitis, unspecified trigger J30.2 [place] [address] 64665- 3431 08 Apr, 2018 Onychomycosis B35.1 ; Onychocryptosis L60.0 and DM 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 [place] [address] 76479- 8380 Apr, Reactive depression F32.9 ; Thoracic myofascial strain, initial encounter S29.019A and Leg cramps R25.2 [facility] [place] [address] 16264- 4998 March, [place] [address] [place] [address] [id number] [place] [address] 44035- 4817 March, Type 2 diabetes mellitus with hyperglycemia E11.65 [place] [address] [address] [id number] [place] [address] 71625- 9274 March, Reactive depression F32.9 [place] [address] 86015- 5201 March, Pain in thoracic spine M54.6 and Other chronic pain G89.29 [place] [address] 37932- 0672 Feb, [place] [address] 67264- 2440 Jan, Reactive depression F32.9 ; Essential hypertension I10 ; Gastroesophageal reflux disease, esophagitis presence not specified K21.9 ; Lumbago with sciatica, left side M54.42 and Lumbago with sciatica, right side M54.41 [place] [address] 02228- 1847 Jan, Reactive depression F32.9 and Pharyngoesophageal dysphagia R13.14 [place] [address] [place] [address] [id number] [place] [address] 03751- 8925 Jan, [place] [address] 97860- 3890 Jan, Encounter for immunization Z23 [place] [address] [place] [address] [id number] [place] [address] 92572- 5450 Jan, Onychomycosis B35.1 and DM 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 [place] [address] 38751- 9994 Jan, [place] [address] 64539- 0412 Jan, Prediabetes R73.03 [place] [address] [address] [id number] [place] [address] 83014- 9196 Dec, [facility] [place] [address] 81567- 5671 Dec, Essential hypertension I10 ; Mixed hyperlipidemia E78.2 ; Acquired hypothyroidism E03.9 ; Reactive depression F32.9 and Prediabetes R73.03 [facility] [place] [address] 14179- 4208 Dec, [facility] [place] [address] 73128- 7540 Dec, [place] [address] 38846- 0462 Dec, DM 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 [facility] [address] [id number] [place] [address] 01156 -3112 Dec, Bruise T14.8XXA ; Type 2 diabetes mellitus with hyperglycemia E11.65 and rn long term care current use of insulin Z79.4 [place] [address] [place] [address] [id number] [place] [address] 68002- 6732 Oct, [place] [address] [place] [address] [id number] [place] [address] 04433- 1229 March, Onychomycosis B35.1 and DM 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 [place] [address] [place] [address] [id number] [place] [address] 67116- 7328 Jun, [place] [address] [place] [address] [id number] [place] [address] 73161- 0818 Jun, [place] [address] 18326- 9440 Jun, COPD with acute exacerbation 491.21 [place] [address] [place] [address] [id number] [place] [address] 06842- 5672 Apr, [facility] [place] [address] 67579- 5003 14 Feb, 2015 [facility] [place] [facility] [address] [id number] [place] [address]- 5803 13 Feb, 2015 [facility] [place] [facility] [address] [id number] [place] [address]- 5131 26 Jan, 2015 [facility] [place] [facility] [address] [id number] [place] [address]- 5618 Jan, [facility] [place] [facility] [address] [id number] [place] [address]- 6030 Jan, [facility] [place] [facility] [address] [id number] [place] [address]- 8506 Jan, [facility] [place] [facility] [address] [id number] [place] [address]- 1581 Jan, [facility] [place] [facility] [address] [id number] [place] [address]- 1416 Jan, [facility] [place] [facility] [address] [id number] [place] [address]- 3799 Jan, [facility] [place] [facility] [address] [id number] [place] [address]- 4031 Jan, [facility] [place] [facility] [address] [id number] [place] [address]- 2330 Jan, [facility] [place] [facility] [address] [id number] [place] [address]- 1142 19 Jan, 2015 [facility] [place] [facility] [address] [id number] [place] [address]- 4754 19 Jan, 2015 [facility] [place] [facility] [address] [id number] [place] [address]- 0656 18 Jan, 2015 [facility] [place] [facility] [address] [id number] [place] [address]- 8480 18 Jan, 2015 [facility] [place] [facility] [address] [id number] [place] [address]- 9153 16 Jan, 2015 [facility] [place] [facility] [address] [id number] [place] [address]- 1944 16 Jan, 2014 [facility] [place] [facility] [address] [id number] [place] [address]- 5630 16 Jan, 2015 [facility] [place] [facility] [address] [id number] [place] [address]- 6774 16 Jan, 2014 [facility] [place] [facility] [address] [id number] [place] [address]- 9001 15 Jan, 2014 [facility] [place] [facility] [address] [id number] [place] [address]- 4872 13 Jan, 2014 [facility] [place] [facility] [address] [id number] [place] [address]- 2754 13 Jan, 2014 [facility] [place] [facility] [address] [id number] [place] [address]- 9896 13 Jan, 2014 [facility] [place] [facility] [address] [id number] [place] [address]- 1965 13 Jan, 2014 [facility] [place] [facility] [address] [id number] [place] [address]- 7637 12 Jan, 2015 [facility] [place] [facility] [address] [id number] [place] [address]- 0287 04 Jan, 2015 [facility] [place] [facility] [address] [id number] [place] [address]- 2821 04 Jan, 2015 [facility] [place] [facility] [address] [id number] [place] [address]- 5976 24 Dec, 2014 [facility] [place] [facility] [address] [id number] [place] [address]- 8737 24 Dec, 2014 [facility] [place] [facility] [address] [id number] [place] [address]- 3842 24 Dec, 2014 [facility] [place] [facility] [address] [id number] [place] [address]- 3906 24 Dec, 2014 [facility] [place] [facility] [address] [id number] [place] [address]- 6953 Dec, 2014 [facility] [place] [facility] [address] [id number] [place] [address]- 3732 Dec, [facility] [place] [facility] [address] [id number] [place] [address]- 3127 Dec, 2014 [facility] [place] [facility] [address] [id number] [place] [address]- 3153 Dec, 2014 [facility] [place] [facility] [address] [id number] [place] [address]- 7376 Dec, 2014 [facility] [place] [facility] [address] [id number] [place] [address]- 7123 Dec, 2014 [facility] [place] [facility] [address] [facility] [id number] [place] [address]- 5016 16 Dec, 2014 [facility] [place] [facility] [address] [facility] [id number] [place] [address]- 1593 16 Dec, 2014 [facility] [place] [facility] [address] [id number] [place] [address]- 9453 Nov, [facility] [place] [facility] [address] [id number] [place] [address]- 4178 Nov, [facility] [place] [facility] [address] [facility] [id number] [place] [address]- 9467 Nov, [facility] [place] [facility] [address] [facility] [id number] [place] [address]- 2416 Nov, [facility] [place] [facility] [address] [id number], [place] [address]- 3891 Nov, [facility] [place] [facility] [address] [id number], [place] [address]- 5708 Nov, [facility] [place] [facility] [address] [facility] [id number], [place] [address]- 2140 Nov, [facility] [place] [facility] [address] [facility] [id number], [place] [address]- 9049 Nov, [facility] [place] [facility] [address] [id number] [place] [address]- 7654 Nov, [facility] [place] [facility] [address] [id number] [place] [address]- 8662 Nov, [facility] [place] [facility] [address] [id number] [place] [address]- 5807 Nov, [facility] [place] [facility] [address] [id number] [place] [address]- 0953 Nov, [facility] [place] [facility] [address] [id number] [place] [address]- 6496 Oct, [facility] [place] [facility] [address] [id number] [place] [address]- 8711 Oct, [facility] [place] [facility] [address] [id number] [place] [address]- 4067 Oct, [facility] [place] [facility] [address] [id number] [place] [address]- 3852 Oct, [facility] [place] [facility] [address] [id number] [place] [address]- 1456 Oct, [facility] [place] [facility] [address] [id number] [place] [address]- 0159 Oct, [facility] [place] [facility] [address] [id number] [place] [address]- 8507 Oct, [facility] [place] [facility] [address] [id number] [place] [address]- 3149 Oct, [facility] [place] [facility] [address] [id number] [place] [address]- 0339 Oct, [facility] [place] [facility] [address] [id number] [place] [address]- 8718 17 Oct, 2014 [facility] [place] [facility] [address] [id number] [place] [address]- 3125 16 Oct, 2014 [facility] [place] [facility] [address] [id number] [place] [address]- 2083 16 Oct, 2014 [facility] [place] [facility] [address] [id number] [place] 4147 Oct, [facility] [place] [facility] [address] [id number] [place] [address]- 4201 Oct, [facility] [place] [facility] [address] [facility] [id number] [place] [address]- 0248 Oct, [facility] [place] [facility] [address] [id number] [place] [address]- 4683 Sep, [facility] [place] [facility] [address] [id number] [place] [address]- 6834 Sep, [facility] [place] [facility] [address] [id number] [place] [address]- 6256 Sep, [facility] [place] [facility] [address] [id number] [place] [address]- 8278 Sep, [facility] [place] [facility] [address] [id number] [place] [address]- 4758 Aug, [facility] [place] [facility] [address] [id number] [place] [address]- 6644 Aug, [facility] [place] [facility] [address] [id number] [place] [address]- 0179 Aug, [facility] [place] [facility] [address] [id number], [place] [address]- 0870 Aug, [facility] [place] [facility] [address] [id number], [place] [address]- 4098 Aug, [facility] [place] [facility] [address] [id number] [place] [address]- 6759 Aug, [facility] [place] [facility] [address] [id number], [place] [address]- 3873 Jul, [facility] [place] [facility] [address] [id number] [place] [address]- 8433 Jul, [facility] [place] [facility] [address] [id number] [place] [address]- 4695 15 Jul, 2014 [facility] [place] [facility] [address] [id number] [place] [address]- 5466 15 Jul, 2014 [facility] [place] [facility] [address] [id number] [place] [address]- 5016 08 Jul, 2014 [facility] [place] [facility] [address] [id number] [place] [address]- 8747 Jul, [facility] [place] [facility] [address] [id number] [place] [address]- 6728 Jun, [facility] [place] [facility] [address] [id number] [place] [address]- 8328 Jun, [facility] [place] [facility] [address] [id number] [place] [address]- 7871 Jun, [facility] [place] [facility] [address] [id number] [place] [address]- 4289 Jun, [facility] [place] [facility] [address] [id number] [place] [address]- 9981 Jun, [facility] [place] [facility] [address] [id number] [place] [address]- 3709 Jun, [facility] [place] [facility] [address] [id number] [place] [address]- 9037 Jun, [facility] [place] [facility] [address] [id number] [place] [address]- 7520 May, [facility] [place] [facility] [address] [id number] [place] [address]- 9818 May, [facility] [place] [facility] [address] [id number] [place] [address]- 5244 May, [facility] [place] [facility] [address] [id number] [place] [address]- 4107 May, [facility] [place] [facility] [address] [id number] [place] [address]- 3000 May, [facility] [place] [facility] [address] [id number] [place] [address]- 7407 May, 2013 [facility] [place] [facility] [address] [id number] [place] [address]- 1112 May, [facility] [place] [facility] [address] [id number] [place] [address]- 1336 May, 2013 [facility] [place] [facility] [address] [id number] [place] [address]- 9823 May, [facility] [place] [facility] [address] [id number] [place] [address]- 2538 May, [facility] [place] [facility] [address] [id number] [place] [address]- 9551 May, [facility] [place] [facility] [address] [id number] [place] [address]- 8836 May, [facility] [place] [facility] [address] [id number] [place] [address]- 7644 Apr, [facility] [place] [facility] [address] [id number] [place] [address]- 5890 Apr, [facility] [place] [facility] [address] [id number] [place] [address]- 9522 Apr, [facility] [place] [facility] [address] [id number] [place] [address]- 2330 Apr, [facility] [place] [facility] [address] [id number] [place] [address]- 9005 Apr, [facility] [place] [facility] [address] [id number] [place] [address]- 1385 Apr, [facility] [place] [facility] [address] [id number] [place] [address]- 6756 Apr, [facility] [place] [facility] [address] [id number] [place] [address]- 2163 Apr, [facility] [place] [facility] [address] [id number] [place] [address]- 6865 Apr, [facility] [place] [facility] [address] [id number] [place] [address]- 3182 Apr, [facility] [place] [facility] [address] [id number] [place] [address]- 2053 March, [facility] [place] [facility] [address] [id number] [place] [address] March, [facility] [place] [facility] [address] [id number] [place] [address] March, [facility] [place] [facility] [address] [id number] [place] [address] March, [facility] [place] [facility] [address] [id number] [place] [address] March, [facility] [place] [facility] [address] [id number] [place] [address] March, [facility] [place] [facility] [address] [id number] [place] [address] Feb, [facility] [place] [facility] [address] [id number] [place] [address] Feb, [facility] [place] [facility] [address] [id number] [place] [address] Feb, [facility] [place] [facility] [address] [id number] [place] [address] Feb, [facility] [place] [facility] [address] [id number] [place] [address] Feb, [facility] [place] [facility] [address] [id number] [place] [address] Feb, [facility] [place] [facility] [address] [id number] [place] [address] Feb, [facility] [place] [facility] [address] [id number] [place] [address] Feb, [facility] [place] [facility] [address] [id number] [place] [address] Feb, [facility] [place] [facility] [address] [id number] [place] [address] Feb, [facility] [place] [facility] [address] [id number] [place] [address] Jan, [facility] [place] [facility] [address] [id number] [place] [address] Jan, [facility] [place] [facility] [address] [id number] [place] [address] Jan, [facility] [place] [facility] [address] [id number] [place] [address] Jan, [facility] [place] [facility] [address] [id number] [place] [address]- [address] Jan, [facility] [place] [facility] [address] [id number] [place] [address] Jan, [facility] [place] [facility] [address] [id number] [place] [address] Jan, [facility] [place] [facility] [address] [id number] [place] [address] Jan, [facility] [place] [facility] [address] [id number] [place] [address] Dec, [facility] [place] [facility] [address] [id number] [place] [address] Dec, [facility] [place] [facility] [address] [id number] [place] [address] Dec, [facility] [place] [facility] [address] [id number] [place] [address] Dec, [facility] [place] [facility] [address] [id number] [place] [address] Dec, [facility] [place] [facility] [address] [id number], [place] [address] Dec, [facility] [address] [id number] [place] [address] Dec, [facility] [place] [facility] [address] [id number] [place] [address] Dec, [facility] [place] [facility] [address] [id number] [place] [address] Nov, [facility] [place] [facility] [address] [id number] [place] [address] Nov, [facility] [place] [facility] [address] [id number] [place] [address] Nov, [facility] [place] [facility] [address] [id number] [place] [address] Nov, [facility] [place] [facility] [address] [id number] [place] [address] Nov, [facility] [place] [facility] [address] [id number] [place] [address] Nov, [facility] [place] [facility] [address] [id number] [place] [address] Nov, [facility] [place] [facility] [address] [id number] [place] [address] Nov, [facility] [place] [facility] [address] [id number], [place] [address] Nov, [facility] [place] [facility] [address] [id number] [place] [address] Nov, [facility] [place] [facility] [address] [id number] [place] [address] Nov, [facility] [place] [facility] [address] [id number] [place] [address] Oct, [facility] [place] [facility] [address] [id number] [place] [address] Oct, [facility] [place] [facility] [address] [id number] [place] [address] Oct, [facility] [place] [facility] [address] [id number] [place] [address] Oct, [facility] [place] [facility] [address] [id number] [place] [address] Sep, [facility] [place] [facility] [address] [id number] [place] [address]- [address] Sep, [facility] [place] [facility] [address] [id number] [place] [address] Sep, [facility] [place] [facility] [address] [id number] [place] [address] Sep, [facility] [place] [facility] [address] [id number] [place] [address] Aug, [facility] [place] [facility] [address] [id number] [place] [address] Aug, [facility] [place] [facility] [address] [id number] [place] [address] Aug, [facility] [place] [facility] [address] [id number] [place] [address] 8549 Aug, [facility] [place] [facility] [address] [id number] [place] [address] 8405 Aug, [facility] [place] [facility] [address] [id number] [place] [address] 6164 Aug, [facility] [place] [facility] [address] [id number] [place] [address] 2531 Aug, [facility] [place] [facility] [address] [id number] [place] [address] 1217 Aug, [facility] [place] [facility] [address] [id number] [place] [address] 8343 Jul, [facility] [place] [facility] [address] [id number] [place] [address] 5637 Jul, [facility] [place] [facility] [address] [id number] [place] [address]- 6589 26 Sep, 2012 [facility] [place] [facility] [address] [id number] [place] [address] 2542 24 Sep, 2012 [facility] [place] [facility] [address] [id number] [place] [address]- 0894 24 Jul, 2012 [facility] [place] [facility] [address] [id number] [place] [address]- 3083 23 Sep, 2012 [facility] [place] [facility] [address] [id number] [place] [address]- 2925 19 Sep, 2012 [facility] [place] [facility] [address] [id number] [place] [address]- 3189 18 Jul, 2012 [facility] [place] [facility] [address] [id number] [place] [address]- 3220 17 Jul, 2012 [facility] [place] [facility] [address] [id number] [place] [address]- 7687 16 Jul, 2012 [facility] [place] [facility] [address] [id number] [place] [address]- 8428 13 Jul, 2012 [facility] [place] [facility] [address] [id number] [place] [address]- 4996 13 Jul, 2012 [facility] [place] [facility] [address] [id number] [place] [address]- 7558 12 Jul, 2012 [facility] [place] [facility] [address] [id number], [place] [address] 0366 11 Jul, 2012 [facility] [place] [facility] [address] [id number] [place] [address]- 3444 04 Jul, 2012 [facility] [place] [facility] [address] [id number] [place] [address]- 2375 30 Jun, 2013 [facility] [place] [facility] [address] [id number] [place] [address]- 4782 20 Jun, 2013 [facility] [place] [facility] [address] [id number] [place] [address]- 1147 Jun, [facility] [address] [id number] [place] [address]- 3522 May, [facility] [place] [facility] [address] [id number] [place] [address]- 4034 May, [facility] [place] [facility] [address] [id number] [place] [address]- 6577 May, [facility] [place] [facility] [address] [id number] [place] [address]- 2164 May, [facility] [place] [facility] [address] [id number] [place] [address]- 8578 Apr, [facility] [place] [facility] [address] [id number] [place] [address]- 5755 Apr, [facility] [address] [id number] [place] [address]- 2200 Apr, [facility] [place] [facility] [address] [id number] [place] [address]- 9406 Apr, [facility] [place] [facility] [address] [id number] [place] [address]- 8949 March, [facility] [place] [facility] [address] [id number] [place] [address]- 3396 March, [facility] [place] [facility] [address] [id number] [place] [address]- 3574 March, [facility] [place] [facility] [address] [id number] [place] [address]- 8356 Feb, [facility] [place] [facility] [address] [id number] [place] [address]- 5909 Feb, [facility] [place] [facility] [address] [id number] [place] [address]- 9161 Jan, [facility] [place] [facility] [address] [id number] [place] [address]- 0919 Jan, [facility] [place] [facility] [address] [id number] [place] [address]- 6889 Jan, [facility] [place] [facility] [address] [id number] [place] [address] 2546 Jan, [facility] [place] [facility] [address] [id number] [place] [address] 2542 Jan, [facility] [place] [facility] [address] [id number] [place] [address]- 3266 Dec, [facility] [place] [facility] [address] [id number] [place] [address]- 1765 Dec, [facility] [place] [facility] [address] [id number] [place] [address]- 4196 Dec, [facility] [place] [facility] [address] [id number] [place] [address]- 5668 Dec, [facility] [place] [facility] [address] [id number] [place] [address]- 5107 Dec, [facility] [place] [facility] [address] [id number] [place] [address]- 1480 Dec, [facility] [place] [facility] [address] [id number] [place] [address]- 1025 Dec, [facility] [place] [facility] [address] [id number] [place] [address]- 9394 Dec, [facility] [place] [facility] [address] [id number] [place] [address] 2543 Nov, [facility] [place] [facility] [address] [id number] [place] [address] 2545 Nov, [facility] [place] [facility] [address] [id number] [place] [address] 2543 Nov, [facility] [place] [facility] [address] [id number] [place] [address]- 4484 Nov, [facility] [place] [facility] [address] [id number] [place] [address]- 1001 Nov, [facility] [place] [facility] [address] [id number] [place] [address]- 1756 Nov, [facility] [place] [facility] [address] [id number] [place] [address]- 1660 Nov, [facility] [place] [facility] [address] [id number] [place] [address]- 2119 Oct, [facility] [place] [facility] [address] [id number] [place] [address]- 4021 Oct, [facility] [place] [facility] [address] [id number] [place] [address]- 9455 Oct, [facility] [place] [facility] [address] [id number] [place] [address]- 8627 Oct, [facility] [place] [facility] [address] [id number] [place] [address]- 2715 Oct, [facility] [place] [facility] [address] [id number] [place] [address]- 4682 Oct, [facility] [place] [facility] [address] [id number] [place] [address]- 1994 Oct, [facility] [place] [facility] [address] [id number] [place] [address]- 7979 Oct, [facility] [place] [facility] [address] [id number] [place] [address]- 0999 Sep, [facility] [place] [facility] [address] [id number] [place] [address]- 4512 Sep, [facility] [place] [facility] [address] [id number] [place] [address]- 2100 Sep, [facility] [place] [facility] [address] [id number] [place] [address]- 0156 Sep, [facility] [place] [facility] [address] [id number] [place] [address]- 3141 Sep, [facility] [place] [facility] [address] [id number] [place] [address]- 9765 Sep, [facility] [place] [facility] [address] [id number] [place] [address]- 2627 Sep, [facility] [place] [facility] [address] [id number] [place] [address]- 7972 Sep, [facility] [place] [facility] [address] [id number] [place] [address]- 1125 Sep, [facility] [place] [facility] [address] [id number] [place] [address]- 1505 Sep, [facility] [place] [facility] [address] [id number] [place] [address]- 5530 Sep, [facility] [place] [facility] [address] [id number] [place] [address]- 3200 Sep, [facility] [place] [facility] [address] [id number] [place] [address]- 8732 Sep, [facility] [place] [facility] [address] [id number] [place] [address]- 0208 Sep, [facility] [place] [facility] [address] [id number] [place] [address]- 6529 Sep, [facility] [place] [facility] [address] [id number] [place] [address]- 5021 Sep, [facility] [place] [facility] [address] [id number] [place] [address]- 8625 Sep, [facility] [place] [facility] [address] [id number] [place] [address]- 7755 Sep, [facility] [place] [facility] [address] [id number] [place] [address]- 3798 Sep, [facility] [place] [facility] [address] [id number] [place] [address]- 0478 Sep, [facility] [place] [facility] [address] [id number] [place] [address]- 1096 31 Aug, 2012 [facility] [place] [facility] [address] [id number] [place] [address]- 5759 31 Aug, 2012 [facility] [place] [facility] [address] [id number] [place] [address]- 3071 29 Aug, 2012 [facility] [place] [facility] [address] [id number] [place] [address]- 5890 27 Aug, 2012 [facility] [place] [facility] [address] [id number] [place] [address]- 9212 27 Aug, 2012 [facility] [place] [facility] [address] [id number] [place] [address]- 1295 18 Aug, 2012 [facility] [place] [facility] [address] [id number] [place] [address]- 7799 18 Aug, 2012 [facility] [place] [facility] [address] [id number] [place] [address]- 4431 17 Aug, 2012 [facility] [place] [facility] [address] [id number], [place] [address]- 6209 16 Aug, 2012 [facility] [place] [facility] [address] [id number], [place] [address]- 6545 16 Aug, 2012 [facility] [place] [facility] [address] [id number], [place] [address]- 4654 15 Aug, 2012 [facility] [place] [facility] [address] [id number], [place] [address]- 8141 09 Aug, 2012 [facility] [place] [facility] [address] [id number], [place] [address]- 4959 05 Aug, 2012 [facility] [place] [facility] [address] [id number], [place] [address]- 5562 05 Aug, 2012 [facility] [place] [facility] [address] [facility] [id number], [place] [address]- 7125 04 Aug, 2012 [facility] [place] [facility] [address] [id number], [place] [address]- 4999 14 Jul, 2012 [facility] [place] [facility] [address] [id number] [place] [address]- 0945 10 Jul, 2012 [facility] [address] [id number] [place] [address]- 6761 Jun, [facility] [address] [id number] [place] [address]- 9926 Jun, [facility] [address] [id number] [place] [address]- 2928 May, [facility] [address] [id number] [place] [address]- 9675 May, [facility] [address] [id number] [place] [address]- 3456 May, [facility] [address] [id number] [place] [address]- 5111 May, [facility] [address] [id number] [place] [address]- 6009 May, [facility] [address] [id number] [place] [address]- 3749 May, [facility] [address] [id number] [place] [address]- 7165 Apr, [facility] [address] [id number] [place] [address]- 4118 Apr, [facility] [address] [id number] [place] [address]- 2641 March, [facility] [address] [id number] [place] [address]- 1760 March, [facility] [address] [id number] [place] [address]- 4387 March, [facility] [address] [id number] [place] [address]- 7206 March, [facility] [address] [id number] [place] [address]- 5136 March, [facility] [place] [facility] [address] [id number] [place] [address]- 5214 March, [facility] [place] [facility] [address] [id number] [place] [address]- 5689 Feb, [facility] [place] [facility] [address] [id number] [place] [address]- 5267 Feb, [facility] [place] [facility] [address] [id number] [place] [address]- 8759 Feb, [facility] [address] [id number] [place] [address]- 9711 Feb, [facility] [place] [facility] [address] [id number] [place] [address]- 5489 Feb, [facility] [address] [id number] [place] [address]- 9179 Feb, [facility] [address] [id number] [place] [address]- 7068 Feb, [facility] [place] [facility] [address] [id number] [place] [address]- 0050 Feb, [facility] [place] [facility] [address] [id number] [place] [address]- 1583 Feb, [facility] [place] [facility] [address] [id number] [place] [address]- 1304 Jan, [facility] [place] [facility] [address] [id number] [place] [address]- 6700 Jan, [facility] [place] [facility] [address] [id number] [place] [address]- 8490 Jan, [facility] [place] [facility] [address] [id number] [place] [address]- 8082 Jan, [facility] [place] [facility] [address] [id number] [place] 9372 Jan, [facility] [place] [facility] [address] [id number], [place] [address]- 0408 20 Jan, 2012 [facility] [address] [id number] [place] [address]- 1324 14 Jan, 2012 [facility] [place] [facility] [address] [id number] [place] [address]- 0130 09 Jan, 2012 [facility] [place] [facility] [address] [facility] [id number] [place] [address]- 1766 Jan, [facility] [place] [facility] [address] [id number] [place] [address]- 0343 08 Jan, 2012 [facility] [place] [facility] [address] [id number] [place] [address]- 1768 07 Jan, 2012 [facility] [place] [facility] [address] [facility] [id number] [place] [address]- 9493 06 Jan, 2012 [facility] [address] [id number] [place] [address]- 7441 Jan, [facility] [place] [facility] [address] [facility] [id number] [place] [address]- 1281 Jan, [facility] [place] [facility] [address] [facility] [id number] [place] [address]- 8835 28 Dec, 2011 [facility] [place] [facility] [address] [facility] [id number] [place] [address]- 4639 Dec, [facility] [place] [facility] [address] [facility] [id number] [place] [address]- 7906 25 Dec, 2011 [facility] [place] [facility] [address] [facility] [id number] [place] [address]- 0207 23 Dec, 2011 [facility] [place] [facility] [address] [facility] [id number] [place] [address]- 4817 16 Dec, 2011 [facility] [place] [facility] [address] [facility] [id number], [place] [address]- 4689 08 Dec, 2011 [facility] [place] [facility] [address] [facility] [id number], [place] [address]- 6822 08 Dec, 2011 [facility] [place] [facility] [address] [id number] [place] [address]- 4457 Dec, [facility] [place] [facility] [address] [id number] [place] [address]- 1536 Dec, [facility] [place] [facility] [address] [id number] [place] [address]- 1668 Nov, [facility] [place] [facility] [address] [id number] [place] [address]- 3343 Nov, [facility] [address] [id number] [place] [address]- 4763 Nov, [facility] [place] [facility] [address] [id number] [place] [address]- 7864 Nov, [facility] [address] [id number] [place] [address]- 4964 Oct, [facility] [address] [id number] [place] [address]- 8605 Oct, [facility] [place] [facility] [address] [id number] [place] [address]- 5381 Oct, [facility] [address] [id number], [place] [address]- 6609 Oct, [facility] [place] [facility] [address] [id number], [place] [address]- 4637 Oct, [facility] [place] [facility] [address] [id number], [place] [address]- 4364 Oct, [facility] [place] [facility] [address] [id number] [place] [address]- 4580 Oct, [facility] [place] [facility] [address] [id number], [place] [address]- 6587 Sep, [facility] [place] [facility] [address] [id number] 0579 Sep, [facility] [place] [facility] [address] [id number], [place] [address]- 2278 Sep, [facility] [place] [facility] [address] [id number] [place] [address]- 4388 Sep, [facility] [place] [facility] [address] [id number] [place] [address]- 0090 Sep, [facility] [place] [facility] [address] [facility] [id number] [place] [address]- 6909 Sep, [facility] [place] [facility] [address] [id number] [place] [address]- 4922 Sep, [facility] [place] [facility] [address] [id number] [place] [address]- 9542 Sep, [facility] [place] [facility] [address] [id number] [place] [address]- 2469 Sep, [facility] [place] [facility] [address] [facility] [id number] [place] [address]- 3801 Aug, [facility] [place] [facility] [address] [id number] [place] [address]- 8169 Aug, [facility] [place] [facility] [address] [facility] [id number] [place] [address]- 4975 Aug, [facility] [place] [facility] [address] [facility] [id number] [place] [address]- 3484 May, [facility] [place] [facility] [address] [facility] [id number], [place] [address]- 8639 Nov, [facility] [place] [facility] [address] [id number] [place] [address]- 8931 Oct, [facility] [place] [facility] [address] [id number] [place] [address]- 5474 Oct, [facility] [place] [facility] [address] [facility] [id number] [place] [address]- 0451 Oct, [facility] [place] [facility] [address] [facility] [id number] [place] [address]- 0235 Oct, [facility] [place] [facility] [address] [id number] [place] [address]- 9233 Oct, [facility] [address] [id number] [place] [address]- 2595 03 Sep, 2010 [facility] [place] [facility] [address] [id number] [place] [address]- 1366 02 Sep, 2010 [facility] [address] [id number] [place] [address]- 6177 14 Jul, 2010 [facility] [place] [facility] [address] [id number] [place] [address]- 5301 31 Oct, 2009 [facility] [address] [id number] [place] [address]- 8748 Oct, [facility] [place] [facility] [address] [facility] [id number] [place] [address]- 7185 Oct, [facility] [place] [facility] [address] [id number] [place] [address]- 3438 Oct, [facility] [address] [id number] [place] [address]- 6332 30 Sep, 2009 [facility] [place] [facility] [address] [facility] [id number] [place] [address]- 0133 Sep, [facility] [address] [facility] [id number] [place] [address]- 9769 Sep, [facility] [place] [facility] [address] [id number] [place] [address]- 7275 Sep, [facility] [place] [facility] [address] [id number] [place] [address]- 6784 Sep, [facility] [place] [facility] [address] [id number] [place] [address]- 0962 11 Jul, 2009 [facility] [place] [facility] [address] [facility] [id number] [place] [address]- 5143 Apr, [facility] [place] [facility] [address] [id number], [place] [address]- 9403 12 Dec, 2008 IMMUNIZATIONS No Known Immunizations SOCIAL HISTORY Never Assessed REASON FOR VISIT Prior Authorization Request PLAN OF CARE VITAL SIGNS MEDICATIONS Unknown [...]
[2018-11-26 15:39] LABS: BACTERIA,URINE LARGE /HPF; RBC,URINE 0-2 /HPF; WBC,URINE 25-50 /HPF
[2018-11-26] MEDS ORDERED: METOPROLOL TARTRATE 25 MG TAB (15:39)
[2018-11-26] MEDS ORDERED: LEVOTHYROXINE 50 MCG TABLET (15:39)
[2018-11-26] MEDS ORDERED: PANTOPRAZOLE SOD DR 40 MG TAB (15:39)
[2018-11-26] MEDS ORDERED: ATORVASTATIN 40 MG TABLET (15:39)
[2018-11-26] MEDS ORDERED: NAPROXEN 500 MG TABLET (15:39)
[2018-11-26] MEDS ORDERED: MONTELUKAST SOD 10 MG TABLET (15:39)
[2018-11-26] MEDS ORDERED: CETIRIZINE HCL 10 MG TABLET (15:39)
[2018-11-26] MEDS ORDERED: CYCLOBENZAPRINE 10 MG TABLET (15:39)
[2018-11-26] MEDS ORDERED: FLUOXETINE HCL 40 MG CAPSULE (15:39)
[2018-11-26] MEDS ORDERED: GABAPENTIN 300 MG CAPSULE (15:39)
[2018-11-26] MEDS ORDERED: TRAZODONE 100 MG TABLET (15:39)
[2018-11-26] MEDS ORDERED: METFORMIN HCL 500 MG TABLET (15:39)
[2018-11-26] MEDS ORDERED: AMLODIPINE BESYLATE 5 MG TAB (15:39)
--- OUTSIDE RECORDS SUMMARY | 2018-11-26 15:39 | XMS REPORT ---
Author Author KING FISHMAN [facility] Address [address] [place] [address] Care Team Providers Care Tuyere Fitter Name Role Phone KING FISHMAN Unavailable PROBLEMS Type Condition ICD9-CM Code SEK34-XA Code Onset Dates Condition Status SNOMED Code Problem Lumbago with sciatica, left side M54.42 Active 951181502 Problem Other chronic pain G89.29 Active 05888627 Problem Lumbago with sciatica, right side M54.41 Active [id number] Problem Seasonal allergies J30.2 Active 740079543 Problem Iron deficiency anemia due to chronic blood loss D50.0 Active 710172427 Problem Cigarette nicotine dependence without complication F17.210 Active 83543023 Problem Chronic obstructive pulmonary disease, unspecified COPD type J44.9 Active 95513171 Problem Seizures R56.9 Active 63266301 Problem DM 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 Active 57149181 Problem Essential hypertension I10 Active 88332776 Problem Acquired hypothyroidism E03.9 Active 805216286 Problem Mixed hyperlipidemia E78.2 Active 694624010 Problem Reactive depression F32.9 Active 08284382 Problem Prediabetes R73.03 Active 400316910 Problem Gastroesophageal reflux disease, esophagitis presence not specified K21.9 Active 899222545 ALLERGIES Substance Reaction Event Type Date Status Penicillin G Potassium anaphylaxis Drug Allergy Sep, Active Codeine Sulfate anaphylaxis Drug Allergy Sep, Active Aspirin hives Drug Allergy Sep, Active Peanut hives Non Drug Allergy Sep, Active ENCOUNTERS Encounter Location Date Diagnosis [facility] [address] [facility] [id number] [address] Oct, [facility] [address] [id number] [address] Sep, Type 2 diabetes mellitus with hyperglycemia E11.65 [facility] [id number] [place] [address] 33823- 5856 Sep, Chronic obstructive pulmonary disease, unspecified COPD type J44.9 ; Abrasion of right ear canal, initial encounter S00.411A ; Cigarette nicotine dependence without complication F17.210 ; Right leg pain M79.604 and Seasonal allergies J30.2 [place] [id number] [place] [address] 59821- 6386 Aug, [place] [address] [address]- 6157 Aug, [place] [id number] [place] [address] 93334- 0238 Aug, Pain in thoracic spine M54.6 [place] [address] 50726- 5046 Aug, [place] [address] 88668- 8127 Aug, Chronic obstructive pulmonary disease, unspecified COPD type J44.9 ; Complete amputation of right foot, 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 ; Cigarette nicotine dependence without complication F17.210 and BMI 40.0-44.9, adult Z68.41 [place] [id number] [place] [address] 45543- 6912 Jul, [place] [id number] [place] [address] 39628- 8180 Jul, [place] [address] 00511- 0892 Jul, Onychomycosis B35.1 ; Onychocryptosis L60.0 and DM 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 [place] [id number] [place] [address] 71558- 9905 Jun, Pain in thoracic spine M54.6 [place] [id number] [place] [address] 23125- 2175 Jun, Iron deficiency anemia due to chronic blood loss D50.0 and Hematochezia K92.1 [facility] [id number] [place] [address] 14512- 8750 Jun, Gastroenteritis K52.9 and Abnormal RBC indices R71.8 [facility] [id number] [place] [address] 91035- 3746 Jun, [facility] [address] 60016- 8798 Jun, Chest congestion R09.89 and Seizures R56.9 [facility] [id number] [place] [address] 58945- 3467 May, Pain in thoracic spine M54.6 [facility] [id number] [place] [address] 04863- 3129 May, [facility] [id number] [place] [address] 52183- 9760 May, [facility] [id number] [place] [address] 62960- 4057 May, [facility] [address] 42017- 3366 May, Acute non-recurrent frontal sinusitis J01.10 and Dermatitis L30.9 [facility] [id number] [place] [address] 97984 2548 May, [facility] [id number] [place] [address] 38213- 2547 May, Pain in thoracic spine M54.6 [facility] [id number] [place] [address] 96425 2546 May, [facility] [id number] [place] [address] 74870- 2544 May, Acute nasopharyngitis J00 [facility] [id number] [place] [address] 57045- 2546 May, [facility] [id number] [place] [address] 49146- 7552 May, [place] [address] 10393- 8354 Apr, [place] [address] 51592- 8834 Apr, [place] [address] 49192- 0334 Apr, [place] [address] 26145- 6522 Apr, [place] [address] 90774- 0168 Apr, Pain in right ankle and joints of right foot M25.571 [place] [address] 54928- 7262 Apr, [place] [address] 06303- 2932 Apr, Bronchitis J40 ; Pain in right ankle and joints of right foot M25.571 ; Other chronic pain G89.29 ; Prediabetes R73.03 ; Chronic obstructive pulmonary disease, unspecified COPD type J44.9 and Cigarette nicotine dependence without complication F17.210 [facility] [address] 21292 -8901 13 Apr, 2018 Seasonal allergic rhinitis, unspecified trigger J30.2 [place] [id number] [place] [address] 05972- 5687 08 Apr, 2018 Onychomycosis B35.1 ; Onychocryptosis L60.0 and DM 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 98811- 1675 Apr, Reactive depression F32.9 ; Thoracic myofascial strain, initial encounter S29.019A and Leg cramps R25.[address] [place] [address]- 6191 March, [place] [address] 07024- 8070 March, Type 2 diabetes mellitus with hyperglycemia E11.65 [place] [address] 10710- 3464 March, Reactive depression F32.9 [place] [address] 21159- 3147 March, Pain in thoracic spine M54.6 and Other chronic pain G89.29 [place] [address] 76434- 2275 Feb, [place] [address] 98555- 1317 Jan, Reactive depression F32.9 ; Essential hypertension I10 ; Gastroesophageal reflux disease, esophagitis presence not specified K21.9 ; Lumbago with sciatica, left side M54.42 and Lumbago with sciatica, right side M54.41 [place] [address] 79938- 0091 Jan, Reactive depression F32.9 and Pharyngoesophageal dysphagia R13.14 [place] [address] 01799- 4217 Jan, [place] [address] 17442- 7325 Jan, Encounter for immunization Z23 [place] [address] 94051- 4557 Jan, Onychomycosis B35.1 and DM 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 [place] [address] 19880- 6159 Jan, [place] [address] 79053- 5107 Jan, Prediabetes R73.03 [facility] [id number] [place] [address] 06266- 7669 Dec, [facility] [address] 40566- 7054 Dec, Essential hypertension I10 ; Mixed hyperlipidemia E78.2 ; Acquired hypothyroidism E03.9 ; Reactive depression F32.9 and Prediabetes R73.03 [facility] [address] 72017- 9615 Dec, [facility] [address] 98793- 5718 Dec, [place] [address] 27560- 1411 Dec, DM 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 [facility] [id number] [place] [address] 95556 -2211 Dec, Bruise T14.8XXA ; Type 2 diabetes mellitus with hyperglycemia E11.65 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 [place] [address] 52939- 3175 Oct, [facility] [id number] [place] [address] 77786- 4047 March, Onychomycosis B35.1 and DM 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 [facility] [id number] [place] [address] 80290- 0937 Jun, [facility] [id number] [place] [address] 26331- 9326 Jun, [facility] [address] 28864- 9638 Jun, COPD with acute exacerbation 491.21 [facility] [address] 87666- 7279 Apr, [facility] [address] [id number] [place] [address]- 2226 14 Feb, 2015 [facility] [place] [facility] [address] [id number] [place] [address]- 1207 13 Feb, 2015 [facility] [place] [facility] [address] [id number] [place] [address]- 0185 26 Jan, 2015 [facility] [place] [facility] [address] [id number] [place] [address]- 6530 26 Jan, 2015 [facility] [place] [facility] [address] [id number] [place] [address]- 4117 2015 [facility] [place] [facility] [address] [id number] [place] [address]- 7898 2015 [facility] [place] [facility] [address] [id number] [place] [address]- 2154 24 Jan, 2015 [facility] [place] [facility] [address] [id number] [place] [address]- 3583 Jan, [facility] [place] [facility] [address] [id number] [place] [address]- 7616 23 Jan, 2015 [facility] [place] [facility] [address] [id number] [place] [address]- 6100 23 Jan, 2015 [facility] [place] [facility] [address] [id number] [place] [address]- 1364 23 Jan, 2015 [facility] [place] [facility] [address] [id number] [place] [address]- 2276 19 Jan, 2015 [facility] [place] [facility] [address] [id number] [place] [address]- 6406 19 Jan, 2015 [facility] [place] [facility] [address] [id number] [place] [address]- 3738 18 Jan, 2015 [facility] [place] [facility] [address] [id number] [place] [address]- 2970 18 Jan, 2015 [facility] [place] [facility] [address] [id number] [place] [address]- 0440 16 Jan, 2015 [facility] [place] [facility] [address] [id number] [place] [address]- 2764 16 Jan, 2015 [facility] [place] [facility] [address] [id number] [place] [address]- 5926 16 Jan, 2015 [facility] [place] [facility] [address] [id number] [place] [address]- 2718 16 Jan, 2015 [facility] [place] [facility] [address] [id number] [place] [address]- 2024 15 Jan, 2015 [facility] [place] [facility] [address] [id number] [place] [address]- 9781 13 Jan, 2015 [facility] [place] [facility] [address] [id number] [place] [address]- 0252 13 Jan, 2015 [facility] [place] [facility] [address] [id number] [place] [address]- 8025 13 Jan, 2015 [facility] [place] [facility] [address] [id number] [place] [address]- 2437 13 Jan, 2015 [facility] [place] [facility] [address] [id number] [place] [address]- 9077 12 Jan, 2015 [facility] [place] [facility] [address] [id number] [place] [address]- 6084 04 Jan, 2015 [facility] [place] [facility] [address] [id number] [place] [address]- 5202 Jan, [facility] [place] [facility] [address] [id number] [place] [address]- 7146 24 Dec, 2014 [facility] [place] [facility] [address] [id number] [place] [address]- 0121 Dec, [facility] [place] [facility] [address] [id number] [place] [address]- 4511 24 Dec, 2014 [facility] [place] [facility] [address] [id number] [place] [address]- 7060 Dec, [facility] [place] [facility] [address] [id number] [place] [address]- 0024 Dec, 2014 [facility] [place] [facility] [address] [id number] [place] [address]- 6816 Dec, 2014 [facility] [place] [facility] [address] [id number] [place] 4196 Dec, 2014 [facility] [place] [facility] [address] [id number] [place] [address]- 1036 Dec, 2014 [facility] [place] [facility] [address] [id number] [place] [address]- 254 Dec, 2014 [facility] [place] [facility] [address] [id number] [place] [address]- 3106 Dec, 2014 [facility] [place] [facility] [address] [id number] [place] [address]- 5826 16 Dec, 2014 [facility] [place] [facility] [address] [id number] [place] [address]- 7457 16 Dec, 2014 [facility] [place] [facility] [address] [id number] [place] [address]- 9011 Nov, [facility] [place] [facility] [address] [id number] [place] [address]- 0021 Nov, [facility] [place] [facility] [address] [facility] [id number] [place] [address]- 6373 Nov, [facility] [place] [facility] [address] [id number] [place] [address]- 8701 Nov, [facility] [place] [facility] [address] [id number] [place] [address]- 2548 Nov, [facility] [place] [facility] [address] [id number] [place] [address]- 4055 Nov, [facility] [place] [facility] [address] [id number] [place] [address]- 3877 Nov, [facility] [place] [facility] [address] [id number] [place] [address]- 5148 Nov, [facility] [place] [facility] [address] [id number] [place] [address]- 4108 Nov, [facility] [place] [facility] [address] [id number] [place] [address]- 1169 Nov, [facility] [place] [facility] [address] [id number] [place] [address]- 9228 Nov, [facility] [place] [facility] [address] [id number] [place] [address]- 4822 Nov, [facility] [place] [facility] [address] [id number] [place] [address]- 4840 Oct, [facility] [place] [facility] [address] [id number] [place] [address]- 2091 Oct, [facility] [place] [facility] [address] [id number] [place] [address]- 4212 Oct, [facility] [place] [facility] [address] [id number] [place] [address]- 1329 30 Oct, 2014 [facility] [place] [facility] [address] [id number] [place] [address]- 2657 Oct, [facility] [place] [facility] [address] [id number] [place] [address]- 3926 Oct, [facility] [place] [facility] [address] [id number] [place] [address]- 7743 Oct, [facility] [place] [facility] [address] [id number] [place] [address]- 9858 23 Oct, 2014 [facility] [place] [facility] [address] [id number] [place] [address]- 1706 17 Oct, 2014 [facility] [place] [facility] [address] [id number] [place] [address]- 4275 17 Oct, 2014 [facility] [place] [facility] [address] [id number] [place] 9705 16 Oct, 2014 [facility] [place] [facility] [address] [id number] [place] [address]- 0559 16 Oct, 2014 [facility] [place] [facility] [address] [id number] [place] [address]- 5737 15 Oct, 2014 [facility] [place] [facility] [address] [id number] [place] [address]- 7400 Oct, [facility] [place] [facility] [address] [id number] [place] [address]- 5340 Oct, [facility] [place] [facility] [address] [id number] [place] [address]- 3119 Sep, [facility] [place] [facility] [address] [id number] [place] [address]- 0324 Sep, [facility] [place] [facility] [address] [id number] [place] [address]- 3085 Sep, [facility] [place] [facility] [address] [id number] [place] [address]- 2571 Sep, [facility] [place] [facility] [address] [id number] [place] [address]- 3630 Aug, [facility] [place] [facility] [address] [id number] [place] [address]- 0277 Aug, [facility] [place] [facility] [address] [facility] [id number] [place] [address]- 6702 Aug, [facility] [place] [facility] [address] [id number] [place] [address]- 8856 Aug, [facility] [place] [facility] [address] [id number] [place] [address]- 6588 Aug, [facility] [place] [facility] [address] [id number] [place] [address]- 2427 Aug, [facility] [place] [facility] [address] [id number] [place] [address]- 5209 Jul, [facility] [place] [facility] [address] [id number] [place] [address]- 3683 29 Jul, 2014 [facility] [place] [facility] [address] [id number] [place] [address]- 7091 15 Jul, 2014 [facility] [place] [facility] [address] [id number] [place] [address]- 2526 15 Jul, 2014 [facility] [place] [facility] [address] [id number] [place] [address]- 6266 08 Jul, 2014 [facility] [place] [facility] [address] [id number] [place] [address]- 0046 Jul, [facility] [place] [facility] [address] [id number] [place] [address]- 2644 Jun, [facility] [place] [facility] [address] [id number] [place] [address]- 9225 Jun, [facility] [place] [facility] [address] [id number] [place] [address]- 8860 Jun, [facility] [place] [facility] [address] [id number] [place] [address]- 3130 Jun, [facility] [place] [facility] [address] [id number] [place] [address]- 1043 Jun, [facility] [place] [facility] [address] [id number] [place] [address]- 6669 Jun, [facility] [place] [facility] [address] [id number] [place] [address]- 3843 Jun, [facility] [place] [facility] [address] [id number] [place] [address]- 2949 May, [facility] [place] [facility] [address] [id number] [place] [address]- 7012 May, [facility] [place] [facility] [address] [id number] [place] [address]- 5933 May, [facility] [place] [facility] [address] [id number] [place] [address]- 7332 May, [facility] [place] [facility] [address] [id number] [place] [address]- 5774 May, [facility] [place] [facility] [address] [id number] [place] [address]- 9559 May, 2013 [facility] [place] [facility] [address] [id number] [place] [address]- 1068 May, [facility] [place] [facility] [address] [id number] [place] [address]- 0548 May, 2013 [facility] [place] [facility] [address] [id number] [place] [address]- 9849 May, [facility] [place] [facility] [address] [id number] [place] [address]- 6686 May, [facility] [place] [facility] [address] [id number] [place] [address]- 0004 May, [facility] [place] [facility] [address] [id number] [place] [address]- 9681 May, [facility] [place] [facility] [address] [id number] [place] [address]- 6517 Apr, [facility] [place] [facility] [address] [id number] [place] [address]- 3044 Apr, [facility] [place] [facility] [address] [id number] [place] [address]- 7866 Apr, [facility] [place] [facility] [address] [id number] [place] [address]- 0845 Apr, [facility] [place] [facility] [address] [id number] [place] [address]- 4577 Apr, [facility] [place] [facility] [address] [id number] [place] [address]- 7471 Apr, [facility] [place] [facility] [address] [id number] [place] [address]- 5364 Apr, [facility] [place] [facility] [address] [id number] [place] [address]- 8945 Apr, [facility] [place] [facility] [address] [id number] [place] [address]- 3061 Apr, [facility] [place] [facility] [address] [id number] [place] [address]- 1925 Apr, [facility] [place] [facility] [address] [id number] [place] [address]- 6732 March, [facility] [place] [facility] [address] [id number] [place] [address]- 0942 March, [facility] [place] [facility] [address] [id number] [place] [address]- 5214 March, [facility] [place] [facility] [address] [id number] [place] [address]- 1994 March, [facility] [place] [facility] [address] [id number] [place] [address]- 6042 March, [facility] [place] [facility] [address] [id number] [place] [address]- 2955 March, [facility] [place] [facility] [address] [id number] [place] [address]- 6597 Feb, [facility] [place] [facility] [address] [id number] [place] [address]- 2215 Feb, [facility] [place] [facility] [address] [id number] [place] [address] Feb, [facility] [place] [facility] [address] [id number] [place] [address] Feb, [facility] [place] [facility] [address] [id number] [place] [address] Feb, [facility] [place] [facility] [address] [id number] [place] [address] Feb, [facility] [place] [facility] [address] [id number] [place] [address] Feb, [facility] [place] [facility] [address] [id number] [place] [address] Feb, [facility] [place] [facility] [address] [id number] [place] [address] Feb, [facility] [place] [facility] [address] [id number] [place] [address] Feb, [facility] [place] [facility] [address] [id number] [place] [address] Jan, [facility] [place] [facility] [address] [id number] [place] [address] Jan, [facility] [place] [facility] [address] [id number] [place] [address] Jan, [facility] [place] [facility] [address] [id number] [place] [address] Jan, [facility] [place] [facility] [address] [id number] [place] [address] Jan, [facility] [place] [facility] [address] [id number] [place] [address] Jan, [facility] [place] [facility] [address] [id number] [place] [address] Jan, [facility] [place] [facility] [address] [id number] [place] [address] Jan, [facility] [place] [facility] [address] [id number] [place] [address] Dec, [facility] [place] [facility] [address] [id number] [place] [address] Dec, [facility] [place] [facility] [address] [id number] [place] [address] Dec, [facility] [place] [facility] [address] [id number] [place] [address] Dec, [facility] [place] [facility] [address] [id number] [place] [address]- [address] Dec, [facility] [place] [facility] [address] [id number] [place] [address] Dec, [facility] [place] [facility] [address] [id number] [place] [address] Dec, [facility] [place] [facility] [address] [id number] [place] [address] Dec, [facility] [place] [facility] [address] [id number] [place] [address] Nov, [facility] [place] [facility] [address] [id number] [place] [address] Nov, [facility] [place] [facility] [address] [id number] [place] [address] Nov, [facility] [place] [facility] [address] [id number] [place] [address] Nov, [facility] [place] [facility] [address] [id number] [place] [address] 94[address] Nov, [facility] [place] [facility] [address] [id number] [place] [address] Nov, [facility] [place] [facility] [address] [id number] [place] [address] Nov, [facility] [place] [facility] [address] [id number] [place] [address] Nov, [facility] [place] [facility] [address] [id number] [place] [address] Nov, [facility] [place] [facility] [address] [id number] [place] [address] Nov, [facility] [place] [facility] [address] [id number] [place] [address] Nov, [facility] [place] [facility] [address] [id number] [place] [address] Oct, [facility] [place] [facility] [address] [id number] [place] [address] Oct, [facility] [place] [facility] [address] [id number] [place] [address] Oct, [facility] [place] [facility] [address] [id number] [place] [address] Oct, [facility] [place] [facility] [address] [id number] [place] [address] Sep, [facility] [place] [facility] [address] [id number] [place] [address] Sep, [facility] [address] [id number] [place] [address] Sep, [facility] [place] [facility] [address] [id number] [place] [address] Sep, [facility] [address] [id number] [place] [address] Aug, [facility] [place] [facility] [address] [id number] [place] [address] Aug, [facility] [place] [facility] [address] [id number] [place] [address] Aug, [facility] [place] [facility] [address] [id number] [place] [address] Aug, [facility] [place] [facility] [address] [id number] [place] [address] Aug, [facility] [place] [facility] [address] [id number] [address] Aug, [facility] [place] [facility] [address] [id number] [place] [address] Aug, [facility] [place] [facility] [address] [id number] [place] [address] 4740 Aug, [facility] [place] [facility] [address] [id number] [place] [address] Jul, [facility] [place] [facility] [address] [id number] [place] [address] 2548 27 Sep, 2012 [facility] [place] [facility] [address] [id number] [place] [address] 2546 26 Sep, 2012 [facility] [place] [facility] [address] [id number] [place] [address] 2546 24 Jul, 2012 [facility] [place] [facility] [address] [id number] [place] [address] 2546 24 Sep, 2012 [facility] [place] [facility] [address] [id number] [place] [address] 2545 23 Sep, 2012 [facility] [place] [facility] [address] [id number] [place] [address] 254 19 Sep, 2012 [facility] [place] [facility] [address] [id number] [place] [address]- 4631 18 Jul, 2012 [facility] [place] [facility] [address] [id number] [place] [address]- 4370 17 Jul, 2012 [facility] [place] [facility] [address] [id number] [place] [address]- 7624 16 Jul, 2012 [facility] [place] [facility] [address] [id number] [place] [address] 2544 13 Jul, 2012 [facility] [place] [facility] [address] [id number] [place] [address] 2549 13 Jul, 2012 [facility] [place] [facility] [address] [id number] [place] [address] 254 12 Jul, 2012 [facility] [place] [facility] [address] [id number] [place] [address]- 2547 11 Jul, 2012 [facility] [place] [facility] [address] [id number] [place] [address] 2548 04 Jul, 2012 [facility] [place] [facility] [address] [id number] [place] [address]- 2540 30 Jun, 2013 [facility] [place] [facility] [address] [id number] [place] [address]- 2543 20 Jun, 2013 [facility] [place] [facility] [address] [id number] [place] [address] 2549 Jun, [facility] [address] [id number] [place] [address] 1185 May, [facility] [address] [id number] [place] [address] 3336 May, [facility] [address] [id number] [place] [address]- 7392 May, [facility] [address] [id number] [place] [address]- 4108 May, [facility] [address] [id number] [place] [address]- 0876 Apr, [facility] [address] [id number] [place] [address]- 0697 Apr, [facility] [address] [id number] [place] [address]- 4389 Apr, [facility] [address] [id number] [place] [address]- 1581 Apr, [facility] [address] [id number] [place] [address]- 8913 March, [facility] [address] [id number] [place] [address]- 6917 March, [facility] [address] [id number] [place] [address]- 3519 March, [facility] [address] [id number] [place] [address]- 6733 Feb, [facility] [place] [facility] [address] [id number] [place] [address]- 6254 Feb, [facility] [address] [id number] [place] [address]- 2546 Jan, [facility] [address] [id number] [place] [address]- 9654 Jan, [facility] [address] [id number] [place] [address]- 1015 Jan, [facility] [place] [facility] [address] [id number] [place] [address]- 3286 Jan, [facility] [place] [facility] [address] [id number] [place] [address]- 9238 Jan, [facility] [place] [facility] [address] [id number] [place] [address]- 2863 Dec, [facility] [place] [facility] [address] [id number] [place] [address]- 9469 Dec, [facility] [place] [facility] [address] [id number] [place] [address]- 1175 Dec, [facility] [place] [facility] [address] [id number] [place] [address]- 7910 Dec, [facility] [place] [facility] [address] [id number] [place] [address]- 5957 Dec, [facility] [place] [facility] [address] [id number] [place] [address]- 5288 Dec, [facility] [place] [facility] [address] [id number] [place] [address]- 9672 Dec, [facility] [place] [facility] [address] [id number] [place] [address]- 8459 Dec, [facility] [place] [facility] [address] [id number] [place] [address]- 8863 Nov, [facility] [place] [facility] [address] [id number] [place] [address]- 9829 Nov, [facility] [place] [facility] [address] [id number] [place] [address]- 8965 Nov, [facility] [place] [facility] [address] [id number] [place] [address]- 1009 Nov, [facility] [place] [facility] [address] [id number] [place] [address]- 8736 Nov, [facility] [address] [id number] [place] [address]- 2423 Nov, [facility] [place] [facility] [address] [id number] [place] [address]- 1621 Nov, [facility] [address] [id number] [place] [address]- 4635 Oct, [facility] [address] [id number] [place] [address]- 3648 Oct, [facility] [address] [id number] [place] [address] Oct, [facility] [address] [id number] [place] [address]- 1461 Oct, [facility] [address] [id number] [place] [address]- 2821 Oct, [facility] [address] [id number] [place] [address]- 2021 Oct, [facility] [address] [id number] [place] [address]- 8178 Oct, [facility] [address] [id number] [place] [address]- 5658 Oct, [facility] [place] [facility] [address] [id number] [place] [address]- 0722 Sep, [facility] [place] [facility] [address] [id number] [place] [address]- 6523 Sep, [facility] [place] [facility] [address] [id number] [place] [address]- 5432 Sep, [facility] [place] [facility] [address] [id number] [place] [address]- 7562 Sep, [facility] [place] [facility] [address] [id number] [place] [address]- 6953 Sep, [facility] [place] [facility] [address] [id number] [place] [address]- 8843 Sep, [facility] [place] [facility] [address] [id number] [place] [address]- 9664 Sep, [facility] [place] [facility] [address] [id number] [place] [address]- 8631 Sep, [facility] [place] [facility] [address] [id number] [place] [address]- 8565 Sep, [facility] [place] [facility] [address] [id number] [place] [address]- 2947 Sep, [facility] [place] [facility] [address] [id number] [place] [address]- 1742 Sep, [facility] [place] [facility] [address] [id number] [place] [address]- 5502 Sep, [facility] [place] [facility] [address] [id number] [place] [address]- 8147 Sep, [facility] [place] [facility] [address] [id number] [place] [address]- 8460 Sep, [facility] [place] [facility] [address] [id number] [place] [address]- 5596 Sep, [facility] [place] [facility] [address] [id number] [place] [address]- 7217 Sep, [facility] [place] [facility] [address] [id number] [place] [address]- 9942 Sep, [facility] [place] [facility] [address] [id number] [place] [address]- 8949 Sep, [facility] [place] [facility] [address] [id number] [place] [address]- 9782 Sep, [facility] [place] [facility] [address] [id number] [place] [address]- 7207 Sep, [facility] [place] [facility] [address] [id number] [place] [address]- 4052 31 Aug, 2011 [facility] [place] [facility] [address] [id number] [place] [address]- 4575 31 Aug, 2011 [facility] [place] [facility] [address] [id number] [place] [address]- 0109 29 Aug, 2011 [facility] [place] [facility] [address] [id number] [place] [address]- 9919 27 Aug, 2011 [facility] [place] [facility] [address] [id number] [place] [address]- 9570 27 Aug, 2011 [facility] [place] [facility] [address] [id number] [place] [address], [place] [address]- 3185 18 Aug, 2011 [facility] [place] [facility] [address] [id number] [place] [address]- 3618 18 Aug, 2011 [facility] [place] [facility] [address] [id number] [place] [address]- 8652 17 Aug, 2011 [facility] [place] [facility] [address] [id number] [place] [address]- 5548 16 Aug, 2011 [facility] [place] [facility] [address] [id number] [place] [address]- 0168 16 Aug, 2011 [facility] [place] [facility] [address] [facility] [id number] [place] [address]- 5887 15 Aug, 2012 [facility] [place] [facility] [address] [id number] [place] [address]- 6183 09 Aug, 2011 [facility] [place] [facility] [address] [id number] [place] [address]- 6108 05 Aug, 2011 [facility] [place] [facility] [address] [id number] [place] [address]- 4297 05 Aug, 2011 [facility] [place] [facility] [address] [facility] [id number] [place] [address]- 7095 04 Aug, 2012 [facility] [place] [facility] [address] [facility] [id number] [place] [address]- 4763 14 Jul, 2012 [facility] [place] [facility] [address] [id number] [place] [address]- 2716 Jul, [facility] [place] [facility] [address] [id number] [place] [address]- 6906 Jun, [facility] [place] [facility] [address] [id number] [place] [address] 2546 Jun, [facility] [place] [facility] [address] [id number] [place] [address]- 0274 May, [facility] [place] [facility] [address] [id number] [place] [address]- 8697 May, [facility] [place] [facility] [address] [id number] [place] [address]- 7193 May, [facility] [place] [facility] [address] [id number] [place] [address]- 3067 May, [facility] [place] [facility] [address] [id number] [place] [address]- 9845 May, [facility] [place] [facility] [address] [id number] [place] [address]- 6343 May, [facility] [place] [facility] [address] [id number] [place] [address]- 2534 Apr, [facility] [place] [facility] [address] [id number] [place] [address]- 6656 Apr, [facility] [place] [facility] [address] [id number] [place] [address]- 5476 March, [facility] [place] [facility] [address] [id number] [place] [address]- 0632 March, [facility] [place] [facility] [address] [id number] [place] [address]- 4496 March, [facility] [place] [facility] [address] [id number] [place] [address]- 9096 March, [facility] [place] [facility] [address] [id number] [place] [address]- 1142 March, [facility] [address] [id number] [place] [address]- 5933 March, [facility] [place] [facility] [address] [id number] [place] [address]- 5680 Feb, [facility] [place] [facility] [address] [id number] [place] [address]- 5395 Feb, [facility] [place] [facility] [address] [id number] [place] [address]- 2036 Feb, [facility] [place] [facility] [address] [id number] [place] [address]- 3491 Feb, [facility] [place] [facility] [address] [id number] [place] [address]- 3839 Feb, [facility] [place] [facility] [address] [id number] [place] [address]- 9099 Feb, [facility] [place] [facility] [address] [id number] [place] [address]- 2390 Feb, [facility] [place] [facility] [address] [id number] [place] [address]- 9503 Feb, [facility] [place] [facility] [address] [id number] [place] [address]- 9846 Feb, [facility] [place] [facility] [address] [id number] [place] [address]- 9636 Jan, [facility] [place] [facility] [address] [id number] [place] [address]- 0189 Jan, [facility] [place] [facility] [address] [id number] [place] [address]- 8950 Jan, [facility] [place] [facility] [address] [id number] [place] [address]- 3784 Jan, [facility] [place] [facility] [address] [id number] [place] [address]- 3166 Jan, [facility] [place] [facility] [address] [id number] [place] [address]- 6617 20 Jan, 2012 [facility] [place] [facility] [address] [id number] [place] [address]- 5566 14 Jan, 2012 [facility] [place] [facility] [address] [id number] [place] [address]- 8286 09 Jan, 2012 [facility] [place] [facility] [address] [id number] [place] [address]- 2446 09 Jan, 2012 [facility] [place] [facility] [address] [id number] [place] [address] 2545 08 Jan, 2012 [facility] [place] [facility] [address] [id number] [place] [address]- 0491 07 Jan, 2012 [facility] [place] [facility] [address] [id number] [place] [address]- 0633 06 Jan, 2012 [facility] [place] [facility] [address] [id number] [place] [address]- 5412 Jan, [facility] [place] [facility] [address] [id number] [place] [address]- 6255 Jan, [facility] [place] [facility] [address] [id number] [place] [address]- 1021 28 Dec, 2011 [facility] [place] [facility] [address] [facility] [id number] [place] [address]- 0308 27 Dec, 2011 [facility] [place] [facility] [address] [id number] [place] [address] 2546 25 Dec, 2011 [facility] [place] [facility] [address] [id number] [place] [address] 2548 23 Dec, 2011 [facility] [place] [facility] [address] [id number] [place] [address]- 3436 16 Dec, 2011 [facility] [place] [facility] [address] [id number] [place] [address] 2546 08 Dec, 2011 [facility] [place] [facility] [address] [facility] [id number] [place] [address] 2543 Dec, [facility] [place] [facility] [address] [id number] [place] [address]- 8456 Dec, [facility] [place] [facility] [address] [id number] [place] [address]- 9086 Dec, [facility] [place] [facility] [address] [facility] [id number] [place] [address]- 4740 Nov, [facility] [place] [facility] [address] [id number] [place] [address]- 6974 Nov, [facility] [place] [facility] [address] [id number] [place] [address]- 7333 Nov, [facility] [place] [facility] [address] [id number] [place] [address]- 2163 Nov, [facility] [place] [facility] [address] [id number] [place] [address]- 1750 Oct, [facility] [place] [facility] [address] [id number] [place] [address]- 2218 Oct, [facility] [place] [facility] [address] [id number] [place] [address]- 6277 Oct, [facility] [place] [facility] [address] [id number] [place] [address]- 3957 Oct, [facility] [place] [facility] [address] [id number] [place] [address]- 8259 Oct, [facility] [place] [facility] [address] [id number] [place] [address]- 1160 Oct, [facility] [place] [facility] [address] [id number] [place] [address]- 8487 Oct, [facility] [place] [facility] [address] [id number] [place] [address]- 3920 Sep, [facility] [place] [facility] [address] [id number] [place] [address]- 4814 Sep, [facility] [place] [facility] [address] [id number] [place] [address]- 9602 Sep, [facility] [address] [id number] [place] [address]- 9282 Sep, [facility] [place] [facility] [address] [id number] [place] [address]- 8811 Sep, [facility] [address] [id number] [place] [address]- 6058 Sep, [facility] [place] [facility] [address] [id number] [place] [address]- 3258 Sep, [facility] [place] [facility] [address] [id number] [place] [address]- 3369 Sep, [facility] [place] [facility] [address] [id number] [place] [address]- 2701 Sep, [facility] [address] [id number] [place] [address]- 3331 Aug, [facility] [address] [id number] [place] [address]- 1137 Aug, [facility] [place] [facility] [address] [id number] [place] [address]- 9985 Aug, [facility] [address] [id number] [place] [address]- 1172 May, [facility] [place] [facility] [address] [id number] [place] [address]- 4176 Nov, [facility] [place] [facility] [address] [id number] [place] [address]- 9697 Oct, [facility] [place] [facility] [address] [id number] [place] [address]- 7243 Oct, [facility] [place] [facility] [address] [id number] [place] [address]- 9464 Oct, [facility] [place] [facility] [address] [id number] [place] [address]- 9512 Oct, [facility] [place] [facility] [address] [id number] [place] [address]641 Oct, [facility] [address] [id number] [place] [address]- 0695 03 Sep, 2010 [facility] [address] [id number] [place] [address]- 2304 02 Sep, 2010 [facility] [address] [id number] [place] [address]- 7847 14 Jul, 2010 [facility] [address] [id number] [place] [address]- 3431 31 Oct, 2009 [facility] [address] [id number] [place] [address]- 7759 Oct, [facility] [address] [facility] [id number] [place] [address]- 8615 Oct, [facility] [address] [id number] [place] [address]- 2556 Oct, [facility] [address] [id number] [place] [address]- 5507 30 Sep, 2009 [facility] [address] [id number] [place] [address]- 4541 Sep, [facility] [place] [facility] [address] [facility] [id number] [place] [address]- 6042 Sep, [facility] [place] [facility] [address] [id number] [place] [address]- 6830 04 Sep, 2009 [facility] [address] [id number] [place] [address] Sep, [facility] [address] [id number] [place] [address] 11 Jul, 2009 [facility] [address] [id number] [place] [address] 10 Apr, 2009 [facility] [address] [id number] [address] Dec, IMMUNIZATIONS No Known Immunizations SOCIAL HISTORY Never Assessed REASON FOR VISIT Congestion f/u, pt continues to have non-productive cough. GIOVANI Rich, Pt c/o bleeding from rt ear PLAN OF CARE Activity Details Follow Up 3 Months Reason: VITAL SIGNS Height 67 in 2018-10-01 Weight 214.5 lbs 2018-10-01 Temperature 98.2 degrees Fahrenheit 2018-10-01 Heart Rate 67 bpm 2018-10-01 Respiratory Rate 18 2018-10-01 BMI 33.59 kg/m2 2018-10-01 Blood pressure systolic 122 mmHg 2018-10-01 Blood pressure diastolic 84 mmHg 2018-10-01 MEDICATIONS Medication Instructions Dosage Frequency Start Date End Date Duration Status ProAir HFA 90 mcg/actuation inhale 2 puffs by Inhalation route every 4 hours as needed PRN shortness of breath/cough March, Active Levothyroxine Sodium 50 MCG TAKE ONE (1) TABLET BY MOUTH ONCE DAILY 90 Active Prozac 40 mg Orally Once a day 1 capsule 24h 30 Active Metformin HCl 500 mg Orally Twice a day 1 tablet with meals 12h 30 days Active Gabapentin 600 MG Orally Once a day 1 capsule before bedtime 24h Active Protonix 40 MG Orally Once a day 1 tablet 24h 30 Active Flonase 50 MCG/ACT Nasally twice a day 1 spray in each nostril 12h Apr, 30 day(s) Active Trazodone HCl 100 mg Orally Once a day 1 tablet at bedtime 24h 30 Active Albuterol Sulfate (2.5 MG/3ML) 0.083% Inhalation Three times a day 3 ml as needed 8h Aug, Active Oxygen 2 L/NC by inhalation route at bedtime Active Amlodipine Besylate 5 MG TAKE ONE (1) TABLET BY MOUTH ONCE DAILY 30 Active Tramadol HCl 50 mg Orally 3 times a day 1 tablet as needed 8h March, Active Test strips Test Strips subcutaneously 2 times a day, accucheck christiano 1 test strip Dec, Active Atorvastatin Calcium 40 MG TAKE ONE TABLET BY MOUTH DAILY 90 Active Ferrous Sulfate 325 (65 Fe) MG Orally twice a day 1 tablet 12h Jun, 30 day(s) Active Lisinopril 5 MG Orally Once a day 1 tablet 24h Active Anoro Ellipta 62.5-25 MCG/INH Inhalation Once a day 1 puff 24h Sep, Active Naprosyn 500 mg Orally 2 times a day 1 tablet with food or milk as needed 12h 30 Active Gabapentin 300 MG TAKE TWO CAPSULES BY MOUTH THREE TIMES A DAY 90 Active Cyclobenzaprine HCl 10 mg Orally Three [...]
--- OUTSIDE RECORDS SUMMARY | 2018-11-26 15:40 | XMS REPORT ---
Author Author KING FISHMAN Organization [facility] Address [address] [place] [address] Care Team Providers Care Pillowcase Cleaner Name Role Phone KING FISHMAN Unavailable PROBLEMS Type Condition ICD9-CM Code GCL34-AT Code Onset Dates Condition Status SNOMED Code Problem Lumbago with sciatica, left side M54.42 Active 325421829 Problem Other chronic pain G89.29 Active 07311721 Problem Lumbago with sciatica, right side M54.41 Active [id number] Problem Seasonal allergies J30.2 Active 264283315 Problem Iron deficiency anemia due to chronic blood loss D50.0 Active 575976448 Problem Cigarette nicotine dependence without complication F17.210 Active 53575428 Problem Chronic obstructive pulmonary disease, unspecified COPD type J44.9 Active 77820054 Problem Seizures R56.9 Active 09983167 Problem DM 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 Active 76401530 Problem Essential hypertension I10 Active 09906072 Problem Acquired hypothyroidism E03.9 Active 843908969 Problem Mixed hyperlipidemia E78.2 Active 629628955 Problem Reactive depression F32.9 Active 72509962 Problem Prediabetes R73.03 Active 380682411 Problem Gastroesophageal reflux disease, esophagitis presence not specified K21.9 Active 583697803 ALLERGIES No Information ENCOUNTERS Encounter Location Date Diagnosis [facility] [id number], [place] [address] Oct, [address] [id number] [place] [address] 48503- 5299 Sep, Type 2 diabetes mellitus with hyperglycemia E11.65 [place] [id number], [place] [address] Sep, Chronic obstructive pulmonary disease, unspecified COPD type J44.9 ; Abrasion of right ear canal, initial encounter S00.411A ; Cigarette nicotine dependence without complication F17.210 ; Right leg pain M79.604 and Seasonal allergies J30.2 [address] [address] [id number] [place] [address] 90275- 2962 Aug, [place] [id number] [place] [address] 88673- 4035 Aug, [place] [address] 08953- 7063 Aug, Pain in thoracic spine M54.6 [place] [id number] [place] [address] 04153- 2266 Aug, [place] [address] 64324- 2556 Aug, Chronic obstructive pulmonary disease, unspecified COPD type J44.9 ; Complete amputation of right foot, 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 ; Cigarette nicotine dependence without complication F17.210 and BMI 40.0-44.9, adult Z68.41 [place] [id number] [place] [address] 17885- 8912 Jul, [place] [id number] [place] [address] 50706- 2362 Jul, [place] [id number] [place] [address] 54337- 6795 Jul, Onychomycosis B35.1 ; Onychocryptosis L60.0 and DM 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 [place] [id number] [place] [address] 34129- 2240 Jun, Pain in thoracic spine M54.6 [place] [id number] [place] [address] 65134- 2990 Jun, Iron deficiency anemia due to chronic blood loss D50.0 and Hematochezia K92.1 [id number] [place] [address] 42540- 5811 14 Aug, 2018 Gastroenteritis K52.9 and Abnormal RBC indices R71.8 [facility] [address] 09993- 9586 Jun, [facility] [address] 79774- 6476 Jun, Chest congestion R09.89 and Seizures R56.9 [facility] [address] 53359- 3736 May, Pain in thoracic spine M54.6 [facility] [address] 97381- 1976 May, [facility] [address] 23115- 7146 May, [facility] [address] 05810- 8956 May, [facility] [address] 67105- 2747 May, Acute non-recurrent frontal sinusitis J01.10 and Dermatitis L30.9 [facility] [address] 75151- 8396 May, [facility] [id number] [place] [address] 29063- 0217 May, Pain in thoracic spine M54.6 [facility] [address] 18750 2546 May, [facility] [id number] [place] [address] 41816- 2542 May, Acute nasopharyngitis J00 [facility] [address] 77771- 2546 May, [facility] [id number] [place] [address] 32542- 2548 May, [facility] [address] 76817- 6809 Apr, [facility] [address] [place] [address] 46530- 4532 Apr, [facility] [id number] [place] [address] 43591- 8852 Apr, [facility] [id number] [place] [address] 08993- 4016 Apr, [facility] [id number] [place] [address] 97538- 8470 Apr, Pain in right ankle and joints of right foot M25.571 [place] [address] 54711- 0361 Apr, [place] [id number] [place] [address] 16177- 2870 Apr, Bronchitis J40 ; Pain in right ankle and joints of right foot M25.571 ; Other chronic pain G89.29 ; Prediabetes R73.03 ; Chronic obstructive pulmonary disease, unspecified COPD type J44.9 and Cigarette nicotine dependence without complication F17.210 [facility] [id number] [place] [address] 62028 -8006 Apr, Seasonal allergic rhinitis, unspecified trigger J30.2 [place] [id number] [place] [address] 14719- 0458 Apr, Onychomycosis B35.1 ; Onychocryptosis L60.0 and DM 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 [place] [address] [place] [address] 54657- 4940 Apr, Reactive depression F32.9 ; Thoracic myofascial strain, initial encounter S29.019A and Leg cramps R25.2 [facility] [address] [place] [address] 46933- 6727 March, [facility] [id number] [place] [address] 08640- 4283 March, Type 2 diabetes mellitus with hyperglycemia E11.65 [place] [id number] [place] [address] 92563- 8302 March, Reactive depression F32.9 [place] [address] 97588- 0156 March, Pain in thoracic spine M54.6 and Other chronic pain G89.29 [place] [address] 37690- 9992 Feb, [place] [address] 53185- 6917 Jan, Reactive depression F32.9 ; Essential hypertension I10 ; Gastroesophageal reflux disease, esophagitis presence not specified K21.9 ; Lumbago with sciatica, left side M54.42 and Lumbago with sciatica, right side M54.41 [place] [address] 13796- 8859 Jan, Reactive depression F32.9 and Pharyngoesophageal dysphagia R13.14 [place] [address] 47620- 6094 Jan, [place] [address] 98017- 6967 Jan, Encounter for immunization Z23 [place] [address] 82461- 7081 Jan, Onychomycosis B35.1 and DM 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 [place] [id number] [place] [address] 95075- 5514 Jan, [address] 81453- 2864 Jan, Prediabetes R73.03 [place] [address] 62037- 3900 Dec, [place] [id number] [place] [address]- 7546 Dec, Essential hypertension I10 ; Mixed hyperlipidemia E78.2 ; Acquired hypothyroidism E03.9 ; Reactive depression F32.9 and Prediabetes R73.03 [facility] [id number] [place] [address] 42280- 6902 Dec, [place] [address] 86719- 7867 Dec, [facility] [address] 63195- 7362 Dec, DM 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 [facility] [id number] [place] [address] 59483 -8411 Dec, Bruise T14.8XXA ; Type 2 diabetes mellitus with hyperglycemia E11.65 and MCC current use of insulin Z79.4 [place] [id number] [place] [address] 95994- 4494 Oct, [place] [id number] [place] [address] 80729- 4699 March, Onychomycosis B35.1 and DM 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 [place] [id number] [place] [address] 33121- 1178 Jun, [place] [id number] [place] [address] 60779- 1386 Jun, [place] [id number] [place] [address] 22870- 4058 Jun, COPD with acute exacerbation 491.21 [place] [address] 80430- 2893 Apr, [place] [id number] [place] [address] 70010- 9660 Feb, [place] [address] 92000- 4061 Feb, [facility] [place] [facility] [address] [id number] [place] [address]- 7387 Jan, [facility] [place] [facility] [address] [id number] [place] [address]- 4616 Jan, [facility] [place] [facility] [address] [id number] [place] [address]- 2944 Jan, [facility] [place] [facility] [address] [id number] [place] [address]- 9792 Jan, [facility] [place] [facility] [address] [id number] [place] [address]- 2142 Jan, [facility] [place] [facility] [address] [id number] [place] [address]- 0024 Jan, [facility] [place] [facility] [address] [id number] [place] [address]- 2042 Jan, [facility] [place] [facility] [address] [id number] [place] [address]- 2982 Jan, [facility] [place] [facility] [address] [id number] [place] [address]- 0838 Jan, [facility] [place] [facility] [address] [id number] [place] [address]- 0296 Jan, [facility] [place] [facility] [address] [id number] [place] [address]- 9854 19 Jan, 2015 [facility] [place] [facility] [address] [id number] [address]- 9985 18 Jan, 2015 [facility] [place] [facility] [address] [id number] [place] [address]- 7786 18 Jan, 2015 [facility] [place] [facility] [address] [id number] [place] [address]- 0459 16 Jan, 2015 [facility] [place] [facility] [address] [id number] [place] [address]- 8421 16 Jan, 2015 [facility] [place] [facility] [address] [id number] [place] [address]- 9240 16 Jan, 2014 [facility] [place] [facility] [address] [id number] [place] [address]- 0597 16 Jan, 2014 [facility] [place] [facility] [address] [id number] [place] [address]- 5544 15 Jan, 2015 [facility] [place] [facility] [address] [id number] [place] [address]- 0434 13 Jan, 2014 [facility] [place] [facility] [address] [id number] [place] [address]- 3679 13 Jan, 2015 [facility] [place] [facility] [address] [id number] [place] [address]- 3165 13 Jan, 2015 [facility] [place] [facility] [address] [id number] [place] [address]- 9098 13 Jan, 2015 [facility] [place] [facility] [address] [id number] [place] [address]- 2733 12 Jan, 2015 [facility] [place] [facility] [address] [id number] [place] [address]- 8083 04 Jan, 2015 [facility] [place] [facility] [address] [id number] [place] [address]- 5643 04 Jan, 2015 [facility] [place] [facility] [address] [facility] [id number] [place] [address]- 2394 24 Dec, 2014 [facility] [place] [facility] [address] [id number] [place] [address]- 1048 24 Dec, 2014 [facility] [place] [facility] [address] [facility] [id number] [place] [address]- 6325 24 Dec, 2014 [facility] [place] [facility] [address] [id number] [place] [address]- 7140 24 Dec, 2014 [facility] [place] [facility] [address] [id number] [place] [address]- 7301 Dec, 2014 [facility] [place] [facility] [address] [id number] [place] [address]- 4969 Dec, [facility] [place] [facility] [address] [id number] [place] [address]- 1980 Dec, [facility] [place] [facility] [address] [id number] [place] [address]- 5766 Dec, [facility] [place] [facility] [address] [id number] [place] [address]- 6253 Dec, [facility] [place] [facility] [address] [id number] [place] [address]- 1979 Dec, [facility] [place] [facility] [address] [id number] [place] [address]- 7428 Dec, [facility] [place] [facility] [address] [id number] [place] [address]- 7026 Dec, [facility] [place] [facility] [address] [id number] [place] [address]- 3971 Nov, [facility] [place] [facility] [address] [id number] [place] [address]- 4071 Nov, [facility] [place] [facility] [address] [id number] [place] [address]- 7011 Nov, [facility] [place] [facility] [address] [id number] [place] [address]- 2801 Nov, [facility] [place] [facility] [address] [id number], [place] [address]- 5911 Nov, [facility] [place] [facility] [address] [id number], [place] [address]- 0386 Nov, [facility] [place] [facility] [address] [id number] [place] [address]- 1508 Nov, [facility] [place] [facility] [address] [id number], [place] [address]- 2584 Nov, [facility] [place] [facility] [address] [id number] [place] [address]- 4490 Nov, [facility] [place] [facility] [address] [id number] [place] [address]- 3759 Nov, [facility] [address] [id number] [place] [address]- 9851 Nov, [facility] [address] [id number] [place] [address]- 2586 Nov, [facility] [address] [id number] [place] [address]- 8448 Oct, [facility] [address] [id number] [place] [address]- 4027 31 Oct, 2014 [facility] [address] [id number] [place] [address]- 6972 30 Oct, 2014 [facility] [address] [id number] [place] [address]- 4416 30 Oct, 2014 [facility] [address] [id number] [place] [address]- 6920 29 Oct, 2014 [facility] [address] [id number] [place] [address]- 8667 29 Oct, 2014 [facility] [address] [id number] [place] [address]- 3617 23 Oct, 2014 [facility] [address] [id number] [place] [address]- 9385 23 Oct, 2014 [facility] [place] [facility] [address] [id number] [place] [address]- 6925 17 Oct, 2014 [facility] [place] [facility] [address] [id number] [place] [address]- 6494 17 Oct, 2014 [facility] [place] [facility] [address] [id number] [place] [address]- 9404 16 Oct, 2014 [facility] [place] [facility] [address] [id number] [place] [address]- 4870 16 Oct, 2014 [facility] [place] [facility] [address] [id number] [place] [address]- 0484 15 Oct, 2014 [facility] [place] [facility] [address] [id number] [place] [address]- 6792 Oct, [facility] [place] [facility] [address] [id number] [place] [address]- 1500 Oct, [facility] [place] [facility] [address] [id number] [place] [address]- 5703 Sep, [facility] [place] [facility] [address] [id number] [place] [address]- 1433 Sep, [facility] [place] [facility] [address] [id number] [place] [address]- 8338 Sep, [facility] [place] [facility] [address] [id number] [place] [address]- 4542 Sep, [facility] [place] [facility] [address] [id number] [place] [address]- 1932 Aug, [facility] [place] [facility] [address] [id number] [place] [address]- 5652 Aug, [facility] [place] [facility] [address] [id number] [place] [address]- 3252 Aug, [facility] [place] [facility] [address] [id number] [place] [address]- 1922 Aug, [facility] [place] [facility] [address] [facility] [id number] [place] [address]- 1688 Aug, [facility] [place] [facility] [address] [id number], [place] [address]- 9267 Aug, [facility] [place] [facility] [address] [id number] [place] [address]- 6970 Jul, [facility] [place] [facility] [address] [id number] [place] [address]- 9822 29 Jul, 2014 [facility] [place] [facility] [address] [id number], [place] [address]- 8651 15 Jul, 2014 [facility] [place] [facility] [address] [id number], [place] [address]- 0260 Jul, [facility] [place] [facility] [address] [id number] [place] [address]- 4161 Jul, [facility] [place] [facility] [address] [id number] [place] [address]- 4170 Jul, [facility] [place] [facility] [address] [id number] [place] [address]- 9576 Jun, [facility] [place] [facility] [address] [id number] [place] [address]- 7319 Jun, [facility] [place] [facility] [address] [id number] [place] [address]- 4764 Jun, [facility] [place] [facility] [address] [id number] [place] [address]- 7793 Jun, [facility] [place] [facility] [address] [id number] [place] [address]- 2488 Jun, [facility] [place] [facility] [address] [id number] [place] [address]- 4720 Jun, [facility] [place] [facility] [address] [id number] [place] [address]- 0384 Jun, [facility] [place] [facility] [address] [id number] [place] [address]- 9808 May, [facility] [place] [facility] [address] [id number] [place] [address]- 2767 May, [facility] [place] [facility] [address] [id number] [place] [address]- 8315 May, [facility] [place] [facility] [address] [id number] [place] [address]- 9906 May, [facility] [place] [facility] [address] [id number] [place] [address]- 1935 May, [facility] [place] [facility] [address] [id number] [place] [address]- 2520 May, [facility] [place] [facility] [address] [id number] [place] [address]- 0624 May, 2013 [facility] [place] [facility] [address] [id number] [place] [address]- 3219 May, [facility] [place] [facility] [address] [id number] [place] [address]- 7726 May, [facility] [place] [facility] [address] [id number] [place] [address]- 4097 May, 2013 [facility] [place] [facility] [address] [id number] [place] [address]- 3056 May, [facility] [place] [facility] [address] [id number] [place] [address]- 9707 May, [facility] [place] [facility] [address] [id number] [place] [address]- 5226 Apr, [facility] [place] [facility] [address] [id number] [place] [address]- 1373 Apr, [facility] [place] [facility] [address] [id number] [place] [address]- 7432 Apr, [facility] [place] [facility] [address] [id number] [place] [address]- 3968 Apr, [facility] [place] [facility] [address] [id number] [place] [address]- 7908 Apr, [facility] [place] [facility] [address] [id number] [place] [address]- 2315 Apr, [facility] [place] [facility] [address] [id number] [place] [address]- 7537 Apr, [facility] [place] [facility] [address] [id number] [place] [address]- 7903 Apr, [facility] [place] [facility] [address] [id number] [place] [address]- 0198 Apr, [facility] [place] [facility] [address] [id number] [place] [address]- 2751 Apr, [facility] [place] [facility] [address] [id number] [place] [address]- 1749 March, [facility] [place] [facility] [address] [id number] [place] [address]- 2456 March, [facility] [place] [facility] [address] [id number] [place] [address]- 9803 March, [facility] [place] [facility] [address] [id number] [place] [address]- 2057 March, [facility] [place] [facility] [address] [id number] [place] [address]- 6736 March, [facility] [place] [facility] [address] [id number] [place] [address] March, [facility] [place] [facility] [address] [id number] [place] [address] Feb, [facility] [place] [facility] [address] [id number] [place] [address] Feb, [facility] [place] [facility] [address] [id number] [place] [address] Feb, [facility] [place] [facility] [address] [id number] [place] [address] Feb, [facility] [place] [facility] [address] [id number] [place] [address] Feb, [facility] [place] [facility] [address] [id number] [place] [address] Feb, [facility] [place] [facility] [address] [id number] [place] [address] Feb, [facility] [place] [facility] [address] [id number] [place] [address] Feb, [facility] [place] [facility] [address] [id number] [place] [address] Feb, [facility] [place] [facility] [address] [id number] [place] [address] Feb, [facility] [place] [facility] [address] [id number] [place] [address] Jan, [facility] [place] [facility] [address] [id number] [place] [address] Jan, [facility] [place] [facility] [address] [facility] [id number] [place] [address] Jan, [facility] [place] [facility] [address] [id number] [place] [address] Jan, [facility] [place] [facility] [address] [id number] [place] [address] Jan, [facility] [place] [facility] [address] [facility] [id number] [place] [address] Jan, [facility] [place] [facility] [address] [id number] [place] [address] Jan, [facility] [place] [facility] [address] [facility] [id number] [place] [address] Jan, [facility] [place] [facility] [address] [id number] [place] [address] Dec, [facility] [place] [facility] [address] [facility] [id number] [place] [address] Dec, [facility] [place] [facility] [address] [facility] [id number] [place] [address] Dec, [facility] [place] [facility] [address] [facility] [id number] [place] [address] Dec, [facility] [place] [facility] [address] [id number] [place] [address] Dec, [facility] [place] [facility] [address] [facility] [id number] [place] [address] Dec, [facility] [place] [facility] [address] [facility] [id number] [place] [address] Dec, [facility] [address] [id number] [place] [address] Dec, [facility] [place] [facility] [address] [id number] [place] [address] Nov, [facility] [place] [facility] [address] [id number] [place] [address] Nov, [facility] [place] [facility] [address] [id number] [place] [address] Nov, [facility] [place] [facility] [address] [id number] [place] [address] Nov, [facility] [place] [facility] [address] [id number] [place] [address] Nov, [facility] [place] [facility] [address] [id number] [place] [address] Nov, [facility] [place] [facility] [address] [id number] [place] [address] Nov, [facility] [place] [facility] [address] [id number] [place] [address] Nov, [facility] [place] [facility] [address] [id number] [place] [address] Nov, [facility] [place] [facility] [address] [id number] [place] [address] Nov, [facility] [place] [facility] [address] [id number] [address] Nov, [facility] [place] [facility] [address] [id number] [place] [address] Oct, [facility] [place] [facility] [address] [id number] [place] [address] Oct, [facility] [place] [facility] [address] [id number] [place] [address] Oct, [facility] [place] [facility] [address] [id number] [place] [address] Oct, [facility] [place] [facility] [address] [id number] [place] [address] Sep, [facility] [place] [facility] [address] [id number] [place] [address] 54[address] Sep, [facility] [place] [facility] [address] [id number] [place] [address] 2446 Sep, [facility] [place] [facility] [address] [id number] [place] [address] 479[address] Sep, [facility] [place] [facility] [address] [id number] [place] [address] 8539 Aug, [facility] [place] [facility] [address] [id number] [place] [address] 5499 Aug, [facility] [place] [facility] [address] [id number] [place] [address] 9893 Aug, [facility] [place] [facility] [address] [id number] [place] [address] 5458 Aug, [facility] [place] [facility] [address] [id number] [place] [address]600 Aug, [facility] [place] [facility] [address] [facility] [id number] [place] [address] 9165 Aug, [facility] [place] [facility] [address] [id number] [place] [address] 9341 Aug, [facility] [place] [facility] [address] [id number] [place] [address]- 1670 Aug, [facility] [place] [facility] [address] [id number] [place] [address]- 4642 Jul, [facility] [place] [facility] [address] [id number] [place] [address] 378[address] Jul, [facility] [place] [facility] [address] [facility] [id number] [place] [address]- 6725 Jul, [facility] [place] [facility] [address] [id number] [place] [address] 2547 24 Jul, 2012 [facility] [place] [facility] [address] [id number] [place] [address] 2546 24 Jul, 2012 [facility] [place] [facility] [address] [id number] [place] [address] 2546 23 Jul, 2012 [facility] [place] [facility] [address] [id number] [place] [address] 2546 19 Sep, 2012 [facility] [place] [facility] [address] [id number] [place] [address] 2548 18 Jul, 2012 [facility] [place] [facility] [address] [id number] [place] [address]- 5515 17 Jul, 2012 [facility] [place] [facility] [address] [id number] [place] [address]- 7002 16 Jul, 2012 [facility] [place] [facility] [address] [id number] [place] [address]- 3851 13 Jul, 2012 [facility] [place] [facility] [address] [id number] [place] [address]- 8163 13 Jul, 2012 [facility] [place] [facility] [address] [id number] [place] [address]- 6866 12 Jul, 2012 [facility] [place] [facility] [address] [id number] [place] [address]- 2549 11 Jul, 2012 [facility] [place] [facility] [address] [id number] [place] [address]- 254 04 Jul, 2012 [facility] [place] [facility] [address] [id number] [place] [address]- 5418 30 Jun, 2013 [facility] [place] [facility] [address] [id number] [place] [address]- 2540 Jun, [facility] [place] [facility] [address] [id number] [place] [address]- 2543 Jun, [facility] [place] [facility] [address] [id number] [place] [address]- 8095 May, [facility] [address] [id number] [place] [address]- 9252 May, [facility] [place] [facility] [address] [id number] [place] [address]- 0521 May, [facility] [place] [facility] [address] [id number] [place] [address]- 7688 May, [facility] [place] [facility] [address] [id number] [place] [address]- 9279 Apr, [facility] [place] [facility] [address] [id number] [place] [address]- 8497 Apr, [facility] [place] [facility] [address] [id number] [place] [address]- 7119 Apr, [facility] [place] [facility] [address] [id number] [place] [address]- 2387 Apr, [facility] [place] [facility] [address] [id number] [place] [address]- 1573 March, [facility] [place] [facility] [address] [id number] [place] [address]- 6426 March, [facility] [place] [facility] [address] [id number] [place] [address]- 8884 March, [facility] [place] [facility] [address] [id number] [place] [address]- 0675 Feb, [facility] [place] [facility] [address] [id number] [place] [address]- 9759 Feb, [facility] [place] [facility] [address] [id number] [place] [address]- 3071 Jan, [facility] [place] [facility] [address] [id number] [place] [address]- 1994 Jan, [facility] [place] [facility] [address] [id number] [place] [address]- 8970 Jan, [facility] [place] [facility] [address] [id number] [place] [address]- 2763 Jan, [facility] [address] [id number] [place] [address]- 5157 Jan, [facility] [place] [facility] [address] [id number] [place] [address] 2546 Dec, [facility] [place] [facility] [address] [id number] [place] [address]- 1046 Dec, [facility] [place] [facility] [address] [id number] [place] [address] 2548 Dec, [facility] [place] [facility] [address] [id number] [place] [address]- 8036 Dec, [facility] [place] [facility] [address] [id number] [place] [address]- 3590 Dec, [facility] [place] [facility] [address] [id number] [place] [address] 2541 Dec, [facility] [place] [facility] [address] [id number] [place] [address]- 0457 Dec, [facility] [place] [facility] [address] [id number] [place] [address]- 0333 Dec, [facility] [place] [facility] [address] [id number] [place] [address]- 9098 Nov, [facility] [place] [facility] [address] [id number] [place] [address] 2540 Nov, [facility] [place] [facility] [address] [id number] [place] [address]- 7421 Nov, [facility] [place] [facility] [address] [id number] [place] [address] 2546 Nov, [facility] [place] [facility] [address] [id number] [place] [address] 2547 Nov, [facility] [place] [facility] [address] [id number] [place] [address]- 0486 Nov, [facility] [place] [facility] [address] [id number] [place] [address]- 4367 Nov, [facility] [place] [facility] [address] [id number] [place] [address]- 6462 Oct, [facility] [place] [facility] [address] [id number] [place] [address]- 3548 Oct, [facility] [place] [facility] [address] [id number] [place] [address] Oct, [facility] [place] [facility] [address] [id number] [place] [address]- 5491 Oct, [facility] [place] [facility] [address] [id number] [place] [address]- 4633 Oct, [facility] [place] [facility] [address] [id number] [place] [address]- 7108 Oct, [facility] [place] [facility] [address] [id number] [place] [address]- 9393 Oct, [facility] [place] [facility] [address] [id number] [place] [address]- 7506 Oct, [facility] [place] [facility] [address] [id number] [place] [address]- 6686 Sep, [facility] [place] [facility] [address] [id number] [address] 6423 Sep, [facility] [place] [facility] [address] [id number], [place] [address]- 2723 Sep, [facility] [place] [facility] [address] [id number] [place] [address]- 0789 Sep, [facility] [place] [facility] [address] [id number] [place] [address]- 6077 Sep, [facility] [place] [facility] [address] [id number] [place] [address]- 5330 Sep, [facility] [place] [facility] [address] [id number] [place] [address]- 1034 Sep, [facility] [place] [facility] [address] [id number] [place] [address]- 4457 Sep, [facility] [place] [facility] [address] [id number] [place] [address]- 5643 Sep, [facility] [place] [facility] [address] [id number] [place] [address]- 9635 Sep, [facility] [place] [facility] [address] [id number] [place] [address]- 7437 Sep, [facility] [place] [facility] [address] [id number] [place] [address]- 9820 Sep, [facility] [place] [facility] [address] [id number] [place] [address]- 0587 Sep, [facility] [place] [facility] [address] [facility] [id number] [place] [address]- 5356 Sep, [facility] [place] [facility] [address] [id number] [place] [address]- 9164 Sep, [facility] [place] [facility] [address] [id number] [place] [address]- 3177 Sep, [facility] [place] [facility] [address] [facility] [id number] [place] [address]- 4741 Sep, [facility] [place] [facility] [address] [id number] [place] [address]- 2723 Sep, [facility] [place] [facility] [address] [id number] [place] [address]- 0059 Sep, [facility] [place] [facility] [address] [id number] [place] [address]- 0632 Sep, [facility] [place] [facility] [address] [facility] [id number] [place] [address]- 3305 Aug, [facility] [place] [facility] [address] [id number] [place] [address]- 9071 Aug, [facility] [place] [facility] [address] [id number] [place] [address]- 0726 29 Aug, 2011 [facility] [place] [facility] [address] [id number] [place] [address]- 6036 27 Aug, 2011 [facility] [place] [facility] [address] [id number] [place] [address]- 3034 27 Aug, 2012 [facility] [place] [facility] [address] [id number] [place] [address]- 5959 18 Aug, 2012 [facility] [place] [facility] [address] [id number] [place] [address]- 4069 18 Aug, 2012 [facility] [place] [facility] [address] [id number] [place] [address]- 1138 17 Aug, 2012 [facility] [place] [facility] [address] [id number] [place] [address]- 3397 16 Aug, 2012 [facility] [place] [facility] [address] [id number], [place] [address]- 4071 16 Aug, 2012 [facility] [place] [facility] [address] [id number] [place] [address]- 8260 15 Aug, 2012 [facility] [place] [facility] [address] [id number], [place] [address]- 7816 09 Aug, 2012 [facility] [place] [facility] [address] [facility] [id number], [place] [address]- 4202 05 Aug, 2012 [facility] [place] [facility] [address] [id number], [place] [address]- 7501 05 Aug, 2012 [facility] [place] [facility] [address] [id number], [place] [address]- 4033 04 Aug, 2012 [facility] [place] [facility] [address] [id number] 1211 14 Jul, 2012 [facility] [place] [facility] [address] [id number] [address] 10 Jul, 2012 [facility] [place] [facility] [address] [id number], [place] [address]- 3281 Jun, [facility] [place] [facility] [address] [id number] [place] [address]- 9451 Jun, [facility] [place] [facility] [address] [id number] [place] [address]- 9356 May, [facility] [place] [facility] [address] [id number] [place] [address]- 4926 May, [facility] [place] [facility] [address] [id number] [place] [address]- 9949 May, [facility] [place] [facility] [address] [id number] [place] [address]- 2486 May, [facility] [place] [facility] [address] [id number] [place] [address]- 7999 May, [facility] [place] [facility] [address] [id number] [place] [address]- 6343 May, [facility] [place] [facility] [address] [id number] [place] [address]- 5579 Apr, [facility] [place] [facility] [address] [id number] [place] [address]- 8261 Apr, [facility] [place] [facility] [address] [id number] [place] [address]- 7371 March, [facility] [place] [facility] [address] [id number] [place] [address]- 7278 March, [facility] [place] [facility] [address] [id number] [place] [address]- 0949 March, [facility] [place] [facility] [address] [id number] [place] [address]- 1592 March, [facility] [place] [facility] [address] [id number] [place] [address]- 5638 March, [facility] [place] [facility] [address] [id number] [place] [address]- 0915 March, [facility] [place] [facility] [address] [id number] [place] [address]- 6862 30 Feb, 2012 [facility] [address] [id number] [place] [address]- 1486 27 Feb, 2012 [facility] [place] [facility] [address] [id number] [place] [address]- 6746 Feb, [facility] [address] [id number] [place] [address]- 2686 Feb, [facility] [place] [facility] [address] [id number] [place] [address]- 1577 23 Feb, 2012 [facility] [address] [id number] [place] [address]- 3549 Feb, [facility] [address] [id number] [place] [address]- 6043 10 Feb, 2012 [facility] [address] [id number] [place] [address]- 1516 Feb, [facility] [address] [id number] [place] [address]- 9807 04 Feb, 2012 [facility] [place] [facility] [address] [id number] [place] [address]- 1656 30 Jan, 2012 [facility] [address] [id number] [place] [address]- 3557 27 Jan, 2012 [facility] [place] [facility] [address] [id number] [place] [address]- 5416 Jan, [facility] [place] [facility] [address] [id number] [place] [address]- 3054 22 Jan, 2012 [facility] [place] [facility] [address] [id number] [place] [address]- 8486 21 Jan, 2012 [facility] [place] [facility] [address] [id number] [place] [address]- 2586 20 Jan, 2012 [facility] [place] [facility] [address] [id number] [place] [address]- 8439 14 Jan, 2012 [facility] [place] [facility] [address] [id number] [place] [address]- 7492 Jan, [facility] [place] [facility] [address] [id number] [place] [address]- 1346 Jan, [facility] [place] [facility] [address] [id number] [place] [address]- 9880 08 Jan, 2012 [facility] [place] [facility] [address] [id number] [place] [address]- 2866 Jan, [facility] [place] [facility] [address] [id number] [place] [address]- 9437 06 Jan, 2012 [facility] [place] [facility] [address] [id number] [place] [address]- 8189 Jan, [facility] [place] [facility] [address] [facility] [id number] [place] [address]- 6647 Jan, [facility] [place] [facility] [address] [id number] [place] [address]- 6820 28 Dec, 2011 [facility] [place] [facility] [address] [id number] [place] [address]- 3708 27 Dec, 2011 [facility] [place] [facility] [address] [facility] [id number] [place] [address]- 1533 25 Dec, 2011 [facility] [place] [facility] [address] [id number] [place] [address]- 1022 23 Dec, 2011 [facility] [place] [facility] [address] [id number] [place] [address]- 4324 16 Dec, 2011 [facility] [place] [facility] [address] [id number] [place] [address]- 4866 08 Dec, 2011 [facility] [place] [facility] [address] [facility] [id number] [place] [address]- 1702 08 Dec, 2011 [facility] [place] [facility] [address] [facility] [id number] [place] [address]- 4870 07 Dec, 2011 [facility] [place] [facility] [address] [id number] [place] [address]- 9156 07 Dec, 2011 [facility] [address] [id number] [place] [address]- 4542 Nov, [facility] [place] [facility] [address] [id number] [place] [address]- 0036 Nov, [facility] [address] [id number] [place] [address]- 0778 Nov, [facility] [place] [facility] [address] [id number] [place] [address]- 6550 Nov, [facility] [address] [id number] [place] [address]- 2149 Oct, [facility] [place] [facility] [address] [id number] [place] [address]- 7221 Oct, [facility] [place] [facility] [address] [id number] [place] [address]- 1797 Oct, [facility] [address] [id number] [place] [address]- 9188 Oct, [facility] [place] [facility] [address] [id number] [place] [address]- 4621 Oct, [facility] [place] [facility] [address] [id number] [place] [address]- 8816 Oct, [facility] [place] [facility] [address] [id number] [place] [address]- 5561 Oct, [facility] [place] [facility] [address] [id number] [place] [address]- 0204 Sep, [facility] [place] [facility] [address] [id number] [place] [address]- 1771 Sep, [facility] [place] [facility] [address] [id number] [place] [address]- 9156 Sep, [facility] [place] [facility] [address] [id number] [place] [address]- 0508 Sep, [facility] [place] [facility] [address] [id number] [place] [address]- 0635 Sep, [facility] [place] [facility] [address] [id number] [place] [address]- 0185 Sep, [facility] [place] [facility] [address] [id number] [place] [address]- 1628 Sep, [facility] [place] [facility] [address] [id number] [place] [address]- 6523 Sep, [facility] [place] [facility] [address] [id number] [place] [address]- 9867 Sep, [facility] [place] [facility] [address] [id number] [place] [address]- 7810 Aug, [facility] [place] [facility] [address] [id number] [place] [address]- 3880 Aug, [facility] [place] [facility] [address] [id number] [place] [address]- 4049 Aug, [facility] [place] [facility] [address] [id number] [place] [address]- 0295 May, [facility] [place] [facility] [address] [id number] [place] [address]- 2562 Nov, [facility] [place] [facility] [address] [id number], [place] [address]- 7455 Oct, [facility] [place] [facility] [address] [id number], [place] [address]- 4927 Oct, [facility] [place] [facility] [address] [id number] [place] [address] Oct, [facility] [place] [facility] [address] [id number] [place] [address] Oct, [facility] [place] [facility] [address] [id number] [place] [address] Oct, [facility] [place] [facility] [id number] [address] 03 Sep, 2010 [facility] [id number] [address] 02 Sep, 2010 [facility] [id number] [address] 14 Jul, 2010 [facility] [id number] [address] Oct, [facility] [id number] [address] Oct, [facility] [id number] [place] [address] Oct, [facility] [id number] [address] Oct, [facility] [id number] [place] [address] 30 Sep, 2009 [facility] [id number] [address] Sep, [facility] [id number] [address] Sep, [facility] [id number] [address] Sep, [facility] [id number] [address] Sep, [facility] [id number] [address] Jul, [facility] [id number] [address] Apr, [facility] [id number], [place] [address] 12 Dec, 2008 IMMUNIZATIONS No Known Immunizations SOCIAL HISTORY Never Assessed REASON FOR VISIT Requests return call PLAN OF CARE VITAL SIGNS MEDICATIONS Medication Instructions Dosage Frequency Start Date End Date Duration Status Test strips Test Strips subcutaneously 2 times a day, accucheck christiano 1 test strip Dec, Active RESULTS No Results PROCEDURES No Known [...]
--- OUTSIDE RECORDS SUMMARY | 2018-11-26 15:41 | XMS REPORT ---
Author Author KING FISHMAN [facility] Address [address] [place] [address] Care Team Providers Care Rehabilitation Therapist Name Role Phone KING FISHMAN Unavailable PROBLEMS Type Condition ICD9-CM Code JFG27-OD Code Onset Dates Condition Status SNOMED Code Problem Lumbago with sciatica, left side M54.42 Active 455026813 Problem Other chronic pain G89.29 Active 12604402 Problem Lumbago with sciatica, right side M54.41 Active [id number] Problem Iron deficiency anemia due to chronic blood loss D50.0 Active 634346379 Problem Seizures R56.9 Active 66493220 Problem Chronic obstructive pulmonary disease, unspecified COPD type J44.9 Active 59581420 Problem Pain in right ankle and joints of right foot M25.571 Active 71757812851145 Problem DM 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 Active 95744705 Problem Cigarette nicotine dependence without complication F17.210 Active 80187757 Problem Mixed hyperlipidemia E78.2 Active 460119427 Problem Essential hypertension I10 Active 56873748 Problem Prediabetes R73.03 Active 495479428 Problem Acquired hypothyroidism E03.9 Active 338204241 Problem Reactive depression F32.9 Active 30477640 Problem Gastroesophageal reflux disease, esophagitis presence not specified K21.9 Active 600939454 ALLERGIES No Information ENCOUNTERS Encounter Location Date Diagnosis [facility] [address] [facility] [id number] [address] Oct, [facility] [id number] [place] [address] 29361- 5312 Sep, [facility] [address] [address] 3[address] Aug, [facility] [id number] [place] [address] 06929- 5913 Aug, Chronic obstructive pulmonary disease, unspecified COPD type J44.9 ; Complete amputation of right foot, 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 ; Cigarette nicotine dependence without complication F17.210 and BMI 40.0-44.9, adult Z68.41 [place] [id number] [place] [address] 20331- 6716 Jul, [address] [address]- [address] Jul, [place] [address] [address]01- 8937 Jul, Onychomycosis B35.1 ; Onychocryptosis L60.0 and DM 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 [place] [id number] [place] [address] 47723- 1607 Jun, Pain in thoracic spine M54.[address] 8[address]27- 5373 Jun, Iron deficiency anemia due to chronic blood loss D50.0 and Hematochezia K92.[address] 99270- 8364 Jun, Gastroenteritis K52.9 and Abnormal RBC indices R71.8 [place] [id number] [place] [address] 34228- 0505 Jun, [address] 35348- 3563 Jun, Chest congestion R09.89 and Seizures R56.[address] 77606- 5729 May, Pain in thoracic spine M54.6 [place] [id number] [place] [address] 32545- 8464 May, [address] 36304- 4161 May, [facility] [id number] [place] [address] 74390- 0368 May, [facility] [id number] [place] [address] 63237- 2018 May, Acute non-recurrent frontal sinusitis J01.10 and Dermatitis L30.9 [facility] [id number] [place] [address] 46075- 8906 May, [facility] [id number] [place] [address] 61255- 2682 May, Pain in thoracic spine M54.6 [facility] [id number] [place] [address] 03748- 9187 May, [facility] [id number] [place] [address] 10005- 7065 May, Acute nasopharyngitis J00 [facility] [id number] [place] [address] 24773- 6600 May, [facility] [id number] [place] [address] 95773- 2760 May, [facility] [id number] [place] [address] 78268- 8549 Apr, [facility] [id number] [place] [address] 16899- 9127 Apr, [facility] [id number] [place] [address] 70724- 2541 Apr, [facility] [id number] [place] [address] 75415- 0691 Apr, [facility] [id number] [place] [address] 13875- 2322 Apr, Pain in right ankle and joints of right foot M25.571 [facility] [id number] [place] [address] 60260- 8680 Apr, [facility] [id number] [place] [address] 36856- 9661 18 Apr, 2018 Bronchitis J40 ; Pain in right ankle and joints of right foot M25.571 ; Other chronic pain G89.29 ; Prediabetes R73.03 ; Chronic obstructive pulmonary disease, unspecified COPD type J44.9 and Cigarette nicotine dependence without complication F17.210 [facility] [address] 7[address]53 -5815 13 Apr, 2018 Seasonal allergic rhinitis, unspecified trigger J30.2 [place] [address] 50302- 6312 08 Apr, 2018 Onychomycosis B35.1 ; Onychocryptosis L60.0 and DM 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 53920- 3674 Apr, Reactive depression F32.9 ; Thoracic myofascial strain, initial encounter S29.019A and Leg cramps R25.2 [place] [address] 87221- 6029 March, [address] 40309- 5129 March, Type 2 diabetes mellitus with hyperglycemia E11.65 [place] [address] 95102- 5150 March, Reactive depression F32.9 [place] [address] 74493- 2565 March, Pain in thoracic spine M54.6 and Other chronic pain G89.29 [place] [address] 31720- 3188 Feb, [place] [address] 20307- 2191 Jan, Reactive depression F32.9 ; Essential hypertension I10 ; Gastroesophageal reflux disease, esophagitis presence not specified K21.9 ; Lumbago with sciatica, left side M54.42 and Lumbago with sciatica, right side M54.41 [place] [address] 90354- 7903 Jan, Reactive depression F32.9 and Pharyngoesophageal dysphagia R13.14 [place] [address] 23917- 9111 Jan, [place] [address] 33119- 2798 Jan, Encounter for immunization Z23 [place] [address] 32802- 5799 Jan, Onychomycosis B35.1 and DM 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 [place] [address] 71666- 9328 Jan, [place] [address] 99514- 8554 Jan, Prediabetes R73.03 [place] [address] 50443- 3856 Dec, [place] [address] 61863- 9646 Dec, Essential hypertension I10 ; Mixed hyperlipidemia E78.2 ; Acquired hypothyroidism E03.9 ; Reactive depression F32.9 and Prediabetes R73.03 [place] [address] 04826- 8573 Dec, [place] [address] 31431- 2076 Dec, [place] [address] 95561- 1857 Dec, DM 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 [facility] [address] 74330 -8541 Dec, Bruise T14.8XXA ; Type 2 diabetes mellitus with hyperglycemia E11.65 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 [facility] [id number] [place] [address] 95825- 2138 Oct, [facility] [id number] [place] [address] 75442- 8436 March, Onychomycosis B35.1 and DM 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 [facility] [id number] [place] [address] 42163- 7877 Jun, [facility] [id number] [place] [address] 22357- 2979 Jun, [facility] [id number] [place] [address] 03098- 2747 Jun, COPD with acute exacerbation 491.21 [facility] [id number] [place] [address] 65566- 9140 Apr, [facility] [id number] [place] [address] 24742- 3216 Feb, [facility] [id number] [place] [address] 20252- 7947 Feb, [facility] [id number] [place] [address] 92670- 6045 Jan, [facility] [address] [address]- 3900 Jan, [facility] [id number] [place] [address] 41782- 7037 Jan, [facility] [id number] [place] [address] 20156- 1790 Jan, [facility] [address], [place] [address]- 3032 Jan, [facility] [id number] [place] [address] 04648- 7492 23 Jan, 2015 [facility] [place] [facility] [address] [id number] [place] [address]- 3247 23 Jan, 2014 [facility] [place] [facility] [address] [id number] [place] [address]- 4601 23 Jan, 2014 [facility] [place] [facility] [address] [id number] [place] [address]- 4378 23 Jan, 2015 [facility] [place] [facility] [address] [id number] [place] [address]- 1600 19 Jan, 2014 [facility] [place] [facility] [address] [id number] [place] [address]- 7819 19 Jan, 2015 [facility] [place] [facility] [address] [id number] [place] [address]- 8249 18 Jan, 2015 [facility] [place] [facility] [address] [id number] [place] [address]- 1526 18 Jan, 2015 [facility] [place] [facility] [address] [id number] [place] [address]- 1851 16 Jan, 2014 [facility] [place] [facility] [address] [id number] [place] [address]- 4899 16 Jan, 2015 [facility] [place] [facility] [address] [id number] [place] [address]- 3408 16 Jan, 2014 [facility] [place] [facility] [address] [id number] [place] [address]- 9728 16 Jan, 2014 [facility] [place] [facility] [address] [id number], [place] [address]- 7135 15 Jan, 2014 [facility] [place] [facility] [address] [id number] [place] [address]- 6243 13 Jan, 2014 [facility] [place] [facility] [address] [id number] [place] [address]- 8066 13 Jan, 2015 [facility] [place] [facility] [address] [id number] [place] [address]- 4942 13 Jan, 2014 [facility] [place] [facility] [address] [id number] [place] [address]- 5504 13 Jan, 2014 [facility] [place] [facility] [address] [id number] [place] [address]- 6038 12 Jan, 2014 [facility] [place] [facility] [address] [id number] [place] [address]- 9351 Jan, [facility] [place] [facility] [address] [facility] [id number] [place] [address]- 0475 Jan, 2014 [facility] [place] [facility] [address] [id number] [place] [address]- 9405 24 Dec, 2014 [facility] [place] [facility] [address] [id number] [place] [address]- 7405 24 Dec, 2014 [facility] [place] [facility] [address] [facility] [id number] [place] [address]- 5776 24 Dec, 2014 [facility] [place] [facility] [address] [facility] [id number] [place] [address]- 2553 24 Dec, 2014 [facility] [place] [facility] [address] [facility] [id number] [place] [address]- 6792 Dec, 2014 [facility] [place] [facility] [address] [facility] [id number] [place] [address]- 3435 23 Dec, 2014 [facility] [place] [facility] [address] [facility] [id number] [place] [address]- 8793 20 Dec, 2014 [facility] [place] [facility] [address] [facility] [id number] [place] [address]- 7106 20 Dec, 2014 [facility] [place] [facility] [address] [facility] [id number] [place] [address]- 4280 19 Dec, 2014 [facility] [place] [facility] [address] [facility] [id number] [place] [address]- 1165 19 Dec, 2014 [facility] [place] [facility] [address] [facility] [id number] [place] [address]- 2979 16 Dec, 2014 [facility] [place] [facility] [address] [facility] [id number] [place] [address]- 7976 Dec, [facility] [place] [facility] [address] [id number] [place] [address]- 5746 Nov, [facility] [place] [facility] [address] [id number] [place] [address]- 5149 Nov, [facility] [place] [facility] [address] [id number] [place] [address]- 6215 Nov, [facility] [place] [facility] [address] [id number] [place] [address]- 9313 Nov, [facility] [place] [facility] [address] [id number] [place] [address]- 5132 Nov, [facility] [place] [facility] [address] [id number] [place] [address]- 3171 Nov, [facility] [place] [facility] [address] [id number] [place] [address]- 1690 Nov, [facility] [place] [facility] [address] [id number] [place] [address]- 6747 Nov, [facility] [place] [facility] [address] [id number] [place] [address]- 7870 Nov, [facility] [place] [facility] [address] [id number] [place] [address]- 1791 Nov, [facility] [place] [facility] [address] [id number] [place] [address]- 0194 Nov, [facility] [place] [facility] [address] [id number] [place] [address]- 3202 Nov, [facility] [place] [facility] [address] [id number] [place] [address]- 4746 Oct, [facility] [place] [facility] [address] [id number] [place] [address]- 2291 Oct, [facility] [place] [facility] [address] [id number] [place] [address]- 5662 Oct, [facility] [place] [facility] [address] [id number] [place] [address]- 4375 30 Oct, 2014 [facility] [address] [id number] [place] [address]- 0064 29 Oct, 2014 [facility] [place] [facility] [address] [id number] [place] [address]- 0326 29 Oct, 2014 [facility] [place] [facility] [address] [id number] [place] [address]- 7236 Oct, [facility] [place] [facility] [address] [id number] [place] [address]- 6597 23 Oct, 2014 [facility] [place] [facility] [address] [id number] [place] [address]- 6375 17 Oct, 2014 [facility] [place] [facility] [address] [id number] [place] [address]- 5969 17 Oct, 2014 [facility] [place] [facility] [address] [id number] [place] [address]- 7044 16 Oct, 2014 [facility] [place] [facility] [address] [id number] [place] [address]- 7660 16 Oct, 2014 [facility] [place] [facility] [address] [id number] [place] [address]- 5594 15 Oct, 2014 [facility] [place] [facility] [address] [id number] [place] [address]- 4890 15 Oct, 2014 [facility] [place] [facility] [address] [id number] [place] [address]- 0805 08 Oct, 2014 [facility] [place] [facility] [address] [id number] [place] [address]- 2429 24 Sep, 2014 [facility] [place] [facility] [address] [id number] [place] [address]- 5426 Sep, [facility] [place] [facility] [address] [id number] [place] [address]- 4414 Sep, [facility] [place] [facility] [address] [id number] [place] 6959 Sep, [facility] [place] [facility] [address] [id number] [place] [address]- 6478 Aug, [facility] [place] [facility] [address] [id number] [place] [address]- 4361 Aug, [facility] [place] [facility] [address] [id number] [place] [address]- 2231 Aug, [facility] [place] [facility] [address] [id number] [place] [address]- 1411 Aug, [facility] [place] [facility] [address] [id number] [place] [address]- 4251 Aug, [facility] [place] [facility] [address] [id number] [place] [address]- 5778 Aug, [facility] [place] [facility] [address] [id number] [place] [address]- 3111 Jul, [facility] [place] [facility] [address] [id number] [place] [address]- 4704 29 Jul, 2014 [facility] [place] [facility] [address] [id number] [place] [address]- 0279 15 Jul, 2014 [facility] [place] [facility] [address] [id number], [place] [address]- 6851 15 Jul, 2014 [facility] [place] [facility] [address] [id number], [place] [address]- 8338 08 Jul, 2014 [facility] [place] [facility] [address] [id number], [place] [address]- 2122 08 Jul, 2014 [facility] [place] [facility] [address] [id number] [place] [address]- 4652 Jun, [facility] [place] [facility] [address] [id number] [place] [address]- 5331 Jun, [facility] [place] [facility] [address] [id number], [place] [address]- 2949 Jun, [facility] [place] [facility] [address] [id number], [place] [address]- 1750 Jun, [facility] [place] [facility] [address] [id number] [place] [address]- 0436 Jun, [facility] [place] [facility] [address] [id number] [place] [address]- 4612 Jun, [facility] [place] [facility] [address] [id number] [place] [address]- 2067 Jun, [facility] [place] [facility] [address] [id number] [place] [address]- 5523 May, [facility] [place] [facility] [address] [id number] [place] [address]- 2617 May, [facility] [place] [facility] [address] [id number] [place] [address]- 5309 May, [facility] [place] [facility] [address] [id number] [place] [address]- 1474 May, [facility] [place] [facility] [address] [id number] [place] [address]- 7393 May, [facility] [place] [facility] [address] [id number] [place] [address]- 6159 May, [facility] [place] [facility] [address] [id number] [place] [address]- 4878 May, [facility] [place] [facility] [address] [id number] [place] [address]- 8860 May, [facility] [place] [facility] [address] [id number] [place] [address]- 3300 May, [facility] [place] [facility] [address] [id number] [place] [address]- 5942 May, [facility] [place] [facility] [address] [id number] [place] [address]- 8132 May, [facility] [place] [facility] [address] [id number] [place] [address]- 9812 May, [facility] [place] [facility] [address] [id number] [place] [address]- 7493 Apr, [facility] [place] [facility] [address] [id number] [place] [address]- 6432 Apr, [facility] [place] [facility] [address] [id number] [place] [address]- 9398 Apr, [facility] [place] [facility] [address] [id number] [place] [address]- 9745 Apr, [facility] [place] [facility] [address] [id number] [place] [address]- 8461 Apr, [facility] [place] [facility] [address] [id number] [place] [address]- 8073 Apr, [facility] [place] [facility] [address] [id number] [place] [address]- 7396 Apr, [facility] [place] [facility] [address] [id number] [place] [address]- 7582 Apr, [facility] [place] [facility] [address] [id number] [place] [address]- 4573 Apr, [facility] [place] [facility] [address] [id number] [place] [address]- 0499 Apr, [facility] [place] [facility] [address] [id number] [place] [address]- 5264 March, [facility] [place] [facility] [address] [id number] [place] [address]- 5909 March, [facility] [place] [facility] [address] [id number] [place] [address]- 6778 March, [facility] [place] [facility] [address] [id number] [place] [address]- 5412 March, [facility] [place] [facility] [address] [id number] [place] [address]- 7739 March, [facility] [place] [facility] [address] [id number] [place] [address]- 0055 March, [facility] [place] [facility] [address] [id number] [place] [address]- 8626 Feb, [facility] [place] [facility] [address] [id number] [place] [address]- 1447 Feb, [facility] [place] [facility] [address] [id number] [place] [address]- 0491 Feb, [facility] [place] [facility] [address] [id number] [place] [address]- 5027 Feb, [facility] [place] [facility] [address] [id number] [place] [address]- 8779 Feb, [facility] [place] [facility] [address] [id number] [place] [address]- 7587 Feb, [facility] [place] [facility] [address] [id number] [place] [address]- 1831 Feb, [facility] [place] [facility] [address] [id number] [place] [address]- 2853 Feb, [facility] [place] [facility] [address] [id number] [place] [address]- 9165 Feb, [facility] [place] [facility] [address] [id number] [place] [address]- 2179 Feb, [facility] [place] [facility] [address] [id number] [place] [address]- 1945 Jan, [facility] [place] [facility] [address] [id number] [place] [address] Jan, [facility] [place] [facility] [address] [id number] [place] [address] Jan, [facility] [place] [facility] [address] [id number] [place] [address] Jan, [facility] [place] [facility] [address] [id number] [place] [address] Jan, [facility] [place] [facility] [address] [id number] [place] [address] Jan, [facility] [place] [facility] [address] [id number] [place] [address] Jan, [facility] [place] [facility] [address] [id number] [place] [address] Jan, [facility] [place] [facility] [address] [id number] [place] [address] Dec, [facility] [place] [facility] [address] [id number] [place] [address] Dec, [facility] [place] [facility] [address] [id number] [place] [address] Dec, [facility] [place] [facility] [address] [id number] [place] [address] Dec, [facility] [place] [facility] [address] [id number] [place] [address] Dec, [facility] [place] [facility] [address] [id number] [place] [address] Dec, [facility] [place] [facility] [address] [id number] [place] [address] Dec, [facility] [place] [facility] [address] [id number] [place] [address] Dec, [facility] [place] [facility] [address] [id number] [place] [address] Nov, [facility] [place] [facility] [address] [id number] [place] [address] Nov, [facility] [place] [facility] [address] [id number] [place] [address] Nov, [facility] [place] [facility] [address] [id number] [place] [address] Nov, [facility] [place] [facility] [address] [id number] [place] [address] Nov, [facility] [place] [facility] [address] [id number] [place] [address] Nov, [facility] [place] [facility] [address] [id number] [place] [address] Nov, [facility] [place] [facility] [address] [facility] [id number] [place] [address] Nov, [facility] [place] [facility] [address] [id number] [place] [address] Nov, [facility] [place] [facility] [address] [id number] [place] [address] Nov, [facility] [place] [facility] [address] [id number] [place] [address] Nov, [facility] [place] [facility] [address] [facility] [id number] [place] [address] Oct, [facility] [place] [facility] [address] [id number], [place] [address] Oct, [facility] [place] [facility] [address] [id number] [place] [address] Oct, [facility] [place] [facility] [address] [facility] [id number], [place] [address] Oct, [facility] [place] [facility] [address] [id number], [place] [address] Sep, [facility] [place] [facility] [address] [id number], [place] [address] Sep, [facility] [place] [facility] [address] [id number] [place] [address] Sep, [facility] [place] [facility] [address] [id number], [place] [address] Sep, [facility] [place] [facility] [address] [facility] [id number], [place] [address] Aug, [facility] [place] [facility] [address] [id number] [place] [address] 28 Aug, 2013 [facility] [place] [facility] [address] [id number] [place] [address] Aug, 2012 [facility] [place] [facility] [address] [id number] [place] [address] Aug, [facility] [place] [facility] [address] [id number] [place] [address] Aug, [facility] [place] [facility] [address] [id number] [place] [address] Aug, [facility] [place] [facility] [address] [id number] [place] [address] Aug, [facility] [place] [facility] [address] [id number] [place] [address] Aug, [facility] [place] [facility] [address] [id number] [place] [address] 28 Sep, 2012 [facility] [place] [facility] [address] [id number] [place] [address] 27 Sep, 2012 [facility] [place] [facility] [address] [id number] [place] [address]48 26 Sep, 2012 [facility] [place] [facility] [address] [id number] [place] [address] 24 Sep, 2012 [facility] [place] [facility] [address] [id number] [place] [address] 2546 24 Sep, 2012 [facility] [place] [facility] [address] [id number] [place] [address] 2548 23 Sep, 2012 [facility] [place] [facility] [address] [id number] [place] [address] 2548 19 Sep, 2012 [facility] [place] [facility] [address] [id number] [place] [address] 18 Sep, 2012 [facility] [place] [facility] [address] [id number] [place] [address] 2549 17 Sep, 2012 [facility] [place] [facility] [address] [id number] [place] [address] 16 Jul, 2012 [facility] [place] [facility] [address] [id number] [place] [address] 13 Jul, 2013 [facility] [place] [facility] [address] [id number] [place] [address] 13 Jul, 2013 [facility] [place] [facility] [address] [id number] [place] [address]67 12 Jul, 2013 [facility] [place] [facility] [address] [id number] [place] [address] 11 Jul, 2013 [facility] [place] [facility] [address] [id number] [place] [address] 04 Jul, 2013 [facility] [place] [facility] [address] [id number] [place] [address] 98[address] Jun, [facility] [place] [facility] [address] [id number] [place] [address] Jun, [facility] [place] [facility] [address] [id number] [place] [address] 12[address] Jun, [facility] [place] [facility] [address] [id number] [place] [address] 1868 May, [facility] [place] [facility] [address] [id number] [place] [address] 1561 May, [facility] [place] [facility] [address] [id number] [place] [address] 9114 May, [facility] [place] [facility] [address] [id number] [place] [address]- 2029 May, [facility] [place] [facility] [address] [id number] [place] [address] 8754 Apr, [facility] [place] [facility] [address] [id number] [place] [address]- 75[address] Apr, [facility] [place] [facility] [address] [id number] [place] [address]- 2546 Apr, [facility] [address] [id number] [place] [address]- 7[address] Apr, [facility] [place] [facility] [address] [id number] [place] [address]- 2436 March, [facility] [place] [facility] [address] [id number] [place] [address]- 0896 March, [facility] [place] [facility] [address] [id number] [place] [address]- 0849 March, [facility] [place] [facility] [address] [id number] [place] [address]- 0878 Feb, [facility] [place] [facility] [address] [id number] [place] [address]- 6641 Feb, [facility] [address] [id number] [place] [address]- 2046 Jan, [facility] [place] [facility] [address] [id number] [place] [address]- 7827 Jan, [facility] [place] [facility] [address] [id number] [place] [address]- 8[address] Jan, [facility] [place] [facility] [address] [id number] [place] [address]- 8929 Jan, [facility] [place] [facility] [address] [id number] [place] [address]- 4567 Jan, [facility] [place] [facility] [address] [id number] [place] [address]- 4039 Dec, [facility] [place] [facility] [address] [id number] [place] [address]- 0415 Dec, [facility] [place] [facility] [address] [id number] [place] [address]- 5820 Dec, [facility] [place] [facility] [address] [id number] [place] [address]- 8063 Dec, [facility] [place] [facility] [address] [id number] [place] [address]- 9691 18 Dec, 2012 [facility] [address] [id number] [place] [address]- 8246 06 Dec, 2012 [facility] [place] [facility] [address] [id number] [place] [address]- 5699 04 Dec, 2012 [facility] [place] [facility] [address] [id number] [place] [address]- 3848 Dec, [facility] [place] [facility] [address] [id number] [place] [address]- 7279 Nov, [facility] [address] [id number] [place] [address]- 7943 Nov, [facility] [address] [id number] [place] [address]- 4362 Nov, [facility] [address] [id number] [place] [address]- 5081 Nov, [facility] [address] [id number] [place] [address]- 3981 Nov, [facility] [address] [id number] [place] [address]- 4258 Nov, [facility] [address] [id number] [place] [address]- 6846 Nov, [facility] [address] [id number] [place] [address]- 8517 Oct, [facility] [place] [facility] [address] [id number] [place] [address]- 5614 Oct, [facility] [place] [facility] [address] [id number] [place] [address]- 8335 Oct, [facility] [place] [facility] [address] [id number] [place] [address]- 9887 Oct, [facility] [place] [facility] [address] [id number] [place] [address]- 9132 05 Oct, 2012 [facility] [place] [facility] [address] [id number] [place] [address]- 9614 Oct, [facility] [place] [facility] [address] [id number] [place] [address]- 5746 Oct, [facility] [place] [facility] [address] [id number] [place] [address]- 5926 Oct, [facility] [place] [facility] [address] [id number] [place] [address]- 8839 Sep, [facility] [place] [facility] [address] [id number] [place] [address]- 6556 Sep, [facility] [place] [facility] [address] [id number] [place] [address]- 8975 Sep, [facility] [place] [facility] [address] [id number] [place] [address]- 4778 Sep, [facility] [place] [facility] [address] [id number] [place] [address]- 4929 Sep, [facility] [place] [facility] [address] [id number] [place] [address]- 4463 Sep, [facility] [place] [facility] [address] [id number] [place] [address]- 6530 Sep, [facility] [place] [facility] [address] [id number], [place] [address]- 1117 Sep, [facility] [place] [facility] [address] [id number], [place] [address]- 2522 Sep, [facility] [place] [facility] [address] [id number] [place] [address]- 4791 Sep, [facility] [place] [facility] [address] [id number] [place] [address]- 2323 Sep, [facility] [place] [facility] [address] [id number] [place] [address]- 4663 Sep, [facility] [place] [facility] [address] [id number] [place] [address]- 8567 Sep, [facility] [place] [facility] [address] [id number] [place] [address]- 8114 Sep, [facility] [place] [facility] [address] [id number] [place] [address]- 3982 Sep, [facility] [place] [facility] [address] [id number] [place] [address]- 2490 Sep, [facility] [place] [facility] [address] [id number] [place] [address]- 9712 Sep, [facility] [place] [facility] [address] [id number] [place] [address], [place] [address]- 1743 Sep, [facility] [place] [facility] [address] [facility] [id number] [place] [address]- 8303 Sep, [facility] [place] [facility] [address] [facility] [id number] [place] [address]- 1248 Sep, [facility] [place] [facility] [address] [id number] [place] [address]- 9024 Aug, [facility] [place] [facility] [address] [facility] [id number] [place] [address]- 7124 Aug, [facility] [place] [facility] [address] [facility] [id number] [place] [address]- 0744 29 Aug, 2012 [facility] [place] [facility] [address] [facility] [id number] [place] [address]- 4819 Aug, [facility] [place] [facility] [address] [id number] [place] [address]- 9504 Aug, [facility] [place] [facility] [address] [facility] [id number] [place] [address]- 6471 Aug, [facility] [place] [facility] [address] [facility] [id number] [place] [address]- 0399 18 Aug, 2012 [facility] [place] [facility] [address] [facility] [id number] [place] [address]- 7142 17 Aug, 2012 [facility] [place] [facility] [address] [id number] [place] [address] Aug, [facility] [place] [facility] [address] [id number] [place] [address] 16 Aug, 2012 [facility] [place] [facility] [address] [id number] [place] [address]- 4686 15 Aug, 2012 [facility] [place] [facility] [address] [id number] [place] [address]- 1629 Aug, [facility] [place] [facility] [address] [id number] [place] [address] Aug, [facility] [place] [facility] [address] [id number] [place] [address]- 4827 Aug, [facility] [place] [facility] [address] [id number] [place] [address]- 4394 Aug, [facility] [place] [facility] [address] [id number] [place] [address]- 1808 14 Jul, 2012 [facility] [place] [facility] [address] [id number] [place] [address]- 5177 Jul, [facility] [place] [facility] [address] [id number], [place] [address]- 2567 Jun, [facility] [place] [facility] [address] [id number] [place] [address]- 9764 Jun, [facility] [place] [facility] [address] [id number], [place] [address]- 0725 May, [facility] [place] [facility] [address] [id number] [place] [address]- 1700 May, [facility] [place] [facility] [address] [id number] [place] [address] May, [facility] [place] [facility] [address] [id number], [place] [address]- 1129 May, [facility] [place] [facility] [address] [id number], [place] [address]- 1551 10 May, 2012 [facility] [address] [id number] [place] [address]- 0686 May, [facility] [address] [id number] [place] [address]- 3513 Apr, [facility] [address] [id number] [place] [address]- 8180 Apr, [facility] [address] [id number] [place] [address]- 2758 March, [facility] [address] [id number] [place] [address]- 8318 March, [facility] [address] [id number] [place] [address]- 7630 March, [facility] [address] [id number] [place] [address]- 6410 March, [facility] [address] [id number] [place] [address]- 5101 March, [facility] [address] [id number] [place] [address]- 5640 March, [facility] [address] [id number] [place] [address]- 1054 30 Feb, 2012 [facility] [address] [id number] [place] [address]- 8729 Feb, [facility] [place] [facility] [address] [id number] [place] [address]- 7453 Feb, [facility] [place] [facility] [address] [id number] [place] [address]- 4975 Feb, [facility] [place] [facility] [address] [id number] [place] [address]- 4859 23 Feb, 2012 [facility] [address] [id number] [place] [address]- 0407 19 Feb, 2012 [facility] [place] [facility] [address] [id number] [place] [address]- 4946 10 Feb, 2012 [facility] [place] [facility] [address] [id number] [place] [address]- 6306 09 Feb, 2012 [facility] [place] [facility] [address] [id number] [place] [address]- 2546 04 Feb, 2012 [facility] [place] [facility] [address] [id number] [place] [address]- 1236 30 Jan, 2012 [facility] [place] [facility] [address] [id number] [place] [address]- 9129 27 Jan, 2012 [facility] [place] [facility] [address] [id number] [place] [address]- 8006 26 Jan, 2012 [facility] [place] [facility] [address] [id number] [place] [address]- 3306 Jan, [facility] [place] [facility] [address] [id number] [place] [address]- 6424 Jan, [facility] [place] [facility] [address] [id number] [place] [address]- 7854 20 Jan, 2012 [facility] [place] [facility] [address] [id number] [place] [address]- 7882 14 Jan, 2012 [facility] [place] [facility] [address] [id number] [place] [address]- 3856 Jan, [facility] [place] [facility] [address] [id number] [place] [address]- 0636 Jan, [facility] [place] [facility] [address] [id number] [place] [address]- 0386 08 Jan, 2012 [facility] [place] [facility] [address] [id number] [place] [address]- 9506 07 Jan, 2012 [facility] [place] [facility] [address] [id number] [place] [address]- 2546 06 Jan, 2012 [facility] [place] [facility] [address] [id number] [place] [address]- 5647 Jan, [facility] [address] [facility] [id number] [place] [address]- 7962 Jan, [facility] [place] [facility] [address] [facility] [id number] [place] [address]- 4216 Dec, [facility] [place] [facility] [address] [id number] [place] [address]- 0996 Dec, [facility] [place] [facility] [address] [facility] [id number] [place] [address]- 2015 Dec, [facility] [place] [facility] [address] [facility] [id number] [place] [address]- 2902 23 Dec, 2011 [facility] [place] [facility] [address] [facility] [id number] [place] [address]- 1786 16 Dec, 2011 [facility] [id number] [place] [address]- 1231 08 Dec, 2011 [facility] [place] [facility] [address] [facility] [id number] [place] [address]- 7791 08 Dec, 2011 [facility] [address] [id number] [place] [address]- 5648 07 Dec, 2011 [facility] [place] [facility] [address] [facility] [id number] [place] [address]- 4272 07 Dec, 2011 [facility] [place] [facility] [id number] [place] [address]- 1575 Nov, [facility] [place] [facility] [address] [facility] [id number] [place] [address]- 8442 Nov, [facility] [place] [facility] [address] [facility] [id number] [place] [address]- 4683 Nov, [facility] [place] [facility] [address] [facility] [id number] [place] [address]- 7034 05 Nov, 2011 [facility] [place] [facility] [id number] [place] [address]- 0102 Oct, [facility] [place] [facility] [address] [id number] [place] [address]- 5127 Oct, [facility] [place] [facility] [address] [id number] [place] [address]- 2506 Oct, [facility] [place] [facility] [address] [id number] [place] [address]- 0797 Oct, [facility] [place] [facility] [address] [id number] [place] [address]- 7256 Oct, [facility] [place] [facility] [address] [id number] [place] [address]- 0913 Oct, [facility] [place] [facility] [address] [id number] [place] [address]- 8485 Oct, [facility] [place] [facility] [address] [id number] [place] [address]- 3532 Sep, [facility] [place] [facility] [address] [id number] [place] [address]- 5621 Sep, [facility] [place] [facility] [address] [id number] [place] [address]- 6894 Sep, [facility] [place] [facility] [address] [id number] [place] [address]- 1646 Sep, [facility] [place] [facility] [address] [id number] [place] [address]- 7670 Sep, [facility] [place] [facility] [address] [id number] [place] [address]- 9318 Sep, [facility] [place] [facility] [address] [id number] [place] [address]- 6600 Sep, [facility] [place] [facility] [address] [id number] [place] [address]- 8832 Sep, [facility] [place] [facility] [address] [id number] [place] [address]- 4112 Sep, [facility] [place] [facility] [address] [id number] [place] [address]- 5181 30 Aug, 2011 [facility] [address] [id number] [place] [address]- 3351 28 Aug, 2011 [facility] [place] [facility] [address] [id number] [place] [address]- 9866 27 Aug, 2011 [facility] [address] [id number] [place] [address]- 2656 May, [facility] [place] [facility] [address] [id number] [place] [address]- 1142 Nov, [facility] [address] [id number] [place] [address]- 3006 31 Oct, 2010 [facility] [place] [facility] [address] [id number] [place] [address]- 3126 30 Oct, 2010 [facility] [place] [facility] [address] [id number] [place] [address]- 9700 30 Oct, 2010 [facility] [place] [facility] [address] [id number], [place] [address]- 2013 Oct, [facility] [place] [facility] [address] [id number] [place] [address]- 6806 Oct, [facility] [place] [facility] [address] [id number] [place] [address]- 6513 Sep, [facility] [place] [facility] [address] [id number], [place] [address]- 9863 Sep, [facility] [place] [facility] [address] [id number], [place] [address]- 4314 14 Jul, 2010 [facility] [place] [facility] [address] [id number] [place] Oct, [facility] [place] [facility] [address] [id number], [place] [address]- 0392 Oct, [facility] [place] [facility] [address] [facility] [id number] [place] [address]- 8896 Oct, [facility] [place] [facility] [address] [id number], [place] [address]- 5086 Oct, [facility] [address], [place] [address]- 5120 Sep, [facility] [address], [place] [address]- 3254 Sep, [facility] [address], [place] [address]- 9286 Sep, [facility] [address], [place] [address]- 9652 Sep, [facility] [address], [place] [address]- 8502 Sep, [facility] [address], [place] [address]- 5531 Jul, [facility] [address], [place] [address]- 0110 Apr, [facility] [address] [id number], [place] [address]- 1904 12 Dec, 2008 IMMUNIZATIONS No Known Immunizations SOCIAL HISTORY Never Assessed REASON FOR VISIT orders PLAN OF CARE VITAL SIGNS MEDICATIONS Unknown [...]
--- OUTSIDE RECORDS SUMMARY | 2018-11-26 15:41 | XMS REPORT ---
Author Author KING FISHMAN Organization [facility] Address [address] [place] [address] Care Team Providers Care Foil Spooler Name Role Phone KING FISHMAN Unavailable PROBLEMS Type Condition ICD9-CM Code WAP66-OS Code Onset Dates Condition Status SNOMED Code Problem Lumbago with sciatica, left side M54.42 Active 608163062 Problem Other chronic pain G89.29 Active 47063256 Problem Lumbago with sciatica, right side M54.41 Active [id number] Problem Iron deficiency anemia due to chronic blood loss D50.0 Active 821239488 Problem Seizures R56.9 Active 80565742 Problem Chronic obstructive pulmonary disease, unspecified COPD type J44.9 Active 76684799 Problem Pain in right ankle and joints of right foot M25.571 Active 89633584023577 Problem DM 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 Active 39480713 Problem Cigarette nicotine dependence without complication F17.210 Active 20755316 Problem Mixed hyperlipidemia E78.2 Active 258760024 Problem Essential hypertension I10 Active 25008820 Problem Prediabetes R73.03 Active 383064402 Problem Acquired hypothyroidism E03.9 Active 185451712 Problem Reactive depression F32.9 Active 25473193 Problem Gastroesophageal reflux disease, esophagitis presence not specified K21.9 Active 947018199 ALLERGIES No Information ENCOUNTERS Encounter Location Date Diagnosis [facility] [address] [facility] [id number] [address] Oct, [facility] [address] [id number] [address] Sep, [facility] [address] [id number] [address] Aug, Chronic obstructive pulmonary disease, unspecified COPD type J44.9 ; Complete amputation of right foot, 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 ; Cigarette nicotine dependence without complication F17.210 and BMI 40.0-44.9, adult Z68.41 [place] [address] [address]- [address] Jul, [place] [address] [address]82- 5604 Jul, [place] [address] 8[address]32- 4734 Jul, Onychomycosis B35.1 ; Onychocryptosis L60.0 and DM 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 [place] [address] 21909- 5574 Jun, Pain in thoracic spine M54.6 [place] [address] 20807- 3945 Jun, Iron deficiency anemia due to chronic blood loss D50.0 and Hematochezia K92.1 [place] [address] 31918- 8306 Jun, Gastroenteritis K52.9 and Abnormal RBC indices R71.8 [place] [address] 88494- 7252 Jun, [place] [address] 19006- 8018 Jun, Chest congestion R09.89 and Seizures R56.9 [place] [address] 38017- 0344 May, Pain in thoracic spine M54.6 [place] [address] 41002- 6946 May, [place] [address] 67238- 3508 May, [place] [address] 79468- 3856 May, [facility] [id number] [place] [address] 49008- 5630 May, Acute non-recurrent frontal sinusitis J01.10 and Dermatitis L30.9 [facility] [id number] [place] [address] 54055- 7158 May, [facility] [id number] [place] [address] 09173- 1274 May, Pain in thoracic spine M54.6 [facility] [id number] [place] [address] 62445- 0250 May, [facility] [id number] [place] [address] 98908- 5779 May, Acute nasopharyngitis J00 [facility] [id number] [place] [address] 06704- 0801 May, [facility] [id number] [place] [address] 68928- 1256 May, [facility] [id number] [place] [address] 30183- 6463 Apr, [facility] [id number] [place] [address] 10564- 9387 Apr, [facility] [id number] [place] [address] 45212- 1398 Apr, [facility] [id number] [place] [address] 51316- 6510 Apr, [facility] [id number] [place] [address] 10247- 8798 Apr, Pain in right ankle and joints of right foot M25.571 [facility] [id number] [place] [address] 37721- 5339 Apr, [facility] [id number] [place] [address] 89663- 0523 Apr, Bronchitis J40 ; Pain in right ankle and joints of right foot M25.571 ; Other chronic pain G89.29 ; Prediabetes R73.03 ; Chronic obstructive pulmonary disease, unspecified COPD type J44.9 and Cigarette nicotine dependence without complication F17.210 [facility] [id number] [place] [address] 18524 -0705 13 Apr, 2018 Seasonal allergic rhinitis, unspecified trigger J30.2 [place] [address] 60323- 1161 08 Apr, 2018 Onychomycosis B35.1 ; Onychocryptosis L60.0 and DM 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 5[address]25- 5353 Apr, Reactive depression F32.9 ; Thoracic myofascial strain, initial encounter S29.019A and Leg cramps R25.2 [place] [address] 05831- 7816 March, [place] [address] 88980- 1161 March, Type 2 diabetes mellitus with hyperglycemia E11.65 [place] [address] 72641- 0483 March, Reactive depression F32.9 [place] [address] 64081- 0880 March, Pain in thoracic spine M54.6 and Other chronic pain G89.29 [place] [address] [address] [id number] [place] [address] 66007- 7732 Feb, [place] [address] 94590- 5262 Jan, Reactive depression F32.9 ; Essential hypertension I10 ; Gastroesophageal reflux disease, esophagitis presence not specified K21.9 ; Lumbago with sciatica, left side M54.42 and Lumbago with sciatica, right side M54.41 [place] [address] 26152- 6147 Jan, Reactive depression F32.9 and Pharyngoesophageal dysphagia R13.14 [place] [address] 07200- 7811 Jan, [place] [address] 15029- 8361 Jan, Encounter for immunization Z23 [place] [address] 76757- 9787 Jan, Onychomycosis B35.1 and DM 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 02326- 7232 Jan, [address] 39600- 6790 Jan, Prediabetes R73.03 [place] [address] 45387- 9126 Dec, [address] 56290- 0667 Dec, Essential hypertension I10 ; Mixed hyperlipidemia E78.2 ; Acquired hypothyroidism E03.9 ; Reactive depression F32.9 and Prediabetes R73.[address] 58304- 4242 Dec, [place] [address] 10194- 8969 Dec, [place] [address] 31916- 1970 Dec, DM 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 [facility] [address] 0300[address] -[address]97 08 Dec, 2017 Bruise T14.8XXA ; Type 2 diabetes mellitus with hyperglycemia E11.65 and 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 [facility] [address] [address]106 Oct, [facility] [id number] [place] [address] 78403- 9522 March, Onychomycosis B35.1 and DM 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 [facility] [id number] [place] [address] 21251- 1169 Jun, [facility] [id number] [place] [address] 53147- 3430 Jun, [facility] [id number] [place] [address] 34628- 4062 Jun, COPD with acute exacerbation 491.21 [facility] [id number] [place] [address] 35869- 3507 Apr, [facility] [id number] [place] [address] 93882- 7512 Feb, [facility] [id number] [place] [address] 80764- 9973 Feb, [facility] [id number] [place] [address] 05251- 6608 Jan, [facility] [address], [place] [address]- 6396 Jan, [facility] [address], [place] [address]- 6802 Jan, [facility] [address], [place] [address]- 8247 Jan, [facility] [id number] [place] [address] 02401- 7794 Jan, [facility] [address], [place] [address]- 3078 Jan, [facility] [address] [place] [address] 69831- 1733 23 Jan, 2015 [facility] [place] [facility] [address] [id number] [place] [address]- 3960 23 Jan, 2014 [facility] [place] [facility] [address] [id number] [place] [address]- 0890 23 Jan, 2014 [facility] [place] [facility] [address] [id number] [place] [address]- 2032 19 Jan, 2014 [facility] [place] [facility] [address] [id number] [place] [address]- 0660 19 Jan, 2014 [facility] [place] [facility] [address] [id number] [place] [address]- 5005 18 Jan, 2015 [facility] [place] [facility] [address] [id number] [place] [address]- 8539 18 Jan, 2014 [facility] [place] [facility] [address] [id number] [place] [address]- 8069 16 Jan, 2014 [facility] [place] [facility] [address] [id number] [place] [address]- 2244 16 Jan, 2014 [facility] [place] [facility] [address] [id number] [place] [address]- 6212 16 Jan, 2015 [facility] [place] [facility] [address] [id number] [place] [address]- 7555 16 Jan, 2014 [facility] [place] [facility] [address] [id number] [place] [address]- 7640 15 Jan, 2015 [facility] [place] [facility] [address] [id number] [address]- 8819 13 Jan, 2014 [facility] [place] [facility] [address] [id number] [place] [address]- 2541 13 Jan, 2015 [facility] [place] [facility] [address] [id number] [place] [address]- 9784 13 Jan, 2015 [facility] [place] [facility] [address] [id number] [place] [address]- 5551 13 Jan, 2014 [facility] [place] [facility] [address] [id number] [place] [address]- 2371 Jan, [facility] [place] [facility] [address] [id number] [place] [address]- 1970 Jan, 2014 [facility] [place] [facility] [address] [facility] [id number] [place] [address]- 8937 Jan, [facility] [place] [facility] [address] [facility] [id number] [place] [address]- 5221 Dec, 2014 [facility] [place] [facility] [address] [id number] [place] [address]- 2756 Dec, 2014 [facility] [place] [facility] [address] [facility] [id number] [place] [address]- 9611 Dec, 2014 [facility] [place] [facility] [address] [facility] [id number] [place] [address]- 3566 Dec, 2014 [facility] [place] [facility] [id number] [place] [address]- 7728 Dec, 2014 [facility] [place] [facility] [address] [facility] [id number] [place] [address]- 2165 Dec, 2014 [facility] [place] [facility] [address] [facility] [id number] [place] [address]- 6712 Dec, 2014 [facility] [place] [facility] [address] [facility] [id number] [place] [address]- 7802 Dec, 2014 [facility] [place] [facility] [address] [facility] [id number] [place] [address]- 5132 Dec, 2014 [facility] [place] [facility] [address] [facility] [id number] [place] [address]- 2672 Dec, 2014 [facility] [place] [facility] [address] [facility] [id number] [place] [address]- 3227 16 Dec, 2014 [facility] [place] [facility] [address] [facility] [id number] [place] [address]- 4529 16 Dec, 2014 [facility] [place] [facility] [address] [facility] [id number], [place] [address]- 2546 Nov, [facility] [place] [facility] [address] [id number] [place] [address]- 7571 Nov, [facility] [place] [facility] [address] [id number] [place] [address]- 4280 Nov, [facility] [place] [facility] [address] [id number] [place] [address]- 5460 Nov, [facility] [place] [facility] [address] [id number] [place] [address]- 2372 Nov, [facility] [place] [facility] [address] [id number] [place] [address]- 5331 Nov, [facility] [place] [facility] [address] [id number] [place] [address]- 2958 Nov, [facility] [place] [facility] [address] [id number] [place] [address]- 2320 Nov, [facility] [place] [facility] [address] [id number] [place] [address]- 6768 Nov, [facility] [place] [facility] [address] [id number] [place] [address]- 5587 Nov, [facility] [place] [facility] [address] [id number] [place] [address]- 9145 Nov, [facility] [place] [facility] [address] [id number] [place] [address]- 3334 Nov, [facility] [place] [facility] [address] [id number] [place] [address]- 3836 Oct, [facility] [place] [facility] [address] [id number] [place] [address]- 3600 Oct, [facility] [place] [facility] [address] [id number] [place] [address]- 7351 Oct, [facility] [place] [facility] [address] [id number] [place] [address]- 9688 Oct, [facility] [place] [facility] [address] [id number] [place] [address]- 6241 29 Oct, 2014 [facility] [address] [id number] [place] [address]- 1019 29 Oct, 2014 [facility] [place] [facility] [address] [id number] [place] [address]- 0716 Oct, [facility] [place] [facility] [address] [id number] [place] [address]- 2921 Oct, [facility] [place] [facility] [address] [id number] [place] [address]- 3099 17 Oct, 2014 [facility] [place] [facility] [address] [id number] [place] [address]- 9593 17 Oct, 2014 [facility] [place] [facility] [address] [id number] [place] [address]- 7083 16 Oct, 2014 [facility] [place] [facility] [address] [id number] [place] [address]- 9205 16 Oct, 2014 [facility] [place] [facility] [address] [id number] [place] [address]- 1404 15 Oct, 2014 [facility] [place] [facility] [address] [id number] [place] [address]- 1626 15 Oct, 2014 [facility] [place] [facility] [address] [id number] [place] [address]- 0255 08 Oct, 2014 [facility] [place] [facility] [address] [id number] [place] [address]- 6675 24 Sep, 2014 [facility] [place] [facility] [address] [id number] [place] [address]- 4690 Sep, [facility] [place] [facility] [address] [id number] [place] [address]- 1790 Sep, [facility] [place] [facility] [address] [id number] [place] 5622 Sep, [facility] [place] [facility] [address] [id number] [place]14 Aug, [facility] [place] [facility] [address] [id number] [place] [address]- 1423 Aug, [facility] [place] [facility] [address] [id number] [place] [address]- 7093 Aug, [facility] [place] [facility] [address] [id number] [place] [address]- 7016 Aug, [facility] [place] [facility] [address] [id number] [place] [address]- 9774 Aug, [facility] [place] [facility] [address] [id number] [place] [address]- 3558 Aug, [facility] [place] [facility] [address] [id number] [place] [address]- 2679 29 Jul, 2014 [facility] [place] [facility] [address] [id number] [place] [address]- 6467 29 Jul, 2014 [facility] [place] [facility] [address] [id number] [place] [address]- 5964 15 Jul, 2014 [facility] [place] [facility] [address] [id number] [place] [address]- 2134 15 Jul, 2014 [facility] [place] [facility] [address] [id number], [place] [address]- 0456 08 Jul, 2014 [facility] [place] [facility] [address] [id number], [place] [address]- 8278 08 Jul, 2014 [facility] [place] [facility] [address] [id number], [place] [address]- 8654 Jun, [facility] [place] [facility] [address] [id number] [place] [address]- 1422 Jun, [facility] [place] [facility] [address] [id number] [place] [address]- 1618 Jun, [facility] [place] [facility] [address] [id number], [place] [address]- 6786 Jun, [facility] [place] [facility] [address] [id number], [place] [address]- 4240 Jun, [facility] [place] [facility] [address] [id number] [place] [address]- 4410 Jun, [facility] [place] [facility] [address] [id number] [place] [address]- 7270 Jun, [facility] [place] [facility] [address] [id number] [place] [address]- 4338 May, [facility] [place] [facility] [address] [id number] [place] [address]- 8815 May, [facility] [place] [facility] [address] [id number] [place] [address]- 3736 May, [facility] [place] [facility] [address] [id number] [place] [address]- 7656 May, [facility] [place] [facility] [address] [id number] [place] [address]- 8734 May, [facility] [place] [facility] [address] [id number] [place] [address]- 3982 May, [facility] [place] [facility] [address] [id number] [place] [address]- 4356 May, [facility] [place] [facility] [address] [id number] [place] [address]- 1593 May, [facility] [place] [facility] [address] [id number] [place] [address]- 7428 May, [facility] [place] [facility] [address] [id number] [place] [address]- 4703 May, [facility] [place] [facility] [address] [id number] [place] [address]- 3508 May, [facility] [place] [facility] [address] [id number] [place] [address]- 6981 May, [facility] [place] [facility] [address] [id number] [place] [address]- 2797 Apr, [facility] [place] [facility] [address] [id number] [place] [address]- 3960 Apr, [facility] [place] [facility] [address] [id number] [place] [address]- 0862 Apr, [facility] [place] [facility] [address] [id number] [place] [address]- 8774 Apr, [facility] [place] [facility] [address] [id number] [place] [address]- 3652 Apr, [facility] [place] [facility] [address] [id number] [place] [address]- 3976 Apr, [facility] [place] [facility] [address] [id number] [place] [address]- 8074 Apr, [facility] [place] [facility] [address] [id number] [place] [address]- 6168 Apr, [facility] [place] [facility] [address] [id number] [place] [address]- 5992 Apr, [facility] [place] [facility] [address] [id number] [place] [address]- 7882 Apr, [facility] [place] [facility] [address] [id number] [place] [address]- 0680 March, [facility] [place] [facility] [address] [id number] [place] [address]- 8321 March, [facility] [place] [facility] [address] [id number] [place] [address]- 2765 March, [facility] [place] [facility] [address] [id number] [place] [address]- 8004 March, [facility] [place] [facility] [address] [id number] [place] [address]80 March, [facility] [place] [facility] [address] [id number] [place] [address]- 2472 March, [facility] [place] [facility] [address] [id number] [place] [address]- 6293 Feb, [facility] [place] [facility] [address] [id number] [place] [address]- 0861 Feb, [facility] [place] [facility] [address] [id number] [place] [address]- 4693 Feb, [facility] [place] [facility] [address] [id number] [place] [address]- 5406 Feb, [facility] [place] [facility] [address] [id number] [place] [address]- 2386 Feb, [facility] [place] [facility] [address] [id number] [place] [address]- 7351 Feb, [facility] [place] [facility] [address] [id number] [place] [address]- 3231 Feb, [facility] [place] [facility] [address] [id number] [place] [address]- 0076 Feb, [facility] [place] [facility] [address] [id number] [place] [address]- 7932 Feb, [facility] [place] [facility] [address] [id number] [place] [address]- 7121 Feb, [facility] [place] [facility] [address] [id number] [place] [address]- 7760 Jan, [facility] [place] [facility] [address] [id number] [place] [address] Jan, [facility] [place] [facility] [address] [id number] [place] [address] Jan, [facility] [place] [facility] [address] [id number] [place] [address] Jan, [facility] [place] [facility] [address] [id number] [place] [address] Jan, [facility] [place] [facility] [address] [id number] [place] [address] Jan, [facility] [place] [facility] [address] [id number] [place] [address] Jan, [facility] [place] [facility] [address] [id number] [place] [address] Jan, [facility] [place] [facility] [address] [id number] [place] [address] Dec, [facility] [place] [facility] [address] [id number] [place] [address] Dec, [facility] [place] [facility] [address] [id number] [place] [address] Dec, [facility] [place] [facility] [address] [id number] [place] [address] Dec, [facility] [place] [facility] [address] [id number] [place] [address] Dec, [facility] [place] [facility] [address] [id number] [place] [address] Dec, [facility] [place] [facility] [address] [id number] [place] [address] Dec, [facility] [place] [facility] [address] [id number] [place] [address] Dec, [facility] [place] [facility] [address] [id number] [place] [address] Nov, [facility] [place] [facility] [address] [id number] [place] [address] Nov, [facility] [place] [facility] [address] [id number] [place] [address] Nov, [facility] [place] [facility] [address] [id number] [place] [address] Nov, [facility] [place] [facility] [address] [id number] [place] [address] Nov, [facility] [place] [facility] [address] [id number] [place] [address] Nov, [facility] [place] [facility] [address] [id number] [place] [address] Nov, [facility] [place] [facility] [address] [id number] [place] [address] Nov, [facility] [place] [facility] [address] [facility] [id number] [place] [address] Nov, [facility] [place] [facility] [address] [id number] [place] [address] Nov, [facility] [place] [facility] [address] [id number] [place] [address] Nov, [facility] [place] [facility] [address] [id number] [place] [address] Oct, [facility] [place] [facility] [address] [facility] [id number] [place] [address] Oct, [facility] [place] [facility] [address] [id number] [address] Oct, [facility] [place] [facility] [address] [id number], [place] [address] Oct, [facility] [place] [facility] [address] [facility] [id number][place] [address] Sep, [facility] [place] [facility] [address] [id number], [place] [address] Sep, [facility] [place] [facility] [address] [id number], [place] [address] Sep, [facility] [place] [facility] [address] [id number], [place] [address] Sep, [facility] [place] [facility] [address] [id number], [place] [address] Aug, [facility] [place] [facility] [address] [id number], [place] [address] Aug, [facility] [place] [facility] [address] [id number] [place] [address] Aug, [facility] [place] [facility] [address] [id number] [place] [address] Aug, [facility] [place] [facility] [address] [id number] [place] [address] Aug, [facility] [place] [facility] [address] [id number] [place] [address] Aug, [facility] [place] [facility] [address] [id number] [place] [address] Aug, [facility] [place] [facility] [address] [id number] [place] [address] Aug, [facility] [place] [facility] [address] [id number] [place] [address] 28 Sep, 2012 [facility] [place] [facility] [address] [id number] [place] [address] 27 Sep, 2012 [facility] [place] [facility] [address] [id number] [place] [address] 26 Sep, 2012 [facility] [place] [facility] [address] [id number] [place] [address] 24 Sep, 2012 [facility] [place] [facility] [address] [id number] [place] [address] 24 Sep, 2012 [facility] [place] [facility] [address] [id number] [place] [address] 254 23 Sep, 2012 [facility] [place] [facility] [address] [id number] [place] [address] 2542 19 Sep, 2012 [facility] [place] [facility] [address] [id number] [place] [address] 2545 18 Sep, 2012 [facility] [place] [facility] [address] [id number] [place] [address] 17 Sep, 2012 [facility] [place] [facility] [address] [id number] [place] [address] 2540 16 Sep, 2012 [facility] [place] [facility] [address] [id number] [place] [address] 4150 13 Jul, 2012 [facility] [place] [facility] [address] [id number] [place] [address] 4218 13 Jul, 2013 [facility] [place] [facility] [address] [id number] [place] [address] 6111 12 Jul, 2013 [facility] [place] [facility] [address] [id number] [place] [address] 5190 11 Jul, 2013 [facility] [place] [facility] [address] [id number] [place] [address] 3355 04 Jul, 2013 [facility] [place] [facility] [address] [id number] [place] [address] 96[address] Jun, [facility] [place] [facility] [address] [id number] [place] [address] 4102 Jun, [facility] [place] [facility] [address] [id number] [place] [address] 7244 Jun, [facility] [place] [facility] [address] [id number] [place] [address] 1668 May, [facility] [place] [facility] [address] [id number] [place] [address] 2620 May, [facility] [place] [facility] [address] [id number] [place] [address] 1969 May, [facility] [place] [facility] [address] [id number] [place] [address]- 9545 May, [facility] [place] [facility] [address] [id number] [place] [address]- 2791 Apr, [facility] [place] [facility] [address] [id number] [place] [address]- 5255 Apr, [facility] [place] [facility] [address] [id number] [place] [address]- 3232 Apr, [facility] [place] [facility] [address] [id number] [place] [address]- 3723 Apr, [facility] [address] [id number] [place] [address]- 1436 March, [facility] [address] [id number] [place] [address]- 5871 March, [facility] [address] [id number] [place] [address]- 4587 March, [facility] [address] [id number] [place] [address]- 8650 Feb, [facility] [address] [id number] [place] [address]- 2671 Feb, [facility] [address] [id number] [place] [address]- 8412 Jan, [facility] [address] [id number] [place] [address]- 4859 Jan, [facility] [address] [id number] [place] [address]- 3361 Jan, [facility] [address] [id number] [place] [address]- 9806 Jan, [facility] [address] [id number] [place] [address]- 9419 Jan, [facility] [address] [id number] [place] [address]- 0692 Dec, [facility] [place] [facility] [address] [id number] [place] [address]- 4908 Dec, [facility] [place] [facility] [address] [id number] [place] [address]- 8852 Dec, [facility] [place] [facility] [address] [id number] [place] [address] Dec, [facility] [place] [facility] [address] [id number] [place] [address]- 0078 Dec, [facility] [place] [facility] [address] [id number] [place] [address]- 3885 06 Dec, 2012 [facility] [address] [id number] [place] [address]- 5652 Dec, [facility] [place] [facility] [address] [id number] [place] [address]- 8896 Dec, [facility] [address] [id number] [place] [address]- 5621 Nov, [facility] [address] [id number] [place] [address]- 2918 Nov, [facility] [address] [id number] [place] [address]- 3831 Nov, [facility] [address] [id number] [place] [address]- 1752 Nov, [facility] [address] [id number] [place] [address]- 7335 Nov, [facility] [address] [id number] [place] [address]- 6243 Nov, [facility] [address] [id number] [place] [address]- 5381 Nov, [facility] [address] [id number] [place] [address]- 2526 Oct, [facility] [address] [id number] [place] [address]- 3822 Oct, [facility] [address] [id number] [place] [address]- 5777 Oct, [facility] [place] [facility] [address] [id number] [place] [address]- 7705 Oct, [facility] [address] [id number] [place] [address]- 1797 05 Oct, 2012 [facility] [address] [id number] [place] [address]- 6582 Oct, [facility] [place] [facility] [address] [id number] [place] [address]- 6943 Oct, [facility] [place] [facility] [address] [id number] [place] [address]- 4196 Oct, [facility] [place] [facility] [address] [id number] [place] [address]- 4576 Sep, [facility] [place] [facility] [address] [id number] [place] [address]- 8462 Sep, [facility] [place] [facility] [address] [id number] [place] [address]- 2020 Sep, [facility] [place] [facility] [address] [id number] [place] [address]- 3953 Sep, [facility] [place] [facility] [address] [id number] [place] [address]- 3737 Sep, [facility] [place] [facility] [address] [id number] [place] [address]- 2792 Sep, [facility] [place] [facility] [address] [id number] [place] [address]- 5603 Sep, [facility] [place] [facility] [address] [id number] [place] [address]- 2779 Sep, [facility] [place] [facility] [address] [id number], [place] [address]- 4187 Sep, [facility] [place] [facility] [address] [id number] [place] [address]- 8470 Sep, [facility] [place] [facility] [address] [id number] [place] [address]- 4766 Sep, [facility] [place] [facility] [address] [id number] [place] [address]- 8881 Sep, [facility] [place] [facility] [address] [id number] [place] [address]- 1272 Sep, [facility] [place] [facility] [address] [id number] [place] [address]- 4977 Sep, [facility] [place] [facility] [address] [id number] [place] [address]- 6317 Sep, [facility] [place] [facility] [address] [id number] [place] [address]- 7062 Sep, [facility] [place] [facility] [address] [id number] [place] [address]- 4224 Sep, [facility] [place] [facility] [address] [id number] [place] [address]- 6968 Sep, [facility] [place] [facility] [address] [id number] [place] [address], [place] [address]- 5694 Sep, [facility] [place] [facility] [address] [facility] [id number] [place] [address]- 7627 Sep, [facility] [place] [facility] [address] [facility] [id number] [place] [address]- 7341 Aug, [facility] [place] [facility] [address] [id number] [place] [address]- 1090 31 Aug, 2012 [facility] [place] [facility] [address] [facility] [id number] [place] [address]- 6761 29 Aug, 2012 [facility] [place] [facility] [address] [facility] [id number] [place] [address]- 7889 Aug, [facility] [place] [facility] [address] [facility] [id number] [place] [address]- 4715 27 Aug, 2012 [facility] [place] [facility] [address] [id number], [place] [address]- 6037 18 Aug, 2012 [facility] [place] [facility] [address] [id number] [place] [address] 18 Aug, 2012 [facility] [place] [facility] [address] [facility] [id number] [place] [address]- 4024 17 Aug, 2012 [facility] [place] [facility] [address] [facility] [id number] [place] [address]- 2860 Aug, [facility] [place] [facility] [address] [id number] [place] [address]- 4664 16 Aug, 2012 [facility] [place] [facility] [address] [id number] [place] [address]- 3630 Aug, [facility] [place] [facility] [address] [id number] [place] [address]- 0616 Aug, [facility] [place] [facility] [address] [id number] [place] [address]- 6713 Aug, [facility] [place] [facility] [address] [id number] [place] [address]- 3409 Aug, [facility] [place] [facility] [address] [id number] [place] [address]- 2498 Aug, [facility] [place] [facility] [address] [id number] [place] [address]- 1979 14 Jul, 2012 [facility] [place] [facility] [address] [id number] [place] [address]- 9874 Jul, [facility] [place] [facility] [address] [id number] [place] [address]- 5998 Jun, [facility] [place] [facility] [address] [id number], [place] [address]- 0420 Jun, [facility] [place] [facility] [address] [id number], [place] [address]- 7326 May, [facility] [place] [facility] [address] [id number], [place] [address]- 4430 May, [facility] [place] [facility] [address] [id number] [place] [address]- 7241 May, [facility] [place] [facility] [address] [id number] [place] [address]- 0966 May, [facility] [place] [facility] [address] [id number] 2169 May, [facility] [place] [facility] [address] [id number], [place] [address]- 6528 May, [facility] [address] [id number] [place] [address]- 8565 Apr, [facility] [address] [id number] [place] [address]- 1029 Apr, [facility] [address] [id number] [place] [address]- 6971 March, [facility] [address] [id number] [place] [address]- 8385 March, [facility] [address] [id number] [place] [address]- 2495 March, [facility] [address] [id number] [place] [address]- 2947 March, [facility] [address] [id number] [place] [address]- 5842 March, [facility] [address] [id number] [place] [address]- 0384 March, [facility] [address] [id number] [place] [address]- 3049 30 Feb, 2012 [facility] [address] [id number] [place] [address]- 9905 Feb, [facility] [address] [id number] [place] [address]- 5483 Feb, [facility] [place] [facility] [address] [id number] [place] [address]- 8545 Feb, [facility] [place] [facility] [address] [id number] [place] [address]- 8962 23 Feb, 2012 [facility] [place] [facility] [address] [id number] [place] [address]- 5944 19 Feb, 2012 [facility] [address] [id number] [place] [address]- 9560 10 Feb, 2012 [facility] [place] [facility] [address] [id number] [place] [address] 2546 09 Feb, 2012 [facility] [place] [facility] [address] [id number] [place] [address]- 4916 04 Feb, 2012 [facility] [place] [facility] [address] [id number] [place] [address]- 7416 30 Jan, 2012 [facility] [place] [facility] [address] [id number] [place] [address]- 7566 27 Jan, 2012 [facility] [place] [facility] [address] [id number] [place] [address]- 8206 26 Jan, 2012 [facility] [place] [facility] [address] [id number] [place] [address]- 1556 22 Jan, 2012 [facility] [place] [facility] [address] [id number] [place] [address]- 5575 Jan, [facility] [place] [facility] [address] [id number] [place] [address]- 2250 20 Jan, 2012 [facility] [place] [facility] [address] [id number] [place] [address]- 8595 14 Jan, 2012 [facility] [place] [facility] [address] [id number] [place] [address]- 8435 Jan, [facility] [place] [facility] [address] [id number] [place] [address]- 4908 Jan, [facility] [place] [facility] [address] [id number] [place] [address]- 1076 08 Jan, 2012 [facility] [place] [facility] [address] [id number] [place] [address]- 2356 07 Jan, 2012 [facility] [place] [facility] [address] [id number] [place] [address]- 3686 06 Jan, 2012 [facility] [place] [facility] [address] [id number] [place] [address]- 2546 02 Jan, 2012 [facility] [place] [facility] [address] [id number] [place] [address]- 0691 Jan, [facility] [address] [id number] [place] [address]- 5667 Dec, [facility] [place] [facility] [address] [facility] [id number] [place] [address]- 9066 Dec, [facility] [place] [facility] [address] [facility] [id number] [place] [address]- 1376 Dec, [facility] [place] [facility] [address] [facility] [id number] [place] [address]- 3990 Dec, [facility] [place] [facility] [address] [facility] [id number] [place] [address]- 8986 16 Dec, 2011 [facility] [place] [facility] [address] [facility] [id number] [place] [address]- 2306 08 Dec, 2011 [facility] [id number] [place] [address]- 4486 08 Dec, 2011 [facility] [place] [facility] [address] [facility] [id number] [place] [address]- 5567 Dec, [facility] [place] [facility] [address] [id number] [place] [address]- 4703 Dec, [facility] [place] [facility] [address] [facility] [id number] [place] [address]- 0730 Nov, [facility] [place] [facility] [id number] [place] [address]- 2831 Nov, [facility] [place] [facility] [address] [facility] [id number] [place] [address]- 4526 Nov, [facility] [place] [facility] [address] [facility] [id number] [place] [address]- 2986 Nov, [facility] [place] [facility] [address] [facility] [id number] [place] [address]- 9861 Oct, [facility] [place] [facility] [id number] [place] [address]- 1766 Oct, [facility] [place] [facility] [address] [id number] [place] [address]- 2517 Oct, [facility] [place] [facility] [address] [id number] [place] [address]- 6981 Oct, [facility] [place] [facility] [address] [id number] [place] [address]- 0636 Oct, [facility] [place] [facility] [address] [id number] [place] [address]- 5732 Oct, [facility] [place] [facility] [address] [id number] [place] [address]- 6537 Oct, [facility] [place] [facility] [address] [id number] [place] [address]- 4390 Sep, [facility] [place] [facility] [address] [id number] [place] [address]- 2517 Sep, [facility] [place] [facility] [address] [id number] [place] [address]- 5280 Sep, [facility] [place] [facility] [address] [id number] [place] [address]- 7919 Sep, [facility] [place] [facility] [address] [id number] [place] [address]- 4560 Sep, [facility] [place] [facility] [address] [id number] [place] [address]- 0315 Sep, [facility] [place] [facility] [address] [id number] [place] [address]- 7393 Sep, [facility] [place] [facility] [address] [id number] [place] [address]- 1614 Sep, [facility] [place] [facility] [address] [id number] [place] [address]- 2613 Sep, [facility] [place] [facility] [address] [id number] [place] [address]- 3039 Aug, [facility] [place] [facility] [address] [id number] [place] [address]- 2399 Aug, [facility] [address] [id number] [place] [address]- 9043 Aug, [facility] [address] [id number] [place] [address]- 8936 May, [facility] [address] [facility] [id number] [place] [address]- 7806 Nov, [facility] [address] [id number] [place] [address]- 7548 Oct, [facility] [address] [id number] [place] [address]- 4240 Oct, [facility] [address] [id number] [place] [address]- 5341 Oct, [facility] [address] [facility] [id number] [place] [address]- 5796 Oct, [facility] [place] [facility] [address] [id number], [place] [address]- 0081 Oct, [facility] [address] [id number], [place] [address]- 7116 Sep, [facility] [place] [facility] [address] [id number], [place] [address]- 3865 Sep, [facility] [place] [facility] [address] [id number], [place] [address]- 7377 14 Jul, 2010 [facility] [place] [facility] [address] [id number], [place] [address]- 0632 Oct, [facility] [place] [facility] [address] [id number] [place] [address]- 4256 Oct, [facility] [place] [facility] [address] [facility] [id number], [place] [address]- 6900 Oct, [facility] [place] [facility] [address] [facility] [id number], [place] [address]- 1496 Oct, [facility] [place] [facility] [address] [id number], [place] [address]- 9182 Sep, [facility] [address]00565[place], [place] [address]- 2578 Sep, [facility] [address]00565[place], [place] [address]- 9748 Sep, [facility] [address]00565[place], [place] [address]- 3734 Sep, [facility] [address] [id number], [place] [address]- 8842 Sep, [facility] [address]00565[place], [place] [address]- 8157 Jul, [facility] [address]65[address], [place] [address]- 7269 Apr, [facility] [address] [id number], [place] [address]- 5762 12 Dec, 2008 IMMUNIZATIONS No Known Immunizations SOCIAL HISTORY Never Assessed REASON FOR VISIT Shingrix Vaccine PLAN OF CARE VITAL SIGNS MEDICATIONS Medication Instructions Dosage Frequency Start Date End Date Duration Status Shingrix 50 mcg as directed Jul, 1 dose Active RESULTS No Results PROCEDURES No Known [...]
--- OUTSIDE RECORDS SUMMARY | 2018-11-26 15:42 | XMS REPORT ---
Author Author KING FISHMAN Organization [facility] Address [address] [place] [address] Care Team Providers Care Secondary Education Professor Name Role Phone KING FISHMAN Unavailable PROBLEMS Type Condition ICD9-CM Code KUC37-SN Code Onset Dates Condition Status SNOMED Code Problem Lumbago with sciatica, left side M54.42 Active 048870503 Problem Other chronic pain G89.29 Active 41322293 Problem Lumbago with sciatica, right side M54.41 Active [id number] Problem Iron deficiency anemia due to chronic blood loss D50.0 Active 563348083 Problem Seizures R56.9 Active 87827400 Problem Chronic obstructive pulmonary disease, unspecified COPD type J44.9 Active 21879147 Problem Pain in right ankle and joints of right foot M25.571 Active 05053182271414 Problem DM 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 Active 59576738 Problem Cigarette nicotine dependence without complication F17.210 Active 40292215 Problem Mixed hyperlipidemia E78.2 Active 599639193 Problem Essential hypertension I10 Active 77746292 Problem Prediabetes R73.03 Active 724733674 Problem Acquired hypothyroidism E03.9 Active 558026209 Problem Reactive depression F32.9 Active 14715559 Problem Gastroesophageal reflux disease, esophagitis presence not specified K21.9 Active [id number] ALLERGIES No Information ENCOUNTERS Encounter Location Date Diagnosis [facility] [address] [facility] [id number] [address] Oct, [facility] [id number] [place] [address]- 1264 Jul, [facility] [address] [id number] [address] 07 Jul, 2018 Onychomycosis B35.1 ; Onychocryptosis L60.0 and DM 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 [facility] [address] [address] Jun, Pain in thoracic spine M54.6 [facility] [address] [address]- 1149 Jun, Iron deficiency anemia due to chronic blood loss D50.0 and Hematochezia K92.1 [facility] [address] [address] Jun, Gastroenteritis K52.9 and Abnormal RBC indices R71.8 [facility] [address] [address] Jun, [place] [address] [address] Jun, Chest congestion R09.89 and Seizures R56.9 [facility] [address] [address]- [address] May, Pain in thoracic spine M54.6 [facility] [address] [address]- [address] May, [facility] [address] [address]- [address] May, [facility] [address] [address]- [address] May, [facility] [address] [address] 2547 May, Acute non-recurrent frontal sinusitis J01.10 and Dermatitis L30.9 [facility] [address] [address]- [address] May, [facility] [address] 80721- 2573 May, Pain in thoracic spine M54.6 [facility] [address] [address]- 2210 May, [facility] [address] [address] May, Acute nasopharyngitis J00 [facility] [id number] [place] [address] 40398- 9545 May, [facility] [address] [place] [address] 62803- 8001 May, [facility] [id number] [place] [address] 77759- 3897 Apr, [facility] [id number] [place] [address] 00725- 5044 Apr, [facility] [id number] [place] [address] 39173- 2787 Apr, [facility] [id number] [place] [address] 09525- 5855 Apr, [facility] [id number] [place] [address] 61460- 1802 Apr, Pain in right ankle and joints of right foot M25.571 [facility] [id number] [place] [address] 63176- 4945 Apr, [facility] [address] [place] [address] 38599- 4018 18 Apr, 2018 Bronchitis J40 ; Pain in right ankle and joints of right foot M25.571 ; Other chronic pain G89.29 ; Prediabetes R73.03 ; Chronic obstructive pulmonary disease, unspecified COPD type J44.9 and Cigarette nicotine dependence without complication F17.210 [facility] [id number] [place] [address] 239[address] -4418 13 Apr, 2018 Seasonal allergic rhinitis, unspecified trigger J30.2 [facility] [address] [address] 08 Apr, 2018 Onychomycosis B35.1 ; Onychocryptosis L60.0 and DM 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 [place] [id number] [place] [address] 33667- 8892 Apr, Reactive depression F32.9 ; Thoracic myofascial strain, initial encounter S29.019A and Leg cramps R25.2 [place] [address] 36473- 7783 March, [place] [address] 35971- 6682 March, Type 2 diabetes mellitus with hyperglycemia E11.65 [place] [address] 88328- 5056 March, Reactive depression F32.9 [place] [address] 52346- 8875 March, Pain in thoracic spine M54.6 and Other chronic pain G89.29 [place] [address] [address]26- 8503 Feb, [place] [address] 93887- 3511 Jan, Reactive depression F32.9 ; Essential hypertension I10 ; Gastroesophageal reflux disease, esophagitis presence not specified K21.9 ; Lumbago with sciatica, left side M54.42 and Lumbago with sciatica, right side M54.41 [place] [id number] [place] [address] 29943- 4284 Jan, Reactive depression F32.9 and Pharyngoesophageal dysphagia R13.14 [place] [address] 8[address]- 1778 Jan, [place] [address] 05296- 6680 Jan, Encounter for immunization Z23 [address] [address]- [address] Jan, Onychomycosis B35.1 and DM 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 [facility] [id number] [place] [address] 28060- 2406 Jan, [facility] [id number] [place] [address] 61604- 2819 Jan, Prediabetes R73.03 [facility] [address] 30383- 0585 Dec, [facility] [address] 90327- 0272 Dec, Essential hypertension I10 ; Mixed hyperlipidemia E78.2 ; Acquired hypothyroidism E03.9 ; Reactive depression F32.9 and Prediabetes R73.03 [facility] [id number] [place] [address] 19223- 6074 Dec, [facility] [address] 38364- 6152 Dec, [facility] [id number] [place] [address] 25016- 8449 Dec, DM 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 [facility] [id number] [place] [address] 62418- 1196 Oct, [facility] [id number] [place] [address] 89729- 6232 March, Onychomycosis B35.1 and DM 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 [facility] [id number] [place] [address] 85145- 5122 Jun, [facility] [id number] [place] [address] 72756- 6947 Jun, [facility] [address] [id number] [place] [address]- 5296 Jun, COPD with acute exacerbation 491.21 [facility] [address] [id number] [place] [address]- 4057 Apr, [facility] [address] [id number] [place] [address]- 1218 Feb, [facility] [place] [facility] [address] [id number] [place] [address]- 8209 Feb, [facility] [address] [id number] [place] [address]- 8534 Jan, [facility] [place] [facility] [address] [id number] [place] [address]- 8483 Jan, [facility] [place] [facility] [address] [id number] [place] [address]- 1146 Jan, [facility] [place] [facility] [address] [id number] [place] [address]- 7855 Jan, [facility] [place] [facility] [address] [id number] [place] [address]- 0618 Jan, [facility] [place] [facility] [address] [id number] [place] [address]- 5459 Jan, [facility] [place] [facility] [address] [id number], [place] [address]- 3326 Jan, [facility] [place] [facility] [address] [id number], [place] [address]- 7238 Jan, [facility] [place] [facility] [address] [id number] [place] [address]- 9296 Jan, [facility] [place] [facility] [address] [id number] [place] [address]- 0096 Jan, [facility] [place] [facility] [address] [id number] [place] [address]- 2314 Jan, [facility] [place] [facility] [address] [id number] [place] [address]- 5300 18 Jan, 2014 [facility] [place] [facility] [address] [id number] [place] [address]- 5829 18 Jan, 2015 [facility] [place] [facility] [address] [id number] [place] [address]- 7679 16 Jan, 2014 [facility] [place] [facility] [address] [id number] [place] [address]- 9634 16 Jan, 2014 [facility] [place] [facility] [address] [id number] [place] [address]- 1613 16 Jan, 2014 [facility] [place] [facility] [address] [id number] [place] [address]- 7332 16 Jan, 2014 [facility] [place] [facility] [address] [id number] [place] [address]- 2312 15 Jan, 2014 [facility] [place] [facility] [address] [id number] [place] [address]- 6273 13 Jan, 2014 [facility] [place] [facility] [address] [id number] [place] [address]- 1999 13 Jan, 2015 [facility] [place] [facility] [address] [id number] [place] [address]- 5184 13 Jan, 2014 [facility] [place] [facility] [address] [id number] [place] [address]- 5026 13 Jan, 2015 [facility] [place] [facility] [address] [id number] [place] [address]- 1479 12 Jan, 2015 [facility] [place] [facility] [address] [id number] [place] [address]- 8161 04 Jan, 2015 [facility] [place] [facility] [address] [id number] [place] [address]- 8936 04 Jan, 2015 [facility] [place] [facility] [address] [id number] [place] [address]- 4738 24 Dec, 2014 [facility] [place] [facility] [address] [id number] [place] [address]304 24 Dec, 2014 [facility] [place] [facility] [address] [id number] [place] [address]- 1316 Dec, [facility] [place] [facility] [address] [id number] [place] [address]- 6568 Dec, [facility] [place] [facility] [address] [id number] [place] [address]- 4872 Dec, [facility] [place] [facility] [address] [id number] [place] [address]- 8297 Dec, 2014 [facility] [place] [facility] [address] [id number] [place] [address]- 3793 Dec, [facility] [place] [facility] [address] [id number] [place] [address]- 3761 Dec, [facility] [place] [facility] [address] [id number] [place] [address]- 1194 Dec, [facility] [place] [facility] [address] [id number] [place] [address]- 1701 Dec, [facility] [place] [facility] [address] [id number] [place] [address]- 4815 Dec, [facility] [place] [facility] [address] [id number] [place] [address]- 8840 Dec, [facility] [place] [facility] [address] [id number] [place] [address]- 5046 Nov, [facility] [place] [facility] [address] [id number] [place] [address]- 6962 Nov, [facility] [place] [facility] [address] [id number] [place] [address]- 3449 Nov, [facility] [place] [facility] [address] [id number] [place] [address]- 5335 Nov, [facility] [place] [facility] [address] [id number] [place] [address]- 6509 Nov, [facility] [place] [facility] [address] [id number] [place] [address]- 5028 Nov, [facility] [address] [id number] [place] [address]- 9451 Nov, [facility] [address] [id number] [place] [address]- 6630 Nov, [facility] [address] [id number] [place] [address]- 4404 Nov, [facility] [place] [facility] [address] [id number] [place] [address]- 8902 Nov, [facility] [address] [id number] [place] [address]- 2150 Nov, [facility] [address] [id number] [place] [address]- 3064 Nov, [facility] [address] [id number] [place] [address]- 9776 Oct, [facility] [address] [id number] [place] [address]- 9549 Oct, [facility] [address] [id number] [place] [address]- 4939 Oct, [facility] [address] [id number] [place] [address]- 4429 Oct, [facility] [place] [facility] [address] [id number] [place] [address]- 9064 Oct, [facility] [address] [id number] [place] [address]- 8256 Oct, [facility] [place] [facility] [address] [id number] [place] [address]- 2886 Oct, [facility] [place] [facility] [address] [id number] [place] [address]- 4639 Oct, [facility] [place] [facility] [address] [id number] [place]90 Oct, [facility] [place] [facility] [address] [id number] [place] [address]- 9525 17 Oct, 2014 [facility] [place] [facility] [address] [id number] [place] [address]- 9395 Oct, [facility] [place] [facility] [address] [id number] [place] [address]- 8709 16 Oct, 2014 [facility] [place] [facility] [address] [id number] [place] [address]- 9516 Oct, [facility] [place] [facility] [address] [id number] [place] [address]- 0739 Oct, [facility] [place] [facility] [address] [id number] [place] [address]- 4538 Oct, [facility] [place] [facility] [address] [id number] [place] [address]- 2322 Sep, [facility] [place] [facility] [address] [id number] [place] [address]- 4433 Sep, [facility] [place] [facility] [address] [id number] [place] [address]- 4715 Sep, [facility] [place] [facility] [address] [id number], [place] [address]- 9736 Sep, [facility] [place] [facility] [address] [id number], [place] [address]- 9692 Aug, [facility] [place] [facility] [address] [id number], [place] [address]- 2039 Aug, [facility] [place] [facility] [address] [id number] [place] [address]- 1722 Aug, [facility] [place] [facility] [address] [id number], [place] [address]- 4168 Aug, [facility] [place] [facility] [address] [id number] 0600 Aug, [facility] [place] [facility] [address] [id number], [place] [address]- 7306 Aug, [facility] [place] [facility] [address] [id number] [place] [address]- 3670 29 Jul, 2014 [facility] [place] [facility] [address] [id number] [place] [address]- 1697 29 Jul, 2014 [facility] [place] [facility] [address] [id number] [place] [address]- 4296 15 Jul, 2014 [facility] [place] [facility] [address] [id number] [place] [address]- 5782 15 Jul, 2014 [facility] [place] [facility] [address] [id number] [place] [address]- 1465 08 Jul, 2014 [facility] [place] [facility] [address] [id number] [place] [address]- 9477 Jul, [facility] [place] [facility] [address] [id number] [place] [address]- 9389 Jun, [facility] [place] [facility] [address] [id number] [place] [address]- 4279 Jun, [facility] [place] [facility] [address] [id number] [place] [address]- 8553 Jun, [facility] [place] [facility] [address] [id number] [place] [address]- 3020 Jun, [facility] [place] [facility] [address] [id number] [place] [address]- 1284 Jun, [facility] [place] [facility] [address] [id number], [place] [address]- 3845 Jun, [facility] [place] [facility] [address] [id number] [place] [address]- 8130 Jun, [facility] [place] [facility] [address] [id number] [place] [address]- 7715 May, [facility] [place] [facility] [address] [id number] [place] [address]- 1914 May, [facility] [place] [facility] [address] [id number] [place] [address]- 2750 May, 2013 [facility] [place] [facility] [address] [id number] [place] 3674 May, [facility] [place] [facility] [address] [id number] [place] [address]- 5666 May, 2013 [facility] [place] [facility] [address] [id number] [place] [address]- 2506 May, 2013 [facility] [place] [facility] [address] [id number] [place] [address]- 5236 May, 2013 [facility] [place] [facility] [address] [id number] [place] [address]- 4025 May, [facility] [place] [facility] [address] [id number] [place] [address]- 2778 May, [facility] [place] [facility] [address] [id number] [place] [address]- 6461 May, [facility] [place] [facility] [address] [id number] [place] [address]- 5014 May, [facility] [place] [facility] [address] [id number] [place] [address]- 1036 May, [facility] [place] [facility] [address] [id number] [place] [address]- 4551 Apr, [facility] [place] [facility] [address] [id number] [place] [address]- 3542 Apr, [facility] [place] [facility] [address] [id number] [place] [address]- 1288 Apr, [facility] [place] [facility] [address] [id number] [place] [address]- 3061 Apr, [facility] [place] [facility] [address] [id number] [place] [address]- 2146 Apr, [facility] [place] [facility] [address] [id number] [place] [address]- 7346 Apr, [facility] [place] [facility] [address] [id number] [place] [address]- 4982 Apr, [facility] [place] [facility] [address] [id number] [place] [address]- 0457 Apr, [facility] [place] [facility] [address] [id number] [place] [address]- 5514 Apr, [facility] [place] [facility] [address] [id number] [place] [address]- 3510 Apr, [facility] [place] [facility] [address] [id number] [place] [address]- 6318 March, [facility] [place] [facility] [address] [id number] [place] [address]- 0628 March, [facility] [place] [facility] [address] [id number] [place] [address]- 7919 March, [facility] [place] [facility] [address] [id number] [place] [address]- 3102 March, [facility] [place] [facility] [address] [id number] [place] [address]- 8145 March, [facility] [place] [facility] [address] [id number] [place] [address]- 7693 March, [facility] [place] [facility] [address] [id number] [place] [address]- 2207 Feb, [facility] [place] [facility] [address] [id number] [place] [address]- 1197 Feb, [facility] [place] [facility] [address] [id number] [place] [address]- 7424 Feb, [facility] [place] [facility] [address] [id number] [place] [address]- 8204 Feb, [facility] [place] [facility] [address] [id number] [place] [address] Feb, [facility] [place] [facility] [address] [id number] [place] [address] Feb, [facility] [place] [facility] [address] [id number] [place] [address] Feb, [facility] [place] [facility] [address] [id number] [place] [address] Feb, [facility] [place] [facility] [address] [id number] [place] [address] Feb, [facility] [place] [facility] [address] [id number] [place] [address] Feb, [facility] [place] [facility] [address] [id number] [place] [address] Jan, [facility] [place] [facility] [address] [id number] [place] [address] Jan, [facility] [place] [facility] [address] [id number] [place] [address] Jan, [facility] [place] [facility] [address] [id number] [place] [address] Jan, [facility] [place] [facility] [address] [id number] [place] [address] Jan, [facility] [place] [facility] [address] [facility] [id number] [place] [address] Jan, [facility] [place] [facility] [address] [id number] [place] [address] Jan, [facility] [place] [facility] [address] [id number] [place] [address] Jan, [facility] [place] [facility] [address] [id number] [place] [address] Dec, [facility] [place] [facility] [address] [id number] [place] [address] Dec, [facility] [place] [facility] [address] [id number] [place] [address]99 Dec, [facility] [place] [facility] [address] [id number] [place] [address] Dec, [facility] [place] [facility] [address] [id number] [place] [address] Dec, [facility] [place] [facility] [address] [id number] [place] [address] Dec, [facility] [place] [facility] [address] [id number] [place] [address] Dec, [facility] [place] [facility] [address] [id number] [place] [address] 70[address] Dec, [facility] [place] [facility] [address] [id number] [place] [address] Nov, [facility] [place] [facility] [address] [id number] [place] [address]329 Nov, [facility] [place] [facility] [address] [id number] [place] [address]32 Nov, [facility] [place] [facility] [address] [id number] [place] [address]- [address]228 Nov, [facility] [place] [facility] [address] [id number] [place] [address]- 9431 Nov, [facility] [place] [facility] [address] [id number] [address] Nov, [facility] [place] [facility] [address] [id number], [place] [address] Nov, [facility] [place] [facility] [address] [id number] [place] [address] 60[address] Nov, [facility] [place] [facility] [address] [id number] [place] [address]99 Nov, [facility] [place] [facility] [address] [id number] [place] [address]254 Nov, [facility] [place] [facility] [address] [id number] [place] [address] Nov, [facility] [address] [id number] [place] [address] Oct, [facility] [place] [facility] [address] [id number] [place] [address] Oct, [facility] [place] [facility] [address] [id number] [place] [address] 1008 Oct, [facility] [place] [facility] [address] [id number] [place] [address] Oct, [facility] [place] [facility] [address] [id number] [place] [address] Sep, [facility] [place] [facility] [address] [id number] [place] [address]598 Sep, [facility] [place] [facility] [address] [id number] [place] [address] Sep, [facility] [place] [facility] [address] [id number] [place] [address]- [address] Sep, [facility] [place] [facility] [address] [id number] [place] [address] Aug, [facility] [place] [facility] [address] [facility] [id number] [place] [address] Aug, [facility] [place] [facility] [address] [id number] [place] [address] 8565 Aug, [facility] [place] [facility] [address] [id number], [place] [address] Aug, [facility] [place] [facility] [address] [id number] [place] [address] Aug, [facility] [place] [facility] [address] [id number] [place] [address]- [address] Aug, [facility] [place] [facility] [address] [id number] [address] Aug, [facility] [place] [facility] [address] [id number] [place] [address] 5165 Aug, [facility] [place] [facility] [address] [id number] [place] [address] 3832 28 Jul, 2012 [facility] [place] [facility] [address] [id number] [place] [address]- 254 27 Jul, 2012 [facility] [place] [facility] [address] [id number] [place] [address]- 5124 26 Jul, 2012 [facility] [address] [id number] [place] [address]- 9090 24 Jul, 2012 [facility] [address] [id number] [place] [address]- 3974 24 Jul, 2012 [facility] [address] [id number] [place] [address]- 6479 23 Jul, 2012 [facility] [address] [id number] [place] [address]- 7796 19 Jul, 2012 [facility] [address] [id number] [place] [address]- 2976 18 Jul, 2012 [facility] [place] [facility] [address] [id number] [place] [address] 8271 17 Jul, 2012 [facility] [place] [facility] [address] [id number] [place] [address]- 1920 16 Jul, 2012 [facility] [place] [facility] [address] [id number] [place] [address]- 2540 13 Jul, 2012 [facility] [place] [facility] [address] [id number] [place] [address] 2543 13 Jul, 2012 [facility] [place] [facility] [address] [id number] [place] [address]- 2540 12 Jul, 2012 [facility] [place] [facility] [address] [id number] [place] [address]- 9267 11 Jul, 2012 [facility] [place] [facility] [address] [id number] [place] [address]- 2546 Jul, [facility] [place] [facility] [address] [id number] [place] [address]- 0472 Jun, [facility] [place] [facility] [address] [id number] [place] [address]- 3270 Jun, [facility] [place] [facility] [address] [id number] [place] [address]- 0571 Jun, [facility] [place] [facility] [address] [id number] [place] [address]- 9335 May, [facility] [place] [facility] [address] [id number] [place] [address]- 0563 May, [facility] [place] [facility] [address] [id number] [place] [address]- 8762 May, [facility] [place] [facility] [address] [id number] [place] [address]- 5176 May, [facility] [place] [facility] [address] [id number] [place] [address]- 4352 Apr, [facility] [place] [facility] [address] [id number] [place] [address]- 0079 Apr, [facility] [place] [facility] [address] [id number] [place] [address]- 6518 Apr, [facility] [place] [facility] [address] [id number] [place] [address]- 7589 Apr, [facility] [place] [facility] [address] [id number] [place] [address]- 1135 March, [facility] [place] [facility] [address] [id number] [place] [address]- 1169 March, [facility] [place] [facility] [address] [id number] [place] [address]- 3948 March, [facility] [place] [facility] [address] [id number] [place] [address]- 4737 Feb, [facility] [place] [facility] [address] [id number] [place] [address]- 4383 Feb, [facility] [address] [id number] [place] [address]- 8652 Jan, [facility] [place] [facility] [address] [id number] [place] [address]- 9712 Jan, [facility] [address] [id number] [place] [address]- 5692 Jan, [facility] [place] [facility] [address] [id number] [place] [address]- 4974 Jan, [facility] [address] [id number] [place] [address]- 4046 Jan, [facility] [place] [facility] [address] [facility] [id number] [place] [address]- 1726 Dec, [facility] [place] [facility] [address] [facility] [id number] [place] [address]- 7569 Dec, [facility] [address] [id number] [place] [address]- 6729 Dec, [facility] [place] [facility] [address] [id number] [address] Dec, [facility] [address] [id number] [place] [address]- 3132 Dec, [facility] [place] [facility] [address] [facility] [id number] [place] [address]- 4809 Dec, [facility] [place] [facility] [address] [facility] [id number] [place] [address]- 2585 Dec, [facility] [place] [facility] [address] [facility] [id number] [place] [address]- 0304 Dec, [facility] [place] [facility] [address] [facility] [id number] [place] [address]- 0140 Nov, [facility] [place] [facility] [id number] [place] [address]- 9490 Nov, [facility] [place] [facility] [address] [id number] [place] [address]- 3960 Nov, [facility] [place] [facility] [address] [id number] [place] [address]- 8026 Nov, [facility] [place] [facility] [address] [id number] [place] [address]- 6106 Nov, [facility] [place] [facility] [address] [id number] [place] [address]- 3485 Nov, [facility] [place] [facility] [address] [id number] [place] [address]- 7117 Nov, [facility] [place] [facility] [address] [id number] [place] [address]- 0964 Oct, [facility] [place] [facility] [address] [id number] [place] [address]- 4296 Oct, [facility] [place] [facility] [address] [id number] [place] [address]- 8754 Oct, [facility] [place] [facility] [address] [id number] [place] [address]- 8871 Oct, [facility] [place] [facility] [address] [id number] [place] [address]- 1946 Oct, [facility] [place] [facility] [address] [id number] [place] [address]- 7651 Oct, [facility] [place] [facility] [address] [id number] [place] [address]- 5649 Oct, [facility] [place] [facility] [address] [id number] [place] [address]- 3132 Oct, [facility] [place] [facility] [address] [id number] [place] [address]- 3853 Sep, [facility] [place] [facility] [address] [id number] [place] 9147 Sep, [facility] [place] [facility] [address] [id number] [place] [address]- 2952 Sep, [facility] [place] [facility] [address] [id number] [place] [address]- 3742 Sep, [facility] [place] [facility] [address] [id number] [place] [address]- 3112 Sep, [facility] [place] [facility] [address] [id number] [place] [address]- 9597 Sep, [facility] [place] [facility] [address] [id number] [place] [address]- 2744 Sep, [facility] [place] [facility] [address] [id number] [place] [address]- 8470 Sep, [facility] [place] [facility] [address] [id number] [place] [address]- 3643 Sep, [facility] [place] [facility] [address] [id number] [place] [address]- 2737 Sep, [facility] [place] [facility] [address] [id number] [place] [address]- 5372 Sep, [facility] [place] [facility] [address] [id number] [place] [address]- 4403 Sep, [facility] [place] [facility] [address] [id number] [place] [address]- 5983 Sep, [facility] [place] [facility] [address] [id number] [place] [address]- 8842 Sep, [facility] [place] [facility] [address] [id number] [place] [address]- 3253 Sep, [facility] [place] [facility] [address] [id number] [place] [address]- 4905 Sep, [facility] [place] [facility] [address] [id number] [place] [address]- 6646 Sep, [facility] [place] [facility] [address] [id number] [place] [address]- 9620 Sep, [facility] [place] [facility] [address] [id number] [place] [address]- 7754 Sep, [facility] [place] [facility] [address] [id number] [place]678 Sep, [facility] [place] [facility] [address] [id number] [place] [address] Aug, [facility] [place] [facility] [address] [id number] [place] [address]- 6173 Aug, [facility] [place] [facility] [address] [id number] [place] [address]- 2658 Aug, [facility] [place] [facility] [address] [id number] [place] [address]- 7897 Aug, [facility] [place] [facility] [address] [id number] [place] [address]- 1357 Aug, [facility] [place] [facility] [address] [id number], [place] [address]- 3018 Aug, [facility] [place] [facility] [address] [id number], [place] [address]- 5728 Aug, [facility] [place] [facility] [address] [facility] [id number], [place] [address]- 6240 Aug, [facility] [place] [facility] [address] [facility] [id number], [place] [address]- 4303 16 Aug, 2012 [facility] [place] [facility] [address] [id number], [place] [address]- 8253 16 Aug, 2012 [facility] [place] [facility] [address] [id number], [place] [address]- 7678 15 Aug, 2012 [facility] [place] [facility] [address] [facility] [id number], [place] [address]- 2061 09 Aug, 2012 [facility] [place] [facility] [address] [facility] [id number][place] 8929 05 Aug, 2012 [facility] [place] [facility] [address] [id number], [place] [address]- 8402 05 Aug, 2012 [facility] [place] [facility] [address] [id number] [place] [address]- 7399 Aug, [facility] [place] [facility] [address] [id number] [place] [address]- 0932 14 Jul, 2012 [facility] [place] [facility] [address] [id number] [place] [address]- 5109 Jul, [facility] [place] [facility] [address] [id number] [place] [address]- 1260 Jun, [facility] [place] [facility] [address] [id number] [place] [address]- 9272 Jun, [facility] [place] [facility] [address] [id number] [place] [address]- 2964 May, [facility] [place] [facility] [address] [id number] [place] [address]- 0243 May, [facility] [place] [facility] [address] [id number] [place] [address]- 9887 May, [facility] [place] [facility] [address] [id number] [place] [address]- 7959 May, [facility] [place] [facility] [address] [id number] [place] [address]- 8176 May, [facility] [place] [facility] [address] [id number] [place] [address]- 0840 May, [facility] [place] [facility] [address] [id number] [place] [address]- 4054 Apr, [facility] [place] [facility] [address] [id number] [place] [address]- 8877 Apr, [facility] [place] [facility] [address] [id number] [place] [address]- 8181 March, [facility] [place] [facility] [address] [id number] [place] [address]- 2878 March, [facility] [place] [facility] [address] [id number] [place] [address]- 6021 16 Mar, 2012 [facility] [place] [facility] [address] [id number] [place] [address]- 1790 March, [facility] [place] [facility] [address] [id number] [place] [address]- 7126 March, [facility] [place] [facility] [address] [id number] [place] [address]- 3993 March, [facility] [place] [facility] [address] [id number] [place] [address]- 8098 Feb, [facility] [place] [facility] [address] [id number] [place] [address]- 8454 Feb, [facility] [place] [facility] [address] [id number] [place] [address]- 2592 Feb, [facility] [place] [facility] [address] [id number] [place] [address]- 0436 Feb, [facility] [place] [facility] [address] [id number] [place] [address]- 7617 Feb, [facility] [place] [facility] [address] [id number] [place] [address]- 4092 Feb, [facility] [place] [facility] [address] [id number] [place] [address]- 9549 Feb, [facility] [place] [facility] [address] [id number] [place] [address]- 2697 Feb, [facility] [place] [facility] [address] [id number] [place] [address]- 5395 Feb, [facility] [place] [facility] [address] [id number] [place] [address]- 2620 Jan, [facility] [place] [facility] [address] [id number] [place] [address]- 2034 Jan, [facility] [place] [facility] [address] [id number] [place] [address]- 6179 26 Jan, 2012 [facility] [place] [facility] [address] [id number] [place] [address]- 7259 22 Jan, 2012 [facility] [place] [facility] [address] [id number] [place] [address]- 7641 21 Jan, 2012 [facility] [place] [facility] [address] [id number] [place] [address]- 5995 20 Jan, 2012 [facility] [place] [facility] [address] [id number] [place] [address]- 1789 14 Jan, 2012 [facility] [place] [facility] [address] [id number] [place] [address]- 6101 09 Jan, 2012 [facility] [place] [facility] [address] [id number] [place] [address]- 8817 09 Jan, 2012 [facility] [place] [facility] [address] [id number] [place] [address]- 8027 08 Jan, 2012 [facility] [place] [facility] [address] [id number] [place] [address]- 2451 07 Jan, 2012 [facility] [place] [facility] [address] [id number] [place] [address]- 6531 06 Jan, 2012 [facility] [place] [facility] [address] [id number] [place] [address]- 9442 Jan, [facility] [place] [facility] [address] [id number] [place] [address]- 6304 Jan, [facility] [place] [facility] [address] [id number] [place] [address]- 4036 Dec, [facility] [place] [facility] [address] [id number] [place] [address]- 2323 Dec, [facility] [place] [facility] [address] [id number] [place] [address]- 0184 Dec, [facility] [place] [facility] [address] [id number] [place] [address]- 9456 Dec, [facility] [place] [facility] [address] [id number] [place] [address]- 9386 16 Dec, 2011 [facility] [address] [id number] [place] [address]- 2976 08 Dec, 2011 [facility] [place] [facility] [address] [id number] [place] [address] 2546 08 Dec, 2011 [facility] [address] [id number] [place] [address] 2546 07 Dec, 2011 [facility] [place] [facility] [address] [id number] [place] [address] 2546 07 Dec, 2011 [facility] [place] [facility] [address] [id number] [place] [address]- 4156 Nov, [facility] [address] [id number] [place] [address]- 7047 Nov, [facility] [address] [facility] [id number] [place] [address]- 9239 Nov, [facility] [address] [id number] [place] [address]- 4570 Nov, [facility] [address] [facility] [id number] [place] [address]- 1316 Oct, [facility] [address] [facility] [id number] [place] [address] 2546 Oct, [facility] [address] [id number] [place] [address] 2546 Oct, [facility] [place] [facility] [address] [id number] [place] [address] 2546 23 Oct, 2011 [facility] [place] [facility] [address] [id number] [place] [address] 2546 13 Oct, 2011 [facility] [place] [facility] [address] [id number] [place] [address] 2546 12 Oct, 2011 [facility] [place] [facility] [address] [id number] [place] [address]- 9393 Oct, [facility] [place] [facility] [address] [id number] [place] [address]- 8173 Sep, [facility] [place] [facility] [address] [id number] [place] [address]- 9058 Sep, [facility] [place] [facility] [address] [id number] [place] [address]- 4887 Sep, [facility] [place] [facility] [address] [id number] [place] [address]- 1020 Sep, [facility] [place] [facility] [address] [id number] [place] [address]- 2306 Sep, [facility] [place] [facility] [address] [id number] [place] [address]- 8139 Sep, [facility] [place] [facility] [address] [id number] [place] [address]- 6365 Sep, [facility] [place] [facility] [address] [id number], [place] [address]- 9815 Sep, [facility] [place] [facility] [address] [id number] [place] [address]- 4997 Sep, [facility] [place] [facility] [address] [id number] [place] [address]- 9603 Aug, [facility] [place] [facility] [address] [id number], [place] [address]- 9638 Aug, [facility] [place] [facility] [address] [id number], [place] [address]- 0206 Aug, [facility] [place] [facility] [address] [id number] [place] [address]- 7893 May, [facility] [place] [facility] [address] [id number], [place] [address]- 5379 Nov, [facility] [place] [facility] [address] [id number] [place] [address]- 0390 Oct, [facility] [place] [facility] [address] [id number] [place] [address]- 4476 30 Oct, 2010 [facility] [address] [id number] [place] [address]- 8066 30 Oct, 2010 [facility] [place] [facility] [address] [id number] [place] [address] 2546 Oct, [facility] [address] [id number] [place] [address] 2546 Oct, [facility] [place] [facility] [address] [id number] [place] [address] 2546 Sep, [facility] [address] [id number] [place] [address]- 9846 Sep, [facility] [address] [id number] [place] [address]- 6226 14 Jul, 2010 [facility] [address] [id number] [place] [address]- 9560 Oct, [facility] [address] [id number] [place] [address] 2541 Oct, [facility] [address] [id number] [place] [address] 2546 Oct, [facility] [address] [facility] [id number] [place] [address] Oct, [facility] [address] [id number] [place] [address] Sep, [facility] [place] [facility] [address] [id number], [place] [address] Sep, [facility] [place] [facility] [address] [id number] [place] [address] Sep, [facility] [place] [facility] [address] [facility] [id number] [place] [address] Sep, [facility] [place] [facility] [address] [id number], [place] [address] Sep, [facility] [address] [facility] [id number] [place] [address] Jul, [facility] [address] [facility] [id number], [place] [address] Apr, [facility] [address] [facility] [id number] [place] [address] Dec, IMMUNIZATIONS No Known Immunizations SOCIAL HISTORY Never Assessed REASON FOR VISIT Controlled Med Refill 07/26 PLAN OF CARE VITAL SIGNS MEDICATIONS Medication Instructions Dosage Frequency Start Date End Date Duration Status Tramadol HCl 50 mg Orally 3 times a day 1 tablet as needed 8h March, Active RESULTS No Results PROCEDURES No Known procedures INSTRUCTIONS MEDICATIONS ADMINISTERED No Known Medications MEDICAL (GENERAL) HISTORY Type Description Date Medical History hypertension Medical History hyperlipidemia Medical History diabetes type II Medical History COPD Medical History asthma Surgical History hysterectomy Surgical History arthritis surgery Hospitalization History surgeries
--- OUTSIDE RECORDS SUMMARY | 2018-11-26 15:43 | XMS REPORT ---
Author Author KING FISHMAN [facility] Address [address] [place] [address] Care Team Providers Care Housing And Residence Life Director Name Role Phone KING FISHMAN Unavailable PROBLEMS Type Condition ICD9-CM Code COJ21-CZ Code Onset Dates Condition Status SNOMED Code Problem Lumbago with sciatica, left side M54.42 Active 197311245 Problem Other chronic pain G89.29 Active 29298522 Problem Lumbago with sciatica, right side M54.41 Active [id number] Problem Iron deficiency anemia due to chronic blood loss D50.0 Active 104343422 Problem Seizures R56.9 Active 08040717 Problem Chronic obstructive pulmonary disease, unspecified COPD type J44.9 Active 44664152 Problem Pain in right ankle and joints of right foot M25.571 Active 15532989309424 Problem DM 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 Active 17824190 Problem Cigarette nicotine dependence without complication F17.210 Active 69517464 Problem Mixed hyperlipidemia E78.2 Active 728274511 Problem Essential hypertension I10 Active 04745671 Problem Prediabetes R73.03 Active 545000313 Problem Acquired hypothyroidism E03.9 Active 081713986 Problem Reactive depression F32.9 Active 35714415 Problem Gastroesophageal reflux disease, esophagitis presence not specified K21.9 Active 398069929 ALLERGIES Substance Reaction Event Type Date Status Penicillin G Potassium anaphylaxis Drug Allergy Jun, Active Codeine Sulfate anaphylaxis Drug Allergy Jun, Active Aspirin hives Drug Allergy Jun, Active Peanut hives Non Drug Allergy Jun, Active ENCOUNTERS Encounter Location Date Diagnosis [facility] [place] [address] [facility] [id number] [place] [address] Oct, [facility] [place] [address] [facility] [id number] [place] [address] Jul, [facility] [place] [address] [address] Jul, Onychomycosis B35.1 ; Onychocryptosis L60.0 and DM 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 [place] [address] [address]- [address] Jun, Pain in thoracic spine M54.6 [place] [address] [address]- [address] Jun, Iron deficiency anemia due to chronic blood loss D50.0 and Hematochezia K92.[address] [address] Jun, Gastroenteritis K52.9 and Abnormal RBC indices R71.8 [place] [address] [address]- [address] Jun, [place] [address] [address]- 9[address] Jun, Chest congestion R09.89 and Seizures R56.9 [place] [address] [address]- 1266 May, Pain in thoracic spine M54.6 [place] [address] [address]- 3[address] May, [place] [address] [address]- 0700 May, [place] [address] [address]- 3729 May, [place] [address] [address]- 3466 May, Acute non-recurrent frontal sinusitis J01.10 and Dermatitis L30.9 [place] [address] [address]- 1080 May, [place] [address] [address]- 4571 May, Pain in thoracic spine M54.6 [facility], [place] [address] [place] [id number] [place] [address] 19326- 3747 May, [facility] [place] [address] [place] [id number] [place] [address] 82186- 8863 May, Acute nasopharyngitis J00 [facility] [place] [address] [place] [id number] [place] [address] 56261- 5726 May, [facility] [place] [address] [place] [id number] [place] [address] 05503- 0259 May, [facility] [place] [id number] [place] [address] 47008- 3192 Apr, [facility] [place] [address] [place] [id number] [place] [address] 77394- 9857 Apr, [facility] [place] [address] [id number] [place] [address] 25412- 1665 Apr, [facility] [place] [id number] [place] [address] 63826- 8680 Apr, [facility] [place] [id number] [place] [address] 84783- 1043 Apr, Pain in right ankle and joints of right foot M25.571 [facility] [place] [address] [place] [id number] [place] [address] 35027- 0044 Apr, [facility] [place] [id number] [place] [address] 18315- 3674 Apr, Bronchitis J40 ; Pain in right ankle and joints of right foot M25.571 ; Other chronic pain G89.29 ; Prediabetes R73.03 ; Chronic obstructive pulmonary disease, unspecified COPD type J44.9 and Cigarette nicotine dependence without complication F17.210 [facility] [id number] [address] 13 Apr, 2018 Seasonal allergic rhinitis, unspecified trigger J30.2 [place] [address] [place] [id number] [place] [address] 33116- 3455 08 Apr, 2018 Onychomycosis B35.1 ; Onychocryptosis L60.0 and DM 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 [place] [address] [place] [id number] [place] [address] 72385- 0603 Apr, Reactive depression F32.9 ; Thoracic myofascial strain, initial encounter S29.019A and Leg cramps R25.2 [place] [address] [place] [id number] [place] [address] 96793- 7395 March, [place] [address] 16360- 0799 March, Type 2 diabetes mellitus with hyperglycemia E11.65 [place] [address] 39364- 0077 March, Reactive depression F32.9 [place] [address] 37037- 5483 March, Pain in thoracic spine M54.6 and Other chronic pain G89.29 [place] [address] 50986- 9498 Feb, [place] [address] [place] [id number] [place] [address] 62565- 6011 Jan, Reactive depression F32.9 ; Essential hypertension I10 ; Gastroesophageal reflux disease, esophagitis presence not specified K21.9 ; Lumbago with sciatica, left side M54.42 and Lumbago with sciatica, right side M54.41 [place] [address] [place] [id number] [place] [address] 11651- 7818 Jan, Reactive depression F32.9 and Pharyngoesophageal dysphagia R13.14 [place] [address] [place] [id number] [place] [address] 89228- 9643 Jan, [place] [address] 35656- 2896 Jan, Encounter for immunization Z23 [place] [address] [place] [id number] [place] [address] 68296- 6942 Jan, Onychomycosis B35.1 and DM 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 [facility] [place] [address] [address]- 9463 Jan, [place] [address] 39229- 5185 Jan, Prediabetes R73.03 [place] [address] 61219- 5878 Dec, [place] [address] 43836- 6731 Dec, Essential hypertension I10 ; Mixed hyperlipidemia E78.2 ; Acquired hypothyroidism E03.9 ; Reactive depression F32.9 and Prediabetes R73.03 [place] [address] 04886- 8702 Dec, [place] [address] 76896- 7345 Dec, [place] [address] 26989- 1017 Dec, DM 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 [facility] [address] [id number] [place] [address] 37160 -5518 Dec, Bruise T14.8XXA ; Type 2 diabetes mellitus with hyperglycemia E11.65 and intermediate current use of insulin Z79.4 [place] [address] [place] [id number] [place] [address] 24201- 1746 Oct, [place] [address] [address]- 1961 March, Onychomycosis B35.1 and DM 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 [place] [address] 75788- 4041 Jun, [facility] [address] [id number] [place] [address]- 8603 Jun, [facility] [address] [id number] [place] [address]- 3004 Jun, COPD with acute exacerbation 491.21 [facility] [address] [id number] [place] [address]- 9561 Apr, [facility] [address] [id number] [place] [address]- 7183 Feb, [facility] [address] [id number] [place] [address]- 6107 Feb, [facility] [address] [id number] [place] [address]- 2490 Jan, [facility] [address] [id number] [place] [address]- 7602 Jan, [facility] [address] [id number] [place] [address]- 1090 Jan, [facility] [address] [id number] [place] [address]- 6561 Jan, [facility] [address] [facility] [id number] [place] [address]- 4938 Jan, [facility] [address] [id number] [place] [address]- 2716 Jan, [facility] [address] [id number] [place] [address]- 2914 Jan, [facility] [place] [facility] [address] [id number] [place] [address]- 2808 Jan, [facility] [address] [id number] [place] [address]- 0855 Jan, [facility] [address] [id number] [place] [address]- 8155 Jan, [facility] [place] [facility] [address] [id number] [place] [address]- 6184 19 Jan, 2015 [facility] [place] [facility] [address] [id number] [place] [address]- 6572 18 Jan, 2014 [facility] [place] [facility] [address] [id number] [place] [address]- 4789 18 Jan, 2015 [facility] [place] [facility] [address] [id number] [place] [address]- 7053 16 Jan, 2014 [facility] [place] [facility] [address] [id number] [place] [address]- 8322 16 Jan, 2014 [facility] [place] [facility] [address] [id number] [place] [address]- 7209 16 Jan, 2014 [facility] [place] [facility] [address] [id number] [place] [address]- 1080 16 Jan, 2014 [facility] [place] [facility] [address] [id number] [place] [address]- 1341 15 Jan, 2015 [facility] [place] [facility] [address] [id number] [place] [address]- 5478 13 Jan, 2015 [facility] [place] [facility] [address] [id number] [place] [address]- 0907 13 Jan, 2015 [facility] [place] [facility] [address] [id number] [place] [address]- 4820 13 Jan, 2015 [facility] [place] [facility] [address] [id number] [place] [address]- 5602 13 Jan, 2015 [facility] [place] [facility] [address] [id number] [place] [address]- 2979 12 Jan, 2015 [facility] [place] [facility] [address] [id number] [place] [address]- 2451 04 Jan, 2015 [facility] [place] [facility] [address] [id number] [place] [address]- 7961 04 Jan, 2015 [facility] [place] [facility] [address] [id number] [place] [address]- 0449 Dec, 2014 [facility] [place] [facility] [address] [id number] [place] [address]- 3896 Dec, 2014 [facility] [place] [facility] [address] [id number] [place] [address]- 4216 Dec, 2014 [facility] [place] [facility] [address] [facility] [id number] [place] [address]- 5726 Dec, 2014 [facility] [place] [facility] [address] [id number] [place] [address]- 6296 Dec, 2014 [facility] [place] [facility] [address] [id number] [place] [address]- 3298 Dec, 2014 [facility] [place] [facility] [address] [facility] [id number] [place] [address]- 0909 Dec, 2014 [facility] [place] [facility] [address] [place] [id number] [place] [address]- 1862 Dec, 2014 [facility] [place] [facility] [address] [facility] [id number] [place] [address]- 3621 Dec, [facility] [place] [facility] [address] [place] [id number] [place] [address]- 8210 Dec, [facility] [place] [facility] [address] [facility] [id number] [place] [address]- 1507 16 Dec, 2014 [facility] [place] [facility] [address] [facility] [id number] [place] [address]- 6071 Dec, 2014 [facility] [place] [facility] [address] [facility] [id number] [place] [address]- 3712 Nov, [facility] [place] [facility] [address] [facility] [id number] [place] [address]- 8466 Nov, [facility] [place] [facility] [address] [facility] [id number] [place] [address]- 0076 Nov, [facility] [place] [facility] [address] [facility] [id number] [place] [address]- 3184 Nov, [facility] [place] [facility] [address] [id number] [place] [address]- 3014 Nov, [facility] [place] [facility] [address] [id number] [place] [address]- 0720 Nov, [facility] [place] [facility] [address] [id number] [place] [address]- 3574 Nov, [facility] [place] [facility] [address] [id number] [place] [address]- 4552 Nov, [facility] [place] [facility] [address] [id number] [place] [address]- 5449 Nov, [facility] [place] [facility] [address] [id number] [place] [address]- 3865 Nov, [facility] [place] [facility] [address] [id number] [place] [address]- 5365 Nov, [facility] [place] [facility] [address] [id number] [place] [address]- 5364 Nov, [facility] [place] [facility] [address] [id number] [place] [address]- 8495 Oct, [facility] [place] [facility] [address] [id number] [place] [address]- 0874 Oct, [facility] [place] [facility] [address] [id number] [place] [address]- 1304 Oct, [facility] [place] [facility] [address] [id number] [place] [address]- 6638 Oct, [facility] [place] [facility] [address] [id number] [place] [address]- 2775 Oct, [facility] [place] [facility] [address] [id number] [place] [address]- 7433 Oct, [facility] [place] [facility] [address] [id number] [place] [address]- 7508 Oct, [facility] [place] [facility] [address] [id number] [place] [address]- 7710 23 Oct, 2014 [facility] [place] [facility] [address] [id number] [place] [address]- 0226 17 Oct, 2014 [facility] [place] [facility] [address] [id number] [place] [address]- 5357 17 Oct, 2014 [facility] [place] [facility] [address] [id number] [place] [address]- 1631 16 Oct, 2014 [facility] [place] [facility] [address] [id number] [place] [address]- 6597 16 Oct, 2014 [facility] [place] [facility] [address] [id number] [place] [address]- 2784 15 Oct, 2014 [facility] [place] [facility] [address] [id number] [place] [address]- 4994 Oct, [facility] [place] [facility] [address] [id number] [place] [address]- 0280 Oct, [facility] [place] [facility] [address] [id number] [place] [address]- 8971 Sep, [facility] [place] [facility] [address] [id number] [place] [address]- 9771 Sep, [facility] [place] [facility] [address] [id number] [place] [address]- 7325 Sep, [facility] [place] [facility] [address] [id number] [place] [address]- 2154 Sep, [facility] [place] [facility] [address] [id number] [place] [address]- 5544 Aug, [facility] [place] [facility] [address] [id number] [place] [address]- 3557 Aug, [facility] [place] [facility] [address] [id number] [place] [address]- 7195 Aug, [facility] [place] [facility] [address] [id number] [place] [address]- 0950 Aug, [facility] [place] [facility] [address] [id number] [place] [address]- 3947 Aug, [facility] [place] [facility] [address] [id number] [place] [address]- 5458 Aug, [facility] [place] [facility] [address] [id number] [place] [address]- 2560 29 Jul, 2014 [facility] [place] [facility] [address] [id number] [place] [address]- 4612 29 Jul, 2014 [facility] [place] [facility] [address] [id number] [place] [address]- 6858 15 Jul, 2014 [facility] [place] [facility] [address] [id number] [place] [address]- 5428 15 Jul, 2014 [facility] [place] [facility] [address] [id number] [place] [address]- 2881 08 Jul, 2014 [facility] [place] [facility] [address] [id number] [place] [address]- 3380 08 Jul, 2014 [facility] [place] [facility] [address] [id number] [place] [address]- 0767 Jun, [facility] [place] [facility] [address] [id number] [place] [address]- 1676 Jun, [facility] [place] [facility] [address] [id number] [place] [address]- 2867 Jun, [facility] [place] [facility] [address] [id number] [place] [address]- 4519 Jun, [facility] [place] [facility] [address] [id number] [place] [address]- 6621 Jun, [facility] [place] [facility] [address] [id number] [place] [address]- 3380 Jun, [facility] [place] [facility] [address] [id number] [place] [address]- 7046 Jun, [facility] [place] [facility] [address] [id number] [place] [address]- 1726 May, [facility] [place] [facility] [address] [id number] [place] [address]- 4093 May, [facility] [place] [facility] [address] [id number] [place] [address]- 4213 May, [facility] [place] [facility] [address] [id number] [place] [address]- 1736 May, [facility] [place] [facility] [address] [id number] [place] [address]- 2167 May, [facility] [place] [facility] [address] [id number] [place] [address]- 1582 May, [facility] [place] [facility] [address] [id number] [place] [address]- 1928 May, [facility] [place] [facility] [address] [id number] [place] [address]- 2705 May, [facility] [place] [facility] [address] [id number] [place] [address]- 4224 May, [facility] [place] [facility] [address] [id number] [place] [address]- 2909 May, [facility] [place] [facility] [address] [id number] [place] [address]- 8788 May, [facility] [place] [facility] [address] [id number] [place] [address]- 6617 May, [facility] [place] [facility] [address] [id number] [place] [address]- 7504 Apr, [facility] [place] [facility] [address] [id number] [place] [address]- 9473 Apr, [facility] [place] [facility] [address] [id number] [place] [address]- 3954 Apr, [facility] [place] [facility] [address] [id number] [place] [address]- 4471 Apr, [facility] [place] [facility] [address] [id number] [place] [address]- 8420 Apr, [facility] [address] [id number] [place] [address]- 7665 Apr, [facility] [place] [facility] [address] [id number] [place] [address]- 5149 Apr, [facility] [place] [facility] [address] [id number] [place] [address]- 8912 Apr, [facility] [place] [facility] [address] [id number] [place] [address]- 1721 Apr, [facility] [place] [facility] [address] [id number] [place] [address]- 2209 Apr, [facility] [place] [facility] [address] [id number] [place] [address]- 9985 March, [facility] [place] [facility] [address] [id number] [place] [address]- 8930 March, [facility] [place] [facility] [address] [id number] [place] [address]- 3566 March, [facility] [place] [facility] [address] [id number] [place] [address]- 1498 March, [facility] [address] [id number] [place] [address]- 5266 March, [facility] [place] [facility] [address] [id number] [place] [address]- 0480 March, [facility] [place] [facility] [address] [id number] [place] [address] Feb, [facility] [place] [facility] [address] [id number] [place] [address] Feb, [facility] [place] [facility] [address] [id number] [place] [address] Feb, [facility] [place] [facility] [address] [id number] [place] [address] Feb, [facility] [place] [facility] [address] [id number] [place] [address] Feb, [facility] [place] [facility] [address] [id number] [place] [address] Feb, [facility] [place] [facility] [address] [id number] [place] [address] Feb, [facility] [place] [facility] [address] [id number] [place] [address] Feb, [facility] [place] [facility] [address] [id number] [place] [address] Feb, [facility] [place] [facility] [address] [id number] [place] [address] Feb, [facility] [place] [facility] [address] [id number] [place] [address] Jan, [facility] [place] [facility] [address] [id number] [place] [address] Jan, [facility] [place] [facility] [address] [id number] [place] [address] Jan, [facility] [place] [facility] [address] [id number] [place] [address] Jan, [facility] [place] [facility] [address] [id number] [place] [address] Jan, [facility] [place] [facility] [address] [id number] [place] [address] Jan, [facility] [place] [facility] [address] [id number] [place] [address] Jan, [facility] [place] [facility] [address] [id number] [place] [address] Jan, [facility] [place] [facility] [address] [id number] [place] [address] Dec, [facility] [place] [facility] [address] [id number] [place] [address] Dec, [facility] [place] [facility] [address] [id number] [place] [address] Dec, [facility] [place] [facility] [address] [id number] [place] [address] Dec, [facility] [place] [facility] [address] [id number] [place] [address] Dec, [facility] [place] [facility] [address] [id number] [place] [address] Dec, [facility] [place] [facility] [address] [id number] [place] [address]- [address] Dec, [facility] [place] [facility] [address] [id number] [place] [address] Dec, [facility] [place] [facility] [address] [id number] [place] [address] Nov, [facility] [place] [facility] [address] [id number] [place] [address] Nov, [facility] [place] [facility] [address] [id number] [place] [address] Nov, [facility] [place] [facility] [address] [id number] [place] [address] Nov, [facility] [place] [facility] [address] [id number] [place] [address] Nov, [facility] [place] [facility] [address] [id number] [place] [address] Nov, [facility] [place] [facility] [address] [id number] [place] [address] Nov, [facility] [place] [facility] [address] [id number] [place] [address] Nov, [facility] [place] [facility] [address] [id number] [place] [address] Nov, [facility] [address] [id number] [place] [address] Nov, [facility] [place] [facility] [address] [id number] [place] [address] Nov, [facility] [place] [facility] [address] [id number] [place] [address] Oct, [facility] [place] [facility] [address] [id number] [place] [address] Oct, [facility] [place] [facility] [address] [id number] [place] Oct, [facility] [place] [facility] [address] [id number] [place] [address] Oct, [facility] [place] [facility] [address] [facility] [id number] [place] [address] Sep, [facility] [place] [facility] [address] [id number] [place] [address] Sep, [facility] [place] [facility] [address] [id number] [place] [address] Sep, [facility] [place] [facility] [address] [facility] [id number] [place] [address] Sep, [facility] [place] [facility] [address] [id number] [place] [address] Aug, [facility] [place] [facility] [address] [id number] [place] [address] Aug, [facility] [place] [facility] [address] [id number] [place] [address] Aug, [facility] [place] [facility] [address] [id number] [place] [address] Aug, [facility] [place] [facility] [address] [facility] [id number] [place] [address] Aug, [facility] [place] [facility] [address] [id number] [place] [address] Aug, 2013 [facility] [address] [id number] [place] [address] Aug, [facility] [place] [facility] [address] [id number] [place] [address]- [address] Aug, [facility] [place] [facility] [address] [id number] [place] [address] 28 Jul, 2012 [facility] [place] [facility] [address] [id number] [place] [address] 27 Sep, 2012 [facility] [place] [facility] [address] [id number] [place] [address] 9574 26 Jul, 2012 [facility] [place] [facility] [address] [id number] [place] [address] 1809 24 Jul, 2012 [facility] [place] [facility] [address] [id number] [place] [address]- 0693 24 Jul, 2012 [facility] [place] [facility] [address] [id number] [place] [address]- 7581 23 Jul, 2012 [facility] [place] [facility] [address] [id number] [place] [address]- 9434 19 Jul, 2012 [facility] [place] [facility] [address] [id number] [place] [address]- 7610 18 Sep, 2012 [facility] [place] [facility] [address] [id number] [place] [address] 4681 17 Sep, 2012 [facility] [place] [facility] [address] [id number] [place] [address]- 2544 16 Sep, 2012 [facility] [place] [facility] [address] [id number] [place] [address] 2543 13 Sep, 2012 [facility] [place] [facility] [address] [id number] [place] [address]- 2549 13 Sep, 2012 [facility] [place] [facility] [address] [id number] [place] [address]- 6692 12 Sep, 2012 [facility] [place] [facility] [address] [id number] [place] [address]- 2546 Jul, [facility] [place] [facility] [address] [id number] [place] [address]- 1048 Jul, [facility] [place] [facility] [address] [id number] [place] [address]- 2546 Jun, [facility] [place] [facility] [address] [id number] [place] [address]- 6966 Jun, [facility] [place] [facility] [address] [id number] [place] [address]- 2546 Jun, [facility] [place] [facility] [address] [id number] [place] [address]- 8245 May, [facility] [place] [facility] [address] [id number] [place] [address]- 5120 May, [facility] [place] [facility] [address] [id number] [place] [address]- 3297 May, [facility] [place] [facility] [address] [id number] [place] [address]- 9758 May, [facility] [place] [facility] [address] [id number] [place] [address]- 1544 Apr, [facility] [place] [facility] [address] [id number] [place] [address]- 9172 Apr, [facility] [place] [facility] [address] [id number] [place] [address]- 1159 Apr, [facility] [place] [facility] [address] [id number] [place] [address]- 2541 Apr, [facility] [place] [facility] [address] [id number] [place] [address]- 5466 March, [facility] [place] [facility] [address] [id number] [place] [address]- 2546 March, [facility] [place] [facility] [address] [id number] [place] [address]- 0863 March, [facility] [address] [id number] [place] [address]- 8210 Feb, [facility] [place] [facility] [address] [id number] [place] [address]- 4737 Feb, [facility] [place] [facility] [address] [address] [facility] [id number] [place] [address] Jan, [facility] [place] [facility] [address] [id number] [place] [address]- 1709 Jan, [facility] [place] [facility] [address] [id number] [place] [address]- 5800 Jan, [facility] [place] [facility] [address] [facility] [id number] [place] [address]- 9394 Jan, [facility] [place] [facility] [id number] [place] [address] 9627 Jan, [facility] [place] [facility] [address] [facility] [id number] [place] [address]- 1763 Dec, [facility] [place] [facility] [address] [id number] [place] [address]- 1271 Dec, [facility] [place] [facility] [address] [facility] [id number] [place] [address]- 5245 Dec, [facility] [place] [facility] [address] [id number] [place] [address]- 0748 Dec, [facility] [place] [facility] [address] [facility] [id number] [place] [address]- 1462 18 Dec, 2012 [facility] [place] [facility] [address] [facility] [id number] [place] [address]- 6678 06 Dec, 2012 [facility] [place] [facility] [address] [facility] [id number] [place] [address]- 9211 04 Dec, 2012 [facility] [place] [facility] [address] [facility] [id number] [place] [address]- 1798 Dec, [facility] [place] [facility] [address] [id number] [place] [address]- 3366 Nov, [facility] [address] [id number] [place] [address]- 5448 Nov, [facility] [place] [facility] [address] [id number] [place] [address]- 2546 Nov, [facility] [address] [id number] [place] [address]- 8526 Nov, [facility] [place] [facility] [address] [id number] [place] [address]- 5156 Nov, [facility] [address] [id number] [place] [address]- 0251 Nov, [facility] [place] [facility] [address] [id number] [place] [address]- 8291 Nov, [facility] [address] [id number] [place] [address]- 8110 Oct, [facility] [address] [id number] [place] [address]- 3786 Oct, [facility] [address] [id number] [place] [address]- 4466 Oct, [facility] [address] [id number] [place] [address]- 3679 Oct, [facility] [place] [facility] [address] [id number] [place] [address]- 3780 Oct, [facility] [place] [facility] [address] [id number] [place] [address]- 1696 Oct, [facility] [place] [facility] [address] [id number] [place] [address]- 9216 Oct, [facility] [place] [facility] [address] [id number] [place] [address]- 2886 Oct, [facility] [place] [facility] [address] [id number] [place] [address]- 3835 Sep, [facility] [place] [facility] [address] [id number] [place] [address]- 7495 Sep, [facility] [place] [facility] [address] [id number] [place] [address]- 3534 Sep, [facility] [place] [facility] [address] [id number] [place] [address]- 7326 Sep, [facility] [place] [facility] [address] [id number] [place] [address]- 6292 Sep, [facility] [place] [facility] [address] [id number] [place] [address]- 2119 Sep, [facility] [place] [facility] [address] [id number] [place] [address]- 6036 Sep, [facility] [place] [facility] [address] [id number] [place] [address]- 9320 Sep, [facility] [place] [facility] [address] [id number] [place] [address]- 6174 Sep, [facility] [place] [facility] [address] [id number] [place] [address]- 5300 Sep, [facility] [place] [facility] [address] [id number] [place] [address]- 1233 Sep, [facility] [place] [facility] [address] [id number] [place] [address]- 6246 Sep, [facility] [place] [facility] [address] [id number] [place] [address]- 5519 Sep, [facility] [place] [facility] [address] [id number] [place] [address]- 4537 Sep, [facility] [place] [facility] [address] [id number] [place] [address]- 7625 Sep, [facility] [place] [facility] [address] [id number] [place] [address]- 7258 Sep, [facility] [place] [facility] [address] [id number] [place] [address]- 0523 05 Sep, 2012 [facility] [place] [facility] [address] [id number] [place] [address]- 7578 02 Sep, 2012 [facility] [place] [facility] [address] [id number] [place] 6598 Sep, [facility] [place] [facility] [address] [id number] [place] [address]- 3502 Sep, [facility] [place] [facility] [address] [id number] [place] [address]- 5813 31 Aug, 2012 [facility] [place] [facility] [address] [id number] [place] [address]- 0395 31 Aug, 2012 [facility] [place] [facility] [address] [id number] [place] [address]- 9054 29 Aug, 2012 [facility] [place] [facility] [address] [id number] [place] [address]- 0842 Aug, [facility] [place] [facility] [address] [id number] [place] [address]- 5746 27 Aug, 2012 [facility] [place] [facility] [address] [facility] [id number] [place] [address]- 6829 18 Aug, 2012 [facility] [place] [facility] [address] [facility] [id number] [place] [address]- 5330 18 Aug, 2012 [facility] [place] [facility] [address] [facility] [id number] [place] [address]- 4529 17 Aug, 2012 [facility] [place] [facility] [address] [id number] [place] [address]- 5375 16 Aug, 2012 [facility] [place] [facility] [address] [id number] [place] [address]- 3964 16 Aug, 2012 [facility] [place] [facility] [address] [facility] [id number] [place] [address]- 7447 15 Aug, 2012 [facility] [place] [facility] [address] [facility] [id number] [place] 6539 09 Aug, 2012 [facility] [place] [facility] [address] [id number] [place] [address]- 7996 Aug, [facility] [place] [facility] [address] [id number] [place] [address]- 1785 Aug, [facility] [place] [facility] [address] [id number] [place] [address]- 6409 Aug, [facility] [place] [facility] [address] [id number] [place] [address]- 4528 14 Jul, 2012 [facility] [place] [facility] [address] [id number] [place] [address]- 1334 Jul, [facility] [place] [facility] [address] [id number] [place] [address]- 9733 Jun, [facility] [place] [facility] [address] [id number] [place] [address]- 0728 Jun, [facility] [place] [facility] [address] [id number] [place] [address]- 5505 May, [facility] [place] [facility] [address] [id number] [place] [address]- 3237 May, [facility] [place] [facility] [address] [id number] [place] [address]- 2834 May, [facility] [place] [facility] [address] [id number] [place] [address]- 3736 May, [facility] [place] [facility] [address] [id number] [place] [address]- 1997 May, [facility] [place] [facility] [address] [id number] [place] [address]- 3431 May, [facility] [place] [facility] [address] [id number] [place] [address]- 2843 Apr, [facility] [place] [facility] [address] [id number] [place] [address]- 2322 15 Apr, 2012 [facility] [place] [facility] [address] [id number] [place] [address]- 7293 March, [facility] [address] [id number] [place] [address]- 9927 March, [facility] [place] [facility] [address] [id number] [place] [address] March, [facility] [address] [id number] [place] [address]- 8316 March, [facility] [place] [facility] [address] [id number] [place] [address]- 0758 March, [facility] [address] [id number] [place] [address]- 5687 March, [facility] [address] [id number] [place] [address]- 4762 Feb, [facility] [place] [facility] [address] [id number] [place] [address]- 4182 Feb, [facility] [place] [facility] [address] [id number] [place] [address]- 3217 Feb, [facility] [address] [id number] [place] [address]- 8840 Feb, [facility] [place] [facility] [address] [id number] [place] [address]- 2069 Feb, [facility] [place] [facility] [address] [id number] [place] [address]- 6329 Feb, [facility] [place] [facility] [address] [id number] [place] [address]- 8706 10 Feb, 2012 [facility] [place] [facility] [address] [id number] [place] [address]- 0246 09 Feb, 2012 [facility] [place] [facility] [address] [id number] [place] [address]- 6721 04 Feb, 2012 [facility] [place] [facility] [address] [id number] [place] [address]- 8514 30 Jan, 2012 [facility] [place] [facility] [address] [id number] [place] [address]- 3923 27 Jan, 2012 [facility] [address] [id number] [place] [address]- 9786 26 Jan, 2012 [facility] [address] [id number] [place] [address]- 7786 22 Jan, 2012 [facility] [address] [id number] [place] [address]- 1236 21 Jan, 2012 [facility] [address] [id number] [place] [address]- 5837 20 Jan, 2012 [facility] [address] [id number] [place] [address]- 0308 14 Jan, 2012 [facility] [address] [id number] [place] [address]- 5329 09 Jan, 2012 [facility] [address] [id number] [place] [address]- 0867 09 Jan, 2012 [facility] [address] [id number] [place] [address]- 7197 08 Jan, 2012 [facility] [address] [id number] [place] [address]- 1269 07 Jan, 2012 [facility] [address] [id number] [place] [address]- 6010 06 Jan, 2012 [facility] [place] [facility] [address] [id number] [place] [address]- 5106 Jan, [facility] [address] [id number] [place] [address]- 0062 Jan, [facility] [place] [facility] [address] [id number] [place] [address]- 4606 28 Dec, 2011 [facility] [address] [id number] [place] [address]- 1106 27 Dec, 2011 [facility] [address] [id number] [place] [address]- 0852 Dec, [facility] [address] [id number] [place] [address]- 9418 Dec, [facility] [place] [facility] [address] [id number] [place] [address]- 1136 16 Dec, 2011 [facility] [place] [facility] [address] [id number] [place] [address]- 5466 Dec, [facility] [place] [facility] [address] [id number] [place] [address]- 7853 Dec, [facility] [place] [facility] [address] [id number] [place] [address]- 0246 Dec, [facility] [place] [facility] [address] [id number] [place] [address]- 2647 Dec, [facility] [place] [facility] [address] [id number] [place] [address]- 2060 Nov, [facility] [place] [facility] [address] [id number] [place] [address]- 9659 Nov, [facility] [place] [facility] [address] [id number] [place] [address]- 6365 Nov, [facility] [place] [facility] [address] [id number] [place] [address]- 1284 Nov, [facility] [place] [facility] [address] [id number] [place] [address]- 3121 Oct, [facility] [place] [facility] [address] [id number] [place] [address]- 2691 Oct, [facility] [place] [facility] [address] [id number] [place] [address]- 1710 Oct, [facility] [place] [facility] [address] [id number] [place] [address]- 9365 Oct, [facility] [place] [facility] [address] [id number] [place] [address]- 7596 Oct, [facility] [place] [facility] [address] [id number] [place] [address]- 2211 Oct, [facility] [place] [facility] [address] [id number] [place] [address]- 8546 Oct, [facility] [place] [facility] [address] [id number] [place] [address]- 9185 Sep, [facility] [place] [facility] [address] [id number] [place] [address]- 6997 Sep, [facility] [place] [facility] [address] [id number] [place] [address]- 2240 Sep, [facility] [place] [facility] [address] [id number] [place] [address], [place] [address]- 9612 Sep, [facility] [place] [facility] [address] [id number] [place] [address]- 7596 Sep, [facility] [place] [facility] [address] [id number] [place] [address]- 5386 Sep, [facility] [place] [facility] [address] [id number] [place] [address]- 2816 Sep, [facility] [place] [facility] [address] [id number] [place] [address]- 2995 Sep, [facility] [place] [facility] [address] [id number] [place] [address]- 1914 Sep, [facility] [place] [facility] [address] [id number] [place] [address]- 4384 Aug, [facility] [place] [facility] [address] [id number] [place] [address]- 4129 Aug, [facility] [place] [facility] [address] [id number] [place] [address]- 5472 Aug, [facility] [place] [facility] [address] [id number] [place] [address]- 7979 May, [facility] [place] [facility] [address] [id number] [place] [address]- 5991 Nov, [facility] [address] [id number] [place] [address]- 8663 Oct, [facility] [place] [facility] [address] [id number] [place] [address]- 5676 Oct, [facility] [place] [facility] [address] [id number] [place] 3213 Oct, [facility] [place] [facility] [address] [id number] [place] [address]- 0786 Oct, [facility] [address] [id number] [place] 2152 Oct, [facility] [place] [facility] [address] [id number] [place] [address]- 5865 Sep, [facility] [place] [facility] [address] [id number] [place] [address]- 2216 Sep, [facility] [place] [facility] [address] [id number] [place] [address]- 1394 14 Jul, 2010 [facility] [place] [facility] [address] [id number] [place] [address]- 9941 Oct, [facility] [place] [facility] [address] [id number] [place] [address]- 3726 Oct, [facility] [place] [facility] [address] [id number] [place] [address]- 5661 Oct, [facility] [place] [facility] [address] [id number] [place] [address]- 6198 Oct, [facility] [place] [facility] [address] [id number] [place] [address]- 1533 Sep, [facility] [place] [facility] [address] [id number] [place] [address]- 0707 Sep, [facility] [place] [facility] [address] [facility] [id number] [place] [address]- 9263 Sep, [facility] [place] [facility] [address] [id number] [place] [address]- 5946 Sep, [facility] [place] [address] [facility] [id number] [place] [address] Sep, [facility] [place] [address] [facility] [id number] [place] [address] Jul, [place] [address] [facility] [id number] [place] [address] Apr, [place] [address] [facility] [address] [facility] [id number] [place] [address] Dec, IMMUNIZATIONS No Known Immunizations SOCIAL HISTORY Never Assessed REASON FOR VISIT Vomiting Pt states she has not been feeling well for about a month, today she started vomiting, ear pain, sore throat body aches JENNIFFER Christiansen PLAN OF CARE Activity Details Follow Up Will call after lab Reason: VITAL SIGNS Height 67 in 2018-07-13 Weight 197.5 lbs 2018-07-13 Temperature 97.6 degrees Fahrenheit 2018-07-13 Heart Rate 80 bpm 2018-07-13 Respiratory Rate 20 2018-07-13 BMI 30.93 kg/m2 2018-07-13 Blood pressure systolic 110 mmHg 2018-07-13 Blood pressure diastolic 62 mmHg 2018-07-13 MEDICATIONS Medication Instructions Dosage Frequency Start Date End Date Duration Status Atorvastatin Calcium 40 MG TAKE ONE TABLET BY MOUTH DAILY 90 Active Amlodipine Besylate 5 MG Orally Once a day 1 tablet 24h Active Oxygen 2 L/NC by inhalation route at bedtime Active Levothyroxine Sodium 50 MCG TAKE ONE TABLET BY MOUTH DAILY 90 Active Test strips Test Strips subcutaneously 2 times a day, accucheck christiano 1 test strip Dec, Active Gabapentin 300 MG TAKE TWO CAPSULES BY MOUTH THREE TIMES A DAY 90 Active Flonase 50 MCG/ACT Nasally twice a day 1 spray in each nostril 12h 13 Apr, 2018 30 day(s) Active Cyclobenzaprine HCl 10 mg Orally Three times a day 1 tablet as needed 8h 10 Active Naprosyn 500 mg Orally 2 times a day 1 tablet with food or milk as needed 12h 30 Active Protonix 40 MG Orally Once a day 1 tablet 24h 30 Active SudoGest 60 mg Orally every 6 hrs 1 tablet as needed 6h 24 May, 2018 07 days Not-Taking DiphenhydrAMINE HCl 25 MG Orally every 6 hrs, prn itching 1-2 tabs May Not-Taking Trazodone HCl 100 mg Orally Once a day 1 tablet at bedtime 24h Apr, 30 day(s) Active Metformin HCl 500 mg Orally Twice a day 1 tablet with meals 12h 30 days Active Prozac 40 mg Orally Once a day 1 capsule 24h 30 Active ProAir HFA 90 mcg/actuation inhale 2 puffs by Inhalation route every 4 hours as needed PRN shortness of breath/cough March, Active Tramadol HCl 50 mg Orally 3 times a day 1 tablet as needed 8h March, Active Lisinopril 5 MG Orally Once a day 1 tablet 24h Active Gabapentin 600 MG Orally Once a day 1 capsule before bedtime 24h Active Chantix 1 MG Orally Twice a day 1/2 tablet once daily for 3 days then 1/2 tab 2 times daily x 3 days then one tab 12h May, Active RESULTS Name Result Date Reference Range IRON, TIBC, FERRITIN PANEL 2018-07-13 IRON, TOTAL 35 45-160 IRON BINDING CAPACITY 459 250-450 % SATURATION 8 11-50 FERRITIN 24 10-232 PROCEDURES Procedure Date Ordered Result Body Site LAB NOT BILLED BY [facility] Jul 13, 2018 INSTRUCTIONS MEDICATIONS ADMINISTERED No Known Medications MEDICAL (GENERAL) HISTORY Type Description Date Medical History hypertension Medical History hyperlipidemia Medical History diabetes type II Medical History COPD Medical History asthma Surgical History hysterectomy Surgical History arthritis surgery Hospitalization History surgeries
--- OUTSIDE RECORDS SUMMARY | 2018-11-26 15:44 | XMS REPORT ---
Author Author KING FISHMAN Organization [facility] Address [address] [place] [address] Care Team Providers Care Community Services Manager Name Role Phone KING FISHMAN Unavailable PROBLEMS Type Condition ICD9-CM Code QVC95-KS Code Onset Dates Condition Status SNOMED Code Problem Lumbago with sciatica, left side M54.42 Active 736725190 Problem Other chronic pain G89.29 Active 42071718 Problem Lumbago with sciatica, right side M54.41 Active [id number] Problem Iron deficiency anemia due to chronic blood loss D50.0 Active 249754896 Problem Seizures R56.9 Active 23820335 Problem Chronic obstructive pulmonary disease, unspecified COPD type J44.9 Active 70866001 Problem Pain in right ankle and joints of right foot M25.571 Active 32756439864561 Problem DM 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 Active 29627926 Problem Cigarette nicotine dependence without complication F17.210 Active 96910385 Problem Mixed hyperlipidemia E78.2 Active 675697939 Problem Essential hypertension I10 Active 14185169 Problem Prediabetes R73.03 Active 123246225 Problem Acquired hypothyroidism E03.9 Active 865010041 Problem Reactive depression F32.9 Active 24465743 Problem Gastroesophageal reflux disease, esophagitis presence not specified K21.9 Active 366669980 ALLERGIES No Information ENCOUNTERS Encounter Location Date Diagnosis [facility] [address] [facility] [id number] [address] Oct, [facility] [id number] [place] [address]17- [address] Jul, [facility] [address] [id number] [address] Jul, Onychomycosis B35.1 ; Onychocryptosis L60.0 and DM 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 [facility] [address] [address] Jun, Pain in thoracic spine M54.6 [facility] [address] [address]- [address] Jun, Iron deficiency anemia due to chronic blood loss D50.0 and Hematochezia K92.1 [facility] [address] [address]- [address] Jun, Gastroenteritis K52.9 and Abnormal RBC indices R71.8 [facility] [address] [address]- [address] Jun, [place] [address] [address]- 11[address] Jun, Chest congestion R09.89 and Seizures R56.9 [facility] [address] [address]- [address] May, Pain in thoracic spine M54.6 [facility] [address] [address]- [address] May, [facility] [address] [address]- 1683 May, [facility] [address] [address]- 267[address] May, [facility] [address] [address] 2548 May, Acute non-recurrent frontal sinusitis J01.10 and Dermatitis L30.9 [facility] [address] [address]- 7210 May, [facility] [address] [address]- 2657 May, Pain in thoracic spine M54.6 [facility] [address] [address]- 9345 May, [facility] [address] [address] May, Acute nasopharyngitis J00 [facility] [id number] [place] [address] 13350- 4061 May, [facility] [id number] [place] [address] 56333- 1766 May, [facility] [id number] [place] [address] 30603- 7171 Apr, [facility] [id number] [place] [address] 91079- 5648 Apr, [facility] [id number] [place] [address] 57729- 8179 Apr, [facility] [id number] [place] [address] 65779- 2490 Apr, [facility] [id number] [place] [address] 53876- 4091 Apr, Pain in right ankle and joints of right foot M25.571 [facility] [id number] [place] [address] 82458- 5891 Apr, [facility] [address] [place] [address] 53575- 1559 18 Apr, 2018 Bronchitis J40 ; Pain in right ankle and joints of right foot M25.571 ; Other chronic pain G89.29 ; Prediabetes R73.03 ; Chronic obstructive pulmonary disease, unspecified COPD type J44.9 and Cigarette nicotine dependence without complication F17.210 [facility] [address] [place] [address] 64583 -9181 13 Apr, 2018 Seasonal allergic rhinitis, unspecified trigger J30.2 [facility] [address], [place] [address] 08 Apr, 2018 Onychomycosis B35.1 ; Onychocryptosis L60.0 and DM 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 [place] [id number] [place] [address] 41249- 2103 Apr, Reactive depression F32.9 ; Thoracic myofascial strain, initial encounter S29.019A and Leg cramps R25.2 [place] [address] [address]- 3834 March, [place] [address] 85918- 0187 March, Type 2 diabetes mellitus with hyperglycemia E11.65 [place] [address] 73761- 9190 March, Reactive depression F32.9 [place] [address] 02190- 4614 March, Pain in thoracic spine M54.6 and Other chronic pain G89.29 [place] [address] 12015- 2732 Feb, [place] [address] 71504- 7527 Jan, Reactive depression F32.9 ; Essential hypertension I10 ; Gastroesophageal reflux disease, esophagitis presence not specified K21.9 ; Lumbago with sciatica, left side M54.42 and Lumbago with sciatica, right side M54.41 [place] [id number] [place] [address] 15117- 1812 Jan, Reactive depression F32.9 and Pharyngoesophageal dysphagia R13.14 [place] [address] 77065- 2738 Jan, [place] [address] 46974- 1089 Jan, Encounter for immunization Z23 [address] [address]- [address] Jan, Onychomycosis B35.1 and DM 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 [facility] [id number] [place] [address] 24277- 2494 Jan, [facility] [id number] [place] [address] 25625- 4076 Jan, Prediabetes R73.03 [facility] [address] 71959- 2611 Dec, [facility] [address] 96189- 0370 Dec, Essential hypertension I10 ; Mixed hyperlipidemia E78.2 ; Acquired hypothyroidism E03.9 ; Reactive depression F32.9 and Prediabetes R73.03 [facility] [id number] [place] [address] 91521- 1704 Dec, [facility] [address] 00357- 5544 Dec, [facility] [id number] [place] [address] 03147- 4238 Dec, DM 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 [facility] [id number] [place] [address] 53549 -8161 Dec, Bruise T14.8XXA ; Type 2 diabetes mellitus with hyperglycemia E11.65 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 [facility] [id number] [place] [address] 90492- 1476 Oct, [facility] [id number] [place] [address] 52409- 3927 March, Onychomycosis B35.1 and DM 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 [facility] [id number] [place] [address] 27944- 4215 Jun, [facility] [id number] [place] [address] 89495- 1101 Jun, [facility] [address] [id number] [place] [address]- 3567 Jun, COPD with acute exacerbation 491.21 [facility] [address] [id number] [place] [address]- 9640 Apr, [facility] [address] [id number] [place] [address]- 7348 Feb, [facility] [place] [facility] [address] [id number] [place] [address]- 3731 Feb, [facility] [address] [id number] [place] [address]- 8583 Jan, [facility] [place] [facility] [address] [id number] [place] [address]- 2973 Jan, [facility] [place] [facility] [address] [id number] [place] [address]- 4781 Jan, [facility] [place] [facility] [address] [id number] [place] [address]- 0824 Jan, [facility] [place] [facility] [address] [id number] [place] [address]- 1672 Jan, [facility] [place] [facility] [address] [id number] [place] [address]- 2676 Jan, [facility] [place] [facility] [address] [id number], [place] [address]- 4777 Jan, [facility] [place] [facility] [address] [id number], [place] [address]- 5471 Jan, [facility] [place] [facility] [address] [id number] [place] [address]- 9382 Jan, [facility] [place] [facility] [address] [id number] [place] [address]- 0434 Jan, [facility] [place] [facility] [address] [id number] [place] [address]- 3638 Jan, [facility] [place] [facility] [address] [id number] [place] [address]- 0135 18 Jan, 2014 [facility] [place] [facility] [address] [id number] [place] [address]- 1529 18 Jan, 2015 [facility] [place] [facility] [address] [id number] [place] [address]- 8007 16 Jan, 2014 [facility] [place] [facility] [address] [id number] [place] [address]- 3938 16 Jan, 2014 [facility] [place] [facility] [address] [id number] [place] [address]- 1117 16 Jan, 2014 [facility] [place] [facility] [address] [id number] [place] [address]- 9756 16 Jan, 2014 [facility] [place] [facility] [address] [id number] [place] [address]- 6369 15 Jan, 2014 [facility] [place] [facility] [address] [id number] [place] [address]- 8510 13 Jan, 2014 [facility] [place] [facility] [address] [id number] [place] [address]- 4675 13 Jan, 2015 [facility] [place] [facility] [address] [id number] [place] [address]- 5649 13 Jan, 2014 [facility] [place] [facility] [address] [id number] [place] [address]- 1377 13 Jan, 2015 [facility] [place] [facility] [address] [id number] [place] [address]- 9990 12 Jan, 2015 [facility] [place] [facility] [address] [id number] [place] [address]- 2960 04 Jan, 2015 [facility] [place] [facility] [address] [id number] [place] [address]- 0993 04 Jan, 2015 [facility] [place] [facility] [address] [id number] [place] [address]- 2098 24 Dec, 2014 [facility] [place] [facility] [address] [id number] [place] 4285 24 Dec, 2014 [facility] [place] [facility] [address] [id number] [place] [address]- 2285 Dec, [facility] [place] [facility] [address] [id number] [place] [address]- 0376 Dec, [facility] [place] [facility] [address] [id number] [place] [address]- 2440 Dec, [facility] [place] [facility] [address] [id number] [place] [address]- 4735 Dec, 2014 [facility] [place] [facility] [address] [id number] [place] [address]- 4106 Dec, [facility] [place] [facility] [address] [id number] [place] [address]- 9296 Dec, [facility] [place] [facility] [address] [id number] [place] [address]- 8717 Dec, [facility] [place] [facility] [address] [id number] [place] [address]- 8446 Dec, [facility] [place] [facility] [address] [id number] [place] [address]- 8369 Dec, [facility] [place] [facility] [address] [id number] [place] [address]- 5126 Dec, [facility] [place] [facility] [address] [id number] [place] [address]- 6487 Nov, [facility] [place] [facility] [address] [id number] [place] [address]- 6457 Nov, [facility] [place] [facility] [address] [id number] [place] [address]- 8891 Nov, [facility] [place] [facility] [address] [id number] [place] [address]- 0519 Nov, [facility] [place] [facility] [address] [id number] [place] [address]- 3410 Nov, [facility] [place] [facility] [address] [id number] [place] [address]- 9137 Nov, [facility] [address] [id number] [place] [address]- 8372 Nov, [facility] [address] [id number] [place] [address]- 8787 Nov, [facility] [address] [id number] [place] [address]- 7549 Nov, [facility] [place] [facility] [address] [id number] [place] [address]- 2445 Nov, [facility] [address] [id number] [place] [address]- 4630 Nov, [facility] [address] [id number] [place] [address]- 8027 Nov, [facility] [address] [id number] [place] [address]- 9036 Oct, [facility] [address] [id number] [place] [address]- 0430 Oct, [facility] [address] [id number] [place] [address]- 9742 Oct, [facility] [address] [id number] [place] [address]- 0384 Oct, [facility] [place] [facility] [address] [id number] [place] [address]- 2730 Oct, [facility] [address] [id number] [place] [address]- 0554 Oct, [facility] [place] [facility] [address] [id number] [place] [address]- 8899 Oct, [facility] [place] [facility] [address] [id number] [place] [address]- 9862 Oct, [facility] [place] [facility] [address] [id number] [place] 5417 Oct, [facility] [place] [facility] [address] [id number] [place] [address]- 7539 17 Oct, 2014 [facility] [place] [facility] [address] [id number] [place] [address]- 2807 Oct, [facility] [place] [facility] [address] [id number] [place] [address]- 0626 16 Oct, 2014 [facility] [place] [facility] [address] [id number] [place] [address]- 6719 Oct, [facility] [place] [facility] [address] [id number] [place] [address]- 3314 Oct, [facility] [place] [facility] [address] [id number] [place] [address]- 6769 Oct, [facility] [place] [facility] [address] [id number] [place] [address]- 3955 Sep, [facility] [place] [facility] [address] [id number] [place] [address]- 0973 Sep, [facility] [place] [facility] [address] [id number] [place] [address]- 3492 Sep, [facility] [place] [facility] [address] [id number], [place] [address]- 4008 Sep, [facility] [place] [facility] [address] [id number], [place] [address]- 9962 Aug, [facility] [place] [facility] [address] [id number], [place] [address]- 8039 Aug, [facility] [place] [facility] [address] [id number] [place] [address]- 6816 Aug, [facility] [place] [facility] [address] [id number], [place] [address]- 7213 Aug, [facility] [place] [facility] [address] [id number] 8866 Aug, [facility] [place] [facility] [address] [id number], [place] [address]- 0103 Aug, [facility] [place] [facility] [address] [id number] [place] [address]- 0830 29 Jul, 2014 [facility] [place] [facility] [address] [id number] [place] [address]- 9546 29 Jul, 2014 [facility] [place] [facility] [address] [id number] [place] [address]- 5846 15 Jul, 2014 [facility] [place] [facility] [address] [id number] [place] [address]- 7455 15 Jul, 2014 [facility] [place] [facility] [address] [id number] [place] [address]- 6550 08 Jul, 2014 [facility] [place] [facility] [address] [id number] [place] [address]- 6746 Jul, [facility] [place] [facility] [address] [id number] [place] [address]- 2818 Jun, [facility] [place] [facility] [address] [id number] [place] [address]- 8986 Jun, [facility] [place] [facility] [address] [id number] [place] [address]- 0252 Jun, [facility] [place] [facility] [address] [id number] [place] [address]- 2644 Jun, [facility] [place] [facility] [address] [id number] [place] [address]- 9906 Jun, [facility] [place] [facility] [address] [id number], [place] [address]- 2059 Jun, [facility] [place] [facility] [address] [id number] [place] [address]- 4686 Jun, [facility] [place] [facility] [address] [id number] [place] [address]- 7631 May, [facility] [place] [facility] [address] [id number] [place] [address]- 0881 May, [facility] [place] [facility] [address] [id number] [place] [address]- 8792 May, 2013 [facility] [place] [facility] [address] [id number] [place] 9666 May, [facility] [place] [facility] [address] [id number] [place] [address]- 1476 May, 2013 [facility] [place] [facility] [address] [id number] [place] [address]- 6006 May, 2013 [facility] [place] [facility] [address] [id number] [place] [address]- 2488 May, 2013 [facility] [place] [facility] [address] [id number] [place] [address]- 0983 May, [facility] [place] [facility] [address] [id number] [place] [address]- 5282 May, [facility] [place] [facility] [address] [id number] [place] [address]- 6634 May, [facility] [place] [facility] [address] [id number] [place] [address]- 4875 May, [facility] [place] [facility] [address] [id number] [place] [address]- 4603 May, [facility] [place] [facility] [address] [id number] [place] [address]- 4235 Apr, [facility] [place] [facility] [address] [id number] [place] [address]- 9845 Apr, [facility] [place] [facility] [address] [id number] [place] [address]- 6036 Apr, [facility] [place] [facility] [address] [id number] [place] [address]- 6697 Apr, [facility] [place] [facility] [address] [id number] [place] [address]- 9286 Apr, [facility] [place] [facility] [address] [id number] [place] [address]- 8082 Apr, [facility] [place] [facility] [address] [id number] [place] [address]- 2041 Apr, [facility] [place] [facility] [address] [id number] [place] [address]- 2467 Apr, [facility] [place] [facility] [address] [id number] [place] [address]- 0861 Apr, [facility] [place] [facility] [address] [id number] [place] [address]- 3109 Apr, [facility] [place] [facility] [address] [id number] [place] [address]- 6490 March, [facility] [place] [facility] [address] [id number] [place] [address]- 6329 March, [facility] [place] [facility] [address] [id number] [place] [address]- 3852 March, [facility] [place] [facility] [address] [id number] [place] [address]- 9557 March, [facility] [place] [facility] [address] [id number] [place] [address]- 2977 March, [facility] [place] [facility] [address] [id number] [place] [address]- 5073 March, [facility] [place] [facility] [address] [id number] [place] [address]- 3254 Feb, [facility] [place] [facility] [address] [id number] [place] [address]- 4692 Feb, [facility] [place] [facility] [address] [id number] [place] [address]- 0649 Feb, [facility] [place] [facility] [address] [id number] [place] [address]- 4224 Feb, [facility] [place] [facility] [address] [id number] [place] [address]- 4455 Feb, [facility] [place] [facility] [address] [id number] [place] [address]- 0725 Feb, [facility] [place] [facility] [address] [id number] [place] 8414 Feb, [facility] [place] [facility] [address] [id number] [place] 6250 Feb, [facility] [place] [facility] [address] [id number] [place] [address]- 8617 Feb, [facility] [place] [facility] [address] [id number] [place] [address]- 3663 Feb, [facility] [place] [facility] [address] [id number] [place] [address] Jan, [facility] [place] [facility] [address] [id number] [place] [address] Jan, [facility] [place] [facility] [address] [id number] [place] [address] Jan, [facility] [place] [facility] [address] [id number] [place] [address] Jan, [facility] [place] [facility] [address] [id number] [place] [address] Jan, [facility] [place] [facility] [address] [facility] [id number] [place] [address] Jan, [facility] [place] [facility] [address] [id number] [place] [address] Jan, [facility] [place] [facility] [address] [id number] [place] [address] Jan, [facility] [place] [facility] [address] [id number] [place] [address] Dec, [facility] [place] [facility] [address] [id number] [place] [address] Dec, [facility] [place] [facility] [address] [id number] [place] [address] Dec, [facility] [place] [facility] [address] [id number] [place] [address] Dec, [facility] [place] [facility] [address] [id number] [place] [address] Dec, [facility] [place] [facility] [address] [id number] [place] [address] Dec, [facility] [place] [facility] [address] [id number] [place] [address]- [address] Dec, [facility] [place] [facility] [address] [id number] [place] [address]676 Dec, [facility] [place] [facility] [address] [id number] [place] [address] Nov, [facility] [place] [facility] [address] [id number] [place] [address] Nov, [facility] [place] [facility] [address] [id number] [place] [address] Nov, [facility] [place] [facility] [address] [id number] [place] [address]- [address] Nov, [facility] [place] [facility] [address] [id number] [place] [address] Nov, [facility] [place] [facility] [address] [id number], [place] [address] Nov, [facility] [place] [facility] [address] [id number], [place] [address] Nov, [facility] [place] [facility] [address] [id number] [place] [address] 4337 Nov, [facility] [place] [facility] [address] [id number] [place] [address] 0329 Nov, [facility] [place] [facility] [address] [id number] [place] [address] 7075 Nov, [facility] [place] [facility] [address] [id number] [place] [address] Nov, [facility] [address] [id number] [place] [address] Oct, [facility] [place] [facility] [address] [id number] [place] [address] Oct, [facility] [place] [facility] [address] [id number] [place] [address] 77[address] Oct, [facility] [place] [facility] [address] [id number] [place] [address] Oct, [facility] [place] [facility] [address] [id number] [place] [address] Sep, [facility] [place] [facility] [address] [id number] [place] [address] Sep, [facility] [place] [facility] [address] [id number] [place] [address]- 6[address] Sep, [facility] [place] [facility] [address] [id number] [place] [address] 18[address] Sep, [facility] [place] [facility] [address] [id number] [place] [address]- 1567 Aug, [facility] [place] [facility] [address] [facility] [id number] [place] [address]148 Aug, [facility] [place] [facility] [address] [id number] [place] [address]- 8289 Aug, [facility] [place] [facility] [address] [id number], [place] [address] Aug, [facility] [place] [facility] [address] [id number] [place] [address] Aug, [facility] [place] [facility] [address] [id number] [place] [address] 8688 Aug, [facility] [place] [facility] [address] [id number] [address] Aug, [facility] [place] [facility] [address] [id number] [place] [address] Aug, [facility] [place] [facility] [address] [id number] [place] [address] 28 Jul, 2012 [facility] [place] [facility] [address] [id number] [place] [address]- [address] 27 Jul, 2012 [facility] [place] [facility] [address] [id number] [place] [address]- [address] 26 Jul, 2012 [facility] [address] [id number] [place] [address] 24 Jul, 2012 [facility] [address] [id number] [place] [address] 24 Jul, 2012 [facility] [address] [id number] [place] [address]- 9784 23 Jul, 2012 [facility] [address] [id number] [place] [address] 19 Jul, 2012 [facility] [address] [id number] [place] [address] 18 Jul, 2012 [facility] [place] [facility] [address] [id number] [place] [address] 5341 17 Jul, 2012 [facility] [place] [facility] [address] [id number] [place] [address] 1139 16 Jul, 2012 [facility] [place] [facility] [address] [id number] [place] [address] 2545 13 Jul, 2012 [facility] [place] [facility] [address] [id number] [place] [address] 2547 13 Jul, 2012 [facility] [place] [facility] [address] [id number] [place] [address] 2540 12 Jul, 2012 [facility] [place] [facility] [address] [id number] [place] [address]- 4142 11 Jul, 2012 [facility] [place] [facility] [address] [id number] [place] [address] 2546 Jul, [facility] [place] [facility] [address] [id number] [place] [address] 3916 Jun, [facility] [place] [facility] [address] [id number] [place] [address]- 5291 Jun, [facility] [place] [facility] [address] [id number] [place] [address] 5721 Jun, [facility] [place] [facility] [address] [id number] [place] [address] 2115 May, [facility] [place] [facility] [address] [id number] [place] [address]- 5729 May, [facility] [place] [facility] [address] [id number] [place] [address]- 6145 May, [facility] [place] [facility] [address] [id number] [place] [address]- 6533 May, [facility] [place] [facility] [address] [id number] [place] [address]- 6278 Apr, [facility] [place] [facility] [address] [id number] [place] [address]- 5518 Apr, [facility] [place] [facility] [address] [id number] [place] [address]- 6862 Apr, [facility] [place] [facility] [address] [id number] [place] [address]- 5904 Apr, [facility] [place] [facility] [address] [id number] [place] [address]- 6293 March, [facility] [place] [facility] [address] [id number] [place] [address]- 1236 March, [facility] [place] [facility] [address] [id number] [place] [address]- 6061 March, [facility] [place] [facility] [address] [id number] [place] [address]- 9179 Feb, [facility] [place] [facility] [address] [id number] [place] [address]- 9279 Feb, [facility] [address] [id number] [place] [address]- 5091 Jan, [facility] [place] [facility] [address] [id number] [place] [address]- 7573 Jan, [facility] [address] [id number] [place] [address]- 7399 Jan, [facility] [place] [facility] [address] [id number] [place] [address]- 3302 Jan, [facility] [address] [id number] [place] [address]- 1487 Jan, [facility] [place] [facility] [address] [facility] [id number] [place] [address]- 0220 Dec, [facility] [place] [facility] [address] [facility] [id number] [place] [address]- 4156 Dec, [facility] [address] [id number] [place] [address]- 1246 Dec, [facility] [place] [facility] [address] [id number] [place] [address]- 5756 Dec, [facility] [address] [id number] [place] [address]- 2409 Dec, [facility] [place] [facility] [address] [facility] [id number] [place] [address]- 7994 Dec, [facility] [place] [facility] [address] [facility] [id number] [place] [address]- 7185 Dec, [facility] [place] [facility] [address] [facility] [id number] [place] [address]- 7646 Dec, [facility] [place] [facility] [address] [facility] [id number] [place] [address]- 5089 Nov, [facility] [place] [facility] [id number] [place] [address]- 3733 Nov, [facility] [place] [facility] [address] [id number] [place] [address]- 5176 Nov, [facility] [place] [facility] [address] [id number] [place] [address]- 2426 Nov, [facility] [place] [facility] [address] [id number] [place] [address]- 9926 Nov, [facility] [place] [facility] [address] [id number] [place] [address]- 7386 Nov, [facility] [place] [facility] [address] [id number] [place] [address]- 8138 Nov, [facility] [place] [facility] [address] [id number] [place] [address]- 6036 Oct, [facility] [place] [facility] [address] [id number] [place] [address]- 6878 Oct, [facility] [place] [facility] [address] [id number] [place] [address]- 9244 Oct, [facility] [place] [facility] [address] [id number] [place] [address]- 2155 Oct, [facility] [place] [facility] [address] [id number] [place] [address]- 3932 Oct, [facility] [place] [facility] [address] [id number] [place] [address]- 8880 Oct, [facility] [place] [facility] [address] [id number] [place] [address]- 8858 Oct, [facility] [place] [facility] [address] [id number] [place] [address]- 6282 Oct, [facility] [place] [facility] [address] [id number] [place] [address]- 3570 Sep, [facility] [place] [facility] [address] [id number] [place] [address]69 Sep, [facility] [place] [facility] [address] [id number] [place] [address]- 8993 Sep, [facility] [place] [facility] [address] [id number] [place] [address]- 2741 Sep, [facility] [place] [facility] [address] [id number] [place] [address]- 4167 Sep, [facility] [place] [facility] [address] [id number] [place] [address]- 2274 Sep, [facility] [place] [facility] [address] [id number] [place] [address]- 4912 Sep, [facility] [place] [facility] [address] [id number] [place] [address]- 1282 Sep, [facility] [place] [facility] [address] [id number] [place] [address]- 7765 Sep, [facility] [place] [facility] [address] [id number] [place] [address]- 9078 Sep, [facility] [place] [facility] [address] [id number] [place] [address]- 3411 Sep, [facility] [place] [facility] [address] [id number] [place] [address]- 5703 Sep, [facility] [place] [facility] [address] [id number] [place] [address]- 0729 Sep, [facility] [place] [facility] [address] [id number] [place] [address]- 6773 Sep, [facility] [place] [facility] [address] [id number] [place] [address]- 2999 Sep, [facility] [place] [facility] [address] [id number] [place] [address]- 0529 Sep, [facility] [place] [facility] [address] [id number] [place] [address]- 2616 Sep, [facility] [place] [facility] [address] [id number] [place] [address]- 2647 Sep, [facility] [place] [facility] [address] [id number] [place] [address]- 8686 Sep, [facility] [place] [facility] [address] [id number] [place] [address]33 Sep, [facility] [place] [facility] [address] [id number] [place] 6620 Aug, [facility] [place] [facility] [address] [id number] [place] [address]- 1948 Aug, [facility] [place] [facility] [address] [id number] [place] [address]- 3057 Aug, [facility] [place] [facility] [address] [id number] [place] [address]- 6690 Aug, [facility] [place] [facility] [address] [id number] [place] [address]- 0769 Aug, [facility] [place] [facility] [address] [id number], [place] [address]- 6377 Aug, [facility] [place] [facility] [address] [id number], [place] [address]- 8460 Aug, [facility] [place] [facility] [address] [facility] [id number], [place] [address]- 5546 Aug, [facility] [place] [facility] [address] [facility] [id number], [place] [address]- 9251 16 Aug, 2012 [facility] [place] [facility] [address] [id number], [place] [address]- 3452 16 Aug, 2012 [facility] [place] [facility] [address] [id number], [place] [address]- 7367 15 Aug, 2012 [facility] [place] [facility] [address] [facility] [id number], [place] [address]- 9917 09 Aug, 2012 [facility] [place] [facility] [address] [facility] [id number][place] 5417 05 Aug, 2012 [facility] [place] [facility] [address] [id number], [place] [address]- 4319 05 Aug, 2012 [facility] [place] [facility] [address] [id number] [place] [address]- 8994 Aug, [facility] [place] [facility] [address] [id number] [place] [address]- 0881 14 Jul, 2012 [facility] [place] [facility] [address] [id number] [place] [address]- 0048 Jul, [facility] [place] [facility] [address] [id number] [place] [address]- 7592 Jun, [facility] [place] [facility] [address] [id number] [place] [address]- 6883 Jun, [facility] [place] [facility] [address] [id number] [place] [address]- 7434 May, [facility] [place] [facility] [address] [id number] [place] [address]- 8773 May, [facility] [place] [facility] [address] [id number] [place] [address]- 0443 May, [facility] [place] [facility] [address] [id number] [place] [address]- 9543 May, [facility] [place] [facility] [address] [id number] [place] [address]- 1441 May, [facility] [place] [facility] [address] [id number] [place] [address]- 9682 May, [facility] [place] [facility] [address] [id number] [place] [address]- 2444 Apr, [facility] [place] [facility] [address] [id number] [place] [address]- 6657 Apr, [facility] [place] [facility] [address] [id number] [place] [address]- 7954 March, [facility] [place] [facility] [address] [id number] [place] [address]- 4163 March, [facility] [place] [facility] [address] [id number] [place] [address]- 9225 16 Mar, 2012 [facility] [place] [facility] [address] [id number] [place] [address]- 4520 March, [facility] [place] [facility] [address] [id number] [place] [address]- 4746 March, [facility] [place] [facility] [address] [id number] [place] [address]- 2851 March, [facility] [place] [facility] [address] [id number] [place] [address]- 8689 Feb, [facility] [place] [facility] [address] [id number] [place] [address]- 1712 Feb, [facility] [place] [facility] [address] [id number] [place] [address]- 5794 Feb, [facility] [place] [facility] [address] [id number] [place] [address]- 5396 Feb, [facility] [place] [facility] [address] [id number] [place] [address]- 0380 Feb, [facility] [place] [facility] [address] [id number] [place] [address]- 6613 Feb, [facility] [place] [facility] [address] [id number] [place] [address]- 3437 Feb, [facility] [place] [facility] [address] [id number] [place] [address]- 9232 Feb, [facility] [place] [facility] [address] [id number] [place] [address]- 5100 Feb, [facility] [place] [facility] [address] [id number] [place] [address]- 6939 Jan, [facility] [place] [facility] [address] [id number] [place] [address]- 0570 Jan, [facility] [place] [facility] [address] [id number] [place] [address]- 3611 26 Jan, 2012 [facility] [place] [facility] [address] [id number] [place] [address]- 5246 22 Jan, 2012 [facility] [place] [facility] [address] [id number] [place] [address]- 6108 21 Jan, 2012 [facility] [place] [facility] [address] [id number] [place] [address]- 8751 20 Jan, 2012 [facility] [place] [facility] [address] [id number] [place] [address]- 2717 14 Jan, 2012 [facility] [place] [facility] [address] [id number] [place] [address]- 4291 09 Jan, 2012 [facility] [place] [facility] [address] [id number] [place] [address]- 0063 09 Jan, 2012 [facility] [place] [facility] [address] [id number] [place] [address]- 7321 08 Jan, 2012 [facility] [place] [facility] [address] [id number] [place] [address]- 6742 07 Jan, 2012 [facility] [place] [facility] [address] [id number] [place] [address]- 3537 06 Jan, 2012 [facility] [place] [facility] [address] [id number] [place] [address]- 7360 Jan, [facility] [place] [facility] [address] [id number] [place] [address]- 2410 Jan, [facility] [place] [facility] [address] [id number] [place] [address]- 7777 Dec, [facility] [place] [facility] [address] [id number] [place] [address]- 4045 Dec, [facility] [place] [facility] [address] [id number] [place] [address]- 3205 Dec, [facility] [place] [facility] [address] [id number] [place] [address]- 5686 Dec, [facility] [place] [facility] [address] [id number] [place] [address]- 1026 16 Dec, 2011 [facility] [address] [id number] [place] [address]- 0106 08 Dec, 2011 [facility] [place] [facility] [address] [id number] [place] [address] 2546 08 Dec, 2011 [facility] [address] [id number] [place] [address] 2546 07 Dec, 2011 [facility] [place] [facility] [address] [id number] [place] [address] 2546 07 Dec, 2011 [facility] [place] [facility] [address] [id number] [place] [address]- 0396 Nov, [facility] [address] [id number] [place] [address]- 4489 Nov, [facility] [address] [facility] [id number] [place] [address]- 8058 Nov, [facility] [address] [id number] [place] [address]- 4776 Nov, [facility] [address] [facility] [id number] [place] [address]- 8515 Oct, [facility] [address] [facility] [id number] [place] [address] 2546 Oct, [facility] [address] [id number] [place] [address] 2546 Oct, [facility] [place] [facility] [address] [id number] [place] [address] 2546 23 Oct, 2011 [facility] [place] [facility] [address] [id number] [place] [address] 2546 13 Oct, 2011 [facility] [place] [facility] [address] [id number] [place] [address] 2546 12 Oct, 2011 [facility] [place] [facility] [address] [id number] [place] [address]- 1879 Oct, [facility] [place] [facility] [address] [id number] [place] [address]- 3360 Sep, [facility] [place] [facility] [address] [id number] [place] [address]- 9779 Sep, [facility] [place] [facility] [address] [id number] [place] [address]- 7174 Sep, [facility] [place] [facility] [address] [id number] [place] [address]- 5481 Sep, [facility] [place] [facility] [address] [id number] [place] [address]- 9714 Sep, [facility] [place] [facility] [address] [id number] [place] [address]- 5127 Sep, [facility] [place] [facility] [address] [id number] [place] [address]- 9265 Sep, [facility] [place] [facility] [address] [id number], [place] [address]- 7412 Sep, [facility] [place] [facility] [address] [id number] [place] [address]- 5204 Sep, [facility] [place] [facility] [address] [id number] [place] [address]- 6728 Aug, [facility] [place] [facility] [address] [id number], [place] [address]- 0563 Aug, [facility] [place] [facility] [address] [id number], [place] [address]- 3062 Aug, [facility] [place] [facility] [address] [id number] [place] [address]- 2489 May, [facility] [place] [facility] [address] [id number], [place] [address]- 9713 Nov, [facility] [place] [facility] [address] [id number] [place] [address]- 0038 Oct, [facility] [place] [facility] [address] [id number] [place] [address]- 8726 30 Oct, 2010 [facility] [address] [id number] [place] [address]- 4856 30 Oct, 2010 [facility] [place] [facility] [address] [id number] [place] [address] 2546 Oct, [facility] [address] [id number] [place] [address] 2546 Oct, [facility] [place] [facility] [address] [id number] [place] [address] 2546 Sep, [facility] [address] [id number] [place] [address]- 1826 Sep, [facility] [address] [id number] [place] [address]- 1506 14 Jul, 2010 [facility] [address] [id number] [place] [address]- 4654 Oct, [facility] [address] [id number] [place] [address] 2549 Oct, [facility] [address] [id number] [place] [address] 2546 Oct, [facility] [address] [facility] [id number] [place] [address] 2549 Oct, [facility] [address] [id number] [place] [address] 2546 Sep, [facility] [place] [facility] [address] [id number], [place] [address] 2546 Sep, [facility] [place] [facility] [address] [id number] [place] [address] 2546 Sep, [facility] [place] [facility] [address] [facility] [id number] [place] [address] 2546 Sep, [facility] [place] [facility] [address] [id number], [place] [address] 2545 Sep, [facility] [address] [facility] [id number] [place] [address]- 1269 Jul, [facility] [address] [facility] [id number], [place] [address]- 6982 Apr, [facility] [address] [facility] [id number] [place] [address]- 8055 Dec, IMMUNIZATIONS No Known Immunizations SOCIAL HISTORY Never Assessed REASON FOR VISIT PLAN OF CARE VITAL SIGNS MEDICATIONS Medication Instructions Dosage Frequency Start Date End Date Duration Status Ferrous Sulfate 325 (65 Fe) MG Orally twice a day 1 tablet 12h 16 Jun, 2018 30 day(s) Active RESULTS No Results PROCEDURES No Known procedures INSTRUCTIONS MEDICATIONS ADMINISTERED No Known Medications MEDICAL (GENERAL) HISTORY Type Description Date Medical History hypertension Medical History hyperlipidemia Medical History diabetes type II Medical History COPD Medical History asthma Surgical History hysterectomy Surgical History arthritis surgery Hospitalization History surgeries
--- OUTSIDE RECORDS SUMMARY | 2018-11-26 15:44 | XMS REPORT ---
Author Author KING FISHMAN Organization [facility] Address [address] [place] [address] Care Team Providers Care [place] Alderman Name Role Phone KING FISHMAN Unavailable PROBLEMS Type Condition ICD9-CM Code [id number] Code Onset Dates Condition Status SNOMED Code Problem Lumbago with sciatica, left side M54.42 Active 714259987 Problem Other chronic pain G89.29 Active 37778236 Problem Lumbago with sciatica, right side M54.41 Active [id number] Problem Iron deficiency anemia due to chronic blood loss D50.0 Active 007505464 Problem Seizures R56.9 Active 79024878 Problem Chronic obstructive pulmonary disease, unspecified COPD type J44.9 Active 76342084 Problem Pain in right ankle and joints of right foot M25.571 Active 90085375092071 Problem DM 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 Active 21039966 Problem Cigarette nicotine dependence without complication F17.210 Active 34571718 Problem Mixed hyperlipidemia E78.2 Active 955492217 Problem Essential hypertension I10 Active 52765152 Problem Prediabetes R73.03 Active 843354542 Problem Acquired hypothyroidism E03.9 Active 525730438 Problem Reactive depression F32.9 Active 27163137 Problem Gastroesophageal reflux disease, esophagitis presence not specified K21.9 Active [id number] ALLERGIES No Information ENCOUNTERS Encounter Location Date Diagnosis [facility] [address] [facility] [id number], [place] [address] Oct, [facility] [id number] [place] [address] 83264- 7124 Jul, Onychomycosis B35.1 ; Onychocryptosis L60.0 and DM 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 [facility] [address] [facility] [id number], [place] [address] Jun, Pain in thoracic spine M54.6 [facility] [id number] [place] [address] 29369- 9718 Jun, Iron deficiency anemia due to chronic blood loss D50.0 and Hematochezia K92.1 [facility] [id number] [place] [address] 20074- 8776 Jun, Gastroenteritis K52.9 and Abnormal RBC indices R71.8 [facility] [address] [address]- [address] Jun, [facility] [address] [address]- 2404 Jun, Chest congestion R09.89 and Seizures R56.9 [facility] [address] [address]004- 7158 May, Pain in thoracic spine M54.6 [facility] [id number] [place] [address] 09782- 9340 May, [facility] [id number] [place] [address] 94515- 1987 May, [facility] [id number] [place] [address] 35461- 1568 May, [facility] [id number] [place] [address] 73318- 3583 May, Acute non-recurrent frontal sinusitis J01.10 and Dermatitis L30.9 [facility] [id number] [place] [address] 00401 2540 May, [facility] [id number] [place] [address] 35655- 1576 May, Pain in thoracic spine M54.6 [facility] [id number] [place] [address] 13955- 2246 May, [facility] [id number] [place] [address] 71210- 2765 May, Acute nasopharyngitis J00 [facility] [address] [address] 0410 May, [facility] [id number] [place] [address] 39983- 3382 May, [facility] [id number] [place] [address] 29256- 7502 Apr, [facility] [id number] [place] [address] 41142- 0593 Apr, [facility] [id number] [place] [address] 01679- 5366 Apr, [facility] [id number] [place] [address] 64961- 2644 Apr, [facility] [id number] [place] [address] 92430- 3800 Apr, Pain in right ankle and joints of right foot M25.571 [facility] [id number] [place] [address] 07798- 6133 Apr, [facility] [id number] [place] [address] 43749- 7924 Apr, Bronchitis J40 ; Pain in right ankle and joints of right foot M25.571 ; Other chronic pain G89.29 ; Prediabetes R73.03 ; Chronic obstructive pulmonary disease, unspecified COPD type J44.9 and Cigarette nicotine dependence without complication F17.210 [facility] [address], [place] [address] 13 Apr, 2018 Seasonal allergic rhinitis, unspecified trigger J30.2 [facility] [id number] [place] [address] 68187- 1260 08 Apr, 2018 Onychomycosis B35.1 ; Onychocryptosis L60.0 and DM 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 [facility] [id number] [place] [address] 87725- 3309 Apr, Reactive depression F32.9 ; Thoracic myofascial strain, initial encounter S29.019A and Leg cramps R25.2 [facility] [address] 51991- 5793 March, [facility] [address] 40685- 4846 March, Type 2 diabetes mellitus with hyperglycemia E11.65 [facility] [address] 54773- 3631 March, Reactive depression F32.[address] [address]53- 2988 March, Pain in thoracic spine M54.6 and Other chronic pain G89.29 [facility] [address] 19226- 9253 Feb, [facility] [address] 26927- 2571 Jan, Reactive depression F32.9 ; Essential hypertension I10 ; Gastroesophageal reflux disease, esophagitis presence not specified K21.9 ; Lumbago with sciatica, left side M54.42 and Lumbago with sciatica, right side M54.41 [facility] [address] 23180- 3712 Jan, Reactive depression F32.9 and Pharyngoesophageal dysphagia R13.14 [facility] [address] 96260- 9067 Jan, [facility] [address] 84359- 2388 Jan, Encounter for immunization Z23 [facility] [address] 58793- 8525 Jan, Onychomycosis B35.1 and DM 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 08803- 7824 Jan, [facility] [id number] [place] [address] 74320- 3172 Jan, Prediabetes R73.03 [facility] [id number] [place] [address] 10714- 9830 Dec, [facility] [address] 20340- 6883 Dec, Essential hypertension I10 ; Mixed hyperlipidemia E78.2 ; Acquired hypothyroidism E03.9 ; Reactive depression F32.9 and Prediabetes R73.03 [facility] [id number] [place] [address] 70961- 3604 Dec, [facility] [id number] [place] [address] 44714- 1245 Dec, [facility] [address] 05936- 5580 Dec, DM 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 [facility] [id number] [place] [address] 14515 -4328 Dec, Bruise T14.8XXA ; Type 2 diabetes mellitus with hyperglycemia E11.65 and MCC current use of insulin Z79.4 [facility] [id number] [place] [address] 07479- 7889 Oct, [facility] [id number] [place] [address] 29639- 1047 March, Onychomycosis B35.1 and DM 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 [facility] [id number] [place] [address] 16376- 9063 Jun, [facility] [id number] [place] [address] 29908- 0658 Jun, [facility] [id number] [place] [address] 68204- 5851 Jun, COPD with acute exacerbation 491.21 [facility] [place] [facility] [address] [id number] [place] [address]- 9197 15 Apr, 2015 [facility] [place] [facility] [address] [id number] [place] [address]- 1101 14 Feb, 2015 [facility] [place] [facility] [address] [id number] [place] [address]- 2079 Feb, [facility] [place] [facility] [address] [id number] [place] [address]- 8207 Jan, [facility] [place] [facility] [address] [id number] [place] [address]- 2473 Jan, [facility] [place] [facility] [address] [id number] [place] [address]- 1362 Jan, [facility] [place] [facility] [address] [id number] [place] [address]- 4009 Jan, [facility] [place] [facility] [address] [id number] [place] [address]- 5531 Jan, [facility] [place] [facility] [address] [id number] [place] [address]- 9675 Jan, [facility] [place] [facility] [address] [id number] [place] [address]- 9181 Jan, [facility] [place] [facility] [address] [id number] [place] [address]- 6407 Jan, [facility] [place] [facility] [address] [id number], [place] [address]- 3660 Jan, [facility] [place] [facility] [address] [id number] [place] [address]- 4006 Jan, [facility] [place] [facility] [address] [id number] [place] [address]- 2584 Jan, [facility] [place] [facility] [address] [id number] [place] [address]- 6430 Jan, [facility] [place] [facility] [address] [id number] [place] [address]- 3788 18 Jan, 2014 [facility] [place] [facility] [address] [id number] [place] [address]- 1308 16 Jan, 2014 [facility] [place] [facility] [address] [id number] [place] [address]- 3400 16 Jan, 2014 [facility] [place] [facility] [address] [id number] [place] [address]- 7320 16 Jan, 2014 [facility] [place] [facility] [address] [id number] [place] [address]- 6784 16 Jan, 2014 [facility] [place] [facility] [address] [id number] [place] [address]- 5328 15 Jan, 2015 [facility] [place] [facility] [address] [id number] [place] [address]- 0958 13 Jan, 2014 [facility] [place] [facility] [address] [id number] [place] [address]- 3402 13 Jan, 2014 [facility] [place] [facility] [address] [id number] [place] [address]- 1762 13 Jan, 2015 [facility] [place] [facility] [address] [id number] [place] [address]- 0280 13 Jan, 2014 [facility] [place] [facility] [address] [id number] [place] [address]- 4115 12 Jan, 2015 [facility] [place] [facility] [address] [id number] [place] [address]- 1924 04 Jan, 2015 [facility] [place] [facility] [address] [id number] [place] [address]- 5907 04 Jan, 2015 [facility] [place] [facility] [address] [id number] [place] [address]- 8629 24 Dec, 2014 [facility] [place] [facility] [address] [id number] [place] [address]- 3663 24 Dec, 2014 [facility] [place] [facility] [address] [id number] [place] [address]- 3686 Dec, [facility] [place] [facility] [address] [id number] [place] [address]- 2442 Dec, [facility] [place] [facility] [address] [id number] [place] [address]- 9406 Dec, [facility] [place] [facility] [address] [id number] [place] [address]- 1086 Dec, [facility] [place] [facility] [address] [id number] [place] [address]- 8813 Dec, [facility] [place] [facility] [address] [id number] [place] [address]- 5560 Dec, [facility] [place] [facility] [address] [id number] [place] [address]- 2871 Dec, [facility] [place] [facility] [address] [id number] [place] [address]- 1270 Dec, [facility] [place] [facility] [address] [id number] [place] [address]- 7375 Dec, [facility] [place] [facility] [address] [id number] [place] [address]- 0924 Dec, [facility] [place] [facility] [address] [id number] [place] [address]- 9198 Nov, [facility] [place] [facility] [address] [id number] [place] [address]- 3968 Nov, [facility] [place] [facility] [address] [id number] [place] [address]- 4727 Nov, [facility] [place] [facility] [address] [id number] [place] [address]- 6942 Nov, [facility] [place] [facility] [address] [id number] [place] [address]- 0771 Nov, [facility] [place] [facility] [address] [id number] [place] [address]- 3909 Nov, [facility] [place] [facility] [address] [id number] [place] [address]- 9635 15 Nov, 2014 [facility] [address] [id number] [place] [address]- 7850 Nov, [facility] [address] [id number] [place] [address]- 7119 Nov, [facility] [address] [id number] [place] [address]- 7481 Nov, [facility] [address] [id number] [place] [address]- 3448 Nov, [facility] [address] [id number] [place] [address]- 7676 Nov, [facility] [address] [id number] [place] [address]- 8830 Oct, [facility] [address] [id number] [place] [address]- 2624 Oct, [facility] [address] [id number] [place] [address]- 4170 Oct, [facility] [address] [id number] [place] [address]- 8910 Oct, [facility] [address] [id number] [place] [address]- 7194 Oct, [facility] [address] [id number] [place] [address]- 5422 29 Oct, 2014 [facility] [address] [id number] [place] [address]- 0041 Oct, [facility] [place] [facility] [address] [id number] [place] [address]- 1556 Oct, [facility] [place] [facility] [address] [id number] [place] [address]- 0636 Oct, [facility] [place] [facility] [address] [id number] [place] 3908 Oct, [facility] [place] [facility] [address] [id number] [place] [address]- 4356 16 Oct, 2014 [facility] [place] [facility] [address] [id number] [place] [address]- 8490 Oct, [facility] [place] [facility] [address] [id number] [place] [address]- 6871 Oct, [facility] [place] [facility] [address] [id number] [place] [address]- 8417 Oct, [facility] [place] [facility] [address] [id number] [place] [address]- 7287 Oct, [facility] [place] [facility] [address] [id number] [place] [address]- 8203 Sep, [facility] [place] [facility] [address] [id number] [place] [address]- 0888 Sep, [facility] [place] [facility] [address] [id number] [place] [address]- 9379 Sep, [facility] [place] [facility] [address] [id number] [place] [address]- 9118 Sep, [facility] [place] [facility] [address] [id number], [place] [address]- 9127 Aug, [facility] [place] [facility] [address] [id number], [place] [address]- 7288 Aug, [facility] [place] [facility] [address] [id number], [place] [address]- 7172 Aug, [facility] [place] [facility] [address] [id number], [place] [address]- 0412 Aug, [facility] [place] [facility] [address] [id number], [place] [address]- 6064 Aug, [facility] [place] [facility] [address] [id number], [place] [address]- 8032 Aug, [facility] [place] [facility] [address] [id number], [place] [address]- 5053 Jul, [facility] [place] [facility] [address] [id number] [place] [address]- 1089 29 Jul, 2014 [facility] [place] [facility] [address] [id number] [place] [address]- 5015 Jul, [facility] [place] [facility] [address] [id number] [place] [address]- 5305 Jul, [facility] [place] [facility] [address] [id number] [place] [address]- 6459 Jul, [facility] [place] [facility] [address] [id number] [place] [address]- 8786 Jul, [facility] [place] [facility] [address] [id number] [place] [address]- 9981 Jun, [facility] [place] [facility] [address] [id number] [place] [address]- 7544 Jun, [facility] [place] [facility] [address] [id number] [place] [address]- 7207 Jun, [facility] [place] [facility] [address] [id number] [place] [address]- 2419 Jun, [facility] [place] [facility] [address] [id number] [place] [address]- 3928 Jun, [facility] [place] [facility] [address] [id number] [place] [address]- 5418 Jun, [facility] [place] [facility] [address] [id number] [place] [address]- 9704 Jun, [facility] [place] [facility] [address] [id number] [place] [address]- 2181 May, [facility] [place] [facility] [address] [id number] [place] [address]- 8916 May, [facility] [place] [facility] [address] [id number] [place] [address]- 7210 May, [facility] [place] [facility] [address] [id number] [place] [address]- 2174 May, 2013 [facility] [place] [facility] [address] [id number] [place] [address]- 1409 May, 2013 [facility] [place] [facility] [address] [id number] [place] [address]- 0046 May, 2013 [facility] [place] [facility] [address] [id number] [place] [address]- 8769 May, 2013 [facility] [place] [facility] [address] [id number] [place] [address]- 3364 May, 2013 [facility] [place] [facility] [address] [id number] [place] [address]- 2517 May, [facility] [place] [facility] [address] [id number] [place] [address]- 1521 May, [facility] [place] [facility] [address] [id number] [place] [address]- 4288 May, [facility] [place] [facility] [address] [id number] [place] [address]- 8529 May, [facility] [place] [facility] [address] [id number] [place] [address]- 4907 Apr, [facility] [place] [facility] [address] [id number] [place] [address]- 6740 Apr, [facility] [place] [facility] [address] [id number] [place] [address]- 4528 Apr, [facility] [place] [facility] [address] [id number] [place] [address]- 6975 Apr, [facility] [place] [facility] [address] [id number] [place] [address]- 6158 Apr, [facility] [place] [facility] [address] [id number] [place] [address]- 5306 Apr, [facility] [place] [facility] [address] [id number] [place] [address]- 5693 Apr, [facility] [place] [facility] [address] [id number] [place] [address]- 1805 Apr, [facility] [place] [facility] [address] [id number] [place] [address]- 2640 Apr, [facility] [place] [facility] [address] [id number] [place] [address]- 7643 Apr, [facility] [place] [facility] [address] [id number] [place] [address]- 3198 March, [facility] [place] [facility] [address] [id number] [place] [address]- 5568 March, [facility] [place] [facility] [address] [id number] [place] [address]- 3700 March, [facility] [place] [facility] [address] [id number] [place] [address]- 9346 March, [facility] [place] [facility] [address] [id number] [place] [address]- 8267 March, [facility] [place] [facility] [address] [id number] [place] [address]- 9357 March, [facility] [place] [facility] [address] [id number] [place] [address]- 2617 Feb, [facility] [place] [facility] [address] [id number] [place] [address]- 1892 Feb, [facility] [place] [facility] [address] [id number] [place] [address]- 2782 Feb, [facility] [place] [facility] [address] [id number] [place] [address]- 7814 Feb, [facility] [place] [facility] [address] [id number] [place] [address]- 4521 Feb, [facility] [place] [facility] [address] [id number] [place] [address]- 4622 Feb, [facility] [place] [facility] [address] [id number] [place] [address]- 4764 Feb, [facility] [place] [facility] [address] [id number] [place] 9731 Feb, [facility] [place] [facility] [address] [id number] [place] 0646 Feb, [facility] [place] [facility] [address] [id number] [place] [address]- 3570 Feb, [facility] [place] [facility] [address] [id number] [place] [address]- 7397 Jan, [facility] [place] [facility] [address] [id number] [place] [address]- 9893 Jan, [facility] [place] [facility] [address] [id number] [place] [address]- 4731 Jan, [facility] [place] [facility] [address] [id number] [place] [address]- 3691 Jan, [facility] [place] [facility] [address] [id number] [place] [address]- 2077 Jan, [facility] [place] [facility] [address] [id number] [place] [address]- [address] Jan, [facility] [place] [facility] [address] [facility] [id number] [place] [address] Jan, [facility] [place] [facility] [address] [id number] [place] [address] Jan, [facility] [place] [facility] [address] [id number] [place] [address] Dec, [facility] [place] [facility] [address] [id number] [place] [address] Dec, [facility] [place] [facility] [address] [id number] [place] [address] Dec, [facility] [place] [facility] [address] [id number] [place] [address] Dec, [facility] [place] [facility] [address] [id number] [place] [address] Dec, [facility] [place] [facility] [address] [id number] [place] [address] Dec, [facility] [place] [facility] [address] [id number] [place] [address] Dec, [facility] [place] [facility] [address] [id number] [place] [address] 47[address] Dec, [facility] [place] [facility] [address] [id number] [place] [address] Nov, [facility] [place] [facility] [address] [id number] [place] [address] Nov, [facility] [place] [facility] [address] [id number] [place] [address] Nov, [facility] [place] [facility] [address] [id number] [place] [address]- [address] Nov, [facility] [place] [facility] [address] [id number] [place] [address]- [address] Nov, [facility] [place] [facility] [address] [id number] [place] [address]- [address] Nov, [facility] [place] [facility] [address] [id number], [place] [address] Nov, [facility] [place] [facility] [address] [id number], [place] [address] Nov, [facility] [place] [facility] [address] [id number] [place] [address] Nov, [facility] [place] [facility] [address] [id number] [place] [address]- [address] Nov, [facility] [place] [facility] [address] [id number] [place] [address] Nov, [facility] [place] [facility] [address] [id number] [place] [address] Oct, [facility] [address] [id number] [place] [address]- [address] Oct, [facility] [place] [facility] [address] [id number] [place] [address] Oct, [facility] [place] [facility] [address] [id number] [place] [address] Oct, [facility] [place] [facility] [address] [id number] [place] [address] Sep, [facility] [place] [facility] [address] [id number] [place] [address] Sep, [facility] [place] [facility] [address] [id number] [place] [address] Sep, [facility] [place] [facility] [address] [id number] [place] [address] Sep, [facility] [place] [facility] [address] [id number] [place] [address] Aug, [facility] [place] [facility] [address] [id number] [place] [address] Aug, [facility] [place] [facility] [address] [facility] [id number] [place] [address] Aug, [facility] [place] [facility] [address] [id number] [place] [address] Aug, [facility] [place] [facility] [address] [id number], [place] [address] Aug, [facility] [place] [facility] [address] [id number] [place] [address] Aug, [facility] [place] [facility] [address] [facility] [id number] [place] [address] Aug, [facility] [place] [facility] [address] [id number] [address] Aug, [facility] [place] [facility] [address] [id number] [place] [address]- [address] 28 Jul, 2012 [facility] [place] [facility] [address] [id number] [place] [address] 27 Sep, 2012 [facility] [place] [facility] [address] [id number] [place] [address]- [address] 26 Jul, 2012 [facility] [place] [facility] [address] [id number] [place] [address] 24 Jul, 2012 [facility] [address] [id number] [place] [address]- [address] 24 Jul, 2012 [facility] [place] [facility] [address] [id number] [place] [address]- [address] 23 Jul, 2012 [facility] [address] [id number] [place] [address]- [address] 19 Jul, 2012 [facility] [address] [id number] [place] [address] 18 Jul, 2012 [facility] [address] [id number] [place] [address] 17 Jul, 2012 [facility] [place] [facility] [address] [id number] [place] [address] 16 Jul, 2012 [facility] [place] [facility] [address] [id number] [place] [address] 13 Jul, 2012 [facility] [place] [facility] [address] [id number] [place] [address]- 2542 13 Jul, 2012 [facility] [place] [facility] [address] [id number] [place] [address]- 2547 12 Jul, 2012 [facility] [place] [facility] [address] [id number] [place] [address]- 2544 11 Jul, 2012 [facility] [place] [facility] [address] [id number] [place] [address]- [address]44 04 Sep, 2012 [facility] [place] [facility] [address] [id number] [place] [address]- 2546 Jun, [facility] [place] [facility] [address] [id number] [place] [address]- 9680 Jun, [facility] [place] [facility] [address] [id number] [place] [address]- 1586 Jun, [facility] [place] [facility] [address] [id number] [place] [address]- 0842 May, [facility] [place] [facility] [address] [id number] [place] [address]- 3587 May, [facility] [place] [facility] [address] [id number] [place] [address]- 5442 May, [facility] [place] [facility] [address] [id number] [place] [address]- 1496 May, [facility] [place] [facility] [address] [id number] [place] [address]- 7023 Apr, [facility] [place] [facility] [address] [id number] [place] [address]- 4935 Apr, [facility] [place] [facility] [address] [id number] [place] [address]- 1372 Apr, [facility] [place] [facility] [address] [id number] [place] [address]- 2464 Apr, [facility] [place] [facility] [address] [id number] [place] [address]- 3182 March, [facility] [place] [facility] [address] [id number] [place] [address]- 6194 March, [facility] [place] [facility] [address] [id number] [place] [address]- 0454 March, [facility] [place] [facility] [address] [id number] [place] [address]- 2063 Feb, [facility] [place] [facility] [address] [id number] [place] [address]- 2594 Feb, [facility] [place] [facility] [address] [id number] [place] [address]- 1345 Jan, [facility] [address] [id number] [place] [address]- 3331 Jan, [facility] [place] [facility] [address] [id number] [place] [address]- 2531 Jan, [facility] [address] [id number] [place] [address]- 5936 Jan, [facility] [place] [facility] [address] [id number] [place] [address]- 9577 Jan, [facility] [address] [id number] [place] [address]- 9989 Dec, [facility] [place] [facility] [address] [id number] [place] [address]- 0940 Dec, [facility] [place] [facility] [address] [id number] [place] [address]- 4171 Dec, [facility] [address] [id number] [place] [address]- 5953 Dec, [facility] [address] [id number] [place] [address]- 5377 Dec, [facility] [address] [facility] [id number] [place] [address]- 3982 Dec, [facility] [place] [facility] [address] [id number] [place] [address]- 1108 Dec, [facility] [place] [facility] [address] [id number] [place] [address]- 7234 Dec, [facility] [place] [facility] [address] [id number] [place] [address]- 6723 Nov, [facility] [place] [facility] [address] [id number] [place] [address]- 3448 Nov, [facility] [place] [facility] [address] [id number] [place] [address]- 2546 Nov, [facility] [place] [facility] [address] [id number] [place] [address]- 9815 Nov, [facility] [place] [facility] [address] [id number] [place] [address]- 8796 Nov, [facility] [place] [facility] [address] [id number] [place] [address]- 9722 Nov, [facility] [place] [facility] [address] [id number] [place] [address]- 3225 Nov, [facility] [place] [facility] [address] [id number] [place] [address]- 8532 Oct, [facility] [place] [facility] [address] [id number] [place] [address]- 2361 Oct, [facility] [place] [facility] [address] [id number] [place] [address]- 4614 Oct, [facility] [place] [facility] [address] [id number] [place] [address]- 7181 Oct, [facility] [place] [facility] [address] [id number] [place] [address]- 5215 Oct, [facility] [place] [facility] [address] [id number] [place] [address]- 7796 Oct, [facility] [place] [facility] [address] [id number] [place] [address]- 6030 Oct, [facility] [place] [facility] [address] [id number] [place] [address]- 5411 Oct, [facility] [place] [facility] [address] [id number] [place] [address]- 6651 Sep, [facility] [place] [facility] [address] [id number] [place] [address]- 2999 Sep, [facility] [place] [facility] [address] [id number] [place] [address]- 4103 Sep, [facility] [place] [facility] [address] [id number] [place] [address]- 3329 Sep, [facility] [place] [facility] [address] [id number] [place] [address]- 9759 Sep, [facility] [place] [facility] [address] [id number] [place] [address]- 4731 Sep, [facility] [place] [facility] [address] [id number] [place] [address]- 6328 Sep, [facility] [place] [facility] [address] [id number] [place] [address]- 8492 Sep, [facility] [place] [facility] [address] [id number] [place] [address]- 3838 Sep, [facility] [place] [facility] [address] [id number] [place] [address]- 9379 Sep, [facility] [place] [facility] [address] [id number] [place] [address]- 9850 Sep, [facility] [place] [facility] [address] [id number] [place] [address]- 7227 Sep, [facility] [place] [facility] [address] [id number] [place] [address]- 8911 Sep, [facility] [place] [facility] [address] [id number] [place] [address]- 5165 Sep, [facility] [place] [facility] [address] [id number] [place] [address]- 7039 Sep, [facility] [place] [facility] [address] [id number] [place] [address]- 0912 Sep, [facility] [place] [facility] [address] [id number] [place] [address]- 3499 Sep, [facility] [place] [facility] [address] [id number] [place] [address]- 4874 Sep, [facility] [place] [facility] [address] [id number] [place] [address]- 7219 Sep, [facility] [place] [facility] [address] [id number] [place] [address]- 8154 Sep, [facility] [place] [facility] [address] [id number] [place] [address]- 4189 Aug, [facility] [place] [facility] [address] [id number] [place] [address]- 6326 Aug, [facility] [place] [facility] [address] [id number] [place] [address]- 7168 Aug, [facility] [place] [facility] [address] [id number] [place] [address]- 9863 Aug, [facility] [place] [facility] [address] [id number] [place] [address]- 0022 Aug, [facility] [place] [facility] [address] [id number] [place] [address]- 5979 Aug, [facility] [place] [facility] [address] [id number], [place] [address]- 4274 Aug, [facility] [place] [facility] [address] [id number], [place] [address]- 8466 Aug, [facility] [place] [facility] [address] [facility] [id number], [place] [address]- 8224 Aug, [facility] [place] [facility] [address] [facility] [id number], [place] [address]- 0604 16 Aug, 2012 [facility] [place] [facility] [address] [id number], [place] [address]- 9729 15 Aug, 2012 [facility] [place] [facility] [address] [id number], [place] [address]- 9586 Aug, [facility] [place] [facility] [address] [id number], [place] [address]- 5695 Aug, [facility] [place] [facility] [address] [facility] [id number], [place] [address]- 3886 Aug, [facility] [place] [facility] [address] [id number], [place] [address]- 2050 04 Aug, 2012 [facility] [address] [id number] [place] [address]- 9874 14 Jul, 2012 [facility] [place] [facility] [address] [id number] [place] [address]- 5096 10 Jul, 2012 [facility] [place] [facility] [address] [id number] [place] [address]- 4396 31 Jun, 2012 [facility] [place] [facility] [address] [id number] [place] [address]- 8606 Jun, [facility] [place] [facility] [address] [id number] [place] [address]- 3945 31 May, 2012 [facility] [place] [facility] [address] [id number] [place] [address]- 8065 May, [facility] [address] [id number] [place] [address]- 5636 May, [facility] [place] [facility] [address] [id number] [place] [address]- 4474 May, [facility] [place] [facility] [address] [id number] [place] [address]- 2761 May, [facility] [place] [facility] [address] [id number] [place] [address]- 4407 May, [facility] [place] [facility] [address] [id number] [place] [address]- 4319 Apr, [facility] [place] [facility] [address] [id number] [place] [address]- 4271 Apr, [facility] [place] [facility] [address] [id number] [place] [address]- 5390 March, [facility] [place] [facility] [address] [id number] [place] [address]- 9502 March, [facility] [place] [facility] [address] [id number] [place] [address]- 5281 March, [facility] [place] [facility] [address] [id number] [place] [address]- 5548 15 Mar, 2012 [facility] [place] [facility] [address] [id number] [place] [address]- 7830 March, [facility] [place] [facility] [address] [id number] [place] [address]- 4646 March, [facility] [place] [facility] [address] [id number] [place] [address]- 0789 Feb, [facility] [place] [facility] [address] [id number] [place] [address]- 3949 Feb, [facility] [place] [facility] [address] [id number] [place] [address]- 1968 Feb, [facility] [place] [facility] [address] [id number] [place] [address]- 4326 Feb, [facility] [place] [facility] [address] [id number] [place] [address]- 0682 Feb, [facility] [place] [facility] [address] [id number] [place] [address]- 4315 Feb, [facility] [place] [facility] [address] [id number] [place] [address]- 2794 Feb, [facility] [place] [facility] [address] [id number] [place] [address]- 3740 Feb, [facility] [place] [facility] [address] [id number] [place] [address]- 2633 Feb, [facility] [place] [facility] [address] [id number] [place] [address]- 6579 Jan, [facility] [place] [facility] [address] [id number] [place] [address]- 9858 Jan, [facility] [place] [facility] [address] [id number] [place] [address]- 0258 Jan, [facility] [place] [facility] [address] [id number] [place] [address]- 1909 22 Jan, 2012 [facility] [place] [facility] [address] [id number] [place] [address]- 8045 21 Jan, 2012 [facility] [place] [facility] [address] [id number] [place] [address]- 6535 20 Jan, 2012 [facility] [place] [facility] [address] [id number] [place] [address]- 9962 14 Jan, 2012 [facility] [place] [facility] [address] [id number] [place] [address]- 6424 09 Jan, 2012 [facility] [place] [facility] [address] [id number] [place] [address]- 4664 09 Jan, 2012 [facility] [place] [facility] [address] [id number] [place] [address]- 1400 08 Jan, 2012 [facility] [place] [facility] [address] [id number] [place] [address]- 9501 07 Jan, 2012 [facility] [place] [facility] [address] [id number] [place] [address]- 8077 06 Jan, 2012 [facility] [place] [facility] [address] [id number] [place] [address]- 2714 02 Jan, 2012 [facility] [place] [facility] [address] [id number] [place] [address]- 1708 02 Jan, 2012 [facility] [place] [facility] [address] [id number] [place] [address]- 8277 28 Dec, 2011 [facility] [place] [facility] [address] [id number] [place] [address]- 1532 27 Dec, 2011 [facility] [place] [facility] [address] [id number] [place] [address]- 6373 25 Dec, 2011 [facility] [place] [facility] [address] [id number] [place] [address]- 6524 23 Dec, 2011 [facility] [place] [facility] [address] [id number] [place] [address]- 9597 16 Dec, 2011 [facility] [place] [facility] [address] [id number] [place] [address]- 9486 08 Dec, 2011 [facility] [address] [id number] [place] [address]- 6046 08 Dec, 2011 [facility] [place] [facility] [address] [id number] [place] [address] 2546 Dec, [facility] [address] [id number] [place] [address] 2546 Dec, [facility] [place] [facility] [address] [id number] [place] [address] 254 Nov, [facility] [place] [facility] [address] [id number] [place] [address]- 0136 Nov, [facility] [address] [id number] [place] [address]- 8203 Nov, [facility] [address] [id number] [place] [address]- 3468 Nov, [facility] [address] [id number] [place] [address]- 7133 Oct, [facility] [address] [id number] [place] [address]- 254 Oct, [facility] [address] [id number] [place] [address]- 7256 Oct, [facility] [address] [id number] [place] [address] 2546 Oct, [facility] [place] [facility] [address] [id number] [place] [address] 2546 Oct, [facility] [place] [facility] [address] [id number] [place] [address] 2546 Oct, [facility] [place] [facility] [address] [id number] [place] [address] 2546 05 Oct, 2011 [facility] [place] [facility] [address] [id number] [place] [address]- 7737 Sep, [facility] [place] [facility] [address] [id number] [place] [address]- 1452 Sep, [facility] [place] [facility] [address] [id number] [place] [address]- 2606 Sep, [facility] [place] [facility] [address] [id number] [place] 3063 Sep, [facility] [place] [facility] [address] [id number] [place] [address]- 9061 Sep, [facility] [place] [facility] [address] [id number] [place] [address]- 7388 Sep, [facility] [place] [facility] [address] [id number] [place] [address]- 6358 Sep, [facility] [place] [facility] [address] [id number] [place] [address]- 5974 Sep, [facility] [place] [facility] [address] [id number], [place] [address]- 7290 Sep, [facility] [place] [facility] [address] [id number] [place] [address]- 2230 Aug, [facility] [place] [facility] [address] [id number] [place] [address]- 9830 Aug, [facility] [place] [facility] [address] [id number], [place] [address]- 3176 Aug, [facility] [place] [facility] [address] [id number], [place] [address]- 4678 May, [facility] [place] [facility] [address] [id number] [place] [address]- 2692 Nov, [facility] [place] [facility] [address] [id number], [place] [address]- 2250 Oct, [facility] [place] [facility] [address] [id number] [place] [address]14 Oct, [facility] [place] [facility] [address] [id number] [place] [address]- 8504 30 Oct, 2010 [facility] [address] [id number] [place] [address]- 2906 02 Oct, 2010 [facility] [place] [facility] [address] [id number] [place] [address] 2546 Oct, [facility] [address] [id number] [place] [address]- 1626 03 Sep, 2010 [facility] [address] [id number] [place] [address] 2546 Sep, [facility] [address] [id number] [place] [address]- 3201 14 Jul, 2010 [facility] [address] [id number] [place] [address]- 2583 31 Oct, 2009 [facility] [address] [id number] [place] [address]- 1743 Oct, [facility] [address] [id number] [place] [address]- 6023 Oct, [facility] [address] [id number] [place] [address]- 5209 Oct, [facility] [address] [facility] [id number] [place] [address]- 6437 30 Sep, 2009 [facility] [address] [id number] [place] [address] 2546 Sep, [facility] [place] [facility] [address] [id number], [place] [address] 2545 Sep, [facility] [place] [facility] [address] [id number] [place] [address] 2541 04 Sep, 2009 [facility] [place] [facility] [address] [facility] [id number] [place] [address] 2546 03 Sep, 2009 [facility] [place] [facility] [address] [id number], [place] [address]- 4882 Jul, [facility] [address] [facility] [id number] [place] [address]- 3425 Apr, [facility] [address] [facility] [id number] [place] [address]- 4564 12 Dec, 2008 IMMUNIZATIONS No Known Immunizations SOCIAL HISTORY Never Assessed REASON FOR VISIT Returned call PLAN OF CARE VITAL SIGNS MEDICATIONS Unknown Medications RESULTS No Results PROCEDURES No Known procedures INSTRUCTIONS MEDICATIONS ADMINISTERED No Known Medications MEDICAL (GENERAL) HISTORY Type Description Date Medical History hypertension Medical History hyperlipidemia Medical History diabetes type II Medical History COPD Medical History asthma Surgical History hysterectomy Surgical History arthritis surgery Hospitalization History surgeries
--- OUTSIDE RECORDS SUMMARY | 2018-11-26 15:45 | XMS REPORT ---
Author Author KING FISHMAN [facility] Address [address] [place] [address] Care Team Providers Care Senior Property Manager Name Role Phone KING FISHMAN Unavailable PROBLEMS Type Condition ICD9-CM Code [id number] Code Onset Dates Condition Status SNOMED Code Problem Lumbago with sciatica, left side M54.42 Active 431803451 Problem Other chronic pain G89.29 Active 96001622 Problem Lumbago with sciatica, right side M54.41 Active 15560033462032001 Problem Iron deficiency anemia due to chronic blood loss D50.0 Active 208566330 Problem Seizures R56.9 Active 04099873 Problem Chronic obstructive pulmonary disease, unspecified COPD type J44.9 Active 15396557 Problem Pain in right ankle and joints of right foot M25.571 Active 48531083954330 Problem DM 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 Active 86010812 Problem Cigarette nicotine dependence without complication F17.210 Active 46159689 Problem Mixed hyperlipidemia E78.2 Active 449510524 Problem Essential hypertension I10 Active 74664863 Problem Prediabetes R73.03 Active 403715081 Problem Acquired hypothyroidism E03.9 Active 726411466 Problem Reactive depression F32.9 Active 20841288 Problem Gastroesophageal reflux disease, esophagitis presence not specified K21.9 Active 355580757 ALLERGIES Substance Reaction Event Type Date Status Penicillin G Potassium anaphylaxis Drug Allergy Jun, Active Codeine Sulfate anaphylaxis Drug Allergy Jun, Active Aspirin hives Drug Allergy Jun, Active Peanut hives Non Drug Allergy Jun, Active ENCOUNTERS Encounter Location Date Diagnosis [facility] [place] [address] [facility] [id number] [address] Oct, [facility] [place] [address] [facility] [id number], [place] [address] Jul, Onychomycosis B35.1 ; Onychocryptosis L60.0 and DM 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 [facility] [place] [address] [address] Jun, Pain in thoracic spine M54.6 [facility] [place] [address] [address] Jun, Iron deficiency anemia due to chronic blood loss D50.0 and Hematochezia K92.1 [facility] [place] [address] [address] Jun, Gastroenteritis K52.9 and Abnormal RBC indices R71.8 [place] [address] [address] Jun, [place] [address] [address] Jun, Chest congestion R09.89 and Seizures R56.9 [place] [address] [address] May, Pain in thoracic spine M54.6 [facility] [place] [address] [address] May, [facility] [place] [address] [address]- [address] May, [place] [address] [address]- [address] May, [facility] [place] [address] [address] May, Acute non-recurrent frontal sinusitis J01.10 and Dermatitis L30.9 [facility] [place] [address] [address] May, [facility] [place] [address] [address]- [address] May, Pain in thoracic spine M54.6 [facility] [place] [address] [place] [address] 16 May, 2018 [facility] [place] [address] [address] May, Acute nasopharyngitis J00 [facility] [place] [address], [place] [address] May, [facility] [place] [address] [place] [id number] [place] [address]- [address]69 May, [facility] [place] [id number] [place] [address]- 6961 Apr, [facility] [place] [address] [place] [id number] [place] [address]25- 5657 Apr, [facility] [place] [id number] [place] [address]- 1662 Apr, [facility] [place] [address] [place] [id number] [place] [address] 17278- 0610 Apr, [facility] [place] [address] [place] [address]- 4830 Apr, Pain in right ankle and joints of right foot M25.571 [facility] [place] [address] [id number], [place] [address] Apr, [facility] [place] [address] [place] [address]- 5971 Apr, Bronchitis J40 ; Pain in right ankle and joints of right foot M25.571 ; Other chronic pain G89.29 ; Prediabetes R73.03 ; Chronic obstructive pulmonary disease, unspecified COPD type J44.9 and Cigarette nicotine dependence without complication F17.210 [facility] [address] [address] 13 Apr, 2018 Seasonal allergic rhinitis, unspecified trigger J30.2 [facility] [place] [address], [place] [address] 08 Apr, 2018 Onychomycosis B35.1 ; Onychocryptosis L60.0 and DM 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 [place] [address] [place] [id number] [place] [address]- 2728 Apr, Reactive depression F32.9 ; Thoracic myofascial strain, initial encounter S29.019A and Leg cramps R25.2 [place] [address] [address]- [address] March, [place] [address] [address]- [address] March, Type 2 diabetes mellitus with hyperglycemia E11.65 [place] [address] [address]- [address] March, Reactive depression F32.9 [place] [address] [address]- 6380 March, Pain in thoracic spine M54.6 and Other chronic pain G89.29 [place] [address] [address]- [address] Feb, [place] [address] [address]- [address] Jan, Reactive depression F32.9 ; Essential hypertension I10 ; Gastroesophageal reflux disease, esophagitis presence not specified K21.9 ; Lumbago with sciatica, left side M54.42 and Lumbago with sciatica, right side M54.41 [place] [address] [place] [id number] [place] [address]- 6924 Jan, Reactive depression F32.9 and Pharyngoesophageal dysphagia R13.14 [place] [address] [address]- 1868 Jan, [place] [address] [address]- [address] Jan, Encounter for immunization Z23 [place] [address] [address]- 9094 Jan, Onychomycosis B35.1 and DM 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 [place] [address] [place] [id number] [place] [address]- 1938 Jan, [facility] [place] [address] [place] [id number] [place] [address]- 3363 Jan, Prediabetes R73.03 [facility] [place] [address] [address]- 2457 Dec, [facility] [place] [address] [place] [id number] [place] [address] 23[address]- 8109 Dec, Essential hypertension I10 ; Mixed hyperlipidemia E78.2 ; Acquired hypothyroidism E03.9 ; Reactive depression F32.9 and Prediabetes R73.03 [place] [address] [place] [id number] [place] [address] 22466- 4365 Dec, [place] [address] [place] [id number] [place] [address] 8[address]27- 4141 Dec, [place] [address] [place] [id number] [place] [address] 46544- 3701 Dec, DM 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 [facility] [address] [place] [id number] [place] [address] -1359 Dec, Bruise T14.8XXA ; Type 2 diabetes mellitus with hyperglycemia E11.65 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 [place] [address] [place] [id number] [place] [address] 12559- 4226 Oct, [place] [address] [place] [id number] [place] [address] 37825- 8110 March, Onychomycosis B35.1 and DM 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 [place] [address] [place] [id number] [place] [address] 15298- 0688 Jun, [facility] [place] [address] [place] [id number] [place] [address]33- 2848 Jun, [facility] [address] [id number] [place] [address]- 5763 Jun, COPD with acute exacerbation 491.21 [facility] [address] [id number] [place] [address]- 2000 15 Apr, [address] [facility] [address] [id number] [place] [address]- 9523 14 Feb, [address] [facility] [address] [id number] [place] [address]- 8132 Feb, [facility] [address] [id number] [place] [address]- 6986 Jan, [facility] [address] [id number] [place] [address]- 0000 Jan, [facility] [address] [id number] [place] [address]- 7505 Jan, [facility] [address] [id number] [place] [address]- 2212 Jan, [facility] [address] [id number] [place] [address]- 5979 Jan, [facility] [address] [id number] [place] [address]- 4754 Jan, [facility] [address] [id number] [place] [address]- 5126 Jan, [facility] [address] [id number] [place] [address]- 9508 Jan, [facility] [address] [id number] [place] [address]- 9542 Jan, [facility] [address] [id number] [place] [address]- 6053 Jan, [facility] [address] [id number] [place] [address]- 7503 Jan, [facility] [place] [facility] [address] [id number] [place] [address]- 9833 18 Jan, 2015 [facility] [place] [facility] [address] [id number] [place] [address]- 4069 18 Jan, 2015 [facility] [place] [facility] [address] [id number] [place] [address]- 1378 16 Jan, 2015 [facility] [place] [facility] [address] [id number] [place] [address]- 8379 16 Jan, 2014 [facility] [place] [facility] [address] [id number] [place] [address]- 2466 16 Jan, 2015 [facility] [place] [facility] [address] [id number] [place] [address]- 4544 16 Jan, 2015 [facility] [place] [facility] [address] [id number] [place] [address]- 6811 15 Jan, 2015 [facility] [place] [facility] [address] [id number] [place] [address]- 3316 13 Jan, 2015 [facility] [place] [facility] [address] [id number] [place] [address]- 1118 13 Jan, 2015 [facility] [place] [facility] [address] [id number] [place] [address]- 6796 13 Jan, 2015 [facility] [place] [facility] [address] [id number] [place] [address]- 6285 13 Jan, 2015 [facility] [place] [facility] [address] [id number], [place] [address]- 2866 12 Jan, 2015 [facility] [place] [facility] [address] [id number] [place] [address]- 6045 04 Jan, 2015 [facility] [place] [facility] [address] [id number] [place] [address]- 7481 04 Jan, 2015 [facility] [place] [facility] [address] [id number], [place] [address]- 5216 24 Dec, 2014 [facility] [place] [facility] [address] [id number], [place] [address]- 5165 Dec, 2014 [facility] [place] [facility] [address] [id number] [place] [address]- 7456 Dec, 2014 [facility] [place] [facility] [address] [id number] [place] [address]- 1196 Dec, 2014 [facility] [place] [facility] [address] [facility] [id number] [place] [address]- 9906 Dec, 2014 [facility] [place] [facility] [address] [id number] [place] [address]- 4305 Dec, 2014 [facility] [place] [facility] [address] [id number] [place] [address]- 1793 Dec, 2014 [facility] [place] [facility] [address] [facility] [id number] [place] [address]- 8346 Dec, 2014 [facility] [place] [facility] [address] [place] [id number] [place] [address]- 2880 Dec, 2014 [facility] [place] [facility] [address] [facility] [id number] [place] [address]- 7998 Dec, [facility] [place] [facility] [address] [place] [id number] [place] [address]- 6106 Dec, [facility] [place] [facility] [address] [facility] [id number] [place] [address]- 5808 Dec, [facility] [place] [facility] [address] [facility] [id number] [place] [address]- 2761 Nov, [facility] [place] [facility] [address] [id number] [place] [address]- 6399 Nov, [facility] [place] [facility] [address] [facility] [id number] [place] [address]- 0874 Nov, [facility] [place] [facility] [address] [facility] [id number] [place] [address]- 9356 Nov, [facility] [place] [facility] [address] [facility] [id number] [place] [address]- 1454 Nov, [facility] [place] [facility] [address] [id number] [place] [address]- 1026 Nov, [facility] [place] [facility] [address] [id number] [place] [address]- 7937 Nov, [facility] [place] [facility] [address] [id number] [place] [address]- 4618 Nov, [facility] [place] [facility] [address] [id number] [place] [address]- 6458 Nov, [facility] [place] [facility] [address] [id number] [place] [address]- 9782 Nov, [facility] [place] [facility] [address] [id number] [place] [address]- 5764 Nov, [facility] [place] [facility] [address] [id number] [place] [address]- 0128 Nov, [facility] [place] [facility] [address] [id number] [place] [address]- 4182 Oct, [facility] [place] [facility] [address] [id number] [place] [address]- 1402 Oct, [facility] [place] [facility] [address] [id number] [place] [address]- 3694 Oct, [facility] [place] [facility] [address] [id number] [place] [address]- 8105 Oct, [facility] [place] [facility] [address] [id number], [place] [address]- 9109 Oct, [facility] [place] [facility] [address] [id number] [place] [address]- 3343 Oct, [facility] [place] [facility] [address] [id number] [place] [address]- 3430 Oct, [facility] [place] [facility] [address] [id number] [place] [address]- 0194 Oct, [facility] [place] [facility] [address] [id number] [place] [address]- 6902 17 Oct, 2014 [facility] [place] [facility] [address] [id number] [place] [address]- 0509 17 Oct, 2014 [facility] [place] [facility] [address] [id number] [place] [address]- 0693 16 Oct, 2014 [facility] [place] [facility] [address] [id number] [place] [address]- 7680 16 Oct, 2014 [facility] [place] [facility] [address] [id number] [place] [address]- 4828 15 Oct, 2014 [facility] [place] [facility] [address] [id number] [place] [address]- 2749 15 Oct, 2014 [facility] [place] [facility] [address] [id number] [place] [address]- 5195 Oct, [facility] [place] [facility] [address] [id number] [place] [address]- 0749 Sep, [facility] [place] [facility] [address] [id number] [place] [address]- 2143 Sep, [facility] [place] [facility] [address] [id number] [place] [address]- 4761 Sep, [facility] [place] [facility] [address] [facility] [id number] [place] [address]- 8437 Sep, [facility] [place] [facility] [address] [id number] [place] [address]- 6182 Aug, [facility] [place] [facility] [address] [id number] [place] [address]- 4836 Aug, [facility] [place] [facility] [address] [id number] [place] [address]- 7168 Aug, [facility] [place] [facility] [address] [id number] [place] [address]- 9898 Aug, [facility] [place] [facility] [address] [id number], [place] [address]- 9510 Aug, [facility] [place] [facility] [address] [id number] [place] [address]- 9038 Aug, [facility] [place] [facility] [address] [id number] [place] [address]- 3385 29 Jul, 2014 [facility] [place] [facility] [address] [id number] [place] [address]- 4808 29 Jul, 2014 [facility] [place] [facility] [address] [id number] [place] [address]- 2544 15 Jul, 2014 [facility] [place] [facility] [address] [id number] [place] [address]- 9858 15 Jul, 2014 [facility] [place] [facility] [address] [id number] [place] [address]- 9070 08 Jul, 2014 [facility] [place] [facility] [address] [id number] [place] [address]- 6398 Jul, [facility] [place] [facility] [address] [id number] [place] [address]- 3521 Jun, [facility] [place] [facility] [address] [id number] [place] [address]- 8815 Jun, [facility] [place] [facility] [address] [id number] [place] [address]- 4123 Jun, [facility] [place] [facility] [address] [id number] [place] [address]- 2452 Jun, [facility] [place] [facility] [address] [id number] [place] [address]- 6148 Jun, [facility] [place] [facility] [address] [id number] [place] [address]- 9064 Jun, [facility] [place] [facility] [address] [id number] [place] [address]- 2359 Jun, [facility] [place] [facility] [address] [id number] [place] [address]- 2987 May, [facility] [place] [facility] [address] [id number] [place] [address]- 1146 May, [facility] [place] [facility] [address] [id number] [place] [address]- 4408 May, [facility] [place] [facility] [address] [id number] [place] [address]- 6675 May, [facility] [place] [facility] [address] [id number] [place] [address]- 2232 May, [facility] [place] [facility] [address] [id number] [place] [address]- 8968 May, 2013 [facility] [place] [facility] [address] [id number] [place] [address]- 5728 May, [facility] [place] [facility] [address] [id number] [place] [address]- 3681 May, [facility] [place] [facility] [address] [id number] [place] [address]- 0294 May, [facility] [place] [facility] [address] [id number] [place] [address]- 9793 May, [facility] [place] [facility] [address] [id number] [place] [address]- 2055 May, [facility] [place] [facility] [address] [id number] [place] [address]- 5705 May, [facility] [place] [facility] [address] [id number] [place] [address]- 8930 Apr, [facility] [place] [facility] [address] [id number] [place] [address]- 9982 Apr, [facility] [place] [facility] [address] [id number] [place] [address]- 1928 Apr, [facility] [place] [facility] [address] [id number] [place] [address]- 5939 Apr, [facility] [place] [facility] [address] [id number] [place] [address]- 3172 Apr, [facility] [place] [facility] [address] [id number] [place] [address]- 5018 Apr, [facility] [address] [id number] [place] [address]- 3885 Apr, [facility] [place] [facility] [address] [id number] [place] [address]- 0453 Apr, [facility] [address] [id number] [place] [address] Apr, [facility] [place] [facility] [address] [id number] [place] [address] Apr, [facility] [place] [facility] [address] [id number] [place] [address] March, [facility] [place] [facility] [address] [id number] [place] [address] March, [facility] [place] [facility] [address] [id number] [place] [address] March, [facility] [address] [id number] [place] [address] March, [facility] [place] [facility] [address] [id number] [place] [address] March, [facility] [address] [id number] [place] [address] March, [facility] [place] [facility] [address] [id number] [place] [address] Feb, [facility] [place] [facility] [address] [id number] [place] [address] Feb, [facility] [place] [facility] [address] [id number] [place] [address] Feb, [facility] [place] [facility] [address] [id number] [place] [address] Feb, [facility] [place] [facility] [address] [id number] [place] [address] Feb, [facility] [place] [facility] [address] [id number] [place] [address]- [address] Feb, [facility] [place] [facility] [address] [id number] [place] [address] Feb, [facility] [place] [facility] [address] [id number] [place] [address] Feb, [facility] [place] [facility] [address] [id number] [place] [address]- [address] Feb, [facility] [place] [facility] [address] [id number] [place] [address]- [address] Feb, [facility] [place] [facility] [address] [id number] [place] [address] Jan, [facility] [place] [facility] [address] [id number] [place] [address] Jan, [facility] [place] [facility] [address] [id number] [place] [address] Jan, [facility] [place] [facility] [address] [id number] [place] [address] Jan, [facility] [place] [facility] [address] [id number] [place] [address] Jan, [facility] [place] [facility] [address] [id number] [place] [address] Jan, [facility] [place] [facility] [address] [id number] [place] [address] Jan, [facility] [place] [facility] [address] [id number] [place] [address] Jan, [facility] [place] [facility] [address] [id number] [place] [address] Dec, [facility] [place] [facility] [address] [id number] [place] [address] Dec, [facility] [place] [facility] [address] [id number] [place] [address] Dec, [facility] [place] [facility] [address] [id number] [place] [address] Dec, [facility] [place] [facility] [address] [id number] [place] [address] Dec, [facility] [place] [facility] [address] [id number] [place] [address] Dec, [facility] [place] [facility] [address] [id number] [place] [address] Dec, [facility] [place] [facility] [address] [id number] [place] [address] Dec, [facility] [place] [facility] [address] [id number] [place] [address] Nov, [facility] [place] [facility] [address] [id number] [place] [address] Nov, [facility] [place] [facility] [address] [id number] [place] [address] Nov, [facility] [place] [facility] [address] [id number] [place] [address]- [address] Nov, [facility] [place] [facility] [address] [id number] [place] [address] Nov, [facility] [place] [facility] [address] [id number] [place] [address] Nov, [facility] [place] [facility] [address] [id number] [place] [address] Nov, [facility] [place] [facility] [address] [id number] [place] [address]- [address] Nov, [facility] [place] [facility] [address] [id number] [place] [address] Nov, [facility] [place] [facility] [address] [id number] [place] [address]- [address] Nov, [facility] [address] [id number] [place] [address] Nov, [facility] [place] [facility] [address] [id number] [place] [address] Oct, [facility] [place] [facility] [address] [id number] [place] [address] Oct, [facility] [place] [facility] [address] [id number] [place] [address]- [address] Oct, [facility] [place] [facility] [address] [id number] [place] [address]- [address] Oct, [facility] [place] [facility] [address] [id number] [place] [address] Sep, [facility] [place] [facility] [address] [id number] [place] [address]- [address] Sep, [facility] [place] [facility] [address] [id number], [place] [address] Sep, [facility] [place] [facility] [address] [id number] [place] [address] Sep, [facility] [place] [facility] [address] [id number], [place] [address] Aug, [facility] [place] [facility] [address] [id number], [place] [address] Aug, [facility] [place] [facility] [address] [address] [id number], [place] [address] Aug, [facility] [place] [facility] [address] [id number], [place] [address] Aug, [facility] [place] [facility] [address] [id number], [place] [address] Aug, [facility] [place] [facility] [address] [id number], [place] [address] 8[address] Aug, [facility] [place] [facility] [address] [id number], [place] [address] 5660 04 Aug, 2013 [facility] [address] [id number] [place] [address] 6833 Aug, [facility] [place] [facility] [address] [id number] [place] [address]- 5165 28 Jul, 2012 [facility] [address] [id number] [place] [address]- 9402 27 Jul, 2012 [facility] [place] [facility] [address] [id number] [place] [address]- 1360 26 Jul, 2012 [facility] [address] [id number] [place] [address]- 2135 24 Jul, 2012 [facility] [place] [facility] [address] [id number] [place] [address]- 6513 24 Jul, 2012 [facility] [address] [id number] [place] [address]- 9028 23 Jul, 2012 [facility] [place] [facility] [address] [id number] [place] [address]- 5246 19 Jul, 2012 [facility] [place] [facility] [address] [id number] [place] [address]- 2749 18 Jul, 2012 [facility] [place] [facility] [address] [id number] [place] [address]- 9588 17 Jul, 2012 [facility] [place] [facility] [address] [id number], [place] [address]- 2345 16 Sep, 2012 [facility] [place] [facility] [address] [id number], [place] [address] 2545 13 Jul, 2012 [facility] [place] [facility] [address] [id number] [place] [address] 2540 13 Jul, 2012 [facility] [place] [facility] [address] [id number] [place] [address]- 2544 12 Jul, 2012 [facility] [place] [facility] [address] [id number] [place] [address]- 8173 11 Jul, 2012 [facility] [place] [facility] [address] [id number] [place] [address]- 2546 Jul, [facility] [address] [id number] [place] [address]- 1063 Jun, [facility] [place] [facility] [address] [id number] [place] [address]- 2546 Jun, [facility] [place] [facility] [address] [id number] [place] [address]- 1006 Jun, [facility] [place] [facility] [address] [id number] [place] [address]- 5971 May, [facility] [place] [facility] [address] [id number] [place] [address]- 7068 May, [facility] [place] [facility] [address] [id number] [place] [address]- 1236 May, [facility] [place] [facility] [address] [id number] [place] [address]- 7337 May, [facility] [place] [facility] [address] [id number] [place] [address]- 8777 Apr, [facility] [place] [facility] [address] [id number] [place] [address]- 6809 Apr, [facility] [place] [facility] [address] [id number] [place] [address]- 6535 Apr, [facility] [place] [facility] [address] [id number] [place] [address]- 8454 Apr, [facility] [place] [facility] [address] [id number] [place] [address]- 0374 March, [facility] [place] [facility] [address] [id number] [place] [address]- 7846 March, [facility] [place] [facility] [address] [id number] [place] [address]- 2546 March, [facility] [place] [facility] [address] [id number] [place] [address]- 4000 Feb, [facility] [place] [facility] [address] [id number] [place] [address] Feb, [facility] [place] [facility] [address] [id number] [place] [address]- 9725 Jan, [facility] [place] [facility] [address] [facility] [id number] [place] [address]- 4836 Jan, [facility] [place] [facility] [address] [id number] [place] [address]- 8347 Jan, [facility] [place] [facility] [address] [id number] [place] [address]- 3971 Jan, [facility] [place] [facility] [address] [id number] [place] [address]- 8368 Jan, [facility] [place] [facility] [id number] [place] [address]- 9036 Dec, [facility] [place] [facility] [address] [facility] [id number] [place] [address]- 6273 Dec, [facility] [place] [facility] [address] [facility] [id number] [place] [address]- 4103 Dec, [facility] [place] [facility] [address] [facility] [id number] [place] [address]- 6528 Dec, [facility] [place] [facility] [id number] [place] [address]- 9821 Dec, [facility] [place] [facility] [address] [facility] [id number] [place] [address]- 7229 Dec, [facility] [place] [facility] [address] [facility] [id number] [place] [address]- 1250 Dec, [facility] [place] [facility] [address] [facility] [id number] [place] [address]- 1628 Dec, [facility] [place] [facility] [address] [facility] [id number] [place] [address]- 3644 Nov, [facility] [place] [facility] [address] [id number] [place] [address]- 9074 Nov, [facility] [address] [id number] [place] [address]- 3237 Nov, [facility] [place] [facility] [address] [id number] [place] [address]- 7106 Nov, [facility] [address] [id number] [place] [address]- 9271 Nov, [facility] [place] [facility] [address] [id number] [place] [address]- 9907 Nov, [facility] [place] [facility] [address] [id number] [place] [address]- 8068 Nov, [facility] [place] [facility] [address] [id number] [place] [address]- 5171 Oct, [facility] [place] [facility] [address] [id number] [place] [address]- 8790 Oct, [facility] [address] [id number] [place] [address]- 2410 Oct, [facility] [place] [facility] [address] [id number] [place] [address]- 9928 Oct, [facility] [place] [facility] [address] [id number] [place] [address]77 Oct, [facility] [place] [facility] [address] [id number] [place] [address]- 4831 Oct, [facility] [place] [facility] [address] [id number] [place] [address]- 3479 Oct, [facility] [place] [facility] [address] [id number] [place] [address]- 9366 Oct, [facility] [place] [facility] [address] [id number] [place] [address]- 1424 Sep, [facility] [place] [facility] [address] [id number] [place] [address]- 0353 Sep, [facility] [place] [facility] [address] [id number] [place] [address]- 8896 Sep, [facility] [place] [facility] [address] [id number] [place] [address]- 9340 Sep, [facility] [place] [facility] [address] [id number] [place] [address]- 9684 Sep, [facility] [place] [facility] [address] [id number] [place] [address]- 3698 Sep, [facility] [place] [facility] [address] [id number] [place] [address]- 5270 Sep, [facility] [place] [facility] [address] [id number] [place] [address]- 5702 Sep, [facility] [place] [facility] [address] [id number] [place] [address]- 2480 Sep, [facility] [place] [facility] [address] [id number] [place] [address]- 4606 Sep, [facility] [place] [facility] [address] [id number] [place] [address]- 5596 Sep, [facility] [place] [facility] [address] [id number] [place] [address]- 8172 Sep, [facility] [place] [facility] [address] [id number], [place] [address]- 0949 Sep, [facility] [place] [facility] [address] [id number], [place] [address]- 8601 Sep, [facility] [place] [facility] [address] [id number] [place] [address]- 2596 Sep, [facility] [place] [facility] [address] [id number], [place] [address]- 2255 Sep, [facility] [place] [facility] [address] [id number], [place] [address]- 2831 Sep, [facility] [place] [facility] [address] [id number] [place] [address]30 02 Sep, 2012 [facility] [place] [facility] [address] [id number] [place] [address]- 5471 02 Sep, 2012 [facility] [place] [facility] [address] [id number] [place] [address]170 Sep, [facility] [place] [facility] [address] [id number] [place] [address]- 0448 31 Aug, 2011 [facility] [place] [facility] [address] [id number] [place] [address]- 3719 31 Aug, 2012 [facility] [place] [facility] [address] [id number] [place] [address]- 9149 29 Aug, 2012 [facility] [place] [facility] [address] [id number] [place] [address]- 4240 Aug, [facility] [place] [facility] [address] [id number] [place] [address]- 2711 27 Aug, 2012 [facility] [place] [facility] [address] [id number] [place] [address]- 9568 18 Aug, 2012 [facility] [place] [facility] [address] [id number] [place] [address]- 2786 18 Aug, 2012 [facility] [place] [facility] [address] [facility] [id number] [place] [address]- 3111 17 Aug, 2012 [facility] [place] [facility] [address] [facility] [id number] [place] [address]- 0425 16 Aug, 2012 [facility] [place] [facility] [address] [id number], [place] [address]- 5924 16 Aug, 2012 [facility] [place] [facility] [address] [id number] [place] [address]- 1306 15 Aug, 2012 [facility] [place] [facility] [address] [facility] [id number] [place] [address]- 7453 09 Aug, 2012 [facility] [place] [facility] [address] [facility] [id number], [place] [address]- 8639 05 Aug, 2012 [facility] [place] [facility] [address] [id number] [place] [address]- 0031 Aug, [facility] [place] [facility] [address] [id number] [place] [address]- 3813 Aug, [facility] [place] [facility] [address] [id number] [place] [address]- 2760 14 Jul, 2012 [facility] [place] [facility] [address] [id number] [place] [address]- 2755 Jul, [facility] [place] [facility] [address] [id number] [place] [address]- 4316 Jun, [facility] [place] [facility] [address] [id number] [place] [address]- 5624 Jun, [facility] [place] [facility] [address] [id number] [place] [address]- 3300 May, [facility] [place] [facility] [address] [id number] [place] [address]- 5543 May, [facility] [place] [facility] [address] [id number] [place] [address]- 0438 May, [facility] [place] [facility] [address] [id number] [place] [address]- 8403 May, [facility] [place] [facility] [address] [id number] [place] [address]- 0696 May, [facility] [place] [facility] [address] [id number] [place] [address]- 9842 May, [facility] [place] [facility] [address] [id number] [place] [address]- 9033 Apr, [facility] [place] [facility] [address] [id number] [place] [address]- 1637 Apr, [facility] [place] [facility] [address] [id number] [place] [address]- 0885 March, [facility] [place] [facility] [address] [id number] [place] [address]- 3919 March, [facility] [address] [id number] [place] [address]- 9133 March, [facility] [place] [facility] [address] [id number] [place] [address]- 9938 March, [facility] [place] [facility] [address] [id number] [place] [address]- 2516 March, [facility] [place] [facility] [address] [id number] [place] [address]- [address] March, [facility] [address] [id number] [place] [address]- 4794 Feb, [facility] [place] [facility] [address] [id number] [place] [address]- 8237 Feb, [facility] [place] [facility] [address] [id number] [place] [address]- 9116 Feb, [facility] [place] [facility] [address] [id number] [place] [address]- 5537 Feb, [facility] [place] [facility] [address] [id number] [place] [address]- 6879 Feb, [facility] [place] [facility] [address] [id number] [place] [address]- 7120 Feb, [facility] [place] [facility] [address] [id number] [place] [address]- 3217 Feb, [facility] [place] [facility] [address] [id number] [place] [address]- 8073 Feb, [facility] [place] [facility] [address] [id number] [place] [address]- 9291 Feb, [facility] [place] [facility] [address] [id number] [place] [address]366 30 Jan, 2012 [facility] [place] [facility] [address] [id number] [place] [address]- 2351 Jan, [facility] [place] [facility] [address] [id number] [place] [address]- 5019 26 Jan, [address] [facility] [address] [id number] [place] [address]- 2096 22 Jan, [address] [facility] [address] [id number] [place] [address]- 6836 21 Jan, [address] [facility] [address] [id number] [place] [address]- 3826 20 Jan, 2012 [facility] [address] [id number] [place] [address]- 8121 14 Jan, [address] [facility] [address] [id number] [place] [address]- 3667 09 Jan, 2012 [facility] [address] [id number] [place] [address]- 2146 09 Jan, [address] [facility] [address] [id number] [place] [address]- 0549 08 Jan, [address] [facility] [address] [id number] [place] [address]- 7552 07 Jan, [address] [facility] [address] [id number] [place] [address]- 7835 06 Jan, 2012 [facility] [address] [id number] [place] [address]- 3530 02 Jan, 2012 [facility] [place] [facility] [address] [id number] [place] [address]- 8996 Jan, [facility] [address] [id number] [place] [address]- 1336 Dec, [facility] [place] [facility] [address] [id number] [place] [address]- 6146 27 Dec, 2011 [facility] [address] [id number] [place] [address]- 1236 Dec, [facility] [place] [facility] [address] [id number] [place] [address]- 2052 Dec, [facility] [place] [facility] [address] [id number] [place] [address]- 9482 16 Dec, 2011 [facility] [place] [facility] [address] [id number] [place] [address]- 3506 08 Dec, 2011 [facility] [place] [facility] [address] [id number] [place] 1746 Dec, [facility] [place] [facility] [address] [id number] [place] [address]- 8943 Dec, [facility] [place] [facility] [address] [id number] [place] [address]- 1555 Dec, [facility] [place] [facility] [address] [id number] [place] [address]- 5171 Nov, [facility] [place] [facility] [address] [id number] [place] [address]- 0838 Nov, [facility] [place] [facility] [address] [id number] [place] [address]- 1744 Nov, [facility] [place] [facility] [address] [id number] [place] [address]- 3059 Nov, [facility] [place] [facility] [address] [id number] [place] [address]- 7938 Oct, [facility] [place] [facility] [address] [id number] [place] [address]- 9302 Oct, [facility] [place] [facility] [address] [id number] [place] [address]- 6842 Oct, [facility] [place] [facility] [address] [id number] [place] [address]- 6864 Oct, [facility] [place] [facility] [address] [id number] [place] [address]- 5928 Oct, [facility] [place] [facility] [address] [id number] [place] [address]- 2015 Oct, [facility] [place] [facility] [address] [id number] [place] [address]- 3918 Oct, [facility] [place] [facility] [address] [id number] [place] [address]- 0699 Sep, [facility] [place] [facility] [address] [id number] [place] [address]- 5693 Sep, [facility] [place] [facility] [address] [id number] [place] [address]- 4761 Sep, [facility] [place] [facility] [address] [id number] [place] [address]- 6709 Sep, [facility] [place] [facility] [address] [id number] [place] [address], [place] [address]- 3780 Sep, [facility] [place] [facility] [address] [id number] [place] [address]- 7502 Sep, [facility] [place] [facility] [address] [id number] [place] [address]- 0586 Sep, [facility] [place] [facility] [address] [id number] [place] [address]- 0046 Sep, [facility] [place] [facility] [address] [id number] [place] [address]- 1423 Sep, [facility] [place] [facility] [address] [id number] [place] [address]- 3880 Aug, [facility] [place] [facility] [address] [id number] [place] [address]- 0851 Aug, [facility] [place] [facility] [address] [id number] [place] [address]- 6515 Aug, [facility] [place] [facility] [address] [id number] [place] [address]- 1467 May, [facility] [place] [facility] [address] [id number] [place] [address]- 5914 Nov, [facility] [place] [facility] [address] [id number] [place] [address]- 5406 Oct, [facility] [address] [id number] [place] [address]- 4734 Oct, [facility] [place] [facility] [address] [id number] [place] [address]- 9776 Oct, [facility] [place] [facility] [address] [id number] [place] [address]- 6617 Oct, [facility] [place] [facility] [address] [id number] [place] [address]- 7116 Oct, [facility] [place] [facility] [address] [id number] [place] [address]- 2461 Sep, [facility] [place] [facility] [address] [id number] [place] [address]- 5718 Sep, [facility] [place] [facility] [address] [id number] [place] [address]- 7058 Jul, [facility] [place] [facility] [address] [id number], [place] [address]- 2245 Oct, [facility] [place] [facility] [address] [id number], [place] [address]- 4447 Oct, [facility] [place] [facility] [address] [facility] [id number], [place] [address] Oct, [facility] [place] [facility] [address] [id number], [place] [address] Oct, [facility] [place] [facility] [address] [id number], [place] [address] Sep, [facility] [place] [facility] [address] [id number], [place] [address] Sep, [facility] [place] [facility] [address] [id number], [place] [address] Sep, [facility] [place] [facility] [address] [facility] [id number], [place] [address] Sep, [facility] [place] [facility] [address] [id number], [place] [address] Sep, [facility] [place] [address] [facility] [id number], [place] [address] Jul, [facility] [place] [address] [facility] [id number], [place] [address] Apr, [place] [id number] [facility] [id number], [place] [address] Dec, IMMUNIZATIONS No Known Immunizations SOCIAL HISTORY Never Assessed REASON FOR VISIT Congestion - GIOVANI Villarreal, Quit smoking on 06/27/18 PLAN OF CARE Activity Details Follow Up Rpoutine appt Reason: VITAL SIGNS Height 67 in 2018-07-08 Weight 194.2 lbs 2018-07-08 Temperature 97.5 degrees Fahrenheit 2018-07-08 Heart Rate 74 bpm 2018-07-08 Respiratory Rate 24 2018-07-08 Oximetry on room air:97 % 2018-07-08 BMI 30.41 kg/m2 2018-07-08 Blood pressure systolic 130 mmHg 2018-07-08 Blood pressure diastolic 78 mmHg 2018-07-08 MEDICATIONS Medication Instructions Dosage Frequency Start Date End Date Duration Status Protonix 40 MG Orally Once a day 1 tablet 24h 30 Active SudoGest 60 mg Orally every 6 hrs 1 tablet as needed 6h 24 May, 2018 07 days Active Gabapentin 600 MG Orally Once a day 1 capsule before bedtime 24h Active Naprosyn 500 mg Orally 2 times a day 1 tablet with food or milk as needed 12h 30 Active Chantix 1 MG Orally Twice a day 1/2 tablet once daily for 3 days then 1/2 tab 2 times daily x 3 days then one tab 12h May, Active Lisinopril 5 MG Orally Once a day 1 tablet 24h Active Test strips Test Strips subcutaneously 2 times a day, accucheck christiano 1 test strip Dec, Active ProAir HFA 90 mcg/actuation inhale 2 puffs by Inhalation route every 4 hours as needed PRN shortness of breath/cough March, Active Levothyroxine Sodium 50 MCG TAKE ONE TABLET BY MOUTH DAILY 90 Active Flonase 50 MCG/ACT Nasally twice a day 1 spray in each nostril 12h 13 Apr, 2018 30 day(s) Active Trazodone HCl 100 mg Orally Once a day 1 tablet at bedtime 24h Apr, 30 day(s) Active Tramadol HCl 50 mg Orally 3 times a day 1 tablet as needed 8h March, Active Gabapentin 300 MG TAKE TWO CAPSULES BY MOUTH THREE TIMES A DAY 90 Active Amlodipine Besylate 5 MG Orally Once a day 1 tablet 24h Active Metformin HCl 500 mg Orally Twice a day 1 tablet with meals 12h 30 days Active DiphenhydrAMINE HCl 25 MG Orally every 6 hrs, prn itching 1-2 tabs May Active Prozac 40 mg Orally Once a day 1 capsule 24h 30 Active Oxygen 2 L/NC by inhalation route at bedtime Active Cyclobenzaprine HCl 10 mg Orally Three times a day 1 tablet as needed 8h 10 Active Atorvastatin Calcium 40 MG TAKE ONE TABLET BY MOUTH DAILY 90 Active RESULTS Name Result Date Reference Range Xray : Chest 2 View (IN HOUSE) 2018-07-08 CBC 2018-07-08 WHITE BLOOD CELL COUNT 9.8 3.8-10.8 RED BLOOD CELL COUNT 4.84 3.80-5.10 HEMOGLOBIN 10.6 11.7-15.5 HEMATOCRIT 35.5 35.0-45.0 MCV 73.3 80.0-100.0 MCH 21.9 27.0-33.0 MCHC 29.9 32.0-36.0 RDW 18.6 11.0-15.0 PLATELET COUNT 324 140-400 MPV 11.9 7.5-12.5 ABSOLUTE NEUTROPHILS 4890 [id number] ABSOLUTE LYMPHOCYTES 3685 850-3900 ABSOLUTE MONOCYTES 970 200-950 ABSOLUTE EOSINOPHILS 206 15-500 ABSOLUTE BASOPHILS 49 0-200 NEUTROPHILS 49.9 LYMPHOCYTES 37.6 MONOCYTES 9.9 EOSINOPHILS 2.1 BASOPHILS 0.5 PROCEDURES Procedure Date Ordered Result Body Site LAB NOT BILLED BY [facility] Jul 08, 2018 X-RAY EXAM CHEST 2 VIEWS Jul 08, 2018 VENIPUNCT, ROUTINE* Jul 08, 2018 INSTRUCTIONS MEDICATIONS ADMINISTERED No Known Medications MEDICAL (GENERAL) HISTORY Type Description Date Medical History hypertension Medical History hyperlipidemia Medical History diabetes type II Medical History COPD Medical History asthma Surgical History hysterectomy Surgical History arthritis surgery Hospitalization History surgeries
--- OUTSIDE RECORDS SUMMARY | 2018-11-26 15:46 | XMS REPORT ---
Author Author KING FISHMAN Organization [facility] Address [address] [place] [address] Care Team Providers Care Under Sheriff Name Role Phone KING FISHMAN Unavailable PROBLEMS Type Condition ICD9-CM Code BTQ87-KN Code Onset Dates Condition Status SNOMED Code Problem Lumbago with sciatica, left side M54.42 Active 605901206 Problem Other chronic pain G89.29 Active 24930846 Problem Lumbago with sciatica, right side M54.41 Active [id number] Problem Iron deficiency anemia due to chronic blood loss D50.0 Active 466529574 Problem Seizures R56.9 Active 58548470 Problem Chronic obstructive pulmonary disease, unspecified COPD type J44.9 Active 58351507 Problem Pain in right ankle and joints of right foot M25.571 Active 05314561938118 Problem DM 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 Active 80024649 Problem Cigarette nicotine dependence without complication F17.210 Active 53814197 Problem Mixed hyperlipidemia E78.2 Active 749373736 Problem Essential hypertension I10 Active 72952459 Problem Prediabetes R73.03 Active 624678881 Problem Acquired hypothyroidism E03.9 Active 742013963 Problem Reactive depression F32.9 Active 25848732 Problem Gastroesophageal reflux disease, esophagitis presence not specified K21.9 Active 338926964 ALLERGIES No Information ENCOUNTERS Encounter Location Date Diagnosis [facility] [address] [facility] [id number] [address] Oct, [facility] [id number] [place] [address] 23858- 8796 Jul, Onychomycosis B35.1 ; Onychocryptosis L60.0 and DM 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 [facility] [address] [facility] [id number], [place] [address] Jun, Pain in thoracic spine M54.6 [facility] [id number] [place] [address] 85700- 8338 Jun, Iron deficiency anemia due to chronic blood loss D50.0 and Hematochezia K92.1 [facility] [id number] [place] [address] 07507- 8016 Jun, Gastroenteritis K52.9 and Abnormal RBC indices R71.8 [facility] [address] [address]- 3805 Jun, [facility] [address] [address]- 0249 Jun, Chest congestion R09.89 and Seizures R56.9 [facility] [address] [address]86- 0019 May, Pain in thoracic spine M54.6 [facility] [id number] [place] [address] 84620- 1443 May, [facility] [id number] [place] [address] 44455- 8874 May, [facility] [id number] [place] [address] 69835- 0060 May, [facility] [id number] [place] [address] 92605- 8831 May, Acute non-recurrent frontal sinusitis J01.10 and Dermatitis L30.9 [facility] [id number] [place] [address] 28094 2542 May, [facility] [id number] [place] [address] 70896- 8429 May, Pain in thoracic spine M54.6 [facility] [id number] [place] [address] 13988- 1956 May, [facility] [id number] [place] [address] 50033- 0418 May, Acute nasopharyngitis J00 [facility] [address] [address] 8847 May, [facility] [address] [place] [address] 70009- 4506 May, [facility] [id number] [place] [address] 07155- 6580 Apr, [facility] [id number] [place] [address] 36769- 3379 Apr, [facility] [address] [place] [address] 23288- 0309 Apr, [facility] [id number] [place] [address] 98087- 3882 Apr, [facility] [id number] [place] [address] 33047- 4687 Apr, Pain in right ankle and joints of right foot M25.571 [facility] [id number] [place] [address] 75772- 5181 Apr, [facility] [id number] [place] [address] 41046- 3380 Apr, Bronchitis J40 ; Pain in right ankle and joints of right foot M25.571 ; Other chronic pain G89.29 ; Prediabetes R73.03 ; Chronic obstructive pulmonary disease, unspecified COPD type J44.9 and Cigarette nicotine dependence without complication F17.210 [facility] [address], [place] [address] 13 Apr, 2018 Seasonal allergic rhinitis, unspecified trigger J30.2 [facility] [id number] [place] [address] 21730- 5652 08 Apr, 2018 Onychomycosis B35.1 ; Onychocryptosis L60.0 and DM 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 [facility] [id number] [place] [address] 61710- 0336 Apr, Reactive depression F32.9 ; Thoracic myofascial strain, initial encounter S29.019A and Leg cramps R25.2 [place] [address] 41897- 0698 March, [place] [address] 77521- 0070 March, Type 2 diabetes mellitus with hyperglycemia E11.65 [facility] [address] 17523- 0449 March, Reactive depression F32.[address] 38994- 5494 March, Pain in thoracic spine M54.6 and Other chronic pain G89.29 [place] [address] 73361- 9006 Feb, [place] [facility] [address] 00928- 1782 Jan, Reactive depression F32.9 ; Essential hypertension I10 ; Gastroesophageal reflux disease, esophagitis presence not specified K21.9 ; Lumbago with sciatica, left side M54.42 and Lumbago with sciatica, right side M54.41 [facility] [address] 61206- 4814 Jan, Reactive depression F32.9 and Pharyngoesophageal dysphagia R13.14 [place] [address] 57708- 5566 Jan, [facility] [address] 93005- 6461 Jan, Encounter for immunization Z23 [facility] [address] 74633- 2039 Jan, Onychomycosis B35.1 and DM 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 20442- 4152 Jan, [facility] [id number] [place] [address] 15697- 9188 Jan, Prediabetes R73.03 [facility] [id number] [place] [address] 18669- 2219 Dec, [facility] [address] 66264- 6736 Dec, Essential hypertension I10 ; Mixed hyperlipidemia E78.2 ; Acquired hypothyroidism E03.9 ; Reactive depression F32.9 and Prediabetes R73.03 [facility] [id number] [place] [address] 26652- 8899 Dec, [facility] [id number] [place] [address] 07094- 4328 Dec, [place] [address] 04725- 1608 Dec, DM 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 [facility] [id number] [place] [address] 59675 -9970 Dec, Bruise T14.8XXA ; Type 2 diabetes mellitus with hyperglycemia E11.65 and correction current use of insulin Z79.4 [facility] [id number] [place] [address] 72073- 1317 Oct, [facility] [id number] [place] [address] 11774- 8002 March, Onychomycosis B35.1 and DM 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 [facility] [id number] [place] [address] 05602- 3590 Jun, [facility] [id number] [place] [address] 44985- 4029 Jun, [facility] [id number] [place] [address] 63181- 8514 Jun, COPD with acute exacerbation 491.21 [facility] [place] [facility] [address] [id number] [place] [address]- 6464 15 Apr, 2015 [facility] [place] [facility] [address] [id number] [place] [address]- 4625 14 Feb, 2015 [facility] [place] [facility] [address] [id number] [place] [address]- 4237 Feb, [facility] [place] [facility] [address] [id number] [place] [address]- 4524 Jan, [facility] [place] [facility] [address] [id number] [place] [address]- 6344 Jan, [facility] [place] [facility] [address] [id number] [place] [address]- 2267 Jan, [facility] [place] [facility] [address] [id number] [place] [address]- 4013 Jan, [facility] [place] [facility] [address] [id number] [place] [address]- 8162 Jan, [facility] [place] [facility] [address] [id number] [place] [address]- 3672 Jan, [facility] [place] [facility] [address] [id number] [place] [address]- 7890 Jan, [facility] [place] [facility] [address] [id number] [place] [address]- 4793 Jan, [facility] [place] [facility] [address] [id number], [place] [address]- 0393 Jan, [facility] [place] [facility] [address] [id number] [place] [address]- 4393 Jan, [facility] [place] [facility] [address] [id number] [place] [address]- 5690 Jan, [facility] [place] [facility] [address] [id number] [place] [address]- 4765 Jan, [facility] [place] [facility] [address] [id number] [place] [address]- 6239 18 Jan, 2014 [facility] [place] [facility] [address] [id number] [place] [address]- 7499 16 Jan, 2014 [facility] [place] [facility] [address] [id number] [place] [address]- 2696 16 Jan, 2014 [facility] [place] [facility] [address] [id number] [place] [address]- 8269 16 Jan, 2014 [facility] [place] [facility] [address] [id number] [place] [address]- 9411 16 Jan, 2014 [facility] [place] [facility] [address] [id number] [place] [address]- 1572 15 Jan, 2015 [facility] [place] [facility] [address] [id number] [place] [address]- 4666 13 Jan, 2014 [facility] [place] [facility] [address] [id number] [place] [address]- 0393 13 Jan, 2014 [facility] [place] [facility] [address] [id number] [place] [address]- 1253 13 Jan, 2015 [facility] [place] [facility] [address] [id number] [place] [address]- 5872 13 Jan, 2014 [facility] [place] [facility] [address] [id number] [place] [address]- 3441 12 Jan, 2015 [facility] [place] [facility] [address] [id number] [place] [address]- 7479 04 Jan, 2015 [facility] [place] [facility] [address] [id number] [place] [address]- 6567 04 Jan, 2015 [facility] [place] [facility] [address] [id number] [place] [address]- 7255 24 Dec, 2014 [facility] [place] [facility] [address] [id number] [place] [address]- 3968 24 Dec, 2014 [facility] [place] [facility] [address] [id number] [place] [address]- 6784 Dec, [facility] [place] [facility] [address] [id number] [place] [address]- 3019 Dec, [facility] [place] [facility] [address] [id number] [place] [address]- 4106 Dec, [facility] [place] [facility] [address] [id number] [place] [address]- 6746 Dec, [facility] [place] [facility] [address] [id number] [place] [address]- 5487 Dec, [facility] [place] [facility] [address] [id number] [place] [address]- 3155 Dec, [facility] [place] [facility] [address] [id number] [place] [address]- 9211 Dec, [facility] [place] [facility] [address] [id number] [place] [address]- 4872 Dec, [facility] [place] [facility] [address] [id number] [place] [address]- 4023 Dec, [facility] [place] [facility] [address] [id number] [place] [address]- 8837 Dec, [facility] [place] [facility] [address] [id number] [place] [address]- 8226 Nov, [facility] [place] [facility] [address] [id number] [place] [address]- 3275 Nov, [facility] [place] [facility] [address] [id number] [place] [address]- 0967 Nov, [facility] [place] [facility] [address] [id number] [place] [address]- 5398 Nov, [facility] [place] [facility] [address] [id number] [place] [address]- 5249 Nov, [facility] [place] [facility] [address] [id number] [place] [address]- 4514 Nov, [facility] [place] [facility] [address] [id number] [place] [address]- 8695 15 Nov, 2014 [facility] [address] [id number] [place] [address]- 2259 Nov, [facility] [address] [id number] [place] [address]- 7053 Nov, [facility] [address] [id number] [place] [address]- 5762 Nov, [facility] [address] [id number] [place] [address]- 1661 Nov, [facility] [address] [id number] [place] [address]- 3802 Nov, [facility] [address] [id number] [place] [address]- 0059 Oct, [facility] [address] [id number] [place] [address]- 9867 Oct, [facility] [address] [id number] [place] [address]- 1655 Oct, [facility] [address] [id number] [place] [address]- 3167 Oct, [facility] [address] [id number] [place] [address]- 6107 Oct, [facility] [address] [id number] [place] [address]- 3815 29 Oct, 2014 [facility] [address] [id number] [place] [address]- 5640 Oct, [facility] [place] [facility] [address] [id number] [place] [address]- 1242 Oct, [facility] [place] [facility] [address] [id number] [place] [address]- 5656 Oct, [facility] [place] [facility] [address] [id number] [place] 4462 Oct, [facility] [place] [facility] [address] [id number] [place] [address]- 5270 16 Oct, 2014 [facility] [place] [facility] [address] [id number] [place] [address]- 1236 Oct, [facility] [place] [facility] [address] [id number] [place] [address]- 2697 Oct, [facility] [place] [facility] [address] [id number] [place] [address]- 8562 Oct, [facility] [place] [facility] [address] [id number] [place] [address]- 9763 Oct, [facility] [place] [facility] [address] [id number] [place] [address]- 1580 Sep, [facility] [place] [facility] [address] [id number] [place] [address]- 5102 Sep, [facility] [place] [facility] [address] [id number] [place] [address]- 6825 Sep, [facility] [place] [facility] [address] [id number] [place] [address]- 9768 Sep, [facility] [place] [facility] [address] [id number], [place] [address]- 5794 Aug, [facility] [place] [facility] [address] [id number], [place] [address]- 3784 Aug, [facility] [place] [facility] [address] [id number], [place] [address]- 7547 Aug, [facility] [place] [facility] [address] [id number], [place] [address]- 7654 Aug, [facility] [place] [facility] [address] [id number], [place] [address]- 2851 Aug, [facility] [place] [facility] [address] [id number], [place] [address]- 2026 Aug, [facility] [place] [facility] [address] [id number], [place] [address]- 8634 Jul, [facility] [place] [facility] [address] [id number] [place] [address]- 1908 29 Jul, 2014 [facility] [place] [facility] [address] [id number] [place] [address]- 2804 Jul, [facility] [place] [facility] [address] [id number] [place] [address]- 5995 Jul, [facility] [place] [facility] [address] [id number] [place] [address]- 0475 Jul, [facility] [place] [facility] [address] [id number] [place] [address]- 2652 Jul, [facility] [place] [facility] [address] [id number] [place] [address]- 7466 Jun, [facility] [place] [facility] [address] [id number] [place] [address]- 1467 Jun, [facility] [place] [facility] [address] [id number] [place] [address]- 0298 Jun, [facility] [place] [facility] [address] [id number] [place] [address]- 4859 Jun, [facility] [place] [facility] [address] [id number] [place] [address]- 5587 Jun, [facility] [place] [facility] [address] [id number] [place] [address]- 5531 Jun, [facility] [place] [facility] [address] [id number] [place] [address]- 9332 Jun, [facility] [place] [facility] [address] [id number] [place] [address]- 3355 May, [facility] [place] [facility] [address] [id number] [place] [address]- 4421 May, [facility] [place] [facility] [address] [id number] [place] [address]- 6125 May, [facility] [place] [facility] [address] [id number] [place] [address]- 8108 May, 2013 [facility] [place] [facility] [address] [id number] [place] [address]- 1080 May, 2013 [facility] [place] [facility] [address] [id number] [place] [address]- 3096 May, 2013 [facility] [place] [facility] [address] [id number] [place] [address]- 3160 May, 2013 [facility] [place] [facility] [address] [id number] [place] [address]- 8579 May, 2013 [facility] [place] [facility] [address] [id number] [place] [address]- 9964 May, [facility] [place] [facility] [address] [id number] [place] [address]- 7587 May, [facility] [place] [facility] [address] [id number] [place] [address]- 9932 May, [facility] [place] [facility] [address] [id number] [place] [address]- 9166 May, [facility] [place] [facility] [address] [id number] [place] [address]- 1262 Apr, [facility] [place] [facility] [address] [id number] [place] [address]- 6815 Apr, [facility] [place] [facility] [address] [id number] [place] [address]- 4052 Apr, [facility] [place] [facility] [address] [id number] [place] [address]- 7589 Apr, [facility] [place] [facility] [address] [id number] [place] [address]- 4696 Apr, [facility] [place] [facility] [address] [id number] [place] [address]- 3316 Apr, [facility] [place] [facility] [address] [id number] [place] [address]- 0846 Apr, [facility] [place] [facility] [address] [id number] [place] [address]- 1590 Apr, [facility] [place] [facility] [address] [id number] [place] [address]- 9863 Apr, [facility] [place] [facility] [address] [id number] [place] [address]- 0778 Apr, [facility] [place] [facility] [address] [id number] [place] [address]- 7127 March, [facility] [place] [facility] [address] [id number] [place] [address]- 6753 March, [facility] [place] [facility] [address] [id number] [place] [address]- 3679 March, [facility] [place] [facility] [address] [id number] [place] [address]- 7158 March, [facility] [place] [facility] [address] [id number] [place] [address]- 6763 March, [facility] [place] [facility] [address] [id number] [place] [address]- 5361 March, [facility] [place] [facility] [address] [id number] [place] [address]- 5854 Feb, [facility] [place] [facility] [address] [id number] [place] [address]- 4773 Feb, [facility] [place] [facility] [address] [id number] [place] [address]- 6508 Feb, [facility] [place] [facility] [address] [id number] [place] [address]- 3990 Feb, [facility] [place] [facility] [address] [id number] [place] [address]- 0381 Feb, [facility] [place] [facility] [address] [id number] [place] [address]- 3988 Feb, [facility] [place] [facility] [address] [id number] [place] [address]- 1001 Feb, [facility] [place] [facility] [address] [id number] [place] 1673 Feb, [facility] [place] [facility] [address] [id number] [place] 7838 Feb, [facility] [place] [facility] [address] [id number] [place] [address]- 1873 Feb, [facility] [place] [facility] [address] [id number] [place] [address]- 0465 Jan, [facility] [place] [facility] [address] [id number] [place] [address]- 7888 Jan, [facility] [place] [facility] [address] [id number] [place] [address]- 4010 Jan, [facility] [place] [facility] [address] [id number] [place] [address]- 8151 Jan, [facility] [place] [facility] [address] [id number] [place] [address]- 3196 Jan, [facility] [place] [facility] [address] [id number] [place] [address]- 7958 Jan, [facility] [place] [facility] [address] [facility] [id number] [place] [address] Jan, [facility] [place] [facility] [address] [id number] [place] [address] Jan, [facility] [place] [facility] [address] [id number] [place] [address] Dec, [facility] [place] [facility] [address] [id number] [place] [address] Dec, [facility] [place] [facility] [address] [id number] [place] [address] Dec, [facility] [place] [facility] [address] [id number] [place] [address] Dec, [facility] [place] [facility] [address] [id number] [place] [address] Dec, [facility] [place] [facility] [address] [id number] [place] [address] Dec, [facility] [place] [facility] [address] [id number] [place] [address] Dec, [facility] [place] [facility] [address] [id number] [place] [address] Dec, [facility] [place] [facility] [address] [id number] [place] [address] Nov, [facility] [place] [facility] [address] [id number] [place] [address] Nov, [facility] [place] [facility] [address] [id number] [place] [address] Nov, [facility] [place] [facility] [address] [id number] [place] [address] Nov, [facility] [place] [facility] [address] [id number] [place] [address] Nov, [facility] [place] [facility] [address] [id number] [place] [address] Nov, [facility] [place] [facility] [address] [id number], [place] [address] Nov, [facility] [place] [facility] [address] [id number], [place] [address] Nov, [facility] [place] [facility] [address] [id number] [place] [address] Nov, [facility] [place] [facility] [address] [id number] [place] [address] Nov, [facility] [place] [facility] [address] [id number] [place] [address] Nov, [facility] [place] [facility] [address] [id number] [place] [address] Oct, [facility] [address] [id number] [place] [address] Oct, [facility] [place] [facility] [address] [id number] [place] [address]90 Oct, [facility] [place] [facility] [address] [id number] [place] [address] Oct, [facility] [place] [facility] [address] [id number] [place] [address] Sep, [facility] [place] [facility] [address] [id number] [place] [address] Sep, [facility] [place] [facility] [address] [id number] [place] [address] Sep, [facility] [place] [facility] [address] [id number] [place] [address] Sep, [facility] [place] [facility] [address] [id number] [place] [address] Aug, [facility] [place] [facility] [address] [id number] [place] [address] Aug, [facility] [place] [facility] [address] [facility] [id number] [place] [address] Aug, [facility] [place] [facility] [address] [id number] [place] [address] Aug, [facility] [place] [facility] [address] [id number], [place] [address] Aug, [facility] [place] [facility] [address] [id number] [place] [address] Aug, [facility] [place] [facility] [address] [facility] [id number] [place] [address]24 Aug, [facility] [place] [facility] [address] [id number] [address] Aug, [facility] [place] [facility] [address] [id number] [place] [address]67 28 Jul, 2012 [facility] [place] [facility] [address] [id number] [place] [address]48 27 Sep, 2012 [facility] [place] [facility] [address] [id number] [place] [address] 26 Jul, 2012 [facility] [place] [facility] [address] [id number] [place] [address] 2542 24 Jul, 2012 [facility] [address] [id number] [place] [address]- [address] 24 Jul, 2012 [facility] [place] [facility] [address] [id number] [place] [address] 23 Jul, 2012 [facility] [address] [id number] [place] [address] 8470 19 Jul, 2012 [facility] [address] [id number] [place] [address] 18 Jul, 2012 [facility] [address] [id number] [place] [address] 17 Jul, 2012 [facility] [place] [facility] [address] [id number] [place] [address]44 16 Jul, 2012 [facility] [facility] [address] [id number] [place] [address] 13 Jul, 2012 [facility] [place] [facility] [address] [id number] [place] [address] 13 Jul, 2012 [facility] [place] [facility] [address] [id number] [place] [address] 2548 12 Jul, 2012 [facility] [place] [facility] [address] [id number] [place] [address] 2547 11 Jul, 2012 [facility] [place] [facility] [address] [id number] [place] [address] 2549 04 Sep, 2012 [facility] [place] [address] [id number] [place] [address] 2546 Jun, [facility] [place] [facility] [address] [id number] [place] [address] 4458 Jun, [facility] [place] [facility] [address] [id number] [place] [address]- 1078 Jun, [facility] [place] [facility] [address] [id number] [place] [address] 0174 May, [facility] [place] [facility] [address] [id number] [place] [address]- 5875 May, [facility] [place] [facility] [address] [id number] [place] [address]- 9785 May, [facility] [place] [facility] [address] [id number] [place] [address]- 2507 May, [facility] [place] [facility] [address] [id number] [place] [address]- 5397 Apr, [facility] [place] [facility] [address] [id number] [place] [address]- 1519 Apr, [facility] [address] [id number] [place] [address]- 2545 Apr, [facility] [address] [id number] [place] [address]- 8794 Apr, [facility] [address] [id number] [place] [address]- 3007 March, [facility] [address] [id number] [place] [address]- 0331 March, [facility] [address] [id number] [place] [address]- 2277 March, [facility] [address] [id number] [place] [address]- 2184 Feb, [facility] [address] [id number] [place] [address]- 3009 Feb, [facility] [address] [id number] [place] [address]- 2930 Jan, [facility] [address] [id number] [place] [address]- 6473 Jan, [facility] [address] [id number] [place] [address]- 5327 Jan, [facility] [address] [id number] [place] [address]- 4448 Jan, [facility] [address] [id number] [place] [address]- 5802 Jan, [facility] [address] [id number] [place] [address]- 7830 Dec, [facility] [address] [id number] [place] [address]- 1012 Dec, [facility] [address] [id number] [place] [address]- 7667 Dec, [facility] [address] [id number] [place] [address]- 8260 Dec, [facility] [address] [id number] [place] [address]- 3697 Dec, [facility] [address] [facility] [id number] [place] [address]- 3364 Dec, [facility] [address] [id number] [place] [address]- 8491 Dec, [facility] [address] [id number] [place] [address]- 3193 Dec, [facility] [address] [id number] [place] [address]- 1354 Nov, [facility] [address] [id number] [place] [address]- 0260 Nov, [facility] [address] [id number] [place] [address]- 2546 Nov, [facility] [address] [id number] [place] [address]- 1857 Nov, [facility] [address] [id number] [place] [address]- 5046 Nov, [facility] [address] [id number] [place] [address]- 3544 Nov, [facility] [address] [id number] [place] [address]- 2822 Nov, [facility] [address] [id number] [place] [address]- 1471 Oct, [facility] [address] [id number] [place] [address]- 2236 Oct, [facility] [address] [id number] [place] [address]- 7010 Oct, [facility] [address] [id number] [place] [address]- 6947 Oct, [facility] [address] [id number] [place] [address]- 9095 Oct, [facility] [address] [id number] [place] [address]- 0157 Oct, [facility] [address] [id number] [place] [address]- 9301 Oct, [facility] [address] [id number] [place] [address]- 7305 Oct, [facility] [address] [id number] [place] [address]- 2584 Sep, [facility] [address] [id number] [place] [address]- 1185 Sep, [facility] [address] [id number] [place] [address]- 4322 Sep, [facility] [address] [id number] [place] [address]- 7042 Sep, [facility] [address] [id number] [place] [address]- 7046 Sep, [facility] [address] [id number] [place] [address]- 7359 Sep, [facility] [address] [id number] [place] [address]- 6203 Sep, [facility] [address] [id number] [place] [address]- 4833 Sep, [facility] [address] [id number] [place] [address]- 1480 Sep, [facility] [address] [id number] [place] [address]- 2886 Sep, [facility] [address] [id number] [place] [address]- 5216 Sep, [facility] [address] [id number] [place] [address]- 2407 Sep, [facility] [address] [id number] [place] [address]- 9996 Sep, [facility] [address] [id number] [place] [address]- 6206 Sep, [facility] [address] [id number] [place] [address]- 5950 Sep, [facility] [address] [id number] [place] [address]- 0812 Sep, [facility] [address] [id number] [place] [address]- 7139 Sep, [facility] [address] [id number] [place] [address]- 5504 Sep, [facility] [address] [id number] [place] [address]- 1748 Sep, [facility] [address] [id number] [place] [address]- 6437 Sep, [facility] [address] [id number] [place] [address]- 9084 Aug, [facility] [address] [id number] [place] [address]- 6207 Aug, [facility] [address] [id number] [place] [address]- 8803 Aug, [facility] [address] [id number] [place] [address]- 3288 Aug, [facility] [address] [id number] [place] [address]- 8180 Aug, [facility] [address] [id number] [place] [address]- 4412 Aug, [facility] [address] [id number], [place] [address]- 1193 Aug, [facility] [address] [id number], [place] [address]- 7098 Aug, [facility] [address] [facility] [id number], [place] [address]- 8317 Aug, [facility] [address] [facility] [id number], [place] [address]- 9210 16 Aug, 2012 [facility] [address] [id number], [place] [address]- 6132 15 Aug, 2012 [facility] [address] [id number], [place] [address]- 0145 Aug, [facility] [address] [id number], [place] [address]- 8314 Aug, [facility] [address] [facility] [id number], [place] [address]- 8101 Aug, [facility] [address] [id number], [place] [address]- 0511 04 Aug, 2012 [facility] [address] [id number] [place] [address]- 7405 14 Jul, 2012 [facility] [address] [id number] [place] [address]- 5026 10 Jul, 2012 [facility] [address] [id number] [place] [address]- 8536 31 Jun, 2012 [facility] [address] [id number] [place] [address]- 1356 Jun, [facility] [address] [id number] [place] [address]- 0362 31 May, 2012 [facility] [address] [id number] [place] [address]- 7499 May, [facility] [address] [id number] [place] [address]- 3625 May, [facility] [address] [id number] [place] [address]- 8017 May, [facility] [address] [id number] [place] [address]- 8787 May, [facility] [address] [id number] [place] [address]- 1911 May, [facility] [address] [id number] [place] [address]- 6422 Apr, [facility] [address] [id number] [place] [address]- 4305 Apr, [facility] [address] [id number] [place] [address]- 4211 March, [facility] [address] [id number] [place] [address]- 2784 March, [facility] [address] [id number] [place] [address]- 6323 March, [facility] [address] [id number] [place] [address]- 6747 15 Mar, 2012 [facility] [address] [id number] [place] [address]- 0726 March, [facility] [address] [id number] [place] [address]- 0216 March, [facility] [address] [id number] [place] [address]- 5895 Feb, [facility] [address] [id number] [place] [address]- 3180 Feb, [facility] [address] [id number] [place] [address]- 6830 Feb, [facility] [address] [id number] [place] [address]- 9942 Feb, [facility] [address] [id number] [place] [address]- 3794 Feb, [facility] [address] [id number] [place] [address]- 5613 Feb, [facility] [address] [id number] [place] [address]- 8918 Feb, [facility] [address] [id number] [place] [address]- 8114 Feb, [facility] [address] [id number] [place] [address]- 5594 Feb, [facility] [address] [id number] [place] [address]- 4014 Jan, [facility] [address] [id number] [place] [address]- 7449 Jan, [facility] [address] [id number] [place] [address]- 3823 Jan, [facility] [address] [id number] [place] [address]- 1664 22 Jan, 2012 [facility] [address] [id number] [place] [address]- 5065 21 Jan, 2012 [facility] [address] [id number] [place] [address]- 2136 20 Jan, 2012 [facility] [address] [id number] [place] [address]- 9186 14 Jan, 2012 [facility] [address] [id number] [place] [address]- 3169 09 Jan, 2012 [facility] [address] [id number] [place] [address]- 6517 09 Jan, 2012 [facility] [address] [id number] [place] [address]- 3187 08 Jan, 2012 [facility] [address] [id number] [place] [address]- 8294 07 Jan, 2012 [facility] [address] [id number] [place] [address]- 4810 06 Jan, 2012 [facility] [address] [id number] [place] [address]- 4393 02 Jan, 2012 [facility] [address] [id number] [place] [address]- 2674 02 Jan, 2012 [facility] [address] [id number] [place] [address]- 2005 28 Dec, 2011 [facility] [address] [id number] [place] [address]- 0252 27 Dec, 2011 [facility] [address] [id number] [place] [address]- 0246 25 Dec, 2011 [facility] [address] [id number] [place] [address]- 4369 23 Dec, 2011 [facility] [address] [id number] [place] [address]- 1609 16 Dec, 2011 [facility] [address] [id number] [place] [address]- 8366 08 Dec, 2011 [facility] [address] [id number] [place] [address]- 6226 08 Dec, 2011 [facility] [address] [id number] [place] [address] 2546 Dec, [facility] [address] [id number] [place] [address] 2546 Dec, [facility] [address] [id number] [place] [address] 2545 Nov, [facility] [address] [id number] [place] [address]- 7186 Nov, [facility] [address] [id number] [place] [address]- 5279 Nov, [facility] [address] [id number] [place] [address]- 5826 Nov, [facility] [address] [id number] [place] [address]- 5457 Oct, [facility] [address] [id number] [place] [address]- 2541 Oct, [facility] [address] [id number] [place] [address]- 5406 Oct, [facility] [address] [id number] [place] [address] 2546 Oct, [facility] [address] [id number] [place] [address] 2546 Oct, [facility] [address] [id number] [place] [address] 2546 Oct, [facility] [address] [id number] [place] [address] 2546 05 Oct, 2011 [facility] [address] [id number] [place] [address]- 5321 Sep, [facility] [address] [id number] [place] [address]- 6798 Sep, [facility] [address] [id number] [place] [address]- 2324 Sep, [facility] [facility] [address] [id number] [place] 0366 Sep, [facility] [facility] [address] [id number] [place] [address]- 2267 Sep, [facility] [facility] [address] [id number] [place] [address]- 0520 Sep, [facility] [place] [facility] [address] [id number] [place] [address]- 4515 Sep, [facility] [place] [facility] [address] [id number] [place] [address]- 5027 Sep, [facility] [facility] [address] [id number], [place] [address]- 7620 Sep, [facility] [place] [facility] [address] [id number] [place] [address]- 8371 Aug, [facility] [place] [facility] [address] [id number] [place] [address]- 5096 Aug, [facility] [place] [facility] [address] [id number], [place] [address]- 3446 Aug, [facility] [place] [facility] [address] [id number], [place] [address]- 5488 May, [facility] [place] [facility] [address] [id number] [place] [address]- 3428 Nov, [facility] [place] [facility] [address] [id number], [place] [address]- 0076 Oct, [facility] [place] [facility] [address] [id number] [place] 6545 Oct, [facility] [place] [facility] [address] [id number] [place] [address]- 0415 30 Oct, 2010 [facility] [address] [id number] [place] [address]- 0056 02 Oct, 2010 [facility] [place] [facility] [address] [id number] [place] [address] 2546 Oct, [facility] [address] [id number] [place] [address]- 2146 03 Sep, 2010 [facility] [address] [id number] [place] [address] 2546 Sep, [facility] [address] [id number] [place] [address]- 4260 14 Jul, 2010 [facility] [address] [id number] [place] [address]- 3431 31 Oct, 2009 [facility] [address] [id number] [place] [address]- 1929 Oct, [facility] [address] [id number] [place] [address]- 9930 Oct, [facility] [address] [id number] [place] [address]- 6181 Oct, [facility] [address] [facility] [id number] [place] [address]- 2934 30 Sep, 2009 [facility] [address] [id number] [place] [address] 2546 Sep, [facility] [place] [facility] [address] [id number], [place] [address] 2545 Sep, [facility] [place] [facility] [address] [id number] [place] [address] 2549 04 Sep, 2009 [facility] [place] [facility] [address] [facility] [id number] [place] [address] 2546 03 Sep, 2009 [facility] [place] [facility] [address] [id number], [place] [address]- 5660 Jul, [facility] [address] [facility] [id number] [place] [address]- 6085 Apr, [facility] [address] [facility] [id number] [place] [address]- 9584 Dec, IMMUNIZATIONS No Known Immunizations SOCIAL HISTORY Never Assessed REASON FOR VISIT Controlled Med Refill 06/29 PLAN OF CARE VITAL SIGNS MEDICATIONS Medication [...]
--- OUTSIDE RECORDS SUMMARY | 2018-11-26 15:47 | XMS REPORT ---
Author Author KING FISHMAN Organization [facility] Address [address] [place] [address] Care Team Providers Care Hospice Superintendent Name Role Phone KING FISHMAN Unavailable PROBLEMS Type Condition ICD9-CM Code TME26-WC Code Onset Dates Condition Status SNOMED Code Problem Lumbago with sciatica, left side M54.42 Active 856203691 Problem Other chronic pain G89.29 Active 46203108 Problem Lumbago with sciatica, right side M54.41 Active [id number] Problem Iron deficiency anemia due to chronic blood loss D50.0 Active 555117011 Problem Seizures R56.9 Active 73720639 Problem Chronic obstructive pulmonary disease, unspecified COPD type J44.9 Active 46264681 Problem Pain in right ankle and joints of right foot M25.571 Active 04532843565237 Problem DM 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 Active 19903248 Problem Cigarette nicotine dependence without complication F17.210 Active 92937078 Problem Mixed hyperlipidemia E78.2 Active 118814807 Problem Essential hypertension I10 Active 49543636 Problem Prediabetes R73.03 Active 158151093 Problem Acquired hypothyroidism E03.9 Active 863889498 Problem Reactive depression F32.9 Active 04371083 Problem Gastroesophageal reflux disease, esophagitis presence not specified K21.9 Active 963859040 ALLERGIES No Information ENCOUNTERS Encounter Location Date Diagnosis [facility] [address] [facility] [id number], [place] [address] Oct, [facility] [id number] [place] [address] 39067- 2600 Jul, Onychomycosis B35.1 ; Onychocryptosis L60.0 and DM 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 [facility] [place] [address] [facility] [id number], [place] [address] Jun, Pain in thoracic spine M54.6 [facility] [place] [id number] [place] [address] 36692- 7394 Jun, Iron deficiency anemia due to chronic blood loss D50.0 and Hematochezia K92.1 [facility] [place] [id number] [place] [address] 24405- 6216 Jun, Gastroenteritis K52.9 and Abnormal RBC indices R71.8 [facility] [place] [address] [address]- 4921 Jun, [facility] [place] [address] [address]- 6240 Jun, Chest congestion R09.89 and Seizures R56.9 [facility] [place] [address] 99982- 3997 May, Pain in thoracic spine M54.6 [facility] [place] [id number] [place] [address] 43910- 6501 May, [facility] [place] [id number] [place] [address] 25991- 7613 May, [facility] [place] [id number] [place] [address] 97588- 6681 May, [facility] [place] [id number] [place] [address] 22621- 4742 May, Acute non-recurrent frontal sinusitis J01.10 and Dermatitis L30.9 [facility] [place] [id number] [place] [address] 72368 2543 May, [facility] [place] [id number] [place] [address] 73238- 4534 May, Pain in thoracic spine M54.6 [facility] [place] [id number] [place] [address] 99487- 2056 May, [facility] [place] [id number] [place] [address] 23329- 0927 May, Acute nasopharyngitis J00 [facility] [place] [address] [address] 8507 May, [facility] [place] [id number] [place] [address] 79782- 5353 May, [facility] [place] [id number] [place] [address] 83931- 2678 Apr, [facility] [place] [id number] [place] [address] 61516- 0343 Apr, [facility] [place] [id number] [place] [address] 98663- 4947 Apr, [facility] [place] [id number] [place] [address] 17776- 1157 Apr, [facility] [place] [id number] [place] [address] 13128- 9454 Apr, Pain in right ankle and joints of right foot M25.571 [place] [facility] [id number] [place] [address] 24831- 7182 Apr, [facility] [place] [id number] [place] [address] 47372- 2988 Apr, Bronchitis J40 ; Pain in right ankle and joints of right foot M25.571 ; Other chronic pain G89.29 ; Prediabetes R73.03 ; Chronic obstructive pulmonary disease, unspecified COPD type J44.9 and Cigarette nicotine dependence without complication F17.210 [facility] [address] [address] 13 Apr, 2018 Seasonal allergic rhinitis, unspecified trigger J30.2 [facility] [place] [id number] [place] [address] 04217- 0903 08 Apr, 2018 Onychomycosis B35.1 ; Onychocryptosis L60.0 and DM 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 [facility] [place] [id number] [place] [address] 28060- 7908 Apr, Reactive depression F32.9 ; Thoracic myofascial strain, initial encounter S29.019A and Leg cramps R25.2 [place] [address] 75396- 7951 March, [place] [address] 15827- 9008 March, Type 2 diabetes mellitus with hyperglycemia E11.65 [place] [address] 42302- 2959 March, Reactive depression F32.[address] 33100- 7601 March, Pain in thoracic spine M54.6 and Other chronic pain G89.29 [place] [address] 62515- 2462 Feb, [place] [address] 27091- 5752 Jan, Reactive depression F32.9 ; Essential hypertension I10 ; Gastroesophageal reflux disease, esophagitis presence not specified K21.9 ; Lumbago with sciatica, left side M54.42 and Lumbago with sciatica, right side M54.41 [place] [address] 76382- 0632 Jan, Reactive depression F32.9 and Pharyngoesophageal dysphagia R13.14 [place] [address] 65107- 9629 Jan, [place] [address] 16990- 2906 Jan, Encounter for immunization Z23 [place] [address] 44411- 0948 Jan, Onychomycosis B35.1 and DM 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 83122- 7284 Jan, [facility] [place] [id number] [place] [address] 98879- 7175 Jan, Prediabetes R73.03 [facility] [place] [id number] [place] [address] 45470- 8877 Dec, [facility] [place] [address] 86492- 0132 Dec, Essential hypertension I10 ; Mixed hyperlipidemia E78.2 ; Acquired hypothyroidism E03.9 ; Reactive depression F32.9 and Prediabetes R73.03 [place] [id number] [place] [address] 10649- 5771 Dec, [facility] [place] [id number] [place] [address] 96121- 9019 Dec, [place] [address] 85500- 8642 Dec, DM 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 [facility] [id number] [place] [address] 01643 -5527 Dec, Bruise T14.8XXA ; Type 2 diabetes mellitus with hyperglycemia E11.65 and senior living current use of insulin Z79.4 [place] [id number] [place] [address] 06953- 8801 Oct, [place] [id number] [place] [address] 26273- 3700 March, Onychomycosis B35.1 and DM 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 [place] [id number] [place] [address] 12490- 7165 Jun, [facility] [place] [id number] [place] [address] 82570- 1533 Jun, [facility] [place] [id number] [place] [address] 53598- 3400 Jun, COPD with acute exacerbation 491.21 [facility] [place] [facility] [address] [id number] [place] [address]- 0595 15 Apr, 2015 [facility] [place] [facility] [address] [id number] [place] [address]- 3227 14 Feb, 2015 [facility] [place] [facility] [address] [id number] [place] [address]- 7100 Feb, [facility] [place] [facility] [address] [id number] [place] [address]- 2893 Jan, [facility] [place] [facility] [address] [id number] [place] [address]- 4105 Jan, [facility] [place] [facility] [address] [id number] [place] [address]- 5151 Jan, [facility] [place] [facility] [address] [id number] [place] [address]- 7810 Jan, [facility] [place] [facility] [address] [id number] [place] [address]- 3843 Jan, [facility] [place] [facility] [address] [id number] [place] [address]- 1025 Jan, [facility] [place] [facility] [address] [id number] [place] [address]- 0648 Jan, [facility] [place] [facility] [address] [id number] [place] [address]- 8457 Jan, [facility] [place] [facility] [address] [id number], [place] [address]- 2722 Jan, [facility] [place] [facility] [address] [id number] [place] [address]- 8679 Jan, [facility] [place] [facility] [address] [id number] [place] [address]- 0529 Jan, [facility] [place] [facility] [address] [id number] [place] [address]- 3347 Jan, [facility] [place] [facility] [address] [id number] [place] [address]- 9338 18 Jan, 2014 [facility] [place] [facility] [address] [id number] [place] [address]- 1727 16 Jan, 2014 [facility] [place] [facility] [address] [id number] [place] [address]- 1386 16 Jan, 2014 [facility] [place] [facility] [address] [id number] [place] [address]- 3741 16 Jan, 2014 [facility] [place] [facility] [address] [id number] [place] [address]- 3225 16 Jan, 2014 [facility] [place] [facility] [address] [id number] [place] [address]- 3190 15 Jan, 2015 [facility] [place] [facility] [address] [id number] [place] [address]- 3714 13 Jan, 2014 [facility] [place] [facility] [address] [id number] [place] [address]- 1472 13 Jan, 2014 [facility] [place] [facility] [address] [id number] [place] [address]- 7632 13 Jan, 2015 [facility] [place] [facility] [address] [id number] [place] [address]- 6966 13 Jan, 2014 [facility] [place] [facility] [address] [id number] [place] [address]- 2015 12 Jan, 2015 [facility] [place] [facility] [address] [id number] [place] [address]- 8941 04 Jan, 2015 [facility] [place] [facility] [address] [id number] [place] [address]- 6108 04 Jan, 2015 [facility] [place] [facility] [address] [id number] [place] [address]- 1483 24 Dec, 2014 [facility] [place] [facility] [address] [id number] [place] [address]- 1961 24 Dec, 2014 [facility] [place] [facility] [address] [id number] [place] [address]- 6904 Dec, [facility] [place] [facility] [address] [id number] [place] [address]- 2055 Dec, [facility] [place] [facility] [address] [id number] [place] [address]- 0786 Dec, [facility] [place] [facility] [address] [id number] [place] [address]- 1476 Dec, [facility] [place] [facility] [address] [id number] [place] [address]- 0579 Dec, [facility] [place] [facility] [address] [id number] [place] [address]- 9307 Dec, [facility] [place] [facility] [address] [id number] [place] [address]- 6540 Dec, [facility] [place] [facility] [address] [id number] [place] [address]- 4398 Dec, [facility] [place] [facility] [address] [id number] [place] [address]- 1473 Dec, [facility] [place] [facility] [address] [id number] [place] [address]- 3349 Dec, [facility] [place] [facility] [address] [id number] [place] [address]- 0150 Nov, [facility] [place] [facility] [address] [id number] [place] [address]- 5739 Nov, [facility] [place] [facility] [address] [id number] [place] [address]- 2957 Nov, [facility] [place] [facility] [address] [id number] [place] [address]- 1188 Nov, [facility] [place] [facility] [address] [id number] [place] [address]- 1235 Nov, [facility] [place] [facility] [address] [id number] [place] [address]- 2408 Nov, [facility] [place] [facility] [address] [id number] [place] [address]- 3119 15 Nov, 2014 [facility] [address] [id number] [place] [address]- 7012 Nov, [facility] [address] [id number] [place] [address]- 3099 Nov, [facility] [address] [id number] [place] [address]- 2742 Nov, [facility] [address] [id number] [place] [address]- 5876 Nov, [facility] [address] [id number] [place] [address]- 4949 Nov, [facility] [address] [id number] [place] [address]- 7809 Oct, [facility] [address] [id number] [place] [address]- 4319 Oct, [facility] [address] [id number] [place] [address]- 6952 Oct, [facility] [address] [id number] [place] [address]- 9094 Oct, [facility] [address] [id number] [place] [address]- 6417 Oct, [facility] [address] [id number] [place] [address]- 0551 29 Oct, 2014 [facility] [address] [id number] [place] [address]- 7449 Oct, [facility] [place] [facility] [address] [id number] [place] [address]- 7220 Oct, [facility] [place] [facility] [address] [id number] [place] [address]- 2326 Oct, [facility] [place] [facility] [address] [id number] [place] 4014 Oct, [facility] [place] [facility] [address] [id number] [place] [address]- 5089 16 Oct, 2014 [facility] [place] [facility] [address] [id number] [place] [address]- 4824 Oct, [facility] [place] [facility] [address] [id number] [place] [address]- 2824 Oct, [facility] [place] [facility] [address] [id number] [place] [address]- 7640 Oct, [facility] [place] [facility] [address] [id number] [place] [address]- 9979 Oct, [facility] [place] [facility] [address] [id number] [place] [address]- 4139 Sep, [facility] [place] [facility] [address] [id number] [place] [address]- 0252 Sep, [facility] [place] [facility] [address] [id number] [place] [address]- 8439 Sep, [facility] [place] [facility] [address] [id number] [place] [address]- 9521 Sep, [facility] [place] [facility] [address] [id number], [place] [address]- 3294 Aug, [facility] [place] [facility] [address] [id number], [place] [address]- 9976 Aug, [facility] [place] [facility] [address] [id number], [place] [address]- 5799 Aug, [facility] [place] [facility] [address] [id number], [place] [address]- 0884 Aug, [facility] [place] [facility] [address] [id number], [place] [address]- 0598 Aug, [facility] [place] [facility] [address] [id number], [place] [address]- 2127 Aug, [facility] [place] [facility] [address] [id number], [place] [address]- 5142 Jul, [facility] [place] [facility] [address] [id number] [place] [address]- 7431 29 Jul, 2014 [facility] [place] [facility] [address] [id number] [place] [address]- 3520 Jul, [facility] [place] [facility] [address] [id number] [place] [address]- 8803 Jul, [facility] [place] [facility] [address] [id number] [place] [address]- 8841 Jul, [facility] [place] [facility] [address] [id number] [place] [address]- 1347 Jul, [facility] [place] [facility] [address] [id number] [place] [address]- 6039 Jun, [facility] [place] [facility] [address] [id number] [place] [address]- 6158 Jun, [facility] [place] [facility] [address] [id number] [place] [address]- 2543 Jun, [facility] [place] [facility] [address] [id number] [place] [address]- 8116 Jun, [facility] [place] [facility] [address] [id number] [place] [address]- 0169 Jun, [facility] [place] [facility] [address] [id number] [place] [address]- 3442 Jun, [facility] [place] [facility] [address] [id number] [place] [address]- 1938 Jun, [facility] [place] [facility] [address] [id number] [place] [address]- 7186 May, [facility] [place] [facility] [address] [id number] [place] [address]- 8565 May, [facility] [place] [facility] [address] [id number] [place] [address]- 9246 May, [facility] [place] [facility] [address] [id number] [place] [address]- 6679 May, 2013 [facility] [place] [facility] [address] [id number] [place] [address]- 5812 May, 2013 [facility] [place] [facility] [address] [id number] [place] [address]- 0186 May, 2013 [facility] [place] [facility] [address] [id number] [place] [address]- 0887 May, 2013 [facility] [place] [facility] [address] [id number] [place] [address]- 5630 May, 2013 [facility] [place] [facility] [address] [id number] [place] [address]- 2078 May, [facility] [place] [facility] [address] [id number] [place] [address]- 5416 May, [facility] [place] [facility] [address] [id number] [place] [address]- 8450 May, [facility] [place] [facility] [address] [id number] [place] [address]- 1531 May, [facility] [place] [facility] [address] [id number] [place] [address]- 9403 Apr, [facility] [place] [facility] [address] [id number] [place] [address]- 8132 Apr, [facility] [place] [facility] [address] [id number] [place] [address]- 6380 Apr, [facility] [place] [facility] [address] [id number] [place] [address]- 5789 Apr, [facility] [place] [facility] [address] [id number] [place] [address]- 3941 Apr, [facility] [place] [facility] [address] [id number] [place] [address]- 9506 Apr, [facility] [place] [facility] [address] [id number] [place] [address]- 5091 Apr, [facility] [place] [facility] [address] [id number] [place] [address]- 6792 Apr, [facility] [place] [facility] [address] [id number] [place] [address] Apr, [facility] [place] [facility] [address] [id number] [place] [address] Apr, [facility] [place] [facility] [address] [id number] [place] [address] March, [facility] [place] [facility] [address] [id number] [place] [address] March, [facility] [place] [facility] [address] [id number] [place] [address] March, [facility] [place] [facility] [address] [id number] [place] [address] March, [facility] [place] [facility] [address] [id number] [place] [address] March, [facility] [place] [facility] [address] [id number] [place] [address] March, [facility] [place] [facility] [address] [id number] [place] [address] Feb, [facility] [place] [facility] [address] [id number] [place] [address] Feb, [facility] [place] [facility] [address] [id number] [place] [address] 96[address] Feb, [facility] [place] [facility] [address] [id number] [place] [address] Feb, [facility] [place] [facility] [address] [id number] [place] [address] Feb, [facility] [place] [facility] [address] [id number] [place] [address] 40[address] Feb, [facility] [place] [facility] [address] [id number] [place] [address]- 13[address] Feb, [facility] [place] [facility] [address] [id number] [place] [address] Feb, [facility] [place] [facility] [address] [id number] [id number] [address] Feb, [facility] [place] [facility] [address] [id number] [place] [address] Feb, [facility] [place] [facility] [address] [id number] [place] [address] Jan, [facility] [place] [facility] [address] [id number] [place] [address]- 2831 Jan, [facility] [place] [facility] [address] [id number] [place] [address] Jan, [facility] [place] [facility] [address] [id number] [place] [address] Jan, [facility] [place] [facility] [address] [id number] [place] [address]- [address] Jan, [facility] [place] [facility] [address] [id number] [place] [address] Jan, [facility] [place] [facility] [address] [facility] [id number] [place] [address]- 7[address] Jan, [facility] [place] [facility] [address] [id number] [place] [address] Jan, [facility] [place] [facility] [address] [id number] [place] [address]- [address]678 Dec, [facility] [place] [facility] [address] [id number] [place] [address] Dec, [facility] [place] [facility] [address] [id number] [place] [address]- [address] Dec, [facility] [place] [facility] [address] [id number] [place] [address]- 2869 Dec, [facility] [place] [facility] [address] [id number] [place] [address]- 92[address] Dec, [facility] [place] [facility] [address] [id number] [place] [address]- [address] Dec, [facility] [place] [facility] [address] [id number] [place] [address] 3620 Dec, [facility] [place] [facility] [address] [id number] [place] [address]- 8775 Dec, [facility] [place] [facility] [address] [id number] [place] [address] Nov, [facility] [place] [facility] [address] [id number] [place] [address] Nov, [facility] [place] [facility] [address] [id number] [place] [address] Nov, [facility] [place] [facility] [address] [id number] [place] [address]- [address] Nov, [facility] [place] [facility] [address] [id number] [place] [address] Nov, [facility] [place] [facility] [address] [id number] [place] [address]- 37[address] Nov, [facility] [place] [facility] [address] [id number], [place] [address] Nov, [facility] [place] [facility] [address] [id number], [place] [address] Nov, [facility] [place] [facility] [address] [id number] [place] [address]- [address] Nov, [facility] [place] [facility] [address] [id number] [place] [address]- 3914 Nov, [facility] [place] [facility] [address] [id number] [place] [address]- 64[address] Nov, [facility] [place] [facility] [address] [id number] [place] [address]- [address] Oct, [facility] [address] [id number] [place] [address]- [address]846 Oct, [facility] [place] [facility] [address] [id number] [place] [address]- [address]641 Oct, [facility] [place] [facility] [address] [id number] [place] [address]- [address] Oct, [facility] [place] [facility] [address] [id number] [place] [address]- 48[address] Sep, [facility] [place] [facility] [address] [id number] [place] [address]- [address] Sep, [facility] [place] [facility] [address] [id number] [place] [address]- [address] Sep, [facility] [place] [facility] [address] [id number] [place] [address]- [address] Sep, [facility] [place] [facility] [address] [id number] [place] [address]- 18[address] Aug, [facility] [place] [facility] [address] [id number] [place] [address]- 44[address] Aug, [facility] [place] [facility] [address] [facility] [id number] [place] [address]- [address] Aug, [facility] [place] [facility] [address] [id number] [place] [address]- 1709 Aug, [facility] [place] [facility] [address] [address] [id number], [place] [address] Aug, [facility] [place] [facility] [address] [id number] [place] [address] 3975 Aug, [facility] [place] [facility] [address] [facility] [id number] [place] [address]014 Aug, [facility] [place] [facility] [address] [id number] [address] Aug, [facility] [place] [facility] [address] [id number] [place] [address] 3324 28 Jul, 2012 [facility] [place] [facility] [address] [id number] [place] [address] 254 27 Sep, 2012 [facility] [place] [facility] [address] [id number] [place] [address]- 254 26 Jul, 2012 [facility] [place] [facility] [address] [id number] [place] [address] 2541 24 Jul, 2012 [facility] [address] [id number] [place] [address]- 2540 24 Jul, 2012 [facility] [place] [facility] [address] [id number] [place] [address]- 0070 23 Jul, 2012 [facility] [address] [id number] [place] [address]- 5119 19 Jul, 2012 [facility] [address] [id number] [place] [address]- 8514 18 Jul, 2012 [facility] [address] [id number] [place] [address]- 2167 17 Jul, 2012 [facility] [place] [facility] [address] [id number] [place] [address]- 4533 16 Jul, 2012 [facility] [place] [facility] [address] [id number] [place] [address]- 2548 13 Jul, 2012 [facility] [place] [facility] [address] [id number] [place] [address]- 2547 13 Jul, 2012 [facility] [place] [facility] [address] [id number] [place] [address]- 2549 12 Jul, 2012 [facility] [place] [facility] [address] [id number] [place] [address]- 2548 11 Jul, 2012 [facility] [place] [facility] [address] [id number] [place] [address]- 2544 04 Sep, 2012 [facility] [place] [facility] [address] [id number] [place] [address]- 2546 Jun, [facility] [place] [facility] [address] [id number] [place] [address]- 8957 Jun, [facility] [place] [facility] [address] [id number] [place] [address]- 9012 Jun, [facility] [place] [facility] [address] [id number] [place] [address]- 4510 May, [facility] [place] [facility] [address] [id number] [place] [address]- 9033 May, [facility] [place] [facility] [address] [id number] [place] [address]- 8590 May, [facility] [place] [facility] [address] [id number] [place] [address]- 0183 May, [facility] [place] [facility] [address] [id number] [place] [address]- 0521 Apr, [facility] [place] [facility] [address] [id number] [place] [address]- 2846 Apr, [facility] [place] [facility] [address] [id number] [place] [address]- 2666 Apr, [facility] [place] [facility] [address] [id number] [place] [address]- 4741 Apr, [facility] [place] [facility] [address] [id number] [place] [address]- 6394 March, [facility] [place] [facility] [address] [id number] [place] [address]- 2973 March, [facility] [place] [facility] [address] [id number] [place] [address]- 6741 March, [facility] [place] [facility] [address] [id number] [place] [address]- 2178 Feb, [facility] [place] [facility] [address] [id number] [place] [address]- 4928 Feb, [facility] [place] [facility] [address] [id number] [place] [address]- 5928 Jan, [facility] [address] [id number] [place] [address]- 2516 Jan, [facility] [place] [facility] [address] [id number] [place] [address]- 4679 Jan, [facility] [address] [id number] [place] [address]- 3979 Jan, [facility] [place] [facility] [address] [id number] [place] [address]- 9708 Jan, [facility] [address] [id number] [place] [address]- 0410 Dec, [facility] [place] [facility] [address] [id number] [place] [address]- 9646 Dec, [facility] [place] [facility] [address] [id number] [place] [address]- 5700 Dec, [facility] [address] [id number] [place] [address]- 4820 Dec, [facility] [address] [id number] [place] [address]- 5498 Dec, [facility] [address] [facility] [id number] [place] [address]- 0422 Dec, [facility] [place] [facility] [address] [id number] [place] [address]- 6334 Dec, [facility] [place] [facility] [address] [id number] [place] [address]- 7780 Dec, [facility] [place] [facility] [address] [id number] [place] [address]- 0910 Nov, [facility] [place] [facility] [address] [id number] [place] [address]- 1842 Nov, [facility] [place] [facility] [address] [id number] [place] [address]- 2546 Nov, [facility] [place] [facility] [address] [id number] [place] [address]- 0231 Nov, [facility] [place] [facility] [address] [id number] [place] [address]- 8346 Nov, [facility] [place] [facility] [address] [id number] [place] [address]- 4784 Nov, [facility] [place] [facility] [address] [id number] [place] [address]- 1798 Nov, [facility] [place] [facility] [address] [id number] [place] [address]- 8052 Oct, [facility] [place] [facility] [address] [id number] [place] [address]- 5939 Oct, [facility] [place] [facility] [address] [id number] [place] [address]- 5051 Oct, [facility] [place] [facility] [address] [id number] [place] [address]- 6530 Oct, [facility] [place] [facility] [address] [id number] [place] [address]- 3972 Oct, [facility] [place] [facility] [address] [id number] [place] [address]- 2590 Oct, [facility] [place] [facility] [address] [id number] [place] [address]- 4144 Oct, [facility] [place] [facility] [address] [id number] [place] [address]- 3025 Oct, [facility] [place] [facility] [address] [id number] [place] [address]- 7178 Sep, [facility] [place] [facility] [address] [id number] [place] [address]- 2503 Sep, [facility] [place] [facility] [address] [id number] [place] [address]- 7028 Sep, [facility] [place] [facility] [address] [id number] [place] [address]- 1571 Sep, [facility] [place] [facility] [address] [id number] [place] [address]- 7336 Sep, [facility] [place] [facility] [address] [id number] [place] [address]- 2471 Sep, [facility] [place] [facility] [address] [id number] [place] [address]- 7783 Sep, [facility] [place] [facility] [address] [id number] [place] [address]- 9233 Sep, [facility] [place] [facility] [address] [id number] [place] [address]- 1158 Sep, [facility] [place] [facility] [address] [id number] [place] [address]- 5997 Sep, [facility] [place] [facility] [address] [id number] [place] [address]- 9294 Sep, [facility] [place] [facility] [address] [id number] [place] [address]- 3273 Sep, [facility] [place] [facility] [address] [id number] [place] [address]- 8438 Sep, [facility] [place] [facility] [address] [id number] [place] [address]- 6858 Sep, [facility] [place] [facility] [address] [id number] [place] [address]- 3717 Sep, [facility] [place] [facility] [address] [id number] [place] [address]- 5406 Sep, [facility] [place] [facility] [address] [id number] [place] [address]- 4159 Sep, [facility] [place] [facility] [address] [id number] [place] [address]- 5513 Sep, [facility] [place] [facility] [address] [id number] [place] [address]- 0214 Sep, [facility] [place] [facility] [address] [id number] [place] [address]- 1475 Sep, [facility] [place] [facility] [address] [id number] [place] [address]- 3862 Aug, [facility] [place] [facility] [address] [id number] [place] [address]- 8042 Aug, [facility] [place] [facility] [address] [id number] [place] [address]- 2090 Aug, [facility] [place] [facility] [address] [id number] [place] [address]- 8570 Aug, [facility] [place] [facility] [address] [id number] [place] [address]- 1304 Aug, [facility] [place] [facility] [address] [id number] [place] [address]- 2642 Aug, [facility] [place] [facility] [address] [id number], [place] [address]- 8461 Aug, [facility] [place] [facility] [address] [id number], [place] [address]- 0979 Aug, [facility] [place] [facility] [address] [facility] [id number], [place] [address]- 8743 Aug, [facility] [place] [facility] [address] [facility] [id number], [place] [address]- 6583 16 Aug, 2012 [facility] [place] [facility] [address] [id number], [place] [address]- 2680 15 Aug, 2012 [facility] [place] [facility] [address] [id number], [place] [address]- 2705 Aug, [facility] [place] [facility] [address] [id number], [place] [address]- 4498 Aug, [facility] [place] [facility] [address] [facility] [id number], [place] [address]- 9286 Aug, [facility] [place] [facility] [address] [id number], [place] [address]- 4145 04 Aug, 2012 [facility] [address] [id number] [place] [address]- 0688 14 Jul, 2012 [facility] [place] [facility] [address] [id number] [place] [address]- 1966 10 Jul, 2012 [facility] [place] [facility] [address] [id number] [place] [address]- 2186 31 Jun, 2012 [facility] [place] [facility] [address] [id number] [place] [address]- 2751 Jun, [facility] [place] [facility] [address] [id number] [place] [address]- 2416 31 May, 2012 [facility] [place] [facility] [address] [id number] [place] [address]- 3197 May, [facility] [address] [id number] [place] [address]- 2277 May, [facility] [place] [facility] [address] [id number] [place] [address]- 0597 May, [facility] [place] [facility] [address] [id number] [place] [address]- 9248 May, [facility] [place] [facility] [address] [id number] [place] [address]- 2302 May, [facility] [place] [facility] [address] [id number] [place] [address]- 4855 Apr, [facility] [place] [facility] [address] [id number] [place] [address]- 0829 Apr, [facility] [place] [facility] [address] [id number] [place] [address]- 2719 March, [facility] [place] [facility] [address] [id number] [place] [address]- 7474 March, [facility] [place] [facility] [address] [id number] [place] [address]- 0505 March, [facility] [place] [facility] [address] [id number] [place] [address]- 3392 15 Mar, 2012 [facility] [place] [facility] [address] [id number] [place] [address]- 0926 March, [facility] [place] [facility] [address] [id number] [place] [address]- 9976 March, [facility] [place] [facility] [address] [id number] [place] [address]- 6775 Feb, [facility] [place] [facility] [address] [id number] [place] [address]- 5897 Feb, [facility] [place] [facility] [address] [id number] [place] [address]- 1331 Feb, [facility] [place] [facility] [address] [id number] [place] [address]- 7639 Feb, [facility] [place] [facility] [address] [id number] [place] [address]- 3122 Feb, [facility] [place] [facility] [address] [id number] [place] [address]- 9479 Feb, [facility] [place] [facility] [address] [id number] [place] [address]- 1173 Feb, [facility] [place] [facility] [address] [id number] [place] [address]- 2513 Feb, [facility] [place] [facility] [address] [id number] [place] [address]- 5772 Feb, [facility] [place] [facility] [address] [id number] [place] [address]- 4429 Jan, [facility] [place] [facility] [address] [id number] [place] [address]- 0152 Jan, [facility] [place] [facility] [address] [id number] [place] [address]- 5014 Jan, [facility] [place] [facility] [address] [id number] [place] [address]- 3005 22 Jan, 2012 [facility] [place] [facility] [address] [id number] [place] [address]- 0876 21 Jan, 2012 [facility] [place] [facility] [address] [id number] [place] [address]- 5350 20 Jan, 2012 [facility] [place] [facility] [address] [id number] [place] [address]- 0299 14 Jan, 2012 [facility] [place] [facility] [address] [id number] [place] [address]- 4229 09 Jan, 2012 [facility] [place] [facility] [address] [id number] [place] [address]- 9818 09 Jan, 2012 [facility] [place] [facility] [address] [id number] [place] [address]- 3701 08 Jan, 2012 [facility] [place] [facility] [address] [id number] [place] [address]- 3305 07 Jan, 2012 [facility] [place] [facility] [address] [id number] [place] [address]- 9940 06 Jan, 2012 [facility] [place] [facility] [address] [id number] [place] [address]- 6421 02 Jan, 2012 [facility] [place] [facility] [address] [id number] [place] [address]- 9112 02 Jan, 2012 [facility] [place] [facility] [address] [id number] [place] [address]- 0320 28 Dec, 2011 [facility] [place] [facility] [address] [id number] [place] [address]- 4119 27 Dec, 2011 [facility] [place] [facility] [address] [id number] [place] [address]- 8769 25 Dec, 2011 [facility] [place] [facility] [address] [id number] [place] [address]- 9228 23 Dec, 2011 [facility] [place] [facility] [address] [id number] [place] [address]- 0726 16 Dec, 2011 [facility] [place] [facility] [address] [id number] [place] [address]- 5366 08 Dec, 2011 [facility] [address] [id number] [place] [address]- 9306 08 Dec, 2011 [facility] [place] [facility] [address] [id number] [place] [address] 2546 Dec, [facility] [address] [id number] [place] [address] 2546 Dec, [facility] [place] [facility] [address] [id number] [place] [address] 2549 Nov, [facility] [place] [facility] [address] [id number] [place] [address]- 0546 Nov, [facility] [address] [id number] [place] [address]- 2182 Nov, [facility] [address] [id number] [place] [address]- 7023 Nov, [facility] [address] [id number] [place] [address]- 1890 Oct, [facility] [address] [id number] [place] [address]- 2542 Oct, [facility] [address] [id number] [place] [address]- 4966 Oct, [facility] [address] [id number] [place] [address] 2546 Oct, [facility] [place] [facility] [address] [id number] [place] [address] 2546 Oct, [facility] [place] [facility] [address] [id number] [place] [address] 2546 Oct, [facility] [place] [facility] [address] [id number] [place] [address] 2546 05 Oct, 2011 [facility] [place] [facility] [address] [id number] [place] [address]- 2520 Sep, [facility] [place] [facility] [address] [id number] [place] [address]- 4392 Sep, [facility] [place] [facility] [address] [id number] [place] [address]- 2324 Sep, [facility] [place] [facility] [address] [id number] [place] 5875 Sep, [facility] [place] [facility] [address] [id number] [place] [address]- 5476 Sep, [facility] [place] [facility] [address] [id number] [place] [address]- 6469 Sep, [facility] [place] [facility] [address] [id number] [place] [address]- 5258 Sep, [facility] [place] [facility] [address] [id number] [place] [address]- 5049 Sep, [facility] [place] [facility] [address] [id number], [place] [address]- 9835 Sep, [facility] [place] [facility] [address] [id number] [place] [address]- 5992 Aug, [facility] [place] [facility] [address] [id number] [place] [address]- 5751 Aug, [facility] [place] [facility] [address] [id number], [place] [address]- 5315 Aug, [facility] [place] [facility] [address] [id number], [place] [address]- 9783 May, [facility] [place] [facility] [address] [id number] [place] [address]- 9270 Nov, [facility] [place] [facility] [address] [id number], [place] [address]- 1306 Oct, [facility] [place] [facility] [address] [id number] [place] 5255 Oct, [facility] [place] [facility] [address] [id number] [place] [address]- 5817 30 Oct, 2010 [facility] [address] [id number] [place] [address]- 5066 02 Oct, 2010 [facility] [place] [facility] [address] [id number] [place] [address] 2546 Oct, [facility] [address] [id number] [place] [address]- 6716 03 Sep, 2010 [facility] [address] [id number] [place] [address] 2546 Sep, [facility] [address] [id number] [place] [address]- 4020 14 Jul, 2010 [facility] [address] [id number] [place] [address]- 8460 31 Oct, 2009 [facility] [address] [id number] [place] [address]- 8324 Oct, [facility] [address] [id number] [place] [address]- 2147 Oct, [facility] [address] [id number] [place] [address]- 9200 Oct, [facility] [address] [facility] [id number] [place] [address]- 8797 30 Sep, 2009 [facility] [address] [id number] [place] [address] 2546 Sep, [facility] [place] [facility] [address] [id number], [place] [address] 2545 Sep, [facility] [place] [facility] [address] [id number] [place] [address] 2541 04 Sep, 2009 [facility] [place] [facility] [address] [facility] [id number] [place] [address] 2546 03 Sep, 2009 [facility] [place] [facility] [address] [id number], [place] [address]- 2617 Jul, [facility] [place] [address] [facility] [id number] [place] [address]- 7205 Apr, [facility] [place] [address] [facility] [id number] [place] [address] 12 Dec, 2008 IMMUNIZATIONS No Known Immunizations SOCIAL HISTORY Never Assessed REASON FOR VISIT Prior Authorization Initiated PLAN OF CARE VITAL SIGNS MEDICATIONS Unknown Medications RESULTS No Results PROCEDURES No Known procedures INSTRUCTIONS MEDICATIONS ADMINISTERED No Known Medications MEDICAL (GENERAL) HISTORY Type Description Date Medical History hypertension Medical History hyperlipidemia Medical History diabetes type II Medical History COPD Medical History asthma Surgical History hysterectomy Surgical History arthritis surgery Hospitalization History surgeries
--- OUTSIDE RECORDS SUMMARY | 2018-11-26 15:47 | XMS REPORT ---
Author Author KING FISHMAN Organization [facility] Address [address] [place] [address] Care Team Providers Care Entry Analyst Name Role Phone KING FISHMAN Unavailable PROBLEMS Type Condition ICD9-CM Code PWC84-TI Code Onset Dates Condition Status SNOMED Code Problem Lumbago with sciatica, left side M54.42 Active 084161308 Problem Other chronic pain G89.29 Active 39357009 Problem Lumbago with sciatica, right side M54.41 Active [id number] Problem Iron deficiency anemia due to chronic blood loss D50.0 Active 007063016 Problem Seizures R56.9 Active 64645109 Problem Chronic obstructive pulmonary disease, unspecified COPD type J44.9 Active 68540764 Problem Pain in right ankle and joints of right foot M25.571 Active 63932996208458 Problem DM 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 Active 54615682 Problem Cigarette nicotine dependence without complication F17.210 Active 07437339 Problem Mixed hyperlipidemia E78.2 Active 147160222 Problem Essential hypertension I10 Active 83808770 Problem Prediabetes R73.03 Active 292123768 Problem Acquired hypothyroidism E03.9 Active 509577723 Problem Reactive depression F32.9 Active 05826331 Problem Gastroesophageal reflux disease, esophagitis presence not specified K21.9 Active 363082374 ALLERGIES No Information ENCOUNTERS Encounter Location Date Diagnosis [facility] [address] [facility] [id number] [address] Oct, [facility] [place] [id number] [place] [address] 41517- 8199 Jul, Onychomycosis B35.1 ; Onychocryptosis L60.0 and DM 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 [facility] [place] [address] [facility] [id number] [address] Jun, Pain in thoracic spine M54.6 [facility] [place] [id number] [place] [address] 56509- 4448 Jun, Iron deficiency anemia due to chronic blood loss D50.0 and Hematochezia K92.1 [facility] [place] [id number] [place] [address] 74464- 6756 Jun, Gastroenteritis K52.9 and Abnormal RBC indices R71.8 [facility] [place] [address] [address]- 6793 Jun, [facility] [place] [address] [address]- 8189 Jun, Chest congestion R09.89 and Seizures R56.9 [facility] [place] [address] [address]96- 2585 May, Pain in thoracic spine M54.6 [facility] [place] [id number] [place] [address] 24546- 0025 May, [facility] [place] [id number] [place] [address] 23546- 9677 May, [facility] [place] [id number] [place] [address] 89306- 3797 May, [facility] [place] [id number] [place] [address] 42867- 4886 May, Acute non-recurrent frontal sinusitis J01.10 and Dermatitis L30.9 [facility] [place] [id number] [place] [address] 03950 2541 May, [facility] [place] [id number] [place] [address] 25429- 5543 May, Pain in thoracic spine M54.6 [facility] [place] [id number] [place] [address] 86739- 9676 May, [facility] [place] [id number] [place] [address] 54923- 2333 May, Acute nasopharyngitis J00 [facility] [place] [id number] [address] 7540 May, [facility] [place] [id number] [place] [address] 47736- 6149 May, [facility] [place] [id number] [place] [address] 58096- 2006 Apr, [facility] [place] [id number] [place] [address] 60634- 8176 Apr, [facility] [place] [id number] [place] [address] 48844- 0105 Apr, [facility] [place] [id number] [place] [address] 85923- 9527 Apr, [facility] [place] [id number] [place] [address] 48262- 4410 Apr, Pain in right ankle and joints of right foot M25.571 [place] [id number] [place] [address] 88007- 6060 Apr, [facility] [place] [id number] [place] [address] 49480- 9901 Apr, Bronchitis J40 ; Pain in right ankle and joints of right foot M25.571 ; Other chronic pain G89.29 ; Prediabetes R73.03 ; Chronic obstructive pulmonary disease, unspecified COPD type J44.9 and Cigarette nicotine dependence without complication F17.210 [facility] [id number] [address] 13 Apr, 2018 Seasonal allergic rhinitis, unspecified trigger J30.2 [facility] [place] [id number] [place] [address] 68974- 6706 08 Apr, 2018 Onychomycosis B35.1 ; Onychocryptosis L60.0 and DM 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 [facility] [place] [id number] [place] [address] 53701- 3209 Apr, Reactive depression F32.9 ; Thoracic myofascial strain, initial encounter S29.019A and Leg cramps R25.2 [place] [address] 14123- 6143 March, [place] [address] 61744- 1358 March, Type 2 diabetes mellitus with hyperglycemia E11.65 [place] [address] 00663- 3517 March, Reactive depression F32.[address] 40547- 6773 March, Pain in thoracic spine M54.6 and Other chronic pain G89.29 [place] [address] 01905- 9606 Feb, [place] [address] 93348- 8885 Jan, Reactive depression F32.9 ; Essential hypertension I10 ; Gastroesophageal reflux disease, esophagitis presence not specified K21.9 ; Lumbago with sciatica, left side M54.42 and Lumbago with sciatica, right side M54.41 [place] [address] 46396- 2931 Jan, Reactive depression F32.9 and Pharyngoesophageal dysphagia R13.14 [place] [address] 18903- 2055 Jan, [place] [address] 56116- 3341 Jan, Encounter for immunization Z23 [place] [address] 18478- 9573 Jan, Onychomycosis B35.1 and DM 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 88326- 9608 Jan, [facility] [place] [id number] [place] [address] 11506- 8103 Jan, Prediabetes R73.03 [facility] [place] [id number] [place] [address] 17864- 8720 Dec, [facility] [place] [address] 06559- 9113 Dec, Essential hypertension I10 ; Mixed hyperlipidemia E78.2 ; Acquired hypothyroidism E03.9 ; Reactive depression F32.9 and Prediabetes R73.03 [place] [id number] [place] [address] 86830- 0913 Dec, [facility] [place] [id number] [place] [address] 06720- 3553 Dec, [place] [address] 54267- 5259 Dec, DM 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 [facility] [id number] [place] [address] 85427 -6452 Dec, Bruise T14.8XXA ; Type 2 diabetes mellitus with hyperglycemia E11.65 and care home current use of insulin Z79.4 [place] [id number] [place] [address] 61682- 7675 Oct, [place] [id number] [place] [address] 82681- 5866 March, Onychomycosis B35.1 and DM 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 [place] [id number] [place] [address] 60941- 6656 Jun, [facility] [place] [id number] [place] [address] 67675- 1621 Jun, [facility] [place] [id number] [place] [address] 18010- 0563 Jun, COPD with acute exacerbation 491.21 [facility] [place] [facility] [address] [id number] [place] [address]- 5345 15 Apr, 2015 [facility] [place] [facility] [address] [id number] [place] [address]- 3983 14 Feb, 2015 [facility] [place] [facility] [address] [id number] [place] [address]- 6185 Feb, [facility] [place] [facility] [address] [id number] [place] [address]- 0500 Jan, [facility] [place] [facility] [address] [id number] [place] [address]- 1234 Jan, [facility] [place] [facility] [address] [id number] [place] [address]- 3339 Jan, [facility] [place] [facility] [address] [id number] [place] [address]- 0929 Jan, [facility] [place] [facility] [address] [id number] [place] [address]- 0894 Jan, [facility] [place] [facility] [address] [id number] [place] [address]- 4184 Jan, [facility] [place] [facility] [address] [id number] [place] [address]- 2964 Jan, [facility] [place] [facility] [address] [id number] [place] [address]- 8778 Jan, [facility] [place] [facility] [address] [id number], [place] [address]- 9402 Jan, [facility] [place] [facility] [address] [id number] [place] [address]- 3008 Jan, [facility] [place] [facility] [address] [id number] [place] [address]- 4642 Jan, [facility] [place] [facility] [address] [id number] [place] [address]- 9771 Jan, [facility] [place] [facility] [address] [id number] [place] [address]- 0762 18 Jan, 2014 [facility] [place] [facility] [address] [id number] [place] [address]- 5255 16 Jan, 2014 [facility] [place] [facility] [address] [id number] [place] [address]- 5596 16 Jan, 2014 [facility] [place] [facility] [address] [id number] [place] [address]- 0909 16 Jan, 2014 [facility] [place] [facility] [address] [id number] [place] [address]- 1207 16 Jan, 2014 [facility] [place] [facility] [address] [id number] [place] [address]- 6940 15 Jan, 2015 [facility] [place] [facility] [address] [id number] [place] [address]- 8814 13 Jan, 2014 [facility] [place] [facility] [address] [id number] [place] [address]- 4418 13 Jan, 2014 [facility] [place] [facility] [address] [id number] [place] [address]- 6233 13 Jan, 2015 [facility] [place] [facility] [address] [id number] [place] [address]- 8812 13 Jan, 2014 [facility] [place] [facility] [address] [id number] [place] [address]- 8586 12 Jan, 2015 [facility] [place] [facility] [address] [id number] [place] [address]- 0341 04 Jan, 2015 [facility] [place] [facility] [address] [id number] [place] [address]- 7020 04 Jan, 2015 [facility] [place] [facility] [address] [id number] [place] [address]- 4142 24 Dec, 2014 [facility] [place] [facility] [address] [id number] [place] [address]- 2395 24 Dec, 2014 [facility] [place] [facility] [address] [id number] [place] [address]- 1879 Dec, [facility] [place] [facility] [address] [id number] [place] [address]- 0055 Dec, [facility] [place] [facility] [address] [id number] [place] [address]- 4836 Dec, [facility] [place] [facility] [address] [id number] [place] [address]- 1944 Dec, [facility] [place] [facility] [address] [id number] [place] [address]- 2170 Dec, [facility] [place] [facility] [address] [id number] [place] [address]- 0318 Dec, [facility] [place] [facility] [address] [id number] [place] [address]- 3152 Dec, [facility] [place] [facility] [address] [id number] [place] [address]- 4252 Dec, [facility] [place] [facility] [address] [id number] [place] [address]- 9046 Dec, [facility] [place] [facility] [address] [id number] [place] [address]- 0674 Dec, [facility] [place] [facility] [address] [id number] [place] [address]- 6857 Nov, [facility] [place] [facility] [address] [id number] [place] [address]- 8274 Nov, [facility] [place] [facility] [address] [id number] [place] [address]- 9950 Nov, [facility] [place] [facility] [address] [id number] [place] [address]- 1469 Nov, [facility] [place] [facility] [address] [id number] [place] [address]- 8793 Nov, [facility] [place] [facility] [address] [id number] [place] [address]- 2804 Nov, [facility] [place] [facility] [address] [id number] [place] [address]- 4012 15 Nov, 2014 [facility] [address] [id number] [place] [address]- 3589 Nov, [facility] [address] [id number] [place] [address]- 3197 Nov, [facility] [address] [id number] [place] [address]- 4254 Nov, [facility] [address] [id number] [place] [address]- 7548 Nov, [facility] [address] [id number] [place] [address]- 1470 Nov, [facility] [address] [id number] [place] [address]- 1046 Oct, [facility] [address] [id number] [place] [address]- 3289 Oct, [facility] [address] [id number] [place] [address]- 4664 Oct, [facility] [address] [id number] [place] [address]- 6280 Oct, [facility] [address] [id number] [place] [address]- 3851 Oct, [facility] [address] [id number] [place] [address]- 3567 29 Oct, 2014 [facility] [address] [id number] [place] [address]- 7220 Oct, [facility] [place] [facility] [address] [id number] [place] [address]- 2226 Oct, [facility] [place] [facility] [address] [id number] [place] [address]- 2806 Oct, [facility] [place] [facility] [address] [id number] [place] 1942 Oct, [facility] [place] [facility] [address] [id number] [place] [address]- 7263 16 Oct, 2014 [facility] [place] [facility] [address] [id number] [place] [address]- 7677 Oct, [facility] [place] [facility] [address] [id number] [place] [address]- 5881 Oct, [facility] [place] [facility] [address] [id number] [place] [address]- 9961 Oct, [facility] [place] [facility] [address] [id number] [place] [address]- 1674 Oct, [facility] [place] [facility] [address] [id number] [place] [address]- 2735 Sep, [facility] [place] [facility] [address] [id number] [place] [address]- 7305 Sep, [facility] [place] [facility] [address] [id number] [place] [address]- 6443 Sep, [facility] [place] [facility] [address] [id number] [place] [address]- 8955 Sep, [facility] [place] [facility] [address] [id number], [place] [address]- 0634 Aug, [facility] [place] [facility] [address] [id number], [place] [address]- 4193 Aug, [facility] [place] [facility] [address] [id number], [place] [address]- 4047 Aug, [facility] [place] [facility] [address] [id number], [place] [address]- 6300 Aug, [facility] [place] [facility] [address] [id number], [place] [address]- 6371 Aug, [facility] [place] [facility] [address] [id number], [place] [address]- 0577 Aug, [facility] [place] [facility] [address] [id number], [place] [address]- 9607 Jul, [facility] [place] [facility] [address] [id number] [place] [address]- 2435 29 Jul, 2014 [facility] [place] [facility] [address] [id number] [place] [address]- 1619 Jul, [facility] [place] [facility] [address] [id number] [place] [address]- 7695 Jul, [facility] [place] [facility] [address] [id number] [place] [address]- 1319 Jul, [facility] [place] [facility] [address] [id number] [place] [address]- 3516 Jul, [facility] [place] [facility] [address] [id number] [place] [address]- 1279 Jun, [facility] [place] [facility] [address] [id number] [place] [address]- 2413 Jun, [facility] [place] [facility] [address] [id number] [place] [address]- 0285 Jun, [facility] [place] [facility] [address] [id number] [place] [address]- 8055 Jun, [facility] [place] [facility] [address] [id number] [place] [address]- 2529 Jun, [facility] [place] [facility] [address] [id number] [place] [address]- 0149 Jun, [facility] [place] [facility] [address] [id number] [place] [address]- 5884 Jun, [facility] [place] [facility] [address] [id number] [place] [address]- 8380 May, [facility] [place] [facility] [address] [id number] [place] [address]- 1256 May, [facility] [place] [facility] [address] [id number] [place] [address]- 5815 May, [facility] [place] [facility] [address] [id number] [place] [address]- 6767 May, 2013 [facility] [place] [facility] [address] [id number] [place] [address]- 3055 May, 2013 [facility] [place] [facility] [address] [id number] [place] [address]- 4976 May, 2013 [facility] [place] [facility] [address] [id number] [place] [address]- 3898 May, 2013 [facility] [place] [facility] [address] [id number] [place] [address]- 2254 May, 2013 [facility] [place] [facility] [address] [id number] [place] [address]- 0195 May, [facility] [place] [facility] [address] [id number] [place] [address]- 0351 May, [facility] [place] [facility] [address] [id number] [place] [address]- 9969 May, [facility] [place] [facility] [address] [id number] [place] [address]- 0177 May, [facility] [place] [facility] [address] [id number] [place] [address]- 8086 Apr, [facility] [place] [facility] [address] [id number] [place] [address]- 5150 Apr, [facility] [place] [facility] [address] [id number] [place] [address]- 1618 Apr, [facility] [place] [facility] [address] [id number] [place] [address]- 1719 Apr, [facility] [place] [facility] [address] [id number] [place] [address]- 9340 Apr, [facility] [place] [facility] [address] [id number] [place] [address]- 9706 Apr, [facility] [place] [facility] [address] [id number] [place] [address]- 2900 Apr, [facility] [place] [facility] [address] [id number] [place] [address]- 1559 Apr, [facility] [place] [facility] [address] [id number] [place] [address]- 8638 Apr, [facility] [place] [facility] [address] [id number] [place] [address]- 1727 Apr, [facility] [place] [facility] [address] [id number] [place] [address]- 1375 March, [facility] [place] [facility] [address] [id number] [place] [address]- 4726 March, [facility] [place] [facility] [address] [id number] [place] [address]- 9560 March, [facility] [place] [facility] [address] [id number] [place] [address]- 4842 March, [facility] [place] [facility] [address] [id number] [place] [address] March, [facility] [place] [facility] [address] [id number] [place] [address] March, [facility] [place] [facility] [address] [id number] [place] [address] Feb, [facility] [place] [facility] [address] [id number] [place] [address] Feb, [facility] [place] [facility] [address] [id number] [place] [address] Feb, [facility] [place] [facility] [address] [id number] [place] [address] Feb, [facility] [place] [facility] [address] [id number] [place] [address] Feb, [facility] [place] [facility] [address] [id number] [place] [address] 89[address] Feb, [facility] [place] [facility] [address] [id number] [place] [address] Feb, [facility] [place] [facility] [address] [id number] [place] [address] Feb, [facility] [place] [facility] [address] [id number] [place] [address] Feb, [facility] [place] [facility] [address] [id number] [place] [address] Feb, [facility] [place] [facility] [address] [id number] [place] [address] Jan, [facility] [place] [facility] [address] [id number] [place] [address] Jan, [facility] [place] [facility] [address] [id number] [place] [address] Jan, [facility] [place] [facility] [address] [id number] [place] [address] Jan, [facility] [place] [facility] [address] [id number] [place] [address] Jan, [facility] [place] [facility] [address] [id number] [place] [address] Jan, [facility] [place] [facility] [address] [facility] [id number] [place] [address] Jan, [facility] [place] [facility] [address] [id number] [place] [address] Jan, [facility] [place] [facility] [address] [id number] [place] [address] Dec, [facility] [place] [facility] [address] [id number] [place] [address] Dec, [facility] [place] [facility] [address] [id number] [place] [address] Dec, [facility] [place] [facility] [address] [id number] [place] [address] Dec, [facility] [place] [facility] [address] [id number] [place] [address] Dec, [facility] [place] [facility] [address] [id number] [place] [address] Dec, [facility] [place] [facility] [address] [id number] [place] [address] Dec, [facility] [place] [facility] [address] [id number] [place] [address] Dec, [facility] [place] [facility] [address] [id number] [place] [address] Nov, [facility] [place] [facility] [address] [id number] [place] [address] Nov, [facility] [place] [facility] [address] [id number] [place] [address] Nov, [facility] [place] [facility] [address] [id number] [place] [address] Nov, [facility] [place] [facility] [address] [id number] [place] [address] 79[address] Nov, [facility] [place] [facility] [address] [id number] [place] [address] Nov, [facility] [place] [facility] [address] [id number], [place] [address] Nov, [facility] [place] [facility] [address] [id number], [place] [address] Nov, [facility] [place] [facility] [address] [id number] [place] [address] 58[address] Nov, [facility] [place] [facility] [address] [id number] [place] [address] Nov, [facility] [place] [facility] [address] [id number] [place] [address] Nov, [facility] [place] [facility] [address] [id number] [place] [address] 17[address] Oct, [facility] [address] [id number] [place] [address] Oct, [facility] [place] [facility] [address] [id number] [place] [address] Oct, [facility] [place] [facility] [address] [id number] [place] [address] 49[address] Oct, [facility] [place] [facility] [address] [id number] [place] [address] Sep, [facility] [place] [facility] [address] [id number] [place] [address] Sep, [facility] [place] [facility] [address] [id number] [place] [address] 74[address] Sep, [facility] [place] [facility] [address] [id number] [place] [address] Sep, [facility] [place] [facility] [address] [id number] [place] [address] Aug, [facility] [place] [facility] [address] [id number] [place] [address] 84[address] Aug, [facility] [place] [facility] [address] [facility] [id number] [place] [address] Aug, [facility] [place] [facility] [address] [id number] [place] [address]- [address] Aug, [facility] [place] [facility] [address] [id number], [place] [address] Aug, [facility] [place] [facility] [address] [id number] [place] [address]- 1696 Aug, [facility] [place] [facility] [address] [facility] [id number] [place] [address] Aug, [facility] [facility] [address] [id number] [address] Aug, [facility] [place] [facility] [address] [id number] [place] [address] 9765 28 Jul, 2012 [facility] [place] [facility] [address] [id number] [place] [address] 2541 27 Sep, 2012 [facility] [place] [facility] [address] [id number] [place] [address] 2540 26 Jul, 2012 [facility] [place] [facility] [address] [id number] [place] [address] 2544 24 Jul, 2012 [facility] [address] [id number] [place] [address]- 2549 24 Jul, 2012 [facility] [place] [facility] [address] [id number] [place] [address]- 5525 23 Jul, 2012 [facility] [address] [id number] [place] [address] 9297 19 Jul, 2012 [facility] [address] [id number] [place] [address]- 1584 18 Jul, 2012 [facility] [address] [id number] [place] [address] 9913 17 Jul, 2012 [facility] [place] [facility] [address] [id number] [place] [address]- 8541 16 Jul, 2012 [facility] [place] [facility] [address] [id number] [place] [address]- 2548 13 Jul, 2012 [facility] [place] [facility] [address] [id number] [place] [address]- 254 13 Jul, 2012 [facility] [place] [facility] [address] [id number] [place] [address]- 2541 12 Jul, 2012 [facility] [place] [facility] [address] [id number] [place] [address]- 254 11 Jul, 2012 [facility] [place] [address] [id number] [place] [address]- 2541 04 Sep, 2012 [facility] [place] [address] [id number] [place] [address]- 2546 Jun, [facility] [place] [facility] [address] [id number] [place] [address]- 6874 Jun, [facility] [place] [facility] [address] [id number] [place] [address]- 1794 Jun, [facility] [place] [address] [id number] [place] [address]- 9579 May, [facility] [place] [facility] [address] [id number] [place] [address]- 2650 May, [facility] [place] [facility] [address] [id number] [place] [address]- 3169 May, [facility] [address] [id number] [place] [address]- 6374 May, [facility] [place] [address] [id number] [place] [address]- 6282 Apr, [facility] [place] [address] [id number] [place] [address]- 7958 Apr, [facility] [place] [address] [id number] [place] [address]- 3159 Apr, [facility] [place] [address] [id number] [place] [address]- 2114 Apr, [facility] [place] [facility] [address] [id number] [place] [address]- 1426 March, [facility] [place] [facility] [address] [id number] [place] [address]- 1896 March, [facility] [place] [facility] [address] [id number] [place] [address]- 0411 March, [facility] [place] [facility] [address] [id number] [place] [address]- 8108 Feb, [facility] [place] [facility] [address] [id number] [place] [address]- 7107 Feb, [facility] [place] [facility] [address] [id number] [place] [address]- 0375 Jan, [facility] [address] [id number] [place] [address]- 4579 Jan, [facility] [address] [id number] [place] [address]- 5795 Jan, [facility] [address] [id number] [place] [address]- 2560 Jan, [facility] [place] [facility] [address] [id number] [place] [address]- 9969 Jan, [facility] [address] [id number] [place] [address]- 0724 Dec, [facility] [address] [id number] [place] [address]- 7992 Dec, [facility] [facility] [address] [id number] [place] [address]- 7485 Dec, [facility] [address] [id number] [place] [address]- 8002 Dec, [facility] [address] [id number] [place] [address]- 0904 Dec, [facility] [address] [facility] [id number] [place] [address]- 8626 Dec, [facility] [address] [id number] [place] [address]- 4404 Dec, [facility] [address] [id number] [place] [address]- 1867 Dec, [facility] [address] [id number] [place] [address]- 6630 Nov, [facility] [address] [id number] [place] [address]- 3864 Nov, [facility] [address] [id number] [place] [address]- 2546 Nov, [facility] [address] [id number] [place] [address]- 4838 Nov, [facility] [address] [id number] [place] [address]- 4756 Nov, [facility] [address] [id number] [place] [address]- 8076 Nov, [facility] [address] [id number] [place] [address]- 2756 Nov, [facility] [address] [id number] [place] [address]- 5508 Oct, [facility] [address] [id number] [place] [address]- 2648 Oct, [facility] [address] [id number] [place] [address]- 6011 Oct, [facility] [address] [id number] [place] [address]- 2292 Oct, [facility] [address] [id number] [place] [address]- 3859 Oct, [facility] [address] [id number] [place] [address]- 7425 Oct, [facility] [address] [id number] [place] [address]- 6663 Oct, [facility] [address] [id number] [place] [address]- 5751 Oct, [facility] [address] [id number] [place] [address]- 8662 Sep, [facility] [address] [id number] [place] [address]- 2159 Sep, [facility] [address] [id number] [place] [address]- 8489 Sep, [facility] [address] [id number] [place] [address]- 6809 Sep, [facility] [address] [id number] [place] [address]- 2242 Sep, [facility] [address] [id number] [place] [address]- 1993 Sep, [facility] [address] [id number] [place] [address]- 7024 Sep, [facility] [address] [id number] [place] [address]- 5702 Sep, [facility] [address] [id number] [place] [address]- 6189 Sep, [facility] [address] [id number] [place] [address]- 1438 Sep, [facility] [address] [id number] [place] [address]- 8610 Sep, [facility] [address] [id number] [place] [address]- 0817 Sep, [facility] [address] [id number] [place] [address]- 7703 Sep, [facility] [address] [id number] [place] [address]- 1976 Sep, [facility] [address] [id number] [place] [address]- 4511 Sep, [facility] [address] [id number] [place] [address]- 9785 Sep, [facility] [address] [id number] [place] [address]- 6525 Sep, [facility] [address] [id number] [place] [address]- 3573 Sep, [facility] [address] [id number] [place] [address]- 3776 Sep, [facility] [address] [id number] [place] [address]- 9244 Sep, [facility] [address] [id number] [place] [address]- 4661 Aug, [facility] [address] [id number] [place] [address]- 1477 Aug, [facility] [address] [id number] [place] [address]- 3894 Aug, [facility] [address] [id number] [place] [address]- 4982 Aug, [facility] [address] [id number] [place] [address]- 1823 Aug, [facility] [address] [id number] [place] [address]- 2949 Aug, [facility] [address] [id number], [place] [address]- 7585 Aug, [facility] [address] [id number], [place] [address]- 4997 Aug, [facility] [address] [facility] [id number], [place] [address]- 7755 Aug, [facility] [address] [facility] [id number], [place] [address]- 9751 16 Aug, 2012 [facility] [address] [id number], [place] [address]- 4883 15 Aug, 2012 [facility] [address] [id number], [place] [address]- 6552 Aug, [facility] [address] [id number], [place] [address]- 5906 Aug, [facility] [address] [facility] [id number], [place] [address]- 3958 Aug, [facility] [address] [id number], [place] [address]- 3080 04 Aug, 2012 [facility] [address] [id number] [place] [address]- 3762 14 Jul, 2012 [facility] [address] [id number] [place] [address]- 3216 10 Jul, 2012 [facility] [address] [id number] [place] [address]- 6546 31 Jun, 2012 [facility] [address] [id number] [place] [address]- 5665 Jun, [facility] [address] [id number] [place] [address]- 4526 31 May, 2012 [facility] [address] [id number] [place] [address]- 4152 May, [facility] [address] [id number] [place] [address]- 3837 May, [facility] [address] [id number] [place] [address]- 3407 May, [facility] [address] [id number] [place] [address]- 1107 May, [facility] [address] [id number] [place] [address]- 4062 May, [facility] [address] [id number] [place] [address]- 1881 Apr, [facility] [address] [id number] [place] [address]- 8800 Apr, [facility] [address] [id number] [place] [address]- 2590 March, [facility] [address] [id number] [place] [address]- 0963 March, [facility] [address] [id number] [place] [address]- 1979 March, [facility] [address] [id number] [place] [address]- 1401 15 Mar, 2012 [facility] [address] [id number] [place] [address]- 7778 March, [facility] [address] [id number] [place] [address]- 7666 March, [facility] [address] [id number] [place] [address]- 8548 Feb, [facility] [address] [id number] [place] [address]- 6084 Feb, [facility] [address] [id number] [place] [address]- 1585 Feb, [facility] [address] [id number] [place] [address]- 8226 Feb, [facility] [address] [id number] [place] [address]- 5231 Feb, [facility] [address] [id number] [place] [address]- 1640 Feb, [facility] [address] [id number] [place] [address]- 6647 Feb, [facility] [address] [id number] [place] [address]- 4340 Feb, [facility] [place] [address] [id number] [place] [address]- 4981 Feb, [facility] [address] [id number] [place] [address]- 9674 Jan, [facility] [place] [address] [id number] [place] [address]- 3243 Jan, [facility] [place] [address] [id number] [place] [address]- 1211 Jan, [facility] [address] [id number] [place] [address]- 7988 22 Jan, 2012 [facility] [address] [id number] [place] [address]- 8734 21 Jan, 2012 [facility] [address] [id number] [place] [address]- 5187 20 Jan, 2012 [facility] [address] [id number] [place] [address]- 0712 14 Jan, 2012 [facility] [address] [id number] [place] [address]- 2349 09 Jan, 2012 [facility] [address] [id number] [place] [address]- 6216 09 Jan, 2012 [facility] [address] [id number] [place] [address]- 4030 08 Jan, 2012 [facility] [address] [id number] [place] [address]- 1674 07 Jan, 2012 [facility] [address] [id number] [place] [address]- 9538 06 Jan, 2012 [facility] [address] [id number] [place] [address]- 2401 02 Jan, 2012 [facility] [address] [id number] [place] [address]- 5701 02 Jan, 2012 [facility] [address] [id number] [place] [address]- 0159 28 Dec, 2011 [facility] [place] [address] [id number] [place] [address]- 5806 27 Dec, 2011 [facility] [place] [facility] [address] [id number] [place] [address]- 9648 25 Dec, 2011 [facility] [place] [facility] [address] [id number] [place] [address]- 7195 23 Dec, 2011 [facility] [place] [facility] [address] [id number] [place] [address]- 8201 16 Dec, 2011 [facility] [place] [facility] [address] [id number] [place] [address]- 6606 08 Dec, 2011 [facility] [address] [id number] [place] [address]- 3716 08 Dec, 2011 [facility] [place] [facility] [address] [id number] [place] [address] 2546 Dec, [facility] [address] [id number] [place] [address] 2546 Dec, [facility] [place] [facility] [address] [id number] [place] [address] 2540 Nov, [facility] [facility] [address] [id number] [place] [address]- 7836 Nov, [facility] [address] [id number] [place] [address]- 0786 Nov, [facility] [address] [id number] [place] [address]- 4496 Nov, [facility] [address] [id number] [place] [address]- 9527 Oct, [facility] [address] [id number] [place] [address]- 2547 Oct, [facility] [address] [id number] [place] [address]- 4336 Oct, [facility] [address] [id number] [place] [address] 2546 Oct, [facility] [address] [id number] [place] [address] 2546 Oct, [facility] [place] [facility] [address] [id number] [place] [address] 2546 Oct, [facility] [address] [id number] [place] [address] 2546 05 Oct, 2011 [facility] [address] [id number] [place] [address]- 9867 Sep, [facility] [place] [facility] [address] [id number] [place] [address]- 8893 Sep, [facility] [place] [facility] [address] [id number] [place] [address]- 8028 Sep, [facility] [place] [facility] [address] [id number] [place] 6089 Sep, [facility] [place] [facility] [address] [id number] [place] [address]- 4192 Sep, [facility] [place] [facility] [address] [id number] [place] [address]- 4731 Sep, [facility] [place] [facility] [address] [id number] [place] [address]- 6939 Sep, [facility] [place] [facility] [address] [id number] [place] [address]- 3517 Sep, [facility] [place] [facility] [address] [id number], [place] [address]- 4502 Sep, [facility] [place] [facility] [address] [id number] [place] [address]- 0091 Aug, [facility] [place] [facility] [address] [id number] [place] [address]- 9054 Aug, [facility] [place] [facility] [address] [id number], [place] [address]- 7210 Aug, [facility] [place] [facility] [address] [id number], [place] [address]- 6408 May, [facility] [place] [facility] [address] [id number] [place] [address]- 6029 Nov, [facility] [place] [facility] [address] [id number], [place] [address]- 8612 Oct, [facility] [place] [facility] [address] [id number] [place] 5379 Oct, [facility] [place] [facility] [address] [id number] [place] [address]- 8814 30 Oct, 2010 [facility] [address] [id number] [place] [address]- 7216 02 Oct, 2010 [facility] [place] [facility] [address] [id number] [place] [address] 2546 Oct, [facility] [address] [id number] [place] [address]- 5236 03 Sep, 2010 [facility] [address] [id number] [place] [address] 2546 Sep, [facility] [address] [id number] [place] [address]- 5506 14 Jul, 2010 [facility] [address] [id number] [place] [address]- 9758 31 Oct, 2009 [facility] [address] [id number] [place] [address]- 7129 Oct, [facility] [address] [id number] [place] [address]- 5160 Oct, [facility] [address] [id number] [place] [address]- 7001 Oct, [facility] [address] [facility] [id number] [place] [address]- 0746 30 Sep, 2009 [facility] [address] [id number] [place] [address] 2546 Sep, [facility] [place] [facility] [address] [id number], [place] [address] 254 Sep, [facility] [place] [facility] [address] [id number] [place] [address] 2548 04 Sep, 2009 [facility] [place] [facility] [address] [facility] [id number] [place] [address] 2546 03 Sep, 2009 [facility] [place] [facility] [address] [id number], [place] [address]- 2944 Jul, [facility] [place] [address] [facility] [id number] [place] [address]- 7361 Apr, [facility] [place] [address] [facility] [id number], [place] [address]- 7679 12 Dec, 2008 IMMUNIZATIONS No Known Immunizations SOCIAL HISTORY Never Assessed REASON FOR VISIT Refill request PLAN OF CARE VITAL SIGNS MEDICATIONS Medication Instructions Dosage Frequency Start Date End Date Duration Status Metformin HCl 500 mg Orally Twice a day 1 tablet with meals 12h 30 days Active RESULTS No Results PROCEDURES No Known procedures INSTRUCTIONS MEDICATIONS ADMINISTERED No Known Medications MEDICAL (GENERAL) HISTORY Type Description Date Medical History hypertension Medical History hyperlipidemia Medical History diabetes type II Medical History COPD Medical History asthma Surgical History hysterectomy Surgical History arthritis surgery Hospitalization History surgeries
--- OUTSIDE RECORDS SUMMARY | 2018-11-26 15:48 | XMS REPORT ---
Author Author KING FISHMAN [facility] Address [address] [place] [address] Care Team Providers Care Float Builder Name Role Phone KING FISHMAN Unavailable PROBLEMS Type Condition ICD9-CM Code GNT91-PF Code Onset Dates Condition Status SNOMED Code Problem Lumbago with sciatica, left side M54.42 Active 618214319 Problem Other chronic pain G89.29 Active 59186630 Problem Lumbago with sciatica, right side M54.41 Active [id number] Problem Iron deficiency anemia due to chronic blood loss D50.0 Active 608753500 Problem Seizures R56.9 Active 39982198 Problem Chronic obstructive pulmonary disease, unspecified COPD type J44.9 Active 69697554 Problem Pain in right ankle and joints of right foot M25.571 Active 58778178431050 Problem DM 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 Active 82528756 Problem Cigarette nicotine dependence without complication F17.210 Active 56056949 Problem Mixed hyperlipidemia E78.2 Active 985298885 Problem Essential hypertension I10 Active 97676469 Problem Prediabetes R73.03 Active 643824666 Problem Acquired hypothyroidism E03.9 Active 163241021 Problem Reactive depression F32.9 Active 04314142 Problem Gastroesophageal reflux disease, esophagitis presence not specified K21.9 Active 216287238 ALLERGIES Substance Reaction Event Type Date Status Penicillin G Potassium anaphylaxis Drug Allergy May, Active Codeine Sulfate anaphylaxis Drug Allergy May, Active Aspirin hives Drug Allergy May, Active Peanut hives Non Drug Allergy May, Active ENCOUNTERS Encounter Location Date Diagnosis [facility] [address] [facility] [id number] [address] Oct, [facility] [address] [facility] [id number], [place] [address] Jul, Onychomycosis B35.1 ; Onychocryptosis L60.0 and DM 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 [facility] [address] [address] Jun, Pain in thoracic spine M54.6 [facility] [address] [address] Jun, Iron deficiency anemia due to chronic blood loss D50.0 and Hematochezia K92.1 [facility] [address] [address] Jun, Gastroenteritis K52.9 and Abnormal RBC indices R71.8 [place] [address] [address]- [address] Jun, [place] [address] [address]- [address] Jun, Chest congestion R09.89 and Seizures R56.9 [place] [address] [address]- [address] May, Pain in thoracic spine M54.6 [facility] [address] [address]- [address] May, [facility] [address] [address]- [address] May, [place] [address] [address]- [address] May, [facility] [address] [address]- [address]125 May, Acute non-recurrent frontal sinusitis J01.10 and Dermatitis L30.9 [facility] [address] [address]- [address] May, [facility] [address] [address]- [address] May, Pain in thoracic spine M54.6 [facility] [address] [place] [address] 16 May, 2018 [facility] [address] [address] May, Acute nasopharyngitis J00 [facility] [address], [place] [address] May, [facility] [address] [place] [id number] [place] [address] 6[address]- 7052 May, [facility] [id number] [place] [address] 04982- 9937 Apr, [facility] [address] [place] [id number] [place] [address] 14804- 9864 Apr, [facility] [id number] [place] [address] 42894- 4682 Apr, [facility] [address] [place] [address] [id number] [place] [address] 72631- 2112 Apr, [facility] [id number] [place] [address] 28753- 7170 Apr, Pain in right ankle and joints of right foot M25.571 [facility] [id number] [address] Apr, [facility] [id number] [place] [address] 23052- 7604 Apr, Bronchitis J40 ; Pain in right ankle and joints of right foot M25.571 ; Other chronic pain G89.29 ; Prediabetes R73.03 ; Chronic obstructive pulmonary disease, unspecified COPD type J44.9 and Cigarette nicotine dependence without complication F17.210 [facility] [address] [address] 13 Apr, 2018 Seasonal allergic rhinitis, unspecified trigger J30.2 [facility] [address], [place] [address] 08 Apr, 2018 Onychomycosis B35.1 ; Onychocryptosis L60.0 and DM 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 [place] [address] [place] [id number] [place] [address]25- 6498 Apr, Reactive depression F32.9 ; Thoracic myofascial strain, initial encounter S29.019A and Leg cramps R25.2 [place] [address] [address]- [address]89 March, [place] [address] 9[address]79- 4384 March, Type 2 diabetes mellitus with hyperglycemia E11.65 [place] [address] 79980- 9054 March, Reactive depression F32.9 [place] [address] 52990- 4933 March, Pain in thoracic spine M54.6 and Other chronic pain G89.29 [place] [address] 88385- 3072 Feb, [place] [address] [address]52- 3896 Jan, Reactive depression F32.9 ; Essential hypertension I10 ; Gastroesophageal reflux disease, esophagitis presence not specified K21.9 ; Lumbago with sciatica, left side M54.42 and Lumbago with sciatica, right side M54.41 [place] [address] [place] [id number] [place] [address] 25334- 8645 Jan, Reactive depression F32.9 and Pharyngoesophageal dysphagia R13.14 [place] [address] 10270- 9603 Jan, [place] [address] 61131- 4973 Jan, Encounter for immunization Z23 [place] [address] 82135- 9061 Jan, Onychomycosis B35.1 and DM 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 [place] [address] [place] [id number] [place] [address] 87055- 0454 Jan, [facility] [address] [place] [id number] [place] [address] 86788- 2298 Jan, Prediabetes R73.03 [facility] [address] 19084- 6827 Dec, [facility] [address] [place] [id number] [place] [address] 13953- 7562 Dec, Essential hypertension I10 ; Mixed hyperlipidemia E78.2 ; Acquired hypothyroidism E03.9 ; Reactive depression F32.9 and Prediabetes R73.03 [place] [address] [place] [id number] [place] [address] 24546- 0409 Dec, [place] [address] [place] [id number] [place] [address] 26907- 3933 Dec, [place] [address] [place] [id number] [place] [address] 04537- 6248 Dec, DM 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 [facility] [address] [place] [id number] [place] [address]74 -2696 Dec, Bruise T14.8XXA ; Type 2 diabetes mellitus with hyperglycemia E11.65 and 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 [place] [address] [place] [id number] [place] [address] 66806- 9483 Oct, [place] [address] [place] [id number] [place] [address] 48167- 1529 March, Onychomycosis B35.1 and DM 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 [place] [address] [place] [id number] [place] [address] 79999- 0728 Jun, [facility] [address] [place] [id number] [place] [address] 01793- 4179 Jun, [facility] [address] [id number] [place] [address]- 2436 Jun, COPD with acute exacerbation 491.21 [facility] [address] [id number] [place] [address]- 7982 15 Apr, 2015 [facility] [address] [id number] [place] [address]- 9052 14 Feb, 2015 [facility] [address] [id number] [place] [address]- 0443 Feb, [facility] [address] [id number] [place] [address]- 4709 Jan, [facility] [address] [id number] [place] [address]- 7308 Jan, [facility] [address] [id number] [place] [address]- 1431 Jan, [facility] [address] [id number] [place] [address]- 4818 Jan, [facility] [address] [id number] [place] [address]- 6831 Jan, [facility] [address] [id number] [place] [address]- 2926 Jan, [facility] [address] [id number] [place] [address]- 7839 Jan, [facility] [address] [id number] [place] [address]- 2552 Jan, [facility] [address] [id number] [place] [address]- 0621 Jan, [facility] [address] [id number] [place] [address]- 9316 Jan, [facility] [address] [id number] [place] [address]- 4791 Jan, [facility] [place] [facility] [address] [id number] [place] [address]- 6858 18 Jan, 2015 [facility] [place] [facility] [address] [id number] [place] [address]- 3231 18 Jan, 2015 [facility] [place] [facility] [address] [id number] [place] [address]- 9885 16 Jan, 2015 [facility] [place] [facility] [address] [id number] [place] [address]- 5709 16 Jan, 2014 [facility] [place] [facility] [address] [id number] [place] [address]- 6396 16 Jan, 2015 [facility] [place] [facility] [address] [id number] [place] [address]- 5248 16 Jan, 2015 [facility] [place] [facility] [address] [id number] [place] [address]- 4002 15 Jan, 2015 [facility] [place] [facility] [address] [id number] [place] [address]- 0791 13 Jan, 2015 [facility] [place] [facility] [address] [id number] [place] [address]- 1355 13 Jan, 2015 [facility] [place] [facility] [address] [id number] [place] [address]- 7439 13 Jan, 2015 [facility] [place] [facility] [address] [id number] [place] [address]- 9276 13 Jan, 2015 [facility] [place] [facility] [address] [id number], [place] [address]- [address] 12 Jan, 2015 [facility] [place] [facility] [address] [id number] [place] [address]- 5662 04 Jan, 2015 [facility] [place] [facility] [address] [id number] [place] [address]- 5250 04 Jan, 2015 [facility] [place] [facility] [address] [id number], [place] [address]- 0288 24 Dec, 2014 [facility] [place] [facility] [address] [id number], [place] [address]- 3812 Dec, 2014 [facility] [place] [facility] [address] [id number] [place] [address]- 3666 Dec, 2014 [facility] [place] [facility] [address] [id number] [place] [address]- 2656 Dec, 2014 [facility] [place] [facility] [address] [facility] [id number] [place] [address]- 5056 Dec, 2014 [facility] [place] [facility] [address] [id number] [place] [address]- 3733 Dec, 2014 [facility] [place] [facility] [address] [id number] [place] [address]- 1266 Dec, 2014 [facility] [place] [facility] [address] [facility] [id number] [place] [address]- 4718 Dec, 2014 [facility] [place] [facility] [address] [place] [id number] [address]- 0376 Dec, 2014 [facility] [place] [facility] [address] [facility] [id number] [place] [address]- 8567 Dec, [facility] [place] [facility] [address] [place] [id number] [place] [address]- 8634 Dec, [facility] [place] [facility] [address] [facility] [id number] [place] [address]- 4119 Dec, [facility] [place] [facility] [address] [facility] [id number] [place] [address]- 7462 Nov, [facility] [place] [facility] [address] [id number] [place] [address]- 4153 Nov, [facility] [place] [facility] [address] [facility] [id number] [place] [address]- 4583 Nov, [facility] [place] [facility] [address] [facility] [id number] [place] [address]- 3496 Nov, [facility] [place] [facility] [address] [facility] [id number] [place] [address]- 3978 Nov, [facility] [place] [facility] [address] [id number] [place] [address]- 6551 Nov, [facility] [place] [facility] [address] [id number] [place] [address]- 6306 Nov, [facility] [place] [facility] [address] [id number] [place] [address]- 0516 Nov, [facility] [place] [facility] [address] [id number] [place] [address]- 2567 Nov, [facility] [place] [facility] [address] [id number] [place] [address]- 8079 Nov, [facility] [place] [facility] [address] [id number] [place] [address]- 1911 Nov, [facility] [place] [facility] [address] [id number] [place] [address]- 6630 Nov, [facility] [place] [facility] [address] [id number] [place] [address]- 8439 Oct, [facility] [place] [facility] [address] [id number] [place] [address]- 6923 Oct, [facility] [place] [facility] [address] [id number] [place] [address]- 0521 Oct, [facility] [place] [facility] [address] [id number] [place] [address]- 6239 Oct, [facility] [place] [facility] [address] [id number], [place] [address]- 2129 Oct, [facility] [place] [facility] [address] [id number] [place] [address]- 2373 Oct, [facility] [place] [facility] [address] [id number] [place] [address]- 0463 Oct, [facility] [place] [facility] [address] [id number] [place] [address]- 0890 Oct, [facility] [place] [facility] [address] [id number] [place] [address]- 3386 17 Oct, 2014 [facility] [place] [facility] [address] [id number] [place] [address]- 8647 17 Oct, 2014 [facility] [place] [facility] [address] [id number] [place] [address]- 8311 16 Oct, 2014 [facility] [place] [facility] [address] [id number] [place] [address]- 7611 16 Oct, 2014 [facility] [place] [facility] [address] [id number] [place] [address]- 3876 15 Oct, 2014 [facility] [place] [facility] [address] [id number] [place] [address]- 4207 15 Oct, 2014 [facility] [place] [facility] [address] [id number] [place] [address]- 0447 Oct, [facility] [place] [facility] [address] [id number] [place] [address]- 5231 Sep, [facility] [place] [facility] [address] [id number] [place] [address]- 8378 Sep, [facility] [place] [facility] [address] [id number] [place] [address]- 7526 Sep, [facility] [place] [facility] [address] [facility] [id number] [place] [address]- 1310 Sep, [facility] [place] [facility] [address] [id number] [place] [address]- 4446 Aug, [facility] [place] [facility] [address] [id number] [place] [address]- 8967 Aug, [facility] [place] [facility] [address] [id number] [place] [address]- 7644 Aug, [facility] [place] [facility] [address] [id number] [place] [address]- 0793 Aug, [facility] [place] [facility] [address] [id number], [place] [address]- 9906 Aug, [facility] [place] [facility] [address] [id number] [place] [address]- 6038 Aug, [facility] [place] [facility] [address] [id number] [place] [address]- 8409 29 Jul, 2014 [facility] [place] [facility] [address] [id number] [place] [address]- 1944 29 Jul, 2014 [facility] [place] [facility] [address] [id number] [place] [address]- 5078 15 Jul, 2014 [facility] [place] [facility] [address] [id number] [place] [address]- 9703 15 Jul, 2014 [facility] [place] [facility] [address] [id number] [place] [address]- 3232 08 Jul, 2014 [facility] [place] [facility] [address] [id number] [place] [address]- 6680 Jul, [facility] [place] [facility] [address] [id number] [place] [address]- 9709 Jun, [facility] [place] [facility] [address] [id number] [place] [address]- 6825 Jun, [facility] [place] [facility] [address] [id number] [place] [address]- 7073 Jun, [facility] [place] [facility] [address] [id number] [place] [address]- 0848 Jun, [facility] [place] [facility] [address] [id number] [place] [address]- 4476 Jun, [facility] [place] [facility] [address] [id number] [place] [address]- 6100 Jun, [facility] [place] [facility] [address] [id number] [place] [address]- 0506 Jun, [facility] [place] [facility] [address] [id number] [place] [address]- 1130 May, [facility] [place] [facility] [address] [id number] [place] [address]- 3596 May, [facility] [place] [facility] [address] [id number] [place] [address]- 1114 May, [facility] [place] [facility] [address] [id number] [place] [address]- 7118 May, [facility] [place] [facility] [address] [id number] [place] [address]- 0078 May, [facility] [place] [facility] [address] [id number] [place] [address]- 9938 May, 2013 [facility] [place] [facility] [address] [id number] [place] [address]- 2932 May, [facility] [place] [facility] [address] [id number] [place] [address]- 4524 May, [facility] [place] [facility] [address] [id number] [place] [address]- 5825 May, [facility] [place] [facility] [address] [id number] [place] [address]- 0881 May, [facility] [place] [facility] [address] [id number] [place] [address]- 1480 May, [facility] [place] [facility] [address] [id number] [place] [address]- 1823 May, [facility] [place] [facility] [address] [id number] [place] [address]- 2446 Apr, [facility] [place] [facility] [address] [id number] [place] [address]- 9934 Apr, [facility] [place] [facility] [address] [id number] [place] [address]- 0376 Apr, [facility] [place] [facility] [address] [id number] [place] [address]- 5773 Apr, [facility] [place] [facility] [address] [id number] [place] [address]- 0834 Apr, [facility] [place] [facility] [address] [id number] [place] [address]- 1235 Apr, [facility] [address] [id number] [place] [address]- 7146 Apr, [facility] [place] [facility] [address] [id number] [place] [address]- 4822 Apr, [facility] [address] [id number] [place] [address]- 4794 Apr, [facility] [place] [facility] [address] [id number] [place] [address]- 0703 Apr, [facility] [place] [facility] [address] [id number] [place] [address]- 2937 March, [facility] [place] [facility] [address] [id number] [place] [address]- 8524 March, [facility] [place] [facility] [address] [id number] [place] [address]- 1052 March, [facility] [address] [id number] [place] [address]- 3816 March, [facility] [place] [facility] [address] [id number] [place] [address]- 7701 March, [facility] [address] [id number] [place] [address]- 7405 March, [facility] [place] [facility] [address] [id number] [place] [address]- 7281 Feb, [facility] [place] [facility] [address] [id number] [place] [address]- 5105 Feb, [facility] [place] [facility] [address] [id number] [place] [address]- 8512 Feb, [facility] [place] [facility] [address] [id number] [place] [address]- 7054 Feb, [facility] [place] [facility] [address] [id number] [place] [address]- 7570 Feb, [facility] [place] [facility] [address] [id number] [place] [address]- 55[address] Feb, [facility] [place] [facility] [address] [id number] [place] [address] Feb, [facility] [place] [facility] [address] [id number] [place] [address] Feb, [facility] [place] [facility] [address] [id number] [place] [address] Feb, [facility] [place] [facility] [address] [id number] [place] [address] Feb, [facility] [place] [facility] [address] [id number] [place] [address] Jan, [facility] [place] [facility] [address] [id number] [place] [address] Jan, [facility] [place] [facility] [address] [id number] [place] [address] Jan, [facility] [place] [facility] [address] [id number] [place] [address] Jan, [facility] [place] [facility] [address] [id number] [place] [address] 37[address] Jan, [facility] [place] [facility] [address] [id number] [place] [address] Jan, [facility] [place] [facility] [address] [id number] [place] [address] Jan, [facility] [place] [facility] [address] [id number] [place] [address] Jan, [facility] [place] [facility] [address] [id number] [place] [address] Dec, [facility] [place] [facility] [address] [id number] [place] [address]- 7007 Dec, [facility] [place] [facility] [address] [id number] [place] [address] Dec, [facility] [place] [facility] [address] [id number] [place] [address] Dec, [facility] [place] [facility] [address] [id number] [place] [address] Dec, [facility] [place] [facility] [address] [id number] [place] [address] Dec, [facility] [place] [facility] [address] [id number] [place] [address] Dec, [facility] [place] [facility] [address] [id number] [place] [address] 1359 Dec, [facility] [place] [facility] [address] [id number] [place] [address] Nov, [facility] [place] [facility] [address] [id number] [place] [address]- [address] Nov, [facility] [place] [facility] [address] [id number] [place] [address] Nov, [facility] [place] [facility] [address] [id number] [place] [address]- [address]365 Nov, [facility] [place] [facility] [address] [id number] [place] [address] 7747 Nov, [facility] [place] [facility] [address] [id number] [place] [address] 7316 Nov, [facility] [place] [facility] [address] [id number] [place] [address]- [address]161 Nov, [facility] [place] [facility] [address] [id number] [place] [address] 1694 Nov, [facility] [place] [facility] [address] [id number] [place] [address] 37[address] Nov, [facility] [place] [facility] [address] [id number] [place] [address]- 0687 Nov, [facility] [address] [id number] [place] [address] Nov, [facility] [place] [facility] [address] [id number] [place] [address] Oct, [facility] [place] [facility] [address] [id number] [place] [address] 117[address] Oct, [facility] [place] [facility] [address] [id number] [place] [address]- 8075 Oct, [facility] [place] [facility] [address] [id number] [place] [address] 6600 Oct, [facility] [place] [facility] [address] [id number] [place] [address]- [address]68 Sep, [facility] [place] [facility] [address] [id number] [place] [address] 139[address] Sep, [facility] [place] [facility] [address] [id number], [place] [address] Sep, [facility] [place] [facility] [address] [id number] [place] [address] Sep, [facility] [place] [facility] [address] [id number], [place] [address] Aug, [facility] [place] [facility] [address] [id number], [place] [address] Aug, [facility] [place] [facility] [address] [id number], [place] [address] Aug, [facility] [place] [facility] [address] [id number], [place] [address] Aug, [facility] [place] [facility] [address] [id number], [place] [address] Aug, [facility] [place] [facility] [address] [id number], [place] [address] Aug, [facility] [place] [facility] [address] [id number], [place] [address] 04 Aug, 2013 [facility] [address] [id number] [place] [address] Aug, [facility] [place] [facility] [address] [id number] [place] [address] 28 Jul, 2012 [facility] [address] [id number] [place] [address]- [address] 27 Jul, 2012 [facility] [place] [facility] [address] [id number] [place] [address]- [address] 26 Jul, 2012 [facility] [address] [id number] [place] [address]- [address] 24 Jul, 2012 [facility] [place] [facility] [address] [address] [id number] [place] [address] 24 Jul, 2012 [facility] [address] [id number] [place] [address] 23 Jul, 2012 [facility] [place] [facility] [address] [id number] [place] [address] 8790 19 Jul, 2012 [facility] [place] [facility] [address] [id number] [place] [address] 4820 18 Jul, 2012 [facility] [place] [facility] [address] [id number] [place] [address] 1835 17 Jul, 2012 [facility] [place] [facility] [address] [id number], [place] [address] 16 Sep, 2012 [facility] [place] [facility] [address] [id number], [place] [address] 13 Jul, 2012 [facility] [place] [facility] [address] [id number] [place] [address] 2549 13 Jul, 2012 [facility] [place] [facility] [address] [id number] [place] [address]- 2545 12 Jul, 2012 [facility] [place] [facility] [address] [id number] [place] [address] 7647 11 Jul, 2012 [facility] [place] [facility] [address] [id number] [place] [address] 2546 Jul, [facility] [address] [id number] [place] [address] 1661 Jun, [facility] [place] [facility] [address] [id number] [place] [address]- 2546 Jun, [facility] [place] [facility] [address] [id number] [place] [address] 6[address] Jun, [facility] [place] [facility] [address] [id number] [place] [address]- 2570 May, [facility] [place] [facility] [address] [id number] [place] [address]- 9504 May, [facility] [place] [facility] [address] [id number] [place] [address] 4346 May, [facility] [place] [facility] [address] [id number] [place] [address]- 5393 May, [facility] [place] [facility] [address] [id number] [place] [address] 3[address] Apr, [facility] [place] [facility] [address] [id number] [place] [address]- 6936 Apr, [facility] [place] [facility] [address] [id number] [place] [address] 8837 Apr, [facility] [place] [facility] [address] [id number] [place] [address]- 3433 Apr, [facility] [place] [facility] [address] [id number] [place] [address]- 7895 March, [facility] [place] [facility] [address] [id number] [place] [address]- 3766 March, [facility] [place] [facility] [address] [id number] [place] [address]- 2546 March, [facility] [place] [facility] [address] [id number] [place] [address]- 4258 Feb, [facility] [place] [facility] [address] [id number] [place] [address] Feb, [facility] [place] [facility] [address] [id number] [place] [address]- 4841 Jan, [facility] [place] [facility] [address] [facility] [id number] [place] [address]- 0799 Jan, [facility] [place] [facility] [address] [id number] [place] [address]- 9503 Jan, [facility] [place] [facility] [address] [id number] [place] [address]- 1207 Jan, [facility] [place] [facility] [address] [id number] [place] [address]- 1585 Jan, [facility] [place] [facility] [id number] [place] [address]- 2591 Dec, [facility] [place] [facility] [address] [facility] [id number] [place] [address]- 6519 Dec, [facility] [place] [facility] [address] [facility] [id number] [place] [address]- 8702 Dec, [facility] [place] [facility] [address] [facility] [id number] [place] [address]- 7174 Dec, [facility] [place] [facility] [address] [id number] [place] [address] Dec, [facility] [place] [facility] [address] [facility] [id number] [place] [address]- 4841 Dec, [facility] [place] [facility] [address] [facility] [id number] [place] [address]- 2047 Dec, [facility] [place] [facility] [address] [facility] [id number] [place] [address]- 1695 Dec, [facility] [place] [facility] [address] [facility] [id number] [place] [address]- 8888 Nov, [facility] [place] [facility] [address] [id number] [place] [address]- 9212 Nov, [facility] [address] [id number] [place] [address]- 2779 Nov, [facility] [place] [facility] [address] [id number] [place] [address]- 8276 Nov, [facility] [address] [id number] [place] [address]- 4193 Nov, [facility] [place] [facility] [address] [id number] [place] [address]- 5619 Nov, [facility] [place] [facility] [address] [id number] [place] [address]- 7042 Nov, [facility] [place] [facility] [address] [id number] [place] [address]- 3618 Oct, [facility] [place] [facility] [address] [id number] [place] [address]- 2588 Oct, [facility] [address] [id number] [place] [address]- 2065 Oct, [facility] [place] [facility] [address] [id number] [place] [address]- 7830 Oct, [facility] [place] [facility] [address] [id number] [place] [address] Oct, [facility] [place] [facility] [address] [id number] [place] [address]- 0685 Oct, [facility] [place] [facility] [address] [id number] [place] [address]- 3844 Oct, [facility] [place] [facility] [address] [id number] [place] [address]- 6226 Oct, [facility] [place] [facility] [address] [id number] [place] [address]- 7783 Sep, [facility] [place] [facility] [address] [id number] [place] [address]- 3969 Sep, [facility] [place] [facility] [address] [id number] [place] [address]- 3538 Sep, [facility] [place] [facility] [address] [id number] [place] [address]- 3041 Sep, [facility] [place] [facility] [address] [id number] [place] [address]- 0426 Sep, [facility] [place] [facility] [address] [id number] [place] [address]- 7895 Sep, [facility] [place] [facility] [address] [id number] [place] [address]- 3248 Sep, [facility] [place] [facility] [address] [id number] [place] [address]- 2624 Sep, [facility] [place] [facility] [address] [id number] [place] [address]- 6789 Sep, [facility] [place] [facility] [address] [id number] [place] [address]- 5301 Sep, [facility] [place] [facility] [address] [id number] [place] [address]- 3931 Sep, [facility] [place] [facility] [address] [id number] [place] [address]- 0211 Sep, [facility] [place] [facility] [address] [id number], [place] [address]- 8873 Sep, [facility] [place] [facility] [address] [id number], [place] [address]- 9005 Sep, [facility] [place] [facility] [address] [id number] [place] [address]- 2635 Sep, [facility] [place] [facility] [address] [id number], [place] [address]- 6967 Sep, [facility] [place] [facility] [address] [id number], [place] [address]- 0441 Sep, [facility] [place] [facility] [address] [id number] [place] [address] 02 Sep, 2012 [facility] [place] [facility] [address] [id number] [place] [address]- 0590 02 Sep, 2012 [facility] [place] [facility] [address] [id number] [place] [address] Sep, [facility] [place] [facility] [address] [id number] [place] [address]- 7482 31 Aug, 2011 [facility] [place] [facility] [address] [id number] [place] [address]- 3075 31 Aug, 2012 [facility] [place] [facility] [address] [id number] [place] [address]- 8334 29 Aug, 2012 [facility] [place] [facility] [address] [id number] [place] [address]- 6692 Aug, [facility] [place] [facility] [address] [id number] [place] [address]- 2890 27 Aug, 2012 [facility] [place] [facility] [address] [id number] [place] [address]- 3715 18 Aug, 2012 [facility] [place] [facility] [address] [id number] [place] [address]- 0324 18 Aug, 2012 [facility] [place] [facility] [address] [facility] [id number] [place] [address]- 9464 17 Aug, 2012 [facility] [place] [facility] [address] [facility] [id number] [place] [address]- 7435 16 Aug, 2012 [facility] [place] [facility] [address] [id number], [place] [address]- 3199 16 Aug, 2012 [facility] [place] [facility] [address] [id number] [place] [address]- 0144 15 Aug, 2012 [facility] [place] [facility] [address] [facility] [id number] [place] [address]- 3766 09 Aug, 2012 [facility] [place] [facility] [address] [facility] [id number], [place] [address]- 1658 05 Aug, 2012 [facility] [place] [facility] [address] [id number] [place] [address]- 7858 Aug, [facility] [place] [facility] [address] [id number] [place] [address]- 0996 Aug, [facility] [place] [facility] [address] [id number] [place] [address]- 6775 14 Jul, 2012 [facility] [place] [facility] [address] [id number] [place] [address]- 7044 Jul, [facility] [place] [facility] [address] [id number] [place] [address]- 0155 Jun, [facility] [place] [facility] [address] [id number] [place] [address]- 8130 Jun, [facility] [place] [facility] [address] [id number] [place] [address]- 3674 May, [facility] [place] [facility] [address] [id number] [place] [address]- 2767 May, [facility] [place] [facility] [address] [id number] [place] [address]- 3767 May, [facility] [place] [facility] [address] [id number] [place] [address]- 8945 May, [facility] [place] [facility] [address] [id number] [place] [address]- 6244 May, [facility] [place] [facility] [address] [id number] [place] [address]- 8417 May, [facility] [place] [facility] [address] [id number] [place] [address]- 7497 Apr, [facility] [place] [facility] [address] [id number] [place] [address]- 3869 Apr, [facility] [place] [facility] [address] [id number] [place] [address]- 2226 March, [facility] [place] [facility] [address] [id number] [place] [address]- 8960 March, [facility] [address] [id number] [place] [address]- 2121 March, [facility] [place] [facility] [address] [id number] [place] [address]- 1804 March, [facility] [place] [facility] [address] [id number] [place] [address]- 5506 March, [facility] [place] [facility] [address] [id number] [place] [address]- 3602 March, [facility] [address] [id number] [place] [address]- 7626 Feb, [facility] [place] [facility] [address] [id number] [place] [address]- 8312 Feb, [facility] [place] [facility] [address] [id number] [place] [address]- 9973 Feb, [facility] [place] [facility] [address] [id number] [place] [address]- 8885 Feb, [facility] [place] [facility] [address] [id number] [place] [address]- 2873 Feb, [facility] [place] [facility] [address] [id number] [place] [address]- 7725 Feb, [facility] [place] [facility] [address] [id number] [place] [address]- 3096 Feb, [facility] [place] [facility] [address] [id number] [place] [address]- 0106 Feb, [facility] [place] [facility] [address] [id number] [place] [address]- 1258 Feb, [facility] [place] [facility] [address] [id number] [place] 30 Jan, 2012 [facility] [place] [facility] [address] [id number] [place] [address]- 4542 Jan, [facility] [place] [facility] [address] [id number] [place] [address]- 8963 26 Jan, 2012 [facility] [address] [id number] [place] [address]- 2446 22 Jan, 2012 [facility] [address] [id number] [place] [address]- 2636 21 Jan, 2012 [facility] [address] [id number] [place] [address]- 0306 20 Jan, 2012 [facility] [address] [id number] [place] [address]- 5519 14 Jan, 2012 [facility] [address] [id number] [place] [address]- 2187 09 Jan, 2012 [facility] [address] [id number] [place] [address]- 0856 09 Jan, 2012 [facility] [address] [id number] [place] [address]- 7966 08 Jan, 2012 [facility] [address] [id number] [place] [address]- 4852 07 Jan, 2012 [facility] [address] [id number] [place] [address]- 8927 06 Jan, 2012 [facility] [address] [id number] [place] [address]- 7212 02 Jan, 2012 [facility] [place] [facility] [address] [id number] [place] [address]- [address] Jan, [facility] [address] [id number] [place] [address]- 5673 Dec, [facility] [place] [facility] [address] [id number] [place] [address]- 6306 27 Dec, 2011 [facility] [address] [id number] [place] [address]- 8186 Dec, [facility] [place] [facility] [address] [id number] [place] [address]- 6759 Dec, [facility] [place] [facility] [address] [id number] [place] [address]- 9675 16 Dec, 2011 [facility] [place] [facility] [address] [id number] [place] [address]- 4296 08 Dec, 2011 [facility] [place] [facility] [address] [id number] [place]16 Dec, [facility] [place] [facility] [address] [id number] [place] [address]- 3805 Dec, [facility] [place] [facility] [address] [id number] [place] [address]- 2311 Dec, [facility] [place] [facility] [address] [id number] [place] [address]- 2184 Nov, [facility] [place] [facility] [address] [id number] [place] [address]- 4905 Nov, [facility] [place] [facility] [address] [id number] [place] [address]- 7906 Nov, [facility] [place] [facility] [address] [id number] [place] [address]- 6520 Nov, [facility] [place] [facility] [address] [id number] [place] [address]- 1183 Oct, [facility] [place] [facility] [address] [id number] [place] [address]- 1946 Oct, [facility] [place] [facility] [address] [id number] [place] [address]- 5831 Oct, [facility] [place] [facility] [address] [id number] [place] [address]- 0854 Oct, [facility] [place] [facility] [address] [id number] [place] [address]- 9254 Oct, [facility] [place] [facility] [address] [id number] [place] [address]- 2166 Oct, [facility] [place] [facility] [address] [id number] [place] [address]- 0186 Oct, [facility] [place] [facility] [address] [id number] [place] [address]- 7007 Sep, [facility] [place] [facility] [address] [id number] [place] [address]- 2181 Sep, [facility] [place] [facility] [address] [id number] [place] [address]- 0195 Sep, [facility] [place] [facility] [address] [id number] [place] [address]- 6695 Sep, [facility] [place] [facility] [address] [id number] [place] [address], [place] [address]- 6924 Sep, [facility] [place] [facility] [address] [id number] [place] [address]- 7968 Sep, [facility] [place] [facility] [address] [id number] [place] [address]- 0105 Sep, [facility] [place] [facility] [address] [id number] [place] [address]- 0398 Sep, [facility] [place] [facility] [address] [id number] [place] [address]- 5275 Sep, [facility] [place] [facility] [address] [id number] [place] [address]- 0161 Aug, [facility] [place] [facility] [address] [id number] [place] [address]- 0051 Aug, [facility] [place] [facility] [address] [id number] [place] [address]- 9195 Aug, [facility] [place] [facility] [address] [id number] [place] [address]- 2942 May, [facility] [place] [facility] [address] [id number] [place] [address]- 0451 Nov, [facility] [place] [facility] [address] [id number] [place] [address]- 5318 Oct, [facility] [address] [id number] [place] [address]- 7036 Oct, [facility] [place] [facility] [address] [id number] [place] [address]- 5446 Oct, [facility] [place] [facility] [address] [id number] [place] [address]- 2807 Oct, [facility] [place] [facility] [address] [id number] [place] [address]- 8596 Oct, [facility] [place] [facility] [address] [id number] [place] [address]- 9642 Sep, [facility] [place] [facility] [address] [id number] [place] [address]- 5749 Sep, [facility] [place] [facility] [address] [id number] [place] [address]- 9679 Jul, [facility] [place] [facility] [address] [id number], [place] [address]- 0221 Oct, [facility] [place] [facility] [address] [id number], [place] [address]- 1635 Oct, [facility] [place] [facility] [address] [facility] [id number], [place] [address]- 9250 Oct, [facility] [place] [facility] [address] [id number], [place] [address]- 0181 Oct, [facility] [place] [facility] [address] [id number], [place] [address]- 1640 Sep, [facility] [place] [facility] [address] [id number], [place] [address]- 4276 Sep, [facility] [place] [facility] [address] [id number], [place] [address]- 4276 Sep, [facility] [place] [facility] [address] [facility] [id number], [place] [address]- 2521 Sep, [facility] [place] [facility] [address] [id number], [place] [address]- 2546 Sep, [facility] [address] [facility] [id number], [place] [address] 2546 Jul, [facility] [address] [facility] [id number], [place] [address] 2546 Apr, [facility] [address] [facility] [id number], [place] [address] 2546 Dec, IMMUNIZATIONS No Known Immunizations SOCIAL HISTORY Never Assessed REASON FOR VISIT Congestion, PT reports she was seen on 06/10 and her symptoms continued/worsened since she has been seen. PT notes loss of appetite, migraine pains, and ear aches as well diarreha. -Alo ABAD , PT reports a rash appeared two days ago, denies any changes to cause this. Notes they are itchy adn only on her forearms. - Alo ABAD PLAN OF CARE Activity Details Follow Up Reg appt Reason: VITAL SIGNS Height 67 in 2018-06-22 Weight 196.7 lbs 2018-06-22 Temperature 98.2 degrees Fahrenheit 2018-06-22 Heart Rate 65 bpm 2018-06-22 Respiratory Rate 20 2018-06-22 Oximetry on room air:94 % 2018-06-22 BMI 30.80 kg/m2 2018-06-22 Blood pressure systolic 118 mmHg 2018-06-22 Blood pressure diastolic 68 mmHg 2018-06-22 MEDICATIONS Medication Instructions Dosage Frequency Start Date End Date Duration Status Metformin HCl 500 MG Orally Twice a day 1 tablet with meals 12h Active Trazodone HCl 100 mg Orally Once a day 1 tablet at bedtime 24h Apr, 30 day(s) Active Test strips Test Strips subcutaneously 2 times a day, accucheck christiano 1 test strip Dec, Active Atorvastatin Calcium 40 MG TAKE ONE TABLET BY MOUTH DAILY 90 Active ProAir HFA 90 mcg/actuation inhale 2 puffs by Inhalation route every 4 hours as needed PRN shortness of breath/cough March, Active Prozac 40 mg Orally Once a day 1 capsule 24h 30 Active Amlodipine Besylate 5 MG Orally Once a day 1 tablet 24h Active Oxygen 2 L/NC by inhalation route at bedtime Active SudoGest 60 mg Orally every 6 hrs 1 tablet as needed 6h May, 07 days Active Protonix 40 MG Orally Once a day 1 tablet 24h Jan, 30 day(s) Active Naprosyn 500 mg Orally 2 times a day 1 tablet with food or milk as needed 12h 30 Active Gabapentin 300 MG TAKE TWO CAPSULES BY MOUTH THREE TIMES A DAY 90 Active Gabapentin 600 MG Orally Once a day 1 capsule before bedtime 24h Active Cyclobenzaprine HCl 10 mg Orally Three times a day 1 tablet as needed 8h 10 Active Levothyroxine Sodium 50 MCG TAKE ONE TABLET BY MOUTH DAILY 90 Active DiphenhydrAMINE HCl 25 MG Orally every 6 hrs, prn itching 1-2 tabs May Active Doxycycline Hyclate 100 mg Orally twice a day 1 tablet 12h May, May, 07 days Active Flonase 50 MCG/ACT Nasally twice a day 1 spray in each nostril 12h Apr, 30 day(s) Active Lisinopril 5 MG Orally Once a day 1 tablet 24h Active Tramadol HCl 50 mg Orally 3 [...]
--- OUTSIDE RECORDS SUMMARY | 2018-11-26 15:49 | XMS REPORT ---
Author Author KING FISHMAN Organization [facility] Address [address] [place] [address] Care Team Providers Care General Counsel Name Role Phone KING FISHMAN Unavailable PROBLEMS Type Condition ICD9-CM Code [id number] Code Onset Dates Condition Status SNOMED Code Problem Lumbago with sciatica, left side M54.42 Active 433755837 Problem Other chronic pain G89.29 Active 74742412 Problem Lumbago with sciatica, right side M54.41 Active [id number] Problem Iron deficiency anemia due to chronic blood loss D50.0 Active 785210500 Problem Seizures R56.9 Active 07899739 Problem Chronic obstructive pulmonary disease, unspecified COPD type J44.9 Active 27288639 Problem Pain in right ankle and joints of right foot M25.571 Active 92281223073147 Problem DM 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 Active 76139759 Problem Cigarette nicotine dependence without complication F17.210 Active 36825620 Problem Mixed hyperlipidemia E78.2 Active 629208341 Problem Essential hypertension I10 Active 62876080 Problem Prediabetes R73.03 Active 579543478 Problem Acquired hypothyroidism E03.9 Active 919235737 Problem Reactive depression F32.9 Active 96222916 Problem Gastroesophageal reflux disease, esophagitis presence not specified K21.9 Active 374571282 ALLERGIES No Information ENCOUNTERS Encounter Location Date Diagnosis [facility] [address] [facility] [id number] [address] Oct, [facility] [id number] [place] [address] 39475- 1414 Jul, Onychomycosis B35.1 ; Onychocryptosis L60.0 and DM 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 [facility] [address] [facility] [id number] [address] Jun, Pain in thoracic spine M54.6 [facility] [id number] [place] [address] 48364- 4030 Jun, Iron deficiency anemia due to chronic blood loss D50.0 and Hematochezia K92.1 [facility] [id number] [place] [address] 18221- 6326 Jun, Gastroenteritis K52.9 and Abnormal RBC indices R71.8 [facility] [address] [address]- [address] Jun, [facility] [address] 7[address]- 0642 Jun, Chest congestion R09.89 and Seizures R56.9 [facility] [address] 29220- 4328 May, Pain in thoracic spine M54.6 [facility] [id number] [place] [address] 96159- 5526 May, [facility] [id number] [place] [address] 33179- 8351 May, [facility] [id number] [place] [address] 67721- 7574 May, [facility] [id number] [place] [address] 70274- 8385 May, Acute non-recurrent frontal sinusitis J01.10 and Dermatitis L30.9 [facility] [id number] [place] [address] 44793 2549 May, [facility] [id number] [place] [address] 57328- 0258 May, Pain in thoracic spine M54.6 [facility] [id number] [place] [address] 74784- 4356 May, [facility] [id number] [place] [address] 82357- 0863 May, Acute nasopharyngitis J00 [facility] [address] [address] 9078 May, [facility] [id number] [place] [address] 19760- 4152 May, [facility] [id number] [place] [address] 79688- 3816 Apr, [facility] [id number] [place] [address] 93523- 6528 Apr, [facility] [id number] [place] [address] 83468- 1108 Apr, [facility] [id number] [place] [address] 10064- 2065 Apr, [facility] [id number] [place] [address] 96003- 6134 Apr, Pain in right ankle and joints of right foot M25.571 [place] [id number] [place] [address] 06104- 9106 Apr, [facility] [id number] [place] [address] 02732- 5441 Apr, Bronchitis J40 ; Pain in right ankle and joints of right foot M25.571 ; Other chronic pain G89.29 ; Prediabetes R73.03 ; Chronic obstructive pulmonary disease, unspecified COPD type J44.9 and Cigarette nicotine dependence without complication F17.210 [facility] [address] [address] 13 Apr, 2018 Seasonal allergic rhinitis, unspecified trigger J30.2 [facility] [id number] [place] [address] 67479- 2165 08 Apr, 2018 Onychomycosis B35.1 ; Onychocryptosis L60.0 and DM 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 [facility] [id number] [place] [address] 70668- 9695 Apr, Reactive depression F32.9 ; Thoracic myofascial strain, initial encounter S29.019A and Leg cramps R25.2 [place] [address] [address]- 1952 March, [place] [address] 49757- 5351 March, Type 2 diabetes mellitus with hyperglycemia E11.65 [place] [address] 72951- 5650 March, Reactive depression F32.[address] 10338- 0556 March, Pain in thoracic spine M54.6 and Other chronic pain G89.29 [place] [address] 19513- 0506 Feb, [place] [address] 39718- 0938 Jan, Reactive depression F32.9 ; Essential hypertension I10 ; Gastroesophageal reflux disease, esophagitis presence not specified K21.9 ; Lumbago with sciatica, left side M54.42 and Lumbago with sciatica, right side M54.41 [place] [address] 42253- 5629 Jan, Reactive depression F32.9 and Pharyngoesophageal dysphagia R13.14 [place] [address] 28015- 8586 Jan, [place] [address] 13939- 2654 Jan, Encounter for immunization Z23 [place] [address] 44082- 0827 Jan, Onychomycosis B35.1 and DM 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 13994- 0372 Jan, [facility] [id number] [place] [address] 57587- 4573 Jan, Prediabetes R73.03 [facility] [id number] [place] [address] 30889- 5880 Dec, [facility] [address] 42139- 5751 Dec, Essential hypertension I10 ; Mixed hyperlipidemia E78.2 ; Acquired hypothyroidism E03.9 ; Reactive depression F32.9 and Prediabetes R73.03 [place] [id number] [place] [address] 64712- 5750 Dec, [facility] [id number] [place] [address] 75489- 9142 Dec, [place] [address] 96460- 5530 Dec, DM 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 [facility] [id number] [place] [address] 02525 -7629 Dec, Bruise T14.8XXA ; Type 2 diabetes mellitus with hyperglycemia E11.65 and MCC current use of insulin Z79.4 [place] [id number] [place] [address] 87902- 1642 Oct, [place] [id number] [place] [address] 40813- 8913 March, Onychomycosis B35.1 and DM 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 [place] [id number] [place] [address] 98796- 2154 Jun, [facility] [id number] [place] [address] 85669- 2213 Jun, [facility] [id number] [place] [address] 17306- 2951 Jun, COPD with acute exacerbation 491.21 [facility] [place] [facility] [address] [id number] [place] [address]- 7083 15 Apr, 2015 [facility] [place] [facility] [address] [id number] [place] [address]- 5576 14 Feb, 2015 [facility] [place] [facility] [address] [id number] [place] [address]- 7065 Feb, [facility] [place] [facility] [address] [id number] [place] [address]- 1117 Jan, [facility] [place] [facility] [address] [id number] [place] [address]- 7931 Jan, [facility] [place] [facility] [address] [id number] [place] [address]- 7520 Jan, [facility] [place] [facility] [address] [id number] [place] [address]- 0500 Jan, [facility] [place] [facility] [address] [id number] [place] [address]- 4662 Jan, [facility] [place] [facility] [address] [id number] [place] [address]- 0108 Jan, [facility] [place] [facility] [address] [id number] [place] [address]- 9285 Jan, [facility] [place] [facility] [address] [id number] [place] [address]- 3654 Jan, [facility] [place] [facility] [address] [id number] [address]- 0415 Jan, [facility] [place] [facility] [address] [id number] [place] [address]- 0863 Jan, [facility] [place] [facility] [address] [id number] [place] [address]- 1238 Jan, [facility] [place] [facility] [address] [id number] [place] [address]- 7231 Jan, [facility] [place] [facility] [address] [id number] [place] [address]- 8328 18 Jan, 2014 [facility] [place] [facility] [address] [id number] [place] [address]- 7329 16 Jan, 2014 [facility] [place] [facility] [address] [id number] [place] [address]- 4372 16 Jan, 2014 [facility] [place] [facility] [address] [id number] [place] [address]- 9363 16 Jan, 2014 [facility] [place] [facility] [address] [id number] [place] [address]- 4769 16 Jan, 2014 [facility] [place] [facility] [address] [id number] [place] [address]- 5503 15 Jan, 2015 [facility] [place] [facility] [address] [id number] [place] [address]- 8311 13 Jan, 2014 [facility] [place] [facility] [address] [id number] [place] [address]- 7793 13 Jan, 2014 [facility] [place] [facility] [address] [id number] [place] [address]- 9186 13 Jan, 2015 [facility] [place] [facility] [address] [id number] [place] [address]- 9000 13 Jan, 2014 [facility] [place] [facility] [address] [id number] [place] [address]- 1870 12 Jan, 2015 [facility] [place] [facility] [address] [id number] [place] [address]- 6883 04 Jan, 2015 [facility] [place] [facility] [address] [id number] [place] [address]- 8110 04 Jan, 2015 [facility] [place] [facility] [address] [id number] [place] [address]- 4098 24 Dec, 2014 [facility] [place] [facility] [address] [id number] [place] [address]- 5233 24 Dec, 2014 [facility] [place] [facility] [address] [id number] [place] [address]- 2412 Dec, [facility] [place] [facility] [address] [id number] [place] [address]- 6889 Dec, [facility] [place] [facility] [address] [id number] [place] [address]- 1986 Dec, [facility] [place] [facility] [address] [id number] [place] [address]- 6086 Dec, [facility] [place] [facility] [address] [id number] [place] [address]- 8106 Dec, [facility] [place] [facility] [address] [id number] [place] [address]- 2207 Dec, [facility] [place] [facility] [address] [id number] [place] [address]- 2455 Dec, [facility] [place] [facility] [address] [id number] [place] [address]- 2508 Dec, [facility] [place] [facility] [address] [id number] [place] [address]- 8459 Dec, [facility] [place] [facility] [address] [id number] [place] [address]- 7537 Dec, [facility] [place] [facility] [address] [id number] [place] [address]- 1397 Nov, [facility] [place] [facility] [address] [id number] [place] [address]- 7998 Nov, [facility] [place] [facility] [address] [id number] [place] [address]- 2143 Nov, [facility] [place] [facility] [address] [id number] [place] [address]- 0631 Nov, [facility] [place] [facility] [address] [id number] [place] [address]- 7365 Nov, [facility] [place] [facility] [address] [id number] [place] [address]- 2475 Nov, [facility] [place] [facility] [address] [id number] [place] [address]- 0389 15 Nov, 2014 [facility] [address] [id number] [place] [address]- 0080 Nov, [facility] [address] [id number] [place] [address]- 1143 Nov, [facility] [address] [id number] [place] [address]- 6287 Nov, [facility] [address] [id number] [place] [address]- 3666 Nov, [facility] [address] [id number] [place] [address]- 8091 Nov, [facility] [address] [id number] [place] [address]- 4352 Oct, [facility] [address] [id number] [place] [address]- 8997 Oct, [facility] [address] [id number] [place] [address]- 7358 Oct, [facility] [address] [id number] [place] [address]- 4163 Oct, [facility] [address] [id number] [place] [address]- 3521 Oct, [facility] [address] [id number] [place] [address]- 5571 29 Oct, 2014 [facility] [address] [id number] [place] [address]- 5799 Oct, [facility] [place] [facility] [address] [id number] [place] [address]- 3751 Oct, [facility] [place] [facility] [address] [id number] [place] [address]- 2796 Oct, [facility] [place] [facility] [address] [id number] [place] 3982 Oct, [facility] [place] [facility] [address] [id number] [place] [address]- 8570 16 Oct, 2014 [facility] [place] [facility] [address] [id number] [place] [address]- 3424 Oct, [facility] [place] [facility] [address] [id number] [place] [address]- 4952 Oct, [facility] [place] [facility] [address] [id number] [place] [address]- 7148 Oct, [facility] [place] [facility] [address] [id number] [place] [address]- 1147 Oct, [facility] [place] [facility] [address] [id number] [place] [address]- 4660 Sep, [facility] [place] [facility] [address] [id number] [place] [address]- 3205 Sep, [facility] [place] [facility] [address] [id number] [place] [address]- 7382 Sep, [facility] [place] [facility] [address] [id number] [place] [address]- 2587 Sep, [facility] [place] [facility] [address] [id number] [address]- 2578 Aug, [facility] [place] [facility] [address] [id number] [place] [address]- 9983 Aug, [facility] [place] [facility] [address] [id number] [address]- 0335 Aug, [facility] [place] [facility] [address] [id number] [address]- 0578 Aug, [facility] [place] [facility] [address] [id number] [place] [address]- 1098 Aug, [facility] [place] [facility] [address] [id number] [place] [address]- 8714 Aug, [facility] [place] [facility] [address] [id number] [place] [address]- 5671 Jul, [facility] [place] [facility] [address] [id number] [place] [address]- 1307 29 Jul, 2014 [facility] [place] [facility] [address] [id number] [place] [address]- 9359 Jul, [facility] [place] [facility] [address] [id number] [place] [address]- 4747 Jul, [facility] [place] [facility] [address] [id number] [place] [address]- 3736 Jul, [facility] [place] [facility] [address] [id number] [place] [address]- 1700 Jul, [facility] [place] [facility] [address] [id number] [place] [address]- 4545 Jun, [facility] [place] [facility] [address] [id number] [place] [address]- 8044 Jun, [facility] [place] [facility] [address] [id number] [place] [address]- 0960 Jun, [facility] [place] [facility] [address] [id number] [place] [address]- 9817 Jun, [facility] [place] [facility] [address] [id number] [place] [address]- 9593 Jun, [facility] [place] [facility] [address] [id number] [place] [address]- 2889 Jun, [facility] [place] [facility] [address] [id number] [place] [address]- 1934 Jun, [facility] [place] [facility] [address] [id number] [place] [address]- 4972 May, [facility] [place] [facility] [address] [id number] [place] [address]- 6528 May, [facility] [place] [facility] [address] [id number] [place] [address]- 7973 May, [facility] [place] [facility] [address] [id number] [place] [address]- 1605 May, 2013 [facility] [place] [facility] [address] [id number] [place] [address]- 2848 May, 2013 [facility] [place] [facility] [address] [id number] [place] [address]- 6256 May, 2013 [facility] [place] [facility] [address] [id number] [place] [address]- 4348 May, 2013 [facility] [place] [facility] [address] [id number] [place] [address]- 5359 May, 2013 [facility] [place] [facility] [address] [id number] [place] [address]- 7332 May, [facility] [place] [facility] [address] [id number] [place] [address]- 4210 May, [facility] [place] [facility] [address] [id number] [place] [address]- 0967 May, [facility] [place] [facility] [address] [id number] [place] [address]- 0360 May, [facility] [place] [facility] [address] [id number] [place] [address]- 0910 Apr, [facility] [place] [facility] [address] [id number] [place] [address]- 7367 Apr, [facility] [place] [facility] [address] [id number] [place] [address]- 6574 Apr, [facility] [place] [facility] [address] [id number] [place] [address]- 5584 Apr, [facility] [place] [facility] [address] [id number] [place] [address]- 1337 Apr, [facility] [place] [facility] [address] [id number] [place] [address]- 9056 Apr, [facility] [place] [facility] [address] [id number] [place] [address]- 4498 Apr, [facility] [place] [facility] [address] [id number] [place] [address]- 7141 Apr, [facility] [place] [facility] [address] [id number] [place] [address]- 1091 Apr, [facility] [place] [facility] [address] [id number] [place] [address]- 5505 Apr, [facility] [place] [facility] [address] [id number] [place] [address]- 7381 March, [facility] [place] [facility] [address] [id number] [place] [address]- 1608 March, [facility] [place] [facility] [address] [id number] [place] [address]- 5349 March, [facility] [place] [facility] [address] [id number] [place] [address]- 1905 March, [facility] [place] [facility] [address] [id number] [place] [address]- 1775 March, [facility] [place] [facility] [address] [id number] [place] [address]- 0794 March, [facility] [place] [facility] [address] [id number] [place] [address]- 1621 Feb, [facility] [place] [facility] [address] [id number] [place] [address]- 7633 Feb, [facility] [place] [facility] [address] [id number] [place] [address]- 5527 Feb, [facility] [place] [facility] [address] [id number] [place] [address]- 4837 Feb, [facility] [place] [facility] [address] [id number] [place] [address]- 9646 Feb, [facility] [place] [facility] [address] [id number] [place] [address]- 8544 Feb, [facility] [place] [facility] [address] [id number] [place] [address]- 3717 Feb, [facility] [place] [facility] [address] [id number] [place] [address] Feb, [facility] [place] [facility] [address] [id number] [place] [address] Feb, [facility] [place] [facility] [address] [id number] [place] [address] Feb, [facility] [place] [facility] [address] [id number] [place] [address] Jan, [facility] [place] [facility] [address] [id number] [place] [address] Jan, [facility] [place] [facility] [address] [id number] [place] [address] Jan, [facility] [place] [facility] [address] [id number] [place] [address] Jan, [facility] [place] [facility] [address] [id number] [place] [address] Jan, [facility] [place] [facility] [address] [id number] [place] [address] Jan, [facility] [place] [facility] [address] [facility] [id number] [place] [address] 8944 Jan, [facility] [place] [facility] [address] [id number] [place] [address] Jan, [facility] [place] [facility] [address] [id number] [place] [address] Dec, [facility] [place] [facility] [address] [id number] [place] [address] Dec, [facility] [place] [facility] [address] [id number] [place] [address] Dec, [facility] [place] [facility] [address] [id number] [place] [address] Dec, [facility] [place] [facility] [address] [id number] [place] [address] Dec, [facility] [place] [facility] [address] [id number] [place] [address]- [address] Dec, [facility] [place] [facility] [address] [id number] [place] [address] Dec, [facility] [place] [facility] [address] [id number] [place] [address] Dec, [facility] [place] [facility] [address] [id number] [place] [address] Nov, [facility] [place] [facility] [address] [id number] [place] [address] Nov, [facility] [place] [facility] [address] [id number] [place] [address] Nov, [facility] [place] [facility] [address] [id number] [place] [address] Nov, [facility] [place] [facility] [address] [id number] [place] [address]- [address] Nov, [facility] [place] [facility] [address] [id number] [place] [address] 8095 Nov, [facility] [place] [facility] [address] [id number] [address] Nov, [facility] [place] [facility] [address] [id number] [address] Nov, [facility] [place] [facility] [address] [id number] [place] [address] Nov, [facility] [place] [facility] [address] [id number] [place] [address] 8[address] Nov, [facility] [place] [facility] [address] [id number] [place] [address] 99[address] Nov, [facility] [place] [facility] [address] [id number] [place] [address] Oct, [facility] [address] [id number] [place] [address] Oct, [facility] [place] [facility] [address] [id number] [place] [address] Oct, [facility] [place] [facility] [address] [id number] [place] [address] Oct, [facility] [place] [facility] [address] [id number] [place] [address]697 Sep, [facility] [place] [facility] [address] [id number] [place] [address] Sep, [facility] [place] [facility] [address] [id number] [place] [address] Sep, [facility] [place] [facility] [address] [id number] [place] [address]- 8[address] Sep, [facility] [place] [facility] [address] [id number] [place] [address]702 Aug, [facility] [place] [facility] [address] [id number] [place] [address] Aug, [facility] [place] [facility] [address] [facility] [id number] [place] [address] Aug, [facility] [place] [facility] [address] [id number] [place] [address] 114[address] Aug, [facility] [place] [facility] [address] [id number] [place] [address] Aug, [facility] [place] [facility] [address] [id number] [place] [address] Aug, [facility] [place] [facility] [address] [facility] [id number] [place] [address]- [address] Aug, [facility] [place] [facility] [address] [id number] [address] Aug, [facility] [place] [facility] [address] [id number] [place] [address] 28 Jul, 2012 [facility] [place] [facility] [address] [id number] [place] [address]45 27 Sep, 2012 [facility] [place] [facility] [address] [id number] [place] [address]- [address] 26 Jul, 2012 [facility] [place] [facility] [address] [id number] [place] [address] 254 24 Jul, 2012 [facility] [address] [id number] [place] [address]- [address]40 24 Jul, 2012 [facility] [place] [facility] [address] [id number] [place] [address]- [address] 23 Jul, 2012 [facility] [address] [id number] [place] [address]- 8860 19 Jul, 2012 [facility] [address] [id number] [place] [address]- [address] 18 Jul, 2012 [facility] [address] [id number] [place] [address]- [address]78 17 Jul, 2012 [facility] [place] [facility] [address] [id number] [place] [address]- [address]84 16 Jul, 2012 [facility] [facility] [address] [id number] [place] [address] 13 Jul, 2012 [facility] [place] [facility] [address] [id number] [place] [address]44 13 Jul, 2012 [facility] [place] [facility] [address] [id number] [place] [address]- 2540 12 Jul, 2012 [facility] [place] [facility] [address] [id number] [place] [address]- 2549 11 Jul, 2012 [facility] [place] [facility] [address] [id number] [place] [address]- 2549 04 Sep, 2012 [facility] [place] [facility] [address] [id number] [place] [address] 2546 Jun, [facility] [place] [facility] [address] [id number] [place] [address] 6089 Jun, [facility] [place] [facility] [address] [id number] [place] [address] 2502 Jun, [facility] [place] [facility] [address] [id number] [place] [address] 9734 May, [facility] [place] [facility] [address] [id number] [place] [address]- 8496 May, [facility] [place] [facility] [address] [id number] [place] [address] 7067 May, [facility] [place] [facility] [address] [id number] [place] [address]- 1482 May, [facility] [place] [facility] [address] [id number] [place] [address]- 6361 Apr, [facility] [place] [facility] [address] [id number] [place] [address]- 2290 Apr, [facility] [place] [facility] [address] [id number] [place] [address]- 4609 Apr, [facility] [place] [facility] [address] [id number] [place] [address]- 5283 Apr, [facility] [place] [address] [id number] [place] [address]- 7242 March, [facility] [place] [facility] [address] [id number] [place] [address]- 0636 March, [facility] [place] [facility] [address] [id number] [place] [address]- 4305 March, [facility] [place] [facility] [address] [id number] [place] [address]- 4318 Feb, [facility] [place] [address] [id number] [place] [address] 1907 Feb, [facility] [facility] [address] [id number] [place] [address]- 0928 Jan, [facility] [address] [id number] [place] [address]- 7685 Jan, [facility] [address] [id number] [place] [address]- 0112 Jan, [facility] [address] [id number] [place] [address]- 4543 Jan, [facility] [address] [id number] [place] [address]- 4320 Jan, [facility] [address] [id number] [place] [address]- 3119 Dec, [facility] [address] [id number] [place] [address]- 7136 Dec, [facility] [address] [id number] [place] [address]- 9009 Dec, [facility] [address] [id number] [place] [address]- 3070 Dec, [facility] [address] [id number] [place] [address]- 0535 Dec, [facility] [address] [facility] [id number] [place] [address]- 0409 Dec, [facility] [address] [id number] [place] [address]- 4943 Dec, [facility] [address] [id number] [place] [address]- 5778 Dec, [facility] [address] [id number] [place] [address]- 0826 Nov, [facility] [address] [id number] [place] [address]- 2903 Nov, [facility] [address] [id number] [place] [address]- 2546 Nov, [facility] [address] [id number] [place] [address]- 3637 Nov, [facility] [address] [id number] [place] [address]- 8996 Nov, [facility] [address] [id number] [place] [address]- 0205 Nov, [facility] [address] [id number] [place] [address]- 0814 Nov, [facility] [address] [id number] [place] [address]- 7064 Oct, [facility] [address] [id number] [place] [address]- 5899 Oct, [facility] [address] [id number] [place] [address]- 9347 Oct, [facility] [address] [id number] [place] [address]- 2853 Oct, [facility] [address] [id number] [place] [address]- 0034 Oct, [facility] [address] [id number] [place] [address]- 2449 Oct, [facility] [address] [id number] [place] [address]- 7349 Oct, [facility] [address] [id number] [place] [address]- 9358 Oct, [facility] [address] [id number] [place] [address]- 6964 Sep, [facility] [address] [id number] [place] [address]- 6169 Sep, [facility] [address] [id number] [place] [address]- 2958 Sep, [facility] [address] [id number] [place] [address]- 7297 Sep, [facility] [address] [id number] [place] [address]- 5384 Sep, [facility] [address] [id number] [place] [address]- 7863 Sep, [facility] [address] [id number] [place] [address]- 4739 Sep, [facility] [address] [id number] [place] [address]- 6108 Sep, [facility] [address] [id number] [place] [address]- 3670 Sep, [facility] [address] [id number] [place] [address]- 9451 Sep, [facility] [address] [id number] [place] [address]- 9909 Sep, [facility] [address] [id number] [place] [address]- 3914 Sep, [facility] [address] [id number] [place] [address]- 6823 Sep, [facility] [address] [id number] [place] [address]- 6880 Sep, [facility] [address] [id number] [place] [address]- 6786 Sep, [facility] [address] [id number] [place] [address]- 1451 Sep, [facility] [address] [id number] [place] [address]- 6300 Sep, [facility] [address] [id number] [place] [address]- 3178 Sep, [facility] [address] [id number] [place] [address]- 3932 Sep, [facility] [address] [id number] [place] [address]- 1254 Sep, [facility] [address] [id number] [place] [address]- 7129 Aug, [facility] [address] [id number] [place] [address]- 6109 Aug, [facility] [address] [id number] [place] [address]- 0172 Aug, [facility] [address] [id number] [place] [address]- 8318 Aug, [facility] [address] [id number] [place] [address]- 3395 Aug, [facility] [address] [id number] [place] [address]- 0263 Aug, [facility] [address] [id number] [address]- 2610 Aug, [facility] [address] [id number] [address]- 4476 Aug, [facility] [address] [facility] [id number] [place] [address]- 6367 Aug, [facility] [address] [facility] [id number] [address]- 5087 16 Aug, 2012 [facility] [address] [id number] [address]- 9854 15 Aug, 2012 [facility] [address] [id number] [address]- 6790 Aug, [facility] [address] [id number] [place] [address]- 4809 Aug, [facility] [address] [facility] [id number] [place] [address]- 8734 Aug, [facility] [address] [id number] [address]- 6262 04 Aug, 2012 [facility] [address] [id number] [place] [address]- 8060 14 Jul, 2012 [facility] [address] [id number] [place] [address]- 6136 10 Jul, 2012 [facility] [address] [id number] [place] [address]- 3436 31 Jun, 2012 [facility] [address] [id number] [place] [address]- 2763 Jun, [facility] [address] [id number] [place] [address]- 2163 31 May, 2012 [facility] [address] [id number] [place] [address]- 3613 May, [facility] [address] [id number] [place] [address]- 5713 May, [facility] [address] [id number] [place] [address]- 8269 May, [facility] [address] [id number] [place] [address]- 6956 May, [facility] [address] [id number] [place] [address]- 2249 May, [facility] [address] [id number] [place] [address]- 2313 Apr, [facility] [address] [id number] [place] [address]- 7654 Apr, [facility] [address] [id number] [place] [address]- 6096 March, [facility] [address] [id number] [place] [address]- 1173 March, [facility] [address] [id number] [place] [address]- 5263 March, [facility] [address] [id number] [place] [address]- 7672 15 Mar, 2012 [facility] [address] [id number] [place] [address]- 9040 March, [facility] [address] [id number] [place] [address]- 2326 March, [facility] [address] [id number] [place] [address]- 3398 Feb, [facility] [address] [id number] [place] [address]- 7507 Feb, [facility] [address] [id number] [place] [address]- 8038 Feb, [facility] [address] [id number] [place] [address]- 4191 Feb, [facility] [address] [id number] [place] [address]- 8660 Feb, [facility] [address] [id number] [place] [address]- 0618 Feb, [facility] [address] [id number] [place] [address]- 1924 Feb, [facility] [address] [id number] [place] [address]- 2746 Feb, [facility] [address] [id number] [place] [address]- 6785 Feb, [facility] [address] [id number] [place] [address]- 9444 Jan, [facility] [address] [id number] [place] [address]- 2952 Jan, [facility] [address] [id number] [place] [address]- 3571 Jan, [facility] [address] [id number] [place] [address]- 6615 22 Jan, 2012 [facility] [address] [id number] [place] [address]- 5905 21 Jan, 2012 [facility] [address] [id number] [place] [address]- 2099 20 Jan, 2012 [facility] [address] [id number] [place] [address]- 7291 14 Jan, 2012 [facility] [address] [id number] [place] [address]- 5425 09 Jan, 2012 [facility] [address] [id number] [place] [address]- 9554 09 Jan, 2012 [facility] [address] [id number] [place] [address]- 1240 08 Jan, 2012 [facility] [address] [id number] [place] [address]- 5721 07 Jan, 2012 [facility] [address] [id number] [place] [address]- 4442 06 Jan, 2012 [facility] [address] [id number] [place] [address]- 5752 02 Jan, 2012 [facility] [address] [id number] [place] [address]- 5473 02 Jan, 2012 [facility] [address] [id number] [place] [address]- 2803 28 Dec, 2011 [facility] [address] [id number] [place] [address]- 3372 27 Dec, 2011 [facility] [address] [id number] [place] [address]- 6570 25 Dec, 2011 [facility] [address] [id number] [place] [address]- 6475 23 Dec, 2011 [facility] [address] [id number] [place] [address]- 4633 16 Dec, 2011 [facility] [address] [id number] [place] [address]- 5756 08 Dec, 2011 [facility] [address] [id number] [place] [address]- 1146 08 Dec, 2011 [facility] [address] [id number] [place] [address] 2546 Dec, [facility] [address] [id number] [place] [address] 2546 Dec, [facility] [address] [id number] [place] [address] 2543 Nov, [facility] [address] [id number] [place] [address]- 7356 Nov, [facility] [address] [id number] [place] [address]- 0077 Nov, [facility] [address] [id number] [place] [address]- 3265 Nov, [facility] [address] [id number] [place] [address]- 3679 Oct, [facility] [address] [id number] [place] [address]- 2549 Oct, [facility] [address] [id number] [place] [address]- 0856 Oct, [facility] [address] [id number] [place] [address] 2546 Oct, [facility] [address] [id number] [place] [address] 2546 Oct, [facility] [address] [id number] [place] [address] 2546 Oct, [facility] [address] [id number] [place] [address] 2546 05 Oct, 2011 [facility] [address] [id number] [place] [address]- 4961 Sep, [facility] [place] [facility] [address] [id number] [place] [address]- 6327 Sep, [facility] [place] [facility] [address] [id number] [place] [address]- 6666 Sep, [facility] [place] [facility] [address] [id number] [place] Sep, [facility] [place] [facility] [address] [id number] [place] [address]- 2885 Sep, [facility] [place] [facility] [address] [id number] [place] [address]- 1210 Sep, [facility] [place] [facility] [address] [id number] [place] [address]- 5454 Sep, [facility] [place] [facility] [address] [id number] [place] [address]- 5555 Sep, [facility] [place] [facility] [address] [id number] [address]- 9019 Sep, [facility] [place] [facility] [address] [id number] [place] [address]- 5230 Aug, [facility] [place] [facility] [address] [id number] [place] [address]- 6363 Aug, [facility] [place] [facility] [address] [id number] [address]- 3375 Aug, [facility] [place] [facility] [address] [id number] [address]- 2987 May, [facility] [place] [facility] [address] [id number] [place] [address]- 1447 Nov, [facility] [place] [facility] [address] [id number] [address]- 1999 Oct, [facility] [place] [facility] [address] [id number] [place]11 Oct, [facility] [place] [facility] [address] [id number] [place] [address]- 7417 30 Oct, 2010 [facility] [address] [id number] [place] [address]- 7426 02 Oct, 2010 [facility] [place] [facility] [address] [id number] [place] [address] 2546 Oct, [facility] [address] [id number] [place] [address]- 0106 03 Sep, 2010 [facility] [address] [id number] [place] [address] 2546 Sep, [facility] [address] [id number] [place] [address]- 5506 14 Jul, 2010 [facility] [address] [id number] [place] [address]- 7813 31 Oct, 2009 [facility] [address] [id number] [place] [address]- 4645 Oct, [facility] [address] [id number] [place] [address]- 5091 Oct, [facility] [address] [id number] [place] [address]- 2845 Oct, [facility] [address] [facility] [id number] [place] [address]- 7396 30 Sep, 2009 [facility] [address] [id number] [place] [address] 2546 Sep, [facility] [place] [facility] [address] [id number] [place] [address] 2548 Sep, [facility] [place] [facility] [address] [id number] [place] [address] 2549 04 Sep, 2009 [facility] [place] [facility] [address] [facility] [id number] [place] [address] 2546 03 Sep, 2009 [facility] [place] [facility] [address] [id number] [address]- 8920 Jul, [facility] [address] [facility] [id number] [place] [address]36 Apr, [facility] [address] [facility] [id number] [place] [address]487 Dec, IMMUNIZATIONS No Known Immunizations SOCIAL HISTORY Never Assessed REASON FOR VISIT Medication question PLAN OF CARE VITAL SIGNS MEDICATIONS Medication Instructions Dosage Frequency Start Date End Date Duration Status Chantix 1 MG Orally Twice a day 1/2 tablet once daily for 3 days then 1/2 tab 2 times daily x 3 days then one tab 12h May, Active RESULTS No Results PROCEDURES No Known procedures INSTRUCTIONS MEDICATIONS ADMINISTERED No Known Medications MEDICAL (GENERAL) HISTORY Type Description Date Medical History hypertension Medical History hyperlipidemia Medical History diabetes type II Medical History COPD Medical History asthma Surgical History hysterectomy Surgical History arthritis surgery Hospitalization History surgeries
--- OUTSIDE RECORDS SUMMARY | 2018-11-26 15:50 | XMS REPORT ---
Author Author KING FISHMAN Organization [facility] Address [address] [place] [address] Care Team Providers Care Heel Shaper Name Role Phone KING FISHMAN Unavailable PROBLEMS Type Condition ICD9-CM Code WXL08-DW Code Onset Dates Condition Status SNOMED Code Problem Lumbago with sciatica, left side M54.42 Active 869932297 Problem Other chronic pain G89.29 Active 02659681 Problem Lumbago with sciatica, right side M54.41 Active [id number] Problem Iron deficiency anemia due to chronic blood loss D50.0 Active 966958287 Problem Seizures R56.9 Active 77488407 Problem Chronic obstructive pulmonary disease, unspecified COPD type J44.9 Active 18603422 Problem Pain in right ankle and joints of right foot M25.571 Active 86008438010035 Problem DM 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 Active 00266034 Problem Cigarette nicotine dependence without complication F17.210 Active 88275392 Problem Mixed hyperlipidemia E78.2 Active 348936776 Problem Essential hypertension I10 Active 94840991 Problem Prediabetes R73.03 Active 934262991 Problem Acquired hypothyroidism E03.9 Active 377183593 Problem Reactive depression F32.9 Active 88102076 Problem Gastroesophageal reflux disease, esophagitis presence not specified K21.9 Active [id number] ALLERGIES No Information ENCOUNTERS Encounter Location Date Diagnosis [facility] [address] [facility] [id number] [address] Oct, [facility] [id number] [place] [address]102- 8676 Jul, Onychomycosis B35.1 ; Onychocryptosis L60.0 and DM 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 [facility] [address] [facility] [id number], [place] [address] Jun, Pain in thoracic spine M54.6 [facility] [id number] [place] [address] 05254- 3736 Jun, Iron deficiency anemia due to chronic blood loss D50.0 and Hematochezia K92.1 [facility] [id number] [place] [address] 20669- 3566 Jun, Gastroenteritis K52.9 and Abnormal RBC indices R71.8 [facility] [address] [address]- [address] Jun, [facility] [address] [address]- 7191 Jun, Chest congestion R09.89 and Seizures R56.9 [facility] [address] [address]- 3929 May, Pain in thoracic spine M54.6 [facility] [id number] [place] [address] 70931- 1246 May, [facility] [id number] [place] [address] 85791- 9485 May, [facility] [id number] [place] [address] 12966- 6166 May, [facility] [id number] [place] [address] 44933- 7233 May, Acute non-recurrent frontal sinusitis J01.10 and Dermatitis L30.9 [facility] [id number] [place] [address] 28126 2545 May, [facility] [id number] [place] [address] 23222- 8740 May, Pain in thoracic spine M54.6 [facility] [id number] [place] [address] 53099- 4656 May, [facility] [id number] [place] [address] 11745- 6205 May, Acute nasopharyngitis J00 [facility] [address] [address] 4[address] May, [facility] [id number] [place] [address] 69545- 7177 May, [facility] [id number] [place] [address] 69723- 3878 Apr, [facility] [id number] [place] [address] 79430- 5829 Apr, [facility] [id number] [place] [address] 97431- 9625 Apr, [facility] [id number] [place] [address] 72373- 8092 Apr, [facility] [id number] [place] [address] 91554- 2132 Apr, Pain in right ankle and joints of right foot M25.571 [facility] [id number] [place] [address] 49951- 9246 Apr, [facility] [id number] [place] [address] 98375- 2420 Apr, Bronchitis J40 ; Pain in right ankle and joints of right foot M25.571 ; Other chronic pain G89.29 ; Prediabetes R73.03 ; Chronic obstructive pulmonary disease, unspecified COPD type J44.9 and Cigarette nicotine dependence without complication F17.210 [facility] [address] [address] 13 Apr, 2018 Seasonal allergic rhinitis, unspecified trigger J30.2 [facility] [id number] [place] [address] 57822- 8472 08 Apr, 2018 Onychomycosis B35.1 ; Onychocryptosis L60.0 and DM 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 [facility] [id number] [place] [address] 41699- 2434 Apr, Reactive depression F32.9 ; Thoracic myofascial strain, initial encounter S29.019A and Leg cramps R25.2 [place] [address] 65788- 5690 March, [facility] [address] 83600- 3884 March, Type 2 diabetes mellitus with hyperglycemia E11.65 [place] [address] 63886- 3339 March, Reactive depression F32.[address] 7[address]20- 8555 March, Pain in thoracic spine M54.6 and Other chronic pain G89.29 [place] [facility] [address] 41240- 3914 Feb, [facility] [address] 37825- 1666 Jan, Reactive depression F32.9 ; Essential hypertension I10 ; Gastroesophageal reflux disease, esophagitis presence not specified K21.9 ; Lumbago with sciatica, left side M54.42 and Lumbago with sciatica, right side M54.41 [facility] [address] 71461- 6553 Jan, Reactive depression F32.9 and Pharyngoesophageal dysphagia R13.14 [facility] [facility] [address] 72277- 4352 Jan, [place] [address] 79408- 9219 Jan, Encounter for immunization Z23 [facility] [address] 80936- 5427 Jan, Onychomycosis B35.1 and DM 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 96841- 5023 Jan, [facility] [id number] [place] [address] 27529- 8107 Jan, Prediabetes R73.03 [facility] [id number] [place] [address] 78694- 5727 Dec, [facility] [address] 49111- 2609 Dec, Essential hypertension I10 ; Mixed hyperlipidemia E78.2 ; Acquired hypothyroidism E03.9 ; Reactive depression F32.9 and Prediabetes R73.03 [facility] [id number] [place] [address] 42363- 0239 Dec, [facility] [id number] [place] [address] 86979- 4508 Dec, [place] [address] 28686- 4943 Dec, DM 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 [facility] [id number] [place] [address] 00565 -3652 Dec, Bruise T14.8XXA ; Type 2 diabetes mellitus with hyperglycemia E11.65 and correction current use of insulin Z79.4 [facility] [id number] [place] [address] 90290- 2811 Oct, [facility] [facility] [id number] [place] [address] 84437- 1297 March, Onychomycosis B35.1 and DM 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 [facility] [id number] [place] [address] 08654- 9493 Jun, [facility] [id number] [place] [address] 33062- 8616 Jun, [facility] [id number] [place] [address] 03861- 7666 Jun, COPD with acute exacerbation 491.21 [facility] [place] [facility] [address] [id number] [place] [address]- 6464 15 Apr, 2015 [facility] [place] [facility] [address] [id number] [place] [address]- 2155 14 Feb, 2015 [facility] [place] [facility] [address] [id number] [place] [address]- 4399 Feb, [facility] [place] [facility] [address] [id number] [place] [address]- 7532 Jan, [facility] [place] [facility] [address] [id number] [place] [address]- 1621 Jan, [facility] [place] [facility] [address] [id number] [place] [address]- 6838 Jan, [facility] [place] [facility] [address] [id number] [place] [address]- 8107 Jan, [facility] [place] [facility] [address] [id number] [place] [address]- 6355 Jan, [facility] [place] [facility] [address] [id number] [place] [address]- 0029 Jan, [facility] [place] [facility] [address] [id number] [place] [address]- 1222 Jan, [facility] [place] [facility] [address] [id number] [place] [address]- 3688 Jan, [facility] [place] [facility] [address] [id number], [place] [address]- 7200 Jan, [facility] [place] [facility] [address] [id number] [place] [address]- 0183 Jan, [facility] [place] [facility] [address] [id number] [place] [address]- 2402 Jan, [facility] [place] [facility] [address] [id number] [place] [address]- 9860 Jan, [facility] [place] [facility] [address] [id number] [place] [address]- 0014 18 Jan, 2014 [facility] [place] [facility] [address] [id number] [place] [address]- 1612 16 Jan, 2014 [facility] [place] [facility] [address] [id number] [place] [address]- 5160 16 Jan, 2014 [facility] [place] [facility] [address] [id number] [place] [address]- 9141 16 Jan, 2014 [facility] [place] [facility] [address] [id number] [place] [address]- 0667 16 Jan, 2014 [facility] [place] [facility] [address] [id number] [place] [address]- 5566 15 Jan, 2015 [facility] [place] [facility] [address] [id number] [place] [address]- 2682 13 Jan, 2014 [facility] [place] [facility] [address] [id number] [place] [address]- 7783 13 Jan, 2014 [facility] [place] [facility] [address] [id number] [place] [address]- 9435 13 Jan, 2015 [facility] [place] [facility] [address] [id number] [place] [address]- 5814 13 Jan, 2014 [facility] [place] [facility] [address] [id number] [place] [address]- 9772 12 Jan, 2015 [facility] [place] [facility] [address] [id number] [place] [address]- 3222 04 Jan, 2015 [facility] [place] [facility] [address] [id number] [place] [address]- 4248 04 Jan, 2015 [facility] [place] [facility] [address] [id number] [place] [address]- 5412 24 Dec, 2014 [facility] [place] [facility] [address] [id number] [place] [address]- 4166 24 Dec, 2014 [facility] [place] [facility] [address] [id number] [place] [address]- 6934 Dec, [facility] [place] [facility] [address] [id number] [place] [address]- 0832 Dec, [facility] [place] [facility] [address] [id number] [place] [address]- 3636 Dec, [facility] [place] [facility] [address] [id number] [place] [address]- 4557 Dec, [facility] [place] [facility] [address] [id number] [place] [address]- 2611 Dec, [facility] [place] [facility] [address] [id number] [place] [address]- 0074 Dec, [facility] [place] [facility] [address] [id number] [place] [address]- 9268 Dec, [facility] [place] [facility] [address] [id number] [place] [address]- 5437 Dec, [facility] [place] [facility] [address] [id number] [place] [address]- 9807 Dec, [facility] [place] [facility] [address] [id number] [place] [address]- 4494 Dec, [facility] [place] [facility] [address] [id number] [place] [address]- 5582 Nov, [facility] [place] [facility] [address] [id number] [place] [address]- 0441 Nov, [facility] [place] [facility] [address] [id number] [place] [address]- 4639 Nov, [facility] [place] [facility] [address] [id number] [place] [address]- 7216 Nov, [facility] [place] [facility] [address] [id number] [place] [address]- 2477 Nov, [facility] [place] [facility] [address] [id number] [place] [address]- 1803 Nov, [facility] [place] [facility] [address] [id number] [place] [address]- 8993 15 Nov, 2014 [facility] [address] [id number] [place] [address]- 3184 Nov, [facility] [address] [id number] [place] [address]- 8000 Nov, [facility] [address] [id number] [place] [address]- 0833 Nov, [facility] [address] [id number] [place] [address]- 2860 Nov, [facility] [address] [id number] [place] [address]- 7754 Nov, [facility] [address] [id number] [place] [address]- 8013 Oct, [facility] [address] [id number] [place] [address]- 2913 Oct, [facility] [address] [id number] [place] [address]- 0166 Oct, [facility] [address] [id number] [place] [address]- 6006 Oct, [facility] [address] [id number] [place] [address]- 5734 Oct, [facility] [address] [id number] [place] [address]- 8094 29 Oct, 2014 [facility] [address] [id number] [place] [address]- 1057 Oct, [facility] [place] [facility] [address] [id number] [place] [address]- 5641 Oct, [facility] [place] [facility] [address] [id number] [place] [address]- 6676 Oct, [facility] [place] [facility] [address] [id number] [place] 7919 Oct, [facility] [place] [facility] [address] [id number] [place] [address]- 7466 16 Oct, 2014 [facility] [place] [facility] [address] [id number] [place] [address]- 9219 Oct, [facility] [place] [facility] [address] [id number] [place] [address]- 9264 Oct, [facility] [place] [facility] [address] [id number] [place] [address]- 7575 Oct, [facility] [place] [facility] [address] [id number] [place] [address]- 1548 Oct, [facility] [place] [facility] [address] [id number] [place] [address]- 1954 Sep, [facility] [place] [facility] [address] [id number] [place] [address]- 0038 Sep, [facility] [place] [facility] [address] [id number] [place] [address]- 6383 Sep, [facility] [place] [facility] [address] [id number] [place] [address]- 9612 Sep, [facility] [place] [facility] [address] [id number], [place] [address]- 5678 Aug, [facility] [place] [facility] [address] [id number], [place] [address]- 7633 Aug, [facility] [place] [facility] [address] [id number], [place] [address]- 1323 Aug, [facility] [place] [facility] [address] [id number], [place] [address]- 2616 Aug, [facility] [place] [facility] [address] [id number], [place] [address]- 0011 Aug, [facility] [place] [facility] [address] [id number], [place] [address]- 1915 Aug, [facility] [place] [facility] [address] [id number], [place] [address]- 8381 Jul, [facility] [place] [facility] [address] [id number] [place] [address]- 1081 29 Jul, 2014 [facility] [place] [facility] [address] [id number] [place] [address]- 1854 Jul, [facility] [place] [facility] [address] [id number] [place] [address]- 3758 Jul, [facility] [place] [facility] [address] [id number] [place] [address]- 0479 Jul, [facility] [place] [facility] [address] [id number] [place] [address]- 7422 Jul, [facility] [place] [facility] [address] [id number] [place] [address]- 8712 Jun, [facility] [place] [facility] [address] [id number] [place] [address]- 6882 Jun, [facility] [place] [facility] [address] [id number] [place] [address]- 0863 Jun, [facility] [place] [facility] [address] [id number] [place] [address]- 5945 Jun, [facility] [place] [facility] [address] [id number] [place] [address]- 5713 Jun, [facility] [place] [facility] [address] [id number] [place] [address]- 0206 Jun, [facility] [place] [facility] [address] [id number] [place] [address]- 2233 Jun, [facility] [place] [facility] [address] [id number] [place] [address]- 1267 May, [facility] [place] [facility] [address] [id number] [place] [address]- 0145 May, [facility] [place] [facility] [address] [id number] [place] [address]- 8637 May, [facility] [place] [facility] [address] [id number] [place] [address]- 3559 May, 2013 [facility] [place] [facility] [address] [id number] [place] [address]- 6183 May, 2013 [facility] [place] [facility] [address] [id number] [place] [address]- 1106 May, 2013 [facility] [place] [facility] [address] [id number] [place] [address]- 1904 May, 2013 [facility] [place] [facility] [address] [id number] [place] [address]- 1827 May, 2013 [facility] [place] [facility] [address] [id number] [place] [address]- 8607 May, [facility] [place] [facility] [address] [id number] [place] [address]- 0906 May, [facility] [place] [facility] [address] [id number] [place] [address]- 4163 May, [facility] [place] [facility] [address] [id number] [place] [address]- 5485 May, [facility] [place] [facility] [address] [id number] [place] [address]- 9760 Apr, [facility] [place] [facility] [address] [id number] [place] [address]- 0348 Apr, [facility] [place] [facility] [address] [id number] [place] [address]- 6112 Apr, [facility] [place] [facility] [address] [id number] [place] [address]- 6247 Apr, [facility] [place] [facility] [address] [id number] [place] [address]- 2067 Apr, [facility] [place] [facility] [address] [id number] [place] [address]- 1696 Apr, [facility] [place] [facility] [address] [id number] [place] [address]- 1832 Apr, [facility] [place] [facility] [address] [id number] [place] [address]- 0922 Apr, [facility] [place] [facility] [address] [id number] [place] [address]- 0132 Apr, [facility] [place] [facility] [address] [id number] [place] [address]- 4687 Apr, [facility] [place] [facility] [address] [id number] [place] [address]- 8252 March, [facility] [place] [facility] [address] [id number] [place] [address]- 7226 March, [facility] [place] [facility] [address] [id number] [place] [address]- 8100 March, [facility] [place] [facility] [address] [id number] [place] [address]- 4925 March, [facility] [place] [facility] [address] [id number] [place] [address]- 0969 March, [facility] [place] [facility] [address] [id number] [place] [address]- 6432 March, [facility] [place] [facility] [address] [id number] [place] [address]- 7269 Feb, [facility] [place] [facility] [address] [id number] [place] [address]- 9098 Feb, [facility] [place] [facility] [address] [id number] [place] [address] Feb, [facility] [place] [facility] [address] [id number] [place] [address] Feb, [facility] [place] [facility] [address] [id number] [place] [address] Feb, [facility] [place] [facility] [address] [id number] [place] [address] Feb, [facility] [place] [facility] [address] [id number] [place] [address] Feb, [facility] [place] [facility] [address] [id number] [place] [address] Feb, [facility] [place] [facility] [address] [id number] [place] [address] Feb, [facility] [place] [facility] [address] [id number] [place] [address] Feb, [facility] [place] [facility] [address] [id number] [place] [address]- [address] Jan, [facility] [place] [facility] [address] [id number] [place] [address]- [address] Jan, [facility] [place] [facility] [address] [id number] [place] [address]- 17[address] Jan, [facility] [place] [facility] [address] [id number] [place] [address]- [address] Jan, [facility] [place] [facility] [address] [id number] [place] [address]- 135[address] Jan, [facility] [place] [facility] [address] [id number] [place] [address]- [address] Jan, [facility] [place] [facility] [address] [facility] [id number] [place] [address] Jan, [facility] [place] [facility] [address] [id number] [place] [address] Jan, [facility] [place] [facility] [address] [id number] [place] [address]- [address] Dec, [facility] [place] [facility] [address] [id number] [place] [address] Dec, [facility] [place] [facility] [address] [id number] [place] [address]- 8038 Dec, [facility] [place] [facility] [address] [id number] [place] [address]- [address] Dec, [facility] [place] [facility] [address] [id number] [place] [address]- [address] Dec, [facility] [place] [facility] [address] [id number] [place] [address]- [address] Dec, [facility] [place] [facility] [address] [id number] [place] [address]- [address] Dec, [facility] [place] [facility] [address] [id number] [place] [address]- 6666 Dec, [facility] [place] [facility] [address] [id number] [place] [address]- [address] Nov, [facility] [place] [facility] [address] [id number] [place] [address]- [address]16 Nov, [facility] [place] [facility] [address] [id number] [place] [address]- 7979 Nov, [facility] [place] [facility] [address] [id number] [place] [address]- [address] Nov, [facility] [place] [facility] [address] [id number] [place] [address]- 78[address] Nov, [facility] [place] [facility] [address] [id number] [place] [address]- 7[address] Nov, [facility] [place] [facility] [address] [id number], [place] [address]- [address] Nov, [facility] [place] [facility] [address] [id number], [place] [address] Nov, [facility] [place] [facility] [address] [id number] [place] [address]- 8318 Nov, [facility] [place] [facility] [address] [id number] [place] [address]- 97[address] Nov, [facility] [place] [facility] [address] [id number] [place] [address]- 7935 Nov, [facility] [place] [facility] [address] [id number] [place] [address]- [address] Oct, [facility] [address] [id number] [place] [address]- [address]48 Oct, [facility] [place] [facility] [address] [id number] [place] [address] Oct, [facility] [place] [facility] [address] [id number] [place] [address]- [address] Oct, [facility] [place] [facility] [address] [id number] [place] [address] Sep, [facility] [place] [facility] [address] [id number] [place] [address] Sep, [facility] [place] [facility] [address] [id number] [place] [address]- [address]858 Sep, [facility] [place] [facility] [address] [id number] [place] [address]- [address] Sep, [facility] [place] [facility] [address] [id number] [place] [address]007 Aug, [facility] [place] [facility] [address] [id number] [place] [address] 64[address] Aug, [facility] [place] [facility] [address] [facility] [id number] [place] [address] Aug, [facility] [place] [facility] [address] [id number] [place] [address] 2580 Aug, [facility] [place] [facility] [address] [id number], [place] [address] Aug, [facility] [place] [facility] [address] [id number] [place] [address]- [address]403 Aug, [facility] [place] [facility] [address] [facility] [id number] [place] [address]- [address] Aug, [facility] [place] [facility] [address] [id number] [address] Aug, [facility] [place] [facility] [address] [id number] [place] [address]- [address] 28 Jul, 2012 [facility] [place] [facility] [address] [id number] [place] [address] 27 Sep, 2012 [facility] [facility] [address] [id number] [place] [address]45 26 Jul, 2012 [facility] [place] [facility] [address] [id number] [place] [address] 2548 24 Jul, 2012 [facility] [address] [id number] [place] [address]- 2548 24 Jul, 2012 [facility] [address] [id number] [place] [address]- 0470 23 Jul, 2012 [facility] [address] [id number] [place] [address]- 6694 19 Jul, 2012 [facility] [address] [id number] [place] [address]- 8365 18 Jul, 2012 [facility] [address] [id number] [place] [address]- 4735 17 Jul, 2012 [facility] [address] [id number] [place] [address]- 0343 16 Jul, 2012 [facility] [address] [id number] [place] [address]- 2542 13 Jul, 2012 [facility] [address] [id number] [place] [address]- 254 13 Jul, 2012 [facility] [address] [id number] [place] [address]- 2542 12 Jul, 2012 [facility] [address] [id number] [place] [address]- 2540 11 Jul, 2012 [facility] [place] [address] [id number] [place] [address]- 2547 04 Sep, 2012 [facility] [address] [id number] [place] [address]- 2546 Jun, [facility] [address] [id number] [place] [address]- 6684 Jun, [facility] [address] [id number] [place] [address]- 1522 Jun, [facility] [address] [id number] [place] [address]- 1432 May, [facility] [address] [id number] [place] [address]- 3325 May, [facility] [place] [address] [id number] [place] [address]- [address] May, [facility] [address] [id number] [place] [address]- 8671 May, [facility] [address] [id number] [place] [address]- 1548 Apr, [facility] [address] [id number] [place] [address]- 4187 Apr, [facility] [address] [id number] [place] [address]- 7386 Apr, [facility] [address] [id number] [place] [address]- 2164 Apr, [facility] [address] [id number] [place] [address]- 7448 March, [facility] [address] [id number] [place] [address]- 7178 March, [facility] [address] [id number] [place] [address]- 7288 March, [facility] [address] [id number] [place] [address]- 2600 Feb, [facility] [address] [id number] [place] [address]- 2121 Feb, [facility] [address] [id number] [place] [address]- 7864 Jan, [facility] [address] [id number] [place] [address]- 6590 Jan, [facility] [address] [id number] [place] [address]- 7147 Jan, [facility] [address] [id number] [place] [address]- 7217 Jan, [facility] [address] [id number] [place] [address]- 9470 Jan, [facility] [address] [id number] [place] [address]- 7199 Dec, [facility] [address] [id number] [place] [address]- 9966 Dec, [facility] [address] [id number] [place] [address]- 9016 Dec, [facility] [address] [id number] [place] [address]- 0072 Dec, [facility] [address] [id number] [place] [address]- 1257 Dec, [facility] [address] [facility] [id number] [place] [address]- 3172 Dec, [facility] [address] [id number] [place] [address]- 4987 Dec, [facility] [address] [id number] [place] [address]- 7553 Dec, [facility] [address] [id number] [place] [address]- 6849 Nov, [facility] [address] [id number] [place] [address]- 7370 Nov, [facility] [address] [id number] [place] [address]- 2546 Nov, [facility] [address] [id number] [place] [address]- 9435 Nov, [facility] [address] [id number] [place] [address]- 8386 Nov, [facility] [address] [id number] [place] [address]- 6582 Nov, [facility] [address] [id number] [place] [address]- 3393 Nov, [facility] [address] [id number] [place] [address]- 8839 Oct, [facility] [address] [id number] [place] [address]- 6800 Oct, [facility] [address] [id number] [place] [address]- 9861 Oct, [facility] [address] [id number] [place] [address]- 9989 Oct, [facility] [address] [id number] [place] [address]- 7104 Oct, [facility] [address] [id number] [place] [address]- 7299 Oct, [facility] [address] [id number] [place] [address]- 9641 Oct, [facility] [address] [id number] [place] [address]- 4696 Oct, [facility] [address] [id number] [place] [address]- 7174 Sep, [facility] [address] [id number] [place] [address]- 1854 Sep, [facility] [address] [id number] [place] [address]- 3039 Sep, [facility] [address] [id number] [place] [address]- 8412 Sep, [facility] [address] [id number] [place] [address]- 8448 Sep, [facility] [address] [id number] [place] [address]- 2075 Sep, [facility] [address] [id number] [place] [address]- 0021 Sep, [facility] [address] [id number] [place] [address]- 1943 Sep, [facility] [address] [id number] [place] [address]- 4371 Sep, [facility] [address] [id number] [place] [address]- 3000 Sep, [facility] [address] [id number] [place] [address]- 7295 Sep, [facility] [address] [id number] [place] [address]- 5232 Sep, [facility] [address] [id number] [place] [address]- 1648 Sep, [facility] [address] [id number] [place] [address]- 9685 Sep, [facility] [address] [id number] [place] [address]- 8417 Sep, [facility] [address] [id number] [place] [address]- 8489 Sep, [facility] [address] [id number] [place] [address]- 6000 Sep, [facility] [address] [id number] [place] [address]- 7933 Sep, [facility] [address] [id number] [place] [address]- 1191 Sep, [facility] [address] [id number] [place] [address]- 9637 Sep, [facility] [address] [id number] [place] [address]- 4009 Aug, [facility] [address] [id number] [place] [address]- 2661 Aug, [facility] [address] [id number] [place] [address]- 1227 Aug, [facility] [address] [id number] [place] [address]- 9766 Aug, [facility] [address] [id number] [place] [address]- 2684 Aug, [facility] [address] [id number] [place] [address]- 4536 Aug, [facility] [address] [id number], [place] [address]- 6601 Aug, [facility] [address] [id number], [place] [address]- 5308 Aug, [facility] [address] [facility] [id number], [place] [address]- 6103 Aug, [facility] [address] [facility] [id number], [place] [address]- 3982 16 Aug, 2012 [facility] [address] [id number], [place] [address]- 6629 15 Aug, 2012 [facility] [address] [id number], [place] [address]- 5058 Aug, [facility] [address] [id number], [place] [address]- 2455 Aug, [facility] [address] [facility] [id number], [place] [address]- 0214 Aug, [facility] [address] [id number], [place] [address]- 2137 04 Aug, 2012 [facility] [address] [id number] [place] [address]- 9535 14 Jul, 2012 [facility] [address] [id number] [place] [address]- 6126 10 Jul, 2012 [facility] [address] [id number] [place] [address]- 3016 31 Jun, 2012 [facility] [address] [id number] [place] [address]- 6436 Jun, [facility] [address] [id number] [place] [address]- 7009 31 May, 2012 [facility] [address] [id number] [place] [address]- 0293 May, [facility] [address] [id number] [place] [address]- 6135 May, [facility] [address] [id number] [place] [address]- 9914 May, [facility] [address] [id number] [place] [address]- 4791 May, [facility] [address] [id number] [place] [address]- 2762 May, [facility] [address] [id number] [place] [address]- 5890 Apr, [facility] [address] [id number] [place] [address]- 3927 Apr, [facility] [address] [id number] [place] [address]- 8562 March, [facility] [address] [id number] [place] [address]- 2615 March, [facility] [address] [id number] [place] [address]- 7345 March, [facility] [address] [id number] [place] [address]- 5698 15 Mar, 2012 [facility] [address] [id number] [place] [address]- 6680 March, [facility] [address] [id number] [place] [address]- 6026 March, [facility] [address] [id number] [place] [address]- 9056 Feb, [facility] [address] [id number] [place] [address]- 7269 Feb, [facility] [address] [id number] [place] [address]- 0543 Feb, [facility] [address] [id number] [place] [address]- 0355 Feb, [facility] [address] [id number] [place] [address]- 1603 Feb, [facility] [address] [id number] [place] [address]- 7124 Feb, [facility] [address] [id number] [place] [address]- 3647 Feb, [facility] [address] [id number] [place] [address]- 4423 Feb, [facility] [address] [id number] [place] [address]- 2086 Feb, [facility] [address] [id number] [place] [address]- 1920 Jan, [facility] [address] [id number] [place] [address]- 4990 Jan, [facility] [address] [id number] [place] [address]- 5966 Jan, [facility] [address] [id number] [place] [address]- 1327 22 Jan, 2012 [facility] [address] [id number] [place] [address]- 1159 21 Jan, 2012 [facility] [address] [id number] [place] [address]- 0109 20 Jan, 2012 [facility] [address] [id number] [place] [address]- 5076 14 Jan, 2012 [facility] [address] [id number] [place] [address]- 3965 09 Jan, 2012 [facility] [address] [id number] [place] [address]- 5148 09 Jan, 2012 [facility] [address] [id number] [place] [address]- 6435 08 Jan, 2012 [facility] [address] [id number] [place] [address]- 3587 07 Jan, 2012 [facility] [address] [id number] [place] [address]- 0622 06 Jan, 2012 [facility] [address] [id number] [place] [address]- 6108 02 Jan, 2012 [facility] [address] [id number] [place] [address]- 4872 02 Jan, 2012 [facility] [address] [id number] [place] [address]- 2560 28 Dec, 2011 [facility] [address] [id number] [place] [address]- 6684 27 Dec, 2011 [facility] [address] [id number] [place] [address]- 8378 25 Dec, 2011 [facility] [address] [id number] [place] [address]- 3280 23 Dec, 2011 [facility] [address] [id number] [place] [address]- 5196 16 Dec, 2011 [facility] [address] [id number] [place] [address]- 1406 08 Dec, 2011 [facility] [address] [id number] [place] [address]- 8286 08 Dec, 2011 [facility] [address] [id number] [place] [address] 2546 Dec, [facility] [address] [id number] [place] [address] 2546 Dec, [facility] [address] [id number] [place] [address] 2540 Nov, [facility] [address] [id number] [place] [address]- 1816 Nov, [facility] [address] [id number] [place] [address]- 0882 Nov, [facility] [address] [id number] [place] [address]- 2071 Nov, [facility] [address] [id number] [place] [address]- 1282 Oct, [facility] [address] [id number] [place] [address]- 2544 Oct, [facility] [address] [id number] [place] [address]- 6596 Oct, [facility] [address] [id number] [place] [address] 2546 Oct, [facility] [address] [id number] [place] [address] 2546 Oct, [facility] [facility] [address] [id number] [place] [address] 2546 Oct, [facility] [facility] [address] [id number] [place] [address] 2546 05 Oct, 2011 [facility] [facility] [address] [id number] [place] [address]- 5331 Sep, [facility] [place] [facility] [address] [id number] [place] [address]- 7839 Sep, [facility] [place] [facility] [address] [id number] [place] [address]- 5397 Sep, [facility] [place] [facility] [address] [id number] [place] 8125 Sep, [facility] [place] [facility] [address] [id number] [place] [address]- 1916 Sep, [facility] [place] [facility] [address] [id number] [place] [address]- 4258 Sep, [facility] [place] [facility] [address] [id number] [place] [address]- 4633 Sep, [facility] [place] [facility] [address] [id number] [place] [address]- 8347 Sep, [facility] [place] [facility] [address] [id number], [place] [address]- 4991 Sep, [facility] [place] [facility] [address] [id number] [place] [address]- 7097 Aug, [facility] [place] [facility] [address] [id number] [place] [address]- 2888 Aug, [facility] [place] [facility] [address] [id number], [place] [address]- 2732 Aug, [facility] [place] [facility] [address] [id number], [place] [address]- 9280 May, [facility] [place] [facility] [address] [id number] [place] [address]- 7424 Nov, [facility] [place] [facility] [address] [id number], [place] [address]- 5455 Oct, [facility] [place] [facility] [address] [id number] [place] 7872 Oct, [facility] [place] [facility] [address] [id number] [place] [address]- 7855 30 Oct, 2010 [facility] [address] [id number] [place] [address]- 4676 02 Oct, 2010 [facility] [place] [facility] [address] [id number] [place] [address] 2546 Oct, [facility] [address] [id number] [place] [address]- 7486 03 Sep, 2010 [facility] [address] [id number] [place] [address] 2546 Sep, [facility] [address] [id number] [place] [address]- 1447 14 Jul, 2010 [facility] [address] [id number] [place] [address]- 9342 31 Oct, 2009 [facility] [address] [id number] [place] [address]- 5843 Oct, [facility] [address] [id number] [place] [address]- 2394 Oct, [facility] [address] [id number] [place] [address]- 9574 Oct, [facility] [address] [facility] [id number] [place] [address]- 5972 30 Sep, 2009 [facility] [address] [id number] [place] [address] 2546 Sep, [facility] [place] [facility] [address] [id number], [place] [address] 2548 Sep, [facility] [place] [facility] [address] [id number] [place] [address] 254 04 Sep, 2009 [facility] [place] [facility] [address] [facility] [id number] [place] [address] 2546 03 Sep, 2009 [facility] [place] [facility] [address] [id number], [place] [address]- 3043 Jul, [facility] [address] [facility] [id number] [place] [address]- 7052 Apr, [facility] [address] [facility] [id number] [place] [address]- 3594 12 Dec, 2008 IMMUNIZATIONS No Known Immunizations SOCIAL HISTORY Never Assessed REASON FOR VISIT Requesting return call PLAN OF CARE VITAL SIGNS MEDICATIONS Unknown Medications RESULTS No Results PROCEDURES No Known procedures INSTRUCTIONS MEDICATIONS ADMINISTERED No Known Medications MEDICAL (GENERAL) HISTORY Type Description Date Medical History hypertension Medical History hyperlipidemia Medical History diabetes type II Medical History COPD Medical History asthma Surgical History hysterectomy Surgical History arthritis surgery Hospitalization History surgeries
--- OUTSIDE RECORDS SUMMARY | 2018-11-26 15:51 | XMS REPORT ---
Author Author KING FISHMAN Organization [facility] Address [address] [place] [address] Care Team Providers Care Um Nurse Name Role Phone KING FISHMAN Unavailable PROBLEMS Type Condition ICD9-CM Code VSG30-AD Code Onset Dates Condition Status SNOMED Code Problem Gastroesophageal reflux disease, esophagitis presence not specified K21.9 Active 862893665 Problem Lumbago with sciatica, right side M54.41 Active [id number] Problem Lumbago with sciatica, left side M54.42 Active 636924308 Problem Iron deficiency anemia due to chronic blood loss D50.0 Active 360863101 Problem Seizures R56.9 Active 30662720 Problem Cigarette nicotine dependence without complication F17.210 Active 87053730 Problem Other chronic pain G89.29 Active 45857364 Problem Chronic obstructive pulmonary disease, unspecified COPD type J44.9 Active 81246179 Problem Pain in right ankle and joints of right foot M25.571 Active 04031648309571 Problem Reactive depression F32.9 Active 89284075 Problem Mixed hyperlipidemia E78.2 Active 838777580 Problem Essential hypertension I10 Active 99838696 Problem Prediabetes R73.03 Active 147621993 Problem Acquired hypothyroidism E03.9 Active 453846305 ALLERGIES No Information ENCOUNTERS Encounter Location Date Diagnosis [facility] [id number] [address] Oct, [facility] [id number] [place] [address] 01346- 2523 Jul, [facility] [id number] [place] [address] 52028- 9140 Jun, Pain in thoracic spine M54.6 [facility] [id number], [place] [address] Jun, Iron deficiency anemia due to chronic blood loss D50.0 and Hematochezia K92.1 [facility] [id number] [place] [address] 02996- 2953 Jun, Gastroenteritis K52.9 and Abnormal RBC indices R71.8 [facility] [id number] [place] [address] 99919- 6718 Jun, [facility] [address] [address]- [address] Jun, Chest congestion R09.89 and Seizures R56.9 [facility] [address] [address]- 0902 May, Pain in thoracic spine M54.6 [facility] [address] [address]- 8326 May, [facility] [address] 16408- 4723 May, [facility] [id number] [place] [address] 50299- 8762 May, [facility] [address] [address]- 5403 May, Acute non-recurrent frontal sinusitis J01.10 and Dermatitis L30.9 [facility] [id number] [place] [address] 49388- 2417 May, [facility] [address] [address] 2541 May, Pain in thoracic spine M54.6 [facility] [id number] [place] [address] 41684- 5669 May, [facility] [address] 0[address]30- 5424 May, Acute nasopharyngitis J00 [facility] [address] [address]281- 8784 May, [place] [address], [place] [address] 357[address] May, [facility] [id number] [place] [address] 83371- 2286 Apr, [place] [id number] [place] [address] 81529- 0750 Apr, [facility] [place] [id number] [place] [address] 18321- 8423 Apr, [facility] [id number] [place] [address] 72184- 0081 Apr, [place] [id number] [place] [address] 96850- 1992 Apr, Pain in right ankle and joints of right foot M25.571 [facility] [id number] [place] [address] 89451- 9114 Apr, [facility] [place] [address] [place] [address] 03925- 7681 Apr, Bronchitis J40 ; Pain in right ankle and joints of right foot M25.571 ; Other chronic pain G89.29 ; Prediabetes R73.03 ; Chronic obstructive pulmonary disease, unspecified COPD type J44.9 and Cigarette nicotine dependence without complication F17.210 [facility] [id number] [place] [address] 52337 -0980 Apr, Seasonal allergic rhinitis, unspecified trigger J30.2 [facility] [id number] [place] [address] 90055- 7479 08 Apr, 2018 Onychomycosis B35.1 ; Onychocryptosis L60.0 and DM 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 [facility] [address], [place] [address] 4570 Apr, Reactive depression F32.9 ; Thoracic myofascial strain, initial encounter S29.019A and Leg cramps R25.2 [facility] [id number] [place] [address] 29540- 9454 March, [facility] [address] 99081- 1926 March, Type 2 diabetes mellitus with hyperglycemia E11.65 [facility] [address] 98304- 8069 March, Reactive depression F32.9 [facility] [address] 59002- 2374 March, Pain in thoracic spine M54.6 and Other chronic pain G89.29 [facility] [address] 42491- 2041 Feb, [place] [address] 41810- 6250 Jan, Reactive depression F32.9 ; Essential hypertension I10 ; Gastroesophageal reflux disease, esophagitis presence not specified K21.9 ; Lumbago with sciatica, left side M54.42 and Lumbago with sciatica, right side M54.41 [facility] [address] 48786- 9363 Jan, Reactive depression F32.9 and Pharyngoesophageal dysphagia R13.14 [facility] [place] [id number] [place] [address] 27686- 2225 Jan, [place] [id number] [place] [address] 91804- 5144 Jan, Encounter for immunization Z23 [place] [id number] [place] [address] 76427- 8620 Jan, Onychomycosis B35.1 and DM 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 [facility] [place] [id number] [place] [address] 15394- 9864 Jan, [place] [address] 15848- 7337 Jan, Prediabetes R73.03 [facility] [id number] [place] [address] 16400- 0451 Dec, [place] [address] 98471- 5648 Dec, Essential hypertension I10 ; Mixed hyperlipidemia E78.2 ; Acquired hypothyroidism E03.9 ; Reactive depression F32.9 and Prediabetes R73.03 [place] [address] 32943- 3552 Dec, [place] [id number] [place] [address] 76289- 1390 Dec, [place] [id number] [place] [address] 41978- 3033 Dec, DM 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 [facility] [id number] [place] [address] 28111 -4509 Dec, Bruise T14.8XXA ; Type 2 diabetes mellitus with hyperglycemia E11.65 and jail current use of insulin Z79.4 [place] [id number] [place] [address] 49203- 0123 Oct, [place] [id number] [place] [address] 89764- 9305 March, Onychomycosis B35.1 and DM 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 [place] [id number] [place] [address] 99709- 2071 Jun, [place] [address] 37237- 1549 Jun, [place] [id number] [place] [address] 32842- 9763 Jun, COPD with acute exacerbation 491.21 [place] [place] [address] 47241- 5254 Apr, [facility] [place] [facility] [address] [id number] [place] [address]- 5569 14 Feb, 2015 [facility] [place] [facility] [address] [id number] [place] [address]- 8373 13 Feb, 2015 [facility] [place] [facility] [address] [id number] [place] [address]- 8733 26 Jan, 2015 [facility] [place] [facility] [address] [id number] [place] [address]- 1514 Jan, [facility] [place] [facility] [address] [id number] [place] [address]- 1464 Jan, [facility] [place] [facility] [address] [id number] [place] [address]- 4785 Jan, [facility] [place] [facility] [address] [id number] [place] [address]- 1806 Jan, [facility] [place] [facility] [address] [id number] [place] [address]- 8465 Jan, [facility] [place] [facility] [address] [id number] [place] [address]- 5456 Jan, [facility] [place] [facility] [address] [id number] [place] [address]- 8107 Jan, [facility] [place] [facility] [address] [id number] [place] [address]- 3996 Jan, [facility] [place] [facility] [address] [id number] [place] [address]- 6739 Jan, [facility] [place] [facility] [address] [id number] [place] [address]- 4330 19 Jan, 2015 [facility] [place] [facility] [address] [id number] [place] [address]- 2388 18 Jan, 2015 [facility] [place] [facility] [address] [id number] [place] [address]- 2787 18 Jan, 2015 [facility] [place] [facility] [address] [id number] [place] [address]- 3696 16 Jan, 2015 [facility] [place] [facility] [address] [id number] [place] [address]- 7304 16 Jan, 2015 [facility] [place] [facility] [address] [id number] [place] 1434 16 Jan, 2015 [facility] [place] [facility] [address] [id number] [place] [address]- 6618 16 Jan, 2015 [facility] [place] [facility] [address] [id number] [place] [address]- 1537 15 Jan, 2015 [facility] [place] [facility] [address] [id number] [place] [address]- 7556 13 Jan, 2015 [facility] [place] [facility] [address] [id number] [place] [address]- 0921 13 Jan, 2015 [facility] [place] [facility] [address] [id number] [place] [address]- 9204 13 Jan, 2015 [facility] [place] [facility] [address] [id number] [place] [address]- 3093 13 Jan, 2015 [facility] [place] [facility] [address] [id number] [place] [address]- 8021 Jan, [facility] [place] [facility] [address] [id number] [place] [address]- 7513 04 Jan, 2015 [facility] [place] [facility] [address] [id number] [place] [address]- 3919 Jan, [facility] [place] [facility] [address] [id number] [place] [address]- 6388 24 Dec, 2014 [facility] [place] [facility] [address] [id number] [place] [address]- 4203 Dec, [facility] [place] [facility] [address] [id number] [place] [address]- 3199 Dec, [facility] [place] [facility] [address] [id number] [place] [address]- 6348 Dec, [facility] [place] [facility] [address] [id number] [place] [address]- 7353 Dec, 2014 [facility] [place] [facility] [address] [id number] [place] [address]- 5996 Dec, 2014 [facility] [place] [facility] [address] [id number] [place] [address]- 8107 Dec, 2014 [facility] [place] [facility] [address] [id number] [place] [address]- 6321 Dec, 2014 [facility] [place] [facility] [address] [id number] [place] [address]- 6487 Dec, 2014 [facility] [place] [facility] [address] [id number] [place] [address]- 9883 Dec, 2014 [facility] [place] [facility] [address] [facility] [id number] [place] [address]- 2624 Dec, [facility] [place] [facility] [address] [id number], [place] [address]- 1560 Dec, [facility] [place] [facility] [address] [id number] [place] [address]- 1827 Nov, [facility] [place] [facility] [address] [facility] [id number], [place] [address]- 6203 Nov, [facility] [place] [facility] [address] [facility] [id number], [place] [address]- 9599 Nov, [facility] [place] [facility] [address] [id number], [place] [address]- 8173 Nov, [facility] [place] [facility] [address] [id number], [place] [address]- 4550 Nov, [facility] [place] [facility] [address] [id number], [place] [address]- 4759 Nov, [facility] [place] [facility] [address] [id number], [place] [address]- 9681 Nov, [facility] [place] [facility] [address] [id number], [place] [address]- 9824 Nov, [facility] [address] [id number] [place] [address]- 1422 Nov, [facility] [place] [facility] [address] [id number] [place] [address]- 0911 Nov, [facility] [place] [facility] [address] [facility] [id number] [place] [address]- 1045 Nov, [facility] [place] [facility] [address] [id number] [place] [address]- 5714 Nov, [facility] [place] [facility] [address] [id number] [place] [address]- 6776 Oct, [facility] [place] [facility] [address] [id number] [place] [address]- 1073 Oct, [facility] [address] [facility] [id number] [place] [address]- 6745 Oct, [facility] [place] [facility] [address] [id number] [place] [address]- 9585 30 Oct, 2014 [facility] [place] [facility] [address] [id number] [place] [address]- 0648 Oct, [facility] [place] [facility] [address] [facility] [id number] [place] [address]- 7348 29 Oct, 2014 [facility] [place] [facility] [address] [id number] [place] [address]- 4831 Oct, [facility] [place] [facility] [address] [id number] [place] [address]- 0164 23 Oct, 2014 [facility] [place] [facility] [address] [id number] [place] [address]- 8881 17 Oct, 2014 [facility] [place] [facility] [address] [id number] [place] [address]- 3923 17 Oct, 2014 [facility] [place] [facility] [address] [facility] [id number] [place] [address]- 9072 16 Oct, 2014 [facility] [place] [facility] [address] [id number] [place] [address]- 0636 16 Oct, 2014 [facility] [place] [facility] [address] [id number] [place] 9308 Oct, [facility] [place] [facility] [address] [id number] [place] 7959 Oct, [facility] [place] [facility] [address] [id number] [place] 3280 Oct, [facility] [place] [facility] [address] [id number] [place] [address]- 6039 Sep, [facility] [place] [facility] [address] [id number] [place] [address]- 9686 Sep, [facility] [place] [facility] [address] [id number] [place] [address]- 8598 Sep, [facility] [place] [facility] [address] [id number] [place] [address]- 5767 Sep, [facility] [place] [facility] [address] [id number] [place] [address]- 5406 Aug, [facility] [place] [facility] [address] [id number] [place] [address]- 7389 Aug, [facility] [place] [facility] [address] [id number] [place] [address]- 8612 Aug, [facility] [place] [facility] [address] [id number] [place] [address]- 1392 Aug, [facility] [place] [facility] [address] [id number] [place] [address]- 2870 Aug, [facility] [place] [facility] [address] [id number] [place] 8397 Aug, [facility] [place] [facility] [address] [id number] [place] 7009 Jul, [facility] [place] [facility] [address] [id number] [place] [address]- 1353 Jul, [facility] [place] [facility] [address] [id number] [place] [address]- 1364 Jul, [facility] [place] [facility] [address] [id number] [place] [address]- 8712 Jul, [facility] [place] [facility] [address] [id number] [place] [address]- 7678 Jul, [facility] [place] [facility] [address] [id number] [place] [address]- 6290 Jul, [facility] [place] [facility] [address] [id number] [place] [address]- 9422 Jun, [facility] [place] [facility] [address] [id number] [place] [address]- 2581 Jun, [facility] [place] [facility] [address] [id number] [place] [address]- 7325 Jun, [facility] [place] [facility] [address] [id number] [place] [address]- 8155 Jun, [facility] [place] [facility] [address] [id number] [place] [address]- 5790 Jun, [facility] [place] [facility] [address] [id number] [place] [address]- 6843 Jun, [facility] [place] [facility] [address] [id number] [place] [address]- 3811 Jun, [facility] [place] [facility] [address] [id number] [place] [address]- 7127 May, [facility] [place] [facility] [address] [id number] [place] [address]- 3028 May, [facility] [place] [facility] [address] [id number] [place] [address]- 7228 May, [facility] [place] [facility] [address] [id number] [place] [address]- 6758 May, [facility] [place] [facility] [address] [id number] [place] [address]- 3572 May, 2013 [facility] [place] [facility] [address] [id number] [place] [address]- 0726 May, 2013 [facility] [place] [facility] [address] [id number] [place] [address]- 4191 May, 2013 [facility] [place] [facility] [address] [id number] [place] [address]- 2737 May, 2013 [facility] [place] [facility] [address] [id number] [place] [address]- 4121 May, 2013 [facility] [place] [facility] [address] [id number] [place] [address]- 7187 May, 2013 [facility] [place] [facility] [address] [id number] [place] [address]- 8721 May, [facility] [place] [facility] [address] [id number] [place] [address]- 6568 May, [facility] [place] [facility] [address] [id number] [place] [address]- 0579 Apr, [facility] [place] [facility] [address] [id number] [place] [address]- 3781 Apr, [facility] [place] [facility] [address] [id number] [place] [address]- 5376 Apr, [facility] [place] [facility] [address] [id number] [place] [address]- 4749 Apr, [facility] [place] [facility] [address] [id number] [place] [address]- 2600 Apr, [facility] [place] [facility] [address] [id number] [place] [address]- 3249 Apr, [facility] [place] [facility] [address] [id number] [place] [address]- 4067 Apr, [facility] [place] [facility] [address] [id number] [place] [address]- 0514 Apr, [facility] [place] [facility] [address] [id number] [place] [address]- 6964 Apr, [facility] [place] [facility] [address] [id number] [place] [address]- 2057 Apr, [facility] [place] [facility] [address] [id number] [place] [address]- 1455 March, [facility] [place] [facility] [address] [id number] [place] [address]- 8758 March, [facility] [place] [facility] [address] [id number] [place] [address]- 2953 March, [facility] [place] [facility] [address] [id number] [place] [address]- 5948 March, [facility] [place] [facility] [address] [id number] [place] [address]- 5850 March, [facility] [place] [facility] [address] [id number] [place] [address]- 3230 March, [facility] [place] [facility] [address] [id number] [place] [address]- 9619 Feb, [facility] [place] [facility] [address] [id number] [place] [address]- 3473 Feb, [facility] [place] [facility] [address] [id number] [place] [address]- 2315 Feb, [facility] [place] [facility] [address] [id number] [place] [address]- 7313 Feb, [facility] [place] [facility] [address] [id number] [place] [address]- 9625 Feb, [facility] [place] [facility] [address] [id number] [place] [address]- 2088 Feb, [facility] [place] [facility] [address] [id number] [place] [address]- 4028 Feb, [facility] [place] [facility] [address] [id number] [place] [address]- 2546 Feb, [facility] [place] [facility] [address] [id number] [place] 8669 Feb, [facility] [place] [facility] [address] [id number] [place] [address]- 8313 Feb, [facility] [place] [facility] [address] [id number] [place] [address]- 1335 Jan, [facility] [place] [facility] [address] [id number] [place] [address]- 9594 Jan, [facility] [place] [facility] [address] [id number] [place] [address]- 7434 Jan, [facility] [place] [facility] [address] [id number] [place] [address]- 3132 Jan, [facility] [place] [facility] [address] [id number] [place] [address]- 2855 Jan, [facility] [place] [facility] [address] [id number] [place] [address] Jan, [facility] [place] [facility] [address] [id number] [place] [address] Jan, [facility] [place] [facility] [address] [id number] [place] [address] Jan, [facility] [place] [facility] [address] [id number] [place] [address] Dec, [facility] [place] [facility] [address] [id number] [place] [address] Dec, [facility] [place] [facility] [address] [id number] [place] [address] Dec, [facility] [place] [facility] [address] [id number] [place] [address] Dec, [facility] [place] [facility] [address] [facility] [id number] [place] [address] Dec, [facility] [place] [facility] [address] [id number] [place] [address] Dec, [facility] [place] [facility] [address] [id number] [place] [address] Dec, [facility] [place] [facility] [address] [id number] [place] [address]- [address] Dec, [facility] [place] [facility] [address] [id number] [place] [address]- [address] Nov, [facility] [place] [facility] [address] [id number] [place] [address] Nov, [facility] [place] [facility] [address] [id number] [place] [address]- [address]29 Nov, [facility] [place] [facility] [address] [id number] [place] [address]- [address] Nov, [facility] [place] [facility] [address] [id number] [place] [address]- 9767 Nov, [facility] [place] [facility] [address] [id number] [place] [address]- [address] Nov, [facility] [place] [facility] [address] [id number] [place] [address]- 69[address] Nov, [facility] [place] [facility] [address] [id number] [place] [address]- [address]77 Nov, [facility] [place] [facility] [address] [id number] [place] [address]- [address] Nov, [facility] [place] [facility] [address] [id number] [place] [address]- 1535 Nov, [facility] [place] [facility] [address] [id number] [place] [address]- [address] Nov, [facility] [place] [facility] [address] [id number] [place] [address] Oct, [facility] [place] [facility] [address] [id number] [place] [address]- [address] Oct, [facility] [place] [facility] [address] [id number] [place] [address]- [address] Oct, [facility] [place] [facility] [address] [id number] [place] [address] Oct, [facility] [place] [facility] [address] [id number] [place] [address]- 9713 Sep, [facility] [place] [facility] [address] [id number] [place] [address]- 134[address] Sep, [facility] [place] [facility] [address] [id number] [place] [address]- [address]994 Sep, [facility] [place] [facility] [address] [id number] [place] [address] Sep, [facility] [place] [facility] [address] [id number] [place] [address] 228[address] Aug, [facility] [place] [facility] [address] [id number] [place] [address]557 Aug, [facility] [place] [facility] [address] [id number] [place] [address] 4399 Aug, [facility] [place] [facility] [address] [id number] [place] [address]- 6810 Aug, [facility] [place] [facility] [address] [id number], [place] [address] Aug, [facility] [place] [facility] [address] [id number], [place] [address] Aug, [facility] [place] [facility] [address] [id number] [place] [address] Aug, [facility] [place] [facility] [address] [id number], [place] [address] Aug, [facility] [place] [facility] [address] [id number] [place] [address] Jul, [facility] [place] [facility] [address] [id number] [place] [address] 2540 27 Sep, 2012 [facility] [address] [id number] [place] [address] 2546 26 Sep, 2012 [facility] [address] [id number] [place] [address] 2546 24 Sep, 2012 [facility] [address] [id number] [place] [address] 2542 24 Sep, 2012 [facility] [address] [id number] [place] [address]- [address]43 23 Sep, 2012 [facility] [address] [id number] [place] [address]- [address]269 19 Sep, 2012 [facility] [address] [id number] [place] [address]- [address] 18 Sep, 2012 [facility] [address] [id number] [place] [address]- [address] 17 Sep, 2012 [facility] [address] [id number] [place] [address]- [address]90 16 Jul, 2012 [facility] [address] [id number] [place] [address]- [address]47 13 Jul, 2012 [facility] [address] [id number] [place] [address]- [address]393 13 Jul, 2012 [facility] [address] [id number] [place] [address] 2540 12 Jul, 2012 [facility] [address] [id number] [place] [address]- [address]43 11 Jul, 2012 [facility] [place] [facility] [address] [id number] [place] [address] 2545 04 Jul, 2012 [facility] [place] [facility] [address] [id number] [place] [address]45 30 Jun, 2013 [facility] [address] [id number] [place] [address] 1583 Jun, [facility] [address] [id number] [place] [address] 5[address] Jun, [facility] [place] [facility] [address] [id number] [place] [address] 87[address] May, [facility] [place] [facility] [address] [id number] [place] [address] 5744 May, [facility] [place] [facility] [address] [id number] [place] [address]- 8952 May, [facility] [place] [facility] [address] [id number] [place] [address] 3676 May, [facility] [place] [facility] [address] [id number] [place] [address] 6144 Apr, [facility] [place] [facility] [address] [id number] [place] [address]- 2023 Apr, [facility] [place] [facility] [address] [id number] [place] [address]- 7681 Apr, [facility] [place] [facility] [address] [id number] [place] [address] 37[address] Apr, [facility] [place] [facility] [address] [id number] [place] [address]- 4688 March, [facility] [place] [facility] [address] [id number] [place] [address]- 0690 March, [facility] [place] [facility] [address] [id number], [place] [address] March, [facility] [place] [facility] [address] [id number] [place] [address]- 2107 Feb, [facility] [place] [facility] [address] [id number] [place] [address]- 7344 Feb, [facility] [place] [facility] [address] [id number] [place] [address]- 9474 Jan, [facility] [place] [facility] [address] [id number], [place] [address] 65[address] Jan, [facility] [address] [id number] [place] [address]- 5699 Jan, [facility] [address] [id number] [place] [address]- 9538 Jan, [facility] [address] [facility] [id number] [place] [address]- 1769 Jan, [facility] [address] [id number] [place] [address]- 5405 Dec, [facility] [address] [id number] [place] [address]- 0039 Dec, [facility] [address] [id number] [place] [address]- 3380 Dec, [facility] [address] [id number] [place] [address]- 2179 Dec, [facility] [address] [id number] [place] [address]- 3808 Dec, [facility] [address] [facility] [id number] [place] [address]- 3372 Dec, [facility] [address] [facility] [id number], [place] [address] Dec, [facility] [address] [facility] [id number] [place] [address]- 2542 Dec, [facility] [address] [id number] [place] [address]- 2416 Nov, [facility] [address] [id number] [place] [address]- 9591 Nov, [facility] [address] [id number] [place] [address]- 4679 Nov, [facility] [address] [facility] [id number] [place] [address]- 0108 Nov, [facility] [place] [facility] [address] [id number] [place] [address]- 4671 Nov, [facility] [place] [facility] [address] [id number] [place] [address]- 5049 Nov, [facility] [place] [facility] [address] [id number] [place] [address]- 9270 Nov, [facility] [place] [facility] [address] [id number] [place] [address]- 4197 Oct, [facility] [place] [facility] [address] [id number] [place] [address]- 8983 Oct, [facility] [place] [facility] [address] [id number] [place] [address]- 3550 Oct, [facility] [place] [facility] [address] [id number] [place] [address]- 9738 Oct, [facility] [place] [facility] [address] [id number] [place] [address]- 1125 Oct, [facility] [place] [facility] [address] [id number] [place] [address]- 6940 Oct, [facility] [place] [facility] [address] [id number], [place] [address]- 1433 Oct, [facility] [place] [facility] [address] [id number], [place] [address]- 8573 Oct, [facility] [place] [facility] [address] [id number], [place] [address]- 4869 Sep, [facility] [place] [facility] [address] [id number] [place] [address]- 8006 Sep, [facility] [place] [facility] [address] [id number] [place] [address]- 4138 Sep, [facility] [place] [facility] [address] [id number], [place] [address]- 0250 Sep, [facility] [place] [facility] [address] [id number], [place] [address]- 3800 Sep, [facility] [place] [facility] [address] [id number] [place] [address]- 2419 Sep, [facility] [place] [facility] [address] [id number] [place] [address]- 5354 Sep, [facility] [place] [facility] [address] [facility] [id number] [place] [address]- 6881 Sep, [facility] [place] [facility] [address] [id number] [place] [address]- 5949 Sep, [facility] [place] [facility] [address] [id number] [place] [address]- 2465 Sep, [facility] [place] [facility] [address] [id number] [place] [address]- 0275 Sep, [facility] [place] [facility] [address] [id number], [place] [address]- 3664 Sep, [facility] [place] [facility] [address] [id number] [place] [address]- 8763 Sep, [facility] [place] [facility] [address] [id number] [place] [address]- 6526 Sep, [facility] [place] [facility] [address] [facility] [id number] [place] [address]- 3651 Sep, [facility] [place] [facility] [address] [id number] [place] [address]- 0311 Sep, [facility] [place] [facility] [address] [id number], [place] [address]- 3529 Sep, [facility] [place] [facility] [address] [id number] [place] [address]- 8995 Sep, [facility] [place] [facility] [address] [facility] [id number] [place] [address]- 9338 Sep, [facility] [place] [facility] [address] [id number] [place] [address]- 6636 Sep, [facility] [place] [facility] [address] [id number] [place] [address]- 4701 31 Aug, 2011 [facility] [place] [facility] [address] [id number] [place] [address]- 6265 31 Aug, 2011 [facility] [place] [facility] [address] [id number] [place] [address]- 1481 29 Aug, 2011 [facility] [place] [facility] [address] [id number] [place] [address]- 8473 27 Aug, 2011 [facility] [place] [facility] [address] [id number] [place] [address]- 7763 27 Aug, 2011 [facility] [place] [facility] [address] [id number] [place] [address]- 4408 18 Aug, 2012 [facility] [place] [facility] [address] [id number] [place] [address]- 7660 18 Aug, 2012 [facility] [place] [facility] [address] [id number] [place] [address]- 6804 17 Aug, 2012 [facility] [place] [facility] [address] [id number] [place] [address]- 9339 16 Aug, 2012 [facility] [place] [facility] [address] [id number] [place] [address]- 4144 16 Aug, 2012 [facility] [place] [facility] [address] [id number] [place] [address]- 5547 15 Aug, 2012 [facility] [place] [facility] [address] [id number] [place] [address]- 0545 09 Aug, 2012 [facility] [place] [facility] [address] [id number] [place] [address]- 1771 05 Aug, 2012 [facility] [place] [facility] [address] [id number] [place] [address]- 2361 05 Aug, 2012 [facility] [place] [facility] [address] [id number] [place] [address]- 9883 04 Aug, 2012 [facility] [place] [facility] [address] [id number] [place] [address]- 8894 14 Jul, 2012 [facility] [place] [facility] [address] [id number] [place] [address]- 9546 10 Jul, 2012 [facility] [place] [facility] [address] [id number] [place] [address]- 6942 31 Jun, 2012 [facility] [place] [facility] [address] [id number] [place] [address]- 7455 Jun, [facility] [place] [facility] [address] [id number] [place] [address]- 2421 May, [facility] [place] [facility] [address] [id number] [place] [address]- 4506 May, [facility] [place] [facility] [address] [id number] [place] [address]- 9945 May, [facility] [place] [facility] [address] [id number] [place] [address]- 3715 May, [facility] [place] [facility] [address] [id number] [place] [address]- 4821 May, [facility] [place] [facility] [address] [id number] [place] [address]- 7534 May, [facility] [place] [facility] [address] [id number] [place] [address]- 6252 Apr, [facility] [place] [facility] [address] [id number] [place] [address]- 6129 Apr, [facility] [place] [facility] [address] [id number] [place] [address]- 0509 March, [facility] [place] [facility] [address] [id number] [place] [address]- 4485 March, [facility] [place] [facility] [address] [id number] [place] [address]- 9302 March, [facility] [place] [facility] [address] [id number] [place] [address]- 1409 March, [facility] [place] [facility] [address] [id number] [place] [address]- 3741 March, [facility] [address] [id number] [place] [address]- 7501 March, [facility] [place] [facility] [address] [id number] [place] [address]- 7686 Feb, [facility] [address] [id number] [place] [address]- 4639 Feb, [facility] [place] [facility] [address] [id number] [place] [address]- 4765 Feb, [facility] [address] [id number] [place] [address]- 0967 Feb, [facility] [place] [facility] [address] [id number] [place] [address]- 9908 Feb, [facility] [address] [id number] [place] [address]- 2819 Feb, [facility] [place] [facility] [address] [id number] [place] [address]- 9412 Feb, [facility] [place] [facility] [address] [id number] [place] [address]- 9895 Feb, [facility] [address] [id number] [place] [address]- 5921 Feb, [facility] [place] [facility] [address] [id number] [place] [address]- 7085 Jan, [facility] [place] [facility] [address] [id number] [place] [address]- 7154 Jan, [facility] [place] [facility] [address] [id number] [place] [address]- 8340 Jan, [facility] [place] [facility] [address] [id number] [place] [address]- 3380 Jan, [facility] [place] [facility] [address] [id number] [place] [address]- 8961 Jan, [facility] [place] [facility] [address] [id number] [place] [address]- 1216 20 Jan, 2012 [facility] [place] [facility] [address] [id number] [place] [address]- 6526 14 Jan, 2012 [facility] [place] [facility] [address] [id number] [place] [address]- 1456 09 Jan, 2012 [facility] [place] [facility] [address] [id number] [place] [address]- 8803 09 Jan, 2012 [facility] [place] [facility] [address] [id number] [place] [address]- 0465 08 Jan, 2012 [facility] [place] [facility] [address] [id number] [place] [address]- 5902 07 Jan, 2012 [facility] [place] [facility] [address] [id number] [place] [address]- 9281 06 Jan, 2012 [facility] [place] [facility] [address] [id number] [place] [address]- 2999 Jan, [facility] [place] [facility] [address] [id number] [place] [address]- 3424 Jan, [facility] [place] [facility] [address] [id number] [place] [address]- 5987 28 Dec, 2011 [facility] [place] [facility] [address] [id number] [place] [address]- 6521 27 Dec, 2011 [facility] [place] [facility] [address] [id number] [place] [address]- 4388 25 Dec, 2011 [facility] [place] [facility] [address] [id number] [place] [address]- 3463 23 Dec, 2011 [facility] [place] [facility] [address] [id number] [place] [address]- 2696 16 Dec, 2011 [facility] [place] [facility] [address] [id number] [place] [address]- 3201 08 Dec, 2011 [facility] [place] [facility] [address] [id number] [place] [address]- 8821 08 Dec, 2011 [facility] [address] [id number] [place] [address]- 7036 Dec, [facility] [place] [facility] [address] [id number] [place] [address]- 0576 Dec, [facility] [address] [id number] [place] [address]- 6372 Nov, [facility] [place] [facility] [address] [id number] [place] [address]- 4471 Nov, [facility] [address] [id number] [place] [address]- 9712 Nov, [facility] [place] [facility] [address] [id number] [place] [address]- 4289 Nov, [facility] [address] [id number] [place] [address]- 1346 Oct, [facility] [address] [id number] [place] [address]- 2499 Oct, [facility] [place] [facility] [address] [id number] [place] [address]- 5628 Oct, [facility] [address] [id number] [place] [address]- 5917 Oct, [facility] [place] [facility] [address] [id number] [place] [address]- 3386 Oct, [facility] [place] [facility] [address] [id number] [place] [address]- 1473 Oct, [facility] [place] [facility] [address] [id number] [place] [address]- 3354 Oct, [facility] [place] [facility] [address] [id number] [place] [address]- 0030 Sep, [facility] [place] [facility] [address] [id number] [place] [address]- 3810 Sep, [facility] [place] [facility] [address] [id number] [place] [address]- 3998 Sep, [facility] [place] [facility] [address] [id number] [place] [address]- 7530 Sep, [facility] [place] [facility] [address] [id number] [place] [address]- 6175 Sep, [facility] [place] [facility] [address] [id number] [place] [address]- 6500 Sep, [facility] [place] [facility] [address] [id number] [place] [address]- 0163 Sep, [facility] [place] [facility] [address] [id number] [place] [address]- 6490 Sep, [facility] [place] [facility] [address] [id number] [place] [address]- 6326 Sep, [facility] [place] [facility] [address] [id number] [place] [address]- 8956 Aug, [facility] [place] [facility] [address] [id number] [place] [address]- 3129 Aug, [facility] [place] [facility] [address] [id number] [place] [address]- 2899 Aug, [facility] [place] [facility] [address] [id number] [place] [address]- 0192 May, [facility] [place] [facility] [address] [id number], [place] [address]- 5199 Nov, [facility] [place] [facility] [address] [id number] [place] [address]- 2213 Oct, [facility] [place] [facility] [address] [id number] [place] [address]- 7940 Oct, [facility] [place] [facility] [address] [id number] [place] 1302 Oct, [facility] [place] [facility] [address] [id number], [place] [address]- 3820 Oct, [facility] [address] [id number] [place] [address]- 4818 Oct, [facility] [place] [facility] [address] [id number], [place] [address]- 9961 03 Sep, 2010 [facility] [address] [id number] [place] [address]- 1052 02 Sep, 2010 [facility] [place] [facility] [address] [id number], [place] [address]- 2525 14 Jul, 2010 [facility] [address] [id number] [place] [address]- 7496 Oct, [facility] [place] [facility] [address] [id number], [place] [address]- 3102 Oct, [facility] [address] [facility] [id number], [place] [address]- 5317 Oct, [facility] [place] [facility] [address] [id number], [place] [address]- 0381 Oct, [facility] [place] [facility] [address] [id number], [place] [address]- 9373 30 Sep, 2009 [facility] [place] [facility] [address] [id number], [place] [address]- 5395 Sep, [facility] [place] [facility] [address] [id number], [place] [address]- 0608 Sep, [facility] [place] [facility] [address] [id number], [place] [address]- 3034 04 Sep, 2009 [facility] [place] [facility] [address] [id number], [place] [address]- [address] 03 Sep, 2009 [facility] [place] [facility] [address] [id number], [place] [address]- 5269 11 Jul, 2009 [facility] [place] [facility] [address] [id number], [place] [address]- 6534 10 Apr, 2009 [facility] [place] [facility] [address] [facility] [id number] [place] [address]- 7609 12 Dec, 2008 IMMUNIZATIONS No Known Immunizations SOCIAL HISTORY Never Assessed REASON FOR VISIT Controlled refill PLAN OF CARE VITAL SIGNS MEDICATIONS Medication [...]
--- OUTSIDE RECORDS SUMMARY | 2018-11-26 15:52 | XMS REPORT ---
Author Author KING FISHMAN [facility] Address [address] [place] [address] Care Team Providers Care Circulation Manager Name Role Phone KING FISHMAN Unavailable PROBLEMS Type Condition ICD9-CM Code RIW67-AM Code Onset Dates Condition Status SNOMED Code Problem Gastroesophageal reflux disease, esophagitis presence not specified K21.9 Active 373334600 Problem Lumbago with sciatica, right side M54.41 Active [id number] Problem Lumbago with sciatica, left side M54.42 Active 700955467 Problem Iron deficiency anemia due to chronic blood loss D50.0 Active 234332185 Problem Seizures R56.9 Active 71859729 Problem Cigarette nicotine dependence without complication F17.210 Active 41776844 Problem Other chronic pain G89.29 Active 62002758 Problem Chronic obstructive pulmonary disease, unspecified COPD type J44.9 Active 94653013 Problem Pain in right ankle and joints of right foot M25.571 Active 24435152097955 Problem Reactive depression F32.9 Active 50762877 Problem Mixed hyperlipidemia E78.2 Active 237828864 Problem Essential hypertension I10 Active 66792451 Problem Prediabetes R73.03 Active 144409135 Problem Acquired hypothyroidism E03.9 Active 685262978 ALLERGIES Substance Reaction Event Type Date Status Penicillin G Potassium anaphylaxis Drug Allergy May, Active Codeine Sulfate anaphylaxis Drug Allergy May, Active Aspirin hives Drug Allergy May, Active Peanut hives Non Drug Allergy May, Active ENCOUNTERS Encounter Location Date Diagnosis [facility] [address] [facility] [id number], [place] [address] Oct, [facility] [address] [facility] [id number], [place] [address] Jul, [facility] [address] [facility] [id number], [place] [address] Jun, Pain in thoracic spine M54.6 [facility] [address] [address] Jun, Iron deficiency anemia due to chronic blood loss D50.[address] [facility] [address] [address]- [address] Jun, Gastroenteritis K52.9 and Abnormal RBC indices R71.8 [facility] [address] [address]- [address] Jun, [facility] [address] [address]- [address] Jun, Chest congestion R09.[address] [facility] [address] [address]- [address] May, Pain in thoracic spine M54.6 [facility] [address] [address] May, [facility] [address] [address]- [address] May, [facility] [address] [address] May, [facility] [address] [id number] [place] [address] 71743- 5936 May, Acute non-recurrent frontal sinusitis J01.[address] [facility] [id number] [place] [address] 97946- 4470 May, [facility] [address] [address]- 3524 May, Pain in thoracic spine M54.6 [facility] [address] [address]- [address] May, [facility] [address] 72703- 6255 May, Acute nasopharyngitis J00 [facility] [id number] [place] [address] 17269- 8115 May, [facility] [id number] [place] [address] 06834- [address] May, [facility] [id number] [place] [address] 14488- 5400 Apr, [facility] [id number] [place] [address] 66759- 1154 Apr, [facility] [id number] [place] [address] 83838- 3809 Apr, [facility] [id number] [place] [address] 20644- 7734 Apr, [facility] [id number] [place] [address] 46915- 3474 Apr, Pain in right ankle and joints of right foot M25.571 [facility] [id number] [place] [address] 38396- 7274 Apr, [facility] [id number] [place] [address] 68667- 9399 18 Apr, 2018 Bronchitis J40 ; Pain in right ankle and joints of right foot M25.571 ; Other chronic pain G89.29 ; Prediabetes R73.03 ; Chronic obstructive pulmonary disease, unspecified COPD type J44.9 and Cigarette nicotine dependence without complication F17.210 [facility] [id number] [place] [address] 12292 -2351 13 Apr, 2018 Seasonal allergic rhinitis, unspecified trigger J30.2 [facility] [id number] [place] [address] 68397- 8314 08 Apr, 2018 Onychomycosis B35.1 ; Onychocryptosis L60.0 and DM 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 [facility] [id number] [place] [address] 46821- 2758 Apr, Reactive depression F32.9 ; Thoracic myofascial strain, initial encounter S29.019A and Leg cramps R25.2 [place] [id number] [place] [address] 73610- 9705 March, [place] [address] 37924- 0158 March, Type 2 diabetes mellitus with hyperglycemia E11.65 [place] [address] 49718- 9399 March, Reactive depression F32.[address] [address]- [address] March, Pain in thoracic spine M54.6 and Other chronic pain G89.[address] 7[address]35- 9108 Feb, [place] [address] 89487- 2413 Jan, Reactive depression F32.9 ; Essential hypertension I10 ; Gastroesophageal reflux disease, esophagitis presence not specified K21.9 ; Lumbago with sciatica, left side M54.42 and Lumbago with sciatica, right side M54.41 [place] [id number] [place] [address] 95069- 3819 Jan, Reactive depression F32.9 and Pharyngoesophageal dysphagia R13.14 [place] [id number] [place] [address] 78900- 4521 Jan, [address] [address]- 3047 Jan, Encounter for immunization Z23 [place] [id number] [place] [address] 37439- 3326 Jan, Onychomycosis B35.1 and DM 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 [place] [id number] [place] [address] 02506- 9514 Jan, [facility] [id number] [place] [address] 90627- 3940 Jan, Prediabetes R73.03 [facility] [id number] [place] [address] 25542- 5584 Dec, [facility] [address] 81931- 6079 Dec, Essential hypertension I10 ; Mixed hyperlipidemia E78.2 ; Acquired hypothyroidism E03.9 ; Reactive depression F32.9 and Prediabetes R73.03 [place] [address] 64365- 8837 Dec, [place] [address] [id number] [place] [address] 82112- 2095 Dec, [place] [address] 00086- 2403 Dec, DM 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 [facility] [id number] [place] [address] 63114 -4256 Dec, Bruise T14.8XXA ; Type 2 diabetes mellitus with hyperglycemia E11.65 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 [id number] [place] [address] 41159- 6908 March, Onychomycosis B35.1 and DM 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 [facility] [id number] [place] [address] 04031- 1810 Jun, [facility] [id number] [place] [address] 27543- 3058 Jun, [facility] [address] 39126- 0253 Jun, COPD with acute exacerbation 491.21 [facility] [place] [facility] [address] [id number] [place] [address]- 2449 15 Apr, 2015 [facility] [place] [facility] [address] [id number] [place] [address]- 6517 14 Feb, 2015 [facility] [place] [facility] [address] [id number] [place] [address]- 5551 Feb, [facility] [place] [facility] [address] [id number] [place] [address]- 6815 26 Jan, 2015 [facility] [place] [facility] [address] [id number] [place] [address]- 9610 Jan, [facility] [place] [facility] [address] [id number] [place] [address]- 0850 Jan, [facility] [place] [facility] [address] [facility] [id number] [place] [address]- 6220 Jan, [facility] [place] [facility] [address] [id number] [place] [address]- 8282 Jan, [facility] [place] [facility] [address] [id number] [place] [address]- 4421 Jan, [facility] [place] [facility] [address] [facility] [id number] [place] [address]- 6854 Jan, [facility] [place] [facility] [address] [facility] [id number], [place] [address]- 6186 Jan, [facility] [place] [facility] [address] [id number], [place] [address]- 6291 Jan, [facility] [place] [facility] [address] [id number] [place] [address]- 0447 Jan, [facility] [place] [facility] [address] [facility] [id number], [place] [address]- 6287 Jan, [facility] [place] [facility] [address] [facility] [id number], [place] [address]- 3144 18 Jan, 2015 [facility] [place] [facility] [address] [id number] [place] [address]- 7571 18 Jan, 2014 [facility] [place] [facility] [address] [id number] [place] [address]- 7481 16 Jan, 2014 [facility] [place] [facility] [address] [id number] [place] [address]- 0246 16 Jan, 2014 [facility] [place] [facility] [address] [id number] [place] [address]- 4172 16 Jan, 2014 [facility] [place] [facility] [address] [id number] [place] [address]- 1447 16 Jan, 2014 [facility] [place] [facility] [address] [id number] [place] [address]- 1347 15 Jan, 2014 [facility] [place] [facility] [address] [id number] [place] [address]- 9782 13 Jan, 2015 [facility] [place] [facility] [address] [id number] [place] [address]- 7712 13 Jan, 2014 [facility] [place] [facility] [address] [id number] [place] [address]- 4717 13 Jan, 2015 [facility] [place] [facility] [address] [id number] [place] [address]- 8476 13 Jan, 2015 [facility] [place] [facility] [address] [id number] [place] [address]- 0304 12 Jan, 2015 [facility] [place] [facility] [address] [id number] [place] [address]- 4383 04 Jan, 2015 [facility] [place] [facility] [address] [id number] [place] [address]- 8986 04 Jan, 2015 [facility] [place] [facility] [address] [id number] [place] [address]- 3309 24 Dec, 2014 [facility] [place] [facility] [address] [id number] [place] [address]- 5616 24 Dec, 2014 [facility] [place] [facility] [address] [id number] [place] [address]- 0418 Dec, 2014 [facility] [place] [facility] [address] [id number] [place] [address]- 2907 Dec, [facility] [place] [facility] [address] [id number] [place] [address]- 7196 Dec, 2014 [facility] [place] [facility] [address] [facility] [id number] [place] [address]- 3486 Dec, 2014 [facility] [place] [facility] [address] [id number] [place] [address]- 7195 Dec, 2014 [facility] [place] [facility] [address] [id number] [place] [address]- 6041 Dec, [facility] [place] [facility] [address] [facility] [id number] [place] [address]- 6652 Dec, 2014 [facility] [place] [facility] [address] [facility] [id number] [place] [address]- 2857 Dec, 2014 [facility] [place] [facility] [address] [facility] [id number] [place] [address]- 4939 Dec, [facility] [place] [facility] [address] [facility] [id number] [place] [address]- 8965 Dec, [facility] [place] [facility] [address] [facility] [id number] [place] [address]- 6894 Nov, [facility] [place] [facility] [address] [facility] [id number] [place] [address]- 1853 Nov, [facility] [place] [facility] [address] [facility] [id number], [place] [address]- 8212 Nov, [facility] [place] [facility] [address] [id number], [place] [address]- 8647 Nov, [facility] [place] [facility] [address] [facility] [id number], [place] [address]- 4940 Nov, [facility] [place] [facility] [address] [facility] [id number], [place] [address]- 0852 Nov, [facility] [place] [facility] [address] [id number] [place] [address]- 6265 Nov, [facility] [place] [facility] [address] [id number] [place] [address]- 6459 Nov, [facility] [place] [facility] [address] [id number] [place] [address]- 4074 Nov, [facility] [place] [facility] [address] [id number] [place] [address]- 2061 Nov, [facility] [place] [facility] [address] [id number] [place] [address]- 6365 Nov, [facility] [place] [facility] [address] [id number] [place] [address]- 6312 Nov, [facility] [place] [facility] [address] [id number] [place] [address]- 6044 Oct, [facility] [place] [facility] [address] [id number] [place] [address]- 9355 Oct, [facility] [place] [facility] [address] [id number] [place] [address]- 5232 Oct, [facility] [place] [facility] [address] [id number] [place] [address]- 4750 Oct, [facility] [place] [facility] [address] [id number] [place] [address]- 3586 Oct, [facility] [place] [facility] [address] [id number] [place] [address]- 7081 29 Oct, 2014 [facility] [place] [facility] [address] [id number] [place] [address]- 9116 Oct, [facility] [place] [facility] [address] [id number] [place] [address]- 8630 Oct, [facility] [place] [facility] [address] [id number] [place] [address]- 9243 17 Oct, 2014 [facility] [place] [facility] [address] [id number], [place] [address]- 4053 17 Oct, 2014 [facility] [place] [facility] [address] [id number] [place] [address]- 9026 16 Oct, 2014 [facility] [place] [facility] [address] [id number] [place] 8357 16 Oct, 2014 [facility] [place] [facility] [address] [id number] [place] [address]- 3743 15 Oct, 2014 [facility] [place] [facility] [address] [id number] [place] [address]- 7712 15 Oct, 2014 [facility] [place] [facility] [address] [id number] [place] [address]- 4914 Oct, [facility] [place] [facility] [address] [id number] [place] [address]- 7812 Sep, [facility] [place] [facility] [address] [id number] [place] [address]- 7428 Sep, [facility] [place] [facility] [address] [id number], [place] [address]- 6199 Sep, [facility] [place] [facility] [address] [id number], [place] [address]- 1940 Sep, [facility] [place] [facility] [address] [id number] [place] [address]- 1534 Aug, [facility] [place] [facility] [address] [id number], [place] [address]- 1381 Aug, [facility] [place] [facility] [address] [id number], [place] [address]- 7809 Aug, [facility] [place] [facility] [address] [id number], [place] [address]- 7614 Aug, [facility] [place] [facility] [address] [id number], [place] [address]- 4347 Aug, [facility] [place] [facility] [address] [id number], [place] [address]- 6452 Aug, [facility] [place] [facility] [address] [id number] [place] [address]- 7522 29 Jul, 2014 [facility] [place] [facility] [address] [id number] [place] [address]- 1836 29 Jul, 2014 [facility] [place] [facility] [address] [id number] [place] [address]- 2936 15 Jul, 2014 [facility] [place] [facility] [address] [id number] [place] [address]- 9256 15 Jul, 2014 [facility] [place] [facility] [address] [id number] [place] [address]- 9828 Jul, [facility] [place] [facility] [address] [id number] [place] [address]- 9927 Jul, [facility] [place] [facility] [address] [id number] [place] [address]- 4076 Jun, [facility] [place] [facility] [address] [id number] [place] [address]- 3259 Jun, [facility] [place] [facility] [address] [id number] [place] [address]- 5107 Jun, [facility] [place] [facility] [address] [id number] [place] [address]- 1732 Jun, [facility] [place] [facility] [address] [id number] [place] [address]- 5781 Jun, [facility] [place] [facility] [address] [id number] [place] [address]- 5959 Jun, [facility] [place] [facility] [address] [id number] [place] [address]- 6857 Jun, [facility] [place] [facility] [address] [id number] [place] [address]- 5198 May, [facility] [place] [facility] [address] [id number] [place] [address]- 7950 May, [facility] [place] [facility] [address] [id number] [place] [address]- 2205 May, [facility] [place] [facility] [address] [id number] [place] [address]- 8985 May, 2013 [facility] [place] [facility] [address] [id number] [place] [address]- 3861 May, [facility] [place] [facility] [address] [id number] [place] [address]- 7051 May, 2013 [facility] [place] [facility] [address] [id number] [place] [address]- 4543 May, 2013 [facility] [place] [facility] [address] [id number] [place] [address]- 2219 May, [facility] [place] [facility] [address] [id number] [place] [address]- 7434 May, [facility] [place] [facility] [address] [id number] [place] [address]- 0757 May, [facility] [place] [facility] [address] [id number] [place] [address]- 7156 May, [facility] [place] [facility] [address] [id number] [place] [address]- 0632 May, [facility] [place] [facility] [address] [id number] [place] [address]- 6428 Apr, [facility] [place] [facility] [address] [id number] [place] [address]- 5406 Apr, [facility] [place] [facility] [address] [id number] [place] [address]- 4964 Apr, [facility] [place] [facility] [address] [id number] [place] [address]- 4911 Apr, [facility] [place] [facility] [address] [id number] [place] [address]- 8954 Apr, [facility] [place] [facility] [address] [id number] [place] [address]- 1532 Apr, [facility] [place] [facility] [address] [id number] [place] [address]- 1194 Apr, [facility] [place] [facility] [address] [id number] [place] [address]- 1970 Apr, [facility] [place] [facility] [address] [id number] [place] [address]- 4088 Apr, [facility] [place] [facility] [address] [id number] [place] [address]- 0373 Apr, [facility] [place] [facility] [address] [id number] [place] [address]- 8386 March, [facility] [place] [facility] [address] [id number] [place] [address]- 9916 March, [facility] [place] [facility] [address] [id number] [place] [address]- 6509 March, [facility] [place] [facility] [address] [id number] [place] [address]- 8181 March, [facility] [place] [facility] [address] [id number] [place] [address]- 6412 March, [facility] [place] [facility] [address] [id number] [place] [address] March, [facility] [place] [facility] [address] [id number] [place] [address] Feb, [facility] [place] [facility] [address] [id number] [place] [address] Feb, [facility] [place] [facility] [address] [id number] [place] [address] Feb, [facility] [place] [facility] [address] [id number] [place] [address] Feb, [facility] [place] [facility] [address] [id number] [place] [address] Feb, [facility] [place] [facility] [address] [id number] [place] [address] Feb, [facility] [place] [facility] [address] [id number] [place] [address] Feb, [facility] [place] [facility] [address] [id number] [place] [address] Feb, [facility] [place] [facility] [address] [id number] [place] [address] Feb, [facility] [place] [facility] [address] [id number] [place] [address] Feb, [facility] [place] [facility] [address] [id number] [place] [address] Jan, [facility] [place] [facility] [address] [id number] [place] [address] Jan, [facility] [place] [facility] [address] [id number] [place] [address] Jan, [facility] [place] [facility] [address] [id number] [place] [address] Jan, [facility] [place] [facility] [address] [id number] [place] [address] Jan, [facility] [place] [facility] [address] [id number] [place] [address] Jan, [facility] [place] [facility] [address] [id number] [place] [address] Jan, [facility] [place] [facility] [address] [id number] [place] [address] Jan, [facility] [place] [facility] [address] [id number] [place] [address] Dec, [facility] [place] [facility] [address] [id number] [place] [address] Dec, [facility] [place] [facility] [address] [id number] [place] [address] Dec, [facility] [place] [facility] [address] [id number] [place] [address] Dec, [facility] [place] [facility] [address] [id number] [place] [address] Dec, [facility] [place] [facility] [address] [id number] [place] [address] Dec, [facility] [place] [facility] [address] [id number] [place] [address] Dec, [facility] [place] [facility] [address] [id number] [place] [address] Dec, [facility] [place] [facility] [address] [id number] [place] [address] Nov, [facility] [place] [facility] [address] [id number] [place] [address] Nov, [facility] [place] [facility] [address] [id number] [place] [address] Nov, [facility] [place] [facility] [address] [id number] [place] [address] Nov, [facility] [place] [facility] [address] [id number] [place] [address] Nov, [facility] [place] [facility] [address] [facility] [id number] [place] [address] Nov, [facility] [place] [facility] [address] [id number] [place] [address] Nov, [facility] [place] [facility] [address] [id number] [place] [address] Nov, [facility] [place] [facility] [address] [id number] [place] [address] Nov, [facility] [place] [facility] [address] [id number] [place] [address] Nov, [facility] [place] [facility] [address] [id number] [place] [address] Nov, [facility] [place] [facility] [address] [id number] [place] [address] Oct, [facility] [place] [facility] [address] [id number] [place] [address] Oct, [facility] [place] [facility] [address] [id number] [place] [address] Oct, [facility] [place] [facility] [address] [id number] [place] [address] Oct, [facility] [place] [facility] [address] [id number] [place] [address] Sep, [facility] [place] [facility] [address] [id number] [place] [address] Sep, [facility] [place] [facility] [address] [id number] [place] [address] Sep, [facility] [place] [facility] [address] [id number] [place] [address] Sep, [facility] [place] [facility] [address] [id number] [place] [address] Aug, [facility] [place] [facility] [address] [id number] [place] [address] Aug, [facility] [place] [facility] [address] [facility] [id number] [place] [address] Aug, [facility] [place] [facility] [address] [id number] [place] [address]- [address] Aug, [facility] [place] [facility] [address] [id number] [place] [address] Aug, [facility] [place] [facility] [address] [id number] [place] [address] Aug, [facility] [place] [facility] [address] [id number] [place] [address] Aug, [facility] [place] [facility] [address] [id number] [place] [address] Aug, [facility] [place] [facility] [address] [id number] [place] [address] 9824 28 Sep, 2012 [facility] [place] [facility] [address] [id number] [place] [address] 5183 27 Sep, 2012 [facility] [place] [facility] [address] [id number] [place] [address] 6408 26 Sep, 2012 [facility] [place] [facility] [address] [id number] [place] [address] 6141 24 Sep, 2012 [facility] [place] [facility] [address] [id number] [place] [address] 4025 24 Jul, 2012 [facility] [place] [facility] [address] [id number] [place] [address]- 9879 23 Jul, 2012 [facility] [place] [facility] [address] [id number] [place] [address] 3161 19 Jul, 2012 [facility] [place] [facility] [address] [id number] [place] [address] 5907 18 Sep, 2012 [facility] [place] [facility] [address] [id number] [place] [address] 6194 17 Sep, 2012 [facility] [place] [facility] [address] [id number] [place] [address]- 6719 16 Sep, 2012 [facility] [place] [facility] [address] [id number], [place] [address] 99[address] 13 Jul, 2012 [facility] [place] [facility] [address] [id number], [place] [address] 2225 13 Sep, 2012 [facility] [place] [facility] [address] [id number] [place] [address] 9209 12 Sep, 2012 [facility] [place] [facility] [address] [id number], [place] [address] 3516 11 Sep, 2012 [facility] [place] [facility] [address] [id number] [place] [address]- 7766 04 Sep, 2012 [facility] [place] [facility] [address] [id number] [place] [address] 5915 Jun, [facility] [address] [id number] [place] [address] 0899 Jun, [facility] [place] [facility] [address] [id number] [place] [address] 7226 Jun, [facility] [address] [id number] [place] [address]- 0773 May, [facility] [place] [facility] [address] [id number] [place] [address]- 0716 May, [facility] [address] [id number] [place] [address]- 6679 May, [facility] [place] [facility] [address] [id number] [place] [address]- 5093 May, [facility] [address] [id number] [place] [address]- 2895 Apr, [facility] [place] [facility] [address] [id number] [place] [address]- 0902 Apr, [facility] [place] [facility] [address] [id number] [place] [address]- 8237 Apr, [facility] [place] [facility] [address] [id number] [place] [address]- 3306 Apr, [facility] [place] [facility] [address] [id number] [place] [address]- 7132 March, [facility] [place] [facility] [address] [id number] [place] [address]- 2416 March, [facility] [place] [facility] [address] [id number] [place] [address]- 7782 March, [facility] [place] [facility] [address] [id number] [place] [address]- 1582 Feb, [facility] [place] [facility] [address] [id number] [place] [address]- 3608 Feb, [facility] [place] [facility] [address] [id number] [place] [address]- 4492 Jan, [facility] [place] [facility] [address] [id number] [place] [address]- 1514 Jan, [facility] [place] [facility] [address] [id number] [place] [address]- 2792 Jan, [facility] [place] [facility] [address] [id number] [place] [address]- 9584 Jan, [facility] [place] [facility] [address] [id number] [place] [address]- 5538 Jan, [facility] [place] [facility] [address] [id number] [place] [address]- 5603 Dec, [facility] [place] [facility] [address] [id number] [place] [address]- 6426 Dec, [facility] [place] [facility] [address] [id number] [place] [address]- 0364 Dec, [facility] [place] [facility] [address] [id number] [place] [address]- 4762 Dec, [facility] [place] [facility] [address] [id number] [place] [address]- 2113 Dec, [facility] [place] [facility] [address] [id number] [place] [address]- 4137 Dec, [facility] [place] [facility] [address] [id number] [place] [address]- 6215 Dec, [facility] [place] [facility] [address] [id number] [place] [address]- 6417 Dec, [facility] [place] [facility] [address] [id number] [place] [address]- 7658 Nov, [facility] [place] [facility] [address] [id number] [place] [address]- 0307 Nov, [facility] [place] [facility] [address] [id number] [place] [address]- 2975 Nov, [facility] [address] [id number] [place] [address]- 4106 Nov, [facility] [place] [facility] [address] [id number] [place] [address]- 1796 Nov, [facility] [address] [id number] [place] [address]- 3185 Nov, [facility] [place] [facility] [address] [id number] [place] [address]- 7143 Nov, [facility] [address] [id number] [place] [address] Oct, [facility] [place] [facility] [address] [id number] [place] [address]- 7733 Oct, [facility] [address] [id number] [place] [address]- 8188 Oct, [facility] [place] [facility] [address] [id number] [place] [address]- 1648 Oct, [facility] [address] [id number] [place] [address]- 1066 Oct, [facility] [place] [facility] [address] [id number] [place] [address]- 1113 Oct, [facility] [place] [facility] [address] [id number] [place] [address]- 9342 Oct, [facility] [place] [facility] [address] [id number] [place] [address]- 7108 Oct, [facility] [place] [facility] [address] [id number] [place] [address]- 4187 Sep, [facility] [place] [facility] [address] [id number] [place] [address]- 6295 Sep, [facility] [place] [facility] [address] [id number] [place] [address]- 0479 Sep, [facility] [place] [facility] [address] [id number] [place] [address]- 9796 Sep, [facility] [place] [facility] [address] [id number] [place] [address]- 6313 Sep, [facility] [place] [facility] [address] [id number] [place] [address]- 8355 Sep, [facility] [place] [facility] [address] [id number] [place] [address]- 0441 Sep, [facility] [place] [facility] [address] [id number] [place] [address]- 8330 Sep, [facility] [place] [facility] [address] [id number] [place] [address]- 4114 Sep, [facility] [place] [facility] [address] [id number] [place] [address]- 5941 Sep, [facility] [place] [facility] [address] [id number] [place] [address]- 3055 Sep, [facility] [place] [facility] [address] [id number] [place] [address]- 6766 Sep, [facility] [place] [facility] [address] [id number] [place] [address]- 3827 Sep, [facility] [place] [facility] [address] [id number] [place] [address]- 5796 Sep, [facility] [place] [facility] [address] [id number] [place] [address]- 3424 Sep, [facility] [place] [facility] [address] [id number] [place] [address]- 9458 Sep, [facility] [place] [facility] [address] [id number] [place] [address]- 8137 Sep, [facility] [place] [facility] [address] [id number] [place] [address]- 0869 Sep, [facility] [place] [facility] [address] [id number], [place] [address]- 4756 Sep, [facility] [place] [facility] [address] [id number] [place] Sep, [facility] [place] [facility] [address] [id number] [place] [address]- 4423 Aug, [facility] [place] [facility] [address] [facility] [id number] [place] 8935 Aug, [facility] [place] [facility] [address] [id number], [place] [address]- 0875 29 Aug, 2012 [facility] [place] [facility] [address] [id number] [place] [address]- 2959 Aug, [facility] [place] [facility] [address] [id number] [place] [address]- 0404 Aug, [facility] [place] [facility] [address] [id number], [place] [address]- 1268 Aug, [facility] [place] [facility] [address] [id number], [place] [address]- 8037 18 Aug, 2012 [facility] [place] [facility] [address] [id number], [place] [address]- 8142 17 Aug, 2012 [facility] [place] [facility] [address] [id number], [place] [address]- 5516 16 Aug, 2012 [facility] [place] [facility] [address] [id number], [place] [address]- 7205 16 Aug, 2012 [facility] [place] [facility] [address] [id number], [place] [address]- 0209 15 Aug, 2012 [facility] [place] [facility] [address] [id number], [place] [address]- 0491 09 Aug, 2012 [facility] [place] [facility] [address] [facility] [id number], [place] [address]- 2096 Aug, [facility] [place] [facility] [address] [facility] [id number], [place] [address]- 1906 Aug, [facility] [place] [facility] [address] [id number] [place] [address]- 7335 04 Aug, 2012 [facility] [address] [id number] [place] [address]- 6410 14 Jul, 2012 [facility] [place] [facility] [address] [id number] [place] [address]- 1666 10 Jul, 2012 [facility] [address] [id number] [place] [address]- 4516 31 Jun, 2012 [facility] [place] [facility] [address] [id number] [place] [address]- 3575 Jun, [facility] [address] [id number] [place] [address]- 6660 31 May, 2012 [facility] [address] [id number] [place] [address]- 3276 May, [facility] [address] [id number] [place] [address]- 9666 24 May, 2012 [facility] [address] [id number] [place] [address]- 3010 May, [facility] [address] [id number] [place] [address]- 1820 May, [facility] [address] [id number] [place] [address]- 1074 May, [facility] [place] [facility] [address] [id number] [place] [address]- 8827 Apr, [facility] [address] [id number] [place] [address]- 5362 Apr, [facility] [place] [facility] [address] [id number] [place] [address]- 0797 March, [facility] [place] [facility] [address] [id number] [place] [address]- 3636 March, [facility] [place] [facility] [address] [id number] [place] [address]- 7029 March, [facility] [address] [id number] [place] [address]- 9382 March, [facility] [place] [facility] [address] [id number] [place] [address]- 1451 March, [facility] [place] [facility] [address] [id number] [place] [address]- 1086 March, [facility] [place] [facility] [address] [id number] [place] [address]- 1322 Feb, [facility] [address] [id number] [place] [address]- 7409 Feb, [facility] [place] [facility] [address] [id number] [place] [address]- 7109 Feb, [facility] [place] [facility] [address] [id number] [place] [address]- 4110 Feb, [facility] [address] [id number] [place] [address]- 6186 Feb, [facility] [place] [facility] [address] [id number] [place] [address]- 6703 Feb, [facility] [place] [facility] [address] [id number] [place] [address]- 9565 Feb, [facility] [place] [facility] [address] [id number] [place] [address]- 0026 Feb, [facility] [place] [facility] [address] [id number], [place] [address]- 6204 Feb, [facility] [place] [facility] [address] [id number] [place] [address]- 9322 Jan, [facility] [place] [facility] [address] [id number] [place] [address]- 4684 Jan, [facility] [place] [facility] [address] [id number] [place] [address]- 6611 Jan, [facility] [place] [facility] [address] [id number], [place] [address]- 0852 22 Jan, 2012 [facility] [address] [id number] [place] [address]- 9211 21 Jan, 2012 [facility] [place] [facility] [address] [id number] [place] [address]- 4184 20 Jan, 2012 [facility] [place] [facility] [address] [id number] [place] [address]- 9776 14 Jan, 2012 [facility] [place] [facility] [address] [id number] [place] [address]- 2430 09 Jan, 2012 [facility] [place] [facility] [address] [id number] [place] [address]- 4953 09 Jan, 2012 [facility] [place] [facility] [address] [id number] [place] [address]- 4421 08 Jan, 2012 [facility] [address] [facility] [id number] [place] [address]- 2978 07 Jan, 2012 [facility] [place] [facility] [address] [id number] [place] [address]- 9729 06 Jan, 2012 [facility] [place] [facility] [address] [id number] [place] [address]- 0765 02 Jan, 2012 [facility] [place] [facility] [address] [facility] [id number] [place] [address]- 6988 02 Jan, 2012 [facility] [place] [facility] [address] [id number] [place] [address]- 5219 28 Dec, 2011 [facility] [place] [facility] [address] [id number] [place] [address]- 4273 27 Dec, 2011 [facility] [place] [facility] [address] [id number] [place] [address]- 1956 25 Dec, 2011 [facility] [place] [facility] [address] [id number] [place] [address]- 9371 23 Dec, 2011 [facility] [place] [facility] [address] [id number] [place] [address]- 3450 16 Dec, 2011 [facility] [place] [facility] [address] [id number] [place] [address]- 1649 08 Dec, 2011 [facility] [place] [facility] [address] [id number] [place] [address]- 9626 Dec, [facility] [place] [facility] [address] [id number] [place] [address]- 2456 Dec, [facility] [place] [facility] [address] [id number] [place] [address]- 7326 Dec, [facility] [place] [facility] [address] [id number] [place] [address]- 7357 Nov, [facility] [place] [facility] [address] [id number] [place] [address]- 2399 Nov, [facility] [place] [facility] [address] [id number] [place] [address]- 9794 Nov, [facility] [place] [facility] [address] [id number] [place] [address]- 5926 Nov, [facility] [place] [facility] [address] [id number] [place] [address]- 6782 Oct, [facility] [place] [facility] [address] [id number] [place] [address]- 7296 Oct, [facility] [place] [facility] [address] [id number], [place] [address]- 0188 Oct, [facility] [place] [facility] [address] [id number], [place] [address]- 6926 Oct, [facility] [place] [facility] [address] [id number] [place] [address] 2546 13 Oct, 2011 [facility] [place] [facility] [address] [id number] [place] [address]- 4366 Oct, [facility] [place] [facility] [address] [id number], [place] [address]- 2119 05 Oct, 2011 [facility] [place] [facility] [address] [id number], [place] [address]- 9112 Sep, [facility] [place] [facility] [address] [id number] [place] [address]- 3447 Sep, [facility] [place] [facility] [address] [id number] [place] [address]- 9126 Sep, [facility] [place] [facility] [address] [facility] [id number] [place] [address]- 2021 Sep, [facility] [place] [facility] [address] [id number] [place] [address]- 7541 Sep, [facility] [place] [facility] [address] [id number] [place] [address], [place] [address]- 1615 Sep, [facility] [place] [facility] [address] [id number] [place] [address]- 1159 Sep, [facility] [place] [facility] [address] [id number] [place] [address]- 6925 Sep, [facility] [place] [facility] [address] [id number] [place] [address]- 8049 Sep, [facility] [place] [facility] [address] [facility] [id number] [place] [address]- 3541 Aug, [facility] [place] [facility] [address] [facility] [id number] [place] [address]- 5195 Aug, [facility] [place] [facility] [address] [id number], [place] [address]- 6365 Aug, [facility] [place] [facility] [address] [id number], [place] [address]- 6598 May, [facility] [place] [facility] [address] [id number] [place] [address]- 0882 Nov, [facility] [place] [facility] [address] [facility] [id number] [place] [address]- 0557 Oct, [facility] [place] [facility] [address] [facility] [id number] [place] [address]- 3567 30 Oct, 2010 [facility] [place] [facility] [address] [id number] [place] [address]- 0861 30 Oct, 2010 [facility] [place] [facility] [address] [id number] [place] [address]- 5366 Oct, [facility] [place] [facility] [address] [id number] [place] [address]- 2546 Oct, [facility] [place] [facility] [address] [id number] [place] [address]- 4726 03 Sep, 2010 [facility] [place] [facility] [address] [id number] [place] [address] Sep, [facility] [place] [facility] [address] [id number] [place] [address] 14 Jul, 2010 [facility] [place] [facility] [address] [id number] [place] [address] 31 Oct, 2009 [facility] [place] [facility] [address] [id number] [place] [address] Oct, [facility] [place] [facility] [address] [id number] [place] [address] Oct, [facility] [place] [facility] [address] [id number] [place] [address] Oct, [facility] [place] [facility] [address] [id number] [place] [address] 30 Sep, 2009 [facility] [place] [facility] [address] [id number] [place] [address] Sep, [facility] [place] [facility] [address] [id number] [place] [address] Sep, [facility] [place] [facility] [address] [id number] [place] [address] 04 Sep, 2009 [facility] [place] [facility] [address] [id number] [place] [address] 03 Sep, 2009 [facility] [place] [facility] [address] [id number] [place] [address] Jul, [facility] [address] [facility] [id number] [place] [address] Apr, [facility] [address] [facility] [id number], [place] [address] Dec, IMMUNIZATIONS No Known Immunizations SOCIAL HISTORY Never Assessed REASON FOR VISIT Congestion, PT reports about 3 days ago she started having diarrhea along with congestion. PT notes she has a cough along with loss of appetite. Kemal ABAD , PT is interested in a shingles vaccine. Kemal ABAD PLAN OF CARE Activity Details Follow Up Reg appt Reason: VITAL SIGNS Height 67 in 2018-06-10 Weight 197.5 lbs 2018-06-10 Temperature 97.5 degrees Fahrenheit 2018-06-10 Heart Rate 61 bpm 2018-06-10 Respiratory Rate 20 2018-06-10 Oximetry on room air:97 % 2018-06-10 BMI 30.93 kg/m2 2018-06-10 Blood pressure systolic 118 mmHg 2018-06-10 Blood pressure diastolic 72 mmHg 2018-06-10 MEDICATIONS Medication Instructions Dosage Frequency Start Date End Date Duration Status Tramadol HCl 50 mg Orally 3 times a day 1 tablet as needed 8h March, Active ProAir HFA 90 mcg/actuation inhale 2 puffs by Inhalation route every 4 hours as needed PRN shortness of breath/cough March, Active Lisinopril 5 MG Orally Once a day 1 tablet 24h Active Amlodipine Besylate 5 MG Orally Once a day 1 tablet 24h Active Atorvastatin Calcium 40 MG TAKE ONE TABLET BY MOUTH DAILY 90 Active Test strips Test Strips subcutaneously 2 times a day, accucheck christiano 1 test strip Dec, Active Naprosyn 500 mg Orally 2 times a day 1 tablet with food or milk as needed 12h 30 Active Levothyroxine Sodium 50 MCG TAKE ONE TABLET BY MOUTH DAILY 90 Active Protonix 40 MG Orally Once a day 1 tablet 24h Jan, 30 day(s) Active Prozac 40 mg Orally Once a day 1 capsule 24h 30 Active Flonase 50 MCG/ACT Nasally twice a day 1 spray in each nostril 12h 13 Apr, 2018 30 day(s) Active Cyclobenzaprine HCl 10 mg Orally Three times a day 1 tablet as needed 8h 10 Active Gabapentin 600 MG Orally Once a day 1 capsule before bedtime 24h Active Metformin HCl 500 MG Orally Twice a day 1 tablet with meals 12h Active PredniSONE 20 mg Orally Once a day 1 tablet 24h May, May, 05 days Active Trazodone HCl 100 mg Orally Once a day 1 tablet at bedtime 24h Apr, 30 day(s) Active Gabapentin 300 MG TAKE TWO CAPSULES BY MOUTH THREE TIMES A DAY 90 Active RESULTS No Results PROCEDURES No Known procedures INSTRUCTIONS MEDICATIONS ADMINISTERED No Known Medications MEDICAL (GENERAL) HISTORY Type Description Date Medical History hypertension Medical History hyperlipidemia Medical History diabetes type II Medical History COPD Medical History asthma Surgical History hysterectomy Surgical History arthritis surgery Hospitalization History surgeries
--- OUTSIDE RECORDS SUMMARY | 2018-11-26 15:53 | XMS REPORT ---
Author Author KING FISHMAN Organization [facility] Address [address] [place] [address] Care Team Providers Care Atomic Process Engineer Name Role Phone KING FISHMAN Unavailable PROBLEMS Type Condition ICD9-CM Code HDZ10-PW Code Onset Dates Condition Status SNOMED Code Problem Gastroesophageal reflux disease, esophagitis presence not specified K21.9 Active 303989864 Problem Lumbago with sciatica, right side M54.41 Active [id number] Problem Lumbago with sciatica, left side M54.42 Active 701710448 Problem Iron deficiency anemia due to chronic blood loss D50.0 Active 089338945 Problem Seizures R56.9 Active 90005145 Problem Cigarette nicotine dependence without complication F17.210 Active 50691043 Problem Other chronic pain G89.29 Active 88646870 Problem Chronic obstructive pulmonary disease, unspecified COPD type J44.9 Active 50970713 Problem Pain in right ankle and joints of right foot M25.571 Active 03660341103022 Problem Reactive depression F32.9 Active 50279217 Problem Mixed hyperlipidemia E78.2 Active 935042327 Problem Essential hypertension I10 Active 24354091 Problem Prediabetes R73.03 Active 832312106 Problem Acquired hypothyroidism E03.9 Active 440591589 ALLERGIES No Information ENCOUNTERS Encounter Location Date Diagnosis [facility] [id number] [address] Jul, [address] [id number] [place] [address]37- 5690 Jun, Pain in thoracic spine M54.6 [place] [id number] [place] [address] 91064- 8117 Jun, Iron deficiency anemia due to chronic blood loss D50.0 and Hematochezia K92.1 [place] [id number] [place] [address] 98948- 0874 Jun, Gastroenteritis K52.9 and Abnormal RBC indices R71.8 [facility] [address] [address]- [address] Jun, [facility] [address] [address] 2541 Jun, Chest congestion R09.89 and Seizures R56.9 [facility] [address] 04642- 0885 May, Pain in thoracic spine M54.6 [facility] [address] 60467- 2396 May, [facility] [address] 05475- 7542 May, [facility] [address] 9[address]86- 1619 May, [facility] [address] 67521- 8896 May, Acute non-recurrent frontal sinusitis J01.10 and Dermatitis L30.9 [facility] [id number] [place] [address] 05109- 0344 May, [facility] [id number] [place] [address] 00061- 6108 May, Pain in thoracic spine M54.6 [facility] [id number] [place] [address] 46773- 2546 May, [facility] [address] 79749- 5509 May, Acute nasopharyngitis J00 [facility] [id number] [place] [address] 88978- 2546 May, [facility] [address] 92158- 3947 May, [facility] [address], [place] [address] 5[address] Apr, [facility] [id number] [place] [address] 59551- 9111 Apr, [facility] [id number] [place] [address] 62725- 7999 Apr, [facility] [id number] [place] [address] 78592- 5428 Apr, [facility] [id number] [place] [address] 14957- 6364 Apr, Pain in right ankle and joints of right foot M25.571 [place] [id number] [place] [address] 47213- 7508 Apr, [place] [id number] [place] [address] 41962- 9495 Apr, Bronchitis J40 ; Pain in right ankle and joints of right foot M25.571 ; Other chronic pain G89.29 ; Prediabetes R73.03 ; Chronic obstructive pulmonary disease, unspecified COPD type J44.9 and Cigarette nicotine dependence without complication F17.210 [facility] [id number] [place] [address] 62037 -7011 Apr, Seasonal allergic rhinitis, unspecified trigger J30.2 [place] [id number] [place] [address] 09776- 2769 Apr, Onychomycosis B35.1 ; Onychocryptosis L60.0 and DM 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 [place] [id number] [place] [address] 11703- 3683 Apr, Reactive depression F32.9 ; Thoracic myofascial strain, initial encounter S29.019A and Leg cramps R25.2 [facility] [id number] [place] [address] 84615- 3883 March, [place] [id number] [place] [address] 01449- 2794 March, Type 2 diabetes mellitus with hyperglycemia E11.65 [place] [address] 02597- 9743 March, Reactive depression F32.9 [place] [address] 25328- 1539 March, Pain in thoracic spine M54.6 and Other chronic pain G89.29 [place] [address] 40754- 0738 Feb, [place] [address] 93376- 5719 Jan, Reactive depression F32.9 ; Essential hypertension I10 ; Gastroesophageal reflux disease, esophagitis presence not specified K21.9 ; Lumbago with sciatica, left side M54.42 and Lumbago with sciatica, right side M54.41 [place] [address] 56625- 7335 Jan, Reactive depression F32.9 and Pharyngoesophageal dysphagia R13.14 [place] [address] 21894- 4987 Jan, [address] [address]- 4881 Jan, Encounter for immunization Z23 [place] [address] 21969- 9171 Jan, Onychomycosis B35.1 and DM 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 [place] [address] 23946- 3523 Jan, [address] 18701- 8281 Jan, Prediabetes R73.03 [place] [address] 86547- 2702 Dec, [facility] [id number] [place] [address] 27663- 4828 Dec, Essential hypertension I10 ; Mixed hyperlipidemia E78.2 ; Acquired hypothyroidism E03.9 ; Reactive depression F32.9 and Prediabetes R73.03 [facility] [id number] [place] [address] 87760- 2661 Dec, [facility] [id number] [place] [address] 07766- 2854 Dec, [facility] [id number] [place] [address] 22317- 1482 Dec, DM 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 [facility] IN [facility] [id number] [place] [address] 86542 -2828 Dec, Bruise T14.8XXA ; Type 2 diabetes mellitus with hyperglycemia E11.65 and [facility] current use of insulin Z79.4 [place] [id number] [place] [address] 12338- 2065 Oct, [place] [id number] [place] [address] 82073- 1101 March, Onychomycosis B35.1 and DM 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 [facility] [id number] [place] [address] 99587- 1633 Jun, [facility] [id number] [place] [address] 53225- 3761 Jun, [facility] [id number] [place] [address] 63903- 5338 Jun, COPD with acute exacerbation 491.21 [facility] [id number] [place] [address] 16123- 5562 Apr, [facility] [id number] [place] [address] 40030- 8609 Feb, [facility] [place] [facility] [address] [id number] [place] [address]- 7091 13 Feb, 2015 [facility] [place] [facility] [address] [id number] [place] [address]- 9176 26 Jan, 2015 [facility] [place] [facility] [address] [id number] [place] [address]- 0428 Jan, [facility] [place] [facility] [address] [id number] [place] [address]- 7251 Jan, [facility] [place] [facility] [address] [id number] [place] [address]- 7539 Jan, [facility] [place] [facility] [address] [id number] [place] [address]- 4775 24 Jan, 2015 [facility] [place] [facility] [address] [id number] [place] [address]- 6311 Jan, [facility] [place] [facility] [address] [id number] [place] [address]- 0330 Jan, [facility] [place] [facility] [address] [id number] [place] [address]- 8764 Jan, [facility] [place] [facility] [address] [id number] [place] [address]- 5542 23 Jan, 2015 [facility] [place] [facility] [address] [id number] [place] [address]- 4235 19 Jan, 2015 [facility] [place] [facility] [address] [id number] [place] [address]- 2721 19 Jan, 2015 [facility] [place] [facility] [address] [id number] [place] [address]- 9474 18 Jan, 2015 [facility] [place] [facility] [address] [id number] [place] [address]- 9110 18 Jan, 2015 [facility] [place] [facility] [address] [id number] [place] [address]- 5019 16 Jan, 2015 [facility] [place] [facility] [address] [id number] [place] [address]- 6248 16 Jan, 2015 [facility] [place] [facility] [address] [id number] [place] [address]- 2011 16 Jan, 2015 [facility] [place] [facility] [address] [id number] [place] [address]- 2157 16 Jan, 2015 [facility] [place] [facility] [address] [id number] [place] [address]- 3682 15 Jan, 2015 [facility] [place] [facility] [address] [id number] [place] [address]- 8833 13 Jan, 2015 [facility] [place] [facility] [address] [id number] [place] [address]- 7324 13 Jan, 2015 [facility] [place] [facility] [address] [id number] [place] [address]- 7449 13 Jan, 2015 [facility] [place] [facility] [address] [id number] [place] [address]- 8515 13 Jan, 2015 [facility] [place] [facility] [address] [id number] [place] [address]- 8761 12 Jan, 2015 [facility] [place] [facility] [address] [id number] [place] [address]- 8156 04 Jan, 2015 [facility] [place] [facility] [address] [id number] [place] [address]- 5788 04 Jan, 2015 [facility] [place] [facility] [address] [id number] [place] [address]- 5691 24 Dec, 2014 [facility] [place] [facility] [address] [id number] [place] [address]- 4148 Dec, [facility] [place] [facility] [address] [id number] [place] [address]- 6638 Dec, [facility] [place] [facility] [address] [id number] [place] [address]- 2449 Dec, [facility] [place] [facility] [address] [id number] [place] [address]- 8786 23 Dec, 2014 [facility] [place] [facility] [address] [id number] [place] [address]- 0825 Dec, 2014 [facility] [place] [facility] [address] [id number] [place] [address]- 6874 Dec, 2014 [facility] [place] [facility] [address] [id number] [place] [address]- 1100 Dec, 2014 [facility] [place] [facility] [address] [id number] [place] [address]- 4918 Dec, 2014 [facility] [place] [facility] [address] [id number] [place] [address]- 5882 Dec, 2014 [facility] [place] [facility] [address] [id number] [place] [address]- 5928 Dec, 2014 [facility] [place] [facility] [address] [id number] [place] [address]- 6248 Dec, [facility] [place] [facility] [address] [id number] [address]- 5445 Nov, [facility] [place] [facility] [address] [id number] [place] [address]- 4156 Nov, [facility] [place] [facility] [address] [id number], [place] [address]- 6307 Nov, [facility] [place] [facility] [address] [id number], [place] [address]- 4406 Nov, [facility] [place] [facility] [address] [id number], [place] [address]- 8050 Nov, [facility] [place] [facility] [address] [id number], [place] [address]- 1804 Nov, [facility] [place] [facility] [address] [id number], [place] [address]- 0650 Nov, [facility] [place] [facility] [address] [id number], [place] [address]- 8325 15 Nov, 2014 [facility] [place] [facility] [address] [id number], [place] [address]- 6207 Nov, [facility] [address] [id number] [place] [address]- 5840 Nov, [facility] [place] [facility] [address] [id number] [place] [address]- 2011 Nov, [facility] [place] [facility] [address] [facility] [id number] [place] [address]- 1919 Nov, [facility] [place] [facility] [address] [id number] [place] [address]- 0145 Oct, [facility] [place] [facility] [address] [id number] [place] [address]- 1081 Oct, [facility] [place] [facility] [address] [id number] [place] [address]- 8849 Oct, [facility] [address] [id number] [place] [address]- 3075 Oct, [facility] [place] [facility] [address] [id number] [place] [address]- 8843 Oct, [facility] [place] [facility] [address] [id number] [place] [address]- 6749 Oct, [facility] [place] [facility] [address] [facility] [id number] [place] [address]- 6881 Oct, [facility] [place] [facility] [address] [id number] [place] [address]- 2899 Oct, [facility] [place] [facility] [address] [id number] [place] [address]- 1574 Oct, [facility] [place] [facility] [address] [id number] [place] [address]- 1327 Oct, [facility] [place] [facility] [address] [id number] [place] [address]- 5177 16 Oct, 2014 [facility] [place] [facility] [address] [id number] [place] [address]- 9011 16 Oct, 2014 [facility] [place] [facility] [address] [id number] [place] [address]- 1872 15 Oct, 2014 [facility] [place] [facility] [address] [id number] [place] 5945 Oct, [facility] [place] [facility] [address] [id number] [place] [address]- 5099 Oct, [facility] [place] [facility] [address] [id number] [place] 0568 Sep, [facility] [place] [facility] [address] [id number] [place] [address]- 4596 Sep, [facility] [place] [facility] [address] [id number] [place] [address]- 7083 Sep, [facility] [place] [facility] [address] [id number] [place] [address]- 3576 Sep, [facility] [place] [facility] [address] [id number] [place] [address]- 0726 Aug, [facility] [place] [facility] [address] [id number] [place] [address]- 6410 Aug, [facility] [place] [facility] [address] [id number] [place] [address]- 1844 Aug, [facility] [place] [facility] [address] [id number] [place] [address]- 7587 Aug, [facility] [place] [facility] [address] [id number] [place] [address]- 4102 Aug, [facility] [place] [facility] [address] [id number] [place] [address]- 8127 Aug, [facility] [place] [facility] [address] [id number] [place] [address]- 0303 Jul, [facility] [place] [facility] [address] [id number] [place] [address]- 6161 29 Jul, 2014 [facility] [place] [facility] [address] [id number] [place] [address]- 2238 Jul, [facility] [place] [facility] [address] [id number] [place] [address]- 7074 Jul, [facility] [place] [facility] [address] [id number] [place] [address]- 7479 Jul, [facility] [place] [facility] [address] [id number] [place] [address]- 4647 Jul, [facility] [place] [facility] [address] [id number] [place] [address]- 2973 Jun, [facility] [place] [facility] [address] [id number] [place] [address]- 8242 Jun, [facility] [place] [facility] [address] [id number] [place] [address]- 8988 Jun, [facility] [place] [facility] [address] [id number] [place] [address]- 1302 Jun, [facility] [place] [facility] [address] [id number] [place] [address]- 3657 Jun, [facility] [place] [facility] [address] [id number] [place] [address]- 0092 Jun, [facility] [place] [facility] [address] [id number] [place] [address]- 8002 Jun, [facility] [place] [facility] [address] [id number] [place] [address]- 1255 May, [facility] [place] [facility] [address] [id number] [place] [address]- 2123 May, [facility] [place] [facility] [address] [id number] [place] [address]- 9676 May, [facility] [place] [facility] [address] [id number] [place] [address]- 6028 May, [facility] [place] [facility] [address] [id number] [place] [address]- 5364 May, [facility] [place] [facility] [address] [id number] [place] [address]- 6960 May, 2013 [facility] [place] [facility] [address] [id number] [place] [address]- 2195 May, 2013 [facility] [place] [facility] [address] [id number] [place] [address]- 2835 May, 2013 [facility] [place] [facility] [address] [id number] [place] [address]- 6848 May, 2013 [facility] [place] [facility] [address] [id number] [place] [address]- 8769 May, 2013 [facility] [place] [facility] [address] [id number] [place] [address]- 9735 May, [facility] [place] [facility] [address] [id number] [place] [address]- 0427 May, [facility] [place] [facility] [address] [id number] [place] [address]- 3255 Apr, [facility] [place] [facility] [address] [id number] [place] [address]- 4717 Apr, [facility] [place] [facility] [address] [id number] [place] [address]- 6082 Apr, [facility] [place] [facility] [address] [id number] [place] [address]- 0330 Apr, [facility] [place] [facility] [address] [id number] [place] [address]- 9443 Apr, [facility] [place] [facility] [address] [id number] [place] [address]- 7133 Apr, [facility] [place] [facility] [address] [id number] [place] [address]- 2466 Apr, [facility] [place] [facility] [address] [id number] [place] [address]- 3243 Apr, [facility] [place] [facility] [address] [id number] [place] [address]- 2783 Apr, [facility] [place] [facility] [address] [id number] [place] [address]- 6813 Apr, [facility] [place] [facility] [address] [id number] [place] [address]- 7392 March, [facility] [place] [facility] [address] [id number] [place] [address]- 5904 March, [facility] [place] [facility] [address] [id number] [place] [address]- 9858 March, [facility] [place] [facility] [address] [id number] [place] [address]- 4987 March, [facility] [place] [facility] [address] [id number] [place] [address]- 5811 March, [facility] [place] [facility] [address] [id number] [place] [address]- 4475 March, [facility] [place] [facility] [address] [id number] [place] [address]- 5010 Feb, [facility] [place] [facility] [address] [id number] [place] [address]- 2791 Feb, [facility] [place] [facility] [address] [id number] [place] [address]- 5184 Feb, [facility] [place] [facility] [address] [id number] [place] [address]- 9726 Feb, [facility] [place] [facility] [address] [id number] [place] [address]- 5634 Feb, [facility] [place] [facility] [address] [id number] [place] [address]- 9855 Feb, [facility] [place] [facility] [address] [id number] [place] [address]- 0408 Feb, [facility] [place] [facility] [address] [id number] [place] [address] Feb, [facility] [place] [facility] [address] [id number] [place] [address] Feb, [facility] [place] [facility] [address] [id number] [place] [address] Feb, [facility] [place] [facility] [address] [id number] [place] [address] Jan, [facility] [place] [facility] [address] [id number] [place] [address] Jan, [facility] [place] [facility] [address] [id number] [place] [address] Jan, [facility] [place] [facility] [address] [id number] [place] [address] Jan, [facility] [place] [facility] [address] [id number] [place] [address] Jan, [facility] [place] [facility] [address] [facility] [id number] [place] [address] Jan, [facility] [place] [facility] [address] [id number] [place] [address] Jan, [facility] [place] [facility] [address] [id number] [place] [address] Jan, [facility] [place] [facility] [address] [facility] [id number] [place] [address] Dec, [facility] [place] [facility] [address] [id number] [place] [address] Dec, [facility] [place] [facility] [address] [id number] [place] [address] Dec, [facility] [place] [facility] [address] [id number] [place] [address] Dec, [facility] [place] [facility] [address] [id number] [place] [address] Dec, [facility] [place] [facility] [address] [facility] [id number] [place] [address] Dec, [facility] [place] [facility] [address] [id number] [place] [address] Dec, [facility] [place] [facility] [address] [id number] [place] [address] Dec, [facility] [place] [facility] [address] [id number] [place] [address] Nov, [facility] [place] [facility] [address] [id number] [place] [address] Nov, [facility] [place] [facility] [address] [id number] [place] [address]- 7693 Nov, [facility] [place] [facility] [address] [id number] [place] [address] Nov, [facility] [place] [facility] [address] [id number] [place] [address] Nov, [facility] [place] [facility] [address] [id number] [place] [address]- [address] Nov, [facility] [place] [facility] [address] [id number] [place] [address] Nov, [facility] [place] [facility] [address] [id number] [place] [address] Nov, [facility] [place] [facility] [address] [id number] [place] [address] Nov, [facility] [place] [facility] [address] [id number] [place] [address] Nov, [facility] [place] [facility] [address] [id number] [place] [address]169 Nov, [facility] [place] [facility] [address] [id number] [place] [address] Oct, [facility] [place] [facility] [address] [id number] [place] [address]574 Oct, [facility] [place] [facility] [address] [id number] [place] [address] 228[address] Oct, [facility] [place] [facility] [address] [id number] [place] [address] Oct, [facility] [place] [facility] [address] [id number] [place] [address] Sep, [facility] [place] [facility] [address] [id number] [place] [address] Sep, [facility] [place] [facility] [address] [id number] [place] [address] Sep, [facility] [place] [facility] [address] [id number] [place] [address]- [address] Sep, [facility] [place] [facility] [address] [id number] [place] [address] Aug, [facility] [place] [facility] [address] [id number] [place] [address] Aug, [facility] [place] [facility] [address] [id number] [place] [address] Aug, [facility] [place] [facility] [address] [id number] [place] [address]- [address]347 Aug, [facility] [place] [facility] [address] [id number] [place] [address]- 4757 Aug, [facility] [place] [facility] [address] [id number] [address] Aug, [facility] [place] [facility] [address] [id number], [place] [address] Aug, [facility] [place] [facility] [address] [id number] [place] [address] Aug, [facility] [place] [facility] [address] [id number], [place] [address] Jul, [facility] [place] [facility] [address] [id number] [place] [address] 72[address] Jul, [facility] [place] [facility] [address] [id number] [place] [address] 2542 26 Sep, 2012 [facility] [address] [id number] [place] [address] 2546 24 Sep, 2012 [facility] [address] [id number] [place] [address] 2546 24 Jul, 2012 [facility] [address] [id number] [place] [address] 2546 23 Sep, 2012 [facility] [address] [id number] [place] [address]- [address] 19 Sep, 2012 [facility] [address] [id number] [place] [address]- [address] 18 Jul, 2012 [facility] [address] [id number] [place] [address] 17 Jul, 2012 [facility] [address] [id number] [place] [address]- [address] 16 Jul, 2012 [facility] [address] [id number] [place] [address] 13 Jul, 2012 [facility] [address] [id number] [place] [address] 2549 13 Jul, 2012 [facility] [address] [id number] [place] [address] 1815 12 Jul, 2012 [facility] [address] [id number] [place] [address] 2541 11 Jul, 2012 [facility] [address] [id number] [place] [address]- 254 04 Jul, 2012 [facility] [place] [facility] [address] [id number] [place] [address] 1657 30 Jun, 2013 [facility] [place] [facility] [address] [id number] [place] [address] 2541 Jun, [facility] [address] [id number] [place] [address]- 8018 Jun, [facility] [address] [id number] [place] [address] 0602 May, [facility] [place] [facility] [address] [id number] [place] [address]- 2474 May, [facility] [place] [facility] [address] [id number] [place] [address]- 4059 May, [facility] [place] [facility] [address] [id number] [place] [address]- 4630 May, [facility] [place] [facility] [address] [id number] [place] [address]- 0288 Apr, [facility] [place] [facility] [address] [id number] [place] [address]- 9300 Apr, [facility] [place] [facility] [address] [id number] [place] [address]- 2079 Apr, [facility] [place] [facility] [address] [id number] [place] [address]- 7184 Apr, [facility] [place] [facility] [address] [id number] [place] [address]- 2065 March, [facility] [place] [facility] [address] [id number] [place] [address]- 8232 March, [facility] [place] [facility] [address] [id number] [place] [address]- 8415 March, [facility] [place] [facility] [address] [id number] [place] [address]- 0603 Feb, [facility] [place] [facility] [address] [id number] [place] [address]- 5819 Feb, [facility] [place] [facility] [address] [id number] [place] [address]- 6876 Jan, [facility] [place] [facility] [address] [id number] [place] [address]- 0581 Jan, [facility] [place] [facility] [address] [id number], [place] [address] 7[address] Jan, [facility] [address] [id number] [place] [address]- 2718 Jan, [facility] [address] [id number] [place] [address]- 6096 Jan, [facility] [address] [id number] [place] [address]- 9526 Dec, [facility] [address] [id number] [place] [address]- 5400 Dec, [facility] [address] [id number] [place] [address]- 9987 Dec, [facility] [address] [id number] [place] [address]- 0366 Dec, [facility] [address] [id number] [place] [address]- 1190 Dec, [facility] [address] [id number] [place] [address]- 9400 Dec, [facility] [address] [id number] [place] [place] [address]- 1412 Dec, [facility] [address] [facility] [id number] [place] [address]- 8215 Dec, [facility] [address] [id number] [place] [address]- 4942 Nov, [facility] [address] [id number] [place] [address] 2542 Nov, [facility] [place] [facility] [address] [id number] [place] [address]- 3092 Nov, [facility] [address] [id number] [place] [address]- 1375 Nov, [facility] [address] [facility] [id number] [place] [address]- 1170 Nov, [facility] [place] [facility] [address] [id number] [place] [address]- 5856 Nov, [facility] [place] [facility] [address] [id number] [place] [address]- 9638 Nov, [facility] [place] [facility] [address] [id number] [place] [address]- 3839 Oct, [facility] [place] [facility] [address] [id number] [place] [address]- 3174 Oct, [facility] [place] [facility] [address] [id number] [place] [address]- 6809 Oct, [facility] [place] [facility] [address] [id number] [place] [address]- 6539 Oct, [facility] [place] [facility] [address] [id number] [place] [address]- 9342 Oct, [facility] [place] [facility] [address] [id number] [place] [address]- 9060 Oct, [facility] [place] [facility] [address] [id number] [place] [address]- 7794 Oct, [facility] [place] [facility] [address] [id number] [place] [address]- 6493 Oct, [facility] [place] [facility] [address] [id number], [place] [address] 4201 Sep, [facility] [place] [facility] [address] [id number], [place] [address]- 4456 Sep, [facility] [place] [facility] [address] [id number] [place] [address]- 7867 Sep, [facility] [place] [facility] [address] [id number] [place] [address]- 6687 Sep, [facility] [place] [facility] [address] [id number] [place] [address]- 5087 Sep, [facility] [place] [facility] [address] [id number], [place] [address] 4992 Sep, [facility] [place] [facility] [address] [id number] [place] [address]- 2831 Sep, [facility] [place] [facility] [address] [id number] [place] [address]- 5485 Sep, [facility] [place] [facility] [address] [facility] [id number] [place] [address]- 5772 Sep, [facility] [place] [facility] [address] [id number] [place] [address]- 9699 Sep, [facility] [place] [facility] [address] [facility] [id number] [place] [address], [place] [address]- 7221 Sep, [facility] [place] [facility] [address] [facility] [id number] [place] [address]- 7296 Sep, [facility] [place] [facility] [id number], [place] [address] 2723 Sep, [facility] [place] [facility] [address] [facility] [id number] [place] [address]- 6466 Sep, [facility] [place] [facility] [address] [id number] [place] [place] [address]- 5740 Sep, [facility] [place] [facility] [address] [id number] [place] [place] [address]- 4425 Sep, [facility] [place] [facility] [address] [facility] [id number], [place] [address]- 9890 Sep, [facility] [place] [facility] [address] [facility] [id number], [place] [address]- 3591 Sep, [facility] [place] [facility] [address] [facility] [id number] [place] [address]- 2537 Sep, [facility] [place] [facility] [address] [facility] [id number] [place] [address]- 8220 Sep, [facility] [place] [facility] [address] [id number] [place] [place] [address]- 7274 Aug, [facility] [place] [facility] [address] [id number] [place] [address]- 4360 31 Aug, 2011 [facility] [place] [facility] [address] [id number] [place] [address]- 5347 29 Aug, 2011 [facility] [place] [facility] [address] [id number] [place] [address]- 5273 27 Aug, 2011 [facility] [place] [facility] [address] [id number] [place] [address]- 7692 27 Aug, 2011 [facility] [place] [facility] [address] [id number] [place] [address]- 2883 18 Aug, 2011 [facility] [place] [facility] [address] [id number] [place] [address]- 4636 18 Aug, 2012 [facility] [place] [facility] [address] [id number] [place] [address]- 7553 17 Aug, 2012 [facility] [place] [facility] [address] [id number] [place] [address]- 1253 16 Aug, 2012 [facility] [place] [facility] [address] [id number] [place] [address]- 0566 16 Aug, 2012 [facility] [place] [facility] [address] [id number] [place] [address]- 4697 15 Aug, 2012 [facility] [place] [facility] [address] [id number] [place] [address]- 5393 09 Aug, 2012 [facility] [place] [facility] [address] [id number] [place] [address]- 9980 05 Aug, 2012 [facility] [place] [facility] [address] [id number] [place] [address]- 2096 05 Aug, 2012 [facility] [place] [facility] [address] [id number] [place] [address]- 2650 04 Aug, 2012 [facility] [place] [facility] [address] [id number] [place] [address]- 1645 14 Jul, 2012 [facility] [place] [facility] [address] [id number] [place] [address]- 1962 Jul, [facility] [place] [facility] [address] [id number] [place] [address]- 8206 Jun, [facility] [place] [facility] [address] [id number] [place] [address]- 9318 Jun, [facility] [place] [facility] [address] [id number] [place] [address]- 6479 May, [facility] [place] [facility] [address] [id number] [place] [address]- 4613 May, [facility] [place] [facility] [address] [id number] [place] [address]- 7020 May, [facility] [place] [facility] [address] [id number] [place] [address]- 3215 May, [facility] [place] [facility] [address] [id number] [place] [address]- 6869 May, [facility] [place] [facility] [address] [id number] [place] [address]- 4935 May, [facility] [place] [facility] [address] [id number] [place] [address]- 2837 Apr, [facility] [place] [facility] [address] [id number] [place] [address]- 2010 Apr, [facility] [place] [facility] [address] [id number] [place] [address]- 8967 March, [facility] [place] [facility] [address] [id number] [place] [address]- 8254 March, [facility] [place] [facility] [address] [id number] [place] [address]- 8658 March, [facility] [place] [facility] [address] [id number] [place] [address]- 3854 March, [facility] [place] [facility] [address] [id number] [place] [address]- 1742 March, [facility] [place] [facility] [address] [id number] [place] [address]- 5369 March, [facility] [address] [id number] [place] [address]- 2206 Feb, [facility] [place] [facility] [address] [id number] [place] [address]- 4076 Feb, [facility] [address] [id number] [place] [address]- 9206 Feb, [facility] [place] [facility] [address] [id number] [place] [address]- 8506 Feb, [facility] [place] [facility] [address] [id number] [place] [address]- 7591 Feb, [facility] [place] [facility] [address] [id number] [place] [address]- 6088 Feb, [facility] [address] [id number] [place] [address]- 9411 Feb, [facility] [place] [facility] [address] [id number] [place] [address]- 4854 Feb, [facility] [place] [facility] [address] [id number] [place] [address]- 9217 Feb, [facility] [address] [id number] [place] [address]- 3815 Jan, [facility] [place] [facility] [address] [id number] [place] [address]- 7040 Jan, [facility] [place] [facility] [address] [id number] [place] [address]- 0666 Jan, [facility] [place] [facility] [address] [id number] [place] [address]- 1054 Jan, [facility] [place] [facility] [address] [id number] [place] [address]- 9216 Jan, [facility] [place] [facility] [address] [id number] [place] [address]- 7912 Jan, [facility] [place] [facility] [address] [id number] [place] [address]- 4572 14 Jan, 2012 [facility] [place] [facility] [address] [id number] [place] [address]- 0893 Jan, [facility] [place] [facility] [address] [id number] [place] [address] Jan, [facility] [place] [facility] [address] [id number] [place] [address]- 1939 08 Jan, 2012 [facility] [place] [facility] [address] [id number] [place] [address]- 4276 07 Jan, 2012 [facility] [place] [facility] [address] [id number] [place] [address]- 5774 06 Jan, 2012 [facility] [place] [facility] [address] [id number] [place] [address]- 9905 Jan, [facility] [place] [facility] [address] [id number] [place] [address]- 8282 Jan, [facility] [place] [facility] [address] [id number] [place] [address]- 4257 Dec, [facility] [place] [facility] [address] [id number] [place] [address]- 1002 Dec, [facility] [place] [facility] [address] [id number] [place] [address]- 4313 Dec, [facility] [place] [facility] [address] [id number] [place] [address]- 3114 23 Dec, 2011 [facility] [place] [facility] [address] [id number] [place] [address]- 8180 16 Dec, 2011 [facility] [place] [facility] [address] [id number] [place] [address]- 2436 08 Dec, 2011 [facility] [place] [facility] [address] [id number] [place] [address]- 7056 08 Dec, 2011 [facility] [place] [facility] [address] [id number] [place] [address]- 2354 07 Dec, 2011 [facility] [address] [id number] [place] [address]- 9256 Dec, [facility] [address] [id number] [place] [address]- 1086 Nov, [facility] [address] [id number] [place] [address]- 0664 Nov, [facility] [address] [id number] [place] [address]- 3186 Nov, [facility] [address] [id number] [place] [address]- 7122 Nov, [facility] [address] [id number] [place] [address]- 8703 Oct, [facility] [address] [id number] [place] [address]- 7195 Oct, [facility] [address] [id number] [place] [address]- 4055 Oct, [facility] [address] [id number] [place] [address]- 0314 Oct, [facility] [address] [id number] [place] [address]- 2652 Oct, [facility] [address] [id number] [place] [address]- 2376 Oct, [facility] [address] [id number] [place] [address]- 7557 Oct, [facility] [place] [facility] [address] [id number] [place] [address]- 0757 Sep, [facility] [place] [facility] [address] [id number] [place] [address]- 8719 Sep, [facility] [address] [id number] [place] [address]- 3495 Sep, [facility] [place] [facility] [address] [id number] [place] [address]- 7596 Sep, [facility] [place] [facility] [address] [id number] [place] 8046 Sep, [facility] [place] [facility] [address] [id number] [place] [address]- 1874 Sep, [facility] [place] [facility] [address] [id number] [place] [address]- 2222 Sep, [facility] [place] [facility] [address] [id number] [place] [address]- 4569 Sep, [facility] [place] [facility] [address] [id number] [place] [address]- 4374 Sep, [facility] [place] [facility] [address] [id number] [place] [address]- 4797 Aug, [facility] [place] [facility] [address] [id number] [place] [address]- 3202 Aug, [facility] [place] [facility] [address] [id number] [place] [address]- 6246 Aug, [facility] [place] [facility] [address] [id number] [place] [address]- 6134 May, [facility] [place] [facility] [address] [id number] [place] [address]- 8823 Nov, [facility] [place] [facility] [address] [id number] [place] [address]- 4982 Oct, [facility] [place] [facility] [address] [id number] [place] [address]- 5525 Oct, [facility] [place] [facility] [address] [id number] [place] [address]- 2941 Oct, [facility] [place] [facility] [address] [id number] [place] [address]- 6962 Oct, [facility] [place] [facility] [address] [id number], [place] [address] 1939 Oct, [facility] [address] [facility] [id number], [place] [address]- 6236 03 Sep, 2010 [facility] [address] [facility] [id number], [place] [address]- 8206 Sep, [facility] [address] [facility] [id number], [place] [address]- 5626 14 Jul, 2010 [facility] [address] [facility] [id number], [place] [address]- 0721 31 Oct, 2009 [facility] [address] [facility] [id number], [place] [address]- 0905 Oct, [facility] [address] [facility] [id number], [place] [address]- 2748 Oct, [facility] [address] [facility] [id number], [place] [address]- 2666 Oct, [facility] [address] [facility] [id number], [place] [address]- 0972 30 Sep, 2009 [facility] [address] [facility] [id number], [place] [address]- 3031 Sep, [facility] [address] [facility] [id number], [place] [address]- 5053 Sep, [facility] [address] [facility] [id number], [place] [address]- 8037 Sep, [facility] [address] [facility] [id number], [place] [address] Sep, [facility] [address] [facility] [id number], [place] [address] 11 Jul, 2009 [facility] [address] [facility] [id number], [place] [address] Apr, [facility] [address] [facility] [id number][place] [address] Dec, 2008 IMMUNIZATIONS No Known Immunizations SOCIAL HISTORY Never Assessed REASON FOR VISIT Requests return call/ worsening symptoms PLAN OF CARE VITAL SIGNS MEDICATIONS Unknown Medications RESULTS No Results PROCEDURES No Known procedures INSTRUCTIONS MEDICATIONS ADMINISTERED No Known Medications MEDICAL (GENERAL) HISTORY Type Description Date Medical History hypertension Medical History hyperlipidemia Medical History diabetes type II Medical History COPD Medical History asthma Surgical History hysterectomy Surgical History arthritis surgery Hospitalization History surgeries
--- OUTSIDE RECORDS SUMMARY | 2018-11-26 15:54 | XMS REPORT ---
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 Name Role Phone KING FISHMAN Unavailable PROBLEMS Type Condition ICD9-CM Code QXE30-YD Code Onset Dates Condition Status SNOMED Code Problem Gastroesophageal reflux disease, esophagitis presence not specified K21.9 Active 759425398 Problem Lumbago with sciatica, right side M54.41 Active 10280052378913402 Problem Lumbago with sciatica, left side M54.42 Active 687824400 Problem Iron deficiency anemia due to chronic blood loss D50.0 Active 306292963 Problem Seizures R56.9 Active 35680956 Problem Cigarette nicotine dependence without complication F17.210 Active 53197592 Problem Other chronic pain G89.29 Active 79717421 Problem Chronic obstructive pulmonary disease, unspecified COPD type J44.9 Active 46422546 Problem Pain in right ankle and joints of right foot M25.571 Active 53362707062448 Problem Reactive depression F32.9 Active 95486560 Problem Mixed hyperlipidemia E78.2 Active 223238295 Problem Essential hypertension I10 Active 69704992 Problem Prediabetes R73.03 Active 156897457 Problem Acquired hypothyroidism E03.9 Active 409949326 ALLERGIES No Information ENCOUNTERS Encounter Location Date Diagnosis [facility] [id number], [place] [address] Jul, [id number] [place] [address]153- 9559 Jun, Pain in thoracic spine M54.6 [address] [id number] [place] [address] 17960- 0196 16 Jun, 2018 Iron deficiency anemia due to chronic blood loss D50.0 and Hematochezia K92.1 [place] [id number] [place] [address] 65615- 5022 Jun, Gastroenteritis K52.9 and Abnormal RBC indices R71.8 [facility] [address] [address]- [address] Jun, [facility] [address] [address] 2549 Jun, Chest congestion R09.89 and Seizures R56.9 [facility] [address] [address]- 1852 May, Pain in thoracic spine M54.6 [facility] [address] [address]- 0806 May, [facility] [address] [address]- 1182 May, [facility] [address] [address]- 8976 May, [facility] [address] [address]- 5799 May, Acute non-recurrent frontal sinusitis J01.10 and Dermatitis L30.9 [facility] [id number] [place] [address] 47945- 2375 May, [facility] [id number] [place] [address] 77306- 5275 May, Pain in thoracic spine M54.6 [facility] [id number] [place] [address] 73305- 2546 May, [facility] [address] [address]- 0740 May, Acute nasopharyngitis J00 [facility] [id number] [place] [address] 78637- 2546 May, [facility] [address] 98404- 0089 May, [facility] [address] [address] 2[address] Apr, [facility] [id number] [place] [address] 71097- 5907 Apr, [facility] [id number] [place] [address] 72413- 6262 Apr, [facility] [id number] [place] [address] 90054- 4459 Apr, [facility] [id number] [place] [address] 15461- 2431 Apr, Pain in right ankle and joints of right foot M25.571 [place] [id number] [place] [address] 92388- 9088 Apr, [place] [id number] [place] [address] 06421- 4114 Apr, Bronchitis J40 ; Pain in right ankle and joints of right foot M25.571 ; Other chronic pain G89.29 ; Prediabetes R73.03 ; Chronic obstructive pulmonary disease, unspecified COPD type J44.9 and Cigarette nicotine dependence without complication F17.210 [facility] [id number] [place] [address] 48065 -2187 Apr, Seasonal allergic rhinitis, unspecified trigger J30.2 [place] [id number] [place] [address] 38544- 4401 Apr, Onychomycosis B35.1 ; Onychocryptosis L60.0 and DM 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 [address] [id number] [place] [address] 52017- 2941 Apr, Reactive depression F32.9 ; Thoracic myofascial strain, initial encounter S29.019A and Leg cramps R25.2 [facility] [id number] [place] [address] 08641- 5555 March, [place] [id number] [place] [address] 92280- 9713 March, Type 2 diabetes mellitus with hyperglycemia E11.65 [address] [address] 65487- 7502 March, Reactive depression F32.9 [address] [address] 45714- 9373 March, Pain in thoracic spine M54.6 and Other chronic pain G89.29 [address] [address] 08711- 9642 Feb, [place] [address] 94372- 3294 Jan, Reactive depression F32.9 ; Essential hypertension I10 ; Gastroesophageal reflux disease, esophagitis presence not specified K21.9 ; Lumbago with sciatica, left side M54.42 and Lumbago with sciatica, right side M54.41 [address] [address] 32795- 5735 Jan, Reactive depression F32.9 and Pharyngoesophageal dysphagia R13.14 [address] [place] [address] 37483- 8955 Jan, [address] [address]- 0852 Jan, Encounter for immunization Z23 [place] [address] 01448- 8926 Jan, Onychomycosis B35.1 and DM 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 [place] [address] 78791- 1759 Jan, [address] 55958- 6697 Jan, Prediabetes R73.03 [address] [place] [address] 34113- 4241 Dec, [facility] [id number] [place] [address] 04338- 8840 Dec, Essential hypertension I10 ; Mixed hyperlipidemia E78.2 ; Acquired hypothyroidism E03.9 ; Reactive depression F32.9 and Prediabetes R73.03 [facility] [id number] [place] [address] 93210- 0343 Dec, [facility] [id number] [place] [address] 23954- 8617 Dec, [facility] [id number] [place] [address] 20517- 6275 Dec, DM 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 [facility] [id number] [place] [address] 71846 -2626 Dec, Bruise T14.8XXA ; Type 2 diabetes mellitus with hyperglycemia E11.65 and long-term current use of insulin Z79.4 [place] [id number] [place] [address] 42575- 8515 Oct, [place] [id number] [place] [address] 60358- 9812 March, Onychomycosis B35.1 and DM 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 [facility] [id number] [place] [address] 13699- 2282 Jun, [facility] [id number] [place] [address] 41047- 9402 Jun, [facility] [id number] [place] [address] 39056- 8700 Jun, COPD with acute exacerbation 491.21 [facility] [id number] [place] [address] 33144- 5527 Apr, [facility] [id number] [place] [address] 69956- 1959 Feb, [facility] [place] [facility] [address] [id number] [place] [address]- 0232 13 Feb, 2015 [facility] [place] [facility] [address] [id number] [place] [address]- 7343 26 Jan, 2015 [facility] [place] [facility] [address] [id number] [place] [address]- 4869 Jan, [facility] [place] [facility] [address] [id number] [place] [address]- 7105 Jan, [facility] [place] [facility] [address] [id number] [place] [address]- 6443 Jan, [facility] [place] [facility] [address] [id number] [place] [address]- 8298 24 Jan, 2015 [facility] [place] [facility] [address] [id number] [place] [address]- 1703 Jan, [facility] [place] [facility] [address] [id number] [place] [address]- 4776 Jan, [facility] [place] [facility] [address] [id number] [place] [address]- 6039 Jan, [facility] [place] [facility] [address] [id number] [place] [address]- 1324 23 Jan, 2015 [facility] [place] [facility] [address] [id number] [place] [address]- 1867 19 Jan, 2015 [facility] [place] [facility] [address] [id number] [place] [address]- 3170 19 Jan, 2015 [facility] [place] [facility] [address] [id number] [place] [address]- 7326 18 Jan, 2015 [facility] [place] [facility] [address] [id number] [place] [address]- 1868 18 Jan, 2015 [facility] [place] [facility] [address] [id number] [place] [address]- 6175 16 Jan, 2015 [facility] [place] [facility] [address] [id number] [place] [address]- 3877 16 Jan, 2015 [facility] [place] [facility] [address] [id number] [place] [address]- 8203 16 Jan, 2015 [facility] [place] [facility] [address] [id number] [place] [address]- 7490 16 Jan, 2015 [facility] [place] [facility] [address] [id number] [place] [address]- 4542 15 Jan, 2015 [facility] [place] [facility] [address] [id number] [place] [address]- 8493 13 Jan, 2015 [facility] [place] [facility] [address] [id number] [place] [address]- 4115 13 Jan, 2015 [facility] [place] [facility] [address] [id number] [place] [address]- 9046 13 Jan, 2015 [facility] [place] [facility] [address] [id number] [place] [address]- 5525 13 Jan, 2015 [facility] [place] [facility] [address] [id number] [place] [address]- 0440 12 Jan, 2015 [facility] [place] [facility] [address] [id number] [place] [address]- 8892 04 Jan, 2015 [facility] [place] [facility] [address] [id number] [place] [address]- 1949 04 Jan, 2015 [facility] [place] [facility] [address] [id number] [place] [address]- 8734 24 Dec, 2014 [facility] [place] [facility] [address] [id number] [place] [address]- 8407 Dec, [facility] [place] [facility] [address] [id number] [place] [address]- 0446 Dec, [facility] [place] [facility] [address] [id number] [place] [address]- 0070 Dec, [facility] [place] [facility] [address] [id number] [place] [address]- 8762 23 Dec, 2014 [facility] [place] [facility] [address] [id number] [place] [address]- 4384 Dec, 2014 [facility] [place] [facility] [address] [id number] [place] [address]- 8030 Dec, 2014 [facility] [place] [facility] [address] [id number] [place] [address]- 4568 Dec, 2014 [facility] [place] [facility] [address] [id number] [place] [address]- 1229 Dec, 2014 [facility] [place] [facility] [address] [id number] [place] [address]- 4687 Dec, 2014 [facility] [place] [facility] [address] [id number] [place] [address]- 1730 Dec, 2014 [facility] [place] [facility] [address] [id number] [place] [address]- 6961 Dec, [facility] [place] [facility] [address] [id number] [address]- 2982 Nov, [facility] [place] [facility] [address] [id number] [place] [address]- 4999 Nov, [facility] [place] [facility] [address] [id number], [place] [address]- 6401 Nov, [facility] [place] [facility] [address] [id number], [place] [address]- 8921 Nov, [facility] [place] [facility] [address] [id number], [place] [address]- 1055 Nov, [facility] [place] [facility] [address] [id number], [place] [address]- 5942 Nov, [facility] [place] [facility] [address] [id number], [place] [address]- 9450 Nov, [facility] [place] [facility] [address] [id number], [place] [address]- 3133 15 Nov, 2014 [facility] [place] [facility] [address] [id number], [place] [address]- 0677 Nov, [facility] [address] [id number] [place] [address]- 5818 Nov, [facility] [place] [facility] [address] [id number] [place] [address]- 3213 Nov, [facility] [place] [facility] [address] [facility] [id number] [place] [address]- 5779 Nov, [facility] [place] [facility] [address] [id number] [place] [address]- 8526 Oct, [facility] [place] [facility] [address] [id number] [place] [address]- 7284 Oct, [facility] [place] [facility] [address] [id number] [place] [address]- 9984 Oct, [facility] [address] [id number] [place] [address]- 7494 Oct, [facility] [place] [facility] [address] [id number] [place] [address]- 2984 Oct, [facility] [place] [facility] [address] [id number] [place] [address]- 8284 Oct, [facility] [place] [facility] [address] [facility] [id number] [place] [address]- 2239 Oct, [facility] [place] [facility] [address] [id number] [place] [address]- 7688 Oct, [facility] [place] [facility] [address] [id number] [place] [address]- 7741 Oct, [facility] [place] [facility] [address] [id number] [place] [address]- 3328 Oct, [facility] [place] [facility] [address] [id number] [place] [address]- 6328 16 Oct, 2014 [facility] [place] [facility] [address] [id number] [place] [address]- 6403 16 Oct, 2014 [facility] [place] [facility] [address] [id number] [place] [address]- 2342 15 Oct, 2014 [facility] [place] [facility] [address] [id number] [place] 2888 Oct, [facility] [place] [facility] [address] [id number] [place] [address]- 0561 Oct, [facility] [place] [facility] [address] [id number] [place] 7218 Sep, [facility] [place] [facility] [address] [id number] [place] [address]- 4222 Sep, [facility] [place] [facility] [address] [id number] [place] [address]- 3658 Sep, [facility] [place] [facility] [address] [id number] [place] [address]- 9143 Sep, [facility] [place] [facility] [address] [id number] [place] [address]- 5417 Aug, [facility] [place] [facility] [address] [id number] [place] [address]- 3653 Aug, [facility] [place] [facility] [address] [id number] [place] [address]- 5098 Aug, [facility] [place] [facility] [address] [id number] [place] [address]- 7628 Aug, [facility] [place] [facility] [address] [id number] [place] [address]- 9760 Aug, [facility] [place] [facility] [address] [id number] [place] [address]- 7723 Aug, [facility] [place] [facility] [address] [id number] [place] [address]- 1603 Jul, [facility] [place] [facility] [address] [id number] [place] [address]- 8886 29 Jul, 2014 [facility] [place] [facility] [address] [id number] [place] [address]- 3454 Jul, [facility] [place] [facility] [address] [id number] [place] [address]- 4119 Jul, [facility] [place] [facility] [address] [id number] [place] [address]- 7506 Jul, [facility] [place] [facility] [address] [id number] [place] [address]- 8755 Jul, [facility] [place] [facility] [address] [id number] [place] [address]- 3564 Jun, [facility] [place] [facility] [address] [id number] [place] [address]- 5616 Jun, [facility] [place] [facility] [address] [id number] [place] [address]- 4319 Jun, [facility] [place] [facility] [address] [id number] [place] [address]- 2990 Jun, [facility] [place] [facility] [address] [id number] [place] [address]- 6715 Jun, [facility] [place] [facility] [address] [id number] [place] [address]- 9119 Jun, [facility] [place] [facility] [address] [id number] [place] [address]- 1561 Jun, [facility] [place] [facility] [address] [id number] [place] [address]- 2253 May, [facility] [place] [facility] [address] [id number] [place] [address]- 1276 May, [facility] [place] [facility] [address] [id number] [place] [address]- 5228 May, [facility] [place] [facility] [address] [id number] [place] [address]- 3575 May, [facility] [place] [facility] [address] [id number] [place] [address]- 6104 May, [facility] [place] [facility] [address] [id number] [place] [address]- 5039 May, 2013 [facility] [place] [facility] [address] [id number] [place] [address]- 9589 May, 2013 [facility] [place] [facility] [address] [id number] [place] [address]- 2467 May, 2013 [facility] [place] [facility] [address] [id number] [place] [address]- 5922 May, 2013 [facility] [place] [facility] [address] [id number] [place] [address]- 0499 May, 2013 [facility] [place] [facility] [address] [id number] [place] [address]- 7059 May, [facility] [place] [facility] [address] [id number] [place] [address]- 8488 May, [facility] [place] [facility] [address] [id number] [place] [address]- 5056 Apr, [facility] [place] [facility] [address] [id number] [place] [address]- 2122 Apr, [facility] [place] [facility] [address] [id number] [place] [address]- 8910 Apr, [facility] [place] [facility] [address] [id number] [place] [address]- 0093 Apr, [facility] [place] [facility] [address] [id number] [place] [address]- 1503 Apr, [facility] [place] [facility] [address] [id number] [place] [address]- 2648 Apr, [facility] [place] [facility] [address] [id number] [place] [address]- 9343 Apr, [facility] [place] [facility] [address] [id number] [place] [address]- 6375 Apr, [facility] [place] [facility] [address] [id number] [place] [address]- 4810 Apr, [facility] [place] [facility] [address] [id number] [place] [address]- 4082 Apr, [facility] [place] [facility] [address] [id number] [place] [address]- 7432 March, [facility] [place] [facility] [address] [id number] [place] [address]- 7274 March, [facility] [place] [facility] [address] [id number] [place] [address]- 5125 March, [facility] [place] [facility] [address] [id number] [place] [address]- 6078 March, [facility] [place] [facility] [address] [id number] [place] [address]- 8088 March, [facility] [place] [facility] [address] [id number] [place] [address]- 6451 March, [facility] [place] [facility] [address] [id number] [place] [address]- 5151 Feb, [facility] [place] [facility] [address] [id number] [place] [address]- 0611 Feb, [facility] [place] [facility] [address] [id number] [place] [address]- 5500 Feb, [facility] [place] [facility] [address] [id number] [place] [address]- 1745 Feb, [facility] [place] [facility] [address] [id number] [place] [address]- 2342 Feb, [facility] [place] [facility] [address] [id number] [place] [address]- 2256 Feb, [facility] [place] [facility] [address] [id number] [place] [address]- 5999 Feb, [facility] [place] [facility] [address] [id number] [place] [address]- 0953 Feb, [facility] [place] [facility] [address] [id number] [place] [address] Feb, [facility] [place] [facility] [address] [id number] [id number] [address] Feb, [facility] [place] [facility] [address] [id number] [place] [address] Jan, [facility] [place] [facility] [address] [id number] [place] [address] Jan, [facility] [place] [facility] [address] [id number] [place] [address] 89[address] Jan, [facility] [place] [facility] [address] [id number] [place] [address] Jan, [facility] [place] [facility] [address] [id number] [place] [address] Jan, [facility] [place] [facility] [address] [facility] [id number] [place] [address] Jan, [facility] [place] [facility] [address] [id number] [place] [address] Jan, [facility] [place] [facility] [address] [id number] [place] [address] Jan, [facility] [place] [facility] [address] [facility] [id number] [place] [address]- 9543 Dec, [facility] [place] [facility] [address] [id number] [place] [address]- 63[address] Dec, [facility] [place] [facility] [address] [id number] [place] [address] Dec, [facility] [place] [facility] [address] [id number] [place] [address] Dec, [facility] [place] [facility] [address] [id number] [place] [address]- 3766 Dec, [facility] [place] [facility] [address] [facility] [id number] [place] [address]- 1655 Dec, [facility] [place] [facility] [address] [id number] [place] [address]- 4[address] Dec, [facility] [place] [facility] [address] [id number] [place] [address]- [address] Dec, [facility] [place] [facility] [address] [id number] [place] [address]- 3546 Nov, [facility] [place] [facility] [address] [id number] [place] [address]- 75[address] Nov, [facility] [place] [facility] [address] [id number] [place] [address]- 6[address] Nov, [facility] [place] [facility] [address] [id number] [place] [address]- 4[address] Nov, [facility] [place] [facility] [address] [id number] [place] [address]- 2634 Nov, [facility] [place] [facility] [address] [id number] [place] [address]- 4120 Nov, [facility] [place] [facility] [address] [id number] [place] [address]- [address] Nov, [facility] [place] [facility] [address] [id number] [place] [address]- [address] Nov, [facility] [place] [facility] [address] [id number] [place] [address]279 Nov, [facility] [place] [facility] [address] [id number] [place] [address]- [address] Nov, [facility] [place] [facility] [address] [id number] [place] [address]- 2549 Nov, [facility] [place] [facility] [address] [id number] [place] [address]- [address] Oct, [facility] [place] [facility] [address] [id number] [place] [address]- 0904 Oct, [facility] [place] [facility] [address] [id number] [place] [address]- 5026 Oct, [facility] [place] [facility] [address] [id number] [place] [address]- [address]061 Oct, [facility] [place] [facility] [address] [id number] [place] [address] Sep, [facility] [place] [facility] [address] [id number] [place] [address] Sep, [facility] [place] [facility] [address] [id number] [place] [address]- [address]134 Sep, [facility] [place] [facility] [address] [id number] [place] [address]- 4185 Sep, [facility] [place] [facility] [address] [id number] [place] [address]- 69[address] Aug, [facility] [place] [facility] [address] [id number] [place] [address]- 0732 Aug, [facility] [place] [facility] [address] [id number] [place] [address]- 8714 Aug, [facility] [place] [facility] [address] [id number] [place] [address]- 9929 Aug, [facility] [place] [facility] [address] [id number] [place] [address]- 5171 Aug, [facility] [place] [facility] [address] [id number], [place] [address]- [address] Aug, [facility] [place] [facility] [address] [id number], [place] [address] Aug, [facility] [place] [facility] [address] [id number] [place] [address] Aug, [facility] [place] [facility] [address] [id number], [place] [address]- [address] Jul, [facility] [place] [facility] [address] [id number] [place] [address]- 8764 Jul, [facility] [place] [facility] [address] [id number] [place] [address] 2545 26 Sep, 2012 [facility] [address] [id number] [place] [address] 2546 24 Sep, 2012 [facility] [address] [id number] [place] [address] 2546 24 Jul, 2012 [facility] [address] [id number] [place] [address] 2546 23 Sep, 2012 [facility] [address] [id number] [place] [address]- [address]41 19 Sep, 2012 [facility] [address] [id number] [place] [address]- 2600 18 Jul, 2012 [facility] [address] [id number] [place] [address]- [address] 17 Jul, 2012 [facility] [address] [id number] [place] [address]- [address]41 16 Jul, 2012 [facility] [address] [id number] [place] [address]- [address] 13 Jul, 2012 [facility] [address] [id number] [place] [address]- [address]40 13 Jul, 2012 [facility] [facility] [address] [id number] [place] [address] 12 Jul, 2012 [facility] [address] [id number] [place] [address] 2549 11 Jul, 2012 [facility] [address] [id number] [place] [address] 2542 04 Jul, 2012 [facility] [place] [facility] [address] [id number] [place] [address] 2987 30 Jun, 2013 [facility] [place] [facility] [address] [id number] [place] [address] 2549 Jun, [facility] [address] [id number] [place] [address]- 1502 Jun, [facility] [address] [id number] [place] [address] 8490 May, [facility] [place] [facility] [address] [id number] [place] [address]- 4527 May, [facility] [place] [facility] [address] [id number] [place] [address]- 1199 May, [facility] [place] [facility] [address] [id number] [place] [address] 2680 May, [facility] [place] [facility] [address] [id number] [place] [address]- 1705 Apr, [facility] [place] [facility] [address] [id number] [place] [address]- 5465 Apr, [facility] [place] [facility] [address] [id number] [place] [address]- 1027 Apr, [facility] [place] [facility] [address] [id number] [place] [address]- 3550 Apr, [facility] [place] [facility] [address] [id number] [place] [address]- 8863 March, [facility] [place] [facility] [address] [id number] [place] [address] March, [facility] [place] [facility] [address] [id number] [place] [address]- 3869 March, [facility] [place] [facility] [address] [id number] [place] [address]- 6361 Feb, [facility] [place] [facility] [address] [id number] [place] [address]- 1468 Feb, [facility] [place] [facility] [address] [id number] [place] [address]- 7336 Jan, [facility] [place] [facility] [address] [id number] [place] [address]- 8464 Jan, [facility] [place] [facility] [address] [id number], [place] [address] 250[address] Jan, [facility] [address] [id number] [place] [address]- 6561 Jan, [facility] [address] [id number] [place] [address]- 7486 Jan, [facility] [address] [id number] [place] [address]- 8556 Dec, [facility] [address] [id number] [place] [address]- 5061 Dec, [facility] [address] [id number] [place] [address]- 8998 Dec, [facility] [address] [id number] [place] [address]- 2126 Dec, [facility] [address] [id number] [place] [address]- 4952 Dec, [facility] [address] [id number] [place] [address]- 4301 Dec, [facility] [address] [id number] [address]- 7951 Dec, [facility] [address] [facility] [id number] [place] [address]- 3094 Dec, [facility] [address] [id number] [place] [address]- 4470 Nov, [facility] [address] [id number] [place] [address] 2543 Nov, [facility] [place] [facility] [address] [id number] [place] [address]- 5898 Nov, [facility] [address] [id number] [place] [address]- 3520 Nov, [facility] [address] [facility] [id number] [place] [address]- 6886 Nov, [facility] [place] [facility] [address] [id number] [place] [address]- 7031 Nov, [facility] [place] [facility] [address] [id number] [place] [address]- 0770 Nov, [facility] [place] [facility] [address] [id number] [place] [address]- 5066 Oct, [facility] [place] [facility] [address] [id number] [place] [address]- 5314 Oct, [facility] [place] [facility] [address] [id number] [place] [address]- 4980 Oct, [facility] [place] [facility] [address] [id number] [place] [address]- 9108 Oct, [facility] [place] [facility] [address] [id number] [place] [address]- 2502 Oct, [facility] [place] [facility] [address] [id number] [place] [address]- 0798 Oct, [facility] [place] [facility] [address] [id number] [place] [address]- 8448 Oct, [facility] [place] [facility] [address] [id number] [place] [address]- 8067 Oct, [facility] [place] [facility] [address] [id number], [place] [address]- 8356 Sep, [facility] [place] [facility] [address] [id number], [place] [address]- 9756 Sep, [facility] [place] [facility] [address] [id number] [place] [address]- 3127 Sep, [facility] [place] [facility] [address] [id number] [place] [address]- 0472 Sep, [facility] [place] [facility] [address] [id number] [place] [address]- 4988 Sep, [facility] [place] [facility] [address] [id number], [place] [address]- 6485 Sep, [facility] [place] [facility] [address] [id number] [place] [address]- 6401 Sep, [facility] [place] [facility] [address] [id number] [place] [address]- 7927 Sep, [facility] [place] [facility] [address] [facility] [id number] [place] [address]- 0493 Sep, [facility] [place] [facility] [address] [id number] [place] [address]- 3019 Sep, [facility] [place] [facility] [address] [facility] [id number] [place] [address], [place] [address]- 0236 Sep, [facility] [place] [facility] [address] [facility] [id number] [place] [address]- 0739 Sep, [facility] [place] [facility] [id number], [place] [address]- 0627 Sep, [facility] [place] [facility] [address] [facility] [id number] [place] [address]- 5279 Sep, [facility] [place] [facility] [address] [id number] [address]- 6048 Sep, [facility] [place] [facility] [address] [id number] [address]- 6030 Sep, [facility] [place] [facility] [address] [facility] [id number], [place] [address]- 1407 Sep, [facility] [place] [facility] [address] [facility] [id number], [place] [address]- 9273 Sep, [facility] [place] [facility] [address] [facility] [id number] [place] [address]- 3448 Sep, [facility] [place] [facility] [address] [facility] [id number] [place] [address]- 8004 Sep, [facility] [place] [facility] [address] [id number] [address]- 6333 Aug, [facility] [place] [facility] [address] [id number] [place] [address]- 2920 31 Aug, 2011 [facility] [place] [facility] [address] [id number] [place] [address]- 6837 29 Aug, 2011 [facility] [place] [facility] [address] [id number] [place] [address]- 4200 27 Aug, 2011 [facility] [place] [facility] [address] [id number] [place] [address]- 0799 27 Aug, 2011 [facility] [place] [facility] [address] [id number] [place] [address]- 8280 18 Aug, 2011 [facility] [place] [facility] [address] [id number] [place] [address]- 0078 18 Aug, 2012 [facility] [place] [facility] [address] [id number] [place] [address]- 2794 17 Aug, 2012 [facility] [place] [facility] [address] [id number] [place] [address]- 0537 16 Aug, 2012 [facility] [place] [facility] [address] [id number] [place] [address]- 1860 16 Aug, 2012 [facility] [place] [facility] [address] [id number] [place] [address]- 6894 15 Aug, 2012 [facility] [place] [facility] [address] [id number] [place] [address]- 5570 09 Aug, 2012 [facility] [place] [facility] [address] [id number] [place] [address]- 4960 05 Aug, 2012 [facility] [place] [facility] [address] [id number] [place] [address]- 6220 05 Aug, 2012 [facility] [place] [facility] [address] [id number] [place] [address]- 1528 04 Aug, 2012 [facility] [place] [facility] [address] [id number] [place] [address]- 7047 14 Jul, 2012 [facility] [place] [facility] [address] [id number] [place] [address]- 6875 Jul, [facility] [place] [facility] [address] [id number] [place] [address]- 9544 Jun, [facility] [place] [facility] [address] [id number] [place] [address]- 1966 Jun, [facility] [place] [facility] [address] [id number] [place] [address]- 8078 May, [facility] [place] [facility] [address] [id number] [place] [address]- 9050 May, [facility] [place] [facility] [address] [id number] [place] [address]- 9298 May, [facility] [place] [facility] [address] [id number] [place] [address]- 1642 May, [facility] [place] [facility] [address] [id number] [place] [address]- 7274 May, [facility] [place] [facility] [address] [id number] [place] [address]- 8325 May, [facility] [place] [facility] [address] [id number] [place] [address]- 3712 Apr, [facility] [place] [facility] [address] [id number] [place] [address]- 6095 Apr, [facility] [place] [facility] [address] [id number] [place] [address]- 3502 March, [facility] [place] [facility] [address] [id number] [place] [address]- 8657 March, [facility] [place] [facility] [address] [id number] [place] [address]- 3401 March, [facility] [place] [facility] [address] [id number] [place] [address]- 4128 March, [facility] [place] [facility] [address] [id number] [place] [address]- 4415 March, [facility] [place] [facility] [address] [id number] [place] [address]- 6885 March, [facility] [address] [id number] [place] [address]- 5896 Feb, [facility] [place] [facility] [address] [id number] [place] [address]- 1026 Feb, [facility] [address] [id number] [place] [address]- 7976 Feb, [facility] [place] [facility] [address] [id number] [place] [address]- 4086 Feb, [facility] [place] [facility] [address] [id number] [place] [address]- 6149 Feb, [facility] [place] [facility] [address] [id number] [place] [address]- 7417 Feb, [facility] [address] [id number] [place] [address]- 6942 Feb, [facility] [place] [facility] [address] [id number] [place] [address]- 9893 Feb, [facility] [place] [facility] [address] [id number] [place] [address]- 1729 Feb, [facility] [address] [id number] [place] [address]- 0890 Jan, [facility] [place] [facility] [address] [id number] [place] [address]- 6318 Jan, [facility] [place] [facility] [address] [id number] [place] [address]- 5357 Jan, [facility] [place] [facility] [address] [id number] [place] [address]- 0714 Jan, [facility] [place] [facility] [address] [id number] [place] [address]- 4636 Jan, [facility] [place] [facility] [address] [id number] [place] [address]- 9834 Jan, [facility] [place] [facility] [address] [id number] [place] [address]- 8778 14 Jan, 2012 [facility] [place] [facility] [address] [id number] [place] [address]- 2935 Jan, [facility] [place] [facility] [address] [id number] [place] 6096 Jan, [facility] [place] [facility] [address] [id number] [place] [address]- 9651 08 Jan, 2012 [facility] [place] [facility] [address] [id number] [place] [address]- 2449 07 Jan, 2012 [facility] [place] [facility] [address] [id number] [place] [address]- 2650 06 Jan, 2012 [facility] [place] [facility] [address] [id number] [place] [address]- 4634 Jan, [facility] [place] [facility] [address] [id number] [place] [address]- 0015 Jan, [facility] [place] [facility] [address] [id number] [place] [address]- 5904 Dec, [facility] [place] [facility] [address] [id number] [place] [address]- 6869 Dec, [facility] [place] [facility] [address] [id number] [place] [address]- 8411 Dec, [facility] [place] [facility] [address] [id number] [place] [address]- 9844 23 Dec, 2011 [facility] [place] [facility] [address] [id number] [place] [address]- 1184 16 Dec, 2011 [facility] [place] [facility] [address] [id number] [place] [address]- 8286 08 Dec, 2011 [facility] [place] [facility] [address] [id number] [place] [address]- 6177 08 Dec, 2011 [facility] [place] [facility] [address] [id number] [place] [address]- 1331 07 Dec, 2011 [facility] [address] [id number] [place] [address]- 9336 Dec, [facility] [address] [id number] [place] [address]- 4476 Nov, [facility] [address] [id number] [place] [address]- 9659 Nov, [facility] [address] [id number] [place] [address]- 0695 Nov, [facility] [address] [id number] [place] [address]- 6523 Nov, [facility] [address] [id number] [place] [address]- 4774 Oct, [facility] [address] [id number] [place] [address]- 8924 Oct, [facility] [address] [id number] [place] [address]- 2964 Oct, [facility] [address] [id number] [place] [address]- 0298 Oct, [facility] [address] [id number] [place] [address]- 3194 Oct, [facility] [address] [id number] [place] [address]- 4036 Oct, [facility] [address] [id number] [place] [address]- 2394 Oct, [facility] [place] [facility] [address] [id number] [place] [address]- 5477 Sep, [facility] [place] [facility] [address] [id number] [place] [address]- 1482 Sep, [facility] [address] [id number] [place] [address]- 7769 Sep, [facility] [place] [facility] [address] [id number] [place] [address]- 0560 Sep, [facility] [place] [facility] [address] [id number] [place] 7813 Sep, [facility] [place] [facility] [address] [id number] [place] [address]- 1290 Sep, [facility] [place] [facility] [address] [id number] [place] [address]- 4339 Sep, [facility] [place] [facility] [address] [id number] [place] [address]- 5059 Sep, [facility] [place] [facility] [address] [id number] [place] [address]- 5394 Sep, [facility] [place] [facility] [address] [id number] [place] [address]- 8271 Aug, [facility] [place] [facility] [address] [id number] [place] [address]- 3532 Aug, [facility] [place] [facility] [address] [id number] [place] [address]- 8795 Aug, [facility] [place] [facility] [address] [id number] [place] [address]- 6824 May, [facility] [place] [facility] [address] [id number] [place] [address]- 5266 Nov, [facility] [place] [facility] [address] [id number] [place] [address]- 2173 Oct, [facility] [place] [facility] [address] [id number] [place] [address]- 7739 Oct, [facility] [place] [facility] [address] [id number] [place] [address]- 3778 Oct, [facility] [place] [facility] [address] [id number] [place] [address]- 4923 Oct, [facility] [place] [facility] [address] [id number], [place] [address]- 0639 Oct, [facility] [address] [facility] [id number], [place] [address]- 8846 03 Sep, 2010 [facility] [address] [facility] [id number], [place] [address]- 4956 Sep, [facility] [address] [facility] [id number], [place] [address]- 7866 14 Jul, 2010 [facility] [address] [facility] [id number], [place] [address]- 1313 31 Oct, 2009 [facility] [address] [facility] [id number], [place] [address]- 4741 Oct, [facility] [address] [facility] [id number], [place] [address]- 7031 Oct, [facility] [address] [facility] [id number], [place] [address]- 2100 Oct, [facility] [address] [facility] [id number], [place] [address]- 6556 30 Sep, 2009 [facility] [address] [facility] [id number], [place] [address]- 9631 Sep, [facility] [address] [facility] [id number], [place] [address]- 6400 Sep, [facility] [address] [facility] [id number], [place] [address]- 2044 Sep, [facility] [address] [facility] [id number], [place] [address]- 6502 Sep, [facility] [address] [facility] [id number], [place] [address]- 3538 11 Jul, 2009 [facility] [address] [facility] [id number], [place] [address]- 1489 Apr, [facility] [address] [facility] [id number], [place] [address]- 4490 12 Dec, 2008 IMMUNIZATIONS No Known Immunizations SOCIAL HISTORY Never Assessed REASON FOR VISIT Continued attempts to do PA PLAN OF CARE VITAL SIGNS MEDICATIONS Unknown Medications RESULTS No Results PROCEDURES No Known procedures INSTRUCTIONS MEDICATIONS ADMINISTERED No Known Medications MEDICAL (GENERAL) HISTORY Type Description Date Medical History hypertension Medical History hyperlipidemia Medical History diabetes type II Medical History COPD Medical History asthma Surgical History hysterectomy Surgical History arthritis surgery Hospitalization History surgeries
--- OUTSIDE RECORDS SUMMARY | 2018-11-26 15:55 | XMS REPORT ---
Author Author KING FISHMAN Organization 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 Name Role Phone KING FISHMAN Unavailable PROBLEMS Type Condition ICD9-CM Code HPW66-US Code Onset Dates Condition Status SNOMED Code Problem Gastroesophageal reflux disease, esophagitis presence not specified K21.9 Active 843358194 Problem Lumbago with sciatica, right side M54.41 Active [id number] Problem Lumbago with sciatica, left side M54.42 Active 555376988 Problem Iron deficiency anemia due to chronic blood loss D50.0 Active 296602784 Problem Seizures R56.9 Active 89731873 Problem Cigarette nicotine dependence without complication F17.210 Active 09739664 Problem Other chronic pain G89.29 Active 59832678 Problem Chronic obstructive pulmonary disease, unspecified COPD type J44.9 Active 91728301 Problem Pain in right ankle and joints of right foot M25.571 Active 14350916920850 Problem Reactive depression F32.9 Active 79494645 Problem Mixed hyperlipidemia E78.2 Active 561528768 Problem Essential hypertension I10 Active 93831247 Problem Prediabetes R73.03 Active 166308374 Problem Acquired hypothyroidism E03.9 Active [id number] ALLERGIES No Information ENCOUNTERS Encounter Location Date Diagnosis [facility] [id number] [address] Jul, [address] [id number] [place] [address]19- 4345 Jun, Pain in thoracic spine M54.6 [place] [id number] [place] [address] 85682- 6384 16 Jun, 2018 Iron deficiency anemia due to chronic blood loss D50.0 and Hematochezia K92.1 [place] [id number] [place] [address] 22142- 0928 Jun, Gastroenteritis K52.9 and Abnormal RBC indices R71.8 [facility] [address] [address] Jun, [facility] [address] [address]45 Jun, Chest congestion R09.[address] [facility] [address] [address]- 6297 May, Pain in thoracic spine M54.6 [facility] [address] [address]- [address] May, [facility] [address] [address]- [address] May, [facility] [address] [address]- [address] May, [facility] [address] [address]- 5690 May, Acute non-recurrent frontal sinusitis J01.[address] [facility] [id number] [place] [address] 78516- 6071 May, [facility] [id number] [place] [address] 48731- 4515 May, Pain in thoracic spine M54.6 [facility] [id number] [place] [address] 35510- 2546 May, [facility] [address] [address]73- 6215 May, Acute nasopharyngitis J00 [facility] [id number] [place] [address] 18700- 2546 May, [facility] [address] [address]- 9111 May, [facility] [address] [address] Apr, [facility] [id number] [place] [address] 47727- 8903 Apr, [facility] [id number] [place] [address] 21921- 7550 Apr, [facility] [id number] [place] [address] 86086- 6169 Apr, [facility] [id number] [place] [address] 63678- 7700 Apr, Pain in right ankle and joints of right foot M25.571 [place] [id number] [place] [address] 39280- 9493 Apr, [place] [id number] [place] [address] 24227- 3743 Apr, Bronchitis J40 ; Pain in right ankle and joints of right foot M25.571 ; Other chronic pain G89.29 ; Prediabetes R73.03 ; Chronic obstructive pulmonary disease, unspecified COPD type J44.9 and Cigarette nicotine dependence without complication F17.210 [facility] [id number] [place] [address] 58098 -6062 Apr, Seasonal allergic rhinitis, unspecified trigger J30.2 [place] [id number] [place] [address] 57370- 4627 Apr, Onychomycosis B35.1 ; Onychocryptosis L60.0 and DM 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 [place] [id number] [place] [address] 71720- 9572 Apr, Reactive depression F32.9 ; Thoracic myofascial strain, initial encounter S29.019A and Leg cramps R25.2 [facility] [id number] [place] [address] 11383- 7545 March, [place] [id number] [place] [address] 70659- 2926 March, Type 2 diabetes mellitus with hyperglycemia E11.65 [place] [address] 29596- 3164 March, Reactive depression F32.9 [place] [address] 90803- 2214 March, Pain in thoracic spine M54.6 and Other chronic pain G89.29 [place] [address] 62206- 9005 Feb, [place] [address] 98991- 7292 Jan, Reactive depression F32.9 ; Essential hypertension I10 ; Gastroesophageal reflux disease, esophagitis presence not specified K21.9 ; Lumbago with sciatica, left side M54.42 and Lumbago with sciatica, right side M54.41 [place] [address] 64385- 6753 Jan, Reactive depression F32.9 and Pharyngoesophageal dysphagia R13.14 [place] [address] 47165- 6050 Jan, [address] 87926- 9680 Jan, Encounter for immunization Z23 [place] [address] 17941- 0071 Jan, Onychomycosis B35.1 and DM 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 [place] [address] 63507- 9657 Jan, [address] 58282- 8238 Jan, Prediabetes R73.03 [place] [address] 30616- 7289 Dec, [facility] [id number] [place] [address] 78461- 2616 Dec, Essential hypertension I10 ; Mixed hyperlipidemia E78.2 ; Acquired hypothyroidism E03.9 ; Reactive depression F32.[address] [facility] [id number] [place] [address] 70480- 5344 Dec, [facility] [id number] [place] [address] 72249- 4812 Dec, [facility] [id number] [place] [address] 43473- 2666 Dec, DM 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 [facility] [id number] [place] [address] 46510 -9011 Dec, Bruise T14.8XXA ; Type 2 diabetes mellitus with hyperglycemia E11.65 and penitentiary current use of insulin Z79.4 [place] [id number] [place] [address] 78021- 0563 Oct, [place] [id number] [place] [address] 63215- 9133 March, Onychomycosis B35.1 and DM 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 [facility] [id number] [place] [address] 71888- 9117 Jun, [facility] [id number] [place] [address] 10343- 1721 Jun, [facility] [id number] [place] [address] 24293- 9933 Jun, COPD with acute exacerbation 491.21 [facility] [id number] [place] [address] 97431- 0554 Apr, [facility] [id number] [place] [address] 75629- 8922 Feb, [facility] [place] [facility] [address] [id number] [place] [address]- 9152 13 Feb, 2015 [facility] [place] [facility] [address] [id number] [place] [address]- 7499 26 Jan, 2015 [facility] [place] [facility] [address] [id number] [place] [address]- 7822 Jan, [facility] [place] [facility] [address] [id number] [place] [address]- 3596 Jan, [facility] [place] [facility] [address] [id number] [place] [address]- 0794 Jan, [facility] [place] [facility] [address] [id number] [place] [address]- 3712 24 Jan, 2015 [facility] [place] [facility] [address] [id number] [place] [address]- 7880 Jan, [facility] [place] [facility] [address] [id number] [place] [address]- 3023 Jan, [facility] [place] [facility] [address] [id number] [place] [address]- 5112 Jan, [facility] [place] [facility] [address] [id number] [place] [address]- 5294 23 Jan, 2015 [facility] [place] [facility] [address] [id number] [place] [address]- 2554 19 Jan, 2015 [facility] [place] [facility] [address] [id number] [place] [address]- 2278 19 Jan, 2015 [facility] [place] [facility] [address] [id number] [place] [address]- 6626 18 Jan, 2015 [facility] [place] [facility] [address] [id number] [place] [address]- 8322 18 Jan, 2015 [facility] [place] [facility] [address] [id number] [place] [address]- 4306 16 Jan, 2015 [facility] [place] [facility] [address] [id number] [place] [address]- 5809 16 Jan, 2015 [facility] [place] [facility] [address] [id number] [place] [address]- 8762 16 Jan, 2015 [facility] [place] [facility] [address] [id number] [place] [address]- 3151 16 Jan, 2015 [facility] [place] [facility] [address] [id number] [place] [address]- 5997 15 Jan, 2015 [facility] [place] [facility] [address] [id number] [place] [address]- 0300 13 Jan, 2015 [facility] [place] [facility] [address] [id number] [place] [address]- 6563 13 Jan, 2015 [facility] [place] [facility] [address] [id number] [place] [address]- 0826 13 Jan, 2015 [facility] [place] [facility] [address] [id number] [place] [address]- 0713 13 Jan, 2015 [facility] [place] [facility] [address] [id number] [place] [address]- 5872 12 Jan, 2015 [facility] [place] [facility] [address] [id number] [place] [address]- 9888 04 Jan, 2015 [facility] [place] [facility] [address] [id number] [place] [address]- 8992 04 Jan, 2015 [facility] [place] [facility] [address] [id number] [place] [address]- 3827 24 Dec, 2014 [facility] [place] [facility] [address] [id number] [place] [address]- 4553 Dec, [facility] [place] [facility] [address] [id number] [place] [address]- 3990 Dec, [facility] [place] [facility] [address] [id number] [place] [address]- 2345 Dec, [facility] [place] [facility] [address] [id number] [place] [address]- 9667 23 Dec, 2014 [facility] [place] [facility] [address] [id number] [place] [address]- 9644 Dec, 2014 [facility] [place] [facility] [address] [id number] [place] [address]- 0088 Dec, 2014 [facility] [place] [facility] [address] [id number] [place] [address]- 9456 Dec, 2014 [facility] [place] [facility] [address] [id number] [place] [address]- 4799 Dec, 2014 [facility] [place] [facility] [address] [id number] [place] [address]- 5622 Dec, 2014 [facility] [place] [facility] [address] [id number] [place] [address]- 9997 Dec, 2014 [facility] [place] [facility] [address] [id number] [place] [address]- 5144 Dec, [facility] [place] [facility] [address] [id number] [address]- 4485 Nov, [facility] [place] [facility] [address] [id number] [place] [address]- 2920 Nov, [facility] [place] [facility] [address] [id number] [address]- 6508 Nov, [facility] [place] [facility] [address] [id number], [place] [address]- 4349 Nov, [facility] [place] [facility] [address] [id number], [place] [address]- 7927 Nov, [facility] [place] [facility] [address] [id number], [place] [address]- 3627 Nov, [facility] [place] [facility] [address] [id number], [place] [address]- 7919 Nov, [facility] [place] [facility] [address] [id number], [place] [address]- 0530 15 Nov, 2014 [facility] [place] [facility] [address] [id number], [place] [address]- 9225 Nov, [facility] [address] [id number] [place] [address]- 8826 Nov, [facility] [place] [facility] [address] [id number] [place] [address]- 9805 Nov, [facility] [place] [facility] [address] [facility] [id number] [place] [address]- 1951 Nov, [facility] [place] [facility] [address] [id number] [place] [address]- 5645 Oct, [facility] [place] [facility] [address] [id number] [place] [address]- 9732 Oct, [facility] [place] [facility] [address] [id number] [place] [address]- 5093 Oct, [facility] [address] [id number] [place] [address]- 8251 Oct, [facility] [place] [facility] [address] [id number] [place] [address]- 6614 Oct, [facility] [place] [facility] [address] [id number] [place] [address]- 7540 Oct, [facility] [place] [facility] [address] [facility] [id number] [place] [address]- 5147 Oct, [facility] [place] [facility] [address] [id number] [place] [address]- 0009 Oct, [facility] [place] [facility] [address] [id number] [place] [address]- 7529 Oct, [facility] [place] [facility] [address] [id number] [place] [address]- 4845 Oct, [facility] [place] [facility] [address] [id number] [place] [address]- 0811 16 Oct, 2014 [facility] [place] [facility] [address] [id number] [place] [address]- 8186 16 Oct, 2014 [facility] [place] [facility] [address] [id number] [place] [address]- 5929 15 Oct, 2014 [facility] [place] [facility] [address] [id number] [place] 5794 Oct, [facility] [place] [facility] [address] [id number] [place] [address]- 7013 Oct, [facility] [place] [facility] [address] [id number] [place] 2514 Sep, [facility] [place] [facility] [address] [id number] [place] [address]- 5300 Sep, [facility] [place] [facility] [address] [id number] [place] [address]- 7907 Sep, [facility] [place] [facility] [address] [id number] [place] [address]- 0252 Sep, [facility] [place] [facility] [address] [id number] [place] [address]- 4303 Aug, [facility] [place] [facility] [address] [id number] [place] [address]- 2268 Aug, [facility] [place] [facility] [address] [id number] [place] [address]- 3792 Aug, [facility] [place] [facility] [address] [id number] [place] [address]- 1140 Aug, [facility] [place] [facility] [address] [id number] [place] [address]- 6524 Aug, [facility] [place] [facility] [address] [id number] [place] [address]- 5387 Aug, [facility] [place] [facility] [address] [id number] [place] [address]- 7487 Jul, [facility] [place] [facility] [address] [id number] [place] [address]- 9229 29 Jul, 2014 [facility] [place] [facility] [address] [id number] [place] [address]- 0513 Jul, [facility] [place] [facility] [address] [id number] [place] [address]- 8601 Jul, [facility] [place] [facility] [address] [id number] [place] [address]- 0825 Jul, [facility] [place] [facility] [address] [id number] [place] [address]- 8094 Jul, [facility] [place] [facility] [address] [id number] [place] [address]- 5466 Jun, [facility] [place] [facility] [address] [id number] [place] [address]- 1052 Jun, [facility] [place] [facility] [address] [id number] [place] [address]- 4297 Jun, [facility] [place] [facility] [address] [id number] [place] [address]- 2375 Jun, [facility] [place] [facility] [address] [id number] [place] [address]- 5971 Jun, [facility] [place] [facility] [address] [id number] [place] [address]- 4856 Jun, [facility] [place] [facility] [address] [id number] [place] [address]- 5690 Jun, [facility] [place] [facility] [address] [id number] [place] [address]- 2531 May, [facility] [place] [facility] [address] [id number] [place] [address]- 8104 May, [facility] [place] [facility] [address] [id number] [place] [address]- 8623 May, [facility] [place] [facility] [address] [id number] [place] [address]- 4432 May, [facility] [place] [facility] [address] [id number] [place] [address]- 6472 May, [facility] [place] [facility] [address] [id number] [place] [address]- 3115 May, 2013 [facility] [place] [facility] [address] [id number] [place] [address]- 8489 May, 2013 [facility] [place] [facility] [address] [id number] [place] [address]- 5367 May, 2013 [facility] [place] [facility] [address] [id number] [place] [address]- 0520 May, 2013 [facility] [place] [facility] [address] [id number] [place] [address]- 5984 May, 2013 [facility] [place] [facility] [address] [id number] [place] [address]- 6848 May, [facility] [place] [facility] [address] [id number] [place] [address]- 8008 May, [facility] [place] [facility] [address] [id number] [place] [address]- 1820 Apr, [facility] [place] [facility] [address] [id number] [place] [address]- 6277 Apr, [facility] [place] [facility] [address] [id number] [place] [address]- 5563 Apr, [facility] [place] [facility] [address] [id number] [place] [address]- 6009 Apr, [facility] [place] [facility] [address] [id number] [place] [address]- 9597 Apr, [facility] [place] [facility] [address] [id number] [place] [address]- 8416 Apr, [facility] [place] [facility] [address] [id number] [place] [address]- 4449 Apr, [facility] [place] [facility] [address] [id number] [place] [address]- 3203 Apr, [facility] [place] [facility] [address] [id number] [place] [address]- 7092 Apr, [facility] [place] [facility] [address] [id number] [place] [address]- 8819 Apr, [facility] [place] [facility] [address] [id number] [place] [address]- 2122 March, [facility] [place] [facility] [address] [id number] [place] [address]- 0127 March, [facility] [place] [facility] [address] [id number] [place] [address]- 4639 March, [facility] [place] [facility] [address] [id number] [place] [address]- 9744 March, [facility] [place] [facility] [address] [id number] [place] [address]- 1330 March, [facility] [place] [facility] [address] [id number] [place] [address]- 0612 March, [facility] [place] [facility] [address] [id number] [place] [address]- 2693 Feb, [facility] [place] [facility] [address] [id number] [place] [address]- 1810 Feb, [facility] [place] [facility] [address] [id number] [place] [address]- 9596 Feb, [facility] [place] [facility] [address] [id number] [place] [address]- 6752 Feb, [facility] [place] [facility] [address] [id number] [place] [address]- 0865 Feb, [facility] [place] [facility] [address] [id number] [place] [address]- 1700 Feb, [facility] [place] [facility] [address] [id number] [place] [address]- 7740 Feb, [facility] [place] [facility] [address] [id number] [place] [address]- 9633 Feb, [facility] [place] [facility] [address] [id number] [place] [address]- 2546 Feb, [facility] [place] [facility] [address] [id number] [place] 6804 Feb, [facility] [place] [facility] [address] [id number] [place] [address] Jan, [facility] [place] [facility] [address] [id number] [place] [address] Jan, [facility] [place] [facility] [address] [id number] [place] [address] Jan, [facility] [place] [facility] [address] [id number] [place] [address] Jan, [facility] [place] [facility] [address] [id number] [place] [address] Jan, [facility] [place] [facility] [address] [facility] [id number] [place] [address] Jan, [facility] [place] [facility] [address] [id number] [place] [address] Jan, [facility] [place] [facility] [address] [id number] [place] [address] Jan, [facility] [place] [facility] [address] [facility] [id number] [place] [address]- [address]133 Dec, [facility] [place] [facility] [address] [id number] [place] [address] Dec, [facility] [place] [facility] [address] [id number] [place] [address]47 Dec, [facility] [place] [facility] [address] [id number] [place] [address] Dec, [facility] [place] [facility] [address] [id number] [place] [address]27 Dec, [facility] [place] [facility] [address] [facility] [id number] [place] [address] Dec, [facility] [place] [facility] [address] [id number] [place] [address] Dec, [facility] [place] [facility] [address] [id number] [place] [address] Dec, [facility] [place] [facility] [address] [id number] [place] [address] Nov, [facility] [place] [facility] [address] [id number] [place] [address] Nov, [facility] [place] [facility] [address] [id number] [place] [address] 78[address] Nov, [facility] [place] [facility] [address] [id number] [place] [address]- 1766 Nov, [facility] [place] [facility] [address] [id number] [place] [address]- [address]85 Nov, [facility] [place] [facility] [address] [id number] [place] [address] Nov, [facility] [place] [facility] [address] [id number] [place] [address] 31[address] Nov, [facility] [place] [facility] [address] [id number] [place] [address]- [address] Nov, [facility] [place] [facility] [address] [id number] [place] [address] Nov, [facility] [place] [facility] [address] [id number] [place] [address] 3527 Nov, [facility] [place] [facility] [address] [id number] [place] [address] 1614 Nov, [facility] [place] [facility] [address] [id number] [place] [address] 9528 Oct, [facility] [place] [facility] [address] [id number] [place] [address]- 5989 Oct, [facility] [place] [facility] [address] [id number] [place] [address]226 Oct, [facility] [place] [facility] [address] [id number] [place] [address] Oct, [facility] [place] [facility] [address] [id number] [place] [address] Sep, [facility] [place] [facility] [address] [id number] [place] [address] Sep, [facility] [place] [facility] [address] [id number] [place] [address] Sep, [facility] [place] [facility] [address] [id number] [place] [address] Sep, [facility] [place] [facility] [address] [id number] [place] [address] 17[address] Aug, [facility] [place] [facility] [address] [id number] [place] [address]- [address] Aug, [facility] [place] [facility] [address] [id number] [place] [address] Aug, [facility] [place] [facility] [address] [id number] [place] [address] 68[address] Aug, [facility] [place] [facility] [address] [id number] [place] [address]- 6360 Aug, [facility] [place] [facility] [address] [id number] [address] Aug, [facility] [place] [facility] [address] [id number], [place] [address] Aug, [facility] [place] [facility] [address] [id number] [place] [address] Aug, [facility] [place] [facility] [address] [id number], [place] [address] Jul, [facility] [place] [facility] [address] [id number] [place] [address]- [address] Jul, [facility] [place] [facility] [address] [id number] [place] [address] 26 Sep, 2012 [facility] [address] [id number] [place] [address]46 24 Sep, 2012 [facility] [address] [id number] [place] [address] 2546 24 Jul, 2012 [facility] [address] [id number] [place] [address] 2546 23 Sep, 2012 [facility] [address] [id number] [place] [address]- [address] 19 Sep, 2012 [facility] [address] [id number] [place] [address]- [address] 18 Jul, 2012 [facility] [address] [id number] [place] [address]- [address] 17 Jul, 2012 [facility] [address] [id number] [place] [address]- [address]47 16 Jul, 2012 [facility] [address] [id number] [place] [address]- 6531 13 Jul, 2012 [facility] [address] [id number] [place] [address]- 254 13 Jul, 2012 [facility] [address] [id number] [place] [address] 12 Jul, 2012 [facility] [address] [id number] [place] [address] 2549 11 Jul, 2012 [facility] [address] [id number] [place] [address] 2543 04 Jul, 2012 [facility] [place] [facility] [address] [id number] [place] [address] 9[address] 30 Jun, 2013 [facility] [place] [facility] [address] [id number] [place] [address] 2541 Jun, [facility] [address] [id number] [place] [address]- 1433 Jun, [facility] [address] [id number] [place] [address]- 4767 May, [facility] [place] [facility] [address] [id number] [place] [address]- 3310 May, [facility] [place] [facility] [address] [id number] [place] [address]- 0826 May, [facility] [place] [facility] [address] [id number] [place] [address]- 7720 May, [facility] [place] [facility] [address] [id number] [place] [address]- 0106 Apr, [facility] [place] [facility] [address] [id number] [place] [address]- 4007 Apr, [facility] [place] [facility] [address] [id number] [place] [address]- 6475 Apr, [facility] [place] [facility] [address] [id number] [place] [address]- 9692 Apr, [facility] [place] [facility] [address] [id number] [place] [address]- 1413 March, [facility] [place] [facility] [address] [id number] [place] [address]- 5810 March, [facility] [place] [facility] [address] [id number] [place] [address]- 6647 March, [facility] [place] [facility] [address] [id number] [place] [address]- 8359 Feb, [facility] [place] [facility] [address] [id number] [place] [address]- 7571 Feb, [facility] [place] [facility] [address] [id number] [place] [address]- 3236 Jan, [facility] [place] [facility] [address] [id number] [place] [address]- 3728 Jan, [facility] [place] [facility] [address] [id number], [place] [address]- 2[address] Jan, [facility] [address] [id number] [place] [address]- 0458 Jan, [facility] [address] [id number] [place] [address]- 1286 Jan, [facility] [address] [id number] [place] [address]- 7136 Dec, [facility] [address] [id number] [place] [address]- 1769 Dec, [facility] [address] [id number] [place] [address]- 8328 Dec, [facility] [address] [id number] [place] [address]- 5446 Dec, [facility] [address] [id number] [place] [address]- 3406 Dec, [facility] [address] [id number] [place] [address]- 1381 Dec, [facility] [address] [id number] [address]- 3317 Dec, [facility] [address] [facility] [id number] [place] [address]- 0892 Dec, [facility] [address] [id number] [place] [address]- 6988 Nov, [facility] [address] [id number] [place] [address] 254 Nov, [facility] [place] [facility] [address] [id number] [place] [address]- 2887 Nov, [facility] [address] [id number] [place] [address]- 3396 Nov, [facility] [address] [facility] [id number] [place] [address]- 0389 Nov, [facility] [place] [facility] [address] [id number] [place] [address]- 2041 Nov, [facility] [place] [facility] [address] [id number] [place] [address]- 7351 Nov, [facility] [place] [facility] [address] [id number] [place] [address]- 5634 Oct, [facility] [place] [facility] [address] [id number] [place] [address]- 5653 Oct, [facility] [place] [facility] [address] [id number] [place] [address]- 8671 Oct, [facility] [place] [facility] [address] [id number] [place] [address]- 6815 Oct, [facility] [place] [facility] [address] [id number] [place] [address]- 3878 Oct, [facility] [place] [facility] [address] [id number] [place] [address]- 7477 Oct, [facility] [place] [facility] [address] [id number] [place] [address]- 7427 Oct, [facility] [place] [facility] [address] [id number] [place] [address]- 8569 Oct, [facility] [place] [facility] [address] [id number], [place] [address]- 1181 Sep, [facility] [place] [facility] [address] [id number], [place] [address]- 2978 Sep, [facility] [place] [facility] [address] [id number] [place] [address]- 5911 Sep, [facility] [place] [facility] [address] [id number] [place] [address]- 4569 Sep, [facility] [place] [facility] [address] [id number] [place] [address]- 6010 Sep, [facility] [place] [facility] [address] [id number], [place] [address]- 6479 Sep, [facility] [place] [facility] [address] [id number] [place] [address]- 9577 Sep, [facility] [place] [facility] [address] [id number] [place] [address]- 2504 Sep, [facility] [place] [facility] [address] [facility] [id number] [place] [address]- 7843 Sep, [facility] [place] [facility] [address] [id number] [place] [address]- 2021 Sep, [facility] [place] [facility] [address] [facility] [id number] [place] [address], [place] [address]- 2084 Sep, [facility] [place] [facility] [address] [facility] [id number] [place] [address]- 3278 Sep, [facility] [place] [facility] [id number] [address]- 8068 Sep, [facility] [place] [facility] [address] [facility] [id number] [place] [address]- 6469 Sep, [facility] [place] [facility] [address] [id number] [place] [address]- 1791 Sep, [facility] [place] [facility] [address] [id number] [place] [address]- 4595 Sep, [facility] [place] [facility] [address] [facility] [id number], [place] [address]- 3727 Sep, [facility] [place] [facility] [address] [facility] [id number], [place] [address]- 8514 Sep, [facility] [place] [facility] [address] [facility] [id number] [place] [address]- 1437 Sep, [facility] [place] [facility] [address] [facility] [id number] [place] [address]- 6624 Sep, [facility] [place] [facility] [address] [id number] [place] [address]- 0499 Aug, [facility] [place] [facility] [address] [id number] [place] [address]- 7612 31 Aug, 2011 [facility] [place] [facility] [address] [id number] [place] [address]- 0651 29 Aug, 2011 [facility] [place] [facility] [address] [id number] [place] [address]- 6573 27 Aug, 2011 [facility] [place] [facility] [address] [id number] [place] [address]- 9152 27 Aug, 2011 [facility] [place] [facility] [address] [id number] [place] [address]- 8142 18 Aug, 2011 [facility] [place] [facility] [address] [id number] [place] [address]- 7695 18 Aug, 2012 [facility] [place] [facility] [address] [id number] [place] [address]- 4598 17 Aug, 2012 [facility] [place] [facility] [address] [id number] [place] [address]- 4050 16 Aug, 2012 [facility] [place] [facility] [address] [id number] [place] [address]- 1587 16 Aug, 2012 [facility] [place] [facility] [address] [id number] [place] [address]- 6086 15 Aug, 2012 [facility] [place] [facility] [address] [id number] [place] [address]- 4530 09 Aug, 2012 [facility] [place] [facility] [address] [id number] [place] [address]- 8453 05 Aug, 2012 [facility] [place] [facility] [address] [id number] [place] [address]- 1679 05 Aug, 2012 [facility] [place] [facility] [address] [id number] [place] [address]- 9641 04 Aug, 2012 [facility] [place] [facility] [address] [id number] [place] [address]- 9282 14 Jul, 2012 [facility] [place] [facility] [address] [id number] [place] [address]- 3091 Jul, [facility] [place] [facility] [address] [id number] [place] [address]- 8575 Jun, [facility] [place] [facility] [address] [id number] [place] [address]- 8697 Jun, [facility] [place] [facility] [address] [id number] [place] [address]- 5698 May, [facility] [place] [facility] [address] [id number] [place] [address]- 9230 May, [facility] [place] [facility] [address] [id number] [place] [address]- 1305 May, [facility] [place] [facility] [address] [id number] [place] [address]- 0491 May, [facility] [place] [facility] [address] [id number] [place] [address]- 9643 May, [facility] [place] [facility] [address] [id number] [place] [address]- 3008 May, [facility] [place] [facility] [address] [id number] [place] [address]- 5209 Apr, [facility] [place] [facility] [address] [id number] [place] [address]- 4288 Apr, [facility] [place] [facility] [address] [id number] [place] [address]- 6703 March, [facility] [place] [facility] [address] [id number] [place] [address]- 9992 March, [facility] [place] [facility] [address] [id number] [place] [address]- 5997 March, [facility] [place] [facility] [address] [id number] [place] [address]- 9353 March, [facility] [place] [facility] [address] [id number] [place] [address]- 1643 March, [facility] [place] [facility] [address] [id number] [place] [address]- 9013 March, [facility] [address] [id number] [place] [address]- 7396 Feb, [facility] [place] [facility] [address] [id number] [place] [address]- 0986 Feb, [facility] [address] [id number] [place] [address]- 2376 Feb, [facility] [place] [facility] [address] [id number] [place] [address]- 5966 Feb, [facility] [place] [facility] [address] [id number] [place] [address]- 2744 Feb, [facility] [place] [facility] [address] [id number] [place] [address]- 1123 Feb, [facility] [address] [id number] [place] [address]- 6819 Feb, [facility] [place] [facility] [address] [id number] [place] [address]- 8203 Feb, [facility] [place] [facility] [address] [id number] [place] [address]- 2057 Feb, [facility] [address] [id number] [place] [address]- 4269 Jan, [facility] [place] [facility] [address] [id number] [place] [address]- 8097 Jan, [facility] [place] [facility] [address] [id number] [place] [address]- 0746 Jan, [facility] [place] [facility] [address] [id number] [place] [address]- 5165 Jan, [facility] [place] [facility] [address] [id number] [place] [address]- 6836 Jan, [facility] [place] [facility] [address] [id number] [place] [address]- 7380 Jan, [facility] [place] [facility] [address] [id number] [place] [address]- 7338 14 Jan, 2012 [facility] [place] [facility] [address] [id number] [place] [address]- 3119 Jan, [facility] [place] [facility] [address] [id number] [place] [address]76 Jan, [facility] [place] [facility] [address] [id number] [place] [address]- 4672 08 Jan, 2012 [facility] [place] [facility] [address] [id number] [place] [address]- 1470 07 Jan, 2012 [facility] [place] [facility] [address] [id number] [place] [address]- 9478 06 Jan, 2012 [facility] [place] [facility] [address] [id number] [place] [address]- 8524 Jan, [facility] [place] [facility] [address] [id number] [place] [address]- 8060 Jan, [facility] [place] [facility] [address] [id number] [place] [address]- 4712 Dec, [facility] [place] [facility] [address] [id number] [place] [address]- 8726 Dec, [facility] [place] [facility] [address] [id number] [place] [address]- 5018 Dec, [facility] [place] [facility] [address] [id number] [place] [address]- 2827 23 Dec, 2011 [facility] [place] [facility] [address] [id number] [place] [address]- 0564 16 Dec, 2011 [facility] [place] [facility] [address] [id number] [place] [address]- 2766 08 Dec, 2011 [facility] [place] [facility] [address] [id number] [place] [address]- 8835 08 Dec, 2011 [facility] [place] [facility] [address] [id number] [place] [address]- 3125 07 Dec, 2011 [facility] [address] [id number] [place] [address]- 2936 Dec, [facility] [address] [id number] [place] [address]- 4496 Nov, [facility] [address] [id number] [place] [address]- 2930 Nov, [facility] [address] [id number] [place] [address]- 3216 Nov, [facility] [address] [id number] [place] [address]- 3231 Nov, [facility] [address] [id number] [place] [address]- 3212 Oct, [facility] [address] [id number] [place] [address]- 9037 Oct, [facility] [address] [id number] [place] [address]- 0799 Oct, [facility] [address] [id number] [place] [address]- 3922 Oct, [facility] [address] [id number] [place] [address]- 1777 Oct, [facility] [address] [id number] [place] [address]- 7136 Oct, [facility] [address] [id number] [place] [address]- 6383 Oct, [facility] [place] [facility] [address] [id number] [place] [address]- 2687 Sep, [facility] [place] [facility] [address] [id number] [place] [address]- 3813 Sep, [facility] [address] [id number] [place] [address]- 1789 Sep, [facility] [place] [facility] [address] [id number] [place] [address]- 4818 Sep, [facility] [place] [facility] [address] [id number] [place] 9819 Sep, [facility] [place] [facility] [address] [id number] [place] [address]- 8126 Sep, [facility] [place] [facility] [address] [id number] [place] [address]- 8161 Sep, [facility] [place] [facility] [address] [id number] [place] [address]- 3122 Sep, [facility] [place] [facility] [address] [id number] [place] [address]- 8407 Sep, [facility] [place] [facility] [address] [id number] [place] [address]- 2486 Aug, [facility] [place] [facility] [address] [id number] [place] [address]- 2753 Aug, [facility] [place] [facility] [address] [id number] [place] [address]- 3505 Aug, [facility] [place] [facility] [address] [id number] [place] [address]- 3952 May, [facility] [place] [facility] [address] [id number] [place] [address]- 8654 Nov, [facility] [place] [facility] [address] [id number] [place] [address]- 7472 Oct, [facility] [place] [facility] [address] [id number] [place] [address]- 2222 Oct, [facility] [place] [facility] [address] [id number] [place] [address]- 3038 Oct, [facility] [place] [facility] [address] [id number] [place] [address]- 2374 Oct, [facility] [place] [facility] [address] [id number], [place] [address]- 6101 Oct, [facility] [address] [facility] [id number], [place] [address]- 4346 03 Sep, 2010 [facility] [address] [facility] [id number], [place] [address]- 7546 Sep, [facility] [address] [facility] [id number], [place] [address]- 3086 14 Jul, 2010 [facility] [address] [facility] [id number], [place] [address]- 5505 31 Oct, 2009 [facility] [address] [facility] [id number], [place] [address]- 1564 Oct, [facility] [address] [facility] [id number], [place] [address]- 9320 Oct, [facility] [address] [facility] [id number], [place] [address]- 3992 Oct, [facility] [address] [facility] [id number], [place] [address]- 5816 30 Sep, 2009 [facility] [address] [facility] [id number], [place] [address]- 0873 Sep, [facility] [address] [facility] [id number], [place] [address]- 6547 Sep, [facility] [address] [facility] [id number], [place] [address]- 5259 Sep, [facility] [address] [facility] [id number], [place] [address]- 4575 Sep, [facility] [address] [facility] [id number], [place] [address]- 3709 11 Jul, 2009 [facility] [address] [facility] [id number], [place] [address]- 4148 Apr, [facility] [address] [facility] [id number], [place] [address]- 4210 12 Dec, 2008 IMMUNIZATIONS No Known Immunizations SOCIAL HISTORY Never Assessed REASON FOR VISIT Prior Authorization Approved PLAN OF CARE VITAL SIGNS MEDICATIONS Unknown Medications RESULTS No Results PROCEDURES No Known procedures INSTRUCTIONS MEDICATIONS ADMINISTERED No Known Medications MEDICAL (GENERAL) HISTORY Type Description Date Medical History hypertension Medical History hyperlipidemia Medical History diabetes type II Medical History COPD Medical History asthma Surgical History hysterectomy Surgical History arthritis surgery Hospitalization History surgeries
--- OUTSIDE RECORDS SUMMARY | 2018-11-26 15:56 | XMS REPORT ---
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 Name Role Phone CORBY MANJARREZIN Unavailable PROBLEMS Type Condition ICD9-CM Code IPX28-JG Code Onset Dates Condition Status SNOMED Code Problem Gastroesophageal reflux disease, esophagitis presence not specified K21.9 Active 163170962 Problem Lumbago with sciatica, right side M54.41 Active [id number] Problem Lumbago with sciatica, left side M54.42 Active 911462746 Problem Iron deficiency anemia due to chronic blood loss D50.0 Active 545577647 Problem Seizures R56.9 Active 10798387 Problem Cigarette nicotine dependence without complication F17.210 Active 30752829 Problem Other chronic pain G89.29 Active 70771770 Problem Chronic obstructive pulmonary disease, unspecified COPD type J44.9 Active 43065343 Problem Pain in right ankle and joints of right foot M25.571 Active 60397566511018 Problem Reactive depression F32.9 Active 23252272 Problem Mixed hyperlipidemia E78.2 Active 447769733 Problem Essential hypertension I10 Active 99024290 Problem Prediabetes R73.03 Active 696508119 Problem Acquired hypothyroidism E03.9 Active [id number] ALLERGIES No Information ENCOUNTERS Encounter Location Date Diagnosis [facility] [id number] [address] Jul, [facility] [id number] [place] [address] 11613- 4028 Jun, Pain in thoracic spine M54.6 [facility] [address] [address] 16 Jun, 2018 Iron deficiency anemia due to chronic blood loss D50.0 and Hematochezia K92.1 [facility] [id number] [place] [address] 36282- 5168 Jun, Gastroenteritis K52.9 and Abnormal RBC indices R71.8 [facility] [address] [address]- [address] Jun, [facility] [address] [address] 2549 Jun, Chest congestion R09.89 and Seizures R56.9 [facility] [address] 85140- 1186 May, Pain in thoracic spine M54.6 [facility] [address] 8[address]34- 7586 May, [facility] [address] 87568- 3363 May, [facility] [address] 70094- 5564 May, [facility] [address] 09595- 2861 May, Acute non-recurrent frontal sinusitis J01.10 and Dermatitis L30.9 [facility] [id number] [place] [address] 14404- 1999 May, [facility] [id number] [place] [address] 16670- 9053 May, Pain in thoracic spine M54.6 [facility] [id number] [place] [address] 77081- 2546 May, [facility] [address] 40110- 0454 May, Acute nasopharyngitis J00 [facility] [id number] [place] [address] 21825- 2546 May, [facility] [address] 12909- 4441 May, [facility] [address] [address] 97[address] Apr, [facility] [id number] [place] [address] 15656- 9970 Apr, [facility] [id number] [place] [address] 05294- 6517 Apr, [facility] [id number] [place] [address] 46888- 7608 Apr, [facility] [id number] [place] [address] 80761- 3185 Apr, Pain in right ankle and joints of right foot M25.571 [facility] [id number] [place] [address] 57616- 6732 Apr, [facility] [id number] [place] [address] 23666- 8768 Apr, Bronchitis J40 ; Pain in right ankle and joints of right foot M25.571 ; Other chronic pain G89.29 ; Prediabetes R73.03 ; Chronic obstructive pulmonary disease, unspecified COPD type J44.9 and Cigarette nicotine dependence without complication F17.210 [facility] [id number] [place] [address] 57244 -7466 Apr, Seasonal allergic rhinitis, unspecified trigger J30.2 [facility] [id number] [place] [address] 64004- 5123 Apr, Onychomycosis B35.1 ; Onychocryptosis L60.0 and DM 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 [facility] [id number] [place] [address] 33586- 8740 Apr, Reactive depression F32.9 ; Thoracic myofascial strain, initial encounter S29.019A and Leg cramps R25.2 [facility] [id number] [place] [address] 42299- 9774 March, [facility] [id number] [place] [address] 14694- 9475 March, Type 2 diabetes mellitus with hyperglycemia E11.65 [facility] [address] 25759- 1369 March, Reactive depression F32.9 [facility] [address] 24194- 2760 March, Pain in thoracic spine M54.6 and Other chronic pain G89.29 [facility] [address] 14131- 3649 Feb, [facility] [address] 42150- 3958 Jan, Reactive depression F32.9 ; Essential hypertension I10 ; Gastroesophageal reflux disease, esophagitis presence not specified K21.9 ; Lumbago with sciatica, left side M54.42 and Lumbago with sciatica, right side M54.41 [facility] [address] 21287- 0219 Jan, Reactive depression F32.9 and Pharyngoesophageal dysphagia R13.14 [facility] [address] 64362- 0768 Jan, [address] 6[address]44- 3641 Jan, Encounter for immunization Z23 [facility] [address] 33695- 5170 Jan, Onychomycosis B35.1 and DM 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 [facility] [address] 16849- 7450 Jan, [address] 86057- 7664 Jan, Prediabetes R73.03 [facility] [address] 08148- 0491 Dec, [facility] [id number] [place] [address] 34979- 0107 Dec, Essential hypertension I10 ; Mixed hyperlipidemia E78.2 ; Acquired hypothyroidism E03.9 ; Reactive depression F32.9 and Prediabetes R73.03 [facility] [id number] [place] [address] 97984- 2148 Dec, [facility] [id number] [place] [address] 90300- 7641 Dec, [facility] [id number] [place] [address] 12324- 4724 Dec, DM 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 [facility] [id number] [place] [address] 40565 -0397 Dec, Bruise T14.8XXA ; Type 2 diabetes mellitus with hyperglycemia E11.65 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 [facility] [id number] [place] [address] 75224- 2842 Oct, [facility] [id number] [place] [address] 38302- 3549 March, Onychomycosis B35.1 and DM 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 [facility] [id number] [place] [address] 85417- 8887 Jun, [facility] [id number] [place] [address] 83144- 2317 Jun, [facility] [id number] [place] [address] 93220- 1432 Jun, COPD with acute exacerbation 491.21 [facility] [id number] [place] [address] 56725- 6958 Apr, [facility] [id number] [place] [address] 70923- 8478 Feb, [facility] [place] [facility] [address] [id number] [place] [address]- 9971 13 Feb, 2015 [facility] [place] [facility] [address] [id number] [place] [address]- 0637 26 Jan, 2015 [facility] [place] [facility] [address] [id number] [place] [address]- 9804 Jan, [facility] [place] [facility] [address] [id number] [place] [address]- 6620 Jan, [facility] [place] [facility] [address] [id number] [place] [address]- 5787 Jan, [facility] [place] [facility] [address] [id number] [place] [address]- 4441 24 Jan, 2015 [facility] [place] [facility] [address] [id number] [place] [address]- 0192 Jan, [facility] [place] [facility] [address] [id number] [place] [address]- 5838 Jan, [facility] [place] [facility] [address] [id number] [place] [address]- 8408 Jan, [facility] [place] [facility] [address] [id number] [place] [address]- 5926 23 Jan, 2015 [facility] [place] [facility] [address] [id number] [place] [address]- 3620 19 Jan, 2015 [facility] [place] [facility] [address] [id number] [place] [address]- 9340 19 Jan, 2015 [facility] [place] [facility] [address] [id number] [place] [address]- 9704 18 Jan, 2015 [facility] [place] [facility] [address] [id number] [place] [address]- 2126 18 Jan, 2015 [facility] [place] [facility] [address] [id number] [place] [address]- 2771 16 Jan, 2015 [facility] [place] [facility] [address] [id number] [place] [address]- 1630 16 Jan, 2015 [facility] [place] [facility] [address] [id number] [place] [address]- 1568 16 Jan, 2015 [facility] [place] [facility] [address] [id number] [place] [address]- 3389 16 Jan, 2015 [facility] [place] [facility] [address] [id number] [place] [address]- 4013 15 Jan, 2015 [facility] [place] [facility] [address] [id number] [place] [address]- 8261 13 Jan, 2015 [facility] [place] [facility] [address] [id number] [place] [address]- 0335 13 Jan, 2015 [facility] [place] [facility] [address] [id number] [place] [address]- 6303 13 Jan, 2015 [facility] [place] [facility] [address] [id number] [place] [address]- 3655 13 Jan, 2015 [facility] [place] [facility] [address] [id number] [place] [address]- 0073 12 Jan, 2015 [facility] [place] [facility] [address] [id number] [place] [address]- 2382 04 Jan, 2015 [facility] [place] [facility] [address] [id number] [place] [address]- 2342 04 Jan, 2015 [facility] [place] [facility] [address] [id number] [place] [address]- 8285 24 Dec, 2014 [facility] [place] [facility] [address] [id number] [place] [address]- 1477 Dec, [facility] [place] [facility] [address] [id number] [place] [address]- 4245 Dec, [facility] [place] [facility] [address] [id number] [place] [address]- 0119 Dec, [facility] [place] [facility] [address] [id number] [place] [address]- 3750 23 Dec, 2014 [facility] [place] [facility] [address] [id number] [place] [address]- 2375 Dec, 2014 [facility] [place] [facility] [address] [id number] [place] [address]- 2119 Dec, 2014 [facility] [place] [facility] [address] [id number] [place] [address]- 4248 Dec, 2014 [facility] [place] [facility] [address] [id number] [place] [address]- 0232 Dec, 2014 [facility] [place] [facility] [address] [id number] [place] [address]- 6637 Dec, 2014 [facility] [place] [facility] [address] [id number] [place] [address]- 4125 Dec, 2014 [facility] [place] [facility] [address] [id number] [place] [address]- 3104 Dec, [facility] [place] [facility] [address] [id number] [address]- 7905 Nov, [facility] [place] [facility] [address] [id number] [place] [address]- 3039 Nov, [facility] [place] [facility] [address] [id number] [address]- 8121 Nov, [facility] [place] [facility] [address] [id number] [address]- 1624 Nov, [facility] [place] [facility] [address] [id number] [address]- 0970 Nov, [facility] [place] [facility] [address] [id number] [address]- 8348 Nov, [facility] [place] [facility] [address] [id number] [address]- 1110 Nov, [facility] [place] [facility] [address] [id number] [address]- 6587 15 Nov, 2014 [facility] [place] [facility] [address] [id number] [address]- 1831 Nov, [facility] [address] [id number] [place] [address]- 4341 Nov, [facility] [place] [facility] [address] [id number] [place] [address]- 7221 Nov, [facility] [place] [facility] [address] [facility] [id number] [place] [address]- 5400 Nov, [facility] [place] [facility] [address] [id number] [place] [address]- 8751 Oct, [facility] [place] [facility] [address] [id number] [place] [address]- 1553 Oct, [facility] [place] [facility] [address] [id number] [place] [address]- 4140 Oct, [facility] [address] [id number] [place] [address]- 3858 Oct, [facility] [place] [facility] [address] [id number] [place] [address]- 5026 Oct, [facility] [place] [facility] [address] [id number] [place] [address]- 8480 Oct, [facility] [place] [facility] [address] [facility] [id number] [place] [address]- 4329 Oct, [facility] [place] [facility] [address] [id number] [place] [address]- 7561 Oct, [facility] [place] [facility] [address] [id number] [place] [address]- 9111 Oct, [facility] [place] [facility] [address] [id number] [place] [address]- 7275 Oct, [facility] [place] [facility] [address] [id number] [place] [address]- 9869 16 Oct, 2014 [facility] [place] [facility] [address] [id number] [place] [address]- 3419 16 Oct, 2014 [facility] [place] [facility] [address] [id number] [place] [address]- 3920 15 Oct, 2014 [facility] [place] [facility] [address] [id number] [place] 6676 Oct, [facility] [place] [facility] [address] [id number] [place] [address]- 8263 Oct, [facility] [place] [facility] [address] [id number] [place] 6048 Sep, [facility] [place] [facility] [address] [id number] [place] [address]- 6864 Sep, [facility] [place] [facility] [address] [id number] [place] [address]- 5388 Sep, [facility] [place] [facility] [address] [id number] [place] [address]- 8617 Sep, [facility] [place] [facility] [address] [id number] [place] [address]- 4760 Aug, [facility] [place] [facility] [address] [id number] [place] [address]- 8439 Aug, [facility] [place] [facility] [address] [id number] [place] [address]- 8393 Aug, [facility] [place] [facility] [address] [id number] [place] [address]- 1236 Aug, [facility] [place] [facility] [address] [id number] [place] [address]- 6779 Aug, [facility] [place] [facility] [address] [id number] [place] [address]- 8049 Aug, [facility] [place] [facility] [address] [id number] [place] [address]- 0361 Jul, [facility] [place] [facility] [address] [id number] [place] [address]- 3536 29 Jul, 2014 [facility] [place] [facility] [address] [id number] [place] [address]- 2226 Jul, [facility] [place] [facility] [address] [id number] [place] [address]- 8494 Jul, [facility] [place] [facility] [address] [id number] [place] [address]- 1324 Jul, [facility] [place] [facility] [address] [id number] [place] [address]- 7183 Jul, [facility] [place] [facility] [address] [id number] [place] [address]- 0534 Jun, [facility] [place] [facility] [address] [id number] [place] [address]- 3668 Jun, [facility] [place] [facility] [address] [id number] [place] [address]- 3923 Jun, [facility] [place] [facility] [address] [id number] [place] [address]- 0673 Jun, [facility] [place] [facility] [address] [id number] [place] [address]- 6502 Jun, [facility] [place] [facility] [address] [id number] [place] [address]- 8803 Jun, [facility] [place] [facility] [address] [id number] [place] [address]- 4996 Jun, [facility] [place] [facility] [address] [id number] [place] [address]- 6441 May, [facility] [place] [facility] [address] [id number] [place] [address]- 2798 May, [facility] [place] [facility] [address] [id number] [place] [address]- 3471 May, [facility] [place] [facility] [address] [id number] [place] [address]- 6977 May, [facility] [place] [facility] [address] [id number] [place] [address]- 1848 May, [facility] [place] [facility] [address] [id number] [place] [address]- 1245 May, 2013 [facility] [place] [facility] [address] [id number] [place] [address]- 9067 May, 2013 [facility] [place] [facility] [address] [id number] [place] [address]- 6569 May, 2013 [facility] [place] [facility] [address] [id number] [place] [address]- 5486 May, 2013 [facility] [place] [facility] [address] [id number] [place] [address]- 8519 May, 2013 [facility] [place] [facility] [address] [id number] [place] [address]- 4117 May, [facility] [place] [facility] [address] [id number] [place] [address]- 4107 May, [facility] [place] [facility] [address] [id number] [place] [address]- 1145 Apr, [facility] [place] [facility] [address] [id number] [place] [address]- 5813 Apr, [facility] [place] [facility] [address] [id number] [place] [address]- 0309 Apr, [facility] [place] [facility] [address] [id number] [place] [address]- 8852 Apr, [facility] [place] [facility] [address] [id number] [place] [address]- 4217 Apr, [facility] [place] [facility] [address] [id number] [place] [address]- 9663 Apr, [facility] [place] [facility] [address] [id number] [place] [address]- 8818 Apr, [facility] [place] [facility] [address] [id number] [place] [address]- 5834 Apr, [facility] [place] [facility] [address] [id number] [place] [address]- 0055 Apr, [facility] [place] [facility] [address] [id number] [place] [address]- 6285 Apr, [facility] [place] [facility] [address] [id number] [place] [address]- 6930 March, [facility] [place] [facility] [address] [id number] [place] [address]- 2028 March, [facility] [place] [facility] [address] [id number] [place] [address]- 0103 March, [facility] [place] [facility] [address] [id number] [place] [address]- 7545 March, [facility] [place] [facility] [address] [id number] [place] [address]- 8809 March, [facility] [place] [facility] [address] [id number] [place] [address]- 5446 March, [facility] [place] [facility] [address] [id number] [place] [address]- 5118 Feb, [facility] [place] [facility] [address] [id number] [place] [address]- 9410 Feb, [facility] [place] [facility] [address] [id number] [place] [address]- 0842 Feb, [facility] [place] [facility] [address] [id number] [place] [address]- 4477 Feb, [facility] [place] [facility] [address] [id number] [place] [address]- 3984 Feb, [facility] [place] [facility] [address] [id number] [place] [address]- 1342 Feb, [facility] [place] [facility] [address] [id number] [place] [address]- 0033 Feb, [facility] [place] [facility] [address] [id number] [place] [address]- 6505 Feb, [facility] [place] [facility] [address] [id number] [place] [address]- 2546 Feb, [facility] [place] [facility] [address] [id number] [place] 3198 Feb, [facility] [place] [facility] [address] [id number] [place] [address] Jan, [facility] [place] [facility] [address] [id number] [place] [address] Jan, [facility] [place] [facility] [address] [id number] [place] [address] Jan, [facility] [place] [facility] [address] [id number] [place] [address] Jan, [facility] [place] [facility] [address] [id number] [place] [address] Jan, [facility] [place] [facility] [address] [facility] [id number] [place] [address] Jan, [facility] [place] [facility] [address] [id number] [place] [address] Jan, [facility] [place] [facility] [address] [id number] [place] [address] Jan, [facility] [place] [facility] [address] [facility] [id number] [place] [address] Dec, [facility] [place] [facility] [address] [id number] [place] [address] Dec, [facility] [place] [facility] [address] [id number] [place] [address] Dec, [facility] [place] [facility] [address] [id number] [place] [address] Dec, [facility] [place] [facility] [address] [id number] [place] [address] Dec, [facility] [place] [facility] [address] [facility] [id number] [place] [address] Dec, [facility] [place] [facility] [address] [id number] [place] [address] Dec, [facility] [place] [facility] [address] [id number] [place] [address] Dec, [facility] [place] [facility] [address] [id number] [place] [address] Nov, [facility] [place] [facility] [address] [id number] [place] [address] Nov, [facility] [place] [facility] [address] [id number] [place] [address] Nov, [facility] [place] [facility] [address] [id number] [place] [address] Nov, [facility] [place] [facility] [address] [id number] [place] [address] Nov, [facility] [place] [facility] [address] [id number] [place] [address] Nov, [facility] [place] [facility] [address] [id number] [place] [address] Nov, [facility] [place] [facility] [address] [id number] [place] [address]- [address] Nov, [facility] [place] [facility] [address] [id number] [place] [address] Nov, [facility] [place] [facility] [address] [id number] [place] [address] Nov, [facility] [place] [facility] [address] [id number] [place] [address] Nov, [facility] [place] [facility] [address] [id number] [place] [address] Oct, [facility] [place] [facility] [address] [id number] [place] [address] Oct, [facility] [place] [facility] [address] [id number] [place] [address] Oct, [facility] [place] [facility] [address] [id number] [place] [address] Oct, [facility] [place] [facility] [address] [id number] [place] [address] Sep, [facility] [place] [facility] [address] [id number] [place] [address] Sep, [facility] [place] [facility] [address] [id number] [place] [address] Sep, [facility] [place] [facility] [address] [id number] [place] [address] Sep, [facility] [place] [facility] [address] [id number] [place] [address] Aug, [facility] [place] [facility] [address] [id number] [place] [address] Aug, [facility] [place] [facility] [address] [id number] [place] [address] Aug, [facility] [place] [facility] [address] [id number] [place] [address] Aug, [facility] [place] [facility] [address] [id number] [place] [address]- [address] Aug, [facility] [place] [facility] [address] [id number] [address] Aug, [facility] [place] [facility] [address] [id number] [address] Aug, [facility] [place] [facility] [address] [id number] [place] [address] Aug, [facility] [place] [facility] [address] [id number] [address] Jul, [facility] [place] [facility] [address] [id number] [place] [address] Jul, [facility] [place] [facility] [address] [id number] [place] [address]47 26 Sep, 2012 [facility] [address] [id number] [place] [address]46 24 Sep, 2012 [facility] [address] [id number] [place] [address] 2546 24 Jul, 2012 [facility] [address] [id number] [place] [address] 2546 23 Sep, 2012 [facility] [address] [id number] [place] [address]- [address] 19 Sep, 2012 [facility] [address] [id number] [place] [address] 18 Jul, 2012 [facility] [address] [id number] [place] [address] 17 Jul, 2012 [facility] [address] [id number] [place] [address]47 16 Jul, 2012 [facility] [address] [id number] [place] [address] 13 Jul, 2012 [facility] [address] [id number] [place] [address]- 2549 13 Jul, 2012 [facility] [address] [id number] [place] [address] 495[address] 12 Jul, 2012 [facility] [address] [id number] [place] [address] 2543 11 Jul, 2012 [facility] [address] [id number] [place] [address] 254 04 Jul, 2012 [facility] [place] [facility] [address] [id number] [place] [address] 0672 30 Jun, 2013 [facility] [place] [facility] [address] [id number] [place] [address]- 2542 Jun, [facility] [address] [id number] [place] [address] 6445 Jun, [facility] [address] [id number] [place] [address]- 0160 May, [facility] [place] [facility] [address] [id number] [place] [address]- 5610 May, [facility] [place] [facility] [address] [id number] [place] [address]- 7792 May, [facility] [place] [facility] [address] [id number] [place] [address]- 6811 May, [facility] [place] [facility] [address] [id number] [place] [address]- 7205 Apr, [facility] [place] [facility] [address] [id number] [place] [address]- 9098 Apr, [facility] [place] [facility] [address] [id number] [place] [address]- 8470 Apr, [facility] [place] [facility] [address] [id number] [place] [address]- 4828 Apr, [facility] [place] [facility] [address] [id number] [place] [address]- 1510 March, [facility] [place] [facility] [address] [id number] [place] [address]- 7966 March, [facility] [place] [facility] [address] [id number] [place] [address]- 6354 March, [facility] [place] [facility] [address] [id number] [place] [address]- 2068 Feb, [facility] [place] [facility] [address] [id number] [place] [address]- 2982 Feb, [facility] [place] [facility] [address] [id number] [place] [address]- 4486 Jan, [facility] [place] [facility] [address] [id number] [place] [address]- 4265 Jan, [facility] [place] [facility] [address] [id number] [address] 70[address] Jan, [facility] [address] [id number] [place] [address]- 8750 Jan, [facility] [address] [id number] [place] [address]- 6646 Jan, [facility] [address] [id number] [place] [address]- 0736 Dec, [facility] [address] [id number] [place] [address]- 8185 Dec, [facility] [address] [id number] [place] [address]- 7977 Dec, [facility] [address] [id number] [place] [address]- 3186 Dec, [facility] [address] [id number] [place] [address]- 7433 Dec, [facility] [address] [id number] [place] [address]- 3316 Dec, [facility] [address] [id number] [address]- 0354 Dec, [facility] [address] [facility] [id number] [place] [address]- 0114 Dec, [facility] [address] [id number] [place] [address]- 9345 Nov, [facility] [address] [id number] [place] [address] 2540 Nov, [facility] [place] [facility] [address] [id number] [place] [address]- 9971 Nov, [facility] [address] [id number] [place] [address]- 7579 Nov, [facility] [address] [facility] [id number] [place] [address]- 5130 Nov, [facility] [place] [facility] [address] [id number] [place] [address]- 3584 Nov, [facility] [place] [facility] [address] [id number] [place] [address]- 4339 Nov, [facility] [place] [facility] [address] [id number] [place] [address]- 6448 Oct, [facility] [place] [facility] [address] [id number] [place] [address]- 4162 Oct, [facility] [place] [facility] [address] [id number] [place] [address]- 2097 Oct, [facility] [place] [facility] [address] [id number] [place] [address]- 4437 Oct, [facility] [place] [facility] [address] [id number] [place] [address]- 3822 Oct, [facility] [place] [facility] [address] [id number] [place] [address]- 0754 Oct, [facility] [place] [facility] [address] [id number] [place] [address]- 8468 Oct, [facility] [place] [facility] [address] [id number] [place] [address]- 5781 Oct, [facility] [place] [facility] [address] [id number] [address]- 6218 Sep, [facility] [place] [facility] [address] [id number] [place] [address]- 7137 Sep, [facility] [place] [facility] [address] [id number] [place] [address]- 4187 Sep, [facility] [place] [facility] [address] [id number] [place] [address]- 3520 Sep, [facility] [place] [facility] [address] [id number] [place] [address]- 6776 Sep, [facility] [place] [facility] [address] [id number] [place] [address]- 6136 Sep, [facility] [place] [facility] [address] [id number] [place] [address]- 4048 Sep, [facility] [place] [facility] [address] [id number] [place] [address]- 4737 Sep, [facility] [place] [facility] [address] [facility] [id number] [place] [address]- 2308 Sep, [facility] [place] [facility] [address] [id number] [place] [address]- 7581 Sep, [facility] [place] [facility] [address] [facility] [id number] [place] [address], [place] [address]- 7078 Sep, [facility] [place] [facility] [address] [facility] [id number] [place] [address]- 6274 Sep, [facility] [place] [facility] [id number] [address]- 4834 Sep, [facility] [place] [facility] [address] [facility] [id number] [place] [address]- 8002 Sep, [facility] [place] [facility] [address] [id number] [address]- 1101 Sep, [facility] [place] [facility] [address] [id number] [address]- 5224 Sep, [facility] [place] [facility] [address] [facility] [id number] [place] [address]- 9635 Sep, [facility] [place] [facility] [address] [facility] [id number] [address]- 0561 Sep, [facility] [place] [facility] [address] [facility] [id number] [place] [address]- 5743 Sep, [facility] [place] [facility] [address] [facility] [id number] [place] [address]- 0491 Sep, [facility] [place] [facility] [address] [id number] [address]- 6552 Aug, [facility] [place] [facility] [address] [id number] [place] [address]- 6786 31 Aug, 2011 [facility] [place] [facility] [address] [id number] [place] [address]- 2697 29 Aug, 2011 [facility] [place] [facility] [address] [id number] [place] [address]- 5315 27 Aug, 2011 [facility] [place] [facility] [address] [id number] [place] [address]- 3100 27 Aug, 2011 [facility] [place] [facility] [address] [id number] [place] [address]- 1022 18 Aug, 2011 [facility] [place] [facility] [address] [id number] [place] [address]- 1072 18 Aug, 2012 [facility] [place] [facility] [address] [id number] [place] [address]- 1809 17 Aug, 2012 [facility] [place] [facility] [address] [id number] [place] [address]- 9742 16 Aug, 2012 [facility] [place] [facility] [address] [id number] [place] [address]- 6783 16 Aug, 2012 [facility] [place] [facility] [address] [id number] [place] [address]- 9178 15 Aug, 2012 [facility] [place] [facility] [address] [id number] [place] [address]- 9030 09 Aug, 2012 [facility] [place] [facility] [address] [id number] [place] [address]- 5512 05 Aug, 2012 [facility] [place] [facility] [address] [id number] [place] [address]- 0521 05 Aug, 2012 [facility] [place] [facility] [address] [id number] [place] [address]- 4078 04 Aug, 2012 [facility] [place] [facility] [address] [id number] [place] [address]- 9965 14 Jul, 2012 [facility] [place] [facility] [address] [id number] [place] [address]- 4055 Jul, [facility] [place] [facility] [address] [id number] [place] [address]- 9709 Jun, [facility] [place] [facility] [address] [id number] [place] [address]- 0048 Jun, [facility] [place] [facility] [address] [id number] [place] [address]- 6083 May, [facility] [place] [facility] [address] [id number] [place] [address]- 0885 May, [facility] [place] [facility] [address] [id number] [place] [address]- 8263 May, [facility] [place] [facility] [address] [id number] [place] [address]- 1829 May, [facility] [place] [facility] [address] [id number] [place] [address]- 5780 May, [facility] [place] [facility] [address] [id number] [place] [address]- 6145 May, [facility] [place] [facility] [address] [id number] [place] [address]- 7796 Apr, [facility] [place] [facility] [address] [id number] [place] [address]- 4727 Apr, [facility] [place] [facility] [address] [id number] [place] [address]- 2646 March, [facility] [place] [facility] [address] [id number] [place] [address]- 2156 March, [facility] [place] [facility] [address] [id number] [place] [address]- 3636 March, [facility] [place] [facility] [address] [id number] [place] [address]- 3499 March, [facility] [place] [facility] [address] [id number] [place] [address]- 8396 March, [facility] [place] [facility] [address] [id number] [place] [address]- 8684 March, [facility] [address] [id number] [place] [address]- 2626 Feb, [facility] [place] [facility] [address] [id number] [place] [address]- 9566 Feb, [facility] [address] [id number] [place] [address]- 9966 Feb, [facility] [place] [facility] [address] [id number] [place] [address]- 4066 Feb, [facility] [place] [facility] [address] [id number] [place] [address]- 0456 Feb, [facility] [place] [facility] [address] [id number] [place] [address]- 7095 Feb, [facility] [address] [id number] [place] [address]- 4645 Feb, [facility] [place] [facility] [address] [id number] [place] [address]- 1161 Feb, [facility] [place] [facility] [address] [id number] [place] [address]- 8281 Feb, [facility] [address] [id number] [place] [address]- 9357 Jan, [facility] [place] [facility] [address] [id number] [place] [address]- 7247 Jan, [facility] [place] [facility] [address] [id number] [place] [address]- 7030 Jan, [facility] [place] [facility] [address] [id number] [place] [address]- 6120 Jan, [facility] [place] [facility] [address] [id number] [place] [address]- 0296 Jan, [facility] [place] [facility] [address] [id number] [place] [address]- 3854 Jan, [facility] [place] [facility] [address] [id number] [place] [address]- 4308 14 Jan, 2012 [facility] [place] [facility] [address] [id number] [place] [address]- 1621 Jan, [facility] [place] [facility] [address] [id number] [place] 1596 Jan, [facility] [place] [facility] [address] [id number] [place] [address]- 1180 08 Jan, 2012 [facility] [place] [facility] [address] [id number] [place] [address]- 5530 07 Jan, 2012 [facility] [place] [facility] [address] [id number] [place] [address]- 2012 06 Jan, 2012 [facility] [place] [facility] [address] [id number] [place] [address]- 1804 Jan, [facility] [place] [facility] [address] [id number] [place] [address]- 7545 Jan, [facility] [place] [facility] [address] [id number] [place] [address]- 2676 Dec, [facility] [place] [facility] [address] [id number] [place] [address]- 6696 Dec, [facility] [place] [facility] [address] [id number] [place] [address]- 4198 Dec, [facility] [place] [facility] [address] [id number] [place] [address]- 7335 23 Dec, 2011 [facility] [place] [facility] [address] [id number] [place] [address]- 4177 16 Dec, 2011 [facility] [place] [facility] [address] [id number] [place] [address]- 7976 08 Dec, 2011 [facility] [place] [facility] [address] [id number] [place] [address]- 1402 08 Dec, 2011 [facility] [place] [facility] [address] [id number] [place] [address]- 2715 07 Dec, 2011 [facility] [address] [id number] [place] [address]- 5106 Dec, [facility] [address] [id number] [place] [address]- 1656 Nov, [facility] [address] [id number] [place] [address]- 6796 Nov, [facility] [address] [id number] [place] [address]- 5646 Nov, [facility] [address] [id number] [place] [address]- 6778 Nov, [facility] [address] [id number] [place] [address]- 7029 Oct, [facility] [address] [id number] [place] [address]- 0802 Oct, [facility] [address] [id number] [place] [address]- 6656 Oct, [facility] [address] [id number] [place] [address]- 8370 Oct, [facility] [address] [id number] [place] [address]- 2741 Oct, [facility] [address] [id number] [place] [address]- 6376 Oct, [facility] [address] [id number] [place] [address]- 3562 Oct, [facility] [place] [facility] [address] [id number] [place] [address]- 7245 Sep, [facility] [place] [facility] [address] [id number] [place] [address]- 3618 Sep, [facility] [address] [id number] [place] [address]- 8022 Sep, [facility] [place] [facility] [address] [id number] [place] [address]- 4071 Sep, [facility] [place] [facility] [address] [id number] [place] 7819 Sep, [facility] [place] [facility] [address] [id number] [place] [address]- 0716 Sep, [facility] [place] [facility] [address] [id number] [place] [address]- 0829 Sep, [facility] [place] [facility] [address] [id number] [place] [address]- 4090 Sep, [facility] [place] [facility] [address] [id number] [place] [address]- 1270 Sep, [facility] [place] [facility] [address] [id number] [place] [address]- 0191 Aug, [facility] [place] [facility] [address] [id number] [place] [address]- 2168 Aug, [facility] [place] [facility] [address] [id number] [place] [address]- 1431 Aug, [facility] [place] [facility] [address] [id number] [place] [address]- 2669 May, [facility] [place] [facility] [address] [id number] [place] [address]- 3041 Nov, [facility] [place] [facility] [address] [id number] [place] [address]- 7729 Oct, [facility] [place] [facility] [address] [id number] [place] [address]- 6659 Oct, [facility] [place] [facility] [address] [id number] [place] [address]- 5551 Oct, [facility] [place] [facility] [address] [id number] [place] [address]- 7554 Oct, [facility] [place] [facility] [address] [id number] [address]- 2307 Oct, [facility] [address] [facility] [id number] [place] [address]- 7816 03 Sep, 2010 [facility] [address] [facility] [id number] [place] [address]- 1696 Sep, [facility] [address] [facility] [id number] [place] [address]- 4566 14 Jul, 2010 [facility] [address] [facility] [id number] [place] [address]- 6897 31 Oct, 2009 [facility] [address] [facility] [id number] [place] [address]- 3974 Oct, [facility] [address] [facility] [id number] [place] [address]- 3682 Oct, [facility] [address] [facility] [id number] [place] [address]- 5633 Oct, [facility] [address] [facility] [id number] [place] [address]- 5505 30 Sep, 2009 [facility] [address] [facility] [id number] [place] [address]- 1898 Sep, [facility] [address] [facility] [id number] [place] [address]- 8426 Sep, [facility] [address] [facility] [id number] [place] [address]- 5174 Sep, [facility] [address] [facility] [id number] [place] [address]- 0210 Sep, [facility] [address] [facility] [id number] [place] [address]- 5440 11 Jul, 2009 [facility] [address] [facility] [id number] [place] [address]- 8200 Apr, [facility] [address] [facility] [id number] [address]- 5432 12 Dec, 2008 IMMUNIZATIONS No Known Immunizations SOCIAL HISTORY Never Assessed REASON FOR VISIT 3 MO F/U. Consult Dr. Manjarrez;Beto RT(R) PLAN OF CARE Activity Details Follow Up 3 Months Reason: VITAL SIGNS Height 67 in 2018-05-07 Blood pressure systolic 126 mmHg 2018-05-07 Blood pressure diastolic 78 mmHg 2018-05-07 MEDICATIONS Unknown Medications RESULTS No Results PROCEDURES No Known procedures INSTRUCTIONS MEDICATIONS ADMINISTERED No Known Medications MEDICAL (GENERAL) HISTORY Type Description Date Medical History hypertension Medical History hyperlipidemia Medical History diabetes type II Medical History COPD Medical History asthma Surgical History hysterectomy Surgical History arthritis surgery Hospitalization History surgeries
--- OUTSIDE RECORDS SUMMARY | 2018-11-26 15:57 | XMS REPORT ---
Author Author KING FISHMAN Organization [facility] Address [address] [place] [address] Care Team Providers Care Viticulture Teacher Name Role Phone KING FISHMAN Unavailable PROBLEMS Type Condition ICD9-CM Code XVS57-EJ Code Onset Dates Condition Status SNOMED Code Problem Gastroesophageal reflux disease, esophagitis presence not specified K21.9 Active 905703777 Problem Lumbago with sciatica, right side M54.41 Active [id number] Problem Lumbago with sciatica, left side M54.42 Active 246689608 Problem Iron deficiency anemia due to chronic blood loss D50.0 Active 647373344 Problem Seizures R56.9 Active 02504943 Problem Cigarette nicotine dependence without complication F17.210 Active 54563534 Problem Other chronic pain G89.29 Active 97913901 Problem Chronic obstructive pulmonary disease, unspecified COPD type J44.9 Active 51767758 Problem Pain in right ankle and joints of right foot M25.571 Active 54738351715626 Problem Reactive depression F32.9 Active 32994713 Problem Mixed hyperlipidemia E78.2 Active 161941936 Problem Essential hypertension I10 Active 28273702 Problem Prediabetes R73.03 Active 724239519 Problem Acquired hypothyroidism E03.9 Active 069686693 ALLERGIES No Information ENCOUNTERS Encounter Location Date Diagnosis [facility] [id number] [address] Jul, [place] [id number] [place] [address] 63842- 2833 Jun, Pain in thoracic spine M54.6 [place] [address] [place] [address] 97512- 7003 Jun, Iron deficiency anemia due to chronic blood loss D50.0 and Hematochezia K92.1 [place] [id number] [place] [address] 76295- 3595 Jun, Gastroenteritis K52.9 and Abnormal RBC indices R71.8 [facility] [address] [address]- [address]686 Jun, [facility] [address] [address] 2548 Jun, Chest congestion R09.89 and Seizures R56.9 [facility] [address] 06884- 2446 May, Pain in thoracic spine M54.6 [facility] [address] [address]70- 7796 May, [facility] [address] [address]29- 2412 May, [facility] [address] 23440- 9750 May, [facility] [address] 95657- 3247 May, Acute non-recurrent frontal sinusitis J01.10 and Dermatitis L30.9 [facility] [id number] [place] [address] 57944- 5437 May, [facility] [id number] [place] [address] 32694- 5392 May, Pain in thoracic spine M54.6 [facility] [id number] [place] [address] 22605- 2546 May, [facility] [address] 97270- 4501 May, Acute nasopharyngitis J00 [facility] [id number] [place] [address] 43051- 2546 May, [facility] [address] 48994- 2847 May, [facility] [address] [address] 5857 Apr, [facility] [id number] [place] [address] 64596- 7368 Apr, [facility] [address] [place] [address] 49477- 6126 Apr, [facility] [id number] [place] [address] 14621- 9725 Apr, [facility] [id number] [place] [address] 44402- 2453 Apr, Pain in right ankle and joints of right foot M25.571 [place] [id number] [place] [address] 62663- 6406 Apr, [place] [id number] [place] [address] 29693- 7074 Apr, Bronchitis J40 ; Pain in right ankle and joints of right foot M25.571 ; Other chronic pain G89.29 ; Prediabetes R73.03 ; Chronic obstructive pulmonary disease, unspecified COPD type J44.9 and Cigarette nicotine dependence without complication F17.210 [facility] [address] [place] [address] 62037 -1672 Apr, Seasonal allergic rhinitis, unspecified trigger J30.2 [place] [id number] [place] [address] 48676- 2192 Apr, Onychomycosis B35.1 ; Onychocryptosis L60.0 and DM 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 [place] [id number] [place] [address] 03434- 2692 Apr, Reactive depression F32.9 ; Thoracic myofascial strain, initial encounter S29.019A and Leg cramps R25.2 [facility] [address] [place] [address] 60488- 6700 March, [place] [id number] [place] [address] 50200- 2511 March, Type 2 diabetes mellitus with hyperglycemia E11.65 [place] [address] 04236- 9352 March, Reactive depression F32.9 [place] [address] 80217- 5923 March, Pain in thoracic spine M54.6 and Other chronic pain G89.29 [place] [address] 69141- 1905 Feb, [place] [address] 94869- 8800 Jan, Reactive depression F32.9 ; Essential hypertension I10 ; Gastroesophageal reflux disease, esophagitis presence not specified K21.9 ; Lumbago with sciatica, left side M54.42 and Lumbago with sciatica, right side M54.41 [place] [address] 10426- 2772 Jan, Reactive depression F32.9 and Pharyngoesophageal dysphagia R13.14 [place] [address] 60983- 9139 Jan, [address] 14414- 8047 Jan, Encounter for immunization Z23 [place] [address] 12422- 5919 Jan, Onychomycosis B35.1 and DM 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 [place] [address] 18094- 1399 Jan, [address] 18240- 5066 Jan, Prediabetes R73.03 [place] [address] 17544- 2444 Dec, [facility] [id number] [place] [address] 94388- 0137 Dec, Essential hypertension I10 ; Mixed hyperlipidemia E78.2 ; Acquired hypothyroidism E03.9 ; Reactive depression F32.9 and Prediabetes R73.03 [facility] [id number] [place] [address] 76523- 3238 Dec, [facility] [id number] [place] [address] 37422- 2262 Dec, [facility] [id number] [place] [address] 31030- 8718 Dec, DM 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 [facility] [id number] [place] [address] 65159 -0363 Dec, Bruise T14.8XXA ; Type 2 diabetes mellitus with hyperglycemia E11.65 and [facility] current use of insulin Z79.4 [place] [id number] [place] [address] 01039- 9045 Oct, [place] [id number] [place] [address] 31305- 0115 March, Onychomycosis B35.1 and DM 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 [facility] [id number] [place] [address] 19935- 9313 Jun, [facility] [id number] [place] [address] 25110- 1492 Jun, [facility] [id number] [place] [address] 40309- 1418 Jun, COPD with acute exacerbation 491.21 [facility] [id number] [place] [address] 71704- 4647 Apr, [facility] [id number] [place] [address] 08279- 5769 Feb, [facility] [place] [facility] [address] [id number] [place] [address]- 5976 13 Feb, 2015 [facility] [place] [facility] [address] [id number] [place] [address]- 0961 26 Jan, 2015 [facility] [place] [facility] [address] [id number] [place] [address]- 9809 Jan, [facility] [place] [facility] [address] [id number] [place] [address]- 3277 Jan, [facility] [place] [facility] [address] [id number] [place] [address]- 8875 Jan, [facility] [place] [facility] [address] [id number] [place] [address]- 2062 24 Jan, 2015 [facility] [place] [facility] [address] [id number] [place] [address]- 4637 Jan, [facility] [place] [facility] [address] [id number] [place] [address]- 4646 Jan, [facility] [place] [facility] [address] [id number] [place] [address]- 6091 Jan, [facility] [place] [facility] [address] [id number] [place] [address]- 0870 23 Jan, 2015 [facility] [place] [facility] [address] [id number] [place] [address]- 0708 19 Jan, 2015 [facility] [place] [facility] [address] [id number] [place] [address]- 4551 19 Jan, 2015 [facility] [place] [facility] [address] [id number] [place] [address]- 1608 18 Jan, 2015 [facility] [place] [facility] [address] [id number] [place] [address]- 4801 18 Jan, 2015 [facility] [place] [facility] [address] [id number] [place] [address]- 4755 16 Jan, 2015 [facility] [place] [facility] [address] [id number] [place] [address]- 3756 16 Jan, 2015 [facility] [place] [facility] [address] [id number] [place] [address]- 6801 16 Jan, 2015 [facility] [place] [facility] [address] [id number] [place] [address]- 2083 16 Jan, 2015 [facility] [place] [facility] [address] [id number] [place] [address]- 4581 15 Jan, 2015 [facility] [place] [facility] [address] [id number] [place] [address]- 5328 13 Jan, 2015 [facility] [place] [facility] [address] [id number] [place] [address]- 0030 13 Jan, 2015 [facility] [place] [facility] [address] [id number] [place] [address]- 7081 13 Jan, 2015 [facility] [place] [facility] [address] [id number] [place] [address]- 6893 13 Jan, 2015 [facility] [place] [facility] [address] [id number] [place] [address]- 5088 12 Jan, 2015 [facility] [place] [facility] [address] [id number] [place] [address]- 3955 04 Jan, 2015 [facility] [place] [facility] [address] [id number] [place] [address]- 2219 04 Jan, 2015 [facility] [place] [facility] [address] [id number] [place] [address]- 2833 24 Dec, 2014 [facility] [place] [facility] [address] [id number] [place] [address]- 4325 Dec, [facility] [place] [facility] [address] [id number] [place] [address]- 9121 Dec, [facility] [place] [facility] [address] [id number] [place] [address]- 9801 Dec, [facility] [place] [facility] [address] [id number] [place] [address]- 9523 23 Dec, 2014 [facility] [place] [facility] [address] [id number] [place] [address]- 1099 Dec, 2014 [facility] [place] [facility] [address] [id number] [place] [address]- 0781 Dec, 2014 [facility] [place] [facility] [address] [id number] [place] [address]- 2075 Dec, 2014 [facility] [place] [facility] [address] [id number] [place] [address]- 1704 Dec, 2014 [facility] [place] [facility] [address] [id number] [place] [address]- 9393 Dec, 2014 [facility] [place] [facility] [address] [id number] [place] [address]- 2530 Dec, 2014 [facility] [place] [facility] [address] [id number] [place] [address]- 0510 Dec, [facility] [place] [facility] [address] [id number], [place] [address]- 5514 Nov, [facility] [place] [facility] [address] [id number] [place] [address]- 6067 Nov, [facility] [place] [facility] [address] [id number], [place] [address]- 4301 Nov, [facility] [place] [facility] [address] [id number], [place] [address]- 8581 Nov, [facility] [place] [facility] [address] [id number], [place] [address]- 6846 Nov, [facility] [place] [facility] [address] [id number], [place] [address]- 3272 Nov, [facility] [place] [facility] [address] [id number], [place] [address]- 3576 Nov, [facility] [place] [facility] [address] [id number], [place] [address]- 0964 15 Nov, 2014 [facility] [place] [facility] [address] [id number], [place] [address]- 5812 Nov, [facility] [address] [id number] [place] [address]- 3819 Nov, [facility] [place] [facility] [address] [id number] [place] [address]- 1454 Nov, [facility] [place] [facility] [address] [facility] [id number] [place] [address]- 4050 Nov, [facility] [place] [facility] [address] [id number] [place] [address]- 4154 Oct, [facility] [place] [facility] [address] [id number] [place] [address]- 6183 Oct, [facility] [place] [facility] [address] [id number] [place] [address]- 3269 Oct, [facility] [address] [id number] [place] [address]- 4393 Oct, [facility] [place] [facility] [address] [id number] [place] [address]- 7911 Oct, [facility] [place] [facility] [address] [id number] [place] [address]- 4468 Oct, [facility] [place] [facility] [address] [facility] [id number] [place] [address]- 6788 Oct, [facility] [place] [facility] [address] [id number] [place] [address]- 6818 Oct, [facility] [place] [facility] [address] [id number] [place] [address]- 8858 Oct, [facility] [place] [facility] [address] [id number] [place] [address]- 1280 Oct, [facility] [place] [facility] [address] [id number] [place] [address]- 8761 16 Oct, 2014 [facility] [place] [facility] [address] [id number] [place] [address]- 4016 16 Oct, 2014 [facility] [place] [facility] [address] [id number] [place] [address]- 3240 15 Oct, 2014 [facility] [place] [facility] [address] [id number] [place] 7482 Oct, [facility] [place] [facility] [address] [id number] [place] [address]- 3496 Oct, [facility] [place] [facility] [address] [id number] [place] 4664 Sep, [facility] [place] [facility] [address] [id number] [place] [address]- 8349 Sep, [facility] [place] [facility] [address] [id number] [place] [address]- 2071 Sep, [facility] [place] [facility] [address] [id number] [place] [address]- 5801 Sep, [facility] [place] [facility] [address] [id number] [place] [address]- 5220 Aug, [facility] [place] [facility] [address] [id number] [place] [address]- 9648 Aug, [facility] [place] [facility] [address] [id number] [place] [address]- 1976 Aug, [facility] [place] [facility] [address] [id number] [place] [address]- 7629 Aug, [facility] [place] [facility] [address] [id number] [place] [address]- 0972 Aug, [facility] [place] [facility] [address] [id number] [place] [address]- 8156 Aug, [facility] [place] [facility] [address] [id number] [place] [address]- 1827 Jul, [facility] [place] [facility] [address] [id number] [place] [address]- 4811 29 Jul, 2014 [facility] [place] [facility] [address] [id number] [place] [address]- 4942 Jul, [facility] [place] [facility] [address] [id number] [place] [address]- 5134 Jul, [facility] [place] [facility] [address] [id number] [place] [address]- 2524 Jul, [facility] [place] [facility] [address] [id number] [place] [address]- 5798 Jul, [facility] [place] [facility] [address] [id number] [place] [address]- 8790 Jun, [facility] [place] [facility] [address] [id number] [place] [address]- 6532 Jun, [facility] [place] [facility] [address] [id number] [place] [address]- 8249 Jun, [facility] [place] [facility] [address] [id number] [place] [address]- 5062 Jun, [facility] [place] [facility] [address] [id number] [place] [address]- 2336 Jun, [facility] [place] [facility] [address] [id number] [place] [address]- 7134 Jun, [facility] [place] [facility] [address] [id number] [place] [address]- 2633 Jun, [facility] [place] [facility] [address] [id number] [place] [address]- 4412 May, [facility] [place] [facility] [address] [id number] [place] [address]- 9254 May, [facility] [place] [facility] [address] [id number] [place] [address]- 1058 May, [facility] [place] [facility] [address] [id number] [place] [address]- 8701 May, [facility] [place] [facility] [address] [id number] [place] [address]- 5435 May, [facility] [place] [facility] [address] [id number] [place] [address]- 4470 May, 2013 [facility] [place] [facility] [address] [id number] [place] [address]- 1939 May, 2013 [facility] [place] [facility] [address] [id number] [place] [address]- 2553 May, 2013 [facility] [place] [facility] [address] [id number] [place] [address]- 9167 May, 2013 [facility] [place] [facility] [address] [id number] [place] [address]- 7906 May, 2013 [facility] [place] [facility] [address] [id number] [place] [address]- 5964 May, [facility] [place] [facility] [address] [id number] [place] [address]- 3388 May, [facility] [place] [facility] [address] [id number] [place] [address]- 3537 Apr, [facility] [place] [facility] [address] [id number] [place] [address]- 2390 Apr, [facility] [place] [facility] [address] [id number] [place] [address]- 0848 Apr, [facility] [place] [facility] [address] [id number] [place] [address]- 1278 Apr, [facility] [place] [facility] [address] [id number] [place] [address]- 5181 Apr, [facility] [place] [facility] [address] [id number] [place] [address]- 6611 Apr, [facility] [place] [facility] [address] [id number] [place] [address]- 6989 Apr, [facility] [place] [facility] [address] [id number] [place] [address]- 9803 Apr, [facility] [place] [facility] [address] [id number] [place] [address]- 8862 Apr, [facility] [place] [facility] [address] [id number] [place] [address]- 2630 Apr, [facility] [place] [facility] [address] [id number] [place] [address]- 2325 March, [facility] [place] [facility] [address] [id number] [place] [address]- 2566 March, [facility] [place] [facility] [address] [id number] [place] [address]- 4832 March, [facility] [place] [facility] [address] [id number] [place] [address]- 7912 March, [facility] [place] [facility] [address] [id number] [place] [address]- 2434 March, [facility] [place] [facility] [address] [id number] [place] [address]- 7360 March, [facility] [place] [facility] [address] [id number] [place] [address]- 0951 Feb, [facility] [place] [facility] [address] [id number] [place] [address]- 4399 Feb, [facility] [place] [facility] [address] [id number] [place] [address]- 4925 Feb, [facility] [place] [facility] [address] [id number] [place] [address]- 4973 Feb, [facility] [place] [facility] [address] [id number] [place] [address] Feb, [facility] [place] [facility] [address] [id number] [place] [address] Feb, [facility] [place] [facility] [address] [id number] [place] [address] Feb, [facility] [place] [facility] [address] [id number] [place] [address] Feb, [facility] [place] [facility] [address] [id number] [place] [address] Feb, [facility] [place] [facility] [address] [id number] [place] [address] Feb, [facility] [place] [facility] [address] [id number] [place] [address] Jan, [facility] [place] [facility] [address] [id number] [place] [address] Jan, [facility] [place] [facility] [address] [id number] [place] [address] Jan, [facility] [place] [facility] [address] [id number] [place] [address] Jan, [facility] [place] [facility] [address] [id number] [place] [address] Jan, [facility] [place] [facility] [address] [facility] [id number] [place] [address] Jan, [facility] [place] [facility] [address] [id number] [place] [address] Jan, [facility] [place] [facility] [address] [id number] [place] [address] Jan, [facility] [place] [facility] [address] [facility] [id number] [place] [address] Dec, [facility] [place] [facility] [address] [id number] [place] [address] Dec, [facility] [place] [facility] [address] [id number] [place] [address] Dec, [facility] [place] [facility] [address] [id number] [place] [address] Dec, [facility] [place] [facility] [address] [id number] [place] [address] Dec, [facility] [place] [facility] [address] [facility] [id number] [place] [address] Dec, [facility] [place] [facility] [address] [id number] [place] [address]- [address] Dec, [facility] [place] [facility] [address] [id number] [place] [address] Dec, [facility] [place] [facility] [address] [id number] [place] [address] Nov, [facility] [place] [facility] [address] [id number] [place] [address] Nov, [facility] [place] [facility] [address] [id number] [place] [address] Nov, [facility] [place] [facility] [address] [id number] [place] [address] Nov, [facility] [place] [facility] [address] [id number] [place] [address] Nov, [facility] [place] [facility] [address] [id number] [place] [address] Nov, [facility] [place] [facility] [address] [id number] [place] [address] Nov, [facility] [place] [facility] [address] [id number] [place] [address] Nov, [facility] [place] [facility] [address] [id number] [place] [address] Nov, [facility] [place] [facility] [address] [id number] [place] [address] Nov, [facility] [place] [facility] [address] [id number] [place] [address] Nov, [facility] [place] [facility] [address] [id number] [place] [address]- [address] Oct, [facility] [place] [facility] [address] [id number] [place] [address] Oct, [facility] [place] [facility] [address] [id number] [place] [address] Oct, [facility] [place] [facility] [address] [id number] [place] [address] Oct, [facility] [place] [facility] [address] [id number] [place] [address] Sep, [facility] [place] [facility] [address] [id number] [place] [address]- [address] Sep, [facility] [place] [facility] [address] [id number] [place] [address]- [address] Sep, [facility] [place] [facility] [address] [id number] [place] [address]- [address] Sep, [facility] [place] [facility] [address] [id number] [place] [address]- [address] Aug, [facility] [place] [facility] [address] [id number] [place] [address]- [address] Aug, [facility] [place] [facility] [address] [id number] [place] [address] Aug, [facility] [place] [facility] [address] [id number] [place] [address]- [address] Aug, [facility] [place] [facility] [address] [id number] [place] [address]- [address] Aug, [facility] [place] [facility] [address] [id number], [place] [address] Aug, [facility] [place] [facility] [address] [id number], [place] [address] Aug, [facility] [place] [facility] [address] [id number] [place] [address] Aug, [facility] [place] [facility] [address] [id number], [place] [address] Jul, [facility] [place] [facility] [address] [id number] [place] [address]- [address] Jul, [facility] [place] [facility] [address] [id number] [place] [address] 26 Sep, 2012 [facility] [address] [id number] [place] [address] 24 Sep, 2012 [facility] [address] [id number] [place] [address] 24 Jul, 2012 [facility] [address] [id number] [place] [address] 23 Sep, 2012 [facility] [address] [id number] [place] [address] 19 Sep, 2012 [facility] [address] [id number] [place] [address] 18 Jul, 2012 [facility] [address] [id number] [place] [address] 6983 17 Jul, 2012 [facility] [address] [id number] [place] [address] 2543 16 Jul, 2012 [facility] [address] [id number] [place] [address] 4801 13 Jul, 2012 [facility] [address] [id number] [place] [address]- 254 13 Jul, 2012 [facility] [address] [id number] [place] [address] 3776 12 Jul, 2012 [facility] [address] [id number] [place] [address] 2542 11 Jul, 2012 [facility] [address] [id number] [place] [address]- 2541 04 Jul, 2012 [facility] [place] [facility] [address] [id number] [place] [address]- 4574 30 Jun, 2013 [facility] [place] [facility] [address] [id number] [place] [address]- 2548 Jun, [facility] [address] [id number] [place] [address]- 3950 Jun, [facility] [address] [id number] [place] [address]- 8262 May, [facility] [place] [facility] [address] [id number] [place] [address]- 2253 May, [facility] [place] [facility] [address] [id number] [place] [address]- 3531 May, [facility] [place] [facility] [address] [id number] [place] [address]- 0320 May, [facility] [place] [facility] [address] [id number] [place] [address]- 6008 Apr, [facility] [place] [facility] [address] [id number] [place] [address]- 6839 Apr, [facility] [place] [facility] [address] [id number] [place] [address]- 6138 Apr, [facility] [place] [facility] [address] [id number] [place] [address]- 3611 Apr, [facility] [place] [facility] [address] [id number] [place] [address]- 4934 March, [facility] [place] [facility] [address] [id number] [place] [address]- 1685 March, [facility] [place] [facility] [address] [id number] [place] [address]- 1214 March, [facility] [place] [facility] [address] [id number] [place] [address]- 0478 Feb, [facility] [place] [facility] [address] [id number] [place] [address]- 1479 Feb, [facility] [place] [facility] [address] [id number] [place] [address]- 4826 Jan, [facility] [place] [facility] [address] [id number] [place] [address]- 2600 Jan, [facility] [place] [facility] [address] [id number], [place] [address] Jan, [facility] [address] [id number] [place] [address]- 5940 Jan, [facility] [address] [id number] [place] [address]- 0556 Jan, [facility] [address] [id number] [place] [address]- 4056 Dec, [facility] [address] [id number] [place] [address]- 9273 Dec, [facility] [address] [id number] [place] [address]- 4700 Dec, [facility] [address] [id number] [place] [address]- 4996 Dec, [facility] [address] [id number] [place] [address]- 9314 Dec, [facility] [address] [id number] [place] [address]- 9785 Dec, [facility] [address] [id number] [address] Dec, [facility] [address] [facility] [id number] [place] [address]- 2159 Dec, [facility] [address] [id number] [place] [address]- 5282 Nov, [facility] [address] [id number] [place] [address] 2542 Nov, [facility] [place] [facility] [address] [id number] [place] [address]- 9428 Nov, [facility] [address] [id number] [place] [address]- 2639 Nov, [facility] [address] [facility] [id number] [place] [address]- 6029 Nov, [facility] [place] [facility] [address] [id number] [place] [address]- 2041 Nov, [facility] [place] [facility] [address] [id number] [place] [address]- 8998 Nov, [facility] [place] [facility] [address] [id number] [place] [address]- 4410 Oct, [facility] [place] [facility] [address] [id number] [place] [address]- 9782 Oct, [facility] [place] [facility] [address] [id number] [place] [address]- 4455 Oct, [facility] [place] [facility] [address] [id number] [place] [address]- 0801 Oct, [facility] [place] [facility] [address] [id number] [place] [address]- 6419 Oct, [facility] [place] [facility] [address] [id number] [place] [address]- 1002 Oct, [facility] [place] [facility] [address] [id number] [place] [address]- 7730 Oct, [facility] [place] [facility] [address] [id number] [place] [address]- 4231 Oct, [facility] [place] [facility] [address] [id number], [place] [address]- 6567 Sep, [facility] [place] [facility] [address] [id number], [place] [address]- 2499 Sep, [facility] [place] [facility] [address] [id number] [place] [address]- 4283 Sep, [facility] [place] [facility] [address] [id number] [place] [address]- 7953 Sep, [facility] [place] [facility] [address] [id number] [place] [address]- 6490 Sep, [facility] [place] [facility] [address] [id number], [place] [address]- 8613 Sep, [facility] [place] [facility] [address] [id number] [place] [address]- 4511 Sep, [facility] [place] [facility] [address] [id number] [place] [address]- 3482 Sep, [facility] [place] [facility] [address] [facility] [id number] [place] [address]- 4810 Sep, [facility] [place] [facility] [address] [id number] [place] [address]- 9726 Sep, [facility] [place] [facility] [address] [facility] [id number] [place] [address], [place] [address]- 1885 Sep, [facility] [place] [facility] [address] [facility] [id number] [place] [address]- 3556 Sep, [facility] [place] [facility] [id number], [place] [address]- 4551 Sep, [facility] [place] [facility] [address] [facility] [id number] [place] [address]- 2197 Sep, [facility] [place] [facility] [address] [id number] [address]- 8509 Sep, [facility] [place] [facility] [address] [id number] [address]- 3350 Sep, [facility] [place] [facility] [address] [facility] [id number], [place] [address]- 9099 Sep, [facility] [place] [facility] [address] [facility] [id number], [place] [address]- 3017 Sep, [facility] [place] [facility] [address] [facility] [id number] [place] [address]- 8579 Sep, [facility] [place] [facility] [address] [facility] [id number] [place] [address]- 2475 Sep, [facility] [place] [facility] [address] [id number] [address]- 2774 Aug, [facility] [place] [facility] [address] [id number] [place] [address]- 7137 31 Aug, 2011 [facility] [place] [facility] [address] [id number] [place] [address]- 4352 29 Aug, 2011 [facility] [place] [facility] [address] [id number] [place] [address]- 6072 27 Aug, 2011 [facility] [place] [facility] [address] [id number] [place] [address]- 2075 27 Aug, 2011 [facility] [place] [facility] [address] [id number] [place] [address]- 0210 18 Aug, 2011 [facility] [place] [facility] [address] [id number] [place] [address]- 0011 18 Aug, 2012 [facility] [place] [facility] [address] [id number] [place] [address]- 4118 17 Aug, 2012 [facility] [place] [facility] [address] [id number] [place] [address]- 3049 16 Aug, 2012 [facility] [place] [facility] [address] [id number] [place] [address]- 9293 16 Aug, 2012 [facility] [place] [facility] [address] [id number] [place] [address]- 7162 15 Aug, 2012 [facility] [place] [facility] [address] [id number] [place] [address]- 0436 09 Aug, 2012 [facility] [place] [facility] [address] [id number] [place] [address]- 5490 05 Aug, 2012 [facility] [place] [facility] [address] [id number] [place] [address]- 2477 05 Aug, 2012 [facility] [place] [facility] [address] [id number] [place] [address]- 0668 04 Aug, 2012 [facility] [place] [facility] [address] [id number] [place] [address]- 0017 14 Jul, 2012 [facility] [place] [facility] [address] [id number] [place] [address]- 0453 Jul, [facility] [place] [facility] [address] [id number] [place] [address]- 1999 Jun, [facility] [place] [facility] [address] [id number] [place] [address]- 1098 Jun, [facility] [place] [facility] [address] [id number] [place] [address]- 4296 May, [facility] [place] [facility] [address] [id number] [place] [address]- 3135 May, [facility] [place] [facility] [address] [id number] [place] [address]- 2285 May, [facility] [place] [facility] [address] [id number] [place] [address]- 2256 May, [facility] [place] [facility] [address] [id number] [place] [address]- 9850 May, [facility] [place] [facility] [address] [id number] [place] [address]- 3346 May, [facility] [place] [facility] [address] [id number] [place] [address]- 8141 Apr, [facility] [place] [facility] [address] [id number] [place] [address]- 1530 Apr, [facility] [place] [facility] [address] [id number] [place] [address]- 2094 March, [facility] [place] [facility] [address] [id number] [place] [address]- 3968 March, [facility] [place] [facility] [address] [id number] [place] [address]- 7297 March, [facility] [place] [facility] [address] [id number] [place] [address]- 1048 March, [facility] [place] [facility] [address] [id number] [place] [address]- 8873 March, [facility] [place] [facility] [address] [id number] [place] [address]- 3580 March, [facility] [address] [id number] [place] [address]- 2596 Feb, [facility] [place] [facility] [address] [id number] [place] [address]- 0626 Feb, [facility] [address] [id number] [place] [address]- 4746 Feb, [facility] [place] [facility] [address] [id number] [place] [address]- 4726 Feb, [facility] [place] [facility] [address] [id number] [place] [address]- 4098 Feb, [facility] [place] [facility] [address] [id number] [place] [address]- 3761 Feb, [facility] [address] [id number] [place] [address]- 7077 Feb, [facility] [place] [facility] [address] [id number] [place] [address]- 9114 Feb, [facility] [place] [facility] [address] [id number] [place] [address]- 4564 Feb, [facility] [address] [id number] [place] [address]- 5396 Jan, [facility] [place] [facility] [address] [id number] [place] [address]- 2234 Jan, [facility] [place] [facility] [address] [id number] [place] [address]- 6880 Jan, [facility] [place] [facility] [address] [id number] [place] [address]- 3686 Jan, [facility] [place] [facility] [address] [id number] [place] [address]- 0506 Jan, [facility] [place] [facility] [address] [id number] [place] [address]- 5017 Jan, [facility] [place] [facility] [address] [id number] [place] [address]- 7068 14 Jan, 2012 [facility] [place] [facility] [address] [id number] [place] [address]- 3344 Jan, [facility] [place] [facility] [address] [id number] [place] [address]776 Jan, [facility] [place] [facility] [address] [id number] [place] [address]- 9613 08 Jan, 2012 [facility] [place] [facility] [address] [id number] [place] [address]- 4263 07 Jan, 2012 [facility] [place] [facility] [address] [id number] [place] [address]- 4081 06 Jan, 2012 [facility] [place] [facility] [address] [id number] [place] [address]- 0815 Jan, [facility] [place] [facility] [address] [id number] [place] [address]- 4819 Jan, [facility] [place] [facility] [address] [id number] [place] [address]- 0568 Dec, [facility] [place] [facility] [address] [id number] [place] [address]- 4001 Dec, [facility] [place] [facility] [address] [id number] [place] [address]- 2100 Dec, [facility] [place] [facility] [address] [id number] [place] [address]- 9807 23 Dec, 2011 [facility] [place] [facility] [address] [id number] [place] [address]- 9008 16 Dec, 2011 [facility] [place] [facility] [address] [id number] [place] [address]- 8716 08 Dec, 2011 [facility] [place] [facility] [address] [id number] [place] [address]- 3269 08 Dec, 2011 [facility] [place] [facility] [address] [id number] [place] [address]- 0480 07 Dec, 2011 [facility] [address] [id number] [place] [address]- 4476 Dec, [facility] [address] [id number] [place] [address]- 6396 Nov, [facility] [address] [id number] [place] [address]- 2543 Nov, [facility] [address] [id number] [place] [address]- 6992 Nov, [facility] [address] [id number] [place] [address]- 4850 Nov, [facility] [address] [id number] [place] [address]- 8111 Oct, [facility] [address] [id number] [place] [address]- 4081 Oct, [facility] [address] [id number] [place] [address]- 2006 Oct, [facility] [address] [id number] [place] [address]- 6495 Oct, [facility] [address] [id number] [place] [address]- 5433 Oct, [facility] [address] [id number] [place] [address]- 5146 Oct, [facility] [address] [id number] [place] [address]- 9670 Oct, [facility] [place] [facility] [address] [id number] [place] [address]- 7513 Sep, [facility] [place] [facility] [address] [id number] [place] [address]- 4373 Sep, [facility] [address] [id number] [place] [address]- 0298 Sep, [facility] [place] [facility] [address] [id number] [place] [address]- 6809 Sep, [facility] [place] [facility] [address] [id number] [place] 5733 Sep, [facility] [place] [facility] [address] [id number] [place] [address]- 1440 Sep, [facility] [place] [facility] [address] [id number] [place] [address]- 8529 Sep, [facility] [place] [facility] [address] [id number] [place] [address]- 2668 Sep, [facility] [place] [facility] [address] [id number] [place] [address]- 0625 Sep, [facility] [place] [facility] [address] [id number] [place] [address]- 1133 Aug, [facility] [place] [facility] [address] [id number] [place] [address]- 8849 Aug, [facility] [place] [facility] [address] [id number] [place] [address]- 3934 Aug, [facility] [place] [facility] [address] [id number] [place] [address]- 9005 May, [facility] [place] [facility] [address] [id number] [place] [address]- 3942 Nov, [facility] [place] [facility] [address] [id number] [place] [address]- 7171 Oct, [facility] [place] [facility] [address] [id number] [place] [address]- 1318 Oct, [facility] [place] [facility] [address] [id number] [place] [address]- 0745 Oct, [facility] [place] [facility] [address] [id number] [place] [address]- 1697 Oct, [facility] [place] [facility] [address] [id number], [place] [address]- 9083 Oct, [facility] [address] [facility] [id number], [place] [address]- 8606 03 Sep, [address] [facility] [address] [facility] [id number], [place] [address]- 5236 Sep, [facility] [address] [facility] [id number], [place] [address]- 7386 14 Jul, [address] [facility] [address] [facility] [id number], [place] [address]- 9681 31 Oct, 2009 [facility] [address] [facility] [id number], [place] [address]- 1228 Oct, [facility] [address] [facility] [id number], [place] [address] Oct, [facility] [address] [facility] [id number], [place] [address] Oct, [facility] [address] [facility] [id number], [place] [address] 30 Sep, 2009 [facility] [address] [facility] [id number], [place] [address] Sep, [facility] [address] [facility] [id number], [place] [address] Sep, [facility] [address] [facility] [id number], [place] [address] Sep, [facility] [address] [facility] [id number], [place] [address] Sep, [facility] [address] [facility] [id number], [place] [address] 11 Jul, 2009 [facility] [address] [facility] [id number], [place] [address] Apr, [facility] [address] [facility] [id number], [place] [address] 12 Dec, 2008 IMMUNIZATIONS No Known Immunizations [...]
--- OUTSIDE RECORDS SUMMARY | 2018-11-26 15:58 | XMS REPORT ---
Author Author KING FISHMAN Organization [facility] Address [address] [place] [address] Care Team Providers Care Registered Nurse Maternal Child Name Role Phone KING FISHMAN Unavailable PROBLEMS Type Condition ICD9-CM Code AQG14-CO Code Onset Dates Condition Status SNOMED Code Problem Gastroesophageal reflux disease, esophagitis presence not specified K21.9 Active 382617417 Problem Lumbago with sciatica, right side M54.41 Active [id number] Problem Lumbago with sciatica, left side M54.42 Active 971637694 Problem Iron deficiency anemia due to chronic blood loss D50.0 Active 869799979 Problem Seizures R56.9 Active 90588125 Problem Cigarette nicotine dependence without complication F17.210 Active 38502434 Problem Other chronic pain G89.29 Active 22661807 Problem Chronic obstructive pulmonary disease, unspecified COPD type J44.9 Active 42196710 Problem Pain in right ankle and joints of right foot M25.571 Active 38865445878012 Problem Reactive depression F32.9 Active 55926164 Problem Mixed hyperlipidemia E78.2 Active 001580145 Problem Essential hypertension I10 Active 03046058 Problem Prediabetes R73.03 Active 293857291 Problem Acquired hypothyroidism E03.9 Active 882404133 ALLERGIES No Information ENCOUNTERS Encounter Location Date Diagnosis [facility] [id number] [address] Jul, [id number] [place] [address] 07095- 8904 Jun, Pain in thoracic spine M54.6 [address] [id number] [place] [address] 10960- 4868 Jun, Iron deficiency anemia due to chronic blood loss D50.0 and Hematochezia K92.1 [place] [id number] [place] [address] 27492- 1779 Jun, Gastroenteritis K52.9 and Abnormal RBC indices R71.8 [facility] [address] [address]- 4256 Jun, [facility] [address] [address] 2549 Jun, Chest congestion R09.89 and Seizures R56.9 [facility] [address] 67523- 4459 May, Pain in thoracic spine M54.6 [facility] [address] 13360- 1816 May, [facility] [address] 13480- 6884 May, [facility] [address] 96086- 9273 May, [facility] [address] 11671- 2336 May, Acute non-recurrent frontal sinusitis J01.10 and Dermatitis L30.9 [facility] [id number] [place] [address] 49059- 7965 May, [facility] [id number] [place] [address] 78624- 2590 May, Pain in thoracic spine M54.6 [facility] [id number] [place] [address] 89431- 2546 May, [facility] [address] 38902- 3962 May, Acute nasopharyngitis J00 [facility] [id number] [place] [address] 19272- 2546 May, [facility] [address] 74559- 8194 May, [facility] [id number] [address] 2550 Apr, [facility] [id number] [place] [address] 74851- 6813 Apr, [facility] [id number] [place] [address] 11530- 1445 Apr, [facility] [id number] [place] [address] 82435- 4355 Apr, [facility] [id number] [place] [address] 87612- 5494 Apr, Pain in right ankle and joints of right foot M25.571 [address] [id number] [place] [address] 56928- 9603 Apr, [place] [id number] [place] [address] 78548- 9075 Apr, Bronchitis J40 ; Pain in right ankle and joints of right foot M25.571 ; Other chronic pain G89.29 ; Prediabetes R73.03 ; Chronic obstructive pulmonary disease, unspecified COPD type J44.9 and Cigarette nicotine dependence without complication F17.210 [facility] [id number] [place] [address] 04259 -5680 Apr, Seasonal allergic rhinitis, unspecified trigger J30.2 [place] [id number] [place] [address] 36397- 6964 Apr, Onychomycosis B35.1 ; Onychocryptosis L60.0 and DM 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 [place] [id number] [place] [address] 93345- 3167 Apr, Reactive depression F32.9 ; Thoracic myofascial strain, initial encounter S29.019A and Leg cramps R25.2 [facility] [id number] [place] [address] 87816- 8235 March, [place] [id number] [place] [address] 04852- 7689 March, Type 2 diabetes mellitus with hyperglycemia E11.65 [place] [address] 27950- 5101 March, Reactive depression F32.9 [place] [address] 92961- 2683 March, Pain in thoracic spine M54.6 and Other chronic pain G89.29 [address] [address] 73408- 7760 Feb, [place] [address] 97029- 3987 Jan, Reactive depression F32.9 ; Essential hypertension I10 ; Gastroesophageal reflux disease, esophagitis presence not specified K21.9 ; Lumbago with sciatica, left side M54.42 and Lumbago with sciatica, right side M54.41 [place] [address] 35119- 1919 Jan, Reactive depression F32.9 and Pharyngoesophageal dysphagia R13.14 [place] [address] 57400- 5996 Jan, [address] 80972- 3361 Jan, Encounter for immunization Z23 [place] [address] 84310- 4031 Jan, Onychomycosis B35.1 and DM 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 [place] [address] 63935- 6420 Jan, [address] 50860- 5986 Jan, Prediabetes R73.03 [place] [address] 83367- 6552 Dec, [facility] [id number] [place] [address] 81336- 7097 Dec, Essential hypertension I10 ; Mixed hyperlipidemia E78.2 ; Acquired hypothyroidism E03.9 ; Reactive depression F32.9 and Prediabetes R73.03 [facility] [id number] [place] [address] 28601- 2792 Dec, [facility] [id number] [place] [address] 86106- 1525 Dec, [facility] [id number] [place] [address] 64178- 6500 Dec, DM 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 [facility] [id number] [place] [address] 14662 -9309 Dec, Bruise T14.8XXA ; Type 2 diabetes mellitus with hyperglycemia E11.65 and senior care current use of insulin Z79.4 [place] [id number] [place] [address] 33577- 2008 Oct, [place] [id number] [place] [address] 91851- 1717 March, Onychomycosis B35.1 and DM 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 [facility] [id number] [place] [address] 97571- 7253 Jun, [facility] [id number] [place] [address] 84339- 9679 Jun, [facility] [id number] [place] [address] 08219- 6322 Jun, COPD with acute exacerbation 491.21 [facility] [id number] [place] [address] 79536- 7742 Apr, [facility] [id number] [place] [address] 74680- 6739 Feb, [facility] [place] [facility] [address] [id number] [place] [address]- 4829 13 Feb, 2015 [facility] [place] [facility] [address] [id number] [place] [address]- 6361 26 Jan, 2015 [facility] [place] [facility] [address] [id number] [place] [address]- 9735 Jan, [facility] [place] [facility] [address] [id number] [place] [address]- 9840 Jan, [facility] [place] [facility] [address] [id number] [place] [address]- 8232 Jan, [facility] [place] [facility] [address] [id number] [place] [address]- 3351 24 Jan, 2015 [facility] [place] [facility] [address] [id number] [place] [address]- 7238 Jan, [facility] [place] [facility] [address] [id number] [place] [address]- 4868 Jan, [facility] [place] [facility] [address] [id number] [place] [address]- 7844 Jan, [facility] [place] [facility] [address] [id number] [place] [address]- 2297 23 Jan, 2015 [facility] [place] [facility] [address] [id number] [place] [address]- 0895 19 Jan, 2015 [facility] [place] [facility] [address] [id number] [place] [address]- 1046 19 Jan, 2015 [facility] [place] [facility] [address] [id number] [place] [address]- 2213 18 Jan, 2015 [facility] [place] [facility] [address] [id number] [place] [address]- 0264 18 Jan, 2015 [facility] [place] [facility] [address] [id number] [place] [address]- 4177 16 Jan, 2015 [facility] [place] [facility] [address] [id number] [place] [address]- 7895 16 Jan, 2015 [facility] [place] [facility] [address] [id number] [place] [address]- 2487 16 Jan, 2015 [facility] [place] [facility] [address] [id number] [place] [address]- 4971 16 Jan, 2015 [facility] [place] [facility] [address] [id number] [place] [address]- 8762 15 Jan, 2015 [facility] [place] [facility] [address] [id number] [place] [address]- 3315 13 Jan, 2015 [facility] [place] [facility] [address] [id number] [place] [address]- 6156 13 Jan, 2015 [facility] [place] [facility] [address] [id number] [place] [address]- 0377 13 Jan, 2015 [facility] [place] [facility] [address] [id number] [place] [address]- 2235 13 Jan, 2015 [facility] [place] [facility] [address] [id number] [place] [address]- 4995 12 Jan, 2015 [facility] [place] [facility] [address] [id number] [place] [address]- 9383 04 Jan, 2015 [facility] [place] [facility] [address] [id number] [place] [address]- 7096 04 Jan, 2015 [facility] [place] [facility] [address] [id number] [place] [address]- 2787 24 Dec, 2014 [facility] [place] [facility] [address] [id number] [place] [address]- 9582 Dec, [facility] [place] [facility] [address] [id number] [place] [address]- 7306 Dec, [facility] [place] [facility] [address] [id number] [place] [address]- 5348 Dec, [facility] [place] [facility] [address] [id number] [place] [address]- 4536 23 Dec, 2014 [facility] [place] [facility] [address] [id number] [place] [address]- 6553 Dec, 2014 [facility] [place] [facility] [address] [id number] [place] [address]- 2223 Dec, 2014 [facility] [place] [facility] [address] [id number] [place] [address]- 5994 Dec, 2014 [facility] [place] [facility] [address] [id number] [place] [address]- 2284 Dec, 2014 [facility] [place] [facility] [address] [id number] [place] [address]- 2985 Dec, 2014 [facility] [place] [facility] [address] [id number] [place] [address]- 8344 Dec, 2014 [facility] [place] [facility] [address] [id number] [place] [address]- 4824 Dec, [facility] [place] [facility] [address] [id number] [address]- 1284 Nov, [facility] [place] [facility] [address] [id number] [place] [address]- 6713 Nov, [facility] [place] [facility] [address] [id number] [address]- 9043 Nov, [facility] [place] [facility] [address] [id number] [address]- 5441 Nov, [facility] [place] [facility] [address] [id number] [address]- 5520 Nov, [facility] [place] [facility] [address] [id number] [address]- 0469 Nov, [facility] [place] [facility] [address] [id number] [address]- 4011 Nov, [facility] [place] [facility] [address] [id number] [address]- 6488 15 Nov, 2014 [facility] [place] [facility] [address] [id number] [address]- 7915 Nov, [facility] [address] [id number] [place] [address]- 0232 Nov, [facility] [place] [facility] [address] [id number] [place] [address]- 6802 Nov, [facility] [place] [facility] [address] [facility] [id number] [place] [address]- 6065 Nov, [facility] [place] [facility] [address] [id number] [place] [address]- 1278 Oct, [facility] [place] [facility] [address] [id number] [place] [address]- 9473 Oct, [facility] [place] [facility] [address] [id number] [place] [address]- 7604 Oct, [facility] [address] [id number] [place] [address]- 8558 Oct, [facility] [place] [facility] [address] [id number] [place] [address]- 9743 Oct, [facility] [place] [facility] [address] [id number] [place] [address]- 5828 Oct, [facility] [place] [facility] [address] [facility] [id number] [place] [address]- 0330 Oct, [facility] [place] [facility] [address] [id number] [place] [address]- 0300 Oct, [facility] [place] [facility] [address] [id number] [place] [address]- 6362 Oct, [facility] [place] [facility] [address] [id number] [place] [address]- 2285 Oct, [facility] [place] [facility] [address] [id number] [place] [address]- 0538 16 Oct, 2014 [facility] [place] [facility] [address] [id number] [place] [address]- 8318 16 Oct, 2014 [facility] [place] [facility] [address] [id number] [place] [address]- 1587 15 Oct, 2014 [facility] [place] [facility] [address] [id number] [place] 9893 Oct, [facility] [place] [facility] [address] [id number] [place] [address]- 6135 Oct, [facility] [place] [facility] [address] [id number] [place] 8336 Sep, [facility] [place] [facility] [address] [id number] [place] [address]- 0643 Sep, [facility] [place] [facility] [address] [id number] [place] [address]- 2266 Sep, [facility] [place] [facility] [address] [id number] [place] [address]- 4734 Sep, [facility] [place] [facility] [address] [id number] [place] [address]- 9844 Aug, [facility] [place] [facility] [address] [id number] [place] [address]- 2802 Aug, [facility] [place] [facility] [address] [id number] [place] [address]- 0725 Aug, [facility] [place] [facility] [address] [id number] [place] [address]- 7278 Aug, [facility] [place] [facility] [address] [id number] [place] [address]- 0583 Aug, [facility] [place] [facility] [address] [id number] [place] [address]- 5507 Aug, [facility] [place] [facility] [address] [id number] [place] [address]- 2383 Jul, [facility] [place] [facility] [address] [id number] [place] [address]- 3671 29 Jul, 2014 [facility] [place] [facility] [address] [id number] [place] [address]- 9910 Jul, [facility] [place] [facility] [address] [id number] [place] [address]- 0108 Jul, [facility] [place] [facility] [address] [id number] [place] [address]- 4467 Jul, [facility] [place] [facility] [address] [id number] [place] [address]- 0305 Jul, [facility] [place] [facility] [address] [id number] [place] [address]- 2629 Jun, [facility] [place] [facility] [address] [id number] [place] [address]- 3030 Jun, [facility] [place] [facility] [address] [id number] [place] [address]- 3713 Jun, [facility] [place] [facility] [address] [id number] [place] [address]- 6944 Jun, [facility] [place] [facility] [address] [id number] [place] [address]- 2185 Jun, [facility] [place] [facility] [address] [id number] [place] [address]- 0534 Jun, [facility] [place] [facility] [address] [id number] [place] [address]- 4113 Jun, [facility] [place] [facility] [address] [id number] [place] [address]- 4461 May, [facility] [place] [facility] [address] [id number] [place] [address]- 3460 May, [facility] [place] [facility] [address] [id number] [place] [address]- 4067 May, [facility] [place] [facility] [address] [id number] [place] [address]- 8314 May, [facility] [place] [facility] [address] [id number] [place] [address]- 7854 May, [facility] [place] [facility] [address] [id number] [place] [address]- 9566 May, 2013 [facility] [place] [facility] [address] [id number] [place] [address]- 0309 May, 2013 [facility] [place] [facility] [address] [id number] [place] [address]- 8312 May, 2013 [facility] [place] [facility] [address] [id number] [place] [address]- 8452 May, 2013 [facility] [place] [facility] [address] [id number] [place] [address]- 1953 May, 2013 [facility] [place] [facility] [address] [id number] [place] [address]- 5576 May, [facility] [place] [facility] [address] [id number] [place] [address]- 1880 May, [facility] [place] [facility] [address] [id number] [place] [address]- 7741 Apr, [facility] [place] [facility] [address] [id number] [place] [address]- 1813 Apr, [facility] [place] [facility] [address] [id number] [place] [address]- 1594 Apr, [facility] [place] [facility] [address] [id number] [place] [address]- 8449 Apr, [facility] [place] [facility] [address] [id number] [place] [address]- 6452 Apr, [facility] [place] [facility] [address] [id number] [place] [address]- 7612 Apr, [facility] [place] [facility] [address] [id number] [place] [address]- 2914 Apr, [facility] [place] [facility] [address] [id number] [place] [address]- 0448 Apr, [facility] [place] [facility] [address] [id number] [place] [address]- 4595 Apr, [facility] [place] [facility] [address] [id number] [place] [address]- 5909 Apr, [facility] [place] [facility] [address] [id number] [place] [address]- 2529 March, [facility] [place] [facility] [address] [id number] [place] [address]- 9993 March, [facility] [place] [facility] [address] [id number] [place] [address]- 9508 March, [facility] [place] [facility] [address] [id number] [place] [address]- 8580 March, [facility] [place] [facility] [address] [id number] [place] [address]- 6109 March, [facility] [place] [facility] [address] [id number] [place] [address]- 8969 March, [facility] [place] [facility] [address] [id number] [place] [address]- 2296 Feb, [facility] [place] [facility] [address] [id number] [place] [address]- 7515 Feb, [facility] [place] [facility] [address] [id number] [place] [address]- 8011 Feb, [facility] [place] [facility] [address] [id number] [place] [address]- 3836 Feb, [facility] [place] [facility] [address] [id number] [place] [address]- 2510 Feb, [facility] [place] [facility] [address] [id number] [place] [address]- 3853 Feb, [facility] [place] [facility] [address] [id number] [place] [address]- 4408 Feb, [facility] [place] [facility] [address] [id number] [place] [address]- 2577 Feb, [facility] [place] [facility] [address] [id number] [place] [address]- 2546 Feb, [facility] [place] [facility] [address] [id number] [place] 0046 Feb, [facility] [place] [facility] [address] [id number] [place] [address]- 9924 Jan, [facility] [place] [facility] [address] [id number] [place] 0577 Jan, [facility] [place] [facility] [address] [id number] [place] [address]- 1803 Jan, [facility] [place] [facility] [address] [id number] [place] [address]- 7539 Jan, [facility] [place] [facility] [address] [id number] [place] [address]- 5876 Jan, [facility] [place] [facility] [address] [facility] [id number] [place] [address]- 9126 Jan, [facility] [place] [facility] [address] [id number] [place] [address]- 7322 Jan, [facility] [place] [facility] [address] [id number] [place] [address]- 3963 Jan, [facility] [place] [facility] [address] [facility] [id number] [place] [address]47 Dec, [facility] [place] [facility] [address] [id number] [place] [address] Dec, [facility] [place] [facility] [address] [id number] [place] [address] Dec, [facility] [place] [facility] [address] [id number] [place] [address] Dec, [facility] [place] [facility] [address] [id number] [place] [address] Dec, [facility] [place] [facility] [address] [facility] [id number] [place] [address] Dec, [facility] [place] [facility] [address] [id number] [place] [address] Dec, [facility] [place] [facility] [address] [id number] [place] [address] Dec, [facility] [place] [facility] [address] [id number] [place] [address] Nov, [facility] [place] [facility] [address] [id number] [place] [address]75 Nov, [facility] [place] [facility] [address] [id number] [place] [address] Nov, [facility] [place] [facility] [address] [id number] [place] [address] 94[address] Nov, [facility] [place] [facility] [address] [id number] [place] [address] Nov, [facility] [place] [facility] [address] [id number] [place] [address] 39[address] Nov, [facility] [place] [facility] [address] [id number] [place] [address] Nov, [facility] [place] [facility] [address] [id number] [place] [address] Nov, [facility] [place] [facility] [address] [id number] [place] [address] Nov, [facility] [place] [facility] [address] [id number] [place] [address] Nov, [facility] [place] [facility] [address] [id number] [place] [address] Nov, [facility] [place] [facility] [address] [id number] [place] [address] Oct, [facility] [place] [facility] [address] [id number] [place] [address]- 3967 Oct, [facility] [place] [facility] [address] [id number] [place] [address] Oct, [facility] [place] [facility] [address] [id number] [place] [address] 8588 Oct, [facility] [place] [facility] [address] [id number] [place] [address] Sep, [facility] [place] [facility] [address] [id number] [place] [address]- [address] Sep, [facility] [place] [facility] [address] [id number] [place] [address]- [address] Sep, [facility] [place] [facility] [address] [id number] [place] [address]- [address] Sep, [facility] [place] [facility] [address] [id number] [place] [address] Aug, [facility] [place] [facility] [address] [id number] [place] [address] Aug, [facility] [place] [facility] [address] [id number] [place] [address] Aug, [facility] [place] [facility] [address] [id number] [place] [address] Aug, [facility] [place] [facility] [address] [id number] [place] [address]- 8904 Aug, [facility] [place] [facility] [address] [id number] [address] Aug, [facility] [place] [facility] [address] [id number] [address] Aug, [facility] [place] [facility] [address] [id number] [place] [address] Aug, [facility] [place] [facility] [address] [id number] [address]- [address] Jul, [facility] [place] [facility] [address] [id number] [place] [address] Jul, [facility] [place] [facility] [address] [id number] [place] [address] 2544 26 Sep, 2012 [facility] [address] [id number] [place] [address]46 24 Sep, 2012 [facility] [address] [id number] [place] [address] 2546 24 Jul, 2012 [facility] [address] [id number] [place] [address] 2546 23 Sep, 2012 [facility] [address] [id number] [place] [address]- [address] 19 Sep, 2012 [facility] [address] [id number] [place] [address] 18 Jul, 2012 [facility] [address] [id number] [place] [address]335 17 Jul, 2012 [facility] [address] [id number] [place] [address]- [address]47 16 Jul, 2012 [facility] [address] [id number] [place] [address]- [address]17 13 Jul, 2012 [facility] [address] [id number] [place] [address]- [address] 13 Jul, 2012 [facility] [address] [id number] [place] [address] 12 Jul, 2012 [facility] [facility] [address] [id number] [place] [address] 2541 11 Jul, 2012 [facility] [address] [id number] [place] [address]45 04 Jul, 2012 [facility] [place] [facility] [address] [id number] [place] [address] 7095 30 Jun, 2013 [facility] [place] [facility] [address] [id number] [place] [address] 2543 Jun, [facility] [address] [id number] [place] [address] 9218 Jun, [facility] [address] [id number] [place] [address] 2563 May, [facility] [place] [facility] [address] [id number] [place] [address]- 3603 May, [facility] [place] [facility] [address] [id number] [place] [address] 9603 May, [facility] [place] [facility] [address] [id number] [place] [address]- 6344 May, [facility] [place] [facility] [address] [id number] [place] [address]- 3463 Apr, [facility] [place] [facility] [address] [id number] [place] [address] 8136 Apr, [facility] [place] [facility] [address] [id number] [place] [address]- 0979 Apr, [facility] [place] [facility] [address] [id number] [place] [address]- 3724 Apr, [facility] [place] [facility] [address] [id number] [place] [address] 5[address] March, [facility] [place] [facility] [address] [id number] [place] [address]- 9819 March, [facility] [place] [facility] [address] [id number] [place] [address]- 6204 March, [facility] [place] [facility] [address] [id number] [place] [address]- 5330 Feb, [facility] [place] [facility] [address] [id number] [place] [address]- 7042 Feb, [facility] [place] [facility] [address] [id number] [place] [address]- 0246 Jan, [facility] [place] [facility] [address] [id number] [place] [address]- 9108 Jan, [facility] [place] [facility] [address] [id number] [address] 30[address] Jan, [facility] [address] [id number] [place] [address] 8122 Jan, [facility] [address] [id number] [place] [address]- 7196 Jan, [facility] [address] [id number] [place] [address]- 1436 Dec, [facility] [address] [id number] [place] [address]- 0281 Dec, [facility] [address] [id number] [place] [address]- 1005 Dec, [facility] [address] [id number] [place] [address]- 4006 Dec, [facility] [address] [id number] [place] [address]- 9786 Dec, [facility] [address] [id number] [place] [address]- 1455 Dec, [facility] [address] [id number] [place] [address]- 1458 Dec, [facility] [address] [facility] [id number] [place] [address]- 6747 Dec, [facility] [address] [id number] [place] [address]- 8521 Nov, [facility] [address] [id number] [place] [address] 2547 Nov, [facility] [place] [facility] [address] [id number] [place] [address]- 6186 Nov, [facility] [address] [id number] [place] [address]- 0243 Nov, [facility] [address] [facility] [id number] [place] [address]- 6435 Nov, [facility] [place] [facility] [address] [id number] [place] [address]- 4253 Nov, [facility] [place] [facility] [address] [id number] [place] [address]- 5709 Nov, [facility] [place] [facility] [address] [id number] [place] [address]- 1789 Oct, [facility] [place] [facility] [address] [id number] [place] [address]- 9643 Oct, [facility] [place] [facility] [address] [id number] [place] [address]- 9270 Oct, [facility] [place] [facility] [address] [id number] [place] [address]- 1494 Oct, [facility] [place] [facility] [address] [id number] [place] [address]- 0467 Oct, [facility] [place] [facility] [address] [id number] [place] [address]- 6860 Oct, [facility] [place] [facility] [address] [id number] [place] [address]- 0936 Oct, [facility] [place] [facility] [address] [id number] [place] [address]- 3489 Oct, [facility] [place] [facility] [address] [id number] [address]- 8895 Sep, [facility] [place] [facility] [address] [id number] [address]- 3263 Sep, [facility] [place] [facility] [address] [id number] [place] [address]- 8576 Sep, [facility] [place] [facility] [address] [id number] [place] [address]- 5198 Sep, [facility] [place] [facility] [address] [id number] [place] [address]- 5671 Sep, [facility] [place] [facility] [address] [id number] [address]- 0278 Sep, [facility] [place] [facility] [address] [id number] [place] [address]- 7779 Sep, [facility] [place] [facility] [address] [id number] [place] [address]- 2689 Sep, [facility] [place] [facility] [address] [facility] [id number] [place] [address]- 6904 Sep, [facility] [place] [facility] [address] [id number] [place] [address]- 0457 Sep, [facility] [place] [facility] [address] [facility] [id number] [place] [address], [place] [address]- 9864 Sep, [facility] [place] [facility] [address] [facility] [id number] [place] [address]- 8635 Sep, [facility] [place] [facility] [id number] [address]- 0037 Sep, [facility] [place] [facility] [address] [facility] [id number] [place] [address]- 7828 Sep, [facility] [place] [facility] [address] [id number] [place] [address]- 9957 Sep, [facility] [place] [facility] [address] [id number] [place] [address]- 5749 Sep, [facility] [place] [facility] [address] [facility] [id number] [address]- 0406 Sep, [facility] [place] [facility] [address] [facility] [id number] [address]- 8534 Sep, [facility] [place] [facility] [address] [facility] [id number] [place] [address]- 4618 Sep, [facility] [place] [facility] [address] [facility] [id number] [place] [address]- 8922 Sep, [facility] [place] [facility] [address] [id number] [place] [address]- 1954 Aug, [facility] [place] [facility] [address] [id number] [place] [address]- 9102 31 Aug, 2011 [facility] [place] [facility] [address] [id number] [place] [address]- 7941 29 Aug, 2011 [facility] [place] [facility] [address] [id number] [place] [address]- 1701 27 Aug, 2011 [facility] [place] [facility] [address] [id number] [place] [address]- 1914 27 Aug, 2011 [facility] [place] [facility] [address] [id number] [place] [address]- 4039 18 Aug, 2011 [facility] [place] [facility] [address] [id number] [place] [address]- 2109 18 Aug, 2012 [facility] [place] [facility] [address] [id number] [place] [address]- 0539 17 Aug, 2012 [facility] [place] [facility] [address] [id number] [place] [address]- 7647 16 Aug, 2012 [facility] [place] [facility] [address] [id number] [place] [address]- 3630 16 Aug, 2012 [facility] [place] [facility] [address] [id number] [place] [address]- 3837 15 Aug, 2012 [facility] [place] [facility] [address] [id number] [place] [address]- 3179 09 Aug, 2012 [facility] [place] [facility] [address] [id number] [place] [address]- 5838 05 Aug, 2012 [facility] [place] [facility] [address] [id number] [place] [address]- 9068 05 Aug, 2012 [facility] [place] [facility] [address] [id number] [place] [address]- 4175 04 Aug, 2012 [facility] [place] [facility] [address] [id number] [place] [address]- 4353 14 Jul, 2012 [facility] [place] [facility] [address] [id number] [place] [address]- 0726 Jul, [facility] [place] [facility] [address] [id number] [place] [address]- 6045 Jun, [facility] [place] [facility] [address] [id number] [place] [address]- 7783 Jun, [facility] [place] [facility] [address] [id number] [place] [address]- 4265 May, [facility] [place] [facility] [address] [id number] [place] [address]- 2628 May, [facility] [place] [facility] [address] [id number] [place] [address]- 5798 May, [facility] [place] [facility] [address] [id number] [place] [address]- 1552 May, [facility] [place] [facility] [address] [id number] [place] [address]- 9362 May, [facility] [place] [facility] [address] [id number] [place] [address]- 9257 May, [facility] [place] [facility] [address] [id number] [place] [address]- 2225 Apr, [facility] [place] [facility] [address] [id number] [place] [address]- 7796 Apr, [facility] [place] [facility] [address] [id number] [place] [address]- 8379 March, [facility] [place] [facility] [address] [id number] [place] [address]- 4690 March, [facility] [place] [facility] [address] [id number] [place] [address]- 9266 March, [facility] [place] [facility] [address] [id number] [place] [address]- 1404 March, [facility] [place] [facility] [address] [id number] [place] [address]- 0708 March, [facility] [place] [facility] [address] [id number] [place] [address]- 4897 March, [facility] [address] [id number] [place] [address]- 0006 Feb, [facility] [place] [facility] [address] [id number] [place] [address]- 0986 Feb, [facility] [address] [id number] [place] [address]- 6586 Feb, [facility] [place] [facility] [address] [id number] [place] [address]- 8806 Feb, [facility] [place] [facility] [address] [id number] [place] [address]- 2944 Feb, [facility] [place] [facility] [address] [id number] [place] [address]- 3375 Feb, [facility] [address] [id number] [place] [address]- 0640 Feb, [facility] [place] [facility] [address] [id number] [place] [address]- 9841 Feb, [facility] [place] [facility] [address] [id number] [place] [address]- 3278 Feb, [facility] [address] [id number] [place] [address]- 5553 Jan, [facility] [place] [facility] [address] [id number] [place] [address]- 6272 Jan, [facility] [place] [facility] [address] [id number] [place] [address]- 9620 Jan, [facility] [place] [facility] [address] [id number] [place] [address]- 1050 Jan, [facility] [place] [facility] [address] [id number] [place] [address]- 8066 Jan, [facility] [place] [facility] [address] [id number] [place] [address]- 6256 Jan, [facility] [place] [facility] [address] [id number] [place] [address]- 0031 14 Jan, 2012 [facility] [place] [facility] [address] [id number] [place] [address]- 0482 Jan, [facility] [place] [facility] [address] [id number] [place] [address] Jan, [facility] [place] [facility] [address] [id number] [place] [address]- 0884 08 Jan, 2012 [facility] [place] [facility] [address] [id number] [place] [address]- 3248 07 Jan, 2012 [facility] [place] [facility] [address] [id number] [place] [address]- 6153 06 Jan, 2012 [facility] [place] [facility] [address] [id number] [place] [address]- 5230 Jan, [facility] [place] [facility] [address] [id number] [place] [address]- 5293 Jan, [facility] [place] [facility] [address] [id number] [place] [address]- 3656 Dec, [facility] [place] [facility] [address] [id number] [place] [address]- 9400 Dec, [facility] [place] [facility] [address] [id number] [place] [address]- 2751 Dec, [facility] [place] [facility] [address] [id number] [place] [address]- 6790 23 Dec, 2011 [facility] [place] [facility] [address] [id number] [place] [address]- 5009 16 Dec, 2011 [facility] [place] [facility] [address] [id number] [place] [address]- 3746 08 Dec, 2011 [facility] [place] [facility] [address] [id number] [place] [address]- 3017 08 Dec, 2011 [facility] [place] [facility] [address] [id number] [place] [address]- 4603 07 Dec, 2011 [facility] [address] [id number] [place] [address]- 0756 Dec, [facility] [address] [id number] [place] [address]- 2036 Nov, [facility] [address] [id number] [place] [address]- 5882 Nov, [facility] [address] [id number] [place] [address]- 6418 Nov, [facility] [address] [id number] [place] [address]- 1566 Nov, [facility] [address] [id number] [place] [address]- 0456 Oct, [facility] [address] [id number] [place] [address]- 1513 Oct, [facility] [address] [id number] [place] [address]- 7509 Oct, [facility] [address] [id number] [place] [address]- 9175 Oct, [facility] [address] [id number] [place] [address]- 2543 Oct, [facility] [address] [id number] [place] [address]- 0416 Oct, [facility] [address] [id number] [place] [address]- 5035 Oct, [facility] [place] [facility] [address] [id number] [place] [address]- 0797 Sep, [facility] [place] [facility] [address] [id number] [place] [address]- 7608 Sep, [facility] [address] [id number] [place] [address]- 6073 Sep, [facility] [place] [facility] [address] [id number] [place] [address]- 8469 Sep, [facility] [place] [facility] [address] [id number] [place] 4918 Sep, [facility] [place] [facility] [address] [id number] [place] [address]- 9649 Sep, [facility] [place] [facility] [address] [id number] [place] [address]- 8109 Sep, [facility] [place] [facility] [address] [id number] [place] [address]- 6015 Sep, [facility] [place] [facility] [address] [id number] [place] [address]- 7978 Sep, [facility] [place] [facility] [address] [id number] [place] [address]- 0587 Aug, [facility] [place] [facility] [address] [id number] [place] [address]- 9936 Aug, [facility] [place] [facility] [address] [id number] [place] [address]- 7407 Aug, [facility] [place] [facility] [address] [id number] [place] [address]- 8451 May, [facility] [place] [facility] [address] [id number] [place] [address]- 2464 Nov, [facility] [place] [facility] [address] [id number] [place] [address]- 5761 Oct, [facility] [place] [facility] [address] [id number] [place] [address]- 1265 Oct, [facility] [place] [facility] [address] [id number] [place] [address]- 6535 Oct, [facility] [place] [facility] [address] [id number] [place] [address]- 7287 Oct, [facility] [place] [facility] [address] [id number] [address]- 0493 Oct, [facility] [place] [address] [facility] [id number] [address]- 4996 03 Sep, 2010 [facility] [address] [facility] [id number] [address]- 7136 Sep, [facility] [address] [facility] [id number] [address]- 2526 14 Jul, 2010 [facility] [address] [facility] [id number] [address]- 9421 31 Oct, 2009 [facility] [place] [address] [facility] [id number] [address]- 5332 Oct, [facility] [address] [facility] [id number] [address]- 7973 Oct, [facility] [place] [address] [facility] [id number] [address]- 8080 Oct, [facility] [address] [facility] [id number] [address]- 1188 30 Sep, 2009 [facility] [place] [address] [facility] [id number] [address]- 3300 Sep, [facility] [place] [address] [facility] [id number] [address]- 0571 Sep, [facility] [place] [address] [facility] [id number] [address]- 0383 Sep, [facility] [place] [address] [facility] [id number] [address]- 3357 Sep, [facility] [place] [address] [facility] [id number] [address]- 3300 11 Jul, 2009 [facility] [place] [address] [facility] [id number] [address]- 9084 Apr, [facility] [place] [address] [facility] [id number] [address] 12 Dec, 2008 IMMUNIZATIONS No Known Immunizations SOCIAL HISTORY Never Assessed REASON FOR VISIT Refill PLAN OF CARE VITAL SIGNS MEDICATIONS Unknown Medications RESULTS No Results PROCEDURES No Known procedures INSTRUCTIONS MEDICATIONS ADMINISTERED No Known Medications MEDICAL (GENERAL) HISTORY Type Description Date Medical History hypertension Medical History hyperlipidemia Medical History diabetes type II Medical History COPD Medical History asthma Surgical History hysterectomy Surgical History arthritis surgery Hospitalization History surgeries
--- OUTSIDE RECORDS SUMMARY | 2018-11-26 15:59 | XMS REPORT ---
Author Author KING FISHMAN Organization [facility] Address [address] [place] [address] Care Team Providers Care Child Guidance Counselor Name Role Phone KING FISHMAN Unavailable PROBLEMS Type Condition ICD9-CM Code NPM13-FM Code Onset Dates Condition Status SNOMED Code Problem Gastroesophageal reflux disease, esophagitis presence not specified K21.9 Active 413262422 Problem Lumbago with sciatica, right side M54.41 Active [id number] Problem Lumbago with sciatica, left side M54.42 Active 605384360 Problem Iron deficiency anemia due to chronic blood loss D50.0 Active 014095378 Problem Seizures R56.9 Active 20387898 Problem Cigarette nicotine dependence without complication F17.210 Active 87510859 Problem Other chronic pain G89.29 Active 39833562 Problem Chronic obstructive pulmonary disease, unspecified COPD type J44.9 Active 14600755 Problem Pain in right ankle and joints of right foot M25.571 Active 81691367254511 Problem Reactive depression F32.9 Active 87052819 Problem Mixed hyperlipidemia E78.2 Active 072169661 Problem Essential hypertension I10 Active 11201432 Problem Prediabetes R73.03 Active 402150747 Problem Acquired hypothyroidism E03.9 Active 540053161 ALLERGIES No Information ENCOUNTERS Encounter Location Date Diagnosis [facility] [id number] [address] Jul, [address] [place] [address] 66374- 4731 Jun, Pain in thoracic spine M54.6 [address] [place] [address] 12419- 1828 Jun, Iron deficiency anemia due to chronic blood loss D50.0 and Hematochezia K92.1 [address] [place] [id number] [place] [address] 52757- 8784 Jun, Gastroenteritis K52.9 and Abnormal RBC indices R71.8 [facility] [address] 8[address]- [address]776 Jun, [facility] [address] [address] 2547 Jun, Chest congestion R09.89 and Seizures R56.9 [facility] [address] 68446- 2179 May, Pain in thoracic spine M54.6 [facility] [address] 69963- 2116 May, [facility] [address] 86271- 0625 May, [facility] [address] 84667- 1433 May, [facility] [address] 68930- 3256 May, Acute non-recurrent frontal sinusitis J01.10 and Dermatitis L30.9 [facility] [id number] [place] [address] 76473- 4918 May, [facility] [id number] [place] [address] 66052- 2846 May, Pain in thoracic spine M54.6 [facility] [id number] [place] [address] 44790- 2546 May, [facility] [address] 20920- 2728 May, Acute nasopharyngitis J00 [facility] [id number] [place] [address] 70944- 2546 May, [facility] [address] 15883- 9691 May, [facility] [address] [address] 1443 Apr, [facility] [id number] [place] [address] 87309- 2729 Apr, [facility] [address] [place] [address] 15716- 9877 Apr, [facility] [id number] [place] [address] 81610- 2740 Apr, [facility] [id number] [place] [address] 30799- 5278 Apr, Pain in right ankle and joints of right foot M25.571 [address] [place] [id number] [place] [address] 53893- 9737 Apr, [address] [id number] [place] [address] 60457- 3480 Apr, Bronchitis J40 ; Pain in right ankle and joints of right foot M25.571 ; Other chronic pain G89.29 ; Prediabetes R73.03 ; Chronic obstructive pulmonary disease, unspecified COPD type J44.9 and Cigarette nicotine dependence without complication F17.210 [facility] [address] [place] [address] 77688 -8074 Apr, Seasonal allergic rhinitis, unspecified trigger J30.2 [address] [place] [id number] [place] [address] 00511- 4517 Apr, Onychomycosis B35.1 ; Onychocryptosis L60.0 and DM 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 [address] [id number] [place] [address] 37955- 0635 Apr, Reactive depression F32.9 ; Thoracic myofascial strain, initial encounter S29.019A and Leg cramps R25.2 [facility] [address] [place] [address] 13271- 6030 March, [address] [id number] [place] [address] 63196- 1836 March, Type 2 diabetes mellitus with hyperglycemia E11.65 [address] 26348- 7290 March, Reactive depression F32.9 [address] 85972- 8486 March, Pain in thoracic spine M54.6 and Other chronic pain G89.29 [address] [place] [address] 46750- 5049 Feb, [address] [address] 91390- 6678 Jan, Reactive depression F32.9 ; Essential hypertension I10 ; Gastroesophageal reflux disease, esophagitis presence not specified K21.9 ; Lumbago with sciatica, left side M54.42 and Lumbago with sciatica, right side M54.41 [address] [place] [address] 09950- 0434 Jan, Reactive depression F32.9 and Pharyngoesophageal dysphagia R13.14 [address] [place] [address] 95490- 9117 Jan, [address] 43673- 7648 Jan, Encounter for immunization Z23 [place] [address] 74919- 8383 Jan, Onychomycosis B35.1 and DM 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 [place] [address] 60292- 1385 Jan, [address] 49205- 9808 Jan, Prediabetes R73.03 [address] [place] [address] 57297- 0485 Dec, [facility] [id number] [place] [address] 92877- 5251 Dec, Essential hypertension I10 ; Mixed hyperlipidemia E78.2 ; Acquired hypothyroidism E03.9 ; Reactive depression F32.9 and Prediabetes R73.03 [facility] [id number] [place] [address] 81831- 8709 Dec, [facility] [id number] [place] [address] 12597- 6722 Dec, [facility] [id number] [place] [address] 79031- 5627 Dec, DM 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 [facility] [id number] [place] [address] 12134 -6553 Dec, Bruise T14.8XXA ; Type 2 diabetes mellitus with hyperglycemia E11.65 and retirement current use of insulin Z79.4 [address] [id number] [place] [address] 37160- 9266 Oct, [place] [id number] [place] [address] 46424- 7621 March, Onychomycosis B35.1 and DM 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 [facility] [id number] [place] [address] 20016- 2717 Jun, [facility] [id number] [place] [address] 36178- 1010 Jun, [facility] [id number] [place] [address] 78541- 8823 Jun, COPD with acute exacerbation 491.21 [facility] [id number] [place] [address] 94501- 8955 Apr, [facility] [id number] [place] [address] 98766- 8331 Feb, [facility] [place] [facility] [address] [id number] [place] [address]- 5776 13 Feb, 2015 [facility] [place] [facility] [address] [id number] [place] [address]- 3204 26 Jan, 2015 [facility] [place] [facility] [address] [id number] [place] [address]- 5914 Jan, [facility] [place] [facility] [address] [id number] [place] [address]- 3038 Jan, [facility] [place] [facility] [address] [id number] [place] [address]- 0762 Jan, [facility] [place] [facility] [address] [id number] [place] [address]- 2799 24 Jan, 2015 [facility] [place] [facility] [address] [id number] [place] [address]- 7038 Jan, [facility] [place] [facility] [address] [id number] [place] [address]- 6194 Jan, [facility] [place] [facility] [address] [id number] [place] [address]- 7552 Jan, [facility] [place] [facility] [address] [id number] [place] [address]- 9047 23 Jan, 2015 [facility] [place] [facility] [address] [id number] [place] [address]- 9804 19 Jan, 2015 [facility] [place] [facility] [address] [id number] [place] [address]- 0332 19 Jan, 2015 [facility] [place] [facility] [address] [id number] [place] [address]- 4953 18 Jan, 2015 [facility] [place] [facility] [address] [id number] [place] [address]- 0567 18 Jan, 2015 [facility] [place] [facility] [address] [id number] [place] [address]- 2330 16 Jan, 2015 [facility] [place] [facility] [address] [id number] [place] [address]- 9106 16 Jan, 2015 [facility] [place] [facility] [address] [id number] [place] [address]- 5760 16 Jan, 2015 [facility] [place] [facility] [address] [id number] [place] [address]- 6712 16 Jan, 2015 [facility] [place] [facility] [address] [id number] [place] [address]- 2858 15 Jan, 2015 [facility] [place] [facility] [address] [id number] [place] [address]- 1218 13 Jan, 2015 [facility] [place] [facility] [address] [id number] [place] [address]- 1867 13 Jan, 2015 [facility] [place] [facility] [address] [id number] [place] [address]- 1693 13 Jan, 2015 [facility] [place] [facility] [address] [id number] [place] [address]- 7404 13 Jan, 2015 [facility] [place] [facility] [address] [id number] [place] [address]- 8887 12 Jan, 2015 [facility] [place] [facility] [address] [id number] [place] [address]- 4403 04 Jan, 2015 [facility] [place] [facility] [address] [id number] [place] [address]- 5040 04 Jan, 2015 [facility] [place] [facility] [address] [id number] [place] [address]- 7388 24 Dec, 2014 [facility] [place] [facility] [address] [id number] [place] [address]- 7582 Dec, [facility] [place] [facility] [address] [id number] [place] [address]- 2000 Dec, [facility] [place] [facility] [address] [id number] [place] [address]- 3937 Dec, [facility] [place] [facility] [address] [id number] [place] [address]- 3648 23 Dec, 2014 [facility] [place] [facility] [address] [id number] [place] [address]- 4892 Dec, 2014 [facility] [place] [facility] [address] [id number] [place] [address]- 3883 Dec, 2014 [facility] [place] [facility] [address] [id number] [place] [address]- 6561 Dec, 2014 [facility] [place] [facility] [address] [id number] [place] [address]- 9017 Dec, 2014 [facility] [place] [facility] [address] [id number] [place] [address]- 7784 Dec, 2014 [facility] [place] [facility] [address] [id number] [place] [address]- 0610 Dec, 2014 [facility] [place] [facility] [address] [id number] [place] [address]- 5717 Dec, [facility] [place] [facility] [address] [id number], [place] [address]- 8500 Nov, [facility] [place] [facility] [address] [id number] [place] [address]- 1148 Nov, [facility] [place] [facility] [address] [id number], [place] [address]- 2998 Nov, [facility] [place] [facility] [address] [id number], [place] [address]- 2298 Nov, [facility] [place] [facility] [address] [id number], [place] [address]- 7855 Nov, [facility] [place] [facility] [address] [id number], [place] [address]- 7307 Nov, [facility] [place] [facility] [address] [id number], [place] [address]- 1170 Nov, [facility] [place] [facility] [address] [id number], [place] [address]- 8907 15 Nov, 2014 [facility] [place] [facility] [address] [id number], [place] [address]- 4005 Nov, [facility] [address] [id number] [place] [address]- 8355 Nov, [facility] [place] [facility] [address] [id number] [place] [address]- 9187 Nov, [facility] [place] [facility] [address] [facility] [id number] [place] [address]- 8206 Nov, [facility] [place] [facility] [address] [id number] [place] [address]- 4471 Oct, [facility] [place] [facility] [address] [id number] [place] [address]- 0672 Oct, [facility] [place] [facility] [address] [id number] [place] [address]- 4257 Oct, [facility] [address] [id number] [place] [address]- 3647 Oct, [facility] [place] [facility] [address] [id number] [place] [address]- 9405 Oct, [facility] [place] [facility] [address] [id number] [place] [address]- 1078 Oct, [facility] [place] [facility] [address] [facility] [id number] [place] [address]- 4542 Oct, [facility] [place] [facility] [address] [id number] [place] [address]- 9153 Oct, [facility] [place] [facility] [address] [id number] [place] [address]- 0914 Oct, [facility] [place] [facility] [address] [id number] [place] [address]- 6595 Oct, [facility] [place] [facility] [address] [id number] [place] [address]- 5460 16 Oct, 2014 [facility] [place] [facility] [address] [id number] [place] [address]- 1826 16 Oct, 2014 [facility] [place] [facility] [address] [id number] [place] [address]- 7528 15 Oct, 2014 [facility] [place] [facility] [address] [id number] [place] 7798 Oct, [facility] [place] [facility] [address] [id number] [place] [address]- 6573 Oct, [facility] [place] [facility] [address] [id number] [place] 4575 Sep, [facility] [place] [facility] [address] [id number] [place] [address]- 7695 Sep, [facility] [place] [facility] [address] [id number] [place] [address]- 9864 Sep, [facility] [place] [facility] [address] [id number] [place] [address]- 4135 Sep, [facility] [place] [facility] [address] [id number] [place] [address]- 1765 Aug, [facility] [place] [facility] [address] [id number] [place] [address]- 3645 Aug, [facility] [place] [facility] [address] [id number] [place] [address]- 1423 Aug, [facility] [place] [facility] [address] [id number] [place] [address]- 9924 Aug, [facility] [place] [facility] [address] [id number] [place] [address]- 4013 Aug, [facility] [place] [facility] [address] [id number] [place] [address]- 2704 Aug, [facility] [place] [facility] [address] [id number] [place] [address]- 2051 Jul, [facility] [place] [facility] [address] [id number] [place] [address]- 4668 29 Jul, 2014 [facility] [place] [facility] [address] [id number] [place] [address]- 2284 Jul, [facility] [place] [facility] [address] [id number] [place] [address]- 4790 Jul, [facility] [place] [facility] [address] [id number] [place] [address]- 0739 Jul, [facility] [place] [facility] [address] [id number] [place] [address]- 4145 Jul, [facility] [place] [facility] [address] [id number] [place] [address]- 5685 Jun, [facility] [place] [facility] [address] [id number] [place] [address]- 0885 Jun, [facility] [place] [facility] [address] [id number] [place] [address]- 6054 Jun, [facility] [place] [facility] [address] [id number] [place] [address]- 7889 Jun, [facility] [place] [facility] [address] [id number] [place] [address]- 1543 Jun, [facility] [place] [facility] [address] [id number] [place] [address]- 9974 Jun, [facility] [place] [facility] [address] [id number] [place] [address]- 2891 Jun, [facility] [place] [facility] [address] [id number] [place] [address]- 9519 May, [facility] [place] [facility] [address] [id number] [place] [address]- 8615 May, [facility] [place] [facility] [address] [id number] [place] [address]- 2815 May, [facility] [place] [facility] [address] [id number] [place] [address]- 8161 May, [facility] [place] [facility] [address] [id number] [place] [address]- 4136 May, [facility] [place] [facility] [address] [id number] [place] [address]- 0740 May, 2013 [facility] [place] [facility] [address] [id number] [place] [address]- 5276 May, 2013 [facility] [place] [facility] [address] [id number] [place] [address]- 7378 May, 2013 [facility] [place] [facility] [address] [id number] [place] [address]- 0832 May, 2013 [facility] [place] [facility] [address] [id number] [place] [address]- 3906 May, 2013 [facility] [place] [facility] [address] [id number] [place] [address]- 3079 May, [facility] [place] [facility] [address] [id number] [place] [address]- 3514 May, [facility] [place] [facility] [address] [id number] [place] [address]- 7710 Apr, [facility] [place] [facility] [address] [id number] [place] [address]- 4056 Apr, [facility] [place] [facility] [address] [id number] [place] [address]- 4565 Apr, [facility] [place] [facility] [address] [id number] [place] [address]- 2466 Apr, [facility] [place] [facility] [address] [id number] [place] [address]- 2433 Apr, [facility] [place] [facility] [address] [id number] [place] [address]- 4773 Apr, [facility] [place] [facility] [address] [id number] [place] [address]- 9363 Apr, [facility] [place] [facility] [address] [id number] [place] [address]- 6522 Apr, [facility] [place] [facility] [address] [id number] [place] [address]- 3458 Apr, [facility] [place] [facility] [address] [id number] [place] [address]- 5591 Apr, [facility] [place] [facility] [address] [id number] [place] [address]- 5265 March, [facility] [place] [facility] [address] [id number] [place] [address]- 8684 March, [facility] [place] [facility] [address] [id number] [place] [address]- 9141 March, [facility] [place] [facility] [address] [id number] [place] [address]- 7929 March, [facility] [place] [facility] [address] [id number] [place] [address]- 4053 March, [facility] [place] [facility] [address] [id number] [place] [address]- 2370 March, [facility] [place] [facility] [address] [id number] [place] [address]- 1254 Feb, [facility] [place] [facility] [address] [id number] [place] [address]- 5877 Feb, [facility] [place] [facility] [address] [id number] [place] [address]- 1117 Feb, [facility] [place] [facility] [address] [id number] [place] [address]- 0726 Feb, [facility] [place] [facility] [address] [id number] [place] [address]- 3351 Feb, [facility] [place] [facility] [address] [id number] [place] [address]- 4085 Feb, [facility] [place] [facility] [address] [id number] [place] [address]- 5949 Feb, [facility] [place] [facility] [address] [id number] [place] [address]- 3476 Feb, [facility] [place] [facility] [address] [id number] [place] [address]- 2546 Feb, [facility] [place] [facility] [address] [id number] [place] 0578 Feb, [facility] [place] [facility] [address] [id number] [place] [address]- 8607 Jan, [facility] [place] [facility] [address] [id number] [place] 0660 Jan, [facility] [place] [facility] [address] [id number] [place] [address]- 7592 Jan, [facility] [place] [facility] [address] [id number] [place] [address]- 3463 Jan, [facility] [place] [facility] [address] [id number] [place] [address]- 7111 Jan, [facility] [place] [facility] [address] [facility] [id number] [place] [address]- 9820 Jan, [facility] [place] [facility] [address] [id number] [place] [address] Jan, [facility] [place] [facility] [address] [id number] [place] [address] Jan, [facility] [place] [facility] [address] [facility] [id number] [place] [address] Dec, [facility] [place] [facility] [address] [id number] [place] [address] Dec, [facility] [place] [facility] [address] [id number] [place] [address] Dec, [facility] [place] [facility] [address] [id number] [place] [address] Dec, [facility] [place] [facility] [address] [id number] [place] [address] Dec, [facility] [place] [facility] [address] [facility] [id number] [place] [address] Dec, [facility] [place] [facility] [address] [id number] [place] [address] Dec, [facility] [place] [facility] [address] [id number] [place] [address] Dec, [facility] [place] [facility] [address] [id number] [place] [address] Nov, [facility] [place] [facility] [address] [id number] [place] [address] Nov, [facility] [place] [facility] [address] [id number] [place] [address] Nov, [facility] [place] [facility] [address] [id number] [place] [address]703 Nov, [facility] [place] [facility] [address] [id number] [place] [address] Nov, [facility] [place] [facility] [address] [id number] [place] [address] Nov, [facility] [place] [facility] [address] [id number] [place] [address] Nov, [facility] [place] [facility] [address] [id number] [place] [address] Nov, [facility] [place] [facility] [address] [id number] [place] [address] Nov, [facility] [place] [facility] [address] [id number] [place] [address] Nov, [facility] [place] [facility] [address] [id number] [place] [address] Nov, [facility] [place] [facility] [address] [id number] [place] [address]708 Oct, [facility] [place] [facility] [address] [id number] [place] [address] 6872 Oct, [facility] [place] [facility] [address] [id number] [place] [address]851 Oct, [facility] [place] [facility] [address] [id number] [place] [address]18 Oct, [facility] [place] [facility] [address] [id number] [place] [address] Sep, [facility] [place] [facility] [address] [id number] [place] [address] Sep, [facility] [place] [facility] [address] [id number] [place] [address] Sep, [facility] [place] [facility] [address] [id number] [place] [address] Sep, [facility] [place] [facility] [address] [id number] [place] [address] Aug, [facility] [place] [facility] [address] [id number] [place] [address] Aug, [facility] [place] [facility] [address] [id number] [place] [address] 8040 Aug, [facility] [place] [facility] [address] [id number] [place] [address] 4736 Aug, [facility] [place] [facility] [address] [id number] [place] [address] 7670 Aug, [facility] [place] [facility] [address] [id number], [place] [address] Aug, [facility] [place] [facility] [address] [id number], [place] [address] Aug, [facility] [place] [facility] [address] [id number] [place] [address] Aug, [facility] [place] [facility] [address] [id number], [place] [address] Jul, [facility] [place] [facility] [address] [id number] [place] [address] Jul, [facility] [place] [facility] [address] [id number] [place] [address]45 26 Sep, 2012 [facility] [address] [id number] [place] [address]46 24 Sep, 2012 [facility] [address] [id number] [place] [address] 2546 24 Jul, 2012 [facility] [address] [id number] [place] [address] 2546 23 Sep, 2012 [facility] [address] [id number] [place] [address] 19 Sep, 2012 [facility] [address] [id number] [place] [address] 18 Jul, 2012 [facility] [address] [id number] [place] [address] 79[address] 17 Jul, 2012 [facility] [address] [id number] [place] [address]48 16 Jul, 2012 [facility] [address] [id number] [place] [address] 13 Jul, 2012 [facility] [address] [id number] [place] [address]- [address]41 13 Jul, 2012 [facility] [address] [id number] [place] [address]- 2961 12 Jul, 2012 [facility] [address] [id number] [place] [address] 2544 11 Jul, 2012 [facility] [address] [id number] [place] [address]- [address] 04 Jul, 2012 [facility] [place] [facility] [address] [id number] [place] [address]- 3943 30 Jun, 2013 [facility] [place] [facility] [address] [id number] [place] [address]49 Jun, [facility] [facility] [address] [id number] [place] [address] Jun, [facility] [address] [id number] [place] [address] May, [facility] [place] [facility] [address] [id number] [place] [address] 1218 May, [facility] [place] [facility] [address] [id number] [place] [address] 4772 May, [facility] [place] [facility] [address] [id number] [place] [address] 8448 May, [facility] [place] [facility] [address] [id number] [place] [address] 3885 Apr, [facility] [place] [facility] [address] [id number] [place] [address] 3[address] Apr, [facility] [place] [facility] [address] [id number] [place] [address]- 3682 Apr, [facility] [place] [facility] [address] [id number] [place] [address]- 0166 Apr, [facility] [place] [facility] [address] [id number] [place] [address]244 March, [facility] [place] [facility] [address] [id number] [place] [address]- 4795 March, [facility] [place] [facility] [address] [id number] [place] [address]13 March, [facility] [place] [facility] [address] [id number] [place] [address]- 9644 Feb, [facility] [place] [facility] [address] [id number] [place] [address]- 9298 Feb, [facility] [place] [facility] [address] [id number] [place] [address]- 6826 Jan, [facility] [place] [facility] [address] [id number] [place] [address]- 5215 Jan, [facility] [place] [facility] [address] [id number], [place] [address] Jan, [facility] [address] [id number] [place] [address] 5713 Jan, [facility] [address] [id number] [place] [address]- 1816 Jan, [facility] [address] [id number] [place] [address]- 4366 Dec, [facility] [address] [id number] [place] [address] 0725 Dec, [facility] [address] [id number] [place] [address]- 7812 Dec, [facility] [address] [id number] [place] [address]- 2806 Dec, [facility] [address] [id number] [place] [address]- 3487 Dec, [facility] [address] [id number] [place] [address]- 0042 Dec, [facility] [address] [id number] [place] [address]- [address] Dec, [facility] [address] [facility] [id number] [place] [address]- 3635 Dec, [facility] [address] [id number] [place] [address]- 0739 Nov, [facility] [address] [id number] [place] [address] 2549 Nov, [facility] [place] [facility] [address] [id number] [place] [address]- 8106 Nov, [facility] [address] [id number] [place] [address]- 7914 Nov, [facility] [address] [facility] [id number] [place] [address]- 1807 Nov, [facility] [place] [facility] [address] [id number] [place] [address]- 4833 Nov, [facility] [place] [facility] [address] [id number] [place] [address]- 1092 Nov, [facility] [place] [facility] [address] [id number] [place] [address]- 6403 Oct, [facility] [place] [facility] [address] [id number] [place] [address] 5100 Oct, [facility] [place] [facility] [address] [id number] [place] [address]- 5880 Oct, [facility] [place] [facility] [address] [id number] [place] [address]- 2575 Oct, [facility] [place] [facility] [address] [id number] [place] [address]- 9190 Oct, [facility] [place] [facility] [address] [id number] [place] [address]- 6858 Oct, [facility] [place] [facility] [address] [id number] [place] [address]- 7343 Oct, [facility] [place] [facility] [address] [id number] [place] [address]- 1526 Oct, [facility] [place] [facility] [address] [id number], [place] [address] 6962 Sep, [facility] [place] [facility] [address] [id number], [place] [address]- 1581 Sep, [facility] [place] [facility] [address] [id number] [place] [address]- 8548 Sep, [facility] [place] [facility] [address] [id number] [place] [address]- 3795 Sep, [facility] [place] [facility] [address] [id number] [place] [address]- 9358 Sep, [facility] [place] [facility] [address] [id number], [place] [address]- 0472 Sep, [facility] [place] [facility] [address] [id number] [place] [address]- 9691 Sep, [facility] [place] [facility] [address] [id number] [place] [address]- 3763 Sep, [facility] [place] [facility] [address] [facility] [id number] [place] [address]- 1538 Sep, [facility] [place] [facility] [address] [id number] [place] [address]- 6406 Sep, [facility] [place] [facility] [address] [facility] [id number] [place] [address], [place] [address]- 2622 Sep, [facility] [place] [facility] [address] [facility] [id number] [place] [address]- 6712 Sep, [facility] [place] [facility] [id number] [address]- 3539 Sep, [facility] [place] [facility] [address] [facility] [id number] [place] [address]- 5996 Sep, [facility] [place] [facility] [address] [id number] [place] [address]- 5502 Sep, [facility] [place] [facility] [address] [id number] [place] [address]- 0173 Sep, [facility] [place] [facility] [address] [facility] [id number], [place] [address]- 8781 Sep, [facility] [place] [facility] [address] [facility] [id number], [place] [address]- 4744 Sep, [facility] [place] [facility] [address] [facility] [id number] [place] [address]- 6971 Sep, [facility] [place] [facility] [address] [facility] [id number] [place] [address]- 6746 Sep, [facility] [place] [facility] [address] [id number] [place] [address]- 9280 Aug, [facility] [place] [facility] [address] [id number] [place] [address]- 7882 31 Aug, 2011 [facility] [place] [facility] [address] [id number] [place] [address]- 3371 29 Aug, 2011 [facility] [place] [facility] [address] [id number] [place] [address]- 1261 27 Aug, 2011 [facility] [place] [facility] [address] [id number] [place] [address]- 5973 27 Aug, 2011 [facility] [place] [facility] [address] [id number] [place] [address]- 0003 18 Aug, 2011 [facility] [place] [facility] [address] [id number] [place] [address]- 7814 18 Aug, 2012 [facility] [place] [facility] [address] [id number] [place] [address]- 6599 17 Aug, 2012 [facility] [place] [facility] [address] [id number] [place] [address]- 8287 16 Aug, 2012 [facility] [place] [facility] [address] [id number] [place] [address]- 5484 16 Aug, 2012 [facility] [place] [facility] [address] [id number] [place] [address]- 0758 15 Aug, 2012 [facility] [place] [facility] [address] [id number] [place] [address]- 2125 09 Aug, 2012 [facility] [place] [facility] [address] [id number] [place] [address]- 5267 05 Aug, 2012 [facility] [place] [facility] [address] [id number] [place] [address]- 3951 05 Aug, 2012 [facility] [place] [facility] [address] [id number] [place] [address]- 8212 04 Aug, 2012 [facility] [place] [facility] [address] [id number] [place] [address]- 7248 14 Jul, 2012 [facility] [place] [facility] [address] [id number] [place] [address]- 4770 Jul, [facility] [place] [facility] [address] [id number] [place] [address]- 3703 Jun, [facility] [place] [facility] [address] [id number] [place] [address]- 5349 Jun, [facility] [place] [facility] [address] [id number] [place] [address]- 3701 May, [facility] [place] [facility] [address] [id number] [place] [address]- 6995 May, [facility] [place] [facility] [address] [id number] [place] [address]- 5054 May, [facility] [place] [facility] [address] [id number] [place] [address]- 6815 May, [facility] [place] [facility] [address] [id number] [place] [address]- 7720 May, [facility] [place] [facility] [address] [id number] [place] [address]- 6938 May, [facility] [place] [facility] [address] [id number] [place] [address]- 8427 Apr, [facility] [place] [facility] [address] [id number] [place] [address]- 7061 Apr, [facility] [place] [facility] [address] [id number] [place] [address]- 2034 March, [facility] [place] [facility] [address] [id number] [place] [address]- 4951 March, [facility] [place] [facility] [address] [id number] [place] [address]- 8561 March, [facility] [place] [facility] [address] [id number] [place] [address]- 9818 March, [facility] [place] [facility] [address] [id number] [place] [address]- 9160 March, [facility] [place] [facility] [address] [id number] [place] [address]- 6342 March, [facility] [address] [id number] [place] [address]- 5246 Feb, [facility] [place] [facility] [address] [id number] [place] [address]- 3996 Feb, [facility] [address] [id number] [place] [address]- 3196 Feb, [facility] [place] [facility] [address] [id number] [place] [address]- 6006 Feb, [facility] [place] [facility] [address] [id number] [place] [address]- 9728 Feb, [facility] [place] [facility] [address] [id number] [place] [address]- 7538 Feb, [facility] [address] [id number] [place] [address]- 3228 Feb, [facility] [place] [facility] [address] [id number] [place] [address]- 7241 Feb, [facility] [place] [facility] [address] [id number] [place] [address]- 4619 Feb, [facility] [address] [id number] [place] [address]- 5622 Jan, [facility] [place] [facility] [address] [id number] [place] [address]- 4188 Jan, [facility] [place] [facility] [address] [id number] [place] [address]- 1462 Jan, [facility] [place] [facility] [address] [id number] [place] [address]- 5444 Jan, [facility] [place] [facility] [address] [id number] [place] [address]- 7286 Jan, [facility] [place] [facility] [address] [id number] [place] [address]- 3282 Jan, [facility] [place] [facility] [address] [id number] [place] [address]- 5106 14 Jan, 2012 [facility] [place] [facility] [address] [id number] [place] [address]- 2059 Jan, [facility] [place] [facility] [address] [id number] [place] [address] Jan, [facility] [place] [facility] [address] [id number] [place] [address]- 6641 08 Jan, 2012 [facility] [place] [facility] [address] [id number] [place] [address]- 6759 07 Jan, 2012 [facility] [place] [facility] [address] [id number] [place] [address]- 7448 06 Jan, 2012 [facility] [place] [facility] [address] [id number] [place] [address]- 7656 Jan, [facility] [place] [facility] [address] [id number] [place] [address]- 0003 Jan, [facility] [place] [facility] [address] [id number] [place] [address]- 3088 Dec, [facility] [place] [facility] [address] [id number] [place] [address]- 5317 Dec, [facility] [place] [facility] [address] [id number] [place] [address]- 8740 Dec, [facility] [place] [facility] [address] [id number] [place] [address]- 8279 23 Dec, 2011 [facility] [place] [facility] [address] [id number] [place] [address]- 1180 16 Dec, 2011 [facility] [place] [facility] [address] [id number] [place] [address]- 8126 08 Dec, 2011 [facility] [place] [facility] [address] [id number] [place] [address]- 6642 08 Dec, 2011 [facility] [place] [facility] [address] [id number] [place] [address]- 9143 07 Dec, 2011 [facility] [address] [id number] [place] [address]- 9886 Dec, [facility] [address] [id number] [place] [address]- 3566 Nov, [facility] [address] [id number] [place] [address]- 4510 Nov, [facility] [address] [id number] [place] [address]- 1968 Nov, [facility] [address] [id number] [place] [address]- 4761 Nov, [facility] [address] [id number] [place] [address]- 1428 Oct, [facility] [address] [id number] [place] [address]- 5506 Oct, [facility] [address] [id number] [place] [address]- 6499 Oct, [facility] [address] [id number] [place] [address]- 5855 Oct, [facility] [address] [id number] [place] [address]- 0218 Oct, [facility] [address] [id number] [place] [address]- 2446 Oct, [facility] [address] [id number] [place] [address]- 2391 Oct, [facility] [place] [facility] [address] [id number] [place] [address]- 6486 Sep, [facility] [place] [facility] [address] [id number] [place] [address]- 5812 Sep, [facility] [address] [id number] [place] [address]- 9029 Sep, [facility] [place] [facility] [address] [id number] [place] [address]- 1332 Sep, [facility] [place] [facility] [address] [id number] [place] 9657 Sep, [facility] [place] [facility] [address] [id number] [place] [address]- 3227 Sep, [facility] [place] [facility] [address] [id number] [place] [address]- 9126 Sep, [facility] [place] [facility] [address] [id number] [place] [address]- 9979 Sep, [facility] [place] [facility] [address] [id number] [place] [address]- 2287 Sep, [facility] [place] [facility] [address] [id number] [place] [address]- 5401 Aug, [facility] [place] [facility] [address] [id number] [place] [address]- 5041 Aug, [facility] [place] [facility] [address] [id number] [place] [address]- 8642 Aug, [facility] [place] [facility] [address] [id number] [place] [address]- 9120 May, [facility] [place] [facility] [address] [id number] [place] [address]- 8320 Nov, [facility] [place] [facility] [address] [id number] [place] [address]- 9757 Oct, [facility] [place] [facility] [address] [id number] [place] [address]- 9228 Oct, [facility] [place] [facility] [address] [id number] [place] [address]- 7509 Oct, [facility] [place] [facility] [address] [id number] [place] [address]- 2717 Oct, [facility] [place] [facility] [address] [id number], [place] [address]- 3916 Oct, [facility] [address] [facility] [id number], [place] [address]- 3586 03 Sep, 2010 [facility] [address] [facility] [id number], [place] [address]- 9906 Sep, [facility] [address] [facility] [id number], [place] [address]- 1386 14 Jul, 2010 [facility] [address] [facility] [id number], [place] [address]- 6828 31 Oct, 2009 [facility] [address] [facility] [id number], [place] [address]- 9839 Oct, [facility] [address] [facility] [id number], [place] [address]- 0435 Oct, [facility] [address] [facility] [id number], [place] [address]- 1549 Oct, [facility] [address] [facility] [id number], [place] [address]- 3756 30 Sep, 2009 [facility] [address] [facility] [id number], [place] [address]- 0252 Sep, [facility] [address] [facility] [id number], [place] [address]- 2417 Sep, [facility] [address] [facility] [id number], [place] [address]- 5635 Sep, [facility] [address] [facility] [id number], [place] [address]- 0668 Sep, [facility] [address] [facility] [id number], [place] [address]- 2087 11 Jul, 2009 [facility] [address] [facility] [id number], [place] [address]- 5009 Apr, [facility] [address] [facility] [id number], [place] [address]- 0855 12 Dec, 2008 IMMUNIZATIONS No Known Immunizations [...]
[2018-11-26] MEDS ORDERED: cefTRIAXone FOR IV USE 1,000 MG in NS (IVPB) 50 ML IV ONE (16:00)
--- OUTSIDE RECORDS SUMMARY | 2018-11-26 16:00 | XMS REPORT ---
Author Author KING FISHMAN Organization [facility] Address [address] [place] [address] Care Team Providers Care Weight Inspector Name Role Phone KING FISHMAN Unavailable PROBLEMS Type Condition ICD9-CM Code CWZ42-IG Code Onset Dates Condition Status SNOMED Code Problem Gastroesophageal reflux disease, esophagitis presence not specified K21.9 Active 794116921 Problem Lumbago with sciatica, right side M54.41 Active [id number] Problem Lumbago with sciatica, left side M54.42 Active 476555849 Problem Iron deficiency anemia due to chronic blood loss D50.0 Active 704006987 Problem Seizures R56.9 Active 75231065 Problem Cigarette nicotine dependence without complication F17.210 Active 24804474 Problem Other chronic pain G89.29 Active 13221399 Problem Chronic obstructive pulmonary disease, unspecified COPD type J44.9 Active 19475158 Problem Pain in right ankle and joints of right foot M25.571 Active 15879870062788 Problem Reactive depression F32.9 Active 57661413 Problem Mixed hyperlipidemia E78.2 Active 668541931 Problem Essential hypertension I10 Active 24884322 Problem Prediabetes R73.03 Active 956273292 Problem Acquired hypothyroidism E03.9 Active 589245591 ALLERGIES No Information ENCOUNTERS Encounter Location Date Diagnosis [facility] [id number] [address] Jul, [address] [id number] [place] [address]6773- 6461 Jun, Pain in thoracic spine M54.6 [place] [id number] [place] [address] 48508- 5414 Jun, Iron deficiency anemia due to chronic blood loss D50.0 and Hematochezia K92.1 [place] [id number] [place] [address] 36103- 5538 Jun, Gastroenteritis K52.9 and Abnormal RBC indices R71.8 [facility] [address] [address] Jun, [facility] [address] [address] 2548 Jun, Chest congestion R09.89 and Seizures R56.9 [facility] [address] [address]- 6433 May, Pain in thoracic spine M54.6 [facility] [address] [address]- 5656 May, [facility] [address] [address]- 2579 May, [facility] [address] [address]07- [address]283 May, [facility] [address] 99656- 8748 May, Acute non-recurrent frontal sinusitis J01.10 and Dermatitis L30.9 [facility] [id number] [place] [address] 51995- 8661 May, [facility] [id number] [place] [address] 29747- 0555 May, Pain in thoracic spine M54.6 [facility] [id number] [place] [address] 66197- 2546 May, [facility] [address] 11[address]- 0840 May, Acute nasopharyngitis J00 [facility] [id number] [place] [address] 30000- 2546 May, [facility] [address] 33328- 9809 May, [facility] [address] [address] 59[address] Apr, [facility] [id number] [place] [address] 25180- 7243 Apr, [facility] [id number] [place] [address] 47885- 7778 Apr, [facility] [id number] [place] [address] 56066- 8745 Apr, [facility] [id number] [place] [address] 09101- 1256 Apr, Pain in right ankle and joints of right foot M25.571 [place] [id number] [place] [address] 58723- 9357 Apr, [place] [id number] [place] [address] 86403- 6470 Apr, Bronchitis J40 ; Pain in right ankle and joints of right foot M25.571 ; Other chronic pain G89.29 ; Prediabetes R73.03 ; Chronic obstructive pulmonary disease, unspecified COPD type J44.9 and Cigarette nicotine dependence without complication F17.210 [facility] [address] [place] [address] 44207 -6689 Apr, Seasonal allergic rhinitis, unspecified trigger J30.2 [place] [id number] [place] [address] 44457- 7894 Apr, Onychomycosis B35.1 ; Onychocryptosis L60.0 and DM 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 [place] [id number] [place] [address] 51989- 5429 Apr, Reactive depression F32.9 ; Thoracic myofascial strain, initial encounter S29.019A and Leg cramps R25.2 [facility] [address] [place] [address] 23773- 1889 March, [place] [id number] [place] [address] 63971- 9597 March, Type 2 diabetes mellitus with hyperglycemia E11.65 [place] [address] 48144- 8412 March, Reactive depression F32.9 [place] [address] 65564- 7778 March, Pain in thoracic spine M54.6 and Other chronic pain G89.29 [place] [address] 80338- 6530 Feb, [place] [address] 64528- 3340 Jan, Reactive depression F32.9 ; Essential hypertension I10 ; Gastroesophageal reflux disease, esophagitis presence not specified K21.9 ; Lumbago with sciatica, left side M54.42 and Lumbago with sciatica, right side M54.41 [place] [address] 83517- 4493 Jan, Reactive depression F32.9 and Pharyngoesophageal dysphagia R13.14 [place] [address] 78058- 3278 Jan, [address] [address]- 8575 Jan, Encounter for immunization Z23 [place] [address] 74050- 9354 Jan, Onychomycosis B35.1 and DM 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 [place] [address] 37292- 4227 Jan, [address] 32173- 8622 Jan, Prediabetes R73.03 [place] [address] 39543- 2832 Dec, [facility] [id number] [place] [address] 21586- 9745 Dec, Essential hypertension I10 ; Mixed hyperlipidemia E78.2 ; Acquired hypothyroidism E03.9 ; Reactive depression F32.9 and Prediabetes R73.03 [facility] [id number] [place] [address] 25067- 4379 Dec, [facility] [id number] [place] [address] 84369- 9022 Dec, [facility] [id number] [place] [address] 86265- 3879 Dec, DM 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 [facility] [id number] [place] [address] 22206 -1104 Dec, Bruise T14.8XXA ; Type 2 diabetes mellitus with hyperglycemia E11.65 and assisted current use of insulin Z79.4 [place] [id number] [place] [address] 24855- 3535 Oct, [place] [id number] [place] [address] 16629- 5566 March, Onychomycosis B35.1 and DM 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 [facility] [id number] [place] [address] 28990- 8156 Jun, [facility] [id number] [place] [address] 09948- 8033 Jun, [facility] [id number] [place] [address] 42493- 5643 Jun, COPD with acute exacerbation 491.21 [facility] [id number] [place] [address] 08508- 9827 Apr, [facility] [id number] [place] [address] 77699- 7574 Feb, [facility] [place] [facility] [address] [id number] [place] [address]- 5031 13 Feb, 2015 [facility] [place] [facility] [address] [id number] [place] [address]- 4537 26 Jan, 2015 [facility] [place] [facility] [address] [id number] [place] [address]- 2178 Jan, [facility] [place] [facility] [address] [id number] [place] [address]- 5191 Jan, [facility] [place] [facility] [address] [id number] [place] [address]- 6754 Jan, [facility] [place] [facility] [address] [id number] [place] [address]- 3111 24 Jan, 2015 [facility] [place] [facility] [address] [id number] [place] [address]- 2808 Jan, [facility] [place] [facility] [address] [id number] [place] [address]- 1044 Jan, [facility] [place] [facility] [address] [id number] [place] [address]- 0469 Jan, [facility] [place] [facility] [address] [id number] [place] [address]- 1971 23 Jan, 2015 [facility] [place] [facility] [address] [id number] [place] [address]- 1396 19 Jan, 2015 [facility] [place] [facility] [address] [id number] [place] [address]- 7187 19 Jan, 2015 [facility] [place] [facility] [address] [id number] [place] [address]- 6259 18 Jan, 2015 [facility] [place] [facility] [address] [id number] [place] [address]- 2004 18 Jan, 2015 [facility] [place] [facility] [address] [id number] [place] [address]- 1228 16 Jan, 2015 [facility] [place] [facility] [address] [id number] [place] [address]- 2915 16 Jan, 2015 [facility] [place] [facility] [address] [id number] [place] [address]- 1053 16 Jan, 2015 [facility] [place] [facility] [address] [id number] [place] [address]- 1422 16 Jan, 2015 [facility] [place] [facility] [address] [id number] [place] [address]- 9808 15 Jan, 2015 [facility] [place] [facility] [address] [id number] [place] [address]- 6095 13 Jan, 2015 [facility] [place] [facility] [address] [id number] [place] [address]- 6669 13 Jan, 2015 [facility] [place] [facility] [address] [id number] [place] [address]- 2150 13 Jan, 2015 [facility] [place] [facility] [address] [id number] [place] [address]- 6445 13 Jan, 2015 [facility] [place] [facility] [address] [id number] [place] [address]- 3195 12 Jan, 2015 [facility] [place] [facility] [address] [id number] [place] [address]- 9985 04 Jan, 2015 [facility] [place] [facility] [address] [id number] [place] [address]- 6831 04 Jan, 2015 [facility] [place] [facility] [address] [id number] [place] [address]- 1538 24 Dec, 2014 [facility] [place] [facility] [address] [id number] [place] [address]- 4043 Dec, [facility] [place] [facility] [address] [id number] [place] [address]- 5665 Dec, [facility] [place] [facility] [address] [id number] [place] [address]- 1401 Dec, [facility] [place] [facility] [address] [id number] [place] [address]- 8616 23 Dec, 2014 [facility] [place] [facility] [address] [id number] [place] [address]- 5907 Dec, 2014 [facility] [place] [facility] [address] [id number] [place] [address]- 7919 Dec, 2014 [facility] [place] [facility] [address] [id number] [place] [address]- 1829 Dec, 2014 [facility] [place] [facility] [address] [id number] [place] [address]- 8146 Dec, 2014 [facility] [place] [facility] [address] [id number] [place] [address]- 0501 Dec, 2014 [facility] [place] [facility] [address] [id number] [place] [address]- 1281 Dec, 2014 [facility] [place] [facility] [address] [id number] [place] [address]- 7827 Dec, [facility] [place] [facility] [address] [id number] [address]- 1567 Nov, [facility] [place] [facility] [address] [id number] [place] [address]- 9363 Nov, [facility] [place] [facility] [address] [id number] [place] [address]- 3505 Nov, [facility] [place] [facility] [address] [id number] [place] [address]- 1365 Nov, [facility] [place] [facility] [address] [id number] [place] [address]- 6985 Nov, [facility] [place] [facility] [address] [id number] [place] [address]- 0624 Nov, [facility] [place] [facility] [address] [id number] [place] [address]- 4955 Nov, [facility] [place] [facility] [address] [id number] [place] [address]- 2398 15 Nov, 2014 [facility] [place] [facility] [address] [id number] [place] [address]- 9653 Nov, [facility] [address] [id number] [place] [address]- 2516 Nov, [facility] [place] [facility] [address] [id number] [place] [address]- 6031 Nov, [facility] [place] [facility] [address] [facility] [id number] [place] [address]- 8385 Nov, [facility] [place] [facility] [address] [id number] [place] [address]- 4074 Oct, [facility] [place] [facility] [address] [id number] [place] [address]- 2006 Oct, [facility] [place] [facility] [address] [id number] [place] [address]- 3746 Oct, [facility] [address] [id number] [place] [address]- 1334 Oct, [facility] [place] [facility] [address] [id number] [place] [address]- 1884 Oct, [facility] [place] [facility] [address] [id number] [place] [address]- 2901 Oct, [facility] [place] [facility] [address] [facility] [id number] [place] [address]- 0654 Oct, [facility] [place] [facility] [address] [id number] [place] [address]- 1107 Oct, [facility] [place] [facility] [address] [id number] [place] [address]- 4691 Oct, [facility] [place] [facility] [address] [id number] [place] [address]- 7971 Oct, [facility] [place] [facility] [address] [id number] [place] [address]- 7983 16 Oct, 2014 [facility] [place] [facility] [address] [id number] [place] [address]- 4282 16 Oct, 2014 [facility] [place] [facility] [address] [id number] [place] [address]- 7579 15 Oct, 2014 [facility] [place] [facility] [address] [id number] [place] 1166 Oct, [facility] [place] [facility] [address] [id number] [place] [address]- 6639 Oct, [facility] [place] [facility] [address] [id number] [place] 7408 Sep, [facility] [place] [facility] [address] [id number] [place] [address]- 1898 Sep, [facility] [place] [facility] [address] [id number] [place] [address]- 4372 Sep, [facility] [place] [facility] [address] [id number] [place] [address]- 4980 Sep, [facility] [place] [facility] [address] [id number] [place] [address]- 3319 Aug, [facility] [place] [facility] [address] [id number] [place] [address]- 0590 Aug, [facility] [place] [facility] [address] [id number] [place] [address]- 9306 Aug, [facility] [place] [facility] [address] [id number] [place] [address]- 4122 Aug, [facility] [place] [facility] [address] [id number] [place] [address]- 3684 Aug, [facility] [place] [facility] [address] [id number] [place] [address]- 5328 Aug, [facility] [place] [facility] [address] [id number] [place] [address]- 5645 Jul, [facility] [place] [facility] [address] [id number] [place] [address]- 9140 29 Jul, 2014 [facility] [place] [facility] [address] [id number] [place] [address]- 2625 Jul, [facility] [place] [facility] [address] [id number] [place] [address]- 3268 Jul, [facility] [place] [facility] [address] [id number] [place] [address]- 3376 Jul, [facility] [place] [facility] [address] [id number] [place] [address]- 5670 Jul, [facility] [place] [facility] [address] [id number] [place] [address]- 7894 Jun, [facility] [place] [facility] [address] [id number] [place] [address]- 8376 Jun, [facility] [place] [facility] [address] [id number] [place] [address]- 3611 Jun, [facility] [place] [facility] [address] [id number] [place] [address]- 5330 Jun, [facility] [place] [facility] [address] [id number] [place] [address]- 7790 Jun, [facility] [place] [facility] [address] [id number] [place] [address]- 1005 Jun, [facility] [place] [facility] [address] [id number] [place] [address]- 0213 Jun, [facility] [place] [facility] [address] [id number] [place] [address]- 9621 May, [facility] [place] [facility] [address] [id number] [place] [address]- 0327 May, [facility] [place] [facility] [address] [id number] [place] [address]- 9686 May, [facility] [place] [facility] [address] [id number] [place] [address]- 8001 May, [facility] [place] [facility] [address] [id number] [place] [address]- 0675 May, [facility] [place] [facility] [address] [id number] [place] [address]- 6049 May, 2013 [facility] [place] [facility] [address] [id number] [place] [address]- 7611 May, 2013 [facility] [place] [facility] [address] [id number] [place] [address]- 8774 May, 2013 [facility] [place] [facility] [address] [id number] [place] [address]- 5160 May, 2013 [facility] [place] [facility] [address] [id number] [place] [address]- 7223 May, 2013 [facility] [place] [facility] [address] [id number] [place] [address]- 6565 May, [facility] [place] [facility] [address] [id number] [place] [address]- 9791 May, [facility] [place] [facility] [address] [id number] [place] [address]- 4924 Apr, [facility] [place] [facility] [address] [id number] [place] [address]- 4093 Apr, [facility] [place] [facility] [address] [id number] [place] [address]- 8312 Apr, [facility] [place] [facility] [address] [id number] [place] [address]- 6170 Apr, [facility] [place] [facility] [address] [id number] [place] [address]- 8928 Apr, [facility] [place] [facility] [address] [id number] [place] [address]- 8910 Apr, [facility] [place] [facility] [address] [id number] [place] [address]- 1353 Apr, [facility] [place] [facility] [address] [id number] [place] [address]- 2762 Apr, [facility] [place] [facility] [address] [id number] [place] [address]- 8948 Apr, [facility] [place] [facility] [address] [id number] [place] [address]- 0375 Apr, [facility] [place] [facility] [address] [id number] [place] [address]- 5139 March, [facility] [place] [facility] [address] [id number] [place] [address]- 1260 March, [facility] [place] [facility] [address] [id number] [place] [address]- 2096 March, [facility] [place] [facility] [address] [id number] [place] [address]- 3424 March, [facility] [place] [facility] [address] [id number] [place] [address]- 2636 March, [facility] [place] [facility] [address] [id number] [place] [address]- 5015 March, [facility] [place] [facility] [address] [id number] [place] [address]- 3286 Feb, [facility] [place] [facility] [address] [id number] [place] [address]- 4202 Feb, [facility] [place] [facility] [address] [id number] [place] [address]- 9514 Feb, [facility] [place] [facility] [address] [id number] [place] [address]- 9092 Feb, [facility] [place] [facility] [address] [id number] [place] [address] Feb, [facility] [place] [facility] [address] [id number] [place] [address] Feb, [facility] [place] [facility] [address] [id number] [place] [address] Feb, [facility] [place] [facility] [address] [id number] [place] [address] Feb, [facility] [place] [facility] [address] [id number] [place] [address] Feb, [facility] [place] [facility] [address] [id number] [place] [address] Feb, [facility] [place] [facility] [address] [id number] [place] [address] Jan, [facility] [place] [facility] [address] [id number] [place] [address] Jan, [facility] [place] [facility] [address] [id number] [place] [address] Jan, [facility] [place] [facility] [address] [id number] [place] [address] Jan, [facility] [place] [facility] [address] [id number] [place] [address] Jan, [facility] [place] [facility] [address] [facility] [id number] [place] [address] Jan, [facility] [place] [facility] [address] [id number] [place] [address] Jan, [facility] [place] [facility] [address] [id number] [place] [address] Jan, [facility] [place] [facility] [address] [facility] [id number] [place] [address] Dec, [facility] [place] [facility] [address] [id number] [place] [address] Dec, [facility] [place] [facility] [address] [id number] [place] [address] Dec, [facility] [place] [facility] [address] [id number] [place] [address] Dec, [facility] [place] [facility] [address] [id number] [place] [address] Dec, [facility] [place] [facility] [address] [facility] [id number] [place] [address] Dec, [facility] [place] [facility] [address] [id number] [place] [address] Dec, [facility] [place] [facility] [address] [id number] [place] [address] Dec, [facility] [place] [facility] [address] [id number] [place] [address] Nov, [facility] [place] [facility] [address] [id number] [place] [address] Nov, [facility] [place] [facility] [address] [id number] [place] [address] Nov, [facility] [place] [facility] [address] [id number] [place] [address] Nov, [facility] [place] [facility] [address] [id number] [place] [address]- [address] Nov, [facility] [place] [facility] [address] [id number] [place] [address] Nov, [facility] [place] [facility] [address] [id number] [place] [address] Nov, [facility] [place] [facility] [address] [id number] [place] [address] Nov, [facility] [place] [facility] [address] [id number] [place] [address] Nov, [facility] [place] [facility] [address] [id number] [place] [address] Nov, [facility] [place] [facility] [address] [id number] [place] [address] Nov, [facility] [place] [facility] [address] [id number] [place] [address] Oct, [facility] [place] [facility] [address] [id number] [place] [address] 6944 Oct, [facility] [place] [facility] [address] [id number] [place] [address] Oct, [facility] [place] [facility] [address] [id number] [place] [address] Oct, [facility] [place] [facility] [address] [id number] [place] [address] Sep, [facility] [place] [facility] [address] [id number] [place] [address] Sep, [facility] [place] [facility] [address] [id number] [place] [address] Sep, [facility] [place] [facility] [address] [id number] [place] [address] Sep, [facility] [place] [facility] [address] [id number] [place] [address] Aug, [facility] [place] [facility] [address] [id number] [place] [address] Aug, [facility] [place] [facility] [address] [id number] [place] [address] Aug, [facility] [place] [facility] [address] [id number] [place] [address] Aug, [facility] [place] [facility] [address] [id number] [place] [address] 39[address] Aug, [facility] [place] [facility] [address] [id number] [place] [address] Aug, [facility] [place] [facility] [address] [id number] [place] [address] Aug, [facility] [place] [facility] [address] [id number] [place] [address] Aug, [facility] [place] [facility] [address] [id number] [place] [address] Jul, [facility] [place] [facility] [address] [id number] [place] [address] 4[address] Jul, [facility] [place] [facility] [address] [id number] [place] [address] 2545 26 Sep, 2012 [facility] [address] [id number] [place] [address] 2546 24 Sep, 2012 [facility] [address] [id number] [place] [address] 2546 24 Jul, 2012 [facility] [address] [id number] [place] [address] 2546 23 Sep, 2012 [facility] [address] [id number] [place] [address] 2541 19 Sep, 2012 [facility] [address] [id number] [place] [address] 1107 18 Jul, 2012 [facility] [address] [id number] [place] [address] 6409 17 Jul, 2012 [facility] [address] [id number] [place] [address]- 2542 16 Jul, 2012 [facility] [address] [id number] [place] [address]- 0648 13 Jul, 2012 [facility] [address] [id number] [place] [address]- 2549 13 Jul, 2012 [facility] [address] [id number] [place] [address]- 8669 12 Jul, 2012 [facility] [address] [id number] [place] [address] 2544 11 Jul, 2012 [facility] [address] [id number] [place] [address]- 2545 04 Jul, 2012 [facility] [place] [facility] [address] [id number] [place] [address]- 9386 30 Jun, 2013 [facility] [place] [facility] [address] [id number] [place] [address]- 2545 Jun, [facility] [address] [id number] [place] [address]- 6484 Jun, [facility] [address] [id number] [place] [address]- 0141 May, [facility] [place] [facility] [address] [id number] [place] [address] 1955 May, [facility] [place] [facility] [address] [id number] [place] [address]- 2150 May, [facility] [place] [facility] [address] [id number] [place] [address]- 8925 May, [facility] [place] [facility] [address] [id number] [place] [address]- 5119 Apr, [facility] [place] [facility] [address] [id number] [place] [address]- 9629 Apr, [facility] [place] [facility] [address] [id number] [place] [address]- 5063 Apr, [facility] [place] [facility] [address] [id number] [place] [address]- 3315 Apr, [facility] [place] [facility] [address] [id number] [place] [address]- 8844 March, [facility] [place] [facility] [address] [id number] [place] [address]- 4234 March, [facility] [place] [facility] [address] [id number] [place] [address]- 0686 March, [facility] [place] [facility] [address] [id number] [place] [address]- 9821 Feb, [facility] [place] [facility] [address] [id number] [place] [address]- 1610 Feb, [facility] [place] [facility] [address] [id number] [place] [address]- 8386 Jan, [facility] [place] [facility] [address] [id number] [place] [address]- 1075 Jan, [facility] [place] [facility] [address] [id number] [place] [address] 9655 Jan, [facility] [address] [id number] [place] [address]- 7175 Jan, [facility] [address] [id number] [place] [address]- 5316 Jan, [facility] [address] [id number] [place] [address]- 9746 Dec, [facility] [address] [id number] [place] [address]- 4306 Dec, [facility] [address] [id number] [place] [address]- 5133 Dec, [facility] [address] [id number] [place] [address]- 5726 Dec, [facility] [address] [id number] [place] [address]- 9467 Dec, [facility] [address] [id number] [place] [address]- 4130 Dec, [facility] [address] [id number] [address] 9010 Dec, [facility] [address] [facility] [id number] [place] [address]- 4245 Dec, [facility] [address] [id number] [place] [address]- 4860 Nov, [facility] [address] [id number] [place] [address] 254 Nov, [facility] [place] [facility] [address] [id number] [place] [address]- 7605 Nov, [facility] [address] [id number] [place] [address]- 4044 Nov, [facility] [address] [facility] [id number] [place] [address]- 9701 Nov, [facility] [place] [facility] [address] [id number] [place] [address]- 4782 Nov, [facility] [place] [facility] [address] [id number] [place] [address]- 5689 Nov, [facility] [place] [facility] [address] [id number] [place] [address]- 4920 Oct, [facility] [place] [facility] [address] [id number] [place] [address]- 4418 Oct, [facility] [place] [facility] [address] [id number] [place] [address]- 8639 Oct, [facility] [place] [facility] [address] [id number] [place] [address]- 4625 Oct, [facility] [place] [facility] [address] [id number] [place] [address]- 5262 Oct, [facility] [place] [facility] [address] [id number] [place] [address]- 7526 Oct, [facility] [place] [facility] [address] [id number] [place] [address]- 7167 Oct, [facility] [place] [facility] [address] [id number] [place] [address]- 1947 Oct, [facility] [place] [facility] [address] [id number] [place] [address]- 7418 Sep, [facility] [place] [facility] [address] [id number] [place] [address]- 6689 Sep, [facility] [place] [facility] [address] [id number] [place] [address]- 3263 Sep, [facility] [place] [facility] [address] [id number] [place] [address]- 1175 Sep, [facility] [place] [facility] [address] [id number] [place] [address]- 5333 Sep, [facility] [place] [facility] [address] [id number] [place] [address]- 7435 Sep, [facility] [place] [facility] [address] [id number] [place] [address]- 9015 Sep, [facility] [place] [facility] [address] [id number] [place] [address]- 0794 Sep, [facility] [place] [facility] [address] [facility] [id number] [place] [address]- 2402 Sep, [facility] [place] [facility] [address] [id number] [place] [address]- 4186 Sep, [facility] [place] [facility] [address] [facility] [id number] [place] [address], [place] [address]- 1569 Sep, [facility] [place] [facility] [address] [facility] [id number] [place] [address]- 6677 Sep, [facility] [place] [facility] [id number] [place] [address]- 6338 Sep, [facility] [place] [facility] [address] [facility] [id number] [place] [address]- 4145 Sep, [facility] [place] [facility] [address] [id number] [address]- 5803 Sep, [facility] [place] [facility] [address] [id number] [address]- 9667 Sep, [facility] [place] [facility] [address] [facility] [id number] [place] [address]- 6181 Sep, [facility] [place] [facility] [address] [facility] [id number] [place] [address]- 0925 Sep, [facility] [place] [facility] [address] [facility] [id number] [place] [address]- 1054 Sep, [facility] [place] [facility] [address] [facility] [id number] [place] [address]- 5333 Sep, [facility] [place] [facility] [address] [id number] [address]- 4687 Aug, [facility] [place] [facility] [address] [id number] [place] [address]- 0850 31 Aug, 2011 [facility] [place] [facility] [address] [id number] [place] [address]- 4978 29 Aug, 2011 [facility] [place] [facility] [address] [id number] [place] [address]- 5103 27 Aug, 2011 [facility] [place] [facility] [address] [id number] [place] [address]- 7024 27 Aug, 2011 [facility] [place] [facility] [address] [id number] [place] [address]- 0780 18 Aug, 2011 [facility] [place] [facility] [address] [id number] [place] [address]- 5279 18 Aug, 2012 [facility] [place] [facility] [address] [id number] [place] [address]- 7162 17 Aug, 2012 [facility] [place] [facility] [address] [id number] [place] [address]- 3728 16 Aug, 2012 [facility] [place] [facility] [address] [id number] [place] [address]- 5121 16 Aug, 2012 [facility] [place] [facility] [address] [id number] [place] [address]- 7002 15 Aug, 2012 [facility] [place] [facility] [address] [id number] [place] [address]- 5147 09 Aug, 2012 [facility] [place] [facility] [address] [id number] [place] [address]- 9369 05 Aug, 2012 [facility] [place] [facility] [address] [id number] [place] [address]- 3859 05 Aug, 2012 [facility] [place] [facility] [address] [id number] [place] [address]- 0157 04 Aug, 2012 [facility] [place] [facility] [address] [id number] [place] [address]- 0583 14 Jul, 2012 [facility] [place] [facility] [address] [id number] [place] [address]- 0441 Jul, [facility] [place] [facility] [address] [id number] [place] [address]- 7520 Jun, [facility] [place] [facility] [address] [id number] [place] [address]- 1736 Jun, [facility] [place] [facility] [address] [id number] [place] [address]- 0848 May, [facility] [place] [facility] [address] [id number] [place] [address]- 6468 May, [facility] [place] [facility] [address] [id number] [place] [address]- 1573 May, [facility] [place] [facility] [address] [id number] [place] [address]- 5679 May, [facility] [place] [facility] [address] [id number] [place] [address]- 0981 May, [facility] [place] [facility] [address] [id number] [place] [address]- 2037 May, [facility] [place] [facility] [address] [id number] [place] [address]- 7216 Apr, [facility] [place] [facility] [address] [id number] [place] [address]- 4514 Apr, [facility] [place] [facility] [address] [id number] [place] [address]- 2887 March, [facility] [place] [facility] [address] [id number] [place] [address]- 7850 March, [facility] [place] [facility] [address] [id number] [place] [address]- 6120 March, [facility] [place] [facility] [address] [id number] [place] [address]- 2741 March, [facility] [place] [facility] [address] [id number] [place] [address]- 6243 March, [facility] [place] [facility] [address] [id number] [place] [address]- 9319 March, [facility] [address] [id number] [place] [address]- 6476 Feb, [facility] [place] [facility] [address] [id number] [place] [address]- 7536 Feb, [facility] [address] [id number] [place] [address]- 6476 Feb, [facility] [place] [facility] [address] [id number] [place] [address]- 7836 Feb, [facility] [place] [facility] [address] [id number] [place] [address]- 8367 Feb, [facility] [place] [facility] [address] [id number] [place] [address]- 7952 Feb, [facility] [address] [id number] [place] [address]- 6161 Feb, [facility] [place] [facility] [address] [id number] [place] [address]- 7736 Feb, [facility] [place] [facility] [address] [id number] [place] [address]- 5317 Feb, [facility] [address] [id number] [place] [address]- 7045 Jan, [facility] [place] [facility] [address] [id number] [place] [address]- 9772 Jan, [facility] [place] [facility] [address] [id number] [place] [address]- 2794 Jan, [facility] [place] [facility] [address] [id number] [place] [address]- 3328 Jan, [facility] [place] [facility] [address] [id number] [place] [address]- 0426 Jan, [facility] [place] [facility] [address] [id number] [place] [address]- 4169 Jan, [facility] [place] [facility] [address] [id number] [place] [address]- 1845 14 Jan, 2012 [facility] [place] [facility] [address] [id number] [place] [address]- 9172 Jan, [facility] [place] [facility] [address] [id number] [place] 8726 Jan, [facility] [place] [facility] [address] [id number] [place] [address]- 8407 08 Jan, 2012 [facility] [place] [facility] [address] [id number] [place] [address]- 4665 07 Jan, 2012 [facility] [place] [facility] [address] [id number] [place] [address]- 2476 06 Jan, 2012 [facility] [place] [facility] [address] [id number] [place] [address]- 1480 Jan, [facility] [place] [facility] [address] [id number] [place] [address]- 2210 Jan, [facility] [place] [facility] [address] [id number] [place] [address]- 6678 Dec, [facility] [place] [facility] [address] [id number] [place] [address]- 9766 Dec, [facility] [place] [facility] [address] [id number] [place] [address]- 2140 Dec, [facility] [place] [facility] [address] [id number] [place] [address]- 5131 23 Dec, 2011 [facility] [place] [facility] [address] [id number] [place] [address]- 6355 16 Dec, 2011 [facility] [place] [facility] [address] [id number] [place] [address]- 8756 08 Dec, 2011 [facility] [place] [facility] [address] [id number] [place] [address]- 0840 08 Dec, 2011 [facility] [place] [facility] [address] [id number] [place] [address]- 9836 07 Dec, 2011 [facility] [address] [id number] [place] [address]- 6406 Dec, [facility] [address] [id number] [place] [address]- 4066 Nov, [facility] [address] [id number] [place] [address]- 8505 Nov, [facility] [address] [id number] [place] [address]- 8324 Nov, [facility] [address] [id number] [place] [address]- 5875 Nov, [facility] [address] [id number] [place] [address]- 2181 Oct, [facility] [address] [id number] [place] [address]- 6647 Oct, [facility] [address] [id number] [place] [address]- 3456 Oct, [facility] [address] [id number] [place] [address]- 9187 Oct, [facility] [address] [id number] [place] [address]- 5351 Oct, [facility] [address] [id number] [place] [address]- 2716 Oct, [facility] [address] [id number] [place] [address]- 2095 Oct, [facility] [place] [facility] [address] [id number] [place] [address]- 9920 Sep, [facility] [place] [facility] [address] [id number] [place] [address]- 2835 Sep, [facility] [address] [id number] [place] [address]- 8065 Sep, [facility] [place] [facility] [address] [id number] [place] [address]- 4963 Sep, [facility] [place] [facility] [address] [id number] [place] 1513 Sep, [facility] [place] [facility] [address] [id number] [place] [address]- 6682 Sep, [facility] [place] [facility] [address] [id number] [place] [address]- 0528 Sep, [facility] [place] [facility] [address] [id number] [place] [address]- 4806 Sep, [facility] [place] [facility] [address] [id number] [place] [address]- 5994 Sep, [facility] [place] [facility] [address] [id number] [place] [address]- 5928 Aug, [facility] [place] [facility] [address] [id number] [place] [address]- 2758 Aug, [facility] [place] [facility] [address] [id number] [place] [address]- 8500 Aug, [facility] [place] [facility] [address] [id number] [place] [address]- 4748 May, [facility] [place] [facility] [address] [id number] [place] [address]- 6576 Nov, [facility] [place] [facility] [address] [id number] [place] [address]- 6881 Oct, [facility] [place] [facility] [address] [id number] [place] [address]- 4596 Oct, [facility] [place] [facility] [address] [id number] [place] [address]- 9544 Oct, [facility] [place] [facility] [address] [id number] [place] [address]- 4026 Oct, [facility] [place] [facility] [address] [id number] [place] [address]- 6557 Oct, [facility] [address] [facility] [id number] [place] [address]- 1456 03 Sep, 2010 [facility] [address] [facility] [id number] [place] [address]- 4826 Sep, [facility] [address] [facility] [id number] [place] [address]- 2456 14 Jul, 2010 [facility] [address] [facility] [id number] [place] [address] 31 Oct, 2009 [facility] [address] [facility] [id number] [place] [address] Oct, [facility] [address] [facility] [id number] [place] [address] Oct, [facility] [address] [facility] [id number] [place] [address] Oct, [facility] [address] [facility] [id number] [place] [address] 30 Sep, 2009 [facility] [address] [facility] [id number] [place] [address] Sep, [facility] [address] [facility] [id number] [place] [address] Sep, [facility] [address] [facility] [id number] [place] [address] Sep, [facility] [address] [facility] [id number] [place] [address] Sep, [facility] [address] [facility] [id number] [place] [address] 11 Jul, 2009 [facility] [address] [facility] [id number] [place] [address] Apr, [facility] [address] [facility] [id number] [place] [address] 12 Dec, 2008 IMMUNIZATIONS No Known Immunizations SOCIAL HISTORY Never Assessed REASON FOR VISIT discontinuation of PLAN OF CARE VITAL SIGNS MEDICATIONS Unknown Medications RESULTS No Results PROCEDURES No Known procedures INSTRUCTIONS MEDICATIONS ADMINISTERED No Known Medications MEDICAL (GENERAL) HISTORY Type Description Date Medical History hypertension Medical History hyperlipidemia Medical History diabetes type II Medical History COPD Medical History asthma Surgical History hysterectomy Surgical History arthritis surgery Hospitalization History surgeries
--- OUTSIDE RECORDS SUMMARY | 2018-11-26 16:01 | XMS REPORT ---
Author Author KING FISHMAN [facility] Address [address] [place] [address] Care Team Providers Care International Trade Compliance Manager Name Role Phone KING FISHMAN Unavailable PROBLEMS Type Condition ICD9-CM Code [id number] Code Onset Dates Condition Status SNOMED Code Problem Gastroesophageal reflux disease, esophagitis presence not specified K21.9 Active 276182835 Problem Lumbago with sciatica, right side M54.41 Active [id number] Problem Lumbago with sciatica, left side M54.42 Active 845687924 Problem Iron deficiency anemia due to chronic blood loss D50.0 Active 550643138 Problem Seizures R56.9 Active 69797232 Problem Cigarette nicotine dependence without complication F17.210 Active 43266403 Problem Other chronic pain G89.29 Active 19840549 Problem Chronic obstructive pulmonary disease, unspecified COPD type J44.9 Active 51454503 Problem Pain in right ankle and joints of right foot M25.571 Active 21117406232738 Problem Reactive depression F32.9 Active 71744620 Problem Mixed hyperlipidemia E78.2 Active 343941640 Problem Essential hypertension I10 Active 38981025 Problem Prediabetes R73.03 Active 747834642 Problem Acquired hypothyroidism E03.9 Active 642478247 ALLERGIES Substance Reaction Event Type Date Status Penicillin G Potassium anaphylaxis Drug Allergy Apr, Active Codeine Sulfate anaphylaxis Drug Allergy Apr, Active Aspirin hives Drug Allergy Apr, Active Peanut hives Non Drug Allergy Apr, Active ENCOUNTERS Encounter Location Date Diagnosis [facility] [address] [facility] [id number] [address] Jul, [facility] [address] [facility] [id number], [place] [address] Jun, Pain in thoracic spine M54.6 [facility] [address] [address] Jun, Iron deficiency anemia due to chronic blood loss D50.0 and Hematochezia K92.1 [facility] [address] [address] Jun, Gastroenteritis K52.9 and Abnormal RBC indices R71.8 [facility] [address] [address] Jun, [facility] [address] [address]- [address] Jun, Chest congestion R09.89 and Seizures R56.9 [place] [address] [address]- [address] May, Pain in thoracic spine M54.6 [place] [address] [address]- [address] May, [facility] [address] [address]- [address] May, [facility] [address] [address]- [address] May, [facility] [address] [address]- [address] May, Acute non-recurrent frontal sinusitis J01.10 and Dermatitis L30.9 [facility] [address] [address]- [address] May, [facility] [address] [address]- 6[address] May, Pain in thoracic spine M54.6 [facility] [address] [address]- [address] May, [facility] [address] [address]- [address] May, Acute nasopharyngitis J00 [facility] [address] [place] [address] May, [facility] [address] [address] May, [facility] [id number] [place] [address]95- 1711 Apr, [facility] [id number] [place] [address] 83741- 7569 Apr, [facility] [address] [place] [id number] [place] [address] 04087- 8442 Apr, [facility] [address] [place] [address] [id number] [place] [address] 45174- 4042 Apr, [facility] [address] [place] [address] [id number] [place] [address] 43416- 0384 Apr, Pain in right ankle and joints of right foot M25.571 [place] [address] [place] [address] [id number] [place] [address] 41546- 7108 Apr, [facility] [address] [place] [address] [id number] [place] [address] 85049- 8132 Apr, Bronchitis J40 ; Pain in right ankle and joints of right foot M25.571 ; Other chronic pain G89.29 ; Prediabetes R73.03 ; Chronic obstructive pulmonary disease, unspecified COPD type J44.9 and Cigarette nicotine dependence without complication F17.210 [facility] [address] [address] 13 Apr, 2018 Seasonal allergic rhinitis, unspecified trigger J30.2 [facility] [id number] [place] [address]68- 2546 08 Apr, 2018 Onychomycosis B35.1 ; Onychocryptosis L60.0 and DM 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 [place] [address] [address] 24[address] Apr, Reactive depression F32.9 ; Thoracic myofascial strain, initial encounter S29.019A and Leg cramps R25.2 [place] [address] [place] [id number] [place] [address] 84382- 1018 March, [place] [address] [place] [id number] [place] [address] 07338- 7363 March, Type 2 diabetes mellitus with hyperglycemia E11.65 [place] [address] [address]48- 0236 March, Reactive depression F32.9 [place] [address] 81291- 6162 March, Pain in thoracic spine M54.6 and Other chronic pain G89.29 [place] [address] [address]- 03[address] Feb, [place] [address] [address]- 3603 Jan, Reactive depression F32.9 ; Essential hypertension I10 ; Gastroesophageal reflux disease, esophagitis presence not specified K21.9 ; Lumbago with sciatica, left side M54.42 and Lumbago with sciatica, right side M54.41 [place] [address] [place] [id number] [place] [address] 00256- 7637 Jan, Reactive depression F32.9 and Pharyngoesophageal dysphagia R13.14 [place] [address] [place] [id number] [place] [address] 55240- 0912 Jan, [place] [address] [place] [id number] [place] [address] 94402- 2393 Jan, Encounter for immunization Z23 [place] [address] 9[address]42- 6828 Jan, Onychomycosis B35.1 and DM 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 [place] [address] [place] [id number] [place] [address] 51604- 9100 Jan, [place] [address] [place] [id number] [place] [address] 91486- 8860 Jan, Prediabetes R73.03 [facility] [address] 91912- 3925 Dec, [facility] [address] [place] [id number] [place] [address] 01550- 9704 Dec, Essential hypertension I10 ; Mixed hyperlipidemia E78.2 ; Acquired hypothyroidism E03.9 ; Reactive depression F32.9 and Prediabetes R73.03 [facility] [address] [place] [id number] [place] [address] 24781- 8071 Dec, [place] [address] 9[address]01- 9613 Dec, [place] [address] 78754- 0170 Dec, DM 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 [facility] [address] [place] [address] [id number] [place] [address] 55560 -2251 Dec, Bruise T14.8XXA ; Type 2 diabetes mellitus with hyperglycemia E11.65 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 [place] [address] [place] [id number] [place] [address] 25552- 3215 Oct, [place] [address] [place] [id number] [place] [address] 44011- 6899 March, Onychomycosis B35.1 and DM 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 [place] [address] [place] [id number] [place] [address] 59700- 1018 Jun, [place] [address] 69817- 5487 Jun, [place] [address] [place] [id number] [place] [address] 00642- 8273 Jun, COPD with acute exacerbation 491.21 [place] [address] 21584- 2708 15 Apr, 2015 [facility] [place] [facility] [address] [id number] [place] [address]- 1592 14 Feb, 2015 [facility] [place] [facility] [address] [id number] [place] [address]- 9219 13 Feb, 2015 [facility] [place] [facility] [address] [id number] [place] [address]- 3635 26 Jan, 2015 [facility] [place] [facility] [address] [id number] [place] [address]- 9732 26 Jan, 2015 [facility] [place] [facility] [address] [id number] [place] [address]- 0187 Jan, [facility] [place] [facility] [address] [id number] [place] [address]- 6598 Jan, [facility] [place] [facility] [address] [id number] [place] [address]- 1062 24 Jan, 2015 [facility] [place] [facility] [address] [id number] [place] [address]- 7253 Jan, [facility] [place] [facility] [address] [id number] [place] [address]- 3356 Jan, [facility] [place] [facility] [address] [id number] [place] [address]- 7370 Jan, [facility] [place] [facility] [address] [id number] [place] [address]- 9146 Jan, [facility] [place] [facility] [address] [id number] [place] [address]- 3716 19 Jan, 2015 [facility] [place] [facility] [address] [id number] [place] [address]- 4320 19 Jan, 2015 [facility] [place] [facility] [address] [id number] [place] [address]- 9530 18 Jan, 2015 [facility] [place] [facility] [address] [id number] [place] [address]- 4120 18 Jan, 2015 [facility] [place] [facility] [address] [id number] [place] [address]- 2630 16 Jan, 2014 [facility] [place] [facility] [address] [id number] [place] [address]- 0554 16 Jan, 2015 [facility] [place] [facility] [address] [id number] [place] [address]- 8615 16 Jan, 2014 [facility] [place] [facility] [address] [id number] [place] [address]- 1834 16 Jan, 2014 [facility] [place] [facility] [address] [id number] [place] [address]- 4492 15 Jan, 2015 [facility] [place] [facility] [address] [id number] [place] [address]- 8387 13 Jan, 2015 [facility] [place] [facility] [address] [id number] [place] [address]- 0034 13 Jan, 2015 [facility] [place] [facility] [address] [id number] [place] [address]- 5865 13 Jan, 2014 [facility] [place] [facility] [address] [id number] [place] [address]- 6223 13 Jan, 2015 [facility] [place] [facility] [address] [id number] [place] [address]- 7074 12 Jan, 2015 [facility] [place] [facility] [address] [id number] [place] [address]- 5087 04 Jan, 2015 [facility] [place] [facility] [address] [id number] [place] [address]- 7354 04 Jan, 2015 [facility] [place] [facility] [address] [id number] [place] [address]- 2877 24 Dec, 2014 [facility] [place] [facility] [address] [id number] [place] [address]- 0814 24 Dec, 2014 [facility] [place] [facility] [address] [id number] [place] [address]- 7766 24 Dec, 2014 [facility] [place] [facility] [address] [id number] [place] [address]- 9093 Dec, [facility] [place] [facility] [address] [id number] [place] [address]- 6304 Dec, [facility] [place] [facility] [address] [id number] [place] Dec, 2014 [facility] [place] [facility] [address] [id number] [place] [address]- 8398 Dec, 2014 [facility] [place] [facility] [address] [id number] [place] [address]- 7315 Dec, 2014 [facility] [place] [facility] [address] [id number] [place] [address]- 7716 Dec, 2014 [facility] [place] [facility] [address] [id number] [place] [address]- 2312 Dec, 2014 [facility] [place] [facility] [address] [facility] [id number] [place] [address]- 2459 Dec, 2014 [facility] [place] [facility] [address] [id number] [place] [address]- 3056 Dec, [facility] [place] [facility] [address] [id number] [place] [address]- 5790 Nov, [facility] [place] [facility] [address] [facility] [id number] [place] [address]- 0420 Nov, [facility] [place] [facility] [address] [facility] [id number] [place] [address]- 2894 Nov, [facility] [place] [facility] [address] [id number], [place] [address]- 4345 Nov, [facility] [place] [facility] [address] [id number], [place] [address]- 5613 Nov, [facility] [place] [facility] [address] [facility] [id number], [place] [address]- 4090 Nov, [facility] [place] [facility] [address] [facility] [id number], [place] [address]- 4056 Nov, [facility] [place] [facility] [address] [id number] [place] [address]- 5234 Nov, [facility] [place] [facility] [address] [id number] [place] [address]- 2430 Nov, [facility] [place] [facility] [address] [id number] [place] [address]- 5186 Nov, [facility] [place] [facility] [address] [id number] [place] [address]- 4571 Nov, [facility] [place] [facility] [address] [id number] [place] [address]- 3499 Nov, [facility] [place] [facility] [address] [id number] [place] [address]- 9722 Oct, [facility] [place] [facility] [address] [id number] [place] [address]- 6638 Oct, [facility] [place] [facility] [address] [id number] [place] [address]- 2428 Oct, [facility] [place] [facility] [address] [id number] [place] [address]- 4872 Oct, [facility] [place] [facility] [address] [id number] [place] [address]- 5253 Oct, [facility] [place] [facility] [address] [id number] [place] [address]- 5115 Oct, [facility] [place] [facility] [address] [id number] [place] [address]- 1515 Oct, [facility] [place] [facility] [address] [id number] [place] [address]- 2604 Oct, [facility] [place] [facility] [address] [id number] [place] [address]- 0453 Oct, [facility] [place] [facility] [address] [id number] [place] [address]- 1391 Oct, [facility] [place] [facility] [address] [id number], [place] [address]- 1144 16 Oct, 2014 [facility] [place] [facility] [address] [id number] [place] [address]- 0362 16 Oct, 2014 [facility] [place] [facility] [address] [id number] [place] 2973 Oct, [facility] [place] [facility] [address] [facility] [id number] [place] [address]- 5642 Oct, [facility] [place] [facility] [address] [id number], [place] [address]- 4075 Oct, [facility] [place] [facility] [address] [id number] [place] [address]- 3587 Sep, [facility] [place] [facility] [address] [id number] [place] [address]- 7070 Sep, [facility] [place] [facility] [address] [id number] [place] [address]- 1058 Sep, [facility] [place] [facility] [address] [id number], [place] [address]- 0913 Sep, [facility] [place] [facility] [address] [id number], [place] [address]- 5702 Aug, [facility] [place] [facility] [address] [id number] [place] [address]- 5407 Aug, [facility] [place] [facility] [address] [id number], [place] [address]- 5535 Aug, [facility] [place] [facility] [address] [id number], [place] [address]- 4439 Aug, [facility] [place] [facility] [address] [id number], [place] [address]- 0684 Aug, [facility] [place] [facility] [address] [facility] [id number], [place] [address]- 5209 Aug, [facility] [place] [facility] [address] [id number], [place] [address]- 3205 Jul, [facility] [place] [facility] [address] [id number] [place] [address]- 8702 29 Jul, 2014 [facility] [place] [facility] [address] [id number] [place] [address]- 9926 15 Jul, 2014 [facility] [place] [facility] [address] [id number] [place] [address]- 5466 15 Jul, 2014 [facility] [place] [facility] [address] [id number] [place] [address]- 7126 Jul, [facility] [place] [facility] [address] [id number] [place] [address]- 0350 Jul, [facility] [place] [facility] [address] [id number] [place] [address]- 3306 Jun, [facility] [place] [facility] [address] [id number] [place] [address]- 2067 Jun, [facility] [place] [facility] [address] [id number] [place] [address]- 9423 Jun, [facility] [place] [facility] [address] [id number] [place] [address]- 6353 Jun, [facility] [place] [facility] [address] [id number] [place] [address]- 5156 Jun, [facility] [place] [facility] [address] [id number] [place] [address]- 9751 Jun, [facility] [place] [facility] [address] [id number] [place] [address]- 2069 Jun, [facility] [place] [facility] [address] [id number] [place] [address]- 3824 May, [facility] [place] [facility] [address] [id number] [place] [address]- 6978 May, [facility] [place] [facility] [address] [id number] [place] [address]- 0660 May, [facility] [place] [facility] [address] [id number] [place] [address]- 6403 May, [facility] [place] [facility] [address] [id number] [place] [address]- 3541 May, 2013 [facility] [place] [facility] [address] [id number] [place] [address]- 8364 May, 2013 [facility] [place] [facility] [address] [id number] [place] [address]- 9843 May, 2013 [facility] [place] [facility] [address] [id number] [place] [address]- 1374 May, 2013 [facility] [place] [facility] [address] [id number] [place] [address]- 2137 May, [facility] [place] [facility] [address] [id number] [place] [address]- 4045 May, [facility] [place] [facility] [address] [id number] [place] [address]- 4952 May, [facility] [place] [facility] [address] [id number] [place] [address]- 9759 May, [facility] [place] [facility] [address] [id number] [place] [address]- 7854 Apr, [facility] [place] [facility] [address] [id number] [place] [address]- 8593 Apr, [facility] [place] [facility] [address] [id number] [place] [address]- 4154 Apr, [facility] [place] [facility] [address] [id number] [place] [address]- 3121 Apr, [facility] [place] [facility] [address] [id number] [place] [address]- 6699 Apr, [facility] [place] [facility] [address] [id number] [place] [address]- 9165 Apr, [facility] [place] [facility] [address] [id number] [place] [address]- 4224 Apr, [facility] [place] [facility] [address] [id number] [place] [address]- 5591 Apr, [facility] [place] [facility] [address] [id number] [place] [address]- 7935 Apr, [facility] [place] [facility] [address] [id number] [place] [address]- 5992 Apr, [facility] [place] [facility] [address] [id number] [place] [address]- 0192 March, [facility] [place] [facility] [address] [id number] [place] [address]- 7896 March, [facility] [place] [facility] [address] [id number] [place] [address]- 6646 March, [facility] [place] [facility] [address] [id number] [place] [address]- 9077 March, [facility] [place] [facility] [address] [id number] [place] [address]- 0757 March, [facility] [place] [facility] [address] [id number] [place] [address]- 3051 March, [facility] [place] [facility] [address] [id number] [place] [address]- 8102 Feb, [facility] [place] [facility] [address] [id number] [place] [address]- 9707 Feb, [facility] [place] [facility] [address] [id number] [place] [address]- 2288 Feb, [facility] [place] [facility] [address] [id number] [place] [address]- 6454 Feb, [facility] [place] [facility] [address] [id number] [place] [address]- 7568 Feb, [facility] [place] [facility] [address] [id number] [place] [address]- 9592 Feb, [facility] [place] [facility] [address] [id number] [place] [address]- 9299 Feb, [facility] [place] [facility] [address] [id number] [place] [address]- 6532 Feb, [facility] [place] [facility] [address] [id number] [place] [address]- 2545 Feb, [facility] [place] [facility] [address] [id number] [place] [address]- 8816 Feb, [facility] [place] [facility] [address] [id number] [place] [address]- 1368 Jan, [facility] [place] [facility] [address] [id number] [place] [address]- 4931 Jan, [facility] [place] [facility] [address] [id number] [place] [address]- 4066 Jan, [facility] [place] [facility] [address] [id number] [place] [address]- 2833 Jan, [facility] [place] [facility] [address] [id number] [place] [address]- 9576 Jan, [facility] [place] [facility] [address] [id number] [place] [address]- 0402 Jan, [facility] [place] [facility] [address] [id number] [place] [address]- 5192 Jan, [facility] [place] [facility] [address] [id number] [place] [address]- 0158 Jan, [facility] [place] [facility] [address] [id number] [place] [address]- 4992 Dec, [facility] [place] [facility] [address] [id number] [place] [address]- 4080 Dec, [facility] [place] [facility] [address] [id number] [place] [address]- 6356 Dec, [facility] [place] [facility] [address] [id number] [place] [address] Dec, [facility] [place] [facility] [address] [id number] [place] [address] Dec, [facility] [place] [facility] [address] [id number] [place] [address] Dec, [facility] [place] [facility] [address] [id number] [place] [address] Dec, [facility] [place] [facility] [address] [id number] [place] [address] Dec, [facility] [place] [facility] [address] [id number] [place] [address] Nov, [facility] [place] [facility] [address] [id number] [place] [address] Nov, [facility] [place] [facility] [address] [id number] [place] [address] Nov, [facility] [place] [facility] [address] [id number] [place] [address] Nov, [facility] [place] [facility] [address] [id number] [place] [address] Nov, [facility] [place] [facility] [address] [id number] [place] [address] Nov, [facility] [place] [facility] [address] [facility] [id number] [place] [address] Nov, [facility] [place] [facility] [address] [id number], [place] [address] Nov, [facility] [place] [facility] [address] [id number] [place] [address] Nov, [facility] [place] [facility] [address] [id number] [place] [address] Nov, [facility] [place] [facility] [address] [id number] [place] [address] Nov, [facility] [place] [facility] [address] [facility] [id number] [place] [address] Oct, [facility] [place] [facility] [address] [id number] [place] [address] Oct, [facility] [place] [facility] [address] [id number] [place] [address] Oct, [facility] [place] [facility] [address] [id number] [place] [address] Oct, [facility] [place] [facility] [address] [id number] [place] [address] Sep, [facility] [place] [facility] [address] [id number] [place] [address] Sep, [facility] [place] [facility] [address] [id number] [place] [address] Sep, [facility] [place] [facility] [address] [id number] [place] [address] Sep, [facility] [place] [facility] [address] [id number] [place] [address] Aug, [facility] [place] [facility] [address] [id number] [place] [address] Aug, [facility] [place] [facility] [address] [id number] [place] [address] Aug, [facility] [place] [facility] [address] [id number] [place] [address] Aug, [facility] [place] [facility] [address] [id number] [place] [address] Aug, [facility] [place] [facility] [address] [id number] [place] [address] Aug, [facility] [place] [facility] [address] [id number] [place] [address] Aug, [facility] [place] [facility] [address] [id number] [place] [address] Aug, [facility] [place] [facility] [address] [id number] [place] [address] 28 Sep, 2012 [facility] [place] [facility] [address] [id number] [place] [address] 27 Sep, 2012 [facility] [place] [facility] [address] [id number] [place] [address] 26 Sep, 2012 [facility] [place] [facility] [address] [id number] [place] [address] 24 Sep, 2012 [facility] [place] [facility] [address] [id number] [place] [address] 24 Sep, 2012 [facility] [place] [facility] [address] [id number] [place] [address] 23 Sep, 2012 [facility] [place] [facility] [address] [id number] [place] [address] 19 Jul, 2012 [facility] [place] [facility] [address] [id number] [place] [address] 18 Jul, 2012 [facility] [place] [facility] [address] [id number] [place] [address] 17 Jul, 2012 [facility] [place] [facility] [address] [id number] [place] [address] 16 Jul, 2012 [facility] [place] [facility] [address] [id number] [place] [address] 13 Jul, 2012 [facility] [place] [facility] [address] [id number] [place] [address] 13 Jul, 2012 [facility] [place] [facility] [address] [id number], [place] [address] 12 Jul, 2012 [facility] [place] [facility] [address] [id number] [place] [address] 11 Jul, 2012 [facility] [place] [facility] [address] [id number] [place] [address] 8446 04 Jul, 2012 [facility] [place] [facility] [address] [id number] [place] [address] 1023 30 Jun, 2013 [facility] [place] [facility] [address] [id number] [place] [address] Jun, [facility] [address] [id number] [place] [address] 4867 Jun, [facility] [place] [facility] [address] [id number] [place] [address] 45[address] May, [facility] [address] [id number] [place] [address] 0892 May, [facility] [place] [facility] [address] [id number] [place] [address] 60[address] May, [facility] [address] [id number] [place] [address] 1309 May, [facility] [place] [facility] [address] [id number] [place] [address]- 5569 Apr, [facility] [address] [id number] [place] [address] 2470 Apr, [facility] [place] [facility] [address] [id number] [place] [address] 8648 Apr, [facility] [place] [facility] [address] [id number] [place] [address]- 4380 Apr, [facility] [place] [facility] [address] [id number] [place] [address]- 6164 March, [facility] [address] [id number] [place] [address]- 6248 March, [facility] [place] [facility] [address] [id number] [place] [address]- 7653 March, [facility] [place] [facility] [address] [id number] [place] [address]- 7498 Feb, [facility] [place] [facility] [address] [id number] [place] [address] 6925 Feb, [facility] [place] [facility] [address] [id number] [place] [address]- 9226 Jan, [facility] [place] [facility] [address] [id number] [place] [address]- 5129 Jan, [facility] [place] [facility] [address] [id number] [place] [address]- 6716 Jan, [facility] [place] [facility] [address] [id number] [place] [address]- 5412 05 Jan, 2013 [facility] [place] [facility] [address] [id number] [place] [address]- 9265 Jan, [facility] [place] [facility] [address] [id number] [place] [address]- 6181 Dec, [facility] [place] [facility] [address] [id number] [place] [address]- 6846 Dec, [facility] [place] [facility] [address] [id number] [place] [address]- 9103 Dec, [facility] [place] [facility] [address] [id number] [place] [address]- 8051 Dec, [facility] [place] [facility] [address] [id number] [place] [address]- 6354 Dec, [facility] [place] [facility] [address] [id number] [place] [address]- 4019 Dec, [facility] [place] [facility] [address] [id number] [place] [address]- 3833 Dec, [facility] [place] [facility] [address] [id number] [place] [address] 2542 Dec, [facility] [place] [facility] [address] [id number] [place] [address]- 2811 Nov, [facility] [place] [facility] [address] [id number] [place] [address]- 7579 Nov, [facility] [place] [facility] [address] [id number] [place] [address]- 8874 Nov, [facility] [place] [facility] [address] [id number] [place] [address]- 8331 07 Nov, 2012 [facility] [address] [id number] [place] [address]- 9651 Nov, [facility] [place] [facility] [address] [id number] [place] [address]- 5216 Nov, [facility] [address] [id number] [place] [address]- 5651 Nov, [facility] [place] [facility] [address] [id number] [place] [address]- 5538 Oct, [facility] [address] [id number] [place] [address]- 6224 Oct, [facility] [place] [facility] [address] [id number] [place] [address]- 2886 Oct, [facility] [address] [id number] [place] [address]- 2598 Oct, [facility] [place] [facility] [address] [id number] [place] [address]- 7845 Oct, [facility] [place] [facility] [address] [id number] [place] [address]- 5979 Oct, [facility] [place] [facility] [address] [id number] [place] [address]- 6105 Oct, [facility] [place] [facility] [address] [id number] [place] [address]- 7428 Oct, [facility] [place] [facility] [address] [id number] [place] [address]- 8184 Sep, [facility] [place] [facility] [address] [id number] [place] [address]- 9221 Sep, [facility] [place] [facility] [address] [id number] [place] [address]- 5753 Sep, [facility] [place] [facility] [address] [id number] [place] [address]- 8847 Sep, [facility] [place] [facility] [address] [id number] [place] [address]- 7765 Sep, [facility] [place] [facility] [address] [id number] [place] [address]- 3548 Sep, [facility] [place] [facility] [address] [id number] [place] [address]- 0154 Sep, [facility] [place] [facility] [address] [id number] [place] [address]- 3680 Sep, [facility] [place] [facility] [address] [id number] [place] [address]- 1397 Sep, [facility] [place] [facility] [address] [id number] [place] [address]- 8272 Sep, [facility] [place] [facility] [address] [id number] [place] [address]- 8690 Sep, [facility] [place] [facility] [address] [id number] [place] [address]- 5173 Sep, [facility] [place] [facility] [address] [id number] [place] [address]- 6635 Sep, [facility] [place] [facility] [address] [id number] [place] [address]- 9957 Sep, [facility] [place] [facility] [address] [id number] [place] [address]- 8785 Sep, [facility] [place] [facility] [address] [id number] [place] [address]- 7692 Sep, [facility] [place] [facility] [address] [id number] [place] [address]- 1806 Sep, [facility] [place] [facility] [address] [id number] [place] [address]- 4664 Sep, [facility] [place] [facility] [address] [id number] [place] [address]- 2432 Sep, [facility] [place] [facility] [address] [id number], [place] [address]- 3285 Sep, [facility] [place] [facility] [address] [id number] [place] [address]- 9211 31 Aug, 2012 [facility] [place] [facility] [address] [id number] [place] [address] 31 Aug, 2012 [facility] [place] [facility] [address] [facility] [id number] [place] [address]- 8418 29 Aug, 2012 [facility] [place] [facility] [address] [id number], [place] [address] 6357 Aug, [facility] [place] [facility] [address] [id number] [place] [address]- 2321 27 Aug, 2012 [facility] [place] [facility] [address] [id number], [place] [address] 5849 18 Aug, 2012 [facility] [place] [facility] [address] [id number], [place] [address] 9916 18 Aug, 2012 [facility] [place] [facility] [address] [id number], [place] [address]- 3560 17 Aug, 2012 [facility] [place] [facility] [address] [id number], [place] [address]- 6376 16 Aug, 2012 [facility] [place] [facility] [address] [id number], [place] [address]- 8193 16 Aug, 2012 [facility] [place] [facility] [address] [id number], [place] [address]- 2818 15 Aug, 2012 [facility] [place] [facility] [address] [id number], [place] [address]- 6211 09 Aug, 2012 [facility] [place] [facility] [address] [id number], [place] [address]- 4348 05 Aug, 2012 [facility] [place] [facility] [address] [facility] [id number], [place] [address]- 3844 05 Aug, 2012 [facility] [place] [facility] [address] [facility] [id number], [place] [address]- 9090 Aug, [facility] [place] [facility] [address] [id number] [place] [address]- 3715 14 Jul, 2012 [facility] [address] [id number] [place] [address]- 4182 10 Jul, 2012 [facility] [address] [id number] [place] [address]- 4306 31 Jun, 2012 [facility] [address] [id number] [place] [address]- 9063 Jun, [facility] [address] [id number] [place] [address]- 4767 31 May, 2012 [facility] [address] [id number] [place] [address]- 9683 26 May, 2012 [facility] [address] [id number] [place] [address]- 2346 24 May, 2012 [facility] [address] [id number] [place] [address]- 2153 May, [facility] [address] [id number] [place] [address]- 1615 May, [facility] [address] [id number] [place] [address]- 0136 May, [facility] [address] [id number] [place] [address]- 9194 Apr, [facility] [address] [id number] [place] [address]- 1593 Apr, [facility] [address] [id number] [place] [address]- 0481 March, [facility] [place] [facility] [address] [id number] [place] [address]- 2197 March, [facility] [place] [facility] [address] [id number] [place] [address]- 1576 March, [facility] [address] [id number] [place] [address]- 7523 March, [facility] [address] [id number] [place] [address]- 2140 March, [facility] [place] [facility] [address] [id number] [place] [address]- 1871 March, [facility] [place] [facility] [address] [id number] [place] [address]- 0329 Feb, [facility] [place] [facility] [address] [id number] [place] [address]- 9275 Feb, [facility] [address] [id number] [place] [address]- 4844 Feb, [facility] [place] [facility] [address] [id number] [place] [address]- 9079 Feb, [facility] [place] [facility] [address] [id number] [place] [address]- 4600 Feb, [facility] [address] [id number] [place] [address]- 6788 Feb, [facility] [place] [facility] [address] [id number] [place] [address]- 3235 Feb, [facility] [place] [facility] [address] [id number] [place] [address]- 4297 Feb, [facility] [place] [facility] [address] [id number] [place] [address]- 5363 Feb, [facility] [place] [facility] [address] [id number], [place] [address]- 2898 Jan, [facility] [place] [facility] [address] [id number] [place] [address]- 4727 Jan, [facility] [place] [facility] [address] [id number] [place] [address]- 4401 Jan, [facility] [place] [facility] [address] [id number] [place] [address]- 7135 Jan, [facility] [place] [facility] [address] [id number], [place] [address]- 2117 21 Jan, 2012 [facility] [address] [id number] [place] [address]- 6429 20 Jan, 2012 [facility] [place] [facility] [address] [id number] [place] [address]- 4476 14 Jan, 2012 [facility] [place] [facility] [address] [facility] [id number] [place] [address]- 2866 09 Jan, 2012 [facility] [place] [facility] [address] [id number] [place] [address]- 9124 09 Jan, 2012 [facility] [place] [facility] [address] [id number] [place] [address]- 6062 08 Jan, 2012 [facility] [place] [facility] [address] [facility] [id number] [place] [address]- 3944 07 Jan, 2012 [facility] [address] [id number] [place] [address]- 2461 06 Jan, 2012 [facility] [place] [facility] [address] [facility] [id number] [place] [address]- 0394 02 Jan, 2012 [facility] [place] [facility] [address] [facility] [id number] [place] [address]- 1966 02 Jan, 2012 [facility] [place] [facility] [address] [facility] [id number] [place] [address]- 5481 28 Dec, 2011 [facility] [place] [facility] [address] [facility] [id number] [place] [address]- 3950 27 Dec, 2011 [facility] [place] [facility] [address] [facility] [id number] [place] [address]- 6243 25 Dec, 2011 [facility] [place] [facility] [address] [id number] [place] [address]- 2750 23 Dec, 2011 [facility] [place] [facility] [address] [facility] [id number] [place] [address]- 4586 16 Dec, 2011 [facility] [place] [facility] [address] [facility] [id number] [place] [address]- 8911 08 Dec, 2011 [facility] [place] [facility] [address] [id number] [place] [address]- 9680 Dec, [facility] [place] [facility] [address] [id number] [place] [address]- 4016 Dec, [facility] [place] [facility] [address] [id number] [place] [address]- 0926 Dec, [facility] [place] [facility] [address] [id number] [place] [address]- 5974 Nov, [facility] [address] [id number] [place] [address]- 0471 Nov, [facility] [place] [facility] [address] [id number] [place] [address]- 4042 Nov, [facility] [place] [facility] [address] [id number] [place] [address]- 3789 Nov, [facility] [address] [id number] [place] [address]- 2872 Oct, [facility] [place] [facility] [address] [id number] [place] [address]- 2703 Oct, [facility] [place] [facility] [address] [id number] [place] [address]- 5084 Oct, [facility] [place] [facility] [address] [id number], [place] [address]- 9230 Oct, [facility] [place] [facility] [address] [id number], [place] [address]- 5376 Oct, [facility] [place] [facility] [address] [id number] [place] [address]- 9118 Oct, [facility] [place] [facility] [address] [id number], [place] [address]- 3976 Oct, [facility] [place] [facility] [address] [id number], [place] [address]- 5786 Sep, [facility] [place] [facility] [address] [id number], [place] [address]- 3246 Sep, [facility] [place] [facility] [address] [id number] [place] [address]- 1653 Sep, [facility] [place] [facility] [address] [id number] [place] [address]- 8251 Sep, [facility] [place] [facility] [address] [facility] [id number] [place] [address]- 4768 Sep, [facility] [place] [facility] [address] [id number] [place] [address]- 6000 Sep, [facility] [place] [facility] [id number] [place] [address], [place] [address]- 6113 Sep, [facility] [place] [facility] [address] [id number] [place] [address]- 5386 Sep, [facility] [place] [facility] [address] [facility] [id number] [place] [address]- 5654 Sep, [facility] [place] [facility] [address] [id number] [place] [address]- 2511 Aug, [facility] [place] [facility] [address] [facility] [id number] [place] [address]- 8678 Aug, [facility] [place] [facility] [address] [facility] [id number] [place] [address]- 3602 Aug, [facility] [place] [facility] [address] [id number], [place] [address]- 9863 May, [facility] [place] [facility] [address] [id number], [place] [address]- 0763 Nov, [facility] [place] [facility] [address] [id number] [place] [address]- 6367 Oct, [facility] [place] [facility] [address] [facility] [id number] [place] [address]- 9055 30 Oct, 2010 [facility] [place] [facility] [address] [facility] [id number] [place] [address]- 3538 Oct, [facility] [place] [facility] [address] [id number] [place] [address]- 7516 02 Oct, 2010 [facility] [place] [facility] [address] [id number] [place] [address]- 9477 Oct, [facility] [place] [facility] [address] [id number] [place] [address]- 7996 Sep, [facility] [place] [facility] [address] [id number] [place] [address]- 2790 02 Sep, 2010 [facility] [place] [facility] [address] [id number] [place] [address]- 7486 14 Jul, 2010 [facility] [place] [facility] [address] [id number] [place] [address]- 3098 Oct, [facility] [place] [facility] [address] [id number] [place] [address]- 8664 Oct, [facility] [place] [facility] [address] [id number] [place] [address]- 9101 Oct, [facility] [place] [facility] [address] [id number] [place] [address]- 9954 Oct, [facility] [place] [facility] [address] [id number] [place] [address]- 7837 30 Sep, 2009 [facility] [place] [facility] [address] [facility] [id number] [place] [address]- 5252 Sep, [facility] [place] [facility] [address] [id number] [place] [address]- 7731 Sep, [facility] [place] [facility] [address] [id number], [place] [address]- 6369 04 Sep, 2009 [facility] [place] [facility] [address] [id number] [place] [address]- 9716 Sep, [facility] [place] [facility] [address] [id number] [place] [address]- 8876 11 Jul, 2009 [facility] [place] [facility] [address] [id number], [place] [address]- 1704 Apr, [facility] [address] [facility] [id number] [place] [address]- 1724 Dec, IMMUNIZATIONS No Known Immunizations SOCIAL HISTORY Never Assessed REASON FOR VISIT falling, ankle problems, right. h/o fx, reports repeated falls over last 2 weeks -----DBennettRN, A1C PLAN OF CARE Activity Details Follow Up Reg appt Reason: VITAL SIGNS Height 67 in 2018-05-17 Weight 194 lbs 2018-05-17 Temperature 98.0 degrees Fahrenheit 2018-05-17 Heart Rate 70 bpm 2018-05-17 Respiratory Rate 20 2018-05-17 BMI 30.38 kg/m2 2018-05-17 Blood pressure systolic 112 mmHg 2018-05-17 Blood pressure diastolic 70 mmHg 2018-05-17 MEDICATIONS Medication Instructions Dosage Frequency Start Date End Date Duration Status Metformin HCl 500 MG Orally Twice a day 1 tablet with meals 12h Active Prozac 40 mg Orally Once a day 1 capsule 24h 30 Active Amlodipine Besylate 5 MG Orally Once a day 1 tablet 24h Active Atorvastatin Calcium 40 MG TAKE ONE TABLET BY MOUTH DAILY 90 Active Gabapentin 300 MG TAKE TWO CAPSULES BY MOUTH THREE TIMES A DAY 90 Active Flonase 50 MCG/ACT Nasally twice a day 1 spray in each nostril 12h Apr, 30 day(s) Active Naprosyn 500 mg Orally 2 times a day 1 tablet with food or milk as needed 12h Apr, Active Levothyroxine Sodium 50 MCG TAKE ONE TABLET BY MOUTH DAILY 90 Active Protonix 40 MG Orally Once a day 1 tablet 24h Jan, 30 day(s) Active Test strips Test Strips subcutaneously 2 times a day, accucheck christiano 1 test strip Dec, Active Gabapentin 600 MG Orally Once a day 1 capsule before bedtime 24h Active Cyclobenzaprine HCl 10 mg Orally Three times a day 1 tablet as needed 8h Apr, Active Lisinopril 5 MG Orally Once a day 1 tablet 24h Active ProAir HFA 90 mcg/actuation inhale 2 puffs by Inhalation route every 4 hours as needed PRN shortness of breath/cough March, Active Doxycycline Hyclate 100 mg Orally Once a day 1 tablet 24h Apr, Apr, 07 days Active Tramadol HCl 50 mg Orally 3 times a day 1 tablet as needed 8h March, Active Trazodone HCl 100 mg Orally Once a day 1 tablet at bedtime 24h Apr, 30 day(s) Active RESULTS Name Result Date Reference Range A1C (IN HOUSE) 2018-05-17 A1C IN HOUSE 5.6 4.3 - 5.6 % Previous A1c 5.4 Lot [id number] Exp date 02/16 PROCEDURES Procedure Date Ordered Result Body Site GLYCATED HEMOGLOBIN TEST May 17, 2018 INSTRUCTIONS MEDICATIONS ADMINISTERED No Known Medications MEDICAL (GENERAL) HISTORY Type Description Date Medical History hypertension Medical History hyperlipidemia Medical History diabetes type II Medical History COPD Medical History asthma Surgical History hysterectomy Surgical History arthritis surgery Hospitalization History surgeries
--- OUTSIDE RECORDS SUMMARY | 2018-11-26 16:02 | XMS REPORT ---
Author Author KING FISHMAN Organization [facility] Address [address] [place] [address] Care Team Providers Care Claim Inspector Name Role Phone KING FISHMAN Unavailable PROBLEMS Type Condition ICD9-CM Code [id number] Code Onset Dates Condition Status SNOMED Code Problem Gastroesophageal reflux disease, esophagitis presence not specified K21.9 Active 130813460 Problem Lumbago with sciatica, right side M54.41 Active [id number] Problem Lumbago with sciatica, left side M54.42 Active 562117618 Problem Iron deficiency anemia due to chronic blood loss D50.0 Active 425053984 Problem Seizures R56.9 Active 64211952 Problem Cigarette nicotine dependence without complication F17.210 Active 91957970 Problem Other chronic pain G89.29 Active 82352134 Problem Chronic obstructive pulmonary disease, unspecified COPD type J44.9 Active 01308039 Problem Pain in right ankle and joints of right foot M25.571 Active 56826505557468 Problem Reactive depression F32.9 Active 54843584 Problem Mixed hyperlipidemia E78.2 Active 778243532 Problem Essential hypertension I10 Active 81998298 Problem Prediabetes R73.03 Active 146125842 Problem Acquired hypothyroidism E03.9 Active 614820366 ALLERGIES No Information ENCOUNTERS Encounter Location Date Diagnosis [facility] [address] [id number] [address] Jul, [id number] [place] [address]886- 9809 Jun, Pain in thoracic spine M54.6 [id number] [place] [address] 22170- 6657 Jun, Iron deficiency anemia due to chronic blood loss D50.0 and Hematochezia K92.1 [place] [id number] [place] [address] 28576- 5564 Jun, Gastroenteritis K52.9 and Abnormal RBC indices R71.8 [facility] [address] [address]- [address] Jun, [facility] [address] [address] 2540 Jun, Chest congestion R09.89 and Seizures R56.9 [facility] [address] [address]- 3065 May, Pain in thoracic spine M54.6 [facility] [address] [address]- 1816 May, [facility] [address] 20889- 9087 May, [facility] [address] 85656- 5478 May, [facility] [address] 8[address]78- 2204 May, Acute non-recurrent frontal sinusitis J01.10 and Dermatitis L30.9 [facility] [id number] [place] [address] 86713- 8895 May, [facility] [id number] [place] [address] 22889- 4897 May, Pain in thoracic spine M54.6 [facility] [id number] [place] [address] 79015- 2546 May, [facility] [address] 0[address]60- 8144 May, Acute nasopharyngitis J00 [facility] [id number] [place] [address] 36027- 2546 May, [facility] [address] 9[address]29- 6549 May, [facility] [id number] [address] 74[address] Apr, [facility] [id number] [place] [address] 05033- 1384 Apr, [facility] [id number] [place] [address] 35065- 8516 Apr, [facility] [id number] [place] [address] 66948- 0541 Apr, [facility] [id number] [place] [address] 45113- 8732 Apr, Pain in right ankle and joints of right foot M25.571 [place] [place] [id number] [place] [address] 77721- 2763 Apr, [place] [id number] [place] [address] 09028- 0079 Apr, Bronchitis J40 ; Pain in right ankle and joints of right foot M25.571 ; Other chronic pain G89.29 ; Prediabetes R73.03 ; Chronic obstructive pulmonary disease, unspecified COPD type J44.9 and Cigarette nicotine dependence without complication F17.210 [facility] [id number] [place] [address] 40703 -0779 Apr, Seasonal allergic rhinitis, unspecified trigger J30.2 [address] [place] [id number] [place] [address] 12805- 9579 Apr, Onychomycosis B35.1 ; Onychocryptosis L60.0 and DM 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 [place] [id number] [place] [address] 78378- 9627 Apr, Reactive depression F32.9 ; Thoracic myofascial strain, initial encounter S29.019A and Leg cramps R25.2 [facility] [id number] [place] [address] 88029- 5062 March, [address] [id number] [place] [address] 22560- 6475 March, Type 2 diabetes mellitus with hyperglycemia E11.65 [address] 75360- 5168 March, Reactive depression F32.9 [address] 61899- 0980 March, Pain in thoracic spine M54.6 and Other chronic pain G89.29 [place] [address] 96578- 9904 Feb, [place] [address] 56306- 7979 Jan, Reactive depression F32.9 ; Essential hypertension I10 ; Gastroesophageal reflux disease, esophagitis presence not specified K21.9 ; Lumbago with sciatica, left side M54.42 and Lumbago with sciatica, right side M54.41 [address] [address] 66396- 7035 Jan, Reactive depression F32.9 and Pharyngoesophageal dysphagia R13.14 [place] [address] 94185- 6928 Jan, [address] 16024- 6704 Jan, Encounter for immunization Z23 [place] 02532- 2752 Jan, Onychomycosis B35.1 and DM 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 [place] 34501- 7912 Jan, [address] 04099- 8923 Jan, Prediabetes R73.03 [place] 19155- 3302 Dec, [facility] [id number] [place] [address] 55895- 6756 Dec, Essential hypertension I10 ; Mixed hyperlipidemia E78.2 ; Acquired hypothyroidism E03.9 ; Reactive depression F32.9 and Prediabetes R73.03 [facility] [id number] [place] [address] 96953- 1375 Dec, [facility] [id number] [place] [address] 67128- 0855 Dec, [facility] [id number] [place] [address] 95819- 3840 Dec, DM 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 [facility] [id number] [place] [address] 77394 -1016 Dec, Bruise T14.8XXA ; Type 2 diabetes mellitus with hyperglycemia E11.65 and prison current use of insulin Z79.4 [place] [id number] [place] [address] 58506- 2190 Oct, [place] [id number] [place] [address] 77221- 7538 March, Onychomycosis B35.1 and DM 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 [facility] [id number] [place] [address] 77509- 3364 Jun, [facility] [id number] [place] [address] 89882- 9080 Jun, [facility] [id number] [place] [address] 06692- 2323 Jun, COPD with acute exacerbation 491.21 [facility] [id number] [place] [address] 66328- 0204 Apr, [facility] [id number] [place] [address] 59145- 9261 Feb, [facility] [place] [facility] [address] [id number] [place] [address]- 0641 13 Feb, 2015 [facility] [place] [facility] [address] [id number] [place] [address]- 0734 26 Jan, 2015 [facility] [place] [facility] [address] [id number] [place] [address]- 8326 Jan, [facility] [place] [facility] [address] [id number] [place] [address]- 9430 Jan, [facility] [place] [facility] [address] [id number] [place] [address]- 7916 Jan, [facility] [place] [facility] [address] [id number] [place] [address]- 9584 24 Jan, 2015 [facility] [place] [facility] [address] [id number] [place] [address]- 1893 Jan, [facility] [place] [facility] [address] [id number] [place] [address]- 1909 Jan, [facility] [place] [facility] [address] [id number] [place] [address]- 6705 Jan, [facility] [place] [facility] [address] [id number] [place] [address]- 6904 23 Jan, 2015 [facility] [place] [facility] [address] [id number] [place] [address]- 5662 19 Jan, 2015 [facility] [place] [facility] [address] [id number] [place] [address]- 7431 19 Jan, 2015 [facility] [place] [facility] [address] [id number] [place] [address]- 8354 18 Jan, 2015 [facility] [place] [facility] [address] [id number] [place] [address]- 1579 18 Jan, 2015 [facility] [place] [facility] [address] [id number] [place] [address]- 5683 16 Jan, 2015 [facility] [place] [facility] [address] [id number] [place] [address]- 7217 16 Jan, 2015 [facility] [place] [facility] [address] [id number] [place] [address]- 7142 16 Jan, 2015 [facility] [place] [facility] [address] [id number] [place] [address]- 2447 16 Jan, 2015 [facility] [place] [facility] [address] [id number] [place] [address]- 9020 15 Jan, 2015 [facility] [place] [facility] [address] [id number] [place] [address]- 5957 13 Jan, 2015 [facility] [place] [facility] [address] [id number] [place] [address]- 1333 13 Jan, 2015 [facility] [place] [facility] [address] [id number] [place] [address]- 5283 13 Jan, 2015 [facility] [place] [facility] [address] [id number] [place] [address]- 2763 13 Jan, 2015 [facility] [place] [facility] [address] [id number] [place] [address]- 0596 12 Jan, 2015 [facility] [place] [facility] [address] [id number] [place] [address]- 7038 04 Jan, 2015 [facility] [place] [facility] [address] [id number] [place] [address]- 3291 04 Jan, 2015 [facility] [place] [facility] [address] [id number] [place] [address]- 5346 24 Dec, 2014 [facility] [place] [facility] [address] [id number] [place] [address]- 2822 Dec, [facility] [place] [facility] [address] [id number] [place] [address]- 7264 Dec, [facility] [place] [facility] [address] [id number] [place] [address]- 2118 Dec, [facility] [place] [facility] [address] [id number] [place] [address]- 6368 23 Dec, 2014 [facility] [place] [facility] [address] [id number] [place] [address]- 8373 Dec, 2014 [facility] [place] [facility] [address] [id number] [place] [address]- 2441 Dec, 2014 [facility] [place] [facility] [address] [id number] [place] [address]- 2342 Dec, 2014 [facility] [place] [facility] [address] [id number] [place] [address]- 6367 Dec, 2014 [facility] [place] [facility] [address] [id number] [place] [address]- 5020 Dec, 2014 [facility] [place] [facility] [address] [id number] [place] [address]- 0158 Dec, 2014 [facility] [place] [facility] [address] [id number] [place] [address]- 3925 Dec, [facility] [place] [facility] [address] [id number] [address]- 5815 Nov, [facility] [place] [facility] [address] [id number] [place] [address]- 7206 Nov, [facility] [place] [facility] [address] [id number] [place] [address]- 6807 Nov, [facility] [place] [facility] [address] [id number] [place] [address]- 4513 Nov, [facility] [place] [facility] [address] [id number] [address]- 4993 Nov, [facility] [place] [facility] [address] [id number] [address]- 5197 Nov, [facility] [place] [facility] [address] [id number] [place] [address]- 5155 Nov, [facility] [place] [facility] [address] [id number] [place] [address]- 5652 15 Nov, 2014 [facility] [place] [facility] [address] [id number] [place] [address]- 9757 Nov, [facility] [address] [id number] [place] [address]- 3340 Nov, [facility] [place] [facility] [address] [id number] [place] [address]- 0788 Nov, [facility] [place] [facility] [address] [facility] [id number] [place] [address]- 1509 Nov, [facility] [place] [facility] [address] [id number] [place] [address]- 0176 Oct, [facility] [place] [facility] [address] [id number] [place] [address]- 8082 Oct, [facility] [place] [facility] [address] [id number] [place] [address]- 7847 Oct, [facility] [address] [id number] [place] [address]- 2721 Oct, [facility] [place] [facility] [address] [id number] [place] [address]- 8153 Oct, [facility] [place] [facility] [address] [id number] [place] [address]- 9556 Oct, [facility] [place] [facility] [address] [facility] [id number] [place] [address]- 0899 Oct, [facility] [place] [facility] [address] [id number] [place] [address]- 5894 Oct, [facility] [place] [facility] [address] [id number] [place] [address]- 5007 Oct, [facility] [place] [facility] [address] [id number] [place] [address]- 7999 Oct, [facility] [place] [facility] [address] [id number] [place] [address]- 5865 16 Oct, 2014 [facility] [place] [facility] [address] [id number] [place] [address]- 7538 16 Oct, 2014 [facility] [place] [facility] [address] [id number] [place] [address]- 0520 15 Oct, 2014 [facility] [place] [facility] [address] [id number] [place] 3160 Oct, [facility] [place] [facility] [address] [id number] [place] [address]- 2710 Oct, [facility] [place] [facility] [address] [id number] [place] 7599 Sep, [facility] [place] [facility] [address] [id number] [place] [address]- 8228 Sep, [facility] [place] [facility] [address] [id number] [place] [address]- 1114 Sep, [facility] [place] [facility] [address] [id number] [place] [address]- 8388 Sep, [facility] [place] [facility] [address] [id number] [place] [address]- 4155 Aug, [facility] [place] [facility] [address] [id number] [place] [address]- 4843 Aug, [facility] [place] [facility] [address] [id number] [place] [address]- 5565 Aug, [facility] [place] [facility] [address] [id number] [place] [address]- 0802 Aug, [facility] [place] [facility] [address] [id number] [place] [address]- 7059 Aug, [facility] [place] [facility] [address] [id number] [place] [address]- 0403 Aug, [facility] [place] [facility] [address] [id number] [place] [address]- 1304 Jul, [facility] [place] [facility] [address] [id number] [place] [address]- 6376 29 Jul, 2014 [facility] [place] [facility] [address] [id number] [place] [address]- 9598 Jul, [facility] [place] [facility] [address] [id number] [place] [address]- 5960 Jul, [facility] [place] [facility] [address] [id number] [place] [address]- 2083 Jul, [facility] [place] [facility] [address] [id number] [place] [address]- 7900 Jul, [facility] [place] [facility] [address] [id number] [place] [address]- 8112 Jun, [facility] [place] [facility] [address] [id number] [place] [address]- 3858 Jun, [facility] [place] [facility] [address] [id number] [place] [address]- 9050 Jun, [facility] [place] [facility] [address] [id number] [place] [address]- 8447 Jun, [facility] [place] [facility] [address] [id number] [place] [address]- 4935 Jun, [facility] [place] [facility] [address] [id number] [place] [address]- 9324 Jun, [facility] [place] [facility] [address] [id number] [place] [address]- 5022 Jun, [facility] [place] [facility] [address] [id number] [place] [address]- 9373 May, [facility] [place] [facility] [address] [id number] [place] [address]- 7830 May, [facility] [place] [facility] [address] [id number] [place] [address]- 3137 May, [facility] [place] [facility] [address] [id number] [place] [address]- 8649 May, [facility] [place] [facility] [address] [id number] [place] [address]- 8511 May, [facility] [place] [facility] [address] [id number] [place] [address]- 3284 May, 2013 [facility] [place] [facility] [address] [id number] [place] [address]- 1620 May, 2013 [facility] [place] [facility] [address] [id number] [place] [address]- 1668 May, 2013 [facility] [place] [facility] [address] [id number] [place] [address]- 1935 May, 2013 [facility] [place] [facility] [address] [id number] [place] [address]- 2914 May, 2013 [facility] [place] [facility] [address] [id number] [place] [address]- 9259 May, [facility] [place] [facility] [address] [id number] [place] [address]- 8581 May, [facility] [place] [facility] [address] [id number] [place] [address]- 2610 Apr, [facility] [place] [facility] [address] [id number] [place] [address]- 2455 Apr, [facility] [place] [facility] [address] [id number] [place] [address]- 4115 Apr, [facility] [place] [facility] [address] [id number] [place] [address]- 0655 Apr, [facility] [place] [facility] [address] [id number] [place] [address]- 1098 Apr, [facility] [place] [facility] [address] [id number] [place] [address]- 8356 Apr, [facility] [place] [facility] [address] [id number] [place] [address]- 5258 Apr, [facility] [place] [facility] [address] [id number] [place] [address]- 3560 Apr, [facility] [place] [facility] [address] [id number] [place] [address]- 0331 Apr, [facility] [place] [facility] [address] [id number] [place] [address]- 5152 Apr, [facility] [place] [facility] [address] [id number] [place] [address]- 6185 March, [facility] [place] [facility] [address] [id number] [place] [address]- 6136 March, [facility] [place] [facility] [address] [id number] [place] [address]- 4825 March, [facility] [place] [facility] [address] [id number] [place] [address]- 4026 March, [facility] [place] [facility] [address] [id number] [place] [address]- 9313 March, [facility] [place] [facility] [address] [id number] [place] [address]- 2968 March, [facility] [place] [facility] [address] [id number] [place] [address]- 6786 Feb, [facility] [place] [facility] [address] [id number] [place] [address]- 5423 Feb, [facility] [place] [facility] [address] [id number] [place] [address]- 7898 Feb, [facility] [place] [facility] [address] [id number] [place] [address]- 1711 Feb, [facility] [place] [facility] [address] [id number] [place] [address] Feb, [facility] [place] [facility] [address] [id number] [place] [address] Feb, [facility] [place] [facility] [address] [id number] [place] [address] Feb, [facility] [place] [facility] [address] [id number] [place] [address] Feb, [facility] [place] [facility] [address] [id number] [place] [address] Feb, [facility] [place] [facility] [address] [id number] [place] [address] Feb, [facility] [place] [facility] [address] [id number] [place] [address] Jan, [facility] [place] [facility] [address] [id number] [place] [address] Jan, [facility] [place] [facility] [address] [id number] [place] [address] Jan, [facility] [place] [facility] [address] [id number] [place] [address] Jan, [facility] [place] [facility] [address] [id number] [place] [address] Jan, [facility] [place] [facility] [address] [facility] [id number] [place] [address]- [address] Jan, [facility] [place] [facility] [address] [id number] [place] [address] Jan, [facility] [place] [facility] [address] [id number] [place] [address] Jan, [facility] [place] [facility] [address] [facility] [id number] [place] [address] Dec, [facility] [place] [facility] [address] [id number] [place] [address]245 Dec, [facility] [place] [facility] [address] [id number] [place] [address] Dec, [facility] [place] [facility] [address] [id number] [place] [address] Dec, [facility] [place] [facility] [address] [id number] [place] [address]57 Dec, [facility] [place] [facility] [address] [facility] [id number] [place] [address] Dec, [facility] [place] [facility] [address] [id number] [place] [address] Dec, [facility] [place] [facility] [address] [id number] [place] [address] Dec, [facility] [place] [facility] [address] [id number] [place] [address] Nov, [facility] [place] [facility] [address] [id number] [place] [address] Nov, [facility] [place] [facility] [address] [id number] [place] [address] Nov, [facility] [place] [facility] [address] [id number] [place] [address] 1994 Nov, [facility] [place] [facility] [address] [id number] [place] [address]- [address]70 Nov, [facility] [place] [facility] [address] [id number] [place] [address] Nov, [facility] [place] [facility] [address] [id number] [place] [address] Nov, [facility] [place] [facility] [address] [id number] [place] [address]- [address] Nov, [facility] [place] [facility] [address] [id number] [place] [address] Nov, [facility] [place] [facility] [address] [id number] [place] [address] Nov, [facility] [place] [facility] [address] [id number] [place] [address]28 Nov, [facility] [place] [facility] [address] [id number] [place] [address] Oct, [facility] [place] [facility] [address] [id number] [place] [address] Oct, [facility] [place] [facility] [address] [id number] [place] [address] Oct, [facility] [place] [facility] [address] [id number] [place] [address] Oct, [facility] [place] [facility] [address] [id number] [place] [address] Sep, [facility] [place] [facility] [address] [id number] [place] [address]- [address]645 Sep, [facility] [place] [facility] [address] [id number] [place] [address]- [address] Sep, [facility] [place] [facility] [address] [id number] [place] [address]- 8568 Sep, [facility] [place] [facility] [address] [id number] [place] [address] Aug, [facility] [place] [facility] [address] [id number] [place] [address] Aug, [facility] [place] [facility] [address] [id number] [place] [address] 25[address] Aug, [facility] [place] [facility] [address] [id number] [place] [address] Aug, [facility] [place] [facility] [address] [id number] [place] [address]861 Aug, [facility] [place] [facility] [address] [id number] [address] Aug, [facility] [place] [facility] [address] [id number] [address] Aug, [facility] [place] [facility] [address] [id number] [place] [address] Aug, [facility] [place] [facility] [address] [id number] [address] Jul, [facility] [place] [facility] [address] [id number] [place] [address]- [address]77 Jul, [facility] [place] [facility] [address] [id number] [place] [address] 26 Sep, 2012 [facility] [address] [id number] [place] [address] 2546 24 Sep, 2012 [facility] [address] [id number] [place] [address] 2546 24 Jul, 2012 [facility] [address] [id number] [place] [address] 2546 23 Sep, 2012 [facility] [address] [id number] [place] [address] 2542 19 Sep, 2012 [facility] [address] [id number] [place] [address] 6587 18 Jul, 2012 [facility] [address] [id number] [place] [address] 2530 17 Jul, 2012 [facility] [address] [id number] [place] [address] 2547 16 Jul, 2012 [facility] [address] [id number] [place] [address] 8677 13 Jul, 2012 [facility] [address] [id number] [place] [address] 254 13 Jul, 2012 [facility] [address] [id number] [place] [address] 1550 12 Jul, 2012 [facility] [address] [id number] [place] [address] 2540 11 Jul, 2012 [facility] [address] [id number] [place] [address]- 2543 04 Jul, 2012 [facility] [place] [facility] [address] [id number] [place] [address]- 1145 30 Jun, 2013 [facility] [place] [facility] [address] [id number] [place] [address]- 2545 Jun, [facility] [address] [id number] [place] [address]- 3170 Jun, [facility] [address] [id number] [place] [address]- 6695 May, [facility] [place] [facility] [address] [id number] [place] [address]- 9973 May, [facility] [place] [facility] [address] [id number] [place] [address]- 6732 May, [facility] [place] [facility] [address] [id number] [place] [address]- 4530 May, [facility] [place] [facility] [address] [id number] [place] [address]- 1077 Apr, [facility] [place] [facility] [address] [id number] [place] [address]- 2595 Apr, [facility] [place] [facility] [address] [id number] [place] [address]- 7015 Apr, [facility] [place] [facility] [address] [id number] [place] [address]- 0085 Apr, [facility] [place] [facility] [address] [id number] [place] [address]- 1088 March, [facility] [place] [facility] [address] [id number] [place] [address]- 2248 March, [facility] [place] [facility] [address] [id number] [place] [address]- 3883 March, [facility] [place] [facility] [address] [id number] [place] [address]- 3074 Feb, [facility] [place] [facility] [address] [id number] [place] [address]- 5197 Feb, [facility] [place] [facility] [address] [id number] [place] [address]- 8666 Jan, [facility] [place] [facility] [address] [id number] [place] [address]- 5044 Jan, [facility] [place] [facility] [address] [id number] [address]- 1847 Jan, [facility] [address] [id number] [place] [address]- 8778 Jan, [facility] [address] [id number] [place] [address]- 4106 Jan, [facility] [address] [id number] [place] [address]- 6456 Dec, [facility] [address] [id number] [place] [address]- 3984 Dec, [facility] [address] [id number] [place] [address]- 7147 Dec, [facility] [address] [id number] [place] [address]- 2276 Dec, [facility] [address] [id number] [place] [address] 1953 Dec, [facility] [address] [id number] [place] [address]- 3217 Dec, [facility] [address] [id number] [place] [address]- 1117 Dec, [facility] [address] [facility] [id number] [place] [address]- 3358 Dec, [facility] [address] [id number] [place] [address]- 3081 Nov, [facility] [address] [id number] [place] [address] 254 Nov, [facility] [place] [facility] [address] [id number] [place] [address]- 0736 Nov, [facility] [address] [id number] [place] [address]- 3262 Nov, [facility] [address] [facility] [id number] [place] [address]- 3688 Nov, [facility] [place] [facility] [address] [id number] [place] [address]- 5540 Nov, [facility] [place] [facility] [address] [id number] [place] [address]- 3875 Nov, [facility] [place] [facility] [address] [id number] [place] [address]- 0670 Oct, [facility] [place] [facility] [address] [id number] [place] [address]- 7082 Oct, [facility] [place] [facility] [address] [id number] [place] [address]- 4687 Oct, [facility] [place] [facility] [address] [id number] [place] [address]- 7299 Oct, [facility] [place] [facility] [address] [id number] [place] [address]- 2354 Oct, [facility] [place] [facility] [address] [id number] [place] [address]- 8369 Oct, [facility] [place] [facility] [address] [id number] [place] [address]- 9918 Oct, [facility] [place] [facility] [address] [id number] [place] [address]- 5499 Oct, [facility] [place] [facility] [address] [id number] [address]- 278[address] Sep, [facility] [place] [facility] [address] [id number] [address]- 9402 Sep, [facility] [place] [facility] [address] [id number] [place] [address]- 8064 Sep, [facility] [place] [facility] [address] [id number] [place] [address]- 2123 Sep, [facility] [place] [facility] [address] [id number] [place] [address]- 1625 Sep, [facility] [place] [facility] [address] [id number] [address]- 4983 Sep, [facility] [place] [facility] [address] [id number] [place] [address]- 8037 Sep, [facility] [place] [facility] [address] [id number] [place] [address]- 6447 Sep, [facility] [place] [facility] [address] [facility] [id number] [place] [address]- 2735 Sep, [facility] [place] [facility] [address] [id number] [place] [address]- 9771 Sep, [facility] [place] [facility] [address] [facility] [id number] [place] [address], [place] [address]- 1190 Sep, [facility] [place] [facility] [address] [facility] [id number] [place] [address]- 7581 Sep, [facility] [place] [facility] [id number] [address]- 5073 Sep, [facility] [place] [facility] [address] [facility] [id number] [place] [address]- 9025 Sep, [facility] [place] [facility] [address] [id number] [place] [address]- 0925 Sep, [facility] [place] [facility] [address] [id number] [place] [address]- 7037 Sep, [facility] [place] [facility] [address] [facility] [id number] [place] [address]- 6046 Sep, [facility] [place] [facility] [address] [facility] [id number] [place] [address]- 0322 Sep, [facility] [place] [facility] [address] [facility] [id number] [place] [address]- 0157 Sep, [facility] [place] [facility] [address] [facility] [id number] [place] [address]- 7032 Sep, [facility] [place] [facility] [address] [id number] [place] [address]- 6804 Aug, [facility] [place] [facility] [address] [id number] [place] [address]- 7417 31 Aug, 2011 [facility] [place] [facility] [address] [id number] [place] [address]- 4816 29 Aug, 2011 [facility] [place] [facility] [address] [id number] [place] [address]- 0576 27 Aug, 2011 [facility] [place] [facility] [address] [id number] [place] [address]- 9903 27 Aug, 2011 [facility] [place] [facility] [address] [id number] [place] [address]- 1649 18 Aug, 2011 [facility] [place] [facility] [address] [id number] [place] [address]- 2255 18 Aug, 2012 [facility] [place] [facility] [address] [id number] [place] [address]- 9957 17 Aug, 2012 [facility] [place] [facility] [address] [id number] [place] [address]- 5622 16 Aug, 2012 [facility] [place] [facility] [address] [id number] [place] [address]- 1181 16 Aug, 2012 [facility] [place] [facility] [address] [id number] [place] [address]- 8237 15 Aug, 2012 [facility] [place] [facility] [address] [id number] [place] [address]- 7007 09 Aug, 2012 [facility] [place] [facility] [address] [id number] [place] [address]- 2426 05 Aug, 2012 [facility] [place] [facility] [address] [id number] [place] [address]- 7357 05 Aug, 2012 [facility] [place] [facility] [address] [id number] [place] [address]- 3572 04 Aug, 2012 [facility] [place] [facility] [address] [id number] [place] [address]- 7885 14 Jul, 2012 [facility] [place] [facility] [address] [id number] [place] [address]- 9043 Jul, [facility] [place] [facility] [address] [id number] [place] [address]- 0733 Jun, [facility] [place] [facility] [address] [id number] [place] [address]- 2953 Jun, [facility] [place] [facility] [address] [id number] [place] [address]- 8532 May, [facility] [place] [facility] [address] [id number] [place] [address]- 5317 May, [facility] [place] [facility] [address] [id number] [place] [address]- 0015 May, [facility] [place] [facility] [address] [id number] [place] [address]- 7560 May, [facility] [place] [facility] [address] [id number] [place] [address]- 8785 May, [facility] [place] [facility] [address] [id number] [place] [address]- 1755 May, [facility] [place] [facility] [address] [id number] [place] [address]- 2947 Apr, [facility] [place] [facility] [address] [id number] [place] [address]- 2426 Apr, [facility] [place] [facility] [address] [id number] [place] [address]- 5227 March, [facility] [place] [facility] [address] [id number] [place] [address]- 3017 March, [facility] [place] [facility] [address] [id number] [place] [address]- 0574 March, [facility] [place] [facility] [address] [id number] [place] [address]- 1451 March, [facility] [place] [facility] [address] [id number] [place] [address]- 6549 March, [facility] [place] [facility] [address] [id number] [place] [address]- 0102 March, [facility] [address] [id number] [place] [address]- 0296 Feb, [facility] [place] [facility] [address] [id number] [place] [address]- 6026 Feb, [facility] [address] [id number] [place] [address]- 5316 Feb, [facility] [place] [facility] [address] [id number] [place] [address]- 6826 Feb, [facility] [place] [facility] [address] [id number] [place] [address]- 4114 Feb, [facility] [place] [facility] [address] [id number] [place] [address]- 6066 Feb, [facility] [address] [id number] [place] [address]- 3612 Feb, [facility] [place] [facility] [address] [id number] [place] [address]- 5045 Feb, [facility] [place] [facility] [address] [id number] [place] [address]- 8532 Feb, [facility] [address] [id number] [place] [address]- 0332 Jan, [facility] [place] [facility] [address] [id number] [place] [address]- 2783 Jan, [facility] [place] [facility] [address] [id number] [place] [address]- 9846 Jan, [facility] [place] [facility] [address] [id number] [place] [address]- 3888 Jan, [facility] [place] [facility] [address] [id number] [place] [address]- 1566 Jan, [facility] [place] [facility] [address] [id number] [place] [address]- 4723 Jan, [facility] [place] [facility] [address] [id number] [place] [address]- 9487 14 Jan, 2012 [facility] [place] [facility] [address] [id number] [place] [address]- 8182 Jan, [facility] [place] [facility] [address] [id number] [place] 8716 Jan, [facility] [place] [facility] [address] [id number] [place] [address]- 4004 08 Jan, 2012 [facility] [place] [facility] [address] [id number] [place] [address]- 5889 07 Jan, 2012 [facility] [place] [facility] [address] [id number] [place] [address]- 2333 06 Jan, 2012 [facility] [place] [facility] [address] [id number] [place] [address]- 8201 Jan, [facility] [place] [facility] [address] [id number] [place] [address]- 2163 Jan, [facility] [place] [facility] [address] [id number] [place] [address]- 8335 Dec, [facility] [place] [facility] [address] [id number] [place] [address]- 3469 Dec, [facility] [place] [facility] [address] [id number] [place] [address]- 3392 Dec, [facility] [place] [facility] [address] [id number] [place] [address]- 2833 23 Dec, 2011 [facility] [place] [facility] [address] [id number] [place] [address]- 4079 16 Dec, 2011 [facility] [place] [facility] [address] [id number] [place] [address]- 9896 08 Dec, 2011 [facility] [place] [facility] [address] [id number] [place] [address]- 2294 08 Dec, 2011 [facility] [place] [facility] [address] [id number] [place] [address]- 2613 07 Dec, 2011 [facility] [address] [id number] [place] [address]- 1016 Dec, [facility] [address] [id number] [place] [address]- 7176 Nov, [facility] [address] [id number] [place] [address]- 5712 Nov, [facility] [address] [id number] [place] [address]- 6937 Nov, [facility] [address] [id number] [place] [address]- 0696 Nov, [facility] [address] [id number] [place] [address]- 3597 Oct, [facility] [address] [id number] [place] [address]- 7797 Oct, [facility] [address] [id number] [place] [address]- 6073 Oct, [facility] [address] [id number] [place] [address]- 0016 Oct, [facility] [address] [id number] [place] [address]- 0007 Oct, [facility] [address] [id number] [place] [address]- 6456 Oct, [facility] [address] [id number] [place] [address]- 5697 Oct, [facility] [place] [facility] [address] [id number] [place] [address]- 2826 Sep, [facility] [place] [facility] [address] [id number] [place] [address]- 0224 Sep, [facility] [address] [id number] [place] [address]- 1546 Sep, [facility] [place] [facility] [address] [id number] [place] [address]- 6201 Sep, [facility] [place] [facility] [address] [id number] [place] 6607 Sep, [facility] [place] [facility] [address] [id number] [place] [address]- 9572 Sep, [facility] [place] [facility] [address] [id number] [place] [address]- 7274 Sep, [facility] [place] [facility] [address] [id number] [place] [address]- 7866 Sep, [facility] [place] [facility] [address] [id number] [place] [address]- 6558 Sep, [facility] [place] [facility] [address] [id number] [place] [address]- 7449 Aug, [facility] [place] [facility] [address] [id number] [place] [address]- 6125 Aug, [facility] [place] [facility] [address] [id number] [place] [address]- 5618 Aug, [facility] [place] [facility] [address] [id number] [place] [address]- 2313 May, [facility] [place] [facility] [address] [id number] [place] [address]- 3834 Nov, [facility] [place] [facility] [address] [id number] [place] [address]- 6668 Oct, [facility] [place] [facility] [address] [id number] [place] [address]- 6056 Oct, [facility] [place] [facility] [address] [id number] [place] [address]- 9163 Oct, [facility] [place] [facility] [address] [id number] [place] [address]- 8667 Oct, [facility] [place] [facility] [address] [id number] [address]- 2720 Oct, [facility] [address] [facility] [id number] [place] [address]- 1446 03 Sep, 2010 [facility] [address] [facility] [id number] [place] [address]- 6406 Sep, [facility] [address] [facility] [id number] [place] [address]- 0126 14 Jul, 2010 [facility] [address] [facility] [id number] [place] [address]- 6215 31 Oct, 2009 [facility] [address] [facility] [id number] [place] [address]- 6001 Oct, [facility] [address] [facility] [id number] [place] [address]- 3315 Oct, [facility] [address] [facility] [id number] [place] [address]- 6134 Oct, [facility] [address] [facility] [id number] [place] [address]- 1355 30 Sep, 2009 [facility] [address] [facility] [id number] [address] Sep, [facility] [address] [facility] [id number] [place] [address] Sep, [facility] [address] [facility] [id number] [place] [address] Sep, [facility] [address] [facility] [id number] [place] [address] Sep, [facility] [address] [facility] [id number] [place] [address] 11 Jul, 2009 [facility] [address] [facility] [id number] [place] [address] Apr, [facility] [address] [facility] [id number] [place] [address] 12 Dec, 2008 IMMUNIZATIONS No Known Immunizations SOCIAL HISTORY Never Assessed REASON FOR VISIT [facility] PLAN OF CARE VITAL SIGNS MEDICATIONS Unknown Medications RESULTS No Results PROCEDURES No Known procedures INSTRUCTIONS MEDICATIONS ADMINISTERED No Known Medications MEDICAL (GENERAL) HISTORY Type Description Date Medical History hypertension Medical History hyperlipidemia Medical History diabetes type II Medical History COPD Medical History asthma Surgical History hysterectomy Surgical History arthritis surgery Hospitalization History surgeries
--- OUTSIDE RECORDS SUMMARY | 2018-11-26 16:03 | XMS REPORT ---
Author Author KING FISHMAN Organization [facility] Address [address] [place] [address] Care Team Providers Care Prop And Effects Designer Name Role Phone KING FISHMAN Unavailable PROBLEMS Type Condition ICD9-CM Code GCN32-FI Code Onset Dates Condition Status SNOMED Code Problem Gastroesophageal reflux disease, esophagitis presence not specified K21.9 Active 219839510 Problem Lumbago with sciatica, right side M54.41 Active [id number] Problem Lumbago with sciatica, left side M54.42 Active 429799620 Problem Iron deficiency anemia due to chronic blood loss D50.0 Active 034661425 Problem Seizures R56.9 Active 16098844 Problem Cigarette nicotine dependence without complication F17.210 Active 42924736 Problem Other chronic pain G89.29 Active 12583501 Problem Chronic obstructive pulmonary disease, unspecified COPD type J44.9 Active 02271471 Problem Pain in right ankle and joints of right foot M25.571 Active 07352544593501 Problem Reactive depression F32.9 Active 52183837 Problem Mixed hyperlipidemia E78.2 Active 300436776 Problem Essential hypertension I10 Active 18313469 Problem Prediabetes R73.03 Active 464273203 Problem Acquired hypothyroidism E03.9 Active 265179019 ALLERGIES No Information ENCOUNTERS Encounter Location Date Diagnosis [facility] [id number] [address] Jul, [address] [place] [address] 53368- 5706 Jun, Pain in thoracic spine M54.6 [place] [address] [place] [address] 42006- 3060 Jun, Iron deficiency anemia due to chronic blood loss D50.0 and Hematochezia K92.1 [place] [id number] [place] [address] 88387- 0706 Jun, Gastroenteritis K52.9 and Abnormal RBC indices R71.8 [facility] [address] [address]- 4746 Jun, [facility] [address] [address] 254 Jun, Chest congestion R09.89 and Seizures R56.9 [facility] [address] 20869- 9974 May, Pain in thoracic spine M54.6 [facility] [address] [address]42- 3726 May, [facility] [address] 82298- 9098 May, [facility] [address] 62183- 1098 May, [facility] [address] 10935- 5248 May, Acute non-recurrent frontal sinusitis J01.10 and Dermatitis L30.9 [facility] [id number] [place] [address] 28095- 0333 May, [facility] [id number] [place] [address] 45996- 6889 May, Pain in thoracic spine M54.6 [facility] [id number] [place] [address] 57961- 2546 May, [facility] [address] 81688- 5118 May, Acute nasopharyngitis J00 [facility] [id number] [place] [address] 99140- 2546 May, [facility] [address] 26592- 0241 May, [facility] [address] [address] 5642 Apr, [facility] [id number] [place] [address] 45985- 0151 Apr, [facility] [address] [place] [address] 43965- 5298 Apr, [facility] [id number] [place] [address] 19238- 8741 Apr, [facility] [id number] [place] [address] 29567- 9380 Apr, Pain in right ankle and joints of right foot M25.571 [place] [id number] [place] [address] 48548- 1221 Apr, [place] [id number] [place] [address] 36412- 3242 Apr, Bronchitis J40 ; Pain in right ankle and joints of right foot M25.571 ; Other chronic pain G89.29 ; Prediabetes R73.03 ; Chronic obstructive pulmonary disease, unspecified COPD type J44.9 and Cigarette nicotine dependence without complication F17.210 [facility] [address] [place] [address] 66598 -8535 Apr, Seasonal allergic rhinitis, unspecified trigger J30.2 [place] [id number] [place] [address] 34425- 7482 Apr, Onychomycosis B35.1 ; Onychocryptosis L60.0 and DM 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 [place] [id number] [place] [address] 96086- 6595 Apr, Reactive depression F32.9 ; Thoracic myofascial strain, initial encounter S29.019A and Leg cramps R25.2 [facility] [address] [place] [address] 61209- 3881 March, [place] [id number] [place] [address] 18942- 1425 March, Type 2 diabetes mellitus with hyperglycemia E11.65 [place] [address] 61756- 2999 March, Reactive depression F32.9 [place] [address] 13758- 6046 March, Pain in thoracic spine M54.6 and Other chronic pain G89.29 [place] [address] 24040- 3959 Feb, [place] [address] 77018- 4117 Jan, Reactive depression F32.9 ; Essential hypertension I10 ; Gastroesophageal reflux disease, esophagitis presence not specified K21.9 ; Lumbago with sciatica, left side M54.42 and Lumbago with sciatica, right side M54.41 [place] [address] 99877- 6479 Jan, Reactive depression F32.9 and Pharyngoesophageal dysphagia R13.14 [place] [address] 93066- 8980 Jan, [address] [address]- 5310 Jan, Encounter for immunization Z23 [place] [address] 05546- 1783 Jan, Onychomycosis B35.1 and DM 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 [place] [address] 83044- 3906 Jan, [address] 93200- 5456 Jan, Prediabetes R73.03 [place] [address] 04937- 5718 Dec, [facility] [id number] [place] [address] 83893- 1315 Dec, Essential hypertension I10 ; Mixed hyperlipidemia E78.2 ; Acquired hypothyroidism E03.9 ; Reactive depression F32.9 and Prediabetes R73.03 [facility] [id number] [place] [address] 08893- 2461 Dec, [facility] [id number] [place] [address] 92876- 2306 Dec, [facility] [id number] [place] [address] 33629- 6714 Dec, DM 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 [facility] [id number] [place] [address] 32009 -4396 Dec, Bruise T14.8XXA ; Type 2 diabetes mellitus with hyperglycemia E11.65 and jail current use of insulin Z79.4 [place] [id number] [place] [address] 26662- 4631 Oct, [place] [id number] [place] [address] 88365- 8302 March, Onychomycosis B35.1 and DM 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 [facility] [id number] [place] [address] 08838- 7748 Jun, [facility] [id number] [place] [address] 07443- 9869 Jun, [facility] [id number] [place] [address] 27584- 7054 Jun, COPD with acute exacerbation 491.21 [facility] [id number] [place] [address] 97088- 0055 Apr, [facility] [id number] [place] [address] 15486- 5354 Feb, [facility] [place] [facility] [address] [id number] [place] [address]- 8825 13 Feb, 2015 [facility] [place] [facility] [address] [id number] [place] [address]- 8570 26 Jan, 2015 [facility] [place] [facility] [address] [id number] [place] [address]- 5565 Jan, [facility] [place] [facility] [address] [id number] [place] [address]- 0323 Jan, [facility] [place] [facility] [address] [id number] [place] [address]- 4002 Jan, [facility] [place] [facility] [address] [id number] [place] [address]- 1868 24 Jan, 2015 [facility] [place] [facility] [address] [id number] [place] [address]- 5399 Jan, [facility] [place] [facility] [address] [id number] [place] [address]- 7333 Jan, [facility] [place] [facility] [address] [id number] [place] [address]- 7574 Jan, [facility] [place] [facility] [address] [id number] [place] [address]- 5888 23 Jan, 2015 [facility] [place] [facility] [address] [id number] [place] [address]- 5601 19 Jan, 2015 [facility] [place] [facility] [address] [id number] [place] [address]- 8902 19 Jan, 2015 [facility] [place] [facility] [address] [id number] [place] [address]- 7637 18 Jan, 2015 [facility] [place] [facility] [address] [id number] [place] [address]- 6803 18 Jan, 2015 [facility] [place] [facility] [address] [id number] [place] [address]- 7857 16 Jan, 2015 [facility] [place] [facility] [address] [id number] [place] [address]- 5569 16 Jan, 2015 [facility] [place] [facility] [address] [id number] [place] [address]- 8963 16 Jan, 2015 [facility] [place] [facility] [address] [id number] [place] [address]- 5109 16 Jan, 2015 [facility] [place] [facility] [address] [id number] [place] [address]- 4544 15 Jan, 2015 [facility] [place] [facility] [address] [id number] [place] [address]- 5323 13 Jan, 2015 [facility] [place] [facility] [address] [id number] [place] [address]- 5847 13 Jan, 2015 [facility] [place] [facility] [address] [id number] [place] [address]- 2190 13 Jan, 2015 [facility] [place] [facility] [address] [id number] [place] [address]- 3065 13 Jan, 2015 [facility] [place] [facility] [address] [id number] [place] [address]- 5692 12 Jan, 2015 [facility] [place] [facility] [address] [id number] [place] [address]- 4918 04 Jan, 2015 [facility] [place] [facility] [address] [id number] [place] [address]- 3669 04 Jan, 2015 [facility] [place] [facility] [address] [id number] [place] [address]- 5745 24 Dec, 2014 [facility] [place] [facility] [address] [id number] [place] [address]- 0399 Dec, [facility] [place] [facility] [address] [id number] [place] [address]- 7706 Dec, [facility] [place] [facility] [address] [id number] [place] [address]- 8181 Dec, [facility] [place] [facility] [address] [id number] [place] [address]- 1800 23 Dec, 2014 [facility] [place] [facility] [address] [id number] [place] [address]- 4668 Dec, 2014 [facility] [place] [facility] [address] [id number] [place] [address]- 3697 Dec, 2014 [facility] [place] [facility] [address] [id number] [place] [address]- 2291 Dec, 2014 [facility] [place] [facility] [address] [id number] [place] [address]- 0674 Dec, 2014 [facility] [place] [facility] [address] [id number] [place] [address]- 0088 Dec, 2014 [facility] [place] [facility] [address] [id number] [place] [address]- 9291 Dec, 2014 [facility] [place] [facility] [address] [id number] [place] [address]- 9864 Dec, [facility] [place] [facility] [address] [id number] [address]- 3094 Nov, [facility] [place] [facility] [address] [id number] [place] [address]- 5287 Nov, [facility] [place] [facility] [address] [id number] [address]- 3131 Nov, [facility] [place] [facility] [address] [id number] [address]- 3461 Nov, [facility] [place] [facility] [address] [id number] [address]- 8863 Nov, [facility] [place] [facility] [address] [id number] [address]- 5420 Nov, [facility] [place] [facility] [address] [id number], [place] [address]- 0297 Nov, [facility] [place] [facility] [address] [id number] [address]- 1910 15 Nov, 2014 [facility] [place] [facility] [address] [id number] [address]- 9294 Nov, [facility] [address] [id number] [place] [address]- 2456 Nov, [facility] [place] [facility] [address] [id number] [place] [address]- 3321 Nov, [facility] [place] [facility] [address] [facility] [id number] [place] [address]- 1102 Nov, [facility] [place] [facility] [address] [id number] [place] [address]- 5068 Oct, [facility] [place] [facility] [address] [id number] [place] [address]- 9528 Oct, [facility] [place] [facility] [address] [id number] [place] [address]- 9572 Oct, [facility] [address] [id number] [place] [address]- 1670 Oct, [facility] [place] [facility] [address] [id number] [place] [address]- 5720 Oct, [facility] [place] [facility] [address] [id number] [place] [address]- 9309 Oct, [facility] [place] [facility] [address] [facility] [id number] [place] [address]- 7389 Oct, [facility] [place] [facility] [address] [id number] [place] [address]- 0778 Oct, [facility] [place] [facility] [address] [id number] [place] [address]- 2170 Oct, [facility] [place] [facility] [address] [id number] [place] [address]- 5246 Oct, [facility] [place] [facility] [address] [id number] [place] [address]- 4304 16 Oct, 2014 [facility] [place] [facility] [address] [id number] [place] [address]- 1827 16 Oct, 2014 [facility] [place] [facility] [address] [id number] [place] [address]- 8268 15 Oct, 2014 [facility] [place] [facility] [address] [id number] [place] 3035 Oct, [facility] [place] [facility] [address] [id number] [place] [address]- 8134 Oct, [facility] [place] [facility] [address] [id number] [place] 6245 Sep, [facility] [place] [facility] [address] [id number] [place] [address]- 9089 Sep, [facility] [place] [facility] [address] [id number] [place] [address]- 7296 Sep, [facility] [place] [facility] [address] [id number] [place] [address]- 7174 Sep, [facility] [place] [facility] [address] [id number] [place] [address]- 7186 Aug, [facility] [place] [facility] [address] [id number] [place] [address]- 1307 Aug, [facility] [place] [facility] [address] [id number] [place] [address]- 0029 Aug, [facility] [place] [facility] [address] [id number] [place] [address]- 7885 Aug, [facility] [place] [facility] [address] [id number] [place] [address]- 4007 Aug, [facility] [place] [facility] [address] [id number] [place] [address]- 5059 Aug, [facility] [place] [facility] [address] [id number] [place] [address]- 9299 Jul, [facility] [place] [facility] [address] [id number] [place] [address]- 1725 29 Jul, 2014 [facility] [place] [facility] [address] [id number] [place] [address]- 0958 Jul, [facility] [place] [facility] [address] [id number] [place] [address]- 7917 Jul, [facility] [place] [facility] [address] [id number] [place] [address]- 2633 Jul, [facility] [place] [facility] [address] [id number] [place] [address]- 8561 Jul, [facility] [place] [facility] [address] [id number] [place] [address]- 7642 Jun, [facility] [place] [facility] [address] [id number] [place] [address]- 6286 Jun, [facility] [place] [facility] [address] [id number] [place] [address]- 2869 Jun, [facility] [place] [facility] [address] [id number] [place] [address]- 0122 Jun, [facility] [place] [facility] [address] [id number] [place] [address]- 3984 Jun, [facility] [place] [facility] [address] [id number] [place] [address]- 2985 Jun, [facility] [place] [facility] [address] [id number] [place] [address]- 3230 Jun, [facility] [place] [facility] [address] [id number] [place] [address]- 9483 May, [facility] [place] [facility] [address] [id number] [place] [address]- 7289 May, [facility] [place] [facility] [address] [id number] [place] [address]- 9562 May, [facility] [place] [facility] [address] [id number] [place] [address]- 1936 May, [facility] [place] [facility] [address] [id number] [place] [address]- 0519 May, [facility] [place] [facility] [address] [id number] [place] [address]- 3470 May, 2013 [facility] [place] [facility] [address] [id number] [place] [address]- 4412 May, 2013 [facility] [place] [facility] [address] [id number] [place] [address]- 4588 May, 2013 [facility] [place] [facility] [address] [id number] [place] [address]- 5058 May, 2013 [facility] [place] [facility] [address] [id number] [place] [address]- 5975 May, 2013 [facility] [place] [facility] [address] [id number] [place] [address]- 7858 May, [facility] [place] [facility] [address] [id number] [place] [address]- 9606 May, [facility] [place] [facility] [address] [id number] [place] [address]- 5013 Apr, [facility] [place] [facility] [address] [id number] [place] [address]- 3135 Apr, [facility] [place] [facility] [address] [id number] [place] [address]- 6831 Apr, [facility] [place] [facility] [address] [id number] [place] [address]- 8070 Apr, [facility] [place] [facility] [address] [id number] [place] [address]- 6577 Apr, [facility] [place] [facility] [address] [id number] [place] [address]- 3181 Apr, [facility] [place] [facility] [address] [id number] [place] [address]- 4225 Apr, [facility] [place] [facility] [address] [id number] [place] [address]- 1549 Apr, [facility] [place] [facility] [address] [id number] [place] [address]- 4403 Apr, [facility] [place] [facility] [address] [id number] [place] [address]- 3105 Apr, [facility] [place] [facility] [address] [id number] [place] [address]- 3511 March, [facility] [place] [facility] [address] [id number] [place] [address]- 1551 March, [facility] [place] [facility] [address] [id number] [place] [address]- 1160 March, [facility] [place] [facility] [address] [id number] [place] [address]- 5847 March, [facility] [place] [facility] [address] [id number] [place] [address]- 6066 March, [facility] [place] [facility] [address] [id number] [place] [address]- 9852 March, [facility] [place] [facility] [address] [id number] [place] [address]- 4646 Feb, [facility] [place] [facility] [address] [id number] [place] [address]- 4152 Feb, [facility] [place] [facility] [address] [id number] [place] [address] Feb, [facility] [place] [facility] [address] [id number] [place] [address] Feb, [facility] [place] [facility] [address] [id number] [place] [address] Feb, [facility] [place] [facility] [address] [id number] [place] [address] Feb, [facility] [place] [facility] [address] [id number] [place] [address] Feb, [facility] [place] [facility] [address] [id number] [place] [address] Feb, [facility] [place] [facility] [address] [id number] [place] [address] Feb, [facility] [place] [facility] [address] [id number] [place] [address] Feb, [facility] [place] [facility] [address] [id number] [place] [address] Jan, [facility] [place] [facility] [address] [id number] [place] [address] Jan, [facility] [place] [facility] [address] [id number] [place] [address] Jan, [facility] [place] [facility] [address] [id number] [place] [address] Jan, [facility] [place] [facility] [address] [id number] [place] [address] Jan, [facility] [place] [facility] [address] [facility] [id number] [place] [address] Jan, [facility] [place] [facility] [address] [id number] [place] [address]- 49[address] Jan, [facility] [place] [facility] [address] [id number] [place] [address] Jan, [facility] [place] [facility] [address] [facility] [id number] [place] [address] Dec, [facility] [place] [facility] [address] [id number] [place] [address] Dec, [facility] [place] [facility] [address] [id number] [place] [address] Dec, [facility] [place] [facility] [address] [id number] [place] [address] Dec, [facility] [place] [facility] [address] [id number] [place] [address]100 Dec, [facility] [place] [facility] [address] [facility] [id number] [place] [address] 49[address] Dec, [facility] [place] [facility] [address] [id number] [place] [address] Dec, [facility] [place] [facility] [address] [id number] [place] [address]206 Dec, [facility] [place] [facility] [address] [id number] [place] [address] Nov, [facility] [place] [facility] [address] [id number] [place] [address] Nov, [facility] [place] [facility] [address] [id number] [place] [address]150 Nov, [facility] [place] [facility] [address] [id number] [place] [address] Nov, [facility] [place] [facility] [address] [id number] [place] [address]408 Nov, [facility] [place] [facility] [address] [id number] [place] [address]- [address] Nov, [facility] [place] [facility] [address] [id number] [place] [address] Nov, [facility] [place] [facility] [address] [id number] [place] [address] Nov, [facility] [place] [facility] [address] [id number] [place] [address] 1463 Nov, [facility] [place] [facility] [address] [id number] [place] [address]- 9028 Nov, [facility] [place] [facility] [address] [id number] [place] [address]708 Nov, [facility] [place] [facility] [address] [id number] [place] [address] Oct, [facility] [place] [facility] [address] [id number] [place] [address] Oct, [facility] [place] [facility] [address] [id number] [place] [address] Oct, [facility] [place] [facility] [address] [id number] [place] [address] Oct, [facility] [place] [facility] [address] [id number] [place] [address] Sep, [facility] [place] [facility] [address] [id number] [place] [address]- [address]156 Sep, [facility] [place] [facility] [address] [id number] [place] [address] Sep, [facility] [place] [facility] [address] [id number] [place] [address] Sep, [facility] [place] [facility] [address] [id number] [place] [address]- [address] Aug, [facility] [place] [facility] [address] [id number] [place] [address]- 2897 Aug, [facility] [place] [facility] [address] [id number] [place] [address] Aug, [facility] [place] [facility] [address] [id number] [place] [address]- [address]56 Aug, [facility] [place] [facility] [address] [id number] [place] [address]- 4915 Aug, [facility] [place] [facility] [address] [id number] [address] Aug, [facility] [place] [facility] [address] [id number], [place] [address] Aug, [facility] [place] [facility] [address] [id number] [place] [address] Aug, [facility] [place] [facility] [address] [id number], [place] [address] Jul, [facility] [place] [facility] [address] [id number] [place] [address] Jul, [facility] [place] [facility] [address] [id number] [place] [address] 2547 26 Sep, 2012 [facility] [address] [id number] [place] [address] 2546 24 Sep, 2012 [facility] [address] [id number] [place] [address] 2546 24 Jul, 2012 [facility] [address] [id number] [place] [address] 2546 23 Sep, 2012 [facility] [address] [id number] [place] [address] 2540 19 Sep, 2012 [facility] [address] [id number] [place] [address] 4680 18 Jul, 2012 [facility] [address] [id number] [place] [address]- 8089 17 Jul, 2012 [facility] [address] [id number] [place] [address]- 2540 16 Jul, 2012 [facility] [address] [id number] [place] [address]- 1152 13 Jul, 2012 [facility] [address] [id number] [place] [address]- 2544 13 Jul, 2012 [facility] [address] [id number] [place] [address]- 4824 12 Jul, 2012 [facility] [address] [id number] [place] [address] 2541 11 Jul, 2012 [facility] [address] [id number] [place] [address]- 2541 04 Jul, 2012 [facility] [place] [facility] [address] [id number] [place] [address]- 0693 30 Jun, 2013 [facility] [place] [facility] [address] [id number] [place] [address]- 2541 Jun, [facility] [address] [id number] [place] [address]- 4186 Jun, [facility] [address] [id number] [place] [address]- 9108 May, [facility] [place] [facility] [address] [id number] [place] [address]- 1620 May, [facility] [place] [facility] [address] [id number] [place] [address]- 5688 May, [facility] [place] [facility] [address] [id number] [place] [address]- 2884 May, [facility] [place] [facility] [address] [id number] [place] [address]- 5497 Apr, [facility] [place] [facility] [address] [id number] [place] [address]- 9556 Apr, [facility] [place] [facility] [address] [id number] [place] [address]- 8942 Apr, [facility] [place] [facility] [address] [id number] [place] [address]- 5222 Apr, [facility] [place] [facility] [address] [id number] [place] [address]- 9441 March, [facility] [place] [facility] [address] [id number] [place] [address]- 7470 March, [facility] [place] [facility] [address] [id number] [place] [address]- 6918 March, [facility] [place] [facility] [address] [id number] [place] [address]- 7475 Feb, [facility] [place] [facility] [address] [id number] [place] [address]- 3773 Feb, [facility] [place] [facility] [address] [id number] [place] [address]- 9786 Jan, [facility] [place] [facility] [address] [id number] [place] [address]- 4217 Jan, [facility] [place] [facility] [address] [id number] [address] 7608 Jan, [facility] [address] [id number] [place] [address]- 6326 Jan, [facility] [address] [id number] [place] [address]- 6206 Jan, [facility] [address] [id number] [place] [address]- 2756 Dec, [facility] [address] [id number] [place] [address]- 8324 Dec, [facility] [address] [id number] [place] [address]- 2266 Dec, [facility] [address] [id number] [place] [address]- 6486 Dec, [facility] [address] [id number] [place] [address]- 7431 Dec, [facility] [address] [id number] [place] [address]- 3172 Dec, [facility] [address] [id number] [place] [address]- 5168 Dec, [facility] [address] [facility] [id number] [place] [address]- 7034 Dec, [facility] [address] [id number] [place] [address]- 6502 Nov, [facility] [address] [id number] [place] [address] 2544 Nov, [facility] [place] [facility] [address] [id number] [place] [address]- 8668 Nov, [facility] [address] [id number] [place] [address]- 8753 Nov, [facility] [address] [facility] [id number] [place] [address]- 4740 Nov, [facility] [place] [facility] [address] [id number] [place] [address]- 0249 Nov, [facility] [place] [facility] [address] [id number] [place] [address]- 2861 Nov, [facility] [place] [facility] [address] [id number] [place] [address]- 9230 Oct, [facility] [place] [facility] [address] [id number] [place] [address]- 5381 Oct, [facility] [place] [facility] [address] [id number] [place] [address]- 8650 Oct, [facility] [place] [facility] [address] [id number] [place] [address]- 6376 Oct, [facility] [place] [facility] [address] [id number] [place] [address]- 9757 Oct, [facility] [place] [facility] [address] [id number] [place] [address]- 1139 Oct, [facility] [place] [facility] [address] [id number] [place] [address]- 2458 Oct, [facility] [place] [facility] [address] [id number] [place] [address]- 6935 Oct, [facility] [place] [facility] [address] [id number] [address]- 9073 Sep, [facility] [place] [facility] [address] [id number] [address]- 4657 Sep, [facility] [place] [facility] [address] [id number] [place] [address]- 8936 Sep, [facility] [place] [facility] [address] [id number] [place] [address]- 3281 Sep, [facility] [place] [facility] [address] [id number] [place] [address]- 3976 Sep, [facility] [place] [facility] [address] [id number], [place] [address]- 8668 Sep, [facility] [place] [facility] [address] [id number] [place] [address]- 4352 Sep, [facility] [place] [facility] [address] [id number] [place] [address]- 7025 Sep, [facility] [place] [facility] [address] [facility] [id number] [place] [address]- 2118 Sep, [facility] [place] [facility] [address] [id number] [place] [address]- 3359 Sep, [facility] [place] [facility] [address] [facility] [id number] [place] [address], [place] [address]- 9105 Sep, [facility] [place] [facility] [address] [facility] [id number] [place] [address]- 4882 Sep, [facility] [place] [facility] [id number] [address]- 3344 Sep, [facility] [place] [facility] [address] [facility] [id number] [place] [address]- 5338 Sep, [facility] [place] [facility] [address] [id number] [place] [address]- 4247 Sep, [facility] [place] [facility] [address] [id number] [place] [address]- 0799 Sep, [facility] [place] [facility] [address] [facility] [id number] [address]- 4038 Sep, [facility] [place] [facility] [address] [facility] [id number] [address]- 4684 Sep, [facility] [place] [facility] [address] [facility] [id number] [place] [address]- 8479 Sep, [facility] [place] [facility] [address] [facility] [id number] [place] [address]- 0063 Sep, [facility] [place] [facility] [address] [id number] [place] [address]- 8784 Aug, [facility] [place] [facility] [address] [id number] [place] [address]- 2598 31 Aug, 2011 [facility] [place] [facility] [address] [id number] [place] [address]- 6196 29 Aug, 2011 [facility] [place] [facility] [address] [id number] [place] [address]- 8365 27 Aug, 2011 [facility] [place] [facility] [address] [id number] [place] [address]- 5724 27 Aug, 2011 [facility] [place] [facility] [address] [id number] [place] [address]- 6448 18 Aug, 2011 [facility] [place] [facility] [address] [id number] [place] [address]- 8168 18 Aug, 2012 [facility] [place] [facility] [address] [id number] [place] [address]- 2119 17 Aug, 2012 [facility] [place] [facility] [address] [id number] [place] [address]- 6005 16 Aug, 2012 [facility] [place] [facility] [address] [id number] [place] [address]- 6440 16 Aug, 2012 [facility] [place] [facility] [address] [id number] [place] [address]- 2290 15 Aug, 2012 [facility] [place] [facility] [address] [id number] [place] [address]- 8791 09 Aug, 2012 [facility] [place] [facility] [address] [id number] [place] [address]- 3349 05 Aug, 2012 [facility] [place] [facility] [address] [id number] [place] [address]- 8586 05 Aug, 2012 [facility] [place] [facility] [address] [id number] [place] [address]- 7158 04 Aug, 2012 [facility] [place] [facility] [address] [id number] [place] [address]- 0877 14 Jul, 2012 [facility] [place] [facility] [address] [id number] [place] [address]- 1527 Jul, [facility] [place] [facility] [address] [id number] [place] [address]- 1681 Jun, [facility] [place] [facility] [address] [id number] [place] [address]- 7395 Jun, [facility] [place] [facility] [address] [id number] [place] [address]- 3003 May, [facility] [place] [facility] [address] [id number] [place] [address]- 6510 May, [facility] [place] [facility] [address] [id number] [place] [address]- 8104 May, [facility] [place] [facility] [address] [id number] [place] [address]- 3083 May, [facility] [place] [facility] [address] [id number] [place] [address]- 8799 May, [facility] [place] [facility] [address] [id number] [place] [address]- 9212 May, [facility] [place] [facility] [address] [id number] [place] [address]- 3667 Apr, [facility] [place] [facility] [address] [id number] [place] [address]- 5671 Apr, [facility] [place] [facility] [address] [id number] [place] [address]- 8556 March, [facility] [place] [facility] [address] [id number] [place] [address]- 2102 March, [facility] [place] [facility] [address] [id number] [place] [address]- 1333 March, [facility] [place] [facility] [address] [id number] [place] [address]- 8906 March, [facility] [place] [facility] [address] [id number] [place] [address]- 7485 March, [facility] [place] [facility] [address] [id number] [place] [address]- 5976 March, [facility] [address] [id number] [place] [address]- 2266 Feb, [facility] [place] [facility] [address] [id number] [place] [address]- 3386 Feb, [facility] [address] [id number] [place] [address]- 5476 Feb, [facility] [place] [facility] [address] [id number] [place] [address]- 0756 Feb, [facility] [place] [facility] [address] [id number] [place] [address]- 5063 Feb, [facility] [place] [facility] [address] [id number] [place] [address]- 3223 Feb, [facility] [address] [id number] [place] [address]- 8600 Feb, [facility] [place] [facility] [address] [id number] [place] [address]- 2306 Feb, [facility] [place] [facility] [address] [id number] [place] [address]- 9053 Feb, [facility] [address] [id number] [place] [address]- 3624 Jan, [facility] [place] [facility] [address] [id number] [place] [address]- 3996 Jan, [facility] [place] [facility] [address] [id number] [place] [address]- 6140 Jan, [facility] [place] [facility] [address] [id number] [place] [address]- 2726 Jan, [facility] [place] [facility] [address] [id number] [place] [address]- 5496 Jan, [facility] [place] [facility] [address] [id number] [place] [address]- 2662 Jan, [facility] [place] [facility] [address] [id number] [place] [address]- 0876 14 Jan, 2012 [facility] [place] [facility] [address] [id number] [place] [address]- 1744 Jan, [facility] [place] [facility] [address] [id number] [place] 1166 Jan, [facility] [place] [facility] [address] [id number] [place] [address]- 3077 08 Jan, 2012 [facility] [place] [facility] [address] [id number] [place] [address]- 1072 07 Jan, 2012 [facility] [place] [facility] [address] [id number] [place] [address]- 5359 06 Jan, 2012 [facility] [place] [facility] [address] [id number] [place] [address]- 4859 Jan, [facility] [place] [facility] [address] [id number] [place] [address]- 6737 Jan, [facility] [place] [facility] [address] [id number] [place] [address]- 0078 Dec, [facility] [place] [facility] [address] [id number] [place] [address]- 3129 Dec, [facility] [place] [facility] [address] [id number] [place] [address]- 9589 Dec, [facility] [place] [facility] [address] [id number] [place] [address]- 7578 23 Dec, 2011 [facility] [place] [facility] [address] [id number] [place] [address]- 2979 16 Dec, 2011 [facility] [place] [facility] [address] [id number] [place] [address]- 2216 08 Dec, 2011 [facility] [place] [facility] [address] [id number] [place] [address]- 0673 08 Dec, 2011 [facility] [place] [facility] [address] [id number] [place] [address]- 4546 07 Dec, 2011 [facility] [address] [id number] [place] [address]- 6286 Dec, [facility] [address] [id number] [place] [address]- 2986 Nov, [facility] [address] [id number] [place] [address]- 4979 Nov, [facility] [address] [id number] [place] [address]- 6108 Nov, [facility] [address] [id number] [place] [address]- 7674 Nov, [facility] [address] [id number] [place] [address]- 3601 Oct, [facility] [address] [id number] [place] [address]- 8672 Oct, [facility] [address] [id number] [place] [address]- 5645 Oct, [facility] [address] [id number] [place] [address]- 0925 Oct, [facility] [address] [id number] [place] [address]- 6327 Oct, [facility] [address] [id number] [place] [address]- 3696 Oct, [facility] [address] [id number] [place] [address]- 3569 Oct, [facility] [place] [facility] [address] [id number] [place] [address]- 6198 Sep, [facility] [place] [facility] [address] [id number] [place] [address]- 2704 Sep, [facility] [address] [id number] [place] [address]- 4065 Sep, [facility] [place] [facility] [address] [id number] [place] [address]- 5883 Sep, [facility] [place] [facility] [address] [id number] [place] [address]86 Sep, [facility] [place] [facility] [address] [id number] [place] [address]- 6070 Sep, [facility] [place] [facility] [address] [id number] [place] [address]- 9329 Sep, [facility] [place] [facility] [address] [id number] [place] [address]- 4145 Sep, [facility] [place] [facility] [address] [id number] [place] [address]- 9516 Sep, [facility] [place] [facility] [address] [id number] [place] [address]- 2875 Aug, [facility] [place] [facility] [address] [id number] [place] [address]- 9535 Aug, [facility] [place] [facility] [address] [id number] [place] [address]- 7338 Aug, [facility] [place] [facility] [address] [id number] [place] [address]- 9510 May, [facility] [place] [facility] [address] [id number] [place] [address]- 2258 Nov, [facility] [place] [facility] [address] [id number] [place] [address]- 5018 Oct, [facility] [place] [facility] [address] [id number] [place] [address]- 3059 Oct, [facility] [place] [facility] [address] [id number] [place] [address]- 7402 Oct, [facility] [place] [facility] [address] [id number] [place] [address]- 9456 Oct, [facility] [place] [facility] [address] [id number] [address]- 9756 Oct, [facility] [address] [facility] [id number], [place] [address]- 1726 03 Sep, 2010 [facility] [address] [facility] [facility] [id number], [place] [address]- 7956 Sep, [facility] [address] [facility] [id number] [address]- 8356 14 Jul, 2010 [facility] [address] [facility] [id number], [place] [address]- 0501 31 Oct, 2009 [facility] [address] [facility] [id number], [place] [address]- 7435 Oct, [facility] [address] [facility] [id number], [place] [address]- 0943 Oct, [facility] [address] [facility] [id number], [place] [address]- 9120 Oct, [facility] [address] [facility] [id number], [place] [address] 30 Sep, 2009 [facility] [address] [id number] [address] Sep, [facility] [address] [id number] [address] Sep, [facility] [address] [id number] [address] Sep, [facility] [address] [id number] [address] Sep, [facility] [address] [id number], [place] [address] 11 Jul, 2009 [facility] [address] [id number] [address] Apr, [facility] [address] [id number] [address] 12 Dec, 2008 IMMUNIZATIONS No Known Immunizations SOCIAL HISTORY Never Assessed REASON FOR VISIT PLAN OF CARE VITAL SIGNS MEDICATIONS Unknown Medications RESULTS No Results PROCEDURES No Known procedures INSTRUCTIONS MEDICATIONS ADMINISTERED No Known Medications MEDICAL (GENERAL) HISTORY Type Description Date Medical History hypertension Medical History hyperlipidemia Medical History diabetes type II Medical History COPD Medical History asthma Surgical History hysterectomy Surgical History arthritis surgery Hospitalization History surgeries
--- OUTSIDE RECORDS SUMMARY | 2018-11-26 16:04 | XMS REPORT ---
Author Author KRISTI KELLY [facility] Address [address] [place] [address] Care Team Providers Care Court Operations Clerk Name Role Phone KRISTI KELLY Unavailable PROBLEMS Type Condition ICD9-CM Code OCU14-BE Code Onset Dates Condition Status SNOMED Code Problem Gastroesophageal reflux disease, esophagitis presence not specified K21.9 Active 161489692 Problem Lumbago with sciatica, right side M54.41 Active [id number] Problem Lumbago with sciatica, left side M54.42 Active 635672102 Problem Iron deficiency anemia due to chronic blood loss D50.0 Active 615977166 Problem Seizures R56.9 Active 97190551 Problem Cigarette nicotine dependence without complication F17.210 Active 18835671 Problem Other chronic pain G89.29 Active 79543891 Problem Chronic obstructive pulmonary disease, unspecified COPD type J44.9 Active 19263560 Problem Pain in right ankle and joints of right foot M25.571 Active [id number] Problem Reactive depression F32.9 Active 86578348 Problem Mixed hyperlipidemia E78.2 Active 691042292 Problem Essential hypertension I10 Active 39699645 Problem Prediabetes R73.03 Active 201955187 Problem Acquired hypothyroidism E03.9 Active 477064075 ALLERGIES Substance Reaction Event Type Date Status Penicillin G Potassium anaphylaxis Drug Allergy Apr, Active Codeine Sulfate anaphylaxis Drug Allergy Apr, Active Aspirin hives Drug Allergy Apr, Active Peanut hives Non Drug Allergy Apr, Active ENCOUNTERS Encounter Location Date Diagnosis [facility] [id number] [address] Jul, [facility] [address], [place] [address] Jun, [facility] [address] [id number], [place] [address] Jun, Iron deficiency anemia due to chronic blood loss D50.0 and Hematochezia K92.1 [facility] [address] [address] Jun, Gastroenteritis K52.9 and Abnormal RBC indices R71.8 [facility] [address] [address]- [address] Jun, [facility] [address] [address]- [address] Jun, Chest congestion R09.89 and Seizures R56.9 [place] [address] [address]- [address] May, Pain in thoracic spine M54.6 [place] [address] [address]- [address] May, [facility] [address] [address]- [address] May, [facility] [address] [address]- [address] May, [facility] [address] [address]- [address] May, Acute non-recurrent frontal sinusitis J01.10 and Dermatitis L30.9 [facility] [address] [address]- [address] May, [facility] [address] [address]- [address] May, Pain in thoracic spine M54.6 [facility] [address] [address]- [address]30 May, [facility] [address] [address]- 12[address] May, Acute nasopharyngitis J00 [facility] [address] [address]- [address] May, [facility] [address], [place] [address] May, [facility] [id number] [place] [address]21- 0915 Apr, [facility] [id number] [place] [address] 63748- 0917 Apr, [place] [id number] [place] [address]80- 4377 Apr, [facility] [address] [place] [address] 50305- 3337 Apr, [place] [id number] [place] [address] 21194- 1328 Apr, Pain in right ankle and joints of right foot M25.571 [place] [id number] [place] [address] 26597- 5037 Apr, [facility] [id number] [place] [address] 68642- 7058 Apr, Bronchitis J40 ; Pain in right ankle and joints of right foot M25.571 ; Other chronic pain G89.29 ; Prediabetes R73.03 ; Chronic obstructive pulmonary disease, unspecified COPD type J44.9 and Cigarette nicotine dependence without complication F17.210 [facility] [address] [place] [address] 33294 -1532 13 Apr, 2018 Seasonal allergic rhinitis, unspecified trigger J30.2 [facility] [address] [place] [address] 31420- 8531 08 Apr, 2018 Onychomycosis B35.1 ; Onychocryptosis L60.0 and DM 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 [place] [address], [place] [address] 01 Apr, 2018 Reactive depression F32.9 ; Thoracic myofascial strain, initial encounter S29.019A and Leg cramps R25.2 [place] [id number] [place] [address] 62435- 5039 March, [place] [address] [address]35- 4[address] March, Type 2 diabetes mellitus with hyperglycemia E11.65 [place] [address] 0[address]31- 2855 March, Reactive depression F32.9 [place] [address] 00146- 4201 March, Pain in thoracic spine M54.6 and Other chronic pain G89.29 [place] [address] 22723- 2439 Feb, [place] [address] 22267- 1245 Jan, Reactive depression F32.9 ; Essential hypertension I10 ; Gastroesophageal reflux disease, esophagitis presence not specified K21.9 ; Lumbago with sciatica, left side M54.42 and Lumbago with sciatica, right side M54.41 [place] [address] 8[address]00- 0349 Jan, Reactive depression F32.9 and Pharyngoesophageal dysphagia R13.14 [place] [id number] [place] [address] 18801- 3701 Jan, [place] [address] 59492- 8206 Jan, Encounter for immunization Z23 [place] [address] 65915- 6308 Jan, Onychomycosis B35.1 and DM 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 [place] [id number] [place] [address] 71580- 5138 Jan, [place] [address] 22350- 6006 Jan, Prediabetes R73.03 [facility] [id number] [place] [address]- [address] Dec, [facility] [address] 9[address]99- 2415 Dec, Essential hypertension I10 ; Mixed hyperlipidemia E78.2 ; Acquired hypothyroidism E03.9 ; Reactive depression F32.9 and Prediabetes R73.03 [facility] [id number] [place] [address] 48548- 6576 Dec, [place] [address] 9[address]00- 3699 Dec, [place] [address] 15739- 1618 Dec, DM 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 [facility] [id number] [place] [address] 98190 -9311 Dec, Bruise T14.8XXA ; Type 2 diabetes mellitus with hyperglycemia E11.65 and group home current use of insulin Z79.4 [place] [id number] [place] [address] 07903- 4441 Oct, [place] [id number] [place] [address] 27980- 3325 March, Onychomycosis B35.1 and DM 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 [place] [id number] [place] [address] 26125- 4941 Jun, [place] [address] 53108- 5797 Jun, [place] [id number] [place] [address] 52735- 3263 Jun, COPD with acute exacerbation 491.21 [place] [address] 00568- 4930 15 Apr, 2015 [facility] [place] [facility] [address] [id number] [place] [address]- 9113 14 Feb, 2015 [facility] [place] [facility] [address] [id number] [place] [address]- 5368 13 Feb, 2015 [facility] [place] [facility] [address] [id number] [place] [address]- 0460 26 Jan, 2015 [facility] [place] [facility] [address] [id number] [place] [address]- 7503 Jan, [facility] [place] [facility] [address] [id number] [place] [address]- 9214 Jan, [facility] [place] [facility] [address] [id number] [place] [address]- 2447 Jan, [facility] [place] [facility] [address] [id number] [place] [address]- 3618 Jan, [facility] [place] [facility] [address] [id number] [place] [address]- 7143 Jan, [facility] [place] [facility] [address] [id number] [place] [address]- 1292 Jan, [facility] [place] [facility] [address] [id number] [place] [address]- 0015 Jan, [facility] [place] [facility] [address] [id number] [place] [address]- 0270 Jan, [facility] [place] [facility] [address] [id number] [address]- 8465 Jan, [facility] [place] [facility] [address] [id number] [place] [address]- 5973 19 Jan, 2015 [facility] [place] [facility] [address] [id number] [place] [address]- 2366 18 Jan, 2015 [facility] [place] [facility] [address] [id number] [place] [address]- 5504 18 Jan, 2015 [facility] [place] [facility] [address] [id number] [place] [address]- 0429 16 Jan, 2014 [facility] [place] [facility] [address] [id number] [place] [address]- 6507 16 Jan, 2014 [facility] [place] [facility] [address] [id number] [place] [address]- 7976 16 Jan, 2014 [facility] [place] [facility] [address] [id number] [place] [address]- 5062 16 Jan, 2014 [facility] [place] [facility] [address] [id number] [place] [address]- 6164 15 Jan, 2014 [facility] [place] [facility] [address] [id number] [place] [address]- 1311 13 Jan, 2015 [facility] [place] [facility] [address] [id number] [place] [address]- 9046 13 Jan, 2014 [facility] [place] [facility] [address] [id number] [place] [address]- 6695 13 Jan, 2014 [facility] [place] [facility] [address] [id number] [place] [address]- 2585 13 Jan, 2015 [facility] [place] [facility] [address] [id number] [place] [address]- 8695 12 Jan, 2014 [facility] [place] [facility] [address] [facility] [id number] [place] [address]- 6000 04 Jan, 2015 [facility] [place] [facility] [address] [id number] [place] [address]- 0952 04 Jan, 2015 [facility] [place] [facility] [address] [id number] [place] [address]- 4456 24 Dec, 2014 [facility] [place] [facility] [address] [id number] [place] [address]- 2593 24 Dec, 2014 [facility] [place] [facility] [address] [id number] [place] [address]- 8111 24 Dec, 2014 [facility] [place] [facility] [address] [id number] [place] [address]- 9428 Dec, [facility] [place] [facility] [address] [id number] [place] [address]- 5910 Dec, [facility] [place] [facility] [address] [id number] [place] [address]- 5196 Dec, [facility] [place] [facility] [address] [id number] [place] [address]- 7909 Dec, [facility] [place] [facility] [address] [id number] [place] [address]- 4584 Dec, 2014 [facility] [place] [facility] [address] [id number] [place] [address]- 0861 Dec, [facility] [place] [facility] [address] [id number] [place] [address]- 8459 Dec, [facility] [place] [facility] [address] [id number] [place] [address]- 2497 16 Dec, 2014 [facility] [place] [facility] [address] [id number] [place] [address]- 8383 Dec, [facility] [place] [facility] [address] [id number] [place] [address]- 1584 Nov, [facility] [place] [facility] [address] [id number] [place] [address]- 2235 Nov, [facility] [place] [facility] [address] [id number] [address]- 6677 Nov, [facility] [place] [facility] [address] [id number], [place] [address]- 5962 Nov, [facility] [place] [facility] [address] [id number] [place] [address]- 0999 Nov, [facility] [place] [facility] [address] [id number] [place] [address]- 9504 Nov, [facility] [place] [facility] [address] [id number] [place] [address]- 4689 Nov, [facility] [place] [facility] [address] [id number] [place] [address]- 9816 15 Nov, 2014 [facility] [address] [id number] [place] [address]- 9703 Nov, [facility] [address] [id number] [place] [address]- 4016 Nov, [facility] [address] [id number] [place] [address]- 2460 Nov, [facility] [address] [id number] [place] [address]- 9884 Nov, [facility] [address] [id number] [place] [address]- 3527 Oct, [facility] [address] [id number] [place] [address]- 0756 Oct, [facility] [address] [id number] [place] [address]- 8399 30 Oct, 2014 [facility] [address] [id number] [place] [address]- 0896 30 Oct, 2014 [facility] [address] [id number] [place] [address]- 7819 29 Oct, 2014 [facility] [address] [id number] [place] [address]- 0503 29 Oct, 2014 [facility] [address] [id number] [place] [address]- 7020 23 Oct, 2014 [facility] [address] [id number] [place] [address]- 5271 23 Oct, 2014 [facility] [place] [facility] [address] [id number] [place] [address]- 8971 17 Oct, 2014 [facility] [place] [facility] [address] [id number] [place] [address]- 9096 17 Oct, 2014 [facility] [place] [facility] [address] [id number] [place] [address]- 5345 Oct, [facility] [place] [facility] [address] [id number] [place] [address]- 2131 16 Oct, 2014 [facility] [place] [facility] [address] [id number] [place] [address]- 5959 Oct, [facility] [place] [facility] [address] [id number] [place] [address]- 1382 Oct, [facility] [place] [facility] [address] [id number] [place] [address]- 0523 Oct, [facility] [place] [facility] [address] [id number] [place] [address]- 1807 Sep, [facility] [place] [facility] [address] [id number] [place] [address]- 4671 Sep, [facility] [place] [facility] [address] [id number] [place] [address]- 9885 Sep, [facility] [place] [facility] [address] [id number] [place] [address]- 1316 Sep, [facility] [place] [facility] [address] [id number] [place] [address]- 9616 Aug, [facility] [place] [facility] [address] [id number] [place] [address]- 0204 Aug, [facility] [place] [facility] [address] [id number] [place] [address]- 0982 Aug, [facility] [place] [facility] [address] [id number], [place] [address]- 0970 Aug, [facility] [place] [facility] [address] [id number] [place] [address]- 1289 Aug, [facility] [place] [facility] [address] [id number] [place] [address] Aug, [facility] [place] [facility] [address] [id number] [place] [address]60 Jul, [facility] [place] [facility] [address] [id number] [place] [address]- 1279 29 Jul, 2014 [facility] [place] [facility] [address] [id number] [place] [address]- 6750 15 Jul, 2014 [facility] [place] [facility] [address] [id number] [place] [address]- 9966 Jul, [facility] [place] [facility] [address] [id number] [place] [address]- 2393 Jul, [facility] [place] [facility] [address] [id number] [place] [address]- 6158 Jul, [facility] [place] [facility] [address] [id number] [place] [address]- 0258 Jun, [facility] [place] [facility] [address] [id number] [place] [address]- 4974 Jun, [facility] [place] [facility] [address] [id number] [place] [address]- 9712 Jun, [facility] [place] [facility] [address] [id number] [place] [address]- 6772 Jun, [facility] [place] [facility] [address] [id number] [place] [address]- 7445 Jun, [facility] [place] [facility] [address] [id number] [place] [address]- 8442 Jun, [facility] [place] [facility] [address] [id number] [place] [address]- 9181 Jun, [facility] [place] [facility] [address] [id number] [place] [address]- 7071 May, [facility] [place] [facility] [address] [id number] [place] [address]- 9948 May, [facility] [place] [facility] [address] [id number] [place] [address]- 7606 May, [facility] [place] [facility] [address] [id number] [place] [address]- 2007 May, [facility] [place] [facility] [address] [id number] [place] [address]- 0738 May, 2013 [facility] [place] [facility] [address] [id number] [place] [address]- 2686 May, 2013 [facility] [place] [facility] [address] [id number] [place] [address]- 6325 May, 2013 [facility] [place] [facility] [address] [id number] [place] [address]- 9947 May, 2013 [facility] [place] [facility] [address] [id number] [place] [address]- 8216 May, 2013 [facility] [place] [facility] [address] [id number] [place] [address]- 6176 May, 2013 [facility] [place] [facility] [address] [id number] [place] [address]- 0480 May, [facility] [place] [facility] [address] [id number] [place] [address]- 8009 May, [facility] [place] [facility] [address] [id number] [place] [address]- 2276 Apr, [facility] [place] [facility] [address] [id number] [place] [address]- 5017 Apr, [facility] [place] [facility] [address] [id number] [place] [address]- 6892 Apr, [facility] [place] [facility] [address] [id number] [place] [address]- 3085 Apr, [facility] [place] [facility] [address] [id number] [place] [address]- 3371 Apr, [facility] [place] [facility] [address] [id number] [place] [address]- 6835 Apr, [facility] [place] [facility] [address] [id number] [place] [address]- 2767 Apr, [facility] [place] [facility] [address] [id number] [place] [address]- 6756 Apr, [facility] [place] [facility] [address] [id number] [place] [address]- 1570 Apr, [facility] [place] [facility] [address] [id number] [place] [address]- 0802 Apr, [facility] [place] [facility] [address] [id number] [place] [address]- 1883 March, [facility] [place] [facility] [address] [id number] [place] [address]- 9537 March, [facility] [place] [facility] [address] [id number] [place] [address]- 7521 March, [facility] [place] [facility] [address] [id number] [place] [address]- 3482 March, [facility] [place] [facility] [address] [id number] [place] [address]- 6999 March, [facility] [place] [facility] [address] [id number] [place] [address]- 6030 March, [facility] [place] [facility] [address] [id number] [place] [address]- 2962 Feb, [facility] [place] [facility] [address] [id number] [place] [address]- 1842 Feb, [facility] [place] [facility] [address] [id number] [place] [address]- 9778 Feb, [facility] [place] [facility] [address] [id number] [place] [address]- 3463 Feb, [facility] [place] [facility] [address] [id number] [place] [address]- 1038 Feb, [facility] [place] [facility] [address] [id number] [place] [address]- 0885 Feb, [facility] [place] [facility] [address] [id number] [place] [address]- 9435 Feb, [facility] [place] [facility] [address] [id number] [place] [address]- 1700 Feb, [facility] [place] [facility] [address] [id number] [place] [address]- 2195 Feb, [facility] [place] [facility] [address] [id number] [place] [address]- 5021 Feb, [facility] [place] [facility] [address] [id number] [place] [address]- 9370 Jan, [facility] [place] [facility] [address] [id number] [place] [address]- 6609 Jan, [facility] [place] [facility] [address] [id number] [place] [address]- 1751 Jan, [facility] [place] [facility] [address] [id number] [place] [address] Jan, [facility] [place] [facility] [address] [id number] [place] [address] Jan, [facility] [place] [facility] [address] [id number] [place] [address] Jan, [facility] [place] [facility] [address] [id number] [place] [address] Jan, [facility] [place] [facility] [address] [facility] [id number] [place] [address] Jan, [facility] [place] [facility] [address] [id number] [place] [address] Dec, [facility] [place] [facility] [address] [id number] [place] [address] Dec, [facility] [place] [facility] [address] [id number] [place] [address] Dec, [facility] [place] [facility] [address] [facility] [id number] [place] [address] Dec, [facility] [place] [facility] [address] [facility] [id number] [place] [address] Dec, [facility] [place] [facility] [address] [id number] [place] [address] Dec, [facility] [place] [facility] [address] [id number] [place] [address]- [address] Dec, [facility] [place] [facility] [address] [id number] [place] [address]- [address] Dec, [facility] [place] [facility] [address] [id number] [place] [address]- [address] Nov, [facility] [place] [facility] [address] [id number] [place] [address]- [address] Nov, [facility] [place] [facility] [address] [id number] [place] [address] Nov, [facility] [place] [facility] [address] [id number] [place] [address]- [address] Nov, [facility] [place] [facility] [address] [id number] [place] [address] Nov, [facility] [place] [facility] [address] [id number] [place] [address] Nov, [facility] [place] [facility] [address] [id number] [place] [address] Nov, [facility] [place] [facility] [address] [id number] [place] [address]- [address] Nov, [facility] [place] [facility] [address] [id number], [place] [address] Nov, [facility] [place] [facility] [address] [id number] [place] [address] Nov, [facility] [place] [facility] [address] [id number] [place] [address]- [address] Nov, [facility] [place] [facility] [address] [id number] [place] [address] Oct, [facility] [place] [facility] [address] [id number] [place] [address] Oct, [facility] [place] [facility] [address] [id number] [place] [address] Oct, [facility] [place] [facility] [address] [id number] [place] [address] Oct, [facility] [place] [facility] [address] [id number] [place] [address] Sep, [facility] [place] [facility] [address] [id number] [place] [address]- [address] Sep, [facility] [place] [facility] [address] [id number] [place] [address] Sep, [facility] [place] [facility] [address] [id number] [place] [address]- [address] Sep, [facility] [place] [facility] [address] [id number] [place] [address] Aug, [facility] [place] [facility] [address] [id number] [place] [address] Aug, [facility] [place] [facility] [address] [id number] [place] [address]- [address] Aug, [facility] [place] [facility] [address] [facility] [id number] [place] [address]- [address] Aug, [facility] [place] [facility] [address] [id number] [place] [address]- [address] Aug, [facility] [place] [facility] [address] [id number] [place] [address] Aug, [facility] [place] [facility] [address] [id number] [place] [address]- [address] Aug, [facility] [place] [facility] [address] [facility] [id number] [place] [address]- [address] Aug, [facility] [place] [facility] [address] [id number] [place] [address]- [address] Jul, [facility] [place] [facility] [address] [id number] [place] [address]- [address] 27 Sep, 2012 [facility] [place] [facility] [address] [id number] [place] [address]- [address] 26 Sep, 2012 [facility] [place] [facility] [address] [id number] [place] [address] 2549 24 Jul, 2012 [facility] [place] [facility] [address] [id number] [place] [address] 24 Sep, 2012 [facility] [address] [id number] [place] [address]- [address] 23 Sep, 2012 [facility] [place] [facility] [address] [id number] [place] [address]- [address] 19 Jul, 2012 [facility] [address] [id number] [place] [address]- [address] 18 Jul, 2012 [facility] [address] [id number] [place] [address]- [address] 17 Jul, 2012 [facility] [place] [facility] [address] [id number] [place] [address]- [address] 16 Jul, 2012 [facility] [place] [facility] [address] [id number] [place] [address]- [address] 13 Jul, 2012 [facility] [place] [facility] [address] [id number] [place] [address]04 13 Jul, 2012 [facility] [place] [facility] [address] [id number] [place] [address] 2545 12 Jul, 2012 [facility] [place] [facility] [address] [id number] [place] [address] 2540 11 Jul, 2012 [facility] [place] [facility] [address] [id number] [place] [address] 2549 04 Jul, 2012 [facility] [place] [facility] [address] [id number] [place] [address]- 1584 30 Jun, 2013 [facility] [place] [facility] [address] [id number] [place] [address] 8102 Jun, [facility] [address] [id number] [place] [address] 9522 Jun, [facility] [place] [facility] [address] [id number] [place] [address] 3420 May, [facility] [place] [facility] [address] [id number] [place] [address]- 0276 May, [facility] [place] [facility] [address] [id number] [place] [address]- 5618 May, [facility] [place] [facility] [address] [id number] [place] [address]- 3404 May, [facility] [place] [facility] [address] [id number] [place] [address] 8649 Apr, [facility] [place] [facility] [address] [id number] [place] [address]- 4242 Apr, [facility] [place] [facility] [address] [id number] [place] [address]- 2014 Apr, [facility] [place] [facility] [address] [id number] [place] [address]- 3081 Apr, [facility] [place] [facility] [address] [id number] [place] [address]- 5165 March, [facility] [place] [facility] [address] [id number] [place] [address] 8959 March, [facility] [place] [facility] [address] [id number] [place] [address]- 4578 March, [facility] [place] [facility] [address] [id number] [place] [address]- 7527 Feb, [facility] [place] [facility] [address] [id number] [place] [address]- 0977 Feb, [facility] [place] [facility] [address] [id number] [place] [address]- 0365 Jan, [facility] [place] [facility] [address] [id number] [place] [address]- 7242 Jan, [facility] [address] [id number] [place] [address]- 9153 Jan, [facility] [place] [facility] [address] [id number] [place] [address]- 5284 Jan, [facility] [address] [id number] [place] [address]- 6795 Jan, [facility] [address] [id number] [place] [address]- 6240 Dec, [facility] [address] [id number] [place] [address]- 1728 Dec, [facility] [address] [id number] [place] [address]- 2651 Dec, [facility] [address] [id number] [place] [address]- 3671 Dec, [facility] [address] [id number] [place] [address]- 9842 Dec, [facility] [address] [facility] [id number] [place] [address]- 1272 Dec, [facility] [address] [id number] [place] [address]- 5359 Dec, [facility] [address] [id number], [place] [address] Dec, [facility] [place] [facility] [address] [id number] [place] [address]- 9400 Nov, [facility] [place] [facility] [address] [id number] [place] [address] 3805 Nov, [facility] [place] [facility] [address] [id number] [place] [address]- 9109 Nov, [facility] [place] [facility] [address] [id number] [place] [address]- 7341 Nov, [facility] [place] [facility] [address] [id number] [place] [address]- 3598 Nov, [facility] [place] [facility] [address] [id number] [place] [address]- 5936 Nov, [facility] [place] [facility] [address] [id number] [place] [address]- 3128 Nov, [facility] [place] [facility] [address] [id number] [place] [address]- 0178 Oct, [facility] [place] [facility] [address] [id number] [place] [address]- 8422 Oct, [facility] [place] [facility] [address] [id number] [place] [address]- 6933 Oct, [facility] [place] [facility] [address] [id number] [place] [address]- 9492 Oct, [facility] [place] [facility] [address] [id number] [place] [address]- 8767 Oct, [facility] [place] [facility] [address] [id number] [place] [address]- 8418 Oct, [facility] [place] [facility] [address] [id number] [place] [address]- 6312 Oct, [facility] [place] [facility] [address] [id number] [place] [address]- 3873 Oct, [facility] [place] [facility] [address] [id number] [place] [address]- 2877 Sep, [facility] [place] [facility] [address] [id number] [place] [address]- 1715 Sep, [facility] [place] [facility] [address] [id number] [place] [address]- 9145 Sep, [facility] [place] [facility] [address] [id number] [place] [address]- 4953 Sep, [facility] [place] [facility] [address] [id number] [place] [address]- 0761 Sep, [facility] [place] [facility] [address] [id number] [place] [address]- 4346 Sep, [facility] [place] [facility] [address] [id number] [place] [address]- 2706 Sep, [facility] [place] [facility] [address] [id number] [place] [address]- 9703 Sep, [facility] [place] [facility] [address] [id number] [place] [address]- 7196 Sep, [facility] [place] [facility] [address] [id number] [place] [address]- 9398 Sep, [facility] [place] [facility] [address] [id number] [place] [address]- 9469 Sep, [facility] [place] [facility] [address] [id number] [place] [address]- 5151 Sep, [facility] [place] [facility] [address] [id number] [place] [address]- 5716 Sep, [facility] [place] [facility] [address] [id number] [place] [address]- 9478 Sep, [facility] [place] [facility] [address] [id number] [place] [address]- 1720 Sep, [facility] [place] [facility] [address] [id number] [place] [address]- 9278 Sep, [facility] [place] [facility] [address] [id number] [place] [address]- 3515 Sep, [facility] [place] [facility] [address] [id number] [place] [address]- 7520 Sep, [facility] [place] [facility] [address] [id number] [place] [address]- 6541 Sep, [facility] [place] [facility] [address] [id number] [place] [address]- 2339 Sep, [facility] [place] [facility] [address] [id number] [place] [address]- 7122 Aug, 2011 [facility] [place] [facility] [address] [id number] [place] [address]- 5820 Aug, [facility] [place] [facility] [address] [id number] [place] [address]- 1663 29 Aug, 2012 [facility] [place] [facility] [address] [id number] [place] [address]- 3730 Aug, [facility] [place] [facility] [address] [id number] [place] [address]- 4710 Aug, [facility] [place] [facility] [address] [id number] [place] [address]- 1890 Aug, [facility] [place] [facility] [address] [id number] [place] [address]- 3748 18 Aug, 2012 [facility] [place] [facility] [address] [id number], [place] [address]- 4912 Aug, [facility] [place] [facility] [address] [id number] [place] [address]- 9526 16 Aug, 2012 [facility] [place] [facility] [address] [id number], [place] [address]- 4429 16 Aug, 2012 [facility] [place] [facility] [address] [id number], [place] [address]- 6700 15 Aug, 2012 [facility] [place] [facility] [address] [id number], [place] [address]- 2270 Aug, [facility] [place] [facility] [address] [id number] [place] [address]- 5320 Aug, [facility] [place] [facility] [address] [id number], [place] [address]- 2600 Aug, [facility] [place] [facility] [address] [id number][place] [address]153 Aug, [facility] [place] [facility] [address] [id number] [place] [address]- 4479 14 Jul, 2012 [facility] [address] [id number] [place] [address]- 1934 10 Jul, 2012 [facility] [place] [facility] [address] [id number] [place] [address]- 1222 31 Jun, 2012 [facility] [place] [facility] [address] [id number] [place] [address]- 8624 Jun, [facility] [place] [facility] [address] [id number] [place] [address]- 3539 31 May, 2012 [facility] [place] [facility] [address] [id number] [place] [address]- 9644 May, [facility] [place] [facility] [address] [id number] [place] [address]- 4925 24 May, 2012 [facility] [address] [id number] [place] [address]- 7513 May, [facility] [place] [facility] [address] [id number] [place] [address]- 8774 May, [facility] [place] [facility] [address] [id number] [place] [address]- 5949 May, [facility] [place] [facility] [address] [id number] [place] [address]- 1183 Apr, [facility] [place] [facility] [address] [id number] [place] [address]- 6108 Apr, [facility] [place] [facility] [address] [id number] [place] [address]- 9407 March, [facility] [place] [facility] [address] [id number] [place] [address]- 5058 March, [facility] [place] [facility] [address] [id number] [place] [address]- 7394 March, [facility] [place] [facility] [address] [id number] [place] [address]- 1193 March, [facility] [place] [facility] [address] [id number] [place] [address]- 1675 March, [facility] [place] [facility] [address] [id number] [place] [address]- 5796 March, [facility] [place] [facility] [address] [id number] [place] [address]- 9508 Feb, [facility] [place] [facility] [address] [id number] [place] [address]- 8676 Feb, [facility] [place] [facility] [address] [id number] [place] [address]- 1167 Feb, [facility] [place] [facility] [address] [id number] [place] [address]- 8579 Feb, [facility] [place] [facility] [address] [id number] [place] [address]- 8458 Feb, [facility] [place] [facility] [address] [id number] [place] [address]- 9717 Feb, [facility] [place] [facility] [address] [id number] [place] [address]- 9365 Feb, [facility] [place] [facility] [address] [id number] [place] [address]- 0477 Feb, [facility] [place] [facility] [address] [id number] [place] [address]- 2243 Feb, [facility] [place] [facility] [address] [id number] [place] [address]- 5285 Jan, [facility] [place] [facility] [address] [id number] [place] [address]- 2706 Jan, [facility] [place] [facility] [address] [id number] [place] [address]- 6293 Jan, [facility] [place] [facility] [address] [id number] [place] [address]- 9850 Jan, [facility] [place] [facility] [address] [id number] [place] [address]- 9413 Jan, 2012 [facility] [place] [facility] [address] [id number] [place] [address]- 6500 20 Jan, 2012 [facility] [place] [facility] [address] [id number] [place] [address]246 14 Jan, 2012 [facility] [place] [facility] [address] [facility] [id number] [place] [address]- 8556 09 Jan, 2012 [facility] [place] [facility] [address] [id number] [place] [address]- 3404 09 Jan, 2012 [facility] [place] [facility] [address] [id number] [place] [address]- 6586 08 Jan, 2012 [facility] [place] [facility] [address] [facility] [id number] [place] [address]- 2041 07 Jan, 2012 [facility] [place] [facility] [address] [facility] [id number] [place] [address]- 9679 06 Jan, 2012 [facility] [place] [facility] [address] [id number] [place] [address]- 5600 02 Jan, 2012 [facility] [place] [facility] [address] [facility] [id number] [place] [address]- 2060 02 Jan, 2012 [facility] [place] [facility] [address] [facility] [id number] [place] [address]- 6809 28 Dec, 2011 [facility] [place] [facility] [address] [facility] [id number] [place] [address]- 4883 27 Dec, 2011 [facility] [place] [facility] [address] [id number] [place] [address]- 7264 25 Dec, 2011 [facility] [place] [facility] [address] [id number] [place] [address]- 3156 23 Dec, 2011 [facility] [place] [facility] [address] [facility] [id number] [place] [address]- 0096 16 Dec, 2011 [facility] [place] [facility] [address] [facility] [id number] [place] [address]- 8450 08 Dec, 2011 [facility] [place] [facility] [address] [id number] [place] [address]- 4659 08 Dec, 2011 [facility] [address] [id number] [place] [address]- 0046 Dec, [facility] [place] [facility] [address] [id number] [place] [address] 2546 07 Dec, 2011 [facility] [address] [id number] [place] [address]- 2386 Nov[facility] [address] [id number] [place] [address]- 9525 Nov, [facility] [address] [id number] [place] [address]- 7812 Nov, [facility] [address] [id number] [place] [address]- 2663 Nov, [facility] [address] [id number] [place] [address]- 8241 Oct, [facility] [address] [id number] [place] [address]- 6250 Oct, [facility] [address] [id number] [place] [address]- 7422 Oct, [facility] [address] [id number] [place] [address]- 4085 Oct, [facility] [address] [id number] [place] [address]- 4666 Oct, [facility] [address] [id number] [place] [address]- 7081 Oct, [facility] [place] [facility] [address] [id number] [place] [address]- 0535 Oct, [facility] [place] [facility] [address] [id number] [place] [address]- 3281 Sep, [facility] [place] [facility] [address] [id number] [place] [address]- 4171 Sep, [facility] [place] [facility] [address] [id number] [place] [address]- 0217 Sep, [facility] [place] [facility] [address] [id number] [place] [address]- 8340 Sep, [facility] [place] [facility] [address] [id number] [place] [address]- 7094 Sep, [facility] [place] [facility] [address] [id number] [place] [address]- 5782 Sep, [facility] [place] [facility] [address] [id number] [place] [address]- 3217 Sep, [facility] [place] [facility] [address] [id number] [place] [address]- 5796 Sep, [facility] [place] [facility] [address] [id number] [place] [address]- 5032 Sep, [facility] [place] [facility] [address] [id number] [place] [address]- 8750 Aug, [facility] [place] [facility] [address] [id number] [place] [address]- 9414 Aug, [facility] [place] [facility] [address] [id number] [place] [address]- 4553 Aug, [facility] [place] [facility] [address] [id number], [place] [address]- 2571 May, [facility] [place] [facility] [address] [id number], [place] [address]- 6211 Nov, [facility] [place] [facility] [address] [id number] [place] [address]- 5846 Oct, [facility] [place] [facility] [address] [id number] [place] [address]- 7355 Oct, [facility] [place] [facility] [address] [id number] [place] [address]- 8147 Oct, [facility] [place] [facility] [address] [id number] [place] [address]- 8578 02 Oct, 2010 [facility] [address] [id number] [place] [address]- 4696 Oct, [facility] [address] [id number] [place] [address]- 2846 03 Sep, 2010 [facility] [address] [id number] [place] [address]- 9860 02 Sep, 2010 [facility] [address] [id number] [place] [address] 2548 14 Jul, 2010 [facility] [address] [id number] [place] [address]- 1391 31 Oct, 2009 [facility] [address] [id number] [place] [address]- 7933 Oct, [facility] [address] [facility] [id number] [place] [address]- 9848 Oct, [facility] [address] [id number] [place] [address]- 2189 Oct, [facility] [address] [facility] [id number] [place] [address]- 0666 30 Sep, 2009 [facility] [address] [facility] [id number], [place] [address]- 0641 13 Sep, 2009 [facility] [address] [id number] [place] [address] 2546 Sep, [facility] [address] [id number], [place] [address] 2547 04 Sep, 2009 [facility] [address] [id number] [place] [address] 2542 03 Sep, 2009 [facility] [address] [facility] [id number] [place] [address]- 2549 11 Jul, 2009 [facility] [address] [id number], [place] [address]- 7333 Apr, [facility] [address] [facility] [id number] [place] [address]- 8356 Dec, IMMUNIZATIONS No Known Immunizations SOCIAL HISTORY Never Assessed REASON FOR VISIT fell yesterday c/o ankle pain JStrasserRN PLAN OF CARE Activity Details Follow Up w/ Dr. Jj on 05/17 Reason:ankle pain and falling VITAL SIGNS Height 67 in 2018-05-12 Weight 200.2 lbs 2018-05-12 Temperature 99.4 degrees Fahrenheit 2018-05-12 Heart Rate 70 bpm 2018-05-12 Respiratory Rate 22 2018-05-12 Oximetry 95 % 2018-05-12 BMI 31.35 kg/m2 2018-05-12 Blood pressure systolic 120 mmHg 2018-05-12 Blood pressure diastolic 80 mmHg 2018-05-12 MEDICATIONS Medication Instructions Dosage Frequency Start Date End Date Duration Status Trazodone HCl 100 mg Orally Once a day 1 tablet at bedtime 24h Apr, 30 day(s) Active Lisinopril 5 MG Orally Once a day 1 tablet 24h Active Test strips Test Strips subcutaneously 2 times a day, accucheck christiano 1 test strip Dec, Active Prozac 40 mg Orally Once a day 1 capsule 24h 30 Active Amlodipine Besylate 5 MG Orally Once a day 1 tablet 24h Active ProAir HFA 90 mcg/actuation inhale 2 puffs by Inhalation route every 4 hours as needed PRN shortness of breath/cough March, Active Atorvastatin Calcium 40 MG TAKE ONE TABLET BY MOUTH DAILY 90 Active Cyclobenzaprine HCl 10 mg Orally Three times a day 1 tablet as needed 8h Apr, Active Tramadol HCl 50 mg Orally 3 times a day 1 tablet as needed 8h March, Active Gabapentin 600 MG Orally Once a day 1 capsule before bedtime 24h Active Levothyroxine Sodium 50 MCG TAKE ONE TABLET BY MOUTH DAILY 90 Active Gabapentin 300 MG TAKE TWO CAPSULES BY MOUTH THREE TIMES A DAY 90 Active Naprosyn 500 mg Orally 2 times a day 1 tablet with food or milk as needed 12h Apr, Active Flonase 50 MCG/ACT Nasally twice a day 1 spray in each nostril 12h Apr, 30 day(s) Active Protonix 40 MG Orally Once a day 1 tablet 24h Jan, 30 day(s) Active Metformin HCl 500 MG Orally Twice a day 1 tablet with meals 12h Active RESULTS No Results PROCEDURES No Known procedures INSTRUCTIONS MEDICATIONS ADMINISTERED No Known Medications MEDICAL (GENERAL) HISTORY Type Description Date Medical History hypertension Medical History hyperlipidemia Medical History diabetes type II Medical History COPD Medical History asthma Surgical History hysterectomy Surgical History arthritis surgery Hospitalization History surgeries
--- OUTSIDE RECORDS SUMMARY | 2018-11-26 16:05 | XMS REPORT ---
Author Author KING FISHMAN Organization [facility] Address [address] [place] [address] Care Team Providers Care Lightning Protection Installer Name Role Phone KING FISHMAN Unavailable PROBLEMS Type Condition ICD9-CM Code QTC36-GG Code Onset Dates Condition Status SNOMED Code Problem Gastroesophageal reflux disease, esophagitis presence not specified K21.9 Active 316400708 Problem Lumbago with sciatica, right side M54.41 Active [id number] Problem Lumbago with sciatica, left side M54.42 Active 701334889 Problem Iron deficiency anemia due to chronic blood loss D50.0 Active 288955489 Problem Seizures R56.9 Active 20540583 Problem Cigarette nicotine dependence without complication F17.210 Active 59846198 Problem Other chronic pain G89.29 Active 10256627 Problem Chronic obstructive pulmonary disease, unspecified COPD type J44.9 Active 05664847 Problem Pain in right ankle and joints of right foot M25.571 Active 34480997767562 Problem Reactive depression F32.9 Active 77981044 Problem Mixed hyperlipidemia E78.2 Active 437650762 Problem Essential hypertension I10 Active 39461594 Problem Prediabetes R73.03 Active 341432854 Problem Acquired hypothyroidism E03.9 Active 179973071 ALLERGIES Substance Reaction Event Type Date Status Penicillin G Potassium anaphylaxis Drug Allergy Apr, Active Codeine Sulfate anaphylaxis Drug Allergy Apr, Active Aspirin hives Drug Allergy Apr, Active Peanut hives Non Drug Allergy Apr, Active ENCOUNTERS Encounter Location Date Diagnosis [facility] [address] [facility] [id number] [address] Jul, [facility] [address] [facility] [id number], [place] [address] Jun, Iron deficiency anemia due to chronic blood loss D50.0 and Hematochezia K92.1 [facility] [id number] [place] [address] 26768- 3023 Jun, Gastroenteritis K52.9 and Abnormal RBC indices R71.8 [facility] [address] [address]- [address] Jun, [facility] [address] [address] 2546 Jun, Chest congestion R09.89 and Seizures R56.9 [facility] [address] [address] 2545 May, Pain in thoracic spine M54.6 [facility] [address] [address]- 4776 May, [facility] [address] [address]- 7302 May, [facility] [address] [address]- 5775 May, [facility] [address] [address]- [address]453 May, Acute non-recurrent frontal sinusitis J01.10 and Dermatitis L30.9 [facility] [id number] [place] [address] 80637- 2223 May, [facility] [id number] [place] [address] 47420- 8377 May, Pain in thoracic spine M54.6 [facility] [id number] [place] [address] 77402 2540 May, [facility] [address] [address]- 7633 May, Acute nasopharyngitis J00 [facility] [address] 24787- 2540 May, [facility] [address] [address]305- 5755 May, [facility] [id number] [place] [address] 59826- 3831 Apr, [facility] [id number] [place] [address] 53222- 6109 Apr, [facility] [id number] [place] [address] 11630- 1246 Apr, [facility] [id number] [place] [address] 34531- 1909 Apr, [facility] [id number] [place] [address] 27506- 3464 Apr, Pain in right ankle and joints of right foot M25.571 [facility] [id number] [place] [address] 10004- 9102 Apr, [facility] [id number] [place] [address] 53353- 4002 Apr, Bronchitis J40 ; Pain in right ankle and joints of right foot M25.571 ; Other chronic pain G89.29 ; Prediabetes R73.03 ; Chronic obstructive pulmonary disease, unspecified COPD type J44.9 and Cigarette nicotine dependence without complication F17.210 [facility] [id number] [place] [address] 64425 -9089 Apr, Seasonal allergic rhinitis, unspecified trigger J30.2 [facility] [id number] [place] [address] 74663- 4603 Apr, Onychomycosis B35.1 ; Onychocryptosis L60.0 and DM 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 [facility] [id number] [place] [address] 11179- 2551 Apr, Reactive depression F32.9 ; Thoracic myofascial strain, initial encounter S29.019A and Leg cramps R25.2 [facility] [id number] [place] [address] 38795- 6306 March, [facility] [id number] [place] [address] 02284- 5116 March, Type 2 diabetes mellitus with hyperglycemia E11.65 [facility] [id number] [place] [address] 49010- 2767 March, Reactive depression F32.9 [facility] [address] 74649- 1403 March, Pain in thoracic spine M54.6 and Other chronic pain G89.29 [facility] [id number] [place] [address] 08850- 0089 Feb, [facility] [address] 14873- 7056 Jan, Reactive depression F32.9 ; Essential hypertension I10 ; Gastroesophageal reflux disease, esophagitis presence not specified K21.9 ; Lumbago with sciatica, left side M54.42 and Lumbago with sciatica, right side M54.41 [facility] [id number] [place] [address] 44962- 3472 Jan, Reactive depression F32.9 and Pharyngoesophageal dysphagia R13.14 [facility] [id number] [place] [address] 53196- 8612 Jan, [facility] [id number] [place] [address] 83932- 3872 Jan, Encounter for immunization Z23 [facility] [id number] [place] [address] 30135- 7648 Jan, Onychomycosis B35.1 and DM 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 [facility] [id number] [place] [address] 34620- 3913 Jan, [facility] [id number] [place] [address] 04750- 0411 Jan, Prediabetes R73.03 [facility] [id number] [place] [address]- 6005 Dec, [facility] [address] 51288- 5190 Dec, Essential hypertension I10 ; Mixed hyperlipidemia E78.2 ; Acquired hypothyroidism E03.9 ; Reactive depression F32.9 and Prediabetes R73.03 [facility] [address] 25819- 9419 Dec, [facility] [address] 59722- 7080 Dec, [facility] [address] 65290- 4461 Dec, DM 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 [facility] [id number] [place] [address] 21186 -0855 Dec, Bruise T14.8XXA ; Type 2 diabetes mellitus with hyperglycemia E11.65 and care home current use of insulin Z79.4 [facility] [id number] [place] [address] 26341- 5874 Oct, [facility] [id number] [place] [address] 16580- 6379 March, Onychomycosis B35.1 and DM 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 [facility] [id number] [place] [address] 44605- 5983 Jun, [facility] [id number] [place] [address] 80366- 8173 Jun, [facility] [id number] [address] 11400- 8629 Jun, COPD with acute exacerbation 491.21 [facility] [id number] [place] [address] 50295- 4088 Apr, [facility] [address] 49344- 7925 14 Feb, 2015 [facility] [place] [facility] [address] [id number] [place] [address]- 0549 13 Feb, 2015 [facility] [place] [facility] [address] [id number] [place] [address]- 9554 26 Jan, 2015 [facility] [place] [facility] [address] [id number] [place] [address]- 5013 26 Jan, 2015 [facility] [place] [facility] [address] [id number] [place] [address]- 5241 2015 [facility] [place] [facility] [address] [id number] [place] [address]- 9971 2015 [facility] [place] [facility] [address] [id number] [place] [address]- 8055 24 Jan, 2015 [facility] [place] [facility] [address] [id number] [place] [address]- 2777 Jan, [facility] [place] [facility] [address] [id number] [place] [address]- 6652 23 Jan, 2015 [facility] [place] [facility] [address] [id number] [place] [address]- 0077 23 Jan, 2015 [facility] [place] [facility] [address] [id number] [place] [address]- 5353 23 Jan, 2015 [facility] [place] [facility] [address] [id number] [place] [address]- 2585 19 Jan, 2015 [facility] [place] [facility] [address] [id number], [place] [address]- 7293 19 Jan, 2015 [facility] [place] [facility] [address] [id number] [place] [address]- 8117 18 Jan, 2015 [facility] [place] [facility] [address] [id number] [place] [address]- 7703 18 Jan, 2015 [facility] [place] [facility] [address] [id number] [place] [address]- 8259 16 Jan, 2015 [facility] [place] [facility] [address] [id number] [place] [address]- 1266 16 Jan, 2014 [facility] [place] [facility] [address] [id number] [place] [address]- 5477 16 Jan, 2014 [facility] [place] [facility] [address] [id number] [place] [address]- 6303 16 Jan, 2014 [facility] [place] [facility] [address] [id number] [place] [address]- 6891 15 Jan, 2014 [facility] [place] [facility] [address] [id number] [place] [address]- 5195 13 Jan, 2014 [facility] [place] [facility] [address] [id number] [place] [address]- 1202 13 Jan, 2015 [facility] [place] [facility] [address] [id number] [place] [address]- 6830 13 Jan, 2014 [facility] [place] [facility] [address] [id number] [place] [address]- 2179 13 Jan, 2014 [facility] [place] [facility] [address] [id number] [place] [address]- 3345 12 Jan, 2015 [facility] [place] [facility] [address] [id number] [place] [address]- 8833 04 Jan, 2014 [facility] [place] [facility] [address] [facility] [id number] [place] [address]- 4011 04 Jan, 2015 [facility] [place] [facility] [address] [id number] [place] [address]- 9277 24 Dec, 2014 [facility] [place] [facility] [address] [id number] [place] [address]- 6415 24 Dec, 2014 [facility] [place] [facility] [address] [id number] [place] [address]- 5532 24 Dec, 2014 [facility] [place] [facility] [address] [id number] [place] [address]- 2446 24 Dec, 2014 [facility] [place] [facility] [address] [id number] [place] [address]- 7687 Dec, [facility] [place] [facility] [address] [id number] [place] [address]- 3092 Dec, [facility] [place] [facility] [address] [id number] [place] [address]- 2472 Dec, [facility] [place] [facility] [address] [id number] [place] [address]- 8780 Dec, [facility] [place] [facility] [address] [id number] [place] [address]- 4638 Dec, [facility] [place] [facility] [address] [id number] [place] [address]- 2563 Dec, [facility] [place] [facility] [address] [id number] [place] [address]- 8858 Dec, [facility] [place] [facility] [address] [id number] [place] [address]- 7113 Dec, [facility] [place] [facility] [address] [id number] [place] [address]- 5970 Nov, [facility] [place] [facility] [address] [id number] [place] [address]- 8926 Nov, [facility] [place] [facility] [address] [id number] [place] [address]- 8159 Nov, [facility] [place] [facility] [address] [id number], [place] [address]- 0075 Nov, [facility] [place] [facility] [address] [id number], [place] [address]- 7079 Nov, [facility] [place] [facility] [address] [id number] [place] [address]- 0701 Nov, [facility] [place] [facility] [address] [facility] [id number] [place] [address]- 9175 Nov, [facility] [place] [facility] [address] [id number] [place] [address]- 4517 Nov, [facility] [place] [facility] [address] [id number] [place] [address]- 1592 Nov, [facility] [address] [id number] [place] [address]- 9366 Nov, [facility] [address] [id number] [place] [address]- 1044 Nov, [facility] [address] [id number] [place] [address]- 5039 Nov, [facility] [address] [id number] [place] [address]- 8822 Oct, [facility] [address] [id number] [place] [address]- 4783 Oct, [facility] [address] [id number] [place] [address]- 3467 Oct, [facility] [address] [id number] [place] [address]- 3941 Oct, [facility] [address] [id number] [place] [address]- 3469 Oct, [facility] [address] [id number] [place] [address]- 8691 Oct, [facility] [address] [id number] [place] [address]- 9310 Oct, [facility] [place] [facility] [address] [id number] [place] [address]- 1074 23 Oct, 2014 [facility] [address] [id number] [place] [address]- 8623 Oct, [facility] [place] [facility] [address] [id number] [place] 0803 17 Oct, 2014 [facility] [place] [facility] [address] [id number] [place] 0440 16 Oct, 2014 [facility] [place] [facility] [address] [id number] [place] [address]- 0857 16 Oct, 2014 [facility] [place] [facility] [address] [id number] [place] [address]- 7721 Oct, [facility] [place] [facility] [address] [id number] [place] [address]- 3083 Oct, [facility] [place] [facility] [address] [id number] [place] [address]- 6750 Oct, [facility] [place] [facility] [address] [id number] [place] [address]- 9519 Sep, [facility] [place] [facility] [address] [id number] [place] [address]- 5852 Sep, [facility] [place] [facility] [address] [id number] [place] [address]- 8656 Sep, [facility] [place] [facility] [address] [facility] [id number] [place] [address]- 3650 Sep, [facility] [place] [facility] [address] [id number] [place] [address]- 0633 Aug, [facility] [place] [facility] [address] [id number] [place] [address]- 9147 Aug, [facility] [place] [facility] [address] [facility] [id number], [place] [address]- 4766 Aug, [facility] [place] [facility] [address] [facility] [id number], [place] [address]- 6856 Aug, [facility] [place] [facility] [address] [id number], [place] [address]- 9835 Aug, [facility] [place] [facility] [address] [id number], [place] [address]- 9836 Aug, [facility] [place] [facility] [address] [id number], [place] [address]- 2590 Jul, [facility] [place] [facility] [address] [id number], [place] [address]- 0323 Jul, [facility] [place] [facility] [address] [id number], [place] [address]- 9506 15 Jul, 2014 [facility] [place] [facility] [address] [id number] [place] [address]- 2002 15 Jul, 2014 [facility] [place] [facility] [address] [id number] [place] [address]- 7125 Jul, [facility] [place] [facility] [address] [id number] [place] [address]- 2906 Jul, [facility] [place] [facility] [address] [id number] [place] [address]- 8943 Jun, [facility] [place] [facility] [address] [id number] [place] [address]- 9420 Jun, [facility] [place] [facility] [address] [id number] [place] [address]- 8159 Jun, [facility] [place] [facility] [address] [id number] [place] [address]- 9120 Jun, [facility] [place] [facility] [address] [id number] [place] [address]- 7706 Jun, [facility] [place] [facility] [address] [id number] [place] [address]- 4606 Jun, [facility] [place] [facility] [address] [id number] [place] [address]- 2074 Jun, [facility] [place] [facility] [address] [id number] [place] [address]- 9466 May, [facility] [place] [facility] [address] [id number] [place] [address]- 3894 May, [facility] [place] [facility] [address] [id number] [place] [address]- 1520 May, [facility] [place] [facility] [address] [id number] [place] [address]- 9302 May, [facility] [place] [facility] [address] [id number] [place] [address]- 0338 May, [facility] [place] [facility] [address] [id number] [place] [address]- 1183 May, 2013 [facility] [place] [facility] [address] [id number] [place] [address]- 7827 May, 2013 [facility] [place] [facility] [address] [id number] [place] [address]- 5444 May, 2013 [facility] [place] [facility] [address] [id number] [place] [address]- 8353 May, 2013 [facility] [place] [facility] [address] [id number] [place] [address]- 4226 May, 2013 [facility] [place] [facility] [address] [id number] [place] [address]- 2435 May, [facility] [place] [facility] [address] [id number] [place] [address]- 8646 May, [facility] [place] [facility] [address] [id number] [place] [address]- 1122 Apr, [facility] [place] [facility] [address] [id number] [place] [address]- 5181 Apr, [facility] [place] [facility] [address] [id number] [place] [address]- 0032 Apr, [facility] [place] [facility] [address] [id number] [place] [address]- 9493 Apr, [facility] [place] [facility] [address] [id number] [place] [address]- 4952 Apr, [facility] [place] [facility] [address] [id number] [place] [address]- 0128 Apr, [facility] [place] [facility] [address] [id number] [place] [address]- 5693 Apr, [facility] [place] [facility] [address] [id number] [place] [address]- 0948 Apr, [facility] [place] [facility] [address] [id number] [place] [address]- 4055 Apr, [facility] [place] [facility] [address] [id number] [place] [address]- 3735 Apr, [facility] [place] [facility] [address] [id number] [place] [address]- 5833 March, [facility] [place] [facility] [address] [id number] [place] [address]- 7326 March, [facility] [place] [facility] [address] [id number] [place] [address]- 0549 March, [facility] [place] [facility] [address] [id number] [place] [address]- 0119 March, [facility] [place] [facility] [address] [id number] [place] [address]- 1652 March, [facility] [place] [facility] [address] [id number] [place] [address]- 5380 March, [facility] [place] [facility] [address] [id number] [place] [address]- 1587 Feb, [facility] [place] [facility] [address] [id number] [place] [address]- 0233 Feb, [facility] [place] [facility] [address] [id number] [place] [address]- 0658 Feb, [facility] [place] [facility] [address] [id number] [place] [address]- 9758 Feb, [facility] [place] [facility] [address] [id number] [place] [address]- 9464 Feb, [facility] [place] [facility] [address] [id number] [place] [address] Feb, [facility] [place] [facility] [address] [id number] [place] [address] Feb, [facility] [place] [facility] [address] [id number] [place] [address] Feb, [facility] [place] [facility] [address] [id number] [place] [address] Feb, [facility] [place] [facility] [address] [id number] [place] [address] Feb, [facility] [place] [facility] [address] [id number] [place] [address] Jan, [facility] [place] [facility] [address] [id number] [place] [address] Jan, [facility] [place] [facility] [address] [id number] [place] [address] Jan, [facility] [place] [facility] [address] [id number] [place] [address] Jan, [facility] [place] [facility] [address] [id number] [place] [address] Jan, [facility] [place] [facility] [address] [id number] [place] [address] Jan, [facility] [place] [facility] [address] [id number] [place] [address] Jan, [facility] [place] [facility] [address] [id number] [place] [address] Jan, [facility] [place] [facility] [address] [facility] [id number] [place] [address] Dec, [facility] [place] [facility] [address] [id number] [place] [address] Dec, [facility] [place] [facility] [address] [facility] [id number] [place] [address] Dec, [facility] [place] [facility] [address] [id number] [place] [address] Dec, [facility] [place] [facility] [address] [facility] [id number] [place] [address] 69[address] Dec, [facility] [place] [facility] [address] [facility] [id number] [place] [address] Dec, [facility] [place] [facility] [address] [id number] [place] [address] Dec, [facility] [place] [facility] [address] [id number] [place] [address] 2966 Dec, [facility] [place] [facility] [address] [id number] [place] [address] 134[address] Nov, [facility] [place] [facility] [address] [id number] [place] [address]39 Nov, [facility] [place] [facility] [address] [id number] [place] [address] Nov, [facility] [place] [facility] [address] [id number] [place] [address] Nov, [facility] [place] [facility] [address] [id number] [place] [address] 69[address] Nov, [facility] [place] [facility] [address] [id number] [place] [address]- [address] Nov, [facility] [place] [facility] [address] [id number] [place] [address] Nov, [facility] [place] [facility] [address] [id number] [place] [address]603 Nov, [facility] [place] [facility] [address] [id number], [place] [address] Nov, [facility] [place] [facility] [address] [id number], [place] [address] Nov, [facility] [place] [facility] [address] [id number] [place] [address] 8440 Nov, [facility] [place] [facility] [address] [id number], [place] [address]- [address] Oct, [facility] [place] [facility] [address] [id number] [place] [address] Oct, [facility] [place] [facility] [address] [id number] [place] [address] 1677 Oct, [facility] [address] [id number] [place] [address] 284[address] Oct, [facility] [place] [facility] [address] [id number] [place] [address] Sep, [facility] [place] [facility] [address] [id number] [place] [address]- [address] Sep, [facility] [place] [facility] [address] [id number] [place] [address] Sep, [facility] [place] [facility] [address] [id number] [place] [address] Sep, [facility] [place] [facility] [address] [id number] [place] [address] Aug, [facility] [place] [facility] [address] [id number] [place] [address]696 Aug, [facility] [place] [facility] [address] [id number] [place] [address] Aug, [facility] [place] [facility] [address] [id number] [place] [address]- [address] Aug, [facility] [place] [facility] [address] [id number] [place] [address] 2610 Aug, [facility] [place] [facility] [address] [id number] [place] [address] 9894 Aug, [facility] [place] [facility] [address] [id number], [place] [address] Aug, [facility] [place] [facility] [address] [id number] [place] [address] Aug, [facility] [place] [facility] [address] [id number] [place] [address]709 Jul, [facility] [place] [facility] [address] [id number] [address] Jul, [facility] [place] [facility] [address] [id number] [place] [address]43 26 Jul, 2012 [facility] [place] [facility] [address] [id number] [place] [address] 2542 24 Jul, 2012 [facility] [place] [facility] [address] [id number] [place] [address] 2545 24 Jul, 2012 [facility] [place] [facility] [address] [id number] [place] [address] 2547 23 Jul, 2012 [facility] [place] [facility] [address] [id number] [place] [address] 19 Jul, 2012 [facility] [place] [facility] [address] [id number] [place] [address] 350[address] 18 Jul, 2012 [facility] [place] [facility] [address] [id number] [place] [address] 0935 17 Jul, 2012 [facility] [place] [facility] [address] [id number] [place] [address] 0349 16 Jul, 2012 [facility] [place] [facility] [address] [id number] [place] [address] 2727 13 Jul, 2012 [facility] [place] [facility] [address] [id number] [place] [address]- 6669 13 Jul, 2012 [facility] [place] [facility] [address] [id number] [place] [address]01 12 Jul, 2012 [facility] [place] [facility] [address] [id number] [place] [address] 2544 11 Jul, 2012 [facility] [place] [facility] [address] [id number] [place] [address]- 2544 04 Jul, 2012 [facility] [place] [facility] [address] [id number] [place] [address]- 2545 30 Jun, 2013 [facility] [place] [facility] [address] [id number] [place] [address] 3278 20 Jun, 2013 [facility] [place] [facility] [address] [id number] [place] [address]- 5886 Jun, [facility] [address] [id number] [place] [address]- 2536 May, [facility] [place] [facility] [address] [id number] [place] [address]- 3595 May, [facility] [place] [facility] [address] [id number] [place] [address]- 5985 May, [facility] [place] [facility] [address] [id number] [place] [address]- 8494 May, [facility] [place] [facility] [address] [id number] [place] [address]- 2051 Apr, [facility] [place] [facility] [address] [id number] [place] [address]- 7209 Apr, [facility] [place] [facility] [address] [id number] [place] [address]- 8321 Apr, [facility] [place] [facility] [address] [id number] [place] [address]- 2987 Apr, [facility] [place] [facility] [address] [id number] [place] [address] 2129 March, [facility] [place] [facility] [address] [id number] [place] [address]- 0855 March, [facility] [place] [facility] [address] [id number] [place] [address]- 4439 March, [facility] [place] [facility] [address] [id number] [place] [address]- 8177 Feb, [facility] [place] [facility] [address] [id number] [place] [address]- 6320 Feb, [facility] [place] [facility] [address] [id number] [place] [address]- 4541 Jan, [facility] [place] [facility] [address] [id number] [place] [address]- 5435 Jan, [facility] [place] [facility] [address] [id number] [place] [address] 2548 Jan, [facility] [address] [id number] [place] [address]- 1375 Jan, [facility] [place] [facility] [address] [id number] [place] [address] 2546 Jan, [facility] [address] [id number] [place] [address]- 0026 Dec, [facility] [place] [facility] [address] [id number] [place] [address]- 7715 Dec, [facility] [address] [id number] [place] [address]- 3706 Dec, [facility] [address] [id number] [place] [address]- 4346 Dec, [facility] [place] [facility] [address] [id number] [place] [address]- 6391 Dec, [facility] [address] [id number] [place] [address]- 4949 Dec, [facility] [place] [facility] [address] [id number] [place] [address]- 7361 Dec, [facility] [place] [facility] [address] [id number] [place] [address]- 8477 Dec, [facility] [place] [facility] [address] [id number] [place] [address]- 1434 Nov, [facility] [place] [facility] [address] [id number] [place] [address]- 0333 Nov, [facility] [place] [facility] [address] [id number] [place] [address] 254 Nov, [facility] [place] [facility] [address] [id number] [place] [address]- 7001 Nov, [facility] [place] [facility] [address] [id number] [place] [address]- 1026 Nov, [facility] [place] [facility] [address] [id number] [place] [address]- 7471 Nov, [facility] [place] [facility] [address] [id number] [place] [address]- 8698 Nov, [facility] [place] [facility] [address] [id number] [place] [address]- 2703 Oct, [facility] [place] [facility] [address] [id number] [place] [address]- 0246 Oct, [facility] [place] [facility] [address] [id number] [place] [address]- 8486 Oct, [facility] [place] [facility] [address] [id number] [place] [address]- 1979 Oct, [facility] [place] [facility] [address] [id number] [place] [address]- 1336 Oct, [facility] [place] [facility] [address] [id number] [place] [address]- 9794 Oct, [facility] [place] [facility] [address] [id number] [place] [address]- 1817 Oct, [facility] [place] [facility] [address] [id number] [place] [address]- 8088 Oct, [facility] [place] [facility] [address] [id number] [place] [address] 1965 Sep, [facility] [place] [facility] [address] [id number], [place] [address]- 4907 Sep, [facility] [place] [facility] [address] [id number] [place] [address]- 2969 Sep, [facility] [place] [facility] [address] [id number] [place] [address]- 8427 Sep, [facility] [place] [facility] [address] [id number] [place] [address]- 4770 Sep, [facility] [place] [facility] [address] [id number] [place] [address]- 7401 Sep, [facility] [place] [facility] [address] [id number] [place] [address]- 8893 Sep, [facility] [place] [facility] [address] [id number] [place] [address]- 2930 Sep, [facility] [place] [facility] [address] [id number] [place] [address]- 6920 Sep, [facility] [place] [facility] [address] [id number] [place] [address]- 7868 Sep, [facility] [place] [facility] [address] [id number] [place] [address]- 3990 Sep, [facility] [place] [facility] [address] [id number] [place] [address]- 6892 Sep, [facility] [place] [facility] [address] [facility] [id number] [place] [address]- 8398 Sep, [facility] [place] [facility] [address] [id number] [place] [address]- 0398 Sep, [facility] [place] [facility] [address] [facility] [id number] [place] [address]- 5123 Sep, [facility] [place] [facility] [address] [facility] [id number] [place] [address]- 7168 Sep, [facility] [place] [facility] [address] [facility] [id number] [place] [address] 254 Sep, [facility] [place] [facility] [address] [id number] [place] [address]- 4657 Sep, [facility] [place] [facility] [address] [id number] [place] [address]- 5440 Sep, [facility] [place] [facility] [address] [facility] [id number] [place] [address]- 4487 Sep, [facility] [place] [facility] [address] [facility] [id number] [place] [address]- 0244 Aug, [facility] [place] [facility] [address] [id number] [place] [address]- 7693 31 Aug, 2012 [facility] [place] [facility] [address] [id number] [place] [address]- 6808 29 Aug, 2012 [facility] [place] [facility] [address] [id number] [place] [address]- 1051 Aug, [facility] [place] [facility] [address] [id number] [place] [address]- 1862 27 Aug, 2012 [facility] [place] [facility] [address] [id number] [place] [address]- 8383 Aug, [facility] [place] [facility] [address] [id number] [place] [address]- 4946 18 Aug, 2012 [facility] [place] [facility] [address] [facility] [id number] [place] [address]- 4820 17 Aug, 2012 [facility] [place] [facility] [address] [id number], [place] [address]- 4809 16 Aug, 2012 [facility] [place] [facility] [address] [facility] [id number], [place] [address]- 7665 16 Aug, 2012 [facility] [place] [facility] [address] [facility] [id number], [place] [address]- 4809 15 Aug, 2012 [facility] [place] [facility] [address] [facility] [id number], [place] [address]- 4070 09 Aug, 2012 [facility] [place] [facility] [address] [id number], [place] [address]- 3041 05 Aug, 2012 [facility] [place] [facility] [address] [id number], [place] [address]- 0694 05 Aug, 2012 [facility] [place] [facility] [address] [id number], [place] [address]- 9897 04 Aug, 2012 [facility] [place] [facility] [address] [facility] [id number], [place] [address]- 8543 14 Jul, 2012 [facility] [place] [facility] [address] [id number], [place] [address]- 5963 Jul, [facility] [address] [id number] [place] [address]- 6815 Jun, [facility] [place] [facility] [address] [id number] [place] [address]- 6013 Jun, [facility] [place] [facility] [address] [id number] [place] [address]- 5968 May, [facility] [place] [facility] [address] [id number] [place] [address]- 1005 May, [facility] [place] [facility] [address] [id number] [place] [address]- 3044 May, [facility] [place] [facility] [address] [id number] [place] [address]- 4222 May, [facility] [address] [id number] [place] [address]- 5538 May, [facility] [place] [facility] [address] [id number] [place] [address]- 0711 May, [facility] [place] [facility] [address] [id number] [place] [address]- 4929 Apr, [facility] [place] [facility] [address] [id number] [place] [address]- 8091 Apr, [facility] [place] [facility] [address] [id number] [place] [address]- 9137 March, [facility] [place] [facility] [address] [id number] [place] [address]- 6070 March, [facility] [place] [facility] [address] [id number] [place] [address]- 1735 March, [facility] [place] [facility] [address] [id number] [place] [address]- 2995 March, [facility] [place] [facility] [address] [id number] [place] [address]- 6841 March, [facility] [place] [facility] [address] [id number] [place] [address]- 2694 March, [facility] [address] [id number] [place] [address]- 5694 Feb, [facility] [place] [facility] [address] [id number] [place] [address]- 2846 Feb, [facility] [place] [facility] [address] [id number] [place] [address]- 6956 Feb, [facility] [place] [facility] [address] [id number] [place] [address]- 8140 Feb, [facility] [place] [facility] [address] [id number] [place] [address]- 8464 Feb, [facility] [place] [facility] [address] [id number] [place] [address]- 6631 Feb, [facility] [place] [facility] [address] [id number] [place] [address]- 9417 Feb, [facility] [address] [id number] [place] [address]- 8354 Feb, [facility] [place] [facility] [address] [id number] [place] [address]- 5869 Feb, [facility] [place] [facility] [address] [id number] [place] [address]- 1424 Jan, [facility] [place] [facility] [address] [id number] [place] [address]- 8057 Jan, [facility] [place] [facility] [address] [id number] [place] [address]- 8428 Jan, [facility] [place] [facility] [address] [id number] [place] [address]- 6526 Jan, [facility] [place] [facility] [address] [id number] [place] [address]- 5336 Jan, [facility] [place] [facility] [address] [id number] [place] [address]- 5618 20 Jan, 2012 [facility] [place] [facility] [address] [id number] [place] [address]- 9328 14 Jan, 2012 [facility] [place] [facility] [address] [id number] [place] [address]- 0896 09 Jan, 2012 [facility] [place] [facility] [address] [id number] [place] [address]- 1116 09 Jan, 2012 [facility] [place] [facility] [address] [id number] [place] [address]- 9461 08 Jan, 2012 [facility] [place] [facility] [address] [id number] [place] [address]- 5596 07 Jan, 2012 [facility] [place] [facility] [address] [id number] [place] [address]- 4655 06 Jan, 2012 [facility] [place] [facility] [address] [facility] [id number] [place] [address]- 4551 Jan, [facility] [place] [facility] [address] [id number] [place] [address]- 6293 Jan, [facility] [place] [facility] [address] [id number] [place] [address]- 6951 28 Dec, 2011 [facility] [place] [facility] [address] [facility] [id number] [place] [address]- 5747 27 Dec, 2011 [facility] [place] [facility] [address] [id number] [place] [address]- 5013 25 Dec, 2011 [facility] [place] [facility] [address] [id number] [place] [address]- 9509 23 Dec, 2011 [facility] [place] [facility] [address] [id number] [place] [address]- 3173 16 Dec, 2011 [facility] [place] [facility] [address] [id number] [place] [address]- 0872 08 Dec, 2011 [facility] [place] [facility] [address] [facility] [id number] [place] [address]- 0487 08 Dec, 2011 [facility] [place] [facility] [address] [id number] [place] [address]- 4662 07 Dec, 2011 [facility] [address] [id number] [place] [address]- 8516 Dec, [facility] [place] [facility] [address] [id number] [place] [address]- 5766 Nov, [facility] [address] [id number] [place] [address]- 9351 Nov, [facility] [place] [facility] [address] [id number] [place] [address]- 7754 Nov, [facility] [address] [id number] [place] [address]- 1796 Nov, [facility] [address] [id number] [place] [address]- 5429 Oct, [facility] [address] [id number] [place] [address]- 6578 Oct, [facility] [address] [id number] [place] [address]- 2674 Oct, [facility] [address] [id number] [place] [address]- 1937 Oct, [facility] [address] [id number] [place] [address]- 7838 Oct, [facility] [place] [facility] [address] [id number] [place] [address]- 1573 Oct, [facility] [place] [facility] [address] [id number] [place] [address]- 7044 Oct, [facility] [place] [facility] [address] [id number] [place] [address]- 7373 Sep, [facility] [place] [facility] [address] [id number] [place] [address]- 9196 Sep, [facility] [place] [facility] [address] [id number] [place] [address]- 9622 Sep, [facility] [place] [facility] [address] [id number] [place] [address]- 5455 Sep, [facility] [place] [facility] [address] [id number] [place] [address]- 4904 Sep, [facility] [place] [facility] [address] [id number] [place] [address]- 2043 Sep, [facility] [place] [facility] [address] [id number] [place] [address]- 7847 Sep, [facility] [place] [facility] [address] [id number] [place] [address]- 5009 Sep, [facility] [place] [facility] [address] [id number] [place] [address]- 1244 Sep, [facility] [place] [facility] [address] [id number] [place] [address]- 6760 Aug, [facility] [place] [facility] [address] [id number] [place] [address]- 8962 Aug, [facility] [place] [facility] [address] [id number] [place] [address]- 9564 Aug, [facility] [place] [facility] [address] [id number] [place] [address]- 1289 May, [facility] [place] [facility] [address] [id number], [place] [address]- 0817 Nov, [facility] [place] [facility] [address] [id number], [place] [address]- 9967 Oct, [facility] [place] [facility] [address] [id number] [place] [address]- 2947 Oct, [facility] [place] [facility] [address] [id number] [place] [address]- 3252 Oct, [facility] [place] [facility] [address] [facility] [id number] [place] 5566 Oct, [facility] [place] [facility] [address] [facility] [id number], [place] [address]- 0532 Oct, [facility] [address] [facility] [id number], [place] [address]- 7806 03 Sep, 2010 [facility] [address] [facility] [id number], [place] [address] 2546 02 Sep, 2010 [facility] [address] [facility] [id number], [place] [address]- 7826 14 Jul, 2010 [facility] [address] [facility] [id number] [place] [address] 2546 31 Oct, 2009 [facility] [address] [facility] [id number] [place] [address], [place] [address]- 6096 Oct, [facility] [address] [facility] [id number], [place] [address]- 4100 Oct, [facility] [id number], [place] [address]- 3244 Oct, [facility] [address] [facility] [id number], [place] [address]- 5938 30 Sep, 2009 [facility] [id number], [place] [address]- 7226 Sep, [facility] [address] [id number], [place] [address]- 8393 Sep, [facility] [id number], [place] [address] 2546 04 Sep, 2009 [facility] [address] [facility] [id number], [place] [address] 2549 Sep, [facility] [address] [facility] [id number], [place] [address]- 1275 11 Jul, 2009 [facility] [address] [facility] [id number], [place] [address] 10 Apr, 2009 [facility] [address] [facility] [id number], [place] [address] 12 Dec, 2008 IMMUNIZATIONS No Known Immunizations SOCIAL HISTORY Never Assessed REASON FOR VISIT Trouble sleeping, Leg cramping - MPeters [place] PLAN OF CARE Activity Details Follow Up reg appt Reason: VITAL SIGNS Height 67 in 2018-04-30 Weight 191.5 lbs 2018-04-30 Temperature 97.7 degrees Fahrenheit 2018-04-30 Heart Rate 60 bpm 2018-04-30 Respiratory Rate 18 2018-04-30 BMI 29.99 kg/m2 2018-04-30 Blood pressure systolic 130 mmHg 2018-04-30 Blood pressure diastolic 64 mmHg 2018-04-30 MEDICATIONS Medication Instructions Dosage Frequency Start Date End Date Duration Status Lisinopril 5 MG Orally Once a day 1 tablet 24h Active Metformin HCl 500 MG Orally Twice a day 1 tablet with meals 12h Active Tramadol HCl 50 mg Orally 3 times a day 1 tablet as needed 8h March, Active Amlodipine Besylate 5 MG Orally Once a day 1 tablet 24h Active Atorvastatin Calcium 40 MG TAKE ONE TABLET BY MOUTH DAILY 90 Active Levothyroxine Sodium 50 MCG TAKE ONE TABLET BY MOUTH DAILY 90 Active Prozac 40 mg Orally Once a day 1 capsule 24h 30 Active Naprosyn 500 mg Orally 2 times a day 1 tablet with food or milk as needed 12h Apr, Active Cyclobenzaprine HCl 10 mg Orally Three times a day 1 tablet as needed 8h Apr, Active ProAir HFA 90 mcg/actuation inhale 2 puffs by Inhalation route every 4 hours as needed PRN shortness of breath/cough March, Active Trazodone HCl 100 mg Orally Once a day 1 tablet at bedtime 24h Apr, 30 day(s) Active Gabapentin 600 MG Orally Once a [...]
--- OUTSIDE RECORDS SUMMARY | 2018-11-26 16:06 | XMS REPORT ---
Author Author KING FISHMAN Organization [facility] Address [address] [place] [address] Care Team Providers Care Commercial Collections Specialist Name Role Phone KING FISHMAN Unavailable PROBLEMS Type Condition ICD9-CM Code VZU49-CC Code Onset Dates Condition Status SNOMED Code Problem Acquired hypothyroidism E03.9 Active 610307022 Problem Lumbago with sciatica, left side M54.42 Active 307463148 Problem Gastroesophageal reflux disease, esophagitis presence not specified K21.9 Active 755202504 Problem Prediabetes R73.03 Active 415369585 Problem Reactive depression F32.9 Active 17226392 Problem Mixed hyperlipidemia E78.2 Active 600523838 Problem Essential hypertension I10 Active 89149981 Problem Seizures R56.9 Active 34477048 Problem Chronic obstructive pulmonary disease, unspecified COPD type J44.9 Active 60010436 Problem Other chronic pain G89.29 Active 12048211 Problem Lumbago with sciatica, right side M54.41 Active [id number] Problem Pain in right ankle and joints of right foot M25.571 Active 92152972994726 Problem Cigarette nicotine dependence without complication F17.210 Active 91595699 ALLERGIES No Information ENCOUNTERS Encounter Location Date Diagnosis [place] [id number] [place] [address] 23987- 2903 Jul, [place] [address] [place] [id number] [place] [address] 56110- 2976 Jun, Gastroenteritis K52.9 and Abnormal RBC indices R71.8 [place] [address] [id number] [place] [address] 88945- 1039 Jun, [facility] [address] [id number] [place] [address] 79500- 5955 Jun, Chest congestion R09.89 and Seizures R56.9 [facility] [address] [facility] [id number], [place] [address] 2546 May, Pain in thoracic spine M54.6 [facility] [address] [facility] [id number] [place] [address] 76984 2546 May, [facility] [address] [place] [id number] [place] [address] 05394 2546 May, [facility] [address] [facility] [id number] [place] [address] 71514 2546 May, [facility] [address] [facility] [id number] [place] [address] 18297 2546 May, Acute non-recurrent frontal sinusitis J01.10 and Dermatitis L30.9 [facility] [address] [facility] [id number] [place] [address] 15141 2546 May, [facility] [address] [facility] [id number] [place] [address] 59100 2547 May, Pain in thoracic spine M54.6 [facility] [address] [facility] [id number] [place] [address] 29188 2546 May, [facility] [address] [facility] [id number] [place] [address] 68903 2546 May, Acute nasopharyngitis J00 [facility] [address] [facility] [id number], [place] [address] 2546 May, [facility] [address] [facility] [id number] [place] [address] 94015 2546 May, [facility] [address] [facility] [id number], [place] [address] 2546 Apr, [facility] [address] [facility] [id number] [place] [address] 14810 2546 Apr, [facility] [id number] [address] 254 Apr, [facility] [address] [place] [id number] [place] [address] 30771- 9083 Apr, [place] [address] [place] [id number] [place] [address] 39256- 6938 Apr, Pain in right ankle and joints of right foot M25.571 [place] [address] [place] [id number] [place] [address] 59642- 1273 Apr, [place] [address] 16635- 3501 Apr, Bronchitis J40 ; Pain in right ankle and joints of right foot M25.571 ; Other chronic pain G89.29 ; Prediabetes R73.03 ; Chronic obstructive pulmonary disease, unspecified COPD type J44.9 and Cigarette nicotine dependence without complication F17.210 [facility] [address] [place] [id number] [place] [address] 61215 -7372 Apr, Seasonal allergic rhinitis, unspecified trigger J30.2 [place] [address] [place] [id number] [place] [address] 42091- 5920 Apr, Onychomycosis B35.1 ; Onychocryptosis L60.0 and DM 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 [place] [address] [place] [id number] [place] [address] 62212- 6636 Apr, Reactive depression F32.9 ; Thoracic myofascial strain, initial encounter S29.019A and Leg cramps R25.2 [place] [address] [place] [id number] [place] [address] 80954- 4927 March, [place] [address] [id number] [place] [address] 05035- 3716 March, Type 2 diabetes mellitus with hyperglycemia E11.65 [place] [address] [place] [id number] [place] [address] 18506- 7839 March, Reactive depression F32.[address] 88995- 4930 08 May, 2018 Pain in thoracic spine M54.6 and Other chronic pain G89.29 [place] [address] 64831- 5763 Feb, [place] [address] 57088- 4263 Jan, Reactive depression F32.9 ; Essential hypertension I10 ; Gastroesophageal reflux disease, esophagitis presence not specified K21.9 ; Lumbago with sciatica, left side M54.42 and Lumbago with sciatica, right side M54.41 [place] [address] 88191- 6559 Jan, Reactive depression F32.9 and Pharyngoesophageal dysphagia R13.14 [place] [address] 65525- 8465 Jan, [place] [address] 00460- 4479 Jan, Encounter for immunization Z23 [address] 13477- 0877 Jan, Onychomycosis B35.1 and DM 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 [place] [address] 22735- 7286 Jan, [place] [address] 56468- 0225 Jan, Prediabetes R73.03 [place] [address] 01224- 0609 Dec, [place] [address] 64116- 4647 Dec, Essential hypertension I10 ; Mixed hyperlipidemia E78.2 ; Acquired hypothyroidism E03.9 ; Reactive depression F32.9 and Prediabetes R73.03 [place] [address] 25467- 7724 Dec, [facility] [address] [address]- 4279 Dec, [facility] [address] [place] [id number] [place] [address] 85329- 4318 Dec, DM 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 [facility] [address] [address] Dec, Bruise T14.8XXA ; Type 2 diabetes mellitus with hyperglycemia E11.65 and halfway current use of insulin Z79.4 [facility] [address] [place] [address] 65602- 6391 Oct, [facility] [address] [place] [id number] [place] [address] 12148- 3120 March, Onychomycosis B35.1 and DM 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 [facility] [address] [place] [id number] [place] [address] 49636- 3185 Jun, [facility] [address] [place] [address] 45625- 1261 Jun, [facility] [address] [place] [id number] [place] [address] 58223- 2075 Jun, COPD with acute exacerbation 491.21 [facility] [address] [address]- 0004 Apr, [facility] [address] [address]- 7063 Feb, [facility] [address] [address]- 1496 Feb, [facility] [address] [place] [id number] [place] [address] 31494- 0791 Jan, [facility] [address] [address]- 7189 Jan, [facility] [address] [place] [id number] [place] [address] [place] [address]- 6344 2015 [facility] [place] [facility] [address] [id number] [place] [address]- 1004 2015 [facility] [place] [facility] [address] [id number] [place] [address]- 5023 24 Jan, 2015 [facility] [place] [facility] [address] [id number] [place] [address]- 8576 23 Jan, 2015 [facility] [place] [facility] [address] [id number] [place] [address]- 8248 23 Jan, 2015 [facility] [place] [facility] [address] [id number] [place] [address]- 5654 23 Jan, 2015 [facility] [place] [facility] [address] [id number] [place] [address]- 0806 23 Jan, 2014 [facility] [place] [facility] [address] [id number] [place] [address]- 9689 19 Jan, 2014 [facility] [place] [facility] [address] [id number] [place] [address]- 6906 19 Jan, 2015 [facility] [place] [facility] [address] [id number] [place] [address]- 7386 18 Jan, 2015 [facility] [place] [facility] [address] [id number] [place] [address]- 9423 18 Jan, 2015 [facility] [place] [facility] [address] [id number] [place] [address]- 9055 16 Jan, 2014 [facility] [place] [facility] [address] [id number] [place] [address]- 9016 16 Jan, 2014 [facility] [place] [facility] [address] [id number] [place] [address]- 4939 16 Jan, 2014 [facility] [place] [facility] [address] [id number] [place] [address]- 8712 16 Jan, 2014 [facility] [place] [facility] [address] [id number] [place] [address]- 9371 15 Jan, 2014 [facility] [place] [facility] [address] [id number] [place] [address]- 6646 13 Jan, 2014 [facility] [place] [facility] [address] [id number] [place] [address]- 2856 13 Jan, 2014 [facility] [place] [facility] [address] [id number] [place] [address]- 0396 13 Jan, 2014 [facility] [place] [facility] [address] [id number] [place] [address]- 1263 Jan, 2014 [facility] [place] [facility] [address] [id number] [place] [address]- 8901 Jan, [facility] [place] [facility] [address] [id number] [place] [address]- 9049 Jan, [facility] [place] [facility] [address] [facility] [id number] [place] [address]- 3644 Jan, [facility] [place] [facility] [address] [id number] [place] [address]- 5570 Dec, [facility] [place] [facility] [address] [id number] [place] [address]- 3119 Dec, [facility] [place] [facility] [address] [id number] [place] [address]- 7033 Dec, [facility] [place] [facility] [address] [facility] [id number] [place] [address]- 4882 Dec, [facility] [place] [facility] [address] [id number] [place] [address]- 9709 Dec, 2014 [facility] [place] [facility] [address] [id number] [place] [address]- 0995 Dec, 2014 [facility] [place] [facility] [address] [id number] [place] [address]- 6025 Dec, 2014 [facility] [place] [facility] [address] [id number] [place] [address]- 9422 Dec, 2014 [facility] [place] [facility] [address] [facility] [id number] [place] [address]- 7017 Dec, [facility] [place] [facility] [address] [id number] [place] [address]- 0605 Dec, [facility] [place] [facility] [address] [id number] [place] [address]- 2951 Dec, [facility] [place] [facility] [address] [id number] [place] [address]- 3774 Dec, [facility] [place] [facility] [address] [id number] [place] [address]- 0143 Nov, [facility] [place] [facility] [address] [id number] [place] [address]- 2912 Nov, [facility] [place] [facility] [address] [id number] [place] [address]- 2724 Nov, [facility] [place] [facility] [address] [id number] [place] [address]- 6433 Nov, [facility] [place] [facility] [address] [id number] [place] [address]- 3420 Nov, [facility] [place] [facility] [address] [id number] [place] [address]- 6544 Nov, [facility] [place] [facility] [address] [id number] [place] [address]- 9262 Nov, [facility] [place] [facility] [address] [id number] [place] [address]- 0401 Nov, [facility] [place] [facility] [address] [id number], [place] [address]- 9310 Nov, [facility] [place] [facility] [address] [id number] [place] [address]- 5674 Nov, [facility] [place] [facility] [address] [id number] [place] [address]- 0378 Nov, [facility] [place] [facility] [address] [id number] [place] [address]- 6999 Nov, [facility] [place] [facility] [address] [id number] [place] [address]- 3319 Oct, [facility] [place] [facility] [address] [id number] [place] [address]- 4726 Oct, [facility] [place] [facility] [address] [id number] [place] 4140 Oct, [facility] [place] [facility] [address] [id number] [place] [address]- 2369 Oct, [facility] [place] [facility] [address] [id number] [place] [address]- 9077 Oct, [facility] [place] [facility] [address] [id number] [place] [address]- 5953 Oct, [facility] [place] [facility] [address] [id number] [place] [address]- 5212 Oct, [facility] [place] [facility] [address] [id number] [place] [address]- 0166 Oct, [facility] [place] [facility] [address] [id number] [place] [address]- 1458 Oct, [facility] [place] [facility] [address] [id number] [place] [address]- 3487 Oct, [facility] [place] [facility] [address] [id number] [place] [address]- 5544 16 Oct, 2014 [facility] [place] [facility] [address] [id number] [place] [address]- 8913 16 Oct, 2014 [facility] [place] [facility] [address] [id number] [place] [address]- 2498 15 Oct, 2014 [facility] [place] [facility] [address] [id number] [place] [address]- 2871 15 Oct, 2014 [facility] [place] [facility] [address] [id number] [place] [address]- 9141 08 Oct, 2014 [facility] [place] [facility] [address] [id number], [place] [address]- 2904 Sep, [facility] [place] [facility] [address] [id number] [place] [address]- 8212 Sep, [facility] [place] [facility] [address] [id number] [place] [address]- 1965 Sep, [facility] [place] [facility] [address] [id number] [place] [address]- 4946 Sep, [facility] [place] [facility] [address] [id number] [place] [address]- 4659 Aug, [facility] [place] [facility] [address] [id number] [place] [address]- 9322 Aug, [facility] [place] [facility] [address] [id number] [place] [address]- 4792 Aug, [facility] [place] [facility] [address] [id number] [place] [address]- 7250 Aug, [facility] [place] [facility] [address] [id number] [place] [address]- 1284 Aug, [facility] [place] [facility] [address] [id number] [place] [address]- 0903 Aug, [facility] [place] [facility] [address] [id number] [place] [address]- 2379 29 Jul, 2014 [facility] [place] [facility] [address] [id number], [place] [address]- 2980 29 Jul, 2013 [facility] [place] [facility] [address] [id number], [place] [address]- 4671 15 Jul, 2013 [facility] [place] [facility] [address] [id number] [place] [address]- 0498 15 Jul, 2013 [facility] [place] [facility] [address] [id number] [place] [address]- 4723 08 Jul, 2013 [facility] [place] [facility] [address] [id number] [place] [address]- 9394 08 Jul, 2013 [facility] [place] [facility] [address] [id number] [place] [address]- 4313 Jun, [facility] [place] [facility] [address] [id number] [place] [address]- 0924 Jun, [facility] [place] [facility] [address] [id number] [place] [address]- 7466 Jun, [facility] [place] [facility] [address] [id number] [place] [address]- 6864 Jun, [facility] [place] [facility] [address] [id number] [place] [address]- 2123 Jun, [facility] [place] [facility] [address] [id number] [place] [address]- 7883 Jun, [facility] [place] [facility] [address] [id number] [place] [address]- 9937 Jun, [facility] [place] [facility] [address] [id number] [place] [address]- 3679 May, [facility] [place] [facility] [address] [id number] [place] [address]- 9257 May, [facility] [place] [facility] [address] [id number] [place] [address]- 5187 May, [facility] [place] [facility] [address] [id number] [place] [address]- 2713 May, [facility] [place] [facility] [address] [id number] [place] [address]- 6258 May, [facility] [place] [facility] [address] [id number] [place] [address]- 5837 May, [facility] [place] [facility] [address] [id number] [place] [address]- 3037 May, [facility] [place] [facility] [address] [id number] [place] [address]- 5672 May, [facility] [place] [facility] [address] [id number] [place] [address]- 1007 May, [facility] [place] [facility] [address] [id number] [place] [address]- 6994 May, [facility] [place] [facility] [address] [id number] [place] [address]- 8776 May, [facility] [place] [facility] [address] [id number] [place] [address]- 0134 May, [facility] [place] [facility] [address] [id number] [place] [address]- 7111 Apr, [facility] [place] [facility] [address] [id number] [place] [address]- 8253 Apr, [facility] [place] [facility] [address] [id number] [place] [address]- 6504 Apr, [facility] [place] [facility] [address] [id number] [place] [address]- 9495 Apr, [facility] [place] [facility] [address] [id number] [place] [address]- 7102 Apr, [facility] [place] [facility] [address] [id number] [place] [address]- 7427 Apr, [facility] [place] [facility] [address] [id number] [place] [address]- 8793 Apr, [facility] [place] [facility] [address] [id number] [place] [address]- 6554 Apr, [facility] [place] [facility] [address] [id number] [place] [address]- 4757 Apr, [facility] [place] [facility] [address] [id number] [place] [address]- 5899 Apr, [facility] [place] [facility] [address] [id number] [place] [address]- 3114 March, [facility] [place] [facility] [address] [id number] [place] [address]- 5734 March, [facility] [place] [facility] [address] [id number] [place] [address]- 6658 March, [facility] [place] [facility] [address] [id number] [place] [address]- 4918 March, [facility] [place] [facility] [address] [id number] [place] [address]- 2244 March, [facility] [place] [facility] [address] [id number] [place] [address]- 6887 March, [facility] [place] [facility] [address] [id number] [place] [address]- 0079 Feb, [facility] [place] [facility] [address] [id number] [place] [address]- 8330 Feb, [facility] [place] [facility] [address] [id number] [place] [address]- 9290 Feb, [facility] [place] [facility] [address] [id number] [place] [address] Feb, [facility] [place] [facility] [address] [id number] [place] [address] Feb, [facility] [place] [facility] [address] [id number] [place] [address] Feb, [facility] [place] [facility] [address] [id number] [place] [address] Feb, [facility] [place] [facility] [address] [id number] [place] [address] Feb, [facility] [place] [facility] [address] [id number] [place] [address] Feb, [facility] [place] [facility] [address] [id number] [place] [address] Feb, [facility] [place] [facility] [address] [id number] [place] [address] Jan, [facility] [place] [facility] [address] [id number] [place] [address] Jan, [facility] [place] [facility] [address] [id number] [place] [address] Jan, [facility] [place] [facility] [address] [id number] [place] [address] Jan, [facility] [place] [facility] [address] [id number] [place] [address] Jan, [facility] [place] [facility] [address] [id number] [place] [address] Jan, [facility] [place] [facility] [address] [id number] [place] [address] Jan, [facility] [place] [facility] [address] [id number] [place] [address] 6644 Jan, [facility] [place] [facility] [address] [id number] [place] [address] Dec, [facility] [place] [facility] [address] [id number] [place] [address] Dec, [facility] [place] [facility] [address] [id number] [place] [address] 5736 Dec, [facility] [place] [facility] [address] [id number] [place] [address] 14[address] Dec, [facility] [place] [facility] [address] [id number] [place] [address] Dec, [facility] [place] [facility] [address] [id number] [place] [address] Dec, [facility] [place] [facility] [address] [id number] [place] [address] Dec, [facility] [place] [facility] [address] [id number] [place] [address] 6[address] Dec, [facility] [place] [facility] [address] [id number] [place] [address] 1836 Nov, [facility] [place] [facility] [address] [id number] [place] [address] Nov, [facility] [address] [id number] [place] [address] Nov, [facility] [place] [facility] [address] [id number] [place] [address] Nov, [facility] [place] [facility] [address] [id number] [place] [address] 34[address] Nov, [facility] [place] [facility] [address] [id number] [place] [address] Nov, [facility] [place] [facility] [address] [id number] [place] [address] Nov, [facility] [place] [facility] [address] [id number] [place] [address] Nov, [facility] [address] [id number] [place] [address] 3033 Nov, [facility] [place] [facility] [address] [id number] [place] [address]323 Nov, [facility] [place] [facility] [address] [id number] [place] [address] Nov, [facility] [place] [facility] [address] [id number] [place] [address] Oct, [facility] [place] [facility] [address] [id number] [place] [address] Oct, [facility] [place] [facility] [address] [id number], [place] [address] Oct, [facility] [place] [facility] [address] [id number] [place] [address] Oct, [facility] [place] [facility] [address] [id number] [place] [address]- [address] Sep, [facility] [place] [facility] [address] [id number] [place] [address]- [address] Sep, [facility] [place] [facility] [address] [id number] [place] [address]- [address]31 Sep, [facility] [place] [facility] [address] [id number] [place] [address] Sep, [facility] [place] [facility] [address] [id number] [place] [address]15 Aug, [facility] [place] [facility] [address] [id number] [place] [address] Aug, [facility] [place] [facility] [address] [id number] [place] [address] Aug, [facility] [place] [facility] [address] [id number] [place] [address]- [address] Aug, [facility] [place] [facility] [address] [id number] [place] [address] Aug, [facility] [place] [facility] [address] [id number] [place] [address] 67[address] Aug, [facility] [place] [facility] [address] [id number] [place] [address] Aug, [facility] [place] [facility] [address] [id number] [place] [address] 82[address] Aug, [facility] [place] [facility] [address] [id number] [place] [address] Jul, [facility] [place] [facility] [address] [id number] [place] [address] 27 Jul, 2013 [facility] [place] [facility] [address] [id number] [place] [address]48 26 Jul, 2013 [facility] [place] [facility] [address] [id number] [place] [address] 2546 24 Jul, 2013 [facility] [place] [facility] [address] [id number] [place] [address]44 24 Jul, 2013 [facility] [place] [facility] [address] [id number] [place] [address] 23 Jul, 2012 [facility] [place] [facility] [address] [id number] [place] [address] 19 Jul, 2012 [facility] [place] [facility] [address] [id number] [place] [address] 8176 18 Jul, 2012 [facility] [place] [facility] [address] [id number] [place] [address]326 17 Jul, 2012 [facility] [place] [facility] [address] [id number] [place] [address] 4[address] 16 Jul, 2012 [facility] [place] [facility] [address] [id number] [place] [address] 1468 13 Jul, 2012 [facility] [place] [facility] [address] [id number] [place] [address]- 8584 13 Jul, 2012 [facility] [place] [facility] [address] [id number] [place] [address]- 5474 12 Jul, 2012 [facility] [place] [facility] [address] [id number] [place] [address]- 0841 11 Jul, 2012 [facility] [place] [facility] [address] [id number] [place] [address]- 3693 04 Jul, 2013 [facility] [place] [facility] [address] [id number] [place] [address] 9270 30 Jun, 2013 [facility] [place] [facility] [address] [id number] [place] [address] 48[address] Jun, [facility] [place] [facility] [address] [id number], [place] [address] Jun, [facility] [place] [facility] [address] [id number] [place] [address]- 4166 May, [facility] [place] [facility] [address] [id number] [place] [address]- 8199 May, [facility] [place] [facility] [address] [id number] [place] [address]- 6693 May, [facility] [place] [facility] [address] [id number] [place] [address]- 8756 May, [facility] [address] [id number] [place] [address] 7922 Apr, [facility] [address] [id number] [place] [address]- 4950 Apr, [facility] [address] [id number] [place] [address]- 8465 Apr, [facility] [address] [id number] [place] [address]- 5369 Apr, [facility] [address] [id number] [place] [address]- 6278 March, [facility] [address] [id number] [place] [address]- 5384 March, [facility] [address] [id number] [place] [address]- 4262 March, [facility] [address] [id number] [place] [address]- 8133 Feb, [facility] [address] [id number] [place] [address]- 2034 Feb, [facility] [address] [id number] [place] [address]- 3224 Jan, [facility] [address] [id number] [place] [address]- 3021 Jan, [facility] [address] [id number] [place] [address]- 5026 Jan, [facility] [place] [facility] [address] [id number] [place] [address]- 2711 05 Jan, 2013 [facility] [place] [facility] [address] [id number] [place] [address]- 8159 Jan, [facility] [address] [id number] [place] [address]- 3635 Dec, [facility] [place] [facility] [address] [id number] [place] [address]- 2276 Dec, [facility] [place] [facility] [address] [id number] [place] [address]- 4616 Dec, [facility] [address] [id number] [place] [address] 2546 Dec, [facility] [place] [facility] [address] [id number] [place] [address] 254 Dec, [facility] [address] [id number] [place] [address]- 9647 Dec, [facility] [address] [id number] [place] [address]- 4256 Dec, [facility] [address] [id number] [place] [address]- 0472 Dec, [facility] [address] [id number] [place] [address]- 1511 Nov, [facility] [address] [id number] [place] [address]- [address] Nov, [facility] [address] [id number] [place] [address]- 2753 Nov, [facility] [address] [id number], [place] [address]- 9075 Nov, [facility] [place] [facility] [address] [id number], [place] [address]- 5775 Nov, [facility] [place] [facility] [address] [id number] [place] [address]- 1663 Nov, [facility] [place] [facility] [address] [id number] [place] [address]- 9414 Nov, [facility] [place] [facility] [address] [id number] [place] [address]- 6811 Oct, [facility] [place] [facility] [address] [id number] [place] [address]- 1334 Oct, [facility] [place] [facility] [address] [id number] [place] [address]- 5806 Oct, [facility] [place] [facility] [address] [id number] [place] [address]- 5666 Oct, [facility] [place] [facility] [address] [id number] [place] [address]- 1446 Oct, [facility] [place] [facility] [address] [id number] [place] [address] 2546 Oct, [facility] [place] [facility] [address] [id number] [place] [address]- 4240 Oct, [facility] [place] [facility] [address] [id number] [place] [address]- 2016 Oct, [facility] [place] [facility] [address] [id number] [place] [address]- 8028 Sep, [facility] [place] [facility] [address] [id number] [place] [address]- 1135 Sep, [facility] [place] [facility] [address] [id number] [place] [address]- 5384 Sep, [facility] [place] [facility] [address] [id number] [place] [address]- 4982 Sep, [facility] [place] [facility] [address] [id number] [place] [address] 2546 Sep, [facility] [place] [facility] [address] [id number] [place] [address]- 2549 Sep, [facility] [place] [facility] [address] [id number] [place] [address]- 2981 Sep, [facility] [place] [facility] [address] [id number] [place] [address]- 2547 Sep, [facility] [place] [facility] [address] [id number] [place] [address]- 7872 Sep, [facility] [place] [facility] [address] [id number] [place] [address]- 8713 Sep, [facility] [place] [facility] [address] [id number] [place] [address]- 8782 Sep, [facility] [place] [facility] [address] [id number] [place] [address]- 8084 Sep, [facility] [place] [facility] [address] [id number] [place] [address]- 7141 Sep, [facility] [place] [facility] [address] [id number] [place] [address]- 2595 Sep, [facility] [place] [facility] [address] [id number] [place] [address]- 3065 Sep, [facility] [place] [facility] [address] [id number] [place] [address]- 2318 Sep, [facility] [place] [facility] [address] [id number] [place] [address]- 0143 Sep, [facility] [place] [facility] [address] [id number] [place] [address]- 0389 Sep, [facility] [place] [facility] [address] [id number] [place] [address]- 9844 Sep, [facility] [place] [facility] [address] [id number] [place] [address]- 8504 Sep, [facility] [place] [facility] [address] [id number], [place] [address]- 7574 Aug, [facility] [place] [facility] [address] [id number] [place] [address]- 6432 Aug, [facility] [place] [facility] [address] [id number] [place] [address]- 5078 Aug, [facility] [place] [facility] [address] [id number] [place] [address]- 4180 Aug, [facility] [place] [facility] [address] [id number], [place] [address]- 7195 27 Aug, 2012 [facility] [place] [facility] [address] [id number] [place] [address]- 6095 Aug, [facility] [place] [facility] [address] [id number] [place] [address]- 5405 18 Aug, 2012 [facility] [place] [facility] [address] [id number] [place] [address]- 9243 17 Aug, 2012 [facility] [place] [facility] [address] [id number] [place] [address] 16 Aug, 2012 [facility] [place] [facility] [address] [id number] [place] [address]- 0845 16 Aug, 2012 [facility] [place] [facility] [address] [id number] [place] [address]- 7414 15 Aug, 2012 [facility] [place] [facility] [address] [id number] [place] [address]- 5023 Aug, [facility] [place] [facility] [address] [id number] [place] [address]- 0719 Aug, [facility] [place] [facility] [address] [id number] [place] [address]- 1682 05 Aug, 2012 [facility] [place] [facility] [address] [id number] [place] [address]- 7200 Aug, [facility] [place] [facility] [address] [id number], [place] [address]- 6737 14 Jul, 2012 [facility] [place] [facility] [address] [id number] [place] [address]- 7860 10 Jul, 2012 [facility] [place] [facility] [address] [id number] [place] [address]- 0663 31 Jun, 2012 [facility] [place] [facility] [address] [id number] [place] [address]- 5402 Jun, [facility] [place] [facility] [address] [id number] [place] [address]- 2862 May, [facility] [place] [facility] [address] [id number] [place] [address]- 9156 May, [facility] [address] [id number] [place] [address]- 2471 24 May, 2012 [facility] [address] [id number] [place] [address]- 7686 May, [facility] [address] [id number] [place] [address]- 4638 May, [facility] [address] [id number] [place] [address]- 5769 May, [facility] [address] [id number] [place] [address]- 7116 Apr, [facility] [address] [id number] [place] [address]- 8424 Apr, [facility] [address] [id number] [place] [address]- 6704 March, [facility] [address] [id number] [place] [address]- 2806 March, [facility] [address] [id number] [place] [address]- 8549 March, [facility] [address] [id number] [place] [address]- 5518 March, [facility] [address] [id number] [place] [address]- 7409 March, [facility] [address] [id number] [place] [address]- 2408 March, [facility] [place] [facility] [address] [id number] [place] [address]- 6632 30 Feb, 2012 [facility] [address] [id number] [place] [address]- 7270 Feb, [facility] [address] [id number] [place] [address]- 2162 Feb, [facility] [place] [facility] [address] [id number] [place] [address]- 4408 Feb, [facility] [place] [facility] [address] [id number] [place] [address]- 1804 Feb, [facility] [place] [facility] [address] [id number] [place] [address]- 8610 Feb, [facility] [place] [facility] [address] [id number] [place] [address]- 2280 Feb, [facility] [place] [facility] [address] [id number] [place] [address]- 1245 Feb, [facility] [place] [facility] [address] [id number] [place] [address]- 4649 Feb, [facility] [place] [facility] [address] [id number] [place] [address]- 0062 30 Jan, 2012 [facility] [place] [facility] [address] [id number] [place] [address]- 8074 Jan, [facility] [place] [facility] [address] [id number] [place] [address]- 7981 Jan, [facility] [place] [facility] [address] [id number] [place] [address]- 8557 Jan, [facility] [place] [facility] [address] [id number] [place] [address]- 4947 Jan, [facility] [place] [facility] [address] [id number] [place] [address]- 8997 Jan, [facility] [place] [facility] [address] [id number] [place] [address]- 8856 14 Jan, 2012 [facility] [place] [facility] [address] [id number] [place] [address]- 7803 Jan, [facility] [place] [facility] [address] [id number] [place] [address]45 Jan, [facility] [place] [facility] [address] [id number] [place] [address]- 5122 08 Jan, 2012 [facility] [address] [id number] [place] [address]- 9647 07 Jan, 2012 [facility] [place] [facility] [address] [id number] [place] [address]- 1846 06 Jan, 2012 [facility] [place] [facility] [address] [id number] [place] [address]- 8096 Jan, [facility] [place] [facility] [address] [id number] [place] [address]- 6697 Jan, [facility] [place] [facility] [address] [id number] [place] [address]- 8218 28 Dec, 2011 [facility] [place] [facility] [address] [id number] [place] [address]- 6201 27 Dec, 2011 [facility] [address] [id number] [place] [address]- 4990 Dec, [facility] [place] [facility] [address] [id number] [place] [address]- 8941 23 Dec, 2011 [facility] [place] [facility] [address] [id number] [place] [address]- 1986 16 Dec, 2011 [facility] [address] [id number] [place] [address]- 3137 Dec, [facility] [place] [facility] [address] [id number] [place] [address]- 2958 Dec, [facility] [place] [facility] [address] [id number] [place] [address]- 8851 Dec, [facility] [place] [facility] [address] [id number] [place] [address]- 4106 Dec, [facility] [place] [facility] [address] [id number] [place] [address]- 0946 Nov, [facility] [place] [facility] [address] [id number] [place] [address]- 9719 Nov, [facility] [address] [id number] [place] [address]- 2730 Nov, [facility] [place] [facility] [address] [id number] [place] [address]- 3048 Nov, [facility] [place] [facility] [address] [id number] [place] [address]- 3899 Oct, [facility] [place] [facility] [address] [id number] [place] [address]- 0777 Oct, [facility] [place] [facility] [address] [id number] [place] [address]- 9059 Oct, [facility] [place] [facility] [address] [id number] [place] [address]- 0223 Oct, [facility] [place] [facility] [address] [id number] [place] [address]- 9998 Oct, [facility] [place] [facility] [address] [id number] [place] [address]- 5806 Oct, [facility] [place] [facility] [address] [id number] [place] [address]- 3042 Oct, [facility] [place] [facility] [address] [id number] [place] [address]- 1188 Sep, [facility] [place] [facility] [address] [id number] [place] [address]- 8958 Sep, [facility] [place] [facility] [address] [id number], [place] [address]- 1245 Sep, [facility] [place] [facility] [address] [id number] [place] [address]- 7441 Sep, [facility] [place] [facility] [address] [id number], [place] [address]- 2776 Sep, [facility] [place] [facility] [address] [id number] [place] [address]- 4860 Sep, [facility] [place] [facility] [address] [id number] [place] [address]- 1179 Sep, [facility] [place] [facility] [address] [id number] [place] [address]- 8683 Sep, [facility] [place] [facility] [address] [id number] [place] [address]87 Sep, [facility] [place] [facility] [address] [id number] [place] [address]- 5019 Aug, [facility] [place] [facility] [address] [id number] [place] [address]- 5576 Aug, [facility] [place] [facility] [address] [id number] [place] [address], [place] [address]- 8677 Aug, [facility] [place] [facility] [address] [id number] [place] [address]- 0573 May, [facility] [place] [facility] [address] [id number] [place] [address]- 7843 Nov, [facility] [place] [facility] [address] [id number] [place] [address]- 2246 Oct, [facility] [place] [facility] [address] [id number] [place] [address]- 5706 Oct, [facility] [place] [facility] [address] [facility] [id number] [place] [address]- 3939 Oct, [facility] [place] [facility] [address] [id number] [place] [address]- 0810 Oct, [facility] [place] [facility] [address] [id number] [place] [address]- 254 Oct, [facility] [place] [facility] [address] [id number] [place] [address]- 7136 03 Sep, 2010 [facility] [place] [facility] [address] [facility] [id number] [place] [address]- 5033 02 Sep, 2010 [facility] [place] [facility] [address] [facility] [id number] [place] 1612 14 Jul, 2010 [facility] [place] [facility] [address] [facility] [id number], [place] [address]- 2984 Oct, [facility] [id number] 5832 Oct, [facility] [address] [facility] [id number] 7201 Oct, [facility] [id number] 1789 Oct, [facility] [address] [facility] [id number], [place] [address]- 9582 Sep, [facility] [id number] [place] [address]- 5744 Sep, [facility] [id number], [place] [address]- 5102 Sep, [facility] [id number], [place] [address]- 6472 Sep, [facility] [id number], [place] [address]- 3977 Sep, [facility] [id number], [place] [address]- 8039 Jul, [facility] [id number], [place] [address]- 8743 Apr, [facility] [address] [id number], [place] [address]- 0499 Dec, IMMUNIZATIONS No Known Immunizations SOCIAL HISTORY [...]
--- OUTSIDE RECORDS SUMMARY | 2018-11-26 16:06 | XMS REPORT ---
Author Author KING FISHMAN Organization [facility] Address [address] [place] [address] Care Team Providers Care Insole Department Worker Name Role Phone KNIG FISHMAN Unavailable PROBLEMS Type Condition ICD9-CM Code [id number] Code Onset Dates Condition Status SNOMED Code Problem Acquired hypothyroidism E03.9 Active 642666869 Problem Lumbago with sciatica, left side M54.42 Active 946453773 Problem Gastroesophageal reflux disease, esophagitis presence not specified K21.9 Active 921226831 Problem Prediabetes R73.03 Active 569610475 Problem Reactive depression F32.9 Active 89339292 Problem Mixed hyperlipidemia E78.2 Active 147719680 Problem Essential hypertension I10 Active 90504353 Problem Seizures R56.9 Active 50783849 Problem Chronic obstructive pulmonary disease, unspecified COPD type J44.9 Active 08731468 Problem Other chronic pain G89.29 Active 18243002 Problem Lumbago with sciatica, right side M54.41 Active [id number] Problem Pain in right ankle and joints of right foot M25.571 Active 90498090607268 Problem Cigarette nicotine dependence without complication F17.210 Active 05147627 ALLERGIES No Information ENCOUNTERS Encounter Location Date Diagnosis [place] [id number] [place] [address] 92456- 5627 Jul, [place] [address] [place] [id number] [place] [address] 60160- 8667 Jun, Gastroenteritis K52.9 and Abnormal RBC indices R71.8 [place] [address] [place] [id number] [place] [address] 18871- 4754 Jun, [facility] [address] [id number] [place] [address] 36502- 7292 Jun, Chest congestion R09.89 and Seizures R56.9 [facility] [address] [facility] [id number], [place] [address] 2546 May, Pain in thoracic spine M54.6 [facility] [address] [facility] [id number] [place] [address] 89137 2546 May, [facility] [address] [place] [id number] [place] [address] 36855 2546 May, [facility] [address] [facility] [id number] [place] [address] 70222 2546 May, [facility] [address] [facility] [id number] [place] [address] 72122 2546 May, Acute non-recurrent frontal sinusitis J01.10 and Dermatitis L30.9 [facility] [address] [facility] [id number] [place] [address] 13387 2546 May, [facility] [address] [facility] [id number] [place] [address] 75245 2543 May, Pain in thoracic spine M54.6 [facility] [address] [facility] [id number] [place] [address] 02634 2546 May, [facility] [address] [facility] [id number] [place] [address] 86382 2546 May, Acute nasopharyngitis J00 [facility] [address] [facility] [id number], [place] [address] 2546 May, [facility] [address] [facility] [id number] [place] [address] 47669 2546 May, [facility] [address] [facility] [id number], [place] [address] 2546 Apr, [facility] [address] [facility] [id number] [place] [address] 42205 2546 Apr, [facility] [address] [address] 2542 Apr, [facility] [address] [place] [id number] [place] [address] 31681- 7742 Apr, [place] [address] [place] [id number] [place] [address] 45216- 9617 Apr, Pain in right ankle and joints of right foot M25.571 [place] [address] [place] [id number] [place] [address] 09320- 6210 Apr, [place] [address] 37487- 2781 Apr, Bronchitis J40 ; Pain in right ankle and joints of right foot M25.571 ; Other chronic pain G89.29 ; Prediabetes R73.03 ; Chronic obstructive pulmonary disease, unspecified COPD type J44.9 and Cigarette nicotine dependence without complication F17.210 [facility] [address] [place] [id number] [place] [address] 82001 -4068 Apr, Seasonal allergic rhinitis, unspecified trigger J30.2 [place] [address] [place] [id number] [place] [address] 72644- 5361 Apr, Onychomycosis B35.1 ; Onychocryptosis L60.0 and DM 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 [place] [address] [place] [id number] [place] [address] 22548- 1267 Apr, Reactive depression F32.9 ; Thoracic myofascial strain, initial encounter S29.019A and Leg cramps R25.2 [place] [address] [place] [id number] [place] [address] 24177- 7555 March, [place] [address] [place] [id number] [place] [address] 73253- 8900 March, Type 2 diabetes mellitus with hyperglycemia E11.65 [place] [address] [place] [id number] [place] [address] 25777- 9214 March, Reactive depression F32.[address] 97816- 4027 08 May, 2018 Pain in thoracic spine M54.6 and Other chronic pain G89.29 [place] [address] 40123- 5718 Feb, [place] [address] 23570- 4052 Jan, Reactive depression F32.9 ; Essential hypertension I10 ; Gastroesophageal reflux disease, esophagitis presence not specified K21.9 ; Lumbago with sciatica, left side M54.42 and Lumbago with sciatica, right side M54.41 [place] [address] 79557- 0068 Jan, Reactive depression F32.9 and Pharyngoesophageal dysphagia R13.14 [place] [address] 31634- 8332 Jan, [place] [address] 82778- 5557 Jan, Encounter for immunization Z23 [address] 49207- 1255 Jan, Onychomycosis B35.1 and DM 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 [place] [address] 74968- 6655 Jan, [place] [address] 10396- 7301 Jan, Prediabetes R73.03 [place] [address] 61828- 5908 Dec, [place] [address] 95318- 2037 Dec, Essential hypertension I10 ; Mixed hyperlipidemia E78.2 ; Acquired hypothyroidism E03.9 ; Reactive depression F32.9 and Prediabetes R73.03 [place] [address] 13019- 8959 Dec, [facility] [address] [address]- 9053 Dec, [facility] [address] [place] [id number] [place] [address] 95657- 8836 Dec, DM 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 [facility] [address], [place] [address] Dec, Bruise T14.8XXA ; Type 2 diabetes mellitus with hyperglycemia E11.65 and FDC current use of insulin Z79.4 [facility] [address] [place] [address] 26624- 3929 Oct, [facility] [address] [place] [id number] [place] [address] 24481- 5795 March, Onychomycosis B35.1 and DM 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 [facility] [address] [place] [id number] [place] [address] 87910- 2742 Jun, [facility] [address] [place] [address] 19830- 4397 Jun, [facility] [address] [place] [id number] [place] [address] 71186- 2660 Jun, COPD with acute exacerbation 491.21 [facility] [address], [place] [address]- 6483 Apr, [facility] [address], [place] [address]- 6248 Feb, [facility] [address], [place] [address]- 3386 Feb, [facility] [address] [place] [id number] [place] [address] 25570- 9779 Jan, [facility] [address], [place] [address]- 0203 Jan, [facility] [address] [place] [id number] [place] [address] [place] [address]- 5660 2015 [facility] [place] [facility] [address] [id number] [place] [address]- 5901 2015 [facility] [place] [facility] [address] [id number] [place] [address]- 5273 24 Jan, 2015 [facility] [place] [facility] [address] [id number] [place] [address]- 6878 23 Jan, 2015 [facility] [place] [facility] [address] [id number] [place] [address]- 0263 23 Jan, 2015 [facility] [place] [facility] [address] [id number] [place] [address]- 1389 23 Jan, 2015 [facility] [place] [facility] [address] [id number] [place] [address]- 0226 23 Jan, 2014 [facility] [place] [facility] [address] [id number] [place] [address]- 6426 19 Jan, 2014 [facility] [place] [facility] [address] [id number] [place] [address]- 5017 19 Jan, 2015 [facility] [place] [facility] [address] [id number] [place] [address]- 8277 18 Jan, 2015 [facility] [place] [facility] [address] [id number] [place] [address]- 2920 18 Jan, 2015 [facility] [place] [facility] [address] [id number] [place] [address]- 4380 16 Jan, 2014 [facility] [place] [facility] [address] [id number] [place] [address]- 4865 16 Jan, 2014 [facility] [place] [facility] [address] [id number] [place] [address]- 2963 16 Jan, 2014 [facility] [place] [facility] [address] [id number] [place] [address]- 3178 16 Jan, 2014 [facility] [place] [facility] [address] [id number] [place] [address]- 2055 15 Jan, 2014 [facility] [place] [facility] [address] [id number] [place] [address]- 1771 13 Jan, 2014 [facility] [place] [facility] [address] [id number] [place] [address]- 6146 13 Jan, 2014 [facility] [place] [facility] [address] [id number] [place] [address]- 2106 13 Jan, 2014 [facility] [place] [facility] [address] [id number] [place] [address]- 1306 Jan, 2014 [facility] [place] [facility] [address] [id number] [place] [address]- 6531 Jan, [facility] [place] [facility] [address] [id number] [place] [address]- 8515 Jan, [facility] [place] [facility] [address] [facility] [id number] [place] [address]- 1202 Jan, [facility] [place] [facility] [address] [id number] [place] [address]- 7852 Dec, [facility] [place] [facility] [address] [id number] [place] [address]- 3074 Dec, [facility] [place] [facility] [address] [id number] [place] [address]- 6366 Dec, [facility] [place] [facility] [address] [facility] [id number] [place] [address]- 8177 Dec, [facility] [place] [facility] [address] [id number] [place] [address]- 7764 Dec, 2014 [facility] [place] [facility] [address] [id number] [place] [address]- 3204 Dec, 2014 [facility] [place] [facility] [address] [id number] [place] [address]- 7813 Dec, 2014 [facility] [place] [facility] [address] [id number] [place] [address]- 3002 Dec, 2014 [facility] [place] [facility] [address] [facility] [id number] [place] [address]- 2093 Dec, [facility] [place] [facility] [address] [id number] [place] [address]- 1138 Dec, [facility] [place] [facility] [address] [id number] [place] [address]- 0166 Dec, [facility] [place] [facility] [address] [id number] [place] [address]- 6506 Dec, [facility] [place] [facility] [address] [id number] [place] [address]- 2312 Nov, [facility] [place] [facility] [address] [id number] [place] [address]- 9896 Nov, [facility] [place] [facility] [address] [id number] [place] [address]- 0860 Nov, [facility] [place] [facility] [address] [id number] [place] [address]- 0184 Nov, [facility] [place] [facility] [address] [id number] [place] [address]- 4169 Nov, [facility] [place] [facility] [address] [id number] [place] [address]- 0933 Nov, [facility] [place] [facility] [address] [id number] [place] [address]- 0841 Nov, [facility] [place] [facility] [address] [id number] [place] [address]- 2953 Nov, [facility] [place] [facility] [address] [id number], [place] [address]- 8213 Nov, [facility] [place] [facility] [address] [id number] [place] [address]- 2106 Nov, [facility] [place] [facility] [address] [id number] [place] [address]- 7855 Nov, [facility] [place] [facility] [address] [id number] [place] [address]- 9578 Nov, [facility] [place] [facility] [address] [id number] [place] [address]- 2007 Oct, [facility] [place] [facility] [address] [id number] [place] [address]- 2914 Oct, [facility] [place] [facility] [address] [id number] [place] 0566 Oct, [facility] [place] [facility] [address] [id number] [place] [address]- 9182 Oct, [facility] [place] [facility] [address] [id number] [place] [address]- 1898 Oct, [facility] [place] [facility] [address] [id number] [place] [address]- 4054 Oct, [facility] [place] [facility] [address] [id number] [place] [address]- 3435 Oct, [facility] [place] [facility] [address] [id number] [place] [address]- 3034 Oct, [facility] [place] [facility] [address] [id number] [place] [address]- 7787 Oct, [facility] [place] [facility] [address] [id number] [place] [address]- 5033 Oct, [facility] [place] [facility] [address] [id number] [place] [address]- 1441 16 Oct, 2014 [facility] [place] [facility] [address] [id number] [place] [address]- 5199 16 Oct, 2014 [facility] [place] [facility] [address] [id number] [place] [address]- 5650 15 Oct, 2014 [facility] [place] [facility] [address] [id number] [place] [address]- 6409 15 Oct, 2014 [facility] [place] [facility] [address] [id number] [place] [address]- 5194 08 Oct, 2014 [facility] [place] [facility] [address] [id number], [place] [address]- 2983 Sep, [facility] [place] [facility] [address] [id number] [place] [address]- 3104 Sep, [facility] [place] [facility] [address] [id number] [place] [address]- 9936 Sep, [facility] [place] [facility] [address] [id number] [place] [address]- 1711 Sep, [facility] [place] [facility] [address] [id number] [place] [address]- 4427 Aug, [facility] [place] [facility] [address] [id number] [place] [address]- 5248 Aug, [facility] [place] [facility] [address] [id number] [place] [address]- 3433 Aug, [facility] [place] [facility] [address] [id number] [place] [address]- 5939 Aug, [facility] [place] [facility] [address] [id number] [place] [address]- 4429 Aug, [facility] [place] [facility] [address] [id number] [place] [address]- 7845 Aug, [facility] [place] [facility] [address] [id number] [place] [address]- 9577 29 Jul, 2014 [facility] [place] [facility] [address] [id number], [place] [address]- 0311 29 Jul, 2013 [facility] [place] [facility] [address] [id number], [place] [address]- 9748 15 Jul, 2013 [facility] [place] [facility] [address] [id number] [place] [address]- 2311 15 Jul, 2013 [facility] [place] [facility] [address] [id number] [place] [address]- 2098 08 Jul, 2013 [facility] [place] [facility] [address] [id number] [place] [address]- 3591 08 Jul, 2013 [facility] [place] [facility] [address] [id number] [place] [address]- 8174 Jun, [facility] [place] [facility] [address] [id number] [place] [address]- 8171 Jun, [facility] [place] [facility] [address] [id number] [place] [address]- 4006 Jun, [facility] [place] [facility] [address] [id number] [place] [address]- 2699 Jun, [facility] [place] [facility] [address] [id number] [place] [address]- 9901 Jun, [facility] [place] [facility] [address] [id number] [place] [address]- 6472 Jun, [facility] [place] [facility] [address] [id number] [place] [address]- 3651 Jun, [facility] [place] [facility] [address] [id number] [place] [address]- 2857 May, [facility] [place] [facility] [address] [id number] [place] [address]- 4603 May, [facility] [place] [facility] [address] [id number] [place] [address]- 5987 May, [facility] [place] [facility] [address] [id number] [place] [address]- 2137 May, [facility] [place] [facility] [address] [id number] [place] [address]- 2203 May, [facility] [place] [facility] [address] [id number] [place] [address]- 6004 May, [facility] [place] [facility] [address] [id number] [place] [address]- 7984 May, [facility] [place] [facility] [address] [id number] [place] [address]- 3694 May, [facility] [place] [facility] [address] [id number] [place] [address]- 7309 May, [facility] [place] [facility] [address] [id number] [place] [address]- 3430 May, [facility] [place] [facility] [address] [id number] [place] [address]- 2009 May, [facility] [place] [facility] [address] [id number] [place] [address]- 6696 May, [facility] [place] [facility] [address] [id number] [place] [address]- 8641 Apr, [facility] [place] [facility] [address] [id number] [place] [address]- 9828 Apr, [facility] [place] [facility] [address] [id number] [place] [address]- 4461 Apr, [facility] [place] [facility] [address] [id number] [place] [address]- 5377 Apr, [facility] [place] [facility] [address] [id number] [place] [address]- 2637 Apr, [facility] [place] [facility] [address] [id number] [place] [address]- 1017 Apr, [facility] [place] [facility] [address] [id number] [place] [address]- 9133 Apr, [facility] [place] [facility] [address] [id number] [place] [address]- 1975 Apr, [facility] [place] [facility] [address] [id number] [place] [address]- 2243 Apr, [facility] [place] [facility] [address] [id number] [place] [address]- 2886 Apr, [facility] [place] [facility] [address] [id number] [place] [address]- 2108 March, [facility] [place] [facility] [address] [id number] [place] [address]- 0723 March, [facility] [place] [facility] [address] [id number] [place] [address]- 4584 March, [facility] [place] [facility] [address] [id number] [place] [address]- 7227 March, [facility] [place] [facility] [address] [id number] [place] [address]- 2853 March, [facility] [place] [facility] [address] [id number] [place] [address]- 8246 March, [facility] [place] [facility] [address] [id number] [place] [address]- 5321 Feb, [facility] [place] [facility] [address] [id number] [place] [address]- 9423 Feb, [facility] [place] [facility] [address] [id number] [place] [address]- 8031 Feb, [facility] [place] [facility] [address] [id number] [place] [address]- 6218 Feb, [facility] [place] [facility] [address] [id number] [place] [address]- 3224 Feb, [facility] [place] [facility] [address] [id number] [place] [address]- 0581 Feb, [facility] [place] [facility] [address] [id number] [place] [address]- 1022 Feb, [facility] [place] [facility] [address] [id number] [place] [address]- 1033 Feb, [facility] [place] [facility] [address] [id number] [place] [address]- 8278 Feb, [facility] [place] [facility] [address] [id number] [place] [address]- 7944 Feb, [facility] [place] [facility] [address] [id number] [place] [address]- 1741 Jan, [facility] [place] [facility] [address] [id number] [place] [address]- 1232 Jan, [facility] [place] [facility] [address] [id number] [place] [address]- 7000 Jan, [facility] [place] [facility] [address] [id number] [place] [address] Jan, [facility] [place] [facility] [address] [id number] [place] [address] Jan, [facility] [place] [facility] [address] [id number] [place] [address] Jan, [facility] [place] [facility] [address] [id number] [place] [address] Jan, [facility] [place] [facility] [address] [id number] [place] [address] Jan, [facility] [place] [facility] [address] [id number] [place] [address] Dec, [facility] [place] [facility] [address] [id number] [place] [address] Dec, [facility] [place] [facility] [address] [id number] [place] [address] Dec, [facility] [place] [facility] [address] [id number] [place] [address] Dec, [facility] [place] [facility] [address] [id number] [place] [address] Dec, [facility] [place] [facility] [address] [id number] [place] [address] Dec, [facility] [place] [facility] [address] [id number] [place] [address] Dec, [facility] [place] [facility] [address] [id number] [place] [address] Dec, [facility] [place] [facility] [address] [id number] [place] [address] Nov, [facility] [place] [facility] [address] [id number] [place] [address] Nov, [facility] [address] [id number] [place] [address] Nov, [facility] [place] [facility] [address] [id number] [place] [address] 37[address] Nov, [facility] [place] [facility] [address] [id number] [place] [address] Nov, [facility] [place] [facility] [address] [id number] [place] [address] Nov, [facility] [place] [facility] [address] [id number] [place] [address] Nov, [facility] [place] [facility] [address] [id number] [place] [address] Nov, [facility] [address] [id number] [place] [address] Nov, [facility] [place] [facility] [address] [id number] [place] [address] Nov, [facility] [place] [facility] [address] [id number] [place] [address] Nov, [facility] [place] [facility] [address] [id number] [place] [address] Oct, [facility] [place] [facility] [address] [id number] [place] [address] Oct, [facility] [place] [facility] [address] [id number], [place] [address] Oct, [facility] [place] [facility] [address] [id number] [place] [address] Oct, [facility] [place] [facility] [address] [id number] [place] [address] Sep, [facility] [place] [facility] [address] [id number] [place] [address] Sep, [facility] [place] [facility] [address] [id number] [place] [address] Sep, [facility] [place] [facility] [address] [id number] [place] [address] Sep, [facility] [place] [facility] [address] [id number] [place] [address] Aug, [facility] [place] [facility] [address] [id number] [place] [address] Aug, [facility] [place] [facility] [address] [id number] [place] [address] Aug, [facility] [place] [facility] [address] [id number] [place] [address] Aug, [facility] [place] [facility] [address] [id number] [place] [address] Aug, [facility] [place] [facility] [address] [id number] [place] [address] Aug, [facility] [place] [facility] [address] [id number] [place] [address] Aug, [facility] [place] [facility] [address] [id number] [place] [address] Aug, [facility] [place] [facility] [address] [id number] [place] [address] Jul, [facility] [place] [facility] [address] [id number] [place] [address] 27 Jul, 2013 [facility] [place] [facility] [address] [id number] [place] [address]40 26 Jul, 2013 [facility] [place] [facility] [address] [id number] [place] [address] 2546 24 Jul, 2013 [facility] [place] [facility] [address] [id number] [place] [address]44 24 Jul, 2013 [facility] [place] [facility] [address] [id number] [place] [address]- [address] 23 Jul, 2012 [facility] [place] [facility] [address] [id number] [place] [address]- [address] 19 Jul, 2012 [facility] [place] [facility] [address] [id number] [place] [address]- [address] 18 Jul, 2012 [facility] [place] [facility] [address] [id number] [place] [address]- [address] 17 Jul, 2012 [facility] [place] [facility] [address] [id number] [place] [place] [address] 16 Jul, 2012 [facility] [place] [facility] [address] [id number] [place] [address] 8529 13 Jul, 2012 [facility] [place] [facility] [address] [id number] [place] [address] 7[address] 13 Jul, 2012 [facility] [place] [facility] [address] [id number] [place] [address] 3689 12 Jul, 2012 [facility] [place] [facility] [address] [id number] [place] [address]- 4747 11 Jul, 2012 [facility] [place] [facility] [address] [id number] [place] [address]- 2657 04 Jul, 2013 [facility] [place] [facility] [address] [id number] [place] [address] 7948 30 Jun, 2013 [facility] [place] [facility] [address] [id number] [place] [address] 3118 Jun, [facility] [place] [facility] [address] [id number], [place] [address] Jun, [facility] [place] [facility] [address] [id number] [place] [address] 2756 May, [facility] [place] [facility] [address] [id number] [place] [address] 8012 May, [facility] [place] [facility] [address] [id number] [place] [address]- 7246 May, [facility] [place] [facility] [address] [id number] [place] [address]- 6948 May, [facility] [address] [id number] [place] [address]- 7414 Apr, [facility] [address] [id number] [place] [address]- 2119 Apr, [facility] [address] [id number] [place] [address]- 5318 Apr, [facility] [address] [id number] [place] [address]- 4252 Apr, [facility] [address] [id number] [place] [address]- 9042 March, [facility] [address] [id number] [place] [address]- 9897 March, [facility] [address] [id number] [place] [address]- 1526 March, [facility] [address] [id number] [place] [address]- 3278 Feb, [facility] [address] [id number] [place] [address]- 5295 Feb, [facility] [address] [id number] [place] [address]- 0626 Jan, [facility] [address] [id number] [place] [address] Jan, [facility] [address] [id number] [place] [address]- 5557 Jan, [facility] [place] [facility] [address] [id number] [place] [address]- 8353 05 Jan, 2013 [facility] [place] [facility] [address] [id number] [place] [address]- 7261 Jan, [facility] [address] [id number] [place] [address]- 1025 Dec, [facility] [place] [facility] [address] [id number] [place] [address]- 4007 Dec, [facility] [place] [facility] [address] [id number] [place] [address]- 1066 Dec, [facility] [address] [id number] [place] [address] 2546 Dec, [facility] [place] [facility] [address] [id number] [place] [address] 2549 Dec, [facility] [address] [id number] [place] [address]- 2670 Dec, [facility] [address] [id number] [place] [address]- 7001 Dec, [facility] [address] [id number] [place] [address]- 9046 Dec, [facility] [address] [id number] [place] [address]- 5435 Nov, [facility] [address] [id number] [place] [address]- 4501 Nov, [facility] [address] [id number] [place] [address]- 8361 Nov, [facility] [address] [id number], [place] [address] 75[address] Nov, [facility] [place] [facility] [address] [id number], [place] [address] 0605 Nov, [facility] [place] [facility] [address] [id number] [place] [address]- 1511 Nov, [facility] [place] [facility] [address] [id number] [place] [address]- 0181 Nov, [facility] [place] [facility] [address] [id number] [place] [address]- 9608 Oct, [facility] [place] [facility] [address] [id number] [place] [address]- 8874 Oct, [facility] [place] [facility] [address] [id number] [place] [address]- 9126 Oct, [facility] [place] [facility] [address] [id number] [place] [address]- 7036 Oct, [facility] [place] [facility] [address] [id number] [place] [address]- 2206 Oct, [facility] [place] [facility] [address] [id number] [place] [address] 2546 Oct, [facility] [place] [facility] [address] [id number] [place] [address]- 6318 Oct, [facility] [place] [facility] [address] [id number] [place] [address]- 7232 Oct, [facility] [place] [facility] [address] [id number] [place] [address]- 3902 Sep, [facility] [place] [facility] [address] [id number] [place] [address]- 3766 Sep, [facility] [place] [facility] [address] [id number] [place] [address]- 3781 Sep, [facility] [place] [facility] [address] [id number] [place] [address]- 9047 Sep, [facility] [place] [facility] [address] [id number] [place] [address] 2546 Sep, [facility] [place] [facility] [address] [id number] [place] [address]- 2540 Sep, [facility] [place] [facility] [address] [id number] [place] [address]- 0664 Sep, [facility] [place] [facility] [address] [id number] [place] [address]- 2549 Sep, [facility] [place] [facility] [address] [id number] [place] [address]- 1443 Sep, [facility] [place] [facility] [address] [id number] [place] [address]- 0850 Sep, [facility] [place] [facility] [address] [id number] [place] [address]- 4207 Sep, [facility] [place] [facility] [address] [id number] [place] [address]- 7444 Sep, [facility] [place] [facility] [address] [id number] [place] [address]- 1311 Sep, [facility] [place] [facility] [address] [id number] [place] [address]- 2055 Sep, [facility] [place] [facility] [address] [id number] [place] [address]- 6972 Sep, [facility] [place] [facility] [address] [id number] [place] [address]- 9612 Sep, [facility] [place] [facility] [address] [id number] [place] [address]- 1673 Sep, [facility] [place] [facility] [address] [id number] [place] [address]- 2300 Sep, [facility] [place] [facility] [address] [id number] [place] [address]- 3260 Sep, [facility] [place] [facility] [address] [id number] [place] [address]- 4875 Sep, [facility] [place] [facility] [address] [id number], [place] [address]- 8459 Aug, [facility] [place] [facility] [address] [id number] [place] [address]- 4173 Aug, [facility] [place] [facility] [address] [id number] [place] [address]- 3995 Aug, [facility] [place] [facility] [address] [id number] [place] [address]- 4103 Aug, [facility] [place] [facility] [address] [id number], [place] [address]- 3619 27 Aug, 2012 [facility] [place] [facility] [address] [id number] [place] [address]- 2057 Aug, [facility] [place] [facility] [address] [id number] [place] [address]- 4005 18 Aug, 2012 [facility] [place] [facility] [address] [id number] [place] [address]- 4335 17 Aug, 2012 [facility] [place] [facility] [address] [id number] [place] [address] 16 Aug, 2012 [facility] [place] [facility] [address] [id number] [place] [address]- 6049 16 Aug, 2012 [facility] [place] [facility] [address] [id number] [place] [address]- 3430 15 Aug, 2012 [facility] [place] [facility] [address] [id number] [place] [address]- 3985 Aug, [facility] [place] [facility] [address] [id number] [place] [address]- 5178 Aug, [facility] [place] [facility] [address] [id number] [place] [address]- 5341 05 Aug, 2012 [facility] [place] [facility] [address] [id number] [place] [address]- 7171 Aug, [facility] [place] [facility] [address] [id number], [place] [address]- 5179 14 Jul, 2012 [facility] [place] [facility] [address] [id number] [place] [address]- 3524 10 Jul, 2012 [facility] [place] [facility] [address] [id number] [place] [address]- 4347 31 Jun, 2012 [facility] [place] [facility] [address] [id number] [place] [address]- 7834 Jun, [facility] [place] [facility] [address] [id number] [place] [address]- 6893 May, [facility] [place] [facility] [address] [id number] [place] [address]- 3474 May, [facility] [address] [id number] [place] [address]- 0631 24 May, 2012 [facility] [address] [id number] [place] [address]- 3876 May, [facility] [address] [id number] [place] [address]- 5628 May, [facility] [address] [id number] [place] [address]- 8608 May, [facility] [address] [id number] [place] [address]- 0549 Apr, [facility] [address] [id number] [place] [address]- 4049 Apr, [facility] [address] [id number] [place] [address]- 2440 March, [facility] [address] [id number] [place] [address]- 4272 March, [facility] [address] [id number] [place] [address]- 7324 March, [facility] [address] [id number] [place] [address]- 6318 March, [facility] [address] [id number] [place] [address]- 0213 March, [facility] [address] [id number] [place] [address]- 3112 March, [facility] [place] [facility] [address] [id number] [place] [address]- 8673 30 Feb, 2012 [facility] [address] [id number] [place] [address]- 9433 Feb, [facility] [address] [id number] [place] [address]- 7591 Feb, [facility] [place] [facility] [address] [id number] [place] [address]- 5518 Feb, [facility] [place] [facility] [address] [id number] [place] [address]- 0855 Feb, [facility] [place] [facility] [address] [id number] [place] [address]- 3237 Feb, [facility] [place] [facility] [address] [id number] [place] [address]- 0683 Feb, [facility] [place] [facility] [address] [id number] [place] [address]- 2887 Feb, [facility] [place] [facility] [address] [id number] [place] [address]- 7976 Feb, [facility] [place] [facility] [address] [id number] [place] [address]- 0003 30 Jan, 2012 [facility] [place] [facility] [address] [id number] [place] [address]- 5020 Jan, [facility] [place] [facility] [address] [id number] [place] [address]- 6541 Jan, [facility] [place] [facility] [address] [id number] [place] [address]- 3942 Jan, [facility] [place] [facility] [address] [id number] [place] [address]- 4547 Jan, [facility] [place] [facility] [address] [id number] [place] [address]- 7014 Jan, [facility] [place] [facility] [address] [id number] [place] [address]- 6408 14 Jan, 2012 [facility] [place] [facility] [address] [id number] [place] [address]- 2871 Jan, [facility] [place] [facility] [address] [id number] [place] Jan, [facility] [place] [facility] [address] [id number] [place] [address]- 8333 08 Jan, 2012 [facility] [address] [id number] [place] [address]- 8251 07 Jan, 2012 [facility] [place] [facility] [address] [id number] [place] [address]- 2136 06 Jan, 2012 [facility] [place] [facility] [address] [id number] [place] [address]- 2876 Jan, [facility] [place] [facility] [address] [id number] [place] [address]- 8395 Jan, [facility] [place] [facility] [address] [id number] [place] [address]- 5635 28 Dec, 2011 [facility] [place] [facility] [address] [id number] [place] [address]- 9027 27 Dec, 2011 [facility] [address] [id number] [place] [address]- 6313 Dec, [facility] [place] [facility] [address] [id number] [place] [address]- 4546 23 Dec, 2011 [facility] [place] [facility] [address] [id number] [place] [address]- 3533 16 Dec, 2011 [facility] [address] [id number] [place] [address]- 5372 Dec, [facility] [place] [facility] [address] [id number] [place] [address]- 5793 Dec, [facility] [place] [facility] [address] [id number] [place] [address]- 6071 Dec, [facility] [place] [facility] [address] [id number] [place] [address]- 6895 Dec, [facility] [place] [facility] [address] [id number] [place] [address]- 6256 Nov, [facility] [place] [facility] [address] [id number] [place] [address]- 2749 Nov, [facility] [address] [id number] [place] [address]- 8042 Nov, [facility] [place] [facility] [address] [id number] [place] [address]- 7117 Nov, [facility] [place] [facility] [address] [id number] [place] [address]- 5270 Oct, [facility] [place] [facility] [address] [id number] [place] [address]- 6724 Oct, [facility] [place] [facility] [address] [id number] [place] [address]- 7556 Oct, [facility] [place] [facility] [address] [id number] [place] [address]- 4364 Oct, [facility] [place] [facility] [address] [id number] [place] [address]- 0526 Oct, [facility] [place] [facility] [address] [id number] [place] [address]- 8885 Oct, [facility] [place] [facility] [address] [id number] [place] [address]- 9414 Oct, [facility] [place] [facility] [address] [id number] [place] [address]- 5614 Sep, [facility] [place] [facility] [address] [id number] [place] [address]- 0561 Sep, [facility] [place] [facility] [address] [id number], [place] [address]- 6329 Sep, [facility] [place] [facility] [address] [id number] [place] [address]- 6164 Sep, [facility] [place] [facility] [address] [id number], [place] [address]- 3258 Sep, [facility] [place] [facility] [address] [id number] [place] [address]- 4398 Sep, [facility] [place] [facility] [address] [id number] [place] [address]- 0200 Sep, [facility] [place] [facility] [address] [id number] [place] [address]- 1714 Sep, [facility] [place] [facility] [address] [id number] [place] [address] Sep, [facility] [place] [facility] [address] [id number] [place] [address]- 7714 Aug, [facility] [place] [facility] [address] [id number] [place] [address]- 6800 Aug, [facility] [place] [facility] [address] [id number] [place] [address], [place] [address]- 5198 Aug, [facility] [place] [facility] [address] [id number] [place] [address]- 7736 May, [facility] [place] [facility] [address] [id number] [place] [address]- 4650 Nov, [facility] [place] [facility] [address] [id number] [place] [address]- 9900 Oct, [facility] [place] [facility] [address] [id number] [place] [address]- 8332 Oct, [facility] [place] [facility] [address] [facility] [id number] [place] [address]- 8167 Oct, [facility] [place] [facility] [address] [id number] [place] [address]- 0537 Oct, [facility] [place] [facility] [address] [id number] [place] [address]- 2545 Oct, [facility] [place] [facility] [address] [id number] [place] [address]- 9583 03 Sep, 2010 [facility] [place] [facility] [address] [facility] [id number] [place] [address]- 0308 02 Sep, 2010 [facility] [place] [facility] [address] [facility] [id number] [place] [address] 14 Jul, 2010 [facility] [place] [facility] [address] [facility] [id number], [place] [address]- 8576 Oct, [facility] [address] [facility] [id number][place] 7290 Oct, [facility] [address] [facility] [id number], [place] [address]- 3737 Oct, [facility] [address] [facility] [id number][place] 1273 Oct, [facility] [address] [facility] [id number], [place] [address]- 3620 Sep, [facility] [id number] [place] [address]- 0114 Sep, [facility] [id number], [place] [address]- 7489 Sep, [facility] [id number], [place] [address]- 6209 Sep, [facility] [id number], [place] [address]- 5824 Sep, [facility] [id number], [place] [address]- 0206 Jul, [facility] [id number], [place] [address]- 9571 Apr, [facility] [id number], [place] [address]- 6162 Dec, IMMUNIZATIONS No Known Immunizations SOCIAL HISTORY Never Assessed REASON FOR VISIT lvm PLAN OF CARE VITAL SIGNS MEDICATIONS Medication [...]
--- OUTSIDE RECORDS SUMMARY | 2018-11-26 16:07 | XMS REPORT ---
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 Name Role Phone ERVIN ISAAC Unavailable PROBLEMS Type Condition ICD9-CM Code DYM48-HF Code Onset Dates Condition Status SNOMED Code Problem Acquired hypothyroidism E03.9 Active 260122892 Problem Lumbago with sciatica, left side M54.42 Active 190807960 Problem Gastroesophageal reflux disease, esophagitis presence not specified K21.9 Active 296647902 Problem Prediabetes R73.03 Active 113400491 Problem Reactive depression F32.9 Active 22660991 Problem Mixed hyperlipidemia E78.2 Active 323213781 Problem Essential hypertension I10 Active 38703213 Problem Seizures R56.9 Active 01952794 Problem Chronic obstructive pulmonary disease, unspecified COPD type J44.9 Active 22836350 Problem Other chronic pain G89.29 Active 85490072 Problem Lumbago with sciatica, right side M54.41 Active [id number] Problem Pain in right ankle and joints of right foot M25.571 Active 76630448158859 Problem Cigarette nicotine dependence without complication F17.210 Active 32092897 ALLERGIES No Information ENCOUNTERS Encounter Location Date Diagnosis [place] [id number] [place] [address] 38417- 9876 Jul, [place] [address] [place] [id number] [place] [address] 30572- 7975 Jun, Chest congestion R09.89 and Seizures R56.9 [place] [address] [id number] [place] [address] 25103- 0966 May, Pain in thoracic spine M54.6 [place] [id number] [place] [address] 93119- 4893 May, [place] [id number] [address] 5076 May, [facility] [place] [facility] [id number] [place] [address] 34616- 3125 May, [facility] [place] [facility] [id number] [place] [address] 36204- 5412 May, Acute non-recurrent frontal sinusitis J01.10 and Dermatitis L30.9 [facility] [place] [facility] [id number] [place] [address] 86381- 6384 May, [facility] [facility] [id number] [place] [address] 73836- 2240 May, Pain in thoracic spine M54.6 [facility] [facility] [id number] [place] [address] 13919- 3425 May, [facility] [place] [facility] [id number] [place] [address] 02034- 9637 May, Acute nasopharyngitis J00 [facility] [facility] [id number] [place] [address] 05013- 3047 May, [facility] [facility] [id number] [place] [address] 99143- 0589 May, [facility] [place] [facility] [id number] [place] [address] 34052- 7931 Apr, [facility] [place] [facility] [id number] [place] [address] 38990- 7302 Apr, [facility] [place] [facility] [id number] [place] [address] 24077- 2542 Apr, [facility] [facility] [id number] [place] [address] 59060- 9445 Apr, [facility] [facility] [id number] [place] [address] 92563- 1063 Apr, Pain in right ankle and joints of right foot M25.571 [facility] [facility] [id number] [place] [address] 51533- 9544 19 Apr, 2018 [facility] [facility] [id number] [place] [address] 07459- 2216 Apr, Bronchitis J40 ; Pain in right ankle and joints of right foot M25.571 ; Other chronic pain G89.29 ; Prediabetes R73.03 ; Chronic obstructive pulmonary disease, unspecified COPD type J44.9 and Cigarette nicotine dependence without complication F17.210 [facility] [id number] [place] [address] 78113 -6645 13 Apr, 2018 Seasonal allergic rhinitis, unspecified trigger J30.2 [place] [address] 08891- 3736 08 Apr, 2018 Onychomycosis B35.1 ; Onychocryptosis L60.0 and DM 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 [place] [address] 78148- 3948 Apr, Reactive depression F32.9 ; Thoracic myofascial strain, initial encounter S29.019A and Leg cramps R25.2 [place] [address] 30329- 6304 March, [place] [address] [id number] [place] [address] 77882- 2662 March, Type 2 diabetes mellitus with hyperglycemia E11.65 [place] [address] [address] [id number] [place] [address] 39436- 2951 March, Reactive depression F32.9 [place] [address] [address] [id number] [place] [address] 69526- 9837 March, Pain in thoracic spine M54.6 and Other chronic pain G89.29 [facility] [place] [facility] [address] [address] [id number] [place] [address] 38626- 8608 Feb, [place] [id number] [place] [address] 55225- 9566 Jan, Reactive depression F32.9 ; Essential hypertension I10 ; Gastroesophageal reflux disease, esophagitis presence not specified K21.9 ; Lumbago with sciatica, left side M54.42 and Lumbago with sciatica, right side M54.41 [place] [address] 52881- 5832 Jan, Reactive depression F32.9 and Pharyngoesophageal dysphagia R13.14 [place] [address] 15046- 5231 Jan, [place] [address] 78930- 4535 Jan, Encounter for immunization Z23 [place] [address] 25153- 4177 Jan, Onychomycosis B35.1 and DM 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 [place] [address] 01762- 8497 Jan, [place] [address] 82182- 4669 Jan, Prediabetes R73.03 [place] [address] 66123- 8409 Dec, [place] [address] 05006- 4221 Dec, Essential hypertension I10 ; Mixed hyperlipidemia E78.2 ; Acquired hypothyroidism E03.9 ; Reactive depression F32.9 and Prediabetes R73.03 [place] [address] 63617- 1106 Dec, [place] [address] 79003- 4076 Dec, [place] [address] 05906- 4289 Dec, DM 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 [facility] [address] [address]11[address] 08 Dec, 2017 Bruise T14.8XXA ; Type 2 diabetes mellitus with hyperglycemia E11.65 and shelter current use of insulin Z79.4 [facility] [facility] [id number] [address]- 0176 Oct, [facility] [facility] [id number] [place] [address] 54522- 3155 March, Onychomycosis B35.1 and DM 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 [facility] [facility] [id number] [place] [address] 05579- 0573 Jun, [facility] [facility] [id number] [place] [address] 18618- 9347 Jun, [facility] [facility] [id number] [place] [address] 69574- 6042 Jun, COPD with acute exacerbation 491.21 [facility] [facility] [id number] [place] [address] 52200- 0875 15 Apr, 2015 [facility] [facility] [id number] [place] [address] 19890- 6904 14 Feb, 2015 [facility] [place] [facility] [id number] [place] [address] 75296- 5870 Feb, [facility] [facility] [id number] [place] [address] 51238- 6584 Jan, [facility] [facility] [address] [address]- 9780 Jan, [facility] [facility] [id number] [place] [address] 29109- 8737 Jan, [facility] [place] [facility] [id number] [address]- 1445 Jan, [facility] [place] [facility] [id number] [place] [address] 86110- 8426 Jan, [facility] [place] [facility] [address] [id number] [place] [address]- 0151 23 Jan, 2014 [facility] [place] [facility] [address] [id number] [place] [address]- 4418 23 Jan, 2014 [facility] [place] [facility] [address] [id number] [place] [address]- 6786 23 Jan, 2014 [facility] [place] [facility] [address] [id number] [place] [address]- 8283 23 Jan, 2014 [facility] [place] [facility] [address] [id number] [place] [address]- 5320 19 Jan, 2014 [facility] [place] [facility] [address] [id number] [place] [address]- 1715 19 Jan, 2014 [facility] [place] [facility] [address] [id number] [place] [address]- 4855 18 Jan, 2014 [facility] [place] [facility] [address] [id number] [place] [address]- 4247 18 Jan, 2014 [facility] [place] [facility] [address] [id number] [place] [address]- 7877 16 Jan, 2014 [facility] [place] [facility] [address] [id number] [place] [address]- 8631 16 Jan, 2014 [facility] [place] [facility] [address] [id number] [place] [address]- 6491 16 Jan, 2014 [facility] [place] [facility] [address] [id number] [place] [address]- 2059 16 Jan, 2014 [facility] [place] [facility] [address] [id number] [place] [address]- 5343 15 Jan, 2015 [facility] [place] [facility] [address] [id number] [place] [address]- 9474 13 Jan, 2014 [facility] [place] [facility] [address] [id number] [place] [address]- 1633 13 Jan, 2014 [facility] [place] [facility] [address] [id number] [place] [address]- 6669 13 Jan, 2015 [facility] [place] [facility] [address] [id number] [place] [address]- 2263 13 Jan, 2015 [facility] [place] [facility] [address] [facility] [id number] [place] [address]- 1947 12 Jan, 2014 [facility] [place] [facility] [address] [facility] [id number] [place] [address]- 8847 Jan, 2014 [facility] [place] [facility] [address] [id number] [place] [address]- 7574 Jan, [facility] [place] [facility] [address] [id number] [place] [address]- 1948 24 Dec, 2014 [facility] [place] [facility] [address] [facility] [id number] [place] [address]- 3967 24 Dec, 2014 [facility] [place] [facility] [address] [facility] [id number] [place] [address]- 4846 24 Dec, 2014 [facility] [place] [facility] [address] [facility] [id number] [place] [address]- 0927 24 Dec, 2014 [facility] [place] [facility] [address] [facility] [id number] [place] [address]- 0130 Dec, 2014 [facility] [place] [facility] [address] [facility] [id number] [place] [address]- 8105 23 Dec, 2014 [facility] [place] [facility] [address] [facility] [id number] [place] [address]- 9613 20 Dec, 2014 [facility] [place] [facility] [address] [facility] [id number] [place] [address]- 8332 20 Dec, 2014 [facility] [place] [facility] [address] [facility] [id number] [place] [address]- 2960 19 Dec, 2014 [facility] [place] [facility] [address] [facility] [id number] [place] [address]- 2571 19 Dec, 2014 [facility] [place] [facility] [address] [facility] [id number] [place] [address]- 9161 Dec, [facility] [place] [facility] [address] [id number] [place] [address]- 3201 Dec, [facility] [place] [facility] [address] [id number] [place] [address]- 6407 Nov, [facility] [place] [facility] [address] [id number] [place] [address]- 8232 Nov, [facility] [place] [facility] [address] [id number] [place] [address]- 1286 Nov, [facility] [place] [facility] [address] [id number] [place] [address]- 7008 Nov, [facility] [place] [facility] [address] [id number] [place] [address]- 2829 Nov, [facility] [place] [facility] [address] [id number] [place] [address]- 0856 Nov, [facility] [place] [facility] [address] [id number] [place] [address]- 2036 Nov, [facility] [place] [facility] [address] [id number] [place] [address]- 8824 Nov, [facility] [place] [facility] [address] [id number] [place] [address]- 1356 Nov, [facility] [place] [facility] [address] [id number] [place] [address]- 4170 Nov, [facility] [place] [facility] [address] [id number], [place] [address]- 9605 Nov, [facility] [place] [facility] [address] [id number] [place] [address]- 6391 Nov, [facility] [place] [facility] [address] [id number] [place] [address]- 2565 Oct, [facility] [place] [facility] [address] [id number] [place] [address]- 0413 Oct, [facility] [place] [facility] [address] [id number] [place] 4263 30 Oct, 2014 [facility] [place] [facility] [address] [id number] [place] [address]- 8091 30 Oct, 2014 [facility] [place] [facility] [address] [id number] [place] [address]- 2326 29 Oct, 2014 [facility] [place] [facility] [address] [id number] [place] [address]- 5686 29 Oct, 2014 [facility] [place] [facility] [address] [id number] [place] [address]- 9214 Oct, [facility] [place] [facility] [address] [id number] [place] [address]- 2007 23 Oct, 2014 [facility] [place] [facility] [address] [id number] [place] [address]- 5620 17 Oct, 2014 [facility] [place] [facility] [address] [id number] [place] [address]- 6950 17 Oct, 2014 [facility] [place] [facility] [address] [id number] [place] [address]- 4070 16 Oct, 2014 [facility] [place] [facility] [address] [id number] [place] [address]- 8328 16 Oct, 2014 [facility] [place] [facility] [address] [facility] [id number] [place] [address]- 8412 15 Oct, 2014 [facility] [place] [facility] [address] [id number] [place] [address]- 3700 15 Oct, 2014 [facility] [place] [facility] [address] [id number] [place] [address]- 2684 08 Oct, 2014 [facility] [place] [facility] [address] [id number] [place] [address]- 9174 24 Sep, 2014 [facility] [place] [facility] [address] [id number] [place] [address]- 0133 24 Sep, 2014 [facility] [place] [facility] [address] [id number] [place] [address]- 5588 Sep, [facility] [place] [facility] [address] [id number] [place] [address]- 1834 Sep, [facility] [place] [facility] [address] [id number] [place] [address]- 4184 Aug, [facility] [place] [facility] [address] [id number] [place] [address]- 3659 Aug, [facility] [place] [facility] [address] [id number] [place] [address]- 4792 Aug, [facility] [place] [facility] [address] [id number] [place] [address]- 0665 Aug, [facility] [place] [facility] [address] [id number] [place] [address]- 5033 Aug, [facility] [place] [facility] [address] [id number] [place] [address]- 8006 Aug, [facility] [place] [facility] [address] [id number] [place] [address]- 9173 29 Jul, 2014 [facility] [place] [facility] [address] [id number] [place] [address]- 6251 29 Jul, 2014 [facility] [place] [facility] [address] [id number] [place] [address]- 2431 15 Jul, 2014 [facility] [place] [facility] [address] [id number] [place] [address]- 2934 15 Jul, 2014 [facility] [place] [facility] [address] [id number] [place] [address]- 4263 08 Jul, 2014 [facility] [place] [facility] [address] [id number] [place] [address]- 4117 08 Jul, 2014 [facility] [place] [facility] [address] [id number] [place] [address]- 2836 Jun, [facility] [place] [facility] [address] [id number] [place] [address]- 1637 Jun, [facility] [place] [facility] [address] [id number] [place] [address]- 7661 Jun, [facility] [place] [facility] [address] [id number] [place] [address]- 0534 Jun, [facility] [place] [facility] [address] [id number] [place] [address]- 2904 Jun, [facility] [place] [facility] [address] [id number] [place] [address]- 6344 Jun, [facility] [place] [facility] [address] [id number] [place] [address]- 9547 Jun, [facility] [place] [facility] [address] [id number] [place] [address]- 4205 May, [facility] [place] [facility] [address] [id number] [place] [address]- 9906 May, [facility] [place] [facility] [address] [id number] [place] [address]- 4744 May, [facility] [place] [facility] [address] [id number] [place] [address]- 4288 May, [facility] [place] [facility] [address] [id number] [place] [address]- 3402 May, [facility] [place] [facility] [address] [id number] [place] [address]- 5663 May, [facility] [place] [facility] [address] [id number] [place] [address]- 5081 May, [facility] [place] [facility] [address] [id number] [place] [address]- 4618 May, [facility] [place] [facility] [address] [id number] [place] [address]- 9640 May, [facility] [place] [facility] [address] [id number] [place] [address]- 1169 May, [facility] [place] [facility] [address] [id number] [place] [address]- 8614 May, [facility] [place] [facility] [address] [id number] [place] [address]- 7801 May, [facility] [place] [facility] [address] [id number] [place] [address]- 2812 Apr, [facility] [place] [facility] [address] [id number] [place] [address]- 2917 Apr, [facility] [place] [facility] [address] [id number] [place] [address]- 7103 Apr, [facility] [place] [facility] [address] [id number] [place] [address]- 5732 Apr, [facility] [place] [facility] [address] [id number] [place] [address]- 4449 Apr, [facility] [place] [facility] [address] [id number] [place] [address]- 5081 Apr, [facility] [place] [facility] [address] [id number] [place] [address]- 8285 Apr, [facility] [place] [facility] [address] [id number] [place] [address]- 1063 Apr, [facility] [place] [facility] [address] [id number] [place] [address]- 3578 Apr, [facility] [place] [facility] [address] [id number] [place] [address]- 2321 Apr, [facility] [place] [facility] [address] [id number] [place] [address]- 2780 March, [facility] [place] [facility] [address] [id number] [place] [address]- 3288 March, [facility] [place] [facility] [address] [id number] [place] [address]- 1122 March, [facility] [place] [facility] [address] [id number] [place] [address]- 8005 March, [facility] [place] [facility] [address] [id number] [place] [address]- 2577 March, [facility] [place] [facility] [address] [id number] [place] [address]- 6311 March, [facility] [place] [facility] [address] [id number] [place] [address]- 1794 Feb, [facility] [place] [facility] [address] [id number] [place] [address]- 6869 Feb, [facility] [place] [facility] [address] [id number] [place] [address]- 2371 Feb, [facility] [place] [facility] [address] [id number] [place] [address]- 9371 Feb, [facility] [place] [facility] [address] [id number] [place] [address]- 6163 Feb, [facility] [place] [facility] [address] [id number] [place] [address]- 1765 Feb, [facility] [place] [facility] [address] [id number] [place] [address]- 4564 Feb, [facility] [place] [facility] [address] [id number] [place] [address]- 5779 Feb, [facility] [place] [facility] [address] [id number] [place] [address]- 0648 Feb, [facility] [place] [facility] [address] [id number] [place] [address]- 4620 Feb, [facility] [place] [facility] [address] [id number] [place] [address] Jan, [facility] [place] [facility] [address] [id number] [place] [address] Jan, [facility] [place] [facility] [address] [id number] [place] [address] Jan, [facility] [place] [facility] [address] [id number] [place] [address] Jan, [facility] [place] [facility] [address] [id number] [place] [address] Jan, [facility] [place] [facility] [address] [id number] [place] [address] Jan, [facility] [place] [facility] [address] [id number] [place] [address] Jan, [facility] [place] [facility] [address] [facility] [id number] [place] [address] Jan, [facility] [place] [facility] [address] [id number] [place] [address] Dec, [facility] [place] [facility] [address] [id number] [place] [address] Dec, [facility] [place] [facility] [address] [id number] [place] [address] Dec, [facility] [place] [facility] [address] [facility] [id number] [place] [address] Dec, [facility] [place] [facility] [address] [id number] [place] [address] Dec, [facility] [place] [facility] [address] [id number] [place] [address]678 Dec, [facility] [place] [facility] [address] [facility] [id number] [place] [address] 6768 Dec, [facility] [place] [facility] [address] [facility] [id number] [place] [address] Dec, [facility] [place] [facility] [address] [id number] [place] [address] Nov, [facility] [place] [facility] [address] [id number] [place] [address]- [address] Nov, [facility] [place] [facility] [address] [id number] [place] [address] Nov, [facility] [place] [facility] [address] [id number] [place] [address]185 Nov, [facility] [place] [facility] [address] [id number] [place] [address]- [address] Nov, [facility] [place] [facility] [address] [id number] [place] [address]884 Nov, [facility] [place] [facility] [address] [id number] [place] [address] Nov, [facility] [place] [facility] [address] [id number] [place] [address]446 Nov, [facility] [place] [facility] [address] [id number] [place] [address] Nov, [facility] [place] [facility] [address] [id number] [place] [address]- [address] Nov, [facility] [place] [facility] [address] [id number] [place] [address]19 Nov, [facility] [place] [facility] [address] [id number] [place] [address] Oct, [facility] [place] [facility] [address] [id number] [place] [address]004 Oct, [facility] [place] [facility] [address] [id number] [place] [address] 4763 Oct, [facility] [place] [facility] [address] [id number] [place] [address] 1720 Oct, [facility] [place] [facility] [address] [id number], [place] [address] Sep, [facility] [place] [facility] [address] [id number] [place] [address] Sep, [facility] [place] [facility] [address] [id number] [place] [address] Sep, [facility] [place] [facility] [address] [id number], [place] [address] Sep, [facility] [place] [facility] [address] [id number], [place] [address] Aug, [facility] [place] [facility] [address] [id number] [place] [address]148 Aug, [facility] [place] [facility] [address] [id number] [place] [address]471 Aug, [facility] [place] [facility] [address] [id number] [place] [address] Aug, [facility] [place] [facility] [address] [id number] [place] [address]253 Aug, [facility] [place] [facility] [address] [id number] [place] [address] Aug, [facility] [place] [facility] [address] [id number] [place] [address]- [address]591 Aug, [facility] [place] [facility] [address] [id number] [place] [address]- 7683 Aug, [facility] [place] [facility] [address] [id number] [place] [address]- [address]26 28 Jul, 2012 [facility] [place] [facility] [address] [id number] [place] [address] 27 Sep, 2012 [facility] [place] [facility] [address] [id number] [place] [address]- [address]41 26 Sep, 2012 [facility] [place] [facility] [address] [id number], [place] [address] 254 24 Sep, 2012 [facility] [place] [facility] [address] [id number], [place] [address] 24 Sep, 2012 [facility] [place] [facility] [address] [id number] [place] [address] 254 23 Sep, 2012 [facility] [place] [facility] [address] [id number] [place] [address]- [address]41 19 Sep, 2012 [facility] [place] [facility] [address] [id number] [place] [address]- [address]45 18 Sep, 2012 [facility] [place] [facility] [address] [id number] [place] [address] 17 Jul, 2012 [facility] [place] [facility] [address] [id number] [place] [address] 9296 16 Jul, 2012 [facility] [place] [facility] [address] [id number] [place] [address] 2546 13 Jul, 2012 [facility] [place] [facility] [address] [id number] [place] [address] 2546 13 Jul, 2012 [facility] [place] [facility] [address] [id number] [place] [address]48 12 Jul, 2012 [facility] [place] [facility] [address] [id number] [place] [address]- [address] 11 Jul, 2012 [facility] [place] [facility] [address] [id number] [place] [address]- 6727 04 Jul, 2012 [facility] [place] [facility] [address] [id number] [place] [address]- 3291 30 Jun, 2013 [facility] [place] [facility] [address] [id number] [place] [address] Jun, [facility] [place] [facility] [address] [id number] [place] [address] Jun, [facility] [place] [facility] [address] [id number] [place] [address] May, [facility] [place] [facility] [address] [id number] [place] [address] May, [facility] [place] [facility] [address] [id number] [place] [address] May, [facility] [place] [facility] [address] [id number] [place] [address] 48[address] May, [facility] [place] [facility] [address] [id number] [place] [address] 67[address] Apr, [facility] [place] [facility] [address] [id number] [place] [address] Apr, [facility] [address] [id number] [place] [address] 3057 Apr, [facility] [place] [facility] [address] [id number] [place] [address] 6724 Apr, [facility] [address] [id number] [place] [address] March, [facility] [place] [facility] [address] [id number] [place] [address] 4429 March, [facility] [address] [id number] [place] [address] March, [facility] [place] [facility] [address] [id number] [place] [address] 5146 Feb, [facility] [place] [facility] [address] [id number] [place] [address] 2567 Feb, [facility] [place] [facility] [address] [id number] [place] [address]- 4512 Jan, [facility] [place] [facility] [address] [id number] [place] [address] 6049 Jan, [facility] [place] [facility] [address] [id number] [place] [address]- 2468 Jan, [facility] [place] [facility] [address] [id number] [place] [address]- 3786 Jan, [facility] [place] [facility] [address] [id number], [place] [address] Jan, [facility] [place] [facility] [address] [id number] [place] [address] Dec, [facility] [place] [facility] [address] [id number] [place] [address] 3949 Dec, [facility] [place] [facility] [address] [id number] [place] [address] 1797 Dec, [facility] [place] [facility] [address] [id number] [place] [address] 3614 19 Dec, 2012 [facility] [address] [id number] [place] [address] 6[address] 18 Dec, 2012 [facility] [address] [id number] [place] [address] 2546 06 Dec, 2012 [facility] [address] [id number] [place] [address]- 8736 04 Dec, 2012 [facility] [address] [id number] [place] [address] 2540 Dec, [facility] [address] [id number] [place] [address] 8807 Nov, [facility] [address] [id number] [place] [address] 2539 Nov, [facility] [address] [id number] [place] [address]- 6560 Nov, [facility] [address] [id number] [place] [address]- 8257 Nov, [facility] [address] [id number] [place] [address]- 9498 Nov, [facility] [address] [id number] [place] [address]- 5466 Nov, [facility] [address] [id number] [place] [address]- 6182 Nov, [facility] [address] [id number] [place] [address] 254 Oct, [facility] [place] [facility] [address] [id number] [place] [address]- 0966 Oct, [facility] [address] [id number] [place] [address]- 6006 Oct, [facility] [address] [id number] [place] [address] 8085 Oct, [facility] [place] [facility] [address] [id number] [place] [address]- 0577 Oct, [facility] [place] [facility] [address] [id number] [place] [address]- 9950 Oct, [facility] [place] [facility] [address] [id number] [place] [address]- 2892 Oct, [facility] [place] [facility] [address] [id number] [place] [address]- 1626 Oct, [facility] [place] [facility] [address] [id number] [place] [address]- 1514 Sep, [facility] [place] [facility] [address] [id number] [place] [address]- 7869 Sep, [facility] [place] [facility] [address] [id number] [place] [address]- 7245 Sep, [facility] [place] [facility] [address] [id number] [place] [address]- 8250 Sep, [facility] [place] [facility] [address] [id number] [place] [address]- 4670 Sep, [facility] [place] [facility] [address] [id number] [place] [address]- 2772 Sep, [facility] [place] [facility] [address] [id number], [place] [address]- 3[address] Sep, [facility] [place] [facility] [address] [id number], [place] [address]- 1532 Sep, [facility] [place] [facility] [address] [id number] [place] [address]- 8321 Sep, [facility] [place] [facility] [address] [id number] [place] [address]- 5732 Sep, [facility] [place] [facility] [address] [id number] [place] [address]- 2024 Sep, [facility] [place] [facility] [address] [id number] [place] [address]- 7903 Sep, [facility] [place] [facility] [address] [id number] [place] [address]- 1240 Sep, [facility] [place] [facility] [address] [facility] [id number] [place] [address]- 2461 Sep, [facility] [place] [facility] [address] [facility] [id number] [place] [address]- 4308 Sep, [facility] [place] [facility] [address] [id number] [place] [address]- 3699 Sep, [facility] [place] [facility] [address] [id number] [place] [address]- 6581 Sep, [facility] [place] [facility] [address] [id number] [place] [address]- 4656 Sep, [facility] [place] [facility] [address] [facility] [id number] [place] [address]- 2986 Sep, [facility] [place] [facility] [address] [facility] [id number] [place] [address]- 1237 Sep, [facility] [place] [facility] [address] [facility] [id number] [place] [address]- 7952 Aug, [facility] [place] [facility] [address] [facility] [id number] [place] [address]- 4171 Aug, [facility] [place] [facility] [address] [facility] [id number] [place] [address]- 1677 29 Aug, 2012 [facility] [place] [facility] [address] [facility] [id number], [place] [address]- [address] Aug, [facility] [place] [facility] [address] [id number] [place] [address]- 7428 Aug, [facility] [place] [facility] [address] [facility] [id number] [place] [address]- 2142 Aug, [facility] [place] [facility] [address] [facility] [id number], [place] [address]- 8987 Aug, [facility] [place] [facility] [address] [id number] [place] [address]- 9860 17 Aug, 2012 [facility] [place] [facility] [address] [id number] [place] [address] Aug, [facility] [place] [facility] [address] [id number] [place] [address]- 7140 16 Aug, 2012 [facility] [place] [facility] [address] [id number] [place] [address]- 0327 15 Aug, 2012 [facility] [place] [facility] [address] [id number] [place] [address]- 8244 Aug, [facility] [place] [facility] [address] [id number] [place] [address]- 1646 Aug, [facility] [place] [facility] [address] [id number] [place] [address]- 0908 Aug, [facility] [place] [facility] [address] [id number] [place] [address]- 1063 Aug, [facility] [place] [facility] [address] [id number] [place] [address]- 6042 14 Jul, 2012 [facility] [place] [facility] [address] [id number] [place] [address]- 0606 10 Jul, 2012 [facility] [place] [facility] [address] [id number] [place] [address]- 5781 Jun, [facility] [place] [facility] [address] [id number] [place] [address]- 9410 Jun, [facility] [place] [facility] [address] [id number] [place] [address]- 1637 31 May, 2012 [facility] [place] [facility] [address] [id number] [place] [address]- 0440 May, [facility] [place] [facility] [address] [id number] [place] [address]- 1639 May, [facility] [place] [facility] [address] [id number] [place] [address]- 0140 May, [facility] [place] [facility] [address] [id number] [place] [address]- 0012 May, [facility] [place] [facility] [address] [id number] [place] [address]- 2103 May, [facility] [place] [facility] [address] [id number] [place] [address]- 9054 Apr, [facility] [place] [facility] [address] [id number] [place] [address]- 4080 Apr, [facility] [place] [facility] [address] [id number] [place] [address]- 2033 March, [facility] [place] [facility] [address] [id number] [place] [address]- 4564 March, [facility] [place] [facility] [address] [id number] [place] [address]- 5590 March, [facility] [place] [facility] [address] [id number] [place] [address]- 3922 March, [facility] [place] [facility] [address] [id number] [place] [address]- 6783 March, [facility] [place] [facility] [address] [id number] [place] [address]- 1936 March, [facility] [place] [facility] [address] [id number] [place] [address]- 4323 Feb, [facility] [place] [facility] [address] [id number] [place] [address]- 2497 Feb, [facility] [place] [facility] [address] [id number] [place] [address]- 2313 Feb, [facility] [place] [facility] [address] [id number] [place] [address]- 4545 Feb, [facility] [place] [facility] [address] [id number] [place] [address]- 7138 Feb, [facility] [place] [facility] [address] [id number] [place] [address]- 8823 19 Feb, 2012 [facility] [address] [id number] [place] [address]- 9916 10 Feb, 2012 [facility] [address] [id number] [place] [address]- 8496 Feb, [facility] [address] [id number] [place] [address]- 6576 04 Feb, 2012 [facility] [address] [id number] [place] [address]- 3537 30 Jan, 2012 [facility] [address] [id number] [place] [address]- 9291 27 Jan, 2012 [facility] [address] [id number] [place] [address]- 8108 26 Jan, 2012 [facility] [address] [id number] [place] [address]- 2689 22 Jan, 2012 [facility] [address] [id number] [place] [address]- 8647 21 Jan, 2012 [facility] [address] [id number] [place] [address]- 6540 20 Jan, 2012 [facility] [address] [id number] [place] [address]- 3708 14 Jan, 2012 [facility] [address] [id number] [place] [address]- 5654 Jan, [facility] [address] [id number] [place] [address]- 8892 09 Jan, 2012 [facility] [place] [facility] [address] [id number] [place] [address]- 7052 08 Jan, 2012 [facility] [address] [id number] [place] [address]- 4796 07 Jan, 2012 [facility] [address] [id number] [place] [address]- 9365 06 Jan, 2012 [facility] [place] [facility] [address] [id number] [place] [address]- 1358 Jan, [facility] [place] [facility] [address] [id number] [place] [address]- 3476 Jan, [facility] [place] [facility] [address] [id number] [place] [address]- 4296 Dec, [facility] [place] [facility] [address] [id number] [place] [address]- 7106 Dec, [facility] [place] [facility] [address] [id number] [place] [address]- 8909 25 Dec, 2011 [facility] [place] [facility] [address] [id number] [place] [address]- 5746 23 Dec, 2011 [facility] [place] [facility] [address] [id number] [place] [address]- 1926 16 Dec, 2011 [facility] [place] [facility] [address] [id number] [place] [address]- 7963 08 Dec, 2011 [facility] [place] [facility] [address] [id number] [place] [address]- 0815 08 Dec, 2011 [facility] [place] [facility] [address] [id number] [place] [address]- 0821 07 Dec, 2011 [facility] [place] [facility] [address] [id number] [place] [address]- 4993 Dec, [facility] [place] [facility] [address] [id number] [place] [address]- 0508 Nov, [facility] [place] [facility] [address] [id number] [place] [address]- 4844 Nov, [facility] [place] [facility] [address] [id number] [place] [address]- 9567 Nov, [facility] [place] [facility] [address] [facility] [id number] [place] [address]- 9399 Nov, [facility] [place] [facility] [address] [id number] [place] [address]- 6180 Oct, [facility] [address] [id number] [place] [address]- 9355 Oct, [facility] [place] [facility] [address] [id number] [place] [address]- 9847 Oct, [facility] [address] [id number] [place] [address]- 0092 Oct, [facility] [address] [id number] [place] [address]- 7686 Oct, [facility] [address] [id number] [place] [address]- 1941 Oct, [facility] [address] [id number] [place] [address]- 6583 Oct, [facility] [address] [id number] [place] [address]- 4428 Sep, [facility] [address] [id number] [place] [address]- 8942 Sep, [facility] [address] [id number] [place] [address]- 7040 Sep, [facility] [address] [id number] [place] [address]- 4366 Sep, [facility] [place] [place] [facility] [address] [id number] [place] [address]- 1952 Sep, [facility] [address] [id number] [place] [address]- 9286 Sep, [facility] [place] [facility] [address] [id number] [place] [address]- 4946 Sep, [facility] [place] [facility] [address] [id number] [place] [address]- 4645 Sep, [facility] [place] [facility] [address] [id number] [place] [address]- 5011 Sep, [facility] [address] [id number] [place] [address]- 1246 30 Aug, 2011 [facility] [place] [facility] [address] [id number] [place] [address]- 5546 Aug, [facility] [place] [facility] [address] [id number] [place] [address]- 0716 Aug, [facility] [place] [facility] [address] [id number] [place] [address]- 2476 May, [facility] [place] [facility] [address] [id number] [place] [address]- 2089 Nov, [facility] [place] [facility] [address] [id number] [place] [address]- 7739 Oct, [facility] [place] [facility] [address] [id number] [place] [address]- 6496 Oct, [facility] [place] [facility] [address] [id number] [place] [address]- 1836 Oct, [facility] [place] [facility] [address] [id number] [place] [address]- 3932 Oct, [facility] [place] [facility] [address] [facility] [id number], [place] [address]- 4131 Oct, [facility] [place] [facility] [address] [facility] [id number], [place] [address]- 2000 Sep, [facility] [place] [facility] [address] [id number], [place] [address]- 6371 Sep, [facility] [place] [facility] [address] [id number] [place] [address]- 4745 14 Jul, 2010 [facility] [place] [facility] [address] [id number] [place] [address]- 4777 Oct, [facility] [place] [facility] [address] [facility] [id number], [place] [address]- 0773 Oct, [facility] [place] [facility] [address] [id number][place] 4427 Oct, [facility] [place] [facility] [id number] [address] [address]111 Oct, [facility] [place] [facility] [id number] [address] Sep, [facility] [place] [facility] [id number], [place] [address]- 4945 Sep, [facility] [place] [facility] [id number], [place] [address]- 2672 Sep, [facility] [place] [facility] [id number], [place] [address]- 3625 Sep, [facility] [place] [facility] [id number], [place] [address]- 8662 Sep, [facility] [place] [facility] [id number], [place] [address]- 8426 Jul, [facility] [place] [facility] [id number], [place] [address]- 2538 Apr, [facility] [place] [facility] [id number], [place] [address]- 5172 Dec, IMMUNIZATIONS No Known Immunizations SOCIAL HISTORY Never Assessed REASON FOR VISIT intake PLAN OF CARE Activity Details Follow Up 4 Weeks Reason: Follow-up VITAL SIGNS MEDICATIONS Medication Instructions Dosage Frequency Start Date End Date Duration Status Gabapentin 600 MG Orally Once a day 1 capsule before bedtime 24h Active Lisinopril 5 MG Orally Once a day 1 tablet 24h Active Tramadol HCl 50 mg Orally 3 times a day 1 tablet as needed 8h March, Active Atorvastatin Calcium 40 MG TAKE ONE TABLET BY MOUTH DAILY 90 Active Protonix 40 MG Orally Once a day 1 tablet 24h Jan, 30 day(s) Active Metformin HCl 500 MG Orally Twice a day 1 tablet with meals 12h Active Amlodipine Besylate 5 MG Orally Once a day 1 tablet 24h Active Levothyroxine Sodium 50 MCG TAKE ONE TABLET BY MOUTH DAILY 90 Active Prozac 40 mg Orally Once a day 1 capsule 24h Jan, 30 day(s) Active ProAir HFA 90 mcg/actuation inhale 2 puffs by Inhalation route every 4 hours as needed PRN shortness of breath/cough March, Active RESULTS No Results PROCEDURES Procedure Date Ordered Result Body Site Psych diagnostic evaluation, established patient April 13, 2018 INSTRUCTIONS MEDICATIONS ADMINISTERED No Known Medications MEDICAL (GENERAL) HISTORY Type Description Date Medical History hypertension Medical History hyperlipidemia Medical History diabetes type II Medical History COPD Medical History asthma Surgical History hysterectomy Surgical History arthritis surgery Hospitalization History surgeries
--- OUTSIDE RECORDS SUMMARY | 2018-11-26 16:08 | XMS REPORT ---
Author Author KING FISHMAN Organization [facility] Address [address] [place] [address] Care Team Providers Care Manager Of Health Name Role Phone KING FISHMAN Unavailable PROBLEMS Type Condition ICD9-CM Code BEL18-FL Code Onset Dates Condition Status SNOMED Code Problem Acquired hypothyroidism E03.9 Active 409428579 Problem Lumbago with sciatica, left side M54.42 Active 347905861 Problem Gastroesophageal reflux disease, esophagitis presence not specified K21.9 Active 002512318 Problem Prediabetes R73.03 Active 595427459 Problem Reactive depression F32.9 Active 09338482 Problem Mixed hyperlipidemia E78.2 Active 298899269 Problem Essential hypertension I10 Active 11383204 Problem Seizures R56.9 Active 77822339 Problem Chronic obstructive pulmonary disease, unspecified COPD type J44.9 Active 87185961 Problem Other chronic pain G89.29 Active 26794823 Problem Lumbago with sciatica, right side M54.41 Active 71226930310367171 Problem Pain in right ankle and joints of right foot M25.571 Active 62319470511874 Problem Cigarette nicotine dependence without complication F17.210 Active 07266572 ALLERGIES Substance Reaction Event Type Date Status Penicillin G Potassium anaphylaxis Drug Allergy March, Active Codeine Sulfate anaphylaxis Drug Allergy March, Active Aspirin hives Drug Allergy March, Active Peanut hives Non Drug Allergy March, Active ENCOUNTERS Encounter Location Date Diagnosis [facility] [address] [facility] [id number] [address] Jul, [facility] [address] [id number] [address] Jun, Chest congestion R09.89 and Seizures R56.9 [facility] [address] [facility] [id number], [place] [address] May, Pain in thoracic spine M54.6 [facility] [address] [facility] [id number], [place] [address] May, [facility] [address] [facility] [id number] [place] [address] 99519- 9556 May, [facility] [id number] [place] [address] 15381- 6286 May, [facility] [id number] [place] [address] 19951- 7836 May, Acute non-recurrent frontal sinusitis J01.10 and Dermatitis L30.9 [facility] [address] [facility] [id number] [place] [address] 80284- 8296 May, [facility] [id number] [place] [address] 07290- 0064 May, Pain in thoracic spine M54.6 [facility] [id number] [place] [address] 35578- 9822 May, [facility] [id number] [place] [address] 11233- 0393 May, Acute nasopharyngitis J00 [facility] [address] [address] 17[address] May, [facility] [address] [address] 7605 May, [facility] [address] [address] 9362 Apr, [facility] [address], [place] [address] 7157 Apr, [facility] [address] [address] 3107 Apr, [facility] [address], [place] [address] Apr, [facility] [id number] [place] [address] 16942- 0866 21 Apr, 2018 Pain in right ankle and joints of right foot M25.571 [place] [address] [address]- [address] Apr, [place] [address] [place] [id number] [place] [address] 22905- 4664 Apr, Bronchitis J40 ; Pain in right ankle and joints of right foot M25.571 ; Other chronic pain G89.29 ; Prediabetes R73.03 ; Chronic obstructive pulmonary disease, unspecified COPD type J44.9 and Cigarette nicotine dependence without complication F17.210 [facility] WALK [facility] [place] [address] [address] -[address] 13 Apr, 2018 Seasonal allergic rhinitis, unspecified trigger J30.[address] [address]- [address] Apr, Onychomycosis B35.1 ; Onychocryptosis L60.0 and DM 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 [place] [id number] [place] [address] 57520- 3437 Apr, Reactive depression F32.9 ; Thoracic myofascial strain, initial encounter S29.019A and Leg cramps R25.2 [place] [id number] [place] [address] 74897- 2407 March, [place] [address] 6[address]31- 3444 March, Type 2 diabetes mellitus with hyperglycemia E11.65 [place] [address] [place] [address] [id number] [place] [address] 84771- 2551 March, Reactive depression F32.9 [place] [id number] [place] [address] 41743- 3056 March, Pain in thoracic spine M54.6 and Other chronic pain G89.[address] [address]34- 0146 Feb, [place] [address] 04347- 8937 Jan, Reactive depression F32.9 ; Essential hypertension I10 ; Gastroesophageal reflux disease, esophagitis presence not specified K21.9 ; Lumbago with sciatica, left side M54.42 and Lumbago with sciatica, right side M54.41 [place] [address] 9[address]37- 1635 Jan, Reactive depression F32.9 and Pharyngoesophageal dysphagia R13.[address] 778532- 1464 Jan, [place] [address] [address]150- 6357 Jan, Encounter for immunization Z23 [address] [address]- 4351 Jan, Onychomycosis B35.1 and DM 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 27088- 0951 Jan, [place] [address] 21130- 1845 Jan, Prediabetes R73.03 [place] [address] 01711- 2623 Dec, [place] [address] 41539- 5645 Dec, Essential hypertension I10 ; Mixed hyperlipidemia E78.2 ; Acquired hypothyroidism E03.9 ; Reactive depression F32.9 and Prediabetes R73.03 [place] [address] [place] [id number] [place] [address] 71860- 3487 Dec, [place] [address] 19247- 6941 Dec, [facility] [address] [address] 4742 Dec, DM 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 [facility] [id number] [place] [address] 72729 -7919 Dec, Bruise T14.8XXA ; Type 2 diabetes mellitus with hyperglycemia E11.65 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 [facility] [id number] [place] [address] 45111- 5572 Oct, [facility] [id number] [place] [address] 95806- 8599 March, Onychomycosis B35.1 and DM 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 [facility] [id number] [place] [address] 38847- 1930 Jun, [facility] [id number] [place] [address] 64045- 6623 Jun, [facility] [id number] [place] [address] 73496- 5386 Jun, COPD with acute exacerbation 491.21 [facility] [id number] [place] [address] 59682- 1910 Apr, [facility] [id number] [place] [address] 90987- 3444 Feb, [facility] [id number] [place] [address] 37117- 5072 Feb, [facility] [id number] [place] [address] 62618- 4229 Jan, [facility] [id number] [place] [address] 64579- 2517 Jan, [facility] [id number] [place] [address] 70909- 1015 Jan, [facility] [address] [place] [address]- 0933 2014 [facility] [place] [facility] [address] [id number] [place] [address]- 7162 24 Jan, 2015 [facility] [place] [facility] [address] [id number] [place] [address]- 2053 23 Jan, 2014 [facility] [place] [facility] [address] [id number] [place] [address]- 6659 23 Jan, 2014 [facility] [place] [facility] [address] [id number] [place] [address]- 1350 23 Jan, 2015 [facility] [place] [facility] [address] [id number] [place] [address]- 5928 23 Jan, 2015 [facility] [place] [facility] [address] [id number] [place] [address]- 4840 19 Jan, 2014 [facility] [place] [facility] [address] [id number] [place] [address]- 2580 19 Jan, 2014 [facility] [place] [facility] [address] [id number] [place] [address]- 2449 18 Jan, 2015 [facility] [place] [facility] [address] [id number] [place] [address]- 6996 18 Jan, 2014 [facility] [place] [facility] [address] [id number] [place] [address]- 2796 16 Jan, 2014 [facility] [place] [facility] [address] [id number] [place] [address]- 4916 16 Jan, 2014 [facility] [place] [facility] [address] [id number] [place] [address]- 2942 16 Jan, 2014 [facility] [place] [facility] [address] [id number] [place] [address]- 9853 16 Jan, 2014 [facility] [place] [facility] [address] [id number] [place] [address]- 7822 15 Jan, 2014 [facility] [place] [facility] [address] [id number] [place] [address]- 8981 13 Jan, 2015 [facility] [place] [facility] [address] [id number] [place] [address]- 9318 Jan, [facility] [place] [facility] [address] [id number] [place] [address]- 2486 Jan, [facility] [place] [facility] [address] [id number] [place] [address]- 5130 Jan, [facility] [place] [facility] [address] [id number] [place] [address]- 3218 Jan, [facility] [place] [facility] [address] [id number] [place] [address]- 5425 Jan, [facility] [place] [facility] [address] [id number] [place] [address]- 5606 Jan, [facility] [place] [facility] [address] [id number] [place] [address]- 1555 Dec, [facility] [place] [facility] [address] [id number] [place] [address]- 8697 Dec, 2014 [facility] [place] [facility] [address] [id number] [place] [address]- 1180 Dec, [facility] [place] [facility] [address] [id number] [place] [address]- 4782 Dec, [facility] [place] [facility] [address] [facility] [id number] [place] [address]- 0913 Dec, [facility] [place] [facility] [address] [id number] [place] [address]- 1699 Dec, 2014 [facility] [place] [facility] [address] [id number] [place] [address]- 1870 Dec, [facility] [place] [facility] [address] [id number] [place] [address]- 6689 Dec, 2014 [facility] [place] [facility] [address] [facility] [id number] [place] [address]- 7156 Dec, 2014 [facility] [place] [facility] [address] [id number] [place] [address]- 6743 19 Dec, 2014 [facility] [address] [id number] [place] [address]- 5882 Dec, [facility] [place] [facility] [address] [id number] [place] [address]- 0166 16 Dec, 2014 [facility] [address] [id number] [place] [address]- 6322 Nov, [facility] [place] [facility] [address] [id number] [place] [address]- 0180 Nov, [facility] [address] [id number] [place] [address]- 3964 Nov, [facility] [address] [id number] [place] [address]- 0407 Nov, [facility] [address] [id number] [place] [address]- 7795 Nov, [facility] [address] [id number] [place] [address]- 5338 Nov, [facility] [address] [id number] [place] [address]- 0031 Nov, [facility] [address] [id number] [place] [address]- 8958 Nov, [facility] [place] [facility] [address] [id number] [place] [address]- 3317 Nov, [facility] [address] [id number] [place] [address]- 8606 Nov, [facility] [place] [facility] [address] [id number] [place] [address]- 5819 Nov, [facility] [place] [facility] [address] [id number] [place] [address]- 3557 Nov, [facility] [place] [facility] [address] [id number] [place] [address]- 6152 Oct, [facility] [place] [facility] [address] [id number] [place] [address]- 5919 31 Oct, 2014 [facility] [place] [facility] [address] [id number] [place] [address]- 5901 30 Oct, 2014 [facility] [place] [facility] [address] [id number] [place] [address]- 0542 30 Oct, 2014 [facility] [place] [facility] [address] [id number] [place] [address]- 5584 Oct, [facility] [place] [facility] [address] [id number] [place] [address]- 5926 29 Oct, 2014 [facility] [place] [facility] [address] [id number] [place] [address]- 9893 Oct, [facility] [place] [facility] [address] [id number] [place] [address]- 4002 Oct, [facility] [place] [facility] [address] [id number] [place] [address]- 1707 17 Oct, 2014 [facility] [place] [facility] [address] [id number] [place] [address]- 2990 17 Oct, 2014 [facility] [place] [facility] [address] [id number] [place] [address]- 1097 16 Oct, 2014 [facility] [place] [facility] [address] [id number] [place] [address]- 7741 16 Oct, 2014 [facility] [place] [facility] [address] [id number] [place] [address]- 4670 15 Oct, 2014 [facility] [place] [facility] [address] [id number] [place] [address]- 6324 15 Oct, 2014 [facility] [place] [facility] [address] [id number] [place] [address]- 1697 08 Oct, 2014 [facility] [place] [facility] [address] [id number] [place] [address]- 0520 24 Sep, 2014 [facility] [place] [facility] [address] [id number] [address]- 5234 Sep, [facility] [place] [facility] [address] [id number] [place] [address]- 3561 Sep, [facility] [place] [facility] [address] [id number] [place] [address]- 8327 Sep, [facility] [place] [facility] [address] [facility] [id number] [place] [address]- 2633 Aug, [facility] [place] [facility] [address] [id number] [place] [address]- 5594 Aug, [facility] [place] [facility] [address] [id number] [place] [address]- 9978 Aug, [facility] [place] [facility] [address] [id number] [place] [address]- 1431 Aug, [facility] [place] [facility] [address] [facility] [id number] [place] [address]- 2695 Aug, [facility] [place] [facility] [address] [facility] [id number] [place] [address]- 2645 Aug, [facility] [place] [facility] [address] [facility] [id number] [place] [address]- 1305 29 Jul, 2014 [facility] [place] [facility] [address] [facility] [id number] [place] [address]- 1356 29 Jul, 2014 [facility] [place] [facility] [address] [facility] [id number], [place] [address]- 4019 15 Jul, 2014 [facility] [place] [facility] [address] [id number], [place] [address]- 0006 15 Jul, 2014 [facility] [place] [facility] [address] [id number] [place] [address]- 1286 08 Jul, 2014 [facility] [place] [facility] [address] [facility] [id number] [place] [address]- 0694 08 Jul, 2014 [facility] [place] [facility] [address] [facility] [id number] [place] [address]- 7302 Jun, [facility] [place] [facility] [address] [id number] [place] [address]- 7045 Jun, [facility] [place] [facility] [address] [id number] [place] [address]- 7356 Jun, [facility] [place] [facility] [address] [id number] [place] [address]- 5016 Jun, [facility] [place] [facility] [address] [id number] [place] [address]- 4556 Jun, [facility] [place] [facility] [address] [id number] [place] [address]- 5514 Jun, [facility] [place] [facility] [address] [id number] [place] [address]- 3620 Jun, [facility] [place] [facility] [address] [id number] [place] [address]- 2111 May, [facility] [place] [facility] [address] [id number] [place] [address]- 6010 May, [facility] [place] [facility] [address] [id number] [place] [address]- 6769 May, [facility] [place] [facility] [address] [id number] [place] [address]- 6119 May, [facility] [place] [facility] [address] [id number] [place] [address]- 5498 May, [facility] [place] [facility] [address] [id number] [place] [address]- 4412 May, [facility] [place] [facility] [address] [id number] [place] [address]- 2356 May, [facility] [place] [facility] [address] [id number] [place] [address]- 3794 May, [facility] [place] [facility] [address] [id number] [place] [address]- 0136 May, [facility] [place] [facility] [address] [id number] [place] [address]- 5810 May, [facility] [place] [facility] [address] [id number] [place] [address]- 2242 May, [facility] [place] [facility] [address] [id number] [place] [address]- 8071 May, [facility] [place] [facility] [address] [id number] [place] [address]- 4385 Apr, [facility] [place] [facility] [address] [id number] [place] [address]- 1385 Apr, [facility] [place] [facility] [address] [id number] [place] [address]- 1671 Apr, [facility] [place] [facility] [address] [id number] [place] [address]- 5327 Apr, [facility] [place] [facility] [address] [id number] [place] [address]- 4812 Apr, [facility] [place] [facility] [address] [id number] [place] [address]- 8668 Apr, [facility] [place] [facility] [address] [id number] [place] [address]- 5994 Apr, [facility] [place] [facility] [address] [id number] [place] [address]- 3136 Apr, [facility] [place] [facility] [address] [id number] [place] [address]- 2229 Apr, [facility] [place] [facility] [address] [id number] [place] [address]- 0231 Apr, [facility] [place] [facility] [address] [id number] [place] [address]- 1240 March, [facility] [place] [facility] [address] [id number] [place] [address]- 9165 March, [facility] [place] [facility] [address] [id number] [place] [address]- 3262 March, [facility] [place] [facility] [address] [id number] [place] [address]- 9534 March, [facility] [place] [facility] [address] [id number] [place] [address]- 2161 March, [facility] [place] [facility] [address] [id number] [place] 4438 March, [facility] [place] [facility] [address] [id number] [place] [address]- 3044 Feb, [facility] [place] [facility] [address] [id number] [place] [address]- 0130 Feb, [facility] [place] [facility] [address] [id number] [place] [address]- 7806 Feb, [facility] [place] [facility] [address] [id number] [place] [address]- 6200 Feb, [facility] [place] [facility] [address] [id number] [place] [address]- 6952 Feb, [facility] [place] [facility] [address] [id number] [place] [address]- 8645 Feb, [facility] [place] [facility] [address] [id number] [place] [address]- 6184 Feb, [facility] [place] [facility] [address] [id number] [place] [address]- 2542 Feb, [facility] [place] [facility] [address] [id number] [place] [address]- 5955 Feb, [facility] [place] [facility] [address] [id number] [place] [address] Feb, [facility] [place] [facility] [address] [id number] [place] [address] Jan, [facility] [place] [facility] [address] [id number] [place] [address] Jan, [facility] [place] [facility] [address] [id number] [place] [address] Jan, [facility] [place] [facility] [address] [id number] [place] [address] Jan, [facility] [place] [facility] [address] [id number] [place] [address] Jan, [facility] [place] [facility] [address] [id number] [place] [address] Jan, [facility] [place] [facility] [address] [id number] [place] [address] Jan, [facility] [place] [facility] [address] [id number] [place] [address] Jan, [facility] [place] [facility] [address] [id number] [place] [address] Dec, [facility] [place] [facility] [address] [id number] [place] [address] Dec, [facility] [place] [facility] [address] [id number] [place] [address]677 Dec, [facility] [place] [facility] [address] [id number] [place] [address] Dec, [facility] [place] [facility] [address] [id number] [place] [address] Dec, [facility] [place] [facility] [address] [id number] [place] [address] Dec, [facility] [place] [facility] [address] [id number] [place] [address] Dec, [facility] [place] [facility] [address] [id number] [place] [address] Dec, [facility] [place] [facility] [address] [id number] [place] [address]28 Nov, [facility] [place] [facility] [address] [id number] [place] [address] Nov, [facility] [place] [facility] [address] [id number] [place] [address] Nov, [facility] [address] [id number] [place] [address] Nov, [facility] [place] [facility] [address] [id number] [place] [address] Nov, [facility] [place] [facility] [address] [id number] [place] [address]782 Nov, [facility] [place] [facility] [address] [id number] [place] [address] Nov, [facility] [place] [facility] [address] [id number] [place] [address] Nov, [facility] [place] [facility] [address] [id number] [place] [address]- [address] Nov, [facility] [place] [facility] [address] [id number] [place] [address]- [address] Nov, [facility] [place] [facility] [address] [id number] [place] [address] Nov, [facility] [place] [facility] [address] [id number] [place] [address]87 Oct, [facility] [place] [facility] [address] [id number] [place] [address] Oct, [facility] [place] [facility] [address] [id number] [place] [address] Oct, [facility] [place] [facility] [address] [id number] [place] [address] Oct, [facility] [place] [facility] [address] [id number] [place] [address] Sep, [facility] [place] [facility] [address] [id number] [place] [address] Sep, [facility] [place] [facility] [address] [id number] [place] [address]226 Sep, [facility] [place] [facility] [address] [id number] [place] [address] Sep, [facility] [place] [facility] [address] [id number] [place] [address] Aug, [facility] [place] [facility] [address] [id number] [place] [address] Aug, [facility] [place] [facility] [address] [id number] [place] [address] Aug, [facility] [place] [facility] [address] [id number] [place] [address]98 Aug, [facility] [place] [facility] [address] [id number] [place] [address] 18[address] Aug, [facility] [place] [facility] [address] [id number] [place] [address] Aug, [facility] [place] [facility] [address] [id number] [place] [address] 1996 Aug, [facility] [place] [facility] [address] [id number] [place] [address] Aug, [facility] [place] [facility] [address] [id number] [place] [address] 28 Jul, 2013 [facility] [place] [facility] [address] [id number] [place] [address] 27 Jul, 2013 [facility] [place] [facility] [address] [id number] [place] [address]- [address] 26 Jul, 2012 [facility] [place] [facility] [address] [id number] [place] [address] 24 Jul, 2013 [facility] [place] [facility] [address] [id number] [place] [address]- [address] 24 Jul, 2012 [facility] [place] [facility] [address] [id number] [place] [address]- [address] 23 Jul, 2012 [facility] [place] [facility] [address] [id number] [place] [address]- [address] 19 Jul, 2012 [facility] [place] [facility] [address] [id number] [place] [address]- 9874 18 Jul, 2012 [facility] [place] [facility] [address] [id number] [place] [address] 7416 17 Jul, 2012 [facility] [place] [facility] [address] [id number] [place] [address] 2546 16 Jul, 2012 [facility] [place] [facility] [address] [id number] [place] [address] 7278 13 Jul, 2012 [facility] [place] [facility] [address] [id number] [place] [address] 2369 13 Jul, 2012 [facility] [place] [facility] [address] [id number] [place] [address]- 0559 12 Jul, 2012 [facility] [place] [facility] [address] [id number] [place] [address]- 1269 11 Jul, 2012 [facility] [place] [facility] [address] [id number] [place] [address]- 7468 04 Jul, 2013 [facility] [place] [facility] [address] [id number] [place] [address]- 8084 30 Jun, 2013 [facility] [place] [facility] [address] [id number] [place] [address]- 8211 Jun, [facility] [place] [facility] [address] [id number] [place] [address]- 8267 Jun, [facility] [place] [facility] [address] [id number] [place] [address]- 2809 May, [facility] [place] [facility] [address] [id number] [place] [address]- 7806 May, [facility] [place] [facility] [address] [id number] [place] [address]- 5792 May, [facility] [place] [facility] [address] [id number] [place] [address]- 3922 May, [facility] [place] [facility] [address] [id number] [place] [address]- 3363 10 Apr, 2013 [facility] [address] [id number] [place] [address]- 0349 Apr, [facility] [address] [id number] [place] [address]- 6592 Apr, [facility] [address] [id number] [place] [address]- 3040 Apr, [facility] [address] [id number] [place] [address]- 5565 March, [facility] [address] [id number] [place] [address]- 0966 March, [facility] [address] [id number] [place] [address]- 7028 March, [facility] [address] [id number] [place] [address]- 6035 Feb, [facility] [address] [id number] [place] [address]- 2307 Feb, [facility] [address] [id number] [place] [address]- 3465 Jan, [facility] [address] [id number] [place] [address]- 6934 Jan, [facility] [address] [id number] [place] [address]- 7654 Jan, [facility] [address] [id number] [place] [address]- 8974 Jan, [facility] [address] [id number] [place] [address]- 9010 Jan, [facility] [address] [id number] [place] [address]- 8010 Dec, [facility] [address] [id number] [place] [address]- 9867 Dec, [facility] [address] [id number] [place] [address]- 1271 Dec, [facility] [place] [facility] [address] [id number] [place] [address]- 8671 Dec, [facility] [place] [facility] [address] [id number] [place] [address] Dec, [facility] [place] [facility] [address] [id number] [place] [address]- 3886 Dec, [facility] [place] [facility] [address] [id number] [place] [address]- 3666 Dec, [facility] [place] [facility] [address] [id number] [place] [address]- 7037 Dec, [facility] [place] [facility] [address] [id number] [place] [address]- 8672 Nov, [facility] [place] [facility] [address] [id number] [place] [address]- 8492 Nov, [facility] [place] [facility] [address] [id number] [place] [address]- 5617 Nov, [facility] [place] [facility] [address] [id number] [place] [address]- 2709 Nov, [facility] [place] [facility] [address] [id number] [place] [address] 1931 Nov, [facility] [place] [facility] [address] [id number] [place] [address]- 7613 Nov, [facility] [place] [facility] [address] [id number] [place] [address]- 9103 Nov, [facility] [place] [facility] [address] [id number] [place] [address]- 5156 Oct, [facility] [place] [facility] [address] [id number] [place] [address]- 9135 Oct, [facility] [place] [facility] [address] [id number] [place] [address]- 1027 Oct, [facility] [address] [id number] [place] [address]- 3751 Oct, [facility] [place] [facility] [address] [id number] [place] [address]- 7576 Oct, [facility] [address] [id number] [place] [address]- 7146 Oct, [facility] [place] [facility] [address] [id number] [place] [address]- 6498 Oct, [facility] [address] [id number] [place] [address]- 4465 Oct, [facility] [place] [facility] [address] [id number] [place] [address]- 4692 Sep, [facility] [place] [facility] [address] [id number] [place] [address]- 6036 Sep, [facility] [place] [facility] [address] [id number] [place] [address]- 2112 Sep, [facility] [place] [facility] [address] [id number] [place] [address]- 0829 Sep, [facility] [address] [id number] [place] [address]- 0738 Sep, [facility] [place] [facility] [address] [id number] [place] [address]- 2246 Sep, [facility] [place] [facility] [address] [id number] [place] [address]- 5850 Sep, [facility] [place] [facility] [address] [id number] [place] [address]- 7830 Sep, [facility] [place] [facility] [address] [id number] [place] [address]- 8704 Sep, [facility] [place] [facility] [address] [id number] [place] [address]- 7637 Sep, [facility] [place] [facility] [address] [id number] [place] [address]- 5659 Sep, [facility] [place] [facility] [address] [id number] [place] [address]- 7635 Sep, [facility] [place] [facility] [address] [id number] [place] [address]- 2702 Sep, [facility] [place] [facility] [address] [id number] [place] [address]- 5357 Sep, [facility] [place] [facility] [address] [id number] [place] [address]- 7826 Sep, [facility] [place] [facility] [address] [id number] [place] [address]- 2659 Sep, [facility] [place] [facility] [address] [facility] [id number] [place] [address]- 6228 Sep, [facility] [place] [facility] [address] [id number] [address]- 9282 Sep, [facility] [place] [facility] [address] [facility] [id number], [place] [address]- 0939 Sep, [facility] [place] [facility] [address] [facility] [id number][place] [address]- 1517 Sep, [facility] [place] [facility] [address] [facility] [id number], [place] [address]- 8878 Aug, [facility] [place] [facility] [address] [id number][place] [address]- 4953 Aug, [facility] [place] [facility] [address] [facility] [id number], [place] [address]- 6119 Aug, [facility] [place] [facility] [address] [facility] [id number], [place] [address]- 6368 Aug, [facility] [place] [facility] [address] [facility] [id number], [place] [address]- 8080 Aug, [facility] [place] [facility] [address] [id number], [place] [address]- 5305 18 Aug, 2012 [facility] [place] [facility] [address] [id number] [place] [address]- 9779 18 Aug, 2012 [facility] [place] [facility] [address] [id number] [place] [address]- 4716 17 Aug, 2012 [facility] [place] [facility] [address] [id number] [place] [address]- 0402 16 Aug, 2012 [facility] [place] [facility] [address] [id number] [place] [address]- 9061 16 Aug, 2012 [facility] [place] [facility] [address] [id number] [place] [address]- 7311 15 Aug, 2012 [facility] [place] [facility] [address] [id number] [place] [address]- 0895 09 Aug, 2012 [facility] [place] [facility] [address] [facility] [id number] [place] [address]- 9575 05 Aug, 2012 [facility] [place] [facility] [address] [facility] [id number] [place] [address]- 3302 05 Aug, 2012 [facility] [place] [facility] [address] [facility] [id number] [place] [address]- 1298 04 Aug, 2012 [facility] [place] [facility] [address] [facility] [id number] [place] [address]- 3916 14 Jul, 2012 [facility] [place] [facility] [address] [facility] [id number] [place] [address]- 4894 10 Jul, 2012 [facility] [place] [facility] [address] [facility] [id number] [place] [address]- 5514 Jun, [facility] [place] [facility] [address] [id number] [place] [address]- 4510 Jun, [facility] [place] [facility] [address] [facility] [id number] [place] [address]- 3603 May, [facility] [place] [facility] [address] [facility] [id number] [place] [address]- 0938 May, [facility] [place] [facility] [address] [id number] [place] [address]- 8624 24 May, 2012 [facility] [place] [facility] [address] [id number] [place] [address]- 4723 May, [facility] [place] [facility] [address] [id number] [place] [address]- 6046 May, [facility] [place] [facility] [address] [id number] [place] [address]- 9296 May, [facility] [place] [facility] [address] [id number] [place] [address]- 9552 Apr, [facility] [place] [facility] [address] [id number] [place] [address]- 5116 Apr, [facility] [place] [facility] [address] [id number] [place] [address]- 6528 March, [facility] [place] [facility] [address] [id number] [place] [address]- 5687 March, [facility] [address] [id number] [place] [address]- 2778 March, [facility] [place] [facility] [address] [id number] [place] [address]- 3290 March, [facility] [place] [facility] [address] [id number] [place] [address]- 8135 March, [facility] [place] [facility] [address] [id number] [place] [address]- 4504 March, [facility] [place] [facility] [address] [id number] [place] [address]- 2105 Feb, [facility] [place] [facility] [address] [id number] [place] [address]- 0294 Feb, [facility] [place] [facility] [address] [id number] [place] [address]- 2454 Feb, [facility] [place] [facility] [address] [id number] [place] [address]- 5156 25 Feb, 2012 [facility] [place] [facility] [address] [id number] [place] [address]- 2400 23 Feb, 2012 [facility] [place] [facility] [address] [id number] [place] [address]- 0079 19 Feb, 2012 [facility] [place] [facility] [address] [id number] [place] [address]- 7890 Feb, [facility] [place] [facility] [address] [id number] [place] [address]- 5850 Feb, [facility] [place] [facility] [address] [id number] [place] [address]- 2607 04 Feb, 2012 [facility] [place] [facility] [address] [id number] [place] [address]- 8848 30 Jan, 2012 [facility] [place] [facility] [address] [id number] [place] [address]- 5820 Jan, [facility] [place] [facility] [address] [id number] [place] [address]- 0955 Jan, [facility] [place] [facility] [address] [id number] [place] [address]- 8488 Jan, [facility] [place] [facility] [address] [id number] [place] [address]- 6919 Jan, [facility] [place] [facility] [address] [id number] [place] [address]- 2153 Jan, [facility] [place] [facility] [address] [id number] [place] [address]- 7440 14 Jan, 2012 [facility] [place] [facility] [address] [id number] [place] [address]- 5766 Jan, [facility] [place] [facility] [address] [id number] [place] [address]- 1242 09 Jan, 2012 [facility] [place] [facility] [address] [id number] [place] [address]- 2158 08 Jan, 2012 [facility] [place] [facility] [address] [id number] [place] [address]- 4403 07 Jan, 2012 [facility] [place] [facility] [address] [id number] [place] [address]- 7586 Jan, [facility] [place] [facility] [address] [id number] [place] [address]- 6976 Jan, [facility] [place] [facility] [address] [id number] [place] [address]- 9136 Jan, [facility] [place] [facility] [address] [id number] [place] [address]- 3266 Dec, [facility] [place] [facility] [address] [id number] [place] [address]- 9426 Dec, [facility] [place] [facility] [address] [id number] [place] [address]- 1786 Dec, [facility] [place] [facility] [address] [id number] [place] [address]- 4928 Dec, [facility] [place] [facility] [address] [id number] [place] [address]- 5852 16 Dec, 2011 [facility] [place] [facility] [address] [id number] [place] [address]- 6474 Dec, [facility] [place] [facility] [address] [facility] [id number] [place] [address]- 2691 Dec, [facility] [place] [facility] [address] [facility] [id number] [place] [address]- 2966 Dec, [facility] [place] [facility] [address] [id number] [place] [address] 2542 Dec, [facility] [place] [facility] [address] [id number] [place] [address]- 5090 Nov, [facility] [place] [facility] [address] [id number] [place] [address]- 6986 Nov, [facility] [place] [facility] [address] [id number] [place] [address]- 3958 Nov, [facility] [place] [facility] [address] [id number] [place] [address]- 0121 Nov, [facility] [place] [facility] [address] [id number] [place] [address]- 9134 Oct, [facility] [place] [facility] [address] [id number] [place] [address]- 3686 Oct, [facility] [place] [facility] [address] [id number] [place] [address]- 3144 Oct, [facility] [place] [facility] [address] [id number] [place] [address]- 5448 Oct, [facility] [place] [facility] [address] [id number] [place] [address]- 6800 Oct, [facility] [place] [facility] [address] [id number] [place] [address]- 1114 Oct, [facility] [place] [facility] [address] [id number] [place] [address]- 9521 Oct, [facility] [place] [facility] [address] [id number] [place] [address]- 3888 Sep, [facility] [place] [facility] [address] [id number] [place] [address]- 9105 Sep, [facility] [place] [facility] [address] [id number], [place] [address]- 1855 Sep, [facility] [place] [facility] [address] [id number], [place] [address]- 4962 Sep, [facility] [place] [facility] [address] [id number] [place] [address]- 6886 Sep, [facility] [place] [facility] [address] [id number], [place] [address]- 8190 Sep, [facility] [place] [facility] [address] [id number], [place] [address]- 4807 Sep, [facility] [place] [facility] [address] [id number] [place] [address]- 2958 Sep, [facility] [address] [id number] [place] [address]- 5748 Sep, [facility] [place] [facility] [address] [id number] [place] [address]- 4706 30 Aug, 2011 [facility] [place] [facility] [address] [id number] [place] [address]- 1206 Aug, [facility] [place] [facility] [address] [id number] [place] [address] 2546 Aug, [facility] [place] [facility] [address] [id number] [place] [address], [place] [address]- 2238 May, [facility] [place] [facility] [address] [id number] [place] [address]- 8982 Nov, [facility] [place] [facility] [address] [id number] [place] [address]- 0848 31 Oct, 2010 [facility] [place] [facility] [address] [id number] [place] [address]- 3247 30 Oct, 2010 [facility] [place] [facility] [address] [id number] [place] [address]- 2928 30 Oct, 2010 [facility] [place] [facility] [address] [facility] [id number] [place] [address]- 6627 Oct, [facility] [place] [facility] [address] [id number] [place] [address] 2546 Oct, [facility] [place] [facility] [address] [id number] [place] [address] 254 Sep, [facility] [place] [facility] [address] [id number] [place] [address]- 9347 02 Sep, 2010 [facility] [place] [facility] [address] [facility] [id number] [place] [address] 2546 14 Jul, 2010 [facility] [place] [facility] [address] [id number] [place] [address] 2547 Oct, [facility] [address]005[address] [address]- 0989 Oct, [facility] [id number] [place] [address]- 8960 Oct, [facility] [id number] [address]- 5226 Oct, [facility] [id number] [place] [address] 733[address]- 9289 Sep, [facility] [id number] [place] [address] 17457- 0969 Sep, [facility] [id number] [place] [address] 835[address]- 5241 Sep, [facility] [id number] [place] [address] 676[address]- 9803 Sep, [facility] [id number] [place] [address] 43942- 0304 Sep, [facility] [id number] [place] [address] 43026- 1700 Jul, [facility] [id number] [place] [address] 626[address]- 2236 Apr, [facility] [address] [address]- 8974 Dec, IMMUNIZATIONS No Known Immunizations SOCIAL HISTORY Never Assessed REASON FOR VISIT Chest pains- non cardiac- Calixto Cardoza RN, Wants to discuss a medication to stop smoking, Phq2, AUDIT C PLAN OF CARE Activity Details Follow Up 3 Months Reason: VITAL SIGNS Height 67 in 2018-04-06 Weight 187 lbs 2018-04-06 Temperature 98.3 degrees Fahrenheit 2018-04-06 Heart Rate 72 bpm 2018-04-06 Respiratory Rate 18 2018-04-06 BMI 29.29 kg/m2 2018-04-06 Blood pressure systolic 132 mmHg 2018-04-06 Blood pressure diastolic 78 mmHg 2018-04-06 MEDICATIONS Medication Instructions Dosage Frequency Start Date [...] needed PRN shortness of breath/cough March, Active Amlodipine Besylate 5 MG Orally Once a day 1 tablet 24h Active Gabapentin 600 MG Orally Once a day 1 capsule before bedtime 24h Active Protonix 40 MG Orally Once a day 1 tablet 24h Jan, 30 day(s) Active Levothyroxine Sodium 50 MCG TAKE ONE TABLET BY MOUTH DAILY 90 Active Prozac 40 mg Orally Once a day 1 capsule 24h Jan, 30 day(s) Active Atorvastatin Calcium 40 MG TAKE ONE TABLET BY MOUTH DAILY 90 Active RESULTS Name Result Date Reference Range URINE DRUG SCREEN (IN HOUSE) 2018-04-06 Lot # [id number] Exp date 07/2019 Control + COCAINE Negative AMPH Negative MTD Negative THC Negative OPIATE Negative BENZO Negative PCP Negative BAR Negative OXY Negative MAMP Negative BUP Negative MDMA Negative TCA Negative PROCEDURES Procedure Date Ordered Result Body Site DRUG TEST PRSMV DIR OPT OBS April 06, 2018 INSTRUCTIONS MEDICATIONS ADMINISTERED No Known Medications MEDICAL (GENERAL) HISTORY Type Description Date Medical History hypertension Medical History hyperlipidemia Medical History diabetes type II Medical History COPD Medical History asthma Surgical History hysterectomy Surgical History arthritis surgery Hospitalization History surgeries
--- OUTSIDE RECORDS SUMMARY | 2018-11-26 16:09 | XMS REPORT ---
Author Author KING FISHMAN Organization [facility] Address [address] [place] [address] Care Team Providers Care Plugger Worker Name Role Phone KING FISHMAN Unavailable PROBLEMS Type Condition ICD9-CM Code JES62-YU Code Onset Dates Condition Status SNOMED Code Problem Essential hypertension I10 Active 66218349 Problem Lumbago with sciatica, left side M54.42 Active 233707376 Problem Acquired hypothyroidism E03.9 Active 099465924 Problem Prediabetes R73.03 Active 974550543 Problem Reactive depression F32.9 Active 98096704 Problem Mixed hyperlipidemia E78.2 Active 830910051 Problem Pain in right ankle and joints of right foot M25.571 Active 39529561241298 Problem Chronic obstructive pulmonary disease, unspecified COPD type J44.9 Active 99213528 Problem Gastroesophageal reflux disease, esophagitis presence not specified K21.9 Active 400259950 Problem Lumbago with sciatica, right side M54.41 Active 10311296158598402 Problem Cigarette nicotine dependence without complication F17.210 Active 50633884 Problem Other chronic pain G89.29 Active 82093315 ALLERGIES No Information ENCOUNTERS Encounter Location Date Diagnosis [facility] [id number] [place] [address] 57078- 5527 Jul, [facility] [id number] [place] [address] 52763- 1427 Jun, [facility] [id number] [place] [address] 35144- 8005 May, Pain in thoracic spine M54.6 [facility] [address] [place] [address] 07544- 8378 May, [facility] [id number] [place] [address] 17016- 4026 May, [facility] [id number] [place] [address] 63192- 7429 May, [facility] [id number] [place] [address] 44253- 6074 May, Acute non-recurrent frontal sinusitis J01.10 and Dermatitis L30.9 [facility] [id number] [place] [address] 30990- 1626 May, [facility] [id number] [place] [address] 95907- 8898 May, Pain in thoracic spine M54.6 [facility] [id number] [place] [address] 42953- 7876 May, [facility] [id number] [place] [address] 55087- 0364 May, Acute nasopharyngitis J00 [facility] [id number] [place] [address] 19688- 6794 May, [facility] [id number] [place] [address] 59387- 9962 May, [facility] [id number] [place] [address] 26639- 5556 Apr, [facility] [id number] [place] [address] 50972- 1650 Apr, [facility] [id number] [place] [address] 49360- 7073 Apr, [facility] [id number] [place] [address] 02333- 4011 Apr, [facility] [id number] [place] [address] 42930- 5553 Apr, Pain in right ankle and joints of right foot M25.571 [facility] [id number] [place] [address] 87426- 6243 Apr, [place] [id number] [place] [address] 36635- 1199 Apr, Bronchitis J40 ; Pain in right ankle and joints of right foot M25.571 ; Other chronic pain G89.29 ; Prediabetes R73.03 ; Chronic obstructive pulmonary disease, unspecified COPD type J44.9 and Cigarette nicotine dependence without complication F17.[address] [facility] [address] [address] -4074 Apr, Seasonal allergic rhinitis, unspecified trigger J30.2 [place] [address] 43262- 4445 Apr, Onychomycosis B35.1 ; Onychocryptosis L60.0 and DM 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 [place] [address] 18481- 0926 Apr, Reactive depression F32.9 ; Thoracic myofascial strain, initial encounter S29.019A and Leg cramps R25.2 [place] [address] 87334- 3374 March, [place] [address] 04212- 5733 March, Type 2 diabetes mellitus with hyperglycemia E11.65 [place] [id number] [place] [address] 11051- 3622 March, Reactive depression F32.9 [place] [address] 08652- 5579 March, Pain in thoracic spine M54.6 and Other chronic pain G89.29 [place] [address] 12755- 5839 Feb, [place] [address] 47038- 9894 Jan, Reactive depression F32.9 ; Essential hypertension I10 ; Gastroesophageal reflux disease, esophagitis presence not specified K21.9 ; Lumbago with sciatica, left side M54.42 and Lumbago with sciatica, right side M54.41 [place] [address] 20901- 3958 Jan, Reactive depression F32.9 and Pharyngoesophageal dysphagia R13.14 [place] [address] 83060- 2015 Jan, [place] [address] 52325- 1303 Jan, Encounter for immunization Z23 [address] 30895- 3474 Jan, Onychomycosis B35.1 and DM 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 [place] [address] 88708- 6824 Jan, [place] [address] 56427- 1616 Jan, Prediabetes R73.03 [place] [address] 74049- 3354 Dec, [place] [address] 00649- 8242 Dec, Essential hypertension I10 ; Mixed hyperlipidemia E78.2 ; Acquired hypothyroidism E03.9 ; Reactive depression F32.9 and Prediabetes R73.03 [place] [address] 81506- 9389 Dec, [place] [address] 00655- 3144 Dec, [place] [address] 46171- 6971 Dec, DM 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 [facility] [address] 73799 -8891 Dec, Bruise T14.8XXA ; Type 2 diabetes mellitus with hyperglycemia E11.65 and senior living current use of insulin Z79.4 [facility] [id number] [place] [address] 38357- 8665 Oct, [facility] [id number] [place] [address] 21784- 2751 March, Onychomycosis B35.1 and DM 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 [facility] [id number] [place] [address] 63504- 3076 Jun, [facility] [id number] [place] [address] 98629- 3498 Jun, [facility] [id number] [place] [address] 08375- 1205 Jun, COPD with acute exacerbation 491.21 [facility] [id number] [place] [address] 62124- 4546 Apr, [facility] [id number] [place] [address] 31346- 4630 Feb, [facility] [id number] [place] [address] 55478- 7449 Feb, [facility] [id number] [place] [address] 40685- 9506 Jan, [facility] [id number] [place] [address] 95966- 0118 Jan, [facility] [address] [place] [address] 63497- 8947 Jan, [facility] [id number] [place] [address] 87645- 6400 Jan, [facility] [address] [place] [address] 96796- 9580 Jan, [facility] [id number] [place] [address] 22211- 6161 23 Jan, 2014 [facility] [place] [facility] [address] [id number] [place] [address]- 9747 23 Jan, 2014 [facility] [place] [facility] [address] [id number] [place] [address]- 7488 23 Jan, 2014 [facility] [place] [facility] [address] [id number] [place] [address]- 7135 23 Jan, 2014 [facility] [place] [facility] [address] [id number] [place] [address]- 5358 19 Jan, 2014 [facility] [place] [facility] [address] [id number] [place] [address]- 3248 19 Jan, 2014 [facility] [place] [facility] [address] [id number] [place] [address]- 7224 18 Jan, 2014 [facility] [place] [facility] [address] [id number] [place] [address]- 4377 18 Jan, 2015 [facility] [place] [facility] [address] [id number] [place] [address]- 3772 16 Jan, 2014 [facility] [place] [facility] [address] [id number] [place] [address]- 5058 16 Jan, 2014 [facility] [place] [facility] [address] [id number] [place] [address]- 0797 16 Jan, 2014 [facility] [place] [facility] [address] [id number] [place] [address]- 7334 16 Jan, 2014 [facility] [place] [facility] [address] [id number] [place] [address]- 1103 15 Jan, 2014 [facility] [place] [facility] [address] [id number] [place] [address]- 8139 13 Jan, 2014 [facility] [place] [facility] [address] [id number] [place] [address]- 6391 13 Jan, 2014 [facility] [place] [facility] [address] [id number] [place] [address]- 0444 13 Jan, 2014 [facility] [place] [facility] [address] [id number] [place] [address]- 5957 13 Jan, 2014 [facility] [place] [facility] [address] [id number] [place] [address]- 5175 12 Jan, 2015 [facility] [place] [facility] [address] [id number] [place] [address]- 6354 Jan, [facility] [place] [facility] [address] [id number] [place] [address]- 6414 04 Jan, 2015 [facility] [place] [facility] [address] [id number] [place] [address]- 1264 24 Dec, 2014 [facility] [place] [facility] [address] [id number] [place] [address]- 0185 24 Dec, 2014 [facility] [place] [facility] [address] [facility] [id number] [place] [address]- 5337 24 Dec, 2014 [facility] [place] [facility] [address] [id number] [place] [address]- 1003 24 Dec, 2014 [facility] [place] [facility] [address] [id number] [place] [address]- 3258 23 Dec, 2014 [facility] [place] [facility] [address] [facility] [id number] [place] [address]- 5307 23 Dec, 2014 [facility] [place] [facility] [address] [facility] [id number] [place] [address]- 0701 20 Dec, 2014 [facility] [place] [facility] [address] [id number] [place] [address]- 3391 20 Dec, 2014 [facility] [place] [facility] [address] [id number] [place] [address]- 7393 19 Dec, 2014 [facility] [place] [facility] [address] [id number] [place] [address]- 1926 19 Dec, 2014 [facility] [place] [facility] [address] [facility] [id number] [place] [address]- 3915 16 Dec, 2014 [facility] [place] [facility] [address] [facility] [id number] [place] [address]- 4219 16 Dec, 2014 [facility] [address] [id number] [place] [address]- 8948 Nov, [facility] [place] [facility] [address] [id number] [place] [address]- 8488 Nov, [facility] [place] [facility] [address] [id number] [place] [address]- 5264 Nov, [facility] [place] [facility] [address] [id number] [place] [address]- 6370 Nov, [facility] [place] [facility] [address] [id number] [place] [address]- 2045 Nov, [facility] [place] [facility] [address] [id number] [place] [address]- 7938 Nov, [facility] [place] [facility] [address] [id number] [place] [address]- 0830 Nov, [facility] [place] [facility] [address] [id number] [place] [address]- 7246 Nov, [facility] [place] [facility] [address] [id number] [place] [address]- 2584 Nov, [facility] [place] [facility] [address] [id number] [place] [address]- 4321 Nov, [facility] [place] [facility] [address] [id number] [place] [address]- 6282 Nov, [facility] [place] [facility] [address] [id number], [place] [address]- 4950 Nov, [facility] [place] [facility] [address] [id number] [place] [address]- 2774 Oct, [facility] [place] [facility] [address] [id number] [place] [address]- 2535 Oct, [facility] [place] [facility] [address] [id number] [place] [address]- 1754 Oct, [facility] [place] [facility] [address] [id number] [place] [address]- 7362 30 Oct, 2014 [facility] [place] [facility] [address] [id number] [place] [address]- 2626 Oct, [facility] [place] [facility] [address] [id number] [place] [address]- 6096 Oct, [facility] [place] [facility] [address] [id number] [place] [address]- 7724 Oct, [facility] [place] [facility] [address] [id number] [place] [address]- 0157 Oct, [facility] [place] [facility] [address] [id number] [place] [address]- 3635 Oct, [facility] [place] [facility] [address] [id number] [place] [address]- 9656 17 Oct, 2014 [facility] [place] [facility] [address] [id number] [place] [address]- 6096 16 Oct, 2014 [facility] [place] [facility] [address] [id number] [place] [address]- 0259 16 Oct, 2014 [facility] [place] [facility] [address] [id number] [place] [address]- 4629 15 Oct, 2014 [facility] [place] [facility] [address] [id number] [place] [address]- 0628 15 Oct, 2014 [facility] [place] [facility] [address] [id number] [place] [address]- 1765 08 Oct, 2014 [facility] [place] [facility] [address] [id number] [place] [address]- 4106 24 Sep, 2014 [facility] [place] [facility] [address] [id number] [place] [address]- 9093 24 Sep, 2014 [facility] [place] [facility] [address] [id number] [place] [address]- 7238 Sep, [facility] [place] [facility] [address] [id number] [place] [address]- 2789 Sep, [facility] [place] [facility] [address] [id number] [place] [address]- 4736 Aug, [facility] [place] [facility] [address] [id number] [place] [address]- 3711 Aug, [facility] [place] [facility] [address] [id number] [place] [address]- 5292 Aug, [facility] [place] [facility] [address] [id number] [place] [address]- 9473 Aug, [facility] [place] [facility] [address] [id number] [place] [address]- 5536 Aug, [facility] [place] [facility] [address] [id number] [place] [address]- 5494 Aug, [facility] [place] [facility] [address] [id number] [place] [address]- 7756 29 Jul, 2014 [facility] [place] [facility] [address] [id number] [place] [address]- 6664 29 Jul, 2014 [facility] [place] [facility] [address] [id number] [place] [address]- 2890 15 Jul, 2014 [facility] [place] [facility] [address] [id number] [place] [address]- 2793 15 Jul, 2014 [facility] [place] [facility] [address] [id number], [place] [address]- 7204 08 Jul, 2014 [facility] [place] [facility] [address] [id number], [place] [address]- 0933 08 Jul, 2014 [facility] [place] [facility] [address] [id number] [place] [address]- 4674 Jun, [facility] [place] [facility] [address] [id number] [place] [address]- 8499 Jun, [facility] [place] [facility] [address] [id number] [place] [address]- 1337 Jun, [facility] [place] [facility] [address] [id number] [place] [address]- 6343 Jun, [facility] [place] [facility] [address] [id number] [place] [address]- 5781 Jun, [facility] [place] [facility] [address] [id number] [place] [address]- 1075 Jun, [facility] [place] [facility] [address] [id number] [place] [address]- 7922 Jun, [facility] [place] [facility] [address] [id number] [place] [address]- 8941 May, [facility] [place] [facility] [address] [id number] [place] [address]- 3180 May, [facility] [place] [facility] [address] [id number] [place] [address]- 3498 May, [facility] [place] [facility] [address] [id number] [place] [address]- 8096 May, [facility] [place] [facility] [address] [id number] [place] [address]- 0185 May, [facility] [place] [facility] [address] [id number] [place] [address]- 3914 May, [facility] [place] [facility] [address] [id number] [place] [address]- 8538 May, [facility] [place] [facility] [address] [id number] [place] [address]- 1127 May, [facility] [place] [facility] [address] [id number] [place] [address]- 3898 May, [facility] [place] [facility] [address] [id number] [place] [address]- 8333 May, [facility] [place] [facility] [address] [id number] [place] [address]- 1768 May, [facility] [place] [facility] [address] [id number] [place] [address]- 6803 May, [facility] [place] [facility] [address] [id number] [place] [address]- 3659 Apr, [facility] [place] [facility] [address] [id number] [place] [address]- 8317 Apr, [facility] [place] [facility] [address] [id number] [place] [address]- 8002 Apr, [facility] [place] [facility] [address] [id number] [place] [address]- 2665 Apr, [facility] [place] [facility] [address] [id number] [place] [address]- 0033 Apr, [facility] [place] [facility] [address] [id number] [place] [address]- 9292 Apr, [facility] [place] [facility] [address] [id number] [place] [address]- 5022 Apr, [facility] [place] [facility] [address] [id number] [place] [address]- 3869 Apr, [facility] [place] [facility] [address] [id number] [place] [address]- 6028 Apr, [facility] [place] [facility] [address] [id number] [place] [address]- 6960 Apr, [facility] [place] [facility] [address] [id number] [place] [address]- 0745 March, [facility] [place] [facility] [address] [id number] [place] [address]- 3788 March, [facility] [place] [facility] [address] [id number] [place] [address]- 1490 March, [facility] [place] [facility] [address] [id number] [place] [address]- 8166 March, [facility] [place] [facility] [address] [id number] [place] 4837 March, [facility] [place] [facility] [address] [id number] [place] [address]- 7849 March, [facility] [place] [facility] [address] [id number] [place] [address]- 9330 Feb, [facility] [place] [facility] [address] [id number] [place] [address]- 0456 Feb, [facility] [place] [facility] [address] [id number] [place] [address]- 8312 Feb, [facility] [place] [facility] [address] [id number] [place] [address]- 5789 Feb, [facility] [place] [facility] [address] [id number] [place] [address]- 8600 Feb, [facility] [place] [facility] [address] [id number] [place] [address]- 4876 Feb, [facility] [place] [facility] [address] [id number] [place] [address]- 1762 Feb, [facility] [place] [facility] [address] [id number] [place] [address]- 8775 Feb, [facility] [place] [facility] [address] [id number] [place] [address]- 6374 Feb, [facility] [place] [facility] [address] [id number] [place] [address]- 1231 Feb, [facility] [place] [facility] [address] [id number] [place] [address]- 1759 Jan, [facility] [place] [facility] [address] [id number] [place] [address]- 7375 Jan, [facility] [place] [facility] [address] [id number] [place] [address]- 4521 Jan, [facility] [place] [facility] [address] [id number] [place] [address]- 3599 Jan, [facility] [place] [facility] [address] [id number] [place] [address]- 8680 Jan, [facility] [place] [facility] [address] [id number] [place] [address]- 3848 Jan, [facility] [place] [facility] [address] [id number] [place] [address]- 3502 Jan, [facility] [place] [facility] [address] [id number] [place] [address] Jan, [facility] [place] [facility] [address] [id number] [place] [address] Dec, [facility] [place] [facility] [address] [id number] [place] [address] Dec, [facility] [place] [facility] [address] [id number] [place] [address] Dec, [facility] [place] [facility] [address] [id number] [place] [address] Dec, [facility] [place] [facility] [address] [id number] [place] [address] Dec, [facility] [place] [facility] [address] [id number] [place] [address] Dec, [facility] [place] [facility] [address] [facility] [id number] [place] [address] Dec, [facility] [place] [facility] [address] [id number] [place] [address] Dec, [facility] [place] [facility] [address] [id number] [place] [address] Nov, [facility] [place] [facility] [address] [id number] [place] [address] Nov, [facility] [place] [facility] [address] [id number] [place] [address] Nov, [facility] [place] [facility] [address] [id number] [place] [address] Nov, [facility] [place] [facility] [address] [id number], [place] [address] Nov, [facility] [place] [facility] [address] [id number] [place] [address] Nov, [facility] [place] [facility] [address] [id number] [place] [address] Nov, [facility] [place] [facility] [address] [id number] [place] [address] Nov, [facility] [place] [facility] [address] [id number] [place] [address] Nov, [facility] [place] [facility] [address] [id number] [place] [address] Nov, [facility] [place] [facility] [address] [id number] [place] [address] Nov, [facility] [place] [facility] [address] [id number] [place] [address] Oct, [facility] [place] [facility] [address] [id number] [place] [address] Oct, [facility] [place] [facility] [address] [id number] [place] [address] Oct, [facility] [place] [facility] [address] [facility] [id number] [place] [address] Oct, [facility] [place] [facility] [address] [id number], [place] [address] Sep, [facility] [place] [facility] [address] [id number], [place] [address] Sep, [facility] [place] [facility] [address] [id number] [place] [address] Sep, [facility] [place] [facility] [address] [id number] [place] [address] Sep, [facility] [place] [facility] [address] [id number] [place] [address] Aug, [facility] [place] [facility] [address] [id number] [place] [address] 28 Aug, 2012 [facility] [place] [facility] [address] [id number] [place] [address] Aug, [facility] [place] [facility] [address] [id number] [place] [address]- [address] Aug, [facility] [place] [facility] [address] [id number] [place] [address] Aug, 2012 [facility] [place] [facility] [address] [id number] [place] [address] Aug, [facility] [place] [facility] [address] [id number] [place] [address] Aug, [facility] [place] [facility] [address] [id number] [place] [address] Aug, [facility] [place] [facility] [address] [id number] [place] [address] 28 Jul, 2012 [facility] [place] [facility] [address] [id number] [place] [address] 27 Sep, 2012 [facility] [place] [facility] [address] [id number] [place] [address] 26 Sep, 2012 [facility] [place] [facility] [address] [id number] [place] [address]- [address] 24 Sep, 2012 [facility] [place] [facility] [address] [id number] [place] [address] 2548 24 Sep, 2012 [facility] [place] [facility] [address] [id number] [place] [address] 23 Sep, 2012 [facility] [place] [facility] [address] [id number] [place] [address] 2546 19 Sep, 2012 [facility] [place] [facility] [address] [id number] [place] [address]- [address] 18 Sep, 2012 [facility] [place] [facility] [address] [id number] [place] [address] 17 Sep, 2012 [facility] [place] [facility] [address] [id number] [place] [address]- [address] 16 Jul, 2012 [facility] [place] [facility] [address] [id number] [place] [address]- [address] 13 Jul, 2012 [facility] [place] [facility] [address] [id number] [place] [address]- [address] 13 Jul, 2012 [facility] [place] [facility] [address] [id number] [place] [address]- [address] 12 Jul, 2013 [facility] [place] [facility] [address] [id number] [place] [address]- [address] 11 Jul, 2013 [facility] [place] [facility] [address] [id number] [place] [address]- [address] 04 Jul, 2013 [facility] [place] [facility] [address] [id number] [place] [address] Jun, [facility] [place] [facility] [address] [id number] [place] [address] Jun, [facility] [place] [facility] [address] [id number] [place] [address]- [address] Jun, [facility] [place] [facility] [address] [id number] [place] [address] May, [facility] [place] [facility] [address] [id number] [place] [address] May, [facility] [place] [facility] [address] [id number], [place] [address] May, [facility] [place] [facility] [address] [id number] [place] [address] May, [facility] [place] [facility] [address] [id number] [place] [address] Apr, [facility] [place] [facility] [address] [id number] [place] [address]77 Apr, [facility] [place] [facility] [address] [id number] [place] [address] 08 Apr, 2013 [facility] [address] [id number] [place] [address] Apr, [facility] [address] [id number] [place] [address] March, [facility] [address] [id number] [place] [address] 7725 March, [facility] [place] [facility] [address] [id number] [place] [address] 6657 March, [facility] [address] [id number] [place] [address] 6[address] Feb, [facility] [address] [id number] [place] [address] 1846 Feb, [facility] [address] [id number] [place] [address] Jan, [facility] [address] [id number] [place] [address]- 1025 Jan, [facility] [address] [id number] [place] [address] 6807 Jan, [facility] [address] [facility] [id number] [place] [address] 4284 Jan, [facility] [address] [id number] [place] [address] 2900 Jan, [facility] [place] [facility] [address] [id number] [place] [address]- 1692 Dec, [facility] [place] [facility] [address] [id number] [place] [address]- 9723 Dec, [facility] [place] [facility] [address] [id number] [place] [address]- 8088 Dec, [facility] [place] [facility] [address] [id number] [place] [address]- 6998 Dec, [facility] [place] [facility] [address] [id number] [place] [address] 5714 18 Dec, 2012 [facility] [address] [id number] [place] [address]- 4692 Dec, [facility] [address] [id number] [place] [address]- 0636 Dec, [facility] [place] [facility] [address] [id number] [place] [address]- 3589 Dec, [facility] [address] [id number] [place] [address]- 0905 Nov, [facility] [address] [id number] [place] [address]- 2791 Nov, [facility] [address] [id number] [place] [address] 9907 Nov, [facility] [address] [id number] [place] [address]- 7001 Nov, [facility] [address] [id number] [place] [address] 9149 Nov, [facility] [address] [id number] [place] [address] 3022 Nov, [facility] [address] [id number] [place] [address]- 8399 Nov, [facility] [place] [facility] [address] [id number], [place] [address] 99[address] Oct, [facility] [place] [facility] [address] [id number] [place] [address] 3751 Oct, [facility] [place] [facility] [address] [id number] [place] [address]- 7656 Oct, [facility] [place] [facility] [address] [id number] [place] [address]- 4804 Oct, [facility] [place] [facility] [address] [id number] [place] [address]- 5790 05 Oct, 2012 [facility] [place] [facility] [address] [id number] [place] [address]- 1706 05 Oct, 2012 [facility] [place] [facility] [address] [id number] [place] [address]- 0096 Oct, [facility] [place] [facility] [address] [id number] [place] [address] 1866 Oct, [facility] [place] [facility] [address] [id number] [place] [address]- 2461 Sep, [facility] [place] [facility] [address] [id number] [place] [address] 6633 Sep, [facility] [place] [facility] [address] [id number] [place] [address] Sep, [facility] [place] [facility] [address] [id number] [place] [address] 7855 Sep, [facility] [place] [facility] [address] [id number] [place] [address]- 9676 Sep, [facility] [place] [facility] [address] [id number] [place] [address]- 6324 Sep, [facility] [place] [facility] [address] [facility] [id number] [place] [address]- 3763 Sep, [facility] [place] [facility] [address] [id number] [place] [address]- 8285 Sep, [facility] [place] [facility] [address] [id number], [place] [address]- 90[address] Sep, [facility] [place] [facility] [address] [id number] [place] [address]- 5554 Sep, [facility] [place] [facility] [address] [id number] [place] [address] 1801 Sep, [facility] [place] [facility] [address] [facility] [id number] [place] [address]- 3415 Sep, [facility] [place] [facility] [address] [id number] [place] [address]- 6544 Sep, [facility] [place] [facility] [address] [id number] [place] [address]- 8251 Sep, [facility] [place] [facility] [address] [id number] [place] [address]- 8620 Sep, [facility] [place] [facility] [address] [id number] [place] [address]- 2902 Sep, [facility] [place] [facility] [address] [id number] [place] [address]- 6673 Sep, [facility] [place] [facility] [address] [id number] [place] [address]- 3668 Sep, [facility] [place] [facility] [address] [id number] [place] [address]- 2010 Sep, [facility] [place] [facility] [address] [id number] [place] [address]- 8130 Sep, [facility] [place] [facility] [address] [id number] [place] [address] 0899 Aug, [facility] [place] [facility] [address] [id number] [place] [address] 4401 Aug, [facility] [place] [facility] [address] [facility] [id number] [place] [address]- 9154 Aug, [facility] [place] [facility] [address] [id number] [place] [address]- 5363 Aug, [facility] [place] [facility] [address] [id number] [place] [address]- 2927 Aug, [facility] [place] [facility] [address] [id number] [place] [address]- 0363 Aug, [facility] [place] [facility] [address] [id number] [place] [address]- 4896 Aug, [facility] [place] [facility] [address] [id number] [place] [address]- 5140 17 Aug, 2012 [facility] [place] [facility] [address] [id number] [place] [address]- 3749 16 Aug, 2012 [facility] [place] [facility] [address] [id number] [place] [address]- 0406 16 Aug, 2012 [facility] [place] [facility] [address] [id number] [place] [address]- 7933 15 Aug, 2012 [facility] [place] [facility] [address] [id number] [place] [address]- 2150 09 Aug, 2012 [facility] [place] [facility] [address] [id number] [place] [address]- 9086 Aug, [facility] [place] [facility] [address] [id number] [place] [address]- 8215 Aug, [facility] [place] [facility] [address] [id number] [place] [address]- 5617 Aug, [facility] [place] [facility] [address] [id number] [place] [address]- 1215 14 Jul, 2012 [facility] [place] [facility] [address] [id number] [place] [address]- 0264 10 Jul, 2012 [facility] [place] [facility] [address] [id number] [place] [address]- 6434 31 Jun, 2012 [facility] [place] [facility] [address] [id number] [place] [address]- 9388 Jun, [facility] [place] [facility] [address] [id number], [place] [address]- 4[address] 31 May, 2012 [facility] [place] [facility] [address] [id number] [place] [address]- 9949 May, [facility] [place] [facility] [address] [id number] [place] [address]- 4650 May, [facility] [place] [facility] [address] [id number] [place] [address]- 8942 May, [facility] [place] [facility] [address] [id number] [place] [address]- 2494 10 May, 2012 [facility] [address] [id number] [place] [address]- 4414 May, [facility] [address] [id number] [place] [address]- 5946 Apr, [facility] [address] [id number] [place] [address]- 6904 Apr, [facility] [address] [id number] [place] [address]- 3418 March, [facility] [address] [id number] [place] [address]- 3031 March, [facility] [address] [id number] [place] [address]- 9319 March, [facility] [address] [id number] [place] [address]- 7004 March, [facility] [address] [id number] [place] [address]- 4867 March, [facility] [address] [id number] [place] [address]- 8988 March, [facility] [address] [id number] [place] [address]- 7530 30 Feb, 2012 [facility] [address] [id number] [place] [address]- 0977 Feb, [facility] [address] [id number] [place] [address]- 0735 Feb, [facility] [address] [id number] [place] [address]- 8540 Feb, [facility] [address] [id number] [place] [address]- 8094 23 Feb, 2012 [facility] [address] [id number] [place] [address]- 0988 19 Feb, 2012 [facility] [address] [id number] [place] [address]- 6887 10 Feb, 2012 [facility] [place] [facility] [address] [id number] [place] [address]- 9866 Feb, [facility] [place] [facility] [address] [id number] [place] [address]- 0256 04 Feb, 2012 [facility] [place] [facility] [address] [id number] [place] [address]- 6553 30 Jan, 2012 [facility] [address] [id number] [place] [address]- 2701 27 Jan, 2012 [facility] [place] [facility] [address] [id number] [place] [address]- 1585 26 Jan, 2012 [facility] [place] [facility] [address] [id number] [place] [address]- 5226 Jan, [facility] [place] [facility] [address] [id number] [place] [address]- 2138 Jan, [facility] [place] [facility] [address] [id number] [place] [address]- 3788 Jan, [facility] [place] [facility] [address] [id number] [place] [address]- 4552 14 Jan, 2012 [facility] [place] [facility] [address] [id number] [place] [address]- 6301 Jan, [facility] [place] [facility] [address] [id number] [place] [address]- 8128 Jan, [facility] [place] [facility] [address] [id number] [place] [address]- 2186 08 Jan, 2012 [facility] [place] [facility] [address] [id number] [place] [address]- 6306 07 Jan, 2012 [facility] [place] [facility] [address] [id number] [place] [address]- 3128 06 Jan, 2012 [facility] [place] [facility] [address] [id number] [place] [address]- 0343 Jan, [facility] [address] [id number] [place] [address]- 6216 Jan, [facility] [place] [facility] [address] [id number] [place] [address]- 2426 28 Dec, 2011 [facility] [place] [facility] [address] [id number] [place] [address]- 5786 Dec, [facility] [place] [facility] [address] [id number] [place] [address]- 7469 25 Dec, 2011 [facility] [place] [facility] [address] [id number] [place] [address]- 0316 23 Dec, 2011 [facility] [place] [facility] [address] [id number] [place] [address]- 8786 16 Dec, 2011 [facility] [address] [facility] [id number] [place] [address]- 9159 08 Dec, 2011 [facility] [address] [id number] [place] [address]- 5315 08 Dec, 2011 [facility] [place] [facility] [address] [facility] [id number] [place] [address]- 6154 07 Dec, 2011 [facility] [address] [facility] [id number] [place] [address]- 6468 07 Dec, 2011 [facility] [place] [facility] [address] [id number] [place] [address]- 2667 Nov, [facility] [place] [facility] [address] [id number] [place] [address]- 2540 Nov, [facility] [place] [facility] [address] [id number] [place] [address]- 8145 Nov, [facility] [place] [facility] [address] [id number] [place] [address]- 1026 05 Nov, 2011 [facility] [place] [facility] [address] [facility] [id number] [place] [address]- 6890 Oct, [facility] [place] [facility] [address] [id number] [place] [address]- 6076 Oct, [facility] [place] [facility] [address] [id number] [place] [address]- 6779 Oct, [facility] [place] [facility] [address] [id number] [place] [address]- 4755 Oct, [facility] [place] [facility] [address] [id number] [place] [address]- 6243 Oct, [facility] [place] [facility] [address] [id number] [place] [address]- 0770 Oct, [facility] [place] [facility] [address] [id number] [place] [address]- 2922 Oct, [facility] [place] [facility] [address] [id number] [place] [address]- 0061 Sep, [facility] [place] [facility] [address] [id number] [place] [address]- 2692 Sep, [facility] [place] [facility] [address] [id number] [place] [address]- 1852 Sep, [facility] [place] [facility] [address] [id number], [place] [address]- 9358 Sep, [facility] [place] [facility] [address] [id number], [place] [address]- 3355 Sep, [facility] [place] [facility] [address] [id number], [place] [address]- 0631 Sep, [facility] [place] [facility] [address] [id number], [place] [address]- 6100 Sep, [facility] [place] [facility] [address] [id number], [place] [address]- 6149 Sep, [facility] [place] [facility] [address] [id number], [place] [address]- 4730 Sep, [facility] [place] [facility] [address] [id number], [place] [address]- 4868 30 Aug, 2011 [facility] [address] [id number] [place] [address]- 6978 28 Aug, 2011 [facility] [place] [facility] [address] [id number] [place] [address]- 5041 27 Aug, 2011 [facility] [address] [id number] [place] [address]- 6626 19 May, 2011 [facility] [address] [id number] [place] [address]- 3246 13 Nov, 2010 [facility] [address] [id number] [place] [address], [place] [address]- 6105 31 Oct, 2010 [facility] [place] [facility] [address] [id number] [place] [address]- 3459 30 Oct, 2010 [facility] [address] [facility] [id number] [place] [address]- 4578 30 Oct, 2010 [facility] [place] [facility] [address] [facility] [id number] [place] [address]- 1084 Oct, [facility] [address] [facility] [id number] [place] [address]- 6205 Oct, [facility] [place] [facility] [address] [facility] [id number] [place] [address]- 7627 Sep, [facility] [place] [facility] [address] [facility] [id number] [place] [address]- 5564 Sep, [facility] [place] [facility] [address] [id number] [place] [address]- 9507 14 Jul, 2010 [facility] [place] [facility] [address] [id number] [place] [address]- 3237 31 Oct, 2009 [facility] [place] [facility] [address] [facility] [id number] [place] [address]- 4290 09 Oct, 2009 [facility] [place] [facility] [address] [facility] [id number] [place] [address]- 7100 04 Oct, 2009 [facility] [place] [facility] [address] [id number], [place] [address] 0776 Oct, [facility] [id number] [address]26 Sep, [facility] [id number], [place] [address]- 4063 Sep, [facility] [id number], [place] [address]- 3320 Sep, [facility] [id number], [place] [address]- 1124 Sep, [facility] [id number] [place] [address]- 8372 Sep, [facility] [id number], [place] [address]- 6218 Jul, [facility] [id number], [place] [address]- 7004 Apr, [facility] [address] [id number], [place] [address]- 3094 Dec, IMMUNIZATIONS No Known Immunizations SOCIAL HISTORY Never Assessed REASON FOR VISIT Left message PLAN OF CARE VITAL SIGNS MEDICATIONS Unknown Medications RESULTS No Results PROCEDURES No Known procedures INSTRUCTIONS MEDICATIONS ADMINISTERED No Known Medications MEDICAL (GENERAL) HISTORY Type Description Date Medical History hypertension Medical History hyperlipidemia Medical History diabetes type II Medical History COPD Medical History asthma Surgical History hysterectomy Surgical History arthritis surgery Hospitalization History surgeries
--- OUTSIDE RECORDS SUMMARY | 2018-11-26 16:10 | XMS REPORT ---
Author Author KING FISHMAN [facility] Address [address] [place] [address] Care Team Providers Care Activity Director Name Role Phone KING FISHMAN Unavailable PROBLEMS Type Condition ICD9-CM Code JPA06-GP Code Onset Dates Condition Status SNOMED Code Problem Essential hypertension I10 Active 80525329 Problem Lumbago with sciatica, left side M54.42 Active 791011447 Problem Acquired hypothyroidism E03.9 Active 194335662 Problem Prediabetes R73.03 Active 613738969 Problem Reactive depression F32.9 Active 66893856 Problem Mixed hyperlipidemia E78.2 Active 189384125 Problem Pain in right ankle and joints of right foot M25.571 Active 60941308503780 Problem Chronic obstructive pulmonary disease, unspecified COPD type J44.9 Active 77835829 Problem Gastroesophageal reflux disease, esophagitis presence not specified K21.9 Active 278715199 Problem Lumbago with sciatica, right side M54.41 Active [id number] Problem Cigarette nicotine dependence without complication F17.210 Active 63663547 Problem Other chronic pain G89.29 Active 59848155 ALLERGIES Substance Reaction Event Type Date Status Penicillin G Potassium anaphylaxis Drug Allergy Jan, Active Codeine Sulfate anaphylaxis Drug Allergy Jan, Active Aspirin hives Drug Allergy Jan, Active Peanut hives Non Drug Allergy Jan, Active ENCOUNTERS Encounter Location Date Diagnosis [facility] [address] [facility] [id number], [place] [address] Jul, [facility] [address] [facility] [id number], [place] [address] Jun, [facility] [address] [facility] [id number], [place] [address] 0746 May, [facility] [address] [place] [id number] [place] [address] 05235- 1581 May, Acute non-recurrent frontal sinusitis J01.10 and Dermatitis L30.9 [facility] [address] [place] [id number] [place] [address] 09121- 8380 May, [facility] [id number] [place] [address] 63075- 8294 May, Pain in thoracic spine M54.6 [facility] [id number] [place] [address] 47107- 0170 May, [facility] [id number] [place] [address] 41857- 1056 May, Acute nasopharyngitis J00 [facility] [id number] [place] [address] 01980- 0973 May, [facility] [id number] [place] [address] 82407- 8078 May, [facility] [id number] [place] [address] 42202- 4188 Apr, [facility] [id number] [place] [address] 11620- 7986 Apr, [facility] [id number] [place] [address] 62021- 6775 Apr, [facility] [id number] [place] [address] 37749- 9145 Apr, [facility] [id number] [place] [address] 39829- 4828 Apr, Pain in right ankle and joints of right foot M25.571 [facility] [id number] [place] [address] 17726- 3015 Apr, [facility] [id number] [place] [address] 03936- 0326 Apr, Bronchitis J40 ; Pain in right ankle and joints of right foot M25.571 ; Other chronic pain G89.29 ; Prediabetes R73.03 ; Chronic obstructive pulmonary disease, unspecified COPD type J44.9 and Cigarette nicotine dependence without complication F17.210 [facility] [address] [address] -[address]377 13 Apr, 2018 Seasonal allergic rhinitis, unspecified trigger J30.2 [facility] [address] 90379- 3645 08 Apr, 2018 Onychomycosis B35.1 ; Onychocryptosis L60.0 and DM 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 [place] [address] 02743- 2929 Apr, Reactive depression F32.9 ; Thoracic myofascial strain, initial encounter S29.019A and Leg cramps R25.2 [place] [address] [address]39- 8038 March, [place] [address] 37356- 6437 March, Type 2 diabetes mellitus with hyperglycemia E11.65 [place] [address] 08777- 8180 March, Reactive depression F32.9 [place] [address] 32552- 3444 March, Pain in thoracic spine M54.6 and Other chronic pain G89.29 [place] [address] 08535- 3424 Feb, [place] [address] 47177- 8475 Jan, Reactive depression F32.9 ; Essential hypertension I10 ; Gastroesophageal reflux disease, esophagitis presence not specified K21.9 ; Lumbago with sciatica, left side M54.42 and Lumbago with sciatica, right side M54.41 [place] [address] 00941- 3488 Jan, Reactive depression F32.9 and Pharyngoesophageal dysphagia R13.14 [place] [address] 46711- 3410 Jan, [place] [address] 59134- 5619 Jan, Encounter for immunization Z23 [place] [address] 11944- 2412 Jan, Onychomycosis B35.1 and DM 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 51218- 6062 Jan, [place] [address] 69595- 2243 Jan, Prediabetes R73.[address] 20107- 4750 Dec, [place] [address] 17619- 3738 Dec, Essential hypertension I10 ; Mixed hyperlipidemia E78.2 ; Acquired hypothyroidism E03.9 ; Reactive depression F32.9 and Prediabetes R73.03 [place] [address] 33975- 4618 Dec, [place] [address] 20608- 6419 Dec, [place] [address] 89936- 4945 Dec, DM 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 [facility] WALK IN [place] [address] 88936 -6525 08 Dec, 2017 Bruise T14.8XXA ; Type 2 diabetes mellitus with hyperglycemia E11.65 and correction current use of insulin Z79.[address] 67530- 1207 Oct, [facility] [address] [address] 8368 March, Onychomycosis B35.1 and DM 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 [facility] [address], [place] [address]- 7899 Jun, [facility] [id number] [place] [address] 58608- 1210 Jun, [facility] [address] [address]- 0618 Jun, COPD with acute exacerbation 491.21 [facility] [id number] [place] [address] 53022- 2058 Apr, [facility] [address] [id number] [address]- 4950 Feb, [facility] [address], [place] [address]- 9838 Feb, [facility] [address] [address]- 4506 Jan, [facility] [address], [place] [address]- 7671 Jan, [facility] [address], [place] [address]- 3482 Jan, [facility] [address], [place] [address]- 8629 Jan, [facility] [address], [place] [address]- 2222 Jan, [facility] [address], [place] [address]- 3240 Jan, [facility] [address], [place] [address]- 8243 Jan, [facility] [address] [place] [id number] [place] [address]- 9962 23 Jan, 2014 [facility] [place] [facility] [address] [id number] [place] [address]- 9027 23 Jan, 2014 [facility] [place] [facility] [address] [id number] [place] [address]- 8485 19 Jan, 2014 [facility] [place] [facility] [address] [id number] [place] [address]- 0730 19 Jan, 2014 [facility] [place] [facility] [address] [id number] [place] [address]- 9330 18 Jan, 2014 [facility] [place] [facility] [address] [id number] [place] [address]- 5571 18 Jan, 2014 [facility] [place] [facility] [address] [id number] [place] [address]- 5803 16 Jan, 2014 [facility] [place] [facility] [address] [id number] [place] [address]- 7855 16 Jan, 2014 [facility] [place] [facility] [address] [id number] [place] [address]- 7199 16 Jan, 2014 [facility] [place] [facility] [address] [id number] [place] [address]- 4089 16 Jan, 2014 [facility] [place] [facility] [address] [id number] [place] [address]- 3732 15 Jan, 2014 [facility] [place] [facility] [address] [id number] [place] [address]- 2886 13 Jan, 2014 [facility] [place] [facility] [address] [id number] [place] [address]- 1291 13 Jan, 2014 [facility] [place] [facility] [address] [id number] [place] [address]- 2041 13 Jan, 2014 [facility] [place] [facility] [address] [id number] [place] [address]- 8666 13 Jan, 2014 [facility] [place] [facility] [address] [id number] [place] [address]- 7620 Jan, [facility] [place] [facility] [address] [id number] [place] [address]- 7855 Jan, [facility] [place] [facility] [address] [id number] [place] [address]- 5616 Jan, [facility] [place] [facility] [address] [id number] [place] [address]- 5798 Dec, [facility] [place] [facility] [address] [id number] [place] [address]- 8944 Dec, [facility] [place] [facility] [address] [id number] [place] [address]- 1964 Dec, [facility] [place] [facility] [address] [id number] [place] [address]- 0386 Dec, [facility] [place] [facility] [address] [id number] [place] [address]- 9713 Dec, [facility] [place] [facility] [address] [id number] [place] [address]- 5746 Dec, [facility] [place] [facility] [address] [id number] [place] [address]- 6274 Dec, [facility] [place] [facility] [address] [id number] [place] [address]- 1738 Dec, [facility] [place] [facility] [address] [id number] [place] [address]- 0708 Dec, [facility] [place] [facility] [address] [id number] [place] [address]- 2542 Dec, [facility] [place] [facility] [address] [id number] [place] [address]- 0755 Dec, [facility] [place] [facility] [address] [id number] [place] [address]- 4477 Dec, 2014 [facility] [place] [facility] [address] [id number] [place] [address]- 1453 Nov, [facility] [place] [facility] [address] [id number] [place] [address]- 3083 Nov, [facility] [address] [id number] [place] [address]- 2091 Nov, [facility] [place] [facility] [address] [id number] [place] [address]- 8946 Nov, [facility] [address] [id number] [place] [address]- 8081 Nov, [facility] [address] [id number] [place] [address]- 2270 Nov, [facility] [address] [id number] [place] [address]- 1876 Nov, [facility] [address] [id number] [place] [address]- 5057 Nov, [facility] [address] [id number] [place] [address]- 0744 Nov, [facility] [address] [id number] [place] [address]- 8916 Nov, [facility] [address] [id number] [place] [address]- 8961 Nov, [facility] [address] [id number] [place] [address]- 4993 Nov, [facility] [address] [id number] [place] [address]- 7782 Oct, [facility] [address] [id number] [place] [address]- 8264 Oct, [facility] [place] [facility] [address] [id number] [place] [address]- 9872 Oct, [facility] [place] [facility] [address] [id number] [place] [address]- 5226 Oct, [facility] [place] [facility] [address] [id number] [place] [address]- 1105 Oct, [facility] [place] [facility] [address] [id number] [place] [address]- 4361 29 Oct, 2014 [facility] [place] [facility] [address] [id number] [place] [address]- 2119 Oct, [facility] [place] [facility] [address] [id number] [place] [address]- 7662 Oct, [facility] [place] [facility] [address] [id number] [place] [address]- 2574 Oct, [facility] [place] [facility] [address] [id number] [place] [address]- 9601 17 Oct, 2014 [facility] [place] [facility] [address] [id number] [place] [address]- 4133 16 Oct, 2014 [facility] [place] [facility] [address] [id number] [place] [address]- 6802 16 Oct, 2014 [facility] [place] [facility] [address] [id number] [place] [address]- 7025 15 Oct, 2014 [facility] [place] [facility] [address] [id number] [place] [address]- 8897 15 Oct, 2014 [facility] [place] [facility] [address] [id number] [place] [address]- 8388 08 Oct, 2014 [facility] [place] [facility] [address] [id number] [place] [address]- 1205 Sep, [facility] [place] [facility] [address] [id number] [place] [address]- 4249 Sep, [facility] [place] [facility] [address] [id number] [place] [address]- 9842 Sep, [facility] [place] [facility] [address] [id number] [place] [address]- 9049 Sep, [facility] [place] [facility] [address] [id number] [place] 0028 Aug, [facility] [place] [facility] [address] [id number] [place] [address]- 3915 Aug, [facility] [place] [facility] [address] [id number] [place] [address]- 5010 Aug, [facility] [place] [facility] [address] [id number] [place] [address]- 5443 Aug, [facility] [place] [facility] [address] [id number] [place] [address]- 7336 Aug, [facility] [place] [facility] [address] [id number] [place] [address]- 6498 Aug, [facility] [place] [facility] [address] [id number] [place] [address]- 7955 29 Jul, 2014 [facility] [place] [facility] [address] [id number] [place] [address]- 4658 29 Jul, 2013 [facility] [place] [facility] [address] [id number] [place] [address]- 1366 15 Jul, 2014 [facility] [place] [facility] [address] [id number] [place] [address]- 4179 15 Jul, 2014 [facility] [place] [facility] [address] [id number] [place] [address]- 6484 08 Jul, 2014 [facility] [place] [facility] [address] [id number] [place] [address]- 3007 08 Jul, 2014 [facility] [place] [facility] [address] [id number] [place] [address]- 7147 Jun, [facility] [place] [facility] [address] [id number] [place] [address]- 8834 Jun, [facility] [place] [facility] [address] [id number] [place] [address]- 9909 Jun, [facility] [place] [facility] [address] [id number] [place] [address]- 5882 Jun, [facility] [place] [facility] [address] [id number] [place] [address]- 3614 Jun, [facility] [place] [facility] [address] [id number] [place] [address]- 2135 Jun, [facility] [place] [facility] [address] [id number] [place] [address]- 6979 Jun, [facility] [place] [facility] [address] [id number] [place] [address]- 0080 May, [facility] [place] [facility] [address] [id number] [place] [address]- 7980 May, [facility] [place] [facility] [address] [id number] [place] [address]- 3326 May, [facility] [place] [facility] [address] [id number] [place] [address]- 9888 May, [facility] [place] [facility] [address] [id number] [place] [address]- 2904 May, [facility] [place] [facility] [address] [id number] [place] [address]- 8156 May, [facility] [place] [facility] [address] [id number] [place] [address]- 4781 May, [facility] [place] [facility] [address] [id number] [place] [address]- 0178 May, [facility] [place] [facility] [address] [id number] [place] [address]- 2734 May, [facility] [place] [facility] [address] [id number] [place] [address]- 4956 May, [facility] [place] [facility] [address] [id number] [place] [address]- 9195 May, [facility] [place] [facility] [address] [id number] [place] [address]- 3859 May, [facility] [place] [facility] [address] [id number] [place] [address]- 4153 Apr, [facility] [place] [facility] [address] [id number] [place] [address]- 3471 Apr, [facility] [place] [facility] [address] [id number] [place] [address]- 2696 Apr, [facility] [place] [facility] [address] [id number] [place] [address]- 8604 Apr, [facility] [place] [facility] [address] [id number] [place] [address]- 4331 Apr, [facility] [place] [facility] [address] [id number] [place] [address]- 9474 Apr, [facility] [place] [facility] [address] [id number] [place] [address]- 2973 Apr, [facility] [place] [facility] [address] [id number] [place] [address]- 7929 Apr, [facility] [place] [facility] [address] [id number] [place] [address]- 8525 Apr, [facility] [place] [facility] [address] [id number] [place] [address]- 5681 Apr, [facility] [place] [facility] [address] [id number] [place] [address]- 3988 March, [facility] [place] [facility] [address] [id number] [place] [address]- 3994 March, [facility] [place] [facility] [address] [id number] [place] [address]- 4443 March, [facility] [place] [facility] [address] [id number], [place] [address]- 7791 March, [facility] [place] [facility] [address] [id number] [place] [address]- 9420 March, [facility] [place] [facility] [address] [id number] [place] [address]- 7719 March, [facility] [place] [facility] [address] [id number] [place] [address]- 6362 Feb, [facility] [place] [facility] [address] [id number] [place] [address]- 9165 Feb, [facility] [place] [facility] [address] [id number] [place] [address]- 1994 Feb, [facility] [place] [facility] [address] [id number] [place] [address]- 6636 Feb, [facility] [place] [facility] [address] [id number] [place] [address]- 1006 Feb, [facility] [place] [facility] [address] [id number] [place] [address]- 2797 Feb, [facility] [place] [facility] [address] [id number] [place] [address]- 1197 Feb, [facility] [place] [facility] [address] [id number] [place] [address]- 5145 Feb, [facility] [place] [facility] [address] [id number] [place] [address]- 1347 Feb, [facility] [place] [facility] [address] [id number] [place] [address]- 8396 Feb, [facility] [place] [facility] [address] [id number] [place] [address]- 8193 Jan, [facility] [place] [facility] [address] [id number] [place] [address]- 1222 Jan, [facility] [place] [facility] [address] [id number] [place] [address]- 7402 Jan, [facility] [place] [facility] [address] [id number] [place] [address]- 8468 Jan, [facility] [place] [facility] [address] [id number] [place] [address]- 6174 Jan, [facility] [place] [facility] [address] [id number] [place] [address] Jan, [facility] [place] [facility] [address] [id number] [place] [address] Jan, [facility] [place] [facility] [address] [id number] [place] [address] Jan, [facility] [place] [facility] [address] [id number] [place] [address] Dec, [facility] [place] [facility] [address] [id number] [place] [address] Dec, [facility] [place] [facility] [address] [id number] [place] [address] Dec, [facility] [place] [facility] [address] [id number] [place] [address] Dec, [facility] [place] [facility] [address] [id number] [place] [address] Dec, [facility] [place] [facility] [address] [id number] [place] [address] Dec, [facility] [place] [facility] [address] [id number] [place] [address] Dec, [facility] [place] [facility] [address] [id number] [place] [address] Dec, [facility] [place] [facility] [address] [id number] [place] [address] Nov, [facility] [place] [facility] [address] [id number] [place] [address] Nov, [facility] [place] [facility] [address] [id number] [place] [address] Nov, [facility] [place] [facility] [address] [id number] [place] [address] Nov, [facility] [place] [facility] [address] [id number] [place] [address]- 40[address] Nov, [facility] [place] [facility] [address] [id number] [place] [address] Nov, [facility] [place] [facility] [address] [id number] [place] [address]- [address] Nov, [facility] [address] [id number] [place] [address] Nov, [facility] [place] [facility] [address] [id number] [place] [address] Nov, [facility] [address] [id number] [place] [address]- [address] Nov, [facility] [place] [facility] [address] [id number] [place] [address] Nov, [facility] [address] [id number] [place] [address] Oct, [facility] [place] [facility] [address] [id number] [place] [address] Oct, [facility] [address] [id number] [place] [address] Oct, [facility] [place] [facility] [address] [id number] [place] [address] Oct, [facility] [place] [facility] [address] [id number] [place] [address] Sep, [facility] [place] [facility] [address] [facility] [id number] [place] [address] Sep, [facility] [place] [facility] [address] [id number] [place] [address]- [address] Sep, [facility] [place] [facility] [address] [id number] [place] [address]- [address] Sep, [facility] [place] [facility] [address] [id number] [place] [address]- [address] Aug, [facility] [place] [facility] [address] [id number] [place] [address] Aug, [facility] [place] [facility] [address] [id number] [place] [address] 79[address] Aug, [facility] [place] [facility] [address] [id number] [place] [address]47 Aug, [facility] [place] [facility] [address] [id number] [place] [address]163 Aug, [facility] [place] [facility] [address] [id number] [place] [address]61 Aug, [facility] [place] [facility] [address] [id number] [place] [address] Aug, [facility] [address] [id number] [place] [address] Aug, [facility] [place] [facility] [address] [id number] [place] [address] 28 Jul, 2012 [facility] [address] [id number] [place] [address]- [address] 27 Jul, 2012 [facility] [address] [id number] [place] [address] 26 Jul, 2012 [facility] [place] [facility] [address] [id number] [place] [address]- [address]95 24 Jul, 2012 [facility] [place] [facility] [address] [id number] [place] [address]- [address]77 24 Jul, 2012 [facility] [place] [facility] [address] [id number] [place] [address]- [address]073 23 Jul, 2012 [facility] [place] [facility] [address] [id number], [place] [address] 19 Sep, 2012 [facility] [place] [facility] [address] [id number] [place] [address]- [address]44 18 Sep, 2012 [facility] [place] [facility] [address] [id number] [place] [address]- [address] 17 Sep, 2012 [facility] [place] [facility] [address] [id number] [place] [address]- [address] 16 Sep, 2012 [facility] [place] [facility] [address] [id number] [place] [address]- [address] 13 Jul, 2013 [facility] [place] [facility] [address] [id number] [place] [address] 13 Jul, 2013 [facility] [place] [facility] [address] [id number] [place] [address] 12 Jul, 2013 [facility] [place] [facility] [address] [id number] [place] [address] 7[address] Jul, [facility] [place] [facility] [address] [id number] [place] [address]- 7919 04 Jul, 2013 [facility] [place] [facility] [address] [id number] [place] [address]- 7165 Jun, [facility] [place] [facility] [address] [id number] [place] [address]- 3978 Jun, [facility] [place] [facility] [address] [id number] [place] [address]- 7948 Jun, [facility] [place] [facility] [address] [id number] [place] [address]- 7710 May, [facility] [place] [facility] [address] [id number] [place] [address]- 6304 May, [facility] [place] [facility] [address] [id number] [place] [address]- 0777 May, [facility] [place] [facility] [address] [id number] [place] [address]- 2068 May, [facility] [place] [facility] [address] [id number] [place] [address]- 0697 Apr, [facility] [place] [facility] [address] [id number] [place] [address]- 3100 Apr, [facility] [place] [facility] [address] [id number] [place] [address]- 2021 Apr, [facility] [place] [facility] [address] [id number] [place] [address]- 0896 Apr, [facility] [place] [facility] [address] [id number] [place] [address]- 2684 March, [facility] [address] [id number] [place] [address]- 0546 March, [facility] [address] [id number] [place] [address]- 4596 March, [facility] [address] [id number] [place] [address]- 7674 Feb, [facility] [address] [id number] [place] [address]- 7415 Feb, [facility] [address] [id number] [place] [address]- 4161 Jan, [facility] [address] [id number] [place] [address]- 2371 Jan, [facility] [address] [id number] [place] [address]- 6382 Jan, [facility] [address] [id number] [place] [address]- 5563 Jan, [facility] [address] [id number] [place] [address]- 1459 Jan, [facility] [address] [id number] [place] [address]- 9176 Dec, [facility] [address] [id number] [place] [address]- 2348 Dec, [facility] [address] [id number] [place] [address]- 7501 Dec, [facility] [address] [id number] [place] [address]- 0567 Dec, [facility] [address] [id number] [place] [address]- 3302 18 Dec, 2012 [facility] [address] [id number] [place] [address]- 2369 06 Dec, 2012 [facility] [address] [id number] [place] [address]- 5620 Dec, [facility] [address] [id number] [place] [address]- 0116 Dec, [facility] [address] [id number] [place] [address]- 4391 Nov, [facility] [address] [id number] [place] [address]- 9417 Nov, [facility] [address] [id number] [place] [address]- 9979 Nov, [facility] [address] [id number] [place] [address]- 8767 Nov, [facility] [address] [id number] [place] [address]- 2324 Nov, [facility] [address] [id number] [place] [address]- 2941 Nov, [facility] [address] [id number] [place] [address]- 0950 Nov, [facility] [address] [id number] [place] [address]- 7520 Oct, [facility] [address] [id number], [place] [address]- 3095 Oct, [facility] [place] [facility] [address] [id number], [place] [address]- 3549 Oct, [facility] [place] [facility] [address] [id number] [place] [address] Oct, [facility] [place] [facility] [address] [id number] [place] [address]- 3900 Oct, [facility] [place] [facility] [address] [id number] [place] Oct, [facility] [place] [facility] [address] [id number] [place] [address]- 5084 Oct, [facility] [place] [facility] [address] [id number] [place] [address]- 6201 Oct, [facility] [place] [facility] [address] [id number] [place] [address]- 4637 Sep, [facility] [place] [facility] [address] [id number] [place] [address]- 5424 Sep, [facility] [place] [facility] [address] [id number] [place] [address]- 1335 Sep, [facility] [place] [facility] [address] [id number] [place] [address]- 1450 Sep, [facility] [place] [facility] [address] [id number] [place] [address]- 4878 Sep, [facility] [place] [facility] [address] [id number] [place] [address]- 0428 Sep, [facility] [place] [facility] [address] [id number] [place] [address]- 5945 Sep, [facility] [place] [facility] [address] [id number] [place] [address]- 9082 Sep, [facility] [place] [facility] [address] [id number] [place] [address]- 4147 Sep, [facility] [place] [facility] [address] [id number] [place] [address]- 5819 Sep, [facility] [place] [facility] [address] [id number] [place] [address]- 2170 Sep, [facility] [place] [facility] [address] [id number] [place] [address]- 7863 Sep, [facility] [place] [facility] [address] [id number] [place] [address]- 9614 Sep, [facility] [place] [facility] [address] [id number] [place] [address]- 9964 Sep, [facility] [place] [facility] [address] [id number] [place] [address]- 8924 Sep, [facility] [place] [facility] [address] [id number] [place] [address]- 5447 Sep, [facility] [place] [facility] [address] [id number] [place]68 Sep, [facility] [place] [facility] [address] [id number] [place] [address]- 9108 Sep, [facility] [place] [facility] [address] [id number] [place] [address]- 9733 Sep, [facility] [place] [facility] [address] [id number] [place] [address]- 9691 Sep, [facility] [place] [facility] [address] [id number] [place] [address]- 4475 Aug, [facility] [place] [facility] [address] [id number] [place] [address]- 8145 31 Aug, 2012 [facility] [place] [facility] [address] [id number] [place] [address]- 9217 29 Aug, 2012 [facility] [place] [facility] [address] [facility] [id number], [place] [address]- 9931 Aug, [facility] [place] [facility] [address] [id number], [place] [address]- 0853 27 Aug, 2012 [facility] [place] [facility] [address] [id number], [place] [address]- 0296 18 Aug, 2012 [facility] [place] [facility] [address] [id number] [place] [address]- 8671 18 Aug, 2012 [facility] [place] [facility] [address] [id number] 4000 17 Aug, 2012 [facility] [place] [facility] [address] [facility] [id number] 7939 16 Aug, 2012 [facility] [place] [facility] [address] [id number] [place] [address]- 1967 16 Aug, 2012 [facility] [place] [facility] [address] [id number] [place] [address]- 1528 15 Aug, 2012 [facility] [place] [facility] [address] [id number] [place] [address]- 3651 09 Aug, 2012 [facility] [place] [facility] [address] [id number] [place] [address]- 5000 Aug, [facility] [place] [facility] [address] [id number] [place] [address]- 9433 05 Aug, 2012 [facility] [place] [facility] [address] [id number] [place] [address]- 5180 Aug, [facility] [place] [facility] [address] [id number] [place] [address]- 2736 14 Jul, 2012 [facility] [place] [facility] [address] [id number] [place] [address]- 4915 10 Jul, 2012 [facility] [place] [facility] [address] [id number] [place] [address]- 1827 Jun, [facility] [place] [facility] [address] [id number] [place] [address]- 7010 Jun, [facility] [place] [facility] [address] [id number] [place] [address]- 6934 May, [facility] [place] [facility] [address] [id number] [place] [address]- 6017 May, [facility] [place] [facility] [address] [id number] [place] [address]- 7819 24 May, 2012 [facility] [place] [facility] [address] [id number] [place] [address]- 4498 May, [facility] [place] [facility] [address] [id number] [place] [address]- 6629 May, [facility] [place] [facility] [address] [id number] [place] [address]- 4873 May, [facility] [place] [facility] [address] [id number] [place] [address]- 2362 Apr, [facility] [place] [facility] [address] [id number] [place] [address]- 8949 Apr, [facility] [place] [facility] [address] [id number] [place] [address]- 9014 March, [facility] [place] [facility] [address] [id number] [place] [address]- 4994 March, [facility] [place] [facility] [address] [id number] [place] [address]- 8650 March, [facility] [place] [facility] [address] [id number] [place] [address]- 3821 March, [facility] [place] [facility] [address] [id number] [place] [address]- 1179 March, [facility] [place] [facility] [address] [id number] [place] [address]- 2023 March, [facility] [place] [facility] [address] [id number] [place] [address]- 0082 30 Feb, 2012 [facility] [place] [facility] [address] [id number] [place] [address]- 3285 Feb, [facility] [place] [facility] [address] [id number] [place] [address]- 7880 Feb, [facility] [place] [facility] [address] [id number] [place] [address]- 1291 Feb, [facility] [place] [facility] [address] [id number] [place] [address]- 1486 23 Feb, 2012 [facility] [place] [facility] [address] [id number] [place] [address]- 9727 19 Feb, 2012 [facility] [place] [facility] [address] [id number] [place] [address]- 9580 10 Feb, 2012 [facility] [place] [facility] [address] [id number] [place] [address]- 2874 Feb, [facility] [place] [facility] [address] [id number] [place] [address]- 1414 Feb, [facility] [place] [facility] [address] [id number] [place] [address]- 5026 30 Jan, 2012 [facility] [place] [facility] [address] [id number] [place] [address]- 1796 27 Jan, 2012 [facility] [place] [facility] [address] [id number] [place] [address]- 9727 Jan, [facility] [place] [facility] [address] [id number] [place] [address]- 3588 22 Jan, 2012 [facility] [place] [facility] [address] [id number] [place] [address]- 5962 Jan, [facility] [place] [facility] [address] [id number] [place] [address]- 5888 Jan, [facility] [place] [facility] [address] [id number] [place] [address]- 1500 14 Jan, 2012 [facility] [place] [facility] [address] [id number] [place] [address]- 5960 Jan, [facility] [place] [facility] [address] [id number] [place] [address]- 4843 Jan, [facility] [place] [facility] [address] [id number] [place] [address]- 0815 08 Jan, 2012 [facility] [place] [facility] [address] [id number], [place] [address]- 0503 07 Jan, 2012 [facility] [place] [facility] [address] [id number] [place] [address]- 4196 06 Jan, 2012 [facility] [place] [facility] [address] [id number] [place] [address]- 7596 Jan, [facility] [place] [facility] [address] [id number] [place] [address]- 2106 Jan, [facility] [place] [facility] [address] [id number] [place] [address]- 2306 28 Dec, 2011 [facility] [address] [id number] [place] [address]- 9836 Dec, [facility] [place] [facility] [address] [id number] [place] [address] 2546 Dec, [facility] [place] [facility] [address] [id number] [place] [address]- 7386 23 Dec, 2011 [facility] [place] [facility] [address] [id number] [place] [address]- 2546 16 Dec, 2011 [facility] [place] [facility] [address] [id number] [place] [address]- 0336 08 Dec, 2011 [facility] [place] [facility] [address] [facility] [id number] [place] [address]- 2459 08 Dec, 2011 [facility] [place] [facility] [address] [id number] [place] [address]- 8658 Dec, [facility] [place] [facility] [address] [id number] [place] [address]- 1504 07 Dec, 2011 [facility] [place] [facility] [address] [facility] [id number] [place] [address]- 6177 Nov, [facility] [place] [facility] [address] [facility] [id number] [place] [address]- 9709 Nov, [facility] [place] [facility] [address] [facility] [id number] [place] [address]- 2540 Nov, [facility] [place] [facility] [address] [id number] [place] [address]- 0255 Nov, [facility] [place] [facility] [address] [facility] [id number] [place] [address]- 8656 Oct, [facility] [place] [facility] [address] [id number] [place] [address]- 3588 Oct, [facility] [place] [facility] [address] [id number] [place] [address]- 4822 Oct, [facility] [place] [facility] [address] [id number] [place] [address]- 4046 Oct, [facility] [place] [facility] [address] [id number] [place] [address]- 8896 Oct, [facility] [place] [facility] [address] [id number] [place] [address]- 5468 Oct, [facility] [place] [facility] [address] [id number] [place] [address]- 8270 Oct, [facility] [place] [facility] [address] [id number] [place] [address]- 6711 Sep, [facility] [place] [facility] [address] [id number] [place] [address]- 7605 Sep, [facility] [place] [facility] [address] [id number] [place] [address]- 0713 Sep, [facility] [place] [facility] [address] [id number], [place] [address]- 2336 Sep, [facility] [place] [facility] [address] [id number], [place] [address]- 5324 Sep, [facility] [place] [facility] [address] [id number] [place] [address]- 2138 Sep, [facility] [place] [facility] [address] [id number], [place] [address]- 1351 Sep, [facility] [place] [facility] [address] [id number], [place] [address]- 1397 Sep, [facility] [place] [facility] [address] [id number] [place] [address]- 5115 Sep, [facility] [place] [facility] [address] [id number], [place] [address]- 1471 Aug, [facility] [place] [facility] [address] [id number] [place] [address]- 2615 Aug, [facility] [place] [facility] [address] [id number] [place] [address]- 4302 27 Aug, 2011 [facility] [address] [id number] [place] [address]- 7746 May, [facility] [address] [id number] [place] [address] 2546 13 Nov, 2010 [facility] [address] [id number] [place] [address]- 4520 31 Oct, 2010 [facility] [address] [id number] [place] [address] 2549 30 Oct, 2010 [facility] [address] [id number] [place] [address], [place] [address]- 0505 30 Oct, 2010 [facility] [address] [id number] [place] [address]- 8215 Oct, [facility] [address] [facility] [id number] [place] [address]- 0557 Oct, [facility] [address] [id number] [place] [address]- 1507 Sep, [facility] [address] [id number] [place] [address]- 7834 Sep, [facility] [address] [facility] [id number] [place] [address]- 9584 14 Jul, 2010 [facility] [address] [id number] [place] [address] 2543 Oct, [facility] [address] [id number] [place] [address] 2549 Oct, [facility] [address] [id number] [place] [address]- 4560 04 Oct, 2009 [facility] [address] [id number] [place] [address] 2546 Oct, [facility] [address] [id number] [place] [address]- 2515 Sep, [facility] [address] [facility] [id number], [place] [address]- 9963 Sep, [facility] [address] [id number], [place] [address]- 3768 Sep, [facility] [id number], [place] [address]- 9819 Sep, [facility] [id number], [place] [address]- 5349 Sep, [facility] [address] [id number], [place] [address]- 0842 Jul, [facility] [id number], [place] [address]- 7208 Apr, [facility] [address] [id number], [place] [address]- 5715 Dec, IMMUNIZATIONS No Known Immunizations SOCIAL HISTORY Never Assessed REASON FOR VISIT Depression f/u-Loy [facility] PLAN OF CARE Activity Details Follow Up 3 Months Reason: VITAL SIGNS Height 67 in 2018-02-25 Weight 182.6 lbs 2018-02-25 Temperature 98.3 degrees Fahrenheit 2018-02-25 Heart Rate 78 bpm 2018-02-25 Respiratory Rate 20 2018-02-25 BMI 28.60 kg/m2 2018-02-25 Blood pressure systolic 136 mmHg 2018-02-25 Blood pressure diastolic 76 mmHg 2018-02-25 MEDICATIONS Medication Instructions Dosage Frequency Start Date End Date Duration Status Gabapentin 300 MG Orally Once a day 1 capsule before bedtime 24h Active Metformin HCl 500 MG Orally Twice a day 1 tablet with meals 12h Active Atorvastatin Calcium 40 MG Orally Once a day 1 tablet 24h Active Protonix 40 MG Orally Once a day 1 tablet 24h Jan, 30 day(s) Active Amlodipine Besylate 5 MG Orally Once a day 1 tablet 24h Active ProAir HFA 90 mcg/actuation inhale 2 puffs by Inhalation route every 4 hours as needed PRN shortness of breath/cough March, Active Lisinopril 5 MG Orally Once a day 1 tablet 24h Active Clopidogrel Bisulfate 75 MG Orally Once a day 1 tablet 24h Active levothyroxine 50 mcg 1 tablet by Oral route 1 time per day NEW DOSE Dec, Active Prozac 40 mg Orally Once a day 1 capsule 24h Jan, 30 day(s) Active RESULTS No Results PROCEDURES No Known procedures INSTRUCTIONS MEDICATIONS ADMINISTERED No Known Medications MEDICAL (GENERAL) HISTORY Type Description Date Medical History hypertension Medical History hyperlipidemia Medical History diabetes type II Medical History COPD Medical History asthma Surgical History hysterectomy Surgical History arthritis surgery Hospitalization History surgeries
--- OUTSIDE RECORDS SUMMARY | 2018-11-26 16:11 | XMS REPORT ---
Author Author [facility] Address [address] [place] [address] Care Team Providers Care Parcel [employer] Delivery Name Role Phone [facility] Unavailable PROBLEMS Type Condition ICD9-CM Code [id number] Code Onset Dates Condition Status SNOMED Code Problem Essential hypertension I10 Active 26068181 Problem Lumbago with sciatica, left side M54.42 Active 571480876 Problem Acquired hypothyroidism E03.9 Active 352252988 Problem Prediabetes R73.03 Active 438756700 Problem Reactive depression F32.9 Active 72336888 Problem Mixed hyperlipidemia E78.2 Active 333328500 Problem Pain in right ankle and joints of right foot M25.571 Active 77679728206673 Problem Chronic obstructive pulmonary disease, unspecified COPD type J44.9 Active 82101262 Problem Gastroesophageal reflux disease, esophagitis presence not specified K21.9 Active 123574134 Problem Lumbago with sciatica, right side M54.41 Active [id number] Problem Cigarette nicotine dependence without complication F17.210 Active 18919391 Problem Other chronic pain G89.29 Active 64380686 ALLERGIES Substance Reaction Event Type Date Status Penicillin G Potassium anaphylaxis Drug Allergy Jan, Active Codeine Sulfate anaphylaxis Drug Allergy Jan, Active Aspirin hives Drug Allergy Jan, Active Peanut hives Non Drug Allergy Jan, Active ENCOUNTERS Encounter Location Date Diagnosis [facility] [address] [facility] [id number], [place] [address] Jul, [facility] [address] [facility] [id number], [place] [address] Jun, [facility] [address] [facility] [id number], [place] [address] May, [facility] [address] [id number] [address] May, [facility] [address] [address] May, Acute nasopharyngitis J00 [facility] [address], [place] [address] May, [facility] [address], [place] [address] May, [facility] [address], [place] [address] 9672 Apr, [facility] [id number] [place] [address]- 0504 Apr, [facility] [address], [place] [address] Apr, [facility] [id number] [place] [address]807- 4487 Apr, [facility] [address], [place] [address] Apr, Pain in right ankle and joints of right foot M25.571 [facility] [address], [place] [address] Apr, [facility] [address], [place] [address] 18 Apr, 2018 Bronchitis J40 ; Pain in right ankle and joints of right foot M25.571 ; Other chronic pain G89.29 ; Prediabetes R73.03 ; Chronic obstructive pulmonary disease, unspecified COPD type J44.9 and Cigarette nicotine dependence without complication F17.210 [facility] [address], [place] [address] 13 Apr, 2018 Seasonal allergic rhinitis, unspecified trigger J30.2 [facility] [address], [place] [address] 08 Apr, 2018 Onychomycosis B35.1 ; Onychocryptosis L60.0 and DM 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 [place] [id number] [place] [address]- 2608 Apr, Reactive depression F32.9 ; Thoracic myofascial strain, initial encounter S29.019A and Leg cramps R25.2 [place] [address] [address] March, [place] [address] [address]- 47[address] March, Type 2 diabetes mellitus with hyperglycemia E11.65 [place] [address] [address]- [address] March, Reactive depression F32.9 [place] [address] [address]- 2046 March, Pain in thoracic spine M54.6 and Other chronic pain G89.29 [place] [address] [address]- 49[address] Feb, [place] [address] [address]- 5064 Jan, Reactive depression F32.9 ; Essential hypertension I10 ; Gastroesophageal reflux disease, esophagitis presence not specified K21.9 ; Lumbago with sciatica, left side M54.42 and Lumbago with sciatica, right side M54.41 [place] [id number] [place] [address]- 3061 Jan, Reactive depression F32.9 and Pharyngoesophageal dysphagia R13.14 [place] [address] [address]- 2323 Jan, [place] [address] [address]- 6871 Jan, Encounter for immunization Z23 [place] [address] [address]- [address]225 Jan, Onychomycosis B35.1 and DM 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 [facility] [id number] [place] [address] 81867- 9118 Jan, [facility] [id number] [place] [address] 14811- 9945 Jan, Prediabetes R73.03 [facility] [address] [address]- 6[address] Dec, [facility] [address] [address]- 3784 Dec, Essential hypertension I10 ; Mixed hyperlipidemia E78.2 ; Acquired hypothyroidism E03.9 ; Reactive depression F32.9 and Prediabetes R73.03 [place] [address] 43291- 1847 Dec, [place] [address] 76[address]- 0816 Dec, [facility] [id number] [place] [address]12- 9409 Dec, DM 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 [facility] [id number] [place] [address]483 -6764 Dec, Bruise T14.8XXA ; Type 2 diabetes mellitus with hyperglycemia E11.65 and custodial current use of insulin Z79.4 [facility] [id number] [place] [address] 83682- 8994 Oct, [facility] [address] 6[address]- 8684 March, Onychomycosis B35.1 and DM neuro manif type II E11.49 [facility] [id number] [place] [address] 80170- 9363 Jun, [facility] [address] [address]- 2847 Jun, [facility] [address] [id number] [place] [address]- 9090 Jun, COPD with acute exacerbation 491.21 [facility] [address] [id number] [place] [address]- 7261 15 Apr, 2015 [facility] [address] [facility] [id number] [place] [address]- 1044 14 Feb, 2015 [facility] [address] [id number] [place] [address]- 0260 Feb, [facility] [address] [facility] [id number] [place] [address]- 4289 Jan, [facility] [address] [facility] [id number] [place] [address]- 2832 Jan, [facility] [address] [facility] [id number] [place] [address]- 4074 Jan, [facility] [address] [facility] [id number] [place] [address]- 7255 Jan, [facility] [address] [facility] [id number] [place] [address]- 1836 Jan, [facility] [address] [facility] [id number] [place] [address]- 9095 Jan, [facility] [address] [facility] [id number], [place] [address]- 5519 Jan, [facility] [place] [facility] [address] [id number], [place] [address]- 0628 Jan, [facility] [place] [facility] [address] [id number], [place] [address]- 0380 Jan, [facility] [place] [facility] [address] [facility] [id number], [place] [address]- 9158 Jan, [facility] [place] [facility] [address] [facility] [id number], [place] [address]- 1334 Jan, [facility] [place] [facility] [address] [id number] [place] [address]- 9238 18 Jan, 2014 [facility] [place] [facility] [address] [id number] [place] [address]- 9891 18 Jan, 2015 [facility] [place] [facility] [address] [id number] [place] [address]- 1306 16 Jan, 2014 [facility] [place] [facility] [address] [id number] [place] [address]- 9426 16 Jan, 2014 [facility] [place] [facility] [address] [id number] [place] [address]- 5968 16 Jan, 2014 [facility] [place] [facility] [address] [id number] [place] [address]- 8663 16 Jan, 2014 [facility] [place] [facility] [address] [id number] [place] [address]- 3471 15 Jan, 2015 [facility] [place] [facility] [address] [id number] [place] [address]- 5213 13 Jan, 2014 [facility] [place] [facility] [address] [id number] [place] [address]- 3635 13 Jan, 2015 [facility] [place] [facility] [address] [id number] [place] [address]- 9921 13 Jan, 2015 [facility] [place] [facility] [address] [id number] [place] [address]- 1293 13 Jan, 2015 [facility] [place] [facility] [address] [id number] [place] [address]- 8473 12 Jan, 2015 [facility] [place] [facility] [address] [id number] [place] [address]- 1528 04 Jan, 2015 [facility] [place] [facility] [address] [id number] [place] [address]- 6542 04 Jan, 2015 [facility] [place] [facility] [address] [id number] [place] [address]- 8438 24 Dec, 2014 [facility] [place] [facility] [address] [id number] [place] [address]- 6569 Dec, 2014 [facility] [place] [facility] [address] [id number] [place] [address]- 1737 Dec, 2014 [facility] [place] [facility] [address] [id number] [place] [address]- 1216 Dec, 2014 [facility] [place] [facility] [address] [facility] [id number] [place] [address]- 4706 Dec, 2014 [facility] [place] [facility] [address] [id number] [place] [address]- 9978 Dec, 2014 [facility] [place] [facility] [address] [id number] [place] [address]- 5298 Dec, 2014 [facility] [place] [facility] [address] [facility] [id number] [place] [address]- 6097 Dec, 2014 [facility] [place] [facility] [address] [facility] [id number] [place] [address]- 9309 Dec, 2014 [facility] [place] [facility] [address] [facility] [id number] [place] [address]- 5460 Dec, [facility] [place] [facility] [address] [facility] [id number] [place] [address]- 1635 Dec, [facility] [place] [facility] [address] [facility] [id number] [place] [address]- 4421 Dec, [facility] [place] [facility] [address] [facility] [id number] [place] [address]- 0937 Nov, [facility] [place] [facility] [address] [facility] [id number], [place] [address]- 7545 Nov, [facility] [place] [facility] [address] [facility] [id number], [place] [address]- 0142 Nov, [facility] [place] [facility] [address] [facility] [id number], [place] [address]- 8772 Nov, [facility] [place] [facility] [address] [facility] [id number], [place] [address]- 5117 Nov, [facility] [place] [facility] [address] [id number] [place] [address]- 1513 Nov, [facility] [place] [facility] [address] [id number] [place] [address]- 0598 Nov, [facility] [place] [facility] [address] [id number] [place] [address]- 1715 Nov, [facility] [place] [facility] [address] [id number] [place] [address]- 9991 Nov, [facility] [place] [facility] [address] [id number] [place] [address]- 6118 Nov, [facility] [place] [facility] [address] [id number] [place] [address]- 5969 Nov, [facility] [address] [id number] [place] [address]- 9042 Nov, [facility] [address] [id number] [place] [address]- 6964 Oct, [facility] [place] [facility] [address] [id number] [place] [address]- 0222 Oct, [facility] [place] [facility] [address] [id number] [place] [address]- 7171 Oct, [facility] [place] [facility] [address] [id number] [place] [address]- 7591 Oct, [facility] [place] [facility] [address] [id number] [place] [address]- 1081 Oct, [facility] [place] [facility] [address] [id number] [place] [address]- 3147 Oct, [facility] [place] [facility] [address] [id number] [place] [address]- 3198 Oct, [facility] [place] [facility] [address] [id number] [place] [address]- 8547 Oct, [facility] [place] [facility] [address] [id number] [place] [address]- 5296 17 Oct, 2014 [facility] [place] [facility] [address] [id number] [place] [address]- 0822 17 Oct, 2014 [facility] [place] [facility] [address] [id number] [place] [address]351 16 Oct, 2014 [facility] [place] [facility] [address] [id number] [place] [address]- 1454 16 Oct, 2014 [facility] [place] [facility] [address] [id number] [place] [address]- 7939 15 Oct, 2014 [facility] [place] [facility] [address] [id number] [place] [address]- 3868 15 Oct, 2014 [facility] [place] [facility] [address] [id number] [place] [address]- 4212 Oct, [facility] [place] [facility] [address] [id number] [place] [address]- 6087 Sep, [facility] [place] [facility] [address] [id number] [place] [address]- 3254 Sep, [facility] [place] [facility] [address] [id number] [place] [address]- 4664 Sep, [facility] [place] [facility] [address] [id number] [place] [address]- 0265 Sep, [facility] [place] [facility] [address] [id number] [place] [address]- 0742 Aug, [facility] [place] [facility] [address] [id number], [place] [address]- 1499 Aug, [facility] [place] [facility] [address] [id number] [place] [address]- 0839 Aug, [facility] [place] [facility] [address] [id number] [place] [address]- 4820 Aug, [facility] [place] [facility] [address] [id number] [place] [address]- 1528 Aug, [facility] [place] [facility] [address] [id number] [place] [address]- 2270 07 Aug, 2014 [facility] [place] [facility] [address] [id number] [place] [address]- 8749 29 Jul, 2014 [facility] [place] [facility] [address] [id number] [place] [address]- 8996 29 Jul, 2014 [facility] [place] [facility] [address] [id number] [place] [address]- 5586 15 Jul, 2014 [facility] [place] [facility] [address] [id number] [place] [address]- 2636 15 Jul, 2014 [facility] [place] [facility] [address] [id number] [place] [address]- 0474 08 Jul, 2014 [facility] [place] [facility] [address] [id number] [place] [address]- 3007 Jul, [facility] [place] [facility] [address] [id number] [place] [address]- 4622 Jun, [facility] [place] [facility] [address] [id number] [place] [address]- 3382 Jun, [facility] [place] [facility] [address] [id number] [place] [address]- 0219 Jun, [facility] [place] [facility] [address] [id number] [place] [address]- 0373 Jun, [facility] [place] [facility] [address] [id number] [place] [address]- 9022 Jun, [facility] [place] [facility] [address] [id number] [place] [address]- 6585 Jun, [facility] [place] [facility] [address] [id number] [place] [address]- 3161 Jun, [facility] [place] [facility] [address] [id number] [place] [address]- 6464 May, [facility] [place] [facility] [address] [id number] [place] [address]- 5449 May, [facility] [place] [facility] [address] [id number] [place] [address]- 9609 May, [facility] [place] [facility] [address] [id number] [place] [address]- 5218 May, [facility] [place] [facility] [address] [id number] [place] [address]- 2423 May, 2013 [facility] [place] [facility] [address] [id number] [place] [address]- 7111 May, 2013 [facility] [place] [facility] [address] [id number] [place] [address]- 4309 May, [facility] [place] [facility] [address] [id number] [place] [address]- 8876 May, [facility] [place] [facility] [address] [id number] [place] [address]- 5175 May, [facility] [place] [facility] [address] [id number] [place] [address]- 8036 May, [facility] [place] [facility] [address] [id number] [place] [address]- 4578 May, [facility] [place] [facility] [address] [id number] [place] [address]- 3382 May, [facility] [place] [facility] [address] [id number] [place] [address]- 7628 Apr, [facility] [place] [facility] [address] [id number] [place] [address]- 7305 Apr, [facility] [place] [facility] [address] [id number] [place] [address]- 0204 Apr, [facility] [place] [facility] [address] [id number] [place] [address]- 8935 Apr, [facility] [place] [facility] [address] [id number] [place]148 Apr, [facility] [place] [facility] [address] [id number] [place] [address]- 6976 Apr, [facility] [place] [facility] [address] [id number] [place] [address]- 3301 Apr, [facility] [place] [facility] [address] [id number] [place] [address]- 0546 Apr, [facility] [place] [facility] [address] [id number] [place] [address]- 3561 Apr, [facility] [place] [facility] [address] [id number] [place] [address]- 5097 Apr, [facility] [place] [facility] [address] [id number] [place] [address]- 0688 March, [facility] [place] [facility] [address] [id number] [place] [address]- 1161 March, [facility] [place] [facility] [address] [id number] [place] [address]- 4039 March, [facility] [place] [facility] [address] [id number] [place] [address]- 6782 March, [facility] [place] [facility] [address] [id number] [place] [address]- 2672 March, [facility] [place] [facility] [address] [id number] [place] [address]- 1235 March, [facility] [place] [facility] [address] [id number] [place] [address]- 0213 Feb, [facility] [place] [facility] [address] [id number] [place] [address]- 4393 Feb, [facility] [place] [facility] [address] [id number] [place] [address]- 1723 Feb, [facility] [place] [facility] [address] [id number] [place] [address]- 1860 Feb, [facility] [place] [facility] [address] [id number] [place] [address]- 9667 Feb, [facility] [place] [facility] [address] [id number] [place] [address]- 3943 Feb, [facility] [place] [facility] [address] [id number] [place] [address]- 3584 Feb, [facility] [place] [facility] [address] [id number] [place] [address]- 2678 Feb, [facility] [place] [facility] [address] [id number] [place] [address]- 7850 Feb, [facility] [place] [facility] [address] [id number] [place] [address]- 3764 Feb, [facility] [place] [facility] [address] [id number] [place] [address]- 3918 Jan, [facility] [place] [facility] [address] [id number] [place] [address]- 5984 Jan, [facility] [place] [facility] [address] [id number] [place] [address]- 5607 Jan, [facility] [place] [facility] [address] [id number] [place] [address]- 9510 Jan, [facility] [place] [facility] [address] [id number] [place] [address]- 3912 Jan, [facility] [place] [facility] [address] [id number] [place] [address]- 0912 Jan, [facility] [place] [facility] [address] [id number] [place] [address]- 2444 Jan, [facility] [place] [facility] [address] [id number] [place] [address]- 8324 Jan, [facility] [place] [facility] [address] [id number] [place] Dec, [facility] [place] [facility] [address] [id number] [place] [address]- 1138 Dec, [facility] [place] [facility] [address] [id number] [place] [address] Dec, [facility] [place] [facility] [address] [id number] [place] [address] Dec, [facility] [place] [facility] [address] [id number] [place] [address] Dec, [facility] [place] [facility] [address] [id number] [place] [address] Dec, [facility] [place] [facility] [address] [id number] [place] [address] Dec, [facility] [place] [facility] [address] [id number] [place] [address] Dec, [facility] [place] [facility] [address] [id number] [place] [address] Nov, [facility] [place] [facility] [address] [id number] [place] [address] Nov, [facility] [place] [facility] [address] [id number] [place] [address] Nov, [facility] [place] [facility] [address] [id number] [place] [address] Nov, [facility] [place] [facility] [address] [facility] [id number] [place] [address] Nov, [facility] [place] [facility] [address] [id number] [place] [address] Nov, [facility] [place] [facility] [address] [id number], [place] [address] Nov, [facility] [place] [facility] [address] [id number] [place] [address] Nov, [facility] [place] [facility] [address] [id number] [place] [address]99 Nov, [facility] [place] [facility] [address] [id number] [place] [address] Nov, [facility] [place] [facility] [address] [id number] [place] [address] Nov, [facility] [place] [facility] [address] [id number] [place] [address] Oct, [facility] [place] [facility] [address] [id number] [place] [address] 4044 Oct, [facility] [place] [facility] [address] [id number] [place] [address] Oct, [facility] [place] [facility] [address] [id number] [place] [address] Oct, [facility] [place] [facility] [address] [id number] [place] [address] Sep, [facility] [place] [facility] [address] [id number] [place] [address] Sep, [facility] [place] [facility] [address] [id number] [place] [address] Sep, [facility] [place] [facility] [address] [id number] [place] [address] 39[address] Sep, [facility] [place] [facility] [address] [id number] [place] [address] Aug, [facility] [place] [facility] [address] [id number] [place] [address] Aug, [facility] [place] [facility] [address] [id number] [place] [address] Aug, [facility] [place] [facility] [address] [id number] [place] [address] Aug, [facility] [place] [facility] [address] [id number] [place] [address] Aug, [facility] [place] [facility] [address] [id number] [place] [address] Aug, [facility] [place] [facility] [address] [id number] [place] [address] 04 Aug, 2013 [facility] [place] [facility] [address] [id number] [place] [address] Aug, [facility] [place] [facility] [address] [id number] [place] [address]40 28 Jul, 2012 [facility] [place] [facility] [address] [id number] [place] [address] 27 Jul, 2012 [facility] [place] [facility] [address] [id number] [place] [address] 26 Jul, 2012 [facility] [place] [facility] [address] [id number] [place] [address] 24 Jul, 2012 [facility] [place] [facility] [address] [id number] [place] [address]96 24 Jul, 2012 [facility] [place] [facility] [address] [id number] [place] [address] 23 Jul, 2012 [facility] [place] [facility] [address] [id number], [place] [address] 19 Jul, 2012 [facility] [place] [facility] [address] [id number] [place] [address] 18 Jul, 2012 [facility] [place] [facility] [address] [id number] [place] [address] 17 Jul, 2012 [facility] [place] [facility] [address] [id number], [place] [address] 16 Sep, 2012 [facility] [place] [facility] [address] [id number], [place] [address] 13 Jul, 2012 [facility] [place] [facility] [address] [id number] [place] [address] 13 Jul, 2012 [facility] [place] [facility] [address] [id number], [place] [address] 12 Jul, 2012 [facility] [place] [facility] [address] [id number], [place] [address] 11 Jul, 2012 [facility] [place] [facility] [address] [id number] [place] [address] Jul, [facility] [address] [id number] [place] [address] Jun, [facility] [place] [facility] [address] [id number] [place] [address] 7698 Jun, [facility] [address] [id number] [place] [address] Jun, [facility] [place] [facility] [address] [id number] [place] [address] May, [facility] [address] [id number] [place] [address] May, [facility] [place] [facility] [address] [id number] [place] [address]- [address] May, [facility] [facility] [address] [id number] [place] [address] May, [facility] [place] [facility] [address] [id number] [place] [address] Apr, [facility] [place] [facility] [address] [id number] [place] [address] Apr, [facility] [place] [facility] [address] [id number] [place] [address] Apr, [facility] [place] [facility] [address] [id number] [place] [address] Apr, [facility] [place] [facility] [address] [id number] [place] [address] March, [facility] [place] [facility] [address] [id number] [place] [address] March, [facility] [place] [facility] [address] [id number] [place] [address] March, [facility] [place] [facility] [address] [id number] [place] [address] 8425 Feb, [facility] [place] [facility] [address] [id number] [place] [address] 1491 Feb, [facility] [place] [facility] [address] [id number] [place] [address] Jan, [facility] [place] [facility] [address] [id number] [place] [address] Jan, [facility] [place] [facility] [address] [id number] [place] [address] 59[address] Jan, [facility] [place] [facility] [address] [id number] [place] [address]- 6[address] 05 Jan, 2013 [facility] [place] [facility] [address] [id number] [place] [address] Jan, [facility] [address] [id number] [place] [address] 6703 Dec, [facility] [place] [facility] [address] [id number] [place] [address] Dec, [facility] [place] [facility] [address] [id number] [place] [address]- 2583 Dec, [facility] [place] [facility] [address] [facility] [id number] [place] [address] 3550 Dec, [facility] [place] [facility] [address] [id number] [place] [address] 8560 Dec, [facility] [place] [facility] [address] [id number], [place] [address] Dec, [facility] [place] [facility] [address] [id number] [place] [address]- 1204 Dec, [facility] [place] [facility] [address] [id number] [place] [address] 56[address] Dec, [facility] [place] [facility] [address] [id number] [place] [address] 6077 Nov, [facility] [place] [facility] [address] [id number] [place] [address] 8040 Nov, [facility] [address] [id number] [place] [address] 8144 Nov, [facility] [place] [facility] [address] [id number] [place] [address]- 7586 Nov, [facility] [address] [id number] [place] [address] 6[address] Nov, [facility] [place] [facility] [address] [id number] [place] [address]- 7588 Nov, [facility] [address] [id number] [place] [address] 7328 Nov, [facility] [address] [id number] [place] [address]- 3077 Oct, [facility] [address] [id number] [place] [address] 5434 Oct, [facility] [address] [id number] [place] [address]- 1125 Oct, [facility] [place] [facility] [address] [id number] [place] [address]- 4595 Oct, [facility] [address] [id number] [place] [address]- 0431 Oct, [facility] [place] [facility] [address] [id number] [place] [address] 4126 Oct, [facility] [place] [facility] [address] [id number] [place] [address]- 0551 Oct, [facility] [place] [facility] [address] [id number] [place] [address] 9650 Oct, [facility] [place] [facility] [address] [id number] [place] [address] 3832 Sep, [facility] [place] [facility] [address] [id number] [place] [address] 9064 Sep, [facility] [place] [facility] [address] [id number] [place] [address]- 1199 Sep, [facility] [place] [facility] [address] [id number] [place] [address]- 6125 Sep, [facility] [place] [facility] [address] [id number] [place] [address] 8847 Sep, [facility] [place] [facility] [address] [id number] [place] [address]- 1444 Sep, [facility] [place] [facility] [address] [id number] [place] [address] 7387 Sep, [facility] [place] [facility] [address] [id number] [place] [address]- 0157 Sep, [facility] [place] [facility] [address] [id number] [place] [address]- 8138 Sep, [facility] [place] [facility] [address] [id number] [place] [address]- 6268 Sep, [facility] [place] [facility] [address] [id number] [place] [address]- 4144 Sep, [facility] [place] [facility] [address] [id number] [place] [address]- 1501 Sep, [facility] [place] [facility] [address] [id number] [place] [address]- 1298 Sep, [facility] [place] [facility] [address] [id number] [place] [address]- 4628 Sep, [facility] [place] [facility] [address] [id number] [place] [address]- 5111 Sep, [facility] [place] [facility] [address] [id number] [place] [address]- 1771 Sep, [facility] [place] [facility] [address] [id number] [place] [address]- 8534 Sep, [facility] [place] [facility] [address] [id number] [place] [address]- 2546 Sep, [facility] [place] [facility] [address] [id number] [place] [address] Sep, [facility] [place] [facility] [address] [id number] [place] [address]- 6223 Sep, [facility] [place] [facility] [address] [id number] [place] [address]- 9075 Aug, [facility] [place] [facility] [address] [id number] [place] [address] Aug, [facility] [place] [facility] [address] [id number] [place] [address]- 3566 29 Aug, 2012 [facility] [place] [facility] [address] [id number] [place] [address]- 7193 Aug, [facility] [place] [facility] [address] [id number] [place] [address]- 8199 Aug, [facility] [place] [facility] [address] [id number] [place] [address] 8459 Aug, [facility] [place] [facility] [address] [id number] [place] [address]- 5228 18 Aug, 2012 [facility] [place] [facility] [address] [id number] [place] [address]- 9127 17 Aug, 2012 [facility] [place] [facility] [address] [id number], [place] [address] 16 Aug, 2012 [facility] [place] [facility] [address] [id number], [place] [address] 16 Aug, 2012 [facility] [place] [facility] [address] [id number] [place] [address]- 5789 15 Aug, 2012 [facility] [place] [facility] [address] [id number], [place] [address] 7353 09 Aug, 2012 [facility] [place] [facility] [address] [id number] [place] [address]- 5250 05 Aug, 2012 [facility] [place] [facility] [address] [id number] [place] [address]- 2546 Aug, [facility] [address] [id number] [place] [address]- 9822 Aug, [facility] [place] [facility] [address] [id number] [place] [address]- 2546 14 Jul, 2012 [facility] [address] [id number] [place] [address]- 1600 Jul, [facility] [place] [facility] [address] [id number] [place] [address]- 2957 Jun, [facility] [address] [id number] [place] [address]- 0357 Jun, [facility] [place] [facility] [address] [id number] [place] [address] 1962 May, [facility] [place] [facility] [address] [id number] [place] [address]- 3275 May, [facility] [address] [id number] [place] [address]- 5462 May, [facility] [place] [facility] [address] [id number] [place] [address]- 1076 May, [facility] [address] [id number] [place] [address]- 2746 May, [facility] [place] [facility] [address] [id number] [place] [address]- 0591 May, [facility] [place] [facility] [address] [id number] [place] [address]- 8464 Apr, [facility] [place] [facility] [address] [id number] [place] [address]- 4639 Apr, [facility] [place] [facility] [address] [id number] [place] [address] 1956 March, [facility] [place] [facility] [address] [id number] [place] March, [facility] [address] [id number] [place] [address]- 8554 March, [facility] [place] [facility] [address] [id number] [place] [address]- 2932 March, [facility] [place] [facility] [address] [id number] [place] [address]- 4014 March, [facility] [place] [facility] [address] [id number] [place] [address]- 2140 March, [facility] [address] [id number] [place] [address]- 2604 Feb, [facility] [place] [facility] [address] [id number] [place] [address]- 5686 Feb, [facility] [place] [facility] [address] [id number] [place] [address]- 0350 Feb, [facility] [place] [facility] [address] [id number] [place] [address]- 7622 Feb, [facility] [place] [facility] [address] [id number] [place] [address]- 6635 Feb, [facility] [place] [facility] [address] [id number] [place] [address]- 3216 Feb, [facility] [place] [facility] [address] [id number] [place] [address]- 4342 Feb, [facility] [place] [facility] [address] [id number], [place] [address] 8[address] Feb, [facility] [place] [facility] [address] [id number] [place] [address]- 4392 Feb, [facility] [place] [facility] [address] [id number] [place] [address]- 4927 Jan, [facility] [place] [facility] [address] [id number] [place] [address]- 1679 Jan, [facility] [place] [facility] [address] [id number], [place] [address]- 1321 26 Jan, 2012 [facility] [address] [id number] [place] [address]- 5939 22 Jan, 2012 [facility] [place] [facility] [address] [id number] [place] [address]- 2346 21 Jan, 2012 [facility] [place] [facility] [address] [facility] [id number] [place] [address]- 4686 20 Jan, 2012 [facility] [place] [facility] [address] [id number] [place] [address]- 3177 14 Jan, 2012 [facility] [place] [facility] [address] [id number] [place] [address]- 1260 09 Jan, 2012 [facility] [place] [facility] [address] [facility] [id number] [place] [address]- 4012 09 Jan, 2012 [facility] [address] [id number] [place] [address]- 5343 08 Jan, 2012 [facility] [place] [facility] [address] [facility] [id number] [place] [address]- 1025 07 Jan, 2012 [facility] [place] [facility] [address] [facility] [id number] [place] [address]- 7334 06 Jan, 2012 [facility] [place] [facility] [address] [facility] [id number] [place] [address]- 7718 Jan, [facility] [place] [facility] [address] [id number] [place] [address]- 5792 Jan, [facility] [place] [facility] [address] [facility] [id number] [place] [address]- 4780 Dec, [facility] [place] [facility] [address] [id number] [place] [address]- 2413 Dec, [facility] [place] [facility] [address] [facility] [id number] [place] [address]- 6866 Dec, [facility] [place] [facility] [address] [facility] [id number] [place] [address]- 8211 Dec, [facility] [place] [facility] [address] [id number] [place] [address]- 6302 16 Dec, 2011 [facility] [place] [facility] [address] [id number] [place] [address]- 5926 08 Dec, 2011 [facility] [place] [facility] [address] [id number] [place] [address] 2546 08 Dec, 2011 [facility] [place] [facility] [address] [id number] [place] [address] 2546 Dec, [facility] [place] [facility] [address] [id number] [place] [address] 2549 Dec, [facility] [place] [facility] [address] [id number] [place] [address]- 8634 Nov, [facility] [place] [facility] [address] [id number] [place] [address]- 8320 Nov, [facility] [place] [facility] [address] [id number] [place] [address]- 1734 Nov, [facility] [place] [facility] [address] [id number] [place] [address]- 3707 Nov, [facility] [place] [facility] [address] [id number] [place] [address]- 4054 Oct, [facility] [place] [facility] [address] [id number] [place] [address] 2546 Oct, [facility] [place] [facility] [address] [id number] [place] [address] 2546 Oct, [facility] [place] [facility] [address] [id number] [place] [address] 2546 23 Oct, 2011 [facility] [place] [facility] [address] [id number] [place] [address] 2546 13 Oct, 2011 [facility] [place] [facility] [address] [id number] [place] [address]- 2546 12 Oct, 2011 [facility] [place] [facility] [address] [id number] [place] [address]- 2172 Oct, [facility] [place] [facility] [address] [id number] [place] [address]- 4347 Sep, [facility] [place] [facility] [address] [id number] [place] [address]- 3211 Sep, [facility] [place] [facility] [address] [id number] [place] [address]- 5141 Sep, [facility] [place] [facility] [address] [id number] [place] [address]- 6106 Sep, [facility] [place] [facility] [address] [id number] [place] [address], [place] [address]- 6128 Sep, [facility] [place] [facility] [address] [id number] [place] [address]- 3800 Sep, [facility] [place] [facility] [address] [id number] [place] [address]- 8877 Sep, [facility] [place] [facility] [address] [id number] [place] [address]- 9273 Sep, [facility] [place] [facility] [address] [id number] [place] [address]- 0139 Sep, [facility] [place] [facility] [address] [id number] [place] [address]- 7432 Aug, [facility] [place] [facility] [address] [id number] [place] [address]- 3365 Aug, [facility] [place] [facility] [address] [id number] [place] [address]- 3191 Aug, [facility] [place] [facility] [address] [id number] [place] [address]- 8350 May, [facility] [place] [facility] [address] [id number] [place] [address]- 9584 Nov, [facility] [place] [facility] [address] [id number] [place] [address]- 2700 Oct, [facility] [place] [facility] [address] [id number] [place] [address]- 4626 30 Oct, 2010 [facility] [place] [facility] [address] [id number] [place] [address]- 1696 30 Oct, 2010 [facility] [place] [facility] [address] [id number] [place] [address]- 2546 Oct, [facility] [place] [facility] [address] [id number] [place] [address] 2546 Oct, [facility] [place] [facility] [address] [id number] [place] [address]- 2546 Sep, [facility] [place] [facility] [address] [id number] [place] [address]- 7686 Sep, [facility] [address] [id number] [place] [address]- 7347 14 Jul, 2010 [facility] [place] [facility] [address] [id number] [place] [address]- 7510 Oct, [facility] [address] [id number] [place] [address]- 1123 Oct, [facility] [place] [facility] [address] [id number] [place] [address] 2546 Oct, [facility] [place] [facility] [address] [facility] [id number] [place] [address]- 3666 Oct, [facility] [place] [facility] [address] [id number] [place] [address] 2546 Sep, [facility] [place] [facility] [address] [id number] [place] [address] 2546 Sep, [facility] [place] [facility] [address] [id number] [place] [address]- 2546 Sep, [facility] [place] [facility] [address] [id number] [place] [address]- 2546 04 Sep, 2009 [facility] [place] [facility] [address] [id number], [place] [address]- 2866 Sep, [facility] [address] [facility] [id number] [place] [address]- 8905 Jul, [facility] [address] [facility] [id number], [place] [address]- 0076 Apr, [facility] [address] [facility] [id number] [place] [address]- 0372 Dec, IMMUNIZATIONS No Known Immunizations SOCIAL HISTORY Never Assessed REASON FOR VISIT VC ER f/u from yesterday with chest pain-Loy ABAD PLAN OF CARE Activity Details Follow Up Regular appt Reason: VITAL SIGNS Height 67 in 2018-02-16 Weight 189.3 lbs 2018-02-16 Temperature 98.1 degrees Fahrenheit 2018-02-16 Heart Rate 78 bpm 2018-02-16 Respiratory Rate 18 2018-02-16 BMI 29.65 kg/m2 2018-02-16 Blood pressure systolic 128 mmHg 2018-02-16 Blood pressure diastolic 72 mmHg 2018-02-16 MEDICATIONS Medication Instructions Dosage Frequency Start Date End Date Duration Status Test strips as directed Dec, Active Metformin HCl 500 MG Orally Twice a day 1 tablet with meals 12h Active Lisinopril 5 MG Orally Once a day 1 tablet 24h Active Meloxicam 15 MG Orally Once a day 1 tablet 24h Active Gabapentin 300 MG Orally Once a day 1 capsule before bedtime 24h Active Combivent Respimat 20-100 mcg/actuation inhale 1 puff ; may take additional puffs as needed 4 times per day not to exceed 6 puffs in 24hrs Apr, Active Loratadine 10 mg take 1 tablet by Oral route 1 time per day take at hs Nov, Active Symbicort 80-4.5 mcg/actuation inhale 2 puffs by inhalation route 2 times per day in the morning and evening March, Active Amlodipine Besylate 5 MG Orally Once a day 1 tablet 24h Active Atorvastatin Calcium 40 MG Orally Once a day 1 tablet 24h Active HydrOXYzine HCl 10 MG Active Prozac 40 mg Orally Once a day 1 capsule 24h Jan, 30 day(s) Active Nitroglycerin 0.[address] 1 tablet by Buccal route 1 time per day until relief is obtained PRN March, Active levothyroxine 50 mcg 1 tablet by Oral route 1 time per day NEW DOSE Dec, Active One Touch Promise Herrera - as directed Dec, Active Clopidogrel Bisulfate 75 MG Orally Once a day 1 tablet 24h Active Accu-Chek Ranjana SmartView w/Device as directed Dec, Active ProAir HFA 90 mcg/actuation inhale 2 puffs by Inhalation route every 4 hours as needed PRN shortness of breath/cough March, Active RESULTS No Results PROCEDURES No Known procedures INSTRUCTIONS MEDICATIONS ADMINISTERED No Known Medications MEDICAL (GENERAL) HISTORY Type Description Date Medical History hypertension Medical History hyperlipidemia Medical History diabetes type II Medical History COPD Medical History asthma Surgical History hysterectomy Surgical History arthritis surgery Hospitalization History surgeries
--- OUTSIDE RECORDS SUMMARY | 2018-11-26 16:12 | XMS REPORT ---
Author Author LOKI DENIA Organization [facility] Address [address] [place] [address] Care Team Providers Care Lead Sprinkler Name Role Phone CORBY MANJARREZIN Unavailable PROBLEMS Type Condition ICD9-CM Code HHG35-DN Code Onset Dates Condition Status SNOMED Code Problem Essential hypertension I10 Active 00286550 Problem Lumbago with sciatica, left side M54.42 Active 434965127 Problem Acquired hypothyroidism E03.9 Active 710206293 Problem Prediabetes R73.03 Active 831594517 Problem Reactive depression F32.9 Active 86875946 Problem Mixed hyperlipidemia E78.2 Active 585039145 Problem Pain in right ankle and joints of right foot M25.571 Active 24490773212684 Problem Chronic obstructive pulmonary disease, unspecified COPD type J44.9 Active 49141437 Problem Gastroesophageal reflux disease, esophagitis presence not specified K21.9 Active 645415115 Problem Lumbago with sciatica, right side M54.41 Active 10038895121831819 Problem Cigarette nicotine dependence without complication F17.210 Active 66559853 Problem Other chronic pain G89.29 Active 30138914 ALLERGIES Substance Reaction Event Type Date Status Penicillin G Potassium anaphylaxis Drug Allergy Jan, Active Codeine Sulfate anaphylaxis Drug Allergy Jan, Active Aspirin hives Drug Allergy Jan, Active Peanut hives Non Drug Allergy Jan, Active ENCOUNTERS Encounter Location Date Diagnosis [facility] [address] [facility] [id number], [place] [address] Jul, [facility] [address] [facility] [id number], [place] [address] Jun, [facility] [address] [facility] [id number], [place] [address] May, [facility] [address] [id number] [address] May, [facility] [address] [address] May, Acute nasopharyngitis J00 [facility] [address] [address] May, [facility] [address], [place] [address] May, [facility] [address] [address] Apr, [facility] [id number] [place] [address]- 5156 Apr, [facility] [address], [place] [address] Apr, [facility] [id number] [place] [address]- [address]68 Apr, [facility] [address], [place] [address] Apr, Pain in right ankle and joints of right foot M25.571 [facility] [address], [place] [address] Apr, [facility] [address], [place] [address] 18 Apr, 2018 Bronchitis J40 ; Pain in right ankle and joints of right foot M25.571 ; Other chronic pain G89.29 ; Prediabetes R73.03 ; Chronic obstructive pulmonary disease, unspecified COPD type J44.9 and Cigarette nicotine dependence without complication F17.210 [facility] [address], [place] [address] 13 Apr, 2018 Seasonal allergic rhinitis, unspecified trigger J30.2 [facility] [address], [place] [address] 08 Apr, 2018 Onychomycosis B35.1 ; Onychocryptosis L60.0 and DM neuro manif type II E11.49 [facility] [id number] [place] [address] 4252 Apr, Reactive depression F32.9 ; Thoracic myofascial strain, initial encounter S29.019A and Leg cramps R25.2 [facility] [address] [address] March, [facility] [address] [address] March, Type 2 diabetes mellitus with hyperglycemia E11.65 [facility] [address] [address]- 1302 March, Reactive depression F32.9 [facility] [address] [address]- [address]177 March, Pain in thoracic spine M54.6 and Other chronic pain G89.29 [facility] [address] [address]- [address] Feb, [facility] [address] [address]- [address] Jan, Reactive depression F32.9 ; Essential hypertension I10 ; Gastroesophageal reflux disease, esophagitis presence not specified K21.9 ; Lumbago with sciatica, left side M54.42 and Lumbago with sciatica, right side M54.41 [facility] [id number] [place] [address]- 3842 Jan, Reactive depression F32.9 and Pharyngoesophageal dysphagia R13.14 [facility] [address] [address]- 6[address] Jan, [facility] [address] [address]- [address] Jan, Encounter for immunization Z23 [facility] [address] [address]- 6583 Jan, Onychomycosis B35.1 and DM neuro manif type II E11.49 [facility] [id number] [place] [address]- 8650 Jan, [facility] [id number] [place] [address]- 0960 Jan, Prediabetes R73.03 [facility] [address] [address]- [address] Dec, [facility] [address] [address]- [address] Dec, Essential hypertension I10 ; Mixed hyperlipidemia E78.2 ; Acquired hypothyroidism E03.9 ; Reactive depression F32.9 and Prediabetes R73.03 [facility] [address] [address]- 8630 Dec, [facility] [address] [address]- 9455 Dec, [facility] [id number] [place] [address]- 2829 Dec, DM neuro manif type II E11.49 [facility] [id number] [place] [address] Dec, Bruise T14.8XXA ; Type 2 diabetes mellitus with hyperglycemia E11.65 and USP current use of insulin Z79.4 [facility] [id number] [place] [address]- 4980 Oct, [facility] [address] [address]- 7557 March, Onychomycosis B35.1 and DM neuro manif type II E11.49 [facility] [id number] [place] [address]- 2965 Jun, [facility] [address] [address]- [address]247 Jun, [facility] [address] [id number] [place] [address]- 6830 Jun, COPD with acute exacerbation 491.21 [facility] [address] [id number] [place] [address]- 7541 15 Apr, 2015 [facility] [address] [facility] [id number] [place] [address]- 2927 14 Feb, 2015 [facility] [address] [id number] [place] [address]- 4292 Feb, [facility] [address] [facility] [id number] [place] [address]- 1091 Jan, [facility] [address] [facility] [id number] [place] [address]- 6612 Jan, [facility] [address] [facility] [id number] [place] [address]- 1746 Jan, [facility] [address] [facility] [id number] [place] [address]- 5237 Jan, [facility] [address] [facility] [id number] [place] [address]- 1583 Jan, [facility] [address] [facility] [id number] [place] [address]- 5612 Jan, [facility] [address] [facility] [id number], [place] [address]- 1856 Jan, [facility] [place] [facility] [address] [id number], [place] [address]- 4435 Jan, [facility] [place] [facility] [address] [id number], [place] [address]- 1117 Jan, [facility] [place] [facility] [address] [facility] [id number], [place] [address]- 7659 Jan, [facility] [place] [facility] [address] [facility] [id number], [place] [address]- 1816 Jan, [facility] [place] [facility] [address] [id number] [place] [address]- 3833 18 Jan, 2014 [facility] [place] [facility] [address] [id number] [place] [address]- 4771 18 Jan, 2015 [facility] [place] [facility] [address] [id number] [place] [address]- 6266 16 Jan, 2014 [facility] [place] [facility] [address] [id number] [place] [address]- 3686 16 Jan, 2014 [facility] [place] [facility] [address] [id number] [place] [address]- 6579 16 Jan, 2014 [facility] [place] [facility] [address] [id number] [place] [address]- 9582 16 Jan, 2014 [facility] [place] [facility] [address] [id number] [place] [address]- 8560 15 Jan, 2015 [facility] [place] [facility] [address] [id number] [place] [address]- 8353 13 Jan, 2014 [facility] [place] [facility] [address] [id number] [place] [address]- 8205 13 Jan, 2015 [facility] [place] [facility] [address] [id number] [place] [address]- 8489 13 Jan, 2015 [facility] [place] [facility] [address] [id number] [place] [address]- 2426 13 Jan, 2015 [facility] [place] [facility] [address] [id number] [place] [address]- 7149 12 Jan, 2015 [facility] [place] [facility] [address] [id number] [place] [address]- 9697 04 Jan, 2015 [facility] [place] [facility] [address] [id number] [place] [address]- 0327 04 Jan, 2015 [facility] [place] [facility] [address] [id number] [place] [address]- 2880 24 Dec, 2014 [facility] [place] [facility] [address] [id number] [place] [address]- 0210 Dec, 2014 [facility] [place] [facility] [address] [id number] [place] [address]- 8641 Dec, 2014 [facility] [place] [facility] [address] [id number] [place] [address]- 1586 Dec, 2014 [facility] [place] [facility] [address] [facility] [id number] [place] [address]- 4066 Dec, 2014 [facility] [place] [facility] [address] [id number] [place] [address]- 2089 Dec, 2014 [facility] [place] [facility] [address] [id number] [place] [address]- 9766 Dec, 2014 [facility] [place] [facility] [address] [facility] [id number] [place] [address]- 7323 Dec, 2014 [facility] [place] [facility] [address] [facility] [id number] [place] [address]- 0784 Dec, 2014 [facility] [place] [facility] [address] [facility] [id number] [place] [address]- 7292 Dec, [facility] [place] [facility] [address] [facility] [id number] [place] [address]- 4826 Dec, [facility] [place] [facility] [address] [facility] [id number] [place] [address]- 0099 Dec, [facility] [place] [facility] [address] [facility] [id number] [place] [address]- 3909 Nov, [facility] [place] [facility] [address] [facility] [id number], [place] [address]- 7113 Nov, [facility] [place] [facility] [address] [facility] [id number], [place] [address]- 9974 Nov, [facility] [place] [facility] [address] [facility] [id number], [place] [address]- 5643 Nov, [facility] [place] [facility] [address] [facility] [id number], [place] [address]- 8195 Nov, [facility] [place] [facility] [address] [id number] [place] [address]- 8752 Nov, [facility] [place] [facility] [address] [id number] [place] [address]- 7654 Nov, [facility] [place] [facility] [address] [id number] [place] [address]- 0655 Nov, [facility] [place] [facility] [address] [id number] [place] [address]- 5248 Nov, [facility] [place] [facility] [address] [id number] [place] [address]- 4433 Nov, [facility] [place] [facility] [address] [id number] [place] [address]- 6786 Nov, [facility] [address] [id number] [place] [address]- 6132 Nov, [facility] [address] [id number] [place] [address]- 7827 Oct, [facility] [place] [facility] [address] [id number] [place] [address]- 1513 Oct, [facility] [place] [facility] [address] [id number] [place] [address]- 4330 Oct, [facility] [place] [facility] [address] [id number] [place] [address]- 9917 Oct, [facility] [place] [facility] [address] [id number] [place] [address]- 3786 Oct, [facility] [place] [facility] [address] [id number] [place] [address]- 1943 Oct, [facility] [place] [facility] [address] [id number] [place] [address]- 1346 Oct, [facility] [place] [facility] [address] [id number] [place] [address]- 4591 Oct, [facility] [place] [facility] [address] [id number] [place] [address]- 3874 17 Oct, 2014 [facility] [place] [facility] [address] [id number] [place] [address]- 4318 17 Oct, 2014 [facility] [place] [facility] [address] [id number] [place] 6824 16 Oct, 2014 [facility] [place] [facility] [address] [id number] [place] [address]- 7648 16 Oct, 2014 [facility] [place] [facility] [address] [id number] [place] [address]- 1481 15 Oct, 2014 [facility] [place] [facility] [address] [id number] [place] [address]- 5717 15 Oct, 2014 [facility] [place] [facility] [address] [id number] [place] [address]- 4332 Oct, [facility] [place] [facility] [address] [id number] [place] [address]- 0567 Sep, [facility] [place] [facility] [address] [id number] [place] [address]- 4736 Sep, [facility] [place] [facility] [address] [id number] [place] [address]- 0512 Sep, [facility] [place] [facility] [address] [id number] [place] [address]- 8731 Sep, [facility] [place] [facility] [address] [id number] [place] [address]- 2798 Aug, [facility] [place] [facility] [address] [id number], [place] [address]- 6532 Aug, [facility] [place] [facility] [address] [id number] [place] [address]- 0266 Aug, [facility] [place] [facility] [address] [id number] [place] [address]- 3652 Aug, [facility] [place] [facility] [address] [id number] [place] [address]- 6862 Aug, [facility] [place] [facility] [address] [id number] [place] [address]- 2553 07 Aug, 2014 [facility] [place] [facility] [address] [id number] [place] [address]- 5841 29 Jul, 2014 [facility] [place] [facility] [address] [id number] [place] [address]- 0436 29 Jul, 2014 [facility] [place] [facility] [address] [id number] [place] [address]- 9226 15 Jul, 2014 [facility] [place] [facility] [address] [id number] [place] [address]- 9673 15 Jul, 2014 [facility] [place] [facility] [address] [id number] [place] [address]- 0065 08 Jul, 2014 [facility] [place] [facility] [address] [id number] [place] [address]- 6882 Jul, [facility] [place] [facility] [address] [id number] [place] [address]- 3737 Jun, [facility] [place] [facility] [address] [id number] [place] [address]- 3253 Jun, [facility] [place] [facility] [address] [id number] [place] [address]- 0191 Jun, [facility] [place] [facility] [address] [id number] [place] [address]- 0825 Jun, [facility] [place] [facility] [address] [id number] [place] [address]- 0340 Jun, [facility] [place] [facility] [address] [id number] [place] [address]- 6255 Jun, [facility] [place] [facility] [address] [id number] [place] [address]- 7633 Jun, [facility] [place] [facility] [address] [id number] [place] [address]- 7423 May, [facility] [place] [facility] [address] [id number] [place] [address]- 9178 May, [facility] [place] [facility] [address] [id number] [place] [address]- 3371 May, [facility] [place] [facility] [address] [id number] [place] [address]- 5010 May, [facility] [place] [facility] [address] [id number] [place] [address]- 8400 May, 2013 [facility] [place] [facility] [address] [id number] [place] [address]- 8053 May, 2013 [facility] [place] [facility] [address] [id number] [place] [address]- 2103 May, [facility] [place] [facility] [address] [id number] [place] [address]- 7001 May, [facility] [place] [facility] [address] [id number] [place] [address]- 5852 May, [facility] [place] [facility] [address] [id number] [place] [address]- 1558 May, [facility] [place] [facility] [address] [id number] [place] [address]- 0932 May, [facility] [place] [facility] [address] [id number] [place] [address]- 4696 May, [facility] [place] [facility] [address] [id number] [place] [address]- 0104 Apr, [facility] [place] [facility] [address] [id number] [place] [address]- 1717 Apr, [facility] [place] [facility] [address] [id number] [place] [address]- 6701 Apr, [facility] [place] [facility] [address] [id number] [place] [address]- 7470 Apr, [facility] [place] [facility] [address] [id number] [place] 4325 Apr, [facility] [place] [facility] [address] [id number] [place] [address]- 9833 Apr, [facility] [place] [facility] [address] [id number] [place] [address]- 6546 Apr, [facility] [place] [facility] [address] [id number] [place] [address]- 3843 Apr, [facility] [place] [facility] [address] [id number] [place] [address]- 6414 Apr, [facility] [place] [facility] [address] [id number] [place] [address]- 5692 Apr, [facility] [place] [facility] [address] [id number] [place] [address]- 9983 March, [facility] [place] [facility] [address] [id number] [place] [address]- 8930 March, [facility] [place] [facility] [address] [id number] [place] [address]- 6200 March, [facility] [place] [facility] [address] [id number] [place] [address]- 5645 March, [facility] [place] [facility] [address] [id number] [place] [address]- 6676 March, [facility] [place] [facility] [address] [id number] [place] [address]- 9891 March, [facility] [place] [facility] [address] [id number] [place] [address]- 4434 Feb, [facility] [place] [facility] [address] [id number] [place] [address]- 7995 Feb, [facility] [place] [facility] [address] [id number] [place] [address]- 7931 Feb, [facility] [place] [facility] [address] [id number] [place] [address]- 5365 Feb, [facility] [place] [facility] [address] [id number] [place] [address]- 1265 Feb, [facility] [place] [facility] [address] [id number] [place] [address]- 1470 Feb, [facility] [place] [facility] [address] [id number] [place] [address]- 8082 Feb, [facility] [place] [facility] [address] [id number] [place] [address]- 7917 Feb, [facility] [place] [facility] [address] [id number] [place] [address]- 4879 Feb, [facility] [place] [facility] [address] [id number] [place] [address]- 0017 Feb, [facility] [place] [facility] [address] [id number] [place] [address]- 7312 Jan, [facility] [place] [facility] [address] [id number] [place] [address]- 1991 Jan, [facility] [place] [facility] [address] [id number] [place] [address]- 5582 Jan, [facility] [place] [facility] [address] [id number] [place] [address]- 7046 Jan, [facility] [place] [facility] [address] [id number] [place] [address]- 1206 Jan, [facility] [place] [facility] [address] [id number] [place] [address]- 9423 Jan, [facility] [place] [facility] [address] [id number] [place] [address]- 4750 Jan, [facility] [place] [facility] [address] [id number] [place] [address]- 4063 Jan, [facility] [place] [facility] [address] [id number] [place]26 Dec, [facility] [place] [facility] [address] [id number] [place] [address]- 9858 Dec, [facility] [place] [facility] [address] [id number] [place] [address]- 6774 Dec, [facility] [place] [facility] [address] [id number] [place] [address] Dec, [facility] [place] [facility] [address] [id number] [place] [address] Dec, [facility] [place] [facility] [address] [id number] [place] [address] Dec, [facility] [place] [facility] [address] [id number] [place] [address] Dec, [facility] [place] [facility] [address] [id number] [place] [address] Dec, [facility] [place] [facility] [address] [id number] [place] [address] Nov, [facility] [place] [facility] [address] [id number] [place] [address] Nov, [facility] [place] [facility] [address] [id number] [place] [address] Nov, [facility] [place] [facility] [address] [id number] [place] [address] Nov, [facility] [place] [facility] [address] [facility] [id number] [place] [address] Nov, [facility] [place] [facility] [address] [id number] [place] [address] Nov, [facility] [place] [facility] [address] [id number], [place] [address] Nov, [facility] [place] [facility] [address] [id number] [place] [address] Nov, [facility] [place] [facility] [address] [id number] [place] [address]- [address] Nov, [facility] [place] [facility] [address] [id number] [place] [address] Nov, [facility] [place] [facility] [address] [id number] [place] [address] Nov, [facility] [place] [facility] [address] [id number] [place] [address] Oct, [facility] [place] [facility] [address] [id number] [place] [address]- [address]896 Oct, [facility] [place] [facility] [address] [id number] [place] [address]- [address] Oct, [facility] [place] [facility] [address] [id number] [place] [address]- [address] Oct, [facility] [place] [facility] [address] [id number] [place] [address] Sep, [facility] [place] [facility] [address] [id number] [place] [address] Sep, [facility] [place] [facility] [address] [id number] [place] [address]- [address] Sep, [facility] [place] [facility] [address] [id number] [place] [address]- 79[address] Sep, [facility] [place] [facility] [address] [id number] [place] [address]- [address] Aug, [facility] [place] [facility] [address] [id number] [place] [address] Aug, [facility] [place] [facility] [address] [id number] [place] [address]- [address] Aug, [facility] [place] [facility] [address] [id number] [place] [address]- [address] Aug, [facility] [place] [facility] [address] [id number] [place] [address] Aug, [facility] [place] [facility] [address] [id number] [place] [address]- [address] Aug, [facility] [place] [facility] [address] [id number] [place] [address] 04 Aug, 2013 [facility] [place] [facility] [address] [id number] [place] [address] Aug, [facility] [place] [facility] [address] [id number] [place] [address] 28 Jul, 2012 [facility] [place] [facility] [address] [id number] [place] [address] 27 Jul, 2012 [facility] [place] [facility] [address] [id number] [place] [address]- [address] 26 Jul, 2012 [facility] [place] [facility] [address] [id number] [place] [address]- [address] 24 Jul, 2012 [facility] [place] [facility] [address] [id number] [place] [address]- [address] 24 Jul, 2012 [facility] [place] [facility] [address] [id number] [place] [address]- [address] 23 Jul, 2012 [facility] [place] [facility] [address] [id number], [place] [address] 19 Jul, 2012 [facility] [place] [facility] [address] [id number] [place] [address] 18 Jul, 2012 [facility] [place] [facility] [address] [id number] [place] [address]- [address] 17 Jul, 2012 [facility] [place] [facility] [address] [id number], [place] [address]- [address]66 16 Sep, 2012 [facility] [place] [facility] [address] [id number], [place] [address]- [address] 13 Jul, 2012 [facility] [place] [facility] [address] [id number] [place] [address]- [address]45 13 Jul, 2012 [facility] [place] [facility] [address] [id number], [place] [address] 12 Jul, 2012 [facility] [place] [facility] [address] [id number], [place] [address]- [address] 11 Jul, 2012 [facility] [place] [facility] [address] [id number] [place] [address]- [address] Jul, [facility] [address] [id number] [place] [address]- [address] Jun, [facility] [place] [facility] [address] [id number] [place] [address]- 39[address] Jun, [facility] [address] [id number] [place] [address]- 59[address] Jun, [facility] [place] [facility] [address] [id number] [place] [address] May, [facility] [address] [id number] [place] [address]- 1320 May, [facility] [place] [facility] [address] [id number] [place] [address] May, [facility] [address] [id number] [place] [address]- [address] May, [facility] [place] [facility] [address] [id number] [place] [address]13 Apr, [facility] [place] [facility] [address] [id number] [place] [address]- 7026 Apr, [facility] [place] [facility] [address] [id number] [place] [address]- [address] Apr, [facility] [place] [facility] [address] [id number] [place] [address] Apr, [facility] [place] [facility] [address] [id number] [place] [address] 4[address] March, [facility] [place] [facility] [address] [id number] [place] [address] March, [facility] [place] [facility] [address] [id number] [place] [address] 3426 March, [facility] [place] [facility] [address] [id number] [place] [address] 7038 Feb, [facility] [place] [facility] [address] [id number] [place] [address] 1267 Feb, [facility] [place] [facility] [address] [id number] [place] [address] 4[address] Jan, [facility] [place] [facility] [address] [id number] [place] [address] Jan, [facility] [place] [facility] [address] [id number] [place] [address] 6014 Jan, [facility] [place] [facility] [address] [id number] [place] [address] 3167 05 Jan, 2013 [facility] [place] [facility] [address] [id number] [place] [address] Jan, [facility] [address] [id number] [place] [address]- 6669 Dec, [facility] [place] [facility] [address] [id number] [place] [address] 5851 Dec, [facility] [place] [facility] [address] [id number] [place] [address] 2580 Dec, [facility] [place] [facility] [address] [facility] [id number] [place] [address]- 0365 Dec, [facility] [place] [facility] [address] [id number] [place] [address] 1547 Dec, [facility] [place] [facility] [address] [id number], [place] [address] Dec, [facility] [place] [facility] [address] [id number] [place] [address] 1047 Dec, [facility] [place] [facility] [address] [id number] [place] [address] 9125 Dec, [facility] [place] [facility] [address] [id number] [place] [address] 9819 Nov, [facility] [place] [facility] [address] [id number] [place] [address] 0603 Nov, [facility] [address] [id number] [place] [address]- 9415 Nov, [facility] [place] [facility] [address] [id number] [place] [address]- 1506 Nov, [facility] [address] [id number] [place] [address]- 7256 Nov, [facility] [place] [facility] [address] [id number] [place] [address]- 2086 Nov, [facility] [address] [id number] [place] [address]- 1995 Nov, [facility] [address] [id number] [place] [address] 3432 Oct, [facility] [address] [id number] [place] [address] 4170 Oct, [facility] [address] [id number] [place] [address]- 6180 Oct, [facility] [place] [facility] [address] [id number] [place] [address]- 0238 Oct, [facility] [address] [id number] [place] [address]- 8876 Oct, [facility] [place] [facility] [address] [id number] [place] [address]- 9546 Oct, [facility] [place] [facility] [address] [id number] [place] [address]- 2308 Oct, [facility] [place] [facility] [address] [id number] [place] [address]- 8352 Oct, [facility] [place] [facility] [address] [id number] [place] [address]- 4460 Sep, [facility] [place] [facility] [address] [id number] [place] [address]- 4758 Sep, [facility] [place] [facility] [address] [id number] [place] [address]- 8346 Sep, [facility] [place] [facility] [address] [id number] [place] [address]- 1911 Sep, [facility] [place] [facility] [address] [id number] [place] [address]- 4670 Sep, [facility] [place] [facility] [address] [id number] [place] [address]- 2611 Sep, [facility] [place] [facility] [address] [id number] [place] [address]- 7943 Sep, [facility] [place] [facility] [address] [id number] [place] [address]- 2456 Sep, [facility] [place] [facility] [address] [id number] [place] [address]- 1115 Sep, [facility] [place] [facility] [address] [id number] [place] [address]- 8210 Sep, [facility] [place] [facility] [address] [id number] [place] [address]- 6042 Sep, [facility] [place] [facility] [address] [id number] [place] [address]- 1672 Sep, [facility] [place] [facility] [address] [id number] [place] [address]- 0833 Sep, [facility] [place] [facility] [address] [id number] [place] [address]- 8184 Sep, [facility] [place] [facility] [address] [id number] [place] [address]- 0552 Sep, [facility] [place] [facility] [address] [id number] [place] [address]- 6238 Sep, [facility] [place] [facility] [address] [id number] [place] [address]- 2523 Sep, [facility] [place] [facility] [address] [id number] [place] [address]- 2546 Sep, [facility] [place] [facility] [address] [id number] [place] [address] Sep, [facility] [place] [facility] [address] [id number] [place] [address]- 5561 Sep, [facility] [place] [facility] [address] [id number] [place] [address]- 1246 Aug, [facility] [place] [facility] [address] [id number] [place] [address] Aug, [facility] [place] [facility] [address] [id number] [place] [address]- 7751 29 Aug, 2012 [facility] [place] [facility] [address] [id number] [place] [address]- 4838 Aug, [facility] [place] [facility] [address] [id number] [place] [address]- 5300 Aug, [facility] [place] [facility] [address] [id number] [place] [address] 4618 Aug, [facility] [place] [facility] [address] [id number] [place] [address]- 1582 18 Aug, 2012 [facility] [place] [facility] [address] [id number] [place] [address]- 0827 17 Aug, 2012 [facility] [place] [facility] [address] [id number], [place] [address] 4[address] 16 Aug, 2012 [facility] [place] [facility] [address] [id number], [place] [address] 9582 16 Aug, 2012 [facility] [place] [facility] [address] [id number] [place] [address]- 3526 15 Aug, 2012 [facility] [place] [facility] [address] [id number], [place] [address] 8[address] 09 Aug, 2012 [facility] [place] [facility] [address] [id number] [place] [address]- 0812 05 Aug, 2012 [facility] [place] [facility] [address] [id number] [place] [address]- 2546 Aug, [facility] [address] [id number] [place] [address]- 5831 Aug, [facility] [place] [facility] [address] [id number] [place] [address]- 2546 14 Jul, 2012 [facility] [address] [id number] [place] [address]- 3116 Jul, [facility] [place] [facility] [address] [id number] [place] [address]- 1300 Jun, [facility] [address] [id number] [place] [address]- 0071 Jun, [facility] [place] [facility] [address] [id number] [place] [address]- 3802 May, [facility] [place] [facility] [address] [id number] [place] [address]- 3009 May, [facility] [address] [id number] [place] [address]- 2787 May, [facility] [place] [facility] [address] [id number] [place] [address]- 2292 May, [facility] [address] [id number] [place] [address]- 0153 May, [facility] [place] [facility] [address] [id number] [place] [address]- 9309 May, [facility] [place] [facility] [address] [id number] [place] [address]- 7015 Apr, [facility] [place] [facility] [address] [id number] [place] [address]- 5703 Apr, [facility] [place] [facility] [address] [id number] [place] [address]- 3126 March, [facility] [place] [facility] [address] [id number] [place] [address] March, [facility] [address] [id number] [place] [address]- 1744 March, [facility] [place] [facility] [address] [id number] [place] [address]- 9831 March, [facility] [place] [facility] [address] [id number] [place] [address]- 6682 March, [facility] [place] [facility] [address] [id number] [place] [address]- 3473 March, [facility] [address] [id number] [place] [address]- 0919 Feb, [facility] [place] [facility] [address] [id number] [place] [address]- 9642 Feb, [facility] [place] [facility] [address] [id number] [place] [address]- 6279 Feb, [facility] [place] [facility] [address] [id number] [place] [address]- 6096 Feb, [facility] [place] [facility] [address] [id number] [place] [address]- 5540 Feb, [facility] [place] [facility] [address] [id number] [place] [address]- 2011 Feb, [facility] [place] [facility] [address] [id number] [place] [address]- 1982 Feb, [facility] [place] [facility] [address] [id number], [place] [address] 7630 Feb, [facility] [place] [facility] [address] [id number] [place] [address]- 2380 Feb, [facility] [place] [facility] [address] [id number] [place] [address]- 7524 Jan, [facility] [place] [facility] [address] [id number] [place] [address]- 1519 Jan, [facility] [place] [facility] [address] [id number], [place] [address]- 4614 26 Jan, 2012 [facility] [address] [id number] [place] [address]- 4688 22 Jan, 2012 [facility] [place] [facility] [address] [id number] [place] [address]- 1296 21 Jan, 2012 [facility] [place] [facility] [address] [facility] [id number] [place] [address]- 3466 20 Jan, 2012 [facility] [place] [facility] [address] [id number] [place] [address]- 9417 14 Jan, 2012 [facility] [place] [facility] [address] [id number] [place] [address]- 5905 09 Jan, 2012 [facility] [place] [facility] [address] [facility] [id number] [place] [address]- 6832 09 Jan, 2012 [facility] [address] [place] [id number] [address]- 5133 08 Jan, 2012 [facility] [place] [facility] [address] [facility] [id number] [place] [address]- 0624 07 Jan, 2012 [facility] [place] [facility] [address] [facility] [id number] [place] [address]- 1142 06 Jan, 2012 [facility] [place] [facility] [address] [facility] [id number] [place] [address]- 4146 Jan, [facility] [place] [facility] [address] [id number] [place] [address]- 9469 Jan, [facility] [place] [facility] [address] [facility] [id number] [place] [address]- 5312 Dec, [facility] [place] [facility] [address] [id number] [place] [address]- 5744 Dec, [facility] [place] [facility] [address] [facility] [id number] [place] [address]- 4576 Dec, [facility] [place] [facility] [address] [facility] [id number] [place] [address]- 2842 Dec, [facility] [place] [facility] [address] [id number] [place] [address]- 4199 16 Dec, 2011 [facility] [place] [facility] [address] [id number] [place] [address]- 0916 08 Dec, 2011 [facility] [place] [facility] [address] [id number] [place] [address] 2546 08 Dec, 2011 [facility] [place] [facility] [address] [id number] [place] [address] 2546 Dec, [facility] [place] [facility] [address] [id number] [place] [address] 2549 Dec, [facility] [place] [facility] [address] [id number] [place] [address]- 8709 Nov, [facility] [place] [facility] [address] [id number] [place] [address]- 2657 Nov, [facility] [place] [facility] [address] [id number] [place] [address]- 6707 Nov, [facility] [place] [facility] [address] [id number] [place] [address]- 6402 Nov, [facility] [place] [facility] [address] [id number] [place] [address]- 1755 Oct, [facility] [place] [facility] [address] [id number] [place] [address] 2546 Oct, [facility] [place] [facility] [address] [id number] [place] [address] 2546 Oct, [facility] [place] [facility] [address] [id number] [place] [address] 2546 23 Oct, 2011 [facility] [place] [facility] [address] [id number] [place] [address] 2546 13 Oct, 2011 [facility] [place] [facility] [address] [id number] [place] [address]- 2546 12 Oct, 2011 [facility] [place] [facility] [address] [id number] [place] [address]- 5393 Oct, [facility] [place] [facility] [address] [id number] [place] [address]- 3203 Sep, [facility] [place] [facility] [address] [id number] [place] [address]- 9440 Sep, [facility] [place] [facility] [address] [id number] [place] [address]- 7892 Sep, [facility] [place] [facility] [address] [id number] [place] [address]- 6935 Sep, [facility] [place] [facility] [address] [id number] [place] [address], [place] [address]- 8545 Sep, [facility] [place] [facility] [address] [id number] [place] [address]- 6449 Sep, [facility] [place] [facility] [address] [id number] [place] [address]- 2404 Sep, [facility] [place] [facility] [address] [id number] [place] [address]- 0942 Sep, [facility] [place] [facility] [address] [id number] [place] [address]- 4819 Sep, [facility] [place] [facility] [address] [id number] [place] [address]- 5907 Aug, [facility] [place] [facility] [address] [id number] [place] [address]- 6857 Aug, [facility] [place] [facility] [address] [id number] [place] [address]- 9041 Aug, [facility] [place] [facility] [address] [id number] [place] [address]- 3017 May, [facility] [place] [facility] [address] [id number] [place] [address]- 7440 Nov, [facility] [place] [facility] [address] [id number] [place] [address]- 0464 Oct, [facility] [place] [facility] [address] [id number] [place] [address]- 8676 30 Oct, 2010 [facility] [place] [facility] [address] [id number] [place] [address]- 6136 30 Oct, 2010 [facility] [place] [facility] [address] [id number] [place] [address]- 2546 Oct, [facility] [place] [facility] [address] [id number] [place] [address] 2546 Oct, [facility] [place] [facility] [address] [id number] [place] [address]- 2546 Sep, [facility] [place] [facility] [address] [id number] [place] [address]- 6286 Sep, [facility] [address] [id number] [place] [address]- 3547 14 Jul, 2010 [facility] [place] [facility] [address] [id number] [place] [address]- 0296 Oct, [facility] [address] [id number] [place] [address]- 0265 Oct, [facility] [place] [facility] [address] [id number] [place] [address] 2546 Oct, [facility] [place] [facility] [address] [facility] [id number] [place] [address]- 8566 Oct, [facility] [place] [facility] [address] [id number] [place] [address] 2546 Sep, [facility] [place] [facility] [address] [id number] [place] [address] 2546 Sep, [facility] [place] [facility] [address] [id number] [place] [address]- 2546 Sep, [facility] [place] [facility] [address] [id number] [place] [address]- 2546 04 Sep, 2009 [facility] [place] [facility] [address] [id number], [place] [address]- 8206 Sep, [facility] [address] [facility] [id number] [place] [address]- 9074 Jul, [facility] [address] [facility] [id number], [place] [address]- 2177 Apr, [facility] [address] [facility] [id number][place] [address] Dec, IMMUNIZATIONS No Known Immunizations SOCIAL HISTORY Never Assessed REASON FOR VISIT f/u (last seen 03/2016) Consult Dr. Manjarrez;Beto RT(R) PLAN OF CARE Activity Details Follow Up 3 Months Reason: VITAL SIGNS MEDICATIONS Medication Instructions Dosage Frequency Start Date End Date Duration Status levothyroxine 50 mcg 1 tablet by Oral route 1 time per day NEW DOSE Dec, Unknown Neurontin 300 mg 2 capsule by Oral route 3 times per day Dec, Unknown Diflucan 100 mg 1 tablet by Oral route 1 time per day for 5 days Jan Unknown Symbicort 80-4.5 mcg/actuation inhale 2 puffs by inhalation route 2 times per day in the morning and evening March, Unknown Cards Off-Network [employer] SmartView w/Device as directed Dec, Unknown Atorvastatin Calcium 40 MG Orally Once a day 1 tablet 24h Unknown Metformin HCl 500 MG Orally Twice a day 1 tablet with meals 12h Unknown Paxil 10 mg 1 tablet by Oral route 1 time per day fluoxetine is stopped Dec, Unknown Amlodipine Besylate 5 MG Orally Once a day 1 tablet 24h Unknown HydrOXYzine HCl 10 MG Unknown BuPROPion HCl 75 MG Orally Once a day 1 tablet 24h Dec, 30 day( s) Unknown Meloxicam 15 MG Orally Once a day 1 tablet 24h Unknown Lipitor 40 mg 1 tablet by Oral route 1 time per day Dec, Unknown Combivent Respimat 20-100 mcg/actuation inhale 1 puff ; may take additional puffs as needed 4 times per day not to exceed 6 puffs in 24hrs Apr, Unknown Loratadine 10 mg take 1 tablet by Oral route 1 time per day take at hs Nov, Unknown Nitroglycerin 0.[address] 1 tablet by Buccal route 1 time per day until relief is obtained PRN March, Unknown Clopidogrel Bisulfate 75 MG Orally Once a day 1 tablet 24h Unknown Plavix 75 mg take 1 tablet (75 mg) by oral route once daily Dec, Unknown NovoLog Flexpen 100 unit/mL 10 units by Subcutaneous route 4 times per day Aug, Unknown Famotidine 20 mg take 1 tablet (20 mg) by oral route 2 times per day Dec, Unknown Gabapentin 300 MG Orally Once a day 1 capsule before bedtime 24h Unknown Test strips as directed Dec, Unknown Metoprolol Tartrate 25 mg 0.5 Tablet by Oral route 2 daily Dec, Unknown Oxybutynin Chloride 15 mg take 1 tablet (15 mg) by oral route once daily Jan, Unknown ProAir HFA 90 mcg/actuation inhale 2 puffs by Inhalation route every 4 hours as needed PRN shortness of breath/cough March, Unknown Hydrocodone-Acetaminophen 5-325 mg 1 Tablet by Oral route every 8-12 hours PRN MUST LAST 30 DAYS Jan, Unknown metformin 500 mg 1 tablet by Oral route 2 times per day Oct, Unknown Lisinopril 5 MG Orally Once a day 1 tablet 24h Unknown One Touch Delica Lancets - as directed Dec, Unknown RESULTS No Results PROCEDURES Procedure Date Ordered Result Body Site DEBRIDE NAIL, 6 OR MORE February 05, 2018 INSTRUCTIONS MEDICATIONS ADMINISTERED No Known Medications MEDICAL (GENERAL) HISTORY Type Description Date Medical History hypertension Medical History hyperlipidemia Medical History diabetes type II Medical History COPD Medical History asthma Surgical History hysterectomy Surgical History arthritis surgery Hospitalization History surgeries
--- OUTSIDE RECORDS SUMMARY | 2018-11-26 16:13 | XMS REPORT ---
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 Name Role Phone KING FISHMAN Unavailable PROBLEMS Type Condition ICD9-CM Code GIT45-VY Code Onset Dates Condition Status SNOMED Code Problem Essential hypertension I10 Active 25029330 Problem Lumbago with sciatica, left side M54.42 Active 976713091 Problem Acquired hypothyroidism E03.9 Active 618310858 Problem Prediabetes R73.03 Active 361244881 Problem Reactive depression F32.9 Active 21703900 Problem Mixed hyperlipidemia E78.2 Active 816261334 Problem Pain in right ankle and joints of right foot M25.571 Active 79136332114004 Problem Chronic obstructive pulmonary disease, unspecified COPD type J44.9 Active 61856341 Problem Gastroesophageal reflux disease, esophagitis presence not specified K21.9 Active 236540605 Problem Lumbago with sciatica, right side M54.41 Active 69268929437733525 Problem Cigarette nicotine dependence without complication F17.210 Active 81972283 Problem Other chronic pain G89.29 Active 30951189 ALLERGIES No Information ENCOUNTERS Encounter Location Date Diagnosis [facility] [id number] [address] Jul, [facility] [address], [place] [address] Jun, [facility] [id number] [place] [address]- 5776 May, [facility] [id number] [place] [address] 59766- 0611 May, [facility] [address] [address] May, [place] [address], [place] [address] May, Acute nasopharyngitis J00 [facility] [id number] [address] 56[address] May, [facility] [address] [address] 1152 May, [facility] [id number] [place] [address] 20799- 8932 Apr, [facility] [id number] [place] [address]45- 0764 Apr, [facility] [id number] [place] [address] 85889- 2586 Apr, [facility] [id number] [place] [address] 62715- 4590 Apr, [facility] [id number] [place] [address] 35652- 4616 Apr, Pain in right ankle and joints of right foot M25.571 [facility] [id number] [place] [address] 18551- 7042 Apr, [facility] [address] [address] 27[address] Apr, Bronchitis J40 ; Pain in right ankle and joints of right foot M25.571 ; Other chronic pain G89.29 ; Prediabetes R73.03 ; Chronic obstructive pulmonary disease, unspecified COPD type J44.9 and Cigarette nicotine dependence without complication F17.210 [facility] [address] [address] 13 Apr, 2018 Seasonal allergic rhinitis, unspecified trigger J30.2 [facility] [address], [place] [address] 08 Apr, 2018 Onychomycosis B35.1 ; Onychocryptosis L60.0 and DM neuro manif type II E11.49 [place] [id number] [place] [address] 82471- 7081 Apr, Reactive depression F32.9 ; Thoracic myofascial strain, initial encounter S29.019A and Leg cramps R25.2 [place] [id number] [place] [address] 89464- 3007 March, [place] [address] [address]- 3843 March, Type 2 diabetes mellitus with hyperglycemia E11.65 [place] [address] 25075- 3923 March, Reactive depression F32.9 [place] [address] 41238- 4643 March, Pain in thoracic spine M54.6 and Other chronic pain G89.29 [place] [address] 11312- 1195 Feb, [place] [address] 91752- 9284 Jan, Reactive depression F32.9 ; Essential hypertension I10 ; Gastroesophageal reflux disease, esophagitis presence not specified K21.9 ; Lumbago with sciatica, left side M54.42 and Lumbago with sciatica, right side M54.41 [place] [address] 17878- 8620 Jan, Reactive depression F32.9 and Pharyngoesophageal dysphagia R13.14 [place] [id number] [place] [address] 08104- 9242 Jan, [address] [address]- 4476 Jan, Encounter for immunization Z23 [place] [id number] [place] [address] 57744- 0118 Jan, Onychomycosis B35.1 and DM neuro manif type II E11.49 [facility] [id number] [place] [address] 83549- 7229 Jan, [facility] [address] 19895- 5857 Jan, Prediabetes R73.03 [facility] [address] 70801- 4171 Dec, [facility] [address] 81652- 1028 Dec, Essential hypertension I10 ; Mixed hyperlipidemia E78.2 ; Acquired hypothyroidism E03.9 ; Reactive depression F32.9 and Prediabetes R73.03 [place] [id number] [place] [address] 48030- 8570 Dec, [place] [address] 06160- 7218 Dec, [place] [address] 86026- 6170 Dec, DM neuro manif type II E11.49 [facility] [id number] [place] [address] 32780 -1919 Dec, Bruise T14.8XXA ; Type 2 diabetes mellitus with hyperglycemia E11.65 and assisted current use of insulin Z79.4 [place] [id number] [place] [address] 60489- 4140 Oct, [facility] [address] 40703- 4723 March, Onychomycosis B35.1 and DM neuro manif type II E11.49 [facility] [id number] [place] [address] 88805- 5708 Jun, [facility] [id number] [place] [address] 00583- 6690 Jun, [facility] [id number] [place] [address]- 8835 Jun, COPD with acute exacerbation 491.21 [facility] [address] [id number] [place] [address]- 4519 15 Apr, 2015 [facility] [address] [id number] [place] [address]- 5334 14 Feb, 2015 [facility] [address] [id number] [place] [address]- 8444 Feb, [facility] [address] [id number] [place] [address]- 8732 Jan, [facility] [address] [id number] [place] [address]- 1357 Jan, [facility] [address] [id number] [place] [address]- 5389 Jan, [facility] [address] [id number] [place] [address]- 8991 Jan, [facility] [address] [id number] [place] [address]- 5876 Jan, [facility] [address] [id number] [place] [address]- 5628 Jan, [facility] [address] [id number] [place] [address]- 0826 Jan, [facility] [address] [id number] [address]- 8668 Jan, [facility] [address] [id number] [place] [address]- 3139 Jan, [facility] [place] [facility] [address] [id number] [place] [address]- 8200 Jan, [facility] [address] [id number] [place] [address]- 2860 Jan, [facility] [address] [id number] [address]- 2775 18 Jan, 2015 [facility] [place] [facility] [address] [id number] [place] [address]- 1475 18 Jan, 2015 [facility] [place] [facility] [address] [id number] [place] [address]- 2515 16 Jan, 2015 [facility] [place] [facility] [address] [id number] [place] [address]- 3286 16 Jan, 2015 [facility] [place] [facility] [address] [id number] [place] [address]- 2448 16 Jan, 2015 [facility] [place] [facility] [address] [id number] [place] [address]- 6124 16 Jan, 2015 [facility] [place] [facility] [address] [id number] [place] [address]- 8563 15 Jan, 2015 [facility] [place] [facility] [address] [id number] [place] [address]- 2037 13 Jan, 2015 [facility] [place] [facility] [address] [id number] [place] [address]- 5111 13 Jan, 2015 [facility] [place] [facility] [address] [id number] [place] [address]- 5674 13 Jan, 2015 [facility] [place] [facility] [address] [id number] [place] [address]- 0346 13 Jan, 2015 [facility] [place] [facility] [address] [id number] [place] [address]- 4504 Jan, [facility] [place] [facility] [address] [id number] [place] [address]- 8404 04 Jan, 2015 [facility] [place] [facility] [address] [id number] [place] [address]- 5244 Jan, [facility] [place] [facility] [address] [id number] [place] [address]- 2807 24 Dec, 2014 [facility] [place] [facility] [address] [id number] [place] [address]- 6653 24 Dec, 2014 [facility] [place] [facility] [address] [id number] [place] [address]- 4299 Dec, 2014 [facility] [place] [facility] [address] [id number] [place] [address]- 0303 Dec, 2014 [facility] [place] [facility] [address] [id number] [place] [address]- 2546 Dec, 2014 [facility] [place] [facility] [address] [id number] [place] [address]- 8107 Dec, 2014 [facility] [place] [facility] [address] [id number] [place] [address]- 9385 Dec, 2014 [facility] [place] [facility] [address] [id number] [place] [address]- 1074 Dec, 2014 [facility] [place] [facility] [address] [facility] [id number] [place] [address]- 2799 Dec, [facility] [place] [facility] [address] [id number] [place] [address]- 3205 Dec, 2014 [facility] [place] [facility] [address] [id number] [place] [address]- 4185 Dec, [facility] [place] [facility] [address] [facility] [id number] [place] [address]- 0693 Dec, [facility] [place] [facility] [address] [id number] [place] [address]- 3054 Nov, [facility] [place] [facility] [address] [id number], [place] [address]- 7539 Nov, [facility] [place] [facility] [address] [id number] [place] [address]- 3036 Nov, [facility] [place] [facility] [address] [id number] [place] [address]- 0280 Nov, [facility] [place] [facility] [address] [id number] [place] [address]- 6952 Nov, [facility] [place] [facility] [address] [id number] [place] [address]- 9075 Nov, [facility] [address] [id number] [place] [address]- 9683 Nov, [facility] [place] [facility] [address] [id number] [place] [address]- 1455 Nov, [facility] [place] [facility] [address] [id number] [place] [address]- 5551 Nov, [facility] [place] [facility] [address] [id number] [place] [address]- 8695 Nov, [facility] [place] [facility] [address] [id number] [place] [address]- 6757 Nov, [facility] [place] [facility] [address] [id number] [place] [address]- 7585 Nov, [facility] [address] [id number] [place] [address]- 7665 Oct, [facility] [place] [facility] [address] [id number] [place] [address]- 9305 Oct, [facility] [place] [facility] [address] [id number] [place] [address]- 9407 Oct, [facility] [place] [facility] [address] [id number] [place] [address]- 8933 30 Oct, 2014 [facility] [place] [facility] [address] [id number] [place] [address]- 0800 29 Oct, 2014 [facility] [place] [facility] [address] [id number] [place] [address]- 3522 29 Oct, 2014 [facility] [place] [facility] [address] [id number] [place] [address]- 1202 Oct, [facility] [place] [facility] [address] [id number] [place] [address]- 6426 Oct, [facility] [place] [facility] [address] [id number] [place] [address]- 2386 17 Oct, 2014 [facility] [place] [facility] [address] [id number] [place] 8713 17 Oct, 2014 [facility] [place] [facility] [address] [id number] [place] 0816 16 Oct, 2014 [facility] [place] [facility] [address] [id number] [place]396 16 Oct, 2014 [facility] [place] [facility] [address] [id number] [place] [address]- 8395 15 Oct, 2014 [facility] [place] [facility] [address] [id number] [place] [address]- 5500 15 Oct, 2014 [facility] [place] [facility] [address] [id number] [place] [address]- 8502 Oct, [facility] [place] [facility] [address] [id number] [place] [address]- 6426 Sep, [facility] [place] [facility] [address] [id number] [place] [address]- 1520 Sep, [facility] [place] [facility] [address] [id number] [place] [address]- 0726 Sep, [facility] [place] [facility] [address] [id number] [place] [address]- 4815 Sep, [facility] [place] [facility] [address] [id number] [place] [address]- 9691 Aug, [facility] [place] [facility] [address] [id number] [place] [address]- 9645 Aug, [facility] [place] [facility] [address] [id number] [place] [address]- 6277 Aug, [facility] [place] [facility] [address] [id number] [place] 4396 Aug, [facility] [place] [facility] [address] [id number] [place] 2059 Aug, [facility] [place] [facility] [address] [id number] [place] [address]- 4911 Aug, [facility] [place] [facility] [address] [id number] [place] [address]- 0218 Jul, [facility] [place] [facility] [address] [id number] [place] [address]- 0876 Jul, [facility] [place] [facility] [address] [id number] [place] [address]- 0776 Jul, [facility] [place] [facility] [address] [id number] [place] [address]- 1208 Jul, [facility] [place] [facility] [address] [id number] [place] [address]- 5652 Jul, [facility] [place] [facility] [address] [id number] [place] [address]- 5387 Jul, [facility] [place] [facility] [address] [id number] [place] [address]- 4389 Jun, [facility] [place] [facility] [address] [id number] [place] [address]- 5954 Jun, [facility] [place] [facility] [address] [id number] [place] [address]- 3492 Jun, [facility] [place] [facility] [address] [id number] [place] [address]- 4939 Jun, [facility] [place] [facility] [address] [id number], [place] [address]- 3404 Jun, [facility] [place] [facility] [address] [id number], [place] [address]- 8633 Jun, [facility] [place] [facility] [address] [id number] [place] [address]- 2625 Jun, [facility] [place] [facility] [address] [id number], [place] [address]- 8366 May, [facility] [place] [facility] [address] [id number] [place] [address]- 8977 May, [facility] [place] [facility] [address] [id number] [place] [address]- 6186 May, 2013 [facility] [place] [facility] [address] [id number] [place] [address]- 4886 May, 2013 [facility] [place] [facility] [address] [id number] [place] [address]- 5086 May, 2013 [facility] [place] [facility] [address] [id number] [place] [address]- 7978 May, 2013 [facility] [place] [facility] [address] [id number] [place] [address]- 2466 May, 2013 [facility] [place] [facility] [address] [id number] [place] [address]- 1591 May, [facility] [place] [facility] [address] [id number] [place] [address]- 4368 May, [facility] [place] [facility] [address] [id number] [place] [address]- 0575 May, 2013 [facility] [place] [facility] [address] [id number] [place] [address]- 3359 May, [facility] [place] [facility] [address] [id number] [place] [address]- 4193 May, [facility] [place] [facility] [address] [id number] [place] [address]- 4858 Apr, [facility] [place] [facility] [address] [id number] [place] [address]- 9850 Apr, [facility] [place] [facility] [address] [id number] [place] [address]- 9611 Apr, [facility] [place] [facility] [address] [id number] [place] [address]- 0226 Apr, [facility] [place] [facility] [address] [id number] [place] [address]- 7197 Apr, [facility] [place] [facility] [address] [id number] [place] [address]- 6899 Apr, [facility] [place] [facility] [address] [id number] [place] [address]- 3425 Apr, [facility] [place] [facility] [address] [id number] [place] [address]- 1649 Apr, [facility] [place] [facility] [address] [id number] [place] [address]- 4906 Apr, [facility] [place] [facility] [address] [id number] [place] [address]- 0838 Apr, [facility] [place] [facility] [address] [id number] [place] [address]- 1935 March, [facility] [place] [facility] [address] [id number] [place] [address]- 1784 March, [facility] [place] [facility] [address] [id number] [place] [address]- 8281 March, [facility] [place] [facility] [address] [id number] [place] [address]- 5172 March, [facility] [place] [facility] [address] [id number] [place] [address]- 8060 March, [facility] [place] [facility] [address] [id number] [place] [address]- 0320 March, [facility] [place] [facility] [address] [id number] [place] [address]- 1110 Feb, [facility] [place] [facility] [address] [id number] [place] [address]- 8146 Feb, [facility] [place] [facility] [address] [id number] [place] [address]- 2955 Feb, [facility] [place] [facility] [address] [id number] [place] [address]- 7697 Feb, [facility] [place] [facility] [address] [id number] [place] [address]- 0750 Feb, [facility] [place] [facility] [address] [id number] [place] [address]- 6817 Feb, [facility] [place] [facility] [address] [id number] [place] [address]- 3415 Feb, [facility] [place] [facility] [address] [id number] [place] 4243 Feb, [facility] [place] [facility] [address] [id number] [place] [address]- 6593 Feb, [facility] [place] [facility] [address] [id number] [place] [address]- 3857 Feb, [facility] [place] [facility] [address] [id number] [place] [address]- 9002 Jan, [facility] [place] [facility] [address] [id number] [place] [address]- 9305 Jan, [facility] [place] [facility] [address] [facility] [id number] [place] [address]- 8985 Jan, [facility] [place] [facility] [address] [id number] [place] [address]- 6468 Jan, [facility] [place] [facility] [address] [id number] [place] [address]- 8408 Jan, [facility] [place] [facility] [address] [id number] [place] [address]- 8656 Jan, [facility] [place] [facility] [address] [id number] [place] [address] Jan, [facility] [place] [facility] [address] [id number] [place] [address] Jan, [facility] [place] [facility] [address] [id number] [place] [address] Dec, [facility] [place] [facility] [address] [id number] [place] [address] Dec, [facility] [place] [facility] [address] [id number] [place] [address] Dec, [facility] [place] [facility] [address] [id number] [place] [address] Dec, [facility] [place] [facility] [address] [id number] [place] [address] Dec, [facility] [place] [facility] [address] [id number] [place] [address] Dec, [facility] [place] [facility] [address] [id number] [place] [address] Dec, [facility] [place] [facility] [address] [id number] [place] [address] Dec, [facility] [place] [facility] [address] [id number] [place] [address] Nov, [facility] [place] [facility] [address] [id number] [place] [address] Nov, [facility] [place] [facility] [address] [id number] [place] [address] Nov, [facility] [place] [facility] [address] [id number] [place] [address] Nov, [facility] [place] [facility] [address] [id number] [place] [address] Nov, [facility] [place] [facility] [address] [id number] [place] [address] Nov, [facility] [place] [facility] [address] [id number] [place] [address] Nov, [facility] [place] [facility] [address] [id number] [place] [address] Nov, [facility] [place] [facility] [address] [id number] [place] [address] Nov, [facility] [place] [facility] [address] [id number] [place] [address] 8710 Nov, [facility] [place] [facility] [address] [id number], [place] [address] Nov, [facility] [place] [facility] [address] [id number] [place] [address] Oct, [facility] [place] [facility] [address] [id number] [address] Oct, [facility] [place] [facility] [address] [id number] [place] [address] Oct, [facility] [place] [facility] [address] [id number] [place] [address]270 Oct, [facility] [place] [facility] [address] [id number] [place] [address]697 Sep, [facility] [place] [facility] [address] [id number] [place] [address] Sep, [facility] [place] [facility] [address] [id number] [place] [address] Sep, [facility] [place] [facility] [address] [id number] [place] [address] 137[address] Sep, [facility] [place] [facility] [address] [id number], [place] [address] Aug, [facility] [place] [facility] [address] [id number] [place] [address] Aug, [facility] [place] [facility] [address] [id number], [place] [address] Aug, [facility] [place] [facility] [address] [id number], [place] [address] Aug, [facility] [place] [facility] [address] [id number], [place] [address] Aug, [facility] [place] [facility] [address] [id number], [place] [address] Aug, [facility] [place] [facility] [address] [id number], [place] [address] Aug, [facility] [place] [facility] [address] [id number] [place] [address]- [address] 01 Aug, 2013 [facility] [address] [id number] [place] [address]- [address] 28 Sep, 2012 [facility] [place] [facility] [address] [id number] [place] [address] 27 Sep, 2012 [facility] [address] [id number] [place] [address] 254 26 Sep, 2012 [facility] [address] [id number] [place] [address]- [address] 24 Sep, 2012 [facility] [address] [id number] [place] [address]- 48[address] 24 Sep, 2012 [facility] [address] [id number] [place] [address]- 47[address] 23 Sep, 2012 [facility] [address] [id number] [place] [address]- [address] 19 Sep, 2012 [facility] [address] [id number] [place] [address]- [address]18 18 Sep, 2012 [facility] [address] [id number] [place] [address]649 17 Sep, 2012 [facility] [address] [id number] [place] [address]- [address] 16 Sep, 2012 [facility] [address] [id number] [place] [address] 2544 13 Sep, 2012 [facility] [address] [id number] [place] [address] 2542 13 Sep, 2012 [facility] [place] [facility] [address] [id number] [place] [address] 2543 12 Sep, 2012 [facility] [place] [facility] [address] [id number] [place] [address]- [address]45 11 Sep, 2012 [facility] [place] [facility] [address] [id number] [place] [address]- 97[address] Jul, [facility] [address] [id number] [place] [address]- 8577 Jun, [facility] [place] [facility] [address] [id number] [place] [address]- 7286 Jun, [facility] [place] [facility] [address] [id number] [place] [address]- 59[address] Jun, [facility] [place] [facility] [address] [id number] [place] [address] May, [facility] [place] [facility] [address] [id number] [place] [address]- [address]993 May, [facility] [place] [facility] [address] [id number] [place] [address] May, [facility] [place] [facility] [address] [id number] [place] [address] May, [facility] [place] [facility] [address] [id number] [place] [address] 8[address] Apr, [facility] [place] [facility] [address] [id number] [place] [address] Apr, [facility] [place] [facility] [address] [id number] [place] [address] 9928 Apr, [facility] [place] [facility] [address] [id number] [place] [address] 4259 Apr, [facility] [place] [facility] [address] [id number] [place] [address] 7[address] March, [facility] [place] [facility] [address] [id number] [place] [address] 9904 March, [facility] [place] [facility] [address] [id number] [place] [address] 8446 March, [facility] [place] [facility] [address] [id number] [place] [address] 2111 Feb, [facility] [place] [facility] [address] [id number] [place] [address] 6831 Feb, [facility] [address] [id number] [place] [address] 3411 Jan, [facility] [place] [facility] [address] [id number] [place] [address] 6397 Jan, [facility] [place] [facility] [address] [id number] [place] [address] 2326 Jan, [facility] [place] [facility] [address] [id number] [place] [address]- 2087 05 Jan, 2013 [facility] [place] [facility] [address] [id number] [place] [address]- 3585 Jan, [facility] [place] [facility] [address] [id number] [place] [address] 3521 Dec, [facility] [place] [facility] [address] [id number] [place] [address]- 2824 Dec, [facility] [place] [facility] [address] [id number] [place] [address]- 6089 Dec, [facility] [place] [facility] [address] [id number] [place] [address]- 4587 Dec, [facility] [address] [id number] [place] [address]- 0394 Dec, [facility] [place] [facility] [address] [id number] [place] [address] 2546 Dec, [facility] [place] [facility] [address] [id number] [place] [address] 2542 Dec, [facility] [place] [facility] [address] [id number] [place] [address]- 0641 Dec, [facility] [place] [facility] [address] [id number] [place] [address] 2546 Nov, [facility] [place] [facility] [address] [id number] [place] [address]- 3263 Nov, [facility] [address] [id number] [place] [address]- 0359 Nov, [facility] [place] [facility] [address] [id number] [place] [address]- 4523 Nov, [facility] [place] [facility] [address] [id number] [place] [address]- 2255 Nov, [facility] [place] [facility] [address] [id number] [place] [address]- 8668 Nov, [facility] [place] [facility] [address] [id number] [place] [address]- 5204 Nov, [facility] [place] [facility] [address] [id number] [place] [address]- 7423 Oct, [facility] [place] [facility] [address] [id number] [place] [address]- 1528 Oct, [facility] [place] [facility] [address] [id number] [place] [address]- 2833 Oct, [facility] [place] [facility] [address] [id number] [place] [address]- 8740 Oct, [facility] [place] [facility] [address] [id number] [place] [address]- 8833 Oct, [facility] [place] [facility] [address] [id number] [place] [address] 0210 Oct, [facility] [place] [facility] [address] [id number] [place] [address]- 4421 Oct, [facility] [place] [facility] [address] [id number] [place] [address]- 4877 Oct, [facility] [place] [facility] [address] [id number] [place] [address]- 8117 Sep, [facility] [place] [facility] [address] [id number] [place] [address]- 3488 Sep, [facility] [place] [facility] [address] [id number] [place] [address] 3650 Sep, [facility] [place] [facility] [address] [id number] [place] [address]- 4366 Sep, [facility] [place] [facility] [address] [id number] [place] [address]- 0968 Sep, [facility] [place] [facility] [address] [id number] [place] [address] 1850 Sep, [facility] [place] [facility] [address] [id number] [place] [address]- 8811 Sep, [facility] [place] [facility] [address] [id number] [place] [address]- 1036 Sep, [facility] [place] [facility] [address] [id number] [place] [address]- 5394 Sep, [facility] [place] [facility] [address] [id number] [place] [address]- 2720 Sep, [facility] [place] [facility] [address] [id number] [place] [address]- 8509 Sep, [facility] [place] [facility] [address] [id number] [place] [address]- 3012 Sep, [facility] [place] [facility] [address] [id number] [place] [address]- 7922 Sep, [facility] [place] [facility] [address] [id number] [place] [address]- 6208 Sep, [facility] [place] [facility] [address] [id number], [place] [address]- 1588 Sep, [facility] [place] [facility] [address] [id number] [place] [address]- 1579 Sep, [facility] [place] [facility] [address] [id number] [place] [address]- 1018 Sep, [facility] [place] [facility] [address] [id number], [place] [address]- 2571 Sep, [facility] [place] [facility] [address] [id number] [place] [address]- 7960 02 Sep, 2012 [facility] [place] [facility] [address] [id number] [place] [address]- 3979 Sep, [facility] [place] [facility] [address] [id number] [place] [address] 31 Aug, 2011 [facility] [place] [facility] [address] [id number] [place] [address]- 3998 31 Aug, 2012 [facility] [place] [facility] [address] [id number] [place] [address]- 8645 29 Aug, 2012 [facility] [place] [facility] [address] [id number] [place] [address]- 0394 Aug, [facility] [place] [facility] [address] [id number] [place] [address]- 3388 27 Aug, 2012 [facility] [place] [facility] [address] [id number] [place] [address]- 8983 Aug, [facility] [place] [facility] [address] [id number] [place] [address]- 8259 18 Aug, 2012 [facility] [place] [facility] [address] [id number] [place] [address]- 3732 17 Aug, 2012 [facility] [place] [facility] [address] [facility] [id number] [place] [address]- 4522 16 Aug, 2012 [facility] [place] [facility] [address] [id number] [place] [address]- 4602 16 Aug, 2012 [facility] [place] [facility] [address] [id number] [place] [address]- 8924 15 Aug, 2012 [facility] [place] [facility] [address] [id number] [place] [address] 09 Aug, 2012 [facility] [place] [facility] [address] [id number] [place] [address]- 3184 05 Aug, 2012 [facility] [place] [facility] [address] [id number] [place] [address] Aug, [facility] [place] [facility] [address] [id number] [place] [address]- 5645 Aug, [facility] [place] [facility] [address] [id number] [place] [address]- 0336 14 Jul, 2012 [facility] [place] [facility] [address] [id number] [place] [address]- 3316 Jul, [facility] [place] [facility] [address] [id number] [place] [address]- 2756 Jun, [facility] [place] [facility] [address] [id number] [place] [address]- 6666 Jun, [facility] [place] [facility] [address] [id number] [place] [address]- 4918 May, [facility] [place] [facility] [address] [id number] [place] [address]- 8116 May, [facility] [place] [facility] [address] [id number] [place] [address]- 6485 May, [facility] [place] [facility] [address] [id number] [place] [address]- 3523 May, [facility] [place] [facility] [address] [id number] [place] [address]- 3697 May, [facility] [place] [facility] [address] [id number], [place] [address]- 3606 May, [facility] [place] [facility] [address] [id number], [place] [address]- 4001 Apr, [facility] [place] [facility] [address] [id number] [place] [address]- 8244 Apr, [facility] [place] [facility] [address] [id number] [place] [address]- 5228 March, [facility] [place] [facility] [address] [id number] [place] [address]- 5956 March, [facility] [place] [facility] [address] [id number] [place] [address]- 6294 16 Mar, 2012 [facility] [address] [id number] [place] [address]- 0716 March, [facility] [address] [id number] [place] [address]- 0966 March, [facility] [address] [id number] [place] [address]- 4556 March, [facility] [address] [id number] [place] [address]- 2051 Feb, [facility] [address] [id number] [place] [address]- 4071 Feb, [facility] [address] [id number] [place] [address]- 0192 Feb, [facility] [address] [id number] [place] [address]- 3341 Feb, [facility] [address] [id number] [place] [address]- 1580 Feb, [facility] [address] [id number] [place] [address]- 9242 Feb, [facility] [address] [id number] [place] [address]- 8783 Feb, [facility] [address] [id number] [place] [address]- 7300 Feb, [facility] [address] [id number] [place] [address]- 0033 Feb, [facility] [place] [facility] [address] [id number] [place] [address]- 0106 Jan, [facility] [place] [facility] [address] [id number] [id number] [address] Jan, [facility] [place] [facility] [address] [id number] [place] [address] Jan, [facility] [place] [facility] [address] [id number] [place] [address]- 0622 22 Jan, 2012 [facility] [place] [facility] [address] [id number] [place] [address]- 6406 21 Jan, 2012 [facility] [place] [facility] [address] [id number] [place] [address]- 5136 20 Jan, 2012 [facility] [place] [facility] [address] [id number] [place] [address]- 7869 14 Jan, 2012 [facility] [address] [id number] [place] [address]- 6314 09 Jan, 2012 [facility] [place] [facility] [address] [id number] [place] [address]- 0540 09 Jan, 2012 [facility] [place] [facility] [address] [id number] [place] [address]- 6196 08 Jan, 2012 [facility] [place] [facility] [address] [id number] [place] [address]- 6935 07 Jan, 2012 [facility] [place] [facility] [address] [id number] [place] [address]- 3454 06 Jan, 2012 [facility] [place] [facility] [address] [id number] [place] [address]- 5150 02 Jan, 2012 [facility] [place] [facility] [address] [id number] [place] [address]- 1984 Jan, [facility] [place] [facility] [address] [id number] [place] [address]- 2165 28 Dec, 2011 [facility] [place] [facility] [address] [id number] [place] [address]- 7933 Dec, [facility] [place] [facility] [address] [id number] [place] [address]- 7706 Dec, [facility] [place] [facility] [address] [id number] [place] [address]- 1846 Dec, [facility] [place] [facility] [address] [id number] [place] [address]- 4587 16 Dec, 2011 [facility] [address] [id number] [place] [address]- 7186 08 Dec, 2011 [facility] [address] [id number] [place] [address] 2546 08 Dec, 2011 [facility] [address] [id number] [place] [address] 2546 07 Dec, 2011 [facility] [address] [id number] [place] [address] 2546 07 Dec, 2011 [facility] [address] [id number] [place] [address]- 3753 27 Nov, 2011 [facility] [address] [id number] [place] [address]- 1871 Nov, [facility] [address] [id number] [place] [address]- 9217 Nov, [facility] [address] [id number] [place] [address]- 2844 Nov, [facility] [address] [id number] [place] [address]- 1144 Oct, [facility] [address] [id number] [place] [address]- 4677 Oct, [facility] [address] [id number] [place] [address] 2546 Oct, [facility] [address] [id number] [place] [address] 254 23 Oct, 2011 [facility] [address] [id number] [place] [address] 2546 13 Oct, 2011 [facility] [address] [id number] [place] [address]- 2546 12 Oct, 2011 [facility] [address] [id number] [place] [address] 2542 Oct, [facility] [place] [facility] [address] [id number] [place] [address]- 3506 Sep, [facility] [place] [facility] [address] [id number] [place] [address]- 5033 Sep, [facility] [place] [facility] [address] [id number] [place] [address]- 7751 Sep, [facility] [place] [facility] [address] [id number] [place] [address]- 1843 Sep, [facility] [place] [facility] [address] [id number] [place] [address]- 9206 Sep, [facility] [place] [facility] [address] [id number] [place] [address]- 6666 Sep, [facility] [place] [facility] [address] [id number] [place] [address]- 9671 Sep, [facility] [place] [facility] [address] [id number] [place] [address]- 0431 Sep, [facility] [place] [facility] [address] [id number] [place] [address]- 5833 Sep, [facility] [place] [facility] [address] [id number] [place] [address]- 6253 Aug, [facility] [place] [facility] [address] [id number] [place] [address]- 1637 Aug, [facility] [place] [facility] [address] [id number], [place] [address]- 0948 Aug, [facility] [place] [facility] [address] [id number] [place] [address]- 3994 May, [facility] [place] [facility] [address] [id number] [place] [address]- 8561 Nov, [facility] [place] [facility] [address] [id number] [place] [address]- 0954 Oct, [facility] [place] [facility] [address] [id number], [place] [address]- 1946 Oct, [facility] [address] [id number] [place] [address]- 8816 30 Oct, 2010 [facility] [place] [facility] [address] [id number], [place] [address]- 8266 Oct, [facility] [place] [facility] [address] [facility] [id number] [place] [address]- 0666 Oct, [facility] [place] [facility] [address] [id number], [place] [address]- 9289 Sep, [facility] [address] [id number] [place] [address]- 6993 Sep, [facility] [address] [id number] [place] [address]- 0544 14 Jul, 2010 [facility] [address] [facility] [id number], [place] [address]- 5167 Oct, [facility] [place] [facility] [address] [id number], [place] [address]- 1964 Oct, [facility] [address] [id number], [place] [address]- 5357 Oct, [facility] [place] [facility] [address] [facility] [id number], [place] [address]- 5607 Oct, [facility] [place] [facility] [address] [id number], [place] [address]- 8178 Sep, [facility] [place] [facility] [address] [id number], [place] [address]- 2546 Sep, [facility] [place] [facility] [address] [id number], [place] [address] 2546 Sep, [facility] [place] [facility] [address] [id number], [place] [address]- 7571 Sep, [facility] [place] [facility] [address] [facility] [id number], [place] [address]- 4298 Sep, [facility] [place] [facility] [address] [facility] [id number] [place] [address]- 3727 11 Jul, 2009 [facility] [address] [facility] [id number], [place] [address]- 5975 10 Apr, 2009 [facility] [address] [facility] [id number] [place] [address]- 8587 12 Dec, 2008 IMMUNIZATIONS No Known Immunizations SOCIAL HISTORY Never Assessed REASON FOR VISIT requesting a returned call PLAN OF CARE VITAL SIGNS MEDICATIONS Unknown Medications RESULTS No Results PROCEDURES No Known procedures INSTRUCTIONS MEDICATIONS ADMINISTERED No Known Medications MEDICAL (GENERAL) HISTORY Type Description Date Medical History hypertension Medical History hyperlipidemia Medical History diabetes type II Medical History COPD Medical History asthma Surgical History hysterectomy Surgical History arthritis surgery Hospitalization History surgeries
--- OUTSIDE RECORDS SUMMARY | 2018-11-26 16:14 | XMS REPORT ---
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 Name Role Phone KING FISHMAN Unavailable PROBLEMS Type Condition ICD9-CM Code UYQ78-NM Code Onset Dates Condition Status SNOMED Code Problem Essential hypertension I10 Active 91677442 Problem Lumbago with sciatica, left side M54.42 Active 748712964 Problem Acquired hypothyroidism E03.9 Active 446271258 Problem Prediabetes R73.03 Active 713460164 Problem Reactive depression F32.9 Active 75224540 Problem Mixed hyperlipidemia E78.2 Active 389730890 Problem Pain in right ankle and joints of right foot M25.571 Active 42144452546192 Problem Chronic obstructive pulmonary disease, unspecified COPD type J44.9 Active 99111947 Problem Gastroesophageal reflux disease, esophagitis presence not specified K21.9 Active 851474428 Problem Lumbago with sciatica, right side M54.41 Active 20105701783896074 Problem Cigarette nicotine dependence without complication F17.210 Active 83940917 Problem Other chronic pain G89.29 Active [id number] ALLERGIES No Information ENCOUNTERS Encounter Location Date Diagnosis [facility] [address] [address] Jul, [facility] [id number] [place] [address] 62440- 1075 Jun, [facility] [id number] [place] [address] 05829- 5170 May, Acute nasopharyngitis J00 [facility] [address], [place] [address] May, [facility] [id number] [place] [address] 69395- 9203 May, [facility] [id number] [place] [address] 15516- 0060 Apr, [facility] [id number] [place] [address] 59608- 1821 Apr, [facility] [id number] [place] [address] 44264- 3724 Apr, [facility] [id number] [place] [address] 02935- 5584 Apr, [facility] [id number] [place] [address] 42229- 4988 Apr, Pain in right ankle and joints of right foot M25.571 [place] [id number] [place] [address] 64535- 7135 Apr, [place] [id number] [place] [address] 19123- 2111 Apr, Bronchitis J40 ; Pain in right ankle and joints of right foot M25.571 ; Other chronic pain G89.29 ; Prediabetes R73.03 ; Chronic obstructive pulmonary disease, unspecified COPD type J44.9 and Cigarette nicotine dependence without complication F17.210 [facility] [id number] [place] [address] 44955 -9298 Apr, Seasonal allergic rhinitis, unspecified trigger J30.2 [place] [id number] [place] [address] 85908- 5497 Apr, Onychomycosis B35.1 ; Onychocryptosis L60.0 and DM neuro manif type II E11.49 [place] [id number] [place] [address] 48980- 2233 Apr, Reactive depression F32.9 ; Thoracic myofascial strain, initial encounter S29.019A and Leg cramps R25.2 [place] [id number] [place] [address] 30310- 6308 March, [place] [id number] [place] [address] 84481- 3277 March, Type 2 diabetes mellitus with hyperglycemia E11.65 [place] [address] [address]89- 7128 March, Reactive depression F32.[address] [address]- 2944 March, Pain in thoracic spine M54.6 and Other chronic pain G89.29 [place] [address] 8[address]49- 7832 Feb, [place] [address] 27094- 0072 Jan, Reactive depression F32.9 ; Essential hypertension I10 ; Gastroesophageal reflux disease, esophagitis presence not specified K21.9 ; Lumbago with sciatica, left side M54.42 and Lumbago with sciatica, right side M54.41 [place] [address] 07600- 8406 Jan, Reactive depression F32.9 and Pharyngoesophageal dysphagia R13.14 [place] [address] 37680- 9844 Jan, [address] [address]52- 2177 Jan, Encounter for immunization Z23 [place] [address] 54696- 0818 Jan, Onychomycosis B35.1 and DM neuro manif type II E11.49 [place] [address] 75823- 8390 Jan, [address] 47372- 5483 Jan, Prediabetes R73.03 [place] [address] 32114- 5291 Dec, [facility] [id number] [place] [address] 69349- 1242 Dec, Essential hypertension I10 ; Mixed hyperlipidemia E78.2 ; Acquired hypothyroidism E03.9 ; Reactive depression F32.9 and Prediabetes R73.03 [place] [id number] [place] [address] 75460- 7801 Dec, [facility] [id number] [place] [address] 93702- 7255 Dec, [place] [id number] [place] [address] 41476- 8420 Dec, DM neuro manif type II E11.49 [facility] [id number] [place] [address] 91933 -6126 Dec, Bruise T14.8XXA ; Type 2 diabetes mellitus with hyperglycemia E11.65 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 [place] [id number] [place] [address] 36538- 4330 Oct, [place] [id number] [place] [address] 42810- 6291 March, Onychomycosis B35.1 and DM neuro manif type II E11.49 [place] [id number] [place] [address] 94777- 6591 Jun, [place] [id number] [place] [address] 68196- 8875 Jun, [place] [id number] [place] [address] 29949- 2750 Jun, COPD with acute exacerbation 491.21 [place] [id number] [place] [address] 99500- 2477 Apr, [place] [id number] [place] [address] 87112- 4429 Feb, [facility] [place] [facility] [address] [id number] [place] [address]- 0704 13 Feb, 2015 [facility] [place] [facility] [address] [id number] [place] [address]- 1984 26 Jan, 2015 [facility] [place] [facility] [address] [id number] [place] [address]- 3101 Jan, [facility] [place] [facility] [address] [id number] [place] [address]- 9935 Jan, [facility] [place] [facility] [address] [id number] [place] [address]- 5122 Jan, [facility] [place] [facility] [address] [id number] [place] [address]- 7435 24 Jan, 2015 [facility] [place] [facility] [address] [id number] [place] [address]- 4862 Jan, [facility] [place] [facility] [address] [id number] [place] [address]- 2497 Jan, [facility] [place] [facility] [address] [id number] [place] [address]- 2866 Jan, [facility] [place] [facility] [address] [id number] [place] [address]- 2834 23 Jan, 2015 [facility] [place] [facility] [address] [id number] [place] [address]- 6542 19 Jan, 2015 [facility] [place] [facility] [address] [id number] [place] [address]- 4738 19 Jan, 2015 [facility] [place] [facility] [address] [id number] [place] [address]- 2392 18 Jan, 2015 [facility] [place] [facility] [address] [id number] [place] [address]- 4296 18 Jan, 2015 [facility] [place] [facility] [address] [id number] [place] [address]- 6726 16 Jan, 2015 [facility] [place] [facility] [address] [id number], [place] [address]- 8644 16 Jan, 2015 [facility] [place] [facility] [address] [id number] [place] [address]- 4142 16 Jan, 2015 [facility] [place] [facility] [address] [id number] [place] 8423 16 Jan, 2015 [facility] [place] [facility] [address] [id number] [place] [address]- 1888 15 Jan, 2015 [facility] [place] [facility] [address] [id number] [place] [address]- 4771 13 Jan, 2015 [facility] [place] [facility] [address] [id number] [place] [address]- 0267 13 Jan, 2015 [facility] [place] [facility] [address] [id number] [place] [address]- 0029 13 Jan, 2015 [facility] [place] [facility] [address] [id number] [place] [address]- 5399 13 Jan, 2015 [facility] [place] [facility] [address] [id number] [place] [address]- 9380 12 Jan, 2015 [facility] [place] [facility] [address] [id number] [place] [address]- 4913 04 Jan, 2015 [facility] [place] [facility] [address] [id number] [place] [address]- 6238 04 Jan, 2015 [facility] [place] [facility] [address] [id number], [place] [address]- 6051 24 Dec, 2014 [facility] [place] [facility] [address] [id number] [place] [address]- 2940 Dec, [facility] [place] [facility] [address] [id number] [place] [address]- 9110 Dec, [facility] [place] [facility] [address] [id number] [place] [address]- 7534 Dec, [facility] [place] [facility] [address] [id number] [place] [address]- 3178 Dec, [facility] [place] [facility] [address] [id number] [place] [address]- 4677 Dec, 2014 [facility] [place] [facility] [address] [id number] [place] [address]- 7266 Dec, 2014 [facility] [place] [facility] [address] [id number] [place] [address]- 4194 Dec, 2014 [facility] [place] [facility] [address] [id number] [place] [address]- 2601 Dec, 2014 [facility] [place] [facility] [address] [id number] [place] [address]- 3942 Dec, 2014 [facility] [place] [facility] [address] [id number] [place] [address]- 1186 Dec, 2014 [facility] [place] [facility] [address] [id number] [place] [address]- 9608 Dec, [facility] [place] [facility] [address] [id number] [place] [address]- 8165 Nov, [facility] [place] [facility] [address] [id number] [place] [address]- 8176 Nov, [facility] [place] [facility] [address] [id number] [place] [address]- 4705 Nov, [facility] [place] [facility] [address] [id number] [place] [address]- 9312 Nov, [facility] [place] [facility] [address] [id number] [place] [address]- 2074 Nov, [facility] [place] [facility] [address] [id number] [place] [address] 2543 Nov, [facility] [place] [facility] [address] [id number] [place] [address]- 2542 Nov, [facility] [place] [facility] [address] [id number] [place] [address]- 2541 Nov, [facility] [place] [facility] [address] [id number] [place] [address]- 3351 Nov, [facility] [address] [id number] [place] [address]- 0069 Nov, [facility] [place] [facility] [address] [id number] [place] [address]- 1836 Nov, [facility] [place] [facility] [address] [id number] [place] [address]- 8513 Nov, [facility] [place] [facility] [address] [id number] [place] [address]- 1859 Oct, [facility] [place] [facility] [address] [id number] [place] [address]- 5283 Oct, [facility] [place] [facility] [address] [id number] [place] [address]- 7954 Oct, [facility] [address] [id number] [place] [address]- 9094 Oct, [facility] [place] [facility] [address] [id number] [place] [address]- 0968 Oct, [facility] [place] [facility] [address] [id number] [place] [address]- 5274 Oct, [facility] [place] [facility] [address] [id number] [place] [address]- 3832 Oct, [facility] [place] [facility] [address] [id number] [place] [address]- 9163 Oct, [facility] [place] [facility] [address] [id number] [place] [address]- 0753 Oct, [facility] [place] [facility] [address] [id number] [place] [address]- 9158 Oct, [facility] [place] [facility] [address] [id number] [place] [address]- 4421 16 Oct, 2014 [facility] [place] [facility] [address] [id number] [place] 0935 Oct, [facility] [place] [facility] [address] [id number] [place] [address]- 3932 15 Oct, 2014 [facility] [place] [facility] [address] [id number] [place] 0410 Oct, [facility] [place] [facility] [address] [id number] [place] 5991 Oct, [facility] [place] [facility] [address] [id number] [place] [address]- 9522 Sep, [facility] [place] [facility] [address] [id number] [place] [address]- 2846 Sep, [facility] [place] [facility] [address] [id number] [place] [address]- 2725 Sep, [facility] [place] [facility] [address] [id number] [place] [address]- 6718 Sep, [facility] [place] [facility] [address] [id number] [place] [address]- 1974 Aug, [facility] [place] [facility] [address] [id number] [place] [address]- 7810 Aug, [facility] [place] [facility] [address] [id number] [place] [address]- 9344 Aug, [facility] [place] [facility] [address] [id number] [place] [address]- 5818 Aug, [facility] [place] [facility] [address] [id number] [place] [address]- 7558 Aug, [facility] [place] [facility] [address] [id number] [place] [address]- 6856 Aug, [facility] [place] [facility] [address] [id number] [place] [address]- 5232 Jul, [facility] [place] [facility] [address] [id number] [place] 9613 29 Jul, 2014 [facility] [place] [facility] [address] [id number] [place] [address]- 5240 15 Jul, 2014 [facility] [place] [facility] [address] [id number] [place] [address]- 1880 15 Jul, 2014 [facility] [place] [facility] [address] [id number] [place] [address]- 9854 Jul, [facility] [place] [facility] [address] [id number] [place] [address]- 1739 Jul, [facility] [place] [facility] [address] [id number] [place] [address]- 9163 Jun, [facility] [place] [facility] [address] [id number] [place] [address]- 7452 Jun, [facility] [place] [facility] [address] [id number] [place] [address]- 1704 Jun, [facility] [place] [facility] [address] [id number] [place] [address]- 6210 Jun, [facility] [place] [facility] [address] [id number] [place] [address]- 5727 Jun, [facility] [place] [facility] [address] [id number] [place] [address]- 3483 Jun, [facility] [place] [facility] [address] [id number] [place] [address]- 0892 Jun, [facility] [place] [facility] [address] [id number] [place] [address]- 1432 May, [facility] [place] [facility] [address] [id number] [place] [address]- 1333 May, [facility] [place] [facility] [address] [id number] [place] [address]- 6902 May, [facility] [place] [facility] [address] [id number] [place] [address]- 0044 May, [facility] [place] [facility] [address] [id number] [place] [address]- 3291 May, [facility] [place] [facility] [address] [id number] [place] [address]- 1991 May, 2013 [facility] [place] [facility] [address] [id number] [place] [address]- 5119 May, 2013 [facility] [place] [facility] [address] [id number] [place] [address]- 4545 May, 2013 [facility] [place] [facility] [address] [id number] [place] [address]- 1014 May, 2013 [facility] [place] [facility] [address] [id number] [place] [address]- 6525 May, 2013 [facility] [place] [facility] [address] [id number] [place] [address]- 9241 May, [facility] [place] [facility] [address] [id number] [place] [address]- 4808 May, [facility] [place] [facility] [address] [id number] [place] [address]- 5104 Apr, [facility] [place] [facility] [address] [id number] [place] [address]- 3503 Apr, [facility] [place] [facility] [address] [id number] [place] [address]- 0576 Apr, [facility] [place] [facility] [address] [id number] [place] [address]- 9166 Apr, [facility] [place] [facility] [address] [id number] [place] [address]- 8307 Apr, [facility] [place] [facility] [address] [id number] [place] [address]- 8906 Apr, [facility] [place] [facility] [address] [id number] [place] [address]- 9959 Apr, [facility] [place] [facility] [address] [id number] [place] [address]- 1541 Apr, [facility] [place] [facility] [address] [id number] [place] [address]- 2553 Apr, [facility] [place] [facility] [address] [id number] [place] [address]- 4896 Apr, [facility] [place] [facility] [address] [id number] [place] [address]- 5962 March, [facility] [place] [facility] [address] [id number] [place] [address]- 8999 March, [facility] [place] [facility] [address] [id number] [place] [address]- 1747 March, [facility] [place] [facility] [address] [id number] [place] [address]- 7036 March, [facility] [place] [facility] [address] [id number] [place] [address]- 5719 March, [facility] [place] [facility] [address] [id number] [place] [address]- 2588 March, [facility] [place] [facility] [address] [id number] [place] [address]- 6878 Feb, [facility] [place] [facility] [address] [id number] [place] [address]- 2457 Feb, [facility] [place] [facility] [address] [id number] [place] [address]- 7356 Feb, [facility] [place] [facility] [address] [id number] [place] [address]- 4928 Feb, [facility] [place] [facility] [address] [id number] [place] [address]- 3936 Feb, [facility] [place] [facility] [address] [id number] [place] [address]- 6455 Feb, [facility] [place] [facility] [address] [id number] [place] [address]- 8829 Feb, [facility] [place] [facility] [address] [id number] [place] [address]- 7776 Feb, [facility] [place] [facility] [address] [id number], [place] [address]- 9249 Feb, [facility] [place] [facility] [address] [id number] [place]346 Feb, [facility] [place] [facility] [address] [id number] [place] [address]- 8905 Jan, [facility] [place] [facility] [address] [id number] [place] [address]- 9025 Jan, [facility] [place] [facility] [address] [id number] [place] [address]- 9808 Jan, [facility] [place] [facility] [address] [id number] [place] [address]- 7742 Jan, [facility] [place] [facility] [address] [id number] [place] [address]- 4306 Jan, [facility] [place] [facility] [address] [facility] [id number] [place] [address]- 5171 Jan, [facility] [place] [facility] [address] [id number] [place] [address]- 4143 Jan, [facility] [place] [facility] [address] [id number] [place] [address] Jan, [facility] [place] [facility] [address] [facility] [id number] [place] [address] Dec, [facility] [place] [facility] [address] [id number] [place] [address] Dec, [facility] [place] [facility] [address] [id number] [place] [address] Dec, [facility] [place] [facility] [address] [id number] [place] [address] Dec, [facility] [place] [facility] [address] [id number] [place] [address] Dec, [facility] [place] [facility] [address] [facility] [id number] [place] [address] Dec, [facility] [place] [facility] [address] [id number] [place] [address] Dec, [facility] [place] [facility] [address] [id number] [place] [address] Dec, [facility] [place] [facility] [address] [id number] [place] [address] Nov, [facility] [place] [facility] [address] [id number] [place] [address] Nov, [facility] [place] [facility] [address] [id number] [place] [address] Nov, [facility] [place] [facility] [address] [id number] [place] [address] Nov, [facility] [place] [facility] [address] [id number] [place] [address] Nov, [facility] [place] [facility] [address] [id number] [place] [address] Nov, [facility] [place] [facility] [address] [id number] [place] [address] Nov, [facility] [place] [facility] [address] [id number] [place] [address] Nov, [facility] [place] [facility] [address] [id number] [place] [address] Nov, [facility] [place] [facility] [address] [id number] [place] [address] Nov, [facility] [place] [facility] [address] [id number] [place] [address] Nov, [facility] [place] [facility] [address] [id number] [place] [address] Oct, [facility] [place] [facility] [address] [id number] [place] [address] Oct, [facility] [place] [facility] [address] [id number], [place] [address] Oct, [facility] [place] [facility] [address] [id number] [place] [address] Oct, [facility] [place] [facility] [address] [id number], [place] [address] Sep, [facility] [place] [facility] [address] [id number] [place] [address] Sep, [facility] [place] [facility] [address] [id number] [place] [address] Sep, [facility] [place] [facility] [address] [id number] [place] [address] Sep, [facility] [place] [facility] [address] [id number] [place] [address] Aug, [facility] [place] [facility] [address] [id number], [place] [address] Aug, [facility] [place] [facility] [address] [id number], [place] [address] Aug, [facility] [place] [facility] [address] [id number], [place] [address] Aug, [facility] [place] [facility] [address] [id number] [place] [address] Aug, [facility] [place] [facility] [address] [id number], [place] [address] Aug, [facility] [place] [facility] [address] [id number], [place] [address] Aug, [facility] [place] [facility] [address] [id number] [place] Aug, [facility] [place] [facility] [address] [id number], [place] [address] Jul, [facility] [place] [facility] [address] [id number] [place] [address] Jul, [facility] [place] [facility] [address] [id number] [place] [address] 2542 26 Sep, 2012 [facility] [address] [id number] [place] [address]46 24 Sep, 2012 [facility] [place] [facility] [address] [id number] [place] [address] 2546 24 Sep, 2012 [facility] [address] [id number] [place] [address] 2546 23 Sep, 2012 [facility] [address] [id number] [place] [address] 2545 19 Sep, 2012 [facility] [address] [id number] [place] [address] 18 Sep, 2012 [facility] [address] [id number] [place] [address] 17 Jul, 2012 [facility] [address] [id number] [place] [address] 16 Jul, 2012 [facility] [address] [id number] [place] [address] 13 Jul, 2012 [facility] [address] [id number] [place] [address]40 13 Jul, 2012 [facility] [address] [id number] [place] [address] 12 Jul, 2012 [facility] [address] [id number] [place] [address] 2547 11 Jul, 2012 [facility] [address] [id number] [place] [address] 2542 04 Jul, 2012 [facility] [place] [facility] [address] [id number] [place] [address] 2548 30 Jun, 2013 [facility] [place] [facility] [address] [id number] [place] [address] Jun, [facility] [place] [facility] [address] [id number] [place] [address] Jun, [facility] [address] [id number] [place] [address] 98[address] May, [facility] [place] [facility] [address] [id number] [place] [address] 6[address] May, [facility] [place] [facility] [address] [id number] [place] [address] 4457 May, [facility] [place] [facility] [address] [id number] [place] [address]3 May, [facility] [place] [facility] [address] [id number] [place] [address] 2875 Apr, [facility] [place] [facility] [address] [id number] [place] [address] 3760 Apr, [facility] [place] [facility] [address] [id number] [place] [address]15 Apr, [facility] [place] [facility] [address] [id number] [place] [address] 3067 Apr, [facility] [place] [facility] [address] [id number] [place] [address] 8604 March, [facility] [place] [facility] [address] [id number] [place] [address] 0583 March, [facility] [place] [facility] [address] [id number] [place] [address] 7220 March, [facility] [place] [facility] [address] [id number] [place] [address] 0541 Feb, [facility] [place] [facility] [address] [id number] [place] [address] 5495 Feb, [facility] [place] [facility] [address] [id number] [place] [address] 8636 Jan, [facility] [place] [facility] [address] [id number] [place] [address] 1915 Jan, [facility] [place] [facility] [address] [id number] [place] [address] 5307 Jan, [facility] [address] [id number] [place] [address] 8460 Jan, [facility] [address] [id number] [place] [address] 0056 Jan, [facility] [address] [id number] [place] [address]- 5856 Dec, [facility] [address] [id number] [place] [address] 2688 Dec, [facility] [address] [id number] [place] [address] 3464 Dec, [facility] [address] [id number] [place] [address]- 4516 Dec, [facility] [address] [id number] [place] [address]- 2592 Dec, [facility] [address] [id number] [place] [address]- 4632 Dec, [facility] [address] [id number] [place] [address] 4008 Dec, [facility] [address] [id number] [place] [address] 3564 Dec, [facility] [address] [id number] [place] [address]- 6767 Nov, [facility] [address] [id number] [place] [address] 2545 Nov, [facility] [place] [facility] [address] [id number] [place] [address]- 7030 Nov, [facility] [place] [facility] [address] [id number] [place] [address]- 2466 Nov, [facility] [address] [id number] [place] [address]- 2577 Nov, [facility] [place] [facility] [address] [id number] [place] [address]- 2867 Nov, [facility] [place] [facility] [address] [id number] [place] [address]- 3222 Nov, [facility] [place] [facility] [address] [id number] [place] [address]- 2258 Oct, [facility] [place] [facility] [address] [id number] [place] [address] 9690 Oct, [facility] [place] [facility] [address] [id number] [place] [address]- 7688 Oct, [facility] [place] [facility] [address] [id number] [place] [address]- 3249 Oct, [facility] [place] [facility] [address] [id number] [place] [address] 7215 Oct, [facility] [place] [facility] [address] [id number] [place] [address]- 5703 Oct, [facility] [place] [facility] [address] [id number] [place] [address]- 1078 Oct, [facility] [place] [facility] [address] [id number] [place] [address]- 6081 Oct, [facility] [place] [facility] [address] [id number] [place] [address]- 0460 Sep, [facility] [place] [facility] [address] [id number] [place] [address]- 4641 Sep, [facility] [place] [facility] [address] [id number] [place] [address]- 8557 Sep, [facility] [place] [facility] [address] [id number] [place] [address]- 2749 Sep, [facility] [place] [facility] [address] [id number] [place] [address]- 2755 Sep, [facility] [place] [facility] [address] [id number] [place] [address]- 5196 Sep, [facility] [place] [facility] [address] [id number] [place] [address]- 9071 Sep, [facility] [place] [facility] [address] [id number] [place] [address]- 4623 Sep, [facility] [place] [facility] [address] [id number] [place] [address]- 9991 Sep, [facility] [place] [facility] [address] [id number] [place] [address]- 8751 Sep, [facility] [place] [facility] [address] [id number] [place] [address]- 4220 Sep, [facility] [place] [facility] [address] [id number] [place] [address]- 7228 Sep, [facility] [place] [facility] [address] [id number] [place] [address]- 7531 Sep, [facility] [place] [facility] [address] [id number] [place] [address]- 0102 Sep, [facility] [place] [facility] [address] [id number] [place] [address]- 1582 Sep, [facility] [place] [facility] [address] [facility] [id number] [place] [address]- 2356 Sep, [facility] [place] [facility] [address] [id number] [place] [address]- 0881 Sep, [facility] [place] [facility] [address] [id number], [place] [address] 3359 Sep, [facility] [place] [facility] [address] [id number] [place] [address]- 7610 Sep, [facility] [place] [facility] [address] [id number] [place] [address]- 4657 Sep, [facility] [place] [facility] [address] [id number] [place] [address]- 0820 Aug, [facility] [place] [facility] [address] [id number] [place] [address]- 3092 31 Aug, 2011 [facility] [place] [facility] [address] [id number] [place] [address]- 7756 29 Aug, 2011 [facility] [place] [facility] [address] [id number] [place] [address]- 8152 27 Aug, 2011 [facility] [place] [facility] [address] [id number] [place] [address]- 8051 27 Aug, 2012 [facility] [place] [facility] [address] [id number] [place] [address]- 0020 18 Aug, 2012 [facility] [place] [facility] [address] [id number] [place] [address]- 5990 18 Aug, 2012 [facility] [place] [facility] [address] [id number] [place] [address]- 3920 17 Aug, 2012 [facility] [place] [facility] [address] [id number] [place] [address]- 6409 16 Aug, 2012 [facility] [place] [facility] [address] [id number] [place] [address]- 0012 16 Aug, 2012 [facility] [place] [facility] [address] [id number] [place] [address]- 1409 15 Aug, 2012 [facility] [place] [facility] [address] [id number] [place] [address]- 9132 09 Aug, 2012 [facility] [place] [facility] [address] [id number] [place] [address]- 8602 05 Aug, 2012 [facility] [place] [facility] [address] [id number] [place] [address]- 0031 05 Aug, 2012 [facility] [place] [facility] [address] [id number] [place] 04 Aug, 2012 [facility] [place] [facility] [address] [id number] [place] [address]- 9186 14 Jul, 2012 [facility] [place] [facility] [address] [id number] [place] [address]- 1017 Jul, [facility] [address] [id number] [place] [address]- 0684 Jun, [facility] [place] [facility] [address] [id number] [place] [address]- 8366 Jun, [facility] [place] [facility] [address] [id number] [place] [address]- 4609 May, [facility] [place] [facility] [address] [id number] [place] [address]- 1458 May, [facility] [place] [facility] [address] [id number] [place] [address]- 0280 May, [facility] [place] [facility] [address] [id number] [place] [address]- 3356 May, [facility] [place] [facility] [address] [id number] [place] [address]- 9577 May, [facility] [place] [facility] [address] [id number] [place] [address]- 2943 May, [facility] [place] [facility] [address] [id number] [place] [address]- 9411 Apr, [facility] [place] [facility] [address] [id number] [place] [address]- 2284 Apr, [facility] [place] [facility] [address] [id number] [place] [address]- 4296 March, [facility] [place] [facility] [address] [id number] [place] [address]- 4056 March, [facility] [place] [facility] [address] [id number] [place] [address]- 7566 March, [facility] [place] [facility] [address] [id number] [place] [address]- 9826 March, [facility] [place] [facility] [address] [id number] [place] [address]- 9843 March, [facility] [place] [facility] [address] [id number] [place] [address]- 2273 March, [facility] [address] [id number] [place] [address]- 6966 Feb, [facility] [place] [facility] [address] [id number] [place] [address]- 5726 Feb, [facility] [address] [id number] [place] [address]- 1856 Feb, [facility] [place] [facility] [address] [id number] [place] [address]- 8516 Feb, [facility] [address] [id number] [place] [address]- 5943 Feb, [facility] [address] [id number] [place] [address]- 3830 Feb, [facility] [address] [id number] [place] [address]- 8621 Feb, [facility] [address] [id number] [place] [address]- 2477 Feb, [facility] [place] [facility] [address] [id number] [place] [address]- 5789 Feb, [facility] [address] [id number] [place] [address]- 0143 Jan, [facility] [place] [facility] [address] [id number] [place] [address]- 9884 Jan, [facility] [place] [facility] [address] [id number] [place] [address]- 2789 Jan, [facility] [place] [facility] [address] [id number] [place] [address]- 7628 Jan, [facility] [place] [facility] [address] [id number] [place] [address]- 9656 Jan, [facility] [place] [facility] [address] [id number] [place] [address]- 8557 Jan, [facility] [place] [facility] [address] [id number] [place] [address]- 3193 14 Jan, 2012 [facility] [place] [facility] [address] [id number] [place] [address]- 7065 Jan, [facility] [place] [facility] [address] [id number] [place] [address]- 9376 09 Jan, 2012 [facility] [place] [facility] [address] [id number] [place] [address]- 9146 08 Jan, 2012 [facility] [place] [facility] [address] [id number] [place] [address]- 2736 07 Jan, 2012 [facility] [place] [facility] [address] [id number] [place] [address]- 4076 06 Jan, 2012 [facility] [place] [facility] [address] [facility] [id number] [place] [address]- 2702 Jan, [facility] [place] [facility] [address] [id number] [place] [address]- 4458 Jan, [facility] [place] [facility] [address] [id number] [place] [address]- 6962 Dec, [facility] [place] [facility] [address] [id number] [place] [address]- 4818 27 Dec, 2011 [facility] [place] [facility] [address] [facility] [id number] [place] [address]- 1023 Dec, [facility] [place] [facility] [address] [id number] [place] [address]- 1478 23 Dec, 2011 [facility] [place] [facility] [address] [id number] [place] [address]- 5229 16 Dec, 2011 [facility] [place] [facility] [address] [id number] [place] [address]- 1586 08 Dec, 2011 [facility] [place] [facility] [address] [facility] [id number] [place] [address]- 0851 08 Dec, 2011 [facility] [place] [facility] [address] [id number] [place] [address]- 9818 07 Dec, 2011 [facility] [address] [id number] [place] [address]- 7606 Dec, [facility] [address] [id number] [place] Nov, [facility] [address] [id number] [place] [address]- 5989 Nov, [facility] [address] [id number] [place] [address]- 2307 Nov, [facility] [address] [id number] [place] [address]- 4398 Nov, [facility] [address] [id number] [place] [address]- 0826 Oct, [facility] [address] [id number] [place] [address]- 8286 Oct, [facility] [address] [id number] [place] [address]- 3670 Oct, [facility] [address] [id number] [place] [address]- 7505 Oct, [facility] [address] [id number] [place] [address]- 3879 Oct, [facility] [address] [id number] [place] [address]- 7266 Oct, [facility] [address] [id number] [place] [address]- 9788 Oct, [facility] [address] [id number] [place] [address]- 9787 Sep, [facility] [address] [id number] [place] [address]- 6722 Sep, [facility] [address] [id number] [place] [address]- 8201 Sep, [facility] [place] [facility] [address] [id number] [place] [address]- 5283 Sep, [facility] [place] [facility] [address] [id number] [place] [address]- 1161 Sep, [facility] [place] [facility] [address] [id number] [place] [address]- 0398 Sep, [facility] [place] [facility] [address] [id number] [place] [address]- 7879 Sep, [facility] [place] [facility] [address] [id number] [place] 0475 Sep, [facility] [place] [facility] [address] [id number] [place] [address]- 4655 Sep, [facility] [place] [facility] [address] [id number] [place] [address]- 2529 Aug, [facility] [place] [facility] [address] [id number] [place] [address]- 3275 Aug, [facility] [place] [facility] [address] [id number] [place] [address]- 6888 Aug, [facility] [place] [facility] [address] [id number] [place] [address]- 5850 May, [facility] [place] [facility] [address] [id number] [place] [address]- 9089 Nov, [facility] [place] [facility] [address] [id number], [place] [address]- 7401 Oct, [facility] [place] [facility] [address] [id number] [place] [address]- 8457 Oct, [facility] [place] [facility] [address] [id number] [place] [address]- 5010 Oct, [facility] [place] [facility] [address] [id number] [place] [address]- 5693 Oct, [facility] [place] [facility] [address] [id number], [place] [address]- 3332 Oct, [facility] [address] [facility] [id number], [place] [address]- 9447 03 Sep, 2010 [facility] [address] [facility] [id number], [place] [address]- 0914 02 Sep, 2010 [facility] [id number], [place] [address]- 9250 14 Jul, 2010 [facility] [address] [facility] [id number], [place] [address]- 3041 31 Oct, 2009 [facility] [address] [facility] [id number] [place] [address] 2629 Oct, [facility] [address] [facility] [id number], [place] [address]- 8413 Oct, [facility] [id number], [place] [address]- 4483 Oct, [facility] [id number], [place] [address]- 8386 30 Sep, 2009 [facility] [id number], [place] [address]- 3185 Sep, [facility] [id number], [place] [address]- 7525 Sep, [facility] [id number], [place] [address]- 5156 Sep, [facility] [address] [id number], [place] [address]- 2446 Sep, [facility] [id number], [place] [address]- 9895 11 Jul, 2009 [facility] [address] [facility] [id number], [place] [address]- 1219 10 Apr, 2009 [facility] [address] [id number], [place] [address]- 9275 12 Dec, 2008 IMMUNIZATIONS Vaccine Route Administration Date Status FLULAVAL QUAD (6 MO AND UP) 2016 IM Intramuscular February 05, 2018 Administered SOCIAL HISTORY Never Assessed REASON FOR VISIT Flu shot- Phil RN PLAN OF CARE VITAL SIGNS MEDICATIONS Unknown Medications RESULTS No Results PROCEDURES Procedure Date Ordered Result Body Site FLULAVAL QUAD (6 MO AND UP) 2016February 05, 2018 SINGLE IMMUNIZATION ADMIN February 05, 2018 INSTRUCTIONS MEDICATIONS ADMINISTERED No Known Medications MEDICAL (GENERAL) HISTORY Type Description Date Medical History hypertension Medical History hyperlipidemia Medical History diabetes type II Medical History COPD Medical History asthma Surgical History hysterectomy Surgical History arthritis surgery Hospitalization History surgeries
--- OUTSIDE RECORDS SUMMARY | 2018-11-26 16:15 | XMS REPORT ---
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 Name Role Phone KING FISHMAN Unavailable PROBLEMS Type Condition ICD9-CM Code NCF40-DA Code Onset Dates Condition Status SNOMED Code Problem Essential hypertension I10 Active 03360710 Problem Lumbago with sciatica, left side M54.42 Active 247298996 Problem Acquired hypothyroidism E03.9 Active 508059566 Problem Prediabetes R73.03 Active 220373656 Problem Reactive depression F32.9 Active 30643037 Problem Mixed hyperlipidemia E78.2 Active 228939051 Problem Pain in right ankle and joints of right foot M25.571 Active 16222718262511 Problem Chronic obstructive pulmonary disease, unspecified COPD type J44.9 Active 05968427 Problem Gastroesophageal reflux disease, esophagitis presence not specified K21.9 Active 062117538 Problem Lumbago with sciatica, right side M54.41 Active 45862357867774673 Problem Cigarette nicotine dependence without complication F17.210 Active 21214473 Problem Other chronic pain G89.29 Active 58640793 ALLERGIES Substance Reaction Event Type Date Status Penicillin G Potassium anaphylaxis Drug Allergy Dec, Active Codeine Sulfate anaphylaxis Drug Allergy Dec, Active Aspirin hives Drug Allergy Dec, Active Peanut hives Non Drug Allergy Dec, Active ENCOUNTERS Encounter Location Date Diagnosis [facility] [address] [facility] [id number] [address] Jul, [facility] [address] [address] Jun, [facility] [address] [id number] [address] May, Acute nasopharyngitis J00 [facility] [id number] [place] [address] 84065- 2478 May, [facility] [id number] [place] [address] 50870- 9033 May, [facility] [id number] [place] [address] 77378- 8881 Apr, [place] [id number] [place] [address] 66365- 5257 Apr, [facility] [id number] [place] [address] 94865- 7650 Apr, [place] [id number] [place] [address] 79716- 5327 Apr, [facility] [id number] [place] [address] 17473- 2125 Apr, Pain in right ankle and joints of right foot M25.571 [place] [id number] [place] [address] 54603- 9105 Apr, [facility] [id number] [place] [address] 91149- 3400 Apr, Bronchitis J40 ; Pain in right ankle and joints of right foot M25.571 ; Other chronic pain G89.29 ; Prediabetes R73.03 ; Chronic obstructive pulmonary disease, unspecified COPD type J44.9 and Cigarette nicotine dependence without complication F17.210 [facility] [id number] [place] [address] 22347 -4217 Apr, Seasonal allergic rhinitis, unspecified trigger J30.2 [facility] [id number] [place] [address] 54654- 7125 08 Apr, 2018 Onychomycosis B35.1 ; Onychocryptosis L60.0 and DM neuro manif type II E11.49 [facility] [address] [place] [address] 72242- 4398 Apr, Reactive depression F32.9 ; Thoracic myofascial strain, initial encounter S29.019A and Leg cramps R25.2 [place] [address] [address]- 5854 March, [place] [address] 38428- 7870 March, Type 2 diabetes mellitus with hyperglycemia E11.65 [place] [address] 49274- 2536 March, Reactive depression F32.9 [place] [address] 81326- 3981 March, Pain in thoracic spine M54.6 and Other chronic pain G89.29 [place] [address] 96590- 3605 Feb, [place] [address] 84576- 9276 Jan, Reactive depression F32.9 ; Essential hypertension I10 ; Gastroesophageal reflux disease, esophagitis presence not specified K21.9 ; Lumbago with sciatica, left side M54.42 and Lumbago with sciatica, right side M54.41 [place] [address] 33639- 5249 Jan, Reactive depression F32.9 and Pharyngoesophageal dysphagia R13.14 [place] [address] 39161- 3071 Jan, [place] [address] 36517- 7228 Jan, Encounter for immunization Z23 [place] [address] 12975- 7019 Jan, Onychomycosis B35.1 and DM neuro manif type II E11.[address] 17329- 9314 Jan, [place] [id number] [place] [address] 39438- 1502 Jan, Prediabetes R73.03 [facility] [address] 32290- 4033 Dec, [facility] [id number] [place] [address] 84625- 0299 Dec, Essential hypertension I10 ; Mixed hyperlipidemia E78.2 ; Acquired hypothyroidism E03.9 ; Reactive depression F32.9 and Prediabetes R73.03 [facility] [id number] [place] [address] 92808- 1585 Dec, [place] [address] 95493- 0149 Dec, [place] [address] 85562- 6795 Dec, DM neuro manif type II E11.49 [facility] [id number] [place] [address] 28466 -9543 Dec, Bruise T14.8XXA ; Type 2 diabetes mellitus with hyperglycemia E11.65 and longterm current use of insulin Z79.4 [place] [id number] [place] [address] 78786- 0992 Oct, [place] [id number] [place] [address] 78961- 4048 March, Onychomycosis B35.1 and DM neuro manif type II E11.49 [facility] [id number] [place] [address] 31153- 1308 Jun, [place] [address] 99048- 1542 Jun, [facility] [id number] [place] [address] 13521- 5644 Jun, COPD with acute exacerbation 491.21 [place] [address] [place] [address]- 3926 15 Apr, 2015 [facility] [place] [facility] [address] [id number] [place] [address]- 5556 14 Feb, 2015 [facility] [place] [facility] [address] [id number] [place] [address]- 1299 13 Feb, 2015 [facility] [place] [facility] [address] [id number] [place] [address]- 1618 26 Jan, 2015 [facility] [place] [facility] [address] [id number] [place] [address]- 4895 Jan, [facility] [place] [facility] [address] [id number] [place] [address]- 8910 Jan, [facility] [place] [facility] [address] [id number] [place] [address]- 1974 Jan, [facility] [place] [facility] [address] [id number] [place] [address]- 4774 24 Jan, 2015 [facility] [place] [facility] [address] [id number] [place] [address]- 3209 Jan, [facility] [place] [facility] [address] [id number] [place] [address]- 7604 Jan, [facility] [place] [facility] [address] [id number] [place] [address]- 4030 Jan, [facility] [place] [facility] [address] [id number] [place] [address]- 3615 23 Jan, 2015 [facility] [place] [facility] [address] [id number] [place] [address]- 7388 Jan, [facility] [place] [facility] [address] [id number] [place] [address]- 9068 19 Jan, 2015 [facility] [place] [facility] [address] [id number] [place] [address]- 0472 18 Jan, 2015 [facility] [place] [facility] [address] [id number] [place] 2048 18 Jan, 2015 [facility] [place] [facility] [address] [id number] [place] [address]- 7538 16 Jan, 2015 [facility] [place] [facility] [address] [id number] [place] [address]- 8849 16 Jan, 2015 [facility] [place] [facility] [address] [id number] [place] [address]- 5290 16 Jan, 2015 [facility] [place] [facility] [address] [id number] [place] [address]- 3300 16 Jan, 2015 [facility] [place] [facility] [address] [id number] [place] [address]- 0268 15 Jan, 2015 [facility] [place] [facility] [address] [id number] [place] [address]- 4656 13 Jan, 2015 [facility] [place] [facility] [address] [id number] [place] [address]- 2156 13 Jan, 2015 [facility] [place] [facility] [address] [id number] [place] [address]- 7889 13 Jan, 2015 [facility] [place] [facility] [address] [id number] [place] [address]- 2861 13 Jan, 2015 [facility] [place] [facility] [address] [id number] [place] [address]- 2326 Jan, [facility] [place] [facility] [address] [id number] [place] [address]- 9835 Jan, [facility] [place] [facility] [address] [id number] [place] [address]- 9743 Jan, [facility] [place] [facility] [address] [id number] [place] [address]- 3833 Dec, [facility] [place] [facility] [address] [id number] [place] [address]- 8021 Dec, [facility] [place] [facility] [address] [id number] [place] [address]- 0943 Dec, [facility] [place] [facility] [address] [id number], [place] [address]- 6297 Dec, [facility] [place] [facility] [address] [id number] [place] [address]- 2636 Dec, [facility] [place] [facility] [address] [id number] [place]26 Dec, 2014 [facility] [place] [facility] [address] [id number] [place] [address]- 1845 Dec, 2014 [facility] [place] [facility] [address] [id number] [place] [address]- 3747 Dec, [facility] [place] [facility] [address] [id number] [place] [address]- 2014 Dec, 2014 [facility] [place] [facility] [address] [facility] [id number] [place] [address]- 5841 Dec, [facility] [place] [facility] [address] [facility] [id number] [place] [address]- 2781 Dec, [facility] [place] [facility] [address] [facility] [id number] [place] [address]- 0753 Dec, [facility] [place] [facility] [address] [facility] [id number] [place] [address]- 0021 Nov, [facility] [place] [facility] [address] [facility] [id number], [place] [address]- 7946 Nov, [facility] [place] [facility] [address] [facility] [id number] [place] [address]- 0019 Nov, [facility] [place] [facility] [address] [id number], [place] [address]- 7621 Nov, [facility] [place] [facility] [address] [id number] [place] [address]- 8438 Nov, [facility] [place] [facility] [address] [facility] [id number] [place] [address]- 9693 Nov, [facility] [place] [facility] [address] [facility] [id number], [place] [address]- 2958 Nov, [facility] [place] [facility] [address] [id number] [place] [address]- 9949 Nov, [facility] [place] [facility] [address] [id number] [place] [address]- 7129 Nov, [facility] [place] [facility] [address] [id number] [place] [address]- 1880 Nov, [facility] [place] [facility] [address] [id number] [place] [address]- 0190 Nov, [facility] [place] [facility] [address] [id number] [place] [address]- 1902 Nov, [facility] [place] [facility] [address] [id number] [place] [address]- 4464 Oct, [facility] [place] [facility] [address] [id number] [place] [address]- 9297 Oct, [facility] [place] [facility] [address] [id number] [place] [address]- 6340 30 Oct, 2014 [facility] [place] [facility] [address] [id number] [place] [address]- 4227 30 Oct, 2014 [facility] [place] [facility] [address] [id number] [place] [address]- 8832 Oct, [facility] [place] [facility] [address] [id number] [place] [address]- 0431 29 Oct, 2014 [facility] [place] [facility] [address] [id number] [place] [address]- 5588 Oct, [facility] [place] [facility] [address] [id number] [place] [address]- 4177 Oct, [facility] [place] [facility] [address] [id number] [place] [address]- 1499 Oct, [facility] [place] [facility] [address] [id number] [place] 0526 17 Oct, 2014 [facility] [place] [facility] [address] [id number], [place] [address]- 5176 16 Oct, 2014 [facility] [place] [facility] [address] [id number] [place] [address]- 4696 16 Oct, 2014 [facility] [place] [facility] [address] [id number], [place] [address]- 4180 Oct, [facility] [place] [facility] [address] [facility] [id number] [place] [address]- 1922 Oct, [facility] [place] [facility] [address] [id number] [place] [address]- 6630 Oct, [facility] [place] [facility] [address] [facility] [id number] [place] [address]- 2998 Sep, [facility] [place] [facility] [address] [facility] [id number] [place] [address]- 5810 Sep, [facility] [place] [facility] [address] [facility] [id number], [place] [address]- 0272 Sep, [facility] [place] [facility] [address] [facility] [id number], [place] [address]- 0560 Sep, [facility] [place] [facility] [address] [facility] [id number], [place] [address]- 4183 Aug, [facility] [place] [facility] [address] [facility] [id number], [place] [address]- 7116 Aug, [facility] [place] [facility] [address] [facility] [id number], [place] [address]- 9307 Aug, [facility] [place] [facility] [address] [facility] [id number], [place] [address]- 7675 Aug, [facility] [place] [facility] [address] [facility] [id number], [place] [address]- 3337 Aug, [facility] [place] [facility] [address] [facility] [id number], [place] [address]- 0930 Aug, [facility] [place] [facility] [address] [facility] [id number], [place] [address]- 3148 Jul, [facility] [place] [facility] [address] [id number] [place] [address]- 0870 29 Jul, 2013 [facility] [place] [facility] [address] [id number] [place] [address]- 2146 15 Jul, 2014 [facility] [place] [facility] [address] [id number] [place] [address]- 2546 Jul, [facility] [place] [facility] [address] [id number] [place] [address] 2546 Jul, [facility] [place] [facility] [address] [id number] [place] [address]- 2547 Jul, [facility] [place] [facility] [address] [id number] [place] [address]- 1957 Jun, [facility] [place] [facility] [address] [id number] [place] [address]- 1011 Jun, [facility] [place] [facility] [address] [id number] [place] [address]- 8178 Jun, [facility] [place] [facility] [address] [id number] [place] [address]- 9396 Jun, [facility] [place] [facility] [address] [id number] [place] [address]- 0184 Jun, [facility] [place] [facility] [address] [id number] [place] [address]- 2958 Jun, [facility] [place] [facility] [address] [id number] [place] [address]- 9608 Jun, [facility] [place] [facility] [address] [id number] [place] [address]- 5385 May, [facility] [place] [facility] [address] [id number] [place] [address]- 1039 May, [facility] [place] [facility] [address] [id number] [place] [address]- 9301 May, [facility] [place] [facility] [address] [id number] [place] [address]- 5997 May, [facility] [place] [facility] [address] [id number] [place] [address]- 4345 May, [facility] [place] [facility] [address] [id number] [place] [address]- 5822 May, [facility] [place] [facility] [address] [id number] [place] [address]- 2913 May, [facility] [place] [facility] [address] [id number] [place] [address]- 8480 May, [facility] [place] [facility] [address] [id number] [place] [address]- 1745 May, [facility] [place] [facility] [address] [id number] [place] [address]- 3698 May, [facility] [place] [facility] [address] [id number] [place] [address]- 6579 May, [facility] [place] [facility] [address] [id number] [place] [address]- 7867 May, [facility] [place] [facility] [address] [id number] [place] [address]- 4767 Apr, [facility] [place] [facility] [address] [id number] [place] [address]- 0842 Apr, [facility] [place] [facility] [address] [id number] [place] [address]- 2309 Apr, [facility] [place] [facility] [address] [id number] [place] [address]- 9057 Apr, [facility] [place] [facility] [address] [id number] [place] [address]- 3655 Apr, [facility] [place] [facility] [address] [id number] [place] [address]- 9850 Apr, [facility] [place] [facility] [address] [id number] [place] [address]- 0138 Apr, [facility] [place] [facility] [address] [id number] [place] [address]- 1546 Apr, [facility] [place] [facility] [address] [id number] [place] [address]- 2848 Apr, [facility] [place] [facility] [address] [id number] [place] [address]- 9722 Apr, [facility] [place] [facility] [address] [id number] [place] [address]- 5598 March, [facility] [place] [facility] [address] [id number] [place] [address]- 4171 March, [facility] [place] [facility] [address] [id number] [place] [address]- 5681 March, [facility] [place] [facility] [address] [id number] [place] [address]- 7694 March, [facility] [place] [facility] [address] [id number] [place] [address]- 0732 March, [facility] [place] [facility] [address] [id number] [place] [address]- 3429 March, [facility] [place] [facility] [address] [id number] [place] [address]- 7469 Feb, [facility] [place] [facility] [address] [id number] [place] [address]- 0130 Feb, [facility] [place] [facility] [address] [id number] [place] [address]- 3452 Feb, [facility] [place] [facility] [address] [id number] [place] [address]- 9852 Feb, [facility] [place] [facility] [address] [id number] [place] [address]- 0811 Feb, [facility] [place] [facility] [address] [id number] [place] [address]- 7673 Feb, [facility] [place] [facility] [address] [id number] [place] [address]- 1655 Feb, [facility] [place] [facility] [address] [id number] [place] [address]- 9508 Feb, [facility] [place] [facility] [address] [id number] [place] [address]- 9628 Feb, [facility] [place] [facility] [address] [id number] [place] [address]- 3917 Feb, [facility] [place] [facility] [address] [id number] [place] [address]- 3912 Jan, [facility] [place] [facility] [address] [id number] [place] [address]- 3966 Jan, [facility] [place] [facility] [address] [id number] [place] [address]- 1538 Jan, [facility] [place] [facility] [address] [id number] [place] [address]- 2136 Jan, [facility] [place] [facility] [address] [id number] [place] [address]- 2735 Jan, [facility] [place] [facility] [address] [id number] [place] [address]- 6138 Jan, [facility] [place] [facility] [address] [id number] [place] [address] Jan, [facility] [place] [facility] [address] [id number] [place] [address] Jan, [facility] [place] [facility] [address] [id number] [place] [address] Dec, [facility] [place] [facility] [address] [id number] [place] [address] Dec, [facility] [place] [facility] [address] [id number] [place] [address] Dec, [facility] [place] [facility] [address] [id number] [place] [address] Dec, [facility] [place] [facility] [address] [id number] [place] [address] Dec, [facility] [place] [facility] [address] [id number] [place] [address] Dec, [facility] [place] [facility] [address] [id number] [place] [address] Dec, [facility] [place] [facility] [address] [id number] [place] [address] Dec, [facility] [place] [facility] [address] [id number] [place] [address] Nov, [facility] [place] [facility] [address] [id number] [place] [address] Nov, [facility] [place] [facility] [address] [id number] [place] [address] Nov, [facility] [place] [facility] [address] [id number] [place] [address] Nov, [facility] [place] [facility] [address] [id number] [place] [address]- [address] Nov, [facility] [place] [facility] [address] [id number] [place] [address] Nov, [facility] [place] [facility] [address] [facility] [id number] [place] [address]- [address] Nov, [facility] [place] [facility] [address] [id number] [place] [address]- [address] Nov, [facility] [place] [facility] [address] [id number] [place] [address]- [address] Nov, [facility] [place] [facility] [address] [id number] [place] [address]- [address] Nov, [facility] [place] [facility] [address] [id number] [place] [address]- [address] Nov, [facility] [place] [facility] [address] [id number] [place] [address]- [address] Oct, [facility] [place] [facility] [address] [id number] [place] [address]- [address] Oct, [facility] [place] [facility] [address] [id number] [place] [address]- [address] Oct, [facility] [place] [facility] [address] [id number] [place] [address] Oct, [facility] [place] [facility] [address] [id number] [place] [address] Sep, [facility] [place] [facility] [address] [id number] [place] [address] Sep, [facility] [place] [facility] [address] [id number] [place] [address] Sep, [facility] [place] [facility] [address] [id number] [place] [address] Sep, [facility] [place] [facility] [address] [id number] [place] [address] Aug, [facility] [place] [facility] [address] [id number] [place] [address] Aug, [facility] [place] [facility] [address] [id number] [place] [address]- [address]98 Aug, [facility] [place] [facility] [address] [id number] [place] [address] Aug, [facility] [place] [facility] [address] [id number], [place] [address] Aug, [facility] [place] [facility] [address] [id number] [place] [address] Aug, [facility] [place] [facility] [address] [id number] [place] [address] Aug, [facility] [place] [facility] [address] [id number] [place] [address] Aug, [facility] [place] [facility] [address] [id number], [place] [address] 28 Sep, 2012 [facility] [place] [facility] [address] [id number] [place] [address]46 27 Sep, 2012 [facility] [place] [facility] [address] [id number] [place] [address]46 26 Jul, 2012 [facility] [place] [facility] [address] [id number] [place] [address]46 24 Sep, 2012 [facility] [place] [facility] [address] [id number] [place] [address] 2545 24 Sep, 2012 [facility] [place] [facility] [address] [id number] [place] [address] 2548 23 Jul, 2012 [facility] [place] [facility] [address] [id number] [place] [address]- [address] 19 Jul, 2012 [facility] [place] [facility] [address] [id number] [place] [address]- [address] 18 Jul, 2012 [facility] [place] [facility] [address] [id number] [place] [address]647 17 Jul, 2012 [facility] [place] [facility] [address] [id number] [place] [address] 2541 16 Jul, 2012 [facility] [place] [facility] [address] [id number] [place] [address] 2547 13 Jul, 2012 [facility] [place] [facility] [address] [id number] [place] [address] 254 13 Jul, 2012 [facility] [place] [facility] [address] [id number] [place] [address] 2549 12 Jul, 2012 [facility] [place] [facility] [address] [id number] [place] [address] 2540 11 Jul, 2012 [facility] [place] [facility] [address] [id number] [place] [address]- [address] 04 Jul, 2012 [facility] [place] [facility] [address] [id number] [place] [address]- [address] 30 Jun, 2013 [facility] [place] [facility] [address] [id number] [place] [address] Jun, [facility] [address] [id number] [place] [address]- [address] Jun, [facility] [address] [id number] [place] [address] May, [facility] [address] [id number] [place] [address] May, [facility] [address] [id number] [place] [address] May, [facility] [address] [id number] [place] [address] 3414 May, [facility] [address] [id number] [place] [address] Apr, [facility] [address] [id number] [place] [address] 9[address] Apr, [facility] [address] [id number] [place] [address] 90[address] Apr, [facility] [address] [id number] [place] [address] 1513 Apr, [facility] [address] [id number] [place] [address] 37[address] March, [facility] [address] [id number] [place] [address] 77[address] March, [facility] [address] [id number] [place] [address] 8980 March, [facility] [address] [id number] [place] [address] 8922 Feb, [facility] [place] [facility] [address] [id number] [place] [address]46 Feb, [facility] [address] [id number] [place] [address] 7585 Jan, [facility] [address] [id number] [place] [address] 44[address] Jan, [facility] [place] [facility] [address] [id number] [place] [address]- 6323 Jan, [facility] [address] [id number] [place] [address]- 1529 Jan, [facility] [place] [facility] [address] [id number] [place] [address]- 7596 Jan, [facility] [address] [id number] [place] [address] 9165 Dec, [facility] [place] [facility] [address] [id number] [place] [address] 9839 Dec, [facility] [address] [id number] [place] [address]- 8196 Dec, [facility] [place] [facility] [address] [id number] [place] [address] 6647 Dec, [facility] [place] [facility] [address] [id number] [place] [address]- 1744 Dec, [facility] [place] [facility] [address] [id number] [place] [address] 4763 Dec, [facility] [place] [facility] [address] [id number] [place] [address]- 9953 Dec, [facility] [place] [facility] [address] [id number] [place] [address] 4036 Dec, [facility] [place] [facility] [address] [id number] [place] [address] 4399 Nov, [facility] [place] [facility] [address] [id number] [place] [address] Nov, [facility] [place] [facility] [address] [id number] [place] [address] 3846 Nov, [facility] [place] [facility] [address] [id number] [place] [address]- 7611 Nov, [facility] [address] [id number] [place] [address] 9798 Nov, [facility] [address] [id number] [place] [address] 5132 Nov, [facility] [address] [id number] [place] [address]- 7380 Nov, [facility] [address] [id number] [place] [address]- 2421 Oct, [facility] [address] [id number] [place] [address] 9704 Oct, [facility] [address] [id number] [place] [address] 8979 Oct, [facility] [address] [id number] [place] [address] 6535 Oct, [facility] [address] [id number] [place] [address] 7225 Oct, [facility] [address] [id number] [place] [address] 0963 Oct, [facility] [address] [id number] [place] [address] 7091 Oct, [facility] [address] [id number] [place] [address] 2529 Oct, [facility] [address] [id number] [place] [address]- 4132 Sep, [facility] [place] [facility] [address] [id number] [place] [address] 9630 Sep, [facility] [place] [facility] [address] [id number] [place] [address]- 8167 Sep, [facility] [address] [id number] [place] [address] Sep, [facility] [place] [facility] [address] [id number] [place] [address] 5014 Sep, [facility] [place] [facility] [address] [id number] [place] [address]- 9876 Sep, [facility] [place] [facility] [address] [id number] [place] [address]- 2705 Sep, [facility] [place] [facility] [address] [id number] [place] [address]- 6904 Sep, [facility] [place] [facility] [address] [id number] [place] [address]- 9541 Sep, [facility] [place] [facility] [address] [id number] [place] [address]- 4238 Sep, [facility] [place] [facility] [address] [id number] [place] [address]- 3470 Sep, [facility] [place] [facility] [address] [id number], [place] [address]- 0047 Sep, [facility] [place] [facility] [address] [id number] [place] [address]- 5179 Sep, [facility] [place] [facility] [address] [id number], [place] [address]- 2772 Sep, [facility] [place] [facility] [address] [id number], [place] [address]- 9766 Sep, [facility] [place] [facility] [address] [id number], [place] [address]- 0655 Sep, [facility] [place] [facility] [address] [id number], [place] [address]- 5256 Sep, [facility] [place] [facility] [address] [id number], [place] [address]- 2313 Sep, [facility] [place] [facility] [address] [id number], [place] [address]- 0810 Sep, [facility] [place] [facility] [address] [id number], [place] [address]- 9623 Sep, [facility] [place] [facility] [address] [id number] [place] [address] 31 Aug, 2011 [facility] [place] [facility] [address] [facility] [id number], [place] [address]- 45[address] 31 Aug, 2011 [facility] [place] [facility] [address] [facility] [id number] [place] [address]- 3580 29 Aug, 2011 [facility] [place] [facility] [address] [facility] [id number], [place] [address]- 6625 27 Aug, 2011 [facility] [place] [facility] [address] [facility] [id number] [place] [address], [place] [address]- 3899 27 Aug, 2011 [facility] [place] [facility] [address] [facility] [id number], [place] [address]- 2884 18 Aug, 2012 [facility] [place] [facility] [address] [facility] [id number] [place] [address]- 7570 18 Aug, 2012 [facility] [place] [facility] [address] [facility] [id number], [place] [address]- 1998 17 Aug, 2012 [facility] [place] [facility] [address] [id number], [place] [address]- 0426 16 Aug, 2012 [facility] [place] [facility] [address] [facility] [id number], [place] [address]- 7583 16 Aug, 2012 [facility] [place] [facility] [address] [facility] [id number], [place] [address]- 0277 15 Aug, 2012 [facility] [place] [facility] [address] [facility] [id number], [place] [address]- 2256 09 Aug, 2012 [facility] [place] [facility] [address] [facility] [id number], [place] [address]- 5678 05 Aug, 2012 [facility] [place] [facility] [address] [facility] [id number], [place] [address]- 1230 05 Aug, 2012 [facility] [place] [facility] [address] [id number], [place] [address]- 5048 Aug, [facility] [place] [facility] [address] [id number] [place] [address]- 2565 14 Jul, 2012 [facility] [place] [facility] [address] [id number] [place] [address]- 9746 10 Jul, 2012 [facility] [place] [facility] [address] [id number] [place] [address]- 1806 31 Jun, 2012 [facility] [place] [facility] [address] [id number] [place] [address]- 4446 Jun, [facility] [place] [facility] [address] [id number] [place] [address]- 1682 31 May, 2012 [facility] [place] [facility] [address] [id number] [place] [address]- 2620 May, [facility] [place] [facility] [address] [id number] [place] [address]- 5172 May, [facility] [place] [facility] [address] [id number] [place] [address]- 5765 May, [facility] [place] [facility] [address] [id number] [place] [address]- 1099 May, [facility] [place] [facility] [address] [id number] [place] [address]- 8130 May, [facility] [place] [facility] [address] [id number] [place] [address]- 9683 Apr, [facility] [place] [facility] [address] [id number] [place] [address]- 0641 Apr, [facility] [place] [facility] [address] [id number] [place] [address]- 7031 March, [facility] [place] [facility] [address] [id number] [place] [address]- 6835 March, [facility] [place] [facility] [address] [id number] [place] [address]- 8976 March, [facility] [place] [facility] [address] [id number] [place] [address]- 5354 March, [facility] [address] [id number] [place] [address]- 6515 March, [facility] [place] [facility] [address] [id number] [place] [address]- 8283 March, [facility] [address] [id number] [place] [address]- 4190 Feb, [facility] [place] [facility] [address] [id number] [place] [address]- 3333 Feb, [facility] [address] [id number] [place] [address]- 8089 Feb, [facility] [place] [facility] [address] [id number] [place] [address]- 0797 Feb, [facility] [place] [facility] [address] [id number] [place] [address]- 5538 Feb, [facility] [place] [facility] [address] [id number] [place] [address]- 6342 Feb, [facility] [place] [facility] [address] [id number] [place] [address]- 3630 Feb, [facility] [place] [facility] [address] [id number] [place] [address]- 0780 Feb, [facility] [place] [facility] [address] [id number] [place] [address]- 3868 Feb, [facility] [place] [facility] [address] [id number], [place] [address]- 3402 Jan, [facility] [place] [facility] [address] [id number] [place] [address]- 4007 Jan, [facility] [place] [facility] [address] [id number] [place] [address]- 2051 Jan, [facility] [place] [facility] [address] [id number] [place] [address]- 2843 Jan, [facility] [place] [facility] [address] [id number] [place] [address]- 4876 21 Jan, 2012 [facility] [address] [id number] [place] [address]- 9756 20 Jan, 2012 [facility] [place] [facility] [address] [id number] [place] [address]- 7336 14 Jan, 2012 [facility] [place] [facility] [address] [id number] [place] [address]- 5326 09 Jan, 2012 [facility] [place] [facility] [address] [id number] [place] [address] 2546 09 Jan, 2012 [facility] [place] [facility] [address] [id number] [place] [address]- 0697 08 Jan, 2012 [facility] [place] [facility] [address] [id number] [place] [address]- 0746 07 Jan, 2012 [facility] [place] [facility] [address] [id number] [place] [address]- 2480 06 Jan, 2012 [facility] [place] [facility] [address] [id number] [place] [address]- 1864 02 Jan, 2012 [facility] [place] [facility] [address] [id number] [place] [address]- 9786 02 Jan, 2012 [facility] [place] [facility] [address] [facility] [id number] [place] [address]- 5743 28 Dec, 2011 [facility] [place] [facility] [address] [id number] [place] [address]- 7586 27 Dec, 2011 [facility] [place] [facility] [address] [id number] [place] [address]- 4381 25 Dec, 2011 [facility] [place] [facility] [address] [id number] [place] [address]- 3466 23 Dec, 2011 [facility] [place] [facility] [address] [facility] [id number] [place] [address]- 4046 16 Dec, 2011 [facility] [place] [facility] [address] [facility] [id number] [place] [address]- 9323 08 Dec, 2011 [facility] [address] [id number] [place] [address]- 7826 08 Dec, 2011 [facility] [place] [facility] [address] [id number] [place] [address]- 4626 Dec, [facility] [place] [facility] [address] [id number] [place] [address]- 4936 Dec, [facility] [place] [facility] [address] [id number] [place] [address]- 0307 Nov, [facility] [place] [facility] [address] [id number] [place] [address]- 4257 Nov, [facility] [place] [facility] [address] [id number] [place] [address]- 2075 Nov, [facility] [place] [facility] [address] [id number] [place] [address]- 7715 Nov, [facility] [place] [facility] [address] [id number] [place] [address]- 0780 Oct, [facility] [place] [facility] [address] [id number] [place] [address]- 6662 Oct, [facility] [place] [facility] [address] [id number] [place] [address]- 9648 Oct, [facility] [place] [facility] [address] [id number] [place] [address]- 7864 Oct, [facility] [place] [facility] [address] [id number], [place] [address]- 8114 Oct, [facility] [place] [facility] [address] [id number] [place] [address]- 6396 Oct, [facility] [place] [facility] [address] [id number] [place] [address]- 7286 Oct, [facility] [place] [facility] [address] [id number] [place] [address]- 7418 Sep, [facility] [place] [facility] [address] [id number] [place] [address]- 3490 Sep, [facility] [place] [facility] [address] [id number] [place] [address]- 9114 Sep, [facility] [place] [facility] [address] [id number] [place] [address]- 1506 Sep, [facility] [place] [facility] [address] [id number] [place] [address]- 7288 Sep, [facility] [place] [facility] [address] [id number] [place] [address]- 7375 Sep, [facility] [place] [facility] [address] [id number] [place] [address]- 8266 Sep, [facility] [place] [facility] [address] [id number] [place] [address]- 8522 Sep, [facility] [place] [facility] [address] [id number] [place] [address]- 1308 Sep, [facility] [place] [facility] [address] [id number] [place] [address]- 6877 Aug, [facility] [place] [facility] [address] [id number] [place] [address]- 9627 Aug, [facility] [place] [facility] [address] [id number] [place] [address]- 2228 Aug, [facility] [place] [facility] [address] [id number] [place] [address]- 6804 May, [facility] [place] [facility] [address] [id number] [place] [address]- 4591 Nov, [facility] [place] [facility] [address] [id number] [place] [address]- 4744 Oct, [facility] [place] [facility] [address] [id number] [place] [address]- 1291 Oct, [facility] [place] [facility] [address] [id number] [place] [address]- 4963 Oct, [facility] [place] [facility] [address] [id number] [place] [address]- 0318 Oct, [facility] [address] [id number] [place] [address]- 0031 Oct, [facility] [address] [id number] [place] [address]- 6478 Sep, [facility] [address] [id number] [place] [address]- 9614 Sep, [facility] [address] [id number] [place] [address]- 6252 14 Jul, 2010 [facility] [address] [id number] [place] [address]- 9379 Oct, [facility] [address] [id number] [place] [address]- 8938 Oct, [facility] [address] [id number] [place] [address]- 7397 Oct, [facility] [address] [id number] [place] [address]- 9622 Oct, [facility] [address] [id number], [place] [address]- 7393 Sep, [facility] [address] [facility] [id number] [place] [address]- 9045 Sep, [facility] [address] [id number], [place] [address]- 3995 Sep, [facility] [address] [id number] [place] [address]- 8045 Sep, [facility] [place] [facility] [address] [id number], [place] [address]- 6001 Sep, [facility] [address] [id number], [place] [address]- 6304 11 Jul, 2009 [facility] [address] [id number], [place] [address]- 1697 Apr, [facility] [address] [facility] [id number] [place] [address]- 9903 Dec, IMMUNIZATIONS No Known Immunizations SOCIAL HISTORY Never Assessed REASON FOR VISIT Establish Care -- tadeo akhtar, PHQ2, AUDIT C, having vomiting , diarrhea, runninmg nose , cough x 2 days , patient states she would like a complete blood test to check her sugar level and cholesterol PLAN OF CARE VITAL SIGNS Height 67 in 2018 Weight 181.4 lbs 2018 Temperature 98.0 degrees Fahrenheit 2018 Heart Rate 86 bpm 2018 Respiratory Rate 18 2018 BMI 28.41 kg/m2 2018 Blood pressure systolic 140 mmHg 2018 Blood pressure diastolic 86 mmHg 2018 MEDICATIONS Medication Instructions Dosage Frequency Start Date End Date Duration Status Amlodipine Besylate 5 MG Orally Once a day 1 tablet 24h Active metformin 500 mg 1 tablet by Oral route 2 times per day Oct, Not-Taking Oxybutynin Chloride 15 mg take 1 tablet (15 mg) by oral route once daily Jan, Not-Taking Symbicort 80-4.5 mcg/actuation inhale 2 puffs by inhalation route 2 times per day in the morning and evening March, Not-Taking Test strips as directed Dec, Not-Taking Atorvastatin Calcium 40 MG Orally Once a day 1 tablet 24h Active Clopidogrel Bisulfate 75 MG Orally Once a day 1 tablet 24h Active Hydrocodone-Acetaminophen 5-325 mg 1 Tablet by Oral route every 8-12 hours PRN MUST LAST 30 DAYS Jan, Not-Taking Meloxicam 15 MG Orally Once a day 1 tablet 24h Active Metformin HCl 500 MG Orally Twice a day 1 tablet with meals 12h Active BuPROPion HCl 75 MG Orally Once a day 1 tablet 24h Dec, 30 day( s) Active Lisinopril 5 MG Orally Once a day 1 tablet 24h Active Diflucan 100 mg 1 tablet by Oral route 1 time per day for 5 days Jan Not-Taking Loratadine 10 mg take 1 tablet by Oral route 1 time per day take at hs Nov, Active ProAir HFA 90 mcg/actuation inhale 2 puffs by Inhalation route every 4 hours as needed PRN shortness of breath/cough March, Not- Taking Gabapentin 300 MG Orally Once a day 1 capsule before bedtime 24h Active HydrOXYzine HCl 10 MG Active Plavix 75 mg take 1 tablet (75 mg) by oral route once daily Dec, Not-Taking Famotidine 20 mg take 1 tablet (20 mg) by oral route 2 times per day Dec, Not-Taking NovoLog Flexpen 100 unit/mL 10 units by Subcutaneous route 4 times per day Aug, Not-Taking Nitroglycerin 0.[address] 1 tablet by Buccal route 1 time per day until relief is obtained PRN March, Not-Taking Lipitor 40 mg 1 tablet by Oral route 1 time per day Dec, Not-Taking Paxil 10 mg 1 tablet by Oral route 1 time per day fluoxetine is stopped Dec, Not-Taking Accu-Chek Ranjana SmartView w/Device as directed Dec, Not- Taking Combivent Respimat 20-100 mcg/actuation inhale 1 puff ; may take additional puffs as needed 4 times per day not to exceed 6 puffs in 24hrs Apr, Not-Taking One Touch Delica Lancets - as directed Dec, Not-Taking Neurontin 300 mg 2 capsule by Oral route 3 times per day Dec, Not-Taking levothyroxine 50 mcg 1 tablet by Oral route 1 time per day NEW DOSE Dec, Active Metoprolol Tartrate 25 mg 0.5 Tablet by Oral route 2 daily Dec, Not-Taking RESULTS No Results PROCEDURES Procedure Date Ordered Result Body Site [facility] INSTRUCTIONS MEDICATIONS ADMINISTERED No Known Medications MEDICAL (GENERAL) HISTORY Type Description Date Medical History hypertension Medical History hyperlipidemia Medical History diabetes type II Medical History COPD Medical History asthma Surgical History hysterectomy Surgical History arthritis surgery Hospitalization History surgeries
--- OUTSIDE RECORDS SUMMARY | 2018-11-26 16:16 | XMS REPORT ---
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 Name Role Phone KING FISHMAN Unavailable PROBLEMS Type Condition ICD9-CM Code VBG62-VT Code Onset Dates Condition Status SNOMED Code Problem Essential hypertension I10 Active 34402447 Problem Lumbago with sciatica, left side M54.42 Active 469760516 Problem Acquired hypothyroidism E03.9 Active 346523173 Problem Prediabetes R73.03 Active 974518781 Problem Reactive depression F32.9 Active 69378072 Problem Mixed hyperlipidemia E78.2 Active 544306244 Problem Pain in right ankle and joints of right foot M25.571 Active 66740838918220 Problem Chronic obstructive pulmonary disease, unspecified COPD type J44.9 Active 50206789 Problem Gastroesophageal reflux disease, esophagitis presence not specified K21.9 Active 226523323 Problem Lumbago with sciatica, right side M54.41 Active 25639665835881510 Problem Cigarette nicotine dependence without complication F17.210 Active 87576296 Problem Other chronic pain G89.29 Active 45095381 ALLERGIES No Information ENCOUNTERS Encounter Location Date Diagnosis [facility] [address] [address] Jul, [facility] [id number] [place] [address] 64277- 9130 Jun, [facility] [id number] [place] [address] 27556- 8203 May, Acute nasopharyngitis J00 [facility] [address] [address] May, [facility] [id number] [place] [address] 59441- 2657 May, [facility] [id number] [place] [address] 23069- 5470 Apr, [facility] [id number] [place] [address] 27574- 6276 Apr, [facility] [id number] [place] [address] 28437- 6802 Apr, [facility] [id number] [place] [address] 65446- 3889 Apr, [facility] [id number] [place] [address] 01543- 5276 Apr, Pain in right ankle and joints of right foot M25.571 [facility] [id number] [place] [address] 49023- 6322 Apr, [facility] [id number] [place] [address] 03144- 5612 Apr, Bronchitis J40 ; Pain in right ankle and joints of right foot M25.571 ; Other chronic pain G89.29 ; Prediabetes R73.03 ; Chronic obstructive pulmonary disease, unspecified COPD type J44.9 and Cigarette nicotine dependence without complication F17.210 [facility] WALK IN [facility] [id number] [place] [address] 65838 -6563 Apr, Seasonal allergic rhinitis, unspecified trigger J30.2 [facility] [id number] [place] [address] 41386- 0360 Apr, Onychomycosis B35.1 ; Onychocryptosis L60.0 and DM neuro manif type II E11.49 [facility] [id number] [place] [address] 97300- 9336 Apr, Reactive depression F32.9 ; Thoracic myofascial strain, initial encounter S29.019A and Leg cramps R25.2 [facility] [id number] [place] [address] 65350- 4270 March, [facility] [id number] [place] [address] 96939- 9822 March, Type 2 diabetes mellitus with hyperglycemia E11.65 [facility] [address] [address]- 3384 March, Reactive depression F32.[address] [address]- 1546 March, Pain in thoracic spine M54.6 and Other chronic pain G89.29 [place] [facility] [address] 07409- 6577 Feb, [facility] [address] 10434- 1557 Jan, Reactive depression F32.9 ; Essential hypertension I10 ; Gastroesophageal reflux disease, esophagitis presence not specified K21.9 ; Lumbago with sciatica, left side M54.42 and Lumbago with sciatica, right side M54.41 [facility] [address] 89871- 6034 Jan, Reactive depression F32.9 and Pharyngoesophageal dysphagia R13.14 [facility] [address] 48915- 3019 Jan, [address] 57178- 1687 Jan, Encounter for immunization Z23 [facility] [facility] [address] 31163- 3639 Jan, Onychomycosis B35.1 and DM neuro manif type II E11.49 [facility] [facility] [address] 43007- 1085 Jan, [address] 87441- 0461 Jan, Prediabetes R73.03 [facility] [address] 93770- 5256 Dec, [facility] [id number] [place] [address] 93508- 3466 Dec, Essential hypertension I10 ; Mixed hyperlipidemia E78.2 ; Acquired hypothyroidism E03.9 ; Reactive depression F32.9 and Prediabetes R73.03 [facility] [id number] [place] [address] 94738- 7097 Dec, [facility] [id number] [place] [address] 68695- 9000 Dec, [facility] [id number] [place] [address] 24068- 5036 Dec, DM neuro manif type II E11.49 [facility] IN [facility] [id number] [place] [address] 36821 -8133 Dec, Bruise T14.8XXA ; Type 2 diabetes mellitus with hyperglycemia E11.65 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 [facility] [facility] [id number] [place] [address] 10347- 5397 Oct, [facility] [id number] [place] [address] 82209- 3600 March, Onychomycosis B35.1 and DM neuro manif type II E11.49 [facility] [id number] [place] [address] 41951- 7659 Jun, [facility] [id number] [place] [address] 02859- 6970 Jun, [facility] [id number] [place] [address] 75434- 3503 Jun, COPD with acute exacerbation 491.21 [facility] [id number] [place] [address] 61478- 9817 Apr, [facility] [id number] [place] [address] 48218- 4469 Feb, [facility] [place] [facility] [address] [id number] [place] [address]- 9045 13 Feb, 2015 [facility] [place] [facility] [address] [id number] [place] [address]- 7014 26 Jan, 2015 [facility] [place] [facility] [address] [id number] [place] [address]- 4449 Jan, [facility] [place] [facility] [address] [id number] [place] [address]- 7757 Jan, [facility] [place] [facility] [address] [id number] [place] [address]- 0311 Jan, [facility] [place] [facility] [address] [id number] [place] [address]- 3045 24 Jan, 2015 [facility] [place] [facility] [address] [id number] [place] [address]- 4177 Jan, [facility] [place] [facility] [address] [id number] [place] [address]- 2070 Jan, [facility] [place] [facility] [address] [id number] [place] [address]- 3164 Jan, [facility] [place] [facility] [address] [id number] [place] [address]- 4364 23 Jan, 2015 [facility] [place] [facility] [address] [id number] [place] [address]- 7898 19 Jan, 2015 [facility] [place] [facility] [address] [id number] [place] [address]- 6813 19 Jan, 2015 [facility] [place] [facility] [address] [id number] [place] [address]- 9670 18 Jan, 2015 [facility] [place] [facility] [address] [id number] [place] [address]- 0298 18 Jan, 2015 [facility] [place] [facility] [address] [id number] [place] [address]- 5325 16 Jan, 2015 [facility] [place] [facility] [address] [id number] [address]- 4640 16 Jan, 2015 [facility] [place] [facility] [address] [id number] [place] [address]- 9790 16 Jan, 2015 [facility] [place] [facility] [address] [id number] [place] 2027 16 Jan, 2015 [facility] [place] [facility] [address] [id number] [place] [address]- 2156 15 Jan, 2015 [facility] [place] [facility] [address] [id number] [place] [address]- 2305 13 Jan, 2015 [facility] [place] [facility] [address] [id number] [place] [address]- 7251 13 Jan, 2015 [facility] [place] [facility] [address] [id number] [place] [address]- 1772 13 Jan, 2015 [facility] [place] [facility] [address] [id number] [place] [address]- 0067 13 Jan, 2015 [facility] [place] [facility] [address] [id number] [place] [address]- 1819 12 Jan, 2015 [facility] [place] [facility] [address] [id number] [place] [address]- 0196 04 Jan, 2015 [facility] [place] [facility] [address] [id number] [place] [address]- 6806 04 Jan, 2015 [facility] [place] [facility] [address] [id number] [address]- 3347 24 Dec, 2014 [facility] [place] [facility] [address] [id number] [place] [address]- 4602 Dec, [facility] [place] [facility] [address] [id number] [place] [address]- 5267 Dec, [facility] [place] [facility] [address] [id number] [place] [address]- 6465 Dec, [facility] [place] [facility] [address] [id number] [place] [address]- 8998 Dec, [facility] [place] [facility] [address] [id number] [place] [address]- 3473 Dec, 2014 [facility] [place] [facility] [address] [id number] [place] [address]- 2346 Dec, 2014 [facility] [place] [facility] [address] [id number] [place] [address]- 8362 Dec, 2014 [facility] [place] [facility] [address] [id number] [place] [address]- 2619 Dec, 2014 [facility] [place] [facility] [address] [id number] [place] [address]- 0342 Dec, 2014 [facility] [place] [facility] [address] [id number] [place] [address]- 3756 Dec, 2014 [facility] [place] [facility] [address] [id number] [place] [address]- 6907 Dec, [facility] [place] [facility] [address] [id number] [place] [address]- 9714 Nov, [facility] [place] [facility] [address] [id number] [place] [address]- 4682 Nov, [facility] [place] [facility] [address] [id number] [place] [address]- 2050 Nov, [facility] [place] [facility] [address] [id number] [place] [address]- 3093 Nov, [facility] [place] [facility] [address] [id number] [place] [address]- 4077 Nov, [facility] [place] [facility] [address] [id number] [place] [address] 2543 Nov, [facility] [place] [facility] [address] [id number] [place] [address]- 2548 Nov, [facility] [place] [facility] [address] [id number] [place] [address]- 2544 Nov, [facility] [place] [facility] [address] [id number] [place] [address]- 9175 Nov, [facility] [address] [id number] [place] [address]- 9105 Nov, [facility] [place] [facility] [address] [id number] [place] [address]- 6584 Nov, [facility] [place] [facility] [address] [id number] [place] [address]- 7786 Nov, [facility] [place] [facility] [address] [id number] [place] [address]- 5330 Oct, [facility] [place] [facility] [address] [id number] [place] [address]- 1329 Oct, [facility] [place] [facility] [address] [id number] [place] [address]- 2168 Oct, [facility] [address] [id number] [place] [address]- 9841 Oct, [facility] [place] [facility] [address] [id number] [place] [address]- 6154 Oct, [facility] [place] [facility] [address] [id number] [place] [address]- 3824 Oct, [facility] [place] [facility] [address] [id number] [place] [address]- 3790 Oct, [facility] [place] [facility] [address] [id number] [place] [address]- 8042 Oct, [facility] [place] [facility] [address] [id number] [place] [address]- 0294 Oct, [facility] [place] [facility] [address] [id number] [place] [address]- 4480 Oct, [facility] [place] [facility] [address] [id number] [place] [address]- 0681 16 Oct, 2014 [facility] [place] [facility] [address] [id number] [place] 7611 Oct, [facility] [place] [facility] [address] [id number] [place] [address]- 1576 15 Oct, 2014 [facility] [place] [facility] [address] [id number] [place] 2569 Oct, [facility] [place] [facility] [address] [id number] [place] 9047 Oct, [facility] [place] [facility] [address] [id number] [place] [address]- 5441 Sep, [facility] [place] [facility] [address] [id number] [place] [address]- 8588 Sep, [facility] [place] [facility] [address] [id number] [place] [address]- 5899 Sep, [facility] [place] [facility] [address] [id number] [place] [address]- 8870 Sep, [facility] [place] [facility] [address] [id number] [place] [address]- 2241 Aug, [facility] [place] [facility] [address] [id number] [place] [address]- 5105 Aug, [facility] [place] [facility] [address] [id number] [place] [address]- 9456 Aug, [facility] [place] [facility] [address] [id number] [place] [address]- 9403 Aug, [facility] [place] [facility] [address] [id number] [place] [address]- 7803 Aug, [facility] [place] [facility] [address] [id number] [place] 6274 Aug, [facility] [place] [facility] [address] [id number] [place] [address]- 1738 Jul, [facility] [place] [facility] [address] [id number] [place] 0823 29 Jul, 2014 [facility] [place] [facility] [address] [id number] [place] [address]- 9403 15 Jul, 2014 [facility] [place] [facility] [address] [id number] [place] [address]- 1313 15 Jul, 2014 [facility] [place] [facility] [address] [id number] [place] [address]- 8090 Jul, [facility] [place] [facility] [address] [id number] [place] [address]- 4520 Jul, [facility] [place] [facility] [address] [id number] [place] [address]- 0882 Jun, [facility] [place] [facility] [address] [id number] [place] [address]- 5843 Jun, [facility] [place] [facility] [address] [id number] [place] [address]- 1951 Jun, [facility] [place] [facility] [address] [id number] [place] [address]- 5796 Jun, [facility] [place] [facility] [address] [id number] [place] [address]- 8705 Jun, [facility] [place] [facility] [address] [id number] [place] [address]- 0559 Jun, [facility] [place] [facility] [address] [id number] [place] [address]- 7746 Jun, [facility] [place] [facility] [address] [id number] [place] [address]- 8836 May, [facility] [place] [facility] [address] [id number] [place] [address]- 6008 May, [facility] [place] [facility] [address] [id number] [place] [address]- 0934 May, [facility] [place] [facility] [address] [id number] [place] [address]- 9694 May, [facility] [place] [facility] [address] [id number] [place] [address]- 6869 May, [facility] [place] [facility] [address] [id number] [place] [address]- 0870 May, 2013 [facility] [place] [facility] [address] [id number] [place] [address]- 0559 May, 2013 [facility] [place] [facility] [address] [id number] [place] [address]- 1262 May, 2013 [facility] [place] [facility] [address] [id number] [place] [address]- 0577 May, 2013 [facility] [place] [facility] [address] [id number] [place] [address]- 0502 May, 2013 [facility] [place] [facility] [address] [id number] [place] [address]- 3072 May, [facility] [place] [facility] [address] [id number] [place] [address]- 6721 May, [facility] [place] [facility] [address] [id number] [place] [address]- 5805 Apr, [facility] [place] [facility] [address] [id number] [place] [address]- 9697 Apr, [facility] [place] [facility] [address] [id number] [place] [address]- 0443 Apr, [facility] [place] [facility] [address] [id number] [place] [address]- 5630 Apr, [facility] [place] [facility] [address] [id number] [place] [address]- 8498 Apr, [facility] [place] [facility] [address] [id number] [place] [address]- 8530 Apr, [facility] [place] [facility] [address] [id number] [place] [address]- 0437 Apr, [facility] [place] [facility] [address] [id number] [place] [address]- 7674 Apr, [facility] [place] [facility] [address] [id number] [place] [address]- 3950 Apr, [facility] [place] [facility] [address] [id number] [place] [address]- 6633 Apr, [facility] [place] [facility] [address] [id number] [place] [address]- 7214 March, [facility] [place] [facility] [address] [id number] [place] [address]- 0639 March, [facility] [place] [facility] [address] [id number] [place] [address]- 8683 March, [facility] [place] [facility] [address] [id number] [place] [address]- 9303 March, [facility] [place] [facility] [address] [id number] [place] [address]- 7954 March, [facility] [place] [facility] [address] [id number] [place] [address]- 9560 March, [facility] [place] [facility] [address] [id number] [place] [address]- 9741 Feb, [facility] [place] [facility] [address] [id number] [place] [address]- 2391 Feb, [facility] [place] [facility] [address] [id number] [place] [address]- 9769 Feb, [facility] [place] [facility] [address] [id number] [place] [address]- 0140 Feb, [facility] [place] [facility] [address] [id number] [place] [address]- 1708 Feb, [facility] [place] [facility] [address] [id number] [place] [address]- 7479 Feb, [facility] [place] [facility] [address] [id number] [place] [address]- 1485 Feb, [facility] [place] [facility] [address] [id number] [place] [address]- 2671 Feb, [facility] [place] [facility] [address] [id number] [place] [address]- 0623 Feb, [facility] [place] [facility] [address] [id number] [place] 0847 Feb, [facility] [place] [facility] [address] [id number] [place] [address]- 2733 Jan, [facility] [place] [facility] [address] [id number] [place] [address]- 8149 Jan, [facility] [place] [facility] [address] [id number] [place] [address]- 4194 Jan, [facility] [place] [facility] [address] [id number] [place] [address]- 7239 Jan, [facility] [place] [facility] [address] [id number] [place] [address]- 7761 Jan, [facility] [place] [facility] [address] [facility] [id number] [place] [address]- 1001 Jan, [facility] [place] [facility] [address] [id number] [place] [address]- 6826 Jan, [facility] [place] [facility] [address] [id number] [place] [address] Jan, [facility] [place] [facility] [address] [facility] [id number] [place] [address] Dec, [facility] [place] [facility] [address] [id number] [place] [address] Dec, [facility] [place] [facility] [address] [id number] [place] [address] Dec, [facility] [place] [facility] [address] [id number] [place] [address] Dec, [facility] [place] [facility] [address] [id number] [place] [address] Dec, [facility] [place] [facility] [address] [facility] [id number] [place] [address] Dec, [facility] [place] [facility] [address] [id number] [place] [address] Dec, [facility] [place] [facility] [address] [id number] [place] [address] Dec, [facility] [place] [facility] [address] [id number] [place] [address] Nov, [facility] [place] [facility] [address] [id number] [place] [address] Nov, [facility] [place] [facility] [address] [id number] [place] [address] Nov, [facility] [place] [facility] [address] [id number] [place] [address] Nov, [facility] [place] [facility] [address] [id number] [place] [address] Nov, [facility] [place] [facility] [address] [id number] [place] [address] Nov, [facility] [place] [facility] [address] [id number] [place] [address] Nov, [facility] [place] [facility] [address] [id number] [place] [address] Nov, [facility] [place] [facility] [address] [id number] [place] [address] Nov, [facility] [place] [facility] [address] [id number] [place] [address] Nov, [facility] [place] [facility] [address] [id number] [place] [address] Nov, [facility] [place] [facility] [address] [id number] [place] [address]99 Oct, [facility] [place] [facility] [address] [id number] [place] [address]244 Oct, [facility] [place] [facility] [address] [id number] [place] [address] Oct, [facility] [place] [facility] [address] [id number] [place] [address] Oct, [facility] [place] [facility] [address] [id number] [place] [address] Sep, [facility] [place] [facility] [address] [id number] [place] [address] Sep, [facility] [place] [facility] [address] [id number] [place] [address]- 6984 Sep, [facility] [place] [facility] [address] [id number] [place] [address] Sep, [facility] [place] [facility] [address] [id number] [place] [address] Aug, [facility] [place] [facility] [address] [id number] [place] [address] Aug, [facility] [place] [facility] [address] [id number] [place] [address] Aug, [facility] [place] [facility] [address] [id number] [place] [address] Aug, [facility] [place] [facility] [address] [id number] [place] [address] 6[address] Aug, [facility] [place] [facility] [address] [id number] [place] [address] 130[address] Aug, [facility] [place] [facility] [address] [id number] [place] [address] Aug, [facility] [place] [facility] [address] [id number] [place] [address] Aug, [facility] [place] [facility] [address] [id number] [place] [address] Jul, [facility] [place] [facility] [address] [id number] [place] [address] Jul, [facility] [place] [facility] [address] [id number] [place] [address]47 26 Sep, 2012 [facility] [address] [id number] [place] [address] 2546 24 Sep, 2012 [facility] [place] [facility] [address] [id number] [place] [address] 2546 24 Sep, 2012 [facility] [address] [id number] [place] [address] 2546 23 Sep, 2012 [facility] [address] [id number] [place] [address] 2542 19 Sep, 2012 [facility] [address] [id number] [place] [address] 18 Sep, 2012 [facility] [address] [id number] [place] [address] 39[address] 17 Jul, 2012 [facility] [address] [id number] [place] [address]- [address]44 16 Jul, 2012 [facility] [address] [id number] [place] [address]- [address] 13 Jul, 2012 [facility] [address] [id number] [place] [address] 2543 13 Jul, 2012 [facility] [address] [id number] [place] [address]- [address]49 12 Jul, 2012 [facility] [address] [id number] [place] [address] 2544 11 Jul, 2012 [facility] [address] [id number] [place] [address] 2543 04 Jul, 2012 [facility] [place] [facility] [address] [id number] [place] [address] 2542 30 Jun, 2013 [facility] [place] [facility] [address] [id number] [place] [address]- 254 Jun, [facility] [place] [facility] [address] [id number] [place] [address] Jun, [facility] [address] [id number] [place] [address] May, [facility] [place] [facility] [address] [id number] [place] [address] 9[address] May, [facility] [place] [facility] [address] [id number] [place] [address] 9960 May, [facility] [place] [facility] [address] [id number] [place] [address] 2838 May, [facility] [place] [facility] [address] [id number] [place] [address] 6171 Apr, [facility] [place] [facility] [address] [id number] [place] [address] 8266 Apr, [facility] [place] [facility] [address] [id number] [place] [address] 0447 Apr, [facility] [place] [facility] [address] [id number] [place] [address] 5251 Apr, [facility] [place] [facility] [address] [id number] [place] [address] 8491 March, [facility] [place] [facility] [address] [id number] [place] [address] 5954 March, [facility] [place] [facility] [address] [id number] [place] [address] 3673 March, [facility] [place] [facility] [address] [id number] [place] [address] 7311 Feb, [facility] [place] [facility] [address] [id number] [place] [address]- 0251 Feb, [facility] [place] [facility] [address] [id number] [place] [address]- 8406 Jan, [facility] [place] [facility] [address] [id number] [place] [address]- 0288 Jan, [facility] [place] [facility] [address] [id number] [place] [address] 3515 Jan, [facility] [address] [id number] [place] [address]- 0524 Jan, [facility] [address] [id number] [place] [address] 7466 Jan, [facility] [address] [id number] [place] [address]- 3556 Dec, [facility] [address] [id number] [place] [address]- 4231 Dec, [facility] [address] [id number] [place] [address]- 8285 Dec, [facility] [address] [id number] [place] [address]- 3436 Dec, [facility] [address] [id number] [place] [address] 1600 Dec, [facility] [address] [id number] [place] [address]- 3797 Dec, [facility] [address] [id number] [place] [address]- 9199 Dec, [facility] [address] [id number] [place] [address]- 5301 Dec, [facility] [address] [id number] [place] [address]- 4641 Nov, [facility] [address] [id number] [place] [address] 2548 Nov, [facility] [place] [facility] [address] [id number] [place] [address]- 0542 Nov, [facility] [place] [facility] [address] [id number] [place] [address]- 9996 Nov, [facility] [address] [id number] [place] [address]- 8291 Nov, [facility] [place] [facility] [address] [id number] [place] [address]- 4054 Nov, [facility] [place] [facility] [address] [id number] [place] [address]- 9142 Nov, [facility] [place] [facility] [address] [id number] [place] [address]- 6941 Oct, [facility] [place] [facility] [address] [id number] [place] [address]- 9081 Oct, [facility] [place] [facility] [address] [id number] [place] [address]- 7493 Oct, [facility] [place] [facility] [address] [id number] [place] [address]- 3885 Oct, [facility] [place] [facility] [address] [id number] [place] [address]- 4773 Oct, [facility] [place] [facility] [address] [id number] [place] [address]- 6571 Oct, [facility] [place] [facility] [address] [id number] [place] [address]- 7333 Oct, [facility] [place] [facility] [address] [id number] [place] [address]- 9456 Oct, [facility] [place] [facility] [address] [id number] [place] [address]- 8468 Sep, [facility] [place] [facility] [address] [id number] [place] [address]- 5270 Sep, [facility] [place] [facility] [address] [id number] [place] [address]- 8588 Sep, [facility] [place] [facility] [address] [id number] [place] [address]- 5846 Sep, [facility] [place] [facility] [address] [id number] [place] [address]- 5419 Sep, [facility] [place] [facility] [address] [id number] [place] [address]- 9144 Sep, [facility] [place] [facility] [address] [id number] [place] [address]- 3030 Sep, [facility] [place] [facility] [address] [id number] [place] [address]- 3154 Sep, [facility] [place] [facility] [address] [id number] [place] [address]- 4392 Sep, [facility] [place] [facility] [address] [id number] [place] [address]- 3979 Sep, [facility] [place] [facility] [address] [id number] [place] [address]- 7174 Sep, [facility] [place] [facility] [address] [id number] [place] [address]- 8604 Sep, [facility] [place] [facility] [address] [id number] [place] [address]- 9619 Sep, [facility] [place] [facility] [address] [id number] [place] [address]- 3249 Sep, [facility] [place] [facility] [address] [id number] [place] [address]- 3490 Sep, [facility] [place] [facility] [address] [facility] [id number] [place] [address]- 7715 Sep, [facility] [place] [facility] [address] [id number] [place] [address]- 9225 Sep, [facility] [place] [facility] [address] [id number] [place] [address]- 1364 Sep, [facility] [place] [facility] [address] [id number] [place] [address]- 3035 Sep, [facility] [place] [facility] [address] [id number] [place] [address]- 4075 Sep, [facility] [place] [facility] [address] [id number] [place] [address]- 2596 Aug, [facility] [place] [facility] [address] [id number] [place] [address]- 7579 31 Aug, 2011 [facility] [place] [facility] [address] [id number] [place] [address]- 2325 29 Aug, 2011 [facility] [place] [facility] [address] [id number] [place] [address]- 0911 27 Aug, 2011 [facility] [place] [facility] [address] [id number] [place] [address]- 1802 27 Aug, 2012 [facility] [place] [facility] [address] [id number] [place] [address]- 2352 18 Aug, 2012 [facility] [place] [facility] [address] [id number] [place] [address]- 3459 18 Aug, 2012 [facility] [place] [facility] [address] [id number] [place] [address]- 0687 17 Aug, 2012 [facility] [place] [facility] [address] [id number] [place] [address]- 4572 16 Aug, 2012 [facility] [place] [facility] [address] [id number] [place] [address]- 8115 16 Aug, 2012 [facility] [place] [facility] [address] [id number] [place] [address]- 1685 15 Aug, 2012 [facility] [place] [facility] [address] [id number] [place] [address]- 2894 09 Aug, 2012 [facility] [place] [facility] [address] [id number] [place] [address]- 6865 05 Aug, 2012 [facility] [place] [facility] [address] [id number] [place] [address]- 2415 05 Aug, 2012 [facility] [place] [facility] [address] [id number] [place] 2178 04 Aug, 2012 [facility] [place] [facility] [address] [id number] [place] [address]- 3093 14 Jul, 2012 [facility] [place] [facility] [address] [id number] [place] [address]- 9662 Jul, [facility] [address] [id number] [place] [address]- 2998 Jun, [facility] [place] [facility] [address] [id number] [place] [address]- 5006 Jun, [facility] [place] [facility] [address] [id number] [place] [address]- 8590 May, [facility] [place] [facility] [address] [id number] [place] [address]- 8175 May, [facility] [place] [facility] [address] [id number] [place] [address]- 4039 May, [facility] [place] [facility] [address] [id number] [place] [address]- 9146 May, [facility] [place] [facility] [address] [id number] [place] [address]- 5853 May, [facility] [place] [facility] [address] [id number] [place] [address]- 0206 May, [facility] [place] [facility] [address] [id number] [place] [address]- 7492 Apr, [facility] [place] [facility] [address] [id number] [place] [address]- 5219 Apr, [facility] [place] [facility] [address] [id number] [place] [address]- 7546 March, [facility] [place] [facility] [address] [id number] [place] [address]- 0306 March, [facility] [place] [facility] [address] [id number] [place] [address]- 5046 March, [facility] [place] [facility] [address] [id number] [place] [address]- 4536 March, [facility] [place] [facility] [address] [id number] [place] [address]- 1828 March, [facility] [place] [facility] [address] [id number] [place] [address]- 1807 March, [facility] [address] [id number] [place] [address]- 4996 Feb, [facility] [place] [facility] [address] [id number] [place] [address]- 6546 Feb, [facility] [address] [id number] [place] [address]- 6786 Feb, [facility] [place] [facility] [address] [id number] [place] [address]- 8877 Feb, [facility] [address] [id number] [place] [address]- 2949 Feb, [facility] [address] [id number] [place] [address]- 7810 Feb, [facility] [address] [id number] [place] [address]- 4668 Feb, [facility] [address] [id number] [place] [address]- 4257 Feb, [facility] [place] [facility] [address] [id number] [place] [address]- 4788 Feb, [facility] [address] [id number] [place] [address]- 5509 Jan, [facility] [place] [facility] [address] [id number] [place] [address]- 1811 Jan, [facility] [place] [facility] [address] [id number] [place] [address]- 3407 Jan, [facility] [place] [facility] [address] [id number] [place] [address]- 3973 Jan, [facility] [place] [facility] [address] [id number] [place] [address]- 8886 Jan, [facility] [place] [facility] [address] [id number] [place] [address]- 2840 Jan, [facility] [place] [facility] [address] [id number] [place] [address]- 2271 14 Jan, 2012 [facility] [place] [facility] [address] [id number] [place] [address]- 5445 Jan, [facility] [place] [facility] [address] [id number] [place] [address]- 0696 09 Jan, 2012 [facility] [place] [facility] [address] [id number] [place] [address]- 0041 08 Jan, 2012 [facility] [place] [facility] [address] [id number] [place] [address]- 6153 07 Jan, 2012 [facility] [place] [facility] [address] [id number] [place] [address]- 9283 06 Jan, 2012 [facility] [place] [facility] [address] [facility] [id number] [place] [address]- 8371 Jan, [facility] [place] [facility] [address] [id number] [place] [address]- 8927 Jan, [facility] [place] [facility] [address] [id number] [place] [address]- 2917 Dec, [facility] [place] [facility] [address] [id number] [place] [address]- 3548 27 Dec, 2011 [facility] [place] [place] [facility] [address] [facility] [id number] [place] [address]- 1416 Dec, [facility] [place] [facility] [address] [id number] [place] [address]- 5043 23 Dec, 2011 [facility] [place] [facility] [address] [id number] [place] [address]- 5052 16 Dec, 2011 [facility] [place] [facility] [address] [id number] [place] [address]- 0656 08 Dec, 2011 [facility] [place] [facility] [address] [facility] [id number] [place] [address]- 3021 08 Dec, 2011 [facility] [place] [facility] [address] [id number] [place] [address]- 0076 07 Dec, 2011 [facility] [address] [id number] [place] [address]- 4356 Dec, [facility] [address] [id number] [place] 5319 Nov, [facility] [address] [id number] [place] [address]- 8420 Nov, [facility] [address] [id number] [place] [address]- 9192 Nov, [facility] [address] [id number] [place] [address]- 4896 Nov, [facility] [address] [id number] [place] [address]- 1657 Oct, [facility] [address] [id number] [place] [address]- 3190 Oct, [facility] [address] [id number] [place] [address]- 8224 Oct, [facility] [address] [id number] [place] [address]- 7209 Oct, [facility] [address] [id number] [place] [address]- 0720 Oct, [facility] [address] [id number] [place] [address]- 3766 Oct, [facility] [address] [id number] [place] [address]- 5644 Oct, [facility] [address] [id number] [place] [address]- 7223 Sep, [facility] [address] [id number] [place] [address]- 8532 Sep, [facility] [address] [id number] [place] [address]- 8295 Sep, [facility] [place] [facility] [address] [id number] [place] [address]- 8143 Sep, [facility] [place] [facility] [address] [id number] [place] [address]- 8078 Sep, [facility] [place] [facility] [address] [id number] [place] [address]- 3686 Sep, [facility] [place] [facility] [address] [id number] [place] [address]- 7984 Sep, [facility] [place] [facility] [address] [id number] [place] 6389 Sep, [facility] [place] [facility] [address] [id number] [place] [address]- 9947 Sep, [facility] [place] [facility] [address] [id number] [place] [address]- 0004 Aug, [facility] [place] [facility] [address] [id number] [place] [address]- 3805 Aug, [facility] [place] [facility] [address] [id number] [place] [address]- 1654 Aug, [facility] [place] [facility] [address] [id number] [place] [address]- 4670 May, [facility] [place] [facility] [address] [id number] [place] [address]- 4828 Nov, [facility] [place] [facility] [address] [id number] [place] [address]- 2302 Oct, [facility] [place] [facility] [address] [id number] [place] [address]- 4209 Oct, [facility] [place] [facility] [address] [id number] [place] [address]- 7698 Oct, [facility] [place] [facility] [address] [id number] [place] [address]- 1039 Oct, [facility] [place] [facility] [address] [id number] [place] [address]- 0585 Oct, [facility] [address] [facility] [id number] [place] [address]- 8941 03 Sep, 2010 [facility] [address] [facility] [id number] [place] [address]- 8886 02 Sep, 2010 [facility] [id number] [place] [address]- 1416 14 Jul, 2010 [facility] [address] [facility] [id number] [place] [address]- 1897 31 Oct, 2009 [facility] [address] [facility] [id number] [place] [address]- 7621 Oct, [facility] [address] [facility] [id number] [place] [address]- 8617 Oct, [facility] [id number] [address]- 1627 Oct, [facility] [id number] [address]- 0552 30 Sep, 2009 [facility] [id number] [address]- 5702 Sep, [facility] [id number] [address]- 0210 Sep, [facility] [id number] [address]- 7421 Sep, [facility] [id number] [address]- 1598 Sep, [facility] [id number] [address]- 1138 11 Jul, 2009 [facility] [address] [facility] [id number] [place] [address]- 0665 Apr, [facility] [id number] [address]- 6330 12 Dec, 2008 IMMUNIZATIONS No Known Immunizations SOCIAL HISTORY Never Assessed REASON FOR VISIT requesting scope PLAN OF CARE VITAL SIGNS MEDICATIONS Unknown Medications RESULTS No Results PROCEDURES No Known procedures INSTRUCTIONS MEDICATIONS ADMINISTERED No Known Medications MEDICAL (GENERAL) HISTORY Type Description Date Medical History hypertension Medical History hyperlipidemia Medical History diabetes type II Medical History COPD Medical History asthma Surgical History hysterectomy Surgical History arthritis surgery Hospitalization History surgeries
--- OUTSIDE RECORDS SUMMARY | 2018-11-26 16:17 | XMS REPORT ---
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 Name Role Phone KING FISHMAN Unavailable PROBLEMS Type Condition ICD9-CM Code UNX51-UQ Code Onset Dates Condition Status SNOMED Code Problem Essential hypertension I10 Active 68658149 Problem Lumbago with sciatica, left side M54.42 Active 886296301 Problem Acquired hypothyroidism E03.9 Active 298673099 Problem Prediabetes R73.03 Active 703058698 Problem Reactive depression F32.9 Active 37421787 Problem Mixed hyperlipidemia E78.2 Active 485119068 Problem Pain in right ankle and joints of right foot M25.571 Active [id number] Problem Chronic obstructive pulmonary disease, unspecified COPD type J44.9 Active 38467257 Problem Gastroesophageal reflux disease, esophagitis presence not specified K21.9 Active 037087847 Problem Lumbago with sciatica, right side M54.41 Active [id number] Problem Cigarette nicotine dependence without complication F17.210 Active 27362012 Problem Other chronic pain G89.29 Active [id number] ALLERGIES No Information ENCOUNTERS Encounter Location Date Diagnosis [facility] [id number] [address] Jul, [facility] [id number], [place] [address] Jun, [facility] [id number] [place] [address] 10863- 0417 May, [facility] [id number] [place] [address] 99216- 4999 May, [facility] [address] [id number], [place] [address] May, [place] [id number], [place] [address] Apr, [facility] [id number] [place] [address] 23909- 7722 Apr, [facility] [id number] [place] [address] 91562- 6295 Apr, [facility] [id number] [place] [address] 55487- 0872 Apr, [facility] [id number] [place] [address] 19738- 9728 Apr, Pain in right ankle and joints of right foot M25.571 [address] [id number] [place] [address] 72433- 0978 Apr, [place] [id number] [place] [address] 23909- 1917 Apr, Bronchitis J40 ; Pain in right ankle and joints of right foot M25.571 ; Other chronic pain G89.29 ; Prediabetes R73.03 ; Chronic obstructive pulmonary disease, unspecified COPD type J44.9 and Cigarette nicotine dependence without complication F17.210 [facility] [id number] [place] [address] 69446 -5352 Apr, Seasonal allergic rhinitis, unspecified trigger J30.2 [facility] [id number] [place] [address] 92838- 0515 Apr, Onychomycosis B35.1 ; Onychocryptosis L60.0 and DM neuro manif type II E11.49 [facility] [id number] [place] [address] 76092- 6546 Apr, Reactive depression F32.9 ; Thoracic myofascial strain, initial encounter S29.019A and Leg cramps R25.2 [facility] [address] [place] [address] 39221- 0838 March, [facility] [address] [address]- [address] March, Type 2 diabetes mellitus with hyperglycemia E11.65 [place] [address] [address]- [address] March, Reactive depression F32.[address] [address]- [address]234 March, Pain in thoracic spine M54.6 and Other chronic pain G89.29 [place] [address] [address]- 1914 Feb, [address] [address]- 2815 Jan, Reactive depression F32.9 ; Essential hypertension I10 ; Gastroesophageal reflux disease, esophagitis presence not specified K21.9 ; Lumbago with sciatica, left side M54.42 and Lumbago with sciatica, right side M54.[address] [address]- 1425 Jan, Reactive depression F32.9 and Pharyngoesophageal dysphagia R13.[address] 0[address]95- 0920 Jan, [address] 8[address]20- 1389 Jan, Encounter for immunization Z23 [address] [address]- 0516 Jan, Onychomycosis B35.1 and DM neuro manif type II E11.[address] [address]- 4944 Jan, [address] 40544- 9146 Jan, Prediabetes R73.[address] 64309- 2053 Dec, [facility] [id number] [place] [address] 66281- 5856 Dec, Essential hypertension I10 ; Mixed hyperlipidemia E78.2 ; Acquired hypothyroidism E03.9 ; Reactive depression F32.9 and Prediabetes R73.03 [facility] [id number] [place] [address] 70525- 1127 Dec, [facility] [address] 37715- 7594 Dec, [facility] [id number] [place] [address] 12093- 3259 Dec, DM neuro manif type II E11.49 [facility] [id number] [place] [address] 53012 -5975 Dec, Bruise T14.8XXA ; Type 2 diabetes mellitus with hyperglycemia E11.65 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 [place] [id number] [place] [address] 83524- 1020 Oct, [place] [address] 38194- 7151 March, Onychomycosis B35.1 and DM neuro manif type II E11.49 [place] [id number] [place] [address] 37791- 0287 Jun, [place] [id number] [place] [address] 73701- 3331 Jun, [place] [id number] [place] [address] 10284- 9850 Jun, COPD with acute exacerbation 491.21 [place] [id number] [place] [address] 61436- 0047 Apr, [place] [id number] [place] [address] 94209- 6509 Feb, [place] [address] [facility] [id number] [place] [address]- 3478 13 Feb, 2015 [facility] [place] [facility] [address] [id number] [place] [address]- 4452 26 Jan, 2015 [facility] [place] [facility] [address] [id number] [place] [address]- 6936 Jan, [facility] [place] [facility] [address] [id number] [place] [address]- 0345 Jan, [facility] [place] [facility] [address] [id number] [place] [address]- 9128 Jan, [facility] [place] [facility] [address] [id number] [place] [address]- 2436 24 Jan, 2015 [facility] [place] [facility] [address] [id number] [place] [address]- 6658 Jan, [facility] [place] [facility] [address] [id number] [place] [address]- 4524 Jan, [facility] [place] [facility] [address] [id number] [place] [address]- 5336 Jan, [facility] [place] [facility] [address] [id number] [place] [address]- 1841 23 Jan, 2015 [facility] [place] [facility] [address] [id number] [place] [address]- 4329 19 Jan, 2015 [facility] [place] [facility] [address] [id number] [place] [address]- 5231 19 Jan, 2015 [facility] [place] [facility] [address] [id number] [place] [address]- 6829 18 Jan, 2015 [facility] [place] [facility] [address] [id number] [place] [address]- 0382 18 Jan, 2015 [facility] [place] [facility] [address] [id number] [place] [address]- 0526 16 Jan, 2015 [facility] [place] [facility] [address] [id number] [place] [address]- 6572 16 Jan, 2015 [facility] [place] [facility] [address] [id number] [place] [address]- 8967 16 Jan, 2015 [facility] [place] [facility] [address] [id number] [place] [address]- 8886 16 Jan, 2015 [facility] [place] [facility] [address] [id number] [place] [address]- 7085 15 Jan, 2015 [facility] [place] [facility] [address] [id number] [place] [address]- 7797 13 Jan, 2015 [facility] [place] [facility] [address] [id number] [place] [address]- 1535 13 Jan, 2015 [facility] [place] [facility] [address] [id number] [place] [address]- 9027 13 Jan, 2015 [facility] [place] [facility] [address] [id number] [place] [address]- 7311 13 Jan, 2015 [facility] [place] [facility] [address] [id number] [place] [address]- 8147 12 Jan, 2015 [facility] [place] [facility] [address] [id number] [place] [address]- 8404 04 Jan, 2015 [facility] [place] [facility] [address] [id number] [place] [address]- 5581 04 Jan, 2015 [facility] [place] [facility] [address] [id number] [place] [address]- 8695 24 Dec, 2014 [facility] [place] [facility] [address] [id number] [address]- 7673 Dec, 2014 [facility] [place] [facility] [address] [id number] [place] [address]- 4282 Dec, 2014 [facility] [place] [facility] [address] [id number] [place] [address]- 7176 Dec, 2014 [facility] [place] [facility] [address] [id number] [place] [address]- 0365 Dec, [facility] [place] [facility] [address] [id number] [place] [address]- 4775 23 Dec, 2014 [facility] [place] [facility] [address] [id number] [place] [address]- 8956 Dec, 2014 [facility] [place] [facility] [address] [id number] [place] [address]- 5196 20 Dec, 2014 [facility] [place] [facility] [address] [id number] [place] [address]- 1616 Dec, 2014 [facility] [place] [facility] [address] [id number] [place] [address]- 6314 Dec, 2014 [facility] [place] [facility] [address] [id number] [place] [address]- 2983 Dec, 2014 [facility] [place] [facility] [address] [id number] [place] [address]- 7316 Dec, 2014 [facility] [place] [facility] [address] [id number] [place] [address]- 6778 Nov, [facility] [place] [facility] [address] [id number] [place] [address]- 2793 Nov, [facility] [place] [facility] [address] [id number] [place] [address]- 8688 Nov, [facility] [place] [facility] [address] [id number] [place] [address]- 7023 Nov, [facility] [place] [facility] [address] [id number] [place] [address]- 6588 Nov, [facility] [place] [facility] [address] [id number] [place] [address]- 5499 Nov, [facility] [place] [facility] [address] [id number] [place] [address]- 2540 Nov, [facility] [place] [facility] [address] [id number] [place] [address]- 1356 Nov, [facility] [place] [facility] [address] [id number] [place] [address]- 8111 Nov, [facility] [place] [facility] [address] [id number] [place] [address]- 0314 Nov, [facility] [place] [facility] [address] [id number] [place] [address]- 0063 Nov, [facility] [place] [facility] [address] [id number] [place] [address]- 0213 Nov, [facility] [place] [facility] [address] [id number] [place]35 Oct, [facility] [place] [facility] [address] [id number] [place] [address]- 2668 Oct, [facility] [place] [facility] [address] [id number] [place] [address]- 9040 Oct, [facility] [place] [facility] [address] [id number] [place] [address]- 6192 Oct, [facility] [place] [facility] [address] [id number] [place] [address]- 2212 Oct, [facility] [place] [facility] [address] [id number] [place] [address]- 9935 Oct, [facility] [place] [facility] [address] [id number] [place] [address]- 7233 Oct, [facility] [place] [facility] [address] [id number] [place] [address]- 2760 Oct, [facility] [place] [facility] [address] [id number] [place] [address]- 9749 Oct, [facility] [place] [facility] [address] [id number] [place] [address]- 8943 Oct, [facility] [place] [facility] [address] [id number] [place] [address]- 1043 16 Oct, 2014 [facility] [place] [facility] [address] [id number] [place] 5880 Oct, [facility] [place] [facility] [address] [id number] [place] [address]- 2275 15 Oct, 2014 [facility] [place] [facility] [address] [id number] [place] [address]- 1055 Oct, [facility] [place] [facility] [address] [id number] [place] [address]- 5038 Oct, [facility] [place] [facility] [address] [id number] [place] [address]- 6450 Sep, [facility] [place] [facility] [address] [id number] [place] [address]- 3953 Sep, [facility] [place] [facility] [address] [id number] [place] [address]- 8899 Sep, [facility] [place] [facility] [address] [id number] [place] [address]- 3630 Sep, [facility] [place] [facility] [address] [id number] [place] [address]- 5153 Aug, [facility] [place] [facility] [address] [id number] [place] [address]- 6421 Aug, [facility] [place] [facility] [address] [id number] [place] [address]- 5559 Aug, [facility] [place] [facility] [address] [facility] [id number] [place] [address]- 6536 Aug, [facility] [place] [facility] [address] [id number] [place] [address]- 3031 Aug, [facility] [place] [facility] [address] [id number] [place] [address]- 9879 Aug, [facility] [place] [facility] [address] [id number] [place] [address]- 6324 Jul, [facility] [place] [facility] [address] [id number] [place] [address]- 9188 29 Jul, 2014 [facility] [place] [facility] [address] [id number] [place] [address]- 5632 15 Jul, 2014 [facility] [place] [facility] [address] [id number] [place] [address]- 9117 Jul, [facility] [place] [facility] [address] [id number] [place] [address]- 1420 Jul, [facility] [place] [facility] [address] [id number] [place] [address]- 1141 Jul, [facility] [place] [facility] [address] [id number] [place] [address]- 8283 Jun, [facility] [place] [facility] [address] [id number] [place] [address]- 7776 Jun, [facility] [place] [facility] [address] [id number] [place] [address]- 9829 Jun, [facility] [place] [facility] [address] [id number] [place] [address]- 9176 Jun, [facility] [place] [facility] [address] [id number] [place] [address]- 2887 Jun, [facility] [place] [facility] [address] [id number] [place] [address]- 2622 Jun, [facility] [place] [facility] [address] [id number] [place] [address]- 2075 Jun, [facility] [place] [facility] [address] [id number] [place] [address]- 3303 May, [facility] [place] [facility] [address] [id number] [place] [address]- 8244 May, [facility] [place] [facility] [address] [id number] [place] [address]- 3609 May, [facility] [place] [facility] [address] [id number] [place] [address]- 3340 May, [facility] [place] [facility] [address] [id number] [place] 4889 May, [facility] [place] [facility] [address] [id number] [place] [address]- 0079 May, 2013 [facility] [place] [facility] [address] [id number] [place] [address]- 9624 May, 2013 [facility] [place] [facility] [address] [id number] [place] [address]- 7684 May, [facility] [place] [facility] [address] [id number] [place] [address]- 6610 May, 2013 [facility] [place] [facility] [address] [id number] [place] [address]- 9262 May, 2013 [facility] [place] [facility] [address] [id number] [place] [address]- 8558 May, [facility] [place] [facility] [address] [id number] [place] [address]- 0192 May, [facility] [place] [facility] [address] [id number] [place] [address]- 8219 Apr, [facility] [place] [facility] [address] [id number] [place] [address]- 0375 Apr, [facility] [place] [facility] [address] [id number] [place] [address]- 6839 Apr, [facility] [place] [facility] [address] [id number] [place] [address]- 1658 Apr, [facility] [place] [facility] [address] [id number] [place] [address]- 6505 Apr, [facility] [place] [facility] [address] [id number] [place] [address]- 4421 Apr, [facility] [place] [facility] [address] [id number] [place] [address]- 6829 Apr, [facility] [place] [facility] [address] [id number] [place] [address]- 9844 Apr, [facility] [place] [facility] [address] [id number] [place] [address]- 5074 Apr, [facility] [place] [facility] [address] [id number] [place] [address]- 2202 Apr, [facility] [place] [facility] [address] [id number] [place] [address]- 9834 March, [facility] [place] [facility] [address] [id number] [place] [address]- 5821 March, [facility] [place] [facility] [address] [id number] [place] [address]- 7181 March, [facility] [place] [facility] [address] [id number] [place] [address]- 7752 March, [facility] [place] [facility] [address] [id number] [place] [address]- 9471 March, [facility] [place] [facility] [address] [id number] [place] [address]- 5613 March, [facility] [place] [facility] [address] [id number] [place] [address]- 9276 Feb, [facility] [place] [facility] [address] [id number] [place] [address]- 6379 Feb, [facility] [place] [facility] [address] [id number] [place] [address]- 2924 Feb, [facility] [place] [facility] [address] [id number] [place] [address]- 5368 Feb, [facility] [place] [facility] [address] [id number] [place] [address]- 1065 Feb, [facility] [place] [facility] [address] [id number] [place] [address]- 5564 Feb, [facility] [place] [facility] [address] [id number] [place] [address]- 2122 Feb, [facility] [place] [facility] [address] [id number] [place] [address]- 6291 Feb, [facility] [place] [facility] [address] [id number] [place] [address]- 8452 Feb, [facility] [place] [facility] [address] [id number] [place] [address]- 7928 Feb, [facility] [place] [facility] [address] [id number] [place] [address]- 3219 Jan, [facility] [place] [facility] [address] [id number] [place] [address]- 8104 Jan, [facility] [place] [facility] [address] [id number] [place] [address]- 6758 Jan, [facility] [place] [facility] [address] [id number] [place] [address]- 0398 Jan, [facility] [place] [facility] [address] [id number] [place] [address]- 3486 Jan, [facility] [place] [facility] [address] [id number] [place] [address]- 8057 Jan, [facility] [place] [facility] [address] [id number] [place] [address]- 6886 Jan, [facility] [place] [facility] [address] [id number] [place] [address]- 3069 Jan, [facility] [place] [facility] [address] [id number] [place] [address]- 7037 Dec, [facility] [place] [facility] [address] [id number] [place] [address]- 7037 Dec, [facility] [place] [facility] [address] [id number] [place] [address]- 4305 Dec, [facility] [place] [facility] [address] [id number] [place] [address]- 3187 Dec, [facility] [place] [facility] [address] [id number] [place] [address]- 4355 Dec, [facility] [place] [facility] [address] [id number] [place] [address]- 0767 Dec, [facility] [place] [facility] [address] [id number] [place] [address]- 0669 Dec, [facility] [address] [id number] [place] [address]- 8819 Dec, [facility] [place] [facility] [address] [id number] [place] [address]- 8116 Nov, [facility] [address] [id number] [place] [address]- 4894 Nov, [facility] [place] [facility] [address] [id number] [place] [address]- 4449 Nov, [facility] [address] [id number] [place] [address]- 6256 Nov, [facility] [place] [facility] [address] [id number] [place] [address] Nov, [facility] [address] [id number] [place] [address] Nov, [facility] [address] [id number] [place] [address] Nov, [facility] [place] [facility] [address] [id number] [place] [address] Nov, [facility] [address] [id number] [place] [address] Nov, [facility] [place] [facility] [address] [id number] [place] [address] Nov, [facility] [place] [facility] [address] [id number] [place] [address] Nov, [facility] [place] [facility] [address] [id number] [place] [address] Oct, [facility] [place] [facility] [address] [id number] [place] [address] Oct, [facility] [place] [facility] [address] [id number] [place] [address] Oct, [facility] [place] [facility] [address] [id number] [place] [address] Oct, [facility] [place] [facility] [address] [id number] [place] [address] Sep, [facility] [place] [facility] [address] [id number] [place] [address] Sep, [facility] [place] [facility] [address] [id number] [place] [address] Sep, [facility] [place] [facility] [address] [id number] [place] [address] Sep, [facility] [place] [facility] [address] [id number] [place] [address] Aug, [facility] [place] [facility] [address] [id number] [place] [address] Aug, [facility] [place] [facility] [address] [id number], [place] [address] Aug, [facility] [place] [facility] [address] [id number] [place] [address] Aug, [facility] [place] [facility] [address] [id number], [place] [address] Aug, [facility] [place] [facility] [address] [id number], [place] [address] Aug, [facility] [place] [facility] [address] [id number], [place] [address] Aug, [facility] [place] [facility] [address] [id number] [place] [address] Aug, [facility] [place] [facility] [address] [id number], [place] [address] Jul, [facility] [place] [facility] [address] [id number] [place] [address] Jul, [facility] [place] [facility] [address] [id number] [place] [address] 26 Sep, 2012 [facility] [address] [id number] [place] [address] 2546 24 Sep, 2012 [facility] [place] [facility] [address] [id number] [place] [address] 2546 24 Sep, 2012 [facility] [place] [facility] [address] [id number] [place] [address] 2546 23 Sep, 2012 [facility] [place] [facility] [address] [id number] [place] [address] 2546 19 Sep, 2012 [facility] [place] [facility] [address] [id number] [place] [address] 18 Sep, 2012 [facility] [place] [facility] [address] [id number] [place] [address] 17 Jul, 2012 [facility] [place] [facility] [address] [id number] [place] [address] 16 Jul, 2012 [facility] [place] [facility] [address] [id number] [place] [address] 2549 13 Jul, 2012 [facility] [place] [facility] [address] [id number] [place] [address] 13 Jul, 2012 [facility] [place] [facility] [address] [id number] [place] [address] 12 Jul, 2012 [facility] [place] [facility] [address] [id number] [place] [address] 2544 11 Jul, 2012 [facility] [place] [facility] [address] [id number] [place] [address] 04 Jul, 2012 [facility] [place] [facility] [address] [id number] [place] [address] 30 Jun, 2013 [facility] [place] [facility] [address] [id number] [place] [address] Jun, [facility] [place] [facility] [address] [id number] [place] [address] Jun, [facility] [place] [facility] [address] [id number] [place] [address] May, [facility] [place] [facility] [address] [id number] [place] [address] May, [facility] [place] [facility] [address] [id number] [place] [address] May, [facility] [place] [facility] [address] [id number] [place] [address] May, [facility] [place] [facility] [address] [id number] [place] [address] Apr, [facility] [place] [facility] [address] [id number] [place] [address] Apr, [facility] [address] [id number] [place] [address] Apr, [facility] [place] [facility] [address] [id number] [place] [address] Apr, [facility] [place] [facility] [address] [id number] [place] [address] March, [facility] [place] [facility] [address] [id number] [place] [address] March, [facility] [facility] [place] [facility] [address] [id number] [place] [address] March, [facility] [place] [facility] [address] [id number] [place] [address] Feb, [facility] [place] [facility] [address] [id number] [place] [address] Feb, [facility] [place] [facility] [address] [id number] [place] [address] Jan, [facility] [place] [facility] [address] [id number] [place] [address] Jan, [facility] [place] [facility] [address] [id number] [place] [address] 9[address] Jan, [facility] [address] [id number] [place] [address] Jan, [facility] [address] [id number] [place] [address]- 150[address] Jan, [facility] [address] [facility] [id number] [place] [address] 275[address] Dec, [facility] [address] [id number] [place] [address] 5[address] Dec, [facility] [address] [id number] [place] [address] 1073 Dec, [facility] [address] [id number] [place] [address] 7541 Dec, [facility] [address] [facility] [id number] [place] [address] 4470 Dec, [facility] [address] [id number] [place] [address] 1374 Dec, [facility] [address] [facility] [id number] [place] [address]- 2887 Dec, [facility] [address] [facility] [id number] [place] [address]- 0965 Dec, [facility] [address] [facility] [id number] [place] [address] 6917 Nov, [facility] [address] [id number] [place] [address]- 1579 Nov, [facility] [place] [facility] [address] [id number] [place] [address]- 0214 Nov, [facility] [place] [facility] [address] [facility] [id number] [place] [address] 4740 Nov, [facility] [address] [facility] [id number], [place] [address] Nov, [facility] [address] [id number] [place] [address]- 4160 Nov, [facility] [place] [facility] [address] [id number] [place] [address]- 0295 Nov, [facility] [place] [facility] [address] [id number] [place] [address]- 3306 Oct, [facility] [place] [facility] [address] [id number] [place] [address]- 4973 Oct, [facility] [place] [facility] [address] [id number] [place] [address]- 5423 Oct, [facility] [place] [facility] [address] [id number] [place] [address]- 7873 Oct, [facility] [place] [facility] [address] [id number] [place] [address]- 1750 Oct, [facility] [place] [facility] [address] [id number] [place] [address] 6347 Oct, [facility] [place] [facility] [address] [id number] [place] [address] 1220 Oct, [facility] [place] [facility] [address] [id number] [place] [address]- 63[address] Oct, [facility] [place] [facility] [address] [id number] [place] [address] 4080 Sep, [facility] [place] [facility] [address] [id number] [place] [address]- 2382 Sep, [facility] [place] [facility] [address] [id number] [place] [address]- 3059 Sep, [facility] [place] [facility] [address] [id number] [place] [address]- 0564 Sep, [facility] [place] [facility] [address] [id number] [place] [address]- 2550 Sep, [facility] [place] [facility] [address] [id number] [place] [address]- [address] Sep, [facility] [place] [facility] [address] [id number] [place] [address]- 8510 Sep, [facility] [place] [facility] [address] [id number] [place] [address]- 2968 Sep, [facility] [place] [facility] [address] [facility] [id number] [place] [address]- 3750 Sep, [facility] [place] [facility] [address] [id number] [place] [address] 6515 Sep, [facility] [place] [facility] [address] [id number] [place] [address]- 1097 Sep, [facility] [place] [facility] [address] [id number] [place] [address]- 7527 Sep, [facility] [place] [facility] [address] [facility] [id number] [place] [address]- 8380 Sep, [facility] [place] [facility] [address] [id number], [place] [address] Sep, [facility] [place] [facility] [address] [id number] [place] [address]- 7532 Sep, [facility] [place] [facility] [address] [facility] [id number] [place] [address]- 4197 Sep, [facility] [place] [facility] [address] [id number], [place] [address] Sep, [facility] [place] [facility] [address] [id number], [place] [address]- [address] Sep, [facility] [place] [facility] [address] [id number] [place] [address]- 1716 Sep, [facility] [place] [facility] [address] [facility] [id number], [place] [address]- 80[address] Sep, [facility] [place] [facility] [address] [facility] [id number] [place] [address]- 2449 Aug, [facility] [place] [facility] [address] [id number] [place] [address]- 8952 31 Aug, 2011 [facility] [place] [facility] [address] [id number] [place] [address]- 4173 29 Aug, 2011 [facility] [place] [facility] [address] [id number] [place] [address]- 1200 27 Aug, 2011 [facility] [place] [facility] [address] [id number] [place] [address]- 5321 27 Aug, 2011 [facility] [place] [facility] [address] [id number] [place] [address]- 2793 18 Aug, 2011 [facility] [place] [facility] [address] [id number] [place] [address]- 1701 18 Aug, 2012 [facility] [place] [facility] [address] [id number] [place] [address]- 1920 17 Aug, 2012 [facility] [place] [facility] [address] [id number] [place] [address]- 1814 16 Aug, 2012 [facility] [place] [facility] [address] [id number] [place] [address]- 0978 16 Aug, 2012 [facility] [place] [facility] [address] [id number] [place] [address]- 7799 15 Aug, 2012 [facility] [place] [facility] [address] [facility] [id number] [place] [address]- 5321 09 Aug, 2012 [facility] [place] [facility] [address] [id number] [place] [address]- 4397 05 Aug, 2012 [facility] [place] [facility] [address] [id number] [place] [address]- 9139 05 Aug, 2012 [facility] [place] [facility] [address] [id number] [place] [address]- 3125 04 Aug, 2012 [facility] [place] [facility] [address] [id number] [place] [address]- 6323 14 Sep2011 [facility] [place] [facility] [address] [id number] [place] [address]- 5869 Jul, [facility] [place] [facility] [address] [id number] [place] [address]- 2606 Jun, [facility] [place] [facility] [address] [id number] [place] [address]- 3356 Jun, [facility] [place] [facility] [address] [id number] [place] [address]- 3216 May, [facility] [place] [facility] [address] [id number] [place] [address]- 2171 May, [facility] [address] [id number] [place] [address]- 6179 May, [facility] [place] [facility] [address] [id number] [place] [address]- 2652 May, [facility] [place] [facility] [address] [id number] [place] [address]- 4911 May, [facility] [place] [facility] [address] [id number] [place] [address]- 8058 May, [facility] [place] [facility] [address] [id number] [place] [address]- 7149 Apr, [facility] [place] [facility] [address] [id number] [place] [address]- 3737 Apr, [facility] [place] [facility] [address] [id number] [place] [address]- 2816 March, [facility] [place] [facility] [address] [id number] [place] [address]- 2143 March, [facility] [place] [facility] [address] [id number] [place] [address]- 8905 March, [facility] [place] [facility] [address] [id number] [place] [address]- 5406 March, [facility] [place] [facility] [address] [id number] [place] [address]- 5693 March, [facility] [place] [facility] [address] [id number] [place] [address]- 3726 March, [facility] [address] [id number] [place] [address]- 5425 Feb, [facility] [place] [facility] [address] [id number] [place] [address]- 5864 Feb, [facility] [place] [facility] [address] [id number] [place] [address]- 6406 Feb, [facility] [place] [facility] [address] [id number] [place] [address]- 5174 Feb, [facility] [place] [facility] [address] [id number] [place] [address]- 6976 Feb, [facility] [place] [facility] [address] [id number] [place] [address]- 3540 Feb, [facility] [address] [id number] [place] [address]- 5626 Feb, [facility] [place] [facility] [address] [id number] [place] [address]- 3964 Feb, [facility] [address] [id number] [place] [address]- 9207 Feb, [facility] [place] [facility] [address] [id number] [place] [address]- 2482 Jan, [facility] [place] [facility] [address] [id number] [place] [address]- 0708 Jan, [facility] [place] [facility] [address] [id number] [place] [address]- 3617 Jan, [facility] [place] [facility] [address] [id number] [place] [address]- 1686 Jan, [facility] [place] [facility] [address] [id number] [place] [address]- 2222 Jan, [facility] [place] [facility] [address] [id number] [place] [address]- 6649 Jan, [facility] [place] [facility] [address] [id number] [place] [address]- 6615 14 Jan, 2012 [facility] [place] [facility] [address] [id number] [place] [address]- 2612 09 Jan, 2012 [facility] [place] [facility] [address] [id number] [place] [address]- 5226 09 Jan, 2012 [facility] [place] [facility] [address] [id number] [place] [address]- 7864 08 Jan, 2012 [facility] [place] [facility] [address] [id number] [place] [address]- 9015 07 Jan, 2012 [facility] [place] [facility] [address] [id number] [place] [address]- 5513 06 Jan, 2012 [facility] [place] [facility] [address] [facility] [id number] [place] [address]- 5716 Jan, [facility] [place] [facility] [address] [id number] [place] [address]- 7586 Jan, [facility] [place] [facility] [address] [id number] [place] [address]- 3105 28 Dec, 2011 [facility] [place] [facility] [address] [facility] [id number] [place] [address]- 2434 27 Dec, 2011 [facility] [place] [facility] [address] [facility] [id number] [place] [address]- 6869 25 Dec, 2011 [facility] [place] [facility] [address] [facility] [id number] [place] [address]- 0836 23 Dec, 2011 [facility] [place] [facility] [address] [facility] [id number] [place] [address]- 7968 16 Dec, 2011 [facility] [place] [facility] [address] [id number] [place] [address]- 1816 08 Dec, 2011 [facility] [place] [facility] [address] [facility] [id number] [place] [address]- 5955 08 Dec, 2011 [facility] [place] [facility] [address] [id number] [address]- 3836 07 Dec, 2011 [facility] [address] [id number] [place] [address]- 1702 Dec, [facility] [place] [facility] [address] [id number] [place] [address]- 6677 Nov, [facility] [address] [facility] [id number] [place] [address]- 6630 Nov, [facility] [address] [id number] [place] [address]- 2703 Nov, [facility] [address] [id number] [place] [address]- 1467 Nov, [facility] [address] [id number] [place] [address]- 0648 Oct, [facility] [address] [facility] [id number] [place] [address]- 2190 Oct, [facility] [place] [facility] [address] [id number] [place] [address]- 8955 Oct, [facility] [address] [facility] [id number] [place] [address]- 4591 Oct, [facility] [place] [facility] [address] [facility] [id number] [place] [address]- 1790 Oct, [facility] [address] [facility] [id number] [place] [address]- 0127 Oct, [facility] [place] [facility] [address] [id number] [place] [address]- 3109 Oct, [facility] [place] [facility] [address] [id number] [place] [address]- 4363 Sep, [facility] [place] [facility] [address] [facility] [id number] [place] [address]- 7455 Sep, [facility] [place] [facility] [address] [facility] [id number] [place] [address]- 5215 Sep, [facility] [place] [facility] [address] [id number] [place] [address]- 2925 Sep, [facility] [place] [facility] [address] [id number] [place] [address]- 5148 Sep, [facility] [place] [facility] [address] [id number] [place] [address] 2546 Sep, [facility] [place] [facility] [address] [id number] [place] [address]- 6906 Sep, [facility] [place] [facility] [address] [id number] [place] [address]- 7178 Sep, [facility] [place] [facility] [address] [id number] [place] [address]- 2098 Sep, [facility] [place] [facility] [address] [id number] [place] [address]- 0583 Aug, [facility] [place] [facility] [address] [id number] [place] [address]- 7112 Aug, [facility] [place] [facility] [address] [id number] [place] [address]- 5723 Aug, [facility] [place] [facility] [address] [id number] [place] [address]- 2907 May, [facility] [place] [facility] [address] [id number] [place] [address]- 5236 Nov, [facility] [place] [facility] [address] [id number] [place] [address]- 5316 Oct, [facility] [place] [facility] [address] [id number] [place] [address] 2544 Oct, [facility] [place] [facility] [address] [id number] [place] [address]- 0396 Oct, [facility] [place] [facility] [address] [id number] [place] [address]- 5576 Oct, [facility] [place] [facility] [address] [id number] [place] [address]- 5212 Oct, [facility] [address] [facility] [id number], [place] [address]- 6365 03 Sep, 2010 [facility] [address] [facility] [id number], [place] [address]- 4045 02 Sep, 2010 [facility] [address] [facility] [id number], [place] [address]- 5532 14 Jul, 2010 [facility] [address] [facility] [id number], [place] [address]- 5019 Oct, [facility] [address] [facility] [id number], [place] [address]- 8439 Oct, [facility] [address] [facility] [id number], [place] [address]- 8016 Oct, [facility] [id number], [place] [address]- 0561 Oct, [facility] [address] [id number], [place] [address]- 4525 Sep, [facility] [address] [id number], [place] [address]- 3203 Sep, [facility] [address] [facility] [id number], [place] [address]- 0622 Sep, [facility] [address] [facility] [id number], [place] [address]- 8882 Sep, [facility] [address] [facility] [id number], [place] [address]- 6600 Sep, [facility] [address] [facility] [id number], [place] [address]- 9621 Jul, [facility] [address] [facility] [id number], [place] [address]- 1091 Apr, [facility] [address] [id number] [address]- 6[address] 12 Dec, 2008 IMMUNIZATIONS No Known Immunizations SOCIAL HISTORY Never Assessed REASON FOR VISIT returned call. PLAN OF CARE VITAL SIGNS MEDICATIONS Unknown Medications RESULTS No Results PROCEDURES No Known procedures INSTRUCTIONS MEDICATIONS ADMINISTERED No Known Medications MEDICAL (GENERAL) HISTORY Type Description Date Medical History hypertension Medical History hyperlipidemia Medical History diabetes type II Medical History COPD Medical History asthma Surgical History hysterectomy Surgical History arthritis surgery Hospitalization History surgeries
--- OUTSIDE RECORDS SUMMARY | 2018-11-26 16:18 | XMS REPORT ---
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 Name Role Phone LOKICORBY KentIN Unavailable PROBLEMS Type Condition ICD9-CM Code NXC05-EV Code Onset Dates Condition Status SNOMED Code Problem Essential hypertension I10 Active 77014293 Problem Lumbago with sciatica, left side M54.42 Active 064979290 Problem Acquired hypothyroidism E03.9 Active 468902512 Problem Prediabetes R73.03 Active 052656548 Problem Reactive depression F32.9 Active 62469399 Problem Mixed hyperlipidemia E78.2 Active 736004355 Problem Pain in right ankle and joints of right foot M25.571 Active 39124353026907 Problem Chronic obstructive pulmonary disease, unspecified COPD type J44.9 Active 73801932 Problem Gastroesophageal reflux disease, esophagitis presence not specified K21.9 Active 751910795 Problem Lumbago with sciatica, right side M54.41 Active [id number] Problem Cigarette nicotine dependence without complication F17.210 Active 51904943 Problem Other chronic pain G89.29 Active 43238043 ALLERGIES No Information ENCOUNTERS Encounter Location Date Diagnosis [facility] [id number] [address] Jul, [facility] [id number] [address] Jun, [facility] [id number] [place] [address]74- 9519 May, [facility] [id number] [place] [address] 99948- 1415 May, [facility] [id number] [address] Apr, [place] [id number] [address] Apr, [facility] [id number] [place] [address] 71697- 1410 Apr, [facility] [id number] [place] [address] 12207- 9548 Apr, [place] [address] [address]- [address] Apr, Pain in right ankle and joints of right foot M25.571 [place] [id number] [place] [address] 92194- 9690 Apr, [place] [id number] [place] [address] 07603- 0002 Apr, Bronchitis J40 ; Pain in right ankle and joints of right foot M25.571 ; Other chronic pain G89.29 ; Prediabetes R73.03 ; Chronic obstructive pulmonary disease, unspecified COPD type J44.9 and Cigarette nicotine dependence without complication F17.210 [facility] [id number] [place] [address]996 -2970 13 Apr, 2018 Seasonal allergic rhinitis, unspecified trigger J30.2 [place] [id number] [place] [address] 08809- 3279 08 Apr, 2018 Onychomycosis B35.1 ; Onychocryptosis L60.0 and DM neuro manif type II E11.49 [place] [id number] [place] [address] 88988- 0136 Apr, Reactive depression F32.9 ; Thoracic myofascial strain, initial encounter S29.019A and Leg cramps R25.2 [place] [id number] [place] [address] 26977- 1246 March, [facility] [id number] [place] [address] 70291- 3888 March, Type 2 diabetes mellitus with hyperglycemia E11.65 [place] [id number] [place] [address] 46127- 6131 March, Reactive depression F32.[address] [address]- [address] March, Pain in thoracic spine M54.6 and Other chronic pain G89.29 [place] [address] 7[address]89- 3074 Feb, [place] [address] 65487- 5311 Jan, Reactive depression F32.9 ; Essential hypertension I10 ; Gastroesophageal reflux disease, esophagitis presence not specified K21.9 ; Lumbago with sciatica, left side M54.42 and Lumbago with sciatica, right side M54.[address] 98[address]- 9052 Jan, Reactive depression F32.9 and Pharyngoesophageal dysphagia R13.14 [place] [address] 08562- 7693 Jan, [address] 9[address]68- 1162 Jan, Encounter for immunization Z23 [address] [address]- 9804 Jan, Onychomycosis B35.1 and DM neuro manif type II E11.49 [place] [address] 26675- 1494 Jan, [place] [address] 73430- 5603 Jan, Prediabetes R73.03 [place] [address] 57331- 9511 Dec, [place] [address] 41610- 9621 Dec, Essential hypertension I10 ; Mixed hyperlipidemia E78.2 ; Acquired hypothyroidism E03.9 ; Reactive depression F32.9 and Prediabetes R73.03 [place] [address] 11008- 1251 Dec, [facility] [address] 34924- 9587 Dec, [facility] [address] 57762- 2210 Dec, DM neuro manif type II E11.49 [facility] [address] 12[address] -[address]288 Dec, Bruise T14.8XXA ; Type 2 diabetes mellitus with hyperglycemia E11.65 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 [place] [address] 85896- 5230 Oct, [place] [address] 13951- 9924 March, Onychomycosis B35.1 and DM neuro manif type II E11.49 [place] [id number] [place] [address] 24506- 9268 Jun, [place] [id number] [place] [address] 03700- 1308 Jun, [place] [address] 83475- 1909 Jun, COPD with acute exacerbation 491.21 [place] [address] 96779- 2249 Apr, [place] [address] 86154- 2275 14 Feb, 2015 [place] [address] 26216- 0076 Feb, [place] [address] [facility] [id number] [place] [address]- 2585 26 Jan, 2015 [facility] [place] [facility] [address] [id number] [place] [address]- 6512 Jan, [facility] [place] [facility] [address] [id number] [place] [address]- 8076 Jan, [facility] [place] [facility] [address] [id number] [place] [address]- 1602 Jan, [facility] [place] [facility] [address] [id number] [place] [address]- 1985 24 Jan, 2015 [facility] [place] [facility] [address] [id number] [place] [address]- 5074 Jan, [facility] [place] [facility] [address] [id number] [place] [address]- 5618 Jan, [facility] [place] [facility] [address] [id number] [place] [address]- 9010 Jan, 2014 [facility] [place] [facility] [address] [id number] [place] [address]- 7980 23 Jan, 2015 [facility] [place] [facility] [address] [id number] [place] [address]- 4412 19 Jan, 2015 [facility] [place] [facility] [address] [id number] [place] [address]- 9499 19 Jan, 2015 [facility] [place] [facility] [address] [id number] [place] [address]- 7664 18 Jan, 2014 [facility] [place] [facility] [address] [id number] [place] [address]- 7601 18 Jan, 2015 [facility] [place] [facility] [address] [id number] [place] [address]- 1325 16 Jan, 2015 [facility] [place] [facility] [address] [id number] [place] [address]- 4176 16 Jan, 2015 [facility] [place] [facility] [address] [id number] [place] [address]- 4105 16 Jan, 2015 [facility] [place] [facility] [address] [id number] [place] [address]- 8822 16 Jan, 2015 [facility] [place] [facility] [address] [id number] [place] [address]- 5925 15 Jan, 2015 [facility] [place] [facility] [address] [id number] [place] [address]- 9101 13 Jan, 2015 [facility] [place] [facility] [address] [id number] [place] [address]- 7334 13 Jan, 2015 [facility] [place] [facility] [address] [id number] [place] [address]- 0697 13 Jan, 2015 [facility] [place] [facility] [address] [id number] [place] [address]- 2534 13 Jan, 2015 [facility] [place] [facility] [address] [id number] [place] [address]- 8739 Jan, [facility] [place] [facility] [address] [id number] [place] [address]- 6996 Jan, [facility] [place] [facility] [address] [id number] [place] [address]- 1642 Jan, [facility] [place] [facility] [address] [id number] [place] [address]- 9217 24 Dec, 2014 [facility] [place] [facility] [address] [id number] [place] [address]- 4482 Dec, 2014 [facility] [place] [facility] [address] [id number] [place] [address]- 6480 Dec, 2014 [facility] [place] [facility] [address] [id number] [place] [address]- 0402 Dec, [facility] [place] [facility] [address] [id number] [place] [address]- 3101 Dec, [facility] [place] [facility] [address] [id number] [place] [address]- 8392 Dec, [facility] [place] [facility] [address] [id number] [place] [address]- 2117 20 Dec, 2014 [facility] [place] [facility] [address] [id number] [place] [address]- 4666 Dec, [facility] [place] [facility] [address] [id number] [place] [address]- 7206 Dec, [facility] [place] [facility] [address] [id number] [place] [address]- 8451 Dec, [facility] [place] [facility] [address] [id number] [place] [address]- 7654 Dec, [facility] [place] [facility] [address] [id number] [place] [address]- 8832 Dec, [facility] [place] [facility] [address] [id number] [place] [address]- 1093 Nov, [facility] [place] [facility] [address] [id number] [place] [address]- 1615 Nov, [facility] [place] [facility] [address] [id number] [place] [address]- 0350 Nov, [facility] [place] [facility] [address] [id number] [place] [address]- 2210 Nov, [facility] [place] [facility] [address] [id number] [place] [address]- 2492 Nov, [facility] [place] [facility] [address] [id number] [place] [address]- 1087 Nov, [facility] [place] [facility] [address] [id number] [place] [address]- 0831 Nov, [facility] [place] [facility] [address] [id number] [place] [address]- 4171 Nov, [facility] [place] [facility] [address] [id number] [place] [address]- 3305 Nov, [facility] [place] [facility] [address] [id number] [place] [address]- 4914 Nov, [facility] [place] [facility] [address] [id number] [place] [address]- 9382 Nov, [facility] [place] [facility] [address] [id number] [place] [address]- 7467 Nov, [facility] [place] [facility] [address] [id number] [place] [address]- 3383 Oct, [facility] [place] [facility] [address] [id number] [place] [address]- 6992 Oct, [facility] [place] [facility] [address] [id number] [place] [address]- 4068 Oct, [facility] [place] [facility] [address] [id number] [place] [address]- 2367 Oct, [facility] [place] [facility] [address] [id number] [place] [address]- 0744 Oct, [facility] [place] [facility] [address] [id number] [place] [address]- 5426 29 Oct, 2014 [facility] [place] [facility] [address] [id number] [place] [address]- 7137 Oct, [facility] [place] [facility] [address] [id number] [place] [address]- 0083 Oct, [facility] [place] [facility] [address] [id number] [place] [address]- 9478 17 Oct, 2014 [facility] [place] [facility] [address] [id number] [place] [address]- 8875 17 Oct, 2014 [facility] [place] [facility] [address] [id number] [place] [address]- 8532 16 Oct, 2014 [facility] [place] [facility] [address] [id number] [place] [address]- 8947 16 Oct, 2014 [facility] [place] [facility] [address] [id number] [place] [address]- 5529 15 Oct, 2014 [facility] [place] [facility] [address] [id number] [place] [address]- 2467 Oct, [facility] [place] [facility] [address] [id number] [place] [address]- 6228 Oct, [facility] [place] [facility] [address] [id number] [place] [address]- 8513 Sep, [facility] [place] [facility] [address] [id number] [place] [address]- 8548 Sep, [facility] [place] [facility] [address] [id number] [place] [address]- 2024 Sep, [facility] [place] [facility] [address] [id number] [place] [address]- 2378 Sep, [facility] [place] [facility] [address] [id number] [place] [address]- 8651 Aug, [facility] [place] [facility] [address] [id number] [place] [address]- 8715 Aug, [facility] [place] [facility] [address] [id number] [place] [address]- 5950 Aug, [facility] [place] [facility] [address] [id number] [place] [address]- 0874 Aug, [facility] [place] [facility] [address] [facility] [id number] [place] [address]- 0563 Aug, [facility] [place] [facility] [address] [id number] [place] [address]- 5245 Aug, [facility] [place] [facility] [address] [id number] [place] [address]- 1496 29 Jul, 2014 [facility] [place] [facility] [address] [id number] [place] [address]- 7176 29 Jul, 2014 [facility] [place] [facility] [address] [id number] [place] [address]- 0053 15 Jul, 2014 [facility] [place] [facility] [address] [id number] [place] [address]- 8381 15 Jul, 2014 [facility] [place] [facility] [address] [id number] [place] [address]- 5669 Jul, [facility] [place] [facility] [address] [id number] [place] [address]- 1929 Jul, [facility] [place] [facility] [address] [id number] [place] [address]- 5567 Jun, [facility] [place] [facility] [address] [id number] [place] [address]- 6957 Jun, [facility] [place] [facility] [address] [id number] [place] [address]- 4558 Jun, [facility] [place] [facility] [address] [id number] [place] [address]- 7884 Jun, [facility] [place] [facility] [address] [id number] [place] [address]- 6667 Jun, [facility] [place] [facility] [address] [id number] [place] [address]- 4122 Jun, [facility] [place] [facility] [address] [id number] [place] [address]- 6920 Jun, [facility] [place] [facility] [address] [id number] [place] [address]- 4717 May, [facility] [place] [facility] [address] [id number] [place] [address]- 4039 May, [facility] [place] [facility] [address] [id number] [place] [address]- 4265 May, [facility] [place] [facility] [address] [id number] [place] [address]- 7609 May, [facility] [place] [facility] [address] [id number] [place] [address]- 0316 May, [facility] [place] [facility] [address] [id number] [place] [address]- 2560 May, [facility] [place] [facility] [address] [id number] [place] [address]- 2240 May, [facility] [place] [facility] [address] [id number] [place] [address]- 3481 May, [facility] [place] [facility] [address] [id number] [place] [address]- 1307 May, [facility] [place] [facility] [address] [id number] [place] [address]- 6826 May, [facility] [place] [facility] [address] [id number] [place] [address]- 4317 May, [facility] [place] [facility] [address] [id number] [place] [address]- 4713 May, [facility] [place] [facility] [address] [id number] [place] [address]- 6573 Apr, [facility] [place] [facility] [address] [id number] [place] [address]- 0904 Apr, [facility] [place] [facility] [address] [id number] [place] [address]- 5165 Apr, [facility] [place] [facility] [address] [id number] [place] [address]- 6519 Apr, [facility] [place] [facility] [address] [id number] [place] [address]- 4175 Apr, [facility] [place] [facility] [address] [id number] [place] [address]- 1520 Apr, [facility] [place] [facility] [address] [id number] [place] [address]- 3264 Apr, [facility] [place] [facility] [address] [id number] [place] [address]- 3794 Apr, [facility] [place] [facility] [address] [id number] [place] [address]- 8467 Apr, [facility] [place] [facility] [address] [id number] [place] [address]- 2222 Apr, [facility] [place] [facility] [address] [id number] [place] [address]- 5770 March, [facility] [address] [id number] [place] [address]- 1935 March, [facility] [place] [facility] [address] [id number] [place] [address]- 7503 March, [facility] [place] [facility] [address] [id number] [place] [address]- 6369 March, [facility] [place] [facility] [address] [id number] [place] [address]- 3420 March, [facility] [place] [facility] [address] [id number] [place] [address]- 0035 March, [facility] [place] [facility] [address] [id number] [place] [address]- 0524 Feb, [facility] [place] [facility] [address] [id number] [place] [address]- 7100 Feb, [facility] [place] [facility] [address] [id number] [place] [address]- 0903 Feb, [facility] [place] [facility] [address] [id number] [place] [address]- 9555 Feb, [facility] [place] [facility] [address] [id number] [place] [address]- 8632 Feb, [facility] [place] [facility] [address] [id number] [place] [address]- 4954 Feb, [facility] [place] [facility] [address] [id number] [place] [address]- 2743 Feb, [facility] [place] [facility] [address] [id number] [place] [address]- 7124 Feb, [facility] [place] [facility] [address] [id number] [place] [address]- 2049 Feb, [facility] [place] [facility] [address] [id number] [place] [address]- 4579 Feb, [facility] [place] [facility] [address] [id number] [place] [address]- 6988 Jan, [facility] [place] [facility] [address] [id number] [place] [address]- 7663 Jan, [facility] [place] [facility] [address] [id number] [place] [address]- 4958 Jan, [facility] [place] [facility] [address] [id number] [place] [address]- 0607 Jan, [facility] [place] [facility] [address] [id number] [place] [address]- 0737 Jan, [facility] [place] [facility] [address] [id number] [place] [address]- 0162 Jan, [facility] [place] [facility] [address] [id number] [place] [address]- 2653 Jan, [facility] [place] [facility] [address] [id number] [place] [address]- 8334 Jan, [facility] [place] [facility] [address] [id number] [place] [address]- 1152 Dec, [facility] [place] [facility] [address] [id number] [place] [address]- 0989 Dec, [facility] [place] [facility] [address] [id number] [place] [address]- 2518 Dec, [facility] [place] [facility] [address] [id number] [place] [address]- 4310 Dec, [facility] [place] [facility] [address] [id number] [place] [address]- 5511 Dec, [facility] [place] [facility] [address] [id number] [place] [address]- 9590 Dec, [facility] [place] [facility] [address] [id number] [place] [address]- 4824 Dec, [facility] [place] [facility] [address] [id number] [place] [address]- 4316 Dec, [facility] [address] [id number] [place] [address]- 3490 Nov, [facility] [place] [facility] [address] [id number] [place] [address]- 3376 Nov, [facility] [address] [id number] [place] [address]- 8396 Nov, [facility] [place] [facility] [address] [id number] [place] [address]- 3002 Nov, [facility] [address] [id number] [place] [address]- 2153 Nov, [facility] [address] [id number] [place] [address] Nov, [facility] [address] [id number] [place] [address] Nov, [facility] [address] [id number] [place] [address] Nov, [facility] [place] [facility] [address] [id number] [place] [address] Nov, [facility] [address] [id number] [place] [address] Nov, [facility] [place] [facility] [address] [id number] [place] [address] Nov, [facility] [address] [id number] [place] [address] Oct, [facility] [place] [facility] [address] [id number] [place] [address] Oct, [facility] [place] [facility] [address] [id number] [place] [address] Oct, [facility] [place] [facility] [address] [id number] [place] [address] Oct, [facility] [place] [facility] [address] [id number] [place] [address] Sep, [facility] [place] [facility] [address] [id number] [place] [address] Sep, [facility] [place] [facility] [address] [id number] [place] [address] Sep, [facility] [place] [facility] [address] [id number] [place] [address] Sep, [facility] [place] [facility] [address] [id number] [place] [address] Aug, [facility] [place] [facility] [address] [id number] [place] [address] Aug, [facility] [place] [facility] [address] [id number] [place] [address] Aug, [facility] [place] [facility] [address] [id number], [place] [address] Aug, [facility] [place] [facility] [address] [id number] [place] [address] Aug, [facility] [place] [facility] [address] [id number], [place] [address] Aug, [facility] [place] [facility] [address] [id number], [place] [address] Aug, [facility] [place] [facility] [address] [id number], [place] [address] Aug, [facility] [place] [facility] [address] [id number] [place] [address] Jul, [facility] [place] [facility] [address] [id number], [place] [address] Jul, [facility] [place] [facility] [address] [id number] [place] [address] Jul, [facility] [place] [facility] [address] [id number] [place] [address] 24 Sep, 2012 [facility] [place] [facility] [address] [id number] [place] [address] 2546 24 Sep, 2012 [facility] [place] [facility] [address] [id number] [place] [address]- [address] 23 Sep, 2012 [facility] [place] [facility] [address] [id number] [place] [address] 2546 19 Sep, 2012 [facility] [place] [facility] [address] [id number] [place] [address] 2548 18 Sep, 2012 [facility] [place] [facility] [address] [id number] [place] [address] 17 Sep, 2012 [facility] [place] [facility] [address] [id number] [place] [address]- [address] 16 Jul, 2012 [facility] [place] [facility] [address] [id number] [place] [address]- [address] 13 Jul, 2012 [facility] [place] [facility] [address] [id number] [place] [address]65 13 Jul, 2012 [facility] [place] [facility] [address] [id number] [place] [address]247 12 Jul, 2012 [facility] [place] [facility] [address] [id number] [place] [address]- 8519 11 Jul, 2012 [facility] [place] [facility] [address] [id number] [place] [address]- [address]48 04 Jul, 2012 [facility] [place] [facility] [address] [id number] [place] [address]- [address] 30 Jun, 2013 [facility] [place] [facility] [address] [id number] [place] [address] Jun, [facility] [place] [facility] [address] [id number] [place] [address] Jun, [facility] [place] [facility] [address] [id number] [place] [address] May, [facility] [place] [facility] [address] [id number] [place] [address] May, [facility] [address] [id number] [place] [address] May, [facility] [place] [facility] [address] [id number] [place] [address]- [address] May, [facility] [place] [facility] [address] [id number] [place] [address] Apr, [facility] [place] [facility] [address] [id number] [place] [address] Apr, [facility] [place] [facility] [address] [id number] [place] [address] Apr, [facility] [address] [id number] [place] [address] Apr, [facility] [address] [id number] [place] [address] March, [facility] [address] [id number] [place] [address] March, [facility] [facility] [address] [id number] [place] [address] March, [facility] [place] [facility] [address] [id number] [place] [address] 135[address] Feb, [facility] [place] [facility] [address] [id number] [place] [address] Feb, [facility] [place] [facility] [address] [id number] [place] [address] Jan, [facility] [place] [facility] [address] [id number] [place] [address] Jan, [facility] [place] [facility] [address] [id number] [place] [address] Jan, [facility] [place] [facility] [address] [id number] [place] [address] Jan, [facility] [address] [id number] [place] [address] 12[address] Jan, [facility] [address] [id number] [place] [address] Dec, [facility] [address] [facility] [id number] [place] [address] 9966 Dec, [facility] [address] [id number] [place] [address] 07[address] Dec, [facility] [address] [id number] [place] [address] Dec, [facility] [address] [id number] [place] [address] 3656 Dec, [facility] [address] [facility] [id number] [place] [address]- 9[address] Dec, [facility] [address] [id number] [place] [address]- [address] Dec, [facility] [address] [id number] [place] [address] 6[address] Dec, [facility] [address] [facility] [id number] [place] [address]- [address] Nov, [facility] [address] [id number] [place] [address] 6513 Nov, [facility] [place] [facility] [address] [id number] [place] [address]- 0918 Nov, [facility] [place] [facility] [address] [id number] [place] [address]- 1872 Nov, [facility] [place] [facility] [address] [facility] [id number] [place] [address]- 0795 Nov, [facility] [place] [facility] [address] [facility] [id number] [address] Nov, [facility] [place] [facility] [address] [id number] [place] [address]- [address] Nov, [facility] [place] [facility] [address] [id number] [place] [address]- 0654 Oct, [facility] [place] [facility] [address] [id number] [place] [address]- 6378 Oct, [facility] [place] [facility] [address] [id number] [place] [address]- 8048 Oct, [facility] [place] [facility] [address] [id number] [place] [address]- 6520 Oct, [facility] [place] [facility] [address] [id number] [place] [address]- 6745 Oct, [facility] [place] [facility] [address] [id number] [place] [address]- 6593 Oct, [facility] [place] [facility] [address] [id number] [place] [address] Oct, [facility] [place] [facility] [address] [id number] [place] [address] 2442 Oct, [facility] [place] [facility] [address] [id number] [place] [address]- 8672 Sep, [facility] [place] [facility] [address] [id number] [place] [address]- 7292 Sep, [facility] [place] [facility] [address] [id number] [place] [address]- 2848 Sep, [facility] [place] [facility] [address] [id number] [place] [address]- 8392 Sep, [facility] [place] [facility] [address] [id number] [place] [address]- 1149 Sep, [facility] [place] [facility] [address] [id number] [place] [address] 1813 Sep, [facility] [place] [facility] [address] [id number] [place] [address]- 1634 Sep, [facility] [place] [facility] [address] [id number] [place] [address]- 8572 Sep, [facility] [place] [facility] [address] [id number] [place] [address]- 1433 Sep, [facility] [place] [facility] [address] [facility] [id number] [place] [address]- 1045 Sep, [facility] [place] [facility] [address] [id number] [place] [address]- 0586 Sep, [facility] [place] [facility] [address] [id number] [place] [address]- 8720 Sep, [facility] [place] [facility] [address] [facility] [id number] [place] [address]- 1332 Sep, [facility] [place] [facility] [address] [facility] [id number] [place] [address]- 6968 Sep, [facility] [place] [facility] [address] [id number], [place] [address]- 7961 Sep, [facility] [place] [facility] [address] [id number] [place] [address]- 9579 Sep, [facility] [place] [facility] [address] [facility] [id number] [place] [address]- 0081 Sep, [facility] [place] [facility] [address] [id number], [place] [address]- 2160 Sep, [facility] [place] [facility] [address] [id number], [place] [address]- 4056 Sep, [facility] [place] [facility] [address] [id number] [place] [address]- 3926 Sep, [facility] [place] [facility] [address] [facility] [id number], [place] [address]- 9311 Aug, [facility] [place] [facility] [address] [facility] [id number], [place] [address]- 67[address] Aug, [facility] [place] [facility] [address] [id number] [place] [address]- 6741 29 Aug, 2011 [facility] [place] [facility] [address] [id number] [place] [address]- 6313 27 Aug, 2011 [facility] [place] [facility] [address] [id number] [place] [address]- 2805 27 Aug, 2012 [facility] [place] [facility] [address] [id number] [place] [address]- 0008 18 Aug, 2012 [facility] [place] [facility] [address] [id number] [place] [address]- 4472 18 Aug, 2012 [facility] [place] [facility] [address] [id number] [place] [address]- 6973 17 Aug, 2012 [facility] [place] [facility] [address] [id number] [place] [address]- 6953 16 Aug, 2012 [facility] [place] [facility] [address] [id number] [place] [address]- 3405 16 Aug, 2012 [facility] [place] [facility] [address] [id number] [place] [address]- 7357 15 Aug, 2012 [facility] [place] [facility] [address] [id number] [place] [address]- 0380 09 Aug, 2012 [facility] [place] [facility] [address] [facility] [id number] [place] [address]- 7644 05 Aug, 2012 [facility] [place] [facility] [address] [id number] [place] [address]- 6519 05 Aug, 2012 [facility] [place] [facility] [address] [id number] [place] [address]- 1871 04 Aug, 2012 [facility] [place] [facility] [address] [id number] [place] [address]- 4876 14 Jul, 2012 [facility] [place] [facility] [address] [id number] [place] [address]- 3888 10 Jul, 2012 [facility] [place] [facility] [address] [id number] [place] [address]- 4921 Jun, [facility] [place] [facility] [address] [id number] [place] [address]- 0059 Jun, [facility] [place] [facility] [address] [id number] [place] [address]- 9961 May, [facility] [place] [facility] [address] [id number] [place] [address]- 5521 May, [facility] [place] [facility] [address] [id number] [place] [address]- 7634 May, [facility] [place] [facility] [address] [id number] [place] [address]- 2376 May, [facility] [place] [facility] [address] [id number] [place] [address]- 9407 May, [facility] [place] [facility] [address] [id number] [place] [address]- 9425 May, [facility] [place] [facility] [address] [id number] [place] [address]- 0256 Apr, [facility] [place] [facility] [address] [id number] [place] [address]- 9361 Apr, [facility] [place] [facility] [address] [id number] [place] [address] March, [facility] [place] [facility] [address] [id number] [place] [address]- 4459 March, [facility] [place] [facility] [address] [id number] [place] [address]- 1782 March, [facility] [place] [facility] [address] [id number] [place] [address]- 8711 March, [facility] [place] [facility] [address] [id number] [place] [address]- 1214 March, [facility] [place] [facility] [address] [id number] [place] [address]- 4986 March, [facility] [place] [facility] [address] [id number] [place] [address]- 2991 30 Feb, 2012 [facility] [address] [id number] [place] [address]- 4780 Feb, [facility] [place] [facility] [address] [id number] [place] [address]- 2021 Feb, [facility] [place] [facility] [address] [id number] [place] [address]- 3326 Feb, [facility] [place] [facility] [address] [id number] [place] [address]- 5776 Feb, [facility] [place] [facility] [address] [id number] [place] [address]- 2557 Feb, [facility] [place] [facility] [address] [id number] [place] [address]- 4773 Feb, [facility] [address] [id number] [place] [address]- 4993 Feb, [facility] [place] [facility] [address] [id number] [place] [address]- 4045 Feb, [facility] [place] [facility] [address] [id number] [place] [address]- 9849 30 Jan, 2012 [facility] [place] [facility] [address] [id number] [place] [address]- 0114 Jan, [facility] [place] [facility] [address] [id number] [place] [address]- 4945 Jan, [facility] [place] [facility] [address] [id number] [place] [address]- 0733 22 Jan, 2012 [facility] [place] [facility] [address] [id number] [place] [address]- 9741 21 Jan, 2012 [facility] [place] [facility] [address] [id number] [place] [address]- 7889 20 Jan, 2012 [facility] [place] [facility] [address] [id number] [place] [address]- 9442 14 Jan, 2012 [facility] [place] [facility] [address] [id number] [place] [address]- 4509 09 Jan, 2012 [facility] [place] [facility] [address] [id number] [place] [address]- 8002 Jan, [facility] [place] [facility] [address] [id number] [place] [address]- 3876 08 Jan, 2012 [facility] [place] [facility] [address] [id number] [place] [address]- 5564 Jan, [facility] [place] [facility] [address] [id number] [place] [address]- 2245 06 Jan, 2012 [facility] [place] [facility] [address] [id number] [place] [address]- 0364 Jan, [facility] [place] [facility] [address] [facility] [id number] [place] [address]- 5385 Jan, [facility] [place] [facility] [address] [id number] [place] [address]- 6031 28 Dec, 2011 [facility] [place] [facility] [address] [id number] [place] [address]- 1717 27 Dec, 2011 [facility] [place] [facility] [address] [facility] [id number] [place] [address]- 8991 25 Dec, 2011 [facility] [place] [facility] [address] [facility] [id number] [place] [address]- 5475 23 Dec, 2011 [facility] [place] [facility] [address] [facility] [id number] [place] [address]- 6610 16 Dec, 2011 [facility] [place] [facility] [address] [id number] [place] [address]- 2864 08 Dec, 2011 [facility] [place] [facility] [address] [id number] [place] [address]- 7724 08 Dec, 2011 [facility] [place] [facility] [address] [facility] [id number] [place] [address] 07 Dec, 2011 [facility] [place] [facility] [address] [facility] [id number], [place] [address]- 3574 07 Dec, 2011 [facility] [address] [id number] [place] [address]- 9822 Nov, [facility] [place] [facility] [address] [id number] [place] [address]- 8767 Nov, [facility] [address] [facility] [id number] [place] [address]- 3299 Nov, [facility] [place] [facility] [address] [id number] [place] [address]- 9106 Nov, [facility] [address] [id number] [place] [address]- 2375 Oct, [facility] [place] [facility] [address] [id number] [place] [address]- 4149 Oct, [facility] [address] [facility] [id number] [place] [address]- 2834 Oct, [facility] [place] [facility] [address] [id number] [place] [address]- 4408 Oct, [facility] [address] [facility] [id number] [place] [address]- 2727 Oct, [facility] [place] [facility] [address] [facility] [id number] [place] [address]- 7017 Oct, [facility] [address] [facility] [id number] [place] [address]- 1052 Oct, [facility] [place] [facility] [address] [id number] [place] [address]- 5937 Sep, [facility] [place] [facility] [address] [id number] [place] [address]- 0905 Sep, [facility] [place] [facility] [address] [facility] [id number] [place] [address]- 3895 Sep, [facility] [place] [facility] [address] [facility] [id number] [place] [address]- 7446 Sep, [facility] [place] [facility] [address] [id number] [place] [address]- 3750 Sep, [facility] [place] [facility] [address] [id number] [place] [address]- 1013 Sep, [facility] [place] [facility] [address] [id number] [place] [address]- 9996 Sep, [facility] [place] [facility] [address] [id number] [place] [address]- 3554 Sep, [facility] [place] [facility] [address] [id number] [place] [address]- 1417 Sep, [facility] [place] [facility] [address] [id number] [place] [address]- 9173 Aug, [facility] [place] [facility] [address] [id number] [place] [address]- 2923 Aug, [facility] [place] [facility] [address] [id number] [place] [address]- 1304 Aug, [facility] [place] [facility] [address] [id number] [place] [address]- 8319 May, [facility] [place] [facility] [address] [id number] [place] [address]- 8571 Nov, [facility] [place] [facility] [address] [id number] [place] [address]- 2775 Oct, [facility] [place] [facility] [address] [id number] [place] [address]- 9837 Oct, [facility] [place] [facility] [address] [id number] [place] [address] 2548 Oct, [facility] [place] [facility] [address] [id number] [place] [address]- 0726 Oct, [facility] [place] [facility] [address] [id number] [place] [address]- 1117 Oct, [facility] [place] [facility] [address] [id number] [place] [address]- 3232 Sep, [facility] [id number], [place] [address]- 6063 Sep, [facility] [id number], [place] [address]- 0964 14 Jul, 2010 [facility] [id number], [place] [address]- 5872 Oct, [facility] [id number], [place] [address]- 1354 Oct, [facility] [id number], [place] [address]- 6997 Oct, [facility] [id number] [place] [address]- 6092 Oct, [facility] [id number], [place] [address]- 0873 Sep, [facility] [id number], [place] [address]- 8642 Sep, [facility] [id number], [place] [address]- 2958 Sep, [facility] [id number], [place] [address]- 6206 Sep, [facility] [id number], [place] [address]- 3699 Sep, [facility] [id number] [address]- 2224 Jul, [facility] [address] [id number], [place] [address]- 1045 Apr, [facility] [id number], [place] [address]- 3450 12 Dec, 2008 IMMUNIZATIONS No Known Immunizations [...]
--- OUTSIDE RECORDS SUMMARY | 2018-11-26 16:19 | XMS REPORT ---
Author Author KING FISHMAN Organization [facility] Address [address] [place] [address] Care Team Providers Care Qa Internship Name Role Phone KING FISHMAN Unavailable PROBLEMS Type Condition ICD9-CM Code [id number] Code Onset Dates Condition Status SNOMED Code Problem Essential hypertension I10 Active 36359322 Problem Lumbago with sciatica, left side M54.42 Active 271730490 Problem Acquired hypothyroidism E03.9 Active 422775228 Problem Prediabetes R73.03 Active 950695029 Problem Reactive depression F32.9 Active 73334095 Problem Mixed hyperlipidemia E78.2 Active 910618550 Problem Pain in right ankle and joints of right foot M25.571 Active 00993741028389 Problem Chronic obstructive pulmonary disease, unspecified COPD type J44.9 Active 86745290 Problem Gastroesophageal reflux disease, esophagitis presence not specified K21.9 Active 775596733 Problem Lumbago with sciatica, right side M54.41 Active [id number] Problem Cigarette nicotine dependence without complication F17.210 Active 54019276 Problem Other chronic pain G89.29 Active [id number] ALLERGIES No Information ENCOUNTERS Encounter Location Date Diagnosis [facility] [address], [place] [address] Jul, [facility] [id number] [place] [address] 87552- 1752 Jun, [facility] [id number] [place] [address] 77211- 7591 May, [facility] [id number] [place] [address] 89699- 9213 Apr, [facility] [id number] [place] [address] 40921- 1137 Apr, [place] [id number], [place] [address] Apr, [facility] [id number] [place] [address] 16474- 0469 Apr, [facility] [id number] [place] [address] 89072- 0909 Apr, Pain in right ankle and joints of right foot M25.571 [place] [id number] [place] [address] 62516- 6110 Apr, [place] [id number] [place] [address] 41431- 6677 18 Apr, 2018 Bronchitis J40 ; Pain in right ankle and joints of right foot M25.571 ; Other chronic pain G89.29 ; Prediabetes R73.03 ; Chronic obstructive pulmonary disease, unspecified COPD type J44.9 and Cigarette nicotine dependence without complication F17.210 [facility] [id number] [place] [address] 57085 -4736 13 Apr, 2018 Seasonal allergic rhinitis, unspecified trigger J30.2 [place] [id number] [place] [address] 73942- 5108 08 Apr, 2018 Onychomycosis B35.1 ; Onychocryptosis L60.0 and DM neuro manif type II E11.49 [place] [id number] [place] [address] 17074- 8103 Apr, Reactive depression F32.9 ; Thoracic myofascial strain, initial encounter S29.019A and Leg cramps R25.2 [place] [id number] [place] [address] 11040- 8900 March, [place] [id number] [place] [address] 69211- 2968 March, Type 2 diabetes mellitus with hyperglycemia E11.65 [place] [id number] [place] [address] 77557- 0118 March, Reactive depression F32.9 [place] [id number] [place] [address] 28672- 4945 March, Pain in thoracic spine M54.6 and Other chronic pain G89.29 [place] [address] [address]17- 3009 Feb, [place] [address] 87445- 8335 Jan, Reactive depression F32.9 ; Essential hypertension I10 ; Gastroesophageal reflux disease, esophagitis presence not specified K21.9 ; Lumbago with sciatica, left side M54.42 and Lumbago with sciatica, right side M54.41 [place] [address] 23482- 0221 Jan, Reactive depression F32.9 and Pharyngoesophageal dysphagia R13.[address] [address]- 9803 Jan, [address] 28869- 8596 Jan, Encounter for immunization Z23 [address] 80217- 4880 Jan, Onychomycosis B35.1 and DM neuro manif type II E11.[address] 76763- 4626 Jan, [address] 42147- 9110 Jan, Prediabetes R73.[address] 96538- 3364 Dec, [address] 10818- 5528 Dec, Essential hypertension I10 ; Mixed hyperlipidemia E78.2 ; Acquired hypothyroidism E03.9 ; Reactive depression F32.9 and Prediabetes R73.03 [facility] [id number], [place] [address] 5962 Dec, [facility] [id number] [place] [address] 58887- 9975 Dec, [facility] [id number] [place] [address] 07419- 8499 Dec, DM 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 [facility] [id number] [place] [address] 53854 -4853 08 Dec, 2017 Bruise T14.8XXA ; Type 2 diabetes mellitus with hyperglycemia E11.65 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 [facility] [id number] [place] [address] 74934- 3646 Oct, [place] [id number] [place] [address] 57595- 1179 March, Onychomycosis B35.1 and DM neuro manif type II E11.49 [facility] [id number] [place] [address] 10864- 6625 Jun, [place] [id number] [place] [address] 85373- 3903 Jun, [facility] [id number] [place] [address] 73336- 8767 Jun, COPD with acute exacerbation 491.21 [facility] [id number] [place] [address] 79667- 2903 Apr, [facility] [id number] [place] [address] 90937- 6950 14 Feb, 2015 [facility] [id number] [place] [address] 13665- 5504 Feb, [facility] [id number] [place] [address] 14849- 8818 Jan, [facility] [address] [facility] [id number] [place] [address]- 3970 26 Jan, 2014 [facility] [place] [facility] [address] [id number] [place] [address]- 1541 2015 [facility] [place] [facility] [address] [id number] [place] [address]- 5587 Jan, [facility] [place] [facility] [address] [id number] [place] [address]- 5864 24 Jan, 2015 [facility] [place] [facility] [address] [id number] [place] [address]- 6251 Jan, [facility] [place] [facility] [address] [id number] [place] [address]- 6298 23 Jan, 2015 [facility] [place] [facility] [address] [id number] [place] [address]- 3605 Jan, [facility] [place] [facility] [address] [id number] [place] [address]- 6864 23 Jan, 2014 [facility] [place] [facility] [address] [id number] [place] [address]- 1599 19 Jan, 2015 [facility] [place] [facility] [address] [id number] [place] [address]- 7901 19 Jan, 2015 [facility] [place] [facility] [address] [id number] [place] [address]- 5697 18 Jan, 2015 [facility] [place] [facility] [address] [id number] [place] [address]- 3511 18 Jan, 2014 [facility] [place] [facility] [address] [id number] [place] [address]- 8522 16 Jan, 2014 [facility] [place] [facility] [address] [id number] [place] [address]- 4393 16 Jan, 2014 [facility] [place] [facility] [address] [id number] [place] [address]- 1016 16 Jan, 2015 [facility] [place] [facility] [address] [id number] [place] [address]- 8851 16 Jan, 2015 [facility] [place] [facility] [address] [id number] [place] [address]- 0183 15 Jan, 2015 [facility] [place] [facility] [address] [id number] [place] [address]- 7496 13 Jan, 2015 [facility] [place] [facility] [address] [id number] [place] [address]- 0133 13 Jan, 2015 [facility] [place] [facility] [address] [id number] [place] [address]- 4914 13 Jan, 2015 [facility] [place] [facility] [address] [id number] [place] [address]- 6987 Jan, [facility] [place] [facility] [address] [id number] [place] [address]- 7848 Jan, [facility] [place] [facility] [address] [id number] [place] [address]- 4133 Jan, [facility] [place] [facility] [address] [id number] [place] [address]- 6785 Jan, [facility] [place] [facility] [address] [id number] [place] [address]- 3600 Dec, [facility] [place] [facility] [address] [id number] [place] [address]- 2513 Dec, [facility] [place] [facility] [address] [id number] [place] [address]- 5542 Dec, 2014 [facility] [place] [facility] [address] [id number], [place] [address]- 5473 Dec, 2014 [facility] [place] [facility] [address] [id number] [place] [address]- 2773 Dec, 2014 [facility] [place] [facility] [address] [id number] [place] [address]- 7923 Dec, 2014 [facility] [place] [facility] [address] [id number] [place] [address]- 1278 Dec, 2014 [facility] [place] [facility] [address] [id number] [place] [address]- 6792 20 Dec, 2014 [facility] [place] [facility] [address] [id number] [place] [address]- 0517 Dec, [facility] [place] [facility] [address] [id number] [place] [address]- 8378 Dec, [facility] [place] [facility] [address] [id number] [place] [address]- 5795 Dec, [facility] [place] [facility] [address] [id number] [place] [address]- 0129 Dec, [facility] [place] [facility] [address] [id number] [place] [address]- 7085 Nov, [facility] [place] [facility] [address] [id number] [place] [address]- 4579 Nov, [facility] [place] [facility] [address] [id number] [place] [address]- 4722 Nov, [facility] [place] [facility] [address] [id number] [place] [address]- 5215 Nov, [facility] [place] [facility] [address] [id number] [place] [address]- 6758 Nov, [facility] [place] [facility] [address] [id number] [place] [address]- 9829 Nov, [facility] [place] [facility] [address] [id number] [place] [address]- 0827 Nov, [facility] [place] [facility] [address] [id number] [place] [address]- 4559 Nov, [facility] [place] [facility] [address] [id number] [place] [address]- 9173 Nov, [facility] [place] [facility] [address] [id number] [place] [address]- 5076 Nov, [facility] [place] [facility] [address] [id number] [place] [address]- 0519 Nov, [facility] [place] [facility] [address] [id number] [place] [address]- 4821 Nov, [facility] [place] [facility] [address] [id number] [place] [address]- 2956 Oct, [facility] [place] [facility] [address] [id number] [place] 0466 Oct, [facility] [place] [facility] [address] [id number] [place] [address]- 6031 Oct, [facility] [place] [facility] [address] [id number] [place] [address]- 2502 Oct, [facility] [place] [facility] [address] [id number] [place] [address]- 3802 Oct, [facility] [place] [facility] [address] [id number] [place] [address]- 0530 Oct, [facility] [place] [facility] [address] [id number] [place] [address]- 6156 Oct, [facility] [place] [facility] [address] [id number] [place] [address]- 9842 Oct, [facility] [place] [facility] [address] [id number] [place] [address]- 1324 Oct, [facility] [place] [facility] [address] [id number] [place] [address]- 1138 17 Oct, 2014 [facility] [place] [facility] [address] [id number] [place] [address]- 8787 16 Oct, 2014 [facility] [place] [facility] [address] [id number] [place] [address]- 1266 16 Oct, 2014 [facility] [place] [facility] [address] [id number] [place] [address]- 6556 15 Oct, 2014 [facility] [place] [facility] [address] [id number] [place] [address]- 6446 15 Oct, 2014 [facility] [place] [facility] [address] [id number] [place] [address]- 0349 08 Oct, 2014 [facility] [place] [facility] [address] [id number] [place] [address]- 3692 Sep, [facility] [place] [facility] [address] [id number] [place] [address]- 1494 Sep, [facility] [place] [facility] [address] [id number] [place] [address]- 8931 Sep, [facility] [place] [facility] [address] [id number] [place] [address]- 2385 Sep, [facility] [place] [facility] [address] [id number] [place] [address]- 1966 Aug, [facility] [place] [facility] [address] [id number] [place] [address]- 5602 Aug, [facility] [place] [facility] [address] [id number] [place] [address]- 5567 Aug, [facility] [place] [facility] [address] [id number] [place] [address]- 9420 Aug, [facility] [place] [facility] [address] [id number] [place] [address]- 9643 Aug, [facility] [place] [facility] [address] [facility] [id number] [place] [address]- 2139 Aug, [facility] [place] [facility] [address] [id number] [place] [address]- 8028 29 Jul, 2014 [facility] [place] [facility] [address] [id number] [place] [address]- 1633 29 Jul, 2013 [facility] [place] [facility] [address] [id number] [place] [address]- 5972 15 Jul, 2014 [facility] [place] [facility] [address] [id number] [place] [address]- 7138 15 Jul, 2013 [facility] [place] [facility] [address] [id number] [place] [address]- 8300 Jul, [facility] [place] [facility] [address] [id number] [place] [address]- 1850 Jul, [facility] [place] [facility] [address] [id number] [place] [address]- 5310 Jun, [facility] [place] [facility] [address] [id number] [place] [address]- 4426 Jun, [facility] [place] [facility] [address] [id number] [place] [address]- 9397 Jun, [facility] [place] [facility] [address] [id number] [place] [address]- 7223 Jun, [facility] [place] [facility] [address] [id number] [place] [address]- 1407 Jun, [facility] [place] [facility] [address] [id number] [place] [address]- 1869 Jun, [facility] [place] [facility] [address] [id number] [place] [address]- 2790 Jun, [facility] [place] [facility] [address] [id number] [place] [address]- 8439 May, [facility] [place] [facility] [address] [id number] [place] [address]- 1116 May, [facility] [place] [facility] [address] [id number] [place] [address]- 5599 May, [facility] [place] [facility] [address] [id number] [place] [address]- 1056 May, [facility] [place] [facility] [address] [id number] [place] [address]- 0720 May, [facility] [place] [facility] [address] [id number] [place] [address]- 1519 May, [facility] [place] [facility] [address] [id number] [place] [address]- 1210 May, [facility] [place] [facility] [address] [id number] [place] [address]- 7406 May, [facility] [place] [facility] [address] [id number] [place] [address]- 1840 May, [facility] [place] [facility] [address] [id number] [place] [address]- 0447 May, [facility] [place] [facility] [address] [id number] [place] [address]- 0396 May, [facility] [place] [facility] [address] [id number] [place] [address]- 7236 May, [facility] [place] [facility] [address] [id number] [place] [address]- 0050 Apr, [facility] [place] [facility] [address] [id number] [place] [address]- 4700 Apr, [facility] [place] [facility] [address] [id number] [place] [address]- 4799 Apr, [facility] [place] [facility] [address] [id number] [place] [address]- 2151 Apr, [facility] [place] [facility] [address] [id number] [place] [address]- 3301 Apr, [facility] [place] [facility] [address] [id number] [place] [address]- 2421 Apr, [facility] [place] [facility] [address] [id number] [place] [address]- 2699 Apr, [facility] [place] [facility] [address] [id number] [place] [address]- 8110 Apr, [facility] [place] [facility] [address] [id number] [place] [address]- 5588 Apr, [facility] [place] [facility] [address] [id number] [place] [address]- 4474 Apr, [facility] [place] [facility] [address] [id number] [place] [address]- 2789 March, [facility] [place] [facility] [address] [id number] [place] [address]- 9386 March, [facility] [place] [facility] [address] [id number] [place] [address]- 4533 March, [facility] [place] [facility] [address] [id number] [place] [address]- 6744 March, [facility] [place] [facility] [address] [id number] [place] [address]- 2952 March, [facility] [place] [facility] [address] [id number] [place] [address]- 6942 March, [facility] [place] [facility] [address] [id number] [place] [address]- 8289 Feb, [facility] [place] [facility] [address] [id number] [place] [address]- 2727 Feb, [facility] [place] [facility] [address] [id number] [place] [address]- 5524 Feb, [facility] [place] [facility] [address] [id number] [place] [address]- 4720 Feb, [facility] [place] [facility] [address] [id number] [place] [address]- 6204 Feb, [facility] [place] [facility] [address] [id number] [place] [address]- 0400 Feb, [facility] [place] [facility] [address] [id number] [place] [address]- 1801 Feb, [facility] [place] [facility] [address] [id number] [place] [address]- 6335 Feb, [facility] [place] [facility] [address] [id number] [place] [address]- 1767 Feb, [facility] [place] [facility] [address] [id number] [place] [address]- 3270 Feb, [facility] [place] [facility] [address] [id number] [place] [address]- 0964 Jan, [facility] [place] [facility] [address] [id number] [place] [address]- 5784 Jan, [facility] [place] [facility] [address] [id number] [place] [address]- 7489 Jan, [facility] [place] [facility] [address] [id number] [place] [address]- 2142 Jan, [facility] [place] [facility] [address] [id number] [place] [address]- 8517 Jan, [facility] [place] [facility] [address] [id number] [place] [address]- 3474 Jan, [facility] [place] [facility] [address] [id number] [place] [address]- 5695 Jan, [facility] [place] [facility] [address] [facility] [id number] [place] [address]- 9440 Jan, [facility] [place] [facility] [address] [id number] [place] [address]- 5756 Dec, [facility] [place] [facility] [address] [id number] [place] [address]- 9090 Dec, [facility] [place] [facility] [address] [id number] [place] [address]- 6807 Dec, [facility] [place] [facility] [address] [id number] [place] [address]- 4872 Dec, [facility] [place] [facility] [address] [id number] [place] [address]- 1131 Dec, [facility] [place] [facility] [address] [id number] [place] [address]- 9978 Dec, [facility] [place] [facility] [address] [id number] [place] [address]- 8549 Dec, [facility] [place] [facility] [address] [id number] [place] [address] Dec, [facility] [place] [facility] [address] [id number] [place] [address] Nov, [facility] [address] [id number] [place] [address] Nov, [facility] [place] [facility] [address] [id number] [place] [address] Nov, [facility] [address] [id number] [place] [address] Nov, [facility] [place] [facility] [address] [id number] [place] [address] Nov, [facility] [address] [id number] [place] [address] Nov, [facility] [place] [facility] [address] [id number] [place] [address] Nov, [facility] [address] [id number] [place] [address] Nov, [facility] [address] [id number] [place] [address] Nov, [facility] [place] [facility] [address] [id number] [place] [address] Nov, [facility] [address] [id number] [place] [address] Nov, [facility] [place] [facility] [address] [id number] [place] [address] Oct, [facility] [place] [facility] [address] [id number] [place] [address] Oct, [facility] [place] [facility] [address] [id number] [place] [address] Oct, [facility] [place] [facility] [address] [id number] [place] [address] Oct, [facility] [place] [facility] [address] [id number] [place] [address] Sep, [facility] [place] [facility] [address] [id number] [place] [address] Sep, [facility] [place] [facility] [address] [id number] [place] [address] Sep, [facility] [place] [facility] [address] [id number] [place] [address] Sep, [facility] [place] [facility] [address] [id number] [place] [address] Aug, [facility] [place] [facility] [address] [id number] [place] [address] Aug, [facility] [place] [facility] [address] [id number] [place] [address] 2013 Aug, [facility] [place] [facility] [address] [id number] [place] [address] Aug, [facility] [place] [facility] [address] [id number], [place] [address] Aug, [facility] [place] [facility] [address] [id number] [place] [address] Aug, [facility] [place] [facility] [address] [id number], [place] [address] Aug, [facility] [place] [facility] [address] [id number], [place] [address] Aug, [facility] [place] [facility] [address] [id number], [place] [address] Jul, [facility] [place] [facility] [address] [id number] [place] [address] Jul, [facility] [place] [facility] [address] [id number], [place] [address] Jul, [facility] [place] [facility] [address] [id number] [place] [address] Jul, [facility] [place] [facility] [address] [id number] [place] [address] 24 Sep, 2012 [facility] [place] [facility] [address] [id number] [place] [address] 23 Sep, 2012 [facility] [place] [facility] [address] [id number] [place] [address]46 19 Jul, 2012 [facility] [place] [facility] [address] [id number] [place] [address] 18 Sep, 2012 [facility] [place] [facility] [address] [id number] [place] [address] 17 Sep, 2012 [facility] [place] [facility] [address] [id number] [place] [address]- [address] 16 Jul, 2012 [facility] [place] [facility] [address] [id number] [place] [address] 13 Jul, 2012 [facility] [place] [facility] [address] [id number] [place] [address]- [address] 13 Jul, 2012 [facility] [place] [facility] [address] [id number] [place] [address] 12 Jul, 2012 [facility] [place] [facility] [address] [id number] [place] [address]- [address] 11 Jul, 2012 [facility] [place] [facility] [address] [id number] [place] [address]- [address] 04 Jul, 2013 [facility] [place] [facility] [address] [id number] [place] [address] 30 Jun, 2013 [facility] [place] [facility] [address] [id number] [place] [address] Jun, [facility] [place] [facility] [address] [id number] [place] [address]- 118[address] Jun, [facility] [place] [facility] [address] [id number] [place] [address] May, [facility] [place] [facility] [address] [id number] [place] [address] May, [facility] [place] [facility] [address] [id number] [place] [address] May, [facility] [address] [id number] [place] [address]698 May, [facility] [place] [facility] [address] [id number] [place] [address] Apr, [facility] [place] [facility] [address] [id number] [place] [address] Apr, [facility] [place] [facility] [address] [id number] [place] [address] Apr, [facility] [place] [facility] [address] [id number] [place] [address] Apr, [facility] [address] [id number] [place] [address] March, [facility] [address] [address] [id number] [place] [address] March, [facility] [address] [id number] [place] [address] March, [facility] [address] [id number] [place] [address] Feb, [facility] [place] [facility] [address] [id number] [place] [address] Feb, [facility] [place] [facility] [address] [id number] [place] [address] Jan, [facility] [place] [facility] [address] [id number] [place] [address] Jan, [facility] [place] [facility] [address] [id number] [place] [address] Jan, [facility] [place] [facility] [address] [id number] [place] [address] Jan, [facility] [place] [facility] [address] [id number] [place] [address] 9007 Jan, [facility] [address] [id number] [place] [address] Dec, [facility] [address] [id number] [place] [address]- 7246 Dec, [facility] [address] [id number] [place] [address] Dec, [facility] [address] [id number] [place] [address]- 9262 Dec, [facility] [address] [id number] [place] [address] 4832 Dec, [facility] [address] [id number] [place] [address]- 5226 Dec, [facility] [address] [id number] [place] [address] Dec, [facility] [address] [id number] [place] [address]- 3797 Dec, [facility] [address] [id number] [place] [address] 2091 Nov, [facility] [address] [facility] [id number] [place] [address] Nov, [facility] [address] [id number] [place] [address] 6104 Nov, [facility] [place] [facility] [address] [id number], [place] [address] Nov, [facility] [place] [facility] [address] [id number] [place] [address]- 9053 Nov, [facility] [place] [facility] [address] [facility] [id number] [place] [address]- 3368 Nov, [facility] [place] [facility] [address] [facility] [id number], [place] [address]- 1611 Nov, [facility] [place] [facility] [address] [id number] [place] [address] 40[address] Oct, [facility] [place] [facility] [address] [id number] [place] [address]- 3202 Oct, [facility] [place] [facility] [address] [id number] [place] [address]- 4646 Oct, [facility] [place] [facility] [address] [id number] [place] [address]- 7996 Oct, [facility] [place] [facility] [address] [id number] [place] [address]- 1584 Oct, [facility] [place] [facility] [address] [id number] [place] [address]- 3221 Oct, [facility] [place] [facility] [address] [id number] [place] [address]- 7491 Oct, [facility] [place] [facility] [address] [id number] [place] [address]- 9929 Oct, [facility] [place] [facility] [address] [id number] [place] [address]- 1195 Sep, [facility] [place] [facility] [address] [id number] [place] [address]- 8014 Sep, [facility] [place] [facility] [address] [id number] [place] [address]- 2271 Sep, [facility] [place] [facility] [address] [id number] [place] [address]- 5028 Sep, [facility] [place] [facility] [address] [id number] [place] [address]- 6367 Sep, [facility] [place] [facility] [address] [id number] [place] [address]- 4910 Sep, [facility] [place] [facility] [address] [id number] [place] [address]- 4423 Sep, [facility] [place] [facility] [address] [id number] [place] [address]- 0[address] Sep, [facility] [place] [facility] [address] [id number] [place] [address]- 4806 Sep, [facility] [place] [facility] [address] [id number] [place] [address]- 4282 Sep, [facility] [place] [facility] [address] [facility] [id number] [place] [address]- 6850 Sep, [facility] [place] [facility] [address] [id number], [place] [address]- 3[address] Sep, [facility] [place] [facility] [address] [id number] [place] [address]- 4644 Sep, [facility] [place] [facility] [address] [facility] [id number], [place] [address]- 5537 Sep, [facility] [place] [facility] [address] [facility] [id number], [place] [address]- 6373 Sep, [facility] [place] [facility] [address] [id number], [place] [address]- 0916 Sep, [facility] [place] [facility] [address] [id number], [place] [address]- 8848 Sep, [facility] [place] [facility] [address] [facility] [id number], [place] [address]- 7570 Sep, [facility] [place] [facility] [address] [id number], [place] [address]- 9427 Sep, [facility] [place] [facility] [address] [id number], [place] [address] 1980 Sep, [facility] [place] [facility] [address] [id number], [place] [address]- 0714 Aug, [facility] [place] [facility] [address] [facility] [id number], [place] [address]- 4853 Aug, [facility] [place] [facility] [address] [facility] [id number], [place] [address]- 1674 Aug, [facility] [place] [facility] [address] [id number] [place] [address]- 4851 27 Aug, 2012 [facility] [place] [facility] [address] [id number] [place] [address]- 4967 27 Aug, 2012 [facility] [place] [facility] [address] [id number] [place] [address]- 3186 18 Aug, 2012 [facility] [place] [facility] [address] [id number] [place] [address]- 1731 18 Aug, 2012 [facility] [place] [facility] [address] [id number] [place] [address]- 5355 17 Aug, 2012 [facility] [place] [facility] [address] [id number] [place] [address]- 9089 16 Aug, 2012 [facility] [place] [facility] [address] [id number] [place] [address]- 5225 16 Aug, 2012 [facility] [place] [facility] [address] [id number] [place] [address]- 9379 15 Aug, 2012 [facility] [place] [facility] [address] [id number] [place] [address]- 3008 09 Aug, 2012 [facility] [place] [facility] [address] [id number] [place] [address]- 0131 05 Aug, 2012 [facility] [place] [facility] [address] [id number] [place] [address]- 0511 05 Aug, 2012 [facility] [place] [facility] [address] [id number] [place] [address]- 6203 04 Aug, 2012 [facility] [place] [facility] [address] [id number] [place] [address]- 6951 14 Jul, 2012 [facility] [place] [facility] [address] [id number] [place] [address]- 9083 10 Jul, 2012 [facility] [place] [facility] [address] [id number] [place] [address]- 7484 31 Jun, 2012 [facility] [place] [facility] [address] [id number] [place] [address]- 8212 Jun, [facility] [place] [facility] [address] [id number] [place] [address]- 1807 May, [facility] [place] [facility] [address] [id number] [place] [address] May, [facility] [place] [facility] [address] [id number] [place] [address]- 4740 May, [facility] [place] [facility] [address] [id number] [place] [address]- 3461 May, [facility] [address] [id number] [place] [address]- 4331 May, [facility] [place] [facility] [address] [id number] [place] [address]- 9242 May, [facility] [address] [id number] [place] [address]- 7872 Apr, [facility] [place] [facility] [address] [id number] [place] [address]- 3572 Apr, [facility] [place] [facility] [address] [id number] [place] [address]- 6327 March, [facility] [place] [facility] [address] [id number] [place] [address]- 6718 March, [facility] [place] [facility] [address] [id number] [place] [address]- 0227 March, [facility] [place] [facility] [address] [id number] [place] [address]- 9649 March, [facility] [place] [facility] [address] [id number] [place] [address]- 9732 March, [facility] [place] [facility] [address] [id number] [place] [address]- 0276 March, [facility] [place] [facility] [address] [id number] [place] [address]- 5919 Feb, [facility] [place] [facility] [address] [id number] [place] [address]- 2652 Feb, [facility] [address] [id number] [place] [address]- 3183 Feb, [facility] [place] [facility] [address] [id number] [place] [address]- 6696 Feb, [facility] [place] [facility] [address] [id number] [place] [address]- 4086 Feb, [facility] [place] [facility] [address] [id number] [place] [address]- 6617 Feb, [facility] [place] [facility] [address] [id number] [place] [address]- 2126 Feb, [facility] [place] [facility] [address] [id number] [place] [address]- 6605 Feb, [facility] [address] [id number] [place] [address]- 2010 Feb, [facility] [place] [facility] [address] [id number] [place] [address]- 0196 30 Jan, 2012 [facility] [place] [facility] [address] [id number] [place] [address]- 2321 27 Jan, 2012 [facility] [place] [facility] [address] [id number] [place] [address]- 8439 Jan, [facility] [place] [facility] [address] [id number] [place] [address]- 2148 Jan, [facility] [place] [facility] [address] [id number] [place] [address]- 6331 21 Jan, 2012 [facility] [place] [facility] [address] [id number] [place] [address]- 8471 20 Jan, 2012 [facility] [place] [facility] [address] [id number] [place] [address]- 7786 14 Jan, 2012 [facility] [place] [facility] [address] [id number] [place] [address]- 1218 09 Jan, 2012 [facility] [place] [facility] [address] [id number] [place] [address]- 0933 09 Jan, 2012 [facility] [place] [facility] [address] [id number] [place] [address]- 7839 08 Jan, 2012 [facility] [place] [facility] [address] [id number] [place] [address]- 1996 07 Jan, 2012 [facility] [place] [facility] [address] [id number] [place] [address]- 4472 06 Jan, 2012 [facility] [place] [facility] [address] [id number] [place] [address]- 7566 02 Jan, 2012 [facility] [place] [facility] [address] [id number] [place] [address]- 0832 02 Jan, 2012 [facility] [place] [facility] [address] [facility] [id number] [place] [address]- 0965 28 Dec, 2011 [facility] [place] [facility] [address] [id number] [place] [address]- 7621 27 Dec, 2011 [facility] [place] [facility] [address] [id number] [place] [address]- 7067 25 Dec, 2011 [facility] [place] [facility] [address] [facility] [id number] [place] [address]- 7616 23 Dec, 2011 [facility] [place] [facility] [address] [facility] [id number] [place] [address]- 6748 16 Dec, 2011 [facility] [place] [facility] [address] [facility] [id number], [place] [address]- 0143 08 Dec, 2011 [facility] [place] [facility] [address] [facility] [id number] [place] [address]- 3102 08 Dec, 2011 [facility] [place] [facility] [address] [id number] [place] [address]- 1675 07 Dec, 2011 [facility] [place] [facility] [address] [facility] [id number] [place] [address]- 2405 07 Dec, 2011 [facility] [place] [facility] [address] [facility] [id number] [place] [address]- 5473 Nov, [facility] [address] [id number] [place] [address]- 0311 Nov, [facility] [place] [facility] [address] [id number] [place] [address]- 4943 Nov, [facility] [place] [facility] [address] [facility] [id number] [place] [address]- 0100 Nov, [facility] [place] [facility] [address] [id number] [place] [address]- 2609 Oct, [facility] [place] [facility] [address] [id number] [place] [address]- 6685 Oct, [facility] [place] [facility] [address] [id number] [place] [address]- 3824 Oct, [facility] [address] [facility] [id number] [place] [address]- 8465 Oct, [facility] [place] [facility] [address] [id number] [place] [address]- 8823 Oct, [facility] [place] [facility] [address] [facility] [id number] [place] [address]- 0170 Oct, [facility] [place] [facility] [address] [facility] [id number] [place] [address]- 9900 Oct, [facility] [place] [facility] [address] [id number] [place] [address]- 9593 Sep, [facility] [place] [facility] [address] [id number] [place] [address]- 7146 Sep, [facility] [place] [facility] [address] [id number] [place] [address]- 1533 Sep, [facility] [place] [facility] [address] [id number] [place] [address]- 2077 Sep, [facility] [place] [facility] [address] [facility] [id number] [place] [address]- 8225 Sep, [facility] [place] [facility] [address] [id number] [place] [address]- 1698 Sep, [facility] [place] [facility] [address] [id number] [place] 29[address] Sep, [facility] [place] [facility] [address] [id number] [place] [address]- 4176 Sep, [facility] [place] [facility] [address] [id number] [place] [address]- 7621 Sep, [facility] [place] [facility] [address] [id number] [place] [address]- 7582 Aug, [facility] [place] [facility] [address] [id number] [place] [address]- 9739 Aug, [facility] [place] [facility] [address] [id number] [place] [address]- 1590 Aug, [facility] [place] [facility] [address] [id number] [place] [address]- 5936 May, [facility] [place] [facility] [address] [id number] [place] [address]- 3114 Nov, [facility] [place] [facility] [address] [id number] [place] [address]- 8888 Oct, [facility] [place] [facility] [address] [id number] [place] [address]- 3527 Oct, [facility] [place] [facility] [address] [id number] [place] [address]- 3152 Oct, [facility] [place] [facility] [address] [id number] [place] [address] 2547 Oct, [facility] [place] [facility] [address] [id number] [place] [address]- 8096 Oct, [facility] [place] [facility] [address] [id number] [place] [address]- 5976 Sep, [facility] [place] [facility] [address] [id number] [place] [address]- 3699 Sep, [facility] [address] [id number], [place] [address]- 8617 14 Jul, 2010 [facility] [id number], [place] [address]- 8816 Oct, [facility] [id number], [place] [address]- 6808 Oct, [facility] [id number], [place] [address]- 6996 Oct, [facility] [id number], [place] [address]- 3288 Oct, [facility] [id number] [place] [address]- 5989 Sep, [facility] [id number], [place] [address]- 5740 Sep, [facility] [id number], [place] [address]- 4398 Sep, [facility] [id number] 5408 Sep, [facility] [id number], [place] [address]- 7938 Sep, [facility] [address] [id number], [place] [address]- 5663 Jul, [facility] [address] [id number], [place] [address]- 6663 Apr, [facility] [address] [id number], [place] [address]- 3667 Dec, IMMUNIZATIONS No Known Immunizations SOCIAL HISTORY [...]
--- OUTSIDE RECORDS SUMMARY | 2018-11-26 16:20 | XMS REPORT ---
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 Name Role Phone KING FISHMAN Unavailable PROBLEMS Type Condition ICD9-CM Code ROO05-UW Code Onset Dates Condition Status SNOMED Code Problem Essential hypertension I10 Active 84301770 Problem Lumbago with sciatica, left side M54.42 Active 514167032 Problem Acquired hypothyroidism E03.9 Active 986656634 Problem Prediabetes R73.03 Active 656441188 Problem Reactive depression F32.9 Active 19140812 Problem Mixed hyperlipidemia E78.2 Active 658641753 Problem Pain in right ankle and joints of right foot M25.571 Active 58935364776268 Problem Chronic obstructive pulmonary disease, unspecified COPD type J44.9 Active 89127830 Problem Gastroesophageal reflux disease, esophagitis presence not specified K21.9 Active 952941754 Problem Lumbago with sciatica, right side M54.41 Active [id number] Problem Cigarette nicotine dependence without complication F17.210 Active 81833213 Problem Other chronic pain G89.29 Active 88848527 ALLERGIES No Information ENCOUNTERS Encounter Location Date Diagnosis [facility] [address] [address] Jul, [facility] [id number] [place] [address] 82541- 2447 Jun, [facility] [id number] [place] [address] 41611- 8507 May, [facility] [id number] [place] [address] 02923- 6109 Apr, [facility] [id number] [place] [address] 03881- 0297 Apr, [place] [id number] [address] Apr, [facility] [id number] [place] [address] 76192- 9781 Apr, [facility] [id number] [place] [address] 86823- 4969 Apr, Pain in right ankle and joints of right foot M25.571 [place] [id number] [place] [address] 55901- 1868 Apr, [place] [id number] [place] [address] 76853- 1426 18 Apr, 2018 Bronchitis J40 ; Pain in right ankle and joints of right foot M25.571 ; Other chronic pain G89.29 ; Prediabetes R73.03 ; Chronic obstructive pulmonary disease, unspecified COPD type J44.9 and Cigarette nicotine dependence without complication F17.210 [facility] WALK IN [facility] [id number] [place] [address] 28407 -5225 13 Apr, 2018 Seasonal allergic rhinitis, unspecified trigger J30.2 [place] [id number] [place] [address] 38705- 8159 08 Apr, 2018 Onychomycosis B35.1 ; Onychocryptosis L60.0 and DM neuro manif type II E11.49 [place] [id number] [place] [address] 82367- 5093 Apr, Reactive depression F32.9 ; Thoracic myofascial strain, initial encounter S29.019A and Leg cramps R25.2 [place] [id number] [place] [address] 42096- 9732 March, [place] [id number] [place] [address] 73048- 3461 March, Type 2 diabetes mellitus with hyperglycemia E11.65 [place] [id number] [place] [address] 94943- 8600 March, Reactive depression F32.9 [place] [id number] [place] [address] 19080- 5385 March, Pain in thoracic spine M54.6 and Other chronic pain G89.29 [place] [address] [address]2333- 5406 Feb, [place] [address] 57069- 7228 Jan, Reactive depression F32.9 ; Essential hypertension I10 ; Gastroesophageal reflux disease, esophagitis presence not specified K21.9 ; Lumbago with sciatica, left side M54.42 and Lumbago with sciatica, right side M54.41 [place] [address] 80902- 3286 Jan, Reactive depression F32.9 and Pharyngoesophageal dysphagia R13.[address] [address]09- 1184 Jan, [address] 40393- 7917 Jan, Encounter for immunization Z23 [address] 08839- 5645 Jan, Onychomycosis B35.1 and DM neuro manif type II E11.[address] 30868- 2816 Jan, [address] 67681- 3822 Jan, Prediabetes R73.[address] 70271- 5614 Dec, [address] 26001- 6638 Dec, Essential hypertension I10 ; Mixed hyperlipidemia E78.2 ; Acquired hypothyroidism E03.9 ; Reactive depression F32.9 and Prediabetes R73.03 [facility] [id number] [address] 0744 Dec, [facility] [id number] [place] [address] 84385- 9613 Dec, [facility] [id number] [place] [address] 92499- 3596 Dec, DM 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 [facility] WALK IN [facility] [address] [place] [address] 94713 -8327 08 Dec, 2017 Bruise T14.8XXA ; Type 2 diabetes mellitus with hyperglycemia E11.65 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 [facility] [id number] [place] [address] 98533- 2301 Oct, [place] [id number] [place] [address] 14222- 2668 March, Onychomycosis B35.1 and DM neuro manif type II E11.49 [facility] [id number] [place] [address] 36286- 9672 Jun, [place] [id number] [place] [address] 50267- 3353 Jun, [facility] [id number] [place] [address] 83290- 0836 Jun, COPD with acute exacerbation 491.21 [facility] [id number] [place] [address] 26975- 0592 Apr, [facility] [id number] [place] [address] 78797- 8508 14 Feb, 2015 [facility] [id number] [place] [address] 99754- 1991 Feb, [facility] [id number] [place] [address] 67444- 0030 Jan, [facility] [address] [facility] [id number] [place] [address]- 3281 26 Jan, 2014 [facility] [place] [facility] [address] [id number] [place] [address]- 4455 2015 [facility] [place] [facility] [address] [id number] [place] [address]- 7457 Jan, [facility] [place] [facility] [address] [id number] [place] [address]- 7986 24 Jan, 2015 [facility] [place] [facility] [address] [id number] [place] [address]- 6470 Jan, [facility] [place] [facility] [address] [id number] [place] [address]- 2888 23 Jan, 2015 [facility] [place] [facility] [address] [id number] [place] [address]- 5660 Jan, [facility] [place] [facility] [address] [id number] [place] [address]- 4892 23 Jan, 2014 [facility] [place] [facility] [address] [id number] [place] [address]- 7090 19 Jan, 2015 [facility] [place] [facility] [address] [id number] [place] [address]- 4393 19 Jan, 2015 [facility] [place] [facility] [address] [id number] [place] [address]- 9049 18 Jan, 2015 [facility] [place] [facility] [address] [id number] [place] [address]- 2939 18 Jan, 2014 [facility] [place] [facility] [address] [id number] [place] [address]- 1188 16 Jan, 2014 [facility] [place] [facility] [address] [id number] [place] [address]- 9078 16 Jan, 2014 [facility] [place] [facility] [address] [id number] [place] [address]- 6006 16 Jan, 2015 [facility] [place] [facility] [address] [id number] [place] [address]- 3063 16 Jan, 2015 [facility] [place] [facility] [address] [id number] [place] [address]- 1647 15 Jan, 2015 [facility] [place] [facility] [address] [id number] [place] [address]- 0013 13 Jan, 2015 [facility] [place] [facility] [address] [id number] [place] [address]- 1552 13 Jan, 2015 [facility] [place] [facility] [address] [id number] [place] [address]- 3234 13 Jan, 2015 [facility] [place] [facility] [address] [id number] [place] [address]- 7032 Jan, [facility] [place] [facility] [address] [id number] [place] [address]- 5522 Jan, [facility] [place] [facility] [address] [id number] [place] [address]- 2733 Jan, [facility] [place] [facility] [address] [id number] [place] [address]- 3124 Jan, [facility] [place] [facility] [address] [id number] [place] [address]- 2214 Dec, [facility] [place] [facility] [address] [id number] [place] [address]- 8902 Dec, [facility] [place] [facility] [address] [id number] [place] [address]- 1783 Dec, 2014 [facility] [place] [facility] [address] [id number] [address]- 9033 Dec, 2014 [facility] [place] [facility] [address] [id number] [place] [address]- 5685 Dec, 2014 [facility] [place] [facility] [address] [id number] [place] [address]- 1698 Dec, 2014 [facility] [place] [facility] [address] [id number] [place] [address]- 6751 Dec, 2014 [facility] [place] [facility] [address] [id number] [place] [address]- 5103 20 Dec, 2014 [facility] [place] [facility] [address] [id number] [place] [address]- 9572 Dec, [facility] [place] [facility] [address] [id number] [place] [address]- 9571 Dec, [facility] [place] [facility] [address] [id number] [place] [address]- 3685 Dec, [facility] [place] [facility] [address] [id number] [place] [address]- 3982 Dec, [facility] [place] [facility] [address] [id number] [place] [address]- 8376 Nov, [facility] [place] [facility] [address] [id number] [place] [address]- 3603 Nov, [facility] [place] [facility] [address] [id number] [place] [address]- 4108 Nov, [facility] [place] [facility] [address] [id number] [place] [address]- 4494 Nov, [facility] [place] [facility] [address] [id number] [place] [address]- 6179 Nov, [facility] [place] [facility] [address] [id number] [place] [address]- 1268 Nov, [facility] [place] [facility] [address] [id number] [place] [address]- 5756 Nov, [facility] [place] [facility] [address] [id number] [place] [address]- 2719 Nov, [facility] [place] [facility] [address] [id number] [place] [address]- 9636 Nov, [facility] [place] [facility] [address] [id number] [place] [address]- 4655 Nov, [facility] [place] [facility] [address] [id number] [place] [address]- 1737 Nov, [facility] [place] [facility] [address] [id number] [place] [address]- 0856 Nov, [facility] [place] [facility] [address] [id number] [place] [address]- 0696 Oct, [facility] [place] [facility] [address] [id number] [place] 3626 Oct, [facility] [place] [facility] [address] [id number] [place] [address]- 5605 Oct, [facility] [place] [facility] [address] [id number] [place] [address]- 6268 Oct, [facility] [place] [facility] [address] [id number] [place] [address]- 0630 Oct, [facility] [place] [facility] [address] [id number] [place] [address]- 8865 Oct, [facility] [place] [facility] [address] [id number] [place] [address]- 4659 Oct, [facility] [place] [facility] [address] [id number] [place] [address]- 7213 Oct, [facility] [place] [facility] [address] [id number] [place] [address]- 6781 Oct, [facility] [place] [facility] [address] [id number] [place] [address]- 0009 17 Oct, 2014 [facility] [place] [facility] [address] [id number] [place] [address]- 8643 16 Oct, 2014 [facility] [place] [facility] [address] [id number] [place] [address]- 3586 16 Oct, 2014 [facility] [place] [facility] [address] [id number] [place] [address]- 3573 15 Oct, 2014 [facility] [place] [facility] [address] [id number] [place] [address]- 0256 15 Oct, 2014 [facility] [place] [facility] [address] [id number] [place] [address]- 2102 08 Oct, 2014 [facility] [place] [facility] [address] [id number] [place] [address]- 7875 Sep, [facility] [place] [facility] [address] [id number] [place] [address]- 0176 Sep, [facility] [place] [facility] [address] [id number] [place] [address]- 0868 Sep, [facility] [place] [facility] [address] [id number] [place] [address]- 0390 Sep, [facility] [place] [facility] [address] [id number] [place] [address]- 3851 Aug, [facility] [place] [facility] [address] [id number] [place] [address]- 2283 Aug, [facility] [place] [facility] [address] [id number] [place] [address]- 5671 Aug, [facility] [place] [facility] [address] [id number] [place] [address]- 2538 Aug, [facility] [place] [facility] [address] [id number] [place] [address]- 3599 Aug, [facility] [place] [facility] [address] [facility] [id number] [place] [address]- 6272 Aug, [facility] [place] [facility] [address] [id number] [place] [address]- 0340 29 Jul, 2014 [facility] [place] [facility] [address] [id number] [place] [address]- 6575 29 Jul, 2013 [facility] [place] [facility] [address] [id number] [place] [address]- 1208 15 Jul, 2014 [facility] [place] [facility] [address] [id number] [place] [address]- 9991 15 Jul, 2013 [facility] [place] [facility] [address] [id number] [place] [address]- 5377 Jul, [facility] [place] [facility] [address] [id number] [place] [address]- 4493 Jul, [facility] [place] [facility] [address] [id number] [place] [address]- 2486 Jun, [facility] [place] [facility] [address] [id number] [place] [address]- 8117 Jun, [facility] [place] [facility] [address] [id number] [place] [address]- 2827 Jun, [facility] [place] [facility] [address] [id number] [place] [address]- 7793 Jun, [facility] [place] [facility] [address] [id number] [place] [address]- 9403 Jun, [facility] [place] [facility] [address] [id number] [place] [address]- 3313 Jun, [facility] [place] [facility] [address] [id number] [place] [address]- 1097 Jun, [facility] [place] [facility] [address] [id number] [place] [address]- 1937 May, [facility] [place] [facility] [address] [id number] [place] [address]- 0627 May, [facility] [place] [facility] [address] [id number] [place] [address]- 3196 May, [facility] [place] [facility] [address] [id number] [place] [address]- 3983 May, [facility] [place] [facility] [address] [id number] [place] [address]- 3585 May, [facility] [place] [facility] [address] [id number] [place] [address]- 0869 May, [facility] [place] [facility] [address] [id number] [place] [address]- 0122 May, [facility] [place] [facility] [address] [id number] [place] [address]- 4633 May, [facility] [place] [facility] [address] [id number] [place] [address]- 8453 May, [facility] [place] [facility] [address] [id number] [place] [address]- 2442 May, [facility] [place] [facility] [address] [id number] [place] [address]- 1088 May, [facility] [place] [facility] [address] [id number] [place] [address]- 2521 May, [facility] [place] [facility] [address] [id number] [place] [address]- 7792 Apr, [facility] [place] [facility] [address] [id number] [place] [address]- 1532 Apr, [facility] [place] [facility] [address] [id number] [place] [address]- 1250 Apr, [facility] [place] [facility] [address] [id number] [place] [address]- 1025 Apr, [facility] [place] [facility] [address] [id number] [place] [address]- 8943 Apr, [facility] [place] [facility] [address] [id number] [place] [address]- 7751 Apr, [facility] [place] [facility] [address] [id number] [place] [address]- 1639 Apr, [facility] [place] [facility] [address] [id number] [place] [address]- 0959 Apr, [facility] [place] [facility] [address] [id number] [place] [address]- 3374 Apr, [facility] [place] [facility] [address] [id number] [place] [address]- 2600 Apr, [facility] [place] [facility] [address] [id number] [place] [address]- 0922 March, [facility] [place] [facility] [address] [id number] [place] [address]- 0316 March, [facility] [place] [facility] [address] [id number] [place] [address]- 9891 March, [facility] [place] [facility] [address] [id number] [place] [address]- 7867 March, [facility] [place] [facility] [address] [id number] [place] [address]- 1085 March, [facility] [place] [facility] [address] [id number] [place] [address]- 9384 March, [facility] [place] [facility] [address] [id number] [place] [address]- 0058 Feb, [facility] [place] [facility] [address] [id number] [place] [address]- 2880 Feb, [facility] [place] [facility] [address] [id number] [place] [address]- 7779 Feb, [facility] [place] [facility] [address] [id number] [place] [address]- 4767 Feb, [facility] [place] [facility] [address] [id number] [place] [address]- 0409 Feb, [facility] [place] [facility] [address] [id number] [place] [address]- 3300 Feb, [facility] [place] [facility] [address] [id number] [place] [address]- 1113 Feb, [facility] [place] [facility] [address] [id number] [place] [address]- 8268 Feb, [facility] [place] [facility] [address] [id number] [place] [address]- 1506 Feb, [facility] [place] [facility] [address] [id number] [place] [address]- 5095 Feb, [facility] [place] [facility] [address] [id number] [place] [address]- 5880 Jan, [facility] [place] [facility] [address] [id number] [place] [address]- 3451 Jan, [facility] [place] [facility] [address] [id number] [place] [address]- 9823 Jan, [facility] [place] [facility] [address] [id number] [place] [address]- 5275 Jan, [facility] [place] [facility] [address] [id number] [place] [address]- 4380 Jan, [facility] [place] [facility] [address] [id number] [place] [address]- 1961 Jan, [facility] [place] [facility] [address] [id number] [place] [address]- 7869 Jan, [facility] [place] [facility] [address] [facility] [id number] [place] [address]- 3916 Jan, [facility] [place] [facility] [address] [id number] [place] [address]- 5958 Dec, [facility] [place] [facility] [address] [id number] [place] [address]- 3837 Dec, [facility] [place] [facility] [address] [id number] [place] [address]- 2110 Dec, [facility] [place] [facility] [address] [id number] [place] [address]- 0556 Dec, [facility] [place] [facility] [address] [id number] [place] [address]- 6122 Dec, [facility] [place] [facility] [address] [id number] [place] [address]- 6699 Dec, [facility] [place] [facility] [address] [id number] [place] [address]- [address] Dec, [facility] [place] [facility] [address] [id number] [place] [address] Dec, [facility] [place] [facility] [address] [id number] [place] [address] Nov, [facility] [address] [id number] [place] [address] Nov, [facility] [place] [facility] [address] [id number] [place] [address]68 Nov, [facility] [address] [id number] [place] [address] Nov, [facility] [place] [facility] [address] [id number] [place] [address] Nov, [facility] [address] [id number] [place] [address] Nov, [facility] [place] [facility] [address] [id number] [place] [address] Nov, [facility] [address] [id number] [place] [address] Nov, [facility] [address] [id number] [place] [address] Nov, [facility] [place] [facility] [address] [id number] [place] [address] Nov, [facility] [address] [id number] [place] [address] 9531 Nov, [facility] [place] [facility] [address] [id number] [place] [address] Oct, [facility] [place] [facility] [address] [id number] [place] [address] Oct, [facility] [place] [facility] [address] [id number] [place] [address] Oct, [facility] [place] [facility] [address] [id number] [place] [address] Oct, [facility] [place] [facility] [address] [id number] [place] [address]- [address] Sep, [facility] [place] [facility] [address] [id number] [place] [address]398 Sep, [facility] [place] [facility] [address] [id number] [place] [address]- [address] Sep, [facility] [place] [facility] [address] [id number] [place] [address]- [address] Sep, [facility] [place] [facility] [address] [id number] [place] [address]- [address]26 Aug, [facility] [place] [facility] [address] [id number] [place] [address]- 1879 Aug, [facility] [place] [facility] [address] [id number] [place] [address]- 3660 Aug, [facility] [place] [facility] [address] [id number] [place] [address]- 8643 Aug, [facility] [place] [facility] [address] [id number] [address] Aug, [facility] [place] [facility] [address] [id number] [place] [address]- [address]773 Aug, [facility] [place] [facility] [address] [id number] [address] Aug, [facility] [place] [facility] [address] [id number] [address] Aug, [facility] [place] [facility] [address] [id number] [address] Jul, [facility] [place] [facility] [address] [id number] [place] [address]- 74[address] Jul, [facility] [place] [facility] [address] [id number] [address]77 Jul, [facility] [place] [facility] [address] [id number] [place] [address]- 8424 Jul, [facility] [place] [facility] [address] [id number] [place] [address]- [address]67 24 Sep, 2012 [facility] [place] [facility] [address] [id number] [place] [address]- [address] 23 Sep, 2012 [facility] [place] [facility] [address] [id number] [place] [address] 2546 19 Jul, 2012 [facility] [place] [facility] [address] [id number] [place] [address] 2546 18 Sep, 2012 [facility] [place] [facility] [address] [id number] [place] [address]- [address]16 17 Sep, 2012 [facility] [place] [facility] [address] [id number] [place] [address]- [address] 16 Jul, 2012 [facility] [place] [facility] [address] [id number] [place] [address]- 3523 13 Jul, 2012 [facility] [place] [facility] [address] [id number] [place] [address]- 7921 13 Jul, 2012 [facility] [place] [facility] [address] [id number] [place] [address]- [address]57 12 Jul, 2012 [facility] [place] [facility] [address] [id number] [place] [address]- [address]75 11 Jul, 2012 [facility] [place] [facility] [address] [id number] [place] [address]- [address] 04 Jul, 2013 [facility] [place] [facility] [address] [id number] [place] [address]- [address]28 30 Jun, 2013 [facility] [place] [facility] [address] [id number] [place] [address]- 2548 Jun, [facility] [place] [facility] [address] [id number] [place] [address]- [address] Jun, [facility] [place] [facility] [address] [id number] [place] [address]- [address] May, [facility] [place] [facility] [address] [id number] [place] [address]- 0777 May, [facility] [place] [facility] [address] [id number] [place] [address]- 6658 May, [facility] [address] [id number] [place] [address]- 9752 May, [facility] [place] [facility] [address] [id number] [place] [address]- [address]239 Apr, [facility] [place] [facility] [address] [id number] [place] [address]- 2940 Apr, [facility] [place] [facility] [address] [id number] [place] [address]- 8079 Apr, [facility] [place] [facility] [address] [id number] [place] [address]- 6027 Apr, [facility] [address] [id number] [place] [address] March, [facility] [address] [id number] [place] [address] March, [facility] [facility] [address] [id number] [place] [address] March, [facility] [address] [id number] [place] [address] Feb, [facility] [place] [facility] [address] [id number] [place] [address] Feb, [facility] [place] [facility] [address] [id number] [place] [address] Jan, [facility] [place] [facility] [address] [id number] [place] [address] Jan, [facility] [place] [facility] [address] [id number] [place] [address] Jan, [facility] [place] [facility] [address] [id number] [place] [address] Jan, [facility] [place] [facility] [address] [id number] [place] [address] Jan, [facility] [address] [id number] [place] [address] Dec, [facility] [address] [id number] [place] [address]396 Dec, [facility] [address] [id number] [place] [address]- 5696 Dec, [facility] [address] [id number] [place] [address]- 6[address] Dec, [facility] [address] [id number] [place] [address]- 6907 Dec, [facility] [address] [id number] [place] [address] 5526 Dec, [facility] [address] [id number] [place] [address] 48[address] Dec, [facility] [address] [id number] [place] [address]- 0627 Dec, [facility] [address] [id number] [place] [address] 7157 Nov, [facility] [address] [facility] [id number] [place] [address] 7627 Nov, [facility] [address] [id number] [place] [address]- 2088 Nov, [facility] [place] [facility] [address] [id number] [address] Nov, [facility] [place] [facility] [address] [id number] [place] [address]- 8714 Nov, [facility] [place] [facility] [address] [facility] [id number] [place] [address]- 4825 Nov, [facility] [place] [facility] [address] [facility] [id number] [address] Nov, [facility] [place] [facility] [address] [id number] [place] [address]- 2976 Oct, [facility] [place] [facility] [address] [id number] [place] [address]- 1992 Oct, [facility] [place] [facility] [address] [id number] [place] [address]- 9376 Oct, [facility] [place] [facility] [address] [id number] [place] [address]- 5386 Oct, [facility] [place] [facility] [address] [id number] [place] [address]- 5089 Oct, [facility] [place] [facility] [address] [id number] [place] [address]- 4665 Oct, [facility] [place] [facility] [address] [id number] [place] [address]- 9481 Oct, [facility] [place] [facility] [address] [id number] [place] [address]- 6630 Oct, [facility] [place] [facility] [address] [id number] [place] [address]- 9278 Sep, [facility] [place] [facility] [address] [id number] [place] [address]- 6628 Sep, [facility] [place] [facility] [address] [id number] [place] [address] 1903 Sep, [facility] [place] [facility] [address] [id number] [place] [address]- 6432 Sep, [facility] [place] [facility] [address] [id number] [place] [address]- 8497 Sep, [facility] [place] [facility] [address] [id number] [place] [address]- 9122 Sep, [facility] [place] [facility] [address] [id number] [place] [address]- 3209 Sep, [facility] [place] [facility] [address] [id number] [place] [address]- [address] Sep, [facility] [place] [facility] [address] [id number] [place] [address]- 3079 Sep, [facility] [place] [facility] [address] [id number] [place] [address]- 2287 Sep, [facility] [place] [facility] [address] [facility] [id number] [place] [address] 1958 Sep, [facility] [place] [facility] [address] [id number] [address]- 8352 Sep, [facility] [place] [facility] [address] [id number] [place] [address]- 5072 Sep, [facility] [place] [facility] [address] [facility] [id number] [address]- [address] Sep, [facility] [place] [facility] [address] [facility] [id number] [address]- 2726 Sep, [facility] [place] [facility] [address] [id number] [address]- 5919 Sep, [facility] [place] [facility] [address] [id number] [address]- 4293 Sep, [facility] [place] [facility] [address] [facility] [id number] [address]- 8559 Sep, [facility] [place] [facility] [address] [id number] [address]- 2894 Sep, [facility] [place] [facility] [address] [id number] [address]- 0169 Sep, [facility] [place] [facility] [address] [id number] [address]- 4341 Aug, [facility] [place] [facility] [address] [facility] [id number] [address]- 0091 Aug, [facility] [place] [facility] [address] [facility] [id number] [address]- 6033 Aug, [facility] [place] [facility] [address] [id number] [place] [address]- 5368 27 Aug, 2012 [facility] [place] [facility] [address] [id number] [place] [address]- 9587 27 Aug, 2012 [facility] [place] [facility] [address] [id number] [place] [address]- 0838 18 Aug, 2012 [facility] [place] [facility] [address] [id number] [place] [address]- 1552 18 Aug, 2012 [facility] [place] [facility] [address] [id number] [place] [address]- 9459 17 Aug, 2012 [facility] [place] [facility] [address] [id number] [place] [address]- 7085 16 Aug, 2012 [facility] [place] [facility] [address] [id number] [place] [address]- 1955 16 Aug, 2012 [facility] [place] [facility] [address] [id number] [place] [address]- 8723 15 Aug, 2012 [facility] [place] [facility] [address] [id number] [place] [address]- 5570 09 Aug, 2012 [facility] [place] [facility] [address] [id number] [place] [address]- 1390 05 Aug, 2012 [facility] [place] [facility] [address] [id number] [place] [address]- 8039 05 Aug, 2012 [facility] [place] [facility] [address] [id number] [place] [address]- 2325 04 Aug, 2012 [facility] [place] [facility] [address] [id number] [place] [address]- 2524 14 Jul, 2012 [facility] [place] [facility] [address] [id number] [place] [address]- 0141 10 Jul, 2012 [facility] [place] [facility] [address] [id number] [place] [address]- 5037 31 Jun, 2012 [facility] [place] [facility] [address] [id number] [place] [address]- 7947 Jun, [facility] [place] [facility] [address] [id number] [place] [address]- 5415 May, [facility] [place] [facility] [address] [id number] [place] [address] May, [facility] [place] [facility] [address] [id number] [place] [address]- 7844 May, [facility] [place] [facility] [address] [id number] [place] [address]- 3299 May, [facility] [address] [id number] [place] [address]- 3694 May, [facility] [place] [facility] [address] [id number] [place] [address]- 0549 May, [facility] [address] [id number] [place] [address]- 2521 Apr, [facility] [place] [facility] [address] [id number] [place] [address]- 9423 Apr, [facility] [place] [facility] [address] [id number] [place] [address]- 9442 March, [facility] [place] [facility] [address] [id number] [place] [address]- 4186 March, [facility] [place] [facility] [address] [id number] [place] [address]- 2567 March, [facility] [place] [facility] [address] [id number] [place] [address]- 3405 March, [facility] [place] [facility] [address] [id number] [place] [address]- 4584 March, [facility] [place] [facility] [address] [id number] [place] [address]- 0516 March, [facility] [place] [facility] [address] [id number] [place] [address]- 5655 Feb, [facility] [place] [facility] [address] [id number] [place] [address]- 6765 Feb, [facility] [address] [id number] [place] [address]- 2280 Feb, [facility] [place] [facility] [address] [id number] [place] [address]- 5306 Feb, [facility] [place] [facility] [address] [id number] [place] [address]- 8766 Feb, [facility] [place] [facility] [address] [id number] [place] [address]- 3179 Feb, [facility] [place] [facility] [address] [id number] [place] [address]- 8507 Feb, [facility] [place] [facility] [address] [id number] [place] [address]- 8911 Feb, [facility] [address] [id number] [place] [address]- 0625 Feb, [facility] [place] [facility] [address] [id number] [place] [address]- 1975 30 Jan, 2012 [facility] [place] [facility] [address] [id number] [place] [address]- 1378 27 Jan, 2012 [facility] [place] [facility] [address] [id number] [place] [address]- 3170 Jan, [facility] [place] [facility] [address] [id number] [place] [address]- 7656 Jan, [facility] [place] [facility] [address] [id number] [place] [address]- 1949 21 Jan, 2012 [facility] [place] [facility] [address] [id number] [place] [address]- 5515 20 Jan, 2012 [facility] [place] [facility] [address] [id number] [place] [address]- 0183 14 Jan, 2012 [facility] [place] [facility] [address] [id number] [place] [address]- 2711 09 Jan, 2012 [facility] [place] [facility] [address] [id number] [place] [address]- 3893 09 Jan, 2012 [facility] [place] [facility] [address] [id number] [place] [address]- 8001 08 Jan, 2012 [facility] [place] [facility] [address] [id number] [place] [address]- 8766 07 Jan, 2012 [facility] [place] [facility] [address] [id number] [place] [address]- 3830 06 Jan, 2012 [facility] [place] [facility] [address] [id number] [place] [address]- 8035 02 Jan, 2012 [facility] [place] [facility] [address] [id number] [place] [address]- 9156 02 Jan, 2012 [facility] [place] [facility] [address] [facility] [id number] [place] [address]- 9165 28 Dec, 2011 [facility] [place] [facility] [address] [id number] [place] [address]- 6041 27 Dec, 2011 [facility] [place] [facility] [address] [id number] [place] [address]- 9952 25 Dec, 2011 [facility] [place] [facility] [address] [facility] [id number] [place] [address]- 0177 23 Dec, 2011 [facility] [place] [facility] [address] [facility] [id number] [place] [address]- 8358 16 Dec, 2011 [facility] [place] [facility] [address] [facility] [id number] [address]- 3320 08 Dec, 2011 [facility] [place] [facility] [address] [facility] [id number] [place] [address]- 7965 08 Dec, 2011 [facility] [place] [facility] [address] [id number] [place] [address]- 9377 07 Dec, 2011 [facility] [place] [facility] [address] [facility] [id number] [place] [address]- 2560 07 Dec, 2011 [facility] [place] [facility] [address] [facility] [id number] [place] [address]- 6031 Nov, [facility] [address] [id number] [place] [address]- 1318 Nov, [facility] [place] [facility] [address] [id number] [place] [address]- 9119 Nov, [facility] [place] [facility] [address] [facility] [id number] [place] [address]- 3721 Nov, [facility] [place] [facility] [address] [id number] [place] [address]- 5952 Oct, [facility] [place] [facility] [address] [id number] [place] [address]- 7755 Oct, [facility] [place] [facility] [address] [id number] [place] [address]- 1482 Oct, [facility] [address] [facility] [id number] [place] [address]- 5013 Oct, [facility] [place] [facility] [address] [id number] [place] [address]- 6900 Oct, [facility] [place] [facility] [address] [facility] [id number] [place] [address]- 5487 Oct, [facility] [place] [facility] [address] [facility] [id number] [place] [address]- 1123 Oct, [facility] [place] [facility] [address] [id number] [place] [address]- 1550 Sep, [facility] [place] [facility] [address] [id number] [place] [address]- 1378 Sep, [facility] [place] [facility] [address] [id number] [place] [address]- 9554 Sep, [facility] [place] [facility] [address] [id number] [place] [address]- 1954 Sep, [facility] [place] [facility] [address] [facility] [id number] [place] [address]- 8902 Sep, [facility] [place] [facility] [address] [id number] [place] [address]- 6542 Sep, [facility] [place] [facility] [address] [id number] [place] 6044 Sep, [facility] [place] [facility] [address] [id number] [place] [address]- 1706 Sep, [facility] [place] [facility] [address] [id number] [place] [address]- 0943 Sep, [facility] [place] [facility] [address] [id number] [place] [address]- 4910 Aug, [facility] [place] [facility] [address] [id number] [place] [address]- 7451 Aug, [facility] [place] [facility] [address] [id number] [place] [address]- 6421 Aug, [facility] [place] [facility] [address] [id number] [place] [address]- 1254 May, [facility] [place] [facility] [address] [id number] [place] [address]- 6949 Nov, [facility] [place] [facility] [address] [id number] [place] [address]- 3563 Oct, [facility] [place] [facility] [address] [id number] [place] [address]- 3302 Oct, [facility] [place] [facility] [address] [id number] [place] [address]- 4846 Oct, [facility] [place] [facility] [address] [id number] [place] [address] 2547 Oct, [facility] [place] [facility] [address] [id number] [place] [address]- 3856 Oct, [facility] [place] [facility] [address] [id number] [place] [address]- 7796 Sep, [facility] [place] [facility] [address] [id number] [place] [address]- 7683 02 Sep, 2010 [facility] [address] [facility] [id number] [address]- 1695 14 Jul, 2010 [facility] [address] [facility] [id number] [address]- 9044 Oct, [facility] [address] [facility] [id number] [address]- 9205 Oct, [facility] [address] [facility] [id number] [place] [address]- 1967 Oct, [facility] [address] [facility] [id number] [place] [address] 35997- 3243 Oct, [facility] [address] [facility] [id number] [place] [address] 51246- 2363 30 Sep, 2009 [facility] [id number] [place] [address] 71716- 4768 Sep, [facility] [address] [id number] [place] [address] 60408- 8506 Sep, [facility] [address] [facility] [id number] [address]- 2136 Sep, [facility] [id number] [address]- 7102 Sep, [facility] [address]00565100[place] [address]- 8429 Jul, [facility] [id number], [place] [address]- 1439 Apr, [facility] [address] [facility] [id number] [address]- 5169 Dec, IMMUNIZATIONS No Known Immunizations SOCIAL HISTORY Never Assessed REASON FOR VISIT DM supplies PLAN OF CARE VITAL SIGNS MEDICATIONS Medication Instructions Dosage Frequency Start Date End Date Duration Status Test strips as directed Dec, Active One Touch Delica Lancets - as directed Dec, Active Accu-Chek Ranjana SmartView w/Device as directed Dec, Active RESULTS No Results PROCEDURES No Known procedures INSTRUCTIONS MEDICATIONS ADMINISTERED No Known Medications MEDICAL (GENERAL) HISTORY Type Description Date Medical History hypertension Medical History hyperlipidemia Medical History diabetes type II Medical History COPD Medical History asthma Surgical History hysterectomy Surgical History arthritis surgery Hospitalization History surgeries
[2018-11-26 16:35] VITALS: BP 145/85
--- NOTE | 2018-11-26 16:35 | NUR ---
MAULIK ELIZALDE admitted to room 414-1, with an admitting diagnosis of Gastroenteritis and UTI, on 11/26/18 from ED via bed, accompanied by staff member.MAULIK ELIZALDE introduced to surroundings, call light, bed controls, phone, TV, temperature control, lights, meal times, smoking policy, visitor policy, side rail policy, bathrooms and showers. Patient Rights given to patient in the handbook. MAULIK ELIZALDE verbalizes understanding that [facility] is not responsible for the loss or damage to any personal effects or valuables that are kept in the patients posession during their hospitalization. The Patient Care Plans were discussed with the patient along with Discharge Planning. MAULIK ELIZALDE verbalizes understanding of Interdisciplinary Patient Education. Patient and/or family were informed about the Rapid Response Team and its purpose.
--- OUTSIDE RECORDS SUMMARY | 2018-11-26 16:47 | XMS REPORT | Continuity of Care Document ---
Author Author [facility] Address Unknown Phone Unavailable Allergies Active Description Code Type Severity Reaction Onset Reported/Identified Relationship to Patient Clinical Status Yes codeine Drug Allergy N/A N/A 01/02/2009 Yes Penicillins Drug Allergy N/A N/A 01/02/2009 Yes codeine Drug Allergy 01/02/2009 Yes Penicillins Drug Allergy 01/02/2009 Yes aspirin Drug Allergy N/A N/A 12/02/2012 Yes aspirin Drug Allergy 12/02/2012 Yes peanut Drug Allergy N/A N/A 2014 Yes tramadol [id number] Drug Allergy Mild N/V 07/23/2018 Yes aspirin [id number] Drug Allergy Mild Nausea 07/30/2018 Yes codeine [id number] Drug Allergy Mild Nausea 07/30/2018 Yes Penicillins [id number] Drug Allergy Mild Hives 07/30/2018 Yes amlodipine besylate [id number] Drug Allergy Unknown N/A 07/30/2018 Yes benazepril HCl [id number] Drug Allergy Unknown N/A 07/30/2018 Yes Pzmyqsf-Zum-Qkc Reductase Inhibitor [id number] Drug Allergy Unknown N/A Medications There is no data. Problems Date [...] Ii - Uncomplicated, Uncontrolled 06/27/2008 KARYN OLVERA, BYORN Bruner 250.02 Diabetes Mellitus Type Ii - [...] Type Ii - Uncomplicated, Uncontrolled 06/27/2008 MADMaxine PLATFORM CONSULTANT, ETELVINA L 250.02 Diabetes Mellitus Type Ii - Uncomplicated, Uncontrolled 06/27/2008 MADL PLATFORM CONSULTANT, ETELVINA L 250.02 Diabetes Mellitus Type Ii - Uncomplicated, Uncontrolled 06/27/2008 MADL PLATFORM CONSULTANT, ETELVINA L 250.02 Diabetes Mellitus Type Ii - Uncomplicated, Uncontrolled 06/27/2008 SALGUERO DO LADONNA K 250.02 Diabetes Mellitus Type Ii - Uncomplicated, Uncontrolled 06/27/2008 NOEMY PRAKASH LADONNA K 250.02 Diabetes Mellitus Type Ii - Uncomplicated, Uncontrolled 06/27/2008 MADMaxine PLATFORM CONSULTANT, ETELVINA L 250.02 Diabetes Mellitus Type Ii - Uncomplicated, Uncontrolled 06/27/2008 MADL PLATFORM CONSULTANT, ETELVINA L 250.02 Diabetes Mellitus Type Ii - Uncomplicated, Uncontrolled 06/27/2008 MADL PLATFORM CONSULTANT, ETELVINA L 250.02 Diabetes Mellitus Type Ii - Uncomplicated, Uncontrolled 06/27/2008 MADL PLATFORM CONSULTANT, ETELVINA L 250.02 Diabetes Mellitus Type Ii - Uncomplicated, Uncontrolled 06/27/2008 MADL PLATFORM CONSULTANT, ETELVINA L 250.02 Diabetes Mellitus Type Ii - Uncomplicated, Uncontrolled 06/27/2008 MADL PLATFORM CONSULTANT, ETELVINA L 250.02 Diabetes Mellitus Type Ii - Uncomplicated, Uncontrolled 06/27/2008 MADL PLATFORM CONSULTANT, ETELVINA L 250.02 Diabetes Mellitus Type Ii - Uncomplicated, Uncontrolled 06/27/2008 SALGUERO DO, LADONNA K 250.02 Diabetes Mellitus Type Ii - Uncomplicated, Uncontrolled 06/27/2008 SALGUERO DO, LADONNA K 250.02 Diabetes Mellitus Type Ii - Uncomplicated, Uncontrolled 06/27/2008 MADL PLATFORM CONSULTANT, ETELVINA L 250.02 Diabetes Mellitus Type Ii - Uncomplicated, Uncontrolled 06/27/2008 SALGUERO DO, LADONNA K 250.02 Diabetes Mellitus Type Ii - Uncomplicated, Uncontrolled 06/27/2008 MADL PLATFORM CONSULTANT, ETELVINA L 250.02 Diabetes Mellitus Type Ii [...] K 401.1 ESSENTIAL HYPERTENSION BENIGN 09/27/2008 MADL PLATFORM CONSULTANT, ETELVINA L 250.00 DIABETES MELLITUS 09/27/2008 MADL PLATFORM CONSULTANT, ETELVINA L 401.1 ESSENTIAL HYPERTENSION BENIGN 09/27/2008 MADL PLATFORM CONSULTANT, ETELVINA L 250.00 DIABETES MELLITUS 09/27/2008 MADL PLATFORM CONSULTANT, ETELVINA L 401.1 ESSENTIAL HYPERTENSION BENIGN 09/27/2008 MADL PLATFORM CONSULTANT, ETELVINA L 250.00 DIABETES MELLITUS 09/27/2008 MADL PLATFORM CONSULTANT, ETELVINA L 401.1 ESSENTIAL HYPERTENSION BENIGN 09/27/2008 SALGUERO DO, LADONNA K 250.00 DIABETES MELLITUS 09/27/2008 SALGUERO DO, LADONNA K 401.1 ESSENTIAL HYPERTENSION BENIGN 09/27/2008 SALGUERO DO, LADONNA K 250.00 DIABETES MELLITUS 09/27/2008 SALGUERO DO, LADONNA K 401.1 ESSENTIAL HYPERTENSION BENIGN 09/27/2008 MADL PLATFORM CONSULTANT, ETELVINA L 250.00 DIABETES MELLITUS 09/27/2008 MADL PLATFORM CONSULTANT, ETELVINA L 401.1 ESSENTIAL HYPERTENSION BENIGN 09/27/2008 MADL PLATFORM CONSULTANT, ETELVINA L 250.00 DIABETES MELLITUS 09/27/2008 MADL PLATFORM CONSULTANT, ETELVINA L 401.1 ESSENTIAL HYPERTENSION BENIGN 09/27/2008 MADL PLATFORM CONSULTANT, ETELVINA L 250.00 DIABETES MELLITUS 09/27/2008 MADL PLATFORM CONSULTANT, ETELVINA L 401.1 ESSENTIAL HYPERTENSION BENIGN 09/27/2008 MADL PLATFORM CONSULTANT, ETELVINA L 250.00 DIABETES MELLITUS 09/27/2008 MADL PLATFORM CONSULTANT, ETELVINA L 401.1 ESSENTIAL HYPERTENSION BENIGN 09/27/2008 MADL PLATFORM CONSULTANT, ETELVINA L 250.00 DIABETES MELLITUS 09/27/2008 MADL PLATFORM CONSULTANT, ETELVINA L 401.1 ESSENTIAL HYPERTENSION BENIGN 09/27/2008 MADL PLATFORM CONSULTANT, ETELVINA L 250.00 DIABETES MELLITUS 09/27/2008 MADL PLATFORM CONSULTANT, ETELVINA L 401.1 ESSENTIAL HYPERTENSION BENIGN 09/27/2008 MADL PLATFORM CONSULTANT, ETELVINA L 250.00 DIABETES MELLITUS 09/27/2008 MADL PLATFORM CONSULTANT, ETELVINA L 401.1 ESSENTIAL HYPERTENSION BENIGN 09/27/2008 SALGUERO DO, LADONNA K 250.00 DIABETES MELLITUS 09/27/2008 SALGUERO DO, LADONNA K 401.1 ESSENTIAL HYPERTENSION BENIGN 09/27/2008 SALGUERO DO, LADONNA K 250.00 DIABETES MELLITUS 09/27/2008 SALGUERO DO, LADONNA K 401.1 ESSENTIAL HYPERTENSION BENIGN 09/27/2008 MADL PLATFORM CONSULTANT, ETELVINA L 250.00 DIABETES MELLITUS 09/27/2008 MADL PLATFORM CONSULTANT, ETELVINA L 401.1 ESSENTIAL HYPERTENSION BENIGN 09/27/2008 SALGUERO DO, LADONNA K 250.00 DIABETES MELLITUS 09/27/2008 TERE SALGUERO DOA K 401.1 ESSENTIAL HYPERTENSION BENIGN 09/27/2008 MADL PLATFORM CONSULTANT, ETELVINA L 250.00 DIABETES MELLITUS 09/27/2008 MADL PLATFORM CONSULTANT, ETELVINA L 401.1 ESSENTIAL HYPERTENSION BENIGN 11/01/2008 [...] In Joint Involving Lower Leg 11/01/2008 MADL PLATFORM CONSULTANT, ETELVINA L 719.46 Pain In Joint Involving Lower Leg 11/01/2008 MADL PLATFORM CONSULTANT, ETELVINA L 719.46 Pain In Joint Involving Lower Leg 11/01/2008 MADL PLATFORM CONSULTANT, ETELVINA L 719.46 Pain In Joint Involving Lower Leg 11/01/2008 NOEMY DOLADONNA K 719.46 Pain In Joint Involving Lower Leg 11/01/2008 LADONNA SALGUERO DO K 719.46 Pain In Joint Involving Lower Leg 11/01/2008 MADL PLATFORM CONSULTANT, ETELVINA L 719.46 Pain In Joint Involving Lower Leg 11/01/2008 MADL PLATFORM CONSULTANT, ETELVINA L 719.46 Pain In Joint Involving Lower Leg 11/01/2008 MADL PLATFORM CONSULTANT, ETELVINA L 719.46 Pain In Joint Involving Lower Leg 11/01/2008 MADL PLATFORM CONSULTANT, ETELVINA L 719.46 Pain In Joint Involving Lower Leg 11/01/2008 MADL PLATFORM CONSULTANT, ETELVINA L 719.46 Pain In Joint Involving Lower Leg 11/01/2008 MADL PLATFORM CONSULTANT, ETELVINA L 719.46 Pain In Joint Involving Lower Leg 11/01/2008 MADL PLATFORM CONSULTANT, ETELVINA L 719.46 Pain In Joint Involving Lower Leg 11/01/2008 NOEMY DOLADONNA K 719.46 Pain In Joint Involving Lower Leg 11/01/2008 LADONNA SALGUERO DO K 719.46 Pain In Joint Involving Lower Leg 11/01/2008 MADL PLATFORM CONSULTANT, ETELVINA L 719.46 Pain In Joint Involving Lower Leg 11/01/2008 NOEMY DOLADONNA K 719.46 Pain In Joint Involving Lower Leg 11/01/2008 MADL PLATFORM CONSULTANT, ETELVINA L 719.46 Pain In Joint Involving [...] K 728.85 Spasm Of Muscle 12/12/2008 MADL PLATFORM CONSULTANT, ETELVINA L 496 CHRONIC OBSTRUCTIVE PULMONARY DISEASE 12/12/2008 MADL PLATFORM CONSULTANT, ETELVINA L 728.85 Spasm Of Muscle 12/12/2008 MADL PLATFORM CONSULTANT, ETELVINA L 496 CHRONIC OBSTRUCTIVE PULMONARY DISEASE 12/12/2008 MADL PLATFORM CONSULTANT, ETELIVNA L 728.85 Spasm Of Muscle 12/12/2008 MADL PLATFORM CONSULTANT, ETELVINA L 496 CHRONIC OBSTRUCTIVE PULMONARY DISEASE 12/12/2008 MADL PLATFORM CONSULTANT, ETELVINA L 728.85 Spasm Of Muscle 12/12/2008 SALGUERO DO, LADONNA K 496 CHRONIC OBSTRUCTIVE PULMONARY DISEASE 12/12/2008 SALGUERO DO, LADONNA K 728.85 Spasm Of Muscle 12/12/2008 SALGUERO DO, LADONNA K 496 CHRONIC OBSTRUCTIVE PULMONARY DISEASE 12/12/2008 SALGUERO DO, LADONNA K 728.85 Spasm Of Muscle 12/12/2008 MADL PLATFORM CONSULTANT, ETELVINA L 496 CHRONIC OBSTRUCTIVE PULMONARY DISEASE 12/12/2008 MADL PLATFORM CONSULTANT, ETELVINA L 728.85 Spasm Of Muscle 12/12/2008 MADL PLATFORM CONSULTANT, ETELVINA L 496 CHRONIC OBSTRUCTIVE PULMONARY DISEASE 12/12/2008 MADL PLATFORM CONSULTANT, ETELVINA L 728.85 Spasm Of Muscle 12/12/2008 MADL PLATFORM CONSULTANT, ETELVINA L 496 CHRONIC OBSTRUCTIVE PULMONARY DISEASE 12/12/2008 MADL PLATFORM CONSULTANT, ETELVINA L 728.85 Spasm Of Muscle 12/12/2008 MADL PLATFORM CONSULTANT, ETELVINA L 496 CHRONIC OBSTRUCTIVE PULMONARY DISEASE 12/12/2008 MADL PLATFORM CONSULTANT, ETELVINA L 728.85 Spasm Of Muscle 12/12/2008 MADL PLATFORM CONSULTANT, ETELVINA L 496 CHRONIC OBSTRUCTIVE PULMONARY DISEASE 12/12/2008 MADL PLATFORM CONSULTANT, ETELVINA L 728.85 Spasm Of Muscle 12/12/2008 MADL PLATFORM CONSULTANT, ETELVINA L 496 CHRONIC OBSTRUCTIVE PULMONARY DISEASE 12/12/2008 MADL PLATFORM CONSULTANT, ETELVINA L 728.85 Spasm Of Muscle 12/12/2008 MADL PLATFORM CONSULTANT, ETELVINA L 496 CHRONIC OBSTRUCTIVE PULMONARY DISEASE 12/12/2008 MADL PLATFORM CONSULTANT, ETELVINA L 728.85 Spasm Of Muscle 12/12/2008 SALGUERO DO, LADONNA K 496 CHRONIC OBSTRUCTIVE PULMONARY DISEASE 12/12/2008 SALGUERO DO, LADONNA K 728.85 Spasm Of Muscle 12/12/2008 SALGUERO DO, LADONNA K 496 CHRONIC OBSTRUCTIVE PULMONARY DISEASE 12/12/2008 SALGUERO DO, LADONNA K 728.85 Spasm Of Muscle 12/12/2008 MADL PLATFORM CONSULTANT, ETELVINA L 496 CHRONIC OBSTRUCTIVE PULMONARY DISEASE 12/12/2008 MADL PLATFORM CONSULTANT, ETELVINA L 728.85 Spasm Of Muscle 12/12/2008 SALGUERO DO, LADONNA K 496 CHRONIC OBSTRUCTIVE PULMONARY DISEASE 12/12/2008 SALGUERO DO, LADONNA K 728.85 Spasm Of Muscle 12/12/2008 MADL PLATFORM CONSULTANT, ETELVINA L 496 CHRONIC OBSTRUCTIVE PULMONARY DISEASE 12/12/2008 MADL PLATFORM CONSULTANT, ETELVINA L 728.85 Spasm Of Muscle 01/11/2009 [...] Chest Pain Or Discomfort 01/11/2009 SALGUERO DO, LADNONA K 786.50 Chest Pain Or Discomfort 01/11/2009 SALGUERO DO, LADONNA K 786.50 Chest Pain Or Discomfort 01/11/2009 SALGUERO DO, LADONNA K 786.50 Chest Pain Or Discomfort 01/11/2009 MADL PLATFORM CONSULTANT, ETELVINA L 786.50 Chest Pain Or Discomfort 01/11/2009 MADL PLATFORM CONSULTANT, ETELVINA L 786.50 Chest Pain Or Discomfort 01/11/2009 MADL PLATFORM CONSULTANT, ETELVINA L 786.50 Chest Pain Or Discomfort 01/11/2009 SALGUERO DO, LADONNA K 786.50 Chest Pain Or Discomfort 01/11/2009 SALGUERO DO, LADONNA K 786.50 Chest Pain Or Discomfort 01/11/2009 MADL PLATFORM CONSULTANT, ETELVINA L 786.50 Chest Pain Or Discomfort 01/11/2009 MADL PLATFORM CONSULTANT, ETELVINA L 786.50 Chest Pain Or Discomfort 01/11/2009 MADL PLATFORM CONSULTANT, ETELVINA L 786.50 Chest Pain Or Discomfort 01/11/2009 MADL PLATFORM CONSULTANT, ETELVINA L 786.50 Chest Pain Or Discomfort 01/11/2009 MADL PLATFORM CONSULTANT, ETELVINA L 786.50 Chest Pain Or Discomfort 01/11/2009 MADL PLATFORM CONSULTANT, ETELVINA L 786.50 Chest Pain Or Discomfort 01/11/2009 MADL PLATFORM CONSULTANT, ETELVINA L 786.50 Chest Pain Or Discomfort 01/11/2009 SALGUERO DO, LADONNA K 786.50 Chest Pain Or Discomfort 01/11/2009 SALGUERO DO, LADONNA K 786.50 Chest Pain Or Discomfort 01/11/2009 MADL PLATFORM CONSULTANT, ETELVINA L 786.50 Chest Pain Or Discomfort 01/11/2009 SALGUERO DO, LADONNA K 786.50 Chest Pain Or Discomfort 01/11/2009 MADL PLATFORM CONSULTANT, ETELVINA L 786.50 Chest Pain Or Discomfort 02/20/2009 MORGAN PLATFORM CONSULTANT, LAURIE S 709.9 Dermatology - Skin Condition 02/20/2009 709.9 Dermatology - Skin Condition 02/20/2009 MORGAN PLATFORM CONSULTANT, LAURIE S 709.9 Dermatology - Skin Condition 02/20/2009 MORGAN PLATFORM CONSULTANT, LAURIE S 709.9 Dermatology - Skin Condition [...] 709.9 Dermatology - Skin Condition 02/20/2009 MADL PLATFORM CONSULTANT, ETELVINA L 709.9 Dermatology - Skin Condition 02/20/2009 MADL PLATFORM CONSULTANT, ETELVINA L 709.9 Dermatology - Skin Condition 02/20/2009 MADL PLATFORM CONSULTANT, ETELVINA L 709.9 Dermatology - Skin Condition 02/20/2009 SALGUERO DO, LADONNA K 709.9 Dermatology - Skin Condition 02/20/2009 SALGUERO DO, LADONNA K 709.9 Dermatology - Skin Condition 02/20/2009 MADL PLATFORM CONSULTANT, ETELVINA L 709.9 Dermatology - Skin Condition 02/20/2009 MADL PLATFORM CONSULTANT, ETELVINA L 709.9 Dermatology - Skin Condition 02/20/2009 MADL PLATFORM CONSULTANT, ETELVINA L 709.9 Dermatology - Skin Condition 02/20/2009 MADL PLATFORM CONSULTANT, ETELVINA L 709.9 Dermatology - Skin Condition 02/20/2009 MADL PLATFORM CONSULTANT, ETELVINA L 709.9 Dermatology - Skin Condition 02/20/2009 MADL PLATFORM CONSULTANT, ETELVINA L 709.9 Dermatology - Skin Condition 02/20/2009 MADL PLATFORM CONSULTANT, ETELVINA L 709.9 Dermatology - Skin Condition 02/20/2009 SALGUERO DO, LADONNA K 709.9 Dermatology - Skin Condition 02/20/2009 SALGUERO DO, LADONNA K 709.9 Dermatology - Skin Condition 02/20/2009 MADL PLATFORM CONSULTANT, ETELVINA L 709.9 Dermatology - Skin Condition 02/20/2009 SALGUERO DO, LADONNA K 709.9 Dermatology - Skin Condition 02/20/2009 MADL PLATFORM CONSULTANT, ETELVINA L 709.9 Dermatology - Skin Condition [...] Disorders Of Function Of Stomach 04/05/2009 MADL PLATFORM CONSULTANT, ETELVINA L 536.8 Dyspepsia And Other Specified Disorders Of Function Of Stomach 04/05/2009 MADL PLATFORM CONSULTANT, ETELVINA L 536.8 Dyspepsia And Other Specified Disorders Of Function Of Stomach 04/05/2009 MADL PLATFORM CONSULTANT, ETELVINA L 536.8 Dyspepsia And Other Specified Disorders Of Function Of Stomach 04/05/2009 SALGUERO DO, LADONNA K 536.8 Dyspepsia And Other Specified Disorders Of Function Of Stomach 04/05/2009 SALGUERO DO, LADONNA K 536.8 Dyspepsia And Other Specified Disorders Of Function Of Stomach 04/05/2009 MADL PLATFORM CONSULTANT ETELVINA L 536.8 Dyspepsia And Other Specified Disorders Of Function Of Stomach 04/05/2009 MADL PLATFORM CONSULTANT, ETELVINA L 536.8 Dyspepsia And Other Specified Disorders Of Function Of Stomach 04/05/2009 MADL PLATFORM CONSULTANT, ETELVINA L 536.8 Dyspepsia And Other Specified Disorders Of Function Of Stomach 04/05/2009 MADL PLATFORM CONSULTANT, ETELVINA L 536.8 Dyspepsia And Other Specified Disorders Of Function Of Stomach 04/05/2009 MADL PLATFORM CONSULTANT, ETELVINA L 536.8 Dyspepsia And Other Specified Disorders Of Function Of Stomach 04/05/2009 MADL PLATFORM CONSULTANT, ETELVINA L 536.8 Dyspepsia And Other Specified Disorders Of Function Of Stomach 04/05/2009 MADL PLATFORM CONSULTANT, ETELVINA L 536.8 Dyspepsia And Other Specified Disorders Of Function Of Stomach 04/05/2009 SALGUERO DO, LADONNA K 536.8 Dyspepsia And Other Specified Disorders Of Function Of Stomach 04/05/2009 SALGUERO DO, LADONNA K 536.8 Dyspepsia And Other Specified Disorders Of Function Of Stomach 04/05/2009 MADL PLATFORM CONSULTANT, ETELVINA L 536.8 Dyspepsia And Other Specified Disorders Of Function Of Stomach 04/05/2009 SALGUERO DO, LADONNA K 536.8 Dyspepsia And Other Specified Disorders Of Function Of Stomach 04/05/2009 MADL PLATFORM CONSULTANT, ETELVINA L 536.8 Dyspepsia And Other Specified [...] DO, LADONNA K 787.02 Nausea 05/09/2009 MADL PLATFORM CONSULTANT, ETELVINA L 327.52 Organic Sleep-related Leg Cramps 05/09/2009 MADL PLATFORM CONSULTANT, ETELVINA L 787.02 Nausea 05/09/2009 MADL PLATFORM CONSULTANT, ETELVINA L 327.52 Organic Sleep-related Leg Cramps 05/09/2009 MADL PLATFORM CONSULTANT, ETELVINA L 787.02 Nausea 05/09/2009 MADL PLATFORM CONSULTANT, ETELVINA L 327.52 Organic Sleep-related Leg Cramps 05/09/2009 MADL PLATFORM CONSULTANT, ETELVINA L 787.02 Nausea 05/09/2009 SALGUERO DO, LADONNA K 327.52 Organic Sleep-related Leg Cramps 05/09/2009 SALGUERO DO, LADONNA K 787.02 Nausea 05/09/2009 SALGUERO DO, LADONNA K 327.52 Organic Sleep-related Leg Cramps 05/09/2009 SALGUERO DO, LADONNA K 787.02 Nausea 05/09/2009 MADL PLATFORM CONSULTANT, ETELVINA L 327.52 Organic Sleep-related Leg Cramps 05/09/2009 MADL PLATFORM CONSULTANT, ETELVINA L 787.02 Nausea 05/09/2009 MADL PLATFORM CONSULTANT, ETELVINA L 327.52 Organic Sleep-related Leg Cramps 05/09/2009 MADL PLATFORM CONSULTANT, ETELVINA L 787.02 Nausea 05/09/2009 MADL PLATFORM CONSULTANT, ETELVINA L 327.52 Organic Sleep-related Leg Cramps 05/09/2009 MADL PLATFORM CONSULTANT, ETELVINA L 787.02 Nausea 05/09/2009 MADL PLATFORM CONSULTANT, ETELVINA L 327.52 Organic Sleep-related Leg Cramps 05/09/2009 MADL PLATFORM CONSULTANT, ETELVINA L 787.02 Nausea 05/09/2009 MADL PLATFORM CONSULTANT, ETELVINA L 327.52 Organic Sleep-related Leg Cramps 05/09/2009 MADL PLATFORM CONSULTANT, ETELVINA L 787.02 Nausea 05/09/2009 MADL PLATFORM CONSULTANT, ETELVINA L 327.52 Organic Sleep-related Leg Cramps 05/09/2009 MADL PLATFORM CONSULTANT, ETELVINA L 787.02 Nausea 05/09/2009 MADL PLATFORM CONSULTANT, ETELVINA L 327.52 Organic Sleep-related Leg Cramps 05/09/2009 MADL PLATFORM CONSULTANT, ETELVINA L 787.02 Nausea 05/09/2009 SALGUERO DO, LADONNA K 327.52 Organic Sleep-related Leg Cramps 05/09/2009 SALGUERO DO, LADONNA K 787.02 Nausea 05/09/2009 SALGUERO DO, LADONNA K 327.52 Organic Sleep-related Leg Cramps 05/09/2009 SALGUERO DO, LADONNA K 787.02 Nausea 05/09/2009 MADL PLATFORM CONSULTANT, ETELVINA L 327.52 Organic Sleep-related Leg Cramps 05/09/2009 MADL PLATFORM CONSULTANT, ETELVINA L 787.02 Nausea 05/09/2009 SALGUERO DO, LADONNA K 327.52 Organic Sleep-related Leg Cramps 05/09/2009 SALGUERO DO, LADONNA K 787.02 Nausea 05/09/2009 MADL PLATFORM CONSULTANT, ETELVINA L 327.52 Organic Sleep-related Leg Cramps 05/09/2009 MADL PLATFORM CONSULTANT, ETELVINA L 787.02 Nausea 07/02/2009 LAURIE MORA [...] K 780.4 Dizziness And Giddiness 07/02/2009 MADL PLATFORM CONSULTANT, ETELVINA L 465.9 Acute Upper Respiratory Infections Of Unspecified Site 07/02/2009 MADL PLATFORM CONSULTANT, ETELVINA L 780.4 Dizziness And Giddiness 07/02/2009 MADL PLATFORM CONSULTANT, ETELVINA L 465.9 Acute Upper Respiratory Infections Of Unspecified Site 07/02/2009 MADL PLATFORM CONSULTANT, ETELVINA L 780.4 Dizziness And Giddiness 07/02/2009 MADL PLATFORM CONSULTANT, ETELVINA L 465.9 Acute Upper Respiratory Infections Of Unspecified Site 07/02/2009 MADL PLATFORM CONSULTANT, ETELVINA L 780.4 Dizziness And Giddiness 07/02/2009 SALGUERO DO, LADONNA K 465.9 Acute Upper Respiratory Infections Of Unspecified Site 07/02/2009 SALGUERO DO, LADONNA K 780.4 Dizziness And Giddiness 07/02/2009 SALGUERO DO, LADONNA K 465.9 Acute Upper Respiratory Infections Of Unspecified Site 07/02/2009 SALGUERO DO, LADONNA K 780.4 Dizziness And Giddiness 07/02/2009 MADL PLATFORM CONSULTANT, ETELVINA L 465.9 Acute Upper Respiratory Infections Of Unspecified Site 07/02/2009 MADL PLATFORM CONSULTANT, ETELVINA L 780.4 Dizziness And Giddiness 07/02/2009 MADL PLATFORM CONSULTANT, ETELVINA L 465.9 Acute Upper Respiratory Infections Of Unspecified Site 07/02/2009 MADL PLATFORM CONSULTANT, ETELVINA L 780.4 Dizziness And Giddiness 07/02/2009 MADL PLATFORM CONSULTANT, ETELVINA L 465.9 Acute Upper Respiratory Infections Of Unspecified Site 07/02/2009 MADL PLATFORM CONSULTANT, ETELVINA L 780.4 Dizziness And Giddiness 07/02/2009 MADL PLATFORM CONSULTANT, ETELVINA L 465.9 Acute Upper Respiratory Infections Of Unspecified Site 07/02/2009 MADL PLATFORM CONSULTANT, ETELVINA L 780.4 Dizziness And Giddiness 07/02/2009 MADL PLATFORM CONSULTANT, ETELVINA L 465.9 Acute Upper Respiratory Infections Of Unspecified Site 07/02/2009 MADL PLATFORM CONSULTANT, ETELVINA L 780.4 Dizziness And Giddiness 07/02/2009 MADL PLATFORM CONSULTANT, ETELVINA L 465.9 Acute Upper Respiratory Infections Of Unspecified Site 07/02/2009 MADL PLATFORM CONSULTANT, ETELVINA L 780.4 Dizziness And Giddiness 07/02/2009 MADL PLATFORM CONSULTANT, ETELVINA L 465.9 Acute Upper Respiratory Infections Of Unspecified Site 07/02/2009 MADL PLATFORM CONSULTANT, ETELVINA L 780.4 Dizziness And Giddiness 07/02/2009 SALGUERO DO, LADONNA K 465.9 Acute Upper Respiratory Infections Of Unspecified Site 07/02/2009 SALGUERO DO, LADONNA K 780.4 Dizziness And Giddiness 07/02/2009 SALGUERO DO, LADONNA K 465.9 Acute Upper Respiratory Infections Of Unspecified Site 07/02/2009 SALGUERO DO, LADONNA K 780.4 Dizziness And Giddiness 07/02/2009 MADL PLATFORM CONSULTANT, ETELVINA L 465.9 Acute Upper Respiratory Infections Of Unspecified Site 07/02/2009 MADL PLATFORM CONSULTANT, ETELVINA L 780.4 Dizziness And Giddiness 07/02/2009 SALGUERO DO, LADONNA K 465.9 Acute Upper Respiratory Infections Of Unspecified Site 07/02/2009 SALGUERO DO, LADONNA K 780.4 Dizziness And Giddiness 07/02/2009 MADL PLATFORM CONSULTANT, ETELVINA L 465.9 Acute Upper Respiratory Infections Of Unspecified Site 07/02/2009 MADL PLATFORM CONSULTANT, ETELVINA L 780.4 Dizziness And Giddiness 08/10/2009 MORGAN PLATFORM CONSULTANT, LAURIE S 780.52 INSOMNIA UNSPECIFIED 08/10/2009 MORGAN PLATFORM CONSULTANT, LAURIE S 783.1 Abnormal Weight Gain 08/10/2009 780.52 Insomnia Unspecified 08/10/2009 783.1 Abnormal Weight Gain 08/10/2009 MORGAN PLATFORM CONSULTANT, LAURIE S 780.52 Insomnia Unspecified 08/10/2009 MORGAN PLATFORM CONSULTANT, LAURIE S 783.1 Abnormal Weight Gain 08/10/2009 MORGAN PLATFORM CONSULTANT, LAURIE S 780.52 Insomnia Unspecified 08/10/2009 MORGAN PLATFORM CONSULTANT, LAURIE S 783.1 Abnormal Weight Gain 08/10/2009 [...] K 783.1 Abnormal Weight Gain 08/10/2009 MADL PLATFORM CONSULTANT, ETELVINA L 780.52 Insomnia Unspecified 08/10/2009 MADL PLATFORM CONSULTANT, ETELVINA L 783.1 Abnormal Weight Gain 08/10/2009 MADL PLATFORM CONSULTANT, ETELVINA L 780.52 Insomnia Unspecified 08/10/2009 MADL PLATFORM CONSULTANT, ETELVINA L 783.1 Abnormal Weight Gain 08/10/2009 MADL PLATFORM CONSULTANT, ETELVINA L 780.52 Insomnia Unspecified 08/10/2009 MADL PLATFORM CONSULTANT, ETELVINA L 783.1 Abnormal Weight Gain 08/10/2009 SALGUERO DO, LADONNA K 780.52 Insomnia Unspecified 08/10/2009 SALGUERO DO, LADONNA K 783.1 Abnormal Weight Gain 08/10/2009 SALGUERO DO, LADONNA K 780.52 Insomnia Unspecified 08/10/2009 SALGUERO DO, LADONNA K 783.1 Abnormal Weight Gain 08/10/2009 MADL PLATFORM CONSULTANT, ETELVINA L 780.52 Insomnia Unspecified 08/10/2009 MADL PLATFORM CONSULTANT, ETELVINA L 783.1 Abnormal Weight Gain 08/10/2009 MADL PLATFORM CONSULTANT, ETELVINA L 780.52 Insomnia Unspecified 08/10/2009 MADL PLATFORM CONSULTANT, ETELVINA L 783.1 Abnormal Weight Gain 08/10/2009 MADL PLATFORM CONSULTANT, ETELVINA L 780.52 Insomnia Unspecified 08/10/2009 MADL PLATFORM CONSULTANT, ETELVINA L 783.1 Abnormal Weight Gain 08/10/2009 MADL PLATFORM CONSULTANT, ETELVINA L 780.52 Insomnia Unspecified 08/10/2009 MADL PLATFORM CONSULTANT, ETELVINA L 783.1 Abnormal Weight Gain 08/10/2009 MADL PLATFORM CONSULTANT, ETELVINA L 780.52 Insomnia Unspecified 08/10/2009 MADL PLATFORM CONSULTANT, ETELVINA L 783.1 Abnormal Weight Gain 08/10/2009 MADL PLATFORM CONSULTANT, ETELVINA L 780.52 Insomnia Unspecified 08/10/2009 MAD[employer] PLATFORM CONSULTANT, ETELVINA L 783.1 Abnormal Weight Gain 08/10/2009 MADL PLATFORM CONSULTANT, ETELVINA L 780.52 Insomnia Unspecified 08/10/2009 MADL PLATFORM CONSULTANT, ETELVINA L 783.1 Abnormal Weight Gain 08/10/2009 SALGUERO DO, LADONNA K 780.52 Insomnia Unspecified 08/10/2009 SALGUERO DO, LADONNA K 783.1 Abnormal Weight Gain 08/10/2009 SALGUERO DO, LADONNA K 780.52 Insomnia Unspecified 08/10/2009 SALGUERO DO, LADONNA K 783.1 Abnormal Weight Gain 08/10/2009 MADL PLATFORM CONSULTANT, ETELVINA L 780.52 Insomnia Unspecified 08/10/2009 MADL PLATFORM CONSULTANT, ETELVINA L 783.1 Abnormal Weight Gain 08/10/2009 SALGUERO DO, LADONNA K 780.52 Insomnia Unspecified 08/10/2009 SALGUERO DO, LADONNA K 783.1 Abnormal Weight Gain 08/10/2009 MADL PLATFORM CONSULTANT, ETELVINA L 780.52 Insomnia Unspecified 08/10/2009 MADL PLATFORM CONSULTANT, ETELVINA L 783.1 Abnormal Weight Gain 09/04/2009 LAURIE MORA APRN S 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 09/04/2009 LAURIE MORA APRN S 780.79 Feelings Of Weakness 09/04/2009 LAURIE MORA APRN S 786.05 shortness of breath 09/04/2009 LAURIE MORA APRN S 786.2 Cough 09/04/2009 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 09/04/2009 780.79 Feelings Of Weakness 09/04/2009 786.05 Shortness Of Breath 09/04/2009 786.2 Cough 09/04/2009 MORGAN PLATFORM CONSULTANTPALOMA BowserNDA S 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 09/04/2009 MORGAN PLATFORM CONSULTANT, LAURIE S 780.79 Feelings Of Weakness 09/04/2009 MORGAN PLATFORM CONSULTANT, LAURIE S 786.05 Shortness Of Breath 09/04/2009 MORGAN PLATFORM CONSULTANT, LAURIE S 786.2 Cough 09/04/2009 MORGAN PLATFORM CONSULTANT, LAURIE S 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 09/04/2009 MORGAN PLATFORM CONSULTANT, LAURIE S 780.79 Feelings Of Weakness 09/04/2009 MORGAN PLATFORM CONSULTANTPALOMA BowserNDA S 786.05 Shortness Of Breath 09/04/2009 [...] 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 09/04/2009 SALGUERO DO, LDAONNA K 780.79 Feelings Of Weakness 09/04/2009 SALGUERO [...] DO, LADONNA K 786.2 Cough 09/04/2009 MADL PLATFORM CONSULTANT, ETELVINA L 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 09/04/2009 MADL PLATFORM CONSULTANT, ETELVINA L 780.79 Feelings Of Weakness 09/04/2009 MADL PLATFORM CONSULTANT, ETELVINA L 786.05 Shortness Of Breath 09/04/2009 MADL PLATFORM CONSULTANT, ETELVINA L 786.2 Cough 09/04/2009 MADL PLATFORM CONSULTANT, ETELVINA L 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 09/04/2009 MADL PLATFORM CONSULTANT, ETELVINA L 780.79 Feelings Of Weakness 09/04/2009 MADL PLATFORM CONSULTANT, ETELVINA L 786.05 Shortness Of Breath 09/04/2009 MADL PLATFORM CONSULTANT, ETELVINA L 786.2 Cough 09/04/2009 MADL PLATFORM CONSULTANT, ETELVINA L 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 09/04/2009 MADL PLATFORM CONSULTANT, ETELVINA L 780.79 Feelings Of Weakness 09/04/2009 MADL PLATFORM CONSULTANT, ETELVINA L 786.05 Shortness Of Breath 09/04/2009 MADL PLATFORM CONSULTANT, ETELVINA L 786.2 Cough 09/04/2009 SALGUERO DO, [...] DO, LADONNA K 786.2 Cough 09/04/2009 MADL PLATFORM CONSULTANT, ETELVINA L 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 09/04/2009 MADL PLATFORM CONSULTANT, ETELVINA L 780.79 Feelings Of Weakness 09/04/2009 MADL PLATFORM CONSULTANT, ETELVINA L 786.05 Shortness Of Breath 09/04/2009 MADL PLATFORM CONSULTANT, ETELVINA L 786.2 Cough 09/04/2009 MADL PLATFORM CONSULTANT, ETELVINA L 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 09/04/2009 MADL PLATFORM CONSULTANT, ETELVINA L 780.79 Feelings Of Weakness 09/04/2009 MADL PLATFORM CONSULTANT, ETELVINA L 786.05 Shortness Of Breath 09/04/2009 MADL PLATFORM CONSULTANT, ETELVINA L 786.2 Cough 09/04/2009 MADL PLATFORM CONSULTANT, ETELVINA L 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 09/04/2009 MADL PLATFORM CONSULTANT, ETELVINA L 780.79 Feelings Of Weakness 09/04/2009 MADL PLATFORM CONSULTANT, ETELVINA L 786.05 Shortness Of Breath 09/04/2009 MADL PLATFORM CONSULTANT, ETELVINA L 786.2 Cough 09/04/2009 MADL PLATFORM CONSULTANT, ETELVINA L 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 09/04/2009 MADL PLATFORM CONSULTANT, ETELVINA L 780.79 Feelings Of Weakness 09/04/2009 MADL PLATFORM CONSULTANT, ETELVINA L 786.05 Shortness Of Breath 09/04/2009 MADL PLATFORM CONSULTANT, ETELVINA L 786.2 Cough 09/04/2009 MADL PLATFORM CONSULTANT, ETELVINA L 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 09/04/2009 MADL PLATFORM CONSULTANT, ETELVINA L 780.79 Feelings Of Weakness 09/04/2009 MADL PLATFORM CONSULTANT, ETELVINA L 786.05 Shortness Of Breath 09/04/2009 MADL PLATFORM CONSULTANT, ETELVINA L 786.2 Cough 09/04/2009 MADL PLATFORM CONSULTANT, ETELVINA L 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 09/04/2009 MADL PLATFORM CONSULTANT, ETELVINA L 780.79 Feelings Of Weakness 09/04/2009 MADL PLATFORM CONSULTANT, ETELVINA L 786.05 Shortness Of Breath 09/04/2009 MADL PLATFORM CONSULTANT, ETELVINA L 786.2 Cough 09/04/2009 MADL PLATFORM CONSULTANT, ETELVINA L 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 09/04/2009 MADL PLATFORM CONSULTANT, ETELVINA L 780.79 Feelings Of Weakness 09/04/2009 MADL PLATFORM CONSULTANT, ETELVINA L 786.05 Shortness Of Breath 09/04/2009 MADL PLATFORM CONSULTANT, ETELVINA L 786.2 Cough 09/04/2009 SALGUERO DO, [...] DO, LADONNA K 786.2 Cough 09/04/2009 MADL PLATFORM CONSULTANT, ETELVINA L 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 09/04/2009 MADL PLATFORM CONSULTANT, ETELVINA L 780.79 Feelings Of Weakness 09/04/2009 MADL PLATFORM CONSULTANT, ETELVINA L 786.05 Shortness Of Breath 09/04/2009 MADL PLATFORM CONSULTANT, ETELVINA L 786.2 Cough 09/04/2009 SALGUERO DO, LADONNA K 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 09/04/2009 SALGUERO DO, LADONNA K 780.79 Feelings Of Weakness 09/04/2009 SALGUERO DO, LADONNA K 786.05 Shortness Of Breath 09/04/2009 SALGUERO DO, LADONNA K 786.2 Cough 09/04/2009 MADL PLATFORM CONSULTANT, ETELVINA L 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 09/04/2009 MADL PLATFORM CONSULTANT, ETELVINA L 780.79 Feelings Of Weakness 09/04/2009 MADL PLATFORM CONSULTANT, ETELVINA L 786.05 Shortness Of Breath 09/04/2009 MADL PLATFORM CONSULTANT, ETELVINA L 786.2 Cough 09/07/2009 MORGAN PLATFORM CONSULTANT, LAURIE S 079.99 Viral Syndrome 09/07/2009 079.99 Viral Syndrome 09/07/2009 MORGAN PLATFORM CONSULTANT, LAURIE S 079.99 Viral Syndrome 09/07/2009 MORGAN PLATFORM CONSULTANT, LAURIE S 079.99 Viral Syndrome 09/07/2009 ROMELIA [...] PRAKASHA K 079.99 Viral Syndrome 09/07/2009 MADL PLATFORM CONSULTANT, ETELVINA L 079.99 Viral Syndrome 09/07/2009 MADL PLATFORM CONSULTANT, ETELVINA L 079.99 Viral Syndrome 09/07/2009 MADL PLATFORM CONSULTANT, ETELVINA L 079.99 Viral Syndrome 09/07/2009 SALGUERO DO, LADONNA K 079.99 Viral Syndrome 09/07/2009 SALGUERO DO, LADONNA K 079.99 Viral Syndrome 09/07/2009 MADL PLATFORM CONSULTANT, ETELVINA L 079.99 Viral Syndrome 09/07/2009 MADL PLATFORM CONSULTANT, ETELVINA L 079.99 Viral Syndrome 09/07/2009 MADL PLATFORM CONSULTANT, ETELVINA L 079.99 Viral Syndrome 09/07/2009 MADL PLATFORM CONSULTANT, ETELVINA L 079.99 Viral Syndrome 09/07/2009 MADL PLATFORM CONSULTANT, ETELVINA L 079.99 Viral Syndrome 09/07/2009 MADL PLATFORM CONSULTANT, ETELVINA L 079.99 Viral Syndrome 09/07/2009 MADL PLATFORM CONSULTANT, ETELVINA L 079.99 Viral Syndrome 09/07/2009 SALGUERO DO, LADONNA K 079.99 Viral Syndrome 09/07/2009 SALGUERO DO, LADONNA K 079.99 Viral Syndrome 09/07/2009 MADL PLATFORM CONSULTANT, ETELVINA L 079.99 Viral Syndrome 09/07/2009 SALGUERO DO, LADONNA K 079.99 Viral Syndrome 09/07/2009 MADL PLATFORM CONSULTANT, ETELVINA L 079.99 Viral Syndrome 10/12/2009 LAURIE [...] DO, LADONNA K 799.02 Hypoxemia 10/12/2009 MADL PLATFORM CONSULTANT ETELVINA L 719.58 Stiffness Of Joint, Not Elsewhere Classified, Other Specified Sites 10/12/2009 MADL PLATFORM CONSULTANT, ETELVINA L 799.02 Hypoxemia 10/12/2009 MADL PLATFORM CONSULTANT, ETELVINA L 719.58 Stiffness Of Joint, Not Elsewhere Classified, Other Specified Sites 10/12/2009 MADL PLATFORM CONSULTANT, ETELVINA L 799.02 Hypoxemia 10/12/2009 MADL PLATFORM CONSULTANT, ETELVINA L 719.58 Stiffness Of Joint, Not Elsewhere Classified, Other Specified Sites 10/12/2009 MADL PLATFORM CONSULTANT, ETELVINA L 799.02 Hypoxemia 10/12/2009 SALGUERO DO, LADONNA K 719.58 Stiffness Of Joint, Not Elsewhere Classified, Other Specified Sites 10/12/2009 SALGUERO DO, LADONNA K 799.02 Hypoxemia 10/12/2009 SALGUERO DO, LADONNA K 719.58 Stiffness Of Joint, Not Elsewhere Classified, Other Specified Sites 10/12/2009 SALGUERO DO, LADONNA K 799.02 Hypoxemia 10/12/2009 MADL PLATFORM CONSULTANT, ETELVINA L 719.58 Stiffness Of Joint, Not Elsewhere Classified, Other Specified Sites 10/12/2009 MADL PLATFORM CONSULTANT, ETELVINA L 799.02 Hypoxemia 10/12/2009 MADL PLATFORM CONSULTANT, ETELVINA L 719.58 Stiffness Of Joint, Not Elsewhere Classified, Other Specified Sites 10/12/2009 MADL PLATFORM CONSULTANT, ETELVINA L 799.02 Hypoxemia 10/12/2009 MADL PLATFORM CONSULTANT, ETELVINA L 719.58 Stiffness Of Joint, Not Elsewhere Classified, Other Specified Sites 10/12/2009 MADL PLATFORM CONSULTANT, ETELVINA L 799.02 Hypoxemia 10/12/2009 MADL PLATFORM CONSULTANT, ETELVINA L 719.58 Stiffness Of Joint, Not Elsewhere Classified, Other Specified Sites 10/12/2009 MADL PLATFORM CONSULTANT, ETELVINA L 799.02 Hypoxemia 10/12/2009 MADL PLATFORM CONSULTANT, ETELVINA L 719.58 Stiffness Of Joint, Not Elsewhere Classified, Other Specified Sites 10/12/2009 MADL PLATFORM CONSULTANT, ETELVINA L 799.02 Hypoxemia 10/12/2009 MADL PLATFORM CONSULTANT, ETELVINA L 719.58 Stiffness Of Joint, Not Elsewhere Classified, Other Specified Sites 10/12/2009 MADL PLATFORM CONSULTANT, ETELVINA L 799.02 Hypoxemia 10/12/2009 MADL PLATFORM CONSULTANT, ETELVINA L 719.58 Stiffness Of Joint, Not Elsewhere Classified, Other Specified Sites 10/12/2009 MADL PLATFORM CONSULTANT, ETELVINA L 799.02 Hypoxemia 10/12/2009 SALGUERO DO, LADONNA K 719.58 Stiffness Of Joint, Not Elsewhere Classified, Other Specified Sites 10/12/2009 SALGUERO DO, LADONNA K 799.02 Hypoxemia 10/12/2009 SALGUERO DO, LADONNA K 719.58 Stiffness Of Joint, Not Elsewhere Classified, Other Specified Sites 10/12/2009 SALGUERO DO, LADONNA K 799.02 Hypoxemia 10/12/2009 MADL PLATFORM CONSULTANT, ETELVINA L 719.58 Stiffness Of Joint, Not Elsewhere Classified, Other Specified Sites 10/12/2009 MADL PLATFORM CONSULTANT, ETELVINA L 799.02 Hypoxemia 10/12/2009 SALGUERO DO, LADONNA K 719.58 Stiffness Of Joint, Not Elsewhere Classified, Other Specified Sites 10/12/2009 SALGUERO DO, LADONNA K 799.02 Hypoxemia 10/12/2009 MADL PLATFORM CONSULTANT, ETELVINA L 719.58 Stiffness Of Joint, Not Elsewhere Classified, Other Specified Sites 10/12/2009 MADL PLATFORM CONSULTANT, ETELVINA L 799.02 Hypoxemia 11/07/2009 PALOMA MORA APRNNDA S 300.00 ANXIETY UNSPEC 11/07/2009 PALOMA MORA APRNNDA S 305.1 NICOTINE DEPENDENCE - CONTINUOUS 11/07/2009 300.00 Anxiety Unspec 11/07/2009 305.1 NICOTINE DEPENDENCE - CONTINUOUS 11/07/2009 MORGAN PLATFORM CONSULTANTPALOMA BowserNDA S 300.00 Anxiety Unspec 11/07/2009 MORGAN [...] 305.1 NICOTINE DEPENDENCE - CONTINUOUS 11/07/2009 MADL PLATFORM CONSULTANT, ETELVINA L 300.00 Anxiety Unspec 11/07/2009 MADL PLATFORM CONSULTANT, ETELVINA L 305.1 NICOTINE DEPENDENCE - CONTINUOUS 11/07/2009 MADL PLATFORM CONSULTANT, ETELVINA L 300.00 Anxiety Unspec 11/07/2009 MADL PLATFORM CONSULTANT, ETELVINA L 305.1 NICOTINE DEPENDENCE - CONTINUOUS 11/07/2009 MADL PLATFORM CONSULTANT, ETELVINA L 300.00 Anxiety Unspec 11/07/2009 MADL PLATFORM CONSULTANT, ETELVINA L 305.1 NICOTINE DEPENDENCE - CONTINUOUS 11/07/2009 SALGUERO DO, LADONNA K 300.00 Anxiety Unspec 11/07/2009 SALGUERO DO, LADONNA K 305.1 NICOTINE DEPENDENCE - CONTINUOUS 11/07/2009 SALGUERO DO, LADONNA K 300.00 Anxiety Unspec 11/07/2009 SALGUERO DO, LADONNA K 305.1 NICOTINE DEPENDENCE - CONTINUOUS 11/07/2009 MADL PLATFORM CONSULTANT, ETELVINA L 300.00 Anxiety Unspec 11/07/2009 MADL PLATFORM CONSULTANT, ETELVINA L 305.1 NICOTINE DEPENDENCE - CONTINUOUS 11/07/2009 MADL PLATFORM CONSULTANT, ETELVINA L 300.00 Anxiety Unspec 11/07/2009 MADL PLATFORM CONSULTANT, ETELVINA L 305.1 NICOTINE DEPENDENCE - CONTINUOUS 11/07/2009 MADL PLATFORM CONSULTANT, ETELVINA L 300.00 Anxiety Unspec 11/07/2009 MADL PLATFORM CONSULTANT, ETELVINA L 305.1 NICOTINE DEPENDENCE - CONTINUOUS 11/07/2009 MADL PLATFORM CONSULTANT, ETELVINA L 300.00 Anxiety Unspec 11/07/2009 MADL PLATFORM CONSULTANT, ETELVINA L 305.1 NICOTINE DEPENDENCE - CONTINUOUS 11/07/2009 MADL PLATFORM CONSULTANT, ETELVINA L 300.00 Anxiety Unspec 11/07/2009 MADL PLATFORM CONSULTANT, ETELVINA L 305.1 NICOTINE DEPENDENCE - CONTINUOUS 11/07/2009 MADL PLATFORM CONSULTANT, ETELVINA L 300.00 Anxiety Unspec 11/07/2009 MADL PLATFORM CONSULTANT, ETELVINA L 305.1 NICOTINE DEPENDENCE - CONTINUOUS 11/07/2009 MADL PLATFORM CONSULTANT, ETELVINA L 300.00 Anxiety Unspec 11/07/2009 MADL PLATFORM CONSULTANT, ETELVINA L 305.1 NICOTINE DEPENDENCE - CONTINUOUS 11/07/2009 SALGUERO DO, LADONNA K 300.00 Anxiety Unspec 11/07/2009 SALGUERO DO, LADONNA K 305.1 NICOTINE DEPENDENCE - CONTINUOUS 11/07/2009 SALGUERO DO, LADONNA K 300.00 Anxiety Unspec 11/07/2009 SALGUERO DO, LADONNA K 305.1 NICOTINE DEPENDENCE - CONTINUOUS 11/07/2009 MADL PLATFORM CONSULTANT, ETELVINA L 300.00 Anxiety Unspec 11/07/2009 MADL PLATFORM CONSULTANT, ETELVINA L 305.1 NICOTINE DEPENDENCE - CONTINUOUS 11/07/2009 SALGUERO DO, LADONNA K 300.00 Anxiety Unspec 11/07/2009 SALGUERO DO, LADONNA K 305.1 NICOTINE DEPENDENCE - CONTINUOUS 11/07/2009 MADL PLATFORM CONSULTANT, ETELVINA L 300.00 Anxiety Unspec 11/07/2009 MADL PLATFORM CONSULTANT, ETELVINA L 305.1 NICOTINE DEPENDENCE - CONTINUOUS 01/31/2010 LAURIE MORA APRN S 719.43 Joint Pain, Localized In The Wrist 01/31/2010 LAURIE MORA APRN S 782.0 Numbness (hypesthesia) 01/31/2010 719.43 Joint Pain, Localized In The Wrist 01/31/2010 782.0 Numbness ( hypesthesia) 01/31/2010 LAURIE MORA APRN 719.43 Joint Pain, Localized In The Wrist 01/31/2010 MORGAN PLATFORM CONSULTANT, LAURIE S 782.0 Numbness (hypesthesia) 01/31/2010 MORGAN PLATFORM CONSULTANT, LAURIE S 719.43 Joint Pain, Localized In [...] LADONNA K 782.0 Numbness (hypesthesia) 01/31/2010 MADL PLATFORM CONSULTANT, ETELVINA L 719.43 Joint Pain, Localized In The Wrist 01/31/2010 MADL PLATFORM CONSULTANT, ETELVINA L 782.0 Numbness (hypesthesia) 01/31/2010 MADL PLATFORM CONSULTANT, ETELVINA L 719.43 Joint Pain, Localized In The Wrist 01/31/2010 MADL PLATFORM CONSULTANT, ETELVINA L 782.0 Numbness (hypesthesia) 01/31/2010 MADL PLATFORM CONSULTANT, ETELVINA L 719.43 Joint Pain, Localized In The Wrist 01/31/2010 MADL PLATFORM CONSULTANT, ETELVINA L 782.0 Numbness (hypesthesia) 01/31/2010 SALGUERO DO, LADONNA K 719.43 Joint Pain, Localized In The Wrist 01/31/2010 SALGUERO DO, LADONNA K 782.0 Numbness (hypesthesia) 01/31/2010 SALGUERO DO, LADONNA K 719.43 Joint Pain, Localized In The Wrist 01/31/2010 SALGUERO DO, LADONNA K 782.0 Numbness (hypesthesia) 01/31/2010 MADL PLATFORM CONSULTANT, ETELVINA L 719.43 Joint Pain, Localized In The Wrist 01/31/2010 MADL PLATFORM CONSULTANT, ETELVINA L 782.0 Numbness (hypesthesia) 01/31/2010 MADL PLATFORM CONSULTANT, ETELVINA L 719.43 Joint Pain, Localized In The Wrist 01/31/2010 MADL PLATFORM CONSULTANT, ETELVINA L 782.0 Numbness (hypesthesia) 01/31/2010 MADL PLATFORM CONSULTANT, ETELVINA L 719.43 Joint Pain, Localized In The Wrist 01/31/2010 MADL PLATFORM CONSULTANT, ETELVINA L 782.0 Numbness (hypesthesia) 01/31/2010 MADL PLATFORM CONSULTANT, ETELVINA L 719.43 Joint Pain, Localized In The Wrist 01/31/2010 MADL PLATFORM CONSULTANT, ETELVINA L 782.0 Numbness (hypesthesia) 01/31/2010 MADL PLATFORM CONSULTANT, ETELVINA L 719.43 Joint Pain, Localized In The Wrist 01/31/2010 MADL PLATFORM CONSULTANT, ETELVINA L 782.0 Numbness (hypesthesia) 01/31/2010 MADL PLATFORM CONSULTANT, ETELVINA L 719.43 Joint Pain, Localized In The Wrist 01/31/2010 MADL PLATFORM CONSULTANT, ETELVINA L 782.0 Numbness (hypesthesia) 01/31/2010 MADL PLATFORM CONSULTANT, ETELVINA L 719.43 Joint Pain, Localized In The Wrist 01/31/2010 MADL PLATFORM CONSULTANT, ETELVINA L 782.0 Numbness (hypesthesia) 01/31/2010 SALGUERO DO, LADONNA K 719.43 Joint Pain, Localized In The Wrist 01/31/2010 SALGUERO DO, LADONNA K 782.0 Numbness (hypesthesia) 01/31/2010 SALGUERO DO, LADONNA K 719.43 Joint Pain, Localized In The Wrist 01/31/2010 SALGUERO DO, LADONNA K 782.0 Numbness (hypesthesia) 01/31/2010 MADL PLATFORM CONSULTANT, ETELVINA L 719.43 Joint Pain, Localized In The Wrist 01/31/2010 MADL PLATFORM CONSULTANT, ETELVINA L 782.0 Numbness (hypesthesia) 01/31/2010 SALGUERO DO LADONNA K 719.43 Joint Pain, Localized In The Wrist 01/31/2010 SALGUERO DO, LADONNA K 782.0 Numbness (hypesthesia) 01/31/2010 MADL PLATFORM CONSULTANTHAMMAD BowserA L 719.43 Joint Pain, Localized In The Wrist 01/31/2010 MADL PLATFORM CONSULTANT, ETELVINA L 782.0 Numbness (hypesthesia) 03/14/2010 Ot [...] K 517.3 Acute Chest Syndrome 04/02/2010 MADMaxine PLATFORM CONSULTANTHAMMAD BowserA L 517.3 Acute Chest Syndrome 04/02/2010 MADL PLATFORM CONSULTANT, ETELVINA L 517.3 Acute Chest Syndrome 04/02/2010 MADL PLATFORM CONSULTANT, ETELVINA L 517.3 Acute Chest Syndrome 04/02/2010 SALGUERO DO, LADONNA K 517.3 Acute Chest Syndrome 04/02/2010 SALGUERO DO, LADONNA K 517.3 Acute Chest Syndrome 04/02/2010 MADL PLATFORM CONSULTANT, ETELVINA L 517.3 Acute Chest Syndrome 04/02/2010 MADL PLATFORM CONSULTANT, ETELVINA L 517.3 Acute Chest Syndrome 04/02/2010 MADL PLATFORM CONSULTANT, ETELVINA L 517.3 Acute Chest Syndrome 04/02/2010 MADL PLATFORM CONSULTANT, ETELVINA L 517.3 Acute Chest Syndrome 04/02/2010 MADL PLATFORM CONSULTANT, ETELVINA L 517.3 Acute Chest Syndrome 04/02/2010 MADL PLATFORM CONSULTANT, ETELVINA L 517.3 Acute Chest Syndrome 04/02/2010 MADL PLATFORM CONSULTANT, ETELVINA L 517.3 Acute Chest Syndrome 04/02/2010 SALGUERO DO, LADONNA K 517.3 Acute Chest Syndrome 04/02/2010 SALGUERO DO, LADONNA K 517.3 Acute Chest Syndrome 04/02/2010 MADL PLATFORM CONSULTANT, ETELVINA L 517.3 Acute Chest Syndrome 04/02/2010 SALGUERO DO, LADONNA K 517.3 Acute Chest Syndrome 04/02/2010 MADL PLATFORM CONSULTANT, ETELVINA L 517.3 Acute Chest Syndrome 04/14/2010 Ot 305.1 04/14/2010 Ot 491.21 04/14/2010 Ot 786.05 05/20/2010 MORGAN PLATFORM CONSULTANT, LAURIE S 272.4 HYPERLIPIDEMIA 05/20/2010 MORGAN PLATFORM CONSULTANT, LAURIE S 414.01 CAD 05/20/2010 272.4 HYPERLIPIDEMIA 05/20/2010 414.01 CAD 05/20/2010 MORGAN PLATFORM CONSULTANT, LAURIE S 272.4 HYPERLIPIDEMIA 05/20/2010 MORGAN PLATFORM CONSULTANT, LAURIE S 414.01 CAD 05/20/2010 MORGAN PLATFORM CONSULTANT, LAURIE S 272.4 HYPERLIPIDEMIA 05/20/2010 MORGAN HUDSONN, [...] 414.01 CORONARY ARTERY STENOSIS MULTI-VESSEL 05/20/2010 MADL PLATFORM CONSULTANT, ETELVNIA L 272.4 HYPERLIPIDEMIA 05/20/2010 MADL PLATFORM CONSULTANT, ETELVINA L 414.01 CORONARY ARTERY STENOSIS MULTI-VESSEL 05/20/2010 MADL PLATFORM CONSULTANT, ETELVINA L 272.4 HYPERLIPIDEMIA 05/20/2010 MADL PLATFORM CONSULTANT, ETELVINA L 414.01 CORONARY ARTERY STENOSIS MULTI-VESSEL 05/20/2010 MADL PLATFORM CONSULTANT, ETELVINA L 272.4 HYPERLIPIDEMIA 05/20/2010 MADL PLATFORM CONSULTANT, ETELVINA L 414.01 CORONARY ARTERY STENOSIS MULTI-VESSEL 05/20/2010 SALGUERO DO, LADONNA K 272.4 HYPERLIPIDEMIA 05/20/2010 SALGUERO DO, LADONNA K 414.01 CORONARY ARTERY STENOSIS MULTI-VESSEL 05/20/2010 SALGUERO DO, LADONNA K 272.4 HYPERLIPIDEMIA 05/20/2010 SALGUERO DO, LADONNA K 414.01 CORONARY ARTERY STENOSIS MULTI-VESSEL 05/20/2010 MADL PLATFORM CONSULTANT, ETELVINA L 272.4 HYPERLIPIDEMIA 05/20/2010 MADL PLATFORM CONSULTANT, ETELVINA L 414.01 CORONARY ARTERY STENOSIS MULTI-VESSEL 05/20/2010 MADL PLATFORM CONSULTANT, ETELVINA L 272.4 HYPERLIPIDEMIA 05/20/2010 MADL PLATFORM CONSULTANT, ETELVINA L 414.01 CORONARY ARTERY STENOSIS MULTI-VESSEL 05/20/2010 MADL PLATFORM CONSULTANT, ETELVINA L 272.4 HYPERLIPIDEMIA 05/20/2010 MADL PLATFORM CONSULTANT, ETELVINA L 414.01 CORONARY ARTERY STENOSIS MULTI-VESSEL 05/20/2010 MADL PLATFORM CONSULTANT, ETELVINA L 272.4 HYPERLIPIDEMIA 05/20/2010 MADL PLATFORM CONSULTANT, ETELVINA L 414.01 CORONARY ARTERY STENOSIS MULTI-VESSEL 05/20/2010 MADL PLATFORM CONSULTANT, ETELVINA L 272.4 HYPERLIPIDEMIA 05/20/2010 MADL PLATFORM CONSULTANT, ETELVINA L 414.01 CORONARY ARTERY STENOSIS MULTI-VESSEL 05/20/2010 MADL PLATFORM CONSULTANT, ETELVINA L 272.4 HYPERLIPIDEMIA 05/20/2010 MADL PLATFORM CONSULTANT, ETELVINA L 414.01 CORONARY ARTERY STENOSIS MULTI-VESSEL 05/20/2010 MADL PLATFORM CONSULTANT, ETELVINA L 272.4 HYPERLIPIDEMIA 05/20/2010 MADL PLATFORM CONSULTANT, ETELVINA L 414.01 CORONARY ARTERY STENOSIS MULTI-VESSEL 05/20/2010 SALGUERO DO, LADONNA K 272.4 HYPERLIPIDEMIA 05/20/2010 SALGUERO DO, LADONNA K 414.01 CORONARY ARTERY STENOSIS MULTI-VESSEL 05/20/2010 SALGUERO DO, LADONNA K 272.4 HYPERLIPIDEMIA 05/20/2010 SALGUERO DO, LADONNA K 414.01 CORONARY ARTERY STENOSIS MULTI-VESSEL 05/20/2010 MADL PLATFORM CONSULTANT, ETELVINA L 272.4 HYPERLIPIDEMIA 05/20/2010 MADL PLATFORM CONSULTANT, ETELVINA L 414.01 CORONARY ARTERY STENOSIS MULTI-VESSEL 05/20/2010 SALGUERO DO, LADONNA K 272.4 HYPERLIPIDEMIA 05/20/2010 SALGUERO DO, LADONNA K 414.01 CORONARY ARTERY STENOSIS MULTI-VESSEL 05/20/2010 MADL PLATFORM CONSULTANT, ETELVINA L 272.4 HYPERLIPIDEMIA 05/20/2010 MADL PLATFORM CONSULTANT, ETELVINA L 414.01 CORONARY ARTERY STENOSIS MULTI-VESSEL [...] 356.9 UNSPECIFIED IDIOPATHIC PERIPHERAL NEUROPATHY 07/31/2010 MADL PLATFORM CONSULTANT, ETELVINA L 356.9 UNSPECIFIED IDIOPATHIC PERIPHERAL NEUROPATHY 07/31/2010 MADL PLATFORM CONSULTANT, ETELVINA L 356.9 UNSPECIFIED IDIOPATHIC PERIPHERAL NEUROPATHY 07/31/2010 MADL PLATFORM CONSULTANT, ETELVINA L 356.9 UNSPECIFIED IDIOPATHIC PERIPHERAL NEUROPATHY 07/31/2010 SALGUERO DO, LADONNA K 356.9 UNSPECIFIED IDIOPATHIC PERIPHERAL NEUROPATHY 07/31/2010 SALGUERO DO, LADONNA K 356.9 UNSPECIFIED IDIOPATHIC PERIPHERAL NEUROPATHY 07/31/2010 MADL PLATFORM CONSULTANT, ETELVINA L 356.9 UNSPECIFIED IDIOPATHIC PERIPHERAL NEUROPATHY 07/31/2010 MADL PLATFORM CONSULTANT, ETELVINA L 356.9 UNSPECIFIED IDIOPATHIC PERIPHERAL NEUROPATHY 07/31/2010 MADL PLATFORM CONSULTANT, ETELVINA L 356.9 UNSPECIFIED IDIOPATHIC PERIPHERAL NEUROPATHY 07/31/2010 MADL PLATFORM CONSULTANT, ETELVINA L 356.9 UNSPECIFIED IDIOPATHIC PERIPHERAL NEUROPATHY 07/31/2010 MADL PLATFORM CONSULTANT, ETELVINA L 356.9 UNSPECIFIED IDIOPATHIC PERIPHERAL NEUROPATHY 07/31/2010 MADL PLATFORM CONSULTANT, ETELVINA L 356.9 UNSPECIFIED IDIOPATHIC PERIPHERAL NEUROPATHY 07/31/2010 MADL PLATFORM CONSULTANT, ETELVINA L 356.9 UNSPECIFIED IDIOPATHIC PERIPHERAL NEUROPATHY 07/31/2010 SALGUERO DO, LADONNA K 356.9 UNSPECIFIED IDIOPATHIC PERIPHERAL NEUROPATHY 07/31/2010 SALGUERO DO, LADONNA K 356.9 UNSPECIFIED IDIOPATHIC PERIPHERAL NEUROPATHY 07/31/2010 MADL PLATFORM CONSULTANT, ETELVINA L 356.9 UNSPECIFIED IDIOPATHIC PERIPHERAL NEUROPATHY 07/31/2010 SALGUERO DO, LADONNA K 356.9 UNSPECIFIED IDIOPATHIC PERIPHERAL NEUROPATHY 07/31/2010 MADL PLATFORM CONSULTANT, ETELVINA L 356.9 UNSPECIFIED IDIOPATHIC PERIPHERAL NEUROPATHY 08/01/2010 MORGAN PLATFORM CONSULTANT, LAURIE S 791.0 Microalbuminuria 08/01/2010 791.0 Microalbuminuria 08/01/2010 MORGAN PLATFORM CONSULTANT, LAURIE S 791.0 Microalbuminuria 08/01/2010 MORGAN PLATFORM CONSULTANT, LAURIE S 791.0 Microalbuminuria 08/01/2010 ROMELIA FISCHER [...] DO, LADONNA K 791.0 Microalbuminuria 08/01/2010 MADL PLATFORM CONSULTANT, ETELVINA L 791.0 Microalbuminuria 08/01/2010 MADL PLATFORM CONSULTANT, ETELVINA L 791.0 Microalbuminuria 08/01/2010 MADL PLATFORM CONSULTANT, ETELVINA L 791.0 Microalbuminuria 08/01/2010 SALGUERO DO, LADONNA K 791.0 Microalbuminuria 08/01/2010 SALGUEOR DO, LADONNA K 791.0 Microalbuminuria 08/01/2010 MADL PLATFORM CONSULTANT, ETELVINA L 791.0 Microalbuminuria 08/01/2010 MADL PLATFORM CONSULTANT, ETELVINA L 791.0 Microalbuminuria 08/01/2010 MADL PLATFORM CONSULTANT, ETELVINA L 791.0 Microalbuminuria 08/01/2010 MADL PLATFORM CONSULTANT, ETELVINA L 791.0 Microalbuminuria 08/01/2010 MADL PLATFORM CONSULTANT, ETELVINA L 791.0 Microalbuminuria 08/01/2010 MADL PLATFORM CONSULTANT, ETELVINA L 791.0 Microalbuminuria 08/01/2010 MADL PLATFORM CONSULTANT, ETELVINA L 791.0 Microalbuminuria 08/01/2010 SALGUERO DO, LADONNA K 791.0 Microalbuminuria 08/01/2010 SALGUERO DO, LADONNA K 791.0 Microalbuminuria 08/01/2010 MADL PLATFORM CONSULTANT, ETELVINA L 791.0 Microalbuminuria 08/01/2010 SALGUERO DO, LADONNA K 791.0 Microalbuminuria 08/01/2010 MADL PLATFORM CONSULTANT, ETELVINA L 791.0 Microalbuminuria 08/05/2010 LAURIE MORA [...] Spondylosis Without Myelopathy 08/05/2010 KARYN OLVERA, BYRON Bruenr 721.0 Cervical Spondylosis Without Myelopathy 08/05/2010 SALGUERO [...] 721.0 Cervical Spondylosis Without Myelopathy 08/05/2010 MADL PLATFORM CONSULTANT, ETELVINA L 721.0 Cervical Spondylosis Without Myelopathy 08/05/2010 MADL PLATFORM CONSULTANT, ETELVINA L 721.0 Cervical Spondylosis Without Myelopathy 08/05/2010 MADL PLATFORM CONSULTANT, ETELVINA L 721.0 Cervical Spondylosis Without Myelopathy 08/05/2010 SALGUERO DO, LADONNA K 721.0 Cervical Spondylosis Without Myelopathy 08/05/2010 SALGUERO DO, LADONNA K 721.0 Cervical Spondylosis Without Myelopathy 08/05/2010 MADL PLATFORM CONSULTANT, ETELVINA L 721.0 Cervical Spondylosis Without Myelopathy 08/05/2010 MADL PLATFORM CONSULTANT, ETELVINA L 721.0 Cervical Spondylosis Without Myelopathy 08/05/2010 MADL PLATFORM CONSULTANT, ETELVINA L 721.0 Cervical Spondylosis Without Myelopathy 08/05/2010 MADL PLATFORM CONSULTANT, ETELVINA L 721.0 Cervical Spondylosis Without Myelopathy 08/05/2010 MADL PLATFORM CONSULTANT, ETELVINA L 721.0 Cervical Spondylosis Without Myelopathy 08/05/2010 MADL PLATFORM CONSULTANT, ETELVINA L 721.0 Cervical Spondylosis Without Myelopathy 08/05/2010 MADL PLATFORM CONSULTANT, ETELVINA L 721.0 Cervical Spondylosis Without Myelopathy 08/05/2010 SALGUERO DO, LADONNA K 721.0 Cervical Spondylosis Without Myelopathy 08/05/2010 SALGUERO DO, LADONNA K 721.0 Cervical Spondylosis Without Myelopathy 08/05/2010 HUG[employer] PLATFORM CONSULTANT, ETELVINA Goodman 721.0 Cervical Spondylosis Without Myelopathy 08/05/2010 LADONNA SALGUERO DO K 721.0 Cervical Spondylosis Without Myelopathy 08/05/2010 MADL PLATFORM CONSULTANT, ETELVINA Goodman 721.0 Cervical Spondylosis Without Myelopathy 08/07/2010 Ot 847.0 08/07/2010 Ot 847.2 08/07/2010 Ot 959.09 08/07/2010 Ot E000.8 08/07/2010 Ot E849.0 08/07/2010 Ot E884.2 08/13/2010 MORGAN HARRIS LAURIE S 441.4 ABDOMINAL ANEURYSM WITHOUT MENTION OF RUPTURE 08/13/2010 MORGAN PLATFORM CONSULTANT, LAURIE S 724.2 LUMBAGO 08/13/2010 441.4 Abdominal Aneurysm Without Mention Of Rupture 08/13/2010 724.2 LUMBAGO 08/13/2010 MORGAN HARRIS LAURIE S 441.4 Abdominal Aneurysm Without Mention Of Rupture 08/13/2010 MORGAN PLATFORM CONSULTANT, LAURIE S 724.2 LUMBAGO 08/13/2010 MORGAN PLATFORM CONSULTANT, LAURIE S 441.4 Abdominal Aneurysm Without Mention [...] Abdominal Aneurysm Without Mention Of Rupture 08/13/2010 SALGUREO DO, LADONNA K 724.2 lower back pain 08/13/2010 SALGUERO DO, LADONNA K 441.4 Abdominal Aneurysm Without Mention Of Rupture 08/13/2010 SALGUERO DO, LADONNA K 724.2 lower back pain 08/13/2010 MADL PLATFORM CONSULTANT, ETELVINA L 441.4 Abdominal Aneurysm Without Mention Of Rupture 08/13/2010 MADL PLATFORM CONSULTANT, ETELVINA L 724.2 lower back pain 08/13/2010 MADL PLATFORM CONSULTANT, ETELVINA L 441.4 Abdominal Aneurysm Without Mention Of Rupture 08/13/2010 MADL PLATFORM CONSULTANT, ETELVINA L 724.2 lower back pain 08/13/2010 MADL PLATFORM CONSULTANT, ETELVINA L 441.4 Abdominal Aneurysm Without Mention Of Rupture 08/13/2010 MADL PLATFORM CONSULTANT, ETELVINA L 724.2 lower back pain 08/13/2010 SALGUERO DO, LADONNA K 441.4 Abdominal Aneurysm Without Mention Of Rupture 08/13/2010 SALGUERO DO, LADONNA K 724.2 lower back pain 08/13/2010 SALGUERO DO, LADONNA K 441.4 Abdominal Aneurysm Without Mention Of Rupture 08/13/2010 SALGUERO DO, LADONNA K 724.2 lower back pain 08/13/2010 MADL PLATFORM CONSULTANT, ETELVINA L 441.4 Abdominal Aneurysm Without Mention Of Rupture 08/13/2010 MADL PLATFORM CONSULTANT, ETELVINA L 724.2 lower back pain 08/13/2010 MADL PLATFORM CONSULTANT, ETELVINA L 441.4 Abdominal Aneurysm Without Mention Of Rupture 08/13/2010 MADL PLATFORM CONSULTANT, ETELVINA L 724.2 lower back pain 08/13/2010 MADL PLATFORM CONSULTANT, ETELVINA L 441.4 Abdominal Aneurysm Without Mention Of Rupture 08/13/2010 MADL PLATFORM CONSULTANT, ETELVINA L 724.2 lower back pain 08/13/2010 MADL PLATFORM CONSULTANT, ETELVINA L 441.4 Abdominal Aneurysm Without Mention Of Rupture 08/13/2010 MADL PLATFORM CONSULTANT, ETELVINA L 724.2 lower back pain 08/13/2010 MADL PLATFORM CONSULTANT, ETELVINA L 441.4 Abdominal Aneurysm Without Mention Of Rupture 08/13/2010 MADL PLATFORM CONSULTANT, ETELVINA L 724.2 lower back pain 08/13/2010 MADL PLATFORM CONSULTANT, ETELVINA L 441.4 Abdominal Aneurysm Without Mention Of Rupture 08/13/2010 MADL PLATFORM CONSULTANT, ETELVINA L 724.2 lower back pain 08/13/2010 MADL PLATFORM CONSULTANT, ETELVINA L 441.4 Abdominal Aneurysm Without Mention Of Rupture 08/13/2010 MADL PLATFORM CONSULTANT, ETELVINA L 724.2 lower back pain 08/13/2010 SALGUERO DO, LADONNA K 441.4 Abdominal Aneurysm Without Mention Of Rupture 08/13/2010 SALGUERO DO, LADONNA K 724.2 lower back pain 08/13/2010 TERE SALGUERO DOA K 441.4 Abdominal Aneurysm Without Mention Of Rupture 08/13/2010 NOEMY DOTEREA K 724.2 lower back pain 08/13/2010 MADL PLATFORM CONSULTANTETELVINA Bowser L 441.4 Abdominal Aneurysm Without Mention Of Rupture 08/13/2010 HUGOL ETELVINA HARRIS L 724.2 lower back pain 08/13/2010 TERE SALGUERO DOA K 441.4 Abdominal Aneurysm Without Mention Of Rupture 08/13/2010 TERE SALUGERO DOA K 724.2 lower back pain 08/13/2010 MADL PLATFORM CONSULTANTHAMMAD BowserA L 441.4 Abdominal Aneurysm Without Mention [...] Pain In Joint Site Unspecified 12/12/2010 MORGAN PLATFORM CONSULTANT, LAURIE S 724.5 Back Pain, General 12/12/2010 MORGAN PLATFORM CONSULTANT, LAURIE S 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 12/12/2010 MORGAN PLATFORM CONSULTANT, LAURIE S 729.5 Arm Pain 12/12/2010 MORGAN PLATFORM CONSULTANT, LAURIE S 719.40 Pain In Joint Site Unspecified 12/12/2010 MORGAN PLATFORM CONSULTANT, LAURIE S 724.5 Back Pain, General 12/12/2010 MORGAN PLATFORM CONSULTANT, LAURIE S 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 12/12/2010 MORGAN PLATFORM CONSULTANT, LAURIE S 729.5 Arm Pain 12/12/2010 AMADO [...] Bruner 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 12/12/2010 BYRON OBSS MD 729.5 Arm Pain 12/12/2010 719.40 Pain [...] LADONNA K 729.5 Arm Pain 12/12/2010 MADL PLATFORM CONSULTANT, ETELVINA L 719.40 Pain In Joint Site Unspecified 12/12/2010 MADL PLATFORM CONSULTANT, ETELVINA L 724.5 Back Pain, General 12/12/2010 MADL PLATFORM CONSULTANT, ETELVINA L 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 12/12/2010 MADL PLATFORM CONSULTANT, ETELVINA L 729.5 Arm Pain 12/12/2010 MADL PLATFORM CONSULTANT, ETELVINA L 719.40 Pain In Joint Site Unspecified 12/12/2010 MADL PLATFORM CONSULTANT, ETELVINA L 724.5 Back Pain, General 12/12/2010 MADL PLATFORM CONSULTANT, ETELVINA L 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 12/12/2010 MADL PLATFORM CONSULTANT, ETELVINA L 729.5 Arm Pain 12/12/2010 MADL PLATFORM CONSULTANT, ETELVINA L 719.40 Pain In Joint Site Unspecified 12/12/2010 MADL PLATFORM CONSULTANT, ETELVINA L 724.5 Back Pain, General 12/12/2010 MADL PLATFORM CONSULTANT, ETELVINA L 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 12/12/2010 MADL PLATFORM CONSULTANT, ETELVINA L 729.5 Arm Pain 12/12/2010 SALGUERO [...] LADONNA K 729.5 Arm Pain 12/12/2010 MADL PLATFORM CONSULTANT, ETELVINA L 719.40 Pain In Joint Site Unspecified 12/12/2010 MADL PLATFORM CONSULTANT, ETELVINA L 724.5 Back Pain, General 12/12/2010 MADL PLATFORM CONSULTANT, ETELVINA L 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 12/12/2010 MADL PLATFORM CONSULTANT, ETELVINA L 729.5 Arm Pain 12/12/2010 MADL PLATFORM CONSULTANT, ETELVINA L 719.40 Pain In Joint Site Unspecified 12/12/2010 MADL PLATFORM CONSULTANT, ETELVINA L 724.5 Back Pain, General 12/12/2010 MADL PLATFORM CONSULTANT, ETELVINA L 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 12/12/2010 MADL PLATFORM CONSULTANT, ETELVINA L 729.5 Arm Pain 12/12/2010 MADL PLATFORM CONSULTANT, ETELVINA L 719.40 Pain In Joint Site Unspecified 12/12/2010 MADL PLATFORM CONSULTANT, ETELVINA L 724.5 Back Pain, General 12/12/2010 MADL PLATFORM CONSULTANT, ETELVINA L 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 12/12/2010 MADL PLATFORM CONSULTANT, ETELVINA L 729.5 Arm Pain 12/12/2010 MADL PLATFORM CONSULTANT, ETELVINA L 719.40 Pain In Joint Site Unspecified 12/12/2010 MADL PLATFORM CONSULTANT, ETELVINA L 724.5 Back Pain, General 12/12/2010 MADL PLATFORM CONSULTANT, ETELVINA L 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 12/12/2010 MADL PLATFORM CONSULTANT, ETELVINA L 729.5 Arm Pain 12/12/2010 MADL PLATFORM CONSULTANT, ETELVINA L 719.40 Pain In Joint Site Unspecified 12/12/2010 MADL PLATFORM CONSULTANT, ETELVINA L 724.5 Back Pain, General 12/12/2010 MADL PLATFORM CONSULTANT, ETELVINA L 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 12/12/2010 MADL PLATFORM CONSULTANT, ETELVINA L 729.5 Arm Pain 12/12/2010 MADL PLATFORM CONSULTANT, ETELVINA L 719.40 Pain In Joint Site Unspecified 12/12/2010 MADL PLATFORM CONSULTANT, ETELVINA L 724.5 Back Pain, General 12/12/2010 MADL PLATFORM CONSULTANT, ETELVINA L 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 12/12/2010 MADL PLATFORM CONSULTANT, ETELVINA L 729.5 Arm Pain 12/12/2010 MADL PLATFORM CONSULTANT, ETELVINA L 719.40 Pain In Joint Site Unspecified 12/12/2010 MADL PLATFORM CONSULTANT, ETELVINA L 724.5 Back Pain, General 12/12/2010 MADL PLATFORM CONSULTANT, ETELVINA L 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 12/12/2010 MADL PLATFORM CONSULTANT, ETELVINA L 729.5 Arm Pain 12/12/2010 SALGUERO [...] LADONNA K 729.5 Arm Pain 12/12/2010 MADL PLATFORM CONSULTANT, ETELVINA L 719.40 Pain In Joint Site Unspecified 12/12/2010 MADL PLATFORM CONSULTANT, ETELVINA L 724.5 Back Pain, General 12/12/2010 MADL PLATFORM CONSULTANT, ETELVINA L 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 12/12/2010 MADL PLATFORM CONSULTANT, ETELVINA L 729.5 Arm Pain 12/12/2010 SALGUERO DO, LADONNA K 719.40 Pain In Joint Site Unspecified 12/12/2010 SALGUERO DO, LADONNA K 724.5 Back Pain, General 12/12/2010 SALGUERO DO, LADONNA K 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 12/12/2010 SALGUERO DO, LADONNA K 729.5 Arm Pain 12/12/2010 MADL PLATFORM CONSULTANT, ETELVINA L 719.40 Pain In Joint Site Unspecified 12/12/2010 MADL PLATFORM CONSULTANT, ETELVINA L 724.5 Back Pain, General 12/12/2010 MADL PLATFORM CONSULTANT, ETELVINA L 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 12/12/2010 MADL PLATFORM CONSULTANT, ETELVINA L 729.5 Arm Pain 01/22/2011 Ot [...] V68.1 ISSUE OF REPEAT PRESCRIPTIONS 06/17/2011 ROMELIA FISHCER MD V68.1 ISSUE OF REPEAT PRESCRIPTIONS 06/17/2011 [...] V68.1 ISSUE OF REPEAT PRESCRIPTIONS 06/17/2011 MADL PLATFORM CONSULTANTHAMMAD BowserA L V68.1 ISSUE OF REPEAT PRESCRIPTIONS 06/17/2011 SALGUERO DOTEREA K V68.1 ISSUE OF REPEAT PRESCRIPTIONS 06/17/2011 SALGUERO DOTEREA K V68.1 ISSUE OF REPEAT PRESCRIPTIONS 06/17/2011 MADL PLATFORM CONSULTANTANDREZETELVINA L V68.1 ISSUE OF REPEAT PRESCRIPTIONS 06/17/2011 MADL PLATFORM CONSULTANTANDREZETELVINA L V68.1 ISSUE OF REPEAT PRESCRIPTIONS 06/17/2011 MADL PLATFORM CONSULTANT, ETELVINA L V68.1 ISSUE OF REPEAT PRESCRIPTIONS 06/17/2011 MADL PLATFORM CONSULTANTSARAETELVINA L V68.1 ISSUE OF REPEAT PRESCRIPTIONS 06/17/2011 MADL PLATFORM CONSULTANT, ETELVINA L V68.1 ISSUE OF REPEAT PRESCRIPTIONS 06/17/2011 MADL PLATFORM CONSULTANTANDREZ BowserNYA L V68.1 ISSUE OF REPEAT PRESCRIPTIONS [...] TY 07/14/2011 Ot 414.01 CORONARY ATHEROSCLEROSIS OF [place] CORON 07/14/2011 Ot 496 CHR AIRWAY OBSTRUCT [...] (3 Yrs And Above, Im) 07/31/2011 MADL PLATFORM CONSULTANT, ETELVINA L V04.81 Flu Dx (3 Yrs And Above, Im) 07/31/2011 MADL PLATFORM CONSULTANT, ETELVINA L V04.81 Flu Dx (3 Yrs And Above, Im) 07/31/2011 MADL PLATFORM CONSULTANT, ETELVINA L V04.81 Flu Dx (3 Yrs And Above, Im) 07/31/2011 SALGUERO DO, LADONNA K V04.81 Flu Dx (3 Yrs And Above, Im) 07/31/2011 SALGUERO DO, LADONNA K V04.81 Flu Dx (3 Yrs And Above, Im) 07/31/2011 MADL PLATFORM CONSULTANT, ETELVINA L V04.81 Flu Dx (3 Yrs And Above, Im) 07/31/2011 MADL PLATFORM CONSULTANT, ETELVINA L V04.81 Flu Dx (3 Yrs And Above, Im) 07/31/2011 MADL PLATFORM CONSULTANT, ETELVINA L V04.81 Flu Dx (3 Yrs And Above, Im) 07/31/2011 MADL PLATFORM CONSULTANT, ETELVINA L V04.81 Flu Dx (3 Yrs And Above, Im) 07/31/2011 MADL PLATFORM CONSULTANT, ETELVINA L V04.81 Flu Dx (3 Yrs And Above, Im) 07/31/2011 MADL PLATFORM CONSULTANT, ETELVINA L V04.81 Flu Dx (3 Yrs And Above, Im) 07/31/2011 MADL PLATFORM CONSULTANT, ETELVINA L V04.81 Flu Dx (3 Yrs And Above, Im) 07/31/2011 SALGUERO DO, LADONNA K V04.81 Flu Dx (3 Yrs And Above, Im) 07/31/2011 SALGUERO DO, LADONNA K V04.81 Flu Dx (3 Yrs And Above, Im) 07/31/2011 MADL PLATFORM CONSULTANT, ETELVINA L V04.81 Flu Dx (3 Yrs And Above, Im) 07/31/2011 SALGUERO DO, LADONNA K V04.81 Flu Dx (3 Yrs And Above, Im) 07/31/2011 MADL PLATFORM CONSULTANT, ETELVINA L V04.81 Flu Dx (3 Yrs And Above, Im) 08/27/2011 MORGAN PLATFORM CONSULTANT, LAURIE S 780.50 SLEEP DISTURBANCE, UNSPECIFIED 08/27/2011 780.50 Sleep Disturbance, Unspecified 08/27/2011 MORGAN PLATFORM CONSULTANT, LAURIE S 780.50 Sleep Disturbance, Unspecified 08/27/2011 MORGAN PLATFORM CONSULTANT, LAURIE S 780.50 Sleep Disturbance, Unspecified 08/27/2011 [...] K 780.50 Sleep Disturbance, Unspecified 08/27/2011 MADL PLATFORM CONSULTANT, ETELVINA L 780.50 Sleep Disturbance, Unspecified 08/27/2011 MADL PLATFORM CONSULTANT, ETELVINA L 780.50 Sleep Disturbance, Unspecified 08/27/2011 MADL PLATFORM CONSULTANT, ETELVINA L 780.50 Sleep Disturbance, Unspecified 08/27/2011 SALGUERO DO, LADONNA K 780.50 Sleep Disturbance, Unspecified 08/27/2011 SALGUERO DO, LADONNA K 780.50 Sleep Disturbance, Unspecified 08/27/2011 MADL PLATFORM CONSULTANT, ETELVINA L 780.50 Sleep Disturbance, Unspecified 08/27/2011 MADL PLATFORM CONSULTANT, ETELVINA L 780.50 Sleep Disturbance, Unspecified 08/27/2011 MADL PLATFORM CONSULTANT, ETELVINA L 780.50 Sleep Disturbance, Unspecified 08/27/2011 MADL PLATFORM CONSULTANT, ETELVINA L 780.50 Sleep Disturbance, Unspecified 08/27/2011 MADL PLATFORM CONSULTANT, ETELVINA L 780.50 Sleep Disturbance, Unspecified 08/27/2011 MADL PLATFORM CONSULTANT, ETELVINA L 780.50 Sleep Disturbance, Unspecified 08/27/2011 MADL PLATFORM CONSULTANT, ETELVINA L 780.50 Sleep Disturbance, Unspecified 08/27/2011 SALGUERO DO, LADONNA K 780.50 Sleep Disturbance, Unspecified 08/27/2011 SALGUERO DO, LADONNA K 780.50 Sleep Disturbance, Unspecified 08/27/2011 MADL PLATFORM CONSULTANT, ETELVINA L 780.50 Sleep Disturbance, Unspecified 08/27/2011 SALGUERO DO, LADONNA K 780.50 Sleep Disturbance, Unspecified 08/27/2011 MADL PLATFORM CONSULTANT, ETELVINA L 780.50 Sleep Disturbance, Unspecified 09/26/2011 MORGAN PLATFORM CONSULTANT, LAURIE S 788.41 URINARY FREQUENCY 09/26/2011 MORGAN PLATFORM CONSULTANT, LAURIE S 788.63 URINARY URGENCY 09/26/2011 788.41 Urinary Frequency 09/26/2011 788.63 Urinary Urgency 09/26/2011 MORGAN PLATFORM CONSULTANT, LAURIE S 788.41 Urinary Frequency 09/26/2011 MORGAN PLATFORM CONSULTANT, LAURIE S 788.63 Urinary Urgency 09/26/2011 MORGAN PLATFORM CONSULTANT, LAURIE S 788.41 Urinary Frequency 09/26/2011 MORGAN PLATFORM CONSULTANT, LAURIE S 788.63 Urinary Urgency 09/26/2011 ROMELIA FISCEHR MD 788.41 Urinary Frequency 09/26/2011 ROMELIA FISCHER [...] DO, LADONNA K 788.41 Urinary Frequency 09/26/2011 SLAGUERO DO, LADONNA K 788.63 Urinary Urgency 09/26/2011 SALGUERO DO, LADONNA K 788.41 Urinary Frequency 09/26/2011 SALGUERO DO, LADONNA K 788.63 Urinary Urgency 09/26/2011 MADL PLATFORM CONSULTANT, ETELVINA L 788.41 Urinary Frequency 09/26/2011 MADL PLATFORM CONSULTANT, ETELVINA L 788.63 Urinary Urgency 09/26/2011 MADL PLATFORM CONSULTANT, ETELVINA L 788.41 Urinary Frequency 09/26/2011 MADL PLATFORM CONSULTANT, ETELVINA L 788.63 Urinary Urgency 09/26/2011 MADL PLATFORM CONSULTANT, ETELVINA L 788.41 Urinary Frequency 09/26/2011 MADL PLATFORM CONSULTANT, ETELVINA L 788.63 Urinary Urgency 09/26/2011 SALGUERO DO, LADONNA K 788.41 Urinary Frequency 09/26/2011 SALGUERO DO, LADONNA K 788.63 Urinary Urgency 09/26/2011 SALGUERO DO, LADONNA K 788.41 Urinary Frequency 09/26/2011 SALGUERO DO, LADONNA K 788.63 Urinary Urgency 09/26/2011 MADL PLATFORM CONSULTANT, ETELVINA L 788.41 Urinary Frequency 09/26/2011 MADL PLATFORM CONSULTANT, ETELVINA L 788.63 Urinary Urgency 09/26/2011 MADL PLATFORM CONSULTANT, ETELVINA L 788.41 Urinary Frequency 09/26/2011 MADL PLATFORM CONSULTANT, ETELVINA L 788.63 Urinary Urgency 09/26/2011 MADL PLATFORM CONSULTANT, ETELVINA L 788.41 Urinary Frequency 09/26/2011 MADL PLATFORM CONSULTANT, ETELVINA L 788.63 Urinary Urgency 09/26/2011 MADL PLATFORM CONSULTANT, ETELVINA L 788.41 Urinary Frequency 09/26/2011 MADL PLATFORM CONSULTANT, ETELVINA L 788.63 Urinary Urgency 09/26/2011 MADL PLATFORM CONSULTANT, ETELVINA L 788.41 Urinary Frequency 09/26/2011 MADL PLATFORM CONSULTANT, ETELVINA L 788.63 Urinary Urgency 09/26/2011 MADL PLATFORM CONSULTANT, ETELVINA L 788.41 Urinary Frequency 09/26/2011 MADL PLATFORM CONSULTANT, ETELVINA L 788.63 Urinary Urgency 09/26/2011 MADL PLATFORM CONSULTANT, ETELVINA L 788.41 Urinary Frequency 09/26/2011 MADL PLATFORM CONSULTANT, ETELVINA L 788.63 Urinary Urgency 09/26/2011 SALGUERO DO, LADONNA K 788.41 Urinary Frequency 09/26/2011 SALGUERO DO, LADONNA K 788.63 Urinary Urgency 09/26/2011 SALGUERO DO, LADONNA K 788.41 Urinary Frequency 09/26/2011 SALGUERO DO, LADONNA K 788.63 Urinary Urgency 09/26/2011 MADL PLATFORM CONSULTANT, ETELVINA L 788.41 Urinary Frequency 09/26/2011 MADL PLATFORM CONSULTANT, ETELVINA L 788.63 Urinary Urgency 09/26/2011 SALGUERO DO, LADONNA K 788.41 Urinary Frequency 09/26/2011 SALGUERO DO, LADONNA K 788.63 Urinary Urgency 09/26/2011 MADL PLATFORM CONSULTANT, ETELVINA L 788.41 Urinary Frequency 09/26/2011 MADL PLATFORM CONSULTANT, ETELVINA L 788.63 Urinary Urgency 10/18/2011 MORGAN [...] PAIN 11/11/2011 Ot 414.01 CORONARY ATHEROSCLEROSIS OF [place] CORON 11/11/2011 Ot 424.1 AORTIC VALVE DISORDER [...] LADONNA K 461.9 Sinusitis Acute 12/04/2011 MADL PLATFORM CONSULTANT, ETELVINA L 461.9 Sinusitis Acute 12/04/2011 MADL PLATFORM CONSULTANT, ETELVINA L 461.9 Sinusitis Acute 12/04/2011 MADL PLATFORM CONSULTANT, ETELVINA L 461.9 Sinusitis Acute 12/04/2011 SALGUERO DO, LADONNA K 461.9 Sinusitis Acute 12/04/2011 SALGUERO DO, LADONNA K 461.9 Sinusitis Acute 12/04/2011 MADL PLATFORM CONSULTANT, ETELVINA L 461.9 Sinusitis Acute 12/04/2011 MADL PLATFORM CONSULTANT, ETELVINA L 461.9 Sinusitis Acute 12/04/2011 MADL PLATFORM CONSULTANT, ETELVINA L 461.9 Sinusitis Acute 12/04/2011 MADL PLATFORM CONSULTANT, ETELVINA L 461.9 Sinusitis Acute 12/04/2011 MADL PLATFORM CONSULTANT, ETELVINA L 461.9 Sinusitis Acute 12/04/2011 MADL PLATFORM CONSULTANT, ETELVINA L 461.9 Sinusitis Acute 12/04/2011 MADL PLATFORM CONSULTANT, ETELVINA L 461.9 Sinusitis Acute 12/04/2011 SALGUERO DO, LADONNA K 461.9 Sinusitis Acute 12/04/2011 SALGUERO DO, LADONNA K 461.9 Sinusitis Acute 12/04/2011 MADL PLATFORM CONSULTANT, ETELVINA L 461.9 Sinusitis Acute 12/04/2011 SALGUERO DO, LADONNA K 461.9 Sinusitis Acute 12/04/2011 MADL PLATFORM CONSULTANT, ETELVINA L 461.9 Sinusitis Acute 12/19/2011 MORGAN PLATFORM CONSULTANT, LAURIE S 486 PNEUMONIA UNSPECIFIED 12/19/2011 MORGAN PLATFORM CONSULTANT, LAURIE S 786.2 COUGH 12/19/2011 486 Pneumonia Unspecified 12/19/2011 786.2 Cough 12/19/2011 MORGAN PLATFORM CONSULTANT, LAURIE S 486 Pneumonia Unspecified 12/19/2011 MORGAN PLATFORM CONSULTANT, LAURIE S 786.2 Cough 12/19/2011 MORGAN PLATFORM CONSULTANT, LAURIE S 486 Pneumonia Unspecified 12/19/2011 MORGAN PLATFORM CONSULTANT, LAURIE S 786.2 Cough 12/19/2011 ROMELIA FISCHER [...] SALGUERO DO, LADONNA K 786.2 Cough 12/19/2011 BYRNO BOSS MD M 486 Pneumonia Unspecified 12/19/2011 [...] DO, LADONNA K 786.2 Cough 12/19/2011 MADL PLATFORM CONSULTANT, ETELVINA L 486 Pneumonia Unspecified 12/19/2011 MADL PLATFORM CONSULTANT, ETELVINA L 786.2 Cough 12/19/2011 MADL PLATFORM CONSULTANT, ETELVINA L 486 Pneumonia Unspecified 12/19/2011 MADL PLATFORM CONSULTANT, ETELVINA L 786.2 Cough 12/19/2011 MADL PLATFORM CONSULTANT, ETELVINA L 486 Pneumonia Unspecified 12/19/2011 MADL PLATFORM CONSULTANT, ETELVINA L 786.2 Cough 12/19/2011 SALGUERO DO, LADONNA K 486 Pneumonia Unspecified 12/19/2011 SALGUERO DO, LADONNA K 786.2 Cough 12/19/2011 SALGUERO DO, LADONNA K 486 Pneumonia Unspecified 12/19/2011 SALGUERO DO, LADONNA K 786.2 Cough 12/19/2011 MADL PLATFORM CONSULTANT, ETELVINA L 486 Pneumonia Unspecified 12/19/2011 MADL PLATFORM CONSULTANT, ETELVINA L 786.2 Cough 12/19/2011 MADL PLATFORM CONSULTANT, ETELVINA L 486 Pneumonia Unspecified 12/19/2011 MADL PLATFORM CONSULTANT, ETELVINA L 786.2 Cough 12/19/2011 MADL PLATFORM CONSULTANT, ETELVINA L 486 Pneumonia Unspecified 12/19/2011 MADL PLATFORM CONSULTANT, ETELVINA L 786.2 Cough 12/19/2011 MADL PLATFORM CONSULTANT, ETELVINA L 486 Pneumonia Unspecified 12/19/2011 MADL PLATFORM CONSULTANT, ETELVINA L 786.2 Cough 12/19/2011 MADL PLATFORM CONSULTANT, ETELVINA L 486 Pneumonia Unspecified 12/19/2011 MADL PLATFORM CONSULTANT, ETELVINA L 786.2 Cough 12/19/2011 MADL PLATFORM CONSULTANT, ETELVINA L 486 Pneumonia Unspecified 12/19/2011 MADL PLATFORM CONSULTANT, ETELVINA L 786.2 Cough 12/19/2011 MADL PLATFORM CONSULTANT, ETELVINA L 486 Pneumonia Unspecified 12/19/2011 MADL PLATFORM CONSULTANT, ETELVINA L 786.2 Cough 12/19/2011 SALGUERO DO, LADONNA K 486 Pneumonia Unspecified 12/19/2011 SALGUERO DO, LADONNA K 786.2 Cough 12/19/2011 SALGUERO DO, LADONNA K 486 Pneumonia Unspecified 12/19/2011 SALGUERO DO, LADONNA K 786.2 Cough 12/19/2011 MADL PLATFORM CONSULTANT, ETELVINA L 486 Pneumonia Unspecified 12/19/2011 MADL PLATFORM CONSULTANT, ETELVINA L 786.2 Cough 12/19/2011 SALGUERO DO, LADONNA K 486 Pneumonia Unspecified 12/19/2011 SALGUERO DO, LADONNA K 786.2 Cough 12/19/2011 MADL PLATFORM CONSULTANT, ETELVINA L 486 Pneumonia Unspecified 12/19/2011 MADL PLATFORM CONSULTANT, ETELVINA L 786.2 Cough 01/06/2012 MORGAN HARRIS LAURIE S 491.9 BRONCHITIS, CHRONIC UNSPEC 01/06/2012 PALOMA MORA APRNNDA S 780.79 MALAISE AND FATIGUE 01/06/2012 491.9 Bronchitis, Chronic Unspec 01/06/2012 780.79 Malaise And Fatigue 01/06/2012 MORGAN PLATFORM CONSULTANT, LAURIE S 491.9 Bronchitis, Chronic Unspec 01/06/2012 MORGAN PLATFORM CONSULTANT, LAURIE S 780.79 Malaise And Fatigue 01/06/2012 MORGAN PLATFORM CONSULTANT, LAURIE S 491.9 Bronchitis, Chronic Unspec 01/06/2012 MORGAN PLATFORM CONSULTANT, LAURIE S 780.79 Malaise And Fatigue 01/06/2012 [...] K 780.79 Malaise And Fatigue 01/06/2012 MADL PLATFORM CONSULTANT, ETELVINA L 491.9 Bronchitis, Chronic Unspec 01/06/2012 MADL PLATFORM CONSULTANT, ETELVINA L 780.79 Malaise And Fatigue 01/06/2012 MADL PLATFORM CONSULTANT, ETELVINA L 491.9 Bronchitis, Chronic Unspec 01/06/2012 MADL PLATFORM CONSULTANT, ETELVINA L 780.79 Malaise And Fatigue 01/06/2012 MADL PLATFORM CONSULTANT, ETELVINA L 491.9 Bronchitis, Chronic Unspec 01/06/2012 MADL PLATFORM CONSULTANT, ETELVINA L 780.79 Malaise And Fatigue 01/06/2012 SALGUERO DO, LADONNA K 491.9 Bronchitis, Chronic Unspec 01/06/2012 SALGUERO DO, LADONNA K 780.79 Malaise And Fatigue 01/06/2012 SALGUERO DO, LADONNA K 491.9 Bronchitis, Chronic Unspec 01/06/2012 SALGUERO DO, LADONNA K 780.79 Malaise And Fatigue 01/06/2012 MADL PLATFORM CONSULTANT, ETELVINA L 491.9 Bronchitis, Chronic Unspec 01/06/2012 MADL PLATFORM CONSULTANT, ETELVINA L 780.79 Malaise And Fatigue 01/06/2012 MADL PLATFORM CONSULTANT, ETELVINA L 491.9 Bronchitis, Chronic Unspec 01/06/2012 MADL PLATFORM CONSULTANT, ETELVINA L 780.79 Malaise And Fatigue 01/06/2012 MADL PLATFORM CONSULTANT, ETELVINA L 491.9 Bronchitis, Chronic Unspec 01/06/2012 MADL PLATFORM CONSULTANT, ETELVINA L 780.79 Malaise And Fatigue 01/06/2012 MADL PLATFORM CONSULTANT, ETELVINA L 491.9 Bronchitis, Chronic Unspec 01/06/2012 MADL PLATFORM CONSULTANT, ETELVINA L 780.79 Malaise And Fatigue 01/06/2012 MADL PLATFORM CONSULTANT, ETELVINA L 491.9 Bronchitis, Chronic Unspec 01/06/2012 MADL PLATFORM CONSULTANT, ETELVINA L 780.79 Malaise And Fatigue 01/06/2012 MADL PLATFORM CONSULTANT, ETELVINA L 491.9 Bronchitis, Chronic Unspec 01/06/2012 MADL PLATFORM CONSULTANT, ETELVINA L 780.79 Malaise And Fatigue 01/06/2012 MADL PLATFORM CONSULTANT, ETELVINA L 491.9 Bronchitis, Chronic Unspec 01/06/2012 MADL PLATFORM CONSULTANT, ETELVINA L 780.79 Malaise And Fatigue 01/06/2012 SALGUERO DO, LADONNA K 491.9 Bronchitis, Chronic Unspec 01/06/2012 SALGUERO DO, LADONNA K 780.79 Malaise And Fatigue 01/06/2012 SALGUERO DO, LADONNA K 491.9 Bronchitis, Chronic Unspec 01/06/2012 SALGUERO DO, LADONNA K 780.79 Malaise And Fatigue 01/06/2012 MADL PLATFORM CONSULTANTETELVINA Bowser L 491.9 Bronchitis, Chronic Unspec 01/06/2012 MADL PLATFORM CONSULTANT ETELVINA L 780.79 Malaise And Fatigue 01/06/2012 SALGUERO DO, LADONNA K 491.9 Bronchitis, Chronic Unspec 01/06/2012 SALUGERO DO, LADONNA K 780.79 Malaise And Fatigue 01/06/2012 MADL PLATFORM CONSULTANT, ETELVINA L 491.9 Bronchitis, Chronic Unspec 01/06/2012 HUGOL PLATFORM CONSULTANT ETELVINA L 780.79 Malaise And Fatigue 01/30/2012 [...] NOS 01/30/2012 Ot 414.01 CORONARY ATHEROSCLEROSIS OF [place] CORON 01/30/2012 Ot 424.1 AORTIC VALVE DISORDER [...] DISORDER 02/02/2012 Ot 414.01 CORONARY ATHEROSCLEROSIS OF [place] CORON 02/02/2012 Ot 458.9 HYPOTENSION NOS 02/02/2012 [...] Angioneurotic Edema Not Elsewhere Classified 02/04/2012 MADL PLATFORM CONSULTANT, ETELVINA L 728.88 Rhabdomyolysis 02/04/2012 MADL PLATFORM CONSULTANT, ETELVINA L 995.1 Angioneurotic Edema Not Elsewhere Classified 02/04/2012 MADL PLATFORM CONSULTANT, ETELVINA L 728.88 Rhabdomyolysis 02/04/2012 MADL PLATFORM CONSULTANT, ETELVINA L 995.1 Angioneurotic Edema Not Elsewhere Classified 02/04/2012 MADL PLATFORM CONSULTANT, ETELVINA L 728.88 Rhabdomyolysis 02/04/2012 MADL PLATFORM CONSULTANT, ETELVINA L 995.1 Angioneurotic Edema Not Elsewhere Classified 02/04/2012 SALGUERO DO, LADONNA K 728.88 Rhabdomyolysis 02/04/2012 SALGUERO DO, LADONNA K 995.1 Angioneurotic Edema Not Elsewhere Classified 02/04/2012 SALGUERO DO, LADONNA K 728.88 Rhabdomyolysis 02/04/2012 SALGUERO DO, LADONNA K 995.1 Angioneurotic Edema Not Elsewhere Classified 02/04/2012 MAD[employer] PLATFORM CONSULTANT, ETELVINA L 728.88 Rhabdomyolysis 02/04/2012 MADL PLATFORM CONSULTANT, ETELVINA L 995.1 Angioneurotic Edema Not Elsewhere Classified 02/04/2012 MADL PLATFORM CONSULTANT, ETELVINA L 728.88 Rhabdomyolysis 02/04/2012 MADL PLATFORM CONSULTANT, ETELVINA L 995.1 Angioneurotic Edema Not Elsewhere Classified 02/04/2012 MADL PLATFORM CONSULTANT, ETELVINA L 728.88 Rhabdomyolysis 02/04/2012 MADL PLATFORM CONSULTANT, ETELVINA L 995.1 Angioneurotic Edema Not Elsewhere Classified 02/04/2012 MADL PLATFORM CONSULTANT, ETELVINA L 728.88 Rhabdomyolysis 02/04/2012 MADL PLATFORM CONSULTANT, ETELVINA L 995.1 Angioneurotic Edema Not Elsewhere Classified 02/04/2012 MADL PLATFORM CONSULTANT, ETELVINA L 728.88 Rhabdomyolysis 02/04/2012 MADL PLATFORM CONSULTANT, ETELVINA L 995.1 Angioneurotic Edema Not Elsewhere Classified 02/04/2012 MADL PLATFORM CONSULTANT, ETELVINA L 728.88 Rhabdomyolysis 02/04/2012 MADL PLATFORM CONSULTANT, ETELVINA L 995.1 Angioneurotic Edema Not Elsewhere Classified 02/04/2012 MADL PLATFORM CONSULTANT, ETELVINA L 728.88 Rhabdomyolysis 02/04/2012 MADL PLATFORM CONSULTANT, ETELVINA L 995.1 Angioneurotic Edema Not Elsewhere Classified 02/04/2012 SALGUERO DO, LADONNA K 728.88 Rhabdomyolysis 02/04/2012 SALGUERO DO, LADONNA K 995.1 Angioneurotic Edema Not Elsewhere Classified 02/04/2012 SALGUERO DO, LADONNA K 728.88 Rhabdomyolysis 02/04/2012 SALGUERO DO, LADONNA K 995.1 Angioneurotic Edema Not Elsewhere Classified 02/04/2012 MADL PLATFORM CONSULTANT, ETELVINA L 728.88 Rhabdomyolysis 02/04/2012 MADL PLATFORM CONSULTANT, ETELVINA L 995.1 Angioneurotic Edema Not Elsewhere Classified 02/04/2012 SALGUERO DO, LADONNA K 728.88 Rhabdomyolysis 02/04/2012 SALGUERO DO, LADONNA K 995.1 Angioneurotic Edema Not Elsewhere Classified 02/04/2012 MADL PLATFORM CONSULTANT, ETELVINA L 728.88 Rhabdomyolysis 02/04/2012 MADL PLATFORM CONSULTANT, ETELVINA L 995.1 Angioneurotic Edema Not Elsewhere [...] DO, LADONNA K 782.3 EDEMA 02/06/2012 MADL PLATFORM CONSULTANT, ETELVINA L 782.3 EDEMA 02/06/2012 MADL PLATFORM CONSULTANT, ETELVINA L 782.3 EDEMA 02/06/2012 MADL PLATFORM CONSULTANT, ETELVINA L 782.3 EDEMA 02/06/2012 SALGUERO DO, LADONNA K 782.3 EDEMA 02/06/2012 SALGUERO DO, LADONNA K 782.3 EDEMA 02/06/2012 MADL PLATFORM CONSULTANT, ETELVINA L 782.3 EDEMA 02/06/2012 MADL PLATFORM CONSULTANT, ETELVINA L 782.3 EDEMA 02/06/2012 MADL PLATFORM CONSULTANT, ETELVINA L 782.3 EDEMA 02/06/2012 MADL PLATFORM CONSULTANT, ETELVINA L 782.3 EDEMA 02/06/2012 MADL PLATFORM CONSULTANT, ETELVINA L 782.3 EDEMA 02/06/2012 MADL PLATFORM CONSULTANT, ETELVINA L 782.3 EDEMA 02/06/2012 MADL PLATFORM CONSULTANT, ETELVINA L 782.3 EDEMA 02/06/2012 SALGUERO DO, LADONNA K 782.3 EDEMA 02/06/2012 SALGUERO DO, LADONNA K 782.3 EDEMA 02/06/2012 MADL PLATFORM CONSULTANT, ETELVINA L 782.3 EDEMA 02/06/2012 SALGUERO DO, LADONNA K 782.3 EDEMA 02/06/2012 MADL PLATFORM CONSULTANT, ETELVINA L 782.3 EDEMA 02/11/2012 MORGAN PLATFORM CONSULTANT, LAURIE S 079.99 VIRAL SYNDROME 02/11/2012 079.99 Viral Syndrome 02/11/2012 MORGAN PLATFORM CONSULTANT, LAURIE S 079.99 Viral Syndrome 02/11/2012 MORGAN PLATFORM CONSULTANT, LAURIE S 079.99 Viral Syndrome 02/11/2012 ROMELIA FISCHER MD 079.99 Viral Syndrome 02/11/2012 BYRON BOSS MD 079.99 Viral Syndrome 02/11/2012 079.99 Viral Syndrome 02/11/2012 079.99 Viral Syndrome 02/11/2012 079.99 Viral Syndrome 02/11/2012 079.99 Viral Syndrome 02/11/2012 BYRON OBSS MD 079.99 Viral Syndrome 02/11/2012 BYRON BOSS [...] DOA K 079.99 Viral Syndrome 02/11/2012 MADL PLATFORM CONSULTANT, ETELVINA L 079.99 Viral Syndrome 02/11/2012 MADL PLATFORM CONSULTANT, ETELVINA L 079.99 Viral Syndrome 02/11/2012 MADL PLATFORM CONSULTANT, ETELVINA L 079.99 Viral Syndrome 02/11/2012 NOEMY PRAKASH LADONNA K 079.99 Viral Syndrome 02/11/2012 SALGUERO DO LADONNA K 079.99 Viral Syndrome 02/11/2012 MADL PLATFORM CONSULTANT, ETELVINA L 079.99 Viral Syndrome 02/11/2012 MADL PLATFORM CONSULTANT, ETELVINA L 079.99 Viral Syndrome 02/11/2012 MADL PLATFORM CONSULTANT, ETELVINA L 079.99 Viral Syndrome 02/11/2012 MADL PLATFORM CONSULTANT, ETELVINA L 079.99 Viral Syndrome 02/11/2012 MADL PLATFORM CONSULTANT, ETELVINA L 079.99 Viral Syndrome 02/11/2012 MADL PLATFORM CONSULTANT, ETELVINA L 079.99 Viral Syndrome 02/11/2012 MADL PLATFORM CONSULTANT, ETELVINA L 079.99 Viral Syndrome 02/11/2012 SALGUERO DO, LADONNA K 079.99 Viral Syndrome 02/11/2012 SALGUERO DO, LADONNA K 079.99 Viral Syndrome 02/11/2012 MADL PLATFORM CONSULTANT, ETELVINA L 079.99 Viral Syndrome 02/11/2012 SALGUERO DO, LADONNA K 079.99 Viral Syndrome 02/11/2012 MADL PLATFORM CONSULTANT, ETELVINA L 079.99 Viral Syndrome 02/17/2012 SUSHANT MORA APRNA S 783.21 WEIGHT LOSS 02/17/2012 783.21 Weight Loss 02/17/2012 SUSHANT MOAR APRNA S 783.21 Weight Loss 02/17/2012 SUSHANT [...] LADONNA K 783.21 Weight Loss 02/17/2012 MADL PLATFORM CONSULTANT, ETELVINA L 783.21 Weight Loss 02/17/2012 MADL PLATFORM CONSULTANT, ETELVINA L 783.21 Weight Loss 02/17/2012 MADL PLATFORM CONSULTANT, ETELVINA L 783.21 Weight Loss 02/17/2012 SALGUERO DO, LADONNA K 783.21 Weight Loss 02/17/2012 SALGUERO DO, LADONNA K 783.21 Weight Loss 02/17/2012 MADL PLATFORM CONSULTANT, ETELVINA L 783.21 Weight Loss 02/17/2012 MADL PLATFORM CONSULTANT, ETELVINA L 783.21 Weight Loss 02/17/2012 MADL PLATFORM CONSULTANT, ETELVINA L 783.21 Weight Loss 02/17/2012 MADL PLATFORM CONSULTANT, ETELVINA L 783.21 Weight Loss 02/17/2012 MADL PLATFORM CONSULTANT, ETELVINA L 783.21 Weight Loss 02/17/2012 MADL PLATFORM CONSULTANT, ETELVINA L 783.21 Weight Loss 02/17/2012 MADL PLATFORM CONSULTANT, ETELVINA L 783.21 Weight Loss 02/17/2012 SALGUERO DO, LADONNA K 783.21 Weight Loss 02/17/2012 SALGUERO DO, LADONNA K 783.21 Weight Loss 02/17/2012 MADL PLATFORM CONSULTANT, ETELVINA L 783.21 Weight Loss 02/17/2012 SALGUERO DO, LADONNA K 783.21 Weight Loss 02/17/2012 MADL PLATFORM CONSULTANT, ETELVINA L 783.21 Weight Loss 02/24/2012 MORGAN [...] DO, LADONNA K 787.91 Diarrhea 02/24/2012 MADL PLATFORM CONSULTANT, ETELVINA L 787.91 Diarrhea 02/24/2012 MADL PLATFORM CONSULTANT, ETELVINA L 787.91 Diarrhea 02/24/2012 MADL PLATFORM CONSULTANT, ETELVINA L 787.91 Diarrhea 02/24/2012 SALGUERO DO, LADONNA K 787.91 Diarrhea 02/24/2012 SALGUERO DO, LADONNA K 787.91 Diarrhea 02/24/2012 MADL PLATFORM CONSULTANT, ETELVINA L 787.91 Diarrhea 02/24/2012 MADL PLATFORM CONSULTANT, ETELVINA L 787.91 Diarrhea 02/24/2012 MADL PLATFORM CONSULTANT, ETELVINA L 787.91 Diarrhea 02/24/2012 MADL PLATFORM CONSULTANT, ETELVINA L 787.91 Diarrhea 02/24/2012 MADL PLATFORM CONSULTANT, ETELVINA L 787.91 Diarrhea 02/24/2012 MADL PLATFORM CONSULTANT, ETELVINA L 787.91 Diarrhea 02/24/2012 MADL PLATFORM CONSULTANT, ETELVINA L 787.91 Diarrhea 02/24/2012 SALGUERO DO, LADONNA K 787.91 Diarrhea 02/24/2012 SALGUERO DO, LADONNA K 787.91 Diarrhea 02/24/2012 MADL PLATFORM CONSULTANT, ETELVINA L 787.91 Diarrhea 02/24/2012 SALGUERO DO, LADONNA K 787.91 Diarrhea 02/24/2012 MADL PLATFORM CONSULTANT, ETELVINA L 787.91 Diarrhea 04/07/2012 MORGAN PLATFORM CONSULTANTLAURIE S 787.20 DYSPHAGIA, UNSPECIFIED 04/07/2012 787.20 Dysphagia, Unspecified 04/07/2012 MORGAN PLATFORM CONSULTANTLAURIE S 787.20 Dysphagia, Unspecified 04/07/2012 MORGAN PLATFORM CONSULTANTLAURIE S 787.20 Dysphagia, Unspecified 04/07/2012 AMADO OLVERA, [...] LADONNA K 787.20 Dysphagia, Unspecified 04/07/2012 MADL PLATFORM CONSULTANT, ETELVINA L 787.20 Dysphagia, Unspecified 04/07/2012 MADL PLATFORM CONSULTANT, ETELVINA L 787.20 Dysphagia, Unspecified 04/07/2012 MADL PLATFORM CONSULTANT, ETELVINA L 787.20 Dysphagia, Unspecified 04/07/2012 SALGUERO DO, LADONNA K 787.20 Dysphagia, Unspecified 04/07/2012 SALGUERO DO, LADONNA K 787.20 Dysphagia, Unspecified 04/07/2012 MADL PLATFORM CONSULTANT, ETELVINA L 787.20 Dysphagia, Unspecified 04/07/2012 MADL PLATFORM CONSULTANT, ETELVINA L 787.20 Dysphagia, Unspecified 04/07/2012 MADL PLATFORM CONSULTANT, ETELVINA L 787.20 Dysphagia, Unspecified 04/07/2012 MADL PLATFORM CONSULTANT, ETELVINA L 787.20 Dysphagia, Unspecified 04/07/2012 MADL PLATFORM CONSULTANT, ETELVINA L 787.20 Dysphagia, Unspecified 04/07/2012 MADL PLATFORM CONSULTANT, ETELVINA L 787.20 Dysphagia, Unspecified 04/07/2012 MADL PLATFORM CONSULTANT, ETELVINA L 787.20 Dysphagia, Unspecified 04/07/2012 SALGUERO DO, LADONNA K 787.20 Dysphagia, Unspecified 04/07/2012 SALGUERO DO, LADONNA K 787.20 Dysphagia, Unspecified 04/07/2012 MADL PLATFORM CONSULTANT, ETELVINA L 787.20 Dysphagia, Unspecified 04/07/2012 SALGUERO DO, LADONNA K 787.20 Dysphagia, Unspecified 04/07/2012 MADL PLATFORM CONSULTANT, ETELVINA L 787.20 Dysphagia, Unspecified 04/16/2012 Ot [...] Cervical Cancer Screening (pap Smear) 09/07/2012 [employer]AD[employer]ine PLATFORM CONSULTANT, ETELVINA L V03.82 Ppv23 (pneumovax) Dx 09/07/2012 MADMaxine PLATFORM CONSULTANT, ETELVINA L V76.10 Breast Cancer Screening 09/07/2012 MADL PLATFORM CONSULTANT, ETELVINA L V76.12 Mammogram Screening 09/07/2012 MADMaxine PLATFORM CONSULTANT, ETELVINA L V76.2 Cervical Cancer Screening (pap Smear) 09/07/2012 MADMaxine PLATFORM CONSULTANT, ETELVINA L V03.82 Ppv23 (pneumovax) Dx 09/07/2012 MADMaxine PLATFORM CONSULTANT, ETELVINA L V76.10 Breast Cancer Screening 09/07/2012 MADL PLATFORM CONSULTANT, ETELVINA L V76.12 Mammogram Screening 09/07/2012 MADL PLATFORM CONSULTANT, ETELVINA L V76.2 Cervical Cancer Screening (pap Smear) 09/07/2012 MADL PLATFORM CONSULTANT, ETELVINA L V03.82 Ppv23 (pneumovax) Dx 09/07/2012 MADL PLATFORM CONSULTANT, ETELVINA L V76.10 Breast Cancer Screening 09/07/2012 MADL PLATFORM CONSULTANT, ETELVINA L V76.12 Mammogram Screening 09/07/2012 MADL PLATFORM CONSULTANT, ETELVINA L V76.2 Cervical Cancer Screening (pap [...] Cervical Cancer Screening (pap Smear) 09/07/2012 MADL PLATFORM CONSULTANT, ETELVINA L V03.82 Ppv23 (pneumovax) Dx 09/07/2012 MADL PLATFORM CONSULTANT, ETELVINA L V76.10 Breast Cancer Screening 09/07/2012 MADL PLATFORM CONSULTANT, ETELVINA L V76.12 Mammogram Screening 09/07/2012 MADL PLATFORM CONSULTANT, ETELVINA L V76.2 Cervical Cancer Screening (pap Smear) 09/07/2012 MADL PLATFORM CONSULTANT, ETELVINA L V03.82 Ppv23 (pneumovax) Dx 09/07/2012 MADL PLATFORM CONSULTANT, ETELVINA L V76.10 Breast Cancer Screening 09/07/2012 MADL PLATFORM CONSULTANT, ETELVINA L V76.12 Mammogram Screening 09/07/2012 MADL PLATFORM CONSULTANT, ETELVINA L V76.2 Cervical Cancer Screening (pap Smear) 09/07/2012 MADL PLATFORM CONSULTANT, ETELVINA L V03.82 Ppv23 (pneumovax) Dx 09/07/2012 MAD PLATFORM CONSULTANT, ETELVINA L V76.10 Breast Cancer Screening 09/07/2012 MAD PLATFORM CONSULTANT, ETELVINA L V76.12 Mammogram Screening 09/07/2012 MAD PLATFORM CONSULTANT, ETELVINA L V76.2 Cervical Cancer Screening (pap Smear) 09/07/2012 MAD PLATFORM CONSULTANT, ETELVINA L V03.82 Ppv23 (pneumovax) Dx 09/07/2012 MAD PLATFORM CONSULTANT, ETELVINA L V76.10 Breast Cancer Screening 09/07/2012 [facility] PLATFORM CONSULTANT, ETELVINA L V76.12 Mammogram Screening 09/07/2012 [facility] PLATFORM CONSULTANT, ETELVINA L V76.2 Cervical Cancer Screening (pap Smear) 09/07/2012 MAD PLATFORM CONSULTANT, ETELVINA L V03.82 Ppv23 (pneumovax) Dx 09/07/2012 [facility] PLATFORM CONSULTANT, ETELVINA L V76.10 Breast Cancer Screening 09/07/2012 [facility] PLATFORM CONSULTANT, TEELVINA L V76.12 Mammogram Screening 09/07/2012 [facility] PLATFORM CONSULTANT, ETELVINA L V76.2 Cervical Cancer Screening (pap Smear) 09/07/2012 MAD PLATFORM CONSULTANT, ETELVINA L V03.82 Ppv23 (pneumovax) Dx 09/07/2012 MAD PLATFORM CONSULTANT, ETELVINA L V76.10 Breast Cancer Screening 09/07/2012 [facility] PLATFORM CONSULTANT, ETELVINA L V76.12 Mammogram Screening 09/07/2012 [facility] PLATFORM CONSULTANT, ETELVINA L V76.2 Cervical Cancer Screening (pap Smear) 09/07/2012 MAD PLATFORM CONSULTANT, ETELVINA L V03.82 Ppv23 (pneumovax) Dx 09/07/2012 MAD PLATFORM CONSULTANT, ETELVINA L V76.10 Breast Cancer Screening 09/07/2012 MAD PLATFORM CONSULTANT, ETELVINA L V76.12 Mammogram Screening 09/07/2012 MAD PLATFORM CONSULTANT, ETELVINA L V76.2 Cervical Cancer Screening (pap [...] Cervical Cancer Screening (pap Smear) 09/07/2012 MADL PLATFORM CONSULTANTHAMMADA L V03.82 Ppv23 (pneumovax) Dx 09/07/2012 MADL PLATFORM CONSULTANT, ETELVINA L V76.10 Breast Cancer Screening 09/07/2012 MADL PLATFORM CONSULTANT, ETELVINA L V76.12 Mammogram Screening 09/07/2012 MADL PLATFORM CONSULTANTHAMMAD BowserA L V76.2 Cervical Cancer Screening (pap Smear) 09/07/2012 NOEMY PRAKASH LADONNA K V03.82 Ppv23 (pneumovax) Dx 09/07/2012 TERE SALGUERO DOA K V76.10 Breast Cancer Screening 09/07/2012 TERE SALGUERO DOA K V76.12 Mammogram Screening 09/07/2012 TERE SALGUERO DOA K V76.2 Cervical Cancer Screening (pap Smear) 09/07/2012 MADL PLATFORM CONSULTANT, ETELVINA L V03.82 Ppv23 (pneumovax) Dx 09/07/2012 MADL PLATFORM CONSULTANT, ETELVINA L V76.10 Breast Cancer Screening 09/07/2012 MADL PLATFORM CONSULTANT, ETELVINA L V76.12 Mammogram Screening 09/07/2012 MADL PLATFORM CONSULTANT, ETELVINA L V76.2 Cervical Cancer Screening (pap Smear) 09/08/2012 Ot 305.1 TOBACCO USE DISORDER 09/08/2012 Ot 466.0 ACUTE BRONCHITIS 09/08/2012 Ot 786.2 COUGH 09/19/2012 Ot 305.1 TOBACCO USE DISORDER 09/19/2012 Ot 491.9 CHRONIC BRONCHITIS NOS 09/19/2012 Ot 780.79 OTH MALAISE FATIGUE 10/22/2012 MORGAN PLATFORM CONSULTANT, LAURIE S V58.69 high risk medication 10/22/2012 [...] medication for a long time 10/22/2012 MADL PLATFORM CONSULTANT, ETELVINA L V58.69 taking high-risk medication for a long time 10/22/2012 MADL PLATFORM CONSULTANTHAMMADA L V58.69 taking high-risk medication for a long time 10/22/2012 LADONNA SALGUERO DO K V58.69 taking high-risk medication for a long time 10/22/2012 LADONNA SALGUERO DO K V58.69 taking high-risk medication for a long time 10/22/2012 MADL PLATFORM CONSULTANTETELVINA L V58.69 taking high-risk medication for a long time 10/22/2012 MADL PLATFORM CONSULTANT ETELVINA L V58.69 taking high-risk medication for a long time 10/22/2012 MADL PLATFORM CONSULTANTHAMMADA L V58.69 taking high-risk medication for a long time 10/22/2012 MADL PLATFORM CONSULTANTHAMMADA L V58.69 taking high-risk medication for a long time 10/22/2012 MADL PLATFORM CONSULTANTHAMMAD BowserA L V58.69 taking high-risk medication for a long time 10/22/2012 MADL PLATFORM CONSULTANTHAMMADA L V58.69 taking high-risk medication for a long time 10/22/2012 MADL PLATFORM CONSULTANT ETELVINA L V58.69 taking high-risk medication for a long time 10/22/2012 LADONNA SALGUERO DO K V58.69 taking high-risk medication for a long time 10/22/2012 LADONNA SALGUERO DO K V58.69 taking high-risk medication for a long time 10/22/2012 MADL PLATFORM CONSULTANTETELVINA Bowser L V58.69 taking high-risk medication for a long time 10/22/2012 LADONNA SALGUERO DO K V58.69 taking high-risk medication for a long time 10/22/2012 MADL PLATFORM CONSULTANTHAMMAD BowserA L V58.69 taking high-risk medication for a long time 10/26/2012 Ot 250.00 DIAB MELVA WO COMPL, TYPE II OR UNSPEC TY 10/26/2012 Ot 278.00 OBESITY, NOS 10/26/2012 Ot 300.00 ANXIETY STATE NOS 10/26/2012 Ot 305.1 TOBACCO USE DISORDER 10/26/2012 Ot 311 DEPRESSIVE DISORDER NEC 10/26/2012 Ot 401.9 HYPERTENSION NOS 10/26/2012 Ot 414.01 CORONARY ATHEROSCLEROSIS OF [place] CORON 10/26/2012 Ot 491.21 OBSTR CHRONIC BRONCHITIS, [...] K 465.9 UPPER RESPIRATORY INFECTION 11/01/2012 MADL PLATFORM CONSULTANT, ETELVINA L 465.9 UPPER RESPIRATORY INFECTION 11/01/2012 MADL PLATFORM CONSULTANT, ETELVINA L 465.9 UPPER RESPIRATORY INFECTION 11/01/2012 MADL PLATFORM CONSULTANT, ETELVINA L 465.9 UPPER RESPIRATORY INFECTION 11/01/2012 SALGUERO DO, LADONNA K 465.9 UPPER RESPIRATORY INFECTION 11/01/2012 SALGUERO DO, LADONNA K 465.9 UPPER RESPIRATORY INFECTION 11/01/2012 MADL PLATFORM CONSULTANT, ETELVINA L 465.9 UPPER RESPIRATORY INFECTION 11/01/2012 MADL PLATFORM CONSULTANT, ETELVINA L 465.9 UPPER RESPIRATORY INFECTION 11/01/2012 MADL PLATFORM CONSULTANT, ETELVINA L 465.9 UPPER RESPIRATORY INFECTION 11/01/2012 MADL PLATFORM CONSULTANT, ETELVINA L 465.9 UPPER RESPIRATORY INFECTION 11/01/2012 MADL PLATFORM CONSULTANT, ETELVINA L 465.9 UPPER RESPIRATORY INFECTION 11/01/2012 MADL PLATFORM CONSULTANT, ETELVINA L 465.9 UPPER RESPIRATORY INFECTION 11/01/2012 MADL PLATFORM CONSULTANT, ETELVINA L 465.9 UPPER RESPIRATORY INFECTION 11/01/2012 SALGUERO DO, LADONNA K 465.9 UPPER RESPIRATORY INFECTION 11/01/2012 SALGUERO DO, LADONNA K 465.9 UPPER RESPIRATORY INFECTION 11/01/2012 MADL PLATFORM CONSULTANT, ETELVINA L 465.9 UPPER RESPIRATORY INFECTION 11/01/2012 SALGUERO DO, LADONNA K 465.9 UPPER RESPIRATORY INFECTION 11/01/2012 MADL PLATFORM CONSULTANT, ETELVINA L 465.9 UPPER RESPIRATORY INFECTION 11/13/2012 Ot 250.00 DIAB MELVA WO COMPL, TYPE II OR UNSPEC TY 11/13/2012 Ot 272.4 HYPERLIPIDEMIA NEC/NOS 11/13/2012 Ot 278.00 OBESITY, NOS 11/13/2012 Ot 300.00 ANXIETY STATE NOS 11/13/2012 Ot 305.1 TOBACCO USE DISORDER 11/13/2012 Ot 311 DEPRESSIVE DISORDER NEC 11/13/2012 Ot 401.9 HYPERTENSION NOS 11/13/2012 Ot 414.01 CORONARY ATHEROSCLEROSIS OF [place] CORON 11/13/2012 Ot 458.9 HYPOTENSION NOS 11/13/2012 [...] DO, LADONNA K 244.9 HYPOTHYROIDISM 12/02/2012 MADL PLATFORM CONSULTANT, ETELVINA L 244.9 HYPOTHYROIDISM 12/02/2012 MADL PLATFORM CONSULTANT, ETELVINA L 244.9 HYPOTHYROIDISM 12/02/2012 MADL PLATFORM CONSULTANT, ETELVINA L 244.9 HYPOTHYROIDISM 12/02/2012 SALGUERO DO, LADONNA K 244.9 HYPOTHYROIDISM 12/02/2012 SALGUERO DO, LADONNA K 244.9 HYPOTHYROIDISM 12/02/2012 MADL PLATFORM CONSULTANT, ETELVINA L 244.9 HYPOTHYROIDISM 12/02/2012 MADL PLATFORM CONSULTANT, ETELVINA L 244.9 HYPOTHYROIDISM 12/02/2012 MADL PLATFORM CONSULTANT, ETELVINA L 244.9 HYPOTHYROIDISM 12/02/2012 MADL PLATFORM CONSULTANT, ETELVINA L 244.9 HYPOTHYROIDISM 12/02/2012 MADL PLATFORM CONSULTANT, ETELVINA L 244.9 HYPOTHYROIDISM 12/02/2012 MADL PLATFORM CONSULTANT, ETELVINA L 244.9 HYPOTHYROIDISM 12/02/2012 MADL PLATFORM CONSULTANT, ETELVINA L 244.9 HYPOTHYROIDISM 12/02/2012 SALGUERO DO, LADONNA K 244.9 HYPOTHYROIDISM 12/02/2012 SALGUERO DO, LADONNA K 244.9 HYPOTHYROIDISM 12/02/2012 MADL PLATFORM CONSULTANT, ETELVINA L 244.9 HYPOTHYROIDISM 12/02/2012 SALGUERO DO, LADONNA K 244.9 HYPOTHYROIDISM 12/02/2012 MADL PLATFORM CONSULTANT, ETELVINA L 244.9 HYPOTHYROIDISM 12/26/2012 Ot 305.1 [...] DO LADONNA K 780.52 insomnia 02/08/2013 MADL PLATFORM CONSULTANT, ETELVINA L 780.52 insomnia 02/08/2013 MADL PLATFORM CONSULTANT, ETELVINA L 780.52 insomnia 02/08/2013 MADL PLATFORM CONSULTANT, ETELVINA L 780.52 insomnia 02/08/2013 SALGUERO DO LADONNA K 780.52 insomnia 02/08/2013 SALGUERO DO, LADONNA K 780.52 insomnia 02/08/2013 MADL PLATFORM CONSULTANT, ETELVINA L 780.52 insomnia 02/08/2013 MADL PLATFORM CONSULTANT, ETELVINA L 780.52 insomnia 02/08/2013 MADL PLATFORM CONSULTANT, ETELVINA L 780.52 insomnia 02/08/2013 MADL PLATFORM CONSULTANT, ETELVINA L 780.52 insomnia 02/08/2013 MADL PLATFORM CONSULTANT, ETELVINA L 780.52 insomnia 02/08/2013 MADL PLATFORM CONSULTANT, ETELVINA L 780.52 insomnia 02/08/2013 MADL PLATFORM CONSULTANT, ETELVINA L 780.52 insomnia 02/08/2013 SALGUERO DO LADONNA K 780.52 insomnia 02/08/2013 SALGUERO DO LADONNA K 780.52 insomnia 02/08/2013 MADL PLATFORM CONSULTANT, ETELVINA L 780.52 insomnia 02/08/2013 SALGUERO DO, LADONNA K 780.52 insomnia 02/08/2013 MADL PLATFORM CONSULTANT, ETELVINA L 780.52 insomnia 04/17/2013 REHAN OLVERA, [...] LADONNA K 719.07 EDEMA FOOT 06/03/2013 MADL PLATFORM CONSULTANT, ETELVINA L 110.1 ONYCHOMYCOSIS 06/03/2013 MADL PLATFORM CONSULTANT, ETELVINA L 719.07 EDEMA FOOT 06/03/2013 MADL PLATFORM CONSULTANT, ETELVINA L 110.1 ONYCHOMYCOSIS 06/03/2013 MADL PLATFORM CONSULTANT, ETELVINA L 719.07 EDEMA FOOT 06/03/2013 MADL PLATFORM CONSULTANT, ETELVINA L 110.1 ONYCHOMYCOSIS 06/03/2013 MADL PLATFORM CONSULTANT, ETELVINA L 719.07 EDEMA FOOT 06/03/2013 SALGUERO DO, LADONNA K 110.1 ONYCHOMYCOSIS 06/03/2013 SALGUERO DO, LADONNA K 719.07 EDEMA FOOT 06/03/2013 SALGUERO DO, LADONNA K 110.1 ONYCHOMYCOSIS 06/03/2013 SALGUERO DO, LADONNA K 719.07 EDEMA FOOT 06/03/2013 MADL PLATFORM CONSULTANT, ETELVINA L 110.1 ONYCHOMYCOSIS 06/03/2013 MADL PLATFORM CONSULTANT, ETELVINA L 719.07 EDEMA FOOT 06/03/2013 MADL PLATFORM CONSULTANT, ETELVINA L 110.1 ONYCHOMYCOSIS 06/03/2013 MADL PLATFORM CONSULTANT, ETELVINA L 719.07 EDEMA FOOT 06/03/2013 MADL PLATFORM CONSULTANT, ETELVINA L 110.1 ONYCHOMYCOSIS 06/03/2013 MADL PLATFORM CONSULTANT, ETELVINA L 719.07 EDEMA FOOT 06/03/2013 MADL PLATFORM CONSULTANT, ETELVINA L 110.1 ONYCHOMYCOSIS 06/03/2013 MADL PLATFORM CONSULTANT, ETELVINA L 719.07 EDEMA FOOT 06/03/2013 MADL PLATFORM CONSULTANT, ETELVINA L 110.1 ONYCHOMYCOSIS 06/03/2013 MADL PLATFORM CONSULTANT, ETELVINA L 719.07 EDEMA FOOT 06/03/2013 MADL PLATFORM CONSULTANT, ETELVINA L 110.1 ONYCHOMYCOSIS 06/03/2013 MADL PLATFORM CONSULTANT, ETELVINA L 719.07 EDEMA FOOT 06/03/2013 MADL PLATFORM CONSULTANT, ETELVINA L 110.1 ONYCHOMYCOSIS 06/03/2013 MADL PLATFORM CONSULTANT, ETELVINA L 719.07 EDEMA FOOT 06/03/2013 SALGUERO DO, LADONNA K 110.1 ONYCHOMYCOSIS 06/03/2013 SALGUERO DO, LADONNA K 719.07 EDEMA FOOT 06/03/2013 SALGUERO DO, LADONNA K 110.1 ONYCHOMYCOSIS 06/03/2013 SALGUERO DO, LADONNA K 719.07 EDEMA FOOT 06/03/2013 MADL PLATFORM CONSULTANT, ETELVINA L 110.1 ONYCHOMYCOSIS 06/03/2013 MADL PLATFORM CONSULTANT, ETELVINA L 719.07 EDEMA FOOT 06/03/2013 SALGUERO DO, LADONNA K 110.1 ONYCHOMYCOSIS 06/03/2013 SALGUERO DO, LADONNA K 719.07 EDEMA FOOT 06/03/2013 MADL PLATFORM CONSULTANT, ETELVINA L 110.1 ONYCHOMYCOSIS 06/03/2013 MADL PLATFORM CONSULTANT, ETELVINA L 719.07 EDEMA FOOT 08/03/2013 EDUARDO [...] LADONNA K 595.0 ACUTE CYSTITIS 08/25/2013 MADL PLATFORM CONSULTANT, ETELVINA L 311 depression 08/25/2013 MADL PLATFORM CONSULTANT, ETELVINA L 595.0 ACUTE CYSTITIS 08/25/2013 MADL PLATFORM CONSULTANT, ETELVINA L 311 depression 08/25/2013 MADL PLATFORM CONSULTANT, ETELVINA L 595.0 ACUTE CYSTITIS 08/25/2013 MADL PLATFORM CONSULTANT, ETELVINA L 311 depression 08/25/2013 MADL PLATFORM CONSULTANT, ETELVINA L 595.0 ACUTE CYSTITIS 08/25/2013 SALGUERO DO, LADONNA K 311 depression 08/25/2013 SALGUERO DO, LADONNA K 595.0 ACUTE CYSTITIS 08/25/2013 SALGUERO DO, LADONNA K 311 depression 08/25/2013 SALGUERO DO, LADONNA K 595.0 ACUTE CYSTITIS 08/25/2013 MADL PLATFORM CONSULTANT, ETELVINA L 311 depression 08/25/2013 MADL PLATFORM CONSULTANT, ETELVINA L 595.0 ACUTE CYSTITIS 08/25/2013 MADL PLATFORM CONSULTANT, ETELVINA L 311 depression 08/25/2013 MADL PLATFORM CONSULTANT, ETELVINA L 595.0 ACUTE CYSTITIS 08/25/2013 MADL PLATFORM CONSULTANT, ETELVINA L 311 depression 08/25/2013 MADL PLATFORM CONSULTANT, ETELVINA L 595.0 ACUTE CYSTITIS 08/25/2013 MADL PLATFORM CONSULTANT, ETELVINA L 311 depression 08/25/2013 MADL PLATFORM CONSULTANT, ETELVINA L 595.0 ACUTE CYSTITIS 08/25/2013 MADL PLATFORM CONSULTANT, ETELVINA L 311 depression 08/25/2013 MADL PLATFORM CONSULTANT, ETELVINA L 595.0 ACUTE CYSTITIS 08/25/2013 MADL PLATFORM CONSULTANT, ETELVINA L 311 depression 08/25/2013 MADL PLATFORM CONSULTANT, ETELVINA L 595.0 ACUTE CYSTITIS 08/25/2013 MADL PLATFORM CONSULTANT, ETELVINA L 311 depression 08/25/2013 MADL PLATFORM CONSULTANT, ETELVINA L 595.0 ACUTE CYSTITIS 08/25/2013 SALGUERO DO, LADONNA K 311 depression 08/25/2013 SALGUERO DO, LADONNA K 595.0 ACUTE CYSTITIS 08/25/2013 SALGUERO DO, LADONNA K 311 depression 08/25/2013 SALGUERO DO, LADONNA K 595.0 ACUTE CYSTITIS 08/25/2013 MADL PLATFORM CONSULTANT, ETELVINA L 311 depression 08/25/2013 MADL PLATFORM CONSULTANT, ETELVINA L 595.0 ACUTE CYSTITIS 08/25/2013 SALGUERO DO, LADONNA K 311 depression 08/25/2013 SALGUERO DO, LADONNA K 595.0 ACUTE CYSTITIS 08/25/2013 MADL PLATFORM CONSULTANT, ETELVINA L 311 depression 08/25/2013 MADL PLATFORM CONSULTANT, ETELVINA L 595.0 ACUTE CYSTITIS 09/02/2013 SALGUERO DO LADONNA K 709.8 FISSURES SKIN 09/02/2013 BYRON BOSS MD 709.8 FISSURES SKIN 09/02/2013 SALGUERO DO LADONNA K 709.8 FISSURES SKIN 09/02/2013 BYRON BOSS MD 709.8 FISSURES SKIN 09/02/2013 BYRON BOSS MD 709.8 FISSURES SKIN 09/02/2013 SALGUERO DO, LADONNA K 709.8 FISSURES SKIN 09/02/2013 SALGUERO DO, LADONAN K 709.8 FISSURES SKIN 09/02/2013 SALGUERO DO, LADONNA K 709.8 FISSURES SKIN 09/02/2013 SALGUERO DO, LADONNA K 709.8 FISSURES SKIN 09/02/2013 MADL PLATFORM CONSULTANT, ETELVINA L 709.8 FISSURES SKIN 09/02/2013 MADL PLATFORM CONSULTANT, ETELVINA L 709.8 FISSURES SKIN 09/02/2013 MADL PLATFORM CONSULTANT, ETELVINA L 709.8 FISSURES SKIN 09/02/2013 SAGLUERO DO, LADONNA K 709.8 FISSURES SKIN 09/02/2013 SALGUERO DO, LADONNA K 709.8 FISSURES SKIN 09/02/2013 MADL PLATFORM CONSULTANT, ETELVINA L 709.8 FISSURES SKIN 09/02/2013 MADL PLATFORM CONSULTANT, ETELVINA L 709.8 FISSURES SKIN 09/02/2013 MADL PLATFORM CONSULTANT, ETELVINA L 709.8 FISSURES SKIN 09/02/2013 MADL PLATFORM CONSULTANT, ETELVINA L 709.8 FISSURES SKIN 09/02/2013 MADL PLATFORM CONSULTANT, ETELVINA L 709.8 FISSURES SKIN 09/02/2013 MADL PLATFORM CONSULTANT, ETELVINA L 709.8 FISSURES SKIN 09/02/2013 MADL PLATFORM CONSULTANT, ETELVINA L 709.8 FISSURES SKIN 09/02/2013 SALGUERO DO, LADONNA K 709.8 FISSURES SKIN 09/02/2013 SALGUERO DO, LADONNA K 709.8 FISSURES SKIN 09/02/2013 MADL PLATFORM CONSULTANT, ETELVINA L 709.8 FISSURES SKIN 09/02/2013 SALGUERO DO, LADONNA K 709.8 FISSURES SKIN 09/02/2013 MADL PLATFORM CONSULTANT, ETELVINA L 709.8 FISSURES SKIN 09/22/2013 BYRON [...] 788.1 pain during urination (dysuria) 09/22/2013 MADL PLATFORM CONSULTANT, ETELVINA L 788.1 pain during urination (dysuria) 09/22/2013 MADL PLATFORM CONSULTANT, ETELVINA L 788.1 pain during urination (dysuria) 09/22/2013 MADL PLATFORM CONSULTANT, ETELVINA L 788.1 pain during urination (dysuria) 09/22/2013 SALGUERO DO, LADONNA K 788.1 PAIN DURING URINATION (DYSURIA) 09/22/2013 SALGUERO DO, LADONNA K 788.1 PAIN DURING URINATION (DYSURIA) 09/22/2013 MADL PLATFORM CONSULTANT, ETELVINA L 788.1 PAIN DURING URINATION (DYSURIA) 09/22/2013 MADL PLATFORM CONSULTANT, ETELVINA L 788.1 PAIN DURING URINATION (DYSURIA) 09/22/2013 MADL PLATFORM CONSULTANT, ETELVINA L 788.1 PAIN DURING URINATION (DYSURIA) 09/22/2013 MADL PLATFORM CONSULTANT, ETELVINA L 788.1 PAIN DURING URINATION (DYSURIA) 09/22/2013 MADL PLATFORM CONSULTANT, ETELVINA L 788.1 PAIN DURING URINATION (DYSURIA) 09/22/2013 MADL PLATFORM CONSULTANT, ETELVINA L 788.1 PAIN DURING URINATION (DYSURIA) 09/22/2013 MADL PLATFORM CONSULTANT, ETELVINA L 788.1 PAIN DURING URINATION (DYSURIA) 09/22/2013 SALGUERO DO LADONNA K 788.1 PAIN DURING URINATION (DYSURIA) 09/22/2013 SALGUERO DO, LADONNA K 788.1 PAIN DURING URINATION (DYSURIA) 09/22/2013 MADL PLATFORM CONSULTANT, ETELVINA L 788.1 PAIN DURING URINATION (DYSURIA) 09/22/2013 SALGUERO DO, LADONNA K 788.1 PAIN DURING URINATION (DYSURIA) 09/22/2013 MADMaxine PLATFORM CONSULTANT, ETELVINA L 788.1 PAIN DURING URINATION (DYSURIA) 10/22/2013 EDUARDO VILLEGAS MD Ot 596.51 HYPERTONICITY OF BLADDER 10/22/2013 EDUARDO VILLEGAS MD Ot 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 10/22/2013 EDUARDO VILLEGAS MD Ot 788.30 UNSPECIFIED URINARY INCONTINENCE 10/22/2013 EDUARDO VILLEGAS MD Ot V58.69 [facility] MED,LT,CURRENT USE 10/25/2013 HARDEEP DORANTES Ot 892.0 OPEN WOUND OF FOOT 10/25/2013 HARDEEP DORANTES Ot 959.7 LOWER LEG INJURY NOS 10/25/2013 HARDEEP DORANTES Ot E000.8 OTHER EXTERNAL CAUSE STATUS 10/25/2013 HARDEEP DORANTES Ot E849.0 ACCIDENT IN HOME 10/25/2013 HARDEEP ODRANTES Ot E916 STRUCK BY FALLING OBJECT 10/25/2013 HARDEEP DORANTES Ot V06.1 [id number], COMBINED [ 11/04/2013 MARLA EVERETT MD, Ot [...] LADONNA K Ot 414.01 CORONARY ATHEROSCLEROSIS OF [place] CORON 02/11/2014 NOEMY PRAKASH LADONNA K Ot [...] MASS INDEX 39.0-39.9, ADULT 02/13/2014 THOMPSON QURESHI PLATFORM CONSULTANT Ot 724.5 BACKACHE NOS 02/27/2014 TERE SALGUERO DOA K 381.01 ACUTE SEROUS OTITIS MEDIA 02/27/2014 NOEMY PRAKASH LADONNA K 381.01 ACUTE SEROUS OTITIS MEDIA 02/27/2014 NOEMY PRAKASH LADONNA K 381.01 ACUTE SEROUS OTITIS MEDIA 02/27/2014 SALGUERO DO LADONNA K 381.01 ACUTE SEROUS OTITIS MEDIA 02/27/2014 ETELVINA LEONARD APRN 381.01 ACUTE SEROUS OTITIS MEDIA 02/27/2014 MADL PLATFORM CONSULTANT, ETELVINA L 381.01 ACUTE SEROUS OTITIS MEDIA 02/27/2014 MADL PLATFORM CONSULTANT, ETELVINA L 381.01 ACUTE SEROUS OTITIS MEDIA 02/27/2014 SALGUERO DO, LADONNA K 381.01 ACUTE SEROUS OTITIS MEDIA 02/27/2014 SALGUERO DO, LADONNA K 381.01 ACUTE SEROUS OTITIS MEDIA 02/27/2014 MADL PLATFORM CONSULTANT, ETELVINA L 381.01 ACUTE SEROUS OTITIS MEDIA 02/27/2014 MADL PLATFORM CONSULTANT, ETELVINA L 381.01 ACUTE SEROUS OTITIS MEDIA 02/27/2014 MADL PLATFORM CONSULTANT, ETELVINA L 381.01 ACUTE SEROUS OTITIS MEDIA 02/27/2014 MADL PLATFORM CONSULTANT, ETELVINA L 381.01 ACUTE SEROUS OTITIS MEDIA 02/27/2014 MADL PLATFORM CONSULTANT, ETELVINA L 381.01 ACUTE SEROUS OTITIS MEDIA 02/27/2014 MADL PLATFORM CONSULTANT, ETELVINA L 381.01 ACUTE SEROUS OTITIS MEDIA 02/27/2014 MADL PLATFORM CONSULTANT, ETELVINA L 381.01 ACUTE SEROUS OTITIS MEDIA 02/27/2014 SALGUERO DO, LADONNA K 381.01 ACUTE SEROUS OTITIS MEDIA 02/27/2014 SALGUERO DO, LADONNA K 381.01 ACUTE SEROUS OTITIS MEDIA 02/27/2014 MADL PLATFORM CONSULTANT, ETELVINA L 381.01 ACUTE SEROUS OTITIS MEDIA 02/27/2014 SALGUERO DO, LADONNA K 381.01 ACUTE SEROUS OTITIS MEDIA 02/27/2014 MADL PLATFORM CONSULTANT, ETELVINA L 381.01 ACUTE SEROUS OTITIS MEDIA 05/22/2014 MADL PLATFORM CONSULTANT, ETELVINA L V16.0 FAMILY HISTORY OF MALIGNANT NEOPLASM OF GASTROINTESTINAL TRACT 05/22/2014 MADL PLATFORM CONSULTANT, ETELVINA L V16.0 FAMILY HISTORY OF MALIGNANT NEOPLASM OF GASTROINTESTINAL TRACT 05/22/2014 SALGUERO DO, LADONNA K V16.0 FAMILY HISTORY OF MALIGNANT NEOPLASM OF GASTROINTESTINAL TRACT 05/22/2014 SALGUERO DO, LADONNA K V16.0 FAMILY HISTORY OF MALIGNANT NEOPLASM OF GASTROINTESTINAL TRACT 05/22/2014 MADL PLATFORM CONSULTANT, ETELVINA L V16.0 FAMILY HISTORY OF MALIGNANT NEOPLASM OF GASTROINTESTINAL TRACT 05/22/2014 MADL PLATFORM CONSULTANT, ETELVINA L V16.0 FAMILY HISTORY OF MALIGNANT NEOPLASM OF GASTROINTESTINAL TRACT 05/22/2014 MADL PLATFORM CONSULTANT, ETELVINA L V16.0 FAMILY HISTORY OF MALIGNANT NEOPLASM OF GASTROINTESTINAL TRACT 05/22/2014 MADL PLATFORM CONSULTANT, ETELVINA L V16.0 FAMILY HISTORY OF MALIGNANT NEOPLASM OF GASTROINTESTINAL TRACT 05/22/2014 MADL PLATFORM CONSULTANT, ETELVINA L V16.0 FAMILY HISTORY OF MALIGNANT NEOPLASM OF GASTROINTESTINAL TRACT 05/22/2014 MADL PLATFORM CONSULTANT, ETELVINA L V16.0 FAMILY HISTORY OF MALIGNANT NEOPLASM OF GASTROINTESTINAL TRACT 05/22/2014 MADL PLATFORM CONSULTANT, ETELVINA L V16.0 FAMILY HISTORY OF MALIGNANT NEOPLASM OF GASTROINTESTINAL TRACT 05/22/2014 SALGUERO DO LADONNA K V16.0 FAMILY HISTORY OF MALIGNANT NEOPLASM OF GASTROINTESTINAL TRACT 05/22/2014 SALUGERO DO LADONNA K V16.0 FAMILY HISTORY OF MALIGNANT NEOPLASM OF GASTROINTESTINAL TRACT 05/22/2014 MADL PLATFORM CONSULTANT, ETELVINA L V16.0 FAMILY HISTORY OF MALIGNANT NEOPLASM OF GASTROINTESTINAL TRACT 05/22/2014 SALGUERO DO LADONNA K V16.0 FAMILY HISTORY OF MALIGNANT NEOPLASM OF GASTROINTESTINAL TRACT 05/22/2014 AISHA PLATFORM CONSULTANT, ETELVINA L V16.0 FAMILY HISTORY OF MALIGNANT [...] FACP CCDS Ot 414.01 CORONARY ATHEROSCLEROSIS OF [place] CORON 05/23/2014 BRADLY KIRBY MD, FACC FACP [...] SALDANA MD Ot 414.01 CORONARY ATHEROSCLEROSIS OF [place] CORON 06/05/2014 SHANA OLVERA, JEFERSON Bruner Ot [...] MD Ot 553.3 DIAPHRAGMATIC HERNIA 08/28/2014 MADL PLATFORM CONSULTANT, ETELVINA L 381.01 ACUTE SEROUS OTITIS MEDIA 08/28/2014 MADL PLATFORM CONSULTANT, ETELVINA L 799.02 HYPOXIA 08/28/2014 MADL PLATFORM CONSULTANT, ETELVINA L V04.81 FLU SHOT 08/28/2014 MADL PLATFORM CONSULTANT, ETELVINA L 381.01 ACUTE SEROUS OTITIS MEDIA 08/28/2014 MADL PLATFORM CONSULTANT, ETELVINA L 799.02 HYPOXIA 08/28/2014 MADL PLATFORM CONSULTANT, ETELVINA L V04.81 FLU SHOT 08/28/2014 MADL PLATFORM CONSULTANT, ETELVINA L 381.01 ACUTE SEROUS OTITIS MEDIA 08/28/2014 MADL PLATFORM CONSULTANT, ETELVINA L 799.02 HYPOXIA 08/28/2014 MADL PLATFORM CONSULTANT, ETELVINA L V04.81 FLU SHOT 08/28/2014 MADL PLATFORM CONSULTANT, ETELVINA L 381.01 ACUTE SEROUS OTITIS MEDIA 08/28/2014 MADL PLATFORM CONSULTANT, ETELVINA L 799.02 HYPOXIA 08/28/2014 MADL PLATFORM CONSULTANT, ETELVINA L V04.81 FLU SHOT 08/28/2014 MADL PLATFORM CONSULTANT, ETELVINA L 381.01 ACUTE SEROUS OTITIS MEDIA 08/28/2014 MADL PLATFORM CONSULTANT, ETELVINA L 799.02 HYPOXIA 08/28/2014 MADL PLATFORM CONSULTANT, ETELVINA L V04.81 FLU SHOT 08/28/2014 MADL PLATFORM CONSULTANT, ETELVINA L 381.01 ACUTE SEROUS OTITIS MEDIA 08/28/2014 MADL PLATFORM CONSULTANT, ETELVINA L 799.02 HYPOXIA 08/28/2014 MADL PLATFORM CONSULTANT, ETELVINA L V04.81 FLU SHOT 08/28/2014 MADL PLATFORM CONSULTANT, ETELVINA L 381.01 ACUTE SEROUS OTITIS MEDIA 08/28/2014 MADL PLATFORM CONSULTANT, ETELVINA L 799.02 HYPOXIA 08/28/2014 MADL PLATFORM CONSULTANT, ETELVINA L V04.81 FLU SHOT 08/28/2014 SALGUERO DO, LADONNA K 381.01 ACUTE SEROUS OTITIS MEDIA 08/28/2014 SALGUERO DO, LADONNA K 799.02 HYPOXIA 08/28/2014 SALGUERO DO, LADONNA K V04.81 FLU SHOT 08/28/2014 SALGUERO DO, LADONNA K 381.01 ACUTE SEROUS OTITIS MEDIA 08/28/2014 SALGUERO DO, LADONNA K 799.02 HYPOXIA 08/28/2014 SALGUERO DO, LADONNA K V04.81 FLU SHOT 08/28/2014 MADL PLATFORM CONSULTANT, ETELVINA L 381.01 ACUTE SEROUS OTITIS MEDIA 08/28/2014 MADL PLATFORM CONSULTANT, ETELVINA L 799.02 HYPOXIA 08/28/2014 MADL PLATFORM CONSULTANT, ETELVINA L V04.81 FLU SHOT 08/28/2014 SALGUERO DO, LADONNA K 381.01 ACUTE SEROUS OTITIS MEDIA 08/28/2014 SALGUERO DO, LADONNA K 799.02 HYPOXIA 08/28/2014 SALGUERO DO, LADONNA K V04.81 FLU SHOT 08/28/2014 MADL PLATFORM CONSULTANT, ETELVINA L 381.01 ACUTE SEROUS OTITIS MEDIA 08/28/2014 MADL PLATFORM CONSULTANT, ETELVINA L 799.02 HYPOXIA 08/28/2014 MADL ETELVINA HARRIS L V04.81 FLU SHOT 08/31/2014 THOMPSON QURESHI PLATFORM CONSULTANT Ot 250.00 DIAB MELVA WO COMPL, TYPE II OR UNSPEC TY 08/31/2014 THOMPSON QURESHI PLATFORM CONSULTANT Ot 305.1 TOBACCO USE DISORDER 08/31/2014 THOMPSON QURESHI PLATFORM CONSULTANT Ot 382.9 OTITIS MEDIA NOS 08/31/2014 THOMPSON QURESHI APRN Ot 784.2 SWELLING IN HEAD NECK 08/31/2014 THOMPSON QURESHI PLATFORM CONSULTANT Ot 910.4 INSECT BITE HEAD 08/31/2014 THOMPSON QURESHI APRN Ot E849.0 ACCIDENT IN HOME 08/31/2014 THOMPSON QURESHI APRN Ot E906.4 NONVENOM ARTHROPOD BITE 08/31/2014 THOMPSON QURESHI APRN Ot V58.67 LONG-TERM (CURRENT) USE OF INSULIN 09/01/2014 THOMPSON QURESHI APRN Ot 373.00 BLEPHARITIS NOS 09/01/2014 THOMPSON QURESHI PLATFORM CONSULTANT Ot 379.92 SWELLING OR MASS OF EYE 10/01/2014 HUNAG DO, FELICIA K Ot 272.0 PURE HYPERCHOLESTEROLEM [...] L V03.82 PPV23 (PNEUMOVAX) DX 10/23/2014 MADL PLATFORM CONSULTANT, ETELVINA L 112.3 CANDIDIASIS OF SKIN AND [...] JOINT INVOLVING ANKLE AND FOOT 12/11/2014 HUGOL PLATFORM CONSULTANTSARA BowserETELVINA L 719.46 PAIN IN JOINT INVOLVING LOWER LEG 12/11/2014 MADL PLATFORM CONSULTANTANDREZ BowserNYA L 719.47 PAIN IN JOINT INVOLVING ANKLE AND FOOT 12/11/2014 SALGUERO DO LADONNA K 719.46 PAIN IN JOINT INVOLVING LOWER LEG 12/11/2014 NOEMY PRAKASH LADONNA K 719.47 PAIN IN JOINT INVOLVING ANKLE AND FOOT 12/11/2014 MADL SARA HARRISWNYA L 719.46 PAIN IN JOINT INVOLVING LOWER LEG 12/11/2014 MADL PLATFORM CONSULTANTANDREZ BowserNYA L 719.47 PAIN IN JOINT INVOLVING [...] HARRIS, ETELVINA L 757.39 POROKEROTOSIS 02/09/2015 MADL PLATFORM CONSULTANT, ETELVINA L 788.1 DYSURIA 02/09/2015 MADL PLATFORM CONSULTANT, ETELVINA L 789.02 ABDOMINAL PAIN LEFT UPPER QUADRANT 02/09/2015 NOEMY PRAKASH LADONNA K 735.4 HAMMER TOE (ACQUIRED) 02/09/2015 NOEMY DO LADONNA K 757.39 POROKEROTOSIS 02/09/2015 SALGUERO DO LADONNA K 788.1 DYSURIA 02/09/2015 NOEMY PRAKASH LADONNA K 789.02 ABDOMINAL PAIN LEFT UPPER QUADRANT 02/09/2015 MADL PLATFORM CONSULTANT, ETELVINA L 735.4 HAMMER TOE (ACQUIRED) 02/09/2015 AISHA HARRIS, ETELVINA L 757.39 POROKEROTOSIS 02/09/2015 HUGOL KIMBERLY, ETELVINA L 788.1 DYSURIA 02/09/2015 AISHA HARRIS, ETELVINA L 789.02 ABDOMINAL PAIN LEFT UPPER QUADRANT 02/19/2015 MADL KIMBERLY, ETELVINA L 780.2 SYNCOPE AND COLLAPSE 02/19/2015 SALGUERO DO, LADONNA K 780.2 SYNCOPE AND COLLAPSE 02/19/2015 MADL PLATFORM CONSULTANT, ETELVINA L 780.2 SYNCOPE AND COLLAPSE 02/20/2015 QUE LEON MD Ot 250.00 DIAB MELVA WO COMPL, TYPE II OR UNSPEC TY 02/20/2015 QUE LEON MD Ot 305.1 TOBACCO USE DISORDER 02/20/2015 QUE LEON MD Ot 401.9 HYPERTENSION NOS 02/20/2015 QUE LEON MD Ot 414.01 CORONARY ATHEROSCLEROSIS OF [place] CORON 02/20/2015 QUE LEON MD Ot 458.0 ORTHOSTATIC HYPOTENSION 02/20/2015 QUE LEON MD Ot 584.9 ACUTE RENAL FAILURE, UNSPECIFIED 02/20/2015 QUE LEON MD Ot V15.88 HISTORY OF FALL 02/27/2015 ETELVINA LEONARD APRN L 593.9 UNSPECIFIED DISORDER OF KIDNEY AND URETER 03/01/2015 HAMMAD LEONARDA 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 Ot 414.00 03/01/2015 HAMMAD LEONARDA 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 Ot 780.2 03/01/2015 MADHAMMAD GoodmanA 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 Ot V45.82 03/26/2015 Ot 786.09 03/26/2015 Ot [...] Garcia Ot V74.8 03/26/2015 BAIKYLAH ABAD 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 Ot 396.3 03/26/2015 BAIMA 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 Ot 397.0 03/26/2015 BAIJENNIFFER 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 Ot 401.9 03/26/2015 BAIJENNIFFER 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 Ot 414.00 03/26/2015 BAIMA 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 Ot 250.00 03/26/2015 BAIMA, 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 Ot 272.4 03/26/2015 BAIMA, 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 Ot 305.1 03/26/2015 BAIMA, 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 Ot 401.9 03/26/2015 BAIMA, 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 Ot 414.00 03/26/2015 BAIMA, 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 Ot 424.90 03/26/2015 BAIMA, 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 Ot 496 03/26/2015 TAMARA OLVERA, PATRICIA L Ot 996.78 03/26/2015 TAMARA OLVERA, PATRICIA L Ot V72.63 03/26/2015 TAMARA OLVERA, PATRICIA L Ot V72.81 03/26/2015 TAMARA OLVERA, PATRICIA L Ot V74.8 03/26/2015 KARYN OLVERA, BYRON M Ot 272.4 03/26/2015 KARYN OLVERA, BYRON M Ot 338.29 03/26/2015 KARYN OLVERA, BYRON M Ot 401.9 03/26/2015 BAIMA, 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 Ot 414.00 03/26/2015 BAIMA, 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 Ot 429.3 03/26/2015 SHANA OLVERA, JEFERSON M Ot V72.84 03/26/2015 BAIMA, 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 Ot 272.4 03/26/2015 SHANA OLVERA, JEFERSON M Ot V72.84 03/26/2015 KOFI OLVERA FAC, ALI FACP CCDS Ot 272.4 03/26/2015 KOFI OLVERA FACC, ALI FACP CCDS Ot 414.00 03/26/2015 KOFI OLVERA FACC, ALI FACP CCDS Ot 414.8 03/26/2015 KOFI OLVERA FACC, ALI FACP CCDS Ot 458.9 03/26/2015 KOFI OLVERA FACC, ALI FACP CCDS Ot 780.4 03/26/2015 MADL, ETELVINA 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 Ot 414.00 03/26/2015 MADL, ETELVINA 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 Ot 780.2 03/26/2015 MADL, ETELVINA 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 Ot V45.82 03/26/2015 BAIMA, 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 Ot 272.4 03/26/2015 BAIMA, 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 Ot 276.9 03/26/2015 BAIMA, 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 Ot 401.9 03/26/2015 BAIKYLAH ABAD 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 Ot 414.00 03/26/2015 GELLENDER DO, BILL A Ot 250.00 03/26/2015 GELLENDER DO, BILL A Ot 272.4 03/26/2015 GELLENDER DO, BILL A Ot 414.00 04/05/2015 BAIJENNIFFER, 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 Ot 272.4 04/05/2015 BAIMA, 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 Ot 276.9 04/05/2015 BAIMA, 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 Ot 401.9 04/05/2015 BAIJENNIFFER, 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 Ot 414.00 04/05/2015 GELLENDER DO, BILL A Ot 250.00 04/05/2015 GELLENDER DO, BILL A Ot 272.4 04/05/2015 [facility] A Ot 414.00 04/06/2015 MADLETELVINA 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 Ot 414.00 04/06/2015 MADL, ETELVINA 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 Ot 780.2 04/06/2015 MADL, ETELVINA 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 Ot V45.82 05/22/2015 [facility], BILL Garcia Ot 724.5 05/22/2015 [facility] BILL Garcia Ot 733.90 05/24/2015 [facility]ILL Garcia Ot 715.37 [...] FACP CCDS Ot 530.81 07/16/2015 THOMPSON QURESHI PLATFORM CONSULTANT Ot 916.0 ABRASION HIP LEG 07/16/2015 THOMPSON QURESHI PLATFORM CONSULTANT Ot 923.10 CONTUSION OF FOREARM 07/16/2015 THOMPSON QURESHI PLATFORM CONSULTANT Ot 959.7 LOWER LEG INJURY NOS 07/16/2015 THOMPSON QURESHI PLATFORM CONSULTANT Ot E000.8 OTHER EXTERNAL CAUSE STATUS 07/16/2015 THOMPSON QURESHI PLATFORM CONSULTANT Ot E849.6 ACCIDENT IN PUBLIC BLDG 07/16/2015 THOMPSON QURESHI PLATFORM CONSULTANT Ot E888.9 FALL NOS 07/23/2015 BRYN DO, [...] A Ot V74.8 09/13/2015 BAIMA, 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 Ot 396.3 09/13/2015 BAIMA, 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 Ot 397.0 09/13/2015 BAIMA, 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 Ot 401.9 09/13/2015 BAIMA, 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 Ot 414.00 09/13/2015 BAIMA, 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 Ot 250.00 09/13/2015 BAIMA, 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 Ot 272.4 09/13/2015 BAIMA, 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 Ot 305.1 09/13/2015 BAIMA, 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 Ot 401.9 09/13/2015 BAIMA, 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 Ot 414.00 09/13/2015 BAIMA, 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 Ot 424.90 09/13/2015 BAIMA, 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 Ot 496 09/13/2015 TAMARA OLVERA, PATRICIA L Ot 996.78 09/13/2015 TAMARA OLVERA, PATRICIA L Ot V72.63 09/13/2015 TAMARA OLVERA, PATRICIA L Ot V72.81 09/13/2015 TAMARA OLVERA, PATRICIA L Ot V74.8 09/13/2015 KARYN OLVERA, BYRON Bruner Ot 272.4 09/13/2015 BYRON BOSS MD Ot 338.29 09/13/2015 KARYN OLVERA, BYRON Bruner Ot 401.9 09/13/2015 BAIMA, 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 Ot 414.00 09/13/2015 BAIMA, 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 Ot 429.3 09/13/2015 SHANA OLVERA, JEFERSON Bruner Ot V72.84 09/13/2015 BAIMA, 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 Ot 272.4 09/13/2015 SHANA OLVERA, JEFERSON Bruner Ot V72.84 09/13/2015 KOFI OLVERA FACC, ALI FACP CCDS Ot 272.4 09/13/2015 KOFI OLVERA FACC, ALI FACP CCDS Ot 414.00 09/13/2015 KOFI OLVERA FACC, ALI FACP CCDS Ot 414.8 09/13/2015 KOFI OLVERA FACC, ALI FACP CCDS Ot 458.9 09/13/2015 KOFI OLVERA FACC, ALI FACP CCDS Ot 780.4 09/13/2015 MADL, ETELVINA 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 Ot 414.00 09/13/2015 MADL, ETELVINA 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 Ot 780.2 09/13/2015 MADL, ETELVINA 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 Ot V45.82 09/13/2015 BAIMA, 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 Ot 272.4 09/13/2015 BAIMA, 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 Ot 276.9 09/13/2015 BAIMA, 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 Ot 401.9 09/13/2015 BAIMA, 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 Ot 414.00 09/13/2015 GELLENDER DO, BILL A [...] FACP CCDS Ot 305.1 09/13/2015 KOFI OLVERA [facility], ALI FACP CCDS Ot 401.9 09/13/2015 KOFI OLVERA [facility], ALI FACP CCDS Ot 414.00 09/13/2015 KOFI OLVERA FAC, ALI FACP CCDS Ot 447.72 09/13/2015 KOFI OLVERA FAC, ALI FACP CCDS Ot 458.9 09/13/2015 KOFI OLVERA [facility], ALI FACP CCDS Ot 496 09/13/2015 KOFI OLVERA [facility], ALI FACP CCDS Ot 530.81 09/13/2015 GELLENDER DO, BILL Garcia Ot 250.00 09/13/2015 GELLENDER DO, BILL A Ot 959.7 09/13/2015 GELLENDER DO, BILL A Ot E000.8 09/13/2015 GELLENDER DO, BILL Garcia Ot E928.9 09/25/2015 KYLAH CREWS INSIDE CONTRACTOR SALES Ot E78.5 09/25/2015 KYLAH CREWS INSIDE CONTRACTOR SALES Ot I25.9 10/07/2015 JESSIE OLVERA, BETTINA Nation [...] 10/07/2015 JESSIE OLVERA, BETTINA Nation Ot Z79.4 [facility] (CURRENT) USE OF INSULIN 10/12/2015 GELLENDER DO, [...] 03/09/2016 MARLA EVERETT MD Ot Z79.899 OTHER [facility] (CURRENT) DRUG THERAPY 03/11/2016 MARLA EVERETT MD [...] CCDS Ot I25.10 ATHSCL HEART DISEASE OF [place] CORONARY 03/21/2016 KOFI OLVERA FACC, ALI FACP CCDS Ot E78.5 HYPERLIPIDEMIA, UNSPECIFIED 03/21/2016 KOFI OLVERA FACC, ALI FACP CCDS Ot I25.10 ATHSCL HEART DISEASE OF [place] CORONARY 04/02/2016 SHANA OLVERA, JEFERSON Bruner Ot R13.10 DYSPHAGIA, UNSPECIFIED 04/02/2016 SHANA OLVERA, JEFERSON Bruner Ot Z01.818 ENCOUNTER FOR OTHER PREPROCEDURAL EXAMIN 04/03/2016 SHANA OLVERA, JEFERSON Bruner Ot R13.10 DYSPHAGIA, UNSPECIFIED 04/03/2016 SHANA OLVERA, JEFERSNO Bruner Ot Z01.818 ENCOUNTER FOR OTHER PREPROCEDURAL [...] KEERTHI 12/30/2016 Ot 414.01 CORONARY ATHEROSCLEROSIS OF [place] CORON 12/30/2016 Ot 786.50 CHEST PAIN NOS [...] SCREEN-BACTERIAL DIS NEC 12/30/2016 BAIMA, 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 Ot 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 12/30/2016 BAIMA, 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 Ot 397.0 TRICUSPID VALVE DISEASE 12/30/2016 BAIMA, 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 Ot 401.9 HYPERTENSION NOS 12/30/2016 BAIMA, 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 Ot 414.00 CORON ATHEROSCLER NOS TYPE VESSEL, NATIV 12/30/2016 BAIMA, 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 Ot 250.00 DIAB MELVA WO COMPL, TYPE II OR UNSPEC TY 12/30/2016 BAIMA, 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 Ot 272.4 HYPERLIPIDEMIA NEC/NOS 12/30/2016 KYLAH CREWS 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 Ot 305.1 TOBACCO USE DISORDER 12/30/2016 KYLAH CREWS 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 Ot 401.9 HYPERTENSION NOS 12/30/2016 KYLAH CREWS 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 Ot 414.00 CORON ATHEROSCLER NOS TYPE VESSEL, NATIV 12/30/2016 KYLAH CREWS 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 Ot 424.90 ENDOCARDITIS NOS 12/30/2016 KYLAH CREWS 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 Ot 496 CHR AIRWAY OBSTRUCT NEC 12/30/2016 PATRICIA MCDONALD MD Ot 996.78 OTH COMP DUE TO OTH INTRNL ORTHPEDIC DEV 12/30/2016 PATRICIA MCDONALD MD Ot V72.63 PRE-PROCEDURAL LABORATORY EXAMINATION 12/30/2016 PATRICIA MCDONALD MD Ot V72.81 [id number]-[id number] CARDIOVASCULAR 12/30/2016 PATRICIA MCDONALD MD Ot V74.8 SCREEN-BACTERIAL DIS NEC 12/30/2016 BYRON BOSS MD Ot 272.4 HYPERLIPIDEMIA NEC/NOS 12/30/2016 BYRON BOSS MD Ot 338.29 OTHER CHRONIC PAIN 12/30/2016 BYRON BOSS MD Ot 401.9 HYPERTENSION NOS 12/30/2016 KYLAH CREWS 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 Ot 414.00 CORON ATHEROSCLER NOS TYPE VESSEL, NATIV 12/30/2016 KYLAH CREWS 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 Ot 429.3 CARDIOMEGALY 12/30/2016 JEFERSON SALDANA MD Ot V72.84 EXAM PRE-OPERATIVE NOS 12/30/2016 PERLAKYLAH ABAD 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 Ot 272.4 HYPERLIPIDEMIA NEC/NOS 12/30/2016 SHANA OLVERA, [...] 780.4 DIZZINESS AND GIDDINESS 12/30/2016 KYLAH CREWS [employer] SALES Ot E78.5 HYPERLIPIDEMIA, UNSPECIFIED 12/30/2016 KYLAH CREWS [employer] SALES Ot I25.9 CHRONIC ISCHEMIC HEART DISEASE, UNSPECIF 12/30/2016 ETELVINA LEONARD INS[employer]OR SALES Ot 414.00 CORON ATHEROSCLER NOS TYPE VESSEL, NATIV 12/30/2016 ETELVINA LEONARD [employer] SALES Ot 780.2 SYNCOPE AND COLLAPSE 12/30/2016 ETELVINA LEONARD [employer] SALES Ot V45.82 PERCUTANEOUS TRANSLUM CORON ANGIOPLASTY 12/30/2016 KYLAH CREWS [employer] SALES Ot 272.4 HYPERLIPIDEMIA NEC/NOS 12/30/2016 KYLAH CREWS [employer] SALES Ot 276.9 ELECTROLYT/FLUID DIS NEC 12/30/2016 KYLAH CREWS [employer] SALES Ot 401.9 HYPERTENSION NOS 12/30/2016 KYLAH CREWS [employer] SALES Ot 414.00 CORON ATHEROSCLER NOS TYPE VESSEL, [...] CHR AIRWAY OBSTRUCT NEC 12/30/2016 KOFI OLVERA [facility], ALI FACP CCDS Ot 530.81 ESOPHAGEAL REFLUX 12/30/2016 KYLAH CREWS [employer] SALES Ot I71.4 ABDOMINAL AORTIC ANEURYSM, WITHOUT RUPTU [...] INFECTION, SITE NOT SPECIF 12/30/2016 KOFI OLVERA [facility], BRADLY FACP CCDS Ot E78.5 HYPERLIPIDEMIA, UNSPECIFIED 12/30/2016 KOFI OLVERA [facility], BRADLY FAC CCDS Ot I25.10 ATHSCL HEART DISEASE OF [place] CORONARY 01/01/2017 ADELFO WASHINGTON INS[employer]OR SALES Ot I71.4 ABDOMINAL AORTIC ANEURYSM, WITHOUT RUPTU 01/01/2017 ADEFLO [place] INS[employer]OR SALES Ot I71.4 ABDOMINAL AORTIC ANEURYSM, WITHOUT RUPTU 01/01/2017 ADELFO [place] [employer] SALES Ot I71.4 ABDOMINAL AORTIC ANEURYSM, WITHOUT RUPTU 01/21/2017 ADELFO [place] [employer] SALES Ot I71.4 ABDOMINAL AORTIC ANEURYSM, WITHOUT RUPTU [...] SCREEN-BACTERIAL DIS NEC 11/26/2017 BAIMA, 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 Ot 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 11/26/2017 BAIMA, 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 Ot 397.0 TRICUSPID VALVE DISEASE 11/26/2017 BAIMA, 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 Ot 401.9 HYPERTENSION NOS 11/26/2017 BAIMA, 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 Ot 414.00 CORON ATHEROSCLER NOS TYPE VESSEL, NATIV 11/26/2017 BAIMA, 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 Ot 250.00 DIAB MELVA WO COMPL, TYPE II OR UNSPEC TY 11/26/2017 BAIMA, 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 Ot 272.4 HYPERLIPIDEMIA NEC/NOS 11/26/2017 BAIMA, 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 Ot 305.1 TOBACCO USE DISORDER 11/26/2017 BAIMA, 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 Ot 401.9 HYPERTENSION NOS 11/26/2017 BAIMA, 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 Ot 414.00 CORON ATHEROSCLER NOS TYPE VESSEL, NATIV 11/26/2017 BAIMA, 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 Ot 424.90 ENDOCARDITIS NOS 11/26/2017 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, 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 Ot 496 CHR AIRWAY OBSTRUCT NEC 11/26/2017 PATRICIA MCDONALD MD Ot 996.78 OTH COMP DUE TO OTH INTRNL ORTHPEDIC DEV 11/26/2017 PATRCIIA MCDONALD MD, Ot V72.63 PRE-PROCEDURAL LABORATORY EXAMINATION 11/26/2017 PATRICIA MCDONALD MD, Ot V72.81 [id number] CARDIOVASCULAR 11/26/2017 REVEAL MD, PATRICIA L Ot V74.8 SCREEN-BACTERIAL DIS NEC 11/26/2017 KARYN OLVERA, BYRON Bruner Ot 272.4 HYPERLIPIDEMIA NEC/NOS 11/26/2017 KARYN OLVERA, BYRON Bruner Ot 338.29 OTHER CHRONIC PAIN 11/26/2017 KARYN OLVERA, BYRON Bruner Ot 401.9 HYPERTENSION NOS 11/26/2017 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, 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 Ot 414.00 CORON ATHEROSCLER NOS TYPE VESSEL, NATIV 11/26/2017 BAIMA, 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 Ot 429.3 CARDIOMEGALY 11/26/2017 SHANA OLVERA, JEFERSON Bruner Ot V72.84 EXAM PRE-OPERATIVE NOS 11/26/2017 BAIMA, 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 Ot 272.4 HYPERLIPIDEMIA NEC/NOS 11/26/2017 SHANA OLVERA, [...] DIZZINESS AND GIDDINESS 11/26/2017 BAIMA, 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 Ot E78.5 HYPERLIPIDEMIA, UNSPECIFIED 11/26/2017 BAIMA, 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 Ot I25.9 CHRONIC ISCHEMIC HEART DISEASE, UNSPECIF 11/26/2017 MADL, ETELVINA 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 Ot 414.00 CORON ATHEROSCLER NOS TYPE VESSEL, NATIV 11/26/2017 MADL, ETELVINA 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 Ot 780.2 SYNCOPE AND COLLAPSE 11/26/2017 MADL, ETELVINA 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 Ot V45.82 PERCUTANEOUS TRANSLUM CORON ANGIOPLASTY 11/26/2017 BAIMA, 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 Ot 272.4 HYPERLIPIDEMIA NEC/NOS 11/26/2017 BAIMA, 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 Ot 276.9 ELECTROLYT/FLUID DIS NEC 11/26/2017 BAIMA, 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 Ot 401.9 HYPERTENSION NOS 11/26/2017 BAIMA, 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 Ot 414.00 CORON ATHEROSCLER NOS TYPE VESSEL, [...] Ot 530.81 ESOPHAGEAL REFLUX 11/26/2017 KYLAH CREWS INSIDE CONTRACTOR SALES Ot I71.4 ABDOMINAL AORTIC ANEURYSM, WITHOUT RUPTU [...] CCDS Ot I25.10 ATHSCL HEART DISEASE OF [place] CORONARY 11/26/2017 ADELFO WASHINGTON INSIDE CONTRACTOR SALES Ot I71.4 ABDOMINAL AORTIC ANEURYSM, WITHOUT RUPTU [...] CCDS Ot I25.10 ATHSCL HEART DISEASE OF [place] CORONARY 12/01/2017 KOFI OLVERA FACC, ALI FACP [...] CCDS Ot I25.10 ATHSCL HEART DISEASE OF [place] CORONARY 12/03/2017 KOFI LOVERA FACC, ALI FACP CCDS Ot I25.5 ISCHEMIC [...] CCDS Ot I25.10 ATHSCL HEART DISEASE OF [place] CORONARY 12/10/2017 KOFI OLVERA FACC, ALI FACP CCDS Ot I25.5 ISCHEMIC CARDIOMYOPATHY 12/10/2017 KOFI OLVERA FACC, ALI FACP CCDS Ot I73.9 PERIPHERAL VASCULAR DISEASE, UNSPECIFIED 12/10/2017 KOFI OLVERA FACC, ALI FACP CCDS Ot J43.8 OTHER EMPHYSEMA 12/10/2017 KOFI OLVERA FACC, ALI FACP CCDS Ot R06.02 SHORTNESS OF BREATH 12/10/2017 [facility], [facility] F[facility] CCDS Ot Z72.0 TOBACCO USE 12/17/2017 KOFI OLVERA FACC, ALI FACP CCDS Ot E11.9 TYPE 2 DIABETES MELLITUS WITHOUT COMPLIC 12/17/2017 KOFI OLVERA FACC, ALI FACP CCDS Ot I10 ESSENTIAL (PRIMARY) HYPERTENSION 12/17/2017 KOFI OLVERA FACC, ALI FACP CCDS Ot I25.10 ATHSCL HEART DISEASE OF [place] CORONARY 12/17/2017 KOFI OLVERA FACC, ALI FACP CCDS Ot I25.5 ISCHEMIC CARDIOMYOPATHY 12/17/2017 [facility], [facility]I FACP CCDS Ot I73.9 PERIPHERAL VASCULAR DISEASE, UNSPECIFIED 12/17/2017 KOFI OLVERA FACC, ALI FACP CCDS Ot J43.8 OTHER EMPHYSEMA 12/17/2017 KOFI OLVERA FACC, ALI FACP CCDS Ot R06.02 SHORTNESS OF BREATH 12/17/2017 KOFI OLVERA FACC, ALI FACP CCDS Ot Z72.0 TOBACCO USE 12/22/2017 KYLAH CREWS INSIDE CONTRACTOR SALES Ot I25.5 ISCHEMIC CARDIOMYOPATHY 12/28/2017 KOFI OLVERA FACC, ALI FACP CCDS Ot E11.9 TYPE 2 DIABETES MELLITUS WITHOUT COMPLIC 12/28/2017 KOFI OLVERA FACC, ALI FACP CCDS Ot I10 ESSENTIAL (PRIMARY) HYPERTENSION 12/28/2017 KOFI OLVERA FACC, ALI FACP CCDS Ot I25.10 ATHSCL HEART DISEASE OF [place] CORONARY 12/28/2017 KOFI OLVERA FACC, ALI FACP [...] CCDS Ot I25.10 ATHSCL HEART DISEASE OF [place] CORONARY 12/30/2017 KOFI OLVERA FAC, ALI FACP [...] INITIAL ENCOUNTER 01/07/2018 HARDEEP DORANTES Ot Z79.84 [facility] (CURRENT) USE OF ORAL HYPOGLYC 01/07/2018 HARDEEP [...] CCDS Ot I25.10 ATHSCL HEART DISEASE OF [place] CORONARY 01/08/2018 KOFI OLVERA FACC, BRADLY FACP [...] INITIAL ENCOUNTER 01/11/2018 HARDEEP DORANTES Ot Z79.84 [facility] (CURRENT) USE OF ORAL HYPOGLYC 01/11/2018 HARDEEP [...] INITIAL ENCOUNTER 01/13/2018 HARDEEP DORANTES Ot Z79.84 [facility] (CURRENT) USE OF ORAL HYPOGLYC 01/13/2018 HARDEEP [...] MD, Ot I25.10 ATHSCL HEART DISEASE OF [place] CORONARY 02/15/2018 MARLA EVERETT MD, Ot J43.9 EMPHYSEMA, UNSPECIFIED 02/15/2018 MARLA EVERETT MD, Ot K21.9 GASTRO-ESOPHAGEAL REFLUX DISEASE WITHOUT 02/15/2018 MARLA EVERETT MD Ot R07.89 OTHER CHEST PAIN 02/15/2018 MARLA EVERETT MD, Ot Z79.82 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 02/15/2018 MARLA EVERETT MD Ot Z79.84 [facility] (CURRENT) USE OF ORAL HYPOGLYC 02/15/2018 MARLA [...] MD Ot I25.10 ATHSCL HEART DISEASE OF [place] CORONARY 02/17/2018 MARLA EVERETT MD, Ot J43.9 EMPHYSEMA, UNSPECIFIED 02/17/2018 MARLA EVERETT MD, Ot K21.9 GASTRO-ESOPHAGEAL REFLUX DISEASE WITHOUT 02/17/2018 MARLA EVERETT MD Ot R07.89 OTHER CHEST PAIN 02/17/2018 MARLA EVERETT MD Ot Z79.82 [facility] (CURRENT) USE OF ASPIRIN 02/17/2018 MARLA EVERETT MD Ot Z79.84 [facility] (CURRENT) USE OF ORAL HYPOGLYC 02/17/2018 MARLA [...] Adriana Ot I25.10 ATHSCL HEART DISEASE OF [place] CORONARY 02/21/2018 FELICIA ENCINAS DO Ot J43.9 EMPHYSEMA, UNSPECIFIED 02/21/2018 HUANG TRENTON PRAKASHA Adriana Ot K21.9 GASTRO-ESOPHAGEAL REFLUX DISEASE WITHOUT 02/21/2018 HUANG TRENTON PRAKASHA Adriana Ot N39.0 URINARY TRACT INFECTION, SITE NOT SPECIF 02/21/2018 HUANG FELICIA PRAKASH Ot R20.2 PARESTHESIA OF SKIN 02/21/2018 HUANG FELICIA PRAKASH Ot R53.1 WEAKNESS 02/21/2018 HUANG TRENTON PRAKASHA Adriana Ot 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 02/21/2018 HUANG [...] Adriana Ot I25.10 ATHSCL HEART DISEASE OF [place] CORONARY 02/23/2018 HUANG PRAKASH FELICIA Adriana Ot J43.9 EMPHYSEMA, UNSPECIFIED 02/23/2018 HUANG PRAKASH FELICIA Wright Ot K21.9 GASTRO-ESOPHAGEAL REFLUX DISEASE WITHOUT 02/23/2018 HUANG DO FELICIA Wright Ot N39.0 URINARY TRACT INFECTION, SITE NOT SPECIF 02/23/2018 HUANG PRAKASH FELICIA Adriana Ot R20.2 PARESTHESIA OF SKIN 02/23/2018 HUANG FELICIA Adriana Ot R53.1 WEAKNESS 02/23/2018 HUANG PRAKASH FELICIA Adriana Ot 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 02/23/2018 HUANG [...] SCREEN-BACTERIAL DIS NEC 03/02/2018 BAIMA, 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 Ot 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 03/02/2018 BAIMA, 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 Ot 397.0 TRICUSPID VALVE DISEASE 03/02/2018 BAIMA, 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 Ot 401.9 HYPERTENSION NOS 03/02/2018 BAIMA, 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 Ot 414.00 CORON ATHEROSCLER NOS TYPE VESSEL, NATIV 03/02/2018 BAIMA, 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 Ot 250.00 DIAB MELVA WO COMPL, TYPE II OR UNSPEC TY 03/02/2018 BAIMA, 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 Ot 272.4 HYPERLIPIDEMIA NEC/NOS 03/02/2018 BAIMA, 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 Ot 305.1 TOBACCO USE DISORDER 03/02/2018 BAIMA, 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 Ot 401.9 HYPERTENSION NOS 03/02/2018 BAIMA, 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 Ot 414.00 CORON ATHEROSCLER NOS TYPE VESSEL, NATIV 03/02/2018 BAIMA, 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 Ot 424.90 ENDOCARDITIS NOS 03/02/2018 BAIMA, 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 Ot 496 CHR AIRWAY OBSTRUCT NEC 03/02/2018 PATRICIA MCDONALD MD Ot 996.78 OTH COMP DUE TO OTH INTRNL ORTHPEDIC DEV 03/02/2018 PATRICIA MCDONALD MD Ot V72.63 PRE-PROCEDURAL LABORATORY EXAMINATION 03/02/2018 PATRICIA MCDONALD MD Ot V72.81 [id number] CARDIOVASCULAR 03/02/2018 PATRICIA MCDONALD MD Ot V74.8 SCREEN-BACTERIAL DIS NEC 03/02/2018 BYRON BOSS MD Ot 272.4 HYPERLIPIDEMIA NEC/NOS 03/02/2018 KARYN OLVERA, BYRON Bruner Ot 338.29 OTHER CHRONIC PAIN 03/02/2018 KARYN OLVERA, BYRON Bruner Ot 401.9 HYPERTENSION NOS 03/02/2018 BAIMA, 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 Ot 414.00 CORON ATHEROSCLER NOS TYPE VESSEL, NATIV 03/02/2018 BAIMA, 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 Ot 429.3 CARDIOMEGALY 03/02/2018 SHANA OLVERA, JEFERSON Bruner Ot V72.84 EXAM PRE-OPERATIVE NOS 03/02/2018 BAIMA, 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 Ot 272.4 HYPERLIPIDEMIA NEC/NOS 03/02/2018 SHANA OLVERA, [...] DIZZINESS AND GIDDINESS 03/02/2018 BAIMA, 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 Ot E78.5 HYPERLIPIDEMIA, UNSPECIFIED 03/02/2018 BAIMA, 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 Ot I25.9 CHRONIC ISCHEMIC HEART DISEASE, UNSPECIF 03/02/2018 MADL, ETELVINA 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 Ot 414.00 CORON ATHEROSCLER NOS TYPE VESSEL, NATIV 03/02/2018 MADL, ETELVINA 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 Ot 780.2 SYNCOPE AND COLLAPSE 03/02/2018 MADL, ETELVINA 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 Ot V45.82 PERCUTANEOUS TRANSLUM CORON ANGIOPLASTY 03/02/2018 BAIMA, 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 Ot 272.4 HYPERLIPIDEMIA NEC/NOS 03/02/2018 BAIMA, 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 Ot 276.9 ELECTROLYT/FLUID DIS NEC 03/02/2018 BAIMA, 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 Ot 401.9 HYPERTENSION NOS 03/02/2018 BAIMA, 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 Ot 414.00 CORON ATHEROSCLER NOS TYPE VESSEL, [...] Ot 530.81 ESOPHAGEAL REFLUX 03/02/2018 KYLAH CREWS INSIDE CONTRACTOR SALES Ot I71.4 ABDOMINAL AORTIC ANEURYSM, WITHOUT RUPTU [...] CCDS Ot I25.10 ATHSCL HEART DISEASE OF [place] CORONARY 03/02/2018 ADELFO WASHINGTON INSIDE CONTRACTOR SALES Ot I71.4 ABDOMINAL AORTIC ANEURYSM, WITHOUT RUPTU [...] CCDS Ot I25.10 ATHSCL HEART DISEASE OF [place] CORONARY 03/02/2018 KOFI OLVERA FACC, ALI FACP [...] CCDS Ot I25.10 ATHSCL HEART DISEASE OF [place] CORONARY 03/02/2018 KOFI OLVERA FACC, ALI FACP [...] CCDS Ot I25.10 ATHSCL HEART DISEASE OF [place] CORONARY 03/02/2018 KOFI OLVERA FACC, ALI FACP CCDS Ot I25.5 ISCHEMIC CARDIOMYOPATHY 03/02/2018 KOFI OLVERA FACC, ALI FACP CCDS Ot I73.9 PERIPHERAL VASCULAR DISEASE, UNSPECIFIED 03/02/2018 KOFI OLVERA FACC, ALI FACP CCDS Ot J43.8 OTHER EMPHYSEMA 03/02/2018 KOFI OLVERA FACC, ALI FACP CCDS Ot R06.02 SHORTNESS OF BREATH 03/02/2018 KOFI OLVERA FACC, ALI FACP CCDS Ot Z72.0 TOBACCO USE 03/02/2018 KYLAH CREWS INSIDE CONTRACTOR SALES Ot I25.5 ISCHEMIC CARDIOMYOPATHY 03/02/2018 KOFI OLVERA FACC, ALI FACP CCDS Ot E11.9 TYPE 2 DIABETES MELLITUS WITHOUT COMPLIC 03/02/2018 KOFI OLVERA FACC, ALI FACP CCDS Ot E78.4 OTHER HYPERLIPIDEMIA 03/02/2018 KOFI OLVERA FACC, ALI FACP CCDS Ot I25.10 ATHSCL HEART DISEASE OF [place] CORONARY 03/02/2018 KOFI OLVERA FACC, ALI FACP [...] 03/03/2018 LEONEL ORTIZ MD Ot Z79.899 OTHER [facility] (CURRENT) DRUG THERAPY 03/03/2018 LEONEL ORTIZ MD Ot Z88.1 ALLERGY STATUS TO OTHER ANTIBIOTIC AGENT 03/03/2018 LEONEL ORTIZ MD Ot Z88.5 ALLERGY STATUS [...] 03/04/2018 LEONEL ORTIZ MD Ot Z79.899 OTHER [facility] (CURRENT) DRUG THERAPY 03/04/2018 LEONEL ORTIZ MD [...] CCDS Ot I25.10 ATHSCL HEART DISEASE OF [place] CORONARY 03/09/2018 KOFI OLVERA FACC, ALI FACP [...] OLVERA FACC, ALI FACP CCDS Ot Z79.82 [facility] (CURRENT) USE OF ASPIRIN 03/09/2018 KOFI OLVERA FACC, ALI FACP CCDS Ot 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 03/09/2018 KOFI OLVERA FACC, ALI FACP CCDS Ot Z79.899 OTHER [facility] (CURRENT) DRUG THERAPY 03/09/2018 KOFI OLVERA FACC, [...] 03/10/2018 LEONEL ORTIZ MD, Ot Z79.899 OTHER [employer] (CURRENT) DRUG THERAPY 03/10/2018 LEONEL ORTIZ MD [...] CCDS Ot I25.10 ATHSCL HEART DISEASE OF [place] CORONARY 03/10/2018 KOFI HERNÁNDEZC, ALI FACP CCDS [...] KIRBY MD, FACC FACP CCDS Ot Z79.82 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 03/10/2018 BRADLY KIRBY MD, FACC FACP CCDS Ot Z79.84 [facility] (CURRENT) USE OF ORAL HYPOGLYC 03/10/2018 BRADLY KIRBY MD, FACC FACP CCDS Ot Z79.899 OTHER [facility] (CURRENT) DRUG THERAPY 03/10/2018 BRADLY KIRBY MD, [...] CCDS Ot I25.10 ATHSCL HEART DISEASE OF [place] CORONARY 03/10/2018 BRADLY KIRBY MD, FACC FACP [...] OLVERA FACC, ALI FACP CCDS Ot Z79.82 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 03/10/2018 KOFI HERNÁNDEZC, ALI FACP CCDS Ot 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 03/10/2018 KOFI OLVERA FACC, ALI FACP CCDS Ot Z79.899 OTHER [facility] (CURRENT) DRUG THERAPY 03/10/2018 KOFI OLVERA FACC, [...] V74.8 SCREEN-BACTERIAL DIS NEC 04/08/2018 KYLAH CREWS INSIDE CONTRACTOR SALES Ot 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 04/08/2018 KYLAH CREWS INSIDE CONTRACTOR SALES Ot 397.0 TRICUSPID VALVE DISEASE 04/08/2018 KYLAH CREWS INSIDE CONTRACTOR SALES Ot 401.9 HYPERTENSION NOS 04/08/2018 KYLAH CREWS INSIDE CONTRACTOR SALES Ot 414.00 CORON ATHEROSCLER NOS TYPE VESSEL, NATIV 04/08/2018 KYLAH CREWS 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 Ot 250.00 DIAB MELVA WO COMPL, TYPE II OR UNSPEC TY 04/08/2018 BAIJENNIFFER 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 Ot 272.4 HYPERLIPIDEMIA NEC/NOS 04/08/2018 BAIJENNIFFER 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 Ot 305.1 TOBACCO USE DISORDER 04/08/2018 SCARLETT CREWSHER 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 Ot 401.9 HYPERTENSION NOS 04/08/2018 BAIJENNIFFER 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 Ot 414.00 CORON ATHEROSCLER NOS TYPE VESSEL, NATIV 04/08/2018 BAIJENNIFFER 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 Ot 424.90 ENDOCARDITIS NOS 04/08/2018 KYLAH CREWS 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 Ot 496 CHR AIRWAY OBSTRUCT NEC 04/08/2018 PATRICIA MCDONALD MD Ot 996.78 OTH COMP DUE TO OTH INTRNL ORTHPEDIC DEV 04/08/2018 PATRICIA MCDONALD MD, Ot V72.63 PRE-PROCEDURAL LABORATORY EXAMINATION 04/08/2018 PATRICIA MCDONALD MD Ot V72.81 [id number] CARDIOVASCULAR 04/08/2018 PATRICIA MCDONALD MD Ot V74.8 SCREEN-BACTERIAL DIS NEC 04/08/2018 BYRON BOSS MD Ot 272.4 HYPERLIPIDEMIA NEC/NOS 04/08/2018 BYRON BOSS MD Ot 338.29 OTHER CHRONIC PAIN 04/08/2018 BYRON BOSS MD Ot 401.9 HYPERTENSION NOS 04/08/2018 KYLAH CREWS 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 Ot 414.00 CORON ATHEROSCLER NOS TYPE VESSEL, NATIV 04/08/2018 PERLAKYLAH ABAD 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 Ot 429.3 CARDIOMEGALY 04/08/2018 JEFERSON SALDANA MD Ot V72.84 EXAM PRE-OPERATIVE NOS 04/08/2018 PERLAKYLAH ABAD 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 Ot 272.4 HYPERLIPIDEMIA NEC/NOS 04/08/2018 JEFERSON SALDANA [...] DIZZINESS AND GIDDINESS 04/08/2018 BAIJENNIFFER, 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 Ot E78.5 HYPERLIPIDEMIA, UNSPECIFIED 04/08/2018 BAIMA, 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 Ot I25.9 CHRONIC ISCHEMIC HEART DISEASE, UNSPECIF 04/08/2018 MADL, ETELVINA 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 Ot 414.00 CORON ATHEROSCLER NOS TYPE VESSEL, NATIV 04/08/2018 MADL, ETELVINA 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 Ot 780.2 SYNCOPE AND COLLAPSE 04/08/2018 MADL, ETELVINA 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 Ot V45.82 PERCUTANEOUS TRANSLUM CORON ANGIOPLASTY 04/08/2018 BAIMA, 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 Ot 272.4 HYPERLIPIDEMIA NEC/NOS 04/08/2018 BAIMA, 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 Ot 276.9 ELECTROLYT/FLUID DIS NEC 04/08/2018 BAIJENNIFFER, 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 Ot 401.9 HYPERTENSION NOS 04/08/2018 BAIJENNIFFER, 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 Ot 414.00 CORON ATHEROSCLER NOS TYPE VESSEL, [...] COMPL, TYPE II OR UNSPEC TY 04/08/2018 KOFI OLVERA FACC, ALI FACP CCDS [...] 530.81 ESOPHAGEAL REFLUX 04/08/2018 PERLAJENNIFFER 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 Ot I71.4 ABDOMINAL AORTIC ANEURYSM, WITHOUT RUPTU [...] CCDS Ot I25.10 ATHSCL HEART DISEASE OF [place] CORONARY 04/08/2018 ADELFO WASHINGTON INSIDE CONTRACTOR SALES Ot I71.4 ABDOMINAL AORTIC ANEURYSM, WITHOUT RUPTU [...] CCDS Ot I25.10 ATHSCL HEART DISEASE OF [place] CORONARY 04/08/2018 KOFI OLVERA FACC, BRADLY FACP [...] CCDS Ot I25.10 ATHSCL HEART DISEASE OF [place] CORONARY 04/08/2018 KOFI OLVERA FACC, ALI FACP [...] CCDS Ot I25.10 ATHSCL HEART DISEASE OF [place] CORONARY 04/08/2018 KOFI OLVERA FACC, ALI FACP CCDS Ot I25.5 ISCHEMIC CARDIOMYOPATHY 04/08/2018 KOFI OLVERA FACC, ALI FACP CCDS Ot I73.9 PERIPHERAL VASCULAR DISEASE, UNSPECIFIED 04/08/2018 KOFI OLVERA FACC, ALI FACP CCDS Ot J43.8 OTHER EMPHYSEMA 04/08/2018 KOFI OLVERA FACC, ALI FACP CCDS Ot R06.02 SHORTNESS OF BREATH 04/08/2018 KOFI OLVERA FACC, ALI FACP CCDS Ot Z72.0 TOBACCO USE 04/08/2018 BAIMA, 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 Ot I25.5 ISCHEMIC CARDIOMYOPATHY 04/08/2018 KOFI OLVERA FACC, ALI FACP CCDS Ot E11.9 TYPE 2 DIABETES MELLITUS WITHOUT COMPLIC 04/08/2018 KOFI HERNÁNDEZC, ALI FACP CCDS Ot E78.4 OTHER HYPERLIPIDEMIA 04/08/2018 KOFI OLVERA FACC, ALI FACP CCDS Ot I25.10 ATHSCL HEART DISEASE OF [place] CORONARY 04/08/2018 KOFI OLVERA FACC, ALI FACP [...] CCDS Ot I25.10 ATHSCL HEART DISEASE OF [place] CORONARY 04/08/2018 KOFI HERNÁNDEZC, ALI FACP CCDS [...] CCDS Ot I25.10 ATHSCL HEART DISEASE OF [place] CORONARY 04/08/2018 KOFI OLVERA FACC, ALI FACP [...] Ot I10 ESSENTIAL (PRIMARY) HYPERTENSION 04/08/2018 KOFI OLVREA FACC, ALI FACP CCDS Ot I25.10 ATHSCL HEART DISEASE OF [place] CORONARY 04/08/2018 KOFI OLVERA FACTj, ALI FACP [...] CCDS Ot I25.10 ATHSCL HEART DISEASE OF [place] CORONARY 04/23/2018 KOFI OLVERA FACC, ALI FACP [...] SCREEN-BACTERIAL DIS NEC 04/23/2018 ELEONORA 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 Ot 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 04/23/2018 ELEONORA 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 Ot 397.0 TRICUSPID VALVE DISEASE 04/23/2018 BAIMA, 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 Ot 401.9 HYPERTENSION NOS 04/23/2018 BAIMA, 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 Ot 414.00 CORON ATHEROSCLER NOS TYPE VESSEL, NATIV 04/23/2018 BAIMA, 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 Ot 250.00 DIAB MELVA WO COMPL, TYPE II OR UNSPEC TY 04/23/2018 BAIMA, 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 Ot 272.4 HYPERLIPIDEMIA NEC/NOS 04/23/2018 BAIMA, 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 Ot 305.1 TOBACCO USE DISORDER 04/23/2018 BAIMA, 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 Ot 401.9 HYPERTENSION NOS 04/23/2018 BAIMA, 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 Ot 414.00 CORON ATHEROSCLER NOS TYPE VESSEL, NATIV 04/23/2018 ELEONORA 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 Ot 424.90 ENDOCARDITIS NOS 04/23/2018 ELEONORA 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 Ot 496 CHR AIRWAY OBSTRUCT NEC 04/23/2018 PATRICIA MCDONALD MD Ot 996.78 OTH COMP DUE TO OTH INTRNL ORTHPEDIC DEV 04/23/2018 PATRICIA MCDONALD MD Ot V72.63 PRE-PROCEDURAL LABORATORY EXAMINATION 04/23/2018 PATRICIA MCDONALD MD Ot V72.81 [id number] CARDIOVASCULAR 04/23/2018 PATRICIA MCDONALD MD Ot V74.8 SCREEN-BACTERIAL DIS NEC 04/23/2018 BYRON BOSS MD Ot 272.4 HYPERLIPIDEMIA NEC/NOS 04/23/2018 BYRON BOSS MD Ot 338.29 OTHER CHRONIC PAIN 04/23/2018 BYRON BOSS MD Ot 401.9 HYPERTENSION NOS 04/23/2018 ELEONORA 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 Ot 414.00 CORON ATHEROSCLER NOS TYPE VESSEL, NATIV 04/23/2018 ELEONORA 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 Ot 429.3 CARDIOMEGALY 04/23/2018 JEFERSON SALDANA MD Ot V72.84 EXAM PRE-OPERATIVE NOS 04/23/2018 PERLAMASCARLETT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 Ot 272.4 HYPERLIPIDEMIA NEC/NOS 04/23/2018 JEFERSON SALDANA [...] DIZZINESS AND GIDDINESS 04/23/2018 ELEONORA, 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 Ot E78.5 HYPERLIPIDEMIA, UNSPECIFIED 04/23/2018 PERLAMA, 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 Ot I25.9 CHRONIC ISCHEMIC HEART DISEASE, UNSPECIF 04/23/2018 ETELVINA LEONARD 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 Ot 414.00 CORON ATHEROSCLER NOS TYPE VESSEL, NATIV 04/23/2018 ETELVINA LEONARD INSIDE CONTRACTOR SALES Ot 780.2 SYNCOPE AND COLLAPSE 04/23/2018 ETELVINA LEONARD INSIDE CONTRACTOR SALES Ot V45.82 PERCUTANEOUS TRANSLUM CORON ANGIOPLASTY 04/23/2018 KYLAH CREWS INSIDE CONTRACTOR SALES Ot 272.4 HYPERLIPIDEMIA NEC/NOS 04/23/2018 BAIKYLAH ABAD 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 Ot 276.9 ELECTROLYT/FLUID DIS NEC 04/23/2018 BAIKYLAH ABAD 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 Ot 401.9 HYPERTENSION NOS 04/23/2018 BAIKYLAH ABAD INSIDE CONTRACTOR SALES Ot 414.00 CORON ATHEROSCLER NOS TYPE VESSEL, [...] 530.81 ESOPHAGEAL REFLUX 04/23/2018 PERLAJENNIFFER KYLAH Maxine INSIDE CONTRACTOR SALES Ot I71.4 ABDOMINAL AORTIC ANEURYSM, WITHOUT RUPTU [...] CCDS Ot I25.10 ATHSCL HEART DISEASE OF [place] CORONARY 04/23/2018 ADELFO W[place] INSIDE CONTRACTOR SALES Ot I71.4 ABDOMINAL AORTIC ANEURYSM, WITHOUT RUPTU 04/23/2018 BILL CLEMENTE DO Ot Z12.31 ENCNTR SCREEN MAMMOGRAM FOR MALIGNANT NE 04/23/2018 BILL CLEMENTE DO Ot R92.8 OTH ABN AND INCONCLUSIVE FINDINGS ON DX 04/23/2018 KOFI OLVERA FACC, BRADLY FACP CCDS Ot E11.9 TYPE 2 DIABETES MELLITUS WITHOUT COMPLIC 04/23/2018 KOFI OLVERA FACC, ALI FACP CCDS Ot I10 ESSENTIAL (PRIMARY) HYPERTENSION 04/23/2018 KOIF OLVERA FACC, ALI FACP CCDS Ot I25.10 ATHSCL HEART DISEASE OF [place] CORONARY 04/23/2018 KOFI OLVERA FACC, ALI FACP [...] CCDS Ot I25.10 ATHSCL HEART DISEASE OF [place] CORONARY 04/23/2018 KOFI OLVERA FACC, ALI FACP [...] CCDS Ot I25.10 ATHSCL HEART DISEASE OF [place] CORONARY 04/23/2018 KOFI OLVERA FACC, ALI FACP CCDS Ot I25.5 ISCHEMIC CARDIOMYOPATHY 04/23/2018 KOFI OLVERA FACC, ALI FACP CCDS Ot I73.9 PERIPHERAL VASCULAR DISEASE, UNSPECIFIED 04/23/2018 KOFI OLVERA FACC, ALI FACP CCDS Ot J43.8 OTHER EMPHYSEMA 04/23/2018 KOFI OLVERA FACC, ALI FACP CCDS Ot R06.02 SHORTNESS OF BREATH 04/23/2018 KOFI OLVERA FACC, ALI FACP CCDS Ot Z72.0 TOBACCO USE 04/23/2018 BAIKYLAH ABAD 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 Ot I25.5 ISCHEMIC CARDIOMYOPATHY 04/23/2018 KOFI OLVERA FACC, ALI FACP CCDS Ot E11.9 TYPE 2 DIABETES MELLITUS WITHOUT COMPLIC 04/23/2018 KOFI OLVERA FACC, ALI FACP CCDS Ot E78.4 OTHER HYPERLIPIDEMIA 04/23/2018 KOFI OLVERA FACC, ALI FACP CCDS Ot I25.10 ATHSCL HEART DISEASE OF [place] CORONARY 04/23/2018 KOFI OLVERA FACC, ALI FACP [...] I10 ESSENTIAL (PRIMARY) HYPERTENSION 04/23/2018 [facility] I25.10 ATHSCL HEART DISEASE OF [place] CORONARY 04/23/2018 KOFI OLVERA FACC, ALI FACP CCDS Ot I65.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 AND STENOSIS OF BILATERAL CALVERT 04/23/2018 [facility] CCDS Ot I71.4 ABDOMINAL AORTIC ANEURYSM, WITHOUT RUPTU 04/23/2018 KOFI OLVERA FACC, ALI FACP CCDS Ot R07.89 OTHER CHEST PAIN 04/23/2018 [facility] CCDS Ot R91.8 OTHER NONSPECIFIC ABNORMAL FINDING OF [place] 04/23/2018 KOFI HERNÁNDEZC, ALI FACP CCDS Ot Z72.0 TOBACCO USE 04/23/2018 KOFI OLVERA FAC, ALI FACP CCDS Ot Z95.828 PRESENCE OF OTHER VASCULAR IMPLANTS AND 04/25/2018 JESSY PANDEY PLATFORM CONSULTANT Ot R06.83 SNORING 04/25/2018 JESSY PANDEY PLATFORM CONSULTANT Ot R09.02 HYPOXEMIA 04/28/2018 JESSY PANDEY PLATFORM CONSULTANT Ot R06.83 SNORING 04/28/2018 JESSY PANDEY PLATFORM CONSULTANT Ot R09.02 HYPOXEMIA 05/14/2018 THOMPSON QURESHI APRN Ot E11.9 TYPE 2 DIABETES MELLITUS WITHOUT COMPLIC 05/14/2018 THOMPSON QURESHI APRN Ot E78.00 PURE HYPERCHOLESTEROLEMIA, UNSPECIFIED 05/14/2018 THOMPSON QURESHI APRN Ot F32.9 MAJOR DEPRESSIVE DISORDER, SINGLE EPISOD 05/14/2018 THOMPSON QURESHI APRN Ot F41.9 ANXIETY DISORDER, UNSPECIFIED 05/14/2018 THOMPSON QURESHI APRN Ot G43.909 MIGRAINE, UNSP, NOT INTRACTABLE, WITHOUT 05/14/2018 THOMPSON QURESHI APRN Ot I10 ESSENTIAL (PRIMARY) HYPERTENSION 05/14/2018 THOMPSON QURESHI APRN Ot I25.10 ATHSCL HEART DISEASE OF [place] CORONARY 05/14/2018 THOMPSON QURESHI APRN Ot J43.9 EMPHYSEMA, UNSPECIFIED 05/14/2018 THOMPSON QURESHI APRN Ot K21.9 GASTRO-ESOPHAGEAL REFLUX DISEASE WITHOUT 05/14/2018 THOMPSON QURESHI APRN Ot M25.571 PAIN IN RIGHT ANKLE AND JOINTS OF RIGHT 05/14/2018 THOMPSON QURESHI APRN Ot S96.911A STRAIN OF UNSP MSL/TND AT ANK/FT LEVEL, 05/14/2018 THOMPSON QURESHI APRN Ot W18.30XA FALL ON SAME LEVEL, UNSPECIFIED, INITIAL 05/14/2018 THOMPSON QURESHI APRN Ot 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.82 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 05/14/2018 THOMPSON QURESHI APRN Ot 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 05/14/2018 THOMPSON QURESHI APRN Ot Z87.81 PERSONAL HISTORY OF (HEALED) TRAUMATIC F 05/14/2018 THOMPSON QURESHI APRN Ot Z88.0 ALLERGY STATUS TO PENICILLIN 05/14/2018 THOMPSON QURESHI APRN Ot Z88.5 ALLERGY STATUS TO NARCOTIC AGENT STATUS 05/14/2018 THOMPSON QURESHI APRN Ot Z88.6 ALLERGY STATUS TO ANALGESIC AGENT STATUS 05/14/2018 THOMPSON QURESHI APRN Ot Z88.8 ALLERGY STATUS TO OTH DRUG/MEDS/BIOL SUB 05/14/2018 THOMPSON QURESHI APRN Ot Z90.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 BOTH CERVIX AND UTER 05/14/2018 THOMPSON QURESHI APRN Ot Z95.5 PRESENCE OF CORONARY ANGIOPLASTY IMPLANT 05/17/2018 THOMPSON QURESHI APRN Ot E11.9 TYPE 2 DIABETES MELLITUS WITHOUT COMPLIC 05/17/2018 THOMPSON QURESHI APRN Ot E78.00 PURE HYPERCHOLESTEROLEMIA, UNSPECIFIED 05/17/2018 THOMPSON QURESHI APRN Ot F32.9 MAJOR DEPRESSIVE DISORDER, SINGLE EPISOD 05/17/2018 THOMPSON QURESHI APRN Ot F41.9 ANXIETY DISORDER, UNSPECIFIED 05/17/2018 THOMPSON QURESHI APRN Ot G43.909 MIGRAINE, UNSP, NOT INTRACTABLE, WITHOUT 05/17/2018 THOMPSON QURESHI APRN Ot I10 ESSENTIAL (PRIMARY) HYPERTENSION 05/17/2018 THOMPSON QURESHI APRN Ot I25.10 ATHSCL HEART DISEASE OF [place] CORONARY 05/17/2018 THOMPSON QURESHI APRN Ot J43.9 EMPHYSEMA, UNSPECIFIED 05/17/2018 THOMPSON QURESHI APRN Ot K21.9 GASTRO-ESOPHAGEAL REFLUX DISEASE WITHOUT 05/17/2018 THOMPSON QURESHI APRN Ot M25.571 PAIN IN RIGHT ANKLE AND JOINTS OF RIGHT 05/17/2018 THOMPSON QURESHI APRN Ot S96.911A STRAIN OF UNSP MSL/TND AT ANK/FT LEVEL, 05/17/2018 THOMPSON QURESHI APRN Ot W18.30XA FALL ON SAME LEVEL, UNSPECIFIED, INITIAL 05/17/2018 THOMPSON QURESHI APRN Ot Z79.82 BRANCH 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 05/17/2018 THOMPSON QURESHI APRN Ot Z79.84 [facility] (CURRENT) USE OF ORAL HYPOGLYC 05/17/2018 THOMPSON QURESHI APRN Ot Z87.81 PERSONAL HISTORY OF (HEALED) TRAUMATIC F 05/17/2018 THOMPSON QURESHI APRN Ot Z88.0 ALLERGY STATUS TO PENICILLIN 05/17/2018 THOMPSON QURESHI APRN Ot Z88.5 ALLERGY STATUS TO NARCOTIC AGENT STATUS 05/17/2018 THOMPSON QURESHI APRN Ot Z88.6 ALLERGY STATUS TO ANALGESIC AGENT STATUS 05/17/2018 THOMPSON QURESHI APRN Ot Z88.8 ALLERGY STATUS TO OTH DRUG/MEDS/BIOL SUB 05/17/2018 THOMPSON QURESHI APRN Ot Z90.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 BOTH CERVIX AND UTER 05/17/2018 THOMPSON QURESHI APRN Ot Z95.5 PRESENCE OF CORONARY ANGIOPLASTY IMPLANT 05/28/2018 JESSY PANDEY APRN Ot J44.9 CHRONIC OBSTRUCTIVE PULMONARY DISEASE, U 06/08/2018 JESSY PANDEY APRN Ot J44.9 CHRONIC OBSTRUCTIVE PULMONARY DISEASE, U 06/10/2018 JESSY PANDEY APRN Ot J44.9 CHRONIC OBSTRUCTIVE PULMONARY DISEASE, U 06/10/2018 JESSY PANDEY APRN Ot R06.02 SHORTNESS OF BREATH 06/24/2018 JESSY PANDEY APRN Ot J44.9 CHRONIC OBSTRUCTIVE PULMONARY DISEASE, U 06/24/2018 JESSY PANDEY APRN Ot R06.02 SHORTNESS OF BREATH 06/29/2018 JESSY PANDEY APRN Ot J44.9 CHRONIC OBSTRUCTIVE PULMONARY DISEASE, U 06/29/2018 JESSY PANDEY APRN Ot R06.02 SHORTNESS OF BREATH 07/23/2018 LEONEL ORTIZ MD Ot Z01.818 ENCOUNTER FOR OTHER PREPROCEDURAL EXAMIN 07/26/2018 LEONEL ORTIZ MD, Ot Z01.818 ENCOUNTER FOR OTHER PREPROCEDURAL EXAMIN 07/30/2018 KYLAH CREWS INSIDE [employer]OR SALES Ot I25.5 ISCHEMIC CARDIOMYOPATHY 07/30/2018 KYLAH CREWS Ot I25.5 ISCHEMIC CARDIOMYOPATHY 07/30/2018 JESSY PANDEY APRN Ot J44.9 CHRONIC OBSTRUCTIVE PULMONARY DISEASE, U 07/30/2018 LEONEL ORTIZ MD Ot E11.40 TYPE 2 DIABETES MELLITUS WITH DIABETIC N 07/30/2018 LEONEL ORTIZ MD Ot I10 ESSENTIAL (PRIMARY) HYPERTENSION 07/30/2018 LEONEL ORTIZ MD Ot I25.10 ATHSCL HEART DISEASE OF [place] CORONARY 07/30/2018 LEONEL ORTIZ MD, Ot J44.9 CHRONIC OBSTRUCTIVE PULMONARY DISEASE, U 07/30/2018 LEONEL ORTIZ MD Ot J45.909 UNSPECIFIED ASTHMA, UNCOMPLICATED 07/30/2018 LEONEL ORTIZ MD, Ot K21.9 GASTRO-ESOPHAGEAL REFLUX DISEASE WITHOUT 07/30/2018 LEONEL ORTIZ MD, Ot 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/O PERFORATION OR AB 07/30/2018 LEONEL ORTIZ MD, Ot K62.5 HEMORRHAGE OF ANUS AND RECTUM 07/30/2018 LEONEL ORTIZ MD, Ot K64.0 FIRST DEGREE HEMORRHOIDS 07/30/2018 LEONEL ORTIZ MD Ot 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 07/30/2018 LEONEL ORTIZ MD, Ot Z80.0 FAMILY HISTORY OF MALIGNANT NEOPLASM OF 07/30/2018 LEONEL ORTIZ MD, Ot Z87.891 PERSONAL HISTORY OF NICOTINE DEPENDENCE 08/01/2018 JESSY PANDEY APRN Ot J44.9 CHRONIC OBSTRUCTIVE PULMONARY DISEASE, U 08/01/2018 JESSY PANDEY APRN Ot R06.02 SHORTNESS OF BREATH 08/04/2018 LEONEL ORTIZ MD, Ot E11.40 TYPE 2 DIABETES MELLITUS WITH DIABETIC N 08/04/2018 LEONEL ORTIZ MD Ot I10 ESSENTIAL (PRIMARY) HYPERTENSION 08/04/2018 LEONEL ORTIZ MD Ot I25.10 ATHSCL HEART DISEASE OF [place] CORONARY 08/04/2018 LEONEL ORTIZ MD, Ot J44.9 CHRONIC OBSTRUCTIVE PULMONARY DISEASE, U 08/04/2018 LEONEL ORTIZ MD, Ot J45.909 UNSPECIFIED ASTHMA, UNCOMPLICATED 08/04/2018 LEONEL ORTIZ MD, Ot K21.9 GASTRO-ESOPHAGEAL REFLUX DISEASE WITHOUT 08/04/2018 LEONEL ORTZI MD, Ot 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/O PERFORATION OR AB 08/04/2018 LEONEL ORTIZ MD Ot K62.5 HEMORRHAGE OF ANUS AND RECTUM 08/04/2018 LEONEL ORTIZ MD, Ot K64.0 FIRST DEGREE HEMORRHOIDS 08/04/2018 LEONEL ORTIZ MD, Ot 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 08/04/2018 LEONEL ORTIZ MD, Ot Z80.0 FAMILY HISTORY OF MALIGNANT NEOPLASM OF 08/04/2018 LEONEL ORTIZ MD, Ot Z87.891 PERSONAL HISTORY OF NICOTINE DEPENDENCE 08/04/2018 JESSY PANDEY APRN Ot J44.9 CHRONIC OBSTRUCTIVE PULMONARY DISEASE, U 08/04/2018 JESSY PANDEY APRN Ot R06.02 SHORTNESS OF BREATH 08/05/2018 LEONEL ORTIZ MD, Ot E11.40 TYPE 2 DIABETES MELLITUS WITH DIABETIC N 08/05/2018 LEONEL ORTIZ MD Ot I10 ESSENTIAL (PRIMARY) HYPERTENSION 08/05/2018 LEONEL ORTIZ MD Ot I25.10 ATHSCL HEART DISEASE OF [place] CORONARY 08/05/2018 LEONEL ORTIZ MD, Ot J44.9 CHRONIC OBSTRUCTIVE PULMONARY DISEASE, U 08/05/2018 LEONEL ORTIZ MD, Ot J45.909 UNSPECIFIED ASTHMA, UNCOMPLICATED 08/05/2018 LEONEL ORTIZ MD, Ot K21.9 GASTRO-ESOPHAGEAL REFLUX DISEASE WITHOUT 08/05/2018 LEONEL ORTIZ MD, Ot 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/O PERFORATION OR AB 08/05/2018 LEONEL ORTIZ MD, Ot K62.5 HEMORRHAGE OF ANUS AND RECTUM 08/05/2018 LEONEL ORTIZ MD, Ot K64.0 FIRST DEGREE HEMORRHOIDS 08/05/2018 LEONEL ORTIZ MD, Ot 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 08/05/2018 LEONEL ORTIZ MD, Ot Z80.0 FAMILY HISTORY OF MALIGNANT NEOPLASM OF 08/05/2018 LEONEL ORTIZ MD, Ot Z87.891 PERSONAL HISTORY OF NICOTINE DEPENDENCE 08/13/2018 LEONEL ORTIZ MD, Ot E11.40 TYPE 2 DIABETES MELLITUS WITH DIABETIC N 08/13/2018 LEONEL ORTIZ MD, Ot I10 ESSENTIAL (PRIMARY) HYPERTENSION 08/13/2018 LEONEL ORTIZ MD, Ot I25.10 ATHSCL HEART DISEASE OF [place] CORONARY 08/13/2018 LEONEL ORTIZ MD, Ot J44.9 CHRONIC OBSTRUCTIVE PULMONARY DISEASE, U 08/13/2018 LEONEL ORTIZ MD, Ot J45.909 UNSPECIFIED ASTHMA, UNCOMPLICATED 08/13/2018 LEONEL ORTIZ MD, Ot K21.9 GASTRO-ESOPHAGEAL REFLUX DISEASE WITHOUT 08/13/2018 LEONEL ORTIZ MD, Ot 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/O PERFORATION OR AB 08/13/2018 LEONEL ORTIZ MD, Ot K62.5 HEMORRHAGE OF ANUS AND RECTUM 08/13/2018 LEONEL ORTIZ MD, Ot K64.0 FIRST DEGREE HEMORRHOIDS 08/13/2018 LEONEL ORTIZ MD, Ot Z79.84 [facility] (CURRENT) USE OF ORAL HYPOGLYC 08/13/2018 LEONEL ORTIZ MD, Ot Z80.0 FAMILY HISTORY OF MALIGNANT NEOPLASM OF 08/13/2018 LEONEL ORTIZ MD, Ot Z87.891 PERSONAL HISTORY OF NICOTINE DEPENDENCE Procedures Code Description Performed By Performed On 59.79 URIN INCONTIN REPAIR NEC 01/28/2012 79.36 OP RED-INT FIX TIB/FIBUL 06/17/2012 68808 HEMOCCULT 09/07/2012 04282 PAP SMEAR 09/13/2012 88689 ROUTINE VENIPUNCTURE 10/11/2012 21268 A1C (IN-HOUSE) 10/11/2012 72743 URINE DRUG SCREEN (IN-HOUSE ) 10/11/2012 27489 MICRO ALBUMIN-IN HOUSE 10/11/2012 76954 CMP 10/11/2012 33049 LIPID PANEL 10/11/2012 4565869 GFR CALC (RESULT ONLY) 10/11/2012 27272 MICROALBUMIN 10/12/2012 38052 URINE DRUG SCREEN (IN-HOUSE ) 10/22/2012 17571 MAMMOGRAM, SCREENING 10/24/2012 Q0091 PAP SMEAR OBTAIN SMEAR 10/24/2012 23738 ROUTINE VENIPUNCTURE 12/02/2012 90138 URINE DRUG SCREEN (IN-HOUSE ) 12/02/2012 92261 URINE PCP GC/MS 12/03/2012 71584 TSH 12/04/2012 03273 ROUTINE VENIPUNCTURE 02/08/2013 99503 A1C (IN-HOUSE) 02/08/2013 93624 URINE DRUG SCREEN (IN-HOUSE ) 02/08/2013 09023 MICRO ALBUMIN-IN HOUSE 02/08/2013 00512 CMP 02/08/2013 8030090 GFR CALC (RESULT ONLY) 02/08/2013 48401 CBC 02/08/2013 49791 MICROALBUMIN 02/08/2013 Vivian Cha 02/11/2013 71269 DEBRIDE NAIL >6 06/03/2013 93274 ROUTINE VENIPUNCTURE 08/10/2013 G0008 FLU ADMINISTRATION ( MEDICARE ONLY) 08/10/2013 47495 URINE DRUG SCREEN (IN-HOUSE ) 08/10/2013 18159 CBC 08/10/2013 26942 CMP 08/10/2013 19502 LIPID PANEL 08/10/2013 9417574 GFR CALC (RESULT ONLY) 08/10/2013 70346 TSH 08/11/2013 87184 A1C (RML) 08/11/2013 20451 UA W/ CULTURE IF INDICATED 08/17/2013 34768 CULTURE URINE 08/18/2013 33056 DEBRIDE NAIL >6 09/02/2013 47859 DEBRIDE NAIL >6 12/09/2013 09896 CMP 2014 64470 MAGNESIUM 2014 06105 A1C (IN-HOUSE) 2014 28643 ROUTINE VENIPUNCTURE 02/27/2014 2619233 GFR CALC (RESULT ONLY) 02/27/2014 90409 BMP 02/27/2014 76562 DEBRIDE NAIL >6 03/10/2014 36040 URINE DRUG SCREEN (IN-HOUSE ) 04/03/2014 25559 ROUTINE VENIPUNCTURE 05/22/2014 GENERAL JEFERSON VALLE 05/22/2014 02617 A1C (IN-HOUSE) 05/22/2014 2004856 GFR CALC (RESULT ONLY) 05/22/2014 02714 CMP 05/22/2014 35550 TSH 05/22/2014 General Jeferson Valle 06/20/2014 25375 ROUTINE VENIPUNCTURE 08/28/2014 62628 OXIMETRY 08/28/2014 68936 A1C (IN-HOUSE) 08/28/2014 53571 BMP 08/28/2014 23539 TSH 08/28/2014 82135 OXIMETRY 11/13/2014 44874 ROUTINE VENIPUNCTURE 11/27/2014 68489 XRAY CHEST 2 VIEW 11/27/2014 04090 CMP 11/27/2014 75497 TSH 11/27/2014 58154 CBC 11/27/2014 28838 MYCOPLASMA ANTIBODY 11/27/2014 68605 XRAY KNEE LEFT, 1 OR 2 VIEWS 12/11/2014 37960 XRAY ANKLE R, 2 VIEWS 12/11/2014 71264 ROUTINE VENIPUNCTURE 02/19/2015 89075 ECHO 2D 02/19/2015 52058 AMERITOX 02/19/2015 CARDIOLOG BRADLY KIRBY 02/19/2015 55251 MAGNESIUM 02/19/2015 99399 CBC 02/19/2015 8485717 GFR CALC (RESULT ONLY) 02/19/2015 30865 CMP 02/19/2015 2931575 SPTYPE 02/19/2015 85768 TSH 02/19/2015 66637 ROUTINE VENIPUNCTURE 02/27/2015 76460 CMP 02/27/2015 3095337 GFR CALC (RESULT ONLY) 02/27/2015 Results Test Result Range [facility] - 01/25/18 11:55 GLUCOSE 92 mg/dL 65-99 UREA NITROGEN (BUN) 20 mg/dL 7-25 CREATININE 0.86 mg/dL 0.50-1.05 eGFR NON-AFR. EMIRATI 77 mL/min/1.73m2 > OR=60 eGFR 89 mL/min/1.73m2 [...] culture - 02/21/18 18:11 Bacterial urine culture [id number] NRG COLONY COUNT >100,000/ML NRG Automated blood [...] Staphylococcus aureus (MRSA) screening culture NEG NRG CBC - 07/08/18 15:59 WHITE BLOOD CELL COUNT 9.8 Thousand/uL 3.8-10.8 RED BLOOD CELL COUNT 4.84 Million/uL 3.80-5.10 HEMOGLOBIN 10.6 g/dL 11.7-15.5 HEMATOCRIT 35.5 % 35.0-45.0 MCV 73.3 fL 80.0-100.0 MCH 21.9 pg 27.0-33.0 MCHC 29.9 g/dL 32.0-36.0 RDW 18.6 % 11.0-15.0 PLATELET COUNT 324 Thousand/uL 140-400 MPV 11.9 fL 7.5-12.5 ABSOLUTE NEUTROPHILS 4890 cells/uL 3054-7761 ABSOLUTE LYMPHOCYTES 3685 cells/uL 850-3900 ABSOLUTE MONOCYTES 970 cells/uL 200-950 ABSOLUTE EOSINOPHILS 206 cells/uL 15-500 ABSOLUTE BASOPHILS 49 cells/uL 0-200 NEUTROPHILS 49.9 % NRG LYMPHOCYTES 37.6 % NRG MONOCYTES 9.9 % NRG EOSINOPHILS 2.1 % NRG BASOPHILS 0.5 % NRG ANEMIA PANEL - 07/13/18 13:50 IRON, TOTAL 35 mcg/dL 45-160 FERRITIN 24 ng/mL 10-232 IRON BINDING CAPACITY 459 mcg/dL (calc) 250-450 % SATURATION 8 % (calc) 11-50 Encounters ACCT No. Visit Date/Time Discharge Status Pt. Type Provider Facility Loc./Unit Complaint [id number] 02/27/2015 09:51:00 02/27/2015 23:59:59 CLS Outpatient MADL PLATFORM CONSULTANT, ETELVINA L [id number] 02/19/2015 08:48:00 02/19/2015 23:59:59 CLS Outpatient MADL PLATFORM CONSULTANT, ETELVINA L [id number] 02/09/2015 08:56:00 02/09/2015 23:59:59 CLS Outpatient NOEMY DOLADONNA Adriana [id number] 12/11/2014 14:31:00 12/11/2014 23:59:59 CLS Outpatient MADL PLATFORM CONSULTANT, ETELVINA L [id number] 12/11/2014 14:31:00 12/11/2014 23:59:59 CLS Outpatient LADONNA SALGUERO DO Adriana [id number] 11/27/2014 13:24:00 11/27/2014 23:59:59 CLS Outpatient LADONNA SALGUERO DO Adriana [id number] 11/27/2014 13:24:00 11/27/2014 23:59:59 CLS Outpatient MADL PLATFORM CONSULTANT, ETELVINA L [id number] 11/13/2014 09:52:00 11/13/2014 23:59:59 CLS Outpatient MADL PLATFORM CONSULTANT, ETELVINA L [id number] 10/23/2014 13:14:00 10/23/2014 23:59:59 CLS Outpatient MADL PLATFORM CONSULTANT, ETELVINA L [id number] 09/25/2014 13:26:00 09/25/2014 23:59:59 CLS Outpatient MADL PLATFORM CONSULTANT, ETELVINA L [id number] 08/28/2014 09:22:00 08/28/2014 23:59:59 CLS Outpatient MADL PLATFORM CONSULTANT, ETELVINA L [id number] 08/28/2014 09:22:00 08/28/2014 23:59:59 CLS Outpatient MADL PLATFORM CONSULTANT, ETELVINA L [id number] 07/24/2014 09:55:00 07/24/2014 23:59:59 CLS Outpatient SALGUERO DOLADONNA [id number] 06/19/2014 09:11:00 06/19/2014 23:59:59 CLS Outpatient SALGUERO DOLADONNA [id number] 05/22/2014 13:40:00 05/22/2014 23:59:59 CLS Outpatient MADL PLATFORM CONSULTANTETELVINA L [id number] 05/22/2014 13:40:00 05/22/2014 23:59:59 CLS Outpatient MADL PLATFORM CONSULTANT, ETELVINA L [id number] 04/03/2014 14:31:00 04/03/2014 23:59:59 CLS Outpatient MADL PLATFORM CONSULTANT, ETELVINA L [id number] 04/03/2014 14:31:00 04/03/2014 23:59:59 CLS Outpatient SALGUERO DOLADONNA [id number] 03/10/2014 08:26:00 03/10/2014 23:59:59 CLS Outpatient SALGUERO DOLADONNA [id number] 03/10/2014 08:26:00 03/10/2014 23:59:59 CLS Outpatient SALGUERO DOLADONNA [id number] 02/27/2014 14:59:00 02/27/2014 23:59:59 CLS Outpatient SALGUERO DOLADONNA [id number] 2014 09:28:00 2014 23:59:59 CLS Outpatient BYRON BOSS MD [id number] 2014 09:28:00 2014 23:59:59 CLS Outpatient BYRON BOSS MD [id number] 12/09/2013 07:39:00 12/09/2013 23:59:59 CLS Outpatient SALGUERO DOLADONNA Adriana [id number] 09/22/2013 09:11:00 09/22/2013 23:59:59 CLS Outpatient BYRON BOSS MD [id number] 09/02/2013 07:40:00 09/02/2013 23:59:59 CLS Outpatient SALGUERO DO LADONNA Wright [id number] 08/25/2013 15:49:00 08/25/2013 23:59:59 CLS Outpatient BYRON BOSS MD [id number] 08/17/2013 13:19:00 08/17/2013 23:59:59 CLS Outpatient BYRON BOSS MD [id number] 02/08/2013 10:18:00 02/08/2013 23:59:59 CLS Outpatient BYRON BOSS MD [id number] 12/07/2012 08:34:00 12/07/2012 23:59:59 CLS Outpatient ROMELIA FISCHER MD [id number] 12/02/2012 14:59:00 12/02/2012 23:59:59 CLS Outpatient LAURIE MORA APRN [id number] 11/01/2012 08:50:00 11/01/2012 23:59:59 CLS Outpatient [id number] 10/11/2012 08:39:00 10/11/2012 23:59:59 CLS Outpatient LAURIE MORA APRN [id number] 09/07/2012 09:19:00 09/07/2012 23:59:59 CLS Outpatient LAURIE MORA APRN [id number] 08/10/2013 14:39:00 Document Registration [id number] 06/03/2013 08:05:00 Document Registration [id number] 06/03/2013 08:05:00 Document Registration [id number] 02/08/2013 10:18:00 Document Registration [id number] 11/01/2018 14:40:00 11/01/2018 23:59:59 CLS Outpatient KING FISHMAN MD [facility] [id number] 07/13/2018 13:20:00 Document Registration [id number] 07/08/2018 15:20:00 Document Registration [id number] 2018 11:00:00 Document Registration [id number] 08/02/2018 08:15:00 08/02/2018 23:59:59 CLS Preadmit JESSY PANDEY APRN [facility] [address] PULM COPD,SOB [id number] 05/03/2018 08:12:00 08/01/2018 00:01:00 DIS Outpatient JESSY PANDEY APRN [facility] [address] PULM COPD,SOB [id number] 07/30/2018 11:45:00 07/30/2018 14:55:00 DIS Outpatient LEONEL ORTIZ MD [facility] [address] ENDO +BLOOD IN STOOL/FAMILY HX COLON CA [id number] 07/23/2018 05:49:00 07/23/2018 11:04:00 DIS Outpatient LEONEL ORTIZ MD [facility] [address] PREOP COLONOSCOPY [id number] 05/27/2018 10:09:00 05/27/2018 23:59:59 CLS Outpatient JESSY PANDEY PLATFORM CONSULTANT [facility] [address] RAD COPD [id number] 05/14/2018 15:04:00 05/14/2018 16:20:00 DIS Emergency THOMPSON QURESHI PLATFORM CONSULTANT [facility] [address] ER R ANKLE PAIN/COLD [id number] 04/24/2018 20:37:00 04/25/2018 06:48:00 DIS Outpatient JESSY PANDEY PLATFORM CONSULTANT [facility] [address] SLEEP COPD,SOB [id number] 03/31/2018 11:36:00 03/31/2018 23:59:59 CLS Outpatient KOFI OLVERA FACC, ALI FACP CCDS [facility] [address] RAD R07.89 CHEST PAIN [id number] 03/09/2018 06:49:00 03/09/2018 12:30:00 DIS Outpatient KOFI OLVERA FACC, ALI FACP CCDS [facility] [address] CATH CAD [id number] 03/03/2018 09:01:00 03/03/2018 11:50:00 DIS Outpatient LEONEL ORTIZ MD [facility] [address] ENDO DYSPHAGIA [id number] 02/26/2018 05:52:00 02/26/2018 12:49:00 DIS Outpatient LEONEL ORTIZ MD [facility] [address] PREOP EGD [id number] 02/21/2018 16:36:00 02/21/2018 19:07:00 DIS Emergency FELICIA ENCINAS DO K [facility] [address] ER WEAKNESS [id number] 02/15/2018 10:22:00 02/15/2018 15:46:00 DIS Emergency MARLA EVERETT MD [facility] [address] ER CP [id number] 01/07/2018 16:24:00 01/07/2018 19:40:00 DIS Emergency HARDEEP DORANTES [facility] [address] ER FALL WITH BIG BUMP ON L LEG [id number] 12/29/2017 12:20:00 12/29/2017 23:59:59 CLS Outpatient KOFI OLVERA FACC, ALI FACP CCDS [facility] [address] RAD I25.10 CAD [id number] 12/21/2017 13:54:00 12/21/2017 23:59:59 CLS Outpatient KYLAH CREWS INSIDE CONTRACTOR SALES [facility] [address] CARD I25.5 CARDIOMYOPATHY [id number] 12/02/2017 08:24:00 12/02/2017 23:59:59 CLS Outpatient KOFI OLVERA FACC, ALI FACP CCDS [facility] [address] RT R06.02 SOB [id number] 12/01/2017 08:04:00 12/01/2017 23:59:59 CLS Outpatient KOFI OLVERA FACTj, ALI FACP CCDS [facility] [address] CARD R06.02 SOB [id number] 11/26/2017 11:24:00 11/26/2017 23:59:59 CLS Outpatient KOFI OLVERA FACC, ALI FACP CCDS [facility] [address] CARD R06.02 SOB [id number] 11/09/2017 12:27:00 11/09/2017 23:59:59 CLS Outpatient BILL CLEMENTE DO [facility] [address] RAD ABNORMAL MAMMO [id number] 10/27/2017 12:24:00 10/27/2017 23:59:59 CLS Outpatient BILL CLEMENTE DO [facility] [address] RAD SCREENING [id number] 12/31/2016 10:19:00 12/31/2016 23:59:59 CLS Outpatient ADELFO WASHINGTON INSIDE CONTRACTOR SALES [facility] [address] RAD AAA [id number] 04/07/2016 08:25:00 04/07/2016 11:40:00 DIS Outpatient JEFERSON SALDANA MD [facility] [address] SDC DYSKINESIA [id number] 04/02/2016 05:42:00 04/02/2016 11:05:00 DIS Outpatient JEFERSNO SALDANA MD [facility] [address] PREOP DYSKINSIA [id number] 03/11/2016 11:17:00 03/11/2016 23:59:59 CLS Outpatient KOFI OLVERA FACC, BRADLY FACJanneth CCDS [facility] [address] LAB CAD, HYPERLIPIDEMIA [id number] 03/09/2016 16:47:00 03/09/2016 19:30:00 DIS Emergency KARLOS OLVERA, AMRLA Ackerman [facility] [address] ER FEVER/DIARRHEA [id number] 03/05/2016 19:11:00 03/05/2016 21:37:00 DIS Emergency INES REYNOSO MD [facility] [address] ER EYE SWELLING/ANKLE PAIN FROM FALL [id number] 12/18/2015 08:53:00 12/18/2015 23:59:59 CLS Outpatient KYLAH CREWS [facility] [address] RAD ABDOMEN AORTIC ECTASIA [id number] 12/09/2015 10:18:00 12/09/2015 12:47:00 DIS Emergency BETTINA ROMAN MD [facility] [address] ER R EYE SWELLING/PAIN [id number] 12/01/2015 13:15:00 12/01/2015 15:12:00 DIS Emergency MARLA EVERETT MD [facility] [address] ER R EYE SWELLING [id number] 10/07/2015 16:35:00 10/07/2015 18:15:00 DIS Emergency BETTINA ROMAN MD [facility] [address] ER POST OP/BLEEDING [id number] 10/04/2015 10:45:00 10/04/2015 23:59:59 CLS Outpatient BILL CLEMENTE DO [facility] [address] LAB RESISTANT GUINFECTIONS [id number] 09/13/2015 10:52:00 09/13/2015 23:59:59 CLS Outpatient KYLAH CREWS [facility] LAB HLP,CAD [id number] 07/30/2015 15:05:00 07/30/2015 16:25:00 DIS Emergency HARDEEP DORANTES [facility] [address] ER BACK,HIP PAIN [id number] 07/16/2015 17:17:00 07/16/2015 18:20:00 DIS Emergency THOMPSON QURESHI APRN [facility] [address] ER L ARM, L KNEE INJ [id number] 07/09/2015 13:52:00 07/09/2015 23:59:59 CLS Outpatient BILL CLEMENTE DO [facility] [address] RAD TRAUMA L 3RD TOE W/ DIABETES [id number] 06/11/2015 09:00:00 06/11/2015 23:59:59 CLS Outpatient KOFI OLVERA FACC, BRADLY NIX CCDS [facility] [address] RAD ABDOMINAL AORTIAL ECTASIA [id number] 04/10/2015 10:25:00 04/10/2015 23:59:59 CLS Outpatient BILL CLEMENTE DO [facility] [address] RAD R ANKLE PAIN, HX OF FX SURGERY [id number] 03/26/2015 11:17:00 03/26/2015 23:59:59 CLS Outpatient BILL CLEMENTE DO [facility] [address] RAD BACK PAIN, [id number] 03/16/2015 10:23:00 03/16/2015 23:59:59 CLS Outpatient BILL CLEMENTE DO [facility] [address] LAB DM II,CAD,HLP [id number] 03/16/2015 10:20:00 03/16/2015 23:59:59 CLS Outpatient KYLAH CREWSP [facility] [address] LAB ELECTROLYTE DEPLETION ,CAD,HTN,HLP [id number] 03/01/2015 07:26:00 03/01/2015 23:59:59 CLS Outpatient ETELVINA LEONARDP [facility] [address] CARD NEAR SYNCOPE EPISODE CAD [id number] 02/19/2015 16:09:00 02/20/2015 13:40:00 DIS Inpatient CAROLYN OLVERA, QUE Bowser [facility] [address] 4TH ORTHOSTATIC HYPOTENSION; ACUTE RENAL FAILURE [id number] 12/30/2014 11:12:00 12/30/2014 14:54:00 DIS Emergency INES REYNOSO MD [facility] [address] ER SOA,DIZZINESS [id number] 11/03/2014 08:58:00 11/03/2014 10:36:00 DIS Emergency DANIELITO SORIANO MD [facility] [address] ER COUGH/CONGESTION [id number] 10/30/2014 14:50:00 10/30/2014 16:25:00 DIS Emergency HARDEEP DORANTES [facility] [address] ER NAUSEATED/BODYACHES/ WEAKNESS EARACHE/RINGING [id number] 10/01/2014 13:53:00 10/01/2014 14:57:00 DIS Emergency FELICIA ENCINAS DO [facility] [address] ER RECTAL BLEEDING [id number] 09/11/2014 09:46:00 09/11/2014 23:59:59 CLS Outpatient KOFI OLVERA FACC, BRADLY NIX CCDS [facility] [address] CARD ISCHEMIC CARDIO MYOPATHY,CAD [id number] 09/01/2014 10:58:00 09/01/2014 11:40:00 DIS Emergency THOMPSON QURESHI APRN [facility] [address] ER SWOLLEN EYE [id number] 08/31/2014 16:55:00 08/31/2014 18:16:00 DIS Emergency THOMPSON QURESHI APRN [facility] [address] ER NECK SWELLING [id number] 07/10/2014 09:07:00 07/10/2014 11:55:00 DIS Outpatient [facility] [id number] 07/05/2014 07:29:00 07/05/2014 23:59:59 CLS Outpatient JEFERSON SALDANA MD [facility] [address] PREOP DYSPHAGIA [id number] 06/05/2014 08:24:00 06/05/2014 11:43:00 DIS Outpatient [facility];FAMILY HISTORY [id number] 05/31/2014 07:28:00 05/31/2014 23:59:59 CLS Outpatient JEFERSON SALDANA MD [facility] [address] PREOP SCREENING;FAMILY HISTORY [id number] 05/29/2014 12:18:00 05/29/2014 23:59:59 CLS Outpatient KYLAH CREWS [facility] [address] LAB POST HEART CATH [id number] 05/23/2014 06:24:00 05/23/2014 20:30:00 DIS Outpatient KOFI OLVERA FACC, BRADLY NIX CCDS [facility] [address] CATH SHORTNESS OF BREATH CAD ABNORMAL STRESS TEST [id number] 05/08/2014 12:02:00 05/08/2014 23:59:59 CLS Outpatient KYLAH CREWS [facility] [address] CARD CAD [id number] 02/13/2014 12:30:00 02/13/2014 14:00:00 DIS Emergency THOMPSON QURESHI APRN [facility] [address] ER FALL/BACK PAIN [id number] 02/09/2014 19:30:00 02/11/2014 10:45:00 DIS Inpatient LADONNA SALGUERO DO [facility] [address] ICU ACUTE COPD EXACERBATION [id number] 2014 11:48:00 2014 23:59:59 CLS Outpatient BYRON BOSS MD [facility] [address] LAB HTN,HYPERLIPADEIA [id number] 12/12/2013 06:44:00 12/12/2013 11:43:00 DIS Outpatient PATRICIA MCDONALD MD [facility] [address] SDC PAINFUL HARDWARE RIGHT ANKLE [id number] 12/05/2013 14:33:00 12/05/2013 23:59:59 CLS Outpatient PATRICIA MCDONALD MD [facility] [address] PREOP PAINFUL HARDWARE RIGHT ANKLE [id number] 11/04/2013 12:22:00 11/04/2013 12:46:00 DIS Emergency MARLA EVERETT MD [facility] [address] ER SUTURE REMOVAL [id number] 10/31/2013 10:42:00 10/31/2013 23:59:59 CLS Outpatient KYLAH CREWSP [facility] [address] CARD CAD,HTN [id number] 10/25/2013 08:26:00 10/25/2013 23:59:59 CLS Outpatient KYLAH CREWS [facility] [address] LAB CAD,HEART VALVE DISEASE,HTN,HYPERLIPIDEMIA,COPD [id number] 10/25/2013 18:12:00 10/25/2013 20:10:00 DIS Emergency HARDEEP DORANTES [facility] [address] ER FOOT INJ [id number] 10/21/2013 06:02:00 10/22/2013 11:11:00 DIS Outpatient EDUARDO VILLEGAS MD Via [facility] INTRINSIC SPHINCTER DEFICIENCY; INCONTINENCE [id number] 10/17/2013 09:25:00 10/17/2013 23:59:59 CLS Outpatient EDUARDO VILLEGAS MD [facility] [address] PREOP INTRINSIC SPHINCTER DEFICIENCY; INCONTINENCE [id number] 08/03/2013 06:00:00 08/03/2013 09:56:00 DIS Outpatient [facility] [id number] 07/27/2013 12:35:00 07/27/2013 23:59:59 CLS Outpatient EDUARDO VILLEGAS MD [facility] [address] PREOP INCONTINENCE [id number] 06/13/2013 14:57:00 06/13/2013 23:59:59 CLS Outpatient [id number] 04/18/2013 22:12:00 04/18/2013 23:34:00 DIS Emergency FELICIA ENCINAS DO [facility] [address] ER REACTION TO MEDICATION [id number] 04/17/2013 14:11:00 04/17/2013 15:42:00 DIS Emergency MARCO A VAN MD [facility] [address] ER VOMITING BODY ACHES [id number] 03/26/2015 11:17:00 Document Registration [id number] 01/19/2013 18:23:00 Document Registration [id number] 01/01/2013 15:27:00 Document Registration [id number] 12/26/2012 14:21:00 Document Registration [id number] 11/11/2012 16:20:00 Document Registration [id number] 10/24/2012 23:40:00 Document Registration [id number] 09/19/2012 19:49:00 Document Registration [id number] 09/13/2012 10:47:00 Document Registration [id number] 09/08/2012 15:08:00 Document Registration [id number] 09/04/2012 17:10:00 Document Registration [id number] 06/12/2012 16:25:00 Document Registration [id number] 06/03/2012 10:41:00 Document Registration [id number] 04/16/2012 09:50:00 Document Registration [id number] 03/17/2012 10:58:00 Document Registration [id number] 03/08/2012 10:14:00 Document Registration [id number] 02/01/2012 18:50:00 Document Registration [id number] 01/28/2012 06:00:00 Document Registration [id number] 01/21/2012 09:31:00 Document Registration [id number] 11/11/2011 07:21:00 Document Registration [id number] 10/30/2011 08:09:00 Document Registration [id number] 10/27/2011 07:16:00 Document Registration [id number] 10/24/2011 12:36:00 Document Registration [id number] 10/19/2011 11:22:00 Document Registration [id number] 08/07/2011 10:17:00 Document Registration [id number] 07/14/2011 13:47:00 Document Registration [id number] 07/06/2011 18:30:00 Document Registration [id number] 03/19/2011 05:41:00 Document Registration [id number] 03/13/2011 12:47:00 Document Registration [id number] 02/12/2011 10:12:00 Document Registration [id number] 02/06/2011 08:14:00 Document Registration [id number] 01/22/2011 05:55:00 Document Registration [id number] 01/15/2011 10:27:00 Document Registration [id number] 11/08/2010 10:08:00 Document Registration [id number] 09/05/2010 05:48:00 Document Registration [id number] 09/04/2010 09:00:00 Document Registration [id number] 08/26/2010 07:15:00 Document Registration [id number] 08/07/2010 14:40:00 Document Registration [id number] 08/02/2010 08:36:00 Document Registration [id number] 05/26/2010 12:24:00 Document Registration [id number] 04/14/2010 17:58:00 Document Registration [id number] 03/08/2010 10:03:00 Document Registration [id number] 03/07/2010 09:13:00 Document Registration [id number] 02/21/2010 08:56:00 Document Registration [id number] 08/02/2009 18:35:00 Document Registration [id number] 07/30/2015 23:46:44 ACT Document Registration
--- OUTSIDE RECORDS SUMMARY | 2018-11-26 17:06 | XMS REPORT | Encounter Summary ---
Author Author [facility] Organization [facility] Address Unknown Phone Unavailable Care Team Providers Care Applications Analyst Name Role Phone SarbjitmaryanneOsvaldo DO Unavailable Hermila Durbin MD Unavailable Rishi Cartwright MD Unavailable Donell Haque PA-C Unavailable Lizet Parsons RN Unavailable Unavailable Kristofer Dowling MD Unavailable Unavailable Harvinder Jj MD PCP Sldae Merino DO 4 Reason for Visit * Reason Comments Post-op Right BKA Encounter Details Care Team Description Date Type Department Pradip Jaramillo MD [address] [facility] [address] [place] [address] Postoperative wound dehiscence, subsequent encounter ( Primary Dx) 10/26/2018 Office Visit [facility] Physicians - Orthopedics [facility] [address] [place] [address] Social History Date Tobacco Use [...] Inhaled Oxygen - Concentration 10/26/2018 12:33 PM SKIVER HAND Weight 82.1 kg (181 lb) 10/26/2018 12:33 PM SKIVER HAND Height 170.2 cm (5' 7.01") 10/26/2018 12:33 PM SKIVER HAND Body Mass Index 28.34 in this encounter [...] Pradip Jaramillo MD - 10/26/2018 12:15 PM SKIVER HAND She is here today for initial postoperative follow up and wound check. Her wound continues to mature. She will continue with use of the wound VAC, and this was reapplied today. I will see her back in two weeks. In the presence of Pradip Jaramillo MD, I have taken down these notes, Kendal Grossman. 10/26/2018 12:42 PM ER HAND in this encounter Plan of Treatment Not on fileas of this encounter Visit Diagnoses Diagnosis Postoperative wound dehiscence, subsequent encounter - Primary in this encounter
--- OUTSIDE RECORDS SUMMARY | 2018-11-26 17:06 | XMS REPORT | Encounter Summary ---
Author Author [facility] Organization [facility] Address Unknown Phone Unavailable Care Team Providers Care Children Teacher Name Role Phone SarbjitmaryanneOsvaldo DO Unavailable Hermila Durbin MD Unavailable Rishi Cartwright MD Unavailable Donell Haque PA-C Unavailable Lizet Parsons RN Unavailable Unavailable Kristofer Dowling MD Unavailable Unavailable Harvinder Jj MD PCP lSade Merino DO 4 Reason for Visit * Reason Comments Post Operative Visit Encounter Details Care Team Description Date Type Department Pradip Jaramillo MD [address] [facility] [address] [place] [address] Postoperative wound dehiscence, subsequent encounter ( Primary Dx) 11/09/2018 Office Visit [facility] Physicians - Orthopedics [facility] [address] [place] [address] Social History Date Tobacco Use [...] Inhaled Oxygen - Concentration 11/09/2018 10:00 AM SUPERVISOR LENS GENERATING Weight 82.1 kg (181 lb) 11/09/2018 10:00 AM SUPERVISOR LENS GENERATING Height 170.2 cm (5' 7") 11/09/2018 10:00 AM SUPERVISOR LENS GENERATING Body Mass Index 28.35 in this encounter [...] Pradip Jaramillo MD - 11/09/2018 9:55 AM SUPERVISOR LENS GENERATING She is here today for postoperative follow [...] these notes, Kendal Grossman. 11/09/2018 10:22 AM RVISOR LENS GENERATING in this encounter Plan of Treatment Not on fileas of this encounter Visit Diagnoses Diagnosis Postoperative wound dehiscence, subsequent encounter - Primary in this encounter
--- OUTSIDE RECORDS SUMMARY | 2018-11-26 17:06 | XMS REPORT | Clinical Summary ---
Author Author [facility] Organization [facility] Address Unknown Phone Unavailable Care Team Providers Care Certified Nutritionist Name Role Phone Osvaldo Palafox DO Unavailable [...] in the Health Information Management department at [phone] for further assistance in locating additional records.[facility] Allergies Comments Active Allergy Reactions Severity Noted [...] Durbin - referral to Dr. Carlton in Sourcing Analyst for vaginal pain Gross hematuria 10/24/2015 Overview: [...] Below knee amputation status, right (HCC) 10/15/2018 [facility] Family Medicine - Encounter 10/16/2018 Pradip Jaramillo [...] Taken Vital Sign Reading 10/16/2018 3:00 PM [employer]CH[employer] Blood Pressure 107/64 10/16/2018 3:00 PM [employer] ARCHITECT Pulse 59 10/16/2018 3:00 PM [employer] ARCH[employer]ECT Temperature 37.1 C (98.7 F) 10/24/2015 3:18 PM [employer] ARCHITECT Respiratory Rate 16 10/16/2018 3:00 PM [employer] ARCHITECT Oxygen Saturation 92% - Inhaled Oxygen - Concentration 11/09/2018 10:00 AM [employer] ARCHITECT Weight 82.1 kg (181 lb) 11/09/2018 10:00 AM [employer] ARCHITECT Height 170.2 cm (5' 7") 11/09/2018 10:00 AM [employer] ARCHITECT Body Mass Index 28.35 Plan of Treatment [...] Associated Diagnosis TELEMETRY STRIPS-SCAN 10/18/2018 8:08 AM [employer] ARCHITECT POC GLUCOSE 10/16/2018 3:54 PM [employer] ARCHITECT POC GLUCOSE 10/16/2018 11:33 AM [employer] ARCHITECT POC GLUCOSE 10/16/2018 7:23 AM [employer] ARCHITECT BASIC METABOLIC PANEL Routine 10/16/2018 4:42 AM [employer] ARCHITECT CBC Routine 10/16/2018 4:42 AM [employer] ARCHITECT POC GLUCOSE 10/15/2018 8:18 PM [employer] ARCHITECT POC GLUCOSE 10/15/2018 5:13 PM [employer] ARCHITECT CULTURE-FUNGAL,OTHER STAT 10/15/2018 Penetrating wound 4:49 PM [employer] ARCHITECT GRAM STAIN STAT 10/15/2018 Penetrating wound 4:49 PM [employer] ARCHITECT CULTURE-WOUND/TISSUE/FLUI STAT 10/15/2018 Penetrating wound D(AEROBIC 4:49 PM [employer] ARCHITECT ONLY)W/SENSITIVITY CULTURE-ANAEROBIC STAT 10/15/2018 Penetrating wound 4:49 PM [employer] ARCHITECT CULTURE-FUNGAL,OTHER STAT 10/15/2018 Penetrating wound 4:48 PM [employer] ARCHITECT GRAM STAIN STAT 10/15/2018 Penetrating wound 4:48 PM [employer] ARCHITECT CULTURE-WOUND/TISSUE/FLUI STAT 10/15/2018 Penetrating wound D(AEROBIC 4:48 PM [employer]FRASTRU[employer] ARCHITECT ONLY)W/SENSITIVITY CULTURE-ANAEROBIC STAT 10/15/2018 Penetrating wound 4:48 PM [employer] ARCHITECT CULTURE-FUNGAL,OTHER STAT 10/15/2018 Penetrating wound 4:41 PM [employer] ARCHITECT GRAM STAIN STAT 10/15/2018 Penetrating wound 4:41 PM [employer] ARCHITECT CULTURE-WOUND/TISSUE/FLUI STAT 10/15/2018 Penetrating wound D(AEROBIC 4:41 PM [employer] ARCHITECT ONLY)W/SENSITIVITY CULTURE-ANAEROBIC STAT 10/15/2018 Penetrating wound 4:41 PM [employer] ARCH[employer]ECT ANESTHESIA PERIPHERAL Routine 10/15/2018 NERVE BLOCK 3:24 PM [employer] ARCHITECT POC GLUCOSE 10/15/2018 2:12 PM [employer] ARCHITECT POC GLUCOSE 10/15/2018 2:06 PM [employer]STRU[employer] ARCHITECT INCISION AND DRAINAGE 10/15/2018 Penetrating wound POSTOPERATIVE WOUND 2:00 PM [employer] ARCHITECT INFECTION - COMPLEX CULTURE-WOUND/TISSUE/FLUI Routine 09/16/2018 Wound drainage D(AEROBIC 1:24 PM CDT ONLY)W/SENSITIVITY CULTURE-FUNGAL,OTHER Routine 09/16/2018 Wound drainage 1:24 PM CDT CULTURE-ANAEROBIC Routine 09/16/2018 Wound drainage 1:24 PM CDT EXERCISE OXIMETRY-SCAN 09/01/2018 3:59 PM CDT ECG-SCAN 08/27/2018 1:34 PM CDT ECG-SCAN 08/27/2018 1:34 PM CDT from Last 3 Months Results * TELEMETRY STRIPS-SCAN (10/18/2018 8:08 AM [employer]CH[employer]) Narrative Performed At Ordered by an unspecified provider. * POC GLUCOSE (10/16/2018 3:54 PM [employer]) Only the most recent of 7 results within the time period is included. Glucose, POC 115 (H) 70 - 100 MG/DL [facility] Performing Organization Address City/State/Zipcode Phone Number MAIN LAB [address] [place] [address] * CBC (10/16/2018 4:42 AM [employer]CHITECT) White Blood Cells 5.3 4.5 - 11.0 [...] LAB MPV 9.3 7 - [address] [facility] Specimen Blood Performing Organization Address City/[facility]/Zipcode Phone Number [facility] [address] [place] [address] * BASIC METABOLIC PANEL (10/16/2018 4:42 AM [employer] ARCHITECT) Sodium 140 137 - 147 MMOL/L MAIN LAB Potassium 4.7 3.5 - 5.1 MMOL/L MAIN LAB Chloride 110 98 - 110 MMOL/L [facility] CO2 25 21 - 30 MMOL/L MAIN LAB Anion Gap 5 3 - 12 MAIN LAB Glucose 109 (H) 70 - 100 MG/DL MAIN LAB Blood Urea Nitrogen 18 7 - 25 MG/DL MAIN LAB Creatinine 0.59 0.4 - 1.00 MG/DL [facility] Calcium 8.4 (L) 8.5 - 10.6 MG/DL MAIN LAB eGFR Non >60 >60 mL/min MAIN LAB Comment: The eGFR is not validated for use in drug dosing adjustments.Continue to use estimated creatinine clearance per dosing reference text.Please contact the Clinical Pharmacist for questions. eGFR >60 >60 mL/min [facility] Comment: The eGFR is not validated for use in drug dosing adjustments.Continue to use estimated creatinine clearance per dosing reference text.Please contact the Clinical Pharmacist for questions. Specimen Blood Performing Organization Address City/[facility]/Zipcode Phone Number [facility] [address] [place] [address] * CULTURE-FUNGAL,OTHER (10/15/2018 4:49 PM [employer] ARCHITECT) Only the most recent of 4 results within the time period is included. Battery Name FUNGUS CULTURE MAIN LAB Specimen Description TISSUE [facility] LEG SUPERFICIAL WOUND DEHISCENCE Special Requests NONE [facility] Culture NO GROWTH OF FUNGUS AT 4 WEEKS [facility] Report Status FINAL MAIN LAB 11/15/2018 Specimen Tissue - Tissue Performing Organization Address City/[facility]/Zipcode Phone Number MAIN LAB [address] [place] [address] * GRAM STAIN (10/15/2018 4:49 PM [employer] ARCHITECT) Only the most recent of 3 results within the time period is included. Battery Name GRAM STAIN MAIN LAB Specimen Description TISSUE MAIN LAB LEG SUPERFICIAL WOUND DEHISCENCE Special Requests NONE MAIN LAB Gram Stain FEW MAIN LAB NEUTROPHILS MANY GRAM POSITIVE COCCI MANY GRAM POSITIVE RODS RESEMBLING DIPHTHEROIDS Report Status FINAL MAIN LAB 10/16/2018 Specimen Tissue - Tissue Performing Organization Address [facility] Phone Number [facility] LAB [address] [place] [address] * CULTURE-WOUND/TISSUE/FLUID(AEROBIC ONLY)W/SENSITIVITY (10/15/2018 4:49 PM [employer] ARCHITECT ) Only the most recent of 4 [...] Specimen Tissue - Tissue Performing Organization Address [facility] Phone Number MAIN LAB [address] [place] [address] * CULTURE-ANAEROBIC (10/15/2018 4:49 PM [employer] ARCHITECT) Only the most recent of 4 results within the time period is included. Battery Name ANAEROBE CULTURE MAIN LAB Specimen Description TISSUE MAIN LAB LEG SUPERFICIAL WOUND DEHISCENCE Special Requests NONE MAIN LAB Culture Heavy growth MAIN LAB PEPTONIPHILUS HAREI Heavy growth GEMELLA MORBILLORUM Report Status FINAL MAIN LAB 10/21/2018 Specimen Tissue - Tissue Performing Organization Address City/[facility]/Zipcode Phone Number MAIN LAB [address] [place] [address] * ANESTHESIA PERIPHERAL NERVE BLOCK (10/15/2018 3:24 PM [employer] ARCHITECT) Narrative Performed At Mert Choi MD [...] Mert Choi MD - 10/15/2018 3:24 PM [facility] Anesthesia Procedure: Peripheral Nerve Block PERIPHERAL NERVE [...] ID Type Phone Address Plan / Group [facility] xxxxxxxxxxx Medicaid Advance Directives Patient has advance care planning documents, and code status on file. For more information, please contact: [facility] [address] [place] [address] Date Inactivated Comments Code Status Date Activated 10/16/2018 7:44 PM Full Code 10/15/2018 8:12 PM Provider has discussed Code Status No, discussion not w/Patient or Family? necessary based on Dx 08/25/2018 8:04 PM Full Code 08/20/2018 10:12 AM Provider has discussed Code Status No, discussion not w/Patient or Family? necessary based on Dx
--- OUTSIDE RECORDS SUMMARY | 2018-11-26 17:07 | XMS REPORT | Encounter Summary ---
Author Author [facility] Organization [facility] Address Unknown Phone Unavailable Care Team Providers Care Roof Tiler Name Role Phone Osvaldo Palafox DO Unavailable Hermila Durbin MD Unavailable Rishi Cartwright MD Unavailable Donell Haque PA-C Unavailable Lizet Parsons RN Unavailable Unavailable Kristofer Dowling MD Unavailable Unavailable Harvinder Jj MD PCP Slade Merino DO 4 Reason for Visit * Auth/Cert Referred By Contact Referred To Contact Status Reason Specialty Diagnoses / Procedures Diagnoses Penetrating wound Penetrating wound [T14.8XXA] P rocedures NH INCISION & DRAINAGE COMPLEX PO WOUND INFECTION NH NEGATIVE PRESSURE WOUND THERAPY DME </=50 SQ CM NH INCISION & DRAINAGE COMPLEX PO WOUND INFECTION NH NEGATIVE PRESSURE WOUND THERAPY DME </=50 SQ CM INCISION AND DRAINAGE POSTOPERATIVE WOUND INFECTION RIGHT BELOW THE KNEE AMPUTATION STUMP APPLICATION NEGATIVE PRESSURE WOUND THERAPY Encounter Details Care Team Description Date Type Department Pradip Jaarmillo MD [address] [facility] [address] [place], [place] [id number] Below knee amputation status, right (HCC) 10/15/2018 Hospital Ortho/Fam Med - Encounter Main [facility] 4th fl Unit 10/16/2018 [address] [place], [place] [id number] Social History Date Tobacco Use Types Packs/Day [...] Taken Vital Sign Reading 10/16/2018 3:00 PM REAL ESTATE INSTRUCTOR Blood Pressure 107/64 10/16/2018 3:00 PM REAL ESTATE INSTRUCTOR Pulse 59 10/16/2018 3:00 PM REAL ESTATE INSTRUCTOR Temperature 37.1 C (98.7 F) - Respiratory Rate - 10/16/2018 3:00 PM REAL ESTATE INSTRUCTOR Oxygen Saturation 92% - Inhaled Oxygen - Concentration 10/15/2018 8:22 PM REAL ESTATE INSTRUCTOR Weight 83.8 kg (184 lb 11.9 oz) 10/15/2018 8:22 PM REAL ESTATE INSTRUCTOR Height 170.2 cm (5' 7") 10/15/2018 8:22 PM REAL ESTATE INSTRUCTOR Body Mass Index 28.94 in this encounter [...] Laine Kaiser RN - 10/16/2018 5:39 PM REAL ESTATE INSTRUCTOR Xin Fonseca discharged on 10/16/2018. . Discharge instructions reviewed with patient. Valuables returned: yes Personal Items / Valuables: Clothing, Assistive Devices Assistive Devices Type: Wheelchair Where Are Valuables Stored?: valuables/belongings in [facility] Home medications: n/a . Functional assessment at discharge complete: yes ESTATE INSTRUCTOR * Laine Kaiser RN - 10/16/2018 12:01 PM REAL ESTATE INSTRUCTOR Hard copy of patients oxycodone prescription sent home with patients brother in [place], yesterday and patient said he will help her get medication. ESTATE INSTRUCTOR * Deana Gonzalez, PT - 10/16/2018 11:20 AM REAL ESTATE INSTRUCTOR PHYSICAL THERAPY NOTE Physical Therapy orders received and chart reviewed. Per discussion with OT, patient denies changes from baseline mobility. Patient endorses no concerns with mobility at home. Physical therapy services will be discontinued at this time, please re-consult if the patient has a change in mobility status. Therapist: Deana Gonzalez DPT Date: 10/16/2018 ESTATE INSTRUCTOR * Heather Palmer, OT - 10/16/2018 10:09 AM REAL ESTATE INSTRUCTOR OCCUPATIONAL THERAPY NOTE Patient denies changes from [...] status. Therapist: Heather Palmer OT Date: 10/16/2018 ESTATE INSTRUCTOR * Elba Galan MD - 10/16/2018 7:07 AM REAL ESTATE INSTRUCTOR S: No acute events. Pain well-controlled on [...] dc today once family brings her Oxygen ESTATE INSTRUCTOR * Andrzej Warren RN - 10/15/2018 8:04 PM REAL ESTATE INSTRUCTOR Patient arrived on unit via cart accompanied by transport. Patient transferred to the bed without assistance. Assessment completed, refer to flowsheet for details. Orders released, reviewed, and implemented as appropriate. Oriented to surroundings, call light within reach. Plan of care reviewed. Will continue to monitor and assess. ESTATE INSTRUCTOR * Ruba Murrell RN - 10/15/2018 6:25 PM REAL ESTATE INSTRUCTOR Pt unable to maintain O2 on RA. IS treatments and deep breathing done. Pt wears home O2 at night but did not bring oxygen to transport home. business manager [employer] or [employer] was called and unable to get oxygen for pt to transport home. Ortho resident paged. ESTATE INSTRUCTOR in this encounter H&P Notes * Elba Galan MD - 10/15/2018 1:21 PM REAL ESTATE INSTRUCTOR H&P Interval Note Name: Xin Fonseca Date:10/15/2018 [...] these notes, Kendal Grossman. 10/07/2018 1:25 PM ESTATE INSTRUCTOR in this encounter Miscellaneous Notes * Case Mgmt DC Plan - Gloria Motta - 10/16/2018 10:44 AM REAL ESTATE INSTRUCTOR Request to Arrange Patient Transportation Received request from Arlene yolanda [facility] to arrange transportation for pt to d/ c home to [address] [place] [address] [address], [facility] [address]. Date and time of transport: 10/16/18 between [id number] Transport company: [employer] [phone] Digital Account Manager: Renny Confirmation # : [id number] Instructions for otr company driver: Patient requires w/c van. Per unit 43 RN, pt owns w/c and has with her in the room. To check the status of this ride please call [phone] use confirmation number [id number]. Gloria Motta Production Team Leader For further assistance please contact [facility] *[phone] ESTATE INSTRUCTOR * Case Mgmt DC Plan - Arlene Borrero - 10/16/2018 10:12 AM REAL ESTATE INSTRUCTOR SOCIAL WORK NOTE Name: Xintito Flores [facility] #: [id number] PLAN: Pt will discharge elliott when medically stable. INTERVENTION: Team called and reported pt needs Medicaid transport set up. tasked [employer]ON[employer] to complete this. Arlene [facility] Social Work *[id number] ESTATE INSTRUCTOR * Anesthesia Post Op Day 1 - Helena Marinelli SRNA - 10/16/2018 9:45 AM REAL ESTATE INSTRUCTOR Anesthesia Follow-Up Evaluation: Post-Procedure Day One Name: [...] Cardiovascular Status:acceptable, hemodynamically stable and stable Regional/Neuroaxial: ESTATE INSTRUCTOR * Patient Education - Andrzej Warren RN - 10/16/2018 4:03 AM REAL ESTATE INSTRUCTOR Pt education folder initiated and placed on bedside table for review with day RN ESTATE INSTRUCTOR * Procedures (Immed Post or Bedside) - Elba Galan MD - 10/15/2018 5:07 PM REAL ESTATE INSTRUCTOR Brief Operative Note Name: Xin Fonseca is [...] Disposition: PACU - kristine Galan MD Pager ESTATE INSTRUCTOR * Operative Report (Direct Entry) - Pradip Jaramillo MD - 10/15/2018 4:18 PM REAL ESTATE INSTRUCTOR OPERATIVE REPORT Name: Xin Fonseca is a [...] STAIN, CULTURE- FUNGAL,OTHER Pradip Jaramillo MD 10/15/2018 4969 B : B) RIGHT BELOW KNEE STUMP DEEP Tissue Leg CULTURE-ANAEROBIC, CULTURE-WOUND/ TISSUE/FLUID(AEROBIC ONLY)W/SENSITIVITY, CULTURE-TB (AFB), GRAM STAIN, CULTURE- FUNGAL,OTHER Pradip Jaramillo MD 10/15/2018 1640 C : SUPERFICIAL WOUND DEHISCENCE Tissue Leg CULTURE-ANAEROBIC, CULTURE-WOUND/ TISSUE/FLUID(AEROBIC ONLY)W/SENSITIVITY, CULTURE-TB (AFB), GRAM STAIN, CULTURE- FUNGAL,OTHER Pradip Jaramillo MD 10/15/2018 1641 Attestation: I performed this procedure with a resident. Darryl Andre MD Pager [phone] ESTATE INSTRUCTOR in this encounter Plan of Treatment Date/Time Name Priority Associated Diagnoses 10/15/2018 2:39 PM REAL ESTATE INSTRUCTOR POC ANES US GUIDED NERVE BLOCK Routine Order Schedule Name Priority Associated Diagnoses ONE TIME for 1 Occurrences starting 10/15/2018 until 10/15/2018 POC ANES US GUIDED NERVE BLOCK Routine Ordered: 10/15/2018 NEGATIVE PRESSURE THERAPY DRAIN - Routine 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) as of this encounter Procedures Comments Procedure Name Priority Date/Time Associated Diagnosis TELEMETRY STRIPS-SCAN 10/18/2018 8:08 AM REAL ESTATE INSTRUCTOR POC GLUCOSE 10/16/2018 3:54 PM REAL ESTATE INSTRUCTOR POC GLUCOSE 10/16/2018 11:33 AM REAL ESTATE INSTRUCTOR POC GLUCOSE 10/16/2018 7:23 AM REAL ESTATE INSTRUCTOR CBC Routine 10/16/2018 4:42 AM REAL ESTATE INSTRUCTOR BASIC METABOLIC PANEL Routine 10/16/2018 4:42 AM REAL ESTATE INSTRUCTOR POC GLUCOSE 10/15/2018 8:18 PM REAL ESTATE INSTRUCTOR POC GLUCOSE 10/15/2018 5:13 PM REAL ESTATE INSTRUCTOR CULTURE-FUNGAL,OTHER STAT 10/15/2018 Penetrating wound 4:49 PM REAL ESTATE INSTRUCTOR GRAM STAIN STAT 10/15/2018 Penetrating wound 4:49 PM REAL ESTATE INSTRUCTOR CULTURE-WOUND/TISSUE/FLUI STAT 10/15/2018 Penetrating wound D(AEROBIC 4:49 PM REAL ESTATE INSTRUCTOR ONLY)W/SENSITIVITY CULTURE-ANAEROBIC STAT 10/15/2018 Penetrating wound 4:49 PM REAL ESTATE INSTRUCTOR CULTURE-FUNGAL,OTHER STAT 10/15/2018 Penetrating wound 4:48 PM REAL ESTATE INSTRUCTOR GRAM STAIN STAT 10/15/2018 Penetrating wound 4:48 PM REAL ESTATE INSTRUCTOR CULTURE-WOUND/TISSUE/FLUI STAT 10/15/2018 Penetrating wound D(AEROBIC 4:48 PM REAL ESTATE INSTRUCTOR ONLY)W/SENSITIVITY CULTURE-ANAEROBIC STAT 10/15/2018 Penetrating wound 4:48 PM REAL ESTATE INSTRUCTOR CULTURE-FUNGAL,OTHER STAT 10/15/2018 Penetrating wound 4:41 PM REAL ESTATE INSTRUCTOR GRAM STAIN STAT 10/15/2018 Penetrating wound 4:41 PM REAL ESTATE INSTRUCTOR CULTURE-WOUND/TISSUE/FLUI STAT 10/15/2018 Penetrating wound D(AEROBIC 4:41 PM REAL ESTATE INSTRUCTOR ONLY)W/SENSITIVITY CULTURE-ANAEROBIC STAT 10/15/2018 Penetrating wound 4:41 PM REAL ESTATE INSTRUCTOR POC GLUCOSE 10/15/2018 2:12 PM REAL ESTATE INSTRUCTOR POC GLUCOSE 10/15/2018 2:06 PM REAL ESTATE INSTRUCTOR INCISION AND DRAINAGE 10/15/2018 Penetrating wound POSTOPERATIVE WOUND 2:00 PM REAL ESTATE INSTRUCTOR INFECTION - COMPLEX in this encounter Results * TELEMETRY STRIPS-SCAN (10/18/2018 8:08 AM REAL ESTATE INSTRUCTOR) Narrative Performed At Ordered by an unspecified provider. * POC GLUCOSE (10/16/2018 3:54 PM REAL ESTATE INSTRUCTOR) Glucose, POC 115 (H) 70 - 100 MG/DL [facility] Performing Organization Address [facility] Phone Number [facility] [address] [place] [address] * POC GLUCOSE (10/16/2018 11:33 AM REAL ESTATE INSTRUCTOR) Glucose, POC 125 (H) 70 - 100 MG/DL [facility] Performing Organization Address [facility] Phone Number [facility] [address] [place] [address] * POC GLUCOSE (10/16/2018 7:23 AM REAL ESTATE INSTRUCTOR) Glucose, POC 106 (H) 70 - 100 MG/DL [facility] Performing Organization Address [facility] Phone Number [facility] [address] [place] [address] * BASIC METABOLIC PANEL (10/16/2018 4:42 AM REAL ESTATE INSTRUCTOR) Sodium 140 137 - 147 MMOL/L [facility] [...] for questions. Specimen Blood Performing Organization Address [facility] Phone Number [facility] [address] [place] [address] * CBC (10/16/2018 4:42 AM REAL ESTATE INSTRUCTOR) White Blood Cells 5.3 4.5 - 11.0 [...] MAIN LAB Specimen Blood Performing Organization Address [facility] Phone Number [facility] [address] [place] [address] * POC GLUCOSE (10/15/2018 8:18 PM REAL ESTATE INSTRUCTOR) Glucose, POC 119 (H) 70 - 100 MG/DL [facility] Performing Organization Address [facility] Phone Number [facility] [address] [place] [address] * POC GLUCOSE (10/15/2018 5:13 PM REAL ESTATE INSTRUCTOR) Glucose, POC 86 70 - 100 MG/DL [facility] Performing Organization Address [facility] Phone Number [facility] [address] [place] [address] * CULTURE-FUNGAL,OTHER (10/15/2018 4:49 PM REAL ESTATE INSTRUCTOR) Battery Name FUNGUS CULTURE [facility] Specimen Description TISSUE [facility] LEG SUPERFICIAL WOUND DEHISCENCE Special Requests NONE [facility] Culture NO GROWTH OF FUNGUS AT 4 WEEKS [facility] Report Status FINAL [facility] 11/15/2018 Specimen Tissue - Tissue Performing Organization Address [facility] Phone Number [facility] [address] [place] [address] * GRAM STAIN (10/15/2018 4:49 PM REAL ESTATE INSTRUCTOR) Battery Name GRAM STAIN [facility] Specimen Description TISSUE [facility] LEG SUPERFICIAL WOUND DEHISCENCE Special Requests NONE [facility] Gram Stain FEW [facility] NEUTROPHILS MANY GRAM POSITIVE COCCI MANY GRAM POSITIVE RODS RESEMBLING DIPHTHEROIDS Report Status FINAL [facility] 10/16/2018 Specimen Tissue - Tissue Performing Organization Address [facility] Phone Number [facility] [address] [place] [address] * CULTURE-WOUND/TISSUE/FLUID(AEROBIC ONLY)W/SENSITIVITY (10/15/2018 4:49 PM REAL ESTATE INSTRUCTOR ) Battery Name ROUTINE CULTURE [facility] [...] Specimen Tissue - Tissue Performing Organization Address [facility] Phone Number [facility] [address] [place] [address] * CULTURE-ANAEROBIC (10/15/2018 4:49 PM REAL ESTATE INSTRUCTOR) Battery Name ANAEROBE CULTURE [facility] Specimen Description TISSUE [facility] LEG SUPERFICIAL WOUND DEHISCENCE Special Requests NONE [facility] Culture Heavy growth [facility] PEPTONIPHILUS HAREI Heavy growth GEMELLA MORBILLORUM Report Status FINAL [facility] 10/21/2018 Specimen Tissue - Tissue Performing Organization Address [facility] Phone Number [facility] [address] [place] [address] * CULTURE-FUNGAL,OTHER (10/15/2018 4:48 PM REAL ESTATE INSTRUCTOR) Battery Name FUNGUS CULTURE [facility] Specimen Description FLOCKED SWAB [facility] B RIGHT LEG BELOW THE KNEE STUMP DEEP Special Requests NONE [facility] Culture NO GROWTH OF FUNGUS AT 4 WEEKS [facility] Report Status FINAL [facility] 11/15/2018 Specimen Tissue - Flocked Swab Performing Organization Address [facility] Phone Number [facility] [address] [place] [address] * GRAM STAIN (10/15/2018 4:48 PM REAL ESTATE INSTRUCTOR) Battery Name GRAM STAIN [facility] Specimen Description FLOCKED SWAB [facility] B RIGHT LEG BELOW THE KNEE STUMP DEEP Special Requests NONE [facility] Gram Stain NO NEUTROPHILS SEEN [facility] MODERATE GRAM POSITIVE COCCI FEW GRAM POSITIVE RODS Report Status FINAL [facility] 10/16/2018 Specimen Tissue - Flocked Swab Performing Organization Address [facility] Phone Number [facility] [address] [place] [address] * CULTURE-WOUND/TISSUE/FLUID(AEROBIC ONLY)W/SENSITIVITY (10/15/2018 4:48 PM REAL ESTATE INSTRUCTOR ) Battery Name ROUTINE CULTURE [facility] [...] Tissue - Flocked Swab Performing Organization Address [facility] Phone Number [facility] [address] [place] [address] * CULTURE-ANAEROBIC (10/15/2018 4:48 PM REAL ESTATE INSTRUCTOR) Battery Name ANAEROBE CULTURE [facility] Specimen Description FLOCKED SWAB [facility] B RIGHT LEG BELOW THE KNEE STUMP DEEP Special Requests NONE [facility] Culture Moderate growth [facility] PEPTONIPHILUS HAREI Moderate growth GEMELLA MORBILLORUM Report Status FINAL [facility] 10/21/2018 Specimen Tissue - Flocked Swab Performing Organization Address [facility] Phone Number [facility] [address] [place] [address] * CULTURE-FUNGAL,OTHER (10/15/2018 4:41 PM REAL ESTATE INSTRUCTOR) Battery Name FUNGUS CULTURE [facility] Specimen Description FLOCKED SWAB [facility] A RIGHT LEG BELOW THE KNEE STUMP DEEP Special Requests NONE [facility] Culture NO GROWTH OF FUNGUS AT 4 WEEKS [facility] Report Status FINAL [facility] 11/15/2018 Specimen Tissue - Flocked Swab Performing Organization Address [facility] Phone Number [facility] [address] [place] [address] * GRAM STAIN (10/15/2018 4:41 PM REAL ESTATE INSTRUCTOR) Battery Name GRAM STAIN [facility] Specimen Description FLOCKED SWAB [facility] A RIGHT LEG BELOW THE KNEE STUMP DEEP Special Requests NONE [facility] Gram Stain NO NEUTROPHILS SEEN [facility] FEW GRAM POSITIVE COCCI Report Status FINAL [facility] 10/16/2018 Specimen Tissue - Flocked Swab Performing Organization Address [facility] Phone Number [facility] [address] [place] [address] * CULTURE-WOUND/TISSUE/FLUID(AEROBIC ONLY)W/SENSITIVITY (10/15/2018 4:41 PM REAL ESTATE INSTRUCTOR ) Battery Name ROUTINE CULTURE [facility] [...] Tissue - Flocked Swab Performing Organization Address [facility] Phone Number [facility] [address] [place] [address] * CULTURE-ANAEROBIC (10/15/2018 4:41 PM REAL ESTATE INSTRUCTOR) Battery Name ANAEROBE CULTURE [facility] Specimen Description FLOCKED SWAB [facility] A RIGHT LEG BELOW THE KNEE STUMP DEEP Special Requests NONE [facility] Culture Moderate growth [facility] PEPTONIPHILUS HAREI Moderate growth GEMELLA MORBILLORUM Report Status FINAL [facility] 10/21/2018 Specimen Tissue - Flocked Swab Performing Organization Address [facility] Phone Number [facility] [address] [place] [address] * POC GLUCOSE (10/15/2018 2:12 PM REAL ESTATE INSTRUCTOR) Glucose, POC 90 70 - 100 MG/DL [facility] Performing Organization Address [facility]/State/Zipcode Phone Number [facility] [address] [place] [address] * POC GLUCOSE (10/15/2018 2:06 PM REAL ESTATE INSTRUCTOR) Glucose, POC 91 70 - 100 MG/DL [facility] Performing Organization Address City/State/Zipcode Phone Number [facility] [address] [place] [address] in this encounter Visit Diagnoses Diagnosis Amputation [...] hours from all sources., 10/15/2018 2:51 PM REAL ESTATE INSTRUCTOR 650 mg acetaminophen (TYLENOL) tablet 650 mg Given 650 mg, Oral, ONCE, 1 dose, Thu10/15/18 at 1500, To be given pre-op with a sip of water immediately upon arrival to [place] (>30 minutes prior to scheduled surgery time). [...] hours from all sources., 10/16/2018 6:23 AM REAL ESTATE INSTRUCTOR 2 puffs albuterol (PROAIR HFA, VENTOLIN HFA, [...] be per RT policy., 10/16/2018 8:25 AM REAL ESTATE INSTRUCTOR 5 mg amLODIPine (NORVASC) tablet 5 mg Given 5 mg, Oral, DAILY, First dose on 10/16/18 at 0900, Until Discontinued, NURSING: Please educate patient and document: Do not give with grapefruit juice., 10/16/2018 8:24 AM REAL ESTATE INSTRUCTOR 81 mg aspirin EC tablet 81 mg Given 81 mg, Oral, DAILY, First dose on 10/16/18 at 0900, Until Discontinued 10/16/2018 8:25 AM REAL ESTATE INSTRUCTOR 40 mg atorvastatin (LIPITOR) tablet 40 mg Given 40 mg, Oral, DAILY, First dose on 10/16/18 at 0900, Until Discontinued budesonide/formoterol (SYMBICORT HFA) 160/4.5 mcg inhalation 2 puff 2 puff, Inhalation, RT TWICE DAILY, First dose on Thu10/15/18 at 2130, Until Discontinued, When administered by RT, will be per RT policy., 10/16/2018 5:02 AM REAL ESTATE INSTRUCTOR 1 g ceFAZolin (ANCEF) IVP 1 g Given 1 g, Intravenous, EVERY 8 HOURS, 2 doses, First dose on Thu10/15/18 at 2100, Last dose on Thu10/16/18 at 0500, First dose: 2100 IV PUSH -- RECONSTITUTE each 1 g vial by adding 10 mL 0.9% NACL, for patient <80 kg, 1 g Given 10/15/2018 8:39 PM REAL ESTATE INSTRUCTOR 10/16/2018 8:24 AM REAL ESTATE INSTRUCTOR 10 mg cetirizine (ZYRTEC) tablet 10 mg Given 10 mg, Oral, DAILY, First dose on 10/16/18 at 0900, Until Discontinued 10/16/2018 8:25 AM REAL ESTATE INSTRUCTOR 10 mg cyclobenzaprine (FLEXERIL) tablet 10 mg [...] 1940, Insomnia, Itching Injectable 10/15/2018 6:48 PM REAL ESTATE INSTRUCTOR 25 mcg fentaNYL citrate PF (SUBLIMAZE) Given injection 25 mcg 25 mcg, Intravenous, EVERY 5 MIN PRN, Starting Thu10/15/18 at 1702, Until Thu10/15/18 at 1852, Pain Injectable, For Pain Score < 4, Maximum total dose of 100 mcg Hold for RR < 10, PACU (only) 25 mcg Given 10/15/2018 6:39 PM REAL ESTATE INSTRUCTOR 25 mcg Given 10/15/2018 5:45 PM REAL ESTATE INSTRUCTOR 10/15/2018 2:51 PM REAL ESTATE INSTRUCTOR 600 mg gabapentin (NEURONTIN) capsule 600 mg Given 600 mg, Oral, ONCE, 1 dose, Thu10/15/18 at 1500, To be given pre-op with a sip of water immediately upon arrival to [place] (>30 minutes prior to scheduled surgery time)., Pre-Op 10/16/2018 3:19 PM REAL ESTATE INSTRUCTOR 600 mg gabapentin (NEURONTIN) capsule 600 mg Given 600 mg, Oral, THREE TIMES DAILY, First dose on Thu10/15/18 at 2100, Until Discontinued 600 mg Given 10/16/2018 8:24 AM REAL ESTATE INSTRUCTOR 600 mg Given 10/15/2018 8:38 PM REAL ESTATE INSTRUCTOR 10/15/2018 2:51 PM REAL ESTATE INSTRUCTOR 600 mg ibuprofen (MOTRIN) tablet 600 mg Given 600 mg, Oral, ONCE, 1 dose, Thu10/15/18 at 1500, To be given pre-op with a sip of water immediately upon arrival to [place] (>30 minutes prior to scheduled surgery time). [...] uncheck "Do not dispense", 10/16/2018 6:24 AM REAL ESTATE INSTRUCTOR 50 mcg levothyroxine (SYNTHROID) tablet 50 mcg Given 50 mcg, Oral, DAILY 30MIN BEFORE BREAKFAST, First dose on Thu10/16/18 at 0630, Until Discontinued, Give 1 hour before a meal. If patient is receiving tube feedings, hold tube feed 1hr before and 1hr after dose., 10/16/2018 8:24 AM REAL ESTATE INSTRUCTOR 25 mg metoprolol tartrate (LOPRESSOR) tablet Given 25 mg 25 mg, Oral, TWICE DAILY, First dose on Thu10/15/18 at 2100, Until Discontinued, Hold for systolic BP < 140, 25 mg Given 10/15/2018 8:38 PM REAL ESTATE INSTRUCTOR 10/15/2018 8:38 PM REAL ESTATE INSTRUCTOR 10 mg montelukast (SINGULAIR) tablet 10 mg Given 10 mg, Oral, AT BEDTIME DAILY, First dose on Thu10/15/18 at 2100, Until Discontinued 10/15/2018 5:28 PM REAL ESTATE INSTRUCTOR 10 mg oxyCODONE (ROXICODONE, OXY-IR) tablet Given 5-10 mg 5-10 mg, Oral, ONCE PRN, 1 dose, Starting Thu10/15/18 at 1702, Until Thu10/15/18 at 1728, Pain PO, For Pain Score <4, PACU (only) 10/16/2018 3:19 PM REAL ESTATE INSTRUCTOR 15 mg oxyCODONE (ROXICODONE, OXY-IR) tablet Given 5-15 mg 5-15 mg, Oral, EVERY 3 HOURS PRN, Starting Thu10/15/18 at 2012, Until 10/16/18 at 1939, Pain PO 15 mg Given 10/16/2018 11:43 AM REAL ESTATE INSTRUCTOR 15 mg Given 10/16/2018 8:29 AM REAL ESTATE INSTRUCTOR 10/16/2018 8:24 AM REAL ESTATE INSTRUCTOR [address] (PROTONIX) tablet 40 mg Given 40 mg, Oral, DAILY, First dose on 10/16/18 at 0900, Until Discontinued, Do not crush or chew tablet., 10/16/2018 6:25 AM REAL ESTATE INSTRUCTOR 1 capsule tiotropium (SPIRIVA) capsule for inhaler Given 1 capsule 1 capsule, Inhalation, RT DAILY, First dose on 10/16/18 at 0600, Until Discontinued, When administered by RT, will be per RT policy. NOTES: Administer immediately after opening blister foil pouch. Each capsule is meant to deliver 2 inhalations (1 cap=2 inhalations)., 10/15/2018 8:39 PM REAL ESTATE INSTRUCTOR 100 mg traZODone (DESYREL) tablet 100 mg Given 100 mg, Oral, AT BEDTIME DAILY, First dose on Thu10/15/18 at 2100, Until Discontinued in this encounter
--- OUTSIDE RECORDS SUMMARY | 2018-11-26 17:07 | XMS REPORT | Encounter Summary ---
Author Author [facility] Organization [facility] Address Unknown Phone Unavailable Care Team Providers Care Relief Docking Master Name Role Phone SarbjitOsvaldo madden Unavailable Hermila Durbin MD Unavailable Rishi Cartwright MD Unavailable Donell Haque PA-C Unavailable Lizet Parsons RN Unavailable Unavailable Kristofer Dowling MD Unavailable Unavailable Harvinder Jj MD PCP Slade Merino DO 4 Encounter Details Care Team Description Date Type Department Mert Addison MD [address] [place] [address] 10/15/2018 Hospital [facility] Radiology [facility] 2nd fl [address] [place] [address] Social History Date Tobacco Use [...]
--- OUTSIDE RECORDS SUMMARY | 2018-11-26 17:08 | XMS REPORT | Encounter Summary ---
Author Author [facility] Organization [facility] Address Unknown Phone Unavailable Care Team Providers Care Glue Wheel Operator Name Role Phone Osvaldo Palafox DO Unavailable Hermila Durbin MD Unavailable Rishi Cartwright MD Unavailable Donell Haque PA-C Unavailable Lizet Parsons RN Unavailable Unavailable Kristofer Dowling MD Unavailable Unavailable Harvinder Jj MD PCP Slade Merino DO 4 Reason for Visit * Auth/Cert Referred By Contact Referred To Contact Status Reason Specialty Diagnoses / Procedures Diagnoses Penetrating wound Penetrating wound [T14.8XXA] P rocedures DC INCISION & DRAINAGE COMPLEX PO WOUND INFECTION DC NEGATIVE PRESSURE WOUND THERAPY DME </=50 SQ CM DC INCISION & DRAINAGE COMPLEX PO WOUND INFECTION DC NEGATIVE PRESSURE WOUND THERAPY DME </=50 SQ CM INCISION AND DRAINAGE POSTOPERATIVE WOUND INFECTION RIGHT BELOW THE KNEE AMPUTATION STUMP APPLICATION NEGATIVE PRESSURE WOUND THERAPY Encounter Details Care Team Description Date Type Department Lucius Guerra CRNA [address] [place] [address] 10/15/2018 Anesthesia Main Operating Room Event [facility] [address] [place] [address] Anesthesia Record Responsible Anesthesiologist Anesthesia [...] ANESTHESIA PERIPHERAL NERVE BLOCK (10/15/2018 3:24 PM SOCIAL INSURANCE ADMINISTRATOR) Narrative Performed At Mert Choi MD 10/18/20187:31 [...] Mert Choi MD - 10/15/2018 3:24 PM SOCIAL INSURANCE ADMINISTRATOR Anesthesia Procedure: Peripheral Nerve Block PERIPHERAL NERVE [...] Medication Order MAR Action 10/15/2018 4:39 PM SOCIAL INSURANCE ADMINISTRATOR 2 g ceFAZolin (ANCEF) injection Given INTRA-PROCEDURE MED, Starting Thu10/15/18 at 1639, Until Thu10/15/18 at 1708, Anesthesia Intra-op 10/15/2018 3:15 PM SOCIAL INSURANCE ADMINISTRATOR 4 mg dexamethasone (DECADRON) injection Given INTRA-PROCEDURE MED, Starting Thu10/15/18 at 1515, Until Thu10/15/18 at 1708, Nausea/Vomiting Injectable, Anesthesia Intra-op 10/15/2018 4:14 PM SOCIAL INSURANCE ADMINISTRATOR 2 drops dextran 70/hypromellose (GENTEAL TEARS; Given BION TEARS) ophthalmic solution INTRA-PROCEDURE MED, Starting Thu10/15/18 at 1614, Until Thu10/15/18 at 1708, Dry Eyes, Anesthesia Intra-op 10/15/2018 4:24 PM SOCIAL INSURANCE ADMINISTRATOR 25 mcg fentaNYL citrate PF (SUBLIMAZE) Given injection INTRA-PROCEDURE MED, Starting Thu10/15/18 at 1619, Until Thu10/15/18 at 1708, Pain Injectable, Anesthesia Intra-op 25 mcg Given 10/15/2018 4:19 PM SOCIAL INSURANCE ADMINISTRATOR 10/15/2018 4:57 PM SOCIAL INSURANCE ADMINISTRATOR lactated ringers infusion Given - New 1,000 mL, 1,000 mL, Intravenous, at 20 Bag mL/hr, CONTINUOUS, Starting Thu10/15/18 at 1345, Until Thu10/15/18 at 1852, Pre-Op Given - New Bag 10/15/2018 3:47 PM SOCIAL INSURANCE ADMINISTRATOR 10/15/2018 4:10 PM SOCIAL INSURANCE ADMINISTRATOR 100 mg lidocaine (PF) injection Given INTRA-PROCEDURE MED, Starting Thu10/15/18 at 1610, Until Thu10/15/18 at 1708, Anesthesia Intra-op 10/15/2018 4:40 PM SOCIAL INSURANCE ADMINISTRATOR 4 mg ondansetron (ZOFRAN) injection Given Intravenous, INTRA-PROCEDURE MED, Starting Thu10/15/18 at 1640, Until Thu10/15/18 at 1708, Nausea/Vomiting Injectable, Anesthesia Intra-op 10/15/2018 5:05 PM SOCIAL INSURANCE ADMINISTRATOR 100 mcg phenylephrine in NS injection syringe Given Intravenous, INTRA-PROCEDURE MED, Starting Thu10/15/18 at 1627, Until Thu10/15/18 at 1708, Symptomatic Hypotension, Anesthesia Intra-op 100 mcg Given 10/15/2018 5:02 PM SOCIAL INSURANCE ADMINISTRATOR 200 mcg Given 10/15/2018 4:56 PM SOCIAL INSURANCE ADMINISTRATOR 10/15/2018 4:14 PM SOCIAL INSURANCE ADMINISTRATOR 20 mg propofol (DIPRIVAN) injection Given INTRA-PROCEDURE MED, Starting Thu10/15/18 at 1610, Until Thu10/15/18 at 1708, Anesthesia Intra-op 150 mg Given 10/15/2018 4:10 PM SOCIAL INSURANCE ADMINISTRATOR 10/15/2018 3:15 PM SOCIAL INSURANCE ADMINISTRATOR 30 mL ropivacaine (PF) (NAROPIN) 0.5% (5 Given mg/mL) injection INTRA-PROCEDURE MED, Starting Thu10/15/18 at 1515, Until Thu10/15/18 at 1708, Anesthesia Intra-op in this encounter
--- OUTSIDE RECORDS SUMMARY | 2018-11-26 17:08 | XMS REPORT | Encounter Summary ---
Author Author [facility] Organization [facility] Address Unknown Phone Unavailable Care Team Providers Care Waste Chopper Name Role Phone Osvaldo Palafox DO Unavailable Hermila Durbin MD Unavailable Rishi Cartwright MD Unavailable Donell Haque PA-C Unavailable Lizet Parsons RN Unavailable Unavailable Kristofer Dowling MD Unavailable Unavailable Harvinder Jj MD PCP Slade Merino DO 4 Reason for Referral * Consult, Test & Treat (Routine) Referred By Contact Referred To Contact Status Reason Specialty Diagnoses / Procedures Pradip Jaramillo MD [id number] [place] [address] Closed Specialty Services Diagnoses Required Penetrating wound Reason for Visit * Reason Comments Post-op Encounter Details Care Team Description Date [place] [address] [place] [address] [facility] [place], [place] [id number] Penetrating wound (Primary Dx) 10/07/2018 Office Visit [facility] [address] [place] [address] Social History Date Tobacco Use [...] Pradip Jaramillo MD - 10/07/2018 11:40 AM MAINSPRING STRIP INSPECTOR She is here today for postpoerative follow [...] these notes, Kendal Grossman. 10/07/2018 1:25 PM SPRING STRIP INSPECTOR in this encounter Plan of Treatment Order Schedule Name Priority Associated Diagnoses Ordered: 10/07/2018 AMB REFERRAL TO HOME CARE Routine Penetrating wound as of this encounter Visit Diagnoses Diagnosis Penetrating wound - Primary Open wound(s) (multiple) of unspecified site(s), without mention of complication in this encounter
--- OUTSIDE RECORDS SUMMARY | 2018-11-26 17:08 | XMS REPORT | Encounter Summary ---
Author Author [facility] Organization [facility] Address Unknown Phone Unavailable Care Team Providers Care Daycare Director Name Role Phone Osvaldo Palafox DO Unavailable Hermila Durbin MD Unavailable Rishi Cartwright MD Unavailable Donell Haque PA-C Unavailable Lizet Parsons RN Unavailable Unavailable Kristofer Dowling MD Unavailable Unavailable Harvinder Jj MD PCP Slade Merino DO 4 Reason for Visit * Auth/Cert Referred By Contact Referred To Contact Status Reason Specialty Diagnoses / Procedures Diagnoses Penetrating wound Penetrating wound [T14.8XXA] P rocedures NE INCISION & DRAINAGE COMPLEX PO WOUND INFECTION NE NEGATIVE PRESSURE WOUND THERAPY DME </=50 SQ CM NE INCISION & DRAINAGE COMPLEX PO WOUND INFECTION NE NEGATIVE PRESSURE WOUND THERAPY DME </=50 SQ CM INCISION AND DRAINAGE POSTOPERATIVE WOUND INFECTION RIGHT BELOW THE KNEE AMPUTATION STUMP APPLICATION NEGATIVE PRESSURE WOUND THERAPY Encounter Details Care Team Description Date Type Department Pradip Jaramillo MD [address] [facility] [address] [place] [address] INCISION AND DRAINAGE POSTOPERATIVE WOUND INFECTION RIGHT BELOW THE KNEE AMPUTATION STUMP WITH APPLICATION OF WOUND VAC 10/15/2018 Surgery Main Operating Room [facility] [address]nd fl [address] [place], [place] [id number] Social History Date Tobacco Use Types Packs/Day [...] Taken Vital Sign Reading 10/16/2018 3:00 PM DIRECTOR OF MATERIALS MANAGEMENT Blood Pressure 107/64 10/16/2018 3:00 PM DIRECTOR OF MATERIALS MANAGEMENT Pulse 59 10/16/2018 3:00 PM DIRECTOR OF MATERIALS MANAGEMENT Temperature 37.1 C (98.7 F) - Respiratory Rate - 10/16/2018 3:00 PM DIRECTOR OF MATERIALS MANAGEMENT Oxygen Saturation 92% - Inhaled Oxygen - Concentration 10/15/2018 8:22 PM DIRECTOR OF MATERIALS MANAGEMENT Weight 83.8 kg (184 lb 11.9 oz) 10/15/2018 8:22 PM DIRECTOR OF MATERIALS MANAGEMENT Height 170.2 cm (5' 7") 10/15/2018 8:22 PM DIRECTOR OF MATERIALS MANAGEMENT Body Mass Index 28.94 in this encounter [...] Name Priority Associated Diagnoses 10/15/2018 2:39 PM DIRECTOR OF MATERIALS MANAGEMENT POC ANES US GUIDED NERVE BLOCK Routine Order Schedule Name Priority Associated Diagnoses ONE TIME for 1 Occurrences starting 10/15/2018 until 10/15/2018 POC ANES US GUIDED NERVE BLOCK Routine Ordered: 10/15/2018 NEGATIVE PRESSURE THERAPY DRAIN - Routine 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) as of this encounter Procedures Comments Procedure Name Priority Date/Time Associated Diagnosis TELEMETRY STRIPS-SCAN 10/18/2018 8:08 AM DIRECTOR OF MATERIALS MANAGEMENT POC GLUCOSE 10/16/2018 3:54 PM DIRECTOR OF MATERIALS MANAGEMENT POC GLUCOSE 10/16/2018 11:33 AM DIRECTOR OF MATERIALS MANAGEMENT POC GLUCOSE 10/16/2018 7:23 AM DIRECTOR OF MATERIALS MANAGEMENT CBC Routine 10/16/2018 4:42 AM DIRECTOR OF MATERIALS MANAGEMENT BASIC METABOLIC PANEL Routine 10/16/2018 4:42 AM DIRECTOR OF MATERIALS MANAGEMENT POC GLUCOSE 10/15/2018 8:18 PM DIRECTOR OF MATERIALS MANAGEMENT POC GLUCOSE 10/15/2018 5:13 PM DIRECTOR OF MATERIALS MANAGEMENT CULTURE-FUNGAL,OTHER STAT 10/15/2018 Penetrating wound 4:49 PM DIRECTOR OF MATERIALS MANAGEMENT GRAM STAIN STAT 10/15/2018 Penetrating wound 4:49 PM DIRECTOR OF MATERIALS MANAGEMENT CULTURE-WOUND/TISSUE/FLUI STAT 10/15/2018 Penetrating wound D(AEROBIC 4:49 PM DIRECTOR OF MATERIALS MANAGEMENT ONLY)W/SENSITIVITY CULTURE-ANAEROBIC STAT 10/15/2018 Penetrating wound 4:49 PM DIRECTOR OF MATERIALS MANAGEMENT CULTURE-FUNGAL,OTHER STAT 10/15/2018 Penetrating wound 4:48 PM DIRECTOR OF MATERIALS MANAGEMENT GRAM STAIN STAT 10/15/2018 Penetrating wound 4:48 PM DIRECTOR OF MATERIALS MANAGEMENT CULTURE-WOUND/TISSUE/FLUI STAT 10/15/2018 Penetrating wound D(AEROBIC 4:48 PM DIRECTOR OF MATERIALS MANAGEMENT ONLY)W/SENSITIVITY CULTURE-ANAEROBIC STAT 10/15/2018 Penetrating wound 4:48 PM DIRECTOR OF MATERIALS MANAGEMENT CULTURE-FUNGAL,OTHER STAT 10/15/2018 Penetrating wound 4:41 PM DIRECTOR OF MATERIALS MANAGEMENT GRAM STAIN STAT 10/15/2018 Penetrating wound 4:41 PM DIRECTOR OF MATERIALS MANAGEMENT CULTURE-WOUND/TISSUE/FLUI STAT 10/15/2018 Penetrating wound D(AEROBIC 4:41 PM DIRECTOR OF MATERIALS MANAGEMENT ONLY)W/SENSITIVITY CULTURE-ANAEROBIC STAT 10/15/2018 Penetrating wound 4:41 PM DIRECTOR OF MATERIALS MANAGEMENT POC GLUCOSE 10/15/2018 2:12 PM DIRECTOR OF MATERIALS MANAGEMENT POC GLUCOSE 10/15/2018 2:06 PM DIRECTOR OF MATERIALS MANAGEMENT INCISION AND DRAINAGE 10/15/2018 Penetrating wound POSTOPERATIVE WOUND 2:00 PM DIRECTOR OF MATERIALS MANAGEMENT INFECTION - COMPLEX in this encounter Results * TELEMETRY STRIPS-SCAN (10/18/2018 8:08 AM DIRECTOR OF MATERIALS MANAGEMENT) Narrative Performed At Ordered by an unspecified provider. * POC GLUCOSE (10/16/2018 3:54 PM DIRECTOR OF MATERIALS MANAGEMENT) Glucose, POC 115 (H) 70 - 100 MG/DL [facility] Performing Organization Address [facility] Phone Number [facility] [address] [place] [address] * POC GLUCOSE (10/16/2018 11:33 AM DIRECTOR OF MATERIALS MANAGEMENT) Glucose, POC 125 (H) 70 - 100 MG/DL [facility] Performing Organization Address [facility] Phone Number [facility] [address] [place] [address] * POC GLUCOSE (10/16/2018 7:23 AM DIRECTOR OF MATERIALS MANAGEMENT) Glucose, POC 106 (H) 70 - 100 MG/DL [facility] Performing Organization Address City/[facility]/Zipcode Phone Number [facility] [address] [place] [address] * BASIC METABOLIC PANEL (10/16/2018 4:42 AM DIRECTOR OF MATERIALS MANAGEMENT) Sodium 140 137 - 147 MMOL/L [facility] [...] for questions. Specimen Blood Performing Organization Address City/[facility]/Zipcode Phone Number MAIN LAB [address] [place] [address] * CBC (10/16/2018 4:42 AM DIRECTOR OF MATERIALS MANAGEMENT) White Blood Cells 5.3 4.5 - 11.0 [...] MAIN LAB Specimen Blood Performing Organization Address City/[facility]/Zipcode Phone Number MAIN LAB [address] [place] [address] * POC GLUCOSE (10/15/2018 8:18 PM DIRECTOR OF MATERIALS MANAGEMENT) Glucose, POC 119 (H) 70 - 100 MG/DL [facility] Performing Organization Address [facility] Phone Number [facility] [address] [place] [address] * POC GLUCOSE (10/15/2018 5:13 PM DIRECTOR OF MATERIALS MANAGEMENT) Glucose, POC 86 70 - 100 MG/DL [facility] Performing Organization Address [facility] Phone Number [facility] [address] [place] [address] * CULTURE-FUNGAL,OTHER (10/15/2018 4:49 PM DIRECTOR OF MATERIALS MANAGEMENT) Battery Name FUNGUS CULTURE [facility] Specimen Description TISSUE [facility] LEG SUPERFICIAL WOUND DEHISCENCE Special Requests NONE [facility] Culture NO GROWTH OF FUNGUS AT 4 WEEKS [facility] Report Status FINAL [facility] 11/15/2018 Specimen Tissue - Tissue Performing Organization Address [facility] Phone Number [facility] [address] [place] [address] * GRAM STAIN (10/15/2018 4:49 PM DIRECTOR OF MATERIALS MANAGEMENT) Battery Name GRAM STAIN [facility] Specimen Description TISSUE [facility] LEG SUPERFICIAL WOUND DEHISCENCE Special Requests NONE [facility] Gram Stain FEW [facility] NEUTROPHILS MANY GRAM POSITIVE COCCI MANY GRAM POSITIVE RODS RESEMBLING DIPHTHEROIDS Report Status FINAL [facility] 10/16/2018 Specimen Tissue - Tissue Performing Organization Address [facility] Phone Number [facility] [address] [place] [address] * CULTURE-WOUND/TISSUE/FLUID(AEROBIC ONLY)W/SENSITIVITY (10/15/2018 4:49 PM DIRECTOR OF MATERIALS MANAGEMENT ) Battery Name ROUTINE CULTURE [facility] MAIN [...] Specimen Tissue - Tissue Performing Organization Address [facility] Phone Number [facility] [address] [place] [address] * CULTURE-ANAEROBIC (10/15/2018 4:49 PM DIRECTOR OF MATERIALS MANAGEMENT) Battery Name ANAEROBE CULTURE [facility] Specimen Description TISSUE [facility] LEG SUPERFICIAL WOUND DEHISCENCE Special Requests NONE [facility] Culture Heavy growth [facility] PEPTONIPHILUS HAREI Heavy growth GEMELLA MORBILLORUM Report Status FINAL [facility] 10/21/2018 Specimen Tissue - Tissue Performing Organization Address [facility] Phone Number [facility] [address] [place] [address] * CULTURE-FUNGAL,OTHER (10/15/2018 4:48 PM DIRECTOR OF MATERIALS MANAGEMENT) Battery Name FUNGUS CULTURE [facility] Specimen Description FLOCKED SWAB [facility] B RIGHT LEG BELOW THE KNEE STUMP DEEP Special Requests NONE [facility] Culture NO GROWTH OF FUNGUS AT 4 WEEKS [facility] Report Status FINAL [facility] 11/15/2018 Specimen Tissue - Flocked Swab Performing Organization Address [facility] Phone Number [facility] [address] [place] [address] * GRAM STAIN (10/15/2018 4:48 PM DIRECTOR OF MATERIALS MANAGEMENT) Battery Name GRAM STAIN [facility] Specimen Description FLOCKED SWAB [facility] B RIGHT LEG BELOW THE KNEE STUMP DEEP Special Requests NONE [facility] Gram Stain NO NEUTROPHILS SEEN [facility] MODERATE GRAM POSITIVE COCCI FEW GRAM POSITIVE RODS Report Status FINAL [facility] 10/16/2018 Specimen Tissue - Flocked Swab Performing Organization Address [facility] Phone Number [facility] [address] [place] [address] * CULTURE-WOUND/TISSUE/FLUID(AEROBIC ONLY)W/SENSITIVITY (10/15/2018 4:48 PM DIRECTOR OF MATERIALS MANAGEMENT ) Battery Name ROUTINE CULTURE [facility] MAIN [...] Tissue - Flocked Swab Performing Organization Address [facility] Phone Number MAIN LAB [address] [place] [address] * CULTURE-ANAEROBIC (10/15/2018 4:48 PM DIRECTOR OF MATERIALS MANAGEMENT) Battery Name ANAEROBE CULTURE [facility] Specimen Description FLOCKED SWAB [facility] B RIGHT LEG BELOW THE KNEE STUMP DEEP Special Requests NONE [facility] Culture Moderate growth [facility] PEPTONIPHILUS HAREI Moderate growth GEMELLA MORBILLORUM Report Status FINAL [facility] 10/21/2018 Specimen Tissue - Flocked Swab Performing Organization Address [facility] Phone Number [facility] [address] [place] [address] * CULTURE-FUNGAL,OTHER (10/15/2018 4:41 PM DIRECTOR OF MATERIALS MANAGEMENT) Battery Name FUNGUS CULTURE [facility] Specimen Description FLOCKED SWAB [facility] A RIGHT LEG BELOW THE KNEE STUMP DEEP Special Requests NONE [facility] Culture NO GROWTH OF FUNGUS AT 4 WEEKS [facility] Report Status FINAL [facility] 11/15/2018 Specimen Tissue - Flocked Swab Performing Organization Address [facility] Phone Number [facility] [address] [place] [address] * GRAM STAIN (10/15/2018 4:41 PM DIRECTOR OF MATERIALS MANAGEMENT) Battery Name GRAM STAIN [facility] Specimen Description FLOCKED SWAB [facility] A RIGHT LEG BELOW THE KNEE STUMP DEEP Special Requests NONE [facility] Gram Stain NO NEUTROPHILS SEEN [facility] FEW GRAM POSITIVE COCCI Report Status FINAL [facility] 10/16/2018 Specimen Tissue - Flocked Swab Performing Organization Address [facility] Phone Number [facility] [address] [place] [address] * CULTURE-WOUND/TISSUE/FLUID(AEROBIC ONLY)W/SENSITIVITY (10/15/2018 4:41 PM DIRECTOR OF MATERIALS MANAGEMENT ) Battery Name ROUTINE CULTURE [facility] MAIN [...] Tissue - Flocked Swab Performing Organization Address [facility] Phone Number [facility] [address] [place] [address] * CULTURE-ANAEROBIC (10/15/2018 4:41 PM DIRECTOR OF MATERIALS MANAGEMENT) Battery Name ANAEROBE CULTURE [facility] Specimen Description FLOCKED SWAB [facility] A RIGHT LEG BELOW THE KNEE STUMP DEEP Special Requests NONE [facility] Culture Moderate growth [facility] PEPTONIPHILUS HAREI Moderate growth GEMELLA MORBILLORUM Report Status FINAL [facility] 10/21/2018 Specimen Tissue - Flocked Swab Performing Organization Address [facility] Phone Number [facility] [address] [place] [address] * POC GLUCOSE (10/15/2018 2:12 PM DIRECTOR OF MATERIALS MANAGEMENT) Glucose, POC 90 70 - 100 MG/DL [facility] Performing Organization Address [facility] Phone Number [facility] [address] [place] [address] * POC GLUCOSE (10/15/2018 2:06 PM DIRECTOR OF MATERIALS MANAGEMENT) Glucose, POC 91 70 - 100 MG/DL [facility] Performing Organization Address [facility] Phone Number MAIN LAB [address] [place] [address] in this encounter Visit Diagnoses Diagnosis Penetrating [...] hours from all sources., 10/15/2018 2:51 PM DIRECTOR OF MATERIALS MANAGEMENT 650 mg acetaminophen (TYLENOL) tablet 650 mg [...] hours from all sources., 10/16/2018 6:23 AM DIRECTOR OF MATERIALS MANAGEMENT 2 puffs albuterol (PROAIR HFA, VENTOLIN HFA, [...] be per RT policy., 10/16/2018 8:25 AM DIRECTOR OF MATERIALS MANAGEMENT 5 mg amLODIPine (NORVASC) tablet 5 mg Given 5 mg, Oral, DAILY, First dose on Thu10/16/18 at 0900, Until Discontinued, NURSING: Please educate patient and document: Do not give with grapefruit juice., 10/16/2018 8:24 AM DIRECTOR OF MATERIALS MANAGEMENT 81 mg aspirin EC tablet 81 mg Given 81 mg, Oral, DAILY, First dose on Thu10/16/18 at 0900, Until Discontinued 10/16/2018 8:25 AM DIRECTOR OF MATERIALS MANAGEMENT 40 mg atorvastatin (LIPITOR) tablet 40 mg Given 40 mg, Oral, DAILY, First dose on Thu10/16/18 at 0900, Until Discontinued budesonide/formoterol (SYMBICORT HFA) 160/4.5 mcg inhalation 2 puff 2 puff, Inhalation, RT TWICE DAILY, First dose on Thu10/15/18 at 2130, Until Discontinued, When administered by RT, will be per RT policy., 10/16/2018 5:02 AM DIRECTOR OF MATERIALS MANAGEMENT 1 g ceFAZolin (ANCEF) IVP 1 g Given 1 g, Intravenous, EVERY 8 HOURS, 2 doses, First dose on Thu10/15/18 at 2100, Last dose on Thu10/16/18 at 0500, First dose: 2100 IV PUSH -- RECONSTITUTE each 1 g vial by adding 10 mL 0.9% NACL, for patient <80 kg, 1 g Given 10/15/2018 8:39 PM DIRECTOR OF MATERIALS MANAGEMENT 10/16/2018 8:24 AM DIRECTOR OF MATERIALS MANAGEMENT 10 mg cetirizine (ZYRTEC) tablet 10 mg Given 10 mg, Oral, DAILY, First dose on Thu10/16/18 at 0900, Until Discontinued 10/16/2018 8:25 AM DIRECTOR OF MATERIALS MANAGEMENT 10 mg cyclobenzaprine (FLEXERIL) tablet 10 mg [...] 1940, Insomnia, Itching Injectable 10/15/2018 6:48 PM DIRECTOR OF MATERIALS MANAGEMENT 25 mcg fentaNYL citrate PF (SUBLIMAZE) Given injection 25 mcg 25 mcg, Intravenous, EVERY 5 MIN PRN, Starting Thu10/15/18 at 1702, Until Thu10/15/18 at 1852, Pain Injectable, For Pain Score < 4, Maximum total dose of 100 mcg Hold for RR < 10, PACU (only) 25 mcg Given 10/15/2018 6:39 PM DIRECTOR OF MATERIALS MANAGEMENT 25 mcg Given 10/15/2018 5:45 PM DIRECTOR OF MATERIALS MANAGEMENT 10/15/2018 2:51 PM DIRECTOR OF MATERIALS MANAGEMENT 600 mg gabapentin (NEURONTIN) capsule 600 mg Given 600 mg, Oral, ONCE, 1 dose, Thu10/15/18 at 1500, To be given pre-op with a sip of water immediately upon arrival to [facility] (>30 minutes prior to scheduled surgery time)., Pre-Op 10/16/2018 3:19 PM DIRECTOR OF MATERIALS MANAGEMENT 600 mg gabapentin (NEURONTIN) capsule 600 mg Given 600 mg, Oral, THREE TIMES DAILY, First dose on Thu10/15/18 at 2100, Until Discontinued 600 mg Given 10/16/2018 8:24 AM DIRECTOR OF MATERIALS MANAGEMENT 600 mg Given 10/15/2018 8:38 PM DIRECTOR OF MATERIALS MANAGEMENT 10/15/2018 2:51 PM DIRECTOR OF MATERIALS MANAGEMENT 600 mg ibuprofen (MOTRIN) tablet 600 mg Given 600 mg, Oral, ONCE, 1 dose, Thu10/15/18 at 1500, To be given pre-op with a sip of water immediately upon arrival to [facility] (>30 minutes prior to scheduled surgery time). [...] uncheck "Do not dispense", 10/16/2018 6:24 AM DIRECTOR OF MATERIALS MANAGEMENT 50 mcg levothyroxine (SYNTHROID) tablet 50 mcg Given 50 mcg, Oral, DAILY 30MIN BEFORE BREAKFAST, First dose on Thu10/16/18 at 0630, Until Discontinued, Give 1 hour before a meal. If patient is receiving tube feedings, hold tube feed 1hr before and 1hr after dose., 10/16/2018 8:24 AM DIRECTOR OF MATERIALS MANAGEMENT 25 mg metoprolol tartrate (LOPRESSOR) tablet Given 25 mg 25 mg, Oral, TWICE DAILY, First dose on 11/16/18 at 2100, Until Discontinued, Hold for systolic BP < 140, 25 mg Given 10/15/2018 8:38 PM DIRECTOR OF MATERIALS MANAGEMENT 10/15/2018 8:38 PM DIRECTOR OF MATERIALS MANAGEMENT 10 mg montelukast (SINGULAIR) tablet 10 mg Given 10 mg, Oral, AT BEDTIME DAILY, First dose on Thu10/15/18 at 2100, Until Discontinued 10/15/2018 5:28 PM DIRECTOR OF MATERIALS MANAGEMENT 10 mg oxyCODONE (ROXICODONE, OXY-IR) tablet Given 5-10 mg 5-10 mg, Oral, ONCE PRN, 1 dose, Starting Thu10/15/18 at 1702, Until Thu10/15/18 at 1728, Pain PO, For Pain Score <4, PACU (only) 10/16/2018 3:19 PM DIRECTOR OF MATERIALS MANAGEMENT 15 mg oxyCODONE (ROXICODONE, OXY-IR) tablet Given 5-15 mg 5-15 mg, Oral, EVERY 3 HOURS PRN, Starting Thu10/15/18 at 2012, Until 10/16/18 at 1939, Pain PO 15 mg Given 10/16/2018 11:43 AM DIRECTOR OF MATERIALS MANAGEMENT 15 mg Given 10/16/2018 8:29 AM DIRECTOR OF MATERIALS MANAGEMENT 10/16/2018 8:24 AM DIRECTOR OF MATERIALS MANAGEMENT [address] (PROTONIX) tablet 40 mg Given 40 mg, Oral, DAILY, First dose on Thu10/16/18 at 0900, Until Discontinued, Do not crush or chew tablet., 10/16/2018 6:25 AM DIRECTOR OF MATERIALS MANAGEMENT 1 capsule tiotropium (SPIRIVA) capsule for inhaler Given 1 capsule 1 capsule, Inhalation, RT DAILY, First dose on Thu10/16/18 at 0600, Until Discontinued, When administered by RT, will be per RT policy. NOTES: Administer immediately after opening blister foil pouch. Each capsule is meant to deliver 2 inhalations (1 cap=2 inhalations)., 10/15/2018 8:39 PM DIRECTOR OF MATERIALS MANAGEMENT 100 mg traZODone (DESYREL) tablet 100 mg Given 100 mg, Oral, AT BEDTIME DAILY, First dose on Thu10/15/18 at 2100, Until Discontinued 10/15/2018 4:53 PM DIRECTOR OF MATERIALS MANAGEMENT 1 g Leg, Lower Right vancomycin (VANCOCIN) injection Given INTRA-PROCEDURE MED, Starting Thu10/15/18 at 1653, Until Thu10/15/18 at 1708, Intra-op in this encounter
--- OUTSIDE RECORDS SUMMARY | 2018-11-26 17:08 | XMS REPORT | Encounter Summary ---
Author Author [facility] Organization [facility] Address Unknown Phone Unavailable Care Team Providers Care Technology Internship Name Role Phone SarbjitOsvaldo madden Unavailable Hermila Durbin MD Unavailable Rishi Cartwright MD Unavailable Donell Haque PA-C Unavailable Lizet Parsons RN Unavailable Unavailable Kristofer Dowling MD Unavailable Unavailable Harvinder Jj MD PCP lSade Merino DO 4 Encounter Details Care Team Description Date Type Department Pradip Jaramillo MD [address] [facility] [address] [place] [address] Other injury of unspecified body region, initial encounter 09/16/2018 Hospital Clinlab Encounter [facility] [address] fl [address] [place] [address] Social History Date Tobacco Use Types Packs/Day [...] LAB 09/18/2018 Specimen Swab Performing Organization Address [facility] Phone Number MAIN LAB [address] [place] [address] * CULTURE-FUNGAL,OTHER (09/16/2018 1:24 PM CDT) Battery Name FUNGUS CULTURE [facility] Specimen Description SWAB [facility] RIGHT BKA Special Requests NONE [facility] Culture NO GROWTH OF FUNGUS AT 4 WEEKS [facility] MAIN [facility] Report Status FINAL MAIN LAB 10/18/2018 Specimen Swab Performing Organization Address [facility] Phone Number MAIN LAB [address] [place] [address] * CULTURE-ANAEROBIC (09/16/2018 1:24 PM CDT) Battery Name ANAEROBE CULTURE [facility] Specimen Description SWAB MAIN LAB RIGHT BKA Special Requests NONE [facility] MAIN [facility] Culture NO ANAEROBES ISOLATED [facility]IN [facility] Report Status FINAL MAIN LAB 09/21/2018 Specimen Swab Performing Organization Address [facility] Phone Number MAIN LAB [address] [place] [address] in this encounter Visit Diagnoses Diagnosis Wound drainage Open wound(s) (multiple) of unspecified site(s), without mention of complication in this encounter
--- OUTSIDE RECORDS SUMMARY | 2018-11-26 17:08 | XMS REPORT | Encounter Summary ---
Author Author [facility] Organization [facility] Address Unknown Phone Unavailable Care Team Providers Care Chalk Extruding Machine Operator Name Role Phone SarbjitOsvaldo madden Unavailable Hermila Durbin MD Unavailable Rishi Cartwright MD Unavailable Donell Haque PA-C Unavailable Lizet Parsons RN Unavailable Unavailable Kristofer Dowling MD Unavailable Unavailable Harvinder Jj MD PCP Slade Merino DO 4 Encounter Details Care Team Description Date Type Department Pradip Jaramillo MD [address] [facility] [address] [place] [address] Penetrating wound (Primary Dx) 10/08/2018 Prep for Case [facility] - [facility] [address] [place] [address] Social History Date Tobacco Use [...]
--- OUTSIDE RECORDS SUMMARY | 2018-11-26 17:08 | XMS REPORT | Encounter Summary ---
Author Author [facility] Organization [facility] Address Unknown Phone Unavailable Care Team Providers Care Carpenter Refrigerator Name Role Phone SarbjitOsvaldo madden Unavailable Hermila Durbin MD Unavailable Rishi Cartwright MD Unavailable Donell Haque PA-C Unavailable Lizet Parsons RN Unavailable Unavailable Kristofer Dowling MD Unavailable Unavailable Harvinder Jj MD PCP Slade Merino DO 4 Reason for Visit * Reason Comments Medication Refill Encounter Details Care Team Description Date Type Department Pradip Jaramillo MD [address] [facility] [address] [place] [address] 09/21/2018 Refill [facility] - [facility] [address] [place] [address] Social History Date Tobacco Use [...]
--- OUTSIDE RECORDS SUMMARY | 2018-11-26 17:09 | XMS REPORT | Encounter Summary ---
Author Author [facility] Organization [facility] Address Unknown Phone Unavailable Care Team Providers Care Corporate Technical Recruiter Name Role Phone SarbjitmaryanneOsvaldo DO Unavailable Hermila Durbin MD Unavailable Rishi Cartwright MD Unavailable Donell Haque PA-C Unavailable Lizet Parsons RN Unavailable Unavailable Kristofer Dowling MD Unavailable Unavailable Harvinder Jj MD PCP Slade Merino DO 4 Reason for Visit * Reason Comments Post Operative Visit Encounter Details Care Team Description Date Type Department Pradip Jaramillo MD [address] [facility] [address] [place] [address] S/P below knee amputation, right (HCC) (Primary Dx) 09/02/2018 Office Visit [facility] - [facility] [address] [place] [address] Social History Date Tobacco Use [...]
--- OUTSIDE RECORDS SUMMARY | 2018-11-26 17:09 | XMS REPORT | Encounter Summary ---
Author Author [facility] Organization [facility] Address Unknown Phone Unavailable Care Team Providers Care Gender Studies Professor Name Role Phone Osvaldo Palafox DO Unavailable Hermila Durbin MD Unavailable Rishi Cartwrigth MD Unavailable Donell Haque PA-C Unavailable Lizet Parsons RN Unavailable Unavailable Kristofer Dowling MD Unavailable Unavailable Harvinder Jj MD PCP Slade Merino DO 4 Reason for Referral * Consult, Test & Treat (Routine) Referred By Contact Referred To Contact Status Reason Specialty Diagnoses / [place] [address] [place] [address] [address] [place] [address] Closed Specialty Services Diagnoses Required Wound drainage Postoperative wound dehiscence, initial encounter Reason for Visit * Reason Comments Post-op right BKA Encounter Details Care Team Description Date [place] [address] [place] [address] [place] [address] [place], [place] [id number] Wound drainage (Primary Dx); Postoperative wound dehiscence, initial encounter 09/16/2018 Office Visit [facility] [address] [place] [address] Social History Date Tobacco Use [...] LAB 09/18/2018 Specimen Swab Performing Organization Address [facility] [place] Phone Number MAIN LAB [address] [place] [address] * CULTURE-FUNGAL,OTHER (09/16/2018 1:24 PM CDT) Battery Name FUNGUS CULTURE [facility] Specimen Description SWAB [facility] RIGHT BKA Special Requests NONE [facility] MAIN [facility] Culture NO GROWTH OF FUNGUS AT 4 WEEKS [facility] MAIN [facility] Report Status FINAL MAIN LAB 10/18/2018 Specimen Swab Performing Organization Address [facility] [place] Phone Number MAIN LAB [address] [place] [address] * CULTURE-ANAEROBIC (09/16/2018 1:24 PM CDT) Battery Name ANAEROBE CULTURE [facility] Specimen Description SWAB [facility] MAIN [facility] RIGHT BKA Special Requests NONE [facility] MAIN LAB Culture NO ANAEROBES ISOLATED [facility] MAIN [facility] Report Status FINAL MAIN LAB 09/21/2018 Specimen Swab Performing Organization Address [facility] [place] Phone Number MAIN LAB [address] [place] [address] in this encounter Visit Diagnoses Diagnosis Wound drainage - Primary Open wound(s) (multiple) of unspecified site(s), without mention of complication Postoperative wound dehiscence, initial encounter in this encounter
[2018-11-26 17:10] VITALS: BP 126/87
[2018-11-26] MEDS ORDERED: RT-ALBUTEROL/IPRATROPIUM 3 ML (DUONEB) VIAL INH PRN (17:30)
[2018-11-26] MEDS: NS IV 1000 ML 1,000 ML IV SCH (17:58)
--- OUTSIDE RECORDS SUMMARY | 2018-11-26 18:08 | XMS REPORT | Continuity of Care Document ---
Author Author [facility] Address Unknown Phone Unavailable Allergies Active [...] Drug Allergy N/A N/A 2014 Yes tramadol [id number] Drug Allergy Mild N/V 07/23/2018 Yes aspirin [id number] Drug Allergy Mild Nausea 07/30/2018 Yes codeine [id number] Drug Allergy Mild Nausea 07/30/2018 Yes Penicillins [id number] Drug Allergy Mild Hives 07/30/2018 Yes amlodipine besylate [id number] Drug Allergy Unknown N/A 07/30/2018 Yes benazepril HCl [id number] Drug Allergy Unknown N/A 07/30/2018 Yes Umgrxau-Rzz-Wap Reductase Inhibitor [id number] Drug Allergy Unknown N/A Medications There is [...] - Uncomplicated, Uncontrolled 06/27/2008 KARYN OLVERA, BYRON Brnuer 250.02 Diabetes Mellitus Type Ii - Uncomplicated, [...] Type Ii - Uncomplicated, Uncontrolled 06/27/2008 NOEMY PRAKSAH LADONNA K 250.02 Diabetes Mellitus Type Ii - Uncomplicated, Uncontrolled 06/27/2008 NOEMY PRAKASH LADONNA K 250.02 Diabetes Mellitus Type Ii - Uncomplicated, Uncontrolled 06/27/2008 NOEMY PRAKASH LADONNA K 250.02 Diabetes Mellitus Type Ii - Uncomplicated, Uncontrolled 06/27/2008 MADMaxine TREADLE CUT 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, ETELVINA L 250.02 Diabetes Mellitus Type Ii - Uncomplicated, Uncontrolled 06/27/2008 MADL TREADLE CUT 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, ETELVINA L 250.02 Diabetes Mellitus Type Ii - Uncomplicated, Uncontrolled 06/27/2008 MADL TREADLE CUT 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, ETELVINA L 250.02 Diabetes Mellitus Type Ii - Uncomplicated, Uncontrolled 06/27/2008 SALGUERO DO LADONNA K 250.02 Diabetes Mellitus Type Ii - Uncomplicated, Uncontrolled 06/27/2008 NOEMY PRAKASH LADONNA K 250.02 Diabetes Mellitus Type Ii - Uncomplicated, Uncontrolled 06/27/2008 MADMaxine TREADLE CUT 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, ETELVINA L 250.02 Diabetes Mellitus Type Ii - Uncomplicated, Uncontrolled 06/27/2008 MADL TREADLE CUT 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, ETELVINA L 250.02 Diabetes Mellitus Type Ii - Uncomplicated, Uncontrolled 06/27/2008 MADL TREADLE CUT 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, ETELVINA L 250.02 Diabetes Mellitus Type Ii - Uncomplicated, Uncontrolled 06/27/2008 MADL TREADLE CUT 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, ETELVINA L 250.02 Diabetes Mellitus Type Ii - Uncomplicated, Uncontrolled 06/27/2008 MADL TREADLE CUT 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, ETELVINA L 250.02 Diabetes Mellitus Type Ii - Uncomplicated, Uncontrolled 06/27/2008 MADL TREADLE CUT 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, ETELVINA L 250.02 Diabetes Mellitus Type Ii - Uncomplicated, Uncontrolled 06/27/2008 MADL TREADLE CUT 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, ETELVINA L 250.02 Diabetes Mellitus Type Ii - Uncomplicated, Uncontrolled 06/27/2008 SALGUERO DO, LADONNA K 250.02 Diabetes Mellitus Type Ii - Uncomplicated, Uncontrolled 06/27/2008 SALGUERO DO, LADONNA K 250.02 Diabetes Mellitus Type Ii - Uncomplicated, Uncontrolled 06/27/2008 MADL TREADLE CUT 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, ETELVINA L 250.02 Diabetes Mellitus Type Ii - Uncomplicated, Uncontrolled 06/27/2008 SALGUERO DO, LADONNA K 250.02 Diabetes Mellitus Type Ii - Uncomplicated, Uncontrolled 06/27/2008 MADL TREADLE CUT 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, ETELVINA L 250.02 Diabetes Mellitus Type [...] K 401.1 ESSENTIAL HYPERTENSION BENIGN 09/27/2008 MADL TREADLE CUT 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, ETELVINA L 250.00 DIABETES MELLITUS 09/27/2008 MADL TREADLE CUT 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, ETELVINA L 401.1 ESSENTIAL HYPERTENSION BENIGN 09/27/2008 MADL TREADLE CUT 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, ETELVINA L 250.00 DIABETES MELLITUS 09/27/2008 MADL TREADLE CUT 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, ETELVINA L 401.1 ESSENTIAL HYPERTENSION BENIGN 09/27/2008 MADL TREADLE CUT 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, ETELVINA L 250.00 DIABETES MELLITUS 09/27/2008 MADL TREADLE CUT 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, ETELVINA L 401.1 ESSENTIAL HYPERTENSION BENIGN 09/27/2008 SALGUERO DO, LADONNA K 250.00 DIABETES MELLITUS 09/27/2008 SALGUERO DO, LADONNA K 401.1 ESSENTIAL HYPERTENSION BENIGN 09/27/2008 SALGUERO DO, LADONNA K 250.00 DIABETES MELLITUS 09/27/2008 SALGUERO DO, LADONNA K 401.1 ESSENTIAL HYPERTENSION BENIGN 09/27/2008 MADL TREADLE CUT 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, ETELVINA L 250.00 DIABETES MELLITUS 09/27/2008 MADL TREADLE CUT 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, ETELVINA L 401.1 ESSENTIAL HYPERTENSION BENIGN 09/27/2008 MADL TREADLE CUT 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, ETELVINA L 250.00 DIABETES MELLITUS 09/27/2008 MADL TREADLE CUT 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, ETELVINA L 401.1 ESSENTIAL HYPERTENSION BENIGN 09/27/2008 MADL TREADLE CUT 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, ETELVINA L 250.00 DIABETES MELLITUS 09/27/2008 MADL TREADLE CUT 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, ETELVINA L 401.1 ESSENTIAL HYPERTENSION BENIGN 09/27/2008 MADL TREADLE CUT 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, ETELVINA L 250.00 DIABETES MELLITUS 09/27/2008 MADL TREADLE CUT 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, ETELVINA L 401.1 ESSENTIAL HYPERTENSION BENIGN 09/27/2008 MADL TREADLE CUT 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, ETELVINA L 250.00 DIABETES MELLITUS 09/27/2008 MADL TREADLE CUT 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, ETELVINA L 401.1 ESSENTIAL HYPERTENSION BENIGN 09/27/2008 MADL TREADLE CUT 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, ETELVINA L 250.00 DIABETES MELLITUS 09/27/2008 MADL TREADLE CUT 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, ETELVINA L 401.1 ESSENTIAL HYPERTENSION BENIGN 09/27/2008 MADL TREADLE CUT 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, ETELVINA L 250.00 DIABETES MELLITUS 09/27/2008 MADL TREADLE CUT 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, ETELVINA L 401.1 ESSENTIAL HYPERTENSION BENIGN 09/27/2008 SALGUERO DO, LADONNA K 250.00 DIABETES MELLITUS 09/27/2008 SALGUERO DO, LADONNA K 401.1 ESSENTIAL HYPERTENSION BENIGN 09/27/2008 SALGUERO DO, LADONNA K 250.00 DIABETES MELLITUS 09/27/2008 SALGUERO DO, LADONNA K 401.1 ESSENTIAL HYPERTENSION BENIGN 09/27/2008 MADL TREADLE CUT 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, ETELVINA L 250.00 DIABETES MELLITUS 09/27/2008 MADL TREADLE CUT 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, ETELVINA L 401.1 ESSENTIAL HYPERTENSION BENIGN 09/27/2008 SALGUERO DO, LADONNA K 250.00 DIABETES MELLITUS 09/27/2008 TERE SALGUERO DOA K 401.1 ESSENTIAL HYPERTENSION BENIGN 09/27/2008 MADL TREADLE CUT 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, ETELVINA L 250.00 DIABETES MELLITUS 09/27/2008 MADL TREADLE CUT 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, ETELVINA L 401.1 ESSENTIAL HYPERTENSION BENIGN [...] In Joint Involving Lower Leg 11/01/2008 MADL TREADLE CUT 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, ETELVINA L 719.46 Pain In Joint Involving Lower Leg 11/01/2008 MADL TREADLE CUT 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, ETELVINA L 719.46 Pain In Joint Involving Lower Leg 11/01/2008 MADL TREADLE CUT 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, ETELVINA L 719.46 Pain In Joint Involving Lower Leg 11/01/2008 NOEMY DOLADONNA K 719.46 Pain In Joint Involving Lower Leg 11/01/2008 LADONNA SALGUERO DO K 719.46 Pain In Joint Involving Lower Leg 11/01/2008 MADL TREADLE CUT 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, ETELVINA L 719.46 Pain In Joint Involving Lower Leg 11/01/2008 MADL TREADLE CUT 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, ETELVINA L 719.46 Pain In Joint Involving Lower Leg 11/01/2008 MADL TREADLE CUT 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, ETELVINA L 719.46 Pain In Joint Involving Lower Leg 11/01/2008 MADL TREADLE CUT 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, ETELVINA L 719.46 Pain In Joint Involving Lower Leg 11/01/2008 MADL TREADLE CUT 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, ETELVINA L 719.46 Pain In Joint Involving Lower Leg 11/01/2008 MADL TREADLE CUT 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, ETELVINA L 719.46 Pain In Joint Involving Lower Leg 11/01/2008 MADL TREADLE CUT 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, ETELVINA L 719.46 Pain In Joint Involving Lower Leg 11/01/2008 NOEMY DOLADONNA K 719.46 Pain In Joint Involving Lower Leg 11/01/2008 LADONNA SALGUERO DO K 719.46 Pain In Joint Involving Lower Leg 11/01/2008 MADL TREADLE CUT 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, ETELVINA L 719.46 Pain In Joint Involving Lower Leg 11/01/2008 NOEMY DOLADONNA K 719.46 Pain In Joint Involving Lower Leg 11/01/2008 MADL TREADLE CUT 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, ETELVINA L 719.46 Pain In Joint [...] K 728.85 Spasm Of Muscle 12/12/2008 MADL TREADLE CUT 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, ETELVINA L 496 CHRONIC OBSTRUCTIVE PULMONARY DISEASE 12/12/2008 MADL TREADLE CUT 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, ETELVINA L 728.85 Spasm Of Muscle 12/12/2008 MADL TREADLE CUT 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, ETELVINA L 496 CHRONIC OBSTRUCTIVE PULMONARY DISEASE 12/12/2008 MADL TREADLE CUT 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, ETELVINA L 728.85 Spasm Of Muscle 12/12/2008 MADL TREADLE CUT 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, ETELVINA L 496 CHRONIC OBSTRUCTIVE PULMONARY DISEASE 12/12/2008 MADL TREADLE CUT 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, ETELVINA L 728.85 Spasm Of Muscle 12/12/2008 SALGUERO DO, LADONNA K 496 CHRONIC OBSTRUCTIVE PULMONARY DISEASE 12/12/2008 SALGUERO DO, LADONNA K 728.85 Spasm Of Muscle 12/12/2008 SALGUERO DO, LADONNA K 496 CHRONIC OBSTRUCTIVE PULMONARY DISEASE 12/12/2008 SALGUERO DO, LADONNA K 728.85 Spasm Of Muscle 12/12/2008 MADL TREADLE CUT 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, ETELVINA L 496 CHRONIC OBSTRUCTIVE PULMONARY DISEASE 12/12/2008 MADL TREADLE CUT 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, ETELVINA L 728.85 Spasm Of Muscle 12/12/2008 MADL TREADLE CUT 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, ETELVINA L 496 CHRONIC OBSTRUCTIVE PULMONARY DISEASE 12/12/2008 MADL TREADLE CUT 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, ETELVINA L 728.85 Spasm Of Muscle 12/12/2008 MADL TREADLE CUT 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, ETELVINA L 496 CHRONIC OBSTRUCTIVE PULMONARY DISEASE 12/12/2008 MADL TREADLE CUT 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, ETELVINA L 728.85 Spasm Of Muscle 12/12/2008 MADL TREADLE CUT 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, ETELVINA L 496 CHRONIC OBSTRUCTIVE PULMONARY DISEASE 12/12/2008 MADL TREADLE CUT 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, ETELVINA L 728.85 Spasm Of Muscle 12/12/2008 MADL TREADLE CUT 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, ETELVINA L 496 CHRONIC OBSTRUCTIVE PULMONARY DISEASE 12/12/2008 MADL TREADLE CUT 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, ETELVINA L 728.85 Spasm Of Muscle 12/12/2008 MADL TREADLE CUT 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, ETELVINA L 496 CHRONIC OBSTRUCTIVE PULMONARY DISEASE 12/12/2008 MADL TREADLE CUT 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, ETELVINA L 728.85 Spasm Of Muscle 12/12/2008 MADL TREADLE CUT 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, ETELVINA L 496 CHRONIC OBSTRUCTIVE PULMONARY DISEASE 12/12/2008 MADL TREADLE CUT 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, ETELVINA L 728.85 Spasm Of Muscle 12/12/2008 SALGUERO DO, LADONNA K 496 CHRONIC OBSTRUCTIVE PULMONARY DISEASE 12/12/2008 SALGUERO DO, LADONNA K 728.85 Spasm Of Muscle 12/12/2008 SALGUERO DO, LADONNA K 496 CHRONIC OBSTRUCTIVE PULMONARY DISEASE 12/12/2008 SALGUERO DO, LADONNA K 728.85 Spasm Of Muscle 12/12/2008 MADL TREADLE CUT 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, ETELVINA L 496 CHRONIC OBSTRUCTIVE PULMONARY DISEASE 12/12/2008 MADL TREADLE CUT 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, ETELVINA L 728.85 Spasm Of Muscle 12/12/2008 SALGUERO DO, LADONNA K 496 CHRONIC OBSTRUCTIVE PULMONARY DISEASE 12/12/2008 SALGUERO DO, LADONNA K 728.85 Spasm Of Muscle 12/12/2008 MADL TREADLE CUT 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, ETELVINA L 496 CHRONIC OBSTRUCTIVE PULMONARY DISEASE 12/12/2008 MADL TREADLE CUT 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, ETELVINA L 728.85 Spasm Of Muscle [...] 786.50 Chest Pain Or Discomfort 01/11/2009 MADL TREADLE CUT 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, ETELVINA L 786.50 Chest Pain Or Discomfort 01/11/2009 MADL TREADLE CUT 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, ETELVINA L 786.50 Chest Pain Or Discomfort 01/11/2009 MADL TREADLE CUT 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, ETELVINA L 786.50 Chest Pain Or Discomfort 01/11/2009 SALGUERO DO, LADONNA K 786.50 Chest Pain Or Discomfort 01/11/2009 SALGUERO DO, LADONNA K 786.50 Chest Pain Or Discomfort 01/11/2009 MADL TREADLE CUT 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, ETELVINA L 786.50 Chest Pain Or Discomfort 01/11/2009 MADL TREADLE CUT 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, ETELVINA L 786.50 Chest Pain Or Discomfort 01/11/2009 MADL TREADLE CUT 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, ETELVINA L 786.50 Chest Pain Or Discomfort 01/11/2009 MADL TREADLE CUT 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, ETELVINA L 786.50 Chest Pain Or Discomfort 01/11/2009 MADL TREADLE CUT 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, ETELVINA L 786.50 Chest Pain Or Discomfort 01/11/2009 MADL TREADLE CUT 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, ETELVINA L 786.50 Chest Pain Or Discomfort 01/11/2009 MADL TREADLE CUT 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, ETELVINA L 786.50 Chest Pain Or Discomfort 01/11/2009 SALGUERO DO, LADONNA K 786.50 Chest Pain Or Discomfort 01/11/2009 SALGUERO DO, LADONNA K 786.50 Chest Pain Or Discomfort 01/11/2009 MADL TREADLE CUT 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, ETELVINA L 786.50 Chest Pain Or Discomfort 01/11/2009 SALGUERO DO, LADONNA K 786.50 Chest Pain Or Discomfort 01/11/2009 MADL TREADLE CUT 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, ETELVINA L 786.50 Chest Pain Or Discomfort 02/20/2009 MORGAN TREADLE CUT 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, LAURIE S 709.9 Dermatology - Skin Condition 02/20/2009 709.9 Dermatology - Skin Condition 02/20/2009 MORGAN TREADLE CUT 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, LAURIE S 709.9 Dermatology - Skin Condition 02/20/2009 MORGAN TREADLE CUT 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, LAURIE S 709.9 Dermatology - Skin [...] 709.9 Dermatology - Skin Condition 02/20/2009 MADL TREADLE CUT 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, ETELVINA L 709.9 Dermatology - Skin Condition 02/20/2009 MADL TREADLE CUT 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, ETELVINA L 709.9 Dermatology - Skin Condition 02/20/2009 MADL TREADLE CUT 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, ETELVINA L 709.9 Dermatology - Skin Condition 02/20/2009 SALGUERO DO, LADONNA K 709.9 Dermatology - Skin Condition 02/20/2009 SALGUERO DO, LADONNA K 709.9 Dermatology - Skin Condition 02/20/2009 MADL TREADLE CUT 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, ETELVINA L 709.9 Dermatology - Skin Condition 02/20/2009 MADL TREADLE CUT 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, ETELVINA L 709.9 Dermatology - Skin Condition 02/20/2009 MADL TREADLE CUT 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, ETELVINA L 709.9 Dermatology - Skin Condition 02/20/2009 MADL TREADLE CUT 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, ETELVINA L 709.9 Dermatology - Skin Condition 02/20/2009 MADL TREADLE CUT 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, ETELVINA L 709.9 Dermatology - Skin Condition 02/20/2009 MADL TREADLE CUT 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, ETELVINA L 709.9 Dermatology - Skin Condition 02/20/2009 MADL TREADLE CUT 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, ETELVINA L 709.9 Dermatology - Skin Condition 02/20/2009 SALGUERO DO, LADONNA K 709.9 Dermatology - Skin Condition 02/20/2009 SALGUERO DO, LADONNA K 709.9 Dermatology - Skin Condition 02/20/2009 MADL TREADLE CUT 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, ETELVINA L 709.9 Dermatology - Skin Condition 02/20/2009 SALGUERO DO, LADONNA K 709.9 Dermatology - Skin Condition 02/20/2009 MADL TREADLE CUT 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, ETELVINA L 709.9 Dermatology - Skin [...] Disorders Of Function Of Stomach 04/05/2009 MADL TREADLE CUT 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, ETELVINA L 536.8 Dyspepsia And Other Specified Disorders Of Function Of Stomach 04/05/2009 MADL TREADLE CUT 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, ETELVINA L 536.8 Dyspepsia And Other Specified Disorders Of Function Of Stomach 04/05/2009 MADL TREADLE CUT 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, ETELVINA L 536.8 Dyspepsia And Other Specified Disorders Of Function Of Stomach 04/05/2009 SALGUERO DO, LADONNA K 536.8 Dyspepsia And Other Specified Disorders Of Function Of Stomach 04/05/2009 SALGUERO DO, LADONNA K 536.8 Dyspepsia And Other Specified Disorders Of Function Of Stomach 04/05/2009 MADL TREADLE CUT 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 ETELVINA L 536.8 Dyspepsia And Other Specified Disorders Of Function Of Stomach 04/05/2009 MADL TREADLE CUT 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, ETELVINA L 536.8 Dyspepsia And Other Specified Disorders Of Function Of Stomach 04/05/2009 MADL TREADLE CUT 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, ETELVINA L 536.8 Dyspepsia And Other Specified Disorders Of Function Of Stomach 04/05/2009 MADL TREADLE CUT 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, ETELVINA L 536.8 Dyspepsia And Other Specified Disorders Of Function Of Stomach 04/05/2009 MADL TREADLE CUT 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, ETELVINA L 536.8 Dyspepsia And Other Specified Disorders Of Function Of Stomach 04/05/2009 MADL TREADLE CUT 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, ETELVINA L 536.8 Dyspepsia And Other Specified Disorders Of Function Of Stomach 04/05/2009 MADL TREADLE CUT 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, ETELVINA L 536.8 Dyspepsia And Other Specified Disorders Of Function Of Stomach 04/05/2009 SALGUERO DO, LADONNA K 536.8 Dyspepsia And Other Specified Disorders Of Function Of Stomach 04/05/2009 SALGUERO DO, LADONNA K 536.8 Dyspepsia And Other Specified Disorders Of Function Of Stomach 04/05/2009 MADL TREADLE CUT 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, ETELVINA L 536.8 Dyspepsia And Other Specified Disorders Of Function Of Stomach 04/05/2009 SALGUERO DO, LADONNA K 536.8 Dyspepsia And Other Specified Disorders Of Function Of Stomach 04/05/2009 MADL TREADLE CUT 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, ETELVINA L 536.8 Dyspepsia And Other [...] DO LADONNA K 787.02 Nausea 05/09/2009 BYRON BSOS MD 327.52 Organic Sleep-related Leg Cramps 05/09/2009 [...] DO, LADONNA K 787.02 Nausea 05/09/2009 MADL TREADLE CUT 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, ETELVINA L 327.52 Organic Sleep-related Leg Cramps 05/09/2009 MADL TREADLE CUT 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, ETELVINA L 787.02 Nausea 05/09/2009 MADL TREADLE CUT 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, ETELVINA L 327.52 Organic Sleep-related Leg Cramps 05/09/2009 MADL TREADLE CUT 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, ETELVINA L 787.02 Nausea 05/09/2009 MADL TREADLE CUT 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, ETELVINA L 327.52 Organic Sleep-related Leg Cramps 05/09/2009 MADL TREADLE CUT 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, ETELVINA L 787.02 Nausea 05/09/2009 SALGUERO DO, LADONNA K 327.52 Organic Sleep-related Leg Cramps 05/09/2009 SALGUERO DO, LADONNA K 787.02 Nausea 05/09/2009 SALGUERO DO, LADONNA K 327.52 Organic Sleep-related Leg Cramps 05/09/2009 SALGUERO DO, LADONNA K 787.02 Nausea 05/09/2009 MADL TREADLE CUT 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, ETELVINA L 327.52 Organic Sleep-related Leg Cramps 05/09/2009 MADL TREADLE CUT 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, ETELVINA L 787.02 Nausea 05/09/2009 MADL TREADLE CUT 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, ETELVINA L 327.52 Organic Sleep-related Leg Cramps 05/09/2009 MADL TREADLE CUT 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, ETELVINA L 787.02 Nausea 05/09/2009 MADL TREADLE CUT 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, ETELVINA L 327.52 Organic Sleep-related Leg Cramps 05/09/2009 MADL TREADLE CUT 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, ETELVINA L 787.02 Nausea 05/09/2009 MADL TREADLE CUT 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, ETELVINA L 327.52 Organic Sleep-related Leg Cramps 05/09/2009 MADL TREADLE CUT 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, ETELVINA L 787.02 Nausea 05/09/2009 MADL TREADLE CUT 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, ETELVINA L 327.52 Organic Sleep-related Leg Cramps 05/09/2009 MADL TREADLE CUT 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, ETELVINA L 787.02 Nausea 05/09/2009 MADL TREADLE CUT 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, ETELVINA L 327.52 Organic Sleep-related Leg Cramps 05/09/2009 MADL TREADLE CUT 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, ETELVINA L 787.02 Nausea 05/09/2009 MADL TREADLE CUT 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, ETELVINA L 327.52 Organic Sleep-related Leg Cramps 05/09/2009 MADL TREADLE CUT 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, ETELVINA L 787.02 Nausea 05/09/2009 SALGUERO DO, LADONNA K 327.52 Organic Sleep-related Leg Cramps 05/09/2009 SALGUERO DO, LADONNA K 787.02 Nausea 05/09/2009 SALGUERO DO, LADONNA K 327.52 Organic Sleep-related Leg Cramps 05/09/2009 SALGUERO DO, LADONNA K 787.02 Nausea 05/09/2009 MADL TREADLE CUT 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, ETELVINA L 327.52 Organic Sleep-related Leg Cramps 05/09/2009 MADL TREADLE CUT 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, ETELVINA L 787.02 Nausea 05/09/2009 SALGUERO DO, LADONNA K 327.52 Organic Sleep-related Leg Cramps 05/09/2009 SALGUERO DO, LADONNA K 787.02 Nausea 05/09/2009 MADL TREADLE CUT 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, ETELVINA L 327.52 Organic Sleep-related Leg Cramps 05/09/2009 MADL TREADLE CUT 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, ETELVINA L 787.02 Nausea 07/02/2009 LAURIE [...] K 780.4 Dizziness And Giddiness 07/02/2009 MADL TREADLE CUT 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, ETELVINA L 465.9 Acute Upper Respiratory Infections Of Unspecified Site 07/02/2009 MADL TREADLE CUT 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, ETELVINA L 780.4 Dizziness And Giddiness 07/02/2009 MADL TREADLE CUT 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, ETELVINA L 465.9 Acute Upper Respiratory Infections Of Unspecified Site 07/02/2009 MADL TREADLE CUT 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, ETELVINA L 780.4 Dizziness And Giddiness 07/02/2009 MADL TREADLE CUT 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, ETELVINA L 465.9 Acute Upper Respiratory Infections Of Unspecified Site 07/02/2009 MADL TREADLE CUT 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, ETELVINA L 780.4 Dizziness And Giddiness 07/02/2009 SALGUERO DO, LADONNA K 465.9 Acute Upper Respiratory Infections Of Unspecified Site 07/02/2009 SALGUERO DO, LADONNA K 780.4 Dizziness And Giddiness 07/02/2009 SALGUERO DO, LADONNA K 465.9 Acute Upper Respiratory Infections Of Unspecified Site 07/02/2009 SALGUERO DO, LADONNA K 780.4 Dizziness And Giddiness 07/02/2009 MADL TREADLE CUT 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, ETELVINA L 465.9 Acute Upper Respiratory Infections Of Unspecified Site 07/02/2009 MADL TREADLE CUT 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, ETELVINA L 780.4 Dizziness And Giddiness 07/02/2009 MADL TREADLE CUT 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, ETELVINA L 465.9 Acute Upper Respiratory Infections Of Unspecified Site 07/02/2009 MADL TREADLE CUT 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, ETELVINA L 780.4 Dizziness And Giddiness 07/02/2009 MADL TREADLE CUT 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, ETELVINA L 465.9 Acute Upper Respiratory Infections Of Unspecified Site 07/02/2009 MADL TREADLE CUT 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, ETELVINA L 780.4 Dizziness And Giddiness 07/02/2009 MADL TREADLE CUT 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, ETELVINA L 465.9 Acute Upper Respiratory Infections Of Unspecified Site 07/02/2009 MADL TREADLE CUT 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, ETELVINA L 780.4 Dizziness And Giddiness 07/02/2009 MADL TREADLE CUT 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, ETELVINA L 465.9 Acute Upper Respiratory Infections Of Unspecified Site 07/02/2009 MADL TREADLE CUT 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, ETELVINA L 780.4 Dizziness And Giddiness 07/02/2009 MADL TREADLE CUT 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, ETELVINA L 465.9 Acute Upper Respiratory Infections Of Unspecified Site 07/02/2009 MADL TREADLE CUT 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, ETELVINA L 780.4 Dizziness And Giddiness 07/02/2009 MADL TREADLE CUT 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, ETELVINA L 465.9 Acute Upper Respiratory Infections Of Unspecified Site 07/02/2009 MADL TREADLE CUT 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, ETELVINA L 780.4 Dizziness And Giddiness 07/02/2009 SALGUERO DO, LADONNA K 465.9 Acute Upper Respiratory Infections Of Unspecified Site 07/02/2009 SALGUERO DO, LADONNA K 780.4 Dizziness And Giddiness 07/02/2009 SALGUERO DO, LADONNA K 465.9 Acute Upper Respiratory Infections Of Unspecified Site 07/02/2009 SALGUERO DO, LADONNA K 780.4 Dizziness And Giddiness 07/02/2009 MADL TREADLE CUT 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, ETELVINA L 465.9 Acute Upper Respiratory Infections Of Unspecified Site 07/02/2009 MADL TREADLE CUT 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, ETELVINA L 780.4 Dizziness And Giddiness 07/02/2009 SALGUERO DO, LADONNA K 465.9 Acute Upper Respiratory Infections Of Unspecified Site 07/02/2009 SALGUERO DO, LADONNA K 780.4 Dizziness And Giddiness 07/02/2009 MADL TREADLE CUT 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, ETELVINA L 465.9 Acute Upper Respiratory Infections Of Unspecified Site 07/02/2009 MADL TREADLE CUT 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, ETELVINA L 780.4 Dizziness And Giddiness 08/10/2009 MORGAN TREADLE CUT 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, LAURIE S 780.52 INSOMNIA UNSPECIFIED 08/10/2009 MORGAN TREADLE CUT 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, LAURIE S 783.1 Abnormal Weight Gain 08/10/2009 780.52 Insomnia Unspecified 08/10/2009 783.1 Abnormal Weight Gain 08/10/2009 MORGAN TREADLE CUT 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, LAURIE S 780.52 Insomnia Unspecified 08/10/2009 MORGAN TREADLE CUT 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, LAURIE S 783.1 Abnormal Weight Gain 08/10/2009 MORGAN TREADLE CUT 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, LAURIE S 780.52 Insomnia Unspecified 08/10/2009 MORGAN TREADLE CUT 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, LAURIE S 783.1 Abnormal Weight Gain [...] K 783.1 Abnormal Weight Gain 08/10/2009 MADL TREADLE CUT 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, ETELVINA L 780.52 Insomnia Unspecified 08/10/2009 MADL TREADLE CUT 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, ETELVINA L 783.1 Abnormal Weight Gain 08/10/2009 MADL TREADLE CUT 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, ETELVINA L 780.52 Insomnia Unspecified 08/10/2009 MADL TREADLE CUT 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, ETELVINA L 783.1 Abnormal Weight Gain 08/10/2009 MADL TREADLE CUT 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, ETELVINA L 780.52 Insomnia Unspecified 08/10/2009 MADL TREADLE CUT 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, ETELVINA L 783.1 Abnormal Weight Gain 08/10/2009 SALGUERO DO, LADONNA K 780.52 Insomnia Unspecified 08/10/2009 SALGUERO DO, LADONNA K 783.1 Abnormal Weight Gain 08/10/2009 SALGUERO DO, LADONNA K 780.52 Insomnia Unspecified 08/10/2009 SALGUERO DO, LADONNA K 783.1 Abnormal Weight Gain 08/10/2009 MADL TREADLE CUT 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, ETELVINA L 780.52 Insomnia Unspecified 08/10/2009 MADL TREADLE CUT 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, ETELVINA L 783.1 Abnormal Weight Gain 08/10/2009 MADL TREADLE CUT 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, ETELVINA L 780.52 Insomnia Unspecified 08/10/2009 MADL TREADLE CUT 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, ETELVINA L 783.1 Abnormal Weight Gain 08/10/2009 MADL TREADLE CUT 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, ETELVINA L 780.52 Insomnia Unspecified 08/10/2009 MADL TREADLE CUT 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, ETELVINA L 783.1 Abnormal Weight Gain 08/10/2009 MADL TREADLE CUT 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, ETELVINA L 780.52 Insomnia Unspecified 08/10/2009 MADL TREADLE CUT 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, ETELVINA L 783.1 Abnormal Weight Gain 08/10/2009 MADL TREADLE CUT 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, ETELVINA L 780.52 Insomnia Unspecified 08/10/2009 MADL TREADLE CUT 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, ETELVINA L 783.1 Abnormal Weight Gain 08/10/2009 MADL TREADLE CUT 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, ETELVINA L 780.52 Insomnia Unspecified 08/10/2009 MADL TREADLE CUT 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, ETELVINA L 783.1 Abnormal Weight Gain 08/10/2009 MADL TREADLE CUT 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, ETELVINA L 780.52 Insomnia Unspecified 08/10/2009 MADL TREADLE CUT 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, ETELVINA L 783.1 Abnormal Weight Gain 08/10/2009 SALGUERO DO, LADONNA K 780.52 Insomnia Unspecified 08/10/2009 SALGUERO DO, LADONNA K 783.1 Abnormal Weight Gain 08/10/2009 SALGUERO DO, LADONNA K 780.52 Insomnia Unspecified 08/10/2009 SALGUERO DO, LADONNA K 783.1 Abnormal Weight Gain 08/10/2009 MADL TREADLE CUT 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, ETELVINA L 780.52 Insomnia Unspecified 08/10/2009 MADL TREADLE CUT 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, ETELVINA L 783.1 Abnormal Weight Gain 08/10/2009 SALGUERO DO, LADONNA K 780.52 Insomnia Unspecified 08/10/2009 SALGUERO DO, LADONNA K 783.1 Abnormal Weight Gain 08/10/2009 MADL TREADLE CUT 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, ETELVINA L 780.52 Insomnia Unspecified 08/10/2009 MADL TREADLE CUT 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, ETELVINA L 783.1 Abnormal Weight Gain 09/04/2009 LAURIE MORA APRN S 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 09/04/2009 LAURIE MORA APRN S 780.79 Feelings Of Weakness 09/04/2009 LAURIE MORA APRN S 786.05 shortness of breath 09/04/2009 LAURIE MORA APRN S 786.2 Cough 09/04/2009 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 09/04/2009 780.79 Feelings Of Weakness 09/04/2009 786.05 Shortness Of Breath 09/04/2009 786.2 Cough 09/04/2009 MORGAN TREADLE CUT 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PALOMA BowserNDA S 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 09/04/2009 MORGAN TREADLE CUT 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, LAURIE S 780.79 Feelings Of Weakness 09/04/2009 MORGAN TREADLE CUT 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, LAURIE S 786.05 Shortness Of Breath 09/04/2009 MORGNA TREADLE CUT 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, LAURIE S 786.2 Cough 09/04/2009 MORGAN TREADLE CUT 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, LAURIE S 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 09/04/2009 MORGAN TREADLE CUT 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, LAURIE S 780.79 Feelings Of Weakness 09/04/2009 MORGAN TREADLE CUT 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PALOMA BowserNDA S 786.05 Shortness Of Breath [...] DO, LADONNA K 786.2 Cough 09/04/2009 MADL TREADLE CUT 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, ETELVINA L 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 09/04/2009 MADL TREADLE CUT 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, ETELVINA L 780.79 Feelings Of Weakness 09/04/2009 MADL TREADLE CUT 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, ETELVINA L 786.05 Shortness Of Breath 09/04/2009 MADL TREADLE CUT 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, ETELVINA L 786.2 Cough 09/04/2009 MADL TREADLE CUT OFF SAW OPERATOR, ETELVINA L 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 09/04/2009 MADL TREADLE CUT OFF SAW OPERATOR, ETELVINA L 780.79 Feelings Of Weakness 09/04/2009 MADL TREADLE CUT OFF SAW OPERATOR, ETELVINA L 786.05 Shortness Of Breath 09/04/2009 MADL TREADLE CUT OFF SAW OPERATOR, ETELVINA L 786.2 Cough 09/04/2009 MADL TREADLE CUT OFF SAW OPERATOR, ETELVINA L 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 09/04/2009 MADL TREADLE CUT OFF SAW OPERATOR, ETELVINA L 780.79 Feelings Of Weakness 09/04/2009 MADL TREADLE CUT OFF SAW OPERATOR, ETELVINA L 786.05 Shortness Of Breath 09/04/2009 MADL TREADLE CUT OFF SAW OPERATOR, ETELVINA L 786.2 Cough 09/04/2009 SALGUERO [...] DO, LADONNA K 786.2 Cough 09/04/2009 MADL TREADLE CUT OFF SAW OPERATOR, ETELVINA L 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 09/04/2009 MADL TREADLE CUT OFF SAW OPERATOR, ETELVINA L 780.79 Feelings Of Weakness 09/04/2009 MADL TREADLE CUT OFF SAW OPERATOR, ETELVINA L 786.05 Shortness Of Breath 09/04/2009 MADL TREADLE CUT OFF SAW OPERATOR, ETELVINA L 786.2 Cough 09/04/2009 MADL TREADLE CUT OFF SAW OPERATOR, ETELVINA L 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 09/04/2009 MADL TREADLE CUT OFF SAW OPERATOR, ETELVINA L 780.79 Feelings Of Weakness 09/04/2009 MADL TREADLE CUT OFF SAW OPERATOR, ETELVINA L 786.05 Shortness Of Breath 09/04/2009 MADL TREADLE CUT OFF SAW OPERATOR, ETELVINA L 786.2 Cough 09/04/2009 MADL TREADLE CUT OFF SAW OPERATOR, ETELVINA L 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 09/04/2009 MADL TREADLE CUT OFF SAW OPERATOR, ETELVINA L 780.79 Feelings Of Weakness 09/04/2009 MADL TREADLE CUT OFF SAW OPERATOR, ETELVINA L 786.05 Shortness Of Breath 09/04/2009 MADL TREADLE CUT OFF SAW OPERATOR, ETELVINA L 786.2 Cough 09/04/2009 MADL TREADLE CUT OFF SAW OPERATOR, ETELVINA L 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 09/04/2009 MADL TREADLE CUT OFF SAW OPERATOR, ETELVINA L 780.79 Feelings Of Weakness 09/04/2009 MADL TREADLE CUT OFF SAW OPERATOR, ETELVINA L 786.05 Shortness Of Breath 09/04/2009 MADL TREADLE CUT OFF SAW OPERATOR, ETELVINA L 786.2 Cough 09/04/2009 MADL TREADLE CUT OFF SAW OPERATOR, ETELVINA L 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 09/04/2009 MADL TREADLE CUT OFF SAW OPERATOR, ETELVINA L 780.79 Feelings Of Weakness 09/04/2009 MADL TREADLE CUT OFF SAW OPERATOR, ETELVINA L 786.05 Shortness Of Breath 09/04/2009 MADL TREADLE CUT OFF SAW OPERATOR, ETELVINA L 786.2 Cough 09/04/2009 MADL TREADLE CUT OFF SAW OPERATOR, ETELVINA L 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 09/04/2009 MADL TREADLE CUT OFF SAW OPERATOR, ETELVINA L 780.79 Feelings Of Weakness 09/04/2009 MADL TREADLE CUT OFF SAW OPERATOR, ETELVINA L 786.05 Shortness Of Breath 09/04/2009 MADL TREADLE CUT OFF SAW OPERATOR, ETELVINA L 786.2 Cough 09/04/2009 MADL TREADLE CUT OFF SAW OPERATOR, ETELVINA L 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 09/04/2009 MADL TREADLE CUT OFF SAW OPERATOR, ETELVINA L 780.79 Feelings Of Weakness 09/04/2009 MADL TREADLE CUT OFF SAW OPERATOR, ETELVINA L 786.05 Shortness Of Breath 09/04/2009 MADL TREADLE CUT OFF SAW OPERATOR, ETELVINA L 786.2 Cough 09/04/2009 SALGUERO [...] DO, LADONNA K 786.2 Cough 09/04/2009 MADL TREADLE CUT OFF SAW OPERATOR, ETELVINA L 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 09/04/2009 MADL TREADLE CUT OFF SAW OPERATOR, ETELVINA L 780.79 Feelings Of Weakness 09/04/2009 MADL TREADLE CUT OFF SAW OPERATOR, ETELVINA L 786.05 Shortness Of Breath 09/04/2009 MADL TREADLE CUT OFF SAW OPERATOR, ETELVINA L 786.2 Cough 09/04/2009 SALGUERO DO, LADONNA K 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 09/04/2009 SALGUERO DO, LADONNA K 780.79 Feelings Of Weakness 09/04/2009 SALGUERO DO, LADONNA K 786.05 Shortness Of Breath 09/04/2009 SALGUERO DO, LADONNA K 786.2 Cough 09/04/2009 MADL TREADLE CUT OFF SAW OPERATOR, ETELVINA L 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 09/04/2009 MADL TREADLE CUT OFF SAW OPERATOR, ETELVINA L 780.79 Feelings Of Weakness 09/04/2009 MADL TREADLE CUT OFF SAW OPERATOR, ETELVINA L 786.05 Shortness Of Breath 09/04/2009 MADL TREADLE CUT OFF SAW OPERATOR, ETELVINA L 786.2 Cough 09/07/2009 MORGAN TREADLE CUT OFF SAW OPERATOR, LAURIE S 079.99 Viral Syndrome 09/07/2009 079.99 Viral Syndrome 09/07/2009 MORGAN TREADLE CUT OFF SAW OPERATOR, LAURIE S 079.99 Viral Syndrome 09/07/2009 MORGAN TREADLE CUT OFF SAW OPERATOR, LAURIE S 079.99 Viral Syndrome 09/07/2009 [...] PRAKASHA K 079.99 Viral Syndrome 09/07/2009 MADL TREADLE CUT OFF SAW OPERATOR, ETELVINA L 079.99 Viral Syndrome 09/07/2009 MADL TREADLE CUT OFF SAW OPERATOR, ETELVINA L 079.99 Viral Syndrome 09/07/2009 MADL TREADLE CUT OFF SAW OPERATOR, ETELVINA L 079.99 Viral Syndrome 09/07/2009 SALGUERO DO, LADONNA K 079.99 Viral Syndrome 09/07/2009 SALGUERO DO, LADONNA K 079.99 Viral Syndrome 09/07/2009 MADL TREADLE CUT OFF SAW OPERATOR, ETELVINA L 079.99 Viral Syndrome 09/07/2009 MADL TREADLE CUT OFF SAW OPERATOR, ETELVINA L 079.99 Viral Syndrome 09/07/2009 MADL TREADLE CUT OFF SAW OPERATOR, ETELVINA L 079.99 Viral Syndrome 09/07/2009 MADL TREADLE CUT OFF SAW OPERATOR, ETELVINA L 079.99 Viral Syndrome 09/07/2009 MADL TREADLE CUT OFF SAW OPERATOR, ETELVINA L 079.99 Viral Syndrome 09/07/2009 MADL TREADLE CUT OFF SAW OPERATOR, ETELVINA L 079.99 Viral Syndrome 09/07/2009 MADL TREADLE CUT OFF SAW OPERATOR, ETELVINA L 079.99 Viral Syndrome 09/07/2009 SALGUERO DO, LADONNA K 079.99 Viral Syndrome 09/07/2009 SALGUERO DO, LADONNA K 079.99 Viral Syndrome 09/07/2009 MADL TREADLE CUT OFF SAW OPERATOR, ETELVINA L 079.99 Viral Syndrome 09/07/2009 SALGUERO DO, LADONNA K 079.99 Viral Syndrome 09/07/2009 MADL TREADLE CUT OFF SAW OPERATOR, ETELVINA L 079.99 Viral Syndrome 10/12/2009 [...] DO, LADONNA K 799.02 Hypoxemia 10/12/2009 MADL TREADLE CUT OFF SAW OPERATOR ETELVINA L 719.58 Stiffness Of Joint, Not Elsewhere Classified, Other Specified Sites 10/12/2009 MADL TREADLE CUT OFF SAW OPERATOR, ETELVINA L 799.02 Hypoxemia 10/12/2009 MADL TREADLE CUT OFF SAW OPERATOR, ETELVINA L 719.58 Stiffness Of Joint, Not Elsewhere Classified, Other Specified Sites 10/12/2009 MADL TREADLE CUT OFF SAW OPERATOR, ETELVINA L 799.02 Hypoxemia 10/12/2009 MADL TREADLE CUT OFF SAW OPERATOR, ETELVINA L 719.58 Stiffness Of Joint, Not Elsewhere Classified, Other Specified Sites 10/12/2009 MADL TREADLE CUT OFF SAW OPERATOR, ETELVINA L 799.02 Hypoxemia 10/12/2009 SALGUERO DO, LADONNA K 719.58 Stiffness Of Joint, Not Elsewhere Classified, Other Specified Sites 10/12/2009 SALGUERO DO, LADONNA K 799.02 Hypoxemia 10/12/2009 SALGUERO DO, LADONNA K 719.58 Stiffness Of Joint, Not Elsewhere Classified, Other Specified Sites 10/12/2009 SALGUERO DO, LADONNA K 799.02 Hypoxemia 10/12/2009 MADL TREADLE CUT OFF SAW OPERATOR, ETELVINA L 719.58 Stiffness Of Joint, Not Elsewhere Classified, Other Specified Sites 10/12/2009 MADL TREADLE CUT OFF SAW OPERATOR, ETELVINA L 799.02 Hypoxemia 10/12/2009 MADL TREADLE CUT OFF SAW OPERATOR, ETELVINA L 719.58 Stiffness Of Joint, Not Elsewhere Classified, Other Specified Sites 10/12/2009 MADL TREADLE CUT OFF SAW OPERATOR, ETELVINA L 799.02 Hypoxemia 10/12/2009 MADL TREADLE CUT OFF SAW OPERATOR, ETELVINA L 719.58 Stiffness Of Joint, Not Elsewhere Classified, Other Specified Sites 10/12/2009 MADL TREADLE CUT OFF SAW OPERATOR, ETELVINA L 799.02 Hypoxemia 10/12/2009 MADL TREADLE CUT OFF SAW OPERATOR, ETELVINA L 719.58 Stiffness Of Joint, Not Elsewhere Classified, Other Specified Sites 10/12/2009 MADL TREADLE CUT OFF SAW OPERATOR, ETELVINA L 799.02 Hypoxemia 10/12/2009 MADL TREADLE CUT OFF SAW OPERATOR, ETELVINA L 719.58 Stiffness Of Joint, Not Elsewhere Classified, Other Specified Sites 10/12/2009 MADL TREADLE CUT OFF SAW OPERATOR, ETELVINA L 799.02 Hypoxemia 10/12/2009 MADL TREADLE CUT OFF SAW OPERATOR, ETELVINA L 719.58 Stiffness Of Joint, Not Elsewhere Classified, Other Specified Sites 10/12/2009 MADL TREADLE CUT OFF SAW OPERATOR, ETELVINA L 799.02 Hypoxemia 10/12/2009 MADL TREADLE CUT OFF SAW OPERATOR, ETELVINA L 719.58 Stiffness Of Joint, Not Elsewhere Classified, Other Specified Sites 10/12/2009 MADL TREADLE CUT OFF SAW OPERATOR, ETELVINA L 799.02 Hypoxemia 10/12/2009 SALGUERO DO, LADONNA K 719.58 Stiffness Of Joint, Not Elsewhere Classified, Other Specified Sites 10/12/2009 SALGUERO DO, LADONNA K 799.02 Hypoxemia 10/12/2009 SALGUERO DO, LADONNA K 719.58 Stiffness Of Joint, Not Elsewhere Classified, Other Specified Sites 10/12/2009 SALGUERO DO, LADONNA K 799.02 Hypoxemia 10/12/2009 MADL TREADLE CUT OFF SAW OPERATOR, ETELVINA L 719.58 Stiffness Of Joint, Not Elsewhere Classified, Other Specified Sites 10/12/2009 MADL TREADLE CUT OFF SAW OPERATOR, ETELVINA L 799.02 Hypoxemia 10/12/2009 SALGUERO DO, LADONNA K 719.58 Stiffness Of Joint, Not Elsewhere Classified, Other Specified Sites 10/12/2009 SALGUERO DO, LADONNA K 799.02 Hypoxemia 10/12/2009 MADL TREADLE CUT OFF SAW OPERATOR, ETELVINA L 719.58 Stiffness Of Joint, Not Elsewhere Classified, Other Specified Sites 10/12/2009 MADL TREADLE CUT OFF SAW OPERATOR, ETELVINA L 799.02 Hypoxemia 11/07/2009 PALOMA MORA APRNNDA S 300.00 ANXIETY UNSPEC 11/07/2009 PALOMA MORA APRNNDA S 305.1 NICOTINE DEPENDENCE - CONTINUOUS 11/07/2009 300.00 Anxiety Unspec 11/07/2009 305.1 NICOTINE DEPENDENCE - CONTINUOUS 11/07/2009 MORGAN TREADLE CUT OFF SAW OPERATORPALOMA BowserNDA S 300.00 Anxiety Unspec 11/07/2009 [...] 305.1 NICOTINE DEPENDENCE - CONTINUOUS 11/07/2009 MADL TREADLE CUT OFF SAW OPERATOR, ETELVINA L 300.00 Anxiety Unspec 11/07/2009 MADL TREADLE CUT OFF SAW OPERATOR, ETELVINA L 305.1 NICOTINE DEPENDENCE - CONTINUOUS 11/07/2009 MADL TREADLE CUT OFF SAW OPERATOR, ETELVINA L 300.00 Anxiety Unspec 11/07/2009 MADL TREADLE CUT OFF SAW OPERATOR, ETELVINA L 305.1 NICOTINE DEPENDENCE - CONTINUOUS 11/07/2009 MADL TREADLE CUT OFF SAW OPERATOR, ETELVINA L 300.00 Anxiety Unspec 11/07/2009 MADL TREADLE CUT OFF SAW OPERATOR, ETELVINA L 305.1 NICOTINE DEPENDENCE - CONTINUOUS 11/07/2009 SALGUERO DO, LADONNA K 300.00 Anxiety Unspec 11/07/2009 SALGUERO DO, LADONNA K 305.1 NICOTINE DEPENDENCE - CONTINUOUS 11/07/2009 SALGUERO DO, LADONNA K 300.00 Anxiety Unspec 11/07/2009 SALGUERO DO, LADONNA K 305.1 NICOTINE DEPENDENCE - CONTINUOUS 11/07/2009 MADL TREADLE CUT OFF SAW OPERATOR, ETELVINA L 300.00 Anxiety Unspec 11/07/2009 MADL TREADLE CUT OFF SAW OPERATOR, ETELVINA L 305.1 NICOTINE DEPENDENCE - CONTINUOUS 11/07/2009 MADL TREADLE CUT OFF SAW OPERATOR, ETELVINA L 300.00 Anxiety Unspec 11/07/2009 MADL TREADLE CUT OFF SAW OPERATOR, ETELVINA L 305.1 NICOTINE DEPENDENCE - CONTINUOUS 11/07/2009 MADL TREADLE CUT OFF SAW OPERATOR, ETELVINA L 300.00 Anxiety Unspec 11/07/2009 MADL TREADLE CUT OFF SAW OPERATOR, ETELVINA L 305.1 NICOTINE DEPENDENCE - CONTINUOUS 11/07/2009 MADL TREADLE CUT OFF SAW OPERATOR, ETELVINA L 300.00 Anxiety Unspec 11/07/2009 MADL TREADLE CUT OFF SAW OPERATOR, ETELVINA L 305.1 NICOTINE DEPENDENCE - CONTINUOUS 11/07/2009 MADL TREADLE CUT OFF SAW OPERATOR, ETELVINA L 300.00 Anxiety Unspec 11/07/2009 MADL TREADLE CUT OFF SAW OPERATOR, ETELVINA L 305.1 NICOTINE DEPENDENCE - CONTINUOUS 11/07/2009 MADL TREADLE CUT OFF SAW OPERATOR, ETELVINA L 300.00 Anxiety Unspec 11/07/2009 MADL TREADLE CUT OFF SAW OPERATOR, ETELVINA L 305.1 NICOTINE DEPENDENCE - CONTINUOUS 11/07/2009 MADL TREADLE CUT OFF SAW OPERATOR, ETELVINA L 300.00 Anxiety Unspec 11/07/2009 MADL TREADLE CUT OFF SAW OPERATOR, ETELVINA L 305.1 NICOTINE DEPENDENCE - CONTINUOUS 11/07/2009 SALGUERO DO, LADONNA K 300.00 Anxiety Unspec 11/07/2009 SALGUERO DO, LADONNA K 305.1 NICOTINE DEPENDENCE - CONTINUOUS 11/07/2009 SALGUERO DO, LADONNA K 300.00 Anxiety Unspec 11/07/2009 SALGUERO DO, LADONNA K 305.1 NICOTINE DEPENDENCE - CONTINUOUS 11/07/2009 MADL TREADLE CUT OFF SAW OPERATOR, ETELVINA L 300.00 Anxiety Unspec 11/07/2009 MADL TREADLE CUT OFF SAW OPERATOR, ETELVINA L 305.1 NICOTINE DEPENDENCE - CONTINUOUS 11/07/2009 SALGUERO DO, LADONNA K 300.00 Anxiety Unspec 11/07/2009 SALGUERO DO, LADONNA K 305.1 NICOTINE DEPENDENCE - CONTINUOUS 11/07/2009 MADL TREADLE CUT OFF SAW OPERATOR, ETELVINA L 300.00 Anxiety Unspec 11/07/2009 MADL TREADLE CUT OFF SAW OPERATOR, ETELVINA L 305.1 NICOTINE DEPENDENCE - CONTINUOUS 01/31/2010 LAURIE MORA APRN S 719.43 Joint Pain, Localized In The Wrist 01/31/2010 LAURIE MORA APRN S 782.0 Numbness (hypesthesia) 01/31/2010 719.43 Joint Pain, Localized In The Wrist 01/31/2010 782.0 Numbness ( hypesthesia) 01/31/2010 LAURIE MORA APRN 719.43 Joint Pain, Localized In The Wrist 01/31/2010 MORGAN TREADLE CUT OFF SAW OPERATOR, LAURIE S 782.0 Numbness (hypesthesia) 01/31/2010 MORGAN TREADLE CUT OFF SAW OPERATOR, LAURIE S 719.43 Joint Pain, Localized [...] LADONNA K 782.0 Numbness (hypesthesia) 01/31/2010 MADL TREADLE CUT OFF SAW OPERATOR, ETELVINA L 719.43 Joint Pain, Localized In The Wrist 01/31/2010 MADL TREADLE CUT OFF SAW OPERATOR, ETELVINA L 782.0 Numbness (hypesthesia) 01/31/2010 MADL TREADLE CUT OFF SAW OPERATOR, ETELVINA L 719.43 Joint Pain, Localized In The Wrist 01/31/2010 MADL TREADLE CUT OFF SAW OPERATOR, ETELVINA L 782.0 Numbness (hypesthesia) 01/31/2010 MADL TREADLE CUT OFF SAW OPERATOR, ETELVINA L 719.43 Joint Pain, Localized In The Wrist 01/31/2010 MADL TREADLE CUT OFF SAW OPERATOR, ETELVINA L 782.0 Numbness (hypesthesia) 01/31/2010 SALGUERO DO, LADONNA K 719.43 Joint Pain, Localized In The Wrist 01/31/2010 SALGUERO DO, LADONNA K 782.0 Numbness (hypesthesia) 01/31/2010 SALGUERO DO, LADONNA K 719.43 Joint Pain, Localized In The Wrist 01/31/2010 SALGUERO DO, LADONNA K 782.0 Numbness (hypesthesia) 01/31/2010 MADL TREADLE CUT OFF SAW OPERATOR, ETELVINA L 719.43 Joint Pain, Localized In The Wrist 01/31/2010 MADL TREADLE CUT OFF SAW OPERATOR, ETELVINA L 782.0 Numbness (hypesthesia) 01/31/2010 MADL TREADLE CUT OFF SAW OPERATOR, ETELVINA L 719.43 Joint Pain, Localized In The Wrist 01/31/2010 MADL TREADLE CUT OFF SAW OPERATOR, ETELVINA L 782.0 Numbness (hypesthesia) 01/31/2010 MADL TREADLE CUT OFF SAW OPERATOR, ETELVINA L 719.43 Joint Pain, Localized In The Wrist 01/31/2010 MADL TREADLE CUT OFF SAW OPERATOR, ETELVINA L 782.0 Numbness (hypesthesia) 01/31/2010 MADL TREADLE CUT OFF SAW OPERATOR, ETELVINA L 719.43 Joint Pain, Localized In The Wrist 01/31/2010 MADL TREADLE CUT OFF SAW OPERATOR, ETELVINA L 782.0 Numbness (hypesthesia) 01/31/2010 MADL TREADLE CUT OFF SAW OPERATOR, ETELVINA L 719.43 Joint Pain, Localized In The Wrist 01/31/2010 MADL TREADLE CUT OFF SAW OPERATOR, ETELVINA L 782.0 Numbness (hypesthesia) 01/31/2010 MADL TREADLE CUT OFF SAW OPERATOR, ETELVINA L 719.43 Joint Pain, Localized In The Wrist 01/31/2010 MADL TREADLE CUT OFF SAW OPERATOR, ETELVINA L 782.0 Numbness (hypesthesia) 01/31/2010 MADL TREADLE CUT OFF SAW OPERATOR, ETELVINA L 719.43 Joint Pain, Localized In The Wrist 01/31/2010 MADL TREADLE CUT OFF SAW OPERATOR, ETELVINA L 782.0 Numbness (hypesthesia) 01/31/2010 SALGUERO DO, LADONNA K 719.43 Joint Pain, Localized In The Wrist 01/31/2010 SALGUERO DO, LADONNA K 782.0 Numbness (hypesthesia) 01/31/2010 SALGUERO DO, LADONNA K 719.43 Joint Pain, Localized In The Wrist 01/31/2010 SALGUERO DO, LADONNA K 782.0 Numbness (hypesthesia) 01/31/2010 MADL TREADLE CUT OFF SAW OPERATOR, ETELVINA L 719.43 Joint Pain, Localized In The Wrist 01/31/2010 MADL TREADLE CUT OFF SAW OPERATOR, ETELVINA L 782.0 Numbness (hypesthesia) 01/31/2010 SALGUERO DO LADONNA K 719.43 Joint Pain, Localized In The Wrist 01/31/2010 SALGUERO DO, LADONNA K 782.0 Numbness (hypesthesia) 01/31/2010 MADL TREADLE CUT OFF SAW OPERATORHAMMAD BowserA L 719.43 Joint Pain, Localized In The Wrist 01/31/2010 MADL TREADLE CUT OFF SAW OPERATOR, ETELVINA L 782.0 Numbness (hypesthesia) 03/14/2010 [...] K 517.3 Acute Chest Syndrome 04/02/2010 MADMaxine TREADLE CUT OFF SAW OPERATORHAMMAD BowserA L 517.3 Acute Chest Syndrome 04/02/2010 MADL TREADLE CUT OFF SAW OPERATOR, ETELVINA L 517.3 Acute Chest Syndrome 04/02/2010 MADL TREADLE CUT OFF SAW OPERATOR, ETELVINA L 517.3 Acute Chest Syndrome 04/02/2010 SALGUERO DO, LADONNA K 517.3 Acute Chest Syndrome 04/02/2010 SALGUERO DO, LADONNA K 517.3 Acute Chest Syndrome 04/02/2010 MADL TREADLE CUT OFF SAW OPERATOR, ETELVINA L 517.3 Acute Chest Syndrome 04/02/2010 MADL TREADLE CUT OFF SAW OPERATOR, ETELVINA L 517.3 Acute Chest Syndrome 04/02/2010 MADL TREADLE CUT OFF SAW OPERATOR, ETELVINA L 517.3 Acute Chest Syndrome 04/02/2010 MADL TREADLE CUT OFF SAW OPERATOR, ETELVINA L 517.3 Acute Chest Syndrome 04/02/2010 MADL TREADLE CUT OFF SAW OPERATOR, ETELVINA L 517.3 Acute Chest Syndrome 04/02/2010 MADL TREADLE CUT OFF SAW OPERATOR, ETELVINA L 517.3 Acute Chest Syndrome 04/02/2010 MADL TREADLE CUT OFF SAW OPERATOR, ETELVINA L 517.3 Acute Chest Syndrome 04/02/2010 SALGUERO DO, LADONNA K 517.3 Acute Chest Syndrome 04/02/2010 SALGUERO DO, LADONNA K 517.3 Acute Chest Syndrome 04/02/2010 MADL TREADLE CUT OFF SAW OPERATOR, ETELVINA L 517.3 Acute Chest Syndrome 04/02/2010 SALGUERO DO, LADONNA K 517.3 Acute Chest Syndrome 04/02/2010 MADL TREADLE CUT OFF SAW OPERATOR, ETELVINA L 517.3 Acute Chest Syndrome 04/14/2010 Ot 305.1 04/14/2010 Ot 491.21 04/14/2010 Ot 786.05 05/20/2010 MORGAN TREADLE CUT OFF SAW OPERATOR, LAURIE S 272.4 HYPERLIPIDEMIA 05/20/2010 MORGAN TREADLE CUT OFF SAW OPERATOR, LAURIE S 414.01 CAD 05/20/2010 272.4 HYPERLIPIDEMIA 05/20/2010 414.01 CAD 05/20/2010 MORGAN TREADLE CUT OFF SAW OPERATOR, LAURIE S 272.4 HYPERLIPIDEMIA 05/20/2010 MORGAN TREADLE CUT OFF SAW OPERATOR, LAURIE S 414.01 CAD 05/20/2010 MORGAN TREADLE CUT OFF SAW OPERATOR, LAURIE S 272.4 HYPERLIPIDEMIA 05/20/2010 MORGAN [...] 414.01 CORONARY ARTERY STENOSIS MULTI-VESSEL 05/20/2010 MADL TREADLE CUT OFF SAW OPERATOR, ETELVINA L 272.4 HYPERLIPIDEMIA 05/20/2010 MADL TREADLE CUT OFF SAW OPERATOR, ETELVINA L 414.01 CORONARY ARTERY STENOSIS MULTI-VESSEL 05/20/2010 MADL TREADLE CUT OFF SAW OPERATOR, ETELVINA L 272.4 HYPERLIPIDEMIA 05/20/2010 MADL TREADLE CUT OFF SAW OPERATOR, ETELVINA L 414.01 CORONARY ARTERY STENOSIS MULTI-VESSEL 05/20/2010 MADL TREADLE CUT OFF SAW OPERATOR, ETELVINA L 272.4 HYPERLIPIDEMIA 05/20/2010 MADL TREADLE CUT OFF SAW OPERATOR, ETELVINA L 414.01 CORONARY ARTERY STENOSIS MULTI-VESSEL 05/20/2010 SALGUERO DO, LADONNA K 272.4 HYPERLIPIDEMIA 05/20/2010 SALGUERO DO, LADONNA K 414.01 CORONARY ARTERY STENOSIS MULTI-VESSEL 05/20/2010 SALGUERO DO, LADONNA K 272.4 HYPERLIPIDEMIA 05/20/2010 SALGUERO DO, LADONNA K 414.01 CORONARY ARTERY STENOSIS MULTI-VESSEL 05/20/2010 MADL TREADLE CUT OFF SAW OPERATOR, ETELVINA L 272.4 HYPERLIPIDEMIA 05/20/2010 MADL TREADLE CUT OFF SAW OPERATOR, ETELVINA L 414.01 CORONARY ARTERY STENOSIS MULTI-VESSEL 05/20/2010 MADL TREADLE CUT OFF SAW OPERATOR, ETELVINA L 272.4 HYPERLIPIDEMIA 05/20/2010 MADL TREADLE CUT OFF SAW OPERATOR, ETELVINA L 414.01 CORONARY ARTERY STENOSIS MULTI-VESSEL 05/20/2010 MADL TREADLE CUT OFF SAW OPERATOR, ETELVINA L 272.4 HYPERLIPIDEMIA 05/20/2010 MADL TREADLE CUT OFF SAW OPERATOR, ETELVINA L 414.01 CORONARY ARTERY STENOSIS MULTI-VESSEL 05/20/2010 MADL TREADLE CUT OFF SAW OPERATOR, ETELVINA L 272.4 HYPERLIPIDEMIA 05/20/2010 MADL TREADLE CUT OFF SAW OPERATOR, ETELVINA L 414.01 CORONARY ARTERY STENOSIS MULTI-VESSEL 05/20/2010 MADL TREADLE CUT OFF SAW OPERATOR, ETELVINA L 272.4 HYPERLIPIDEMIA 05/20/2010 MADL TREADLE CUT OFF SAW OPERATOR, ETELVINA L 414.01 CORONARY ARTERY STENOSIS MULTI-VESSEL 05/20/2010 MADL TREADLE CUT OFF SAW OPERATOR, ETELVINA L 272.4 HYPERLIPIDEMIA 05/20/2010 MADL TREADLE CUT OFF SAW OPERATOR, ETELVINA L 414.01 CORONARY ARTERY STENOSIS MULTI-VESSEL 05/20/2010 MADL TREADLE CUT OFF SAW OPERATOR, ETELVINA L 272.4 HYPERLIPIDEMIA 05/20/2010 MADL TREADLE CUT OFF SAW OPERATOR, ETELVINA L 414.01 CORONARY ARTERY STENOSIS MULTI-VESSEL 05/20/2010 SALGUERO DO, LADONNA K 272.4 HYPERLIPIDEMIA 05/20/2010 SALGUERO DO, LADONNA K 414.01 CORONARY ARTERY STENOSIS MULTI-VESSEL 05/20/2010 SALGUERO DO, LADONNA K 272.4 HYPERLIPIDEMIA 05/20/2010 SALGUERO DO, LADONNA K 414.01 CORONARY ARTERY STENOSIS MULTI-VESSEL 05/20/2010 MADL TREADLE CUT OFF SAW OPERATOR, ETELVINA L 272.4 HYPERLIPIDEMIA 05/20/2010 MADL TREADLE CUT OFF SAW OPERATOR, ETELVINA L 414.01 CORONARY ARTERY STENOSIS MULTI-VESSEL 05/20/2010 SALGUERO DO, LADONNA K 272.4 HYPERLIPIDEMIA 05/20/2010 SALGUERO DO, LADONNA K 414.01 CORONARY ARTERY STENOSIS MULTI-VESSEL 05/20/2010 MADL TREADLE CUT OFF SAW OPERATOR, ETELVINA L 272.4 HYPERLIPIDEMIA 05/20/2010 MADL TREADLE CUT OFF SAW OPERATOR, ETELVINA L 414.01 CORONARY ARTERY STENOSIS [...] 356.9 UNSPECIFIED IDIOPATHIC PERIPHERAL NEUROPATHY 07/31/2010 MADL TREADLE CUT OFF SAW OPERATOR, ETELVINA L 356.9 UNSPECIFIED IDIOPATHIC PERIPHERAL NEUROPATHY 07/31/2010 MADL TREADLE CUT OFF SAW OPERATOR, ETELVINA L 356.9 UNSPECIFIED IDIOPATHIC PERIPHERAL NEUROPATHY 07/31/2010 MADL TREADLE CUT OFF SAW OPERATOR, ETELVINA L 356.9 UNSPECIFIED IDIOPATHIC PERIPHERAL NEUROPATHY 07/31/2010 SALGUERO DO, LADONNA K 356.9 UNSPECIFIED IDIOPATHIC PERIPHERAL NEUROPATHY 07/31/2010 SALGUERO DO, LADONNA K 356.9 UNSPECIFIED IDIOPATHIC PERIPHERAL NEUROPATHY 07/31/2010 MADL TREADLE CUT OFF SAW OPERATOR, ETELVINA L 356.9 UNSPECIFIED IDIOPATHIC PERIPHERAL NEUROPATHY 07/31/2010 MADL TREADLE CUT OFF SAW OPERATOR, ETELVINA L 356.9 UNSPECIFIED IDIOPATHIC PERIPHERAL NEUROPATHY 07/31/2010 MADL TREADLE CUT OFF SAW OPERATOR, ETELVINA L 356.9 UNSPECIFIED IDIOPATHIC PERIPHERAL NEUROPATHY 07/31/2010 MADL TREADLE CUT OFF SAW OPERATOR, ETLEVINA L 356.9 UNSPECIFIED IDIOPATHIC PERIPHERAL NEUROPATHY 07/31/2010 MADL TREADLE CUT OFF SAW OPERATOR, ETELVINA L 356.9 UNSPECIFIED IDIOPATHIC PERIPHERAL NEUROPATHY 07/31/2010 MADL TREADLE CUT OFF SAW OPERATOR, ETELVINA L 356.9 UNSPECIFIED IDIOPATHIC PERIPHERAL NEUROPATHY 07/31/2010 MADL TREADLE CUT OFF SAW OPERATOR, ETELVINA L 356.9 UNSPECIFIED IDIOPATHIC PERIPHERAL NEUROPATHY 07/31/2010 SALGUERO DO, LADONNA K 356.9 UNSPECIFIED IDIOPATHIC PERIPHERAL NEUROPATHY 07/31/2010 SALGUERO DO, LADONNA K 356.9 UNSPECIFIED IDIOPATHIC PERIPHERAL NEUROPATHY 07/31/2010 MADL TREADLE CUT OFF SAW OPERATOR, ETELVINA L 356.9 UNSPECIFIED IDIOPATHIC PERIPHERAL NEUROPATHY 07/31/2010 SALGUERO DO, LADONNA K 356.9 UNSPECIFIED IDIOPATHIC PERIPHERAL NEUROPATHY 07/31/2010 MADL TREADLE CUT OFF SAW OPERATOR, ETELVINA L 356.9 UNSPECIFIED IDIOPATHIC PERIPHERAL NEUROPATHY 08/01/2010 MORGAN TREADLE CUT OFF SAW OPERATOR, LAURIE S 791.0 Microalbuminuria 08/01/2010 791.0 Microalbuminuria 08/01/2010 MORGAN TREADLE CUT OFF SAW OPERATOR, LAURIE S 791.0 Microalbuminuria 08/01/2010 MORGAN TREADLE CUT OFF SAW OPERATOR, LAURIE S 791.0 Microalbuminuria 08/01/2010 ROMELIA [...] DO, LADONNA K 791.0 Microalbuminuria 08/01/2010 MADL TREADLE CUT OFF SAW OPERATOR, ETELVINA L 791.0 Microalbuminuria 08/01/2010 MADL TREADLE CUT OFF SAW OPERATOR, ETELVINA L 791.0 Microalbuminuria 08/01/2010 MADL TREADLE CUT OFF SAW OPERATOR, ETELVINA L 791.0 Microalbuminuria 08/01/2010 SALGUERO DO, LADONNA K 791.0 Microalbuminuria 08/01/2010 SALGUERO DO, LADONNA K 791.0 Microalbuminuria 08/01/2010 MADL TREADLE CUT OFF SAW OPERATOR, ETELVINA L 791.0 Microalbuminuria 08/01/2010 MADL TREADLE CUT OFF SAW OPERATOR, ETELVINA L 791.0 Microalbuminuria 08/01/2010 MADL TREADLE CUT OFF SAW OPERATOR, ETELVINA L 791.0 Microalbuminuria 08/01/2010 MADL TREADLE CUT OFF SAW OPERATOR, ETELVINA L 791.0 Microalbuminuria 08/01/2010 MADL TREADLE CUT OFF SAW OPERATOR, ETELVINA L 791.0 Microalbuminuria 08/01/2010 MADL TREADLE CUT OFF SAW OPERATOR, ETELVINA L 791.0 Microalbuminuria 08/01/2010 MADL TREADLE CUT OFF SAW OPERATOR, ETELVINA L 791.0 Microalbuminuria 08/01/2010 SALGUERO DO, LADONNA K 791.0 Microalbuminuria 08/01/2010 SALGUERO DO, LADONNA K 791.0 Microalbuminuria 08/01/2010 MADL TREADLE CUT OFF SAW OPERATOR, ETELVINA L 791.0 Microalbuminuria 08/01/2010 SALGUERO DO, LADONNA K 791.0 Microalbuminuria 08/01/2010 MADL TREADLE CUT OFF SAW OPERATOR, ETELVINA L 791.0 Microalbuminuria 08/05/2010 LAURIE [...] 721.0 Cervical Spondylosis Without Myelopathy 08/05/2010 MADL TREADLE CUT OFF SAW OPERATOR, ETELVINA L 721.0 Cervical Spondylosis Without Myelopathy 08/05/2010 MADL TREADLE CUT OFF SAW OPERATOR, ETELVINA L 721.0 Cervical Spondylosis Without Myelopathy 08/05/2010 MADL TREADLE CUT OFF SAW OPERATOR, ETELVINA L 721.0 Cervical Spondylosis Without Myelopathy 08/05/2010 SALGUERO DO, LADONNA K 721.0 Cervical Spondylosis Without Myelopathy 08/05/2010 SALGUERO DO, LADONNA K 721.0 Cervical Spondylosis Without Myelopathy 08/05/2010 MADL TREADLE CUT OFF SAW OPERATOR, ETELVINA L 721.0 Cervical Spondylosis Without Myelopathy 08/05/2010 MADL TREADLE CUT OFF SAW OPERATOR, ETELVINA L 721.0 Cervical Spondylosis Without Myelopathy 08/05/2010 MADL TREADLE CUT OFF SAW OPERATOR, ETELVINA L 721.0 Cervical Spondylosis Without Myelopathy 08/05/2010 MADL TREADLE CUT OFF SAW OPERATOR, ETELVINA L 721.0 Cervical Spondylosis Without Myelopathy 08/05/2010 MADL TREADLE CUT OFF SAW OPERATOR, ETELVINA L 721.0 Cervical Spondylosis Without Myelopathy 08/05/2010 MADL TREADLE CUT OFF SAW OPERATOR, ETELVINA L 721.0 Cervical Spondylosis Without Myelopathy 08/05/2010 MADL TREADLE CUT OFF SAW OPERATOR, ETELVINA L 721.0 Cervical Spondylosis Without Myelopathy 08/05/2010 SALGUERO DO, LADONNA K 721.0 Cervical Spondylosis Without Myelopathy 08/05/2010 SALGUERO DO, LADONNA K 721.0 Cervical Spondylosis Without Myelopathy 08/05/2010 HUGOL TREADLE CUT OFF SAW OPERATOR, ETELVINA Goodman 721.0 Cervical Spondylosis Without Myelopathy 08/05/2010 LADONNA SALGUERO DO K 721.0 Cervical Spondylosis Without Myelopathy 08/05/2010 MADL TREADLE CUT OFF SAW OPERATOR, ETELVINA Goodman 721.0 Cervical Spondylosis Without Myelopathy 08/07/2010 Ot 847.0 08/07/2010 Ot 847.2 08/07/2010 Ot 959.09 08/07/2010 Ot E000.8 08/07/2010 Ot E849.0 08/07/2010 Ot E884.2 08/13/2010 MORGAN HARRIS LAURIE S 441.4 ABDOMINAL ANEURYSM WITHOUT MENTION OF RUPTURE 08/13/2010 MORGAN TREADLE CUT OFF SAW OPERATOR, LAURIE S 724.2 LUMBAGO 08/13/2010 441.4 Abdominal Aneurysm Without Mention Of Rupture 08/13/2010 724.2 LUMBAGO 08/13/2010 MORGAN HARRIS LAURIE S 441.4 Abdominal Aneurysm Without Mention Of Rupture 08/13/2010 MORGAN TREADLE CUT OFF SAW OPERATOR, LAURIE S 724.2 LUMBAGO 08/13/2010 MORGAN TREADLE CUT OFF SAW OPERATOR, LAURIE S 441.4 Abdominal Aneurysm Without [...] K 724.2 lower back pain 08/13/2010 MADL TREADLE CUT OFF SAW OPERATOR, ETELVINA L 441.4 Abdominal Aneurysm Without Mention Of Rupture 08/13/2010 MADL TREADLE CUT OFF SAW OPERATOR, ETELVINA L 724.2 lower back pain 08/13/2010 MADL TREADLE CUT OFF SAW OPERATOR, ETELVINA L 441.4 Abdominal Aneurysm Without Mention Of Rupture 08/13/2010 MADL TREADLE CUT OFF SAW OPERATOR, ETELVINA L 724.2 lower back pain 08/13/2010 MADL TREADLE CUT OFF SAW OPERATOR, ETELVINA L 441.4 Abdominal Aneurysm Without Mention Of Rupture 08/13/2010 MADL TREADLE CUT OFF SAW OPERATOR, ETELVINA L 724.2 lower back pain 08/13/2010 SALGUERO DO, LADONNA K 441.4 Abdominal Aneurysm Without Mention Of Rupture 08/13/2010 SALGUERO DO, LADONNA K 724.2 lower back pain 08/13/2010 SALGUERO DO, LADONNA K 441.4 Abdominal Aneurysm Without Mention Of Rupture 08/13/2010 SALGUERO DO, LADONNA K 724.2 lower back pain 08/13/2010 MADL TREADLE CUT OFF SAW OPERATOR, ETELVINA L 441.4 Abdominal Aneurysm Without Mention Of Rupture 08/13/2010 MADL TREADLE CUT OFF SAW OPERATOR, ETELVINA L 724.2 lower back pain 08/13/2010 MADL TREADLE CUT OFF SAW OPERATOR, ETELVINA L 441.4 Abdominal Aneurysm Without Mention Of Rupture 08/13/2010 MADL TREADLE CUT OFF SAW OPERATOR, ETELVINA L 724.2 lower back pain 08/13/2010 MADL TREADLE CUT OFF SAW OPERATOR, ETELVINA L 441.4 Abdominal Aneurysm Without Mention Of Rupture 08/13/2010 MADL TREADLE CUT OFF SAW OPERATOR, ETELVINA L 724.2 lower back pain 08/13/2010 MADL TREADLE CUT OFF SAW OPERATOR, ETELVINA L 441.4 Abdominal Aneurysm Without Mention Of Rupture 08/13/2010 MADL TREADLE CUT OFF SAW OPERATOR, ETELVINA L 724.2 lower back pain 08/13/2010 MADL TREADLE CUT OFF SAW OPERATOR, ETELVINA L 441.4 Abdominal Aneurysm Without Mention Of Rupture 08/13/2010 MADL TREADLE CUT OFF SAW OPERATOR, ETELVINA L 724.2 lower back pain 08/13/2010 MADL TREADLE CUT OFF SAW OPERATOR, ETELVINA L 441.4 Abdominal Aneurysm Without Mention Of Rupture 08/13/2010 MADL TREADLE CUT OFF SAW OPERATOR, ETELVINA L 724.2 lower back pain 08/13/2010 MADL TREADLE CUT OFF SAW OPERATOR, ETELVINA L 441.4 Abdominal Aneurysm Without Mention Of Rupture 08/13/2010 MADL TREADLE CUT OFF SAW OPERATOR, ETELVINA L 724.2 lower back pain 08/13/2010 SALGUERO DO, LADONNA K 441.4 Abdominal Aneurysm Without Mention Of Rupture 08/13/2010 SALGUERO DO, LADONNA K 724.2 lower back pain 08/13/2010 TERE SALGUERO DOA K 441.4 Abdominal Aneurysm Without Mention Of Rupture 08/13/2010 NOEMY DOTEREA K 724.2 lower back pain 08/13/2010 MADL TREADLE CUT OFF SAW OPERATORETELVINA Bowser L 441.4 Abdominal Aneurysm Without Mention Of Rupture 08/13/2010 HUGOL ETELVINA HARRIS L 724.2 lower back pain 08/13/2010 TERE SALGUERO DOA K 441.4 Abdominal Aneurysm Without Mention Of Rupture 08/13/2010 TERE SALGUERO DOA K 724.2 lower back pain 08/13/2010 MADL TREADLE CUT OFF SAW OPERATORHAMMAD BowserA L 441.4 Abdominal Aneurysm Without [...] Pain In Joint Site Unspecified 12/12/2010 MORGAN TREADLE CUT OFF SAW OPERATOR, LAURIE S 724.5 Back Pain, General 12/12/2010 MORGAN TREADLE CUT OFF SAW OPERATOR, LAURIE S 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 12/12/2010 MORGAN TREADLE CUT OFF SAW OPERATOR, LAURIE S 729.5 Arm Pain 12/12/2010 MORGAN TREADLE CUT OFF SAW OPERATOR, LAURIE S 719.40 Pain In Joint Site Unspecified 12/12/2010 MORGAN TREADLE CUT OFF SAW OPERATOR, LAURIE S 724.5 Back Pain, General 12/12/2010 MORGAN TREADLE CUT OFF SAW OPERATOR, LAURIE S 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 12/12/2010 MORGAN TREADLE CUT OFF SAW OPERATOR, LAURIE S 729.5 Arm Pain 12/12/2010 [...] LADONNA K 729.5 Arm Pain 12/12/2010 MADL TREADLE CUT OFF SAW OPERATOR, ETELVINA L 719.40 Pain In Joint Site Unspecified 12/12/2010 MADL TREADLE CUT OFF SAW OPERATOR, ETELVINA L 724.5 Back Pain, General 12/12/2010 MADL TREADLE CUT OFF SAW OPERATOR, ETELVINA L 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 12/12/2010 MADL TREADLE CUT OFF SAW OPERATOR, ETELVINA L 729.5 Arm Pain 12/12/2010 MADL TREADLE CUT OFF SAW OPERATOR, ETELVINA L 719.40 Pain In Joint Site Unspecified 12/12/2010 MADL TREADLE CUT OFF SAW OPERATOR, ETELVINA L 724.5 Back Pain, General 12/12/2010 MADL TREADLE CUT OFF SAW OPERATOR, ETELVINA L 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 12/12/2010 MADL TREADLE CUT OFF SAW OPERATOR, ETELVINA L 729.5 Arm Pain 12/12/2010 MADL TREADLE CUT OFF SAW OPERATOR, ETELVINA L 719.40 Pain In Joint Site Unspecified 12/12/2010 MADL TREADLE CUT OFF SAW OPERATOR, ETELVINA L 724.5 Back Pain, General 12/12/2010 MADL TREADLE CUT OFF SAW OPERATOR, ETELVINA L 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 12/12/2010 MADL TREADLE CUT OFF SAW OPERATOR, ETELVINA L 729.5 Arm Pain 12/12/2010 [...] LADONNA K 729.5 Arm Pain 12/12/2010 MADL TREADLE CUT OFF SAW OPERATOR, ETELVINA L 719.40 Pain In Joint Site Unspecified 12/12/2010 MADL TREADLE CUT OFF SAW OPERATOR, ETELVINA L 724.5 Back Pain, General 12/12/2010 MADL TREADLE CUT OFF SAW OPERATOR, ETELVINA L 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 12/12/2010 MADL TREADLE CUT OFF SAW OPERATOR, ETELVINA L 729.5 Arm Pain 12/12/2010 MADL TREADLE CUT OFF SAW OPERATOR, ETELVINA L 719.40 Pain In Joint Site Unspecified 12/12/2010 MADL TREADLE CUT OFF SAW OPERATOR, ETELVINA L 724.5 Back Pain, General 12/12/2010 MADL TREADLE CUT OFF SAW OPERATOR, ETELVINA L 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 12/12/2010 MADL TREADLE CUT OFF SAW OPERATOR, ETELVINA L 729.5 Arm Pain 12/12/2010 MADL TREADLE CUT OFF SAW OPERATOR, ETELVINA L 719.40 Pain In Joint Site Unspecified 12/12/2010 MADL TREADLE CUT OFF SAW OPERATOR, ETELVINA L 724.5 Back Pain, General 12/12/2010 MADL TREADLE CUT OFF SAW OPERATOR, ETELVINA L 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 12/12/2010 MADL TREADLE CUT OFF SAW OPERATOR, ETELVINA L 729.5 Arm Pain 12/12/2010 MADL TREADLE CUT OFF SAW OPERATOR, ETELVINA L 719.40 Pain In Joint Site Unspecified 12/12/2010 MADL TREADLE CUT OFF SAW OPERATOR, ETELVINA L 724.5 Back Pain, General 12/12/2010 MADL TREADLE CUT OFF SAW OPERATOR, ETELVINA L 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 12/12/2010 MADL TREADLE CUT OFF SAW OPERATOR, ETELVINA L 729.5 Arm Pain 12/12/2010 MADL TREADLE CUT OFF SAW OPERATOR, ETELVINA L 719.40 Pain In Joint Site Unspecified 12/12/2010 MADL TREADLE CUT OFF SAW OPERATOR, ETELVINA L 724.5 Back Pain, General 12/12/2010 MADL TREADLE CUT OFF SAW OPERATOR, ETELVINA L 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 12/12/2010 MADL TREADLE CUT OFF SAW OPERATOR, ETELVINA L 729.5 Arm Pain 12/12/2010 MADL TREADLE CUT OFF SAW OPERATOR, ETELVINA L 719.40 Pain In Joint Site Unspecified 12/12/2010 MADL TREADLE CUT OFF SAW OPERATOR, ETELVINA L 724.5 Back Pain, General 12/12/2010 MADL TREADLE CUT OFF SAW OPERATOR, ETELVINA L 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 12/12/2010 MADL TREADLE CUT OFF SAW OPERATOR, ETELVINA L 729.5 Arm Pain 12/12/2010 MADL TREADLE CUT OFF SAW OPERATOR, ETELVINA L 719.40 Pain In Joint Site Unspecified 12/12/2010 MADL TREADLE CUT OFF SAW OPERATOR, ETELVINA L 724.5 Back Pain, General 12/12/2010 MADL TREADLE CUT OFF SAW OPERATOR, ETELVINA L 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 12/12/2010 MADL TREADLE CUT OFF SAW OPERATOR, ETELVINA L 729.5 Arm Pain 12/12/2010 [...] LADONNA K 729.5 Arm Pain 12/12/2010 MADL TREADLE CUT OFF SAW OPERATOR, ETELVINA L 719.40 Pain In Joint Site Unspecified 12/12/2010 MADL TREADLE CUT OFF SAW OPERATOR, ETELVINA L 724.5 Back Pain, General 12/12/2010 MADL TREADLE CUT OFF SAW OPERATOR, ETELVINA L 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 12/12/2010 MADL TREADLE CUT OFF SAW OPERATOR, ETELVINA L 729.5 Arm Pain 12/12/2010 SALGUERO DO, LADONNA K 719.40 Pain In Joint Site Unspecified 12/12/2010 SALGUERO DO, LADONNA K 724.5 Back Pain, General 12/12/2010 SALGUERO DO, LADONNA K 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 12/12/2010 SALGUERO DO, LADONNA K 729.5 Arm Pain 12/12/2010 MADL TREADLE CUT OFF SAW OPERATOR, ETELVINA L 719.40 Pain In Joint Site Unspecified 12/12/2010 MADL TREADLE CUT OFF SAW OPERATOR, ETELVINA L 724.5 Back Pain, General 12/12/2010 MADL TREADLE CUT OFF SAW OPERATOR, ETELVINA L 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 12/12/2010 MADL TREADLE CUT OFF SAW OPERATOR, ETELVINA L 729.5 Arm Pain 01/22/2011 [...] V68.1 ISSUE OF REPEAT PRESCRIPTIONS 06/17/2011 MADL TREADLE CUT OFF SAW OPERATORHAMMAD BowserA L V68.1 ISSUE OF REPEAT PRESCRIPTIONS 06/17/2011 SALGUERO DOTEREA K V68.1 ISSUE OF REPEAT PRESCRIPTIONS 06/17/2011 SALGUERO DOTEREA K V68.1 ISSUE OF REPEAT PRESCRIPTIONS 06/17/2011 MADL TREADLE CUT OFF SAW OPERATORANDREZETELVINA L V68.1 ISSUE OF REPEAT PRESCRIPTIONS 06/17/2011 MADL TREADLE CUT OFF SAW OPERATORANDREZETELVINA L V68.1 ISSUE OF REPEAT PRESCRIPTIONS 06/17/2011 MADL TREADLE CUT OFF SAW OPERATOR, ETELVINA L V68.1 ISSUE OF REPEAT PRESCRIPTIONS 06/17/2011 MADL TREADLE CUT OFF SAW OPERATORSARAETELVINA L V68.1 ISSUE OF REPEAT PRESCRIPTIONS 06/17/2011 MADL TREADLE CUT OFF SAW OPERATOR, ETELVINA L V68.1 ISSUE OF REPEAT PRESCRIPTIONS 06/17/2011 MADL TREADLE CUT OFF SAW OPERATORANDREZ BowserNYA L V68.1 ISSUE OF REPEAT [...] TY 07/14/2011 Ot 414.01 CORONARY ATHEROSCLEROSIS OF [place] CORON 07/14/2011 Ot 496 CHR AIRWAY OBSTRUCT [...] (3 Yrs And Above, Im) 07/31/2011 MADL TREADLE CUT OFF SAW OPERATOR, ETELVINA L V04.81 Flu Dx (3 Yrs And Above, Im) 07/31/2011 MADL TREADLE CUT OFF SAW OPERATOR, ETELVINA L V04.81 Flu Dx (3 Yrs And Above, Im) 07/31/2011 MADL TREADLE CUT OFF SAW OPERATOR, ETELVINA L V04.81 Flu Dx (3 Yrs And Above, Im) 07/31/2011 SALGUERO DO, LADONNA K V04.81 Flu Dx (3 Yrs And Above, Im) 07/31/2011 SALGUERO DO, LADONNA K V04.81 Flu Dx (3 Yrs And Above, Im) 07/31/2011 MADL TREADLE CUT OFF SAW OPERATOR, ETELVINA L V04.81 Flu Dx (3 Yrs And Above, Im) 07/31/2011 MADL TREADLE CUT OFF SAW OPERATOR, ETELVINA L V04.81 Flu Dx (3 Yrs And Above, Im) 07/31/2011 MADL TREADLE CUT OFF SAW OPERATOR, ETELVINA L V04.81 Flu Dx (3 Yrs And Above, Im) 07/31/2011 MADL TREADLE CUT OFF SAW OPERATOR, ETELVINA L V04.81 Flu Dx (3 Yrs And Above, Im) 07/31/2011 MADL TREADLE CUT OFF SAW OPERATOR, ETELVINA L V04.81 Flu Dx (3 Yrs And Above, Im) 07/31/2011 MADL TREADLE CUT OFF SAW OPERATOR, ETELVINA L V04.81 Flu Dx (3 Yrs And Above, Im) 07/31/2011 MADL TREADLE CUT OFF SAW OPERATOR, ETELVINA L V04.81 Flu Dx (3 Yrs And Above, Im) 07/31/2011 SALGUERO DO, LADONNA K V04.81 Flu Dx (3 Yrs And Above, Im) 07/31/2011 SALGUERO DO, LADONNA K V04.81 Flu Dx (3 Yrs And Above, Im) 07/31/2011 MADL TREADLE CUT OFF SAW OPERATOR, ETELVINA L V04.81 Flu Dx (3 Yrs And Above, Im) 07/31/2011 SALGUERO DO, LADONNA K V04.81 Flu Dx (3 Yrs And Above, Im) 07/31/2011 MADL TREADLE CUT OFF SAW OPERATOR, ETELVINA L V04.81 Flu Dx (3 Yrs And Above, Im) 08/27/2011 MORGAN TREADLE CUT OFF SAW OPERATOR, LAURIE S 780.50 SLEEP DISTURBANCE, UNSPECIFIED 08/27/2011 780.50 Sleep Disturbance, Unspecified 08/27/2011 MORGAN TREADLE CUT OFF SAW OPERATOR, LAURIE S 780.50 Sleep Disturbance, Unspecified 08/27/2011 MORGAN TREADLE CUT OFF SAW OPERATOR, LAURIE S 780.50 Sleep Disturbance, Unspecified [...] K 780.50 Sleep Disturbance, Unspecified 08/27/2011 MADL TREADLE CUT OFF SAW OPERATOR, ETELVINA L 780.50 Sleep Disturbance, Unspecified 08/27/2011 MADL TREADLE CUT OFF SAW OPERATOR, ETELVINA L 780.50 Sleep Disturbance, Unspecified 08/27/2011 MADL TREADLE CUT OFF SAW OPERATOR, ETELVINA L 780.50 Sleep Disturbance, Unspecified 08/27/2011 SALGUERO DO, LADONNA K 780.50 Sleep Disturbance, Unspecified 08/27/2011 SALGUERO DO, LADONNA K 780.50 Sleep Disturbance, Unspecified 08/27/2011 MADL TREADLE CUT OFF SAW OPERATOR, ETELVINA L 780.50 Sleep Disturbance, Unspecified 08/27/2011 MADL TREADLE CUT OFF SAW OPERATOR, ETELVINA L 780.50 Sleep Disturbance, Unspecified 08/27/2011 MADL TREADLE CUT OFF SAW OPERATOR, ETELVINA L 780.50 Sleep Disturbance, Unspecified 08/27/2011 MADL TREADLE CUT OFF SAW OPERATOR, ETELVINA L 780.50 Sleep Disturbance, Unspecified 08/27/2011 MADL TREADLE CUT OFF SAW OPERATOR, ETELVINA L 780.50 Sleep Disturbance, Unspecified 08/27/2011 MADL TREADLE CUT OFF SAW OPERATOR, ETELVINA L 780.50 Sleep Disturbance, Unspecified 08/27/2011 MADL TREADLE CUT OFF SAW OPERATOR, ETELVINA L 780.50 Sleep Disturbance, Unspecified 08/27/2011 SALGUERO DO, LADONNA K 780.50 Sleep Disturbance, Unspecified 08/27/2011 SALGUERO DO, LADONNA K 780.50 Sleep Disturbance, Unspecified 08/27/2011 MADL TREADLE CUT OFF SAW OPERATOR, ETELVINA L 780.50 Sleep Disturbance, Unspecified 08/27/2011 SALGUERO DO, LADONNA K 780.50 Sleep Disturbance, Unspecified 08/27/2011 MADL TREADLE CUT OFF SAW OPERATOR, ETELVINA L 780.50 Sleep Disturbance, Unspecified 09/26/2011 MORGAN TREADLE CUT OFF SAW OPERATOR, LAURIE S 788.41 URINARY FREQUENCY 09/26/2011 MORGAN TREADLE CUT OFF SAW OPERATOR, LAURIE S 788.63 URINARY URGENCY 09/26/2011 788.41 Urinary Frequency 09/26/2011 788.63 Urinary Urgency 09/26/2011 MORGAN TREADLE CUT OFF SAW OPERATOR, LAURIE S 788.41 Urinary Frequency 09/26/2011 MORGAN TREADLE CUT OFF SAW OPERATOR, LAURIE S 788.63 Urinary Urgency 09/26/2011 MORGAN TREADLE CUT OFF SAW OPERATOR, LAURIE S 788.41 Urinary Frequency 09/26/2011 MORGAN TREADLE CUT OFF SAW OPERATOR, LAURIE S 788.63 Urinary Urgency 09/26/2011 [...] BYRON BOSS MD 788.63 Urinary Urgency 09/26/2011 SALUGERO DO, LADONNA K 788.41 Urinary Frequency 09/26/2011 [...] LADONNA K 788.63 Urinary Urgency 09/26/2011 MADL TREADLE CUT OFF SAW OPERATOR, ETELVINA L 788.41 Urinary Frequency 09/26/2011 MADL TREADLE CUT OFF SAW OPERATOR, ETELVINA L 788.63 Urinary Urgency 09/26/2011 MADL TREADLE CUT OFF SAW OPERATOR, ETELVINA L 788.41 Urinary Frequency 09/26/2011 MADL TREADLE CUT OFF SAW OPERATOR, ETELVINA L 788.63 Urinary Urgency 09/26/2011 MADL TREADLE CUT OFF SAW OPERATOR, ETELVINA L 788.41 Urinary Frequency 09/26/2011 MADL TREADLE CUT OFF SAW OPERATOR, ETELVINA L 788.63 Urinary Urgency 09/26/2011 SALGUERO DO, LADONNA K 788.41 Urinary Frequency 09/26/2011 SALGUERO DO, LADONNA K 788.63 Urinary Urgency 09/26/2011 SALGUERO DO, LADONNA K 788.41 Urinary Frequency 09/26/2011 SALGUERO DO, LADONNA K 788.63 Urinary Urgency 09/26/2011 MADL TREADLE CUT OFF SAW OPERATOR, ETELVINA L 788.41 Urinary Frequency 09/26/2011 MADL TREADLE CUT OFF SAW OPERATOR, ETELVINA L 788.63 Urinary Urgency 09/26/2011 MADL TREADLE CUT OFF SAW OPERATOR, ETELVINA L 788.41 Urinary Frequency 09/26/2011 MADL TREADLE CUT OFF SAW OPERATOR, ETELVINA L 788.63 Urinary Urgency 09/26/2011 MADL TREADLE CUT OFF SAW OPERATOR, ETELVINA L 788.41 Urinary Frequency 09/26/2011 MADL TREADLE CUT OFF SAW OPERATOR, ETELVINA L 788.63 Urinary Urgency 09/26/2011 MADL TREADLE CUT OFF SAW OPERATOR, ETELVINA L 788.41 Urinary Frequency 09/26/2011 MADL TREADLE CUT OFF SAW OPERATOR, ETELVINA L 788.63 Urinary Urgency 09/26/2011 MADL TREADLE CUT OFF SAW OPERATOR, ETELVINA L 788.41 Urinary Frequency 09/26/2011 MADL TREADLE CUT OFF SAW OPERATOR, ETELVINA L 788.63 Urinary Urgency 09/26/2011 MADL TREADLE CUT OFF SAW OPERATOR, ETELVINA L 788.41 Urinary Frequency 09/26/2011 MADL TREADLE CUT OFF SAW OPERATOR, ETELVINA L 788.63 Urinary Urgency 09/26/2011 MADL TREADLE CUT OFF SAW OPERATOR, ETELVINA L 788.41 Urinary Frequency 09/26/2011 MADL TREADLE CUT OFF SAW OPERATOR, ETELVINA L 788.63 Urinary Urgency 09/26/2011 SALGUERO DO, LADONNA K 788.41 Urinary Frequency 09/26/2011 SALGUERO DO, LADONNA K 788.63 Urinary Urgency 09/26/2011 SALGUERO DO, LADONNA K 788.41 Urinary Frequency 09/26/2011 SALGUERO DO, LADONNA K 788.63 Urinary Urgency 09/26/2011 MADL TREADLE CUT OFF SAW OPERATOR, ETELVINA L 788.41 Urinary Frequency 09/26/2011 MADL TREADLE CUT OFF SAW OPERATOR, ETELVINA L 788.63 Urinary Urgency 09/26/2011 SALGUERO DO, LADONNA K 788.41 Urinary Frequency 09/26/2011 SALGUERO DO, LADONNA K 788.63 Urinary Urgency 09/26/2011 MADL TREADLE CUT OFF SAW OPERATOR, ETELVINA L 788.41 Urinary Frequency 09/26/2011 MADL TREADLE CUT OFF SAW OPERATOR, ETELVINA L 788.63 Urinary Urgency 10/18/2011 [...] PAIN 11/11/2011 Ot 414.01 CORONARY ATHEROSCLEROSIS OF [place] CORON 11/11/2011 Ot 424.1 AORTIC VALVE DISORDER [...] LADONNA K 461.9 Sinusitis Acute 12/04/2011 MADL TREADLE CUT OFF SAW OPERATOR, ETELVINA L 461.9 Sinusitis Acute 12/04/2011 MADL TREADLE CUT OFF SAW OPERATOR, ETELVINA L 461.9 Sinusitis Acute 12/04/2011 MADL TREADLE CUT OFF SAW OPERATOR, ETELVINA L 461.9 Sinusitis Acute 12/04/2011 SALGUERO DO, LADONNA K 461.9 Sinusitis Acute 12/04/2011 SALGUERO DO, LADONNA K 461.9 Sinusitis Acute 12/04/2011 MADL TREADLE CUT OFF SAW OPERATOR, ETELVINA L 461.9 Sinusitis Acute 12/04/2011 MADL TREADLE CUT OFF SAW OPERATOR, ETELVINA L 461.9 Sinusitis Acute 12/04/2011 MADL TREADLE CUT OFF SAW OPERATOR, ETELVINA L 461.9 Sinusitis Acute 12/04/2011 MADL TREADLE CUT OFF SAW OPERATOR, ETELVINA L 461.9 Sinusitis Acute 12/04/2011 MADL TREADLE CUT OFF SAW OPERATOR, ETELVINA L 461.9 Sinusitis Acute 12/04/2011 MADL TREADLE CUT OFF SAW OPERATOR, ETELVINA L 461.9 Sinusitis Acute 12/04/2011 MADL TREADLE CUT OFF SAW OPERATOR, ETELVINA L 461.9 Sinusitis Acute 12/04/2011 SALGUERO DO, LADONNA K 461.9 Sinusitis Acute 12/04/2011 SALGUERO DO, LADONNA K 461.9 Sinusitis Acute 12/04/2011 MADL TREADLE CUT OFF SAW OPERATOR, ETELVINA L 461.9 Sinusitis Acute 12/04/2011 SALGUERO DO, LADONNA K 461.9 Sinusitis Acute 12/04/2011 MADL TREADLE CUT OFF SAW OPERATOR, ETELVINA L 461.9 Sinusitis Acute 12/19/2011 MORGAN TREADLE CUT OFF SAW OPERATOR, LAURIE S 486 PNEUMONIA UNSPECIFIED 12/19/2011 MORGAN TREADLE CUT OFF SAW OPERATOR, LAURIE S 786.2 COUGH 12/19/2011 486 Pneumonia Unspecified 12/19/2011 786.2 Cough 12/19/2011 MORGAN TREADLE CUT OFF SAW OPERATOR, LAURIE S 486 Pneumonia Unspecified 12/19/2011 MORGAN TREADLE CUT OFF SAW OPERATOR, LAURIE S 786.2 Cough 12/19/2011 MORGAN TREADLE CUT OFF SAW OPERATOR, LAURIE S 486 Pneumonia Unspecified 12/19/2011 MORGAN TREADLE CUT OFF SAW OPERATOR, LAURIE S 786.2 Cough 12/19/2011 ROMELIA [...] DO, LADONNA K 786.2 Cough 12/19/2011 MADL TREADLE CUT OFF SAW OPERATOR, ETELVINA L 486 Pneumonia Unspecified 12/19/2011 MADL TREADLE CUT OFF SAW OPERATOR, ETELVINA L 786.2 Cough 12/19/2011 MADL TREADLE CUT OFF SAW OPERATOR, ETELVINA L 486 Pneumonia Unspecified 12/19/2011 MADL TREADLE CUT OFF SAW OPERATOR, ETELVINA L 786.2 Cough 12/19/2011 MADL TREADLE CUT OFF SAW OPERATOR, ETELVINA L 486 Pneumonia Unspecified 12/19/2011 MADL TREADLE CUT OFF SAW OPERATOR, ETELVINA L 786.2 Cough 12/19/2011 SALGUERO DO, LADONNA K 486 Pneumonia Unspecified 12/19/2011 SALGUERO DO, LADONNA K 786.2 Cough 12/19/2011 SALGUERO DO, LADONNA K 486 Pneumonia Unspecified 12/19/2011 SALGUERO DO, LADONNA K 786.2 Cough 12/19/2011 MADL TREADLE CUT OFF SAW OPERATOR, ETELVINA L 486 Pneumonia Unspecified 12/19/2011 MADL TREADLE CUT OFF SAW OPERATOR, ETELVINA L 786.2 Cough 12/19/2011 MADL TREADLE CUT OFF SAW OPERATOR, ETELVINA L 486 Pneumonia Unspecified 12/19/2011 MADL TREADLE CUT OFF SAW OPERATOR, ETELVINA L 786.2 Cough 12/19/2011 MADL TREADLE CUT OFF SAW OPERATOR, ETELVINA L 486 Pneumonia Unspecified 12/19/2011 MADL TREADLE CUT OFF SAW OPERATOR, ETELVINA L 786.2 Cough 12/19/2011 MADL TREADLE CUT OFF SAW OPERATOR, ETELVINA L 486 Pneumonia Unspecified 12/19/2011 MADL TREADLE CUT OFF SAW OPERATOR, ETELVINA L 786.2 Cough 12/19/2011 MADL TREADLE CUT OFF SAW OPERATOR, ETELVINA L 486 Pneumonia Unspecified 12/19/2011 MADL TREADLE CUT OFF SAW OPERATOR, ETELVINA L 786.2 Cough 12/19/2011 MADL TREADLE CUT OFF SAW OPERATOR, ETELVINA L 486 Pneumonia Unspecified 12/19/2011 MADL TREADLE CUT OFF SAW OPERATOR, ETELVINA L 786.2 Cough 12/19/2011 MADL TREADLE CUT OFF SAW OPERATOR, ETELVINA L 486 Pneumonia Unspecified 12/19/2011 MADL TREADLE CUT OFF SAW OPERATOR, ETELVINA L 786.2 Cough 12/19/2011 SALGUERO DO, LADONNA K 486 Pneumonia Unspecified 12/19/2011 SALGUERO DO, LADONNA K 786.2 Cough 12/19/2011 SALGUERO DO, LADONNA K 486 Pneumonia Unspecified 12/19/2011 SALGUERO DO, LADONNA K 786.2 Cough 12/19/2011 MADL TREADLE CUT OFF SAW OPERATOR, ETELVINA L 486 Pneumonia Unspecified 12/19/2011 MADL TREADLE CUT OFF SAW OPERATOR, ETELVINA L 786.2 Cough 12/19/2011 SALGUERO DO, LADONNA K 486 Pneumonia Unspecified 12/19/2011 SALGUERO DO, LADONNA K 786.2 Cough 12/19/2011 MADL TREADLE CUT OFF SAW OPERATOR, ETELVINA L 486 Pneumonia Unspecified 12/19/2011 MADL TREADLE CUT OFF SAW OPERATOR, ETELVINA L 786.2 Cough 01/06/2012 MORGAN HARRIS LAURIE S 491.9 BRONCHITIS, CHRONIC UNSPEC 01/06/2012 PALOMA MORA APRNNDA S 780.79 MALAISE AND FATIGUE 01/06/2012 491.9 Bronchitis, Chronic Unspec 01/06/2012 780.79 Malaise And Fatigue 01/06/2012 MORGAN TREADLE CUT OFF SAW OPERATOR, LAURIE S 491.9 Bronchitis, Chronic Unspec 01/06/2012 MORGAN TREADLE CUT OFF SAW OPERATOR, LAURIE S 780.79 Malaise And Fatigue 01/06/2012 MORGAN TREADLE CUT OFF SAW OPERATOR, LAURIE S 491.9 Bronchitis, Chronic Unspec 01/06/2012 MORGAN TREADLE CUT OFF SAW OPERATOR, LAURIE S 780.79 Malaise And Fatigue [...] K 780.79 Malaise And Fatigue 01/06/2012 MADL TREADLE CUT OFF SAW OPERATOR, ETELVINA L 491.9 Bronchitis, Chronic Unspec 01/06/2012 MADL TREADLE CUT OFF SAW OPERATOR, ETELVINA L 780.79 Malaise And Fatigue 01/06/2012 MADL TREADLE CUT OFF SAW OPERATOR, ETELVINA L 491.9 Bronchitis, Chronic Unspec 01/06/2012 MADL TREADLE CUT OFF SAW OPERATOR, ETELVINA L 780.79 Malaise And Fatigue 01/06/2012 MADL TREADLE CUT OFF SAW OPERATOR, ETELVINA L 491.9 Bronchitis, Chronic Unspec 01/06/2012 MADL TREADLE CUT OFF SAW OPERATOR, ETELVINA L 780.79 Malaise And Fatigue 01/06/2012 SALGUERO DO, LADONNA K 491.9 Bronchitis, Chronic Unspec 01/06/2012 SALGUERO DO, LADONNA K 780.79 Malaise And Fatigue 01/06/2012 SALGUERO DO, LADONNA K 491.9 Bronchitis, Chronic Unspec 01/06/2012 SALGUERO DO, LADONNA K 780.79 Malaise And Fatigue 01/06/2012 MADL TREADLE CUT OFF SAW OPERATOR, ETELVINA L 491.9 Bronchitis, Chronic Unspec 01/06/2012 MADL TREADLE CUT OFF SAW OPERATOR, ETELVINA L 780.79 Malaise And Fatigue 01/06/2012 MADL TREADLE CUT OFF SAW OPERATOR, ETELVINA L 491.9 Bronchitis, Chronic Unspec 01/06/2012 MADL TREADLE CUT OFF SAW OPERATOR, ETELVINA L 780.79 Malaise And Fatigue 01/06/2012 MADL TREADLE CUT OFF SAW OPERATOR, ETELVINA L 491.9 Bronchitis, Chronic Unspec 01/06/2012 MADL TREADLE CUT OFF SAW OPERATOR, ETELVINA L 780.79 Malaise And Fatigue 01/06/2012 MADL TREADLE CUT OFF SAW OPERATOR, ETELVINA L 491.9 Bronchitis, Chronic Unspec 01/06/2012 MADL TREADLE CUT OFF SAW OPERATOR, ETELVINA L 780.79 Malaise And Fatigue 01/06/2012 MADL TREADLE CUT OFF SAW OPERATOR, ETELVINA L 491.9 Bronchitis, Chronic Unspec 01/06/2012 MADL TREADLE CUT OFF SAW OPERATOR, ETELVINA L 780.79 Malaise And Fatigue 01/06/2012 MADL TREADLE CUT OFF SAW OPERATOR, ETELVINA L 491.9 Bronchitis, Chronic Unspec 01/06/2012 MADL TREADLE CUT OFF SAW OPERATOR, ETELVINA L 780.79 Malaise And Fatigue 01/06/2012 MADL TREADLE CUT OFF SAW OPERATOR, ETELVINA L 491.9 Bronchitis, Chronic Unspec 01/06/2012 MADL TREADLE CUT OFF SAW OPERATOR, ETELVINA L 780.79 Malaise And Fatigue 01/06/2012 SALGUERO DO, LADONNA K 491.9 Bronchitis, Chronic Unspec 01/06/2012 SALGUERO DO, LADONNA K 780.79 Malaise And Fatigue 01/06/2012 SALGUERO DO, LADONNA K 491.9 Bronchitis, Chronic Unspec 01/06/2012 SALGUERO DO, LADONNA K 780.79 Malaise And Fatigue 01/06/2012 MADL TREADLE CUT OFF SAW OPERATORETELVINA Bowser L 491.9 Bronchitis, Chronic Unspec 01/06/2012 MADL TREADLE CUT OFF SAW OPERATOR ETELVINA L 780.79 Malaise And Fatigue 01/06/2012 SALGUERO DO, LADONNA K 491.9 Bronchitis, Chronic Unspec 01/06/2012 SALGUERO DO, LADONNA K 780.79 Malaise And Fatigue 01/06/2012 MADL TREADLE CUT OFF SAW OPERATOR, ETELVINA L 491.9 Bronchitis, Chronic Unspec 01/06/2012 HUGOL TREADLE CUT OFF SAW OPERATOR ETELVINA L 780.79 Malaise And Fatigue [...] NOS 01/30/2012 Ot 414.01 CORONARY ATHEROSCLEROSIS OF [place] CORON 01/30/2012 Ot 424.1 AORTIC VALVE DISORDER [...] DISORDER 02/02/2012 Ot 414.01 CORONARY ATHEROSCLEROSIS OF [place] CORON 02/02/2012 Ot 458.9 HYPOTENSION NOS 02/02/2012 [...] Angioneurotic Edema Not Elsewhere Classified 02/04/2012 MADL TREADLE CUT OFF SAW OPERATOR, ETELVINA L 728.88 Rhabdomyolysis 02/04/2012 MADL TREADLE CUT OFF SAW OPERATOR, ETELVINA L 995.1 Angioneurotic Edema Not Elsewhere Classified 02/04/2012 MADL TREADLE CUT OFF SAW OPERATOR, ETELVINA L 728.88 Rhabdomyolysis 02/04/2012 MADL TREADLE CUT OFF SAW OPERATOR, ETELVINA L 995.1 Angioneurotic Edema Not Elsewhere Classified 02/04/2012 MADL TREADLE CUT OFF SAW OPERATOR, ETELVINA L 728.88 Rhabdomyolysis 02/04/2012 MADL TREADLE CUT OFF SAW OPERATOR, ETELVINA L 995.1 Angioneurotic Edema Not Elsewhere Classified 02/04/2012 SALGUERO DO, LADONNA K 728.88 Rhabdomyolysis 02/04/2012 SALGUERO DO, LADONNA K 995.1 Angioneurotic Edema Not Elsewhere Classified 02/04/2012 SALGUERO DO, LADONNA K 728.88 Rhabdomyolysis 02/04/2012 SALGUERO DO, LADONNA K 995.1 Angioneurotic Edema Not Elsewhere Classified 02/04/2012 MADL TREADLE CUT OFF SAW OPERATOR, ETELVINA L 728.88 Rhabdomyolysis 02/04/2012 MADL TREADLE CUT OFF SAW OPERATOR, ETELVINA L 995.1 Angioneurotic Edema Not Elsewhere Classified 02/04/2012 MADL TREADLE CUT OFF SAW OPERATOR, ETELVINA L 728.88 Rhabdomyolysis 02/04/2012 MADL TREADLE CUT OFF SAW OPERATOR, ETELVINA L 995.1 Angioneurotic Edema Not Elsewhere Classified 02/04/2012 MADL TREADLE CUT OFF SAW OPERATOR, ETELVINA L 728.88 Rhabdomyolysis 02/04/2012 MADL TREADLE CUT OFF SAW OPERATOR, ETELVINA L 995.1 Angioneurotic Edema Not Elsewhere Classified 02/04/2012 MADL TREADLE CUT OFF SAW OPERATOR, ETELVINA L 728.88 Rhabdomyolysis 02/04/2012 MADL TREADLE CUT OFF SAW OPERATOR, ETELVINA L 995.1 Angioneurotic Edema Not Elsewhere Classified 02/04/2012 MADL TREADLE CUT OFF SAW OPERATOR, ETELVINA L 728.88 Rhabdomyolysis 02/04/2012 MADL TREADLE CUT OFF SAW OPERATOR, ETELVINA L 995.1 Angioneurotic Edema Not Elsewhere Classified 02/04/2012 MADL TREADLE CUT OFF SAW OPERATOR, ETELVINA L 728.88 Rhabdomyolysis 02/04/2012 MADL TREADLE CUT OFF SAW OPERATOR, ETELVINA L 995.1 Angioneurotic Edema Not Elsewhere Classified 02/04/2012 MADL TREADLE CUT OFF SAW OPERATOR, ETELVINA L 728.88 Rhabdomyolysis 02/04/2012 MADL TREADLE CUT OFF SAW OPERATOR, ETELVINA L 995.1 Angioneurotic Edema Not Elsewhere Classified 02/04/2012 SALGUERO DO, LADONNA K 728.88 Rhabdomyolysis 02/04/2012 SALGUERO DO, LADONNA K 995.1 Angioneurotic Edema Not Elsewhere Classified 02/04/2012 SALGUERO DO, LADONNA K 728.88 Rhabdomyolysis 02/04/2012 SALGUERO DO, LADONNA K 995.1 Angioneurotic Edema Not Elsewhere Classified 02/04/2012 MADL TREADLE CUT OFF SAW OPERATOR, ETELVINA L 728.88 Rhabdomyolysis 02/04/2012 MADL TREADLE CUT OFF SAW OPERATOR, ETELVINA L 995.1 Angioneurotic Edema Not Elsewhere Classified 02/04/2012 SALGUERO DO, LADONNA K 728.88 Rhabdomyolysis 02/04/2012 SALGUERO DO, LADONNA K 995.1 Angioneurotic Edema Not Elsewhere Classified 02/04/2012 MADL TREADLE CUT OFF SAW OPERATOR, ETELVINA L 728.88 Rhabdomyolysis 02/04/2012 MADL TREADLE CUT OFF SAW OPERATOR, ETELVINA L 995.1 Angioneurotic Edema Not [...] DO, LADONNA K 782.3 EDEMA 02/06/2012 MADL TREADLE CUT OFF SAW OPERATOR, ETELVINA L 782.3 EDEMA 02/06/2012 MADL TREADLE CUT OFF SAW OPERATOR, ETELVINA L 782.3 EDEMA 02/06/2012 MADL TREADLE CUT OFF SAW OPERATOR, ETELVINA L 782.3 EDEMA 02/06/2012 SALGUERO DO, LADONNA K 782.3 EDEMA 02/06/2012 SALGUERO DO, LADONNA K 782.3 EDEMA 02/06/2012 MADL TREADLE CUT OFF SAW OPERATOR, ETELVINA L 782.3 EDEMA 02/06/2012 MADL TREADLE CUT OFF SAW OPERATOR, ETELVINA L 782.3 EDEMA 02/06/2012 MADL TREADLE CUT OFF SAW OPERATOR, ETELVINA L 782.3 EDEMA 02/06/2012 MADL TREADLE CUT OFF SAW OPERATOR, ETELVINA L 782.3 EDEMA 02/06/2012 MADL TREADLE CUT OFF SAW OPERATOR, ETELVINA L 782.3 EDEMA 02/06/2012 MADL TREADLE CUT OFF SAW OPERATOR, ETELVINA L 782.3 EDEMA 02/06/2012 MADL TREADLE CUT OFF SAW OPERATOR, ETELVINA L 782.3 EDEMA 02/06/2012 SALGUERO DO, LADONNA K 782.3 EDEMA 02/06/2012 SALGUERO DO, LADONNA K 782.3 EDEMA 02/06/2012 MADL TREADLE CUT OFF SAW OPERATOR, ETELVINA L 782.3 EDEMA 02/06/2012 SALGUERO DO, LADONNA K 782.3 EDEMA 02/06/2012 MADL TREADLE CUT OFF SAW OPERATOR, ETELVINA L 782.3 EDEMA 02/11/2012 MORGAN TREADLE CUT OFF SAW OPERATOR, LAURIE S 079.99 VIRAL SYNDROME 02/11/2012 079.99 Viral Syndrome 02/11/2012 MORGAN TREADLE CUT OFF SAW OPERATOR, LAURIE S 079.99 Viral Syndrome 02/11/2012 MORGAN TREADLE CUT OFF SAW OPERATOR, LAURIE S 079.99 Viral Syndrome 02/11/2012 [...] DOA K 079.99 Viral Syndrome 02/11/2012 MADL TREADLE CUT OFF SAW OPERATOR, ETELVINA L 079.99 Viral Syndrome 02/11/2012 MADL TREADLE CUT OFF SAW OPERATOR, ETELVINA L 079.99 Viral Syndrome 02/11/2012 MADL TREADLE CUT OFF SAW OPERATOR, ETELVINA L 079.99 Viral Syndrome 02/11/2012 NOEMY PRAKASH LADONNA K 079.99 Viral Syndrome 02/11/2012 SALGUERO DO LADONNA K 079.99 Viral Syndrome 02/11/2012 MADL TREADLE CUT OFF SAW OPERATOR, ETELVINA L 079.99 Viral Syndrome 02/11/2012 MADL TREADLE CUT OFF SAW OPERATOR, ETELVINA L 079.99 Viral Syndrome 02/11/2012 MADL TREADLE CUT OFF SAW OPERATOR, ETELVINA L 079.99 Viral Syndrome 02/11/2012 MADL TREADLE CUT OFF SAW OPERATOR, ETELVINA L 079.99 Viral Syndrome 02/11/2012 MADL TREADLE CUT OFF SAW OPERATOR, ETELVINA L 079.99 Viral Syndrome 02/11/2012 MADL TREADLE CUT OFF SAW OPERATOR, ETELVINA L 079.99 Viral Syndrome 02/11/2012 MADL TREADLE CUT OFF SAW OPERATOR, ETELVINA L 079.99 Viral Syndrome 02/11/2012 SALGUERO DO, LADONNA K 079.99 Viral Syndrome 02/11/2012 SALGUERO DO, LADONNA K 079.99 Viral Syndrome 02/11/2012 MADL TREADLE CUT OFF SAW OPERATOR, ETELVINA L 079.99 Viral Syndrome 02/11/2012 SALGUERO DO, LADONNA K 079.99 Viral Syndrome 02/11/2012 MADL TREADLE CUT OFF SAW OPERATOR, ETELVINA L 079.99 Viral Syndrome 02/17/2012 [...] LADONNA K 783.21 Weight Loss 02/17/2012 MADL TREADLE CUT OFF SAW OPERATOR, ETELVINA L 783.21 Weight Loss 02/17/2012 MADL TREADLE CUT OFF SAW OPERATOR, ETELVINA L 783.21 Weight Loss 02/17/2012 MADL TREADLE CUT OFF SAW OPERATOR, ETELVINA L 783.21 Weight Loss 02/17/2012 SALGUERO DO, LADONNA K 783.21 Weight Loss 02/17/2012 SALGUERO DO, LADONNA K 783.21 Weight Loss 02/17/2012 MADL TREADLE CUT OFF SAW OPERATOR, ETELVINA L 783.21 Weight Loss 02/17/2012 MADL TREADLE CUT OFF SAW OPERATOR, ETELVINA L 783.21 Weight Loss 02/17/2012 MADL TREADLE CUT OFF SAW OPERATOR, ETELVINA L 783.21 Weight Loss 02/17/2012 MADL TREADLE CUT OFF SAW OPERATOR, ETELVINA L 783.21 Weight Loss 02/17/2012 MADL TREADLE CUT OFF SAW OPERATOR, ETELVINA L 783.21 Weight Loss 02/17/2012 MADL TREADLE CUT OFF SAW OPERATOR, ETELVINA L 783.21 Weight Loss 02/17/2012 MADL TREADLE CUT OFF SAW OPERATOR, ETELVINA L 783.21 Weight Loss 02/17/2012 SALGUERO DO, LADONNA K 783.21 Weight Loss 02/17/2012 SALGUERO DO, LADONNA K 783.21 Weight Loss 02/17/2012 MADL TREADLE CUT OFF SAW OPERATOR, ETELVINA L 783.21 Weight Loss 02/17/2012 SALGUERO DO, LADONNA K 783.21 Weight Loss 02/17/2012 MADL TREADLE CUT OFF SAW OPERATOR, ETELVINA L 783.21 Weight Loss 02/24/2012 [...] DO, LADONNA K 787.91 Diarrhea 02/24/2012 MADL TREADLE CUT OFF SAW OPERATOR, ETELVINA L 787.91 Diarrhea 02/24/2012 MADL TREADLE CUT OFF SAW OPERATOR, ETELVINA L 787.91 Diarrhea 02/24/2012 MADL TREADLE CUT OFF SAW OPERATOR, ETELVINA L 787.91 Diarrhea 02/24/2012 SALGUERO DO, LADONNA K 787.91 Diarrhea 02/24/2012 SALGUERO DO, LADONNA K 787.91 Diarrhea 02/24/2012 MADL TREADLE CUT OFF SAW OPERATOR, ETELVINA L 787.91 Diarrhea 02/24/2012 MADL TREADLE CUT OFF SAW OPERATOR, ETELVINA L 787.91 Diarrhea 02/24/2012 MADL TREADLE CUT OFF SAW OPERATOR, ETELVINA L 787.91 Diarrhea 02/24/2012 MADL TREADLE CUT OFF SAW OPERATOR, ETELVINA L 787.91 Diarrhea 02/24/2012 MADL TREADLE CUT OFF SAW OPERATOR, ETELVINA L 787.91 Diarrhea 02/24/2012 MADL TREADLE CUT OFF SAW OPERATOR, ETELVINA L 787.91 Diarrhea 02/24/2012 MADL TREADLE CUT OFF SAW OPERATOR, ETELVINA L 787.91 Diarrhea 02/24/2012 SALGUERO DO, LADONNA K 787.91 Diarrhea 02/24/2012 SALGUERO DO, LADONNA K 787.91 Diarrhea 02/24/2012 MADL TREADLE CUT OFF SAW OPERATOR, ETELVINA L 787.91 Diarrhea 02/24/2012 SALGUERO DO, LADONNA K 787.91 Diarrhea 02/24/2012 MADL TREADLE CUT OFF SAW OPERATOR, ETELVINA L 787.91 Diarrhea 04/07/2012 MORGAN TREADLE CUT OFF SAW OPERATORLAURIE S 787.20 DYSPHAGIA, UNSPECIFIED 04/07/2012 787.20 Dysphagia, Unspecified 04/07/2012 MORGAN TREADLE CUT OFF SAW OPERATORLAURIE S 787.20 Dysphagia, Unspecified 04/07/2012 MORGAN TREADLE CUT OFF SAW OPERATORLAURIE S 787.20 Dysphagia, Unspecified 04/07/2012 AMADO [...] LADONNA K 787.20 Dysphagia, Unspecified 04/07/2012 MADL TREADLE CUT OFF SAW OPERATOR, ETELVINA L 787.20 Dysphagia, Unspecified 04/07/2012 MADL TREADLE CUT OFF SAW OPERATOR, ETELVINA L 787.20 Dysphagia, Unspecified 04/07/2012 MADL TREADLE CUT OFF SAW OPERATOR, ETELVINA L 787.20 Dysphagia, Unspecified 04/07/2012 SALGUERO DO, LADONNA K 787.20 Dysphagia, Unspecified 04/07/2012 SALGUERO DO, LADONNA K 787.20 Dysphagia, Unspecified 04/07/2012 MADL TREADLE CUT OFF SAW OPERATOR, ETELVINA L 787.20 Dysphagia, Unspecified 04/07/2012 MADL TREADLE CUT OFF SAW OPERATOR, ETELVINA L 787.20 Dysphagia, Unspecified 04/07/2012 MADL TREADLE CUT OFF SAW OPERATOR, ETELVINA L 787.20 Dysphagia, Unspecified 04/07/2012 MADL TREADLE CUT OFF SAW OPERATOR, ETELVINA L 787.20 Dysphagia, Unspecified 04/07/2012 MADL TREADLE CUT OFF SAW OPERATOR, ETELVINA L 787.20 Dysphagia, Unspecified 04/07/2012 MADL TREADLE CUT OFF SAW OPERATOR, ETELVINA L 787.20 Dysphagia, Unspecified 04/07/2012 MADL TREADLE CUT OFF SAW OPERATOR, ETELVINA L 787.20 Dysphagia, Unspecified 04/07/2012 SALGUERO DO, LADONNA K 787.20 Dysphagia, Unspecified 04/07/2012 SALGUERO DO, LADONNA K 787.20 Dysphagia, Unspecified 04/07/2012 MADL TREADLE CUT OFF SAW OPERATOR, ETELVINA L 787.20 Dysphagia, Unspecified 04/07/2012 SALGUERO DO, LADONNA K 787.20 Dysphagia, Unspecified 04/07/2012 MADL TREADLE CUT OFF SAW OPERATOR, ETELVINA L 787.20 Dysphagia, Unspecified 04/16/2012 [...] Cervical Cancer Screening (pap Smear) 09/07/2012 MADMaxine TREADLE CUT OFF SAW OPERATOR, ETELVINA L V03.82 Ppv23 (pneumovax) Dx 09/07/2012 MADMaxine TREADLE CUT OFF SAW OPERATOR, ETELVINA L V76.10 Breast Cancer Screening 09/07/2012 MADL TREADLE CUT OFF SAW OPERATOR, ETELVINA L V76.12 Mammogram Screening 09/07/2012 MADMaxine TREADLE CUT OFF SAW OPERATOR, ETELVINA L V76.2 Cervical Cancer Screening (pap Smear) 09/07/2012 MADMaxine TREADLE CUT OFF SAW OPERATOR, ETELVINA L V03.82 Ppv23 (pneumovax) Dx 09/07/2012 MADMaxine TREADLE CUT OFF SAW OPERATOR, ETELVINA L V76.10 Breast Cancer Screening 09/07/2012 MADL TREADLE CUT OFF SAW OPERATOR, ETELVINA L V76.12 Mammogram Screening 09/07/2012 MADL TREADLE CUT OFF SAW OPERATOR, ETELVINA L V76.2 Cervical Cancer Screening (pap Smear) 09/07/2012 MADL TREADLE CUT OFF SAW OPERATOR, ETELVINA L V03.82 Ppv23 (pneumovax) Dx 09/07/2012 MADL TREADLE CUT OFF SAW OPERATOR, ETELVINA L V76.10 Breast Cancer Screening 09/07/2012 MADL TREADLE CUT OFF SAW OPERATOR, ETELVINA L V76.12 Mammogram Screening 09/07/2012 MADL TREADLE CUT OFF SAW OPERATOR, ETELVINA L V76.2 Cervical Cancer Screening [...] Cervical Cancer Screening (pap Smear) 09/07/2012 MADL TREADLE CUT OFF SAW OPERATOR, ETELVINA L V03.82 Ppv23 (pneumovax) Dx 09/07/2012 MADL TREADLE CUT OFF SAW OPERATOR, ETELVINA L V76.10 Breast Cancer Screening 09/07/2012 MADL TREADLE CUT OFF SAW OPERATOR, ETELVINA L V76.12 Mammogram Screening 09/07/2012 MADL TREADLE CUT OFF SAW OPERATOR, ETELVINA L V76.2 Cervical Cancer Screening (pap Smear) 09/07/2012 MADL TREADLE CUT OFF SAW OPERATOR, ETELVINA L V03.82 Ppv23 (pneumovax) Dx 09/07/2012 MADL TREADLE CUT OFF SAW OPERATOR, ETELVINA L V76.10 Breast Cancer Screening 09/07/2012 MADL TREADLE CUT OFF SAW OPERATOR, ETELVINA L V76.12 Mammogram Screening 09/07/2012 MADL TREADLE CUT OFF SAW OPERATOR, ETELVINA L V76.2 Cervical Cancer Screening (pap Smear) 09/07/2012 MADL TREADLE CUT OFF SAW OPERATOR, ETELVINA L V03.82 Ppv23 (pneumovax) Dx 09/07/2012 MAD TREADLE CUT OFF SAW OPERATOR, ETELVINA L V76.10 Breast Cancer Screening 09/07/2012 MAD TREADLE CUT OFF SAW OPERATOR, ETELVINA L V76.12 Mammogram Screening 09/07/2012 MAD TREADLE CUT OFF SAW OPERATOR, ETELVINA L V76.2 Cervical Cancer Screening (pap Smear) 09/07/2012 MAD TREADLE CUT OFF SAW OPERATOR, ETELVINA L V03.82 Ppv23 (pneumovax) Dx 09/07/2012 MAD TREADLE CUT OFF SAW OPERATOR, ETELVINA L V76.10 Breast Cancer Screening 09/07/2012 [facility] TREADLE CUT OFF SAW OPERATOR, ETELVINA L V76.12 Mammogram Screening 09/07/2012 [facility] TREADLE CUT OFF SAW OPERATOR, ETELVINA L V76.2 Cervical Cancer Screening (pap Smear) 09/07/2012 MAD TREADLE CUT OFF SAW OPERATOR, ETELVINA L V03.82 Ppv23 (pneumovax) Dx 09/07/2012 [facility] TREADLE CUT OFF SAW OPERATOR, ETELVINA L V76.10 Breast Cancer Screening 09/07/2012 [facility] TREADLE CUT OFF SAW OPERATOR, ETELVINA L V76.12 Mammogram Screening 09/07/2012 [facility] TREADLE CUT OFF SAW OPERATOR, ETELVINA L V76.2 Cervical Cancer Screening (pap Smear) 09/07/2012 MAD TREADLE CUT OFF SAW OPERATOR, ETELVINA L V03.82 Ppv23 (pneumovax) Dx 09/07/2012 MAD TREADLE CUT OFF SAW OPERATOR, ETELVINA L V76.10 Breast Cancer Screening 09/07/2012 [facility] TREADLE CUT OFF SAW OPERATOR, ETELVINA L V76.12 Mammogram Screening 09/07/2012 [facility] TREADLE CUT OFF SAW OPERATOR, ETELVINA L V76.2 Cervical Cancer Screening (pap Smear) 09/07/2012 MAD TREADLE CUT OFF SAW OPERATOR, ETELVINA L V03.82 Ppv23 (pneumovax) Dx 09/07/2012 MAD TREADLE CUT OFF SAW OPERATOR, ETELVINA L V76.10 Breast Cancer Screening 09/07/2012 MAD TREADLE CUT OFF SAW OPERATOR, ETELVINA L V76.12 Mammogram Screening 09/07/2012 MAD TREADLE CUT OFF SAW OPERATOR, ETELVINA L V76.2 Cervical Cancer Screening [...] Cervical Cancer Screening (pap Smear) 09/07/2012 MADL TREADLE CUT OFF SAW OPERATORHAMMADA L V03.82 Ppv23 (pneumovax) Dx 09/07/2012 MADL TREADLE CUT OFF SAW OPERATOR, ETELVINA L V76.10 Breast Cancer Screening 09/07/2012 MADL TREADLE CUT OFF SAW OPERATOR, ETELVINA L V76.12 Mammogram Screening 09/07/2012 MADL TREADLE CUT OFF SAW OPERATORHAMMAD BowserA L V76.2 Cervical Cancer Screening (pap Smear) 09/07/2012 NOEMY PRAKASH LADONNA K V03.82 Ppv23 (pneumovax) Dx 09/07/2012 TERE SALGUERO DOA K V76.10 Breast Cancer Screening 09/07/2012 TERE SALGUERO DOA K V76.12 Mammogram Screening 09/07/2012 TERE SALGUERO DOA K V76.2 Cervical Cancer Screening (pap Smear) 09/07/2012 MADL TREADLE CUT OFF SAW OPERATOR, ETELVINA L V03.82 Ppv23 (pneumovax) Dx 09/07/2012 MADL TREADLE CUT OFF SAW OPERATOR, ETELVINA L V76.10 Breast Cancer Screening 09/07/2012 MADL TREADLE CUT OFF SAW OPERATOR, ETELVINA L V76.12 Mammogram Screening 09/07/2012 MADL TREADLE CUT OFF SAW OPERATOR, ETELVINA L V76.2 Cervical Cancer Screening (pap Smear) 09/08/2012 Ot 305.1 TOBACCO USE DISORDER 09/08/2012 Ot 466.0 ACUTE BRONCHITIS 09/08/2012 Ot 786.2 COUGH 09/19/2012 Ot 305.1 TOBACCO USE DISORDER 09/19/2012 Ot 491.9 CHRONIC BRONCHITIS NOS 09/19/2012 Ot 780.79 OTH MALAISE FATIGUE 10/22/2012 MORGAN TREADLE CUT OFF SAW OPERATOR, LAURIE S V58.69 high risk medication [...] medication for a long time 10/22/2012 MADL TREADLE CUT OFF SAW OPERATOR, ETELVINA L V58.69 taking high-risk medication for a long time 10/22/2012 MADL TREADLE CUT OFF SAW OPERATORHAMMADA L V58.69 taking high-risk medication for a long time 10/22/2012 LADONNA SALGUERO DO K V58.69 taking high-risk medication for a long time 10/22/2012 LADONNA SALGUERO DO K V58.69 taking high-risk medication for a long time 10/22/2012 MADL TREADLE CUT OFF SAW OPERATORETELVINA L V58.69 taking high-risk medication for a long time 10/22/2012 MADL TREADLE CUT OFF SAW OPERATOR ETELVINA L V58.69 taking high-risk medication for a long time 10/22/2012 MADL TREADLE CUT OFF SAW OPERATORHAMMADA L V58.69 taking high-risk medication for a long time 10/22/2012 MADL TREADLE CUT OFF SAW OPERATORHAMMADA L V58.69 taking high-risk medication for a long time 10/22/2012 MADL TREADLE CUT OFF SAW OPERATORHAMMAD BowserA L V58.69 taking high-risk medication for a long time 10/22/2012 MADL TREADLE CUT OFF SAW OPERATORHAMMADA L V58.69 taking high-risk medication for a long time 10/22/2012 MADL TREADLE CUT OFF SAW OPERATOR ETELVINA L V58.69 taking high-risk medication for a long time 10/22/2012 LADONNA SALGUERO DO K V58.69 taking high-risk medication for a long time 10/22/2012 LADONNA SALGUERO DO K V58.69 taking high-risk medication for a long time 10/22/2012 MADL TREADLE CUT OFF SAW OPERATORETELVINA Bowser L V58.69 taking high-risk medication for a long time 10/22/2012 LADONNA SALGUERO DO K V58.69 taking high-risk medication for a long time 10/22/2012 MADL TREADLE CUT OFF SAW OPERATORHAMMAD BowserA L V58.69 taking high-risk medication for a long time 10/26/2012 Ot 250.00 DIAB MELVA WO COMPL, TYPE II OR UNSPEC TY 10/26/2012 Ot 278.00 OBESITY, NOS 10/26/2012 Ot 300.00 ANXIETY STATE NOS 10/26/2012 Ot 305.1 TOBACCO USE DISORDER 10/26/2012 Ot 311 DEPRESSIVE DISORDER NEC 10/26/2012 Ot 401.9 HYPERTENSION NOS 10/26/2012 Ot 414.01 CORONARY ATHEROSCLEROSIS OF [place] CORON 10/26/2012 Ot 491.21 OBSTR CHRONIC BRONCHITIS, [...] K 465.9 UPPER RESPIRATORY INFECTION 11/01/2012 MADL TREADLE CUT OFF SAW OPERATOR, ETELVINA L 465.9 UPPER RESPIRATORY INFECTION 11/01/2012 MADL TREADLE CUT OFF SAW OPERATOR, ETELVINA L 465.9 UPPER RESPIRATORY INFECTION 11/01/2012 MADL TREADLE CUT OFF SAW OPERATOR, ETELVINA L 465.9 UPPER RESPIRATORY INFECTION 11/01/2012 SALGUERO DO, LADONNA K 465.9 UPPER RESPIRATORY INFECTION 11/01/2012 SALGUERO DO, LADONNA K 465.9 UPPER RESPIRATORY INFECTION 11/01/2012 MADL TREADLE CUT OFF SAW OPERATOR, ETELVINA L 465.9 UPPER RESPIRATORY INFECTION 11/01/2012 MADL TREADLE CUT OFF SAW OPERATOR, ETELVINA L 465.9 UPPER RESPIRATORY INFECTION 11/01/2012 MADL TREADLE CUT OFF SAW OPERATOR, ETELVINA L 465.9 UPPER RESPIRATORY INFECTION 11/01/2012 MADL TREADLE CUT OFF SAW OPERATOR, ETELVINA L 465.9 UPPER RESPIRATORY INFECTION 11/01/2012 MADL TREADLE CUT OFF SAW OPERATOR, ETELVINA L 465.9 UPPER RESPIRATORY INFECTION 11/01/2012 MADL TREADLE CUT OFF SAW OPERATOR, ETELVINA L 465.9 UPPER RESPIRATORY INFECTION 11/01/2012 MADL TREADLE CUT OFF SAW OPERATOR, ETELVINA L 465.9 UPPER RESPIRATORY INFECTION 11/01/2012 SALGUERO DO, LADONNA K 465.9 UPPER RESPIRATORY INFECTION 11/01/2012 SALGUERO DO, LADONNA K 465.9 UPPER RESPIRATORY INFECTION 11/01/2012 MADL TREADLE CUT OFF SAW OPERATOR, ETELVINA L 465.9 UPPER RESPIRATORY INFECTION 11/01/2012 SALGUERO DO, LADONNA K 465.9 UPPER RESPIRATORY INFECTION 11/01/2012 MADL TREADLE CUT OFF SAW OPERATOR, ETELVINA L 465.9 UPPER RESPIRATORY INFECTION 11/13/2012 Ot 250.00 DIAB MELVA WO COMPL, TYPE II OR UNSPEC TY 11/13/2012 Ot 272.4 HYPERLIPIDEMIA NEC/NOS 11/13/2012 Ot 278.00 OBESITY, NOS 11/13/2012 Ot 300.00 ANXIETY STATE NOS 11/13/2012 Ot 305.1 TOBACCO USE DISORDER 11/13/2012 Ot 311 DEPRESSIVE DISORDER NEC 11/13/2012 Ot 401.9 HYPERTENSION NOS 11/13/2012 Ot 414.01 CORONARY ATHEROSCLEROSIS OF [place] CORON 11/13/2012 Ot 458.9 HYPOTENSION NOS 11/13/2012 [...] DO, LADONNA K 244.9 HYPOTHYROIDISM 12/02/2012 MADL TREADLE CUT OFF SAW OPERATOR, ETELVINA L 244.9 HYPOTHYROIDISM 12/02/2012 MADL TREADLE CUT OFF SAW OPERATOR, ETELVINA L 244.9 HYPOTHYROIDISM 12/02/2012 MADL TREADLE CUT OFF SAW OPERATOR, ETELVINA L 244.9 HYPOTHYROIDISM 12/02/2012 SALGUERO DO, LADONNA K 244.9 HYPOTHYROIDISM 12/02/2012 SALGUERO DO, LADONNA K 244.9 HYPOTHYROIDISM 12/02/2012 MADL TREADLE CUT OFF SAW OPERATOR, ETELVINA L 244.9 HYPOTHYROIDISM 12/02/2012 MADL TREADLE CUT OFF SAW OPERATOR, ETELVINA L 244.9 HYPOTHYROIDISM 12/02/2012 MADL TREADLE CUT OFF SAW OPERATOR, ETELVINA L 244.9 HYPOTHYROIDISM 12/02/2012 MADL TREADLE CUT OFF SAW OPERATOR, ETELVINA L 244.9 HYPOTHYROIDISM 12/02/2012 MADL TREADLE CUT OFF SAW OPERATOR, ETELVINA L 244.9 HYPOTHYROIDISM 12/02/2012 MADL TREADLE CUT OFF SAW OPERATOR, ETELVINA L 244.9 HYPOTHYROIDISM 12/02/2012 MADL TREADLE CUT OFF SAW OPERATOR, ETELVINA L 244.9 HYPOTHYROIDISM 12/02/2012 SALGUERO DO, LADONNA K 244.9 HYPOTHYROIDISM 12/02/2012 SALGUERO DO, LADONNA K 244.9 HYPOTHYROIDISM 12/02/2012 MADL TREADLE CUT OFF SAW OPERATOR, ETELVINA L 244.9 HYPOTHYROIDISM 12/02/2012 SALGUERO DO, LADONNA K 244.9 HYPOTHYROIDISM 12/02/2012 MADL TREADLE CUT OFF SAW OPERATOR, ETELVINA L 244.9 HYPOTHYROIDISM 12/26/2012 Ot [...] DO LADONNA K 780.52 insomnia 02/08/2013 MADL TREADLE CUT OFF SAW OPERATOR, ETELVINA L 780.52 insomnia 02/08/2013 MADL TREADLE CUT OFF SAW OPERATOR, ETELVINA L 780.52 insomnia 02/08/2013 MADL TREADLE CUT OFF SAW OPERATOR, ETELVINA L 780.52 insomnia 02/08/2013 SALGUERO DO LADONNA K 780.52 insomnia 02/08/2013 SALGUERO DO, LADONNA K 780.52 insomnia 02/08/2013 MADL TREADLE CUT OFF SAW OPERATOR, ETELVINA L 780.52 insomnia 02/08/2013 MADL TREADLE CUT OFF SAW OPERATOR, ETELVINA L 780.52 insomnia 02/08/2013 MADL TREADLE CUT OFF SAW OPERATOR, ETELVINA L 780.52 insomnia 02/08/2013 MADL TREADLE CUT OFF SAW OPERATOR, ETELVINA L 780.52 insomnia 02/08/2013 MADL TREADLE CUT OFF SAW OPERATOR, ETELVINA L 780.52 insomnia 02/08/2013 MADL TREADLE CUT OFF SAW OPERATOR, ETELVINA L 780.52 insomnia 02/08/2013 MADL TREADLE CUT OFF SAW OPERATOR, ETELVINA L 780.52 insomnia 02/08/2013 SALGUERO DO LADONNA K 780.52 insomnia 02/08/2013 SALGUERO DO LADONNA K 780.52 insomnia 02/08/2013 MADL TREADLE CUT OFF SAW OPERATOR, ETELVINA L 780.52 insomnia 02/08/2013 SALGUERO DO, LADONNA K 780.52 insomnia 02/08/2013 MADL TREADLE CUT OFF SAW OPERATOR, ETELVINA L 780.52 insomnia 04/17/2013 REHAN [...] LADONNA K 719.07 EDEMA FOOT 06/03/2013 MADL TREADLE CUT OFF SAW OPERATOR, ETELVINA L 110.1 ONYCHOMYCOSIS 06/03/2013 MADL TREADLE CUT OFF SAW OPERATOR, ETELVINA L 719.07 EDEMA FOOT 06/03/2013 MADL TREADLE CUT OFF SAW OPERATOR, ETELVINA L 110.1 ONYCHOMYCOSIS 06/03/2013 MADL TREADLE CUT OFF SAW OPERATOR, ETELVINA L 719.07 EDEMA FOOT 06/03/2013 MADL TREADLE CUT OFF SAW OPERATOR, ETELVINA L 110.1 ONYCHOMYCOSIS 06/03/2013 MADL TREADLE CUT OFF SAW OPERATOR, ETELVINA L 719.07 EDEMA FOOT 06/03/2013 SALGUERO DO, LADONNA K 110.1 ONYCHOMYCOSIS 06/03/2013 SALGUERO DO, LADONNA K 719.07 EDEMA FOOT 06/03/2013 SALGUERO DO, LADONNA K 110.1 ONYCHOMYCOSIS 06/03/2013 SALGUREO DO, LADONNA K 719.07 EDEMA FOOT 06/03/2013 MADL TREADLE CUT OFF SAW OPERATOR, ETELVINA L 110.1 ONYCHOMYCOSIS 06/03/2013 MADL TREADLE CUT OFF SAW OPERATOR, ETELVINA L 719.07 EDEMA FOOT 06/03/2013 MADL TREADLE CUT OFF SAW OPERATOR, ETELVINA L 110.1 ONYCHOMYCOSIS 06/03/2013 MADL TREADLE CUT OFF SAW OPERATOR, ETELVINA L 719.07 EDEMA FOOT 06/03/2013 MADL TREADLE CUT OFF SAW OPERATOR, ETELVINA L 110.1 ONYCHOMYCOSIS 06/03/2013 MADL TREADLE CUT OFF SAW OPERATOR, ETELVINA L 719.07 EDEMA FOOT 06/03/2013 MADL TREADLE CUT OFF SAW OPERATOR, ETELVINA L 110.1 ONYCHOMYCOSIS 06/03/2013 MADL TREADLE CUT OFF SAW OPERATOR, ETELVINA L 719.07 EDEMA FOOT 06/03/2013 MADL TREADLE CUT OFF SAW OPERATOR, ETELVINA L 110.1 ONYCHOMYCOSIS 06/03/2013 MADL TREADLE CUT OFF SAW OPERATOR, ETELVINA L 719.07 EDEMA FOOT 06/03/2013 MADL TREADLE CUT OFF SAW OPERATOR, ETELVINA L 110.1 ONYCHOMYCOSIS 06/03/2013 MADL TREADLE CUT OFF SAW OPERATOR, ETELVINA L 719.07 EDEMA FOOT 06/03/2013 MADL TREADLE CUT OFF SAW OPERATOR, ETELVINA L 110.1 ONYCHOMYCOSIS 06/03/2013 MADL TREADLE CUT OFF SAW OPERATOR, ETELVINA L 719.07 EDEMA FOOT 06/03/2013 SALGUERO DO, LADONNA K 110.1 ONYCHOMYCOSIS 06/03/2013 SALGUERO DO, LADONNA K 719.07 EDEMA FOOT 06/03/2013 SALGUERO DO, LADONNA K 110.1 ONYCHOMYCOSIS 06/03/2013 SALGUERO DO, LADONNA K 719.07 EDEMA FOOT 06/03/2013 MADL TREADLE CUT OFF SAW OPERATOR, ETELVINA L 110.1 ONYCHOMYCOSIS 06/03/2013 MADL TREADLE CUT OFF SAW OPERATOR, ETELVINA L 719.07 EDEMA FOOT 06/03/2013 SALGUERO DO, LADONNA K 110.1 ONYCHOMYCOSIS 06/03/2013 SALGUERO DO, LADONNA K 719.07 EDEMA FOOT 06/03/2013 MADL TREADLE CUT OFF SAW OPERATOR, ETELVINA L 110.1 ONYCHOMYCOSIS 06/03/2013 MADL TREADLE CUT OFF SAW OPERATOR, ETELVINA L 719.07 EDEMA FOOT 08/03/2013 [...] LADONNA K 595.0 ACUTE CYSTITIS 08/25/2013 MADL TREADLE CUT OFF SAW OPERATOR, ETELVINA L 311 depression 08/25/2013 MADL TREADLE CUT OFF SAW OPERATOR, ETELVINA L 595.0 ACUTE CYSTITIS 08/25/2013 MADL TREADLE CUT OFF SAW OPERATOR, ETELVINA L 311 depression 08/25/2013 MADL TREADLE CUT OFF SAW OPERATOR, ETELVINA L 595.0 ACUTE CYSTITIS 08/25/2013 MADL TREADLE CUT OFF SAW OPERATOR, ETELVINA L 311 depression 08/25/2013 MADL TREADLE CUT OFF SAW OPERATOR, ETELVINA L 595.0 ACUTE CYSTITIS 08/25/2013 SALGUERO DO, LADONNA K 311 depression 08/25/2013 SALGUERO DO, LADONNA K 595.0 ACUTE CYSTITIS 08/25/2013 SALGUERO DO, LADONNA K 311 depression 08/25/2013 SALGUERO DO, LADONNA K 595.0 ACUTE CYSTITIS 08/25/2013 MADL TREADLE CUT OFF SAW OPERATOR, ETELVINA L 311 depression 08/25/2013 MADL TREADLE CUT OFF SAW OPERATOR, ETELVINA L 595.0 ACUTE CYSTITIS 08/25/2013 MADL TREADLE CUT OFF SAW OPERATOR, ETELVINA L 311 depression 08/25/2013 MADL TREADLE CUT OFF SAW OPERATOR, ETELVINA L 595.0 ACUTE CYSTITIS 08/25/2013 MADL TREADLE CUT OFF SAW OPERATOR, ETELVINA L 311 depression 08/25/2013 MADL TREADLE CUT OFF SAW OPERATOR, ETELVINA L 595.0 ACUTE CYSTITIS 08/25/2013 MADL TREADLE CUT OFF SAW OPERATOR, ETELVINA L 311 depression 08/25/2013 MADL TREADLE CUT OFF SAW OPERATOR, ETELVINA L 595.0 ACUTE CYSTITIS 08/25/2013 MADL TREADLE CUT OFF SAW OPERATOR, ETELVINA L 311 depression 08/25/2013 MADL TREADLE CUT OFF SAW OPERATOR, ETELVINA L 595.0 ACUTE CYSTITIS 08/25/2013 MADL TREADLE CUT OFF SAW OPERATOR, ETELVINA L 311 depression 08/25/2013 MADL TREADLE CUT OFF SAW OPERATOR, ETELVINA L 595.0 ACUTE CYSTITIS 08/25/2013 MADL TREADLE CUT OFF SAW OPERATOR, ETELVINA L 311 depression 08/25/2013 MADL TREADLE CUT OFF SAW OPERATOR, ETELVINA L 595.0 ACUTE CYSTITIS 08/25/2013 SALGUERO DO, LADONNA K 311 depression 08/25/2013 SALGUERO DO, LADONNA K 595.0 ACUTE CYSTITIS 08/25/2013 SALGUERO DO, LADONNA K 311 depression 08/25/2013 SALGUERO DO, LADONNA K 595.0 ACUTE CYSTITIS 08/25/2013 MADL TREADLE CUT OFF SAW OPERATOR, ETELVINA L 311 depression 08/25/2013 MADL TREADLE CUT OFF SAW OPERATOR, ETELVINA L 595.0 ACUTE CYSTITIS 08/25/2013 SALGUERO DO, LADONNA K 311 depression 08/25/2013 SALGUERO DO, LADONNA K 595.0 ACUTE CYSTITIS 08/25/2013 MADL TREADLE CUT OFF SAW OPERATOR, ETELVINA L 311 depression 08/25/2013 MADL TREADLE CUT OFF SAW OPERATOR, ETELVINA L 595.0 ACUTE CYSTITIS 09/02/2013 [...] LADONNA K 709.8 FISSURES SKIN 09/02/2013 MADL TREADLE CUT OFF SAW OPERATOR, ETELVINA L 709.8 FISSURES SKIN 09/02/2013 MADL TREADLE CUT OFF SAW OPERATOR, ETELVINA L 709.8 FISSURES SKIN 09/02/2013 MADL TREADLE CUT OFF SAW OPERATOR, ETELVINA L 709.8 FISSURES SKIN 09/02/2013 SALGUERO DO, LADONNA K 709.8 FISSURES SKIN 09/02/2013 SALGUERO DO, LADONNA K 709.8 FISSURES SKIN 09/02/2013 MADL TREADLE CUT OFF SAW OPERATOR, ETELVINA L 709.8 FISSURES SKIN 09/02/2013 MADL TREADLE CUT OFF SAW OPERATOR, ETELVINA L 709.8 FISSURES SKIN 09/02/2013 MADL TREADLE CUT OFF SAW OPERATOR, ETELVINA L 709.8 FISSURES SKIN 09/02/2013 MADL TREADLE CUT OFF SAW OPERATOR, ETELVINA L 709.8 FISSURES SKIN 09/02/2013 MADL TREADLE CUT OFF SAW OPERATOR, ETELVINA L 709.8 FISSURES SKIN 09/02/2013 MADL TREADLE CUT OFF SAW OPERATOR, ETELVINA L 709.8 FISSURES SKIN 09/02/2013 MADL TREADLE CUT OFF SAW OPERATOR, ETELVINA L 709.8 FISSURES SKIN 09/02/2013 SALGUERO DO, LADONNA K 709.8 FISSURES SKIN 09/02/2013 SALGUERO DO, LADONNA K 709.8 FISSURES SKIN 09/02/2013 MADL TREADLE CUT OFF SAW OPERATOR, ETELVINA L 709.8 FISSURES SKIN 09/02/2013 SALGUERO DO, LADONNA K 709.8 FISSURES SKIN 09/02/2013 MADL TREADLE CUT OFF SAW OPERATOR, ETELVINA L 709.8 FISSURES SKIN 09/22/2013 [...] 788.1 pain during urination (dysuria) 09/22/2013 MADL TREADLE CUT OFF SAW OPERATOR, ETELVINA L 788.1 pain during urination (dysuria) 09/22/2013 MADL TREADLE CUT OFF SAW OPERATOR, ETELVINA L 788.1 pain during urination (dysuria) 09/22/2013 MADL TREADLE CUT OFF SAW OPERATOR, ETELVINA L 788.1 pain during urination (dysuria) 09/22/2013 SALGUERO DO, LADONNA K 788.1 PAIN DURING URINATION (DYSURIA) 09/22/2013 SALGUERO DO, LADONNA K 788.1 PAIN DURING URINATION (DYSURIA) 09/22/2013 MADL TREADLE CUT OFF SAW OPERATOR, ETELVINA L 788.1 PAIN DURING URINATION (DYSURIA) 09/22/2013 MADL TREADLE CUT OFF SAW OPERATOR, ETELVINA L 788.1 PAIN DURING URINATION (DYSURIA) 09/22/2013 MADL TREADLE CUT OFF SAW OPERATOR, ETELVINA L 788.1 PAIN DURING URINATION (DYSURIA) 09/22/2013 MADL TREADLE CUT OFF SAW OPERATOR, ETELVINA L 788.1 PAIN DURING URINATION (DYSURIA) 09/22/2013 MADL TREADLE CUT OFF SAW OPERATOR, ETELVINA L 788.1 PAIN DURING URINATION (DYSURIA) 09/22/2013 MADL TREADLE CUT OFF SAW OPERATOR, ETELVINA L 788.1 PAIN DURING URINATION (DYSURIA) 09/22/2013 MADL TREADLE CUT OFF SAW OPERATOR, ETELVINA L 788.1 PAIN DURING URINATION (DYSURIA) 09/22/2013 SALGUERO DO LADONNA K 788.1 PAIN DURING URINATION (DYSURIA) 09/22/2013 SALGUERO DO, LADONNA K 788.1 PAIN DURING URINATION (DYSURIA) 09/22/2013 MADL TREADLE CUT OFF SAW OPERATOR, ETELVINA L 788.1 PAIN DURING URINATION (DYSURIA) 09/22/2013 SALGUERO DO, LADONNA K 788.1 PAIN DURING URINATION (DYSURIA) 09/22/2013 MADMaxine TREADLE CUT OFF SAW OPERATOR, ETELVINA L 788.1 PAIN DURING URINATION (DYSURIA) 10/22/2013 EDUARDO VILLEGAS MD Ot 596.51 HYPERTONICITY OF BLADDER 10/22/2013 EDUARDO VILLEGAS MD Ot 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 10/22/2013 EDUARDO VILLEGAS MD Ot 788.30 UNSPECIFIED URINARY INCONTINENCE 10/22/2013 EDUARDO VILLEGAS MD Ot V58.69 [facility] MED,LT,CURRENT USE 10/25/2013 HARDEEP DORANTES Ot 892.0 OPEN WOUND OF FOOT 10/25/2013 HARDEEP DORANTES Ot 959.7 LOWER LEG INJURY NOS 10/25/2013 HARDEEP DORANTES Ot E000.8 OTHER EXTERNAL CAUSE STATUS 10/25/2013 HARDEEP DORANTES Ot E849.0 ACCIDENT IN HOME 10/25/2013 HARDEEP DORANTES Ot E916 STRUCK BY FALLING OBJECT 10/25/2013 HARDEEP DORANTES Ot V06.1 RIEJJOVIKS-[id number], COMBINED [ 11/04/2013 MARLA EVERETT MD, Ot [...] LADONNA K Ot 414.01 CORONARY ATHEROSCLEROSIS OF [place] CORON 02/11/2014 NOEMY PRAKASH LADONNA K Ot [...] MASS INDEX 39.0-39.9, ADULT 02/13/2014 THOMPSON QURESHI TREADLE CUT OFF SAW OPERATOR Ot 724.5 BACKACHE NOS 02/27/2014 TERE SALGUERO DOA K 381.01 ACUTE SEROUS OTITIS MEDIA 02/27/2014 NOEMY PRAKASH LADONNA K 381.01 ACUTE SEROUS OTITIS MEDIA 02/27/2014 NOEMY PRAKASH LADONNA K 381.01 ACUTE SEROUS OTITIS MEDIA 02/27/2014 SALGUERO DO LADONNA K 381.01 ACUTE SEROUS OTITIS MEDIA 02/27/2014 ETELVINA LEONARD APRN 381.01 ACUTE SEROUS OTITIS MEDIA 02/27/2014 MADL TREADLE CUT OFF SAW OPERATOR, ETELVINA L 381.01 ACUTE SEROUS OTITIS MEDIA 02/27/2014 MADL TREADLE CUT OFF SAW OPERATOR, ETELVINA L 381.01 ACUTE SEROUS OTITIS MEDIA 02/27/2014 SALGUERO DO, LADONNA K 381.01 ACUTE SEROUS OTITIS MEDIA 02/27/2014 SALGUERO DO, LADONNA K 381.01 ACUTE SEROUS OTITIS MEDIA 02/27/2014 MADL TREADLE CUT OFF SAW OPERATOR, ETELVINA L 381.01 ACUTE SEROUS OTITIS MEDIA 02/27/2014 MADL TREADLE CUT OFF SAW OPERATOR, ETELVINA L 381.01 ACUTE SEROUS OTITIS MEDIA 02/27/2014 MADL TREADLE CUT OFF SAW OPERATOR, ETELVINA L 381.01 ACUTE SEROUS OTITIS MEDIA 02/27/2014 MADL TREADLE CUT OFF SAW OPERATOR, ETELVINA L 381.01 ACUTE SEROUS OTITIS MEDIA 02/27/2014 MADL TREADLE CUT OFF SAW OPERATOR, ETELVINA L 381.01 ACUTE SEROUS OTITIS MEDIA 02/27/2014 MADL TREADLE CUT OFF SAW OPERATOR, ETELVINA L 381.01 ACUTE SEROUS OTITIS MEDIA 02/27/2014 MADL TREADLE CUT OFF SAW OPERATOR, ETELVINA L 381.01 ACUTE SEROUS OTITIS MEDIA 02/27/2014 SALGUERO DO, LADONNA K 381.01 ACUTE SEROUS OTITIS MEDIA 02/27/2014 SALGUERO DO, LADONNA K 381.01 ACUTE SEROUS OTITIS MEDIA 02/27/2014 MADL TREADLE CUT OFF SAW OPERATOR, ETELVINA L 381.01 ACUTE SEROUS OTITIS MEDIA 02/27/2014 SALGUERO DO, LADONNA K 381.01 ACUTE SEROUS OTITIS MEDIA 02/27/2014 MADL TREADLE CUT OFF SAW OPERATOR, ETELVINA L 381.01 ACUTE SEROUS OTITIS MEDIA 05/22/2014 MADL TREADLE CUT OFF SAW OPERATOR, ETELVINA L V16.0 FAMILY HISTORY OF MALIGNANT NEOPLASM OF GASTROINTESTINAL TRACT 05/22/2014 MADL TREADLE CUT OFF SAW OPERATOR, ETELVINA L V16.0 FAMILY HISTORY OF MALIGNANT NEOPLASM OF GASTROINTESTINAL TRACT 05/22/2014 SALGUERO DO, LADONNA K V16.0 FAMILY HISTORY OF MALIGNANT NEOPLASM OF GASTROINTESTINAL TRACT 05/22/2014 SALGUERO DO, LADONNA K V16.0 FAMILY HISTORY OF MALIGNANT NEOPLASM OF GASTROINTESTINAL TRACT 05/22/2014 MADL TREADLE CUT OFF SAW OPERATOR, ETELVINA L V16.0 FAMILY HISTORY OF MALIGNANT NEOPLASM OF GASTROINTESTINAL TRACT 05/22/2014 MADL TREADLE CUT OFF SAW OPERATOR, ETELVINA L V16.0 FAMILY HISTORY OF MALIGNANT NEOPLASM OF GASTROINTESTINAL TRACT 05/22/2014 MADL TREADLE CUT OFF SAW OPERATOR, ETELVINA L V16.0 FAMILY HISTORY OF MALIGNANT NEOPLASM OF GASTROINTESTINAL TRACT 05/22/2014 MADL TREADLE CUT OFF SAW OPERATOR, ETELVINA L V16.0 FAMILY HISTORY OF MALIGNANT NEOPLASM OF GASTROINTESTINAL TRACT 05/22/2014 MADL TREADLE CUT OFF SAW OPERATOR, ETELVINA L V16.0 FAMILY HISTORY OF MALIGNANT NEOPLASM OF GASTROINTESTINAL TRACT 05/22/2014 MADL TREADLE CUT OFF SAW OPERATOR, ETELVINA L V16.0 FAMILY HISTORY OF MALIGNANT NEOPLASM OF GASTROINTESTINAL TRACT 05/22/2014 MADL TREADLE CUT OFF SAW OPERATOR, ETELVINA L V16.0 FAMILY HISTORY OF MALIGNANT NEOPLASM OF GASTROINTESTINAL TRACT 05/22/2014 SALGUERO DO LADONNA K V16.0 FAMILY HISTORY OF MALIGNANT NEOPLASM OF GASTROINTESTINAL TRACT 05/22/2014 SALGUERO DO LADONNA K V16.0 FAMILY HISTORY OF MALIGNANT NEOPLASM OF GASTROINTESTINAL TRACT 05/22/2014 MADL TREADLE CUT OFF SAW OPERATOR, ETELVINA L V16.0 FAMILY HISTORY OF MALIGNANT NEOPLASM OF GASTROINTESTINAL TRACT 05/22/2014 SALGUERO DO LADONNA K V16.0 FAMILY HISTORY OF MALIGNANT NEOPLASM OF GASTROINTESTINAL TRACT 05/22/2014 AISHA TREADLE CUT OFF SAW OPERATOR, ETELVINA L V16.0 FAMILY HISTORY OF [...] FACP CCDS Ot 414.01 CORONARY ATHEROSCLEROSIS OF [place] CORON 05/23/2014 BRADLY KIRBY MD, FACC FACP [...] SALDANA MD Ot 414.01 CORONARY ATHEROSCLEROSIS OF [place] CORON 06/05/2014 SHANA OLVERA, JEFERSON Bruner Ot [...] MD Ot 553.3 DIAPHRAGMATIC HERNIA 08/28/2014 MADL TREADLE CUT OFF SAW OPERATOR, ETELVINA L 381.01 ACUTE SEROUS OTITIS MEDIA 08/28/2014 MADL TREADLE CUT OFF SAW OPERATOR, ETELVINA L 799.02 HYPOXIA 08/28/2014 MADL TREADLE CUT OFF SAW OPERATOR, ETELVINA L V04.81 FLU SHOT 08/28/2014 MADL TREADLE CUT OFF SAW OPERATOR, ETELVINA L 381.01 ACUTE SEROUS OTITIS MEDIA 08/28/2014 MADL TREADLE CUT OFF SAW OPERATOR, ETELVINA L 799.02 HYPOXIA 08/28/2014 MADL TREADLE CUT OFF SAW OPERATOR, ETELVINA L V04.81 FLU SHOT 08/28/2014 MADL TREADLE CUT OFF SAW OPERATOR, ETELVINA L 381.01 ACUTE SEROUS OTITIS MEDIA 08/28/2014 MADL TREADLE CUT OFF SAW OPERATOR, ETELVINA L 799.02 HYPOXIA 08/28/2014 MADL TREADLE CUT OFF SAW OPERATOR, ETELVINA L V04.81 FLU SHOT 08/28/2014 MADL TREADLE CUT OFF SAW OPERATOR, ETELVINA L 381.01 ACUTE SEROUS OTITIS MEDIA 08/28/2014 MADL TREADLE CUT OFF SAW OPERATOR, ETELVINA L 799.02 HYPOXIA 08/28/2014 MADL TREADLE CUT OFF SAW OPERATOR, ETELVINA L V04.81 FLU SHOT 08/28/2014 MADL TREADLE CUT OFF SAW OPERATOR, ETELVINA L 381.01 ACUTE SEROUS OTITIS MEDIA 08/28/2014 MADL TREADLE CUT OFF SAW OPERATOR, ETELVINA L 799.02 HYPOXIA 08/28/2014 MADL TREADLE CUT OFF SAW OPERATOR, ETELVINA L V04.81 FLU SHOT 08/28/2014 MADL TREADLE CUT OFF SAW OPERATOR, ETELVINA L 381.01 ACUTE SEROUS OTITIS MEDIA 08/28/2014 MADL TREADLE CUT OFF SAW OPERATOR, ETELVINA L 799.02 HYPOXIA 08/28/2014 MADL TREADLE CUT OFF SAW OPERATOR, ETELVINA L V04.81 FLU SHOT 08/28/2014 MADL TREADLE CUT OFF SAW OPERATOR, ETELVINA L 381.01 ACUTE SEROUS OTITIS MEDIA 08/28/2014 MADL TREADLE CUT OFF SAW OPERATOR, ETELVINA L 799.02 HYPOXIA 08/28/2014 MADL TREADLE CUT OFF SAW OPERATOR, ETELVINA L V04.81 FLU SHOT 08/28/2014 SALGUERO DO, LADONNA K 381.01 ACUTE SEROUS OTITIS MEDIA 08/28/2014 SALGUERO DO, LADONNA K 799.02 HYPOXIA 08/28/2014 SALGUERO DO, LADONNA K V04.81 FLU SHOT 08/28/2014 SALGUERO DO, LADONNA K 381.01 ACUTE SEROUS OTITIS MEDIA 08/28/2014 SALGUERO DO, LADONNA K 799.02 HYPOXIA 08/28/2014 SALGUERO DO, LADONNA K V04.81 FLU SHOT 08/28/2014 MADL TREADLE CUT OFF SAW OPERATOR, ETELVINA L 381.01 ACUTE SEROUS OTITIS MEDIA 08/28/2014 MADL TREADLE CUT OFF SAW OPERATOR, ETELVINA L 799.02 HYPOXIA 08/28/2014 MADL TREADLE CUT OFF SAW OPERATOR, ETELVINA L V04.81 FLU SHOT 08/28/2014 SALGUERO DO, LADONNA K 381.01 ACUTE SEROUS OTITIS MEDIA 08/28/2014 SALGUERO DO, LADONNA K 799.02 HYPOXIA 08/28/2014 SALGUERO DO, LADONNA K V04.81 FLU SHOT 08/28/2014 MADL TREADLE CUT OFF SAW OPERATOR, ETELVINA L 381.01 ACUTE SEROUS OTITIS MEDIA 08/28/2014 MADL TREADLE CUT OFF SAW OPERATOR, ETELVINA L 799.02 HYPOXIA 08/28/2014 MADL ETELVINA HARRIS L V04.81 FLU SHOT 08/31/2014 THOMPSON QURESHI TREADLE CUT OFF SAW OPERATOR Ot 250.00 DIAB MELVA WO COMPL, TYPE II OR UNSPEC TY 08/31/2014 THOMPSON QURESHI TREADLE CUT OFF SAW OPERATOR Ot 305.1 TOBACCO USE DISORDER 08/31/2014 THOMPSON QURESHI TREADLE CUT OFF SAW OPERATOR Ot 382.9 OTITIS MEDIA NOS 08/31/2014 THOMPSON QURESHI APRN Ot 784.2 SWELLING IN HEAD NECK 08/31/2014 THOMPSON QURESHI TREADLE CUT OFF SAW OPERATOR Ot 910.4 INSECT BITE HEAD 08/31/2014 THOMPSON QURESHI APRN Ot E849.0 ACCIDENT IN HOME 08/31/2014 THOMPSON QURESHI APRN Ot E906.4 NONVENOM ARTHROPOD BITE 08/31/2014 THOMPSON QURESHI APRN Ot V58.67 LONG-TERM (CURRENT) USE OF INSULIN 09/01/2014 THOMPSON QURESHI APRN Ot 373.00 BLEPHARITIS NOS 09/01/2014 THOMPSON QURESHI TREADLE CUT OFF SAW OPERATOR Ot 379.92 SWELLING OR MASS OF [...] L V03.82 PPV23 (PNEUMOVAX) DX 10/23/2014 MADL TREADLE CUT OFF SAW OPERATOR, ETELVINA L 112.3 CANDIDIASIS OF SKIN [...] JOINT INVOLVING ANKLE AND FOOT 12/11/2014 HUGOL TREADLE CUT OFF SAW OPERATORSARA BowserETELVINA L 719.46 PAIN IN JOINT INVOLVING LOWER LEG 12/11/2014 MADL TREADLE CUT OFF SAW OPERATORANDREZ BowserNYA L 719.47 PAIN IN JOINT INVOLVING ANKLE AND FOOT 12/11/2014 SALGUERO DO LADONNA K 719.46 PAIN IN JOINT INVOLVING LOWER LEG 12/11/2014 NOEMY PRAKASH LADONNA K 719.47 PAIN IN JOINT INVOLVING ANKLE AND FOOT 12/11/2014 MADL SARA HARRISWNYA L 719.46 PAIN IN JOINT INVOLVING LOWER LEG 12/11/2014 MADL TREADLE CUT OFF SAW OPERATORANDREZ BowserNYA L 719.47 PAIN IN JOINT [...] LONG-TERM (CURRENT) USE OF INSULIN 12/30/2014 INES REYONSO MD Ot V58.69 OTH MED,LT,CURRENT USE 02/09/2015 AISHA HARRIS, ETELVINA L 735.4 HAMMER TOE (ACQUIRED) 02/09/2015 AISHA HARRIS, ETELVINA L 757.39 POROKEROTOSIS 02/09/2015 MADL TREADLE CUT OFF SAW OPERATOR, ETELVINA L 788.1 DYSURIA 02/09/2015 MADL TREADLE CUT OFF SAW OPERATOR, ETELVINA L 789.02 ABDOMINAL PAIN LEFT UPPER QUADRANT 02/09/2015 NOEMY PRAKASH LADONNA K 735.4 HAMMER TOE (ACQUIRED) 02/09/2015 NOEMY DO LADONNA K 757.39 POROKEROTOSIS 02/09/2015 SALGUERO DO LADONNA K 788.1 DYSURIA 02/09/2015 NOEMY PRAKASH LADONNA K 789.02 ABDOMINAL PAIN LEFT UPPER QUADRANT 02/09/2015 MADL TREADLE CUT OFF SAW OPERATOR, ETELVINA L 735.4 HAMMER TOE (ACQUIRED) 02/09/2015 AISHA HARRIS, ETELVINA L 757.39 POROKEROTOSIS 02/09/2015 HUGOL KIMBERLY, ETELVINA L 788.1 DYSURIA 02/09/2015 AISHA HARRIS, ETELVINA L 789.02 ABDOMINAL PAIN LEFT UPPER QUADRANT 02/19/2015 MADL KIMBERLY, ETELVINA L 780.2 SYNCOPE AND COLLAPSE 02/19/2015 SALGUERO DO, LADONNA K 780.2 SYNCOPE AND COLLAPSE 02/19/2015 MADL TREADLE CUT OFF SAW OPERATOR, ETELVINA L 780.2 SYNCOPE AND COLLAPSE 02/20/2015 QUE LEON MD Ot 250.00 DIAB MELVA WO COMPL, TYPE II OR UNSPEC TY 02/20/2015 QUE LEON MD Ot 305.1 TOBACCO USE DISORDER 02/20/2015 QUE LEON MD Ot 401.9 HYPERTENSION NOS 02/20/2015 QUE LEON MD Ot 414.01 CORONARY ATHEROSCLEROSIS OF [place] CORON 02/20/2015 QUE LEON MD Ot 458.0 ORTHOSTATIC HYPOTENSION 02/20/2015 QUE LEON MD Ot 584.9 ACUTE RENAL FAILURE, UNSPECIFIED 02/20/2015 QUE LEON MD Ot V15.88 HISTORY OF FALL 02/27/2015 ETELVINA LEONARD APRN L 593.9 UNSPECIFIED DISORDER OF KIDNEY AND URETER 03/01/2015 HAMMAD LEONARDA L 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 Ot 414.00 03/01/2015 HAMMAD LEONARDA L 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 Ot 780.2 03/01/2015 MADHAMMAD GoodmanA L 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 Ot V45.82 03/26/2015 Ot 786.09 03/26/2015 Ot [...] Garcia Ot V74.8 03/26/2015 BAIKYLAH ABAD L 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 Ot 396.3 03/26/2015 BAIMA KYLAH L 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 Ot 397.0 03/26/2015 BAIJENNIFFER KYLAH L 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 Ot 401.9 03/26/2015 BAIJENNIFFER KYLAH L 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 Ot 414.00 03/26/2015 BAIMA KYLAH L 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 Ot 250.00 03/26/2015 BAIMA, KYLAH L 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 Ot 272.4 03/26/2015 BAIMA, KYLAH L 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 Ot 305.1 03/26/2015 BAIMA, KYLAH L 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 Ot 401.9 03/26/2015 BAIMA, KYLAH L 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 Ot 414.00 03/26/2015 BAIMA, KYLAH L 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 Ot 424.90 03/26/2015 BAIMA, KYLAH L 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 Ot 496 03/26/2015 TAMARA OLVERA, PATRICIA L Ot 996.78 03/26/2015 TAMARA OLVERA, PATRICIA L Ot V72.63 03/26/2015 TAMARA OLVERA, PATRICIA L Ot V72.81 03/26/2015 TAMARA OLVERA, PATRICIA L Ot V74.8 03/26/2015 KARYN OLVERA, BYRON M Ot 272.4 03/26/2015 KARYN OLVERA, BYRON M Ot 338.29 03/26/2015 KARYN OLVERA, BYRON M Ot 401.9 03/26/2015 BAIMA, KYLAH L 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 Ot 414.00 03/26/2015 BAIMA, KYLAH L 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 Ot 429.3 03/26/2015 SHANA OLVERA, JEFERSON M Ot V72.84 03/26/2015 BAIMA, KYLAH L 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 Ot 272.4 03/26/2015 SHANA OLVERA, JEFERSON M Ot V72.84 03/26/2015 KOFI LOVERA FAC, ALI FACP CCDS Ot 272.4 03/26/2015 KOFI OLVERA FACC, ALI FACP CCDS Ot 414.00 03/26/2015 KOFI OLVERA FACC, ALI FACP CCDS Ot 414.8 03/26/2015 KOFI OLVERA FACC, ALI FACP CCDS Ot 458.9 03/26/2015 KOFI OLVERA FACC, ALI FACP CCDS Ot 780.4 03/26/2015 MADL, ETELVINA L 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 Ot 414.00 03/26/2015 MADL, ETELVINA L 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 Ot 780.2 03/26/2015 MADL, ETELVINA L 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 Ot V45.82 03/26/2015 BAIMA, KYLAH L 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 Ot 272.4 03/26/2015 BAIMA, KYLAH L 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 Ot 276.9 03/26/2015 BAIMA, KYLAH L 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 Ot 401.9 03/26/2015 BAIKYLAH ABAD L 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 Ot 414.00 03/26/2015 GELLENDER DO, BILL A Ot 250.00 03/26/2015 GELLENDER DO, BILL A Ot 272.4 03/26/2015 GELLENDER DO, BILL A Ot 414.00 04/05/2015 BAIJENNIFFER, KYLAH L 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 Ot 272.4 04/05/2015 BAIMA, KYLAH L 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 Ot 276.9 04/05/2015 BAIMA, KYLAH L 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 Ot 401.9 04/05/2015 BAIJENNIFFER, KYLAH L 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 Ot 414.00 04/05/2015 GELLENDER DO, BILL A Ot 250.00 04/05/2015 GELLENDER DO, BILL A Ot 272.4 04/05/2015 [facility] Ot 414.00 04/06/2015 MADLETELVINA L 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 Ot 414.00 04/06/2015 MADL, ETELVINA L 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 Ot 780.2 04/06/2015 MADL, ETELVINA L 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 Ot V45.82 05/22/2015 [facility] Garcia Ot 724.5 05/22/2015 [facility] Garcia Ot 733.90 05/24/2015 [facility] Garcia Ot 715.37 06/25/2015 [...] FACP CCDS Ot 530.81 07/16/2015 THOMPSON QURESHI TREADLE CUT OFF SAW OPERATOR Ot 916.0 ABRASION HIP LEG 07/16/2015 THOMPSON QURESHI TREADLE CUT OFF SAW OPERATOR Ot 923.10 CONTUSION OF FOREARM 07/16/2015 THOMPSON QURESHI TREADLE CUT OFF SAW OPERATOR Ot 959.7 LOWER LEG INJURY NOS 07/16/2015 THOMPSON QURESHI TREADLE CUT OFF SAW OPERATOR Ot E000.8 OTHER EXTERNAL CAUSE STATUS 07/16/2015 THOMPSON QURESHI TREADLE CUT OFF SAW OPERATOR Ot E849.6 ACCIDENT IN PUBLIC BLDG 07/16/2015 THOMPSON QURESHI TREADLE CUT OFF SAW OPERATOR Ot E888.9 FALL NOS 07/23/2015 BRYN [...] A Ot V74.8 09/13/2015 BAIMA, KYLAH L 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 Ot 396.3 09/13/2015 BAIMA, KYLAH L 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 Ot 397.0 09/13/2015 BAIMA, KYLAH L 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 Ot 401.9 09/13/2015 BAIMA, KYLAH L 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 Ot 414.00 09/13/2015 BAIMA, KYLAH L 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 Ot 250.00 09/13/2015 BAIMA, KYLAH L 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 Ot 272.4 09/13/2015 BAIMA, KYLAH L 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 Ot 305.1 09/13/2015 BAIMA, KYLAH L 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 Ot 401.9 09/13/2015 BAIMA, KYLAH L 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 Ot 414.00 09/13/2015 BAIMA, KYLAH L 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 Ot 424.90 09/13/2015 BAIMA, KYLAH L 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 Ot 496 09/13/2015 TAMARA OLVERA, PATRICIA L Ot 996.78 09/13/2015 TAMARA OLVERA, PATRICIA L Ot V72.63 09/13/2015 TAMARA OLVERA, PATRICIA L Ot V72.81 09/13/2015 TAMARA OLVERA, PATRICIA L Ot V74.8 09/13/2015 KARYN OLVERA, BYRON Bruner Ot 272.4 09/13/2015 BYRON BOSS MD Ot 338.29 09/13/2015 KARYN OLVERA, BYRON Bruner Ot 401.9 09/13/2015 BAIMA, KYLAH L 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 Ot 414.00 09/13/2015 BAIMA, KYLAH L 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 Ot 429.3 09/13/2015 SHANA OLVERA, JEFERSON Bruner Ot V72.84 09/13/2015 BAIMA, KYLAH L 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 Ot 272.4 09/13/2015 SHANA OLVERA, JEFERSON Bruner Ot V72.84 09/13/2015 KOFI OLVERA FACC, ALI FACP CCDS Ot 272.4 09/13/2015 KOFI OLVERA FACC, ALI FACP CCDS Ot 414.00 09/13/2015 KOFI OLVERA FACC, ALI FACP CCDS Ot 414.8 09/13/2015 KOFI OLVERA FACC, ALI FACP CCDS Ot 458.9 09/13/2015 KOFI OLVERA FACC, ALI FACP CCDS Ot 780.4 09/13/2015 MADL, ETELVINA L 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 Ot 414.00 09/13/2015 MADL, ETELVINA L 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 Ot 780.2 09/13/2015 MADL, ETELVINA L 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 Ot V45.82 09/13/2015 BAIMA, KYLAH L 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 Ot 272.4 09/13/2015 BAIMA, KYLAH L 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 Ot 276.9 09/13/2015 BAIMA, KYLAH L 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 Ot 401.9 09/13/2015 BAIMA, KYLAH L 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 Ot 414.00 09/13/2015 GELLENDER DO, BILL A [...] CCDS Ot 305.1 09/13/[address] [facility], ALI FACP CCDS Ot 401.9 09/13/[address] [facility], ALI FACP CCDS Ot 414.00 09/13/2015 KOFI OLVERA FAC, ALI FACP CCDS Ot 447.72 09/13/2015 KOFI OLVERA FAC, ALI FACP CCDS Ot 458.9 09/13/[address] [facility], ALI FACP CCDS Ot 496 09/13/[address] [facility], ALI FACP CCDS Ot 530.81 09/13/2015 GELLENDER DO, BILL Garcia Ot 250.00 09/13/2015 GELLENDER DO, BILL A Ot 959.7 09/13/2015 GELLENDER DO, BILL A Ot E000.8 09/13/2015 GELLENDER DO, BILL Garcia Ot E928.9 09/25/2015 KYLAH CREWS 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 Ot E78.5 09/25/2015 KYLAH CREWS 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 Ot I25.9 10/07/2015 JESSIE OLVERA, BETTINA Nation [...] 10/07/2015 JESSIE OLVERA, BETTINA Nation Ot Z79.4 CUSTODIAL (CURRENT) USE OF INSULIN 10/12/2015 GELLENDER DO, [...] 03/09/2016 MARLA EVERETT MD Ot Z79.899 OTHER CUSTODIAL (CURRENT) DRUG THERAPY 03/11/2016 MARLA EVERETT MD [...] CCDS Ot I25.10 ATHSCL HEART DISEASE OF [place] CORONARY 03/21/2016 KOFI OLVERA FACC, ALI FACP CCDS Ot E78.5 HYPERLIPIDEMIA, UNSPECIFIED 03/21/2016 KOFI OLVERA FACC, ALI FACP CCDS Ot I25.10 ATHSCL HEART DISEASE OF [place] CORONARY 04/02/2016 SHANA OLVERA, JEFERSON Bruner Ot [...] KEERTHI 12/30/2016 Ot 414.01 CORONARY ATHEROSCLEROSIS OF [place] CORON 12/30/2016 Ot 786.50 CHEST PAIN NOS [...] SCREEN-BACTERIAL DIS NEC 12/30/2016 BAIMA, KYLAH L 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 Ot 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 12/30/2016 BAIMA, KYLAH L 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 Ot 397.0 TRICUSPID VALVE DISEASE 12/30/2016 BAIMA, KYLAH L 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 Ot 401.9 HYPERTENSION NOS 12/30/2016 BAIMA, KYLAH L 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 Ot 414.00 CORON ATHEROSCLER NOS TYPE VESSEL, NATIV 12/30/2016 BAIMA, KYLAH L 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 Ot 250.00 DIAB MELVA WO COMPL, TYPE II OR UNSPEC TY 12/30/2016 BAIMA, KYLAH L 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 Ot 272.4 HYPERLIPIDEMIA NEC/NOS 12/30/2016 KYLAH CREWS L 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 Ot 305.1 TOBACCO USE DISORDER 12/30/2016 KYLAH CREWS L 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 Ot 401.9 HYPERTENSION NOS 12/30/2016 KYLAH CREWS L 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 Ot 414.00 CORON ATHEROSCLER NOS TYPE VESSEL, NATIV 12/30/2016 KYLHA CREWS L 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 Ot 424.90 ENDOCARDITIS NOS 12/30/2016 KYLAH CREWS L 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 Ot 496 CHR AIRWAY OBSTRUCT NEC 12/30/2016 PATRICIA MCDONALD MD Ot 996.78 OTH COMP DUE TO OTH INTRNL ORTHPEDIC DEV 12/30/2016 PATRICIA MCDONALD MD Ot V72.63 PRE-PROCEDURAL LABORATORY EXAMINATION 12/30/2016 PATRICIA MCDONALD MD Ot V72.81 [id number] CARDIOVASCULAR 12/30/2016 PATRICIA MCDONALD MD Ot V74.8 SCREEN-BACTERIAL DIS NEC 12/30/2016 BYRON BOSS MD Ot 272.4 HYPERLIPIDEMIA NEC/NOS 12/30/2016 BYRON BOSS MD Ot 338.29 OTHER CHRONIC PAIN 12/30/2016 BYRON BOSS MD Ot 401.9 HYPERTENSION NOS 12/30/2016 KYLAH CREWS L 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 Ot 414.00 CORON ATHEROSCLER NOS TYPE VESSEL, NATIV 12/30/2016 KYLAH CREWS L 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 Ot 429.3 CARDIOMEGALY 12/30/2016 JEFERSON SALDANA MD Ot V72.84 EXAM PRE-OPERATIVE NOS 12/30/2016 PERLAKYLAH ABAD L 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 Ot 272.4 HYPERLIPIDEMIA NEC/NOS 12/30/2016 SHANA OLVERA, [...] 780.4 DIZZINESS AND GIDDINESS 12/30/2016 KYLAH CREWS 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 Ot E78.5 HYPERLIPIDEMIA, UNSPECIFIED 12/30/2016 KYLAH CREWS 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 Ot I25.9 CHRONIC ISCHEMIC HEART DISEASE, UNSPECIF 12/30/2016 ETELVINA LEONARD 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 Ot 414.00 CORON ATHEROSCLER NOS TYPE VESSEL, NATIV 12/30/2016 ETELVINA LEONARD 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 Ot 780.2 SYNCOPE AND COLLAPSE 12/30/2016 ETELVINA LEONARD 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 Ot V45.82 PERCUTANEOUS TRANSLUM CORON ANGIOPLASTY 12/30/2016 KYLAH CREWS 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 Ot 272.4 HYPERLIPIDEMIA NEC/NOS 12/30/2016 KYLAH CREWS 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 Ot 276.9 ELECTROLYT/FLUID DIS NEC 12/30/2016 KYLAH CREWS 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 Ot 401.9 HYPERTENSION NOS 12/30/2016 KYLAH CREWS 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 Ot 414.00 CORON ATHEROSCLER NOS TYPE VESSEL, [...] AIRWAY OBSTRUCT NEC 12/30/[address] [facility], ALI FACP CCDS Ot 530.81 ESOPHAGEAL REFLUX 12/30/2016 KYLAH CREWS 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 Ot I71.4 ABDOMINAL AORTIC ANEURYSM, WITHOUT RUPTU [...] SITE NOT SPECIF 12/30/[address] [facility], BRADLY FACP CCDS Ot E78.5 HYPERLIPIDEMIA, UNSPECIFIED 12/30/[address] [facility], BRADLY FAC CCDS Ot I25.10 ATHSCL HEART DISEASE OF [place] CORONARY 01/01/2017 ADELFO WASHINGTON 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 Ot I71.4 ABDOMINAL AORTIC ANEURYSM, WITHOUT RUPTU 01/01/2017 ADELFO WASHINGTON 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 Ot I71.4 ABDOMINAL AORTIC ANEURYSM, WITHOUT RUPTU 01/01/2017 ADELFO WASHINGTON 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 Ot I71.4 ABDOMINAL AORTIC ANEURYSM, WITHOUT RUPTU 01/21/2017 ADELFO WASHINGTON 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 Ot I71.4 ABDOMINAL AORTIC ANEURYSM, WITHOUT RUPTU [...] SCREEN-BACTERIAL DIS NEC 11/26/2017 BAIMA, KYLAH L 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 Ot 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 11/26/2017 BAIMA, KYLAH L 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 Ot 397.0 TRICUSPID VALVE DISEASE 11/26/2017 BAIMA, KYLAH L 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 Ot 401.9 HYPERTENSION NOS 11/26/2017 BAIMA, KYLAH L 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 Ot 414.00 CORON ATHEROSCLER NOS TYPE VESSEL, NATIV 11/26/2017 BAIMA, KYLAH L 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 Ot 250.00 DIAB MELVA WO COMPL, TYPE II OR UNSPEC TY 11/26/2017 BAIMA, KYLAH L 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 Ot 272.4 HYPERLIPIDEMIA NEC/NOS 11/26/2017 BAIMA, KYLAH L 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 Ot 305.1 TOBACCO USE DISORDER 11/26/2017 BAIMA, KYLAH L 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 Ot 401.9 HYPERTENSION NOS 11/26/2017 BAIMA, KYLAH L 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 Ot 414.00 CORON ATHEROSCLER NOS TYPE VESSEL, NATIV 11/26/2017 BAIMA, KYLAH L 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 Ot 424.90 ENDOCARDITIS NOS 11/26/2017 BAIMA, KYLAH L 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 Ot 496 CHR AIRWAY OBSTRUCT NEC 11/26/2017 PATRICIA MCDONALD MD Ot 996.78 OTH COMP DUE TO OTH INTRNL ORTHPEDIC DEV 11/26/2017 PATRICIA MCODNALD MD, Ot V72.63 PRE-PROCEDURAL LABORATORY EXAMINATION 11/26/2017 PATRICIA MCDONALD MD, Ot V72.81 [id number] CARDIOVASCULAR 11/26/2017 REVEAL MD, PATRICIA L Ot V74.8 SCREEN-BACTERIAL DIS NEC 11/26/2017 KARYN OLVERA, BYRON Bruner Ot 272.4 HYPERLIPIDEMIA NEC/NOS 11/26/2017 KARYN OLVERA, BYRON Bruner Ot 338.29 OTHER CHRONIC PAIN 11/26/2017 KARYN OLVERA, BYRON Bruner Ot 401.9 HYPERTENSION NOS 11/26/2017 BAIMA, KYLAH L 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 Ot 414.00 CORON ATHEROSCLER NOS TYPE VESSEL, NATIV 11/26/2017 BAIMA, KYLAH L 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 Ot 429.3 CARDIOMEGALY 11/26/2017 SHANA OLVERA, JEFERSON Bruner Ot V72.84 EXAM PRE-OPERATIVE NOS 11/26/2017 BAIMA, KYLAH L 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 Ot 272.4 HYPERLIPIDEMIA NEC/NOS 11/26/2017 SHANA OLVERA, [...] DIZZINESS AND GIDDINESS 11/26/2017 BAIMA, KYLAH L 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 Ot E78.5 HYPERLIPIDEMIA, UNSPECIFIED 11/26/2017 BAIMA, KYLAH L 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 Ot I25.9 CHRONIC ISCHEMIC HEART DISEASE, UNSPECIF 11/26/2017 MADL, ETELVINA L 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 Ot 414.00 CORON ATHEROSCLER NOS TYPE VESSEL, NATIV 11/26/2017 MADL, ETELVINA L 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 Ot 780.2 SYNCOPE AND COLLAPSE 11/26/2017 MADL, ETELVINA L 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 Ot V45.82 PERCUTANEOUS TRANSLUM CORON ANGIOPLASTY 11/26/2017 BAIMA, KYLAH L 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 Ot 272.4 HYPERLIPIDEMIA NEC/NOS 11/26/2017 BAIMA, KYLAH L 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 Ot 276.9 ELECTROLYT/FLUID DIS NEC 11/26/2017 BAIMA, KYLAH L 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 Ot 401.9 HYPERTENSION NOS 11/26/2017 BAIMA, KYLAH L 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 Ot 414.00 CORON ATHEROSCLER NOS TYPE VESSEL, [...] Ot 530.81 ESOPHAGEAL REFLUX 11/26/2017 KYLAH CREWS 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 Ot I71.4 ABDOMINAL AORTIC ANEURYSM, WITHOUT RUPTU [...] CCDS Ot I25.10 ATHSCL HEART DISEASE OF [place] CORONARY 11/26/2017 ADELFO WASHINGTON 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 Ot I71.4 ABDOMINAL AORTIC ANEURYSM, WITHOUT RUPTU [...] CCDS Ot I25.10 ATHSCL HEART DISEASE OF [place] CORONARY 12/01/2017 KOFI OLVERA FACC, ALI FACP [...] CCDS Ot I25.10 ATHSCL HEART DISEASE OF [place] CORONARY 12/03/2017 KOFI OLVERA FACC, ALI FACP [...] CCDS Ot I25.10 ATHSCL HEART DISEASE OF [place] CORONARY 12/10/2017 KOFI OLVERA FACC, ALI FACP CCDS Ot I25.5 ISCHEMIC CARDIOMYOPATHY 12/10/2017 KOFI OLVERA FACC, ALI FACP CCDS Ot I73.9 PERIPHERAL VASCULAR DISEASE, UNSPECIFIED 12/10/2017 KOFI OLVERA FACC, ALI FACP CCDS Ot J43.8 OTHER EMPHYSEMA 12/10/2017 KOFI OLVERA FACC, ALI FACP CCDS Ot R06.02 SHORTNESS OF BREATH 12/10/2017 KOFI [facility]VERA [facility], ALI FACP CCDS Ot Z72.0 TOBACCO USE 12/17/2017 KOFI OLVERA FACC, ALI FACP CCDS Ot E11.9 TYPE 2 DIABETES MELLITUS WITHOUT COMPLIC 12/17/2017 KOFI OLVERA FACC, ALI FACP CCDS Ot I10 ESSENTIAL (PRIMARY) HYPERTENSION 12/17/2017 KOFI OLVERA FACC, ALI FACP CCDS Ot I25.10 ATHSCL HEART DISEASE OF [place] CORONARY 12/17/2017 KOFI OLVERA FACC, ALI FACP CCDS Ot I25.5 ISCHEMIC CARDIOMYOPATHY 12/17/2017 KOFI [facility]A [facility], ALI FACP CCDS Ot I73.9 PERIPHERAL VASCULAR DISEASE, UNSPECIFIED 12/17/2017 KOFI OLVERA FACC, ALI FACP CCDS Ot J43.8 OTHER EMPHYSEMA 12/17/2017 KOFI OLVERA FACC, ALI FACP CCDS Ot R06.02 SHORTNESS OF BREATH 12/17/2017 KOFI OLVERA FACC, ALI FACP CCDS Ot Z72.0 TOBACCO USE 12/22/2017 KYLAH CRWES 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 Ot I25.5 ISCHEMIC CARDIOMYOPATHY 12/28/2017 KOFI OLVERA FACC, ALI FACP CCDS Ot E11.9 TYPE 2 DIABETES MELLITUS WITHOUT COMPLIC 12/28/2017 KOFI OLVERA FACC, ALI FACP CCDS Ot I10 ESSENTIAL (PRIMARY) HYPERTENSION 12/28/2017 KOFI OLVERA FACC, ALI FACP CCDS Ot I25.10 ATHSCL HEART DISEASE OF [place] CORONARY 12/28/2017 KOFI OLVERA FACC, ALI FACP [...] CCDS Ot I25.10 ATHSCL HEART DISEASE OF [place] CORONARY 12/30/2017 KOFI OLVERA FAC, ALI FACP [...] INITIAL ENCOUNTER 01/07/2018 HARDEEP DORANTES Ot Z79.84 CUSTODIAL (CURRENT) USE OF ORAL HYPOGLYC 01/07/2018 HARDEEP [...] CCDS Ot I25.10 ATHSCL HEART DISEASE OF [place] CORONARY 01/08/2018 KOFI OLVERA FACC, BRADLY FACP [...] INITIAL ENCOUNTER 01/11/2018 HARDEEP DORANTES Ot Z79.84 CUSTODIAL (CURRENT) USE OF ORAL HYPOGLYC 01/11/2018 HARDEEP DORANTES Ot Z87.440 PERSONAL HISTORY OF URINARY (TRACT) INFE 01/11/2018 HARDEEP DORANTES Ot Z88.0 ALLERGY STATUS TO PENICILLIN 01/11/2018 HARDEEP DORANTES Ot Z88.5 ALLERGY STATUS TO NARCOTIC AGENT STATUS 01/11/2018 HARDEEP DORANTES Ot Z88.6 ALLERGY STATUS TO ANALGESIC AGENT STATUS 01/11/2018 HARDEEP DORANTES Ot Z90.711 ACQUIRED ABSENCE OF UTERUS WITH REMAININ 01/11/2018 HADREEP ODRANTES Ot Z95.5 PRESENCE OF CORONARY ANGIOPLASTY IMPLANT [...] INITIAL ENCOUNTER 01/13/2018 HARDEEP DORANTES Ot Z79.84 CUSTODIAL (CURRENT) USE OF ORAL HYPOGLYC 01/13/2018 HARDEEP DORANTES Ot Z87.440 PERSONAL HISTORY OF URINARY (TRACT) INFE 01/13/2018 HARDEEP DORANTES Ot Z88.0 ALLERGY STATUS TO PENICILLIN 01/13/2018 HARDEEP DORANTES Ot Z88.5 ALLERGY STATUS TO NARCOTIC AGENT STATUS 01/13/2018 HARDEEP DORANTES Ot Z88.6 ALLERGY STATUS TO ANALGESIC AGENT STATUS 01/13/2018 HAREDEP DORANTES Ot Z90.711 ACQUIRED ABSENCE OF UTERUS [...] MD, Ot I25.10 ATHSCL HEART DISEASE OF [place] CORONARY 02/15/2018 MARLA EVERETT MD, Ot J43.9 EMPHYSEMA, UNSPECIFIED 02/15/2018 MARLA EVERETT MD, Ot K21.9 GASTRO-ESOPHAGEAL REFLUX DISEASE WITHOUT 02/15/2018 MARLA EVERETT MD Ot R07.89 OTHER CHEST PAIN 02/15/2018 MARLA EVERETT MD, Ot Z79.82 TITLE CHECKER (CURRENT) USE OF ASPIRIN 02/15/2018 MARLA EVERETT MD Ot Z79.84 CUSTODIAL (CURRENT) USE OF ORAL HYPOGLYC 02/15/2018 MARLA [...] MD Ot I25.10 ATHSCL HEART DISEASE OF [place] CORONARY 02/17/2018 MARLA EVERETT MD, Ot J43.9 EMPHYSEMA, UNSPECIFIED 02/17/2018 MARLA EVERETT MD, Ot K21.9 GASTRO-ESOPHAGEAL REFLUX DISEASE WITHOUT 02/17/2018 MARLA EVERETT MD Ot R07.89 OTHER CHEST PAIN 02/17/2018 MARLA EVERETT MD Ot Z79.82 CUSTODIAL (CURRENT) USE OF ASPIRIN 02/17/2018 MARLA EVERETT MD Ot Z79.84 CUSTODIAL (CURRENT) USE OF ORAL HYPOGLYC 02/17/2018 MARLA [...] Adriana Ot I25.10 ATHSCL HEART DISEASE OF [place] CORONARY 02/21/2018 FELICIA ENCINAS DO Ot J43.9 EMPHYSEMA, UNSPECIFIED 02/21/2018 HUANG TRENTON PRAKASHA Adriana Ot K21.9 GASTRO-ESOPHAGEAL REFLUX DISEASE WITHOUT 02/21/2018 HUANG TRENTON PRAKASHA Adriana Ot N39.0 URINARY TRACT INFECTION, SITE NOT SPECIF 02/21/2018 HUANG FELICIA PRAKASH Ot R20.2 PARESTHESIA OF SKIN 02/21/2018 HUANG FELICIA PRAKASH Ot R53.1 WEAKNESS 02/21/2018 HUANG TRENTON PRAKASHA Adriana Ot Z79.84 TITLE CHECKER (CURRENT) USE OF ORAL HYPOGLYC 02/21/2018 HUANG [...] Adriana Ot I25.10 ATHSCL HEART DISEASE OF [place] CORONARY 02/23/2018 HUANG PRAKASH FELICIA Adriana Ot J43.9 EMPHYSEMA, UNSPECIFIED 02/23/2018 HUANG PRAKASH FELICIA Wright Ot K21.9 GASTRO-ESOPHAGEAL REFLUX DISEASE WITHOUT 02/23/2018 HUANG DO FELICIA Wright Ot N39.0 URINARY TRACT INFECTION, SITE NOT SPECIF 02/23/2018 HUANG PRAKASH FELICIA Adriana Ot R20.2 PARESTHESIA OF SKIN 02/23/2018 HUANG FELICIA Adriana Ot R53.1 WEAKNESS 02/23/2018 HUANG PRAKASH FELICIA Adriana Ot Z79.84 TITLE CHECKER (CURRENT) USE OF ORAL HYPOGLYC 02/23/2018 HUANG FELICIA Wright Ot Z87.01 PERSONAL HISTORY OF PNEUMONIA (RECURRENT 02/23/2018 HUANG PRAKASH FELICIA Wright Ot Z88.0 ALLERGY STATUS TO PENICILLIN 02/23/2018 HUANG PRAKASH FELICIA Adriana Ot Z88.6 ALLERGY STATUS TO ANALGESIC AGENT STATUS 02/23/2018 HUANG PRAKASH FELICIA Adriana Ot Z88.8 ALLERGY STATUS TO OTH DRUG/MEDS/BIOL SUB 02/23/2018 HUANG PRAKASH FEILCIA Adriana Ot Z90.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 BOTH [...] SCREEN-BACTERIAL DIS NEC 03/02/2018 BAIMA, KYLAH L 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 Ot 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 03/02/2018 BAIMA, KYLAH L 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 Ot 397.0 TRICUSPID VALVE DISEASE 03/02/2018 BAIMA, KYLAH L 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 Ot 401.9 HYPERTENSION NOS 03/02/2018 BAIMA, KYLAH L 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 Ot 414.00 CORON ATHEROSCLER NOS TYPE VESSEL, NATIV 03/02/2018 BAIMA, KYLAH L 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 Ot 250.00 DIAB MELVA WO COMPL, TYPE II OR UNSPEC TY 03/02/2018 BAIMA, KYLAH L 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 Ot 272.4 HYPERLIPIDEMIA NEC/NOS 03/02/2018 BAIMA, KYLAH L 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 Ot 305.1 TOBACCO USE DISORDER 03/02/2018 BAIMA, KYLAH L 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 Ot 401.9 HYPERTENSION NOS 03/02/2018 BAIMA, KYLAH L 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 Ot 414.00 CORON ATHEROSCLER NOS TYPE VESSEL, NATIV 03/02/2018 BAIMA, KYLAH L 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 Ot 424.90 ENDOCARDITIS NOS 03/02/2018 BAIMA, KYLAH L 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 Ot 496 CHR AIRWAY OBSTRUCT NEC 03/02/2018 PATRICIA MCDONALD MD Ot 996.78 OTH COMP DUE TO OTH INTRNL ORTHPEDIC DEV 03/02/2018 PATRICIA MCDONALD MD Ot V72.63 PRE-PROCEDURAL LABORATORY EXAMINATION 03/02/2018 PATRICIA MCDONALD MD Ot V72.81 [id number] CARDIOVASCULAR 03/02/2018 PATRICIA MCDONALD MD Ot V74.8 SCREEN-BACTERIAL DIS NEC 03/02/2018 BYRON BOSS MD Ot 272.4 HYPERLIPIDEMIA NEC/NOS 03/02/2018 KARYN OLVERA, BYRON Bruner Ot 338.29 OTHER CHRONIC PAIN 03/02/2018 KARYN OLVERA, BYRON Bruner Ot 401.9 HYPERTENSION NOS 03/02/2018 BAIMA, KYLAH L 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 Ot 414.00 CORON ATHEROSCLER NOS TYPE VESSEL, NATIV 03/02/2018 BAIMA, KYLAH L 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 Ot 429.3 CARDIOMEGALY 03/02/2018 SHANA OLVERA, JEFERSON Bruner Ot V72.84 EXAM PRE-OPERATIVE NOS 03/02/2018 BAIMA, KYLAH L 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 Ot 272.4 HYPERLIPIDEMIA NEC/NOS 03/02/2018 SHANA OLVERA, [...] DIZZINESS AND GIDDINESS 03/02/2018 BAIMA, KYLAH L 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 Ot E78.5 HYPERLIPIDEMIA, UNSPECIFIED 03/02/2018 BAIMA, KYLAH L 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 Ot I25.9 CHRONIC ISCHEMIC HEART DISEASE, UNSPECIF 03/02/2018 MADL, ETELVINA L 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 Ot 414.00 CORON ATHEROSCLER NOS TYPE VESSEL, NATIV 03/02/2018 MADL, ETELVINA L 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 Ot 780.2 SYNCOPE AND COLLAPSE 03/02/2018 MADL, ETELVINA L 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 Ot V45.82 PERCUTANEOUS TRANSLUM CORON ANGIOPLASTY 03/02/2018 BAIMA, KYLAH L 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 Ot 272.4 HYPERLIPIDEMIA NEC/NOS 03/02/2018 BAIMA, KYLAH L 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 Ot 276.9 ELECTROLYT/FLUID DIS NEC 03/02/2018 BAIMA, KYLAH L 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 Ot 401.9 HYPERTENSION NOS 03/02/2018 BAIMA, KYLAH L 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 Ot 414.00 CORON ATHEROSCLER NOS TYPE VESSEL, NATIV 03/02/2018 BILL CLEMENTE DO Ot 250.00 DIAB MELVA WO COMPL, TYPE II OR UNSPEC TY 03/02/2018 BRYN PRAKASHBILL Ot 272.4 HYPERLIPIDEMIA NEC/NOS 03/02/2018 BRYN PRAKASHBILL Ot 414.00 CORON ATHEROSCLER NOS TYPE VESSEL, NATIV 03/02/2018 BRYN PRAKASHBILL Ot 724.5 BACKACHE NOS 03/02/2018 BRYN PRAKASHBILL Ot 733.90 BONE CARTILAGE DIS NOS 03/02/2018 BRYN BILL PRAKSAH Ot 715.37 LOC OSTEOARTH NOS-ANKLE 03/02/2018 KOFI [...] Ot 530.81 ESOPHAGEAL REFLUX 03/02/2018 KYLAH CREWS 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 Ot I71.4 ABDOMINAL AORTIC ANEURYSM, WITHOUT RUPTU [...] CCDS Ot I25.10 ATHSCL HEART DISEASE OF [place] CORONARY 03/02/2018 ADELFO WASHINGTON 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 Ot I71.4 ABDOMINAL AORTIC ANEURYSM, WITHOUT RUPTU 03/02/2018 IBLL CLEMENTE DO Ot Z12.31 ENCNTR SCREEN MAMMOGRAM FOR MALIGNANT NE 03/02/2018 BILL CLEMENTE DO Ot R92.8 OTH ABN AND INCONCLUSIVE FINDINGS ON DX 03/02/2018 KOFI OLVERA FACC, BRADLY FACP CCDS Ot E11.9 TYPE 2 DIABETES MELLITUS WITHOUT COMPLIC 03/02/2018 KOFI OLVERA FACC, ALI FACP CCDS Ot I10 ESSENTIAL (PRIMARY) HYPERTENSION 03/02/2018 KOFI OLVERA FACC, ALI FACP CCDS Ot I25.10 ATHSCL HEART DISEASE OF [place] CORONARY 03/02/2018 KOFI OLVERA FACC, ALI FACP [...] CCDS Ot I25.10 ATHSCL HEART DISEASE OF [place] CORONARY 03/02/2018 KOFI OLVERA FACC, ALI FACP [...] CCDS Ot I25.10 ATHSCL HEART DISEASE OF [place] CORONARY 03/02/2018 KOFI OLVERA FACC, ALI FACP CCDS Ot I25.5 ISCHEMIC CARDIOMYOPATHY 03/02/2018 KOFI OLVERA FACC, ALI FACP CCDS Ot I73.9 PERIPHERAL VASCULAR DISEASE, UNSPECIFIED 03/02/2018 KOFI OLVERA FACC, ALI FACP CCDS Ot J43.8 OTHER EMPHYSEMA 03/02/2018 KOFI OLVERA FACC, ALI FACP CCDS Ot R06.02 SHORTNESS OF BREATH 03/02/2018 KOFI OLVERA FACC, ALI FACP CCDS Ot Z72.0 TOBACCO USE 03/02/2018 KYLAH CREWS 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 Ot I25.5 ISCHEMIC CARDIOMYOPATHY 03/02/2018 KOFI OLVERA FACC, ALI FACP CCDS Ot E11.9 TYPE 2 DIABETES MELLITUS WITHOUT COMPLIC 03/02/2018 KOFI OLVERA FACC, ALI FACP CCDS Ot E78.4 OTHER HYPERLIPIDEMIA 03/02/2018 KOFI OLVERA FACC, ALI FACP CCDS Ot I25.10 ATHSCL HEART DISEASE OF [place] CORONARY 03/02/2018 KOFI OLVERA FACC, ALI FACP [...] 03/03/2018 LEONEL ORTIZ MD Ot Z79.899 OTHER CUSTODIAL (CURRENT) DRUG THERAPY 03/03/2018 LEONEL ORTIZ MD [...] 03/04/2018 LEONEL ORTIZ MD Ot Z79.899 OTHER CUSTODIAL (CURRENT) DRUG THERAPY 03/04/2018 LEONEL ORTIZ MD [...] CCDS Ot I25.10 ATHSCL HEART DISEASE OF [place] CORONARY 03/09/2018 KOFI OLVERA FACC, ALI FACP [...] OLVERA FACC, ALI FACP CCDS Ot Z79.82 CUSTODIAL (CURRENT) USE OF ASPIRIN 03/09/2018 KOFI OLVERA FACC, ALI FACP CCDS Ot Z79.84 TITLE CHECKER (CURRENT) USE OF ORAL HYPOGLYC 03/09/2018 KOFI OLVERA FACC, ALI FACP CCDS Ot Z79.899 OTHER CUSTODIAL (CURRENT) DRUG THERAPY 03/09/2018 KOFI OLVERA FACC, [...] MD Ot I10 ESSENTIAL (PRIMARY) HYPERTENSION 03/10/2018 ELONEL ORTIZ MD Ot K21.0 GASTRO-ESOPHAGEAL REFLUX DISEASE WITH ES 03/10/2018 LEONEL ORTIZ MD Ot K22.2 ESOPHAGEAL OBSTRUCTION 03/10/2018 LEONEL ORTIZ MD, Ot K29.70 GASTRITIS, UNSPECIFIED, WITHOUT BLEEDING 03/10/2018 LEONEL ORTIZ MD Ot K44.9 DIAPHRAGMATIC HERNIA WITHOUT OBSTRUCTION 03/10/2018 LEONEL ORTIZ MD, Ot Z79.899 OTHER TITLE CHECKER (CURRENT) DRUG THERAPY 03/10/2018 LEONEL ORTIZ MD [...] CCDS Ot I25.10 ATHSCL HEART DISEASE OF [place] CORONARY 03/10/2018 KOFI HERNÁNDEZC, ALI FACP CCDS [...] KIRBY MD, FACC FACP CCDS Ot Z79.82 TITLE CHECKER (CURRENT) USE OF ASPIRIN 03/10/2018 BRADLY KIRBY MD, FACC FACP CCDS Ot Z79.84 CUSTODIAL (CURRENT) USE OF ORAL HYPOGLYC 03/10/2018 BRADLY KIRBY MD, FACC FACP CCDS Ot Z79.899 OTHER CUSTODIAL (CURRENT) DRUG THERAPY 03/10/2018 BRADLY KIRBY MD, [...] CCDS Ot I25.10 ATHSCL HEART DISEASE OF [place] CORONARY 03/10/2018 BRADLY KIRBY MD, FACC FACP [...] OLVERA FACC, ALI FACP CCDS Ot Z79.82 TITLE CHECKER (CURRENT) USE OF ASPIRIN 03/10/2018 KOFI HERNÁNDEZC, ALI FACP CCDS Ot Z79.84 TITLE CHECKER (CURRENT) USE OF ORAL HYPOGLYC 03/10/2018 KOFI OLVERA FACC, ALI FACP CCDS Ot Z79.899 OTHER CUSTODIAL (CURRENT) DRUG THERAPY 03/10/2018 KOFI OLVERA FACC, [...] V74.8 SCREEN-BACTERIAL DIS NEC 04/08/2018 KYLAH CREWS 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 Ot 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 04/08/2018 KYLAH CREWS 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 Ot 397.0 TRICUSPID VALVE DISEASE 04/08/2018 KYLAH CREWS 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 Ot 401.9 HYPERTENSION NOS 04/08/2018 KYLAH CREWS 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 Ot 414.00 CORON ATHEROSCLER NOS TYPE VESSEL, NATIV 04/08/2018 KYLAH CREWS L 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 Ot 250.00 DIAB MELVA WO COMPL, TYPE II OR UNSPEC TY 04/08/2018 BAIJENNIFFER KYLAH L 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 Ot 272.4 HYPERLIPIDEMIA NEC/NOS 04/08/2018 BAIJENNIFFER KYLAH L 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 Ot 305.1 TOBACCO USE DISORDER 04/08/2018 SCARLETT CREWSHER L 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 Ot 401.9 HYPERTENSION NOS 04/08/2018 BAIJENNIFFER KYLAH L 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 Ot 414.00 CORON ATHEROSCLER NOS TYPE VESSEL, NATIV 04/08/2018 BAIJENNIFFER KYLAH L 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 Ot 424.90 ENDOCARDITIS NOS 04/08/2018 KYLAH CREWS L 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 Ot 496 CHR AIRWAY OBSTRUCT NEC 04/08/2018 PATRICIA MCDONALD MD Ot 996.78 OTH COMP DUE TO OTH INTRNL ORTHPEDIC DEV 04/08/2018 PATRICIA MCDONALD MD, Ot V72.63 PRE-PROCEDURAL LABORATORY EXAMINATION 04/08/2018 PATRICIA MCDONALD MD Ot V72.81 [id number] CARDIOVASCULAR 04/08/2018 PATRICIA MCDONALD MD Ot V74.8 SCREEN-BACTERIAL DIS NEC 04/08/2018 BYRON BOSS MD Ot 272.4 HYPERLIPIDEMIA NEC/NOS 04/08/2018 BYRON BOSS MD Ot 338.29 OTHER CHRONIC PAIN 04/08/2018 BYRON BOSS MD Ot 401.9 HYPERTENSION NOS 04/08/2018 KYLAH CREWS L 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 Ot 414.00 CORON ATHEROSCLER NOS TYPE VESSEL, NATIV 04/08/2018 PERLAKYLAH ABAD L 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 Ot 429.3 CARDIOMEGALY 04/08/2018 JEFERSON SALDANA MD Ot V72.84 EXAM PRE-OPERATIVE NOS 04/08/2018 PERLAKYLAH ABAD L 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 Ot 272.4 HYPERLIPIDEMIA NEC/NOS 04/08/2018 JEFERSON SALDANA [...] DIZZINESS AND GIDDINESS 04/08/2018 BAIJENNIFFER, KYLAH L 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 Ot E78.5 HYPERLIPIDEMIA, UNSPECIFIED 04/08/2018 BAIMA, KYLAH L 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 Ot I25.9 CHRONIC ISCHEMIC HEART DISEASE, UNSPECIF 04/08/2018 MADL, ETELVINA L 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 Ot 414.00 CORON ATHEROSCLER NOS TYPE VESSEL, NATIV 04/08/2018 MADL, ETELVINA L 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 Ot 780.2 SYNCOPE AND COLLAPSE 04/08/2018 MADL, ETELVINA L 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 Ot V45.82 PERCUTANEOUS TRANSLUM CORON ANGIOPLASTY 04/08/2018 BAIMA, KYLAH L 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 Ot 272.4 HYPERLIPIDEMIA NEC/NOS 04/08/2018 BAIMA, KYLAH L 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 Ot 276.9 ELECTROLYT/FLUID DIS NEC 04/08/2018 BAIJENNIFFER, KYLAH L 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 Ot 401.9 HYPERTENSION NOS 04/08/2018 BAIJENNIFFER, KYLAH L 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 Ot 414.00 CORON ATHEROSCLER NOS TYPE VESSEL, [...] 530.81 ESOPHAGEAL REFLUX 04/08/2018 PERLAJENNIFFER KYLAH L 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 Ot I71.4 ABDOMINAL AORTIC ANEURYSM, WITHOUT RUPTU [...] CCDS Ot I25.10 ATHSCL HEART DISEASE OF [place] CORONARY 04/08/2018 ADELFO [place] 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 Ot I71.4 ABDOMINAL AORTIC ANEURYSM, WITHOUT RUPTU [...] CCDS Ot I25.10 ATHSCL HEART DISEASE OF [place] CORONARY 04/08/2018 KOFI OLVERA FACC, BRADLY FACP [...] CCDS Ot I25.10 ATHSCL HEART DISEASE OF [place] CORONARY 04/08/2018 KOFI OLVERA FACC, ALI FACP [...] CCDS Ot I25.10 ATHSCL HEART DISEASE OF [place] CORONARY 04/08/2018 KOFI OLVERA FACC, ALI FACP CCDS Ot I25.5 ISCHEMIC CARDIOMYOPATHY 04/08/2018 KOFI OLVERA FACC, ALI FACP CCDS Ot I73.9 PERIPHERAL VASCULAR DISEASE, UNSPECIFIED 04/08/2018 KOFI OLVERA FACC, ALI FACP CCDS Ot J43.8 OTHER EMPHYSEMA 04/08/2018 KOFI OLVERA FACC, ALI FACP CCDS Ot R06.02 SHORTNESS OF BREATH 04/08/2018 KOFI OLVERA FACC, ALI FACP CCDS Ot Z72.0 TOBACCO USE 04/08/2018 BAIMA, KYLAH L 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 Ot I25.5 ISCHEMIC CARDIOMYOPATHY 04/08/2018 KOFI OLVERA FACC, ALI FACP CCDS Ot E11.9 TYPE 2 DIABETES MELLITUS WITHOUT COMPLIC 04/08/2018 KOFI HERNÁNDEZC, ALI FACP CCDS Ot E78.4 OTHER HYPERLIPIDEMIA 04/08/2018 KOFI OLVERA FACC, ALI FACP CCDS Ot I25.10 ATHSCL HEART DISEASE OF [place] CORONARY 04/08/2018 KOFI OLVERA FACC, ALI FACP [...] CCDS Ot I25.10 ATHSCL HEART DISEASE OF [place] CORONARY 04/08/2018 KOFI HERNÁNDEZC, ALI FACP CCDS [...] CCDS Ot I25.10 ATHSCL HEART DISEASE OF [place] CORONARY 04/08/2018 KOFI OLVERA FACC, ALI FACP [...] CCDS Ot I25.10 ATHSCL HEART DISEASE OF [place] CORONARY 04/08/2018 KOFI OLVERA FACTj, ALI FACP [...] CCDS Ot I25.10 ATHSCL HEART DISEASE OF [place] CORONARY 04/23/2018 KOFI OLVERA FACC, ALI FACP [...] SCREEN-BACTERIAL DIS NEC 04/23/2018 ELEONORA KYLAH L 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 Ot 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 04/23/2018 ELEONORA KYLAH L 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 Ot 397.0 TRICUSPID VALVE DISEASE 04/23/2018 BAIMA, KYLAH L 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 Ot 401.9 HYPERTENSION NOS 04/23/2018 BAIMA, KYLAH L 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 Ot 414.00 CORON ATHEROSCLER NOS TYPE VESSEL, NATIV 04/23/2018 BAIMA, KYLAH L 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 Ot 250.00 DIAB MELVA WO COMPL, TYPE II OR UNSPEC TY 04/23/2018 BAIMA, KYLAH L 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 Ot 272.4 HYPERLIPIDEMIA NEC/NOS 04/23/2018 BAIMA, KYLAH L 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 Ot 305.1 TOBACCO USE DISORDER 04/23/2018 BAIMA, KYLAH L 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 Ot 401.9 HYPERTENSION NOS 04/23/2018 BAIMA, KYLAH L 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 Ot 414.00 CORON ATHEROSCLER NOS TYPE VESSEL, NATIV 04/23/2018 ELEONORA KYLAH L 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 Ot 424.90 ENDOCARDITIS NOS 04/23/2018 ELEONORA KYLAH L 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 Ot 496 CHR AIRWAY OBSTRUCT NEC 04/23/2018 PATRICIA MCDONALD MD Ot 996.78 OTH COMP DUE TO OTH INTRNL ORTHPEDIC DEV 04/23/2018 PATRICIA MCDONALD MD Ot V72.63 PRE-PROCEDURAL LABORATORY EXAMINATION 04/23/2018 PATRICIA MCDONALD MD Ot V72.81 [id number] CARDIOVASCULAR 04/23/2018 PATRICIA MCDONALD MD Ot V74.8 SCREEN-BACTERIAL DIS NEC 04/23/2018 BYRON BOSS MD Ot 272.4 HYPERLIPIDEMIA NEC/NOS 04/23/2018 BYRON BOSS MD Ot 338.29 OTHER CHRONIC PAIN 04/23/2018 BYRON BOSS MD Ot 401.9 HYPERTENSION NOS 04/23/2018 ELEONORA KYLAH L 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 Ot 414.00 CORON ATHEROSCLER NOS TYPE VESSEL, NATIV 04/23/2018 ELEONORA KYLAH L 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 Ot 429.3 CARDIOMEGALY 04/23/2018 JEFERSON SALDANA MD Ot V72.84 EXAM PRE-OPERATIVE NOS 04/23/2018 PERLAMASCARLETTKYLAH L 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 Ot 272.4 HYPERLIPIDEMIA NEC/NOS 04/23/2018 JEFERSON SALDANA [...] DIZZINESS AND GIDDINESS 04/23/2018 ELEONORA, KYLAH L 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 Ot E78.5 HYPERLIPIDEMIA, UNSPECIFIED 04/23/2018 PERLAMA, KYLAH L 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 Ot I25.9 CHRONIC ISCHEMIC HEART DISEASE, UNSPECIF 04/23/2018 ETELVINA LEONARD L 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 Ot 414.00 CORON ATHEROSCLER NOS TYPE VESSEL, NATIV 04/23/2018 ETELVINA LEONARD 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 Ot 780.2 SYNCOPE AND COLLAPSE 04/23/2018 ETELVINA LEONARD 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 Ot V45.82 PERCUTANEOUS TRANSLUM CORON ANGIOPLASTY 04/23/2018 KYLAH CREWS 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 Ot 272.4 HYPERLIPIDEMIA NEC/NOS 04/23/2018 BAIKYLAH ABAD L 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 Ot 276.9 ELECTROLYT/FLUID DIS NEC 04/23/2018 BAIKYLAH ABAD L 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 Ot 401.9 HYPERTENSION NOS 04/23/2018 BAIKYLAH ABAD 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 Ot 414.00 CORON ATHEROSCLER NOS TYPE VESSEL, [...] 530.81 ESOPHAGEAL REFLUX 04/23/2018 PERLAJENNIFFER KYLAH Maxine 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 Ot I71.4 ABDOMINAL AORTIC ANEURYSM, WITHOUT RUPTU 04/23/2018 BILL CLEMENTE DO Ot 250.00 DIAB MELVA WO COMPL, TYPE II OR UNSPEC TY 04/23/2018 BILL CLEMENTE DO Ot 959.7 LOWER LEG INJURY NOS 04/23/2018 BILL CLEMENTE DO Ot E000.8 OTHER EXTERNAL CAUSE STATUS 04/23/2018 BILL CLEMENTE DO Ot E928.9 ACCIDENT NOS 04/23/2018 BILL LCEMENTE DO Ot N39.0 URINARY TRACT INFECTION, SITE NOT SPECIF 04/23/2018 KOFI OLVERA FACC, ALI FACP CCDS Ot E78.5 HYPERLIPIDEMIA, UNSPECIFIED 04/23/2018 KOFI OLVERA FACC, ALI FACP CCDS Ot I25.10 ATHSCL HEART DISEASE OF [place] CORONARY 04/23/2018 ADELFO [place] 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 Ot I71.4 ABDOMINAL AORTIC ANEURYSM, WITHOUT RUPTU [...] CCDS Ot I25.10 ATHSCL HEART DISEASE OF [place] CORONARY 04/23/2018 KOFI OLVERA FACC, ALI FACP [...] CCDS Ot I25.10 ATHSCL HEART DISEASE OF [place] CORONARY 04/23/2018 KOFI OLVERA FACC, ALI FACP [...] CCDS Ot I25.10 ATHSCL HEART DISEASE OF [place] CORONARY 04/23/2018 KOFI OLVERA FACC, ALI FACP CCDS Ot I25.5 ISCHEMIC CARDIOMYOPATHY 04/23/2018 KOFI OLVERA FACC, ALI FACP CCDS Ot I73.9 PERIPHERAL VASCULAR DISEASE, UNSPECIFIED 04/23/2018 KOFI OLVERA FACC, ALI FACP CCDS Ot J43.8 OTHER EMPHYSEMA 04/23/2018 KOFI OLVERA FACC, ALI FACP CCDS Ot R06.02 SHORTNESS OF BREATH 04/23/2018 KOFI OLVERA FACC, ALI FACP CCDS Ot Z72.0 TOBACCO USE 04/23/2018 BAIKYLAH ABAD L 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 Ot I25.5 ISCHEMIC CARDIOMYOPATHY 04/23/2018 KOFI OLVERA FACC, ALI FACP CCDS Ot E11.9 TYPE 2 DIABETES MELLITUS WITHOUT COMPLIC 04/23/2018 KOFI OLVERA FACC, ALI FACP CCDS Ot E78.4 OTHER HYPERLIPIDEMIA 04/23/2018 KOFI OLVERA FACC, ALI FACP CCDS Ot I25.10 ATHSCL HEART DISEASE OF [place] CORONARY 04/23/2018 KOFI OLVERA FACC, ALI FACP CCDS Ot I25.5 ISCHEMIC CARDIOMYOPATHY 04/23/2018 KOFI OLVERA FACC, ALI FACP CCDS Ot I65.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 AND STENOSIS OF BILATERAL CALVERT 04/23/2018 KOFI OLVERA FACC, ALI FACP CCDS Ot I73.9 PERIPHERAL VASCULAR DISEASE, UNSPECIFIED 04/23/2018 KOFI OLVERA FACC, ALI FACP CCDS Ot R06.02 SHORTNESS OF BREATH 04/23/2018 KOFI OLVREA FACC, ALI FACP CCDS Ot Z72.0 TOBACCO USE 04/23/2018 KOFI OLVERA FACC, ALI FACP CCDS Ot E66.9 OBESITY, UNSPECIFIED 04/23/2018 KOFI OLVERA FACC, ALI FACP CCDS Ot I10 ESSENTIAL (PRIMARY) HYPERTENSION 04/23/2018 [facility]S Ot I25.10 ATHSCL HEART DISEASE OF [place] CORONARY 04/23/2018 KOFI OLVERA FACC, ALI FACP CCDS Ot I65.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 AND STENOSIS OF BILATERAL [place] 04/23/2018 [facility] F[facility] CCDS Ot I71.4 ABDOMINAL AORTIC ANEURYSM, WITHOUT RUPTU 04/23/2018 KOFI OLVERA FACC, ALI FACP CCDS Ot R07.89 OTHER CHEST PAIN 04/23/2018 [facility] F[facility] CCDS Ot R91.8 OTHER NONSPECIFIC ABNORMAL FINDING OF [place] 04/23/2018 KOFI HERNÁNDEZC, ALI FACP CCDS Ot Z72.0 TOBACCO USE 04/23/2018 KOFI OLVERA FAC, ALI FACP CCDS Ot Z95.828 PRESENCE OF OTHER VASCULAR IMPLANTS AND 04/25/2018 JESSY PANDEY TREADLE CUT OFF SAW OPERATOR Ot R06.83 SNORING 04/25/2018 JESSY PANDEY TREADLE CUT OFF SAW OPERATOR Ot R09.02 HYPOXEMIA 04/28/2018 JESSY PANDEY TREADLE CUT OFF SAW OPERATOR Ot R06.83 SNORING 04/28/2018 JESSY PANDEY TREADLE CUT OFF SAW OPERATOR Ot R09.02 HYPOXEMIA 05/14/2018 THOMPSON QURESHI APRN [...] APRN Ot I25.10 ATHSCL HEART DISEASE OF [place] CORONARY 05/14/2018 THOMPSON QURESHI APRN Ot J43.9 [...] INITIAL 05/14/2018 THOMPSON QURESHI APRN Ot Z79.82 TITLE CHECKER (CURRENT) USE OF ASPIRIN 05/14/2018 THOMPSON QURESHI APRN Ot Z79.84 TITLE CHECKER (CURRENT) USE OF ORAL HYPOGLYC 05/14/2018 THOMPSON [...] MIGRAINE, UNSP, NOT INTRACTABLE, WITHOUT 05/17/2018 THOMPSON UQRESHI APRN Ot I10 ESSENTIAL (PRIMARY) HYPERTENSION 05/17/2018 THOMPSON QURESHI APRN Ot I25.10 ATHSCL HEART DISEASE OF [place] CORONARY 05/17/2018 THOMPSON QURESHI APRN Ot J43.9 [...] INITIAL 05/17/2018 THOMPSON QURESHI APRN Ot Z79.82 TITLE CHECKER (CURRENT) USE OF ASPIRIN 05/17/2018 THOMPSON QURESHI APRN Ot Z79.84 CUSTODIAL (CURRENT) USE OF ORAL HYPOGLYC 05/17/2018 THOMPSON [...] FOR OTHER PREPROCEDURAL EXAMIN 07/30/2018 KYLAH CREWS 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 Ot I25.5 ISCHEMIC CARDIOMYOPATHY 07/30/2018 KYLAH CREWS Ot I25.5 ISCHEMIC CARDIOMYOPATHY 07/30/2018 JESSY PANDEY APRN Ot J44.9 CHRONIC OBSTRUCTIVE PULMONARY DISEASE, U 07/30/2018 LEONEL ORTIZ MD Ot E11.40 TYPE 2 DIABETES MELLITUS WITH DIABETIC N 07/30/2018 LEONEL ORTIZ MD Ot I10 ESSENTIAL (PRIMARY) HYPERTENSION 07/30/2018 LEONEL ORTIZ MD Ot I25.10 ATHSCL HEART DISEASE OF [place] CORONARY 07/30/2018 LEONEL ORTIZ MD, Ot J44.9 [...] HEMORRHOIDS 07/30/2018 LEONEL ORTIZ MD Ot Z79.84 TITLE CHECKER (CURRENT) USE OF ORAL HYPOGLYC 07/30/2018 LEONEL ORTIZ MD, Ot Z80.0 FAMILY HISTORY OF MALIGNANT NEOPLASM OF 07/30/2018 LEONEL ORTIZ MD, Ot Z87.891 PERSONAL HISTORY OF NICOTINE DEPENDENCE 08/01/2018 JESSY PANDEY APRN Ot J44.9 CHRONIC OBSTRUCTIVE PULMONARY DISEASE, U 08/01/2018 JESSY PANDEY APRN Ot R06.02 SHORTNESS OF BREATH 08/04/2018 LEONEL ORTIZ MD, Ot E11.40 TYPE 2 DIABETES MELLITUS WITH DIABETIC N 08/04/2018 LEONLE ORTIZ MD Ot I10 ESSENTIAL (PRIMARY) HYPERTENSION 08/04/2018 LEONEL ORTIZ MD Ot I25.10 ATHSCL HEART DISEASE OF [place] CORONARY 08/04/2018 LEONEL ORTIZ MD, Ot J44.9 CHRONIC OBSTRUCTIVE PULMONARY DISEASE, U 08/04/2018 LEONEL ORTIZ MD, Ot J45.909 UNSPECIFIED ASTHMA, UNCOMPLICATED 08/04/2018 LEONEL ORTIZ MD, Ot K21.9 GASTRO-ESOPHAGEAL REFLUX DISEASE WITHOUT 08/04/2018 LEONEL ORTIZ MD, Ot 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/O PERFORATION OR AB 08/04/2018 LEONEL ORTIZ MD Ot K62.5 HEMORRHAGE OF ANUS AND RECTUM 08/04/2018 LEONEL ORTIZ MD, Ot K64.0 FIRST DEGREE HEMORRHOIDS 08/04/2018 LEONEL ORTIZ MD, Ot Z79.84 TITLE CHECKER (CURRENT) USE OF ORAL HYPOGLYC 08/04/2018 LEONEL [...] MD Ot I25.10 ATHSCL HEART DISEASE OF [place] CORONARY 08/05/2018 LEONEL ORTIZ MD, Ot J44.9 [...] HEMORRHOIDS 08/05/2018 LEONEL ORTIZ MD, Ot Z79.84 TITLE CHECKER (CURRENT) USE OF ORAL HYPOGLYC 08/05/2018 LEONEL ORTIZ MD, Ot Z80.0 FAMILY HISTORY OF MALIGNANT NEOPLASM OF 08/05/2018 LEONEL ORTIZ MD, Ot Z87.891 PERSONAL HISTORY OF NICOTINE DEPENDENCE 08/13/2018 LEONEL ORTIZ MD, Ot E11.40 TYPE 2 DIABETES MELLITUS WITH DIABETIC N 08/13/2018 LEONEL ORTIZ MD, Ot I10 ESSENTIAL (PRIMARY) HYPERTENSION 08/13/2018 LEONEL ORTIZ MD, Ot I25.10 ATHSCL HEART DISEASE OF [place] CORONARY 08/13/2018 LEONEL ORTIZ MD, Ot J44.9 [...] HEMORRHOIDS 08/13/2018 LEONEL ORTIZ MD, Ot Z79.84 CUSTODIAL (CURRENT) USE OF ORAL HYPOGLYC 08/13/2018 LEONEL ORTIZ MD, Ot Z80.0 FAMILY HISTORY OF MALIGNANT NEOPLASM OF 08/13/2018 LEONEL ORTIZ MD, Ot Z87.891 PERSONAL HISTORY OF NICOTINE DEPENDENCE Procedures Code Description Performed By Performed On 59.79 URIN INCONTIN REPAIR NEC 01/28/2012 79.36 OP RED-INT FIX TIB/FIBUL 06/17/2012 93245 HEMOCCULT 09/07/2012 14574 PAP SMEAR 09/13/2012 63158 ROUTINE VENIPUNCTURE 10/11/2012 64121 A1C (IN-HOUSE) 10/11/2012 51551 URINE DRUG SCREEN (IN-HOUSE ) 10/11/2012 17646 MICRO ALBUMIN-IN HOUSE 10/11/2012 05184 CMP 10/11/2012 44934 LIPID PANEL 10/11/2012 0742515 GFR CALC (RESULT ONLY) 10/11/2012 48826 MICROALBUMIN 10/12/2012 33792 URINE DRUG SCREEN (IN-HOUSE ) 10/22/2012 23816 MAMMOGRAM, SCREENING 10/24/2012 Q0091 PAP SMEAR OBTAIN SMEAR 10/24/2012 28519 ROUTINE VENIPUNCTURE 12/02/2012 14606 URINE DRUG SCREEN (IN-HOUSE ) 12/02/2012 14328 URINE PCP GC/MS 12/03/2012 07455 TSH 12/04/2012 05673 ROUTINE VENIPUNCTURE 02/08/2013 30829 A1C (IN-HOUSE) 02/08/2013 55120 URINE DRUG SCREEN (IN-HOUSE ) 02/08/2013 19612 MICRO ALBUMIN-IN HOUSE 02/08/2013 77417 CMP 02/08/2013 4734918 GFR CALC (RESULT ONLY) 02/08/2013 77681 CBC 02/08/2013 76249 MICROALBUMIN 02/08/2013 Vivian Cha 02/11/2013 91556 DEBRIDE NAIL >6 06/03/2013 65908 ROUTINE VENIPUNCTURE 08/10/2013 G0008 FLU ADMINISTRATION ( MEDICARE ONLY) 08/10/2013 48667 URINE DRUG SCREEN (IN-HOUSE ) 08/10/2013 73560 CBC 08/10/2013 98575 CMP 08/10/2013 16469 LIPID PANEL 08/10/2013 7400847 GFR CALC (RESULT ONLY) 08/10/2013 44368 TSH 08/11/2013 96014 A1C (RML) 08/11/2013 33185 UA W/ CULTURE IF INDICATED 08/17/2013 01738 CULTURE URINE 08/18/2013 78178 DEBRIDE NAIL >6 09/02/2013 43054 DEBRIDE NAIL >6 12/09/2013 54962 CMP 2014 16033 MAGNESIUM 2014 18434 A1C (IN-HOUSE) 2014 97293 ROUTINE VENIPUNCTURE 02/27/2014 4454389 GFR CALC (RESULT ONLY) 02/27/2014 83111 BMP 02/27/2014 38870 DEBRIDE NAIL >6 03/10/2014 12871 URINE DRUG SCREEN (IN-HOUSE ) 04/03/2014 08831 ROUTINE VENIPUNCTURE 05/22/2014 GENERAL JEFERSON VALLE 05/22/2014 69377 A1C (IN-HOUSE) 05/22/2014 5821395 GFR CALC (RESULT ONLY) 05/22/2014 67584 CMP 05/22/2014 54208 TSH 05/22/2014 General Jeferson Valle 06/20/2014 40721 ROUTINE VENIPUNCTURE 08/28/2014 30707 OXIMETRY 08/28/2014 07043 A1C (IN-HOUSE) 08/28/2014 95931 BMP 08/28/2014 90261 TSH 08/28/2014 03723 OXIMETRY 11/13/2014 95216 ROUTINE VENIPUNCTURE 11/27/2014 02609 XRAY CHEST 2 VIEW 11/27/2014 84609 CMP 11/27/2014 02686 TSH 11/27/2014 61478 CBC 11/27/2014 41649 MYCOPLASMA ANTIBODY 11/27/2014 43793 XRAY KNEE LEFT, 1 OR 2 VIEWS 12/11/2014 89476 XRAY ANKLE R, 2 VIEWS 12/11/2014 89888 ROUTINE VENIPUNCTURE 02/19/2015 11327 ECHO 2D 02/19/2015 46465 AMERITOX 02/19/2015 CARDIOLOG BRADLY KIRBY 02/19/2015 04089 MAGNESIUM 02/19/2015 84862 CBC 02/19/2015 5604939 GFR CALC (RESULT ONLY) 02/19/2015 87025 CMP 02/19/2015 8355930 SPTYPE 02/19/2015 57659 TSH 02/19/2015 73060 ROUTINE VENIPUNCTURE 02/27/2015 92595 CMP 02/27/2015 7708365 GFR CALC (RESULT ONLY) 02/27/2015 Results Test Result Range [facility] - 01/25/18 11:55 GLUCOSE 92 mg/dL 65-99 UREA NITROGEN (BUN) 20 mg/dL 7-25 CREATININE 0.86 mg/dL 0.50-1.05 eGFR NON-AFR. SAMOAN 77 mL/min/1.73m2 > OR=60 eGFR 89 mL/min/1.73m2 [...] culture - 02/21/18 18:11 Bacterial urine culture [id number] NRG COLONY COUNT >100,000/ML NRG Automated blood [...] 11.9 fL 7.5-12.5 ABSOLUTE NEUTROPHILS 4890 cells/uL 9036-0892 ABSOLUTE LYMPHOCYTES 3685 cells/uL 850-3900 ABSOLUTE MONOCYTES [...] Status Pt. Type Provider Facility Loc./Unit Complaint [id number] 02/27/2015 09:51:00 02/27/2015 23:59:59 CLS Outpatient MADL TREADLE CUT OFF SAW OPERATOR, ETELVINA L [id number] 02/19/2015 08:48:00 02/19/2015 23:59:59 CLS Outpatient MADL TREADLE CUT OFF SAW OPERATOR, ETELVINA L [id number] 02/09/2015 08:56:00 02/09/2015 23:59:59 CLS Outpatient NOEMY DOLADONNA Adriana [id number] 12/11/2014 14:31:00 12/11/2014 23:59:59 CLS Outpatient MADL TREADLE CUT OFF SAW OPERATOR, ETELVINA L [id number] 12/11/2014 14:31:00 12/11/2014 23:59:59 CLS Outpatient LADONNA SALGUERO DO Adriana [id number] 11/27/2014 13:24:00 11/27/2014 23:59:59 CLS Outpatient LADONNA SALGUERO DO Adriana [id number] 11/27/2014 13:24:00 11/27/2014 23:59:59 CLS Outpatient MADL TREADLE CUT OFF SAW OPERATOR, ETELVINA L [id number] 11/13/2014 09:52:00 11/13/2014 23:59:59 CLS Outpatient MADL TREADLE CUT OFF SAW OPERATOR, ETELVINA L [id number] 10/23/2014 13:14:00 10/23/2014 23:59:59 CLS Outpatient MADL TREADLE CUT OFF SAW OPERATOR, ETELVINA L [id number] 09/25/2014 13:26:00 09/25/2014 23:59:59 CLS Outpatient MADL TREADLE CUT OFF SAW OPERATOR, ETELVINA L [id number] 08/28/2014 09:22:00 08/28/2014 23:59:59 CLS Outpatient MADL TREADLE CUT OFF SAW OPERATOR, ETELVINA L [id number] 08/28/2014 09:22:00 08/28/2014 23:59:59 CLS Outpatient MADL TREADLE CUT OFF SAW OPERATOR, ETELVINA L [id number] 07/24/2014 09:55:00 07/24/2014 23:59:59 CLS Outpatient SALGUERO DOLADONNA [id number] 06/19/2014 09:11:00 06/19/2014 23:59:59 CLS Outpatient SALGUERO DOLADONNA [id number] 05/22/2014 13:40:00 05/22/2014 23:59:59 CLS Outpatient MADL TREADLE CUT OFF SAW OPERATORETELVINA L [id number] 05/22/2014 13:40:00 05/22/2014 23:59:59 CLS Outpatient MADL TREADLE CUT OFF SAW OPERATOR, ETELVINA L [id number] 04/03/2014 14:31:00 04/03/2014 23:59:59 CLS Outpatient MADL TREADLE CUT OFF SAW OPERATOR, ETELVINA L [id number] 04/03/2014 14:31:00 04/03/2014 23:59:59 CLS Outpatient SALGUERO DOLADONNA [id number] 03/10/2014 08:26:00 03/10/2014 23:59:59 CLS Outpatient SALGUERO DOLADONNA [id number] 03/10/2014 08:26:00 03/10/2014 23:59:59 CLS Outpatient SALGUERO DOLADONNA [id number] 02/27/2014 14:59:00 02/27/2014 23:59:59 CLS Outpatient SALGUERO DOLADONNA [id number] 2014 09:28:00 2014 23:59:59 CLS Outpatient BYRON BOSS MD [id number] 2014 09:28:00 2014 23:59:59 CLS Outpatient BYRON BOSS MD [id number] 12/09/2013 07:39:00 12/09/2013 23:59:59 CLS Outpatient SALGUERO DOLADONNA Adriana [id number] 09/22/2013 09:11:00 09/22/2013 23:59:59 CLS Outpatient BYRON BOSS MD [id number] 09/02/2013 07:40:00 09/02/2013 23:59:59 CLS Outpatient SALGUERO DO LADONNA Wright [id number] 08/25/2013 15:49:00 08/25/2013 23:59:59 CLS Outpatient BYRON BOSS MD [id number] 08/17/2013 13:19:00 08/17/2013 23:59:59 CLS Outpatient BYRON BOSS MD [id number] 02/08/2013 10:18:00 02/08/2013 23:59:59 CLS Outpatient BYRON BOSS MD [id number] 12/07/2012 08:34:00 12/07/2012 23:59:59 CLS Outpatient ROMELIA FISCHER MD [id number] 12/02/2012 14:59:00 12/02/2012 23:59:59 CLS Outpatient LAURIE MORA APRN [id number] 11/01/2012 08:50:00 11/01/2012 23:59:59 CLS Outpatient [id number] 10/11/2012 08:39:00 10/11/2012 23:59:59 CLS Outpatient LAURIE MORA APRN [id number] 09/07/2012 09:19:00 09/07/2012 23:59:59 CLS Outpatient LAURIE MORA APRN [id number] 08/10/2013 14:39:00 Document Registration [id number] 06/03/2013 08:05:00 Document Registration [id number] 06/03/2013 08:05:00 Document Registration [id number] 02/08/2013 10:18:00 Document Registration [id number] 11/01/2018 14:40:00 11/01/2018 23:59:59 CLS Outpatient KING FISHMAN MD [facility] [id number] 07/13/2018 13:20:00 Document Registration [id number] 07/08/2018 15:20:00 Document Registration [id number] 2018 11:00:00 Document Registration [id number] 08/02/2018 08:15:00 08/02/2018 23:59:59 CLS Preadmit JESSY PANDEY APRN [facility] PULM COPD,SOB [id number] 05/03/2018 08:12:00 08/01/2018 00:01:00 DIS Outpatient JESSY PANDEY APRN [facility] PULM COPD,SOB [id number] 07/30/2018 11:45:00 07/30/2018 14:55:00 DIS Outpatient LEONEL ORTIZ MD [facility] ENDO +BLOOD IN STOOL/FAMILY HX COLON CA [id number] 07/23/2018 05:49:00 07/23/2018 11:04:00 DIS Outpatient LEONEL ORTIZ MD [facility] PREOP COLONOSCOPY [id number] 05/27/2018 10:09:00 05/27/2018 23:59:59 CLS Outpatient JESSY PNADEY TREADLE CUT OFF SAW OPERATOR [facility] RAD COPD [id number] 05/14/2018 15:04:00 05/14/2018 16:20:00 DIS Emergency THOMPSON QURESHI TREADLE CUT 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 [facility] ER R ANKLE PAIN/COLD [id number] 04/24/2018 20:37:00 04/25/2018 06:48:00 DIS Outpatient JESSY PANDEY TREADLE CUT OFF SAW OPERATOR [facility] SLEEP COPD,SOB [id number] 03/31/2018 11:36:00 03/31/2018 23:59:59 CLS Outpatient KOFI OLVERA FACC, ALI FACP CCDS [facility] RAD R07.89 CHEST PAIN [id number] 03/09/2018 06:49:00 03/09/2018 12:30:00 DIS Outpatient KOFI OLVERA FACC, ALI FACP CCDS [facility] CATH CAD [id number] 03/03/2018 09:01:00 03/03/2018 11:50:00 DIS Outpatient LEONEL ORTIZ MD [facility] ENDO DYSPHAGIA [id number] 02/26/2018 05:52:00 02/26/2018 12:49:00 DIS Outpatient LEONEL ORTIZ MD [facility] PREOP EGD [id number] 02/21/2018 16:36:00 02/21/2018 19:07:00 DIS Emergency FELICIA ENCINAS DO K [facility] ER WEAKNESS [id number] 02/15/2018 10:22:00 02/15/2018 15:46:00 DIS Emergency MARLA EVERETT MD [facility] ER CP [id number] 01/07/2018 16:24:00 01/07/2018 19:40:00 DIS Emergency HARDEEP DORANTES [facility] ER FALL WITH BIG BUMP ON L LEG [id number] 12/29/2017 12:20:00 12/29/2017 23:59:59 CLS Outpatient KOFI OLVERA FACC, ALI FACP CCDS [facility] RAD I25.10 CAD [id number] 12/21/2017 13:54:00 12/21/2017 23:59:59 CLS Outpatient KYLAH CREWS 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 [facility] CARD I25.5 CARDIOMYOPATHY [id number] 12/02/2017 08:24:00 12/02/2017 23:59:59 CLS Outpatient KOFI OLVERA FACC, ALI FACP CCDS [facility] RT R06.02 SOB [id number] 12/01/2017 08:04:00 12/01/2017 23:59:59 CLS Outpatient KOFI OLVERA FACTj, ALI FACP CCDS [facility] CARD R06.02 SOB [id number] 11/26/2017 11:24:00 11/26/2017 23:59:59 CLS Outpatient KOFI OLVERA FACC, ALI FACP CCDS [facility] CARD R06.02 SOB [id number] 11/09/2017 12:27:00 11/09/2017 23:59:59 CLS Outpatient BILL CLEMENTE DO [facility] RAD ABNORMAL MAMMO [id number] 10/27/2017 12:24:00 10/27/2017 23:59:59 CLS Outpatient BILL CLEEMNTE DO [facility] RAD SCREENING [id number] 12/31/2016 10:19:00 12/31/2016 23:59:59 CLS Outpatient ADELFO WASHINGTON 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 [facility] RAD AAA [id number] 04/07/2016 08:25:00 04/07/2016 11:40:00 DIS Outpatient JEFERSON SALDANA MD [facility] SDC DYSKINESIA [id number] 04/02/2016 05:42:00 04/02/2016 11:05:00 DIS Outpatient JEFERSON SALDANA MD [facility] PREOP DYSKINSIA [id number] 03/11/2016 11:17:00 03/11/2016 23:59:59 CLS Outpatient KOFI OLVERA FACC, BRADLY FACJanneth CCDS [facility] LAB CAD, HYPERLIPIDEMIA [id number] 03/09/2016 16:47:00 03/09/2016 19:30:00 DIS Emergency KARLOS OLVERA, MARLA Ackerman [facility] ER FEVER/DIARRHEA [id number] 03/05/2016 19:11:00 03/05/2016 21:37:00 DIS Emergency INES REYNOSO MD [facility] ER EYE SWELLING/ANKLE PAIN FROM FALL [id number] 12/18/2015 08:53:00 12/18/2015 23:59:59 CLS Outpatient KYLAH CREWS [facility] RAD ABDOMEN AORTIC ECTASIA [id number] 12/09/2015 10:18:00 12/09/2015 12:47:00 DIS Emergency BETTINA ROMAN MD [facility] ER R EYE SWELLING/PAIN [id number] 12/01/2015 13:15:00 12/01/2015 15:12:00 DIS Emergency MARLA EVERETT MD [facility] ER R EYE SWELLING [id number] 10/07/2015 16:35:00 10/07/2015 18:15:00 DIS Emergency BETTINA ROMAN MD [facility] ER POST OP/BLEEDING [id number] 10/04/2015 10:45:00 10/04/2015 23:59:59 CLS Outpatient BILL CLEMENTE DO Via [facility] LAB RESISTANT GUINFECTIONS [id number] 09/13/2015 10:52:00 09/13/2015 23:59:59 CLS Outpatient KYLAH CREWS Via [facility] LAB HLP,CAD [id number] 07/30/2015 15:05:00 07/30/2015 16:25:00 DIS Emergency HARDEEP DORANTES Via [facility] ER BACK,HIP PAIN [id number] 07/16/2015 17:17:00 07/16/2015 18:20:00 DIS Emergency THOMPSON QURESHI APRN Via [facility] ER L ARM, L KNEE INJ [id number] 07/09/2015 13:52:00 07/09/2015 23:59:59 CLS Outpatient BILL CLEMENTE DO Via [facility] RAD TRAUMA L 3RD TOE W/ DIABETES [id number] 06/11/2015 09:00:00 06/11/2015 23:59:59 CLS Outpatient KOFI OLVERA FACC, BRADLY NIX CCDS Via [facility] RAD ABDOMINAL AORTIAL ECTASIA [id number] 04/10/2015 10:25:00 04/10/2015 23:59:59 CLS Outpatient BILL CLEMENTE DO Via [facility] RAD R ANKLE PAIN, HX OF FX SURGERY [id number] 03/26/2015 11:17:00 03/26/2015 23:59:59 CLS Outpatient BILL CLEMENTE DO Via [facility] RAD BACK PAIN, [id number] 03/16/2015 10:23:00 03/16/2015 23:59:59 CLS Outpatient BILL CLEMENTE DO Via [facility] LAB DM II,CAD,HLP [id number] 03/16/2015 10:20:00 03/16/2015 23:59:59 CLS Outpatient KYLAH CREWSP Via [facility] LAB ELECTROLYTE DEPLETION ,CAD,HTN,HLP [id number] 03/01/2015 07:26:00 03/01/2015 23:59:59 CLS Outpatient ETELVINA LEONARDP [facility] CARD NEAR SYNCOPE EPISODE CAD [id number] 02/19/2015 16:09:00 02/20/2015 13:40:00 DIS Inpatient CAROLYN OLVERA, QUE Bowser [facility] 4TH ORTHOSTATIC HYPOTENSION; ACUTE RENAL FAILURE [id number] 12/30/2014 11:12:00 12/30/2014 14:54:00 DIS Emergency INES REYNOSO MD Via [facility] ER SOA,DIZZINESS [id number] 11/03/2014 08:58:00 11/03/2014 10:36:00 DIS Emergency DANIELITO SORIANO MD Via [facility] ER COUGH/CONGESTION [id number] 10/30/2014 14:50:00 10/30/2014 16:25:00 DIS Emergency HARDEEP DORANTES Via [facility] ER NAUSEATED/BODYACHES/ WEAKNESS EARACHE/RINGING [id number] 10/01/2014 13:53:00 10/01/2014 14:57:00 DIS Emergency FELICIA ENCINAS DO Via [facility] ER RECTAL BLEEDING [id number] 09/11/2014 09:46:00 09/11/2014 23:59:59 CLS Outpatient KOFI OLVERA FACC, BRADLY NIX CCDS [facility] CARD ISCHEMIC CARDIO MYOPATHY,CAD [id number] 09/01/2014 10:58:00 09/01/2014 11:40:00 DIS Emergency THOMPSON QURESHI APRN Via [facility] ER SWOLLEN EYE [id number] 08/31/2014 16:55:00 08/31/2014 18:16:00 DIS Emergency THOMPSON QURESHI APRN Via [facility] ER NECK SWELLING [id number] 07/10/2014 09:07:00 07/10/2014 11:55:00 DIS Out[facility] [id number] 07/05/2014 07:29:00 07/05/2014 23:59:59 CLS Outpatient JEFERSON SALDANA MD [facility] PREOP DYSPHAGIA [id number] 06/05/2014 08:24:00 06/05/2014 11:43:00 DIS Outpatient [facility] S[facility]EN[facility];FAMILY HISTORY [id number] 05/31/2014 07:28:00 05/31/2014 23:59:59 CLS Outpatient JEFERSON SALDANA MD Via [facility] PREOP SCREENING;FAMILY HISTORY [id number] 05/29/2014 12:18:00 05/29/2014 23:59:59 CLS Outpatient KYLAH CERWS [facility] LAB POST HEART CATH [id number] 05/23/2014 06:24:00 05/23/2014 20:30:00 DIS Outpatient KOFI OLVERA FACC, BRADLY NIX CCDS [facility] CATH SHORTNESS OF BREATH CAD ABNORMAL STRESS TEST [id number] 05/08/2014 12:02:00 05/08/2014 23:59:59 CLS Outpatient KYLAH CREWS Via [facility] CARD CAD [id number] 02/13/2014 12:30:00 02/13/2014 14:00:00 DIS Emergency THOMPSON QURESHI APRN Via [facility] ER FALL/BACK PAIN [id number] 02/09/2014 19:30:00 02/11/2014 10:45:00 DIS Inpatient LADONNA SALGUERO DO Via [facility] ICU ACUTE COPD EXACERBATION [id number] 2014 11:48:00 2014 23:59:59 CLS Outpatient BYRON BOSS MD [facility] LAB HTN,HYPERLIPADEIA [id number] 12/12/2013 06:44:00 12/12/2013 11:43:00 DIS Outpatient PATRICIA MCDONALD MD Via [facility] SDC PAINFUL HARDWARE RIGHT ANKLE [id number] 12/05/2013 14:33:00 12/05/2013 23:59:59 CLS Outpatient PATRICIA MCDONALD MD Via [facility] PREOP PAINFUL HARDWARE RIGHT ANKLE [id number] 11/04/2013 12:22:00 11/04/2013 12:46:00 DIS Emergency MARLA EVERETT MD Via [facility] ER SUTURE REMOVAL [id number] 10/31/2013 10:42:00 10/31/2013 23:59:59 CLS Outpatient KYLAH CREWSP Via [facility] CARD CAD,HTN [id number] 10/25/2013 08:26:00 10/25/2013 23:59:59 CLS Outpatient KYLAH CREWS Via [facility] LAB CAD,HEART VALVE DISEASE,HTN,HYPERLIPIDEMIA,COPD [id number] 10/25/2013 18:12:00 10/25/2013 20:10:00 DIS Emergency HARDEEP DORANTES Via [facility] ER FOOT INJ [id number] 10/21/2013 06:02:00 10/22/2013 11:11:00 DIS Outpatient EDUARDO VILLEGAS MD Via [facility] INTRINSIC SPHINCTER DEFICIENCY; INCONTINENCE [id number] 10/17/2013 09:25:00 10/17/2013 23:59:59 CLS Outpatient EDUARDO VILLEGAS MD Via [facility] PREOP INTRINSIC SPHINCTER DEFICIENCY; INCONTINENCE [id number] 08/03/2013 06:00:00 08/03/2013 09:56:00 DIS Outpatient [facility] [id number] 07/27/2013 12:35:00 07/27/2013 23:59:59 CLS Outpatient EDUARDO VILLEGAS MD Via [facility] PREOP INCONTINENCE [id number] 06/13/2013 14:57:00 06/13/2013 23:59:59 CLS Outpatient [id number] 04/18/2013 22:12:00 04/18/2013 23:34:00 DIS Emergency FELICIA ENCINAS DO Via [facility] ER REACTION TO MEDICATION [id number] 04/17/2013 14:11:00 04/17/2013 15:42:00 DIS Emergency MARCO A VAN MD Via [facility] ER VOMITING BODY ACHES [id number] 03/26/2015 11:17:00 Document Registration [id number] 01/19/2013 18:23:00 Document Registration [id number] 01/01/2013 15:27:00 Document Registration [id number] 12/26/2012 14:21:00 Document Registration [id number] 11/11/2012 16:20:00 Document Registration [id number] 10/24/2012 23:40:00 Document Registration [id number] 09/19/2012 19:49:00 Document Registration [id number] 09/13/2012 10:47:00 Document Registration [id number] 09/08/2012 15:08:00 Document Registration [id number] 09/04/2012 17:10:00 Document Registration [id number] 06/12/2012 16:25:00 Document Registration [id number] 06/03/2012 10:41:00 Document Registration [id number] 04/16/2012 09:50:00 Document Registration [id number] 03/17/2012 10:58:00 Document Registration [id number] 03/08/2012 10:14:00 Document Registration [id number] 02/01/2012 18:50:00 Document Registration [id number] 01/28/2012 06:00:00 Document Registration [id number] 01/21/2012 09:31:00 Document Registration [id number] 11/11/2011 07:21:00 Document Registration [id number] 10/30/2011 08:09:00 Document Registration [id number] 10/27/2011 07:16:00 Document Registration [id number] 10/24/2011 12:36:00 Document Registration [id number] 10/19/2011 11:22:00 Document Registration [id number] 08/07/2011 10:17:00 Document Registration [id number] 07/14/2011 13:47:00 Document Registration [id number] 07/06/2011 18:30:00 Document Registration [id number] 03/19/2011 05:41:00 Document Registration [id number] 03/13/2011 12:47:00 Document Registration [id number] 02/12/2011 10:12:00 Document Registration [id number] 02/06/2011 08:14:00 Document Registration [id number] 01/22/2011 05:55:00 Document Registration [id number] 01/15/2011 10:27:00 Document Registration [id number] 11/08/2010 10:08:00 Document Registration [id number] 09/05/2010 05:48:00 Document Registration [id number] 09/04/2010 09:00:00 Document Registration [id number] 08/26/2010 07:15:00 Document Registration [id number] 08/07/2010 14:40:00 Document Registration [id number] 08/02/2010 08:36:00 Document Registration [id number] 05/26/2010 12:24:00 Document Registration [id number] 04/14/2010 17:58:00 Document Registration [id number] 03/08/2010 10:03:00 Document Registration [id number] 03/07/2010 09:13:00 Document Registration [id number] 02/21/2010 08:56:00 Document Registration [id number] 08/02/2009 18:35:00 Document Registration [id number] 07/30/2015 23:46:44 ACT Document Registration
[2018-11-26] MEDS ORDERED: METO-333 PO (18:16)
[2018-11-26] MEDS ORDERED: CETI10TA23 PO (18:16)
[2018-11-26] MEDS ORDERED: CETI10TA17 PO (18:16)
[2018-11-26] MEDS ORDERED: TRAZ-190 PO (18:16)
[2018-11-26] MEDS ORDERED: MONT10TA24 PO (18:16)
[2018-11-26] MEDS ORDERED: CYCL10TA9 PO (18:16)
[2018-11-26] MEDS ORDERED: FLUO40CA PO (18:16)
[2018-11-26] MEDS ORDERED: NAPR-915 PO (18:16)
[2018-11-26] MEDS ORDERED: ACET500C4 PO (18:16)
[2018-11-26] MEDS ORDERED: AMLO5TAB7 PO (18:17)
[2018-11-26] MEDS ORDERED: UMEC1BLS IH (18:21)
[2018-11-26] MEDS: RT-ALBUTEROL/IPRATROPIUM 3 ML (DUONEB) VIAL INH SCH ×2 (19:16→22:08)
[2018-11-26 20:00] VITALS: BP 175/76
[2018-11-26] MEDS: ONDANSETRON 4 MG/2 ML (SDV) Z0FRAN IVP PRN (22:16)
[2018-11-27] VITALS (7 sets, daily range): BP systolic 126–204; BP diastolic 66–90
[2018-11-27] MEDS: RT-ALBUTEROL/IPRATROPIUM 3 ML (DUONEB) VIAL INH SCH ×5 (01:51→19:35)
[2018-11-27] MEDS: NS IV 1000 ML 1,000 ML IV SCH ×3 (02:00→17:39)
[2018-11-27] MEDS: ACETAMINOPHEN 325 MG TABLET PO PRN ×3 (02:04→15:32)
[2018-11-27 06:00] LABS: BASOPHILS % (AUTO) 0 % (0-10); EOSINOPHILS % (AUTO) 0 % (0-10); HEMATOCRIT 30 % (35-52); HEMOGLOBIN 8.7 G/DL (11.5-16.0); LYMPHOCYTES # (AUTO) 0.5 X 10^3 (1.0-4.0); LYMPHOCYTES % (AUTO) 5 % (12-44); MEAN CORPUSCULAR HEMOGLOBIN 22 PG (25-34); MEAN CORPUSCULAR HGB CONC 29 G/DL (32-36); MEAN CORPUSCULAR VOLUME 76 FL (80-99); MEAN PLATELET VOLUME 11.1 FL (7.4-10.4); MONOCYTES # (AUTO) 0.8 X 10^3 (0.0-1.0); MONOCYTES % (AUTO) 7 % (0-12); NEUTROPHILS % (AUTO) 88 % (42-75); PLATELET COUNT 210 10^3/uL (130-400); RED BLOOD COUNT 3.97 10^6/uL (4.35-5.85); WHITE BLOOD COUNT 10.3 10^3/uL (4.3-11.0)
[2018-11-27 06:19] LABS: BUN/CREATININE RATIO 35; CARBON DIOXIDE 15 MMOL/L (21-32); CHLORIDE 114 MMOL/L (98-107); CREATININE SERUM 0.54 MG/DL (0.60-1.30); GFR ESTIMATED > 60; GLUCOSE 106 MG/DL (70-105); POTASSIUM 3.7 MMOL/L (3.6-5.0); SODIUM 140 MMOL/L (135-145)
[2018-11-27] MEDS ORDERED: RT-ADVAIR HFA 45/21 MCG PER PUFF IH SCH (08:00)
[2018-11-27] MEDS: metFORMIN 500 MG (GLUCOPHAGE) TAB PO SCH ×2 (08:28→16:43)
[2018-11-27] MEDS: LEVOTHYROXINE 50 MCG (LEVOTHROID) TAB PO SCH (08:28)
[2018-11-27] MEDS: CYCLOBENZAPRINE 10 MG (FLEXERIL) TAB PO SCH ×3 (08:29→20:51)
[2018-11-27] MEDS: amLODIPine 5 MG (NORVASC) TAB PO SCH (08:29)
[2018-11-27] MEDS: LORATADINE (CLARITIN) 10 MG TAB PO SCH (08:29)
[2018-11-27] MEDS: GABAPENTIN 300 MG (NEURONTIN) CAP PO SCH ×3 (08:29→20:51)
[2018-11-27] MEDS: PANTOPRAZOLE 40 MG (PROTONIX) TAB PO SCH (08:29)
[2018-11-27] MEDS: FLUoxetine HCL 20 MG (PROzac) CAP PO SCH (08:29)
[2018-11-27] MEDS: meTOprolol TARTRATE 25 MG (LOPRESSOR) TABLET PO SCH ×2 (08:29→20:51)
[2018-11-27] MEDS: ONDANSETRON 4 MG/2 ML (SDV) Z0FRAN IVP PRN (08:47)
[2018-11-27] MEDS ORDERED: NON-FORMULARY MEDICATION 1 EA EA (Umeclidinium Brm/Vilanterol Tr (Anoro Ellipta 62.5-25 Mc IH SCH (09:00)
[2018-11-27] MEDS ORDERED: NAPR-915 PO (11:42)
[2018-11-27] MEDS ORDERED: CYCL10TA9 PO (11:43)
[2018-11-27] MEDS ORDERED: ACET-2267 PO (11:45)
--- NOTE | 2018-11-27 11:54 | NUR ---
SPOKE TO PATIENT SHE BROUGHT HER MEDICATION BOTTLES IN. STATED ALL HER INHALERS. ATORVASTATIN, AMLODIPINE, AND CYCLOBENZAPRINE WHERE ALL EMPTY. SHE ALSO HAD A BOTTLE WITH NO LABEL STATES SHE RECEIVED THEM FROM DR. MEYERS A SAMPLE BUT DID NOT KNOW THE NAME.
--- NOTE | 2018-11-27 11:58 | NUR ---
DR SALGUERO NOTIFIED BY THIS RN DUE TO PTS SEPSIS SCREENING RESULTING IN AT RISK DUE TO INCREASED PULSE AND TEMP. NO NEW ORDERS AT THIS TIME. THIS RN WILL CONTINUE TO MONITOR PT STATUS.
--- NOTE | 2018-11-27 12:16 | History & Physicial (CHS) ---
HPI History of Present Illness: This is a 53 [address] patient of Dr[address] Menon who presented to the ER with c/o of n/v and diarrhea for the past couple of days. Denies fever at home, reports generalized abdominal pain and overall fatigued and not feeling well. Denies blood in stool or emesis. Pt has hx of COPD and uses 2L nc at home, denies respiratory complaints. Source: patient Date seen by provider: Nov 27, 2018 Time Seen by Provider: 08:00 Attending Physician Ladonna Salguero DO [facility] Center[facility] Consult Date of Admission Nov 26, 2018 at 15:58 Home Medications Home Medications Reviewed patient Home Medication Reconciliation performed by pharmacy medication reconciliations shop technician and/or nursing. Patients Allergies have been reviewed. Allergies Coded Allergies: Penicillins (Verified Allergy, Mild, Hives, 07/23/18) Jbpzoqv-Org-Qfu Reductase Inhibitor (Verified Allergy, Unknown, 07/23/18) amlodipine besylate (Verified Allergy, Unknown, 07/23/18) benazepril HCl (Verified Allergy, Unknown, 07/23/18) aspirin (Verified Adverse Reaction, Mild, Nausea, 07/23/18) codeine (Verified Adverse Reaction, Mild, Nausea, 07/23/18) tramadol (Verified Adverse Reaction, Mild, N/V, 07/23/18) KIA-Xgzhsw-Fgjhzg Hx Patient Social History Alcohol Use: Denies Use Recreational Drug Use: No Smoking Status: Former Smoker Type Used: Cigarettes Recent Foreign Travel: No Contact w/other who traveled: No Recent Hopitalizations: No Recent Infectious Disease Expo: No Physical Abuse Screen: No Sexual Abuse: No (as child) Immunizations Up To Date Tetanus Booster (TDap): Less than 5yrs Date of Pneumonia Vaccine: Jul 10, 2011 Date of Influenza Vaccine: Aug 20, 2018 Past Medical History PMHx: HTN Chronic pain Coronary artery disease s/p stent COPD oxygen requiring - 2L NC PSurgHx: Hysterectomy Coronary artery stent Family Medical History Significant Family History: No Pertinent Family Hx Other Significan Family Hx: Patient reports she does not know Family History: Arthritis Diabetes mellitus Hypertension Review of Systems (CHC) Constitutional: see HPI Reviewed Test Results Reviewed Test Results Lab Laboratory Tests 11/26/18 14:40: White Blood Count 18.0H, Red Blood Count 4.86, Hemoglobin 10.4L, Hematocrit 37, Mean Corpuscular Volume 76L, Mean Corpuscular Hemoglobin 21L, Mean Corpuscular Hemoglobin Concent 28L, Red Cell Distribution Width 18.2H, Platelet Count 340, Mean Platelet Volume 11.4H, Neutrophils (%) (Auto) 90H, Lymphocytes (%) (Auto) 3L, Monocytes (%) (Auto) 5, Eosinophils (%) (Auto) 2, Basophils (%) (Auto) 0, Neutrophils # (Auto) 16.3H, Lymphocytes # (Auto) 0.6L, Monocytes # (Auto) 0.8, Eosinophils # (Auto) 0.3, Basophils # (Auto) 0.0, Neutrophils % (Manual) 98, Lymphocytes % (Manual) 1, Monocytes % (Manual) 1, Eosinophils % (Manual) 0, Basophils % (Manual) 0, Band Neutrophils 0, Hypochromasia SLIGHT, Microcytosis SLIGHT, Sodium Level 139, Potassium Level 4.8, Chloride Level 110H, Carbon Dioxide Level 17L, Anion Gap 12, Blood Urea Nitrogen 27H, Creatinine 0.72, Estimat Glomerular Filtration Rate > 60, BUN/Creatinine Ratio 38, Glucose Level 119H, Lactic Acid Level 1.99, Calcium Level 8.6, Corrected Calcium 8.8, Total Bilirubin 0.3, Aspartate Amino Transf (AST/SGOT) 25, Alanine Aminotransferase ( ALT/SGPT) 11, Alkaline Phosphatase 84, Total Protein 7.7, Albumin 3.8 11/26/18 15:25: Urine Color YELLOW, Urine Clarity SLIGHTLY CLOUDY, Urine pH 5, Urine Specific [employer] 1.020, Urine Protein 3+H, Urine Glucose (UA) NEGATIVE, Urine Ketones NEGATIVE, Urine Nitrite POSITIVEH, Urine Bilirubin 1+H, Urine Urobilinogen 1, Urine Leukocyte Esterase 3+H, Urine RBC (Auto) 2+H, Urine RBC 0-2, Urine WBC 25- 50H, Urine Squamous Epithelial Cells 5-10, Urine Crystals NONE, Urine Bacteria LARGEH, Urine Casts NONE, Urine Mucus SMALLH, Urine Culture Indicated YES 11/27/18 05:13: White Blood Count 10.3, Red Blood Count 3.97L, Hemoglobin 8.7L, Hematocrit 30L, Mean Corpuscular Volume 76L, Mean Corpuscular Hemoglobin 22L, Mean Corpuscular Hemoglobin Concent 29L, Red Cell Distribution Width 18.0H, Platelet Count 210, Mean Platelet Volume 11.1H, Neutrophils (%) (Auto) 88H, Lymphocytes (%) (Auto) 5L, Monocytes (%) (Auto) 7, Eosinophils (%) (Auto) 0, Basophils (%) (Auto) 0, Neutrophils # (Auto) 9.0H, Lymphocytes # (Auto) 0.5L, Monocytes # (Auto) 0.8, Eosinophils # (Auto) 0.0, Basophils # (Auto) 0.0, Sodium Level 140, Potassium Level 3.7, Chloride Level 114H, Carbon Dioxide Level 15L, Anion Gap 11, Blood Urea Nitrogen 19H, Creatinine 0.54L, Estimat Glomerular Filtration Rate > 60, BUN/Creatinine Ratio 35, Glucose Level 106H, Calcium Level 8.0L 11/27/18 10:57: Glucometer 129H Microbiology 11/26/18 C. difficile GDH Antigen & Toxins - Final, Complete Physical Exam-(CHC) Physical Exam Vital Signs VS - Last 72 Hours, by Label 11/26/18 11/26/18 11/26/18 11/26/18 14:47 16:34 16:35 16:35 Temp 97.5 98.6 99.6 Pulse 96 87 90 Resp 18 18 20 B/P (MAP) 126/87 (100) 126/87 (100) 145/85 (105) Pulse Ox 96 96 O2 Delivery Room Air 11/26/18 11/26/18 11/26/18 11/26/18 17:10 17:10 19:16 20:00 Pulse 92 Pulse Ox 91 91 97 94 O2 Delivery Room Air Nasal Cannula Nasal Cannula O2 Flow Rate 2.00 2.00 FiO2 21 11/26/18 11/26/18 11/27/18 11/27/18 20:00 22:09 00:00 01:52 Temp 97.6 85.5 Pulse 96 93 Resp 18 22 B/P (MAP) 175/76 (109) 188/80 (116) Pulse Ox 94 90 96 92 O2 Delivery Nasal Cannula Nasal Cannula Nasal Cannula Nasal Cannula O2 Flow Rate 2.00 2.00 2.00 2.00 11/27/18 11/27/18 11/27/18 11/27/18 04:00 08:00 08:30 10:09 Temp 99.0 101.8 101.7 Pulse 91 99 Resp 20 20 B/P (MAP) 175/77 (109) 204/90 (128) Pulse Ox 93 96 92 O2 Delivery Nasal Cannula Nasal Cannula Nasal Cannula O2 Flow Rate 2.00 2.00 1.50 Capillary Refill : Less Than 3 Seconds General Appearance: WD/WN, no apparent distress HEENT: PERRL/EOMI Respiratory: lungs clear, normal breath sounds, no respiratory distress Cardiovascular: regular rate, rhythm Gastrointestinal: soft; No guarding, No rebound; tenderness (mild, generalized) Neurologic/Psychiatric: alert, normal mood/affect, oriented x 3 Skin: normal color, warm/dry Assessment/Plan Assessment/Plan Admission Dx 1. Gastroenteritis, likely viral 2. Dehydration 3. UTI 4. Sepsis Admission Status: Inpatient Order (span 2 midnights) Reason for Inpatient Admission: with comorbid conditions will likely take 2 days to resolve acute gastroenteritis and UTI requiring IV antibiotics Assessment & Plan 1. Gastroenteritis, likely viral - pt admitted for medical floor 11/26/18 - supportive care with IVF, antiemetics - continues to have n/v and diarrhea - C. diff neg 2. Dehydration - improved with IVF 3. UTI - asymptomatic but evidence of UTI on UA - started on Rocephin in the ER - blood and urine cultures pending 4. Sepsis - after admission patient met criteria of sepsis due to developing fever of 101 , tachycardia - LA in the 1.99; will repeat 5. Hypertension - home BP meds restarted this am - elevated BP likely exacerbated by n/v 6. chronic respiratory failure with hypoxia secondary to COPD, requiring home O2 - continued on home O2 of 2L, not symptomatic Clinical Quality Measures DVT/VTE Risk/Contraindication: Risk Factor Score Per Nursin RFS Level Per Nursing on Admit: 2=Moderate LADONNA SALGUERO DO Nov 27, 2018 12:16
[2018-11-27] MEDS: NAPROXEN 250 MG (NAPROSYN) TABLET PO PRN (15:35)
[2018-11-27] MEDS: cefTRIAXone 1 GM/NS 50 ML IVPB IV SCH ×2 (15:37)
[2018-11-27] MEDS: MONTELUKAST 10 MG (SINGULAIR) TAB PO SCH (16:43)
[2018-11-27] MEDS: ADVAIR HFA 45/21 MCG INHALER 8 GM IH SCH (19:41)
[2018-11-27] MEDS: ATORVASTATIN 40 MG (LIPITOR) TABLET PO SCH (20:51)
[2018-11-27] MEDS: traZODone 100 MG (DESYREL) TAB PO SCH (20:51)
[2018-11-28] VITALS: BP 117/57
[2018-11-28] MEDS: NS IV 1000 ML 1,000 ML IV SCH ×3 (01:58→17:59)
[2018-11-28] MEDS: ACETAMINOPHEN 325 MG TABLET PO PRN ×3 (01:58→18:00)
[2018-11-28] MEDS: RT-ALBUTEROL/IPRATROPIUM 3 ML (DUONEB) VIAL INH SCH ×4 (02:56→19:31)
[2018-11-28 04:00] VITALS: BP 124/58
[2018-11-28] MEDS: metFORMIN 500 MG (GLUCOPHAGE) TAB PO SCH ×2 (06:09→16:30)
[2018-11-28 08:00] VITALS: BP 127/63
[2018-11-28] MEDS: ADVAIR HFA 45/21 MCG INHALER 8 GM IH SCH ×2 (08:41→19:36)
[2018-11-28] MEDS: LEVOTHYROXINE 50 MCG (LEVOTHROID) TAB PO SCH (08:48)
[2018-11-28] MEDS: amLODIPine 5 MG (NORVASC) TAB PO SCH (08:48)
[2018-11-28] MEDS: meTOprolol TARTRATE 25 MG (LOPRESSOR) TABLET PO SCH ×2 (08:48→20:59)
[2018-11-28] MEDS: CYCLOBENZAPRINE 10 MG (FLEXERIL) TAB PO SCH ×3 (08:48→20:59)
[2018-11-28] MEDS: FLUoxetine HCL 20 MG (PROzac) CAP PO SCH (08:48)
[2018-11-28] MEDS: LORATADINE (CLARITIN) 10 MG TAB PO SCH (08:48)
[2018-11-28] MEDS: GABAPENTIN 300 MG (NEURONTIN) CAP PO SCH ×3 (08:48→20:59)
[2018-11-28] MEDS: PANTOPRAZOLE 40 MG (PROTONIX) TAB PO SCH (08:48)
[2018-11-28] MEDS: NAPROXEN 250 MG (NAPROSYN) TABLET PO PRN (08:56)
[2018-11-28 12:35] VITALS: BP 135/64
[2018-11-28 16:00] VITALS: BP 133/63
[2018-11-28] MEDS: MONTELUKAST 10 MG (SINGULAIR) TAB PO SCH (16:30)
[2018-11-28] MEDS: cefTRIAXone 1 GM/NS 50 ML IVPB IV SCH ×2 (16:31)
--- NOTE | 2018-11-28 17:00 | Progress Note (SOAP) ---
Subjective Subjective/Events-last exam Pt continues to have multiple diarrhea stools with abdominal cramping. Vomiting improved. Review of Systems Date Seen by Provider: Nov 28, 2018 Time Seen by Provider: 09:00 Focused Exam Lactate Level 11/26/18 14:40: Lactic Acid Level 1.99 11/27/18 12:20: Lactic Acid Level 1.86 Objective Exam Last Set of Vital Signs Vital Signs Date Time Temp Pulse Resp B/P (MAP) Pulse Ox O2 Delivery O2 Flow Rate FiO2 11/28/18 12:35 98.6 66 20 135/64 (87) 94 Nasal Cannula 2.00 11/27/18 21:03 Capillary Refill : Less Than 3 Seconds I&O Intake and Output 11/28/18 00:00 Intake Total 6972 ml Balance 6972 ml Intake Oral 2922 ml IV Total 4050 ml # Voids 6 # Bowel Movements 3 General: Alert, Oriented X3, Cooperative Psych/Mental Status: Mood NL Results/Procedures Lab Laboratory Tests 11/27/18 19:24: Glucometer 104 11/28/18 10:32: Glucometer 92 11/28/18 14:27: Glucometer 89 Microbiology 11/26/18 Blood Culture - Preliminary, Resulted No growth 11/26/18 C. difficile GDH Antigen & Toxins - Final, Complete 11/26/18 Urine Culture - Final, Complete Escherichia coli Assessment/Plan Assessment/Plan Assessment & Plan 1. Gastroenteritis, likely viral - pt admitted for medical floor 11/26/18 - supportive care with IVF, antiemetics - continues to have n/v and diarrhea - C. diff neg 11/28 - continuing to have diarrhea and fever overnight; continue supportive care 2. Dehydration - improved with IVF RESOLVED 3. UTI - asymptomatic but evidence of UTI on UA - started on Rocephin in the ER - blood and urine cultures pending 11/28 - Urine cx - E. coli - sensitive to Rocephin; blood cx neg 4. Sepsis - after admission patient met criteria of sepsis due to developing fever of 101 , tachycardia - LA in the 1.99; will repeat RESOLVED 5. Hypertension - home BP meds restarted this am - elevated BP likely exacerbated by n/v IMPROVED 6. chronic respiratory failure with hypoxia secondary to COPD, requiring home O2 - continued on home O2 of 2L, not symptomatic Disp: anticipate patient will be ready for discharge tomorrow if fever resolved and diarrhea slows Clinical Quality Measures DVT/VTE Risk/Contraindication: Risk Factor Score Per Nursin RFS Level Per Nursing on Admit: 2=Moderate LADONNA SALGUERO DO Nov 28, 2018 16:59
[2018-11-28 20:00] VITALS: BP 150/70
[2018-11-28] MEDS: ONDANSETRON 4 MG/2 ML (SDV) Z0FRAN IVP PRN (20:59)
[2018-11-28] MEDS: ATORVASTATIN 40 MG (LIPITOR) TABLET PO SCH (20:59)
[2018-11-28] MEDS: traZODone 100 MG (DESYREL) TAB PO SCH (20:59)
[2018-11-29] VITALS (7 sets, daily range): BP systolic 152–182; BP diastolic 68–81
[2018-11-29] MEDS: RT-ALBUTEROL/IPRATROPIUM 3 ML (DUONEB) VIAL INH SCH ×3 (01:44→21:21)
[2018-11-29] MEDS: NS IV 1000 ML 1,000 ML IV SCH ×3 (02:04→17:21)
[2018-11-29] MEDS: ADVAIR HFA 45/21 MCG INHALER 8 GM IH SCH ×2 (06:56→21:21)
[2018-11-29] MEDS: metFORMIN 500 MG (GLUCOPHAGE) TAB PO SCH (07:40)
[2018-11-29] MEDS ORDERED: CHOLESTYRAMINE 4 GM (QUESTRAN LITE, PREVALITE) PKT PO NR (08:00)
[2018-11-29 08:38] LABS: BASOPHILS % (AUTO) 1 % (0-10); EOSINOPHILS % (AUTO) 1 % (0-10); HEMATOCRIT 26 % (35-52); HEMOGLOBIN 7.3 G/DL (11.5-16.0); LYMPHOCYTES # (AUTO) 0.9 X 10^3 (1.0-4.0); LYMPHOCYTES % (AUTO) 40 % (12-44); MEAN CORPUSCULAR HEMOGLOBIN 21 PG (25-34); MEAN CORPUSCULAR HGB CONC 28 G/DL (32-36); MEAN CORPUSCULAR VOLUME 77 FL (80-99); MEAN PLATELET VOLUME 11.2 FL (7.4-10.4); MONOCYTES # (AUTO) 0.3 X 10^3 (0.0-1.0); MONOCYTES % (AUTO) 13 % (0-12); NEUTROPHILS % (AUTO) 45 % (42-75); PLATELET COUNT 185 10^3/uL (130-400); RED BLOOD COUNT 3.41 10^6/uL (4.35-5.85); RED CELL DISTRIBUTION WIDTH 18.2 % (10.0-14.5); WHITE BLOOD COUNT 2.1 10^3/uL (4.3-11.0)
[2018-11-29 08:54] LABS: ALANINE AMINOTRANSFERASE 22 U/L (0-55); ALBUMIN 2.5 GM/DL (3.2-4.5); ALKALINE PHOSPHATASE 50 U/L (40-136); BILIRUBIN,TOTAL 0.1 MG/DL (0.1-1.0); BUN/CREATININE RATIO 15; CALCIUM 7.3 MG/DL (8.5-10.1); CARBON DIOXIDE 14 MMOL/L (21-32); CHLORIDE 119 MMOL/L (98-107); CREATININE SERUM 0.53 MG/DL (0.60-1.30); GFR ESTIMATED > 60; GLUCOSE 77 MG/DL (70-105); POTASSIUM 3.2 MMOL/L (3.6-5.0); SODIUM 141 MMOL/L (135-145)
[2018-11-29] MEDS: NAPROXEN 250 MG (NAPROSYN) TABLET PO PRN (10:29)
[2018-11-29] MEDS: CYCLOBENZAPRINE 10 MG (FLEXERIL) TAB PO SCH ×3 (10:31→21:55)
[2018-11-29] MEDS: GABAPENTIN 300 MG (NEURONTIN) CAP PO SCH ×3 (10:31→21:55)
[2018-11-29] MEDS: PANTOPRAZOLE 40 MG (PROTONIX) TAB PO SCH (10:31)
[2018-11-29] MEDS: LORATADINE (CLARITIN) 10 MG TAB PO SCH (10:31)
[2018-11-29] MEDS: amLODIPine 5 MG (NORVASC) TAB PO SCH (10:32)
[2018-11-29] MEDS: meTOprolol TARTRATE 25 MG (LOPRESSOR) TABLET PO SCH ×2 (10:32→21:55)
[2018-11-29] MEDS: LEVOTHYROXINE 50 MCG (LEVOTHROID) TAB PO SCH (10:32)
[2018-11-29] MEDS: FLUoxetine HCL 20 MG (PROzac) CAP PO SCH (10:32)
[2018-11-29] MEDS: MAGNESIUM 1 GM/100 ML IVPB 100 ML IV SCH ×2 (10:41→11:54)
[2018-11-29] MEDS: POTASSIUM CL 10MEQ/50ML IVPB 50 ML IV SCH ×4 (10:42→14:12)
--- NOTE | 2018-11-29 11:54 | Progress Note-Hospitalist ---
Subjective HPI/CC On Admission Date Seen by Provider: Nov 29, 2018 Time Seen by Provider: 11:00 Subjective/Events-last exam Patient doing a lot better compared to this morning since less diarrhea Questran started and patient feels like that is helping White count 2.1 down from elevation at 18 so we will consult hematology and also considering hemoglobin is 7.4 Checking iron Lives in the [place] with her sister and [id number] Denies any pain Receive nebulizer treatments and she is still wheezing Review of Systems General: Fatigue Gastrointestinal: Diarrhea Focused Exam Lactate Level 11/26/18 14:40: Lactic Acid Level 1.99 11/27/18 12:20: Lactic Acid Level 1.86 Objective Exam Vital Signs Vital Signs Date Time Temp Pulse Resp B/P (MAP) Pulse Ox O2 Delivery O2 Flow Rate FiO2 11/29/18 08:00 Nasal Cannula 1.50 11/29/18 08:00 98.1 64 20 156/80 (105) 96 11/29/18 07:09 24 Capillary Refill : Less Than 3 Seconds General Appearance: No Apparent Distress, WD/WN, Chronically ill Respiratory: Chest Non Tender, Lungs Clear, Normal Breath Sounds, No Accessory Muscle Use, No Respiratory Distress Cardiovascular: Regular Rate, Rhythm, No Edema, No Gallop, No JVD, No Murmur, Normal Peripheral Pulses Neurologic/Psychiatric: Alert, Oriented x3, No Motor/Sensory Deficits, Normal Mood/Affect Results/Procedures Lab Laboratory Tests 11/29/18 08:25 Patient resulted labs reviewed. Assessment/Plan Assessment and Plan Assess & Plan/Chief Complaint Assessment per Dr Boudreaux: 1. Gastroenteritis, likely viral - pt admitted for medical floor 11/26/18 - supportive care with IVF, antiemetics - continues to have n/v and diarrhea - C. diff neg - checking stool leukocytes 2. Dehydration - improved with IVF 3. UTI - asymptomatic but evidence of UTI on UA - started on Rocephin in the ER - blood and urine cultures pending 4. Sepsis - after admission patient met criteria of sepsis due to developing fever of 101 , tachycardia - LA in the 1.99; will repeat 5. Hypertension - home BP meds restarted this am - elevated BP likely exacerbated by n/v 6. chronic respiratory failure with hypoxia secondary to COPD, requiring home O2 - continued on home O2 of 2L, not symptomatic 7. Neutropenia and anemia consulting hematology Diagnosis/Problems Diagnosis/Problems (1) Diarrhea Status: Acute Qualifiers: Diarrhea type: presumed infectious Qualified Codes: R19.7 - Diarrhea, unspecified (2) Sepsis Status: Acute Qualifiers: Sepsis type: sepsis due to unspecified organism Qualified Codes: A41.9 - Sepsis, unspecified organism (3) Anemia Status: Chronic Qualifiers: Anemia type: unspecified type Qualified Codes: D64.9 - Anemia, unspecified (4) Neutropenia Status: Acute Qualifiers: Neutropenia type: unspecified Qualified Codes: D70.9 - Neutropenia, unspecified (5) Urinary tract infection Status: Acute Qualifiers: Urinary tract infection type: acute cystitis Hematuria presence: without hematuria Qualified Codes: N30.00 - Acute cystitis without hematuria (6) Diabetes mellitus Status: Chronic Qualifiers: Diabetes mellitus type: type 2 Diabetes mellitus clinical writer insulin use: with clinical writer use Diabetes mellitus complication status: with circulatory complication Diabetes mellitus complication detail: with other circulatory complications Qualified Codes: E11.59 - Type 2 diabetes mellitus with other circulatory complications; Z79.4 - MCFP (current) use of insulin (7) CAD (coronary artery disease) Status: Chronic Qualifiers: [place] vs. transplanted heart: [place] heart (8) Blood in stool Status: Acute (9) Tobacco use Status: Acute (10) HTN (hypertension) Status: Chronic Qualifiers: Hypertension type: essential hypertension Qualified Codes: I10 - Essential (primary) hypertension Clinical Quality Measures DVT/VTE Risk/Contraindication: Risk Factor Score Per Nursin RFS Level Per Nursing on Admit: 2=Moderate ANALY BAPTISTE DO Nov 29, 2018 11:54
[2018-11-29] MEDS: CHOLESTYRAMINE 4 GM (QUESTRAN LITE, PREVALITE) PKT PO SCH ×3 (13:31→21:55)
--- NOTE | 2018-11-29 14:49 | Oncology Consultation ---
Visit Information Visit Information Date of Admission Nov 26, 2018 at 15:58 Attending Physician Rosaura Boudreaux DO Admitting Physician [place] Chief Complaint Anemia, chronic infection, ? needing transfusion Interval History Ms. Fonseca is a 53 year old white female who was admitted for n/v, diarrhea and dehydration. Her Hb was 10 and WBC was 16 on admission. She was treated with IVF and IV antibiotics and her symptoms are better now. However, her Hb dropped to 7.3 over 3 days. We are consulted for the best approach of her anemia. She has COPD on home O2. She had right below knee amputation in 07/2018 due to non- healing and chronic infection of right ankle injury. I consulted the patient on: 11/29/18 14:47 Time Seen by Provider: 15:06 Review of Systems Constitutional: weakness Respiratory: short of breath Cardiovascular: see HPI Gastrointestinal: diarrhea, nausea, vomiting Health Status Allergies Coded Allergies: Penicillins (Verified Allergy, Mild, Hives, 07/23/18) Elmqsyp-Axn-Qtl Reductase Inhibitor (Verified Allergy, Unknown, 07/23/18) amlodipine besylate (Verified Allergy, Unknown, 07/23/18) benazepril HCl (Verified Allergy, Unknown, 07/23/18) aspirin (Verified Adverse Reaction, Mild, Nausea, 07/23/18) codeine (Verified Adverse Reaction, Mild, Nausea, 07/23/18) tramadol (Verified Adverse Reaction, Mild, N/V, 07/23/18) Home Medications Acetaminophen (Tylenol Extra Strength) 500 Mg Tablet, 1,000 MG PO Q8H PRN for PAIN-MODERATE, (Reported) Albuterol Sulfate (Proair Hfa) 1 Puff Puff, 2 PUFF IH Q4H PRN for WHEEZING, ( Reported) 1 PUFF = 90 MCG Albuterol/Ipratropium (Combivent Respimat Inhal [place]) 4 Gm Aero, 2 PUFF IH QID, (Reported) Amlodipine Besylate (Amlodipine Besylate) 5 Mg Tablet, 5 MG PO DAILY, (Reported) Atorvastatin Calcium (Atorvastatin Calcium) 40 Mg Tablet, 40 MG PO HS, (Reported ) Budesonide/Formoterol Fumarate (Symbicort 80-4.5 Mcg Inhaler) 10.2 Gm Hfa.aer.ad , 2 PUFF IH BID, (Reported) Cetirizine HCl (Cetirizine HCl) 10 Mg Tablet, 10 MG PO DAILY, (Reported) Cyclobenzaprine HCl (Cyclobenzaprine HCl) 10 Mg Tablet, 10 MG PO TID PRN for MUSCLE SPASMS, (Reported) Fluoxetine HCl (Fluoxetine HCl) 40 Mg Capsule, 40 MG PO DAILY, (Reported) Gabapentin (Gabapentin) 300 Mg Capsule, 600 MG PO TID, (Reported) take 2 (300mg) tabs Levothyroxine Sodium (Levothyroxine Sodium) 50 Mcg Tablet, 50 MCG PO DAILY, ( Reported) Metformin HCl (Metformin HCl) 500 Mg Tablet, 500 MG PO BID, (Reported) Metoprolol Tartrate (Metoprolol Tartrate) 25 Mg Tablet, 25 MG PO BID, (Reported) Montelukast Sodium (Montelukast Sodium) 10 Mg Tablet, 10 MG PO 1700, (Reported) Naproxen (Naproxen) 500 Mg Tablet, 500 MG PO Q12H PRN for PAIN-MILD TO MODERATE, (Reported) Pantoprazole Sodium (Protonix) 40 Mg Tablet.dr, 40 MG PO DAILY, (Reported) Trazodone HCl (Trazodone HCl) 100 Mg Tablet, 100 MG PO HS, (Reported) Umeclidinium Brm/Vilanterol Tr (Anoro Ellipta 62.5-25 Mcg INH) 1 Each Blst.w.dev , 1 PUFF IH BID, (Reported) MIF-Ofojpg-Rhijkb Hx Patient Social History Alcohol Use: Denies Use Recreational Drug Use: No Smoking Status: Former Smoker Type Used: Cigarettes Recent Foreign Travel: No Contact w/other who traveled: No Recent Infectious Disease Expo: No Recent Hopitalizations: No Physical Abuse Screen: No Sexual Abuse: No (as child) Immunizations Up To Date Tetanus Booster (TDap): Less than 5yrs Date of Pneumonia Vaccine: Jul 10, 2011 Date of Influenza Vaccine: Aug 20, 2018 Family Medical History Significant Family History: No Pertinent Family Hx Family History: Arthritis Diabetes mellitus Hypertension Physical Exam Vital Signs Vital Signs - First Documented 11/26/18 11/26/18 11/26/18 14:47 16:34 19:16 Temp 97.5 Pulse 96 Resp 18 B/P (MAP) 126/87 (100) Pulse Ox 96 O2 Flow Rate 2.00 Capillary Refill : Less Than 3 Seconds Height, Weight, BMI Height: 5'7.00" Weight: 182lbs. 4.0oz. [id number]; 28.5 BMI Method:Estimated General Appearance: No Apparent Distress, Chronically ill HEENT: PERRL/EOMI Neck: Non Tender, Supple Respiratory: Normal Breath Sounds, No Accessory Muscle Use, No Respiratory Distress Cardiovascular: Regular Rate, Rhythm, Tachycardia Gastrointestinal: Non Tender, Soft Extremity: Non Tender, No Calf Tenderness, Other (right lower ext BKA, wound covered with dressing) Neurologic/Psychiatric: Alert, Oriented x3 Data Review Labs Laboratory Tests 11/29/18 08:25 Laboratory Tests 11/26/18 15:25: Urine Protein 3+H, Urine Nitrite POSITIVEH, Urine Bilirubin 1+H, Urine Leukocyte Esterase 3+H, Urine RBC (Auto) 2+H, Urine WBC 25-50H, Urine Bacteria LARGEH, Urine Mucus SMALLH 11/27/18 05:13: Red Blood Count 3.97L, Hemoglobin 8.7L, Hematocrit 30L, Mean Corpuscular Volume 76L, Mean Corpuscular Hemoglobin 22L, Mean Corpuscular Hemoglobin Concent 29L, Red Cell Distribution Width 18.0H, Mean Platelet Volume 11.1H, Neutrophils (%) ( Auto) 88H, Lymphocytes (%) (Auto) 5L, Neutrophils # (Auto) 9.0H, Lymphocytes # ( Auto) 0.5L, Chloride Level 114H, Carbon Dioxide Level 15L, Blood Urea Nitrogen 19H, Creatinine 0.54L, Glucose Level 106H, Calcium Level 8.0L 11/27/18 10:57: Glucometer 129H 11/27/18 12:20: 11/27/18 14:31: Glucometer 154H 11/27/18 19:24: 11/28/18 10:32: 11/28/18 14:27: 11/28/18 23:06: 11/29/18 05:13: 11/29/18 08:25: White Blood Count 2.1L, Red Blood Count 3.41L, Hemoglobin 7.3L, Hematocrit 26L, Mean Corpuscular Volume 77L, Mean Corpuscular Hemoglobin 21L, Mean Corpuscular Hemoglobin Concent 28L, Red Cell Distribution Width 18.2H, Mean Platelet Volume 11.2H, Monocytes (%) (Auto) 13H, Neutrophils # (Auto) 1.0L, Lymphocytes # (Auto ) 0.9L, Potassium Level 3.2L, Chloride Level 119H, Carbon Dioxide Level 14L, Creatinine 0.53L, Calcium Level 7.3L, Aspartate Amino Transf (AST/SGOT) 42H, Total Protein 5.0L, Albumin 2.5L 11/29/18 10:28: Impression & Plan Impression & Plan IMP: 1. Nausea, vomiting and diarrhea, most likely due to viral etiology 2. Chronic myelitis of right lower ext s/p BKA 07/2018, wound slowly healing. She needed 3 units of RBC transfusion when she had her surgery. 3. Microcytic anemia, Hb 7.3 and MCV 76. Normal Plt. elevated WBC on admission, suggesting chronic illness and iron deficient related anemia. 4. COPD, home O2 dependent. 5. Leukopenia, most likely viral effect. Plan: 1. I would transfuse 2 units of RBC for her current situation of COPD and chronic infection as well as GI symptoms. This will accelerate her recovery and also give her IV iron. She will not be a good candidate for IV iron at this point due to her infection and suppressed bone marrow due to infection. 2. We may be able to try oral iron later when she recovers from her GI symptoms 3. When you are ready to discharge patient, please set up a f/u with me in 3-4 weeks. Thank you. ZAHRA CERVANTES MD Nov 29, 2018 14:49
--- NOTE | 2018-11-29 15:17 | NUR ---
Pastoral Care Visit.
[2018-11-29] MEDS: cefTRIAXone 1 GM/NS 50 ML IVPB IV SCH ×2 (17:21)
[2018-11-29] MEDS: MONTELUKAST 10 MG (SINGULAIR) TAB PO SCH (17:21)
[2018-11-29] MEDS: ACETAMINOPHEN 325 MG TABLET PO PRN ×2 (17:21→22:38)
--- NOTE | 2018-11-29 20:10 | NUR ---
this rn spoke with dr. davis on the phone to clarify the nursing communication orders-dr. davis did agree to wanting 2 units prbc to be administered, but Tylenol, and Benadryl to be given prior to prbc
[2018-11-29] MEDS ORDERED: diphenhydrAMINE 25 MG TAB (BENADRYL) PO ONE ×2 (20:15→22:32)
[2018-11-29] MEDS: traZODone 100 MG (DESYREL) TAB PO SCH (21:55)
[2018-11-30] VITALS (7 sets, daily range): BP systolic 150–182; BP diastolic 70–80
[2018-11-30] MEDS: NS IV 1000 ML 1,000 ML IV SCH ×3 (02:06→16:38)
[2018-11-30] MEDS: ACETAMINOPHEN 325 MG TABLET PO PRN ×2 (04:24→08:32)
[2018-11-30] MEDS: CHOLESTYRAMINE 4 GM (QUESTRAN LITE, PREVALITE) PKT PO SCH ×4 (06:24→21:58)
[2018-11-30 07:18] LABS: BASOPHILS % (AUTO) 1 % (0-10); EOSINOPHILS # (AUTO) 0.1 10^3/uL (0.0-0.3); EOSINOPHILS % (AUTO) 3 % (0-10); HEMATOCRIT 33 % (35-52); HEMOGLOBIN 9.9 G/DL (11.5-16.0); LYMPHOCYTES # (AUTO) 1.3 X 10^3 (1.0-4.0); LYMPHOCYTES % (AUTO) 36 % (12-44); MEAN CORPUSCULAR HEMOGLOBIN 23 PG (25-34); MEAN CORPUSCULAR HGB CONC 30 G/DL (32-36); MEAN CORPUSCULAR VOLUME 77 FL (80-99); MEAN PLATELET VOLUME 11.2 FL (7.4-10.4); MONOCYTES # (AUTO) 0.5 X 10^3 (0.0-1.0); MONOCYTES % (AUTO) 14 % (0-12); NEUTROPHILS # (AUTO) 1.6 X 10^3 (1.8-7.8); NEUTROPHILS % (AUTO) 45 % (42-75); PLATELET COUNT 164 10^3/uL (130-400); RED BLOOD COUNT 4.27 10^6/uL (4.35-5.85); RED CELL DISTRIBUTION WIDTH 17.2 % (10.0-14.5); WHITE BLOOD COUNT 3.5 10^3/uL (4.3-11.0)
[2018-11-30] MEDS: RT-ALBUTEROL/IPRATROPIUM 3 ML (DUONEB) VIAL INH SCH (07:26)
[2018-11-30] MEDS: ADVAIR HFA 45/21 MCG INHALER 8 GM IH SCH (07:26)
[2018-11-30 07:38] LABS: ALANINE AMINOTRANSFERASE 19 U/L (0-55); ALBUMIN 2.7 GM/DL (3.2-4.5); ALKALINE PHOSPHATASE 56 U/L (40-136); BILIRUBIN,TOTAL 0.4 MG/DL (0.1-1.0); BUN/CREATININE RATIO 9; CALCIUM 7.3 MG/DL (8.5-10.1); CARBON DIOXIDE 15 MMOL/L (21-32); CHLORIDE 118 MMOL/L (98-107); CREATININE SERUM 0.53 MG/DL (0.60-1.30); GFR ESTIMATED > 60; GLUCOSE 96 MG/DL (70-105); POTASSIUM 3.8 MMOL/L (3.6-5.0); SODIUM 142 MMOL/L (135-145); TOTAL PROTEIN 5.3 GM/DL (6.4-8.2)
[2018-11-30] MEDS: LORATADINE (CLARITIN) 10 MG TAB PO SCH (08:32)
[2018-11-30] MEDS: amLODIPine 5 MG (NORVASC) TAB PO SCH (08:32)
[2018-11-30] MEDS: PANTOPRAZOLE 40 MG (PROTONIX) TAB PO SCH (08:32)
[2018-11-30] MEDS: GABAPENTIN 300 MG (NEURONTIN) CAP PO SCH ×3 (08:32→20:25)
[2018-11-30] MEDS: meTOprolol TARTRATE 25 MG (LOPRESSOR) TABLET PO SCH ×2 (08:33→20:25)
[2018-11-30] MEDS: LEVOTHYROXINE 50 MCG (LEVOTHROID) TAB PO SCH (08:33)
[2018-11-30] MEDS: CYCLOBENZAPRINE 10 MG (FLEXERIL) TAB PO SCH ×3 (08:33→20:25)
[2018-11-30] MEDS: FLUoxetine HCL 20 MG (PROzac) CAP PO SCH (08:33)
--- NOTE | 2018-11-30 12:19 | Progress Note-Hospitalist ---
Subjective HPI/CC On Admission Date Seen by Provider: Nov 30, 2018 Time Seen by Provider: 10:00 Subjective/Events-last exam Patient doing better since receiving blood transfusions yesterday Checked meds and labs Appreciate hematology consultation Has a headache and has for the past 4 days so we'll do 1 dose of hydrocodone Likely will discharge tomorrow Diarrhea continues but C. difficile was negative 2 stool leukocytes still pending UTI managed with Rocephin Review of Systems General: Fatigue Focused Exam Lactate Level Objective Exam Vital Signs Vital Signs Date Time Temp Pulse Resp B/P (MAP) Pulse Ox O2 Delivery O2 Flow Rate FiO2 11/30/18 08:57 97.7 64 20 150/72 (98) 98 Nasal Cannula 1.00 11/29/18 07:09 24 Capillary Refill : Less Than 3 Seconds General Appearance: No Apparent Distress, WD/WN, Chronically ill Respiratory: Chest Non Tender, Normal Breath Sounds, No Accessory Muscle Use, No Respiratory Distress, Wheezing Cardiovascular: Regular Rate, Rhythm, No Edema, No Gallop, No JVD, No Murmur, Normal Peripheral Pulses Neurologic/Psychiatric: Alert, Oriented x3, No Motor/Sensory Deficits, Normal Mood/Affect Results/Procedures Lab Laboratory Tests 11/30/18 07:05 Patient resulted labs reviewed. Assessment/Plan Assessment and Plan Assess & Plan/Chief Complaint Assessment per Dr Boudreaux: 1. Gastroenteritis, likely viral - pt admitted for medical floor 11/26/18 - supportive care with IVF, antiemetics - continues to have n/v and diarrhea - C. diff neg - checking stool leukocytes 2. Dehydration - improved with IVF 3. UTI - asymptomatic but evidence of UTI on UA - started on Rocephin in the ER - blood and urine cultures pending 4. Sepsis - after admission patient met criteria of sepsis due to developing fever of 101 , tachycardia - LA in the 1.99; will repeat 5. Hypertension - home BP meds restarted this am - elevated BP likely exacerbated by n/v 6. chronic respiratory failure with hypoxia secondary to COPD, requiring home O2 - continued on home O2 of 2L, not symptomatic 7. Neutropenia and anemia consulting hematology Plan: Maintain Questran Await stool leukocytes Monitor labs Appreciate hematology Hopefully discharge soon Diarrhea persists Diagnosis/Problems Diagnosis/Problems (1) Diarrhea Status: Acute Qualifiers: Diarrhea type: presumed infectious Qualified Codes: R19.7 - Diarrhea, unspecified (2) Sepsis Status: Resolved Qualifiers: Sepsis type: sepsis due to unspecified organism Qualified Codes: A41.9 - Sepsis, unspecified organism Resolution Date/Time: 11/30/18 @ 13:24 (3) Anemia Status: Chronic Qualifiers: Anemia type: unspecified type Qualified Codes: D64.9 - Anemia, unspecified (4) Neutropenia Status: Acute Qualifiers: Neutropenia type: unspecified Qualified Codes: D70.9 - Neutropenia, unspecified (5) Urinary tract infection Status: Acute Qualifiers: Urinary tract infection type: acute cystitis Hematuria presence: without hematuria Qualified Codes: N30.00 - Acute cystitis without hematuria (6) Diabetes mellitus Status: Chronic Qualifiers: Diabetes mellitus type: type 2 Diabetes mellitus manager intermediate insulin use: with custodial use Diabetes mellitus complication status: with circulatory complication Diabetes mellitus complication detail: with other circulatory complications Qualified Codes: E11.59 - Type 2 diabetes mellitus with other circulatory complications; Z79.4 - [facility]CI (current) use of insulin (7) CAD (coronary artery disease) Status: Chronic Qualifiers: [place] vs. transplanted heart: [place] heart (8) Blood in stool Status: Acute (9) Tobacco use Status: Acute (10) HTN (hypertension) Status: Chronic Qualifiers: Hypertension type: essential hypertension Qualified Codes: I10 - Essential (primary) hypertension Clinical Quality Measures DVT/VTE Risk/Contraindication: Risk Factor Score Per Nursin RFS Level Per Nursing on Admit: 2=Moderate ANALY BAPTISTE DO Nov 30, 2018 12:19
[2018-11-30] MEDS ORDERED: HYDROcodone/APAP 5 MG/325 MG (LORTAB) TAB PO NR (12:45)
[2018-11-30] MEDS: MONTELUKAST 10 MG (SINGULAIR) TAB PO SCH (16:38)
[2018-11-30] MEDS: cefTRIAXone 1 GM/NS 50 ML IVPB IV SCH ×2 (16:38)
--- NOTE | 2018-11-30 17:40 | NUR ---
Dr Rincon instructed nurse to change dressing to right stump with same dressings as at home, patient instructed she uses silver dressing at home, stump incision cleaned with normal saline, silver dressing, 4x4 and transparent dressing applied, wound bed pink, julianna well.
[2018-11-30] MEDS: traZODone 100 MG (DESYREL) TAB PO SCH (20:25)
[2018-12-01 00:57] VITALS: BP 151/69
[2018-12-01] MEDS: NS IV 1000 ML 1,000 ML IV SCH ×2 (01:06→09:00)
[2018-12-01] MEDS: CHOLESTYRAMINE 4 GM (QUESTRAN LITE, PREVALITE) PKT PO SCH (05:43)
[2018-12-01 08:00] VITALS: BP 179/83
[2018-12-01] MEDS: amLODIPine 5 MG (NORVASC) TAB PO SCH (08:59)
[2018-12-01] MEDS: LORATADINE (CLARITIN) 10 MG TAB PO SCH (08:59)
[2018-12-01] MEDS: meTOprolol TARTRATE 25 MG (LOPRESSOR) TABLET PO SCH (08:59)
[2018-12-01] MEDS: LEVOTHYROXINE 50 MCG (LEVOTHROID) TAB PO SCH (08:59)
[2018-12-01] MEDS: FLUoxetine HCL 20 MG (PROzac) CAP PO SCH (08:59)
[2018-12-01] MEDS: CYCLOBENZAPRINE 10 MG (FLEXERIL) TAB PO SCH (08:59)
[2018-12-01] MEDS: GABAPENTIN 300 MG (NEURONTIN) CAP PO SCH (08:59)
[2018-12-01] MEDS: PANTOPRAZOLE 40 MG (PROTONIX) TAB PO SCH (08:59)
[2018-12-01] MEDS ORDERED: CHOL4PAC3 PO (09:05)
[2018-12-01] MEDS: RT-ALBUTEROL/IPRATROPIUM 3 ML (DUONEB) VIAL INH SCH ×2 (09:05→09:06)
[2018-12-01] MEDS: ADVAIR HFA 45/21 MCG INHALER 8 GM IH SCH ×2 (09:05→09:06)
--- NOTE | 2018-12-01 09:07 | Discharge Summary-Hospitalist ---
Diagnosis/Chief Complaint Date of Admission Nov 26, 2018 at 15:58 Date of Discharge Discharge Date: Dec 01, 2018 Discharge Diagnosis (1) Diarrhea Status: Resolved (2) Sepsis Status: Resolved (3) Anemia Status: Chronic (4) Neutropenia Status: Acute (5) Urinary tract infection Status: Resolved (6) Diabetes mellitus Status: Chronic (7) CAD (coronary artery disease) Status: Chronic (8) Blood in stool Status: Resolved (9) Tobacco use Status: Acute (10) HTN (hypertension) Status: Chronic (11) Transfusion of blood during current hospitalization Status: Acute Discharge Summary Discharge Physical Exam Allergies: Coded Allergies: Penicillins (Verified Allergy, Mild, Hives, 07/23/18) Piaajdp-Idi-Phv Reductase Inhibitor (Verified Allergy, Unknown, 07/23/18) amlodipine besylate (Verified Allergy, Unknown, 07/23/18) benazepril HCl (Verified Allergy, Unknown, 07/23/18) aspirin (Verified Adverse Reaction, Mild, Nausea, 07/23/18) codeine (Verified Adverse Reaction, Mild, Nausea, 07/23/18) tramadol (Verified Adverse Reaction, Mild, N/V, 07/23/18) Vitals & I&Os Vital Signs Date Time Temp Pulse Resp B/P (MAP) Pulse Ox O2 Delivery O2 Flow Rate FiO2 12/01/18 09:08 Nasal Cannula 1.00 12/01/18 08:00 98.2 69 20 179/83 (115) 96 11/29/18 07:09 24 General Appearance: No Apparent Distress, WD/WN, Chronically ill Cardiovascular: Regular Rate, Rhythm, No Edema, No Gallop, No JVD, No Murmur, Normal Peripheral Pulses Gastrointestinal: Normal Bowel Sounds, No Organomegaly, No Pulsatile Mass, Non Tender, Soft Neurologic/Psychiatric: Alert, Oriented x3, No Motor/Sensory Deficits, Normal Mood/Affect Hospital Course Hospital course: Patient had a lengthy hospital course due to severe diarrhea and sepsis and UTI. Patient maintained on Rocephin and IDDM culture and sensitivity showed complete treatment while hospitalized. All stool studies were negative including C. difficile 2 and patient overall had really good results with Questran 4 times a day. Patient denied any significant pain during hospital course. Hematology was consulted patient was given 2 units of packed red blood cell transfusion during hospital stay due to hemoglobin low from chronic illness and acute blood loss due to recent amputation. Smoking cessation counseled nebulizer treatments maintained and she was ready for discharge with close follow-up a Replaced By [facility]. Labs (last 24 hrs) Laboratory Tests 11/30/18 12:07: Glucometer 83 11/30/18 12:15: Stool Occult Blood Immunoassay POSITIVEH 11/30/18 14:29: Glucometer 97 11/30/18 19:19: Glucometer 103 12/01/18 05:40: Glucometer 90 12/01/18 10:47: Glucometer 101 12/01/18 10:57: Glucometer 174H Microbiology 11/26/18 Blood Culture - Preliminary, Resulted No growth 11/30/18 C. difficile GDH Antigen & Toxins - Final, Complete 11/26/18 Urine Culture - Final, Complete Escherichia coli Patient resulted labs reviewed. Pending Labs Laboratory Tests 12/01/18 05:40: Glucometer 90 12/01/18 10:47: Glucometer 101 12/01/18 10:57: Glucometer 174 Discussion & Recommendations Discharge Planning: <30 minutes discharge planning Discharge Home Medications: Active Scripts Active Prevalite Packet (Cholestyramine/Aspartame) 4 Gm Powd.pack 4 Gm PO 0500,1400, 1700,2200 Reported Tylenol Extra Strength (Acetaminophen) 500 Mg Tablet 1,000 Mg PO Q8H PRN Cyclobenzaprine HCl 10 Mg Tablet 10 Mg PO TID PRN Anoro Ellipta 62.5-25 Mcg INH (Umeclidinium Brm/Vilanterol Tr) 1 Each Blst.w.dev 1 Puff IH BID Amlodipine Besylate 5 Mg Tablet 5 Mg PO DAILY Cetirizine HCl 10 Mg Tablet 10 Mg PO DAILY Montelukast Sodium 10 Mg Tablet 10 Mg PO 1700 Fluoxetine HCl 40 Mg Capsule 40 Mg PO DAILY Trazodone HCl 100 Mg Tablet 100 Mg PO HS Metoprolol Tartrate 25 Mg Tablet 25 Mg PO BID Protonix (Pantoprazole Sodium) 40 Mg Tablet.dr 40 Mg PO DAILY Combivent Respimat Inhal [place] (Albuterol/Ipratropium) 4 Gm Aero 2 Puff IH QID Levothyroxine Sodium 50 Mcg Tablet 50 Mcg PO DAILY Atorvastatin Calcium 40 Mg Tablet 40 Mg PO HS Metformin HCl 500 Mg Tablet 500 Mg PO BID Symbicort 80-4.5 Mcg Inhaler (Budesonide/Formoterol Fumarate) 10.2 Gm Hfa.aer.ad 2 Puff IH BID Proair Hfa (Albuterol Sulfate) 1 Puff Puff 2 Puff IH Q4H PRN 1 PUFF = 90 MCG Gabapentin 300 Mg Capsule 600 Mg PO TID take 2 (300mg) tabs Instructions to patient/family Please see electronic discharge instructions given to patient. Clinical Quality Measures DVT/VTE Risk/Contraindication: Risk Factor Score Per Nursin RFS Level Per Nursing on Admit: 2=Moderate Problem Qualifiers (1) Diarrhea: Diarrhea type: presumed infectious Qualified Codes: R19.7 - Diarrhea, unspecified (2) Sepsis: Sepsis type: sepsis due to unspecified organism Qualified Codes: A41.9 - Sepsis, unspecified organism (3) Anemia: Anemia type: unspecified type Qualified Codes: D64.9 - Anemia, unspecified (4) Neutropenia: Neutropenia type: unspecified Qualified Codes: D70.9 - Neutropenia, unspecified (5) Urinary tract infection: Urinary tract infection type: acute cystitis Hematuria presence: without hematuria Qualified Codes: N30.00 - Acute cystitis without hematuria (6) Diabetes mellitus: Diabetes mellitus type: type 2 Diabetes mellitus residential insulin use: with dental internship use Diabetes mellitus complication status: with circulatory complication Diabetes mellitus complication detail: with other circulatory complications Qualified Codes: E11.59 - Type 2 diabetes mellitus with other circulatory complications; Z79.4 - air twist operator (current) use of insulin (7) CAD (coronary artery disease): [place] vs. transplanted heart: [place] heart (8) HTN (hypertension): Hypertension type: essential hypertension Qualified Codes: I10 - Essential ( primary) hypertension ANALY BAPTISTE DO Dec 01, 2018 09:07
--- NOTE | 2018-12-01 14:36 | NUR ---
MAULIK ELIZALDE demonstrates understanding of discharge instructions and accurately returns instructions upon questioning. Copy of Post-Discharge Instructions and Medication Discharge Instructions given to patient. MAULIK ELIZALDE is able to manage continuing needs after discharge with help of family. Patients belongings returned to patient. Skin dry and intact; no breakdown noted. Patient discharged from [facility]- on 12/01/18 at 1205. MAULIK ELIZALDE left floor via wheel chair, accompanied by staff and family.
== END 2018-12-01 12:05 | disposition home or self-care (01) | DRG 391 ==
LOC: EDUNIT# 14:29 → ER 14:30 → 4TH 15:58
PROVIDERS: ADMIT Family Medicine; ATTEND Family Medicine
DX: A08.4 Viral intestinal infection, unspecified (principal); E86.0 Dehydration; N39.0 Urinary tract infection, site not specified; B96.20 Unspecified Escherichia coli [E. coli] as the cause of diseases classified elsewhere; A41.9 Sepsis, unspecified organism; J96.11 Chronic respiratory failure with hypoxia; J43.9 Emphysema, unspecified; E11.59 Type 2 diabetes mellitus with other circulatory complications; D62 Acute posthemorrhagic anemia; D63.8 Anemia in other chronic diseases classified elsewhere; I10 Essential (primary) hypertension; I25.10 Atherosclerotic heart disease of native coronary artery without angina pectoris; E78.00 Pure hypercholesterolemia, unspecified; F41.9 Anxiety disorder, unspecified; F32.9 Major depressive disorder, single episode, unspecified; Z99.81 Dependence on supplemental oxygen; Z87.891 Personal history of nicotine dependence; Z95.5 Presence of coronary angioplasty implant and graft; Z89.511 Acquired absence of right leg below knee; Z88.0 Allergy status to penicillin; Z88.8 Allergy status to other drugs, medicaments and biological substances; Z88.6 Allergy status to analgesic agent; Z88.5 Allergy status to narcotic agent; D70.9 Neutropenia, unspecified; Z79.84 Long term (current) use of oral hypoglycemic drugs
CPT/HCPCS: 36415; 80048; 80053; 81000; 82274; 82962; 83540; 83605; 85007; 85025; 85027; 86850; 86900; 86901; 86920; 87015; 87040; 87045; 87046; 87077; 87088; 87186; 87324; 87449; 87899; 94640; 94760; 96361; 96365

== ENCOUNTER → 2019-05-26 | Outpatient (CLI) | payer MEDICAID ==
[~2019-05-26] MED LIST changes: +ACET-2267 PO; +ACET500C4 PO; -AMLO5TAB7 PO; +AMLO5TAB9 PO; +AMLODIPINE BESYLATE 5 MG TAB; +ATORVASTATIN 40 MG TABLET; +CETI10TA17 PO; +CETI10TA23 PO; +CETIRIZINE HCL 10 MG TABLET; +CHOL4PAC3 PO; +CYCLOBENZAPRINE 10 MG TABLET; +FLUO40CA PO; +FLUOXETINE HCL 40 MG CAPSULE; +GABAPENTIN 300 MG CAPSULE; -HYDR-3454 PO; +HYDR-3455 PO; +LEVOTHYROXINE 50 MCG TABLET; +METFORMIN HCL 500 MG TABLET; +METOPROLOL TARTRATE 25 MG TAB; +MONT10TA24 PO; +MONTELUKAST SOD 10 MG TABLET; +NAPR-915 PO; +NAPROXEN 500 MG TABLET; +PANTOPRAZOLE SOD DR 40 MG TAB; +TRAZ-190 PO; +TRAZODONE 100 MG TABLET; +UMEC1BLS IH
[2019-05-26 11:18] LABS: ABG BASE EXCESS 1.2 MMOL/L (-2.5-2.5); ABG OXYGEN SATURATION 94 % (94-100); ABG PCO2 46 MMHG (35-45); ABG PH 7.37 (7.37-7.43); ABG PO2 60 MMHG (79-93); ABG TCO2 27.5 MMOL/L (21.0-31.0)
[2019-05-26 11:20] LABS: ALLENS TEST POSITIVE; PATIENT TEMP 97.7; VENTILATOR NO
== END ==
LOC: LAB 10:45
PROVIDERS: ATTEND Nurse Practitioner Family
DX: J43.8 Other emphysema (principal); G47.10 Hypersomnia, unspecified; Z72.0 Tobacco use; G47.50 Parasomnia, unspecified; R91.8 Other nonspecific abnormal finding of lung field; R06.02 Shortness of breath; G47.36 Sleep related hypoventilation in conditions classified elsewhere; R06.00 Dyspnea, unspecified
CPT/HCPCS: 36600; 82805

== ENCOUNTER 2019-06-14 10:53 | Inpatient (IN) | payer MEDICAID ==
[2019-06-14] VITALS (15 sets, daily range): BP systolic 121–165; BP diastolic 54–89
[~2019-06-14] VITALS: Ht 170.2 cm; Wt 91.2 kg
[2019-06-14] MEDS ORDERED: LACTATED RINGERS 1,000 ML IV ONE (10:58)
--- OUTSIDE RECORDS SUMMARY | 2019-06-14 10:59 | XMS REPORT | Clinical Summary ---
Author Author [facility] Organization [facility] Address Unknown Phone Unavailable Care Team Providers Care Fashion Consultant Selling Name Role Phone Osvaldo Palafox DO Unavailable Hermila Durbin MD Unavailable Rishi Cartwright MD Unavailable Donell Haque PA-C Unavailable Lizet Parsons RN Unavailable Unavailable Kristofer Dowling MD Unavailable Unavailable Harvinder Jj MD PCP Slade Merino DO 4 Source Comments Some departments are not documenting in the electronic medical record. If you d o not see the information that you expected, contact Release of Information in [facility] Health Information Management department at [phone] for further assistan ce in locating additional records.[facility] Allergies Comments Active Allergy Reactions Severity Noted [...] nostril as directed daily as needed. Active metoprolol tartrate Take 25 mg by 5 (LOPRESSOR) 25 mg tablet mouth twice 8 daily. Active montelukast (SINGULAIR) Take 10 mg by 0 10 mg tablet mouth at 8 bedtime daily. Active naproxen (NAPROSYN) 500 Take 500 mg 0 mg tablet by mouth 8 twice daily [...] capsule by 8 mouth twice daily. Active sodium hypochlorite Apply 120 mL 0 (DAKIN'S SOLUTION) 0.25 % topically to 8 topical solution affected area daily. Active mupirocin (BACTROBAN) 2 % APPLY TO 22 g 0 topical ointment AFFECTED AREA 8 THREE TIMES DAILY Active trimethoprim/sulfamethoxa Take one 2 tablet 0 zole (BACTRIM DS) 160/800 tablet by 9 mg tablet mouth twice daily. Active oxybutynin XL (DITROPAN Take one 90 tablet 3 XL) 15 mg tablet tablet by 9 mouth daily. Do not cut/ crush/ chew Active trospium(+) (SANCTURA) 20 Take one 60 tablet 3 mg tablet tablet by 9 mouth twice daily before meals. Active gabapentin (NEURONTIN) Take two 90 tablet 6 600 mg tablet tablets by 9 mouth twice daily. Active mirabegron(+) ER Take one 30 tablet 3 (MYRBETRIQ ER) 25 mg tablet by 9 tablet mouth daily. Active fesoterodine ER(+) Take one 90 tablet 3 (TOVIAZ) 8 mg tablet tablet by 9 mouth daily. Do not cut/ crush/ chew 06/09/2019 Discontinued MYRBETRIQ 50 mg tablet Take one 90 tablet 1 tablet by 9 mouth daily. 06/10/2019 nitrofurantoin Take one 28 capsule 0 macrocrystal capsule by 9 (MACRODANTIN) 50 mg mouth every 6 capsule hours for 7 days. Take with food. 06/13/2019 nitrofurantoin Take one 14 capsule 0 monohyd/m-cryst capsule by 9 (MACROBID) 100 mg capsule mouth every 12 hours for 7 days. Take with food. 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 Carlton in [place] for vaginal pain Gross hematuria 10/24/2015 Overview: [...] improvement yet continued non-compliance. Botox 200u (03/04/2016). 200U Botox injection (03/17/17). Decreased pad usage to 2-3 per day. 12/31/18: Pad usage back up to 8 per day. L ast Assessment & Plan: 53 year old female with PMH of mixed incontinence managed with botox and oxybutynin 10mg XL with return of symptoms Plan: - Schedule for botox 02/08/19 200U - Oxybutynin 10mg XL - Urine culture today - Empiric bactrim started Chronic female pelvic pain Overview: Tried pelvic floor PT. Tried oral Elmiron --> no improvement. Tried Atarax --> no improvement. Tried Levsin --> no improvement. Tried Gabapentin 600 mg TID. Trial Elmiron bladder instillations x 6 (02/06/2016 -- 05/09/2016) --> no improvement. L ast Assessment & Plan: See IC A&P note. OAB (overactive bladder) Encounters Care Team Description Date Type Specialty Rishi Cartwright MD Urge incontinence (Primary Dx); Urinary urgency; Urinary frequency 06/09/2019 Orders Only Urology Rishi Cartwright MD Medication Follow-up 06/09/2019 Telephone Urology Rishi Cartwright MD 06/08/2019 Documentation Urology Rishi Cartwright MD Results (Urine culture) 06/06/2019 Telephone Urology Rishi Cartwright MD Acute cystitis without hematuria (Primary Dx); Urge incontinence; Urinary urgency; Urinary frequency 06/03/2019 Office Visit Urology Slade Prasad MD 04/11/2019 Refill Rehabilitation Medicine Slade Prasad MD Pain (right leg pain) 04/08/2019 Telephone Rehabilitation Medicine Pradip Jaramillo MD Referral (referral to physical therapy) 03/23/2019 Telephone Orthopedic Surgery from Last 3 Months Immunizations Name Administration Dates Next Due Flu Vaccine=>6 Months 08/21/2018 Quadrivalent PF Pneumococcal Vaccine 08/21/2018 (23-[place] Adult) Family History Medical History Relation Name Comments Diabetes Father Hypertension Mother Relation Name Status Comments Father Mother Social History Date Tobacco Use Types Packs/Day Years Used Quit: 07/28/2018 Former Smoker Cigarettes 3 30 Smokeless Tobacco: Never Used Comments: decreased to .5ppd since 2013 Drinks/Week oz/Week Comments Alcohol Use No Sex Assigned at Date Recorded Not on file Industry Job Start Date Occupation Not on file Not on file Not on file Travel End Travel History Travel Start No recent travel history available. Last Filed Vital Signs Reading Time Taken Comments Vital Sign 140/53 06/03/2019 1:10 PM CDT Blood Pressure 66 06/03/2019 1:10 PM CDT Pulse 36.4 C (97.6 F) 03/11/2019 8:33 AM CDT Temperature 16 10/24/2015 3:18 PM [employer]Y [employer]ER Respiratory Rate 95% 03/11/2019 8:33 AM CDT Oxygen Saturation - - Inhaled Oxygen Concentration 82.6 kg (182 lb) 06/03/2019 1:10 PM CDT Weight 170.2 cm (5' 7") 06/03/2019 1:10 PM CDT Height 28.51 06/03/2019 1:10 PM CDT Body Mass Index Plan of Treatment Care Team Description Date Type Specialty Rishi Cartwright MD [address] [facility] [address] [place] [address] [phone] Mixed urge and stress incontinence 08/12/2019 Hospital Encounter Rishi Cartwright MD [address] [facility] [address] [place] [address] [phone] CYSTOURETHROSCOPY WITH INJECTION FOR CHEMODENERVATION OF THE BLADDER (BOTOX 200 UNITS) 08/12/2019 Surgery Health Maintenance Due Date Last Done Comments HEPATITIS C SCREENING 1964 PHYSICAL (COMPREHENSIVE) 1971 EXAM HIV SCREENING 1979 DTAP/TDAP VACCINES (1 - 1982 Tdap) CERVICAL CANCER SCREENING 1994 BREAST CANCER SCREENING 2004 COLORECTAL CANCER 2014 SCREENING SHINGLES RECOMBINANT 2014 VACCINE (1 of 2) INFLUENZA VACCINE 08/30/2019 08/21/2018 Implants Device Identifier Shelf Expiration Date Model / Serial / Lot Implanted Type Area Manufactur er Right Ankle Plate Procedures Comments Procedure Name Priority Date/Time Associated Diagnosis CULTURE-URINE Routine 06/03/2019 Acute cystitis without W/SENSITIVITY 1:50 PM CDT hematuria POC URINE DIPSTICK MANUAL Routine 06/03/2019 Acute cystitis without READ hematuria from Last 3 Months Results * CULTURE-URINE W/SENSITIVITY (06/03/2019 1:50 PM CDT) Battery Name URINE CULTURE [facility] Specimen URINE [facility] Description Special NONE [facility] Requests Culture >100,000 organisms/ml MAIN LAB ESCHERICHIA COLI, ESBL POSITIVE (A) Report Status FINAL [facility] 06/06/2019 Organism ID >100,000 organisms/ml [facility] ESCHERICHIA COLI, ESBL POSITIVE Specimen Urine - Urine, Outpatient Antibiotic Method Susceptibility Organism Ampicillin HARRY (MCG/ML) INTERPRETATION >16 RESISTANT: Resistant >100,000 organisms/ml escherichia coli, esbl positive Amoxicil/Clav Acid HARRY (MCG/ML) INTERPRETATION 16/8 INTERMEDIATE: Intermediate >100,000 organisms/ml escherichia coli, esbl positive Cefazolin HARRY (MCG/ML) INTERPRETATION >16 RESISTANT: Resistant >100,000 organisms/ml escherichia coli, esbl positive Levofloxacin HARRY (MCG/ML) INTERPRETATION >4 RESISTANT: Resistant >100,000 organisms/ml escherichia coli, esbl positive Nitrofurantoin HARRY (MCG/ML) INTERPRETATION <=16 SUSCEPTIBLE: Susceptible >100,000 organisms/ml escherichia coli, esbl positive Gentamicin HARRY (MCG/ML) INTERPRETATION <=2 SUSCEPTIBLE: Susceptible >100,000 organisms/ml escherichia coli, esbl positive Trimethsulfa HARRY (MCG/ML) INTERPRETATION >2/38 RESISTANT: Resistant >100,000 organisms/ml escherichia coli, esbl positive Piperacil/Tazobactam HARRY (MCG/ML) INTERPRETATION 32/4 INTERMEDIATE: Intermediate >100,000 organisms/ml escherichia coli, esbl positive Tetracycline HARRY (MCG/ML) INTERPRETATION >8 RESISTANT: Resistant >100,000 organisms/ml escherichia coli, esbl positive Cefepime HARRY (MCG/ML) INTERPRETATION >16 RESISTANT: Resistant >100,000 organisms/ml escherichia coli, esbl positive Ertapenem HARRY (MCG/ML) INTERPRETATION <=0.25 SUSCEPTIBLE: Susceptible >100,000 organisms/ml escherichia coli, esbl positive Ceftriaxone HARRY (MCG/ML) INTERPRETATION >32 RESISTANT: Resistant >100,000 organisms/ml escherichia coli, esbl positive Method HARRY (MCG/ML) INTERPRETATION HARRY (MCG/ML) INTERPRETATION >100,000 organisms/ml escherichia coli, esbl positive Performing Organization Address City/State/Zipcode Phone Number [facility] [address] [place] [address] * POC URINE DIPSTICK MANUAL READ (06/03/2019) Urine Glucose neg IN CLINIC POC Urine Bilirubin neg IN CLINIC POC Urine Ketone neg IN CLINIC POC Urine Specific 1.005 IN CLINIC Saxis POC Urine Blood POC neg IN CLINIC Urine PH POC 7.5 IN CLINIC Urine Protein neg IN CLINIC POC Urine 0.2 IN CLINIC Urobilinogen POC Urine Nitrite positive IN CLINIC POC Urine moderate IN CLINIC Leukocytes POC Color,UA yellow IN CLINIC Turbidity,UA clear IN CLINIC Specimen Urine - Urine Performing Organization Address City/State/Zipcode Phone Number IN CLINIC from Last 3 Months Insurance Type Payer Benefit Subscriber ID Effective Phone Address Plan / Dates Group Medicaid [place] [employer] xxxxxxxxxxx 2018-P [facility] Advance Directives Patient Financial Aid Officer Explanation Type Date Recorded Advance 09/08/2014 3:19 PM Directive/DPOA Advance Directive/DPOA Date Inactivated Comments Code Status Date Activated 10/16/2018 7:44 PM Full Code 10/15/2018 8:12 PM Provider has discussed Code Status No, discussion not w/Patient or Family? necessary based on Dx 08/25/2018 8:04 PM Full Code 08/20/2018 10:12 AM Provider has discussed Code Status No, discussion not w/Patient or Family? necessary based on Dx
--- OUTSIDE RECORDS SUMMARY | 2019-06-14 10:59 | XMS REPORT | Encounter Summary ---
Author Author [facility] Organization [facility] Address Unknown Phone Unavailable Care Team Providers Care Tour Conductor Name Role Phone AnaliaonesimoOsvaldo DO Unavailable Hermila Durbin MD Unavailable Rishi Cartwirght MD Unavailable Donell Haque PA-C Unavailable Lizet Parsons RN Unavailable Unavailable Kristofer Dowling MD Unavailable Unavailable Harvinder Jj MD PCP Slade Merino DO 4 Reason for Referral * Radiology Services (Routine) Referred By Contact Referred To Contact Status Reason Specialty Diagnoses / Procedures Rishi Cartwright MD [address] [facility] [address] [place] [address] New Request Radiology Diagnoses Urge incontinence Urinary urgency Urinary frequency P rocedures VIDEO URODYAMIC VOIDING IN RAD Encounter Details Care Team Description Date Type Department Rishi Cartwright MD [address] [facility] [address] [place] [address] Urge incontinence (Primary Dx); Urinary urgency; Urinary frequency 06/09/2019 Orders Only [facility] [address] 2 [place] [address] Social History Date Tobacco Use [...] Travel Start No recent travel history available. documented as of this encounter Functional Status Date [...] the patient have a cognitive impairment: No documented as of this encounter Plan of Treatment Care Team Description Date Type Specialty Rishi Cartwright MD [address] [facility] [address] [place] [address] [phone] Mixed urge and stress incontinence 08/12/2019 Hospital Encounter Rishi Cartwright MD [address] [facility] [address] [place] [address] [phone] CYSTOURETHROSCOPY WITH INJECTION FOR CHEMODENERVATION OF THE BLADDER (BOTOX 200 UNITS) 08/12/2019 Surgery Order Schedule Name Type Priority Associated Diagnoses Expected: 06/09/2019 (Approximate), Expires: 06/09/2020 VIDEO URODYAMIC VOIDING Imaging Routine Urge incontinence IN RAD Urinary urgency Urinary frequency documented as of this encounter Visit Diagnoses Diagnosis Urge incontinence - Primary Urinary urgency Urgency of urination Urinary frequency documented in this encounter
[2019-06-14] MEDS ORDERED: fentaNYL INJECTION 100 MCG/2 ML AMP IVP ONE ×2 (11:00→12:30)
--- OUTSIDE RECORDS SUMMARY | 2019-06-14 11:00 | XMS REPORT | Encounter Summary ---
Author Author [facility] Organization [facility] Address Unknown Phone Unavailable Care Team Providers Care Business Support Associate Name Role Phone Sarbjitmaryanne Osvaldo PRAKASH Unavailable Hermila Durbin MD Unavailable Rishi Cartwright MD Unavailable Donell Haque PA-C Unavailable Lizet Parsons RN Unavailable Unavailable Kristofer Dowling MD Unavailable Unavailable Harvinder Jj MD PCP Slade Merino DO 4 Reason for Visit * Reason Comments Pain right leg pain Encounter Details Care Team Description Date Type Department Slade Prasad MD [address] [facility] [place] [address] Pain (right leg pain) 04/08/2019 Telephone [facility] [address] [address] Social History Date Tobacco Use Types Packs/Day Years Used Quit: 07/28/2018 Former Smoker Cigarettes 3 30 Smokeless Tobacco: Never Used Comments: decreased to .5ppd since 2012 Drinks/Week oz/Week Comments Alcohol Use No Sex [...] impairment: No documented as of this encounter Miscellaneous Notes * Telephone Encounter - Osvaldo Martin RN - 04/08/2019 12:05 PM CDT Received call from patient stating she is having sharp pain "where they cut my l eg off on the right" which travels up to her hip. Patient states she has her leg elevated and has tried tylenol without relief. Patient is allergic to ASA and u nable to take NSAIDS, states topical creams would not be covered by insurance. W ill forward to Dr. Prasad for his thoughts. Patient verbalizes comprehension. documented in this encounter Plan of Treatment Care Team Description Date Type Specialty Rishi Cartwright MD [address] [facility] [address] [place] [address] [phone] Mixed urge and stress incontinence 08/12/2019 Hospital Encounter Rishi Cartwright MD [address] [facility] [address] [place] [address] [phone] CYSTOURETHROSCOPY WITH INJECTION FOR CHEMODENERVATION OF THE BLADDER (BOTOX 200 UNITS) 08/12/2019 Surgery documented as of this encounter Visit Diagnoses Not on filedocumented in this encounter
--- OUTSIDE RECORDS SUMMARY | 2019-06-14 11:00 | XMS REPORT | Encounter Summary ---
Author Author [facility] Organization [facility] Address Unknown Phone Unavailable Care Team Providers Care Manager Exchange Name Role Phone AnaliaOsvaldo echols Unavailable Hermila Durbin MD Unavailable Rishi Cartwright MD Unavailable Donell Haque PA-C Unavailable Lizet Parsons RN Unavailable Unavailable Kristofer Dowling MD Unavailable Unavailable Harvinder Jj MD PCP Slade Merino DO 4 Reason for Visit * Reason Comments Results Urine culture Encounter Details Care Team Description Date Type Department Rishi Cartwright MD [address] [facility] [address] [place] [address] Results (Urine culture) 06/06/2019 Telephone [facility] [address] [place] [address] Social History Date Tobacco Use [...] encounter Miscellaneous Notes * Telephone Encounter - Ruba Yeager RN - 06/06/2019 2:13 PM CDT Called patient, let her know her urine culture was positive for infection and Dr Jessy Cartwright has ordered Macrobid to take one tab by mouth twice daily for 7 days . Verified pharmacy and medication sent in. No questions. * Telephone Encounter - Ruba Yeager RN - 06/06/2019 2:10 PM CDT ----- Message from Rishi Cartwright MD sent at 06/06/2019 8:00 AM CDT ----- Please see urine culture results. Please contact the patient with this informat ion. Recommend Nitrofurantoin 100 mg PO BID x 7 days. documented in this encounter Plan of Treatment Care Team Description Date Type Specialty Rishi Cartwright MD [address] [facility] [address] [place] [address] [phone] Mixed urge and stress incontinence 08/12/2019 Hospital Encounter Rishi Cartwright MD [address] [facility] [address] [place] [address] [phone] CYSTOURETHROSCOPY WITH INJECTION FOR CHEMODENERVATION OF THE BLADDER (BOTOX 200 UNITS) 08/12/2019 Surgery documented as of this encounter Visit Diagnoses Not on filedocumented in this encounter
--- OUTSIDE RECORDS SUMMARY | 2019-06-14 11:00 | XMS REPORT | Encounter Summary ---
Author Author [facility] Organization [facility] Address Unknown Phone Unavailable Care Team Providers Care Pediatric Neuropsychologist Name Role Phone AnaliaOsvaldo echols Unavailable Hermila Durbin MD Unavailable Rishi Cartwright MD Unavailable Donell Haque PA-C Unavailable Lizet Parsons RN Unavailable Unavailable Kristofer Dowling MD Unavailable Unavailable Harvinder Jj MD PCP Slade Merino DO 4 Reason for Visit * Reason Comments Medication Follow-up Encounter Details Care Team Description Date Type Department Rishi Cartwright MD [address] [facility] [address] [place] [address] Medication Follow-up 06/09/2019 Telephone [facility] [address] [place] [address] Social History Date Tobacco Use [...] Telephone Encounter - Ruba Yeager RN - 06/09/2019 3:32 PM CDT Received message back that Myrbetriq was denied. Patient must try Toviaz or Vesi care first. Per Dr. Cartwright, ordered Toviaz 8mg tablets. Called patient and le t her know this information and that medication has been sent to her pharmacy. N o questions. documented in this encounter Plan of Treatment Care Team Description Date Type Specialty Rishi Cartwright MD [address] [facility] [address] [place] [address] [phone] Mixed urge and stress incontinence 08/12/2019 Hospital Encounter Rishi Cartwright MD [address] [facility] [address] [place] [address] [phone] CYSTOURETHROSCOPY WITH INJECTION FOR CHEMODENERVATION OF THE BLADDER (BOTOX 200 UNITS) 08/12/2019 Surgery documented as of this encounter Visit Diagnoses Not on filedocumented in this encounter
--- OUTSIDE RECORDS SUMMARY | 2019-06-14 11:00 | XMS REPORT | Encounter Summary ---
Author Author [facility] Organization [facility] Address Unknown Phone Unavailable Care Team Providers Care Clinical Staff Anesthesiologist Name Role Phone Analiaonesimo Osvaldo PRAKASH Unavailable Hermila Durbin MD Unavailable Rishi Cartwright MD Unavailable Donell Haque PA-C Unavailable Lizet Parsons RN Unavailable Unavailable Kristofer Dowling MD Unavailable Unavailable Harvinder Jj MD PCP Slade Merino DO 4 Reason for Visit * Reason Comments Medication Refill Encounter Details Care Team Description Date Type Department Slade Prasad MD [address] [place] [address] 04/11/2019 Refill [facility] [address] [id number] Social History Date Tobacco Use Types Packs/Day [...] Telephone Encounter - Osvaldo Martin RN - 04/11/2019 9:25 AM CDT Follow-up from phone call regarding pain in stump. Dr. Prasad stated on his r eply to increase patient's Gabapentin to 1200 mg TID. Patient called and informe d, verbalized comprehension. documented in this encounter Plan of Treatment Care Team Description Date Type Specialty Rishi Cartwright MD [address] [facility] [address] [place] [address] [phone] Mixed urge and stress incontinence 08/12/2019 Hospital Encounter Rishi Cartwright MD [address] [facility] [address] [place] [address] [phone] CYSTOURETHROSCOPY WITH INJECTION FOR CHEMODENERVATION OF THE BLADDER (BOTOX 200 UNITS) 08/12/2019 Surgery documented as of this encounter Visit Diagnoses Not on filedocumented in this encounter
--- OUTSIDE RECORDS SUMMARY | 2019-06-14 11:00 | XMS REPORT | Encounter Summary ---
Author Author [facility] Organization [facility] Address Unknown Phone Unavailable Care Team Providers Care Broke Man Name Role Phone Osvaldo Palafox Unavailable Hermila Durbin MD Unavailable Rishi Cartwright MD Unavailable Donell Haque PA-C Unavailable Lizet Parsons RN Unavailable Unavailable Kristofer Dowling MD Unavailable Unavailable Harvinder Jj MD PCP Slade Merino DO 4 Reason for Visit * Reason Comments Medication Refill Encounter Details Care Team Description Date Type Department Hermila Durbin MD [address] [facility] [address] [place] [address] [phone] 02/28/2019 Refill [facility] [address] [place] [phone] Social History Date Tobacco Use Types Packs/Day [...] Date Type Specialty Rishi Cartwright MD [address] [facility] [address] [place] [address] [phone] Mixed urge and stress incontinence 08/12/2019 Hospital Encounter Rishi Cartwright MD [address] [facility] [address] [place] [address] [phone] CYSTOURETHROSCOPY WITH INJECTION FOR CHEMODENERVATION OF THE BLADDER (BOTOX 200 UNITS) 08/12/2019 Surgery documented as of this encounter Visit Diagnoses Not on filedocumented in this encounter
--- OUTSIDE RECORDS SUMMARY | 2019-06-14 11:00 | XMS REPORT | Encounter Summary ---
Author Author [facility] Organization [facility] Address Unknown Phone Unavailable Care Team Providers Care Production Administrative Assistant Name Role Phone Osvaldo Palafox DO Unavailable Hermila Durbin MD Unavailable Rishi Cartwright MD Unavailable oDnell Haque PA-C Unavailable Lizet Parsons RN Unavailable Unavailable Kristofer Dowling MD Unavailable Unavailable Harvinder Jj MD PCP Slade Merino DO 4 Reason for Referral * Consult, Test & Treat (Routine) Referred By Contact Referred To Contact Status Reason Specialty Diagnoses / Procedures Pradip Jaramillo MD [address] [facility] [address] Closed Specialty Services Diagnoses Required Complete below knee amputation of lower extremity, right, sequela (HCC) Reason for Visit * Reason Comments Referral referral to physical therapy Encounter Details Care Team Description Date Type Department Pradip Jaramillo MD [address] [facility] [address] Referral (referral to physical therapy) 03/23/2019 Telephone [facility] [address] [place] [address] Social History Date Tobacco Use [...] encounter Miscellaneous Notes * Telephone Encounter - Estrella Lewis RN - 03/23/2019 3:14 PM CDT Ms. Fonseca reports several falls and would like to attend outpatient PT at [facility] in [place], [place]. Orders faxed to [phone], office [phone]. documented in this encounter Plan of Treatment Care Team Description Date Type Specialty Rishi Cartwright MD [address] [facility] [address] [place] [address] [phone] Mixed urge and stress incontinence 08/12/2019 Hospital Encounter Rishi Cartwright MD [address] [facility] [address] [place] [address] [phone] CYSTOURETHROSCOPY WITH INJECTION FOR CHEMODENERVATION OF THE BLADDER (BOTOX 200 UNITS) 08/12/2019 Surgery Order Schedule Name Type Priority Associated Diagnoses Ordered: 03/23/2019 AMB REFERRAL TO PHYSICAL Outpatient Routine Complete below knee THERAPY Referral amputation of lower extremity, right, sequela (HCC) documented as of this encounter Visit Diagnoses Diagnosis Complete below knee amputation of lower extremity, right, sequela (HCC) - Primary documented in this encounter
--- OUTSIDE RECORDS SUMMARY | 2019-06-14 11:00 | XMS REPORT | Encounter Summary ---
Author Author [facility] Organization [facility] Address Unknown Phone Unavailable Care Team Providers Care Police Shift Commander Name Role Phone AnaliaOsvaldo echols Unavailable Hermila Durbin MD Unavailable Rishi Cartwright MD Unavailable Donell Haque PA-C Unavailable Lizet Parsons RN Unavailable Unavailable Kristofer Dowling MD Unavailable Unavailable Harvinder Jj MD PCP Slade Merino DO 4 Reason for Visit * Reason Comments Urinary Frequency Urinary Incontinence Encounter Details Care Team Description Date Type Department Rishi Cartwright MD [address] [facility] [address] [place] [address] Acute cystitis without hematuria (Primary Dx); Urge incontinence; Urinary urgency; Urinary frequency 06/03/2019 Office Visit [facility] [address] [place] [address] Social History Date Tobacco Use [...] history available. documented as of this encounter Last Filed Vital Signs Reading Time Taken Comments Vital Sign 140/53 06/03/2019 1:10 PM CDT Blood Pressure 66 06/03/2019 1:10 PM CDT Pulse - - Temperature - - Respiratory Rate - - Oxygen Saturation - - Inhaled Oxygen Concentration 82.6 kg (182 lb) 06/03/2019 1:10 PM CDT Weight 170.2 cm (5' 7") 06/03/2019 1:10 PM CDT Height 28.51 06/03/2019 1:10 PM CDT Body Mass Index documented in this encounter Functional Status Date of [...] impairment: No documented as of this encounter Patient Instructions * Patient Instructions* Rishi Cartwright MD - 06/03/2019 1:30 PM CDT Here is a list of options for overactive bladder medications on the market. If necessary, contact your insurance company to determine which one(s) may be the l east expensive. Contact your providers office if you want to switch to a dif ferent medication & the name of the preferred medication(s) as recommended by your insurance company. Overactive Bladder (OAB) Medications Brand Name Generic Name Detrol Tolterodine Detrol LA Tolterodine ER Ditropan Oxybutynin Ditropan XL Oxybutynin ER Enablex Darifenacin Gelnique Oxybutynin topical gel Myrbetriq Mirabegron Oxytrol Oxybutynin transdermal patch Sanctura Trospium Sanctura XR Trospium ER Tolterodine Tolterodine Toviaz Fesoterodine Vesicare Solifenacin About Urodynamics: Urodynamics is a set of tests that measure bladder function (including storage and emptying) allowing physicians to understand and treat pat ients with bladder problems such as urinary leakage (incontinence) or bladder em ptying (voiding). The examination is performed by nurses who have been speciall y trained in urodynamic testing. At the beginning of the test, you will be asked to urinate into a machine that m easures your urine flow rate, so should arrive with a moderately full bladder. We will test your urine for signs of infection. For the procedure, a small cath eter is placed into your bladder and one into the rectum for pressure measuremen ts. The catheters are taped and connected to tubing that allows sterile water t o be slowly infused into your bladder. After filling is complete, you will be a sked to empty your bladder completely. Instructions for the day of your urodynamics: 1. Report to the session with a moderately full bladder. Try not to urinate at least one hour before arriving to the clinic. If you have been diagnosed with I nterstitial Cystitis, Neurogenic Bladder, Urinary Retention, or if you are unabl e to urinate, please empty your bladder before reporting for your procedure. 2. Wear comfortable clothing. 3. Eat and drink normally for the exam. Do not fast. 4. Expect a minimum of one hour for the examination. 5. Discontinue all bladder relaxant medication three (3) days prior to examinati on, unless specifically advised to continue all medications. Medications to be avoided are: Bentyl, Ditropan, Detrol, Enablex, Gelnique, Hyoscamine, Levbid, Le vsin, Lesinex, Oxybutynin, Oxytrol, Oxytrol Patch, Pyridium, Pyridium Plus, Sanc tura, Toviaz, Urecholine, Urelle, Urospas, and Vesicare. If you are on medicati ons for prostate enlargement such as Cardura, Doxazosin, Flomax, Tamsulosin, Hyt rin, Terazosin, Rapaflo, Silodosin, please contact the office for further instru ctions. If you have questions regarding your specific medication, contact your doctors office. If you have a known urinary tract infection, please reschedule your appointment until treatment is completed. Contact your doctors office for further instru ctions. Thank you for choosing the [facility] Department of Urology for your health care needs. If you must cancel your Urodynamic Study appointment, please provide 72 hours [ (3) days] notice which allows us to provide this important service to another patient. Failure to provide 72 hours notice of cancellation will result in a $500 (five h undred dollar) fee. documented in this encounter Progress Notes * Rishi Cartwright MD - 06/03/2019 1:30 PM CDT Please see urine culture results. Please contact the patient with this informat ion. Recommend Nitrofurantoin 100 mg PO BID x 7 days. * Rishi Cartwright MD - 06/03/2019 1:30 PM CDT Date of Service: 06/03/2019 Subjective: Xin Fonseca is a 54 y.o. female w/ PMH of NV, DM, and mixed urinary and str ess incontinence who presents for worsening of voiding dysfunction following derek botulinum treatment in 01/2019. History of Present Illness Xin Fonseca is a 54 y.o. female w/ PMH of NV, DM, and mixed urinary and str ess incontinence who presents for worsening of voiding dysfunction following derek botulinum treatment in 01/2019. Patient does not self cath. Since her Botox injec tions, patient's urinary frequency has doubled from 4-5x/day to 10x/day. Patient no longer feels the urge to urinate and complains of leaking requiring 8 pads/d ay. She wets herself in bed every night. Patient also endorses dysuria, suprapub ic pain, burning flank pain, sweating, and chills. Medical History: Diagnosis Date Arthritis Asthma Back pain CAD (coronary artery disease) Carotid artery disease (HCC) Chronic female pelvic pain Chronic pain COPD (chronic obstructive pulmonary disease) (HCC) Depression DM (diabetes mellitus) (HCC) Dyslipidemia GERD (gastroesophageal reflux disease) Hayfever HTN (hypertension) Hypothyroidism IC (interstitial cystitis) Ischemic cardiomyopathy Mixed stress and urge urinary incontinence Myocardial infarction (HCC) 2008 Neuropathy OAB (overactive bladder) On supplemental oxygen therapy 2L at night Seizure (HCC) in high school Tobacco use Surgical History: Procedure Laterality Date CORONARY STENT PLACEMENT 2008 PUBOVAGINAL SLING 01/28/2012 CYSTOSCOPY 08/03/2013 Macroplastique bladder neck injection\\ PUBOVAGINAL SLING 10/22/2013 HX HEART CATHETERIZATION 2013 CYSTOSCOPY 09/12/2014 Bladder Botox injection; Dr. Sinclair CYSTOSCOPY 03/06/2015 Bladder Botox injection; Dr. Sinclair CYSTOSCOPY 09/04/2015 Bladder Botox injection; Dr. Sinclair URETEROSCOPY 10/05/2015 Cystoscopy, right-sided ureteroscopy, cytology, ureteral biopsy, and ureteral s tent placement; Dr. Durbin CYSTOSCOPY N/A 03/04/2016 CYSTOSCOPY, INTRAVESICAL BOTOX INJECTIONS (200 UNITS) performed by Hermila Durbin MD [facility] [place] CYSTOURETHROSCOPY INJ CHEMODENERVATION BLADDER N/A 09/16/2016 CYSTOSCOPY BOTOX INJECTIONS (200 UNITS) performed by Hermila Durbin MD [facility] ABDOMINAL AORTIC ANEURYSM REPAIR, OPEN 2017 [place] CYSTOURETHROSCOPY INJ CHEMODENERVATION BLADDER N/A 03/17/2017 CYSTOSCOPY WITH INTRAVESICAL BLADDER BOTOX INJECTIONS (200 UNITS) performed by Hermila Durbin MD [facility] LEG AMPUTATION BELOW KNEE Right 08/20/2018 RIGHT BELOW KNEE AMPUTATION performed by Pradip Jaramillo MD at [facility] INCISION AND DRAINAGE Right 10/15/2018 INCISION AND DRAINAGE POSTOPERATIVE WOUND INFECTION RIGHT BELOW THE KNEE AMPUTA TION STUMP WITH APPLICATION OF WOUND VAC performed by Pradip Jaramillo MD at [facility] CYSTOURETHROSCOPY N/A 02/08/2019 CYSTOURETHROSCOPY WITH INJECTION FOR CHEMODENERVATION OF THE BLADDER (BOTOX 200 UNITS) performed by Hermila Durbin MD at [facility] CARPAL TUNNEL RELEASE Bilateral unsure PARTIAL HYSTERECTOMY unsure Family History Problem Relation Age of Onset Hypertension Mother Diabetes Father Current Outpatient Medications Medication Sig Dispense Refill albuterol (VENTOLIN HFA, PROAIR HFA) 90 mcg/actuation inhaler Inhale 2 Puffs by mouth every 4 hours as needed. albuterol 0.5% (PROVENTIL; VENTOLIN) 2.5 mg/0.5 mL nebu nebulizer solution I nhale 2.5 mg solution as directed four times daily. amLODIPine (NORVASC) 5 mg tablet Take 5 mg by mouth daily. aspirin EC 81 mg tablet Take 81 mg by mouth daily. Take with food. atorvastatin (LIPITOR) 40 mg tablet Take 40 mg by mouth daily. budesonide/formoterol (SYMBICORT) 160/4.5 mcg HFAA inhalation Inhale 2 Puffs by mouth twice daily. cetirizine (ZYRTEC) 10 mg tablet Take 10 mg by mouth daily. cyclobenzaprine (FLEXERIL) 10 mg tablet Take 10 mg by mouth daily. docusate (COLACE) 100 mg capsule Take one capsule by mouth twice daily. 180 capsule 3 fluoxetine(+) (PROZAC) 40 mg capsule Take 40 mg by mouth daily. fluticasone (FLONASE) 50 mcg/actuation nasal spray Apply 1 spray to each nos tril as directed daily as needed. gabapentin (NEURONTIN) 600 mg tablet Take two tablets by mouth twice daily. 90 tablet 6 levothyroxine (SYNTHROID) 50 mcg tablet Take 50 mcg by mouth daily 30 minute s before breakfast. metFORMIN (GLUCOPHAGE) 500 mg tablet Take 500 mg by mouth twice daily with alba troncoso. metoprolol tartrate (LOPRESSOR) 25 mg tablet Take 25 mg by mouth twice daily . 5 montelukast (SINGULAIR) 10 mg tablet Take 10 mg by mouth at bedtime daily. mupirocin (BACTROBAN) 2 % topical ointment APPLY TO AFFECTED AREA THREE TIME S DAILY 22 g 0 MYRBETRIQ 50 mg tablet Take one tablet by mouth daily. 90 tablet 1 naproxen (NAPROSYN) 500 mg tablet Take 500 mg by mouth twice daily as needed . nitroglycerin (NITROSTAT) 0.[address] 0.4 mg under tongue every 5 mi nutes as needed. oxybutynin XL (DITROPAN XL) 15 mg tablet Take one tablet by mouth daily. Do not cut/ crush/ chew [address] (PROTONIX) 40 mg tablet Take 40 mg by mouth daily. sodium hypochlorite (DAKIN'S SOLUTION) 0.25 % topical solution Apply topica lly to affected area daily. 120 mL 0 tiotropium (SPIRIVA WITH HANDIHALER) 18 mcg capsule for inhaler Place 18 mcg into inhaler and inhale into lungs as directed daily as needed. traZODone (DESYREL) 100 mg tablet Take 100 mg by mouth at bedtime daily. trimethoprim/sulfamethoxazole (BACTRIM DS) 160/800 mg tablet Take one tablet by mouth twice daily. 2 tablet 0 trospium(+) (SANCTURA) 20 mg tablet Take one tablet by mouth twice daily bef ore meals. 60 tablet 3 No current facility-administered medications for this visit. Allergies Allergen Reactions Asa [Aspirin] NAUSEA AND VOMITING Can tolerate baby aspirin Codeine HIVES Pcn [Penicillins] EDEMA Patient states tolerates Cephalexin Peanut HIVES Benazepril SEE COMMENTS Patient states, "I get awful sick" Social History Socioeconomic History Marital status: Single Spouse name: Not on file Number of children: Not on file Years of education: Not on file Highest education level: Not on file Occupational History Not on file Tobacco Use Smoking status: Former Smoker Packs/day: 3.00 Years: 30.00 Pack years: 90.00 Types: Cigarettes Last attempt to quit: 07/28/2018 Years since quittin.8 Smokeless tobacco: Never Used Tobacco comment: decreased to .5ppd since 2012 Substance and Sexual Activity Alcohol use: No Drug use: No Sexual activity: Never Other Topics Concern Not on file Social History Narrative Merged History Encounter Review of Systems Constitutional: Positive for appetite change, chills and diaphoresis. Negative f or activity change, fatigue, fever and unexpected weight change. HENT: Negative for hearing loss, rhinorrhea and sinus pressure. Eyes: Negative for visual disturbance. Respiratory: Positive for cough, chest tightness and shortness of breath. Negati ve for apnea. Cardiovascular: Positive for palpitations. Negative for chest pain and leg swell ing. Gastrointestinal: Positive for abdominal pain. Negative for blood in stool, cons tipation, diarrhea, nausea, rectal pain and vomiting. Genitourinary: Positive for dysuria, enuresis, flank pain, frequency, pelvic katheryn n, urgency and vaginal pain. Negative for decreased urine volume, difficulty uri nating, dyspareunia, genital sores, hematuria, vaginal bleeding and vaginal disc harge. Musculoskeletal: Positive for arthralgias, back pain, gait problem and myalgias. Skin: Negative for rash and wound. Neurological: Positive for weakness, light-headedness and headaches. Negative fo r dizziness, tremors, seizures, syncope and numbness. Hematological: Negative for adenopathy. Bruises/bleeds easily. Psychiatric/Behavioral: Positive for dysphoric mood. Negative for decreased conc entration. The patient is nervous/anxious. Objective: albuterol (VENTOLIN HFA, PROAIR HFA) 90 mcg/actuation inhaler Inhale 2 Puffs by mouth every 4 hours as needed. albuterol 0.5% (PROVENTIL; VENTOLIN) 2.5 mg/0.5 mL nebu nebulizer solution I nhale 2.5 mg solution as directed four times daily. amLODIPine (NORVASC) 5 mg tablet Take 5 mg by mouth daily. aspirin EC 81 mg tablet Take 81 mg by mouth daily. Take with food. atorvastatin (LIPITOR) 40 mg tablet Take 40 mg by mouth daily. budesonide/formoterol (SYMBICORT) 160/4.5 mcg HFAA inhalation Inhale 2 Puffs by mouth twice daily. cetirizine (ZYRTEC) 10 mg tablet Take 10 mg by mouth daily. cyclobenzaprine (FLEXERIL) 10 mg tablet Take 10 mg by mouth daily. docusate (COLACE) 100 mg capsule Take one capsule by mouth twice daily. fluoxetine(+) (PROZAC) 40 mg capsule Take 40 mg by mouth daily. fluticasone (FLONASE) 50 mcg/actuation nasal spray Apply 1 spray to each nos tril as directed daily as needed. gabapentin (NEURONTIN) 600 mg tablet Take two tablets by mouth twice daily. levothyroxine (SYNTHROID) 50 mcg tablet Take 50 mcg by mouth daily 30 minute s before breakfast. metFORMIN (GLUCOPHAGE) 500 mg tablet Take 500 mg by mouth twice daily with m karyna. metoprolol tartrate (LOPRESSOR) 25 mg tablet Take 25 mg by mouth twice daily . montelukast (SINGULAIR) 10 mg tablet Take 10 mg by mouth at bedtime daily. mupirocin (BACTROBAN) 2 % topical ointment APPLY TO AFFECTED AREA THREE TIME S DAILY MYRBETRIQ 50 mg tablet Take one tablet by mouth daily. naproxen (NAPROSYN) 500 mg tablet Take 500 mg by mouth twice daily as needed . nitroglycerin (NITROSTAT) 0.[address] 0.4 mg under tongue every 5 mi nutes as needed. oxybutynin XL (DITROPAN XL) 15 mg tablet Take one tablet by mouth daily. Do not cut/ crush/ chew pantoprazole DR (PROTONIX) 40 mg tablet Take 40 mg by mouth daily. sodium hypochlorite (DAKIN'S SOLUTION) 0.25 % topical solution Apply topica lly to affected area daily. tiotropium (SPIRIVA WITH HANDIHALER) 18 mcg capsule for inhaler Place 18 mcg into inhaler and inhale into lungs as directed daily as needed. traZODone (DESYREL) 100 mg tablet Take 100 mg by mouth at bedtime daily. trimethoprim/sulfamethoxazole (BACTRIM DS) 160/800 mg tablet Take one tablet by mouth twice daily. trospium(+) (SANCTURA) 20 mg tablet Take one tablet by mouth twice daily bef ore meals. Vitals: 06/03/19 1310 BP: 140/53 Pulse: 66 Weight: 82.6 kg (182 lb) Height: 170.2 cm (67") Body mass index is 28.51 kg/m. Physical Exam Constitutional: She appears well-developed and well-nourished. No distress. HENT: Head: Normocephalic and atraumatic. Eyes: No scleral icterus. Cardiovascular: Normal rate and regular rhythm. Pulmonary/Chest: Effort normal. No stridor. No respiratory distress. She exhibit s no tenderness. Abdominal: Soft. There is no tenderness. Genitourinary: +suprapubic tenderness, +L CVA tenderness Assessment and Plan: Xin Fonseca is a 54 y.o. female w/ PMH of NV, DM, and mixed urinary and st ress incontinence who presents for worsening of frequency and leaking as well as urinary tract infection. PVR of 26 mL today showed that she is emptying her shea dder. #UTI - urine dipstick with +urine nitrite, moderate pyuria, and pH of 7.5 - urine culture pending - 7d course of macrobid #urinary incontinence - PVR today showed 26 mL retained in bladder - should RTC for urodynamic testing and cystoscopy - patient currently taking oxybutinin 15 - will start on mirabegron pending insurance coverage Patient seen and discussed with Dr. Cartwright, who directed plan of care. Consuelo Gilliam MS4 Urology STAFF NOTE History and examination reviewed and james elements confirmed. Discussed in detail with the patient and questions answered. Ms. Fonseca presents to clinic for followup as outlined. She is having increased incontinence symptoms which are bothersome for her. She is going to be schedul ed for additional evaluation with urodynamic testing and cystoscopy and plans fo r additional therapy will be based on this testing. She is going to try stoppin g oxybutynin and change to mirabegron. We discussed that insurance coverage can be an issue with these types of medications. Will sent urine for culture and t reat empirically with antibiotics. I personally saw and evaluated the patient and determined the plan of care. I p ersonally performed the james portions of the E&M visit, discussed the case with the student, and concur with documentation of history, physical examination, assessment, and treatment plan unless otherwise noted. Rishi Cartwright MD, MPH * Rosalva Mckeon LPN - 06/03/2019 1:30 PM CDT PVR=26ml * Rishi Cartwright MD - 06/03/2019 1:30 PM CDT documented in this encounter Plan of Treatment Care Team Description Date Type Specialty Rishi Cartwright MD [address] [facility] [address] [place] [address] [phone] Mixed urge and stress incontinence 08/12/2019 Hospital Encounter Rishi Cartwright MD [address] [facility] [address] [place] [address] [phone] CYSTOURETHROSCOPY WITH INJECTION FOR CHEMODENERVATION OF THE BLADDER (BOTOX 200 UNITS) 08/12/2019 Surgery documented as of this encounter Procedures Comments Procedure Name Priority Date/Time Associated Diagnosis CULTURE-URINE Routine 06/03/2019 Acute cystitis without W/SENSITIVITY 1:50 PM CDT hematuria POC URINE DIPSTICK MANUAL Routine 06/03/2019 Acute cystitis without READ hematuria documented in this encounter Results * CULTURE-URINE W/SENSITIVITY (06/03/2019 1:50 PM CDT) Battery Name URINE CULTURE [facility] MAIN LAB Specimen URINE MAIN LAB Description Special NONE MAIN LAB Requests Culture >100,000 organisms/ml MAIN LAB ESCHERICHIA COLI, ESBL POSITIVE (A) Report Status FINAL MAIN LAB 06/06/2019 Organism ID >[id number] organisms/ml MAIN LAB ESCHERICHIA COLI, ESBL POSITIVE Specimen Urine [...] positive Performing Organization Address City/State/Zipcode Phone Number MAIN LAB [address] [place] [address] * POC URINE DIPSTICK MANUAL READ (06/03/2019) Urine Glucose neg IN CLINIC POC Urine Bilirubin neg IN CLINIC POC Urine Ketone neg IN CLINIC POC Urine Specific 1.005 IN CLINIC [place] POC Urine Blood POC neg IN CLINIC Urine PH POC 7.5 IN CLINIC Urine Protein neg IN CLINIC POC Urine 0.2 IN CLINIC Urobilinogen POC Urine Nitrite positive IN CLINIC POC Urine moderate IN CLINIC Leukocytes POC Color,UA yellow IN CLINIC Turbidity,UA clear IN CLINIC Specimen Urine - Urine Performing Organization Address [facility] Phone Number [facility] documented in this encounter Visit Diagnoses Diagnosis Acute cystitis without hematuria - Primary Acute cystitis Urge incontinence Urinary urgency Urgency of urination Urinary frequency documented in this encounter
--- OUTSIDE RECORDS SUMMARY | 2019-06-14 11:00 | XMS REPORT | Encounter Summary ---
Author Author [facility] Organization [facility] Address Unknown Phone Unavailable Care Team Providers Care Sales Porter Name Role Phone Osvaldo Palafox Unavailable Hermila Durbin MD Unavailable Rishi Cartwright MD Unavailable Donell Haque PA-C Unavailable Lizet Parsons RN Unavailable Unavailable Kristofer Dowling MD Unavailable Unavailable Harvinder Jj MD PCP Slade Merino DO 4 Reason for Visit * Reason Comments Prior Authorization Encounter Details Care Team Description Date Type Department Hermila Durbin MD [address] [facility] [address] [place] [address] Prior Authorization 03/02/[address] [facility] [address] [place] [address] Social History Date Tobacco Use [...] encounter Miscellaneous Notes * Telephone Encounter - Kelly Moser - 03/09/2019 11:18 AM CDT Spoke with patient to let her know that since she has not had any succuss with t he Trospium that I would start the process of a PA for the Mybetriq through [place]. She will hear something back with in 1-2 weeks. * Telephone Encounter - Kelly Moser - 03/02/2019 2:32 PM CDT Spoke with patient to let her know that her insurance will not approve the Myrbe triq at this time. She has to try and fail Trospium or another one in order for them to try a PA for Myrbetriq. I sent in a Rx for Trospium for her to try I also explained to her that if it i s to expensive that we have other we can try or we can give her the info from [facility]. No further questions from patient Instructed to call us if needed documented in this encounter Plan of Treatment Care Team Description Date Type Specialty Rishi Cartwright MD [address] [facility] [address] [place] [address] [phone] Mixed urge and stress incontinence 08/12/2019 Hospital Encounter Rishi Cartwright MD [address] [facility] [address] [place] [address] [phone] CYSTOURETHROSCOPY WITH INJECTION FOR CHEMODENERVATION OF THE BLADDER (BOTOX 200 UNITS) 08/12/2019 Surgery documented as of this encounter Visit Diagnoses Not on filedocumented in this encounter
--- OUTSIDE RECORDS SUMMARY | 2019-06-14 11:00 | XMS REPORT | Encounter Summary ---
Author Author [facility] Organization [facility] Address Unknown Phone Unavailable Care Team Providers Care Painter Airbrush Name Role Phone AnaliaOsvaldo echols Unavailable Hermila Durbin MD Unavailable Rishi Cartwright MD Unavailable Donell Haque PA-C Unavailable Lizet Parsons RN Unavailable Unavailable Kristofer Dowling MD Unavailable Unavailable Harvinder Jj MD PCP Slade Merino DO 4 Encounter Details Care Team Description Date Type Department Rishi Cartwright MD [address] Orth[facility] [address] [place] [address] 06/08/2019 Documentation The [facility] [address] [place] [address] Social History Date Tobacco Use [...] impairment: No documented as of this encounter Progress Notes * Ruba Yeager RN - 06/08/2019 6:06 PM CDT Prior Authorization initiated for Myrbetriq. Patient has tried oxybutynin and tr ospium in the past. Awaiting response from insurance. documented in this encounter Plan of Treatment Care Team Description Date Type Specialty Rishi Cartwright MD [address] [facility] [address] [place] [address] [phone] Mixed urge and stress incontinence 08/12/2019 Hospital Encounter Rishi Cartwright MD [address] [facility] [address] [place] [address] [phone] CYSTOURETHROSCOPY WITH INJECTION FOR CHEMODENERVATION OF THE BLADDER (BOTOX 200 UNITS) 08/12/2019 Surgery documented as of this encounter Visit Diagnoses Not on filedocumented in this encounter
--- OUTSIDE RECORDS SUMMARY | 2019-06-14 11:00 | XMS REPORT | Encounter Summary ---
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 Name Role Phone Osvaldo Palafox DO Unavailable Hermila Durbin MD Unavailable Rishi Cartwright MD Unavailable Donell Haque PA-C Unavailable Lizet Parsons RN Unavailable Unavailable Kristofer Dowling MD Unavailable Unavailable Harvinder Jj MD PCP Slade Merino DO 4 Reason for Referral * Consult, Test & Treat (Routine) Referred By Contact Referred To Contact Status Reason Specialty Diagnoses / Procedures Slade Prasad MD [address] [place] [address] [facility] [address] [place] [id number] Closed Specialty Services Diagnoses Required Below knee amputation status, right (HCC) Gait abnormality Reason for Visit * Reason Comments Amputation prosthetic evaluation Encounter Details Care Team Description Date Type Department Slade Prasad MD [address] [facility] [place] [address] Below knee amputation status, right (HCC) (Primary Dx); Gait abnormality; 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) 03/11/2019 Office Visit [facility] [address] [address] Social History Date Tobacco Use Types Packs/Day [...] Signs Reading Time Taken Comments Vital Sign 151/77 03/11/2019 8:33 AM CDT Blood Pressure 57 03/11/2019 8:33 AM CDT Pulse 36.4 C (97.6 F) 03/11/2019 8:33 AM CDT Temperature - - Respiratory Rate 95% 03/11/2019 8:33 AM CDT Oxygen Saturation - - Inhaled Oxygen Concentration 84.8 kg (187 lb) 03/11/2019 8:33 AM CDT Weight 170.2 cm (5' 7") 03/11/2019 8:33 AM CDT Height 29.29 03/11/2019 8:33 AM CDT Body Mass Index documented in this [...] this encounter Patient Instructions * Patient Instructions* Osvaldo Martin, RN - 03/11/2019 8:30 AM CDT It was a pleasure seeing you in clinic today. Chino Martin RN, BSN Clinical Nurse Coordinator Physical Medicaine & Rehab Dr. Slade Prasad [facility] [address] [place], [place] [address] For scheduling, cancelling, or changing appointments [phone] For prescription refills, please contact your pharmacy. Please allow 2-3 days f or refill requests to be filled. For information on spinal conditions, please visit [email or web address] documented in this encounter Progress Notes * Slade Prasad MD - 03/11/2019 8:30 AM CDT SPINE CENTER HISTORY AND PHYSICAL Chief Complaint Patient presents with Amputation prosthetic evaluation HISTORY OF PRESENT ILLNESS: 54 y.o. year old female with history of Right trans tibial amputation due to postoperative complications and infection following an ankle fracture in July of last year, here for evaluation for prosthetic madeline abilitation. Other co-morbidities include PVD, COPD, DM2, neuropathy. Patient d esires to ambulate with a prosthesis and improve function to K3 level. The patient was casted for a test socket earlier this year, now presenting for a Rx for her first BKA prosthesis. She has been ambulating with a manual WC for h ome level distances and is anxious to become more mobile, specifically so that s he can walk her dog. She denies falls, non-healing wounds, falls. FUNCTIONAL HISTORY: Previous level of function (prior to amputation): K3: High level of community functioning including ambulating with variable cad ence, traversing curbs, stairs and uneven surfaces without assistive device. Li ves in a home with a few stairs to enter and no stairs inside. Patient walks in the community on a regular basis for [place] such as shopping, and attends [facility] and events such as dog walking, community affairs. Patient required the ability to walk in unfamiliar areas and uneven surfaces such as grass, grav el, curbs, ramps and stairs. Medical Comorbidity Assessment: The following medical co morbidities were evaluated in the context of burden on functional mobility given the patient prosthetic need: Hx of DM: The patient's blood sugar control regimen is established resulting in adequate control of blood sugars. There are no current diabetic related wounds at this time that would impair safe donning of a prosthetic device. Hx of COPD: The patient is not currently requiring baseline supplemental oxygen, nor does this diagnosis affect the patient's ability to tolerate the additional functional energy required to ambulate successfully with a prosthetic device. Past Medical History: Diagnosis Date Arthritis Asthma Back pain CAD (coronary artery disease) Carotid artery disease (HCC) Chronic female pelvic pain Chronic pain COPD (chronic obstructive pulmonary disease) ([facility]) Depression DM (diabetes mellitus) ([facility]) Dyslipidemia GERD (gastroesophageal reflux disease) Hayfever HTN (hypertension) Hypothyroidism IC (interstitial cystitis) Ischemic cardiomyopathy Mixed stress and urge urinary incontinence Myocardial infarction ([facility]) 2009 Neuropathy OAB (overactive bladder) On supplemental oxygen therapy 2L at night Seizure ([facility]) in high school Tobacco use Past Surgical History: Procedure Laterality Date CORONARY STENT [...] by Hermila Durbin MD [facility] [place] CYSTOURETHROSCOPY INJ CHEMODENERVATION BLADDER N/A 09/16/2016 CYSTOSCOPY BOTOX INJECTIONS (200 UNITS) performed by Hermila Durbin MD [facility] ABDOMINAL AORTIC ANEURYSM REPAIR, OPEN 2017 [place] CYSTOURETHROSCOPY INJ CHEMODENERVATION BLADDER N/A 03/17/2017 CYSTOSCOPY [...] TUNNEL RELEASE Bilateral unsure PARTIAL HYSTERECTOMY unsure family history includes Diabetes in her father; Hypertension in her mother. Social History Socioeconomic History Marital status: Single Spouse name: Not on file Number of children: Not on file Years of education: Not on file Highest education level: Not on file Occupational History Not on file Tobacco Use Smoking status: Former Smoker Packs/day: 3.00 Years: 30.00 Pack years: 90.00 Types: Cigarettes Last attempt to quit: 07/28/2018 Years since quittin.6 Smokeless tobacco: Never Used Tobacco comment: decreased to .5ppd since 2012 Substance and Sexual Activity Alcohol use: No Drug use: No Sexual activity: Never Other Topics Concern Not on file Social History Narrative Merged History Encounter Allergies Allergen Reactions Asa [Aspirin] NAUSEA AND VOMITING Can tolerate baby aspirin Codeine HIVES Pcn [Penicillins] EDEMA Patient states tolerates Cephalexin Peanut HIVES Benazepril SEE COMMENTS Patient states, "I get awful sick" Current Outpatient Medications: albuterol (VENTOLIN HFA, PROAIR HFA) 90 mcg/actuation inhaler, Inhale 2 Puf fs by mouth every 4 hours as needed., Disp: , Rfl: albuterol 0.5% (PROVENTIL; VENTOLIN) 2.5 mg/0.5 mL nebu nebulizer solution, Inhale 2.5 mg solution as directed four times daily., Disp: , Rfl: amLODIPine (NORVASC) 5 mg tablet, Take 5 mg by mouth daily., Disp: , Rfl: aspirin EC 81 mg tablet, Take 81 mg by mouth daily. Take with food., Disp: , Rfl: atorvastatin (LIPITOR) 40 mg tablet, Take 40 mg by mouth daily., Disp: , Rf l: budesonide/formoterol (SYMBICORT) 160/4.5 mcg HFAA inhalation, Inhale 2 Puf fs by mouth twice daily., Disp: , Rfl: cetirizine (ZYRTEC) 10 mg tablet, Take 10 mg by mouth daily., Disp: , Rfl: cyclobenzaprine (FLEXERIL) 10 mg tablet, Take 10 mg by mouth daily., Disp: , Rfl: docusate (COLACE) 100 mg capsule, Take one capsule by mouth twice daily., D isp: 180 capsule, Rfl: 3 fluoxetine(+) (PROZAC) 40 mg capsule, Take 40 mg by mouth daily., Disp: , R fl: fluticasone (FLONASE) 50 mcg/actuation nasal spray, Apply 1 spray to each n ostril as directed daily as needed., Disp: , Rfl: gabapentin (NEURONTIN) 300 mg capsule, Take three capsules by mouth three t imes daily., Disp: 270 capsule, Rfl: 11 levothyroxine (SYNTHROID) 50 mcg tablet, Take 50 mcg by mouth daily 30 lesley tonia before breakfast., Disp: , Rfl: metFORMIN (GLUCOPHAGE) 500 mg tablet, Take 500 mg by mouth twice daily with meals., Disp: , Rfl: metoprolol tartrate (LOPRESSOR) 25 mg tablet, Take 25 mg by mouth twice narendra ly., Disp: , Rfl: 5 montelukast (SINGULAIR) 10 mg tablet, Take 10 mg by mouth at bedtime daily. , Disp: , Rfl: mupirocin (BACTROBAN) 2 % topical ointment, APPLY TO AFFECTED AREA THREE TI MES DAILY, Disp: 22 g, Rfl: 0 MYRBETRIQ 50 mg tablet, Take one tablet by mouth daily., Disp: 90 tablet, R fl: 1 naproxen (NAPROSYN) 500 mg tablet, Take 500 mg by mouth twice daily as need ed., Disp: , Rfl: nitroglycerin (NITROSTAT) 0.4 mg tablet, Place 0.4 mg under tongue every 5 minutes as needed., Disp: , Rfl: oxybutynin XL (DITROPAN XL) 15 mg tablet, Take one tablet by mouth daily. D o not cut/ crush/ chew, Disp: 90 tablet, Rfl: [address] (PROTONIX) 40 mg tablet, Take 40 mg by mouth daily., Disp: , Rfl: sodium hypochlorite (DAKIN'S SOLUTION) 0.25 % topical solution, Apply topi mikaela to affected area daily., Disp: 120 mL, Rfl: 0 tiotropium (SPIRIVA WITH HANDIHALER) 18 mcg capsule for inhaler, Place 18 m cg into inhaler and inhale into lungs as directed daily as needed., Disp: , Rfl: traZODone (DESYREL) 100 mg tablet, Take 100 mg by mouth at bedtime daily., Disp: , Rfl: trimethoprim/sulfamethoxazole (BACTRIM DS) 160/800 mg tablet, Take one tabl et by mouth twice daily., Disp: 2 tablet, Rfl: 0 trospium(+) (SANCTURA) 20 mg tablet, Take one tablet by mouth twice daily b efore meals., Disp: 60 tablet, Rfl: 3 Vitals: 03/11/19 0833 BP: 151/77 Pulse: 57 Temp: 36.4 C (97.6 F) TempSrc: Oral SpO2: 95% Weight: 84.8 kg (187 lb) Height: 170.2 cm (67") Female Opioid Risk Score: 1 (03/11/2019 8:00 AM) Opioid Risk Category: Low Risk (03/11/2019 8:00 AM) Pain Score: Nine Body mass index is 29.29 kg/m. Review of Systems A 10 system review of systems was obtained and negative except where stated abov e and in the HPI. PHYSICAL EXAM: Gen: Alert & Oriented X 3, No Acute Distress HEENT: NCAT, PERRL, EOMI, MMM Neck: Supple, no elevated JVP Heart: Regular Rate & Rhythm Lungs: Good inspiratory effort Abdomen: Soft, non-tender, non-distended Skin: Warm, dry, Rt BKA incision site healed, some adhesions over incision scar, no erythema, breakdown Ext: Rt BKA MS: Root Right Left Hip Flexion L2 5 5 Knee Flexion L5/S1 5 5 Knee Extension L3 5 5 Dorsiflexion L4 - 5 Plantarflexion S1 - 5 EHL Extension L5 - 5 Neuro: Cranial Nerves Cranial Nerves 2-12 are grossly intact DTR's 2+ and symmetrical Upper Extremity Sensation Intact to light touch bilaterally Lower Extremity Sensation Intact to light touch bilaterally Proprioception Intact Bilaterally Memory/Cognition/Speech Intact IMPRESSION: 1. Below knee amputation status, right (HCC) 2. Gait abnormality 3. 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 year old female with history of transtibial amputation here for evaluati on for prosthetic rehabilitation. Patient has the ability to ambulate with a pr osthesis and improve function to K2 level. Plan: Prosthetic prescription to include: Rt transtibial amputation Socket: transtibial socket, TSB ultralight, acrylic, flexible inner liner Suspension: Sucction, silicone gel liner, silicone suspension sleeve Endoskeletal pilon, allignable, adjustable Hydraulic ankle Flex foot Misc supplies, socks, components Phantom limb pain management: I will prescribe Gabapentin (increase regimen to 900mg TID). She is not interes nuris in topical creams at this time. Follow-up: The patient will follow up to discuss prosthetic needs and/or phantom limb pain management as needed. documented in this encounter Plan of Treatment Care Team Description Date Type Specialty Rishi Cartwright MD [address] [facility] [address] [place] [address] [phone] Mixed urge and stress incontinence 08/12/2019 Hospital Encounter Rishi Cartwright MD [address] [facility] [address] [place] [address] [phone] CYSTOURETHROSCOPY WITH INJECTION FOR CHEMODENERVATION OF THE BLADDER (BOTOX 200 UNITS) 08/12/2019 Surgery Order Schedule Name Type Priority Associated Diagnoses Ordered: 03/11/2019 AMB REFERRAL FOR Outpatient Routine Below knee amputation ORTHOTICS-EXTERNAL Referral status, right (HCC) Gait abnormality documented as of this encounter Visit Diagnoses Diagnosis Below knee amputation status, right (HCC) - Primary Gait abnormality Abnormality of gait 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
[2019-06-14] MEDS ORDERED: RT-ALBUTEROL/IPRATROPIUM 3 ML (DUONEB) VIAL ONE (11:01)
--- OUTSIDE RECORDS SUMMARY | 2019-06-14 11:01 | XMS REPORT | Encounter Summary ---
Author Author [facility] Organization [facility] Address Unknown Phone Unavailable Care Team Providers Care Rn Registry Name Role Phone Osvaldo Palafox DO Unavailable Hermila Durbin MD Unavailable Rishi Cartwright MD Unavailable Donell Haque PA-C Unavailable Lizet Parsons RN Unavailable Unavailable Kristofer Dowling MD Unavailable Unavailable Harvinder Jj MD PCP Slade Merino DO 4 Reason for Visit * Auth/Cert Referred By Contact Referred To Contact Status Reason Specialty Diagnoses / Procedures Diagnoses Urge incontinence Urge incontinence [N39.41] P rocedures HI CYSTOURETHROSCOPY INJ CHEMODENERVATION BLADDER CYSTOURETHROSCOPY WITH INJECTION FOR CHEMODENERVATION OF THE BLADDER (BOTOX 200 UNITS) Encounter Details Care Team Description Date Type Department Hermila Durbin MD [address] Ortho[facility] Lvl [address] [place] [address] Urge incontinence 02/08/2019 Hospital [facility] OR [address] [address] Social History Date Tobacco Use [...] Signs Reading Time Taken Comments Vital Sign 127/65 02/08/2019 1:45 PM CDT Blood Pressure 64 02/08/2019 1:45 PM CDT Pulse 36.8 C (98.2 F) 02/08/2019 2:00 PM CDT Temperature - - Respiratory Rate 93% 02/08/2019 1:45 PM CDT Oxygen Saturation - - Inhaled Oxygen Concentration 84.8 kg (187 lb) 02/08/2019 11:21 AM CDT Weight 170.2 cm (5' 7") 02/08/2019 11:21 AM CDT Height 29.29 02/08/2019 11:21 AM CDT Body Mass Index documented in [...] impairment: No documented as of this encounter Discharge Instructions * Pre-Anesthesia Patient Instructions* Kirti Olivas, RN - 01/19/2019 11:24 AM WAFER POLISHING WORKER GENERAL INFORMATION Before you come to the hospital Make arrangements for a responsible adult to drive you home and stay with you for 24 hours following surgery. Bath/Shower Instructions {BATH/SHOWER INSTRUCTIONS:23476} Leave money, credit cards, jewelry, and any other valuables at home. The [facility] is not responsible for the loss or breakage of persona l items. Remove nail british virgin islander, makeup and all jewelry (including piercings) before comin g to the hospital. The morning of your procedure: brush your teeth and tongue do not smoke do not shave the area where you will have surgery What to bring to the hospital ID/ Insurance Card Inspector And Mender card Official documents for legal guardianship Copy of your Living Will, Advanced Directives, and/or Durable Power of Attorn ey Small bag with a few personal belongings {OTHER PERSONAL ITEMS:06401} Dress in clean, loose, comfortable clothing Eating or drinking before surgery {FOOD/DRINK:35429} Other instructions: Other instructions Notify your surgeon if: there is a possibility that you are you become ill with a cough, fever, sore throat, nausea, vomiting or flu-like symptoms you have any open wounds/sores that are red, painful, draining, or are new si nce you last saw the doctor you need to cancel your procedure {ARRIVAL TIME:} Notify us at {SURGERY CONTACT PHONE NUMBERS:[id number]} if you need to cancel your procedure if you are going to be late Arrival at the hospital R POLISHING WORKER * Pre-Anesthesia Medication Instructions* Reji Vazquez, PHARMD - 01/20/2019 12:46 PM WAFER [employer]ING WORKER YOUR MEDICATIONS: albuterol (VENTOLIN HFA, PROAIR HFA) 90 mcg/actuation [...] as directed daily as needed. gabapentin (NEURONTIN) 300 mg capsule Take two capsules by mouth three times daily. HYDROcodone/acetaminophen(+) (NORCO) 10/325 mg tablet Take one tablet by kiara th every 6 hours as needed for Pain Max 8 tabs/day levothyroxine (SYNTHROID) 50 mcg tablet Take 50 [...] TO AFFECTED AREA THREE TIME S DAILY naproxen (NAPROSYN) 500 mg tablet Take 500 [...] into lungs as directed daily as needed. traMADol (ULTRAM) 50 mg tablet Take one tablet by mouth three times weekly. With dressing changes traZODone (DESYREL) 100 mg tablet Take 100 mg by mouth at bedtime daily. trimethoprim/sulfamethoxazole (BACTRIM DS) 160/800 mg tablet Take one tablet by mouth twice daily. YOUR MEDICATION INSTRUCTIONS FOR SURGERY: Before surgery Stop the following vitamins, herbals, and natural supplements 14 days before luis felipe george: Stop the following medications 7 days before surgery: Anti-inflammatory medications such as ibuprofen (Advil, Motrin) and naproxen (Aleve) You may use acetaminophen (Tylenol) Please follow these instructions regarding your blood thinner medications: Please follow these instructions regarding your insulin: Morning of surgery On the morning of surgery, do NOT take these medications: Remaining vitamins/supplements Ointments/creams/lotions On the morning of surgery, take ONLY these medications with a sip (1-2 ounces) o f water: Other information Before surgery, please contact the clinic pharmacist with any medicine updates o r questions. E-mail: [email or web address] Before going home from the hospital, please ask your doctor when you should re-s tart your medicines that were stopped before surgery. R POLISHING WORKER documented in this encounter Medications at Time of Discharge [...] each nostril as directed daily as needed. levothyroxine (SYNTHROID) Take 50 mcg 0 50 [...] under tongue every 5 minutes as needed. 01/14/2019 oxybutynin XL (DITROPAN Take one 90 tablet 3 XL) 15 mg tablet tablet by mouth daily. Do not cut/ crush/ chew pantoprazole DR Take 40 mg by 0 [...] mg tablet by mouth at bedtime daily. 01/10/2019 trimethoprim/sulfamethoxa Take one 2 tablet 0 zole (BACTRIM DS) 160/800 tablet by mg tablet mouth twice daily. 09/02/2018 03/11/2019 gabapentin (NEURONTIN) Take two 270 capsule 3 300 mg capsule capsules by mouth three times daily. 11/09/2018 03/11/2019 HYDROcodone/acetaminophen Take one 50 tablet 0 (+) (NORCO) 10/325 mg tablet by tablet mouth every 6 hours as needed for Pain Max 8 tabs/day 12/22/2018 03/11/2019 traMADol (ULTRAM) 50 mg Take one 20 tablet 0 tablet tablet by mouth three times weekly. With dressing changes documented as of this encounter Progress Notes * Reji Vazquez, PHARMD - 01/20/2019 12:49 PM WAFER POLISHING WORKER PAC Pharmacist Medication Plan Note: We were consulted to determine a plan for Xin Fonseca's Aspirin 81mg for up coming surgery on 02/08/2019. Medication reconciliation and all remaining medic ation instructions will be completed by our triage nurse as usual. Per Yefri MATUTE with Dr. Jj, Aspirin may be held for 7 days prior to the proced ure. The plan above was communicated to the patient who verbalized understanding. Reji Vazquez, ZAHIRA R POLISHING WORKER * Kirti Olivas RN - 01/19/2019 11:30 AM WAFER POLISHING WORKER PAC phone triage assessment completed with pt for sx on 02/08/[address] norma vasquez. Patient denies any changes in her medical hx or functional status since he r last sx here ([facility]) 08/20/18. She was seen in PAC 08/09/18. Pt still wears 2 L O2 NOC and denies chest pains or SOA. Pre-op and medication instructions reviewed with patient. No vitamins, herbals, and supplements 14 days prior to surgery. No NSAIDs 7 days prior to surgery. Pt to hold metformin, metoprolol, colace and dakin solution DOS. ASA instructions to come from pharmacy (med from sent to them) NPO after 2300 the night before surgery, but may have water until 2 hours prior to arrival for surgery. Pt verba lized understanding of instructions and declined a copy. R POLISHING WORKER documented in this encounter H&P Notes * Hermila Durbin MD - 02/08/2019 11:57 AM CDT History and Physical Update Note Allergies: Asa [aspirin]; Codeine; Pcn [penicillins]; Peanut; and Benazepril Lab/Radiology/Other Diagnostic Tests: 24-hour labs: Results for orders placed or performed during the hospital encounter of 02/08/19 (from the past 24 hour(s)) POC GLUCOSE Collection Time: 02/08/19 11:21 AM Result Value Ref Range Glucose, POC 98 70 - 100 MG/DL Point of Care Testing: (Last 24 hours): POC Glucose (Download): 98 (02/08/19 2401) I have examined the patient, and there are no significant changes in their condi tion, from the previous H&P performed on 01/10/19. Maicol Marshall MD Pager [phone] ATTESTATION I personally performed the james portions of the E/M visit, discussed case with re sident and concur with resident documentation of history, physical exam, assessm ent, and treatment plan unless otherwise noted. Staff name: Hermila Durbin MD * Hermila Durbin MD - 01/10/2019 2:45 PM WAFER POLISHING WORKER Date of Service: 01/10/2019 Subjective: History of Present Illness Xin Fonseca is a 53 y.o. female who presents for follow up for overactive b ladder and urge incontinence managed with a combination of oxybutynin 10mg XL an d 200U Botox injections. Patient last had 200U Botox injection 03/17/17 she state s that she had marked improvement in her urinary incontinence. She has since had return of her symptoms of urge incontinence. She is now using 8 pads per day, i n the initial several months after her Botox injections she was using 2-3 pads p er day. She was taking oxybutynin 10mg XL QD which she stopped taking for reason s she cannot recall. She states that it worked well and there were no significan t side effects. Past Medical History: Diagnosis Date Arthritis Asthma Back pain CAD (coronary artery disease) Carotid artery disease (HCC) Chronic female pelvic pain Chronic pain COPD (chronic obstructive pulmonary disease) ([facility]) Depression DM (diabetes mellitus) ([facility]) Dyslipidemia GERD (gastroesophageal reflux disease) Hayfever HTN (hypertension) Hypothyroidism IC (interstitial cystitis) Ischemic cardiomyopathy Mixed stress and urge urinary incontinence Myocardial infarction (HCC) 2009 Neuropathy OAB (overactive bladder) On supplemental oxygen therapy 2L at night Seizure (HCC) in high school Tobacco use Past Surgical [...] BOTOX INJECTIONS (200 UNITS) performed by Hermila gordillo MD HI CYSTOURETHROSCOPY INJ CHEMODENERVATION BLADDER N/A 09/16/2016 CYSTOSCOPY BOTOX INJECTIONS (200 UNITS) performed by Hermila Durbin MD at [facility] OR/Periop ABDOMINAL AORTIC ANEURYSM REPAIR, OPEN 2017 HI CYSTOURETHROSCOPY INJ CHEMODENERVATION BLADDER N/A 03/17/2017 CYSTOSCOPY WITH INTRAVESICAL BLADDER BOTOX INJECTIONS (200 UNITS) performed by Hermila Durbin MD at [facility] OR/Periop LEG AMPUTATION BELOW KNEE Right 08/20/2018 RIGHT BELOW KNEE AMPUTATION performed by Pradip Jaramillo MD at [facility] OR/Periop INCISION AND DRAINAGE Right 10/15/2018 INCISION AND DRAINAGE POSTOPERATIVE WOUND INFECTION RIGHT BELOW THE KNEE AMPUTA TION STUMP WITH APPLICATION OF WOUND VAC performed by Pradip Jaramillo MD [facility]Periop CARPAL TUNNEL RELEASE Bilateral unsure PARTIAL HYSTERECTOMY [...] as directed daily as needed. gabapentin (NEURONTIN) 300 mg capsule Take two capsules by mouth three times daily. 270 capsule 3 HYDROcodone/acetaminophen(+) (NORCO) 10/325 mg tablet Take one tablet by kiara th every 6 hours as needed for Pain Max 8 tabs/day 50 tablet 0 levothyroxine (SYNTHROID) 50 mcg tablet Take 50 mcg by mouth daily 30 minute s before breakfast. metFORMIN (GLUCOPHAGE) 500 mg tablet Take 500 mg by mouth twice daily with m eals. metoprolol tartrate (LOPRESSOR) 25 mg tablet Take 25 mg by mouth twice daily . 5 montelukast (SINGULAIR) 10 mg tablet Take 10 mg by mouth at bedtime daily. mupirocin (BACTROBAN) 2 % topical ointment APPLY TO AFFECTED AREA THREE TIME S DAILY 22 g 0 naproxen (NAPROSYN) 500 mg tablet Take 500 mg by mouth twice daily as needed . nitroglycerin (NITROSTAT) 0.[address] 0.4 mg under tongue every 5 mi nutes as needed. oxybutynin XL (DITROPAN XL) 10 mg tablet Take one tablet by mouth [...] into lungs as directed daily as needed. traMADol (ULTRAM) 50 mg tablet Take one tablet by mouth three times weekly. With dressing changes 20 tablet 0 traZODone (DESYREL) 100 mg tablet Take 100 mg by mouth at bedtime daily. trimethoprim/sulfamethoxazole (BACTRIM DS) 160/800 mg tablet Take one tablet by mouth twice daily. 2 tablet 0 No current facility-administered medications for this visit. [...] file Highest education level: Not on file Social Needs Financial resource strain: Not on file Food insecurity - worry: Not on file Food insecurity - inability: Not on file Transportation needs - medical: Not on file Transportation needs - non-medical: Not on file Occupational History Not on file Tobacco Use Smoking status: Former Smoker Packs/day: 3.00 Years: 30.00 Pack years: 90.00 Types: Cigarettes Last attempt to quit: 07/28/2018 Years since quittin.4 Smokeless tobacco: Never Used Tobacco comment: decreased to .5ppd since 2012 Substance and Sexual Activity Alcohol use: No Drug use: No Sexual activity: No Other Topics Concern Not on file Social History Narrative Merged History Encounter Review of Systems Constitutional: Negative for activity change, appetite change, chills, diaphores is, fatigue, fever and unexpected weight change. HENT: Negative for congestion, hearing loss, mouth sores and sinus pressure. Eyes: Negative for visual disturbance. Respiratory: Negative for apnea, cough, chest tightness and shortness of breath. Cardiovascular: Negative for chest pain, palpitations and leg swelling. Gastrointestinal: Negative for abdominal pain, blood in stool, constipation, sade rrhea, nausea, rectal pain and vomiting. Genitourinary: Negative for decreased urine volume, difficulty urinating, dyspar eunia, dysuria, enuresis, flank pain, frequency, genital sores, hematuria, menst rual problem, pelvic pain, urgency, vaginal bleeding, vaginal discharge and vagi nal pain. Musculoskeletal: Negative for arthralgias, back pain, gait problem and myalgias. Skin: Negative for rash and wound. Neurological: Negative for dizziness, tremors, seizures, syncope, weakness, ligh t-headedness, numbness and headaches. Hematological: Negative for adenopathy. Does not bruise/bleed easily. Psychiatric/Behavioral: Negative for decreased concentration and dysphoric mood. The patient is not nervous/anxious. Objective: albuterol (VENTOLIN HFA, PROAIR HFA) [...] as directed daily as needed. gabapentin (NEURONTIN) 300 mg capsule Take two capsules by mouth three times daily. HYDROcodone/acetaminophen(+) (NORCO) 10/325 mg tablet Take one tablet by kiara th every 6 hours as needed for Pain Max 8 tabs/day levothyroxine (SYNTHROID) 50 mcg tablet Take 50 [...] TO AFFECTED AREA THREE TIME S DAILY naproxen (NAPROSYN) 500 mg tablet Take 500 mg by mouth twice daily as needed . nitroglycerin (NITROSTAT) 0.[address] 0.4 mg under tongue every 5 mi nutes as needed. oxybutynin XL (DITROPAN XL) 10 mg tablet Take one tablet by mouth daily. Do not cut/ crush/ chew pantoprazole DR (PROTONIX) 40 mg tablet Take 40 mg by mouth daily. sodium hypochlorite (DAKIN'S SOLUTION) 0.25 % topical solution Apply topica lly to affected area daily. tiotropium (SPIRIVA WITH HANDIHALER) 18 mcg capsule for inhaler Place 18 mcg into inhaler and inhale into lungs as directed daily as needed. traMADol (ULTRAM) 50 mg tablet Take one tablet by mouth three times weekly. With dressing changes traZODone (DESYREL) 100 mg tablet Take 100 mg by mouth at bedtime daily. trimethoprim/sulfamethoxazole (BACTRIM DS) 160/800 mg tablet Take one tablet by mouth twice daily. Vitals: 01/10/19 1519 BP: 157/77 Pulse: 83 Weight: 84.8 kg (187 lb) Height: 170.2 cm (67") Body mass index is 29.29 kg/m. Physical Exam Constitutional: She is oriented to person, place, and time. She appears well-dev eloped and well-nourished. No distress. Heavy cigarette smoke. HENT: Head: Normocephalic and atraumatic. Eyes: EOM are normal. Right eye exhibits no discharge. Left eye exhibits no disc harge. Neck: Normal range of motion. No JVD present. Cardiovascular: Normal rate and regular rhythm. Pulmonary/Chest: Effort normal and breath sounds normal. No respiratory distress . She has no wheezes. Abdominal: Soft. She exhibits no distension. There is no tenderness. Musculoskeletal: Normal range of motion. She exhibits no edema. Lower extremity amputation above knee. Wheelchair bound. Neurological: She is alert and oriented to person, place, and time. Coordination normal. Skin: Skin is warm. She is not diaphoretic. No pallor. Psychiatric: She has a normal mood and affect. Her behavior is normal. Judgment and thought content normal. Assessment and Plan: Problem Mixed urge and stress incontinence (TRI) TRI (KATIA > UUI) refractory to a pubovaginal sling x 2 in 10/22/2013 and 01/28/2012 and macroplastique in 08/03/2013, mirabegron and anticholinergics. 1 ppd, poorly controlled DMII, obesity. UDS (08/30/2014): small capacity; complete emptying; +DO with leak. Cysto (08/30/14): unremarkable. Botox 200U (09/15/2014, 03/06/2015): no improvement; non-compliant with reductio n of fluids and caffeine; continues drinking excessive amount of soda and coffee . Botox 250u (09/04/2015): slight improvement yet continued non-compliance. Botox 200u (03/04/2016). 200U Botox injection (03/17/17). Decreased pad usage to 2-3 per day. 12/31/18: Pad usage back up to 8 per day. Mixed urge and stress incontinence (TRI) 53 year old female with PMH of mixed incontinence managed with botox and oxybuty mia 10mg XL with return of symptoms Plan: - Schedule for botox 02/08/19 200U - Oxybutynin 10mg XL - Urine culture today - Empiric bactrim started Patient seen and discussed with Dr. Durbin, who directed plan of care. Ross Olson MD Urology PGY-2 Orders Placed This Encounter CULTURE-URINE W/SENSITIVITY POC URINE DIPSTICK trimethoprim/sulfamethoxazole (BACTRIM DS) 160/800 mg tablet oxybutynin XL (DITROPAN XL) 10 mg tablet ATTESTATION I personally performed the james portions of the E/M visit, discussed case with re sident and concur with resident documentation of history, physical exam, assessm ent, and treatment plan unless otherwise noted. Staff name: Hermila Durbin MD R POLISHING WORKER documented in this encounter Miscellaneous Notes * Operative Report (Direct Entry) - Hermila Durbin MD - 02/08/2019 12:32 PM CDT OPERATIVE REPORT Name: Xin Fonseca is a 54 y.o. female : 1965 DATE OF OPERATION: 02/08/2019 Surgeon(s) and Role: * Hermila Durbin MD - Primary * Maicol Marshall MD - Resident - Assisting Preoperative Diagnosis: Urge incontinence [N39.41] Post-op Diagnosis * Urge incontinence [N39.41] Procedure(s): CYSTOURETHROSCOPY WITH INJECTION FOR CHEMODENERVATION OF THE BLADDER (BOTOX 200 UNITS) Anesthesia Type: General Indications For Procedure: 54yoF with urge incontinence lost to follow up who re turns for botox today. Description and Findings of Operative Procedure: After obtaining informed consent, patient was brought back to the operating georgina m and placed in the supine position. General anesthesia was induced smoothly wit hout complication. A proper timeout was performed confirming proper patient, pro cedure, and laterality. Patient was moved to the dorsal lithotomy position. Jennifer ent was prepped and draped in the usual sterile fashion. All instruments were st erile. We began by placing the injection scope into the urethra and this is pas sed into the bladder with ease. 360 panendoscopy the bladder performance reve aled no tumors stones or defects. There was no trabeculation noted. We then be luis enrique to inject her Botox and were careful not to inject any large vessels. We us ed 200units of Botox injected in 4 rows of 5. Patient tolerated this well after wards there is noted to be hemostasis. The bladder was drained and patient was awoken from anesthesia. Patient was transferred to the PACU in stable condition . Dr. Durbin was present scrubbed and directed all james portions of procedu re. Estimated Blood Loss: minimal. Specimen(s) Removed/Disposition: none Maicol Marshall MD Pager [phone] ATTESTATION I performed this procedure with a resident. Staff name: Hermila Durbin MD documented in this encounter Plan of Treatment Care Team Description Date Type Specialty Rishi Cartwright MD [address] [facility] Ortho/Med Pavilion [address] [place] [address] [phone] Mixed urge and stress incontinence 08/12/2019 Hospital Encounter Rishi Cartwright MD [address] [facility] Ortho/Med Pavilion Lvl [address] [place] [address] [phone] CYSTOURETHROSCOPY WITH INJECTION FOR CHEMODENERVATION OF THE BLADDER (BOTOX 200 UNITS) 08/12/2019 Surgery documented as of this encounter Procedures Comments Procedure Name Priority Date/Time Associated Diagnosis POC GLUCOSE 02/08/2019 1:16 PM CDT CYSTOURETHROSCOPY WITH 02/08/2019 Urge incontinence INJECTION FOR 12:13 PM CDT CHEMODENERVATION OF THE BLADDER POC GLUCOSE 02/08/2019 11:21 AM CDT TELEMETRY STRIPS-SCAN 02/08/2019 12:00 AM CDT TELEMETRY STRIPS-SCAN 02/08/2019 12:00 AM CDT documented in this encounter Results * POC GLUCOSE (02/08/2019 1:16 PM CDT) Glucose, POC 109 (H) 70 - 100 MG/DL MAIN LAB Specimen Performing Organization Address [email or web address] Phone Number MAIN LAB [address] [place] [address] * POC GLUCOSE (02/08/2019 11:21 AM CDT) Glucose, POC 98 70 - 100 MG/DL MAIN LAB Specimen Performing Organization Address [facility] [[email or web address] Phone Number MAIN LAB [address] [place] [address] * TELEMETRY STRIPS-SCAN (02/08/2019 12:00 AM CDT) Narrative Performed At Ordered by an unspecified provider. * TELEMETRY STRIPS-SCAN (02/08/2019 12:00 AM CDT) Narrative Performed At Ordered by an unspecified provider. documented in this encounter Visit Diagnoses Diagnosis Mixed urge and stress incontinence (TRI) - Primary Mixed incontinence urge and stress (male)(female) documented in this encounter Administered Medications Action Date Dose Rate Site Medication Order MAR Action 02/08/2019 11:21 AM CDT 1,000 mL 20 mL/hr lactated ringers infusion Given - New 1,000 mL, 1,000 mL, Intravenous, at 20 Bag mL/hr, CONTINUOUS, Starting e 02/08/19 at 1100, Until Thu02/08/19 at 1609, Pre-Op lidocaine PF 1% (10 mg/mL) injection 0.1-2 mL 0.1-2 mL, Injection, NEEDED, Starting Thu02/08/19 at 1157, Until Thu02/08/19 at 1609, Other..., for IV insertion, Pre-Op documented in this encounter
--- OUTSIDE RECORDS SUMMARY | 2019-06-14 11:01 | XMS REPORT | Encounter Summary ---
Author Author [facility] Organization [facility] Address Unknown Phone Unavailable Care Team Providers Care Pantograph Setter Name Role Phone Osvaldo Palafox DO Unavailable Hermila Durbin MD Unavailable Rishi Cartwright MD Unavailable Donell Haque PA-C Unavailable Lizet Parsons RN Unavailable Unavailable Kristofer Dowling MD Unavailable Unavailable Harvinder Jj MD PCP Slade Merino DO 4 Reason for Visit * Auth/Cert Referred By Contact Referred To Contact Status Reason Specialty Diagnoses / Procedures Diagnoses Urge incontinence Urge incontinence [N39.41] P rocedures [place] CYSTOURETHROSCOPY INJ CHEMODENERVATION BLADDER CYSTOURETHROSCOPY WITH INJECTION FOR CHEMODENERVATION OF THE BLADDER (BOTOX 200 UNITS) Encounter Details Care Team Description Date Type Department Cheyenne Yeh SRNA 02/08/2019 Anesthesia [facility] OR [address] [address] Anesthesia Record Responsible Anesthesiologist Anesthesia Start Time Anesthesia Stop Time Procedure Name Bill Urias MD 02/08/19 1212 02/08/19 1259 CYSTOURETHROSCOPY WITH INJECTION FOR CHEMODENERVATION OF THE BLADDER (BOTOX 200 UNITS) (N/A ) Date Time Event Comment 1201 AN Equip Check 2018 1208 1211 Out of Pre Procedure 1212 Anes Start 1213 In Room 1213 An Start Data 1218 An Induction The patient was reevaluated immediately before moderate or deep sedation use and before anesthesia induction. 1218 Antibiotic Given 1221 An Intubation 1224 Anesthesia Ready 1232 Proc Start 1253 Quick Note PT COUGHING 1254 An Extubation 1256 an stop data 1258 Handoff to RN I completed my SBAR handoff to the receiving nurse. 1259 An Stop Meds Name Total midazolam (VERSED) 1 mg/mL injection 2 mg fentaNYL PF (SUBLIMAZE) injection 50 mcg lidocaine (2%) 200 mg/10mL Injection 80 mg syringe propofol (DIPRIVAN) 200 mg/ 20 mL 140 mg injection (VIAL) succinylcholine (ANECTINE) injection 100 mg (VIAL) ondansetron (ZOFRAN) injection 4 mg dextran 70/hypromellose (GENTEAL TEARS; 2 drop BION TEARS) ophthalmic solution sodium citrate/citric acid (BICITRA) 30 mL oral solution famotidine (PEPCID) injection 20 mg metoclopramide (REGLAN) injection 10 mg ceFAZolin (ANCEF) injection 2 g phenylephrine (FALLON-SYNEPHRINE) 10 mg in 1.15 mg sodium chloride 0.9% (NS) 250 mL IV drip (std conc) albuterol (VENTOLIN HFA, PROAIR HFA) 16 puff inhaler lactated ringers infusion 0 mL * Name O2 N2O Inspired N2O Sevoflurane Inspired Sevoflurane * No blood administrations on file. Removal Type Details Placement Wounds 09/16/16; 1145; Perineum; Surgical 09/16/16 1145 by Sommer, (NOT for Incision GIOVANI Malik Pressure Injuries) Wounds 03/17/17; 0939; Vagina; Surgical 03/17/17 0939 by Bhargav, (NOT for Incision; NONE Laine RN Pressure Injuries) Wounds 08/20/18; 0913; Lower, Right; Leg; 08/20/18 0913 by Srinivas, (NOT for Surgical Incision; GIOVANI Eduardo Pressure SUTURE,DERMABOND,BETADINE ADAPTIC, 4X4S, Injuries) POST-OP SOCK, COBAN Negative 10/15/18; Right; Leg 10/15/18 0000 by Pressure Rosaura Sanchez, GIOVANI Therapy Drain Wounds 10/15/18; 1711; Leg; Surgical Incision; 10/15/18 1711 by (NOT for WOUND VAC APPLIED, SOFTROLL,NIKOLAI Rosaura Sanchez, RN Pressure Injuries) Peripheral 02/08/19; 1126; RN; R; Mid; Forearm; 20 02/08/19 1126 by IV G; No; 1 Liset Jaeger RN Wounds 02/08/19; 1238; Perineum; Surgical 02/08/19 1238 by (NOT for Incision; PATIENT CLEAN AND DRIED. NO Danuta Sandoval RN Pressure DRESSINGS Injuries) 02/08/19 1254 by Rao, Cheyenne, SRNA ETT 02/08/19; 1221; Ventilated by mask (1); 02/08/19 1221 by Yeh, Direct laryngoscopy, Rapid sequence, Cheyenne, SRNA Stylet; Single-Lumen; 7mm; Mac; 3; Oral; 1-Full view of the glottis; 1 insertion attempt; Auscultation, ETCO2 Detector; 22 centimeters; ATRAUMATIC, ORAL MUCOSA UNCHANGED; 02/08/19; 1254 documented in this encounter Social History Date Tobacco [...] impairment: No documented as of this encounter OR Notes * Anesthesia Postprocedure Evaluation - Ross Myers, - 02/08/2019 1:49 PM CDT Post-Anesthesia Evaluation Name: Xin Fonseca : 1965 Age: 54 y.o. Sex: female Procedure Date: 02/08/2019 Procedure: Procedure(s) with comments: CYSTOURETHROSCOPY WITH INJECTION FOR CHEMODENERVATION OF THE BLADDER (BOTOX 200 UNITS) - CASE LENGTH 30 MINUTES Surgeon: Surgeon(s): Maicol Marshall MD Padmanabhan, Priya, MD Post-Anesthesia Vitals BP: 127/65 (02/08 1345) Temp: 37.2 C (99 F) (02/08 1300) Pulse: 64 (02/08 1345) Respirations: 22 PER MINUTE (02/08 1345) SpO2: 93 % (02/08 1345) O2 Delivery: Nasal Cannula (02/08 134) SpO2 Pulse: 64 (02/08 1345) Post Anesthesia Evaluation Note Evaluation location: Pre/Post Patient participation: recovered; patient participated in evaluation Level of consciousness: alert Pain score: 0 Pain management: adequate Hydration: normovolemia Temperature: 36.0C - 38.4C Airway patency: adequate Perioperative Events Perioperative events: no Post-op nausea and vomiting: no PONV Postoperative Status Cardiovascular status: hemodynamically stable Respiratory status: spontaneous ventilation and supplemental oxygen (2L NC at seline) Follow-up needed: none Perioperative Events Perioperative Event: No Emergency Case Activation: No Associated attestation - Naedr Jackson MD - 02/08/2019 2:22 PM CDT ATTESTATION Post-Anesthesia Evaluation Attestation: I reviewed and agree the indicated post- anesthesia care was provided. Staff name: Nader Jackson MD * Anesthesia Preprocedure Evaluation - Bill Urias MD - 02/08/2019 11:46 AM CDT Anesthesia Pre-Procedure Evaluation Name: Xin Fonseca : 1965 Age: 54 y.o. Sex: female Procedure Date: 02/08/2019 Procedure: Procedure(s) with comments: CYSTOURETHROSCOPY WITH INJECTION FOR CHEMODENERVATION OF THE BLADDER (BOTOX 200 UNITS) - CASE LENGTH 30 MINUTES Physical Assessment Vital Signs (last filed in past 24 hours): BP: 180/76 (02/08 1121) Temp: 36.4 C (97.5 F) (02/08 1121) Pulse: 70 (02/08 1121) Respirations: 20 PER MINUTE (02/08 1121) SpO2: 96 % (02/08 1121) O2 Delivery: None (Room Air) (02/08 1121) Height: 170.2 cm (67") (02/08 1121) Weight: 84.8 kg (187 lb) (02/08 1121) Patient History Allergies Allergen Reactions Asa [Aspirin] NAUSEA AND VOMITING Can tolerate baby aspirin Codeine HIVES Pcn [Penicillins] EDEMA Patient states tolerates Cephalexin Peanut HIVES Benazepril SEE COMMENTS Patient states, "I get awful sick" Current Medications Medication Directions albuterol (VENTOLIN HFA, PROAIR HFA) 90 mcg/actuation inhaler Inhale 2 Puffs by mouth every 4 hours as needed. albuterol 0.5% (PROVENTIL; VENTOLIN) 2.5 mg/0.5 mL nebu nebulizer solution Inhal e 2.5 mg solution as directed four times [...] nasal spray Apply 1 spray to each nostril as directed daily as needed. gabapentin (NEURONTIN) 300 mg capsule Take two capsules by mouth three times narendra ly. HYDROcodone/acetaminophen(+) (NORCO) 10/325 mg tablet Take one tablet by mouth e very 6 hours as needed for Pain Max 8 tabs/day levothyroxine (SYNTHROID) 50 mcg tablet Take 50 mcg by mouth daily 30 minutes be fore breakfast. metFORMIN (GLUCOPHAGE) 500 mg tablet Take 500 mg by mouth twice daily with meals . metoprolol tartrate (LOPRESSOR) 25 mg tablet Take 25 mg by mouth twice daily. montelukast (SINGULAIR) 10 mg tablet Take 10 mg by mouth at bedtime daily. mupirocin (BACTROBAN) 2 % topical ointment APPLY TO AFFECTED AREA THREE TIMES DA HU naproxen (NAPROSYN) 500 mg tablet Take 500 mg by mouth twice daily as needed. nitroglycerin (NITROSTAT) 0.[address] 0.4 mg under tongue every 5 minute s as needed. oxybutynin XL (DITROPAN XL) 15 mg tablet Take one tablet by mouth daily. Do not cut/ crush/ chew pantoprazole DR (PROTONIX) 40 mg tablet Take 40 mg by mouth daily. sodium hypochlorite (DAKIN'S SOLUTION) 0.25 % topical solution Apply topically to affected area daily. tiotropium (SPIRIVA WITH HANDIHALER) 18 mcg capsule for inhaler Place 18 mcg int o inhaler and inhale into lungs as directed daily as needed. traMADol (ULTRAM) 50 mg tablet Take one tablet by mouth three times weekly. With dressing changes traZODone (DESYREL) 100 mg tablet Take 100 mg by mouth at bedtime daily. trimethoprim/sulfamethoxazole (BACTRIM DS) 160/800 mg tablet Take one tablet by mouth twice daily. Past Medical History: Diagnosis Date Arthritis Asthma Back pain CAD (coronary artery disease) Carotid artery disease (HCC) Chronic female pelvic pain Chronic pain COPD (chronic obstructive pulmonary disease) ([facility]) Depression DM (diabetes mellitus) (HCC) Dyslipidemia GERD [...] (200 UNITS) performed by Hermila gordillo MD [place] CYSTOURETHROSCOPY INJ CHEMODENERVATION BLADDER N/A 09/16/2016 CYSTOSCOPY BOTOX INJECTIONS (200 UNITS) performed by Hermila Durbin MD at [facility] OR/Periop ABDOMINAL AORTIC ANEURYSM REPAIR, OPEN 2017 [place] CYSTOURETHROSCOPY INJ CHEMODENERVATION BLADDER N/A 03/17/2017 CYSTOSCOPY WITH INTRAVESICAL BLADDER BOTOX INJECTIONS (200 UNITS) performed by Hermila Durbin MD at [facility] OR/Periop LEG AMPUTATION BELOW KNEE Right 08/20/2018 RIGHT BELOW KNEE AMPUTATION performed by [facility] OR/Periop INCISION AND DRAINAGE Right 10/15/2018 INCISION AND DRAINAGE POSTOPERATIVE WOUND INFECTION RIGHT BELOW THE KNEE AMPUTA TION STUMP WITH APPLICATION OF WOUND VAC performed by Pradip Jaramillo MD at [facility] R/Periop CARPAL TUNNEL RELEASE Bilateral unsure PARTIAL HYSTERECTOMY unsure Social History Tobacco Use Smoking status: Former Smoker Packs/day: 3.00 Years: 30.00 Pack years: 90.00 Types: Cigarettes Last attempt to quit: 07/28/2018 Years since quittin.5 Smokeless tobacco: Never Used Tobacco comment: decreased to .5ppd since 2012 Substance Use Topics Alcohol use: No Review of Systems/Medical History Patient summary reviewed Nursing notes reviewed Pertinent labs reviewed PONV Screening: Female gender, Non-smoker and Postoperative opioids No history of anesthetic complications No family history of anesthetic complications Airway - negative Pulmonary Current smoker (Last smoked: 02/07/19); patient did not smoke on day of surge ry Asthma ( uses rescue inhaler BID) COPD (Reports compliance with inhalers), moderate No recent URI (Smoker's cough) Shortness of breath Home oxygen use (Uses 2L/nc at HS) No sleep apnea Cardiovascular Recent diagnostic studies: ECG 08/09/18: Sinus rhythm Exercise tolerance: <4 METS Beta Georgiana therapy: Yes Beta blockers within 24 hours: Yes Hypertension, poorly controlled Past NV (Unsure of time line), > 6 months Coronary artery disease PTCA (Unsure how long ago): drug-eluting stent PVD (Recent AAA repair) Hyperlipidemia (taking a statin) Reports evaluated earlier this year by her gastroenterologist. GI/Hepatic/Renal GERD ( taking PPI), well controlled No hx of liver disease No renal disease Neuro/Psych No seizures No CVA Headaches (migraines, once in a while) Neuropathy (DM neuropathy treated with gbabpentin) Psychiatric history Depression (stable) Musculoskeletal Back pain Arthritis Right BKA Endocrine/Other Diabetes (using metformin), type 2 Hypothyroidism (taking levothyroxine) Anemia (reported borderline anemia) Physical Exam Airway Findings Mallampati: II TM distance: >3 FB Neck ROM: full Mouth opening: good Airway patency: adequate Dental Findings: Cardiovascular Findings: Rhythm: regular Rate: normal No murmur, no carotid bruit Pulmonary Findings: Wheezes. Comments: Minor wheezing Neurological Findings: Normal mental status Diagnostic Tests Hematology: Lab Results Component Value [...] Date PTT 29.8 08/30/2014 INR 1.0 08/30/2014 T&C on DOS Anesthesia Plan ASA score: 3 Plan: general Induction method: intravenous NPO status: acceptable Informed Consent Anesthetic plan and risks discussed with patient. Use of blood products discussed with patient Blood Consent: consented Plan discussed with: anesthesiologist, [employer]OUTE SALES PERSON and SRNA. Addendum: Cardiac cath report 02/2018 -- done for EF 33% on 11/2017, MUGA 12/21/17 EF 48%, c/o palpitations and had brief runs of SVT, wide complex tachycardia. Ca th showed mild CAD, patent stent in mid RCAEF 50-55%, conservative management. Pulmonology note , COPD nocturnal hypoxemia, sleep study did not exhibit evidenc e of NIKKI, but + nocturnal hypoxemia with 33 minutes of sleep at or below 88% sat s. documented in this encounter Plan of Treatment Care Team Description Date Type Specialty Rishi Cartwright MD [address] [facility] [address] [place] [address] [phone] Mixed urge and stress incontinence 08/12/2019 Hospital Encounter Rishi Cartwright MD [address] [facility] [address] [place] [address] [phone] CYSTOURETHROSCOPY WITH INJECTION FOR CHEMODENERVATION OF THE BLADDER (BOTOX 200 UNITS) 08/12/2019 Surgery documented as of this encounter Visit Diagnoses Not on filedocumented in this encounter Administered Medications Action Date Dose Rate Site Medication Order MAR Action 02/08/2019 12:40 PM CDT 8 puffs albuterol (PROAIR HFA, VENTOLIN HFA, or Given PROVENTIL HFA) inhaler INTRA-PROCEDURE MED, Starting Thu02/08/19 at 1240, Until 02/08/19 at 1303, Anesthesia Intra-op 6 puffs Given 02/08/2019 12:22 PM CDT 2 puffs Given 02/08/2019 12:17 PM CDT 02/08/2019 12:18 PM CDT 2 g ceFAZolin (ANCEF) injection Given INTRA-PROCEDURE MED, Starting 02/08/19 at 1218, Until 02/08/19 at 1303, Anesthesia Intra-op 02/08/2019 12:18 PM CDT 2 drops dextran 70/hypromellose (GENTEAL TEARS; Given BION TEARS) ophthalmic solution INTRA-PROCEDURE MED, Starting 02/08/19 at 1218, Until 02/08/19 at 1303, Anesthesia Intra-op 02/08/2019 11:25 AM CDT 20 mg famotidine (PEPCID) injection Given INTRA-PROCEDURE MED, Starting 02/08/19 at 1125, Until 02/08/19 at 1303, Anesthesia Intra-op 02/08/2019 12:20 PM CDT 25 mcg fentaNYL citrate PF (SUBLIMAZE) Given injection INTRA-PROCEDURE MED, Starting 02/08/19 at 1218, Until 02/08/19 at 1303, Anesthesia Intra-op 25 mcg Given 02/08/2019 12:18 PM CDT 02/08/2019 12:18 PM CDT 80 mg lidocaine (PF) injection Given INTRA-PROCEDURE MED, Starting 02/08/19 at 1218, Until 02/08/19 at 1303, Anesthesia Intra-op 02/08/2019 11:25 AM CDT 10 mg metoclopramide (REGLAN) injection Given INTRA-PROCEDURE MED, Starting 02/08/19 at 1125, Until 02/08/19 at 1303, Anesthesia Intra-op 02/08/2019 12:10 PM CDT 2 mg midazolam (VERSED) injection Given Intravenous, INTRA-PROCEDURE MED, Starting 02/08/19 at 1210, Until 02/08/19 at 1303, Anesthesia Intra-op 02/08/2019 12:18 PM CDT 4 mg ondansetron (ZOFRAN) injection Given Intravenous, INTRA-PROCEDURE MED, Starting 02/08/19 at 1218, Until Thu02/08/19 at 1303, Anesthesia Intra-op 02/08/2019 12:25 PM CDT 0.4 mcg/kg/min 50.9 mL/hr phenylephrine (FALLON-SYNEPHRINE) 10 mg in Given - New sodium chloride 0.9% (NS) 250 mL IV drip Bag (std conc) 250 mL, INTRA-PROCEDURE MED(CONT), Starting Thu02/08/19 at 1225, Until Thu02/08/19 at 1303, Anesthesia Intra-op 02/08/2019 12:36 PM CDT 30 mg propofol (DIPRIVAN) injection Given INTRA-PROCEDURE MED, Starting Thu02/08/19 at 1218, Until Thu02/08/19 at 1303, Anesthesia Intra-op 110 mg Given 02/08/2019 12:18 PM CDT 02/08/2019 11:25 AM CDT 30 mL sodium citrate/citric acid (BICITRA) Given oral solution INTRA-PROCEDURE MED, Starting Thu02/08/19 at 1125, Until Thu02/08/19 at 1303, Anesthesia Intra-op 02/08/2019 12:18 PM CDT 100 mg succinylcholine (ANECTINE) injection Given Intravenous, INTRA-PROCEDURE MED, Starting Thu02/08/19 at 1218, Until Thu02/08/19 at 1303, Anesthesia Intra-op documented in this encounter
--- OUTSIDE RECORDS SUMMARY | 2019-06-14 11:01 | XMS REPORT | Encounter Summary ---
Author Author [facility] Organization [facility] Address Unknown Phone Unavailable Care Team Providers Care Human Resource Internship Name Role Phone Osvaldo Palafox DO Unavailable Hermila Durbin MD Unavailable Rishi Cartwright MD Unavailable Donell Haque PA-C Unavailable Lizet Parsons RN Unavailable Unavailable Kristofer Dowling MD Unavailable Unavailable Harvinder Jj MD PCP Slade Merino DO 4 Reason for Visit * Auth/Cert Referred By Contact Referred To Contact Status Reason Specialty Diagnoses / Procedures Diagnoses Urge incontinence Urge incontinence [N39.41] P rocedures [place] CYSTOURETHROSCOPY INJ CHEMODENERVATION BLADDER CYSTOURETHROSCOPY WITH INJECTION FOR CHEMODENERVATION OF THE BLADDER (BOTOX 200 UNITS) Encounter Details Care Team Description Date Type Department Hermila Durbin MD [address] Orth[facility] [address] [place] [address] CYSTOURETHROSCOPY WITH INJECTION FOR CHEMODENERVATION OF THE BLADDER (BOTOX 200 UNITS) 02/08/2019 Surgery [facility] - [facility] OR [address] [address] Social History Date Tobacco Use [...] Kirti Olivas, RN - 01/19/2019 11:24 AM EDUCATIONAL RESOURCE COORDINATOR GENERAL INFORMATION Before you come to the hospital Make arrangements for a responsible adult to drive you home and stay with you for 24 hours following surgery. Bath/Shower Instructions {BATH/SHOWER INSTRUCTIONS:83192} Leave money, credit cards, jewelry, and any other valuables at home. [facility] is not responsible for the loss or breakage of persona l items. Remove nail telugu, makeup and all jewelry (including piercings) before comin g to the hospital. The morning of your procedure: brush your teeth and tongue do not smoke do not shave the area where you will have surgery What to bring to the hospital ID/ Insurance Card Lapping Machine Set Up Operator card Official documents for legal guardianship Copy of your Living Will, Advanced Directives, and/or Durable Power of Attorn ey Small bag with a few personal belongings {OTHER PERSONAL ITEMS:11805} Dress in clean, loose, comfortable clothing Eating or drinking before surgery {FOOD/DRINK:67558} Other instructions: Other instructions Notify your surgeon if: there is a possibility that you are you become ill with a cough, fever, sore throat, nausea, vomiting or flu-like symptoms you have any open wounds/sores that are red, painful, draining, or are new si nce you last saw the doctor you need to cancel your procedure {ARRIVAL TIME:} Notify us at {SURGERY CONTACT PHONE NUMBERS:[id number]} if you need to cancel your procedure if you are going to be late Arrival at the hospital ATIONAL RESOURCE COORDINATOR * Pre-Anesthesia Medication Instructions* Reji Vazquez, PHARMD - 01/20/2019 12:46 PM EDUCATIONAL RESOURCE COORDINATOR YOUR MEDICATIONS: albuterol (VENTOLIN HFA, PROAIR HFA) [...] any medicine updates o r questions. E-mail: [email or web address] Before going home from the hospital, please ask your doctor when you should re-s tart your medicines that were stopped before surgery. ATIONAL RESOURCE COORDINATOR documented in this encounter Medications at Time [...] Reji Vazquez, PHARMD - 01/20/2019 12:49 PM EDUCATIONAL RESOURCE COORDINATOR PAC Pharmacist Medication Plan Note: We were consulted to determine a plan for Xin Flores Raymundo's Aspirin 81mg for up coming surgery on 02/08/2019. Medication reconciliation and all remaining medic ation instructions will be completed by our triage nurse as usual. Per Yefri MATUTE with Dr. Jj, Aspirin may be held for 7 days prior to the proced ure. The plan above was communicated to the patient who verbalized understanding. Reji Vazquez PHARMD ATIONAL RESOURCE COORDINATOR * Kirti Olivas RN - 01/19/2019 11:30 AM EDUCATIONAL RESOURCE COORDINATOR PAC phone triage assessment completed with pt [...] understanding of instructions and declined a copy. ATIONAL RESOURCE COORDINATOR documented in this encounter H&P Notes * [...] 24 hours): POC Glucose (Download): 98 (02/08/19 1123) I have examined the patient, and there are no significant changes in their condi tion, from the previous H&P performed on 01/10/19. Maicol Marshall MD Pager [phone] ATTESTATION I personally performed the james portions of the E/M visit, discussed case with re sident and concur with resident documentation of history, physical exam, assessm ent, and treatment plan unless otherwise noted. Staff name: Hermila Durbin MD * Hermila Durbin MD - 01/10/2019 2:45 PM EDUCATIONAL RESOURCE COORDINATOR Date of Service: 01/10/2019 Subjective: History of [...] Chronic pain COPD (chronic obstructive pulmonary disease) ([facility]) Depression DM (diabetes mellitus) ([facility]) Dyslipidemia GERD (gastroesophageal reflux disease) Hayfever HTN [...] (200 UNITS) performed by Hermila gordillo MD [place] CYSTOURETHROSCOPY INJ CHEMODENERVATION BLADDER N/A 09/16/2016 CYSTOSCOPY BOTOX INJECTIONS (200 UNITS) performed by Hermila Durbin MD at [facility] OR/Periop ABDOMINAL AORTIC ANEURYSM REPAIR, OPEN 2017 [place] CYSTOURETHROSCOPY INJ CHEMODENERVATION BLADDER N/A 03/17/2017 CYSTOSCOPY [...] mg by mouth twice daily with m easherine. metoprolol tartrate (LOPRESSOR) 25 mg tablet Take [...] otherwise noted. Staff name: Hermila Durbin MD ATIONAL RESOURCE COORDINATOR documented in this encounter Miscellaneous Notes * [...] Specimen(s) Removed/Disposition: none Maicol Marshall MD Pager [phone] ATTESTATION I performed this procedure with a resident. Staff name: Hermila Durbin MD documented in this encounter Plan of Treatment Care Team Description Date Type Specialty Rishi Cartwright MD [address] [facility] [address] [place] [address] [phone] Mixed urge and stress incontinence 08/12/2019 Hospital Encounter Rishi Cartwright MD [address] [facility] [address] [place] [address] [phone] CYSTOURETHROSCOPY WITH INJECTION FOR CHEMODENERVATION OF THE [...] MG/DL MAIN LAB Specimen Performing Organization Address [facility] Phone Number MA[facility] LAB [address] [place] [address] * POC GLUCOSE (02/08/2019 11:21 AM CDT) Glucose, POC 98 70 - 100 MG/DL MAIN LAB Specimen Performing Organization Address [facility] Phone Number MA[facility] LAB [address] [place] [address] * TELEMETRY STRIPS-SCAN (02/08/2019 12:00 AM CDT) Narrative Performed At Ordered by an unspecified provider. * TELEMETRY STRIPS-SCAN (02/08/2019 12:00 AM CDT) Narrative Performed At Ordered by an unspecified provider. documented in this encounter Visit Diagnoses Diagnosis Urge incontinence documented in this encounter Administered Medications Action Date Dose Rate Site Medication Order MAR Action 02/08/2019 11:21 AM CDT 1,000 mL 20 mL/hr lactated ringers infusion Given - New 1,000 mL, 1,000 mL, Intravenous, at 20 Bag mL/hr, CONTINUOUS, Starting e 02/08/19 at 1100, Until Tu02/08/19 at 1609, Pre-Op lidocaine PF 1% (10 mg/mL) injection 0.1-2 mL 0.1-2 mL, Injection, NEEDED, Starting e 02/08/19 at 1157, Until Thu02/08/19 at 1609, Other..., for IV insertion, Pre-Op 02/08/2019 12:38 PM CDT 200 Units ONAbotulinum toxin A (BOTOX) injection Given INTRA-PROCEDURE MED, Starting Thu02/08/19 at 1238, Until Thu02/08/19 at 1257, Intra-op documented in this encounter
--- OUTSIDE RECORDS SUMMARY | 2019-06-14 11:01 | XMS REPORT | Encounter Summary ---
Author Author [facility] Organization [facility] Address Unknown Phone Unavailable Care Team Providers Care Silver Designer Name Role Phone Osvaldo Palafox Unavailable Hermila Durbin MD Unavailable Rishi Cartwright MD Unavailable Donell Haque PA-C Unavailable Lizet Parsons RN Unavailable Unavailable Kristofer Dowling MD Unavailable Unavailable Harvinder Jj MD PCP Slade Merino DO 4 Reason for Visit * Reason Comments Medication Question Encounter Details Care Team Description Date Type Department Hermila Durbin MD [address] [facility] [address] [place] [address] Medication Question 01/12/2019 Telephone [facility] [address] [place] [address] Social History Date Tobacco Use [...] encounter Miscellaneous Notes * Telephone Encounter - Brefina Kelly - 01/14/2019 1:54 PM ETHYLENE COMPRESSOR OPERATOR Patient is calling still having symptoms of UTI. States that she is having pain during urination and frequency. Her UC came back contaminated. I offered to fannie young her a UC order for her to take to a lab that is close to her but she states th at she does not have a car and wont be able to get around. Would you like to go ahead and treat her symptoms or what else can I offer her ? LENE COMPRESSOR OPERATOR * Telephone Encounter - Cece Frances - 01/12/2019 4:27 PM ETHYLENE COMPRESSOR OPERATOR Pt called today because she wants to know what to do about her oxybutynin. She h as been taking 15mg dose, but when she got her new Rx is has 10mg dose. Pt doesn 't know why it would go down, because she did not think the 15 mg was working. P t would like a call back on if the new dose is correct or not. Cece Real LENE COMPRESSOR OPERATOR documented in this encounter Plan of Treatment Care Team Description Date Type Specialty Rishi Cartwright MD [address] [facility] [address] [place] [address] [phone] Mixed urge and stress incontinence 08/12/2019 Hospital Encounter Rishi Cartwright MD [address] [facility] [address] [place] [address] [phone] CYSTOURETHROSCOPY WITH INJECTION FOR CHEMODENERVATION OF THE BLADDER (BOTOX 200 UNITS) 08/12/2019 Surgery documented as of this encounter Visit Diagnoses Not on filedocumented in this encounter
--- OUTSIDE RECORDS SUMMARY | 2019-06-14 11:01 | XMS REPORT | Encounter Summary ---
Author Author [facility] Organization [facility] Address Unknown Phone Unavailable Care Team Providers Care Juvenile Corrections Officer Name Role Phone AnaliaOsvaldo echols Unavailable Hermila Durbin MD Unavailable Rishi Cartwright MD Unavailable Donell Haque PA-C Unavailable Lizet Parsons RN Unavailable Unavailable Kristofer Dowling MD Unavailable Unavailable Harvinder Jj MD PCP Slade Merino DO 4 Reason for Visit * Reason Comments General Question Encounter Details Care Team Description Date Type Department Rishi Cartwright MD [address] [facility] [address] [place] [address] General Question 01/14/2019 Telephone [facility] [address] [place] [address] Social History Date Tobacco Use [...] encounter Miscellaneous Notes * Telephone Encounter - Simon Moreland MA - 01/14/2019 2:21 PM BADGER DISTILLER OPERATOR Pt called, asking us to call her back. Called her back and apparently her pharmacy has not received the Oxybutynin 15mg tabs that were send today. Told her I would be calling her pharmacy to find out what is going on. Called pharmacy, and they have filled it and are going to deliver it soon. Called pt back and told them that the pharmacy has received it and they are deli vering it soon. Pt verbalized understanding. ER DISTILLER OPERATOR documented in this encounter Plan of Treatment Care Team Description Date Type Specialty Rishi Cartwright MD [address] [facility] L[address] [place] [address] [phone] Mixed urge and stress incontinence 08/12/2019 Hospital Encounter Rishi Cartwright MD [address] [facility] L[address] [place] [address] CYSTOURETHROSCOPY WITH INJECTION FOR CHEMODENERVATION OF THE BLADDER (BOTOX 200 UNITS) 08/12/2019 Surgery documented as of this encounter Visit Diagnoses Not on filedocumented in this encounter
--- NOTE | 2019-06-14 11:02 | ED General ---
General Stated Complaint: GENERALIZED WEAKNESS Source of Information: Patient, EMS Exam Limitations: No Limitations History of Present Illness Date Seen by Provider: Jun 14, 2019 Time Seen by Provider: 11:00 Initial Comments To ER with a three-day history of generalized weakness, shortness of breath, lower abdominal pain, diarrhea. She does have COPD and wears oxygen [id number]. 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 That was done in 2018. She also arrives with a fever of 101.8. Timing/Duration: 2-3 Days Severity: Moderate Associated Systoms: Cough, Fever/Chills, Malaise, Nausea/Vomiting Allergies and Home Medications Allergies Coded Allergies: Penicillins (Verified Allergy, Mild, Hives, 07/23/18) Spuefux-Gmw-Xzh Reductase Inhibitor (Verified Allergy, Unknown, 07/23/18) amlodipine besylate (Verified Allergy, Unknown, 07/23/18) benazepril HCl (Verified Allergy, Unknown, 07/23/18) aspirin (Verified Adverse Reaction, Mild, Nausea, 07/23/18) codeine (Verified Adverse Reaction, Mild, Nausea, 07/23/18) tramadol (Verified Adverse Reaction, Mild, N/V, 07/23/18) Home Medications Acetaminophen 500 Mg Tablet, 1,000 MG PO Q8H PRN for PAIN-MODERATE, (Reported) Albuterol Sulfate 1 Puff Puff, 2 PUFF IH Q4H PRN for WHEEZING, (Reported) 1 PUFF = 90 MCG Albuterol/Ipratropium 4 Gm Aero, 2 PUFF IH QID, (Reported) Amlodipine Besylate 5 Mg Tablet, 5 MG PO DAILY, (Reported) Atorvastatin Calcium 40 Mg Tablet, 40 MG PO HS, (Reported) Budesonide/Formoterol Fumarate 10.2 Gm Hfa.aer.ad, 2 PUFF IH BID, (Reported) Cetirizine HCl 10 Mg Tablet, 10 MG PO DAILY, (Reported) Cholestyramine/Aspartame 4 Gm Powd.pack, 4 GM PO 0500,1400,1700,2200 Prescribed by: ANALY BAPTISTE on 12/01/18 0905 Cyclobenzaprine HCl 10 Mg Tablet, 10 MG PO TID PRN for MUSCLE SPASMS, (Reported) Fluoxetine HCl 40 Mg Capsule, 40 MG PO DAILY, (Reported) Gabapentin 300 Mg Capsule, 600 MG PO TID, (Reported) take 2 (300mg) tabs Levothyroxine Sodium 50 Mcg Tablet, 50 MCG PO DAILY, (Reported) Metformin HCl 500 Mg Tablet, 500 MG PO BID, (Reported) Metoprolol Tartrate 25 Mg Tablet, 25 MG PO BID, (Reported) Montelukast Sodium 10 Mg Tablet, 10 MG PO 1700, (Reported) Pantoprazole Sodium 40 Mg Tablet.dr, 40 MG PO DAILY, (Reported) Trazodone HCl 100 Mg Tablet, 100 MG PO HS, (Reported) Umeclidinium Brm/Vilanterol Tr 1 Each Blst.w.dev, 1 PUFF IH BID, (Reported) Patient Home Medication List Home Medication List Reviewed: Yes Review of Systems Review of Systems Constitutional: see HPI, chills, fever EENTM: see HPI Respiratory: see HPI, cough Cardiovascular: no symptoms reported Gastrointestinal: abdominal pain, diarrhea Genitourinary: no symptoms reported Musculoskeletal: no symptoms reported Skin: no symptoms reported Psychiatric/Neurological: No Symptoms Reported Hematologic/Lymphatic: No Symptoms Reported Immunological/Allergic: no symptoms reported Past Kjkurkr-Vojvrs-Aoxesd Hx Patient Social History Type Used: Cigarettes Former Smoker, Quit: Jun 27, 2018 Recent Hopitalizations: No Immunizations Up To Date Tetanus Booster (TDap): Less than 5yrs Date of Pneumonia Vaccine: Jul 10, 2011 Date of Influenza Vaccine: Aug 20, 2018 Seasonal Allergies Seasonal Allergies: Yes Past Medical History Surgeries: Yes (BROKEN HAND AND ANKLE, bladder stretched, bilat CTR) Bladder Surgery, Cardiac, Coronary Stent, Hysterectomy, Orthopedic, Vascular Surgery Respiratory: Yes ( O2 2L/NC @ NOC) Asthma, Chronic Bronchitis, COPD, Emphysema Currently Using CPAP: No Currently Using BIPAP: No Cardiac: Yes (CARDIAC CATHS-STENT X 1; LBBB) Aneurysm, Coronary Artery Disease, High Cholesterol, Hypertension Neurological: Yes Headaches /Migraines 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 Disorders: No 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 Disorders: Denies 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: Hysterectomy, Menopausal Sexually Transmitted Disease: No HIV/AIDS: No Genitourinary: Yes (BLADDER SUSPENSION) UTI-Chronic Gastrointestinal: Yes (ESOPHAGEAL STRICTURES/DILATIONS) Gastroesophageal Reflux Musculoskeletal: Yes Arthritis, Back Injury, Chronic Back Pain, Fractures Endocrine: Yes Diabetes, Non-Insulin dep Loss of Vision: Bilateral Hearing Impairment: Denies Cancer: No Psychosocial: Yes Anxiety, Depression Integumentary: No Blood Disorders: No Adverse Reaction/Blood Tranf: No (N/A) Family Medical History Arthritis Diabetes mellitus Hypertension No Pertinent Family Hx Patient reports she does not know Physical Exam Vital Signs Vital Signs - First Documented 06/14/19 06/14/19 11:12 11:21 Temp 101.0 Pulse 107 Resp 18 B/P (MAP) 141/84 (103) Pulse Ox 95 O2 Delivery Nasal Cannula O2 Flow Rate 4.00 Capillary Refill : Height, Weight, BMI Height: 5'7.00" Weight: 182lbs. 4.0oz. 82.969456ye; 28.5 BMI Method:Estimated General Appearance: No Apparent Distress, WD/WN, Chronically ill, Other (discussed I discussed CODE STATUS with her. She does not want to be intubated if necessary nor does she want CPR. We will make her a DO NOT RESUSCITATE/DO NOT INTUBATE status.) Eyes: Bilateral Eye Normal Inspection, Bilateral Eye PERRL, Bilateral Eye EOMI Neck: Full Range of Motion, Normal Inspection Respiratory: No Accessory Muscle Use, No Respiratory Distress, Decreased Breath Sounds, Rhonci Cardiovascular: Regular Rate, Rhythm, Normal Peripheral Pulses Gastrointestinal: Normal Bowel Sounds, Soft Extremity: Normal Capillary Refill, Normal Inspection Neurologic/Psychiatric: Alert, Oriented x3 Skin: Normal Color, Warm/Dry Focused Exam Lactate Level 06/14/19 11:02: Lactic Acid Level 2.51*H 06/14/19 13:18: Lactic Acid Level 2.95*H Lactic Acid Level Laboratory Tests Test 06/14/19 11:02 06/14/19 13:18 Lactic Acid Level 2.51 MMOL/L (0.50-2.00) *H 2.95 MMOL/L (0.50-2.00) *H Progress/Results/Core Measures Suspected Sepsis SIRS Temperature: Pulse: Respiratory Rate: Laboratory Tests 06/14/19 11:02: White Blood Count 26.2H Blood Pressure / Mean: 06/14/19 11:02: Lactic Acid Level 2.51*H 06/14/19 13:18: Lactic Acid Level 2.95*H Laboratory Tests 06/14/19 11:02: Creatinine 1.12, INR Comment 1.1, Platelet Count 358, Total Bilirubin 0.4 Results/Orders Lab Results Laboratory Tests Test 06/14/19 11:02 06/14/19 11:10 06/14/19 13:18 Range/Units White Blood Count 26.2 H 4.3-11.0 10^3/uL Red Blood Count 4.52 4.35-5.85 10^6/uL Hemoglobin 8.7 L 11.5-16.0 G/DL Hematocrit 32 L 35-52 % Mean Corpuscular Volume 71 L 80-99 FL Mean Corpuscular Hemoglobin 19 L 25-34 PG Mean Corpuscular Hemoglobin Concent 27 L 32-36 G/DL Red Cell Distribution Width 18.9 H 10.0-14.5 % Platelet Count 358 130-400 10^3/uL Mean Platelet Volume 11.1 H 7.4-10.4 FL Neutrophils (%) (Auto) 88 H 42-75 % Lymphocytes (%) (Auto) 6 L 12-44 % Monocytes (%) (Auto) 6 0-12 % Eosinophils (%) (Auto) 1 0-10 % Basophils (%) (Auto) 0 0-10 % Neutrophils # (Auto) 23.0 H 1.8-7.8 X 10^3 Lymphocytes # (Auto) 1.5 1.0-4.0 X 10^3 Monocytes # (Auto) 1.5 H 0.0-1.0 X 10^3 Eosinophils # (Auto) 0.2 0.0-0.3 10^3/uL Basophils # (Auto) 0.1 0.0-0.1 10^3/uL Neutrophils % (Manual) 91 % Lymphocytes % (Manual) 2 % Monocytes % (Manual) 3 % Eosinophils % (Manual) 1 % Basophils % (Manual) 0 % Band Neutrophils 3 % Polychromasia SLIGHT Hypochromasia SLIGHT Poikilocytosis SLIGHT Anisocytosis MODERATE Microcytosis MODERATE Elliptocytes SLIGHT Prothrombin Time 14.1 12.2-14.7 SEC INR Comment 1.1 0.8-1.4 Activated Partial Thromboplast Time 32 24-35 SEC Sodium Level 137 135-145 MMOL/L Potassium Level 4.2 3.6-5.0 MMOL/L Chloride Level 108 H 98-107 MMOL/L Carbon Dioxide Level 19 L 21-32 MMOL/L Anion Gap 10 5-14 MMOL/L Blood Urea Nitrogen 19 H 7-18 MG/DL Creatinine 1.12 0.60-1.30 MG/DL Estimat Glomerular Filtration Rate 51 BUN/Creatinine Ratio 17 Glucose Level 159 H 70-105 MG/DL Lactic Acid Level 2.51 *H 2.95 *H 0.50-2.00 MMOL/L Calcium Level 9.0 8.5-10.1 MG/DL Corrected Calcium 9.6 8.5-10.1 MG/DL Total Bilirubin 0.4 0.1-1.0 MG/DL Aspartate Amino Transf (AST/SGOT) 12 5-34 U/L Alanine Aminotransferase (ALT/SGPT) 9 0-55 U/L Alkaline Phosphatase 115 40-136 U/L Total Protein 6.8 6.4-8.2 GM/DL Albumin 3.3 3.2-4.5 GM/DL Urine Color YELLOW Urine Clarity VERY CLOUDY H Urine pH 6 5-9 Urine Specific Mark Center 1.015 L 1.016-1.022 Urine Protein 2+ H NEGATIVE Urine Glucose (UA) NEGATIVE NEGATIVE Urine Ketones NEGATIVE NEGATIVE Urine Nitrite NEGATIVE NEGATIVE Urine Bilirubin NEGATIVE NEGATIVE Urine Urobilinogen NORMAL NORMAL MG/DL Urine Leukocyte Esterase 3+ H NEGATIVE Urine RBC (Auto) 4+ H NEGATIVE Urine RBC 5-10 H /HPF Urine WBC >100 H /HPF Urine Squamous Epithelial Cells 2-5 /HPF Urine Crystals NONE /LPF Urine Bacteria LARGE H /HPF Urine Casts NONE /LPF Urine Mucus NEGATIVE /LPF Urine Culture Indicated CULTURE PENDING Urine Opiates Screen NEGATIVE NEGATIVE Urine Oxycodone Screen NEGATIVE NEGATIVE Urine Methadone Screen NEGATIVE NEGATIVE Urine Propoxyphene Screen NEGATIVE NEGATIVE Urine Barbiturates Screen NEGATIVE NEGATIVE Ur Tricyclic Antidepressants Screen NEGATIVE NEGATIVE Urine Phencyclidine Screen NEGATIVE NEGATIVE Urine Amphetamines Screen NEGATIVE NEGATIVE Urine Methamphetamines Screen NEGATIVE NEGATIVE Urine Benzodiazepines Screen NEGATIVE NEGATIVE Urine Cocaine Screen NEGATIVE NEGATIVE Urine Cannabinoids Screen NEGATIVE NEGATIVE My Orders Orders - THOMPSON QURESHI APRN Cbc With Automated Diff (06/14/19 10:58) Comprehensive Metabolic Panel (06/14/19 10:58) Blood Culture (06/14/19 10:58) Sputum Culture (06/14/19 10:58) Urinalysis (06/14/19 10:58) Urine Culture (06/14/19 10:58) Protime With Inr (06/14/19 10:58) Partial Thromboplastin Time (06/14/19 10:58) Chest 1 View, Ap/Pa Only (06/14/19 10:58) Ed Iv/Invasive Line Start (06/14/19 10:58) Vital Signs Adult Sepsis Patie Q15M (06/14/19 10:58) O2 (06/14/19 10:58) Remove Rings In Anticipation O (06/14/19 10:58) Lactic Acid Analyzer (06/14/19 10:58) Lactated Ringers (Lr 1000 Ml Iv Solution (06/14/19 10:58) Arterial Blood Gas (06/14/19 10:58) Ct Abdomen/Pelvis W (06/14/19 10:58) Fentanyl Injection (Sublimaze Injection (06/14/19 11:00) Albuterol/Ipra Inhalation Soln (Duoneb I (06/14/19 11:01) Manual Differential (06/14/19 11:02) Drug Screen Stat (Urine) (06/14/19 11:14) Albuterol/Ipra Inhalation Soln (Duoneb I (06/14/19 11:15) Svn Small Volume Nebulizer (06/14/19 11:15) Iohexol Injection (Omnipaque 350 Mg/Ml 1 (06/14/19 11:30) Received Contrast (Hold Metformin- Contr (06/14/19 11:30) Ns (Ivpb) (Sodium Chloride 0.9% Ivpb Bag (06/14/19 11:30) Ceftriaxone For Iv Use (Rocephin For I (06/14/19 11:45) Lactated Ringers (Lr 1000 Ml Iv Solution (06/14/19 11:45) Fentanyl Injection (Sublimaze Injection (06/14/19 12:30) Cefepime Injection (Maxipime Injection) (06/14/19 12:30) Ibuprofen Tablet (Motrin Tablet) (06/14/19 14:00) Morphine Injection (Morphine Injection (06/14/19 13:56) Medications Given in ED Current Medications Medications Dose Ordered Sig/Betty Route Start Time Stop Time Status Last Admin Dose Admin Albuterol/ Ipratropium 3 ml STK-MED ONCE .ROUTE 06/14/19 11:01 06/14/19 11:08 DC 06/14/19 11:12 3 ML Cefepime HCl 1000 mg/Sterile Water 10 ml @ 200 mls/hr ONCE ONCE IV 06/14/19 12:30 06/14/19 12:32 DC 06/14/19 13:17 200 MLS/HR Ceftriaxone Sodium 1000 mg/ Sterile Water 10 ml @ 200 mls/hr ONCE ONCE IV 06/14/19 11:45 06/14/19 11:47 DC 06/14/19 12:04 200 MLS/HR Fentanyl Citrate 50 mcg ONCE ONCE IVP 06/14/19 11:00 06/14/19 11:01 DC 06/14/19 11:16 50 MCG Fentanyl Citrate 50 mcg ONCE ONCE IVP 06/14/19 12:30 06/14/19 12:31 DC 06/14/19 13:17 50 MCG Iohexol 100 ml ONCE ONCE IV 06/14/19 11:30 06/14/19 11:31 DC 06/14/19 12:45 100 ML Lactated Ringer's 1,000 ml @ 0 mls/hr Q0M ONCE IV 06/14/19 10:58 06/14/19 11:01 DC 06/14/19 11:16 0 MLS/HR Sodium Chloride 100 ml ONCE ONCE IV 06/14/19 11:30 06/14/19 11:31 DC 06/14/19 12:45 80 ML Vital Signs/I&O 06/14/19 06/14/19 06/14/19 06/14/19 11:12 11:21 11:33 13:18 Temp 101.0 101.3 102.8 Pulse 107 104 112 Resp 18 20 20 B/P (MAP) 141/84 (103) 155/82 165/95 Pulse Ox 95 92 95 90 O2 Delivery Nasal Cannula Nasal Cannula Nasal Cannula O2 Flow Rate 4.00 2.00 3.00 3.00 Capillary Refill : Diagnostic Imaging Comments NAME: MAULIK ELIZALDE [facility] REC#: [id number] PT STATUS: REG ER : 1965 PHYSICIAN: THOMPSON QURESHI APRN ADMIT DATE: 06/14/19/ER Draft Date of Exam:06/14/19 CHEST 1 VIEW, AP/PA ONLY PATIENT HISTORY: Left lower abdominal pain that radiates to the back. TECHNIQUE: Single frontal view of the chest. COMPARISON: Chest radiograph on 05/27/2018. FINDINGS: Interval increase in patchy opacities in the right mid and lower lung. Possible small right pleural effusion. Stable cardiomediastinal silhouette. No acute osseous abnormalities. IMPRESSION: Interval increase in patchy opacities in the right mid and lower lung, which may represent infection and/or atelectasis. Small right pleural effusion may also coexist. Dictated on workstation # [id number] Dict: 06/14/19 1215 Trans: 06/14/19 1218 [id number] Interpreted by: FELI MICHELLE DO Electronically signed by: Departure Communication (Admissions) Time/Spoke to Admitting Phy: 14:[address] Gould. We will admit the patient, still has capillary refill less than 3 seconds, blood pressure 140s systolic. Temperature up to 102, Motrin ordered. Complains of persistent pain in lower abdomen, morphine ordered. Impression Primary Impression: Pneumonia Qualified Codes: J18.1 - Lobar pneumonia, unspecified organism Additional Impressions: Anemia Qualified Codes: D64.9 - Anemia, unspecified Urinary tract infection Qualified Codes: N30.00 - Acute cystitis without hematuria Disposition: ADMITTED INPATIENT Condition: Stable Admissions Decision to Admit Reason: Admit from ER (General) Decision to Admit/Date: Jun 14, 2019 Time/Decision to Admit Time: 14:03 Departure-Patient Inst. Referrals: MARINA BIRMINGHAM MD (PCP) Primary Care Physician THOMPSON QURESHI APRN Jun 14, 2019 11:02
--- OUTSIDE RECORDS SUMMARY | 2019-06-14 11:02 | XMS REPORT | Encounter Summary ---
Author Author [facility] Organization [facility] Address Unknown Phone Unavailable Care Team Providers Care Fruit Grader Operator Name Role Phone SarbjitmaryanneOsvaldo DO Unavailable Hermila Durbin MD Unavailable Rishi Cartwright MD Unavailable Donell Haque PA-C Unavailable Lizet Parsons RN Unavailable Unavailable Kristofer Dowling MD Unavailable Unavailable Harvinder Jj MD PCP Slade Merino DO 4 Encounter Details Care Team Description Date Type Department Ross MD [address] [place] [address] Urge incontinence (Primary Dx) 01/10/2019 Prep for Case [facility] [address] [facility] [address] 2 [place] [address] Social History Date Tobacco Use [...] Date Type Specialty Rishi Cartwright MD [address] [facility] [address] [place] [address] [phone] Mixed urge and stress incontinence 08/12/2019 Hospital Encounter Rishi Cartwright MD [address] [facility] [address] [place] [address] [phone] CYSTOURETHROSCOPY WITH INJECTION FOR CHEMODENERVATION OF THE BLADDER (BOTOX 200 UNITS) 08/12/2019 Surgery documented as of this encounter Visit Diagnoses Diagnosis Urge incontinence - Primary documented in this encounter
--- OUTSIDE RECORDS SUMMARY | 2019-06-14 11:02 | XMS REPORT | Encounter Summary ---
Author Author [facility] Organization [facility] Address Unknown Phone Unavailable Care Team Providers Care Senior Abap Developer Name Role Phone Osvaldo Palafox Unavailable Hermila Durbin MD Unavailable Rishi Cartwright MD Unavailable Donell Haque PA-C Unavailable Lizet Parsons RN Unavailable Unavailable Kristofer Dowling MD Unavailable Unavailable Harvinder Jj MD PCP Slade Merino DO 4 Encounter Details Care Team Description Date Type Department Hermila Durbin MD [address] [facility] [address] [place] [address] [phone] Mixed incontinence 01/10/2019 [facility] [address] [address] Social History Date Tobacco Use Types Packs/Day [...] impairment: No documented as of this encounter Medications at Time [...] as needed for Pain Max 8 tabs/day 01/10/2019 01/14/2019 oxybutynin XL (DITROPAN Take one 90 tablet 3 XL) 10 mg tablet tablet by mouth daily. Do not cut/ crush/ chew 12/22/2018 03/11/2019 traMADol (ULTRAM) 50 mg Take one 20 tablet 0 tablet tablet by mouth three times weekly. With dressing changes documented as of this encounter Plan of Treatment Care Team Description Date Type Specialty Rishi Cartwright MD [address] [facility] [address] [place] [address] [phone] Mixed urge and stress incontinence 08/12/2019 Hospital Encounter Rishi Cartwright MD [address] [facility] [address] [place], [place] [id number] CYSTOURETHROSCOPY WITH INJECTION FOR CHEMODENERVATION OF THE BLADDER (BOTOX 200 UNITS) 08/12/2019 Surgery documented as of this encounter Procedures Comments Procedure Name Priority Date/Time Associated Diagnosis CULTURE-URINE Routine 01/10/2019 Mixed urge and stress W/SENSITIVITY 3:12 PM LICENSED PHYSICAL THERAPIST incontinence (TRI) documented in this encounter Results * CULTURE-URINE W/SENSITIVITY (01/10/2019 3:12 PM LICENSED PHYSICAL THERAPIST) Battery Name URINE CULTURE [facility] Specimen URINE, CLEAN CATCH [facility] Description Special NONE MAIN LAB Requests Culture 3 OR MORE ORGANISMS [facility] PRESENT,INDICATING CONTAMINATION. PLEASE SUBMIT ANOTHER SPECIMEN. Report Status FINAL MAIN LAB 01/11/2019 Specimen Urine - Urine,Clean Catch Performing Organization Address City/State/Zipcode Phone Number MAIN LAB [address] [place] [address] documented in this encounter Visit Diagnoses Diagnosis Mixed urge and stress incontinence (TRI) Mixed incontinence urge and stress (male)(female) documented in this encounter
--- OUTSIDE RECORDS SUMMARY | 2019-06-14 11:02 | XMS REPORT | Encounter Summary ---
Author Author [facility] Organization [facility] Address Unknown Phone Unavailable Care Team Providers Care Flash Drier Operator Name Role Phone Osvaldo Palafox Unavailable Hermila Durbin MD Unavailable Rishi Cartwright MD Unavailable Donell Haque PA-C Unavailable Lizet Parsons RN Unavailable Unavailable Kristofer Dowling MD Unavailable Unavailable Harvinder Jj MD PCP Slade Merino DO 4 Reason for Visit * Reason Comments Incontinence Encounter Details Care Team Description Date Type Department Hermila Durbin MD [address] [facility] [address] [place] [address] Mixed urge and stress incontinence (TRI) (Primary Dx) 01/10/2019 Office Visit [facility] [address] [place] [address] Social History Date Tobacco Use [...] Signs Reading Time Taken Comments Vital Sign 157/77 01/10/2019 3:19 PM REPRODUCTION ORDER PROCESSOR Blood Pressure 83 01/10/2019 3:19 PM REPRODUCTION ORDER PROCESSOR Pulse - - Temperature - - Respiratory Rate - - Oxygen Saturation - - Inhaled Oxygen Concentration 84.8 kg (187 lb) 01/10/2019 3:19 PM REPRODUCTION ORDER PROCESSOR per pt Weight 170.2 cm (5' 7") 01/10/2019 3:19 PM REPRODUCTION ORDER PROCESSOR Height 29.29 01/10/2019 3:19 PM REPRODUCTION ORDER PROCESSOR Body Mass Index documented in this encounter [...] this encounter Patient Instructions * Patient Instructions* Kelly Moser - 01/10/2019 2:45 PM REPRODUCTION ORDER PROCESSOR [facility] - Urology Pre-Operative Instructions Surgical Procedure: Botox Date of Surgery: 02/08/2019 Arrival Time at the Admission Office (Main Lobby): To ensure that your surgery can proceed without delay, you will be contacted by a phone triage nurse from the Preoperative Assessment Clinic (PAC) to complete t his process. Please review the information given to you by your surgeon. You will be called by the surgery staff with your day of surgery arrival time be tween 2:30 - 4:30 PM the business day prior to surgery. If you have not heard fr om them after 4:30 PM, please call to confirm your arrival time. Pre-Operative Assessment and Instructions: Once you speak to the nurse or are seen in the Pre-Operative Assessment Clinic, you will be given medication instructions. However, if surgery is within 2 weeks , please read and follow the medication instructions below to prepare for surger y before you speak with the phone triage nurse: 14 days prior to surgery: ? Contact your doctor who prescribes any of the following to develop a plan for surgery: o Blood thinners such as aspirin, Aggrenox, Brilinta, Effient, Eliquis, enoxapar in (Lovenox), clopidogrel (Plavix), cilostazol, pentoxifylline (Trental), Pradax a, Savaysa, ticlopidine, Xarelto, and warfarin (Coumadin) o Immunosuppresants such as methotrexate, azathioprine, sulfasalazine, everolimu s, sirolimus, Humira, Remicade, Enbrel, Simponi, Orencia, Cimzia, Actemra, and X eljanz o Chemotherapy ? Stop most vitamins, herbals, and supplements including (but not limited to): o Alpha lipoic acid, black cohosh, CoQ10, echinacea, eye vitamins, fish oil, fla xseed oil, garlic, gingko biloba, ginseng, glucosamine/chondroitin, kava, Lovaza , lutein, lysine, multivitamin, red yeast rice, CATHERINE-e, saw palmetto, Josselin s wort, turmeric, valerian root, Vascepa, Vitamin A, Vitamin B complex, Vitamin C, Vitamin E ? You DO NOT need to stop: iron, magnesium, potassium 7 days prior to surgery: ? Stop anti-inflammatory medications such as ibuprofen (Advil, Motrin), naproxen (Aleve), Rachana-Douglas, Excedrin, Midol, celecoxib (Celebrex), diclofenac ([place] micky), diflunisal, etodolac, flurbiprofen, indomethacin, ketoprofen, ketorolac, m eloxicam, nabumetone, and piroxicam Do not drink alcohol within 24 hours of surgery. Please do not eat or drink anything after midnight. No gum, mints, hard candy, snacks, coffee, etc or chewing tobacco allowed after midnight before surgery. Y ou may brush your teeth but be sure to rinse and spit. Please shower with an over the counter antibacterial soap the evening before or the morning of surgery. If your surgery is scheduled as an outpatient, you must arrange to have someone drive you home and have someone with you 24 hours after anesthesia. If you have any questions, please contact your provider's office at [phone] . For emergencies during evenings, nights, weekends, and holidays, contact [facility] pest control operator and request they contact the on-call Urology Resident at [phone]. ODUCTION ORDER PROCESSOR documented in this encounter Progress Notes * Hermila Durbin MD - 01/10/2019 2:45 PM REPRODUCTION ORDER PROCESSOR Date of Service: 01/10/2019 Subjective: History of [...] is now using 8 pads per day, in the initial several months after her Botox injections she was using 2-3 pads per day. She was taking oxybutynin 10mg XL QD which she stopped taking for reasons she cannot recall. She states that it worked well and there were no significant side effects. Past Medical History: Diagnosis Date Arthritis Asthma Back pain CAD (coronary artery disease) Carotid artery disease (HCC) Chronic female pelvic pain Chronic pain COPD (chronic obstructive pulmonary disease) ([facility]) Depression DM (diabetes mellitus) ([facility]) Dyslipidemia GERD (gastroesophageal reflux disease) Hayfever HTN (hypertension) Hypothyroidism IC (interstitial cystitis) Ischemic cardiomyopathy Mixed stress and urge urinary incontinence Myocardial infarction ([facility]) 2009 Neuropathy OAB (overactive bladder) On supplemental oxygen therapy 2L at night Seizure ([facility]) in high school Tobacco use Past Surgical [...] (200 UNITS) performed by Hermila gordillo MD [facility] CYSTOURETHROSCOPY INJ CHEMODENERVATION BLADDER N/A 09/16/2016 CYSTOSCOPY BOTOX INJECTIONS (200 UNITS) performed by Hermila Durbin MD at [facility] OR/Periop ABDOMINAL AORTIC ANEURYSM REPAIR, OPEN 2017 [facility] CYSTOURETHROSCOPY INJ CHEMODENERVATION BLADDER N/A 03/17/2017 CYSTOSCOPY WITH INTRAVESICAL BLADDER BOTOX INJECTIONS (200 UNITS) performed by Hermila Durbin MD at [facility] OR/Periop LEG AMPUTATION BELOW KNEE Right 08/20/2018 RIGHT BELOW KNEE AMPUTATION performed by Pradip Jaramillo MD at [facility] OR/Periop INCISION AND DRAINAGE Right 10/15/2018 INCISION AND DRAINAGE POSTOPERATIVE WOUND INFECTION RIGHT BELOW THE KNEE AMPUTA TION STUMP WITH APPLICATION OF WOUND VAC performed by Pradip Jaramillo MD at [facility] O R/Periop CARPAL TUNNEL RELEASE Bilateral unsure [...] Used Tobacco comment: decreased to .5ppd since 2013 Substance and Sexual Activity Alcohol use: No [...] mg tablet Take one tablet by kiara every 6 hours as needed for Pain [...] otherwise noted. Staff name: Hermila Durbin MD ODUCTION ORDER PROCESSOR documented in this encounter Plan of Treatment Care Team Description Date Type Specialty Rishi Cartwright MD [address] [facility]Med Pavilion [address] [place] [address] [phone] Mixed urge and stress incontinence 08/12/2019 Hospital Encounter Rishi Cartwright MD [address] [facility] [address] [place] [address] [phone] CYSTOURETHROSCOPY WITH INJECTION FOR CHEMODENERVATION OF THE BLADDER (BOTOX 200 UNITS) 08/12/2019 Surgery documented as of this encounter Procedures Comments Procedure Name Priority Date/Time Associated Diagnosis POC URINE DIPSTICK MANUAL Routine 01/10/2019 Mixed urge and stress READ incontinence (TRI) documented in this encounter Results * CULTURE-URINE W/SENSITIVITY (01/10/2019 3:12 PM REPRODUCTION ORDER PROCESSOR) Battery Name URINE CULTURE [facility] Specimen URINE, CLEAN CATCH [facility] Description Special NONE [facility] Requests Culture 3 OR MORE ORGANISMS [facility] PRESENT,INDICATING CONTAMINATION. PLEASE SUBMIT ANOTHER SPECIMEN. Report Status FINAL [facility] 01/11/2019 Specimen Urine - Urine,Clean Catch Performing Organization Address City/State/Zipcode Phone Number MAIN LAB [address] [place] [address] * POC URINE DIPSTICK MANUAL READ (01/10/2019) Urine Glucose NEG IN CLINIC POC Urine Bilirubin NEG IN CLINIC POC Urine Ketone NEG IN CLINIC POC Urine Specific 1.030 IN CLINIC [place] POC Urine Blood POC NEG IN CLINIC Urine PH POC 6.0 IN CLINIC Urine Protein TRACE IN CLINIC POC Urine 0.2 IN CLINIC Urobilinogen POC Urine Nitrite POSITIVE IN CLINIC POC Urine TRACE IN CLINIC Leukocytes POC Color,UA DEIRDRE IN CLINIC Turbidity,UA CLOUDY IN CLINIC Specimen Urine - Urine Performing Organization Address City/State/Zipcode Phone Number IN CLINIC documented in this encounter Visit Diagnoses Diagnosis Mixed urge and stress incontinence (TRI) - Primary Mixed incontinence urge and stress (male)(female) * Assessment & Plan Note - Ross Olson MD - 01/10/2019 4:18 PM REPRODUCTION ORDER PROCESSOR Associated Problem(s): Mixed urge and stress incontinence (TRI) 53 year old female with PMH of mixed incontinence managed with botox and oxybuty mia 10mg XL with return of symptoms Plan: - Schedule for botox 02/08/19 200U - Oxybutynin 10mg XL - Urine culture today - Empiric bactrim started ODUCTION ORDER PROCESSOR documented in this encounter
--- OUTSIDE RECORDS SUMMARY | 2019-06-14 11:02 | XMS REPORT | Encounter Summary ---
Author Author [facility] Organization [facility] Address Unknown Phone Unavailable Care Team Providers Care Drill Press Set Up Operator Name Role Phone Osvaldo Palafox Unavailable Hermila Durbin MD Unavailable Rishi Cartwright MD Unavailable Donell Haque PA-C Unavailable Lizet Parsons RN Unavailable Unavailable Kristofer Dowling MD Unavailable Unavailable Harvinder Jj MD PCP Slade Merino DO 4 Reason for Visit * Reason Comments Medication Question Encounter Details Care Team Description Date Type Department Hermila Durbin MD [address] [facility] [address] [place] [address] Medication Question 01/11/[address] 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 She stated she has been taking 15 mg and her new prescription says 10 mg. She is concerned that the 15 mg wasn't even working for her so why is she taking the 10 mg, per pt. Please speak with MD Durbin regarding oxybutynin and call pt back if there needs to be a change. HT ENGINEER INSTRUCTOR documented in this encounter Plan of Treatment Care Team Description Date Type Specialty Rishi Cartwright MD [address] [facility] [address] [place] [address] [phone] Mixed urge and stress incontinence 08/12/2019 Hospital Encounter Rishi Cartwright MD [address] [facility] [address] [place] [address] [phone] CYSTOURETHROSCOPY WITH INJECTION FOR CHEMODENERVATION OF THE BLADDER (BOTOX 200 UNITS) 08/12/2019 Surgery documented as of this encounter Visit Diagnoses Not on filedocumented in this encounter
--- OUTSIDE RECORDS SUMMARY | 2019-06-14 11:02 | XMS REPORT | Encounter Summary ---
Author Author [facility] Organization [facility] Address Unknown Phone Unavailable Care Team Providers Care Permastone Applicator Name Role Phone SarbjitmaryanneOsvaldo DO Unavailable Hermila Durbin MD Unavailable Rishi Cartwright MD Unavailable Donell Haque PA-C Unavailable Lizet Parsons RN Unavailable Unavailable Kristofer Dowling MD Unavailable Unavailable Harvinder Jj MD PCP Slade Merino DO 4 Reason for Visit * Reason Comments Post Operative Visit right bka Encounter Details Care Team Description Date Type Department Pradip Jaramillo MD [address] [facility] [address] [place] [address] Postoperative wound dehiscence, subsequent encounter (Primary Dx) 12/21/2018 Office Visit [facility] [address] [place] [address] Social History Date Tobacco Use [...] Signs Reading Time Taken Comments Vital Sign - - Blood Pressure - - Pulse - - Temperature - - Respiratory Rate - - Oxygen Saturation - - Inhaled Oxygen Concentration 82.1 kg (181 lb) 12/21/2018 8:06 AM MAINTENANCE SUPERVISOR Weight 170.2 cm (5' 7") 12/21/2018 8:06 AM MAINTENANCE SUPERVISOR Height 28.35 12/21/2018 8:06 AM MAINTENANCE SUPERVISOR Body Mass Index documented in this encounter [...] Progress Notes * Pradip Jaramillo MD - 12/21/2018 8:15 AM MAINTENANCE SUPERVISOR She is here today for postoperative follow up s/p I&D of right below-knee amputation. She wants pain medication. Her wound actually looks remarkably good. She just has a small sliver of granulation to heal in. Her swelling is down. She can continue with her local wound care. She is ready to be turned over to prosthetics. I will give her a few more pain meds, but I am not going to contribute to her long-term narcotic abuse. I will see her back after she has gotten in a prosthetic. In the presence of Pradip Jaramillo MD, I have taken down these notes, Kendal Grossman. TENANCE SUPERVISOR documented in this encounter Plan of Treatment Care Team Description Date Type Specialty Rishi Cartwright MD [address] [facility] [address] [place] [address] [phone] Mixed urge and stress incontinence 08/12/2019 Hospital Encounter Rishi Cartwright MD [address] [facility] [address] [place] [address] [phone] CYSTOURETHROSCOPY WITH INJECTION FOR CHEMODENERVATION OF THE BLADDER (BOTOX 200 UNITS) 08/12/2019 Surgery documented as of this encounter Visit Diagnoses Diagnosis Postoperative wound dehiscence, subsequent encounter - Primary documented in this encounter
--- OUTSIDE RECORDS SUMMARY | 2019-06-14 11:03 | XMS REPORT ---
Author Author Migration, Doctor Organization [facility] Address Unknown Phone Unavailable Care Team Providers Care Research And Development Director Name Role Phone Migration, Doctor Unavailable Unavailable PROBLEMS Type Condition ICD9-CM Code BEI50-XW Code Onset Dates Condition Status SNOMED Code Problem Acquired hypothyroidism E03.9 Active 793788331 Problem Prediabetes R73.03 Active 527547867 Problem Essential hypertension I10 Active 66009383 Problem Mixed hyperlipidemia E78.2 Active 027389789 Problem Gastroesophageal reflux disease, esophagitis presence not specified K21.9 Active 325026569 Problem Reactive depression F32.9 Active 16404834 Problem Lumbago with sciatica, right side M54.41 Active [id number] Problem Lumbago with sciatica, left side M54.42 Active 671370930 Problem Cigarette nicotine dependence without complication F17.210 Active 83407975 Problem DM neuro manif type II E11.49 Active 63294577 Problem Seizures R56.9 Active 31392197 Problem Adjustment disorder with disturbance of emotion F43.29 Active 70516159 Problem Chronic obstructive pulmonary disease, unspecified COPD type J44.9 Active 69081932 Problem Major depressive disorder, recurrent, moderate F33.1 Active 446245857 Problem Other chronic pain G89.29 Active 03251814 Problem Iron deficiency anemia due to chronic blood loss D50.0 Active 408301702 Problem Seasonal allergies J30.2 Active 438319306 Problem Sinusitis J32.9 Active 49907290 Problem Chronic pain G89.29 Active 01854952 ALLERGIES No Information ENCOUNTERS Encounter Location Date Diagnosis [facility] [id number] [address] Jun, [facility] [address], [place] [address] May, [facility] [id number], [place] [address] May, [facility] [id number] [place] [address] May, [facility] [address] [address] May, Bronchitis J40 [facility] [id number] [place] [address] May, Major depressive disorder, recurrent, moderate F33.1 and Adjustment disorder with disturbance of emotion F43.29 [facility] [id number] [place] [address] Apr, [place] [address] [address] Apr, Type 2 diabetes mellitus with hyperglycemia E11.65 [place] [address] [address] 17 Apr, 2019 Type 2 diabetes mellitus with hyperglycemia E11.65 [facility] [address] [address] Apr, Major depressive disorder, recurrent, moderate F33.1 and Adjustment disorder with disturbance of emotion F43.29 [place] [id number] [place] [address] Apr, [facility] [address] [address] Apr, Diarrhea, unspecified type R19.7 [facility] [id number] [place] [address] Apr, Low back pain M54.5 ; Other chronic pain G89.29 and Anemia, unspecified type D64.9 [place] [address] [address] Apr, [place] [address] [address] Apr, Diarrhea, unspecified type R19.7 and Lumbar radiculopathy, chronic M54.16 [facility] [id number] [place] [address] March, Non-intractable vomiting with nausea, unspecified vomiting type R11.2 and Muscle cramps R25.2 [facility] [id number] [place] [address] March, [place] [address] [address] March, Other chronic pain G89.29 [place] [address] [address] March, Type 2 diabetes mellitus with hyperglycemia E11.65 ; Flank pain R10.9 ; Acute cystitis without hematuria N30.00 ; Chronic obstructive pulmonary disease, unspecified COPD type J44.9 and Moderate episode of recurrent major depressive disorder F33.1 [place] [address] [address] March, [facility] [address] [address] March, Wheezing R06.2 and Viral upper respiratory tract infection J06.9 [place] [id number] [place] [address] Feb, [facility] [id number] [place] [address] Feb, [facility] [id number] [place] [address] Jan, [facility] [id number] [place] [address] Jan, Acute cystitis with hematuria N30.01 and Dysuria R30.0 [facility] [id number] [place] [address] Jan, [place] [address] [address] Dec, [facility] [id number] [address] Dec, [facility] [address], [place] [address] Dec, [facility] [id number], [place] [address] Dec, [facility] [address], [place] [address] Dec, Routine adult health maintenance Z00.00 ; Chronic obstructive pulmonary disease, unspecified COPD type J44.9 and Encounter for immunization Z23 [facility] [address], [place] [address] Nov, [facility] [address], [place] [address] Nov, UTI (urinary tract infection) N39.0 and Other chronic pain G89.29 [facility] [id number], [place] [address] Nov, [facility] [address], [place] [address] Nov, [facility] [id number], [place] [address] Nov, Painful urination R30.9 and UTI (urinary tract infection) N39.0 [facility] [id number], [place] [address] Nov, [facility] [address] [facility] [id number] [address] Nov, UTI (urinary tract infection) N39.0 [facility] [id number], [place] [address] Nov, Dysuria R30.0 ; UTI (urinary tract infection) N39.0 and Chronic pain G89.29 [facility] [id number] [place] [address] Nov, [place] [id number] [place] [address] Oct, Cough R05 [place] [id number] [place] [address] 14 Oct, 2018 Sinusitis J32.9 [place] [address] [address] 10 Oct, 2018 [place] [id number] [place] [address] Oct, UTI (urinary tract infection) N39.0 and URI (upper respiratory infection) J06.9 [place] [id number] [place] [address] Sep, Pain in thoracic spine M54.6 [place] [address] [address] Sep, Type 2 diabetes mellitus with hyperglycemia E11.65 [place] [id number] [place] [address] Sep, Chronic obstructive pulmonary disease, unspecified COPD type J44.9 ; Abrasion of right ear canal, initial encounter S00.411A ; Cigarette nicotine dependence without complication F17.210 ; Right leg pain M79.604 and Seasonal allergies J30.2 [place] [id number] [place] [address] Aug, [place] [id number] [place] [address] Aug, [place] [id number] [place] [address] Aug, Pain in thoracic spine M54.6 [place] [id number] [place] [address] Aug, [place] [id number] [place] [address] Aug, Chronic obstructive pulmonary disease, unspecified COPD type J44.9 ; Complete amputation of right foot, 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 ; Cigarette nicotine dependence without complication F17.210 and BMI 40.0-44.9, adult Z68.41 [place] [id number] [place] [address] Jul, [place] [address] [address] Jul, [place] [address] [address] Jul, Onychomycosis B35.1 ; Onychocryptosis L60.0 and DM neuro manif type II E11.[address] [address] Jun, Pain in thoracic spine M54.6 [place] [address] [address] Jun, Iron deficiency anemia due to chronic blood loss D50.0 and Hematochezia K92.[address] [address] Jun, Gastroenteritis K52.9 and Abnormal RBC indices R71.8 [address] [id number] [place] [address] Jun, [place] [address] [address] Jun, Chest congestion R09.89 and Seizures R56.[address] [address] May, Pain in thoracic spine M54.6 [place] [id number] [place] [address] May, [place] [address] [address] May, [facility] [id number] [place] [address] May, [facility] [id number] [place] [address] May, Acute non-recurrent frontal sinusitis J01.10 and Dermatitis L30.9 [facility] [id number] [place] [address] May, [facility] [id number] [place] [address] May, Pain in thoracic spine M54.6 [facility] [id number] [place] [address] May, [facility] [id number] [place] [address] May, Acute nasopharyngitis J00 [facility] [id number] [place] [address] May, [facility] [id number] [place] [address] May, [facility] [id number] [place] [address] Apr, [facility] [id number] [place] [address] Apr, [facility] [id number] [place] [address] Apr, [facility] [id number] [place] [address] Apr, [facility] [id number] [place] [address] Apr, Pain in right ankle and joints of right foot M25.571 [facility] [id number] [place] [address] Apr, [place] [id number] [place] [address] 18 Apr, 2018 Bronchitis J40 ; Pain in right ankle and joints of right foot M25.571 ; Other chronic pain G89.29 ; Prediabetes R73.03 ; Chronic obstructive pulmonary disease, unspecified COPD type J44.9 and Cigarette nicotine dependence without complication F17.210 [facility] [address] [address] 13 Apr, 2018 Seasonal allergic rhinitis, unspecified trigger J30.2 [address] [place] [address] [address] 08 Apr, 2018 Onychomycosis B35.1 ; Onychocryptosis L60.0 and DM neuro manif type II E11.49 [address] [address] [address] Apr, Reactive depression F32.9 ; Thoracic myofascial strain, initial encounter S29.019A and Leg cramps R25.2 [address] [address] [address] March, [place] [address] [address] March, Type 2 diabetes mellitus with hyperglycemia E11.65 [place] [id number] [place] [address] March, Reactive depression F32.9 [place] [address] [address] March, Pain in thoracic spine M54.6 and Other chronic pain G89.29 [address] [address] [address] Feb, [place] [address] [address] Jan, Reactive depression F32.9 ; Essential hypertension I10 ; Gastroesophageal reflux disease, esophagitis presence not specified K21.9 ; Lumbago with sciatica, left side M54.42 and Lumbago with sciatica, right side M54.41 [address] [address] [address] Jan, Reactive depression F32.9 and Pharyngoesophageal dysphagia R13.14 [address] [address] [address] Jan, [place] [address] [address] Jan, Encounter for immunization Z23 [address] [address] Jan, Onychomycosis B35.1 and DM neuro manif type II E11.[address] [address] Jan, [place] [address] [address] Jan, Prediabetes R73.03 [address] [address] [address] Dec, [place] [address] [address] Dec, Essential hypertension I10 ; Mixed hyperlipidemia E78.2 ; Acquired hypothyroidism E03.9 ; Reactive depression F32.9 and Prediabetes R73.03 [address] [address] [address] Dec, [place] [address] [address] Dec, [place] [address] [address] 08 Dec, 2017 DM neuro manif type II E11.49 [facility] [address] [address] Dec, Bruise T14.8XXA ; Type 2 diabetes mellitus with hyperglycemia E11.65 and 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 [facility] [id number] [place] [address] Oct, [facility] [id number] [place] [address] March, Onychomycosis B35.1 and DM neuro manif type II E11.49 [facility] [id number] [place] [address] Jun, [facility] [id number] [place] [address] Jun, [facility] [id number] [place] [address] Jun, COPD with acute exacerbation 491.21 [facility] [id number] [place] [address] Apr, [facility] [id number] [place] [address] Feb, [facility] [id number] [place] [address] Feb, [facility] [address], [place] [address] Jan, [facility] [address] [place] [address] Jan, [facility] [address] [place] [address] Jan, [facility] [id number] [place] [address] Jan, [facility] [address], [place] [address] Jan, [facility] [id number] [place] [address] 23 Jan, 2014 [facility] [place] [facility] [address] [id number] [place] [address] 23 Jan, 2014 [facility] [place] [facility] [address] [id number] [place] [address] 23 Jan, 2014 [facility] [place] [facility] [address] [id number] [place] [address] 23 Jan, 2014 [facility] [place] [facility] [address] [id number] [place] [address] 19 Jan, 2014 [facility] [place] [facility] [address] [id number] [place] [address] 19 Jan, 2014 [facility] [place] [facility] [address] [id number] [place] [address] 18 Jan, 2014 [facility] [place] [facility] [address] [id number] [place] [address] 18 Jan, 2014 [facility] [place] [facility] [address] [id number] [place] [address] 16 Jan, 2014 [facility] [place] [facility] [address] [id number] [place] [address] 16 Jan, 2014 [facility] [place] [facility] [address] [id number] [place] [address] 16 Jan, 2014 [facility] [place] [facility] [address] [id number] [place] [address] 16 Jan, 2014 [facility] [place] [facility] [address] [id number] [place] [address] 15 Jan, 2014 [facility] [place] [facility] [address] [id number] [place] [address] 13 Jan, 2014 [facility] [place] [facility] [address] [id number] [place] [address] 13 Jan, 2014 [facility] [place] [facility] [address] [id number] [place] [address] 13 Jan, 2014 [facility] [place] [facility] [address] [id number] [place] [address] 13 Jan, 2014 [facility] [place] [facility] [address] [id number] [place] [address] 12 Jan, 2014 [facility] [place] [facility] [address] [id number] [place] [address] 04 Jan, 2014 [facility] [place] [facility] [address] [id number] [place] [address] 04 Jan, 2014 [facility] [place] [facility] [address] [id number] [place] [address] 24 Dec, 2014 [facility] [place] [facility] [address] [id number] [place] [address] 24 Dec, 2014 [facility] [place] [facility] [address] [facility] [id number] [place] [address] 24 Dec, 2014 [facility] [place] [facility] [address] [id number] [place] [address] 24 Dec, 2014 [facility] [place] [facility] [address] [id number] [place] [address] Dec, 2014 [facility] [place] [facility] [address] [facility] [id number] [place] [address] 23 Dec, 2014 [facility] [place] [facility] [address] [facility] [id number] [place] [address] 20 Dec, 2014 [facility] [place] [facility] [address] [id number] [place] [address] 20 Dec, 2014 [facility] [place] [facility] [address] [id number] [place] [address] 19 Dec, 2014 [facility] [place] [facility] [address] [id number] [place] [address] 19 Dec, 2014 [facility] [place] [facility] [address] [facility] [id number] [place] [address] 16 Dec, 2014 [facility] [place] [facility] [address] [facility] [id number] [place] [address] 16 Dec, 2014 [facility] [address] [id number] [place] [address] Nov, [facility] [place] [facility] [address] [id number] [place] [address] Nov, [facility] [place] [facility] [address] [id number] [place] [address] Nov, [facility] [place] [facility] [address] [id number] [place] [address] Nov, [facility] [place] [facility] [address] [id number] [place] [address] Nov, [facility] [place] [facility] [address] [id number] [place] [address] Nov, [facility] [place] [facility] [address] [id number] [place] [address] Nov, [facility] [place] [facility] [address] [id number] [place] [address] Nov, [facility] [place] [facility] [address] [id number] [place] [address] Nov, [facility] [place] [facility] [address] [id number] [place] [address] Nov, [facility] [place] [facility] [address] [id number] [place] [address] Nov, [facility] [place] [facility] [address] [id number] [place] [address] Nov, [facility] [place] [facility] [address] [id number] [place] [address] Oct, [facility] [place] [facility] [address] [id number] [place] [address] Oct, [facility] [place] [facility] [address] [id number] [place] [address] 30 Oct, 2014 [facility] [place] [facility] [address] [id number] [place] [address] 30 Oct, 2014 [facility] [place] [facility] [address] [id number] [place] [address] Oct, [facility] [place] [facility] [address] [id number] [place] [address] Oct, [facility] [place] [facility] [address] [id number] [place] [address] Oct, [facility] [place] [facility] [address] [id number] [place] [address] Oct, [facility] [place] [facility] [address] [id number] [place] [address] Oct, [facility] [place] [facility] [address] [id number] [place] [address] Oct, [facility] [place] [facility] [address] [id number] [place] [address] 16 Oct, 2014 [facility] [place] [facility] [address] [id number] [place] [address] 16 Oct, 2014 [facility] [place] [facility] [address] [id number] [place] [address] 15 Oct, 2014 [facility] [place] [facility] [address] [id number] [place] [address] 15 Oct, 2014 [facility] [place] [facility] [address] [id number] [place] [address] 08 Oct, 2014 [facility] [place] [facility] [address] [id number] [place] [address] 24 Sep, 2014 [facility] [place] [facility] [address] [id number] [place] [address] 24 Sep, 2014 [facility] [place] [facility] [address] [id number] [place] [address] Sep, [facility] [place] [facility] [address] [id number] [place] [address] Sep, [facility] [place] [facility] [address] [id number] [place] [address] Aug, [facility] [place] [facility] [address] [id number] [place] [address] Aug, [facility] [place] [facility] [address] [id number] [place] [address] Aug, [facility] [place] [facility] [address] [id number] [place] [address] Aug, [facility] [place] [facility] [address] [id number] [place] [address] Aug, [facility] [place] [facility] [address] [id number] [place] [address] Aug, [facility] [place] [facility] [address] [id number] [place] [address] 29 Jul, 2014 [facility] [place] [facility] [address] [id number] [place] [address] 29 Jul, 2014 [facility] [place] [facility] [address] [id number] [place] [address] 15 Jul, 2014 [facility] [place] [facility] [address] [id number] [place] [address] 15 Jul, 2014 [facility] [place] [facility] [address] [id number] [place] [address] 08 Jul, 2014 [facility] [place] [facility] [address] [id number] [address] 08 Jul, 2014 [facility] [place] [facility] [address] [id number] [place] [address] Jun, [facility] [place] [facility] [address] [id number] [place] [address] Jun, [facility] [place] [facility] [address] [id number] [place] [address] Jun, [facility] [place] [facility] [address] [id number] [place] [address] Jun, [facility] [place] [facility] [address] [id number] [place] [address] Jun, [facility] [place] [facility] [address] [id number] [place] [address] Jun, [facility] [place] [facility] [address] [id number] [place] [address] Jun, [facility] [place] [facility] [address] [id number] [place] [address] May, [facility] [place] [facility] [address] [id number] [place] [address] May, [facility] [place] [facility] [address] [id number] [place] [address] May, [facility] [place] [facility] [address] [id number] [place] [address] May, [facility] [place] [facility] [address] [id number] [place] [address] May, [facility] [place] [facility] [address] [id number] [place] [address] May, [facility] [place] [facility] [address] [id number] [place] [address] May, [facility] [place] [facility] [address] [id number] [place] [address] May, [facility] [place] [facility] [address] [id number] [place] [address] May, [facility] [place] [facility] [address] [id number] [place] [address] May, [facility] [place] [facility] [address] [id number] [place] [address] May, [facility] [place] [facility] [address] [id number] [place] [address] May, [facility] [place] [facility] [address] [id number] [place] [address] Apr, [facility] [place] [facility] [address] [id number] [place] [address] Apr, [facility] [place] [facility] [address] [id number] [place] [address] Apr, [facility] [place] [facility] [address] [id number] [place] [address] Apr, [facility] [place] [facility] [address] [id number] [place] [address] Apr, [facility] [place] [facility] [address] [id number] [place] [address] Apr, [facility] [place] [facility] [address] [id number] [place] [address] Apr, [facility] [place] [facility] [address] [id number] [place] [address] Apr, [facility] [place] [facility] [address] [id number] [place] [address] Apr, [facility] [place] [facility] [address] [id number] [place] [address] Apr, [facility] [place] [facility] [address] [id number] [place] [address] March, [facility] [place] [facility] [address] [id number] [place] [address] March, [facility] [place] [facility] [address] [id number] [place] [address] March, [facility] [place] [facility] [address] [id number] [place] [address] March, [facility] [place] [facility] [address] [id number] [place] [address] March, [facility] [place] [facility] [address] [id number], [place] [address] March, [facility] [place] [facility] [address] [id number] [place] [address] Feb, [facility] [place] [facility] [address] [id number] [place] [address] Feb, [facility] [place] [facility] [address] [id number] [place] [address] Feb, [facility] [place] [facility] [address] [id number] [place] [address] Feb, [facility] [place] [facility] [address] [id number] [place] [address] Feb, [facility] [place] [facility] [address] [id number] [place] [address] Feb, [facility] [place] [facility] [address] [id number] [place] [address] Feb, [facility] [place] [facility] [address] [id number] [place] [address] Feb, [facility] [place] [facility] [address] [id number] [place] [address] Feb, [facility] [place] [facility] [address] [id number] [place] [address] Feb, [facility] [place] [facility] [address] [id number] [place] [address] Jan, [facility] [place] [facility] [address] [id number] [place] [address] Jan, [facility] [place] [facility] [address] [id number] [place] [address] Jan, [facility] [place] [facility] [address] [id number] [place] [address] Jan, [facility] [place] [facility] [address] [id number] [place] [address] Jan, [facility] [place] [facility] [address] [id number] [place] [address] Jan, [facility] [place] [facility] [address] [id number] [place] [address] Jan, [facility] [place] [facility] [address] [id number] [place] [address] Jan, [facility] [place] [facility] [address] [id number] [place] [address] Dec, [facility] [place] [facility] [address] [id number] [place] [address] Dec, [facility] [place] [facility] [address] [id number] [place] [address] Dec, [facility] [place] [facility] [address] [facility] [id number] [place] [address] Dec, [facility] [place] [facility] [address] [id number] [place] [address] Dec, [facility] [place] [facility] [address] [id number] [place] [address] Dec, [facility] [place] [facility] [address] [facility] [id number] [place] [address] Dec, [facility] [place] [facility] [address] [id number] [place] [address] Dec, [facility] [place] [facility] [address] [id number] [place] [address] Nov, [facility] [place] [facility] [address] [id number] [place] [address] Nov, [facility] [place] [facility] [address] [id number] [place] [address] Nov, [facility] [place] [facility] [address] [id number] [place] [address] Nov, [facility] [place] [facility] [address] [id number], [place] [address] Nov, [facility] [address] [id number] [place] [address] Nov, [facility] [place] [facility] [address] [facility] [id number], [place] [address] Nov, [facility] [place] [facility] [address] [facility] [id number] [place] [address] Nov, [facility] [place] [facility] [address] [facility] [id number] [place] [address] Nov, [facility] [place] [facility] [address] [facility] [id number] [place] [address] Nov, [facility] [place] [facility] [address] [facility] [id number] [place] [address] Nov, [facility] [id number], [place] [address] Oct, [facility] [place] [facility] [address] [facility] [id number], [place] [address] Oct, [facility] [place] [facility] [address] [id number] [address] Oct, [facility] [place] [facility] [address] [id number], [place] [address] Oct, [facility] [place] [facility] [address] [facility] [id number], [place] [address] Sep, [facility] [place] [facility] [address] [facility] [id number], [place] [address] Sep, [facility] [place] [facility] [address] [facility] [id number], [place] [address] Sep, [facility] [place] [facility] [address] [facility] [id number], [place] [address] Sep, [facility] [place] [facility] [address] [id number], [place] [address] Aug, [facility] [place] [facility] [address] [id number] [place] [address] Aug, [facility] [place] [facility] [address] [id number] [place] [address] Aug, [facility] [place] [facility] [address] [id number] [place] [address] Aug, [facility] [place] [facility] [address] [id number] [place] [address] Aug, [facility] [place] [facility] [address] [id number] [place] [address] Aug, [facility] [place] [facility] [address] [id number] [place] [address] Aug, [facility] [place] [facility] [address] [id number] [place] [address] Aug, [facility] [place] [facility] [address] [id number] [place] [address] 28 Jul, 2012 [facility] [place] [facility] [address] [id number] [place] [address] 27 Sep, 2012 [facility] [place] [facility] [address] [id number] [place] [address] 26 Sep, 2012 [facility] [place] [facility] [address] [id number] [place] [address] 24 Sep, 2012 [facility] [place] [facility] [address] [id number] [place] [address] 24 Sep, 2012 [facility] [place] [facility] [address] [id number] [place] [address] 23 Sep, 2012 [facility] [place] [facility] [address] [id number] [place] [address] 19 Sep, 2012 [facility] [place] [facility] [address] [id number] [place] [address] 18 Sep, 2012 [facility] [place] [facility] [address] [id number] [place] [address] 17 Sep, 2012 [facility] [place] [facility] [address] [id number] [place] [address] 16 Jul, 2012 [facility] [place] [facility] [address] [id number] [place] [address] 13 Jul, 2013 [facility] [place] [facility] [address] [id number] [place] [address] 13 Jul, 2013 [facility] [place] [facility] [address] [id number] [place] [address] 12 Jul, 2013 [facility] [place] [facility] [address] [id number] [place] [address] 11 Jul, 2013 [facility] [place] [facility] [address] [id number] [place] [address] 04 Jul, 2013 [facility] [place] [facility] [address] [id number] [place] [address] Jun, [facility] [place] [facility] [address] [id number] [place] [address] Jun, [facility] [place] [facility] [address] [id number] [place] [address] Jun, [facility] [place] [facility] [address] [id number] [place] [address] May, [facility] [place] [facility] [address] [id number], [place] [address] May, [facility] [place] [facility] [address] [id number], [place] [address] May, [facility] [place] [facility] [address] [id number] [place] [address] May, [facility] [place] [facility] [address] [id number] [place] [address] Apr, [facility] [place] [facility] [address] [id number] [place] [address] Apr, [facility] [place] [facility] [address] [id number] [place] [address] 08 Apr, 2013 [facility] [address] [id number] [place] [address] Apr, [facility] [address] [id number] [place] [address] March, [facility] [address] [id number] [place] [address] March, [facility] [address] [id number] [place] [address] March, [facility] [address] [id number] [place] [address] Feb, [facility] [address] [id number] [place] [address] Feb, [facility] [address] [id number] [place] [address] Jan, [facility] [address] [id number] [place] [address] Jan, [facility] [address] [id number] [place] [address] Jan, [facility] [address] [facility] [id number] [place] [address] Jan, [facility] [address] [id number] [place] [address] Jan, [facility] [address] [id number] [place] [address] Dec, [facility] [place] [facility] [address] [id number] [place] [address] Dec, [facility] [place] [facility] [address] [id number] [place] [address] Dec, [facility] [place] [facility] [address] [id number] [place] [address] Dec, [facility] [address] [id number] [place] [address] 18 Dec, 2012 [facility] [place] [facility] [address] [id number] [place] [address] Dec, [facility] [address] [id number] [place] [address] 04 Dec, 2012 [facility] [place] [facility] [address] [id number] [place] [address] Dec, [facility] [address] [id number] [place] [address] Nov, [facility] [address] [id number] [place] [address] Nov, [facility] [address] [id number] [place] [address] Nov, [facility] [address] [id number] [place] [address] Nov, [facility] [address] [id number] [place] [address] Nov, [facility] [address] [id number] [place] [address] Nov, [facility] [address] [id number], [place] [address] Nov, [facility] [place] [facility] [address] [id number], [place] [address] Oct, [facility] [place] [facility] [address] [id number] [place] [address] Oct, [facility] [place] [facility] [address] [id number] [place] [address] Oct, [facility] [place] [facility] [address] [id number] [place] [address] Oct, [facility] [place] [facility] [address] [id number] [place] [address] 05 Oct, 2012 [facility] [place] [facility] [address] [id number] [place] [address] 05 Oct, 2012 [facility] [place] [facility] [address] [id number] [place] [address] Oct, [facility] [place] [facility] [address] [id number] [place] [address] Oct, [facility] [place] [facility] [address] [id number] [place] [address] Sep, [facility] [place] [facility] [address] [id number] [place] [address] Sep, [facility] [place] [facility] [address] [id number] [place] [address] Sep, [facility] [place] [facility] [address] [id number] [place] [address] Sep, [facility] [place] [facility] [address] [id number] [place] [address] Sep, [facility] [place] [facility] [address] [id number] [place] [address] Sep, [facility] [place] [facility] [address] [facility] [id number] [place] [address] Sep, [facility] [place] [facility] [address] [id number] [place] [address] Sep, [facility] [place] [facility] [address] [id number], [place] [address] Sep, [facility] [place] [facility] [address] [id number] [place] [address] Sep, [facility] [place] [facility] [address] [id number] [place] [address] Sep, [facility] [place] [facility] [address] [id number] [place] [address] Sep, [facility] [place] [facility] [address] [id number] [place] [address] Sep, [facility] [place] [facility] [address] [id number] [place] [address] Sep, [facility] [place] [facility] [address] [id number] [place] [address] Sep, [facility] [place] [facility] [address] [id number] [place] [address], [place] [address] Sep, [facility] [place] [facility] [address] [id number] [place] [address] Sep, [facility] [place] [facility] [address] [id number] [place] [address] Sep, [facility] [place] [facility] [address] [facility] [id number] [place] [address] Sep, [facility] [place] [facility] [address] [id number] [place] [address] Sep, [facility] [place] [facility] [address] [id number] [place] [address] Aug, [facility] [place] [facility] [address] [id number] [place] [address] Aug, [facility] [place] [facility] [address] [facility] [id number] [place] [address] Aug, [facility] [place] [facility] [address] [id number], [place] [address] Aug, [facility] [place] [facility] [address] [id number] [place] [address] Aug, [facility] [place] [facility] [address] [id number] [place] [address] Aug, [facility] [place] [facility] [address] [id number] [place] [address] Aug, [facility] [place] [facility] [address] [id number] [place] [address] 17 Aug, 2012 [facility] [place] [facility] [address] [id number] [place] [address] 16 Aug, 2012 [facility] [place] [facility] [address] [id number] [place] [address] 16 Aug, 2012 [facility] [place] [facility] [address] [id number] [place] [address] 15 Aug, 2012 [facility] [place] [facility] [address] [id number] [place] [address] Aug, [facility] [place] [facility] [address] [id number] [place] [address] Aug, [facility] [place] [facility] [address] [id number] [place] [address] Aug, [facility] [place] [facility] [address] [id number] [place] [address] Aug, [facility] [place] [facility] [address] [id number] [place] [address] 14 Jul, 2012 [facility] [place] [facility] [address] [id number] [place] [address] 10 Jul, 2012 [facility] [place] [facility] [address] [id number] [place] [address] Jun, [facility] [place] [facility] [address] [id number] [place] [address] Jun, [facility] [place] [facility] [address] [id number] [place] [address] 31 May, 2012 [facility] [place] [facility] [address] [id number] [place] [address] May, [facility] [place] [facility] [address] [id number] [place] [address] May, [facility] [place] [facility] [address] [id number] [place] [address] May, [facility] [place] [facility] [address] [id number] [place] [address] 10 May, 2012 [facility] [address] [id number] [place] [address] May, [facility] [address] [id number] [place] [address] Apr, [facility] [address] [id number] [place] [address] Apr, [facility] [address] [id number] [place] [address] March, [facility] [address] [id number] [place] [address] March, [facility] [address] [id number] [place] [address] March, [facility] [address] [id number] [place] [address] March, [facility] [address] [id number] [place] [address] March, [facility] [address] [id number] [place] [address] March, [facility] [address] [id number] [place] [address] 30 Feb, 2012 [facility] [address] [id number] [place] [address] Feb, [facility] [address] [id number] [place] [address] Feb, [facility] [address] [id number] [place] [address] Feb, [facility] [address] [id number] [place] [address] Feb, [facility] [address] [id number] [place] [address] Feb, [facility] [place] [facility] [address] [id number] [place] [address] 10 Feb, 2012 [facility] [place] [facility] [address] [id number] [place] [address] Feb, [facility] [place] [facility] [address] [id number] [place] [address] 04 Feb, 2012 [facility] [place] [facility] [address] [id number] [place] [address] 30 Jan, 2012 [facility] [place] [facility] [address] [id number] [place] [address] 27 Jan, 2012 [facility] [place] [facility] [address] [id number] [place] [address] 26 Jan, 2012 [facility] [place] [facility] [address] [id number] [place] [address] Jan, [facility] [place] [facility] [address] [id number] [place] [address] Jan, [facility] [place] [facility] [address] [id number] [place] [address] Jan, [facility] [place] [facility] [address] [id number] [place] [address] 14 Jan, 2012 [facility] [place] [facility] [address] [id number] [place] [address] Jan, [facility] [place] [facility] [address] [id number], [place] [address] Jan, [facility] [place] [facility] [address] [id number] [place] [address] 08 Jan, 2012 [facility] [place] [facility] [address] [id number] [place] [address] 07 Jan, 2012 [facility] [place] [facility] [address] [id number] [place] [address] 06 Jan, 2012 [facility] [place] [facility] [address] [id number], [place] [address] Jan, [facility] [address] [id number] [place] [address] Jan, [facility] [place] [facility] [address] [id number] [place] [address] 28 Dec, 2011 [facility] [place] [facility] [address] [facility] [id number] [place] [address] Dec, [facility] [place] [facility] [address] [id number] [place] [address] 25 Dec, 2011 [facility] [address] [id number] [place] [address] 23 Dec, 2011 [facility] [place] [facility] [address] [id number] [place] [address] 16 Dec, 2011 [facility] [address] [id number] [address] 08 Dec, 2011 [facility] [address] [facility] [id number] [place] [address] 08 Dec, 2011 [facility] [place] [facility] [id number] [place] [address] 07 Dec, 2011 [facility] [address] [id number] [place] [address] 07 Dec, 2011 [facility] [place] [facility] [address] [id number] [place] [address] Nov, [facility] [place] [facility] [address] [id number] [place] [address] Nov, [facility] [place] [facility] [address] [id number] [place] [address] Nov, [facility] [place] [facility] [address] [facility] [id number] [place] [address] Nov, [facility] [place] [facility] [address] [id number] [place] [address] Oct, [facility] [place] [facility] [address] [id number] [place] [address] Oct, [facility] [place] [facility] [address] [id number] [place] [address] Oct, [facility] [place] [facility] [address] [id number] [place] [address] Oct, [facility] [place] [facility] [address] [id number] [place] [address] Oct, [facility] [place] [facility] [address] [id number] [place] [address] Oct, [facility] [place] [facility] [address] [id number] [place] [address] Oct, [facility] [place] [facility] [address] [id number] [place] [address] Sep, [facility] [place] [facility] [address] [id number] [place] [address] Sep, [facility] [place] [facility] [address] [id number] [place] [address] Sep, [facility] [place] [facility] [address] [id number] [place] [address] Sep, [facility] [place] [facility] [address] [id number] [place] [address] Sep, [facility] [place] [facility] [address] [id number] [place] [address] Sep, [facility] [place] [facility] [address] [id number] [place] [address] Sep, [facility] [place] [facility] [address] [id number] [place] [address] Sep, [facility] [place] [facility] [address] [id number] [place] [address] Sep, [facility] [place] [facility] [address] [id number] [place] [address] 30 Aug, 2011 [facility] [address] [id number] [place] [address] 28 Aug, 2011 [facility] [address] [id number] [place] [address] 27 Aug, 2011 [facility] [address] [id number] [place] [address] 19 May, 2011 [facility] [place] [facility] [address] [id number] [place] [address] 13 Nov, 2010 [facility] [address] [id number] [place] [address], [place] [address] 31 Oct, 2010 [facility] [place] [facility] [address] [id number] [place] [address] 30 Oct, 2010 [facility] [address] [id number] [place] [address] 30 Oct, 2010 [facility] [place] [facility] [address] [id number] [place] [address] Oct, [facility] [address] [id number] [place] [address] Oct, [facility] [address] [facility] [id number] [place] [address] Sep, [facility] [address] [id number] [place] [address] 02 Sep, 2010 [facility] [place] [facility] [address] [id number] [place] [address] 14 Jul, 2010 [facility] [place] [facility] [address] [id number] [place] [address] Oct, [facility] [place] [facility] [address] [id number] [place] [address] Oct, [facility] [place] [facility] [address] [facility] [id number] [place] [address] 04 Oct, 2009 [facility] [place] [facility] [address] [id number] [address] Oct, [facility] [id number], [place] [address] Sep, [facility] [id number], [place] [address] Sep, [facility] [id number], [place] [address] Sep, [facility] [id number], [place] [address] Sep, [facility] [id number] [place] [address] Sep, [facility] [id number], [place] [address] Jul, [facility] [id number], [place] [address] Apr, [facility] [address] [id number] [id number] Dec, IMMUNIZATIONS No Known Immunizations SOCIAL HISTORY Never Assessed REASON FOR VISIT PLAN OF CARE VITAL SIGNS Height 67 in 2015-02-09 Weight 217.44 lbs 2015-02-09 Temperature 98.3 degrees Fahrenheit 2015-02-09 Heart Rate 82 bpm 2015-02-09 Respiratory Rate 20 2015-02-09 Blood pressure systolic 126 mmHg 2015-02-09 Blood pressure diastolic 82 mmHg 2015-02-09 MEDICATIONS Unknown Medications RESULTS No Results PROCEDURES Procedure Date Ordered Result Body Site COMPLETE CBC W/AUTO DIFF WBC February 09, 2015 URINE CULTURE/COLONY COUNT February 09, 2015 ASSAY OF LIPASE February 09, 2015 ASSAY OF AMYLASE February 09, 2015 CT ABDOMEN W/O DYE February 09, 2015 URINALYSIS, AUTO, W/O SCOPE February 09, 2015 DEBRIDE NAIL, 6 OR MORE February 09, 2015 VENIPUNCT, ROUTINE* February 09, 2015 INSTRUCTIONS MEDICATIONS ADMINISTERED No Known Medications MEDICAL (GENERAL) HISTORY Type Description Date Medical History hypertension Medical History hyperlipidemia Medical History diabetes type II Medical History COPD Medical History asthma Medical History rt foot amputated Surgical History hysterectomy Surgical History arthritis surgery Surgical History rt foot amputation 08/20/18 Surgical History colonoscopy 07/30/2018 Hospitalization History surgeries Hospitalization History rt foot amputation 08/20/18 Hospitalization History UTI 11/26/18
--- OUTSIDE RECORDS SUMMARY | 2019-06-14 11:04 | XMS REPORT ---
Author Author ETELVINA LEONARD Organization [facility] Address [address] [place] [address] Care Team Providers Care Senior C Software Developer Name Role Phone ETELVINA LEONARD Unavailable PROBLEMS Type Condition ICD9-CM Code HJK35-JD Code Onset Dates Condition Status SNOMED Code Problem Acquired hypothyroidism E03.9 Active 062619043 Problem Prediabetes R73.03 Active 874096450 Problem Essential hypertension I10 Active 41589045 Problem Mixed hyperlipidemia E78.2 Active 597698859 Problem Gastroesophageal reflux disease, esophagitis presence not specified K21.9 Active 240594616 Problem Reactive depression F32.9 Active 88940921 Problem Lumbago with sciatica, right side M54.41 Active [id number] Problem Lumbago with sciatica, left side M54.42 Active 917453204 Problem Cigarette nicotine dependence without complication F17.210 Active 63693907 Problem DM neuro manif type II E11.49 Active 54795701 Problem Seizures R56.9 Active 17151459 Problem Adjustment disorder with disturbance of emotion F43.29 Active 68265165 Problem Chronic obstructive pulmonary disease, unspecified COPD type J44.9 Active 97435038 Problem Major depressive disorder, recurrent, moderate F33.1 Active 931581980 Problem Other chronic pain G89.29 Active 12027545 Problem Iron deficiency anemia due to chronic blood loss D50.0 Active 099479982 Problem Seasonal allergies J30.2 Active 925775789 Problem Sinusitis J32.9 Active 94157567 Problem Chronic pain G89.29 Active 50763708 ALLERGIES No Information ENCOUNTERS Encounter Location Date Diagnosis [facility] [address], [place] [address] Jun, [facility] [address] [address] May, [facility] [id number] [place] [address] May, [facility] [id number] [place] [address] May, [facility] [id number] [place] [address] May, Bronchitis J40 [facility] [id number] [place] [address] May, Major depressive disorder, recurrent, moderate F33.1 and Adjustment disorder with disturbance of emotion F43.29 [place] [id number] [place] [address] Apr, [place] [id number] [place] [address] Apr, Type 2 diabetes mellitus with hyperglycemia E11.65 [place] [address] [address] 17 Apr, 2019 Type 2 diabetes mellitus with hyperglycemia E11.65 [facility] [id number] [place] [address] 14 Apr, 2019 Major depressive disorder, recurrent, moderate F33.1 and Adjustment disorder with disturbance of emotion F43.29 [place] [id number] [place] [address] Apr, [facility] [id number] [place] [address] Apr, Diarrhea, unspecified type R19.7 [place] [id number] [place] [address] Apr, Low back pain M54.5 ; Other chronic pain G89.29 and Anemia, unspecified type D64.9 [place] [id number] [place] [address] Apr, [facility] [id number] [place] [address] Apr, Diarrhea, unspecified type R19.7 and Lumbar radiculopathy, chronic M54.16 [facility] [address] [address] March, Non-intractable vomiting with nausea, unspecified vomiting type R11.2 and Muscle cramps R25.2 [place] [address] [address] March, [place] [address] [address] March, Other chronic pain G89.29 [place] [address] [address] March, Type 2 diabetes mellitus with hyperglycemia E11.65 ; Flank pain R10.9 ; Acute cystitis without hematuria N30.00 ; Chronic obstructive pulmonary disease, unspecified COPD type J44.9 and Moderate episode of recurrent major depressive disorder F33.1 [place] [address] [address] March, [facility] [place] [address] [address] March, Wheezing R06.2 and Viral upper respiratory tract infection J06.9 [place] [address] [address] Feb, [place] [address] [address] Feb, [place] [address] [address] Jan, [facility] [address] [address] Jan, Acute cystitis with hematuria N30.01 and Dysuria R30.0 [place] [address] [address] Jan, [facility] [address] [facility] [id number], [place] [address] Dec, [facility] [address], [place] [address] Dec, [facility] [address] [facility] [id number], [place] [address] Dec, [facility] [address], [place] [address] Dec, [facility] [id number], [place] [address] Dec, Routine adult health maintenance Z00.00 ; Chronic obstructive pulmonary disease, unspecified COPD type J44.9 and Encounter for immunization Z23 [facility] [address], [place] [address] Nov, [facility] [address], [place] [address] Nov, UTI (urinary tract infection) N39.0 and Other chronic pain G89.29 [facility] [address], [place] [address] Nov, [facility] [id number], [place] [address] Nov, [facility] [id number], [place] [address] Nov, Painful urination R30.9 and UTI (urinary tract infection) N39.0 [facility] [address] [facility] [id number], [place] [address] Nov, [facility] [id number], [place] [address] Nov, UTI (urinary tract infection) N39.0 [facility] [id number] [address] Nov, Dysuria R30.0 ; UTI (urinary tract infection) N39.0 and Chronic pain G89.29 [place] [id number] [place] [address] Nov, [place] [id number] [place] [address] Oct, Cough R05 [place] [address] [address] 14 Oct, 2018 Sinusitis J32.9 [place] [address] [address] Oct, [place] [address] [address] Oct, UTI (urinary tract infection) N39.0 and URI (upper respiratory infection) J06.9 [place] [address] [address] Sep, Pain in thoracic spine M54.6 [place] [id number] [place] [address] Sep, Type 2 diabetes mellitus with hyperglycemia E11.65 [place] [id number] [place] [address] Sep, Chronic obstructive pulmonary disease, unspecified COPD type J44.9 ; Abrasion of right ear canal, initial encounter S00.411A ; Cigarette nicotine dependence without complication F17.210 ; Right leg pain M79.604 and Seasonal allergies J30.2 [place] [id number] [place] [address] Aug, [place] [address] [address] Aug, [place] [id number] [place] [address] Aug, Pain in thoracic spine M54.6 [place] [address] [address] Aug, [place] [id number] [place] [address] Aug, Chronic obstructive pulmonary disease, unspecified COPD type J44.9 ; Complete amputation of right foot, 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 ; Cigarette nicotine dependence without complication F17.210 and BMI 40.0-44.9, adult Z68.41 [place] [address] [address] Jul, [place] [address] [address] Jul, [address] [address] Jul, Onychomycosis B35.1 ; Onychocryptosis L60.0 and DM neuro manif type II E11.49 [place] [id number] [place] [address] Jun, Pain in thoracic spine M54.[address] [address] Jun, Iron deficiency anemia due to chronic blood loss D50.0 and Hematochezia K92.1 [place] [id number] [place] [address] Jun, Gastroenteritis K52.9 and Abnormal RBC indices R71.8 [place] [id number] [place] [address] Jun, [place] [id number] [place] [address] Jun, Chest congestion R09.89 and Seizures R56.9 [place] [id number] [place] [address] May, Pain in thoracic spine M54.[address] [address] May, [facility] [address], [place] [address] May, [facility] [address] [facility] [id number] [place] [address] May, [facility] [id number] [place] [address] May, Acute non-recurrent frontal sinusitis J01.[address] [facility] [id number] [place] [address] May, [facility] [id number] [place] [address] May, Pain in thoracic spine M54.6 [facility] [id number] [place] [address] May, [facility] [id number] [place] [address] May, Acute nasopharyngitis J00 [facility] [id number] [place] [address] May, [facility] [id number] [place] [address] May, [facility] [id number] [place] [address] Apr, [facility] [id number] [place] [address] Apr, [facility] [id number] [place] [address] Apr, [facility] [id number] [place] [address] Apr, [facility] [address] [place] [address] Apr, Pain in right ankle and joints of right foot M25.571 [place] [id number] [place] [address] Apr, [place] [address] [address] 18 Apr, 2018 Bronchitis J40 ; Pain in right ankle and joints of right foot M25.571 ; Other chronic pain G89.29 ; Prediabetes R73.03 ; Chronic obstructive pulmonary disease, unspecified COPD type J44.9 and Cigarette nicotine dependence without complication F17.210 [facility] [id number] [place] [address] 13 Apr, 2018 Seasonal allergic rhinitis, unspecified trigger J30.2 [place] [address] [address] 08 Apr, 2018 Onychomycosis B35.1 ; Onychocryptosis L60.0 and DM neuro manif type II E11.[address] [address] Apr, Reactive depression F32.9 ; Thoracic myofascial strain, initial encounter S29.019A and Leg cramps R25.2 [place] [address] [address] March, [place] [address] [address] March, Type 2 diabetes mellitus with hyperglycemia E11.65 [place] [id number] [place] [address] March, Reactive depression F32.[address] [address] March, Pain in thoracic spine M54.6 and Other chronic pain G89.29 [place] [address] [address] Feb, [place] [address] [address] Jan, Reactive depression F32.9 ; Essential hypertension I10 ; Gastroesophageal reflux disease, esophagitis presence not specified K21.9 ; Lumbago with sciatica, left side M54.42 and Lumbago with sciatica, right side M54.41 [place] [address] [address] Jan, Reactive depression F32.9 and Pharyngoesophageal dysphagia R13.14 [place] [address] [address] Jan, [place] [address] [address] Jan, Encounter for immunization Z23 [address] [address] Jan, Onychomycosis B35.1 and DM neuro manif type II E11.49 [place] [address] [address] Jan, [place] [address] [address] Jan, Prediabetes R73.03 [place] [address] [address] Dec, [place] [address] [address] Dec, Essential hypertension I10 ; Mixed hyperlipidemia E78.2 ; Acquired hypothyroidism E03.9 ; Reactive depression F32.9 and Prediabetes R73.03 [place] [address] [address] Dec, [place] [address] [address] Dec, [place] [address] [address] Dec, DM neuro manif type II E11.49 [facility] [address], [place] [address] Dec, Bruise T14.8XXA ; Type 2 diabetes mellitus with hyperglycemia E11.65 and 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 [address], [place] [address] Oct, [facility] [id number] [place] [address] March, Onychomycosis B35.1 and DM neuro manif type II E11.49 [facility] [id number] [place] [address] Jun, [facility] [id number] [place] [address] Jun, [facility] [id number] [place] [address] Jun, COPD with acute exacerbation 491.21 [facility] [id number] [place] [address] Apr, [facility] [id number] [place] [address] Feb, [facility] [address], [place] [address] Feb, [facility] [id number] [place] [address] Jan, [facility] [address], [place] [address] Jan, [facility] [id number] [place] [address] Jan, [facility] [address], [place] [address] Jan, [facility] [id number] [place] [address] 24 Jan, 2014 [facility] [place] [facility] [address] [id number] [place] [address] 23 Jan, 2014 [facility] [place] [facility] [address] [id number] [place] [address] 23 Jan, 2014 [facility] [place] [facility] [address] [id number] [place] [address] 23 Jan, 2014 [facility] [place] [facility] [address] [id number] [place] [address] 23 Jan, 2014 [facility] [place] [facility] [address] [id number] [place] [address] 19 Jan, 2014 [facility] [place] [facility] [address] [id number] [place] [address] 19 Jan, 2014 [facility] [place] [facility] [address] [id number] [place] [address] 18 Jan, 2015 [facility] [place] [facility] [address] [id number] [place] [address] 18 Jan, 2014 [facility] [place] [facility] [address] [id number] [place] [address] 16 Jan, 2014 [facility] [place] [facility] [address] [id number] [place] [address] 16 Jan, 2014 [facility] [place] [facility] [address] [id number] [place] [address] 16 Jan, 2014 [facility] [place] [facility] [address] [id number] [place] [address] 16 Jan, 2014 [facility] [place] [facility] [address] [id number] [place] [address] 15 Jan, 2014 [facility] [place] [facility] [address] [id number] [place] [address] 13 Jan, 2014 [facility] [place] [facility] [address] [id number] [place] [address] 13 Jan, 2014 [facility] [place] [facility] [address] [id number] [place] [address] 13 Jan, 2014 [facility] [place] [facility] [address] [id number] [place] [address] 13 Jan, 2015 [facility] [place] [facility] [address] [id number] [place] [address] 12 Jan, 2015 [facility] [place] [facility] [address] [id number] [place] [address] Jan, [facility] [place] [facility] [address] [id number] [place] [address] Jan, [facility] [place] [facility] [address] [id number] [place] [address] 24 Dec, 2014 [facility] [place] [facility] [address] [facility] [id number] [place] [address] 24 Dec, 2014 [facility] [place] [facility] [address] [facility] [id number] [place] [address] Dec, 2014 [facility] [place] [facility] [address] [facility] [id number] [place] [address] Dec, [facility] [place] [facility] [address] [facility] [id number] [place] [address] Dec, 2014 [facility] [place] [facility] [address] [facility] [id number] [place] [address] Dec, 2014 [facility] [place] [facility] [address] [facility] [id number], [place] [address] Dec, 2014 [facility] [place] [facility] [address] [facility] [id number] [place] [address] Dec, 2014 [facility] [place] [facility] [address] [facility] [id number] [place] [address] Dec, 2014 [facility] [place] [facility] [address] [facility] [id number] [place] [address] Dec, 2014 [facility] [place] [facility] [address] [facility] [id number], [place] [address] Dec, [facility] [address] [id number] [place] [address] Dec, [facility] [place] [facility] [address] [id number] [place] [address] Nov, [facility] [place] [facility] [address] [id number] [place] [address] Nov, [facility] [place] [facility] [address] [id number] [place] [address] Nov, [facility] [place] [facility] [address] [id number] [place] [address] Nov, [facility] [place] [facility] [address] [id number] [place] [address] Nov, [facility] [address] [id number] [place] [address] Nov, [facility] [place] [facility] [address] [id number] [place] [address] Nov, [facility] [place] [facility] [address] [id number] [place] [address] Nov, [facility] [place] [facility] [address] [facility] [id number] [place] [address] Nov, [facility] [place] [facility] [address] [id number] [place] [address] Nov, [facility] [place] [facility] [address] [id number], [place] [address] Nov, [facility] [place] [facility] [address] [id number] [place] [address] Nov, [facility] [place] [facility] [address] [id number] [place] [address] Oct, [facility] [place] [facility] [address] [id number], [place] [address] Oct, [facility] [place] [facility] [address] [id number] [place] [address] 30 Oct, 2014 [facility] [place] [facility] [address] [id number] [place] [address] 30 Oct, 2014 [facility] [place] [facility] [address] [id number] [place] [address] Oct, [facility] [place] [facility] [address] [id number] [place] [address] Oct, [facility] [place] [facility] [address] [id number] [place] [address] Oct, [facility] [place] [facility] [address] [id number] [place] [address] Oct, [facility] [place] [facility] [address] [id number] [place] [address] 17 Oct, 2014 [facility] [place] [facility] [address] [id number] [place] [address] 17 Oct, 2014 [facility] [place] [facility] [address] [id number] [place] [address] 16 Oct, 2014 [facility] [place] [facility] [address] [id number] [place] [address] 16 Oct, 2014 [facility] [place] [facility] [address] [id number] [place] [address] 15 Oct, 2014 [facility] [place] [facility] [address] [id number] [place] [address] 15 Oct, 2014 [facility] [place] [facility] [address] [id number] [place] [address] 08 Oct, 2014 [facility] [place] [facility] [address] [id number] [place] [address] Sep, [facility] [place] [facility] [address] [id number] [place] [address] Sep, [facility] [place] [facility] [address] [id number] [place] [address] Sep, [facility] [place] [facility] [address] [id number] [place] [address] Sep, [facility] [place] [facility] [address] [id number] [place] [address] Aug, [facility] [place] [facility] [address] [id number] [place] [address] Aug, [facility] [place] [facility] [address] [id number] [place] [address] Aug, [facility] [place] [facility] [address] [id number] [place] [address] Aug, [facility] [place] [facility] [address] [id number] [place] [address] Aug, [facility] [place] [facility] [address] [id number] [place] [address] Aug, [facility] [place] [facility] [address] [id number] [place] [address] 29 Jul, 2014 [facility] [place] [facility] [address] [id number] [place] [address] 29 Jul, 2014 [facility] [place] [facility] [address] [id number] [place] [address] 15 Jul, 2014 [facility] [place] [facility] [address] [id number] [address] 15 Jul, 2014 [facility] [place] [facility] [address] [id number], [place] [address] 08 Jul, 2014 [facility] [place] [facility] [address] [id number] [place] [address] 08 Jul, 2014 [facility] [place] [facility] [address] [id number] [place] [address] Jun, [facility] [place] [facility] [address] [id number] [place] [address] Jun, [facility] [place] [facility] [address] [id number] [place] [address] Jun, [facility] [place] [facility] [address] [id number] [place] [address] Jun, [facility] [place] [facility] [address] [id number] [place] [address] Jun, [facility] [place] [facility] [address] [id number] [place] [address] Jun, [facility] [place] [facility] [address] [id number] [place] [address] Jun, [facility] [place] [facility] [address] [id number] [place] [address] May, [facility] [place] [facility] [address] [id number] [place] [address] May, [facility] [place] [facility] [address] [id number] [place] [address] May, [facility] [place] [facility] [address] [id number] [place] [address] May, [facility] [place] [facility] [address] [id number] [place] [address] May, [facility] [place] [facility] [address] [id number] [place] [address] May, [facility] [place] [facility] [address] [id number] [place] [address] May, [facility] [place] [facility] [address] [id number] [place] [address] May, [facility] [place] [facility] [address] [id number] [place] [address] May, [facility] [place] [facility] [address] [id number] [place] [address] May, [facility] [place] [facility] [address] [id number] [place] [address] May, [facility] [place] [facility] [address] [id number] [place] [address] May, [facility] [place] [facility] [address] [id number] [place] [address] Apr, [facility] [place] [facility] [address] [id number] [place] [address] Apr, [facility] [place] [facility] [address] [id number] [place] [address] Apr, [facility] [place] [facility] [address] [id number] [place] [address] Apr, [facility] [place] [facility] [address] [id number] [place] [address] Apr, [facility] [place] [facility] [address] [id number] [place] [address] Apr, [facility] [place] [facility] [address] [id number] [place] [address] Apr, [facility] [place] [facility] [address] [id number] [place] [address] Apr, [facility] [place] [facility] [address] [id number] [place] [address] Apr, [facility] [place] [facility] [address] [id number] [place] [address] Apr, [facility] [place] [facility] [address] [id number] [place] [address] March, [facility] [place] [facility] [address] [id number] [place] [address] March, [facility] [place] [facility] [address] [id number] [place] [address] March, [facility] [place] [facility] [address] [id number] [place] [address] March, [facility] [place] [facility] [address] [id number] [place] [address] March, [facility] [place] [facility] [address] [id number] [place] [address] March, [facility] [place] [facility] [address] [id number] [place] [address] Feb, [facility] [place] [facility] [address] [id number] [place] [address] Feb, [facility] [place] [facility] [address] [id number] [place] [address] Feb, [facility] [place] [facility] [address] [id number] [place] [address] Feb, [facility] [place] [facility] [address] [id number] [place] [address] Feb, [facility] [place] [facility] [address] [id number] [place] [address] Feb, [facility] [place] [facility] [address] [id number] [place] [address] Feb, [facility] [place] [facility] [address] [id number] [place] [address] Feb, [facility] [place] [facility] [address] [id number] [place] [address] Feb, [facility] [place] [facility] [address] [id number] [place] [address] Feb, [facility] [place] [facility] [address] [id number] [place] [address] Jan, [facility] [place] [facility] [address] [id number] [place] [address] Jan, [facility] [place] [facility] [address] [id number] [place] [address] Jan, [facility] [place] [facility] [address] [id number] [place] [address] Jan, [facility] [place] [facility] [address] [id number] [place] [address] Jan, [facility] [place] [facility] [address] [id number] [place] [address] Jan, [facility] [place] [facility] [address] [id number] [place] [address] Jan, [facility] [place] [facility] [address] [id number] [place] [address] Jan, [facility] [place] [facility] [address] [id number] [place] [address] Dec, [facility] [place] [facility] [address] [id number] [place] [address] Dec, [facility] [place] [facility] [address] [id number] [place] [address] Dec, [facility] [place] [facility] [address] [id number] [place] [address] Dec, [facility] [place] [facility] [address] [id number] [place] [address] Dec, [facility] [place] [facility] [address] [id number] [place] [address] Dec, [facility] [place] [facility] [address] [id number] [place] [address] Dec, [facility] [place] [facility] [address] [id number] [place] [address] Dec, [facility] [place] [facility] [address] [id number] [place] [address] Nov, [facility] [place] [facility] [address] [id number] [place] [address] Nov, [facility] [place] [facility] [address] [id number] [place] [address] Nov, [facility] [place] [facility] [address] [id number], [place] [address] Nov, [facility] [place] [facility] [address] [id number] [place] [address] Nov, [facility] [place] [facility] [address] [id number] [place] [address] Nov, [facility] [place] [facility] [address] [id number] [place] [address] Nov, [facility] [place] [facility] [address] [id number] [place] [address] Nov, [facility] [place] [facility] [address] [id number] [place] [address] Nov, [facility] [place] [facility] [address] [id number] [place] [address] Nov, [facility] [place] [facility] [address] [id number] [place] [address] Nov, [facility] [place] [facility] [address] [id number] [place] [address] Oct, [facility] [place] [facility] [address] [id number] [place] [address] Oct, [facility] [place] [facility] [address] [id number] [place] [address] Oct, [facility] [place] [facility] [address] [id number], [place] [address] Oct, [facility] [place] [facility] [address] [id number], [place] [address] Sep, [facility] [place] [facility] [address] [id number] [place] [address] Sep, [facility] [place] [facility] [address] [id number] [place] [address] Sep, [facility] [place] [facility] [address] [id number] [place] [address] Sep, [facility] [place] [facility] [address] [id number] [place] [address] Aug, 2012 [facility] [place] [facility] [address] [id number] [place] [address] Aug, [facility] [place] [facility] [address] [id number] [place] [address] Aug, [facility] [place] [facility] [address] [id number] [place] [address] Aug, 2012 [facility] [place] [facility] [address] [id number] [place] [address] Aug, 2012 [facility] [place] [facility] [address] [id number] [place] [address] Aug, [facility] [place] [facility] [address] [id number] [place] [address] Aug, [facility] [place] [facility] [address] [id number] [place] [address] Aug, [facility] [place] [facility] [address] [id number] [place] [address] 28 Jul, 2012 [facility] [place] [facility] [address] [id number] [place] [address] 27 Sep, 2012 [facility] [place] [facility] [address] [id number] [place] [address] 26 Sep, 2012 [facility] [place] [facility] [address] [id number] [place] [address] 24 Sep, 2012 [facility] [place] [facility] [address] [id number] [place] [address] 24 Sep, 2012 [facility] [place] [facility] [address] [id number] [place] [address] 23 Sep, 2012 [facility] [place] [facility] [address] [id number] [place] [address] 19 Sep, 2012 [facility] [place] [facility] [address] [id number] [place] [address] 18 Sep, 2012 [facility] [place] [facility] [address] [id number] [place] [address] 17 Jul, 2012 [facility] [place] [facility] [address] [id number] [place] [address] 16 Jul, 2012 [facility] [place] [facility] [address] [id number] [place] [address] 13 Jul, 2012 [facility] [place] [facility] [address] [id number] [place] [address] 13 Jul, 2012 [facility] [place] [facility] [address] [id number] [place] [address] 12 Jul, 2012 [facility] [place] [facility] [address] [id number] [place] [address] 11 Jul, 2013 [facility] [place] [facility] [address] [id number] [place] [address] 04 Jul, 2013 [facility] [place] [facility] [address] [id number] [place] [address] 30 Jun, 2013 [facility] [place] [facility] [address] [id number] [place] [address] Jun, [facility] [place] [facility] [address] [id number] [place] [address] Jun, [facility] [place] [facility] [address] [id number] [place] [address] May, [facility] [place] [facility] [address] [id number], [place] [address] May, [facility] [place] [facility] [address] [id number] [place] [address] May, [facility] [place] [facility] [address] [id number] [place] [address] May, [facility] [place] [facility] [address] [id number] [place] [address] Apr, [facility] [place] [facility] [address] [id number] [place] [address] 10 Apr, [address] [facility] [address] [id number] [place] [address] Apr, [facility] [address] [id number] [place] [address] Apr, [facility] [address] [id number] [place] [address] March, [facility] [place] [facility] [address] [id number] [place] [address] March, [facility] [address] [id number] [place] [address] March, [facility] [address] [id number] [place] [address] Feb, [facility] [address] [id number] [place] [address] Feb, [facility] [address] [id number] [place] [address] Jan, [facility] [address] [id number] [place] [address] Jan, [facility] [address] [facility] [id number] [place] [address] Jan, [facility] [address] [id number] [place] [address] Jan, [facility] [place] [facility] [address] [id number] [place] [address] Jan, [facility] [place] [facility] [address] [id number] [place] [address] Dec, [facility] [place] [facility] [address] [id number] [place] [address] Dec, [facility] [place] [facility] [address] [id number] [place] [address] Dec, [facility] [place] [facility] [address] [id number] [place] [address] Dec, [facility] [place] [facility] [address] [id number] [place] [address] Dec, [facility] [address] [id number] [place] [address] Dec, [facility] [place] [facility] [address] [id number] [place] [address] Dec, [facility] [address] [id number] [place] [address] Dec, [facility] [address] [id number] [place] [address] Nov, [facility] [address] [id number] [place] [address] Nov, [facility] [address] [id number] [place] [address] Nov, [facility] [address] [id number] [place] [address] Nov, [facility] [address] [id number] [place] [address] Nov, [facility] [place] [facility] [address] [id number] [place] [address] Nov, [facility] [place] [facility] [address] [id number], [place] [address] Nov, [facility] [place] [facility] [address] [id number] [place] [address] Oct, [facility] [place] [facility] [address] [id number] [place] [address] Oct, [facility] [place] [facility] [address] [id number] [place] [address] Oct, [facility] [place] [facility] [address] [id number] [place] [address] 12 Oct, 2012 [facility] [place] [facility] [address] [id number] [place] [address] Oct, [facility] [place] [facility] [address] [id number] [place] [address] 05 Oct, 2012 [facility] [place] [facility] [address] [id number] [place] [address] Oct, [facility] [place] [facility] [address] [id number] [place] [address] Oct, [facility] [place] [facility] [address] [id number] [place] [address] Sep, [facility] [place] [facility] [address] [id number] [place] [address] Sep, [facility] [place] [facility] [address] [id number] [place] [address] Sep, [facility] [place] [facility] [address] [id number] [place] [address] Sep, [facility] [place] [facility] [address] [id number] [place] [address] Sep, [facility] [place] [facility] [address] [facility] [id number] [place] [address] Sep, [facility] [place] [facility] [address] [id number] [place] [address] Sep, [facility] [place] [facility] [address] [id number], [place] [address] Sep, [facility] [place] [facility] [address] [id number] [place] [address] Sep, [facility] [place] [facility] [address] [id number] [place] [address] Sep, [facility] [place] [facility] [address] [facility] [id number], [place] [address] Sep, [facility] [place] [facility] [address] [id number] [place] [address] Sep, [facility] [place] [facility] [address] [id number] [place] [address] Sep, [facility] [place] [facility] [address] [id number] [place] [address] Sep, [facility] [place] [facility] [address] [id number] [place] [address] Sep, [facility] [place] [facility] [address] [id number] [place] [address] Sep, [facility] [place] [facility] [address] [id number] [place] [address] Sep, [facility] [place] [facility] [address] [id number] [place] [address] Sep, [facility] [place] [facility] [address] [id number] [place] [address] Sep, [facility] [place] [facility] [address] [id number] [place] [address] Sep, [facility] [place] [facility] [address] [id number] [place] [address] Aug, [facility] [place] [facility] [address] [id number] [place] [address] Aug, [facility] [place] [facility] [address] [id number] [place] [address] 29 Aug, 2012 [facility] [place] [facility] [address] [id number] [place] [address] Aug, [facility] [place] [facility] [address] [id number] [place] [address] Aug, [facility] [place] [facility] [address] [id number] [place] [address] 18 Aug, 2012 [facility] [place] [facility] [address] [id number] [place] [address] 18 Aug, 2012 [facility] [place] [facility] [address] [id number] [place] [address] 17 Aug, 2012 [facility] [place] [facility] [address] [id number] [place] [address] 16 Aug, 2012 [facility] [place] [facility] [address] [id number] [place] [address] 16 Aug, 2012 [facility] [place] [facility] [address] [id number] [place] [address] 15 Aug, 2012 [facility] [place] [facility] [address] [id number] [place] [address] Aug, [facility] [place] [facility] [address] [id number] [place] [address] Aug, [facility] [place] [facility] [address] [id number] [place] [address] Aug, [facility] [place] [facility] [address] [id number] [place] [address] Aug, [facility] [place] [facility] [address] [id number] [place] [address] 14 Jul, 2012 [facility] [place] [facility] [address] [id number] [place] [address] Jul, [facility] [place] [facility] [address] [id number] [place] [address] Jun, [facility] [place] [facility] [address] [id number], [place] [address] Jun, [facility] [place] [facility] [address] [id number] [place] [address] May, [facility] [place] [facility] [address] [id number] [place] [address] May, [facility] [place] [facility] [address] [id number] [place] [address] May, [facility] [place] [facility] [address] [id number] [place] [address] May, [facility] [address] [id number] [place] [address] May, [facility] [address] [id number] [place] [address] May, [facility] [address] [id number] [place] [address] Apr, [facility] [address] [id number] [place] [address] Apr, [facility] [address] [id number] [place] [address] March, [facility] [address] [id number] [place] [address] March, [facility] [address] [id number] [place] [address] March, [facility] [address] [id number] [place] [address] March, [facility] [address] [id number] [place] [address] March, [facility] [address] [id number] [place] [address] March, [facility] [address] [id number] [place] [address] 30 Feb, 2012 [facility] [address] [id number] [place] [address] Feb, [facility] [address] [id number] [place] [address] Feb, [facility] [address] [id number] [place] [address] Feb, [facility] [address] [id number] [place] [address] Feb, [facility] [address] [id number] [place] [address] 19 Feb, 2012 [facility] [place] [facility] [address] [id number] [place] [address] 10 Feb, 2012 [facility] [place] [facility] [address] [id number] [place] [address] Feb, [facility] [place] [facility] [address] [id number] [place] [address] 04 Feb, 2012 [facility] [address] [id number] [place] [address] 30 Jan, 2012 [facility] [place] [facility] [address] [id number] [place] [address] 27 Jan, 2012 [facility] [place] [facility] [address] [id number] [place] [address] 26 Jan, 2012 [facility] [place] [facility] [address] [id number] [place] [address] 22 Jan, 2012 [facility] [place] [facility] [address] [id number] [place] [address] Jan, [facility] [place] [facility] [address] [id number] [place] [address] 20 Jan, 2012 [facility] [place] [facility] [address] [id number] [place] [address] 14 Jan, 2012 [facility] [place] [facility] [address] [id number] [place] [address] Jan, [facility] [place] [facility] [address] [id number] [place] [address] Jan, [facility] [place] [facility] [address] [id number] [place] [address] 08 Jan, 2012 [facility] [place] [facility] [address] [id number] [place] [address] 07 Jan, 2012 [facility] [place] [facility] [address] [id number] [place] [address] 06 Jan, 2012 [facility] [address] [id number] [place] [address] Jan, [facility] [place] [facility] [address] [id number] [place] [address] Jan, [facility] [place] [facility] [address] [id number] [place] [address] 28 Dec, 2011 [facility] [place] [facility] [address] [id number] [place] [address] 27 Dec, 2011 [facility] [place] [facility] [address] [id number] [place] [address] 25 Dec, 2011 [facility] [place] [facility] [address] [id number] [place] [address] 23 Dec, 2011 [facility] [place] [facility] [address] [id number] [place] [address] 16 Dec, 2011 [facility] [place] [facility] [address] [id number] [place] [address] 08 Dec, 2011 [facility] [place] [facility] [address] [id number] [place] [address] 08 Dec, 2011 [facility] [place] [facility] [address] [facility] [id number] [place] [address] 07 Dec, 2011 [facility] [place] [facility] [address] [id number] [place] [address] 07 Dec, 2011 [facility] [place] [facility] [address] [id number] [place] [address] Nov, [facility] [place] [facility] [address] [id number] [place] [address] Nov, [facility] [place] [facility] [address] [id number] [place] [address] Nov, [facility] [place] [facility] [address] [facility] [id number] [place] [address] Nov, [facility] [place] [facility] [address] [id number] [place] [address] Oct, [facility] [place] [facility] [address] [id number] [place] [address] Oct, [facility] [place] [facility] [address] [id number] [place] [address] Oct, [facility] [place] [facility] [address] [id number] [place] [address] Oct, [facility] [place] [facility] [address] [id number] [place] [address] Oct, [facility] [place] [facility] [address] [id number] [place] [address] Oct, [facility] [place] [facility] [address] [id number] [place] [address] Oct, [facility] [place] [facility] [address] [id number] [place] [address] Sep, [facility] [place] [facility] [address] [id number] [place] [address] Sep, [facility] [place] [facility] [address] [id number], [place] [address] Sep, [facility] [place] [facility] [address] [id number], [place] [address] Sep, [facility] [place] [facility] [address] [id number], [place] [address] Sep, [facility] [place] [facility] [address] [id number], [place] [address] Sep, [facility] [place] [facility] [address] [id number], [place] [address] Sep, [facility] [place] [facility] [address] [id number], [place] [address] Sep, [facility] [place] [facility] [address] [id number], [place] [address] Sep, [facility] [address] [id number] [place] [address] 30 Aug, 2011 [facility] [place] [facility] [address] [id number] [place] [address] 28 Aug, 2011 [facility] [address] [id number] [place] [address] 27 Aug, 2011 [facility] [place] [facility] [address] [id number] [place] [address] May, [facility] [address] [id number] [place] [address] Nov, [facility] [place] [facility] [address] [id number] [place] [address] 31 Oct, 2010 [facility] [address] [facility] [id number] [place] [address] 30 Oct, 2010 [facility] [place] [facility] [address] [id number] [place] [address] 30 Oct, 2010 [facility] [place] [facility] [address] [facility] [id number] [place] [address] Oct, [facility] [place] [facility] [address] [facility] [id number] [place] [address] Oct, [facility] [place] [facility] [address] [facility] [id number] [place] [address] Sep, [facility] [place] [facility] [address] [id number] [place] [address] Sep, [facility] [place] [facility] [address] [id number] [place] [address] 14 Jul, 2010 [facility] [place] [facility] [address] [id number] [place] [address] 31 Oct, 2009 [facility] [place] [facility] [address] [facility] [id number] [place] [address] 09 Oct, 2009 [facility] [place] [facility] [address] [id number], [place] [address] [address], [address] [facility] [address] [id number], [place] [address] Oct, [facility] [id number] [address] Sep, [facility] [id number] [address] Sep, [facility] [id number] [address] Sep, [facility] [id number] [address] Sep, [facility] [id number] [address] Sep, [facility] [id number] [address] Jul, [facility] [address] [id number], [place] [address] Apr, [facility] [address] [id number], [place] [address] Dec, IMMUNIZATIONS No Known Immunizations SOCIAL HISTORY [...]
--- OUTSIDE RECORDS SUMMARY | 2019-06-14 11:06 | XMS REPORT ---
Author Author ETELVINA LEONARD Organization [facility] Address [address] [place] [address] Care Team Providers Care Fly Fishing Guide Name Role Phone ETELVINA LEONARD Unavailable PROBLEMS Type Condition ICD9-CM Code [id number] Code Onset Dates Condition Status SNOMED Code Problem Acquired hypothyroidism E03.9 Active 966739011 Problem Prediabetes R73.03 Active 020293754 Problem Essential hypertension I10 Active 82052014 Problem Mixed hyperlipidemia E78.2 Active 589220571 Problem Gastroesophageal reflux disease, esophagitis presence not specified K21.9 Active 946321268 Problem Reactive depression F32.9 Active 28485573 Problem Lumbago with sciatica, right side M54.41 Active [id number] Problem Lumbago with sciatica, left side M54.42 Active 028614456 Problem Cigarette nicotine dependence without complication F17.210 Active 21834022 Problem DM neuro manif type II E11.49 Active 45242301 Problem Seizures R56.9 Active 84818339 Problem Adjustment disorder with disturbance of emotion F43.29 Active 92129449 Problem Chronic obstructive pulmonary disease, unspecified COPD type J44.9 Active 65070884 Problem Major depressive disorder, recurrent, moderate F33.1 Active 636285106 Problem Other chronic pain G89.29 Active 30679424 Problem Iron deficiency anemia due to chronic blood loss D50.0 Active 116174125 Problem Seasonal allergies J30.2 Active 364684535 Problem Sinusitis J32.9 Active 88767843 Problem Chronic pain G89.29 Active 70387907 ALLERGIES No Information ENCOUNTERS Encounter Location Date Diagnosis [facility] [address], [place] [address] Jun, [facility] [address], [place] [address] May, [facility] [id number] [place] [address] May, [facility] [id number] [place] [address] May, [facility] [place] [id number] [place] [address] May, Bronchitis J40 [facility] [id number] [place] [address] May, Major depressive disorder, recurrent, moderate F33.1 and Adjustment disorder with disturbance of emotion F43.29 [place] [id number] [place] [address] Apr, [place] [id number] [place] [address] Apr, Type 2 diabetes mellitus with hyperglycemia E11.65 [place] [address] [address] 17 Apr, 2019 Type 2 diabetes mellitus with hyperglycemia E11.65 [facility] [id number] [place] [address] 14 Apr, 2019 Major depressive disorder, recurrent, moderate F33.1 and Adjustment disorder with disturbance of emotion F43.29 [place] [id number] [place] [address] Apr, [facility] [id number] [place] [address] Apr, Diarrhea, unspecified type R19.7 [place] [id number] [place] [address] Apr, Low back pain M54.5 ; Other chronic pain G89.29 and Anemia, unspecified type D64.9 [place] [id number] [place] [address] Apr, [facility] [id number] [place] [address] Apr, Diarrhea, unspecified type R19.7 and Lumbar radiculopathy, chronic M54.16 [facility] [address] [address] March, Non-intractable vomiting with nausea, unspecified vomiting type R11.2 and Muscle cramps R25.2 [place] [address] [address] March, [place] [address] [address] March, Other chronic pain G89.29 [place] [address] [address] March, Type 2 diabetes mellitus with hyperglycemia E11.65 ; Flank pain R10.9 ; Acute cystitis without hematuria N30.00 ; Chronic obstructive pulmonary disease, unspecified COPD type J44.9 and Moderate episode of recurrent major depressive disorder F33.1 [place] [address] [address] March, [facility] [place] [address] [address] March, Wheezing R06.2 and Viral upper respiratory tract infection J06.9 [place] [address] [address] Feb, [place] [address] [address] Feb, [place] [address] [address] Jan, [facility] [address] [address] Jan, Acute cystitis with hematuria N30.01 and Dysuria R30.0 [place] [address] [address] Jan, [facility] [address] [facility] [id number] [address] Dec, [facility] [address], [place] [address] Dec, [facility] [address] [facility] [id number], [place] [address] Dec, [facility] [address], [place] [address] Dec, [facility] [id number] [address] Dec, Routine adult health maintenance Z00.00 ; Chronic obstructive pulmonary disease, unspecified COPD type J44.9 and Encounter for immunization Z23 [facility] [address], [place] [address] Nov, [facility] [address], [place] [address] Nov, UTI (urinary tract infection) N39.0 and Other chronic pain G89.29 [facility] [address], [place] [address] Nov, [facility] [id number] [address] Nov, [facility] [id number] [address] Nov, Painful urination R30.9 and UTI (urinary tract infection) N39.0 [facility] [address] [facility] [id number], [place] [address] Nov, [facility] [id number] [address] Nov, UTI (urinary tract infection) N39.0 [facility] [id number] [address] Nov, Dysuria R30.0 ; UTI (urinary tract infection) N39.0 and Chronic pain G89.29 [place] [id number] [place] [address] Nov, [place] [id number] [place] [address] Oct, Cough R05 [place] [address] [address] 14 Oct, 2018 Sinusitis J32.9 [place] [address] [address] Oct, [place] [address] [address] Oct, UTI (urinary tract infection) N39.0 and URI (upper respiratory infection) J06.9 [place] [address] [address] Sep, Pain in thoracic spine M54.6 [place] [id number] [place] [address] Sep, Type 2 diabetes mellitus with hyperglycemia E11.65 [place] [id number] [place] [address] Sep, Chronic obstructive pulmonary disease, unspecified COPD type J44.9 ; Abrasion of right ear canal, initial encounter S00.411A ; Cigarette nicotine dependence without complication F17.210 ; Right leg pain M79.604 and Seasonal allergies J30.2 [place] [address] [place] [address] Aug, [place] [address] [address] Aug, [place] [id number] [place] [address] Aug, Pain in thoracic spine M54.6 [place] [address] [address] Aug, [place] [id number] [place] [address] Aug, Chronic obstructive pulmonary disease, unspecified COPD type J44.9 ; Complete amputation of right foot, 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 ; Cigarette nicotine dependence without complication F17.210 and BMI 40.0-44.9, adult Z68.41 [place] [address] [address] Jul, [place] [address] [address] Jul, [address] [address] Jul, Onychomycosis B35.1 ; Onychocryptosis L60.0 and DM neuro manif type II E11.49 [place] [id number] [place] [address] Jun, Pain in thoracic spine M54.[address] [address] Jun, Iron deficiency anemia due to chronic blood loss D50.0 and Hematochezia K92.1 [place] [id number] [place] [address] Jun, Gastroenteritis K52.9 and Abnormal RBC indices R71.8 [place] [id number] [place] [address] Jun, [place] [id number] [place] [address] Jun, Chest congestion R09.89 and Seizures R56.9 [place] [id number] [place] [address] May, Pain in thoracic spine M54.[address] [address] May, [facility] [address], [place] [address] May, [facility] [address] [facility] [id number] [place] [address] May, [facility] [id number] [place] [address] May, Acute non-recurrent frontal sinusitis J01.10 and Dermatitis L30.9 [facility] [id number] [place] [address] May, [facility] [id number] [place] [address] May, Pain in thoracic spine M54.6 [facility] [id number] [place] [address] May, [facility] [id number] [place] [address] May, Acute nasopharyngitis J00 [facility] [id number] [place] [address] May, [facility] [id number] [place] [address] May, [facility] [address] [place] [address] Apr, [facility] [address] [place] [address] Apr, [facility] [id number] [place] [address] Apr, [facility] [id number] [place] [address] Apr, [facility] [address] [place] [address] Apr, Pain in right ankle and joints of right foot M25.571 [place] [id number] [place] [address] Apr, [place] [address] [address] 18 Apr, 2018 Bronchitis J40 ; Pain in right ankle and joints of right foot M25.571 ; Other chronic pain G89.29 ; Prediabetes R73.03 ; Chronic obstructive pulmonary disease, unspecified COPD type J44.9 and Cigarette nicotine dependence without complication F17.210 [facility] [id number] [place] [address] 13 Apr, 2018 Seasonal allergic rhinitis, unspecified trigger J30.2 [place] [address] [address] 08 Apr, 2018 Onychomycosis B35.1 ; Onychocryptosis L60.0 and DM neuro manif type II E11.[address] [address] Apr, Reactive depression F32.9 ; Thoracic myofascial strain, initial encounter S29.019A and Leg cramps R25.2 [place] [address] [address] March, [place] [address] [address] March, Type 2 diabetes mellitus with hyperglycemia E11.65 [place] [id number] [place] [address] March, Reactive depression F32.[address] [address] March, Pain in thoracic spine M54.6 and Other chronic pain G89.29 [place] [address] [address] Feb, [place] [address] [address] Jan, Reactive depression F32.9 ; Essential hypertension I10 ; Gastroesophageal reflux disease, esophagitis presence not specified K21.9 ; Lumbago with sciatica, left side M54.42 and Lumbago with sciatica, right side M54.41 [place] [address] [address] Jan, Reactive depression F32.9 and Pharyngoesophageal dysphagia R13.14 [place] [address] [address] Jan, [place] [address] [address] Jan, Encounter for immunization Z23 [address] [address] Jan, Onychomycosis B35.1 and DM neuro manif type II E11.49 [place] [address] [address] Jan, [place] [address] [address] Jan, Prediabetes R73.03 [place] [address] [address] Dec, [place] [address] [address] Dec, Essential hypertension I10 ; Mixed hyperlipidemia E78.2 ; Acquired hypothyroidism E03.9 ; Reactive depression F32.9 and Prediabetes R73.03 [place] [address] [address] Dec, [place] [address] [address] Dec, [place] [address] [address] Dec, DM neuro manif type II E11.49 [facility] [address], [place] [address] Dec, Bruise T14.8XXA ; Type 2 diabetes mellitus with hyperglycemia E11.65 and meterman current use of insulin Z79.4 [facility] [address], [place] [address] Oct, [facility] [id number] [place] [address] March, Onychomycosis B35.1 and DM neuro manif type II E11.49 [facility] [id number] [place] [address] Jun, [facility] [id number] [place] [address] Jun, [facility] [id number] [place] [address] Jun, COPD with acute exacerbation 491.21 [facility] [id number] [place] [address] Apr, [facility] [id number] [place] [address] Feb, [facility] [address], [place] [address] Feb, [facility] [id number] [place] [address] Jan, [facility] [address], [place] [address] Jan, [facility] [id number] [place] [address] Jan, [facility] [address], [place] [address] Jan, [facility] [id number] [place] [address] 24 Jan, 2014 [facility] [place] [facility] [address] [id number] [place] [address] 23 Jan, 2014 [facility] [place] [facility] [address] [id number] [place] [address] 23 Jan, 2014 [facility] [place] [facility] [address] [id number] [place] [address] 23 Jan, 2014 [facility] [place] [facility] [address] [id number] [place] [address] 23 Jan, 2014 [facility] [place] [facility] [address] [id number] [place] [address] 19 Jan, 2014 [facility] [place] [facility] [address] [id number] [place] [address] 19 Jan, 2014 [facility] [place] [facility] [address] [id number] [place] [address] 18 Jan, 2015 [facility] [place] [facility] [address] [id number] [place] [address] 18 Jan, 2014 [facility] [place] [facility] [address] [id number] [place] [address] 16 Jan, 2014 [facility] [place] [facility] [address] [id number] [place] [address] 16 Jan, 2014 [facility] [place] [facility] [address] [id number] [place] [address] 16 Jan, 2014 [facility] [place] [facility] [address] [id number] [place] [address] 16 Jan, 2014 [facility] [place] [facility] [address] [id number] [place] [address] 15 Jan, 2014 [facility] [place] [facility] [address] [id number] [place] [address] 13 Jan, 2014 [facility] [place] [facility] [address] [id number] [place] [address] 13 Jan, 2014 [facility] [place] [facility] [address] [id number] [place] [address] 13 Jan, 2014 [facility] [place] [facility] [address] [id number] [place] [address] 13 Jan, 2015 [facility] [place] [facility] [address] [id number] [place] [address] 12 Jan, 2015 [facility] [place] [facility] [address] [id number] [place] [address] Jan, [facility] [place] [facility] [address] [id number] [place] [address] Jan, [facility] [place] [facility] [address] [id number] [place] [address] 24 Dec, 2014 [facility] [place] [facility] [address] [facility] [id number] [place] [address] 24 Dec, 2014 [facility] [place] [facility] [address] [facility] [id number] [place] [address] Dec, 2014 [facility] [place] [facility] [address] [facility] [id number] [place] [address] Dec, [facility] [place] [facility] [address] [facility] [id number] [place] [address] Dec, 2014 [facility] [place] [facility] [address] [facility] [id number] [place] [address] Dec, 2014 [facility] [place] [facility] [address] [facility] [id number], [place] [address] Dec, 2014 [facility] [place] [facility] [address] [facility] [id number] [place] [address] Dec, 2014 [facility] [place] [facility] [address] [facility] [id number] [place] [address] Dec, 2014 [facility] [place] [facility] [address] [facility] [id number] [place] [address] Dec, 2014 [facility] [place] [facility] [address] [facility] [id number], [place] [address] Dec, [facility] [address] [id number] [place] [address] Dec, [facility] [place] [facility] [address] [id number] [place] [address] Nov, [facility] [place] [facility] [address] [id number] [place] [address] Nov, [facility] [place] [facility] [address] [id number] [place] [address] Nov, [facility] [place] [facility] [address] [id number] [place] [address] Nov, [facility] [place] [facility] [address] [id number] [place] [address] Nov, [facility] [address] [id number] [place] [address] Nov, [facility] [place] [facility] [address] [id number] [place] [address] Nov, [facility] [place] [facility] [address] [id number] [place] [address] Nov, [facility] [place] [facility] [address] [facility] [id number] [place] [address] Nov, [facility] [place] [facility] [address] [id number] [place] [address] Nov, [facility] [place] [facility] [address] [id number], [place] [address] Nov, [facility] [place] [facility] [address] [id number] [place] [address] Nov, [facility] [place] [facility] [address] [id number] [place] [address] Oct, [facility] [place] [facility] [address] [id number], [place] [address] Oct, [facility] [place] [facility] [address] [id number] [place] [address] 30 Oct, 2014 [facility] [place] [facility] [address] [id number] [place] [address] 30 Oct, 2014 [facility] [place] [facility] [address] [id number] [place] [address] Oct, [facility] [place] [facility] [address] [id number] [place] [address] Oct, [facility] [place] [facility] [address] [id number] [place] [address] Oct, [facility] [place] [facility] [address] [id number] [place] [address] Oct, [facility] [place] [facility] [address] [id number] [place] [address] 17 Oct, 2014 [facility] [place] [facility] [address] [id number] [place] [address] 17 Oct, 2014 [facility] [place] [facility] [address] [id number] [place] [address] 16 Oct, 2014 [facility] [place] [facility] [address] [id number] [place] [address] 16 Oct, 2014 [facility] [place] [facility] [address] [id number] [place] [address] 15 Oct, 2014 [facility] [place] [facility] [address] [id number] [place] [address] 15 Oct, 2014 [facility] [place] [facility] [address] [id number] [place] [address] 08 Oct, 2014 [facility] [place] [facility] [address] [id number] [place] [address] Sep, [facility] [place] [facility] [address] [id number] [place] [address] Sep, [facility] [place] [facility] [address] [id number] [place] [address] Sep, [facility] [place] [facility] [address] [id number] [place] [address] Sep, [facility] [place] [facility] [address] [id number] [place] [address] Aug, [facility] [place] [facility] [address] [id number] [place] [address] Aug, [facility] [place] [facility] [address] [id number] [place] [address] Aug, [facility] [place] [facility] [address] [id number] [place] [address] Aug, [facility] [place] [facility] [address] [id number] [place] [address] Aug, [facility] [place] [facility] [address] [id number] [place] [address] Aug, [facility] [place] [facility] [address] [id number] [place] [address] 29 Jul, 2014 [facility] [place] [facility] [address] [id number] [place] [address] 29 Jul, 2014 [facility] [place] [facility] [address] [id number] [place] [address] 15 Jul, 2014 [facility] [place] [facility] [address] [id number], [place] [address] 15 Jul, 2014 [facility] [place] [facility] [address] [id number], [place] [address] 08 Jul, 2014 [facility] [place] [facility] [address] [id number] [place] [address] 08 Jul, 2014 [facility] [place] [facility] [address] [id number] [place] [address] Jun, [facility] [place] [facility] [address] [id number] [place] [address] Jun, [facility] [place] [facility] [address] [id number] [place] [address] Jun, [facility] [place] [facility] [address] [id number] [place] [address] Jun, [facility] [place] [facility] [address] [id number] [place] [address] Jun, [facility] [place] [facility] [address] [id number] [place] [address] Jun, [facility] [place] [facility] [address] [id number] [place] [address] Jun, [facility] [place] [facility] [address] [id number] [place] [address] May, [facility] [place] [facility] [address] [id number] [place] [address] May, [facility] [place] [facility] [address] [id number] [place] [address] May, [facility] [place] [facility] [address] [id number] [place] [address] May, [facility] [place] [facility] [address] [id number] [place] [address] May, [facility] [place] [facility] [address] [id number] [place] [address] May, [facility] [place] [facility] [address] [id number] [place] [address] May, [facility] [place] [facility] [address] [id number] [place] [address] May, [facility] [place] [facility] [address] [id number] [place] [address] May, [facility] [place] [facility] [address] [id number] [place] [address] May, [facility] [place] [facility] [address] [id number] [place] [address] May, [facility] [place] [facility] [address] [id number] [place] [address] May, [facility] [place] [facility] [address] [id number] [place] [address] Apr, [facility] [place] [facility] [address] [id number] [place] [address] Apr, [facility] [place] [facility] [address] [id number] [place] [address] Apr, [facility] [place] [facility] [address] [id number] [place] [address] Apr, [facility] [place] [facility] [address] [id number] [place] [address] Apr, [facility] [place] [facility] [address] [id number] [place] [address] Apr, [facility] [place] [facility] [address] [id number] [place] [address] Apr, [facility] [place] [facility] [address] [id number] [place] [address] Apr, [facility] [place] [facility] [address] [id number] [place] [address] Apr, [facility] [place] [facility] [address] [id number] [place] [address] Apr, [facility] [place] [facility] [address] [id number] [place] [address] March, [facility] [place] [facility] [address] [id number] [place] [address] March, [facility] [place] [facility] [address] [id number] [place] [address] March, [facility] [place] [facility] [address] [id number] [place] [address] March, [facility] [place] [facility] [address] [id number] [place] [address] March, [facility] [place] [facility] [address] [id number] [place] [address] March, [facility] [place] [facility] [address] [id number] [place] [address] Feb, [facility] [place] [facility] [address] [id number] [place] [address] Feb, [facility] [place] [facility] [address] [id number] [place] [address] Feb, [facility] [place] [facility] [address] [id number] [place] [address] Feb, [facility] [place] [facility] [address] [id number] [place] [address] Feb, [facility] [place] [facility] [address] [id number] [place] [address] Feb, [facility] [place] [facility] [address] [id number] [place] [address] Feb, [facility] [place] [facility] [address] [id number] [place] [address] Feb, [facility] [place] [facility] [address] [id number] [place] [address] Feb, [facility] [place] [facility] [address] [id number] [place] [address] Feb, [facility] [place] [facility] [address] [id number] [place] [address] Jan, [facility] [place] [facility] [address] [id number] [place] [address] Jan, [facility] [place] [facility] [address] [id number] [place] [address] Jan, [facility] [place] [facility] [address] [id number] [place] [address] Jan, [facility] [place] [facility] [address] [id number] [place] [address] Jan, [facility] [place] [facility] [address] [id number] [place] [address] Jan, [facility] [place] [facility] [address] [id number] [place] [address] Jan, [facility] [place] [facility] [address] [id number] [place] [address] Jan, [facility] [place] [facility] [address] [id number] [place] [address] Dec, [facility] [place] [facility] [address] [id number] [place] [address] Dec, [facility] [place] [facility] [address] [id number] [place] [address] Dec, [facility] [place] [facility] [address] [id number] [place] [address] Dec, [facility] [place] [facility] [address] [id number] [place] [address] Dec, [facility] [place] [facility] [address] [id number] [place] [address] Dec, [facility] [place] [facility] [address] [id number] [place] [address] Dec, [facility] [place] [facility] [address] [id number] [place] [address] Dec, [facility] [place] [facility] [address] [id number] [place] [address] Nov, [facility] [place] [facility] [address] [id number] [place] [address] Nov, [facility] [place] [facility] [address] [id number] [place] [address] Nov, [facility] [place] [facility] [address] [id number], [place] [address] Nov, [facility] [place] [facility] [address] [id number] [place] [address] Nov, [facility] [place] [facility] [address] [id number] [place] [address] Nov, [facility] [place] [facility] [address] [id number] [place] [address] Nov, [facility] [place] [facility] [address] [id number] [place] [address] Nov, [facility] [place] [facility] [address] [id number] [place] [address] Nov, [facility] [place] [facility] [address] [id number] [place] [address] Nov, [facility] [place] [facility] [address] [id number] [place] [address] Nov, [facility] [place] [facility] [address] [id number] [place] [address] Oct, [facility] [place] [facility] [address] [id number] [place] [address] Oct, [facility] [place] [facility] [address] [id number] [place] [address] Oct, [facility] [place] [facility] [address] [id number][place] [address] Oct, [facility] [place] [facility] [address] [id number], [place] [address] Sep, [facility] [place] [facility] [address] [id number] [place] [address] Sep, [facility] [place] [facility] [address] [id number] [place] [address] Sep, [facility] [place] [facility] [address] [id number] [place] [address] Sep, [facility] [place] [facility] [address] [id number] [place] [address] Aug, 2012 [facility] [place] [facility] [address] [id number] [place] [address] Aug, [facility] [place] [facility] [address] [id number] [place] [address] Aug, [facility] [place] [facility] [address] [id number] [place] [address] Aug, 2012 [facility] [place] [facility] [address] [id number] [place] [address] Aug, 2012 [facility] [place] [facility] [address] [id number] [place] [address] Aug, [facility] [place] [facility] [address] [id number] [place] [address] Aug, [facility] [place] [facility] [address] [id number] [place] [address] Aug, [facility] [place] [facility] [address] [id number] [place] [address] 28 Jul, 2012 [facility] [place] [facility] [address] [id number] [place] [address] 27 Sep, 2012 [facility] [place] [facility] [address] [id number] [place] [address] 26 Sep, 2012 [facility] [place] [facility] [address] [id number] [place] [address] 24 Sep, 2012 [facility] [place] [facility] [address] [id number] [place] [address] 24 Sep, 2012 [facility] [place] [facility] [address] [id number] [place] [address] 23 Sep, 2012 [facility] [place] [facility] [address] [id number] [place] [address] 19 Sep, 2012 [facility] [place] [facility] [address] [id number] [place] [address] 18 Sep, 2012 [facility] [place] [facility] [address] [id number] [place] [address] 17 Jul, 2012 [facility] [place] [facility] [address] [id number] [place] [address] 16 Jul, 2012 [facility] [place] [facility] [address] [id number] [place] [address] 13 Jul, 2012 [facility] [place] [facility] [address] [id number] [place] [address] 13 Jul, 2012 [facility] [place] [facility] [address] [id number] [place] [address] 12 Jul, 2012 [facility] [place] [facility] [address] [id number] [place] [address] 11 Jul, 2013 [facility] [place] [facility] [address] [id number] [place] [address] 04 Jul, 2013 [facility] [place] [facility] [address] [id number] [place] [address] 30 Jun, 2013 [facility] [place] [facility] [address] [id number] [place] [address] Jun, [facility] [place] [facility] [address] [id number] [place] [address] Jun, [facility] [place] [facility] [address] [id number] [place] [address] May, [facility] [place] [facility] [address] [id number], [place] [address] May, [facility] [place] [facility] [address] [id number] [place] [address] May, [facility] [place] [facility] [address] [id number] [place] [address] May, [facility] [place] [facility] [address] [id number] [place] [address] Apr, [facility] [place] [facility] [address] [id number] [place] [address] 10 Apr, 2013 [facility] [address] [id number] [place] [address] Apr, [facility] [address] [id number] [place] [address] Apr, [facility] [address] [id number] [place] [address] March, [facility] [place] [facility] [address] [id number] [place] [address] March, [facility] [address] [id number] [place] [address] March, [facility] [address] [id number] [place] [address] Feb, [facility] [address] [id number] [place] [address] Feb, [facility] [address] [id number] [place] [address] Jan, [facility] [address] [id number] [place] [address] Jan, [facility] [address] [facility] [id number] [place] [address] Jan, [facility] [address] [id number] [place] [address] Jan, [facility] [place] [facility] [address] [id number] [place] [address] Jan, [facility] [place] [facility] [address] [id number] [place] [address] Dec, [facility] [place] [facility] [address] [id number] [place] [address] Dec, [facility] [place] [facility] [address] [id number] [place] [address] Dec, [facility] [place] [facility] [address] [id number] [place] [address] Dec, [facility] [place] [facility] [address] [id number] [place] [address] Dec, [facility] [address] [id number] [place] [address] Dec, [facility] [place] [facility] [address] [id number] [place] [address] Dec, [facility] [address] [id number] [place] [address] Dec, [facility] [address] [id number] [place] [address] Nov, [facility] [address] [id number] [place] [address] Nov, [facility] [address] [id number] [place] [address] Nov, [facility] [address] [id number] [place] [address] Nov, [facility] [address] [id number] [place] [address] Nov, [facility] [place] [facility] [address] [id number] [place] [address] Nov, [facility] [place] [facility] [address] [id number], [place] [address] Nov, [facility] [place] [facility] [address] [id number] [place] [address] Oct, [facility] [place] [facility] [address] [id number] [place] [address] Oct, [facility] [place] [facility] [address] [id number] [place] [address] Oct, [facility] [place] [facility] [address] [id number] [place] [address] 12 Oct, 2012 [facility] [place] [facility] [address] [id number] [place] [address] Oct, [facility] [place] [facility] [address] [id number] [place] [address] 05 Oct, 2012 [facility] [place] [facility] [address] [id number] [place] [address] Oct, [facility] [place] [facility] [address] [id number] [place] [address] Oct, [facility] [place] [facility] [address] [id number] [place] [address] Sep, [facility] [place] [facility] [address] [id number] [place] [address] Sep, [facility] [place] [facility] [address] [id number] [place] [address] Sep, [facility] [place] [facility] [address] [id number] [place] [address] Sep, [facility] [place] [facility] [address] [id number] [place] [address] Sep, [facility] [place] [facility] [address] [facility] [id number] [place] [address] Sep, [facility] [place] [facility] [address] [id number] [place] [address] Sep, [facility] [place] [facility] [address] [id number], [place] [address] Sep, [facility] [place] [facility] [address] [id number] [place] [address] Sep, [facility] [place] [facility] [address] [id number] [place] [address] Sep, [facility] [place] [facility] [address] [facility] [id number], [place] [address] Sep, [facility] [place] [facility] [address] [id number] [place] [address] Sep, [facility] [place] [facility] [address] [id number] [place] [address] Sep, [facility] [place] [facility] [address] [id number] [place] [address] Sep, [facility] [place] [facility] [address] [id number] [place] [address] Sep, [facility] [place] [facility] [address] [id number] [place] [address] Sep, [facility] [place] [facility] [address] [id number] [place] [address] Sep, [facility] [place] [facility] [address] [id number] [place] [address] Sep, [facility] [place] [facility] [address] [id number] [place] [address] Sep, [facility] [place] [facility] [address] [id number] [place] [address] Sep, [facility] [place] [facility] [address] [id number] [place] [address] Aug, [facility] [place] [facility] [address] [id number] [place] [address] Aug, [facility] [place] [facility] [address] [id number] [place] [address] 29 Aug, 2012 [facility] [place] [facility] [address] [id number] [place] [address] Aug, [facility] [place] [facility] [address] [id number] [place] [address] Aug, [facility] [place] [facility] [address] [id number] [place] [address] 18 Aug, 2012 [facility] [place] [facility] [address] [id number] [place] [address] 18 Aug, 2012 [facility] [place] [facility] [address] [id number] [place] [address] 17 Aug, 2012 [facility] [place] [facility] [address] [id number] [place] [address] 16 Aug, 2012 [facility] [place] [facility] [address] [id number] [place] [address] 16 Aug, 2012 [facility] [place] [facility] [address] [id number] [place] [address] 15 Aug, 2012 [facility] [place] [facility] [address] [id number] [place] [address] Aug, [facility] [place] [facility] [address] [id number] [place] [address] Aug, [facility] [place] [facility] [address] [id number] [place] [address] Aug, [facility] [place] [facility] [address] [id number] [place] [address] Aug, [facility] [place] [facility] [address] [id number] [place] [address] 14 Jul, 2012 [facility] [place] [facility] [address] [id number] [place] [address] Jul, [facility] [place] [facility] [address] [id number] [place] [address] Jun, [facility] [place] [facility] [address] [id number], [place] [address] Jun, [facility] [place] [facility] [address] [id number] [place] [address] May, [facility] [place] [facility] [address] [id number] [place] [address] May, [facility] [place] [facility] [address] [id number] [place] [address] May, [facility] [place] [facility] [address] [id number] [place] [address] May, [facility] [address] [id number] [place] [address] May, [facility] [address] [id number] [place] [address] May, [facility] [address] [id number] [place] [address] Apr, [facility] [address] [id number] [place] [address] Apr, [facility] [address] [id number] [place] [address] March, [facility] [address] [id number] [place] [address] March, [facility] [address] [id number] [place] [address] March, [facility] [address] [id number] [place] [address] March, [facility] [address] [id number] [place] [address] March, [facility] [address] [id number] [place] [address] March, [facility] [address] [id number] [place] [address] 30 Feb, 2012 [facility] [address] [id number] [place] [address] Feb, [facility] [address] [id number] [place] [address] Feb, [facility] [address] [id number] [place] [address] Feb, [facility] [address] [id number] [place] [address] Feb, [facility] [address] [id number] [place] [address] 19 Feb, 2012 [facility] [place] [facility] [address] [id number] [place] [address] 10 Feb, 2012 [facility] [place] [facility] [address] [id number] [place] [address] Feb, [facility] [place] [facility] [address] [id number] [place] [address] 04 Feb, 2012 [facility] [address] [id number] [place] [address] 30 Jan, 2012 [facility] [place] [facility] [address] [id number] [place] [address] 27 Jan, 2012 [facility] [place] [facility] [address] [id number] [place] [address] 26 Jan, 2012 [facility] [place] [facility] [address] [id number] [place] [address] 22 Jan, 2012 [facility] [place] [facility] [address] [id number] [place] [address] Jan, [facility] [place] [facility] [address] [id number] [place] [address] 20 Jan, 2012 [facility] [place] [facility] [address] [id number] [place] [address] 14 Jan, 2012 [facility] [place] [facility] [address] [id number] [place] [address] Jan, [facility] [place] [facility] [address] [id number] [place] [address] Jan, [facility] [place] [facility] [address] [id number] [place] [address] 08 Jan, 2012 [facility] [place] [facility] [address] [id number] [place] [address] 07 Jan, 2012 [facility] [place] [facility] [address] [id number] [place] [address] 06 Jan, 2012 [facility] [address] [id number] [place] [address] Jan, [facility] [place] [facility] [address] [id number] [place] [address] Jan, [facility] [place] [facility] [address] [id number] [place] [address] 28 Dec, 2011 [facility] [place] [facility] [address] [id number] [place] [address] 27 Dec, 2011 [facility] [place] [facility] [address] [id number] [place] [address] 25 Dec, 2011 [facility] [place] [facility] [address] [id number] [place] [address] 23 Dec, 2011 [facility] [place] [facility] [address] [id number] [place] [address] 16 Dec, 2011 [facility] [place] [facility] [address] [id number] [place] [address] 08 Dec, 2011 [facility] [place] [facility] [address] [id number] [place] [address] 08 Dec, 2011 [facility] [place] [facility] [address] [facility] [id number] [place] [address] 07 Dec, 2011 [facility] [place] [facility] [address] [id number] [place] [address] 07 Dec, 2011 [facility] [place] [facility] [address] [id number] [place] [address] Nov, [facility] [place] [facility] [address] [id number] [place] [address] Nov, [facility] [place] [facility] [address] [id number] [place] [address] Nov, [facility] [place] [facility] [address] [facility] [id number] [place] [address] Nov, [facility] [place] [facility] [address] [id number] [place] [address] Oct, [facility] [place] [facility] [address] [id number] [place] [address] Oct, [facility] [place] [facility] [address] [id number] [place] [address] Oct, [facility] [place] [facility] [address] [id number] [place] [address] Oct, [facility] [place] [facility] [address] [id number] [place] [address] Oct, [facility] [place] [facility] [address] [id number] [place] [address] Oct, [facility] [place] [facility] [address] [id number] [place] [address] Oct, [facility] [place] [facility] [address] [id number] [place] [address] Sep, [facility] [place] [facility] [address] [id number] [place] [address] Sep, [facility] [place] [facility] [address] [id number], [place] [address] Sep, [facility] [place] [facility] [address] [id number], [place] [address] Sep, [facility] [place] [facility] [address] [id number], [place] [address] Sep, [facility] [place] [facility] [address] [id number], [place] [address] Sep, [facility] [place] [facility] [address] [id number], [place] [address] Sep, [facility] [place] [facility] [address] [id number], [place] [address] Sep, [facility] [place] [facility] [address] [id number], [place] [address] Sep, [facility] [address] [id number] [place] [address] 30 Aug, 2011 [facility] [place] [facility] [address] [id number] [place] [address] 28 Aug, 2011 [facility] [address] [id number] [place] [address] 27 Aug, 2011 [facility] [place] [facility] [address] [id number] [place] [address] May, [facility] [address] [id number] [place] [address] Nov, [facility] [place] [facility] [address] [id number] [place] [address] 31 Oct, 2010 [facility] [address] [facility] [id number] [place] [address] 30 Oct, 2010 [facility] [place] [facility] [address] [id number] [place] [address] 30 Oct, 2010 [facility] [place] [facility] [address] [facility] [id number] [place] [address] Oct, [facility] [place] [facility] [address] [facility] [id number] [place] [address] Oct, [facility] [place] [facility] [address] [facility] [id number] [place] [address] Sep, [facility] [place] [facility] [address] [id number] [place] [address] Sep, [facility] [place] [facility] [address] [id number] [place] [address] 14 Jul, 2010 [facility] [place] [facility] [address] [id number] [place] [address] 31 Oct, 2009 [facility] [place] [facility] [address] [facility] [id number] [place] [address] 09 Oct, 2009 [facility] [place] [facility] [address] [id number], [place] [address] 04 Oct, 2009 [facility] [address] [id number], [place] [address] Oct, [facility] [id number], [place] [address] Sep, [facility] [id number], [place] [address] Sep, [facility] [id number], [place] [address] Sep, [facility] [id number], [place] [address] Sep, [facility] [id number], [place] [address] Sep, [facility] [id number], [place] [address] Jul, [facility] [address] [id number], [place] [address] Apr, [facility] [address] [id number], [place] [address] Dec, IMMUNIZATIONS No Known Immunizations SOCIAL HISTORY [...]
--- OUTSIDE RECORDS SUMMARY | 2019-06-14 11:07 | XMS REPORT ---
Author Author ETELVINA LEONARD Organization [facility] Address [address] [place] [address] Care Team Providers Care Bellows Assembler Name Role Phone ETELVINA LEONARD Unavailable PROBLEMS Type Condition ICD9-CM Code SQX17-SF Code Onset Dates Condition Status SNOMED Code Problem Acquired hypothyroidism E03.9 Active 529701699 Problem Prediabetes R73.03 Active 774015472 Problem Essential hypertension I10 Active 78352201 Problem Mixed hyperlipidemia E78.2 Active 837325639 Problem Gastroesophageal reflux disease, esophagitis presence not specified K21.9 Active 855280606 Problem Reactive depression F32.9 Active 17790474 Problem Lumbago with sciatica, right side M54.41 Active [id number] Problem Lumbago with sciatica, left side M54.42 Active 175171228 Problem Cigarette nicotine dependence without complication F17.210 Active 43809499 Problem DM neuro manif type II E11.49 Active 52585852 Problem Seizures R56.9 Active 50369089 Problem Adjustment disorder with disturbance of emotion F43.29 Active 03972365 Problem Chronic obstructive pulmonary disease, unspecified COPD type J44.9 Active 88785701 Problem Major depressive disorder, recurrent, moderate F33.1 Active 122487991 Problem Other chronic pain G89.29 Active 97344278 Problem Iron deficiency anemia due to chronic blood loss D50.0 Active 048555818 Problem Seasonal allergies J30.2 Active 541948665 Problem Sinusitis J32.9 Active 34751963 Problem Chronic pain G89.29 Active 56181457 ALLERGIES No Information ENCOUNTERS Encounter Location Date Diagnosis [facility] [address] [address] May, [facility] [address] [address] May, [facility] [address] [place] [id number] [place] [address] May, [place] [address] [address] Apr, [place] [address] [place] [id number] [place] [address] 18 Apr, 2019 Type 2 diabetes mellitus with hyperglycemia E11.65 [place] [address] [address] 17 Apr, 2019 Type 2 diabetes mellitus with hyperglycemia E11.65 [place] [address] [address] 14 Apr, 2019 Major depressive disorder, recurrent, moderate F33.1 and Adjustment disorder with disturbance of emotion F43.29 [place] [address] [address] Apr, [place] [address] [address] Apr, Diarrhea, unspecified type R19.7 [place] [address] [place] [id number] [place] [address] Apr, Low back pain M54.5 ; Other chronic pain G89.29 and Anemia, unspecified type D64.9 [place] [address] [place] [id number] [place] [address] Apr, [place] [address] [address] Apr, Diarrhea, unspecified type R19.7 and Lumbar radiculopathy, chronic M54.16 [facility] [place] [address] [address] March, Non-intractable vomiting with nausea, unspecified vomiting type R11.2 and Muscle cramps R25.2 [place] [address] [place] [id number] [place] [address] March, [place] [address] [address] 17 Mar, 2019 Other chronic pain G89.29 [facility] [id number] [place] [address] March, Type 2 diabetes mellitus with hyperglycemia E11.65 ; Flank pain R10.9 ; Acute cystitis without hematuria N30.00 ; Chronic obstructive pulmonary disease, unspecified COPD type J44.9 and Moderate episode of recurrent major depressive disorder F33.1 [facility] [id number] [place] [address] March, [facility] [id number] [place] [address] March, Wheezing R06.2 and Viral upper respiratory tract infection J06.9 [place] [address] [place] [id number] [place] [address] Feb, [facility] [id number] [place] [address] Feb, [facility] [id number] [place] [address] Jan, [facility] [id number] [place] [address] Jan, Acute cystitis with hematuria N30.01 and Dysuria R30.0 [facility] [id number] [place] [address] Jan, [facility] [address] [place] [id number] [place] [address] Dec, [facility] [id number] [place] [address] Dec, [facility] [id number] [place] [address] Dec, [facility] [id number] [place] [address] Dec, [facility] [address] [place] [id number] [address] Dec, Routine adult health maintenance Z00.00 ; Chronic obstructive pulmonary disease, unspecified COPD type J44.9 and Encounter for immunization Z23 [facility] [address] [address] Nov, [facility] [id number] [place] [address] Nov, UTI (urinary tract infection) N39.0 and Other chronic pain G89.29 [facility] [address] [place] [id number] [place] [address] Nov, [facility] [address] [place] [address] Nov, [facility] [address] [place] [address] Nov, Painful urination R30.9 and UTI (urinary tract infection) N39.0 [facility] [address] [address] Nov, [facility] [address], [place] [address] Nov, UTI (urinary tract infection) N39.0 [facility] [address], [place] [address] Nov, Dysuria R30.0 ; UTI (urinary tract infection) N39.0 and Chronic pain G89.29 [facility] [address] [id number] [address] Nov, [facility] [address] [place] [address] Oct, Cough R05 [facility] [address] [address] 14 Oct, 2018 Sinusitis J32.9 [place] [address] [place] [id number] [place] [address] Oct, [place] [address] [address] Oct, UTI (urinary tract infection) N39.0 and URI (upper respiratory infection) J06.9 [place] [address] [place] [id number] [place] [address] Sep, Pain in thoracic spine M54.6 [place] [address] [place] [id number] [place] [address] Sep, Type 2 diabetes mellitus with hyperglycemia E11.65 [place] [address] [place] [id number] [place] [address] Sep, Chronic obstructive pulmonary disease, unspecified COPD type J44.9 ; Abrasion of right ear canal, initial encounter S00.411A ; Cigarette nicotine dependence without complication F17.210 ; Right leg pain M79.604 and Seasonal allergies J30.2 [place] [address] [place] [id number] [place] [address] Aug, [place] [address] [place] [id number] [place] [address] Aug, [place] [address] [place] [id number] [place] [address] Aug, Pain in thoracic spine M54.6 [place] [address] [place] [id number] [place] [address] Aug, [place] [address] [place] [id number] [place] [address] Aug, Chronic obstructive pulmonary disease, unspecified COPD type J44.9 ; Complete amputation of right foot, 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 ; Cigarette nicotine dependence without complication F17.210 and BMI 40.0-44.9, adult Z68.41 [place] [address] [place] [id number] [place] [address] Jul, [place] [address] [place] [id number] [place] [address] Jul, [place] [address] [address] Jul, Onychomycosis B35.1 ; Onychocryptosis L60.0 and DM neuro manif type II E11.49 [place] [address] [address] Jun, Pain in thoracic spine M54.6 [place] [address] [address] Jun, Iron deficiency anemia due to chronic blood loss D50.0 and Hematochezia K92.1 [place] [address] [address] Jun, Gastroenteritis K52.9 and Abnormal RBC indices R71.8 [place] [address] [address] Jun, [place] [address] [address] Jun, Chest congestion R09.89 and Seizures R56.9 [place] [address] [address] May, Pain in thoracic spine M54.6 [place] [address] [place] [id number] [place] [address] May, [place] [address] [place] [id number] [place] [address] May, [place] [address] [address] May, [place] [address] [address] May, Acute non-recurrent frontal sinusitis J01.10 and Dermatitis L30.9 [place] [address], [place] [address] May, [facility] [address] [place] [id number] [place] [address] May, Pain in thoracic spine M54.6 [facility] [address] [place] [address] May, [facility] [id number] [place] [address] May, Acute nasopharyngitis J00 [facility] [address] [place] [id number] [place] [address] May, [facility] [id number] [place] [address] May, [facility] [address] [place] [id number] [place] [address] Apr, [facility] [address] [place] [id number] [place] [address] Apr, [facility] [id number] [place] [address] Apr, [facility] [address] [address] Apr, [facility] [address] [place] [address] Apr, Pain in right ankle and joints of right foot M25.571 [facility] [address], [place] [address] Apr, [facility] [address] [place] [id number] [place] [address] Apr, Bronchitis J40 ; Pain in right ankle and joints of right foot M25.571 ; Other chronic pain G89.29 ; Prediabetes R73.03 ; Chronic obstructive pulmonary disease, unspecified COPD type J44.9 and Cigarette nicotine dependence without complication F17.210 [facility] [id number] [place] [address] 13 Apr, 2018 Seasonal allergic rhinitis, unspecified trigger J30.2 [place] [address] [place] [id number] [place] [address] 08 Apr, 2018 Onychomycosis B35.1 ; Onychocryptosis L60.0 and DM neuro manif type II E11.[address] [address] Apr, Reactive depression F32.9 ; Thoracic myofascial strain, initial encounter S29.019A and Leg cramps R25.[address] [address] March, [place] [address] [address] March, Type 2 diabetes mellitus with hyperglycemia E11.65 [place] [address] [address] March, Reactive depression F32.[address] [address] March, Pain in thoracic spine M54.6 and Other chronic pain G89.29 [place] [address] [address] Feb, [place] [address] [address] Jan, Reactive depression F32.9 ; Essential hypertension I10 ; Gastroesophageal reflux disease, esophagitis presence not specified K21.9 ; Lumbago with sciatica, left side M54.42 and Lumbago with sciatica, right side M54.41 [place] [address] [place] [id number] [place] [address] Jan, Reactive depression F32.9 and Pharyngoesophageal dysphagia R13.14 [place] [id number] [address] Jan, [place] [address] [address] Jan, Encounter for immunization Z23 [place] [address] [address] Jan, Onychomycosis B35.1 and DM neuro manif type II E11.49 [place] [address] [address] Jan, [place] [address] [address] Jan, Prediabetes R73.03 [place] [address] [address] Dec, [place] [address] [address] Dec, Essential hypertension I10 ; Mixed hyperlipidemia E78.2 ; Acquired hypothyroidism E03.9 ; Reactive depression F32.9 and Prediabetes R73.03 [place] [address] [address] Dec, [place] [address] [address] Dec, [place] [address] [address] Dec, DM neuro manif type II E11.49 [facility] [address] [address] Dec, Bruise T14.8XXA ; Type 2 diabetes mellitus with hyperglycemia E11.65 and diamond cleaver current use of insulin Z79.4 [place] [address] [place] [id number] [place] [address] Oct, [place] [address] [address] March, Onychomycosis B35.1 and DM neuro manif type II E11.49 [facility] [address] [id number] [place] [address] Jun, [facility] [address] [address] Jun, [facility] [id number] [place] [address] Jun, COPD with acute exacerbation 491.21 [facility] [address] [id number] [place] [address] Apr, [facility] [id number] [place] [address] Feb, [facility] [id number] [place] [address] Feb, [facility] [id number] [address] Jan, [facility] [address] [address] Jan, [facility] [id number] [address] Jan, [facility] [address] [address] Jan, [facility] [address] [address] Jan, [facility] [address] [address] Jan, [facility] [address] [address] Jan, [facility] [address] [address] Jan, [facility] [id number] [place] [address] 23 Jan, 2014 [facility] [place] [facility] [address] [id number] [place] [address] 19 Jan, 2014 [facility] [place] [facility] [address] [id number] [place] [address] 19 Jan, 2014 [facility] [place] [facility] [address] [id number] [place] [address] 18 Jan, 2014 [facility] [place] [facility] [address] [id number] [place] [address] 18 Jan, 2014 [facility] [place] [facility] [address] [id number] [place] [address] 16 Jan, 2014 [facility] [place] [facility] [address] [id number] [place] [address] 16 Jan, 2014 [facility] [place] [facility] [address] [id number] [place] [address] 16 Jan, 2014 [facility] [place] [facility] [address] [id number] [place] [address] 16 Jan, 2014 [facility] [place] [facility] [address] [id number] [place] [address] 15 Jan, 2014 [facility] [place] [facility] [address] [id number] [place] [address] 13 Jan, 2014 [facility] [place] [facility] [address] [id number] [place] [address] 13 Jan, 2014 [facility] [place] [facility] [address] [id number] [place] [address] 13 Jan, 2014 [facility] [place] [facility] [address] [id number] [place] [address] 13 Jan, 2014 [facility] [place] [facility] [address] [id number] [place] [address] 12 Jan, 2014 [facility] [place] [facility] [address] [id number] [place] [address] Jan, [facility] [place] [facility] [address] [id number] [place] [address] Jan, [facility] [place] [facility] [address] [id number] [place] [address] Dec, [facility] [place] [facility] [address] [id number] [place] [address] Dec, [facility] [place] [facility] [address] [id number] [place] [address] Dec, [facility] [place] [facility] [address] [id number] [place] [address] Dec, [facility] [place] [facility] [address] [id number] [place] [address] Dec, [facility] [place] [facility] [address] [id number] [place] [address] Dec, [facility] [place] [facility] [address] [id number] [place] [address] Dec, [facility] [place] [facility] [address] [id number] [place] [address] Dec, [facility] [place] [facility] [address] [id number] [place] [address] Dec, [facility] [place] [facility] [address] [id number] [place] [address] Dec, [facility] [place] [facility] [address] [id number] [place] [address] Dec, [facility] [place] [facility] [address] [id number] [place] [address] Dec, [facility] [place] [facility] [address] [id number] [place] [address] Nov, [facility] [place] [facility] [address] [id number] [place] [address] Nov, [facility] [place] [facility] [address] [id number] [place] [address] Nov, [facility] [address] [id number] [place] [address] Nov, [facility] [place] [facility] [address] [id number] [place] [address] Nov, [facility] [address] [id number] [place] [address] Nov, [facility] [address] [id number] [place] [address] Nov, [facility] [address] [id number] [place] [address] Nov, [facility] [address] [id number] [place] [address] Nov, [facility] [address] [id number] [place] [address] Nov, [facility] [address] [id number] [place] [address] Nov, [facility] [address] [id number] [place] [address] Nov, [facility] [address] [id number] [place] [address] Oct, [facility] [address] [id number] [place] [address] Oct, [facility] [address] [id number] [place] [address] Oct, [facility] [place] [facility] [address] [id number] [place] [address] Oct, [facility] [place] [facility] [address] [id number] [place] [address] Oct, [facility] [address] [id number] [place] [address] Oct, [facility] [place] [facility] [address] [id number] [place] [address] Oct, [facility] [place] [facility] [address] [id number] [place] [address] Oct, [facility] [place] [facility] [address] [id number] [place] [address] 17 Oct, 2014 [facility] [place] [facility] [address] [id number] [place] [address] 17 Oct, 2014 [facility] [place] [facility] [address] [id number] [place] [address] 16 Oct, 2014 [facility] [place] [facility] [address] [id number] [place] [address] 16 Oct, 2014 [facility] [place] [facility] [address] [id number] [place] [address] 15 Oct, 2014 [facility] [place] [facility] [address] [id number] [place] [address] 15 Oct, 2014 [facility] [place] [facility] [address] [id number] [place] [address] Oct, [facility] [place] [facility] [address] [id number] [place] [address] Sep, [facility] [place] [facility] [address] [id number] [place] [address] Sep, [facility] [place] [facility] [address] [id number] [address] Sep, [facility] [place] [facility] [address] [id number] [place] [address] Sep, [facility] [place] [facility] [address] [id number] [place] [address] Aug, [facility] [place] [facility] [address] [id number][place] [address] Aug, [facility] [place] [facility] [address] [id number][place] [address] Aug, [facility] [place] [facility] [address] [id number] [place] [address] Aug, [facility] [place] [facility] [address] [id number] [place] [address] Aug, [facility] [place] [facility] [address] [id number] [place] [address] Aug, [facility] [place] [facility] [address] [id number] [place] [address] 29 Jul, 2014 [facility] [place] [facility] [address] [id number] [place] [address] 29 Jul, 2014 [facility] [place] [facility] [address] [id number] [place] [address] 15 Jul, 2014 [facility] [place] [facility] [address] [id number] [place] [address] 15 Jul, 2014 [facility] [place] [facility] [address] [id number] [place] [address] 08 Jul, 2014 [facility] [place] [facility] [address] [id number] [place] [address] 08 Jul, 2014 [facility] [place] [facility] [address] [id number] [place] [address] Jun, [facility] [place] [facility] [address] [id number] [place] [address] Jun, [facility] [place] [facility] [address] [id number], [place] [address] Jun, [facility] [place] [facility] [address] [id number] [place] [address] Jun, [facility] [place] [facility] [address] [id number] [place] [address] Jun, [facility] [place] [facility] [address] [id number] [place] [address] Jun, [facility] [place] [facility] [address] [id number] [place] [address] Jun, [facility] [place] [facility] [address] [id number] [place] [address] May, [facility] [place] [facility] [address] [id number] [place] [address] May, [facility] [place] [facility] [address] [id number] [place] [address] May, [facility] [place] [facility] [address] [id number] [place] [address] May, [facility] [place] [facility] [address] [id number] [place] [address] May, [facility] [place] [facility] [address] [id number] [place] [address] May, [facility] [place] [facility] [address] [id number] [place] [address] May, [facility] [place] [facility] [address] [id number] [place] [address] May, [facility] [place] [facility] [address] [id number] [place] [address] May, [facility] [place] [facility] [address] [id number] [place] [address] May, [facility] [place] [facility] [address] [id number] [place] [address] May, [facility] [place] [facility] [address] [id number] [place] [address] May, [facility] [place] [facility] [address] [id number] [place] [address] Apr, [facility] [place] [facility] [address] [id number] [place] [address] Apr, [facility] [place] [facility] [address] [id number] [place] [address] Apr, [facility] [place] [facility] [address] [id number] [place] [address] Apr, [facility] [place] [facility] [address] [id number] [place] [address] Apr, [facility] [place] [facility] [address] [id number] [place] [address] Apr, [facility] [place] [facility] [address] [id number] [place] [address] Apr, [facility] [place] [facility] [address] [id number] [place] [address] Apr, [facility] [place] [facility] [address] [id number] [place] [address] Apr, [facility] [place] [facility] [address] [id number] [place] [address] Apr, [facility] [place] [facility] [address] [id number] [place] [address] March, [facility] [place] [facility] [address] [id number] [place] [address] March, [facility] [place] [facility] [address] [id number] [place] [address] March, [facility] [place] [facility] [address] [id number] [place] [address] March, [facility] [place] [facility] [address] [id number] [place] [address] March, [facility] [place] [facility] [address] [id number] [place] [address] March, [facility] [place] [facility] [address] [id number] [place] [address] Feb, [facility] [place] [facility] [address] [id number] [place] [address] Feb, [facility] [place] [facility] [address] [id number] [place] [address] Feb, [facility] [place] [facility] [address] [id number] [place] [address] Feb, [facility] [place] [facility] [address] [id number] [place] [address] Feb, [facility] [place] [facility] [address] [id number] [place] [address] Feb, [facility] [place] [facility] [address] [id number] [place] [address] Feb, [facility] [place] [facility] [address] [id number] [place] [address] Feb, [facility] [place] [facility] [address] [id number] [place] [address] Feb, [facility] [place] [facility] [address] [id number] [place] [address] Feb, [facility] [place] [facility] [address] [id number] [place] [address] Jan, [facility] [place] [facility] [address] [id number] [place] [address] Jan, [facility] [place] [facility] [address] [id number] [place] [address] Jan, [facility] [place] [facility] [address] [id number] [place] [address] Jan, [facility] [place] [facility] [address] [id number] [place] [address] Jan, [facility] [place] [facility] [address] [id number] [place] [address] Jan, [facility] [place] [facility] [address] [id number] [place] [address] Jan, [facility] [place] [facility] [address] [id number] [place] [address] Jan, [facility] [place] [facility] [address] [id number] [place] [address] Dec, [facility] [place] [facility] [address] [id number] [place] [address] Dec, [facility] [place] [facility] [address] [id number] [place] [address] Dec, [facility] [place] [facility] [address] [id number] [place] [address] Dec, [facility] [place] [facility] [address] [id number] [place] [address] Dec, [facility] [place] [facility] [address] [id number] [place] [address] Dec, [facility] [place] [facility] [address] [id number] [place] [address] Dec, [facility] [place] [facility] [address] [id number] [place] [address] Dec, [facility] [place] [facility] [address] [id number] [place] [address] Nov, [facility] [place] [facility] [address] [id number] [place] [address] Nov, [facility] [place] [facility] [address] [id number] [place] [address] Nov, [facility] [place] [facility] [address] [id number] [place] [address] Nov, [facility] [place] [facility] [address] [id number] [place] [address] Nov, [facility] [place] [facility] [address] [id number] [place] [address] Nov, [facility] [place] [facility] [address] [id number] [place] [address] Nov, [facility] [place] [facility] [address] [id number] [place] [address] Nov, [facility] [address] [id number] [place] [address] Nov, [facility] [place] [facility] [address] [id number] [place] [address] Nov, [facility] [address] [id number] [place] [address] Nov, [facility] [place] [facility] [address] [id number] [place] [address] Oct, [facility] [place] [facility] [address] [id number] [place] [address] Oct, [facility] [place] [facility] [address] [id number] [place] [address] Oct, [facility] [address] [facility] [id number] [place] [address] Oct, [facility] [place] [facility] [address] [id number] [place] [address] Sep, [facility] [place] [facility] [address] [id number] [place] [address] Sep, [facility] [place] [facility] [address] [facility] [id number] [place] [address] Sep, [facility] [place] [facility] [address] [id number] [place] [address] Sep, [facility] [place] [facility] [address] [id number] [address] Aug, [facility] [place] [facility] [address] [id number] [place] [address] Aug, [facility] [place] [facility] [address] [facility] [id number] [place] [address] Aug, [facility] [place] [facility] [address] [id number] [place] [address] Aug, [facility] [place] [facility] [address] [id number] [place] [address] Aug, [facility] [place] [facility] [address] [id number] [place] [address] Aug, [facility] [place] [facility] [address] [id number] [place] [address] Aug, [facility] [place] [facility] [address] [id number] [place] [address] Aug, [facility] [address] [id number] [place] [address] 28 Jul, 2013 [facility] [place] [facility] [address] [id number] [place] [address] 27 Jul, 2013 [facility] [address] [id number] [place] [address] 26 Jul, 2012 [facility] [place] [facility] [address] [id number] [place] [address] 24 Jul, 2012 [facility] [place] [facility] [address] [id number] [place] [address] 24 Jul, 2013 [facility] [place] [facility] [address] [id number] [place] [address] 23 Jul, 2013 [facility] [place] [facility] [address] [id number] [place] [address] 19 Jul, 2012 [facility] [place] [facility] [address] [id number], [place] [address] 18 Sep, 2012 [facility] [place] [facility] [address] [id number] [place] [address] 17 Sep, 2012 [facility] [place] [facility] [address] [id number] [place] [address] 16 Sep, 2012 [facility] [place] [facility] [address] [id number] [place] [address] 13 Sep, 2012 [facility] [place] [facility] [address] [id number] [place] [address] Jul, [facility] [place] [facility] [address] [id number] [place] [address] Jul, [facility] [place] [facility] [address] [id number] [place] [address] Jul, [facility] [place] [facility] [address] [id number] [place] [address] Jul, [facility] [place] [facility] [address] [id number] [place] [address] Jun, [facility] [place] [facility] [address] [id number] [place] [address] Jun, [facility] [place] [facility] [address] [id number] [place] [address] Jun, [facility] [place] [facility] [address] [id number] [place] [address] May, [facility] [place] [facility] [address] [id number] [place] [address] May, [facility] [place] [facility] [address] [id number] [place] [address] May, [facility] [place] [facility] [address] [id number] [place] [address] May, [facility] [place] [facility] [address] [id number] [place] [address] Apr, [facility] [place] [facility] [address] [id number] [place] [address] Apr, [facility] [place] [facility] [address] [id number] [place] [address] Apr, [facility] [place] [facility] [address] [id number] [place] [address] Apr, [facility] [place] [facility] [address] [id number] [place] [address] March, [facility] [place] [facility] [address] [id number] [place] [address] March, [facility] [address] [id number] [place] [address] March, [facility] [address] [id number] [place] [address] Feb, [facility] [address] [id number] [place] [address] Feb, [facility] [address] [id number] [place] [address] Jan, [facility] [address] [id number] [place] [address] Jan, [facility] [address] [facility] [id number] [place] [address] Jan, [facility] [address] [id number] [place] [address] Jan, [facility] [address] [id number] [place] [address] Jan, [facility] [address] [id number] [place] [address] Dec, [facility] [address] [facility] [id number] [place] [address] Dec, [facility] [address] [id number] [place] [address] Dec, [facility] [address] [id number] [place] [address] Dec, [facility] [place] [facility] [address] [id number] [place] [address] Dec, [facility] [address] [id number] [place] [address] 06 Dec, 2012 [facility] [address] [id number] [place] [address] 04 Dec, 2012 [facility] [address] [id number] [place] [address] Dec, [facility] [place] [facility] [address] [id number] [place] [address] Nov, [facility] [address] [id number] [place] [address] Nov, [facility] [place] [facility] [address] [id number] [place] [address] Nov, [facility] [address] [id number] [place] [address] Nov, [facility] [address] [id number] [place] [address] Nov, [facility] [address] [id number] [place] [address] Nov, [facility] [address] [id number] [place] [address] Nov, [facility] [address] [id number] [place] [address] Oct, [facility] [address] [id number] [place] [address] Oct, [facility] [address] [id number] [place] [address] Oct, [facility] [place] [facility] [address] [id number] [place] [address] Oct, [facility] [place] [facility] [address] [id number] [place] [address] Oct, [facility] [place] [facility] [address] [id number] [place] [address] Oct, [facility] [place] [facility] [address] [id number] [place] [address] Oct, [facility] [place] [facility] [address] [id number] [place] [address] Oct, [facility] [place] [facility] [address] [id number] [place] [address] Sep, [facility] [place] [facility] [address] [id number] [place] [address] Sep, [facility] [place] [facility] [address] [id number] [place] [address] Sep, [facility] [place] [facility] [address] [id number] [place] [address] Sep, [facility] [place] [facility] [address] [id number] [place] [address] Sep, [facility] [place] [facility] [address] [id number] [place] [address] Sep, [facility] [place] [facility] [address] [id number] [place] [address] Sep, [facility] [place] [facility] [address] [id number] [place] [address] Sep, [facility] [place] [facility] [address] [id number] [place] [address] Sep, [facility] [place] [facility] [address] [id number] [place] [address] Sep, [facility] [place] [facility] [address] [id number] [place] [address] Sep, [facility] [place] [facility] [address] [id number] [place] [address] Sep, [facility] [place] [facility] [address] [id number] [place] [address] Sep, [facility] [place] [facility] [address] [id number] [place] [address] Sep, [facility] [place] [facility] [address] [id number] [place] [address] Sep, [facility] [place] [facility] [address] [id number] [place] [address] Sep, [facility] [place] [facility] [address] [id number] [place] [address] Sep, [facility] [place] [facility] [address] [id number] [place] [address] Sep, [facility] [place] [facility] [address] [id number] [place] [address] Sep, [facility] [place] [facility] [address] [id number] [place] [address] Sep, [facility] [place] [facility] [address] [id number] [place] [address] Aug, [facility] [place] [facility] [address] [id number] [place] [address] Aug, [facility] [place] [facility] [address] [id number], [place] [address] 29 Aug, 2012 [facility] [place] [facility] [address] [id number] [place] [address] Aug, [facility] [place] [facility] [address] [facility] [id number], [place] [address] Aug, [facility] [place] [facility] [address] [facility] [id number], [place] [address] Aug, [facility] [place] [facility] [address] [id number], [place] [address] 18 Aug, 2012 [facility] [place] [facility] [address] [id number], [place] [address] 17 Aug, 2012 [facility] [place] [facility] [address] [facility] [id number], [place] [address] 16 Aug, 2012 [facility] [place] [facility] [address] [facility] [id number], [place] [address] 16 Aug, 2012 [facility] [place] [facility] [address] [id number], [place] [address] Aug, [facility] [place] [facility] [address] [id number] [place] [address] Aug, [facility] [place] [facility] [address] [id number] [place] [address] Aug, [facility] [place] [facility] [address] [id number] [place] [address] Aug, [facility] [place] [facility] [address] [id number] [place] [address] Aug, [facility] [place] [facility] [address] [id number] [place] [address] 14 Jul, 2012 [facility] [place] [facility] [address] [id number] [place] [address] Jul, [facility] [place] [facility] [address] [facility] [id number] [place] [address] Jun, [facility] [place] [facility] [address] [id number] [place] [address] Jun, [facility] [place] [facility] [address] [id number] [place] [address] May, [facility] [place] [facility] [address] [facility] [id number] [place] [address] May, [facility] [place] [facility] [address] [id number] [place] [address] May, [facility] [place] [facility] [address] [id number][place] [address] May, [facility] [place] [facility] [address] [id number] [place] [address] May, [facility] [place] [facility] [address] [facility] [id number] [place] [address] May, [facility] [place] [facility] [address] [facility] [id number] [place] [address] Apr, [facility] [place] [facility] [address] [id number] [place] [address] 15 Apr, 2012 [facility] [place] [facility] [address] [id number] [place] [address] March, [facility] [place] [facility] [address] [id number] [place] [address] March, [facility] [place] [facility] [address] [id number] [place] [address] March, [facility] [place] [facility] [address] [id number] [place] [address] March, [facility] [place] [facility] [address] [id number] [place] [address] March, [facility] [place] [facility] [address] [id number] [place] [address] March, [facility] [place] [facility] [address] [id number] [place] [address] Feb, [facility] [place] [facility] [address] [id number] [place] [address] Feb, [facility] [place] [facility] [address] [id number] [place] [address] Feb, [facility] [place] [facility] [address] [id number] [place] [address] Feb, [facility] [place] [facility] [address] [id number] [place] [address] Feb, [facility] [place] [facility] [address] [id number] [place] [address] 19 Feb, 2012 [facility] [place] [facility] [address] [id number] [place] [address] Feb, [facility] [place] [facility] [address] [id number] [place] [address] Feb, [facility] [place] [facility] [address] [id number] [place] [address] 04 Feb, 2012 [facility] [place] [facility] [address] [id number] [place] [address] 30 Jan, 2012 [facility] [place] [facility] [address] [id number] [place] [address] 27 Jan, 2012 [facility] [place] [facility] [address] [id number] [place] [address] Jan, [facility] [place] [facility] [address] [id number] [place] [address] 22 Jan, 2012 [facility] [place] [facility] [address] [id number] [place] [address] 21 Jan, 2012 [facility] [place] [facility] [address] [id number] [place] [address] 20 Jan, 2012 [facility] [place] [facility] [address] [id number] [place] [address] 14 Jan, 2012 [facility] [place] [facility] [address] [id number] [place] [address] Jan, [facility] [place] [facility] [address] [id number] [place] [address] Jan, [facility] [place] [facility] [address] [id number] [place] [address] 08 Jan, 2012 [facility] [place] [facility] [address] [id number] [place] [address] 07 Jan, 2012 [facility] [place] [facility] [address] [id number], [place] [address] 06 Jan, 2012 [facility] [place] [facility] [address] [id number] [place] [address] Jan, [facility] [place] [facility] [address] [id number] [place] [address] Jan, [facility] [place] [facility] [address] [id number] [place] [address] Dec, [facility] [place] [facility] [address] [id number] [place] [address] 27 Dec, 2011 [facility] [place] [facility] [address] [id number] [place] [address] Dec, [facility] [place] [facility] [address] [id number] [place] [address] 23 Dec, 2011 [facility] [place] [facility] [address] [id number] [place] [address] 16 Dec, 2011 [facility] [place] [facility] [address] [id number] [place] [address] 08 Dec, 2011 [facility] [place] [facility] [address] [id number] [place] [address] 08 Dec, 2011 [facility] [place] [facility] [address] [facility] [id number] [place] [address] Dec, [facility] [place] [facility] [address] [facility] [id number] [place] [address] 07 Dec, 2011 [facility] [place] [facility] [address] [facility] [id number] [place] [address] Nov, [facility] [place] [facility] [address] [facility] [id number] [place] [address] Nov, [facility] [place] [facility] [address] [facility] [id number] [place] [address] Nov, [facility] [place] [facility] [address] [facility] [id number] [place] [address] Nov, [facility] [place] [facility] [address] [id number] [place] [address] Oct, [facility] [place] [facility] [address] [facility] [id number] [place] [address] Oct, [facility] [place] [facility] [address] [facility] [id number] [place] [address] Oct, [facility] [place] [facility] [address] [facility] [id number] [place] [address] Oct, [facility] [place] [facility] [address] [id number] [place] [address] Oct, [facility] [place] [facility] [address] [id number] [place] [address] Oct, [facility] [place] [facility] [address] [facility] [id number] [place] [address] Oct, [facility] [place] [facility] [address] [id number], [place] [address] Sep, [facility] [place] [facility] [address] [id number] [place] [address] Sep, [facility] [place] [facility] [address] [id number], [place] [address] Sep, [facility] [place] [facility] [address] [id number] [place] [address] Sep, [facility] [place] [facility] [address] [id number], [place] [address] Sep, [facility] [place] [facility] [address] [id number], [place] [address] Sep, [facility] [place] [facility] [address] [id number], [place] [address] Sep, [facility] [place] [facility] [address] [id number], [place] [address] Sep, [facility] [place] [facility] [address] [id number], [place] [address] Sep, [facility] [place] [facility] [address] [id number], [place] [address] Aug, [facility] [place] [facility] [address] [id number], [place] [address] Aug, [facility] [place] [facility] [address] [id number], [place] [address] Aug, [facility] [place] [facility] [address] [id number] [place] [address] May, [facility] [address] [id number] [place] [address] 13 Nov, 2010 [facility] [address] [id number] [place] [address] 31 Oct, 2010 [facility] [address] [id number] [place] [address] 30 Oct, 2010 [facility] [address] [id number] [place] [address] 30 Oct, 2010 [facility] [address] [id number] [place] [address] Oct, [facility] [address] [id number] [place] [address] Oct, [facility] [address] [id number] [place] [address] Sep, [facility] [address] [id number] [place] [address] Sep, [facility] [address] [id number] [place] [address] 14 Jul, 2010 [facility] [address] [facility] [id number] [place] [address] 31 Oct, 2009 [facility] [address] [id number] [place] [address] Oct, [facility] [address] [id number] [place] [address] 04 Oct, 2009 [facility] [place] [facility] [address] [id number] [place] [address] 03 Oct, 2009 [facility] [place] [facility] [address] [id number] [place] [address] 30 Sep, 2009 [facility] [address] [id number] [place] [address] 13 Sep, 2009 [facility] [address] [facility] [id number], [place] [address] Sep, [facility] [address] [id number], [place] [address] Sep, [facility] [address] [id number], [place] [address] Sep, [facility] [id number], [place] [address] Jul, [facility] [address] [id number] [address] Apr, [facility] [id number] [address] Dec, IMMUNIZATIONS No Known Immunizations SOCIAL HISTORY [...]
--- OUTSIDE RECORDS SUMMARY | 2019-06-14 11:08 | XMS REPORT ---
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 Name Role Phone ETELVINA LEONARD Unavailable PROBLEMS Type Condition ICD9-CM Code WKG50-JC Code Onset Dates Condition Status SNOMED Code Problem Acquired hypothyroidism E03.9 Active 929511734 Problem Prediabetes R73.03 Active 803740154 Problem Essential hypertension I10 Active 50030371 Problem Mixed hyperlipidemia E78.2 Active 394398767 Problem Gastroesophageal reflux disease, esophagitis presence not specified K21.9 Active 904702603 Problem Reactive depression F32.9 Active 20607174 Problem Lumbago with sciatica, right side M54.41 Active [id number] Problem Lumbago with sciatica, left side M54.42 Active 058294519 Problem Cigarette nicotine dependence without complication F17.210 Active 82112628 Problem DM neuro manif type II E11.49 Active 44428426 Problem Seizures R56.9 Active 76243511 Problem Adjustment disorder with disturbance of emotion F43.29 Active 55341005 Problem Chronic obstructive pulmonary disease, unspecified COPD type J44.9 Active 47027340 Problem Major depressive disorder, recurrent, moderate F33.1 Active 662148393 Problem Other chronic pain G89.29 Active 71055292 Problem Iron deficiency anemia due to chronic blood loss D50.0 Active 607460056 Problem Seasonal allergies J30.2 Active 780560642 Problem Sinusitis J32.9 Active 79457331 Problem Chronic pain G89.29 Active 67038848 ALLERGIES No Information ENCOUNTERS Encounter Location Date Diagnosis [facility] [address] [address] May, [facility] [address] [address] May, [facility] [id number] [place] [address] May, [place] [address] [address] Apr, [place] [address] [id number] [place] [address] 18 Apr, 2019 Type 2 diabetes mellitus with hyperglycemia E11.65 [place] [address] [address] 17 Apr, 2019 Type 2 diabetes mellitus with hyperglycemia E11.65 [place] [address] [address] 14 Apr, 2019 Major depressive disorder, recurrent, moderate F33.1 and Adjustment disorder with disturbance of emotion F43.29 [place] [address] [address] Apr, [place] [address] [address] Apr, Diarrhea, unspecified type R19.7 [place] [address] [place] [id number] [place] [address] Apr, Low back pain M54.5 ; Other chronic pain G89.29 and Anemia, unspecified type D64.9 [place] [address] [id number] [place] [address] Apr, [place] [address] [address] Apr, Diarrhea, unspecified type R19.7 and Lumbar radiculopathy, chronic M54.16 [facility] [place] [address] [address] March, Non-intractable vomiting with nausea, unspecified vomiting type R11.2 and Muscle cramps R25.2 [place] [address] [id number] [place] [address] March, [place] [address] [address] 17 Mar, 2019 Other chronic pain G89.29 [facility] [id number] [place] [address] March, Type 2 diabetes mellitus with hyperglycemia E11.65 ; Flank pain R10.9 ; Acute cystitis without hematuria N30.00 ; Chronic obstructive pulmonary disease, unspecified COPD type J44.9 and Moderate episode of recurrent major depressive disorder F33.1 [facility] [id number] [place] [address] March, [facility] [id number] [place] [address] March, Wheezing R06.2 and Viral upper respiratory tract infection J06.9 [place] [id number] [place] [address] Feb, [facility] [id number] [place] [address] Feb, [facility] [id number] [place] [address] Jan, [facility] [id number] [place] [address] Jan, Acute cystitis with hematuria N30.01 and Dysuria R30.0 [facility] [id number] [place] [address] Jan, [facility] [id number] [place] [address] Dec, [facility] [id number] [place] [address] Dec, [facility] [id number] [place] [address] Dec, [facility] [id number] [place] [address] Dec, [facility] [id number] [address] Dec, Routine adult health maintenance Z00.00 ; Chronic obstructive pulmonary disease, unspecified COPD type J44.9 and Encounter for immunization Z23 [facility] [address] [address] Nov, [facility] [id number] [place] [address] Nov, UTI (urinary tract infection) N39.0 and Other chronic pain G89.29 [facility] [id number] [place] [address] Nov, [facility] [id number] [place] [address] Nov, [facility] [id number] [place] [address] Nov, Painful urination R30.9 and UTI (urinary tract infection) N39.0 [facility] [address] [address] Nov, [facility] [address] [address] Nov, UTI (urinary tract infection) N39.0 [facility] [address] [address] Nov, Dysuria R30.0 ; UTI (urinary tract infection) N39.0 and Chronic pain G89.29 [facility] [address] [id number] [address] Nov, [facility] [id number] [place] [address] Oct, Cough R05 [facility] [address] [address] 14 Oct, 2018 Sinusitis J32.9 [place] [address] [id number] [place] [address] Oct, [place] [address] [address] Oct, UTI (urinary tract infection) N39.0 and URI (upper respiratory infection) J06.9 [place] [address] [id number] [place] [address] Sep, Pain in thoracic spine M54.6 [place] [address] [id number] [place] [address] Sep, Type 2 diabetes mellitus with hyperglycemia E11.65 [place] [address] [id number] [place] [address] Sep, Chronic obstructive pulmonary disease, unspecified COPD type J44.9 ; Abrasion of right ear canal, initial encounter S00.411A ; Cigarette nicotine dependence without complication F17.210 ; Right leg pain M79.604 and Seasonal allergies J30.2 [place] [address] [id number] [place] [address] Aug, [place] [address] [id number] [place] [address] Aug, [place] [address] [id number] [place] [address] Aug, Pain in thoracic spine M54.6 [place] [address] [id number] [place] [address] Aug, [place] [address] [id number] [place] [address] Aug, Chronic obstructive pulmonary disease, unspecified COPD type J44.9 ; Complete amputation of right foot, 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 ; Cigarette nicotine dependence without complication F17.210 and BMI 40.0-44.9, adult Z68.41 [place] [address] [id number] [place] [address] Jul, [place] [address] [id number] [place] [address] Jul, [place] [address] [address] Jul, Onychomycosis B35.1 ; Onychocryptosis L60.0 and DM neuro manif type II E11.49 [place] [address] [address] Jun, Pain in thoracic spine M54.6 [place] [address] [address] Jun, Iron deficiency anemia due to chronic blood loss D50.0 and Hematochezia K92.1 [place] [address] [address] Jun, Gastroenteritis K52.9 and Abnormal RBC indices R71.8 [place] [address] [address] Jun, [place] [address] [address] Jun, Chest congestion R09.89 and Seizures R56.9 [place] [address] [address] May, Pain in thoracic spine M54.6 [place] [address] [id number] [place] [address] May, [place] [address] [id number] [place] [address] May, [place] [address] [address] May, [place] [address] [address] May, Acute non-recurrent frontal sinusitis J01.10 and Dermatitis L30.9 [place] [address] [address] May, [facility] [id number] [place] [address] May, Pain in thoracic spine M54.6 [facility] [id number] [place] [address] May, [facility] [id number] [place] [address] May, Acute nasopharyngitis J00 [facility] [id number] [place] [address] May, [facility] [id number] [place] [address] May, [facility] [id number] [place] [address] Apr, [facility] [id number] [place] [address] Apr, [facility] [id number] [place] [address] Apr, [facility] [address], [place] [address] Apr, [facility] [id number] [place] [address] Apr, Pain in right ankle and joints of right foot M25.571 [facility] [address], [place] [address] Apr, [facility] [id number] [place] [address] Apr, Bronchitis J40 ; Pain in right ankle and joints of right foot M25.571 ; Other chronic pain G89.29 ; Prediabetes R73.03 ; Chronic obstructive pulmonary disease, unspecified COPD type J44.9 and Cigarette nicotine dependence without complication F17.210 [facility] [id number] [place] [address] 13 Apr, 2018 Seasonal allergic rhinitis, unspecified trigger J30.2 [place] [address] [id number] [place] [address] 08 Apr, 2018 Onychomycosis B35.1 ; Onychocryptosis L60.0 and DM neuro manif type II E11.[address] [address] Apr, Reactive depression F32.9 ; Thoracic myofascial strain, initial encounter S29.019A and Leg cramps R25.[address] [address] March, [place] [address] [address] March, Type 2 diabetes mellitus with hyperglycemia E11.65 [place] [address] [address] March, Reactive depression F32.[address] [address] March, Pain in thoracic spine M54.6 and Other chronic pain G89.29 [place] [address] [address] Feb, [place] [address] [address] Jan, Reactive depression F32.9 ; Essential hypertension I10 ; Gastroesophageal reflux disease, esophagitis presence not specified K21.9 ; Lumbago with sciatica, left side M54.42 and Lumbago with sciatica, right side M54.41 [place] [address] [id number] [place] [address] Jan, Reactive depression F32.9 and Pharyngoesophageal dysphagia R13.14 [place] [id number] [address] Jan, [place] [address] [address] Jan, Encounter for immunization Z23 [place] [address] [address] Jan, Onychomycosis B35.1 and DM neuro manif type II E11.49 [place] [address] [address] Jan, [place] [address] [address] Jan, Prediabetes R73.03 [place] [address] [address] Dec, [place] [address] [address] Dec, Essential hypertension I10 ; Mixed hyperlipidemia E78.2 ; Acquired hypothyroidism E03.9 ; Reactive depression F32.9 and Prediabetes R73.03 [place] [address] [address] Dec, [place] [address] [address] Dec, [place] [address] [address] Dec, DM neuro manif type II E11.49 [facility] [address] [address] Dec, Bruise T14.8XXA ; Type 2 diabetes mellitus with hyperglycemia E11.65 and 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 [place] [address] [id number] [place] [address] Oct, [place] [address] [address] March, Onychomycosis B35.1 and DM neuro manif type II E11.49 [facility] [id number] [place] [address] Jun, [facility] [id number] [address] Jun, [facility] [id number] [place] [address] Jun, COPD with acute exacerbation 491.21 [facility] [id number] [place] [address] Apr, [facility] [id number] [place] [address] Feb, [facility] [id number] [place] [address] Feb, [facility] [id number] [address] Jan, [facility] [address], [place] [address] Jan, [facility] [id number] [address] Jan, [facility] [address], [place] [address] Jan, [facility] [address], [place] [address] Jan, [facility] [address], [place] [address] Jan, [facility] [address], [place] [address] Jan, [facility] [address], [place] [address] Jan, [facility] [id number] [place] [address] 23 Jan, 2014 [facility] [place] [facility] [address] [id number] [place] [address] 19 Jan, 2014 [facility] [place] [facility] [address] [id number] [place] [address] 19 Jan, 2014 [facility] [place] [facility] [address] [id number] [place] [address] 18 Jan, 2014 [facility] [place] [facility] [address] [id number] [place] [address] 18 Jan, 2014 [facility] [place] [facility] [address] [id number] [place] [address] 16 Jan, 2014 [facility] [place] [facility] [address] [id number] [place] [address] 16 Jan, 2014 [facility] [place] [facility] [address] [id number] [place] [address] 16 Jan, 2014 [facility] [place] [facility] [address] [id number] [place] [address] 16 Jan, 2014 [facility] [place] [facility] [address] [id number] [place] [address] 15 Jan, 2014 [facility] [place] [facility] [address] [id number] [place] [address] 13 Jan, 2014 [facility] [place] [facility] [address] [id number] [place] [address] 13 Jan, 2014 [facility] [place] [facility] [address] [id number] [place] [address] 13 Jan, 2014 [facility] [place] [facility] [address] [id number] [place] [address] 13 Jan, 2014 [facility] [place] [facility] [address] [id number] [place] [address] 12 Jan, 2014 [facility] [place] [facility] [address] [id number] [place] [address] Jan, [facility] [place] [facility] [address] [id number] [place] [address] Jan, [facility] [place] [facility] [address] [id number] [place] [address] Dec, [facility] [place] [facility] [address] [id number] [place] [address] Dec, [facility] [place] [facility] [address] [id number] [place] [address] Dec, [facility] [place] [facility] [address] [id number] [place] [address] Dec, [facility] [place] [facility] [address] [id number] [place] [address] Dec, [facility] [place] [facility] [address] [id number] [place] [address] Dec, [facility] [place] [facility] [address] [id number] [place] [address] Dec, [facility] [place] [facility] [address] [id number] [place] [address] Dec, [facility] [place] [facility] [address] [id number] [place] [address] Dec, [facility] [place] [facility] [address] [id number] [place] [address] Dec, [facility] [place] [facility] [address] [id number] [place] [address] Dec, [facility] [place] [facility] [address] [id number] [place] [address] Dec, [facility] [place] [facility] [address] [id number] [place] [address] Nov, [facility] [place] [facility] [address] [id number] [place] [address] Nov, [facility] [place] [facility] [address] [id number] [place] [address] Nov, [facility] [address] [id number] [place] [address] Nov, [facility] [place] [facility] [address] [id number] [place] [address] Nov, [facility] [address] [id number] [place] [address] Nov, [facility] [address] [id number] [place] [address] Nov, [facility] [address] [id number] [place] [address] Nov, [facility] [address] [id number] [place] [address] Nov, [facility] [address] [id number] [place] [address] Nov, [facility] [address] [id number] [place] [address] Nov, [facility] [address] [id number] [place] [address] Nov, [facility] [address] [id number] [place] [address] Oct, [facility] [address] [id number] [place] [address] Oct, [facility] [address] [id number] [place] [address] Oct, [facility] [place] [facility] [address] [id number] [place] [address] Oct, [facility] [place] [facility] [address] [id number] [place] [address] Oct, [facility] [address] [id number] [place] [address] Oct, [facility] [place] [facility] [address] [id number] [place] [address] Oct, [facility] [place] [facility] [address] [id number] [place] [address] Oct, [facility] [place] [facility] [address] [id number] [place] [address] 17 Oct, 2014 [facility] [place] [facility] [address] [id number] [place] [address] 17 Oct, 2014 [facility] [place] [facility] [address] [id number] [place] [address] 16 Oct, 2014 [facility] [place] [facility] [address] [id number] [place] [address] 16 Oct, 2014 [facility] [place] [facility] [address] [id number] [place] [address] 15 Oct, 2014 [facility] [place] [facility] [address] [id number] [place] [address] 15 Oct, 2014 [facility] [place] [facility] [address] [id number] [place] [address] Oct, [facility] [place] [facility] [address] [id number] [place] [address] Sep, [facility] [place] [facility] [address] [id number] [place] [address] Sep, [facility] [place] [facility] [address] [id number] [address] Sep, [facility] [place] [facility] [address] [id number] [place] [address] Sep, [facility] [place] [facility] [address] [id number] [place] [address] Aug, [facility] [place] [facility] [address] [id number], [place] [address] Aug, [facility] [place] [facility] [address] [id number], [place] [address] Aug, [facility] [place] [facility] [address] [id number] [place] [address] Aug, [facility] [place] [facility] [address] [id number] [place] [address] Aug, [facility] [place] [facility] [address] [id number] [place] [address] Aug, [facility] [place] [facility] [address] [id number] [place] [address] 29 Jul, 2014 [facility] [place] [facility] [address] [id number] [place] [address] 29 Jul, 2014 [facility] [place] [facility] [address] [id number] [place] [address] 15 Jul, 2014 [facility] [place] [facility] [address] [id number] [place] [address] 15 Jul, 2014 [facility] [place] [facility] [address] [id number] [place] [address] 08 Jul, 2014 [facility] [place] [facility] [address] [id number] [place] [address] 08 Jul, 2014 [facility] [place] [facility] [address] [id number] [place] [address] Jun, [facility] [place] [facility] [address] [id number] [place] [address] Jun, [facility] [place] [facility] [address] [id number], [place] [address] Jun, [facility] [place] [facility] [address] [id number] [place] [address] Jun, [facility] [place] [facility] [address] [id number] [place] [address] Jun, [facility] [place] [facility] [address] [id number] [place] [address] Jun, [facility] [place] [facility] [address] [id number] [place] [address] Jun, [facility] [place] [facility] [address] [id number] [place] [address] May, [facility] [place] [facility] [address] [id number] [place] [address] May, [facility] [place] [facility] [address] [id number] [place] [address] May, [facility] [place] [facility] [address] [id number] [place] [address] May, [facility] [place] [facility] [address] [id number] [place] [address] May, [facility] [place] [facility] [address] [id number] [place] [address] May, [facility] [place] [facility] [address] [id number] [place] [address] May, [facility] [place] [facility] [address] [id number] [place] [address] May, [facility] [place] [facility] [address] [id number] [place] [address] May, [facility] [place] [facility] [address] [id number] [place] [address] May, [facility] [place] [facility] [address] [id number] [place] [address] May, [facility] [place] [facility] [address] [id number] [place] [address] May, [facility] [place] [facility] [address] [id number] [place] [address] Apr, [facility] [place] [facility] [address] [id number] [place] [address] Apr, [facility] [place] [facility] [address] [id number] [place] [address] Apr, [facility] [place] [facility] [address] [id number] [place] [address] Apr, [facility] [place] [facility] [address] [id number] [place] [address] Apr, [facility] [place] [facility] [address] [id number] [place] [address] Apr, [facility] [place] [facility] [address] [id number] [place] [address] Apr, [facility] [place] [facility] [address] [id number] [place] [address] Apr, [facility] [place] [facility] [address] [id number] [place] [address] Apr, [facility] [place] [facility] [address] [id number] [place] [address] Apr, [facility] [place] [facility] [address] [id number] [place] [address] March, [facility] [place] [facility] [address] [id number] [place] [address] March, [facility] [place] [facility] [address] [id number] [place] [address] March, [facility] [place] [facility] [address] [id number] [place] [address] March, [facility] [place] [facility] [address] [id number] [place] [address] March, [facility] [place] [facility] [address] [id number] [place] [address] March, [facility] [place] [facility] [address] [id number] [place] [address] Feb, [facility] [place] [facility] [address] [id number] [place] [address] Feb, [facility] [place] [facility] [address] [id number] [place] [address] Feb, [facility] [place] [facility] [address] [id number] [place] [address] Feb, [facility] [place] [facility] [address] [id number] [place] [address] Feb, [facility] [place] [facility] [address] [id number] [place] [address] Feb, [facility] [place] [facility] [address] [id number] [place] [address] Feb, [facility] [place] [facility] [address] [id number] [place] [address] Feb, [facility] [place] [facility] [address] [id number] [place] [address] Feb, [facility] [place] [facility] [address] [id number] [place] [address] Feb, [facility] [place] [facility] [address] [id number] [place] [address] Jan, [facility] [place] [facility] [address] [id number] [place] [address] Jan, [facility] [place] [facility] [address] [id number] [place] [address] Jan, [facility] [place] [facility] [address] [id number] [place] [address] Jan, [facility] [place] [facility] [address] [id number] [place] [address] Jan, [facility] [place] [facility] [address] [id number] [place] [address] Jan, [facility] [place] [facility] [address] [id number] [place] [address] Jan, [facility] [place] [facility] [address] [id number] [place] [address] Jan, [facility] [place] [facility] [address] [id number] [place] [address] Dec, [facility] [place] [facility] [address] [id number] [place] [address] Dec, [facility] [place] [facility] [address] [id number] [place] [address] Dec, [facility] [place] [facility] [address] [id number] [place] [address] Dec, [facility] [place] [facility] [address] [id number] [place] [address] Dec, [facility] [place] [facility] [address] [id number] [place] [address] Dec, [facility] [place] [facility] [address] [id number] [place] [address] Dec, [facility] [place] [facility] [address] [id number] [place] [address] Dec, [facility] [place] [facility] [address] [id number] [place] [address] Nov, [facility] [place] [facility] [address] [id number] [place] [address] Nov, [facility] [place] [facility] [address] [id number] [place] [address] Nov, [facility] [place] [facility] [address] [id number] [place] [address] Nov, [facility] [place] [facility] [address] [id number] [place] [address] Nov, [facility] [place] [facility] [address] [id number] [place] [address] Nov, [facility] [place] [facility] [address] [id number] [place] [address] Nov, [facility] [place] [facility] [address] [id number] [place] [address] Nov, [facility] [address] [id number] [place] [address] Nov, [facility] [place] [facility] [address] [id number] [place] [address] Nov, [facility] [address] [id number] [place] [address] Nov, [facility] [place] [facility] [address] [id number] [place] [address] Oct, [facility] [place] [facility] [address] [id number] [place] [address] Oct, [facility] [place] [facility] [address] [id number] [place] [address] Oct, [facility] [address] [facility] [id number] [place] [address] Oct, [facility] [place] [facility] [address] [id number] [place] [address] Sep, [facility] [place] [facility] [address] [id number] [place] [address] Sep, [facility] [place] [facility] [address] [facility] [id number] [place] [address] Sep, [facility] [place] [facility] [address] [id number] [place] [address] Sep, [facility] [place] [facility] [address] [id number], [place] [address] Aug, [facility] [place] [facility] [address] [id number] [place] [address] Aug, [facility] [place] [facility] [address] [facility] [id number] [place] [address] Aug, [facility] [place] [facility] [address] [id number] [place] [address] Aug, [facility] [place] [facility] [address] [id number] [place] [address] Aug, [facility] [place] [facility] [address] [id number] [place] [address] Aug, [facility] [place] [facility] [address] [id number] [place] [address] Aug, [facility] [place] [facility] [address] [id number] [place] [address] Aug, [facility] [address] [id number] [place] [address] 28 Jul, 2013 [facility] [place] [facility] [address] [id number] [place] [address] 27 Jul, 2013 [facility] [address] [id number] [place] [address] 26 Jul, 2012 [facility] [place] [facility] [address] [id number] [place] [address] 24 Jul, 2012 [facility] [place] [facility] [address] [id number] [place] [address] 24 Jul, 2013 [facility] [place] [facility] [address] [id number] [place] [address] 23 Jul, 2013 [facility] [place] [facility] [address] [id number] [place] [address] 19 Jul, 2012 [facility] [place] [facility] [address] [id number], [place] [address] 18 Sep, 2012 [facility] [place] [facility] [address] [id number] [place] [address] 17 Sep, 2012 [facility] [place] [facility] [address] [id number] [place] [address] 16 Sep, 2012 [facility] [place] [facility] [address] [id number] [place] [address] 13 Sep, 2012 [facility] [place] [facility] [address] [id number] [place] [address] Jul, [facility] [place] [facility] [address] [id number] [place] [address] Jul, [facility] [place] [facility] [address] [id number] [place] [address] Jul, [facility] [place] [facility] [address] [id number] [place] [address] Jul, [facility] [place] [facility] [address] [id number] [place] [address] Jun, [facility] [place] [facility] [address] [id number] [place] [address] Jun, [facility] [place] [facility] [address] [id number] [place] [address] Jun, [facility] [place] [facility] [address] [id number] [place] [address] May, [facility] [place] [facility] [address] [id number] [place] [address] May, [facility] [place] [facility] [address] [id number] [place] [address] May, [facility] [place] [facility] [address] [id number] [place] [address] May, [facility] [place] [facility] [address] [id number] [place] [address] Apr, [facility] [place] [facility] [address] [id number] [place] [address] Apr, [facility] [place] [facility] [address] [id number] [place] [address] Apr, [facility] [place] [facility] [address] [id number] [place] [address] Apr, [facility] [place] [facility] [address] [id number] [place] [address] March, [facility] [place] [facility] [address] [id number] [place] [address] March, [facility] [address] [id number] [place] [address] March, [facility] [address] [id number] [place] [address] Feb, [facility] [address] [id number] [place] [address] Feb, [facility] [address] [id number] [place] [address] Jan, [facility] [address] [id number] [place] [address] Jan, [facility] [address] [facility] [id number] [place] [address] Jan, [facility] [address] [id number] [place] [address] Jan, [facility] [address] [id number] [place] [address] Jan, [facility] [address] [id number] [place] [address] Dec, [facility] [address] [facility] [id number] [place] [address] Dec, [facility] [address] [id number] [place] [address] Dec, [facility] [address] [id number] [place] [address] Dec, [facility] [place] [facility] [address] [id number] [place] [address] Dec, [facility] [address] [id number] [place] [address] 06 Dec, 2012 [facility] [address] [id number] [place] [address] 04 Dec, 2012 [facility] [address] [id number] [place] [address] Dec, [facility] [place] [facility] [address] [id number] [place] [address] Nov, [facility] [address] [id number] [place] [address] Nov, [facility] [place] [facility] [address] [id number] [place] [address] Nov, [facility] [address] [id number] [place] [address] Nov, [facility] [address] [id number] [place] [address] Nov, [facility] [address] [id number] [place] [address] Nov, [facility] [address] [id number] [place] [address] Nov, [facility] [address] [id number] [place] [address] Oct, [facility] [address] [id number] [place] [address] Oct, [facility] [address] [id number] [place] [address] Oct, [facility] [place] [facility] [address] [id number] [place] [address] Oct, [facility] [place] [facility] [address] [id number] [place] [address] Oct, [facility] [place] [facility] [address] [id number] [place] [address] Oct, [facility] [place] [facility] [address] [id number] [place] [address] Oct, [facility] [place] [facility] [address] [id number] [place] [address] Oct, [facility] [place] [facility] [address] [id number] [place] [address] Sep, [facility] [place] [facility] [address] [id number] [place] [address] Sep, [facility] [place] [facility] [address] [id number] [place] [address] Sep, [facility] [place] [facility] [address] [id number] [place] [address] Sep, [facility] [place] [facility] [address] [id number] [place] [address] Sep, [facility] [place] [facility] [address] [id number] [place] [address] Sep, [facility] [place] [facility] [address] [id number] [place] [address] Sep, [facility] [place] [facility] [address] [id number] [place] [address] Sep, [facility] [place] [facility] [address] [id number] [place] [address] Sep, [facility] [place] [facility] [address] [id number] [place] [address] Sep, [facility] [place] [facility] [address] [id number] [place] [address] Sep, [facility] [place] [facility] [address] [id number] [place] [address] Sep, [facility] [place] [facility] [address] [id number] [place] [address] Sep, [facility] [place] [facility] [address] [id number] [place] [address] Sep, [facility] [place] [facility] [address] [id number] [place] [address] Sep, [facility] [place] [facility] [address] [id number] [place] [address] Sep, [facility] [place] [facility] [address] [id number] [place] [address] Sep, [facility] [place] [facility] [address] [id number] [place] [address] Sep, [facility] [place] [facility] [address] [id number] [place] [address] Sep, [facility] [place] [facility] [address] [id number] [place] [address] Sep, [facility] [place] [facility] [address] [id number] [place] [address] Aug, [facility] [place] [facility] [address] [id number] [place] [address] Aug, [facility] [place] [facility] [address] [id number], [place] [address] 29 Aug, 2012 [facility] [place] [facility] [address] [id number] [place] [address] Aug, [facility] [place] [facility] [address] [facility] [id number], [place] [address] Aug, [facility] [place] [facility] [address] [facility] [id number], [place] [address] Aug, [facility] [place] [facility] [address] [id number], [place] [address] 18 Aug, 2012 [facility] [place] [facility] [address] [id number], [place] [address] 17 Aug, 2012 [facility] [place] [facility] [address] [facility] [id number], [place] [address] 16 Aug, 2012 [facility] [place] [facility] [address] [facility] [id number], [place] [address] 16 Aug, 2012 [facility] [place] [facility] [address] [id number], [place] [address] Aug, [facility] [place] [facility] [address] [id number] [place] [address] Aug, [facility] [place] [facility] [address] [id number] [place] [address] Aug, [facility] [place] [facility] [address] [id number] [place] [address] Aug, [facility] [place] [facility] [address] [id number] [place] [address] Aug, [facility] [place] [facility] [address] [id number] [place] [address] 14 Jul, 2012 [facility] [place] [facility] [address] [id number] [place] [address] Jul, [facility] [place] [facility] [address] [facility] [id number] [place] [address] Jun, [facility] [place] [facility] [address] [id number] [place] [address] Jun, [facility] [place] [facility] [id number] [place] [address] May, [facility] [place] [facility] [address] [facility] [id number] [place] [address] May, [facility] [place] [facility] [address] [id number] [place] [address] May, [facility] [place] [facility] [address] [id number], [place] [address] May, [facility] [place] [facility] [address] [id number] [place] [address] May, [facility] [place] [facility] [address] [facility] [id number] [place] [address] May, [facility] [place] [facility] [address] [facility] [id number] [place] [address] Apr, [facility] [place] [facility] [address] [id number] [place] [address] 15 Apr, 2012 [facility] [place] [facility] [address] [id number] [place] [address] March, [facility] [place] [facility] [address] [id number] [place] [address] March, [facility] [place] [facility] [address] [id number] [place] [address] March, [facility] [place] [facility] [address] [id number] [place] [address] March, [facility] [place] [facility] [address] [id number] [place] [address] March, [facility] [place] [facility] [address] [id number] [place] [address] March, [facility] [place] [facility] [address] [id number] [place] [address] Feb, [facility] [place] [facility] [address] [id number] [place] [address] Feb, [facility] [place] [facility] [address] [id number] [place] [address] Feb, [facility] [place] [facility] [address] [id number] [place] [address] Feb, [facility] [place] [facility] [address] [id number] [place] [address] Feb, [facility] [place] [facility] [address] [id number] [place] [address] 19 Feb, 2012 [facility] [place] [facility] [address] [id number] [place] [address] Feb, [facility] [place] [facility] [address] [id number] [place] [address] Feb, [facility] [place] [facility] [address] [id number] [place] [address] 04 Feb, 2012 [facility] [place] [facility] [address] [id number] [place] [address] 30 Jan, 2012 [facility] [place] [facility] [address] [id number] [place] [address] 27 Jan, 2012 [facility] [place] [facility] [address] [id number] [place] [address] Jan, [facility] [place] [facility] [address] [id number] [place] [address] 22 Jan, 2012 [facility] [place] [facility] [address] [id number] [place] [address] 21 Jan, 2012 [facility] [place] [facility] [address] [id number] [place] [address] 20 Jan, 2012 [facility] [place] [facility] [address] [id number] [place] [address] 14 Jan, 2012 [facility] [place] [facility] [address] [id number] [place] [address] Jan, [facility] [place] [facility] [address] [id number] [place] [address] Jan, [facility] [place] [facility] [address] [id number] [place] [address] 08 Jan, 2012 [facility] [place] [facility] [address] [id number] [place] [address] 07 Jan, 2012 [facility] [place] [facility] [address] [id number], [place] [address] 06 Jan, 2012 [facility] [place] [facility] [address] [id number] [place] [address] Jan, [facility] [place] [facility] [address] [id number] [place] [address] Jan, [facility] [place] [facility] [address] [id number] [place] [address] Dec, [facility] [place] [facility] [address] [id number] [place] [address] 27 Dec, 2011 [facility] [place] [facility] [address] [id number] [place] [address] Dec, [facility] [place] [facility] [address] [id number] [place] [address] 23 Dec, 2011 [facility] [place] [facility] [address] [id number] [place] [address] 16 Dec, 2011 [facility] [place] [facility] [address] [id number] [place] [address] 08 Dec, 2011 [facility] [place] [facility] [address] [id number] [place] [address] 08 Dec, 2011 [facility] [place] [facility] [address] [facility] [id number] [place] [address] Dec, [facility] [place] [facility] [address] [facility] [id number] [place] [address] 07 Dec, 2011 [facility] [place] [facility] [address] [facility] [id number] [place] [address] Nov, [facility] [place] [facility] [address] [facility] [id number] [place] [address] Nov, [facility] [place] [facility] [address] [facility] [id number] [place] [address] Nov, [facility] [place] [facility] [address] [facility] [id number] [place] [address] Nov, [facility] [place] [facility] [address] [id number] [place] [address] Oct, [facility] [place] [facility] [address] [facility] [id number] [place] [address] Oct, [facility] [place] [facility] [address] [facility] [id number] [place] [address] Oct, [facility] [place] [facility] [address] [facility] [id number] [place] [address] Oct, [facility] [place] [facility] [address] [id number] [place] [address] Oct, [facility] [place] [facility] [address] [id number] [place] [address] Oct, [facility] [place] [facility] [address] [facility] [id number] [place] [address] Oct, [facility] [place] [facility] [address] [id number], [place] [address] Sep, [facility] [place] [facility] [address] [id number] [place] [address] Sep, [facility] [place] [facility] [address] [id number], [place] [address] Sep, [facility] [place] [facility] [address] [id number] [place] [address] Sep, [facility] [place] [facility] [address] [id number], [place] [address] Sep, [facility] [place] [facility] [address] [id number], [place] [address] Sep, [facility] [place] [facility] [address] [id number], [place] [address] Sep, [facility] [place] [facility] [address] [id number], [place] [address] Sep, [facility] [place] [facility] [address] [id number], [place] [address] Sep, [facility] [place] [facility] [address] [id number], [place] [address] Aug, [facility] [place] [facility] [address] [id number], [place] [address] Aug, [facility] [place] [facility] [address] [id number], [place] [address] Aug, [facility] [place] [facility] [address] [id number] [place] [address] May, [facility] [address] [id number] [place] [address] 13 Nov, 2010 [facility] [address] [id number] [place] [address] 31 Oct, 2010 [facility] [address] [id number] [place] [address] 30 Oct, 2010 [facility] [address] [id number] [place] [address] 30 Oct, 2010 [facility] [address] [id number] [place] [address] Oct[facility] [address] [id number] [place] [address] Oct, [facility] [address] [id number] [place] [address] Sep, [facility] [address] [id number] [place] [address] Sep, [facility] [address] [id number] [place] [address] 14 Jul, 2010 [facility] [address] [facility] [id number] [place] [address] 31 Oct, 2009 [facility] [address] [id number] [place] [address] Oct, [facility] [address] [id number] [place] [address] 04 Oct, 2009 [facility] [place] [facility] [address] [id number] [place] [address] 03 Oct, 2009 [facility] [place] [facility] [address] [id number] [place] [address] 30 Sep, 2009 [facility] [address] [id number] [place] [address] 13 Sep, 2009 [facility] [address] [facility] [id number], [place] [address] Sep, [facility] [address] [id number], [place] [address] Sep, [facility] [address] [id number], [place] [address] Sep, [facility] [id number], [place] [address] Jul, [facility] [address] [id number], [place] [address] Apr, [facility] [address] [id number], [place] [address] Dec, IMMUNIZATIONS No Known Immunizations SOCIAL HISTORY [...]
--- OUTSIDE RECORDS SUMMARY | 2019-06-14 11:09 | XMS REPORT ---
Author Author ETELVINA LEONARD Organization [facility] Address [address] [place] [address] Care Team Providers Care Vessel Scrapper Name Role Phone ETELVINA LEONARD Unavailable PROBLEMS Type Condition ICD9-CM Code SJS30-XV Code Onset Dates Condition Status SNOMED Code Problem Acquired hypothyroidism E03.9 Active 662100403 Problem Prediabetes R73.03 Active 346996739 Problem Essential hypertension I10 Active 15502591 Problem Mixed hyperlipidemia E78.2 Active 538804870 Problem Gastroesophageal reflux disease, esophagitis presence not specified K21.9 Active 222130763 Problem Reactive depression F32.9 Active 43282989 Problem Lumbago with sciatica, right side M54.41 Active [id number] Problem Lumbago with sciatica, left side M54.42 Active 287943810 Problem Cigarette nicotine dependence without complication F17.210 Active 03726197 Problem DM neuro manif type II E11.49 Active 33691988 Problem Seizures R56.9 Active 62310736 Problem Adjustment disorder with disturbance of emotion F43.29 Active 48349524 Problem Chronic obstructive pulmonary disease, unspecified COPD type J44.9 Active 04224395 Problem Major depressive disorder, recurrent, moderate F33.1 Active 194247177 Problem Other chronic pain G89.29 Active 17268002 Problem Iron deficiency anemia due to chronic blood loss D50.0 Active 101437735 Problem Seasonal allergies J30.2 Active 395091942 Problem Sinusitis J32.9 Active 13365051 Problem Chronic pain G89.29 Active 28741351 ALLERGIES No Information ENCOUNTERS Encounter Location Date Diagnosis [facility] [address], [place] [address] May, [facility] [address], [place] [address] May, [facility] [address] [place] [id number] [place] [address] May, [place] [address] [address] Apr, [place] [address] [id number] [place] [address] 18 Apr, 2019 Type 2 diabetes mellitus with hyperglycemia E11.65 [place] [address] [address] 17 Apr, 2019 Type 2 diabetes mellitus with hyperglycemia E11.65 [place] [address] [address] 14 Apr, 2019 Major depressive disorder, recurrent, moderate F33.1 and Adjustment disorder with disturbance of emotion F43.29 [place] [address] [address] Apr, [place] [address] [address] Apr, Diarrhea, unspecified type R19.7 [place] [address] [id number] [place] [address] Apr, Low back pain M54.5 ; Other chronic pain G89.29 and Anemia, unspecified type D64.9 [place] [address] [id number] [place] [address] Apr, [place] [address] [address] Apr, Diarrhea, unspecified type R19.7 and Lumbar radiculopathy, chronic M54.16 [facility] [place] [address] [address] March, Non-intractable vomiting with nausea, unspecified vomiting type R11.2 and Muscle cramps R25.2 [place] [address] [id number] [place] [address] March, [place] [address], [place] [address] 17 Mar, 2019 Other chronic pain G89.29 [facility] [id number] [place] [address] March, Type 2 diabetes mellitus with hyperglycemia E11.65 ; Flank pain R10.9 ; Acute cystitis without hematuria N30.00 ; Chronic obstructive pulmonary disease, unspecified COPD type J44.9 and Moderate episode of recurrent major depressive disorder F33.1 [facility] [id number] [place] [address] March, [facility] [id number] [place] [address] March, Wheezing R06.2 and Viral upper respiratory tract infection J06.9 [place] [address] [id number] [place] [address] Feb, [facility] [id number] [place] [address] Feb, [facility] [id number] [place] [address] Jan, [facility] [id number] [place] [address] Jan, Acute cystitis with hematuria N30.01 and Dysuria R30.0 [facility] [id number] [place] [address] Jan, [facility] [id number] [place] [address] Dec, [facility] [id number] [place] [address] Dec, [facility] [id number] [place] [address] Dec, [facility] [id number] [place] [address] Dec, [facility] [address] [id number], [place] [address] Dec, Routine adult health maintenance Z00.00 ; Chronic obstructive pulmonary disease, unspecified COPD type J44.9 and Encounter for immunization Z23 [facility] [address], [place] [address] Nov, [facility] [address] [place] [address] Nov, UTI (urinary tract infection) N39.0 and Other chronic pain G89.29 [facility] [id number] [place] [address] Nov, [facility] [address] [place] [address] Nov, [facility] [address] [place] [address] Nov, Painful urination R30.9 and UTI (urinary tract infection) N39.0 [facility] [address], [place] [address] Nov, [facility] [address], [place] [address] Nov, UTI (urinary tract infection) N39.0 [facility] [address], [place] [address] Nov, Dysuria R30.0 ; UTI (urinary tract infection) N39.0 and Chronic pain G89.29 [facility] [address] [id number], [place] [address] Nov, [facility] [address] [place] [address] Oct, Cough R05 [facility] [address], [place] [address] 14 Oct, 2018 Sinusitis J32.9 [place] [address] [address] [id number] [place] [address] Oct, [place] [address] [address] Oct, UTI (urinary tract infection) N39.0 and URI (upper respiratory infection) J06.9 [place] [address] [place] [id number] [place] [address] Sep, Pain in thoracic spine M54.6 [place] [address] [place] [id number] [place] [address] Sep, Type 2 diabetes mellitus with hyperglycemia E11.65 [place] [address] [place] [id number] [place] [address] Sep, Chronic obstructive pulmonary disease, unspecified COPD type J44.9 ; Abrasion of right ear canal, initial encounter S00.411A ; Cigarette nicotine dependence without complication F17.210 ; Right leg pain M79.604 and Seasonal allergies J30.2 [place] [address] [place] [id number] [place] [address] Aug, [place] [address] [place] [id number] [place] [address] Aug, [place] [address] [place] [id number] [place] [address] Aug, Pain in thoracic spine M54.6 [place] [address] [place] [id number] [place] [address] Aug, [place] [address] [place] [id number] [place] [address] Aug, Chronic obstructive pulmonary disease, unspecified COPD type J44.9 ; Complete amputation of right foot, 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 ; Cigarette nicotine dependence without complication F17.210 and BMI 40.0-44.9, adult Z68.41 [place] [address] [place] [id number] [place] [address] Jul, [place] [address] [place] [id number] [place] [address] Jul, [place] [address] [address] Jul, Onychomycosis B35.1 ; Onychocryptosis L60.0 and DM neuro manif type II E11.49 [place] [address] [address] Jun, Pain in thoracic spine M54.6 [place] [address] [address] Jun, Iron deficiency anemia due to chronic blood loss D50.0 and Hematochezia K92.1 [place] [address] [address] Jun, Gastroenteritis K52.9 and Abnormal RBC indices R71.8 [place] [address] [address] Jun, [place] [address] [address] Jun, Chest congestion R09.89 and Seizures R56.9 [place] [address] [address] May, Pain in thoracic spine M54.6 [place] [address] [place] [id number] [place] [address] May, [place] [address] [id number] [place] [address] May, [place] [address] [address] May, [place] [address] [address] May, Acute non-recurrent frontal sinusitis J01.10 and Dermatitis L30.9 [place] [address], [place] [address] May, [facility] [id number] [place] [address] May, Pain in thoracic spine M54.6 [facility] [address] [place] [address] May, [facility] [id number] [place] [address] May, Acute nasopharyngitis J00 [facility] [id number] [place] [address] May, [facility] [address] [id number] [place] [address] May, [facility] [address] [place] [id number] [place] [address] Apr, [facility] [address] [place] [id number] [place] [address] Apr, [facility] [address] [place] [address] Apr, [facility] [address], [place] [address] Apr, [facility] [address] [place] [address] Apr, Pain in right ankle and joints of right foot M25.571 [facility] [address], [place] [address] Apr, [facility] [address] [id number] [place] [address] Apr, Bronchitis J40 ; Pain in right ankle and joints of right foot M25.571 ; Other chronic pain G89.29 ; Prediabetes R73.03 ; Chronic obstructive pulmonary disease, unspecified COPD type J44.9 and Cigarette nicotine dependence without complication F17.210 [facility] [id number] [place] [address] 13 Apr, 2018 Seasonal allergic rhinitis, unspecified trigger J30.2 [place] [address] [place] [id number] [place] [address] 08 Apr, 2018 Onychomycosis B35.1 ; Onychocryptosis L60.0 and DM neuro manif type II E11.[address] [address] Apr, Reactive depression F32.9 ; Thoracic myofascial strain, initial encounter S29.019A and Leg cramps R25.[address] [address] March, [place] [address] [address] March, Type 2 diabetes mellitus with hyperglycemia E11.65 [place] [address] [address] March, Reactive depression F32.[address] [address] March, Pain in thoracic spine M54.6 and Other chronic pain G89.29 [place] [address] [address] Feb, [place] [address] [address] Jan, Reactive depression F32.9 ; Essential hypertension I10 ; Gastroesophageal reflux disease, esophagitis presence not specified K21.9 ; Lumbago with sciatica, left side M54.42 and Lumbago with sciatica, right side M54.41 [place] [address] [place] [id number] [place] [address] Jan, Reactive depression F32.9 and Pharyngoesophageal dysphagia R13.14 [place] [id number] [address] Jan, [place] [address] [address] Jan, Encounter for immunization Z23 [place] [address] [address] Jan, Onychomycosis B35.1 and DM neuro manif type II E11.49 [place] [address] [address] Jan, [place] [address] [address] Jan, Prediabetes R73.03 [place] [address] [address] Dec, [place] [address] [address] Dec, Essential hypertension I10 ; Mixed hyperlipidemia E78.2 ; Acquired hypothyroidism E03.9 ; Reactive depression F32.9 and Prediabetes R73.03 [place] [address] [address] Dec, [place] [address] [address] Dec, [place] [address] [address] Dec, DM neuro manif type II E11.49 [facility] [address] [address] Dec, Bruise T14.8XXA ; Type 2 diabetes mellitus with hyperglycemia E11.65 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 [place] [address] [place] [id number] [place] [address] Oct, [place] [address] [address] March, Onychomycosis B35.1 and DM neuro manif type II E11.49 [facility] [id number] [place] [address] Jun, [facility] [id number], [place] [address] Jun, [facility] [id number] [place] [address] Jun, COPD with acute exacerbation 491.21 [facility] [address] [id number] [place] [address] Apr, [facility] [id number] [place] [address] Feb, [facility] [address] [id number] [place] [address] Feb, [facility] [id number], [place] [address] Jan, [facility] [address], [place] [address] Jan, [facility] [id number] [address] Jan, [facility] [address], [place] [address] Jan, [facility] [address], [place] [address] Jan, [facility] [address], [place] [address] Jan, [facility] [address], [place] [address] Jan, [facility] [address], [place] [address] Jan, [facility] [address] [place] [id number] [place] [address] 23 Jan, 2014 [facility] [place] [facility] [address] [id number] [place] [address] 19 Jan, 2014 [facility] [place] [facility] [address] [id number] [place] [address] 19 Jan, 2014 [facility] [place] [facility] [address] [id number] [place] [address] 18 Jan, 2014 [facility] [place] [facility] [address] [id number] [place] [address] 18 Jan, 2014 [facility] [place] [facility] [address] [id number] [place] [address] 16 Jan, 2014 [facility] [place] [facility] [address] [id number] [place] [address] 16 Jan, 2014 [facility] [place] [facility] [address] [id number] [place] [address] 16 Jan, 2014 [facility] [place] [facility] [address] [id number] [place] [address] 16 Jan, 2014 [facility] [place] [facility] [address] [id number] [place] [address] 15 Jan, 2014 [facility] [place] [facility] [address] [id number] [place] [address] 13 Jan, 2014 [facility] [place] [facility] [address] [id number] [place] [address] 13 Jan, 2014 [facility] [place] [facility] [address] [id number] [place] [address] 13 Jan, 2014 [facility] [place] [facility] [address] [id number] [place] [address] 13 Jan, 2014 [facility] [place] [facility] [address] [id number] [place] [address] 12 Jan, 2014 [facility] [place] [facility] [address] [id number] [place] [address] Jan, [facility] [place] [facility] [address] [id number] [place] [address] Jan, [facility] [place] [facility] [address] [id number] [place] [address] Dec, [facility] [place] [facility] [address] [id number] [place] [address] Dec, [facility] [place] [facility] [address] [id number] [place] [address] Dec, [facility] [place] [facility] [address] [id number] [place] [address] Dec, [facility] [place] [facility] [address] [id number] [place] [address] Dec, [facility] [place] [facility] [address] [id number] [place] [address] Dec, [facility] [place] [facility] [address] [id number] [place] [address] Dec, [facility] [place] [facility] [address] [id number] [place] [address] Dec, [facility] [place] [facility] [address] [id number] [place] [address] Dec, [facility] [place] [facility] [address] [id number] [place] [address] Dec, [facility] [place] [facility] [address] [id number] [place] [address] Dec, [facility] [place] [facility] [address] [id number] [place] [address] Dec, [facility] [place] [facility] [address] [id number] [place] [address] Nov, [facility] [place] [facility] [address] [id number] [place] [address] Nov, [facility] [place] [facility] [address] [id number] [place] [address] Nov, [facility] [address] [id number] [place] [address] Nov, [facility] [place] [facility] [address] [id number] [place] [address] Nov, [facility] [address] [id number] [place] [address] Nov, [facility] [address] [id number] [place] [address] Nov, [facility] [address] [id number] [place] [address] Nov, [facility] [address] [id number] [place] [address] Nov, [facility] [address] [id number] [place] [address] Nov, [facility] [address] [id number] [place] [address] Nov, [facility] [address] [id number] [place] [address] Nov, [facility] [address] [id number] [place] [address] Oct, [facility] [address] [id number] [place] [address] Oct, [facility] [address] [id number] [place] [address] Oct, [facility] [place] [facility] [address] [id number] [place] [address] Oct, [facility] [place] [facility] [address] [id number] [place] [address] Oct, [facility] [address] [id number] [place] [address] Oct, [facility] [place] [facility] [address] [id number] [place] [address] Oct, [facility] [place] [facility] [address] [id number] [place] [address] Oct, [facility] [place] [facility] [address] [id number] [place] [address] 17 Oct, 2014 [facility] [place] [facility] [address] [id number] [place] [address] 17 Oct, 2014 [facility] [place] [facility] [address] [id number] [place] [address] 16 Oct, 2014 [facility] [place] [facility] [address] [id number] [place] [address] 16 Oct, 2014 [facility] [place] [facility] [address] [id number] [place] [address] 15 Oct, 2014 [facility] [place] [facility] [address] [id number] [place] [address] 15 Oct, 2014 [facility] [place] [facility] [address] [id number] [place] [address] Oct, [facility] [place] [facility] [address] [id number] [place] [address] Sep, [facility] [place] [facility] [address] [id number] [place] [address] Sep, [facility] [place] [facility] [address] [id number] [address] Sep, [facility] [place] [facility] [address] [id number] [place] [address] Sep, [facility] [place] [facility] [address] [id number] [place] [address] Aug, [facility] [place] [facility] [address] [id number] [address] Aug, [facility] [place] [facility] [address] [id number], [place] [address] Aug, [facility] [place] [facility] [address] [id number] [place] [address] Aug, [facility] [place] [facility] [address] [id number] [place] [address] Aug, [facility] [place] [facility] [address] [id number] [place] [address] Aug, [facility] [place] [facility] [address] [id number] [place] [address] 29 Jul, 2014 [facility] [place] [facility] [address] [id number] [place] [address] 29 Jul, 2014 [facility] [place] [facility] [address] [id number] [place] [address] 15 Jul, 2014 [facility] [place] [facility] [address] [id number] [place] [address] 15 Jul, 2014 [facility] [place] [facility] [address] [id number] [place] [address] 08 Jul, 2014 [facility] [place] [facility] [address] [id number] [place] [address] 08 Jul, 2014 [facility] [place] [facility] [address] [id number] [place] [address] Jun, [facility] [place] [facility] [address] [id number] [place] [address] Jun, [facility] [place] [facility] [address] [id number], [place] [address] Jun, [facility] [place] [facility] [address] [id number] [place] [address] Jun, [facility] [place] [facility] [address] [id number] [place] [address] Jun, [facility] [place] [facility] [address] [id number] [place] [address] Jun, [facility] [place] [facility] [address] [id number] [place] [address] Jun, [facility] [place] [facility] [address] [id number] [place] [address] May, [facility] [place] [facility] [address] [id number] [place] [address] May, [facility] [place] [facility] [address] [id number] [place] [address] May, [facility] [place] [facility] [address] [id number] [place] [address] May, [facility] [place] [facility] [address] [id number] [place] [address] May, [facility] [place] [facility] [address] [id number] [place] [address] May, [facility] [place] [facility] [address] [id number] [place] [address] May, [facility] [place] [facility] [address] [id number] [place] [address] May, [facility] [place] [facility] [address] [id number] [place] [address] May, [facility] [place] [facility] [address] [id number] [place] [address] May, [facility] [place] [facility] [address] [id number] [place] [address] May, [facility] [place] [facility] [address] [id number] [place] [address] May, [facility] [place] [facility] [address] [id number] [place] [address] Apr, [facility] [place] [facility] [address] [id number] [place] [address] Apr, [facility] [place] [facility] [address] [id number] [place] [address] Apr, [facility] [place] [facility] [address] [id number] [place] [address] Apr, [facility] [place] [facility] [address] [id number] [place] [address] Apr, [facility] [place] [facility] [address] [id number] [place] [address] Apr, [facility] [place] [facility] [address] [id number] [place] [address] Apr, [facility] [place] [facility] [address] [id number] [place] [address] Apr, [facility] [place] [facility] [address] [id number] [place] [address] Apr, [facility] [place] [facility] [address] [id number] [place] [address] Apr, [facility] [place] [facility] [address] [id number] [place] [address] March, [facility] [place] [facility] [address] [id number] [place] [address] March, [facility] [place] [facility] [address] [id number] [place] [address] March, [facility] [place] [facility] [address] [id number] [place] [address] March, [facility] [place] [facility] [address] [id number] [place] [address] March, [facility] [place] [facility] [address] [id number] [place] [address] March, [facility] [place] [facility] [address] [id number] [place] [address] Feb, [facility] [place] [facility] [address] [id number] [place] [address] Feb, [facility] [place] [facility] [address] [id number] [place] [address] Feb, [facility] [place] [facility] [address] [id number] [place] [address] Feb, [facility] [place] [facility] [address] [id number] [place] [address] Feb, [facility] [place] [facility] [address] [id number] [place] [address] Feb, [facility] [place] [facility] [address] [id number] [place] [address] Feb, [facility] [place] [facility] [address] [id number] [place] [address] Feb, [facility] [place] [facility] [address] [id number] [place] [address] Feb, [facility] [place] [facility] [address] [id number] [place] [address] Feb, [facility] [place] [facility] [address] [id number] [place] [address] Jan, [facility] [place] [facility] [address] [id number] [place] [address] Jan, [facility] [place] [facility] [address] [id number] [place] [address] Jan, [facility] [place] [facility] [address] [id number] [place] [address] Jan, [facility] [place] [facility] [address] [id number] [place] [address] Jan, [facility] [place] [facility] [address] [id number] [place] [address] Jan, [facility] [place] [facility] [address] [id number] [place] [address] Jan, [facility] [place] [facility] [address] [id number] [place] [address] Jan, [facility] [place] [facility] [address] [id number] [place] [address] Dec, [facility] [place] [facility] [address] [id number] [place] [address] Dec, [facility] [place] [facility] [address] [id number] [place] [address] Dec, [facility] [place] [facility] [address] [id number] [place] [address] Dec, [facility] [place] [facility] [address] [id number] [place] [address] Dec, [facility] [place] [facility] [address] [id number] [place] [address] Dec, [facility] [place] [facility] [address] [id number] [place] [address] Dec, [facility] [place] [facility] [address] [id number] [place] [address] Dec, [facility] [place] [facility] [address] [id number] [place] [address] Nov, [facility] [place] [facility] [address] [id number] [place] [address] Nov, [facility] [place] [facility] [address] [id number] [place] [address] Nov, [facility] [place] [facility] [address] [id number] [place] [address] Nov, [facility] [place] [facility] [address] [id number] [place] [address] Nov, [facility] [place] [facility] [address] [id number] [place] [address] Nov, [facility] [place] [facility] [address] [id number] [place] [address] Nov, [facility] [place] [facility] [address] [id number] [place] [address] Nov, [facility] [address] [id number] [place] [address] Nov, [facility] [place] [facility] [address] [id number] [place] [address] Nov, [facility] [address] [id number] [place] [address] Nov, [facility] [place] [facility] [address] [id number] [place] [address] Oct, [facility] [place] [facility] [address] [id number] [place] [address] Oct, [facility] [place] [facility] [address] [id number] [place] [address] Oct, [facility] [address] [facility] [id number] [place] [address] Oct, [facility] [place] [facility] [address] [id number] [place] [address] Sep, [facility] [place] [facility] [address] [id number] [place] [address] Sep, [facility] [place] [facility] [address] [facility] [id number] [place] [address] Sep, [facility] [place] [facility] [address] [id number] [place] [address] Sep, [facility] [place] [facility] [address] [id number], [place] [address] Aug, [facility] [place] [facility] [address] [id number] [place] [address] Aug, [facility] [place] [facility] [address] [facility] [id number] [place] [address] Aug, [facility] [place] [facility] [address] [id number] [place] [address] Aug, [facility] [place] [facility] [address] [id number] [place] [address] Aug, [facility] [place] [facility] [address] [id number] [place] [address] Aug, [facility] [place] [facility] [address] [id number] [place] [address] Aug, [facility] [place] [facility] [address] [id number] [place] [address] Aug, [facility] [address] [id number] [place] [address] 28 Jul, 2013 [facility] [place] [facility] [address] [id number] [place] [address] 27 Jul, 2013 [facility] [address] [id number] [place] [address] 26 Jul, 2012 [facility] [place] [facility] [address] [id number] [place] [address] 24 Jul, 2012 [facility] [place] [facility] [address] [id number] [place] [address] 24 Jul, 2013 [facility] [place] [facility] [address] [id number] [place] [address] 23 Jul, 2013 [facility] [place] [facility] [address] [id number] [place] [address] 19 Jul, 2012 [facility] [place] [facility] [address] [id number], [place] [address] 18 Sep, 2012 [facility] [place] [facility] [address] [id number] [place] [address] 17 Sep, 2012 [facility] [place] [facility] [address] [id number] [place] [address] 16 Sep, 2012 [facility] [place] [facility] [address] [id number] [place] [address] 13 Sep, 2012 [facility] [place] [facility] [address] [id number] [place] [address] Jul, [facility] [place] [facility] [address] [id number] [place] [address] Jul, [facility] [place] [facility] [address] [id number] [place] [address] Jul, [facility] [place] [facility] [address] [id number] [place] [address] Jul, [facility] [place] [facility] [address] [id number] [place] [address] Jun, [facility] [place] [facility] [address] [id number] [place] [address] Jun, [facility] [place] [facility] [address] [id number] [place] [address] Jun, [facility] [place] [facility] [address] [id number] [place] [address] May, [facility] [place] [facility] [address] [id number] [place] [address] May, [facility] [place] [facility] [address] [id number] [place] [address] May, [facility] [place] [facility] [address] [id number] [place] [address] May, [facility] [place] [facility] [address] [id number] [place] [address] Apr, [facility] [place] [facility] [address] [id number] [place] [address] Apr, [facility] [place] [facility] [address] [id number] [place] [address] Apr, [facility] [place] [facility] [address] [id number] [place] [address] Apr, [facility] [place] [facility] [address] [id number] [place] [address] March, [facility] [place] [facility] [address] [id number] [place] [address] March, [facility] [address] [id number] [place] [address] March, [facility] [address] [id number] [place] [address] Feb, [facility] [address] [id number] [place] [address] Feb, [facility] [address] [id number] [place] [address] Jan, [facility] [address] [id number] [place] [address] Jan, [facility] [address] [facility] [id number] [place] [address] Jan, [facility] [address] [id number] [place] [address] Jan, [facility] [address] [id number] [place] [address] Jan, [facility] [address] [id number] [place] [address] Dec, [facility] [address] [facility] [id number] [place] [address] Dec, [facility] [address] [id number] [place] [address] Dec, [facility] [address] [id number] [place] [address] Dec, [facility] [place] [facility] [address] [id number] [place] [address] Dec, [facility] [address] [id number] [place] [address] 06 Dec, 2012 [facility] [address] [id number] [place] [address] 04 Dec, 2012 [facility] [address] [id number] [place] [address] Dec, [facility] [place] [facility] [address] [id number] [place] [address] Nov, [facility] [address] [id number] [place] [address] Nov, [facility] [place] [facility] [address] [id number] [place] [address] Nov, [facility] [address] [id number] [place] [address] Nov, [facility] [address] [id number] [place] [address] Nov, [facility] [address] [id number] [place] [address] Nov, [facility] [address] [id number] [place] [address] Nov, [facility] [address] [id number] [place] [address] Oct, [facility] [address] [id number] [place] [address] Oct, [facility] [address] [id number] [place] [address] Oct, [facility] [place] [facility] [address] [id number] [place] [address] Oct, [facility] [place] [facility] [address] [id number] [place] [address] Oct, [facility] [place] [facility] [address] [id number] [place] [address] Oct, [facility] [place] [facility] [address] [id number] [place] [address] Oct, [facility] [place] [facility] [address] [id number] [place] [address] Oct, [facility] [place] [facility] [address] [id number] [place] [address] Sep, [facility] [place] [facility] [address] [id number] [place] [address] Sep, [facility] [place] [facility] [address] [id number] [place] [address] Sep, [facility] [place] [facility] [address] [id number] [place] [address] Sep, [facility] [place] [facility] [address] [id number] [place] [address] Sep, [facility] [place] [facility] [address] [id number] [place] [address] Sep, [facility] [place] [facility] [address] [id number] [place] [address] Sep, [facility] [place] [facility] [address] [id number] [place] [address] Sep, [facility] [place] [facility] [address] [id number] [place] [address] Sep, [facility] [place] [facility] [address] [id number] [place] [address] Sep, [facility] [place] [facility] [address] [id number] [place] [address] Sep, [facility] [place] [facility] [address] [id number] [place] [address] Sep, [facility] [place] [facility] [address] [id number] [place] [address] Sep, [facility] [place] [facility] [address] [id number] [place] [address] Sep, [facility] [place] [facility] [address] [id number] [place] [address] Sep, [facility] [place] [facility] [address] [id number] [place] [address] Sep, [facility] [place] [facility] [address] [id number] [place] [address] Sep, [facility] [place] [facility] [address] [id number] [place] [address] Sep, [facility] [place] [facility] [address] [id number] [place] [address] Sep, [facility] [place] [facility] [address] [id number] [place] [address] Sep, [facility] [place] [facility] [address] [id number] [place] [address] Aug, [facility] [place] [facility] [address] [id number] [place] [address] Aug, [facility] [place] [facility] [address] [id number], [place] [address] 29 Aug, 2012 [facility] [place] [facility] [address] [id number] [place] [address] Aug, [facility] [place] [facility] [address] [facility] [id number], [place] [address] Aug, [facility] [place] [facility] [address] [facility] [id number], [place] [address] Aug, [facility] [place] [facility] [address] [id number], [place] [address] 18 Aug, 2012 [facility] [place] [facility] [address] [id number], [place] [address] 17 Aug, 2012 [facility] [place] [facility] [address] [facility] [id number], [place] [address] 16 Aug, 2012 [facility] [place] [facility] [address] [facility] [id number], [place] [address] 16 Aug, 2012 [facility] [place] [facility] [address] [id number], [place] [address] Aug, [facility] [place] [facility] [address] [id number] [place] [address] Aug, [facility] [place] [facility] [address] [id number] [place] [address] Aug, [facility] [place] [facility] [address] [id number] [place] [address] Aug, [facility] [place] [facility] [address] [id number] [place] [address] Aug, [facility] [place] [facility] [address] [id number] [place] [address] 14 Jul, 2012 [facility] [place] [facility] [address] [id number] [place] [address] Jul, [facility] [place] [facility] [address] [facility] [id number] [place] [address] Jun, [facility] [place] [facility] [address] [id number] [place] [address] Jun, [facility] [place] [facility] [address] [id number] [place] [address] May, [facility] [place] [facility] [address] [facility] [id number] [place] [address] May, [facility] [place] [facility] [address] [id number] [place] [address] May, [facility] [place] [facility] [address] [id number], [place] [address] May, [facility] [place] [facility] [address] [id number] [place] [address] May, [facility] [place] [facility] [address] [facility] [id number] [place] [address] May, [facility] [place] [facility] [address] [facility] [id number] [place] [address] Apr, [facility] [place] [facility] [address] [id number] [place] [address] 15 Apr, 2012 [facility] [place] [facility] [address] [id number] [place] [address] March, [facility] [place] [facility] [address] [id number] [place] [address] March, [facility] [place] [facility] [address] [id number] [place] [address] March, [facility] [place] [facility] [address] [id number] [place] [address] March, [facility] [place] [facility] [address] [id number] [place] [address] March, [facility] [place] [facility] [address] [id number] [place] [address] March, [facility] [place] [facility] [address] [id number] [place] [address] Feb, [facility] [place] [facility] [address] [id number] [place] [address] Feb, [facility] [place] [facility] [address] [id number] [place] [address] Feb, [facility] [place] [facility] [address] [id number] [place] [address] Feb, [facility] [place] [facility] [address] [id number] [place] [address] Feb, [facility] [place] [facility] [address] [id number] [place] [address] 19 Feb, 2012 [facility] [place] [facility] [address] [id number] [place] [address] Feb, [facility] [place] [facility] [address] [id number] [place] [address] Feb, [facility] [place] [facility] [address] [id number] [place] [address] 04 Feb, 2012 [facility] [place] [facility] [address] [id number] [place] [address] 30 Jan, 2012 [facility] [place] [facility] [address] [id number] [place] [address] 27 Jan, 2012 [facility] [place] [facility] [address] [id number] [place] [address] Jan, [facility] [place] [facility] [address] [id number] [place] [address] 22 Jan, 2012 [facility] [place] [facility] [address] [id number] [place] [address] 21 Jan, 2012 [facility] [place] [facility] [address] [id number] [place] [address] 20 Jan, 2012 [facility] [place] [facility] [address] [id number] [place] [address] 14 Jan, 2012 [facility] [place] [facility] [address] [id number] [place] [address] Jan, [facility] [place] [facility] [address] [id number] [place] [address] Jan, [facility] [place] [facility] [address] [id number] [place] [address] 08 Jan, 2012 [facility] [place] [facility] [address] [id number] [place] [address] 07 Jan, 2012 [facility] [place] [facility] [address] [id number], [place] [address] 06 Jan, 2012 [facility] [place] [facility] [address] [id number] [place] [address] Jan, [facility] [place] [facility] [address] [id number] [place] [address] Jan, [facility] [place] [facility] [address] [id number] [place] [address] Dec, [facility] [place] [facility] [address] [id number] [place] [address] 27 Dec, 2011 [facility] [place] [facility] [address] [id number] [place] [address] Dec, [facility] [place] [facility] [address] [id number] [place] [address] 23 Dec, 2011 [facility] [place] [facility] [address] [id number] [place] [address] 16 Dec, 2011 [facility] [place] [facility] [address] [id number] [place] [address] 08 Dec, 2011 [facility] [place] [facility] [address] [id number] [place] [address] 08 Dec, 2011 [facility] [place] [facility] [address] [facility] [id number] [place] [address] Dec, [facility] [place] [facility] [address] [facility] [id number] [place] [address] 07 Dec, 2011 [facility] [place] [facility] [address] [facility] [id number] [place] [address] Nov, [facility] [place] [facility] [address] [facility] [id number] [place] [address] Nov, [facility] [place] [facility] [address] [facility] [id number] [place] [address] Nov, [facility] [place] [facility] [address] [facility] [id number] [place] [address] Nov, [facility] [place] [facility] [address] [id number] [place] [address] Oct, [facility] [place] [facility] [address] [facility] [id number] [place] [address] Oct, [facility] [place] [facility] [address] [facility] [id number] [place] [address] Oct, [facility] [place] [facility] [address] [facility] [id number] [place] [address] Oct, [facility] [place] [facility] [address] [id number] [place] [address] Oct, [facility] [place] [facility] [address] [id number] [place] [address] Oct, [facility] [place] [facility] [address] [facility] [id number] [place] [address] Oct, [facility] [place] [facility] [address] [id number], [place] [address] Sep, [facility] [place] [facility] [address] [id number] [place] [address] Sep, [facility] [place] [facility] [address] [id number], [place] [address] Sep, [facility] [place] [facility] [address] [id number] [place] [address] Sep, [facility] [place] [facility] [address] [id number], [place] [address] Sep, [facility] [place] [facility] [address] [id number], [place] [address] Sep, [facility] [place] [facility] [address] [id number], [place] [address] Sep, [facility] [place] [facility] [address] [id number], [place] [address] Sep, [facility] [place] [facility] [address] [id number], [place] [address] Sep, [facility] [place] [facility] [address] [id number], [place] [address] Aug, [facility] [place] [facility] [address] [id number], [place] [address] Aug, [facility] [place] [facility] [address] [id number], [place] [address] Aug, [facility] [place] [facility] [address] [id number] [place] [address] May, [facility] [address] [id number] [place] [address] 13 Nov, 2010 [facility] [address] [id number] [place] [address] 31 Oct, 2010 [facility] [address] [id number] [place] [address] 30 Oct, 2010 [facility] [address] [id number] [place] [address] 30 Oct, 2010 [facility] [address] [id number] [place] [address] Oct, [facility] [address] [id number] [place] [address] Oct, [facility] [address] [id number] [place] [address] Sep, [facility] [address] [id number] [place] [address] Sep, [facility] [address] [id number] [place] [address] 14 Jul, 2010 [facility] [address] [facility] [id number] [place] [address] 31 Oct, 2009 [facility] [address] [id number] [place] [address] Oct, [facility] [address] [id number] [place] [address] 04 Oct, 2009 [facility] [place] [facility] [address] [id number] [place] [address] 03 Oct, 2009 [facility] [place] [facility] [address] [id number] [place] [address] 30 Sep, 2009 [facility] [address] [id number] [place] [address] 13 Sep, 2009 [facility] [address] [facility] [id number], [place] [address] Sep, [facility] [address] [id number], [place] [address] Sep, [facility] [address] [id number], [place] [address] Sep, [facility] [id number], [place] [address] Jul, [facility] [address] [id number], [place] [address] Apr, [facility] [address] [id number], [place] [address] Dec, IMMUNIZATIONS No Known Immunizations SOCIAL HISTORY [...]
--- OUTSIDE RECORDS SUMMARY | 2019-06-14 11:10 | XMS REPORT ---
Author Author ETELVINA LEONARD Organization [facility] Address [address] [place] [address] Care Team Providers Care Facilities Operator Name Role Phone ETELVINA LEONARD Unavailable PROBLEMS Type Condition ICD9-CM Code [id number] Code Onset Dates Condition Status SNOMED Code Problem Acquired hypothyroidism E03.9 Active 183094392 Problem Prediabetes R73.03 Active 028025990 Problem Essential hypertension I10 Active 35784945 Problem Mixed hyperlipidemia E78.2 Active 403085774 Problem Gastroesophageal reflux disease, esophagitis presence not specified K21.9 Active 136000593 Problem Reactive depression F32.9 Active 21534528 Problem Lumbago with sciatica, right side M54.41 Active [id number] Problem Lumbago with sciatica, left side M54.42 Active 386142474 Problem Cigarette nicotine dependence without complication F17.210 Active 73959188 Problem DM neuro manif type II E11.49 Active 61965625 Problem Seizures R56.9 Active 27017450 Problem Adjustment disorder with disturbance of emotion F43.29 Active 31984205 Problem Chronic obstructive pulmonary disease, unspecified COPD type J44.9 Active 86640136 Problem Major depressive disorder, recurrent, moderate F33.1 Active 007088627 Problem Other chronic pain G89.29 Active 17702803 Problem Iron deficiency anemia due to chronic blood loss D50.0 Active 997208036 Problem Seasonal allergies J30.2 Active 789107532 Problem Sinusitis J32.9 Active 44448564 Problem Chronic pain G89.29 Active 74680681 ALLERGIES No Information ENCOUNTERS Encounter Location Date Diagnosis [facility] [address] [address] May, [facility] [address] [address] May, [facility] [address] [id number] [place] [address] May, [place] [address] [address] Apr, [place] [address] [id number] [place] [address] 18 Apr, 2019 Type 2 diabetes mellitus with hyperglycemia E11.65 [place] [address] [address] 17 Apr, 2019 Type 2 diabetes mellitus with hyperglycemia E11.65 [place] [address] [address] 14 Apr, 2019 Major depressive disorder, recurrent, moderate F33.1 and Adjustment disorder with disturbance of emotion F43.29 [place] [address] [address] Apr, [place] [address] [address] Apr, Diarrhea, unspecified type R19.7 [place] [address] [id number] [place] [address] Apr, Low back pain M54.5 ; Other chronic pain G89.29 and Anemia, unspecified type D64.9 [place] [address] [id number] [place] [address] Apr, [place] [address] [address] Apr, Diarrhea, unspecified type R19.7 and Lumbar radiculopathy, chronic M54.16 [facility] [place] [address] [address] March, Non-intractable vomiting with nausea, unspecified vomiting type R11.2 and Muscle cramps R25.2 [place] [address] [id number] [place] [address] March, [place] [address] [address] 17 Mar, 2019 Other chronic pain G89.29 [facility] [id number] [place] [address] March, Type 2 diabetes mellitus with hyperglycemia E11.65 ; Flank pain R10.9 ; Acute cystitis without hematuria N30.00 ; Chronic obstructive pulmonary disease, unspecified COPD type J44.9 and Moderate episode of recurrent major depressive disorder F33.1 [facility] [id number] [place] [address] March, [facility] [id number] [place] [address] March, Wheezing R06.2 and Viral upper respiratory tract infection J06.9 [place] [id number] [place] [address] Feb, [facility] [id number] [place] [address] Feb, [facility] [id number] [place] [address] Jan, [facility] [id number] [place] [address] Jan, Acute cystitis with hematuria N30.01 and Dysuria R30.0 [facility] [id number] [place] [address] Jan, [facility] [id number] [place] [address] Dec, [facility] [id number] [place] [address] Dec, [facility] [id number] [place] [address] Dec, [facility] [id number] [place] [address] Dec, [facility] [id number] [address] Dec, Routine adult health maintenance Z00.00 ; Chronic obstructive pulmonary disease, unspecified COPD type J44.9 and Encounter for immunization Z23 [facility] [address] [address] Nov, [facility] [address] [place] [address] Nov, UTI (urinary tract infection) N39.0 and Other chronic pain G89.29 [facility] [id number] [place] [address] Nov, [facility] [address] [place] [address] Nov, [facility] [address] [place] [address] Nov, Painful urination R30.9 and UTI (urinary tract infection) N39.0 [facility] [address] [address] Nov, [facility] [address] [address] Nov, UTI (urinary tract infection) N39.0 [facility] [address] [address] Nov, Dysuria R30.0 ; UTI (urinary tract infection) N39.0 and Chronic pain G89.29 [facility] [id number] [address] Nov, [facility] [address] [place] [address] Oct, Cough R05 [facility] [address] [address] 14 Oct, 2018 Sinusitis J32.9 [place] [id number] [place] [address] Oct, [place] [address] [address] Oct, UTI (urinary tract infection) N39.0 and URI (upper respiratory infection) J06.9 [place] [address] [id number] [place] [address] Sep, Pain in thoracic spine M54.6 [place] [address] [address] [id number] [place] [address] Sep, Type 2 diabetes mellitus with hyperglycemia E11.65 [place] [id number] [place] [address] Sep, Chronic obstructive pulmonary disease, unspecified COPD type J44.9 ; Abrasion of right ear canal, initial encounter S00.411A ; Cigarette nicotine dependence without complication F17.210 ; Right leg pain M79.604 and Seasonal allergies J30.2 [place] [address] [id number] [place] [address] Aug, [place] [address] [place] [address] [id number] [place] [address] Aug, [place] [address] [place] [address] [id number] [place] [address] Aug, Pain in thoracic spine M54.6 [place] [address] [place] [address] [id number] [place] [address] Aug, [place] [address] [place] [address] [id number] [place] [address] Aug, Chronic obstructive pulmonary disease, unspecified COPD type J44.9 ; Complete amputation of right foot, 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 ; Cigarette nicotine dependence without complication F17.210 and BMI 40.0-44.9, adult Z68.41 [place] [address] [place] [id number] [place] [address] Jul, [place] [address] [place] [id number] [place] [address] Jul, [place] [address] [address] Jul, Onychomycosis B35.1 ; Onychocryptosis L60.0 and DM neuro manif type II E11.49 [place] [address] [address] Jun, Pain in thoracic spine M54.6 [place] [address] [address] Jun, Iron deficiency anemia due to chronic blood loss D50.0 and Hematochezia K92.1 [place] [address] [address] Jun, Gastroenteritis K52.9 and Abnormal RBC indices R71.8 [place] [address] [address] Jun, [place] [address] [address] Jun, Chest congestion R09.89 and Seizures R56.9 [place] [address] [address] May, Pain in thoracic spine M54.6 [place] [address] [place] [id number] [place] [address] May, [place] [address] [place] [id number] [place] [address] May, [place] [address] [address] May, [place] [address] [address] May, Acute non-recurrent frontal sinusitis J01.10 and Dermatitis L30.9 [place] [address] [address] May, [facility] [id number] [place] [address] May, Pain in thoracic spine M54.6 [facility] [address] [place] [address] May, [facility] [id number] [place] [address] May, Acute nasopharyngitis J00 [facility] [id number] [place] [address] May, [facility] [id number] [place] [address] May, [facility] [id number] [place] [address] Apr, [facility] [id number] [place] [address] Apr, [facility] [address] [place] [address] Apr, [facility] [address] [address] Apr, [facility] [address] [place] [address] Apr, Pain in right ankle and joints of right foot M25.571 [facility] [address] [address] Apr, [facility] [id number] [place] [address] Apr, Bronchitis J40 ; Pain in right ankle and joints of right foot M25.571 ; Other chronic pain G89.29 ; Prediabetes R73.03 ; Chronic obstructive pulmonary disease, unspecified COPD type J44.9 and Cigarette nicotine dependence without complication F17.210 [facility] [id number] [place] [address] 13 Apr, 2018 Seasonal allergic rhinitis, unspecified trigger J30.2 [place] [address] [place] [id number] [place] [address] 08 Apr, 2018 Onychomycosis B35.1 ; Onychocryptosis L60.0 and DM neuro manif type II E11.[address] [address] Apr, Reactive depression F32.9 ; Thoracic myofascial strain, initial encounter S29.019A and Leg cramps R25.[address] [address] March, [place] [address] [address] March, Type 2 diabetes mellitus with hyperglycemia E11.65 [place] [address] [address] March, Reactive depression F32.[address] [address] March, Pain in thoracic spine M54.6 and Other chronic pain G89.29 [place] [address] [address] Feb, [place] [address] [address] Jan, Reactive depression F32.9 ; Essential hypertension I10 ; Gastroesophageal reflux disease, esophagitis presence not specified K21.9 ; Lumbago with sciatica, left side M54.42 and Lumbago with sciatica, right side M54.41 [place] [address] [place] [address] [id number] [place] [address] Jan, Reactive depression F32.9 and Pharyngoesophageal dysphagia R13.14 [place] [id number] [address] Jan, [place] [address] [address] Jan, Encounter for immunization Z23 [place] [address] [address] Jan, Onychomycosis B35.1 and DM neuro manif type II E11.49 [place] [address] [address] Jan, [place] [address] [address] Jan, Prediabetes R73.03 [place] [address] [address] Dec, [place] [address] [address] Dec, Essential hypertension I10 ; Mixed hyperlipidemia E78.2 ; Acquired hypothyroidism E03.9 ; Reactive depression F32.9 and Prediabetes R73.03 [place] [address] [address] Dec, [place] [address] [address] Dec, [place] [address] [address] Dec, DM neuro manif type II E11.49 [facility] [place] [facility] [address] [address] Dec, Bruise T14.8XXA ; Type 2 diabetes mellitus with hyperglycemia E11.65 and 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 [place] [address] [place] [id number] [place] [address] Oct, [place] [address] [address] March, Onychomycosis B35.1 and DM neuro manif type II E11.49 [facility] [id number] [place] [address] Jun, [facility] [id number] [address] Jun, [facility] [id number] [place] [address] Jun, COPD with acute exacerbation 491.21 [facility] [id number] [place] [address] Apr, [facility] [id number] [place] [address] Feb, [facility] [id number] [place] [address] Feb, [facility] [id number] [address] Jan, [facility] [address] [address] Jan, [facility] [id number] [address] Jan, [facility] [address] [address] Jan, [facility] [address] [address] Jan, [facility] [address] [address] Jan, [facility] [address] [address] Jan, [facility] [address] [address] Jan, [facility] [id number] [place] [address] 23 Jan, 2014 [facility] [place] [facility] [address] [id number] [place] [address] 19 Jan, 2014 [facility] [place] [facility] [address] [id number] [place] [address] 19 Jan, 2014 [facility] [place] [facility] [address] [id number] [place] [address] 18 Jan, 2014 [facility] [place] [facility] [address] [id number] [place] [address] 18 Jan, 2014 [facility] [place] [facility] [address] [id number] [place] [address] 16 Jan, 2014 [facility] [place] [facility] [address] [id number] [place] [address] 16 Jan, 2014 [facility] [place] [facility] [address] [id number] [place] [address] 16 Jan, 2014 [facility] [place] [facility] [address] [id number] [place] [address] 16 Jan, 2014 [facility] [place] [facility] [address] [id number] [place] [address] 15 Jan, 2014 [facility] [place] [facility] [address] [id number] [place] [address] 13 Jan, 2014 [facility] [place] [facility] [address] [id number] [place] [address] 13 Jan, 2014 [facility] [place] [facility] [address] [id number] [place] [address] 13 Jan, 2014 [facility] [place] [facility] [address] [id number] [place] [address] 13 Jan, 2014 [facility] [place] [facility] [address] [id number] [place] [address] 12 Jan, 2014 [facility] [place] [facility] [address] [id number] [place] [address] Jan, [facility] [place] [facility] [address] [id number] [place] [address] Jan, [facility] [place] [facility] [address] [id number] [place] [address] Dec, [facility] [place] [facility] [address] [id number] [place] [address] Dec, [facility] [place] [facility] [address] [id number] [place] [address] Dec, [facility] [place] [facility] [address] [id number] [place] [address] Dec, [facility] [place] [facility] [address] [id number] [place] [address] Dec, [facility] [place] [facility] [address] [id number] [place] [address] Dec, [facility] [place] [facility] [address] [id number] [place] [address] Dec, [facility] [place] [facility] [address] [id number] [place] [address] Dec, [facility] [place] [facility] [address] [id number] [place] [address] Dec, [facility] [place] [facility] [address] [id number] [place] [address] Dec, [facility] [place] [facility] [address] [id number] [place] [address] Dec, [facility] [place] [facility] [address] [id number] [place] [address] Dec, [facility] [place] [facility] [address] [id number] [place] [address] Nov, [facility] [place] [facility] [address] [id number] [place] [address] Nov, [facility] [place] [facility] [address] [id number] [place] [address] Nov, [facility] [address] [id number] [place] [address] Nov, [facility] [place] [facility] [address] [id number] [place] [address] Nov, [facility] [address] [id number] [place] [address] Nov, [facility] [address] [id number] [place] [address] Nov, [facility] [address] [id number] [place] [address] Nov, [facility] [address] [id number] [place] [address] Nov, [facility] [address] [id number] [place] [address] Nov, [facility] [address] [id number] [place] [address] Nov, [facility] [address] [id number] [place] [address] Nov, [facility] [address] [id number] [place] [address] Oct, [facility] [address] [id number] [place] [address] Oct, [facility] [address] [id number] [place] [address] Oct, [facility] [place] [facility] [address] [id number] [place] [address] Oct, [facility] [place] [facility] [address] [id number] [place] [address] Oct, [facility] [address] [id number] [place] [address] Oct, [facility] [place] [facility] [address] [id number] [place] [address] Oct, [facility] [place] [facility] [address] [id number] [place] [address] Oct, [facility] [place] [facility] [address] [id number] [place] [address] 17 Oct, 2014 [facility] [place] [facility] [address] [id number] [place] [address] 17 Oct, 2014 [facility] [place] [facility] [address] [id number] [place] [address] 16 Oct, 2014 [facility] [place] [facility] [address] [id number] [place] [address] 16 Oct, 2014 [facility] [place] [facility] [address] [id number] [place] [address] 15 Oct, 2014 [facility] [place] [facility] [address] [id number] [place] [address] 15 Oct, 2014 [facility] [place] [facility] [address] [id number] [place] [address] Oct, [facility] [place] [facility] [address] [id number] [place] [address] Sep, [facility] [place] [facility] [address] [id number] [place] [address] Sep, [facility] [place] [facility] [address] [id number] [address] Sep, [facility] [place] [facility] [address] [id number] [place] [address] Sep, [facility] [place] [facility] [address] [id number] [place] [address] Aug, [facility] [place] [facility] [address] [id number] [address] Aug, [facility] [place] [facility] [address] [id number] [place] [address] Aug, [facility] [place] [facility] [address] [id number] [place] [address] Aug, [facility] [place] [facility] [address] [id number] [place] [address] Aug, [facility] [place] [facility] [address] [id number] [place] [address] Aug, [facility] [place] [facility] [address] [id number] [place] [address] 29 Jul, 2014 [facility] [place] [facility] [address] [id number] [place] [address] 29 Jul, 2014 [facility] [place] [facility] [address] [id number] [place] [address] 15 Jul, 2014 [facility] [place] [facility] [address] [id number] [place] [address] 15 Jul, 2014 [facility] [place] [facility] [address] [id number] [place] [address] 08 Jul, 2014 [facility] [place] [facility] [address] [id number] [place] [address] 08 Jul, 2014 [facility] [place] [facility] [address] [id number] [place] [address] Jun, [facility] [place] [facility] [address] [id number] [place] [address] Jun, [facility] [place] [facility] [address] [id number] [place] [address] Jun, [facility] [place] [facility] [address] [id number] [place] [address] Jun, [facility] [place] [facility] [address] [id number] [place] [address] Jun, [facility] [place] [facility] [address] [id number] [place] [address] Jun, [facility] [place] [facility] [address] [id number] [place] [address] Jun, [facility] [place] [facility] [address] [id number] [place] [address] May, [facility] [place] [facility] [address] [id number] [place] [address] May, [facility] [place] [facility] [address] [id number] [place] [address] May, [facility] [place] [facility] [address] [id number] [place] [address] May, [facility] [place] [facility] [address] [id number] [place] [address] May, [facility] [place] [facility] [address] [id number] [place] [address] May, [facility] [place] [facility] [address] [id number] [place] [address] May, [facility] [place] [facility] [address] [id number] [place] [address] May, [facility] [place] [facility] [address] [id number] [place] [address] May, [facility] [place] [facility] [address] [id number] [place] [address] May, [facility] [place] [facility] [address] [id number] [place] [address] May, [facility] [place] [facility] [address] [id number] [place] [address] May, [facility] [place] [facility] [address] [id number] [place] [address] Apr, [facility] [place] [facility] [address] [id number] [place] [address] Apr, [facility] [place] [facility] [address] [id number] [place] [address] Apr, [facility] [place] [facility] [address] [id number] [place] [address] Apr, [facility] [place] [facility] [address] [id number] [place] [address] Apr, [facility] [place] [facility] [address] [id number] [place] [address] Apr, [facility] [place] [facility] [address] [id number] [place] [address] Apr, [facility] [place] [facility] [address] [id number] [place] [address] Apr, [facility] [place] [facility] [address] [id number] [place] [address] Apr, [facility] [place] [facility] [address] [id number] [place] [address] Apr, [facility] [place] [facility] [address] [id number] [place] [address] March, [facility] [place] [facility] [address] [id number] [place] [address] March, [facility] [place] [facility] [address] [id number] [place] [address] March, [facility] [place] [facility] [address] [id number] [place] [address] March, [facility] [place] [facility] [address] [id number] [place] [address] March, [facility] [place] [facility] [address] [id number] [place] [address] March, [facility] [place] [facility] [address] [id number] [place] [address] Feb, [facility] [place] [facility] [address] [id number] [place] [address] Feb, [facility] [place] [facility] [address] [id number] [place] [address] Feb, [facility] [place] [facility] [address] [id number] [place] [address] Feb, [facility] [place] [facility] [address] [id number] [place] [address] Feb, [facility] [place] [facility] [address] [id number] [place] [address] Feb, [facility] [place] [facility] [address] [id number] [place] [address] Feb, [facility] [place] [facility] [address] [id number] [place] [address] Feb, [facility] [place] [facility] [address] [id number] [place] [address] Feb, [facility] [place] [facility] [address] [id number] [place] [address] Feb, [facility] [place] [facility] [address] [id number] [place] [address] Jan, [facility] [place] [facility] [address] [id number] [place] [address] Jan, [facility] [place] [facility] [address] [id number] [place] [address] Jan, [facility] [place] [facility] [address] [id number] [place] [address] Jan, [facility] [place] [facility] [address] [id number] [place] [address] Jan, [facility] [place] [facility] [address] [id number] [place] [address] Jan, [facility] [place] [facility] [address] [id number] [place] [address] Jan, [facility] [place] [facility] [address] [id number] [place] [address] Jan, [facility] [place] [facility] [address] [id number] [place] [address] Dec, [facility] [place] [facility] [address] [id number] [place] [address] Dec, [facility] [place] [facility] [address] [id number] [place] [address] Dec, [facility] [place] [facility] [address] [id number] [place] [address] Dec, [facility] [place] [facility] [address] [id number] [place] [address] Dec, [facility] [place] [facility] [address] [id number] [place] [address] Dec, [facility] [place] [facility] [address] [id number] [place] [address] Dec, [facility] [place] [facility] [address] [id number] [place] [address] Dec, [facility] [place] [facility] [address] [id number] [place] [address] Nov, [facility] [place] [facility] [address] [id number] [place] [address] Nov, [facility] [place] [facility] [address] [id number] [place] [address] Nov, [facility] [place] [facility] [address] [id number] [place] [address] Nov, [facility] [place] [facility] [address] [id number] [place] [address] Nov, [facility] [place] [facility] [address] [id number] [place] [address] Nov, [facility] [place] [facility] [address] [id number] [place] [address] Nov, [facility] [place] [facility] [address] [id number] [place] [address] Nov, [facility] [address] [id number] [place] [address] Nov, [facility] [place] [facility] [address] [id number] [place] [address] Nov, [facility] [address] [id number] [place] [address] Nov, [facility] [place] [facility] [address] [id number] [place] [address] Oct, [facility] [place] [facility] [address] [id number] [place] [address] Oct, [facility] [place] [facility] [address] [id number] [place] [address] Oct, [facility] [address] [facility] [id number] [place] [address] Oct, [facility] [place] [facility] [address] [id number] [place] [address] Sep, [facility] [place] [facility] [address] [id number] [place] [address] Sep, [facility] [place] [facility] [address] [facility] [id number] [place] [address] Sep, [facility] [place] [facility] [address] [id number] [place] [address] Sep, [facility] [place] [facility] [address] [id number] [address] Aug, [facility] [place] [facility] [address] [id number] [place] [address] Aug, [facility] [place] [facility] [address] [facility] [id number] [place] [address] Aug, [facility] [place] [facility] [address] [id number] [place] [address] Aug, [facility] [place] [facility] [address] [id number] [place] [address] Aug, [facility] [place] [facility] [address] [id number] [place] [address] Aug, [facility] [place] [facility] [address] [id number] [place] [address] Aug, [facility] [place] [facility] [address] [id number] [place] [address] Aug, [facility] [address] [id number] [place] [address] 28 Jul, 2013 [facility] [place] [facility] [address] [id number] [place] [address] 27 Jul, 2013 [facility] [address] [id number] [place] [address] 26 Jul, 2012 [facility] [place] [facility] [address] [id number] [place] [address] 24 Jul, 2012 [facility] [place] [facility] [address] [id number] [place] [address] 24 Jul, 2013 [facility] [place] [facility] [address] [id number] [place] [address] 23 Jul, 2013 [facility] [place] [facility] [address] [id number] [place] [address] 19 Jul, 2012 [facility] [place] [facility] [address] [id number] [address] 18 Sep, 2012 [facility] [place] [facility] [address] [id number] [place] [address] 17 Sep, 2012 [facility] [place] [facility] [address] [id number] [place] [address] 16 Sep, 2012 [facility] [place] [facility] [address] [id number] [place] [address] 13 Sep, 2012 [facility] [place] [facility] [address] [id number] [place] [address] Jul, [facility] [place] [facility] [address] [id number] [place] [address] Jul, [facility] [place] [facility] [address] [id number] [place] [address] Jul, [facility] [place] [facility] [address] [id number] [place] [address] Jul, [facility] [place] [facility] [address] [id number] [place] [address] Jun, [facility] [place] [facility] [address] [id number] [place] [address] Jun, [facility] [place] [facility] [address] [id number] [place] [address] Jun, [facility] [place] [facility] [address] [id number] [place] [address] May, [facility] [place] [facility] [address] [id number] [place] [address] May, [facility] [place] [facility] [address] [id number] [place] [address] May, [facility] [place] [facility] [address] [id number] [place] [address] May, [facility] [place] [facility] [address] [id number] [place] [address] Apr, [facility] [place] [facility] [address] [id number] [place] [address] Apr, [facility] [place] [facility] [address] [id number] [place] [address] Apr, [facility] [place] [facility] [address] [id number] [place] [address] Apr, [facility] [place] [facility] [address] [id number] [place] [address] March, [facility] [place] [facility] [address] [id number] [place] [address] March, [facility] [address] [id number] [place] [address] March, [facility] [address] [id number] [place] [address] Feb, [facility] [address] [id number] [place] [address] Feb, [facility] [address] [id number] [place] [address] Jan, [facility] [address] [id number] [place] [address] Jan, [facility] [address] [facility] [id number] [place] [address] Jan, [facility] [address] [id number] [place] [address] Jan, [facility] [address] [id number] [place] [address] Jan, [facility] [address] [id number] [place] [address] Dec, [facility] [address] [facility] [id number] [place] [address] Dec, [facility] [address] [id number] [place] [address] Dec, [facility] [address] [id number] [place] [address] Dec, [facility] [place] [facility] [address] [id number] [place] [address] Dec, [facility] [address] [id number] [place] [address] 06 Dec, 2012 [facility] [address] [id number] [place] [address] 04 Dec, 2012 [facility] [address] [id number] [place] [address] Dec, [facility] [place] [facility] [address] [id number] [place] [address] Nov, [facility] [address] [id number] [place] [address] Nov, [facility] [place] [facility] [address] [id number] [place] [address] Nov, [facility] [address] [id number] [place] [address] Nov, [facility] [address] [id number] [place] [address] Nov, [facility] [address] [id number] [place] [address] Nov, [facility] [address] [id number] [place] [address] Nov, [facility] [address] [id number] [place] [address] Oct, [facility] [address] [id number] [place] [address] Oct, [facility] [address] [id number] [place] [address] Oct, [facility] [place] [facility] [address] [id number] [place] [address] Oct, [facility] [place] [facility] [address] [id number] [place] [address] Oct, [facility] [place] [facility] [address] [id number] [place] [address] Oct, [facility] [place] [facility] [address] [id number] [place] [address] Oct, [facility] [place] [facility] [address] [id number] [place] [address] Oct, [facility] [place] [facility] [address] [id number] [place] [address] Sep, [facility] [place] [facility] [address] [id number] [place] [address] Sep, [facility] [place] [facility] [address] [id number] [place] [address] Sep, [facility] [place] [facility] [address] [id number] [place] [address] Sep, [facility] [place] [facility] [address] [id number] [place] [address] Sep, [facility] [place] [facility] [address] [id number] [place] [address] Sep, [facility] [place] [facility] [address] [id number] [place] [address] Sep, [facility] [place] [facility] [address] [id number] [place] [address] Sep, [facility] [place] [facility] [address] [id number] [place] [address] Sep, [facility] [place] [facility] [address] [id number] [place] [address] Sep, [facility] [place] [facility] [address] [id number] [place] [address] Sep, [facility] [place] [facility] [address] [id number] [place] [address] Sep, [facility] [place] [facility] [address] [id number] [place] [address] Sep, [facility] [place] [facility] [address] [id number] [place] [address] Sep, [facility] [place] [facility] [address] [id number] [place] [address] Sep, [facility] [place] [facility] [address] [id number] [place] [address] Sep, [facility] [place] [facility] [address] [id number] [place] [address] Sep, [facility] [place] [facility] [address] [id number] [place] [address] Sep, [facility] [place] [facility] [address] [id number] [place] [address] Sep, [facility] [place] [facility] [address] [id number] [place] [address] Sep, [facility] [place] [facility] [address] [id number] [place] [address] Aug, [facility] [place] [facility] [address] [id number] [place] [address] Aug, [facility] [place] [facility] [address] [id number] [address] 29 Aug, 2012 [facility] [place] [facility] [address] [id number] [place] [address] Aug, [facility] [place] [facility] [address] [facility] [id number] [place] [address] Aug, [facility] [place] [facility] [address] [facility] [id number] [place] [address] Aug, [facility] [place] [facility] [address] [id number] [place] [address] 18 Aug, 2012 [facility] [place] [facility] [address] [id number] [place] [address] 17 Aug, 2012 [facility] [place] [facility] [address] [facility] [id number] [place] [address] 16 Aug, 2012 [facility] [place] [facility] [address] [facility] [id number] [place] [address] 16 Aug, 2012 [facility] [place] [facility] [address] [id number] [place] [address] Aug, [facility] [place] [facility] [address] [id number] [place] [address] Aug, [facility] [place] [facility] [address] [id number] [place] [address] Aug, [facility] [place] [facility] [address] [id number] [place] [address] Aug, [facility] [place] [facility] [address] [id number] [place] [address] Aug, [facility] [place] [facility] [address] [id number] [place] [address] 14 Jul, 2012 [facility] [place] [facility] [address] [id number] [place] [address] Jul, [facility] [place] [facility] [address] [facility] [id number] [place] [address] Jun, [facility] [place] [facility] [address] [id number] [place] [address] Jun, [facility] [place] [facility] [address] [id number] [place] [address] May, [facility] [place] [facility] [address] [facility] [id number] [place] [address] May, [facility] [place] [facility] [address] [id number] [place] [address] May, [facility] [place] [facility] [address] [id number] [place] [address] May, [facility] [place] [facility] [address] [id number] [place] [address] May, [facility] [place] [facility] [address] [facility] [id number] [place] [address] May, [facility] [place] [facility] [address] [facility] [id number] [place] [address] Apr, [facility] [place] [facility] [address] [id number] [place] [address] 15 Apr, 2012 [facility] [place] [facility] [address] [id number] [place] [address] March, [facility] [place] [facility] [address] [id number] [place] [address] March, [facility] [place] [facility] [address] [id number] [place] [address] March, [facility] [place] [facility] [address] [id number] [place] [address] March, [facility] [place] [facility] [address] [id number] [place] [address] March, [facility] [place] [facility] [address] [id number] [place] [address] March, [facility] [place] [facility] [address] [id number] [place] [address] Feb, [facility] [place] [facility] [address] [id number] [place] [address] Feb, [facility] [place] [facility] [address] [id number] [place] [address] Feb, [facility] [place] [facility] [address] [id number] [place] [address] Feb, [facility] [place] [facility] [address] [id number] [place] [address] Feb, [facility] [place] [facility] [address] [id number] [place] [address] 19 Feb, 2012 [facility] [place] [facility] [address] [id number] [place] [address] Feb, [facility] [place] [facility] [address] [id number] [place] [address] Feb, [facility] [place] [facility] [address] [id number] [place] [address] 04 Feb, 2012 [facility] [place] [facility] [address] [id number] [place] [address] 30 Jan, 2012 [facility] [place] [facility] [address] [id number] [place] [address] 27 Jan, 2012 [facility] [place] [facility] [address] [id number] [place] [address] Jan, [facility] [place] [facility] [address] [id number] [place] [address] 22 Jan, 2012 [facility] [place] [facility] [address] [id number] [place] [address] 21 Jan, 2012 [facility] [place] [facility] [address] [id number] [place] [address] 20 Jan, 2012 [facility] [place] [facility] [address] [id number] [place] [address] 14 Jan, 2012 [facility] [place] [facility] [address] [id number] [place] [address] Jan, [facility] [place] [facility] [address] [id number] [place] [address] Jan, [facility] [place] [facility] [address] [id number] [place] [address] 08 Jan, 2012 [facility] [place] [facility] [address] [id number] [place] [address] 07 Jan, 2012 [facility] [place] [facility] [address] [id number] [address] 06 Jan, 2012 [facility] [place] [facility] [address] [id number] [place] [address] Jan, [facility] [place] [facility] [address] [id number] [place] [address] Jan, [facility] [place] [facility] [address] [id number] [place] [address] Dec, [facility] [place] [facility] [address] [id number] [place] [address] 27 Dec, 2011 [facility] [place] [facility] [address] [id number] [place] [address] Dec, [facility] [place] [facility] [address] [id number] [place] [address] 23 Dec, 2011 [facility] [place] [facility] [address] [id number] [place] [address] 16 Dec, 2011 [facility] [place] [facility] [address] [id number] [place] [address] 08 Dec, 2011 [facility] [place] [facility] [address] [id number] [place] [address] 08 Dec, 2011 [facility] [place] [facility] [address] [facility] [id number] [place] [address] Dec, [facility] [place] [facility] [address] [facility] [id number] [place] [address] 07 Dec, 2011 [facility] [place] [facility] [address] [facility] [id number] [place] [address] Nov, [facility] [place] [facility] [address] [facility] [id number] [place] [address] Nov, [facility] [place] [facility] [address] [facility] [id number] [place] [address] Nov, [facility] [place] [facility] [address] [facility] [id number] [place] [address] Nov, [facility] [place] [facility] [address] [id number] [place] [address] Oct, [facility] [place] [facility] [address] [facility] [id number] [place] [address] Oct, [facility] [place] [facility] [address] [facility] [id number] [place] [address] Oct, [facility] [place] [facility] [address] [facility] [id number] [place] [address] Oct, [facility] [place] [facility] [address] [id number] [place] [address] Oct, [facility] [place] [facility] [address] [id number] [place] [address] Oct, [facility] [place] [facility] [address] [facility] [id number] [place] [address] Oct, [facility] [place] [facility] [address] [id number] [place] [address] Sep, [facility] [place] [facility] [address] [id number] [place] [address] Sep, [facility] [place] [facility] [address] [id number] [place] [address] Sep, [facility] [place] [facility] [address] [id number] [place] [address] Sep, [facility] [place] [facility] [address] [id number] [place] [address] Sep, [facility] [place] [facility] [address] [id number] [place] [address] Sep, [facility] [place] [facility] [address] [id number] [place] [address] Sep, [facility] [place] [facility] [address] [id number] [place] [address] Sep, [facility] [place] [facility] [address] [id number] [place] [address] Sep, [facility] [place] [facility] [address] [id number] [place] [address] Aug, [facility] [place] [facility] [address] [id number] [place] [address] Aug, [facility] [place] [facility] [address] [id number] [place] [address] Aug, [facility] [place] [facility] [address] [id number] [place] [address] May, [facility] [address] [id number] [place] [address] 13 Nov, 2010 [facility] [address] [id number] [place] [address] 31 Oct, 2010 [facility] [address] [id number] [place] [address] 30 Oct, 2010 [facility] [address] [id number] [place] [address] 30 Oct, 2010 [facility] [address] [id number] [place] [address] Oct, [facility] [address] [id number] [place] [address] Oct, [facility] [address] [id number] [place] [address] Sep, [facility] [address] [id number] [place] [address] Sep, [facility] [address] [id number] [place] [address] 14 Jul, 2010 [facility] [address] [facility] [id number] [place] [address] 31 Oct, 2009 [facility] [address] [id number] [place] [address] Oct, [facility] [address] [id number] [place] [address] 04 Oct, 2009 [facility] [place] [facility] [address] [id number] [place] [address] 03 Oct, 2009 [facility] [place] [facility] [address] [id number] [place] [address] 30 Sep, 2009 [facility] [address] [id number] [place] [address] 13 Sep, 2009 [facility] [address] [facility] [id number] [place] [address] Sep, [facility] [address] [id number] [address] Sep, [facility] [address] [id number] [address] Sep, [facility] [id number] [address] Jul, [facility] [address] [id number] [id number] Apr, [facility] [id number] [address] Dec, IMMUNIZATIONS No Known Immunizations SOCIAL HISTORY [...]
[2019-06-14 11:11] LABS: BASOPHILS # (AUTO) 0.1 10^3/uL (0.0-0.1); BASOPHILS % (AUTO) 0 % (0-10); EOSINOPHILS # (AUTO) 0.2 10^3/uL (0.0-0.3); EOSINOPHILS % (AUTO) 1 % (0-10); HEMATOCRIT 32 % (35-52); HEMOGLOBIN 8.7 G/DL (11.5-16.0); LYMPHOCYTES # (AUTO) 1.5 X 10^3 (1.0-4.0); LYMPHOCYTES % (AUTO) 6 % (12-44); MEAN CORPUSCULAR HEMOGLOBIN 19 PG (25-34); MEAN CORPUSCULAR HGB CONC 27 G/DL (32-36); MEAN CORPUSCULAR VOLUME 71 FL (80-99); MEAN PLATELET VOLUME 11.1 FL (7.4-10.4); MONOCYTES # (AUTO) 1.5 X 10^3 (0.0-1.0); MONOCYTES % (AUTO) 6 % (0-12); NEUTROPHILS % (AUTO) 88 % (42-75); PLATELET COUNT 358 10^3/uL (130-400); RED CELL DISTRIBUTION WIDTH 18.9 % (10.0-14.5); WHITE BLOOD COUNT 26.2 10^3/uL (4.3-11.0)
--- OUTSIDE RECORDS SUMMARY | 2019-06-14 11:11 | XMS REPORT ---
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 Name Role Phone ETELVINA LEONARD Unavailable PROBLEMS Type Condition ICD9-CM Code DMO17-QU Code Onset Dates Condition Status SNOMED Code Problem Acquired hypothyroidism E03.9 Active 616427163 Problem Prediabetes R73.03 Active 776963325 Problem Essential hypertension I10 Active 63327248 Problem Mixed hyperlipidemia E78.2 Active 372229986 Problem Gastroesophageal reflux disease, esophagitis presence not specified K21.9 Active 909688358 Problem Reactive depression F32.9 Active 94350689 Problem Lumbago with sciatica, right side M54.41 Active [id number] Problem Lumbago with sciatica, left side M54.42 Active 632819250 Problem Cigarette nicotine dependence without complication F17.210 Active 10507542 Problem DM neuro manif type II E11.49 Active 35036434 Problem Seizures R56.9 Active 43978823 Problem Adjustment disorder with disturbance of emotion F43.29 Active 58077727 Problem Chronic obstructive pulmonary disease, unspecified COPD type J44.9 Active 63193163 Problem Major depressive disorder, recurrent, moderate F33.1 Active 944123354 Problem Other chronic pain G89.29 Active 38451221 Problem Iron deficiency anemia due to chronic blood loss D50.0 Active 634578745 Problem Seasonal allergies J30.2 Active 993933416 Problem Sinusitis J32.9 Active 38274179 Problem Chronic pain G89.29 Active 39598940 ALLERGIES No Information ENCOUNTERS Encounter Location Date Diagnosis [facility] [address], [place] [address] May, [facility] [address], [place] [address] May, [facility] [id number] [place] [address] May, [place] [address] [address] Apr, [place] [id number] [place] [address] 18 Apr, 2019 Type 2 diabetes mellitus with hyperglycemia E11.65 [place] [address] [address] 17 Apr, 2019 Type 2 diabetes mellitus with hyperglycemia E11.65 [place] [address] [address] 14 Apr, 2019 Major depressive disorder, recurrent, moderate F33.1 and Adjustment disorder with disturbance of emotion F43.29 [place] [address] [address] Apr, [place] [address] [address] Apr, Diarrhea, unspecified type R19.7 [place] [id number] [place] [address] Apr, Low back pain M54.5 ; Other chronic pain G89.29 and Anemia, unspecified type D64.9 [place] [id number] [place] [address] Apr, [place] [address] [address] Apr, Diarrhea, unspecified type R19.7 and Lumbar radiculopathy, chronic M54.16 [facility] [place] [address] [address] March, Non-intractable vomiting with nausea, unspecified vomiting type R11.2 and Muscle cramps R25.2 [place] [id number] [place] [address] March, [place] [address], [place] [address] 17 Mar, 2019 Other chronic pain G89.29 [facility] [id number] [place] [address] March, Type 2 diabetes mellitus with hyperglycemia E11.65 ; Flank pain R10.9 ; Acute cystitis without hematuria N30.00 ; Chronic obstructive pulmonary disease, unspecified COPD type J44.9 and Moderate episode of recurrent major depressive disorder F33.1 [facility] [id number] [place] [address] March, [facility] [id number] [place] [address] March, Wheezing R06.2 and Viral upper respiratory tract infection J06.9 [place] [id number] [place] [address] Feb, [facility] [id number] [place] [address] Feb, [facility] [id number] [place] [address] Jan, [facility] [id number] [place] [address] Jan, Acute cystitis with hematuria N30.01 and Dysuria R30.0 [facility] [id number] [place] [address] Jan, [facility] [id number] [place] [address] Dec, [facility] [id number] [place] [address] Dec, [facility] [id number] [place] [address] Dec, [facility] [id number] [place] [address] Dec, [facility] [id number], [place] [address] Dec, Routine adult health maintenance Z00.00 ; Chronic obstructive pulmonary disease, unspecified COPD type J44.9 and Encounter for immunization Z23 [facility] [address], [place] [address] Nov, [facility] [address] [place] [address] Nov, UTI (urinary tract infection) N39.0 and Other chronic pain G89.29 [facility] [id number] [place] [address] Nov, [facility] [address] [place] [address] Nov, [facility] [address] [place] [address] Nov, Painful urination R30.9 and UTI (urinary tract infection) N39.0 [facility] [address], [place] [address] Nov, [facility] [address], [place] [address] Nov, UTI (urinary tract infection) N39.0 [facility] [address], [place] [address] Nov, Dysuria R30.0 ; UTI (urinary tract infection) N39.0 and Chronic pain G89.29 [facility] [id number] [address] Nov, [facility] [address] [place] [address] Oct, Cough R05 [facility] [address], [place] [address] 14 Oct, 2018 Sinusitis J32.9 [place] [id number] [place] [address] Oct, [place] [address] [address] Oct, UTI (urinary tract infection) N39.0 and URI (upper respiratory infection) J06.9 [place] [id number] [place] [address] Sep, Pain in thoracic spine M54.6 [place] [id number] [place] [address] Sep, Type 2 diabetes mellitus with hyperglycemia E11.65 [place] [id number] [place] [address] Sep, Chronic obstructive pulmonary disease, unspecified COPD type J44.9 ; Abrasion of right ear canal, initial encounter S00.411A ; Cigarette nicotine dependence without complication F17.210 ; Right leg pain M79.604 and Seasonal allergies J30.2 [place] [id number] [place] [address] Aug, [place] [address] [id number] [place] [address] Aug, [place] [address] [id number] [place] [address] Aug, Pain in thoracic spine M54.6 [place] [id number] [place] [address] Aug, [place] [address] [place] [id number] [place] [address] Aug, Chronic obstructive pulmonary disease, unspecified COPD type J44.9 ; Complete amputation of right foot, 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 ; Cigarette nicotine dependence without complication F17.210 and BMI 40.0-44.9, adult Z68.41 [place] [id number] [place] [address] Jul, [place] [address] [id number] [place] [address] Jul, [place] [address] [address] Jul, Onychomycosis B35.1 ; Onychocryptosis L60.0 and DM neuro manif type II E11.49 [place] [address] [address] Jun, Pain in thoracic spine M54.6 [place] [address] [address] Jun, Iron deficiency anemia due to chronic blood loss D50.0 and Hematochezia K92.1 [place] [address] [address] Jun, Gastroenteritis K52.9 and Abnormal RBC indices R71.8 [place] [address] [address] Jun, [place] [address] [address] Jun, Chest congestion R09.89 and Seizures R56.9 [place] [address] [address] May, Pain in thoracic spine M54.6 [place] [address] [id number] [place] [address] May, [place] [address] [place] [id number] [place] [address] May, [place] [address] [address] May, [place] [address] [address] May, Acute non-recurrent frontal sinusitis J01.10 and Dermatitis L30.9 [place] [address], [place] [address] May, [facility] [id number] [place] [address] May, Pain in thoracic spine M54.6 [facility] [address] [place] [address] May, [facility] [id number] [place] [address] May, Acute nasopharyngitis J00 [facility] [id number] [place] [address] May, [facility] [id number] [place] [address] May, [facility] [id number] [place] [address] Apr, [facility] [id number] [place] [address] Apr, [facility] [address] [place] [address] Apr, [facility] [address], [place] [address] Apr, [facility] [address] [place] [address] Apr, Pain in right ankle and joints of right foot M25.571 [facility] [address], [place] [address] Apr, [facility] [address] [id number] [place] [address] Apr, Bronchitis J40 ; Pain in right ankle and joints of right foot M25.571 ; Other chronic pain G89.29 ; Prediabetes R73.03 ; Chronic obstructive pulmonary disease, unspecified COPD type J44.9 and Cigarette nicotine dependence without complication F17.210 [facility] [id number] [place] [address] 13 Apr, 2018 Seasonal allergic rhinitis, unspecified trigger J30.2 [place] [address] [id number] [place] [address] 08 Apr, 2018 Onychomycosis B35.1 ; Onychocryptosis L60.0 and DM neuro manif type II E11.[address] [address] Apr, Reactive depression F32.9 ; Thoracic myofascial strain, initial encounter S29.019A and Leg cramps R25.[address] [address] March, [place] [address] [address] March, Type 2 diabetes mellitus with hyperglycemia E11.65 [place] [address] [address] March, Reactive depression F32.[address] [address] March, Pain in thoracic spine M54.6 and Other chronic pain G89.29 [place] [address] [address] Feb, [place] [address] [address] Jan, Reactive depression F32.9 ; Essential hypertension I10 ; Gastroesophageal reflux disease, esophagitis presence not specified K21.9 ; Lumbago with sciatica, left side M54.42 and Lumbago with sciatica, right side M54.41 [place] [id number] [place] [address] Jan, Reactive depression F32.9 and Pharyngoesophageal dysphagia R13.14 [place] [id number] [address] Jan, [place] [address] [address] Jan, Encounter for immunization Z23 [place] [address] [address] Jan, Onychomycosis B35.1 and DM neuro manif type II E11.49 [place] [address] [address] Jan, [place] [address] [address] Jan, Prediabetes R73.03 [place] [address] [address] Dec, [place] [address] [address] Dec, Essential hypertension I10 ; Mixed hyperlipidemia E78.2 ; Acquired hypothyroidism E03.9 ; Reactive depression F32.9 and Prediabetes R73.03 [place] [address] [address] Dec, [place] [address] [address] Dec, [place] [address] [address] Dec, DM neuro manif type II E11.49 [facility] [address] [address] Dec, Bruise T14.8XXA ; Type 2 diabetes mellitus with hyperglycemia E11.65 and 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 [place] [address] [place] [id number] [place] [address] Oct, [place] [address] [address] March, Onychomycosis B35.1 and DM neuro manif type II E11.49 [facility] [id number] [place] [address] Jun, [facility] [id number], [place] [address] Jun, [facility] [id number] [place] [address] Jun, COPD with acute exacerbation 491.21 [facility] [id number] [place] [address] Apr, [facility] [id number] [place] [address] Feb, [facility] [id number] [place] [address] Feb, [facility] [id number] [place] [address] Jan, [facility] [address], [place] [address] Jan, [facility] [id number] [place] [address] Jan, [facility] [address], [place] [address] Jan, [facility] [address], [place] [address] Jan, [facility] [address], [place] [address] Jan, [facility] [address], [place] [address] Jan, [facility] [address], [place] [address] Jan, [facility] [id number] [place] [address] 23 Jan, 2014 [facility] [place] [facility] [address] [id number] [place] [address] 19 Jan, 2014 [facility] [place] [facility] [address] [id number] [place] [address] 19 Jan, 2014 [facility] [place] [facility] [address] [id number] [place] [address] 18 Jan, 2014 [facility] [place] [facility] [address] [id number] [place] [address] 18 Jan, 2014 [facility] [place] [facility] [address] [id number] [place] [address] 16 Jan, 2014 [facility] [place] [facility] [address] [id number] [place] [address] 16 Jan, 2014 [facility] [place] [facility] [address] [id number] [place] [address] 16 Jan, 2014 [facility] [place] [facility] [address] [id number] [place] [address] 16 Jan, 2014 [facility] [place] [facility] [address] [id number] [place] [address] 15 Jan, 2014 [facility] [place] [facility] [address] [id number] [place] [address] 13 Jan, 2014 [facility] [place] [facility] [address] [id number] [place] [address] 13 Jan, 2014 [facility] [place] [facility] [address] [id number] [place] [address] 13 Jan, 2014 [facility] [place] [facility] [address] [id number] [place] [address] 13 Jan, 2014 [facility] [place] [facility] [address] [id number] [place] [address] 12 Jan, 2014 [facility] [place] [facility] [address] [id number] [place] [address] Jan, [facility] [place] [facility] [address] [id number] [place] [address] Jan, [facility] [place] [facility] [address] [id number] [place] [address] Dec, [facility] [place] [facility] [address] [id number] [place] [address] Dec, [facility] [place] [facility] [address] [id number] [place] [address] Dec, [facility] [place] [facility] [address] [id number] [place] [address] Dec, [facility] [place] [facility] [address] [id number] [place] [address] Dec, [facility] [place] [facility] [address] [id number] [place] [address] Dec, [facility] [place] [facility] [address] [id number] [place] [address] Dec, [facility] [place] [facility] [address] [id number] [place] [address] Dec, [facility] [place] [facility] [address] [id number] [place] [address] Dec, [facility] [place] [facility] [address] [id number] [place] [address] Dec, [facility] [place] [facility] [address] [id number] [place] [address] Dec, [facility] [place] [facility] [address] [id number] [place] [address] Dec, [facility] [place] [facility] [address] [id number] [place] [address] Nov, [facility] [place] [facility] [address] [id number] [place] [address] Nov, [facility] [place] [facility] [address] [id number] [place] [address] Nov, [facility] [address] [id number] [place] [address] Nov, [facility] [place] [facility] [address] [id number] [place] [address] Nov, [facility] [address] [id number] [place] [address] Nov, [facility] [address] [id number] [place] [address] Nov, [facility] [address] [id number] [place] [address] Nov, [facility] [address] [id number] [place] [address] Nov, [facility] [address] [id number] [place] [address] Nov, [facility] [address] [id number] [place] [address] Nov, [facility] [address] [id number] [place] [address] Nov, [facility] [address] [id number] [place] [address] Oct, [facility] [address] [id number] [place] [address] Oct, [facility] [address] [id number] [place] [address] Oct, [facility] [place] [facility] [address] [id number] [place] [address] Oct, [facility] [place] [facility] [address] [id number] [place] [address] Oct, [facility] [address] [id number] [place] [address] Oct, [facility] [place] [facility] [address] [id number] [place] [address] Oct, [facility] [place] [facility] [address] [id number] [place] [address] Oct, [facility] [place] [facility] [address] [id number] [place] [address] 17 Oct, 2014 [facility] [place] [facility] [address] [id number] [place] [address] 17 Oct, 2014 [facility] [place] [facility] [address] [id number] [place] [address] 16 Oct, 2014 [facility] [place] [facility] [address] [id number] [place] [address] 16 Oct, 2014 [facility] [place] [facility] [address] [id number] [place] [address] 15 Oct, 2014 [facility] [place] [facility] [address] [id number] [place] [address] 15 Oct, 2014 [facility] [place] [facility] [address] [id number] [place] [address] Oct, [facility] [place] [facility] [address] [id number] [place] [address] Sep, [facility] [place] [facility] [address] [id number] [place] [address] Sep, [facility] [place] [facility] [address] [id number], [place] [address] Sep, [facility] [place] [facility] [address] [id number] [place] [address] Sep, [facility] [place] [facility] [address] [id number] [place] [address] Aug, [facility] [place] [facility] [address] [id number], [place] [address] Aug, [facility] [place] [facility] [address] [id number], [place] [address] Aug, [facility] [place] [facility] [address] [id number] [place] [address] Aug, [facility] [place] [facility] [address] [id number] [place] [address] Aug, [facility] [place] [facility] [address] [id number] [place] [address] Aug, [facility] [place] [facility] [address] [id number] [place] [address] 29 Jul, 2014 [facility] [place] [facility] [address] [id number] [place] [address] 29 Jul, 2014 [facility] [place] [facility] [address] [id number] [place] [address] 15 Jul, 2014 [facility] [place] [facility] [address] [id number] [place] [address] 15 Jul, 2014 [facility] [place] [facility] [address] [id number] [place] [address] 08 Jul, 2014 [facility] [place] [facility] [address] [id number] [place] [address] 08 Jul, 2014 [facility] [place] [facility] [address] [id number] [place] [address] Jun, [facility] [place] [facility] [address] [id number] [place] [address] Jun, [facility] [place] [facility] [address] [id number], [place] [address] Jun, [facility] [place] [facility] [address] [id number] [place] [address] Jun, [facility] [place] [facility] [address] [id number] [place] [address] Jun, [facility] [place] [facility] [address] [id number] [place] [address] Jun, [facility] [place] [facility] [address] [id number] [place] [address] Jun, [facility] [place] [facility] [address] [id number] [place] [address] May, [facility] [place] [facility] [address] [id number] [place] [address] May, [facility] [place] [facility] [address] [id number] [place] [address] May, [facility] [place] [facility] [address] [id number] [place] [address] May, [facility] [place] [facility] [address] [id number] [place] [address] May, [facility] [place] [facility] [address] [id number] [place] [address] May, [facility] [place] [facility] [address] [id number] [place] [address] May, [facility] [place] [facility] [address] [id number] [place] [address] May, [facility] [place] [facility] [address] [id number] [place] [address] May, [facility] [place] [facility] [address] [id number] [place] [address] May, [facility] [place] [facility] [address] [id number] [place] [address] May, [facility] [place] [facility] [address] [id number] [place] [address] May, [facility] [place] [facility] [address] [id number] [place] [address] Apr, [facility] [place] [facility] [address] [id number] [place] [address] Apr, [facility] [place] [facility] [address] [id number] [place] [address] Apr, [facility] [place] [facility] [address] [id number] [place] [address] Apr, [facility] [place] [facility] [address] [id number] [place] [address] Apr, [facility] [place] [facility] [address] [id number] [place] [address] Apr, [facility] [place] [facility] [address] [id number] [place] [address] Apr, [facility] [place] [facility] [address] [id number] [place] [address] Apr, [facility] [place] [facility] [address] [id number] [place] [address] Apr, [facility] [place] [facility] [address] [id number] [place] [address] Apr, [facility] [place] [facility] [address] [id number] [place] [address] March, [facility] [place] [facility] [address] [id number] [place] [address] March, [facility] [place] [facility] [address] [id number] [place] [address] March, [facility] [place] [facility] [address] [id number] [place] [address] March, [facility] [place] [facility] [address] [id number] [place] [address] March, [facility] [place] [facility] [address] [id number] [place] [address] March, [facility] [place] [facility] [address] [id number] [place] [address] Feb, [facility] [place] [facility] [address] [id number] [place] [address] Feb, [facility] [place] [facility] [address] [id number] [place] [address] Feb, [facility] [place] [facility] [address] [id number] [place] [address] Feb, [facility] [place] [facility] [address] [id number] [place] [address] Feb, [facility] [place] [facility] [address] [id number] [place] [address] Feb, [facility] [place] [facility] [address] [id number] [place] [address] Feb, [facility] [place] [facility] [address] [id number] [place] [address] Feb, [facility] [place] [facility] [address] [id number] [place] [address] Feb, [facility] [place] [facility] [address] [id number] [place] [address] Feb, [facility] [place] [facility] [address] [id number] [place] [address] Jan, [facility] [place] [facility] [address] [id number] [place] [address] Jan, [facility] [place] [facility] [address] [id number] [place] [address] Jan, [facility] [place] [facility] [address] [id number] [place] [address] Jan, [facility] [place] [facility] [address] [id number] [place] [address] Jan, [facility] [place] [facility] [address] [id number] [place] [address] Jan, [facility] [place] [facility] [address] [id number] [place] [address] Jan, [facility] [place] [facility] [address] [id number] [place] [address] Jan, [facility] [place] [facility] [address] [id number] [place] [address] Dec, [facility] [place] [facility] [address] [id number] [place] [address] Dec, [facility] [place] [facility] [address] [id number] [place] [address] Dec, [facility] [place] [facility] [address] [id number] [place] [address] Dec, [facility] [place] [facility] [address] [id number] [place] [address] Dec, [facility] [place] [facility] [address] [id number] [place] [address] Dec, [facility] [place] [facility] [address] [id number] [place] [address] Dec, [facility] [place] [facility] [address] [id number] [place] [address] Dec, [facility] [place] [facility] [address] [id number] [place] [address] Nov, [facility] [place] [facility] [address] [id number] [place] [address] Nov, [facility] [place] [facility] [address] [id number] [place] [address] Nov, [facility] [place] [facility] [address] [id number] [place] [address] Nov, [facility] [place] [facility] [address] [id number] [place] [address] Nov, [facility] [place] [facility] [address] [id number] [place] [address] Nov, [facility] [place] [facility] [address] [id number] [place] [address] Nov, [facility] [place] [facility] [address] [id number] [place] [address] Nov, [facility] [address] [id number] [place] [address] Nov, [facility] [place] [facility] [address] [id number] [place] [address] Nov, [facility] [address] [id number] [place] [address] Nov, [facility] [place] [facility] [address] [id number] [place] [address] Oct, [facility] [place] [facility] [address] [id number] [place] [address] Oct, [facility] [place] [facility] [address] [id number] [place] [address] Oct, [facility] [address] [facility] [id number] [place] [address] Oct, [facility] [place] [facility] [address] [id number] [place] [address] Sep, [facility] [place] [facility] [address] [id number] [place] [address] Sep, [facility] [place] [facility] [address] [facility] [id number] [place] [address] Sep, [facility] [place] [facility] [address] [id number] [place] [address] Sep, [facility] [place] [facility] [address] [id number], [place] [address] Aug, [facility] [place] [facility] [address] [id number] [place] [address] Aug, [facility] [place] [facility] [address] [facility] [id number] [place] [address] Aug, [facility] [place] [facility] [address] [id number] [place] [address] Aug, [facility] [place] [facility] [address] [id number] [place] [address] Aug, [facility] [place] [facility] [address] [id number] [place] [address] Aug, [facility] [place] [facility] [address] [id number] [place] [address] Aug, [facility] [place] [facility] [address] [id number] [place] [address] Aug, [facility] [address] [id number] [place] [address] 28 Jul, 2013 [facility] [place] [facility] [address] [id number] [place] [address] 27 Jul, 2013 [facility] [address] [id number] [place] [address] 26 Jul, 2012 [facility] [place] [facility] [address] [id number] [place] [address] 24 Jul, 2012 [facility] [place] [facility] [address] [id number] [place] [address] 24 Jul, 2013 [facility] [place] [facility] [address] [id number] [place] [address] 23 Jul, 2013 [facility] [place] [facility] [address] [id number] [place] [address] 19 Jul, 2012 [facility] [place] [facility] [address] [id number], [place] [address] 18 Sep, 2012 [facility] [place] [facility] [address] [id number] [place] [address] 17 Sep, 2012 [facility] [place] [facility] [address] [id number] [place] [address] 16 Sep, 2012 [facility] [place] [facility] [address] [id number] [place] [address] 13 Sep, 2012 [facility] [place] [facility] [address] [id number] [place] [address] Jul, [facility] [place] [facility] [address] [id number] [place] [address] Jul, [facility] [place] [facility] [address] [id number] [place] [address] Jul, [facility] [place] [facility] [address] [id number] [place] [address] Jul, [facility] [place] [facility] [address] [id number] [place] [address] Jun, [facility] [place] [facility] [address] [id number] [place] [address] Jun, [facility] [place] [facility] [address] [id number] [place] [address] Jun, [facility] [place] [facility] [address] [id number] [place] [address] May, [facility] [place] [facility] [address] [id number] [place] [address] May, [facility] [place] [facility] [address] [id number] [place] [address] May, [facility] [place] [facility] [address] [id number] [place] [address] May, [facility] [place] [facility] [address] [id number] [place] [address] Apr, [facility] [place] [facility] [address] [id number] [place] [address] Apr, [facility] [place] [facility] [address] [id number] [place] [address] Apr, [facility] [place] [facility] [address] [id number] [place] [address] Apr, [facility] [place] [facility] [address] [id number] [place] [address] March, [facility] [place] [facility] [address] [id number] [place] [address] March, [facility] [address] [id number] [place] [address] March, [facility] [address] [id number] [place] [address] Feb, [facility] [address] [id number] [place] [address] Feb, [facility] [address] [id number] [place] [address] Jan, [facility] [address] [id number] [place] [address] Jan, [facility] [address] [facility] [id number] [place] [address] Jan, [facility] [address] [id number] [place] [address] Jan, [facility] [address] [id number] [place] [address] Jan, [facility] [address] [id number] [place] [address] Dec, [facility] [address] [facility] [id number] [place] [address] Dec, [facility] [address] [id number] [place] [address] Dec, [facility] [address] [id number] [place] [address] Dec, [facility] [place] [facility] [address] [id number] [place] [address] Dec, [facility] [address] [id number] [place] [address] 06 Dec, 2012 [facility] [address] [id number] [place] [address] 04 Dec, 2012 [facility] [address] [id number] [place] [address] Dec, [facility] [place] [facility] [address] [id number] [place] [address] Nov, [facility] [address] [id number] [place] [address] Nov, [facility] [place] [facility] [address] [id number] [place] [address] Nov, [facility] [address] [id number] [place] [address] Nov, [facility] [address] [id number] [place] [address] Nov, [facility] [address] [id number] [place] [address] Nov, [facility] [address] [id number] [place] [address] Nov, [facility] [address] [id number] [place] [address] Oct, [facility] [address] [id number] [place] [address] Oct, [facility] [address] [id number] [place] [address] Oct, [facility] [place] [facility] [address] [id number] [place] [address] Oct, [facility] [place] [facility] [address] [id number] [place] [address] Oct, [facility] [place] [facility] [address] [id number] [place] [address] Oct, [facility] [place] [facility] [address] [id number] [place] [address] Oct, [facility] [place] [facility] [address] [id number] [place] [address] Oct, [facility] [place] [facility] [address] [id number] [place] [address] Sep, [facility] [place] [facility] [address] [id number] [place] [address] Sep, [facility] [place] [facility] [address] [id number] [place] [address] Sep, [facility] [place] [facility] [address] [id number] [place] [address] Sep, [facility] [place] [facility] [address] [id number] [place] [address] Sep, [facility] [place] [facility] [address] [id number] [place] [address] Sep, [facility] [place] [facility] [address] [id number] [place] [address] Sep, [facility] [place] [facility] [address] [id number] [place] [address] Sep, [facility] [place] [facility] [address] [id number] [place] [address] Sep, [facility] [place] [facility] [address] [id number] [place] [address] Sep, [facility] [place] [facility] [address] [id number] [place] [address] Sep, [facility] [place] [facility] [address] [id number] [place] [address] Sep, [facility] [place] [facility] [address] [id number] [place] [address] Sep, [facility] [place] [facility] [address] [id number] [place] [address] Sep, [facility] [place] [facility] [address] [id number] [place] [address] Sep, [facility] [place] [facility] [address] [id number] [place] [address] Sep, [facility] [place] [facility] [address] [id number] [place] [address] Sep, [facility] [place] [facility] [address] [id number] [place] [address] Sep, [facility] [place] [facility] [address] [id number] [place] [address] Sep, [facility] [place] [facility] [address] [id number] [place] [address] Sep, [facility] [place] [facility] [address] [id number] [place] [address] Aug, [facility] [place] [facility] [address] [id number] [place] [address] Aug, [facility] [place] [facility] [address] [id number], [place] [address] 29 Aug, 2012 [facility] [place] [facility] [address] [id number] [place] [address] Aug, [facility] [place] [facility] [address] [facility] [id number], [place] [address] Aug, [facility] [place] [facility] [address] [facility] [id number], [place] [address] Aug, [facility] [place] [facility] [address] [id number], [place] [address] 18 Aug, 2012 [facility] [place] [facility] [address] [id number], [place] [address] 17 Aug, 2012 [facility] [place] [facility] [address] [facility] [id number], [place] [address] 16 Aug, 2012 [facility] [place] [facility] [address] [facility] [id number], [place] [address] 16 Aug, 2012 [facility] [place] [facility] [address] [id number], [place] [address] Aug, [facility] [place] [facility] [address] [id number] [place] [address] Aug, [facility] [place] [facility] [address] [id number] [place] [address] Aug, [facility] [place] [facility] [address] [id number] [place] [address] Aug, [facility] [place] [facility] [address] [id number] [place] [address] Aug, [facility] [place] [facility] [address] [id number] [place] [address] 14 Jul, 2012 [facility] [place] [facility] [address] [id number] [place] [address] Jul, [facility] [place] [facility] [address] [facility] [id number] [place] [address] Jun, [facility] [place] [facility] [address] [id number] [place] [address] Jun, [facility] [place] [facility] [id number] [address] May, [facility] [place] [facility] [address] [facility] [id number] [place] [address] May, [facility] [place] [facility] [address] [id number] [place] [address] May, [facility] [place] [facility] [address] [id number], [place] [address] May, [facility] [place] [facility] [address] [id number] [place] [address] May, [facility] [place] [facility] [address] [facility] [id number] [place] [address] May, [facility] [place] [facility] [address] [facility] [id number] [place] [address] Apr, [facility] [place] [facility] [address] [id number] [place] [address] 15 Apr, 2012 [facility] [place] [facility] [address] [id number] [place] [address] March, [facility] [place] [facility] [address] [id number] [place] [address] March, [facility] [place] [facility] [address] [id number] [place] [address] March, [facility] [place] [facility] [address] [id number] [place] [address] March, [facility] [place] [facility] [address] [id number] [place] [address] March, [facility] [place] [facility] [address] [id number] [place] [address] March, [facility] [place] [facility] [address] [id number] [place] [address] Feb, [facility] [place] [facility] [address] [id number] [place] [address] Feb, [facility] [place] [facility] [address] [id number] [place] [address] Feb, [facility] [place] [facility] [address] [id number] [place] [address] Feb, [facility] [place] [facility] [address] [id number] [place] [address] Feb, [facility] [place] [facility] [address] [id number] [place] [address] 19 Feb, 2012 [facility] [place] [facility] [address] [id number] [place] [address] Feb, [facility] [place] [facility] [address] [id number] [place] [address] Feb, [facility] [place] [facility] [address] [id number] [place] [address] 04 Feb, 2012 [facility] [place] [facility] [address] [id number] [place] [address] 30 Jan, 2012 [facility] [place] [facility] [address] [id number] [place] [address] 27 Jan, 2012 [facility] [place] [facility] [address] [id number] [place] [address] Jan, [facility] [place] [facility] [address] [id number] [place] [address] 22 Jan, 2012 [facility] [place] [facility] [address] [id number] [place] [address] 21 Jan, 2012 [facility] [place] [facility] [address] [id number] [place] [address] 20 Jan, 2012 [facility] [place] [facility] [address] [id number] [place] [address] 14 Jan, 2012 [facility] [place] [facility] [address] [id number] [place] [address] Jan, [facility] [place] [facility] [address] [id number] [place] [address] Jan, [facility] [place] [facility] [address] [id number] [place] [address] 08 Jan, 2012 [facility] [place] [facility] [address] [id number] [place] [address] 07 Jan, 2012 [facility] [place] [facility] [address] [id number], [place] [address] 06 Jan, 2012 [facility] [place] [facility] [address] [id number] [place] [address] Jan, [facility] [place] [facility] [address] [id number] [place] [address] Jan, [facility] [place] [facility] [address] [id number] [place] [address] Dec, [facility] [place] [facility] [address] [id number] [place] [address] 27 Dec, 2011 [facility] [place] [facility] [address] [id number] [place] [address] Dec, [facility] [place] [facility] [address] [id number] [place] [address] 23 Dec, 2011 [facility] [place] [facility] [address] [id number] [place] [address] 16 Dec, 2011 [facility] [place] [facility] [address] [id number] [place] [address] 08 Dec, 2011 [facility] [place] [facility] [address] [id number] [place] [address] 08 Dec, 2011 [facility] [place] [facility] [address] [facility] [id number] [place] [address] Dec, [facility] [place] [facility] [address] [facility] [id number] [place] [address] 07 Dec, 2011 [facility] [place] [facility] [address] [facility] [id number] [place] [address] Nov, [facility] [place] [facility] [address] [facility] [id number] [place] [address] Nov, [facility] [place] [facility] [address] [facility] [id number] [place] [address] Nov, [facility] [place] [facility] [address] [facility] [id number] [place] [address] Nov, [facility] [place] [facility] [address] [id number] [place] [address] Oct, [facility] [place] [facility] [address] [facility] [id number] [place] [address] Oct, [facility] [place] [facility] [address] [facility] [id number] [place] [address] Oct, [facility] [place] [facility] [address] [facility] [id number] [place] [address] Oct, [facility] [place] [facility] [address] [id number] [place] [address] Oct, [facility] [place] [facility] [address] [id number] [place] [address] Oct, [facility] [place] [facility] [address] [facility] [id number] [place] [address] Oct, [facility] [place] [facility] [address] [id number], [place] [address] Sep, [facility] [place] [facility] [address] [id number] [place] [address] Sep, [facility] [place] [facility] [address] [id number], [place] [address] Sep, [facility] [place] [facility] [address] [id number] [place] [address] Sep, [facility] [place] [facility] [address] [id number], [place] [address] Sep, [facility] [place] [facility] [address] [id number], [place] [address] Sep, [facility] [place] [facility] [address] [id number], [place] [address] Sep, [facility] [place] [facility] [address] [id number], [place] [address] Sep, [facility] [place] [facility] [address] [id number], [place] [address] Sep, [facility] [place] [facility] [address] [id number], [place] [address] Aug, [facility] [place] [facility] [address] [id number], [place] [address] Aug, [facility] [place] [facility] [address] [id number], [place] [address] Aug, [facility] [place] [facility] [address] [id number] [place] [address] May, [facility] [address] [id number] [place] [address] 13 Nov, 2010 [facility] [address] [id number] [place] [address] 31 Oct, 2010 [facility] [address] [id number] [place] [address] 30 Oct, 2010 [facility] [address] [id number] [place] [address] 30 Oct, 2010 [facility] [address] [id number] [place] [address] Oct, [facility] [address] [id number] [place] [address] Oct, [facility] [address] [id number] [place] [address] Sep, [facility] [address] [id number] [place] [address] Sep, [facility] [address] [id number] [place] [address] 14 Jul, 2010 [facility] [address] [facility] [id number] [place] [address] 31 Oct, 2009 [facility] [address] [id number] [place] [address] Oct, [facility] [address] [id number] [place] [address] 04 Oct, 2009 [facility] [place] [facility] [address] [id number] [place] [address] 03 Oct, 2009 [facility] [place] [facility] [address] [id number] [place] [address] 30 Sep, 2009 [facility] [address] [id number] [place] [address] 13 Sep, 2009 [facility] [address] [facility] [id number] [place] [address] 13 Sep, 2009 [facility] [address] [facility] [id number], [place] [address] 04 Sep, 2009 [facility] [address] [facility] [id number], [place] [address] Sep, [facility] [address] [id number], [place] [address] Jul, [facility] [address] [facility] [id number], [place] [address] Apr, [facility] [address] [facility] [id number], [place] [address] Dec, IMMUNIZATIONS No Known Immunizations SOCIAL HISTORY Never Assessed REASON FOR VISIT PLAN OF CARE VITAL SIGNS Height 67 in 2015-02-19 Weight 214.5 lbs 2015-02-19 Temperature 98 degrees Fahrenheit 2015-02-19 Heart Rate 61 bpm 2015-02-19 Respiratory Rate 20 2015-02-19 Blood pressure systolic 123 mmHg 2015-02-19 Blood pressure diastolic 80 mmHg 2015-02-19 MEDICATIONS Unknown Medications RESULTS No Results PROCEDURES Procedure Date Ordered Result Body Site TTE W/DOPPLER, COMPLETE February 19, 2015 COMPLETE CBC W/AUTO DIFF WBC February 19, 2015 ASSAY THYROID STIM HORMONE February 19, 2015 ASSAY OF MAGNESIUM February 19, 2015 COMPREHEN METABOLIC PANEL February 19, 2015 VISIT February 19, 2015 VENIPUNCT, ROUTINE* February 19, 2015 INSTRUCTIONS MEDICATIONS ADMINISTERED No Known Medications [...]
--- OUTSIDE RECORDS SUMMARY | 2019-06-14 11:12 | XMS REPORT ---
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 Name Role Phone ETELVINA LEONARD Unavailable PROBLEMS Type Condition ICD9-CM Code XRA95-HQ Code Onset Dates Condition Status SNOMED Code Problem Acquired hypothyroidism E03.9 Active 486187187 Problem Prediabetes R73.03 Active 716691341 Problem Essential hypertension I10 Active 96924111 Problem Mixed hyperlipidemia E78.2 Active 496417685 Problem Gastroesophageal reflux disease, esophagitis presence not specified K21.9 Active 483684022 Problem Reactive depression F32.9 Active 68745512 Problem Lumbago with sciatica, right side M54.41 Active [id number] Problem Lumbago with sciatica, left side M54.42 Active 345094526 Problem Cigarette nicotine dependence without complication F17.210 Active 84479657 Problem DM neuro manif type II E11.49 Active 56458853 Problem Seizures R56.9 Active 91166006 Problem Adjustment disorder with disturbance of emotion F43.29 Active 02500813 Problem Chronic obstructive pulmonary disease, unspecified COPD type J44.9 Active 10744172 Problem Major depressive disorder, recurrent, moderate F33.1 Active 468849326 Problem Other chronic pain G89.29 Active 66844001 Problem Iron deficiency anemia due to chronic blood loss D50.0 Active 350340860 Problem Seasonal allergies J30.2 Active 771174869 Problem Sinusitis J32.9 Active 36091345 Problem Chronic pain G89.29 Active 06635605 ALLERGIES No Information ENCOUNTERS Encounter Location Date Diagnosis [facility] [address], [place] [address] May, [facility] [address], [place] [address] May, [facility] [address] [place] [id number] [place] [address] May, [place] [address] [address] Apr, [place] [id number] [place] [address] 18 Apr, 2019 Type 2 diabetes mellitus with hyperglycemia E11.65 [place] [address] [address] 17 Apr, 2019 Type 2 diabetes mellitus with hyperglycemia E11.65 [place] [address] [address] 14 Apr, 2019 Major depressive disorder, recurrent, moderate F33.1 and Adjustment disorder with disturbance of emotion F43.29 [place] [address] [address] Apr, [place] [address] [address] Apr, Diarrhea, unspecified type R19.7 [place] [address] [place] [id number] [place] [address] Apr, Low back pain M54.5 ; Other chronic pain G89.29 and Anemia, unspecified type D64.9 [place] [id number] [place] [address] Apr, [place] [address] [address] Apr, Diarrhea, unspecified type R19.7 and Lumbar radiculopathy, chronic M54.16 [facility] [place] [address] [address] March, Non-intractable vomiting with nausea, unspecified vomiting type R11.2 and Muscle cramps R25.2 [place] [id number] [place] [address] March, [place] [address], [place] [address] 17 Mar, 2019 Other chronic pain G89.29 [facility] [id number] [place] [address] March, Type 2 diabetes mellitus with hyperglycemia E11.65 ; Flank pain R10.9 ; Acute cystitis without hematuria N30.00 ; Chronic obstructive pulmonary disease, unspecified COPD type J44.9 and Moderate episode of recurrent major depressive disorder F33.1 [facility] [id number] [place] [address] March, [facility] [id number] [place] [address] March, Wheezing R06.2 and Viral upper respiratory tract infection J06.9 [place] [id number] [place] [address] Feb, [facility] [id number] [place] [address] Feb, [facility] [id number] [place] [address] Jan, [facility] [id number] [place] [address] Jan, Acute cystitis with hematuria N30.01 and Dysuria R30.0 [facility] [id number] [place] [address] Jan, [facility] [id number] [place] [address] Dec, [facility] [id number] [place] [address] Dec, [facility] [id number] [place] [address] Dec, [facility] [id number] [place] [address] Dec, [facility] [address] [place] [id number] [address] Dec, Routine adult health maintenance Z00.00 ; Chronic obstructive pulmonary disease, unspecified COPD type J44.9 and Encounter for immunization Z23 [facility] [address], [place] [address] Nov, [facility] [id number] [place] [address] Nov, UTI (urinary tract infection) N39.0 and Other chronic pain G89.29 [facility] [id number] [place] [address] Nov, [facility] [id number] [place] [address] Nov, [facility] [id number] [place] [address] Nov, Painful urination R30.9 and UTI (urinary tract infection) N39.0 [facility] [address], [place] [address] Nov, [facility] [address], [place] [address] Nov, UTI (urinary tract infection) N39.0 [facility] [address], [place] [address] Nov, Dysuria R30.0 ; UTI (urinary tract infection) N39.0 and Chronic pain G89.29 [facility] [address] [id number] [address] Nov, [facility] [id number] [place] [address] Oct, Cough R05 [facility] [address], [place] [address] 14 Oct, 2018 Sinusitis J32.9 [place] [id number] [place] [address] Oct, [place] [address] [address] Oct, UTI (urinary tract infection) N39.0 and URI (upper respiratory infection) J06.9 [place] [id number] [place] [address] Sep, Pain in thoracic spine M54.6 [place] [id number] [place] [address] Sep, Type 2 diabetes mellitus with hyperglycemia E11.65 [place] [id number] [place] [address] Sep, Chronic obstructive pulmonary disease, unspecified COPD type J44.9 ; Abrasion of right ear canal, initial encounter S00.411A ; Cigarette nicotine dependence without complication F17.210 ; Right leg pain M79.604 and Seasonal allergies J30.2 [place] [id number] [place] [address] Aug, [place] [id number] [place] [address] Aug, [place] [id number] [place] [address] Aug, Pain in thoracic spine M54.6 [place] [id number] [place] [address] Aug, [place] [id number] [place] [address] Aug, Chronic obstructive pulmonary disease, unspecified COPD type J44.9 ; Complete amputation of right foot, 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 ; Cigarette nicotine dependence without complication F17.210 and BMI 40.0-44.9, adult Z68.41 [place] [id number] [place] [address] Jul, [place] [id number] [place] [address] Jul, [place] [address] [address] Jul, Onychomycosis B35.1 ; Onychocryptosis L60.0 and DM neuro manif type II E11.49 [place] [address] [address] Jun, Pain in thoracic spine M54.6 [place] [address] [address] Jun, Iron deficiency anemia due to chronic blood loss D50.0 and Hematochezia K92.1 [place] [address] [address] Jun, Gastroenteritis K52.9 and Abnormal RBC indices R71.8 [place] [address] [address] Jun, [place] [address] [address] Jun, Chest congestion R09.89 and Seizures R56.9 [place] [address] [address] May, Pain in thoracic spine M54.6 [place] [id number] [place] [address] May, [place] [id number] [place] [address] May, [place] [address] [address] May, [place] [address] [address] May, Acute non-recurrent frontal sinusitis J01.10 and Dermatitis L30.9 [place] [address], [place] [address] May, [facility] [id number] [place] [address] May, Pain in thoracic spine M54.6 [facility] [id number] [place] [address] May, [facility] [id number] [place] [address] May, Acute nasopharyngitis J00 [facility] [id number] [place] [address] May, [facility] [id number] [place] [address] May, [facility] [id number] [place] [address] Apr, [facility] [id number] [place] [address] Apr, [facility] [id number] [place] [address] Apr, [facility] [address], [place] [address] Apr, [facility] [id number] [place] [address] Apr, Pain in right ankle and joints of right foot M25.571 [facility] [address], [place] [address] Apr, [facility] [id number] [place] [address] Apr, Bronchitis J40 ; Pain in right ankle and joints of right foot M25.571 ; Other chronic pain G89.29 ; Prediabetes R73.03 ; Chronic obstructive pulmonary disease, unspecified COPD type J44.9 and Cigarette nicotine dependence without complication F17.210 [facility] [id number] [place] [address] 13 Apr, 2018 Seasonal allergic rhinitis, unspecified trigger J30.2 [place] [id number] [place] [address] 08 Apr, 2018 Onychomycosis B35.1 ; Onychocryptosis L60.0 and DM neuro manif type II E11.[address] [address] Apr, Reactive depression F32.9 ; Thoracic myofascial strain, initial encounter S29.019A and Leg cramps R25.[address] [address] March, [place] [address] [address] March, Type 2 diabetes mellitus with hyperglycemia E11.65 [place] [address] [address] March, Reactive depression F32.[address] [address] March, Pain in thoracic spine M54.6 and Other chronic pain G89.29 [place] [address] [address] Feb, [place] [address] [address] Jan, Reactive depression F32.9 ; Essential hypertension I10 ; Gastroesophageal reflux disease, esophagitis presence not specified K21.9 ; Lumbago with sciatica, left side M54.42 and Lumbago with sciatica, right side M54.41 [place] [id number] [place] [address] Jan, Reactive depression F32.9 and Pharyngoesophageal dysphagia R13.14 [place] [id number] [address] Jan, [place] [address] [address] Jan, Encounter for immunization Z23 [place] [address] [address] Jan, Onychomycosis B35.1 and DM neuro manif type II E11.49 [place] [address] [address] Jan, [place] [address] [address] Jan, Prediabetes R73.03 [place] [address] [address] Dec, [place] [address] [address] Dec, Essential hypertension I10 ; Mixed hyperlipidemia E78.2 ; Acquired hypothyroidism E03.9 ; Reactive depression F32.9 and Prediabetes R73.03 [place] [address] [address] Dec, [place] [address] [address] Dec, [place] [address] [address] Dec, DM neuro manif type II E11.49 [facility] [address] [address] Dec, Bruise T14.8XXA ; Type 2 diabetes mellitus with hyperglycemia E11.65 and 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 [place] [id number] [place] [address] Oct, [place] [address] [address] March, Onychomycosis B35.1 and DM neuro manif type II E11.49 [facility] [id number] [place] [address] Jun, [facility] [id number] [address] Jun, [facility] [id number] [place] [address] Jun, COPD with acute exacerbation 491.21 [facility] [id number] [place] [address] Apr, [facility] [id number] [place] [address] Feb, [facility] [id number] [place] [address] Feb, [facility] [id number] [address] Jan, [facility] [address], [place] [address] Jan, [facility] [id number] [address] Jan, [facility] [address], [place] [address] Jan, [facility] [address], [place] [address] Jan, [facility] [address], [place] [address] Jan, [facility] [address], [place] [address] Jan, [facility] [address], [place] [address] Jan, [facility] [id number] [place] [address] 23 Jan, 2014 [facility] [place] [facility] [address] [id number] [place] [address] 19 Jan, 2014 [facility] [place] [facility] [address] [id number] [place] [address] 19 Jan, 2014 [facility] [place] [facility] [address] [id number] [place] [address] 18 Jan, 2014 [facility] [place] [facility] [address] [id number] [place] [address] 18 Jan, 2014 [facility] [place] [facility] [address] [id number] [place] [address] 16 Jan, 2014 [facility] [place] [facility] [address] [id number] [place] [address] 16 Jan, 2014 [facility] [place] [facility] [address] [id number] [place] [address] 16 Jan, 2014 [facility] [place] [facility] [address] [id number] [place] [address] 16 Jan, 2014 [facility] [place] [facility] [address] [id number] [place] [address] 15 Jan, 2014 [facility] [place] [facility] [address] [id number] [place] [address] 13 Jan, 2014 [facility] [place] [facility] [address] [id number] [place] [address] 13 Jan, 2014 [facility] [place] [facility] [address] [id number] [place] [address] 13 Jan, 2014 [facility] [place] [facility] [address] [id number] [place] [address] 13 Jan, 2014 [facility] [place] [facility] [address] [id number] [place] [address] 12 Jan, 2014 [facility] [place] [facility] [address] [id number] [place] [address] Jan, [facility] [place] [facility] [address] [id number] [place] [address] Jan, [facility] [place] [facility] [address] [id number] [place] [address] Dec, [facility] [place] [facility] [address] [id number] [place] [address] Dec, [facility] [place] [facility] [address] [id number] [place] [address] Dec, [facility] [place] [facility] [address] [id number] [place] [address] Dec, [facility] [place] [facility] [address] [id number] [place] [address] Dec, [facility] [place] [facility] [address] [id number] [place] [address] Dec, [facility] [place] [facility] [address] [id number] [place] [address] Dec, [facility] [place] [facility] [address] [id number] [place] [address] Dec, [facility] [place] [facility] [address] [id number] [place] [address] Dec, [facility] [place] [facility] [address] [id number] [place] [address] Dec, [facility] [place] [facility] [address] [id number] [place] [address] Dec, [facility] [place] [facility] [address] [id number] [place] [address] Dec, [facility] [place] [facility] [address] [id number] [place] [address] Nov, [facility] [place] [facility] [address] [id number] [place] [address] Nov, [facility] [place] [facility] [address] [id number] [place] [address] Nov, [facility] [address] [id number] [place] [address] Nov, [facility] [place] [facility] [address] [id number] [place] [address] Nov, [facility] [address] [id number] [place] [address] Nov, [facility] [address] [id number] [place] [address] Nov, [facility] [address] [id number] [place] [address] Nov, [facility] [address] [id number] [place] [address] Nov, [facility] [address] [id number] [place] [address] Nov, [facility] [address] [id number] [place] [address] Nov, [facility] [address] [id number] [place] [address] Nov, [facility] [address] [id number] [place] [address] Oct, [facility] [address] [id number] [place] [address] Oct, [facility] [address] [id number] [place] [address] Oct, [facility] [place] [facility] [address] [id number] [place] [address] Oct, [facility] [place] [facility] [address] [id number] [place] [address] Oct, [facility] [address] [id number] [place] [address] Oct, [facility] [place] [facility] [address] [id number] [place] [address] Oct, [facility] [place] [facility] [address] [id number] [place] [address] Oct, [facility] [place] [facility] [address] [id number] [place] [address] 17 Oct, 2014 [facility] [place] [facility] [address] [id number] [place] [address] 17 Oct, 2014 [facility] [place] [facility] [address] [id number] [place] [address] 16 Oct, 2014 [facility] [place] [facility] [address] [id number] [place] [address] 16 Oct, 2014 [facility] [place] [facility] [address] [id number] [place] [address] 15 Oct, 2014 [facility] [place] [facility] [address] [id number] [place] [address] 15 Oct, 2014 [facility] [place] [facility] [address] [id number] [place] [address] Oct, [facility] [place] [facility] [address] [id number] [place] [address] Sep, [facility] [place] [facility] [address] [id number] [place] [address] Sep, [facility] [place] [facility] [address] [id number] [address] Sep, [facility] [place] [facility] [address] [id number] [place] [address] Sep, [facility] [place] [facility] [address] [id number] [place] [address] Aug, [facility] [place] [facility] [address] [id number], [place] [address] Aug, [facility] [place] [facility] [address] [id number], [place] [address] Aug, [facility] [place] [facility] [address] [id number] [place] [address] Aug, [facility] [place] [facility] [address] [id number] [place] [address] Aug, [facility] [place] [facility] [address] [id number] [place] [address] Aug, [facility] [place] [facility] [address] [id number] [place] [address] 29 Jul, 2014 [facility] [place] [facility] [address] [id number] [place] [address] 29 Jul, 2014 [facility] [place] [facility] [address] [id number] [place] [address] 15 Jul, 2014 [facility] [place] [facility] [address] [id number] [place] [address] 15 Jul, 2014 [facility] [place] [facility] [address] [id number] [place] [address] 08 Jul, 2014 [facility] [place] [facility] [address] [id number] [place] [address] 08 Jul, 2014 [facility] [place] [facility] [address] [id number] [place] [address] Jun, [facility] [place] [facility] [address] [id number] [place] [address] Jun, [facility] [place] [facility] [address] [id number], [place] [address] Jun, [facility] [place] [facility] [address] [id number] [place] [address] Jun, [facility] [place] [facility] [address] [id number] [place] [address] Jun, [facility] [place] [facility] [address] [id number] [place] [address] Jun, [facility] [place] [facility] [address] [id number] [place] [address] Jun, [facility] [place] [facility] [address] [id number] [place] [address] May, [facility] [place] [facility] [address] [id number] [place] [address] May, [facility] [place] [facility] [address] [id number] [place] [address] May, [facility] [place] [facility] [address] [id number] [place] [address] May, [facility] [place] [facility] [address] [id number] [place] [address] May, [facility] [place] [facility] [address] [id number] [place] [address] May, [facility] [place] [facility] [address] [id number] [place] [address] May, [facility] [place] [facility] [address] [id number] [place] [address] May, [facility] [place] [facility] [address] [id number] [place] [address] May, [facility] [place] [facility] [address] [id number] [place] [address] May, [facility] [place] [facility] [address] [id number] [place] [address] May, [facility] [place] [facility] [address] [id number] [place] [address] May, [facility] [place] [facility] [address] [id number] [place] [address] Apr, [facility] [place] [facility] [address] [id number] [place] [address] Apr, [facility] [place] [facility] [address] [id number] [place] [address] Apr, [facility] [place] [facility] [address] [id number] [place] [address] Apr, [facility] [place] [facility] [address] [id number] [place] [address] Apr, [facility] [place] [facility] [address] [id number] [place] [address] Apr, [facility] [place] [facility] [address] [id number] [place] [address] Apr, [facility] [place] [facility] [address] [id number] [place] [address] Apr, [facility] [place] [facility] [address] [id number] [place] [address] Apr, [facility] [place] [facility] [address] [id number] [place] [address] Apr, [facility] [place] [facility] [address] [id number] [place] [address] March, [facility] [place] [facility] [address] [id number] [place] [address] March, [facility] [place] [facility] [address] [id number] [place] [address] March, [facility] [place] [facility] [address] [id number] [place] [address] March, [facility] [place] [facility] [address] [id number] [place] [address] March, [facility] [place] [facility] [address] [id number] [place] [address] March, [facility] [place] [facility] [address] [id number] [place] [address] Feb, [facility] [place] [facility] [address] [id number] [place] [address] Feb, [facility] [place] [facility] [address] [id number] [place] [address] Feb, [facility] [place] [facility] [address] [id number] [place] [address] Feb, [facility] [place] [facility] [address] [id number] [place] [address] Feb, [facility] [place] [facility] [address] [id number] [place] [address] Feb, [facility] [place] [facility] [address] [id number] [place] [address] Feb, [facility] [place] [facility] [address] [id number] [place] [address] Feb, [facility] [place] [facility] [address] [id number] [place] [address] Feb, [facility] [place] [facility] [address] [id number] [place] [address] Feb, [facility] [place] [facility] [address] [id number] [place] [address] Jan, [facility] [place] [facility] [address] [id number] [place] [address] Jan, [facility] [place] [facility] [address] [id number] [place] [address] Jan, [facility] [place] [facility] [address] [id number] [place] [address] Jan, [facility] [place] [facility] [address] [id number] [place] [address] Jan, [facility] [place] [facility] [address] [id number] [place] [address] Jan, [facility] [place] [facility] [address] [id number] [place] [address] Jan, [facility] [place] [facility] [address] [id number] [place] [address] Jan, [facility] [place] [facility] [address] [id number] [place] [address] Dec, [facility] [place] [facility] [address] [id number] [place] [address] Dec, [facility] [place] [facility] [address] [id number] [place] [address] Dec, [facility] [place] [facility] [address] [id number] [place] [address] Dec, [facility] [place] [facility] [address] [id number] [place] [address] Dec, [facility] [place] [facility] [address] [id number] [place] [address] Dec, [facility] [place] [facility] [address] [id number] [place] [address] Dec, [facility] [place] [facility] [address] [id number] [place] [address] Dec, [facility] [place] [facility] [address] [id number] [place] [address] Nov, [facility] [place] [facility] [address] [id number] [place] [address] Nov, [facility] [place] [facility] [address] [id number] [place] [address] Nov, [facility] [place] [facility] [address] [id number] [place] [address] Nov, [facility] [place] [facility] [address] [id number] [place] [address] Nov, [facility] [place] [facility] [address] [id number] [place] [address] Nov, [facility] [place] [facility] [address] [id number] [place] [address] Nov, [facility] [place] [facility] [address] [id number] [place] [address] Nov, [facility] [address] [id number] [place] [address] Nov, [facility] [place] [facility] [address] [id number] [place] [address] Nov, [facility] [address] [id number] [place] [address] Nov, [facility] [place] [facility] [address] [id number] [place] [address] Oct, [facility] [place] [facility] [address] [id number] [place] [address] Oct, [facility] [place] [facility] [address] [id number] [place] [address] Oct, [facility] [address] [facility] [id number] [place] [address] Oct, [facility] [place] [facility] [address] [id number] [place] [address] Sep, [facility] [place] [facility] [address] [id number] [place] [address] Sep, [facility] [place] [facility] [address] [facility] [id number] [place] [address] Sep, [facility] [place] [facility] [address] [id number] [place] [address] Sep, [facility] [place] [facility] [address] [id number] [address] Aug, [facility] [place] [facility] [address] [id number] [place] [address] Aug, [facility] [place] [facility] [address] [facility] [id number] [place] [address] Aug, [facility] [place] [facility] [address] [id number] [place] [address] Aug, [facility] [place] [facility] [address] [id number] [place] [address] Aug, [facility] [place] [facility] [address] [id number] [place] [address] Aug, [facility] [place] [facility] [address] [id number] [place] [address] Aug, [facility] [place] [facility] [address] [id number] [place] [address] Aug, [facility] [address] [id number] [place] [address] 28 Jul, 2013 [facility] [place] [facility] [address] [id number] [place] [address] 27 Jul, 2013 [facility] [address] [id number] [place] [address] 26 Jul, 2012 [facility] [place] [facility] [address] [id number] [place] [address] 24 Jul, 2012 [facility] [place] [facility] [address] [id number] [place] [address] 24 Jul, 2013 [facility] [place] [facility] [address] [id number] [place] [address] 23 Jul, 2013 [facility] [place] [facility] [address] [id number] [place] [address] 19 Jul, 2012 [facility] [place] [facility] [address] [id number] [address] 18 Sep, 2012 [facility] [place] [facility] [address] [id number] [place] [address] 17 Sep, 2012 [facility] [place] [facility] [address] [id number] [place] [address] 16 Sep, 2012 [facility] [place] [facility] [address] [id number] [place] [address] 13 Sep, 2012 [facility] [place] [facility] [address] [id number] [place] [address] Jul, [facility] [place] [facility] [address] [id number] [place] [address] Jul, [facility] [place] [facility] [address] [id number] [place] [address] Jul, [facility] [place] [facility] [address] [id number] [place] [address] Jul, [facility] [place] [facility] [address] [id number] [place] [address] Jun, [facility] [place] [facility] [address] [id number] [place] [address] Jun, [facility] [place] [facility] [address] [id number] [place] [address] Jun, [facility] [place] [facility] [address] [id number] [place] [address] May, [facility] [place] [facility] [address] [id number] [place] [address] May, [facility] [place] [facility] [address] [id number] [place] [address] May, [facility] [place] [facility] [address] [id number] [place] [address] May, [facility] [place] [facility] [address] [id number] [place] [address] Apr, [facility] [place] [facility] [address] [id number] [place] [address] Apr, [facility] [place] [facility] [address] [id number] [place] [address] Apr, [facility] [place] [facility] [address] [id number] [place] [address] Apr, [facility] [place] [facility] [address] [id number] [place] [address] March, [facility] [place] [facility] [address] [id number] [place] [address] March, [facility] [address] [id number] [place] [address] March, [facility] [address] [id number] [place] [address] Feb, [facility] [address] [id number] [place] [address] Feb, [facility] [address] [id number] [place] [address] Jan, [facility] [address] [id number] [place] [address] Jan, [facility] [address] [facility] [id number] [place] [address] Jan, [facility] [address] [id number] [place] [address] Jan, [facility] [address] [id number] [place] [address] Jan, [facility] [address] [id number] [place] [address] Dec, [facility] [address] [facility] [id number] [place] [address] Dec, [facility] [address] [id number] [place] [address] Dec, [facility] [address] [id number] [place] [address] Dec, [facility] [place] [facility] [address] [id number] [place] [address] Dec, [facility] [address] [id number] [place] [address] 06 Dec, 2012 [facility] [address] [id number] [place] [address] 04 Dec, 2012 [facility] [address] [id number] [place] [address] Dec, [facility] [place] [facility] [address] [id number] [place] [address] Nov, [facility] [address] [id number] [place] [address] Nov, [facility] [place] [facility] [address] [id number] [place] [address] Nov, [facility] [address] [id number] [place] [address] Nov, [facility] [address] [id number] [place] [address] Nov, [facility] [address] [id number] [place] [address] Nov, [facility] [address] [id number] [place] [address] Nov, [facility] [address] [id number] [place] [address] Oct, [facility] [address] [id number] [place] [address] Oct, [facility] [address] [id number] [place] [address] Oct, [facility] [place] [facility] [address] [id number] [place] [address] Oct, [facility] [place] [facility] [address] [id number] [place] [address] Oct, [facility] [place] [facility] [address] [id number] [place] [address] Oct, [facility] [place] [facility] [address] [id number] [place] [address] Oct, [facility] [place] [facility] [address] [id number] [place] [address] Oct, [facility] [place] [facility] [address] [id number] [place] [address] Sep, [facility] [place] [facility] [address] [id number] [place] [address] Sep, [facility] [place] [facility] [address] [id number] [place] [address] Sep, [facility] [place] [facility] [address] [id number] [place] [address] Sep, [facility] [place] [facility] [address] [id number] [place] [address] Sep, [facility] [place] [facility] [address] [id number] [place] [address] Sep, [facility] [place] [facility] [address] [id number] [place] [address] Sep, [facility] [place] [facility] [address] [id number] [place] [address] Sep, [facility] [place] [facility] [address] [id number] [place] [address] Sep, [facility] [place] [facility] [address] [id number] [place] [address] Sep, [facility] [place] [facility] [address] [id number] [place] [address] Sep, [facility] [place] [facility] [address] [id number] [place] [address] Sep, [facility] [place] [facility] [address] [id number] [place] [address] Sep, [facility] [place] [facility] [address] [id number] [place] [address] Sep, [facility] [place] [facility] [address] [id number] [place] [address] Sep, [facility] [place] [facility] [address] [id number] [place] [address] Sep, [facility] [place] [facility] [address] [id number] [place] [address] Sep, [facility] [place] [facility] [address] [id number] [place] [address] Sep, [facility] [place] [facility] [address] [id number] [place] [address] Sep, [facility] [place] [facility] [address] [id number] [place] [address] Sep, [facility] [place] [facility] [address] [id number] [place] [address] Aug, [facility] [place] [facility] [address] [id number] [place] [address] Aug, [facility] [place] [facility] [address] [id number], [place] [address] 29 Aug, 2012 [facility] [place] [facility] [address] [id number] [place] [address] Aug, [facility] [place] [facility] [address] [facility] [id number], [place] [address] Aug, [facility] [place] [facility] [address] [facility] [id number], [place] [address] Aug, [facility] [place] [facility] [address] [id number], [place] [address] 18 Aug, 2012 [facility] [place] [facility] [address] [id number], [place] [address] 17 Aug, 2012 [facility] [place] [facility] [address] [facility] [id number], [place] [address] 16 Aug, 2012 [facility] [place] [facility] [address] [facility] [id number], [place] [address] 16 Aug, 2012 [facility] [place] [facility] [address] [id number], [place] [address] Aug, [facility] [place] [facility] [address] [id number] [place] [address] Aug, [facility] [place] [facility] [address] [id number] [place] [address] Aug, [facility] [place] [facility] [address] [id number] [place] [address] Aug, [facility] [place] [facility] [address] [id number] [place] [address] Aug, [facility] [place] [facility] [address] [id number] [place] [address] 14 Jul, 2012 [facility] [place] [facility] [address] [id number] [place] [address] Jul, [facility] [place] [facility] [address] [facility] [id number] [place] [address] Jun, [facility] [place] [facility] [address] [id number] [place] [address] Jun, [facility] [place] [facility] [address] [id number] [address] May, [facility] [place] [facility] [address] [facility] [id number] [place] [address] May, [facility] [place] [facility] [address] [id number] [place] [address] May, [facility] [place] [facility] [address] [id number], [place] [address] May, [facility] [place] [facility] [address] [id number] [place] [address] May, [facility] [place] [facility] [address] [facility] [id number] [place] [address] May, [facility] [place] [facility] [address] [facility] [id number] [place] [address] Apr, [facility] [place] [facility] [address] [id number] [place] [address] 15 Apr, 2012 [facility] [place] [facility] [address] [id number] [place] [address] March, [facility] [place] [facility] [address] [id number] [place] [address] March, [facility] [place] [facility] [address] [id number] [place] [address] March, [facility] [place] [facility] [address] [id number] [place] [address] March, [facility] [place] [facility] [address] [id number] [place] [address] March, [facility] [place] [facility] [address] [id number] [place] [address] March, [facility] [place] [facility] [address] [id number] [place] [address] Feb, [facility] [place] [facility] [address] [id number] [place] [address] Feb, [facility] [place] [facility] [address] [id number] [place] [address] Feb, [facility] [place] [facility] [address] [id number] [place] [address] Feb, [facility] [place] [facility] [address] [id number] [place] [address] Feb, [facility] [place] [facility] [address] [id number] [place] [address] 19 Feb, 2012 [facility] [place] [facility] [address] [id number] [place] [address] Feb, [facility] [place] [facility] [address] [id number] [place] [address] Feb, [facility] [place] [facility] [address] [id number] [place] [address] 04 Feb, 2012 [facility] [place] [facility] [address] [id number] [place] [address] 30 Jan, 2012 [facility] [place] [facility] [address] [id number] [place] [address] 27 Jan, 2012 [facility] [place] [facility] [address] [id number] [place] [address] Jan, [facility] [place] [facility] [address] [id number] [place] [address] 22 Jan, 2012 [facility] [place] [facility] [address] [id number] [place] [address] 21 Jan, 2012 [facility] [place] [facility] [address] [id number] [place] [address] 20 Jan, 2012 [facility] [place] [facility] [address] [id number] [place] [address] 14 Jan, 2012 [facility] [place] [facility] [address] [id number] [place] [address] Jan, [facility] [place] [facility] [address] [id number] [place] [address] Jan, [facility] [place] [facility] [address] [id number] [place] [address] 08 Jan, 2012 [facility] [place] [facility] [address] [id number] [place] [address] 07 Jan, 2012 [facility] [place] [facility] [address] [id number] [address] 06 Jan, 2012 [facility] [place] [facility] [address] [id number] [place] [address] Jan, [facility] [place] [facility] [address] [id number] [place] [address] Jan, [facility] [place] [facility] [address] [id number] [place] [address] Dec, [facility] [place] [facility] [address] [id number] [place] [address] 27 Dec, 2011 [facility] [place] [facility] [address] [id number] [place] [address] Dec, [facility] [place] [facility] [address] [id number] [place] [address] 23 Dec, 2011 [facility] [place] [facility] [address] [id number] [place] [address] 16 Dec, 2011 [facility] [place] [facility] [address] [id number] [place] [address] 08 Dec, 2011 [facility] [place] [facility] [address] [id number] [place] [address] 08 Dec, 2011 [facility] [place] [facility] [address] [facility] [id number] [place] [address] Dec, [facility] [place] [facility] [address] [facility] [id number] [place] [address] 07 Dec, 2011 [facility] [place] [facility] [address] [facility] [id number] [place] [address] Nov, [facility] [place] [facility] [address] [facility] [id number] [place] [address] Nov, [facility] [place] [facility] [address] [facility] [id number] [place] [address] Nov, [facility] [place] [facility] [address] [facility] [id number] [place] [address] Nov, [facility] [place] [facility] [address] [id number] [place] [address] Oct, [facility] [place] [facility] [address] [facility] [id number] [place] [address] Oct, [facility] [place] [facility] [address] [facility] [id number] [place] [address] Oct, [facility] [place] [facility] [address] [facility] [id number] [place] [address] Oct, [facility] [place] [facility] [address] [id number] [place] [address] Oct, [facility] [place] [facility] [address] [id number] [place] [address] Oct, [facility] [place] [facility] [address] [facility] [id number] [place] [address] Oct, [facility] [place] [facility] [address] [id number], [place] [address] Sep, [facility] [place] [facility] [address] [id number] [place] [address] Sep, [facility] [place] [facility] [address] [id number], [place] [address] Sep, [facility] [place] [facility] [address] [id number] [place] [address] Sep, [facility] [place] [facility] [address] [id number], [place] [address] Sep, [facility] [place] [facility] [address] [id number], [place] [address] Sep, [facility] [place] [facility] [address] [id number], [place] [address] Sep, [facility] [place] [facility] [address] [id number], [place] [address] Sep, [facility] [place] [facility] [address] [id number], [place] [address] Sep, [facility] [place] [facility] [address] [id number], [place] [address] Aug, [facility] [place] [facility] [address] [id number], [place] [address] Aug, [facility] [place] [facility] [address] [id number], [place] [address] Aug, [facility] [place] [facility] [address] [id number] [place] [address] May, [facility] [address] [id number] [place] [address] 13 Nov, 2010 [facility] [address] [id number] [place] [address] 31 Oct, 2010 [facility] [address] [id number] [place] [address] 30 Oct, 2010 [facility] [address] [id number] [place] [address] 30 Oct, 2010 [facility] [address] [id number] [place] [address] Oct, [facility] [address] [id number] [place] [address] Oct, [facility] [address] [id number] [place] [address] Sep, [facility] [address] [id number] [place] [address] Sep, [facility] [address] [id number] [place] [address] 14 Jul, 2010 [facility] [address] [facility] [id number] [place] [address] 31 Oct, 2009 [facility] [address] [id number] [place] [address] Oct, [facility] [address] [id number] [place] [address] 04 Oct, 2009 [facility] [place] [facility] [address] [id number] [place] [address] 03 Oct, 2009 [facility] [place] [facility] [address] [id number] [place] [address] 30 Sep, 2009 [facility] [address] [id number] [place] [address] 13 Sep, 2009 [facility] [address] [facility] [id number], [place] [address] Sep, [facility] [address] [id number], [place] [address] Sep, [facility] [address] [id number], [place] [address] Sep, [facility] [id number], [place] [address] Jul, [facility] [address] [id number], [place] [address] Apr, [facility] [address] [id number], [place] [address] Dec, IMMUNIZATIONS No Known Immunizations SOCIAL HISTORY [...]
--- OUTSIDE RECORDS SUMMARY | 2019-06-14 11:13 | XMS REPORT ---
Author Author ETELVINA LEONARD Organization [facility] Address [address] [place] [address] Care Team Providers Care Coroner Name Role Phone ETELVINA LEONARD Unavailable PROBLEMS Type Condition ICD9-CM Code OIP78-AW Code Onset Dates Condition Status SNOMED Code Problem Acquired hypothyroidism E03.9 Active 431590325 Problem Prediabetes R73.03 Active 566884887 Problem Essential hypertension I10 Active 76970092 Problem Mixed hyperlipidemia E78.2 Active 932468595 Problem Gastroesophageal reflux disease, esophagitis presence not specified K21.9 Active 776437788 Problem Reactive depression F32.9 Active 70165341 Problem Lumbago with sciatica, right side M54.41 Active [id number] Problem Lumbago with sciatica, left side M54.42 Active 608278095 Problem Cigarette nicotine dependence without complication F17.210 Active 48855622 Problem DM neuro manif type II E11.49 Active 23387589 Problem Seizures R56.9 Active 90597111 Problem Adjustment disorder with disturbance of emotion F43.29 Active 74172221 Problem Chronic obstructive pulmonary disease, unspecified COPD type J44.9 Active 20289801 Problem Major depressive disorder, recurrent, moderate F33.1 Active 625574364 Problem Other chronic pain G89.29 Active 06060393 Problem Iron deficiency anemia due to chronic blood loss D50.0 Active 857141392 Problem Seasonal allergies J30.2 Active 776797552 Problem Sinusitis J32.9 Active 80992185 Problem Chronic pain G89.29 Active 56255012 ALLERGIES No Information ENCOUNTERS Encounter Location Date Diagnosis [facility] [address], [place] [address] May, [facility] [address] [address] May, [facility] [address] [place] [id number] [place] [address] May, [place] [address] [address] Apr, [place] [address] [id number] [place] [address] 18 Apr, 2019 Type 2 diabetes mellitus with hyperglycemia E11.65 [place] [address] [address] 17 Apr, 2019 Type 2 diabetes mellitus with hyperglycemia E11.65 [place] [address] [address] 14 Apr, 2019 Major depressive disorder, recurrent, moderate F33.1 and Adjustment disorder with disturbance of emotion F43.29 [place] [address] [address] Apr, [place] [address] [address] Apr, Diarrhea, unspecified type R19.7 [place] [address] [place] [id number] [place] [address] Apr, Low back pain M54.5 ; Other chronic pain G89.29 and Anemia, unspecified type D64.9 [place] [id number] [place] [address] Apr, [place] [address] [address] Apr, Diarrhea, unspecified type R19.7 and Lumbar radiculopathy, chronic M54.16 [facility] [place] [address] [address] March, Non-intractable vomiting with nausea, unspecified vomiting type R11.2 and Muscle cramps R25.2 [place] [id number] [place] [address] March, [place] [address], [place] [address] 17 Mar, 2019 Other chronic pain G89.29 [facility] [id number] [place] [address] March, Type 2 diabetes mellitus with hyperglycemia E11.65 ; Flank pain R10.9 ; Acute cystitis without hematuria N30.00 ; Chronic obstructive pulmonary disease, unspecified COPD type J44.9 and Moderate episode of recurrent major depressive disorder F33.1 [facility] [id number] [place] [address] March, [facility] [id number] [place] [address] March, Wheezing R06.2 and Viral upper respiratory tract infection J06.9 [place] [id number] [place] [address] Feb, [facility] [id number] [place] [address] Feb, [facility] [id number] [place] [address] Jan, [facility] [id number] [place] [address] Jan, Acute cystitis with hematuria N30.[address] [facility] [id number] [place] [address] Jan, [facility] [id number] [place] [address] Dec, [facility] [id number] [place] [address] Dec, [facility] [id number] [place] [address] Dec, [facility] [id number] [place] [address] Dec, [facility] [address] [id number], [place] [address] Dec, Routine adult health maintenance Z00.00 ; Chronic obstructive pulmonary disease, unspecified COPD type J44.9 and Encounter for immunization Z23 [facility] [address], [place] [address] Nov, [facility] [id number] [place] [address] Nov, UTI (urinary tract infection) N39.0 and Other chronic pain G89.29 [facility] [id number] [place] [address] Nov, [facility] [id number] [place] [address] Nov, [facility] [id number] [place] [address] Nov, Painful urination R30.9 and UTI (urinary tract infection) N39.0 [facility] [address] [address] Nov, [facility] [address], [place] [address] Nov, UTI (urinary tract infection) N39.0 [facility] [address], [place] [address] Nov, Dysuria R30.0 ; UTI (urinary tract infection) N39.0 and Chronic pain G89.29 [facility] [address] [id number] [address] Nov, [facility] [address] [place] [address] Oct, Cough R05 [facility] [address], [place] [address] 14 Oct, 2018 Sinusitis J32.9 [place] [id number] [place] [address] Oct, [place] [address] [address] Oct, UTI (urinary tract infection) N39.0 and URI (upper respiratory infection) J06.9 [place] [id number] [place] [address] Sep, Pain in thoracic spine M54.6 [place] [id number] [place] [address] Sep, Type 2 diabetes mellitus with hyperglycemia E11.65 [place] [id number] [place] [address] Sep, Chronic obstructive pulmonary disease, unspecified COPD type J44.9 ; Abrasion of right ear canal, initial encounter S00.411A ; Cigarette nicotine dependence without complication F17.210 ; Right leg pain M79.604 and Seasonal allergies J30.2 [place] [id number] [place] [address] Aug, [place] [address] [id number] [place] [address] Aug, [place] [id number] [place] [address] Aug, Pain in thoracic spine M54.6 [place] [id number] [place] [address] Aug, [place] [id number] [place] [address] Aug, Chronic obstructive pulmonary disease, unspecified COPD type J44.9 ; Complete amputation of right foot, 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 ; Cigarette nicotine dependence without complication F17.210 and BMI 40.0-44.9, adult Z68.41 [place] [id number] [place] [address] Jul, [place] [address] [id number] [place] [address] Jul, [place] [address] [address] Jul, Onychomycosis B35.1 ; Onychocryptosis L60.0 and DM neuro manif type II E11.49 [place] [address] [address] Jun, Pain in thoracic spine M54.6 [place] [address] [address] Jun, Iron deficiency anemia due to chronic blood loss D50.0 and Hematochezia K92.1 [place] [address] [address] Jun, Gastroenteritis K52.9 and Abnormal RBC indices R71.8 [place] [address] [address] Jun, [place] [address] [address] Jun, Chest congestion R09.89 and Seizures R56.9 [place] [address] [address] May, Pain in thoracic spine M54.6 [place] [id number] [place] [address] May, [place] [id number] [place] [address] May, [place] [address] [address] May, [place] [address] [address] May, Acute non-recurrent frontal sinusitis J01.10 and Dermatitis L30.9 [place] [address], [place] [address] May, [facility] [id number] [place] [address] May, Pain in thoracic spine M54.6 [facility] [address] [place] [address] May, [facility] [id number] [place] [address] May, Acute nasopharyngitis J00 [facility] [id number] [place] [address] May, [facility] [id number] [place] [address] May, [facility] [id number] [place] [address] Apr, [facility] [id number] [place] [address] Apr, [facility] [address] [place] [address] Apr, [facility] [address], [place] [address] Apr, [facility] [address] [place] [address] Apr, Pain in right ankle and joints of right foot M25.571 [facility] [address], [place] [address] Apr, [facility] [id number] [place] [address] Apr, Bronchitis J40 ; Pain in right ankle and joints of right foot M25.571 ; Other chronic pain G89.29 ; Prediabetes R73.03 ; Chronic obstructive pulmonary disease, unspecified COPD type J44.9 and Cigarette nicotine dependence without complication F17.210 [facility] [id number] [place] [address] 13 Apr, 2018 Seasonal allergic rhinitis, unspecified trigger J30.2 [place] [id number] [place] [address] 08 Apr, 2018 Onychomycosis B35.1 ; Onychocryptosis L60.0 and DM neuro manif type II E11.[address] [address] Apr, Reactive depression F32.9 ; Thoracic myofascial strain, initial encounter S29.019A and Leg cramps R25.[address] [address] March, [place] [address] [address] March, Type 2 diabetes mellitus with hyperglycemia E11.65 [place] [address] [address] March, Reactive depression F32.[address] [address] March, Pain in thoracic spine M54.6 and Other chronic pain G89.29 [place] [address] [address] Feb, [place] [address] [address] Jan, Reactive depression F32.9 ; Essential hypertension I10 ; Gastroesophageal reflux disease, esophagitis presence not specified K21.9 ; Lumbago with sciatica, left side M54.42 and Lumbago with sciatica, right side M54.41 [place] [id number] [place] [address] Jan, Reactive depression F32.9 and Pharyngoesophageal dysphagia R13.14 [place] [id number] [address] Jan, [place] [address] [address] Jan, Encounter for immunization Z23 [place] [address] [address] Jan, Onychomycosis B35.1 and DM neuro manif type II E11.49 [place] [address] [address] Jan, [place] [address] [address] Jan, Prediabetes R73.03 [place] [address] [address] Dec, [place] [address] [address] Dec, Essential hypertension I10 ; Mixed hyperlipidemia E78.2 ; Acquired hypothyroidism E03.9 ; Reactive depression F32.9 and Prediabetes R73.03 [place] [address] [address] Dec, [place] [address] [address] Dec, [place] [address] [address] Dec, DM neuro manif type II E11.49 [facility] [address] [address] Dec, Bruise T14.8XXA ; Type 2 diabetes mellitus with hyperglycemia E11.65 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 [id number] [place] [address] Jun, [facility] [id number] [address] Jun, [facility] [id number] [place] [address] Jun, COPD with acute exacerbation 491.21 [facility] [id number] [place] [address] Apr, [facility] [id number] [place] [address] Feb, [facility] [id number] [place] [address] Feb, [facility] [id number] [address] Jan, [facility] [address], [place] [address] Jan, [facility] [id number] [address] Jan, [facility] [address], [place] [address] Jan, [facility] [address], [place] [address] Jan, [facility] [address], [place] [address] Jan, [facility] [address], [place] [address] Jan, [facility] [address], [place] [address] Jan, [facility] [id number] [place] [address] 23 Jan, 2014 [facility] [place] [facility] [address] [id number] [place] [address] 19 Jan, 2014 [facility] [place] [facility] [address] [id number] [place] [address] 19 Jan, 2014 [facility] [place] [facility] [address] [id number] [place] [address] 18 Jan, 2014 [facility] [place] [facility] [address] [id number] [place] [address] 18 Jan, 2014 [facility] [place] [facility] [address] [id number] [place] [address] 16 Jan, 2014 [facility] [place] [facility] [address] [id number] [place] [address] 16 Jan, 2014 [facility] [place] [facility] [address] [id number] [place] [address] 16 Jan, 2014 [facility] [place] [facility] [address] [id number] [place] [address] 16 Jan, 2014 [facility] [place] [facility] [address] [id number] [place] [address] 15 Jan, 2014 [facility] [place] [facility] [address] [id number] [place] [address] 13 Jan, 2014 [facility] [place] [facility] [address] [id number] [place] [address] 13 Jan, 2014 [facility] [place] [facility] [address] [id number] [place] [address] 13 Jan, 2014 [facility] [place] [facility] [address] [id number] [place] [address] 13 Jan, 2014 [facility] [place] [facility] [address] [id number] [place] [address] 12 Jan, 2014 [facility] [place] [facility] [address] [id number] [place] [address] Jan, [facility] [place] [facility] [address] [id number] [place] [address] Jan, [facility] [place] [facility] [address] [id number] [place] [address] Dec, [facility] [place] [facility] [address] [id number] [place] [address] Dec, [facility] [place] [facility] [address] [id number] [place] [address] Dec, [facility] [place] [facility] [address] [id number] [place] [address] Dec, [facility] [place] [facility] [address] [id number] [place] [address] Dec, [facility] [place] [facility] [address] [id number] [place] [address] Dec, [facility] [place] [facility] [address] [id number] [place] [address] Dec, [facility] [place] [facility] [address] [id number] [place] [address] Dec, [facility] [place] [facility] [address] [id number] [place] [address] Dec, [facility] [place] [facility] [address] [id number] [place] [address] Dec, [facility] [place] [facility] [address] [id number] [place] [address] Dec, [facility] [place] [facility] [address] [id number] [place] [address] Dec, [facility] [place] [facility] [address] [id number] [place] [address] Nov, [facility] [place] [facility] [address] [id number] [place] [address] Nov, [facility] [place] [facility] [address] [id number] [place] [address] Nov, [facility] [address] [id number] [place] [address] Nov, [facility] [place] [facility] [address] [id number] [place] [address] Nov, [facility] [address] [id number] [place] [address] Nov, [facility] [address] [id number] [place] [address] Nov, [facility] [address] [id number] [place] [address] Nov, [facility] [address] [id number] [place] [address] Nov, [facility] [address] [id number] [place] [address] Nov, [facility] [address] [id number] [place] [address] Nov, [facility] [address] [id number] [place] [address] Nov, [facility] [address] [id number] [place] [address] Oct, [facility] [address] [id number] [place] [address] Oct, [facility] [address] [id number] [place] [address] Oct, [facility] [place] [facility] [address] [id number] [place] [address] Oct, [facility] [place] [facility] [address] [id number] [place] [address] Oct, [facility] [address] [id number] [place] [address] Oct, [facility] [place] [facility] [address] [id number] [place] [address] Oct, [facility] [place] [facility] [address] [id number] [place] [address] Oct, [facility] [place] [facility] [address] [id number] [place] [address] 17 Oct, 2014 [facility] [place] [facility] [address] [id number] [place] [address] 17 Oct, 2014 [facility] [place] [facility] [address] [id number] [place] [address] 16 Oct, 2014 [facility] [place] [facility] [address] [id number] [place] [address] 16 Oct, 2014 [facility] [place] [facility] [address] [id number] [place] [address] 15 Oct, 2014 [facility] [place] [facility] [address] [id number] [place] [address] 15 Oct, 2014 [facility] [place] [facility] [address] [id number] [place] [address] Oct, [facility] [place] [facility] [address] [id number] [place] [address] Sep, [facility] [place] [facility] [address] [id number] [place] [address] Sep, [facility] [place] [facility] [address] [id number], [place] [address] Sep, [facility] [place] [facility] [address] [id number] [place] [address] Sep, [facility] [place] [facility] [address] [id number] [place] [address] Aug, [facility] [place] [facility] [address] [id number], [place] [address] Aug, [facility] [place] [facility] [address] [id number], [place] [address] Aug, [facility] [place] [facility] [address] [id number] [place] [address] Aug, [facility] [place] [facility] [address] [id number] [place] [address] Aug, [facility] [place] [facility] [address] [id number] [place] [address] Aug, [facility] [place] [facility] [address] [id number] [place] [address] 29 Jul, 2014 [facility] [place] [facility] [address] [id number] [place] [address] 29 Jul, 2014 [facility] [place] [facility] [address] [id number] [place] [address] 15 Jul, 2014 [facility] [place] [facility] [address] [id number] [place] [address] 15 Jul, 2014 [facility] [place] [facility] [address] [id number] [place] [address] 08 Jul, 2014 [facility] [place] [facility] [address] [id number] [place] [address] 08 Jul, 2014 [facility] [place] [facility] [address] [id number] [place] [address] Jun, [facility] [place] [facility] [address] [id number] [place] [address] Jun, [facility] [place] [facility] [address] [id number], [place] [address] Jun, [facility] [place] [facility] [address] [id number] [place] [address] Jun, [facility] [place] [facility] [address] [id number] [place] [address] Jun, [facility] [place] [facility] [address] [id number] [place] [address] Jun, [facility] [place] [facility] [address] [id number] [place] [address] Jun, [facility] [place] [facility] [address] [id number] [place] [address] May, [facility] [place] [facility] [address] [id number] [place] [address] May, [facility] [place] [facility] [address] [id number] [place] [address] May, [facility] [place] [facility] [address] [id number] [place] [address] May, [facility] [place] [facility] [address] [id number] [place] [address] May, [facility] [place] [facility] [address] [id number] [place] [address] May, [facility] [place] [facility] [address] [id number] [place] [address] May, [facility] [place] [facility] [address] [id number] [place] [address] May, [facility] [place] [facility] [address] [id number] [place] [address] May, [facility] [place] [facility] [address] [id number] [place] [address] May, [facility] [place] [facility] [address] [id number] [place] [address] May, [facility] [place] [facility] [address] [id number] [place] [address] May, [facility] [place] [facility] [address] [id number] [place] [address] Apr, [facility] [place] [facility] [address] [id number] [place] [address] Apr, [facility] [place] [facility] [address] [id number] [place] [address] Apr, [facility] [place] [facility] [address] [id number] [place] [address] Apr, [facility] [place] [facility] [address] [id number] [place] [address] Apr, [facility] [place] [facility] [address] [id number] [place] [address] Apr, [facility] [place] [facility] [address] [id number] [place] [address] Apr, [facility] [place] [facility] [address] [id number] [place] [address] Apr, [facility] [place] [facility] [address] [id number] [place] [address] Apr, [facility] [place] [facility] [address] [id number] [place] [address] Apr, [facility] [place] [facility] [address] [id number] [place] [address] March, [facility] [place] [facility] [address] [id number] [place] [address] March, [facility] [place] [facility] [address] [id number] [place] [address] March, [facility] [place] [facility] [address] [id number] [place] [address] March, [facility] [place] [facility] [address] [id number] [place] [address] March, [facility] [place] [facility] [address] [id number] [place] [address] March, [facility] [place] [facility] [address] [id number] [place] [address] Feb, [facility] [place] [facility] [address] [id number] [place] [address] Feb, [facility] [place] [facility] [address] [id number] [place] [address] Feb, [facility] [place] [facility] [address] [id number] [place] [address] Feb, [facility] [place] [facility] [address] [id number] [place] [address] Feb, [facility] [place] [facility] [address] [id number] [place] [address] Feb, [facility] [place] [facility] [address] [id number] [place] [address] Feb, [facility] [place] [facility] [address] [id number] [place] [address] Feb, [facility] [place] [facility] [address] [id number] [place] [address] Feb, [facility] [place] [facility] [address] [id number] [place] [address] Feb, [facility] [place] [facility] [address] [id number] [place] [address] Jan, [facility] [place] [facility] [address] [id number] [place] [address] Jan, [facility] [place] [facility] [address] [id number] [place] [address] Jan, [facility] [place] [facility] [address] [id number] [place] [address] Jan, [facility] [place] [facility] [address] [id number] [place] [address] Jan, [facility] [place] [facility] [address] [id number] [place] [address] Jan, [facility] [place] [facility] [address] [id number] [place] [address] Jan, [facility] [place] [facility] [address] [id number] [place] [address] Jan, [facility] [place] [facility] [address] [id number] [place] [address] Dec, [facility] [place] [facility] [address] [id number] [place] [address] Dec, [facility] [place] [facility] [address] [id number] [place] [address] Dec, [facility] [place] [facility] [address] [id number] [place] [address] Dec, [facility] [place] [facility] [address] [id number] [place] [address] Dec, [facility] [place] [facility] [address] [id number] [place] [address] Dec, [facility] [place] [facility] [address] [id number] [place] [address] Dec, [facility] [place] [facility] [address] [id number] [place] [address] Dec, [facility] [place] [facility] [address] [id number] [place] [address] Nov, [facility] [place] [facility] [address] [id number] [place] [address] Nov, [facility] [place] [facility] [address] [id number] [place] [address] Nov, [facility] [place] [facility] [address] [id number] [place] [address] Nov, [facility] [place] [facility] [address] [id number] [place] [address] Nov, [facility] [place] [facility] [address] [id number] [place] [address] Nov, [facility] [place] [facility] [address] [id number] [place] [address] Nov, [facility] [place] [facility] [address] [id number] [place] [address] Nov, [facility] [address] [id number] [place] [address] Nov, [facility] [place] [facility] [address] [id number] [place] [address] Nov, [facility] [address] [id number] [place] [address] Nov, [facility] [place] [facility] [address] [id number] [place] [address] Oct, [facility] [place] [facility] [address] [id number] [place] [address] Oct, [facility] [place] [facility] [address] [id number] [place] [address] Oct, [facility] [address] [facility] [id number] [place] [address] Oct, [facility] [place] [facility] [address] [id number] [place] [address] Sep, [facility] [place] [facility] [address] [id number] [place] [address] Sep, [facility] [place] [facility] [address] [facility] [id number] [place] [address] Sep, [facility] [place] [facility] [address] [id number] [place] [address] Sep, [facility] [place] [facility] [address] [id number], [place] [address] Aug, [facility] [place] [facility] [address] [id number] [place] [address] Aug, [facility] [place] [facility] [address] [facility] [id number] [place] [address] Aug, [facility] [place] [facility] [address] [id number] [place] [address] Aug, [facility] [place] [facility] [address] [id number] [place] [address] Aug, [facility] [place] [facility] [address] [id number] [place] [address] Aug, [facility] [place] [facility] [address] [id number] [place] [address] Aug, [facility] [place] [facility] [address] [id number] [place] [address] Aug, [facility] [address] [id number] [place] [address] 28 Jul, 2013 [facility] [place] [facility] [address] [id number] [place] [address] 27 Jul, 2013 [facility] [address] [id number] [place] [address] 26 Jul, 2012 [facility] [place] [facility] [address] [id number] [place] [address] 24 Jul, 2012 [facility] [place] [facility] [address] [id number] [place] [address] 24 Jul, 2013 [facility] [place] [facility] [address] [id number] [place] [address] 23 Jul, 2013 [facility] [place] [facility] [address] [id number] [place] [address] 19 Jul, 2012 [facility] [place] [facility] [address] [id number], [place] [address] 18 Sep, 2012 [facility] [place] [facility] [address] [id number] [place] [address] 17 Sep, 2012 [facility] [place] [facility] [address] [id number] [place] [address] 16 Sep, 2012 [facility] [place] [facility] [address] [id number] [place] [address] 13 Sep, 2012 [facility] [place] [facility] [address] [id number] [place] [address] Jul, [facility] [place] [facility] [address] [id number] [place] [address] Jul, [facility] [place] [facility] [address] [id number] [place] [address] Jul, [facility] [place] [facility] [address] [id number] [place] [address] Jul, [facility] [place] [facility] [address] [id number] [place] [address] Jun, [facility] [place] [facility] [address] [id number] [place] [address] Jun, [facility] [place] [facility] [address] [id number] [place] [address] Jun, [facility] [place] [facility] [address] [id number] [place] [address] May, [facility] [place] [facility] [address] [id number] [place] [address] May, [facility] [place] [facility] [address] [id number] [place] [address] May, [facility] [place] [facility] [address] [id number] [place] [address] May, [facility] [place] [facility] [address] [id number] [place] [address] Apr, [facility] [place] [facility] [address] [id number] [place] [address] Apr, [facility] [place] [facility] [address] [id number] [place] [address] Apr, [facility] [place] [facility] [address] [id number] [place] [address] Apr, [facility] [place] [facility] [address] [id number] [place] [address] March, [facility] [place] [facility] [address] [id number] [place] [address] March, [facility] [address] [id number] [place] [address] March, [facility] [address] [id number] [place] [address] Feb, [facility] [address] [id number] [place] [address] Feb, [facility] [address] [id number] [place] [address] Jan, [facility] [address] [id number] [place] [address] Jan, [facility] [address] [facility] [id number] [place] [address] Jan, [facility] [address] [id number] [place] [address] Jan, [facility] [address] [id number] [place] [address] Jan, [facility] [address] [id number] [place] [address] Dec, [facility] [address] [facility] [id number] [place] [address] Dec, [facility] [address] [id number] [place] [address] Dec, [facility] [address] [id number] [place] [address] Dec, [facility] [place] [facility] [address] [id number] [place] [address] Dec, [facility] [address] [id number] [place] [address] 06 Dec, 2012 [facility] [address] [id number] [place] [address] 04 Dec, 2012 [facility] [address] [id number] [place] [address] Dec, [facility] [place] [facility] [address] [id number] [place] [address] Nov, [facility] [address] [id number] [place] [address] Nov, [facility] [place] [facility] [address] [id number] [place] [address] Nov, [facility] [address] [id number] [place] [address] Nov, [facility] [address] [id number] [place] [address] Nov, [facility] [address] [id number] [place] [address] Nov, [facility] [address] [id number] [place] [address] Nov, [facility] [address] [id number] [place] [address] Oct, [facility] [address] [id number] [place] [address] Oct, [facility] [address] [id number] [place] [address] Oct, [facility] [place] [facility] [address] [id number] [place] [address] Oct, [facility] [place] [facility] [address] [id number] [place] [address] Oct, [facility] [place] [facility] [address] [id number] [place] [address] Oct, [facility] [place] [facility] [address] [id number] [place] [address] Oct, [facility] [place] [facility] [address] [id number] [place] [address] Oct, [facility] [place] [facility] [address] [id number] [place] [address] Sep, [facility] [place] [facility] [address] [id number] [place] [address] Sep, [facility] [place] [facility] [address] [id number] [place] [address] Sep, [facility] [place] [facility] [address] [id number] [place] [address] Sep, [facility] [place] [facility] [address] [id number] [place] [address] Sep, [facility] [place] [facility] [address] [id number] [place] [address] Sep, [facility] [place] [facility] [address] [id number] [place] [address] Sep, [facility] [place] [facility] [address] [id number] [place] [address] Sep, [facility] [place] [facility] [address] [id number] [place] [address] Sep, [facility] [place] [facility] [address] [id number] [place] [address] Sep, [facility] [place] [facility] [address] [id number] [place] [address] Sep, [facility] [place] [facility] [address] [id number] [place] [address] Sep, [facility] [place] [facility] [address] [id number] [place] [address] Sep, [facility] [place] [facility] [address] [id number] [place] [address] Sep, [facility] [place] [facility] [address] [id number] [place] [address] Sep, [facility] [place] [facility] [address] [id number] [place] [address] Sep, [facility] [place] [facility] [address] [id number] [place] [address] Sep, [facility] [place] [facility] [address] [id number] [place] [address] Sep, [facility] [place] [facility] [address] [id number] [place] [address] Sep, [facility] [place] [facility] [address] [id number] [place] [address] Sep, [facility] [place] [facility] [address] [id number] [place] [address] Aug, [facility] [place] [facility] [address] [id number] [place] [address] Aug, [facility] [place] [facility] [address] [id number], [place] [address] 29 Aug, 2012 [facility] [place] [facility] [address] [id number] [place] [address] Aug, [facility] [place] [facility] [address] [facility] [id number], [place] [address] Aug, [facility] [place] [facility] [address] [facility] [id number], [place] [address] Aug, [facility] [place] [facility] [address] [id number], [place] [address] 18 Aug, 2012 [facility] [place] [facility] [address] [id number], [place] [address] 17 Aug, 2012 [facility] [place] [facility] [address] [facility] [id number], [place] [address] 16 Aug, 2012 [facility] [place] [facility] [address] [facility] [id number], [place] [address] 16 Aug, 2012 [facility] [place] [facility] [address] [id number], [place] [address] Aug, [facility] [place] [facility] [address] [id number] [place] [address] Aug, [facility] [place] [facility] [address] [id number] [place] [address] Aug, [facility] [place] [facility] [address] [id number] [place] [address] Aug, [facility] [place] [facility] [address] [id number] [place] [address] Aug, [facility] [place] [facility] [address] [id number] [place] [address] 14 Jul, 2012 [facility] [place] [facility] [address] [id number] [place] [address] Jul, [facility] [place] [facility] [address] [facility] [id number] [place] [address] Jun, [facility] [place] [facility] [address] [id number] [place] [address] Jun, [facility] [place] [facility] [id number] [place] [address] May, [facility] [place] [facility] [address] [facility] [id number] [place] [address] May, [facility] [place] [facility] [address] [id number] [place] [address] May, [facility] [place] [facility] [address] [id number], [place] [address] May, [facility] [place] [facility] [address] [id number] [place] [address] May, [facility] [place] [facility] [address] [facility] [id number] [place] [address] May, [facility] [place] [facility] [address] [facility] [id number] [place] [address] Apr, [facility] [place] [facility] [address] [id number] [place] [address] 15 Apr, 2012 [facility] [place] [facility] [address] [id number] [place] [address] March, [facility] [place] [facility] [address] [id number] [place] [address] March, [facility] [place] [facility] [address] [id number] [place] [address] March, [facility] [place] [facility] [address] [id number] [place] [address] March, [facility] [place] [facility] [address] [id number] [place] [address] March, [facility] [place] [facility] [address] [id number] [place] [address] March, [facility] [place] [facility] [address] [id number] [place] [address] Feb, [facility] [place] [facility] [address] [id number] [place] [address] Feb, [facility] [place] [facility] [address] [id number] [place] [address] Feb, [facility] [place] [facility] [address] [id number] [place] [address] Feb, [facility] [place] [facility] [address] [id number] [place] [address] Feb, [facility] [place] [facility] [address] [id number] [place] [address] 19 Feb, 2012 [facility] [place] [facility] [address] [id number] [place] [address] Feb, [facility] [place] [facility] [address] [id number] [place] [address] Feb, [facility] [place] [facility] [address] [id number] [place] [address] 04 Feb, 2012 [facility] [place] [facility] [address] [id number] [place] [address] 30 Jan, 2012 [facility] [place] [facility] [address] [id number] [place] [address] 27 Jan, 2012 [facility] [place] [facility] [address] [id number] [place] [address] Jan, [facility] [place] [facility] [address] [id number] [place] [address] 22 Jan, 2012 [facility] [place] [facility] [address] [id number] [place] [address] 21 Jan, 2012 [facility] [place] [facility] [address] [id number] [place] [address] 20 Jan, 2012 [facility] [place] [facility] [address] [id number] [place] [address] 14 Jan, 2012 [facility] [place] [facility] [address] [id number] [place] [address] Jan, [facility] [place] [facility] [address] [id number] [place] [address] Jan, [facility] [place] [facility] [address] [id number] [place] [address] 08 Jan, 2012 [facility] [place] [facility] [address] [id number] [place] [address] 07 Jan, 2012 [facility] [place] [facility] [address] [id number], [place] [address] 06 Jan, 2012 [facility] [place] [facility] [address] [id number] [place] [address] Jan, [facility] [place] [facility] [address] [id number] [place] [address] Jan, [facility] [place] [facility] [address] [id number] [place] [address] Dec, [facility] [place] [facility] [address] [id number] [place] [address] 27 Dec, 2011 [facility] [place] [facility] [address] [id number] [place] [address] Dec, [facility] [place] [facility] [address] [id number] [place] [address] 23 Dec, 2011 [facility] [place] [facility] [address] [id number] [place] [address] 16 Dec, 2011 [facility] [place] [facility] [address] [id number] [place] [address] 08 Dec, 2011 [facility] [place] [facility] [address] [id number] [place] [address] 08 Dec, 2011 [facility] [place] [facility] [address] [facility] [id number] [place] [address] Dec, [facility] [place] [facility] [address] [facility] [id number] [place] [address] 07 Dec, 2011 [facility] [place] [facility] [address] [facility] [id number] [place] [address] Nov, [facility] [place] [facility] [address] [facility] [id number] [place] [address] Nov, [facility] [place] [facility] [address] [facility] [id number] [place] [address] Nov, [facility] [place] [facility] [address] [facility] [id number] [place] [address] Nov, [facility] [place] [facility] [address] [id number] [place] [address] Oct, [facility] [place] [facility] [address] [facility] [id number] [place] [address] Oct, [facility] [place] [facility] [address] [facility] [id number] [place] [address] Oct, [facility] [place] [facility] [address] [facility] [id number] [place] [address] Oct, [facility] [place] [facility] [address] [id number] [place] [address] Oct, [facility] [place] [facility] [address] [id number] [place] [address] Oct, [facility] [place] [facility] [address] [facility] [id number] [place] [address] Oct, [facility] [place] [facility] [address] [id number], [place] [address] Sep, [facility] [place] [facility] [address] [id number] [place] [address] Sep, [facility] [place] [facility] [address] [id number], [place] [address] Sep, [facility] [place] [facility] [address] [id number] [place] [address] Sep, [facility] [place] [facility] [address] [id number], [place] [address] Sep, [facility] [place] [facility] [address] [id number], [place] [address] Sep, [facility] [place] [facility] [address] [id number], [place] [address] Sep, [facility] [place] [facility] [address] [id number], [place] [address] Sep, [facility] [place] [facility] [address] [id number], [place] [address] Sep, [facility] [place] [facility] [address] [id number], [place] [address] Aug, [facility] [place] [facility] [address] [id number], [place] [address] Aug, [facility] [place] [facility] [address] [id number], [place] [address] Aug, [facility] [place] [facility] [address] [id number] [place] [address] May, [facility] [address] [id number] [place] [address] 13 Nov, 2010 [facility] [address] [id number] [place] [address] 31 Oct, 2010 [facility] [address] [id number] [place] [address] 30 Oct, 2010 [facility] [address] [id number] [place] [address] 30 Oct, 2010 [facility] [address] [id number] [place] [address] Oct, [facility] [address] [id number] [place] [address] Oct, [facility] [address] [id number] [place] [address] Sep, [facility] [address] [id number] [place] [address] Sep, [facility] [address] [id number] [place] [address] 14 Jul, 2010 [facility] [address] [facility] [id number] [place] [address] 31 Oct, 2009 [facility] [address] [id number] [place] [address] Oct, [facility] [address] [id number] [place] [address] 04 Oct, 2009 [facility] [place] [facility] [address] [id number] [place] [address] 03 Oct, 2009 [facility] [place] [facility] [address] [id number] [place] [address] 30 Sep, 2009 [facility] [address] [id number] [place] [address] [address], [address] [facility] [address] [facility] [id number], [place] [address] Sep, [facility] [address] [facility] [id number][place] [address] Sep, [facility] [address] [facility] [id number], [place] [address] Sep, [facility] [address] [facility] [id number], [place] [address] Jul, [facility] [address] [facility] [id number], [place] [address] Apr, [facility] [address] [facility] [id number], [place] [address] Dec, IMMUNIZATIONS No Known Immunizations SOCIAL HISTORY Never Assessed REASON FOR VISIT PLAN OF CARE VITAL SIGNS Height 67 in 2015-01-22 Weight 217.2 lbs 2015-01-22 Temperature 97 degrees Fahrenheit 2015-01-22 Heart Rate 84 bpm 2015-01-22 Respiratory Rate 20 2015-01-22 Blood pressure systolic 152 mmHg 2015-01-22 Blood pressure diastolic 98 mmHg 2015-01-22 MEDICATIONS Unknown Medications RESULTS No Results PROCEDURES Procedure Date Ordered Result Body Site GLYCATED HEMOGLOBIN TEST Jan 22, 2015 INSTRUCTIONS MEDICATIONS ADMINISTERED No Known Medications [...]
--- OUTSIDE RECORDS SUMMARY | 2019-06-14 11:14 | XMS REPORT ---
Author Author ETELVINA LEONARD Organization [facility] Address [address] [place] [address] Care Team Providers Care Flat Polisher Name Role Phone ETELVINA LEONARD Unavailable PROBLEMS Type Condition ICD9-CM Code XBM86-KC Code Onset Dates Condition Status SNOMED Code Problem Acquired hypothyroidism E03.9 Active 876044683 Problem Prediabetes R73.03 Active 926022964 Problem Essential hypertension I10 Active 08103844 Problem Mixed hyperlipidemia E78.2 Active 169424049 Problem Gastroesophageal reflux disease, esophagitis presence not specified K21.9 Active 536585088 Problem Reactive depression F32.9 Active 76446733 Problem Lumbago with sciatica, right side M54.41 Active [id number] Problem Lumbago with sciatica, left side M54.42 Active 646124689 Problem Cigarette nicotine dependence without complication F17.210 Active 37706115 Problem DM neuro manif type II E11.49 Active 83567773 Problem Seizures R56.9 Active 41449909 Problem Adjustment disorder with disturbance of emotion F43.29 Active 21878992 Problem Chronic obstructive pulmonary disease, unspecified COPD type J44.9 Active 00540633 Problem Major depressive disorder, recurrent, moderate F33.1 Active 861461808 Problem Other chronic pain G89.29 Active 68461129 Problem Iron deficiency anemia due to chronic blood loss D50.0 Active 059552440 Problem Seasonal allergies J30.2 Active 852991251 Problem Sinusitis J32.9 Active 72806754 Problem Chronic pain G89.29 Active 81727459 ALLERGIES No Information ENCOUNTERS Encounter Location Date Diagnosis [facility] [address], [place] [address] May, [facility] [address], [place] [address] May, [facility] [address] [place] [place] [id number] [place] [address] May, [place] [address] [address] Apr, [place] [address] [id number] [place] [address] 18 Apr, 2019 Type 2 diabetes mellitus with hyperglycemia E11.65 [place] [address] [address] 17 Apr, 2019 Type 2 diabetes mellitus with hyperglycemia E11.65 [place] [address] [address] 14 Apr, 2019 Major depressive disorder, recurrent, moderate F33.1 and Adjustment disorder with disturbance of emotion F43.29 [place] [address] [address] Apr, [place] [address] [address] Apr, Diarrhea, unspecified type R19.7 [place] [id number] [place] [address] Apr, Low back pain M54.5 ; Other chronic pain G89.29 and Anemia, unspecified type D64.9 [place] [id number] [place] [address] Apr, [place] [address] [address] Apr, Diarrhea, unspecified type R19.7 and Lumbar radiculopathy, chronic M54.16 [facility] [place] [address] [address] March, Non-intractable vomiting with nausea, unspecified vomiting type R11.2 and Muscle cramps R25.2 [place] [id number] [place] [address] March, [place] [address], [place] [address] 17 Mar, 2019 Other chronic pain G89.29 [facility] [id number] [place] [address] March, Type 2 diabetes mellitus with hyperglycemia E11.65 ; Flank pain R10.9 ; Acute cystitis without hematuria N30.00 ; Chronic obstructive pulmonary disease, unspecified COPD type J44.9 and Moderate episode of recurrent major depressive disorder F33.1 [facility] [id number] [place] [address] March, [facility] [id number] [place] [address] March, Wheezing R06.2 and Viral upper respiratory tract infection J06.9 [place] [id number] [place] [address] Feb, [facility] [id number] [place] [address] Feb, [facility] [id number] [place] [address] Jan, [facility] [id number] [place] [address] Jan, Acute cystitis with hematuria N30.01 and Dysuria R30.0 [facility] [id number] [place] [address] Jan, [facility] [id number] [place] [address] Dec, [facility] [id number] [place] [address] Dec, [facility] [id number] [place] [address] Dec, [facility] [id number] [place] [address] Dec, [facility] [address] [id number], [place] [address] Dec, Routine adult health maintenance Z00.00 ; Chronic obstructive pulmonary disease, unspecified COPD type J44.9 and Encounter for immunization Z23 [facility] [address], [place] [address] Nov, [facility] [id number] [place] [address] Nov, UTI (urinary tract infection) N39.0 and Other chronic pain G89.29 [facility] [id number] [place] [address] Nov, [facility] [id number] [place] [address] Nov, [facility] [id number] [place] [address] Nov, Painful urination R30.9 and UTI (urinary tract infection) N39.0 [facility] [address], [place] [address] Nov, [facility] [address], [place] [address] Nov, UTI (urinary tract infection) N39.0 [facility] [address], [place] [address] Nov, Dysuria R30.0 ; UTI (urinary tract infection) N39.0 and Chronic pain G89.29 [facility] [id number], [place] [address] Nov, [facility] [id number] [place] [address] Oct, Cough R05 [facility] [address], [place] [address] 14 Oct, 2018 Sinusitis J32.9 [place] [id number] [place] [address] Oct, [place] [address] [address] Oct, UTI (urinary tract infection) N39.0 and URI (upper respiratory infection) J06.9 [place] [id number] [place] [address] Sep, Pain in thoracic spine M54.6 [place] [address] [id number] [place] [address] Sep, Type 2 diabetes mellitus with hyperglycemia E11.65 [place] [address] [place] [id number] [place] [address] Sep, Chronic obstructive pulmonary disease, unspecified COPD type J44.9 ; Abrasion of right ear canal, initial encounter S00.411A ; Cigarette nicotine dependence without complication F17.210 ; Right leg pain M79.604 and Seasonal allergies J30.2 [place] [address] [place] [id number] [place] [address] Aug, [place] [id number] [place] [address] Aug, [place] [address] [address] [id number] [place] [address] Aug, Pain in thoracic spine M54.6 [place] [address] [id number] [place] [address] Aug, [place] [id number] [place] [address] Aug, Chronic obstructive pulmonary disease, unspecified COPD type J44.9 ; Complete amputation of right foot, 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 ; Cigarette nicotine dependence without complication F17.210 and BMI 40.0-44.9, adult Z68.41 [place] [id number] [place] [address] Jul, [place] [address] [id number] [place] [address] Jul, [place] [address] [address] Jul, Onychomycosis B35.1 ; Onychocryptosis L60.0 and DM neuro manif type II E11.49 [place] [address] [address] Jun, Pain in thoracic spine M54.6 [place] [address] [address] Jun, Iron deficiency anemia due to chronic blood loss D50.0 and Hematochezia K92.1 [place] [address] [address] Jun, Gastroenteritis K52.9 and Abnormal RBC indices R71.8 [place] [address] [address] Jun, [place] [address] [address] Jun, Chest congestion R09.89 and Seizures R56.9 [place] [address] [address] May, Pain in thoracic spine M54.6 [place] [address] [id number] [place] [address] May, [place] [address] [id number] [place] [address] May, [place] [address] [address] May, [place] [address] [address] May, Acute non-recurrent frontal sinusitis J01.10 and Dermatitis L30.9 [place] [address], [place] [address] May, [facility] [id number] [place] [address] May, Pain in thoracic spine M54.6 [facility] [address] [place] [address] May, [facility] [id number] [place] [address] May, Acute nasopharyngitis J00 [facility] [id number] [place] [address] May, [facility] [id number] [place] [address] May, [facility] [id number] [place] [address] Apr, [facility] [id number] [place] [address] Apr, [facility] [id number] [place] [address] Apr, [facility] [address], [place] [address] Apr, [facility] [address] [place] [address] Apr, Pain in right ankle and joints of right foot M25.571 [facility] [address], [place] [address] Apr, [facility] [id number] [place] [address] Apr, Bronchitis J40 ; Pain in right ankle and joints of right foot M25.571 ; Other chronic pain G89.29 ; Prediabetes R73.03 ; Chronic obstructive pulmonary disease, unspecified COPD type J44.9 and Cigarette nicotine dependence without complication F17.210 [facility] [id number] [place] [address] 13 Apr, 2018 Seasonal allergic rhinitis, unspecified trigger J30.2 [place] [address] [place] [address] [id number] [place] [address] 08 Apr, 2018 Onychomycosis B35.1 ; Onychocryptosis L60.0 and DM neuro manif type II E11.[address] [address] Apr, Reactive depression F32.9 ; Thoracic myofascial strain, initial encounter S29.019A and Leg cramps R25.[address] [address] March, [place] [address] [address] March, Type 2 diabetes mellitus with hyperglycemia E11.65 [place] [address] [address] March, Reactive depression F32.[address] [address] March, Pain in thoracic spine M54.6 and Other chronic pain G89.29 [place] [address] [address] Feb, [place] [address] [address] Jan, Reactive depression F32.9 ; Essential hypertension I10 ; Gastroesophageal reflux disease, esophagitis presence not specified K21.9 ; Lumbago with sciatica, left side M54.42 and Lumbago with sciatica, right side M54.41 [place] [address] [place] [id number] [place] [address] Jan, Reactive depression F32.9 and Pharyngoesophageal dysphagia R13.14 [place] [id number] [address] Jan, [place] [address] [address] Jan, Encounter for immunization Z23 [place] [address] [address] Jan, Onychomycosis B35.1 and DM neuro manif type II E11.49 [place] [address] [address] Jan, [place] [address] [address] Jan, Prediabetes R73.03 [place] [address] [address] Dec, [place] [address] [address] Dec, Essential hypertension I10 ; Mixed hyperlipidemia E78.2 ; Acquired hypothyroidism E03.9 ; Reactive depression F32.9 and Prediabetes R73.03 [place] [address] [address] Dec, [place] [address] [address] Dec, [place] [address] [address] Dec, DM neuro manif type II E11.49 [facility] [address] [address] Dec, Bruise T14.8XXA ; Type 2 diabetes mellitus with hyperglycemia E11.65 and roasterman current use of insulin Z79.4 [place] [address] [place] [id number] [place] [address] Oct, [place] [address] [address] March, Onychomycosis B35.1 and DM neuro manif type II E11.49 [facility] [id number] [place] [address] Jun, [facility] [address] [address] Jun, [facility] [id number] [place] [address] Jun, COPD with acute exacerbation 491.21 [facility] [id number] [place] [address] Apr, [facility] [id number] [place] [address] Feb, [facility] [id number] [place] [address] Feb, [facility] [address] [address] Jan, [facility] [address], [place] [address] Jan, [facility] [address] [address] Jan, [facility] [address], [place] [address] Jan, [facility] [address], [place] [address] Jan, [facility] [address], [place] [address] Jan, [facility] [address], [place] [address] Jan, [facility] [address], [place] [address] Jan, [facility] [id number] [place] [address] 23 Jan, 2014 [facility] [place] [facility] [address] [id number] [place] [address] 19 Jan, 2014 [facility] [place] [facility] [address] [id number] [place] [address] 19 Jan, 2014 [facility] [place] [facility] [address] [id number] [place] [address] 18 Jan, 2014 [facility] [place] [facility] [address] [id number] [place] [address] 18 Jan, 2014 [facility] [place] [facility] [address] [id number] [place] [address] 16 Jan, 2014 [facility] [place] [facility] [address] [id number] [place] [address] 16 Jan, 2014 [facility] [place] [facility] [address] [id number] [place] [address] 16 Jan, 2014 [facility] [place] [facility] [address] [id number] [place] [address] 16 Jan, 2014 [facility] [place] [facility] [address] [id number] [place] [address] 15 Jan, 2014 [facility] [place] [facility] [address] [id number] [place] [address] 13 Jan, 2014 [facility] [place] [facility] [address] [id number] [place] [address] 13 Jan, 2014 [facility] [place] [facility] [address] [id number] [place] [address] 13 Jan, 2014 [facility] [place] [facility] [address] [id number] [place] [address] 13 Jan, 2014 [facility] [place] [facility] [address] [id number] [place] [address] 12 Jan, 2014 [facility] [place] [facility] [address] [id number] [place] [address] Jan, [facility] [place] [facility] [address] [id number] [place] [address] Jan, [facility] [place] [facility] [address] [id number] [place] [address] Dec, [facility] [place] [facility] [address] [id number] [place] [address] Dec, [facility] [place] [facility] [address] [id number] [place] [address] Dec, [facility] [place] [facility] [address] [id number] [place] [address] Dec, [facility] [place] [facility] [address] [id number] [place] [address] Dec, [facility] [place] [facility] [address] [id number] [place] [address] Dec, [facility] [place] [facility] [address] [id number] [place] [address] Dec, [facility] [place] [facility] [address] [id number] [place] [address] Dec, [facility] [place] [facility] [address] [id number] [place] [address] Dec, [facility] [place] [facility] [address] [id number] [place] [address] Dec, [facility] [place] [facility] [address] [id number] [place] [address] Dec, [facility] [place] [facility] [address] [id number] [place] [address] Dec, [facility] [place] [facility] [address] [id number] [place] [address] Nov, [facility] [place] [facility] [address] [id number] [place] [address] Nov, [facility] [place] [facility] [address] [id number] [place] [address] Nov, [facility] [address] [id number] [place] [address] Nov, [facility] [place] [facility] [address] [id number] [place] [address] Nov, [facility] [address] [id number] [place] [address] Nov, [facility] [address] [id number] [place] [address] Nov, [facility] [address] [id number] [place] [address] Nov, [facility] [address] [id number] [place] [address] Nov, [facility] [address] [id number] [place] [address] Nov, [facility] [address] [id number] [place] [address] Nov, [facility] [address] [id number] [place] [address] Nov, [facility] [address] [id number] [place] [address] Oct, [facility] [address] [id number] [place] [address] Oct, [facility] [address] [id number] [place] [address] Oct, [facility] [place] [facility] [address] [id number] [place] [address] Oct, [facility] [place] [facility] [address] [id number] [place] [address] Oct, [facility] [address] [id number] [place] [address] Oct, [facility] [place] [facility] [address] [id number] [place] [address] Oct, [facility] [place] [facility] [address] [id number] [place] [address] Oct, [facility] [place] [facility] [address] [id number] [place] [address] 17 Oct, 2014 [facility] [place] [facility] [address] [id number] [place] [address] 17 Oct, 2014 [facility] [place] [facility] [address] [id number] [place] [address] 16 Oct, 2014 [facility] [place] [facility] [address] [id number] [place] [address] 16 Oct, 2014 [facility] [place] [facility] [address] [id number] [place] [address] 15 Oct, 2014 [facility] [place] [facility] [address] [id number] [place] [address] 15 Oct, 2014 [facility] [place] [facility] [address] [id number] [place] [address] Oct, [facility] [place] [facility] [address] [id number] [place] [address] Sep, [facility] [place] [facility] [address] [id number] [place] [address] Sep, [facility] [place] [facility] [address] [id number] [address] Sep, [facility] [place] [facility] [address] [id number] [place] [address] Sep, [facility] [place] [facility] [address] [id number] [place] [address] Aug, [facility] [place] [facility] [address] [id number] [address] Aug, [facility] [place] [facility] [address] [id number], [place] [address] Aug, [facility] [place] [facility] [address] [id number] [place] [address] Aug, [facility] [place] [facility] [address] [id number] [place] [address] Aug, [facility] [place] [facility] [address] [id number] [place] [address] Aug, [facility] [place] [facility] [address] [id number] [place] [address] 29 Jul, 2014 [facility] [place] [facility] [address] [id number] [place] [address] 29 Jul, 2014 [facility] [place] [facility] [address] [id number] [place] [address] 15 Jul, 2014 [facility] [place] [facility] [address] [id number] [place] [address] 15 Jul, 2014 [facility] [place] [facility] [address] [id number] [place] [address] 08 Jul, 2014 [facility] [place] [facility] [address] [id number] [place] [address] 08 Jul, 2014 [facility] [place] [facility] [address] [id number] [place] [address] Jun, [facility] [place] [facility] [address] [id number] [place] [address] Jun, [facility] [place] [facility] [address] [id number], [place] [address] Jun, [facility] [place] [facility] [address] [id number] [place] [address] Jun, [facility] [place] [facility] [address] [id number] [place] [address] Jun, [facility] [place] [facility] [address] [id number] [place] [address] Jun, [facility] [place] [facility] [address] [id number] [place] [address] Jun, [facility] [place] [facility] [address] [id number] [place] [address] May, [facility] [place] [facility] [address] [id number] [place] [address] May, [facility] [place] [facility] [address] [id number] [place] [address] May, [facility] [place] [facility] [address] [id number] [place] [address] May, [facility] [place] [facility] [address] [id number] [place] [address] May, [facility] [place] [facility] [address] [id number] [place] [address] May, [facility] [place] [facility] [address] [id number] [place] [address] May, [facility] [place] [facility] [address] [id number] [place] [address] May, [facility] [place] [facility] [address] [id number] [place] [address] May, [facility] [place] [facility] [address] [id number] [place] [address] May, [facility] [place] [facility] [address] [id number] [place] [address] May, [facility] [place] [facility] [address] [id number] [place] [address] May, [facility] [place] [facility] [address] [id number] [place] [address] Apr, [facility] [place] [facility] [address] [id number] [place] [address] Apr, [facility] [place] [facility] [address] [id number] [place] [address] Apr, [facility] [place] [facility] [address] [id number] [place] [address] Apr, [facility] [place] [facility] [address] [id number] [place] [address] Apr, [facility] [place] [facility] [address] [id number] [place] [address] Apr, [facility] [place] [facility] [address] [id number] [place] [address] Apr, [facility] [place] [facility] [address] [id number] [place] [address] Apr, [facility] [place] [facility] [address] [id number] [place] [address] Apr, [facility] [place] [facility] [address] [id number] [place] [address] Apr, [facility] [place] [facility] [address] [id number] [place] [address] March, [facility] [place] [facility] [address] [id number] [place] [address] March, [facility] [place] [facility] [address] [id number] [place] [address] March, [facility] [place] [facility] [address] [id number] [place] [address] March, [facility] [place] [facility] [address] [id number] [place] [address] March, [facility] [place] [facility] [address] [id number] [place] [address] March, [facility] [place] [facility] [address] [id number] [place] [address] Feb, [facility] [place] [facility] [address] [id number] [place] [address] Feb, [facility] [place] [facility] [address] [id number] [place] [address] Feb, [facility] [place] [facility] [address] [id number] [place] [address] Feb, [facility] [place] [facility] [address] [id number] [place] [address] Feb, [facility] [place] [facility] [address] [id number] [place] [address] Feb, [facility] [place] [facility] [address] [id number] [place] [address] Feb, [facility] [place] [facility] [address] [id number] [place] [address] Feb, [facility] [place] [facility] [address] [id number] [place] [address] Feb, [facility] [place] [facility] [address] [id number] [place] [address] Feb, [facility] [place] [facility] [address] [id number] [place] [address] Jan, [facility] [place] [facility] [address] [id number] [place] [address] Jan, [facility] [place] [facility] [address] [id number] [place] [address] Jan, [facility] [place] [facility] [address] [id number] [place] [address] Jan, [facility] [place] [facility] [address] [id number] [place] [address] Jan, [facility] [place] [facility] [address] [id number] [place] [address] Jan, [facility] [place] [facility] [address] [id number] [place] [address] Jan, [facility] [place] [facility] [address] [id number] [place] [address] Jan, [facility] [place] [facility] [address] [id number] [place] [address] Dec, [facility] [place] [facility] [address] [id number] [place] [address] Dec, [facility] [place] [facility] [address] [id number] [place] [address] Dec, [facility] [place] [facility] [address] [id number] [place] [address] Dec, [facility] [place] [facility] [address] [id number] [place] [address] Dec, [facility] [place] [facility] [address] [id number] [place] [address] Dec, [facility] [place] [facility] [address] [id number] [place] [address] Dec, [facility] [place] [facility] [address] [id number] [place] [address] Dec, [facility] [place] [facility] [address] [id number] [place] [address] Nov, [facility] [place] [facility] [address] [id number] [place] [address] Nov, [facility] [place] [facility] [address] [id number] [place] [address] Nov, [facility] [place] [facility] [address] [id number] [place] [address] Nov, [facility] [place] [facility] [address] [id number] [place] [address] Nov, [facility] [place] [facility] [address] [id number] [place] [address] Nov, [facility] [place] [facility] [address] [id number] [place] [address] Nov, [facility] [place] [facility] [address] [id number] [place] [address] Nov, [facility] [address] [id number] [place] [address] Nov, [facility] [place] [facility] [address] [id number] [place] [address] Nov, [facility] [address] [id number] [place] [address] Nov, [facility] [place] [facility] [address] [id number] [place] [address] Oct, [facility] [place] [facility] [address] [id number] [place] [address] Oct, [facility] [place] [facility] [address] [id number] [place] [address] Oct, [facility] [address] [facility] [id number] [place] [address] Oct, [facility] [place] [facility] [address] [id number] [place] [address] Sep, [facility] [place] [facility] [address] [id number] [place] [address] Sep, [facility] [place] [facility] [address] [facility] [id number] [place] [address] Sep, [facility] [place] [facility] [address] [id number] [place] [address] Sep, [facility] [place] [facility] [address] [id number], [place] [address] Aug, [facility] [place] [facility] [address] [id number] [place] [address] Aug, [facility] [place] [facility] [address] [facility] [id number] [place] [address] Aug, [facility] [place] [facility] [address] [id number] [place] [address] Aug, [facility] [place] [facility] [address] [id number] [place] [address] Aug, [facility] [place] [facility] [address] [id number] [place] [address] Aug, [facility] [place] [facility] [address] [id number] [place] [address] Aug, [facility] [place] [facility] [address] [id number] [place] [address] Aug, [facility] [address] [id number] [place] [address] 28 Jul, 2013 [facility] [place] [facility] [address] [id number] [place] [address] 27 Jul, 2013 [facility] [address] [id number] [place] [address] 26 Jul, 2012 [facility] [place] [facility] [address] [id number] [place] [address] 24 Jul, 2012 [facility] [place] [facility] [address] [id number] [place] [address] 24 Jul, 2013 [facility] [place] [facility] [address] [id number] [place] [address] 23 Jul, 2013 [facility] [place] [facility] [address] [id number] [place] [address] 19 Jul, 2012 [facility] [place] [facility] [address] [id number], [place] [address] 18 Sep, 2012 [facility] [place] [facility] [address] [id number] [place] [address] 17 Sep, 2012 [facility] [place] [facility] [address] [id number] [place] [address] 16 Sep, 2012 [facility] [place] [facility] [address] [id number] [place] [address] 13 Sep, 2012 [facility] [place] [facility] [address] [id number] [place] [address] Jul, [facility] [place] [facility] [address] [id number] [place] [address] Jul, [facility] [place] [facility] [address] [id number] [place] [address] Jul, [facility] [place] [facility] [address] [id number] [place] [address] Jul, [facility] [place] [facility] [address] [id number] [place] [address] Jun, [facility] [place] [facility] [address] [id number] [place] [address] Jun, [facility] [place] [facility] [address] [id number] [place] [address] Jun, [facility] [place] [facility] [address] [id number] [place] [address] May, [facility] [place] [facility] [address] [id number] [place] [address] May, [facility] [place] [facility] [address] [id number] [place] [address] May, [facility] [place] [facility] [address] [id number] [place] [address] May, [facility] [place] [facility] [address] [id number] [place] [address] Apr, [facility] [place] [facility] [address] [id number] [place] [address] Apr, [facility] [place] [facility] [address] [id number] [place] [address] Apr, [facility] [place] [facility] [address] [id number] [place] [address] Apr, [facility] [place] [facility] [address] [id number] [place] [address] March, [facility] [place] [facility] [address] [id number] [place] [address] March, [facility] [address] [id number] [place] [address] March, [facility] [address] [id number] [place] [address] Feb, [facility] [address] [id number] [place] [address] Feb, [facility] [address] [id number] [place] [address] Jan, [facility] [address] [id number] [place] [address] Jan, [facility] [address] [facility] [id number] [place] [address] Jan, [facility] [address] [id number] [place] [address] Jan, [facility] [address] [id number] [place] [address] Jan, [facility] [address] [id number] [place] [address] Dec, [facility] [address] [facility] [id number] [place] [address] Dec, [facility] [address] [id number] [place] [address] Dec, [facility] [address] [id number] [place] [address] Dec, [facility] [place] [facility] [address] [id number] [place] [address] Dec, [facility] [address] [id number] [place] [address] 06 Dec, 2012 [facility] [address] [id number] [place] [address] 04 Dec, 2012 [facility] [address] [id number] [place] [address] Dec, [facility] [place] [facility] [address] [id number] [place] [address] Nov, [facility] [address] [id number] [place] [address] Nov, [facility] [place] [facility] [address] [id number] [place] [address] Nov, [facility] [address] [id number] [place] [address] Nov, [facility] [address] [id number] [place] [address] Nov, [facility] [address] [id number] [place] [address] Nov, [facility] [address] [id number] [place] [address] Nov, [facility] [address] [id number] [place] [address] Oct, [facility] [address] [id number] [place] [address] Oct, [facility] [address] [id number] [place] [address] Oct, [facility] [place] [facility] [address] [id number] [place] [address] Oct, [facility] [place] [facility] [address] [id number] [place] [address] Oct, [facility] [place] [facility] [address] [id number] [place] [address] Oct, [facility] [place] [facility] [address] [id number] [place] [address] Oct, [facility] [place] [facility] [address] [id number] [place] [address] Oct, [facility] [place] [facility] [address] [id number] [place] [address] Sep, [facility] [place] [facility] [address] [id number] [place] [address] Sep, [facility] [place] [facility] [address] [id number] [place] [address] Sep, [facility] [place] [facility] [address] [id number] [place] [address] Sep, [facility] [place] [facility] [address] [id number] [place] [address] Sep, [facility] [place] [facility] [address] [id number] [place] [address] Sep, [facility] [place] [facility] [address] [id number] [place] [address] Sep, [facility] [place] [facility] [address] [id number] [place] [address] Sep, [facility] [place] [facility] [address] [id number] [place] [address] Sep, [facility] [place] [facility] [address] [id number] [place] [address] Sep, [facility] [place] [facility] [address] [id number] [place] [address] Sep, [facility] [place] [facility] [address] [id number] [place] [address] Sep, [facility] [place] [facility] [address] [id number] [place] [address] Sep, [facility] [place] [facility] [address] [id number] [place] [address] Sep, [facility] [place] [facility] [address] [id number] [place] [address] Sep, [facility] [place] [facility] [address] [id number] [place] [address] Sep, [facility] [place] [facility] [address] [id number] [place] [address] Sep, [facility] [place] [facility] [address] [id number] [place] [address] Sep, [facility] [place] [facility] [address] [id number] [place] [address] Sep, [facility] [place] [facility] [address] [id number] [place] [address] Sep, [facility] [place] [facility] [address] [id number] [place] [address] Aug, [facility] [place] [facility] [address] [id number] [place] [address] Aug, [facility] [place] [facility] [address] [id number], [place] [address] 29 Aug, 2012 [facility] [place] [facility] [address] [id number] [place] [address] Aug, [facility] [place] [facility] [address] [facility] [id number], [place] [address] Aug, [facility] [place] [facility] [address] [facility] [id number], [place] [address] Aug, [facility] [place] [facility] [address] [id number], [place] [address] 18 Aug, 2012 [facility] [place] [facility] [address] [id number], [place] [address] 17 Aug, 2012 [facility] [place] [facility] [address] [facility] [id number], [place] [address] 16 Aug, 2012 [facility] [place] [facility] [address] [facility] [id number], [place] [address] 16 Aug, 2012 [facility] [place] [facility] [address] [id number], [place] [address] Aug, [facility] [place] [facility] [address] [id number] [place] [address] Aug, [facility] [place] [facility] [address] [id number] [place] [address] Aug, [facility] [place] [facility] [address] [id number] [place] [address] Aug, [facility] [place] [facility] [address] [id number] [place] [address] Aug, [facility] [place] [facility] [address] [id number] [place] [address] 14 Jul, 2012 [facility] [place] [facility] [address] [id number] [place] [address] Jul, [facility] [place] [facility] [address] [facility] [id number] [place] [address] Jun, [facility] [place] [facility] [address] [id number] [place] [address] Jun, [facility] [place] [facility] [address] [id number] [place] [address] May, [facility] [place] [facility] [address] [facility] [id number] [place] [address] May, [facility] [place] [facility] [address] [id number] [place] [address] May, [facility] [place] [facility] [address] [id number], [place] [address] May, [facility] [place] [facility] [address] [id number] [place] [address] May, [facility] [place] [facility] [address] [facility] [id number] [place] [address] May, [facility] [place] [facility] [address] [facility] [id number] [place] [address] Apr, [facility] [place] [facility] [address] [id number] [place] [address] 15 Apr, 2012 [facility] [place] [facility] [address] [id number] [place] [address] March, [facility] [place] [facility] [address] [id number] [place] [address] March, [facility] [place] [facility] [address] [id number] [place] [address] March, [facility] [place] [facility] [address] [id number] [place] [address] March, [facility] [place] [facility] [address] [id number] [place] [address] March, [facility] [place] [facility] [address] [id number] [place] [address] March, [facility] [place] [facility] [address] [id number] [place] [address] Feb, [facility] [place] [facility] [address] [id number] [place] [address] Feb, [facility] [place] [facility] [address] [id number] [place] [address] Feb, [facility] [place] [facility] [address] [id number] [place] [address] Feb, [facility] [place] [facility] [address] [id number] [place] [address] Feb, [facility] [place] [facility] [address] [id number] [place] [address] 19 Feb, 2012 [facility] [place] [facility] [address] [id number] [place] [address] Feb, [facility] [place] [facility] [address] [id number] [place] [address] Feb, [facility] [place] [facility] [address] [id number] [place] [address] 04 Feb, 2012 [facility] [place] [facility] [address] [id number] [place] [address] 30 Jan, 2012 [facility] [place] [facility] [address] [id number] [place] [address] 27 Jan, 2012 [facility] [place] [facility] [address] [id number] [place] [address] Jan, [facility] [place] [facility] [address] [id number] [place] [address] 22 Jan, 2012 [facility] [place] [facility] [address] [id number] [place] [address] 21 Jan, 2012 [facility] [place] [facility] [address] [id number] [place] [address] 20 Jan, 2012 [facility] [place] [facility] [address] [id number] [place] [address] 14 Jan, 2012 [facility] [place] [facility] [address] [id number] [place] [address] Jan, [facility] [place] [facility] [address] [id number] [place] [address] Jan, [facility] [place] [facility] [address] [id number] [place] [address] 08 Jan, 2012 [facility] [place] [facility] [address] [id number] [place] [address] 07 Jan, 2012 [facility] [place] [facility] [address] [id number], [place] [address] 06 Jan, 2012 [facility] [place] [facility] [address] [id number] [place] [address] Jan, [facility] [place] [facility] [address] [id number] [place] [address] Jan, [facility] [place] [facility] [address] [id number] [place] [address] Dec, [facility] [place] [facility] [address] [id number] [place] [address] 27 Dec, 2011 [facility] [place] [facility] [address] [id number] [place] [address] Dec, [facility] [place] [facility] [address] [id number] [place] [address] 23 Dec, 2011 [facility] [place] [facility] [address] [id number] [place] [address] 16 Dec, 2011 [facility] [place] [facility] [address] [id number] [place] [address] 08 Dec, 2011 [facility] [place] [facility] [address] [id number] [place] [address] 08 Dec, 2011 [facility] [place] [facility] [address] [facility] [id number] [place] [address] Dec, [facility] [place] [facility] [address] [facility] [id number] [place] [address] 07 Dec, 2011 [facility] [place] [facility] [address] [facility] [id number] [place] [address] Nov, [facility] [place] [facility] [address] [facility] [id number] [place] [address] Nov, [facility] [place] [facility] [address] [facility] [id number] [place] [address] Nov, [facility] [place] [facility] [address] [facility] [id number] [place] [address] Nov, [facility] [place] [facility] [address] [id number] [place] [address] Oct, [facility] [place] [facility] [address] [facility] [id number] [place] [address] Oct, [facility] [place] [facility] [address] [facility] [id number] [place] [address] Oct, [facility] [place] [facility] [address] [facility] [id number] [place] [address] Oct, [facility] [place] [facility] [address] [id number] [place] [address] Oct, [facility] [place] [facility] [address] [id number] [place] [address] Oct, [facility] [place] [facility] [address] [facility] [id number] [place] [address] Oct, [facility] [place] [facility] [address] [id number], [place] [address] Sep, [facility] [place] [facility] [address] [id number] [place] [address] Sep, [facility] [place] [facility] [address] [id number], [place] [address] Sep, [facility] [place] [facility] [address] [id number] [place] [address] Sep, [facility] [place] [facility] [address] [id number], [place] [address] Sep, [facility] [place] [facility] [address] [id number], [place] [address] Sep, [facility] [place] [facility] [address] [id number], [place] [address] Sep, [facility] [place] [facility] [address] [id number], [place] [address] Sep, [facility] [place] [facility] [address] [id number], [place] [address] Sep, [facility] [place] [facility] [address] [id number], [place] [address] Aug, [facility] [place] [facility] [address] [id number], [place] [address] Aug, [facility] [place] [facility] [address] [id number], [place] [address] Aug, [facility] [place] [facility] [address] [id number] [place] [address] May, [facility] [address] [id number] [place] [address] 13 Nov, 2010 [facility] [address] [id number] [place] [address] 31 Oct, 2010 [facility] [address] [id number] [place] [address] 30 Oct, 2010 [facility] [address] [id number] [place] [address] 30 Oct, 2010 [facility] [address] [id number] [place] [address] Oct, [facility] [address] [id number] [place] [address] Oct, [facility] [address] [id number] [place] [address] Sep, [facility] [address] [id number] [place] [address] Sep, [facility] [address] [id number] [place] [address] 14 Jul, 2010 [facility] [address] [facility] [id number] [place] [address] 31 Oct, 2009 [facility] [address] [id number] [place] [address] Oct, [facility] [address] [id number] [place] [address] 04 Oct, 2009 [facility] [place] [facility] [address] [id number] [place] [address] 03 Oct, 2009 [facility] [place] [facility] [address] [id number] [place] [address] 30 Sep, 2009 [facility] [address] [id number] [place] [address] 13 Sep, 2009 [facility] [address] [facility] [id number], [place] [address] Sep, [facility] [address] [id number], [place] [address] Sep, [facility] [address] [id number], [place] [address] Sep, [facility] [id number], [place] [address] Jul, [facility] [address] [id number], [place] [address] Apr, [facility] [address] [id number], [place] [address] Dec, IMMUNIZATIONS No Known Immunizations SOCIAL HISTORY [...]
[2019-06-14] MEDS ORDERED: RT-ALBUTEROL/IPRATROPIUM 3 ML (DUONEB) VIAL INH ONE (11:15)
--- OUTSIDE RECORDS SUMMARY | 2019-06-14 11:15 | XMS REPORT ---
Author Author ETELVINA LEONARD Organization [facility] Address [address] [place] [address] Care Team Providers Care Chairman & Co Founder Name Role Phone ETELVINA LEONARD Unavailable PROBLEMS Type Condition ICD9-CM Code LHM12-WR Code Onset Dates Condition Status SNOMED Code Problem Acquired hypothyroidism E03.9 Active 794087193 Problem Prediabetes R73.03 Active 381131593 Problem Essential hypertension I10 Active 31799333 Problem Mixed hyperlipidemia E78.2 Active 109082346 Problem Gastroesophageal reflux disease, esophagitis presence not specified K21.9 Active 128329005 Problem Reactive depression F32.9 Active 94837112 Problem Lumbago with sciatica, right side M54.41 Active [id number] Problem Lumbago with sciatica, left side M54.42 Active 185258836 Problem Cigarette nicotine dependence without complication F17.210 Active 42622430 Problem DM neuro manif type II E11.49 Active 25440113 Problem Seizures R56.9 Active 63640602 Problem Adjustment disorder with disturbance of emotion F43.29 Active 58627753 Problem Chronic obstructive pulmonary disease, unspecified COPD type J44.9 Active 10513523 Problem Major depressive disorder, recurrent, moderate F33.1 Active 231092045 Problem Other chronic pain G89.29 Active 79474468 Problem Iron deficiency anemia due to chronic blood loss D50.0 Active 613423969 Problem Seasonal allergies J30.2 Active 371153394 Problem Sinusitis J32.9 Active 22887177 Problem Chronic pain G89.29 Active 83551336 ALLERGIES No Information ENCOUNTERS Encounter Location Date Diagnosis [facility] [id number] [address] May, [facility] [address], [place] [address] May, [facility] [address] [place] [id number] [place] [address] May, [place] [address] [address] Apr, [place] [address] [place] [id number] [place] [address] 18 Apr, 2019 Type 2 diabetes mellitus with hyperglycemia E11.65 [place] [address] [address] 17 Apr, 2019 Type 2 diabetes mellitus with hyperglycemia E11.65 [place] [address] [address] 14 Apr, 2019 Major depressive disorder, recurrent, moderate F33.1 and Adjustment disorder with disturbance of emotion F43.29 [place] [address] [address] Apr, [place] [address] [address] Apr, Diarrhea, unspecified type R19.7 [place] [address] [address] [id number] [place] [address] Apr, Low back pain M54.5 ; Other chronic pain G89.29 and Anemia, unspecified type D64.9 [place] [address] [id number] [place] [address] Apr, [place] [address] [address] Apr, Diarrhea, unspecified type R19.7 and Lumbar radiculopathy, chronic M54.16 [facility] [place] [address] [address] March, Non-intractable vomiting with nausea, unspecified vomiting type R11.2 and Muscle cramps R25.2 [place] [address] [address] [id number] [place] [address] March, [place] [id number] [address] 17 Mar, 2019 Other chronic pain G89.29 [facility] [id number] [place] [address] March, Type 2 diabetes mellitus with hyperglycemia E11.65 ; Flank pain R10.9 ; Acute cystitis without hematuria N30.00 ; Chronic obstructive pulmonary disease, unspecified COPD type J44.9 and Moderate episode of recurrent major depressive disorder F33.1 [facility] [id number] [place] [address] March, [facility] [id number] [place] [address] March, Wheezing R06.2 and Viral upper respiratory tract infection J06.9 [place] [address] [place] [address] [id number] [place] [address] Feb, [facility] [id number] [place] [address] Feb, [facility] [id number] [place] [address] Jan, [facility] [id number] [place] [address] Jan, Acute cystitis with hematuria N30.01 and Dysuria R30.0 [facility] [id number] [place] [address] Jan, [facility] [id number] [place] [address] Dec, [facility] [id number] [place] [address] Dec, [facility] [id number] [place] [address] Dec, [facility] [id number] [place] [address] Dec, [facility] [address] [id number] [address] Dec, Routine adult health maintenance Z00.00 ; Chronic obstructive pulmonary disease, unspecified COPD type J44.9 and Encounter for immunization Z23 [facility] [address] [address] Nov, [facility] [id number] [place] [address] Nov, UTI (urinary tract infection) N39.0 and Other chronic pain G89.29 [facility] [address] [place] [id number] [place] [address] Nov, [facility] [id number] [place] [address] Nov, [facility] [id number] [place] [address] Nov, Painful urination R30.9 and UTI (urinary tract infection) N39.0 [facility] [address] [address] Nov, [facility] [address] [address] Nov, UTI (urinary tract infection) N39.0 [facility] [address] [address] Nov, Dysuria R30.0 ; UTI (urinary tract infection) N39.0 and Chronic pain G89.29 [facility] [address] [place] [id number] [address] Nov, [facility] [id number] [place] [address] Oct, Cough R05 [facility] [address] [address] 14 Oct, 2018 Sinusitis J32.9 [place] [address] [place] [address] [id number] [place] [address] Oct, [place] [address] [address] Oct, UTI (urinary tract infection) N39.0 and URI (upper respiratory infection) J06.9 [place] [address] [place] [id number] [place] [address] Sep, Pain in thoracic spine M54.6 [place] [address] [place] [address] [id number] [place] [address] Sep, Type 2 diabetes mellitus with hyperglycemia E11.65 [place] [address] [place] [id number] [place] [address] Sep, Chronic obstructive pulmonary disease, unspecified COPD type J44.9 ; Abrasion of right ear canal, initial encounter S00.411A ; Cigarette nicotine dependence without complication F17.210 ; Right leg pain M79.604 and Seasonal allergies J30.2 [place] [address] [place] [address] [id number] [place] [address] Aug, [place] [address] [place] [id number] [place] [address] Aug, [place] [address] [place] [id number] [place] [address] Aug, Pain in thoracic spine M54.6 [place] [address] [place] [id number] [place] [address] Aug, [place] [address] [place] [address] [id number] [place] [address] Aug, Chronic obstructive pulmonary disease, unspecified COPD type J44.9 ; Complete amputation of right foot, 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 ; Cigarette nicotine dependence without complication F17.210 and BMI 40.0-44.9, adult Z68.41 [place] [address] [place] [id number] [place] [address] Jul, [place] [address] [place] [id number] [place] [address] Jul, [place] [address] [address] Jul, Onychomycosis B35.1 ; Onychocryptosis L60.0 and DM neuro manif type II E11.49 [place] [address] [address] Jun, Pain in thoracic spine M54.6 [place] [address] [address] Jun, Iron deficiency anemia due to chronic blood loss D50.0 and Hematochezia K92.1 [place] [address] [address] Jun, Gastroenteritis K52.9 and Abnormal RBC indices R71.8 [place] [address] [address] Jun, [place] [address] [address] Jun, Chest congestion R09.89 and Seizures R56.9 [place] [address] [address] May, Pain in thoracic spine M54.6 [place] [address] [place] [id number] [place] [address] May, [place] [address] [place] [id number] [place] [address] May, [place] [address] [address] May, [place] [address] [address] May, Acute non-recurrent frontal sinusitis J01.10 and Dermatitis L30.9 [place] [address] [address] May, [facility] [address] [place] [address] [id number] [place] [address] May, Pain in thoracic spine M54.6 [facility] [id number] [place] [address] May, [facility] [address] [place] [id number] [place] [address] May, Acute nasopharyngitis J00 [facility] [address] [place] [id number] [place] [address] May, [facility] [address] [place] [id number] [place] [address] May, [facility] [address] [place] [id number] [place] [address] Apr, [facility] [address] [place] [address] [id number] [place] [address] Apr, [facility] [id number] [place] [address] Apr, [facility] [address] [address] Apr, [facility] [id number] [place] [address] Apr, Pain in right ankle and joints of right foot M25.571 [facility] [address] [address] Apr, [facility] [address] [place] [address] [id number] [place] [address] Apr, Bronchitis J40 ; Pain in right ankle and joints of right foot M25.571 ; Other chronic pain G89.29 ; Prediabetes R73.03 ; Chronic obstructive pulmonary disease, unspecified COPD type J44.9 and Cigarette nicotine dependence without complication F17.210 [facility] [id number] [place] [address] 13 Apr, 2018 Seasonal allergic rhinitis, unspecified trigger J30.2 [place] [address] [place] [address] [id number] [place] [address] 08 Apr, 2018 Onychomycosis B35.1 ; Onychocryptosis L60.0 and DM neuro manif type II E11.[address] [address] Apr, Reactive depression F32.9 ; Thoracic myofascial strain, initial encounter S29.019A and Leg cramps R25.[address] [address] March, [place] [address] [address] March, Type 2 diabetes mellitus with hyperglycemia E11.65 [place] [address] [address] March, Reactive depression F32.[address] [address] March, Pain in thoracic spine M54.6 and Other chronic pain G89.29 [place] [address] [address] Feb, [place] [address] [address] Jan, Reactive depression F32.9 ; Essential hypertension I10 ; Gastroesophageal reflux disease, esophagitis presence not specified K21.9 ; Lumbago with sciatica, left side M54.42 and Lumbago with sciatica, right side M54.41 [place] [address] [place] [id number] [place] [address] Jan, Reactive depression F32.9 and Pharyngoesophageal dysphagia R13.14 [place] [id number] [address] Jan, [place] [address] [address] Jan, Encounter for immunization Z23 [place] [address] [address] Jan, Onychomycosis B35.1 and DM neuro manif type II E11.49 [place] [address] [address] Jan, [place] [address] [address] Jan, Prediabetes R73.03 [place] [address] [address] Dec, [place] [address] [address] Dec, Essential hypertension I10 ; Mixed hyperlipidemia E78.2 ; Acquired hypothyroidism E03.9 ; Reactive depression F32.9 and Prediabetes R73.03 [place] [address] [address] Dec, [place] [address] [address] Dec, [place] [address] [address] Dec, DM neuro manif type II E11.49 [facility] [address] [address] Dec, Bruise T14.8XXA ; Type 2 diabetes mellitus with hyperglycemia E11.65 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 [place] [address] [place] [id number] [place] [address] Oct, [place] [address] [address] March, Onychomycosis B35.1 and DM neuro manif type II E11.49 [facility] [id number] [place] [address] Jun, [facility] [id number] [address] Jun, [facility] [address] [place] [id number] [place] [address] Jun, COPD with acute exacerbation 491.21 [facility] [address] [place] [id number] [place] [address] Apr, [facility] [address] [place] [id number] [place] [address] Feb, [facility] [address] [id number] [place] [address] Feb, [facility] [id number] [address] Jan, [facility] [address] [address] Jan, [facility] [id number] [address] Jan, [facility] [address] [address] Jan, [facility] [address] [address] Jan, [facility] [address] [address] Jan, [facility] [address] [address] Jan, [facility] [address] [address] Jan, [facility] [address] [id number] [address] 23 Jan, 2014 [facility] [place] [facility] [address] [id number] [place] [address] 19 Jan, 2014 [facility] [place] [facility] [address] [id number] [place] [address] 19 Jan, 2014 [facility] [place] [facility] [address] [id number] [place] [address] 18 Jan, 2014 [facility] [place] [facility] [address] [id number] [place] [address] 18 Jan, 2014 [facility] [place] [facility] [address] [id number] [place] [address] 16 Jan, 2014 [facility] [place] [facility] [address] [id number] [place] [address] 16 Jan, 2014 [facility] [place] [facility] [address] [id number] [place] [address] 16 Jan, 2014 [facility] [place] [facility] [address] [id number] [place] [address] 16 Jan, 2014 [facility] [place] [facility] [address] [id number] [place] [address] 15 Jan, 2014 [facility] [place] [facility] [address] [id number] [place] [address] 13 Jan, 2014 [facility] [place] [facility] [address] [id number] [place] [address] 13 Jan, 2014 [facility] [place] [facility] [address] [id number] [place] [address] 13 Jan, 2014 [facility] [place] [facility] [address] [id number] [place] [address] 13 Jan, 2014 [facility] [place] [facility] [address] [id number] [place] [address] 12 Jan, 2014 [facility] [place] [facility] [address] [id number] [place] [address] Jan, [facility] [place] [facility] [address] [id number] [place] [address] Jan, [facility] [place] [facility] [address] [id number] [place] [address] Dec, [facility] [place] [facility] [address] [id number] [place] [address] Dec, [facility] [place] [facility] [address] [id number] [place] [address] Dec, [facility] [place] [facility] [address] [id number] [place] [address] Dec, [facility] [place] [facility] [address] [id number] [place] [address] Dec, [facility] [place] [facility] [address] [id number] [place] [address] Dec, [facility] [place] [facility] [address] [id number] [place] [address] Dec, [facility] [place] [facility] [address] [id number] [place] [address] Dec, [facility] [place] [facility] [address] [id number] [place] [address] Dec, [facility] [place] [facility] [address] [id number] [place] [address] Dec, [facility] [place] [facility] [address] [id number] [place] [address] Dec, [facility] [place] [facility] [address] [id number] [place] [address] Dec, [facility] [place] [facility] [address] [id number] [place] [address] Nov, [facility] [place] [facility] [address] [id number] [place] [address] Nov, [facility] [place] [facility] [address] [id number] [place] [address] Nov, [facility] [address] [id number] [place] [address] Nov, [facility] [place] [facility] [address] [id number] [place] [address] Nov, [facility] [address] [id number] [place] [address] Nov, [facility] [address] [id number] [place] [address] Nov, [facility] [address] [id number] [place] [address] Nov, [facility] [address] [id number] [place] [address] Nov, [facility] [address] [id number] [place] [address] Nov, [facility] [address] [id number] [place] [address] Nov, [facility] [address] [id number] [place] [address] Nov, [facility] [address] [id number] [place] [address] Oct, [facility] [address] [id number] [place] [address] Oct, [facility] [address] [id number] [place] [address] Oct, [facility] [place] [facility] [address] [id number] [place] [address] Oct, [facility] [place] [facility] [address] [id number] [place] [address] Oct, [facility] [address] [id number] [place] [address] Oct, [facility] [place] [facility] [address] [id number] [place] [address] Oct, [facility] [place] [facility] [address] [id number] [place] [address] Oct, [facility] [place] [facility] [address] [id number] [place] [address] 17 Oct, 2014 [facility] [place] [facility] [address] [id number] [place] [address] 17 Oct, 2014 [facility] [place] [facility] [address] [id number] [place] [address] 16 Oct, 2014 [facility] [place] [facility] [address] [id number] [place] [address] 16 Oct, 2014 [facility] [place] [facility] [address] [id number] [place] [address] 15 Oct, 2014 [facility] [place] [facility] [address] [id number] [place] [address] 15 Oct, 2014 [facility] [place] [facility] [address] [id number] [place] [address] Oct, [facility] [place] [facility] [address] [id number] [place] [address] Sep, [facility] [place] [facility] [address] [id number] [place] [address] Sep, [facility] [place] [facility] [address] [id number] [address] Sep, [facility] [place] [facility] [address] [id number] [place] [address] Sep, [facility] [place] [facility] [address] [id number] [place] [address] Aug, [facility] [place] [facility] [address] [id number], [place] [address] Aug, [facility] [place] [facility] [address] [id number], [place] [address] Aug, [facility] [place] [facility] [address] [id number] [place] [address] Aug, [facility] [place] [facility] [address] [id number] [place] [address] Aug, [facility] [place] [facility] [address] [id number] [place] [address] Aug, [facility] [place] [facility] [address] [id number] [place] [address] 29 Jul, 2014 [facility] [place] [facility] [address] [id number] [place] [address] 29 Jul, 2014 [facility] [place] [facility] [address] [id number] [place] [address] 15 Jul, 2014 [facility] [place] [facility] [address] [id number] [place] [address] 15 Jul, 2014 [facility] [place] [facility] [address] [id number] [place] [address] 08 Jul, 2014 [facility] [place] [facility] [address] [id number] [place] [address] 08 Jul, 2014 [facility] [place] [facility] [address] [id number] [place] [address] Jun, [facility] [place] [facility] [address] [id number] [place] [address] Jun, [facility] [place] [facility] [address] [id number], [place] [address] Jun, [facility] [place] [facility] [address] [id number] [place] [address] Jun, [facility] [place] [facility] [address] [id number] [place] [address] Jun, [facility] [place] [facility] [address] [id number] [place] [address] Jun, [facility] [place] [facility] [address] [id number] [place] [address] Jun, [facility] [place] [facility] [address] [id number] [place] [address] May, [facility] [place] [address] [id number] [place] [address] May, [facility] [place] [facility] [address] [id number] [place] [address] May, [facility] [place] [facility] [address] [id number] [place] [address] May, [facility] [place] [facility] [address] [id number] [place] [address] May, [facility] [place] [facility] [address] [id number] [place] [address] May, [facility] [place] [facility] [address] [id number] [place] [address] May, [facility] [place] [facility] [address] [id number] [place] [address] May, [facility] [place] [facility] [address] [id number] [place] [address] May, [facility] [place] [facility] [address] [id number] [place] [address] May, [facility] [place] [facility] [address] [id number] [place] [address] May, [facility] [place] [facility] [address] [id number] [place] [address] May, [facility] [place] [facility] [address] [id number] [place] [address] Apr, [facility] [place] [facility] [address] [id number] [place] [address] Apr, [facility] [place] [facility] [address] [id number] [place] [address] Apr, [facility] [facility] [address] [id number] [place] [address] Apr, [facility] [place] [facility] [address] [id number] [place] [address] Apr, [facility] [place] [facility] [address] [id number] [place] [address] Apr, [facility] [place] [facility] [address] [id number] [place] [address] Apr, [facility] [place] [facility] [address] [id number] [place] [address] Apr, [facility] [place] [facility] [address] [id number] [place] [address] Apr, [facility] [place] [facility] [address] [id number] [place] [address] Apr, [facility] [place] [facility] [address] [id number] [place] [address] March, [facility] [place] [facility] [address] [id number] [place] [address] March, [facility] [place] [facility] [address] [id number] [place] [address] March, [facility] [place] [facility] [address] [id number] [place] [address] March, [facility] [place] [facility] [address] [id number] [place] [address] March, [facility] [place] [facility] [address] [id number] [place] [address] March, [facility] [place] [facility] [address] [id number] [place] [address] Feb, [facility] [place] [facility] [address] [id number] [place] [address] Feb, [facility] [place] [facility] [address] [id number] [place] [address] Feb, [facility] [place] [facility] [address] [id number] [place] [address] Feb, [facility] [place] [facility] [address] [id number] [place] [address] Feb, [facility] [place] [facility] [address] [id number] [place] [address] Feb, [facility] [place] [facility] [address] [id number] [place] [address] Feb, [facility] [place] [facility] [address] [id number] [place] [address] Feb, [facility] [place] [facility] [address] [id number] [place] [address] Feb, [facility] [place] [address] [id number] [place] [address] Feb, [facility] [place] [facility] [address] [id number] [place] [address] Jan, [facility] [place] [facility] [address] [id number] [place] [address] Jan, [facility] [place] [facility] [address] [id number] [place] [address] Jan, [facility] [place] [facility] [address] [id number] [place] [address] Jan, [facility] [place] [facility] [address] [id number] [place] [address] Jan, [facility] [place] [address] [id number] [place] [address] Jan, [facility] [place] [address] [id number] [place] [address] Jan, [facility] [place] [facility] [address] [id number] [place] [address] Jan, [facility] [place] [facility] [address] [id number] [place] [address] Dec, [facility] [place] [address] [id number] [place] [address] Dec, [facility] [place] [address] [id number] [place] [address] Dec, [facility] [place] [address] [id number] [place] [address] Dec, [facility] [address] [id number] [place] [address] Dec, [facility] [place] [address] [id number] [place] [address] Dec, [facility] [place] [address] [id number] [place] [address] Dec, [facility] [place] [facility] [address] [id number] [place] [address] Dec, [facility] [place] [facility] [address] [id number] [place] [address] Nov, [facility] [address] [id number] [place] [address] Nov, [facility] [address] [id number] [place] [address] Nov, [facility] [address] [id number] [place] [address] Nov, [facility] [address] [id number] [place] [address] Nov, [facility] [address] [id number] [place] [address] Nov, [facility] [address] [id number] [place] [address] Nov, [facility] [address] [id number] [place] [address] Nov, [facility] [address] [id number] [place] [address] Nov, [facility] [address] [id number] [place] [address] Nov, [facility] [address] [id number] [place] [address] Nov, [facility] [address] [id number] [place] [address] Oct, [facility] [address] [id number] [place] [address] Oct, [facility] [address] [id number] [place] [address] Oct, [facility] [address] [facility] [id number] [place] [address] Oct, [facility] [address] [id number] [place] [address] Sep, [facility] [address] [id number] [place] [address] Sep, [facility] [address] [facility] [id number] [place] [address] Sep, [facility] [address] [id number] [place] [address] Sep, [facility] [address] [id number] [address] Aug, [facility] [address] [id number] [place] [address] Aug, [facility] [address] [facility] [id number] [place] [address] Aug, [facility] [address] [id number] [place] [address] Aug, [facility] [address] [id number] [place] [address] Aug, [facility] [address] [id number] [place] [address] Aug, [facility] [address] [id number] [place] [address] Aug, [facility] [address] [id number] [place] [address] Aug, [facility] [address] [id number] [place] [address] 28 Jul, 2013 [facility] [address] [id number] [place] [address] 27 Jul, 2013 [facility] [address] [id number] [place] [address] 26 Jul, 2012 [facility] [address] [id number] [place] [address] 24 Jul, 2012 [facility] [address] [id number] [place] [address] 24 Jul, 2013 [facility] [address] [id number] [place] [address] 23 Jul, 2013 [facility] [address] [id number] [place] [address] 19 Jul, 2012 [facility] [address] [id number] [address] 18 Sep, 2012 [facility] [address] [id number] [place] [address] 17 Sep, 2012 [facility] [address] [id number] [place] [address] 16 Sep, 2012 [facility] [address] [id number] [place] [address] 13 Sep, 2012 [facility] [address] [id number] [place] [address] Jul, [facility] [address] [id number] [place] [address] Jul, [facility] [address] [id number] [place] [address] Jul, [facility] [address] [id number] [place] [address] Jul, [facility] [address] [id number] [place] [address] Jun, [facility] [address] [id number] [place] [address] Jun, [facility] [address] [id number] [place] [address] Jun, [facility] [address] [id number] [place] [address] May, [facility] [address] [id number] [place] [address] May, [facility] [address] [id number] [place] [address] May, [facility] [address] [id number] [place] [address] May, [facility] [address] [id number] [place] [address] Apr, [facility] [address] [id number] [place] [address] Apr, [facility] [address] [id number] [place] [address] Apr, [facility] [address] [id number] [place] [address] Apr, [facility] [address] [id number] [place] [address] March, [facility] [address] [id number] [place] [address] March, [facility] [address] [id number] [place] [address] March, [facility] [address] [id number] [place] [address] Feb, [facility] [address] [id number] [place] [address] Feb, [facility] [address] [id number] [place] [address] Jan, [facility] [address] [id number] [place] [address] Jan, [facility] [address] [facility] [id number] [place] [address] Jan, [facility] [address] [id number] [place] [address] Jan, [facility] [address] [id number] [place] [address] Jan, [facility] [address] [id number] [place] [address] Dec, [facility] [address] [facility] [id number] [place] [address] Dec, [facility] [address] [id number] [place] [address] Dec, [facility] [address] [id number] [place] [address] Dec, [facility] [address] [id number] [place] [address] Dec, [facility] [address] [id number] [place] [address] 06 Dec, 2012 [facility] [address] [id number] [place] [address] 04 Dec, 2012 [facility] [address] [id number] [place] [address] Dec, [facility] [address] [id number] [place] [address] Nov, [facility] [address] [id number] [place] [address] Nov, [facility] [address] [id number] [place] [address] Nov, [facility] [address] [id number] [place] [address] Nov, [facility] [address] [id number] [place] [address] Nov, [facility] [address] [id number] [place] [address] Nov, [facility] [address] [id number] [place] [address] Nov, [facility] [address] [id number] [place] [address] Oct, [facility] [address] [id number] [place] [address] Oct, [facility] [address] [id number] [place] [address] Oct, [facility] [address] [id number] [place] [address] Oct, [facility] [address] [id number] [place] [address] Oct, [facility] [address] [id number] [place] [address] Oct, [facility] [address] [id number] [place] [address] Oct, [facility] [address] [id number] [place] [address] Oct, [facility] [address] [id number] [place] [address] Sep, [facility] [address] [id number] [place] [address] Sep, [facility] [address] [id number] [place] [address] Sep, [facility] [address] [id number] [place] [address] Sep, [facility] [address] [id number] [place] [address] Sep, [facility] [address] [id number] [place] [address] Sep, [facility] [address] [id number] [place] [address] Sep, [facility] [address] [id number] [place] [address] Sep, [facility] [place] [address] [id number] [place] [address] Sep, [facility] [address] [id number] [place] [address] Sep, [facility] [address] [id number] [place] [address] Sep, [facility] [place] [facility] [address] [id number] [place] [address] Sep, [facility] [place] [facility] [address] [id number] [place] [address] Sep, [facility] [place] [facility] [address] [id number] [place] [address] Sep, [facility] [place] [facility] [address] [id number] [place] [address] Sep, [facility] [place] [facility] [address] [id number] [place] [address] Sep, [facility] [address] [id number] [place] [address] Sep, [facility] [place] [facility] [address] [id number] [place] [address] Sep, [facility] [place] [facility] [address] [id number] [place] [address] Sep, [facility] [place] [facility] [address] [id number] [place] [address] Sep, [facility] [place] [facility] [address] [id number] [place] [address] Aug, [facility] [place] [facility] [address] [id number] [place] [address] Aug, [facility] [place] [facility] [address] [id number] [address] 29 Aug, 2012 [facility] [place] [facility] [address] [id number] [place] [address] Aug, [facility] [place] [facility] [address] [facility] [id number], [place] [address] Aug, [facility] [place] [facility] [address] [facility] [id number], [place] [address] Aug, [facility] [place] [facility] [address] [id number], [place] [address] 18 Aug, 2012 [facility] [place] [facility] [address] [id number], [place] [address] 17 Aug, 2012 [facility] [place] [facility] [address] [facility] [id number], [place] [address] 16 Aug, 2012 [facility] [place] [facility] [address] [facility] [id number], [place] [address] 16 Aug, 2012 [facility] [place] [facility] [address] [id number], [place] [address] Aug, [facility] [place] [facility] [address] [id number] [place] [address] Aug, [facility] [place] [facility] [address] [id number] [place] [address] Aug, [facility] [place] [facility] [address] [id number] [place] [address] Aug, [facility] [place] [facility] [address] [id number] [place] [address] Aug, [facility] [place] [facility] [address] [id number] [place] [address] 14 Jul, 2012 [facility] [place] [facility] [address] [id number] [place] [address] Jul, [facility] [place] [facility] [address] [facility] [id number] [place] [address] Jun, [facility] [place] [facility] [address] [id number] [place] [address] Jun, [facility] [place] [facility] [address] [id number] [address] May, [facility] [place] [facility] [address] [facility] [id number] [place] [address] May, [facility] [place] [facility] [address] [id number] [place] [address] May, [facility] [place] [facility] [address] [id number], [place] [address] May, [facility] [place] [facility] [address] [id number] [place] [address] May, [facility] [place] [facility] [address] [facility] [id number] [place] [address] May, [facility] [place] [facility] [address] [facility] [id number] [place] [address] Apr, [facility] [place] [facility] [address] [id number] [place] [address] 15 Apr, 2012 [facility] [place] [facility] [address] [id number] [place] [address] March, [facility] [place] [facility] [address] [id number] [place] [address] March, [facility] [place] [facility] [address] [id number] [place] [address] March, [facility] [place] [facility] [address] [id number] [place] [address] March, [facility] [place] [facility] [address] [id number] [place] [address] March, [facility] [place] [facility] [address] [id number] [place] [address] March, [facility] [place] [facility] [address] [id number] [place] [address] Feb, [facility] [place] [facility] [address] [id number] [place] [address] Feb, [facility] [place] [facility] [address] [id number] [place] [address] Feb, [facility] [place] [facility] [address] [id number] [place] [address] Feb, [facility] [place] [facility] [address] [id number] [place] [address] Feb, [facility] [place] [facility] [address] [id number] [place] [address] 19 Feb, 2012 [facility] [place] [facility] [address] [id number] [place] [address] Feb, [facility] [place] [facility] [address] [id number] [place] [address] Feb, [facility] [place] [facility] [address] [id number] [place] [address] 04 Feb, 2012 [facility] [place] [facility] [address] [id number] [place] [address] 30 Jan, 2012 [facility] [place] [facility] [address] [id number] [place] [address] 27 Jan, 2012 [facility] [place] [facility] [address] [id number] [place] [address] Jan, [facility] [place] [facility] [address] [id number] [place] [address] 22 Jan, 2012 [facility] [place] [facility] [address] [id number] [place] [address] 21 Jan, 2012 [facility] [place] [facility] [address] [id number] [place] [address] 20 Jan, 2012 [facility] [place] [facility] [address] [id number] [place] [address] 14 Jan, 2012 [facility] [place] [facility] [address] [id number] [place] [address] Jan, [facility] [place] [facility] [address] [id number] [place] [address] Jan, [facility] [place] [facility] [address] [id number] [place] [address] 08 Jan, 2012 [facility] [place] [facility] [address] [id number] [place] [address] 07 Jan, 2012 [facility] [place] [facility] [address] [id number] [address] 06 Jan, 2012 [facility] [place] [facility] [address] [id number] [place] [address] Jan, [facility] [place] [facility] [address] [id number] [place] [address] Jan, [facility] [place] [facility] [address] [id number] [place] [address] Dec, [facility] [place] [facility] [address] [id number] [place] [address] 27 Dec, 2011 [facility] [place] [facility] [address] [id number] [place] [address] Dec, [facility] [place] [facility] [address] [id number] [place] [address] 23 Dec, 2011 [facility] [place] [facility] [address] [id number] [place] [address] 16 Dec, 2011 [facility] [place] [facility] [address] [id number] [place] [address] 08 Dec, 2011 [facility] [place] [facility] [address] [id number] [place] [address] 08 Dec, 2011 [facility] [place] [facility] [address] [facility] [id number] [place] [address] Dec, [facility] [place] [facility] [address] [facility] [id number] [place] [address] 07 Dec, 2011 [facility] [place] [facility] [address] [facility] [id number] [place] [address] Nov, [facility] [place] [facility] [address] [facility] [id number] [place] [address] Nov, [facility] [place] [facility] [address] [facility] [id number] [place] [address] Nov, [facility] [place] [facility] [address] [facility] [id number] [place] [address] Nov, [facility] [place] [facility] [address] [id number] [place] [address] Oct, [facility] [place] [facility] [address] [facility] [id number] [place] [address] Oct, [facility] [place] [facility] [address] [facility] [id number] [place] [address] Oct, [facility] [place] [facility] [address] [facility] [id number] [place] [address] Oct, [facility] [place] [facility] [address] [id number] [place] [address] Oct, [facility] [place] [facility] [address] [id number] [place] [address] Oct, [facility] [place] [facility] [address] [facility] [id number] [place] [address] Oct, [facility] [place] [facility] [address] [id number], [place] [address] Sep, [facility] [place] [facility] [address] [id number] [place] [address] Sep, [facility] [place] [facility] [address] [id number], [place] [address] Sep, [facility] [place] [facility] [address] [id number] [place] [address] Sep, [facility] [place] [facility] [address] [id number], [place] [address] Sep, [facility] [place] [facility] [address] [id number], [place] [address] Sep, [facility] [place] [facility] [address] [id number], [place] [address] Sep, [facility] [place] [facility] [address] [id number], [place] [address] Sep, [facility] [place] [facility] [address] [id number], [place] [address] Sep, [facility] [place] [facility] [address] [id number], [place] [address] Aug, [facility] [place] [facility] [address] [id number], [place] [address] Aug, [facility] [place] [facility] [address] [id number], [place] [address] Aug, [facility] [place] [facility] [address] [id number] [place] [address] May, [facility] [address] [id number] [place] [address] 13 Nov, 2010 [facility] [address] [id number] [place] [address] 31 Oct, 2010 [facility] [address] [id number] [place] [address] 30 Oct, 2010 [facility] [address] [id number] [place] [address] 30 Oct, 2010 [facility] [address] [id number] [place] [address] Oct, [facility] [address] [id number] [place] [address] Oct, [facility] [address] [id number] [place] [address] Sep, [facility] [address] [id number] [place] [address] Sep, [facility] [address] [id number] [place] [address] 14 Jul, 2010 [facility] [address] [facility] [id number] [place] [address] 31 Oct, 2009 [facility] [address] [id number] [place] [address] Oct, [facility] [address] [id number] [place] [address] 04 Oct, 2009 [facility] [place] [facility] [address] [id number] [place] [address] 03 Oct, 2009 [facility] [place] [facility] [address] [id number] [place] [address] 30 Sep, 2009 [facility] [address] [id number] [place] [address] 13 Sep, 2009 [facility] [address] [facility] [id number], [place] [address] Sep, [facility] [address] [id number] [address] Sep, [facility] [address] [id number], [place] [address] Sep, [facility] [id number] [address] Jul, [facility] [address] [id number] [address] Apr, [facility] [address] [id number] [address] Dec, IMMUNIZATIONS No Known Immunizations SOCIAL HISTORY [...]
[2019-06-14 11:16] LABS: BILIRUBIN,URINE NEGATIVE (NEGATIVE); CLARITY,URINE VERY CLOUDY; COLOR,URINE YELLOW; GLUCOSE, URINE (UA) NEGATIVE (NEGATIVE); KETONES,URINE NEGATIVE (NEGATIVE); LEUKOCYTE ESTERASE ,URINE 3+ (NEGATIVE); NITRITE,URINE NEGATIVE (NEGATIVE); PH,URINE 6 (5-9); PROTEIN,URINE 2+ (NEGATIVE); UROBILINOGEN,URINE NORMAL (NORMAL)
--- OUTSIDE RECORDS SUMMARY | 2019-06-14 11:17 | XMS REPORT ---
Author Author Migration, Doctor Organization [facility] Address Unknown Phone Unavailable Care Team Providers Care Set Up [employer] Name Role Phone Migration, Doctor Unavailable Unavailable PROBLEMS Type Condition ICD9-CM Code GYE03-FT Code Onset Dates Condition Status SNOMED Code Problem Acquired hypothyroidism E03.9 Active 478575255 Problem Prediabetes R73.03 Active 660447165 Problem Essential hypertension I10 Active 66325342 Problem Mixed hyperlipidemia E78.2 Active 127096218 Problem Gastroesophageal reflux disease, esophagitis presence not specified K21.9 Active 270026396 Problem Reactive depression F32.9 Active 92639508 Problem Lumbago with sciatica, right side M54.41 Active 28134770097075703 Problem Lumbago with sciatica, left side M54.42 Active 796222280 Problem Cigarette nicotine dependence without complication F17.210 Active 20459695 Problem DM neuro manif type II E11.49 Active 16664712 Problem Seizures R56.9 Active 63806407 Problem Adjustment disorder with disturbance of emotion F43.29 Active 67716198 Problem Chronic obstructive pulmonary disease, unspecified COPD type J44.9 Active 25572964 Problem Major depressive disorder, recurrent, moderate F33.1 Active 537414052 Problem Other chronic pain G89.29 Active 60547297 Problem Iron deficiency anemia due to chronic blood loss D50.0 Active 465757913 Problem Seasonal allergies J30.2 Active 335826760 Problem Sinusitis J32.9 Active 25593625 Problem Chronic pain G89.29 Active 06405005 ALLERGIES Substance Reaction Event Type Date Status Aspirin Unknown Drug Allergy Feb, Active Peanut Unknown Non Drug Allergy Feb, Active ENCOUNTERS Encounter Location Date Diagnosis [facility] [id number] [address] May, [facility] [id number] [address] May, [facility] [id number] [place] [address] May, [facility] [id number] [place] [address] Apr, [facility] [id number] [place] [address] Apr, Type 2 diabetes mellitus with hyperglycemia E11.65 [facility] [address] [address] 17 Apr, 2019 Type 2 diabetes mellitus with hyperglycemia E11.65 [facility] [id number] [place] [address] 14 Apr, 2019 Major depressive disorder, recurrent, moderate F33.1 and Adjustment disorder with disturbance of emotion F43.29 [facility] [id number] [place] [address] Apr, [facility] [address] [address] Apr, Diarrhea, unspecified type R19.7 [facility] [id number] [place] [address] Apr, Low back pain M54.5 ; Other chronic pain G89.29 and Anemia, unspecified type D64.9 [facility] [id number] [place] [address] Apr, [facility] [id number] [place] [address] Apr, Diarrhea, unspecified type R19.7 and Lumbar radiculopathy, chronic M54.16 [facility] [id number] [place] [address] March, Non-intractable vomiting with nausea, unspecified vomiting type R11.2 and Muscle cramps R25.2 [facility] [id number] [place] [address] March, [facility] [id number] [place] [address] 17 Mar, 2019 Other chronic pain G89.29 [facility] [id number] [place] [address] March, Type 2 diabetes mellitus with hyperglycemia E11.65 ; Flank pain R10.9 ; Acute cystitis without hematuria N30.00 ; Chronic obstructive pulmonary disease, unspecified COPD type J44.9 and Moderate episode of recurrent major depressive disorder F33.1 [facility] [id number] [place] [address] March, [facility] [id number] [place] [address] March, Wheezing R06.2 and Viral upper respiratory tract infection J06.9 [facility] [id number] [place] [address] Feb, [facility] [id number] [place] [address] Feb, [facility] [id number] [place] [address] Jan, [facility] [id number] [place] [address] Jan, Acute cystitis with hematuria N30.01 and Dysuria R30.0 [facility] [id number] [place] [address] Jan, [facility] [id number] [place] [address] Dec, [facility] [id number] [place] [address] Dec, [facility] [id number] [place] [address] Dec, [facility] [id number] [place] [address] Dec, [facility] [id number], [place] [address] Dec, Routine adult health maintenance Z00.00 ; Chronic obstructive pulmonary disease, unspecified COPD type J44.9 and Encounter for immunization Z23 [facility] [address] [address] Nov, [facility] [id number] [place] [address] Nov, UTI (urinary tract infection) N39.0 and Other chronic pain G89.29 [facility] [id number] [place] [address] Nov, [facility] [id number] [place] [address] Nov, [facility] [id number] [place] [address] Nov, Painful urination R30.9 and UTI (urinary tract infection) N39.0 [facility] [address] [address] Nov, [facility] [id number] [place] [address] Nov, UTI (urinary tract infection) N39.0 [facility] [address] [address] Nov, Dysuria R30.0 ; UTI (urinary tract infection) N39.0 and Chronic pain G89.29 [facility] [id number] [address] Nov, [facility] [address] [address] Oct, Cough R05 [facility] [id number] [address] Oct, Sinusitis J32.9 [facility] [id number] [place] [address] Oct, [facility] [id number] [place] [address] Oct, UTI (urinary tract infection) N39.0 and URI (upper respiratory infection) J06.9 [facility] [id number] [place] [address] Sep, Pain in thoracic spine M54.6 [facility] [id number] [place] [address] Sep, Type 2 diabetes mellitus with hyperglycemia E11.65 [facility] [id number] [place] [address] Sep, Chronic obstructive pulmonary disease, unspecified COPD type J44.9 ; Abrasion of right ear canal, initial encounter S00.411A ; Cigarette nicotine dependence without complication F17.210 ; Right leg pain M79.604 and Seasonal allergies J30.2 [facility] [id number] [place] [address] Aug, [facility] [id number] [place] [address] Aug, [facility] [id number] [place] [address] Aug, Pain in thoracic spine M54.6 [facility] [id number] [place] [address] Aug, [facility] [address] [place] [address] Aug, Chronic obstructive pulmonary disease, unspecified COPD type J44.9 ; Complete amputation of right foot, 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 ; Cigarette nicotine dependence without complication F17.210 and BMI 40.0-44.9, adult Z68.41 [facility] [address] [place] [address] Jul, [facility] [id number] [place] [address] Jul, [facility] [address] [address] Jul, Onychomycosis B35.1 ; Onychocryptosis L60.0 and DM neuro manif type II E11.49 [facility] [address] [address] Jun, Pain in thoracic spine M54.6 [facility] [address] [address] Jun, Iron deficiency anemia due to chronic blood loss D50.0 and Hematochezia K92.1 [facility] [address] [address] Jun, Gastroenteritis K52.9 and Abnormal RBC indices R71.8 [facility] [address] [address] Jun, [facility] [address] [address] Jun, Chest congestion R09.89 and Seizures R56.9 [facility] [id number] [place] [address] May, Pain in thoracic spine M54.6 [facility] [id number] [place] [address] May, [facility] [id number] [place] [address] May, [facility] [address] [address] May, [facility] [id number] [place] [address] May, Acute non-recurrent frontal sinusitis J01.10 and Dermatitis L30.9 [facility] [id number] [address] May, [facility] [address] [place] [address] May, Pain in thoracic spine M54.6 [facility] [address] [address] May, [facility] [id number] [place] [address] May, Acute nasopharyngitis J00 [facility] [address] [place] [address] May, [facility] [id number] [place] [address] May, [facility] [id number] [place] [address] Apr, [facility] [id number] [place] [address] Apr, [facility] [address] [address] Apr, [facility] [address] [place] [address] Apr, [facility] [address] [address] Apr, Pain in right ankle and joints of right foot M25.571 [facility] [address] [address] Apr, [facility] [address] [address] Apr, Bronchitis J40 ; Pain in right ankle and joints of right foot M25.571 ; Other chronic pain G89.29 ; Prediabetes R73.03 ; Chronic obstructive pulmonary disease, unspecified COPD type J44.9 and Cigarette nicotine dependence without complication F17.210 [facility] [id number] [place] [address] 13 Apr, 2018 Seasonal allergic rhinitis, unspecified trigger J30.2 [facility] [address] [address] 08 Apr, 2018 Onychomycosis B35.1 ; Onychocryptosis L60.0 and DM neuro manif type II E11.49 [facility] [place] [address] [address] Apr, Reactive depression F32.9 ; Thoracic myofascial strain, initial encounter S29.019A and Leg cramps R25.2 [facility] [address] [address] March, [facility] [address] [address] March, Type 2 diabetes mellitus with hyperglycemia E11.65 [facility] [address] [address] March, Reactive depression F32.9 [facility] [address] [address] March, Pain in thoracic spine M54.6 and Other chronic pain G89.29 [facility] [address] [address] Feb, [facility] [address] [address] Jan, Reactive depression F32.9 ; Essential hypertension I10 ; Gastroesophageal reflux disease, esophagitis presence not specified K21.9 ; Lumbago with sciatica, left side M54.42 and Lumbago with sciatica, right side M54.41 [facility] [id number] [place] [address] Jan, Reactive depression F32.9 and Pharyngoesophageal dysphagia R13.14 [facility] [address] [address] Jan, [facility] [address] [address] Jan, Encounter for immunization Z23 [facility] [address] [address] Jan, Onychomycosis B35.1 and DM neuro manif type II E11.49 [address] [address] [address] Jan, [facility] [address] [address] Jan, Prediabetes R73.03 [facility] [address] [address] Dec, [facility] [address] [address] Dec, Essential hypertension I10 ; Mixed hyperlipidemia E78.2 ; Acquired hypothyroidism E03.9 ; Reactive depression F32.9 and Prediabetes R73.03 [address] [address] [address] Dec, [facility] [address] [address] Dec, [facility] [address] [address] Dec, DM neuro manif type II E11.49 [facility] [address] [address] Dec, Bruise T14.8XXA ; Type 2 diabetes mellitus with hyperglycemia E11.65 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 [facility] [id number] [place] [address] Oct, [facility] [address] [address] March, Onychomycosis B35.1 and DM neuro manif type II E11.49 [facility] [address] [place] [address] Jun, [facility] [id number] [address] Jun, [facility] [id number] [place] [address] Jun, COPD with acute exacerbation 491.21 [facility] [id number] [place] [address] Apr, [facility] [id number] [place] [address] Feb, [facility] [id number] [place] [address] Feb, [facility] [id number] [place] [address] Jan, [facility] [address] [address] Jan, [facility] [address] [place] [address] Jan, [facility] [address] [address] Jan, [facility] [address], [place] [address] Jan, [facility] [address] [address] Jan, [facility] [id number] [place] [address] Jan, [facility] [address] [address] Jan, [facility] [id number] [place] [address] 23 Jan, 2015 [facility] [place] [facility] [address] [id number] [place] [address] 19 Jan, 2014 [facility] [place] [facility] [address] [id number] [place] [address] 19 Jan, 2015 [facility] [place] [facility] [address] [id number] [place] [address] 18 Jan, 2014 [facility] [place] [facility] [address] [id number] [place] [address] 18 Jan, 2015 [facility] [place] [facility] [address] [id number] [place] [address] 16 Jan, 2015 [facility] [place] [facility] [address] [id number] [place] [address] 16 Jan, 2014 [facility] [place] [facility] [address] [id number] [place] [address] 16 Jan, 2015 [facility] [place] [facility] [address] [id number] [place] [address] 16 Jan, 2015 [facility] [place] [facility] [address] [id number] [place] [address] 15 Jan, 2015 [facility] [place] [facility] [address] [id number] [place] [address] 13 Jan, 2015 [facility] [place] [facility] [address] [id number] [place] [address] 13 Jan, 2015 [facility] [place] [facility] [address] [id number] [place] [address] 13 Jan, 2015 [facility] [place] [facility] [address] [id number] [place] [address] 13 Jan, 2015 [facility] [place] [facility] [address] [id number] [place] [address] 12 Jan, 2015 [facility] [place] [facility] [address] [id number] [place] [address] 04 Jan, 2014 [facility] [place] [facility] [address] [id number] [place] [address] Jan, [facility] [place] [facility] [address] [id number] [place] [address] Dec, 2014 [facility] [place] [facility] [address] [id number] [place] [address] Dec, 2014 [facility] [place] [facility] [address] [id number] [place] [address] Dec, 2014 [facility] [place] [facility] [address] [id number] [place] [address] Dec, 2014 [facility] [place] [facility] [address] [id number] [place] [address] Dec, 2014 [facility] [place] [facility] [address] [id number] [place] [address] Dec, [facility] [place] [facility] [address] [id number] [place] [address] Dec, [facility] [place] [facility] [address] [id number] [place] [address] Dec, [facility] [place] [facility] [address] [facility] [id number] [place] [address] Dec, [facility] [place] [facility] [address] [facility] [id number] [place] [address] Dec, [facility] [place] [facility] [address] [id number] [address] Dec, 2014 [facility] [place] [facility] [address] [id number] [place] [address] Dec, [facility] [place] [facility] [address] [id number] [address] Nov, [facility] [place] [facility] [address] [id number] [address] Nov, [facility] [place] [facility] [address] [id number] [place] [address] Nov, [facility] [address] [id number] [place] [address] Nov, [facility] [place] [facility] [address] [id number] [place] [address] Nov, [facility] [place] [facility] [address] [id number] [place] [address] Nov, [facility] [place] [facility] [address] [id number] [place] [address] Nov, [facility] [place] [facility] [address] [id number] [place] [address] Nov, [facility] [place] [facility] [address] [id number] [place] [address] Nov, [facility] [address] [id number] [place] [address] Nov, [facility] [place] [facility] [address] [id number] [place] [address] Nov, [facility] [place] [facility] [address] [id number] [place] [address] Nov, [facility] [place] [facility] [address] [id number] [place] [address] Oct, [facility] [place] [facility] [address] [id number] [place] [address] Oct, [facility] [place] [facility] [address] [id number] [place] [address] Oct, [facility] [place] [facility] [address] [id number] [place] [address] Oct, [facility] [place] [facility] [address] [id number] [place] [address] Oct, [facility] [place] [facility] [address] [id number] [place] [address] Oct, [facility] [place] [facility] [address] [id number] [place] [address] 23 Oct, 2014 [facility] [place] [facility] [address] [id number] [place] [address] 23 Oct, 2014 [facility] [place] [facility] [address] [id number] [place] [address] 17 Oct, 2014 [facility] [place] [facility] [address] [id number] [place] [address] 17 Oct, 2014 [facility] [place] [facility] [address] [id number] [place] [address] 16 Oct, 2014 [facility] [place] [facility] [address] [id number] [place] [address] 16 Oct, 2014 [facility] [place] [facility] [address] [id number] [place] [address] 15 Oct, 2014 [facility] [place] [facility] [address] [id number] [place] [address] 15 Oct, 2014 [facility] [place] [facility] [address] [id number] [place] [address] Oct, [facility] [place] [facility] [address] [id number] [place] [address] 24 Sep, 2014 [facility] [place] [facility] [address] [id number] [place] [address] Sep, [facility] [place] [facility] [address] [id number] [place] [address] Sep, [facility] [place] [facility] [address] [id number] [place] [address] Sep, [facility] [place] [facility] [address] [id number] [place] [address] Aug, [facility] [place] [facility] [address] [id number] [place] [address] Aug, [facility] [place] [facility] [address] [id number] [place] [address] Aug, [facility] [place] [facility] [address] [id number] [place] [address] Aug, [facility] [place] [facility] [address] [id number] [place] [address] Aug, [facility] [place] [facility] [address] [id number] [place] [address] Aug, [facility] [place] [facility] [address] [id number] [place] [address] Jul, [facility] [place] [facility] [address] [id number] [place] [address] 29 Jul, 2014 [facility] [place] [facility] [address] [id number] [place] [address] 15 Jul, 2014 [facility] [place] [facility] [address] [id number] [place] [address] Jul, [facility] [place] [facility] [address] [id number] [address] Jul, [facility] [place] [facility] [address] [id number] [place] [address] Jul, [facility] [place] [facility] [address] [id number] [place] [address] Jun, [facility] [place] [facility] [address] [id number] [address] Jun, [facility] [place] [facility] [address] [id number], [place] [address] Jun, [facility] [place] [facility] [address] [id number] [place] [address] Jun, [facility] [place] [facility] [address] [id number] [address] Jun, [facility] [place] [facility] [address] [id number] [place] [address] Jun, [facility] [place] [facility] [address] [id number] [place] [address] Jun, [facility] [place] [facility] [address] [id number] [place] [address] May, [facility] [place] [facility] [address] [id number] [place] [address] May, [facility] [place] [facility] [address] [id number] [place] [address] May, [facility] [place] [facility] [address] [id number] [place] [address] May, [facility] [place] [facility] [address] [id number] [place] [address] May, [facility] [place] [facility] [address] [id number] [place] [address] May, [facility] [place] [facility] [address] [id number] [place] [address] May, [facility] [place] [facility] [address] [id number] [place] [address] May, [facility] [place] [facility] [address] [id number] [place] [address] May, [facility] [place] [facility] [address] [id number] [place] [address] May, [facility] [place] [facility] [address] [id number] [place] [address] May, [facility] [place] [facility] [address] [id number] [place] [address] May, [facility] [place] [facility] [address] [id number] [place] [address] Apr, [facility] [place] [facility] [address] [id number] [place] [address] Apr, [facility] [place] [facility] [address] [id number] [place] [address] Apr, [facility] [place] [facility] [address] [id number] [place] [address] Apr, [facility] [place] [facility] [address] [id number] [place] [address] Apr, [facility] [place] [facility] [address] [id number] [place] [address] Apr, [facility] [place] [facility] [address] [id number] [place] [address] Apr, [facility] [place] [facility] [address] [id number] [place] [address] Apr, [facility] [place] [facility] [address] [id number] [place] [address] Apr, [facility] [place] [facility] [address] [id number] [place] [address] Apr, [facility] [place] [facility] [address] [id number] [place] [address] March, [facility] [place] [facility] [address] [id number] [place] [address] March, [facility] [place] [facility] [address] [id number] [place] [address] March, [facility] [place] [facility] [address] [id number] [place] [address] March, [facility] [place] [facility] [address] [id number] [place] [address] March, [facility] [place] [facility] [address] [id number] [place] [address] March, [facility] [place] [facility] [address] [id number] [place] [address] Feb, [facility] [place] [facility] [address] [id number] [place] [address] Feb, [facility] [place] [facility] [address] [id number] [place] [address] Feb, [facility] [place] [facility] [address] [id number] [place] [address] Feb, [facility] [place] [facility] [address] [id number] [place] [address] Feb, [facility] [place] [facility] [address] [id number] [place] [address] Feb, [facility] [place] [facility] [address] [id number] [place] [address] Feb, [facility] [place] [facility] [address] [id number] [place] [address] Feb, [facility] [place] [facility] [address] [id number] [place] [address] Feb, [facility] [place] [facility] [address] [id number] [place] [address] Feb, [facility] [place] [facility] [address] [id number] [place] [address] Jan, [facility] [place] [facility] [address] [id number] [place] [address] Jan, [facility] [place] [facility] [address] [id number] [place] [address] Jan, [facility] [place] [facility] [address] [id number] [place] [address] Jan, [facility] [place] [facility] [address] [id number] [place] [address] Jan, [facility] [place] [facility] [address] [id number] [place] [address] Jan, [facility] [place] [facility] [address] [id number] [place] [address] Jan, [facility] [place] [facility] [address] [id number] [place] [address] Jan, [facility] [place] [facility] [address] [id number] [place] [address] Dec, [facility] [place] [facility] [address] [id number] [place] [address] Dec, [facility] [place] [facility] [address] [id number] [place] [address] Dec, [facility] [place] [facility] [address] [id number] [place] [address] Dec, [facility] [place] [facility] [address] [id number] [place] [address] Dec, [facility] [place] [facility] [address] [id number] [place] [address] Dec, [facility] [place] [facility] [address] [id number] [place] [address] Dec, [facility] [place] [facility] [address] [id number] [place] [address] Dec, [facility] [place] [facility] [address] [id number] [place] [address] Nov, [facility] [place] [facility] [address] [id number] [place] [address] Nov, [facility] [place] [facility] [address] [id number] [place] [address] Nov, [facility] [place] [facility] [address] [id number] [place] [address] Nov, [facility] [place] [facility] [address] [id number] [place] [address] Nov, [facility] [place] [facility] [address] [id number] [place] [address] Nov, [facility] [place] [facility] [address] [id number] [place] [address] Nov, [facility] [place] [facility] [address] [id number] [address] Nov, [facility] [place] [facility] [address] [id number] [place] [address] Nov, [facility] [place] [facility] [address] [id number], [place] [address] Nov, [facility] [place] [facility] [address] [id number] [place] [address] Nov, [facility] [place] [facility] [address] [id number], [place] [address] Oct, [facility] [place] [facility] [address] [id number] [place] [address] Oct, [facility] [place] [facility] [address] [id number] [place] [address] Oct, [facility] [place] [facility] [address] [id number] [place] [address] Oct, [facility] [place] [facility] [address] [id number], [place] [address] Sep, [facility] [place] [facility] [address] [id number], [place] [address] Sep, [facility] [place] [facility] [address] [id number] [place] [address] Sep, [facility] [place] [facility] [address] [id number], [place] [address] Sep, [facility] [place] [facility] [address] [id number], [place] [address] Aug, [facility] [place] [facility] [address] [id number] [place] [address] Aug, [facility] [place] [facility] [address] [id number], [place] [address] Aug, [facility] [place] [facility] [address] [id number] [place] [address] Aug, [facility] [place] [facility] [address] [id number] [place] [address] 24 Aug, 2013 [facility] [address] [id number] [place] [address] 24 Aug, 2013 [facility] [place] [facility] [address] [id number] [place] [address] 04 Aug, 2013 [facility] [address] [id number] [place] [address] Aug, [facility] [address] [id number] [place] [address] 28 Sep, 2012 [facility] [address] [id number] [place] [address] 27 Sep, 2012 [facility] [address] [id number] [place] [address] 26 Sep, 2012 [facility] [address] [id number] [place] [address] 24 Sep, 2012 [facility] [address] [id number] [place] [address] 24 Sep, 2012 [facility] [place] [facility] [address] [id number] [place] [address] 23 Sep, 2012 [facility] [address] [id number] [place] [address] 19 Sep, 2012 [facility] [place] [facility] [address] [id number] [place] [address] 18 Sep, 2012 [facility] [address] [id number] [place] [address] 17 Sep, 2012 [facility] [place] [facility] [address] [id number] [place] [address] 16 Sep, 2012 [facility] [place] [facility] [address] [id number] [place] [address] 13 Sep, 2012 [facility] [place] [facility] [address] [id number] [place] [address] Jul, [facility] [place] [facility] [address] [id number] [place] [address] 12 Jul, 2013 [facility] [place] [facility] [address] [id number] [place] [address] Jul, [facility] [place] [facility] [address] [id number] [place] [address] Jul, [facility] [place] [facility] [address] [id number] [place] [address] Jun, [facility] [place] [facility] [address] [id number] [place] [address] Jun, [facility] [place] [facility] [address] [id number] [place] [address] Jun, [facility] [place] [facility] [address] [id number] [place] [address] May, [facility] [place] [facility] [address] [id number] [place] [address] May, [facility] [place] [facility] [address] [id number] [place] [address] May, [facility] [place] [facility] [address] [id number] [place] [address] May, [facility] [place] [facility] [address] [id number] [place] [address] Apr, [facility] [place] [facility] [address] [id number] [place] [address] Apr, [facility] [place] [facility] [address] [id number] [place] [address] Apr, [facility] [place] [facility] [address] [id number] [place] [address] Apr, [facility] [place] [facility] [address] [id number] [place] [address] March, [facility] [place] [facility] [address] [id number] [place] [address] March, [facility] [address] [id number] [place] [address] March, [facility] [address] [id number] [place] [address] Feb, [facility] [address] [id number] [place] [address] Feb, [facility] [address] [id number] [place] [address] Jan, [facility] [address] [id number] [place] [address] Jan, [facility] [address] [id number] [place] [address] Jan, [facility] [address] [id number] [address] Jan, [facility] [address] [facility] [id number] [address] Jan, [facility] [address] [id number] [place] [address] Dec, [facility] [address] [id number] [address] Dec, [facility] [id number] [place] [address] Dec, [facility] [address] [facility] [id number], [place] [address] Dec, [facility] [place] [facility] [address] [id number] [place] [address] 18 Dec, 2012 [facility] [place] [facility] [address] [facility] [id number], [place] [address] 06 Dec, 2012 [facility] [id number] [address] 04 Dec, 2012 [facility] [address] [id number] [place] [address] Dec, [facility] [place] [facility] [address] [id number] [place] [address] Nov, [facility] [place] [facility] [address] [id number] [place] [address] Nov, [facility] [place] [facility] [address] [id number] [place] [address] Nov, [facility] [address] [id number] [place] [address] Nov, [facility] [place] [facility] [address] [id number] [place] [address] Nov, [facility] [place] [facility] [address] [id number] [place] [address] Nov, [facility] [address] [id number] [place] [address] Nov, [facility] [place] [facility] [address] [id number] [place] [address] Oct, [facility] [place] [facility] [address] [id number] [place] [address] Oct, [facility] [place] [facility] [address] [id number] [place] [address] Oct, [facility] [place] [facility] [address] [id number] [place] [address] Oct, [facility] [place] [facility] [address] [id number] [place] [address] Oct, [facility] [place] [facility] [address] [id number] [place] [address] Oct, [facility] [place] [facility] [address] [id number] [place] [address] Oct, [facility] [place] [facility] [address] [id number] [place] [address] Oct, [facility] [place] [facility] [address] [id number] [place] [address] Sep, [facility] [place] [facility] [address] [id number] [place] [address] Sep, [facility] [place] [facility] [address] [id number] [place] [address] Sep, [facility] [place] [facility] [address] [id number] [place] [address] Sep, [facility] [place] [facility] [address] [id number] [place] [address] Sep, [facility] [place] [facility] [address] [id number] [place] [address] Sep, [facility] [place] [facility] [address] [id number], [place] [address] Sep, [facility] [place] [facility] [address] [id number], [place] [address] Sep, [facility] [place] [facility] [address] [id number] [place] [address] Sep, [facility] [place] [facility] [address] [id number] [place] [address] Sep, [facility] [place] [facility] [address] [id number] [place] [address] Sep, [facility] [place] [facility] [address] [id number], [place] [address] Sep, [facility] [place] [facility] [address] [id number], [place] [address] Sep, [facility] [place] [facility] [address] [id number], [place] [address] Sep, [facility] [place] [facility] [address] [id number], [place] [address] Sep, [facility] [place] [facility] [address] [id number] [place] [address] 05 Sep, 2012 [facility] [place] [facility] [address] [id number] [place] [address] 05 Sep, 2012 [facility] [place] [facility] [address] [id number] [place] [address] Sep, [facility] [place] [facility] [address] [id number] [place] [address] Sep, [facility] [place] [facility] [address] [id number] [place] [address] Sep, [facility] [place] [facility] [address] [id number] [place] [address] Aug, [facility] [place] [facility] [address] [id number] [place] [address] Aug, [facility] [place] [facility] [address] [id number] [place] [address] 29 Aug, 2012 [facility] [place] [facility] [address] [id number] [place] [address] Aug, [facility] [place] [facility] [address] [id number] [place] [address] 27 Aug, 2012 [facility] [place] [facility] [address] [facility] [id number] [place] [address] Aug, [facility] [place] [facility] [address] [id number] [place] [address] 18 Aug, 2012 [facility] [place] [facility] [address] [id number] [place] [address] 17 Aug, 2012 [facility] [place] [facility] [address] [id number] [place] [address] 16 Aug, 2012 [facility] [place] [facility] [address] [id number] [place] [address] 16 Aug, 2012 [facility] [place] [facility] [address] [id number] [place] [address] Aug, [facility] [place] [facility] [address] [id number] [place] [address] Aug, [facility] [place] [facility] [address] [id number] [place] [address] Aug, [facility] [place] [facility] [address] [id number] [place] [address] Aug, [facility] [place] [facility] [address] [id number] [place] [address] Aug, [facility] [place] [facility] [address] [id number] [place] [address] 14 Jul, 2012 [facility] [place] [facility] [address] [id number] [place] [address] Jul, [facility] [place] [facility] [address] [id number] [place] [address] Jun, [facility] [place] [facility] [address] [id number], [place] [address] Jun, [facility] [place] [facility] [address] [id number] [place] [address] May, [facility] [place] [facility] [address] [id number] [place] [address] May, [facility] [place] [facility] [address] [id number], [place] [address] May, [facility] [place] [facility] [address] [id number], [place] [address] May, [facility] [place] [facility] [address] [id number] [place] [address] May, [facility] [place] [facility] [address] [facility] [id number], [place] [address] May, [facility] [place] [facility] [address] [id number] [place] [address] Apr, [facility] [place] [facility] [address] [id number] [place] [address] 15 Apr, 2012 [facility] [address] [id number] [place] [address] March, [facility] [address] [id number] [place] [address] March, [facility] [address] [id number] [place] [address] March, [facility] [address] [id number] [place] [address] March, [facility] [address] [id number] [place] [address] March, [facility] [address] [id number] [place] [address] March, [facility] [address] [id number] [place] [address] 30 Feb, 2012 [facility] [address] [id number] [place] [address] Feb, [facility] [address] [id number] [place] [address] Feb, [facility] [address] [id number] [place] [address] Feb, [facility] [address] [id number] [place] [address] Feb, [facility] [address] [id number] [place] [address] 19 Feb, 2012 [facility] [place] [facility] [address] [id number] [place] [address] [address] Feb, [address] [place] [facility] [address] [id number] [place] [address] Feb, [facility] [address] [id number] [place] [address] 04 Feb, 2012 [facility] [place] [facility] [address] [id number] [place] [address] 30 Jan, 2012 [facility] [place] [facility] [address] [id number] [place] [address] 27 Jan, 2012 [facility] [place] [facility] [address] [id number] [place] [address] Jan, [facility] [place] [facility] [address] [id number] [place] [address] 22 Jan, 2012 [facility] [address] [id number] [place] [address] Jan, [facility] [place] [facility] [address] [id number] [place] [address] 20 Jan, 2012 [facility] [address] [id number] [place] [address] 14 Jan, 2012 [facility] [address] [id number] [place] [address] Jan, [facility] [place] [facility] [address] [id number] [place] [address] Jan, [facility] [place] [facility] [address] [id number] [place] [address] 08 Jan, 2012 [facility] [place] [facility] [address] [id number] [place] [address] Jan, [facility] [place] [facility] [address] [id number] [place] [address] 06 Jan, 2012 [facility] [place] [facility] [address] [id number] [place] [address] Jan, [facility] [place] [facility] [address] [id number] [place] [address] Jan, [facility] [place] [facility] [address] [id number] [place] [address] Dec, [facility] [place] [facility] [address] [id number] [place] [address] Dec, [facility] [address] [id number] [place] [address] Dec, [facility] [address] [id number] [place] [address] 23 Dec, 2011 [facility] [address] [id number] [place] [address] 16 Dec, 2011 [facility] [address] [id number] [place] [address] 08 Dec, 2011 [facility] [address] [id number] [place] [address] Dec, [facility] [address] [facility] [id number] [place] [address] Dec, [facility] [address] [facility] [id number] [place] [address] Dec, [facility] [address] [facility] [id number] [place] [address] Nov, [facility] [address] [facility] [id number] [place] [address] Nov, [facility] [address] [facility] [id number] [place] [address] Nov, [facility] [address] [facility] [id number] [place] [address] Nov, [facility] [address] [facility] [id number] [place] [address] Oct, [facility] [place] [facility] [address] [id number] [place] [address] Oct, [facility] [place] [facility] [address] [facility] [id number] [place] [address] Oct, [facility] [address] [facility] [id number] [place] [address] Oct, [facility] [place] [facility] [address] [id number] [place] [address] Oct, [facility] [place] [facility] [address] [id number] [place] [address] Oct, [facility] [place] [facility] [address] [id number] [place] [address] Oct, [facility] [place] [facility] [address] [id number] [place] [address] Sep, [facility] [place] [facility] [address] [id number] [place] [address] Sep, [facility] [place] [facility] [address] [id number] [place] [address] Sep, [facility] [place] [facility] [address] [id number] [place] [address] Sep, [facility] [place] [facility] [address] [id number] [place] [address] Sep, [facility] [place] [facility] [address] [id number] [place] [address] Sep, [facility] [place] [facility] [address] [id number] [address] Sep, [facility] [place] [facility] [address] [id number] [place] [address] Sep, [facility] [place] [facility] [address] [id number], [place] [address] Sep, [facility] [place] [facility] [address] [id number] [place] [address] Aug, [facility] [place] [facility] [address] [id number] [place] [address] Aug, [facility] [place] [facility] [address] [id number], [place] [address] Aug, [facility] [place] [facility] [address] [id number], [place] [address] May, [facility] [address] [id number] [place] [address] Nov, [facility] [address] [id number] [place] [address] Oct, [facility] [address] [id number] [place] [address] Oct, [facility] [address] [id number] [place] [address] 30 Oct, 2010 [facility] [address] [id number] [place] [address] Oct, [facility] [address] [id number] [place] [address] Oct, [facility] [address] [id number] [place] [address] Sep, [facility] [address] [id number] [place] [address] Sep, [facility] [address] [id number] [place] [address] 14 Jul, 2010 [facility] [address] [id number] [place] [address] Oct, [facility] [address] [id number], [place] [address] Oct, [facility] [place] [facility] [address] [id number], [place] [address] Oct, [facility] [place] [facility] [address] [id number], [place] [address] Oct, [facility] [place] [facility] [address] [id number], [place] [address] 30 Sep, 2009 [facility] [place] [facility] [address] [id number] [place] [address] Sep, [facility] [place] [facility] [address] [facility] [id number] [place] [address] 13 Sep, 2009 [facility] [address] [id number] [address] Sep, [facility] [address] [id number] [address] Sep, [facility] [address] [id number] [address] Jul, [facility] [address] [id number] [address] Apr, [facility] [id number] [address] Dec, IMMUNIZATIONS No Known Immunizations SOCIAL HISTORY Never Assessed REASON FOR VISIT EMR-[facility] PLAN OF CARE VITAL SIGNS MEDICATIONS Medication Instructions Dosage Frequency Start Date End Date Duration Status Paxil 10 mg 1 tablet by Oral route 1 time per day fluoxetine is stopped Dec, Active NovoLog Flexpen 100 unit/mL 10 units by Subcutaneous route 4 times per day Aug, Active Oxybutynin Chloride 15 mg take 1 tablet (15 mg) by oral route once daily Jan, Active Bactrim DS 800-160 mg 1 tablet by Oral route 2 times per day for 10 day(s) Nov, Active Metoprolol Tartrate 25 mg 0.5 Tablet by Oral route 2 daily Dec, Active PredniSONE 20 mg 2 tablet by Oral route 1 time per day for 5 day(s) Nov, Active Loratadine 10 mg take 1 tablet by Oral route 1 time per day take at hs Nov, Active Plavix 75 mg take 1 tablet (75 mg) by oral route once daily Dec, Active Ciprofloxacin 500 mg 1 tablet by Oral route every 12 hours for 7 day(s) Jul, Active Combivent Respimat 20-100 mcg/actuation inhale 1 puff ; may take additional puffs as needed 4 times per day not to exceed 6 puffs in 24hrs Apr, Active Nitroglycerin 0.[address] 1 tablet by Buccal route 1 time per day until relief is obtained PRN March, Active Symbicort 80-4.5 mcg/actuation inhale 2 puffs by inhalation route 2 times per day in the morning and evening March, Active Neurontin 300 mg 2 capsule by Oral route 3 times per day Dec, Active ProAir HFA 90 mcg/actuation inhale 2 puffs by Inhalation route every 4 hours as needed PRN shortness of breath/cough March, Active Diflucan 100 mg 1 tablet by Oral route 1 time per day for 5 days Jan, Active metformin 500 mg 1 tablet by Oral route 2 times per day Oct, Active Dbvnagil-Pscyasnlh-TC 3.5-10,000-1 mg-unit/mL-% 2 drop by Otic route 4 times per day for 7 day(s) Jan, Active levothyroxine 50 mcg 1 tablet by Oral route 1 time per day NEW DOSE Dec, Active Lipitor 40 mg 1 tablet by Oral route 1 time per day Dec, Active Hydrocodone-Acetaminophen 5-325 mg 1 Tablet by Oral route every 8-12 hours PRN MUST LAST 30 DAYS Jan, Active Doxycycline Hyclate 100 mg 1 tablet by Oral route 2 times per day for 10 days Aug, Active Famotidine 20 mg take 1 tablet (20 mg) by oral route 2 times per day Dec, Active Levaquin 500 mg 1 tablet by Oral route every 24 hours for 10 days Nov, Active RESULTS No Results PROCEDURES No Known [...]
--- OUTSIDE RECORDS SUMMARY | 2019-06-14 11:18 | XMS REPORT ---
Author Author Migration, Doctor Organization [facility] Address Unknown Phone Unavailable Care Team Providers Care Segregator Name Role Phone Migration, Doctor Unavailable Unavailable PROBLEMS Type Condition ICD9-CM Code AWC45-SM Code Onset Dates Condition Status SNOMED Code Problem Reactive depression F32.9 Active 55540448 Problem Essential hypertension I10 Active 28140468 Problem Prediabetes R73.03 Active 566059408 Problem Mixed hyperlipidemia E78.2 Active 867201632 Problem Acquired hypothyroidism E03.9 Active 568267453 Problem Lumbago with sciatica, left side M54.42 Active 069389720 Problem Gastroesophageal reflux disease, esophagitis presence not specified K21.9 Active 605372784 Problem Chronic obstructive pulmonary disease, unspecified COPD type J44.9 Active 85531537 Problem Cigarette nicotine dependence without complication F17.210 Active 48880211 Problem DM neuro manif type II E11.49 Active 55108520 Problem Chronic pain G89.29 Active 03772640 Problem Other chronic pain G89.29 Active 14911098 Problem Moderate episode of recurrent major depressive disorder F33.1 Active 576400558 Problem Lumbago with sciatica, right side M54.41 Active [id number] Problem Seizures R56.9 Active 85822637 Problem Iron deficiency anemia due to chronic blood loss D50.0 Active 961429111 Problem Seasonal allergies J30.2 Active 959906434 Problem Sinusitis J32.9 Active 18344972 ALLERGIES No Information ENCOUNTERS Encounter Location Date Diagnosis [facility] [id number] [address] Apr, [facility] [address], [place] [address] March, [facility] [address], [place] [address] March, Other chronic pain G89.29 [facility] [id number], [place] [address] March, Type 2 diabetes mellitus with hyperglycemia E11.65 ; Flank pain R10.9 ; Acute cystitis without hematuria N30.00 ; Chronic obstructive pulmonary disease, unspecified COPD type J44.9 and Moderate episode of recurrent major depressive disorder F33.1 [facility] [id number] [place] [address] March, [facility] [id number] [place] [address] March, Wheezing R06.2 and Viral upper respiratory tract infection J06.9 [facility] [id number] [place] [address] Feb, [facility] [id number] [place] [address] Feb, [facility] [id number] [place] [address] Jan, [facility] [id number] [place] [address] Jan, Acute cystitis with hematuria N30.01 and Dysuria R30.0 [facility] [id number] [place] [address] Jan, [facility] [id number] [place] [address] Dec, [facility] [id number] [place] [address] Dec, [facility] [id number] [place] [address] Dec, [facility] [id number] [place] [address] Dec, [facility] [id number] [place] [address] Dec, Routine adult health maintenance Z00.00 ; Chronic obstructive pulmonary disease, unspecified COPD type J44.9 and Encounter for immunization Z23 [facility] [address], [place] [address] Nov, [facility] [address] [place] [address] Nov, UTI (urinary tract infection) N39.0 and Other chronic pain G89.29 [facility] [address], [place] [address] Nov, [facility] [address] [place] [address] Nov, [facility] [address] [place] [address] Nov, Painful urination R30.9 and UTI (urinary tract infection) N39.0 [facility] [address] [place] [address] Nov, [facility] [address], [place] [address] Nov, UTI (urinary tract infection) N39.0 [facility] [address] [place] [address] Nov, Dysuria R30.0 ; UTI (urinary tract infection) N39.0 and Chronic pain G89.29 [facility] [address], [place] [address] Nov, [facility] [address], [place] [address] Oct, Cough R05 [facility] [address] [place] [address] 14 Oct, 2018 Sinusitis J32.9 [facility] [address], [place] [address] Oct, [facility] [address] [place] [address] Oct, UTI (urinary tract infection) N39.0 and URI (upper respiratory infection) J06.9 [facility] [id number] [place] [address] Sep, Pain in thoracic spine M54.6 [facility] [id number] [place] [address] Sep, Type 2 diabetes mellitus with hyperglycemia E11.65 [facility] [address] [address] Sep, Chronic obstructive pulmonary disease, unspecified COPD type J44.9 ; Abrasion of right ear canal, initial encounter S00.411A ; Cigarette nicotine dependence without complication F17.210 ; Right leg pain M79.604 and Seasonal allergies J30.2 [facility] [id number] [place] [address] Aug, [facility] [id number] [place] [address] Aug, [facility] [id number] [place] [address] Aug, Pain in thoracic spine M54.6 [facility] [id number] [place] [address] Aug, [facility] [id number] [place] [address] Aug, Chronic obstructive pulmonary disease, unspecified COPD type J44.9 ; Complete amputation of right foot, 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 ; Cigarette nicotine dependence without complication F17.210 and BMI 40.0-44.9, adult Z68.41 [facility] [id number] [place] [address] Jul, [facility] [id number] [place] [address] Jul, [address] [facility] [address] [address] Jul, Onychomycosis B35.1 ; Onychocryptosis L60.0 and DM neuro manif type II E11.49 [facility] [address] [address] Jun, Pain in thoracic spine M54.6 [place] [facility] [address] [address] Jun, Iron deficiency anemia due to chronic blood loss D50.0 and Hematochezia K92.1 [address] [facility] [address] [address] Jun, Gastroenteritis K52.9 and Abnormal RBC indices R71.8 [address] [address] [address] Jun, [place] [facility] [address] [address] Jun, Chest congestion R09.89 and Seizures R56.9 [place] [facility] [address] [address] May, Pain in thoracic spine M54.6 [facility] [address] [address] May, [place] [address] [address] May, [place] [facility] [address] [address] May, [address] [address] [address] May, Acute non-recurrent frontal sinusitis J01.10 and Dermatitis L30.9 [place] [address] [address] May, [place] [facility] [address] [address] May, Pain in thoracic spine M54.6 [facility] [id number] [place] [address] May, [facility] [id number] [place] [address] May, Acute nasopharyngitis J00 [facility] [id number] [place] [address] May, [facility] [id number] [place] [address] May, [facility] [id number] [place] [address] Apr, [facility] [id number] [place] [address] Apr, [facility] [id number] [place] [address] Apr, [facility] [id number] [place] [address] Apr, [facility] [id number] [place] [address] Apr, Pain in right ankle and joints of right foot M25.571 [facility] [id number] [place] [address] Apr, [facility] [id number] [place] [address] Apr, Bronchitis J40 ; Pain in right ankle and joints of right foot M25.571 ; Other chronic pain G89.29 ; Prediabetes R73.03 ; Chronic obstructive pulmonary disease, unspecified COPD type J44.9 and Cigarette nicotine dependence without complication F17.210 [facility] [address], [place] [address] 13 Apr, 2018 Seasonal allergic rhinitis, unspecified trigger J30.2 [facility] [id number] [place] [address] 08 Apr, 2018 Onychomycosis B35.1 ; Onychocryptosis L60.0 and DM neuro manif type II E11.49 [facility] [id number] [place] [address] Apr, Reactive depression F32.9 ; Thoracic myofascial strain, initial encounter S29.019A and Leg cramps R25.2 [facility] [id number] [place] [address] March, [place] [address] March, Type 2 diabetes mellitus with hyperglycemia E11.65 [place] [facility] [address] [address] March, Reactive depression F32.9 [address] [address] March, Pain in thoracic spine M54.6 and Other chronic pain G89.29 [facility] [id number] [place] [address] Feb, [id number] [place] [address] Jan, Reactive depression F32.9 ; Essential hypertension I10 ; Gastroesophageal reflux disease, esophagitis presence not specified K21.9 ; Lumbago with sciatica, left side M54.42 and Lumbago with sciatica, right side M54.41 [facility] [id number] [place] [address] Jan, Reactive depression F32.9 and Pharyngoesophageal dysphagia R13.14 [facility] [id number] [place] [address] Jan, [address] [address] Jan, Encounter for immunization Z23 [facility] [id number] [place] [address] Jan, Onychomycosis B35.1 and DM neuro manif type II E11.49 [facility] [address] [address] Jan, [address] [address] Jan, Prediabetes R73.03 [facility] [address] [address] Dec, [address] [place] [address] Dec, Essential hypertension I10 ; Mixed hyperlipidemia E78.2 ; Acquired hypothyroidism E03.9 ; Reactive depression F32.9 and Prediabetes R73.03 [address] [address] Dec, [place] [address] Dec, [address] [place] [address] Dec, DM neuro manif type II E11.49 [facility] [address] [address] Dec, Bruise T14.8XXA ; Type 2 diabetes mellitus with hyperglycemia E11.65 and USP current use of insulin Z79.4 [id number] [place] [address] Oct, [address] [address] March, Onychomycosis B35.1 and DM neuro manif type II E11.49 [address] [place] [address] Jun, [facility] [address] [id number] [place] [address] Jun, [facility] [address] [id number] [place] [address] Jun, COPD with acute exacerbation 491.21 [facility] [address] [id number] [place] [address] Apr, [facility] [address] [id number] [place] [address] Feb, [facility] [address] [id number] [place] [address] Feb, [facility] [address] [id number] [place] [address] Jan, [facility] [address] [id number] [place] [address] Jan, [facility] [address] [id number] [place] [address] Jan, [facility] [address] [id number] [place] [address] Jan, [facility] [address] [id number] [place] [address] Jan, [facility] [address] [id number] [place] [address] Jan, [facility] [address] [id number] [place] [address] Jan, [facility] [address] [id number] [place] [address] Jan, [facility] [address] [id number] [place] [address] Jan, [facility] [address] [id number] [place] [address] Jan, [facility] [place] [facility] [address] [id number] [place] [address] 19 Jan, 2014 [facility] [place] [facility] [address] [id number] [place] [address] 18 Jan, 2014 [facility] [place] [facility] [address] [id number] [place] [address] 18 Jan, 2014 [facility] [place] [facility] [address] [id number] [place] [address] 16 Jan, 2014 [facility] [place] [facility] [address] [id number] [place] [address] 16 Jan, 2014 [facility] [place] [facility] [address] [id number] [place] [address] 16 Jan, 2014 [facility] [place] [facility] [address] [id number] [place] [address] 16 Jan, 2014 [facility] [place] [facility] [address] [id number] [place] [address] 15 Jan, 2015 [facility] [place] [facility] [address] [id number] [place] [address] 13 Jan, 2015 [facility] [place] [facility] [address] [id number] [place] [address] 13 Jan, 2015 [facility] [place] [facility] [address] [id number] [place] [address] 13 Jan, 2015 [facility] [place] [facility] [address] [id number] [place] [address] 13 Jan, 2014 [facility] [place] [facility] [address] [id number] [place] [address] 12 Jan, 2015 [facility] [place] [facility] [address] [id number] [place] [address] 04 Jan, 2015 [facility] [place] [facility] [address] [id number] [place] [address] 04 Jan, 2015 [facility] [place] [facility] [address] [id number] [place] [address] Dec, 2014 [facility] [place] [facility] [address] [id number] [place] [address] Dec, 2014 [facility] [place] [facility] [address] [id number] [place] [address] Dec, 2014 [facility] [place] [facility] [address] [id number] [place] [address] Dec, 2014 [facility] [place] [facility] [address] [id number] [place] [address] Dec, 2014 [facility] [place] [facility] [address] [id number] [place] [address] Dec, 2014 [facility] [place] [facility] [address] [facility] [id number] [place] [address] Dec, 2014 [facility] [place] [facility] [address] [facility] [id number] [place] [address] Dec, 2014 [facility] [place] [facility] [address] [facility] [id number] [place] [address] Dec, [facility] [place] [facility] [address] [facility] [id number] [place] [address] Dec, [facility] [place] [facility] [address] [facility] [id number] [place] [address] Dec, [facility] [place] [facility] [address] [facility] [id number] [place] [address] Dec, [facility] [place] [facility] [address] [id number] [address] Nov, [facility] [place] [facility] [address] [id number] [place] [address] Nov, [facility] [place] [facility] [address] [facility] [id number] [place] [address] Nov, [facility] [place] [facility] [address] [facility] [id number] [address] Nov, [facility] [place] [facility] [address] [id number] [place] [address] Nov, [facility] [place] [facility] [address] [id number] [place] [address] Nov, [facility] [place] [facility] [address] [id number] [place] [address] Nov, [facility] [place] [facility] [address] [id number] [place] [address] Nov, [facility] [place] [facility] [address] [id number] [place] [address] Nov, [facility] [place] [facility] [address] [id number] [place] [address] Nov, [facility] [place] [facility] [address] [id number] [place] [address] Nov, [facility] [place] [facility] [address] [id number] [place] [address] Nov, [facility] [place] [facility] [address] [id number] [place] [address] Oct, [facility] [place] [facility] [address] [id number] [place] [address] Oct, [facility] [place] [facility] [address] [id number] [place] [address] Oct, [facility] [place] [facility] [address] [id number] [place] [address] Oct, [facility] [place] [facility] [address] [id number] [place] [address] Oct, [facility] [place] [facility] [address] [id number] [place] [address] Oct, [facility] [place] [facility] [address] [id number] [place] [address] Oct, [facility] [place] [facility] [address] [id number] [place] [address] 23 Oct, 2014 [facility] [place] [facility] [address] [id number] [place] [address] 17 Oct, 2014 [facility] [place] [facility] [address] [id number] [place] [address] 17 Oct, 2014 [facility] [place] [facility] [address] [id number] [place] [address] 16 Oct, 2014 [facility] [place] [facility] [address] [id number] [place] [address] 16 Oct, 2014 [facility] [place] [facility] [address] [id number] [place] [address] 15 Oct, 2014 [facility] [place] [facility] [address] [id number] [place] [address] Oct, [facility] [place] [facility] [address] [id number] [place] [address] Oct, [facility] [place] [facility] [address] [id number] [place] [address] Sep, [facility] [place] [facility] [address] [id number] [place] [address] Sep, [facility] [place] [facility] [address] [facility] [id number] [place] [address] Sep, [facility] [place] [facility] [address] [id number] [place] [address] Sep, [facility] [place] [facility] [address] [id number] [place] [address] Aug, [facility] [place] [facility] [address] [id number] [place] [address] Aug, [facility] [place] [facility] [address] [id number] [place] [address] Aug, [facility] [place] [facility] [address] [facility] [id number] [place] [address] Aug, [facility] [place] [facility] [address] [id number] [place] [address] Aug, [facility] [place] [facility] [address] [id number] [place] [address] Aug, [facility] [place] [facility] [address] [id number] [place] [address] 29 Jul, 2014 [facility] [place] [facility] [address] [id number] [place] [address] 29 Jul, 2014 [facility] [place] [facility] [address] [id number] [place] [address] 15 Jul, 2014 [facility] [place] [facility] [address] [id number] [place] [address] 15 Jul, 2014 [facility] [place] [facility] [address] [id number] [place] [address] 08 Jul, 2014 [facility] [place] [facility] [address] [id number] [place] [address] Jul, [facility] [place] [facility] [address] [id number] [place] [address] Jun, [facility] [place] [facility] [address] [id number] [place] [address] Jun, [facility] [place] [facility] [address] [id number] [place] [address] Jun, [facility] [place] [facility] [address] [id number] [place] [address] Jun, [facility] [place] [facility] [address] [id number] [place] [address] Jun, [facility] [place] [facility] [address] [id number] [place] [address] Jun, [facility] [place] [facility] [address] [id number] [place] [address] Jun, [facility] [place] [facility] [address] [id number] [place] [address] May, [facility] [place] [facility] [address] [id number] [place] [address] May, [facility] [place] [facility] [address] [id number] [place] [address] May, [facility] [place] [facility] [address] [id number] [place] [address] May, [facility] [place] [facility] [address] [id number] [place] [address] May, [facility] [place] [facility] [address] [id number] [place] [address] May, [facility] [place] [facility] [address] [id number] [place] [address] May, [facility] [place] [facility] [address] [id number] [place] [address] May, [facility] [place] [facility] [address] [id number] [place] [address] May, [facility] [place] [facility] [address] [id number] [place] [address] May, [facility] [place] [facility] [address] [id number] [place] [address] May, [facility] [place] [facility] [address] [id number] [place] [address] May, [facility] [place] [facility] [address] [id number] [place] [address] Apr, [facility] [place] [facility] [address] [id number] [place] [address] Apr, [facility] [place] [facility] [address] [id number] [place] [address] Apr, [facility] [place] [facility] [address] [id number] [place] [address] Apr, [facility] [place] [facility] [address] [id number] [place] [address] Apr, [facility] [address] [id number] [place] [address] Apr, [facility] [place] [facility] [address] [id number] [place] [address] Apr, [facility] [place] [facility] [address] [id number] [place] [address] Apr, [facility] [place] [facility] [address] [id number] [place] [address] Apr, [facility] [place] [facility] [address] [id number] [place] [address] Apr, [facility] [place] [facility] [address] [id number] [place] [address] March, [facility] [address] [id number] [place] [address] March, [facility] [address] [id number] [place] [address] March, [facility] [place] [facility] [address] [id number] [place] [address] March, [facility] [address] [id number] [place] [address] March, [facility] [place] [facility] [address] [id number] [place] [address] March, [facility] [place] [facility] [address] [id number] [place] [address] Feb, [facility] [place] [facility] [address] [id number] [place] [address] Feb, [facility] [place] [facility] [address] [id number] [place] [address] Feb, [facility] [place] [facility] [address] [id number] [place] [address] Feb, [facility] [place] [facility] [address] [id number] [place] [address] Feb, [facility] [place] [facility] [address] [id number] [place] [address] Feb, [facility] [place] [facility] [address] [id number] [place] [address] Feb, [facility] [place] [facility] [address] [id number] [place] [address] Feb, [facility] [place] [facility] [address] [id number] [place] [address] Feb, [facility] [place] [facility] [address] [id number] [place] [address] Feb, [facility] [place] [facility] [address] [id number] [place] [address] Jan, [facility] [place] [facility] [address] [id number] [place] [address] Jan, [facility] [place] [facility] [address] [id number] [place] [address] Jan, [facility] [place] [facility] [address] [id number] [place] [address] Jan, [facility] [place] [facility] [address] [id number] [place] [address] Jan, [facility] [place] [facility] [address] [id number] [place] [address] Jan, [facility] [place] [facility] [address] [id number] [place] [address] Jan, [facility] [place] [facility] [address] [id number] [place] [address] Jan, [facility] [place] [facility] [address] [id number] [place] [address] Dec, [facility] [place] [facility] [address] [id number] [place] [address] Dec, [facility] [place] [facility] [address] [id number] [place] [address] Dec, [facility] [place] [facility] [address] [id number] [place] [address] Dec, [facility] [place] [facility] [address] [id number] [place] [address] Dec, [facility] [place] [facility] [address] [id number] [place] [address] Dec, [facility] [place] [facility] [address] [id number] [place] [address] Dec, [facility] [place] [facility] [address] [id number] [place] [address] Dec, [facility] [place] [facility] [address] [id number] [place] [address] Nov, [facility] [place] [facility] [address] [id number] [place] [address] Nov, [facility] [place] [facility] [address] [id number] [place] [address] Nov, [facility] [place] [facility] [address] [id number] [place] [address] Nov, [facility] [place] [facility] [address] [id number] [place] [address] Nov, [facility] [place] [facility] [address] [id number] [place] [address] Nov, [facility] [place] [facility] [address] [id number] [place] [address] Nov, [facility] [place] [facility] [address] [id number] [place] [address] Nov, [facility] [place] [facility] [address] [id number] [place] [address] Nov, [facility] [place] [facility] [address] [id number] [place] [address] Nov, [facility] [place] [facility] [address] [id number] [place] [address] Nov, [facility] [place] [facility] [address] [id number] [place] [address] Oct, [facility] [place] [facility] [address] [id number] [place] [address] Oct, [facility] [place] [facility] [address] [id number] [place] [address] Oct, [facility] [place] [facility] [address] [id number] [place] [address] Oct, [facility] [place] [facility] [address] [id number] [place] [address] Sep, [facility] [place] [facility] [address] [id number] [place] [address] Sep, [facility] [place] [facility] [address] [id number] [place] [address] Sep, [facility] [place] [facility] [address] [id number], [place] [address] Sep, [facility] [place] [facility] [address] [id number], [place] [address] Aug, [facility] [place] [facility] [address] [id number], [place] [address] Aug, [facility] [place] [facility] [address] [id number], [place] [address] Aug, [facility] [place] [facility] [address] [id number], [place] [address] Aug, [facility] [place] [facility] [address] [id number], [place] [address] Aug, [facility] [place] [facility] [address] [id number], [place] [address] 24 Aug, 2013 [facility] [place] [facility] [address] [id number] [place] [address] Aug, [facility] [place] [facility] [address] [id number] [place] [address] Aug, [facility] [place] [facility] [address] [id number] [place] [address] 28 Jul, 2012 [facility] [place] [facility] [address] [id number] [place] [address] 27 Jul, 2012 [facility] [place] [facility] [address] [id number] [place] [address] 26 Jul, 2012 [facility] [place] [facility] [address] [id number] [place] [address] 24 Jul, 2012 [facility] [place] [facility] [address] [id number] [place] [address] 24 Jul, 2012 [facility] [place] [facility] [address] [id number] [place] [address] 23 Jul, 2012 [facility] [place] [facility] [address] [id number] [place] [address] 19 Jul, 2012 [facility] [place] [facility] [address] [id number] [place] [address] 18 Jul, 2012 [facility] [place] [facility] [address] [id number], [place] [address] 17 Jul, 2012 [facility] [place] [facility] [address] [id number], [place] [address] 16 Sep, 2012 [facility] [place] [facility] [address] [id number] [place] [address] 13 Sep, 2012 [facility] [place] [facility] [address] [id number] [place] [address] 13 Sep, 2012 [facility] [place] [facility] [address] [id number] [place] [address] 12 Sep, 2012 [facility] [place] [facility] [address] [id number] [place] [address] Jul, [facility] [address] [id number] [place] [address] Jul, [facility] [place] [facility] [address] [id number] [place] [address] Jun, [facility] [place] [facility] [address] [id number] [place] [address] Jun, [facility] [place] [facility] [address] [id number] [place] [address] Jun, [facility] [place] [facility] [address] [id number] [place] [address] May, [facility] [place] [facility] [address] [id number] [place] [address] May, [facility] [place] [facility] [address] [id number] [place] [address] May, [facility] [address] [id number] [place] [address] May, [facility] [place] [facility] [address] [id number] [place] [address] Apr, [facility] [place] [facility] [address] [id number] [place] [address] Apr, [facility] [place] [facility] [address] [id number] [place] [address] Apr, [facility] [place] [facility] [address] [id number] [place] [address] Apr, [facility] [place] [facility] [address] [id number] [place] [address] March, [facility] [place] [facility] [address] [id number] [place] [address] March, [facility] [place] [facility] [address] [id number] [place] [address] March, [facility] [address] [id number] [place] [address] Feb, [facility] [place] [facility] [address] [id number] [place] [address] Feb, [facility] [place] [facility] [address] [id number] [place] [address] Jan, [facility] [place] [facility] [address] [id number] [place] [address] Jan, [facility] [place] [facility] [address] [id number] [place] [address] Jan, [facility] [place] [facility] [address] [id number] [place] [address] Jan, [facility] [place] [facility] [id number] [place] [address] Jan, [facility] [place] [facility] [address] [id number] [place] [address] Dec, [facility] [place] [facility] [address] [id number] [place] [address] Dec, [facility] [place] [facility] [address] [id number] [place] [address] Dec, [facility] [place] [facility] [id number] [place] [address] Dec, [facility] [place] [facility] [address] [id number] [place] [address] Dec, [facility] [place] [facility] [address] [id number] [place] [address] Dec, [facility] [place] [facility] [address] [facility] [id number] [place] [address] Dec, [facility] [place] [facility] [address] [id number] [place] [address] Dec, [facility] [place] [facility] [address] [id number] [place] [address] Nov, [facility] [address] [id number] [place] [address] Nov, [facility] [address] [id number] [place] [address] Nov, [facility] [address] [id number] [place] [address] Nov, [facility] [address] [id number] [place] [address] Nov, [facility] [address] [id number] [place] [address] Nov, [facility] [address] [id number] [place] [address] Nov, [facility] [address] [id number] [place] [address] Oct, [facility] [address] [id number] [place] [address] Oct, [facility] [address] [id number] [place] [address] Oct, [facility] [address] [id number] [place] [address] Oct, [facility] [address] [id number] [place] [address] Oct, [facility] [address] [id number] [place] [address] Oct, [facility] [place] [facility] [address] [id number] [place] [address] Oct, [facility] [place] [facility] [address] [id number] [place] [address] Oct, [facility] [address] [id number] [place] [address] Sep, [facility] [place] [facility] [address] [id number] [place] [address] Sep, [facility] [place] [facility] [address] [id number] [place] [address] Sep, [facility] [place] [facility] [address] [id number] [place] [address] Sep, [facility] [place] [facility] [address] [id number] [place] [address] Sep, [facility] [place] [facility] [address] [id number] [place] [address] Sep, [facility] [place] [facility] [address] [id number] [place] [address] Sep, [facility] [place] [facility] [address] [id number] [place] [address] Sep, [facility] [place] [facility] [address] [id number], [place] [address] Sep, [facility] [place] [facility] [address] [id number] [place] [address] Sep, [facility] [place] [facility] [address] [id number], [place] [address] Sep, [facility] [place] [facility] [address] [id number], [place] [address] Sep, [facility] [place] [facility] [address] [id number], [place] [address] Sep, [facility] [place] [facility] [address] [id number] [place] [address] Sep, [facility] [place] [facility] [address] [id number], [place] [address] Sep, [facility] [place] [facility] [address] [id number] [place] [address] Sep, [facility] [place] [facility] [address] [id number] [place] [address] 05 Sep, 2012 [facility] [place] [facility] [address] [id number] [place] [address] 02 Sep, 2012 [facility] [place] [facility] [address] [id number] [place] [address] 02 Sep, 2012 [facility] [place] [facility] [address] [facility] [id number] [place] [address] Sep, [facility] [place] [facility] [address] [id number] [place] [address] 31 Aug, 2012 [facility] [place] [facility] [address] [id number] [place] [address], [place] [address] 31 Aug, 2012 [facility] [place] [facility] [address] [id number] [place] [address] 29 Aug, 2012 [facility] [place] [facility] [address] [facility] [id number] [place] [address] 27 Aug, 2012 [facility] [place] [facility] [address] [id number] [place] [address] 27 Aug, 2012 [facility] [place] [facility] [address] [facility] [id number] [place] [address] 18 Aug, 2012 [facility] [place] [facility] [address] [facility] [id number] [place] [address] 18 Aug, 2012 [facility] [place] [facility] [address] [facility] [id number] [place] [address] 17 Aug, 2012 [facility] [place] [facility] [address] [facility] [id number], [place] [address] 16 Aug, 2012 [facility] [place] [facility] [address] [id number] [place] [address] 16 Aug, 2012 [facility] [place] [facility] [address] [facility] [id number] [place] [address] 15 Aug, 2012 [facility] [place] [facility] [address] [facility] [id number], [place] [address] 09 Aug, 2012 [facility] [place] [facility] [address] [id number] [place] [address] Aug, [facility] [place] [facility] [address] [id number] [place] [address] Aug, [facility] [place] [facility] [address] [id number] [place] [address] Aug, [facility] [place] [facility] [address] [id number] [place] [address] 14 Jul, 2012 [facility] [place] [facility] [address] [id number] [place] [address] Jul, [facility] [place] [facility] [address] [id number] [place] [address] Jun, [facility] [place] [facility] [address] [id number] [place] [address] Jun, [facility] [place] [facility] [address] [id number] [place] [address] May, [facility] [place] [facility] [address] [id number] [place] [address] May, [facility] [place] [facility] [address] [id number] [place] [address] May, [facility] [place] [facility] [address] [id number] [place] [address] May, [facility] [place] [facility] [address] [id number] [place] [address] May, [facility] [place] [facility] [address] [id number] [place] [address] May, [facility] [place] [facility] [address] [id number] [place] [address] Apr, [facility] [place] [facility] [address] [id number] [place] [address] Apr, [facility] [place] [facility] [address] [id number] [place] [address] March, [facility] [address] [id number] [place] [address] March, [facility] [place] [facility] [address] [id number] [place] [address] March, [facility] [place] [facility] [address] [id number] [place] [address] March, [facility] [place] [facility] [address] [id number] [place] [address] March, [facility] [address] [id number] [place] [address] March, [facility] [place] [facility] [address] [id number] [place] [address] Feb, [facility] [place] [facility] [address] [id number] [place] [address] Feb, [facility] [place] [facility] [address] [id number] [place] [address] Feb, [facility] [place] [facility] [address] [id number] [place] [address] Feb, [facility] [place] [facility] [address] [id number] [place] [address] Feb, [facility] [place] [facility] [address] [id number] [place] [address] Feb, [facility] [place] [facility] [address] [id number] [place] [address] 10 Feb, 2012 [facility] [place] [facility] [address] [id number] [place] [address] Feb, [facility] [place] [facility] [address] [id number] [place] [address] 04 Feb, 2012 [facility] [place] [facility] [address] [id number] [place] [address] 30 Jan, 2012 [facility] [place] [facility] [address] [id number] [place] [address] 27 Jan, 2012 [facility] [address] [id number] [place] [address] 26 Jan, 2012 [facility] [address] [id number] [place] [address] 22 Jan, 2012 [facility] [address] [id number] [place] [address] 21 Jan, 2012 [facility] [address] [id number] [place] [address] 20 Jan, 2012 [facility] [address] [id number] [place] [address] 14 Jan, 2012 [facility] [address] [id number] [place] [address] 09 Jan, 2012 [facility] [address] [id number] [place] [address] 09 Jan, 2012 [facility] [address] [id number] [place] [address] 08 Jan, 2012 [facility] [address] [id number] [place] [address] 07 Jan, 2012 [facility] [address] [id number] [place] [address] 06 Jan, 2012 [facility] [place] [facility] [address] [id number] [place] [address] 02 Jan, 2012 [facility] [place] [facility] [address] [id number] [place] [address] Jan, [facility] [place] [facility] [address] [id number] [place] [address] 28 Dec, 2011 [facility] [place] [facility] [address] [id number] [place] [address] 27 Dec, 2011 [facility] [address] [id number] [place] [address] Dec, [facility] [address] [id number] [place] [address] Dec, [facility] [place] [facility] [address] [id number] [place] [address] 16 Dec, 2011 [facility] [place] [facility] [address] [id number] [place] [address] Dec, [facility] [place] [facility] [address] [id number] [place] [address] Dec, [facility] [place] [facility] [address] [id number] [place] [address] Dec, [facility] [place] [facility] [address] [facility] [id number] [place] [address] Dec, [facility] [place] [facility] [address] [facility] [id number] [place] [address] Nov, [facility] [place] [facility] [address] [id number] [place] [address] Nov, [facility] [place] [facility] [address] [facility] [id number] [place] [address] Nov, [facility] [place] [facility] [address] [facility] [id number] [place] [address] Nov, [facility] [place] [facility] [address] [facility] [id number] [place] [address] Oct, [facility] [place] [facility] [address] [id number] [place] [address] Oct, [facility] [place] [facility] [address] [id number] [place] [address] Oct, [facility] [place] [facility] [address] [facility] [id number] [place] [address] Oct, [facility] [place] [facility] [address] [facility] [id number] [place] [address] Oct, [facility] [place] [facility] [address] [id number] [place] [address] Oct, [facility] [address] [id number] [place] [address] Oct, [facility] [place] [facility] [address] [id number] [place] [address] Sep, [facility] [address] [id number] [place] [address] Sep, [facility] [place] [facility] [address] [id number] [place] [address] Sep, [facility] [place] [facility] [address] [id number] [place] [address], [place] [address] Sep, [facility] [place] [facility] [address] [id number] [place] [address] Sep, [facility] [place] [facility] [address] [id number] [place] [address] Sep, [facility] [place] [facility] [address] [id number] [place] [address] Sep, [facility] [place] [facility] [address] [id number] [place] [address] Sep, [facility] [place] [facility] [address] [facility] [id number] [place] [address] Sep, [facility] [place] [facility] [address] [id number] [place] [address] Aug, [facility] [place] [facility] [address] [id number] [place] [address] Aug, [facility] [place] [facility] [address] [id number] [place] [address] Aug, [facility] [place] [facility] [address] [id number] [place] [address] May, [facility] [place] [facility] [address] [id number] [place] [address] Nov, [facility] [address] [id number] [place] [address] Oct, [facility] [place] [facility] [address] [id number] [place] [address] Oct, [facility] [place] [facility] [address] [id number] [place] [address] Oct, [facility] [place] [facility] [address] [id number] [place] [address] Oct, [facility] [address] [id number] [place] [address] Oct, [facility] [place] [facility] [address] [id number] [place] [address] Sep, [facility] [place] [facility] [address] [facility] [id number] [place] [address] Sep, [facility] [address] [id number], [place] [address] 14 Jul, 2010 [facility] [place] [facility] [address] [id number] [place] [address] Oct, [facility] [place] [facility] [address] [id number], [place] [address] Oct, [facility] [place] [facility] [address] [facility] [id number], [place] [address] Oct, [facility] [place] [facility] [address] [id number], [place] [address] Oct, [facility] [place] [facility] [address] [id number], [place] [address] Sep, [facility] [place] [facility] [address] [id number], [place] [address] Sep, [facility] [place] [facility] [address] [facility] [id number], [place] [address] Sep, [facility] [place] [facility] [address] [id number], [place] [address] Sep, [facility] [address] [facility] [id number] [place] [address] Sep, [facility] [address] [facility] [id number], [place] [address] Jul, [facility] [address] [facility] [id number], [place] [address] Apr, [facility] [address] [facility] [id number], [place] [address] Dec, IMMUNIZATIONS No Known Immunizations SOCIAL HISTORY Never Assessed REASON FOR VISIT EMR-[facility] [place] PLAN OF CARE VITAL SIGNS MEDICATIONS Unknown [...]
--- OUTSIDE RECORDS SUMMARY | 2019-06-14 11:19 | XMS REPORT ---
Author Author Migration, Doctor Organization [facility] Address Unknown Phone Unavailable Care Team Providers Care Molding Technician Name Role Phone Migration, Doctor Unavailable Unavailable PROBLEMS Type Condition ICD9-CM Code NBP23-DG Code Onset Dates Condition Status SNOMED Code Problem Mixed hyperlipidemia E78.2 Active 887552756 Problem Essential hypertension I10 Active 85326698 Problem Acquired hypothyroidism E03.9 Active 996259097 Problem Prediabetes R73.03 Active 619569960 Problem Reactive depression F32.9 Active 68382087 Problem Lumbago with sciatica, left side M54.42 Active 372938850 Problem Gastroesophageal reflux disease, esophagitis presence not specified K21.9 Active 465080446 Problem Chronic obstructive pulmonary disease, unspecified COPD type J44.9 Active 00918915 Problem Cigarette nicotine dependence without complication F17.210 Active 11000270 Problem DM neuro manif type II E11.49 Active 83394620 Problem Chronic pain G89.29 Active 03957597 Problem Other chronic pain G89.29 Active 64317068 Problem Moderate episode of recurrent major depressive disorder F33.1 Active 186654958 Problem Lumbago with sciatica, right side M54.41 Active [id number] Problem Seizures R56.9 Active 38542623 Problem Iron deficiency anemia due to chronic blood loss D50.0 Active 848153307 Problem Seasonal allergies J30.2 Active 209931652 Problem Sinusitis J32.9 Active 63588694 ALLERGIES No Information ENCOUNTERS Encounter Location Date Diagnosis [facility] [id number] [address] Apr, [facility] [address] [address] March, [facility] [address] [address] March, Other chronic pain G89.29 [facility] [id number] [address] March, Type 2 diabetes mellitus with hyperglycemia E11.65 ; Flank pain R10.9 ; Acute cystitis without hematuria N30.00 ; Chronic obstructive pulmonary disease, unspecified COPD type J44.9 and Moderate episode of recurrent major depressive disorder F33.1 [facility] [id number] [place] [address] March, [facility] [id number] [place] [address] March, Wheezing R06.2 and Viral upper respiratory tract infection J06.9 [facility] [id number] [place] [address] Feb, [facility] [id number] [place] [address] Feb, [facility] [id number] [place] [address] Jan, [facility] [id number] [place] [address] Jan, Acute cystitis with hematuria N30.01 and Dysuria R30.0 [facility] [id number] [place] [address] Jan, [facility] [id number] [place] [address] Dec, [facility] [id number] [place] [address] Dec, [facility] [id number] [place] [address] Dec, [facility] [id number] [place] [address] Dec, [facility] [id number] [place] [address] Dec, Routine adult health maintenance Z00.00 ; Chronic obstructive pulmonary disease, unspecified COPD type J44.9 and Encounter for immunization Z23 [facility] [address] [address] Nov, [facility] [id number] [place] [address] Nov, UTI (urinary tract infection) N39.0 and Other chronic pain G89.29 [facility] [address] [address] Nov, [facility] [id number] [place] [address] Nov, [facility] [id number] [place] [address] Nov, Painful urination R30.9 and UTI (urinary tract infection) N39.0 [facility] [id number] [place] [address] Nov, [facility] [address] [address] Nov, UTI (urinary tract infection) N39.0 [facility] [id number] [place] [address] Nov, Dysuria R30.0 ; UTI (urinary tract infection) N39.0 and Chronic pain G89.29 [facility] [address] [address] Nov, [facility] [address] [address] Oct, Cough R05 [facility] [address] [place] [address] 14 Oct, 2018 Sinusitis J32.9 [facility] [address] [address] Oct, [facility] [address] [place] [address] Oct, UTI (urinary tract infection) N39.0 and URI (upper respiratory infection) J06.9 [address] [facility] [id number] [place] [address] Sep, Pain in thoracic spine M54.6 [facility] [id number] [place] [address] Sep, Type 2 diabetes mellitus with hyperglycemia E11.65 [address] [facility] [address] [address] Sep, Chronic obstructive pulmonary disease, unspecified COPD type J44.9 ; Abrasion of right ear canal, initial encounter S00.411A ; Cigarette nicotine dependence without complication F17.210 ; Right leg pain M79.604 and Seasonal allergies J30.2 [facility] [facility] [id number] [place] [address] Aug, [facility] [id number] [place] [address] Aug, [facility] [facility] [id number] [place] [address] Aug, Pain in thoracic spine M54.6 [facility] [facility] [id number] [place] [address] Aug, [address] [facility] [id number] [place] [address] Aug, Chronic obstructive pulmonary disease, unspecified COPD type J44.9 ; Complete amputation of right foot, 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 ; Cigarette nicotine dependence without complication F17.210 and BMI 40.0-44.9, adult Z68.41 [address] [facility] [id number] [place] [address] Jul, [facility] [id number] [place] [address] Jul, [address] [address] Jul, Onychomycosis B35.1 ; Onychocryptosis L60.0 and DM neuro manif type II E11.49 [address] [facility] [address] [address] Jun, Pain in thoracic spine M54.6 [address] [place] [address] [address] Jun, Iron deficiency anemia due to chronic blood loss D50.0 and Hematochezia K92.1 [address] [address] Jun, Gastroenteritis K52.9 and Abnormal RBC indices R71.8 [address] [address] Jun, [address] [place] [address] [address] Jun, Chest congestion R09.89 and Seizures R56.9 [address] [place] [address] [address] May, Pain in thoracic spine M54.6 [address] [address] [address] May, [address] [place] [address] [address] May, [address] [place] [address] [address] May, [address] [place] [address] [address] May, Acute non-recurrent frontal sinusitis J01.10 and Dermatitis L30.9 [address] [address] [address] May, [address] [place] [address] [address] May, Pain in thoracic spine M54.6 [facility] [id number] [place] [address] May, [facility] [id number] [place] [address] May, Acute nasopharyngitis J00 [facility] [id number] [place] [address] May, [facility] [id number] [place] [address] May, [facility] [id number] [place] [address] Apr, [facility] [id number] [place] [address] Apr, [facility] [id number] [place] [address] Apr, [facility] [id number] [place] [address] Apr, [facility] [id number] [place] [address] Apr, Pain in right ankle and joints of right foot M25.571 [facility] [id number] [place] [address] Apr, [facility] [id number] [place] [address] Apr, Bronchitis J40 ; Pain in right ankle and joints of right foot M25.571 ; Other chronic pain G89.29 ; Prediabetes R73.03 ; Chronic obstructive pulmonary disease, unspecified COPD type J44.9 and Cigarette nicotine dependence without complication F17.210 [facility] [address], [place] [address] 13 Apr, 2018 Seasonal allergic rhinitis, unspecified trigger J30.2 [facility] [id number] [place] [address] 08 Apr, 2018 Onychomycosis B35.1 ; Onychocryptosis L60.0 and DM neuro manif type II E11.49 [address] [id number] [place] [address] Apr, Reactive depression F32.9 ; Thoracic myofascial strain, initial encounter S29.019A and Leg cramps R25.2 [address] [id number] [place] [address] March, [address] [address] March, Type 2 diabetes mellitus with hyperglycemia E11.65 [address] [place] [address] March, Reactive depression F32.9 [address] [place] [address] [address] March, Pain in thoracic spine M54.6 and Other chronic pain G89.29 [address] [place] [id number] [place] [address] Feb, [address] [id number] [place] [address] Jan, Reactive depression F32.9 ; Essential hypertension I10 ; Gastroesophageal reflux disease, esophagitis presence not specified K21.9 ; Lumbago with sciatica, left side M54.42 and Lumbago with sciatica, right side M54.41 [address] [id number] [place] [address] Jan, Reactive depression F32.9 and Pharyngoesophageal dysphagia R13.14 [address] [place] [id number] [place] [address] Jan, [address] [address] Jan, Encounter for immunization Z23 [facility] [id number] [place] [address] Jan, Onychomycosis B35.1 and DM neuro manif type II E11.49 [facility] [address] [address] Jan, [address] [address] Jan, Prediabetes R73.03 [facility] [address] [address] Dec, [address] [address] Dec, Essential hypertension I10 ; Mixed hyperlipidemia E78.2 ; Acquired hypothyroidism E03.9 ; Reactive depression F32.9 and Prediabetes R73.03 [address] [address] Dec, [address] [place] [address] Dec, [address] [place] [address] Dec, DM neuro manif type II E11.[address] [facility] [address] [address] Dec, Bruise T14.8XXA ; Type 2 diabetes mellitus with hyperglycemia E11.65 and assisted current use of insulin Z79.4 [address] [id number] [place] [address] Oct, [address] [address] March, Onychomycosis B35.1 and DM neuro manif type II E11.49 [address] [address] Jun, [facility] [address] [id number] [place] [address] Jun, [facility] [address] [id number] [place] [address] Jun, COPD with acute exacerbation 491.21 [facility] [address] [id number] [place] [address] Apr, [facility] [address] [id number] [place] [address] Feb, [facility] [address] [id number] [place] [address] Feb, [facility] [address] [id number] [place] [address] Jan, [facility] [address] [id number] [place] [address] Jan, [facility] [address] [id number] [place] [address] Jan, [facility] [address] [id number] [place] [address] Jan, [facility] [address] [id number] [place] [address] Jan, [facility] [address] [id number] [place] [address] Jan, [facility] [address] [id number] [place] [address] Jan, [facility] [address] [id number] [place] [address] Jan, [facility] [address] [id number] [place] [address] Jan, [facility] [address] [id number] [place] [address] Jan, [facility] [place] [facility] [address] [id number] [place] [address] 19 Jan, 2014 [facility] [place] [facility] [address] [id number] [place] [address] 18 Jan, 2014 [facility] [place] [facility] [address] [id number] [place] [address] 18 Jan, 2014 [facility] [place] [facility] [address] [id number] [place] [address] 16 Jan, 2014 [facility] [place] [facility] [address] [id number] [place] [address] 16 Jan, 2014 [facility] [place] [facility] [address] [id number] [place] [address] 16 Jan, 2014 [facility] [place] [facility] [address] [id number] [place] [address] 16 Jan, 2014 [facility] [place] [facility] [address] [id number] [place] [address] 15 Jan, 2015 [facility] [place] [facility] [address] [id number] [place] [address] 13 Jan, 2015 [facility] [place] [facility] [address] [id number] [place] [address] 13 Jan, 2015 [facility] [place] [facility] [address] [id number] [place] [address] 13 Jan, 2015 [facility] [place] [facility] [address] [id number] [place] [address] 13 Jan, 2014 [facility] [place] [facility] [address] [id number] [place] [address] 12 Jan, 2015 [facility] [place] [facility] [address] [id number] [place] [address] 04 Jan, 2015 [facility] [place] [facility] [address] [id number] [place] [address] 04 Jan, 2015 [facility] [place] [facility] [address] [id number] [place] [address] Dec, 2014 [facility] [place] [facility] [address] [id number] [place] [address] Dec, 2014 [facility] [place] [facility] [address] [id number] [place] [address] Dec, 2014 [facility] [place] [facility] [address] [id number] [place] [address] Dec, 2014 [facility] [place] [facility] [address] [id number] [place] [address] Dec, 2014 [facility] [place] [facility] [address] [id number] [place] [address] Dec, 2014 [facility] [place] [facility] [address] [facility] [id number] [place] [address] Dec, 2014 [facility] [place] [facility] [address] [facility] [id number] [place] [address] Dec, 2014 [facility] [place] [facility] [address] [facility] [id number] [place] [address] Dec, [facility] [place] [facility] [address] [facility] [id number] [place] [address] Dec, [facility] [place] [facility] [address] [facility] [id number] [place] [address] Dec, [facility] [place] [facility] [address] [facility] [id number] [place] [address] Dec, [facility] [place] [facility] [address] [id number] [address] Nov, [facility] [place] [facility] [address] [id number] [place] [address] Nov, [facility] [place] [facility] [address] [facility] [id number] [place] [address] Nov, [facility] [place] [facility] [address] [facility] [id number] [address] Nov, [facility] [place] [facility] [address] [id number] [place] [address] Nov, [facility] [place] [facility] [address] [id number] [place] [address] Nov, [facility] [place] [facility] [address] [id number] [place] [address] Nov, [facility] [place] [facility] [address] [id number] [place] [address] Nov, [facility] [place] [facility] [address] [id number] [place] [address] Nov, [facility] [place] [facility] [address] [id number] [place] [address] Nov, [facility] [place] [facility] [address] [id number] [place] [address] Nov, [facility] [place] [facility] [address] [id number] [place] [address] Nov, [facility] [place] [facility] [address] [id number] [place] [address] Oct, [facility] [place] [facility] [address] [id number] [place] [address] Oct, [facility] [place] [facility] [address] [id number] [place] [address] Oct, [facility] [place] [facility] [address] [id number] [place] [address] Oct, [facility] [place] [facility] [address] [id number] [place] [address] Oct, [facility] [place] [facility] [address] [id number] [place] [address] Oct, [facility] [place] [facility] [address] [id number] [place] [address] Oct, [facility] [place] [facility] [address] [id number] [place] [address] 23 Oct, 2014 [facility] [place] [facility] [address] [id number] [place] [address] 17 Oct, 2014 [facility] [place] [facility] [address] [id number] [place] [address] 17 Oct, 2014 [facility] [place] [facility] [address] [id number] [place] [address] 16 Oct, 2014 [facility] [place] [facility] [address] [id number] [place] [address] 16 Oct, 2014 [facility] [place] [facility] [address] [id number] [place] [address] 15 Oct, 2014 [facility] [place] [facility] [address] [id number] [place] [address] Oct, [facility] [place] [facility] [address] [id number] [place] [address] Oct, [facility] [place] [facility] [address] [id number] [place] [address] Sep, [facility] [place] [facility] [address] [id number] [place] [address] Sep, [facility] [place] [facility] [address] [facility] [id number] [place] [address] Sep, [facility] [place] [facility] [address] [id number] [place] [address] Sep, [facility] [place] [facility] [address] [id number] [place] [address] Aug, [facility] [place] [facility] [address] [id number] [place] [address] Aug, [facility] [place] [facility] [address] [id number] [place] [address] Aug, [facility] [place] [facility] [address] [facility] [id number] [place] [address] Aug, [facility] [place] [facility] [address] [id number] [place] [address] Aug, [facility] [place] [facility] [address] [id number] [place] [address] Aug, [facility] [place] [facility] [address] [id number] [place] [address] 29 Jul, 2014 [facility] [place] [facility] [address] [id number] [place] [address] 29 Jul, 2014 [facility] [place] [facility] [address] [id number] [place] [address] 15 Jul, 2014 [facility] [place] [facility] [address] [id number] [place] [address] 15 Jul, 2014 [facility] [place] [facility] [address] [id number] [place] [address] 08 Jul, 2014 [facility] [place] [facility] [address] [id number] [place] [address] Jul, [facility] [place] [facility] [address] [id number] [place] [address] Jun, [facility] [place] [facility] [address] [id number] [place] [address] Jun, [facility] [place] [facility] [address] [id number] [place] [address] Jun, [facility] [place] [facility] [address] [id number] [place] [address] Jun, [facility] [place] [facility] [address] [id number] [place] [address] Jun, [facility] [place] [facility] [address] [id number] [place] [address] Jun, [facility] [place] [facility] [address] [id number] [place] [address] Jun, [facility] [place] [facility] [address] [id number] [place] [address] May, [facility] [place] [facility] [address] [id number] [place] [address] May, [facility] [place] [facility] [address] [id number] [place] [address] May, [facility] [place] [facility] [address] [id number] [place] [address] May, [facility] [place] [facility] [address] [id number] [place] [address] May, [facility] [place] [facility] [address] [id number] [place] [address] May, [facility] [place] [facility] [address] [id number] [place] [address] May, [facility] [place] [facility] [address] [id number] [place] [address] May, [facility] [place] [facility] [address] [id number] [place] [address] May, [facility] [place] [facility] [address] [id number] [place] [address] May, [facility] [place] [facility] [address] [id number] [place] [address] May, [facility] [place] [facility] [address] [id number] [place] [address] May, [facility] [place] [facility] [address] [id number] [place] [address] Apr, [facility] [place] [facility] [address] [id number] [place] [address] Apr, [facility] [place] [facility] [address] [id number] [place] [address] Apr, [facility] [place] [facility] [address] [id number] [place] [address] Apr, [facility] [place] [facility] [address] [id number] [place] [address] Apr, [facility] [address] [id number] [place] [address] Apr, [facility] [place] [facility] [address] [id number] [place] [address] Apr, [facility] [place] [facility] [address] [id number] [place] [address] Apr, [facility] [place] [facility] [address] [id number] [place] [address] Apr, [facility] [place] [facility] [address] [id number] [place] [address] Apr, [facility] [place] [facility] [address] [id number] [place] [address] March, [facility] [address] [id number] [place] [address] March, [facility] [address] [id number] [place] [address] March, [facility] [place] [facility] [address] [id number] [place] [address] March, [facility] [address] [id number] [place] [address] March, [facility] [place] [facility] [address] [id number] [place] [address] March, [facility] [place] [facility] [address] [id number] [place] [address] Feb, [facility] [place] [facility] [address] [id number] [place] [address] Feb, [facility] [place] [facility] [address] [id number] [place] [address] Feb, [facility] [place] [facility] [address] [id number] [place] [address] Feb, [facility] [place] [facility] [address] [id number] [place] [address] Feb, [facility] [place] [facility] [address] [id number] [place] [address] Feb, [facility] [place] [facility] [address] [id number] [place] [address] Feb, [facility] [place] [facility] [address] [id number] [place] [place] [address] Feb, [facility] [place] [facility] [address] [id number] [place] [address] Feb, [facility] [place] [facility] [address] [id number] [place] [address] Feb, [facility] [place] [facility] [address] [id number] [place] [address] Jan, [facility] [place] [facility] [address] [id number] [place] [address] Jan, [facility] [place] [facility] [address] [id number] [place] [address] Jan, [facility] [place] [facility] [address] [id number] [place] [address] Jan, [facility] [place] [facility] [address] [id number] [place] [address] Jan, [facility] [place] [facility] [address] [id number] [place] [address] Jan, [facility] [place] [facility] [address] [id number] [place] [address] Jan, [facility] [place] [facility] [address] [id number] [place] [address] Jan, [facility] [place] [facility] [address] [id number] [place] [address] Dec, [facility] [place] [facility] [address] [id number] [place] [address] Dec, [facility] [place] [facility] [address] [id number] [place] [address] Dec, [facility] [place] [facility] [address] [id number] [place] [address] Dec, [facility] [place] [facility] [address] [id number] [place] [address] Dec, [facility] [place] [facility] [address] [id number] [place] [address] Dec, [facility] [place] [facility] [address] [id number] [place] [address] Dec, [facility] [place] [facility] [address] [id number] [place] [address] Dec, [facility] [place] [facility] [address] [id number] [place] [address] Nov, [facility] [place] [facility] [address] [id number] [place] [address] Nov, [facility] [place] [facility] [address] [id number] [place] [address] Nov, [facility] [place] [facility] [address] [id number] [place] [address] Nov, [facility] [place] [facility] [address] [id number] [place] [address] Nov, [facility] [place] [facility] [address] [id number] [place] [address] Nov, [facility] [place] [facility] [address] [id number] [place] [address] Nov, [facility] [place] [facility] [address] [id number] [place] [address] Nov, [facility] [place] [facility] [address] [id number] [place] [address] Nov, [facility] [place] [facility] [address] [id number] [place] [address] Nov, [facility] [place] [facility] [address] [id number] [place] [address] Nov, [facility] [place] [facility] [address] [id number] [place] [address] Oct, [facility] [place] [facility] [address] [id number] [place] [address] Oct, [facility] [place] [facility] [address] [id number] [place] [address] Oct, [facility] [place] [facility] [address] [id number] [place] [address] Oct, [facility] [place] [facility] [address] [id number] [place] [address] Sep, [facility] [place] [facility] [address] [id number] [place] [address] Sep, [facility] [place] [facility] [address] [id number] [place] [address] Sep, [facility] [place] [facility] [address] [id number] [address] Sep, [facility] [place] [facility] [address] [id number], [place] [address] Aug, [facility] [place] [facility] [address] [id number], [place] [address] Aug, [facility] [place] [facility] [address] [id number][place] [address] Aug, [facility] [place] [facility] [address] [id number], [place] [address] Aug, [facility] [place] [facility] [address] [id number], [place] [address] Aug, [facility] [place] [facility] [address] [id number], [place] [address] 24 Aug, 2013 [facility] [place] [facility] [address] [id number] [place] [address] Aug, [facility] [place] [facility] [address] [id number] [place] [address] Aug, [facility] [place] [facility] [address] [id number] [place] [address] 28 Jul, 2012 [facility] [place] [facility] [address] [id number] [place] [address] 27 Jul, 2012 [facility] [place] [facility] [address] [id number] [place] [address] 26 Jul, 2012 [facility] [place] [facility] [address] [id number] [place] [address] 24 Jul, 2012 [facility] [place] [facility] [address] [id number] [place] [address] 24 Jul, 2012 [facility] [place] [facility] [address] [id number] [place] [address] 23 Jul, 2012 [facility] [place] [facility] [address] [id number] [place] [address] 19 Jul, 2012 [facility] [place] [facility] [address] [id number] [place] [address] 18 Jul, 2012 [facility] [place] [facility] [address] [id number] [address] 17 Jul, 2012 [facility] [place] [facility] [address] [id number], [place] [address] 16 Sep, 2012 [facility] [place] [facility] [address] [id number] [place] [address] 13 Sep, 2012 [facility] [place] [facility] [address] [id number] [place] [address] 13 Sep, 2012 [facility] [place] [facility] [address] [id number] [place] [address] 12 Sep, 2012 [facility] [place] [facility] [address] [id number] [place] [address] Jul, [facility] [address] [id number] [place] [address] Jul, [facility] [place] [facility] [address] [id number] [place] [address] Jun, [facility] [place] [facility] [address] [id number] [place] [address] Jun, [facility] [place] [facility] [address] [id number] [place] [address] Jun, [facility] [place] [facility] [address] [id number] [place] [address] May, [facility] [place] [facility] [address] [id number] [place] [address] May, [facility] [place] [facility] [address] [id number] [place] [address] May, [facility] [address] [id number] [place] [address] May, [facility] [place] [facility] [address] [id number] [place] [address] Apr, [facility] [place] [facility] [address] [id number] [place] [address] Apr, [facility] [place] [facility] [address] [id number] [place] [address] Apr, [facility] [place] [facility] [address] [id number] [place] [address] Apr, [facility] [place] [facility] [address] [id number] [place] [address] March, [facility] [place] [facility] [address] [id number] [place] [address] March, [facility] [place] [facility] [address] [id number] [place] [address] March, [facility] [address] [id number] [place] [address] Feb, [facility] [place] [facility] [address] [id number] [place] [address] Feb, [facility] [place] [facility] [address] [id number] [place] [address] Jan, [facility] [place] [facility] [address] [id number] [place] [address] Jan, [facility] [place] [facility] [address] [id number] [place] [address] Jan, [facility] [place] [facility] [address] [id number] [place] [address] Jan, [facility] [place] [facility] [id number] [address] Jan, [facility] [place] [facility] [address] [id number] [address] Dec, [facility] [place] [facility] [address] [id number] [place] [address] Dec, [facility] [place] [facility] [address] [id number] [address] Dec, [facility] [place] [facility] [id number] [address] Dec, [facility] [place] [facility] [address] [id number] [place] [address] Dec, [facility] [place] [facility] [address] [id number] [place] [address] Dec, [facility] [place] [facility] [address] [facility] [id number] [place] [address] Dec, [facility] [place] [facility] [address] [id number] [address] Dec, [facility] [place] [facility] [address] [id number] [place] [address] Nov, [facility] [address] [id number] [place] [address] Nov, [facility] [address] [id number] [place] [address] Nov, [facility] [address] [id number] [place] [address] Nov, [facility] [address] [id number] [place] [address] Nov, [facility] [address] [id number] [place] [address] Nov, [facility] [address] [id number] [place] [address] Nov, [facility] [address] [id number] [place] [address] Oct, [facility] [address] [id number] [place] [address] Oct, [facility] [address] [id number] [place] [address] Oct, [facility] [address] [id number] [place] [address] Oct, [facility] [address] [id number] [place] [address] Oct, [facility] [address] [id number] [place] [address] Oct, [facility] [place] [facility] [address] [id number] [place] [address] Oct, [facility] [place] [facility] [address] [id number] [place] [address] Oct, [facility] [address] [id number] [place] [address] Sep, [facility] [place] [facility] [address] [id number] [place] [address] Sep, [facility] [place] [facility] [address] [id number] [place] [address] Sep, [facility] [place] [facility] [address] [id number] [place] [address] Sep, [facility] [place] [facility] [address] [id number] [place] [address] Sep, [facility] [place] [facility] [address] [id number] [place] [address] Sep, [facility] [place] [facility] [address] [id number] [place] [address] Sep, [facility] [place] [facility] [address] [id number] [place] [address] Sep, [facility] [place] [facility] [address] [id number], [place] [address] Sep, [facility] [place] [facility] [address] [id number] [place] [address] Sep, [facility] [place] [facility] [address] [id number], [place] [address] Sep, [facility] [place] [facility] [address] [id number], [place] [address] Sep, [facility] [place] [facility] [address] [id number], [place] [address] Sep, [facility] [place] [facility] [address] [id number] [place] [address] Sep, [facility] [place] [facility] [address] [id number], [place] [address] Sep, [facility] [place] [facility] [address] [id number] [place] [address] Sep, [facility] [place] [facility] [address] [id number] [place] [address] 05 Sep, 2012 [facility] [place] [facility] [address] [id number] [place] [address] 02 Sep, 2012 [facility] [place] [facility] [address] [id number] [place] [address] 02 Sep, 2012 [facility] [place] [facility] [address] [facility] [id number] [place] [address] Sep, [facility] [place] [facility] [address] [id number] [place] [address] 31 Aug, 2012 [facility] [place] [facility] [address] [id number] [place] [address], [place] [address] 31 Aug, 2012 [facility] [place] [facility] [address] [id number] [place] [address] 29 Aug, 2012 [facility] [place] [facility] [address] [facility] [id number] [place] [address] 27 Aug, 2012 [facility] [place] [facility] [address] [id number] [place] [address] 27 Aug, 2012 [facility] [place] [facility] [address] [facility] [id number] [place] [address] 18 Aug, 2012 [facility] [place] [facility] [address] [facility] [id number] [place] [address] 18 Aug, 2012 [facility] [place] [facility] [address] [facility] [id number] [place] [address] 17 Aug, 2012 [facility] [place] [facility] [address] [facility] [id number] [address] 16 Aug, 2012 [facility] [place] [facility] [address] [id number] [place] [address] 16 Aug, 2012 [facility] [place] [facility] [address] [facility] [id number] [place] [address] 15 Aug, 2012 [facility] [place] [facility] [address] [facility] [id number], [place] [address] 09 Aug, 2012 [facility] [place] [facility] [address] [id number] [place] [address] Aug, [facility] [place] [facility] [address] [id number] [place] [address] Aug, [facility] [place] [facility] [address] [id number] [place] [address] Aug, [facility] [place] [facility] [address] [id number] [place] [address] 14 Jul, 2012 [facility] [place] [facility] [address] [id number] [place] [address] Jul, [facility] [place] [facility] [address] [id number] [place] [address] Jun, [facility] [place] [facility] [address] [id number] [place] [address] Jun, [facility] [place] [facility] [address] [id number] [place] [address] May, [facility] [place] [facility] [address] [id number] [place] [address] May, [facility] [place] [facility] [address] [id number] [place] [address] May, [facility] [place] [facility] [address] [id number] [place] [address] May, [facility] [place] [facility] [address] [id number] [place] [address] May, [facility] [place] [facility] [address] [id number] [place] [address] May, [facility] [place] [facility] [address] [id number] [place] [address] Apr, [facility] [place] [facility] [address] [id number] [place] [address] Apr, [facility] [place] [facility] [address] [id number] [place] [address] March, [facility] [address] [id number] [place] [address] March, [facility] [place] [facility] [address] [id number] [place] [address] March, [facility] [place] [facility] [address] [id number] [place] [address] March, [facility] [place] [facility] [address] [id number] [place] [address] March, [facility] [address] [id number] [place] [address] March, [facility] [place] [facility] [address] [id number] [place] [address] Feb, [facility] [place] [facility] [address] [id number] [place] [address] Feb, [facility] [place] [facility] [address] [id number] [place] [address] Feb, [facility] [place] [facility] [address] [id number] [place] [address] Feb, [facility] [place] [facility] [address] [id number] [place] [address] Feb, [facility] [place] [facility] [address] [id number] [place] [address] Feb, [facility] [place] [facility] [address] [id number] [place] [address] 10 Feb, 2012 [facility] [place] [facility] [address] [id number] [place] [address] Feb, [facility] [place] [facility] [address] [id number] [place] [address] 04 Feb, 2012 [facility] [place] [facility] [address] [id number] [place] [address] 30 Jan, 2012 [facility] [place] [facility] [address] [id number] [place] [address] 27 Jan, 2012 [facility] [address] [id number] [place] [address] 26 Jan, 2012 [facility] [address] [id number] [place] [address] 22 Jan, 2012 [facility] [address] [id number] [place] [address] 21 Jan, 2012 [facility] [address] [id number] [place] [address] 20 Jan, 2012 [facility] [address] [id number] [place] [address] 14 Jan, 2012 [facility] [address] [id number] [place] [address] 09 Jan, 2012 [facility] [address] [id number] [place] [address] 09 Jan, 2012 [facility] [address] [id number] [place] [address] 08 Jan, 2012 [facility] [address] [id number] [place] [address] 07 Jan, 2012 [facility] [address] [id number] [place] [address] 06 Jan, 2012 [facility] [place] [facility] [address] [id number] [place] [address] 02 Jan, 2012 [facility] [place] [facility] [address] [id number] [place] [address] Jan, [facility] [place] [facility] [address] [id number] [place] [address] 28 Dec, 2011 [facility] [place] [facility] [address] [id number] [place] [address] 27 Dec, 2011 [facility] [address] [id number] [place] [address] Dec, [facility] [address] [id number] [place] [address] Dec, [facility] [place] [facility] [address] [id number] [place] [address] 16 Dec, 2011 [facility] [place] [facility] [address] [id number] [place] [address] Dec, [facility] [place] [facility] [address] [id number] [place] [address] Dec, [facility] [place] [facility] [address] [id number] [place] [address] Dec, [facility] [place] [facility] [address] [facility] [id number] [place] [address] Dec, [facility] [place] [facility] [address] [facility] [id number] [place] [address] Nov, [facility] [place] [facility] [address] [id number] [place] [address] Nov, [facility] [place] [facility] [address] [facility] [id number] [place] [address] Nov, [facility] [place] [facility] [address] [facility] [id number] [place] [address] Nov, [facility] [place] [facility] [address] [facility] [id number] [place] [address] Oct, [facility] [place] [facility] [address] [id number] [place] [address] Oct, [facility] [place] [facility] [address] [id number] [place] [address] Oct, [facility] [place] [facility] [address] [facility] [id number] [place] [address] Oct, [facility] [place] [facility] [address] [facility] [id number] [place] [address] Oct, [facility] [place] [facility] [address] [id number] [place] [address] Oct, [facility] [address] [id number] [place] [address] Oct, [facility] [place] [facility] [address] [id number] [place] [address] Sep, [facility] [address] [id number] [place] [address] Sep, [facility] [place] [facility] [address] [id number] [place] [address] Sep, [facility] [place] [facility] [address] [id number] [place] [address], [place] [address] Sep, [facility] [place] [facility] [address] [id number] [place] [address] Sep, [facility] [place] [facility] [address] [id number] [place] [address] Sep, [facility] [place] [facility] [address] [id number] [place] [address] Sep, [facility] [place] [facility] [address] [id number] [place] [address] Sep, [facility] [place] [facility] [address] [facility] [id number] [place] [address] Sep, [facility] [place] [facility] [address] [id number] [place] [address] Aug, [facility] [place] [facility] [address] [id number] [place] [address] Aug, [facility] [place] [facility] [address] [id number] [place] [address] Aug, [facility] [place] [facility] [address] [id number] [place] [address] May, [facility] [place] [facility] [address] [id number] [place] [address] Nov, [facility] [address] [id number] [place] [address] Oct, [facility] [place] [facility] [address] [id number] [place] [address] Oct, [facility] [place] [facility] [address] [id number] [place] [address] Oct, [facility] [place] [facility] [address] [id number] [place] [address] Oct, [facility] [address] [id number] [place] [address] Oct, [facility] [place] [facility] [address] [id number] [place] [address] Sep, [facility] [place] [facility] [address] [facility] [id number] [place] [address] Sep, [facility] [address] [id number], [place] [address] 14 Jul, 2010 [facility] [place] [facility] [address] [id number] [place] [address] Oct, [facility] [place] [facility] [address] [id number], [place] [address] Oct, [facility] [place] [facility] [address] [facility] [id number], [place] [address] Oct, [facility] [place] [facility] [address] [id number], [place] [address] Oct, [facility] [place] [facility] [address] [id number], [place] [address] Sep, [facility] [place] [facility] [address] [id number], [place] [address] Sep, [facility] [place] [facility] [address] [facility] [id number], [place] [address] Sep, [facility] [place] [facility] [address] [id number], [place] [address] Sep, [facility] [address] [facility] [id number] [place] [address] Sep, [facility] [address] [facility] [id number], [place] [address] Jul, [facility] [address] [facility] [id number], [place] [address] Apr, [facility] [address] [facility] [id number], [place] [address] Dec, IMMUNIZATIONS No Known Immunizations SOCIAL HISTORY Never Assessed [place]AS[place] [place] VITAL SIGNS MEDICATIONS Unknown [...]
--- OUTSIDE RECORDS SUMMARY | 2019-06-14 11:20 | XMS REPORT ---
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 Name Role Phone Migration, Doctor Unavailable Unavailable PROBLEMS Type Condition ICD9-CM Code MBO97-NK Code Onset Dates Condition Status SNOMED Code Problem Essential hypertension I10 Active 24311839 Problem Prediabetes R73.03 Active 101137913 Problem Reactive depression F32.9 Active 98882011 Problem Acquired hypothyroidism E03.9 Active 083231164 Problem Gastroesophageal reflux disease, esophagitis presence not specified K21.9 Active 535399716 Problem Mixed hyperlipidemia E78.2 Active 967550573 Problem Other chronic pain G89.29 Active 40382398 Problem Chronic obstructive pulmonary disease, unspecified COPD type J44.9 Active 44955378 Problem Cigarette nicotine dependence without complication F17.210 Active 64818086 Problem Sinusitis J32.9 Active 03071469 Problem Lumbago with sciatica, right side M54.41 Active [id number] Problem Chronic pain G89.29 Active 20926248 Problem Lumbago with sciatica, left side M54.42 Active 008721994 Problem DM neuro manif type II E11.49 Active 55291715 Problem Seizures R56.9 Active 91021142 Problem Iron deficiency anemia due to chronic blood loss D50.0 Active 146743573 Problem Seasonal allergies J30.2 Active 415336733 ALLERGIES No Information ENCOUNTERS Encounter Location Date Diagnosis [facility] [id number] [address] Feb, [facility] [id number] [place] [address] Feb, [facility] [id number] [place] [address] Jan, [facility] [id number], [place] [address] Jan, Acute cystitis with hematuria N30.01 and Dysuria R30.0 [facility] [id number], [place] [address] Jan, [facility] [address] [facility] [id number] [address] Dec, [facility] [address], [place] [address] Dec, [facility] [address], [place] [address] Dec, [facility] [address] [address] Dec, [facility] [address], [place] [address] Dec, Routine adult health maintenance Z00.00 ; Chronic obstructive pulmonary disease, unspecified COPD type J44.9 and Encounter for immunization Z23 [facility] [address], [place] [address] Nov, [facility] [address] [address] Nov, UTI (urinary tract infection) N39.0 and Other chronic pain G89.29 [facility] [address] [address] Nov, [facility] [id number] [address] Nov, [facility] [id number] [address] Nov, Painful urination R30.9 and UTI (urinary tract infection) N39.0 [facility] [id number] [address] Nov, [facility] [id number] [address] Nov, UTI (urinary tract infection) N39.0 [address] [id number] [place] [address] Nov, Dysuria R30.0 ; UTI (urinary tract infection) N39.0 and Chronic pain G89.29 [place] [id number] [place] [address] Nov, [place] [address] [address] Oct, Cough R05 [place] [id number] [place] [address] Oct, Sinusitis J32.9 [place] [id number] [place] [address] Oct, [place] [id number] [place] [address] Oct, UTI (urinary tract infection) N39.0 and URI (upper respiratory infection) J06.9 [place] [id number] [place] [address] Sep, Pain in thoracic spine M54.6 [place] [id number] [place] [address] 09 Sep, 2018 Type 2 diabetes mellitus with hyperglycemia E11.65 [place] [id number] [place] [address] Sep, Chronic obstructive pulmonary disease, unspecified COPD type J44.9 ; Abrasion of right ear canal, initial encounter S00.411A ; Cigarette nicotine dependence without complication F17.210 ; Right leg pain M79.604 and Seasonal allergies J30.2 [place] [id number] [place] [address] Aug, [place] [id number] [place] [address] Aug, [place] [address] [place] [address] Aug, Pain in thoracic spine M54.6 [address] [address] [address] Aug, [place] [address] [address] Aug, Chronic obstructive pulmonary disease, unspecified COPD type J44.9 ; Complete amputation of right foot, 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 ; Cigarette nicotine dependence without complication F17.210 and BMI 40.0-44.9, adult Z68.41 [address] [address] [address] Jul, [place] [address] [address] Jul, [place] [address] [address] Jul, Onychomycosis B35.1 ; Onychocryptosis L60.0 and DM neuro manif type II E11.49 [place] [address] [address] Jun, Pain in thoracic spine M54.6 [place] [address] [address] Jun, Iron deficiency anemia due to chronic blood loss D50.0 and Hematochezia K92.1 [place] [address] [address] Jun, Gastroenteritis K52.9 and Abnormal RBC indices R71.8 [place] [address] [address] Jun, [place] [address] [address] Jun, Chest congestion R09.89 and Seizures R56.9 [place] [address] [address] May, Pain in thoracic spine M54.6 [facility] [address] [facility] [id number] [place] [address] May, [facility] [id number] [place] [address] May, [facility] [id number] [place] [address] May, [facility] [id number] [place] [address] May, Acute non-recurrent frontal sinusitis J01.10 and Dermatitis L30.9 [facility] [id number] [place] [address] May, [facility] [id number] [place] [address] May, Pain in thoracic spine M54.6 [facility] [id number] [place] [address] May, [facility] [id number] [place] [address] May, Acute nasopharyngitis J00 [facility] [id number] [place] [address] May, [facility] [id number] [place] [address] May, [facility] [id number] [place] [address] Apr, [facility] [id number] [place] [address] Apr, [facility] [id number] [place] [address] Apr, [facility] [id number] [place] [address] Apr, [place] [id number] [place] [address] Apr, Pain in right ankle and joints of right foot M25.571 [place] [id number] [place] [address] Apr, [place] [id number] [place] [address] Apr, Bronchitis J40 ; Pain in right ankle and joints of right foot M25.571 ; Other chronic pain G89.29 ; Prediabetes R73.03 ; Chronic obstructive pulmonary disease, unspecified COPD type J44.9 and Cigarette nicotine dependence without complication F17.210 [facility] [id number] [place] [address] 13 Apr, 2018 Seasonal allergic rhinitis, unspecified trigger J30.[address] [address] 08 Apr, 2018 Onychomycosis B35.1 ; Onychocryptosis L60.0 and DM neuro manif type II E11.49 [id number] [place] [address] Apr, Reactive depression F32.9 ; Thoracic myofascial strain, initial encounter S29.019A and Leg cramps R25.2 [place] [id number] [place] [address] March, [place] [id number] [place] [address] March, Type 2 diabetes mellitus with hyperglycemia E11.65 [place] [id number] [place] [address] March, Reactive depression F32.9 [id number] [place] [address] March, Pain in thoracic spine M54.6 and Other chronic pain G89.29 [address] [address] [address] Feb, [place] [address] [address] Jan, Reactive depression F32.9 ; Essential hypertension I10 ; Gastroesophageal reflux disease, esophagitis presence not specified K21.9 ; Lumbago with sciatica, left side M54.42 and Lumbago with sciatica, right side M54.41 [address] [address] [address] Jan, Reactive depression F32.9 and Pharyngoesophageal dysphagia R13.14 [place] [address] [address] Jan, [place] [address] [address] Jan, Encounter for immunization Z23 [place] [address] [address] Jan, Onychomycosis B35.1 and DM neuro manif type II E11.[address] [address] Jan, [place] [address] [address] Jan, Prediabetes R73.03 [address] [address] [address] Dec, [place] [address] [address] Dec, Essential hypertension I10 ; Mixed hyperlipidemia E78.2 ; Acquired hypothyroidism E03.9 ; Reactive depression F32.9 and Prediabetes R73.03 [address] [address] [address] Dec, [place] [address] [address] Dec, [facility] [address], [place] [address] Dec, DM neuro manif type II E11.49 [facility] [address], [place] [address] 08 Dec, 2017 Bruise T14.8XXA ; Type 2 diabetes mellitus with hyperglycemia E11.65 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 [facility] [id number] [place] [address] Oct, [facility] [id number] [place] [address] March, Onychomycosis B35.1 and DM neuro manif type II E11.49 [facility] [id number] [place] [address] Jun, [facility] [id number] [place] [address] Jun, [facility] [id number] [place] [address] Jun, COPD with acute exacerbation 491.21 [facility] [id number] [place] [address] Apr, [facility] [address], [place] [address] Feb, [facility] [id number], [place] [address] Feb, [facility] [id number] [place] [address] Jan, [facility] [id number] [place] [address] Jan, [facility] [address], [place] [address] Jan, [facility] [address] [facility] [id number] [place] [address] 2014 [facility] [place] [facility] [address] [id number] [place] [address] 24 Jan, 2015 [facility] [place] [facility] [address] [id number] [place] [address] 23 Jan, 2014 [facility] [place] [facility] [address] [id number] [place] [address] 23 Jan, 2014 [facility] [place] [facility] [address] [id number] [place] [address] 23 Jan, 2015 [facility] [place] [facility] [address] [id number] [place] [address] 23 Jan, 2014 [facility] [place] [facility] [address] [id number] [place] [address] 19 Jan, 2014 [facility] [place] [facility] [address] [id number] [place] [address] 19 Jan, 2014 [facility] [place] [facility] [address] [id number] [place] [address] 18 Jan, 2015 [facility] [place] [facility] [address] [id number] [place] [address] 18 Jan, 2014 [facility] [place] [facility] [address] [id number] [place] [address] 16 Jan, 2014 [facility] [place] [facility] [address] [id number] [place] [address] 16 Jan, 2014 [facility] [place] [facility] [address] [id number] [place] [address] 16 Jan, 2014 [facility] [place] [facility] [address] [id number] [place] [address] 16 Jan, 2014 [facility] [place] [facility] [address] [id number] [place] [address] 15 Jan, 2014 [facility] [place] [facility] [address] [id number] [place] [address] 13 Jan, 2015 [facility] [place] [facility] [address] [id number] [place] [address] 13 Jan, 2015 [facility] [place] [facility] [address] [id number] [place] [address] Jan, [facility] [place] [facility] [address] [id number] [place] [address] Jan, [facility] [place] [facility] [address] [id number] [place] [address] Jan, [facility] [place] [facility] [address] [id number] [place] [address] Jan, [facility] [place] [facility] [address] [id number] [place] [address] Jan, [facility] [place] [facility] [address] [facility] [id number] [place] [address] 24 Dec, 2014 [facility] [place] [facility] [address] [facility] [id number] [place] [address] Dec, 2014 [facility] [place] [facility] [address] [facility] [id number] [place] [address] Dec, 2014 [facility] [place] [facility] [address] [facility] [id number] [place] [address] Dec, 2014 [facility] [place] [facility] [address] [facility] [id number] [place] [address] Dec, 2014 [facility] [place] [facility] [address] [facility] [id number] [place] [address] Dec, 2014 [facility] [place] [facility] [address] [facility] [id number] [place] [address] Dec, 2014 [facility] [place] [facility] [address] [facility] [id number] [place] [address] Dec, 2014 [facility] [place] [facility] [address] [facility] [id number] [place] [address] 19 Dec, 2014 [facility] [place] [facility] [address] [id number] [place] [address] Dec, [facility] [place] [facility] [address] [id number] [place] [address] Dec, [facility] [place] [facility] [address] [id number] [place] [address] Dec, [facility] [place] [facility] [address] [id number] [place] [address] Nov, [facility] [place] [facility] [address] [id number] [place] [address] Nov, [facility] [place] [facility] [address] [id number] [place] [address] Nov, [facility] [place] [facility] [address] [id number] [place] [address] Nov, [facility] [place] [facility] [address] [id number] [place] [address] Nov, [facility] [place] [facility] [address] [id number] [place] [address] Nov, [facility] [place] [facility] [address] [id number] [place] [address] Nov, [facility] [place] [facility] [address] [id number] [place] [address] Nov, [facility] [place] [facility] [address] [id number] [place] [address] Nov, [facility] [place] [facility] [address] [id number] [place] [address] Nov, [facility] [place] [facility] [address] [id number] [place] [address] Nov, [facility] [place] [facility] [address] [id number] [place] [address] Nov, [facility] [place] [facility] [address] [id number] [place] [address] 31 Oct, 2014 [facility] [place] [facility] [address] [id number] [place] [address] 31 Oct, 2014 [facility] [place] [facility] [address] [id number] [place] [address] 30 Oct, 2014 [facility] [place] [facility] [address] [id number] [place] [address] 30 Oct, 2014 [facility] [place] [facility] [address] [id number] [place] [address] 29 Oct, 2014 [facility] [place] [facility] [address] [id number] [place] [address] 29 Oct, 2014 [facility] [place] [facility] [address] [id number] [place] [address] Oct, [facility] [place] [facility] [address] [id number] [place] [address] Oct, [facility] [place] [facility] [address] [id number] [place] [address] 17 Oct, 2014 [facility] [place] [facility] [address] [id number] [place] [address] 17 Oct, 2014 [facility] [place] [facility] [address] [id number] [place] [address] 16 Oct, 2014 [facility] [place] [facility] [address] [id number] [place] [address] 16 Oct, 2014 [facility] [place] [facility] [address] [id number] [place] [address] 15 Oct, 2014 [facility] [place] [facility] [address] [id number] [place] [address] 15 Oct, 2014 [facility] [place] [facility] [address] [id number] [place] [address] 08 Oct, 2014 [facility] [place] [facility] [address] [id number] [place] [address] 24 Sep, 2014 [facility] [place] [facility] [address] [id number] [place] [address] Sep, [facility] [place] [facility] [address] [id number] [place] [address] Sep, [facility] [place] [facility] [address] [id number] [place] [address] Sep, [facility] [place] [facility] [address] [id number] [place] [address] Aug, [facility] [place] [facility] [address] [id number] [place] [address] Aug, [facility] [place] [facility] [address] [id number] [place] [address] Aug, [facility] [place] [facility] [address] [id number] [place] [address] Aug, [facility] [place] [facility] [address] [id number] [place] [address] Aug, [facility] [place] [facility] [address] [id number] [place] [address] Aug, [facility] [place] [facility] [address] [id number] [place] [address] 29 Jul, 2014 [facility] [place] [facility] [address] [id number] [place] [address] 29 Jul, 2014 [facility] [place] [facility] [address] [id number] [place] [address] 15 Jul, 2014 [facility] [place] [facility] [address] [id number] [place] [address] 15 Jul, 2014 [facility] [place] [facility] [address] [id number] [place] [address] 08 Jul, 2014 [facility] [place] [facility] [address] [id number] [place] [address] 08 Jul, 2014 [facility] [place] [facility] [address] [id number] [place] [address] Jun, [facility] [place] [facility] [address] [id number] [place] [address] Jun, [facility] [place] [facility] [address] [id number] [place] [address] Jun, [facility] [place] [facility] [address] [id number] [place] [address] Jun, [facility] [place] [facility] [address] [id number] [place] [address] Jun, [facility] [place] [facility] [address] [id number] [place] [address] Jun, [facility] [place] [facility] [address] [id number] [place] [address] Jun, [facility] [place] [facility] [address] [id number] [place] [address] May, [facility] [place] [facility] [address] [id number] [place] [address] May, [facility] [place] [facility] [address] [id number] [place] [address] May, [facility] [place] [facility] [address] [id number] [place] [address] May, [facility] [place] [facility] [address] [id number] [place] [address] May, [facility] [place] [facility] [address] [id number] [place] [address] May, [facility] [place] [facility] [address] [id number] [place] [address] May, [facility] [place] [facility] [address] [id number] [place] [address] May, [facility] [place] [facility] [address] [id number] [place] [address] May, [facility] [place] [facility] [address] [id number] [place] [address] May, [facility] [place] [facility] [address] [id number] [place] [address] May, [facility] [place] [facility] [address] [id number] [place] [address] May, [facility] [place] [address] [id number] [place] [address] Apr, [facility] [place] [facility] [address] [id number] [place] [address] Apr, [facility] [place] [facility] [address] [id number] [place] [address] Apr, [facility] [place] [address] [id number] [place] [address] Apr, [facility] [place] [facility] [address] [id number] [place] [address] Apr, [facility] [place] [facility] [address] [id number] [place] [address] Apr, [facility] [place] [facility] [address] [id number] [place] [address] Apr, [facility] [place] [facility] [address] [id number] [place] [address] Apr, [facility] [place] [facility] [address] [id number] [place] [address] Apr, [facility] [place] [facility] [address] [id number] [place] [address] Apr, [facility] [place] [facility] [address] [id number] [place] [address] March, [facility] [place] [facility] [address] [id number] [place] [address] March, [facility] [place] [facility] [address] [id number] [place] [address] March, [facility] [place] [facility] [address] [id number] [place] [address] March, [facility] [address] [id number] [place] [address] March, [facility] [address] [id number] [place] [address] March, [facility] [address] [id number] [place] [address] Feb, [facility] [address] [id number] [place] [address] Feb, [facility] [address] [id number] [place] [address] Feb, [facility] [address] [id number] [place] [address] Feb, [facility] [address] [id number] [place] [address] Feb, [facility] [address] [id number] [place] [address] Feb, [facility] [address] [id number] [place] [address] Feb, [facility] [address] [id number] [place] [address] Feb, [facility] [address] [id number] [place] [address] Feb, [facility] [address] [id number] [place] [address] Feb, [facility] [address] [id number] [place] [address] Jan, [facility] [place] [facility] [address] [id number] [place] [address] Jan, [facility] [place] [facility] [address] [id number] [place] [address] Jan, [facility] [place] [facility] [address] [id number] [place] [address] Jan, [facility] [place] [facility] [address] [id number] [place] [address] Jan, [facility] [place] [facility] [address] [id number] [place] [address] Jan, [facility] [place] [facility] [address] [id number] [place] [address] Jan, [facility] [place] [facility] [address] [id number] [place] [address] Jan, [facility] [place] [facility] [address] [id number] [place] [address] Dec, [facility] [place] [facility] [address] [id number] [place] [address] Dec, [facility] [place] [facility] [address] [id number] [place] [address] Dec, [facility] [place] [facility] [address] [id number] [place] [address] Dec, [facility] [place] [facility] [address] [id number] [place] [address] Dec, [facility] [place] [facility] [address] [id number] [place] [address] Dec, [facility] [place] [facility] [address] [id number] [place] [address] Dec, [facility] [place] [facility] [address] [id number] [place] [address] Dec, [facility] [place] [facility] [address] [id number] [place] [address] Nov, [facility] [place] [facility] [address] [id number] [place] [address] Nov, [facility] [place] [facility] [address] [id number] [place] [address] Nov, [facility] [address] [id number] [place] [address] Nov, [facility] [place] [facility] [address] [id number] [place] [address] Nov, [facility] [address] [id number] [place] [address] Nov, [facility] [place] [facility] [address] [id number] [place] [address] Nov, [facility] [place] [facility] [address] [id number] [place] [address] Nov, [facility] [place] [facility] [address] [id number] [place] [address] Nov, [facility] [place] [facility] [address] [id number] [place] [address] Nov, [facility] [address] [id number] [place] [address] Nov, [facility] [place] [facility] [address] [id number] [place] [address] Oct, [facility] [address] [id number] [place] [address] Oct, [facility] [place] [facility] [address] [id number] [place] [address] Oct, [facility] [place] [facility] [address] [id number] [place] [address] Oct, [facility] [place] [facility] [address] [id number] [place] [address] Sep, [facility] [place] [facility] [address] [id number] [place] [address] Sep, [facility] [place] [facility] [address] [id number] [place] [address] Sep, [facility] [place] [facility] [address] [id number] [place] [address] Sep, [facility] [place] [facility] [address] [id number] [place] [address] Aug, [facility] [place] [facility] [address] [id number] [place] [address] Aug, [facility] [place] [facility] [address] [id number] [place] [address] Aug, [facility] [place] [facility] [address] [id number] [place] [address] Aug, [facility] [place] [facility] [address] [id number] [place] [address] Aug, [facility] [place] [facility] [address] [id number] [place] [address] Aug, [facility] [place] [facility] [address] [id number] [address] Aug, [facility] [place] [facility] [address] [id number] [place] [address] Aug, [facility] [place] [facility] [address] [id number], [place] [address] 28 Jul, 2013 [facility] [place] [facility] [address] [id number], [place] [address] 27 Jul, 2013 [facility] [place] [facility] [address] [id number], [place] [address] 26 Jul, 2013 [facility] [place] [facility] [address] [id number] [place] [address] 24 Jul, 2013 [facility] [place] [facility] [address] [id number], [place] [address] 24 Jul, 2013 [facility] [place] [facility] [address] [id number] [place] [address] 23 Jul, 2013 [facility] [place] [facility] [address] [id number] [place] [address] 19 Jul, 2012 [facility] [place] [facility] [address] [id number] [place] [address] 18 Sep, 2012 [facility] [place] [facility] [address] [id number] [place] [address] 17 Jul, 2012 [facility] [place] [facility] [address] [id number] [place] [address] 16 Jul, 2012 [facility] [place] [facility] [address] [id number] [place] [address] 13 Jul, 2012 [facility] [place] [facility] [address] [id number] [place] [address] 13 Jul, 2012 [facility] [place] [facility] [address] [id number] [place] [address] 12 Jul, 2012 [facility] [place] [facility] [address] [id number] [place] [address] 11 Jul, 2012 [facility] [place] [facility] [address] [id number] [place] [address] 04 Jul, 2013 [facility] [place] [facility] [address] [id number] [place] [address] 30 Jun, 2013 [facility] [place] [facility] [address] [id number] [place] [address] Jun, [facility] [place] [facility] [address] [id number] [place] [address] Jun, [facility] [place] [facility] [address] [id number] [place] [address] May, [facility] [place] [facility] [address] [id number] [place] [address] May, [facility] [place] [facility] [address] [id number] [place] [address] May, [facility] [place] [facility] [address] [id number] [place] [address] May, [facility] [place] [facility] [address] [id number] [place] [address] Apr, [facility] [address] [id number] [place] [address] Apr, [facility] [place] [facility] [address] [id number] [place] [address] Apr, [facility] [place] [facility] [address] [id number] [place] [address] Apr, [facility] [address] [id number] [place] [address] March, [facility] [place] [facility] [address] [id number] [place] [address] March, [facility] [address] [id number] [place] [address] March, [facility] [address] [id number] [place] [address] Feb, [facility] [address] [id number] [place] [address] Feb, [facility] [address] [id number] [place] [address] Jan, [facility] [place] [facility] [address] [id number] [place] [address] Jan, [facility] [place] [facility] [address] [id number] [place] [address] Jan, [facility] [place] [facility] [address] [id number] [place] [address] Jan, [facility] [place] [facility] [address] [id number] [place] [address] Jan, [facility] [place] [facility] [address] [id number] [place] [address] Dec, [facility] [place] [facility] [address] [id number] [place] [address] Dec, [facility] [address] [id number] [place] [address] Dec, [facility] [address] [id number] [place] [address] Dec, [facility] [address] [id number] [place] [address] Dec, [facility] [address] [id number] [place] [address] Dec, [facility] [address] [id number] [place] [address] Dec, [facility] [address] [id number] [place] [address] Dec, [facility] [address] [id number] [place] [address] Nov, [facility] [address] [id number] [place] [address] Nov, [facility] [address] [id number] [place] [address] Nov, [facility] [address] [facility] [id number] [place] [address] Nov, [facility] [address] [id number] [place] [address] Nov, [facility] [address] [id number][place] [address] Nov, [facility] [address] [id number] [place] [address] Nov, [facility] [address] [id number] [place] [address] Oct, [facility] [address] [id number], [place] [address] Oct, [facility] [place] [facility] [address] [id number] [place] [address] Oct, [facility] [place] [facility] [address] [id number] [place] [address] Oct, [facility] [place] [facility] [address] [id number] [place] [address] Oct, [facility] [place] [facility] [address] [id number] [place] [address] Oct, [facility] [place] [facility] [address] [id number] [place] [address] Oct, [facility] [place] [facility] [address] [id number] [place] [address] Oct, [facility] [place] [facility] [address] [id number] [place] [address] Sep, [facility] [place] [facility] [address] [id number] [place] [address] Sep, [facility] [place] [facility] [address] [id number] [place] [address] Sep, [facility] [place] [facility] [address] [id number] [place] [address] Sep, [facility] [place] [facility] [address] [id number] [place] [address] Sep, [facility] [place] [facility] [address] [id number] [place] [address] Sep, [facility] [place] [facility] [address] [id number] [place] [address] Sep, [facility] [place] [facility] [address] [id number] [place] [address] Sep, [facility] [place] [facility] [address] [id number] [place] [address] Sep, [facility] [place] [facility] [address] [id number] [place] [address] Sep, [facility] [place] [facility] [address] [id number] [place] [address] Sep, [facility] [place] [facility] [address] [id number] [place] [address] Sep, [facility] [place] [facility] [address] [facility] [id number] [place] [address] Sep, [facility] [place] [facility] [address] [id number] [place] [address] Sep, [facility] [place] [facility] [address] [id number] [place] [address] Sep, [facility] [place] [facility] [address] [facility] [id number] [place] [address] Sep, [facility] [place] [facility] [address] [facility] [id number] [place] [address] Sep, [facility] [place] [facility] [address] [id number], [place] [address] Sep, [facility] [place] [facility] [address] [id number], [place] [address] Sep, [facility] [place] [facility] [address] [facility] [id number], [place] [address] Sep, [facility] [place] [facility] [address] [id number], [place] [address] Aug, [facility] [place] [facility] [address] [id number], [place] [address] Aug, [facility] [place] [facility] [address] [id number], [place] [address] Aug, [facility] [place] [facility] [address] [facility] [id number], [place] [address] Aug, [facility] [place] [facility] [address] [facility] [id number], [place] [address] Aug, [facility] [place] [facility] [address] [id number] [place] [address] 18 Aug, 2011 [facility] [place] [facility] [address] [id number] [place] [address] 18 Aug, 2012 [facility] [place] [facility] [address] [id number] [place] [address] 17 Aug, 2012 [facility] [place] [facility] [address] [id number] [place] [address] 16 Aug, 2012 [facility] [place] [facility] [address] [id number] [place] [address] 16 Aug, 2012 [facility] [place] [facility] [address] [id number] [place] [address] 15 Aug, 2012 [facility] [place] [facility] [address] [id number] [place] [address] 09 Aug, 2012 [facility] [place] [facility] [address] [id number] [place] [address] 05 Aug, 2012 [facility] [place] [facility] [address] [id number] [place] [address] 05 Aug, 2012 [facility] [place] [facility] [address] [id number] [place] [address] 04 Aug, 2012 [facility] [place] [facility] [address] [id number] [place] [address] 14 Jul, 2012 [facility] [place] [facility] [address] [id number] [place] [address] 10 Jul, 2012 [facility] [place] [facility] [address] [id number] [place] [address] Jun, [facility] [place] [facility] [address] [id number] [place] [address] Jun, [facility] [place] [facility] [address] [id number] [place] [address] May, [facility] [place] [facility] [address] [id number] [place] [address] May, [facility] [place] [facility] [address] [id number] [place] [address] May, [facility] [place] [facility] [address] [id number] [place] [address] May, [facility] [place] [facility] [address] [id number] [place] [address] May, [facility] [place] [facility] [address] [id number] [place] [address] May, [facility] [address] [id number] [place] [address] Apr, [facility] [place] [facility] [address] [id number] [place] [address] Apr, [facility] [address] [id number] [place] [address] March, [facility] [address] [id number] [place] [address] March, [facility] [address] [id number] [place] [address] March, [facility] [address] [id number] [place] [address] March, [facility] [place] [facility] [address] [id number] [place] [address] March, [facility] [place] [facility] [address] [id number] [place] [address] March, [facility] [place] [facility] [address] [id number] [place] [address] Feb, [facility] [place] [facility] [address] [id number] [place] [address] Feb, [facility] [place] [facility] [address] [id number] [place] [address] Feb, [facility] [place] [facility] [address] [id number] [place] [address] 25 Feb, 2012 [facility] [address] [id number] [place] [address] 23 Feb, 2012 [facility] [place] [facility] [address] [id number] [place] [address] Feb, [facility] [place] [facility] [address] [id number] [place] [address] Feb, [facility] [place] [facility] [address] [id number] [place] [address] Feb, [facility] [place] [facility] [address] [id number] [place] [address] Feb, [facility] [place] [facility] [address] [id number] [place] [address] 30 Jan, 2012 [facility] [place] [facility] [address] [id number] [place] [address] 27 Jan, 2012 [facility] [place] [facility] [address] [id number] [place] [address] Jan, [facility] [place] [facility] [address] [id number] [place] [address] 22 Jan, 2012 [facility] [place] [facility] [address] [id number] [place] [address] Jan, [facility] [place] [facility] [address] [id number] [place] [address] Jan, [facility] [place] [facility] [address] [id number] [place] [address] 14 Jan, 2012 [facility] [place] [facility] [address] [id number] [place] [address] 09 Jan, 2012 [facility] [place] [facility] [address] [id number] [place] [address] 09 Jan, 2012 [facility] [place] [facility] [address] [id number] [place] [address] 08 Jan, 2012 [facility] [place] [facility] [address] [id number] [place] [address] 07 Jan, 2012 [facility] [place] [facility] [address] [id number] [place] [address] Jan, [facility] [place] [facility] [address] [id number] [place] [address] Jan, [facility] [place] [facility] [address] [id number] [place] [address] Jan, [facility] [place] [facility] [address] [id number] [place] [address] Dec, [facility] [place] [facility] [address] [id number] [place] [address] Dec, [facility] [place] [facility] [address] [facility] [id number] [place] [address] Dec, [facility] [place] [facility] [address] [id number] [place] [address] Dec, [facility] [place] [facility] [address] [id number] [place] [address] 16 Dec, 2011 [facility] [place] [facility] [address] [facility] [id number] [place] [address] Dec, [facility] [place] [facility] [address] [facility] [id number] [place] [address] Dec, [facility] [place] [facility] [address] [id number], [place] [address] Dec, [facility] [place] [facility] [address] [id number] [place] [address] Dec, [facility] [place] [facility] [address] [id number] [place] [address] Nov, [facility] [place] [facility] [address] [id number] [place] [address] Nov, [facility] [place] [facility] [address] [id number][place] [address] Nov, [facility] [address] [id number] [place] [address] Nov, [facility] [place] [facility] [address] [id number] [place] [address] Oct, [facility] [place] [facility] [address] [id number] [place] [address] Oct, [facility] [place] [facility] [address] [id number] [place] [address] Oct, [facility] [place] [facility] [address] [id number] [place] [address] Oct, [facility] [place] [facility] [address] [id number] [place] [address] Oct, [facility] [place] [facility] [address] [facility] [id number] [place] [address] Oct, [facility] [place] [facility] [address] [id number] [place] [address] Oct, [facility] [place] [facility] [address] [id number] [place] [address] Sep, [facility] [place] [facility] [address] [facility] [id number] [place] [address] Sep, [facility] [place] [facility] [address] [id number] [place] [address] Sep, [facility] [place] [facility] [address] [id number] [place] [address] Sep, [facility] [place] [facility] [address] [id number] [place] [address] Sep, [facility] [place] [facility] [address] [facility] [id number] [place] [address] Sep, [facility] [place] [facility] [address] [facility] [id number] [place] [address] Sep, [facility] [place] [facility] [address] [id number] [place] [address] Sep, [facility] [place] [facility] [address] [id number] [place] [address] Sep, [facility] [place] [facility] [address] [id number] [place] [address] Aug, [facility] [place] [facility] [address] [id number] [place] [address] Aug, [facility] [place] [facility] [address] [id number] [place] [address] Aug, [facility] [place] [facility] [address] [id number] [place] [address] May, [facility] [place] [facility] [address] [id number] [place] [address] Nov, [facility] [place] [facility] [address] [id number] [place] [address] Oct, [facility] [place] [facility] [address] [id number] [place] [address] Oct, [facility] [place] [facility] [address] [id number] [place] [address] Oct, [facility] [place] [facility] [address] [facility] [id number] [place] [address] Oct, [facility] [place] [facility] [address] [id number] [place] [address] Oct, [facility] [place] [facility] [address] [id number] [place] [address] Sep, [facility] [place] [facility] [address] [id number] [place] [address] Sep, [facility] [place] [facility] [address] [id number] [place] [address] 14 Jul, 2010 [facility] [place] [facility] [address] [id number] [place] [address] Oct, [facility] [address] [facility] [id number], [place] [address] Oct, [facility] [address] [facility] [id number], [place] [address] Oct, [facility] [address] [facility] [id number], [place] [address] Oct, [facility] [address] [facility] [id number], [place] [address] Sep, [facility] [address] [facility] [id number], [place] [address] Sep, [facility] [address] [facility] [id number], [place] [address] Sep, [facility] [id number], [place] [address] Sep, [facility] [id number], [place] [address] Sep, [facility] [address] [facility] [id number], [place] [address] Jul, [facility] [id number], [place] [address] Apr, [facility] [address] [id number], [place] [address] Dec, IMMUNIZATIONS No Known Immunizations SOCIAL HISTORY Never Assessed REASON FOR VISIT [facility] PLAN OF CARE VITAL SIGNS MEDICATIONS Unknown [...]
--- OUTSIDE RECORDS SUMMARY | 2019-06-14 11:21 | XMS REPORT ---
Author Author Migration, Doctor Organization [facility] Address Unknown Phone Unavailable Care Team Providers Care Technical Specialist Cytogenetics Name Role Phone Migration, Doctor Unavailable Unavailable PROBLEMS Type Condition ICD9-CM Code XTA11-YZ Code Onset Dates Condition Status SNOMED Code Problem Essential hypertension I10 Active 50318674 Problem Prediabetes R73.03 Active 140512241 Problem Reactive depression F32.9 Active 81772595 Problem Acquired hypothyroidism E03.9 Active 722680567 Problem Gastroesophageal reflux disease, esophagitis presence not specified K21.9 Active 459002683 Problem Mixed hyperlipidemia E78.2 Active 882739092 Problem Other chronic pain G89.29 Active 88167939 Problem Chronic obstructive pulmonary disease, unspecified COPD type J44.9 Active 97189040 Problem Cigarette nicotine dependence without complication F17.210 Active 86184007 Problem Sinusitis J32.9 Active 20208358 Problem Lumbago with sciatica, right side M54.41 Active [id number] Problem Chronic pain G89.29 Active 25897511 Problem Lumbago with sciatica, left side M54.42 Active 796511826 Problem DM neuro manif type II E11.49 Active 75436124 Problem Seizures R56.9 Active 37081185 Problem Iron deficiency anemia due to chronic blood loss D50.0 Active 187886046 Problem Seasonal allergies J30.2 Active 775613004 ALLERGIES No Information ENCOUNTERS Encounter Location Date Diagnosis [facility] [id number] [address] Feb, [facility] [id number] [place] [address] Feb, [facility] [id number] [place] [address] Jan, [facility] [id number] [address] Jan, Acute cystitis with hematuria N30.01 and Dysuria R30.0 [facility] [id number] [address] Jan, [facility] [address] [facility] [id number] [address] Dec, [facility] [address] [address] Dec, [facility] [address] [address] Dec, [facility] [address] [address] Dec, [facility] [address] [address] Dec, Routine adult health maintenance Z00.00 ; Chronic obstructive pulmonary disease, unspecified COPD type J44.9 and Encounter for immunization Z23 [facility] [address] [address] Nov, [facility] [address] [address] Nov, UTI (urinary tract infection) N39.0 and Other chronic pain G89.29 [facility] [address] [address] Nov, [facility] [id number] [address] Nov, [facility] [id number] [address] Nov, Painful urination R30.9 and UTI (urinary tract infection) N39.0 [facility] [id number] [address] Nov, [facility] [id number] [address] Nov, UTI (urinary tract infection) N39.0 [address] [id number] [place] [address] Nov, Dysuria R30.0 ; UTI (urinary tract infection) N39.0 and Chronic pain G89.29 [place] [address] [place] [address] Nov, [place] [address] [address] Oct, Cough R05 [place] [id number] [place] [address] Oct, Sinusitis J32.9 [facility] [id number] [place] [address] Oct, [facility] [id number] [place] [address] Oct, UTI (urinary tract infection) N39.0 and URI (upper respiratory infection) J06.9 [facility] [id number] [place] [address] Sep, Pain in thoracic spine M54.6 [facility] [id number] [place] [address] 09 Sep, 2018 Type 2 diabetes mellitus with hyperglycemia E11.65 [facility] [id number] [place] [address] Sep, Chronic obstructive pulmonary disease, unspecified COPD type J44.9 ; Abrasion of right ear canal, initial encounter S00.411A ; Cigarette nicotine dependence without complication F17.210 ; Right leg pain M79.604 and Seasonal allergies J30.2 [place] [id number] [place] [address] Aug, [place] [place] [id number] [place] [address] Aug, [address] [address] [place] [address] Aug, Pain in thoracic spine M54.6 [address] [place] [address] [address] Aug, [address] [address] [address] Aug, Chronic obstructive pulmonary disease, unspecified COPD type J44.9 ; Complete amputation of right foot, 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 ; Cigarette nicotine dependence without complication F17.210 and BMI 40.0-44.9, adult Z68.41 [address] [address] [address] Jul, [address] [address] [address] Jul, [address] [address] [address] Jul, Onychomycosis B35.1 ; Onychocryptosis L60.0 and DM neuro manif type II E11.49 [place] [address] [address] Jun, Pain in thoracic spine M54.6 [address] [address] [address] Jun, Iron deficiency anemia due to chronic blood loss D50.0 and Hematochezia K92.1 [address] [address] [address] Jun, Gastroenteritis K52.9 and Abnormal RBC indices R71.8 [address] [address] [address] Jun, [address] [address] [address] Jun, Chest congestion R09.89 and Seizures R56.9 [address] [address] [address] May, Pain in thoracic spine M54.6 [facility] [address] [facility] [id number] [place] [address] May, [facility] [id number] [place] [address] May, [facility] [id number] [place] [address] May, [facility] [id number] [place] [address] May, Acute non-recurrent frontal sinusitis J01.10 and Dermatitis L30.9 [facility] [id number] [place] [address] May, [facility] [id number] [place] [address] May, Pain in thoracic spine M54.6 [facility] [id number] [place] [address] May, [facility] [id number] [place] [address] May, Acute nasopharyngitis J00 [facility] [id number] [place] [address] May, [facility] [id number] [place] [address] May, [facility] [id number] [place] [address] Apr, [facility] [id number] [place] [address] Apr, [facility] [id number] [place] [address] Apr, [facility] [id number] [place] [address] Apr, [place] [id number] [place] [address] Apr, Pain in right ankle and joints of right foot M25.571 [place] [id number] [place] [address] Apr, [place] [id number] [place] [address] Apr, Bronchitis J40 ; Pain in right ankle and joints of right foot M25.571 ; Other chronic pain G89.29 ; Prediabetes R73.03 ; Chronic obstructive pulmonary disease, unspecified COPD type J44.9 and Cigarette nicotine dependence without complication F17.210 [facility] [id number] [place] [address] 13 Apr, 2018 Seasonal allergic rhinitis, unspecified trigger J30.[address] [address] 08 Apr, 2018 Onychomycosis B35.1 ; Onychocryptosis L60.0 and DM neuro manif type II E11.49 [place] [id number] [place] [address] Apr, Reactive depression F32.9 ; Thoracic myofascial strain, initial encounter S29.019A and Leg cramps R25.2 [place] [id number] [place] [address] March, [place] [id number] [place] [address] March, Type 2 diabetes mellitus with hyperglycemia E11.65 [address] [id number] [place] [address] March, Reactive depression F32.9 [place] [id number] [place] [address] March, Pain in thoracic spine M54.6 and Other chronic pain G89.29 [address] [address] [address] Feb, [address] [address] [address] Jan, Reactive depression F32.9 ; Essential hypertension I10 ; Gastroesophageal reflux disease, esophagitis presence not specified K21.9 ; Lumbago with sciatica, left side M54.42 and Lumbago with sciatica, right side M54.41 [address] [address] [address] Jan, Reactive depression F32.9 and Pharyngoesophageal dysphagia R13.14 [address] [address] [address] Jan, [address] [address] [address] Jan, Encounter for immunization Z23 [address] [address] [address] Jan, Onychomycosis B35.1 and DM neuro manif type II E11.[address] [address] Jan, [address] [address] [address] Jan, Prediabetes R73.03 [address] [address] [address] Dec, [address] [address] [address] Dec, Essential hypertension I10 ; Mixed hyperlipidemia E78.2 ; Acquired hypothyroidism E03.9 ; Reactive depression F32.9 and Prediabetes R73.03 [address] [address] [address] Dec, [address] [address] [address] Dec, [facility] [address] [address] Dec, DM neuro manif type II E11.49 [facility] [address] [address] 08 Dec, 2017 Bruise T14.8XXA ; Type 2 diabetes mellitus with hyperglycemia E11.65 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 [facility] [id number] [place] [address] Oct, [facility] [id number] [place] [address] March, Onychomycosis B35.1 and DM neuro manif type II E11.49 [facility] [id number] [place] [address] Jun, [facility] [id number] [place] [address] Jun, [facility] [id number] [place] [address] Jun, COPD with acute exacerbation 491.21 [facility] [id number] [place] [address] Apr, [facility] [address] [address] Feb, [facility] [id number] [address] Feb, [facility] [id number] [place] [address] Jan, [facility] [id number] [place] [address] Jan, [facility] [address] [address] Jan, [facility] [address] [facility] [id number] [place] [address] 2014 [facility] [place] [facility] [address] [id number] [place] [address] 24 Jan, 2015 [facility] [place] [facility] [address] [id number] [place] [address] 23 Jan, 2014 [facility] [place] [facility] [address] [id number] [place] [address] 23 Jan, 2014 [facility] [place] [facility] [address] [id number] [place] [address] 23 Jan, 2015 [facility] [place] [facility] [address] [id number] [place] [address] 23 Jan, 2014 [facility] [place] [facility] [address] [id number] [place] [address] 19 Jan, 2014 [facility] [place] [facility] [address] [id number] [place] [address] 19 Jan, 2014 [facility] [place] [facility] [address] [id number] [place] [address] 18 Jan, 2015 [facility] [place] [facility] [address] [id number] [place] [address] 18 Jan, 2014 [facility] [place] [facility] [address] [id number] [place] [address] 16 Jan, 2014 [facility] [place] [facility] [address] [id number] [place] [address] 16 Jan, 2014 [facility] [place] [facility] [address] [id number] [place] [address] 16 Jan, 2014 [facility] [place] [facility] [address] [id number] [place] [address] 16 Jan, 2014 [facility] [place] [facility] [address] [id number] [place] [address] 15 Jan, 2014 [facility] [place] [facility] [address] [id number] [place] [address] 13 Jan, 2015 [facility] [place] [facility] [address] [id number] [place] [address] 13 Jan, 2015 [facility] [place] [facility] [address] [id number] [place] [address] Jan, [facility] [place] [facility] [address] [id number] [place] [address] Jan, [facility] [place] [facility] [address] [id number] [place] [address] Jan, [facility] [place] [facility] [address] [id number] [place] [address] Jan, [facility] [place] [facility] [address] [id number] [place] [address] Jan, [facility] [place] [facility] [address] [facility] [id number] [place] [address] 24 Dec, 2014 [facility] [place] [facility] [address] [facility] [id number] [place] [address] Dec, 2014 [facility] [place] [facility] [address] [facility] [id number] [place] [address] Dec, 2014 [facility] [place] [facility] [address] [facility] [id number] [place] [address] Dec, 2014 [facility] [place] [facility] [address] [facility] [id number] [place] [address] Dec, 2014 [facility] [place] [facility] [address] [facility] [id number] [place] [address] Dec, 2014 [facility] [place] [facility] [address] [facility] [id number] [place] [address] Dec, 2014 [facility] [place] [facility] [address] [facility] [id number] [place] [address] Dec, 2014 [facility] [place] [facility] [address] [facility] [id number] [place] [address] 19 Dec, 2014 [facility] [place] [facility] [address] [id number] [place] [address] Dec, [facility] [place] [facility] [address] [id number] [place] [address] Dec, [facility] [place] [facility] [address] [id number] [place] [address] Dec, [facility] [place] [facility] [address] [id number] [place] [address] Nov, [facility] [place] [facility] [address] [id number] [place] [address] Nov, [facility] [place] [facility] [address] [id number] [place] [address] Nov, [facility] [place] [facility] [address] [id number] [place] [address] Nov, [facility] [place] [facility] [address] [id number] [place] [address] Nov, [facility] [place] [facility] [address] [id number] [place] [address] Nov, [facility] [place] [facility] [address] [id number] [place] [address] Nov, [facility] [place] [facility] [address] [id number] [place] [address] Nov, [facility] [place] [facility] [address] [id number] [place] [address] Nov, [facility] [place] [facility] [address] [id number] [place] [address] Nov, [facility] [place] [facility] [address] [id number] [place] [address] Nov, [facility] [place] [facility] [address] [id number] [place] [address] Nov, [facility] [place] [facility] [address] [id number] [place] [address] 31 Oct, 2014 [facility] [place] [facility] [address] [id number] [place] [address] 31 Oct, 2014 [facility] [place] [facility] [address] [id number] [place] [address] 30 Oct, 2014 [facility] [place] [facility] [address] [id number] [place] [address] 30 Oct, 2014 [facility] [place] [facility] [address] [id number] [place] [address] 29 Oct, 2014 [facility] [place] [facility] [address] [id number] [place] [address] 29 Oct, 2014 [facility] [place] [facility] [address] [id number] [place] [address] Oct, [facility] [place] [facility] [address] [id number] [place] [address] Oct, [facility] [place] [facility] [address] [id number] [place] [address] 17 Oct, 2014 [facility] [place] [facility] [address] [id number] [place] [address] 17 Oct, 2014 [facility] [place] [facility] [address] [id number] [place] [address] 16 Oct, 2014 [facility] [place] [facility] [address] [id number] [place] [address] 16 Oct, 2014 [facility] [place] [facility] [address] [id number] [place] [address] 15 Oct, 2014 [facility] [place] [facility] [address] [id number] [place] [address] 15 Oct, 2014 [facility] [place] [facility] [address] [id number] [place] [address] 08 Oct, 2014 [facility] [place] [facility] [address] [id number] [place] [address] 24 Sep, 2014 [facility] [place] [facility] [address] [id number] [place] [address] Sep, [facility] [place] [facility] [address] [id number] [place] [address] Sep, [facility] [place] [facility] [address] [id number] [place] [address] Sep, [facility] [place] [facility] [address] [id number] [place] [address] Aug, [facility] [place] [facility] [address] [id number] [place] [address] Aug, [facility] [place] [facility] [address] [id number] [place] [address] Aug, [facility] [place] [facility] [address] [id number] [place] [address] Aug, [facility] [place] [facility] [address] [id number] [place] [address] Aug, [facility] [place] [facility] [address] [id number] [place] [address] Aug, [facility] [place] [facility] [address] [id number] [place] [address] 29 Jul, 2014 [facility] [place] [facility] [address] [id number] [place] [address] 29 Jul, 2014 [facility] [place] [facility] [address] [id number] [place] [address] 15 Jul, 2014 [facility] [place] [facility] [address] [id number] [place] [address] 15 Jul, 2014 [facility] [place] [facility] [address] [id number] [place] [address] 08 Jul, 2014 [facility] [place] [facility] [address] [id number] [place] [address] 08 Jul, 2014 [facility] [place] [facility] [address] [id number] [place] [address] Jun, [facility] [place] [facility] [address] [id number] [place] [address] Jun, [facility] [place] [facility] [address] [id number] [place] [address] Jun, [facility] [place] [facility] [address] [id number] [place] [address] Jun, [facility] [place] [facility] [address] [id number] [place] [address] Jun, [facility] [place] [facility] [address] [id number] [place] [address] Jun, [facility] [place] [facility] [address] [id number] [place] [address] Jun, [facility] [place] [facility] [address] [id number] [place] [address] May, [facility] [place] [facility] [address] [id number] [place] [address] May, [facility] [place] [facility] [address] [id number] [place] [address] May, [facility] [place] [facility] [address] [id number] [place] [address] May, [facility] [place] [facility] [address] [id number] [place] [address] May, [facility] [place] [facility] [address] [id number] [place] [address] May, [facility] [place] [facility] [address] [id number] [place] [address] May, [facility] [place] [facility] [address] [id number] [place] [address] May, [facility] [place] [facility] [address] [id number] [place] [address] May, [facility] [place] [facility] [address] [id number] [place] [address] May, [facility] [place] [facility] [address] [id number] [place] [address] May, [facility] [place] [facility] [address] [id number] [place] [address] May, [facility] [place] [facility] [address] [id number] [place] [address] Apr, [facility] [place] [facility] [address] [id number] [place] [address] Apr, [facility] [place] [facility] [address] [id number] [place] [address] Apr, [facility] [place] [facility] [address] [id number] [place] [address] Apr, [facility] [place] [facility] [address] [id number] [place] [address] Apr, [facility] [place] [facility] [address] [id number] [place] [address] Apr, [facility] [place] [facility] [address] [id number] [place] [address] Apr, [facility] [place] [facility] [address] [id number] [place] [address] Apr, [facility] [place] [facility] [address] [id number] [place] [address] Apr, [facility] [place] [facility] [address] [id number] [place] [address] Apr, [facility] [place] [facility] [address] [id number] [place] [address] March, [facility] [place] [facility] [address] [id number] [place] [address] March, [facility] [place] [facility] [address] [id number] [place] [address] March, [facility] [place] [facility] [address] [id number] [place] [address] March, [facility] [place] [facility] [address] [id number] [place] [address] March, [facility] [place] [facility] [address] [id number] [place] [address] March, [facility] [place] [facility] [address] [id number] [place] [address] Feb, [facility] [place] [facility] [address] [id number] [place] [address] Feb, [facility] [place] [facility] [address] [id number] [place] [address] Feb, [facility] [place] [facility] [address] [id number] [place] [address] Feb, [facility] [place] [facility] [address] [id number] [place] [address] Feb, [facility] [place] [facility] [address] [id number] [place] [address] Feb, [facility] [place] [facility] [address] [id number] [place] [address] Feb, [facility] [place] [facility] [address] [id number] [place] [address] Feb, [facility] [place] [facility] [address] [id number] [place] [address] Feb, [facility] [place] [facility] [address] [id number] [place] [address] Feb, [facility] [place] [facility] [address] [id number] [place] [address] Jan, [facility] [place] [facility] [address] [id number] [place] [address] Jan, [facility] [place] [facility] [address] [id number] [place] [address] Jan, [facility] [place] [facility] [address] [id number] [place] [address] Jan, [facility] [place] [facility] [address] [id number] [place] [address] Jan, [facility] [place] [facility] [address] [id number] [place] [address] Jan, [facility] [place] [facility] [address] [id number] [place] [address] Jan, [facility] [place] [facility] [address] [id number] [place] [address] Jan, [facility] [place] [facility] [address] [id number] [place] [address] Dec, [facility] [place] [facility] [address] [id number] [place] [address] Dec, [facility] [place] [facility] [address] [id number] [place] [address] Dec, [facility] [place] [facility] [address] [id number] [place] [address] Dec, [facility] [place] [facility] [address] [id number] [place] [address] Dec, [facility] [place] [facility] [address] [id number] [place] [address] Dec, [facility] [place] [facility] [address] [id number] [place] [address] Dec, [facility] [place] [facility] [address] [id number] [place] [address] Dec, [facility] [place] [facility] [address] [id number] [place] [address] Nov, [facility] [place] [facility] [address] [id number] [place] [address] Nov, [facility] [place] [facility] [address] [id number] [place] [address] Nov, [facility] [address] [id number] [place] [address] Nov, [facility] [place] [facility] [address] [id number] [place] [address] Nov, [facility] [address] [id number] [place] [address] Nov, [facility] [place] [facility] [address] [id number] [place] [address] Nov, [facility] [place] [facility] [address] [id number] [place] [address] Nov, [facility] [place] [facility] [address] [id number] [place] [address] Nov, [facility] [place] [facility] [address] [id number] [place] [address] Nov, [facility] [address] [id number] [place] [address] Nov, [facility] [place] [facility] [address] [id number] [place] [address] Oct, [facility] [address] [id number] [place] [address] Oct, [facility] [place] [facility] [address] [id number] [place] [address] Oct, [facility] [place] [facility] [address] [id number] [place] [address] Oct, [facility] [place] [facility] [address] [id number] [place] [address] Sep, [facility] [place] [facility] [address] [id number] [place] [address] Sep, [facility] [place] [facility] [address] [id number] [place] [address] Sep, [facility] [place] [facility] [address] [id number] [place] [address] Sep, [facility] [place] [facility] [address] [id number] [place] [address] Aug, [facility] [place] [facility] [address] [id number] [place] [address] Aug, [facility] [place] [facility] [address] [id number] [place] [address] Aug, [facility] [place] [facility] [address] [id number] [place] [address] Aug, [facility] [place] [facility] [address] [id number] [place] [address] Aug, [facility] [place] [facility] [address] [id number] [place] [address] Aug, [facility] [place] [facility] [address] [id number] [place] [address] Aug, [facility] [place] [facility] [address] [id number] [place] [address] Aug, [facility] [place] [facility] [address] [id number] [place] [address] 28 Jul, 2013 [facility] [place] [facility] [address] [id number] [place] [address] 27 Jul, 2013 [facility] [place] [facility] [address] [id number] [place] [address] 26 Jul, 2013 [facility] [place] [facility] [address] [id number] [place] [address] 24 Jul, 2013 [facility] [place] [facility] [address] [id number] [place] [address] 24 Jul, 2013 [facility] [place] [facility] [address] [id number] [place] [address] 23 Jul, 2013 [facility] [place] [facility] [address] [id number] [place] [address] 19 Jul, 2012 [facility] [place] [facility] [address] [id number] [place] [address] 18 Sep, 2012 [facility] [place] [facility] [address] [id number] [place] [address] 17 Jul, 2012 [facility] [place] [facility] [address] [id number] [place] [address] 16 Jul, 2012 [facility] [place] [facility] [address] [id number] [place] [address] 13 Jul, 2012 [facility] [place] [facility] [address] [id number] [place] [address] 13 Jul, 2012 [facility] [place] [facility] [address] [id number] [place] [address] 12 Jul, 2012 [facility] [place] [facility] [address] [id number] [place] [address] 11 Jul, 2012 [facility] [place] [facility] [address] [id number] [place] [address] 04 Jul, 2013 [facility] [place] [facility] [address] [id number] [place] [address] 30 Jun, 2013 [facility] [place] [facility] [address] [id number] [place] [address] Jun, [facility] [place] [facility] [address] [id number] [place] [address] Jun, [facility] [place] [facility] [address] [id number] [place] [address] May, [facility] [place] [facility] [address] [id number] [place] [address] May, [facility] [place] [facility] [address] [id number] [place] [address] May, [facility] [place] [facility] [address] [id number] [place] [address] May, [facility] [place] [facility] [address] [id number] [place] [address] Apr, [facility] [address] [id number] [place] [address] Apr, [facility] [place] [facility] [address] [id number] [place] [address] Apr, [facility] [place] [facility] [address] [id number] [place] [address] Apr, [facility] [address] [id number] [place] [address] March, [facility] [place] [facility] [address] [id number] [place] [address] March, [facility] [address] [id number] [place] [address] March, [facility] [address] [id number] [place] [address] Feb, [facility] [address] [id number] [place] [address] Feb, [facility] [address] [id number] [place] [address] Jan, [facility] [place] [facility] [address] [id number] [place] [address] Jan, [facility] [place] [facility] [address] [id number] [place] [address] Jan, [facility] [place] [facility] [address] [id number] [place] [address] Jan, [facility] [place] [facility] [address] [id number] [place] [address] Jan, [facility] [place] [facility] [address] [id number] [place] [address] Dec, [facility] [place] [facility] [address] [id number] [place] [address] Dec, [facility] [address] [id number] [place] [address] Dec, [facility] [address] [id number] [place] [address] Dec, [facility] [address] [id number] [place] [address] Dec, [facility] [address] [id number] [place] [address] Dec, [facility] [address] [id number] [place] [address] Dec, [facility] [address] [id number] [place] [address] Dec, [facility] [address] [id number] [place] [address] Nov, [facility] [address] [id number] [place] [address] Nov, [facility] [address] [id number] [place] [address] Nov, [facility] [address] [facility] [id number] [place] [address] Nov, [facility] [address] [id number] [place] [address] Nov, [facility] [address] [id number] [place] [address] Nov, [facility] [address] [id number] [place] [address] Nov, [facility] [address] [id number] [place] [address] Oct, [facility] [address] [id number] [place] [address] Oct, [facility] [place] [facility] [address] [id number] [place] [address] Oct, [facility] [place] [facility] [address] [id number] [place] [address] Oct, [facility] [place] [facility] [address] [id number] [place] [address] Oct, [facility] [place] [facility] [address] [id number] [place] [address] Oct, [facility] [place] [facility] [address] [id number] [place] [address] Oct, [facility] [place] [facility] [address] [id number] [place] [address] Oct, [facility] [place] [facility] [address] [id number] [place] [address] Sep, [facility] [place] [facility] [address] [id number] [place] [address] Sep, [facility] [place] [facility] [address] [id number] [place] [address] Sep, [facility] [place] [facility] [address] [id number] [place] [address] Sep, [facility] [place] [facility] [address] [id number] [place] [address] Sep, [facility] [place] [facility] [address] [id number] [place] [address] Sep, [facility] [place] [facility] [address] [id number] [place] [address] Sep, [facility] [place] [facility] [address] [id number] [place] [address] Sep, [facility] [place] [facility] [address] [id number] [place] [address] Sep, [facility] [place] [facility] [address] [id number] [place] [address] Sep, [facility] [place] [facility] [address] [id number] [place] [address] Sep, [facility] [place] [facility] [address] [id number] [place] [address] Sep, [facility] [place] [facility] [address] [facility] [id number] [place] [address] Sep, [facility] [place] [facility] [address] [id number] [place] [address] Sep, [facility] [place] [facility] [address] [id number] [place] [address] Sep, [facility] [place] [facility] [address] [facility] [id number] [place] [address] Sep, [facility] [place] [facility] [address] [facility] [id number] [place] [address] Sep, [facility] [place] [facility] [address] [id number] [place] [address] Sep, [facility] [place] [facility] [address] [id number] [place] [address] Sep, [facility] [place] [facility] [address] [facility] [id number] [place] [address] Sep, [facility] [place] [facility] [address] [id number] [place] [address] Aug, [facility] [place] [facility] [address] [id number] [place] [address] Aug, [facility] [place] [facility] [address] [id number] [place] [address] Aug, [facility] [place] [facility] [address] [facility] [id number] [place] [address] Aug, [facility] [place] [facility] [address] [facility] [id number] [place] [address] Aug, [facility] [place] [facility] [address] [id number] [place] [address] 18 Aug, 2011 [facility] [place] [facility] [address] [id number] [place] [address] 18 Aug, 2012 [facility] [place] [facility] [address] [id number] [place] [address] 17 Aug, 2012 [facility] [place] [facility] [address] [id number] [place] [address] 16 Aug, 2012 [facility] [place] [facility] [address] [id number] [place] [address] 16 Aug, 2012 [facility] [place] [facility] [address] [id number] [place] [address] 15 Aug, 2012 [facility] [place] [facility] [address] [id number] [place] [address] 09 Aug, 2012 [facility] [place] [facility] [address] [id number] [place] [address] 05 Aug, 2012 [facility] [place] [facility] [address] [id number] [place] [address] 05 Aug, 2012 [facility] [place] [facility] [address] [id number] [place] [address] 04 Aug, 2012 [facility] [place] [facility] [address] [id number] [place] [address] 14 Jul, 2012 [facility] [place] [facility] [address] [id number] [place] [address] 10 Jul, 2012 [facility] [place] [facility] [address] [id number] [place] [address] Jun, [facility] [place] [facility] [address] [id number] [place] [address] Jun, [facility] [place] [facility] [address] [id number] [place] [address] May, [facility] [place] [facility] [address] [id number] [place] [address] May, [facility] [place] [facility] [address] [id number] [place] [address] May, [facility] [place] [facility] [address] [id number] [place] [address] May, [facility] [place] [facility] [address] [id number] [place] [address] May, [facility] [place] [facility] [address] [id number] [place] [address] May, [facility] [address] [id number] [place] [address] Apr, [facility] [place] [facility] [address] [id number] [place] [address] Apr, [facility] [address] [id number] [place] [address] March, [facility] [address] [id number] [place] [address] March, [facility] [address] [id number] [place] [address] March, [facility] [address] [id number] [place] [address] March, [facility] [place] [facility] [address] [id number] [place] [address] March, [facility] [place] [facility] [address] [id number] [place] [address] March, [facility] [place] [facility] [address] [id number] [place] [address] Feb, [facility] [place] [facility] [address] [id number] [place] [address] Feb, [facility] [place] [facility] [address] [id number] [place] [address] Feb, [facility] [place] [facility] [address] [id number] [place] [address] 25 Feb, 2012 [facility] [address] [id number] [place] [address] 23 Feb, 2012 [facility] [place] [facility] [address] [id number] [place] [address] Feb, [facility] [place] [facility] [address] [id number] [place] [address] Feb, [facility] [place] [facility] [address] [id number] [place] [address] Feb, [facility] [place] [facility] [address] [id number] [place] [address] Feb, [facility] [place] [facility] [address] [id number] [place] [address] 30 Jan, 2012 [facility] [place] [facility] [address] [id number] [place] [address] 27 Jan, 2012 [facility] [place] [facility] [address] [id number] [place] [address] Jan, [facility] [place] [facility] [address] [id number] [place] [address] 22 Jan, 2012 [facility] [place] [facility] [address] [id number] [place] [address] Jan, [facility] [place] [facility] [address] [id number] [place] [address] Jan, [facility] [place] [facility] [address] [id number] [place] [address] 14 Jan, 2012 [facility] [place] [facility] [address] [id number] [place] [address] 09 Jan, 2012 [facility] [place] [facility] [address] [id number] [place] [address] 09 Jan, 2012 [facility] [place] [facility] [address] [id number] [place] [address] 08 Jan, 2012 [facility] [place] [facility] [address] [id number] [place] [address] 07 Jan, 2012 [facility] [place] [facility] [address] [id number] [place] [address] Jan, [facility] [place] [facility] [address] [id number] [place] [address] Jan, [facility] [place] [facility] [address] [id number] [place] [address] Jan, [facility] [place] [facility] [address] [id number] [place] [address] Dec, [facility] [place] [facility] [address] [id number] [place] [address] Dec, [facility] [place] [facility] [address] [facility] [id number] [place] [address] Dec, [facility] [place] [facility] [address] [id number] [place] [address] Dec, [facility] [place] [facility] [address] [id number] [place] [address] 16 Dec, 2011 [facility] [place] [facility] [address] [facility] [id number] [place] [address] Dec, [facility] [place] [facility] [address] [facility] [id number] [place] [address] Dec, [facility] [place] [facility] [address] [id number] [place] [address] Dec, [facility] [place] [facility] [address] [id number] [place] [address] Dec, [facility] [place] [facility] [address] [id number] [place] [address] Nov, [facility] [place] [facility] [address] [id number] [place] [address] Nov, [facility] [place] [facility] [address] [id number] [place] [address] Nov, [facility] [address] [id number] [place] [address] Nov, [facility] [place] [facility] [address] [id number] [place] [address] Oct, [facility] [place] [facility] [address] [id number] [place] [address] Oct, [facility] [place] [facility] [address] [id number] [place] [address] Oct, [facility] [place] [facility] [address] [id number] [place] [address] Oct, [facility] [place] [facility] [address] [id number] [place] [address] Oct, [facility] [place] [facility] [address] [facility] [id number] [place] [address] Oct, [facility] [place] [facility] [address] [id number] [place] [address] Oct, [facility] [place] [facility] [address] [id number] [place] [address] Sep, [facility] [place] [facility] [address] [facility] [id number] [place] [address] Sep, [facility] [place] [facility] [address] [id number] [place] [address] Sep, [facility] [place] [facility] [address] [id number] [place] [address] Sep, [facility] [place] [facility] [address] [id number] [place] [address] Sep, [facility] [place] [facility] [address] [facility] [id number] [place] [address] Sep, [facility] [place] [facility] [address] [facility] [id number] [place] [address] Sep, [facility] [place] [facility] [address] [id number] [place] [address] Sep, [facility] [place] [facility] [address] [id number] [place] [address] Sep, [facility] [place] [facility] [address] [id number] [place] [address] Aug, [facility] [place] [facility] [address] [id number] [place] [address] Aug, [facility] [place] [facility] [address] [id number] [place] [address] Aug, [facility] [place] [facility] [address] [id number] [place] [address] May, [facility] [place] [facility] [address] [id number] [place] [address] Nov, [facility] [place] [facility] [address] [id number] [place] [address] Oct, [facility] [place] [facility] [address] [id number] [place] [address] Oct, [facility] [place] [facility] [address] [id number] [place] [address] Oct, [facility] [place] [facility] [address] [facility] [id number] [place] [address] Oct, [facility] [place] [facility] [address] [id number] [place] [address] Oct, [facility] [place] [facility] [address] [id number] [place] [address] Sep, [facility] [place] [facility] [address] [id number] [place] [address] Sep, [facility] [place] [facility] [address] [id number] [place] [address] 14 Jul, 2010 [facility] [place] [facility] [address] [id number] [place] [address] Oct, [facility] [address] [facility] [id number] [place] [address] Oct, [facility] [address] [facility] [id number] [place] [address] Oct, [facility] [address] [facility] [id number] [place] [address] Oct, [facility] [address] [facility] [id number] [place] [address] Sep, [facility] [address] [facility] [id number] [place] [address] Sep, [facility] [address] [facility] [id number] [place] [address] Sep, [facility] [id number] [place] [address] Sep, [facility] [id number] [place] [address] Sep, [facility] [address] [facility] [id number] [place] [address] Jul, [facility] [id number] [place] [address] Apr, [facility] [address] [id number] [address] Dec, IMMUNIZATIONS No Known Immunizations SOCIAL HISTORY Never Assessed REASON FOR VISIT [facility] PLAN OF CARE VITAL SIGNS MEDICATIONS Unknown [...]
--- OUTSIDE RECORDS SUMMARY | 2019-06-14 11:22 | XMS REPORT ---
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 Name Role Phone Migration, Doctor Unavailable Unavailable PROBLEMS Type Condition ICD9-CM Code UNR77-OU Code Onset Dates Condition Status SNOMED Code Problem Essential hypertension I10 Active 41160642 Problem Prediabetes R73.03 Active 079653959 Problem Reactive depression F32.9 Active 48547332 Problem Acquired hypothyroidism E03.9 Active 713877682 Problem Gastroesophageal reflux disease, esophagitis presence not specified K21.9 Active 435084943 Problem Mixed hyperlipidemia E78.2 Active 435576173 Problem Other chronic pain G89.29 Active 31710988 Problem Chronic obstructive pulmonary disease, unspecified COPD type J44.9 Active 88816073 Problem Cigarette nicotine dependence without complication F17.210 Active 34526973 Problem Sinusitis J32.9 Active 70493820 Problem Lumbago with sciatica, right side M54.41 Active [id number] Problem Chronic pain G89.29 Active 55459235 Problem Lumbago with sciatica, left side M54.42 Active 911412817 Problem DM neuro manif type II E11.49 Active 18686687 Problem Seizures R56.9 Active 88338997 Problem Iron deficiency anemia due to chronic blood loss D50.0 Active 400985071 Problem Seasonal allergies J30.2 Active 509927337 ALLERGIES No Information ENCOUNTERS Encounter Location Date Diagnosis [facility] [id number] [address] Feb, [facility] [id number] [place] [address] Feb, [facility] [id number] [place] [address] Jan, [facility] [address], [place] [address] Jan, Acute cystitis with hematuria N30.01 and Dysuria R30.0 [facility] [id number], [place] [address] Jan, [facility] [address] [facility] [id number] [address] Dec, [facility] [address], [place] [address] Dec, [facility] [address], [place] [address] Dec, [facility] [address], [place] [address] Dec, [facility] [address], [place] [address] Dec, Routine adult health maintenance Z00.00 ; Chronic obstructive pulmonary disease, unspecified COPD type J44.9 and Encounter for immunization Z23 [facility] [address], [place] [address] Nov, [facility] [address], [place] [address] Nov, UTI (urinary tract infection) N39.0 and Other chronic pain G89.29 [facility] [address], [place] [address] Nov, [facility] [id number], [place] [address] Nov, [facility] [id number], [place] [address] Nov, Painful urination R30.9 and UTI (urinary tract infection) N39.0 [facility] [id number] [address] Nov, [facility] [id number], [place] [address] Nov, UTI (urinary tract infection) N39.0 [address] [place] [place] [address] Nov, Dysuria R30.0 ; UTI (urinary tract infection) N39.0 and Chronic pain G89.29 [address] [place] [address] [place] [address] Nov, [address] [place] [address] [address] Oct, Cough R05 [address] [place] [id number] [place] [address] Oct, Sinusitis J32.9 [address] [id number] [place] [address] Oct, [address] [id number] [place] [address] Oct, UTI (urinary tract infection) N39.0 and URI (upper respiratory infection) J06.9 [place] [id number] [place] [address] Sep, Pain in thoracic spine M54.6 [place] [id number] [place] [address] 09 Sep, 2018 Type 2 diabetes mellitus with hyperglycemia E11.65 [address] [id number] [place] [address] Sep, Chronic obstructive pulmonary disease, unspecified COPD type J44.9 ; Abrasion of right ear canal, initial encounter S00.411A ; Cigarette nicotine dependence without complication F17.210 ; Right leg pain M79.604 and Seasonal allergies J30.2 [address] [id number] [place] [address] Aug, [address] [place] [id number] [place] [address] Aug, [address] [place] [address] [place] [address] Aug, Pain in thoracic spine M54.6 [address] [address] [address] Aug, [address] [address] [address] Aug, Chronic obstructive pulmonary disease, unspecified COPD type J44.9 ; Complete amputation of right foot, 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 ; Cigarette nicotine dependence without complication F17.210 and BMI 40.0-44.9, adult Z68.41 [address] [place] [address] [address] Jul, [place] [address] [address] Jul, [address] [address] [address] Jul, Onychomycosis B35.1 ; Onychocryptosis L60.0 and DM neuro manif type II E11.49 [address] [address] [address] Jun, Pain in thoracic spine M54.6 [address] [address] [address] Jun, Iron deficiency anemia due to chronic blood loss D50.0 and Hematochezia K92.1 [address] [address] [address] Jun, Gastroenteritis K52.9 and Abnormal RBC indices R71.8 [address] [place] [address] [address] Jun, [address] [place] [address] [address] Jun, Chest congestion R09.89 and Seizures R56.9 [address] [address] [address] May, Pain in thoracic spine M54.6 [facility] [address] [facility] [id number] [place] [address] May, [facility] [id number] [place] [address] May, [facility] [id number] [place] [address] May, [facility] [id number] [place] [address] May, Acute non-recurrent frontal sinusitis J01.10 and Dermatitis L30.9 [facility] [id number] [place] [address] May, [facility] [id number] [place] [address] May, Pain in thoracic spine M54.6 [facility] [id number] [place] [address] May, [facility] [id number] [place] [address] May, Acute nasopharyngitis J00 [facility] [id number] [place] [address] May, [facility] [id number] [place] [address] May, [facility] [id number] [place] [address] Apr, [facility] [id number] [place] [address] Apr, [facility] [id number] [place] [address] Apr, [facility] [id number] [place] [address] Apr, [address] [id number] [place] [address] Apr, Pain in right ankle and joints of right foot M25.571 [place] [id number] [place] [address] Apr, [address] [id number] [place] [address] Apr, Bronchitis J40 ; Pain in right ankle and joints of right foot M25.571 ; Other chronic pain G89.29 ; Prediabetes R73.03 ; Chronic obstructive pulmonary disease, unspecified COPD type J44.9 and Cigarette nicotine dependence without complication F17.210 [facility] [id number] [place] [address] 13 Apr, 2018 Seasonal allergic rhinitis, unspecified trigger J30.[address] [address] 08 Apr, 2018 Onychomycosis B35.1 ; Onychocryptosis L60.0 and DM neuro manif type II E11.49 [id number] [place] [address] Apr, Reactive depression F32.9 ; Thoracic myofascial strain, initial encounter S29.019A and Leg cramps R25.2 [address] [place] [id number] [place] [address] March, [address] [id number] [place] [address] March, Type 2 diabetes mellitus with hyperglycemia E11.65 [address] [id number] [place] [address] March, Reactive depression F32.9 [id number] [place] [address] March, Pain in thoracic spine M54.6 and Other chronic pain G89.29 [address] [place] [address] [address] Feb, [address] [address] [address] Jan, Reactive depression F32.9 ; Essential hypertension I10 ; Gastroesophageal reflux disease, esophagitis presence not specified K21.9 ; Lumbago with sciatica, left side M54.42 and Lumbago with sciatica, right side M54.41 [address] [place] [address] [address] Jan, Reactive depression F32.9 and Pharyngoesophageal dysphagia R13.14 [address] [place] [address] [address] Jan, [address] [place] [address] [address] Jan, Encounter for immunization Z23 [address] [place] [address] [address] Jan, Onychomycosis B35.1 and DM neuro manif type II E11.[address] [address] Jan, [address] [place] [address] [address] Jan, Prediabetes R73.03 [address] [place] [address] Dec, [address] [place] [address] Dec, Essential hypertension I10 ; Mixed hyperlipidemia E78.2 ; Acquired hypothyroidism E03.9 ; Reactive depression F32.9 and Prediabetes R73.03 [address] [place] [address] Dec, [address] [place] [address] [address] Dec, [facility] [address], [place] [address] Dec, DM neuro manif type II E11.49 [facility] [address], [place] [address] 08 Dec, 2017 Bruise T14.8XXA ; Type 2 diabetes mellitus with hyperglycemia E11.65 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 [facility] [id number] [place] [address] Oct, [facility] [id number] [place] [address] March, Onychomycosis B35.1 and DM neuro manif type II E11.49 [facility] [id number] [place] [address] Jun, [facility] [id number] [place] [address] Jun, [facility] [id number] [place] [address] Jun, COPD with acute exacerbation 491.21 [facility] [id number] [place] [address] Apr, [facility] [address], [place] [address] Feb, [facility] [id number], [place] [address] Feb, [facility] [id number] [place] [address] Jan, [facility] [id number] [place] [address] Jan, [facility] [address], [place] [address] Jan, [facility] [address] [facility] [id number] [place] [address] 2014 [facility] [place] [facility] [address] [id number] [place] [address] 24 Jan, 2015 [facility] [place] [facility] [address] [id number] [place] [address] 23 Jan, 2014 [facility] [place] [facility] [address] [id number] [place] [address] 23 Jan, 2014 [facility] [place] [facility] [address] [id number] [place] [address] 23 Jan, 2015 [facility] [place] [facility] [address] [id number] [place] [address] 23 Jan, 2014 [facility] [place] [facility] [address] [id number] [place] [address] 19 Jan, 2014 [facility] [place] [facility] [address] [id number] [place] [address] 19 Jan, 2014 [facility] [place] [facility] [address] [id number] [place] [address] 18 Jan, 2015 [facility] [place] [facility] [address] [id number] [place] [address] 18 Jan, 2014 [facility] [place] [facility] [address] [id number] [place] [address] 16 Jan, 2014 [facility] [place] [facility] [address] [id number] [place] [address] 16 Jan, 2014 [facility] [place] [facility] [address] [id number] [place] [address] 16 Jan, 2014 [facility] [place] [facility] [address] [id number] [place] [address] 16 Jan, 2014 [facility] [place] [facility] [address] [id number] [place] [address] 15 Jan, 2014 [facility] [place] [facility] [address] [id number] [place] [address] 13 Jan, 2015 [facility] [place] [facility] [address] [id number] [place] [address] 13 Jan, 2015 [facility] [place] [facility] [address] [id number] [place] [address] Jan, [facility] [place] [facility] [address] [id number] [place] [address] Jan, [facility] [place] [facility] [address] [id number] [place] [address] Jan, [facility] [place] [facility] [address] [id number] [place] [address] Jan, [facility] [place] [facility] [address] [id number] [place] [address] Jan, [facility] [place] [facility] [address] [facility] [id number] [place] [address] 24 Dec, 2014 [facility] [place] [facility] [address] [facility] [id number] [place] [address] Dec, 2014 [facility] [place] [facility] [address] [facility] [id number] [place] [address] Dec, 2014 [facility] [place] [facility] [address] [facility] [id number] [place] [address] Dec, 2014 [facility] [place] [facility] [address] [facility] [id number] [place] [address] Dec, 2014 [facility] [place] [facility] [address] [facility] [id number] [place] [address] Dec, 2014 [facility] [place] [facility] [address] [facility] [id number] [place] [address] Dec, 2014 [facility] [place] [facility] [address] [facility] [id number] [place] [address] Dec, 2014 [facility] [place] [facility] [address] [facility] [id number] [place] [address] 19 Dec, 2014 [facility] [place] [facility] [address] [id number] [place] [address] Dec, [facility] [place] [facility] [address] [id number] [place] [address] Dec, [facility] [place] [facility] [address] [id number] [place] [address] Dec, [facility] [place] [facility] [address] [id number] [place] [address] Nov, [facility] [place] [facility] [address] [id number] [place] [address] Nov, [facility] [place] [facility] [address] [id number] [place] [address] Nov, [facility] [place] [facility] [address] [id number] [place] [address] Nov, [facility] [place] [facility] [address] [id number] [place] [address] Nov, [facility] [place] [facility] [address] [id number] [place] [address] Nov, [facility] [place] [facility] [address] [id number] [place] [address] Nov, [facility] [place] [facility] [address] [id number] [place] [address] Nov, [facility] [place] [facility] [address] [id number] [place] [address] Nov, [facility] [place] [facility] [address] [id number] [place] [address] Nov, [facility] [place] [facility] [address] [id number] [place] [address] Nov, [facility] [place] [facility] [address] [id number] [place] [address] Nov, [facility] [place] [facility] [address] [id number] [place] [address] 31 Oct, 2014 [facility] [place] [facility] [address] [id number] [place] [address] 31 Oct, 2014 [facility] [place] [facility] [address] [id number] [place] [address] 30 Oct, 2014 [facility] [place] [facility] [address] [id number] [place] [address] 30 Oct, 2014 [facility] [place] [facility] [address] [id number] [place] [address] 29 Oct, 2014 [facility] [place] [facility] [address] [id number] [place] [address] 29 Oct, 2014 [facility] [place] [facility] [address] [id number] [place] [address] Oct, [facility] [place] [facility] [address] [id number] [place] [address] Oct, [facility] [place] [facility] [address] [id number] [place] [address] 17 Oct, 2014 [facility] [place] [facility] [address] [id number] [place] [address] 17 Oct, 2014 [facility] [place] [facility] [address] [id number] [place] [address] 16 Oct, 2014 [facility] [place] [facility] [address] [id number] [place] [address] 16 Oct, 2014 [facility] [place] [facility] [address] [id number] [place] [address] 15 Oct, 2014 [facility] [place] [facility] [address] [id number] [place] [address] 15 Oct, 2014 [facility] [place] [facility] [address] [id number] [place] [address] 08 Oct, 2014 [facility] [place] [facility] [address] [id number] [place] [address] 24 Sep, 2014 [facility] [place] [facility] [address] [id number] [place] [address] Sep, [facility] [place] [facility] [address] [id number] [place] [address] Sep, [facility] [place] [facility] [address] [id number] [place] [address] Sep, [facility] [place] [facility] [address] [id number] [place] [address] Aug, [facility] [place] [facility] [address] [id number] [place] [address] Aug, [facility] [place] [facility] [address] [id number] [place] [address] Aug, [facility] [place] [facility] [address] [id number] [place] [address] Aug, [facility] [place] [facility] [address] [id number] [place] [address] Aug, [facility] [place] [facility] [address] [id number] [place] [address] Aug, [facility] [place] [facility] [address] [id number] [place] [address] 29 Jul, 2014 [facility] [place] [facility] [address] [id number] [place] [address] 29 Jul, 2014 [facility] [place] [facility] [address] [id number] [place] [address] 15 Jul, 2014 [facility] [place] [facility] [address] [id number] [place] [address] 15 Jul, 2014 [facility] [place] [facility] [address] [id number] [place] [address] 08 Jul, 2014 [facility] [place] [facility] [address] [id number] [place] [address] 08 Jul, 2014 [facility] [place] [facility] [address] [id number] [place] [address] Jun, [facility] [place] [facility] [address] [id number] [place] [address] Jun, [facility] [place] [facility] [address] [id number] [place] [address] Jun, [facility] [place] [facility] [address] [id number] [place] [address] Jun, [facility] [place] [facility] [address] [id number] [place] [address] Jun, [facility] [place] [facility] [address] [id number] [place] [address] Jun, [facility] [place] [facility] [address] [id number] [place] [address] Jun, [facility] [place] [facility] [address] [id number] [place] [address] May, [facility] [place] [facility] [address] [id number] [place] [address] May, [facility] [place] [facility] [address] [id number] [place] [address] May, [facility] [place] [facility] [address] [id number] [place] [address] May, [facility] [place] [facility] [address] [id number] [place] [address] May, [facility] [place] [facility] [address] [id number] [place] [address] May, [facility] [place] [facility] [address] [id number] [place] [address] May, [facility] [place] [facility] [address] [id number] [place] [address] May, [facility] [place] [facility] [address] [id number] [place] [address] May, [facility] [place] [facility] [address] [id number] [place] [address] May, [facility] [place] [facility] [address] [id number] [place] [address] May, [facility] [place] [facility] [address] [id number] [place] [address] May, [facility] [place] [facility] [address] [id number] [place] [address] Apr, [facility] [place] [facility] [address] [id number] [place] [address] Apr, [facility] [place] [facility] [address] [id number] [place] [address] Apr, [facility] [place] [facility] [address] [id number] [place] [address] Apr, [facility] [place] [facility] [address] [id number] [place] [address] Apr, [facility] [place] [facility] [address] [id number] [place] [address] Apr, [facility] [place] [facility] [address] [id number] [place] [address] Apr, [facility] [place] [facility] [address] [id number] [place] [address] Apr, [facility] [place] [facility] [address] [id number] [place] [address] Apr, [facility] [place] [facility] [address] [id number] [place] [address] Apr, [facility] [place] [facility] [address] [id number] [place] [address] March, [facility] [place] [facility] [address] [id number] [place] [address] March, [facility] [place] [facility] [address] [id number] [place] [address] March, [facility] [place] [facility] [address] [id number] [place] [address] March, [facility] [place] [facility] [address] [id number] [place] [address] March, [facility] [place] [facility] [address] [id number] [place] [address] March, [facility] [place] [facility] [address] [id number] [place] [address] Feb, [facility] [place] [facility] [address] [id number] [place] [address] Feb, [facility] [place] [facility] [address] [id number] [place] [address] Feb, [facility] [place] [facility] [address] [id number] [place] [address] Feb, [facility] [place] [facility] [address] [id number] [place] [address] Feb, [facility] [place] [facility] [address] [id number] [place] [address] Feb, [facility] [place] [facility] [address] [id number] [place] [address] Feb, [facility] [place] [facility] [address] [id number] [place] [address] Feb, [facility] [place] [facility] [address] [id number] [place] [address] Feb, [facility] [place] [facility] [address] [id number] [place] [address] Feb, [facility] [place] [facility] [address] [id number] [place] [address] Jan, [facility] [place] [facility] [address] [id number] [place] [address] Jan, [facility] [place] [facility] [address] [id number] [place] [address] Jan, [facility] [place] [facility] [address] [id number] [place] [address] Jan, [facility] [place] [facility] [address] [id number] [place] [address] Jan, [facility] [facility] [address] [id number] [place] [address] Jan, [facility] [place] [facility] [address] [id number] [place] [address] Jan, [facility] [place] [facility] [address] [id number] [place] [address] Jan, [facility] [place] [facility] [address] [id number] [place] [address] Dec, [facility] [place] [facility] [address] [id number] [place] [address] Dec, [facility] [place] [facility] [address] [id number] [place] [address] Dec, [facility] [place] [facility] [address] [id number] [place] [address] Dec, [facility] [place] [facility] [address] [id number] [place] [address] Dec, [facility] [place] [facility] [address] [id number] [place] [address] Dec, [facility] [place] [facility] [address] [id number] [place] [address] Dec, [facility] [place] [facility] [address] [id number] [place] [address] Dec, [facility] [place] [facility] [address] [id number] [place] [address] Nov, [facility] [place] [facility] [address] [id number] [place] [address] Nov, [facility] [place] [facility] [address] [id number] [place] [address] Nov, [facility] [address] [id number] [place] [address] Nov, [facility] [place] [facility] [address] [id number] [place] [address] Nov, [facility] [address] [id number] [place] [address] Nov, [facility] [place] [facility] [address] [id number] [place] [address] Nov, [facility] [address] [id number] [place] [address] Nov, [facility] [address] [id number] [place] [address] Nov, [facility] [address] [id number] [place] [address] Nov, [facility] [address] [id number] [place] [address] Nov, [facility] [address] [id number] [place] [address] Oct, [facility] [address] [id number] [place] [address] Oct, [facility] [address] [id number] [place] [address] Oct, [facility] [address] [id number] [place] [address] Oct, [facility] [address] [id number] [place] [address] Sep, [facility] [address] [id number] [place] [address] Sep, [facility] [address] [id number] [place] [address] Sep, [facility] [place] [facility] [address] [id number] [place] [address] Sep, [facility] [place] [facility] [address] [id number] [place] [address] Aug, [facility] [place] [facility] [address] [id number] [place] [address] Aug, [facility] [place] [facility] [address] [id number] [place] [address] Aug, [facility] [facility] [address] [id number] [place] [address] Aug, [facility] [place] [facility] [address] [id number] [place] [address] Aug, [facility] [place] [facility] [address] [id number] [place] [address] Aug, [facility] [place] [facility] [address] [id number], [place] [address] Aug, [facility] [facility] [address] [id number] [place] [address] Aug, [facility] [facility] [address] [id number], [place] [address] 28 Jul, 2013 [facility] [address] [id number], [place] [address] 27 Jul, 2013 [facility] [address] [id number], [place] [address] 26 Jul, 2013 [facility] [address] [id number] [place] [address] 24 Jul, 2013 [facility] [address] [id number], [place] [address] 24 Jul, 2013 [facility] [address] [id number] [place] [address] 23 Jul, 2013 [facility] [address] [id number] [place] [address] 19 Jul, 2012 [facility] [address] [id number] [place] [address] 18 Sep, 2012 [facility] [address] [id number] [place] [address] 17 Jul, 2012 [facility] [address] [id number] [place] [address] 16 Jul, 2012 [facility] [address] [id number] [place] [address] 13 Jul, 2012 [facility] [address] [id number] [place] [address] 13 Jul, 2012 [facility] [address] [id number] [place] [address] 12 Jul, 2012 [facility] [address] [id number] [place] [address] 11 Jul, 2012 [facility] [address] [id number] [place] [address] 04 Jul, 2013 [facility] [address] [id number] [place] [address] 30 Jun, 2013 [facility] [address] [id number] [place] [address] Jun, [facility] [address] [id number] [place] [address] Jun, [facility] [place] [facility] [address] [id number] [place] [address] May, [facility] [address] [id number] [place] [address] May, [facility] [address] [id number] [place] [address] May, [facility] [address] [id number] [place] [address] May, [facility] [address] [id number] [place] [address] Apr, [facility] [address] [id number] [place] [address] Apr, [facility] [address] [id number] [place] [address] Apr, [facility] [address] [id number] [place] [address] Apr, [facility] [address] [id number] [place] [address] March, [facility] [address] [id number] [place] [address] March, [facility] [address] [id number] [place] [address] March, [facility] [address] [id number] [place] [address] Feb, [facility] [address] [id number] [place] [address] Feb, [facility] [address] [id number] [place] [address] Jan, [facility] [address] [id number] [place] [address] Jan, [facility] [address] [id number] [place] [address] Jan, [facility] [address] [id number] [place] [address] Jan, [facility] [address] [id number] [place] [address] Jan, [facility] [address] [id number] [place] [address] Dec, [facility] [address] [id number] [place] [address] Dec, [facility] [address] [id number] [place] [address] Dec, [facility] [address] [id number] [place] [address] Dec, [facility] [address] [id number] [place] [address] Dec, [facility] [address] [id number] [place] [address] Dec, [facility] [address] [id number] [place] [address] Dec, [facility] [address] [id number] [place] [address] Dec, [facility] [address] [id number] [place] [address] Nov, [facility] [address] [id number] [place] [address] Nov, [facility] [address] [id number] [place] [address] Nov, [facility] [address] [facility] [id number] [place] [address] Nov, [facility] [address] [id number] [place] [address] Nov, [facility] [address] [id number], [place] [address] Nov, [facility] [address] [id number] [place] [address] Nov, [facility] [address] [id number] [place] [address] Oct, [facility] [address] [id number], [place] [address] Oct, [facility] [address] [id number] [place] [address] Oct, [facility] [address] [id number] [place] [address] Oct, [facility] [address] [id number] [place] [address] Oct, [facility] [address] [id number] [place] [address] Oct, [facility] [address] [id number] [place] [address] Oct, [facility] [address] [id number] [place] [address] Oct, [facility] [address] [id number] [place] [address] Sep, [facility] [address] [id number] [place] [address] Sep, [facility] [address] [id number] [place] [address] Sep, [facility] [facility] [address] [id number] [place] [address] Sep, [facility] [address] [id number] [place] [address] Sep, [facility] [address] [id number] [place] [address] Sep, [facility] [facility] [address] [id number] [place] [address] Sep, [facility] [address] [id number] [place] [address] Sep, [facility] [facility] [address] [id number] [place] [address] Sep, [facility] [address] [id number] [place] [address] Sep, [facility] [address] [id number] [place] [address] Sep, [facility] [address] [id number] [place] [address] Sep, [facility] [address] [facility] [id number] [place] [address] Sep, [facility] [address] [id number] [place] [address] Sep, [facility] [facility] [address] [id number] [place] [address] Sep, [facility] [place] [facility] [address] [facility] [id number] [place] [address] Sep, [facility] [place] [facility] [address] [facility] [id number] [place] [address] Sep, [facility] [facility] [address] [id number], [place] [address] Sep, [facility] [address] [id number], [place] [address] Sep, [facility] [address] [facility] [id number], [place] [address] Sep, [facility] [address] [id number], [place] [address] Aug, [facility] [address] [id number], [place] [address] Aug, [facility] [address] [id number], [place] [address] Aug, [facility] [address] [facility] [id number], [place] [address] Aug, [facility] [address] [facility] [id number], [place] [address] Aug, [facility] [place] [facility] [address] [id number] [place] [address] 18 Aug, 2011 [facility] [facility] [address] [id number] [place] [address] 18 Aug, 2012 [facility] [facility] [address] [id number] [place] [address] 17 Aug, 2012 [facility] [facility] [address] [id number] [place] [address] 16 Aug, 2012 [facility] [place] [facility] [address] [id number] [place] [address] 16 Aug, 2012 [facility] [place] [facility] [address] [id number] [place] [address] 15 Aug, 2012 [facility] [place] [facility] [address] [id number] [place] [address] 09 Aug, 2012 [facility] [place] [facility] [address] [id number] [place] [address] 05 Aug, 2012 [facility] [place] [facility] [address] [id number] [place] [address] 05 Aug, 2012 [facility] [place] [facility] [address] [id number] [place] [address] 04 Aug, 2012 [facility] [place] [facility] [address] [id number] [place] [address] 14 Jul, 2012 [facility] [place] [facility] [address] [id number] [place] [address] 10 Jul, 2012 [facility] [place] [facility] [address] [id number] [place] [address] Jun, [facility] [place] [facility] [address] [id number] [place] [address] Jun, [facility] [place] [facility] [address] [id number] [place] [address] May, [facility] [place] [facility] [address] [id number] [place] [address] May, [facility] [place] [facility] [address] [id number] [place] [address] May, [facility] [place] [facility] [address] [id number] [place] [address] May, [facility] [place] [facility] [address] [id number] [place] [address] May, [facility] [place] [facility] [address] [id number] [place] [address] May, [facility] [address] [id number] [place] [address] Apr, [facility] [place] [facility] [address] [id number] [place] [address] Apr, [facility] [address] [id number] [place] [address] March, [facility] [address] [id number] [place] [address] March, [facility] [address] [id number] [place] [address] March, [facility] [address] [id number] [place] [address] March, [facility] [address] [id number] [place] [address] March, [facility] [place] [facility] [address] [id number] [place] [address] March, [facility] [place] [facility] [address] [id number] [place] [address] Feb, [facility] [place] [facility] [address] [id number] [place] [address] Feb, [facility] [place] [facility] [address] [id number] [place] [address] Feb, [facility] [place] [facility] [address] [id number] [place] [address] 25 Feb, 2012 [facility] [address] [id number] [place] [address] 23 Feb, 2012 [facility] [place] [facility] [address] [id number] [place] [address] Feb, [facility] [place] [facility] [address] [id number] [place] [address] Feb, [facility] [place] [facility] [address] [id number] [place] [address] Feb, [facility] [place] [facility] [address] [id number] [place] [address] Feb, [facility] [place] [facility] [address] [id number] [place] [address] 30 Jan, 2012 [facility] [place] [facility] [address] [id number] [place] [address] 27 Jan, 2012 [facility] [place] [facility] [address] [id number] [place] [address] Jan, [facility] [place] [facility] [address] [id number] [place] [address] 22 Jan, 2012 [facility] [place] [facility] [address] [id number] [place] [address] Jan, [facility] [place] [facility] [address] [id number] [place] [address] Jan, [facility] [place] [facility] [address] [id number] [place] [address] 14 Jan, 2012 [facility] [place] [facility] [address] [id number] [place] [address] 09 Jan, 2012 [facility] [place] [facility] [address] [id number] [place] [address] 09 Jan, 2012 [facility] [place] [facility] [address] [id number] [place] [address] 08 Jan, 2012 [facility] [place] [facility] [address] [id number] [place] [address] 07 Jan, 2012 [facility] [place] [facility] [address] [id number] [place] [address] Jan, [facility] [place] [facility] [address] [id number] [place] [address] Jan, [facility] [place] [facility] [address] [id number] [place] [address] Jan, [facility] [place] [facility] [address] [id number] [place] [address] Dec, [facility] [place] [facility] [address] [id number] [place] [address] Dec, [facility] [place] [facility] [address] [facility] [id number] [place] [address] Dec, [facility] [place] [facility] [address] [id number] [place] [address] Dec, [facility] [place] [facility] [address] [id number] [place] [address] 16 Dec, 2011 [facility] [place] [facility] [address] [facility] [id number] [place] [address] Dec, [facility] [place] [facility] [address] [facility] [id number] [place] [address] Dec, [facility] [place] [facility] [address] [id number], [place] [address] Dec, [facility] [place] [facility] [address] [id number] [place] [address] Dec, [facility] [place] [facility] [address] [id number] [place] [address] Nov, [facility] [place] [facility] [address] [id number] [place] [address] Nov, [facility] [place] [facility] [address] [id number], [place] [address] Nov, [facility] [address] [id number] [place] [address] Nov, [facility] [place] [facility] [address] [id number] [place] [address] Oct, [facility] [place] [facility] [address] [id number] [place] [address] Oct, [facility] [place] [facility] [address] [id number] [place] [address] Oct, [facility] [place] [facility] [address] [id number] [place] [address] Oct, [facility] [place] [facility] [address] [id number] [place] [address] Oct, [facility] [place] [facility] [address] [facility] [id number] [place] [address] Oct, [facility] [place] [facility] [address] [id number] [place] [address] Oct, [facility] [place] [facility] [address] [id number] [place] [address] Sep, [facility] [place] [facility] [address] [facility] [id number] [place] [address] Sep, [facility] [place] [facility] [address] [id number] [place] [address] Sep, [facility] [place] [facility] [address] [id number] [place] [address] Sep, [facility] [place] [facility] [address] [id number] [place] [address] Sep, [facility] [place] [facility] [address] [facility] [id number] [place] [address] Sep, [facility] [place] [facility] [address] [facility] [id number] [place] [address] Sep, [facility] [place] [facility] [address] [id number] [place] [address] Sep, [facility] [place] [facility] [address] [id number] [place] [address] Sep, [facility] [place] [facility] [address] [id number] [place] [address] Aug, [facility] [place] [facility] [address] [id number] [place] [address] Aug, [facility] [place] [facility] [address] [id number] [place] [address] Aug, [facility] [place] [facility] [address] [id number] [place] [address] May, [facility] [place] [facility] [address] [id number] [place] [address] Nov, [facility] [place] [facility] [address] [id number] [place] [address] Oct, [facility] [place] [facility] [address] [id number] [place] [address] Oct, [facility] [place] [facility] [address] [id number] [place] [address] Oct, [facility] [place] [facility] [address] [facility] [id number] [place] [address] Oct, [facility] [place] [facility] [address] [id number] [place] [address] Oct, [facility] [place] [facility] [address] [id number] [place] [address] Sep, [facility] [place] [facility] [address] [id number] [place] [address] Sep, [facility] [place] [facility] [address] [id number] [place] [address] 14 Jul, 2010 [facility] [place] [facility] [address] [id number] [place] [address] Oct, [facility] [address] [facility] [id number], [place] [address] Oct, [facility] [address] [facility] [id number], [place] [address] Oct, [facility] [address] [facility] [id number], [place] [address] Oct, [facility] [address] [facility] [id number], [place] [address] Sep, [facility] [address] [facility] [id number], [place] [address] Sep, [facility] [address] [facility] [id number], [place] [address] Sep, [facility] [id number], [place] [address] Sep, [facility] [id number], [place] [address] Sep, [facility] [address] [facility] [id number], [place] [address] Jul, [facility] [id number], [place] [address] Apr, [facility] [address] [id number], [place] [address] Dec, IMMUNIZATIONS No Known Immunizations SOCIAL HISTORY Never Assessed REASON FOR VISIT [facility] PLAN OF CARE VITAL SIGNS MEDICATIONS [...]
--- OUTSIDE RECORDS SUMMARY | 2019-06-14 11:23 | XMS REPORT ---
Author Author Migration, Doctor Organization [facility] Address Unknown Phone Unavailable Care Team Providers Care Maintenance Of Way Foreman Name Role Phone Migration, Doctor Unavailable Unavailable PROBLEMS Type Condition ICD9-CM Code BRP30-PL Code Onset Dates Condition Status SNOMED Code Problem Essential hypertension I10 Active 03176430 Problem Prediabetes R73.03 Active 685978113 Problem Reactive depression F32.9 Active 37643781 Problem Acquired hypothyroidism E03.9 Active 527679274 Problem Gastroesophageal reflux disease, esophagitis presence not specified K21.9 Active 951680155 Problem Mixed hyperlipidemia E78.2 Active 786099643 Problem Other chronic pain G89.29 Active 45475605 Problem Chronic obstructive pulmonary disease, unspecified COPD type J44.9 Active 22002772 Problem Cigarette nicotine dependence without complication F17.210 Active 60149290 Problem Sinusitis J32.9 Active 41540024 Problem Lumbago with sciatica, right side M54.41 Active [id number] Problem Chronic pain G89.29 Active 76455301 Problem Lumbago with sciatica, left side M54.42 Active 313305222 Problem DM neuro manif type II E11.49 Active 65317658 Problem Seizures R56.9 Active 13902281 Problem Iron deficiency anemia due to chronic blood loss D50.0 Active 621875814 Problem Seasonal allergies J30.2 Active 992211016 ALLERGIES No Information ENCOUNTERS Encounter Location Date Diagnosis [facility] [id number], [place] [address] Feb, [facility] [id number] [place] [address] Feb, [facility] [id number] [place] [address] Jan, [facility] [address], [place] [address] Jan, Acute cystitis with hematuria N30.01 and Dysuria R30.0 [facility] [id number], [place] [address] Jan, [facility] [address] [facility] [id number] [address] Dec, [facility] [address], [place] [address] Dec, [facility] [address], [place] [address] Dec, [facility] [address], [place] [address] Dec, [facility] [address], [place] [address] Dec, Routine adult health maintenance Z00.00 ; Chronic obstructive pulmonary disease, unspecified COPD type J44.9 and Encounter for immunization Z23 [facility] [address], [place] [address] Nov, [facility] [address], [place] [address] Nov, UTI (urinary tract infection) N39.0 and Other chronic pain G89.29 [facility] [address], [place] [address] Nov, [facility] [id number], [place] [address] Nov, [facility] [id number], [place] [address] Nov, Painful urination R30.9 and UTI (urinary tract infection) N39.0 [facility] [id number], [place] [address] Nov, [facility] [id number], [place] [address] Nov, UTI (urinary tract infection) N39.0 [place] [address] [place] [address] Nov, Dysuria R30.0 ; UTI (urinary tract infection) N39.0 and Chronic pain G89.29 [place] [address] [place] [address] Nov, [place] [address] [address] Oct, Cough R05 [place] [id number] [place] [address] Oct, Sinusitis J32.9 [facility] [id number] [place] [address] Oct, [facility] [id number] [place] [address] Oct, UTI (urinary tract infection) N39.0 and URI (upper respiratory infection) J06.9 [place] [id number] [place] [address] Sep, Pain in thoracic spine M54.6 [facility] [id number] [place] [address] 09 Sep, 2018 Type 2 diabetes mellitus with hyperglycemia E11.65 [place] [id number] [place] [address] Sep, Chronic obstructive pulmonary disease, unspecified COPD type J44.9 ; Abrasion of right ear canal, initial encounter S00.411A ; Cigarette nicotine dependence without complication F17.210 ; Right leg pain M79.604 and Seasonal allergies J30.2 [place] [id number] [place] [address] Aug, [place] [id number] [place] [address] Aug, [place] [address] [place] [address] Aug, Pain in thoracic spine M54.6 [place] [address] [address] Aug, [place] [address] [address] Aug, Chronic obstructive pulmonary disease, unspecified COPD type J44.9 ; Complete amputation of right foot, 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 ; Cigarette nicotine dependence without complication F17.210 and BMI 40.0-44.9, adult Z68.41 [place] [address] [address] Jul, [place] [address] [address] Jul, [place] [address] [address] Jul, Onychomycosis B35.1 ; Onychocryptosis L60.0 and DM neuro manif type II E11.49 [place] [address] [address] Jun, Pain in thoracic spine M54.6 [place] [address] [address] Jun, Iron deficiency anemia due to chronic blood loss D50.0 and Hematochezia K92.1 [place] [address] [address] Jun, Gastroenteritis K52.9 and Abnormal RBC indices R71.8 [place] [address] [address] Jun, [place] [address] [address] Jun, Chest congestion R09.89 and Seizures R56.9 [place] [address] [address] May, Pain in thoracic spine M54.6 [facility] [address] [facility] [id number] [place] [address] May, [facility] [id number] [place] [address] May, [facility] [id number] [place] [address] May, [facility] [id number] [place] [address] May, Acute non-recurrent frontal sinusitis J01.10 and Dermatitis L30.9 [facility] [id number] [place] [address] May, [facility] [id number] [place] [address] May, Pain in thoracic spine M54.6 [facility] [id number] [place] [address] May, [facility] [id number] [place] [address] May, Acute nasopharyngitis J00 [facility] [id number] [place] [address] May, [facility] [id number] [place] [address] May, [facility] [id number] [place] [address] Apr, [facility] [id number] [place] [address] Apr, [facility] [id number] [place] [address] Apr, [facility] [id number] [place] [address] Apr, [place] [id number] [place] [address] Apr, Pain in right ankle and joints of right foot M25.571 [place] [id number] [place] [address] Apr, [place] [id number] [place] [address] Apr, Bronchitis J40 ; Pain in right ankle and joints of right foot M25.571 ; Other chronic pain G89.29 ; Prediabetes R73.03 ; Chronic obstructive pulmonary disease, unspecified COPD type J44.9 and Cigarette nicotine dependence without complication F17.210 [facility] [id number] [place] [address] 13 Apr, 2018 Seasonal allergic rhinitis, unspecified trigger J30.[address] [address] 08 Apr, 2018 Onychomycosis B35.1 ; Onychocryptosis L60.0 and DM neuro manif type II E11.49 [place] [id number] [place] [address] Apr, Reactive depression F32.9 ; Thoracic myofascial strain, initial encounter S29.019A and Leg cramps R25.2 [place] [id number] [place] [address] March, [place] [id number] [place] [address] March, Type 2 diabetes mellitus with hyperglycemia E11.65 [place] [id number] [place] [address] March, Reactive depression F32.9 [address] [id number] [place] [address] March, Pain in thoracic spine M54.6 and Other chronic pain G89.29 [place] [address] [address] Feb, [place] [address] [address] Jan, Reactive depression F32.9 ; Essential hypertension I10 ; Gastroesophageal reflux disease, esophagitis presence not specified K21.9 ; Lumbago with sciatica, left side M54.42 and Lumbago with sciatica, right side M54.41 [place] [address] [address] Jan, Reactive depression F32.9 and Pharyngoesophageal dysphagia R13.14 [place] [address] [address] Jan, [place] [address] [address] Jan, Encounter for immunization Z23 [place] [address] [address] Jan, Onychomycosis B35.1 and DM neuro manif type II E11.[address] [address] Jan, [place] [address] [address] Jan, Prediabetes R73.03 [place] [address] [address] Dec, [place] [address] [address] Dec, Essential hypertension I10 ; Mixed hyperlipidemia E78.2 ; Acquired hypothyroidism E03.9 ; Reactive depression F32.9 and Prediabetes R73.03 [place] [address] [address] Dec, [place] [address] [address] Dec, [facility] [address], [place] [address] Dec, DM neuro manif type II E11.49 [facility] [address], [place] [address] 08 Dec, 2017 Bruise T14.8XXA ; Type 2 diabetes mellitus with hyperglycemia E11.65 and 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 [facility] [id number] [place] [address] Oct, [facility] [id number] [place] [address] March, Onychomycosis B35.1 and DM neuro manif type II E11.49 [facility] [id number] [place] [address] Jun, [facility] [id number] [place] [address] Jun, [facility] [id number] [place] [address] Jun, COPD with acute exacerbation 491.21 [facility] [id number] [place] [address] Apr, [facility] [address], [place] [address] Feb, [facility] [address], [place] [address] Feb, [facility] [id number] [place] [address] Jan, [facility] [id number] [place] [address] Jan, [facility] [address], [place] [address] Jan, [facility] [address] [facility] [id number] [place] [address] 2014 [facility] [place] [facility] [address] [id number] [place] [address] 24 Jan, 2015 [facility] [place] [facility] [address] [id number] [place] [address] 23 Jan, 2014 [facility] [place] [facility] [address] [id number] [place] [address] 23 Jan, 2014 [facility] [place] [facility] [address] [id number] [place] [address] 23 Jan, 2015 [facility] [place] [facility] [address] [id number] [place] [address] 23 Jan, 2014 [facility] [place] [facility] [address] [id number] [place] [address] 19 Jan, 2014 [facility] [place] [facility] [address] [id number] [place] [address] 19 Jan, 2014 [facility] [place] [facility] [address] [id number] [place] [address] 18 Jan, 2015 [facility] [place] [facility] [address] [id number] [place] [address] 18 Jan, 2014 [facility] [place] [facility] [address] [id number] [place] [address] 16 Jan, 2014 [facility] [place] [facility] [address] [id number] [place] [address] 16 Jan, 2014 [facility] [place] [facility] [address] [id number] [place] [address] 16 Jan, 2014 [facility] [place] [facility] [address] [id number] [place] [address] 16 Jan, 2014 [facility] [place] [facility] [address] [id number] [place] [address] 15 Jan, 2014 [facility] [place] [facility] [address] [id number] [place] [address] 13 Jan, 2015 [facility] [place] [facility] [address] [id number] [place] [address] 13 Jan, 2015 [facility] [place] [facility] [address] [id number] [place] [address] Jan, [facility] [place] [facility] [address] [id number] [place] [address] Jan, [facility] [place] [facility] [address] [id number] [place] [address] Jan, [facility] [place] [facility] [address] [id number] [place] [address] Jan, [facility] [place] [facility] [address] [id number] [place] [address] Jan, [facility] [place] [facility] [address] [facility] [id number] [place] [address] 24 Dec, 2014 [facility] [place] [facility] [address] [facility] [id number] [place] [address] Dec, 2014 [facility] [place] [facility] [address] [facility] [id number] [place] [address] Dec, 2014 [facility] [place] [facility] [address] [facility] [id number] [place] [address] Dec, 2014 [facility] [place] [facility] [address] [facility] [id number] [place] [address] Dec, 2014 [facility] [place] [facility] [address] [facility] [id number] [place] [address] Dec, 2014 [facility] [place] [facility] [address] [facility] [id number] [place] [address] Dec, 2014 [facility] [place] [facility] [address] [facility] [id number] [place] [address] Dec, 2014 [facility] [place] [facility] [address] [facility] [id number] [place] [address] 19 Dec, 2014 [facility] [place] [facility] [address] [id number] [place] [address] Dec, [facility] [place] [facility] [address] [id number] [place] [address] Dec, [facility] [place] [facility] [address] [id number] [place] [address] Dec, [facility] [place] [facility] [address] [id number] [place] [address] Nov, [facility] [place] [facility] [address] [id number] [place] [address] Nov, [facility] [place] [facility] [address] [id number] [place] [address] Nov, [facility] [place] [facility] [address] [id number] [place] [address] Nov, [facility] [place] [facility] [address] [id number] [place] [address] Nov, [facility] [place] [facility] [address] [id number] [place] [address] Nov, [facility] [place] [facility] [address] [id number] [place] [address] Nov, [facility] [place] [facility] [address] [id number] [place] [address] Nov, [facility] [place] [facility] [address] [id number] [place] [address] Nov, [facility] [place] [facility] [address] [id number] [place] [address] Nov, [facility] [place] [facility] [address] [id number] [place] [address] Nov, [facility] [place] [facility] [address] [id number] [place] [address] Nov, [facility] [place] [facility] [address] [id number] [place] [address] 31 Oct, 2014 [facility] [place] [facility] [address] [id number] [place] [address] 31 Oct, 2014 [facility] [place] [facility] [address] [id number] [place] [address] 30 Oct, 2014 [facility] [place] [facility] [address] [id number] [place] [address] 30 Oct, 2014 [facility] [place] [facility] [address] [id number] [place] [address] 29 Oct, 2014 [facility] [place] [facility] [address] [id number] [place] [address] 29 Oct, 2014 [facility] [place] [facility] [address] [id number] [place] [address] Oct, [facility] [place] [facility] [address] [id number] [place] [address] Oct, [facility] [place] [facility] [address] [id number] [place] [address] 17 Oct, 2014 [facility] [place] [facility] [address] [id number] [place] [address] 17 Oct, 2014 [facility] [place] [facility] [address] [id number] [place] [address] 16 Oct, 2014 [facility] [place] [facility] [address] [id number] [place] [address] 16 Oct, 2014 [facility] [place] [facility] [address] [id number] [place] [address] 15 Oct, 2014 [facility] [place] [facility] [address] [id number] [place] [address] 15 Oct, 2014 [facility] [place] [facility] [address] [id number] [place] [address] 08 Oct, 2014 [facility] [place] [facility] [address] [id number] [place] [address] 24 Sep, 2014 [facility] [place] [facility] [address] [id number] [place] [address] Sep, [facility] [place] [facility] [address] [id number] [place] [address] Sep, [facility] [place] [facility] [address] [id number] [place] [address] Sep, [facility] [place] [facility] [address] [id number] [place] [address] Aug, [facility] [place] [facility] [address] [id number] [place] [address] Aug, [facility] [place] [facility] [address] [id number] [place] [address] Aug, [facility] [place] [facility] [address] [id number] [place] [address] Aug, [facility] [place] [facility] [address] [id number] [place] [address] Aug, [facility] [place] [facility] [address] [id number] [place] [address] Aug, [facility] [place] [facility] [address] [id number] [place] [address] 29 Jul, 2014 [facility] [place] [facility] [address] [id number] [place] [address] 29 Jul, 2014 [facility] [place] [facility] [address] [id number] [place] [address] 15 Jul, 2014 [facility] [place] [facility] [address] [id number] [place] [address] 15 Jul, 2014 [facility] [place] [facility] [address] [id number] [place] [address] 08 Jul, 2014 [facility] [place] [facility] [address] [id number] [place] [address] 08 Jul, 2014 [facility] [place] [facility] [address] [id number] [place] [address] Jun, [facility] [place] [facility] [address] [id number] [place] [address] Jun, [facility] [place] [facility] [address] [id number] [place] [address] Jun, [facility] [place] [facility] [address] [id number] [place] [address] Jun, [facility] [place] [facility] [address] [id number] [place] [address] Jun, [facility] [place] [facility] [address] [id number] [place] [address] Jun, [facility] [place] [facility] [address] [id number] [place] [address] Jun, [facility] [place] [facility] [address] [id number] [place] [address] May, [facility] [place] [facility] [address] [id number] [place] [address] May, [facility] [place] [facility] [address] [id number] [place] [address] May, [facility] [place] [facility] [address] [id number] [place] [address] May, [facility] [place] [facility] [address] [id number] [place] [address] May, [facility] [place] [facility] [address] [id number] [place] [address] May, [facility] [place] [facility] [address] [id number] [place] [address] May, [facility] [place] [facility] [address] [id number] [place] [address] May, [facility] [place] [facility] [address] [id number] [place] [address] May, [facility] [place] [facility] [address] [id number] [place] [address] May, [facility] [place] [facility] [address] [id number] [place] [address] May, [facility] [place] [facility] [address] [id number] [place] [address] May, [facility] [place] [facility] [address] [id number] [place] [address] Apr, [facility] [place] [facility] [address] [id number] [place] [address] Apr, [facility] [place] [facility] [address] [id number] [place] [address] Apr, [facility] [place] [facility] [address] [id number] [place] [address] Apr, [facility] [place] [facility] [address] [id number] [place] [address] Apr, [facility] [place] [facility] [address] [id number] [place] [address] Apr, [facility] [place] [facility] [address] [id number] [place] [address] Apr, [facility] [place] [facility] [address] [id number] [place] [address] Apr, [facility] [place] [facility] [address] [id number] [place] [address] Apr, [facility] [place] [facility] [address] [id number] [place] [address] Apr, [facility] [place] [facility] [address] [id number] [place] [address] March, [facility] [place] [facility] [address] [id number] [place] [address] March, [facility] [place] [facility] [address] [id number] [place] [address] March, [facility] [place] [facility] [address] [id number] [place] [address] March, [facility] [place] [facility] [address] [id number] [place] [address] March, [facility] [place] [facility] [address] [id number] [place] [address] March, [facility] [place] [facility] [address] [id number] [place] [address] Feb, [facility] [place] [facility] [address] [id number] [place] [address] Feb, [facility] [place] [facility] [address] [id number] [place] [address] Feb, [facility] [place] [facility] [address] [id number] [place] [address] Feb, [facility] [place] [facility] [address] [id number] [place] [address] Feb, [facility] [place] [facility] [address] [id number] [place] [address] Feb, [facility] [place] [facility] [address] [id number] [place] [address] Feb, [facility] [place] [facility] [address] [id number] [place] [address] Feb, [facility] [place] [facility] [address] [id number] [place] [address] Feb, [facility] [place] [facility] [address] [id number] [place] [address] Feb, [facility] [place] [facility] [address] [id number] [place] [address] Jan, [facility] [place] [facility] [address] [id number] [place] [address] Jan, [facility] [place] [facility] [address] [id number] [place] [address] Jan, [facility] [place] [facility] [address] [id number] [place] [address] Jan, [facility] [place] [facility] [address] [id number] [place] [address] Jan, [facility] [place] [facility] [address] [id number] [place] [address] Jan, [facility] [place] [facility] [address] [id number] [place] [address] Jan, [facility] [place] [facility] [address] [id number] [place] [address] Jan, [facility] [place] [facility] [address] [address] [id number] [place] [address] Dec, [facility] [place] [facility] [address] [id number] [place] [address] Dec, [facility] [place] [facility] [address] [id number] [place] [address] Dec, [facility] [place] [facility] [address] [id number] [place] [address] Dec, [facility] [place] [facility] [address] [id number] [place] [address] Dec, [facility] [place] [facility] [address] [id number] [place] [address] Dec, [facility] [place] [facility] [address] [id number] [place] [address] Dec, [facility] [place] [facility] [address] [id number] [place] [address] Dec, [facility] [place] [facility] [address] [id number] [place] [address] Nov, [facility] [place] [facility] [address] [id number] [place] [address] Nov, [facility] [place] [facility] [address] [id number] [place] [address] Nov, [facility] [address] [id number] [place] [address] Nov, [facility] [place] [facility] [address] [id number] [place] [address] Nov, [facility] [address] [id number] [place] [address] Nov, [facility] [place] [facility] [address] [id number] [place] [address] Nov, [facility] [place] [facility] [address] [id number] [place] [address] Nov, [facility] [place] [facility] [address] [id number] [place] [address] Nov, [facility] [place] [facility] [address] [id number] [place] [address] Nov, [facility] [address] [id number] [place] [address] Nov, [facility] [place] [facility] [address] [id number] [place] [address] Oct, [facility] [address] [id number] [place] [address] Oct, [facility] [place] [facility] [address] [id number] [place] [address] Oct, [facility] [place] [facility] [address] [id number] [place] [address] Oct, [facility] [place] [facility] [address] [id number] [place] [address] Sep, [facility] [place] [facility] [address] [id number] [place] [address] Sep, [facility] [place] [facility] [address] [id number] [place] [address] Sep, [facility] [place] [facility] [address] [id number] [place] [address] Sep, [facility] [place] [facility] [address] [id number] [place] [address] Aug, [facility] [place] [facility] [address] [id number] [place] [address] Aug, [facility] [place] [facility] [address] [id number] [place] [address] Aug, [facility] [place] [facility] [address] [id number] [place] [address] Aug, [facility] [place] [facility] [address] [id number] [place] [address] Aug, [facility] [place] [facility] [address] [id number] [place] [address] Aug, [facility] [place] [facility] [address] [id number], [place] [address] Aug, [facility] [place] [facility] [address] [id number] [place] [address] Aug, [facility] [place] [facility] [address] [id number], [place] [address] 28 Jul, 2013 [facility] [place] [facility] [address] [id number], [place] [address] 27 Jul, 2013 [facility] [place] [facility] [address] [id number], [place] [address] 26 Jul, 2013 [facility] [place] [facility] [address] [id number] [place] [address] 24 Jul, 2013 [facility] [place] [facility] [address] [id number], [place] [address] 24 Jul, 2013 [facility] [place] [facility] [address] [id number] [place] [address] 23 Jul, 2013 [facility] [place] [facility] [address] [id number] [place] [address] 19 Jul, 2012 [facility] [place] [facility] [address] [id number] [place] [address] 18 Sep, 2012 [facility] [place] [facility] [address] [id number] [place] [address] 17 Jul, 2012 [facility] [place] [facility] [address] [id number] [place] [address] 16 Jul, 2012 [facility] [place] [facility] [address] [id number] [place] [address] 13 Jul, 2012 [facility] [place] [facility] [address] [id number] [place] [address] 13 Jul, 2012 [facility] [place] [facility] [address] [id number] [place] [address] 12 Jul, 2012 [facility] [place] [facility] [address] [id number] [place] [address] 11 Jul, 2012 [facility] [place] [facility] [address] [id number] [place] [address] 04 Jul, 2013 [facility] [place] [facility] [address] [id number] [place] [address] 30 Jun, 2013 [facility] [place] [facility] [address] [id number] [place] [address] Jun, [facility] [place] [facility] [address] [id number] [place] [address] Jun, [facility] [place] [facility] [address] [id number] [place] [address] May, [facility] [place] [facility] [address] [id number] [place] [address] May, [facility] [place] [facility] [address] [id number] [place] [address] May, [facility] [place] [facility] [address] [id number] [place] [address] May, [facility] [place] [facility] [address] [id number] [place] [address] Apr, [facility] [address] [id number] [place] [address] Apr, [facility] [place] [facility] [address] [id number] [place] [address] Apr, [facility] [place] [facility] [address] [id number] [place] [address] Apr, [facility] [address] [id number] [place] [address] March, [facility] [place] [facility] [address] [id number] [place] [address] March, [facility] [address] [id number] [place] [address] March, [facility] [address] [id number] [place] [address] Feb, [facility] [address] [id number] [place] [address] Feb, [facility] [address] [id number] [place] [address] Jan, [facility] [place] [facility] [address] [id number] [place] [address] Jan, [facility] [place] [facility] [address] [id number] [place] [address] Jan, [facility] [place] [facility] [address] [id number] [place] [address] Jan, [facility] [place] [facility] [address] [id number] [place] [address] Jan, [facility] [place] [facility] [address] [id number] [place] [address] Dec, [facility] [place] [facility] [address] [id number] [place] [address] Dec, [facility] [address] [id number] [place] [address] Dec, [facility] [address] [id number] [place] [address] Dec, [facility] [address] [id number] [place] [address] Dec, [facility] [address] [id number] [place] [address] Dec, [facility] [address] [id number] [place] [address] Dec, [facility] [address] [id number] [place] [address] Dec, [facility] [address] [id number] [place] [address] Nov, [facility] [address] [id number] [place] [address] Nov, [facility] [address] [id number] [place] [address] Nov, [facility] [address] [facility] [id number] [place] [address] Nov, [facility] [address] [id number] [place] [address] Nov, [facility] [address] [id number], [place] [address] Nov, [facility] [address] [id number] [place] [address] Nov, [facility] [address] [id number] [place] [address] Oct, [facility] [address] [id number], [place] [address] Oct, [facility] [place] [facility] [address] [id number] [place] [address] Oct, [facility] [place] [facility] [address] [id number] [place] [address] Oct, [facility] [place] [facility] [address] [id number] [place] [address] Oct, [facility] [place] [facility] [address] [id number] [place] [address] Oct, [facility] [place] [facility] [address] [id number] [place] [address] Oct, [facility] [place] [facility] [address] [id number] [place] [address] Oct, [facility] [place] [facility] [address] [id number] [place] [address] Sep, [facility] [place] [facility] [address] [id number] [place] [address] Sep, [facility] [place] [facility] [address] [id number] [place] [address] Sep, [facility] [place] [facility] [address] [id number] [place] [address] Sep, [facility] [place] [facility] [address] [id number] [place] [address] Sep, [facility] [place] [facility] [address] [id number] [place] [address] Sep, [facility] [place] [facility] [address] [id number] [place] [address] Sep, [facility] [place] [facility] [address] [id number] [place] [address] Sep, [facility] [place] [facility] [address] [id number] [place] [address] Sep, [facility] [place] [facility] [address] [id number] [place] [address] Sep, [facility] [place] [facility] [address] [id number] [place] [address] Sep, [facility] [place] [facility] [address] [id number] [place] [address] Sep, [facility] [place] [facility] [address] [facility] [id number] [place] [address] Sep, [facility] [place] [facility] [address] [id number] [place] [address] Sep, [facility] [place] [facility] [address] [id number] [place] [address] Sep, [facility] [place] [facility] [address] [facility] [id number] [place] [address] Sep, [facility] [place] [facility] [address] [facility] [id number] [place] [address] Sep, [facility] [place] [facility] [address] [id number], [place] [address] Sep, [facility] [place] [facility] [address] [id number], [place] [address] Sep, [facility] [place] [facility] [address] [facility] [id number], [place] [address] Sep, [facility] [place] [facility] [address] [id number], [place] [address] Aug, [facility] [place] [facility] [address] [id number], [place] [address] Aug, [facility] [place] [facility] [address] [id number], [place] [address] Aug, [facility] [place] [facility] [address] [facility] [id number], [place] [address] Aug, [facility] [place] [facility] [address] [facility] [id number], [place] [address] Aug, [facility] [place] [facility] [address] [id number] [place] [address] 18 Aug, 2011 [facility] [place] [facility] [address] [id number] [place] [address] 18 Aug, 2012 [facility] [place] [facility] [address] [id number] [place] [address] 17 Aug, 2012 [facility] [place] [facility] [address] [id number] [place] [address] 16 Aug, 2012 [facility] [place] [facility] [address] [id number] [place] [address] 16 Aug, 2012 [facility] [place] [facility] [address] [id number] [place] [address] 15 Aug, 2012 [facility] [place] [facility] [address] [id number] [place] [address] 09 Aug, 2012 [facility] [place] [facility] [address] [id number] [place] [address] 05 Aug, 2012 [facility] [place] [facility] [address] [id number] [place] [address] 05 Aug, 2012 [facility] [place] [facility] [address] [id number] [place] [address] 04 Aug, 2012 [facility] [place] [facility] [address] [id number] [place] [address] 14 Jul, 2012 [facility] [place] [facility] [address] [id number] [place] [address] 10 Jul, 2012 [facility] [place] [facility] [address] [id number] [place] [address] Jun, [facility] [place] [facility] [address] [id number] [place] [address] Jun, [facility] [place] [facility] [address] [id number] [place] [address] May, [facility] [place] [facility] [address] [id number] [place] [address] May, [facility] [place] [facility] [address] [id number] [place] [address] May, [facility] [place] [facility] [address] [id number] [place] [address] May, [facility] [place] [facility] [address] [id number] [place] [address] May, [facility] [place] [facility] [address] [id number] [place] [address] May, [facility] [address] [id number] [place] [address] Apr, [facility] [place] [facility] [address] [id number] [place] [address] Apr, [facility] [address] [id number] [place] [address] March, [facility] [address] [id number] [place] [address] March, [facility] [address] [id number] [place] [address] March, [facility] [address] [id number] [place] [address] March, [facility] [place] [facility] [address] [id number] [place] [address] March, [facility] [place] [facility] [address] [id number] [place] [address] March, [facility] [place] [facility] [address] [id number] [place] [address] Feb, [facility] [place] [facility] [address] [id number] [place] [address] Feb, [facility] [place] [facility] [address] [id number] [place] [address] Feb, [facility] [place] [facility] [address] [id number] [place] [address] 25 Feb, 2012 [facility] [address] [id number] [place] [address] 23 Feb, 2012 [facility] [place] [facility] [address] [id number] [place] [address] Feb, [facility] [place] [facility] [address] [id number] [place] [address] Feb, [facility] [place] [facility] [address] [id number] [place] [address] Feb, [facility] [place] [facility] [address] [id number] [place] [address] Feb, [facility] [place] [facility] [address] [id number] [place] [address] 30 Jan, 2012 [facility] [place] [facility] [address] [id number] [place] [address] 27 Jan, 2012 [facility] [place] [facility] [address] [id number] [place] [address] Jan, [facility] [place] [facility] [address] [id number] [place] [address] 22 Jan, 2012 [facility] [place] [facility] [address] [id number] [place] [address] Jan, [facility] [place] [facility] [address] [id number] [place] [address] Jan, [facility] [place] [facility] [address] [id number] [place] [address] 14 Jan, 2012 [facility] [place] [facility] [address] [id number] [place] [address] 09 Jan, 2012 [facility] [place] [facility] [address] [id number] [place] [address] 09 Jan, 2012 [facility] [place] [facility] [address] [id number] [place] [address] 08 Jan, 2012 [facility] [place] [facility] [address] [id number] [place] [address] 07 Jan, 2012 [facility] [place] [facility] [address] [id number] [place] [address] Jan, [facility] [place] [facility] [address] [id number] [place] [address] Jan, [facility] [place] [facility] [address] [id number] [place] [address] Jan, [facility] [place] [facility] [address] [id number] [place] [address] Dec, [facility] [place] [facility] [address] [id number] [place] [address] Dec, [facility] [place] [facility] [address] [facility] [id number] [place] [address] Dec, [facility] [place] [facility] [address] [id number] [place] [address] Dec, [facility] [place] [facility] [address] [id number] [place] [address] 16 Dec, 2011 [facility] [place] [facility] [address] [facility] [id number] [place] [address] Dec, [facility] [place] [facility] [address] [facility] [id number] [place] [address] Dec, [facility] [place] [facility] [address] [id number], [place] [address] Dec, [facility] [place] [facility] [address] [id number] [place] [address] Dec, [facility] [place] [facility] [address] [id number] [place] [address] Nov, [facility] [place] [facility] [address] [id number] [place] [address] Nov, [facility] [place] [facility] [address] [id number], [place] [address] Nov, [facility] [address] [id number] [place] [address] Nov, [facility] [place] [facility] [address] [id number] [place] [address] Oct, [facility] [place] [facility] [address] [id number] [place] [address] Oct, [facility] [place] [facility] [address] [id number] [place] [address] Oct, [facility] [place] [facility] [address] [id number] [place] [address] Oct, [facility] [place] [facility] [address] [id number] [place] [address] Oct, [facility] [place] [facility] [address] [facility] [id number] [place] [address] Oct, [facility] [place] [facility] [address] [id number] [place] [address] Oct, [facility] [place] [facility] [address] [id number] [place] [address] Sep, [facility] [place] [facility] [address] [facility] [id number] [place] [address] Sep, [facility] [place] [facility] [address] [id number] [place] [address] Sep, [facility] [place] [facility] [address] [id number] [place] [address] Sep, [facility] [place] [facility] [address] [id number] [place] [address] Sep, [facility] [place] [facility] [address] [facility] [id number] [place] [address] Sep, [facility] [place] [facility] [address] [facility] [id number] [place] [address] Sep, [facility] [place] [facility] [address] [id number] [place] [address] Sep, [facility] [place] [facility] [address] [id number] [place] [address] Sep, [facility] [place] [facility] [address] [id number] [place] [address] Aug, [facility] [place] [facility] [address] [id number] [place] [address] Aug, [facility] [place] [facility] [address] [id number] [place] [address] Aug, [facility] [place] [facility] [address] [id number] [place] [address] May, [facility] [place] [facility] [address] [id number] [place] [address] Nov, [facility] [place] [facility] [address] [id number] [place] [address] Oct, [facility] [place] [facility] [address] [id number] [place] [address] Oct, [facility] [place] [facility] [address] [id number] [place] [address] Oct, [facility] [place] [facility] [address] [facility] [id number] [place] [address] Oct, [facility] [place] [facility] [address] [id number] [place] [address] Oct, [facility] [place] [facility] [address] [id number] [place] [address] Sep, [facility] [place] [facility] [address] [id number] [place] [address] Sep, [facility] [place] [facility] [address] [id number] [place] [address] 14 Jul, 2010 [facility] [place] [facility] [address] [id number] [place] [address] Oct, [facility] [address] [facility] [id number], [place] [address] Oct, [facility] [address] [facility] [id number], [place] [address] Oct, [facility] [address] [facility] [id number], [place] [address] Oct, [facility] [address] [facility] [id number], [place] [address] Sep, [facility] [address] [facility] [id number], [place] [address] Sep, [facility] [address] [facility] [id number], [place] [address] Sep, [facility] [id number], [place] [address] Sep, [facility] [id number], [place] [address] Sep, [facility] [address] [facility] [id number], [place] [address] Jul, [facility] [id number], [place] [address] Apr, [facility] [address] [id number], [place] [address] Dec, IMMUNIZATIONS No Known Immunizations SOCIAL HISTORY Never Assessed REASON FOR VISIT [facility] PLAN OF CARE VITAL SIGNS MEDICATIONS [...]
--- OUTSIDE RECORDS SUMMARY | 2019-06-14 11:24 | XMS REPORT ---
Author Author Migration, Doctor Organization [facility] Address Unknown Phone Unavailable Care Team Providers Care Collar Baster Jumpbasting Name Role Phone Migration, Doctor Unavailable Unavailable PROBLEMS Type Condition ICD9-CM Code EYW01-GH Code Onset Dates Condition Status SNOMED Code Problem Essential hypertension I10 Active 68499694 Problem Prediabetes R73.03 Active 828894284 Problem Reactive depression F32.9 Active 19054557 Problem Acquired hypothyroidism E03.9 Active 284291165 Problem Gastroesophageal reflux disease, esophagitis presence not specified K21.9 Active 568193244 Problem Mixed hyperlipidemia E78.2 Active 930779364 Problem Other chronic pain G89.29 Active 83117680 Problem Chronic obstructive pulmonary disease, unspecified COPD type J44.9 Active 64023414 Problem Cigarette nicotine dependence without complication F17.210 Active 94008710 Problem Sinusitis J32.9 Active 97158431 Problem Lumbago with sciatica, right side M54.41 Active [id number] Problem Chronic pain G89.29 Active 68214076 Problem Lumbago with sciatica, left side M54.42 Active 064891384 Problem DM neuro manif type II E11.49 Active 32051162 Problem Seizures R56.9 Active 04800095 Problem Iron deficiency anemia due to chronic blood loss D50.0 Active 135965360 Problem Seasonal allergies J30.2 Active 669134820 ALLERGIES No Information ENCOUNTERS Encounter Location Date Diagnosis [facility] [id number] [address] Feb, [facility] [id number] [place] [address] Feb, [facility] [id number] [place] [address] Jan, [facility] [address], [place] [address] Jan, Acute cystitis with hematuria N30.01 and Dysuria R30.0 [facility] [id number], [place] [address] Jan, [facility] [address] [facility] [id number] [address] Dec, [facility] [address], [place] [address] Dec, [facility] [address], [place] [address] Dec, [facility] [address], [place] [address] Dec, [facility] [address] [address] Dec, Routine adult health maintenance Z00.00 ; Chronic obstructive pulmonary disease, unspecified COPD type J44.9 and Encounter for immunization Z23 [facility] [address], [place] [address] Nov, [facility] [address] [address] Nov, UTI (urinary tract infection) N39.0 and Other chronic pain G89.29 [facility] [address], [place] [address] Nov, [facility] [id number] [address] Nov, [facility] [id number] [address] Nov, Painful urination R30.9 and UTI (urinary tract infection) N39.0 [facility] [id number] [address] Nov, [facility] [id number], [place] [address] Nov, UTI (urinary tract infection) N39.0 [place] [id number] [place] [address] Nov, Dysuria R30.0 ; UTI (urinary tract infection) N39.0 and Chronic pain G89.29 [place] [id number] [place] [address] Nov, [place] [address] [address] Oct, Cough R05 [place] [id number] [place] [address] Oct, Sinusitis J32.9 [place] [id number] [place] [address] Oct, [place] [id number] [place] [address] Oct, UTI (urinary tract infection) N39.0 and URI (upper respiratory infection) J06.9 [place] [id number] [place] [address] Sep, Pain in thoracic spine M54.6 [place] [id number] [place] [address] 09 Sep, 2018 Type 2 diabetes mellitus with hyperglycemia E11.65 [place] [id number] [place] [address] Sep, Chronic obstructive pulmonary disease, unspecified COPD type J44.9 ; Abrasion of right ear canal, initial encounter S00.411A ; Cigarette nicotine dependence without complication F17.210 ; Right leg pain M79.604 and Seasonal allergies J30.2 [place] [id number] [place] [address] Aug, [place] [id number] [place] [address] Aug, [address] [address] [place] [address] Aug, Pain in thoracic spine M54.6 [place] [address] [address] Aug, [place] [address] [address] Aug, Chronic obstructive pulmonary disease, unspecified COPD type J44.9 ; Complete amputation of right foot, 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 ; Cigarette nicotine dependence without complication F17.210 and BMI 40.0-44.9, adult Z68.41 [place] [address] [address] Jul, [place] [address] [address] Jul, [place] [address] [address] Jul, Onychomycosis B35.1 ; Onychocryptosis L60.0 and DM neuro manif type II E11.49 [place] [address] [address] Jun, Pain in thoracic spine M54.6 [place] [address] [address] Jun, Iron deficiency anemia due to chronic blood loss D50.0 and Hematochezia K92.1 [place] [address] [address] Jun, Gastroenteritis K52.9 and Abnormal RBC indices R71.8 [place] [address] [address] Jun, [place] [address] [address] Jun, Chest congestion R09.89 and Seizures R56.9 [place] [address] [address] May, Pain in thoracic spine M54.6 [facility] [address] [facility] [id number] [place] [address] May, [facility] [id number] [place] [address] May, [facility] [id number] [place] [address] May, [facility] [id number] [place] [address] May, Acute non-recurrent frontal sinusitis J01.10 and Dermatitis L30.9 [facility] [id number] [place] [address] May, [facility] [id number] [place] [address] May, Pain in thoracic spine M54.6 [facility] [id number] [place] [address] May, [facility] [id number] [place] [address] May, Acute nasopharyngitis J00 [facility] [id number] [place] [address] May, [facility] [id number] [place] [address] May, [facility] [id number] [place] [address] Apr, [facility] [id number] [place] [address] Apr, [facility] [id number] [place] [address] Apr, [facility] [id number] [place] [address] Apr, [place] [id number] [place] [address] Apr, Pain in right ankle and joints of right foot M25.571 [place] [id number] [place] [address] Apr, [place] [id number] [place] [address] Apr, Bronchitis J40 ; Pain in right ankle and joints of right foot M25.571 ; Other chronic pain G89.29 ; Prediabetes R73.03 ; Chronic obstructive pulmonary disease, unspecified COPD type J44.9 and Cigarette nicotine dependence without complication F17.210 [facility] [id number] [place] [address] 13 Apr, 2018 Seasonal allergic rhinitis, unspecified trigger J30.[address] [address] 08 Apr, 2018 Onychomycosis B35.1 ; Onychocryptosis L60.0 and DM neuro manif type II E11.49 [id number] [place] [address] Apr, Reactive depression F32.9 ; Thoracic myofascial strain, initial encounter S29.019A and Leg cramps R25.2 [place] [id number] [place] [address] March, [place] [id number] [place] [address] March, Type 2 diabetes mellitus with hyperglycemia E11.65 [address] [id number] [place] [address] March, Reactive depression F32.9 [address] [id number] [place] [address] March, Pain in thoracic spine M54.6 and Other chronic pain G89.29 [address] [address] [address] Feb, [address] [address] [address] Jan, Reactive depression F32.9 ; Essential hypertension I10 ; Gastroesophageal reflux disease, esophagitis presence not specified K21.9 ; Lumbago with sciatica, left side M54.42 and Lumbago with sciatica, right side M54.41 [address] [place] [address] [address] Jan, Reactive depression F32.9 and Pharyngoesophageal dysphagia R13.14 [address] [address] [address] Jan, [address] [address] [address] Jan, Encounter for immunization Z23 [address] [address] [address] Jan, Onychomycosis B35.1 and DM neuro manif type II E11.[address] [address] Jan, [address] [address] [address] Jan, Prediabetes R73.03 [address] [address] [address] Dec, [address] [address] [address] Dec, Essential hypertension I10 ; Mixed hyperlipidemia E78.2 ; Acquired hypothyroidism E03.9 ; Reactive depression F32.9 and Prediabetes R73.03 [address] [address] [address] Dec, [address] [address] [address] Dec, [facility] [address], [place] [address] Dec, DM neuro manif type II E11.49 [facility] [address], [place] [address] 08 Dec, 2017 Bruise T14.8XXA ; Type 2 diabetes mellitus with hyperglycemia E11.65 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 [facility] [id number] [place] [address] Oct, [facility] [id number] [place] [address] March, Onychomycosis B35.1 and DM neuro manif type II E11.49 [facility] [id number] [place] [address] Jun, [facility] [id number] [place] [address] Jun, [facility] [id number] [place] [address] Jun, COPD with acute exacerbation 491.21 [facility] [id number] [place] [address] Apr, [facility] [address], [place] [address] Feb, [facility] [id number], [place] [address] Feb, [facility] [id number] [place] [address] Jan, [facility] [id number] [place] [address] Jan, [facility] [address], [place] [address] Jan, [facility] [address] [facility] [id number] [place] [address] 2014 [facility] [place] [facility] [address] [id number] [place] [address] 24 Jan, 2015 [facility] [place] [facility] [address] [id number] [place] [address] 23 Jan, 2014 [facility] [place] [facility] [address] [id number] [place] [address] 23 Jan, 2014 [facility] [place] [facility] [address] [id number] [place] [address] 23 Jan, 2015 [facility] [place] [facility] [address] [id number] [place] [address] 23 Jan, 2014 [facility] [place] [facility] [address] [id number] [place] [address] 19 Jan, 2014 [facility] [place] [facility] [address] [id number] [place] [address] 19 Jan, 2014 [facility] [place] [facility] [address] [id number] [place] [address] 18 Jan, 2015 [facility] [place] [facility] [address] [id number] [place] [address] 18 Jan, 2014 [facility] [place] [facility] [address] [id number] [place] [address] 16 Jan, 2014 [facility] [place] [facility] [address] [id number] [place] [address] 16 Jan, 2014 [facility] [place] [facility] [address] [id number] [place] [address] 16 Jan, 2014 [facility] [place] [facility] [address] [id number] [place] [address] 16 Jan, 2014 [facility] [place] [facility] [address] [id number] [place] [address] 15 Jan, 2014 [facility] [place] [facility] [address] [id number] [place] [address] 13 Jan, 2015 [facility] [place] [facility] [address] [id number] [place] [address] 13 Jan, 2015 [facility] [place] [facility] [address] [id number] [place] [address] Jan, [facility] [place] [facility] [address] [id number] [place] [address] Jan, [facility] [place] [facility] [address] [id number] [place] [address] Jan, [facility] [place] [facility] [address] [id number] [place] [address] Jan, [facility] [place] [facility] [address] [id number] [place] [address] Jan, [facility] [place] [facility] [address] [facility] [id number] [place] [address] 24 Dec, 2014 [facility] [place] [facility] [address] [facility] [id number] [place] [address] Dec, 2014 [facility] [place] [facility] [address] [facility] [id number] [place] [address] Dec, 2014 [facility] [place] [facility] [address] [facility] [id number] [place] [address] Dec, 2014 [facility] [place] [facility] [address] [facility] [id number] [place] [address] Dec, 2014 [facility] [place] [facility] [address] [facility] [id number] [place] [address] Dec, 2014 [facility] [place] [facility] [address] [facility] [id number] [place] [address] Dec, 2014 [facility] [place] [facility] [address] [facility] [id number] [place] [address] Dec, 2014 [facility] [place] [facility] [address] [facility] [id number] [place] [address] 19 Dec, 2014 [facility] [place] [facility] [address] [id number] [place] [address] Dec, [facility] [place] [facility] [address] [id number] [place] [address] Dec, [facility] [place] [facility] [address] [id number] [place] [address] Dec, [facility] [place] [facility] [address] [id number] [place] [address] Nov, [facility] [place] [facility] [address] [id number] [place] [address] Nov, [facility] [place] [facility] [address] [id number] [place] [address] Nov, [facility] [place] [facility] [address] [id number] [place] [address] Nov, [facility] [place] [facility] [address] [id number] [place] [address] Nov, [facility] [place] [facility] [address] [id number] [place] [address] Nov, [facility] [place] [facility] [address] [id number] [place] [address] Nov, [facility] [place] [facility] [address] [id number] [place] [address] Nov, [facility] [place] [facility] [address] [id number] [place] [address] Nov, [facility] [place] [facility] [address] [id number] [place] [address] Nov, [facility] [place] [facility] [address] [id number] [place] [address] Nov, [facility] [place] [facility] [address] [id number] [place] [address] Nov, [facility] [place] [facility] [address] [id number] [place] [address] 31 Oct, 2014 [facility] [place] [facility] [address] [id number] [place] [address] 31 Oct, 2014 [facility] [place] [facility] [address] [id number] [place] [address] 30 Oct, 2014 [facility] [place] [facility] [address] [id number] [place] [address] 30 Oct, 2014 [facility] [place] [facility] [address] [id number] [place] [address] 29 Oct, 2014 [facility] [place] [facility] [address] [id number] [place] [address] 29 Oct, 2014 [facility] [place] [facility] [address] [id number] [place] [address] Oct, [facility] [place] [facility] [address] [id number] [place] [address] Oct, [facility] [place] [facility] [address] [id number] [place] [address] 17 Oct, 2014 [facility] [place] [facility] [address] [id number] [place] [address] 17 Oct, 2014 [facility] [place] [facility] [address] [id number] [place] [address] 16 Oct, 2014 [facility] [place] [facility] [address] [id number] [place] [address] 16 Oct, 2014 [facility] [place] [facility] [address] [id number] [place] [address] 15 Oct, 2014 [facility] [place] [facility] [address] [id number] [place] [address] 15 Oct, 2014 [facility] [place] [facility] [address] [id number] [place] [address] 08 Oct, 2014 [facility] [place] [facility] [address] [id number] [place] [address] 24 Sep, 2014 [facility] [place] [facility] [address] [id number] [place] [address] Sep, [facility] [place] [facility] [address] [id number] [place] [address] Sep, [facility] [place] [facility] [address] [id number] [place] [address] Sep, [facility] [place] [facility] [address] [id number] [place] [address] Aug, [facility] [place] [facility] [address] [id number] [place] [address] Aug, [facility] [place] [facility] [address] [id number] [place] [address] Aug, [facility] [place] [facility] [address] [id number] [place] [address] Aug, [facility] [place] [facility] [address] [id number] [place] [address] Aug, [facility] [place] [facility] [address] [id number] [place] [address] Aug, [facility] [place] [facility] [address] [id number] [place] [address] 29 Jul, 2014 [facility] [place] [facility] [address] [id number] [place] [address] 29 Jul, 2014 [facility] [place] [facility] [address] [id number] [place] [address] 15 Jul, 2014 [facility] [place] [facility] [address] [id number] [place] [address] 15 Jul, 2014 [facility] [place] [facility] [address] [id number] [place] [address] 08 Jul, 2014 [facility] [place] [facility] [address] [id number] [place] [address] 08 Jul, 2014 [facility] [place] [facility] [address] [id number] [place] [address] Jun, [facility] [place] [facility] [address] [id number] [place] [address] Jun, [facility] [place] [facility] [address] [id number] [place] [address] Jun, [facility] [place] [facility] [address] [id number] [place] [address] Jun, [facility] [place] [facility] [address] [id number] [place] [address] Jun, [facility] [place] [facility] [address] [id number] [place] [address] Jun, [facility] [place] [facility] [address] [id number] [place] [address] Jun, [facility] [place] [facility] [address] [id number] [place] [address] May, [facility] [place] [facility] [address] [id number] [place] [address] May, [facility] [place] [facility] [address] [id number] [place] [address] May, [facility] [place] [facility] [address] [id number] [place] [address] May, [facility] [place] [facility] [address] [id number] [place] [address] May, [facility] [place] [facility] [address] [id number] [place] [address] May, [facility] [place] [facility] [address] [id number] [place] [address] May, [facility] [place] [facility] [address] [id number] [place] [address] May, [facility] [place] [facility] [address] [id number] [place] [address] May, [facility] [place] [facility] [address] [id number] [place] [address] May, [facility] [place] [facility] [address] [id number] [place] [address] May, [facility] [place] [facility] [address] [id number] [place] [address] May, [facility] [place] [facility] [address] [id number] [place] [address] Apr, [facility] [place] [facility] [address] [id number] [place] [address] Apr, [facility] [place] [facility] [address] [id number] [place] [address] Apr, [facility] [place] [facility] [address] [id number] [place] [address] Apr, [facility] [place] [facility] [address] [id number] [place] [address] Apr, [facility] [place] [facility] [address] [id number] [place] [address] Apr, [facility] [place] [facility] [address] [id number] [place] [address] Apr, [facility] [place] [facility] [address] [id number] [place] [address] Apr, [facility] [place] [facility] [address] [id number] [place] [address] Apr, [facility] [place] [facility] [address] [id number] [place] [address] Apr, [facility] [place] [facility] [address] [id number] [place] [address] March, [facility] [place] [facility] [address] [id number] [place] [address] March, [facility] [place] [facility] [address] [id number] [place] [address] March, [facility] [place] [facility] [address] [id number] [place] [address] March, [facility] [place] [facility] [address] [id number] [place] [address] March, [facility] [place] [facility] [address] [id number] [place] [address] March, [facility] [place] [facility] [address] [id number] [place] [address] Feb, [facility] [place] [facility] [address] [id number] [place] [address] Feb, [facility] [place] [facility] [address] [id number] [place] [address] Feb, [facility] [place] [facility] [address] [id number] [place] [address] Feb, [facility] [place] [facility] [address] [id number] [place] [address] Feb, [facility] [place] [facility] [address] [id number] [place] [address] Feb, [facility] [place] [facility] [address] [id number] [place] [address] Feb, [facility] [place] [facility] [address] [id number] [place] [address] Feb, [facility] [place] [facility] [address] [id number] [place] [address] Feb, [facility] [place] [facility] [address] [id number] [place] [address] Feb, [facility] [place] [facility] [address] [id number] [place] [address] Jan, [facility] [place] [facility] [address] [id number] [place] [address] Jan, [facility] [place] [facility] [address] [id number] [place] [address] Jan, [facility] [place] [facility] [address] [id number] [place] [address] Jan, [facility] [place] [facility] [address] [id number] [place] [address] Jan, [facility] [place] [facility] [address] [id number] [place] [address] Jan, [facility] [place] [facility] [address] [id number] [place] [address] Jan, [facility] [place] [facility] [address] [id number] [place] [address] Jan, [facility] [place] [facility] [address] [id number] [place] [address] Dec, [facility] [place] [facility] [address] [id number] [place] [address] Dec, [facility] [place] [facility] [address] [id number] [place] [address] Dec, [facility] [place] [facility] [address] [id number] [place] [address] Dec, [facility] [place] [facility] [address] [id number] [place] [address] Dec, [facility] [place] [facility] [address] [id number] [place] [address] Dec, [facility] [place] [facility] [address] [id number] [place] [address] Dec, [facility] [place] [facility] [address] [id number] [place] [address] Dec, [facility] [place] [facility] [address] [id number] [place] [address] Nov, [facility] [place] [facility] [address] [id number] [place] [address] Nov, [facility] [place] [facility] [address] [id number] [place] [address] Nov, [facility] [address] [id number] [place] [address] Nov, [facility] [place] [facility] [address] [id number] [place] [address] Nov, [facility] [address] [id number] [place] [address] Nov, [facility] [place] [facility] [address] [id number] [place] [address] Nov, [facility] [place] [facility] [address] [id number] [place] [address] Nov, [facility] [place] [facility] [address] [id number] [place] [address] Nov, [facility] [place] [facility] [address] [id number] [place] [address] Nov, [facility] [address] [id number] [place] [address] Nov, [facility] [place] [facility] [address] [id number] [place] [address] Oct, [facility] [address] [id number] [place] [address] Oct, [facility] [place] [facility] [address] [id number] [place] [address] Oct, [facility] [place] [facility] [address] [id number] [place] [address] Oct, [facility] [place] [facility] [address] [id number] [place] [address] Sep, [facility] [place] [facility] [address] [id number] [place] [address] Sep, [facility] [place] [facility] [address] [id number] [place] [address] Sep, [facility] [place] [facility] [address] [id number] [place] [address] Sep, [facility] [place] [facility] [address] [id number] [place] [address] Aug, [facility] [place] [facility] [address] [id number] [place] [address] Aug, [facility] [place] [facility] [address] [id number] [place] [address] Aug, [facility] [place] [facility] [address] [id number] [place] [address] Aug, [facility] [place] [facility] [address] [id number] [place] [address] Aug, [facility] [place] [facility] [address] [id number] [place] [address] Aug, [facility] [place] [facility] [address] [id number], [place] [address] Aug, [facility] [place] [facility] [address] [id number] [place] [address] Aug, [facility] [place] [facility] [address] [id number], [place] [address] 28 Jul, 2013 [facility] [place] [facility] [address] [id number], [place] [address] 27 Jul, 2013 [facility] [place] [facility] [address] [id number], [place] [address] 26 Jul, 2013 [facility] [place] [facility] [address] [id number] [place] [address] 24 Jul, 2013 [facility] [place] [facility] [address] [id number], [place] [address] 24 Jul, 2013 [facility] [place] [facility] [address] [id number] [place] [address] 23 Jul, 2013 [facility] [place] [facility] [address] [id number] [place] [address] 19 Jul, 2012 [facility] [place] [facility] [address] [id number] [place] [address] 18 Sep, 2012 [facility] [place] [facility] [address] [id number] [place] [address] 17 Jul, 2012 [facility] [place] [facility] [address] [id number] [place] [address] 16 Jul, 2012 [facility] [place] [facility] [address] [id number] [place] [address] 13 Jul, 2012 [facility] [place] [facility] [address] [id number] [place] [address] 13 Jul, 2012 [facility] [place] [facility] [address] [id number] [place] [address] 12 Jul, 2012 [facility] [place] [facility] [address] [id number] [place] [address] 11 Jul, 2012 [facility] [place] [facility] [address] [id number] [place] [address] 04 Jul, 2013 [facility] [place] [facility] [address] [id number] [place] [address] 30 Jun, 2013 [facility] [place] [facility] [address] [id number] [place] [address] Jun, [facility] [place] [facility] [address] [id number] [place] [address] Jun, [facility] [place] [facility] [address] [id number] [place] [address] May, [facility] [place] [facility] [address] [id number] [place] [address] May, [facility] [place] [facility] [address] [id number] [place] [address] May, [facility] [place] [facility] [address] [id number] [place] [address] May, [facility] [place] [facility] [address] [id number] [place] [address] Apr, [facility] [address] [id number] [place] [address] Apr, [facility] [place] [facility] [address] [id number] [place] [address] Apr, [facility] [place] [facility] [address] [id number] [place] [address] Apr, [facility] [address] [id number] [place] [address] March, [facility] [place] [facility] [address] [id number] [place] [address] March, [facility] [address] [id number] [place] [address] March, [facility] [address] [id number] [place] [address] Feb, [facility] [address] [id number] [place] [address] Feb, [facility] [address] [id number] [place] [address] Jan, [facility] [place] [facility] [address] [id number] [place] [address] Jan, [facility] [place] [facility] [address] [id number] [place] [address] Jan, [facility] [place] [facility] [address] [id number] [place] [address] Jan, [facility] [place] [facility] [address] [id number] [place] [address] Jan, [facility] [place] [facility] [address] [id number] [place] [address] Dec, [facility] [place] [facility] [address] [id number] [place] [address] Dec, [facility] [address] [id number] [place] [address] Dec, [facility] [address] [id number] [place] [address] Dec, [facility] [address] [id number] [place] [address] Dec, [facility] [address] [id number] [place] [address] Dec, [facility] [address] [id number] [place] [address] Dec, [facility] [address] [id number] [place] [address] Dec, [facility] [address] [id number] [place] [address] Nov, [facility] [address] [id number] [place] [address] Nov, [facility] [address] [id number] [place] [address] Nov, [facility] [address] [facility] [id number] [place] [address] Nov, [facility] [address] [id number] [place] [address] Nov, [facility] [address] [id number], [place] [address] Nov, [facility] [address] [id number] [place] [address] Nov, [facility] [address] [id number] [place] [address] Oct, [facility] [address] [id number], [place] [address] Oct, [facility] [place] [facility] [address] [id number] [place] [address] Oct, [facility] [place] [facility] [address] [id number] [place] [address] Oct, [facility] [place] [facility] [address] [id number] [place] [address] Oct, [facility] [place] [facility] [address] [id number] [place] [address] Oct, [facility] [place] [facility] [address] [id number] [place] [address] Oct, [facility] [place] [facility] [address] [id number] [place] [address] Oct, [facility] [place] [facility] [address] [id number] [place] [address] Sep, [facility] [place] [facility] [address] [id number] [place] [address] Sep, [facility] [place] [facility] [address] [id number] [place] [address] Sep, [facility] [place] [facility] [address] [id number] [place] [address] Sep, [facility] [place] [facility] [address] [id number] [place] [address] Sep, [facility] [place] [facility] [address] [id number] [place] [address] Sep, [facility] [place] [facility] [address] [id number] [place] [address] Sep, [facility] [place] [facility] [address] [id number] [place] [address] Sep, [facility] [place] [facility] [address] [id number] [place] [address] Sep, [facility] [place] [facility] [address] [id number] [place] [address] Sep, [facility] [place] [facility] [address] [id number] [place] [address] Sep, [facility] [place] [facility] [address] [id number] [place] [address] Sep, [facility] [place] [facility] [address] [facility] [id number] [place] [address] Sep, [facility] [place] [facility] [address] [id number] [place] [address] Sep, [facility] [place] [facility] [address] [id number] [place] [address] Sep, [facility] [place] [facility] [address] [facility] [id number] [place] [address] Sep, [facility] [place] [facility] [address] [facility] [id number] [place] [address] Sep, [facility] [place] [facility] [address] [id number], [place] [address] Sep, [facility] [place] [facility] [address] [id number], [place] [address] Sep, [facility] [place] [facility] [address] [facility] [id number], [place] [address] Sep, [facility] [place] [facility] [address] [id number], [place] [address] Aug, [facility] [place] [facility] [address] [id number], [place] [address] Aug, [facility] [place] [facility] [address] [id number], [place] [address] Aug, [facility] [place] [facility] [address] [facility] [id number], [place] [address] Aug, [facility] [place] [facility] [address] [facility] [id number], [place] [address] Aug, [facility] [place] [facility] [address] [id number] [place] [address] 18 Aug, 2011 [facility] [place] [facility] [address] [id number] [place] [address] 18 Aug, 2012 [facility] [place] [facility] [address] [id number] [place] [address] 17 Aug, 2012 [facility] [place] [facility] [address] [id number] [place] [address] 16 Aug, 2012 [facility] [place] [facility] [address] [id number] [place] [address] 16 Aug, 2012 [facility] [place] [facility] [address] [id number] [place] [address] 15 Aug, 2012 [facility] [place] [facility] [address] [id number] [place] [address] 09 Aug, 2012 [facility] [place] [facility] [address] [id number] [place] [address] 05 Aug, 2012 [facility] [place] [facility] [address] [id number] [place] [address] 05 Aug, 2012 [facility] [place] [facility] [address] [id number] [place] [address] 04 Aug, 2012 [facility] [place] [facility] [address] [id number] [place] [address] 14 Jul, 2012 [facility] [place] [facility] [address] [id number] [place] [address] 10 Jul, 2012 [facility] [place] [facility] [address] [id number] [place] [address] Jun, [facility] [place] [facility] [address] [id number] [place] [address] Jun, [facility] [place] [facility] [address] [id number] [place] [address] May, [facility] [place] [facility] [address] [id number] [place] [address] May, [facility] [place] [facility] [address] [id number] [place] [address] May, [facility] [place] [facility] [address] [id number] [place] [address] May, [facility] [place] [facility] [address] [id number] [place] [address] May, [facility] [place] [facility] [address] [id number] [place] [address] May, [facility] [address] [id number] [place] [address] Apr, [facility] [place] [facility] [address] [id number] [place] [address] Apr, [facility] [address] [id number] [place] [address] March, [facility] [address] [id number] [place] [address] March, [facility] [address] [id number] [place] [address] March, [facility] [address] [id number] [place] [address] March, [facility] [place] [facility] [address] [id number] [place] [address] March, [facility] [place] [facility] [address] [id number] [place] [address] March, [facility] [place] [facility] [address] [id number] [place] [address] Feb, [facility] [place] [facility] [address] [id number] [place] [address] Feb, [facility] [place] [facility] [address] [id number] [place] [address] Feb, [facility] [place] [facility] [address] [id number] [place] [address] 25 Feb, 2012 [facility] [address] [id number] [place] [address] 23 Feb, 2012 [facility] [place] [facility] [address] [id number] [place] [address] Feb, [facility] [place] [facility] [address] [id number] [place] [address] Feb, [facility] [place] [facility] [address] [id number] [place] [address] Feb, [facility] [place] [facility] [address] [id number] [place] [address] Feb, [facility] [place] [facility] [address] [id number] [place] [address] 30 Jan, 2012 [facility] [place] [facility] [address] [id number] [place] [address] 27 Jan, 2012 [facility] [place] [facility] [address] [id number] [place] [address] Jan, [facility] [place] [facility] [address] [id number] [place] [address] 22 Jan, 2012 [facility] [place] [facility] [address] [id number] [place] [address] Jan, [facility] [place] [facility] [address] [id number] [place] [address] Jan, [facility] [place] [facility] [address] [id number] [place] [address] 14 Jan, 2012 [facility] [place] [facility] [address] [id number] [place] [address] 09 Jan, 2012 [facility] [place] [facility] [address] [id number] [place] [address] 09 Jan, 2012 [facility] [place] [facility] [address] [id number] [place] [address] 08 Jan, 2012 [facility] [place] [facility] [address] [id number] [place] [address] 07 Jan, 2012 [facility] [place] [facility] [address] [id number] [place] [address] Jan, [facility] [place] [facility] [address] [id number] [place] [address] Jan, [facility] [place] [facility] [address] [id number] [place] [address] Jan, [facility] [place] [facility] [address] [id number] [place] [address] Dec, [facility] [place] [facility] [address] [id number] [place] [address] Dec, [facility] [place] [facility] [address] [facility] [id number] [place] [address] Dec, [facility] [place] [facility] [address] [id number] [place] [address] Dec, [facility] [place] [facility] [address] [id number] [place] [address] 16 Dec, 2011 [facility] [place] [facility] [address] [facility] [id number] [place] [address] Dec, [facility] [place] [facility] [address] [facility] [id number] [place] [address] Dec, [facility] [place] [facility] [address] [id number], [place] [address] Dec, [facility] [place] [facility] [address] [id number] [place] [address] Dec, [facility] [place] [facility] [address] [id number] [place] [address] Nov, [facility] [place] [facility] [address] [id number] [place] [address] Nov, [facility] [place] [facility] [address] [id number], [place] [address] Nov, [facility] [address] [id number] [place] [address] Nov, [facility] [place] [facility] [address] [id number] [place] [address] Oct, [facility] [place] [facility] [address] [id number] [place] [address] Oct, [facility] [place] [facility] [address] [id number] [place] [address] Oct, [facility] [place] [facility] [address] [id number] [place] [address] Oct, [facility] [place] [facility] [address] [id number] [place] [address] Oct, [facility] [place] [facility] [address] [facility] [id number] [place] [address] Oct, [facility] [place] [facility] [address] [id number] [place] [address] Oct, [facility] [place] [facility] [address] [id number] [place] [address] Sep, [facility] [place] [facility] [address] [facility] [id number] [place] [address] Sep, [facility] [place] [facility] [address] [id number] [place] [address] Sep, [facility] [place] [facility] [address] [id number] [place] [address] Sep, [facility] [place] [facility] [address] [id number] [place] [address] Sep, [facility] [place] [facility] [address] [facility] [id number] [place] [address] Sep, [facility] [place] [facility] [address] [facility] [id number] [place] [address] Sep, [facility] [place] [facility] [address] [id number] [place] [address] Sep, [facility] [place] [facility] [address] [id number] [place] [address] Sep, [facility] [place] [facility] [address] [id number] [place] [address] Aug, [facility] [place] [facility] [address] [id number] [place] [address] Aug, [facility] [place] [facility] [address] [id number] [place] [address] Aug, [facility] [place] [facility] [address] [id number] [place] [address] May, [facility] [place] [facility] [address] [id number] [place] [address] Nov, [facility] [place] [facility] [address] [id number] [place] [address] Oct, [facility] [place] [facility] [address] [id number] [place] [address] Oct, [facility] [place] [facility] [address] [id number] [place] [address] Oct, [facility] [place] [facility] [address] [facility] [id number] [place] [address] Oct, [facility] [place] [facility] [address] [id number] [place] [address] Oct, [facility] [place] [facility] [address] [id number] [place] [address] Sep, [facility] [place] [facility] [address] [id number] [place] [address] Sep, [facility] [place] [facility] [address] [id number] [place] [address] 14 Jul, 2010 [facility] [place] [facility] [address] [id number] [place] [address] Oct, [facility] [address] [facility] [id number], [place] [address] Oct, [facility] [address] [facility] [id number], [place] [address] Oct, [facility] [address] [facility] [id number], [place] [address] Oct, [facility] [address] [facility] [id number], [place] [address] Sep, [facility] [address] [facility] [id number], [place] [address] Sep, [facility] [address] [facility] [id number], [place] [address] Sep, [facility] [id number], [place] [address] Sep, [facility] [id number], [place] [address] Sep, [facility] [address] [facility] [id number], [place] [address] Jul, [facility] [id number], [place] [address] Apr, [facility] [address] [id number], [place] [address] Dec, IMMUNIZATIONS No Known Immunizations SOCIAL HISTORY Never Assessed REASON FOR VISIT [facility] PLAN OF CARE VITAL SIGNS MEDICATIONS [...]
--- OUTSIDE RECORDS SUMMARY | 2019-06-14 11:25 | XMS REPORT ---
Author Author Migration, Doctor Organization [facility] Address Unknown Phone Unavailable Care Team Providers Care Veterinary Surgeon Name Role Phone Migration, Doctor Unavailable Unavailable PROBLEMS Type Condition ICD9-CM Code UJM51-OG Code Onset Dates Condition Status SNOMED Code Problem Essential hypertension I10 Active 99348452 Problem Prediabetes R73.03 Active 479341961 Problem Reactive depression F32.9 Active 77433069 Problem Acquired hypothyroidism E03.9 Active 516602802 Problem Gastroesophageal reflux disease, esophagitis presence not specified K21.9 Active 511531917 Problem Mixed hyperlipidemia E78.2 Active 791144141 Problem Other chronic pain G89.29 Active 83550149 Problem Chronic obstructive pulmonary disease, unspecified COPD type J44.9 Active 12778040 Problem Cigarette nicotine dependence without complication F17.210 Active 27335587 Problem Sinusitis J32.9 Active 39350698 Problem Lumbago with sciatica, right side M54.41 Active [id number] Problem Chronic pain G89.29 Active 65383797 Problem Lumbago with sciatica, left side M54.42 Active 712097417 Problem DM neuro manif type II E11.49 Active 66250603 Problem Seizures R56.9 Active 60092204 Problem Iron deficiency anemia due to chronic blood loss D50.0 Active 255278162 Problem Seasonal allergies J30.2 Active 783196283 ALLERGIES No Information ENCOUNTERS Encounter Location Date Diagnosis [facility] [id number], [place] [address] Feb, [facility] [id number] [place] [address] Feb, [facility] [id number] [place] [address] Jan, [facility] [id number], [place] [address] Jan, Acute cystitis with hematuria N30.01 and Dysuria R30.0 [facility] [id number], [place] [address] Jan, [facility] [address] [facility] [id number] [address] Dec, [facility] [address], [place] [address] Dec, [facility] [address], [place] [address] Dec, [facility] [address], [place] [address] Dec, [facility] [address], [place] [address] Dec, Routine adult health maintenance Z00.00 ; Chronic obstructive pulmonary disease, unspecified COPD type J44.9 and Encounter for immunization Z23 [facility] [address], [place] [address] Nov, [facility] [address], [place] [address] Nov, UTI (urinary tract infection) N39.0 and Other chronic pain G89.29 [facility] [address], [place] [address] Nov, [facility] [id number], [place] [address] Nov, [facility] [id number], [place] [address] Nov, Painful urination R30.9 and UTI (urinary tract infection) N39.0 [facility] [id number] [address] Nov, [facility] [id number], [place] [address] Nov, UTI (urinary tract infection) N39.0 [place] [id number] [place] [address] Nov, Dysuria R30.0 ; UTI (urinary tract infection) N39.0 and Chronic pain G89.29 [place] [id number] [place] [address] Nov, [facility] [facility] [address] [address] Oct, Cough R05 [facility] [facility] [id number] [place] [address] Oct, Sinusitis J32.9 [facility] [id number] [place] [address] Oct, [facility] [id number] [place] [address] Oct, UTI (urinary tract infection) N39.0 and URI (upper respiratory infection) J06.9 [facility] [facility] [id number] [place] [address] Sep, Pain in thoracic spine M54.6 [facility] [id number] [place] [address] 09 Sep, 2018 Type 2 diabetes mellitus with hyperglycemia E11.65 [facility] [id number] [place] [address] Sep, Chronic obstructive pulmonary disease, unspecified COPD type J44.9 ; Abrasion of right ear canal, initial encounter S00.411A ; Cigarette nicotine dependence without complication F17.210 ; Right leg pain M79.604 and Seasonal allergies J30.2 [facility] [facility] [id number] [place] [address] Aug, [facility] [facility] [id number] [place] [address] Aug, [place] [address] [place] [address] Aug, Pain in thoracic spine M54.6 [place] [address] [address] Aug, [place] [address] [address] Aug, Chronic obstructive pulmonary disease, unspecified COPD type J44.9 ; Complete amputation of right foot, 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 ; Cigarette nicotine dependence without complication F17.210 and BMI 40.0-44.9, adult Z68.41 [place] [address] [address] Jul, [place] [address] [address] Jul, [place] [address] [address] Jul, Onychomycosis B35.1 ; Onychocryptosis L60.0 and DM neuro manif type II E11.49 [place] [address] [address] Jun, Pain in thoracic spine M54.6 [place] [address] [address] Jun, Iron deficiency anemia due to chronic blood loss D50.0 and Hematochezia K92.1 [place] [address] [address] Jun, Gastroenteritis K52.9 and Abnormal RBC indices R71.8 [place] [address] [address] Jun, [place] [address] [address] Jun, Chest congestion R09.89 and Seizures R56.9 [place] [address] [address] May, Pain in thoracic spine M54.6 [facility] [address] [facility] [id number] [place] [address] May, [facility] [id number] [place] [address] May, [facility] [id number] [place] [address] May, [facility] [id number] [place] [address] May, Acute non-recurrent frontal sinusitis J01.10 and Dermatitis L30.9 [facility] [id number] [place] [address] May, [facility] [id number] [place] [address] May, Pain in thoracic spine M54.6 [facility] [id number] [place] [address] May, [facility] [id number] [place] [address] May, Acute nasopharyngitis J00 [facility] [id number] [place] [address] May, [facility] [id number] [place] [address] May, [facility] [id number] [place] [address] Apr, [facility] [id number] [place] [address] Apr, [facility] [id number] [place] [address] Apr, [facility] [id number] [place] [address] Apr, [facility] [facility] [id number] [place] [address] Apr, Pain in right ankle and joints of right foot M25.571 [place] [facility] [id number] [place] [address] Apr, [facility] [id number] [place] [address] Apr, Bronchitis J40 ; Pain in right ankle and joints of right foot M25.571 ; Other chronic pain G89.29 ; Prediabetes R73.03 ; Chronic obstructive pulmonary disease, unspecified COPD type J44.9 and Cigarette nicotine dependence without complication F17.[address] [facility] [id number] [place] [address] 13 Apr, 2018 Seasonal allergic rhinitis, unspecified trigger J30.[address] [address] 08 Apr, 2018 Onychomycosis B35.1 ; Onychocryptosis L60.0 and DM neuro manif type II E11.49 [id number] [place] [address] Apr, Reactive depression F32.9 ; Thoracic myofascial strain, initial encounter S29.019A and Leg cramps R25.2 [place] [id number] [place] [address] March, [place] [facility] [id number] [place] [address] March, Type 2 diabetes mellitus with hyperglycemia E11.65 [place] [id number] [place] [address] March, Reactive depression F32.9 [id number] [place] [address] March, Pain in thoracic spine M54.6 and Other chronic pain G89.29 [place] [address] [address] Feb, [place] [address] [address] Jan, Reactive depression F32.9 ; Essential hypertension I10 ; Gastroesophageal reflux disease, esophagitis presence not specified K21.9 ; Lumbago with sciatica, left side M54.42 and Lumbago with sciatica, right side M54.41 [place] [address] [address] Jan, Reactive depression F32.9 and Pharyngoesophageal dysphagia R13.14 [place] [address] [address] Jan, [place] [address] [address] Jan, Encounter for immunization Z23 [place] [address] [address] Jan, Onychomycosis B35.1 and DM neuro manif type II E11.[address] [address] Jan, [place] [address] [address] Jan, Prediabetes R73.03 [place] [address] [address] Dec, [place] [address] [address] Dec, Essential hypertension I10 ; Mixed hyperlipidemia E78.2 ; Acquired hypothyroidism E03.9 ; Reactive depression F32.9 and Prediabetes R73.03 [place] [address] [address] Dec, [place] [address] [address] Dec, [facility] [address], [place] [address] Dec, DM neuro manif type II E11.49 [facility] [address], [place] [address] 08 Dec, 2017 Bruise T14.8XXA ; Type 2 diabetes mellitus with hyperglycemia E11.65 and 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.4 [facility] [id number] [place] [address] Oct, [facility] [id number] [place] [address] March, Onychomycosis B35.1 and DM neuro manif type II E11.49 [facility] [id number] [place] [address] Jun, [facility] [id number] [place] [address] Jun, [facility] [id number] [place] [address] Jun, COPD with acute exacerbation 491.21 [facility] [id number] [place] [address] Apr, [facility] [address], [place] [address] Feb, [facility] [id number], [place] [address] Feb, [facility] [id number] [place] [address] Jan, [facility] [id number] [place] [address] Jan, [facility] [address], [place] [address] Jan, [facility] [address] [facility] [id number] [place] [address] 2014 [facility] [place] [facility] [address] [id number] [place] [address] 24 Jan, 2015 [facility] [place] [facility] [address] [id number] [place] [address] 23 Jan, 2014 [facility] [place] [facility] [address] [id number] [place] [address] 23 Jan, 2014 [facility] [place] [facility] [address] [id number] [place] [address] 23 Jan, 2015 [facility] [place] [facility] [address] [id number] [place] [address] 23 Jan, 2014 [facility] [place] [facility] [address] [id number] [place] [address] 19 Jan, 2014 [facility] [place] [facility] [address] [id number] [place] [address] 19 Jan, 2014 [facility] [place] [facility] [address] [id number] [place] [address] 18 Jan, 2015 [facility] [place] [facility] [address] [id number] [place] [address] 18 Jan, 2014 [facility] [place] [facility] [address] [id number] [place] [address] 16 Jan, 2014 [facility] [place] [facility] [address] [id number] [place] [address] 16 Jan, 2014 [facility] [place] [facility] [address] [id number] [place] [address] 16 Jan, 2014 [facility] [place] [facility] [address] [id number] [place] [address] 16 Jan, 2014 [facility] [place] [facility] [address] [id number] [place] [address] 15 Jan, 2014 [facility] [place] [facility] [address] [id number] [place] [address] 13 Jan, 2015 [facility] [place] [facility] [address] [id number] [place] [address] 13 Jan, 2015 [facility] [place] [facility] [address] [id number] [place] [address] Jan, [facility] [place] [facility] [address] [id number] [place] [address] Jan, [facility] [place] [facility] [address] [id number] [place] [address] Jan, [facility] [place] [facility] [address] [id number] [place] [address] Jan, [facility] [place] [facility] [address] [id number] [place] [address] Jan, [facility] [place] [facility] [address] [facility] [id number] [place] [address] 24 Dec, 2014 [facility] [place] [facility] [address] [facility] [id number] [place] [address] Dec, 2014 [facility] [place] [facility] [address] [facility] [id number] [place] [address] Dec, 2014 [facility] [place] [facility] [address] [facility] [id number] [place] [address] Dec, 2014 [facility] [place] [facility] [address] [facility] [id number] [place] [address] Dec, 2014 [facility] [place] [facility] [address] [facility] [id number] [place] [address] Dec, 2014 [facility] [place] [facility] [address] [facility] [id number] [place] [address] Dec, 2014 [facility] [place] [facility] [address] [facility] [id number] [place] [address] Dec, 2014 [facility] [place] [facility] [address] [facility] [id number] [place] [address] 19 Dec, 2014 [facility] [place] [facility] [address] [id number] [place] [address] Dec, [facility] [place] [facility] [address] [id number] [place] [address] Dec, [facility] [place] [facility] [address] [id number] [place] [address] Dec, [facility] [place] [facility] [address] [id number] [place] [address] Nov, [facility] [place] [facility] [address] [id number] [place] [address] Nov, [facility] [place] [facility] [address] [id number] [place] [address] Nov, [facility] [place] [facility] [address] [id number] [place] [address] Nov, [facility] [place] [facility] [address] [id number] [place] [address] Nov, [facility] [place] [facility] [address] [id number] [place] [address] Nov, [facility] [place] [facility] [address] [id number] [place] [address] Nov, [facility] [place] [facility] [address] [id number] [place] [address] Nov, [facility] [place] [facility] [address] [id number] [place] [address] Nov, [facility] [place] [facility] [address] [id number] [place] [address] Nov, [facility] [place] [facility] [address] [id number] [place] [address] Nov, [facility] [place] [facility] [address] [id number] [place] [address] Nov, [facility] [place] [facility] [address] [id number] [place] [address] 31 Oct, 2014 [facility] [place] [facility] [address] [id number] [place] [address] 31 Oct, 2014 [facility] [place] [facility] [address] [id number] [place] [address] 30 Oct, 2014 [facility] [place] [facility] [address] [id number] [place] [address] 30 Oct, 2014 [facility] [place] [facility] [address] [id number] [place] [address] 29 Oct, 2014 [facility] [place] [facility] [address] [id number] [place] [address] 29 Oct, 2014 [facility] [place] [facility] [address] [id number] [place] [address] Oct, [facility] [place] [facility] [address] [id number] [place] [address] Oct, [facility] [place] [facility] [address] [id number] [place] [address] 17 Oct, 2014 [facility] [place] [facility] [address] [id number] [place] [address] 17 Oct, 2014 [facility] [place] [facility] [address] [id number] [place] [address] 16 Oct, 2014 [facility] [place] [facility] [address] [id number] [place] [address] 16 Oct, 2014 [facility] [place] [facility] [address] [id number] [place] [address] 15 Oct, 2014 [facility] [place] [facility] [address] [id number] [place] [address] 15 Oct, 2014 [facility] [place] [facility] [address] [id number] [place] [address] 08 Oct, 2014 [facility] [place] [facility] [address] [id number] [place] [address] 24 Sep, 2014 [facility] [place] [facility] [address] [id number] [place] [address] Sep, [facility] [place] [facility] [address] [id number] [place] [address] Sep, [facility] [place] [facility] [address] [id number] [place] [address] Sep, [facility] [place] [facility] [address] [id number] [place] [address] Aug, [facility] [place] [facility] [address] [id number] [place] [address] Aug, [facility] [place] [facility] [address] [id number] [place] [address] Aug, [facility] [place] [facility] [address] [id number] [place] [address] Aug, [facility] [place] [facility] [address] [id number] [place] [address] Aug, [facility] [place] [facility] [address] [id number] [place] [address] Aug, [facility] [place] [facility] [address] [id number] [place] [address] 29 Jul, 2014 [facility] [place] [facility] [address] [id number] [place] [address] 29 Jul, 2014 [facility] [place] [facility] [address] [id number] [place] [address] 15 Jul, 2014 [facility] [place] [facility] [address] [id number] [place] [address] 15 Jul, 2014 [facility] [place] [facility] [address] [id number] [place] [address] 08 Jul, 2014 [facility] [place] [facility] [address] [id number] [place] [address] 08 Jul, 2014 [facility] [place] [facility] [address] [id number] [place] [address] Jun, [facility] [place] [facility] [address] [id number] [place] [address] Jun, [facility] [place] [facility] [address] [id number] [place] [address] Jun, [facility] [place] [facility] [address] [id number] [place] [address] Jun, [facility] [place] [facility] [address] [id number] [place] [address] Jun, [facility] [place] [facility] [address] [id number] [place] [address] Jun, [facility] [place] [facility] [address] [id number] [place] [address] Jun, [facility] [place] [facility] [address] [id number] [place] [address] May, [facility] [place] [facility] [address] [id number] [place] [address] May, [facility] [place] [facility] [address] [id number] [place] [address] May, [facility] [place] [facility] [address] [id number] [place] [address] May, [facility] [place] [facility] [address] [id number] [place] [address] May, [facility] [place] [facility] [address] [id number] [place] [address] May, [facility] [place] [facility] [address] [id number] [place] [address] May, [facility] [place] [facility] [address] [id number] [place] [address] May, [facility] [place] [facility] [address] [id number] [place] [address] May, [facility] [place] [facility] [address] [id number] [place] [address] May, [facility] [place] [facility] [address] [id number] [place] [address] May, [facility] [place] [facility] [address] [id number] [place] [address] May, [facility] [place] [facility] [address] [id number] [place] [address] Apr, [facility] [place] [facility] [address] [id number] [place] [address] Apr, [facility] [place] [facility] [address] [id number] [place] [address] Apr, [facility] [place] [facility] [address] [id number] [place] [address] Apr, [facility] [place] [facility] [address] [id number] [place] [address] Apr, [facility] [place] [facility] [address] [id number] [place] [address] Apr, [facility] [place] [facility] [address] [id number] [place] [address] Apr, [facility] [place] [facility] [address] [id number] [place] [address] Apr, [facility] [place] [facility] [address] [id number] [place] [address] Apr, [facility] [place] [facility] [address] [id number] [place] [address] Apr, [facility] [place] [facility] [address] [id number] [place] [address] March, [facility] [place] [facility] [address] [id number] [place] [address] March, [facility] [place] [facility] [address] [id number] [place] [address] March, [facility] [place] [facility] [address] [id number] [place] [address] March, [facility] [place] [facility] [address] [id number] [place] [address] March, [facility] [place] [facility] [address] [id number] [place] [address] March, [facility] [place] [facility] [address] [id number] [place] [address] Feb, [facility] [place] [facility] [address] [id number] [place] [address] Feb, [facility] [place] [facility] [address] [id number] [place] [address] Feb, [facility] [place] [facility] [address] [id number] [place] [address] Feb, [facility] [place] [facility] [address] [id number] [place] [address] Feb, [facility] [place] [facility] [address] [id number] [place] [address] Feb, [facility] [place] [facility] [address] [id number] [place] [address] Feb, [facility] [place] [facility] [address] [id number] [place] [address] Feb, [facility] [place] [facility] [address] [id number] [place] [address] Feb, [facility] [place] [facility] [address] [id number] [place] [address] Feb, [facility] [place] [facility] [address] [id number] [place] [address] Jan, [facility] [place] [facility] [address] [id number] [place] [address] Jan, [facility] [place] [facility] [address] [id number] [place] [address] Jan, [facility] [place] [facility] [address] [id number] [place] [address] Jan, [facility] [place] [facility] [address] [id number] [place] [address] Jan, [facility] [place] [facility] [address] [id number] [place] [address] Jan, [facility] [place] [facility] [address] [id number] [place] [address] Jan, [facility] [place] [facility] [address] [id number] [place] [address] Jan, [facility] [place] [facility] [address] [id number] [place] [address] Dec, [facility] [place] [facility] [address] [id number] [place] [address] Dec, [facility] [place] [facility] [address] [id number] [place] [address] Dec, [facility] [place] [facility] [address] [id number] [place] [address] Dec, [facility] [place] [facility] [address] [id number] [place] [address] Dec, [facility] [place] [facility] [address] [id number] [place] [address] Dec, [facility] [place] [facility] [address] [id number] [place] [address] Dec, [facility] [place] [facility] [address] [id number] [place] [address] Dec, [facility] [place] [facility] [address] [id number] [place] [address] Nov, [facility] [place] [facility] [address] [id number] [place] [address] Nov, [facility] [place] [facility] [address] [id number] [place] [address] Nov, [facility] [address] [id number] [place] [address] Nov, [facility] [place] [facility] [address] [id number] [place] [address] Nov, [facility] [address] [id number] [place] [address] Nov, [facility] [place] [facility] [address] [id number] [place] [address] Nov, [facility] [place] [facility] [address] [id number] [place] [address] Nov, [facility] [place] [facility] [address] [id number] [place] [address] Nov, [facility] [place] [facility] [address] [id number] [place] [address] Nov, [facility] [address] [id number] [place] [address] Nov, [facility] [place] [facility] [address] [id number] [place] [address] Oct, [facility] [address] [id number] [place] [address] Oct, [facility] [place] [facility] [address] [id number] [place] [address] Oct, [facility] [place] [facility] [address] [id number] [place] [address] Oct, [facility] [place] [facility] [address] [id number] [place] [address] Sep, [facility] [place] [facility] [address] [id number] [place] [address] Sep, [facility] [place] [facility] [address] [id number] [place] [address] Sep, [facility] [place] [facility] [address] [id number] [place] [address] Sep, [facility] [place] [facility] [address] [id number] [place] [address] Aug, [facility] [place] [facility] [address] [id number] [place] [address] Aug, [facility] [place] [facility] [address] [id number] [place] [address] Aug, [facility] [place] [facility] [address] [id number] [place] [address] Aug, [facility] [place] [facility] [address] [id number] [place] [address] Aug, [facility] [place] [facility] [address] [id number] [place] [address] Aug, [facility] [place] [facility] [address] [id number], [place] [address] Aug, [facility] [place] [facility] [address] [id number] [place] [address] Aug, [facility] [place] [facility] [address] [id number], [place] [address] 28 Jul, 2013 [facility] [place] [facility] [address] [id number], [place] [address] 27 Jul, 2013 [facility] [place] [facility] [address] [id number], [place] [address] 26 Jul, 2013 [facility] [place] [facility] [address] [id number] [place] [address] 24 Jul, 2013 [facility] [place] [facility] [address] [id number], [place] [address] 24 Jul, 2013 [facility] [place] [facility] [address] [id number] [place] [address] 23 Jul, 2013 [facility] [place] [facility] [address] [id number] [place] [address] 19 Jul, 2012 [facility] [place] [facility] [address] [id number] [place] [address] 18 Sep, 2012 [facility] [place] [facility] [address] [id number] [place] [address] 17 Jul, 2012 [facility] [place] [facility] [address] [id number] [place] [address] 16 Jul, 2012 [facility] [place] [facility] [address] [id number] [place] [address] 13 Jul, 2012 [facility] [place] [facility] [address] [id number] [place] [address] 13 Jul, 2012 [facility] [place] [facility] [address] [id number] [place] [address] 12 Jul, 2012 [facility] [place] [facility] [address] [id number] [place] [address] 11 Jul, 2012 [facility] [place] [facility] [address] [id number] [place] [address] 04 Jul, 2013 [facility] [place] [facility] [address] [id number] [place] [address] 30 Jun, 2013 [facility] [place] [facility] [address] [id number] [place] [address] Jun, [facility] [place] [facility] [address] [id number] [place] [address] Jun, [facility] [place] [facility] [address] [id number] [place] [address] May, [facility] [place] [facility] [address] [id number] [place] [address] May, [facility] [place] [facility] [address] [id number] [place] [address] May, [facility] [place] [facility] [address] [id number] [place] [address] May, [facility] [place] [facility] [address] [id number] [place] [address] Apr, [facility] [address] [id number] [place] [address] Apr, [facility] [place] [facility] [address] [id number] [place] [address] Apr, [facility] [place] [facility] [address] [id number] [place] [address] Apr, [facility] [address] [id number] [place] [address] March, [facility] [place] [facility] [address] [id number] [place] [address] March, [facility] [address] [id number] [place] [address] March, [facility] [address] [id number] [place] [address] Feb, [facility] [address] [id number] [place] [address] Feb, [facility] [address] [id number] [place] [address] Jan, [facility] [place] [facility] [address] [id number] [place] [address] Jan, [facility] [place] [facility] [address] [id number] [place] [address] Jan, [facility] [place] [facility] [address] [id number] [place] [address] Jan, [facility] [place] [facility] [address] [id number] [place] [address] Jan, [facility] [place] [facility] [address] [id number] [place] [address] Dec, [facility] [place] [facility] [address] [id number] [place] [address] Dec, [facility] [address] [id number] [place] [address] Dec, [facility] [address] [id number] [place] [address] Dec, [facility] [address] [id number] [place] [address] Dec, [facility] [address] [id number] [place] [address] Dec, [facility] [address] [id number] [place] [address] Dec, [facility] [address] [id number] [place] [address] Dec, [facility] [address] [id number] [place] [address] Nov, [facility] [address] [id number] [place] [address] Nov, [facility] [address] [id number] [place] [address] Nov, [facility] [address] [facility] [id number] [place] [address] Nov, [facility] [address] [id number] [place] [address] Nov, [facility] [address] [id number], [place] [address] Nov, [facility] [address] [id number] [place] [address] Nov, [facility] [address] [id number] [place] [address] Oct, [facility] [address] [id number], [place] [address] Oct, [facility] [place] [facility] [address] [id number] [place] [address] Oct, [facility] [place] [facility] [address] [id number] [place] [address] Oct, [facility] [place] [facility] [address] [id number] [place] [address] Oct, [facility] [place] [facility] [address] [id number] [place] [address] Oct, [facility] [place] [facility] [address] [id number] [place] [address] Oct, [facility] [place] [facility] [address] [id number] [place] [address] Oct, [facility] [place] [facility] [address] [id number] [place] [address] Sep, [facility] [place] [facility] [address] [id number] [place] [address] Sep, [facility] [place] [facility] [address] [id number] [place] [address] Sep, [facility] [place] [facility] [address] [id number] [place] [address] Sep, [facility] [place] [facility] [address] [id number] [place] [address] Sep, [facility] [place] [facility] [address] [id number] [place] [address] Sep, [facility] [place] [facility] [address] [id number] [place] [address] Sep, [facility] [place] [facility] [address] [id number] [place] [address] Sep, [facility] [place] [facility] [address] [id number] [place] [address] Sep, [facility] [place] [facility] [address] [id number] [place] [address] Sep, [facility] [place] [facility] [address] [id number] [place] [address] Sep, [facility] [place] [facility] [address] [id number] [place] [address] Sep, [facility] [place] [facility] [address] [facility] [id number] [place] [address] Sep, [facility] [place] [facility] [address] [id number] [place] [address] Sep, [facility] [place] [facility] [address] [id number] [place] [address] Sep, [facility] [place] [facility] [address] [facility] [id number] [place] [address] Sep, [facility] [place] [facility] [address] [facility] [id number] [place] [address] Sep, [facility] [place] [facility] [address] [id number], [place] [address] Sep, [facility] [place] [facility] [address] [id number], [place] [address] Sep, [facility] [place] [facility] [address] [facility] [id number], [place] [address] Sep, [facility] [place] [facility] [address] [id number], [place] [address] Aug, [facility] [place] [facility] [address] [id number], [place] [address] Aug, [facility] [place] [facility] [address] [id number], [place] [address] Aug, [facility] [place] [facility] [address] [facility] [id number], [place] [address] Aug, [facility] [place] [facility] [address] [facility] [id number], [place] [address] Aug, [facility] [place] [facility] [address] [id number] [place] [address] 18 Aug, 2011 [facility] [place] [facility] [address] [id number] [place] [address] 18 Aug, 2012 [facility] [place] [facility] [address] [id number] [place] [address] 17 Aug, 2012 [facility] [place] [facility] [address] [id number] [place] [address] 16 Aug, 2012 [facility] [place] [facility] [address] [id number] [place] [address] 16 Aug, 2012 [facility] [place] [facility] [address] [id number] [place] [address] 15 Aug, 2012 [facility] [place] [facility] [address] [id number] [place] [address] 09 Aug, 2012 [facility] [place] [facility] [address] [id number] [place] [address] 05 Aug, 2012 [facility] [place] [facility] [address] [id number] [place] [address] 05 Aug, 2012 [facility] [place] [facility] [address] [id number] [place] [address] 04 Aug, 2012 [facility] [place] [facility] [address] [id number] [place] [address] 14 Jul, 2012 [facility] [place] [facility] [address] [id number] [place] [address] 10 Jul, 2012 [facility] [place] [facility] [address] [id number] [place] [address] Jun, [facility] [place] [facility] [address] [id number] [place] [address] Jun, [facility] [place] [facility] [address] [id number] [place] [address] May, [facility] [place] [facility] [address] [id number] [place] [address] May, [facility] [place] [facility] [address] [id number] [place] [address] May, [facility] [place] [facility] [address] [id number] [place] [address] May, [facility] [place] [facility] [address] [id number] [place] [address] May, [facility] [place] [facility] [address] [id number] [place] [address] May, [facility] [address] [id number] [place] [address] Apr, [facility] [place] [facility] [address] [id number] [place] [address] Apr, [facility] [address] [id number] [place] [address] March, [facility] [address] [id number] [place] [address] March, [facility] [address] [id number] [place] [address] March, [facility] [address] [id number] [place] [address] March, [facility] [place] [facility] [address] [id number] [place] [address] March, [facility] [place] [facility] [address] [id number] [place] [address] March, [facility] [place] [facility] [address] [id number] [place] [address] Feb, [facility] [place] [facility] [address] [id number] [place] [address] Feb, [facility] [place] [facility] [address] [id number] [place] [address] Feb, [facility] [place] [facility] [address] [id number] [place] [address] 25 Feb, 2012 [facility] [address] [id number] [place] [address] 23 Feb, 2012 [facility] [place] [facility] [address] [id number] [place] [address] Feb, [facility] [place] [facility] [address] [id number] [place] [address] Feb, [facility] [place] [facility] [address] [id number] [place] [address] Feb, [facility] [place] [facility] [address] [id number] [place] [address] Feb, [facility] [place] [facility] [address] [id number] [place] [address] 30 Jan, 2012 [facility] [place] [facility] [address] [id number] [place] [address] 27 Jan, 2012 [facility] [place] [facility] [address] [id number] [place] [address] Jan, [facility] [place] [facility] [address] [id number] [place] [address] 22 Jan, 2012 [facility] [place] [facility] [address] [id number] [place] [address] Jan, [facility] [place] [facility] [address] [id number] [place] [address] Jan, [facility] [place] [facility] [address] [id number] [place] [address] 14 Jan, 2012 [facility] [place] [facility] [address] [id number] [place] [address] 09 Jan, 2012 [facility] [place] [facility] [address] [id number] [place] [address] 09 Jan, 2012 [facility] [place] [facility] [address] [id number] [place] [address] 08 Jan, 2012 [facility] [place] [facility] [address] [id number] [place] [address] 07 Jan, 2012 [facility] [place] [facility] [address] [id number] [place] [address] Jan, [facility] [place] [facility] [address] [id number] [place] [address] Jan, [facility] [place] [facility] [address] [id number] [place] [address] Jan, [facility] [place] [facility] [address] [id number] [place] [address] Dec, [facility] [place] [facility] [address] [id number] [place] [address] Dec, [facility] [place] [facility] [address] [facility] [id number] [place] [address] Dec, [facility] [place] [facility] [address] [id number] [place] [address] Dec, [facility] [place] [facility] [address] [id number] [place] [address] 16 Dec, 2011 [facility] [place] [facility] [address] [facility] [id number] [place] [address] Dec, [facility] [place] [facility] [address] [facility] [id number] [place] [address] Dec, [facility] [place] [facility] [address] [id number], [place] [address] Dec, [facility] [place] [facility] [address] [id number] [place] [address] Dec, [facility] [place] [facility] [address] [id number] [place] [address] Nov, [facility] [place] [facility] [address] [id number] [place] [address] Nov, [facility] [place] [facility] [address] [id number], [place] [address] Nov, [facility] [address] [id number] [place] [address] Nov, [facility] [place] [facility] [address] [id number] [place] [address] Oct, [facility] [place] [facility] [address] [id number] [place] [address] Oct, [facility] [place] [facility] [address] [id number] [place] [address] Oct, [facility] [place] [facility] [address] [id number] [place] [address] Oct, [facility] [place] [facility] [address] [id number] [place] [address] Oct, [facility] [place] [facility] [address] [facility] [id number] [place] [address] Oct, [facility] [place] [facility] [address] [id number] [place] [address] Oct, [facility] [place] [facility] [address] [id number] [place] [address] Sep, [facility] [place] [facility] [address] [facility] [id number] [place] [address] Sep, [facility] [place] [facility] [address] [id number] [place] [address] Sep, [facility] [place] [facility] [address] [id number] [place] [address] Sep, [facility] [place] [facility] [address] [id number] [place] [address] Sep, [facility] [place] [facility] [address] [facility] [id number] [place] [address] Sep, [facility] [place] [facility] [address] [facility] [id number] [place] [address] Sep, [facility] [place] [facility] [address] [id number] [place] [address] Sep, [facility] [place] [facility] [address] [id number] [place] [address] Sep, [facility] [place] [facility] [address] [id number] [place] [address] Aug, [facility] [place] [facility] [address] [id number] [place] [address] Aug, [facility] [place] [facility] [address] [id number] [place] [address] Aug, [facility] [place] [facility] [address] [id number] [place] [address] May, [facility] [place] [facility] [address] [id number] [place] [address] Nov, [facility] [place] [facility] [address] [id number] [place] [address] Oct, [facility] [place] [facility] [address] [id number] [place] [address] Oct, [facility] [place] [facility] [address] [id number] [place] [address] Oct, [facility] [place] [facility] [address] [facility] [id number] [place] [address] Oct, [facility] [place] [facility] [address] [id number] [place] [address] Oct, [facility] [place] [facility] [address] [id number] [place] [address] Sep, [facility] [place] [facility] [address] [id number] [place] [address] Sep, [facility] [place] [facility] [address] [id number] [place] [address] 14 Jul, 2010 [facility] [place] [facility] [address] [id number] [place] [address] Oct, [facility] [address] [facility] [id number], [place] [address] Oct, [facility] [address] [facility] [id number], [place] [address] Oct, [facility] [address] [facility] [id number], [place] [address] Oct, [facility] [address] [facility] [id number], [place] [address] Sep, [facility] [address] [facility] [id number], [place] [address] Sep, [facility] [address] [facility] [id number], [place] [address] Sep, [facility] [id number], [place] [address] Sep, [facility] [id number], [place] [address] Sep, [facility] [address] [facility] [id number], [place] [address] Jul, [facility] [id number], [place] [address] Apr, [facility] [address] [id number], [place] [address] Dec, IMMUNIZATIONS No Known Immunizations SOCIAL HISTORY Never Assessed REASON FOR VISIT [facility] PLAN OF CARE VITAL SIGNS MEDICATIONS Unknown [...]
--- OUTSIDE RECORDS SUMMARY | 2019-06-14 11:26 | XMS REPORT ---
Author Author Migration, Doctor Organization [facility] Address Unknown Phone Unavailable Care Team Providers Care Vaccine Specialist Name Role Phone Migration, Doctor Unavailable Unavailable PROBLEMS Type Condition ICD9-CM Code VES32-NI Code Onset Dates Condition Status SNOMED Code Problem Essential hypertension I10 Active 65280007 Problem Prediabetes R73.03 Active 397955132 Problem Reactive depression F32.9 Active 53279971 Problem Acquired hypothyroidism E03.9 Active 645211794 Problem Gastroesophageal reflux disease, esophagitis presence not specified K21.9 Active 553029510 Problem Mixed hyperlipidemia E78.2 Active 938914871 Problem Other chronic pain G89.29 Active 74689451 Problem Chronic obstructive pulmonary disease, unspecified COPD type J44.9 Active 02584612 Problem Cigarette nicotine dependence without complication F17.210 Active 73070490 Problem Sinusitis J32.9 Active 95990718 Problem Lumbago with sciatica, right side M54.41 Active [id number] Problem Chronic pain G89.29 Active 16928491 Problem Lumbago with sciatica, left side M54.42 Active 964120564 Problem DM neuro manif type II E11.49 Active 23575492 Problem Seizures R56.9 Active 04208254 Problem Iron deficiency anemia due to chronic blood loss D50.0 Active 235918204 Problem Seasonal allergies J30.2 Active 887779248 ALLERGIES No Information ENCOUNTERS Encounter Location Date Diagnosis [facility] [id number], [place] [address] Feb, [facility] [id number] [place] [address] Feb, [facility] [id number] [place] [address] Jan, [facility] [id number], [place] [address] Jan, Acute cystitis with hematuria N30.01 and Dysuria R30.0 [facility] [id number], [place] [address] Jan, [facility] [address] [facility] [id number] [address] Dec, [facility] [address], [place] [address] Dec, [facility] [address], [place] [address] Dec, [facility] [address], [place] [address] Dec, [facility] [address], [place] [address] Dec, Routine adult health maintenance Z00.00 ; Chronic obstructive pulmonary disease, unspecified COPD type J44.9 and Encounter for immunization Z23 [facility] [address], [place] [address] Nov, [facility] [address], [place] [address] Nov, UTI (urinary tract infection) N39.0 and Other chronic pain G89.29 [facility] [address], [place] [address] Nov, [facility] [id number], [place] [address] Nov, [facility] [id number], [place] [address] Nov, Painful urination R30.9 and UTI (urinary tract infection) N39.0 [facility] [id number], [place] [address] Nov, [facility] [id number], [place] [address] Nov, UTI (urinary tract infection) N39.0 [place] [address] [place] [address] Nov, Dysuria R30.0 ; UTI (urinary tract infection) N39.0 and Chronic pain G89.29 [facility] [address] [place] [address] Nov, [facility] [address] [address] Oct, Cough R05 [facility] [facility] [id number] [place] [address] Oct, Sinusitis J32.9 [facility] [id number] [place] [address] Oct, [facility] [id number] [place] [address] Oct, UTI (urinary tract infection) N39.0 and URI (upper respiratory infection) J06.9 [facility] [facility] [id number] [place] [address] Sep, Pain in thoracic spine M54.6 [facility] [id number] [place] [address] 09 Sep, 2018 Type 2 diabetes mellitus with hyperglycemia E11.65 [facility] [id number] [place] [address] Sep, Chronic obstructive pulmonary disease, unspecified COPD type J44.9 ; Abrasion of right ear canal, initial encounter S00.411A ; Cigarette nicotine dependence without complication F17.210 ; Right leg pain M79.604 and Seasonal allergies J30.2 [facility] [id number] [place] [address] Aug, [facility] [facility] [id number] [place] [address] Aug, [place] [address] [place] [address] Aug, Pain in thoracic spine M54.6 [place] [address] [address] Aug, [facility] [address] [address] Aug, Chronic obstructive pulmonary disease, unspecified COPD type J44.9 ; Complete amputation of right foot, 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 ; Cigarette nicotine dependence without complication F17.210 and BMI 40.0-44.9, adult Z68.41 [place] [address] [address] Jul, [place] [address] [address] Jul, [place] [address] [address] Jul, Onychomycosis B35.1 ; Onychocryptosis L60.0 and DM neuro manif type II E11.49 [facility] [address] [address] Jun, Pain in thoracic spine M54.6 [place] [address] [address] Jun, Iron deficiency anemia due to chronic blood loss D50.0 and Hematochezia K92.1 [place] [address] [address] Jun, Gastroenteritis K52.9 and Abnormal RBC indices R71.8 [place] [address] [address] Jun, [place] [address] [address] Jun, Chest congestion R09.89 and Seizures R56.9 [place] [address] [address] May, Pain in thoracic spine M54.6 [facility] [address] [facility] [id number] [place] [address] May, [facility] [id number] [place] [address] May, [facility] [id number] [place] [address] May, [facility] [id number] [place] [address] May, Acute non-recurrent frontal sinusitis J01.10 and Dermatitis L30.9 [facility] [id number] [place] [address] May, [facility] [id number] [place] [address] May, Pain in thoracic spine M54.6 [facility] [id number] [place] [address] May, [facility] [id number] [place] [address] May, Acute nasopharyngitis J00 [facility] [id number] [place] [address] May, [facility] [id number] [place] [address] May, [facility] [id number] [place] [address] Apr, [facility] [id number] [place] [address] Apr, [facility] [id number] [place] [address] Apr, [facility] [id number] [place] [address] Apr, [facility] [id number] [place] [address] Apr, Pain in right ankle and joints of right foot M25.571 [place] [id number] [place] [address] Apr, [facility] [facility] [id number] [place] [address] Apr, Bronchitis J40 ; Pain in right ankle and joints of right foot M25.571 ; Other chronic pain G89.29 ; Prediabetes R73.03 ; Chronic obstructive pulmonary disease, unspecified COPD type J44.9 and Cigarette nicotine dependence without complication F17.210 [facility] [id number] [place] [address] 13 Apr, 2018 Seasonal allergic rhinitis, unspecified trigger J30.[address] [address] 08 Apr, 2018 Onychomycosis B35.1 ; Onychocryptosis L60.0 and DM neuro manif type II E11.49 [address] [id number] [place] [address] Apr, Reactive depression F32.9 ; Thoracic myofascial strain, initial encounter S29.019A and Leg cramps R25.2 [place] [id number] [place] [address] March, [place] [facility] [id number] [place] [address] March, Type 2 diabetes mellitus with hyperglycemia E11.65 [place] [id number] [place] [address] March, Reactive depression F32.9 [address] [id number] [place] [address] March, Pain in thoracic spine M54.6 and Other chronic pain G89.29 [place] [address] [address] Feb, [place] [address] [address] Jan, Reactive depression F32.9 ; Essential hypertension I10 ; Gastroesophageal reflux disease, esophagitis presence not specified K21.9 ; Lumbago with sciatica, left side M54.42 and Lumbago with sciatica, right side M54.41 [place] [address] [address] Jan, Reactive depression F32.9 and Pharyngoesophageal dysphagia R13.14 [place] [address] [address] Jan, [place] [address] [address] Jan, Encounter for immunization Z23 [place] [address] [address] Jan, Onychomycosis B35.1 and DM neuro manif type II E11.[address] [address] Jan, [place] [address] [address] Jan, Prediabetes R73.03 [place] [address] [address] Dec, [place] [address] [address] Dec, Essential hypertension I10 ; Mixed hyperlipidemia E78.2 ; Acquired hypothyroidism E03.9 ; Reactive depression F32.9 and Prediabetes R73.03 [place] [address] [address] Dec, [place] [address] [address] Dec, [facility] [address], [place] [address] Dec, DM neuro manif type II E11.49 [facility] [address], [place] [address] 08 Dec, 2017 Bruise T14.8XXA ; Type 2 diabetes mellitus with hyperglycemia E11.65 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 [facility] [id number] [place] [address] Oct, [facility] [id number] [place] [address] March, Onychomycosis B35.1 and DM neuro manif type II E11.49 [facility] [id number] [place] [address] Jun, [facility] [id number] [place] [address] Jun, [facility] [id number] [place] [address] Jun, COPD with acute exacerbation 491.21 [facility] [id number] [place] [address] Apr, [facility] [address], [place] [address] Feb, [facility] [id number], [place] [address] Feb, [facility] [id number] [place] [address] Jan, [facility] [id number] [place] [address] Jan, [facility] [address], [place] [address] Jan, [facility] [address] [facility] [id number] [place] [address] 2014 [facility] [place] [facility] [address] [id number] [place] [address] 24 Jan, 2015 [facility] [place] [facility] [address] [id number] [place] [address] 23 Jan, 2014 [facility] [place] [facility] [address] [id number] [place] [address] 23 Jan, 2014 [facility] [place] [facility] [address] [id number] [place] [address] 23 Jan, 2015 [facility] [place] [facility] [address] [id number] [place] [address] 23 Jan, 2014 [facility] [place] [facility] [address] [id number] [place] [address] 19 Jan, 2014 [facility] [place] [facility] [address] [id number] [place] [address] 19 Jan, 2014 [facility] [place] [facility] [address] [id number] [place] [address] 18 Jan, 2015 [facility] [place] [facility] [address] [id number] [place] [address] 18 Jan, 2014 [facility] [place] [facility] [address] [id number] [place] [address] 16 Jan, 2014 [facility] [place] [facility] [address] [id number] [place] [address] 16 Jan, 2014 [facility] [place] [facility] [address] [id number] [place] [address] 16 Jan, 2014 [facility] [place] [facility] [address] [id number] [place] [address] 16 Jan, 2014 [facility] [place] [facility] [address] [id number] [place] [address] 15 Jan, 2014 [facility] [place] [facility] [address] [id number] [place] [address] 13 Jan, 2015 [facility] [place] [facility] [address] [id number] [place] [address] 13 Jan, 2015 [facility] [place] [facility] [address] [id number] [place] [address] Jan, [facility] [place] [facility] [address] [id number] [place] [address] Jan, [facility] [place] [facility] [address] [id number] [place] [address] Jan, [facility] [place] [facility] [address] [id number] [place] [address] Jan, [facility] [place] [facility] [address] [id number] [place] [address] Jan, [facility] [place] [facility] [address] [facility] [id number] [place] [address] 24 Dec, 2014 [facility] [place] [facility] [address] [facility] [id number] [place] [address] Dec, 2014 [facility] [place] [facility] [address] [facility] [id number] [place] [address] Dec, 2014 [facility] [place] [facility] [address] [facility] [id number] [place] [address] Dec, 2014 [facility] [place] [facility] [address] [facility] [id number] [place] [address] Dec, 2014 [facility] [place] [facility] [address] [facility] [id number] [place] [address] Dec, 2014 [facility] [place] [facility] [address] [facility] [id number] [place] [address] Dec, 2014 [facility] [place] [facility] [address] [facility] [id number] [place] [address] Dec, 2014 [facility] [place] [facility] [address] [facility] [id number] [place] [address] 19 Dec, 2014 [facility] [place] [facility] [address] [id number] [place] [address] Dec, [facility] [place] [facility] [address] [id number] [place] [address] Dec, [facility] [place] [facility] [address] [id number] [place] [address] Dec, [facility] [place] [facility] [address] [id number] [place] [address] Nov, [facility] [place] [facility] [address] [id number] [place] [address] Nov, [facility] [place] [facility] [address] [id number] [place] [address] Nov, [facility] [place] [facility] [address] [id number] [place] [address] Nov, [facility] [place] [facility] [address] [id number] [place] [address] Nov, [facility] [place] [facility] [address] [id number] [place] [address] Nov, [facility] [place] [facility] [address] [id number] [place] [address] Nov, [facility] [place] [facility] [address] [id number] [place] [address] Nov, [facility] [place] [facility] [address] [id number] [place] [address] Nov, [facility] [place] [facility] [address] [id number] [place] [address] Nov, [facility] [place] [facility] [address] [id number] [place] [address] Nov, [facility] [place] [facility] [address] [id number] [place] [address] Nov, [facility] [place] [facility] [address] [id number] [place] [address] 31 Oct, 2014 [facility] [place] [facility] [address] [id number] [place] [address] 31 Oct, 2014 [facility] [place] [facility] [address] [id number] [place] [address] 30 Oct, 2014 [facility] [place] [facility] [address] [id number] [place] [address] 30 Oct, 2014 [facility] [place] [facility] [address] [id number] [place] [address] 29 Oct, 2014 [facility] [place] [facility] [address] [id number] [place] [address] 29 Oct, 2014 [facility] [place] [facility] [address] [id number] [place] [address] Oct, [facility] [place] [facility] [address] [id number] [place] [address] Oct, [facility] [place] [facility] [address] [id number] [place] [address] 17 Oct, 2014 [facility] [place] [facility] [address] [id number] [place] [address] 17 Oct, 2014 [facility] [place] [facility] [address] [id number] [place] [address] 16 Oct, 2014 [facility] [place] [facility] [address] [id number] [place] [address] 16 Oct, 2014 [facility] [place] [facility] [address] [id number] [place] [address] 15 Oct, 2014 [facility] [place] [facility] [address] [id number] [place] [address] 15 Oct, 2014 [facility] [place] [facility] [address] [id number] [place] [address] 08 Oct, 2014 [facility] [place] [facility] [address] [id number] [place] [address] 24 Sep, 2014 [facility] [place] [facility] [address] [id number] [place] [address] Sep, [facility] [place] [facility] [address] [id number] [place] [address] Sep, [facility] [place] [facility] [address] [id number] [place] [address] Sep, [facility] [place] [facility] [address] [id number] [place] [address] Aug, [facility] [place] [facility] [address] [id number] [place] [address] Aug, [facility] [place] [facility] [address] [id number] [place] [address] Aug, [facility] [place] [facility] [address] [id number] [place] [address] Aug, [facility] [place] [facility] [address] [id number] [place] [address] Aug, [facility] [place] [facility] [address] [id number] [place] [address] Aug, [facility] [place] [facility] [address] [id number] [place] [address] 29 Jul, 2014 [facility] [place] [facility] [address] [id number] [place] [address] 29 Jul, 2014 [facility] [place] [facility] [address] [id number] [place] [address] 15 Jul, 2014 [facility] [place] [facility] [address] [id number] [place] [address] 15 Jul, 2014 [facility] [place] [facility] [address] [id number] [place] [address] 08 Jul, 2014 [facility] [place] [facility] [address] [id number] [place] [address] 08 Jul, 2014 [facility] [place] [facility] [address] [id number] [place] [address] Jun, [facility] [place] [facility] [address] [id number] [place] [address] Jun, [facility] [place] [facility] [address] [id number] [place] [address] Jun, [facility] [place] [facility] [address] [id number] [place] [address] Jun, [facility] [place] [facility] [address] [id number] [place] [address] Jun, [facility] [place] [facility] [address] [id number] [place] [address] Jun, [facility] [place] [facility] [address] [id number] [place] [address] Jun, [facility] [place] [facility] [address] [id number] [place] [address] May, [facility] [place] [facility] [address] [id number] [place] [address] May, [facility] [place] [facility] [address] [id number] [place] [address] May, [facility] [place] [facility] [address] [id number] [place] [address] May, [facility] [place] [facility] [address] [id number] [place] [address] May, [facility] [place] [facility] [address] [id number] [place] [address] May, [facility] [place] [facility] [address] [id number] [place] [address] May, [facility] [place] [facility] [address] [id number] [place] [address] May, [facility] [place] [facility] [address] [id number] [place] [address] May, [facility] [place] [facility] [address] [id number] [place] [address] May, [facility] [place] [facility] [address] [id number] [place] [address] May, [facility] [place] [facility] [address] [id number] [place] [address] May, [facility] [place] [facility] [address] [id number] [place] [address] Apr, [facility] [place] [facility] [address] [id number] [place] [address] Apr, [facility] [place] [facility] [address] [id number] [place] [address] Apr, [facility] [place] [facility] [address] [id number] [place] [address] Apr, [facility] [place] [facility] [address] [id number] [place] [address] Apr, [facility] [place] [facility] [address] [id number] [place] [address] Apr, [facility] [place] [facility] [address] [id number] [place] [address] Apr, [facility] [place] [facility] [address] [id number] [place] [address] Apr, [facility] [place] [facility] [address] [id number] [place] [address] Apr, [facility] [place] [facility] [address] [id number] [place] [address] Apr, [facility] [place] [facility] [address] [id number] [place] [address] March, [facility] [place] [facility] [address] [id number] [place] [address] March, [facility] [place] [facility] [address] [id number] [place] [address] March, [facility] [place] [facility] [address] [id number] [place] [address] March, [facility] [address] [id number] [place] [address] March, [facility] [address] [id number] [place] [address] March, [facility] [address] [id number] [place] [address] Feb, [facility] [address] [id number] [place] [address] Feb, [facility] [address] [id number] [place] [address] Feb, [facility] [address] [id number] [place] [address] Feb, [facility] [address] [id number] [place] [address] Feb, [facility] [facility] [address] [id number] [place] [address] Feb, [facility] [facility] [address] [id number] [place] [address] Feb, [facility] [address] [id number] [place] [address] Feb, [facility] [facility] [address] [id number] [place] [address] Feb, [facility] [address] [id number] [place] [address] Feb, [facility] [address] [id number] [place] [address] Jan, [facility] [address] [id number] [place] [address] Jan, [facility] [facility] [address] [id number] [place] [address] Jan, [facility] [facility] [address] [id number] [place] [address] Jan, [facility] [place] [facility] [address] [id number] [place] [address] Jan, [facility] [place] [facility] [address] [id number] [place] [address] Jan, [facility] [place] [facility] [address] [id number] [place] [address] Jan, [facility] [place] [facility] [address] [id number] [place] [address] Jan, [facility] [place] [facility] [address] [id number] [place] [address] Dec, [facility] [place] [facility] [address] [id number] [place] [address] Dec, [facility] [place] [facility] [address] [id number] [place] [address] Dec, [facility] [place] [facility] [address] [id number] [place] [address] Dec, [facility] [place] [facility] [address] [id number] [place] [address] Dec, [facility] [place] [facility] [address] [id number] [place] [address] Dec, [facility] [place] [facility] [address] [id number] [place] [address] Dec, [facility] [place] [facility] [address] [id number] [place] [address] Dec, [facility] [place] [facility] [address] [id number] [place] [address] Nov, [facility] [facility] [address] [id number] [place] [address] Nov, [facility] [facility] [address] [id number] [place] [address] Nov, [facility] [address] [id number] [place] [address] Nov, [facility] [facility] [address] [id number] [place] [address] Nov, [facility] [address] [id number] [place] [address] Nov, [facility] [facility] [address] [id number] [place] [address] Nov, [facility] [address] [id number] [place] [address] Nov, [facility] [address] [id number] [place] [address] Nov, [facility] [address] [id number] [place] [address] Nov, [facility] [address] [id number] [place] [address] Nov, [facility] [address] [id number] [place] [address] Oct, [facility] [address] [id number] [place] [address] Oct, [facility] [address] [id number] [place] [address] Oct, [facility] [address] [id number] [place] [address] Oct, [facility] [address] [id number] [place] [address] Sep, [facility] [address] [id number] [place] [address] Sep, [facility] [address] [id number] [place] [address] Sep, [facility] [facility] [address] [id number] [place] [address] Sep, [facility] [facility] [address] [id number] [place] [address] Aug, [facility] [facility] [address] [id number] [place] [address] Aug, [facility] [facility] [address] [id number] [place] [address] Aug, [facility] [place] [facility] [address] [id number] [place] [address] Aug, [facility] [address] [id number] [place] [address] Aug, [facility] [facility] [address] [id number] [place] [address] Aug, [facility] [facility] [address] [id number], [place] [address] Aug, [facility] [address] [id number] [place] [address] Aug, [facility] [facility] [address] [id number], [place] [address] 28 Jul, 2013 [facility] [facility] [address] [id number], [place] [address] 27 Jul, 2013 [facility] [address] [id number], [place] [address] 26 Jul, 2013 [facility] [address] [id number] [place] [address] 24 Jul, 2013 [facility] [address] [id number], [place] [address] 24 Jul, 2013 [facility] [facility] [address] [id number] [place] [address] 23 Jul, 2013 [facility] [facility] [address] [id number] [place] [address] 19 Jul, 2012 [facility] [facility] [address] [id number] [place] [address] 18 Sep, 2012 [facility] [facility] [address] [id number] [place] [address] 17 Jul, 2012 [facility] [address] [id number] [place] [address] 16 Jul, 2012 [facility] [address] [id number] [place] [address] 13 Jul, 2012 [facility] [address] [id number] [place] [address] 13 Jul, 2012 [facility] [address] [id number] [place] [address] 12 Jul, 2012 [facility] [address] [id number] [place] [address] 11 Jul, 2012 [facility] [facility] [address] [id number] [place] [address] 04 Jul, 2013 [facility] [facility] [address] [id number] [place] [address] 30 Jun, 2013 [facility] [address] [id number] [place] [address] Jun, [facility] [facility] [address] [id number] [place] [address] Jun, [facility] [facility] [address] [id number] [place] [address] May, [facility] [address] [id number] [place] [address] May, [facility] [address] [id number] [place] [address] May, [facility] [address] [id number] [place] [address] May, [facility] [address] [id number] [place] [address] Apr, [facility] [address] [id number] [place] [address] Apr, [facility] [address] [id number] [place] [address] Apr, [facility] [address] [id number] [place] [address] Apr, [facility] [address] [id number] [place] [address] March, [facility] [address] [id number] [place] [address] March, [facility] [address] [id number] [place] [address] March, [facility] [address] [id number] [place] [address] Feb, [facility] [address] [id number] [place] [address] Feb, [facility] [address] [id number] [place] [address] Jan, [facility] [address] [id number] [place] [address] Jan, [facility] [address] [id number] [place] [address] Jan, [facility] [address] [id number] [place] [address] Jan, [facility] [address] [id number] [place] [address] Jan, [facility] [address] [id number] [place] [address] Dec, [facility] [address] [id number] [place] [address] Dec, [facility] [address] [id number] [place] [address] Dec, [facility] [address] [id number] [place] [address] Dec, [facility] [address] [id number] [place] [address] Dec, [facility] [address] [id number] [place] [address] Dec, [facility] [address] [id number] [place] [address] Dec, [facility] [address] [id number] [place] [address] Dec, [facility] [address] [id number] [place] [address] Nov, [facility] [address] [id number] [place] [address] Nov, [facility] [address] [id number] [place] [address] Nov, [facility] [address] [facility] [id number] [place] [address] Nov, [facility] [address] [id number] [place] [address] Nov, [facility] [address] [id number], [place] [address] Nov, [facility] [address] [id number] [place] [address] Nov, [facility] [address] [id number] [place] [address] Oct, [facility] [address] [id number], [place] [address] Oct, [facility] [facility] [address] [id number] [place] [address] Oct, [facility] [facility] [address] [id number] [place] [address] Oct, [facility] [facility] [address] [id number] [place] [address] Oct, [facility] [facility] [address] [id number] [place] [address] Oct, [facility] [facility] [address] [id number] [place] [address] Oct, [facility] [facility] [address] [id number] [place] [address] Oct, [facility] [place] [facility] [address] [id number] [place] [address] Sep, [facility] [place] [facility] [address] [id number] [place] [address] Sep, [facility] [facility] [address] [id number] [place] [address] Sep, [facility] [place] [facility] [address] [id number] [place] [address] Sep, [facility] [place] [facility] [address] [id number] [place] [address] Sep, [facility] [place] [facility] [address] [id number] [place] [address] Sep, [facility] [place] [facility] [address] [id number] [place] [address] Sep, [facility] [place] [facility] [address] [id number] [place] [address] Sep, [facility] [place] [facility] [address] [id number] [place] [address] Sep, [facility] [facility] [address] [id number] [place] [address] Sep, [facility] [facility] [address] [id number] [place] [address] Sep, [facility] [place] [facility] [address] [id number] [place] [address] Sep, [facility] [place] [facility] [address] [facility] [id number] [place] [address] Sep, [facility] [place] [facility] [address] [id number] [place] [address] Sep, [facility] [place] [facility] [address] [id number] [place] [address] Sep, [facility] [place] [facility] [address] [facility] [id number] [place] [address] Sep, [facility] [place] [facility] [address] [facility] [id number] [place] [address] Sep, [facility] [place] [facility] [address] [id number], [place] [address] Sep, [facility] [facility] [address] [id number], [place] [address] Sep, [facility] [place] [facility] [address] [facility] [id number], [place] [address] Sep, [facility] [place] [facility] [address] [id number], [place] [address] Aug, [facility] [place] [facility] [address] [id number], [place] [address] Aug, [facility] [facility] [address] [id number], [place] [address] Aug, [facility] [facility] [address] [facility] [id number], [place] [address] Aug, [facility] [place] [facility] [address] [facility] [id number], [place] [address] Aug, [facility] [place] [facility] [address] [id number] [place] [address] 18 Aug, 2011 [facility] [place] [facility] [address] [id number] [place] [address] 18 Aug, 2012 [facility] [place] [facility] [address] [id number] [place] [address] 17 Aug, 2012 [facility] [place] [facility] [address] [id number] [place] [address] 16 Aug, 2012 [facility] [place] [facility] [address] [id number] [place] [address] 16 Aug, 2012 [facility] [place] [facility] [address] [id number] [place] [address] 15 Aug, 2012 [facility] [place] [facility] [address] [id number] [place] [address] 09 Aug, 2012 [facility] [place] [facility] [address] [id number] [place] [address] 05 Aug, 2012 [facility] [place] [facility] [address] [id number] [place] [address] 05 Aug, 2012 [facility] [place] [facility] [address] [id number] [place] [address] 04 Aug, 2012 [facility] [place] [facility] [address] [id number] [place] [address] 14 Jul, 2012 [facility] [place] [facility] [address] [id number] [place] [address] 10 Jul, 2012 [facility] [place] [facility] [address] [id number] [place] [address] Jun, [facility] [place] [facility] [address] [id number] [place] [address] Jun, [facility] [place] [facility] [address] [id number] [place] [address] May, [facility] [place] [facility] [address] [id number] [place] [address] May, [facility] [place] [facility] [address] [id number] [place] [address] May, [facility] [place] [facility] [address] [id number] [place] [address] May, [facility] [place] [facility] [address] [id number] [place] [address] May, [facility] [place] [facility] [address] [id number] [place] [address] May, [facility] [address] [id number] [place] [address] Apr, [facility] [place] [facility] [address] [id number] [place] [address] Apr, [facility] [address] [id number] [place] [address] March, [facility] [address] [id number] [place] [address] March, [facility] [address] [id number] [place] [address] March, [facility] [address] [id number] [place] [address] March, [facility] [place] [facility] [address] [id number] [place] [address] March, [facility] [place] [facility] [address] [id number] [place] [address] March, [facility] [place] [facility] [address] [id number] [place] [address] Feb, [facility] [place] [facility] [address] [id number] [place] [address] Feb, [facility] [place] [facility] [address] [id number] [place] [address] Feb, [facility] [place] [facility] [address] [id number] [place] [address] 25 Feb, 2012 [facility] [address] [id number] [place] [address] 23 Feb, 2012 [facility] [place] [facility] [address] [id number] [place] [address] Feb, [facility] [place] [facility] [address] [id number] [place] [address] Feb, [facility] [place] [facility] [address] [id number] [place] [address] Feb, [facility] [place] [facility] [address] [id number] [place] [address] Feb, [facility] [place] [facility] [address] [id number] [place] [address] 30 Jan, 2012 [facility] [place] [facility] [address] [id number] [place] [address] 27 Jan, 2012 [facility] [place] [facility] [address] [id number] [place] [address] Jan, [facility] [place] [facility] [address] [id number] [place] [address] 22 Jan, 2012 [facility] [place] [facility] [address] [id number] [place] [address] Jan, [facility] [place] [facility] [address] [id number] [place] [address] Jan, [facility] [place] [facility] [address] [id number] [place] [address] 14 Jan, 2012 [facility] [place] [facility] [address] [id number] [place] [address] 09 Jan, 2012 [facility] [place] [facility] [address] [id number] [place] [address] 09 Jan, 2012 [facility] [place] [facility] [address] [id number] [place] [address] 08 Jan, 2012 [facility] [place] [facility] [address] [id number] [place] [address] 07 Jan, 2012 [facility] [place] [facility] [address] [id number] [place] [address] Jan, [facility] [place] [facility] [address] [id number] [place] [address] Jan, [facility] [place] [facility] [address] [id number] [place] [address] Jan, [facility] [place] [facility] [address] [id number] [place] [address] Dec, [facility] [place] [facility] [address] [id number] [place] [address] Dec, [facility] [place] [facility] [address] [facility] [id number] [place] [address] Dec, [facility] [place] [facility] [address] [id number] [place] [address] Dec, [facility] [place] [facility] [address] [id number] [place] [address] 16 Dec, 2011 [facility] [place] [facility] [address] [facility] [id number] [place] [address] Dec, [facility] [place] [facility] [address] [facility] [id number] [place] [address] Dec, [facility] [place] [facility] [address] [id number], [place] [address] Dec, [facility] [place] [facility] [address] [id number] [place] [address] Dec, [facility] [place] [facility] [address] [id number] [place] [address] Nov, [facility] [place] [facility] [address] [id number] [place] [address] Nov, [facility] [place] [facility] [address] [id number], [place] [address] Nov, [facility] [address] [id number] [place] [address] Nov, [facility] [place] [facility] [address] [id number] [place] [address] Oct, [facility] [place] [facility] [address] [id number] [place] [address] Oct, [facility] [place] [facility] [address] [id number] [place] [address] Oct, [facility] [place] [facility] [address] [id number] [place] [address] Oct, [facility] [place] [facility] [address] [id number] [place] [address] Oct, [facility] [place] [facility] [address] [facility] [id number] [place] [address] Oct, [facility] [place] [facility] [address] [id number] [place] [address] Oct, [facility] [place] [facility] [address] [id number] [place] [address] Sep, [facility] [place] [facility] [address] [facility] [id number] [place] [address] Sep, [facility] [place] [facility] [address] [id number] [place] [address] Sep, [facility] [place] [facility] [address] [id number] [place] [address] Sep, [facility] [place] [facility] [address] [id number] [place] [address] Sep, [facility] [place] [facility] [address] [facility] [id number] [place] [address] Sep, [facility] [place] [facility] [address] [facility] [id number] [place] [address] Sep, [facility] [place] [facility] [address] [id number] [place] [address] Sep, [facility] [place] [facility] [address] [id number] [place] [address] Sep, [facility] [place] [facility] [address] [id number] [place] [address] Aug, [facility] [place] [facility] [address] [id number] [place] [address] Aug, [facility] [place] [facility] [address] [id number] [place] [address] Aug, [facility] [place] [facility] [address] [id number] [place] [address] May, [facility] [place] [facility] [address] [id number] [place] [address] Nov, [facility] [place] [facility] [address] [id number] [place] [address] Oct, [facility] [place] [facility] [address] [id number] [place] [address] Oct, [facility] [place] [facility] [address] [id number] [place] [address] Oct, [facility] [place] [facility] [address] [facility] [id number] [place] [address] Oct, [facility] [place] [facility] [address] [id number] [place] [address] Oct, [facility] [place] [facility] [address] [id number] [place] [address] Sep, [facility] [place] [facility] [address] [id number] [place] [address] Sep, [facility] [place] [facility] [address] [id number] [place] [address] 14 Jul, 2010 [facility] [place] [facility] [address] [id number] [place] [address] Oct, [facility] [address] [facility] [id number], [place] [address] Oct, [facility] [address] [facility] [id number], [place] [address] Oct, [facility] [address] [facility] [id number], [place] [address] Oct, [facility] [address] [facility] [id number], [place] [address] Sep, [facility] [address] [facility] [id number], [place] [address] Sep, [facility] [address] [facility] [id number], [place] [address] Sep, [facility] [id number], [place] [address] Sep, [facility] [id number], [place] [address] Sep, [facility] [address] [facility] [id number], [place] [address] Jul, [facility] [id number], [place] [address] Apr, [facility] [address] [id number], [place] [address] Dec, IMMUNIZATIONS No Known Immunizations SOCIAL HISTORY Never Assessed REASON FOR VISIT [facility] PLAN OF CARE VITAL SIGNS MEDICATIONS [...]
--- OUTSIDE RECORDS SUMMARY | 2019-06-14 11:27 | XMS REPORT ---
Author Author Migration, Doctor Organization [facility] Address Unknown Phone Unavailable Care Team Providers Care Fisher Line Name Role Phone Migration, Doctor Unavailable Unavailable PROBLEMS Type Condition ICD9-CM Code RYR27-TZ Code Onset Dates Condition Status SNOMED Code Problem Essential hypertension I10 Active 15087551 Problem Prediabetes R73.03 Active 643531100 Problem Reactive depression F32.9 Active 25164078 Problem Acquired hypothyroidism E03.9 Active 007528922 Problem Gastroesophageal reflux disease, esophagitis presence not specified K21.9 Active 395965875 Problem Mixed hyperlipidemia E78.2 Active 128318238 Problem Other chronic pain G89.29 Active 49336940 Problem Chronic obstructive pulmonary disease, unspecified COPD type J44.9 Active 63270057 Problem Cigarette nicotine dependence without complication F17.210 Active 73612927 Problem Sinusitis J32.9 Active 09796195 Problem Lumbago with sciatica, right side M54.41 Active [id number] Problem Chronic pain G89.29 Active 83548874 Problem Lumbago with sciatica, left side M54.42 Active 713259068 Problem DM neuro manif type II E11.49 Active 93710031 Problem Seizures R56.9 Active 04256055 Problem Iron deficiency anemia due to chronic blood loss D50.0 Active 249991003 Problem Seasonal allergies J30.2 Active 003131563 ALLERGIES No Information ENCOUNTERS Encounter Location Date Diagnosis [facility] [address] [address] Feb, [facility] [id number] [place] [address] Jan, [facility] [id number] [place] [address] Jan, Acute cystitis with hematuria N30.01 and Dysuria R30.0 [facility] [id number] [place] [address] Jan, [facility] [id number], [place] [address] Dec, [facility] [address], [place] [address] Dec, [facility] [address], [place] [address] Dec, [facility] [id number] [place] [address] Dec, [facility] [id number] [place] [address] Dec, Routine adult health maintenance Z00.00 ; Chronic obstructive pulmonary disease, unspecified COPD type J44.9 and Encounter for immunization Z23 [facility] [address], [place] [address] Nov, [facility] [address], [place] [address] Nov, UTI (urinary tract infection) N39.0 and Other chronic pain G89.29 [facility] [address], [place] [address] Nov, [facility] [address], [place] [address] Nov, [facility] [id number], [place] [address] Nov, Painful urination R30.9 and UTI (urinary tract infection) N39.0 [facility] [address], [place] [address] Nov, [facility] [id number], [place] [address] Nov, UTI (urinary tract infection) N39.0 [facility] [address], [place] [address] Nov, Dysuria R30.0 ; UTI (urinary tract infection) N39.0 and Chronic pain G89.29 [facility] [id number] [place] [address] Nov, [facility] [id number] [place] [address] Oct, Cough R05 [facility] [address] [address] Oct, Sinusitis J32.9 [facility] [id number] [place] [address] Oct, [facility] [id number] [place] [address] Oct, UTI (urinary tract infection) N39.0 and URI (upper respiratory infection) J06.9 [facility] [id number] [place] [address] Sep, Pain in thoracic spine M54.6 [facility] [id number] [place] [address] Sep, Type 2 diabetes mellitus with hyperglycemia E11.65 [facility] [id number] [place] [address] Sep, Chronic obstructive pulmonary disease, unspecified COPD type J44.9 ; Abrasion of right ear canal, initial encounter S00.411A ; Cigarette nicotine dependence without complication F17.210 ; Right leg pain M79.604 and Seasonal allergies J30.2 [facility] [id number] [place] [address] Aug, [facility] [id number] [place] [address] Aug, [facility] [id number] [place] [address] Aug, Pain in thoracic spine M54.6 [facility] [address] [address] Aug, [facility] [address] [address] Aug, Chronic obstructive pulmonary disease, unspecified COPD type J44.9 ; Complete amputation of right foot, 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 ; Cigarette nicotine dependence without complication F17.210 and BMI 40.0-44.9, adult Z68.41 [place] [address] [address] Jul, [facility] [address] [address] Jul, [facility] [address] [address] Jul, Onychomycosis B35.1 ; Onychocryptosis L60.0 and DM neuro manif type II E11.49 [facility] [place] [address] [address] Jun, Pain in thoracic spine M54.[address] [address] Jun, Iron deficiency anemia due to chronic blood loss D50.0 and Hematochezia K92.[address] [address] Jun, Gastroenteritis K52.9 and Abnormal RBC indices R71.8 [place] [address] [address] Jun, [facility] [address] [address] Jun, Chest congestion R09.89 and Seizures R56.[address] [address] May, Pain in thoracic spine M54.[address] [place] [address] May, [facility] [id number] [place] [address] May, [facility] [id number] [place] [address] May, [facility] [id number] [place] [address] May, Acute non-recurrent frontal sinusitis J01.10 and Dermatitis L30.9 [facility] [id number] [place] [address] May, [facility] [id number] [place] [address] May, Pain in thoracic spine M54.6 [facility] [id number] [place] [address] May, [facility] [id number] [place] [address] May, Acute nasopharyngitis J00 [facility] [id number] [place] [address] May, [facility] [id number] [place] [address] May, [facility] [id number] [place] [address] Apr, [facility] [id number] [place] [address] Apr, [facility] [id number] [place] [address] Apr, [facility] [id number] [place] [address] Apr, [facility] [address] [place] [address] Apr, Pain in right ankle and joints of right foot M25.571 [facility] [id number] [place] [address] Apr, [facility] [id number] [place] [address] Apr, Bronchitis J40 ; Pain in right ankle and joints of right foot M25.571 ; Other chronic pain G89.29 ; Prediabetes R73.03 ; Chronic obstructive pulmonary disease, unspecified COPD type J44.9 and Cigarette nicotine dependence without complication F17.210 [facility] [id number] [place] [address] 13 Apr, 2018 Seasonal allergic rhinitis, unspecified trigger J30.2 [facility] [place] [id number] [place] [address] 08 Apr, 2018 Onychomycosis B35.1 ; Onychocryptosis L60.0 and DM neuro manif type II E11.49 [facility] [id number] [place] [address] Apr, Reactive depression F32.9 ; Thoracic myofascial strain, initial encounter S29.019A and Leg cramps R25.2 [facility] [id number] [place] [address] March, [facility] [id number] [place] [address] March, Type 2 diabetes mellitus with hyperglycemia E11.65 [facility] [id number] [place] [address] March, Reactive depression F32.9 [place] [id number] [place] [address] March, Pain in thoracic spine M54.6 and Other chronic pain G89.29 [facility] [id number] [place] [address] Feb, [place] [address] [address] Jan, Reactive depression F32.9 ; Essential hypertension I10 ; Gastroesophageal reflux disease, esophagitis presence not specified K21.9 ; Lumbago with sciatica, left side M54.42 and Lumbago with sciatica, right side M54.41 [place] [address] [address] Jan, Reactive depression F32.9 and Pharyngoesophageal dysphagia R13.14 [place] [address] [address] Jan, [address] [address] Jan, Encounter for immunization Z23 [address] [address] Jan, Onychomycosis B35.1 and DM neuro manif type II E11.49 [place] [address] [address] Jan, [place] [address] [address] Jan, Prediabetes R73.[address] [address] Dec, [facility] [address] [address] Dec, Essential hypertension I10 ; Mixed hyperlipidemia E78.2 ; Acquired hypothyroidism E03.9 ; Reactive depression F32.9 and Prediabetes R73.03 [place] [address] [address] Dec, [place] [address] [address] Dec, [place] [id number] Dec, DM neuro manif type II E11.49 [facility] [address], [place] [address] Dec, Bruise T14.8XXA ; Type 2 diabetes mellitus with hyperglycemia E11.65 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 [facility] [id number] [place] [address] Oct, [facility] [id number] [place] [address] March, Onychomycosis B35.1 and DM neuro manif type II E11.49 [facility] [id number] [place] [address] Jun, [facility] [id number] [place] [address] Jun, [facility] [id number] [place] [address] Jun, COPD with acute exacerbation 491.21 [facility] [id number] [place] [address] Apr, [facility] [id number] [place] [address] Feb, [facility] [address], [place] [address] Feb, [facility] [id number] [place] [address] Jan, [facility] [id number] [place] [address] Jan, [facility] [id number] [place] [address] Jan, [facility] [address], [place] [address] Jan, [facility] [address] [facility] [id number] [place] [address] 24 Jan, 2014 [facility] [place] [facility] [address] [id number] [place] [address] 23 Jan, 2014 [facility] [place] [facility] [address] [id number] [place] [address] 23 Jan, 2014 [facility] [place] [facility] [address] [id number] [place] [address] 23 Jan, 2014 [facility] [place] [facility] [address] [id number] [place] [address] 23 Jan, 2014 [facility] [place] [facility] [address] [id number] [place] [address] 19 Jan, 2014 [facility] [place] [facility] [address] [id number] [place] [address] 19 Jan, 2014 [facility] [place] [facility] [address] [id number] [place] [address] 18 Jan, 2014 [facility] [place] [facility] [address] [id number] [place] [address] 18 Jan, 2015 [facility] [place] [facility] [address] [id number] [place] [address] 16 Jan, 2014 [facility] [place] [facility] [address] [id number] [place] [address] 16 Jan, 2014 [facility] [place] [facility] [address] [id number] [place] [address] 16 Jan, 2014 [facility] [place] [facility] [address] [id number] [place] [address] 16 Jan, 2014 [facility] [place] [facility] [address] [id number] [place] [address] 15 Jan, 2014 [facility] [place] [facility] [address] [id number] [place] [address] 13 Jan, 2014 [facility] [place] [facility] [address] [id number] [place] [address] 13 Jan, 2015 [facility] [place] [facility] [address] [id number] [place] [address] 13 Jan, 2015 [facility] [place] [facility] [address] [id number] [place] [address] Jan, [facility] [place] [facility] [address] [facility] [id number] [place] [address] Jan, [facility] [place] [facility] [address] [id number] [place] [address] Jan, [facility] [place] [facility] [address] [id number] [place] [address] Jan, [facility] [place] [facility] [address] [id number] [place] [address] 24 Dec, 2014 [facility] [place] [facility] [address] [facility] [id number] [place] [address] Dec, [facility] [place] [facility] [address] [facility] [id number] [place] [address] Dec, [facility] [place] [facility] [address] [facility] [id number] [place] [address] Dec, [facility] [place] [facility] [address] [facility] [id number] [place] [address] Dec, 2014 [facility] [place] [facility] [address] [facility] [id number] [place] [address] Dec, 2014 [facility] [place] [facility] [address] [facility] [id number] [place] [address] Dec, 2014 [facility] [place] [facility] [address] [facility] [id number] [place] [address] Dec, 2014 [facility] [place] [facility] [address] [facility] [id number] [place] [address] Dec, 2014 [facility] [place] [facility] [address] [facility] [id number] [place] [address] Dec, 2014 [facility] [place] [facility] [address] [id number] [place] [address] Dec, [facility] [place] [facility] [address] [id number] [place] [address] Dec, [facility] [place] [facility] [address] [id number] [place] [address] Nov, [facility] [place] [facility] [address] [id number] [place] [address] Nov, [facility] [place] [facility] [address] [id number] [place] [address] Nov, [facility] [place] [facility] [address] [id number] [place] [address] Nov, [facility] [place] [facility] [address] [id number] [place] [address] Nov, [facility] [place] [facility] [address] [id number] [place] [address] Nov, [facility] [place] [facility] [address] [id number] [place] [address] Nov, [facility] [place] [facility] [address] [id number] [place] [address] Nov, [facility] [place] [facility] [address] [id number] [place] [address] Nov, [facility] [place] [facility] [address] [id number] [place] [address] Nov, [facility] [place] [facility] [address] [id number] [place] [address] Nov, [facility] [place] [facility] [address] [id number] [place] [address] Nov, [facility] [place] [facility] [address] [id number] [place] [address] Oct, [facility] [place] [facility] [address] [id number] [place] [address] 31 Oct, 2014 [facility] [place] [facility] [address] [id number] [place] [address] 30 Oct, 2014 [facility] [place] [facility] [address] [id number] [place] [address] 30 Oct, 2014 [facility] [place] [facility] [address] [id number] [place] [address] 29 Oct, 2014 [facility] [place] [facility] [address] [id number] [place] [address] 29 Oct, 2014 [facility] [place] [facility] [address] [id number] [place] [address] Oct, [facility] [place] [facility] [address] [id number] [place] [address] Oct, [facility] [place] [facility] [address] [id number] [place] [address] 17 Oct, 2014 [facility] [place] [facility] [address] [id number] [place] [address] 17 Oct, 2014 [facility] [place] [facility] [address] [id number] [place] [address] 16 Oct, 2014 [facility] [place] [facility] [address] [id number] [place] [address] 16 Oct, 2014 [facility] [place] [facility] [address] [id number] [place] [address] 15 Oct, 2014 [facility] [place] [facility] [address] [id number] [place] [address] 15 Oct, 2014 [facility] [place] [facility] [address] [id number] [place] [address] 08 Oct, 2014 [facility] [place] [facility] [address] [id number] [place] [address] 24 Sep, 2014 [facility] [place] [facility] [address] [id number] [place] [address] Sep, [facility] [place] [facility] [address] [id number] [place] [address] Sep, [facility] [place] [facility] [address] [id number] [place] [address] Sep, [facility] [place] [facility] [address] [id number] [place] [address] Aug, [facility] [place] [facility] [address] [id number] [place] [address] Aug, [facility] [place] [facility] [address] [id number] [place] [address] Aug, [facility] [place] [facility] [address] [id number] [place] [address] Aug, [facility] [place] [facility] [address] [id number] [place] [address] Aug, [facility] [place] [facility] [address] [id number] [place] [address] Aug, [facility] [place] [facility] [address] [id number] [place] [address] 29 Jul, 2014 [facility] [place] [facility] [address] [id number] [place] [address] 29 Jul, 2014 [facility] [place] [facility] [address] [id number] [place] [address] 15 Jul, 2014 [facility] [place] [facility] [address] [id number] [place] [address] 15 Jul, 2014 [facility] [place] [facility] [address] [id number] [place] [address] 08 Jul, 2014 [facility] [place] [facility] [address] [id number] [place] [address] 08 Jul, 2014 [facility] [place] [facility] [address] [id number] [place] [address] Jun, [facility] [place] [facility] [address] [id number] [place] [address] Jun, [facility] [place] [facility] [address] [id number] [place] [address] Jun, [facility] [place] [facility] [address] [id number] [place] [address] Jun, [facility] [place] [facility] [address] [id number] [place] [address] Jun, [facility] [place] [facility] [address] [id number] [place] [address] Jun, [facility] [place] [facility] [address] [id number] [place] [address] Jun, [facility] [place] [facility] [address] [id number] [place] [address] May, [facility] [place] [facility] [address] [id number] [place] [address] May, [facility] [place] [facility] [address] [id number] [place] [address] May, [facility] [place] [facility] [address] [id number] [place] [address] May, [facility] [place] [facility] [address] [id number] [place] [address] May, [facility] [place] [facility] [address] [id number] [place] [address] May, [facility] [place] [facility] [address] [id number] [place] [address] May, [facility] [place] [facility] [address] [id number] [place] [address] May, [facility] [place] [facility] [address] [id number] [place] [address] May, [facility] [place] [facility] [address] [id number] [place] [address] May, [facility] [place] [facility] [address] [id number] [place] [address] May, [facility] [place] [facility] [address] [id number] [place] [address] May, [facility] [place] [facility] [address] [id number] [place] [address] Apr, [facility] [place] [facility] [address] [id number] [place] [address] Apr, [facility] [place] [facility] [address] [id number] [place] [address] Apr, [facility] [place] [facility] [address] [id number] [place] [address] Apr, [facility] [place] [facility] [address] [id number] [place] [address] Apr, [facility] [place] [facility] [address] [id number] [place] [address] Apr, [facility] [place] [facility] [address] [id number] [place] [address] Apr, [facility] [place] [facility] [address] [id number] [place] [address] Apr, [facility] [place] [facility] [address] [id number] [place] [address] Apr, [facility] [place] [facility] [address] [id number] [place] [address] Apr, [facility] [place] [facility] [address] [id number] [place] [address] March, [facility] [place] [facility] [address] [id number] [place] [address] March, [facility] [place] [facility] [address] [id number] [place] [address] March, [facility] [place] [facility] [address] [id number] [place] [address] March, [facility] [place] [facility] [address] [id number] [place] [address] March, [facility] [place] [facility] [address] [id number] [place] [address] March, [facility] [place] [facility] [address] [id number] [place] [address] Feb, [facility] [place] [facility] [address] [id number] [place] [address] Feb, [facility] [place] [facility] [address] [id number] [place] [address] Feb, [facility] [place] [facility] [address] [id number] [place] [address] Feb, [facility] [place] [facility] [address] [id number] [place] [address] Feb, [facility] [place] [facility] [address] [id number] [place] [address] Feb, [facility] [place] [facility] [address] [id number] [place] [address] Feb, [facility] [place] [facility] [address] [id number] [place] [address] Feb, [facility] [place] [facility] [address] [id number] [place] [address] Feb, [facility] [place] [facility] [address] [id number] [place] [address] Feb, [facility] [place] [facility] [address] [id number] [place] [address] Jan, [facility] [place] [facility] [address] [id number] [place] [address] Jan, [facility] [place] [facility] [address] [id number] [place] [address] Jan, [facility] [place] [facility] [address] [id number] [place] [address] Jan, [facility] [place] [facility] [address] [id number] [place] [address] Jan, [facility] [place] [facility] [address] [id number] [place] [address] Jan, [facility] [place] [facility] [address] [id number] [place] [address] Jan, [facility] [place] [facility] [address] [id number] [place] [address] Jan, [facility] [place] [facility] [address] [id number] [place] [address] Dec, [facility] [place] [facility] [address] [id number] [place] [address] Dec, [facility] [place] [facility] [address] [id number] [place] [address] Dec, [facility] [place] [facility] [address] [id number] [place] [address] Dec, [facility] [place] [facility] [address] [id number] [place] [address] Dec, [facility] [place] [facility] [address] [id number] [place] [address] Dec, [facility] [place] [facility] [address] [id number] [place] [address] Dec, [facility] [place] [facility] [address] [id number] [place] [address] Dec, [facility] [place] [facility] [address] [id number] [place] [address] Nov, [facility] [place] [facility] [address] [id number] [place] [address] Nov, [facility] [place] [facility] [address] [id number] [place] [address] Nov, [facility] [place] [facility] [address] [id number] [place] [address] Nov, [facility] [place] [facility] [address] [id number] [place] [address] Nov, [facility] [place] [facility] [address] [id number] [place] [address] Nov, [facility] [place] [facility] [address] [id number] [place] [address] Nov, [facility] [place] [facility] [address] [id number] [place] [address] Nov, [facility] [place] [facility] [address] [id number] [place] [address] Nov, [facility] [place] [facility] [address] [id number] [place] [address] Nov, [facility] [place] [facility] [address] [id number] [place] [address] Nov, [facility] [address] [id number] [place] [address] Oct, [facility] [place] [facility] [address] [id number] [place] [address] Oct, [facility] [place] [facility] [address] [id number] [place] [address] Oct, [facility] [place] [facility] [address] [id number] [place] [address] Oct, [facility] [place] [facility] [address] [id number] [place] [address] Sep, [facility] [place] [facility] [address] [id number] [place] [address] Sep, [facility] [place] [facility] [address] [id number] [place] [address] Sep, [facility] [place] [facility] [address] [id number] [place] [address] Sep, [facility] [place] [facility] [address] [id number] [place] [address] Aug, [facility] [place] [facility] [address] [id number] [place] [address] Aug, [facility] [place] [facility] [address] [id number] [place] [address] Aug, [facility] [place] [facility] [address] [id number] [place] [address] Aug, [facility] [place] [facility] [address] [id number] [place] [address] Aug, [facility] [place] [facility] [address] [id number] [place] [address] Aug, [facility] [place] [facility] [address] [id number] [place] [address] Aug, [facility] [place] [facility] [address] [id number], [place] [address] Aug, [facility] [place] [facility] [address] [id number] [place] [address] 28 Jul, 2013 [facility] [place] [facility] [address] [id number], [place] [address] 27 Jul, 2013 [facility] [place] [facility] [address] [id number], [place] [address] 26 Jul, 2012 [facility] [place] [facility] [address] [id number], [place] [address] 24 Jul, 2012 [facility] [place] [facility] [address] [id number] [place] [address] 24 Jul, 2012 [facility] [place] [facility] [address] [id number], [place] [address] 23 Jul, 2012 [facility] [place] [facility] [address] [id number], [place] [address] 19 Jul, 2012 [facility] [place] [facility] [address] [id number] [place] [address] 18 Sep, 2012 [facility] [place] [facility] [address] [id number] [place] [address] 17 Sep, 2012 [facility] [place] [facility] [address] [id number] [place] [address] 16 Jul, 2012 [facility] [place] [facility] [address] [id number] [place] [address] 13 Jul, 2012 [facility] [place] [facility] [address] [id number] [place] [address] 13 Jul, 2012 [facility] [place] [facility] [address] [id number] [place] [address] 12 Jul, 2012 [facility] [place] [facility] [address] [id number] [place] [address] 11 Jul, 2012 [facility] [place] [facility] [address] [id number] [place] [address] 04 Jul, 2012 [facility] [place] [facility] [address] [id number] [place] [address] 30 Jun, 2013 [facility] [place] [facility] [address] [id number] [place] [address] Jun, [facility] [place] [facility] [address] [id number] [place] [address] Jun, [facility] [place] [facility] [address] [id number] [place] [address] May, [facility] [place] [facility] [address] [id number] [place] [address] May, [facility] [place] [facility] [address] [id number] [place] [address] May, [facility] [place] [facility] [address] [id number] [place] [address] May, [facility] [place] [facility] [address] [id number] [place] [address] Apr, [facility] [place] [facility] [address] [id number] [place] [address] Apr, [facility] [address] [id number] [place] [address] Apr, [facility] [place] [facility] [address] [id number] [place] [address] Apr, [facility] [address] [id number] [place] [address] March, [facility] [place] [facility] [address] [id number] [place] [address] March, [facility] [address] [id number] [place] [address] March, [facility] [address] [id number] [place] [address] Feb, [facility] [address] [id number] [place] [address] Feb, [facility] [address] [id number] [place] [address] Jan, [facility] [address] [id number] [place] [address] Jan, [facility] [address] [id number] [place] [address] Jan, [facility] [address] [id number] [place] [address] Jan, [facility] [address] [id number] [place] [address] Jan, [facility] [place] [facility] [address] [id number] [place] [address] Dec, [facility] [place] [facility] [address] [id number] [place] [address] Dec, [facility] [address] [id number] [place] [address] Dec, [facility] [address] [id number] [place] [address] Dec, [facility] [address] [id number] [place] [address] 18 Dec, 2012 [facility] [address] [id number] [place] [address] Dec, [facility] [address] [id number] [place] [address] Dec, [facility] [facility] [address] [id number] [place] [address] Dec, [facility] [address] [id number] [place] [address] Nov, [facility] [address] [id number] [place] [address] Nov, [facility] [address] [id number] [place] [address] Nov, [facility] [address] [id number] [place] [address] Nov, [facility] [address] [id number] [place] [address] Nov, [facility] [address] [id number] [place] [address] Nov, [facility] [address] [id number] [place] [address] Nov, [facility] [address] [id number] [place] [address] Oct, [facility] [place] [facility] [address] [id number] [place] [address] Oct, [facility] [address] [id number] [place] [address] Oct, [facility] [place] [facility] [address] [id number] [place] [address] Oct, [facility] [place] [facility] [address] [id number] [place] [address] Oct, [facility] [place] [facility] [address] [id number] [place] [address] Oct, [facility] [place] [facility] [address] [id number] [place] [address] Oct, [facility] [place] [facility] [address] [id number] [place] [address] Oct, [facility] [place] [facility] [address] [id number] [place] [address] Sep, [facility] [place] [facility] [address] [id number] [place] [address] Sep, [facility] [place] [facility] [address] [id number] [place] [address] Sep, [facility] [place] [facility] [address] [id number] [place] [address] Sep, [facility] [place] [facility] [address] [id number] [place] [address] Sep, [facility] [place] [facility] [address] [id number] [place] [address] Sep, [facility] [place] [facility] [address] [id number] [place] [address] Sep, [facility] [place] [facility] [address] [id number] [place] [address] Sep, [facility] [place] [facility] [address] [id number] [place] [address] Sep, [facility] [place] [facility] [address] [id number] [place] [address] Sep, [facility] [place] [facility] [address] [id number] [place] [address] Sep, [facility] [place] [facility] [address] [id number] [place] [address] Sep, [facility] [place] [facility] [address] [id number] [place] [address] Sep, [facility] [place] [facility] [address] [facility] [id number] [place] [address] Sep, [facility] [place] [facility] [address] [id number] [place] [address] Sep, [facility] [place] [facility] [address] [id number] [place] [address] Sep, [facility] [place] [facility] [address] [facility] [id number] [place] [address] Sep, [facility] [place] [facility] [address] [facility] [id number] [place] [address] Sep, [facility] [place] [facility] [address] [id number], [place] [address] Sep, [facility] [place] [facility] [address] [id number], [place] [address] Sep, [facility] [place] [facility] [address] [facility] [id number], [place] [address] Aug, [facility] [place] [facility] [address] [id number], [place] [address] 31 Aug, 2012 [facility] [place] [facility] [address] [id number], [place] [address] 29 Aug, 2012 [facility] [place] [facility] [address] [id number], [place] [address] Aug, [facility] [place] [facility] [address] [facility] [id number], [place] [address] Aug, [facility] [place] [facility] [address] [facility] [id number], [place] [address] 18 Aug, 2012 [facility] [place] [facility] [address] [id number] [place] [address] 18 Aug, 2012 [facility] [place] [facility] [address] [id number] [place] [address] 17 Aug, 2012 [facility] [place] [facility] [address] [id number] [place] [address] 16 Aug, 2012 [facility] [place] [facility] [address] [id number] [place] [address] 16 Aug, 2012 [facility] [place] [facility] [address] [id number] [place] [address] 15 Aug, 2012 [facility] [place] [facility] [address] [id number] [place] [address] 09 Aug, 2012 [facility] [place] [facility] [address] [id number] [place] [address] 05 Aug, 2012 [facility] [place] [facility] [address] [id number] [place] [address] 05 Aug, 2012 [facility] [place] [facility] [address] [id number] [place] [address] 04 Aug, 2012 [facility] [place] [facility] [address] [id number] [place] [address] 14 Jul, 2012 [facility] [place] [facility] [address] [id number] [place] [address] 10 Jul, 2012 [facility] [place] [facility] [address] [id number] [place] [address] Jun, [facility] [place] [facility] [address] [id number] [place] [address] Jun, [facility] [place] [facility] [address] [id number] [place] [address] 31 May, 2012 [facility] [place] [facility] [address] [id number] [place] [address] May, [facility] [place] [facility] [address] [id number] [place] [address] May, [facility] [place] [facility] [address] [id number] [place] [address] May, [facility] [place] [facility] [address] [id number] [place] [address] May, [facility] [place] [facility] [address] [id number] [place] [address] May, [facility] [place] [facility] [address] [id number] [place] [address] Apr, [facility] [address] [id number] [place] [address] Apr, [facility] [place] [facility] [address] [id number] [place] [address] March, [facility] [address] [id number] [place] [address] March, [facility] [address] [id number] [place] [address] March, [facility] [place] [facility] [address] [id number] [place] [address] March, [facility] [place] [facility] [address] [id number] [place] [address] March, [facility] [place] [facility] [address] [id number] [place] [address] March, [facility] [place] [facility] [address] [id number] [place] [address] Feb, [facility] [place] [facility] [address] [id number] [place] [address] Feb, [facility] [place] [facility] [address] [id number] [place] [address] Feb, [facility] [place] [facility] [address] [id number] [place] [address] Feb, [facility] [place] [facility] [address] [id number] [place] [address] 23 Feb, 2012 [facility] [address] [id number] [place] [address] 19 Feb, 2012 [facility] [place] [facility] [address] [id number] [place] [address] 10 Feb, 2012 [facility] [place] [facility] [address] [id number] [place] [address] Feb, [facility] [place] [facility] [address] [id number] [place] [address] 04 Feb, 2012 [facility] [place] [facility] [address] [id number] [place] [address] 30 Jan, 2012 [facility] [place] [facility] [address] [id number] [place] [address] 27 Jan, 2012 [facility] [place] [facility] [address] [id number] [place] [address] Jan, [facility] [place] [facility] [address] [id number] [place] [address] 22 Jan, 2012 [facility] [place] [facility] [address] [id number] [place] [address] Jan, [facility] [place] [facility] [address] [id number] [place] [address] 20 Jan, 2012 [facility] [place] [facility] [address] [id number] [place] [address] 14 Jan, 2012 [facility] [place] [facility] [address] [id number] [place] [address] Jan, [facility] [place] [facility] [address] [id number] [place] [address] Jan, [facility] [place] [facility] [address] [id number] [place] [address] 08 Jan, 2012 [facility] [place] [facility] [address] [id number] [place] [address] 07 Jan, 2012 [facility] [place] [facility] [address] [id number] [place] [address] Jan, [facility] [place] [facility] [address] [id number] [place] [address] Jan, [facility] [place] [facility] [address] [id number] [place] [address] Jan, [facility] [place] [facility] [address] [id number] [place] [address] Dec, [facility] [place] [facility] [address] [id number] [place] [address] Dec, [facility] [place] [facility] [address] [id number] [place] [address] Dec, [facility] [place] [facility] [address] [id number] [place] [address] Dec, [facility] [place] [facility] [address] [id number] [place] [address] 16 Dec, 2011 [facility] [place] [facility] [address] [id number] [place] [address] Dec, [facility] [place] [facility] [address] [facility] [id number] [place] [address] 08 Dec, 2011 [facility] [place] [facility] [address] [facility] [id number] [place] [address] Dec, [facility] [place] [facility] [address] [id number], [place] [address] Dec, [facility] [place] [facility] [address] [id number] [place] [address] Nov, [facility] [place] [facility] [address] [id number] [place] [address] Nov, [facility] [place] [facility] [address] [facility] [id number], [place] [address] Nov, [facility] [place] [facility] [address] [id number], [place] [address] Nov, [facility] [address] [id number] [place] [address] Oct, [facility] [place] [facility] [address] [id number] [place] [address] Oct, [facility] [place] [facility] [address] [id number] [place] [address] Oct, [facility] [place] [facility] [address] [id number] [place] [address] Oct, [facility] [place] [facility] [address] [id number] [place] [address] Oct, [facility] [place] [facility] [address] [id number] [place] [address] Oct, [facility] [place] [facility] [address] [facility] [id number] [place] [address] Oct, [facility] [place] [facility] [address] [id number] [place] [address] Sep, [facility] [place] [facility] [address] [facility] [id number] [place] [address] Sep, [facility] [place] [facility] [address] [facility] [id number] [place] [address] Sep, [facility] [place] [facility] [address] [id number], [place] [address] Sep, [facility] [place] [facility] [address] [id number], [place] [address] Sep, [facility] [place] [facility] [address] [id number] [place] [address] Sep, [facility] [place] [facility] [address] [facility] [id number] [place] [address] Sep, [facility] [place] [facility] [address] [facility] [id number] [place] [address] Sep, [facility] [place] [facility] [address] [id number] [place] [address] Sep, [facility] [place] [facility] [address] [id number] [place] [address] 30 Aug, 2011 [facility] [place] [facility] [address] [id number] [place] [address] Aug, [facility] [place] [facility] [address] [id number] [place] [address] Aug, [facility] [place] [facility] [address] [id number] [place] [address] May, [facility] [place] [facility] [address] [id number] [place] [address] Nov, [facility] [place] [facility] [address] [id number] [place] [address] 31 Oct, 2010 [facility] [place] [facility] [address] [id number] [place] [address] 30 Oct, 2010 [facility] [place] [facility] [address] [id number] [place] [address] Oct, [facility] [place] [facility] [address] [id number] [place] [address] Oct, [facility] [place] [facility] [address] [facility] [id number] [place] [address] Oct, [facility] [place] [facility] [address] [id number] [place] [address] Sep, [facility] [place] [facility] [address] [id number] [place] [address] Sep, [facility] [place] [facility] [address] [id number] [place] [address] 14 Jul, 2010 [facility] [place] [facility] [address] [id number] [place] [address] 31 Oct, 2009 [facility] [place] [facility] [address] [id number] [place] [address] Oct, [facility] [address] [facility] [id number], [place] [address] Oct, [facility] [address] [facility] [id number], [place] [address] Oct, [facility] [address] [facility] [id number], [place] [address] Sep, [facility] [address] [facility] [id number], [place] [address] Sep, [facility] [address] [facility] [id number], [place] [address] Sep, [facility] [address] [facility] [id number], [place] [address] Sep, [facility] [id number], [place] [address] Sep, [facility] [address] [id number], [place] [address] Jul, [facility] [address] [id number], [place] [address] Apr, [facility] [address] [id number], [place] [address] 12 Dec, 2008 IMMUNIZATIONS No Known Immunizations SOCIAL HISTORY Never Assessed REASON FOR VISIT EMR-[facility] PLAN OF CARE VITAL SIGNS MEDICATIONS Unknown [...]
--- OUTSIDE RECORDS SUMMARY | 2019-06-14 11:28 | XMS REPORT ---
Author Author Migration, Doctor Organization [facility] Address Unknown Phone Unavailable Care Team Providers Care Registered Representative Name Role Phone Migration, Doctor Unavailable Unavailable PROBLEMS Type Condition ICD9-CM Code GQU29-MU Code Onset Dates Condition Status SNOMED Code Problem Essential hypertension I10 Active 46221650 Problem Prediabetes R73.03 Active 331953491 Problem Reactive depression F32.9 Active 91950579 Problem Acquired hypothyroidism E03.9 Active 679331468 Problem Gastroesophageal reflux disease, esophagitis presence not specified K21.9 Active 056024366 Problem Mixed hyperlipidemia E78.2 Active 709289207 Problem Other chronic pain G89.29 Active 43113047 Problem Chronic obstructive pulmonary disease, unspecified COPD type J44.9 Active 89845934 Problem Cigarette nicotine dependence without complication F17.210 Active 94820412 Problem Sinusitis J32.9 Active 27025581 Problem Lumbago with sciatica, right side M54.41 Active [id number] Problem Chronic pain G89.29 Active 26967708 Problem Lumbago with sciatica, left side M54.42 Active 899517504 Problem DM neuro manif type II E11.49 Active 88112051 Problem Seizures R56.9 Active 69870125 Problem Iron deficiency anemia due to chronic blood loss D50.0 Active 391016961 Problem Seasonal allergies J30.2 Active 160745988 ALLERGIES No Information ENCOUNTERS Encounter Location Date Diagnosis [facility] [address] [address] Feb, [facility] [id number] [place] [address] Jan, [facility] [id number] [place] [address] Jan, Acute cystitis with hematuria N30.01 and Dysuria R30.0 [facility] [id number] [place] [address] Jan, [facility] [id number] [address] Dec, [facility] [address], [place] [address] Dec, [facility] [address], [place] [address] Dec, [facility] [id number] [place] [address] Dec, [facility] [id number] [place] [address] Dec, Routine adult health maintenance Z00.00 ; Chronic obstructive pulmonary disease, unspecified COPD type J44.9 and Encounter for immunization Z23 [facility] [address], [place] [address] Nov, [facility] [address], [place] [address] Nov, UTI (urinary tract infection) N39.0 and Other chronic pain G89.29 [facility] [address], [place] [address] Nov, [facility] [address], [place] [address] Nov, [facility] [id number], [place] [address] Nov, Painful urination R30.9 and UTI (urinary tract infection) N39.0 [facility] [address], [place] [address] Nov, [facility] [id number], [place] [address] Nov, UTI (urinary tract infection) N39.0 [facility] [address], [place] [address] Nov, Dysuria R30.0 ; UTI (urinary tract infection) N39.0 and Chronic pain G89.29 [place] [facility] [id number] [place] [address] Nov, [facility] [id number] [place] [address] Oct, Cough R05 [place] [address] [address] Oct, Sinusitis J32.9 [facility] [id number] [place] [address] Oct, [facility] [id number] [place] [address] Oct, UTI (urinary tract infection) N39.0 and URI (upper respiratory infection) J06.9 [facility] [id number] [place] [address] Sep, Pain in thoracic spine M54.6 [facility] [id number] [place] [address] Sep, Type 2 diabetes mellitus with hyperglycemia E11.65 [facility] [id number] [place] [address] Sep, Chronic obstructive pulmonary disease, unspecified COPD type J44.9 ; Abrasion of right ear canal, initial encounter S00.411A ; Cigarette nicotine dependence without complication F17.210 ; Right leg pain M79.604 and Seasonal allergies J30.2 [place] [facility] [id number] [place] [address] Aug, [facility] [place] [id number] [place] [address] Aug, [place] [id number] [place] [address] Aug, Pain in thoracic spine M54.6 [place] [address] [address] Aug, [place] [address] [address] Aug, Chronic obstructive pulmonary disease, unspecified COPD type J44.9 ; Complete amputation of right foot, 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 ; Cigarette nicotine dependence without complication F17.210 and BMI 40.0-44.9, adult Z68.41 [place] [address] [address] Jul, [place] [address] [address] Jul, [place] [address] [address] Jul, Onychomycosis B35.1 ; Onychocryptosis L60.0 and DM neuro manif type II E11.49 [place] [address] [address] Jun, Pain in thoracic spine M54.[address] [address] Jun, Iron deficiency anemia due to chronic blood loss D50.0 and Hematochezia K92.[address] [address] Jun, Gastroenteritis K52.9 and Abnormal RBC indices R71.8 [place] [address] [address] Jun, [place] [address] [address] Jun, Chest congestion R09.89 and Seizures R56.[address] [address] May, Pain in thoracic spine M54.[address] [place] [address] May, [facility] [id number] [place] [address] May, [facility] [id number] [place] [address] May, [facility] [id number] [place] [address] May, Acute non-recurrent frontal sinusitis J01.10 and Dermatitis L30.9 [facility] [id number] [place] [address] May, [facility] [id number] [place] [address] May, Pain in thoracic spine M54.6 [facility] [id number] [place] [address] May, [facility] [id number] [place] [address] May, Acute nasopharyngitis J00 [facility] [id number] [place] [address] May, [facility] [id number] [place] [address] May, [facility] [id number] [place] [address] Apr, [facility] [id number] [place] [address] Apr, [facility] [id number] [place] [address] Apr, [facility] [id number] [place] [address] Apr, [facility] [id number] [place] [address] Apr, Pain in right ankle and joints of right foot M25.571 [place] [id number] [place] [address] Apr, [place] [id number] [place] [address] Apr, Bronchitis J40 ; Pain in right ankle and joints of right foot M25.571 ; Other chronic pain G89.29 ; Prediabetes R73.03 ; Chronic obstructive pulmonary disease, unspecified COPD type J44.9 and Cigarette nicotine dependence without complication F17.210 [facility] [id number] [place] [address] 13 Apr, 2018 Seasonal allergic rhinitis, unspecified trigger J30.2 [place] [id number] [place] [address] 08 Apr, 2018 Onychomycosis B35.1 ; Onychocryptosis L60.0 and DM neuro manif type II E11.49 [place] [id number] [place] [address] Apr, Reactive depression F32.9 ; Thoracic myofascial strain, initial encounter S29.019A and Leg cramps R25.2 [place] [id number] [place] [address] March, [place] [id number] [place] [address] March, Type 2 diabetes mellitus with hyperglycemia E11.65 [place] [id number] [place] [address] March, Reactive depression F32.9 [place] [id number] [place] [address] March, Pain in thoracic spine M54.6 and Other chronic pain G89.29 [place] [id number] [place] [address] Feb, [place] [address] [address] Jan, Reactive depression F32.9 ; Essential hypertension I10 ; Gastroesophageal reflux disease, esophagitis presence not specified K21.9 ; Lumbago with sciatica, left side M54.42 and Lumbago with sciatica, right side M54.41 [place] [address] [address] Jan, Reactive depression F32.9 and Pharyngoesophageal dysphagia R13.14 [place] [address] [address] Jan, [address] [address] Jan, Encounter for immunization Z23 [address] [address] Jan, Onychomycosis B35.1 and DM neuro manif type II E11.49 [place] [address] [address] Jan, [place] [address] [address] Jan, Prediabetes R73.[address] [address] Dec, [place] [address] [address] Dec, Essential hypertension I10 ; Mixed hyperlipidemia E78.2 ; Acquired hypothyroidism E03.9 ; Reactive depression F32.9 and Prediabetes R73.03 [place] [address] [address] Dec, [place] [address] [address] Dec, [place] [id number] Dec, DM neuro manif type II E11.49 [facility] [address], [place] [address] Dec, Bruise T14.8XXA ; Type 2 diabetes mellitus with hyperglycemia E11.65 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 [facility] [id number] [place] [address] Oct, [facility] [id number] [place] [address] March, Onychomycosis B35.1 and DM neuro manif type II E11.49 [facility] [id number] [place] [address] Jun, [facility] [id number] [place] [address] Jun, [facility] [id number] [place] [address] Jun, COPD with acute exacerbation 491.21 [facility] [id number] [place] [address] Apr, [facility] [id number] [place] [address] Feb, [facility] [address], [place] [address] Feb, [facility] [id number] [place] [address] Jan, [facility] [id number] [place] [address] Jan, [facility] [id number] [place] [address] Jan, [facility] [address], [place] [address] Jan, [facility] [address] [facility] [id number] [place] [address] 24 Jan, 2014 [facility] [place] [facility] [address] [id number] [place] [address] 23 Jan, 2014 [facility] [place] [facility] [address] [id number] [place] [address] 23 Jan, 2014 [facility] [place] [facility] [address] [id number] [place] [address] 23 Jan, 2014 [facility] [place] [facility] [address] [id number] [place] [address] 23 Jan, 2014 [facility] [place] [facility] [address] [id number] [place] [address] 19 Jan, 2014 [facility] [place] [facility] [address] [id number] [place] [address] 19 Jan, 2014 [facility] [place] [facility] [address] [id number] [place] [address] 18 Jan, 2014 [facility] [place] [facility] [address] [id number] [place] [address] 18 Jan, 2015 [facility] [place] [facility] [address] [id number] [place] [address] 16 Jan, 2014 [facility] [place] [facility] [address] [id number] [place] [address] 16 Jan, 2014 [facility] [place] [facility] [address] [id number] [place] [address] 16 Jan, 2014 [facility] [place] [facility] [address] [id number] [place] [address] 16 Jan, 2014 [facility] [place] [facility] [address] [id number] [place] [address] 15 Jan, 2014 [facility] [place] [facility] [address] [id number] [place] [address] 13 Jan, 2014 [facility] [place] [facility] [address] [id number] [place] [address] 13 Jan, 2015 [facility] [place] [facility] [address] [id number] [place] [address] 13 Jan, 2015 [facility] [place] [facility] [address] [id number] [place] [address] Jan, [facility] [place] [facility] [address] [facility] [id number] [place] [address] Jan, [facility] [place] [facility] [address] [id number] [place] [address] Jan, [facility] [place] [facility] [address] [id number] [place] [address] Jan, [facility] [place] [facility] [address] [id number] [place] [address] 24 Dec, 2014 [facility] [place] [facility] [address] [facility] [id number] [place] [address] Dec, [facility] [place] [facility] [address] [facility] [id number] [place] [address] Dec, [facility] [place] [facility] [address] [facility] [id number] [place] [address] Dec, [facility] [place] [facility] [address] [facility] [id number] [place] [address] Dec, 2014 [facility] [place] [facility] [address] [facility] [id number] [place] [address] Dec, 2014 [facility] [place] [facility] [address] [facility] [id number] [place] [address] Dec, 2014 [facility] [place] [facility] [address] [facility] [id number] [place] [address] Dec, 2014 [facility] [place] [facility] [address] [facility] [id number] [place] [address] Dec, 2014 [facility] [place] [facility] [address] [facility] [id number] [place] [address] Dec, 2014 [facility] [place] [facility] [address] [id number] [place] [address] Dec, [facility] [place] [facility] [address] [id number] [place] [address] Dec, [facility] [place] [facility] [address] [id number] [place] [address] Nov, [facility] [place] [facility] [address] [id number] [place] [address] Nov, [facility] [place] [facility] [address] [id number] [place] [address] Nov, [facility] [place] [facility] [address] [id number] [place] [address] Nov, [facility] [place] [facility] [address] [id number] [place] [address] Nov, [facility] [place] [facility] [address] [id number] [place] [address] Nov, [facility] [place] [facility] [address] [id number] [place] [address] Nov, [facility] [place] [facility] [address] [id number] [place] [address] Nov, [facility] [place] [facility] [address] [id number] [place] [address] Nov, [facility] [place] [facility] [address] [id number] [place] [address] Nov, [facility] [place] [facility] [address] [id number] [place] [address] Nov, [facility] [place] [facility] [address] [id number] [place] [address] Nov, [facility] [place] [facility] [address] [id number] [place] [address] Oct, [facility] [place] [facility] [address] [id number] [place] [address] 31 Oct, 2014 [facility] [place] [facility] [address] [id number] [place] [address] 30 Oct, 2014 [facility] [place] [facility] [address] [id number] [place] [address] 30 Oct, 2014 [facility] [place] [facility] [address] [id number] [place] [address] 29 Oct, 2014 [facility] [place] [facility] [address] [id number] [place] [address] 29 Oct, 2014 [facility] [place] [facility] [address] [id number] [place] [address] Oct, [facility] [place] [facility] [address] [id number] [place] [address] Oct, [facility] [place] [facility] [address] [id number] [place] [address] 17 Oct, 2014 [facility] [place] [facility] [address] [id number] [place] [address] 17 Oct, 2014 [facility] [place] [facility] [address] [id number] [place] [address] 16 Oct, 2014 [facility] [place] [facility] [address] [id number] [place] [address] 16 Oct, 2014 [facility] [place] [facility] [address] [id number] [place] [address] 15 Oct, 2014 [facility] [place] [facility] [address] [id number] [place] [address] 15 Oct, 2014 [facility] [place] [facility] [address] [id number] [place] [address] 08 Oct, 2014 [facility] [place] [facility] [address] [id number] [place] [address] 24 Sep, 2014 [facility] [place] [facility] [address] [id number] [place] [address] Sep, [facility] [place] [facility] [address] [id number] [place] [address] Sep, [facility] [place] [facility] [address] [id number] [place] [address] Sep, [facility] [place] [facility] [address] [id number] [place] [address] Aug, [facility] [place] [facility] [address] [id number] [place] [address] Aug, [facility] [place] [facility] [address] [id number] [place] [address] Aug, [facility] [place] [facility] [address] [id number] [place] [address] Aug, [facility] [place] [facility] [address] [id number] [place] [address] Aug, [facility] [place] [facility] [address] [id number] [place] [address] Aug, [facility] [place] [facility] [address] [id number] [place] [address] 29 Jul, 2014 [facility] [place] [facility] [address] [id number] [place] [address] 29 Jul, 2014 [facility] [place] [facility] [address] [id number] [place] [address] 15 Jul, 2014 [facility] [place] [facility] [address] [id number] [place] [address] 15 Jul, 2014 [facility] [place] [facility] [address] [id number] [place] [address] 08 Jul, 2014 [facility] [place] [facility] [address] [id number] [place] [address] 08 Jul, 2014 [facility] [place] [facility] [address] [id number] [place] [address] Jun, [facility] [place] [facility] [address] [id number] [place] [address] Jun, [facility] [place] [facility] [address] [id number] [place] [address] Jun, [facility] [place] [facility] [address] [id number] [place] [address] Jun, [facility] [place] [facility] [address] [id number] [place] [address] Jun, [facility] [place] [facility] [address] [id number] [place] [address] Jun, [facility] [place] [facility] [address] [id number] [place] [address] Jun, [facility] [place] [facility] [address] [id number] [place] [address] May, [facility] [place] [facility] [address] [id number] [place] [address] May, [facility] [place] [facility] [address] [id number] [place] [address] May, [facility] [place] [facility] [address] [id number] [place] [address] May, [facility] [place] [facility] [address] [id number] [place] [address] May, [facility] [place] [facility] [address] [id number] [place] [address] May, [facility] [place] [facility] [address] [id number] [place] [address] May, [facility] [place] [facility] [address] [id number] [place] [address] May, [facility] [place] [facility] [address] [id number] [place] [address] May, [facility] [place] [facility] [address] [id number] [place] [address] May, [facility] [place] [facility] [address] [id number] [place] [address] May, [facility] [place] [facility] [address] [id number] [place] [address] May, [facility] [place] [facility] [address] [id number] [place] [address] Apr, [facility] [place] [facility] [address] [id number] [place] [address] Apr, [facility] [place] [facility] [address] [id number] [place] [address] Apr, [facility] [place] [facility] [address] [id number] [place] [address] Apr, [facility] [place] [facility] [address] [id number] [place] [address] Apr, [facility] [place] [facility] [address] [id number] [place] [address] Apr, [facility] [place] [facility] [address] [id number] [place] [address] Apr, [facility] [place] [facility] [address] [id number] [place] [address] Apr, [facility] [place] [facility] [address] [id number] [place] [address] Apr, [facility] [place] [facility] [address] [id number] [place] [address] Apr, [facility] [place] [facility] [address] [id number] [place] [address] March, [facility] [place] [facility] [address] [id number] [place] [address] March, [facility] [place] [facility] [address] [id number] [place] [address] March, [facility] [place] [facility] [address] [id number] [place] [address] March, [facility] [place] [facility] [address] [id number] [place] [address] March, [facility] [place] [facility] [address] [id number] [place] [address] March, [facility] [place] [facility] [address] [id number] [place] [address] Feb, [facility] [place] [facility] [address] [id number] [place] [address] Feb, [facility] [place] [facility] [address] [id number] [place] [address] Feb, [facility] [place] [facility] [address] [id number] [place] [address] Feb, [facility] [place] [facility] [address] [id number] [place] [address] Feb, [facility] [place] [facility] [address] [id number] [place] [address] Feb, [facility] [place] [facility] [address] [id number] [place] [address] Feb, [facility] [place] [facility] [address] [id number] [place] [address] Feb, [facility] [place] [facility] [address] [address] [id number] [place] [address] Feb, [facility] [place] [facility] [address] [id number] [place] [address] Feb, [facility] [place] [facility] [address] [id number] [place] [address] Jan, [facility] [place] [facility] [address] [id number] [place] [address] Jan, [facility] [place] [facility] [address] [id number] [place] [address] Jan, [facility] [place] [facility] [address] [id number] [place] [address] Jan, [facility] [place] [facility] [address] [id number] [place] [address] Jan, [facility] [place] [facility] [address] [id number] [place] [address] Jan, [facility] [place] [facility] [address] [id number] [place] [address] Jan, [facility] [place] [facility] [address] [id number] [place] [address] Jan, [facility] [place] [facility] [address] [id number] [place] [address] Dec, [facility] [place] [facility] [address] [id number] [place] [address] Dec, [facility] [place] [facility] [address] [id number] [place] [address] Dec, [facility] [place] [facility] [address] [id number] [place] [address] Dec, [facility] [place] [facility] [address] [id number] [place] [address] Dec, [facility] [place] [facility] [address] [id number] [place] [address] Dec, [facility] [place] [facility] [address] [id number] [place] [address] Dec, [facility] [place] [facility] [address] [id number] [place] [address] Dec, [facility] [place] [facility] [address] [id number] [place] [address] Nov, [facility] [place] [facility] [address] [id number] [place] [address] Nov, [facility] [place] [facility] [address] [id number] [place] [address] Nov, [facility] [place] [facility] [address] [id number] [place] [address] Nov, [facility] [address] [id number] [place] [address] Nov, [facility] [place] [facility] [address] [id number] [place] [address] Nov, [facility] [address] [id number] [place] [address] Nov, [facility] [place] [facility] [address] [id number] [place] [address] Nov, [facility] [place] [facility] [address] [id number] [place] [address] Nov, [facility] [place] [facility] [address] [id number] [place] [address] Nov, [facility] [place] [facility] [address] [id number] [place] [address] Nov, [facility] [address] [id number] [place] [address] Oct, [facility] [place] [facility] [address] [id number] [place] [address] Oct, [facility] [place] [facility] [address] [id number] [place] [address] Oct, [facility] [place] [facility] [address] [id number] [place] [address] Oct, [facility] [place] [facility] [address] [id number] [place] [address] Sep, [facility] [place] [facility] [address] [id number] [place] [address] Sep, [facility] [place] [facility] [address] [id number] [place] [address] Sep, [facility] [place] [facility] [address] [id number] [place] [address] Sep, [facility] [place] [facility] [address] [id number] [place] [address] Aug, [facility] [place] [facility] [address] [id number] [place] [address] Aug, [facility] [place] [facility] [address] [id number] [place] [address] Aug, [facility] [place] [facility] [address] [id number] [place] [address] Aug, [facility] [place] [facility] [address] [id number] [place] [address] Aug, [facility] [place] [facility] [address] [id number] [place] [address] Aug, [facility] [place] [facility] [address] [id number] [place] [address] Aug, [facility] [place] [facility] [address] [id number], [place] [address] Aug, [facility] [place] [facility] [address] [id number] [place] [address] 28 Jul, 2013 [facility] [place] [facility] [address] [id number], [place] [address] 27 Jul, 2013 [facility] [place] [facility] [address] [id number][place] [address] 26 Jul, 2012 [facility] [place] [facility] [address] [id number] [address] 24 Jul, 2012 [facility] [place] [facility] [address] [id number] [place] [address] 24 Jul, 2012 [facility] [place] [facility] [address] [id number], [place] [address] 23 Jul, 2012 [facility] [place] [facility] [address] [id number] [address] 19 Jul, 2012 [facility] [place] [facility] [address] [id number] [place] [address] 18 Sep, 2012 [facility] [place] [facility] [address] [id number] [place] [address] 17 Sep, 2012 [facility] [place] [facility] [address] [id number] [place] [address] 16 Jul, 2012 [facility] [place] [facility] [address] [id number] [place] [address] 13 Jul, 2012 [facility] [place] [facility] [address] [id number] [place] [address] 13 Jul, 2012 [facility] [place] [facility] [address] [id number] [place] [address] 12 Jul, 2012 [facility] [place] [facility] [address] [id number] [place] [address] 11 Jul, 2012 [facility] [place] [facility] [address] [id number] [place] [address] 04 Jul, 2012 [facility] [place] [facility] [address] [id number] [place] [address] 30 Jun, 2013 [facility] [place] [facility] [address] [id number] [place] [address] Jun, [facility] [place] [facility] [address] [id number] [place] [address] Jun, [facility] [place] [facility] [address] [id number] [place] [address] May, [facility] [place] [facility] [address] [id number] [place] [address] May, [facility] [place] [facility] [address] [id number] [place] [address] May, [facility] [place] [facility] [address] [id number] [place] [address] May, [facility] [place] [facility] [address] [id number] [place] [address] Apr, [facility] [place] [facility] [address] [id number] [place] [address] Apr, [facility] [address] [id number] [place] [address] Apr, [facility] [address] [id number] [place] [address] Apr, [facility] [address] [id number] [place] [address] March, [facility] [address] [id number] [place] [address] March, [facility] [address] [id number] [place] [address] March, [facility] [address] [id number] [place] [address] Feb, [facility] [address] [id number] [place] [address] Feb, [facility] [address] [id number] [place] [address] Jan, [facility] [address] [id number] [place] [address] Jan, [facility] [address] [id number] [place] [address] Jan, [facility] [address] [id number] [place] [address] Jan, [facility] [address] [id number] [place] [address] Jan, [facility] [place] [facility] [address] [id number] [place] [address] Dec, [facility] [place] [facility] [address] [id number] [place] [address] Dec, [facility] [address] [id number] [place] [address] Dec, [facility] [address] [id number] [place] [address] Dec, [facility] [address] [id number] [place] [address] 18 Dec, 2012 [facility] [address] [id number] [place] [address] Dec, [facility] [address] [id number] [place] [address] Dec, [facility] [address] [id number] [place] [address] Dec, [facility] [address] [id number] [place] [address] Nov, [facility] [address] [id number] [place] [address] Nov, [facility] [address] [id number] [place] [address] Nov, [facility] [address] [id number] [place] [address] Nov, [facility] [address] [id number] [place] [address] Nov, [facility] [address] [id number] [place] [address] Nov, [facility] [address] [id number] [place] [address] Nov, [facility] [address] [id number] [place] [address] Oct, [facility] [place] [facility] [address] [id number] [place] [address] Oct, [facility] [address] [id number] [place] [address] Oct, [facility] [place] [facility] [address] [id number] [place] [address] Oct, [facility] [place] [facility] [address] [id number] [place] [address] Oct, [facility] [place] [facility] [address] [id number] [place] [address] Oct, [facility] [place] [facility] [address] [id number] [place] [address] Oct, [facility] [place] [facility] [address] [id number] [place] [address] Oct, [facility] [place] [facility] [address] [id number] [place] [address] Sep, [facility] [place] [facility] [address] [id number] [place] [address] Sep, [facility] [place] [facility] [address] [id number] [place] [address] Sep, [facility] [place] [facility] [address] [id number] [place] [address] Sep, [facility] [place] [facility] [address] [id number] [place] [address] Sep, [facility] [place] [facility] [address] [id number] [place] [address] Sep, [facility] [place] [facility] [address] [id number] [place] [address] Sep, [facility] [place] [facility] [address] [id number] [place] [address] Sep, [facility] [place] [facility] [address] [id number] [place] [address] Sep, [facility] [place] [facility] [address] [id number] [place] [address] Sep, [facility] [place] [facility] [address] [id number] [place] [address] Sep, [facility] [place] [facility] [address] [id number] [place] [address] Sep, [facility] [place] [facility] [address] [id number] [place] [address] Sep, [facility] [place] [facility] [address] [facility] [id number] [place] [address] Sep, [facility] [place] [facility] [address] [id number] [place] [address] Sep, [facility] [place] [facility] [address] [id number] [place] [address] Sep, [facility] [place] [facility] [address] [facility] [id number] [place] [address] Sep, [facility] [place] [facility] [address] [facility] [id number] [place] [address] Sep, [facility] [place] [facility] [address] [id number], [place] [address] Sep, [facility] [place] [facility] [address] [id number], [place] [address] Sep, [facility] [place] [facility] [address] [facility] [id number], [place] [address] Aug, [facility] [place] [facility] [address] [id number], [place] [address] 31 Aug, 2012 [facility] [place] [facility] [address] [id number], [place] [address] 29 Aug, 2012 [facility] [place] [facility] [address] [id number], [place] [address] Aug, [facility] [place] [facility] [address] [facility] [id number], [place] [address] Aug, [facility] [place] [facility] [address] [facility] [id number], [place] [address] 18 Aug, 2012 [facility] [place] [facility] [address] [id number] [place] [address] 18 Aug, 2012 [facility] [place] [facility] [address] [id number] [place] [address] 17 Aug, 2012 [facility] [place] [facility] [address] [id number] [place] [address] 16 Aug, 2012 [facility] [place] [facility] [address] [id number] [place] [address] 16 Aug, 2012 [facility] [place] [facility] [address] [id number] [place] [address] 15 Aug, 2012 [facility] [place] [facility] [address] [id number] [place] [address] 09 Aug, 2012 [facility] [place] [facility] [address] [id number] [place] [address] 05 Aug, 2012 [facility] [place] [facility] [address] [id number] [place] [address] 05 Aug, 2012 [facility] [place] [facility] [address] [id number] [place] [address] 04 Aug, 2012 [facility] [place] [facility] [address] [id number] [place] [address] 14 Jul, 2012 [facility] [place] [facility] [address] [id number] [place] [address] 10 Jul, 2012 [facility] [place] [facility] [address] [id number] [place] [address] Jun, [facility] [place] [facility] [address] [id number] [place] [address] Jun, [facility] [place] [facility] [address] [id number] [place] [address] 31 May, 2012 [facility] [place] [facility] [address] [id number] [place] [address] May, [facility] [place] [facility] [address] [id number] [place] [address] May, [facility] [place] [facility] [address] [id number] [place] [address] May, [facility] [place] [facility] [address] [id number] [place] [address] May, [facility] [place] [facility] [address] [id number] [place] [address] May, [facility] [place] [facility] [address] [id number] [place] [address] Apr, [facility] [address] [id number] [place] [address] Apr, [facility] [place] [facility] [address] [id number] [place] [address] March, [facility] [address] [id number] [place] [address] March, [facility] [address] [id number] [place] [address] March, [facility] [place] [facility] [address] [id number] [place] [address] March, [facility] [place] [facility] [address] [id number] [place] [address] March, [facility] [place] [facility] [address] [id number] [place] [address] March, [facility] [place] [facility] [address] [id number] [place] [address] Feb, [facility] [place] [facility] [address] [id number] [place] [address] Feb, [facility] [place] [facility] [address] [id number] [place] [address] Feb, [facility] [place] [facility] [address] [id number] [place] [address] Feb, [facility] [place] [facility] [address] [id number] [place] [address] 23 Feb, 2012 [facility] [address] [id number] [place] [address] 19 Feb, 2012 [facility] [place] [facility] [address] [id number] [place] [address] 10 Feb, 2012 [facility] [place] [facility] [address] [id number] [place] [address] Feb, [facility] [place] [facility] [address] [id number] [place] [address] 04 Feb, 2012 [facility] [place] [facility] [address] [id number] [place] [address] 30 Jan, 2012 [facility] [place] [facility] [address] [id number] [place] [address] 27 Jan, 2012 [facility] [place] [facility] [address] [id number] [place] [address] Jan, [facility] [place] [facility] [address] [id number] [place] [address] 22 Jan, 2012 [facility] [place] [facility] [address] [id number] [place] [address] Jan, [facility] [place] [facility] [address] [id number] [place] [address] 20 Jan, 2012 [facility] [place] [facility] [address] [id number] [place] [address] 14 Jan, 2012 [facility] [place] [facility] [address] [id number] [place] [address] Jan, [facility] [place] [facility] [address] [id number] [place] [address] Jan, [facility] [place] [facility] [address] [id number] [place] [address] 08 Jan, 2012 [facility] [place] [facility] [address] [id number] [place] [address] 07 Jan, 2012 [facility] [place] [facility] [address] [id number] [place] [address] Jan, [facility] [place] [facility] [address] [id number] [place] [address] Jan, [facility] [place] [facility] [address] [id number] [place] [address] Jan, [facility] [place] [facility] [address] [id number] [place] [address] Dec, [facility] [place] [facility] [address] [id number] [place] [address] Dec, [facility] [place] [facility] [address] [id number] [place] [address] Dec, [facility] [place] [facility] [address] [id number] [place] [address] Dec, [facility] [place] [facility] [address] [id number] [place] [address] 16 Dec, 2011 [facility] [place] [facility] [address] [id number] [place] [address] Dec, [facility] [place] [facility] [address] [facility] [id number] [place] [address] 08 Dec, 2011 [facility] [place] [facility] [address] [facility] [id number] [place] [address] Dec, [facility] [place] [facility] [address] [id number], [place] [address] Dec, [facility] [place] [facility] [address] [id number] [place] [address] Nov, [facility] [place] [facility] [address] [id number] [place] [address] Nov, [facility] [place] [facility] [address] [facility] [id number], [place] [address] Nov, [facility] [place] [facility] [address] [id number], [place] [address] Nov, [facility] [address] [id number] [place] [address] Oct, [facility] [place] [facility] [address] [id number] [place] [address] Oct, [facility] [place] [facility] [address] [id number] [place] [address] Oct, [facility] [place] [facility] [address] [id number] [place] [address] Oct, [facility] [place] [facility] [address] [id number] [place] [address] Oct, [facility] [place] [facility] [address] [id number] [place] [address] Oct, [facility] [place] [facility] [address] [facility] [id number] [place] [address] Oct, [facility] [place] [facility] [address] [id number] [place] [address] Sep, [facility] [place] [facility] [address] [facility] [id number] [place] [address] Sep, [facility] [place] [facility] [address] [facility] [id number] [place] [address] Sep, [facility] [place] [facility] [address] [id number], [place] [address] Sep, [facility] [place] [facility] [address] [id number], [place] [address] Sep, [facility] [place] [facility] [address] [id number] [place] [address] Sep, [facility] [place] [facility] [address] [facility] [id number] [place] [address] Sep, [facility] [place] [facility] [address] [facility] [id number] [place] [address] Sep, [facility] [place] [facility] [address] [id number] [place] [address] Sep, [facility] [place] [facility] [address] [id number] [place] [address] 30 Aug, 2011 [facility] [place] [facility] [address] [id number] [place] [address] Aug, [facility] [place] [facility] [address] [id number] [place] [address] Aug, [facility] [place] [facility] [address] [id number] [place] [address] May, [facility] [place] [facility] [address] [id number] [place] [address] Nov, [facility] [place] [facility] [address] [id number] [place] [address] 31 Oct, 2010 [facility] [place] [facility] [address] [id number] [place] [address] 30 Oct, 2010 [facility] [place] [facility] [address] [id number] [place] [address] Oct, [facility] [place] [facility] [address] [id number] [place] [address] Oct, [facility] [place] [facility] [address] [facility] [id number] [place] [address] Oct, [facility] [place] [facility] [address] [id number] [place] [address] Sep, [facility] [place] [facility] [address] [id number] [place] [address] Sep, [facility] [place] [facility] [address] [id number] [place] [address] 14 Jul, 2010 [facility] [place] [facility] [address] [id number] [place] [address] 31 Oct, 2009 [facility] [place] [facility] [address] [id number] [place] [address] Oct, [facility] [address] [facility] [id number], [place] [address] Oct, [facility] [address] [facility] [id number], [place] [address] Oct, [facility] [address] [facility] [id number], [place] [address] Sep, [facility] [address] [facility] [id number], [place] [address] Sep, [facility] [address] [facility] [id number], [place] [address] Sep, [facility] [address] [facility] [id number], [place] [address] Sep, [facility] [id number], [place] [address] Sep, [facility] [address] [id number], [place] [address] Jul, [facility] [address] [id number], [place] [address] Apr, [facility] [address] [id number], [place] [address] 12 Dec, 2008 IMMUNIZATIONS No Known Immunizations SOCIAL HISTORY Never Assessed REASON FOR VISIT EMR-[facility] PLAN OF CARE VITAL SIGNS MEDICATIONS Unknown [...]
--- OUTSIDE RECORDS SUMMARY | 2019-06-14 11:29 | XMS REPORT ---
Author Author Migration, Doctor Organization [facility] Address Unknown Phone Unavailable Care Team Providers Care Fuel Management Handler Name Role Phone Migration, Doctor Unavailable Unavailable PROBLEMS Type Condition ICD9-CM Code HEI95-LL Code Onset Dates Condition Status SNOMED Code Problem Essential hypertension I10 Active 04994544 Problem Prediabetes R73.03 Active 879128594 Problem Reactive depression F32.9 Active 24577521 Problem Acquired hypothyroidism E03.9 Active 589779516 Problem Gastroesophageal reflux disease, esophagitis presence not specified K21.9 Active 577546922 Problem Mixed hyperlipidemia E78.2 Active 207281140 Problem Other chronic pain G89.29 Active 59027167 Problem Chronic obstructive pulmonary disease, unspecified COPD type J44.9 Active 88268173 Problem Cigarette nicotine dependence without complication F17.210 Active 13793321 Problem Sinusitis J32.9 Active 29499255 Problem Lumbago with sciatica, right side M54.41 Active [id number] Problem Chronic pain G89.29 Active 84766442 Problem Lumbago with sciatica, left side M54.42 Active 859389583 Problem DM neuro manif type II E11.49 Active 24797568 Problem Seizures R56.9 Active 38726321 Problem Iron deficiency anemia due to chronic blood loss D50.0 Active 235896083 Problem Seasonal allergies J30.2 Active 564396137 ALLERGIES No Information ENCOUNTERS Encounter Location Date Diagnosis [facility] [address] [address] Feb, [facility] [id number] [place] [address] Jan, [facility] [id number] [place] [address] Jan, Acute cystitis with hematuria N30.01 and Dysuria R30.0 [facility] [id number] [place] [address] Jan, [facility] [id number] [address] Dec, [facility] [address] [address] Dec, [facility] [address] [address] Dec, [facility] [address] [place] [address] Dec, [facility] [address] [place] [address] Dec, Routine adult health maintenance Z00.00 ; Chronic obstructive pulmonary disease, unspecified COPD type J44.9 and Encounter for immunization Z23 [facility] [address] [address] Nov, [facility] [address] [address] Nov, UTI (urinary tract infection) N39.0 and Other chronic pain G89.29 [facility] [address] [address] Nov, [facility] [address] [address] Nov, [facility] [id number] [address] Nov, Painful urination R30.9 and UTI (urinary tract infection) N39.0 [facility] [address] [address] Nov, [facility] [id number] [address] Nov, UTI (urinary tract infection) N39.0 [facility] [address] [address] Nov, Dysuria R30.0 ; UTI (urinary tract infection) N39.0 and Chronic pain G89.29 [place] [facility] [id number] [place] [address] Nov, [facility] [id number] [place] [address] Oct, Cough R05 [facility] [address] [address] Oct, Sinusitis J32.9 [facility] [id number] [place] [address] Oct, [facility] [id number] [place] [address] Oct, UTI (urinary tract infection) N39.0 and URI (upper respiratory infection) J06.9 [facility] [id number] [place] [address] Sep, Pain in thoracic spine M54.6 [facility] [id number] [place] [address] Sep, Type 2 diabetes mellitus with hyperglycemia E11.65 [facility] [id number] [place] [address] Sep, Chronic obstructive pulmonary disease, unspecified COPD type J44.9 ; Abrasion of right ear canal, initial encounter S00.411A ; Cigarette nicotine dependence without complication F17.210 ; Right leg pain M79.604 and Seasonal allergies J30.2 [facility] [id number] [place] [address] Aug, [facility] [address] [place] [address] Aug, [facility] [id number] [place] [address] Aug, Pain in thoracic spine M54.6 [place] [address] [address] Aug, [place] [address] [address] Aug, Chronic obstructive pulmonary disease, unspecified COPD type J44.9 ; Complete amputation of right foot, 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 ; Cigarette nicotine dependence without complication F17.210 and BMI 40.0-44.9, adult Z68.41 [place] [address] [address] Jul, [place] [address] [address] Jul, [place] [address] [address] Jul, Onychomycosis B35.1 ; Onychocryptosis L60.0 and DM neuro manif type II E11.49 [place] [facility] [address] [address] Jun, Pain in thoracic spine M54.[address] [address] Jun, Iron deficiency anemia due to chronic blood loss D50.0 and Hematochezia K92.[address] [address] Jun, Gastroenteritis K52.9 and Abnormal RBC indices R71.8 [place] [address] [address] Jun, [place] [address] [address] Jun, Chest congestion R09.89 and Seizures R56.[address] [address] May, Pain in thoracic spine M54.[address] [place] [address] May, [facility] [id number] [place] [address] May, [facility] [address] [place] [address] May, [facility] [address] [place] [address] May, Acute non-recurrent frontal sinusitis J01.10 and Dermatitis L30.9 [facility] [address] [place] [address] May, [facility] [address] [place] [address] May, Pain in thoracic spine M54.6 [facility] [address] [place] [address] May, [facility] [address] [place] [address] May, Acute nasopharyngitis J00 [facility] [address] [place] [address] May, [facility] [address] [place] [address] May, [facility] [address] [place] [address] Apr, [facility] [id number] [place] [address] Apr, [facility] [id number] [place] [address] Apr, [facility] [id number] [place] [address] Apr, [facility] [address] [place] [address] Apr, Pain in right ankle and joints of right foot M25.571 [place] [facility] [address] [place] [address] Apr, [facility] [address] [place] [address] Apr, Bronchitis J40 ; Pain in right ankle and joints of right foot M25.571 ; Other chronic pain G89.29 ; Prediabetes R73.03 ; Chronic obstructive pulmonary disease, unspecified COPD type J44.9 and Cigarette nicotine dependence without complication F17.210 [facility] [id number] [place] [address] 13 Apr, 2018 Seasonal allergic rhinitis, unspecified trigger J30.2 [place] [facility] [id number] [place] [address] 08 Apr, 2018 Onychomycosis B35.1 ; Onychocryptosis L60.0 and DM neuro manif type II E11.49 [place] [facility] [address] [place] [address] Apr, Reactive depression F32.9 ; Thoracic myofascial strain, initial encounter S29.019A and Leg cramps R25.2 [facility] [id number] [place] [address] March, [place] [facility] [address] [place] [address] March, Type 2 diabetes mellitus with hyperglycemia E11.65 [facility] [address] [place] [address] March, Reactive depression F32.9 [place] [id number] [place] [address] March, Pain in thoracic spine M54.6 and Other chronic pain G89.29 [place] [id number] [place] [address] Feb, [place] [address] [address] Jan, Reactive depression F32.9 ; Essential hypertension I10 ; Gastroesophageal reflux disease, esophagitis presence not specified K21.9 ; Lumbago with sciatica, left side M54.42 and Lumbago with sciatica, right side M54.41 [place] [address] [address] Jan, Reactive depression F32.9 and Pharyngoesophageal dysphagia R13.14 [place] [address] [address] Jan, [address] [address] Jan, Encounter for immunization Z23 [address] [address] Jan, Onychomycosis B35.1 and DM neuro manif type II E11.49 [place] [address] [address] Jan, [place] [address] [address] Jan, Prediabetes R73.[address] [address] Dec, [place] [address] [address] Dec, Essential hypertension I10 ; Mixed hyperlipidemia E78.2 ; Acquired hypothyroidism E03.9 ; Reactive depression F32.9 and Prediabetes R73.03 [place] [address] [address] Dec, [place] [address] [address] Dec, [place] [address] Dec, DM neuro manif type II E11.49 [facility] [address] [address] Dec, Bruise T14.8XXA ; Type 2 diabetes mellitus with hyperglycemia E11.65 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 [facility] [id number] [place] [address] Oct, [facility] [id number] [place] [address] March, Onychomycosis B35.1 and DM neuro manif type II E11.49 [facility] [id number] [place] [address] Jun, [facility] [id number] [place] [address] Jun, [facility] [address] [place] [address] Jun, COPD with acute exacerbation 491.21 [facility] [address] [place] [address] Apr, [facility] [id number] [place] [address] Feb, [facility] [address] [address] Feb, [facility] [id number] [place] [address] Jan, [facility] [id number] [place] [address] Jan, [facility] [id number] [place] [address] Jan, [facility] [address] [address] Jan, [facility] [address] [facility] [id number] [place] [address] 24 Jan, 2014 [facility] [place] [facility] [address] [id number] [place] [address] 23 Jan, 2014 [facility] [place] [facility] [address] [id number] [place] [address] 23 Jan, 2014 [facility] [place] [facility] [address] [id number] [place] [address] 23 Jan, 2014 [facility] [place] [facility] [address] [id number] [place] [address] 23 Jan, 2014 [facility] [place] [facility] [address] [id number] [place] [address] 19 Jan, 2014 [facility] [place] [facility] [address] [id number] [place] [address] 19 Jan, 2014 [facility] [place] [facility] [address] [id number] [place] [address] 18 Jan, 2014 [facility] [place] [facility] [address] [id number] [place] [address] 18 Jan, 2015 [facility] [place] [facility] [address] [id number] [place] [address] 16 Jan, 2014 [facility] [place] [facility] [address] [id number] [place] [address] 16 Jan, 2014 [facility] [place] [facility] [address] [id number] [place] [address] 16 Jan, 2014 [facility] [place] [facility] [address] [id number] [place] [address] 16 Jan, 2014 [facility] [place] [facility] [address] [id number] [place] [address] 15 Jan, 2014 [facility] [place] [facility] [address] [id number] [place] [address] 13 Jan, 2014 [facility] [place] [facility] [address] [id number] [place] [address] 13 Jan, 2015 [facility] [place] [facility] [address] [id number] [place] [address] 13 Jan, 2015 [facility] [place] [facility] [address] [id number] [place] [address] Jan, [facility] [place] [facility] [address] [facility] [id number] [place] [address] Jan, [facility] [place] [facility] [address] [id number] [place] [address] Jan, [facility] [place] [facility] [address] [id number] [place] [address] Jan, [facility] [place] [facility] [address] [id number] [place] [address] 24 Dec, 2014 [facility] [place] [facility] [address] [facility] [id number] [place] [address] Dec, [facility] [place] [facility] [address] [facility] [id number] [place] [address] Dec, [facility] [place] [facility] [address] [facility] [id number] [place] [address] Dec, [facility] [place] [facility] [address] [facility] [id number] [place] [address] Dec, 2014 [facility] [place] [facility] [address] [facility] [id number] [place] [address] Dec, 2014 [facility] [place] [facility] [address] [facility] [id number] [place] [address] Dec, 2014 [facility] [place] [facility] [address] [facility] [id number] [place] [address] Dec, 2014 [facility] [place] [facility] [address] [facility] [id number] [place] [address] Dec, 2014 [facility] [place] [facility] [address] [facility] [id number] [place] [address] Dec, 2014 [facility] [place] [facility] [address] [id number] [place] [address] Dec, [facility] [place] [facility] [address] [id number] [place] [address] Dec, [facility] [place] [facility] [address] [id number] [place] [address] Nov, [facility] [place] [facility] [address] [id number] [place] [address] Nov, [facility] [place] [facility] [address] [id number] [place] [address] Nov, [facility] [place] [facility] [address] [id number] [place] [address] Nov, [facility] [place] [facility] [address] [id number] [place] [address] Nov, [facility] [place] [facility] [address] [id number] [place] [address] Nov, [facility] [place] [facility] [address] [id number] [place] [address] Nov, [facility] [place] [facility] [address] [id number] [place] [address] Nov, [facility] [place] [facility] [address] [id number] [place] [address] Nov, [facility] [place] [facility] [address] [id number] [place] [address] Nov, [facility] [place] [facility] [address] [id number] [place] [address] Nov, [facility] [place] [facility] [address] [id number] [place] [address] Nov, [facility] [place] [facility] [address] [id number] [place] [address] Oct, [facility] [place] [facility] [address] [id number] [place] [address] 31 Oct, 2014 [facility] [place] [facility] [address] [id number] [place] [address] 30 Oct, 2014 [facility] [place] [facility] [address] [id number] [place] [address] 30 Oct, 2014 [facility] [place] [facility] [address] [id number] [place] [address] 29 Oct, 2014 [facility] [place] [facility] [address] [id number] [place] [address] 29 Oct, 2014 [facility] [place] [facility] [address] [id number] [place] [address] Oct, [facility] [place] [facility] [address] [id number] [place] [address] Oct, [facility] [place] [facility] [address] [id number] [place] [address] 17 Oct, 2014 [facility] [place] [facility] [address] [id number] [place] [address] 17 Oct, 2014 [facility] [place] [facility] [address] [id number] [place] [address] 16 Oct, 2014 [facility] [place] [facility] [address] [id number] [place] [address] 16 Oct, 2014 [facility] [place] [facility] [address] [id number] [place] [address] 15 Oct, 2014 [facility] [place] [facility] [address] [id number] [place] [address] 15 Oct, 2014 [facility] [place] [facility] [address] [id number] [place] [address] 08 Oct, 2014 [facility] [place] [facility] [address] [id number] [place] [address] 24 Sep, 2014 [facility] [place] [facility] [address] [id number] [place] [address] Sep, [facility] [place] [facility] [address] [id number] [place] [address] Sep, [facility] [place] [facility] [address] [id number] [place] [address] Sep, [facility] [place] [facility] [address] [id number] [place] [address] Aug, [facility] [place] [facility] [address] [id number] [place] [address] Aug, [facility] [place] [facility] [address] [id number] [place] [address] Aug, [facility] [place] [facility] [address] [id number] [place] [address] Aug, [facility] [place] [facility] [address] [id number] [place] [address] Aug, [facility] [place] [facility] [address] [id number] [place] [address] Aug, [facility] [place] [facility] [address] [id number] [place] [address] 29 Jul, 2014 [facility] [place] [facility] [address] [id number] [place] [address] 29 Jul, 2014 [facility] [place] [facility] [address] [id number] [place] [address] 15 Jul, 2014 [facility] [place] [facility] [address] [id number] [place] [address] 15 Jul, 2014 [facility] [place] [facility] [address] [id number] [place] [address] 08 Jul, 2014 [facility] [place] [facility] [address] [id number] [place] [address] 08 Jul, 2014 [facility] [place] [facility] [address] [id number] [place] [address] Jun, [facility] [place] [facility] [address] [id number] [place] [address] Jun, [facility] [place] [facility] [address] [id number] [place] [address] Jun, [facility] [place] [facility] [address] [id number] [place] [address] Jun, [facility] [place] [facility] [address] [id number] [place] [address] Jun, [facility] [place] [facility] [address] [id number] [place] [address] Jun, [facility] [place] [facility] [address] [id number] [place] [address] Jun, [facility] [place] [facility] [address] [id number] [place] [address] May, [facility] [place] [facility] [address] [id number] [place] [address] May, [facility] [place] [facility] [address] [id number] [place] [address] May, [facility] [place] [facility] [address] [id number] [place] [address] May, [facility] [place] [facility] [address] [id number] [place] [address] May, [facility] [place] [facility] [address] [id number] [place] [address] May, [facility] [place] [facility] [address] [id number] [place] [address] May, [facility] [place] [facility] [address] [id number] [place] [address] May, [facility] [place] [facility] [address] [id number] [place] [address] May, [facility] [place] [facility] [address] [id number] [place] [address] May, [facility] [place] [facility] [address] [id number] [place] [address] May, [facility] [place] [facility] [address] [id number] [place] [address] May, [facility] [place] [facility] [address] [id number] [place] [address] Apr, [facility] [place] [facility] [address] [id number] [place] [address] Apr, [facility] [place] [facility] [address] [id number] [place] [address] Apr, [facility] [place] [facility] [address] [id number] [place] [address] Apr, [facility] [place] [facility] [address] [id number] [place] [address] Apr, [facility] [place] [facility] [address] [id number] [place] [address] Apr, [facility] [place] [facility] [address] [id number] [place] [address] Apr, [facility] [place] [facility] [address] [id number] [place] [address] Apr, [facility] [place] [facility] [address] [id number] [place] [address] Apr, [facility] [place] [facility] [address] [id number] [place] [address] Apr, [facility] [place] [facility] [address] [id number] [place] [address] March, [facility] [place] [facility] [address] [id number] [place] [address] March, [facility] [place] [facility] [address] [id number] [place] [address] March, [facility] [place] [facility] [address] [id number] [place] [address] March, [facility] [place] [facility] [address] [id number] [place] [address] March, [facility] [place] [facility] [address] [id number] [place] [address] March, [facility] [place] [facility] [address] [id number] [place] [address] Feb, [facility] [place] [facility] [address] [id number] [place] [address] Feb, [facility] [place] [facility] [address] [id number] [place] [address] Feb, [facility] [place] [facility] [address] [id number] [place] [address] Feb, [facility] [place] [facility] [address] [id number] [place] [address] Feb, [facility] [place] [facility] [address] [id number] [place] [address] Feb, [facility] [place] [facility] [address] [id number] [place] [address] Feb, [facility] [place] [facility] [address] [id number] [place] [address] Feb, [facility] [place] [facility] [address] [id number] [place] [address] Feb, [facility] [place] [facility] [address] [id number] [place] [address] Feb, [facility] [place] [facility] [address] [id number] [place] [address] Jan, [facility] [place] [facility] [address] [id number] [place] [address] Jan, [facility] [place] [facility] [address] [id number] [place] [address] Jan, [facility] [place] [facility] [address] [id number] [place] [address] Jan, [facility] [place] [facility] [address] [id number] [place] [address] Jan, [facility] [place] [facility] [address] [id number] [place] [address] Jan, [facility] [place] [facility] [address] [id number] [place] [address] Jan, [facility] [place] [facility] [address] [id number] [place] [address] Jan, [facility] [place] [facility] [address] [id number] [place] [address] Dec, [facility] [place] [facility] [address] [id number] [place] [address] Dec, [facility] [place] [facility] [address] [id number] [place] [address] Dec, [facility] [place] [facility] [address] [id number] [place] [address] Dec, [facility] [place] [facility] [address] [id number] [place] [address] Dec, [facility] [place] [facility] [address] [id number] [place] [address] Dec, [facility] [place] [facility] [address] [id number] [place] [address] Dec, [facility] [place] [facility] [address] [id number] [place] [address] Dec, [facility] [facility] [address] [id number] [place] [address] Nov, [facility] [place] [facility] [address] [id number] [place] [address] Nov, [facility] [place] [facility] [address] [id number] [place] [address] Nov, [facility] [place] [facility] [address] [id number] [place] [address] Nov, [facility] [address] [id number] [place] [address] Nov, [facility] [address] [id number] [place] [address] Nov, [facility] [address] [id number] [place] [address] Nov, [facility] [place] [address] [id number] [place] [address] Nov, [facility] [address] [id number] [place] [address] Nov, [facility] [address] [id number] [place] [address] Nov, [facility] [address] [id number] [place] [address] Nov, [facility] [address] [id number] [place] [address] Oct, [facility] [address] [id number] [place] [address] Oct, [facility] [address] [id number] [place] [address] Oct, [facility] [address] [id number] [place] [address] Oct, [facility] [address] [id number] [place] [address] Sep, [facility] [place] [facility] [address] [id number] [place] [address] Sep, [facility] [address] [id number] [place] [address] Sep, [facility] [address] [id number] [place] [address] Sep, [facility] [place] [facility] [address] [id number] [place] [address] Aug, [facility] [place] [facility] [address] [id number] [place] [address] Aug, [facility] [place] [facility] [address] [id number] [place] [address] Aug, [facility] [place] [facility] [address] [id number] [place] [address] Aug, [facility] [place] [facility] [address] [id number] [place] [address] Aug, [facility] [place] [facility] [address] [id number] [place] [address] Aug, [facility] [place] [facility] [address] [id number] [place] [address] Aug, [facility] [address] [id number] [address] Aug, [facility] [place] [facility] [address] [id number] [place] [address] 28 Jul, 2013 [facility] [facility] [address] [id number] [address] 27 Jul, 2013 [facility] [place] [facility] [address] [id number] [place] [address] 26 Jul, 2012 [facility] [address] [id number] [place] [address] 24 Jul, 2012 [facility] [place] [facility] [address] [id number] [place] [address] 24 Jul, 2012 [facility] [address] [id number] [place] [address] 23 Jul, 2012 [facility] [address] [id number] [place] [address] 19 Jul, 2012 [facility] [place] [address] [id number] [place] [address] 18 Sep, 2012 [facility] [address] [id number] [place] [address] 17 Sep, 2012 [facility] [address] [id number] [place] [address] 16 Jul, 2012 [facility] [place] [facility] [address] [id number] [place] [address] 13 Jul, 2012 [facility] [place] [facility] [address] [id number] [place] [address] 13 Jul, 2012 [facility] [address] [id number] [place] [address] 12 Jul, 2012 [facility] [address] [id number] [place] [address] 11 Jul, 2012 [facility] [address] [id number] [place] [address] 04 Jul, 2012 [facility] [address] [id number] [place] [address] 30 Jun, 2013 [facility] [address] [id number] [place] [address] Jun, [facility] [address] [id number] [place] [address] Jun, [facility] [address] [id number] [place] [address] May, [facility] [address] [id number] [place] [address] May, [facility] [address] [id number] [place] [address] May, [facility] [address] [id number] [place] [address] May, [facility] [address] [id number] [place] [address] Apr, [facility] [address] [id number] [place] [address] Apr, [facility] [address] [id number] [place] [address] Apr, [facility] [address] [id number] [place] [address] Apr, [facility] [address] [id number] [place] [address] March, [facility] [address] [id number] [place] [address] March, [facility] [address] [id number] [place] [address] March, [facility] [address] [id number] [place] [address] Feb, [facility] [address] [id number] [place] [address] Feb, [facility] [address] [id number] [place] [address] Jan, [facility] [address] [id number] [place] [address] Jan, [facility] [address] [id number] [place] [address] Jan, [facility] [address] [id number] [place] [address] Jan, [facility] [address] [id number] [place] [address] Jan, [facility] [address] [id number] [place] [address] Dec, [facility] [address] [id number] [place] [address] Dec, [facility] [address] [id number] [place] [address] Dec, [facility] [address] [id number] [place] [address] Dec, [facility] [address] [id number] [place] [address] 18 Dec, 2012 [facility] [address] [id number] [place] [address] Dec, [facility] [address] [id number] [place] [address] Dec, [facility] [address] [id number] [place] [address] Dec, [facility] [address] [id number] [place] [address] Nov, [facility] [address] [id number] [place] [address] Nov, [facility] [address] [id number] [place] [address] Nov, [facility] [address] [id number] [place] [address] Nov, [facility] [address] [id number] [place] [address] Nov, [facility] [address] [id number] [place] [address] Nov, [facility] [address] [id number] [place] [address] Nov, [facility] [address] [id number] [place] [address] Oct, [facility] [address] [id number] [place] [address] Oct, [facility] [address] [id number] [place] [address] Oct, [facility] [address] [id number] [place] [address] Oct, [facility] [address] [id number] [place] [address] Oct, [facility] [address] [id number] [place] [address] Oct, [facility] [address] [id number] [place] [address] Oct, [facility] [address] [id number] [place] [address] Oct, [facility] [address] [id number] [place] [address] Sep, [facility] [address] [id number] [place] [address] Sep, [facility] [address] [id number] [place] [address] Sep, [facility] [address] [id number] [place] [address] Sep, [facility] [address] [id number] [place] [address] Sep, [facility] [address] [id number] [place] [address] Sep, [facility] [address] [id number] [place] [address] Sep, [facility] [address] [id number] [place] [address] Sep, [facility] [address] [id number] [place] [address] Sep, [facility] [address] [id number] [place] [address] Sep, [facility] [address] [id number] [place] [address] Sep, [facility] [address] [id number] [place] [address] Sep, [facility] [address] [id number] [place] [address] Sep, [facility] [address] [facility] [id number] [place] [address] Sep, [facility] [address] [id number] [place] [address] Sep, [facility] [address] [id number] [place] [address] Sep, [facility] [address] [facility] [id number] [place] [address] Sep, [facility] [address] [facility] [id number] [place] [address] Sep, [facility] [address] [id number] [place] [address] Sep, [facility] [address] [id number] [place] [address] Sep, [facility] [address] [facility] [id number] [place] [address] Aug, [facility] [address] [id number] [place] [address] 31 Aug, 2012 [facility] [address] [id number] [place] [address] 29 Aug, 2012 [facility] [address] [id number] [place] [address] Aug, [facility] [address] [facility] [id number] [place] [address] Aug, [facility] [address] [facility] [id number] [place] [address] 18 Aug, 2012 [facility] [address] [id number] [place] [address] 18 Aug, 2012 [facility] [address] [id number] [place] [address] 17 Aug, 2012 [facility] [address] [id number] [place] [address] 16 Aug, 2012 [facility] [address] [id number] [place] [address] 16 Aug, 2012 [facility] [address] [id number] [place] [address] 15 Aug, 2012 [facility] [place] [facility] [address] [id number] [place] [address] 09 Aug, 2012 [facility] [address] [id number] [place] [address] 05 Aug, 2012 [facility] [address] [id number] [place] [address] 05 Aug, 2012 [facility] [address] [id number] [place] [address] 04 Aug, 2012 [facility] [address] [id number] [place] [address] 14 Jul, 2012 [facility] [address] [id number] [place] [address] 10 Jul, 2012 [facility] [address] [id number] [place] [address] Jun, [facility] [address] [id number] [place] [address] Jun, [facility] [place] [address] [id number] [place] [address] 31 May, 2012 [facility] [address] [id number] [place] [address] May, [facility] [place] [facility] [address] [id number] [place] [address] May, [facility] [place] [facility] [address] [id number] [place] [address] May, [facility] [place] [facility] [address] [id number] [place] [address] May, [facility] [place] [facility] [address] [id number] [place] [address] May, [facility] [place] [facility] [address] [id number] [place] [address] Apr, [facility] [address] [id number] [place] [address] Apr, [facility] [address] [id number] [place] [address] March, [facility] [address] [id number] [place] [address] March, [facility] [address] [id number] [place] [address] March, [facility] [place] [facility] [address] [id number] [place] [address] March, [facility] [place] [facility] [address] [id number] [place] [address] March, [facility] [address] [id number] [place] [address] March, [facility] [place] [facility] [address] [id number] [place] [address] Feb, [facility] [place] [facility] [address] [id number] [place] [address] Feb, [facility] [place] [facility] [address] [id number] [place] [address] Feb, [facility] [place] [facility] [address] [id number] [place] [address] Feb, [facility] [place] [facility] [address] [id number] [place] [address] 23 Feb, 2012 [facility] [address] [id number] [place] [address] 19 Feb, 2012 [facility] [place] [facility] [address] [id number] [place] [address] 10 Feb, 2012 [facility] [place] [facility] [address] [id number] [place] [address] Feb, [facility] [place] [facility] [address] [id number] [place] [address] 04 Feb, 2012 [facility] [place] [facility] [address] [id number] [place] [address] 30 Jan, 2012 [facility] [place] [facility] [address] [id number] [place] [address] 27 Jan, 2012 [facility] [place] [facility] [address] [id number] [place] [address] Jan, [facility] [place] [facility] [address] [id number] [place] [address] 22 Jan, 2012 [facility] [place] [facility] [address] [id number] [place] [address] Jan, [facility] [place] [facility] [address] [id number] [place] [address] 20 Jan, 2012 [facility] [place] [facility] [address] [id number] [place] [address] 14 Jan, 2012 [facility] [place] [facility] [address] [id number] [place] [address] Jan, [facility] [place] [facility] [address] [id number] [place] [address] Jan, [facility] [place] [facility] [address] [id number] [place] [address] 08 Jan, 2012 [facility] [place] [facility] [address] [id number] [place] [address] 07 Jan, 2012 [facility] [place] [facility] [address] [id number] [place] [address] Jan, [facility] [place] [facility] [address] [id number] [place] [address] Jan, [facility] [place] [facility] [address] [id number] [place] [address] Jan, [facility] [place] [facility] [address] [id number] [place] [address] Dec, [facility] [place] [facility] [address] [id number] [place] [address] Dec, [facility] [place] [facility] [address] [id number] [place] [address] Dec, [facility] [place] [facility] [address] [id number] [place] [address] Dec, [facility] [place] [facility] [address] [id number] [place] [address] 16 Dec, 2011 [facility] [place] [facility] [address] [id number] [place] [address] Dec, [facility] [place] [facility] [address] [facility] [id number] [place] [address] 08 Dec, 2011 [facility] [place] [facility] [address] [facility] [id number] [place] [address] Dec, [facility] [place] [facility] [address] [id number] [place] [address] Dec, [facility] [place] [facility] [address] [id number] [place] [address] Nov, [facility] [place] [facility] [address] [id number] [place] [address] Nov, [facility] [place] [facility] [address] [facility] [id number] [place] [address] Nov, [facility] [place] [facility] [address] [id number] [place] [address] Nov, [facility] [address] [id number] [place] [address] Oct, [facility] [place] [facility] [address] [id number] [place] [address] Oct, [facility] [place] [facility] [address] [id number] [place] [address] Oct, [facility] [place] [facility] [address] [id number] [place] [address] Oct, [facility] [place] [facility] [address] [id number] [place] [address] Oct, [facility] [place] [facility] [address] [id number] [place] [address] Oct, [facility] [place] [facility] [address] [facility] [id number] [place] [address] Oct, [facility] [place] [facility] [address] [id number] [place] [address] Sep, [facility] [place] [facility] [address] [facility] [id number] [place] [address] Sep, [facility] [place] [facility] [address] [facility] [id number] [place] [address] Sep, [facility] [place] [facility] [address] [id number] [place] [address] Sep, [facility] [place] [facility] [address] [id number] [place] [address] Sep, [facility] [place] [facility] [address] [id number] [place] [address] Sep, [facility] [place] [facility] [address] [facility] [id number] [place] [address] Sep, [facility] [place] [facility] [address] [facility] [id number] [place] [address] Sep, [facility] [place] [facility] [address] [id number] [place] [address] Sep, [facility] [place] [facility] [address] [id number] [place] [address] 30 Aug, 2011 [facility] [place] [facility] [address] [id number] [place] [address] Aug, [facility] [place] [facility] [address] [id number] [place] [address] Aug, [facility] [place] [facility] [address] [id number] [place] [address] May, [facility] [place] [facility] [address] [id number] [place] [address] Nov, [facility] [place] [facility] [address] [id number] [place] [address] 31 Oct, 2010 [facility] [place] [facility] [address] [id number] [place] [address] 30 Oct, 2010 [facility] [place] [facility] [address] [id number] [place] [address] Oct, [facility] [place] [facility] [address] [id number] [place] [address] Oct, [facility] [place] [facility] [address] [facility] [id number] [place] [address] Oct, [facility] [place] [facility] [address] [id number] [place] [address] Sep, [facility] [place] [facility] [address] [id number] [place] [address] Sep, [facility] [place] [facility] [address] [id number] [place] [address] 14 Jul, 2010 [facility] [place] [facility] [address] [id number] [place] [address] 31 Oct, 2009 [facility] [place] [facility] [address] [id number] [place] [address] Oct, [facility] [address] [facility] [id number] [place] [address] Oct, [facility] [address] [facility] [id number] [place] [address] Oct, [facility] [address] [facility] [id number] [place] [address] Sep, [facility] [address] [facility] [id number] [place] [address] Sep, [facility] [address] [facility] [id number] [place] [address] Sep, [facility] [address] [facility] [id number] [place] [address] Sep, [facility] [id number] [address] Sep, [facility] [address] [id number] [address] Jul, [facility] [address] [id number] [address] Apr, [facility] [address] [id number] [address] 12 Dec, 2008 IMMUNIZATIONS No Known Immunizations SOCIAL HISTORY Never Assessed REASON FOR VISIT EMR-[facility] PLAN OF CARE VITAL SIGNS MEDICATIONS Unknown [...]
[2019-06-14] MEDS ORDERED: NS 100 ML (IVPB) BAG IV ONE (11:30)
[2019-06-14] MEDS ORDERED: HOLD METFORMIN - RECEIVED CONTRAST 20 ML VIAL IV SCH (11:30)
[2019-06-14] MEDS ORDERED: IOHEXOL 350 MG/ML 100 ML (OMNIPAQUE 350) VIAL IV ONE (11:30)
--- OUTSIDE RECORDS SUMMARY | 2019-06-14 11:30 | XMS REPORT ---
Author Author Migration, Doctor Organization [facility] [place] [facility] Address Unknown Phone Unavailable Care Team Providers Care Assistant Printer Floor Covering Name Role Phone Migration, Doctor Unavailable Unavailable PROBLEMS Type Condition ICD9-CM Code CEY75-EM Code Onset Dates Condition Status SNOMED Code Problem Essential hypertension I10 Active 63972036 Problem Prediabetes R73.03 Active 111319178 Problem Reactive depression F32.9 Active 14146168 Problem Acquired hypothyroidism E03.9 Active 062694365 Problem Gastroesophageal reflux disease, esophagitis presence not specified K21.9 Active 144349933 Problem Mixed hyperlipidemia E78.2 Active 997117718 Problem Other chronic pain G89.29 Active 16654675 Problem Chronic obstructive pulmonary disease, unspecified COPD type J44.9 Active 47660187 Problem Cigarette nicotine dependence without complication F17.210 Active 37854857 Problem Sinusitis J32.9 Active 09461334 Problem Lumbago with sciatica, right side M54.41 Active [id number] Problem Chronic pain G89.29 Active 72567754 Problem Lumbago with sciatica, left side M54.42 Active 126624115 Problem DM neuro manif type II E11.49 Active 56017831 Problem Seizures R56.9 Active 13520895 Problem Iron deficiency anemia due to chronic blood loss D50.0 Active 986969919 Problem Seasonal allergies J30.2 Active [id number] ALLERGIES No Information ENCOUNTERS Encounter Location Date Diagnosis [facility] [address], [place] [address] Feb, [facility] [id number] [place] [address] Jan, [facility] [address] [place] [address] Jan, Acute cystitis with hematuria N30.01 and Dysuria R30.0 [facility] [address] [place] [address] Jan, [facility] [id number], [place] [address] Dec, [facility] [address], [place] [address] Dec, [facility] [address], [place] [address] Dec, [facility] [address] [place] [address] Dec, [facility] [address] [place] [address] Dec, Routine adult health maintenance Z00.00 ; Chronic obstructive pulmonary disease, unspecified COPD type J44.9 and Encounter for immunization Z23 [facility] [address], [place] [address] Nov, [facility] [address], [place] [address] Nov, UTI (urinary tract infection) N39.0 and Other chronic pain G89.29 [facility] [address], [place] [address] Nov, [facility] [address], [place] [address] Nov, [facility] [id number], [place] [address] Nov, Painful urination R30.9 and UTI (urinary tract infection) N39.0 [facility] [address], [place] [address] Nov, [facility] [id number] [address] Nov, UTI (urinary tract infection) N39.0 [facility] [address], [place] [address] Nov, Dysuria R30.0 ; UTI (urinary tract infection) N39.0 and Chronic pain G89.29 [place] [id number] [place] [address] Nov, [facility] [id number] [place] [address] Oct, Cough R05 [place] [address] [address] Oct, Sinusitis J32.9 [facility] [id number] [place] [address] Oct, [facility] [id number] [place] [address] Oct, UTI (urinary tract infection) N39.0 and URI (upper respiratory infection) J06.9 [facility] [id number] [place] [address] Sep, Pain in thoracic spine M54.6 [facility] [id number] [place] [address] Sep, Type 2 diabetes mellitus with hyperglycemia E11.65 [facility] [id number] [place] [address] Sep, Chronic obstructive pulmonary disease, unspecified COPD type J44.9 ; Abrasion of right ear canal, initial encounter S00.411A ; Cigarette nicotine dependence without complication F17.210 ; Right leg pain M79.604 and Seasonal allergies J30.2 [facility] [facility] [id number] [place] [address] Aug, [facility] [id number] [place] [address] Aug, [facility] [id number] [place] [address] Aug, Pain in thoracic spine M54.6 [place] [address] [address] Aug, [place] [address] [address] Aug, Chronic obstructive pulmonary disease, unspecified COPD type J44.9 ; Complete amputation of right foot, 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 ; Cigarette nicotine dependence without complication F17.210 and BMI 40.0-44.9, adult Z68.41 [place] [address] [address] Jul, [place] [address] [address] Jul, [place] [address] [address] Jul, Onychomycosis B35.1 ; Onychocryptosis L60.0 and DM neuro manif type II E11.49 [place] [address] [address] Jun, Pain in thoracic spine M54.[address] [address] Jun, Iron deficiency anemia due to chronic blood loss D50.0 and Hematochezia K92.[address] [address] Jun, Gastroenteritis K52.9 and Abnormal RBC indices R71.8 [place] [address] [address] Jun, [place] [address] [address] Jun, Chest congestion R09.89 and Seizures R56.[address] [address] May, Pain in thoracic spine M54.[address] [place] [address] May, [facility] [id number] [place] [address] May, [facility] [id number] [place] [address] May, [facility] [id number] [place] [address] May, Acute non-recurrent frontal sinusitis J01.10 and Dermatitis L30.9 [facility] [id number] [place] [address] May, [facility] [id number] [place] [address] May, Pain in thoracic spine M54.6 [facility] [id number] [place] [address] May, [facility] [id number] [place] [address] May, Acute nasopharyngitis J00 [facility] [id number] [place] [address] May, [facility] [id number] [place] [address] May, [facility] [id number] [place] [address] Apr, [facility] [id number] [place] [address] Apr, [facility] [id number] [place] [address] Apr, [facility] [id number] [place] [address] Apr, [facility] [address] [place] [address] Apr, Pain in right ankle and joints of right foot M25.571 [place] [id number] [place] [address] Apr, [facility] [id number] [place] [address] Apr, Bronchitis J40 ; Pain in right ankle and joints of right foot M25.571 ; Other chronic pain G89.29 ; Prediabetes R73.03 ; Chronic obstructive pulmonary disease, unspecified COPD type J44.9 and Cigarette nicotine dependence without complication F17.210 [facility] [id number] [place] [address] 13 Apr, 2018 Seasonal allergic rhinitis, unspecified trigger J30.2 [place] [id number] [place] [address] 08 Apr, 2018 Onychomycosis B35.1 ; Onychocryptosis L60.0 and DM neuro manif type II E11.49 [place] [id number] [place] [address] Apr, Reactive depression F32.9 ; Thoracic myofascial strain, initial encounter S29.019A and Leg cramps R25.2 [place] [id number] [place] [address] March, [place] [id number] [place] [address] March, Type 2 diabetes mellitus with hyperglycemia E11.65 [place] [id number] [place] [address] March, Reactive depression F32.9 [id number] [place] [address] March, Pain in thoracic spine M54.6 and Other chronic pain G89.29 [place] [id number] [place] [address] Feb, [place] [address] [address] Jan, Reactive depression F32.9 ; Essential hypertension I10 ; Gastroesophageal reflux disease, esophagitis presence not specified K21.9 ; Lumbago with sciatica, left side M54.42 and Lumbago with sciatica, right side M54.41 [place] [address] [address] Jan, Reactive depression F32.9 and Pharyngoesophageal dysphagia R13.14 [place] [address] [address] Jan, [address] [address] Jan, Encounter for immunization Z23 [address] [address] Jan, Onychomycosis B35.1 and DM neuro manif type II E11.49 [place] [address] [address] Jan, [place] [address] [address] Jan, Prediabetes R73.[address] [address] Dec, [place] [address] [address] Dec, Essential hypertension I10 ; Mixed hyperlipidemia E78.2 ; Acquired hypothyroidism E03.9 ; Reactive depression F32.9 and Prediabetes R73.03 [place] [address] [address] Dec, [place] [address] [address] Dec, [place] [address] Dec, DM neuro manif type II E11.49 [facility] [address], [place] [address] Dec, Bruise T14.8XXA ; Type 2 diabetes mellitus with hyperglycemia E11.65 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 [facility] [id number] [place] [address] Oct, [facility] [id number] [place] [address] March, Onychomycosis B35.1 and DM neuro manif type II E11.49 [facility] [id number] [place] [address] Jun, [facility] [id number] [place] [address] Jun, [facility] [id number] [place] [address] Jun, COPD with acute exacerbation 491.21 [facility] [id number] [place] [address] Apr, [facility] [id number] [place] [address] Feb, [facility] [address], [place] [address] Feb, [facility] [id number] [place] [address] Jan, [facility] [id number] [place] [address] Jan, [facility] [id number] [place] [address] Jan, [facility] [address], [place] [address] Jan, [facility] [address] [facility] [id number] [place] [address] 24 Jan, 2014 [facility] [place] [facility] [address] [id number] [place] [address] 23 Jan, 2014 [facility] [place] [facility] [address] [id number] [place] [address] 23 Jan, 2014 [facility] [place] [facility] [address] [id number] [place] [address] 23 Jan, 2014 [facility] [place] [facility] [address] [id number] [place] [address] 23 Jan, 2014 [facility] [place] [facility] [address] [id number] [place] [address] 19 Jan, 2014 [facility] [place] [facility] [address] [id number] [place] [address] 19 Jan, 2014 [facility] [place] [facility] [address] [id number] [place] [address] 18 Jan, 2014 [facility] [place] [facility] [address] [id number] [place] [address] 18 Jan, 2015 [facility] [place] [facility] [address] [id number] [place] [address] 16 Jan, 2014 [facility] [place] [facility] [address] [id number] [place] [address] 16 Jan, 2014 [facility] [place] [facility] [address] [id number] [place] [address] 16 Jan, 2014 [facility] [place] [facility] [address] [id number] [place] [address] 16 Jan, 2014 [facility] [place] [facility] [address] [id number] [place] [address] 15 Jan, 2014 [facility] [place] [facility] [address] [id number] [place] [address] 13 Jan, 2014 [facility] [place] [facility] [address] [id number] [place] [address] 13 Jan, 2015 [facility] [place] [facility] [address] [id number] [place] [address] 13 Jan, 2015 [facility] [place] [facility] [address] [id number] [place] [address] Jan, [facility] [place] [facility] [address] [facility] [id number] [place] [address] Jan, [facility] [place] [facility] [address] [id number] [place] [address] Jan, [facility] [place] [facility] [address] [id number] [place] [address] Jan, [facility] [place] [facility] [address] [id number] [place] [address] 24 Dec, 2014 [facility] [place] [facility] [address] [facility] [id number] [place] [address] Dec, [facility] [place] [facility] [address] [facility]] [id number] [place] [address] Dec, [facility] [place] [facility] [address] [facility]] [id number] [place] [address] Dec, [facility] [place] [facility] [address] [facility]] [id number] [place] [address] Dec, 2014 [facility] [place] [facility] [address] [facility]] [id number] [place] [address] Dec, 2014 [facility] [place] [facility] [address] [facility]] [id number] [place] [address] Dec, 2014 [facility] [place] [facility] [address] [facility]] [id number] [place] [address] Dec, 2014 [facility] [place] [facility] [address] [facility]] [id number] [place] [address] Dec, 2014 [facility] [place] [facility] [address] [facility]] [id number] [place] [address] Dec, 2014 [facility] [place] [facility] [address] [id number] [place] [address] Dec, [facility] [place] [facility] [address] [id number] [place] [address] Dec, [facility] [place] [facility] [address] [id number] [place] [address] Nov, [facility] [place] [facility] [address] [id number] [place] [address] Nov, [facility] [place] [facility] [address] [id number] [place] [address] Nov, [facility] [place] [facility] [address] [id number] [place] [address] Nov, [facility] [place] [facility] [address] [id number] [place] [address] Nov, [facility] [place] [facility] [address] [id number] [place] [address] Nov, [facility] [place] [facility] [address] [id number] [place] [address] Nov, [facility] [place] [facility] [address] [id number] [place] [address] Nov, [facility] [place] [facility] [address] [id number] [place] [address] Nov, [facility] [place] [facility] [address] [id number] [place] [address] Nov, [facility] [place] [facility] [address] [id number] [place] [address] Nov, [facility] [place] [facility] [address] [id number] [place] [address] Nov, [facility] [place] [facility] [address] [id number] [place] [address] Oct, [facility] [place] [facility] [address] [id number] [place] [address] 31 Oct, 2014 [facility] [place] [facility] [address] [id number] [place] [address] 30 Oct, 2014 [facility] [place] [facility] [address] [id number] [place] [address] 30 Oct, 2014 [facility] [place] [facility] [address] [id number] [place] [address] 29 Oct, 2014 [facility] [place] [facility] [address] [id number] [place] [address] 29 Oct, 2014 [facility] [place] [facility] [address] [id number] [place] [address] Oct, [facility] [place] [facility] [address] [id number] [place] [address] Oct, [facility] [place] [facility] [address] [id number] [place] [address] 17 Oct, 2014 [facility] [place] [facility] [address] [id number] [place] [address] 17 Oct, 2014 [facility] [place] [facility] [address] [id number] [place] [address] 16 Oct, 2014 [facility] [place] [facility] [address] [id number] [place] [address] 16 Oct, 2014 [facility] [place] [facility] [address] [id number] [place] [address] 15 Oct, 2014 [facility] [place] [facility] [address] [id number] [place] [address] 15 Oct, 2014 [facility] [place] [facility] [address] [id number] [place] [address] 08 Oct, 2014 [facility] [place] [facility] [address] [id number] [place] [address] 24 Sep, 2014 [facility] [place] [facility] [address] [id number] [place] [address] Sep, [facility] [place] [facility] [address] [id number] [place] [address] Sep, [facility] [place] [facility] [address] [id number] [place] [address] Sep, [facility] [place] [facility] [address] [id number] [place] [address] Aug, [facility] [place] [facility] [address] [id number] [place] [address] Aug, [facility] [place] [facility] [address] [id number] [place] [address] Aug, [facility] [place] [facility] [address] [id number] [place] [address] Aug, [facility] [place] [facility] [address] [id number] [place] [address] Aug, [facility] [place] [facility] [address] [id number] [place] [address] Aug, [facility] [place] [facility] [address] [id number] [place] [address] 29 Jul, 2014 [facility] [place] [facility] [address] [id number] [place] [address] 29 Jul, 2014 [facility] [place] [facility] [address] [id number] [place] [address] 15 Jul, 2014 [facility] [place] [facility] [address] [id number] [place] [address] 15 Jul, 2014 [facility] [place] [facility] [address] [id number] [place] [address] 08 Jul, 2014 [facility] [place] [facility] [address] [id number] [place] [address] 08 Jul, 2014 [facility] [place] [facility] [address] [id number] [place] [address] Jun, [facility] [place] [facility] [address] [id number] [place] [address] Jun, [facility] [place] [facility] [address] [id number] [place] [address] Jun, [facility] [place] [facility] [address] [id number] [place] [address] Jun, [facility] [place] [facility] [address] [id number] [place] [address] Jun, [facility] [place] [facility] [address] [id number] [place] [address] Jun, [facility] [place] [facility] [address] [id number] [place] [address] Jun, [facility] [place] [facility] [address] [id number] [place] [address] May, [facility] [place] [facility] [address] [id number] [place] [address] May, [facility] [place] [facility] [address] [id number] [place] [address] May, [facility] [place] [facility] [address] [id number] [place] [address] May, [facility] [place] [facility] [address] [id number] [place] [address] May, [facility] [place] [facility] [address] [id number] [place] [address] May, [facility] [place] [facility] [address] [id number] [place] [address] May, [facility] [place] [facility] [address] [id number] [place] [address] May, [facility] [place] [facility] [address] [id number] [place] [address] May, [facility] [place] [facility] [address] [id number] [place] [address] May, [facility] [place] [facility] [address] [id number] [place] [address] May, [facility] [place] [facility] [address] [id number] [place] [address] May, [facility] [place] [facility] [address] [id number] [place] [address] Apr, [facility] [place] [facility] [address] [id number] [place] [address] Apr, [facility] [place] [facility] [address] [id number] [place] [address] Apr, [facility] [place] [facility] [address] [id number] [place] [address] Apr, [facility] [place] [facility] [address] [id number] [place] [address] Apr, [facility] [place] [facility] [address] [id number] [place] [address] Apr, [facility] [place] [facility] [address] [id number] [place] [address] Apr, [facility] [place] [facility] [address] [id number] [place] [address] Apr, [facility] [place] [facility] [address] [id number] [place] [address] Apr, [facility] [place] [facility] [address] [id number] [place] [address] Apr, [facility] [place] [facility] [address] [id number] [place] [address] March, [facility] [place] [facility] [address] [id number] [place] [address] March, [facility] [place] [facility] [address] [id number] [place] [address] March, [facility] [place] [facility] [address] [id number] [place] [address] March, [facility] [place] [facility] [address] [id number] [place] [address] March, [facility] [place] [facility] [address] [id number] [place] [address] March, [facility] [place] [facility] [address] [id number] [place] [address] Feb, [facility] [place] [facility] [address] [id number] [place] [address] Feb, [facility] [place] [facility] [address] [id number] [place] [address] Feb, [facility] [place] [facility] [address] [id number] [place] [address] Feb, [facility] [place] [facility] [address] [id number] [place] [address] Feb, [facility] [place] [facility] [address] [id number] [place] [address] Feb, [facility] [place] [facility] [address] [id number] [place] [address] Feb, [facility] [place] [facility] [address] [id number] [place] [address] Feb, [facility] [place] [facility] [address] [id number] [place] [address] Feb, [facility] [place] [facility] [address] [id number] [place] [address] Feb, [facility] [place] [facility] [address] [id number] [place] [address] Jan, [facility] [place] [facility] [address] [id number] [place] [address] Jan, [facility] [place] [facility] [address] [id number] [place] [address] Jan, [facility] [place] [facility] [address] [id number] [place] [address] Jan, [facility] [place] [facility] [address] [id number] [place] [address] Jan, [facility] [place] [facility] [address] [id number] [place] [address] Jan, [facility] [place] [facility] [address] [id number] [place] [address] Jan, [facility] [place] [facility] [address] [id number] [place] [address] Jan, [facility] [place] [facility] [address] [id number] [place] [address] Dec, [facility] [place] [facility] [address] [id number] [place] [address] Dec, [facility] [place] [facility] [address] [id number] [place] [address] Dec, [facility] [place] [facility] [address] [id number] [place] [address] Dec, [facility] [place] [facility] [address] [id number] [place] [address] Dec, [facility] [place] [facility] [address] [id number] [place] [address] Dec, [facility] [place] [facility] [address] [id number] [place] [address] Dec, [facility] [place] [facility] [address] [id number] [place] [address] Dec, [facility] [place] [facility] [address] [id number] [place] [address] Nov, [facility] [place] [facility] [address] [id number] [place] [address] Nov, [facility] [place] [facility] [address] [id number] [place] [address] Nov, [facility] [place] [facility] [address] [id number] [place] [address] Nov, [facility] [place] [facility] [address] [id number] [place] [address] Nov, [facility] [place] [facility] [address] [id number] [place] [address] Nov, [facility] [place] [facility] [address] [id number] [place] [address] Nov, [facility] [place] [facility] [address] [id number] [place] [address] Nov, [facility] [place] [facility] [address] [id number] [place] [address] Nov, [facility] [place] [facility] [address] [id number] [place] [address] Nov, [facility] [place] [facility] [address] [id number] [place] [address] Nov, [facility] [address] [id number] [place] [address] Oct, [facility] [place] [facility] [address] [id number] [place] [address] Oct, [facility] [place] [facility] [address] [id number] [place] [address] Oct, [facility] [place] [facility] [address] [id number] [place] [address] Oct, [facility] [place] [facility] [address] [id number] [place] [address] Sep, [facility] [place] [facility] [address] [id number] [place] [address] Sep, [facility] [place] [facility] [address] [id number] [place] [address] Sep, [facility] [place] [facility] [address] [id number] [place] [address] Sep, [facility] [place] [facility] [address] [id number] [place] [address] Aug, [facility] [place] [facility] [address] [id number] [place] [address] Aug, [facility] [place] [facility] [address] [id number] [place] [address] Aug, [facility] [place] [facility] [address] [id number] [place] [address] Aug, [facility] [place] [facility] [address] [id number] [place] [address] Aug, [facility] [place] [facility] [address] [id number] [place] [address] Aug, [facility] [place] [facility] [address] [id number] [place] [address] Aug, [facility] [place] [facility] [address] [id number], [place] [address] Aug, [facility] [place] [facility] [address] [id number] [place] [address] 28 Jul, 2013 [facility] [place] [facility] [address] [id number], [place] [address] 27 Jul, 2013 [facility] [place] [facility] [address] [id number], [place] [address] 26 Jul, 2012 [facility] [place] [facility] [address] [id number], [place] [address] 24 Jul, 2012 [facility] [place] [facility] [address] [id number] [place] [address] 24 Jul, 2012 [facility] [place] [facility] [address] [id number], [place] [address] 23 Jul, 2012 [facility] [place] [facility] [address] [id number], [place] [address] 19 Jul, 2012 [facility] [place] [facility] [address] [id number] [place] [address] 18 Sep, 2012 [facility] [place] [facility] [address] [id number] [place] [address] 17 Sep, 2012 [facility] [place] [facility] [address] [id number] [place] [address] 16 Jul, 2012 [facility] [place] [facility] [address] [id number] [place] [address] 13 Jul, 2012 [facility] [place] [facility] [address] [id number] [place] [address] 13 Jul, 2012 [facility] [place] [facility] [address] [id number] [place] [address] 12 Jul, 2012 [facility] [place] [facility] [address] [id number] [place] [address] 11 Jul, 2012 [facility] [place] [facility] [address] [id number] [place] [address] 04 Jul, 2012 [facility] [place] [facility] [address] [id number] [place] [address] 30 Jun, 2013 [facility] [place] [facility] [address] [id number] [place] [address] Jun, [facility] [place] [facility] [address] [id number] [place] [address] Jun, [facility] [place] [facility] [address] [id number] [place] [address] May, [facility] [place] [facility] [address] [id number] [place] [address] May, [facility] [place] [facility] [address] [id number] [place] [address] May, [facility] [place] [facility] [address] [id number] [place] [address] May, [facility] [place] [facility] [address] [id number] [place] [address] Apr, [facility] [place] [facility] [address] [id number] [place] [address] Apr, [facility] [address] [id number] [place] [address] Apr, [facility] [place] [facility] [address] [id number] [place] [address] Apr, [facility] [address] [id number] [place] [address] March, [facility] [place] [facility] [address] [id number] [place] [address] March, [facility] [address] [id number] [place] [address] March, [facility] [address] [id number] [place] [address] Feb, [facility] [address] [id number] [place] [address] Feb, [facility] [address] [id number] [place] [address] Jan, [facility] [address] [id number] [place] [address] Jan, [facility] [address] [id number] [place] [address] Jan, [facility] [address] [id number] [place] [address] Jan, [facility] [address] [id number] [place] [address] Jan, [facility] [place] [facility] [address] [id number] [place] [address] Dec, [facility] [place] [facility] [address] [id number] [place] [address] Dec, [facility] [address] [id number] [place] [address] Dec, [facility] [address] [id number] [place] [address] Dec, [facility] [facility] [address] [id number] [place] [address] 18 Dec, 2012 [facility] [address] [id number] [place] [address] Dec, [facility] [place] [address] [id number] [place] [address] Dec, [facility] [place] [facility] [address] [id number] [place] [address] Dec, [facility] [place] [facility] [address] [id number] [place] [address] Nov, [facility] [address] [id number] [place] [address] Nov, [facility] [address] [id number] [place] [address] Nov, [facility] [address] [id number] [place] [address] Nov, [facility] [address] [id number] [place] [address] Nov, [facility] [address] [id number] [place] [address] Nov, [facility] [address] [id number] [place] [address] Nov, [facility] [address] [id number] [place] [address] Oct, [facility] [place] [facility] [address] [id number] [place] [address] Oct, [facility] [address] [id number] [place] [address] Oct, [facility] [place] [facility] [address] [id number] [place] [address] Oct, [facility] [place] [facility] [address] [id number] [place] [address] Oct, [facility] [place] [facility] [address] [id number] [place] [address] Oct, [facility] [place] [facility] [address] [id number] [place] [address] Oct, [facility] [place] [facility] [address] [id number] [place] [address] Oct, [facility] [place] [facility] [address] [id number] [place] [address] Sep, [facility] [place] [facility] [address] [id number] [place] [address] Sep, [facility] [place] [facility] [address] [id number] [place] [address] Sep, [facility] [place] [facility] [address] [id number] [place] [address] Sep, [facility] [place] [facility] [address] [id number] [place] [address] Sep, [facility] [place] [facility] [address] [id number] [place] [address] Sep, [facility] [place] [facility] [address] [id number] [place] [address] Sep, [facility] [place] [facility] [address] [id number] [place] [address] Sep, [facility] [place] [facility] [address] [id number] [place] [address] Sep, [facility] [place] [facility] [address] [id number] [place] [address] Sep, [facility] [place] [facility] [address] [id number] [place] [address] Sep, [facility] [place] [facility] [address] [id number] [place] [address] Sep, [facility] [place] [facility] [address] [id number] [place] [address] Sep, [facility] [place] [facility] [address] [facility] [id number] [place] [address] Sep, [facility] [place] [facility] [address] [id number] [place] [address] Sep, [facility] [place] [facility] [address] [id number] [place] [address] Sep, [facility] [place] [facility] [address] [facility] [id number] [place] [address] Sep, [facility] [place] [facility] [address] [facility] [id number] [place] [address] Sep, [facility] [place] [facility] [address] [id number], [place] [address] Sep, [facility] [place] [facility] [address] [id number], [place] [address] Sep, [facility] [place] [facility] [address] [facility]] [id number], [place] [address] Aug, [facility] [place] [facility] [address] [id number], [place] [address] 31 Aug, 2012 [facility] [place] [facility] [address] [id number], [place] [address] 29 Aug, 2012 [facility] [place] [facility] [address] [id number], [place] [address] Aug, [facility] [place] [facility] [address] [facility] [id number], [place] [address] Aug, [facility] [place] [facility] [address] [facility] [id number], [place] [address] 18 Aug, 2012 [facility] [place] [facility] [address] [id number] [place] [address] 18 Aug, 2012 [facility] [place] [facility] [address] [id number] [place] [address] 17 Aug, 2012 [facility] [place] [facility] [address] [id number] [place] [address] 16 Aug, 2012 [facility] [place] [facility] [address] [id number] [place] [address] 16 Aug, 2012 [facility] [place] [facility] [address] [id number] [place] [address] 15 Aug, 2012 [facility] [place] [facility] [address] [id number] [place] [address] 09 Aug, 2012 [facility] [place] [facility] [address] [id number] [place] [address] 05 Aug, 2012 [facility] [place] [facility] [address] [id number] [place] [address] 05 Aug, 2012 [facility] [place] [facility] [address] [id number] [place] [address] 04 Aug, 2012 [facility] [place] [facility] [address] [id number] [place] [address] 14 Jul, 2012 [facility] [place] [facility] [address] [id number] [place] [address] 10 Jul, 2012 [facility] [place] [facility] [address] [id number] [place] [address] Jun, [facility] [place] [facility] [address] [id number] [place] [address] Jun, [facility] [place] [facility] [address] [id number] [place] [address] 31 May, 2012 [facility] [place] [facility] [address] [id number] [place] [address] May, [facility] [place] [facility] [address] [id number] [place] [address] May, [facility] [place] [facility] [address] [id number] [place] [address] May, [facility] [place] [facility] [address] [id number] [place] [address] May, [facility] [place] [facility] [address] [id number] [place] [address] May, [facility] [place] [facility] [address] [id number] [place] [address] Apr, [facility] [address] [id number] [place] [address] Apr, [facility] [place] [facility] [address] [id number] [place] [address] March, [facility] [address] [id number] [place] [address] March, [facility] [address] [id number] [place] [address] March, [facility] [place] [facility] [address] [id number] [place] [address] March, [facility] [place] [facility] [address] [id number] [place] [address] March, [facility] [place] [facility] [address] [id number] [place] [address] March, [facility] [place] [facility] [address] [id number] [place] [address] Feb, [facility] [place] [facility] [address] [id number] [place] [address] Feb, [facility] [place] [facility] [address] [id number] [place] [address] Feb, [facility] [place] [facility] [address] [id number] [place] [address] Feb, [facility] [place] [facility] [address] [id number] [place] [address] 23 Feb, 2012 [facility] [address] [id number] [place] [address] 19 Feb, 2012 [facility] [place] [facility] [address] [id number] [place] [address] 10 Feb, 2012 [facility] [place] [facility] [address] [id number] [place] [address] Feb, [facility] [place] [facility] [address] [id number] [place] [address] 04 Feb, 2012 [facility] [place] [facility] [address] [id number] [place] [address] 30 Jan, 2012 [facility] [place] [facility] [address] [id number] [place] [address] 27 Jan, 2012 [facility] [place] [facility] [address] [id number] [place] [address] Jan, [facility] [place] [facility] [address] [id number] [place] [address] 22 Jan, 2012 [facility] [place] [facility] [address] [id number] [place] [address] Jan, [facility] [place] [facility] [address] [id number] [place] [address] 20 Jan, 2012 [facility] [place] [facility] [address] [id number] [place] [address] 14 Jan, 2012 [facility] [place] [facility] [address] [id number] [place] [address] Jan, [facility] [place] [facility] [address] [id number] [place] [address] Jan, [facility] [place] [facility] [address] [id number] [place] [address] 08 Jan, 2012 [facility] [place] [facility] [address] [id number] [place] [address] 07 Jan, 2012 [facility] [place] [facility] [address] [id number] [place] [address] Jan, [facility] [place] [facility] [address] [id number] [place] [address] Jan, [facility] [place] [facility] [address] [id number] [place] [address] Jan, [facility] [place] [facility] [address] [id number] [place] [address] Dec, [facility] [place] [facility] [address] [id number] [place] [address] Dec, [facility] [place] [facility] [address] [id number] [place] [address] Dec, [facility] [place] [facility] [address] [id number] [place] [address] Dec, [facility] [place] [facility] [address] [id number] [place] [address] 16 Dec, 2011 [facility] [place] [facility] [address] [id number] [place] [address] Dec, [facility] [place] [facility] [address] [facility]NOTE [facility]] [id number] [place] [address] 08 Dec, 2011 [facility] [place] [facility] [address] [facility]NOTE [facility]] [id number] [place] [address] Dec, [facility] [place] [facility] [address] [id number], [place] [address] Dec, [facility] [place] [facility] [address] [id number] [place] [address] Nov, [facility] [place] [facility] [address] [id number] [place] [address] Nov, [facility] [place] [facility] [address] [facility]NOTE [facility]] [id number], [place] [address] Nov, [facility] [place] [facility] [address] [id number], [place] [address] Nov, [facility] [address] [id number] [place] [address] Oct, [facility] [place] [facility] [address] [id number] [place] [address] Oct, [facility] [place] [facility] [address] [id number] [place] [address] Oct, [facility] [place] [facility] [address] [id number] [place] [address] Oct, [facility] [place] [facility] [address] [id number] [place] [address] Oct, [facility] [place] [facility] [address] [id number] [place] [address] Oct, [facility] [place] [facility] [address] [facility]] [id number] [place] [address] Oct, [facility] [place] [facility] [address] [id number] [place] [address] Sep, [facility] [place] [facility] [address] [facility]] [id number] [place] [address] Sep, [facility] [place] [facility] [address] [facility]NOTE [facility]] [id number] [place] [address] Sep, [facility] [place] [facility] [address] [id number], [place] [address] Sep, [facility] [place] [facility] [address] [id number], [place] [address] Sep, [facility] [place] [facility] [address] [id number] [place] [address] Sep, [facility] [place] [facility] [address] [facility]] [id number] [place] [address] Sep, [facility] [place] [facility] [address] [facility]] [id number] [place] [address] Sep, [facility] [place] [facility] [address] [id number] [place] [address] Sep, [facility] [place] [facility] [address] [id number] [place] [address] 30 Aug, 2011 [facility] [place] [facility] [address] [id number] [place] [address] Aug, [facility] [place] [facility] [address] [id number] [place] [address] Aug, [facility] [place] [facility] [address] [id number] [place] [address] May, [facility] [place] [facility] [address] [id number] [place] [address] Nov, [facility] [place] [facility] [address] [id number] [place] [address] 31 Oct, 2010 [facility] [place] [facility] [address] [id number] [place] [address] 30 Oct, 2010 [facility] [place] [facility] [address] [id number] [place] [address] Oct, [facility] [place] [facility] [address] [id number] [place] [address] Oct, [facility] [place] [facility] [address] [facility]] [id number] [place] [address] Oct, [facility] [place] [facility] [address] [id number] [place] [address] Sep, [facility] [place] [facility] [address] [id number] [place] [address] Sep, [facility] [place] [facility] [address] [id number] [place] [address] 14 Jul, 2010 [facility] [place] [facility] [address] [id number] [place] [address] 31 Oct, 2009 [facility] [place] [facility] [address] [id number] [place] [address] Oct, [facility] [address] [facility]NOTE 3] [id number], [place] [address] Oct, [facility] [address] [facility]NOTE [facility]] [id number], [place] [address] Oct, [facility] [address] [facility]NOTE 3] [id number], [place] [address] Sep, [facility] [address] [facility]NOTE 3] [id number], [place] [address] Sep, [facility] [address] [facility]NOTE 3] [id number], [place] [address] Sep, [facility] [address] [facility] 3] [id number], [place] [address] Sep, [facility] [id number], [place] [address] Sep, [facility] [address] [id number], [place] [address] Jul, [facility] [address] [id number], [place] [address] Apr, [facility] [address] [id number], [place] [address] 12 Dec, 2008 IMMUNIZATIONS No Known Immunizations SOCIAL HISTORY Never Assessed REASON FOR VISIT EMR-[facility] PLAN OF CARE VITAL SIGNS MEDICATIONS Unknown [...]
--- OUTSIDE RECORDS SUMMARY | 2019-06-14 11:31 | XMS REPORT ---
Author Author Migration, Doctor Organization [facility] Address Unknown Phone Unavailable Care Team Providers Care Customer Account Executive Name Role Phone Migration, Doctor Unavailable Unavailable PROBLEMS Type Condition ICD9-CM Code MQU38-AH Code Onset Dates Condition Status SNOMED Code Problem Essential hypertension I10 Active 44666021 Problem Prediabetes R73.03 Active 823748940 Problem Reactive depression F32.9 Active 82749239 Problem Acquired hypothyroidism E03.9 Active 918341252 Problem Gastroesophageal reflux disease, esophagitis presence not specified K21.9 Active 704078729 Problem Mixed hyperlipidemia E78.2 Active 062445959 Problem Other chronic pain G89.29 Active 97943047 Problem Chronic obstructive pulmonary disease, unspecified COPD type J44.9 Active 44873959 Problem Cigarette nicotine dependence without complication F17.210 Active 05934891 Problem Sinusitis J32.9 Active 36605306 Problem Lumbago with sciatica, right side M54.41 Active [id number] Problem Chronic pain G89.29 Active 75874767 Problem Lumbago with sciatica, left side M54.42 Active 238462660 Problem DM neuro manif type II E11.49 Active 98640349 Problem Seizures R56.9 Active 87338106 Problem Iron deficiency anemia due to chronic blood loss D50.0 Active 488429063 Problem Seasonal allergies J30.2 Active 738469868 ALLERGIES No Information ENCOUNTERS Encounter Location Date Diagnosis [facility] [address], [place] [address] Feb, [facility] [id number] [place] [address] Jan, [facility] [id number] [place] [address] Jan, Acute cystitis with hematuria N30.01 and Dysuria R30.0 [facility] [id number] [place] [address] Jan, [facility] [id number], [place] [address] Dec, [facility] [address], [place] [address] Dec, [facility] [address], [place] [address] Dec, [facility] [id number] [place] [address] Dec, [facility] [id number] [place] [address] Dec, Routine adult health maintenance Z00.00 ; Chronic obstructive pulmonary disease, unspecified COPD type J44.9 and Encounter for immunization Z23 [facility] [address], [place] [address] Nov, [facility] [address], [place] [address] Nov, UTI (urinary tract infection) N39.0 and Other chronic pain G89.29 [facility] [address], [place] [address] Nov, [facility] [address], [place] [address] Nov, [facility] [id number], [place] [address] Nov, Painful urination R30.9 and UTI (urinary tract infection) N39.0 [facility] [address], [place] [address] Nov, [facility] [id number], [place] [address] Nov, UTI (urinary tract infection) N39.0 [facility] [address], [place] [address] Nov, Dysuria R30.0 ; UTI (urinary tract infection) N39.0 and Chronic pain G89.29 [facility] [id number] [place] [address] Nov, [facility] [id number] [place] [address] Oct, Cough R05 [place] [address] [address] Oct, Sinusitis J32.9 [facility] [id number] [place] [address] Oct, [facility] [id number] [place] [address] Oct, UTI (urinary tract infection) N39.0 and URI (upper respiratory infection) J06.9 [facility] [id number] [place] [address] Sep, Pain in thoracic spine M54.6 [facility] [id number] [place] [address] Sep, Type 2 diabetes mellitus with hyperglycemia E11.65 [facility] [id number] [place] [address] Sep, Chronic obstructive pulmonary disease, unspecified COPD type J44.9 ; Abrasion of right ear canal, initial encounter S00.411A ; Cigarette nicotine dependence without complication F17.210 ; Right leg pain M79.604 and Seasonal allergies J30.2 [facility] [id number] [place] [address] Aug, [facility] [id number] [place] [address] Aug, [facility] [id number] [place] [address] Aug, Pain in thoracic spine M54.6 [facility] [address] [address] Aug, [facility] [address] [address] Aug, Chronic obstructive pulmonary disease, unspecified COPD type J44.9 ; Complete amputation of right foot, 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 ; Cigarette nicotine dependence without complication F17.210 and BMI 40.0-44.9, adult Z68.41 [place] [place] [address] [address] Jul, [facility] [address] [address] Jul, [facility] [address] [address] Jul, Onychomycosis B35.1 ; Onychocryptosis L60.0 and DM neuro manif type II E11.49 [facility] [address] [address] Jun, Pain in thoracic spine M54.[address] [address] Jun, Iron deficiency anemia due to chronic blood loss D50.0 and Hematochezia K92.[address] [address] Jun, Gastroenteritis K52.9 and Abnormal RBC indices R71.8 [facility] [address] [address] Jun, [facility] [address] [address] Jun, Chest congestion R09.89 and Seizures R56.[address] [address] May, Pain in thoracic spine M54.[address] [place] [address] May, [facility] [id number] [place] [address] May, [facility] [id number] [place] [address] May, [facility] [id number] [place] [address] May, Acute non-recurrent frontal sinusitis J01.10 and Dermatitis L30.9 [facility] [id number] [place] [address] May, [facility] [id number] [place] [address] May, Pain in thoracic spine M54.6 [facility] [id number] [place] [address] May, [facility] [id number] [place] [address] May, Acute nasopharyngitis J00 [facility] [id number] [place] [address] May, [facility] [id number] [place] [address] May, [facility] [id number] [place] [address] Apr, [facility] [id number] [place] [address] Apr, [facility] [id number] [place] [address] Apr, [facility] [id number] [place] [address] Apr, [facility] [id number] [place] [address] Apr, Pain in right ankle and joints of right foot M25.571 [facility] [id number] [place] [address] Apr, [facility] [id number] [place] [address] Apr, Bronchitis J40 ; Pain in right ankle and joints of right foot M25.571 ; Other chronic pain G89.29 ; Prediabetes R73.03 ; Chronic obstructive pulmonary disease, unspecified COPD type J44.9 and Cigarette nicotine dependence without complication F17.210 [facility] [id number] [place] [address] 13 Apr, 2018 Seasonal allergic rhinitis, unspecified trigger J30.2 [facility] [id number] [place] [address] 08 Apr, 2018 Onychomycosis B35.1 ; Onychocryptosis L60.0 and DM neuro manif type II E11.49 [facility] [id number] [place] [address] Apr, Reactive depression F32.9 ; Thoracic myofascial strain, initial encounter S29.019A and Leg cramps R25.2 [facility] [id number] [place] [address] March, [facility] [id number] [place] [address] March, Type 2 diabetes mellitus with hyperglycemia E11.65 [facility] [id number] [place] [address] March, Reactive depression F32.9 [id number] [place] [address] March, Pain in thoracic spine M54.6 and Other chronic pain G89.29 [facility] [id number] [place] [address] Feb, [place] [address] [address] Jan, Reactive depression F32.9 ; Essential hypertension I10 ; Gastroesophageal reflux disease, esophagitis presence not specified K21.9 ; Lumbago with sciatica, left side M54.42 and Lumbago with sciatica, right side M54.41 [place] [address] [address] Jan, Reactive depression F32.9 and Pharyngoesophageal dysphagia R13.14 [place] [address] [address] Jan, [address] [address] Jan, Encounter for immunization Z23 [address] [address] Jan, Onychomycosis B35.1 and DM neuro manif type II E11.49 [place] [address] [address] Jan, [place] [place] [address] [address] Jan, Prediabetes R73.[address] [address] Dec, [place] [address] [address] Dec, Essential hypertension I10 ; Mixed hyperlipidemia E78.2 ; Acquired hypothyroidism E03.9 ; Reactive depression F32.9 and Prediabetes R73.03 [place] [address] [address] Dec, [place] [place] [address] [address] Dec, [facility] [place] [id number] Dec, DM neuro manif type II E11.49 [facility] [address], [place] [address] Dec, Bruise T14.8XXA ; Type 2 diabetes mellitus with hyperglycemia E11.65 and 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 [facility] [id number] [place] [address] Oct, [facility] [id number] [place] [address] March, Onychomycosis B35.1 and DM neuro manif type II E11.49 [facility] [id number] [place] [address] Jun, [facility] [id number] [place] [address] Jun, [facility] [id number] [place] [address] Jun, COPD with acute exacerbation 491.21 [facility] [id number] [place] [address] Apr, [facility] [id number] [place] [address] Feb, [facility] [address], [place] [address] Feb, [facility] [id number] [place] [address] Jan, [facility] [id number] [place] [address] Jan, [facility] [id number] [place] [address] Jan, [facility] [address], [place] [address] Jan, [facility] [address] [facility] [id number] [place] [address] 24 Jan, 2014 [facility] [place] [facility] [address] [id number] [place] [address] 23 Jan, 2014 [facility] [place] [facility] [address] [id number] [place] [address] 23 Jan, 2014 [facility] [place] [facility] [address] [id number] [place] [address] 23 Jan, 2014 [facility] [place] [facility] [address] [id number] [place] [address] 23 Jan, 2014 [facility] [place] [facility] [address] [id number] [place] [address] 19 Jan, 2014 [facility] [place] [facility] [address] [id number] [place] [address] 19 Jan, 2014 [facility] [place] [facility] [address] [id number] [place] [address] 18 Jan, 2014 [facility] [place] [facility] [address] [id number] [place] [address] 18 Jan, 2015 [facility] [place] [facility] [address] [id number] [place] [address] 16 Jan, 2014 [facility] [place] [facility] [address] [id number] [place] [address] 16 Jan, 2014 [facility] [place] [facility] [address] [id number] [place] [address] 16 Jan, 2014 [facility] [place] [facility] [address] [id number] [place] [address] 16 Jan, 2014 [facility] [place] [facility] [address] [id number] [place] [address] 15 Jan, 2014 [facility] [place] [facility] [address] [id number] [place] [address] 13 Jan, 2014 [facility] [place] [facility] [address] [id number] [place] [address] 13 Jan, 2015 [facility] [place] [facility] [address] [id number] [place] [address] 13 Jan, 2015 [facility] [place] [facility] [address] [id number] [place] [address] Jan, [facility] [place] [facility] [address] [facility] [id number] [place] [address] Jan, [facility] [place] [facility] [address] [id number] [place] [address] Jan, [facility] [place] [facility] [address] [id number] [place] [address] Jan, [facility] [place] [facility] [address] [id number] [place] [address] 24 Dec, 2014 [facility] [place] [facility] [address] [facility] [id number] [place] [address] Dec, [facility] [place] [facility] [address] [facility] [id number] [place] [address] Dec, [facility] [place] [facility] [address] [facility] [id number] [place] [address] Dec, [facility] [place] [facility] [address] [facility] [id number] [place] [address] Dec, 2014 [facility] [place] [facility] [address] [facility] [id number] [place] [address] Dec, 2014 [facility] [place] [facility] [address] [facility] [id number] [place] [address] Dec, 2014 [facility] [place] [facility] [address] [facility] [id number] [place] [address] Dec, 2014 [facility] [place] [facility] [address] [facility] [id number] [place] [address] Dec, 2014 [facility] [place] [facility] [address] [facility] [id number] [place] [address] Dec, 2014 [facility] [place] [facility] [address] [id number] [place] [address] Dec, [facility] [place] [facility] [address] [id number] [place] [address] Dec, [facility] [place] [facility] [address] [id number] [place] [address] Nov, [facility] [place] [facility] [address] [id number] [place] [address] Nov, [facility] [place] [facility] [address] [id number] [place] [address] Nov, [facility] [place] [facility] [address] [id number] [place] [address] Nov, [facility] [place] [facility] [address] [id number] [place] [address] Nov, [facility] [place] [facility] [address] [id number] [place] [address] Nov, [facility] [place] [facility] [address] [id number] [place] [address] Nov, [facility] [place] [facility] [address] [id number] [place] [address] Nov, [facility] [place] [facility] [address] [id number] [place] [address] Nov, [facility] [place] [facility] [address] [id number] [place] [address] Nov, [facility] [place] [facility] [address] [id number] [place] [address] Nov, [facility] [place] [facility] [address] [id number] [place] [address] Nov, [facility] [place] [facility] [address] [id number] [place] [address] Oct, [facility] [place] [facility] [address] [id number] [place] [address] 31 Oct, 2014 [facility] [place] [facility] [address] [id number] [place] [address] 30 Oct, 2014 [facility] [place] [facility] [address] [id number] [place] [address] 30 Oct, 2014 [facility] [place] [facility] [address] [id number] [place] [address] 29 Oct, 2014 [facility] [place] [facility] [address] [id number] [place] [address] 29 Oct, 2014 [facility] [place] [facility] [address] [id number] [place] [address] Oct, [facility] [place] [facility] [address] [id number] [place] [address] Oct, [facility] [place] [facility] [address] [id number] [place] [address] 17 Oct, 2014 [facility] [place] [facility] [address] [id number] [place] [address] 17 Oct, 2014 [facility] [place] [facility] [address] [id number] [place] [address] 16 Oct, 2014 [facility] [place] [facility] [address] [id number] [place] [address] 16 Oct, 2014 [facility] [place] [facility] [address] [id number] [place] [address] 15 Oct, 2014 [facility] [place] [facility] [address] [id number] [place] [address] 15 Oct, 2014 [facility] [place] [facility] [address] [id number] [place] [address] 08 Oct, 2014 [facility] [place] [facility] [address] [id number] [place] [address] 24 Sep, 2014 [facility] [place] [facility] [address] [id number] [place] [address] Sep, [facility] [place] [facility] [address] [id number] [place] [address] Sep, [facility] [place] [facility] [address] [id number] [place] [address] Sep, [facility] [place] [facility] [address] [id number] [place] [address] Aug, [facility] [place] [facility] [address] [id number] [place] [address] Aug, [facility] [place] [facility] [address] [id number] [place] [address] Aug, [facility] [place] [facility] [address] [id number] [place] [address] Aug, [facility] [place] [facility] [address] [id number] [place] [address] Aug, [facility] [place] [facility] [address] [id number] [place] [address] Aug, [facility] [place] [facility] [address] [id number] [place] [address] 29 Jul, 2014 [facility] [place] [facility] [address] [id number] [place] [address] 29 Jul, 2014 [facility] [place] [facility] [address] [id number] [place] [address] 15 Jul, 2014 [facility] [place] [facility] [address] [id number] [place] [address] 15 Jul, 2014 [facility] [place] [facility] [address] [id number] [place] [address] 08 Jul, 2014 [facility] [place] [facility] [address] [id number] [place] [address] 08 Jul, 2014 [facility] [place] [facility] [address] [id number] [place] [address] Jun, [facility] [place] [facility] [address] [id number] [place] [address] Jun, [facility] [place] [facility] [address] [id number] [place] [address] Jun, [facility] [place] [facility] [address] [id number] [place] [address] Jun, [facility] [place] [facility] [address] [id number] [place] [address] Jun, [facility] [place] [facility] [address] [id number] [place] [address] Jun, [facility] [place] [facility] [address] [id number] [place] [address] Jun, [facility] [place] [facility] [address] [id number] [place] [address] May, [facility] [place] [facility] [address] [id number] [place] [address] May, [facility] [place] [facility] [address] [id number] [place] [address] May, [facility] [place] [facility] [address] [id number] [place] [address] May, [facility] [place] [facility] [address] [id number] [place] [address] May, [facility] [place] [facility] [address] [id number] [place] [address] May, [facility] [place] [facility] [address] [id number] [place] [address] May, [facility] [place] [facility] [address] [id number] [place] [address] May, [facility] [place] [facility] [address] [id number] [place] [address] May, [facility] [place] [facility] [address] [id number] [place] [address] May, [facility] [place] [facility] [address] [id number] [place] [address] May, [facility] [place] [facility] [address] [id number] [place] [address] May, [facility] [place] [facility] [address] [id number] [place] [address] Apr, [facility] [place] [facility] [address] [id number] [place] [address] Apr, [facility] [place] [facility] [address] [id number] [place] [address] Apr, [facility] [place] [facility] [address] [id number] [place] [address] Apr, [facility] [place] [facility] [address] [id number] [place] [address] Apr, [facility] [place] [facility] [address] [id number] [place] [address] Apr, [facility] [place] [facility] [address] [id number] [place] [address] Apr, [facility] [place] [facility] [address] [id number] [place] [address] Apr, [facility] [place] [facility] [address] [id number] [place] [address] Apr, [facility] [place] [facility] [address] [id number] [place] [address] Apr, [facility] [place] [facility] [address] [id number] [place] [address] March, [facility] [place] [facility] [address] [id number] [place] [address] March, [facility] [place] [facility] [address] [id number] [place] [address] March, [facility] [place] [facility] [address] [id number] [place] [address] March, [facility] [place] [facility] [address] [id number] [place] [address] March, [facility] [place] [facility] [address] [id number] [place] [address] March, [facility] [place] [facility] [address] [id number] [place] [address] Feb, [facility] [place] [facility] [address] [id number] [place] [address] Feb, [facility] [place] [facility] [address] [id number] [place] [address] Feb, [facility] [place] [facility] [address] [id number] [place] [address] Feb, [facility] [place] [facility] [address] [id number] [place] [address] Feb, [facility] [place] [facility] [address] [id number] [place] [address] Feb, [facility] [place] [facility] [address] [id number] [place] [address] Feb, [facility] [place] [facility] [address] [id number] [place] [address] Feb, [facility] [place] [facility] [address] [id number] [place] [address] Feb, [facility] [place] [facility] [address] [id number] [place] [address] Feb, [facility] [place] [facility] [address] [id number] [place] [address] Jan, [facility] [place] [facility] [address] [id number] [place] [address] Jan, [facility] [place] [facility] [address] [id number] [place] [address] Jan, [facility] [place] [facility] [address] [id number] [place] [address] Jan, [facility] [place] [facility] [address] [id number] [place] [address] Jan, [facility] [place] [facility] [address] [id number] [place] [address] Jan, [facility] [place] [facility] [address] [id number] [place] [address] Jan, [facility] [place] [facility] [address] [id number] [place] [address] Jan, [facility] [place] [facility] [address] [id number] [place] [address] Dec, [facility] [place] [facility] [address] [id number] [place] [address] Dec, [facility] [place] [facility] [address] [id number] [place] [address] Dec, [facility] [place] [facility] [address] [id number] [place] [address] Dec, [facility] [place] [facility] [address] [id number] [place] [address] Dec, [facility] [place] [facility] [address] [id number] [place] [address] Dec, [facility] [place] [facility] [address] [id number] [place] [address] Dec, [facility] [place] [facility] [address] [id number] [place] [address] Dec, [facility] [place] [facility] [address] [id number] [place] [address] Nov, [facility] [place] [facility] [address] [id number] [place] [address] Nov, [facility] [place] [facility] [address] [id number] [place] [address] Nov, [facility] [place] [facility] [address] [id number] [place] [address] Nov, [facility] [address] [id number] [place] [address] Nov, [facility] [place] [facility] [address] [id number] [place] [address] Nov, [facility] [address] [id number] [place] [address] Nov, [facility] [place] [facility] [address] [id number] [place] [address] Nov, [facility] [place] [facility] [address] [id number] [place] [address] Nov, [facility] [place] [facility] [address] [id number] [place] [address] Nov, [facility] [place] [facility] [address] [id number] [place] [address] Nov, [facility] [address] [id number] [place] [address] Oct, [facility] [place] [facility] [address] [id number] [place] [address] Oct, [facility] [place] [facility] [address] [id number] [place] [address] Oct, [facility] [place] [facility] [address] [id number] [place] [address] Oct, [facility] [place] [facility] [address] [id number] [place] [address] Sep, [facility] [place] [facility] [address] [id number] [place] [address] Sep, [facility] [place] [facility] [address] [id number] [place] [address] Sep, [facility] [place] [facility] [address] [id number] [place] [address] Sep, [facility] [place] [facility] [address] [id number] [place] [address] Aug, [facility] [place] [facility] [address] [id number] [place] [address] Aug, [facility] [place] [facility] [address] [id number] [place] [address] Aug, [facility] [place] [facility] [address] [id number] [place] [address] Aug, [facility] [place] [facility] [address] [id number] [place] [address] Aug, [facility] [place] [facility] [address] [id number] [place] [address] Aug, [facility] [place] [facility] [address] [id number] [place] [address] Aug, [facility] [place] [facility] [address] [id number], [place] [address] Aug, [facility] [place] [facility] [address] [id number] [place] [address] 28 Jul, 2013 [facility] [place] [facility] [address] [id number], [place] [address] 27 Jul, 2013 [facility] [place] [facility] [address] [id number], [place] [address] 26 Jul, 2012 [facility] [place] [facility] [address] [id number], [place] [address] 24 Jul, 2012 [facility] [place] [facility] [address] [id number] [place] [address] 24 Jul, 2012 [facility] [place] [facility] [address] [id number], [place] [address] 23 Jul, 2012 [facility] [place] [facility] [address] [id number], [place] [address] 19 Jul, 2012 [facility] [place] [facility] [address] [id number] [place] [address] 18 Sep, 2012 [facility] [place] [facility] [address] [id number] [place] [address] 17 Sep, 2012 [facility] [place] [facility] [address] [id number] [place] [address] 16 Jul, 2012 [facility] [place] [facility] [address] [id number] [place] [address] 13 Jul, 2012 [facility] [place] [facility] [address] [id number] [place] [address] 13 Jul, 2012 [facility] [place] [facility] [address] [id number] [place] [address] 12 Jul, 2012 [facility] [place] [facility] [address] [id number] [place] [address] 11 Jul, 2012 [facility] [place] [facility] [address] [id number] [place] [address] 04 Jul, 2012 [facility] [place] [facility] [address] [id number] [place] [address] 30 Jun, 2013 [facility] [place] [facility] [address] [id number] [place] [address] Jun, [facility] [place] [facility] [address] [id number] [place] [address] Jun, [facility] [place] [facility] [address] [id number] [place] [address] May, [facility] [place] [facility] [address] [id number] [place] [address] May, [facility] [place] [facility] [address] [id number] [place] [address] May, [facility] [place] [facility] [address] [id number] [place] [address] May, [facility] [place] [facility] [address] [id number] [place] [address] Apr, [facility] [place] [facility] [address] [id number] [place] [address] Apr, [facility] [address] [id number] [place] [address] Apr, [facility] [address] [id number] [place] [address] Apr, [facility] [address] [id number] [place] [address] March, [facility] [address] [id number] [place] [address] March, [facility] [address] [id number] [place] [address] March, [facility] [address] [id number] [place] [address] Feb, [facility] [address] [id number] [place] [address] Feb, [facility] [address] [id number] [place] [address] Jan, [facility] [address] [id number] [place] [address] Jan, [facility] [address] [id number] [place] [address] Jan, [facility] [address] [id number] [place] [address] Jan, [facility] [address] [id number] [place] [address] Jan, [facility] [place] [facility] [address] [id number] [place] [address] Dec, [facility] [place] [facility] [address] [id number] [place] [address] Dec, [facility] [address] [id number] [place] [address] Dec, [facility] [address] [id number] [place] [address] Dec, [facility] [address] [id number] [place] [address] 18 Dec, 2012 [facility] [address] [id number] [place] [address] Dec, [facility] [address] [id number] [place] [address] Dec, [facility] [address] [id number] [place] [address] Dec, [facility] [address] [id number] [place] [address] Nov, [facility] [address] [id number] [place] [address] Nov, [facility] [address] [id number] [place] [address] Nov, [facility] [address] [id number] [place] [address] Nov, [facility] [address] [id number] [place] [address] Nov, [facility] [address] [id number] [place] [address] Nov, [facility] [address] [id number] [place] [address] Nov, [facility] [address] [id number] [place] [address] Oct, [facility] [place] [facility] [address] [id number] [place] [address] Oct, [facility] [address] [id number] [place] [address] Oct, [facility] [place] [facility] [address] [id number] [place] [address] Oct, [facility] [place] [facility] [address] [id number] [place] [address] Oct, [facility] [place] [facility] [address] [id number] [place] [address] Oct, [facility] [place] [facility] [address] [id number] [place] [address] Oct, [facility] [place] [facility] [address] [id number] [place] [address] Oct, [facility] [place] [facility] [address] [id number] [place] [address] Sep, [facility] [place] [facility] [address] [id number] [place] [address] Sep, [facility] [place] [facility] [address] [id number] [place] [address] Sep, [facility] [place] [facility] [address] [id number] [place] [address] Sep, [facility] [place] [facility] [address] [id number] [place] [address] Sep, [facility] [place] [facility] [address] [id number] [place] [address] Sep, [facility] [place] [facility] [address] [id number] [place] [address] Sep, [facility] [place] [facility] [address] [id number] [place] [address] Sep, [facility] [place] [facility] [address] [id number] [place] [address] Sep, [facility] [place] [facility] [address] [id number] [place] [address] Sep, [facility] [place] [facility] [address] [id number] [place] [address] Sep, [facility] [place] [facility] [address] [id number] [place] [address] Sep, [facility] [place] [facility] [address] [id number] [place] [address] Sep, [facility] [place] [facility] [address] [facility] [id number] [place] [address] Sep, [facility] [place] [facility] [address] [id number] [place] [address] Sep, [facility] [place] [facility] [address] [id number] [place] [address] Sep, [facility] [place] [facility] [address] [facility] [id number] [place] [address] Sep, [facility] [place] [facility] [address] [facility] [id number] [place] [address] Sep, [facility] [place] [facility] [address] [id number], [place] [address] Sep, [facility] [place] [facility] [address] [id number], [place] [address] Sep, [facility] [place] [facility] [address] [facility] [id number], [place] [address] Aug, [facility] [place] [facility] [address] [id number], [place] [address] 31 Aug, 2012 [facility] [place] [facility] [address] [id number], [place] [address] 29 Aug, 2012 [facility] [place] [facility] [address] [id number], [place] [address] Aug, [facility] [place] [facility] [address] [facility] [id number], [place] [address] Aug, [facility] [place] [facility] [address] [facility] [id number], [place] [address] 18 Aug, 2012 [facility] [place] [facility] [address] [id number] [place] [address] 18 Aug, 2012 [facility] [place] [facility] [address] [id number] [place] [address] 17 Aug, 2012 [facility] [place] [facility] [address] [id number] [place] [address] 16 Aug, 2012 [facility] [place] [facility] [address] [id number] [place] [address] 16 Aug, 2012 [facility] [place] [facility] [address] [id number] [place] [address] 15 Aug, 2012 [facility] [place] [facility] [address] [id number] [place] [address] 09 Aug, 2012 [facility] [place] [facility] [address] [id number] [place] [address] 05 Aug, 2012 [facility] [place] [facility] [address] [id number] [place] [address] 05 Aug, 2012 [facility] [place] [facility] [address] [id number] [place] [address] 04 Aug, 2012 [facility] [place] [facility] [address] [id number] [place] [address] 14 Jul, 2012 [facility] [place] [facility] [address] [id number] [place] [address] 10 Jul, 2012 [facility] [place] [facility] [address] [id number] [place] [address] Jun, [facility] [place] [facility] [address] [id number] [place] [address] Jun, [facility] [place] [facility] [address] [id number] [place] [address] 31 May, 2012 [facility] [place] [facility] [address] [id number] [place] [address] May, [facility] [place] [facility] [address] [id number] [place] [address] May, [facility] [place] [facility] [address] [id number] [place] [address] May, [facility] [place] [facility] [address] [id number] [place] [address] May, [facility] [place] [facility] [address] [id number] [place] [address] May, [facility] [place] [facility] [address] [id number] [place] [address] Apr, [facility] [address] [id number] [place] [address] Apr, [facility] [place] [facility] [address] [id number] [place] [address] March, [facility] [address] [id number] [place] [address] March, [facility] [address] [id number] [place] [address] March, [facility] [place] [facility] [address] [id number] [place] [address] March, [facility] [place] [facility] [address] [id number] [place] [address] March, [facility] [place] [facility] [address] [id number] [place] [address] March, [facility] [place] [facility] [address] [id number] [place] [address] Feb, [facility] [place] [facility] [address] [id number] [place] [address] Feb, [facility] [place] [facility] [address] [id number] [place] [address] Feb, [facility] [place] [facility] [address] [id number] [place] [address] Feb, [facility] [place] [facility] [address] [id number] [place] [address] 23 Feb, 2012 [facility] [address] [id number] [place] [address] 19 Feb, 2012 [facility] [place] [facility] [address] [id number] [place] [address] 10 Feb, 2012 [facility] [place] [facility] [address] [id number] [place] [address] Feb, [facility] [place] [facility] [address] [id number] [place] [address] 04 Feb, 2012 [facility] [place] [facility] [address] [id number] [place] [address] 30 Jan, 2012 [facility] [place] [facility] [address] [id number] [place] [address] 27 Jan, 2012 [facility] [place] [facility] [address] [id number] [place] [address] Jan, [facility] [place] [facility] [address] [id number] [place] [address] 22 Jan, 2012 [facility] [place] [facility] [address] [id number] [place] [address] Jan, [facility] [place] [facility] [address] [id number] [place] [address] 20 Jan, 2012 [facility] [place] [facility] [address] [id number] [place] [address] 14 Jan, 2012 [facility] [place] [facility] [address] [id number] [place] [address] Jan, [facility] [place] [facility] [address] [id number] [place] [address] Jan, [facility] [place] [facility] [address] [id number] [place] [address] 08 Jan, 2012 [facility] [place] [facility] [address] [id number] [place] [address] 07 Jan, 2012 [facility] [place] [facility] [address] [id number] [place] [address] Jan, [facility] [place] [facility] [address] [id number] [place] [address] Jan, [facility] [place] [facility] [address] [id number] [place] [address] Jan, [facility] [place] [facility] [address] [id number] [place] [address] Dec, [facility] [place] [facility] [address] [id number] [place] [address] Dec, [facility] [place] [facility] [address] [id number] [place] [address] Dec, [facility] [place] [facility] [address] [id number] [place] [address] Dec, [facility] [place] [facility] [address] [id number] [place] [address] 16 Dec, 2011 [facility] [place] [facility] [address] [id number] [place] [address] Dec, [facility] [place] [facility] [address] [facility] [id number] [place] [address] 08 Dec, 2011 [facility] [place] [facility] [address] [facility] [id number] [place] [address] Dec, [facility] [place] [facility] [address] [id number], [place] [address] Dec, [facility] [place] [facility] [address] [id number] [place] [address] Nov, [facility] [place] [facility] [address] [id number] [place] [address] Nov, [facility] [place] [facility] [address] [facility] [id number], [place] [address] Nov, [facility] [place] [facility] [address] [id number], [place] [address] Nov, [facility] [address] [id number] [place] [address] Oct, [facility] [place] [facility] [address] [id number] [place] [address] Oct, [facility] [place] [facility] [address] [id number] [place] [address] Oct, [facility] [place] [facility] [address] [id number] [place] [address] Oct, [facility] [place] [facility] [address] [id number] [place] [address] Oct, [facility] [place] [facility] [address] [id number] [place] [address] Oct, [facility] [place] [facility] [address] [facility] [id number] [place] [address] Oct, [facility] [place] [facility] [address] [id number] [place] [address] Sep, [facility] [place] [facility] [address] [facility] [id number] [place] [address] Sep, [facility] [place] [facility] [address] [facility] [id number] [place] [address] Sep, [facility] [place] [facility] [address] [id number], [place] [address] Sep, [facility] [place] [facility] [address] [id number], [place] [address] Sep, [facility] [place] [facility] [address] [id number] [place] [address] Sep, [facility] [place] [facility] [address] [facility] [id number] [place] [address] Sep, [facility] [place] [facility] [address] [facility] [id number] [place] [address] Sep, [facility] [place] [facility] [address] [id number] [place] [address] Sep, [facility] [place] [facility] [address] [id number] [place] [address] 30 Aug, 2011 [facility] [place] [facility] [address] [id number] [place] [address] Aug, [facility] [place] [facility] [address] [id number] [place] [address] Aug, [facility] [place] [facility] [address] [id number] [place] [address] May, [facility] [place] [facility] [address] [id number] [place] [address] Nov, [facility] [place] [facility] [address] [id number] [place] [address] 31 Oct, 2010 [facility] [place] [facility] [address] [id number] [place] [address] 30 Oct, 2010 [facility] [place] [facility] [address] [id number] [place] [address] Oct, [facility] [place] [facility] [address] [id number] [place] [address] Oct, [facility] [place] [facility] [address] [facility] [id number] [place] [address] Oct, [facility] [place] [facility] [address] [id number] [place] [address] Sep, [facility] [place] [facility] [address] [id number] [place] [address] Sep, [facility] [place] [facility] [address] [id number] [place] [address] 14 Jul, 2010 [facility] [place] [facility] [address] [id number] [place] [address] 31 Oct, 2009 [facility] [place] [facility] [address] [id number] [place] [address] Oct, [facility] [address] [facility] [id number], [place] [address] Oct, [facility] [address] [facility] [id number], [place] [address] Oct, [facility] [address] [facility] [id number], [place] [address] Sep, [facility] [address] [facility] [id number], [place] [address] Sep, [facility] [address] [facility] [id number], [place] [address] Sep, [facility] [address] [facility] [id number], [place] [address] Sep, [facility] [id number], [place] [address] Sep, [facility] [address] [id number], [place] [address] Jul, [facility] [address] [id number], [place] [address] Apr, [facility] [address] [id number], [place] [address] 12 Dec, 2008 IMMUNIZATIONS No Known Immunizations SOCIAL HISTORY Never Assessed REASON FOR VISIT [facility]MR-[facility] PLAN OF CARE VITAL SIGNS MEDICATIONS Unknown [...]
[2019-06-14 11:32] LABS: ALBUMIN 3.3 GM/DL (3.2-4.5); BILIRUBIN,TOTAL 0.4 MG/DL (0.1-1.0); CREATININE SERUM 1.12 MG/DL (0.60-1.30); POTASSIUM 4.2 MMOL/L (3.6-5.0); TOTAL PROTEIN 6.8 GM/DL (6.4-8.2)
--- OUTSIDE RECORDS SUMMARY | 2019-06-14 11:32 | XMS REPORT ---
Author Author Migration, Doctor Organization [facility] Address Unknown Phone Unavailable Care Team Providers Care Wealth Management Director Name Role Phone Migration, Doctor Unavailable Unavailable PROBLEMS Type Condition ICD9-CM Code GIB33-OC Code Onset Dates Condition Status SNOMED Code Problem Essential hypertension I10 Active 38707283 Problem Prediabetes R73.03 Active 332966531 Problem Reactive depression F32.9 Active 72912462 Problem Acquired hypothyroidism E03.9 Active 081102780 Problem Gastroesophageal reflux disease, esophagitis presence not specified K21.9 Active 935518416 Problem Mixed hyperlipidemia E78.2 Active 636416101 Problem Other chronic pain G89.29 Active 19298833 Problem Chronic obstructive pulmonary disease, unspecified COPD type J44.9 Active 18923736 Problem Cigarette nicotine dependence without complication F17.210 Active 20488041 Problem Sinusitis J32.9 Active 73332080 Problem Lumbago with sciatica, right side M54.41 Active [id number] Problem Chronic pain G89.29 Active 30404095 Problem Lumbago with sciatica, left side M54.42 Active 792095112 Problem DM neuro manif type II E11.49 Active 09784489 Problem Seizures R56.9 Active 35360232 Problem Iron deficiency anemia due to chronic blood loss D50.0 Active 000981096 Problem Seasonal allergies J30.2 Active 118940856 ALLERGIES No Information ENCOUNTERS Encounter Location Date Diagnosis [facility] [id number] [address] Feb, [facility] [id number] [place] [address] Jan, [facility] [id number] [place] [address] Jan, Acute cystitis with hematuria N30.01 and Dysuria R30.0 [facility] [id number] [place] [address] Jan, [facility] [id number] [address] Dec, [facility] [address] [address] Dec, [facility] [address] [address] Dec, [facility] [id number] [place] [address] Dec, [facility] [id number] [place] [address] Dec, Routine adult health maintenance Z00.00 ; Chronic obstructive pulmonary disease, unspecified COPD type J44.9 and Encounter for immunization Z23 [facility] [id number] [address] Nov, [facility] [id number] [address] Nov, UTI (urinary tract infection) N39.0 and Other chronic pain G89.29 [facility] [address] [address] Nov, [facility] [id number] [address] Nov, [facility] [id number] [address] Nov, Painful urination R30.9 and UTI (urinary tract infection) N39.0 [facility] [address] [address] Nov, [facility] [id number] [address] Nov, UTI (urinary tract infection) N39.0 [facility] [address] [address] Nov, Dysuria R30.0 ; UTI (urinary tract infection) N39.0 and Chronic pain G89.29 [place] [facility] [id number] [place] [address] Nov, [place] [id number] [place] [address] Oct, Cough R05 [place] [address] [address] Oct, Sinusitis J32.9 [place] [facility] [id number] [place] [address] Oct, [place] [id number] [place] [address] Oct, UTI (urinary tract infection) N39.0 and URI (upper respiratory infection) J06.9 [facility] [facility] [id number] [place] [address] Sep, Pain in thoracic spine M54.6 [facility] [id number] [place] [address] Sep, Type 2 diabetes mellitus with hyperglycemia E11.65 [facility] [id number] [place] [address] Sep, Chronic obstructive pulmonary disease, unspecified COPD type J44.9 ; Abrasion of right ear canal, initial encounter S00.411A ; Cigarette nicotine dependence without complication F17.210 ; Right leg pain M79.604 and Seasonal allergies J30.2 [place] [id number] [place] [address] Aug, [place] [id number] [place] [address] Aug, [place] [id number] [place] [address] Aug, Pain in thoracic spine M54.6 [place] [address] [address] Aug, [place] [address] [address] Aug, Chronic obstructive pulmonary disease, unspecified COPD type J44.9 ; Complete amputation of right foot, 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 ; Cigarette nicotine dependence without complication F17.210 and BMI 40.0-44.9, adult Z68.41 [place] [address] [address] Jul, [place] [address] [address] Jul, [place] [address] [address] Jul, Onychomycosis B35.1 ; Onychocryptosis L60.0 and DM neuro manif type II E11.49 [place] [address] [address] Jun, Pain in thoracic spine M54.[address] [address] Jun, Iron deficiency anemia due to chronic blood loss D50.0 and Hematochezia K92.[address] [address] Jun, Gastroenteritis K52.9 and Abnormal RBC indices R71.8 [place] [address] [address] Jun, [place] [address] [address] Jun, Chest congestion R09.89 and Seizures R56.[address] [address] May, Pain in thoracic spine M54.[address] [place] [address] May, [facility] [id number] [place] [address] May, [facility] [id number] [place] [address] May, [facility] [id number] [place] [address] May, Acute non-recurrent frontal sinusitis J01.10 and Dermatitis L30.9 [facility] [id number] [place] [address] May, [facility] [id number] [place] [address] May, Pain in thoracic spine M54.6 [facility] [id number] [place] [address] May, [facility] [id number] [place] [address] May, Acute nasopharyngitis J00 [facility] [id number] [place] [address] May, [facility] [id number] [place] [address] May, [facility] [id number] [place] [address] Apr, [facility] [id number] [place] [address] Apr, [facility] [id number] [place] [address] Apr, [facility] [id number] [place] [address] Apr, [facility] [address] [place] [address] Apr, Pain in right ankle and joints of right foot M25.571 [place] [id number] [place] [address] Apr, [place] [id number] [place] [address] Apr, Bronchitis J40 ; Pain in right ankle and joints of right foot M25.571 ; Other chronic pain G89.29 ; Prediabetes R73.03 ; Chronic obstructive pulmonary disease, unspecified COPD type J44.9 and Cigarette nicotine dependence without complication F17.210 [facility] [id number] [place] [address] 13 Apr, 2018 Seasonal allergic rhinitis, unspecified trigger J30.2 [place] [id number] [place] [address] 08 Apr, 2018 Onychomycosis B35.1 ; Onychocryptosis L60.0 and DM neuro manif type II E11.49 [place] [id number] [place] [address] Apr, Reactive depression F32.9 ; Thoracic myofascial strain, initial encounter S29.019A and Leg cramps R25.2 [place] [id number] [place] [address] March, [place] [id number] [place] [address] March, Type 2 diabetes mellitus with hyperglycemia E11.65 [place] [id number] [place] [address] March, Reactive depression F32.9 [id number] [place] [address] March, Pain in thoracic spine M54.6 and Other chronic pain G89.29 [place] [id number] [place] [address] Feb, [place] [address] [address] Jan, Reactive depression F32.9 ; Essential hypertension I10 ; Gastroesophageal reflux disease, esophagitis presence not specified K21.9 ; Lumbago with sciatica, left side M54.42 and Lumbago with sciatica, right side M54.41 [place] [address] [address] Jan, Reactive depression F32.9 and Pharyngoesophageal dysphagia R13.14 [place] [address] [address] Jan, [address] [address] Jan, Encounter for immunization Z23 [address] [address] Jan, Onychomycosis B35.1 and DM neuro manif type II E11.49 [place] [address] [address] Jan, [place] [address] [address] Jan, Prediabetes R73.[address] [address] Dec, [place] [address] [address] Dec, Essential hypertension I10 ; Mixed hyperlipidemia E78.2 ; Acquired hypothyroidism E03.9 ; Reactive depression F32.9 and Prediabetes R73.03 [place] [address] [address] Dec, [place] [address] [address] Dec, [place] [id number] Dec, DM neuro manif type II E11.49 [facility] [address] [address] Dec, Bruise T14.8XXA ; Type 2 diabetes mellitus with hyperglycemia E11.65 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 [facility] [id number] [place] [address] Oct, [facility] [id number] [place] [address] March, Onychomycosis B35.1 and DM neuro manif type II E11.49 [facility] [id number] [place] [address] Jun, [facility] [id number] [place] [address] Jun, [facility] [id number] [place] [address] Jun, COPD with acute exacerbation 491.21 [facility] [id number] [place] [address] Apr, [facility] [id number] [place] [address] Feb, [facility] [address] [address] Feb, [facility] [id number] [place] [address] Jan, [facility] [id number] [place] [address] Jan, [facility] [id number] [place] [address] Jan, [facility] [address] [address] Jan, [facility] [address] [facility] [id number] [place] [address] 24 Jan, 2014 [facility] [place] [facility] [address] [id number] [place] [address] 23 Jan, 2014 [facility] [place] [facility] [address] [id number] [place] [address] 23 Jan, 2014 [facility] [place] [facility] [address] [id number] [place] [address] 23 Jan, 2014 [facility] [place] [facility] [address] [id number] [place] [address] 23 Jan, 2014 [facility] [place] [facility] [address] [id number] [place] [address] 19 Jan, 2014 [facility] [place] [facility] [address] [id number] [place] [address] 19 Jan, 2014 [facility] [place] [facility] [address] [id number] [place] [address] 18 Jan, 2014 [facility] [place] [facility] [address] [id number] [place] [address] 18 Jan, 2015 [facility] [place] [facility] [address] [id number] [place] [address] 16 Jan, 2014 [facility] [place] [facility] [address] [id number] [place] [address] 16 Jan, 2014 [facility] [place] [facility] [address] [id number] [place] [address] 16 Jan, 2014 [facility] [place] [facility] [address] [id number] [place] [address] 16 Jan, 2014 [facility] [place] [facility] [address] [id number] [place] [address] 15 Jan, 2014 [facility] [place] [facility] [address] [id number] [place] [address] 13 Jan, 2014 [facility] [place] [facility] [address] [id number] [place] [address] 13 Jan, 2015 [facility] [place] [facility] [address] [id number] [place] [address] 13 Jan, 2015 [facility] [place] [facility] [address] [id number] [place] [address] Jan, [facility] [place] [facility] [address] [facility] [id number] [place] [address] Jan, [facility] [place] [facility] [address] [id number] [place] [address] Jan, [facility] [place] [facility] [address] [id number] [place] [address] Jan, [facility] [place] [facility] [address] [id number] [place] [address] 24 Dec, 2014 [facility] [place] [facility] [address] [facility] [id number] [place] [address] Dec, [facility] [place] [facility] [address] [facility] [id number] [place] [address] Dec, [facility] [place] [facility] [address] [facility] [id number] [place] [address] Dec, [facility] [place] [facility] [address] [facility] [id number] [place] [address] Dec, 2014 [facility] [place] [facility] [address] [facility] [id number] [place] [address] Dec, 2014 [facility] [place] [facility] [address] [facility] [id number] [place] [address] Dec, 2014 [facility] [place] [facility] [address] [facility] [id number] [place] [address] Dec, 2014 [facility] [place] [facility] [address] [facility] [id number] [place] [address] Dec, 2014 [facility] [place] [facility] [address] [facility] [id number] [place] [address] Dec, 2014 [facility] [place] [facility] [address] [id number] [place] [address] Dec, [facility] [place] [facility] [address] [id number] [place] [address] Dec, [facility] [place] [facility] [address] [id number] [place] [address] Nov, [facility] [place] [facility] [address] [id number] [place] [address] Nov, [facility] [place] [facility] [address] [id number] [place] [address] Nov, [facility] [place] [facility] [address] [id number] [place] [address] Nov, [facility] [place] [facility] [address] [id number] [place] [address] Nov, [facility] [place] [facility] [address] [id number] [place] [address] Nov, [facility] [place] [facility] [address] [id number] [place] [address] Nov, [facility] [place] [facility] [address] [id number] [place] [address] Nov, [facility] [place] [facility] [address] [id number] [place] [address] Nov, [facility] [place] [facility] [address] [id number] [place] [address] Nov, [facility] [place] [facility] [address] [id number] [place] [address] Nov, [facility] [place] [facility] [address] [id number] [place] [address] Nov, [facility] [place] [facility] [address] [id number] [place] [address] Oct, [facility] [place] [facility] [address] [id number] [place] [address] 31 Oct, 2014 [facility] [place] [facility] [address] [id number] [place] [address] 30 Oct, 2014 [facility] [place] [facility] [address] [id number] [place] [address] 30 Oct, 2014 [facility] [place] [facility] [address] [id number] [place] [address] 29 Oct, 2014 [facility] [place] [facility] [address] [id number] [place] [address] 29 Oct, 2014 [facility] [place] [facility] [address] [id number] [place] [address] Oct, [facility] [place] [facility] [address] [id number] [place] [address] Oct, [facility] [place] [facility] [address] [id number] [place] [address] 17 Oct, 2014 [facility] [place] [facility] [address] [id number] [place] [address] 17 Oct, 2014 [facility] [place] [facility] [address] [id number] [place] [address] 16 Oct, 2014 [facility] [place] [facility] [address] [id number] [place] [address] 16 Oct, 2014 [facility] [place] [facility] [address] [id number] [place] [address] 15 Oct, 2014 [facility] [place] [facility] [address] [id number] [place] [address] 15 Oct, 2014 [facility] [place] [facility] [address] [id number] [place] [address] 08 Oct, 2014 [facility] [place] [facility] [address] [id number] [place] [address] 24 Sep, 2014 [facility] [place] [facility] [address] [id number] [place] [address] Sep, [facility] [place] [facility] [address] [id number] [place] [address] Sep, [facility] [place] [facility] [address] [id number] [place] [address] Sep, [facility] [place] [facility] [address] [id number] [place] [address] Aug, [facility] [place] [facility] [address] [id number] [place] [address] Aug, [facility] [place] [facility] [address] [id number] [place] [address] Aug, [facility] [place] [facility] [address] [id number] [place] [address] Aug, [facility] [place] [facility] [address] [id number] [place] [address] Aug, [facility] [place] [facility] [address] [id number] [place] [address] Aug, [facility] [place] [facility] [address] [id number] [place] [address] 29 Jul, 2014 [facility] [place] [facility] [address] [id number] [place] [address] 29 Jul, 2014 [facility] [place] [facility] [address] [id number] [place] [address] 15 Jul, 2014 [facility] [place] [facility] [address] [id number] [place] [address] 15 Jul, 2014 [facility] [place] [facility] [address] [id number] [place] [address] 08 Jul, 2014 [facility] [place] [facility] [address] [id number] [place] [address] 08 Jul, 2014 [facility] [place] [facility] [address] [id number] [place] [address] Jun, [facility] [place] [facility] [address] [id number] [place] [address] Jun, [facility] [place] [facility] [address] [id number] [place] [address] Jun, [facility] [place] [facility] [address] [id number] [place] [address] Jun, [facility] [place] [facility] [address] [id number] [place] [address] Jun, [facility] [place] [facility] [address] [id number] [place] [address] Jun, [facility] [place] [facility] [address] [id number] [place] [address] Jun, [facility] [place] [facility] [address] [id number] [place] [address] May, [facility] [place] [facility] [address] [id number] [place] [address] May, [facility] [place] [facility] [address] [id number] [place] [address] May, [facility] [place] [facility] [address] [id number] [place] [address] May, [facility] [place] [facility] [address] [id number] [place] [address] May, [facility] [place] [facility] [address] [id number] [place] [address] May, [facility] [place] [facility] [address] [id number] [place] [address] May, [facility] [place] [facility] [address] [id number] [place] [address] May, [facility] [place] [facility] [address] [id number] [place] [address] May, [facility] [place] [facility] [address] [id number] [place] [address] May, [facility] [place] [facility] [address] [id number] [place] [address] May, [facility] [place] [facility] [address] [id number] [place] [address] May, [facility] [place] [facility] [address] [id number] [place] [address] Apr, [facility] [place] [facility] [address] [id number] [place] [address] Apr, [facility] [place] [facility] [address] [id number] [place] [address] Apr, [facility] [place] [facility] [address] [id number] [place] [address] Apr, [facility] [place] [facility] [address] [id number] [place] [address] Apr, [facility] [place] [facility] [address] [id number] [place] [address] Apr, [facility] [place] [facility] [address] [id number] [place] [address] Apr, [facility] [place] [facility] [address] [id number] [place] [address] Apr, [facility] [place] [facility] [address] [id number] [place] [address] Apr, [facility] [place] [facility] [address] [id number] [place] [address] Apr, [facility] [place] [facility] [address] [id number] [place] [address] March, [facility] [place] [facility] [address] [id number] [place] [address] March, [facility] [place] [facility] [address] [id number] [place] [address] March, [facility] [place] [facility] [address] [id number] [place] [address] March, [facility] [place] [facility] [address] [id number] [place] [address] March, [facility] [place] [facility] [address] [id number] [place] [address] March, [facility] [place] [facility] [address] [id number] [place] [address] Feb, [facility] [place] [facility] [address] [id number] [place] [address] Feb, [facility] [place] [facility] [address] [id number] [place] [address] Feb, [facility] [place] [facility] [address] [id number] [place] [address] Feb, [facility] [place] [facility] [address] [id number] [place] [address] Feb, [facility] [place] [facility] [address] [id number] [place] [address] Feb, [facility] [place] [facility] [address] [id number] [place] [address] Feb, [facility] [place] [facility] [address] [id number] [place] [address] Feb, [facility] [place] [facility] [address] [id number] [place] [address] Feb, [facility] [place] [facility] [address] [id number] [place] [address] Feb, [facility] [place] [facility] [address] [id number] [place] [address] Jan, [facility] [place] [facility] [address] [id number] [place] [address] Jan, [facility] [place] [facility] [address] [id number] [place] [address] Jan, [facility] [place] [facility] [address] [id number] [place] [address] Jan, [facility] [place] [facility] [address] [id number] [place] [address] Jan, [facility] [place] [facility] [address] [id number] [place] [address] Jan, [facility] [place] [facility] [address] [id number] [place] [address] Jan, [facility] [place] [facility] [address] [id number] [place] [address] Jan, [facility] [place] [facility] [address] [id number] [place] [address] Dec, [facility] [place] [facility] [address] [id number] [place] [address] Dec, [facility] [place] [facility] [address] [id number] [place] [address] Dec, [facility] [place] [facility] [address] [id number] [place] [address] Dec, [facility] [place] [facility] [address] [id number] [place] [address] Dec, [facility] [place] [facility] [address] [id number] [place] [address] Dec, [facility] [place] [facility] [address] [id number] [place] [address] Dec, [facility] [place] [facility] [address] [id number] [place] [address] Dec, [facility] [place] [facility] [address] [id number] [place] [address] Nov, [facility] [place] [facility] [address] [id number] [place] [address] Nov, [facility] [place] [facility] [address] [id number] [place] [address] Nov, [facility] [place] [facility] [address] [id number] [place] [address] Nov, [facility] [address] [id number] [place] [address] Nov, [facility] [place] [facility] [address] [id number] [place] [address] Nov, [facility] [address] [id number] [place] [address] Nov, [facility] [place] [facility] [address] [id number] [place] [address] Nov, [facility] [place] [facility] [address] [id number] [place] [address] Nov, [facility] [place] [facility] [address] [id number] [place] [address] Nov, [facility] [place] [facility] [address] [id number] [place] [address] Nov, [facility] [address] [id number] [place] [address] Oct, [facility] [place] [facility] [address] [id number] [place] [address] Oct, [facility] [place] [facility] [address] [id number] [place] [address] Oct, [facility] [place] [facility] [address] [id number] [place] [address] Oct, [facility] [place] [facility] [address] [id number] [place] [address] Sep, [facility] [place] [facility] [address] [id number] [place] [address] Sep, [facility] [place] [facility] [address] [id number] [place] [address] Sep, [facility] [place] [facility] [address] [id number] [place] [address] Sep, [facility] [place] [facility] [address] [id number] [place] [address] Aug, [facility] [place] [facility] [address] [id number] [place] [address] Aug, [facility] [place] [facility] [address] [id number] [place] [address] Aug, [facility] [place] [facility] [address] [id number] [place] [address] Aug, [facility] [place] [facility] [address] [id number] [place] [address] Aug, [facility] [place] [facility] [address] [id number] [place] [address] Aug, [facility] [place] [facility] [address] [id number] [place] [address] Aug, [facility] [place] [facility] [address] [id number] [address] Aug, [facility] [place] [facility] [address] [id number] [place] [address] 28 Jul, 2013 [facility] [place] [facility] [address] [id number] [address] 27 Jul, 2013 [facility] [place] [facility] [address] [id number] [place] [address] 26 Jul, 2012 [facility] [place] [facility] [address] [id number] [place] [address] 24 Jul, 2012 [facility] [place] [facility] [address] [id number] [place] [address] 24 Jul, 2012 [facility] [place] [facility] [address] [id number] [place] [address] 23 Jul, 2012 [facility] [place] [facility] [address] [id number] [place] [address] 19 Jul, 2012 [facility] [place] [facility] [address] [id number] [place] [address] 18 Sep, 2012 [facility] [place] [facility] [address] [id number] [place] [address] 17 Sep, 2012 [facility] [place] [facility] [address] [id number] [place] [address] 16 Jul, 2012 [facility] [place] [facility] [address] [id number] [place] [address] 13 Jul, 2012 [facility] [place] [facility] [address] [id number] [place] [address] 13 Jul, 2012 [facility] [place] [facility] [address] [id number] [place] [address] 12 Jul, 2012 [facility] [place] [facility] [address] [id number] [place] [address] 11 Jul, 2012 [facility] [place] [facility] [address] [id number] [place] [address] 04 Jul, 2012 [facility] [place] [facility] [address] [id number] [place] [address] 30 Jun, 2013 [facility] [place] [facility] [address] [id number] [place] [address] Jun, [facility] [place] [facility] [address] [id number] [place] [address] Jun, [facility] [place] [facility] [address] [id number] [place] [address] May, [facility] [place] [facility] [address] [id number] [place] [address] May, [facility] [place] [facility] [address] [id number] [place] [address] May, [facility] [place] [facility] [address] [id number] [place] [address] May, [facility] [place] [facility] [address] [id number] [place] [address] Apr, [facility] [place] [facility] [address] [id number] [place] [address] Apr, [facility] [address] [id number] [place] [address] Apr, [facility] [address] [id number] [place] [address] Apr, [facility] [address] [id number] [place] [address] March, [facility] [address] [id number] [place] [address] March, [facility] [address] [id number] [place] [address] March, [facility] [address] [id number] [place] [address] Feb, [facility] [address] [id number] [place] [address] Feb, [facility] [address] [id number] [place] [address] Jan, [facility] [address] [id number] [place] [address] Jan, [facility] [address] [id number] [place] [address] Jan, [facility] [address] [id number] [place] [address] Jan, [facility] [address] [id number] [place] [address] Jan, [facility] [place] [facility] [address] [id number] [place] [address] Dec, [facility] [place] [facility] [address] [id number] [place] [address] Dec, [facility] [address] [id number] [place] [address] Dec, [facility] [address] [id number] [place] [address] Dec, [facility] [address] [id number] [place] [address] 18 Dec, 2012 [facility] [address] [id number] [place] [address] Dec, [facility] [address] [id number] [place] [address] Dec, [facility] [address] [id number] [place] [address] Dec, [facility] [address] [id number] [place] [address] Nov, [facility] [address] [id number] [place] [address] Nov, [facility] [address] [id number] [place] [address] Nov, [facility] [address] [id number] [place] [address] Nov, [facility] [address] [id number] [place] [address] Nov, [facility] [address] [id number] [place] [address] Nov, [facility] [address] [id number] [place] [address] Nov, [facility] [address] [id number] [place] [address] Oct, [facility] [place] [facility] [address] [id number] [place] [address] Oct, [facility] [address] [id number] [place] [address] Oct, [facility] [place] [facility] [address] [id number] [place] [address] Oct, [facility] [place] [facility] [address] [id number] [place] [address] Oct, [facility] [place] [facility] [address] [id number] [place] [address] Oct, [facility] [place] [facility] [address] [id number] [place] [address] Oct, [facility] [place] [facility] [address] [id number] [place] [address] Oct, [facility] [place] [facility] [address] [id number] [place] [address] Sep, [facility] [place] [facility] [address] [id number] [place] [address] Sep, [facility] [place] [facility] [address] [id number] [place] [address] Sep, [facility] [place] [facility] [address] [id number] [place] [address] Sep, [facility] [place] [facility] [address] [id number] [place] [address] Sep, [facility] [place] [facility] [address] [id number] [place] [address] Sep, [facility] [place] [facility] [address] [id number] [place] [address] Sep, [facility] [place] [facility] [address] [id number] [place] [address] Sep, [facility] [place] [facility] [address] [id number] [place] [address] Sep, [facility] [place] [facility] [address] [id number] [place] [address] Sep, [facility] [place] [facility] [address] [id number] [place] [address] Sep, [facility] [place] [facility] [address] [id number] [place] [address] Sep, [facility] [place] [facility] [address] [id number] [place] [address] Sep, [facility] [place] [facility] [address] [facility] [id number] [place] [address] Sep, [facility] [place] [facility] [address] [id number] [place] [address] Sep, [facility] [place] [facility] [address] [id number] [place] [address] Sep, [facility] [place] [facility] [address] [facility] [id number] [place] [address] Sep, [facility] [place] [facility] [address] [facility] [id number] [place] [address] Sep, [facility] [place] [facility] [address] [id number] [address] Sep, [facility] [place] [facility] [address] [id number] [place] [address] Sep, [facility] [place] [facility] [address] [facility] [id number] [place] [address] Aug, [facility] [place] [facility] [address] [id number] [place] [address] 31 Aug, 2012 [facility] [place] [facility] [address] [id number] [place] [address] 29 Aug, 2012 [facility] [place] [facility] [address] [id number] [place] [address] Aug, [facility] [place] [facility] [address] [facility] [id number] [place] [address] Aug, [facility] [place] [facility] [address] [facility] [id number] [place] [address] 18 Aug, 2012 [facility] [place] [facility] [address] [id number] [place] [address] 18 Aug, 2012 [facility] [place] [facility] [address] [id number] [place] [address] 17 Aug, 2012 [facility] [place] [facility] [address] [id number] [place] [address] 16 Aug, 2012 [facility] [place] [facility] [address] [id number] [place] [address] 16 Aug, 2012 [facility] [place] [facility] [address] [id number] [place] [address] 15 Aug, 2012 [facility] [place] [facility] [address] [id number] [place] [address] 09 Aug, 2012 [facility] [place] [facility] [address] [id number] [place] [address] 05 Aug, 2012 [facility] [place] [facility] [address] [id number] [place] [address] 05 Aug, 2012 [facility] [place] [facility] [address] [id number] [place] [address] 04 Aug, 2012 [facility] [place] [facility] [address] [id number] [place] [address] 14 Jul, 2012 [facility] [place] [facility] [address] [id number] [place] [address] 10 Jul, 2012 [facility] [place] [facility] [address] [id number] [place] [address] Jun, [facility] [place] [facility] [address] [id number] [place] [address] Jun, [facility] [place] [facility] [address] [id number] [place] [address] 31 May, 2012 [facility] [place] [facility] [address] [id number] [place] [address] May, [facility] [place] [facility] [address] [id number] [place] [address] May, [facility] [place] [facility] [address] [id number] [place] [address] May, [facility] [place] [facility] [address] [id number] [place] [address] May, [facility] [place] [facility] [address] [id number] [place] [address] May, [facility] [place] [facility] [address] [id number] [place] [address] Apr, [facility] [address] [id number] [place] [address] Apr, [facility] [place] [facility] [address] [id number] [place] [address] March, [facility] [address] [id number] [place] [address] March, [facility] [address] [id number] [place] [address] March, [facility] [place] [facility] [address] [id number] [place] [address] March, [facility] [place] [facility] [address] [id number] [place] [address] March, [facility] [place] [facility] [address] [id number] [place] [address] March, [facility] [place] [facility] [address] [id number] [place] [address] Feb, [facility] [place] [facility] [address] [id number] [place] [address] Feb, [facility] [place] [facility] [address] [id number] [place] [address] Feb, [facility] [place] [facility] [address] [id number] [place] [address] Feb, [facility] [place] [facility] [address] [id number] [place] [address] 23 Feb, 2012 [facility] [address] [id number] [place] [address] 19 Feb, 2012 [facility] [place] [facility] [address] [id number] [place] [address] 10 Feb, 2012 [facility] [place] [facility] [address] [id number] [place] [address] Feb, [facility] [place] [facility] [address] [id number] [place] [address] 04 Feb, 2012 [facility] [place] [facility] [address] [id number] [place] [address] 30 Jan, 2012 [facility] [place] [facility] [address] [id number] [place] [address] 27 Jan, 2012 [facility] [place] [facility] [address] [id number] [place] [address] Jan, [facility] [place] [facility] [address] [id number] [place] [address] 22 Jan, 2012 [facility] [place] [facility] [address] [id number] [place] [address] Jan, [facility] [place] [facility] [address] [id number] [place] [address] 20 Jan, 2012 [facility] [place] [facility] [address] [id number] [place] [address] 14 Jan, 2012 [facility] [place] [facility] [address] [id number] [place] [address] Jan, [facility] [place] [facility] [address] [id number] [place] [address] Jan, [facility] [place] [facility] [address] [id number] [place] [address] 08 Jan, 2012 [facility] [place] [facility] [address] [id number] [place] [address] 07 Jan, 2012 [facility] [place] [facility] [address] [id number] [place] [address] Jan, [facility] [place] [facility] [address] [id number] [place] [address] Jan, [facility] [place] [facility] [address] [id number] [place] [address] Jan, [facility] [place] [facility] [address] [id number] [place] [address] Dec, [facility] [place] [facility] [address] [id number] [place] [address] Dec, [facility] [place] [facility] [address] [id number] [place] [address] Dec, [facility] [place] [facility] [address] [id number] [place] [address] Dec, [facility] [place] [facility] [address] [id number] [place] [address] 16 Dec, 2011 [facility] [place] [facility] [address] [id number] [place] [address] Dec, [facility] [place] [facility] [address] [facility] [id number] [place] [address] 08 Dec, 2011 [facility] [place] [facility] [address] [facility] [id number] [place] [address] Dec, [facility] [place] [facility] [address] [id number] [address] Dec, [facility] [place] [facility] [address] [id number] [place] [address] Nov, [facility] [place] [facility] [address] [id number] [place] [address] Nov, [facility] [place] [facility] [address] [facility] [id number] [place] [address] Nov, [facility] [place] [facility] [address] [id number] [address] Nov, [facility] [address] [id number] [place] [address] Oct, [facility] [place] [facility] [address] [id number] [place] [address] Oct, [facility] [place] [facility] [address] [id number] [place] [address] Oct, [facility] [place] [facility] [address] [id number] [place] [address] Oct, [facility] [place] [facility] [address] [id number] [place] [address] Oct, [facility] [place] [facility] [address] [id number] [place] [address] Oct, [facility] [place] [facility] [address] [facility] [id number] [place] [address] Oct, [facility] [place] [facility] [address] [id number] [place] [address] Sep, [facility] [place] [facility] [address] [facility] [id number] [place] [address] Sep, [facility] [place] [facility] [address] [facility] [id number] [place] [address] Sep, [facility] [place] [facility] [address] [id number] [address] Sep, [facility] [place] [facility] [address] [id number] [place] [address] Sep, [facility] [place] [facility] [address] [id number] [place] [address] Sep, [facility] [place] [facility] [address] [facility] [id number] [place] [address] Sep, [facility] [place] [facility] [address] [facility] [id number] [place] [address] Sep, [facility] [place] [facility] [address] [id number] [place] [address] Sep, [facility] [place] [facility] [address] [id number] [place] [address] 30 Aug, 2011 [facility] [place] [facility] [address] [id number] [place] [address] Aug, [facility] [place] [facility] [address] [id number] [place] [address] Aug, [facility] [place] [facility] [address] [id number] [place] [address] May, [facility] [place] [facility] [address] [id number] [place] [address] Nov, [facility] [place] [facility] [address] [id number] [place] [address] 31 Oct, 2010 [facility] [place] [facility] [address] [id number] [place] [address] 30 Oct, 2010 [facility] [place] [facility] [address] [id number] [place] [address] Oct, [facility] [place] [facility] [address] [id number] [place] [address] Oct, [facility] [place] [facility] [address] [facility] [id number] [place] [address] Oct, [facility] [place] [facility] [address] [id number] [place] [address] Sep, [facility] [place] [facility] [address] [id number] [place] [address] Sep, [facility] [place] [facility] [address] [id number] [place] [address] 14 Jul, 2010 [facility] [place] [facility] [address] [id number] [place] [address] 31 Oct, 2009 [facility] [place] [facility] [address] [id number] [place] [address] Oct, [facility] [address] [facility] [id number] [place] [address] Oct, [facility] [address] [facility] [id number] [place] [address] Oct, [facility] [address] [facility] [id number] [place] [address] Sep, [facility] [address] [facility] [id number] [place] [address] Sep, [facility] [address] [facility] [id number] [place] [address] Sep, [facility] [address] [facility] [id number] [place] [address] Sep, [facility] [id number] [address] Sep, [facility] [address] [id number] [address] Jul, [facility] [address] [id number] [place] [address] Apr, [facility] [address] [id number] [address] 12 Dec, 2008 IMMUNIZATIONS No Known Immunizations SOCIAL HISTORY Never Assessed REASON FOR VISIT [place] [place] C[place] VITAL SIGNS MEDICATIONS Unknown [...]
--- OUTSIDE RECORDS SUMMARY | 2019-06-14 11:33 | XMS REPORT ---
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 Name Role Phone Migration, Doctor Unavailable Unavailable PROBLEMS Type Condition ICD9-CM Code DYZ56-UJ Code Onset Dates Condition Status SNOMED Code Problem Essential hypertension I10 Active 02917445 Problem Prediabetes R73.03 Active 824235842 Problem Reactive depression F32.9 Active 96536714 Problem Acquired hypothyroidism E03.9 Active 121109793 Problem Gastroesophageal reflux disease, esophagitis presence not specified K21.9 Active 944263296 Problem Mixed hyperlipidemia E78.2 Active 256785709 Problem Other chronic pain G89.29 Active 28188685 Problem Chronic obstructive pulmonary disease, unspecified COPD type J44.9 Active 57727139 Problem Cigarette nicotine dependence without complication F17.210 Active 10313446 Problem Sinusitis J32.9 Active 72370124 Problem Lumbago with sciatica, right side M54.41 Active [id number] Problem Chronic pain G89.29 Active 18868130 Problem Lumbago with sciatica, left side M54.42 Active 561174893 Problem DM neuro manif type II E11.49 Active 09530914 Problem Seizures R56.9 Active 02462328 Problem Iron deficiency anemia due to chronic blood loss D50.0 Active 437957892 Problem Seasonal allergies J30.2 Active 678123002 ALLERGIES No Information ENCOUNTERS Encounter Location Date Diagnosis [facility] [place] [address], [place] [address] Feb, [facility], [place] [id number] [place] [address] Jan, [facility] [id number] [place] [address] Jan, Acute cystitis with hematuria N30.01 and Dysuria R30.0 [facility], [place] [id number] [place] [address] Jan, [facility], [place] [id number] [address] Dec, [facility] [place] [address], [place] [address] Dec, [facility] [place] [address] [address] Dec, [facility] [place] [id number] [place] [address] Dec, [facility] [place] [id number] [place] [address] Dec, Routine adult health maintenance Z00.00 ; Chronic obstructive pulmonary disease, unspecified COPD type J44.9 and Encounter for immunization Z23 [facility] [place] [address], [place] [address] Nov, [facility] [place] [address], [place] [address] Nov, UTI (urinary tract infection) N39.0 and Other chronic pain G89.29 [facility] [place] [address], [place] [address] Nov, [facility] [place] [address], [place] [address] Nov, [facility] [place] [id number] [address] Nov, Painful urination R30.9 and UTI (urinary tract infection) N39.0 [facility] [place] [address], [place] [address] Nov, [facility] [place] [id number] [address] Nov, UTI (urinary tract infection) N39.0 [facility] [place] [address], [place] [address] Nov, Dysuria R30.0 ; UTI (urinary tract infection) N39.0 and Chronic pain G89.29 [place] [id number] [place] [address] Nov, [facility] [place] [id number] [place] [address] Oct, Cough R05 [place] [address] [address] Oct, Sinusitis J32.9 [place] [id number] [place] [address] Oct, [place] [id number] [place] [address] Oct, UTI (urinary tract infection) N39.0 and URI (upper respiratory infection) J06.9 [place] [id number] [place] [address] Sep, Pain in thoracic spine M54.6 [place] [id number] [place] [address] Sep, Type 2 diabetes mellitus with hyperglycemia E11.65 [place] [id number] [place] [address] Sep, Chronic obstructive pulmonary disease, unspecified COPD type J44.9 ; Abrasion of right ear canal, initial encounter S00.411A ; Cigarette nicotine dependence without complication F17.210 ; Right leg pain M79.604 and Seasonal allergies J30.2 [place] [id number] [place] [address] Aug, [place] [id number] [place] [address] Aug, [place] [id number] [place] [address] Aug, Pain in thoracic spine M54.6 [place] [address] [address] Aug, [place] [address] [address] Aug, Chronic obstructive pulmonary disease, unspecified COPD type J44.9 ; Complete amputation of right foot, 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 ; Cigarette nicotine dependence without complication F17.210 and BMI 40.0-44.9, adult Z68.41 [place] [address] [address] Jul, [place] [address] [address] Jul, [place] [address] [address] Jul, Onychomycosis B35.1 ; Onychocryptosis L60.0 and DM neuro manif type II E11.49 [place] [address] [address] Jun, Pain in thoracic spine M54.[address] [address] Jun, Iron deficiency anemia due to chronic blood loss D50.0 and Hematochezia K92.[address] [address] Jun, Gastroenteritis K52.9 and Abnormal RBC indices R71.8 [place] [address] [address] Jun, [place] [address] [address] Jun, Chest congestion R09.89 and Seizures R56.[address] [address] May, Pain in thoracic spine M54.[address] [place] [address] May, [facility], [place] [id number] [place] [address] May, [facility], [place] [id number] [place] [address] May, [facility], [place] [id number] [place] [address] May, Acute non-recurrent frontal sinusitis J01.10 and Dermatitis L30.9 [facility] [place] [id number] [place] [address] May, [facility] [place] [id number] [place] [address] May, Pain in thoracic spine M54.6 [facility], [place] [id number] [place] [address] May, [facility], [place] [id number] [place] [address] May, Acute nasopharyngitis J00 [facility] [place] [id number] [place] [address] May, [facility], [place] [id number] [place] [address] May, [facility], [place] [id number] [place] [address] Apr, [facility], [place] [id number] [place] [address] Apr, [facility], [place] [id number] [place] [address] Apr, [facility] [place] [id number] [place] [address] Apr, [facility], [place] [id number] [place] [address] Apr, Pain in right ankle and joints of right foot M25.571 [place] [id number] [place] [address] Apr, [place] [id number] [place] [address] Apr, Bronchitis J40 ; Pain in right ankle and joints of right foot M25.571 ; Other chronic pain G89.29 ; Prediabetes R73.03 ; Chronic obstructive pulmonary disease, unspecified COPD type J44.9 and Cigarette nicotine dependence without complication F17.210 [facility] [id number] [place] [address] 13 Apr, 2018 Seasonal allergic rhinitis, unspecified trigger J30.2 [place] [id number] [place] [address] 08 Apr, 2018 Onychomycosis B35.1 ; Onychocryptosis L60.0 and DM neuro manif type II E11.49 [place] [id number] [place] [address] Apr, Reactive depression F32.9 ; Thoracic myofascial strain, initial encounter S29.019A and Leg cramps R25.2 [place] [id number] [place] [address] March, [place] [id number] [place] [address] March, Type 2 diabetes mellitus with hyperglycemia E11.65 [place] [id number] [place] [address] March, Reactive depression F32.9 [place] [id number] [place] [address] March, Pain in thoracic spine M54.6 and Other chronic pain G89.29 [place] [id number] [place] [address] Feb, [place] [address] [address] Jan, Reactive depression F32.9 ; Essential hypertension I10 ; Gastroesophageal reflux disease, esophagitis presence not specified K21.9 ; Lumbago with sciatica, left side M54.42 and Lumbago with sciatica, right side M54.41 [place] [address] [address] Jan, Reactive depression F32.9 and Pharyngoesophageal dysphagia R13.14 [place] [address] [address] Jan, [address] [address] Jan, Encounter for immunization Z23 [address] [address] Jan, Onychomycosis B35.1 and DM neuro manif type II E11.49 [place] [address] [address] Jan, [place] [address] [address] Jan, Prediabetes R73.[address] [address] Dec, [place] [address] [address] Dec, Essential hypertension I10 ; Mixed hyperlipidemia E78.2 ; Acquired hypothyroidism E03.9 ; Reactive depression F32.9 and Prediabetes R73.03 [place] [address] [address] Dec, [place] [address] [address] Dec, [place] [address] [id number] Dec, DM neuro manif type II E11.49 [facility] [address], [place] [address] Dec, Bruise T14.8XXA ; Type 2 diabetes mellitus with hyperglycemia E11.65 and 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 [facility] [place] [id number] [place] [address] Oct, [facility] [place] [id number] [place] [address] March, Onychomycosis B35.1 and DM neuro manif type II E11.49 [facility] [place] [id number] [place] [address] Jun, [facility] [place] [id number] [place] [address] Jun, [facility] [place] [id number] [place] [address] Jun, COPD with acute exacerbation 491.21 [facility] [place] [id number] [place] [address] Apr, [facility] [place] [id number] [place] [address] Feb, [facility] [place] [address], [place] [address] Feb, [facility] [place] [id number] [place] [address] Jan, [facility] [place] [id number] [place] [address] Jan, [facility] [place] [id number] [place] [address] Jan, [facility] [place] [address], [place] [address] Jan, [facility] [place] [address] [facility] [id number] [place] [address] 24 Jan, 2014 [facility] [place] [facility] [address] [id number] [place] [address] 23 Jan, 2014 [facility] [place] [facility] [address] [id number] [place] [address] 23 Jan, 2014 [facility] [place] [facility] [address] [id number] [place] [address] 23 Jan, 2014 [facility] [place] [facility] [address] [id number] [place] [address] 23 Jan, 2014 [facility] [place] [facility] [address] [id number] [place] [address] 19 Jan, 2014 [facility] [place] [facility] [address] [id number] [place] [address] 19 Jan, 2014 [facility] [place] [facility] [address] [id number] [place] [address] 18 Jan, 2014 [facility] [place] [facility] [address] [id number] [place] [address] 18 Jan, 2015 [facility] [place] [facility] [address] [id number] [place] [address] 16 Jan, 2014 [facility] [place] [facility] [address] [id number] [place] [address] 16 Jan, 2014 [facility] [place] [facility] [address] [id number] [place] [address] 16 Jan, 2014 [facility] [place] [facility] [address] [id number] [place] [address] 16 Jan, 2014 [facility] [place] [facility] [address] [id number] [place] [address] 15 Jan, 2014 [facility] [place] [facility] [address] [id number] [place] [address] 13 Jan, 2014 [facility] [place] [facility] [address] [id number] [place] [address] 13 Jan, 2015 [facility] [place] [facility] [address] [id number] [place] [address] 13 Jan, 2015 [facility] [place] [facility] [address] [id number] [place] [address] Jan, [facility] [place] [facility] [address] [facility] [id number] [place] [address] Jan, [facility] [place] [facility] [address] [id number] [place] [address] Jan, [facility] [place] [facility] [address] [id number] [place] [address] Jan, [facility] [place] [facility] [address] [id number] [place] [address] 24 Dec, 2014 [facility] [place] [facility] [address] [facility] [id number] [place] [address] Dec, [facility] [place] [facility] [address] [facility] [id number] [place] [address] Dec, [facility] [place] [facility] [address] [facility] [id number] [place] [address] Dec, [facility] [place] [facility] [address] [facility] [id number] [place] [address] Dec, 2014 [facility] [place] [facility] [address] [facility] [id number] [place] [address] Dec, 2014 [facility] [place] [facility] [address] [facility] [id number] [place] [address] Dec, 2014 [facility] [place] [facility] [address] [facility] [id number] [place] [address] Dec, 2014 [facility] [place] [facility] [address] [facility] [id number] [place] [address] Dec, 2014 [facility] [place] [facility] [address] [facility] [id number] [place] [address] Dec, 2014 [facility] [place] [facility] [address] [id number] [place] [address] Dec, [facility] [place] [facility] [address] [id number] [place] [address] Dec, [facility] [place] [facility] [address] [id number] [place] [address] Nov, [facility] [place] [facility] [address] [id number] [place] [address] Nov, [facility] [place] [facility] [address] [id number] [place] [address] Nov, [facility] [place] [facility] [address] [id number] [place] [address] Nov, [facility] [place] [facility] [address] [id number] [place] [address] Nov, [facility] [place] [facility] [address] [id number] [place] [address] Nov, [facility] [place] [facility] [address] [id number] [place] [address] Nov, [facility] [place] [facility] [address] [id number] [place] [address] Nov, [facility] [place] [facility] [address] [id number] [place] [address] Nov, [facility] [place] [facility] [address] [id number] [place] [address] Nov, [facility] [place] [facility] [address] [id number] [place] [address] Nov, [facility] [place] [facility] [address] [id number] [place] [address] Nov, [facility] [place] [facility] [address] [id number] [place] [address] Oct, [facility] [place] [facility] [address] [id number] [place] [address] 31 Oct, 2014 [facility] [place] [facility] [address] [id number] [place] [address] 30 Oct, 2014 [facility] [place] [facility] [address] [id number] [place] [address] 30 Oct, 2014 [facility] [place] [facility] [address] [id number] [place] [address] 29 Oct, 2014 [facility] [place] [facility] [address] [id number] [place] [address] 29 Oct, 2014 [facility] [place] [facility] [address] [id number] [place] [address] Oct, [facility] [place] [facility] [address] [id number] [place] [address] Oct, [facility] [place] [facility] [address] [id number] [place] [address] 17 Oct, 2014 [facility] [place] [facility] [address] [id number] [place] [address] 17 Oct, 2014 [facility] [place] [facility] [address] [id number] [place] [address] 16 Oct, 2014 [facility] [place] [facility] [address] [id number] [place] [address] 16 Oct, 2014 [facility] [place] [facility] [address] [id number] [place] [address] 15 Oct, 2014 [facility] [place] [facility] [address] [id number] [place] [address] 15 Oct, 2014 [facility] [place] [facility] [address] [id number] [place] [address] 08 Oct, 2014 [facility] [place] [facility] [address] [id number] [place] [address] 24 Sep, 2014 [facility] [place] [facility] [address] [id number] [place] [address] Sep, [facility] [place] [facility] [address] [id number] [place] [address] Sep, [facility] [place] [facility] [address] [id number] [place] [address] Sep, [facility] [place] [facility] [address] [id number] [place] [address] Aug, [facility] [place] [facility] [address] [id number] [place] [address] Aug, [facility] [place] [facility] [address] [id number] [place] [address] Aug, [facility] [place] [facility] [address] [id number] [place] [address] Aug, [facility] [place] [facility] [address] [id number] [place] [address] Aug, [facility] [place] [facility] [address] [id number] [place] [address] Aug, [facility] [place] [facility] [address] [id number] [place] [address] 29 Jul, 2014 [facility] [place] [facility] [address] [id number] [place] [address] 29 Jul, 2014 [facility] [place] [facility] [address] [id number] [place] [address] 15 Jul, 2014 [facility] [place] [facility] [address] [id number] [place] [address] 15 Jul, 2014 [facility] [place] [facility] [address] [id number] [place] [address] 08 Jul, 2014 [facility] [place] [facility] [address] [id number] [place] [address] 08 Jul, 2014 [facility] [place] [facility] [address] [id number] [place] [address] Jun, [facility] [place] [facility] [address] [id number] [place] [address] Jun, [facility] [place] [facility] [address] [id number] [place] [address] Jun, [facility] [place] [facility] [address] [id number] [place] [address] Jun, [facility] [place] [facility] [address] [id number] [place] [address] Jun, [facility] [place] [facility] [address] [id number] [place] [address] Jun, [facility] [place] [facility] [address] [id number] [place] [address] Jun, [facility] [place] [facility] [address] [id number] [place] [address] May, [facility] [place] [facility] [address] [id number] [place] [address] May, [facility] [place] [facility] [address] [id number] [place] [address] May, [facility] [place] [facility] [address] [id number] [place] [address] May, [facility] [place] [facility] [address] [id number] [place] [address] May, [facility] [place] [facility] [address] [id number] [place] [address] May, [facility] [place] [facility] [address] [id number] [place] [address] May, [facility] [place] [facility] [address] [id number] [place] [address] May, [facility] [place] [facility] [address] [id number] [place] [address] May, [facility] [place] [facility] [address] [id number] [place] [address] May, [facility] [place] [facility] [address] [id number] [place] [address] May, [facility] [place] [facility] [address] [id number] [place] [address] May, [facility] [place] [facility] [address] [id number] [place] [address] Apr, [facility] [place] [facility] [address] [id number] [place] [address] Apr, [facility] [place] [facility] [address] [id number] [place] [address] Apr, [facility] [place] [facility] [address] [id number] [place] [address] Apr, [facility] [place] [facility] [address] [id number] [place] [address] Apr, [facility] [place] [facility] [address] [id number] [place] [address] Apr, [facility] [place] [facility] [address] [id number] [place] [address] Apr, [facility] [place] [facility] [address] [id number] [place] [address] Apr, [facility] [place] [facility] [address] [id number] [place] [address] Apr, [facility] [place] [facility] [address] [id number] [place] [address] Apr, [facility] [place] [facility] [address] [id number] [place] [address] March, [facility] [place] [facility] [address] [id number] [place] [address] March, [facility] [place] [facility] [address] [id number] [place] [address] March, [facility] [place] [facility] [address] [id number] [place] [address] March, [facility] [place] [facility] [address] [id number] [place] [address] March, [facility] [place] [facility] [address] [id number] [place] [address] March, [facility] [place] [facility] [address] [id number] [place] [address] Feb, [facility] [place] [facility] [address] [id number] [place] [address] Feb, [facility] [place] [facility] [address] [id number] [place] [address] Feb, [facility] [place] [facility] [address] [id number] [place] [address] Feb, [facility] [place] [facility] [address] [id number] [place] [address] Feb, [facility] [place] [facility] [address] [id number] [place] [address] Feb, [facility] [place] [facility] [address] [id number] [place] [address] Feb, [facility] [place] [facility] [address] [id number] [place] [address] Feb, [facility] [place] [facility] [address] [id number] [place] [address] Feb, [facility] [place] [facility] [address] [id number] [place] [address] Feb, [facility] [place] [facility] [address] [id number] [place] [address] Jan, [facility] [place] [facility] [address] [id number] [place] [address] Jan, [facility] [place] [facility] [address] [id number] [place] [address] Jan, [facility] [place] [facility] [address] [id number] [place] [address] Jan, [facility] [place] [facility] [address] [id number] [place] [address] Jan, [facility] [place] [facility] [address] [id number] [place] [address] Jan, [facility] [place] [facility] [address] [id number] [place] [address] Jan, [facility] [place] [facility] [address] [id number] [place] [address] Jan, [facility] [place] [facility] [address] [id number] [place] [address] Dec, [facility] [place] [facility] [address] [id number] [place] [address] Dec, [facility] [place] [facility] [address] [id number] [place] [address] Dec, [facility] [place] [facility] [address] [id number] [place] [address] Dec, [facility] [place] [facility] [address] [id number] [place] [address] Dec, [facility] [place] [facility] [address] [id number] [place] [address] Dec, [facility] [place] [facility] [address] [id number] [place] [address] Dec, [facility] [place] [facility] [address] [id number] [place] [address] Dec, [facility] [place] [facility] [address] [id number] [place] [address] Nov, [facility] [place] [facility] [address] [id number] [place] [address] Nov, [facility] [place] [facility] [address] [id number] [place] [address] Nov, [facility] [place] [facility] [address] [id number] [place] [address] Nov, [facility] [address] [id number] [place] [address] Nov, [facility] [place] [facility] [address] [id number] [place] [address] Nov, [facility] [address] [id number] [place] [address] Nov, [facility] [place] [facility] [address] [id number] [place] [address] Nov, [facility] [place] [facility] [address] [id number] [place] [address] Nov, [facility] [place] [facility] [address] [id number] [place] [address] Nov, [facility] [place] [facility] [address] [id number] [place] [address] Nov, [facility] [address] [id number] [place] [address] Oct, [facility] [place] [facility] [address] [id number] [place] [address] Oct, [facility] [place] [facility] [address] [id number] [place] [address] Oct, [facility] [place] [facility] [address] [id number] [place] [address] Oct, [facility] [place] [facility] [address] [id number] [place] [address] Sep, [facility] [place] [facility] [address] [id number] [place] [address] Sep, [facility] [place] [facility] [address] [id number] [place] [address] Sep, [facility] [place] [facility] [address] [id number] [place] [address] Sep, [facility] [place] [facility] [address] [id number] [place] [address] Aug, [facility] [place] [facility] [address] [id number] [place] [address] Aug, [facility] [place] [facility] [address] [id number] [place] [address] Aug, [facility] [place] [facility] [address] [id number] [place] [address] Aug, [facility] [place] [facility] [address] [id number] [place] [address] Aug, [facility] [place] [facility] [address] [id number] [place] [address] Aug, [facility] [place] [facility] [address] [id number] [place] [address] Aug, [facility] [place] [facility] [address] [id number], [place] [address] Aug, [facility] [place] [facility] [address] [id number] [place] [address] 28 Jul, 2013 [facility] [place] [facility] [address] [id number], [place] [address] 27 Jul, 2013 [facility] [place] [facility] [address] [id number], [place] [address] 26 Jul, 2012 [facility] [place] [facility] [address] [id number], [place] [address] 24 Jul, 2012 [facility] [place] [facility] [address] [id number] [place] [address] 24 Jul, 2012 [facility] [place] [facility] [address] [id number], [place] [address] 23 Jul, 2012 [facility] [place] [facility] [address] [id number], [place] [address] 19 Jul, 2012 [facility] [place] [facility] [address] [id number] [place] [address] 18 Sep, 2012 [facility] [place] [facility] [address] [id number] [place] [address] 17 Sep, 2012 [facility] [place] [facility] [address] [id number] [place] [address] 16 Jul, 2012 [facility] [place] [facility] [address] [id number] [place] [address] 13 Jul, 2012 [facility] [place] [facility] [address] [id number] [place] [address] 13 Jul, 2012 [facility] [place] [facility] [address] [id number] [place] [address] 12 Jul, 2012 [facility] [place] [facility] [address] [id number] [place] [address] 11 Jul, 2012 [facility] [place] [facility] [address] [id number] [place] [address] 04 Jul, 2012 [facility] [place] [facility] [address] [id number] [place] [address] 30 Jun, 2013 [facility] [place] [facility] [address] [id number] [place] [address] Jun, [facility] [place] [facility] [address] [id number] [place] [address] Jun, [facility] [place] [facility] [address] [id number] [place] [address] May, [facility] [place] [facility] [address] [id number] [place] [address] May, [facility] [place] [facility] [address] [id number] [place] [address] May, [facility] [place] [facility] [address] [id number] [place] [address] May, [facility] [place] [facility] [address] [id number] [place] [address] Apr, [facility] [place] [facility] [address] [id number] [place] [address] Apr, [facility] [address] [id number] [place] [address] Apr, [facility] [address] [id number] [place] [address] Apr, [facility] [address] [id number] [place] [address] March, [facility] [address] [id number] [place] [address] March, [facility] [address] [id number] [place] [address] March, [facility] [address] [id number] [place] [address] Feb, [facility] [address] [id number] [place] [address] Feb, [facility] [address] [id number] [place] [address] Jan, [facility] [address] [id number] [place] [address] Jan, [facility] [address] [id number] [place] [address] Jan, [facility] [address] [id number] [place] [address] Jan, [facility] [address] [id number] [place] [address] Jan, [facility] [place] [facility] [address] [id number] [place] [address] Dec, [facility] [place] [facility] [address] [id number] [place] [address] Dec, [facility] [address] [id number] [place] [address] Dec, [facility] [address] [id number] [place] [address] Dec, [facility] [address] [id number] [place] [address] 18 Dec, 2012 [facility] [address] [id number] [place] [address] Dec, [facility] [address] [id number] [place] [address] Dec, [facility] [address] [id number] [place] [address] Dec, [facility] [address] [id number] [place] [address] Nov, [facility] [address] [id number] [place] [address] Nov, [facility] [address] [id number] [place] [address] Nov, [facility] [address] [id number] [place] [address] Nov, [facility] [address] [id number] [place] [address] Nov, [facility] [address] [id number] [place] [address] Nov, [facility] [address] [id number] [place] [address] Nov, [facility] [address] [id number] [place] [address] Oct, [facility] [place] [facility] [address] [id number] [place] [address] Oct, [facility] [address] [id number] [place] [address] Oct, [facility] [place] [facility] [address] [id number] [place] [address] Oct, [facility] [place] [facility] [address] [id number] [place] [address] Oct, [facility] [place] [facility] [address] [id number] [place] [address] Oct, [facility] [place] [facility] [address] [id number] [place] [address] Oct, [facility] [place] [facility] [address] [id number] [place] [address] Oct, [facility] [place] [facility] [address] [id number] [place] [address] Sep, [facility] [place] [facility] [address] [id number] [place] [address] Sep, [facility] [place] [facility] [address] [id number] [place] [address] Sep, [facility] [place] [facility] [address] [id number] [place] [address] Sep, [facility] [place] [facility] [address] [id number] [place] [address] Sep, [facility] [place] [facility] [address] [id number] [place] [address] Sep, [facility] [place] [facility] [address] [id number] [place] [address] Sep, [facility] [place] [facility] [address] [id number] [place] [address] Sep, [facility] [place] [facility] [address] [id number] [place] [address] Sep, [facility] [place] [facility] [address] [id number] [place] [address] Sep, [facility] [place] [facility] [address] [id number] [place] [address] Sep, [facility] [place] [facility] [address] [id number] [place] [address] Sep, [facility] [place] [facility] [address] [id number] [place] [address] Sep, [facility] [place] [facility] [address] [facility] [id number] [place] [address] Sep, [facility] [place] [facility] [address] [id number] [place] [address] Sep, [facility] [place] [facility] [address] [id number] [place] [address] Sep, [facility] [place] [facility] [address] [facility] [id number] [place] [address] Sep, [facility] [place] [facility] [address] [facility] [id number] [place] [address] Sep, [facility] [place] [facility] [address] [id number], [place] [address] Sep, [facility] [place] [facility] [address] [id number], [place] [address] Sep, [facility] [place] [facility] [address] [facility] [id number], [place] [address] Aug, [facility] [place] [facility] [address] [id number], [place] [address] 31 Aug, 2012 [facility] [place] [facility] [address] [id number], [place] [address] 29 Aug, 2012 [facility] [place] [facility] [address] [id number], [place] [address] Aug, [facility] [place] [facility] [address] [facility] [id number], [place] [address] Aug, [facility] [place] [facility] [address] [facility] [id number], [place] [address] 18 Aug, 2012 [facility] [place] [facility] [address] [id number] [place] [address] 18 Aug, 2012 [facility] [place] [facility] [address] [id number] [place] [address] 17 Aug, 2012 [facility] [place] [facility] [address] [id number] [place] [address] 16 Aug, 2012 [facility] [place] [facility] [address] [id number] [place] [address] 16 Aug, 2012 [facility] [place] [facility] [address] [id number] [place] [address] 15 Aug, 2012 [facility] [place] [facility] [address] [id number] [place] [address] 09 Aug, 2012 [facility] [place] [facility] [address] [id number] [place] [address] 05 Aug, 2012 [facility] [place] [facility] [address] [id number] [place] [address] 05 Aug, 2012 [facility] [place] [facility] [address] [id number] [place] [address] 04 Aug, 2012 [facility] [place] [facility] [address] [id number] [place] [address] 14 Jul, 2012 [facility] [place] [facility] [address] [id number] [place] [address] 10 Jul, 2012 [facility] [place] [facility] [address] [id number] [place] [address] Jun, [facility] [place] [facility] [address] [id number] [place] [address] Jun, [facility] [place] [facility] [address] [id number] [place] [address] 31 May, 2012 [facility] [place] [facility] [address] [id number] [place] [address] May, [facility] [place] [facility] [address] [id number] [place] [address] May, [facility] [place] [facility] [address] [id number] [place] [address] May, [facility] [place] [facility] [address] [id number] [place] [address] May, [facility] [place] [facility] [address] [id number] [place] [address] May, [facility] [place] [facility] [address] [id number] [place] [address] Apr, [facility] [address] [id number] [place] [address] Apr, [facility] [place] [facility] [address] [id number] [place] [address] March, [facility] [address] [id number] [place] [address] March, [facility] [address] [id number] [place] [address] March, [facility] [place] [facility] [address] [id number] [place] [address] March, [facility] [place] [facility] [address] [id number] [place] [address] March, [facility] [place] [facility] [address] [id number] [place] [address] March, [facility] [place] [facility] [address] [id number] [place] [address] Feb, [facility] [place] [facility] [address] [id number] [place] [address] Feb, [facility] [place] [facility] [address] [id number] [place] [address] Feb, [facility] [place] [facility] [address] [id number] [place] [address] Feb, [facility] [place] [facility] [address] [id number] [place] [address] 23 Feb, 2012 [facility] [address] [id number] [place] [address] 19 Feb, 2012 [facility] [place] [facility] [address] [id number] [place] [address] 10 Feb, 2012 [facility] [place] [facility] [address] [id number] [place] [address] Feb, [facility] [place] [facility] [address] [id number] [place] [address] 04 Feb, 2012 [facility] [place] [facility] [address] [id number] [place] [address] 30 Jan, 2012 [facility] [place] [facility] [address] [id number] [place] [address] 27 Jan, 2012 [facility] [place] [facility] [address] [id number] [place] [address] Jan, [facility] [place] [facility] [address] [id number] [place] [address] 22 Jan, 2012 [facility] [place] [facility] [address] [id number] [place] [address] Jan, [facility] [place] [facility] [address] [id number] [place] [address] 20 Jan, 2012 [facility] [place] [facility] [address] [id number] [place] [address] 14 Jan, 2012 [facility] [place] [facility] [address] [id number] [place] [address] Jan, [facility] [place] [facility] [address] [id number] [place] [address] Jan, [facility] [place] [facility] [address] [id number] [place] [address] 08 Jan, 2012 [facility] [place] [facility] [address] [id number] [place] [address] 07 Jan, 2012 [facility] [place] [facility] [address] [id number] [place] [address] Jan, [facility] [place] [facility] [address] [id number] [place] [address] Jan, [facility] [place] [facility] [address] [id number] [place] [address] Jan, [facility] [place] [facility] [address] [id number] [place] [address] Dec, [facility] [place] [facility] [address] [id number] [place] [address] Dec, [facility] [place] [facility] [address] [id number] [place] [address] Dec, [facility] [place] [facility] [address] [id number] [place] [address] Dec, [facility] [place] [facility] [address] [id number] [place] [address] 16 Dec, 2011 [facility] [place] [facility] [address] [id number] [place] [address] Dec, [facility] [place] [facility] [address] [facility] [id number] [place] [address] 08 Dec, 2011 [facility] [place] [facility] [address] [facility] [id number] [place] [address] Dec, [facility] [place] [facility] [address] [id number], [place] [address] Dec, [facility] [place] [facility] [address] [id number] [place] [address] Nov, [facility] [place] [facility] [address] [id number] [place] [address] Nov, [facility] [place] [facility] [address] [facility] [id number], [place] [address] Nov, [facility] [place] [facility] [address] [id number], [place] [address] Nov, [facility] [address] [id number] [place] [address] Oct, [facility] [place] [facility] [address] [id number] [place] [address] Oct, [facility] [place] [facility] [address] [id number] [place] [address] Oct, [facility] [place] [facility] [address] [id number] [place] [address] Oct, [facility] [place] [facility] [address] [id number] [place] [address] Oct, [facility] [place] [facility] [address] [id number] [place] [address] Oct, [facility] [place] [facility] [address] [facility] [id number] [place] [address] Oct, [facility] [place] [facility] [address] [id number] [place] [address] Sep, [facility] [place] [facility] [address] [facility] [id number] [place] [address] Sep, [facility] [place] [facility] [address] [facility] [id number] [place] [address] Sep, [facility] [place] [facility] [address] [id number], [place] [address] Sep, [facility] [place] [facility] [address] [id number], [place] [address] Sep, [facility] [place] [facility] [address] [id number] [place] [address] Sep, [facility] [place] [facility] [address] [facility] [id number] [place] [address] Sep, [facility] [place] [facility] [address] [facility] [id number] [place] [address] Sep, [facility] [place] [facility] [address] [id number] [place] [address] Sep, [facility] [place] [facility] [address] [id number] [place] [address] 30 Aug, 2011 [facility] [facility] [address] [id number] [place] [address] Aug, [facility] [place] [facility] [address] [id number] [place] [address] Aug, [facility] [place] [facility] [address] [id number] [place] [address] May, [facility] [place] [facility] [address] [id number] [place] [address] Nov, [facility] [place] [facility] [address] [id number] [place] [address] 31 Oct, 2010 [facility] [place] [facility] [address] [id number] [place] [address] 30 Oct, 2010 [facility] [address] [id number] [place] [address] Oct, [facility] [address] [id number] [place] [address] Oct, [facility] [address] [facility] [id number] [place] [address] Oct, [facility] [address] [id number] [place] [address] Sep, [facility] [address] [id number] [place] [address] Sep, [facility] [address] [id number] [place] [address] 14 Jul, 2010 [facility] [address] [id number] [place] [address] 31 Oct, 2009 [facility] [facility] [address] [id number] [place] [address] Oct, [facility] [place] [address] [facility] [id number], [place] [address] Oct, [facility] [place] [address] [facility] [id number], [place] [address] Oct, [facility] [place] [address] [facility] [id number], [place] [address] Sep, [facility] [place] [address] [facility] [id number], [place] [address] Sep, [facility] [place] [address] [facility] [id number], [place] [address] Sep, [facility] [place] [address] [facility] [id number], [place] [address] Sep, [facility] [place] [id number], [place] [address] Sep, [facility] [place] [address] [id number], [place] [address] Jul, [facility] [place] [address] [id number], [place] [address] Apr, [facility] [place] [address] [id number], [place] [address] 12 Dec, 2008 IMMUNIZATIONS No Known Immunizations SOCIAL HISTORY Never Assessed REASON FOR VISIT EMR-[facility] [place] PLAN OF CARE VITAL SIGNS MEDICATIONS Unknown [...]
[2019-06-14 11:34] LABS: BACTERIA,URINE LARGE /HPF; WBC,URINE >100 /HPF
[2019-06-14 11:36] LABS: AMPHETAMINE SCREEN, URINE NEGATIVE (NEGATIVE); BARBITURATE SCREEN URINE NEGATIVE (NEGATIVE); BENZODIAZEPINES SCREEN URINE NEGATIVE (NEGATIVE); CANNABINOID SCREEN, URINE NEGATIVE (NEGATIVE); COCAINE SCREEN URINE NEGATIVE (NEGATIVE); METHADONE STAT NEGATIVE (NEGATIVE); METHAMPHETAMINE SCREEN URINE S NEGATIVE (NEGATIVE); OPIATE SCREEN URINE NEGATIVE (NEGATIVE); OXYCODONE STAT NEGATIVE (NEGATIVE); PROPOXYPHENE STAT NEGATIVE (NEGATIVE); TRICYCLIC ANTIDEPRESSANTS SCRE NEGATIVE (NEGATIVE)
[2019-06-14 11:38] LABS: INR 1.1 (0.8-1.4); PROTHROMBIN TIME PATIENT 14.1 SEC (12.2-14.7)
[2019-06-14] MEDS ORDERED: cefTRIAXone FOR IV USE 1,000 MG in WATER (STERILE) FOR INJECTION 10 ML IV ONE (11:45)
[2019-06-14] MEDS ORDERED: LACTATED RINGERS 1,000 ML IV SCH ×2 (11:45→15:45)
--- NOTE | 2019-06-14 12:19 | Diagnostic Imaging Report ---
PATIENT HISTORY: Left lower abdominal pain that radiates to the back. TECHNIQUE: Single frontal view of the chest. COMPARISON: Chest radiograph on 05/27/2018. FINDINGS: Interval increase in patchy opacities in the right mid and lower lung. Possible small right pleural effusion. Stable cardiomediastinal silhouette. No acute osseous abnormalities. IMPRESSION: Interval increase in patchy opacities in the right mid and lower lung, which may represent infection and/or atelectasis. Small right pleural effusion may also coexist. Dictated by: Dictated on workstation # [id number]
[2019-06-14] MEDS ORDERED: CEFEPIME INJECTION 1,000 MG in WATER (STERILE) FOR INJECTION 10 ML IV ONE (12:30)
[2019-06-14 12:39] LABS: BAND NEUTROPHILS 3 %; BASOPHILS % (MANUAL) 0 %; EOSINOPHILS % (MANUAL) 1 %; LYMPHOCYTES % (MANUAL) 2 %; MONOCYTES % (MANUAL) 3 %; NEUTROPHILS % (MANUAL) 91 %
[2019-06-14 12:40] LABS: ANISOCYTOSIS MODERATE; HYPOCHROMASIA SLIGHT; MICROCYTOSIS MODERATE; POIKILOCYTOSIS SLIGHT; POLYCHROMASIA SLIGHT
[2019-06-14 12:41] LABS: ELLIPT/OVALOCYTES SLIGHT
--- OUTSIDE RECORDS SUMMARY | 2019-06-14 12:41 | XMS REPORT | Continuity of Care Document ---
Author Organization Unknown Address Unknown Allergies Active Description Code Type Severity Reaction Onset Reported/Identified Relationship to Patient Clinical Status Yes codeine Drug Allergy N/A N/A 01/02/2009 Yes Penicillins Drug Allergy N/A N/A 01/02/2009 Yes codeine Drug Allergy 01/02/2009 Yes Penicillins Drug Allergy 01/02/2009 Yes aspirin Drug Allergy N/A N/A 12/02/2012 Yes aspirin Drug Allergy 12/02/2012 Yes peanut Drug Allergy N/A N/A 2014 Yes tramadol [id number] Drug Allergy Mild N/V 07/23/2018 Yes aspirin [id number] Drug Allergy Mild Nausea 07/30/2018 Yes codeine [id number] Drug Allergy Mild Nausea 07/30/2018 Yes Penicillins [id number] Drug Allergy Mild Hives 07/30/2018 Yes amlodipine besylate [id number] Drug Allergy Unknown N/A 07/30/2018 Yes benazepril HCl [id number] Drug Allergy Unknown N/A 07/30/2018 Yes Lledjlq-Zgi-Era Reductase Inhibitor [id number] Drug Allergy Unknown N/A 07/30/2018 Medications There is no data. Problems Date Dx Coded Attending Type Code Diagnosis Diagnosed By 06/27/2008 LAURIE MORA APRN 250.02 DIABETES MELLITUS TYPE II - UNCOMPLICATED, UNCONTROLLED 06/27/2008 250.02 Diabetes Mellitus Type Ii - Uncomplicated, Uncontrolled 06/27/2008 LAURIE MORA APRN 250.02 Diabetes Mellitus Type Ii - Uncomplicated, Uncontrolled 06/27/2008 LAURIE MORA APRN 250.02 Diabetes Mellitus Type Ii - Uncomplicated, Uncontrolled 06/27/2008 ROMELIA FISCHER MD 250.02 Diabetes Mellitus Type Ii - Uncomplicated, [...] Type Ii - Uncomplicated, Uncontrolled 06/27/2008 MADL PRECISION THREAD GRINDER OPERATOR, ETELVINA L 250.02 Diabetes Mellitus Type Ii - Uncomplicated, Uncontrolled 06/27/2008 MADL PRECISION THREAD GRINDER OPERATOR, ETELVINA L 250.02 Diabetes Mellitus Type Ii - Uncomplicated, Uncontrolled 06/27/2008 MADL PRECISION THREAD GRINDER OPERATOR, ETELVINA L 250.02 Diabetes Mellitus Type Ii - Uncomplicated, Uncontrolled 06/27/2008 SALGUERO DO LADONNA K 250.02 Diabetes Mellitus Type Ii - Uncomplicated, Uncontrolled 06/27/2008 SALGUERO DO LADONNA K 250.02 Diabetes Mellitus Type Ii - Uncomplicated, Uncontrolled 06/27/2008 MADL PRECISION THREAD GRINDER OPERATOR, ETELVINA L 250.02 Diabetes Mellitus Type Ii - Uncomplicated, Uncontrolled 06/27/2008 MADL PRECISION THREAD GRINDER OPERATOR, ETELVINA L 250.02 Diabetes Mellitus Type Ii - Uncomplicated, Uncontrolled 06/27/2008 MADL PRECISION THREAD GRINDER OPERATOR, ETELVINA L 250.02 Diabetes Mellitus Type Ii - Uncomplicated, Uncontrolled 06/27/2008 MADL PRECISION THREAD GRINDER OPERATOR, ETELVINA L 250.02 Diabetes Mellitus Type Ii - Uncomplicated, Uncontrolled 06/27/2008 MADL PRECISION THREAD GRINDER OPERATOR, ETELVINA L 250.02 Diabetes Mellitus Type Ii - Uncomplicated, Uncontrolled 06/27/2008 MADL PRECISION THREAD GRINDER OPERATOR, ETELVINA L 250.02 Diabetes Mellitus Type Ii - Uncomplicated, Uncontrolled 06/27/2008 MADL PRECISION THREAD GRINDER OPERATOR, ETELVINA L 250.02 Diabetes Mellitus Type Ii - Uncomplicated, Uncontrolled 06/27/2008 SALGUERO DO, LADONNA K 250.02 Diabetes Mellitus Type Ii - Uncomplicated, Uncontrolled 06/27/2008 SALGUERO DO, LADONNA K 250.02 Diabetes Mellitus Type Ii - Uncomplicated, Uncontrolled 06/27/2008 MADL PRECISION THREAD GRINDER OPERATOR, ETELVINA L 250.02 Diabetes Mellitus Type Ii - Uncomplicated, Uncontrolled 06/27/2008 SALGUERO DO, LADONNA K 250.02 Diabetes Mellitus Type Ii - Uncomplicated, Uncontrolled 06/27/2008 MADL PRECISION THREAD GRINDER OPERATOR, ETELVINA L 250.02 Diabetes Mellitus Type Ii - Uncomplicated, Uncontrolled 09/27/2008 SUSHANT MORA APRNA S 250.00 DIABETES MELLITUS 09/27/2008 SUSHANT MORA APRNA S 401.1 ESSENTIAL HYPERTENSION BENIGN 09/27/2008 250.00 DIABETES MELLITUS 09/27/2008 401.1 ESSENTIAL HYPERTENSION BENIGN 09/27/2008 PALOMA MORA APRNNDA S 250.00 DIABETES MELLITUS 09/27/2008 PALOMA MORA APRNNDA S 401.1 ESSENTIAL HYPERTENSION BENIGN 09/27/2008 PALOMA MORA APRNNDA S 250.00 DIABETES MELLITUS 09/27/2008 SUSHANT MORA APRNA S 401.1 ESSENTIAL HYPERTENSION BENIGN 09/27/2008 ROMELIA [...] MELLITUS 09/27/2008 401.1 ESSENTIAL HYPERTENSION BENIGN 09/27/2008 KARYN OLVERA, BYRON M 250.00 DIABETES MELLITUS 09/27/2008 BYRON BOSS MD 401.1 ESSENTIAL HYPERTENSION BENIGN 09/27/2008 KARYN OLVERA, BYRON M 250.00 DIABETES MELLITUS 09/27/2008 BYRON BOSS [...] K 401.1 ESSENTIAL HYPERTENSION BENIGN 09/27/2008 MADL PRECISION THREAD GRINDER OPERATOR, ETELVINA L 250.00 DIABETES MELLITUS 09/27/2008 MADL PRECISION THREAD GRINDER OPERATOR, ETELVINA L 401.1 ESSENTIAL HYPERTENSION BENIGN 09/27/2008 MADL PRECISION THREAD GRINDER OPERATOR, ETELVINA L 250.00 DIABETES MELLITUS 09/27/2008 MADL PRECISION THREAD GRINDER OPERATOR, ETELVINA L 401.1 ESSENTIAL HYPERTENSION BENIGN 09/27/2008 MADL PRECISION THREAD GRINDER OPERATOR, ETELVINA L 250.00 DIABETES MELLITUS 09/27/2008 MADL PRECISION THREAD GRINDER OPERATOR, ETELVINA L 401.1 ESSENTIAL HYPERTENSION BENIGN 09/27/2008 SALGUERO DO, LADONNA K 250.00 DIABETES MELLITUS 09/27/2008 SALGUERO DO, LADONNA K 401.1 ESSENTIAL HYPERTENSION BENIGN 09/27/2008 SALGUERO DO, LADONNA K 250.00 DIABETES MELLITUS 09/27/2008 SALGUERO DO, LADONNA K 401.1 ESSENTIAL HYPERTENSION BENIGN 09/27/2008 MADL PRECISION THREAD GRINDER OPERATOR, ETELVINA L 250.00 DIABETES MELLITUS 09/27/2008 MADL PRECISION THREAD GRINDER OPERATOR, ETELVINA L 401.1 ESSENTIAL HYPERTENSION BENIGN 09/27/2008 MADL PRECISION THREAD GRINDER OPERATOR, ETELVINA L 250.00 DIABETES MELLITUS 09/27/2008 MADL PRECISION THREAD GRINDER OPERATOR, ETELVINA L 401.1 ESSENTIAL HYPERTENSION BENIGN 09/27/2008 MADL PRECISION THREAD GRINDER OPERATOR, ETELVINA L 250.00 DIABETES MELLITUS 09/27/2008 MADL PRECISION THREAD GRINDER OPERATOR, ETELVINA L 401.1 ESSENTIAL HYPERTENSION BENIGN 09/27/2008 MADL PRECISION THREAD GRINDER OPERATOR, ETELVINA L 250.00 DIABETES MELLITUS 09/27/2008 MADL PRECISION THREAD GRINDER OPERATOR, ETELVINA L 401.1 ESSENTIAL HYPERTENSION BENIGN 09/27/2008 MADL PRECISION THREAD GRINDER OPERATOR, ETELVINA L 250.00 DIABETES MELLITUS 09/27/2008 MADL PRECISION THREAD GRINDER OPERATOR, ETELVINA L 401.1 ESSENTIAL HYPERTENSION BENIGN 09/27/2008 MADL PRECISION THREAD GRINDER OPERATOR, ETELVINA L 250.00 DIABETES MELLITUS 09/27/2008 MADL PRECISION THREAD GRINDER OPERATOR, ETELVINA L 401.1 ESSENTIAL HYPERTENSION BENIGN 09/27/2008 MADL PRECISION THREAD GRINDER OPERATOR, ETELVINA L 250.00 DIABETES MELLITUS 09/27/2008 MADL PRECISION THREAD GRINDER OPERATOR, ETELVINA L 401.1 ESSENTIAL HYPERTENSION BENIGN 09/27/2008 SALGUERO DO, LADONNA K 250.00 DIABETES MELLITUS 09/27/2008 SALGUERO DO, LADONNA K 401.1 ESSENTIAL HYPERTENSION BENIGN 09/27/2008 SALGUERO DO, LADONNA K 250.00 DIABETES MELLITUS 09/27/2008 SALGUERO DO, LADONNA K 401.1 ESSENTIAL HYPERTENSION BENIGN 09/27/2008 MADL PRECISION THREAD GRINDER OPERATOR, ETELVINA L 250.00 DIABETES MELLITUS 09/27/2008 MADL PRECISION THREAD GRINDER OPERATOR, ETELVINA L 401.1 ESSENTIAL HYPERTENSION BENIGN 09/27/2008 SALGUERO DO, LADONNA K 250.00 DIABETES MELLITUS 09/27/2008 SALGUERO DO, LADONNA K 401.1 ESSENTIAL HYPERTENSION BENIGN 09/27/2008 HAMMAD LEONARD APRNA L 250.00 DIABETES MELLITUS 09/27/2008 HAMMAD LEONARD APRNA L 401.1 ESSENTIAL HYPERTENSION BENIGN 11/01/2008 LAURIE MORA APRN S 719.46 Pain In Joint Involving Lower Leg 11/01/2008 719.46 Pain In Joint Involving Lower Leg 11/01/2008 LAURIE MORA APRN S 719.46 Pain In Joint Involving Lower Leg 11/01/2008 LAURIE MORA APRN S 719.46 Pain In Joint Involving Lower [...] In Joint Involving Lower Leg 11/01/2008 MADL PRECISION THREAD GRINDER OPERATOR, ETELVINA L 719.46 Pain In Joint Involving Lower Leg 11/01/2008 MADL PRECISION THREAD GRINDER OPERATOR, ETELVINA L 719.46 Pain In Joint Involving Lower Leg 11/01/2008 MADL PRECISION THREAD GRINDER OPERATOR, ETELVINA L 719.46 Pain In Joint Involving Lower Leg 11/01/2008 LADONNA SALGUERO DO K 719.46 Pain In Joint Involving Lower Leg 11/01/2008 NOEMY DOLADONNA K 719.46 Pain In Joint Involving Lower Leg 11/01/2008 MADL PRECISION THREAD GRINDER OPERATOR ETELVINA L 719.46 Pain In Joint Involving Lower Leg 11/01/2008 MADL PRECISION THREAD GRINDER OPERATOR, ETELVINA L 719.46 Pain In Joint Involving Lower Leg 11/01/2008 MADL PRECISION THREAD GRINDER OPERATOR, ETELVINA L 719.46 Pain In Joint Involving Lower Leg 11/01/2008 MADL PRECISION THREAD GRINDER OPERATOR, ETELVINA L 719.46 Pain In Joint Involving Lower Leg 11/01/2008 MADL PRECISION THREAD GRINDER OPERATOR ETELVINA L 719.46 Pain In Joint Involving Lower Leg 11/01/2008 MADL PRECISION THREAD GRINDER OPERATOR, ETELVINA L 719.46 Pain In Joint Involving Lower Leg 11/01/2008 MADL PRECISION THREAD GRINDER OPERATOR, ETELVINA L 719.46 Pain In Joint Involving Lower Leg 11/01/2008 LADONNA SALGUERO DO K 719.46 Pain In Joint Involving Lower Leg 11/01/2008 NOEMY DOLADONNA K 719.46 Pain In Joint Involving Lower Leg 11/01/2008 MADL PRECISION THREAD GRINDER OPERATOR, ETELVINA L 719.46 Pain In Joint Involving Lower Leg 11/01/2008 LADONNA SALGUERO DO K 719.46 Pain In Joint Involving Lower Leg 11/01/2008 MADL PRECISION THREAD GRINDER OPERATOR, ETELVINA L 719.46 Pain In Joint Involving Lower Leg 12/12/2008 LAURIE MORA APRN S 496 COPD 12/12/2008 LAURIE MORA APRN S 728.85 Spasm Of Muscle 12/12/2008 496 COPD 12/12/2008 728.85 Spasm Of Muscle 12/12/2008 LAURIE MOAR APRN S 496 COPD 12/12/2008 LAURIE MORA [...] OBSTRUCTIVE PULMONARY DISEASE 12/12/2008 LADONNA SALGUERO DO 728.85 Spasm Of Muscle 12/12/2008 BYRON BOSS [...] DOA K 728.85 Spasm Of Muscle 12/12/2008 SALGUERO [...] K 728.85 Spasm Of Muscle 12/12/2008 MADL PRECISION THREAD GRINDER OPERATOR, ETELVINA L 496 CHRONIC OBSTRUCTIVE PULMONARY DISEASE 12/12/2008 MADL PRECISION THREAD GRINDER OPERATOR, ETELVINA L 728.85 Spasm Of Muscle 12/12/2008 MADL PRECISION THREAD GRINDER OPERATOR, ETELVINA L 496 CHRONIC OBSTRUCTIVE PULMONARY DISEASE 12/12/2008 MADL PRECISION THREAD GRINDER OPERATOR, ETELVINA L 728.85 Spasm Of Muscle 12/12/2008 MADL PRECISION THREAD GRINDER OPERATOR, ETELVINA L 496 CHRONIC OBSTRUCTIVE PULMONARY DISEASE 12/12/2008 MADL PRECISION THREAD GRINDER OPERATOR, ETELVINA L 728.85 Spasm Of Muscle 12/12/2008 SALGUERO DO, LADONNA K 496 CHRONIC OBSTRUCTIVE PULMONARY DISEASE 12/12/2008 SALGUERO DO, LADONNA K 728.85 Spasm Of Muscle 12/12/2008 SALGUERO DO, LADONNA K 496 CHRONIC OBSTRUCTIVE PULMONARY DISEASE 12/12/2008 SALGUERO DO, LADONNA K 728.85 Spasm Of Muscle 12/12/2008 MADL PRECISION THREAD GRINDER OPERATOR, ETELVINA L 496 CHRONIC OBSTRUCTIVE PULMONARY DISEASE 12/12/2008 MADL PRECISION THREAD GRINDER OPERATOR, ETELVINA L 728.85 Spasm Of Muscle 12/12/2008 MADL PRECISION THREAD GRINDER OPERATOR, ETELVINA L 496 CHRONIC OBSTRUCTIVE PULMONARY DISEASE 12/12/2008 MADL PRECISION THREAD GRINDER OPERATOR, ETELVINA L 728.85 Spasm Of Muscle 12/12/2008 MADL PRECISION THREAD GRINDER OPERATOR, ETELVINA L 496 CHRONIC OBSTRUCTIVE PULMONARY DISEASE 12/12/2008 MADL PRECISION THREAD GRINDER OPERATOR, ETELVINA L 728.85 Spasm Of Muscle 12/12/2008 MADL PRECISION THREAD GRINDER OPERATOR, ETELVINA L 496 CHRONIC OBSTRUCTIVE PULMONARY DISEASE 12/12/2008 MADL PRECISION THREAD GRINDER OPERATOR, ETELVINA L 728.85 Spasm Of Muscle 12/12/2008 MADL PRECISION THREAD GRINDER OPERATOR, ETELVINA L 496 CHRONIC OBSTRUCTIVE PULMONARY DISEASE 12/12/2008 MADL PRECISION THREAD GRINDER OPERATOR, ETELVINA L 728.85 Spasm Of Muscle 12/12/2008 MADL PRECISION THREAD GRINDER OPERATOR, ETELVINA L 496 CHRONIC OBSTRUCTIVE PULMONARY DISEASE 12/12/2008 MADL PRECISION THREAD GRINDER OPERATOR, ETELVINA L 728.85 Spasm Of Muscle 12/12/2008 MADL PRECISION THREAD GRINDER OPERATOR, ETELVINA L 496 CHRONIC OBSTRUCTIVE PULMONARY DISEASE 12/12/2008 MADL PRECISION THREAD GRINDER OPERATOR, ETELVINA L 728.85 Spasm Of Muscle 12/12/2008 SALGUERO DO, LADONNA K 496 CHRONIC OBSTRUCTIVE PULMONARY DISEASE 12/12/2008 SALGUERO DO, LADONNA K 728.85 Spasm Of Muscle 12/12/2008 SALGUERO DO, LADONNA K 496 CHRONIC OBSTRUCTIVE PULMONARY DISEASE 12/12/2008 SALGUERO DO, LADONNA K 728.85 Spasm Of Muscle 12/12/2008 MADL PRECISION THREAD GRINDER OPERATOR, ETELVINA L 496 CHRONIC OBSTRUCTIVE PULMONARY DISEASE 12/12/2008 MADL PRECISION THREAD GRINDER OPERATOR, ETELVINA L 728.85 Spasm Of Muscle 12/12/2008 SALGUERO DO, LADONNA K 496 CHRONIC OBSTRUCTIVE PULMONARY DISEASE 12/12/2008 SALGUERO DO, LADONNA K 728.85 Spasm Of Muscle 12/12/2008 MADL PRECISION THREAD GRINDER OPERATOR, ETELVINA L 496 CHRONIC OBSTRUCTIVE PULMONARY DISEASE 12/12/2008 MADL PRECISION THREAD GRINDER OPERATOR, ETELVINA L 728.85 Spasm Of Muscle [...] 786.50 Chest Pain Or Discomfort 01/11/2009 MADL PRECISION THREAD GRINDER OPERATOR, ETELVINA L 786.50 Chest Pain Or Discomfort 01/11/2009 MADL PRECISION THREAD GRINDER OPERATOR, ETELVINA L 786.50 Chest Pain Or Discomfort 01/11/2009 MADL PRECISION THREAD GRINDER OPERATOR, ETELVINA L 786.50 Chest Pain Or Discomfort 01/11/2009 SALGUERO DO, LADONNA K 786.50 Chest Pain Or Discomfort 01/11/2009 SALGUERO DO, LADONNA K 786.50 Chest Pain Or Discomfort 01/11/2009 MADL PRECISION THREAD GRINDER OPERATOR, ETELVINA L 786.50 Chest Pain Or Discomfort 01/11/2009 MADL PRECISION THREAD GRINDER OPERATOR, ETELVINA L 786.50 Chest Pain Or Discomfort 01/11/2009 MADL PRECISION THREAD GRINDER OPERATOR, ETELVINA L 786.50 Chest Pain Or Discomfort 01/11/2009 MADL PRECISION THREAD GRINDER OPERATOR, ETELVINA L 786.50 Chest Pain Or Discomfort 01/11/2009 MADL PRECISION THREAD GRINDER OPERATOR, ETELVINA L 786.50 Chest Pain Or Discomfort 01/11/2009 MADL PRECISION THREAD GRINDER OPERATOR, ETELVINA L 786.50 Chest Pain Or Discomfort 01/11/2009 MADL PRECISION THREAD GRINDER OPERATOR, ETELVINA L 786.50 Chest Pain Or Discomfort 01/11/2009 SALGUERO DO, LADONNA K 786.50 Chest Pain Or Discomfort 01/11/2009 SALGUERO DO, LADONNA K 786.50 Chest Pain Or Discomfort 01/11/2009 MADL PRECISION THREAD GRINDER OPERATOR, ETELVINA L 786.50 Chest Pain Or Discomfort 01/11/2009 SALGUERO DO, LADONNA K 786.50 Chest Pain Or Discomfort 01/11/2009 MADL PRECISION THREAD GRINDER OPERATOR, ETELVINA L 786.50 Chest Pain Or Discomfort 02/20/2009 MORGAN PRECISION THREAD GRINDER OPERATOR, LAURIE S 709.9 Dermatology - Skin Condition 02/20/2009 709.9 Dermatology - Skin Condition 02/20/2009 MORGAN PRECISION THREAD GRINDER OPERATOR, LAURIE S 709.9 Dermatology - Skin Condition 02/20/2009 MORGAN PRECISION THREAD GRINDER OPERATOR, LAURIE S 709.9 Dermatology - Skin [...] 709.9 Dermatology - Skin Condition 02/20/2009 MADL PRECISION THREAD GRINDER OPERATOR, ETELVINA L 709.9 Dermatology - Skin Condition 02/20/2009 MADL PRECISION THREAD GRINDER OPERATOR, ETELVINA L 709.9 Dermatology - Skin Condition 02/20/2009 MADL PRECISION THREAD GRINDER OPERATOR, ETELVINA L 709.9 Dermatology - Skin Condition 02/20/2009 SALGUERO DO, LADONNA K 709.9 Dermatology - Skin Condition 02/20/2009 SALGUERO DO, LADONNA K 709.9 Dermatology - Skin Condition 02/20/2009 MADL PRECISION THREAD GRINDER OPERATOR, ETELVINA L 709.9 Dermatology - Skin Condition 02/20/2009 MADL PRECISION THREAD GRINDER OPERATOR, ETELVINA L 709.9 Dermatology - Skin Condition 02/20/2009 MADL PRECISION THREAD GRINDER OPERATOR, ETELVINA L 709.9 Dermatology - Skin Condition 02/20/2009 MADL PRECISION THREAD GRINDER OPERATOR, ETELVINA L 709.9 Dermatology - Skin Condition 02/20/2009 MADL PRECISION THREAD GRINDER OPERATOR, ETELVINA L 709.9 Dermatology - Skin Condition 02/20/2009 MADL PRECISION THREAD GRINDER OPERATOR, ETELVINA L 709.9 Dermatology - Skin Condition 02/20/2009 MADL PRECISION THREAD GRINDER OPERATOR, ETELVINA L 709.9 Dermatology - Skin Condition 02/20/2009 SALGUERO DO, LADONNA K 709.9 Dermatology - Skin Condition 02/20/2009 SALGUERO DO, LADONNA K 709.9 Dermatology - Skin Condition 02/20/2009 MADL PRECISION THREAD GRINDER OPERATOR, ETELVINA L 709.9 Dermatology - Skin Condition 02/20/2009 SALGUERO DO, LADONNA K 709.9 Dermatology - Skin Condition 02/20/2009 MADL PRECISION THREAD GRINDER OPERATOR, ETELVINA L 709.9 Dermatology - Skin [...] Specified Disorders Of Function Of Stomach 04/05/2009 ROMELIA FISCHER MD 536.8 Dyspepsia And Other Specified Disorders [...] Disorders Of Function Of Stomach 04/05/2009 MADL PRECISION THREAD GRINDER OPERATOR, ETELVINA L 536.8 Dyspepsia And Other Specified Disorders Of Function Of Stomach 04/05/2009 MADL PRECISION THREAD GRINDER OPERATOR, ETELVINA L 536.8 Dyspepsia And Other Specified Disorders Of Function Of Stomach 04/05/2009 MADL PRECISION THREAD GRINDER OPERATOR, ETELVINA L 536.8 Dyspepsia And Other Specified Disorders Of Function Of Stomach 04/05/2009 SALGUERO DO, LADONNA K 536.8 Dyspepsia And Other Specified Disorders Of Function Of Stomach 04/05/2009 SALGUERO DO, LADONNA K 536.8 Dyspepsia And Other Specified Disorders Of Function Of Stomach 04/05/2009 MADL PRECISION THREAD GRINDER OPERATOR, ETELVINA L 536.8 Dyspepsia And Other Specified Disorders Of Function Of Stomach 04/05/2009 MADL PRECISION THREAD GRINDER OPERATOR, ETELVINA L 536.8 Dyspepsia And Other Specified Disorders Of Function Of Stomach 04/05/2009 MADL PRECISION THREAD GRINDER OPERATOR, ETELVINA L 536.8 Dyspepsia And Other Specified Disorders Of Function Of Stomach 04/05/2009 MADL PRECISION THREAD GRINDER OPERATOR, ETELVINA L 536.8 Dyspepsia And Other Specified Disorders Of Function Of Stomach 04/05/2009 MADL PRECISION THREAD GRINDER OPERATOR, ETELVINA L 536.8 Dyspepsia And Other Specified Disorders Of Function Of Stomach 04/05/2009 MADL PRECISION THREAD GRINDER OPERATOR, ETELVINA L 536.8 Dyspepsia And Other Specified Disorders Of Function Of Stomach 04/05/2009 MADL PRECISION THREAD GRINDER OPERATOR, ETELVINA L 536.8 Dyspepsia And Other Specified Disorders Of Function Of Stomach 04/05/2009 SALGUERO DO, LADONNA K 536.8 Dyspepsia And Other Specified Disorders Of Function Of Stomach 04/05/2009 SALGUERO DO, LADONNA K 536.8 Dyspepsia And Other Specified Disorders Of Function Of Stomach 04/05/2009 MADL PRECISION THREAD GRINDER OPERATOR, ETELVINA L 536.8 Dyspepsia And Other Specified Disorders Of Function Of Stomach 04/05/2009 SALGUERO DO, LADONNA K 536.8 Dyspepsia And Other Specified Disorders Of Function Of Stomach 04/05/2009 MADL PRECISION THREAD GRINDER OPERATOR, ETELVINA L 536.8 Dyspepsia And Other Specified Disorders Of Function Of Stomach 05/09/2009 PALOMA MORA APRNNDA S 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52 Organic Sleep- related Leg Cramps 05/09/2009 787.02 Nausea 05/09/2009 327.52 Organic Sleep- related Leg Cramps 05/09/2009 787.02 Nausea 05/09/2009 327.52 Organic Sleep- related Leg Cramps 05/09/2009 787.02 Nausea 05/09/2009 327.52 Organic Sleep- related Leg Cramps 05/09/2009 787.02 Nausea 05/09/2009 BYRON BOSS MD 327.52 Organic Sleep-related Leg Cramps 05/09/2009 BYRON BOSS MD 787.02 Nausea 05/09/2009 BYRON BOSS MD 327.52 Organic Sleep-related Leg Cramps 05/09/2009 BYRON BOSS MD 787.02 Nausea 05/09/2009 TERE SALGUERO DOA K 327.52 Organic Sleep-related Leg Cramps 05/09/2009 SALGUERO DO LADONNA K 787.02 Nausea 05/09/2009 BYRON BOSS MD 327.52 Organic Sleep-related Leg Cramps 05/09/2009 BYRON BOSS MD 787.02 Nausea 05/09/2009 SALGUERO DOTEREA K 327.52 Organic Sleep-related Leg Cramps 05/09/2009 SALGUERO DOTEREA K 787.02 Nausea 05/09/2009 BYRON BOSS MD 327.52 Organic Sleep-related Leg Cramps 05/09/2009 BYRON BOSS MD 787.02 Nausea 05/09/2009 BYRON BOSS MD 327.52 Organic Sleep-related Leg Cramps 05/09/2009 BYRON BOSS MD 787.02 Nausea 05/09/2009 SALGUERO DO, LADONNA K 327.52 Organic Sleep-related Leg Cramps 05/09/2009 SALGUERO DO, LADONNA K 787.02 Nausea 05/09/2009 SALGUERO DO LADONNA K 327.52 Organic Sleep-related Leg Cramps 05/09/2009 SALGUERO DO, LADONNA K 787.02 Nausea 05/09/2009 SALGUERO DO, LADONNA K 327.52 Organic Sleep-related Leg Cramps 05/09/2009 SALGUERO DO, LADONNA K 787.02 Nausea 05/09/2009 SALGUERO DO, LADONNA K 327.52 Organic Sleep-related Leg Cramps 05/09/2009 SALGUERO DO, LADONNA K 787.02 Nausea 05/09/2009 MADL PRECISION THREAD GRINDER OPERATOR, ETELVINA L 327.52 Organic Sleep-related Leg Cramps 05/09/2009 MADL PRECISION THREAD GRINDER OPERATOR, ETELVINA L 787.02 Nausea 05/09/2009 MADL PRECISION THREAD GRINDER OPERATOR, ETELVINA L 327.52 Organic Sleep-related Leg Cramps 05/09/2009 MADL PRECISION THREAD GRINDER OPERATOR, ETELVINA L 787.02 Nausea 05/09/2009 MADL PRECISION THREAD GRINDER OPERATOR, ETELVINA L 327.52 Organic Sleep-related Leg Cramps 05/09/2009 MADL PRECISION THREAD GRINDER OPERATOR, ETELVINA L 787.02 Nausea 05/09/2009 SALGUERO DO, LADONNA K 327.52 Organic Sleep-related Leg Cramps 05/09/2009 SALGUERO DO, LADONNA K 787.02 Nausea 05/09/2009 SALGUERO DO, LADONNA K 327.52 Organic Sleep-related Leg Cramps 05/09/2009 SALGUERO DO, LADONNA K 787.02 Nausea 05/09/2009 MADL PRECISION THREAD GRINDER OPERATOR, ETELVINA L 327.52 Organic Sleep-related Leg Cramps 05/09/2009 MADL PRECISION THREAD GRINDER OPERATOR, ETELVINA L 787.02 Nausea 05/09/2009 MADL PRECISION THREAD GRINDER OPERATOR, ETELVINA L 327.52 Organic Sleep-related Leg Cramps 05/09/2009 MADL PRECISION THREAD GRINDER OPERATOR, ETELVINA L 787.02 Nausea 05/09/2009 MADL PRECISION THREAD GRINDER OPERATOR, ETELVINA L 327.52 Organic Sleep-related Leg Cramps 05/09/2009 MADL PRECISION THREAD GRINDER OPERATOR, ETELVINA L 787.02 Nausea 05/09/2009 MADL PRECISION THREAD GRINDER OPERATOR, ETELVINA L 327.52 Organic Sleep-related Leg Cramps 05/09/2009 MADL PRECISION THREAD GRINDER OPERATOR, ETELVINA L 787.02 Nausea 05/09/2009 MADL PRECISION THREAD GRINDER OPERATOR, ETELVINA L 327.52 Organic Sleep-related Leg Cramps 05/09/2009 MADL PRECISION THREAD GRINDER OPERATOR, ETELVINA L 787.02 Nausea 05/09/2009 MADL PRECISION THREAD GRINDER OPERATOR, ETELVINA L 327.52 Organic Sleep-related Leg Cramps 05/09/2009 MADL PRECISION THREAD GRINDER OPERATOR, ETELVINA L 787.02 Nausea 05/09/2009 MADL PRECISION THREAD GRINDER OPERATOR, ETELVINA L 327.52 Organic Sleep-related Leg Cramps 05/09/2009 MADL PRECISION THREAD GRINDER OPERATOR, ETELVINA L 787.02 Nausea 05/09/2009 SALGUERO DO, LADONNA K 327.52 Organic Sleep-related Leg Cramps 05/09/2009 SALGUERO DO, LADONNA K 787.02 Nausea 05/09/2009 SALGUERO DO, LADONNA K 327.52 Organic Sleep-related Leg Cramps 05/09/2009 SALGUERO DO, LADONNA K 787.02 Nausea 05/09/2009 MADL PRECISION THREAD GRINDER OPERATOR, ETELVINA L 327.52 Organic Sleep-related Leg Cramps 05/09/2009 MADL PRECISION THREAD GRINDER OPERATOR, ETELVINA L 787.02 Nausea 05/09/2009 SALGUERO DO, LADONNA K 327.52 Organic Sleep-related Leg Cramps 05/09/2009 SALGUERO DO, LADONNA K 787.02 Nausea 05/09/2009 MADL PRECISION THREAD GRINDER OPERATOR, ETELVINA L 327.52 Organic Sleep-related Leg Cramps 05/09/2009 MADL PRECISION THREAD GRINDER OPERATOR, ETELVINA L 787.02 Nausea 07/02/2009 LAURIE MORA APRN S 465.9 Acute Upper Respiratory Infections Of Unspecified Site 07/02/2009 SUSHANT MORA APRNA S 780.4 Dizziness And Giddiness 07/02/2009 465.9 Acute Upper Respiratory Infections Of Unspecified Site 07/02/2009 780.4 Dizziness And Giddiness 07/02/2009 PALOMA MORA APRNNDA S 465.9 Acute Upper Respiratory Infections Of Unspecified Site 07/02/2009 PALOMA MORA APRNNDA S 780.4 Dizziness And Giddiness 07/02/2009 PALOMA MORA APRNNDA S 465.9 Acute Upper Respiratory Infections Of Unspecified Site 07/02/2009 MORGAN PRECISION THREAD GRINDER OPERATOR, LAURIE S 780.4 Dizziness And Giddiness 07/02/2009 ROMELIA FISCHER [...] BOSS MD 780.4 Dizziness And Giddiness 07/02/2009 NOEMY DO LADONNA K 465.9 Acute Upper Respiratory Infections Of Unspecified Site 07/02/2009 SALGUERO DO LADONNA K 780.4 Dizziness And Giddiness 07/02/2009 BYRON BOSS MD 465.9 Acute Upper Respiratory Infections Of Unspecified Site 07/02/2009 BYRON BOSS MD 780.4 Dizziness And Giddiness 07/02/2009 SALGUERO DO, [...] MD 780.4 Dizziness And Giddiness 07/02/2009 SALGUERO DO, [...] K 780.4 Dizziness And Giddiness 07/02/2009 MADL PRECISION THREAD GRINDER OPERATOR, ETELVINA L 465.9 Acute Upper Respiratory Infections Of Unspecified Site 07/02/2009 MADL PRECISION THREAD GRINDER OPERATOR, ETELVINA L 780.4 Dizziness And Giddiness 07/02/2009 MADL PRECISION THREAD GRINDER OPERATOR, ETELVINA L 465.9 Acute Upper Respiratory Infections Of Unspecified Site 07/02/2009 MADL PRECISION THREAD GRINDER OPERATOR, ETELVINA L 780.4 Dizziness And Giddiness 07/02/2009 MADL PRECISION THREAD GRINDER OPERATOR, ETELVINA L 465.9 Acute Upper Respiratory Infections Of Unspecified Site 07/02/2009 MADL PRECISION THREAD GRINDER OPERATOR, ETELVINA L 780.4 Dizziness And Giddiness 07/02/2009 SALGUERO DO, LADONNA K 465.9 Acute Upper Respiratory Infections Of Unspecified Site 07/02/2009 SALGUERO DO, LADONNA K 780.4 Dizziness And Giddiness 07/02/2009 SALGUERO DO, LADONNA K 465.9 Acute Upper Respiratory Infections Of Unspecified Site 07/02/2009 SALGUERO DO, LADONNA K 780.4 Dizziness And Giddiness 07/02/2009 MADL PRECISION THREAD GRINDER OPERATOR, ETELVINA L 465.9 Acute Upper Respiratory Infections Of Unspecified Site 07/02/2009 MADL PRECISION THREAD GRINDER OPERATOR, ETELVINA L 780.4 Dizziness And Giddiness 07/02/2009 MADL PRECISION THREAD GRINDER OPERATOR, ETELVINA L 465.9 Acute Upper Respiratory Infections Of Unspecified Site 07/02/2009 MADL PRECISION THREAD GRINDER OPERATOR, ETELVINA L 780.4 Dizziness And Giddiness 07/02/2009 MADL PRECISION THREAD GRINDER OPERATOR, ETELVINA L 465.9 Acute Upper Respiratory Infections Of Unspecified Site 07/02/2009 MADL PRECISION THREAD GRINDER OPERATOR, ETELVINA L 780.4 Dizziness And Giddiness 07/02/2009 MADL PRECISION THREAD GRINDER OPERATOR, ETELVINA L 465.9 Acute Upper Respiratory Infections Of Unspecified Site 07/02/2009 MADL PRECISION THREAD GRINDER OPERATOR, ETELVINA L 780.4 Dizziness And Giddiness 07/02/2009 MADL PRECISION THREAD GRINDER OPERATOR, ETELVINA L 465.9 Acute Upper Respiratory Infections Of Unspecified Site 07/02/2009 MADL PRECISION THREAD GRINDER OPERATOR, ETELVINA L 780.4 Dizziness And Giddiness 07/02/2009 MADL PRECISION THREAD GRINDER OPERATOR, ETELVINA L 465.9 Acute Upper Respiratory Infections Of Unspecified Site 07/02/2009 MADL PRECISION THREAD GRINDER OPERATOR, ETELVINA L 780.4 Dizziness And Giddiness 07/02/2009 MADL PRECISION THREAD GRINDER OPERATOR, ETELVINA L 465.9 Acute Upper Respiratory Infections Of Unspecified Site 07/02/2009 MADL PRECISION THREAD GRINDER OPERATOR, ETELVINA L 780.4 Dizziness And Giddiness 07/02/2009 SALGUERO DO, LADONNA K 465.9 Acute Upper Respiratory Infections Of Unspecified Site 07/02/2009 SALGUERO DO, LADONNA K 780.4 Dizziness And Giddiness 07/02/2009 SALGUERO DO, LADONNA K 465.9 Acute Upper Respiratory Infections Of Unspecified Site 07/02/2009 SALGUERO DO, LADONNA K 780.4 Dizziness And Giddiness 07/02/2009 MADL PRECISION THREAD GRINDER OPERATOR, ETELVINA L 465.9 Acute Upper Respiratory Infections Of Unspecified Site 07/02/2009 MADL PRECISION THREAD GRINDER OPERATOR, ETELVINA L 780.4 Dizziness And Giddiness 07/02/2009 SALGUERO DO, LADONNA K 465.9 Acute Upper Respiratory Infections Of Unspecified Site 07/02/2009 SALGUERO DO, LADONNA K 780.4 Dizziness And Giddiness 07/02/2009 MADL PRECISION THREAD GRINDER OPERATOR, ETELVINA L 465.9 Acute Upper Respiratory Infections Of Unspecified Site 07/02/2009 MADL PRECISION THREAD GRINDER OPERATOR, ETELVINA L 780.4 Dizziness And Giddiness 08/10/2009 MORGANLAURIE GUADARRAMA APRN S 780.52 INSOMNIA UNSPECIFIED 08/10/2009 MORGAN PRECISION THREAD GRINDER OPERATOR, LAURIE S 783.1 Abnormal Weight Gain 08/10/2009 780.52 Insomnia Unspecified 08/10/2009 783.1 Abnormal Weight Gain 08/10/2009 MORGAN HARRIS LAURIE S 780.52 Insomnia Unspecified 08/10/2009 MORGAN PRECISION THREAD GRINDER OPERATOR, LAURIE S 783.1 Abnormal Weight Gain 08/10/2009 MORGAN HARRIS LAURIE S 780.52 Insomnia Unspecified 08/10/2009 MORGAN HARRIS, LAURIE S 783.1 Abnormal Weight Gain 08/10/2009 [...] K 783.1 Abnormal Weight Gain 08/10/2009 MADL PRECISION THREAD GRINDER OPERATOR, ETELVINA L 780.52 Insomnia Unspecified 08/10/2009 MADL PRECISION THREAD GRINDER OPERATOR, ETELVINA L 783.1 Abnormal Weight Gain 08/10/2009 MADL PRECISION THREAD GRINDER OPERATOR, ETELVINA L 780.52 Insomnia Unspecified 08/10/2009 MADL PRECISION THREAD GRINDER OPERATOR, ETELVINA L 783.1 Abnormal Weight Gain 08/10/2009 MADL PRECISION THREAD GRINDER OPERATOR, ETELVINA L 780.52 Insomnia Unspecified 08/10/2009 MADL PRECISION THREAD GRINDER OPERATOR, ETELVINA L 783.1 Abnormal Weight Gain 08/10/2009 SALGUERO DO, LADONNA K 780.52 Insomnia Unspecified 08/10/2009 SALGUERO DO, LADONNA K 783.1 Abnormal Weight Gain 08/10/2009 SALGUERO DO, LADONNA K 780.52 Insomnia Unspecified 08/10/2009 SALGUERO DO, LADONNA K 783.1 Abnormal Weight Gain 08/10/2009 MADL PRECISION THREAD GRINDER OPERATOR, ETELVINA L 780.52 Insomnia Unspecified 08/10/2009 MADL PRECISION THREAD GRINDER OPERATOR, ETELVINA L 783.1 Abnormal Weight Gain 08/10/2009 MADL PRECISION THREAD GRINDER OPERATOR, ETELVINA L 780.52 Insomnia Unspecified 08/10/2009 MADL PRECISION THREAD GRINDER OPERATOR, ETELVINA L 783.1 Abnormal Weight Gain 08/10/2009 MADL PRECISION THREAD GRINDER OPERATOR, ETELVINA L 780.52 Insomnia Unspecified 08/10/2009 MADL PRECISION THREAD GRINDER OPERATOR, ETELVINA L 783.1 Abnormal Weight Gain 08/10/2009 MADL PRECISION THREAD GRINDER OPERATOR, ETELVINA L 780.52 Insomnia Unspecified 08/10/2009 MADL PRECISION THREAD GRINDER OPERATOR, ETELVINA L 783.1 Abnormal Weight Gain 08/10/2009 MADL PRECISION THREAD GRINDER OPERATOR, ETELVINA L 780.52 Insomnia Unspecified 08/10/2009 MADL PRECISION THREAD GRINDER OPERATOR, ETELVINA L 783.1 Abnormal Weight Gain 08/10/2009 MADL PRECISION THREAD GRINDER OPERATOR, ETELVINA L 780.52 Insomnia Unspecified 08/10/2009 MADL PRECISION THREAD GRINDER OPERATOR, ETELVINA L 783.1 Abnormal Weight Gain 08/10/2009 MADL PRECISION THREAD GRINDER OPERATOR, ETELVINA L 780.52 Insomnia Unspecified 08/10/2009 MADL PRECISION THREAD GRINDER OPERATOR, ETELVINA L 783.1 Abnormal Weight Gain 08/10/2009 SALGUERO DO, LADONNA K 780.52 Insomnia Unspecified 08/10/2009 SALGUERO DO, LADONNA K 783.1 Abnormal Weight Gain 08/10/2009 SALGUERO DO, LADONNA K 780.52 Insomnia Unspecified 08/10/2009 SALGUERO DO, LADONNA K 783.1 Abnormal Weight Gain 08/10/2009 MADL PRECISION THREAD GRINDER OPERATOR, ETELVINA L 780.52 Insomnia Unspecified 08/10/2009 MADL PRECISION THREAD GRINDER OPERATOR, ETELVINA L 783.1 Abnormal Weight Gain 08/10/2009 SALGUERO DO, LADONNA K 780.52 Insomnia Unspecified 08/10/2009 SALGUERO DO, LADONNA K 783.1 Abnormal Weight Gain 08/10/2009 MADL PRECISION THREAD GRINDER OPERATOR, ETELVINA L 780.52 Insomnia Unspecified 08/10/2009 MADL PRECISION THREAD GRINDER OPERATOR, ETELVINA L 783.1 Abnormal Weight Gain 09/04/2009 MORGAN HARRIS LAURIE S 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 09/04/2009 MORGAN HARRIS LAURIE S 780.79 Feelings Of Weakness 09/04/2009 MORGAN HARRIS LAURIE S 786.05 shortness of breath 09/04/2009 PALOMA MORA APRNNDA S 786.2 Cough 09/04/2009 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 09/04/2009 780.79 Feelings Of Weakness 09/04/2009 786.05 Shortness Of Breath 09/04/2009 786.2 Cough 09/04/2009 MORGAN PRECISION THREAD GRINDER OPERATOR, LAURIE S 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 09/04/2009 MORGAN PRECISION THREAD GRINDER OPERATOR, LAURIE S 780.79 Feelings Of Weakness 09/04/2009 MORGAN PRECISION THREAD GRINDER OPERATOR, LAURIE S 786.05 Shortness Of Breath 09/04/2009 MORGAN PRECISION THREAD GRINDER OPERATOR LAURIE S 786.2 Cough 09/04/2009 MORGAN PRECISION THREAD GRINDER OPERATOR, LAURIE S 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 09/04/2009 MORGAN PRECISION THREAD GRINDER OPERATOR, LAURIE S 780.79 Feelings Of Weakness 09/04/2009 MORGAN PRECISION THREAD GRINDER OPERATOR, LAURIE S 786.05 Shortness Of Breath 09/04/2009 PALOMA [...] BOSS MD 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 09/04/2009 BRYON BOSS MD 780.79 Feelings Of Weakness 09/04/2009 [...] BOSS MD 786.05 Shortness Of Breath 09/04/2009 RAJESH BOSS MDISTINA M 786.2 Cough 09/04/2009 SALGUERO DO, LADONNA K [...] DO, LADONNA K 786.2 Cough 09/04/2009 MADL PRECISION THREAD GRINDER OPERATOR, ETELVINA L 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 09/04/2009 MADL PRECISION THREAD GRINDER OPERATOR, ETELVINA L 780.79 Feelings Of Weakness 09/04/2009 MADL PRECISION THREAD GRINDER OPERATOR, ETELVINA L 786.05 Shortness Of Breath 09/04/2009 MADL PRECISION THREAD GRINDER OPERATOR, ETELVINA L 786.2 Cough 09/04/2009 MADL PRECISION THREAD GRINDER OPERATOR, ETELVINA L 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 09/04/2009 MADL PRECISION THREAD GRINDER OPERATOR, ETELVINA L 780.79 Feelings Of Weakness 09/04/2009 MADL PRECISION THREAD GRINDER OPERATOR, ETELVINA L 786.05 Shortness Of Breath 09/04/2009 MADL PRECISION THREAD GRINDER OPERATOR, ETELVINA L 786.2 Cough 09/04/2009 MADL PRECISION THREAD GRINDER OPERATOR, ETELVINA L 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 09/04/2009 MADL PRECISION THREAD GRINDER OPERATOR, ETELVINA L 780.79 Feelings Of Weakness 09/04/2009 MADL PRECISION THREAD GRINDER OPERATOR, ETELVINA L 786.05 Shortness Of Breath 09/04/2009 MADL PRECISION THREAD GRINDER OPERATOR, ETELVINA L 786.2 Cough 09/04/2009 SALGUERO [...] DO, LADONNA K 786.2 Cough 09/04/2009 MADL PRECISION THREAD GRINDER OPERATOR, ETELVINA L 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 09/04/2009 MADL PRECISION THREAD GRINDER OPERATOR, ETELVINA L 780.79 Feelings Of Weakness 09/04/2009 MADL PRECISION THREAD GRINDER OPERATOR, ETELVINA L 786.05 Shortness Of Breath 09/04/2009 MADL PRECISION THREAD GRINDER OPERATOR, ETELVINA L 786.2 Cough 09/04/2009 MADL PRECISION THREAD GRINDER OPERATOR, ETELVINA L 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 09/04/2009 MADL PRECISION THREAD GRINDER OPERATOR, ETELVINA L 780.79 Feelings Of Weakness 09/04/2009 MADL PRECISION THREAD GRINDER OPERATOR, ETELVINA L 786.05 Shortness Of Breath 09/04/2009 MADL PRECISION THREAD GRINDER OPERATOR, ETELVINA L 786.2 Cough 09/04/2009 MADL PRECISION THREAD GRINDER OPERATOR, ETELVINA L 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 09/04/2009 MADL PRECISION THREAD GRINDER OPERATOR, ETELVINA L 780.79 Feelings Of Weakness 09/04/2009 MADL PRECISION THREAD GRINDER OPERATOR, ETELVINA L 786.05 Shortness Of Breath 09/04/2009 MADL PRECISION THREAD GRINDER OPERATOR, ETELVINA L 786.2 Cough 09/04/2009 MADL PRECISION THREAD GRINDER OPERATOR, ETELVINA L 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 09/04/2009 MADL PRECISION THREAD GRINDER OPERATOR, ETELVINA L 780.79 Feelings Of Weakness 09/04/2009 MADL PRECISION THREAD GRINDER OPERATOR, ETELVINA L 786.05 Shortness Of Breath 09/04/2009 MADL PRECISION THREAD GRINDER OPERATOR, ETELVINA L 786.2 Cough 09/04/2009 MADL PRECISION THREAD GRINDER OPERATOR, ETELVINA L 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 09/04/2009 MADL PRECISION THREAD GRINDER OPERATOR, ETELVINA L 780.79 Feelings Of Weakness 09/04/2009 MADL PRECISION THREAD GRINDER OPERATOR, ETELVINA L 786.05 Shortness Of Breath 09/04/2009 MADL PRECISION THREAD GRINDER OPERATOR, ETELVINA L 786.2 Cough 09/04/2009 MADL PRECISION THREAD GRINDER OPERATOR, ETELVINA L 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 09/04/2009 MADL PRECISION THREAD GRINDER OPERATOR, ETELVINA L 780.79 Feelings Of Weakness 09/04/2009 MADL PRECISION THREAD GRINDER OPERATOR, ETELVINA L 786.05 Shortness Of Breath 09/04/2009 MADL PRECISION THREAD GRINDER OPERATOR, ETELVINA L 786.2 Cough 09/04/2009 MADL PRECISION THREAD GRINDER OPERATOR, ETELVINA L 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 09/04/2009 MADL PRECISION THREAD GRINDER OPERATOR, ETELVINA L 780.79 Feelings Of Weakness 09/04/2009 MADL PRECISION THREAD GRINDER OPERATOR, ETELVINA L 786.05 Shortness Of Breath 09/04/2009 MADL PRECISION THREAD GRINDER OPERATOR, ETELVINA L 786.2 Cough 09/04/2009 SALGUERO [...] DO, LADONNA K 786.2 Cough 09/04/2009 MADL PRECISION THREAD GRINDER OPERATOR, ETELVINA L 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 09/04/2009 MADL PRECISION THREAD GRINDER OPERATOR, ETELVINA L 780.79 Feelings Of Weakness 09/04/2009 MADL PRECISION THREAD GRINDER OPERATOR, ETELVINA L 786.05 Shortness Of Breath 09/04/2009 MADL PRECISION THREAD GRINDER OPERATOR, ETELVINA L 786.2 Cough 09/04/2009 SALGUERO DO, LADONNA K 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 09/04/2009 SALGUERO DO LADONNA K 780.79 Feelings Of Weakness 09/04/2009 SALGUERO DO, LADONNA K 786.05 Shortness Of Breath 09/04/2009 SALGUERO DO LADONNA K 786.2 Cough 09/04/2009 MADL PRECISION THREAD GRINDER OPERATORHAMMAD BowserA L 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 09/04/2009 MADL PRECISION THREAD GRINDER OPERATORSARAETELVINA L 780.79 Feelings Of Weakness 09/04/2009 MADL PRECISION THREAD GRINDER OPERATOR, ETELVINA L 786.05 Shortness Of Breath 09/04/2009 MADL PRECISION THREAD GRINDER OPERATOR, ETELVINA L 786.2 Cough 09/07/2009 MORGAN PRECISION THREAD GRINDER OPERATOR, LAURIE S 079.99 Viral Syndrome 09/07/2009 079.99 Viral Syndrome 09/07/2009 MORGAN HARRIS LAURIE S 079.99 Viral Syndrome 09/07/2009 MORGAN PRECISION THREAD GRINDER OPERATOR, LAURIE S 079.99 Viral Syndrome 09/07/2009 AMADO OLVERA, ROMELIA 079.99 Viral Syndrome 09/07/2009 BYRON BOSS MD [...] BOSS MD 079.99 Viral Syndrome 09/07/2009 SALGUERO TERE PRAKASHA K 079.99 Viral Syndrome 09/07/2009 SALGUERO DO LADONNA K 079.99 Viral Syndrome 09/07/2009 SALGUERO DO LADONNA K 079.99 Viral Syndrome 09/07/2009 SALGUERO DO LADONNA K 079.99 Viral Syndrome 09/07/2009 MADL PRECISION THREAD GRINDER OPERATORHAMMAD BowserA L 079.99 Viral Syndrome 09/07/2009 MADL PRECISION THREAD GRINDER OPERATOR, ETELVINA L 079.99 Viral Syndrome 09/07/2009 MADL PRECISION THREAD GRINDER OPERATOR, ETELVINA L 079.99 Viral Syndrome 09/07/2009 SALGUERO DO, LADONNA K 079.99 Viral Syndrome 09/07/2009 SALGUERO DO, LADONNA K 079.99 Viral Syndrome 09/07/2009 MADL PRECISION THREAD GRINDER OPERATOR, ETELVINA L 079.99 Viral Syndrome 09/07/2009 MADL PRECISION THREAD GRINDER OPERATOR, ETELVINA L 079.99 Viral Syndrome 09/07/2009 MADL PRECISION THREAD GRINDER OPERATOR, ETELVINA L 079.99 Viral Syndrome 09/07/2009 MADL PRECISION THREAD GRINDER OPERATOR, ETELVINA L 079.99 Viral Syndrome 09/07/2009 MADL PRECISION THREAD GRINDER OPERATOR, ETELVINA L 079.99 Viral Syndrome 09/07/2009 MADL PRECISION THREAD GRINDER OPERATOR, ETELVINA L 079.99 Viral Syndrome 09/07/2009 MADL PRECISION THREAD GRINDER OPERATOR, ETELVINA L 079.99 Viral Syndrome 09/07/2009 SALGUERO DO, LADONNA K 079.99 Viral Syndrome 09/07/2009 SALGUERO DO, LADONNA K 079.99 Viral Syndrome 09/07/2009 MADL PRECISION THREAD GRINDER OPERATOR, ETELVINA L 079.99 Viral Syndrome 09/07/2009 SALGUERO DO, LADONNA K 079.99 Viral Syndrome 09/07/2009 MADL PRECISION THREAD GRINDER OPERATOR, ETELVINA L 079.99 Viral Syndrome 10/12/2009 LAURIE MORA APRN S 719.58 Stiffness Of Joint, Not Elsewhere Classified, Other Specified Sites 10/12/2009 SUSHANT MORA APRNA S 799.02 Hypoxemia 10/12/2009 719.58 Stiffness Of Joint, Not Elsewhere Classified, Other Specified Sites 10/12/2009 799.02 Hypoxemia 10/12/2009 SUSHANT MORA APRNA S 719.58 Stiffness Of Joint, Not Elsewhere Classified, Other Specified Sites 10/12/2009 PALOMA MORA APRNNDA S 799.02 Hypoxemia 10/12/2009 SUSHANT MORA APRNA S 719.58 Stiffness Of Joint, Not Elsewhere Classified, Other Specified Sites 10/12/2009 SUSHANT MORA APRNA S 799.02 Hypoxemia 10/12/2009 ROMELIA FISCHER MD 719.58 [...] Not Elsewhere Classified, Other Specified Sites 10/12/2009 KARYN OLVERA, BYRON Bruner 799.02 Hypoxemia 10/12/2009 SALGUERO DO, LADONNA K [...] DO, LADONNA K 799.02 Hypoxemia 10/12/2009 MADL PRECISION THREAD GRINDER OPERATOR, ETELVINA L 719.58 Stiffness Of Joint, Not Elsewhere Classified, Other Specified Sites 10/12/2009 MADL PRECISION THREAD GRINDER OPERATOR, ETELVINA L 799.02 Hypoxemia 10/12/2009 MADL PRECISION THREAD GRINDER OPERATOR, ETELVINA L 719.58 Stiffness Of Joint, Not Elsewhere Classified, Other Specified Sites 10/12/2009 MADL PRECISION THREAD GRINDER OPERATOR, ETELVINA L 799.02 Hypoxemia 10/12/2009 MADL PRECISION THREAD GRINDER OPERATOR, ETELVINA L 719.58 Stiffness Of Joint, Not Elsewhere Classified, Other Specified Sites 10/12/2009 MADL PRECISION THREAD GRINDER OPERATOR, ETELVINA L 799.02 Hypoxemia 10/12/2009 SALGUERO DO, LADONNA K 719.58 Stiffness Of Joint, Not Elsewhere Classified, Other Specified Sites 10/12/2009 SALGUERO DO, LADONNA K 799.02 Hypoxemia 10/12/2009 SALGUERO DO, LADONNA K 719.58 Stiffness Of Joint, Not Elsewhere Classified, Other Specified Sites 10/12/2009 SALGUERO DO, LADONNA K 799.02 Hypoxemia 10/12/2009 MADL PRECISION THREAD GRINDER OPERATOR, ETELVINA L 719.58 Stiffness Of Joint, Not Elsewhere Classified, Other Specified Sites 10/12/2009 MADL PRECISION THREAD GRINDER OPERATOR, ETELVINA L 799.02 Hypoxemia 10/12/2009 MADL PRECISION THREAD GRINDER OPERATOR, ETELVINA L 719.58 Stiffness Of Joint, Not Elsewhere Classified, Other Specified Sites 10/12/2009 MADL PRECISION THREAD GRINDER OPERATOR, ETELVINA L 799.02 Hypoxemia 10/12/2009 MADL PRECISION THREAD GRINDER OPERATOR, ETELVINA L 719.58 Stiffness Of Joint, Not Elsewhere Classified, Other Specified Sites 10/12/2009 MADL PRECISION THREAD GRINDER OPERATOR, ETELVINA L 799.02 Hypoxemia 10/12/2009 MADL PRECISION THREAD GRINDER OPERATOR, ETELVINA L 719.58 Stiffness Of Joint, Not Elsewhere Classified, Other Specified Sites 10/12/2009 MADL PRECISION THREAD GRINDER OPERATOR, ETELVINA L 799.02 Hypoxemia 10/12/2009 MADL PRECISION THREAD GRINDER OPERATOR, ETELVINA L 719.58 Stiffness Of Joint, Not Elsewhere Classified, Other Specified Sites 10/12/2009 MADL PRECISION THREAD GRINDER OPERATOR, ETELVINA L 799.02 Hypoxemia 10/12/2009 MADL PRECISION THREAD GRINDER OPERATOR, ETELVINA L 719.58 Stiffness Of Joint, Not Elsewhere Classified, Other Specified Sites 10/12/2009 MADL PRECISION THREAD GRINDER OPERATOR, ETELVINA L 799.02 Hypoxemia 10/12/2009 MADL PRECISION THREAD GRINDER OPERATOR, ETELVINA L 719.58 Stiffness Of Joint, Not Elsewhere Classified, Other Specified Sites 10/12/2009 MADL PRECISION THREAD GRINDER OPERATOR, ETELVINA L 799.02 Hypoxemia 10/12/2009 SALGUERO DO, LADONNA K 719.58 Stiffness Of Joint, Not Elsewhere Classified, Other Specified Sites 10/12/2009 SALGUERO DO, LADONNA K 799.02 Hypoxemia 10/12/2009 SALGUERO DO, LADONNA K 719.58 Stiffness Of Joint, Not Elsewhere Classified, Other Specified Sites 10/12/2009 SALGUERO DO, LADONNA K 799.02 Hypoxemia 10/12/2009 MADL PRECISION THREAD GRINDER OPERATOR, ETELVINA L 719.58 Stiffness Of Joint, Not Elsewhere Classified, Other Specified Sites 10/12/2009 MADL PRECISION THREAD GRINDER OPERATOR, ETELVINA L 799.02 Hypoxemia 10/12/2009 SALGUERO DO, LADONNA K 719.58 Stiffness Of Joint, Not Elsewhere Classified, Other Specified Sites 10/12/2009 SALGUERO DO, LADONNA K 799.02 Hypoxemia 10/12/2009 MADL PRECISION THREAD GRINDER OPERATOR, ETELVINA L 719.58 Stiffness Of Joint, Not Elsewhere Classified, Other Specified Sites 10/12/2009 MADL PRECISION THREAD GRINDER OPERATOR, ETELVINA L 799.02 Hypoxemia 11/07/2009 MORGAN HUDSONN, LAURIE S 300.00 ANXIETY UNSPEC 11/07/2009 MORGAN PRECISION THREAD GRINDER OPERATOR, LAURIE S 305.1 NICOTINE DEPENDENCE - CONTINUOUS 11/07/2009 300.00 Anxiety Unspec 11/07/2009 305.1 NICOTINE DEPENDENCE - CONTINUOUS 11/07/2009 MORGAN PRECISION THREAD GRINDER OPERATOR, LAURIE S 300.00 Anxiety Unspec 11/07/2009 MORGAN PRECISION THREAD GRINDER OPERATOR, LAURIE S 305.1 NICOTINE DEPENDENCE - CONTINUOUS 11/07/2009 MORGAN PRECISION THREAD GRINDER OPERATOR, LAURIE S 300.00 Anxiety Unspec 11/07/2009 MORGAN PRECISION THREAD GRINDER OPERATOR, LAURIE S 305.1 NICOTINE DEPENDENCE - CONTINUOUS [...] 305.1 NICOTINE DEPENDENCE - CONTINUOUS 11/07/2009 MADL PRECISION THREAD GRINDER OPERATOR, ETELVINA L 300.00 Anxiety Unspec 11/07/2009 MADL PRECISION THREAD GRINDER OPERATOR, ETELVINA L 305.1 NICOTINE DEPENDENCE - CONTINUOUS 11/07/2009 MADL PRECISION THREAD GRINDER OPERATOR, ETELVINA L 300.00 Anxiety Unspec 11/07/2009 MADL PRECISION THREAD GRINDER OPERATOR, ETELVINA L 305.1 NICOTINE DEPENDENCE - CONTINUOUS 11/07/2009 MADL PRECISION THREAD GRINDER OPERATOR, ETELVINA L 300.00 Anxiety Unspec 11/07/2009 MADL PRECISION THREAD GRINDER OPERATOR, ETELVINA L 305.1 NICOTINE DEPENDENCE - CONTINUOUS 11/07/2009 SALGUERO DO, LADONNA K 300.00 Anxiety Unspec 11/07/2009 SALGUERO DO, LADONNA K 305.1 NICOTINE DEPENDENCE - CONTINUOUS 11/07/2009 SALGUERO DO, LADONNA K 300.00 Anxiety Unspec 11/07/2009 SALGUERO DO, LADONNA K 305.1 NICOTINE DEPENDENCE - CONTINUOUS 11/07/2009 MADL PRECISION THREAD GRINDER OPERATOR, ETELVINA L 300.00 Anxiety Unspec 11/07/2009 MADL PRECISION THREAD GRINDER OPERATOR, ETELVINA L 305.1 NICOTINE DEPENDENCE - CONTINUOUS 11/07/2009 MADL PRECISION THREAD GRINDER OPERATOR, ETELVINA L 300.00 Anxiety Unspec 11/07/2009 MADL PRECISION THREAD GRINDER OPERATOR, ETELVINA L 305.1 NICOTINE DEPENDENCE - CONTINUOUS 11/07/2009 MADL PRECISION THREAD GRINDER OPERATOR, ETELVINA L 300.00 Anxiety Unspec 11/07/2009 MADL PRECISION THREAD GRINDER OPERATOR, ETELVINA L 305.1 NICOTINE DEPENDENCE - CONTINUOUS 11/07/2009 MADL PRECISION THREAD GRINDER OPERATOR, ETELVINA L 300.00 Anxiety Unspec 11/07/2009 MADL PRECISION THREAD GRINDER OPERATOR, ETELVINA L 305.1 NICOTINE DEPENDENCE - CONTINUOUS 11/07/2009 MADL PRECISION THREAD GRINDER OPERATOR, ETELVINA L 300.00 Anxiety Unspec 11/07/2009 MADL PRECISION THREAD GRINDER OPERATOR, ETELVINA L 305.1 NICOTINE DEPENDENCE - CONTINUOUS 11/07/2009 MADL PRECISION THREAD GRINDER OPERATOR, ETELVINA L 300.00 Anxiety Unspec 11/07/2009 MADL PRECISION THREAD GRINDER OPERATOR, ETELVINA L 305.1 NICOTINE DEPENDENCE - CONTINUOUS 11/07/2009 MADL PRECISION THREAD GRINDER OPERATOR, ETELVINA L 300.00 Anxiety Unspec 11/07/2009 MADL PRECISION THREAD GRINDER OPERATOR, ETELVINA L 305.1 NICOTINE DEPENDENCE - CONTINUOUS 11/07/2009 SALGUERO DO, LADONNA K 300.00 Anxiety Unspec 11/07/2009 SALGUERO DO, LADONNA K 305.1 NICOTINE DEPENDENCE - CONTINUOUS 11/07/2009 SALGUERO DO, LADONNA K 300.00 Anxiety Unspec 11/07/2009 SALGUERO DO, LADONNA K 305.1 NICOTINE DEPENDENCE - CONTINUOUS 11/07/2009 MADL PRECISION THREAD GRINDER OPERATOR, ETELVINA L 300.00 Anxiety Unspec 11/07/2009 MADL PRECISION THREAD GRINDER OPERATOR, ETELVINA L 305.1 NICOTINE DEPENDENCE - CONTINUOUS 11/07/2009 SALGUERO DO, LADONNA K 300.00 Anxiety Unspec 11/07/2009 SALGUERO DO, LADONNA K 305.1 NICOTINE DEPENDENCE - CONTINUOUS 11/07/2009 MADL PRECISION THREAD GRINDER OPERATOR, ETELVINA L 300.00 Anxiety Unspec 11/07/2009 MADL PRECISION THREAD GRINDER OPERATOR, ETELVINA L 305.1 NICOTINE DEPENDENCE - CONTINUOUS 01/31/2010 MORGAN PRECISION THREAD GRINDER OPERATOR, LAURIE S 719.43 Joint Pain, Localized In The Wrist 01/31/2010 MORGAN PRECISION THREAD GRINDER OPERATOR, LAURIE S 782.0 Numbness (hypesthesia) 01/31/2010 719.43 Joint Pain, Localized In The Wrist 01/31/2010 782.0 Numbness (hypesthesia) 01/31/2010 MORGAN PRECISION THREAD GRINDER OPERATOR, LAURIE S 719.43 Joint Pain, Localized In The Wrist 01/31/2010 MORGAN PRECISION THREAD GRINDER OPERATOR, LAURIE S 782.0 Numbness (hypesthesia) 01/31/2010 LAURIE MORA APRN S 719.43 Joint Pain, Localized In The Wrist 01/31/2010 LAURIE MORA APRN S 782.0 Numbness (hypesthesia) 01/31/2010 ROMELIA FISCHER MD 719.43 Joint Pain, Localized In The Wrist 01/31/2010 ROMELIA FISCHER MD 782.0 Numbness (hypesthesia) 01/31/2010 BYRON BOSS MD 719.43 Joint Pain, Localized In The Wrist 01/31/2010 BYRON BOSS MD 782.0 Numbness (hypesthesia) 01/31/2010 719.43 Joint Pain, Localized In The Wrist 01/31/2010 782.0 Numbness (hypesthesia) 01/31/2010 719.43 Joint Pain, Localized In The Wrist 01/31/2010 782.0 Numbness (hypesthesia) 01/31/2010 719.43 Joint Pain, Localized In The Wrist 01/31/2010 782.0 Numbness (hypesthesia) 01/31/2010 719.43 Joint Pain, Localized In The Wrist 01/31/2010 782.0 Numbness (hypesthesia) 01/31/2010 BYRON BOSS MD [...] BOSS MD 782.0 Numbness (hypesthesia) 01/31/2010 NOEMY DO LADONNA K 719.43 Joint Pain, Localized [...] LADONNA K 782.0 Numbness (hypesthesia) 01/31/2010 MADL PRECISION THREAD GRINDER OPERATOR, ETELVINA L 719.43 Joint Pain, Localized In The Wrist 01/31/2010 MADL PRECISION THREAD GRINDER OPERATOR, ETELVINA L 782.0 Numbness (hypesthesia) 01/31/2010 MADL PRECISION THREAD GRINDER OPERATOR, ETELVINA L 719.43 Joint Pain, Localized In The Wrist 01/31/2010 MADL PRECISION THREAD GRINDER OPERATOR, ETELVINA L 782.0 Numbness (hypesthesia) 01/31/2010 MADL PRECISION THREAD GRINDER OPERATOR, ETELVINA L 719.43 Joint Pain, Localized In The Wrist 01/31/2010 MADL PRECISION THREAD GRINDER OPERATOR, ETELVINA L 782.0 Numbness (hypesthesia) 01/31/2010 SALGUERO DO, LADONNA K 719.43 Joint Pain, Localized In The Wrist 01/31/2010 SALGUERO DO, LADONNA K 782.0 Numbness (hypesthesia) 01/31/2010 SALGUERO DO, LADONNA K 719.43 Joint Pain, Localized In The Wrist 01/31/2010 SALGUERO DO, LADONNA K 782.0 Numbness (hypesthesia) 01/31/2010 MADL PRECISION THREAD GRINDER OPERATOR, ETELVINA L 719.43 Joint Pain, Localized In The Wrist 01/31/2010 MADL PRECISION THREAD GRINDER OPERATOR, ETELVINA L 782.0 Numbness (hypesthesia) 01/31/2010 MADL PRECISION THREAD GRINDER OPERATOR, ETELVINA L 719.43 Joint Pain, Localized In The Wrist 01/31/2010 MADL PRECISION THREAD GRINDER OPERATOR, ETELVINA L 782.0 Numbness (hypesthesia) 01/31/2010 MADL PRECISION THREAD GRINDER OPERATOR, ETELVINA L 719.43 Joint Pain, Localized In The Wrist 01/31/2010 MADL PRECISION THREAD GRINDER OPERATOR, ETELVINA L 782.0 Numbness (hypesthesia) 01/31/2010 MADL PRECISION THREAD GRINDER OPERATOR, ETELVINA L 719.43 Joint Pain, Localized In The Wrist 01/31/2010 MADL PRECISION THREAD GRINDER OPERATOR, ETELVINA L 782.0 Numbness (hypesthesia) 01/31/2010 MADL PRECISION THREAD GRINDER OPERATOR, ETELVINA L 719.43 Joint Pain, Localized In The Wrist 01/31/2010 MADL PRECISION THREAD GRINDER OPERATOR, ETELVINA L 782.0 Numbness (hypesthesia) 01/31/2010 MADL PRECISION THREAD GRINDER OPERATOR, ETELVINA L 719.43 Joint Pain, Localized In The Wrist 01/31/2010 MADL PRECISION THREAD GRINDER OPERATOR, ETELVINA L 782.0 Numbness (hypesthesia) 01/31/2010 MADL PRECISION THREAD GRINDER OPERATOR, ETELVINA L 719.43 Joint Pain, Localized In The Wrist 01/31/2010 MADL PRECISION THREAD GRINDER OPERATOR, ETELVINA L 782.0 Numbness (hypesthesia) 01/31/2010 SALGUERO DO, LADONNA K 719.43 Joint Pain, Localized In The Wrist 01/31/2010 SALGUERO DO, LADONNA K 782.0 Numbness (hypesthesia) 01/31/2010 SALGUERO DO, LADONNA K 719.43 Joint Pain, Localized In The Wrist 01/31/2010 SALGUERO DO, LADONNA K 782.0 Numbness (hypesthesia) 01/31/2010 MADL PRECISION THREAD GRINDER OPERATOR, ETELVINA L 719.43 Joint Pain, Localized In The Wrist 01/31/2010 MADL PRECISION THREAD GRINDER OPERATOR, ETELVINA L 782.0 Numbness (hypesthesia) 01/31/2010 SALGUERO DO, LADONNA K 719.43 Joint Pain, Localized In The Wrist 01/31/2010 SALGUERO DO, LADONNA K 782.0 Numbness (hypesthesia) 01/31/2010 MADL PRECISION THREAD GRINDER OPERATORETELVINA Bowser L 719.43 Joint Pain, Localized In The Wrist 01/31/2010 MADL PRECISION THREAD GRINDER OPERATORHAMMAD BowserA L 782.0 Numbness (hypesthesia) 03/14/2010 Ot 719.43 03/14/2010 Ot 782.0 03/14/2010 Ot V57.21 04/02/2010 LAURIE MORA APRN S 517.3 Acute Chest Syndrome 04/02/2010 517.3 [...] BOSS MD 517.3 Acute Chest Syndrome 04/02/2010 TERE SALGUERO DOA K 517.3 Acute Chest Syndrome 04/02/2010 NOEMY PRAKASH LADONNA K 517.3 Acute Chest Syndrome 04/02/2010 SALGUERO DO LADONNA K 517.3 Acute Chest Syndrome 04/02/2010 SALGUERO DO LADONNA K 517.3 Acute Chest Syndrome 04/02/2010 MADMaxine PRECISION THREAD GRINDER OPERATORHAMMAD BowserA L 517.3 Acute Chest Syndrome 04/02/2010 MADMaxine PRECISION THREAD GRINDER OPERATOR, ETELVINA L 517.3 Acute Chest Syndrome 04/02/2010 MADL PRECISION THREAD GRINDER OPERATOR, ETELVINA L 517.3 Acute Chest Syndrome 04/02/2010 SALGUERO DO, LADONNA K 517.3 Acute Chest Syndrome 04/02/2010 SALGUERO DO, LADONNA K 517.3 Acute Chest Syndrome 04/02/2010 MADL PRECISION THREAD GRINDER OPERATOR, ETELVINA L 517.3 Acute Chest Syndrome 04/02/2010 MADL PRECISION THREAD GRINDER OPERATOR, ETELVINA L 517.3 Acute Chest Syndrome 04/02/2010 MADL PRECISION THREAD GRINDER OPERATOR, ETELVINA L 517.3 Acute Chest Syndrome 04/02/2010 MADL PRECISION THREAD GRINDER OPERATOR, ETELVINA L 517.3 Acute Chest Syndrome 04/02/2010 MADL PRECISION THREAD GRINDER OPERATOR, ETELVINA L 517.3 Acute Chest Syndrome 04/02/2010 MADL PRECISION THREAD GRINDER OPERATOR, ETELVINA L 517.3 Acute Chest Syndrome 04/02/2010 MADL PRECISION THREAD GRINDER OPERATOR, ETELVINA L 517.3 Acute Chest Syndrome 04/02/2010 SALGUERO DO, LADONNA K 517.3 Acute Chest Syndrome 04/02/2010 SALGUERO DO, LADONNA K 517.3 Acute Chest Syndrome 04/02/2010 MADL PRECISION THREAD GRINDER OPERATOR, ETELVINA L 517.3 Acute Chest Syndrome 04/02/2010 SALGUERO DO, LADONNA K 517.3 Acute Chest Syndrome 04/02/2010 MADL PRECISION THREAD GRINDER OPERATOR, ETELVINA L 517.3 Acute Chest Syndrome 04/14/2010 Ot 305.1 04/14/2010 Ot 491.21 04/14/2010 Ot 786.05 05/20/2010 MORGAN PRECISION THREAD GRINDER OPERATOR, LAURIE S 272.4 HYPERLIPIDEMIA 05/20/2010 MORGAN PRECISION THREAD GRINDER OPERATOR, LAURIE S 414.01 CAD 05/20/2010 272.4 HYPERLIPIDEMIA 05/20/2010 414.01 CAD 05/20/2010 MORGAN PRECISION THREAD GRINDER OPERATOR, LAURIE S 272.4 HYPERLIPIDEMIA 05/20/2010 MORGAN PRECISION THREAD GRINDER OPERATOR, LAURIE S 414.01 CAD 05/20/2010 MORGAN PRECISION THREAD GRINDER OPERATOR, LAURIE S 272.4 HYPERLIPIDEMIA 05/20/2010 MORGAN PRECISION THREAD GRINDER OPERATOR, LAURIE S 414.01 CAD 05/20/2010 AMADO OLVERA, ROMELIA 272.4 HYPERLIPIDEMIA 05/20/2010 AMADO OLVERA, ROMELIA 414.01 CAD 05/20/2010 BYRON BOSS MD 272.4 [...] 414.01 CORONARY ARTERY STENOSIS MULTI-VESSEL 05/20/2010 MADL PRECISION THREAD GRINDER OPERATOR, ETELVINA L 272.4 HYPERLIPIDEMIA 05/20/2010 MADL PRECISION THREAD GRINDER OPERATOR, ETELVINA L 414.01 CORONARY ARTERY STENOSIS MULTI-VESSEL 05/20/2010 MADL PRECISION THREAD GRINDER OPERATOR, ETELVINA L 272.4 HYPERLIPIDEMIA 05/20/2010 MADL PRECISION THREAD GRINDER OPERATOR, ETELVINA L 414.01 CORONARY ARTERY STENOSIS MULTI-VESSEL 05/20/2010 MADL PRECISION THREAD GRINDER OPERATOR, ETELVINA L 272.4 HYPERLIPIDEMIA 05/20/2010 MADL PRECISION THREAD GRINDER OPERATOR, ETELVINA L 414.01 CORONARY ARTERY STENOSIS MULTI-VESSEL 05/20/2010 SALGUERO DO, LADONNA K 272.4 HYPERLIPIDEMIA 05/20/2010 SALGUERO DO, LADONNA K 414.01 CORONARY ARTERY STENOSIS MULTI-VESSEL 05/20/2010 SALGUERO DO, LADONNA K 272.4 HYPERLIPIDEMIA 05/20/2010 SALGUERO DO, LADONNA K 414.01 CORONARY ARTERY STENOSIS MULTI-VESSEL 05/20/2010 MADL PRECISION THREAD GRINDER OPERATOR, ETELVINA L 272.4 HYPERLIPIDEMIA 05/20/2010 MADL PRECISION THREAD GRINDER OPERATOR, ETELVINA L 414.01 CORONARY ARTERY STENOSIS MULTI-VESSEL 05/20/2010 MADL PRECISION THREAD GRINDER OPERATOR, ETELVINA L 272.4 HYPERLIPIDEMIA 05/20/2010 MADL PRECISION THREAD GRINDER OPERATOR, ETELVINA L 414.01 CORONARY ARTERY STENOSIS MULTI-VESSEL 05/20/2010 MADL PRECISION THREAD GRINDER OPERATOR, ETELVINA L 272.4 HYPERLIPIDEMIA 05/20/2010 MADL PRECISION THREAD GRINDER OPERATOR, ETELVINA L 414.01 CORONARY ARTERY STENOSIS MULTI-VESSEL 05/20/2010 MADL PRECISION THREAD GRINDER OPERATOR, ETELVINA L 272.4 HYPERLIPIDEMIA 05/20/2010 MADL PRECISION THREAD GRINDER OPERATOR, ETELVINA L 414.01 CORONARY ARTERY STENOSIS MULTI-VESSEL 05/20/2010 MADL PRECISION THREAD GRINDER OPERATOR, ETELVINA L 272.4 HYPERLIPIDEMIA 05/20/2010 MADL PRECISION THREAD GRINDER OPERATOR, ETELVINA L 414.01 CORONARY ARTERY STENOSIS MULTI-VESSEL 05/20/2010 MADL PRECISION THREAD GRINDER OPERATOR, ETELVINA L 272.4 HYPERLIPIDEMIA 05/20/2010 MADL PRECISION THREAD GRINDER OPERATOR, ETELVINA L 414.01 CORONARY ARTERY STENOSIS MULTI-VESSEL 05/20/2010 MADL PRECISION THREAD GRINDER OPERATOR, ETELVINA L 272.4 HYPERLIPIDEMIA 05/20/2010 MADL PRECISION THREAD GRINDER OPERATOR, ETELVINA L 414.01 CORONARY ARTERY STENOSIS MULTI-VESSEL 05/20/2010 SALGUERO DO, LADONNA K 272.4 HYPERLIPIDEMIA 05/20/2010 SALGUERO DO, LADONNA K 414.01 CORONARY ARTERY STENOSIS MULTI-VESSEL 05/20/2010 SALGUERO DO, LADONNA K 272.4 HYPERLIPIDEMIA 05/20/2010 SALGUERO DO, LADONNA K 414.01 CORONARY ARTERY STENOSIS MULTI-VESSEL 05/20/2010 MADL PRECISION THREAD GRINDER OPERATOR, ETELVINA L 272.4 HYPERLIPIDEMIA 05/20/2010 MADL PRECISION THREAD GRINDER OPERATOR, ETELVINA L 414.01 CORONARY ARTERY STENOSIS MULTI-VESSEL 05/20/2010 SALGUERO DO, LADONNA K 272.4 HYPERLIPIDEMIA 05/20/2010 SALGUERO DO, LADONNA K 414.01 CORONARY ARTERY STENOSIS MULTI-VESSEL 05/20/2010 MADL PRECISION THREAD GRINDER OPERATOR, ETELVINA L 272.4 HYPERLIPIDEMIA 05/20/2010 MADL PRECISION THREAD GRINDER OPERATOR, ETELVINA L 414.01 CORONARY ARTERY STENOSIS MULTI-VESSEL 05/26/2010 Ot 842.00 05/26/2010 Ot 959.3 05/26/2010 Ot E000.8 05/26/2010 Ot E013.9 05/26/2010 Ot E849.0 05/26/2010 Ot E917.9 07/31/2010 LAURIE MORA APRN S 356.9 UNSPECIFIED IDIOPATHIC PERIPHERAL NEUROPATHY 07/31/2010 356.9 UNSPECIFIED IDIOPATHIC PERIPHERAL NEUROPATHY 07/31/2010 LAURIE MORA APRN S 356.9 UNSPECIFIED IDIOPATHIC PERIPHERAL NEUROPATHY 07/31/2010 LAURIE MORA APRN S 356.9 UNSPECIFIED IDIOPATHIC PERIPHERAL NEUROPATHY 07/31/2010 ROMELIA [...] K 356.9 UNSPECIFIED IDIOPATHIC PERIPHERAL NEUROPATHY 07/31/2010 BYRON [...] 356.9 UNSPECIFIED IDIOPATHIC PERIPHERAL NEUROPATHY 07/31/2010 MADL PRECISION THREAD GRINDER OPERATOR, ETELVINA L 356.9 UNSPECIFIED IDIOPATHIC PERIPHERAL NEUROPATHY 07/31/2010 MADL PRECISION THREAD GRINDER OPERATOR, ETELVINA L 356.9 UNSPECIFIED IDIOPATHIC PERIPHERAL NEUROPATHY 07/31/2010 MADL PRECISION THREAD GRINDER OPERATOR, ETELVINA L 356.9 UNSPECIFIED IDIOPATHIC PERIPHERAL NEUROPATHY 07/31/2010 SALGUERO DO, LADONNA K 356.9 UNSPECIFIED IDIOPATHIC PERIPHERAL NEUROPATHY 07/31/2010 SALGUERO DO, LADONNA K 356.9 UNSPECIFIED IDIOPATHIC PERIPHERAL NEUROPATHY 07/31/2010 MADL PRECISION THREAD GRINDER OPERATOR, ETELVINA L 356.9 UNSPECIFIED IDIOPATHIC PERIPHERAL NEUROPATHY 07/31/2010 MADL PRECISION THREAD GRINDER OPERATOR, ETELVINA L 356.9 UNSPECIFIED IDIOPATHIC PERIPHERAL NEUROPATHY 07/31/2010 MADL PRECISION THREAD GRINDER OPERATOR, ETELVINA L 356.9 UNSPECIFIED IDIOPATHIC PERIPHERAL NEUROPATHY 07/31/2010 MADL PRECISION THREAD GRINDER OPERATOR, ETELVINA L 356.9 UNSPECIFIED IDIOPATHIC PERIPHERAL NEUROPATHY 07/31/2010 MADL PRECISION THREAD GRINDER OPERATOR, ETELVINA L 356.9 UNSPECIFIED IDIOPATHIC PERIPHERAL NEUROPATHY 07/31/2010 MADL PRECISION THREAD GRINDER OPERATOR, ETELVINA L 356.9 UNSPECIFIED IDIOPATHIC PERIPHERAL NEUROPATHY 07/31/2010 MADL PRECISION THREAD GRINDER OPERATOR, ETELVINA L 356.9 UNSPECIFIED IDIOPATHIC PERIPHERAL NEUROPATHY 07/31/2010 SALGUERO DO, LADONNA K 356.9 UNSPECIFIED IDIOPATHIC PERIPHERAL NEUROPATHY 07/31/2010 SALGUERO DO, LADONNA K 356.9 UNSPECIFIED IDIOPATHIC PERIPHERAL NEUROPATHY 07/31/2010 MADL PRECISION THREAD GRINDER OPERATOR, ETELVINA L 356.9 UNSPECIFIED IDIOPATHIC PERIPHERAL NEUROPATHY 07/31/2010 SALGUERO DO, LADONNA K 356.9 UNSPECIFIED IDIOPATHIC PERIPHERAL NEUROPATHY 07/31/2010 MADL PRECISION THREAD GRINDER OPERATOR, ETELVINA L 356.9 UNSPECIFIED IDIOPATHIC PERIPHERAL NEUROPATHY 08/01/2010 MORGAN PRECISION THREAD GRINDER OPERATOR, LAURIE S 791.0 Microalbuminuria 08/01/2010 791.0 Microalbuminuria 08/01/2010 MORGAN PRECISION THREAD GRINDER OPERATOR, LAURIE S 791.0 Microalbuminuria 08/01/2010 MORGAN PRECISION THREAD GRINDER OPERATOR, LAURIE S 791.0 Microalbuminuria 08/01/2010 ROMELIA FISCHER MD 791.0 Microalbuminuria 08/01/2010 KARYN OLVERA, BYRON Bruner 791.0 Microalbuminuria 08/01/2010 791.0 Microalbuminuria 08/01/2010 791.0 Microalbuminuria 08/01/2010 791.0 Microalbuminuria 08/01/2010 791.0 Microalbuminuria 08/01/2010 BYRON BOSS MD M 791.0 Microalbuminuria 08/01/2010 KARYN OLVERA, BYRON M 791.0 Microalbuminuria 08/01/2010 SALGUERO DO, LADONNA K 791.0 Microalbuminuria 08/01/2010 KARYN OLVERA, BYRON M 791.0 Microalbuminuria 08/01/2010 SALGUERO DO, LADONNA K 791.0 Microalbuminuria 08/01/2010 KARYN OLVERA, BYRON M 791.0 Microalbuminuria 08/01/2010 BYRON BOSS MD M 791.0 Microalbuminuria 08/01/2010 SALGUERO DO, LADONNA K 791.0 Microalbuminuria 08/01/2010 SALGUERO DO, LADONNA K 791.0 Microalbuminuria 08/01/2010 SALGUERO DO, LADONNA K 791.0 Microalbuminuria 08/01/2010 SALGUERO DO, LADONNA K 791.0 Microalbuminuria 08/01/2010 MADL PRECISION THREAD GRINDER OPERATOR, ETELVINA L 791.0 Microalbuminuria 08/01/2010 MADL PRECISION THREAD GRINDER OPERATOR, ETELVINA L 791.0 Microalbuminuria 08/01/2010 MADL PRECISION THREAD GRINDER OPERATOR, ETELVINA L 791.0 Microalbuminuria 08/01/2010 SALGUERO DO, LADONNA K 791.0 Microalbuminuria 08/01/2010 SALGUERO DO, LADONNA K 791.0 Microalbuminuria 08/01/2010 MADL PRECISION THREAD GRINDER OPERATOR, ETELVINA L 791.0 Microalbuminuria 08/01/2010 MADL PRECISION THREAD GRINDER OPERATOR, ETELVINA L 791.0 Microalbuminuria 08/01/2010 MADL PRECISION THREAD GRINDER OPERATOR, ETELVINA L 791.0 Microalbuminuria 08/01/2010 MADL PRECISION THREAD GRINDER OPERATOR, ETELVINA L 791.0 Microalbuminuria 08/01/2010 MADL PRECISION THREAD GRINDER OPERATOR, ETELVINA L 791.0 Microalbuminuria 08/01/2010 MADL PRECISION THREAD GRINDER OPERATOR, ETELVINA L 791.0 Microalbuminuria 08/01/2010 MADL PRECISION THREAD GRINDER OPERATOR, ETELVINA L 791.0 Microalbuminuria 08/01/2010 SALGUERO DO, LADONNA K 791.0 Microalbuminuria 08/01/2010 SALGUERO DO, LADONNA K 791.0 Microalbuminuria 08/01/2010 MADL PRECISION THREAD GRINDER OPERATOR, ETELVINA L 791.0 Microalbuminuria 08/01/2010 SALGUERO DO, LADONNA K 791.0 Microalbuminuria 08/01/2010 MADL PRECISION THREAD GRINDER OPERATOR, ETELVINA L 791.0 Microalbuminuria 08/05/2010 MORGAN HARRIS LAURIE S 721.0 CERVICAL SPONDYLOSIS WITHOUT MYELOPATHY 08/05/2010 721.0 Cervical Spondylosis Without Myelopathy 08/05/2010 MORGAN HARRIS LAURIE S 721.0 Cervical Spondylosis Without Myelopathy 08/05/2010 MORGAN HARRIS LAURIE S 721.0 Cervical Spondylosis Without Myelopathy 08/05/2010 AMADO OLVERA, ROMELIA 721.0 Cervical Spondylosis Without Myelopathy 08/05/2010 BYRON [...] K 721.0 Cervical Spondylosis Without Myelopathy 08/05/2010 BYRON BOSS MD 721.0 Cervical Spondylosis Without Myelopathy 08/05/2010 SALGUERO DO LADONNA K 721.0 Cervical Spondylosis Without Myelopathy 08/05/2010 BYRON [...] 721.0 Cervical Spondylosis Without Myelopathy 08/05/2010 MADL PRECISION THREAD GRINDER OPERATOR, ETELVINA L 721.0 Cervical Spondylosis Without Myelopathy 08/05/2010 MADL PRECISION THREAD GRINDER OPERATOR, ETELVINA L 721.0 Cervical Spondylosis Without Myelopathy 08/05/2010 MADL PRECISION THREAD GRINDER OPERATOR, ETELVINA L 721.0 Cervical Spondylosis Without Myelopathy 08/05/2010 NOEMY DO, LADONNA K 721.0 Cervical Spondylosis Without Myelopathy 08/05/2010 SALGUERO DO, LADONNA K 721.0 Cervical Spondylosis Without Myelopathy 08/05/2010 MADL PRECISION THREAD GRINDER OPERATOR, ETELVINA L 721.0 Cervical Spondylosis Without Myelopathy 08/05/2010 MADL PRECISION THREAD GRINDER OPERATOR, ETELVINA L 721.0 Cervical Spondylosis Without Myelopathy 08/05/2010 MADL PRECISION THREAD GRINDER OPERATOR, ETELVINA L 721.0 Cervical Spondylosis Without Myelopathy 08/05/2010 MADL PRECISION THREAD GRINDER OPERATOR, ETELVINA L 721.0 Cervical Spondylosis Without Myelopathy 08/05/2010 MADL PRECISION THREAD GRINDER OPERATOR, ETELVINA L 721.0 Cervical Spondylosis Without Myelopathy 08/05/2010 MADL PRECISION THREAD GRINDER OPERATOR, ETELVINA L 721.0 Cervical Spondylosis Without Myelopathy 08/05/2010 MADL PRECISION THREAD GRINDER OPERATOR, ETELVINA L 721.0 Cervical Spondylosis Without Myelopathy 08/05/2010 SALGUERO DO, LADONNA K 721.0 Cervical Spondylosis Without Myelopathy 08/05/2010 SALGUERO DO, LADONNA K 721.0 Cervical Spondylosis Without Myelopathy 08/05/2010 ETELVINA LEONARD APRN 721.0 Cervical Spondylosis Without Myelopathy 08/05/2010 LADONNA SALGUERO DO 721.0 Cervical Spondylosis Without Myelopathy 08/05/2010 AISHA HARRIS, ETELVINA Goodman 721.0 Cervical Spondylosis Without Myelopathy 08/07/2010 Ot 847.0 08/07/2010 Ot 847.2 08/07/2010 Ot 959.09 08/07/2010 Ot E000.8 08/07/2010 Ot E849.0 08/07/2010 Ot E884.2 08/13/2010 MORGAN PRECISION THREAD GRINDER OPERATOR, LAURIE S 441.4 ABDOMINAL ANEURYSM WITHOUT MENTION OF RUPTURE 08/13/2010 MORGAN PRECISION THREAD GRINDER OPERATOR, LAURIE S 724.2 LUMBAGO 08/13/2010 441.4 Abdominal Aneurysm Without Mention Of Rupture 08/13/2010 724.2 LUMBAGO 08/13/2010 MORGAN PRECISION THREAD GRINDER OPERATOR, LAURIE S 441.4 Abdominal Aneurysm Without Mention Of Rupture 08/13/2010 MORGAN PRECISION THREAD GRINDER OPERATOR, LAURIE S 724.2 LUMBAGO 08/13/2010 MORGAN PRECISION THREAD GRINDER OPERATOR, LAURIE S 441.4 Abdominal Aneurysm Without Mention Of Rupture 08/13/2010 MORGAN PRECISION THREAD GRINDER OPERATOR, LAURIE S 724.2 LUMBAGO 08/13/2010 ROMELIA FISCHER [...] Abdominal Aneurysm Without Mention Of Rupture 08/13/2010 BYORN BOSS MD 724.2 lower back pain 08/13/2010 SALGUERO DO, LADONNA K 441.4 Abdominal Aneurysm Without Mention Of Rupture 08/13/2010 SALGUERO DO, LADONNA K 724.2 lower back pain 08/13/2010 BYRON BOSS MD 441.4 Abdominal Aneurysm Without Mention Of Rupture 08/13/2010 BYRON BOSS MD 724.2 lower back pain 08/13/2010 SALGUERO DO, LADONNA K 441.4 Abdominal Aneurysm Without Mention Of Rupture 08/13/2010 SALGUERO DO LADONNA K 724.2 lower back pain 08/13/2010 [...] K 724.2 lower back pain 08/13/2010 MADL PRECISION THREAD GRINDER OPERATOR, ETELVINA L 441.4 Abdominal Aneurysm Without Mention Of Rupture 08/13/2010 MADL PRECISION THREAD GRINDER OPERATOR, ETELVINA L 724.2 lower back pain 08/13/2010 MADL PRECISION THREAD GRINDER OPERATOR, ETELVINA L 441.4 Abdominal Aneurysm Without Mention Of Rupture 08/13/2010 MADL PRECISION THREAD GRINDER OPERATOR, ETELVINA L 724.2 lower back pain 08/13/2010 MADL PRECISION THREAD GRINDER OPERATOR, ETELVINA L 441.4 Abdominal Aneurysm Without Mention Of Rupture 08/13/2010 MADL PRECISION THREAD GRINDER OPERATOR, ETELVINA L 724.2 lower back pain 08/13/2010 SALGUERO DO, LADONNA K 441.4 Abdominal Aneurysm Without Mention Of Rupture 08/13/2010 SALGUERO DO, LADONNA K 724.2 lower back pain 08/13/2010 SALGUERO DO, LADONNA K 441.4 Abdominal Aneurysm Without Mention Of Rupture 08/13/2010 SALGUERO DO, LADONNA K 724.2 lower back pain 08/13/2010 MADL PRECISION THREAD GRINDER OPERATOR, ETELVINA L 441.4 Abdominal Aneurysm Without Mention Of Rupture 08/13/2010 MADL PRECISION THREAD GRINDER OPERATOR, ETELVINA L 724.2 lower back pain 08/13/2010 MADL PRECISION THREAD GRINDER OPERATOR, ETELVINA L 441.4 Abdominal Aneurysm Without Mention Of Rupture 08/13/2010 MADL PRECISION THREAD GRINDER OPERATOR, ETELVINA L 724.2 lower back pain 08/13/2010 MADL PRECISION THREAD GRINDER OPERATOR, ETELVINA L 441.4 Abdominal Aneurysm Without Mention Of Rupture 08/13/2010 MADL PRECISION THREAD GRINDER OPERATOR, ETELVINA L 724.2 lower back pain 08/13/2010 MADL PRECISION THREAD GRINDER OPERATOR, ETELVINA L 441.4 Abdominal Aneurysm Without Mention Of Rupture 08/13/2010 MADL PRECISION THREAD GRINDER OPERATOR, ETELVINA L 724.2 lower back pain 08/13/2010 MADL PRECISION THREAD GRINDER OPERATOR, ETELVINA L 441.4 Abdominal Aneurysm Without Mention Of Rupture 08/13/2010 MADL PRECISION THREAD GRINDER OPERATOR, ETELVINA L 724.2 lower back pain 08/13/2010 MADL PRECISION THREAD GRINDER OPERATOR, ETELVINA L 441.4 Abdominal Aneurysm Without Mention Of Rupture 08/13/2010 MADL PRECISION THREAD GRINDER OPERATOR, ETELVINA L 724.2 lower back pain 08/13/2010 MADL PRECISION THREAD GRINDER OPERATOR, ETELVINA L 441.4 Abdominal Aneurysm Without Mention Of Rupture 08/13/2010 MADL PRECISION THREAD GRINDER OPERATOR, ETELVINA L 724.2 lower back pain 08/13/2010 SALGUERO DO, LADONNA K 441.4 Abdominal Aneurysm Without Mention Of Rupture 08/13/2010 SALGUERO DO, LADONNA K 724.2 lower back pain 08/13/2010 SALGUERO DO, LADONNA K 441.4 Abdominal Aneurysm Without Mention Of Rupture 08/13/2010 LADONNA SALGUERO DO K 724.2 lower back pain 08/13/2010 HUGOL ETELVINA HARRIS L 441.4 Abdominal Aneurysm Without Mention Of Rupture 08/13/2010 HUGOL ETELVINA HARRIS L 724.2 lower back pain 08/13/2010 LADONNA SALGUERO DO K 441.4 Abdominal Aneurysm Without Mention Of Rupture 08/13/2010 LADONNA SALGUERO DO K 724.2 lower back pain 08/13/2010 MADL ETELVINA HARRIS L 441.4 Abdominal Aneurysm Without Mention Of [...] 11/08/2010 Ot V45.82 11/08/2010 Ot V57.1 12/12/2010 SUSHANT MORA APRNA S 719.40 Pain In Joint Site Unspecified 12/12/2010 SUSHANT MORA APRNA S 724.5 Back Pain, General 12/12/2010 SUSHANT MORA APRNA S 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 12/12/2010 PALOMA MORA APRNNDA S 729.5 Arm Pain 12/12/2010 719.40 Pain In Joint Site Unspecified 12/12/2010 724.5 Back Pain, General 12/12/2010 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 12/12/2010 729.5 Arm Pain 12/12/2010 PALOMA MORA APRNNDA S 719.40 Pain In Joint Site Unspecified 12/12/2010 PALOMA MORA APRNNDA S 724.5 Back Pain, General 12/12/2010 MORGAN PRECISION THREAD GRINDER OPERATOR, LAURIE S 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 12/12/2010 ROMELIA FISCHER MD 729.5 Arm Pain 12/12/2010 BYRON BOSS [...] BYRON BOSS MD 729.5 Arm Pain 12/12/2010 NOEYM PRAKASH LADONNA K 719.40 Pain In Joint Site Unspecified 12/12/2010 TERE SALGUERO DOA K 724.5 Back Pain, General 12/12/2010 NOEMY PRAKASH LADONNA K 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 12/12/2010 NOEMY PRAKASH LADONNA K 729.5 Arm Pain 12/12/2010 BYRON [...] BOSS MD 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5 Arm Pain 12/12/2010 MADL [employer] THREAD GRINDER OPERATOR, ETELVINA L 719.40 Pain In Joint Site Unspecified 12/12/2010 MADL [employer] GRINDER OPERATOR, ETELVINA L 724.5 Back Pain, General 12/12/2010 MADL [employer]READ GRINDER OPERATOR, ETELVINA L 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 12/12/2010 MADL [employer]READ GRINDER OPERATOR, ETELVINA L 729.5 Arm Pain 12/12/2010 MADL [employer] THREAD GRINDER OPERATOR, ETELVINA L 719.40 Pain In Joint Site Unspecified 12/12/2010 MADL [employer] THREAD GRINDER OPERATOR, ETELVINA L 724.5 Back Pain, General 12/12/2010 MADL [employer]READ GRINDER OPERATOR, ETELVINA L 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 12/12/2010 MADL [employer]READ GRINDER OPERATOR, ETELVINA L 729.5 Arm Pain 12/12/2010 [...] LADONNA K 729.5 Arm Pain 12/12/2010 MADL [employer] GRINDER OPERATOR, ETELVINA L 719.40 Pain In Joint Site Unspecified 12/12/2010 MADL [employer] GRINDER OPERATOR, ETELVINA L 724.5 Back Pain, General 12/12/2010 MADL [employer] THREAD GRINDER OPERATOR, ETELVINA L 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 12/12/2010 MADL [employer] GRINDER OPERATOR, ETELVINA L 729.5 Arm Pain 12/12/2010 MADL [employer]READ GRINDER OPERATOR, ETELVINA L 719.40 Pain In Joint Site Unspecified 12/12/2010 MADL [employer] TH[employer] GRINDER OPERATOR, ETELVINA L 724.5 Back Pain, General 12/12/2010 MADL [employer]READ GRINDER OPERATOR, ETELVINA L 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 12/12/2010 MADL [employer] THREAD GRINDER OPERATOR, ETELVINA L 729.5 Arm Pain 12/12/2010 MADL [employer] GRINDER OPERATOR, ETELVINA L 719.40 Pain In Joint Site Unspecified 12/12/2010 MADL [employer] TH[employer] GRINDER OPERATOR, ETELVINA L 724.5 Back Pain, General 12/12/2010 MADL [employer] GRINDER OPERATOR, ETELVINA L 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 12/12/2010 MADL [employer] THREAD GRINDER OPERATOR, ETELVINA L 729.5 Arm Pain 12/12/2010 MADL [employer] TH[employer] GRINDER OPERATOR, ETELVINA L 719.40 Pain In Joint Site Unspecified 12/12/2010 MADL [employer] GRINDER OPERATOR, ETELVINA L 724.5 Back Pain, General 12/12/2010 MADL [employer] TH[employer] GRINDER OPERATOR, ETELVINA L 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 12/12/2010 MADL PRECISION THREAD GRINDER OPERATOR, ETELVINA L 729.5 Arm Pain 12/12/2010 MADL PRECISION THREAD GRINDER OPERATOR, ETELVINA L 719.40 Pain In Joint Site Unspecified 12/12/2010 MADL PRECISION THREAD GRINDER OPERATOR, ETELVINA L 724.5 Back Pain, General 12/12/2010 MADL PRECISION THREAD GRINDER OPERATOR, ETELVINA L 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 12/12/2010 MADL PRECISION THREAD GRINDER OPERATOR, ETELVINA L 729.5 Arm Pain 12/12/2010 MADL PRECISION THREAD GRINDER OPERATOR, ETELVINA L 719.40 Pain In Joint Site Unspecified 12/12/2010 MADL PRECISION THREAD GRINDER OPERATOR, ETELVINA L 724.5 Back Pain, General 12/12/2010 MADL PRECISION THREAD GRINDER OPERATOR, ETELVINA L 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 12/12/2010 MADL PRECISION THREAD GRINDER OPERATOR, ETELVINA L 729.5 Arm Pain 12/12/2010 MADL PRECISION THREAD GRINDER OPERATOR, ETELVINA L 719.40 Pain In Joint Site Unspecified 12/12/2010 MADL PRECISION THREAD GRINDER OPERATOR, ETELVINA L 724.5 Back Pain, General 12/12/2010 MADL PRECISION THREAD GRINDER OPERATOR, ETELVINA L 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 12/12/2010 MADL PRECISION THREAD GRINDER OPERATOR, ETELVINA L 729.5 Arm Pain 12/12/2010 SALGUERO DO, LADONNA K 719.40 Pain In Joint Site Unspecified 12/12/2010 SALGUERO DO, LADONNA K 724.5 Back Pain, General 12/12/2010 SALGUERO DO LADONNA K 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 12/12/2010 SALGUERO DO LADONNA K 729.5 Arm Pain 12/12/2010 SALGUERO DO, LADONNA K 719.40 Pain In Joint Site Unspecified 12/12/2010 SALGUERO DO, LADONNA K 724.5 Back Pain, General 12/12/2010 SALGUERO DO LADONNA K 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 12/12/2010 SALGUERO DO, LADONNA K 729.5 Arm Pain 12/12/2010 MADL PRECISION THREAD GRINDER OPERATOR, ETELVINA L 719.40 Pain In Joint Site Unspecified 12/12/2010 MADL PRECISION THREAD GRINDER OPERATOR, ETELVINA L 724.5 Back Pain, General 12/12/2010 MADL PRECISION THREAD GRINDER OPERATOR, ETELVINA L 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 12/12/2010 MADL PRECISION THREAD GRINDER OPERATOR, ETELVINA L 729.5 Arm Pain 12/12/2010 SALGUERO DO, LADONNA K 719.40 Pain In Joint Site Unspecified 12/12/2010 SALGUERO DO, LADONNA K 724.5 Back Pain, General 12/12/2010 SALGUERO DO, LADONNA K 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 12/12/2010 SALGUERO DO, LADONNA K 729.5 Arm Pain 12/12/2010 MADL PRECISION THREAD GRINDER OPERATOR, ETELVINA L 719.40 Pain In Joint Site Unspecified 12/12/2010 MADL PRECISION THREAD GRINDER OPERATOR, ETELVINA L 724.5 Back Pain, General 12/12/2010 MADL PRECISION THREAD GRINDER OPERATOR, ETELVINA L 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 12/12/2010 MADL PRECISION THREAD GRINDER OPERATOR, ETELVINA L 729.5 Arm Pain 01/22/2011 [...] MD V68.1 ISSUE OF REPEAT PRESCRIPTIONS 06/17/2011 TERE SALGUERO DOA K V68.1 ISSUE OF REPEAT PRESCRIPTIONS 06/17/2011 [...] K V68.1 ISSUE OF REPEAT PRESCRIPTIONS 06/17/2011 MADMaxine PRECISION THREAD GRINDER OPERATORHAMMAD BowserA L V68.1 ISSUE OF REPEAT PRESCRIPTIONS 06/17/2011 MADL PRECISION THREAD GRINDER OPERATOR, ETELVINA L V68.1 ISSUE OF REPEAT PRESCRIPTIONS 06/17/2011 MADL PRECISION THREAD GRINDER OPERATOR, ETELVINA L V68.1 ISSUE OF REPEAT PRESCRIPTIONS 06/17/2011 LADONNA SALGUERO DO K V68.1 ISSUE OF REPEAT PRESCRIPTIONS 06/17/2011 SALGUERO TERE PRAKASHA K V68.1 ISSUE OF REPEAT PRESCRIPTIONS 06/17/2011 MADL PRECISION THREAD GRINDER OPERATOR, ETELVINA L V68.1 ISSUE OF REPEAT PRESCRIPTIONS 06/17/2011 MADL PRECISION THREAD GRINDER OPERATOR, ETELVINA L V68.1 ISSUE OF REPEAT PRESCRIPTIONS 06/17/2011 MADL PRECISION THREAD GRINDER OPERATOR, ETELVINA L V68.1 ISSUE OF REPEAT PRESCRIPTIONS 06/17/2011 MADL PRECISION THREAD GRINDER OPERATOR, ETELVINA L V68.1 ISSUE OF REPEAT PRESCRIPTIONS 06/17/2011 MADL PRECISION THREAD GRINDER OPERATOR, ETELVINA L V68.1 ISSUE OF REPEAT PRESCRIPTIONS 06/17/2011 MADL PRECISION THREAD GRINDER OPERATOR, ETELVINA L V68.1 ISSUE OF REPEAT PRESCRIPTIONS 06/17/2011 MADL PRECISION THREAD GRINDER OPERATOR, ETELVINA L V68.1 ISSUE OF REPEAT PRESCRIPTIONS 06/17/2011 LADONNA SALGUERO DO K V68.1 ISSUE OF REPEAT PRESCRIPTIONS 06/17/2011 LADONNA SALGUERO DO K V68.1 ISSUE OF REPEAT PRESCRIPTIONS 06/17/2011 MADL PRECISION THREAD GRINDER OPERATOR, ETELVINA L V68.1 ISSUE OF REPEAT PRESCRIPTIONS 06/17/2011 LADONNA SALGUERO DO K V68.1 ISSUE OF REPEAT PRESCRIPTIONS 06/17/2011 HUGOL PRECISION THREAD GRINDER OPERATOR, ETELVINA L V68.1 ISSUE OF REPEAT PRESCRIPTIONS 07/10/2011 Ot 250.00 07/10/2011 Ot 272.4 07/10/2011 Ot 278.03 07/10/2011 Ot 300.4 07/10/2011 Ot 305.1 07/10/2011 Ot 414.01 07/10/2011 Ot 424.1 07/10/2011 Ot 426.3 07/10/2011 Ot 491.21 07/10/2011 Ot V45.82 07/10/2011 Ot V85.41 07/14/2011 Ot 250.00 DIAB MELVA WO COMPL, TYPE II OR UNSPEC TY 07/14/2011 Ot 414.01 CORONARY ATHEROSCLEROSIS OF [place] CORON 07/14/2011 Ot 496 CHR AIRWAY OBSTRUCT NEC 07/14/2011 Ot 599.0 URIN TRACT INFECTION NOS 07/14/2011 Ot 724.5 BACKACHE NOS 07/14/2011 Ot 787.01 NAUSEA WITH VOMITING 07/31/2011 SUSHANT MORA APRNA S V04.81 Flu Dx (3 Yrs And Above, Im) 07/31/2011 V04.81 Flu Dx (3 Yrs And Above, Im) 07/31/2011 MORGAN HARRIS, LAURIE S V04.81 Flu Dx (3 Yrs And Above, Im) 07/31/2011 SUSHANT MORA APRNA S V04.81 Flu Dx (3 Yrs And [...] (3 Yrs And Above, Im) 07/31/2011 MADL PRECISION THREAD GRINDER OPERATOR, ETELVINA L V04.81 Flu Dx (3 Yrs And Above, Im) 07/31/2011 MADL PRECISION THREAD GRINDER OPERATOR, ETELVINA L V04.81 Flu Dx (3 Yrs And Above, Im) 07/31/2011 MADL PRECISION THREAD GRINDER OPERATOR, ETELVINA L V04.81 Flu Dx (3 Yrs And Above, Im) 07/31/2011 SALGUERO DO, LADONNA K V04.81 Flu Dx (3 Yrs And Above, Im) 07/31/2011 SALGUERO DO, LADONNA K V04.81 Flu Dx (3 Yrs And Above, Im) 07/31/2011 MADL PRECISION THREAD GRINDER OPERATOR, ETELVINA L V04.81 Flu Dx (3 Yrs And Above, Im) 07/31/2011 MADL PRECISION THREAD GRINDER OPERATOR, ETELVINA L V04.81 Flu Dx (3 Yrs And Above, Im) 07/31/2011 MADL PRECISION THREAD GRINDER OPERATOR, ETELVINA L V04.81 Flu Dx (3 Yrs And Above, Im) 07/31/2011 MADL PRECISION THREAD GRINDER OPERATOR, ETELVINA L V04.81 Flu Dx (3 Yrs And Above, Im) 07/31/2011 MADL PRECISION THREAD GRINDER OPERATOR, ETELVINA L V04.81 Flu Dx (3 Yrs And Above, Im) 07/31/2011 MADL PRECISION THREAD GRINDER OPERATOR, ETELVINA L V04.81 Flu Dx (3 Yrs And Above, Im) 07/31/2011 MADL PRECISION THREAD GRINDER OPERATOR, ETELVINA L V04.81 Flu Dx (3 Yrs And Above, Im) 07/31/2011 SALGUERO DO, LADONNA K V04.81 Flu Dx (3 Yrs And Above, Im) 07/31/2011 SALGUERO DO, LADONNA K V04.81 Flu Dx (3 Yrs And Above, Im) 07/31/2011 MADL PRECISION THREAD GRINDER OPERATOR, ETELVINA L V04.81 Flu Dx (3 Yrs And Above, Im) 07/31/2011 SALGUERO DO, LADONNA K V04.81 Flu Dx (3 Yrs And Above, Im) 07/31/2011 MADL PRECISION THREAD GRINDER OPERATOR, ETELVINA L V04.81 Flu Dx (3 Yrs And Above, Im) 08/27/2011 MORGAN PRECISION THREAD GRINDER OPERATOR, LAURIE S 780.50 SLEEP DISTURBANCE, UNSPECIFIED 08/27/2011 780.50 Sleep Disturbance, Unspecified 08/27/2011 MORGAN PRECISION THREAD GRINDER OPERATOR, LAURIE S 780.50 Sleep Disturbance, Unspecified 08/27/2011 MORGAN PRECISION THREAD GRINDER OPERATOR, LAURIE S 780.50 Sleep Disturbance, Unspecified [...] K 780.50 Sleep Disturbance, Unspecified 08/27/2011 MADL PRECISION THREAD GRINDER OPERATOR, ETELVINA L 780.50 Sleep Disturbance, Unspecified 08/27/2011 MADL PRECISION THREAD GRINDER OPERATOR, ETELVINA L 780.50 Sleep Disturbance, Unspecified 08/27/2011 MADL PRECISION THREAD GRINDER OPERATOR, ETELVINA L 780.50 Sleep Disturbance, Unspecified 08/27/2011 SALGUERO DO, LADONNA K 780.50 Sleep Disturbance, Unspecified 08/27/2011 SALGUERO DO, LADONNA K 780.50 Sleep Disturbance, Unspecified 08/27/2011 MADL PRECISION THREAD GRINDER OPERATOR, ETELVINA L 780.50 Sleep Disturbance, Unspecified 08/27/2011 MADL PRECISION THREAD GRINDER OPERATOR, ETELVINA L 780.50 Sleep Disturbance, Unspecified 08/27/2011 MADL PRECISION THREAD GRINDER OPERATOR, ETELVINA L 780.50 Sleep Disturbance, Unspecified 08/27/2011 MADL PRECISION THREAD GRINDER OPERATOR, ETELVINA L 780.50 Sleep Disturbance, Unspecified 08/27/2011 MADL PRECISION THREAD GRINDER OPERATOR, ETELVINA L 780.50 Sleep Disturbance, Unspecified 08/27/2011 MADL PRECISION THREAD GRINDER OPERATOR, ETELVINA L 780.50 Sleep Disturbance, Unspecified 08/27/2011 MADL PRECISION THREAD GRINDER OPERATOR, ETELVINA L 780.50 Sleep Disturbance, Unspecified 08/27/2011 SALGUERO DO, LADONNA K 780.50 Sleep Disturbance, Unspecified 08/27/2011 SALGUERO DO, LADONNA K 780.50 Sleep Disturbance, Unspecified 08/27/2011 MADL PRECISION THREAD GRINDER OPERATOR, ETELVINA L 780.50 Sleep Disturbance, Unspecified 08/27/2011 SALGUERO DO, LADONNA K 780.50 Sleep Disturbance, Unspecified 08/27/2011 MADL PRECISION THREAD GRINDER OPERATOR, ETELVINA L 780.50 Sleep Disturbance, Unspecified 09/26/2011 MORGAN PRECISION THREAD GRINDER OPERATOR, LAURIE S 788.41 URINARY FREQUENCY 09/26/2011 MORGAN PRECISION THREAD GRINDER OPERATOR, LAURIE S 788.63 URINARY URGENCY 09/26/2011 788.41 Urinary Frequency 09/26/2011 788.63 Urinary Urgency 09/26/2011 MORGAN PRECISION THREAD GRINDER OPERATOR, LAURIE S 788.41 Urinary Frequency 09/26/2011 MORGAN PRECISION THREAD GRINDER OPERATOR, LAURIE S 788.63 Urinary Urgency 09/26/2011 MORGAN PRECISION THREAD GRINDER OPERATOR, LAURIE S 788.41 Urinary Frequency 09/26/2011 MORGAN PRECISION THREAD GRINDER OPERATOR, LAURIE S 788.63 Urinary Urgency 09/26/2011 [...] LADONNA K 788.63 Urinary Urgency 09/26/2011 MADL PRECISION THREAD GRINDER OPERATOR, ETELVINA L 788.41 Urinary Frequency 09/26/2011 MADL PRECISION THREAD GRINDER OPERATOR, ETELVINA L 788.63 Urinary Urgency 09/26/2011 MADL PRECISION THREAD GRINDER OPERATOR, ETELVINA L 788.41 Urinary Frequency 09/26/2011 MADL PRECISION THREAD GRINDER OPERATOR, ETELVINA L 788.63 Urinary Urgency 09/26/2011 MADL PRECISION THREAD GRINDER OPERATOR, ETELVINA L 788.41 Urinary Frequency 09/26/2011 MADL PRECISION THREAD GRINDER OPERATOR, ETELVINA L 788.63 Urinary Urgency 09/26/2011 SALGUERO DO, LADONNA K 788.41 Urinary Frequency 09/26/2011 SALGUERO DO, LADONNA K 788.63 Urinary Urgency 09/26/2011 SALGUERO DO, LADONNA K 788.41 Urinary Frequency 09/26/2011 SALGUERO DO, LADONNA K 788.63 Urinary Urgency 09/26/2011 MADL PRECISION THREAD GRINDER OPERATOR, ETELVINA L 788.41 Urinary Frequency 09/26/2011 MADL PRECISION THREAD GRINDER OPERATOR, ETELVINA L 788.63 Urinary Urgency 09/26/2011 MADL PRECISION THREAD GRINDER OPERATOR, ETELVINA L 788.41 Urinary Frequency 09/26/2011 MADL PRECISION THREAD GRINDER OPERATOR, ETELVINA L 788.63 Urinary Urgency 09/26/2011 MADL PRECISION THREAD GRINDER OPERATOR, ETELVINA L 788.41 Urinary Frequency 09/26/2011 MADL PRECISION THREAD GRINDER OPERATOR, ETELVINA L 788.63 Urinary Urgency 09/26/2011 MADL PRECISION THREAD GRINDER OPERATOR, ETELVINA L 788.41 Urinary Frequency 09/26/2011 MADL PRECISION THREAD GRINDER OPERATOR, ETELVINA L 788.63 Urinary Urgency 09/26/2011 MADL PRECISION THREAD GRINDER OPERATOR, ETELVINA L 788.41 Urinary Frequency 09/26/2011 MADL PRECISION THREAD GRINDER OPERATOR, ETELVINA L 788.63 Urinary Urgency 09/26/2011 MADL PRECISION THREAD GRINDER OPERATOR, ETELVINA L 788.41 Urinary Frequency 09/26/2011 MADL PRECISION THREAD GRINDER OPERATOR, ETELVINA L 788.63 Urinary Urgency 09/26/2011 MADL PRECISION THREAD GRINDER OPERATOR, ETELVINA L 788.41 Urinary Frequency 09/26/2011 MADL PRECISION THREAD GRINDER OPERATOR, ETELVINA L 788.63 Urinary Urgency 09/26/2011 SALGUERO DO, LADONNA K 788.41 Urinary Frequency 09/26/2011 SALGUERO DO, LADONNA K 788.63 Urinary Urgency 09/26/2011 SALGUERO DO, LADONNA K 788.41 Urinary Frequency 09/26/2011 SALGUERO DO, LADONNA K 788.63 Urinary Urgency 09/26/2011 MADL PRECISION THREAD GRINDER OPERATOR, ETELVINA L 788.41 Urinary Frequency 09/26/2011 MADL PRECISION THREAD GRINDER OPERATOR, ETELVINA L 788.63 Urinary Urgency 09/26/2011 SALGUERO DO, LADONNA K 788.41 Urinary Frequency 09/26/2011 SALGUERO DO, LADONNA K 788.63 Urinary Urgency 09/26/2011 MADL PRECISION THREAD GRINDER OPERATOR, ETELVINA L 788.41 Urinary Frequency 09/26/2011 MADL PRECISION THREAD GRINDER OPERATOR, ETELVINA L 788.63 Urinary Urgency 10/18/2011 MORGAN HARRIS LAURIE S V65.42 COUNSELING - SMOKING CESSATION 10/18/2011 V65.42 Counseling - Smoking Cessation 10/18/2011 SUSHANT MORA APRNA S V65.42 Counseling - Smoking Cessation 10/18/2011 MORGAN HARRIS LAURIE S V65.42 Counseling - Smoking Cessation 10/18/2011 AMADO OLVERA, ROMELIA V65.42 Counseling - Smoking Cessation 10/18/2011 BYORN BOSS MD V65.42 Counseling - Smoking Cessation [...] L V65.42 Counseling - Smoking Cessation 10/18/2011 AISHA HARRIS ETELVINA L V65.42 Counseling - Smoking Cessation 10/18/2011 HUGO PRECISION THREAD GRINDER OPERATOR ETELVINA L V65.42 Counseling - Smoking Cessation 10/18/2011 NOEMY PRAKASH LADONNA K V65.42 Counseling - Smoking Cessation 10/18/2011 NOEMY DO LADONNA K V65.42 Counseling - Smoking Cessation 10/18/2011 AISHA HARRIS ETELVINA L V65.42 Counseling - Smoking Cessation 10/18/2011 AISHA HARRIS ETELVINA L V65.42 Counseling - Smoking Cessation 10/18/2011 AISHA HARRISANDREZETELVINA L V65.42 Counseling - Smoking Cessation 10/18/2011 HUGO KIMBERLY ETELVINA L V65.42 Counseling - Smoking Cessation 10/18/2011 HUGO KIMBERLY ETELVINA L V65.42 Counseling - Smoking Cessation 10/18/2011 HUGO PRECISION THREAD GRINDER OPERATOR ETELVINA L V65.42 Counseling - Smoking Cessation 10/18/2011 HUGO KIMBERLY ETELVINA L V65.42 Counseling - Smoking Cessation 10/18/2011 NOEMY PRAKASH LADONNA K V65.42 Counseling - Smoking Cessation 10/18/2011 NOEMY PRAKASHTEREA K V65.42 Counseling - Smoking Cessation 10/18/2011 HUGO KIMBERLY ETELVINA L V65.42 Counseling - Smoking Cessation 10/18/2011 [...] PAIN 11/11/2011 Ot 414.01 CORONARY ATHEROSCLEROSIS OF [place] CORON 11/11/2011 Ot 424.1 AORTIC VALVE DISORDER 11/11/2011 Ot 426.3 LEFT BB BLOCK NEC 11/11/2011 Ot 496 CHR AIRWAY OBSTRUCT NEC 11/11/2011 Ot 530.81 ESOPHAGEAL REFLUX 11/11/2011 Ot 786.59 CHEST PAIN NEC 11/11/2011 Ot V45.82 PERCUTANEOUS TRANSLUM CORON ANGIOPLASTY 11/11/2011 Ot V46.2 SUPPLEMENTAL OXYGEN 11/11/2011 Ot V58.63 LONG-TERM(CURRENT)USE OF ANTIPLATELET/AN 11/11/2011 Ot V58.69 OTH MED,LT,CURRENT USE 11/11/2011 Ot V85.41 BODY MASS INDEX 40.0-44.9, ADULT 12/04/2011 LAURIE MORA APRN S 461.9 SINUSITIS ACUTE 12/04/2011 461.9 Sinusitis Acute 12/04/2011 LAURIE MORA APRN 461.9 Sinusitis Acute 12/04/2011 LAURIE MORA APRN [...] BYRON BOSS MD 461.9 Sinusitis Acute 12/04/2011 BRANNON BOSS MDA M 461.9 Sinusitis Acute 12/04/2011 SALGUERO DO, LADONNA K 461.9 Sinusitis Acute 12/04/2011 SALGUERO DO, LADONNA K 461.9 Sinusitis Acute 12/04/2011 SALGUERO DO, LADONNA K 461.9 Sinusitis Acute 12/04/2011 SALGUERO DO, LADONNA K 461.9 Sinusitis Acute 12/04/2011 MADL PRECISION THREAD GRINDER OPERATOR, ETELVINA L 461.9 Sinusitis Acute 12/04/2011 MADL PRECISION THREAD GRINDER OPERATOR, ETELVINA L 461.9 Sinusitis Acute 12/04/2011 MADL PRECISION THREAD GRINDER OPERATOR, ETELVINA L 461.9 Sinusitis Acute 12/04/2011 SALGUERO DO, LADONNA K 461.9 Sinusitis Acute 12/04/2011 SALGUERO DO, LADONNA K 461.9 Sinusitis Acute 12/04/2011 MADL PRECISION THREAD GRINDER OPERATOR, ETELVINA L 461.9 Sinusitis Acute 12/04/2011 MADL PRECISION THREAD GRINDER OPERATOR, ETELVINA L 461.9 Sinusitis Acute 12/04/2011 MADL PRECISION THREAD GRINDER OPERATOR, ETELVINA L 461.9 Sinusitis Acute 12/04/2011 MADL PRECISION THREAD GRINDER OPERATOR, ETELVINA L 461.9 Sinusitis Acute 12/04/2011 MADL PRECISION THREAD GRINDER OPERATOR, ETELVINA L 461.9 Sinusitis Acute 12/04/2011 MADL PRECISION THREAD GRINDER OPERATOR, ETELVINA L 461.9 Sinusitis Acute 12/04/2011 MADL PRECISION THREAD GRINDER OPERATOR, ETELVINA L 461.9 Sinusitis Acute 12/04/2011 SALGUERO DO, LADONNA K 461.9 Sinusitis Acute 12/04/2011 SALGUERO DO, LADONNA K 461.9 Sinusitis Acute 12/04/2011 MADL PRECISION THREAD GRINDER OPERATOR, ETELVINA L 461.9 Sinusitis Acute 12/04/2011 SALGUERO DO, LADONNA K 461.9 Sinusitis Acute 12/04/2011 MADL PRECISION THREAD GRINDER OPERATOR, ETELVINA L 461.9 Sinusitis Acute 12/19/2011 MORGAN PRECISION THREAD GRINDER OPERATOR, LAURIE S 486 PNEUMONIA UNSPECIFIED 12/19/2011 MORGAN PRECISION THREAD GRINDER OPERATOR, LAURIE S 786.2 COUGH 12/19/2011 486 Pneumonia Unspecified 12/19/2011 786.2 Cough 12/19/2011 MORGAN PRECISION THREAD GRINDER OPERATOR, LAURIE S 486 Pneumonia Unspecified 12/19/2011 MORGAN PRECISION THREAD GRINDER OPERATOR, LAURIE S 786.2 Cough 12/19/2011 MORGAN PRECISION THREAD GRINDER OPERATOR, LAURIE S 486 Pneumonia Unspecified 12/19/2011 MORGAN PRECISION THREAD GRINDER OPERATOR, LAURIE S 786.2 Cough 12/19/2011 ROMELIA FISCHER MD 486 Pneumonia Unspecified 12/19/2011 AMADO OLVERA, ROMELIA 786.2 Cough 12/19/2011 BYRON BOSS MD 486 [...] BYRON BOSS MD 486 Pneumonia Unspecified 12/19/2011 BYORN BOSS MD 786.2 Cough 12/19/2011 SALGUERO DO, LADONNA K 486 Pneumonia Unspecified 12/19/2011 SALGUERO DO, LADONNA K 786.2 Cough 12/19/2011 BYRON BOSS MD 486 Pneumonia Unspecified 12/19/2011 BYRON BOSS MD 786.2 Cough 12/19/2011 SALGUERO DO, LADONNA K 486 Pneumonia Unspecified 12/19/2011 SALGUERO DO, LADONNA K 786.2 Cough 12/19/2011 BRYON BOSS MD 486 Pneumonia Unspecified 12/19/2011 BYRON [...] DO, LADONNA K 786.2 Cough 12/19/2011 MADL PRECISION THREAD GRINDER OPERATOR, ETELVINA L 486 Pneumonia Unspecified 12/19/2011 MADL PRECISION THREAD GRINDER OPERATOR, ETELVINA L 786.2 Cough 12/19/2011 MADL PRECISION THREAD GRINDER OPERATOR, ETELVINA L 486 Pneumonia Unspecified 12/19/2011 MADL PRECISION THREAD GRINDER OPERATOR, ETELVINA L 786.2 Cough 12/19/2011 MADL PRECISION THREAD GRINDER OPERATOR, ETELVINA L 486 Pneumonia Unspecified 12/19/2011 MADL PRECISION THREAD GRINDER OPERATOR, ETELVINA L 786.2 Cough 12/19/2011 SALGUERO DO, LADONNA K 486 Pneumonia Unspecified 12/19/2011 SALGUERO DO, LADONNA K 786.2 Cough 12/19/2011 SALGUERO DO, LADONNA K 486 Pneumonia Unspecified 12/19/2011 SALGUERO DO, LADONNA K 786.2 Cough 12/19/2011 MADL PRECISION THREAD GRINDER OPERATOR, ETELVINA L 486 Pneumonia Unspecified 12/19/2011 MADL PRECISION THREAD GRINDER OPERATOR, ETELVINA L 786.2 Cough 12/19/2011 MADL PRECISION THREAD GRINDER OPERATOR, ETELVINA L 486 Pneumonia Unspecified 12/19/2011 MADL PRECISION THREAD GRINDER OPERATOR, ETELVINA L 786.2 Cough 12/19/2011 MADL PRECISION THREAD GRINDER OPERATOR, ETELVINA L 486 Pneumonia Unspecified 12/19/2011 MADL PRECISION THREAD GRINDER OPERATOR, ETELVINA L 786.2 Cough 12/19/2011 MADL PRECISION THREAD GRINDER OPERATOR, ETELVINA L 486 Pneumonia Unspecified 12/19/2011 MADL PRECISION THREAD GRINDER OPERATOR, ETELVINA L 786.2 Cough 12/19/2011 MADL PRECISION THREAD GRINDER OPERATOR, ETELVINA L 486 Pneumonia Unspecified 12/19/2011 MADL PRECISION THREAD GRINDER OPERATOR, ETELVINA L 786.2 Cough 12/19/2011 MADL PRECISION THREAD GRINDER OPERATOR, ETELVINA L 486 Pneumonia Unspecified 12/19/2011 MADL PRECISION THREAD GRINDER OPERATOR, ETELVINA L 786.2 Cough 12/19/2011 MADL PRECISION THREAD GRINDER OPERATOR, ETELVINA L 486 Pneumonia Unspecified 12/19/2011 MADL PRECISION THREAD GRINDER OPERATOR, ETELVINA L 786.2 Cough 12/19/2011 SALGUERO DO, LADONNA K 486 Pneumonia Unspecified 12/19/2011 SALGUERO DO, LADONNA K 786.2 Cough 12/19/2011 SALGUERO DO, LADONNA K 486 Pneumonia Unspecified 12/19/2011 SALGUERO DO, LADONNA K 786.2 Cough 12/19/2011 MADL PRECISION THREAD GRINDER OPERATOR, ETELVINA L 486 Pneumonia Unspecified 12/19/2011 MADL PRECISION THREAD GRINDER OPERATOR, ETELVINA L 786.2 Cough 12/19/2011 SALGUERO DO, LADONNA K 486 Pneumonia Unspecified 12/19/2011 SALGUERO DO, LADONNA K 786.2 Cough 12/19/2011 MADL PRECISION THREAD GRINDER OPERATOR, ETELVINA L 486 Pneumonia Unspecified 12/19/2011 MADL PRECISION THREAD GRINDER OPERATOR, ETELVINA L 786.2 Cough 01/06/2012 MORGAN HARRIS LAURIE S 491.9 BRONCHITIS, CHRONIC UNSPEC 01/06/2012 PALOMA MORA APRNNDA S 780.79 MALAISE AND FATIGUE 01/06/2012 491.9 Bronchitis, Chronic Unspec 01/06/2012 780.79 Malaise And Fatigue 01/06/2012 MORGAN PRECISION THREAD GRINDER OPERATOR, LAURIE S 491.9 Bronchitis, Chronic Unspec 01/06/2012 MORGAN PRECISION THREAD GRINDER OPERATOR, LAURIE S 780.79 Malaise And Fatigue 01/06/2012 MORGAN HARRIS LAURIE S 491.9 Bronchitis, Chronic Unspec 01/06/2012 MORGAN PRECISION THREAD GRINDER OPERATOR, LAURIE S 780.79 Malaise And Fatigue [...] Unspec 01/06/2012 780.79 Malaise And Fatigue 01/06/2012 KARYN OLVERA, BYRON Patricia1.9 Bronchitis, Chronic Unspec 01/06/2012 KARYN OLVERA, BYRON Bruner 780.79 Malaise And Fatigue 01/06/2012 KARYN OLVERA, BYRON Bruner 491.9 Bronchitis, Chronic Unspec 01/06/2012 BYRON BOSS MD 780.79 Malaise And Fatigue 01/06/2012 SALGUERO DOLADONNA 491.9 Bronchitis, Chronic Unspec 01/06/2012 SALGUERO DO LADONNA K 780.79 Malaise And Fatigue 01/06/2012 KARYN OLVERA, BYRON Patricia1.9 Bronchitis, Chronic Unspec 01/06/2012 KARYN OLVERA, BYRON Bruner 780.79 Malaise And Fatigue 01/06/2012 SALGUERO DO LADONNA K 491.9 Bronchitis, Chronic Unspec 01/06/2012 SALGUERO DO LADONNA K 780.79 Malaise And Fatigue 01/06/2012 BYRON BOSS MD1.9 Bronchitis, Chronic Unspec 01/06/2012 BYRON BOSS MD 780.79 Malaise And Fatigue 01/06/2012 BYRON BOSS MD1.9 Bronchitis, Chronic Unspec 01/06/2012 BYRON BOSS MD [...] K 780.79 Malaise And Fatigue 01/06/2012 MADL PRECISION THREAD GRINDER OPERATOR, ETELVINA L 491.9 Bronchitis, Chronic Unspec 01/06/2012 MADL PRECISION THREAD GRINDER OPERATOR, ETELVINA L 780.79 Malaise And Fatigue 01/06/2012 MADL PRECISION THREAD GRINDER OPERATOR, ETELVINA L 491.9 Bronchitis, Chronic Unspec 01/06/2012 MADL PRECISION THREAD GRINDER OPERATOR, ETELVINA L 780.79 Malaise And Fatigue 01/06/2012 MADL PRECISION THREAD GRINDER OPERATOR, ETELVINA L 491.9 Bronchitis, Chronic Unspec 01/06/2012 MADL PRECISION THREAD GRINDER OPERATOR, ETELVINA L 780.79 Malaise And Fatigue 01/06/2012 SALGUERO DO, LADONNA K 491.9 Bronchitis, Chronic Unspec 01/06/2012 SALGUERO DO, LADONNA K 780.79 Malaise And Fatigue 01/06/2012 SALGUERO DO, LADONNA K 491.9 Bronchitis, Chronic Unspec 01/06/2012 SALGUERO DO, LADONNA K 780.79 Malaise And Fatigue 01/06/2012 MADL PRECISION THREAD GRINDER OPERATOR, ETELVINA L 491.9 Bronchitis, Chronic Unspec 01/06/2012 MADL PRECISION THREAD GRINDER OPERATOR, ETELVINA L 780.79 Malaise And Fatigue 01/06/2012 MADL PRECISION THREAD GRINDER OPERATOR, ETELVINA L 491.9 Bronchitis, Chronic Unspec 01/06/2012 MADL PRECISION THREAD GRINDER OPERATOR, ETELVINA L 780.79 Malaise And Fatigue 01/06/2012 MADL PRECISION THREAD GRINDER OPERATOR, ETELVINA L 491.9 Bronchitis, Chronic Unspec 01/06/2012 MADL PRECISION THREAD GRINDER OPERATOR, ETELVINA L 780.79 Malaise And Fatigue 01/06/2012 MADL PRECISION THREAD GRINDER OPERATOR, ETELVINA L 491.9 Bronchitis, Chronic Unspec 01/06/2012 MADL PRECISION THREAD GRINDER OPERATOR, ETELVINA L 780.79 Malaise And Fatigue 01/06/2012 MADL PRECISION THREAD GRINDER OPERATOR, ETELVINA L 491.9 Bronchitis, Chronic Unspec 01/06/2012 MADL PRECISION THREAD GRINDER OPERATOR, ETELVINA L 780.79 Malaise And Fatigue 01/06/2012 MADL PRECISION THREAD GRINDER OPERATOR, ETELVINA L 491.9 Bronchitis, Chronic Unspec 01/06/2012 MADL PRECISION THREAD GRINDER OPERATOR, ETELVINA L 780.79 Malaise And Fatigue 01/06/2012 MADL PRECISION THREAD GRINDER OPERATOR, ETELVINA L 491.9 Bronchitis, Chronic Unspec 01/06/2012 MADL PRECISION THREAD GRINDER OPERATOR, ETELVINA L 780.79 Malaise And Fatigue 01/06/2012 SALGUERO DO, LADONNA K 491.9 Bronchitis, Chronic Unspec 01/06/2012 SALGUERO DOTEREA K 780.79 Malaise And Fatigue 01/06/2012 SALGUERO DO, LADONNA K 491.9 Bronchitis, Chronic Unspec 01/06/2012 SALGUERO DO, LADONNA K 780.79 Malaise And Fatigue 01/06/2012 HUGOL PRECISION THREAD GRINDER OPERATOR ETELVINA L 491.9 Bronchitis, Chronic Unspec 01/06/2012 MADL PRECISION THREAD GRINDER OPERATOR ETELVINA L 780.79 Malaise And Fatigue 01/06/2012 SALGUERO DO LADONNA K 491.9 Bronchitis, Chronic Unspec 01/06/2012 SALGUERO DO, LADONNA K 780.79 Malaise And Fatigue 01/06/2012 HUGOL [employer]CISION THREAD GRINDER OPERATOR ETELVINA L 491.9 Bronchitis, Chronic Unspec 01/06/2012 HUGOL PRECISION THREAD GRINDER OPERATOR ETELVINA L 780.79 Malaise And Fatigue [...] NOS 01/30/2012 Ot 414.01 CORONARY ATHEROSCLEROSIS OF [place] CORON 01/30/2012 Ot 424.1 AORTIC VALVE DISORDER 01/30/2012 Ot 426.3 LEFT BB BLOCK NEC 01/30/2012 Ot 472.0 CHRONIC RHINITIS 01/30/2012 Ot 493.20 CHRONIC OBSTRUCTIVE ASTHMA, NOS 01/30/2012 Ot 530.81 ESOPHAGEAL REFLUX 01/30/2012 Ot 593.9 RENAL URETERAL DIS NOS 01/30/2012 Ot 596.51 HYPERTONICITY OF BLADDER 01/30/2012 Ot 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 01/30/2012 Ot 625.6 FEM STRESS INCONTINENCE 01/30/2012 Ot E944.4 ADV EFF DIURETICS NEC 01/30/2012 Ot V45.82 PERCUTANEOUS TRANSLUM CORON ANGIOPLASTY 01/30/2012 Ot V58.63 LONG-TERM(CURRENT)USE OF ANTIPLATELET/AN 01/30/2012 Ot V58.69 OTH MED,LT,CURRENT USE 01/30/2012 Ot V85.36 BODY MASS INDEX 36.0-36.9, ADULT 02/02/2012 Ot 250.00 DIAB MELVA WO COMPL, TYPE II OR UNSPEC TY 02/02/2012 Ot 272.4 HYPERLIPIDEMIA NEC/NOS 02/02/2012 Ot 276.8 HYPOPOTASSEMIA 02/02/2012 Ot 305.1 TOBACCO USE DISORDER 02/02/2012 Ot 414.01 CORONARY ATHEROSCLEROSIS OF [place] CORON 02/02/2012 Ot 458.9 HYPOTENSION NOS 02/02/2012 Ot 493.22 CHRONIC OBSTRUCTIVE ASTHMA, W (ACUTE) EX 02/02/2012 Ot 729.5 PAIN IN LIMB 02/02/2012 Ot 729.81 SWELLING OF LIMB 02/02/2012 Ot 782.3 EDEMA 02/02/2012 Ot 787.20 DYSPHAGIA, UNSPECIFIED 02/02/2012 Ot 790.95 ELEVATED C-REACTIVE PROTEIN (CRP) 02/02/2012 Ot V45.82 PERCUTANEOUS TRANSLUM [...] Not Elsewhere Classified 02/04/2012 BYRON BOSS MD 72Hai.88 Rhabdomyolysis 02/04/2012 BYRON BOSS MD 995.1 Angioneurotic Edema Not Elsewhere Classified 02/04/2012 LADONNA SALGUERO DO 728.88 Rhabdomyolysis 02/04/2012 TERE SALGUERO DOA K 995.1 Angioneurotic Edema Not Elsewhere Classified 02/04/2012 BYRON BOSS MD 728.88 Rhabdomyolysis 02/04/2012 BYRON BOSS MD 995.1 Angioneurotic Edema Not Elsewhere Classified 02/04/2012 LADONNA SALGUERO DO K 728.88 Rhabdomyolysis 02/04/2012 TERE SALGUERO DOA K 995.1 Angioneurotic Edema Not Elsewhere Classified 02/04/2012 BYRON BOSS MD 728.88 Rhabdomyolysis 02/04/2012 BYRON BOSS MD 995.1 Angioneurotic Edema Not Elsewhere Classified 02/04/2012 BYRON BOSS MD 728.88 Rhabdomyolysis 02/04/2012 BYRON BOSS MD 995.1 Angioneurotic Edema Not Elsewhere Classified 02/04/2012 SALGUERO DO LADONNA K 728.88 Rhabdomyolysis 02/04/2012 SALGUERO DO LADONNA K 995.1 Angioneurotic Edema Not Elsewhere Classified 02/04/2012 SALGUERO TERE PRAKASHA K 728.88 Rhabdomyolysis 02/04/2012 SALGUERO DO LADONNA K 995.1 Angioneurotic Edema Not Elsewhere Classified 02/04/2012 SALGUERO DO LADONNA K 728.88 Rhabdomyolysis 02/04/2012 SALGUERO DO, LADONNA K 995.1 Angioneurotic Edema Not Elsewhere Classified 02/04/2012 SALGUERO DO, LADONNA K 728.88 Rhabdomyolysis 02/04/2012 SALGUERO DO, LADONNA K 995.1 Angioneurotic Edema Not Elsewhere Classified 02/04/2012 MADL PRECISION THREAD GRINDER OPERATOR, ETELVINA L 728.88 Rhabdomyolysis 02/04/2012 MADL PRECISION THREAD GRINDER OPERATOR, ETELVINA L 995.1 Angioneurotic Edema Not Elsewhere Classified 02/04/2012 MADL PRECISION THREAD GRINDER OPERATOR, ETELVINA L 728.88 Rhabdomyolysis 02/04/2012 MADL PRECISION THREAD GRINDER OPERATOR, ETELVINA L 995.1 Angioneurotic Edema Not Elsewhere Classified 02/04/2012 MADL PRECISION THREAD GRINDER OPERATOR, ETELVINA L 728.88 Rhabdomyolysis 02/04/2012 MADL PRECISION THREAD GRINDER OPERATOR, ETELVINA L 995.1 Angioneurotic Edema Not Elsewhere Classified 02/04/2012 SALGUERO DO, LADONNA K 728.88 Rhabdomyolysis 02/04/2012 SALGUERO DO, LADONNA K 995.1 Angioneurotic Edema Not Elsewhere Classified 02/04/2012 SALGUERO DO, LADONNA K 728.88 Rhabdomyolysis 02/04/2012 SALGUERO DO, LADONNA K 995.1 Angioneurotic Edema Not Elsewhere Classified 02/04/2012 MADL PRECISION THREAD GRINDER OPERATOR, ETELVINA L 728.88 Rhabdomyolysis 02/04/2012 MADL PRECISION THREAD GRINDER OPERATOR, ETELVINA L 995.1 Angioneurotic Edema Not Elsewhere Classified 02/04/2012 MADL PRECISION THREAD GRINDER OPERATOR, ETELVINA L 728.88 Rhabdomyolysis 02/04/2012 MADL PRECISION THREAD GRINDER OPERATOR, ETELVINA L 995.1 Angioneurotic Edema Not Elsewhere Classified 02/04/2012 MADL PRECISION THREAD GRINDER OPERATOR, ETEVLINA L 728.88 Rhabdomyolysis 02/04/2012 MADL PRECISION THREAD GRINDER OPERATOR, ETELVINA L 995.1 Angioneurotic Edema Not Elsewhere Classified 02/04/2012 MADL PRECISION THREAD GRINDER OPERATOR, ETELVINA L 728.88 Rhabdomyolysis 02/04/2012 MADL PRECISION THREAD GRINDER OPERATOR, ETELVINA L 995.1 Angioneurotic Edema Not Elsewhere Classified 02/04/2012 MADL PRECISION THREAD GRINDER OPERATOR, ETELVINA L 728.88 Rhabdomyolysis 02/04/2012 MADL PRECISION THREAD GRINDER OPERATOR, ETELVINA L 995.1 Angioneurotic Edema Not Elsewhere Classified 02/04/2012 MADL PRECISION THREAD GRINDER OPERATOR, ETELVINA L 728.88 Rhabdomyolysis 02/04/2012 MADL PRECISION THREAD GRINDER OPERATOR, ETELVINA L 995.1 Angioneurotic Edema Not Elsewhere Classified 02/04/2012 MADL PRECISION THREAD GRINDER OPERATOR, ETELVINA L 728.88 Rhabdomyolysis 02/04/2012 MADL PRECISION THREAD GRINDER OPERATOR, ETELVINA L 995.1 Angioneurotic Edema Not Elsewhere Classified 02/04/2012 SALGUERO DO, LADONNA K 728.88 Rhabdomyolysis 02/04/2012 SALGUERO DO, LADONNA K 995.1 Angioneurotic Edema Not Elsewhere Classified 02/04/2012 SALGUERO DO, LADONNA K 728.88 Rhabdomyolysis 02/04/2012 SALGUERO DO, LADONNA K 995.1 Angioneurotic Edema Not Elsewhere Classified 02/04/2012 MADL PRECISION THREAD GRINDER OPERATOR, ETELVINA L 728.88 Rhabdomyolysis 02/04/2012 MADL PRECISION THREAD GRINDER OPERATOR, ETELVINA L 995.1 Angioneurotic Edema Not Elsewhere Classified 02/04/2012 SALGUERO DO, LADONNA K 728.88 Rhabdomyolysis 02/04/2012 SALGUERO DO, LADONNA K 995.1 Angioneurotic Edema Not Elsewhere Classified 02/04/2012 MADL PRECISION THREAD GRINDER OPERATOR, ETELVINA L 728.88 Rhabdomyolysis 02/04/2012 MADL PRECISION THREAD GRINDER OPERATOR, ETELVINA L 995.1 Angioneurotic Edema Not Elsewhere Classified 02/06/2012 MORGAN HARRIS LAURIE S 782.3 EDEMA 02/06/2012 782.3 EDEMA 02/06/2012 MORGAN HARRIS LAURIE S 782.3 EDEMA 02/06/2012 MORGAN HARRIS LAURIE S 782.3 EDEMA 02/06/2012 ROMELIA FISCHER MD 782.3 EDEMA 02/06/2012 BYRON BOSS MD 782.3 EDEMA 02/06/2012 782.3 EDEMA 02/06/2012 782.3 EDEMA 02/06/2012 782.3 EDEMA 02/06/2012 782.3 EDEMA 02/06/2012 BYRON BOSS MD 782.3 EDEMA 02/06/2012 KARYN OLVERA, BYRON M 782.3 EDEMA 02/06/2012 SALGUERO DO, LADONNA K 782.3 EDEMA 02/06/2012 KARYN OLVERA, BYRON M 782.3 EDEMA 02/06/2012 SALGUERO DO, LADONNA K 782.3 EDEMA 02/06/2012 KARYN OLVERA, BYRON M 782.3 EDEMA 02/06/2012 KARYN OLVERA, BYRON M 782.3 EDEMA 02/06/2012 SALGUERO DO, LADONNA K 782.3 EDEMA 02/06/2012 SALGUERO DO, LADONNA K 782.3 EDEMA 02/06/2012 SALGUERO DO, LADONNA K 782.3 EDEMA 02/06/2012 SALGUERO DO, LADONNA K 782.3 EDEMA 02/06/2012 MADL PRECISION THREAD GRINDER OPERATOR, ETELVINA L 782.3 EDEMA 02/06/2012 MADL PRECISION THREAD GRINDER OPERATOR, ETELVINA L 782.3 EDEMA 02/06/2012 MADL PRECISION THREAD GRINDER OPERATOR, ETELVINA L 782.3 EDEMA 02/06/2012 SALGUERO DO, LADONNA K 782.3 EDEMA 02/06/2012 SALGUERO DO, LADONNA K 782.3 EDEMA 02/06/2012 MADL PRECISION THREAD GRINDER OPERATOR, ETELVINA L 782.3 EDEMA 02/06/2012 MADL PRECISION THREAD GRINDER OPERATOR, ETELVINA L 782.3 EDEMA 02/06/2012 MADL PRECISION THREAD GRINDER OPERATOR, ETELVINA L 782.3 EDEMA 02/06/2012 MADL PRECISION THREAD GRINDER OPERATOR, ETELVINA L 782.3 EDEMA 02/06/2012 MADL PRECISION THREAD GRINDER OPERATOR, ETELVINA L 782.3 EDEMA 02/06/2012 MADL PRECISION THREAD GRINDER OPERATOR, ETELVINA L 782.3 EDEMA 02/06/2012 MADL PRECISION THREAD GRINDER OPERATOR, ETELVINA L 782.3 EDEMA 02/06/2012 SALGUERO DO, LADONNA K 782.3 EDEMA 02/06/2012 SALGUERO DO, LADONNA K 782.3 EDEMA 02/06/2012 MADL PRECISION THREAD GRINDER OPERATOR, ETELVINA L 782.3 EDEMA 02/06/2012 SALGUERO DO, LADONNA K 782.3 EDEMA 02/06/2012 MADL PRECISION THREAD GRINDER OPERATOR, ETELVINA L 782.3 EDEMA 02/11/2012 MORGAN HUDSONN, LAURIE S 079.99 VIRAL SYNDROME 02/11/2012 079.99 Viral Syndrome 02/11/2012 MORGAN HARRIS, LAURIE S 079.99 Viral Syndrome 02/11/2012 MORGAN HARRIS, LAURIE S 079.99 Viral Syndrome 02/11/2012 AMADO OLVERA, ROMELIA 079.99 Viral Syndrome 02/11/2012 BYRON BOSS MD 079.99 Viral Syndrome 02/11/2012 079.99 Viral Syndrome 02/11/2012 079.99 Viral Syndrome 02/11/2012 079.99 Viral Syndrome 02/11/2012 079.99 Viral Syndrome 02/11/2012 KARYN OLVERA, BYRON Bruner 079.99 Viral Syndrome 02/11/2012 BYRON BOSS MD 079.99 Viral Syndrome 02/11/2012 LADONNA SALGUERO DO K 079.99 Viral Syndrome 02/11/2012 BYRON BOSS MD 079.99 Viral Syndrome 02/11/2012 LADONNA SALGUERO DO K 079.99 Viral Syndrome 02/11/2012 BYRON BOSS MD 079.99 Viral Syndrome 02/11/2012 BYRON BOSS MD 079.99 Viral Syndrome 02/11/2012 SALGUERO DO LADONNA K 079.99 Viral Syndrome 02/11/2012 SALGUERO TERE PRAKASHA K 079.99 Viral Syndrome 02/11/2012 TERE SALGUERO DOA K 079.99 Viral Syndrome 02/11/2012 TERE SALGUERO DOA K 079.99 Viral Syndrome 02/11/2012 MADL PRECISION THREAD GRINDER OPERATOR, ETELVINA L 079.99 Viral Syndrome 02/11/2012 MADL PRECISION THREAD GRINDER OPERATOR, ETELVINA L 079.99 Viral Syndrome 02/11/2012 MADL PRECISION THREAD GRINDER OPERATOR, ETELVINA L 079.99 Viral Syndrome 02/11/2012 SALGUERO DO LADONNA K 079.99 Viral Syndrome 02/11/2012 SALGUERO DO LADONNA K 079.99 Viral Syndrome 02/11/2012 MADL PRECISION THREAD GRINDER OPERATOR, ETELVINA L 079.99 Viral Syndrome 02/11/2012 MADL PRECISION THREAD GRINDER OPERATOR, ETELVINA L 079.99 Viral Syndrome 02/11/2012 MADL PRECISION THREAD GRINDER OPERATOR, ETELVINA L 079.99 Viral Syndrome 02/11/2012 MADL PRECISION THREAD GRINDER OPERATOR, ETELVINA L 079.99 Viral Syndrome 02/11/2012 MADL PRECISION THREAD GRINDER OPERATOR, ETELVINA L 079.99 Viral Syndrome 02/11/2012 MADL PRECISION THREAD GRINDER OPERATOR, ETELVINA L 079.99 Viral Syndrome 02/11/2012 MADL PRECISION THREAD GRINDER OPERATOR, ETELVINA L 079.99 Viral Syndrome 02/11/2012 SALGUERO DO, LADONNA K 079.99 Viral Syndrome 02/11/2012 SALGUERO DO, LADONNA K 079.99 Viral Syndrome 02/11/2012 MADL PRECISION THREAD GRINDER OPERATOR, ETELVINA L 079.99 Viral Syndrome 02/11/2012 SALGUERO DO, LADONNA K 079.99 Viral Syndrome 02/11/2012 MADL PRECISION THREAD GRINDER OPERATOR, ETELVINA L 079.99 Viral Syndrome 02/17/2012 LAURIE MORA APRN S 783.21 WEIGHT LOSS 02/17/2012 783.21 Weight Loss 02/17/2012 LAURIE MORA APRN S 783.21 Weight Loss 02/17/2012 LAURIE MORA APRN S 783.21 Weight Loss 02/17/2012 AMADO OLVERA, [...] BYRON BOSS MD 783.21 Weight Loss 02/17/2012 TERE SALGUERO DOA K 783.21 Weight Loss 02/17/2012 TERE SALGUERO DOA K 783.21 Weight Loss 02/17/2012 SALGUERO DO, LADONNA K 783.21 Weight Loss 02/17/2012 SALGUERO DO, LADONNA K 783.21 Weight Loss 02/17/2012 MADL PRECISION THREAD GRINDER OPERATOR, ETELVINA L 783.21 Weight Loss 02/17/2012 MADL PRECISION THREAD GRINDER OPERATOR, ETELVINA L 783.21 Weight Loss 02/17/2012 MADL PRECISION THREAD GRINDER OPERATOR, ETELVINA L 783.21 Weight Loss 02/17/2012 SALGUERO DO, LADONNA K 783.21 Weight Loss 02/17/2012 SALGUERO DO, LADONNA K 783.21 Weight Loss 02/17/2012 MADL PRECISION THREAD GRINDER OPERATOR, ETELVINA L 783.21 Weight Loss 02/17/2012 MADL PRECISION THREAD GRINDER OPERATOR, ETELVINA L 783.21 Weight Loss 02/17/2012 MADL PRECISION THREAD GRINDER OPERATOR, ETELVINA L 783.21 Weight Loss 02/17/2012 MADL PRECISION THREAD GRINDER OPERATOR, ETELVINA L 783.21 Weight Loss 02/17/2012 MADL PRECISION THREAD GRINDER OPERATOR, ETELVINA L 783.21 Weight Loss 02/17/2012 MADL PRECISION THREAD GRINDER OPERATOR, ETELVINA L 783.21 Weight Loss 02/17/2012 MADL PRECISION THREAD GRINDER OPERATOR, ETELVINA L 783.21 Weight Loss 02/17/2012 SALGUERO DO, LADONNA K 783.21 Weight Loss 02/17/2012 SALGUERO DO, LADONNA K 783.21 Weight Loss 02/17/2012 MADL PRECISION THREAD GRINDER OPERATOR, ETELVINA L 783.21 Weight Loss 02/17/2012 SALGUERO DO, LADONNA K 783.21 Weight Loss 02/17/2012 MADL PRECISION THREAD GRINDER OPERATOR, ETELVINA L 783.21 Weight Loss 02/24/2012 PALOMA MORA APRNNDA S 787.91 DIARRHEA 02/24/2012 787.91 Diarrhea 02/24/2012 PALOMA MORA APRNNDA S 787.91 Diarrhea 02/24/2012 PALOMA MORA APRNNDA S 787.91 Diarrhea 02/24/2012 AMADO OLVERA, ROMELIA [...] DO, LADONNA K 787.91 Diarrhea 02/24/2012 MADL PRECISION THREAD GRINDER OPERATOR, ETELVINA L 787.91 Diarrhea 02/24/2012 MADL PRECISION THREAD GRINDER OPERATOR, ETELVINA L 787.91 Diarrhea 02/24/2012 MADL PRECISION THREAD GRINDER OPERATOR, ETELVINA L 787.91 Diarrhea 02/24/2012 SALGUERO DO, LADONNA K 787.91 Diarrhea 02/24/2012 SALGUERO DO, LADONNA K 787.91 Diarrhea 02/24/2012 MADL PRECISION THREAD GRINDER OPERATOR, ETELVINA L 787.91 Diarrhea 02/24/2012 MADL PRECISION THREAD GRINDER OPERATOR, ETELVINA L 787.91 Diarrhea 02/24/2012 MADL PRECISION THREAD GRINDER OPERATOR, ETELVINA L 787.91 Diarrhea 02/24/2012 MADL PRECISION THREAD GRINDER OPERATOR, ETELVINA L 787.91 Diarrhea 02/24/2012 MADL PRECISION THREAD GRINDER OPERATOR, ETELVINA L 787.91 Diarrhea 02/24/2012 MADL PRECISION THREAD GRINDER OPERATOR, ETELVINA L 787.91 Diarrhea 02/24/2012 MADL PRECISION THREAD GRINDER OPERATOR, ETELVINA L 787.91 Diarrhea 02/24/2012 SALGUERO DO, LADONNA K 787.91 Diarrhea 02/24/2012 SALGUERO DO, LADONNA K 787.91 Diarrhea 02/24/2012 MADL PRECISION THREAD GRINDER OPERATOR, ETELVINA L 787.91 Diarrhea 02/24/2012 SALGUERO DO, LADONNA K 787.91 Diarrhea 02/24/2012 MADL PRECISION THREAD GRINDER OPERATOR, ETELVINA L 787.91 Diarrhea 04/07/2012 MORGAN PRECISION THREAD GRINDER OPERATOR, LAURIE S 787.20 DYSPHAGIA, UNSPECIFIED 04/07/2012 787.20 Dysphagia, Unspecified 04/07/2012 MORGAN PRECISION THREAD GRINDER OPERATOR, LAURIE S 787.20 Dysphagia, Unspecified 04/07/2012 MORGAN PRECISION THREAD GRINDER OPERATOR, LAURIE S 787.20 Dysphagia, Unspecified 04/07/2012 ROMELIA FISCHER MD 787.20 Dysphagia, Unspecified 04/07/2012 BYRON BOSS [...] DO, LADONNA K 787.20 Dysphagia, Unspecified 04/07/2012 MADMaxnie PRECISION THREAD GRINDER OPERATOR, ETELVINA L 787.20 Dysphagia, Unspecified 04/07/2012 MADL PRECISION THREAD GRINDER OPERATOR, ETELVINA L 787.20 Dysphagia, Unspecified 04/07/2012 MADL PRECISION THREAD GRINDER OPERATOR, ETELVINA L 787.20 Dysphagia, Unspecified 04/07/2012 SALGUERO DO, LADONNA K 787.20 Dysphagia, Unspecified 04/07/2012 SALGUERO DO, LADONNA K 787.20 Dysphagia, Unspecified 04/07/2012 MADL PRECISION THREAD GRINDER OPERATOR, ETELVINA L 787.20 Dysphagia, Unspecified 04/07/2012 MADL PRECISION THREAD GRINDER OPERATOR, ETELVINA L 787.20 Dysphagia, Unspecified 04/07/2012 MADL PRECISION THREAD GRINDER OPERATOR, ETELVINA L 787.20 Dysphagia, Unspecified 04/07/2012 MADL PRECISION THREAD GRINDER OPERATOR, ETELVINA L 787.20 Dysphagia, Unspecified 04/07/2012 MADL PRECISION THREAD GRINDER OPERATOR, ETELVINA L 787.20 Dysphagia, Unspecified 04/07/2012 MADL PRECISION THREAD GRINDER OPERATOR, ETELVINA L 787.20 Dysphagia, Unspecified 04/07/2012 MADL PRECISION THREAD GRINDER OPERATOR, ETELVINA L 787.20 Dysphagia, Unspecified 04/07/2012 SALGUERO DO, LADONNA K 787.20 Dysphagia, Unspecified 04/07/2012 SALGUERO DO, LADONNA K 787.20 Dysphagia, Unspecified 04/07/2012 MADL PRECISION THREAD GRINDER OPERATOR, ETELVINA L 787.20 Dysphagia, Unspecified 04/07/2012 SALGUERO DO, LADONNA K 787.20 Dysphagia, Unspecified 04/07/2012 MADL PRECISION THREAD GRINDER OPERATOR, ETELVINA L 787.20 Dysphagia, Unspecified 04/16/2012 [...] AIRWAY OBSTRUCT NEC 06/20/2012 Ot 824.4 FX BIMALLEOLAR- CLOSED 06/20/2012 Ot E000.8 OTHER EXTERNAL CAUSE STATUS [...] CANCER SCREENING (PAP SMEAR) 09/07/2012 V03.82 Ppv23 (pneumovax) Dx 09/07/2012 V76.10 Breast Cancer Screening 09/07/2012 V76.12 Mammogram Screening 09/07/2012 V76.2 Cervical Cancer Screening (pap Smear) 09/07/2012 LAURIE MORA APRN S V03.82 Ppv23 (pneumovax) Dx 09/07/2012 LAURIE MORA APRN S V76.10 Breast Cancer Screening 09/07/2012 SUSHANT MORA APRNA S V76.12 Mammogram Screening 09/07/2012 SUSHANT MORA APRNA S V76.2 Cervical Cancer Screening (pap Smear) 09/07/2012 LAURIE MORA APRN S V03.82 Ppv23 (pneumovax) Dx 09/07/2012 SUSHANT MORA APRNA S V76.10 Breast Cancer Screening 09/07/2012 SUSHANT [...] Cancer Screening (pap Smear) 09/07/2012 V03.82 Ppv23 (pneumovax) Dx 09/07/2012 V76.10 Breast Cancer Screening 09/07/2012 V76.12 Mammogram Screening 09/07/2012 V76.2 Cervical Cancer Screening (pap Smear) 09/07/2012 V03.82 Ppv23 (pneumovax) Dx 09/07/2012 V76.10 Breast Cancer Screening 09/07/2012 V76.12 Mammogram Screening 09/07/2012 V76.2 Cervical Cancer Screening (pap Smear) 09/07/2012 V03.82 Ppv23 (pneumovax) Dx 09/07/2012 V76.10 Breast Cancer Screening 09/07/2012 V76.12 Mammogram Screening 09/07/2012 V76.2 Cervical Cancer Screening (pap Smear) 09/07/2012 V03.82 Ppv23 (pneumovax) Dx 09/07/2012 V76.10 Breast Cancer Screening 09/07/2012 [...] Breast Cancer Screening 09/07/2012 LADONNA SALGUERO DO K V76.12 Mammogram Screening 09/07/2012 LADONNA SALGUERO DO [...] Breast Cancer Screening 09/07/2012 LADONNA SALGUERO DO K V76.12 Mammogram Screening 09/07/2012 LADONNA SALGUERO DO K V76.2 Cervical Cancer Screening (pap Smear) [...] MD6.2 Cervical Cancer Screening (pap Smear) 09/07/2012 NOEMY PRAKASHLADONNA K V03.82 Ppv23 (pneumovax) Dx 09/07/2012 NOEMY PRAKASHLADONNA K V76.10 Breast Cancer Screening 09/07/2012 NOEMY PRAKASH LADONNA K V76.12 Mammogram Screening 09/07/2012 NOEMY PRAKASHTEREA K V76.2 Cervical Cancer Screening (pap Smear) 09/07/2012 NOEMY PRAKASHTEREA K V03.82 Ppv23 (pneumovax) Dx 09/07/2012 NOEMY PRAKASHLADONNA K V76.10 Breast Cancer Screening 09/07/2012 NOEMY PRAKASHTEREA K V76.12 Mammogram Screening 09/07/2012 NOEMY PRAKASHLADONNA K V76.2 Cervical Cancer Screening (pap Smear) 09/07/2012 SALGUERO TERE PRAKASHA K V03.82 Ppv23 (pneumovax) Dx 09/07/2012 NOEMY PRAKASHLADONNA K V76.10 Breast Cancer Screening 09/07/2012 NOEMY PRAKASHLADONNA K V76.12 Mammogram Screening 09/07/2012 NOEMY PRAKASHLADONNA K V76.2 Cervical Cancer Screening (pap Smear) 09/07/2012 NOEMY PRAKASHTEREA K V03.82 Ppv23 (pneumovax) Dx 09/07/2012 NOEMY PRAKASHLADONNA K V76.10 Breast Cancer Screening 09/07/2012 NOEMY PRAKASHTEREA K V76.12 Mammogram Screening 09/07/2012 NOEMY PRAKASHTEREA K V76.2 Cervical Cancer Screening (pap Smear) 09/07/2012 AISHA PRECISION THREAD GRINDER OPERATORHAMMAD BowserA L V03.82 Ppv23 (pneumovax) Dx 09/07/2012 AISHA PRECISION THREAD GRINDER OPERATORHAMMAD BowserA L V76.10 Breast Cancer Screening 09/07/2012 MADL PRECISION THREAD GRINDER OPERATOR, ETELVINA L V76.12 Mammogram Screening 09/07/2012 AISHA PRECISION THREAD GRINDER OPERATORHAMMAD BowserA L V76.2 Cervical Cancer Screening (pap Smear) 09/07/2012 AISHA PRECISION THREAD GRINDER OPERATORHAMMAD BowserA L V03.82 Ppv23 (pneumovax) Dx 09/07/2012 MADL PRECISION THREAD GRINDER OPERATORHAMMAD BowserA L V76.10 Breast Cancer Screening 09/07/2012 AISHA PRECISION THREAD GRINDER OPERATOR, ETELVINA L V76.12 Mammogram Screening 09/07/2012 MADL PRECISION THREAD GRINDER OPERATOR, ETELVINA L V76.2 Cervical Cancer Screening (pap Smear) 09/07/2012 MADL PRECISION THREAD GRINDER OPERATOR, ETELVINA L V03.82 Ppv23 (pneumovax) Dx 09/07/2012 MADL PRECISION THREAD GRINDER OPERATOR, ETELVINA L V76.10 Breast Cancer Screening 09/07/2012 MADL PRECISION THREAD GRINDER OPERATOR, ETELVINA L V76.12 Mammogram Screening 09/07/2012 MADL PRECISION THREAD GRINDER OPERATOR, ETELVINA L V76.2 Cervical Cancer Screening (pap Smear) 09/07/2012 SALGUERO DO, LADONNA K V03.82 Ppv23 (pneumovax) Dx 09/07/2012 SALGUERO DO LADONNA K V76.10 Breast Cancer Screening 09/07/2012 SALGUERO DO, LADONNA K V76.12 Mammogram Screening 09/07/2012 SALGUERO DO, LADONNA K V76.2 Cervical Cancer Screening (pap Smear) 09/07/2012 SALGUERO DO, LADONNA K V03.82 Ppv23 (pneumovax) Dx 09/07/2012 SALGUERO DO, LADONNA K V76.10 Breast Cancer Screening 09/07/2012 SALGUERO DO, LADONNA K V76.12 Mammogram Screening 09/07/2012 SALGUERO DO, LADONNA K V76.2 Cervical Cancer Screening (pap Smear) 09/07/2012 MADMaxine PRECISION THREAD GRINDER OPERATOR, ETELVINA L V03.82 Ppv23 (pneumovax) Dx 09/07/2012 MADL PRECISION THREAD GRINDER OPERATOR, ETELVINA L V76.10 Breast Cancer Screening 09/07/2012 MADL PRECISION THREAD GRINDER OPERATOR, ETELVINA L V76.12 Mammogram Screening 09/07/2012 MADL PRECISION THREAD GRINDER OPERATOR, ETELVINA L V76.2 Cervical Cancer Screening (pap Smear) 09/07/2012 MADL PRECISION THREAD GRINDER OPERATOR, ETELVINA L V03.82 Ppv23 (pneumovax) Dx 09/07/2012 MADL PRECISION THREAD GRINDER OPERATOR, ETELVINA L V76.10 Breast Cancer Screening 09/07/2012 MADL PRECISION THREAD GRINDER OPERATOR, ETELVINA L V76.12 Mammogram Screening 09/07/2012 MADL PRECISION THREAD GRINDER OPERATOR, ETELVINA L V76.2 Cervical Cancer Screening (pap Smear) 09/07/2012 MADL PRECISION THREAD GRINDER OPERATOR, ETELVINA L V03.82 Ppv23 (pneumovax) Dx 09/07/2012 MAD PRECISION THREAD GRINDER OPERATOR, ETELVINA L V76.10 Breast Cancer Screening 09/07/2012 MAD PRECISION THREAD GRINDER OPERATOR, ETELVINA L V76.12 Mammogram Screening 09/07/2012 MAD PRECISION THREAD GRINDER OPERATOR, ETELVINA L V76.2 Cervical Cancer Screening (pap Smear) 09/07/2012 [facility] [employer] THREAD GRINDER OPERATOR, ETELVINA L V03.82 Ppv23 (pneumovax) Dx 09/07/2012 [facility] PRECISION THREAD GRINDER OPERATOR, ETELVINA L V76.10 Breast Cancer Screening 09/07/2012 [facility] PRECISION THREAD GRINDER OPERATOR, ETELVINA L V76.12 Mammogram Screening 09/07/2012 [facility] [employer] THREAD GRINDER OPERATOR, ETELVINA L V76.2 Cervical Cancer Screening (pap Smear) 09/07/2012 [facility] [employer] THREAD GRINDER OPERATOR, ETELVINA L V03.82 Ppv23 (pneumovax) Dx 09/07/2012 [facility] PRECISION THREAD GRINDER OPERATOR, ETELVINA L V76.10 Breast Cancer Screening 09/07/2012 [facility] PRECISION THREAD GRINDER OPERATOR, ETELVINA L V76.12 Mammogram Screening 09/07/2012 [facility] PRECISION THREAD GRINDER OPERATOR, ETELVINA L V76.2 Cervical Cancer Screening (pap Smear) 09/07/2012 [facility] PRECISION THREAD GRINDER OPERATOR, ETELVINA L V03.82 Ppv23 (pneumovax) Dx 09/07/2012 [facility] PRECISION THREAD GRINDER OPERATOR, ETELVINA L V76.10 Breast Cancer Screening 09/07/2012 [facility] PRECISION THREAD GRINDER OPERATOR, ETELVINA L V76.12 Mammogram Screening 09/07/2012 [facility] PRECISION THREAD GRINDER OPERATOR, ETELVINA L V76.2 Cervical Cancer Screening (pap Smear) 09/07/2012 [facility] [employer] THREAD GRINDER OPERATOR, ETELVINA L V03.82 Ppv23 (pneumovax) Dx 09/07/2012 [facility] PRECISION THREAD GRINDER OPERATOR, ETELVINA L V76.10 Breast Cancer Screening 09/07/2012 [facility] PRECISION THREAD GRINDER OPERATOR, ETELVINA L V76.12 Mammogram Screening 09/07/2012 [facility] [employer]READ GRINDER OPERATOR, ETELVINA L V76.2 Cervical Cancer Screening (pap Smear) 09/07/2012 SALGUERO DOTEREA K V03.82 Ppv23 (pneumovax) Dx 09/07/2012 TERE [...] Cervical Cancer Screening (pap Smear) 09/07/2012 [facility] [employer] GRINDER OPERATOR, ETELVINA L V03.82 Ppv23 (pneumovax) Dx 09/07/2012 [facility] [employer] THREAD GRINDER OPERATORHAMMAD BowserA L V76.10 Breast Cancer Screening 09/07/2012 [facility] [employer] THREAD GRINDER OPERATOR, ETELVINA L V76.12 Mammogram Screening 09/07/2012 [facility] [employer] THREAD GRINDER OPERATORHAMMAD BowserA L V76.2 Cervical Cancer Screening (pap Smear) 09/07/2012 NOEMY PRAKASH LADONNA K V03.82 Ppv23 (pneumovax) Dx 09/07/2012 TERE SALGUERO DOA K V76.10 Breast Cancer Screening 09/07/2012 TERE SALGUERO DOA K V76.12 Mammogram Screening 09/07/2012 TERE SALGUERO DOA K V76.2 Cervical Cancer Screening (pap Smear) 09/07/2012 [facility] [employer]READ GRINDER OPERATOR, ETELVINA L V03.82 Ppv23 (pneumovax) Dx 09/07/2012 [facility] [employer] THREAD GRINDER OPERATOR, ETELVINA L V76.10 Breast Cancer Screening 09/07/2012 [facility] [employer] THREAD GRINDER OPERATOR, ETELVINA L V76.12 Mammogram Screening 09/07/2012 [facility] [employer] THREAD GRINDER OPERATOR, ETELVINA L V76.2 Cervical Cancer Screening (pap Smear) 09/08/2012 Ot 305.1 TOBACCO USE DISORDER 09/08/2012 Ot 466.0 ACUTE BRONCHITIS 09/08/2012 Ot 786.2 COUGH 09/19/2012 Ot 305.1 TOBACCO USE DISORDER 09/19/2012 Ot 491.9 CHRONIC BRONCHITIS NOS 09/19/2012 Ot 780.79 OTH MALAISE FATIGUE 10/22/2012 LAURIE MORA APRN V58.69 high risk medication 10/22/2012 V58.69 high risk medication 10/22/2012 LAURIE MORA APRN S V58.69 high risk medication 10/22/2012 LAURIE MORA APRN S V58.69 high risk medication 10/22/2012 ROMELIA FISCHER MD V58.69 high risk medication 10/22/2012 BYRON BOSS MD V58.69 taking high-risk medication for a long time 10/22/2012 V58.69 taking high-risk medication for a long time 10/22/2012 V58.69 taking high-risk medication for a long time 10/22/2012 V58.69 taking high-risk medication for a long time 10/22/2012 V58.69 taking high-risk medication for a long time 10/22/2012 BYRON BOSS MD V58.69 taking high-risk medication for a long time 10/22/2012 BYRON BOSS MD V58.69 taking high-risk medication for a long time 10/22/2012 TERE SALGUERO DOA K V58.69 taking high-risk medication for a long time 10/22/2012 BYRON BOSS MD V58.69 taking high-risk medication for a long time 10/22/2012 NOEMY PRAKASH LADONNA K V58.69 taking high-risk medication for [...] medication for a long time 10/22/2012 MADL PRECISION THREAD GRINDER OPERATORHAMMADA L V58.69 taking high-risk medication for a long time 10/22/2012 LAODNNA SALGUERO DO K V58.69 taking high-risk medication for a long time 10/22/2012 LADONNA SALGUERO DO K V58.69 taking high-risk medication for a long time 10/22/2012 MADL PRECISION THREAD GRINDER OPERATORHAMMADA L V58.69 taking high-risk medication for a long time 10/22/2012 MADL PRECISION THREAD GRINDER OPERATORHAMMADA L V58.69 taking high-risk medication for a long time 10/22/2012 MADL PRECISION THREAD GRINDER OPERATOR, ETELVINA L V58.69 taking high-risk medication for a long time 10/22/2012 MADL PRECISION THREAD GRINDER OPERATORHAMAMDA L V58.69 taking high-risk medication for a long time 10/22/2012 MADL PRECISION THREAD GRINDER OPERATORHAMMAD BowserA L V58.69 taking high-risk medication for a long time 10/22/2012 MADL PRECISION THREAD GRINDER OPERATORHAMMAD BowserA L V58.69 taking high-risk medication for a long time 10/22/2012 MADL PRECISION THREAD GRINDER OPERATORHAMMADA L V58.69 taking high-risk medication for a long time 10/22/2012 LADONNA SALGUERO DO K V58.69 taking high-risk medication for a long time 10/22/2012 LADONNA SALGUERO DO K V58.69 taking high-risk medication for a long time 10/22/2012 HUGOL PRECISION THREAD GRINDER OPERATORHAMMAD BowserA L V58.69 taking high-risk medication for a long time 10/22/2012 LADONNA SALGUERO DO K V58.69 taking high-risk medication for a long time 10/22/2012 MADL PRECISION THREAD GRINDER OPERATORHAMMAD BowserA L V58.69 taking high-risk medication for a long time 10/26/2012 Ot 250.00 DIAB MELVA WO COMPL, TYPE II OR UNSPEC TY 10/26/2012 Ot 278.00 OBESITY, NOS 10/26/2012 Ot 300.00 ANXIETY STATE NOS 10/26/2012 Ot 305.1 TOBACCO USE DISORDER 10/26/2012 Ot 311 DEPRESSIVE DISORDER NEC 10/26/2012 Ot 401.9 HYPERTENSION NOS 10/26/2012 Ot 414.01 CORONARY ATHEROSCLEROSIS OF [place] CORON 10/26/2012 Ot 491.21 OBSTR CHRONIC BRONCHITIS, W (ACUTE) EXAC 10/26/2012 Ot 530.81 ESOPHAGEAL REFLUX 10/26/2012 Ot 724.5 BACKACHE NOS 10/26/2012 Ot 786.50 CHEST PAIN NOS 10/26/2012 Ot V45.82 PERCUTANEOUS TRANSLUM CORON ANGIOPLASTY 10/26/2012 Ot V85.39 BODY MASS INDEX 39.0-39.9, ADULT 11/01/2012 465.9 UPPER RESPIRATORY INFECTION 11/01/2012 MORGAN PRECISION THREAD GRINDER OPERATOR, LAURIE S 465.9 UPPER RESPIRATORY INFECTION 11/01/2012 MORGAN HARRIS LAURIE S 465.9 UPPER RESPIRATORY INFECTION 11/01/2012 ROMELIA FISCHER MD 465.9 UPPER RESPIRATORY INFECTION 11/01/2012 BYRON BOSS MD 465.9 UPPER RESPIRATORY INFECTION 11/01/2012 465.9 UPPER RESPIRATORY INFECTION 11/01/2012 465.9 UPPER RESPIRATORY INFECTION 11/01/2012 465.9 UPPER RESPIRATORY INFECTION 11/01/2012 465.9 UPPER RESPIRATORY INFECTION 11/01/2012 BYRON BOSS MD 465.9 UPPER RESPIRATORY INFECTION 11/01/2012 BYRON BOSS MD 465.9 UPPER RESPIRATORY INFECTION 11/01/2012 SALGUERO DO LADONNA K 465.9 UPPER RESPIRATORY INFECTION 11/01/2012 BYRON BOSS MD 465.9 UPPER RESPIRATORY INFECTION 11/01/2012 SALGUERO DO LADONNA K 465.9 UPPER RESPIRATORY INFECTION 11/01/2012 BYRON BOSS MD M 465.9 UPPER RESPIRATORY INFECTION 11/01/2012 BYRON BOSS MD 465.9 UPPER RESPIRATORY INFECTION 11/01/2012 SALGUERO DO, LADONNA K 465.9 UPPER RESPIRATORY INFECTION 11/01/2012 SALGUERO DO, LADONNA K 465.9 UPPER RESPIRATORY INFECTION 11/01/2012 SALGUERO DO, LADONNA K 465.9 UPPER RESPIRATORY INFECTION 11/01/2012 SALGUERO DO, LADONNA K 465.9 UPPER RESPIRATORY INFECTION 11/01/2012 MADL PRECISION THREAD GRINDER OPERATOR, ETELVINA L 465.9 UPPER RESPIRATORY INFECTION 11/01/2012 MADL PRECISION THREAD GRINDER OPERATOR, ETELVINA L 465.9 UPPER RESPIRATORY INFECTION 11/01/2012 MADL PRECISION THREAD GRINDER OPERATOR, ETELVINA L 465.9 UPPER RESPIRATORY INFECTION 11/01/2012 SALGUERO DO, LADONNA K 465.9 UPPER RESPIRATORY INFECTION 11/01/2012 SALGUERO DO, LADONNA K 465.9 UPPER RESPIRATORY INFECTION 11/01/2012 MADL PRECISION THREAD GRINDER OPERATOR, ETELVINA L 465.9 UPPER RESPIRATORY INFECTION 11/01/2012 MADL PRECISION THREAD GRINDER OPERATOR, ETELVINA L 465.9 UPPER RESPIRATORY INFECTION 11/01/2012 MADL PRECISION THREAD GRINDER OPERATOR, ETELVINA L 465.9 UPPER RESPIRATORY INFECTION 11/01/2012 MADL PRECISION THREAD GRINDER OPERATOR, ETELVINA L 465.9 UPPER RESPIRATORY INFECTION 11/01/2012 MADL PRECISION THREAD GRINDER OPERATOR, ETELVINA L 465.9 UPPER RESPIRATORY INFECTION 11/01/2012 MADL PRECISION THREAD GRINDER OPERATOR, ETELVINA L 465.9 UPPER RESPIRATORY INFECTION 11/01/2012 MADL PRECISION THREAD GRINDER OPERATOR, ETELVINA L 465.9 UPPER RESPIRATORY INFECTION 11/01/2012 SALGUERO DO, LADONNA K 465.9 UPPER RESPIRATORY INFECTION 11/01/2012 SALGUERO DO, LADONNA K 465.9 UPPER RESPIRATORY INFECTION 11/01/2012 MADL PRECISION THREAD GRINDER OPERATOR, ETELVINA L 465.9 UPPER RESPIRATORY INFECTION 11/01/2012 SALGUERO DO, LADONNA K 465.9 UPPER RESPIRATORY INFECTION 11/01/2012 MADL PRECISION THREAD GRINDER OPERATOR, ETELVINA L 465.9 UPPER RESPIRATORY INFECTION 11/13/2012 Ot 250.00 DIAB MELVA WO COMPL, TYPE II OR UNSPEC TY 11/13/2012 Ot 272.4 HYPERLIPIDEMIA NEC/NOS 11/13/2012 Ot 278.00 OBESITY, NOS 11/13/2012 Ot 300.00 ANXIETY STATE NOS 11/13/2012 Ot 305.1 TOBACCO USE DISORDER 11/13/2012 Ot 311 DEPRESSIVE DISORDER NEC 11/13/2012 Ot 401.9 HYPERTENSION NOS 11/13/2012 Ot 414.01 CORONARY ATHEROSCLEROSIS OF [place] CORON 11/13/2012 Ot 458.9 HYPOTENSION NOS 11/13/2012 [...] BODY MASS INDEX 40.0-44.9, ADULT 12/02/2012 MORGAN PRECISION THREAD GRINDER OPERATOR, LAURIE S 244.9 HYPOTHYROIDISM 12/02/2012 AMADO OLVERA, ROMELIA 244.9 HYPOTHYROIDISM 12/02/2012 KARYN OLVERA, BYRON Bruenr 244.9 HYPOTHYROIDISM 12/02/2012 244.9 HYPOTHYROIDISM 12/02/2012 244.9 HYPOTHYROIDISM 12/02/2012 244.9 HYPOTHYROIDISM 12/02/2012 244.9 HYPOTHYROIDISM 12/02/2012 KARYN OLVERA, BYRON M 244.9 HYPOTHYROIDISM 12/02/2012 KARYN OLVERA, BYRON Bruner 244.9 HYPOTHYROIDISM 12/02/2012 SALGUERO DO, LADONNA K 244.9 HYPOTHYROIDISM 12/02/2012 KARYN OLVERA, BYRON M 244.9 HYPOTHYROIDISM 12/02/2012 SALGUERO DO, LADONNA K 244.9 HYPOTHYROIDISM 12/02/2012 KARYN OLVERA, BYRON Bruner 244.9 HYPOTHYROIDISM 12/02/2012 KARYN OLVERA, BYRON Bruner 244.9 HYPOTHYROIDISM 12/02/2012 SALGUERO DO, LADONNA K 244.9 HYPOTHYROIDISM 12/02/2012 SALGUERO DO, LADONNA K 244.9 HYPOTHYROIDISM 12/02/2012 SALGUERO DO, LADONNA K 244.9 HYPOTHYROIDISM 12/02/2012 SALGUERO DO, LADONNA K 244.9 HYPOTHYROIDISM 12/02/2012 MADL PRECISION THREAD GRINDER OPERATOR, ETELVINA L 244.9 HYPOTHYROIDISM 12/02/2012 MADL PRECISION THREAD GRINDER OPERATOR, ETELVINA L 244.9 HYPOTHYROIDISM 12/02/2012 MADL PRECISION THREAD GRINDER OPERATOR, ETELVINA L 244.9 HYPOTHYROIDISM 12/02/2012 SALGUERO DO, LADONNA K 244.9 HYPOTHYROIDISM 12/02/2012 SALGUERO DO, LADONNA K 244.9 HYPOTHYROIDISM 12/02/2012 MADL PRECISION THREAD GRINDER OPERATOR, ETELVINA L 244.9 HYPOTHYROIDISM 12/02/2012 MADL PRECISION THREAD GRINDER OPERATOR, ETELVINA L 244.9 HYPOTHYROIDISM 12/02/2012 MADL PRECISION THREAD GRINDER OPERATOR, ETELVINA L 244.9 HYPOTHYROIDISM 12/02/2012 MADL PRECISION THREAD GRINDER OPERATOR, ETELVINA L 244.9 HYPOTHYROIDISM 12/02/2012 MADL PRECISION THREAD GRINDER OPERATOR, ETELVINA L 244.9 HYPOTHYROIDISM 12/02/2012 MADL PRECISION THREAD GRINDER OPERATOR, ETELVINA L 244.9 HYPOTHYROIDISM 12/02/2012 MADL PRECISION THREAD GRINDER OPERATOR, ETELVINA L 244.9 HYPOTHYROIDISM 12/02/2012 SALGUERO DO, LADONNA K 244.9 HYPOTHYROIDISM 12/02/2012 SALGUERO DO, LADONNA K 244.9 HYPOTHYROIDISM 12/02/2012 MADL PRECISION THREAD GRINDER OPERATOR, ETELVINA L 244.9 HYPOTHYROIDISM 12/02/2012 SALGUERO DO, LADONNA K 244.9 HYPOTHYROIDISM 12/02/2012 MADL PRECISION THREAD GRINDER OPERATOR, ETELVINA L 244.9 HYPOTHYROIDISM 12/26/2012 Ot [...] BYRON BOSS MD 780.52 insomnia 02/08/2013 SALGUERO DO, LADONNA K 780.52 insomnia 02/08/2013 BYRON BOSS MD 780.52 insomnia 02/08/2013 BYRON BOSS MD 780.52 insomnia 02/08/2013 SALGUERO DO, LADONNA K 780.52 insomnia 02/08/2013 SALGUERO DO, LADONNA K 780.52 insomnia 02/08/2013 SALGUERO DO, LADONNA K 780.52 insomnia 02/08/2013 SALGUERO DO, LADONNA K 780.52 insomnia 02/08/2013 MADL PRECISION THREAD GRINDER OPERATOR, ETELVINA L 780.52 insomnia 02/08/2013 MADL PRECISION THREAD GRINDER OPERATOR, ETELVINA L 780.52 insomnia 02/08/2013 MADL PRECISION THREAD GRINDER OPERATOR, ETELVINA L 780.52 insomnia 02/08/2013 SALGUERO DO, LADONNA K 780.52 insomnia 02/08/2013 SALGUERO DO, LADONNA K 780.52 insomnia 02/08/2013 MADL PRECISION THREAD GRINDER OPERATOR, ETELVINA L 780.52 insomnia 02/08/2013 MADL PRECISION THREAD GRINDER OPERATOR, ETELVINA L 780.52 insomnia 02/08/2013 MADL PRECISION THREAD GRINDER OPERATOR, ETELVINA L 780.52 insomnia 02/08/2013 MADL PRECISION THREAD GRINDER OPERATOR, ETELVINA L 780.52 insomnia 02/08/2013 MADL PRECISION THREAD GRINDER OPERATOR, ETELVINA L 780.52 insomnia 02/08/2013 MADL PRECISION THREAD GRINDER OPERATOR, ETELVINA L 780.52 insomnia 02/08/2013 MADL PRECISION THREAD GRINDER OPERATOR, ETELVINA L 780.52 insomnia 02/08/2013 SALGUERO DO, LADONNA K 780.52 insomnia 02/08/2013 SALGUERO DO, LADONNA K 780.52 insomnia 02/08/2013 MADL PRECISION THREAD GRINDER OPERATOR, ETELVINA L 780.52 insomnia 02/08/2013 SALGUERO DO, LADONNA K 780.52 insomnia 02/08/2013 MADL PRECISION THREAD GRINDER OPERATOR, ETELVINA L 780.52 insomnia 04/17/2013 REHAN [...] BYRON BOSS MD 719.07 EDEMA FOOT 06/03/2013 KARYN OLVERA, BYRON Bruner 110.1 ONYCHOMYCOSIS 06/03/2013 BYRON BOSS MD 719.07 EDEMA FOOT 06/03/2013 SALGUERO DO, LADONNA K 110.1 ONYCHOMYCOSIS 06/03/2013 SALGUERO DO, LADONNA K 719.07 EDEMA FOOT 06/03/2013 KARYN OLVERA, BYRON Bruner 110.1 ONYCHOMYCOSIS 06/03/2013 BYRON BOSS MD 719.07 [...] LADONNA K 719.07 EDEMA FOOT 06/03/2013 MADL PRECISION THREAD GRINDER OPERATOR, ETELVINA L 110.1 ONYCHOMYCOSIS 06/03/2013 MADL PRECISION THREAD GRINDER OPERATOR, ETELVINA L 719.07 EDEMA FOOT 06/03/2013 MADL PRECISION THREAD GRINDER OPERATOR, ETELVINA L 110.1 ONYCHOMYCOSIS 06/03/2013 MADL PRECISION THREAD GRINDER OPERATOR, ETELVINA L 719.07 EDEMA FOOT 06/03/2013 MADL PRECISION THREAD GRINDER OPERATOR, ETELVINA L 110.1 ONYCHOMYCOSIS 06/03/2013 MADL PRECISION THREAD GRINDER OPERATOR, ETELVINA L 719.07 EDEMA FOOT 06/03/2013 SALGUERO DO, LADONNA K 110.1 ONYCHOMYCOSIS 06/03/2013 SALGUERO DO, LADONNA K 719.07 EDEMA FOOT 06/03/2013 SALGUERO DO, LADONNA K 110.1 ONYCHOMYCOSIS 06/03/2013 SALGUERO DO, LADONNA K 719.07 EDEMA FOOT 06/03/2013 MADL PRECISION THREAD GRINDER OPERATOR, ETELVINA L 110.1 ONYCHOMYCOSIS 06/03/2013 MADL PRECISION THREAD GRINDER OPERATOR, ETELVINA L 719.07 EDEMA FOOT 06/03/2013 MADL PRECISION THREAD GRINDER OPERATOR, ETELVINA L 110.1 ONYCHOMYCOSIS 06/03/2013 MADL PRECISION THREAD GRINDER OPERATOR, ETELVINA L 719.07 EDEMA FOOT 06/03/2013 MADL PRECISION THREAD GRINDER OPERATOR, ETELVINA L 110.1 ONYCHOMYCOSIS 06/03/2013 MADL PRECISION THREAD GRINDER OPERATOR, ETELVINA L 719.07 EDEMA FOOT 06/03/2013 MADL PRECISION THREAD GRINDER OPERATOR, ETELVINA L 110.1 ONYCHOMYCOSIS 06/03/2013 MADL PRECISION THREAD GRINDER OPERATOR, ETELVINA L 719.07 EDEMA FOOT 06/03/2013 MADL PRECISION THREAD GRINDER OPERATOR, ETELVINA L 110.1 ONYCHOMYCOSIS 06/03/2013 MADL PRECISION THREAD GRINDER OPERATOR, ETELVINA L 719.07 EDEMA FOOT 06/03/2013 MADL PRECISION THREAD GRINDER OPERATOR, ETELVINA L 110.1 ONYCHOMYCOSIS 06/03/2013 MADL PRECISION THREAD GRINDER OPERATOR, ETELVINA L 719.07 EDEMA FOOT 06/03/2013 MADL PRECISION THREAD GRINDER OPERATOR, ETELVINA L 110.1 ONYCHOMYCOSIS 06/03/2013 MADL PRECISION THREAD GRINDER OPERATOR, ETELVINA L 719.07 EDEMA FOOT 06/03/2013 SALGEURO DO, LADONNA K 110.1 ONYCHOMYCOSIS 06/03/2013 SALGUERO DO, LADONNA K 719.07 EDEMA FOOT 06/03/2013 SALGUERO DO, LADONNA K 110.1 ONYCHOMYCOSIS 06/03/2013 SALGUERO DO, LADONNA K 719.07 EDEMA FOOT 06/03/2013 MADL PRECISION THREAD GRINDER OPERATOR, ETELVINA L 110.1 ONYCHOMYCOSIS 06/03/2013 MADL PRECISION THREAD GRINDER OPERATOR, ETELVINA L 719.07 EDEMA FOOT 06/03/2013 SALGUERO DO, LADONNA K 110.1 ONYCHOMYCOSIS 06/03/2013 SALGUERO DO, LADONNA K 719.07 EDEMA FOOT 06/03/2013 MADL PRECISION THREAD GRINDER OPERATOR, ETELVINA L 110.1 ONYCHOMYCOSIS 06/03/2013 HUGOL PRECISION THREAD GRINDER OPERATOR, ETELVINA L 719.07 EDEMA FOOT 08/03/2013 EDUARDO VILLEGAS MD Ot 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 08/03/2013 EDUARDO VILLEGAS MD Ot 788.30 UNSPECIFIED URINARY INCONTINENCE 08/25/2013 BYRON BOSS MD 311 DEPRESSIVE DISORDER NOT ELSEWHERE CLASSIFIED 08/25/2013 BYRON BOSS MD 595.0 ACUTE CYSTITIS 08/25/2013 SALGUERO DO LADONNA K 311 DEPRESSIVE DISORDER NOT ELSEWHERE [...] LADONNA K 595.0 ACUTE CYSTITIS 08/25/2013 MADL PRECISION THREAD GRINDER OPERATOR, ETELVINA L 311 depression 08/25/2013 MADL PRECISION THREAD GRINDER OPERATOR, ETELVINA L 595.0 ACUTE CYSTITIS 08/25/2013 MADL PRECISION THREAD GRINDER OPERATOR, ETELVINA L 311 depression 08/25/2013 MADL PRECISION THREAD GRINDER OPERATOR, ETELVINA L 595.0 ACUTE CYSTITIS 08/25/2013 MADL PRECISION THREAD GRINDER OPERATOR, ETELVINA L 311 depression 08/25/2013 MADL PRECISION THREAD GRINDER OPERATOR, ETELVINA L 595.0 ACUTE CYSTITIS 08/25/2013 SALGUERO DO, LADONNA K 311 depression 08/25/2013 SALGUERO DO, LADONNA K 595.0 ACUTE CYSTITIS 08/25/2013 SALGUERO DO, LADONNA K 311 depression 08/25/2013 SALGUERO DO, LADONNA K 595.0 ACUTE CYSTITIS 08/25/2013 MADL PRECISION THREAD GRINDER OPERATOR, ETELVINA L 311 depression 08/25/2013 MADL PRECISION THREAD GRINDER OPERATOR, ETELVINA L 595.0 ACUTE CYSTITIS 08/25/2013 MADL PRECISION THREAD GRINDER OPERATOR, ETELVINA L 311 depression 08/25/2013 MADL PRECISION THREAD GRINDER OPERATOR, ETELVINA L 595.0 ACUTE CYSTITIS 08/25/2013 MADL PRECISION THREAD GRINDER OPERATOR, ETELVINA L 311 depression 08/25/2013 MADL PRECISION THREAD GRINDER OPERATOR, ETELVINA L 595.0 ACUTE CYSTITIS 08/25/2013 MADL PRECISION THREAD GRINDER OPERATOR, ETELVINA L 311 depression 08/25/2013 MADL PRECISION THREAD GRINDER OPERATOR, ETELVINA L 595.0 ACUTE CYSTITIS 08/25/2013 MADL PRECISION THREAD GRINDER OPERATOR, ETELVINA L 311 depression 08/25/2013 MADL PRECISION THREAD GRINDER OPERATOR, ETELVINA L 595.0 ACUTE CYSTITIS 08/25/2013 MADL PRECISION THREAD GRINDER OPERATOR, ETELVINA L 311 depression 08/25/2013 MADL PRECISION THREAD GRINDER OPERATOR, ETELVINA L 595.0 ACUTE CYSTITIS 08/25/2013 MADL PRECISION THREAD GRINDER OPERATOR, ETELVINA L 311 depression 08/25/2013 MADL PRECISION THREAD GRINDER OPERATOR, ETELVINA L 595.0 ACUTE CYSTITIS 08/25/2013 SALGUERO DO, LADONNA K 311 depression 08/25/2013 SALGUERO DO, LADONNA K 595.0 ACUTE CYSTITIS 08/25/2013 SALGUERO DO, LADONNA K 311 depression 08/25/2013 SALGUERO DO, LADONNA K 595.0 ACUTE CYSTITIS 08/25/2013 MADL PRECISION THREAD GRINDER OPERATOR, ETELVINA L 311 depression 08/25/2013 MADL PRECISION THREAD GRINDER OPERATOR, ETELVINA L 595.0 ACUTE CYSTITIS 08/25/2013 SALGUERO DO, LADONNA K 311 depression 08/25/2013 SALGUERO DO, LADONNA K 595.0 ACUTE CYSTITIS 08/25/2013 MADL PRECISION THREAD GRINDER OPERATOR, ETELVINA L 311 depression 08/25/2013 MADL PRECISION THREAD GRINDER OPERATOR, ETELVINA L 595.0 ACUTE CYSTITIS 09/02/2013 SALGUERO DO, LADONNA K 709.8 FISSURES SKIN 09/02/2013 KARYN OLVERA, BYRON Bruner 709.8 FISSURES SKIN 09/02/2013 SALGUERO DO, LADONNA K 709.8 FISSURES SKIN 09/02/2013 KARYN OLVERA, BYRON Bruner 709.8 FISSURES SKIN 09/02/2013 KARYN OLVERA, BYRON M 709.8 FISSURES SKIN 09/02/2013 SALGUERO DO, LADONNA K 709.8 FISSURES SKIN 09/02/2013 SALGUERO DO, LADONNA K 709.8 FISSURES SKIN 09/02/2013 SALGUERO DO, LADONNA K 709.8 FISSURES SKIN 09/02/2013 SALGUERO DO, LADONNA K 709.8 FISSURES SKIN 09/02/2013 MADL PRECISION THREAD GRINDER OPERATOR, ETELVINA L 709.8 FISSURES SKIN 09/02/2013 MADL PRECISION THREAD GRINDER OPERATOR, ETELVINA L 709.8 FISSURES SKIN 09/02/2013 MADL PRECISION THREAD GRINDER OPERATOR, ETELVINA L 709.8 FISSURES SKIN 09/02/2013 SALGUERO DO, LADONNA K 709.8 FISSURES SKIN 09/02/2013 SALGUERO DO, LADONNA K 709.8 FISSURES SKIN 09/02/2013 MADL PRECISION THREAD GRINDER OPERATOR, ETELVINA L 709.8 FISSURES SKIN 09/02/2013 MADL PRECISION THREAD GRINDER OPERATOR, ETELVINA L 709.8 FISSURES SKIN 09/02/2013 MADL PRECISION THREAD GRINDER OPERATOR, ETELVINA L 709.8 FISSURES SKIN 09/02/2013 MADL PRECISION THREAD GRINDER OPERATOR, ETELVINA L 709.8 FISSURES SKIN 09/02/2013 MADL PRECISION THREAD GRINDER OPERATOR, ETELVINA L 709.8 FISSURES SKIN 09/02/2013 MADL PRECISION THREAD GRINDER OPERATOR, ETELVINA L 709.8 FISSURES SKIN 09/02/2013 MADL PRECISION THREAD GRINDER OPERATOR, ETELVINA L 709.8 FISSURES SKIN 09/02/2013 SALGUERO DO, LADONNA K 709.8 FISSURES SKIN 09/02/2013 SALGUERO DO, LADONNA K 709.8 FISSURES SKIN 09/02/2013 MADL PRECISION THREAD GRINDER OPERATOR, ETELVINA L 709.8 FISSURES SKIN 09/02/2013 SALGUERO DO, LADONNA K 709.8 FISSURES SKIN 09/02/2013 MADL PRECISION THREAD GRINDER OPERATOR, ETELVINA L 709.8 FISSURES SKIN 09/22/2013 [...] 788.1 pain during urination (dysuria) 09/22/2013 MADL PRECISION THREAD GRINDER OPERATOR, ETELVINA L 788.1 pain during urination (dysuria) 09/22/2013 MADL PRECISION THREAD GRINDER OPERATOR, ETELVINA L 788.1 pain during urination (dysuria) 09/22/2013 MADL PRECISION THREAD GRINDER OPERATOR, ETELVINA L 788.1 pain during urination (dysuria) 09/22/2013 SALGUERO DO, LADONNA K 788.1 PAIN DURING URINATION (DYSURIA) 09/22/2013 SALGUERO DO, LADONNA K 788.1 PAIN DURING URINATION (DYSURIA) 09/22/2013 MADL PRECISION THREAD GRINDER OPERATOR, ETELVINA L 788.1 PAIN DURING URINATION (DYSURIA) 09/22/2013 MADL PRECISION THREAD GRINDER OPERATOR, ETELVINA L 788.1 PAIN DURING URINATION (DYSURIA) 09/22/2013 MADL PRECISION THREAD GRINDER OPERATOR, ETELVINA L 788.1 PAIN DURING URINATION (DYSURIA) 09/22/2013 MADL PRECISION THREAD GRINDER OPERATOR, ETELVINA L 788.1 PAIN DURING URINATION (DYSURIA) 09/22/2013 HUGOL PRECISION THREAD GRINDER OPERATOR, ETELVINA L 788.1 PAIN DURING URINATION (DYSURIA) 09/22/2013 MADL PRECISION THREAD GRINDER OPERATOR, ETELVINA L 788.1 PAIN DURING URINATION (DYSURIA) 09/22/2013 MADL PRECISION THREAD GRINDER OPERATOR, ETELVINA L 788.1 PAIN DURING URINATION (DYSURIA) 09/22/2013 SALGUERO DO, LADONNA K 788.1 PAIN DURING URINATION (DYSURIA) 09/22/2013 SALGUERO DO, LADONNA K 788.1 PAIN DURING URINATION (DYSURIA) 09/22/2013 MADL PRECISION THREAD GRINDER OPERATOR, ETELVINA L 788.1 PAIN DURING URINATION (DYSURIA) 09/22/2013 SALGUERO DO, LADONNA K 788.1 PAIN DURING URINATION (DYSURIA) 09/22/2013 MADL PRECISION THREAD GRINDER OPERATOR, ETELVINA L 788.1 PAIN DURING URINATION (DYSURIA) 10/22/2013 EDUARDO VILLEGAS MD Ot 596.51 HYPERTONICITY OF BLADDER 10/22/2013 EDUARDO VILLEGAS MD Ot 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 10/22/2013 EDUARDO VILLEGAS MD Ot 788.30 UNSPECIFIED URINARY INCONTINENCE 10/22/2013 EDUARDO VILLEGAS MD Ot V58.69 OTH MED,LT,CURRENT USE 10/25/2013 HARDEEP DORANTES Ot 892.0 OPEN WOUND OF FOOT 10/25/2013 HARDEEP DORANTES Ot 959.7 LOWER LEG INJURY NOS 10/25/2013 HARDEEP DORANTES Ot E000.8 OTHER EXTERNAL CAUSE STATUS 10/25/2013 HARDEEP DORANTES Ot E849.0 ACCIDENT IN HOME 10/25/2013 HARDEEP DORANTES Ot E916 STRUCK BY FALLING OBJECT 10/25/2013 HARDEEP DORANTES Ot V06.1 [id number], COMBINED [ 11/04/2013 MARLA EVERETT MD Ot V58.2 BLOOD TRANSFUSION, NO DX 11/04/2013 MARLA EVERETT MD Ot V58.32 ENCOUNTER FOR REMOVAL OF SUTURES 12/12/2013 PATRICIA MCDONALD MD Ot 996.78 OTH COMP DUE TO OTH INTRNL ORTHPEDIC DEV 02/11/2014 NOEMY PRAKASH LADONNA K Ot 244.9 HYPOTHYROIDISM NOS 02/11/2014 SALGUERO DO LADONNA K Ot 250.00 DIAB MELVA WO COMPL, TYPE II OR UNSPEC TY 02/11/2014 SALGUERO DO LADONNA K Ot 272.4 HYPERLIPIDEMIA NEC/NOS 02/11/2014 SALGUERO DO LADONNA K Ot 275.2 DIS MAGNESIUM METABOLISM 02/11/2014 NOEMY PRAKASH LADONNA K Ot 278.00 OBESITY, NOS 02/11/2014 NOEMY PRAKASH LADONNA K Ot 300.00 ANXIETY STATE NOS 02/11/2014 NOEMY PRAKASH LADONNA K Ot 305.1 TOBACCO USE DISORDER 02/11/2014 NOEMY PRAKASH LADONNA K Ot 311 DEPRESSIVE DISORDER NEC 02/11/2014 NOEMY PRAKASH LADONNA K Ot 338.29 OTHER CHRONIC PAIN 02/11/2014 SALGUERO DO LADONNA K Ot 401.9 HYPERTENSION NOS 02/11/2014 SALGUERO DO LADONNA K Ot 414.01 CORONARY ATHEROSCLEROSIS OF [place] CORON 02/11/2014 NOEMY PRAKASH LADONNA K Ot 491.22 OBSTRUCTIVE CHRONIC BRONCHITIS WITH ACUT 02/11/2014 NOEMY PRAKASH LADONNA K Ot 530.81 ESOPHAGEAL REFLUX 02/11/2014 NOEMY PRAKASH LADONNA K Ot 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 02/11/2014 TERE SALGUERO DOA K Ot 786.50 CHEST PAIN NOS 02/11/2014 TERE SALGUERO DOA K Ot 790.6 ABN BLOOD CHEMISTRY NEC 02/11/2014 NOEMY PRAKASH LADONNA K Ot 799.02 HYPOXEMIA 02/11/2014 NOEMY PRAKASH LADONNA K Ot V45.82 PERCUTANEOUS TRANSLUM CORON ANGIOPLASTY 02/11/2014 NOEMY PRAKASH LADONNA K Ot V85.39 BODY MASS INDEX 39.0-39.9, ADULT 02/13/2014 THOMPSON QURESHI PRECISION THREAD GRINDER OPERATOR Ot 724.5 BACKACHE NOS 02/27/2014 TERE SALGUERO DOA K 381.01 ACUTE SEROUS OTITIS MEDIA 02/27/2014 NOEMY PRAKASH LADONNA K 381.01 ACUTE SEROUS OTITIS MEDIA 02/27/2014 SALGUERO DO LADONNA K 381.01 ACUTE SEROUS OTITIS MEDIA 02/27/2014 SALGUERO DO LADONNA K 381.01 ACUTE SEROUS OTITIS MEDIA 02/27/2014 HUGOL PRECISION THREAD GRINDER OPERATORETELVINA 381.01 ACUTE SEROUS OTITIS MEDIA 02/27/2014 MADL PRECISION THREAD GRINDER OPERATOR, ETELVINA L 381.01 ACUTE SEROUS OTITIS MEDIA 02/27/2014 MADL PRECISION THREAD GRINDER OPERATOR, ETELVINA L 381.01 ACUTE SEROUS OTITIS MEDIA 02/27/2014 SALGUERO DO, LADONNA K 381.01 ACUTE SEROUS OTITIS MEDIA 02/27/2014 SALGUERO DO, LADONNA K 381.01 ACUTE SEROUS OTITIS MEDIA 02/27/2014 MADL PRECISION THREAD GRINDER OPERATOR, ETELVINA L 381.01 ACUTE SEROUS OTITIS MEDIA 02/27/2014 MADL PRECISION THREAD GRINDER OPERATOR, ETELVINA L 381.01 ACUTE SEROUS OTITIS MEDIA 02/27/2014 MADL PRECISION THREAD GRINDER OPERATOR, ETELVINA L 381.01 ACUTE SEROUS OTITIS MEDIA 02/27/2014 MADL PRECISION THREAD GRINDER OPERATOR, ETELVINA L 381.01 ACUTE SEROUS OTITIS MEDIA 02/27/2014 MADL PRECISION THREAD GRINDER OPERATOR, ETELVINA L 381.01 ACUTE SEROUS OTITIS MEDIA 02/27/2014 MADL PRECISION THREAD GRINDER OPERATOR, ETELVINA L 381.01 ACUTE SEROUS OTITIS MEDIA 02/27/2014 MADL PRECISION THREAD GRINDER OPERATOR, ETELVINA L 381.01 ACUTE SEROUS OTITIS MEDIA 02/27/2014 SALGUERO DO, LADONNA K 381.01 ACUTE SEROUS OTITIS MEDIA 02/27/2014 SALGUERO DO, LADONNA K 381.01 ACUTE SEROUS OTITIS MEDIA 02/27/2014 MADL PRECISION THREAD GRINDER OPERATOR, ETELVINA L 381.01 ACUTE SEROUS OTITIS MEDIA 02/27/2014 SALGUERO DO, LADONNA K 381.01 ACUTE SEROUS OTITIS MEDIA 02/27/2014 MADL PRECISION THREAD GRINDER OPERATOR, ETELVINA L 381.01 ACUTE SEROUS OTITIS MEDIA 05/22/2014 MADL PRECISION THREAD GRINDER OPERATOR, ETELVINA L V16.0 FAMILY HISTORY OF MALIGNANT NEOPLASM OF GASTROINTESTINAL TRACT 05/22/2014 MADL PRECISION THREAD GRINDER OPERATOR, ETELVINA L V16.0 FAMILY HISTORY OF MALIGNANT NEOPLASM OF GASTROINTESTINAL TRACT 05/22/2014 SALGUERO DO, LADONNA K V16.0 FAMILY HISTORY OF MALIGNANT NEOPLASM OF GASTROINTESTINAL TRACT 05/22/2014 SALGUERO DO, LADONNA K V16.0 FAMILY HISTORY OF MALIGNANT NEOPLASM OF GASTROINTESTINAL TRACT 05/22/2014 MADL PRECISION THREAD GRINDER OPERATOR, ETELVINA L V16.0 FAMILY HISTORY OF MALIGNANT NEOPLASM OF GASTROINTESTINAL TRACT 05/22/2014 MADL PRECISION THREAD GRINDER OPERATOR, ETELVINA L V16.0 FAMILY HISTORY OF MALIGNANT NEOPLASM OF GASTROINTESTINAL TRACT 05/22/2014 MADL PRECISION THREAD GRINDER OPERATOR, ETELVINA L V16.0 FAMILY HISTORY OF MALIGNANT NEOPLASM OF GASTROINTESTINAL TRACT 05/22/2014 AISHA PRECISION THREAD GRINDER OPERATOR, ETELVINA L V16.0 FAMILY HISTORY OF MALIGNANT NEOPLASM OF GASTROINTESTINAL TRACT 05/22/2014 AISHA PRECISION THREAD GRINDER OPERATOR, ETELVINA L V16.0 FAMILY HISTORY OF MALIGNANT NEOPLASM OF GASTROINTESTINAL TRACT 05/22/2014 MADL PRECISION THREAD GRINDER OPERATOR, ETELVINA L V16.0 FAMILY HISTORY OF MALIGNANT NEOPLASM OF GASTROINTESTINAL TRACT 05/22/2014 AISHA PRECISION THREAD GRINDER OPERATOR, ETELVINA L V16.0 FAMILY HISTORY OF MALIGNANT NEOPLASM OF GASTROINTESTINAL TRACT 05/22/2014 SALGUERO DO LADONNA K V16.0 FAMILY HISTORY OF MALIGNANT NEOPLASM OF GASTROINTESTINAL TRACT 05/22/2014 SALGUERO DO LADONNA K V16.0 FAMILY HISTORY OF MALIGNANT NEOPLASM OF GASTROINTESTINAL TRACT 05/22/2014 AISHA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 MD [...] MD Ot V74.8 SCREEN-BACTERIAL DIS NEC 11/26/2017 BAIMA, KYLAH L AUDIT ASSOCIATE Ot 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 11/26/2017 BAIMA, KYLAH L AUDIT ASSOCIATE Ot 397.0 TRICUSPID VALVE DISEASE 11/26/2017 BAIMA, KYLAH L AUDIT ASSOCIATE Ot 401.9 HYPERTENSION NOS 11/26/2017 BAIMA, KYLAH L AUDIT ASSOCIATE Ot 414.00 CORON ATHEROSCLER NOS TYPE VESSEL, NATIV 11/26/2017 BAIMA, KYLAH L AUDIT ASSOCIATE Ot 250.00 DIAB MELVA WO COMPL, TYPE II OR UNSPEC TY 11/26/2017 BAIMA, KYLAH L AUDIT ASSOCIATE Ot 272.4 HYPERLIPIDEMIA NEC/NOS 11/26/2017 BAIMA, KYLAH L AUDIT ASSOCIATE Ot 305.1 TOBACCO USE DISORDER 11/26/2017 BAIMA, KYLAH L AUDIT ASSOCIATE Ot 401.9 HYPERTENSION NOS 11/26/2017 BAIMA, KYLAH L AUDIT ASSOCIATE Ot 414.00 CORON ATHEROSCLER NOS TYPE VESSEL, NATIV 11/26/2017 BAIMA, KYLAH L AUDIT ASSOCIATE Ot 424.90 ENDOCARDITIS NOS 11/26/2017 BAIMA, KYLAH L AUDIT ASSOCIATE Ot 496 CHR AIRWAY OBSTRUCT NEC 11/26/2017 PATRICIA MCDONALD MD Ot 996.78 OTH COMP DUE TO OTH INTRNL ORTHPEDIC DEV 11/26/2017 PATRICIA MCDONALD MD Ot V72.63 PRE-PROCEDURAL LABORATORY EXAMINATION 11/26/2017 PATRICIA MCDONALD MD, Ot V72.81 [id number] CARDIOVASCULAR 11/26/2017 PATRICIA MCDONALD MD, Ot V74.8 SCREEN-BACTERIAL DIS NEC 11/26/2017 BYRON BOSS MD Ot 272.4 HYPERLIPIDEMIA NEC/NOS 11/26/2017 KARYN OLVERA, BYRON Bruner Ot 338.29 OTHER CHRONIC PAIN 11/26/2017 KARYN OLVERA, BYRON Bruner Ot 401.9 HYPERTENSION NOS 11/26/2017 BAIMA, KYLAH L AUDIT ASSOCIATE Ot 414.00 CORON ATHEROSCLER NOS TYPE VESSEL, NATIV 11/26/2017 BAIMA, KYLAH L AUDIT ASSOCIATE Ot 429.3 CARDIOMEGALY 11/26/2017 SHANA OLVERA, ALVIN Bruner Ot V72.84 EXAM PRE-OPERATIVE NOS 11/26/2017 BAIMA, KYLAH L AUDIT ASSOCIATE Ot 272.4 HYPERLIPIDEMIA NEC/NOS 11/26/2017 SHANA OLVERA, ALVIN M Ot V72.84 EXAM PRE-OPERATIVE NOS 11/26/2017 KOFI [...] DIZZINESS AND GIDDINESS 11/26/2017 BAIMA, KYLAH L AUDIT ASSOCIATE Ot E78.5 HYPERLIPIDEMIA, UNSPECIFIED 11/26/2017 BAIMA, KYLAH L AUDIT ASSOCIATE Ot I25.9 CHRONIC ISCHEMIC HEART DISEASE, UNSPECIF 11/26/2017 MADL, ETELVINA L AUDIT ASSOCIATE Ot 414.00 CORON ATHEROSCLER NOS TYPE VESSEL, NATIV 11/26/2017 MADL, ETELVINA L AUDIT ASSOCIATE Ot 780.2 SYNCOPE AND COLLAPSE 11/26/2017 MADL, ETELVINA L AUDIT ASSOCIATE Ot V45.82 PERCUTANEOUS TRANSLUM CORON ANGIOPLASTY 11/26/2017 BAIMA, KYLAH L AUDIT ASSOCIATE Ot 272.4 HYPERLIPIDEMIA NEC/NOS 11/26/2017 BAIMA, KYLAH L AUDIT ASSOCIATE Ot 276.9 ELECTROLYT/FLUID DIS NEC 11/26/2017 BAIMA, KYLAH L AUDIT ASSOCIATE Ot 401.9 HYPERTENSION NOS 11/26/2017 BAIMA, KYLAH L AUDIT ASSOCIATE Ot 414.00 CORON ATHEROSCLER NOS TYPE VESSEL, NATIV 11/26/2017 BRYN PRAKASHBILL Ot 250.00 DIAB MELVA WO COMPL, TYPE II OR UNSPEC TY 11/26/2017 BRYN BILL PRAKASH Ot 272.4 HYPERLIPIDEMIA NEC/NOS 11/26/2017 BRYN PRAKASHBILL Ot 414.00 CORON ATHEROSCLER NOS TYPE VESSEL, NATIV 11/26/2017 BRYN PRAKASHBILL Ot 724.5 BACKACHE NOS 11/26/2017 BRYN BILL PRAKASH Ot 733.90 BONE CARTILAGE DIS NOS 11/26/2017 BRYN BILL PRAKASH Ot 715.37 LOC OSTEOARTH NOS-ANKLE 11/26/2017 KOFI [...] Ot 530.81 ESOPHAGEAL REFLUX 11/26/2017 KYLAH CREWS AUDIT ASSOCIATE Ot I71.4 ABDOMINAL AORTIC ANEURYSM, WITHOUT RUPTU 11/26/2017 BRYN BILL PRAKASH Ot 250.00 DIAB MELVA WO COMPL, TYPE II OR UNSPEC TY 11/26/2017 BRYN BILL PRAKASH Ot 959.7 LOWER LEG INJURY NOS 11/26/2017 BRYN BILL PRAKASH Ot E000.8 OTHER EXTERNAL CAUSE STATUS 11/26/2017 AMELIABILL HAYES DO Ot E928.9 ACCIDENT NOS 11/26/2017 GELBILL HAYES DO Ot N39.0 URINARY TRACT INFECTION, SITE NOT SPECIF 11/26/2017 KOFI OLVERA FACC, ALI FACP CCDS Ot E78.5 HYPERLIPIDEMIA, UNSPECIFIED 11/26/2017 KOFI OLVERA FACC, ALI FACP CCDS Ot I25.10 ATHSCL HEART DISEASE OF [place] CORONARY 11/26/2017 ADELFO [place] AUDIT ASSOCIATE Ot I71.4 ABDOMINAL AORTIC ANEURYSM, WITHOUT RUPTU 11/26/2017 BILL CLEMENTE DO Ot Z12.31 ENCNTR SCREEN [...] CCDS Ot I25.10 ATHSCL HEART DISEASE OF [place] CORONARY 12/01/2017 KOFI OLVERA FACC, ALI FACP [...] CCDS Ot I25.10 ATHSCL HEART DISEASE OF [place] CORONARY 12/03/2017 KOFI OLVERA FACC, ALI FACP [...] CCDS Ot I25.10 ATHSCL HEART DISEASE OF [place] CORONARY 12/10/2017 KOFI OLVERA FACC, ALI FACP CCDS Ot I25.5 ISCHEMIC CARDIOMYOPATHY 12/10/2017 KOFI OLVERA FACC, ALI FACP CCDS Ot I73.9 PERIPHERAL VASCULAR DISEASE, UNSPECIFIED 12/10/2017 KOFI OLVERA FACC, ALI FACP CCDS Ot J43.8 OTHER EMPHYSEMA 12/10/2017 KOFI HERNÁNDEZC, ALI FACP CCDS Ot R06.02 SHORTNESS OF BREATH 12/10/2017 KOFI HERNÁNDEZC, ALI FACP CCDS Ot Z72.0 TOBACCO USE 12/17/2017 KOFI HERNÁNDEZC, ALI FACP CCDS Ot E11.9 TYPE 2 DIABETES MELLITUS WITHOUT COMPLIC 12/17/2017 KOFI HERNÁNDEZC, ALI FACP CCDS Ot I10 ESSENTIAL (PRIMARY) HYPERTENSION 12/17/2017 KOFI HERNÁNDEZC, ALI FACP CCDS Ot I25.10 ATHSCL HEART DISEASE OF [place] CORONARY 12/17/2017 KOFI OLVERA FACC, ALI FACP CCDS Ot I25.5 ISCHEMIC CARDIOMYOPATHY 12/17/2017 KOFI HERNÁNDEZC, ALI FACP CCDS Ot I73.9 PERIPHERAL VASCULAR DISEASE, UNSPECIFIED 12/17/2017 KOFI HERNÁNDEZC, ALI FACP CCDS Ot J43.8 OTHER EMPHYSEMA 12/17/2017 KOFI HERNÁNDEZC, ALI FACP CCDS Ot R06.02 SHORTNESS OF BREATH 12/17/2017 KOFI HERNÁNDEZC, ALI FACP CCDS Ot Z72.0 TOBACCO USE 12/22/2017 KYLAH CREWS AUDIT ASSOCIATE Ot I25.5 ISCHEMIC CARDIOMYOPATHY 12/28/2017 KOFI OLVERA FACC, ALI FACP CCDS Ot E11.9 TYPE 2 DIABETES MELLITUS WITHOUT COMPLIC 12/28/2017 KOFI MD FACC, ALI FACP CCDS Ot I10 ESSENTIAL (PRIMARY) HYPERTENSION 12/28/2017 KOFI OLVERA FACC, ALI FACP CCDS Ot I25.10 ATHSCL HEART DISEASE OF [place] CORONARY 12/28/2017 KOFI OLVERA FACC, ALI FACP CCDS Ot I25.5 ISCHEMIC CARDIOMYOPATHY 12/28/2017 KOFI OLVERA FACC, ALI FACP CCDS Ot I73.9 PERIPHERAL VASCULAR DISEASE, UNSPECIFIED 12/28/2017 KOFI OLVERA FACC, ALI FACP CCDS Ot J43.8 OTHER EMPHYSEMA 12/28/2017 KOFI MD FACC, ALI FACP CCDS Ot R06.02 SHORTNESS OF BREATH 12/28/2017 KOFI OLVERA FACC, ALI FACP CCDS Ot Z72.0 TOBACCO USE 12/30/2017 KOFI OLVERA FACC, ALI FACP CCDS Ot E11.9 TYPE 2 DIABETES MELLITUS WITHOUT COMPLIC 12/30/2017 KOFI OLVERA FACC, ALI FACP CCDS Ot E78.4 OTHER HYPERLIPIDEMIA 12/30/2017 KOFI OLVERA FACC, ALI FACP CCDS Ot I25.10 ATHSCL HEART DISEASE OF [place] CORONARY 12/30/2017 KOFI OLVERA FAC, ALI FACP CCDS Ot I25.5 ISCHEMIC CARDIOMYOPATHY 12/30/2017 KOFI OLVERA FAC, ALI FACP CCDS Ot I65.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 AND STENOSIS OF BILATERAL CAL[place] 12/30/2017 KOFI OLVERA FACC, ALI FACP CCDS Ot I73.9 PERIPHERAL VASCULAR DISEASE, UNSPECIFIED 12/30/2017 KOFI OLVERA FACC, ALI FACP CCDS Ot R06.02 SHORTNESS OF BREATH 12/30/2017 KOFI OLVERA [facility], ALI FACP CCDS Ot Z72.0 TOBACCO USE [...] INITIAL ENCOUNTER 01/07/2018 HARDEEP DORANTES Ot Z79.84 PSYCHOLOGY INSTRUCTOR (CURRENT) USE OF ORAL HYPOGLYC 01/07/2018 HARDEEP [...] CCDS Ot I25.10 ATHSCL HEART DISEASE OF [place] CORONARY 01/08/2018 BRADLY KIRBY MD, FACC FACP CCDS Ot I25.5 ISCHEMIC CARDIOMYOPATHY 01/08/2018 KOFI OLVERA FACC, BRADLY FACP CCDS Ot I65.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 AND STENOSIS OF BILATERAL [place] 01/08/2018 KOFI OLVERA FACC, BRADLY FACP CCDS Ot I73.9 PERIPHERAL VASCULAR DISEASE, UNSPECIFIED 01/08/2018 KOFI OLVERA FACC, BRADLY FACP CCDS Ot R06.02 SHORTNESS OF BREATH 01/08/2018 KOFI OLVERA FACC, BRADLY FACP CCDS Ot Z72.0 TOBACCO USE 01/11/2018 [...] INITIAL ENCOUNTER 01/11/2018 HARDEEP DORANTES Ot Z79.84 FDC (CURRENT) USE OF ORAL HYPOGLYC 01/11/2018 HARDEEP [...] INITIAL ENCOUNTER 01/13/2018 HARDEEP DORANTES Ot Z79.84 PSYCHOLOGY INSTRUCTOR (CURRENT) USE OF ORAL HYPOGLYC 01/13/2018 HARDEEP [...] TYPE 2 DIABETES MELLITUS WITHOUT COMPLIC 02/15/2018 MARLA EVERETT MD Ot E78.00 PURE HYPERCHOLESTEROLEMIA, UNSPECIFIED 02/15/2018 MARLA EVERETT MD Ot E78.5 HYPERLIPIDEMIA, UNSPECIFIED 02/15/2018 MARLA EVERETT MD Ot F17.210 NICOTINE DEPENDENCE, CIGARETTES, UNCOMPL 02/15/2018 MARLA EVERETT MD Ot F31.9 BIPOLAR DISORDER, UNSPECIFIED 02/15/2018 MARLA EVERETT MD, Ot F41.9 ANXIETY DISORDER, UNSPECIFIED 02/15/2018 MARLA EVERETT MD, Ot G43.909 MIGRAINE, UNSP, NOT INTRACTABLE, WITHOUT 02/15/2018 MARLA EVERETT MD, Ot I10 ESSENTIAL (PRIMARY) HYPERTENSION 02/15/2018 MARLA EVERETT MD Ot I25.10 ATHSCL HEART DISEASE OF [place] CORONARY 02/15/2018 MARLA EVERETT MD, Ot J43.9 EMPHYSEMA, UNSPECIFIED 02/15/2018 MARLA EVERETT MD, Ot K21.9 GASTRO-ESOPHAGEAL REFLUX DISEASE WITHOUT 02/15/2018 MARLA EVERETT MD Ot R07.89 OTHER CHEST PAIN 02/15/2018 MARLA EVERETT MD, Ot Z79.82 PSYCHOLOGY INSTRUCTOR (CURRENT) USE OF ASPIRIN 02/15/2018 MARLA EVERETT MD, Ot Z79.84 PSYCHOLOGY INSTRUCTOR (CURRENT) USE OF ORAL HYPOGLYC 02/15/2018 MARLA EVERETT MD, Ot Z87.01 PERSONAL HISTORY OF PNEUMONIA (RECURRENT 02/15/2018 MARLA EVERETT MD, Ot Z87.81 PERSONAL HISTORY OF (HEALED) TRAUMATIC F 02/15/2018 MARLA EVERETT MD, Ot Z88.0 ALLERGY STATUS TO PENICILLIN 02/15/2018 MARLA EVERETT MD, Ot Z88.5 ALLERGY STATUS TO NARCOTIC [...] MD Ot I25.10 ATHSCL HEART DISEASE OF [place] CORONARY 02/17/2018 MARLA EVERETT MD, Ot J43.9 EMPHYSEMA, UNSPECIFIED 02/17/2018 MARLA EVERETT MD, Ot K21.9 GASTRO-ESOPHAGEAL REFLUX DISEASE WITHOUT 02/17/2018 MARLA EVERETT MD Ot R07.89 OTHER CHEST PAIN 02/17/2018 MARLA EVERETT MD Ot Z79.82 PSYCHOLOGY INSTRUCTOR (CURRENT) USE OF ASPIRIN 02/17/2018 MARLA EVERETT MD Ot Z79.84 FDC (CURRENT) USE OF ORAL HYPOGLYC 02/17/2018 MARLA [...] PURE HYPERCHOLESTEROLEMIA, UNSPECIFIED 02/21/2018 HUANG DO FELICIA Adrinaa Ot F17.210 NICOTINE DEPENDENCE, CIGARETTES, UNCOMPL 02/21/2018 TRENTON ENCINAS DOA Adriana Ot F32.9 MAJOR DEPRESSIVE DISORDER, SINGLE EPISOD 02/21/2018 HUANG [place] PRAKASHA Adriana Ot F41.9 ANXIETY DISORDER, UNSPECIFIED 02/21/2018 HUANG TRENTON PRAKASHA K Ot G43.909 MIGRAINE, UNSP, NOT INTRACTABLE, WITHOUT 02/21/2018 HUANG PRAKASH FELICIA K Ot I10 ESSENTIAL (PRIMARY) HYPERTENSION 02/21/2018 HUANG TRENTON PRAKASHA K Ot I25.10 ATHSCL HEART DISEASE OF [place] CORONARY 02/21/2018 FELICIA ENCINAS DO Ot J43.9 EMPHYSEMA, UNSPECIFIED 02/21/2018 HUANG TRENTON PRAKASHA K Ot K21.9 GASTRO-ESOPHAGEAL REFLUX DISEASE WITHOUT 02/21/2018 HUANG TRENTON PRAKASHA K Ot N39.0 URINARY TRACT INFECTION, SITE NOT SPECIF 02/21/2018 FELICIA ENCINAS DO Ot R20.2 PARESTHESIA OF SKIN 02/21/2018 TRENTON ENCINAS DOA Adriana Ot R53.1 WEAKNESS 02/21/2018 HUANG TRENTON PRAKASHA Adriana Ot Z79.84 PSYCHOLOGY INSTRUCTOR (CURRENT) USE OF ORAL HYPOGLYC 02/21/2018 FELICIA ENCINAS DO Ot Z87.01 PERSONAL HISTORY OF PNEUMONIA (RECURRENT 02/21/2018 TRENTON ENCINAS DOA K Ot Z88.0 ALLERGY STATUS TO PENICILLIN 02/21/2018 HUANG TR[place]ON PRAKASHA Adriana Ot Z88.6 ALLERGY STATUS TO ANALGESIC AGENT STATUS 02/21/2018 HUANG FELICIA PRAKASH Ot Z88.8 ALLERGY STATUS TO OTH DRUG/MEDS/BIOL SUB 02/21/2018 HUANG TRENTON PRAKASHA K Ot Z90.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 BOTH CERVIX AND UTER 02/21/2018 TRENTON ENCINAS DOA Adriana Ot Z95.5 PRESENCE OF CORONARY ANGIOPLASTY IMPLANT 02/23/2018 TRENTON ENCINAS DOA Adriana Ot E11.9 TYPE 2 DIABETES MELLITUS WITHOUT COMPLIC 02/23/2018 TRENTON ENCINAS DOA K Ot E78.00 PURE HYPERCHOLESTEROLEMIA, UNSPECIFIED 02/23/2018 HUANG TRENTON PRAKASHA K Ot F17.210 NICOTINE DEPENDENCE, CIGARETTES, UNCOMPL 02/23/2018 HUANG TRENTON PRAKASHA Adriana Ot F32.9 MAJOR DEPRESSIVE DISORDER, SINGLE EPISOD 02/23/2018 HUANG DO FELICIA Adriana Ot F41.9 ANXIETY DISORDER, UNSPECIFIED 02/23/2018 HUANG PRAKASH FELICIA Adriana Ot G43.909 MIGRAINE, UNSP, NOT INTRACTABLE, WITHOUT 02/23/2018 HUANGSterling PRAKASH FELICIA K Ot I10 ESSENTIAL (PRIMARY) HYPERTENSION 02/23/2018 HUANG FELICIA Adriana Ot I25.10 ATHSCL HEART DISEASE OF [place] CORONARY 02/23/2018 HUANG DO FELICIA Adriana Ot J43.9 EMPHYSEMA, UNSPECIFIED 02/23/2018 HUANG FELICIA Adriana Ot K21.9 GASTRO-ESOPHAGEAL REFLUX DISEASE WITHOUT 02/23/2018 HUANG FELICIA Adriana Ot N39.0 URINARY TRACT INFECTION, SITE NOT SPECIF 02/23/2018 HUANG PRAKASH FELICIA Adriana Ot R20.2 PARESTHESIA OF SKIN 02/23/2018 HUANG FELICIA Adriana Ot R53.1 WEAKNESS 02/23/2018 HUANG PRAKASH FELICIA Adriana Ot Z79.84 PSYCHOLOGY INSTRUCTOR (CURRENT) USE OF ORAL HYPOGLYC 02/23/2018 HUANG PRAKASH FELICIA Adriana Ot Z87.01 PERSONAL HISTORY OF PNEUMONIA (RECURRENT 02/23/2018 HUANG FELICIA Adriana Ot Z88.0 ALLERGY STATUS TO PENICILLIN 02/23/2018 [...] PREPROCEDURAL EXAMIN 03/02/2018 Ot V76.12 OT SCREEN MAMMO- MALIGN NEOPLASM OF [place] 03/02/2018 EDUARDO VILLEGAS MD Ot 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 03/02/2018 EDUARDO VILLEGAS MD Ot 788.30 UNSPECIFIED URINARY INCONTINENCE 03/02/2018 EDUARDO VILLEGAS MD Ot V72.63 PRE-PROCEDURAL LABORATORY EXAMINATION 03/02/2018 EDUARDO VILLEGAS MD Ot V74.8 SCREEN-BACTERIAL DIS NEC 03/02/2018 EDUADRO VILLEGAS MD Ot 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 03/02/2018 EDUARDO VILLEGAS MD Ot 788.30 UNSPECIFIED URINARY INCONTINENCE 03/02/2018 EDUARDO VILLEGAS MD, Ot V72.63 PRE-PROCEDURAL LABORATORY EXAMINATION 03/02/2018 EDUARDO VILLEGAS MD, Ot V74.8 SCREEN-BACTERIAL DIS NEC 03/02/2018 BAIMA, KYLAH L AUDIT ASSOCIATE Ot 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 03/02/2018 BAIMA, KYLAH L AUDIT ASSOCIATE Ot 397.0 TRICUSPID VALVE DISEASE 03/02/2018 BAIMA, KYLAH L AUDIT ASSOCIATE Ot 401.9 HYPERTENSION NOS 03/02/2018 BAIMA, KYLAH L AUDIT ASSOCIATE Ot 414.00 CORON ATHEROSCLER NOS TYPE VESSEL, NATIV 03/02/2018 BAIMA, KYLAH L AUDIT ASSOCIATE Ot 250.00 DIAB MELVA WO COMPL, TYPE II OR UNSPEC TY 03/02/2018 BAIMA, KYLAH L AUDIT ASSOCIATE Ot 272.4 HYPERLIPIDEMIA NEC/NOS 03/02/2018 BAIMA, KYLAH L AUDIT ASSOCIATE Ot 305.1 TOBACCO USE DISORDER 03/02/2018 BAIMA, KYLAH L AUDIT ASSOCIATE Ot 401.9 HYPERTENSION NOS 03/02/2018 BAIMA, KYLAH L AUDIT ASSOCIATE Ot 414.00 CORON ATHEROSCLER NOS TYPE VESSEL, NATIV 03/02/2018 BAIMA, KYLAH L AUDIT ASSOCIATE Ot 424.90 ENDOCARDITIS NOS 03/02/2018 BAIMA, KYLAH L AUDIT ASSOCIATE Ot 496 CHR AIRWAY OBSTRUCT NEC 03/02/2018 PATRICIA MCDONALD MD Ot 996.78 OTH COMP DUE TO OTH INTRNL ORTHPEDIC DEV 03/02/2018 PATRICIA MCDONALD MD Ot V72.63 PRE-PROCEDURAL LABORATORY EXAMINATION 03/02/2018 PATRICIA MCDONALD MD Ot V72.81 [id number] CARDIOVASCULAR 03/02/2018 PATRICIA MCDONALD MD Ot V74.8 SCREEN-BACTERIAL DIS NEC 03/02/2018 BYRON BOSS MD Ot 272.4 HYPERLIPIDEMIA NEC/NOS 03/02/2018 KARYN MD, BYRON M Ot 338.29 OTHER CHRONIC PAIN 03/02/2018 KARYN OLVERA, BYRON Bruner Ot 401.9 HYPERTENSION NOS 03/02/2018 BAIMA, KYLAH L AUDIT ASSOCIATE Ot 414.00 CORON ATHEROSCLER NOS TYPE VESSEL, NATIV 03/02/2018 BAIMA, KYLAH L AUDIT ASSOCIATE Ot 429.3 CARDIOMEGALY 03/02/2018 SHANA OLVERA, ALVIN Bruner Ot V72.84 EXAM PRE-OPERATIVE NOS 03/02/2018 BAIMA, KYLAH L AUDIT ASSOCIATE Ot 272.4 HYPERLIPIDEMIA NEC/NOS 03/02/2018 SHANA OLVERA, ALVIN M Ot V72.84 EXAM PRE-OPERATIVE NOS 03/02/2018 [...] DIZZINESS AND GIDDINESS 03/02/2018 BAIMA, KYLAH L AUDIT ASSOCIATE Ot E78.5 HYPERLIPIDEMIA, UNSPECIFIED 03/02/2018 BAIMA, KYLAH L AUDIT ASSOCIATE Ot I25.9 CHRONIC ISCHEMIC HEART DISEASE, UNSPECIF 03/02/2018 MADL ETELVINA L AUDIT ASSOCIATE Ot 414.00 CORON ATHEROSCLER NOS TYPE VESSEL, NATIV 03/02/2018 MADL ETELVINA L AUDIT ASSOCIATE Ot 780.2 SYNCOPE AND COLLAPSE 03/02/2018 MADL, ETELVINA L AUDIT ASSOCIATE Ot V45.82 PERCUTANEOUS TRANSLUM CORON ANGIOPLASTY 03/02/2018 BAIMA, KYLAH L AUDIT ASSOCIATE Ot 272.4 HYPERLIPIDEMIA NEC/NOS 03/02/2018 BAIMA, KYLAH L AUDIT ASSOCIATE Ot 276.9 ELECTROLYT/FLUID DIS NEC 03/02/2018 BAIMA, KYLAH L AUDIT ASSOCIATE Ot 401.9 HYPERTENSION NOS 03/02/2018 BAIMA, KYLAH L AUDIT ASSOCIATE Ot 414.00 CORON ATHEROSCLER NOS TYPE VESSEL, NATIV 03/02/2018 BILL CLEMENTE DO Ot 250.00 DIAB MELVA WO COMPL, TYPE II OR UNSPEC TY 03/02/2018 BRYN DOBILL Ot 272.4 HYPERLIPIDEMIA NEC/NOS 03/02/2018 MARAHDER DO, BILL Garcia Ot 414.00 CORON ATHEROSCLER NOS TYPE VESSEL, NATIV 03/02/2018 BRYN PRAKASHBILL Ot 724.5 BACKACHE NOS 03/02/2018 BRYN PRAKASHBILL Ot 733.90 BONE CARTILAGE DIS NOS 03/02/2018 BRYN PRAKASHBILL Ot 715.37 LOC OSTEOARTH NOS-ANKLE 03/02/2018 KOFI [...] Ot 530.81 ESOPHAGEAL REFLUX 03/02/2018 KYLAH CREWS AUDIT ASSOCIATE Ot I71.4 ABDOMINAL AORTIC ANEURYSM, WITHOUT RUPTU 03/02/2018 BRYN PRAKASHBILL Ot 250.00 DIAB MELVA WO COMPL, TYPE II OR UNSPEC TY 03/02/2018 BRYN PRAKASHBILL Ot 959.7 LOWER LEG INJURY NOS 03/02/2018 BRYN PRAKASHBILL Ot E000.8 OTHER EXTERNAL CAUSE STATUS 03/02/2018 BRYN PRAKASHBILL Ot E928.9 ACCIDENT NOS 03/02/2018 BRYN PRAKASHBILL Ot N39.0 URINARY TRACT INFECTION, SITE NOT SPECIF 03/02/2018 KOFI HERNÁNDEZC, ALI FACP CCDS Ot E78.5 HYPERLIPIDEMIA, UNSPECIFIED 03/02/2018 KOFI OLVERA FACC, ALI FACP CCDS Ot I25.10 ATHSCL HEART DISEASE OF [place] CORONARY 03/02/2018 ADELFO [place] AUDIT ASSOCIATE Ot I71.4 ABDOMINAL AORTIC ANEURYSM, WITHOUT RUPTU 03/02/2018 BILL CLEMENTE DO Ot Z12.31 ENCNTR SCREEN MAMMOGRAM FOR MALIGNANT NE 03/02/2018 BILL CLEMENTE DO Ot R92.8 OTH ABN AND INCONCLUSIVE FINDINGS ON DX 03/02/2018 KOFI HERNÁNDEZC, ALI FACP CCDS Ot E11.9 TYPE 2 DIABETES MELLITUS WITHOUT COMPLIC 03/02/2018 KOFI OLVERA FACC, ALI FACP CCDS Ot I10 ESSENTIAL (PRIMARY) HYPERTENSION 03/02/2018 KOFI OLVERA FACC, ALI FACP CCDS Ot I25.10 ATHSCL HEART DISEASE OF [place] CORONARY 03/02/2018 KOFI OLVERA FACC, ALI FACP CCDS Ot I25.5 ISCHEMIC CARDIOMYOPATHY 03/02/2018 KOFI OLVERA FACC, ALI FACP CCDS Ot I73.9 PERIPHERAL VASCULAR DISEASE, UNSPECIFIED 03/02/2018 KOFI OLVERA FACC, ALI FACP CCDS Ot J43.8 OTHER EMPHYSEMA 03/02/2018 KOFI OLVERA FACC, ALI FACP CCDS Ot R06.02 SHORTNESS OF BREATH 03/02/2018 KOFI OLVERA FACC, ALI FACP CCDS Ot Z72.0 TOBACCO USE 03/02/2018 KOFI HERNÁNDEZC, ALI FACP CCDS Ot E11.9 TYPE 2 DIABETES MELLITUS WITHOUT COMPLIC 03/02/2018 KOFI HERNÁNDEZC, ALI FACP CCDS Ot I10 ESSENTIAL (PRIMARY) HYPERTENSION 03/02/2018 KOFI OLVERA FACC, ALI FACP CCDS Ot I25.10 ATHSCL HEART DISEASE OF [place] CORONARY 03/02/2018 KOFI OLVERA FACC, ALI FACP CCDS Ot I25.5 ISCHEMIC CARDIOMYOPATHY 03/02/2018 KOFI OLVERA FACC, ALI FACP CCDS Ot I73.9 PERIPHERAL VASCULAR DISEASE, UNSPECIFIED 03/02/2018 KOFI OLVERA FACC, ALI FACP CCDS Ot J43.8 OTHER EMPHYSEMA 03/02/2018 KOFI HERNÁNDEZC, ALI FACP CCDS Ot R06.02 SHORTNESS OF BREATH 03/02/2018 KOFI MD FACC, ALI FACP CCDS Ot Z72.0 TOBACCO USE 03/02/2018 KOFI OLVERA FACC, ALI FACP CCDS Ot E11.9 TYPE 2 DIABETES MELLITUS WITHOUT COMPLIC 03/02/2018 KOFI OLVERA FACC, ALI FACP CCDS Ot I10 ESSENTIAL (PRIMARY) HYPERTENSION 03/02/2018 KOFI OLVERA FACC, ALI FACP CCDS Ot I25.10 ATHSCL HEART DISEASE OF [place] CORONARY 03/02/2018 KOFI OLVERA FACC, ALI FACP CCDS Ot I25.5 ISCHEMIC CARDIOMYOPATHY 03/02/2018 KOFI OLVERA FACC, ALI FACP CCDS Ot I73.9 PERIPHERAL VASCULAR DISEASE, UNSPECIFIED 03/02/2018 KOFI OLVERA FACC, ALI FACP CCDS Ot J43.8 OTHER EMPHYSEMA 03/02/2018 KOFI OLVERA FACC, ALI FACP CCDS Ot R06.02 SHORTNESS OF BREATH 03/02/2018 KOFI OLVERA FACC, ALI FACP CCDS Ot Z72.0 TOBACCO USE 03/02/2018 KYLAH CREWS Ot I25.5 ISCHEMIC CARDIOMYOPATHY 03/02/2018 KOFI OLVERA FACC, ALI FACP CCDS Ot E11.9 TYPE 2 DIABETES MELLITUS WITHOUT COMPLIC 03/02/2018 KOFI OLVERA FACC, ALI FACP CCDS Ot E78.4 OTHER HYPERLIPIDEMIA 03/02/2018 KOFI OLVERA FACC, ALI FACP CCDS Ot I25.10 ATHSCL HEART DISEASE OF [place] CORONARY 03/02/2018 KOFI OLVERA FAC, ALI FACP CCDS Ot I25.5 ISCHEMIC CARDIOMYOPATHY 03/02/2018 KOFI OLVERA FAC, ALI FACP CCDS Ot I65.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 AND STENOSIS OF BILATERAL CALVERT 03/02/2018 KOFI OLVERA FACC, ALI FACP CCDS Ot I73.9 PERIPHERAL VASCULAR DISEASE, UNSPECIFIED 03/02/2018 KOFI HERNÁNDEZC, ALI FACP CCDS Ot R06.02 SHORTNESS OF [...] 03/03/2018 LEONEL ORTIZ MD Ot Z79.899 OTHER PSYCHOLOGY INSTRUCTOR (CURRENT) DRUG THERAPY 03/03/2018 LEONEL ORTIZ MD [...] 03/04/2018 LEONEL ORTIZ MD Ot Z79.899 OTHER FDC (CURRENT) DRUG THERAPY 03/04/2018 LEONEL ORTIZ MD [...] CCDS Ot I25.10 ATHSCL HEART DISEASE OF [place] CORONARY 03/09/2018 KOFI OLVERA FACC, ALI FACP CCDS Ot I25.5 ISCHEMIC CARDIOMYOPATHY 03/09/2018 KOFI OVLERA FACC, ALI FACP CCDS Ot I44.7 LEFT [...] OLVERA FACC, ALI FACP CCDS Ot Z79.82 PSYCHOLOGY INSTRUCTOR (CURRENT) USE OF ASPIRIN 03/09/2018 KOFI OLVERA FACC, ALI FACP CCDS Ot Z79.84 FDC (CURRENT) USE OF ORAL HYPOGLYC 03/09/2018 KOFI OLVERA FACC, ALI FACP CCDS Ot Z79.899 OTHER FDC (CURRENT) DRUG THERAPY 03/09/2018 KOFI OLVERA FACC, [...] GASTRITIS, UNSPECIFIED, WITHOUT BLEEDING 03/10/2018 LEONEL ORTIZ MD, Ot K44.9 DIAPHRAGMATIC HERNIA WITHOUT OBSTRUCTION 03/10/2018 LEONEL ORTIZ MD Ot Z79.899 OTHER PSYCHOLOGY INSTRUCTOR (CURRENT) DRUG THERAPY 03/10/2018 LEONEL ORTIZ MD, Ot Z88.1 ALLERGY STATUS TO OTHER ANTIBIOTIC AGENT 03/10/2018 LEONEL ORTIZ MD Ot Z88.5 ALLERGY STATUS TO NARCOTIC AGENT STATUS 03/10/2018 LEONEL ORTIZ MD, Ot Z88.6 ALLERGY STATUS [...] CCDS Ot I25.10 ATHSCL HEART DISEASE OF [place] CORONARY 03/10/2018 KOFI OVLERA FACC, ALI FACP CCDS Ot I25.5 ISCHEMIC CARDIOMYOPATHY 03/10/2018 KOFI OLVERA FACC, ALI FACP CCDS Ot I44.7 LEFT BUNDLE-BRANCH BLOCK, UNSPECIFIED 03/10/2018 KOFI OLVERA FACC, ALI FACP CCDS Ot I50.22 CHRONIC SYSTOLIC (CONGESTIVE) HEART FAIL 03/10/2018 KOFI OLVERA FACC, ALI FACP CCDS Ot I65.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 AND STENOSIS OF BILATERAL CALVERT 03/10/2018 KOFI OLVERA FACC, ALI FACP CCDS Ot J44.9 CHRONIC OBSTRUCTIVE PULMONARY DISEASE, U 03/10/2018 KOFI OLVERA FACC, ALI FACP CCDS Ot R00.2 PALPITATIONS 03/10/2018 KOFI OLVERA FACC, ALI FACP CCDS Ot R06.02 SHORTNESS OF BREATH 03/10/2018 KOFI OLVERA FACC, ALI FACP CCDS Ot R13.10 DYSPHAGIA, UNSPECIFIED 03/10/2018 KOFI OLVERA FACC, ALI FACP CCDS Ot Z79.82 FDC (CURRENT) USE OF ASPIRIN 03/10/2018 KOFI OLVERA FACC, BRADLY FACP CCDS Ot Z79.84 PSYCHOLOGY INSTRUCTOR (CURRENT) USE OF ORAL HYPOGLYC 03/10/2018 KOFI OLVERA FACC, BRADLY FACP CCDS Ot Z79.899 OTHER FDC (CURRENT) DRUG THERAPY 03/10/2018 KOFI OLVERA FACC, ALI FACP CCDS Ot Z95.5 PRESENCE OF CORONARY ANGIOPLASTY IMPLANT 03/10/2018 KOFI OLVERA FACC, ALI FACP CCDS [...] CCDS Ot I25.10 ATHSCL HEART DISEASE OF [place] CORONARY 03/10/2018 KOFI OLVERA FACC, ALI FACP CCDS Ot I25.5 ISCHEMIC CARDIOMYOPATHY 03/10/2018 KOFI OLVERA FACC, ALI FACP CCDS Ot I44.7 LEFT BUNDLE-BRANCH BLOCK, UNSPECIFIED 03/10/2018 KOFI OLVERA FACC, ALI FACP CCDS Ot I50.22 CHRONIC SYSTOLIC (CONGESTIVE) HEART FAIL 03/10/2018 KOFI OLVERA FACC, ALI FACP CCDS Ot I65.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 AND STENOSIS OF BILATERAL CALVERT 03/10/2018 KOFI OLVERA FACC, ALI FACP CCDS Ot J44.9 CHRONIC OBSTRUCTIVE PULMONARY DISEASE, U 03/10/2018 KOFI OLVERA FACC, ALI FACP CCDS Ot R00.2 PALPITATIONS 03/10/2018 KOFI OLVERA FACC, ALI FACP CCDS Ot R06.02 SHORTNESS OF BREATH 03/10/2018 KOFI OLVERA FACC, ALI FACP CCDS Ot R13.10 DYSPHAGIA, UNSPECIFIED 03/10/2018 KOFI OLVERA FACC, ALI FACP CCDS Ot Z79.82 PSYCHOLOGY INSTRUCTOR (CURRENT) USE OF ASPIRIN 03/10/2018 KOFI OLVERA FACC, ALI FACP CCDS Ot Z79.84 PSYCHOLOGY INSTRUCTOR (CURRENT) USE OF ORAL HYPOGLYC 03/10/2018 KOFI OLVERA FACC, ALI FACP CCDS Ot Z79.899 OTHER FDC (CURRENT) DRUG THERAPY 03/10/2018 KOFI OLVERA FACC, [...] V74.8 SCREEN-BACTERIAL DIS NEC 04/08/2018 KYLAH CREWS AUDIT ASSOCIATE Ot 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 04/08/2018 KYLAH CREWS L AUDIT ASSOCIATE Ot 397.0 TRICUSPID VALVE DISEASE 04/08/2018 KYLAH CREWS L AUDIT ASSOCIATE Ot 401.9 HYPERTENSION NOS 04/08/2018 SCARLETT CREWSHER L AUDIT ASSOCIATE Ot 414.00 CORON ATHEROSCLER NOS TYPE VESSEL, NATIV 04/08/2018 BAIMA, KYLAH L AUDIT ASSOCIATE Ot 250.00 DIAB MEVLA WO COMPL, TYPE II OR UNSPEC TY 04/08/2018 ELEONORA, KYLAH L AUDIT ASSOCIATE Ot 272.4 HYPERLIPIDEMIA NEC/NOS 04/08/2018 BAIJENNIFFRE, KYLAH L AUDIT ASSOCIATE Ot 305.1 TOBACCO USE DISORDER 04/08/2018 ELEONORA, KYLAH L AUDIT ASSOCIATE Ot 401.9 HYPERTENSION NOS 04/08/2018 BAIJENNIFFER, KYLAH L AUDIT ASSOCIATE Ot 414.00 CORON ATHEROSCLER NOS TYPE VESSEL, NATIV 04/08/2018 ELEONORA, KYLAH L AUDIT ASSOCIATE Ot 424.90 ENDOCARDITIS NOS 04/08/2018 BAIJENNIFFER, KYLAH L AUDIT ASSOCIATE Ot 496 CHR AIRWAY OBSTRUCT NEC 04/08/2018 PATRICIA MCDONALD MD Ot 996.78 OTH COMP DUE TO OTH INTRNL ORTHPEDIC DEV 04/08/2018 PATRICIA MCDONALD MD Ot V72.63 PRE-PROCEDURAL LABORATORY EXAMINATION 04/08/2018 PATRICIA MCDONALD MD Ot V72.81 [id number] CARDIOVASCULAR 04/08/2018 PATRICIA MCDONALD MD Ot V74.8 SCREEN-BACTERIAL DIS NEC 04/08/2018 BYRON BOSS MD Ot 272.4 HYPERLIPIDEMIA NEC/NOS 04/08/2018 BYRON BOSS MD Ot 338.29 OTHER CHRONIC PAIN 04/08/2018 BYRON BOSS MD Ot 401.9 HYPERTENSION NOS 04/08/2018 ELEONORA, KYLAH L AUDIT ASSOCIATE Ot 414.00 CORON ATHEROSCLER NOS TYPE VESSEL, NATIV 04/08/2018 PERLAJENNIFFER KYLAH L AUDIT ASSOCIATE Ot 429.3 CARDIOMEGALY 04/08/2018 ALVIN SALDANA MD Ot V72.84 EXAM PRE-OPERATIVE NOS 04/08/2018 BAIMA, KYLAH L AUDIT ASSOCIATE Ot 272.4 HYPERLIPIDEMIA NEC/NOS 04/08/2018 ALVIN SALDANA MD Ot V72.84 EXAM PRE-OPERATIVE NOS 04/08/2018 KOFI OLVERA FACTj, ALI FACP CCDS Ot 272.4 HYPERLIPIDEMIA NEC/NOS 04/08/2018 KOFI OLVERA FACTj, ALI FACP CCDS Ot 414.00 CORON ATHEROSCLER NOS TYPE VESSEL, NATIV 04/08/2018 KOFI OLVERA FACC, ALI FACP CCDS Ot 414.8 CHR ISCHEMIC HRT DIS NEC 04/08/2018 KOFI OLVERA FACC, ALI FACP CCDS Ot 458.9 HYPOTENSION NOS 04/08/2018 KOFI OLVERA FACC, BRADLY FACP CCDS Ot 780.4 DIZZINESS AND GIDDINESS 04/08/2018 BAIKYLAH ABAD AUDIT ASSOCIATE Ot E78.5 HYPERLIPIDEMIA, UNSPECIFIED 04/08/2018 BAIMAKYLAH L AUDIT ASSOCIATE Ot I25.9 CHRONIC ISCHEMIC HEART DISEASE, UNSPECIF 04/08/2018 MADL, ETELVINA L AUDIT ASSOCIATE Ot 414.00 CORON ATHEROSCLER NOS TYPE VESSEL, NATIV 04/08/2018 MADL, ETELVINA L AUDIT ASSOCIATE Ot 780.2 SYNCOPE AND COLLAPSE 04/08/2018 MADL, ETELVINA Goodman AUDIT ASSOCIATE Ot V45.82 PERCUTANEOUS TRANSLUM CORON ANGIOPLASTY 04/08/2018 BAIKYLAH ABAD L AUDIT ASSOCIATE Ot 272.4 HYPERLIPIDEMIA NEC/NOS 04/08/2018 BAIKYLAH ABAD L AUDIT ASSOCIATE Ot 276.9 ELECTROLYT/FLUID DIS NEC 04/08/2018 BAIKYLAH ABAD L AUDIT ASSOCIATE Ot 401.9 HYPERTENSION NOS 04/08/2018 BAIKYLAH ABAD L AUDIT ASSOCIATE Ot 414.00 CORON ATHEROSCLER NOS TYPE VESSEL, NATIV 04/08/2018 AMELIAFREDDY DOBILL A Ot 250.00 DIAB MELVA WO COMPL, TYPE II OR UNSPEC TY 04/08/2018 AMELIABILL HAYES DO Ot 272.4 HYPERLIPIDEMIA NEC/NOS 04/08/2018 AMELIASAYDASEAN BILL PRAKASH Ot 414.00 CORON ATHEROSCLER NOS TYPE VESSEL, NATIV 04/08/2018 AMELIASAYDASEAN BILL PRAKASH Ot 724.5 BACKACHE NOS 04/08/2018 AMELIABILL HAYES DO Ot 733.90 BONE CARTILAGE DIS NOS 04/08/2018 BILL CLEMENTE DO Ot 715.37 LOC OSTEOARTH NOS-ANKLE 04/08/2018 KOFI OLVERA FACC, BRADLY FACP CCDS Ot 250.00 DIAB MELVA WO COMPL, TYPE II OR UNSPEC TY 04/08/2018 KOFI OLVERA FACC, BRADLY FACP CCDS Ot 272.4 HYPERLIPIDEMIA NEC/NOS 04/08/2018 KOFI OLVERA FACC, BRADLY FACP CCDS Ot 278.00 OBESITY, NOS 04/08/2018 KOFI OLVERA FACC, BRADLY FACP CCDS Ot 305.1 TOBACCO USE DISORDER 04/08/2018 KOFI OLVERA FACC, BRDALY FACP CCDS Ot 401.9 HYPERTENSION NOS 04/08/2018 KOFI OLVERA FACC, BRADLY FACP CCDS Ot 414.00 CORON ATHEROSCLER NOS TYPE VESSEL, NATIV 04/08/2018 KOFI OLVERA FACC, BRADLY FACP CCDS Ot 447.72 ABDOMINAL AORTIC ECTASIA 04/08/2018 KOFI OLVERA FACC, BRADLY FACP CCDS Ot 458.9 HYPOTENSION NOS 04/08/2018 KOFI OLVERA FACC, BRADLY FACP CCDS Ot 496 CHR AIRWAY OBSTRUCT NEC 04/08/2018 KOFI OLVERA FACC, BRADLY FACP CCDS Ot 530.81 ESOPHAGEAL REFLUX 04/08/2018 KYLAH CREWS AUDIT ASSOCIATE Ot I71.4 ABDOMINAL AORTIC ANEURYSM, WITHOUT RUPTU 04/08/2018 BRYN PRAKASH, BILL Garcia Ot 250.00 DIAB MELVA WO COMPL, TYPE II OR UNSPEC TY 04/08/2018 BRYN PRAKASHBILL Ot 959.7 LOWER LEG INJURY NOS 04/08/2018 BRYN PRAKASHBILL Ot E000.8 OTHER EXTERNAL CAUSE STATUS 04/08/2018 BRYN PRAKASHBILL Ot E928.9 ACCIDENT NOS 04/08/2018 [facility] Ot N39.0 URINARY TRACT INFECTION, SITE NOT SPECIF 04/08/2018 KOFI OLVERA FACC, BRADLY FACP CCDS Ot E78.5 HYPERLIPIDEMIA, UNSPECIFIED 04/08/2018 KOFI OLVERA FACC, BRADLY FACP CCDS Ot I25.10 ATHSCL HEART DISEASE OF [place] CORONARY 04/08/2018 ADELFO WASHINGTON AUDIT ASSOCIATE Ot I71.4 ABDOMINAL AORTIC ANEURYSM, WITHOUT RUPTU [...] CCDS Ot I25.10 ATHSCL HEART DISEASE OF [place] CORONARY 04/08/2018 KOFI OLVERA FACC, BRADLY FACP CCDS Ot I25.5 ISCHEMIC CARDIOMYOPATHY 04/08/2018 KOFI OLVERA FACC, BRADLY FACP CCDS [...] CCDS Ot I25.10 ATHSCL HEART DISEASE OF [place] CORONARY 04/08/2018 KOFI OLVERA FACC, ALI FACP CCDS Ot I25.5 ISCHEMIC CARDIOMYOPATHY 04/08/2018 KOFI OLVERA FACC, ALI FACP CCDS Ot I73.9 PERIPHERAL VASCULAR DISEASE, UNSPECIFIED 04/08/2018 KOFI OLVERA FACC, ALI FACP CCDS Ot J43.8 OTHER EMPHYSEMA 04/08/2018 KOFI OLVERA FACC, ALI FACP CCDS Ot R06.02 SHORTNESS OF BREATH 04/08/2018 KOFI OLVERA FACC, ALI FACP CCDS Ot Z72.0 TOBACCO USE 04/08/2018 KOFI OLVERA FAC, ALI FACP CCDS Ot E11.9 TYPE 2 DIABETES MELLITUS WITHOUT COMPLIC 04/08/2018 KOFI OLVERA FACC, ALI FACP CCDS Ot I10 ESSENTIAL (PRIMARY) HYPERTENSION 04/08/2018 KOFI OLVERA FACC, ALI FACP CCDS Ot I25.10 ATHSCL HEART DISEASE OF [place] CORONARY 04/08/2018 KOFI OLVERA FACC, ALI FACP CCDS Ot I25.5 ISCHEMIC CARDIOMYOPATHY 04/08/2018 KOFI OLVERA FACC, ALI FACP CCDS Ot I73.9 PERIPHERAL VASCULAR DISEASE, UNSPECIFIED 04/08/2018 KOFI OLVERA FACC, ALI FACP CCDS Ot J43.8 OTHER EMPHYSEMA 04/08/2018 KOFI OLVERA FACC, ALI FACP CCDS Ot R06.02 SHORTNESS OF BREATH 04/08/2018 KOFI OLVERA FACC, ALI FACP CCDS Ot Z72.0 TOBACCO USE 04/08/2018 KYLAH CREWS AUDIT ASSOCIATE Ot I25.5 ISCHEMIC CARDIOMYOPATHY 04/08/2018 KOFI OLVERA FACC, ALI FACP CCDS Ot E11.9 TYPE 2 DIABETES MELLITUS WITHOUT COMPLIC 04/08/2018 KOFI OLVERA FACC, ALI FACP CCDS Ot E78.4 OTHER HYPERLIPIDEMIA 04/08/2018 KOFI OLVERA FACC, ALI FACP CCDS Ot I25.10 ATHSCL HEART DISEASE OF [place] CORONARY 04/08/2018 KOFI OLVERA FACC, ALI FACP CCDS Ot I25.5 ISCHEMIC CARDIOMYOPATHY 04/08/2018 KOFI HERNÁNDEZC, ALI FACP CCDS Ot I65.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 AND STENOSIS OF BILATERAL CALVERT 04/08/2018 KOFI OLVERA FACC, ALI FACP CCDS Ot I73.9 PERIPHERAL VASCULAR DISEASE, UNSPECIFIED 04/08/2018 KOFI OLVERA FACC, ALI FACP CCDS Ot R06.02 SHORTNESS OF BREATH 04/08/2018 KOFI OLVERA FACC, ALI FACP CCDS Ot Z72.0 TOBACCO USE 04/08/2018 KOFI OLVERA FACC, ALI FACP CCDS Ot E66.9 OBESITY, UNSPECIFIED 04/08/2018 KOFI OLVREA FACC, ALI FACP CCDS Ot I10 ESSENTIAL (PRIMARY) HYPERTENSION 04/08/2018 KOFI OLVERA FACC, ALI FACP CCDS Ot I25.10 ATHSCL HEART DISEASE OF [place] CORONARY 04/08/2018 KOFI OLVERA FACC, ALI FACP [...] OF OTHER VASCULAR IMPLANTS AND 04/08/2018 KOFI OLVERA FACC, ALI FACP CCDS Ot E66.9 OBESITY, UNSPECIFIED 04/08/2018 KOFI HERNÁNDEZC, ALI FACP CCDS Ot I10 ESSENTIAL (PRIMARY) HYPERTENSION 04/08/2018 KOFI MD FACC, ALI FACP CCDS Ot I25.10 ATHSCL HEART DISEASE OF [place] CORONARY 04/08/2018 KOFI OLVERA FACC, ALI FACP [...] OF OTHER VASCULAR IMPLANTS AND 04/08/2018 KOFI OLVERA FACC, ALI FACP CCDS Ot E11.9 TYPE 2 DIABETES MELLITUS WITHOUT COMPLIC 04/08/2018 KOFI OLVERA FACC, ALI FACP CCDS Ot I10 ESSENTIAL (PRIMARY) HYPERTENSION 04/08/2018 KOFI OLVERA FACC, ALI FACP CCDS Ot I25.10 ATHSCL HEART DISEASE OF [place] CORONARY 04/08/2018 KOFI OLVERA FACTj, ALI FACP CCDS Ot I25.5 ISCHEMIC CARDIOMYOPATHY 04/08/2018 KOFI OLVERA FACC, ALI FACP CCDS Ot I73.9 PERIPHERAL VASCULAR DISEASE, UNSPECIFIED 04/08/2018 KOFI OLVERA FACC, ALI FACP CCDS Ot J43.8 OTHER EMPHYSEMA 04/08/2018 KOFI OLVERA FACC, ALI FACP CCDS Ot R06.02 SHORTNESS OF BREATH 04/08/2018 KOFI OLVERA FACC, ALI FACP CCDS Ot Z72.0 TOBACCO USE 04/23/2018 KOFI HERNÁNDEZC, ALI FACP CCDS Ot E66.9 OBESITY, UNSPECIFIED 04/23/2018 KOFI HERNÁNDEZC, ALI FACP CCDS Ot I10 ESSENTIAL (PRIMARY) HYPERTENSION 04/23/2018 KOFI HERNÁNDEZC, ALI FACP CCDS Ot I25.10 ATHSCL HEART DISEASE OF [place] CORONARY 04/23/2018 KOFI OLVERA FACC, ALI FACP CCDS Ot I65.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 AND STENOSIS OF BILATERAL CALVERT 04/23/2018 KOFI OLVERA FACC, ALI FACP CCDS Ot I71.4 ABDOMINAL AORTIC ANEURYSM, WITHOUT RUPTU 04/23/2018 KOFI OLVERA FAC, ALI FACP CCDS Ot R07.89 OTHER CHEST PAIN 04/23/2018 KOFI OLVERA FACTj, ALI FACP CCDS Ot R91.8 OTHER NONSPECIFIC ABNORMAL FINDING OF [place]ON[place] 04/23/2018 KOFI OLVERA FACTj, ALI FACP CCDS Ot Z72.0 TOBACCO USE 04/23/2018 KOFI OLVERA FACTj, ALI FACP CCDS Ot Z95.828 PRESENCE OF [...] SCREEN-BACTERIAL DIS NEC 04/23/2018 ELEONORA KYLAH L AUDIT ASSOCIATE Ot 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 04/23/2018 ELEONORA KYLAH L AUDIT ASSOCIATE Ot 397.0 TRICUSPID VALVE DISEASE 04/23/2018 ELEONORA KYLAH L AUDIT ASSOCIATE Ot 401.9 HYPERTENSION NOS 04/23/2018 BAIMA, KYLAH L AUDIT ASSOCIATE Ot 414.00 CORON ATHEROSCLER NOS TYPE VESSEL, NATIV 04/23/2018 BAIMA, KYLAH L AUDIT ASSOCIATE Ot 250.00 DIAB MELVA WO COMPL, TYPE II OR UNSPEC TY 04/23/2018 BAIMA, KYLAH L AUDIT ASSOCIATE Ot 272.4 HYPERLIPIDEMIA NEC/NOS 04/23/2018 BAIMA, KYLAH L AUDIT ASSOCIATE Ot 305.1 TOBACCO USE DISORDER 04/23/2018 BAIMA, KYLAH L AUDIT ASSOCIATE Ot 401.9 HYPERTENSION NOS 04/23/2018 BAIMA, KYLAH L AUDIT ASSOCIATE Ot 414.00 CORON ATHEROSCLER NOS TYPE VESSEL, NATIV 04/23/2018 ELEONORA KYLAH L AUDIT ASSOCIATE Ot 424.90 ENDOCARDITIS NOS 04/23/2018 ELEONORA KYLAH L AUDIT ASSOCIATE Ot 496 CHR AIRWAY OBSTRUCT NEC 04/23/2018 PATRICIA MCDONALD MD Ot 996.78 OTH COMP DUE TO OTH INTRNL ORTHPEDIC DEV 04/23/2018 PATRICIA MCDONALD MD Ot V72.63 PRE-PROCEDURAL LABORATORY EXAMINATION 04/23/2018 PATRICIA MCDONALD MD Ot V72.81 [id number] CARDIOVASCULAR 04/23/2018 PATRICIA MCDONALD MD Ot V74.8 SCREEN-BACTERIAL DIS NEC 04/23/2018 KARYN OLVERA, BYRON Bruner Ot 272.4 HYPERLIPIDEMIA NEC/NOS 04/23/2018 BYRON BOSS MD Ot 338.29 OTHER CHRONIC PAIN 04/23/2018 KARYN OLVERA, BYRON Bruner Ot 401.9 HYPERTENSION NOS 04/23/2018 KYLAH CREWS L AUDIT ASSOCIATE Ot 414.00 CORON ATHEROSCLER NOS TYPE VESSEL, NATIV 04/23/2018 ELEONORA KYLAH L AUDIT ASSOCIATE Ot 429.3 CARDIOMEGALY 04/23/2018 SHANA OLVERA, ALVIN Bruner Ot V72.84 EXAM PRE-OPERATIVE NOS 04/23/2018 KYLAH CREWS L AUDIT ASSOCIATE Ot 272.4 HYPERLIPIDEMIA NEC/NOS 04/23/2018 SHANA OLVERA, ALVIN Bruner Ot V72.84 EXAM PRE-OPERATIVE NOS 04/23/2018 KOFI OLVERA FACC, ALI FACP [...] CCDS Ot 780.4 DIZZINESS AND GIDDINESS 04/23/2018 ELEONORA KYLAH L AUDIT ASSOCIATE Ot E78.5 HYPERLIPIDEMIA, UNSPECIFIED 04/23/2018 ELEONORA KYLAH L AUDIT ASSOCIATE Ot I25.9 CHRONIC ISCHEMIC HEART DISEASE, UNSPECIF 04/23/2018 ETELVINA LEONARD L AUDIT ASSOCIATE Ot 414.00 CORON ATHEROSCLER NOS TYPE VESSEL, NATIV 04/23/2018 ETELVINA LEONARD AUDIT ASSOCIATE Ot 780.2 SYNCOPE AND COLLAPSE 04/23/2018 ETELVINA LEONARD AUDIT ASSOCIATE Ot V45.82 PERCUTANEOUS TRANSLUM CORON ANGIOPLASTY 04/23/2018 KYLAH CREWS AUDIT ASSOCIATE Ot 272.4 HYPERLIPIDEMIA NEC/NOS 04/23/2018 KYLAH CREWS AUDIT ASSOCIATE Ot 276.9 ELECTROLYT/FLUID DIS NEC 04/23/2018 KYLAH CREWS AUDIT ASSOCIATE Ot 401.9 HYPERTENSION NOS 04/23/2018 KYLAH CREWS AUDIT ASSOCIATE Ot 414.00 CORON ATHEROSCLER NOS TYPE VESSEL, NATIV 04/23/2018 GELLENDER DO, BILL A Ot 250.00 DIAB MELVA WO COMPL, TYPE II OR UNSPEC TY 04/23/2018 GELLENDER DO BILL A Ot 272.4 HYPERLIPIDEMIA NEC/NOS 04/23/2018 GELLENDER DO, BILL A Ot 414.00 CORON ATHEROSCLER NOS TYPE VESSEL, NATIV 04/23/2018 BILL CLEMENTE DO A Ot 724.5 BACKACHE NOS 04/23/2018 AMELIALENDER DO, BILL A Ot 733.90 BONE CARTILAGE DIS NOS 04/23/2018 GELLENDER DO BILL A Ot 715.37 LOC OSTEOARTH NOS-ANKLE [...] FACP CCDS Ot 530.81 ESOPHAGEAL REFLUX 04/23/2018 KYLAH CREWS AUDIT ASSOCIATE Ot I71.4 ABDOMINAL AORTIC ANEURYSM, WITHOUT RUPTU [...] SITE NOT SPECIF 04/23/2018 KOFI OLVERA FACC, BRADLY FACP CCDS Ot E78.5 HYPERLIPIDEMIA, UNSPECIFIED 04/23/2018 KOFI OLVERA FACC, ALI FACP CCDS Ot I25.10 ATHSCL HEART DISEASE OF [place] CORONARY 04/23/2018 ADELFO WASHINGTON AUDIT ASSOCIATE Ot I71.4 ABDOMINAL AORTIC ANEURYSM, WITHOUT RUPTU [...] CCDS Ot I25.10 ATHSCL HEART DISEASE OF [place] CORONARY 04/23/2018 KOFI OLVERA FACC, BRADLY FACP CCDS Ot I25.5 ISCHEMIC CARDIOMYOPATHY 04/23/2018 [...] CCDS Ot I25.10 ATHSCL HEART DISEASE OF [place] CORONARY 04/23/2018 KOFI OLVERA FACC, ALI FACP [...] CCDS Ot I25.10 ATHSCL HEART DISEASE OF [place] CORONARY 04/23/2018 KOFI OLVERA FACC, ALI FACP CCDS Ot I25.5 ISCHEMIC CARDIOMYOPATHY 04/23/2018 KOFI OLVERA FACC, ALI FACP CCDS Ot I73.9 PERIPHERAL VASCULAR DISEASE, UNSPECIFIED 04/23/2018 KOFI HERNÁNDEZC, ALI FACP CCDS Ot J43.8 OTHER EMPHYSEMA 04/23/2018 KOFI OLVERA FACC, ALI FACP CCDS Ot R06.02 SHORTNESS OF BREATH 04/23/2018 KOFI HERNÁNDEZC, ALI FACP CCDS Ot Z72.0 TOBACCO USE 04/23/2018 KYLAH CREWS L AUDIT ASSOCIATE Ot I25.5 ISCHEMIC CARDIOMYOPATHY 04/23/2018 KOFI OLVERA FACC, ALI FACP CCDS Ot E11.9 TYPE 2 DIABETES MELLITUS WITHOUT COMPLIC 04/23/2018 KOFI OLVERA FACC, ALI FACP CCDS Ot E78.4 OTHER HYPERLIPIDEMIA 04/23/2018 KOFI OLVERA FACC, ALI FACP CCDS Ot I25.10 ATHSCL HEART DISEASE OF [place] CORONARY 04/23/2018 KOFI OLVERA FACC, ALI FACP CCDS Ot I25.5 ISCHEMIC CARDIOMYOPATHY 04/23/2018 KOFI HERNÁNDEZ, ALI FACP CCDS Ot I65.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 AND STENOSIS OF BILATERAL CALVERT 04/23/2018 KOFI OLVERA [facility], ALI FACP CCDS Ot I73.9 PERIPHERAL VASCULAR DISEASE, UNSPECIFIED 04/23/2018 KOFI OLVERA [facility], ALI FACP CCDS Ot R06.02 SHORTNESS OF BREATH 04/23/2018 KOFI OLVERA [facility], ALI FACP CCDS Ot Z72.0 TOBACCO USE 04/23/2018 KOFI OLVERA [facility], ALI FACP CCDS Ot E66.9 OBESITY, UNSPECIFIED 04/23/2018 KOFI OLVERA [facility], ALI FACP CCDS Ot I10 ESSENTIAL (PRIMARY) HYPERTENSION 04/23/2018 KOFI OLVERA [facility], ALI FACP CCDS Ot I25.10 ATHSCL HEART DISEASE OF [place] CORONARY 04/23/2018 KOFI OLVERA [facility], ALI FACP CCDS Ot I65.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 AND STENOSIS OF BILATERAL CALVERT 04/23/2018 KO[facility], [facility] FACP CCDS Ot I71.4 ABDOMINAL AORTIC ANEURYSM, WITHOUT RUPTU 04/23/2018 KOFI OLVERA [facility], ALI FACP CCDS Ot R07.89 OTHER CHEST PAIN 04/23/2018 KOFI OLVERA [facility], ALI FACP CCDS Ot R91.8 OTHER NONSPECIFIC ABNORMAL FINDING OF [place]ON[place] 04/23/2018 KOFI HERNÁNDEZ, ALI FACP CCDS Ot Z72.0 TOBACCO USE 04/23/2018 KOFI OLVERA [facility], ALI FACP CCDS Ot Z95.828 PRESENCE OF OTHER VASCULAR IMPLANTS AND 04/25/2018 JESSY PANDEY PRECISION THREAD GRINDER OPERATOR Ot R06.83 SNORING 04/25/2018 JESSY PANDEY PRECISION THREAD GRINDER OPERATOR Ot R09.02 HYPOXEMIA 04/28/2018 JESSY PANDEY PRECISION THREAD GRINDER OPERATOR Ot R06.83 SNORING 04/28/2018 JESSY PANDEY PRECISION THREAD GRINDER OPERATOR Ot R09.02 HYPOXEMIA 05/14/2018 THOMPSON QURESHI [...] APRN Ot I25.10 ATHSCL HEART DISEASE OF [place] CORONARY 05/14/2018 THOMPSON QURESHI APRN, Ot J43.9 EMPHYSEMA, UNSPECIFIED 05/14/2018 THOMPSON QURESHI APRN Ot K21.9 GASTRO-ESOPHAGEAL REFLUX DISEASE WITHOUT 05/14/2018 THOMPSON QURESHI APRN Ot M25.571 PAIN IN RIGHT ANKLE AND JOINTS OF RIGHT 05/14/2018 THOMPOSN QURESHI APRN Ot S96.911A STRAIN OF UNSP MSL/TND AT ANK/FT LEVEL, 05/14/2018 THOMPSON QURESHI APRN Ot W18.30XA FALL ON SAME LEVEL, UNSPECIFIED, INITIAL 05/14/2018 THOMPSON QURESHI APRN Ot Z79.82 PSYCHOLOGY INSTRUCTOR (CURRENT) USE OF ASPIRIN 05/14/2018 THOMPSON QURESHI APRN Ot Z79.84 FDC (CURRENT) USE OF ORAL HYPOGLYC 05/14/2018 THOMPSON [...] APRN Ot I25.10 ATHSCL HEART DISEASE OF [place] CORONARY 05/17/2018 THOMPSON QURESHI APRN Ot J43.9 [...] INITIAL 05/17/2018 THOMPSON QURESHI APRN Ot Z79.82 FDC (CURRENT) USE OF ASPIRIN 05/17/2018 THOMPSON QURESHI APRN Ot Z79.84 FDC (CURRENT) USE OF ORAL HYPOGLYC 05/17/2018 THOPMSON QURESHI APRN Ot Z87.81 PERSONAL HISTORY OF [...] FOR OTHER PREPROCEDURAL EXAMIN 07/30/2018 KYLAH CREWS AUDIT ASSOCIATE Ot I25.5 ISCHEMIC CARDIOMYOPATHY 07/30/2018 KYLAH CREWS AUDIT ASSOCIATE Ot I25.5 ISCHEMIC CARDIOMYOPATHY 07/30/2018 JESSY PANDEY APRN Ot J44.9 CHRONIC OBSTRUCTIVE PULMONARY DISEASE, U 07/30/2018 LEONEL ORTIZ MD Ot E11.40 TYPE 2 DIABETES MELLITUS WITH DIABETIC N 07/30/2018 LEONEL ORTIZ MD Ot I10 ESSENTIAL (PRIMARY) HYPERTENSION 07/30/2018 LEONEL ORTIZ MD Ot I25.10 ATHSCL HEART DISEASE OF [place] CORONARY 07/30/2018 LEONEL ORTIZ MD, Ot J44.9 CHRONIC OBSTRUCTIVE PULMONARY DISEASE, U 07/30/2018 LEONEL ORTIZ MD Ot J45.909 UNSPECIFIED ASTHMA, UNCOMPLICATED 07/30/2018 LEONEL ORTIZ MD Ot K21.9 GASTRO-ESOPHAGEAL REFLUX DISEASE WITHOUT 07/30/2018 LEONEL ORTIZ MD Ot 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/O PERFORATION OR AB 07/30/2018 LEONEL ORTIZ MD, Ot K62.5 HEMORRHAGE OF ANUS AND RECTUM 07/30/2018 LEONEL ORTIZ MD, Ot K64.0 FIRST DEGREE HEMORRHOIDS 07/30/2018 LEONEL ORTIZ MD, Ot Z79.84 PSYCHOLOGY INSTRUCTOR (CURRENT) USE OF ORAL HYPOGLYC 07/30/2018 LEONEL ORTIZ MD, Ot Z80.0 FAMILY HISTORY OF MALIGNANT NEOPLASM OF 07/30/2018 LEONEL ORTIZ MD, Ot Z87.891 PERSONAL HISTORY OF NICOTINE DEPENDENCE 08/01/2018 JESSY PANDEY APRN Ot J44.9 CHRONIC OBSTRUCTIVE PULMONARY DISEASE, U 08/01/2018 JESSY PANDEY APRN Ot R06.02 SHORTNESS OF BREATH 08/04/2018 LEONEL ORTIZ MD Ot E11.40 TYPE 2 DIABETES MELLITUS WITH DIABETIC N 08/04/2018 LEONEL ORTIZ MD Ot I10 ESSENTIAL (PRIMARY) HYPERTENSION 08/04/2018 LEONEL ORTIZ MD Ot I25.10 ATHSCL HEART DISEASE OF [place] CORONARY 08/04/2018 LEONEL ORTIZ MD, Ot J44.9 CHRONIC OBSTRUCTIVE PULMONARY DISEASE, U 08/04/2018 LEONEL ORTIZ MD, Ot J45.909 UNSPECIFIED ASTHMA, UNCOMPLICATED 08/04/2018 LEONEL ORTIZ MD, Ot K21.9 GASTRO-ESOPHAGEAL REFLUX DISEASE WITHOUT 08/04/2018 LEONEL ORTIZ MD, Ot 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/O PERFORATION OR AB 08/04/2018 LEONEL ORTIZ MD Ot K62.5 HEMORRHAGE OF ANUS AND RECTUM 08/04/2018 LEONEL ORTIZ MD Ot K64.0 FIRST DEGREE HEMORRHOIDS 08/04/2018 LEONEL ORTIZ MD, Ot Z79.84 FDC (CURRENT) USE OF ORAL HYPOGLYC 08/04/2018 LEONEL ORTIZ MD, Ot Z80.0 FAMILY HISTORY OF MALIGNANT NEOPLASM OF 08/04/2018 LEONEL ORTIZ MD, Ot Z87.891 PERSONAL HISTORY OF NICOTINE DEPENDENCE 08/04/2018 JESSY PANDEY APRN Ot J44.9 CHRONIC OBSTRUCTIVE PULMONARY DISEASE, U 08/04/2018 JESSY PANDEY APRN Ot R06.02 SHORTNESS OF BREATH 08/05/2018 LEONEL ORTIZ MD Ot E11.40 TYPE 2 DIABETES MELLITUS WITH DIABETIC N 08/05/2018 LEONEL ORTIZ MD Ot I10 ESSENTIAL (PRIMARY) HYPERTENSION 08/05/2018 LEONEL ORTIZ MD Ot I25.10 ATHSCL HEART DISEASE OF [place] CORONARY 08/05/2018 LEONEL ORTIZ MD, Ot J44.9 CHRONIC OBSTRUCTIVE PULMONARY DISEASE, U 08/05/2018 LEONEL ORTIZ MD, Ot J45.909 UNSPECIFIED ASTHMA, UNCOMPLICATED 08/05/2018 LEONEL ORTIZ MD Ot K21.9 GASTRO-ESOPHAGEAL REFLUX DISEASE WITHOUT 08/05/2018 LEONEL ORTIZ MD Ot 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/O PERFORATION OR AB 08/05/2018 LEONEL ORTIZ MD, Ot K62.5 HEMORRHAGE OF ANUS AND RECTUM 08/05/2018 LEONEL ORTIZ MD, Ot K64.0 FIRST DEGREE HEMORRHOIDS 08/05/2018 LEONEL ORTIZ MD, Ot Z79.84 FDC (CURRENT) USE OF ORAL HYPOGLYC 08/05/2018 LEONEL ORTIZ MD, Ot Z80.0 FAMILY HISTORY OF MALIGNANT NEOPLASM OF 08/05/2018 LEONEL ORTIZ MD, Ot Z87.891 PERSONAL HISTORY OF NICOTINE DEPENDENCE 08/13/2018 LEONEL ORTIZ MD Ot E11.40 TYPE 2 DIABETES MELLITUS WITH DIABETIC N 08/13/2018 LEONEL ORTIZ MD Ot I10 ESSENTIAL (PRIMARY) HYPERTENSION 08/13/2018 LEONEL ORTIZ MD Ot I25.10 ATHSCL HEART DISEASE OF [place] CORONARY 08/13/2018 LEONEL ORTIZ MD, Ot J44.9 CHRONIC OBSTRUCTIVE PULMONARY DISEASE, U 08/13/2018 LEONEL ORTIZ MD, Ot J45.909 UNSPECIFIED ASTHMA, UNCOMPLICATED 08/13/2018 LEONEL ORTIZ MD, Ot K21.9 GASTRO-ESOPHAGEAL REFLUX DISEASE WITHOUT 08/13/2018 LEONEL ORTIZ MD, Ot 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/O PERFORATION OR AB 08/13/2018 LEONEL ORTIZ MD, Ot K62.5 HEMORRHAGE OF ANUS AND RECTUM 08/13/2018 LEONEL ORTIZ MD Ot K64.0 FIRST DEGREE HEMORRHOIDS 08/13/2018 LEONEL ORTIZ MD Ot Z79.84 FDC (CURRENT) USE OF ORAL HYPOGLYC 08/13/2018 LEONEL ORTIZ MD Ot Z80.0 FAMILY HISTORY OF MALIGNANT NEOPLASM OF 08/13/2018 LEONEL ORTIZ MD Ot Z87.891 PERSONAL HISTORY OF NICOTINE DEPENDENCE 11/26/2018 KYLAH CREWS Ot I25.5 ISCHEMIC CARDIOMYOPATHY 11/26/2018 JESSY PANDEY APRN Ot J44.9 CHRONIC OBSTRUCTIVE PULMONARY DISEASE, U 11/26/2018 JESSY PANDEY PRECISION THREAD GRINDER OPERATOR Ot J44.9 CHRONIC OBSTRUCTIVE PULMONARY DISEASE, U 11/26/2018 JESSY PANDEY PRECISION THREAD GRINDER OPERATOR Ot R06.02 SHORTNESS OF BREATH 11/29/2018 LADONNA SALGUERO DO Ot A08.4 VIRAL INTESTINAL INFECTION, UNSPECIFIED 11/29/2018 TERE SALGUERO DOA K Ot A41.9 SEPSIS, UNSPECIFIED ORGANISM 11/29/2018 LADONNA SALGUERO DO K Ot B96.20 UNSP ESCHERICHIA COLI THE CAUSE OF DI 11/29/2018 TERE SALGUERO DOA K Ot E11.9 TYPE 2 DIABETES MELLITUS WITHOUT COMPLIC 11/29/2018 TERE SALGUERO DOA K Ot E78.00 PURE HYPERCHOLESTEROLEMIA, UNSPECIFIED 11/29/2018 TERE SALGUERO DOA K Ot E86.0 DEHYDRATION 11/29/2018 TERE SALGUERO DOA K Ot F32.9 MAJOR DEPRESSIVE DISORDER, SINGLE EPISOD 11/29/2018 LADONNA SALGUERO DO K Ot F41.9 ANXIETY DISORDER, UNSPECIFIED 11/29/2018 TERE SALGUERO DOA K Ot I10 ESSENTIAL (PRIMARY) HYPERTENSION 11/29/2018 TERE SALGUERO DOA K Ot I25.10 ATHSCL HEART DISEASE OF [place] CORONARY 11/29/2018 TERE SALGUERO DOA K Ot J43.9 EMPHYSEMA, UNSPECIFIED 11/29/2018 TERE SALGUERO DOA K Ot J96.11 CHRONIC RESPIRATORY FAILURE WITH HYPOXIA 11/29/2018 TERE SALGUERO DOA K Ot N39.0 URINARY TRACT INFECTION, SITE NOT SPECIF 11/29/2018 TERE SALGUERO DOA K Ot Z87.891 PERSONAL HISTORY OF NICOTINE DEPENDENCE 11/29/2018 TERE SALGUERO DOA K Ot Z88.0 ALLERGY STATUS TO PENICILLIN 11/29/2018 TERE SALGUERO DOA K Ot Z88.5 ALLERGY STATUS TO NARCOTIC AGENT STATUS 11/29/2018 TERE SALGUERO DOA K Ot Z88.6 ALLERGY STATUS TO ANALGESIC AGENT STATUS 11/29/2018 TERE SALGUERO DOA K Ot Z88.8 ALLERGY STATUS TO OTH DRUG/MEDS/BIOL SUB 11/29/2018 TERE SALGUERO DOA K Ot Z89.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 11/29/2018 TERE SALGUERO DOA K Ot Z95.5 PRESENCE OF CORONARY ANGIOPLASTY IMPLANT 11/29/2018 LADONNA SALGUERO DO Ot Z99.81 DEPENDENCE ON SUPPLEMENTAL OXYGEN 12/01/2018 LADONNA SALGUERO DO Ot A08.4 VIRAL INTESTINAL INFECTION, UNSPECIFIED 12/01/2018 LADONNA SALGUERO DO Ot A41.9 SEPSIS, UNSPECIFIED ORGANISM 12/01/2018 LADONNA SALGUERO DO Ot B96.20 UNSP ESCHERICHIA COLI THE CAUSE OF DI 12/01/2018 LADONNA SALGUERO DO Ot D62 ACUTE POSTHEMORRHAGIC ANEMIA 12/01/2018 LADONNA SALGUERO DO Ot D63.8 ANEMIA IN OTHER CHRONIC DISEASES CLASSIF 12/01/2018 LADONNA SALGUERO DO Ot D70.9 NEUTROPENIA, UNSPECIFIED 12/01/2018 LADONNA SALGUERO DO Ot E11.59 TYPE 2 DIABETES MELLITUS WITH OTH CIRCUL 12/01/2018 LADONNA SALGUERO DO Ot E11.9 TYPE 2 DIABETES MELLITUS WITHOUT COMPLIC 12/01/2018 LADONNA SALGUERO DO Ot E78.00 PURE HYPERCHOLESTEROLEMIA, UNSPECIFIED 12/01/2018 LADONNA SALGUERO DO Ot E86.0 DEHYDRATION 12/01/2018 LADONNA SALGUERO DO Ot F32.9 MAJOR DEPRESSIVE DISORDER, SINGLE EPISOD 12/01/2018 LADONNA SALGUERO DO Ot F41.9 ANXIETY DISORDER, UNSPECIFIED 12/01/2018 LADONNA SALGUERO DO Ot I10 ESSENTIAL (PRIMARY) HYPERTENSION 12/01/2018 LADONNA SALGUERO DO Ot I25.10 ATHSCL HEART DISEASE OF [place] CORONARY 12/01/2018 LADONNA SALGUERO DO Ot J43.9 EMPHYSEMA, UNSPECIFIED 12/01/2018 LADONNA SALGUERO DO Ot J96.11 CHRONIC RESPIRATORY FAILURE WITH HYPOXIA 12/01/2018 LADONNA SALGUERO DO Ot N39.0 URINARY TRACT INFECTION, SITE NOT SPECIF 12/01/2018 LADONNA SALGUERO DO Ot Z79.84 FDC (CURRENT) USE OF ORAL HYPOGLYC 12/01/2018 LADONNA SALGUERO DO Ot Z87.891 PERSONAL HISTORY OF NICOTINE DEPENDENCE 12/01/2018 LADONNA SALGUERO DO Ot Z88.0 ALLERGY STATUS TO PENICILLIN 12/01/2018 LADONNA SALGUERO DO Ot Z88.5 ALLERGY STATUS TO NARCOTIC AGENT STATUS 12/01/2018 LADONNA SALGUERO DO Ot Z88.6 ALLERGY STATUS TO ANALGESIC AGENT STATUS 12/01/2018 LADONNA SALGUERO DO Ot Z88.8 ALLERGY STATUS TO OTH DRUG/MEDS/BIOL SUB 12/01/2018 LADONNA SALGUERO DO Ot Z89.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 12/01/2018 LADONNA SALGUERO DO Ot Z95.5 PRESENCE OF CORONARY ANGIOPLASTY IMPLANT 12/01/2018 LADONNA SALGUERO DO Ot Z99.81 DEPENDENCE ON SUPPLEMENTAL OXYGEN 03/25/2019 PERLAJENNIFFERKYLAH L AUDIT ASSOCIATE Ot I25.5 ISCHEMIC CARDIOMYOPATHY 03/25/2019 JESSY PANDEY PRECISION THREAD GRINDER OPERATOR Ot J44.9 CHRONIC OBSTRUCTIVE PULMONARY DISEASE, U 03/25/2019 JESSY PANDEY PRECISION THREAD GRINDER OPERATOR Ot J44.9 CHRONIC OBSTRUCTIVE PULMONARY DISEASE, U 03/25/2019 JESSY PANDEY PRECISION THREAD GRINDER OPERATOR Ot R06.02 SHORTNESS OF BREATH 05/04/2019 KYLAH CREWS AUDIT ASSOCIATE Ot I25.5 ISCHEMIC CARDIOMYOPATHY 05/04/2019 JESSY PANDEY PRECISION THREAD GRINDER OPERATOR Ot J44.9 CHRONIC OBSTRUCTIVE PULMONARY DISEASE, U 05/04/2019 JESSY PANDEY PRECISION THREAD GRINDER OPERATOR Ot J44.9 CHRONIC OBSTRUCTIVE PULMONARY DISEASE, U 05/04/2019 JESSY PANDEY PRECISION THREAD GRINDER OPERATOR Ot R06.02 SHORTNESS OF BREATH 05/04/2019 VINNIE OLVERA, MARINA Garcia Ot Z89.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 05/18/2019 VINNIE OLVERA, MARINA Garcia Ot Z89.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 05/26/2019 KYLAH CREWS AUDIT ASSOCIATE Ot I25.5 ISCHEMIC CARDIOMYOPATHY 05/26/2019 JESSY PANDEY PRECISION THREAD GRINDER OPERATOR Ot J44.9 CHRONIC OBSTRUCTIVE PULMONARY DISEASE, U 05/26/2019 JESSY PANDEY PRECISION THREAD GRINDER OPERATOR Ot J44.9 CHRONIC OBSTRUCTIVE PULMONARY DISEASE, U 05/26/2019 JESSY PANDEY PRECISION THREAD GRINDER OPERATOR Ot R06.02 SHORTNESS OF BREATH 05/26/2019 VINNIE OLVERA, MARINA Garcia Ot Z89.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 05/27/2019 JESSY PANDEY PRECISION THREAD GRINDER OPERATOR Ot G47.10 HYPERSOMNIA, UNSPECIFIED 05/27/2019 JESSY PANDEY PRECISION THREAD GRINDER OPERATOR Ot G47.36 SLEEP RELATED HYPOVENTILATION IN CONDITI 05/27/2019 JESSY PANDEY PRECISION THREAD GRINDER OPERATOR Ot G47.50 PARASOMNIA, UNSPECIFIED 05/27/2019 JESSY PANDEY PRECISION THREAD GRINDER OPERATOR Ot J43.8 OTHER EMPHYSEMA 05/27/2019 JESSY PANDEY PRECISION THREAD GRINDER OPERATOR Ot R06.00 DYSPNEA, UNSPECIFIED 05/27/2019 KATHERINJESSY 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 Ot R06.02 SHORTNESS OF BREATH 05/27/2019 JESSY PANDEY PRECISION THREAD GRINDER OPERATOR Ot R91.8 OTHER NONSPECIFIC ABNORMAL FINDING OF EVONNE 05/27/2019 JESSY PANDEY PRECISION THREAD GRINDER OPERATOR Ot Z72.0 TOBACCO USE 06/09/2019 JESSY PANDEY PRECISION THREAD GRINDER OPERATOR Ot G47.10 HYPERSOMNIA, UNSPECIFIED 06/09/2019 JESSY PANDEY PRECISION THREAD GRINDER OPERATOR Ot G47.36 SLEEP RELATED HYPOVENTILATION IN CONDITI 06/09/2019 JESSY PANDEY PRECISION THREAD GRINDER OPERATOR Ot G47.50 PARASOMNIA, UNSPECIFIED 06/09/2019 JESSY PANDEY PRECISION THREAD GRINDER OPERATOR Ot J43.8 OTHER EMPHYSEMA 06/09/2019 JESSY PANDEY PRECISION THREAD GRINDER OPERATOR Ot R06.00 DYSPNEA, UNSPECIFIED 06/09/2019 JESSY PANDEY PRECISION THREAD GRINDER OPERATOR Ot R06.02 SHORTNESS OF BREATH 06/09/2019 JESSY PANDEY PRECISION THREAD GRINDER OPERATOR Ot R91.8 OTHER NONSPECIFIC ABNORMAL FINDING OF EVONNE 06/09/2019 JESSY PANDEY PRECISION THREAD GRINDER OPERATOR Ot Z72.0 TOBACCO USE Procedures Code Description Performed By Performed On 59.79 URIN INCONTIN REPAIR NEC 01/28/2012 79.36 OP RED-INT FIX TIB/FIBUL 06/17/2012 30357 HEMOCCULT 09/07/2012 27266 PAP SMEAR 09/13/2012 74432 ROUTINE VENIPUNCTURE 10/11/2012 53084 A1C (IN-HOUSE) 10/11/2012 70800 URINE DRUG SCREEN (IN-HOUSE) 10/11/2012 60371 MICRO ALBUMIN-IN HOUSE 10/11/2012 95424 CMP 10/11/2012 96316 LIPID PANEL 10/11/2012 1024030 GFR CALC (RESULT ONLY) 10/11/2012 27848 MICROALBUMIN 10/12/2012 58306 URINE DRUG SCREEN (IN-HOUSE) 10/22/2012 27693 MAMMOGRAM, SCREENING 10/24/2012 Q0091 PAP SMEAR OBTAIN SMEAR 10/24/2012 52663 ROUTINE VENIPUNCTURE 12/02/2012 33528 URINE DRUG SCREEN (IN-HOUSE) 12/02/2012 54955 URINE PCP GC/MS 12/03/2012 65840 TSH 12/04/2012 27559 ROUTINE VENIPUNCTURE 02/08/2013 10832 A1C (IN-HOUSE) 02/08/2013 88830 URINE DRUG SCREEN (IN-HOUSE) 02/08/2013 33644 MICRO ALBUMIN-IN HOUSE 02/08/2013 41283 CMP 02/08/2013 1947341 GFR CALC (RESULT ONLY) 02/08/2013 86595 CBC 02/08/2013 14799 MICROALBUMIN 02/08/2013 Vivian Cha 02/11/2013 69059 DEBRIDE NAIL >6 06/03/2013 84488 ROUTINE VENIPUNCTURE 08/10/2013 G0008 FLU ADMINISTRATION (MEDICARE ONLY) 08/10/2013 08779 URINE DRUG SCREEN (IN-HOUSE) 08/10/2013 60302 CBC 08/10/2013 46060 CMP 08/10/2013 92866 LIPID PANEL 08/10/2013 9880155 GFR CALC (RESULT ONLY) 08/10/2013 85105 TSH 08/11/2013 91623 A1C (RML) 08/11/2013 48738 UA W/ CULTURE IF INDICATED 08/17/2013 90018 CULTURE URINE 08/18/2013 59107 DEBRIDE NAIL >6 09/02/2013 37464 DEBRIDE NAIL >6 12/09/2013 14910 CMP 2014 57963 MAGNESIUM 2014 06008 A1C (IN-HOUSE) 2014 20543 ROUTINE VENIPUNCTURE 02/27/2014 2764394 GFR CALC (RESULT ONLY) 02/27/2014 84508 BMP 02/27/2014 95885 DEBRIDE NAIL >6 03/10/2014 59856 URINE DRUG SCREEN (IN-HOUSE) 04/03/2014 05215 ROUTINE VENIPUNCTURE 05/22/2014 ALVIN AREVALO 05/22/2014 78394 A1C (IN-HOUSE) 05/22/2014 4436334 GFR CALC (RESULT ONLY) 05/22/2014 25501 CMP 05/22/2014 89670 TSH 05/22/2014 Alvin Arevalo 06/20/2014 82344 ROUTINE VENIPUNCTURE 08/28/2014 94191 OXIMETRY 08/28/2014 54570 A1C (IN-HOUSE) 08/28/2014 22593 BMP 08/28/2014 08589 TSH 08/28/2014 37415 OXIMETRY 11/13/2014 24105 ROUTINE VENIPUNCTURE 11/27/2014 49157 XRAY CHEST 2 VIEW 11/27/2014 80619 CMP 11/27/2014 30623 TSH 11/27/2014 64479 CBC 11/27/2014 44492 MYCOPLASMA ANTIBODY 11/27/2014 33594 XRAY KNEE LEFT, 1 OR 2 VIEWS 12/11/2014 47821 XRAY ANKLE R, 2 VIEWS 12/11/2014 34086 ROUTINE VENIPUNCTURE 02/19/2015 51589 ECHO 2D 02/19/2015 85959 [employer] 02/19/2015 CARDIOLOG KOFI, ALI 02/19/2015 64922 MAGNESIUM 02/19/2015 79390 CBC 02/19/2015 3848492 GFR CALC (RESULT ONLY) 02/19/2015 97984 [facility] 02/19/2015 7552594 SPTYPE 02/19/2015 39521 TSH 02/19/2015 11680 ROUTINE VENIPUNCTURE 02/27/2015 12814 [facility] 02/27/2015 1296520 GFR CALC (RESULT ONLY) 02/27/2015 Results Test Result Range [facility] - 01/25/18 11:55 GLUCOSE 92 [...] Automated erythrocyte mean corpuscular hemoglobin concentration measurement (mass/volume) 32 g/dL 32-36 Automated erythrocyte distribution width ratio 18.0 % 10.0- 14.5 Automated blood platelet count (count/volume) 227 10*3/uL [...] Blood monocytes automated count (number/volume) 0.8 10*3 0.0- 1.0 Automated eosinophil count 0.3 10*3/uL 0.0-0.3 Automated [...] Serum or plasma aspartate aminotransferase measurement (enzymatic activity/volume) 18 U/L 5-34 Serum or plasma alanine aminotransferase measurement (enzymatic activity/volume) 16 U/L 0-55 Serum or plasma protein measurement (mass/volume) 7.2 g/dL 6.4-8.2 Serum or plasma albumin measurement (mass/volume) 3.7 g/dL 3.2-4.5 Magnesium - 02/15/18 10:55 Magnesium 1.8 mg/dL 1.8-2.4 Serum or plasma troponin i.cardiac measurement (mass/volume) - 02/15/18 10:55 Serum or plasma troponin i.cardiac measurement (mass/volume) < ng/mL <0.30 Myoglobin, serum - 02/15/18 10:55 Myoglobin, serum 28.9 ng/mL 10.0-92.0 Serum or plasma troponin i.cardiac measurement (mass/volume) - 02/15/18 13:54 Serum or plasma troponin i.cardiac measurement (mass/volume) < ng/mL <0.30 Complete blood count (CBC) with automated [...] Automated erythrocyte mean corpuscular hemoglobin concentration measurement (mass/volume) 31 g/dL 32-36 Automated erythrocyte distribution width ratio 18.4 % 10.0- 14.5 Automated blood platelet count (count/volume) 208 10*3/uL [...] Blood monocytes automated count (number/volume) 0.5 10*3 0.0- 1.0 Automated eosinophil count 0.3 10*3/uL 0.0-0.3 Automated [...] Serum or plasma aspartate aminotransferase measurement (enzymatic activity/volume) 17 U/L 5-34 Serum or plasma alanine aminotransferase measurement (enzymatic activity/volume) 13 U/L 0-55 Serum or plasma protein measurement (mass/volume) 5.9 g/dL 6.4-8.2 Serum or plasma albumin measurement (mass/volume) 3.2 g/dL 3.2-4.5 Magnesium - 02/21/18 17:24 Magnesium 1.8 mg/dL 1.8-2.4 Serum or plasma troponin i.cardiac measurement (mass/volume) - 02/21/18 17:24 Serum or plasma troponin i.cardiac measurement (mass/volume) < ng/mL <0.30 Serum or plasma ethanol measurement (mass/volume) - 02/21/18 17:24 Serum or plasma ethanol measurement (mass/volume) < mg/dL <10 Complete urinalysis with reflex to culture - 02/21/18 18:11 Urine color determination YELLOW NRG Urine clarity determination VERY CLOUDY NRG Urine pH measurement by test strip 6 5-9 Specific gravity of urine by test strip 1.020 1.016-1.022 Urine protein assay by test strip, semi-quantitative [...] sediment leukocyte count by microscopy (number/high power field) [HPF] NRG Bacteria detection in urine sediment [...] culture - 02/21/18 18:11 Bacterial urine culture [id number] NRG COLONY COUNT >100,000/ML NRG Automated blood [...] Automated erythrocyte mean corpuscular hemoglobin concentration measurement (mass/volume) 31 g/dL 32-36 Automated erythrocyte distribution width ratio 17.8 % 10.0- 14.5 Automated blood platelet count (count/volume) 320 10*3/uL [...] Serum or plasma aspartate aminotransferase measurement (enzymatic activity/volume) 20 U/L 5-34 Serum or plasma alanine aminotransferase measurement (enzymatic activity/volume) 13 U/L 0-55 Serum or plasma protein measurement (mass/volume) 7.7 g/dL 6.4-8.2 Serum or plasma albumin measurement (mass/volume) 3.8 g/dL 3.2-4.5 Lipid 1996 panel - 03/09/18 07:08 Serum or plasma triglyceride measurement (mass/volume) 154 mg/dL <150 Serum or plasma cholesterol measurement (mass/volume) 143 mg/dL < 200 Serum or plasma cholesterol in HDL measurement (mass/volume) 48 mg/dL 40-60 Cholesterol in LDL [mass/volume] in serum or plasma by direct assay 76 mg/dL 1-129 Serum or plasma cholesterol in VLDL measurement (mass/volume) 31 mg/dL 5-40 Methicillin resistant Staphylococcus aureus (MRSA) screening culture - 03/09/18 07:08 Methicillin resistant Staphylococcus aureus (MRSA) screening [...] 11.9 fL 7.5-12.5 ABSOLUTE NEUTROPHILS 4890 cells/uL 5338-6138 ABSOLUTE LYMPHOCYTES 3685 cells/uL 850-3900 ABSOLUTE MONOCYTES [...] 250-450 % SATURATION 8 % (calc) 11-50 Complete blood count (CBC) with automated white blood cell (WBC) differential - 11/26/18 14:40 Blood leukocytes automated count (number/volume) 18.0 10*3/uL 4.3-11.0 Blood erythrocytes automated count (number/volume) 4.86 10*6/uL 4.35-5.85 Venous blood hemoglobin measurement (mass/volume) 10.4 g/dL 11.5-16.0 Blood hematocrit (volume fraction) 37 % 35-52 Automated erythrocyte mean corpuscular volume 76 [foz_us] 80-99 Automated erythrocyte mean corpuscular hemoglobin (mass per erythrocyte) 21 pg 25-34 Automated erythrocyte mean corpuscular hemoglobin concentration measurement (mass/volume) 28 g/dL 32-36 Automated erythrocyte distribution width ratio 18.2 % 10.0- 14.5 Automated blood platelet count (count/volume) 340 10*3/uL 130-400 Automated blood platelet mean volume measurement 11.4 [foz_us] 7.4-10.4 Automated blood neutrophils/100 leukocytes 90 % 42-75 Automated blood lymphocytes/100 leukocytes 3 % 12-44 Blood monocytes/100 leukocytes 5 % 0-12 Automated blood eosinophils/100 leukocytes 2 % 0-10 Automated blood basophils/100 leukocytes 0 % 0-10 Blood neutrophils automated count (number/volume) 16.3 10*3 1.8-7.8 Blood lymphocytes automated count (number/volume) 0.6 10*3 1.0-4.0 Blood monocytes automated count (number/volume) 0.8 10*3 0.0- 1.0 Automated eosinophil count 0.3 10*3/uL 0.0-0.3 Automated blood basophil count (count/volume) 0.0 10*3/uL 0.0-0.1 Comprehensive metabolic panel - 11/26/18 14:40 Serum or plasma sodium measurement (moles/volume) 139 mmol/L 135-145 Serum or plasma potassium measurement (moles/volume) 4.8 mmol/L 3.6-5.0 Serum or plasma chloride measurement (moles/volume) 110 mmol/L 98-107 Carbon dioxide 17 mmol/L 21-32 Serum or plasma anion gap determination (moles/volume) 12 mmol/L 5-14 Serum or plasma urea nitrogen measurement (mass/volume) 27 mg/dL 7-18 Serum or plasma creatinine measurement (mass/volume) 0.72 mg/dL 0.60-1.30 Serum or plasma urea nitrogen/creatinine mass ratio 38 NRG Serum or plasma creatinine measurement with calculation of estimated glomerular filtration rate > NRG Serum or plasma glucose measurement (mass/volume) 119 mg/dL 70-105 Serum or plasma calcium measurement (mass/volume) 8.6 mg/dL 8.5-10.1 Serum or plasma total bilirubin measurement (mass/volume) 0.3 mg/dL 0.1-1.0 Serum or plasma alkaline phosphatase measurement (enzymatic activity/volume) 84 U/L 40-136 Serum or plasma aspartate aminotransferase measurement (enzymatic activity/volume) 25 U/L 5-34 Serum or plasma alanine aminotransferase measurement (enzymatic activity/volume) 11 U/L 0-55 Serum or plasma protein measurement (mass/volume) 7.7 g/dL 6.4-8.2 Serum or plasma albumin measurement (mass/volume) 3.8 g/dL 3.2-4.5 CALCIUM CORRECTED 8.8 mg/dL 8.5-10.1 Blood manual differential performed detection - 11/26/18 14:40 Blood monocytes/100 leukocytes 1 % NRG Manual blood segmented neutrophils/100 leukocytes 98 % NRG Blood band neutrophils/100 leukocytes 0 % NRG Manual blood lymphocytes/100 leukocytes 1 % NRG Manual eosinophils/100 leukocytes in nose 0 % NRG Manual blood basophils/100 leukocytes 0 % NRG Blood hypochromia detection by light microscopy SLIGHT NRG Blood microcytes detection by light microscopy SLIGHT NRG Blood lactic acid measurement (moles/volume) - 11/26/18 14:40 Blood lactic acid measurement (moles/volume) 1.99 mmol/L 0.50- 2.00 Bacterial blood culture - 11/26/18 14:40 QUANTITY OF GROWTH . NRG Bacterial blood culture SEE COMMEN NRG Complete urinalysis with reflex to culture - 11/26/18 15:25 Urine color determination YELLOW NRG Urine clarity determination SLIGHTLY CLOUDY NRG Urine pH measurement by test strip 5 5-9 Specific gravity of urine by test strip 1.020 1.016-1.022 Urine protein assay by test strip, semi-quantitative 3+ NEGATIVE Urine glucose detection by automated test strip NEGATIVE NEGATIVE Erythrocytes detection in urine sediment by light microscopy 2+ NEGATIVE Urine ketones detection by automated test strip NEGATIVE NEGATIVE Urine nitrite detection by test strip POSITIVE NEGATIVE Urine total bilirubin detection by test strip 1+ NEGATIVE Urine urobilinogen measurement by automated test strip (mass/volume) 1 mg/dL NORMAL Urine leukocyte esterase detection by dipstick 3+ NEGATIVE Automated urine sediment erythrocyte count by microscopy (number/high power field) [HPF] NRG Automated urine sediment leukocyte count by microscopy (number/high power field) [HPF] NRG Bacteria detection in urine sediment by light microscopy LARGE NRG Squamous epithelial cells detection in urine sediment by light microscopy 5-10 NRG Crystals detection in urine sediment by light microscopy NONE NRG Casts detection in urine sediment by light microscopy NONE NRG Mucus detection in urine sediment by light microscopy SMALL NRG Complete urinalysis with reflex to culture YES NRG Bacterial urine culture - 11/26/18 15:25 Bacterial urine culture [id number] NRG COLONY COUNT >100,000/ML NRG FTX;REPORTABLE RML SENT SENSITIVITY REPORT 11/28 10:05 NRG FREE TEXT ENTRY 3 RML SENT ID REPORT 11/26 16:06 NRG RML Sensitivity Panel - 11/26/18 15:25 Gentamicin susceptibility test by minimum inhibitory concentration <= NRG Trimethoprim/sulfamethoxazole susceptibility test by minimum inhibitoryconcentration > NRG Levofloxacin susceptibility test by minimum inhibitory concentration > NRG Ampicillin susceptibility test by minimum inhibitory concentration > NRG Cefazolin susceptibility test by minimum inhibitory concentration 2 NRG Ceftriaxone susceptibility test by minimum inhibitory concentration <= NRG Ciprofloxacin susceptibility test by minimum inhibitory concentration > NRG Meropenem susceptibility test by minimum inhibitory concentration <= NRG Nitrofurantoin susceptibility test by minimum inhibitory concentration <= NRG Amoxicillin and clavulanate potassium susc HARRY = NRG Bacterial blood culture - 11/26/18 16:15 Bacterial blood culture NG NRG C DIFFICILE AG + TOXIN A/B. - 11/26/18 22:45 RESULTS NEGATIVE FOR ANTIGEN AND TOXIN A/B NRG Complete blood count (CBC) with automated white blood cell (WBC) differential - 11/27/18 05:13 Blood leukocytes automated count (number/volume) 10.3 10*3/uL 4.3-11.0 Blood erythrocytes automated count (number/volume) 3.97 10*6/uL 4.35-5.85 Venous blood hemoglobin measurement (mass/volume) 8.7 g/dL 11.5-16.0 Blood hematocrit (volume fraction) 30 % 35-52 Automated erythrocyte mean corpuscular volume 76 [foz_us] 80-99 Automated erythrocyte mean corpuscular hemoglobin (mass per erythrocyte) 22 pg 25-34 Automated erythrocyte mean corpuscular hemoglobin concentration measurement (mass/volume) 29 g/dL 32-36 Automated erythrocyte distribution width ratio 18.0 % 10.0- 14.5 Automated blood platelet count (count/volume) 210 10*3/uL 130-400 Automated blood platelet mean volume measurement 11.1 [foz_us] 7.4-10.4 Automated blood neutrophils/100 leukocytes 88 % 42-75 Automated blood lymphocytes/100 leukocytes 5 % 12-44 Blood monocytes/100 leukocytes 7 % 0-12 Automated blood eosinophils/100 leukocytes 0 % 0-10 Automated blood basophils/100 leukocytes 0 % 0-10 Blood neutrophils automated count (number/volume) 9.0 10*3 1.8-7.8 Blood lymphocytes automated count (number/volume) 0.5 10*3 1.0-4.0 Blood monocytes automated count (number/volume) 0.8 10*3 0.0- 1.0 Automated eosinophil count 0.0 10*3/uL 0.0-0.3 Automated blood basophil count (count/volume) 0.0 10*3/uL 0.0-0.1 Whole blood basic metabolic panel - 11/27/18 05:13 Serum or plasma sodium measurement (moles/volume) 140 mmol/L 135-145 Serum or plasma potassium measurement (moles/volume) 3.7 mmol/L 3.6-5.0 Serum or plasma chloride measurement (moles/volume) 114 mmol/L 98-107 Carbon dioxide 15 mmol/L 21-32 Serum or plasma anion gap determination (moles/volume) 11 mmol/L 5-14 Serum or plasma urea nitrogen measurement (mass/volume) 19 mg/dL 7-18 Serum or plasma creatinine measurement (mass/volume) 0.54 mg/dL 0.60-1.30 Serum or plasma urea nitrogen/creatinine mass ratio 35 NRG Serum or plasma creatinine measurement with calculation of estimated glomerular filtration rate > NRG Serum or plasma glucose measurement (mass/volume) 106 mg/dL 70-105 Serum or plasma calcium measurement (mass/volume) 8.0 mg/dL 8.5-10.1 Capillary blood glucose measurement by glucometer (mass/volume) - 11/27/18 10:57 Capillary blood glucose measurement by glucometer (mass/volume) 129 mg/dL 70-110 Blood lactic acid measurement (moles/volume) - 11/27/18 12:20 Blood lactic acid measurement (moles/volume) 1.86 mmol/L 0.50- 2.00 Capillary blood glucose measurement by glucometer (mass/volume) - 11/27/18 14:31 Capillary blood glucose measurement by glucometer (mass/volume) 154 mg/dL 70-110 Capillary blood glucose measurement by glucometer (mass/volume) - 11/27/18 19:24 Capillary blood glucose measurement by glucometer (mass/volume) 104 mg/dL 70-110 Stool bacteria identification by culture - 11/28/18 09:43 QUANTITY OF GROWTH . NRG Stool bacteria identification by culture PROGRESS NRG Capillary blood glucose measurement by glucometer (mass/volume) - 11/28/18 10:32 Capillary blood glucose measurement by glucometer (mass/volume) 92 mg/dL 70-110 Capillary blood glucose measurement by glucometer (mass/volume) - 11/28/18 14:27 Capillary blood glucose measurement by glucometer (mass/volume) 89 mg/dL 70-110 Capillary blood glucose measurement by glucometer (mass/volume) - 11/28/18 23:06 Capillary blood glucose measurement by glucometer (mass/volume) 80 mg/dL 70-110 Capillary blood glucose measurement by glucometer (mass/volume) - 11/29/18 05:13 Capillary blood glucose measurement by glucometer (mass/volume) 79 mg/dL 70-110 Complete blood count (CBC) with automated white blood cell (WBC) differential - 11/29/18 08:25 Blood leukocytes automated count (number/volume) 2.1 10*3/uL 4.3-11.0 Blood erythrocytes automated count (number/volume) 3.41 10*6/uL 4.35-5.85 Venous blood hemoglobin measurement (mass/volume) 7.3 g/dL 11.5-16.0 Blood hematocrit (volume fraction) 26 % 35-52 Automated erythrocyte mean corpuscular volume 77 [foz_us] 80-99 Automated erythrocyte mean corpuscular hemoglobin (mass per erythrocyte) 21 pg 25-34 Automated erythrocyte mean corpuscular hemoglobin concentration measurement (mass/volume) 28 g/dL 32-36 Automated erythrocyte distribution width ratio 18.2 % 10.0- 14.5 Automated blood platelet count (count/volume) 185 10*3/uL 130-400 Automated blood platelet mean volume measurement 11.2 [foz_us] 7.4-10.4 Automated blood neutrophils/100 leukocytes 45 % 42-75 Automated blood lymphocytes/100 leukocytes 40 % 12-44 Blood monocytes/100 leukocytes 13 % 0-12 Automated blood eosinophils/100 leukocytes 1 % 0-10 Automated blood basophils/100 leukocytes 1 % 0-10 Blood neutrophils automated count (number/volume) 1.0 10*3 1.8-7.8 Blood lymphocytes automated count (number/volume) 0.9 10*3 1.0-4.0 Blood monocytes automated count (number/volume) 0.3 10*3 0.0- 1.0 Automated eosinophil count 0.0 10*3/uL 0.0-0.3 Automated blood basophil count (count/volume) 0.0 10*3/uL 0.0-0.1 Comprehensive metabolic panel - 11/29/18 08:25 Serum or plasma sodium measurement (moles/volume) 141 mmol/L 135-145 Serum or plasma potassium measurement (moles/volume) 3.2 mmol/L 3.6-5.0 Serum or plasma chloride measurement (moles/volume) 119 mmol/L 98-107 Carbon dioxide 14 mmol/L 21-32 Serum or plasma anion gap determination (moles/volume) 8 mmol/L 5-14 Serum or plasma urea nitrogen measurement (mass/volume) 8 mg/dL 7-18 Serum or plasma creatinine measurement (mass/volume) 0.53 mg/dL 0.60-1.30 Serum or plasma urea nitrogen/creatinine mass ratio 15 NRG Serum or plasma creatinine measurement with calculation of estimated glomerular filtration rate > NRG Serum or plasma glucose measurement (mass/volume) 77 mg/dL 70-105 Serum or plasma calcium measurement (mass/volume) 7.3 mg/dL 8.5-10.1 Serum or plasma total bilirubin measurement (mass/volume) 0.1 mg/dL 0.1-1.0 Serum or plasma alkaline phosphatase measurement (enzymatic activity/volume) 50 U/L 40-136 Serum or plasma aspartate aminotransferase measurement (enzymatic activity/volume) 42 U/L 5-34 Serum or plasma alanine aminotransferase measurement (enzymatic activity/volume) 22 U/L 0-55 Serum or plasma protein measurement (mass/volume) 5.0 g/dL 6.4-8.2 Serum or plasma albumin measurement (mass/volume) 2.5 g/dL 3.2-4.5 CALCIUM CORRECTED 8.5 mg/dL 8.5-10.1 IRON TEST - 11/29/18 08:25 Serum or plasma iron measurement (mass/volume) < % 35-180 Capillary blood glucose measurement by glucometer (mass/volume) - 11/29/18 10:28 Capillary blood glucose measurement by glucometer (mass/volume) 81 mg/dL 70-110 Capillary blood glucose measurement by glucometer (mass/volume) - 11/29/18 15:04 Capillary blood glucose measurement by glucometer (mass/volume) 96 mg/dL 70-110 RED CELLS LEUKO REDUCED AS1 - 11/29/18 20:04 RED CELLS LEUKO REDUCED AS1 TRANSFUSED 11/29/18 2309 NRG Blood type T Indirect antibody screen panel - 11/29/18 20:04 ABO+Rh group BP NRG Transfusion band number [id number] NRG Blood group antibody screen NEGATIVE NRG Capillary blood glucose measurement by glucometer (mass/volume) - 11/29/18 20:07 Capillary blood glucose measurement by glucometer (mass/volume) 87 mg/dL 70-110 Capillary blood glucose measurement by glucometer (mass/volume) - 11/30/18 06:25 Capillary blood glucose measurement by glucometer (mass/volume) 92 mg/dL 70-110 Complete blood count (CBC) with automated white blood cell (WBC) differential - 11/30/18 07:05 Blood leukocytes automated count (number/volume) 3.5 10*3/uL 4.3-11.0 Blood erythrocytes automated count (number/volume) 4.27 10*6/uL 4.35-5.85 Venous blood hemoglobin measurement (mass/volume) 9.9 g/dL 11.5-16.0 Blood hematocrit (volume fraction) 33 % 35-52 Automated erythrocyte mean corpuscular volume 77 [foz_us] 80-99 Automated erythrocyte mean corpuscular hemoglobin (mass per erythrocyte) 23 pg 25-34 Automated erythrocyte mean corpuscular hemoglobin concentration measurement (mass/volume) 30 g/dL 32-36 Automated erythrocyte distribution width ratio 17.2 % 10.0- 14.5 Automated blood platelet count (count/volume) 164 10*3/uL 130-400 Automated blood platelet mean volume measurement 11.2 [foz_us] 7.4-10.4 Automated blood neutrophils/100 leukocytes 45 % 42-75 Automated blood lymphocytes/100 leukocytes 36 % 12-44 Blood monocytes/100 leukocytes 14 % 0-12 Automated blood eosinophils/100 leukocytes 3 % 0-10 Automated blood basophils/100 leukocytes 1 % 0-10 Blood neutrophils automated count (number/volume) 1.6 10*3 1.8-7.8 Blood lymphocytes automated count (number/volume) 1.3 10*3 1.0-4.0 Blood monocytes automated count (number/volume) 0.5 10*3 0.0- 1.0 Automated eosinophil count 0.1 10*3/uL 0.0-0.3 Automated blood basophil count (count/volume) 0.0 10*3/uL 0.0-0.1 Comprehensive metabolic panel - 11/30/18 07:05 Serum or plasma sodium measurement (moles/volume) 142 mmol/L 135-145 Serum or plasma potassium measurement (moles/volume) 3.8 mmol/L 3.6-5.0 Serum or plasma chloride measurement (moles/volume) 118 mmol/L 98-107 Carbon dioxide 15 mmol/L 21-32 Serum or plasma anion gap determination (moles/volume) 9 mmol/L 5-14 Serum or plasma urea nitrogen measurement (mass/volume) 5 mg/dL 7-18 Serum or plasma creatinine measurement (mass/volume) 0.53 mg/dL 0.60-1.30 Serum or plasma urea nitrogen/creatinine mass ratio 9 NRG Serum or plasma creatinine measurement with calculation of estimated glomerular filtration rate > NRG Serum or plasma glucose measurement (mass/volume) 96 mg/dL 70-105 Serum or plasma calcium measurement (mass/volume) 7.3 mg/dL 8.5-10.1 Serum or plasma total bilirubin measurement (mass/volume) 0.4 mg/dL 0.1-1.0 Serum or plasma alkaline phosphatase measurement (enzymatic activity/volume) 56 U/L 40-136 Serum or plasma aspartate aminotransferase measurement (enzymatic activity/volume) 29 U/L 5-34 Serum or plasma alanine aminotransferase measurement (enzymatic activity/volume) 19 U/L 0-55 Serum or plasma protein measurement (mass/volume) 5.3 g/dL 6.4-8.2 Serum or plasma albumin measurement (mass/volume) 2.7 g/dL 3.2-4.5 CALCIUM CORRECTED 8.3 mg/dL 8.5-10.1 Capillary blood glucose measurement by glucometer (mass/volume) - 11/30/18 12:07 Capillary blood glucose measurement by glucometer (mass/volume) 83 mg/dL 70-110 Capillary blood glucose measurement by glucometer (mass/volume) - 11/30/18 14:29 Capillary blood glucose measurement by glucometer (mass/volume) 97 mg/dL 70-110 Capillary blood glucose measurement by glucometer (mass/volume) - 11/30/18 19:19 Capillary blood glucose measurement by glucometer (mass/volume) 103 mg/dL 70-110 Capillary blood glucose measurement by glucometer (mass/volume) - 12/01/18 05:40 Capillary blood glucose measurement by glucometer (mass/volume) 90 mg/dL 70-110 Capillary blood glucose measurement by glucometer (mass/volume) - 12/01/18 10:47 Capillary blood glucose measurement by glucometer (mass/volume) 101 mg/dL 70-110 Capillary blood glucose measurement by glucometer (mass/volume) - 12/01/18 10:57 Capillary blood glucose measurement by glucometer (mass/volume) 174 mg/dL 70-110 CMP - 05/02/19 15:24 GLUCOSE 97 mg/dL 65-99 UREA NITROGEN (BUN) 21 mg/dL 7-25 CREATININE 0.72 mg/dL 0.50-1.05 eGFR NON-AFR. EMIRATI 94 mL/min/1.73m2 > OR=60 eGFR 109 mL/min/1.73m2 > OR=60 BUN/CREATININE RATIO NOT APPLICABLE (calc) 6-22 SODIUM 140 mmol/L 135-146 POTASSIUM 4.1 mmol/L 3.5-5.3 CHLORIDE 108 mmol/L 98-110 CARBON DIOXIDE 26 mmol/L 20-32 CALCIUM 8.4 mg/dL 8.6-10.4 PROTEIN, TOTAL 6.2 g/dL 6.1-8.1 ALBUMIN 3.2 g/dL 3.6-5.1 GLOBULIN 3.0 g/dL (calc) 1.9-3.7 ALBUMIN/GLOBULIN RATIO 1.1 (calc) 1.0-2.5 BILIRUBIN, TOTAL 0.3 mg/dL 0.2-1.2 ALKALINE PHOSPHATASE 84 U/L 33-130 AST 14 U/L 10-35 ALT 9 U/L 6-29 CBC - 05/02/19 15:24 WHITE BLOOD CELL COUNT 9.1 Thousand/uL 3.8-10.8 RED BLOOD CELL COUNT 4.36 Million/uL 3.80-5.10 HEMOGLOBIN 9.4 g/dL 11.7-15.5 HEMATOCRIT 32.6 % 35.0-45.0 MCV 74.8 fL 80.0-100.0 MCH 21.6 pg 27.0-33.0 MCHC 28.8 g/dL 32.0-36.0 RDW 16.0 % 11.0-15.0 PLATELET COUNT 236 Thousand/uL 140-400 MPV 11.1 fL 7.5-12.5 ABSOLUTE NEUTROPHILS 5551 cells/uL 6325-5887 ABSOLUTE LYMPHOCYTES 2348 cells/uL 850-3900 ABSOLUTE MONOCYTES 910 cells/uL 200-950 ABSOLUTE EOSINOPHILS 228 cells/uL 15-500 ABSOLUTE BASOPHILS 64 cells/uL 0-200 NEUTROPHILS 61 % NRG LYMPHOCYTES 25.8 % NRG MONOCYTES 10.0 % NRG EOSINOPHILS 2.5 % NRG BASOPHILS 0.7 % NRG Arterial blood gas measurement - 05/26/19 11:09 Blood pCO2 46 mm[Hg] 35-45 Blood pO2 60 mm[Hg] 79-93 Arterial blood bicarbonate measurement (moles/volume) 26 mmol/L 23-27 Arterial blood base excess by calculation 1.2 mmol/L -2.5-2.5 Arterial blood oxygen saturation measurement 94 % 94-100 * Inhaled oxygen flow rate N/A NRG Arterial blood pH measurement with patient temperature correction 7.37 7.37-7.43 Arterial blood carbon dioxide, total measurement (moles/volume) 27.5 mmol/L 21.0-31.0 Body site LEFT RADIAL NRG Assessment of wrist artery patency prior to arterial puncture POSITIVE NRG Setting of ventilation mode NO NRG Measurement of body temperature 97.7 NRG Encounters ACCT No. Visit Date/Time Discharge Status Pt. Type Provider Facility Loc./Unit Complaint [id number] 02/27/2015 09:51:00 02/27/2015 23:59:59 [facility] Outpatient ETELVINA LEONARD APRN [id number] 02/19/2015 08:48:00 02/19/2015 23:59:59 [facility] Outpatient ETELVINA LEONARD APRN [id number] 02/09/2015 08:56:00 02/09/2015 23:59:59 CLS Outpatient LADONNA SALGUERO DO [id number] 12/11/2014 14:31:00 12/11/2014 23:59:59 CLS Outpatient ETELVINA LEONARD APRN [id number] 12/11/2014 14:31:00 12/11/2014 23:59:59 [facility] Outpatient SALGUERO DOLADONNA Adriana [id number] 11/27/2014 13:24:00 11/27/2014 23:59:59 CLS Outpatient SALGUERO DOTERERadha Wright [id number] 11/27/2014 13:24:00 11/27/2014 23:59:59 CLS Outpatient MADL PRECISION THREAD GRINDER OPERATOR, ETELVINA L [id number] 11/13/2014 09:52:00 11/13/2014 23:59:59 CLS Outpatient MADL PRECISION THREAD GRINDER OPERATOR, ETELVINA L [id number] 10/23/2014 13:14:00 10/23/2014 23:59:59 CLS Outpatient MADL PRECISION THREAD GRINDER OPERATOR, ETELVINA L [id number] 09/25/2014 13:26:00 09/25/2014 23:59:59 CLS Outpatient MADL PRECISION THREAD GRINDER OPERATOR, ETELVINA L [id number] 08/28/2014 09:22:00 08/28/2014 23:59:59 CLS Outpatient MADL PRECISION THREAD GRINDER OPERATOR, ETELVINA L [id number] 08/28/2014 09:22:00 08/28/2014 23:59:59 CLS Outpatient MADL PRECISION THREAD GRINDER OPERATOR, ETELVINA L [id number] 07/24/2014 09:55:00 07/24/2014 23:59:59 CLS Outpatient SALGUERO DOLADONNA Adriana [id number] 06/19/2014 09:11:00 06/19/2014 23:59:59 CLS Outpatient SALGUERO DOLADONNA Adriana [id number] 05/22/2014 13:40:00 05/22/2014 23:59:59 CLS Outpatient MADL PRECISION THREAD GRINDER OPERATOR, ETELVINA L [id number] 05/22/2014 13:40:00 05/22/2014 23:59:59 CLS Outpatient MADL PRECISION THREAD GRINDER OPERATOR, ETELVINA L [id number] 04/03/2014 14:31:00 04/03/2014 23:59:59 CLS Outpatient MADL PRECISION THREAD GRINDER OPERATOR, ETELVINA L [id number] 04/03/2014 14:31:00 04/03/2014 23:59:59 CLS Outpatient SALGUERO DOTERERadha Wright [id number] 03/10/2014 08:26:00 03/10/2014 23:59:59 CLS Outpatient SALGUERO DO LADONNA Wright [id number] 03/10/2014 08:26:00 03/10/2014 23:59:59 CLS Outpatient SALGUERO DO, LADONNA Wright [id number] 02/27/2014 14:59:00 02/27/2014 23:59:59 CLS Outpatient LADONNA SALGUERO DO Adriana [id number] 2014 09:28:00 2014 23:59:59 CLS Outpatient BYRON BOSS MD [id number] 2014 09:28:00 2014 23:59:59 CLS Outpatient BYRON BOSS MD [id number] 12/09/2013 07:39:00 12/09/2013 23:59:59 CLS Outpatient LADONNA SALGUERO DO Adriana [id number] 09/22/2013 09:11:00 09/22/2013 23:59:59 CLS Outpatient BYRON BOSS MD [id number] 09/02/2013 07:40:00 09/02/2013 23:59:59 CLS Outpatient SALGUERO LADONNA [id number] 08/25/2013 15:49:00 08/25/2013 23:59:59 CLS Outpatient BYRON BOSS MD [id number] 08/17/2013 13:19:00 08/17/2013 23:59:59 CLS Outpatient BYRON BOSS MD [id number] 02/08/2013 10:18:00 02/08/2013 23:59:59 CLS Outpatient BYRON BOSS MD [id number] 12/07/2012 08:34:00 12/07/2012 23:59:59 CLS Outpatient ROMELIA FISCHER MD [id number] 12/02/2012 14:59:00 12/02/2012 23:59:59 CLS Outpatient LAURIE MORA APRN [id number] 11/01/2012 08:50:00 11/01/2012 23:59:59 CLS Outpatient [id number] 10/11/2012 08:39:00 10/11/2012 23:59:59 CLS Outpatient LAURIE MORA APRN [id number] 09/07/2012 09:19:00 09/07/2012 23:59:59 CLS Outpatient LAURIE MORA APRN [id number] 08/10/2013 14:39:00 Document Registration [id number] 06/03/2013 08:05:00 Document Registration [id number] 06/03/2013 08:05:00 Document Registration [id number] 02/08/2013 10:18:00 Document Registration [id number] 06/10/2019 11:00:00 06/10/2019 23:59:59 CLS Outpatient K[facility] [id number] 05/02/2019 14:40:00 Document Registration [id number] 07/13/2018 13:20:00 Document Registration [id number] 07/08/2018 15:20:00 Document Registration [id number] 11:00:00 Document Registration [id number] 06/08/2019 12:05:00 06/08/2019 23:59:59 CLS Preadmit JESSY PANDEY PRECISION THREAD GRINDER OPERATOR [facility] RAD COPD [id number] 05/26/2019 10:45:00 05/26/2019 23:59:59 CLS Outpatient JESSY PANDEY PRECISION THREAD GRINDER OPERATOR [facility] LAB ABG [id number] 04/27/2019 10:33:00 04/27/2019 23:59:59 CLS Outpatient MARINA BIRMINGHAM MD [facility] REHAB S/P R BKA [id number] 12/31/2018 12:05:00 12/31/2018 23:59:59 CLS Preadmit KING FISHMAN MD [facility] RAD ROUTINE ADULT HEALTH MAINTENANCE [id number] 11/26/2018 15:58:00 12/01/2018 12:05:00 DIS Inpatient SALGUERO DO, LADONNA K [facility] 4TH GASTROENTERITIS,UTI [id number] 08/02/2018 08:15:00 08/02/2018 23:59:59 CLS Preadmit JESSY PANDEY PRECISION THREAD GRINDER OPERATOR [facility] PULM COPD,SOB [id number] 05/03/2018 08:12:00 08/01/2018 00:01:00 DIS Outpatient JESSY PANDEY PRECISION THREAD GRINDER OPERATOR [facility] PULM COPD,SOB [id number] 07/30/2018 11:45:00 07/30/2018 14:55:00 DIS Outpatient LEONEL ORTIZ MD [facility] ENDO +BLOOD IN STOOL/FAMILY HX COLON CA [id number] 07/23/2018 05:49:00 07/23/2018 11:04:00 DIS Outpatient LEONEL ORTIZ MD [facility] PREOP COLONOSCOPY [id number] 05/27/2018 10:09:00 05/27/2018 23:59:59 CLS Outpatient JESSY PANDEY PRECISION THREAD GRINDER OPERATOR [facility] RAD COPD [id number] 05/14/2018 15:04:00 05/14/2018 16:20:00 DIS Emergency THOMPSON QURESHI PRECISION THREAD GRINDER OPERATOR [facility] ER R ANKLE PAIN/COLD [id number] 04/24/2018 20:37:00 04/25/2018 06:48:00 DIS Outpatient JESSY PANDEY PRECISION THREAD GRINDER OPERATOR [facility] SLEEP COPD,SOB [id number] 03/31/2018 11:36:00 03/31/2018 23:59:59 CLS Outpatient KOFI OLVERA FACC, ALI FACP CCDS [facility] RAD R07.89 CHEST PAIN [id number] 03/09/2018 06:49:00 03/09/2018 12:30:00 DIS Outpatient KOFI OLVERA FACC, ALI FACP CCDS [facility] CATH CAD [id number] 03/03/2018 09:01:00 03/03/2018 11:50:00 DIS Outpatient LEONEL ORTIZ MD [facility] ENDO DYSPHAGIA [id number] 02/26/2018 05:52:00 02/26/2018 12:49:00 DIS Outpatient LEONEL ORTIZ MD [facility] PREOP EGD [id number] 02/21/2018 16:36:00 02/21/2018 19:07:00 DIS Emergency FELICIA ENCINAS DO K [facility] ER WEAKNESS [id number] 02/15/2018 10:22:00 02/15/2018 15:46:00 DIS Emergency MARLA EVERETT MD [facility] ER CP [id number] 01/07/2018 16:24:00 01/07/2018 19:40:00 DIS Emergency HARDEEP DORANTES [facility] ER FALL WITH BIG BUMP ON L LEG [id number] 12/29/2017 12:20:00 12/29/2017 23:59:59 CLS Outpatient KOFI OLVERA FACC, ALI FACP CCDS [facility] RAD I25.10 CAD [id number] 12/21/2017 13:54:00 12/21/2017 23:59:59 CLS Outpatient KYLAH CREWS AUDIT ASSOCIATE [facility] CARD I25.5 CARDIOMYOPATHY [id number] 12/02/2017 08:24:00 12/02/2017 23:59:59 CLS Outpatient KOFI OLVERA FACC, ALI FACP CCDS [facility] RT R06.02 SOB [id number] 12/01/2017 08:04:00 12/01/2017 23:59:59 CLS Outpatient KOFI OLVERA FACC, ALI FACP CCDS [facility] CARD R06.02 SOB [id number] 11/26/2017 11:24:00 11/26/2017 23:59:59 CLS Outpatient KOFI OLVERA FACC, ALI FACP CCDS [facility] CARD R06.02 SOB [id number] 11/09/2017 12:27:00 11/09/2017 23:59:59 CLS Outpatient BILL CLEMENTE DO [facility] RAD ABNORMAL MAMMO [id number] 10/27/2017 12:24:00 10/27/2017 23:59:59 CLS Outpatient BILL CLEMENTE DO [facility] RAD SCREENING [id number] 12/31/2016 10:19:00 12/31/2016 23:59:59 CLS Outpatient ADELFO WASHINGTON AUDIT ASSOCIATE [facility] RAD AAA [id number] 04/07/2016 08:25:00 04/07/2016 11:40:00 DIS Outpatient ALVIN SALDANA MD [facility] SDC DYSKINESIA [id number] 04/02/2016 05:42:00 04/02/2016 11:05:00 DIS Outpatient ALVIN SALDANA MD [facility] PREOP DYSKINSIA [id number] 03/11/2016 11:17:00 03/11/2016 23:59:59 CLS Outpatient KOFI OLVERA FACC, BRADLY NIX CCDS [facility] LAB CAD,HYPERLIPIDEMIA [id number] 03/09/2016 16:47:00 03/09/2016 19:30:00 DIS Emergency KARLOS OLVERA, MARLA Ackerman [facility] ER FEVER/DIARRHEA [id number] 03/05/2016 19:11:00 03/05/2016 21:37:00 DIS Emergency INES REYNOSO MD [facility] ER EYE SWELLING/ANKLE PAIN FROM FALL [id number] 12/18/2015 08:53:00 12/18/2015 23:59:59 CLS Outpatient KYLAH CREWS [facility] RAD ABDOMEN AORTIC ECTASIA [id number] 12/09/2015 10:18:00 12/09/2015 12:47:00 DIS Emergency BETTINA ROMAN MD [facility] ER R EYE SWELLING/PAIN [id number] 12/01/2015 13:15:00 12/01/2015 15:12:00 DIS Emergency MARLA EVERETT MD [facility] ER R EYE SWELLING [id number] 10/07/2015 16:35:00 10/07/2015 18:15:00 DIS Emergency BETTINA ROMAN MD [facility] ER POST OP/BLEEDING [id number] 10/04/2015 10:45:00 10/04/2015 23:59:59 CLS Outpatient BILL CLEMENTE DO [facility] LAB RESISTANT GUINFECTIONS [id number] 09/13/2015 10:52:00 09/13/2015 23:59:59 CLS Outpatient KYLAH CREWS [facility] LAB HLP,CAD [id number] 07/30/2015 15:05:00 07/30/2015 16:25:00 DIS Emergency HARDEEP DORANTES [facility] ER BACK,HIP PAIN [id number] 07/16/2015 17:17:00 07/16/2015 18:20:00 DIS Emergency THOMPSON QURESHI APRN [facility] ER L ARM, L KNEE INJ [id number] 07/09/2015 13:52:00 07/09/2015 23:59:59 CLS Outpatient BILL CLEMENTE DO [facility] RAD TRAUMA L 3RD TOE W/DIABETES [id number] 06/11/2015 09:00:00 06/11/2015 23:59:59 CLS Outpatient KOFI OLVERA FACC, BRADLY NIX CCDS [facility] RAD ABDOMINAL AORTIAL ECTASIA [id number] 04/10/2015 10:25:00 04/10/2015 23:59:59 CLS Outpatient BILL CLEMENTE DO [facility] RAD R ANKLE PAIN, HX OF FX SURGERY [id number] 03/26/2015 11:17:00 03/26/2015 23:59:59 CLS Outpatient BILL CLEMENTE DO Radha [facility] RAD BACK PAIN, [id number] 03/16/2015 10:23:00 03/16/2015 23:59:59 CLS Outpatient BRYN PRAKASH BILL Radha [facility] LAB DM II,CAD,HLP [id number] 03/16/2015 10:20:00 03/16/2015 23:59:59 CLS Outpatient KYLAH CREWS [facility] LAB ELECTROLYTE DEPLETION,CAD,HTN,HLP [id number] 03/01/2015 07:26:00 03/01/2015 23:59:59 CLS Outpatient ETELVINA LEONARDP [facility] CARD NEAR SYNCOPE EPISODE CAD [id number] 02/19/2015 16:09:00 02/20/2015 13:40:00 DIS Inpatient CAROLYN OLVERA, QUE Bowser [facility] 4TH ORTHOSTATIC HYPOTENSION; ACUTE RENAL FAILURE [id number] 12/30/2014 11:12:00 12/30/2014 14:54:00 DIS Emergency INES REYNOSO MD [facility] ER SOA,DIZZINESS [id number] 11/03/2014 08:58:00 11/03/2014 10:36:00 DIS Emergency DANIELITO SORIANO MD [facility] ER COUGH/CONGESTION [id number] 10/30/2014 14:50:00 10/30/2014 16:25:00 DIS Emergency HARDEEP DORANTES [facility] ER NAUSEATED/BODYACHES/WEAKNESS EARACHE/RINGING [id number] 10/01/2014 13:53:00 10/01/2014 14:57:00 DIS Emergency HUANG DOFELICIA K [facility] ER RECTAL BLEEDING [id number] 09/11/2014 09:46:00 09/11/2014 23:59:59 CLS Outpatient KOFI OLVERA FACC, BRADLY NIX CCDS [facility] CARD ISCHEMIC CARDIO MYOPATHY,CAD [id number] 09/01/2014 10:58:00 09/01/2014 11:40:00 DIS Emergency THOMPSON QURESHI APRN [facility] ER SWOLLEN EYE [id number] 08/31/2014 16:55:00 08/31/2014 18:16:00 DIS Emergency THOMPSON QURESHI APRN [facility] ER NECK SWELLING [id number] 07/10/2014 09:07:00 07/10/2014 11:55:00 DIS [id number] 07/05/2014 07:29:00 07/05/2014 23:59:59 CLS Outpatient ALVIN SALDANA MD [facility] PREOP DYSPHAGIA [id number] 06/05/2014 08:24:00 06/05/2014 11:43:00 DIS [facility] HIST[facility] [id number] 05/31/2014 07:28:00 05/31/2014 23:59:59 CLS Outpatient ALVIN SALDANA MD [facility] PREOP SCREENING;FAMILY HISTORY [id number] 05/29/2014 12:18:00 05/29/2014 23:59:59 CLS Outpatient KYLAH CREWS [facility] LAB POST HEART CATH [id number] 05/23/2014 06:24:00 05/23/2014 20:30:00 DIS Outpatient KOFI OLVERA FACCBRADLY FACP CCDS [facility] CATH SHORTNESS OF BREATH CAD ABNORMAL STRESS TEST [id number] 05/08/2014 12:02:00 05/08/2014 23:59:59 CLS Outpatient KYLAH CREWS [facility] CARD CAD [id number] 02/13/2014 12:30:00 02/13/2014 14:00:00 DIS Emergency THOMPSON QURESHI APRN [facility] ER FALL/BACK PAIN [id number] 02/09/2014 19:30:00 02/11/2014 10:45:00 DIS Inpatient LADONNA SALGUERO DO [facility] ICU ACUTE COPD EXACERBATION [id number] 2014 11:48:00 2014 23:59:59 CLS Outpatient BYRON BOSS MD [facility] LAB HTN,HYPERLIPADEIA [id number] 12/12/2013 06:44:00 12/12/2013 11:43:00 DIS Outpatient PATRICIA MCDONALD MD [facility] SDC PAINFUL HARDWARE RIGHT ANKLE [id number] 12/05/2013 14:33:00 12/05/2013 23:59:59 CLS Outpatient PATRICIA MCDONALD MD [facility] PREOP PAINFUL HARDWARE RIGHT ANKLE [id number] 11/04/2013 12:22:00 11/04/2013 12:46:00 DIS Emergency MARLA EVERETT MD [facility] ER SUTURE REMOVAL [id number] 10/31/2013 10:42:00 10/31/2013 23:59:59 CLS Outpatient KYLAH CREWS [facility] CARD CAD,HTN [id number] 10/25/2013 08:26:00 10/25/2013 23:59:59 CLS Outpatient KYLAH CREWS [facility] LAB CAD,HEART VALVE DISEASE,HTN,HYPERLIPIDEMIA,COPD [id number] 10/25/2013 18:12:00 10/25/2013 20:10:00 DIS Emergency HARDEEP DORANTES [facility] ER FOOT INJ [id number] 10/21/2013 06:02:00 10/22/2013 11:11:00 DIS Outpatient EDUARDO VILLEGAS MD [facility] INTRINSIC SPHINCTER DEFICIENCY; INCONTINENCE [id number] 10/17/2013 09:25:00 10/17/2013 23:59:59 CLS Outpatient EDUARDO VILLEGAS MD [facility] PREOP INTRINSIC SPHINCTER DEFICIENCY; INCONTINENCE [id number] 08/03/2013 06:00:00 08/03/2013 09:56:00 DIS Outpatient EDUARDO VILLEGAS MD [facility] INCONTINENCE [id number] 07/27/2013 12:35:00 07/27/2013 23:59:59 CLS Outpatient EDUARDO VILLEGAS MD [facility] PREOP INCONTINENCE [id number] 06/13/2013 14:57:00 06/13/2013 23:59:59 CLS Outpatient [id number] 04/18/2013 22:12:00 04/18/2013 23:34:00 DIS Emergency FELICIA ENCINAS DO [facility] ER REACTION TO MEDICATION [id number] 04/17/2013 14:11:00 04/17/2013 15:42:00 DIS Emergency MARCO A VAN MD [facility] ER VOMITING BODY ACHES [id number] 03/26/2015 11:17:00 Document Registration [id number] 01/19/2013 18:23:00 Document Registration [id number] 01/01/2013 15:27:00 Document Registration [id number] 12/26/2012 14:21:00 Document Registration [id number] 11/11/2012 16:20:00 Document Registration [id number] 10/24/2012 23:40:00 Document Registration [id number] 09/19/2012 19:49:00 Document Registration [id number] 09/13/2012 10:47:00 Document Registration [id number] 09/08/2012 15:08:00 Document Registration [id number] 09/04/2012 17:10:00 Document Registration [id number] 06/12/2012 16:25:00 Document Registration [id number] 06/03/2012 10:41:00 Document Registration [id number] 04/16/2012 09:50:00 Document Registration [id number] 03/17/2012 10:58:00 Document Registration [id number] 03/08/2012 10:14:00 Document Registration [id number] 02/01/2012 18:50:00 Document Registration [id number] 01/28/2012 06:00:00 Document Registration [id number] 01/21/2012 09:31:00 Document Registration [id number] 11/11/2011 07:21:00 Document Registration [id number] 10/30/2011 08:09:00 Document Registration [id number] 10/27/2011 07:16:00 Document Registration [id number] 10/24/2011 12:36:00 Document Registration [id number] 10/19/2011 11:22:00 Document Registration [id number] 08/07/2011 10:17:00 Document Registration [id number] 07/14/2011 13:47:00 Document Registration [id number] 07/06/2011 18:30:00 Document Registration [id number] 03/19/2011 05:41:00 Document Registration [id number] 03/13/2011 12:47:00 Document Registration [id number] 02/12/2011 10:12:00 Document Registration [id number] 02/06/2011 08:14:00 Document Registration [id number] 01/22/2011 05:55:00 Document Registration [id number] 01/15/2011 10:27:00 Document Registration [id number] 11/08/2010 10:08:00 Document Registration [id number] 09/05/2010 05:48:00 Document Registration [id number] 09/04/2010 09:00:00 Document Registration [id number] 08/26/2010 07:15:00 Document Registration [id number] 08/07/2010 14:40:00 Document Registration [id number] 08/02/2010 08:36:00 Document Registration [id number] 05/26/2010 12:24:00 Document Registration [id number] 04/14/2010 17:58:00 Document Registration [id number] 03/08/2010 10:03:00 Document Registration [id number] 03/07/2010 09:13:00 Document Registration [id number] 02/21/2010 08:56:00 Document Registration [id number] 08/02/2009 18:35:00 Document Registration
--- NOTE | 2019-06-14 13:51 | Diagnostic Imaging Report ---
PROCEDURE: CT abdomen and pelvis with contrast. TECHNIQUE: Multiple contiguous axial images were obtained through the abdomen and pelvis after administration of intravenous contrast. Auto Exposure Controls were utilized during the CT exam to meet ALARA standards for radiation dose reduction. INDICATION: Sudden weakness. FINDINGS: Comparison is 03/31/2018. There is right base consolidation concerning for pneumonia. Liver is normal. Gallbladder is normal. No biliary ductal dilation. Portal vein is patent. Pancreas, spleen and adrenal glands are normal. Kidneys enhance symmetrically without focal lesion. No hydronephrosis. There is some gas in the urinary bladder, likely from recent catheterization. There is no pelvic mass. There are no dilated loops of large or small bowel. No free fluid or air. A aortobiiliac stent graft is present. No evidence for endoleak. Aneurysm sac is unchanged in size the maximal size of 3.4 cm. There are no suspicious osseous lesions. IMPRESSION: 1. Right lower lobe consolidation in keeping with pneumonia, possibly related to aspiration. 2. No acute abnormality in the abdomen or pelvis. Dictated by: Dictated on workstation # [id number]
[2019-06-14] MEDS ORDERED: morphine INJ 10 MG/ML 1ML (SYR OR VIAL) IVP STA (13:56)
[2019-06-14] MEDS ORDERED: IBUPROFEN 800 MG (MOTRIN) TAB PO ONE (14:00)
[2019-06-14] MEDS ORDERED: NALOXONE 0.4 MG/ML 1 ML (NARCAN) VIAL ONE (15:06)
[2019-06-14] MEDS ORDERED: NALOXONE 0.4 MG/ML 1 ML (NARCAN) VIAL IV STA (15:10)
--- NOTE | 2019-06-14 15:28 | History & Physical-Hospitalist ---
History of Present Illness HPI/Chief Complaint Pt was admitted for severe sepsis due t o RLL PNA. She is unable to provide me any history at this time due to obtundation. She reportedly presented to the ER with CC of fever, nausea, vomiting, and diarrhea. She was febrile here as well with temps up to 103. CT Chest showed a RLE and urine was consistent with a UTI. She was found to have an elevated lactic acid as well qualifying her for severe sepsis. She complained of pain throughout her stay in the ER and received fentanyl and morphine. On my arrival to the bedside she was altered and responded only to sternal rub necessitating Narcan with significant improvement in mentation. Exam Limitations: clinical condition Date Seen 06/14/19 Time Seen by a Provider: 15:22 Attending Physician Koffi Velasquez MD PCP Pradip Jaramillo MD Referring Physician Date of Admission Jun 14, 2019 at 14:21 Home Medications & Allergies Home Medications Reviewed patient Home Medication Reconciliation performed by pharmacy medication reconciliations lead quality technician and/or nursing. Patients Allergies have been reviewed. Allergies Allergies Coded Allergies Penicillins (Verified Allergy, Mild, Hives, 07/23/18) Jiwttzo-Nub-Ssx Reductase Inhibitor (Verified Allergy, Unknown, 07/23/18) amlodipine besylate (Verified Allergy, Unknown, 07/23/18) benazepril HCl (Verified Allergy, Unknown, 07/23/18) aspirin (Verified Adverse Reaction, Mild, Nausea, 07/23/18) codeine (Verified Adverse Reaction, Mild, Nausea, 07/23/18) tramadol (Verified Adverse Reaction, Mild, N/V, 07/23/18) Past Ffzscvq-Dykqnx-Bcsnfm Hx Past Med/Social Hx: Reviewed Nursing Past Med/Soc Hx Patient Social History Alcohol Use: Denies Use Recreational Drug Use: No Former Smoker, Quit: Jun 27, 2018 Type Used: Cigarettes Recent Foreign Travel: No Contact w/other who traveled: No Recent Hopitalizations: No Recent Infectious Disease Expo: No Immunizations Up To Date Tetanus Booster (TDap): Less than 5yrs Date of Pneumonia Vaccine: Jul 10, 2011 Date of Influenza Vaccine: Aug 20, 2018 Seasonal Allergies Seasonal Allergies: Yes Past Medical History Surgeries: Bladder Surgery, Cardiac, Coronary Stent, Hysterectomy, Orthopedic, Vascular Surgery Currently Using CPAP: No Currently Using BIPAP: No Cardiac: Aneurysm, Coronary Artery Disease, High Cholesterol, Hypertension Neurological: Headaches /Migraines 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: No Sexually Transmitted Disease: No HIV/AIDS: No 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 Disorders: Denies Hysterectomy, Menopausal Genitourinary: UTI-Chronic Gastrointestinal: Gastroesophageal Reflux Musculoskeletal: Arthritis, Back Injury, Chronic Back Pain, Fractures Endocrine: Diabetes, Non-Insulin dep Loss of Vision: Bilateral Hearing Impairment: Denies Psychosocial: Anxiety, Depression History of Blood Disorders: No Adverse Reaction to Blood Mike: No (N/A) Family History Reviewed Nursing Family Hx Arthritis Diabetes mellitus Hypertension No Pertinent Family Hx Patient reports she does not know Review of Systems ROS-Unable to Obtain: obtunded Constitutional: see HPI Physical Exam Physical Exam Vital Signs Vital Signs - First Documented 06/14/19 06/14/19 06/14/19 11:12 11:21 15:44 Temp 101.0 Pulse 107 Resp 18 B/P (MAP) 141/84 (103) Pulse Ox 95 O2 Delivery Nasal Cannula O2 Flow Rate 4.00 FiO2 36 Capillary Refill : Less Than 3 Seconds Height, Weight, BMI Height: 5'7.00" Weight: 182lbs. 4.0oz. 82.027073tp; 28.5 BMI Method:Stated General Appearance: Chronically ill, Moderate Distress, Other (apparant feces matted to feet) HEENT: Moist Mucous Membranes; No Scleral Icterus (L), No Scleral Icterus (R); Other (pinpoint pupils but reactive) Neck: Supple; No JVD, No Thyromegaly Respiratory: Respiratory Distress, Rhonci Cardiovascular: No Murmur, Tachycardia Gastrointestinal: Normal Bowel Sounds, Non Tender, Soft; No Distended, No Guarding, No Rebound Extremity: Normal Capillary Refill, Other (s/p BKA LLE) Neurologic/Psychiatric: Other (aroused to sternal rub) Skin: Mottled, Other (multiple wounds/scabs of varying ages on arms and legs) Results Results/Procedures Labs Laboratory Tests 06/14/19 11:02 Patient resulted labs reviewed. Imaging: Reviewed Imaging Report Assessment/Plan Admission Diagnosis Severe Sepsis Admission Status: Inpatient Order (span 2 midnights) Reason for Inpatient Admission: IV abx, will take more than two midnights to stabilize for DC Diagnosis/Problems Diagnosis/Problems (1) Sepsis Status: Resolved Assessment & Plan: febrile with leukocytosis and tachycardia PNA and UTI Continue Cefepime Will check for c diff Sepsis protocol ordered Qualifiers: Sepsis type: sepsis due to unspecified organism Qualified Codes: A41.9 - Sepsis, unspecified organism Resolution Date/Time: 11/30/18 @ 13:24 (2) Altered mental status Status: Acute Assessment & Plan: Likely due to critical illness and oversedation Narcan given x1 with improvement If needs another dose will transfer to the ICU Discussed with Dr Merino given respiration status and that she now wants to be a full code and he is in agreement if has to transfer to the unit consider narcan gtt Qualifiers: Altered mental status type: somnolence Qualified Codes: R40.0 - Somnolence (3) Urinary tract infection Status: Resolved Assessment & Plan: antibiotics as above Qualifiers: Urinary tract infection type: acute cystitis Hematuria presence: without hematuria Qualified Codes: N30.00 - Acute cystitis without hematuria Resolution Date/Time: 12/01/18 @ 11:19 (4) Pneumonia Status: Acute Assessment & Plan: Concern for aspiration with vomiting Cefepime as above Pulm consulted Qualifiers: Pneumonia type: due to unspecified organism Laterality: right Lung location: lower lobe of lung Qualified Codes: J18.1 - Lobar pneumonia, unspecified organism (5) Anemia Status: Chronic Assessment & Plan: Anemia of chronic disease trend transfuse to keep Hgb >8 given CAD and critical illness Qualifiers: Anemia type: unspecified type Qualified Codes: D64.9 - Anemia, unspecified (6) Diarrhea Status: Resolved Assessment & Plan: appears chronic reviewing old notes Will check c diff given recent abx use Qualifiers: Diarrhea type: unspecified type Qualified Codes: R19.7 - Diarrhea, unspecified Resolution Date/Time: 12/01/18 @ 11:19 (7) CAD (coronary artery disease) Status: Chronic Assessment & Plan: last cath 02/2018 showed patent stent Continue home meds Qualifiers: Coronary Disease-Associated Artery/Lesion type: unspecified vessel or lesion type [place] vs. transplanted heart: [place] heart Associated angina: without angina Qualified Codes: I25.10 - Atherosclerotic heart disease of [place] coronary artery without angina pectoris (8) Diabetes mellitus Status: Chronic Assessment & Plan: SSI Qualifiers: Diabetes mellitus type: type 2 Diabetes mellitus complication status: with skin complications (9) HTN (hypertension) Status: Chronic Assessment & Plan: Elevated while at bedside but will hold given sepsis Qualifiers: Hypertension type: essential hypertension Qualified Codes: I10 - Essential (primary) hypertension (10) COPD (chronic obstructive pulmonary disease) Status: Chronic Assessment & Plan: Chronic oxygen requirement Dr Merino consulted, appreciate recs Qualifiers: COPD type: unspecified COPD Qualified Codes: J44.9 - Chronic obstructive pulmonary disease, unspecified (11) Counseling regarding end of life decision making Assessment & Plan: Discussed code status briefly given critical illness Now elects to be Full Code I am unsure of how well she is understanding the severity of her illness so will continue these discussions tomorrow KOFFI VELASQUEZ MD Jun 14, 2019 15:27
--- NOTE | 2019-06-14 15:30 | NUR ---
MAULIK ELIZALDE admitted to room 423-1, with an admitting diagnosis of UTI, and pneumonia, on 06/14/19 from ED via stretcher, accompanied by staff.MAULIK ELIZALDE introduced to surroundings, call light, bed controls, phone, TV, temperature control, lights, meal times, smoking policy, visitor policy, side rail policy, bathrooms and showers. Patient Rights given to patient in the handbook. MAULIK ELIZALDE verbalizes understanding that [facility] is not responsible for the loss or damage to any personal effects or valuables that are kept in the patients possession during their hospitalization. The following Patient Care Plans were discussed with the patient: Discharge Planning, medications, pain management, and dehydration. MAULIK ELIZALDE verbalizes understanding of Interdisciplinary Patient Education. Patient and/or family were informed about the Rapid Response Team and its purpose.
[2019-06-14 15:31] LABS: ABG BASE EXCESS -5.1 MMOL/L (-2.5-2.5); ABG OXYGEN SATURATION 92 % (94-100); ABG PCO2 42 MMHG (35-45); ABG PO2 78 MMHG (79-93); ABG TCO2 20.7 MMOL/L (21.0-31.0)
[2019-06-14 15:32] LABS: ABG PH 7.31 (7.37-7.43); ALLENS TEST YES-POS; INSPIRED O2 4; PATIENT TEMP 103.1; VENTILATOR NO
[2019-06-14] MEDS ORDERED: LACTATED RINGERS IV PRN (15:45)
[2019-06-14] MEDS ORDERED: CATHETER FLUSH 10 ML SYR IV PRN (15:45)
[2019-06-14] MEDS: LACTATED RINGERS 1,000 ML IV SCH ×2 (15:48→19:57)
[2019-06-14] MEDS ORDERED: DULO60CA58 PO (16:09)
[2019-06-14] MEDS ORDERED: NITR100C10 PO (16:09)
[2019-06-14] MEDS ORDERED: BACL10TA PO (16:09)
[2019-06-14] MEDS ORDERED: BREX2TAB PO (16:09)
[2019-06-14] MEDS ORDERED: ONDA4TAB11 PO (16:09)
[2019-06-14] MEDS ORDERED: NAPR-915 PO (16:09)
[2019-06-14] MEDS ORDERED: DIPH1TAB25 PO (16:09)
[2019-06-14] MEDS ORDERED: TRAM50TA2 PO (16:09)
[2019-06-14] MEDS ORDERED: GBPN600T PO (16:09)
[2019-06-14] MEDS ORDERED: FESO8TAB PO (16:09)
[2019-06-14] MEDS ORDERED: PANT40TA3 PO (16:09)
[2019-06-14] MEDS ORDERED: OXYB15TA PO (16:09)
[2019-06-14] MEDS ORDERED: MIRT15TA6 PO (16:09)
[2019-06-14] MEDS ORDERED: CETI-240 PO (16:09)
--- NOTE | 2019-06-14 16:09 | Pulmonary Consultation ---
History of Present Illness History of Present Illness Date of Consultation 06/14/19 15:56 Time Seen by Provider: 16:12 Date of Admission History of Present Illness 54yo presented to ED secondary to worsening lethargy, fever, nausea, diarrhea, and SOB and found to have severe sepsis with RLL PNA. Temp in the ED is 103. PT received Fentanyl and Morphine in the ED secondary to pain. Upon arrival to 4th floor pt was unresponsive. She was give Narcan which did improve MS. Pt is currently a full code. I am consulted for pulmonary management. \\ Allergies and Home Medications Allergies Coded Allergies: Penicillins (Verified Allergy, Mild, Hives, 07/23/18) Wnvcajd-Fcs-Rsq Reductase Inhibitor (Verified Allergy, Unknown, 07/23/18) amlodipine besylate (Verified Allergy, Unknown, 07/23/18) benazepril HCl (Verified Allergy, Unknown, 07/23/18) aspirin (Verified Adverse Reaction, Mild, Nausea, 07/23/18) codeine (Verified Adverse Reaction, Mild, Nausea, 07/23/18) tramadol (Verified Adverse Reaction, Mild, N/V, 07/23/18) Home Medications Acetaminophen 500 Mg Tablet, 1,000 MG PO Q6H PRN for PAIN-MODERATE, (Reported) Albuterol Sulfate 1 Puff Puff, 2 PUFF IH Q4H PRN for SHORTNESS OF BREATH, (Reported) Albuterol Sulfate 2.5 Mg/3 Ml Vial.neb, 2.5 MG NEB TID PRN for SHORTNESS OF BREATH, (Reported) Albuterol/Ipratropium 4 Gm Aero, 2 PUFF IH QID, (Reported) Amlodipine Besylate 5 Mg Tablet, 5 MG PO DAILY, (Reported) Atorvastatin Calcium 40 Mg Tablet, 40 MG PO HS, (Reported) Baclofen 10 Mg Tablet, 10 MG PO TID PRN for MUSCLE SPASMS, (Reported) Brexpiprazole 2 Mg Tablet, 2 MG PO DAILY, (Reported) Budesonide/Formoterol Fumarate 10.2 Gm Hfa.aer.ad, 2 PUFF IH BID, (Reported) Cetirizine HCl 10 Mg Tab.chew, 10 MG PO DAILY, (Reported) Cyclobenzaprine HCl 10 Mg Tablet, 10 MG PO TID PRN for MUSCLE SPASMS, (Reported) Diphenoxylate HCl/Atropine 1 Each Tablet, 1 TAB PO QID PRN for DIARRHEA, (Reported) Duloxetine HCl 60 Mg Capsule.dr, 60 MG PO DAILY, (Reported) Fesoterodine Fumarate 8 Mg Tab.er.24h, 8 MG PO DAILY, (Reported) Fluoxetine HCl 40 Mg Capsule, 40 MG PO DAILY, (Reported) Gabapentin 600 Mg Tablet, 1,200 MG PO BID, (Reported) TAKES 2 (600MG) TABLETS Levothyroxine Sodium 50 Mcg Tablet, 50 MCG PO DAILY, (Reported) Metformin HCl 500 Mg Tablet, 500 MG PO BID, (Reported) Metoprolol Tartrate 25 Mg Tablet, 25 MG PO BID, (Reported) Mirtazapine 15 Mg Tablet, 15 MG PO HS, (Reported) Montelukast Sodium 10 Mg Tablet, 10 MG PO 1700, (Reported) Naproxen 500 Mg Tablet, 500 MG PO BID PRN for PAIN-MILD, (Reported) Nitrofurantoin Monohyd/M-Cryst 100 Mg Capsule, 100 MG PO BID, (Reported) 7 DAY SUPPLY FILLED 06-13-19 Ondansetron 4 Mg Tab.rapdis, 4 MG PO Q4H PRN for NAUSEA/VOMITING-1ST LINE, (Reported) Oxybutynin Chloride 15 Mg Tab.er.24, 15 MG PO DAILY, (Reported) Pantoprazole Sodium 40 Mg Tablet.dr, 40 MG PO DAILY, (Reported) Tramadol HCl 50 Mg Tablet, 50 MG PO BID PRN for PAIN-MODERATE, (Reported) Trazodone HCl 100 Mg Tablet, 100 MG PO HS, (Reported) Umeclidinium Brm/Vilanterol Tr 1 Each Blst.w.dev, 1 PUFF IH BID, (Reported) Past Urloafb-Fnbtxk-Yhzbzv Hx Past Med/Social Hx: Reviewed Nursing Past Med/Soc Hx Patient Social History Alcohol Use: Denies Use Recreational Drug Use: No Type Used: Cigarettes Former Smoker, Quit: Jun 27, 2018 Recent Foreign Travel: No Contact w/Someone Who Travel: No Recent Infectious Disease Expo: No Recent Hopitalizations: No Immunizations Up To Date Tetanus Booster (TDap): Less than 5yrs Date of Pneumonia Vaccine: Jul 10, 2011 Date of Influenza Vaccine: Aug 20, 2018 Seasonal Allergies Seasonal Allergies: Yes Past Medical History Surgeries: Yes (BROKEN HAND AND ANKLE, bladder stretched, bilat CTR) Bladder Surgery, Cardiac, Coronary Stent, Hysterectomy, Orthopedic, Vascular Surgery Respiratory: Yes ( O2 2L/NC @ NOC) Asthma, Chronic Bronchitis, COPD, Emphysema Currently Using CPAP: No Currently Using BIPAP: No Cardiac: Yes (CARDIAC CATHS-STENT X 1; LBBB) Aneurysm, Coronary Artery Disease, High Cholesterol, Hypertension Neurological: Yes Headaches /Migraines 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 Disorders: No 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 Disorders: Denies 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: Hysterectomy, Menopausal Sexually Transmitted Disease: No HIV/AIDS: No Genitourinary: Yes (BLADDER SUSPENSION) UTI-Chronic Gastrointestinal: Yes (ESOPHAGEAL STRICTURES/DILATIONS) Gastroesophageal Reflux Musculoskeletal: Yes Arthritis, Back Injury, Chronic Back Pain, Fractures Endocrine: Yes Diabetes, Non-Insulin dep Loss of Vision: Bilateral Hearing Impairment: Denies Cancer: No Psychosocial: Yes Anxiety, Depression Integumentary: No Blood Disorders: No Adverse Reaction/Blood Tranf: No (N/A) Family Medical History Reviewed Nursing Family Hx Arthritis Diabetes mellitus Hypertension No Pertinent Family Hx Patient reports she does not know Review of Systems Time Seen by Provider: 07:01 Constitutional: Fever, Chills, Sweats, Weakness, Malaise, Other Eyes: No: Pain, Vision change, Conjunctivae inflammation, Eyelid inflammation, Other, Redness ENT: No: Ear pain, Ear discharge, Nose pain, Nose discharge, Nose congestion, Mouth pain, Mouth swelling, Throat pain, Throat swelling, Other Respiratory: Cough, Dry, Shortness of breath, SOB with excertion, Wheezing; No: Hemoptysis Cardiovascular: Palpitations, Paroxysmal Noc. Dyspnea Gastrointestinal: Nausea, Abdominal Pain, Diarrhea Neurological: Weakness Sepsis Event Evaluation Height, Weight, BMI Height: 5'7.00" Weight: 182lbs. 4.0oz. 82.499259zm; 28.5 BMI Method:Stated Exam Exam Vital Signs Date Time Temp Pulse Resp B/P (MAP) Pulse Ox O2 Delivery O2 Flow Rate FiO2 06/14/19 14:53 101.7 113 20 155/82 (106) 99 06/14/19 13:18 102.8 112 20 165/95 90 Nasal Cannula 3.00 06/14/19 11:33 101.3 104 20 155/82 95 Nasal Cannula 3.00 06/14/19 11:21 101.0 107 18 141/84 (103) 92 2.00 06/14/19 11:12 95 Nasal Cannula 4.00 Height & Weight Height: 5'7.00" Weight: 182lbs. 4.0oz. 82.839950zi; 28.5 BMI Method:Stated General Appearance: Chronically ill, Moderate Distress, Other (apparant feces matted to feet) HEENT: Moist Mucous Membranes; No Scleral Icterus (L), No Scleral Icterus (R); Other (pinpoint pupils but reactive) Neck: Supple; No JVD, No Thyromegaly Respiratory: Respiratory Distress, Rhonci Cardiovascular: No Murmur, Tachycardia Capillary Refill: Less Than 3 Seconds Extremity: Normal Capillary Refill, Other (s/p BKA LLE) Neurologic/Psychiatric: Alert, Other (aroused to sternal rub) Skin: Mottled, Other (multiple wounds/scabs of varying ages on arms and legs) Results Lab Laboratory Tests 06/14/19 11:02 Assessment/Plan Assessment/Plan Sepsis secondary to PNA and UTI -Cefepime add Flagyl -Transfer to ICU Possible aspiration PNA -Aspiration precautions Metabolic lactic acidosis -IVF -Monitor Dehydration -IVF COPDAE -SVNS Metabolic encephalopathy s/p Narcan -Possibly will need narcan gtt -Monitor close Anemia -Monitor Diarrhea -CDiff toxin pending CAD CHF ROSE OSBORN DO Jun 14, 2019 16:09
--- OUTSIDE RECORDS SUMMARY | 2019-06-14 16:11 | XMS REPORT | Clinical Summary ---
Author Author [facility] Organization [facility] Address Unknown Phone Unavailable Care Team Providers Care Sheep Farmer Name Role Phone Osvaldo Palafox DO Unavailable [...] you expected, contact Release of Information in [facility] Information Management department at [phone] for further assistan ce in locating additional records.[facility] Allergies Comments Active Allergy Reactions [...] Durbin - referral to Dr. 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 Respiratory Rate 95% 03/11/2019 8:33 AM CDT Oxygen Saturation - - Inhaled Oxygen Concentration 82.6 kg (182 lb) 06/03/2019 1:10 PM CDT Weight 170.2 cm (5' 7") 06/03/2019 1:10 PM CDT Height 28.51 06/03/2019 1:10 PM CDT Body Mass Index Plan of Treatment Care Team Description Date Type Specialty Rishi Cartwright MD [address] [facility] [address] [place] [address] [phone] Mixed urge and stress incontinence 08/12/2019 Hospital Encounter Rishi Cartwright MD [address] [facility] [address] [place] [address] [phone] CYSTOURETHROSCOPY WITH INJECTION FOR CHEMODENERVATION OF THE [...] COLI, ESBL POSITIVE (A) Report Status FINAL [facility] 06/06/2019 Organism ID >[id number] organisms/ml [facility] ESCHERICHIA COLI, ESBL POSITIVE Specimen Urine [...] positive Performing Organization Address City/State/Zipcode Phone Number [facility] [address] [place] [address] * POC URINE DIPSTICK MANUAL READ (06/03/2019) Urine Glucose neg IN CLINIC POC Urine Bilirubin neg IN CLINIC POC Urine Ketone neg IN CLINIC POC Urine Specific 1.005 IN CLINIC [place] POC Urine Blood POC neg IN CLINIC [...] Medicaid [place] xxxxxxxxxxx 2018-P [facility] Advance Directives Patient Video Editing Intern Explanation Type Date Recorded Advance 09/08/2014 3:19 [...]
--- OUTSIDE RECORDS SUMMARY | 2019-06-14 16:11 | XMS REPORT | Encounter Summary ---
Author Author [facility] Organization [facility] Address Unknown Phone Unavailable Care Team Providers Care Fuse Cutter Name Role Phone AnaliaOsvaldo echols Unavailable Hermila Durbin MD Unavailable Rishi Cartwright MD Unavailable Donell Haque PA-C Unavailable Lizet Parsons RN Unavailable Unavailable Kristofer Dowling MD Unavailable Unavailable Harvinder Jj MD PCP Slade Merino DO 4 Reason for Visit * Reason Comments Urinary Frequency Urinary Incontinence Encounter Details Care Team Description Date Type Department Rishi Cartwright MD [address] [facility] [address] [place] [address] Acute cystitis without hematuria (Primary Dx); Urge incontinence; Urinary urgency; Urinary frequency 06/03/2019 Office Visit [facility] [address] [place] [address] Social History Date Tobacco Use [...] instru ctions. Thank you for choosing the [facility] Department of Urology for [...] a 54 y.o. female w/ PMH of NC, DM, and mixed urinary and str ess incontinence who presents for worsening of voiding dysfunction following derek botulinum treatment in 01/2019. History of Present Illness Xin Fonseac is a 54 y.o. female w/ PMH of NC, DM, and mixed urinary and str ess [...] by Hermila Durbin MD at Main OR/Periop [place] CYSTOURETHROSCOPY INJ CHEMODENERVATION BLADDER N/A 09/16/2016 CYSTOSCOPY BOTOX INJECTIONS (200 UNITS) performed by Hermila Durbin MD at Main OR/Periop ABDOMINAL AORTIC ANEURYSM REPAIR, OPEN 2017 [place] CYSTOURETHROSCOPY INJ CHEMODENERVATION BLADDER N/A 03/17/2017 CYSTOSCOPY [...] a 54 y.o. female w/ PMH of NC, DM, and mixed urinary and st ress [...] Date Type Specialty Rishi Cartwright MD [address] [facility] [address] [place] [address] [phone] Mixed urge and stress incontinence 08/12/2019 Hospital Encounter Rishi Cartwright MD [address] [facility] [address] [place] [address] [phone] CYSTOURETHROSCOPY WITH INJECTION FOR CHEMODENERVATION OF THE [...] Phone Number [facility] [address] [place] [address] * POC URINE DIPSTICK MANUAL READ (06/03/2019) Urine Glucose neg IN CLINIC POC Urine Bilirubin neg IN CLINIC POC Urine Ketone neg IN CLINIC POC Urine Specific 1.005 IN CLINIC [place] POC Urine Blood POC neg IN CLINIC Urine PH POC 7.5 IN CLINIC Urine Protein neg IN CLINIC POC Urine 0.2 IN CLINIC Urobilinogen POC Urine Nitrite positive IN CLINIC POC Urine moderate IN CLINIC Leukocytes POC Color,UA yellow IN CLINIC Turbidity,UA clear IN CLINIC Specimen Urine - Urine Performing Organization Address [facility] documented in this encounter Visit Diagnoses Diagnosis Acute cystitis without hematuria - Primary Acute cystitis Urge incontinence Urinary urgency Urgency of urination Urinary frequency documented in this encounter
--- OUTSIDE RECORDS SUMMARY | 2019-06-14 16:11 | XMS REPORT | Encounter Summary ---
Author Author [facility] Organization [facility] Address Unknown Phone Unavailable Care Team Providers Care Metal Roofer Name Role Phone AnaliaonesimoOsvaldo DO Unavailable Hermila Durbin MD Unavailable Rishi Cartwright MD Unavailable Donell Haque PA-C Unavailable Lizet Parsons RN Unavailable Unavailable Kristofer Dowling MD Unavailable Unavailable Harvinder Jj MD PCP Slade Merino DO 4 Reason for Referral * Radiology Services (Routine) Referred By Contact Referred To Contact Status Reason Specialty Diagnoses / Procedures Rishi Cartwright MD [address] [facility] [address] [place] [address] New Request Radiology Diagnoses Urge incontinence Urinary urgency Urinary frequency P rocedures VIDEO URODYAMIC VOIDING IN RAD Encounter Details Care Team Description Date Type Department Rishi Cartwright MD [address] [facility] [address] [place] [address] Urge incontinence (Primary Dx); Urinary urgency; Urinary frequency 06/09/2019 Orders Only [facility] [address] [place] [address] Social History Date Tobacco Use [...] Date Type Specialty Rishi Cartwright MD [address] [facility] [address] [place] [address] [phone] Mixed urge and stress incontinence 08/12/2019 Hospital Encounter Rishi Cartwright MD [address] [facility] [address] [place] [address] [phone] CYSTOURETHROSCOPY WITH INJECTION FOR CHEMODENERVATION OF THE [...]
--- OUTSIDE RECORDS SUMMARY | 2019-06-14 16:11 | XMS REPORT | Encounter Summary ---
Author Author [facility] Organization [facility] Address Unknown Phone Unavailable Care Team Providers Care Weight Trainer Name Role Phone AnaliaOsvaldo echols Unavailable Hermila Durbin MD Unavailable Rishi Cartwright MD Unavailable Donell Haque PA-C Unavailable Lizet Parsons RN Unavailable Unavailable Kristofer Dowling MD Unavailable Unavailable Harvinder Jj MD PCP Slade Merino DO 4 Reason for Visit * Reason Comments Results Urine culture Encounter Details Care Team Description Date Type Department Rishi Cartwright MD [address] [facility] [address] [place] [address] Results (Urine culture) 06/06/2019 Telephone [facility] [address] [place] [address] Social History Date Tobacco Use [...] Type Specialty Rishi Cartwright MD [address] [facility] [address] [place] [address] [phone] Mixed urge and stress incontinence 08/12/2019 Hospital Encounter Rishi aCrtwright MD [address] [facility] [address] [place] [address] [phone] CYSTOURETHROSCOPY WITH INJECTION FOR CHEMODENERVATION OF THE BLADDER (BOTOX 200 UNITS) 08/12/2019 Surgery documented as of this encounter Visit Diagnoses Not on filedocumented in this encounter
--- OUTSIDE RECORDS SUMMARY | 2019-06-14 16:11 | XMS REPORT | Encounter Summary ---
Author Author [facility] Organization [facility] Address Unknown Phone Unavailable Care Team Providers Care Road Crossing Guard Name Role Phone AnaliaOsvaldo echols Unavailable Hermila Durbin MD Unavailable Rishi Cartwright MD Unavailable Donell Haque PA-C Unavailable Lizet Parsons RN Unavailable Unavailable Kristofer Dowling MD Unavailable Unavailable Harvinder Jj MD PCP Slade Merino DO 4 Reason for Visit * Reason Comments Medication Follow-up Encounter Details Care Team Description Date Type Department Rishi Cartwright MD [address] Ortho/Med Pavilion L[address] [place] [address] Medication Follow-up 06/09/2019 Telephone [facility] [address] Level 2 [place] [address] Social History Date Tobacco [...] Date Type Specialty Rishi Cartwright MD [address] Ortho/Med Pavilion L[address] [place] [address] [phone] Mixed urge and stress incontinence 08/12/2019 Hospital Encounter Rishi Cartwright MD [address] Ortho/Med Pav[address] [place] [address] [phone] CYSTOURETHROSCOPY WITH INJECTION FOR CHEMODENERVATION OF THE BLADDER (BOTOX 200 UNITS) 08/12/2019 Surgery documented as of this encounter Visit Diagnoses Not on filedocumented in this encounter
--- OUTSIDE RECORDS SUMMARY | 2019-06-14 16:11 | XMS REPORT | Encounter Summary ---
Author Author [facility] Organization [facility] Address Unknown Phone Unavailable Care Team Providers Care Corporate Ethics Officer Name Role Phone AnaliaOsvaldo echols Unavailable Hermila Durbin MD Unavailable Rishi Cartwright MD Unavailable Donell Haque PA-C Unavailable Lizet Parsons RN Unavailable Unavailable Kristofer Dowling MD Unavailable Unavailable Harvinder Jj MD PCP Slade Merino DO 4 Encounter Details Care Team Description Date Type Department Rishi Cartwright MD [address] Ortho/Med Pavilion Lvl [address] [place] [address] 06/08/2019 Documentation [facility] [address] [place] [address] Social History Date Tobacco Use [...] Date Type Specialty Rishi Cartwright MD [address] [facility] [address] [place] [address] [phone] Mixed urge and stress incontinence 08/12/2019 Hospital Encounter Rishi Cartwright MD [address] Ortho/Med Pavilion [address] [place] [address] [phone] CYSTOURETHROSCOPY WITH INJECTION FOR CHEMODENERVATION OF THE BLADDER (BOTOX 200 UNITS) 08/12/2019 Surgery documented as of this encounter Visit Diagnoses Not on filedocumented in this encounter
--- OUTSIDE RECORDS SUMMARY | 2019-06-14 16:12 | XMS REPORT | Encounter Summary ---
Author Author [facility] Organization [facility] Address Unknown Phone Unavailable Care Team Providers Care Track Watchman Name Role Phone Osvaldo Palafox DO Unavailable Hermila Durbin MD Unavailable Rishi Cartwright MD Unavailable Donell Haque PA-C Unavailable Lizet Parsons RN Unavailable Unavailable Kristofer Dowling MD Unavailable Unavailable Harvinder Jj MD PCP Slade Merino DO 4 Reason for Visit * Auth/Cert Referred By Contact Referred To Contact Status Reason Specialty Diagnoses / Procedures Diagnoses Urge incontinence Urge incontinence [N39.41] P rocedures [place] CYSTOURETHROSCOPY INJ CHEMODENERVATION BLADDER CYSTOURETHROSCOPY WITH INJECTION FOR CHEMODENERVATION OF THE BLADDER (BOTOX 200 UNITS) Encounter Details Care Team Description Date Type Department Hermila Durbin MD [address] Ortho/Med Pavilion Lvl [address] [place] [address] CYSTOURETHROSCOPY WITH INJECTION FOR CHEMODENERVATION OF THE BLADDER (BOTOX 200 UNITS) 02/08/2019 Surgery [facility] OR [address] [address] Social History Date Tobacco Use [...] Kirti Olivas, RN - 01/19/2019 11:24 AM CHRISTIAN SCIENCE READER GENERAL INFORMATION Before you come to the hospital Make arrangements for a responsible adult to drive you home and stay with you for 24 hours following surgery. Bath/Shower Instructions {BATH/SHOWER INSTRUCTIONS:74998} Leave money, credit cards, jewelry, and any other valuables at home. [facility] is not responsible for the loss or breakage of persona l items. Remove nail mongolian, makeup and all jewelry (including piercings) before comin g to the hospital. The morning of your procedure: brush your teeth and tongue do not smoke do not shave the area where you will have surgery What to bring to the hospital ID/ Insurance Card Single End Sewer card Official documents for legal guardianship Copy of your Living Will, Advanced Directives, and/or Durable Power of Attorn ey Small bag with a few personal belongings {OTHER PERSONAL ITEMS:75154} Dress in clean, loose, comfortable clothing Eating or drinking before surgery {FOOD/DRINK:16717} Other instructions: Other instructions Notify your surgeon if: there is a possibility that you are you become ill with a cough, fever, sore throat, nausea, vomiting or flu-like symptoms you have any open wounds/sores that are red, painful, draining, or are new si nce you last saw the doctor you need to cancel your procedure {ARRIVAL TIME:} Notify us at {SURGERY CONTACT PHONE NUMBERS:59040} if you need to cancel your procedure if you are going to be late Arrival at the hospital STIAN SCIENCE READER * Pre-Anesthesia Medication Instructions* Reji Vazquez, PHARMD - 01/20/2019 12:46 PM CHRISTIAN SCIENCE READER YOUR MEDICATIONS: albuterol (VENTOLIN HFA, PROAIR HFA) [...] any medicine updates o r questions. E-mail: [email or web address] Before going home from the hospital, please ask your doctor when you should re-s tart your medicines that were stopped before surgery. STIAN SCIENCE READER documented in this encounter Medications at Time [...] Reji Vazquez, PHARMD - 01/20/2019 12:49 PM CHRISTIAN SCIENCE READER PAC Pharmacist Medication Plan Note: We were [...] patient who verbalized understanding. Reji Vazquez PHARMD STIAN SCIENCE READER * Kirti Olivas RN - 01/19/2019 11:30 AM CHRISTIAN SCIENCE READER PAC phone triage assessment completed with pt [...] understanding of instructions and declined a copy. STIAN SCIENCE READER documented in this encounter H&P Notes * [...] 24 hours): POC Glucose (Download): 98 (02/08/19 1124) I have examined the patient, and there are no significant changes in their condi tion, from the previous H&P performed on 01/10/19. Maicol Marshall MD Pager [phone] ATTESTATION I personally performed the james portions of the E/M visit, discussed case with re sident and concur with resident documentation of history, physical exam, assessm ent, and treatment plan unless otherwise noted. Staff name: Hermila Durbin MD * Hermila Durbin MD - 01/10/2019 2:45 PM CHRISTIAN SCIENCE READER Date of Service: 01/10/2019 Subjective: History of [...] Chronic pain COPD (chronic obstructive pulmonary disease) ([facility]) Depression DM (diabetes mellitus) ([facility]) Dyslipidemia GERD (gastroesophageal reflux disease) Hayfever [...] (200 UNITS) performed by Hermila gordillo MD [place] CYSTOURETHROSCOPY INJ CHEMODENERVATION BLADDER N/A 09/16/2016 CYSTOSCOPY BOTOX INJECTIONS (200 UNITS) performed by Hermila Durbin MD at [facility] OR/Periop ABDOMINAL AORTIC ANEURYSM REPAIR, OPEN 2017 [place] CYSTOURETHROSCOPY INJ CHEMODENERVATION BLADDER N/A 03/17/2017 CYSTOSCOPY [...] otherwise noted. Staff name: Hermila Durbin MD STIAN SCIENCE READER documented in this encounter Miscellaneous Notes * [...] Specimen(s) Removed/Disposition: none Maicol Marshall MD Pager [phone] ATTESTATION I performed this procedure with a resident. Staff name: Hermila Durbin MD documented in this encounter Plan of Treatment Care Team Description Date Type Specialty Rishi Cartwright MD [address] [facility] Ortho/Med Pavilion Lvl [address] [place] [address] [phone] Mixed urge and stress incontinence 08/12/2019 Hospital Encounter Rishi Cartwright MD [address] [facility] Ortho/Med Pavilion Lvl [address] [place] [address] [phone] CYSTOURETHROSCOPY WITH INJECTION FOR CHEMODENERVATION OF THE [...] MG/DL MAIN LAB Specimen Performing Organization Address [facility] LAB [address] [place] [address] * POC GLUCOSE (02/08/2019 11:21 AM CDT) Glucose, POC 98 70 - 100 MG/DL MAIN LAB Specimen Performing Organization Address City/[facility] Phone [facility] LAB [address] [place] [address] * TELEMETRY STRIPS-SCAN (02/08/2019 12:00 AM CDT) [...]
--- OUTSIDE RECORDS SUMMARY | 2019-06-14 16:12 | XMS REPORT | Encounter Summary ---
Author Author [facility] Organization [facility] Address Unknown Phone Unavailable Care Team Providers Care Stone Mill Operator Name Role Phone Analiaonesimo Osvaldo PRAKASH Unavailable Hermila Durbin MD Unavailable Rishi Cartwright MD Unavailable Donell Haque PA-C Unavailable Lizet Parsons RN Unavailable Unavailable Kristofer Dowling MD Unavailable Unavailable Harvinder Jj MD PCP Slade Merino DO 4 Reason for Visit * Reason Comments Medication Refill Encounter Details Care Team Description Date Type Department Slade Prasad MD [address] [place] [address] 04/11/2019 Refill [facility] [address] [id number] Social History Date Tobacco Use Types Packs/Day [...] Date Type Specialty Rishi Cartwright MD [address] Ortho/Med Pavilion Lvl [address] [place] [address] [phone] Mixed urge and stress incontinence 08/12/2019 Hospital Encounter Rishi Cartwright MD [address] Ortho/Med Pavilion Lvl [address] [place] [address] [phone] CYSTOURETHROSCOPY WITH INJECTION FOR CHEMODENERVATION OF THE BLADDER (BOTOX 200 UNITS) 08/12/2019 Surgery documented as of this encounter Visit Diagnoses Not on filedocumented in this encounter
--- OUTSIDE RECORDS SUMMARY | 2019-06-14 16:12 | XMS REPORT | Encounter Summary ---
Author Author [facility] Organization [facility] Address Unknown Phone Unavailable Care Team Providers Care Ctrs Name Role Phone Osvaldo Palafox DO Unavailable Hermila Durbin MD Unavailable Rishi Cartwright MD Unavailable Donell Haque PA-C Unavailable Lizet Parsons RN Unavailable Unavailable Kristofer Dowling MD Unavailable Unavailable Harvinder Jj MD PCP Slade Merino DO 4 Reason for Referral * Consult, Test & Treat (Routine) Referred By Contact Referred To Contact Status Reason Specialty Diagnoses / Procedures Pradip Jaramillo MD [address] Ortho/[place] [address] Closed Specialty Services Diagnoses Required Complete below knee amputation of lower extremity, right, sequela (HCC) Reason for Visit * Reason Comments Referral referral to physical therapy Encounter Details Care Team Description Date Type Department Pradip Jaramillo MD [address] Ortho/[place] [address] Referral (referral to physical therapy) 03/23/2019 Telephone [facility] [address] [place] [address] Social History Date Tobacco Use [...] would like to attend outpatient PT at [facility] in [place], [place]. Orders faxed to [phone], office [phone]. documented in this encounter Plan of Treatment Care Team Description Date Type Specialty Rishi Cartwright MD [address] [facility] Ortho/Med Pavilion Lvl [address] [place] [address] [phone] Mixed urge and stress incontinence 08/12/2019 Hospital Encounter Rishi Cartwright MD [address] Ortho/Med Pavilion Lvl [address] [place] [address] [phone] CYSTOURETHROSCOPY WITH INJECTION FOR CHEMODENERVATION OF THE [...]
--- OUTSIDE RECORDS SUMMARY | 2019-06-14 16:12 | XMS REPORT | Encounter Summary ---
Author Author [facility] Organization [facility] Address Unknown Phone Unavailable Care Team Providers Care Film Composer Name Role Phone Osvaldo Palafox Unavailable Hermila Durbin MD Unavailable Rishi Cartwright MD Unavailable Donell Haque PA-C Unavailable Lizet Parsons RN Unavailable Unavailable Kristofer Dowling MD Unavailable Unavailable Harvinder Jj MD PCP Slade Merino DO 4 Reason for Visit * Reason Comments Medication Refill Encounter Details Care Team Description Date Type Department Hermila Durbin MD [address] Ortho/Med Pavilion L[address] [place] [address] [phone] 02/28/2019 Refill [facility] [address] [place] [id number] Social History Date Tobacco Use Types Packs/Day [...] Date Type Specialty Rishi Cartwright MD [address] Ortho/Med Pavilion L[address] [place] [address] [phone] Mixed urge and stress incontinence 08/12/2019 Hospital Encounter Rishi Cartwright MD [address] Ortho/Med Pavilion L[address] [place] [address] [phone] CYSTOURETHROSCOPY WITH INJECTION FOR CHEMODENERVATION OF THE BLADDER (BOTOX 200 UNITS) 08/12/2019 Surgery documented as of this encounter Visit Diagnoses Not on filedocumented in this encounter
--- OUTSIDE RECORDS SUMMARY | 2019-06-14 16:12 | XMS REPORT | Encounter Summary ---
Author Author [facility] Organization [facility] Address Unknown Phone Unavailable Care Team Providers Care Rental Sales Agent Name Role Phone Sarbjitmaryanne Osvaldo PRAKASH Unavailable Hermila Durbin MD Unavailable Rishi Cartwright MD Unavailable Donell Haque PA-C Unavailable Lizet Parsons RN Unavailable Unavailable Kristofer Dowling MD Unavailable Unavailable Harvinder Jj MD PCP Slade Merino DO 4 Reason for Visit * Reason Comments Pain right leg pain Encounter Details Care Team Description Date Type Department Slade Prasad MD [address] [facility] [place] [address] Pain (right leg pain) 04/08/2019 Telephone [facility] [address] [address] Social History Date Tobacco Use [...] Date Type Specialty Rishi Cartwright MD [address] Ortho/Med Pavilion Lvl [address] [place] [address] [phone] Mixed urge and stress incontinence 08/12/2019 Hospital Encounter Rishi Cartwright MD [address] Ortho/Med Pavilion Lvl [address] [place] [address] [phone] CYSTOURETHROSCOPY WITH INJECTION FOR CHEMODENERVATION OF THE BLADDER (BOTOX 200 UNITS) 08/12/2019 Surgery documented as of this encounter Visit Diagnoses Not on filedocumented in this encounter
--- OUTSIDE RECORDS SUMMARY | 2019-06-14 16:12 | XMS REPORT | Encounter Summary ---
Author Author [facility] Organization [facility] Address Unknown Phone Unavailable Care Team Providers Care Senior Pensions Administrator Name Role Phone Osvaldo Palafox DO Unavailable Hermila Durbin MD Unavailable Rishi Cartwright MD Unavailable Donell Haque PA-C Unavailable Lizet Parsons RN Unavailable Unavailable Kristofer Dowling MD Unavailable Unavailable Harvinder Jj MD PCP Slade Merino DO 4 Reason for Referral * Consult, Test & Treat (Routine) Referred By Contact Referred To Contact Status Reason Specialty Diagnoses / Procedures Slade Prasad MD [address] [place] [address] [facility] [address] [place] [address] Closed Specialty Services Diagnoses Required Below knee amputation status, right (HCC) Gait abnormality Reason for Visit * Reason Comments Amputation prosthetic evaluation Encounter Details Care Team Description Date Type Department Slade Prasad MD [address] [facility] [place] [address] Below knee amputation status, right (HCC) (Primary Dx); Gait abnormality; 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 Slade Prasad [facility] [address] [place], [place] [address] For scheduling, cancelling, or changing appointments [phone] For prescription refills, please contact your pharmacy. Please allow 2-3 days f or refill requests to be filled. For information on spinal conditions, please visit [email or web address] documented in this encounter Progress Notes * [...] for IADL such as shopping, and attends [facility] services and events such as dog walking, [...] COPD (chronic obstructive pulmonary disease) ([facility]) Depression DM (diabetes mellitus) ([facility]) Dyslipidemia GERD (gastroesophageal reflux disease) Hayfever HTN (hypertension) Hypothyroidism IC (interstitial cystitis) Ischemic cardiomyopathy Mixed stress and urge urinary incontinence Myocardial infarction ([facility]) 2009 Neuropathy OAB (overactive bladder) On supplemental oxygen therapy 2L at night Seizure ([facility]) in high school Tobacco use Past [...] by Hermila Durbin MD at [facility] OR/Periop [place] CYSTOURETHROSCOPY INJ CHEMODENERVATION BLADDER N/A 09/16/2016 [...] Date Type Specialty Rishi Cartwright MD [address] [place] [address] Ortho/Med Pavilion L[address] [place] [address] [phone] Mixed urge and stress incontinence 08/12/2019 Hospital Encounter Rishi Cartwright MD [address] [place] [address] [facility]Med Pavilion [address] [place] [address] [phone] CYSTOURETHROSCOPY WITH INJECTION FOR CHEMODENERVATION OF THE [...]
--- OUTSIDE RECORDS SUMMARY | 2019-06-14 16:12 | XMS REPORT | Encounter Summary ---
Author Author [facility] Organization [facility] Address Unknown Phone Unavailable Care Team Providers Care Online Marketing Coordinator Name Role Phone Osvaldo Palafox DO Unavailable Hermila Durbin MD Unavailable Rishi Cartwright MD Unavailable Donell Haque PA-C Unavailable Lizet Parsons RN Unavailable Unavailable Kristofer Dowling MD Unavailable Unavailable Harvinder Jj MD PCP Slade Merino DO 4 Reason for Visit * Auth/Cert Referred By Contact Referred To Contact Status Reason Specialty Diagnoses / Procedures Diagnoses Urge incontinence Urge incontinence [N39.41] P rocedures CT CYSTOURETHROSCOPY INJ CHEMODENERVATION BLADDER CYSTOURETHROSCOPY WITH INJECTION FOR CHEMODENERVATION OF THE BLADDER (BOTOX 200 UNITS) Encounter Details Care Team Description Date Type Department Cheyenne Yeh SRNA 02/08/2019 Anesthesia [facility] OR [address] [address] Anesthesia Record Responsible Anesthesiologist Anesthesia [...] Emergency Case Activation: No Associated attestation - Nader Jackson MD - 02/08/2019 2:22 PM CDT [...] pain COPD (chronic obstructive pulmonary disease) ([facility]) Depression DM (diabetes mellitus) (HCC) Dyslipidemia GERD [...] (200 UNITS) performed by Hermila gordillo MD CT CYSTOURETHROSCOPY INJ CHEMODENERVATION BLADDER N/A 09/16/2016 CYSTOSCOPY BOTOX INJECTIONS (200 UNITS) performed by Hermila Durbin MD at [facility] OR/Periop ABDOMINAL AORTIC ANEURYSM REPAIR, OPEN 2017 CT CYSTOURETHROSCOPY INJ CHEMODENERVATION BLADDER N/A 03/17/2017 CYSTOSCOPY WITH INTRAVESICAL BLADDER BOTOX INJECTIONS (200 UNITS) performed by Hermila Durbin MD at [facility] OR/Periop LEG AMPUTATION BELOW KNEE Right [...] 24 hours: Yes Hypertension, poorly controlled Past GA (Unsure of time line), > 6 months Coronary artery disease PTCA (Unsure how long ago): drug-eluting stent PVD (Recent AAA repair) Hyperlipidemia (taking a statin) Reports evaluated earlier this year by her sweatband decorating machine operator. GI/Hepatic/Renal GERD ( taking PPI), well controlled [...] Blood Consent: consented Plan discussed with: anesthesiologist, TANK WORKER and SRNA. Addendum: Cardiac cath report 02/2018 [...] Date Type Specialty Rishi Cartwright MD [address] Ortho/Med Pavilion L[address] [place] [address] [phone] Mixed urge and stress incontinence 08/12/2019 Hospital Encounter Rishi Cartwright MD [address] Ortho/Med Pavilion [address] [place] [address] [phone] CYSTOURETHROSCOPY WITH INJECTION FOR CHEMODENERVATION OF THE [...]
--- OUTSIDE RECORDS SUMMARY | 2019-06-14 16:12 | XMS REPORT | Encounter Summary ---
Author Author [facility] Organization [facility] Address Unknown Phone Unavailable Care Team Providers Care Credit Balance Specialist Name Role Phone Osvaldo Palafox Unavailable Hermila Durbin MD Unavailable Rishi Cartwright MD Unavailable Donell Haque PA-C Unavailable Lizet Parsons RN Unavailable Unavailable Kristofer Dowling MD Unavailable Unavailable Harvinder Jj MD PCP Slade Merino DO 4 Reason for Visit * Reason Comments Prior Authorization Encounter Details Care Team Description Date Type Department Hermila Durbin MD [address] Ortho/Med Pavilion [address] [place] [address] Prior Authorization 03/02/2019 Telephone [facility] [address] [place] [address] Social History Date Tobacco Use [...] 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 She will hear something back with [...] [facility] Ortho/Med Pavilion Lvl [address] [place] [address] [phone] Mixed urge and stress incontinence 08/12/2019 Hospital Encounter Rishi Cartwright MD [address] [facility]Med Pav[address] [place] [address] [phone] CYSTOURETHROSCOPY WITH INJECTION FOR CHEMODENERVATION OF THE BLADDER (BOTOX 200 UNITS) 08/12/2019 Surgery documented as of this encounter Visit Diagnoses Not on filedocumented in this encounter
--- OUTSIDE RECORDS SUMMARY | 2019-06-14 16:13 | XMS REPORT | Encounter Summary ---
Author Author [facility] Organization [facility] Address Unknown Phone Unavailable Care Team Providers Care Floor Nurse Name Role Phone Osvaldo Palafox DO Unavailable Hermila Durbin MD Unavailable Rishi Cartwright MD Unavailable Donell Haque PA-C Unavailable Lizet Parsons RN Unavailable Unavailable Kristofer Dowling MD Unavailable Unavailable Harvinder Jj MD PCP Slade Mreino DO 4 Reason for Visit * Auth/Cert Referred By Contact Referred To Contact Status Reason Specialty Diagnoses / Procedures Diagnoses Urge incontinence Urge incontinence [N39.41] P rocedures OR CYSTOURETHROSCOPY INJ CHEMODENERVATION BLADDER CYSTOURETHROSCOPY WITH INJECTION FOR CHEMODENERVATION OF THE BLADDER (BOTOX 200 UNITS) Encounter Details Care Team Description Date Type Department Hermila Durbin MD [address] Ortho/Med Pavilion Lvl [address] [place] [address] Urge incontinence 02/08/2019 Hospital [facility] OR [address] [address] Social History Date Tobacco Use [...] Kirti Olivas, RN - 01/19/2019 11:24 AM COLLAR SEPARATOR GENERAL INFORMATION Before you come to the hospital Make arrangements for a responsible adult to drive you home and stay with you for 24 hours following surgery. Bath/Shower Instructions {BATH/SHOWER INSTRUCTIONS:47054} Leave money, credit cards, jewelry, and any other valuables at home. The [facility] is not responsible for the loss or breakage of persona l items. Remove nail hong konger, makeup and all jewelry (including piercings) before comin g to the hospital. The morning of your procedure: brush your teeth and tongue do not smoke do not shave the area where you will have surgery What to bring to the hospital ID/ Insurance Card Softball Winder card Official documents for legal guardianship Copy of your Living Will, Advanced Directives, and/or Durable Power of Attorn ey Small bag with a few personal belongings {OTHER PERSONAL ITEMS:27388} Dress in clean, loose, comfortable clothing Eating or drinking before surgery {FOOD/DRINK:59867} Other instructions: Other instructions Notify your surgeon if: there is a possibility that you are you become ill with a cough, fever, sore throat, nausea, vomiting or flu-like symptoms you have any open wounds/sores that are red, painful, draining, or are new si nce you last saw the doctor you need to cancel your procedure {ARRIVAL TIME:} Notify us at {SURGERY CONTACT PHONE NUMBERS:57738} if you need to cancel your procedure if you are going to be late Arrival at the hospital AR SEPARATOR * Pre-Anesthesia Medication Instructions* Reji Vazquez, PHARMD - 01/20/2019 12:46 PM COLLAR SEPARATOR YOUR MEDICATIONS: albuterol (VENTOLIN HFA, PROAIR HFA) [...] any medicine updates o r questions. E-mail: [email or web address] Before going home from the hospital, please ask your doctor when you should re-s tart your medicines that were stopped before surgery. AR SEPARATOR documented in this encounter Medications at Time [...] Reji Vazquez, PHARMD - 01/20/2019 12:49 PM COLLAR SEPARATOR PAC Pharmacist Medication Plan Note: We were [...] patient who verbalized understanding. Reji Vazquez, ZAHIRA AR SEPARATOR * Kirti Olivas RN - 01/19/2019 11:30 AM COLLAR SEPARATOR PAC phone triage assessment completed with pt [...] understanding of instructions and declined a copy. AR SEPARATOR documented in this encounter H&P Notes * [...] 24 hours): POC Glucose (Download): 98 (02/08/19 4055) I have examined the patient, and there are no significant changes in their condi tion, from the previous H&P performed on 01/10/19. Maicol Marshall MD Pager [phone] ATTESTATION I personally performed the james portions of the E/M visit, discussed case with re sident and concur with resident documentation of history, physical exam, assessm ent, and treatment plan unless otherwise noted. Staff name: Hermila Durbin MD * Hermila Durbin MD - 01/10/2019 2:45 PM COLLAR SEPARATOR Date of Service: 01/10/2019 Subjective: History of [...] pulmonary disease) ([facility]) Depression DM (diabetes mellitus) ([facility]) Dyslipidemia GERD (gastroesophageal reflux disease) Hayfever HTN [...] (200 UNITS) performed by Hermila gordillo MD OR CYSTOURETHROSCOPY INJ CHEMODENERVATION BLADDER N/A 09/16/2016 CYSTOSCOPY BOTOX INJECTIONS (200 UNITS) performed by Hermila Durbin MD at [facility] OR/Periop ABDOMINAL AORTIC ANEURYSM REPAIR, OPEN 2017 OR CYSTOURETHROSCOPY INJ CHEMODENERVATION BLADDER N/A 03/17/2017 CYSTOSCOPY WITH INTRAVESICAL BLADDER BOTOX INJECTIONS (200 UNITS) performed by Hermila Durbin MD at [facility] OR/Periop LEG AMPUTATION BELOW KNEE Right 08/20/2018 RIGHT BELOW KNEE AMPUTATION performed by Pradip Jaramillo MD at [facility] OR/Periop INCISION AND DRAINAGE Right 10/15/2018 [...] otherwise noted. Staff name: Hermila Durbin MD AR SEPARATOR documented in this encounter Miscellaneous Notes * [...] Specimen(s) Removed/Disposition: none Maicol Marshall MD Pager [phone] ATTESTATION I performed this procedure with a resident. Staff name: Hermila Durbin MD documented in this encounter Plan of Treatment Care Team Description Date Type Specialty Rishi Cartwright MD [address] [facility] Ortho/Med Pavilion Lvl [address] [place] [address] [phone] Mixed urge and stress incontinence 08/12/2019 Hospital Encounter Rishi Cartwright MD [address] [facility] Ortho/Med Pavilion Lvl [address] [place] [address] [phone] CYSTOURETHROSCOPY WITH INJECTION FOR CHEMODENERVATION OF THE [...] MG/DL MAIN LAB Specimen Performing Organization Address [facility] Phone Number [facility] LAB [address] [place] [address] * POC GLUCOSE (02/08/2019 11:21 AM CDT) Glucose, POC 98 70 - 100 MG/DL MAIN LAB Specimen Performing Organization Address [facility] Phone Number [facility] LAB [address] [place] [address] * TELEMETRY STRIPS-SCAN (02/08/2019 12:00 AM CDT) [...]
--- OUTSIDE RECORDS SUMMARY | 2019-06-14 16:13 | XMS REPORT | Encounter Summary ---
Author Author [facility] Organization [facility] Address Unknown Phone Unavailable Care Team Providers Care Taxation Accountant Name Role Phone Osvaldo Palafox Unavailable Hermila Durbin MD Unavailable Rishi Cartwright MD Unavailable Donell Haque PA-C Unavailable Lizet Parsons RN Unavailable Unavailable Kristofer Dowling MD Unavailable Unavailable Harvinder Jj MD PCP Slade Merino DO 4 Reason for Visit * Reason Comments Incontinence Encounter Details Care Team Description Date Type Department Hermila Durbin MD [address] Ortho/Med Pavilion Lvl [address] [place] [address] Mixed urge and stress incontinence (TRI) (Primary Dx) 01/10/2019 Office Visit [facility] [address] [place] [address] Social History Date Tobacco Use [...] Comments Vital Sign 157/77 01/10/2019 3:19 PM DRY LUMBER GRADER Blood Pressure 83 01/10/2019 3:19 PM DRY LUMBER GRADER Pulse - - Temperature - - Respiratory Rate - - Oxygen Saturation - - Inhaled Oxygen Concentration 84.8 kg (187 lb) 01/10/2019 3:19 PM DRY LUMBER GRADER per pt Weight 170.2 cm (5' 7") 01/10/2019 3:19 PM DRY LUMBER GRADER Height 29.29 01/10/2019 3:19 PM DRY LUMBER GRADER Body Mass Index documented in this encounter [...] Instructions* Kelly Moser - 01/10/2019 2:45 PM DRY LUMBER GRADER [facility] - Urology Pre-Operative Instructions [...] such as ibuprofen (Advil, Motrin), naproxen (Aleve), [place], Excedrin, Midol, celecoxib (Celebrex), diclofenac ([place] micky), diflunisal, etodolac, flurbiprofen, indomethacin, ketoprofen, ketorolac, [...] questions, please contact your provider's office at [phone] . For emergencies during evenings, nights, weekends, and holidays, contact [facility] bottling machine operator and request they contact the on-call Urology Resident at [phone]. LUMBER GRADER documented in this encounter Progress Notes * Hermila Durbin MD - 01/10/2019 2:45 PM DRY LUMBER GRADER Date of Service: 01/10/2019 Subjective: History of [...] Chronic pain COPD (chronic obstructive pulmonary disease) ([facility]) Depression DM (diabetes mellitus) ([facility]) Dyslipidemia GERD (gastroesophageal reflux disease) Hayfever HTN (hypertension) Hypothyroidism IC (interstitial cystitis) Ischemic cardiomyopathy Mixed stress and urge urinary incontinence Myocardial infarction ([facility]) 2009 Neuropathy OAB (overactive bladder) On supplemental oxygen therapy 2L at night Seizure ([facility]) in high school Tobacco use [...] (200 UNITS) performed by Hermila gordillo MD AR CYSTOURETHROSCOPY INJ CHEMODENERVATION BLADDER N/A 09/16/2016 CYSTOSCOPY BOTOX INJECTIONS (200 UNITS) performed by Hermila Durbin MD at [facility] OR/Periop ABDOMINAL AORTIC ANEURYSM REPAIR, OPEN 2017 AR CYSTOURETHROSCOPY INJ CHEMODENERVATION BLADDER N/A 03/17/2017 CYSTOSCOPY WITH INTRAVESICAL BLADDER BOTOX INJECTIONS (200 UNITS) performed by Hermila Durbin MD at [facility] OR/Periop LEG AMPUTATION BELOW KNEE Right 08/20/2018 RIGHT BELOW KNEE AMPUTATION performed by Pradip Jaramillo MD at [facility] OR/Periop INCISION AND DRAINAGE Right 10/15/2018 INCISION AND DRAINAGE POSTOPERATIVE WOUND INFECTION RIGHT BELOW THE KNEE AMPUTA TION STUMP WITH APPLICATION OF WOUND VAC performed by Pradip Jaramillo MD at [facility] O R/Periop CARPAL TUNNEL RELEASE Bilateral unsure [...] otherwise noted. Staff name: Hermila Durbin MD LUMBER GRADER documented in this encounter Plan of Treatment Care Team Description Date Type Specialty Rishi Cartwright MD [address] [facility] Ortho/Med Pavilion Lvl [address] [place] [address] [phone] Mixed urge and stress incontinence 08/12/2019 Hospital Encounter Rishi Cartwright MD [address] Ortho/Med Pavilion L[address] [place] [address] [phone] CYSTOURETHROSCOPY WITH INJECTION FOR CHEMODENERVATION OF THE BLADDER (BOTOX 200 UNITS) 08/12/2019 Surgery documented as of this encounter Procedures Comments Procedure Name Priority Date/Time Associated Diagnosis POC URINE DIPSTICK MANUAL Routine 01/10/2019 Mixed urge and stress READ incontinence (TRI) documented in this encounter Results * CULTURE-URINE W/SENSITIVITY (01/10/2019 3:12 PM DRY LUMBER GRADER) Battery Name URINE CULTURE KU MAIN LAB Specimen URINE, CLEAN CATCH KU MAIN LAB Description Special NONE KU MAIN LAB Requests Culture 3 OR MORE ORGANISMS KU MAIN LAB PRESENT,INDICATING CONTAMINATION. PLEASE SUBMIT ANOTHER SPECIMEN. Report Status FINAL KU MAIN LAB 01/11/2019 Specimen Urine - Urine,Clean Catch Performing Organization Address City/State/Zipcode Phone Number MAIN LAB [address] [place] [address] * POC URINE DIPSTICK MANUAL READ (01/10/2019) Urine Glucose NEG IN CLINIC POC Urine Bilirubin NEG IN CLINIC POC Urine Ketone NEG IN CLINIC POC Urine Specific 1.030 IN CLINIC [place] POC Urine Blood POC NEG IN CLINIC [...] * Assessment & Plan Note - Ross Olosn MD - 01/10/2019 4:18 PM DRY LUMBER GRADER Associated Problem(s): Mixed urge and stress incontinence (TRI) 53 year old female with PMH of mixed incontinence managed with botox and oxybuty mia 10mg XL with return of symptoms Plan: - Schedule for botox 02/08/19 200U - Oxybutynin 10mg XL - Urine culture today - Empiric bactrim started LUMBER GRADER documented in this encounter
--- OUTSIDE RECORDS SUMMARY | 2019-06-14 16:13 | XMS REPORT | Encounter Summary ---
Author Author [facility] Organization [facility] Address Unknown Phone Unavailable Care Team Providers Care Gatekeeper Name Role Phone Osvaldo Palafox Unavailable Hermila Durbin MD Unavailable Rishi Cartwright MD Unavailable Donell Haque PA-C Unavailable Lizet Parsons RN Unavailable Unavailable Kristofer Dowling MD Unavailable Unavailable Harvinder Jj MD PCP Slade Merino DO 4 Reason for Visit * Reason Comments Medication Question Encounter Details Care Team Description Date Type Department Hermila Durbin MD [address] Ortho/Med Pavilion Lvl [address] [place] [address] Medication Question 01/11/2019 Telephone [facility] [address] [place] [address] Social History Date Tobacco Use [...] - Elena Henriquez - 01/11/2019 4:38 PM MANAGER GROUP HOME Pt called regarding her oxybutynin. She stated she has been taking 15 mg and her new prescription says 10 mg. She is concerned that the 15 mg wasn't even working for her so why is she taking the 10 mg, per pt. Please speak with MD Durbin regarding oxybutynin and call pt back if there needs to be a change. GER GROUP HOME documented in this encounter Plan of Treatment Care Team Description Date Type Specialty Rishi Cartwright MD [address] Ortho/Med Pavilion [address] [place] [address] [phone] Mixed urge and stress incontinence 08/12/2019 Hospital Encounter Rishi Cartwright MD [address] Ortho/Med Pavilion L[address] [place] [address] [phone] CYSTOURETHROSCOPY WITH INJECTION FOR CHEMODENERVATION OF THE BLADDER (BOTOX 200 UNITS) 08/12/2019 Surgery documented as of this encounter Visit Diagnoses Not on filedocumented in this encounter
--- OUTSIDE RECORDS SUMMARY | 2019-06-14 16:13 | XMS REPORT | Encounter Summary ---
Author Author [facility] Organization [facility] Address Unknown Phone Unavailable Care Team Providers Care Drafting Layout Worker Name Role Phone SarbjitmaryanneOsvaldo DO Unavailable Hermila Durbin MD Unavailable Rishi Cartwright MD Unavailable Donell Haque PA-C Unavailable Lizet Parsons RN Unavailable Unavailable Kristofer Dowling MD Unavailable Unavailable Harvinder Jj MD PCP Slade Merino DO 4 Encounter Details Care Team Description Date Type Department Ross MD [address] [place] [address] Urge incontinence (Primary Dx) 01/10/2019 Prep for Case The [facility] [address] [facility] [address] 2 [place] [address] Social History Date Tobacco Use [...] Date Type Specialty Rishi Cartwright MD [address] Ortho/Med Pavilion Lvl [address] [place] [address] [phone] Mixed urge and stress incontinence 08/12/2019 Hospital Encounter Rishi Cartwright MD [address] Ortho/Med Pavilion L[address] [place] [address] [phone] CYSTOURETHROSCOPY WITH INJECTION FOR CHEMODENERVATION OF THE BLADDER (BOTOX 200 UNITS) 08/12/2019 Surgery documented as of this encounter Visit Diagnoses Diagnosis Urge incontinence - Primary documented in this encounter
--- OUTSIDE RECORDS SUMMARY | 2019-06-14 16:13 | XMS REPORT | Encounter Summary ---
Author Author [facility] Organization [facility] Address Unknown Phone Unavailable Care Team Providers Care Pyrotechnic Assembler Name Role Phone AnaliaOsvaldo echols Unavailable Hermila Durbin MD Unavailable Rishi Cartwright MD Unavailable Donell Haque PA-C Unavailable Lizet Parsons RN Unavailable Unavailable Kristofer Dowling MD Unavailable Unavailable Harvinder Jj MD PCP Slade Merino DO 4 Reason for Visit * Reason Comments General Question Encounter Details Care Team Description Date Type Department Rishi Cartwright MD [address] Ortho/Med Pavilion L[address] [place] [address] General Question 01/14/2019 Telephone [facility] [address] [place] [address] Social History Date Tobacco Use [...] Simon Moreland MA - 01/14/2019 2:21 PM ROOFING FOREMAN Pt called, asking us to call her [...] deli vering it soon. Pt verbalized understanding. ING FOREMAN documented in this encounter Plan of Treatment Care Team Description Date Type Specialty Rishi Cartwright MD [address] [facility] Ortho/Med Pavilion Lvl [address] [place] [address] [phone] Mixed urge and stress incontinence 08/12/2019 Hospital Encounter Rishi Cartwright MD [address] [facility] Ortho/Med Pavilion Lvl [address] [place] [address] CYSTOURETHROSCOPY WITH INJECTION FOR CHEMODENERVATION OF THE BLADDER (BOTOX 200 UNITS) 08/12/2019 Surgery documented as of this encounter Visit Diagnoses Not on filedocumented in this encounter
--- OUTSIDE RECORDS SUMMARY | 2019-06-14 16:13 | XMS REPORT | Encounter Summary ---
Author Author [facility] Organization [facility] Address Unknown Phone Unavailable Care Team Providers Care Dermatology Nurse Name Role Phone Osvaldo Palafox Unavailable Hermila Durbin MD Unavailable Rishi Cartwright MD Unavailable Donell Haque PA-C Unavailable Lizet Parsons RN Unavailable Unavailable Kristofer Dowling MD Unavailable Unavailable Harvinder Jj MD PCP Slade Merino DO 4 Reason for Visit * Reason Comments Medication Question Encounter Details Care Team Description Date Type Department Hermila Durbin MD [address] Ortho/Med Pavilion L[address] [place] [address] Medication Question 01/12/2019 Telephone [facility] [address] [place] [address] Social History Date Tobacco Use [...] - Brefina Kelly - 01/14/2019 1:54 PM CANCER GENETICS ASSISTANT Patient is calling still having symptoms of [...] what else can I offer her ? ER GENETICS ASSISTANT * Telephone Encounter - Cece Frances - 01/12/2019 4:27 PM CANCER GENETICS ASSISTANT Pt called today because she wants to [...] dose is correct or not. Cece Real ER GENETICS ASSISTANT documented in this encounter Plan of Treatment Care Team Description Date Type Specialty Rishi Cartwright MD [address] Ortho/Med Pavilion [address] [place] [address] [phone] Mixed urge and stress incontinence 08/12/2019 Hospital Encounter Rishi Cartwright MD [address] Ortho/Med Pavilion [address] [place] [address] [phone] CYSTOURETHROSCOPY WITH INJECTION FOR CHEMODENERVATION OF THE BLADDER (BOTOX 200 UNITS) 08/12/2019 Surgery documented as of this encounter Visit Diagnoses Not on filedocumented in this encounter
--- OUTSIDE RECORDS SUMMARY | 2019-06-14 16:13 | XMS REPORT | Encounter Summary ---
Author Author [facility] Organization [facility] Address Unknown Phone Unavailable Care Team Providers Care Shrimper Name Role Phone SarbjitmaryanneOsvaldo DO Unavailable Hermila Durbin MD Unavailable Rishi Cartwright MD Unavailable Donell Haque PA-C Unavailable Lizet Parsons RN Unavailable Unavailable Kristofer Dowling MD Unavailable Unavailable Harvinder Jj MD PCP Slade Merino DO 4 Reason for Visit * Reason Comments Post Operative Visit right bka Encounter Details Care Team Description Date Type Department Pradip Jaramillo MD [address] [facility] Ortho/Med Pavilion [address] [place] [address] Postoperative wound dehiscence, subsequent encounter (Primary Dx) 12/21/2018 Office Visit [facility] [address] [place] [address] Social History Date Tobacco Use [...] 82.1 kg (181 lb) 12/21/2018 8:06 AM FISHER CRAB Weight 170.2 cm (5' 7") 12/21/2018 8:06 AM FISHER CRAB Height 28.35 12/21/2018 8:06 AM FISHER CRAB Body Mass Index documented in this encounter [...] of this encounter Progress Notes * Pradip Jaarmillo MD - 12/21/2018 8:15 AM FISHER CRAB She is here today for postoperative follow [...] have taken down these notes, Kendal Grossman. ER CRAB documented in this encounter Plan of Treatment Care Team Description Date Type Specialty Rishi Cartwright MD [address] Ortho/Med Pavilion [address] [place] [address] [phone] Mixed urge and stress incontinence 08/12/2019 Hospital Encounter Rishi Cartwright MD [address] Ortho/Med Pavilion [address] [place] [address] [phone] CYSTOURETHROSCOPY WITH INJECTION FOR CHEMODENERVATION OF THE BLADDER (BOTOX 200 UNITS) 08/12/2019 Surgery documented as of this encounter Visit Diagnoses Diagnosis Postoperative wound dehiscence, subsequent encounter - Primary documented in this encounter
--- OUTSIDE RECORDS SUMMARY | 2019-06-14 16:13 | XMS REPORT | Encounter Summary ---
Author Author [facility] Organization [facility] Address Unknown Phone Unavailable Care Team Providers Care Tin Plater Name Role Phone Osvaldo Palafox Unavailable Hermila Durbin MD Unavailable Rishi Cartwright MD Unavailable Donell Haque PA-C Unavailable Lizet Parsons RN Unavailable Unavailable Kristofer Dowling MD Unavailable Unavailable Harvinder Jj MD PCP Slade Merino DO 4 Encounter Details Care Team Description Date Type Department Hermila Durbin MD [address] Ortho/Med Pavilion L[address] [place] [address] [phone] Mixed incontinence 01/10/2019 [facility] [address] [address] Social History Date Tobacco Use Types Packs/Day [...] Date Type Specialty Rishi Cartwright MD [address] Ortho/Med Pavilion L[address] [place] [address] [phone] Mixed urge and stress incontinence 08/12/2019 Hospital Encounter Rishi Cartwright MD [address] Ortho/Med Pavilion [address] [place], [place] [address] CYSTOURETHROSCOPY WITH INJECTION FOR CHEMODENERVATION OF THE BLADDER (BOTOX 200 UNITS) 08/12/2019 Surgery documented as of this encounter Procedures Comments Procedure Name Priority Date/Time Associated Diagnosis CULTURE-URINE Routine 01/10/2019 Mixed urge and stress W/SENSITIVITY 3:12 PM APPLICATIONS PROGRAMMER incontinence (TRI) documented in this encounter Results * CULTURE-URINE W/SENSITIVITY (01/10/2019 3:12 PM APPLICATIONS PROGRAMMER) Battery Name URINE CULTURE KU MAIN LAB Specimen URINE, CLEAN CATCH KU MAIN LAB Description Special NONE MAIN LAB Requests Culture 3 OR MORE ORGANISMS KU MAIN LAB PRESENT,INDICATING CONTAMINATION. PLEASE SUBMIT ANOTHER SPECIMEN. Report Status FINAL MAIN LAB 01/11/2019 Specimen Urine - Urine,Clean Catch Performing Organization Address City/State/Zipcode Phone Number MAIN LAB [address] [place] [address] documented in this encounter Visit Diagnoses Diagnosis Mixed urge and stress incontinence (TRI) Mixed incontinence urge and stress (male)(female) documented in this encounter
[2019-06-14] MEDS: ACETAMINOPHEN 500 MG TAB (TYLENOL) PO PRN (16:16)
[2019-06-14] MEDS ORDERED: ALBU2.5V4 NEB (16:45)
--- NOTE | 2019-06-14 16:49 | NUR ---
UNABLE TO SPEAK WITH THE PATIENT AT THIS TIME. I UPDATED THE MED REC WITH THE EXT MED HX WELL REQUESTING A MEDICATION LIST FROM [facility] AT [facility] AND A LIST OF RECENTLY FILLED MEDS FROM [facility]. I CALLED AND LEFT A MESSAGE WITH DR. OSBORN'S OFFICE TO SEE WHAT BREATHING MEDICATIONS THE PATIENT IS TO BE TAKING AND IF SHE HAS RECEIVED ANY SAMPLES. I LEFT A MESSAGE WITH RAISA BRITO'S OFFICE AT TO CLARIFY THE TOVIAZ AND OXYBUTYNIN. THE LIST FROM [facility] DOES NOT HAVE ALL THE MEDICATIONS THAT HAVE BEEN FILLED RECENTLY AT [facility] ON THE LIST. GABAPENTIN IS ON THE LIST FROM THE [facility] 600MG HS HOWEVER IT WAS FILLED AT [facility] FOR 600MG TABLETS TAKE 2 TABS TWICE DAILY BY DR. ROSE ALMODOVAR. I WILL FOLLOW UP TOMORROW FOR MORE CLARIFICATION. Addendum: 06/15/19 at 1338 by ZIA MONROE [facility] DR. BRITO'S OFFICE CALLED BACK THIS MORNING AND VERIFIED THE PATIENT HAD BEEN ON OXYBUTYNIN THEN WAS PRESCRIBED MYRBETRIQ, THE MYRBETRIQ WAS NOT COVERED ON INSURANCE SO THEY PRESCRIBED TO TOVIAZ. SHE IS TO TAKE TOVIAZ ONLY AND NO LONGER TAKE OXYBUTYNIN. I REMOVED OXYBUTYNIN FROM THE LIST AT THIS TIME. I HAVE NOT RECEIVED A CALL BACK FROM DR. OSBORN'S OFFICE YET TO VERIFY THE INHALERS. I LEFT ANOTHER MESSAGE AT THIS TIME. Addendum: 06/15/19 at 1524 by ZIA MONROE business controller DR. OSBORN'S OFFICE CALLED ME BACK AT THIS TIME AND STATES THE PATIENT IS TAKING SYMBICORT AND SPIRIVA. IN ADDITION TO THE PROAIR. PAIGE LAST FILLED THE SYMBICORT AND SPIRIVA 03-29-19. I REMOVED THE ANORO AND COMBIVENT FROM THE MED REC AT THIS TIME.
--- NOTE | 2019-06-14 17:00 | NUR ---
Report called to Swati MATUTE. Patient transferred to ICU 9.
--- NOTE | 2019-06-14 17:33 | NUR ---
1705 PT TO ROOM ICU 9 VIA BED ACCOMPANIED BY 4TH FLOOR RN AND STAFF. PT DROWSY AWAKENS TO VERBAL STIMULI, PT ON 4 LITERS PER NC AND SA02 NOTED AT 91-92%. CALL LIGHT AND OTHER PERSONAL ITEMS WITHIN REACH 1715 THIS RN SPOKE TO DR OSBORN NEW ORDERS RECEIVED SEE ORDER HX.
--- OUTSIDE RECORDS SUMMARY | 2019-06-14 17:38 | XMS REPORT | Continuity of Care Document ---
[...] Drug Allergy N/A N/A 2014 Yes tramadol [id number] Drug Allergy Mild N/V 07/23/2018 Yes aspirin [id number] Drug Allergy Mild Nausea 07/30/2018 Yes codeine [id number] Drug Allergy Mild Nausea 07/30/2018 Yes Penicillins [id number] Drug Allergy Mild Hives 07/30/2018 Yes amlodipine besylate [id number] Drug Allergy Unknown N/A 07/30/2018 Yes benazepril HCl [id number] Drug Allergy Unknown N/A 07/30/2018 Yes Wfwiakt-Zxx-Iys Reductase Inhibitor [id number] Drug Allergy Unknown N/A 07/30/2018 Medications There [...] Type Ii - Uncomplicated, Uncontrolled 06/27/2008 MADL FLEET ASSISTANT, ETELVINA L 250.02 Diabetes Mellitus Type Ii - Uncomplicated, Uncontrolled 06/27/2008 MADL FLEET ASSISTANT, ETELVINA L 250.02 Diabetes Mellitus Type Ii - Uncomplicated, Uncontrolled 06/27/2008 MADL FLEET ASSISTANT, ETELVINA L 250.02 Diabetes Mellitus Type Ii - Uncomplicated, Uncontrolled 06/27/2008 SALGUERO DO LADONNA K 250.02 Diabetes Mellitus Type Ii - Uncomplicated, Uncontrolled 06/27/2008 SALGUERO DO LADONNA K 250.02 Diabetes Mellitus Type Ii - Uncomplicated, Uncontrolled 06/27/2008 MADL FLEET ASSISTANT, ETEVLINA L 250.02 Diabetes Mellitus Type Ii - Uncomplicated, Uncontrolled 06/27/2008 MADL FLEET ASSISTANT, ETELVINA L 250.02 Diabetes Mellitus Type Ii - Uncomplicated, Uncontrolled 06/27/2008 MADL FLEET ASSISTANT, ETEVLINA L 250.02 Diabetes Mellitus Type Ii - Uncomplicated, Uncontrolled 06/27/2008 MADL FLEET ASSISTANT, ETELVINA L 250.02 Diabetes Mellitus Type Ii - Uncomplicated, Uncontrolled 06/27/2008 MADL FLEET ASSISTANT, ETELVINA L 250.02 Diabetes Mellitus Type Ii - Uncomplicated, Uncontrolled 06/27/2008 MADL FLEET ASSISTANT, ETELVINA L 250.02 Diabetes Mellitus Type Ii - Uncomplicated, Uncontrolled 06/27/2008 MADL FLEET ASSISTANT, ETELVINA L 250.02 Diabetes Mellitus Type Ii - Uncomplicated, Uncontrolled 06/27/2008 SALGUERO DO, LADONNA K 250.02 Diabetes Mellitus Type Ii - Uncomplicated, Uncontrolled 06/27/2008 SALGUERO DO, LADONNA K 250.02 Diabetes Mellitus Type Ii - Uncomplicated, Uncontrolled 06/27/2008 MADL FLEET ASSISTANT, ETELVINA L 250.02 Diabetes Mellitus Type Ii - Uncomplicated, Uncontrolled 06/27/2008 SALGUERO DO, LADONNA K 250.02 Diabetes Mellitus Type Ii - Uncomplicated, Uncontrolled 06/27/2008 MADL FLEET ASSISTANT, ETELVINA L 250.02 Diabetes Mellitus Type Ii [...] K 401.1 ESSENTIAL HYPERTENSION BENIGN 09/27/2008 MADL FLEET ASSISTANT, ETELVINA L 250.00 DIABETES MELLITUS 09/27/2008 MADL FLEET ASSISTANT, ETELVINA L 401.1 ESSENTIAL HYPERTENSION BENIGN 09/27/2008 MADL FLEET ASSISTANT, ETELVINA L 250.00 DIABETES MELLITUS 09/27/2008 MADL FLEET ASSISTANT, ETELVINA L 401.1 ESSENTIAL HYPERTENSION BENIGN 09/27/2008 MADL FLEET ASSISTANT, ETELVINA L 250.00 DIABETES MELLITUS 09/27/2008 MADL FLEET ASSISTANT, ETELVINA L 401.1 ESSENTIAL HYPERTENSION BENIGN 09/27/2008 SALGUERO DO, LADONNA K 250.00 DIABETES MELLITUS 09/27/2008 SALGUERO DO, LADONNA K 401.1 ESSENTIAL HYPERTENSION BENIGN 09/27/2008 SALGUERO DO, LADONNA K 250.00 DIABETES MELLITUS 09/27/2008 SALGUERO DO, LADONNA K 401.1 ESSENTIAL HYPERTENSION BENIGN 09/27/2008 MADL FLEET ASSISTANT, ETELVINA L 250.00 DIABETES MELLITUS 09/27/2008 MADL FLEET ASSISTANT, ETELVINA L 401.1 ESSENTIAL HYPERTENSION BENIGN 09/27/2008 MADL FLEET ASSISTANT, ETELVINA L 250.00 DIABETES MELLITUS 09/27/2008 MADL FLEET ASSISTANT, ETELVINA L 401.1 ESSENTIAL HYPERTENSION BENIGN 09/27/2008 MADL FLEET ASSISTANT, ETELVINA L 250.00 DIABETES MELLITUS 09/27/2008 MADL FLEET ASSISTANT, ETELVINA L 401.1 ESSENTIAL HYPERTENSION BENIGN 09/27/2008 MADL FLEET ASSISTANT, ETELVINA L 250.00 DIABETES MELLITUS 09/27/2008 MADL FLEET ASSISTANT, ETELVINA L 401.1 ESSENTIAL HYPERTENSION BENIGN 09/27/2008 MADL FLEET ASSISTANT, ETELVINA L 250.00 DIABETES MELLITUS 09/27/2008 MADL FLEET ASSISTANT, ETELVINA L 401.1 ESSENTIAL HYPERTENSION BENIGN 09/27/2008 MADL FLEET ASSISTANT, ETELVINA L 250.00 DIABETES MELLITUS 09/27/2008 MADL FLEET ASSISTANT, ETELVINA L 401.1 ESSENTIAL HYPERTENSION BENIGN 09/27/2008 MADL FLEET ASSISTANT, ETELVINA L 250.00 DIABETES MELLITUS 09/27/2008 MADL FLEET ASSISTANT, ETELVINA L 401.1 ESSENTIAL HYPERTENSION BENIGN 09/27/2008 SALGUERO DO, LADONNA K 250.00 DIABETES MELLITUS 09/27/2008 SALGUERO DO, LADONNA K 401.1 ESSENTIAL HYPERTENSION BENIGN 09/27/2008 SALGUERO DO, LADONNA K 250.00 DIABETES MELLITUS 09/27/2008 SALGUERO DO, LADONNA K 401.1 ESSENTIAL HYPERTENSION BENIGN 09/27/2008 MADL FLEET ASSISTANT, ETELVINA L 250.00 DIABETES MELLITUS 09/27/2008 MADL FLEET ASSISTANT, ETELVINA L 401.1 ESSENTIAL HYPERTENSION BENIGN 09/27/2008 [...] In Joint Involving Lower Leg 11/01/2008 MADL FLEET ASSISTANT, ETELVINA L 719.46 Pain In Joint Involving Lower Leg 11/01/2008 MADL FLEET ASSISTANT, ETELVINA L 719.46 Pain In Joint Involving Lower Leg 11/01/2008 MADL FLEET ASSISTANT, ETELVINA L 719.46 Pain In Joint Involving Lower Leg 11/01/2008 LADONNA SALGUERO DO K 719.46 Pain In Joint Involving Lower Leg 11/01/2008 NOEMY DOLADONNA K 719.46 Pain In Joint Involving Lower Leg 11/01/2008 MADL FLEET ASSISTANT ETELVINA L 719.46 Pain In Joint Involving Lower Leg 11/01/2008 MADL FLEET ASSISTANT, ETELVINA L 719.46 Pain In Joint Involving Lower Leg 11/01/2008 MADL FLEET ASSISTANT, ETELVINA L 719.46 Pain In Joint Involving Lower Leg 11/01/2008 MADL FLEET ASSISTANT, ETELVINA L 719.46 Pain In Joint Involving Lower Leg 11/01/2008 MADL FLEET ASSISTANT ETELVINA L 719.46 Pain In Joint Involving Lower Leg 11/01/2008 MADL FLEET ASSISTANT, ETELVINA L 719.46 Pain In Joint Involving Lower Leg 11/01/2008 MADL FLEET ASSISTANT, ETELVINA L 719.46 Pain In Joint Involving Lower Leg 11/01/2008 LADONNA SALGUERO DO K 719.46 Pain In Joint Involving Lower Leg 11/01/2008 NOEMY DOLADONNA K 719.46 Pain In Joint Involving Lower Leg 11/01/2008 MADL FLEET ASSISTANT, ETELVINA L 719.46 Pain In Joint Involving Lower Leg 11/01/2008 LADONNA SALGUERO DO K 719.46 Pain In Joint Involving Lower Leg 11/01/2008 MADL FLEET ASSISTANT, ETELVINA L 719.46 Pain In Joint Involving [...] K 728.85 Spasm Of Muscle 12/12/2008 MADL FLEET ASSISTANT, ETELVINA L 496 CHRONIC OBSTRUCTIVE PULMONARY DISEASE 12/12/2008 MADL FLEET ASSISTANT, ETELVINA L 728.85 Spasm Of Muscle 12/12/2008 MADL FLEET ASSISTANT, ETELVINA L 496 CHRONIC OBSTRUCTIVE PULMONARY DISEASE 12/12/2008 MADL FLEET ASSISTANT, ETELVINA L 728.85 Spasm Of Muscle 12/12/2008 MADL FLEET ASSISTANT, ETELVINA L 496 CHRONIC OBSTRUCTIVE PULMONARY DISEASE 12/12/2008 MADL FLEET ASSISTANT, ETELVINA L 728.85 Spasm Of Muscle 12/12/2008 SALGUERO DO, LADONNA K 496 CHRONIC OBSTRUCTIVE PULMONARY DISEASE 12/12/2008 SALGUERO DO, LADONNA K 728.85 Spasm Of Muscle 12/12/2008 SALGUERO DO, LADONNA K 496 CHRONIC OBSTRUCTIVE PULMONARY DISEASE 12/12/2008 SALGUERO DO, LADONNA K 728.85 Spasm Of Muscle 12/12/2008 MADL FLEET ASSISTANT, ETELVINA L 496 CHRONIC OBSTRUCTIVE PULMONARY DISEASE 12/12/2008 MADL FLEET ASSISTANT, ETELVINA L 728.85 Spasm Of Muscle 12/12/2008 MADL FLEET ASSISTANT, ETELVINA L 496 CHRONIC OBSTRUCTIVE PULMONARY DISEASE 12/12/2008 MADL FLEET ASSISTANT, ETELVINA L 728.85 Spasm Of Muscle 12/12/2008 MADL FLEET ASSISTANT, ETELVINA L 496 CHRONIC OBSTRUCTIVE PULMONARY DISEASE 12/12/2008 MADL FLEET ASSISTANT, ETELIVNA L 728.85 Spasm Of Muscle 12/12/2008 MADL FLEET ASSISTANT, ETELVINA L 496 CHRONIC OBSTRUCTIVE PULMONARY DISEASE 12/12/2008 MADL FLEET ASSISTANT, ETELVINA L 728.85 Spasm Of Muscle 12/12/2008 MADL FLEET ASSISTANT, ETELVINA L 496 CHRONIC OBSTRUCTIVE PULMONARY DISEASE 12/12/2008 MADL FLEET ASSISTANT, ETELVINA L 728.85 Spasm Of Muscle 12/12/2008 MADL FLEET ASSISTANT, ETELVINA L 496 CHRONIC OBSTRUCTIVE PULMONARY DISEASE 12/12/2008 MADL FLEET ASSISTANT, ETELVINA L 728.85 Spasm Of Muscle 12/12/2008 MADL FLEET ASSISTANT, ETELVINA L 496 CHRONIC OBSTRUCTIVE PULMONARY DISEASE 12/12/2008 MADL FLEET ASSISTANT, ETELVINA L 728.85 Spasm Of Muscle 12/12/2008 SALGUERO DO, LADONNA K 496 CHRONIC OBSTRUCTIVE PULMONARY DISEASE 12/12/2008 SALGUERO DO, LADONNA K 728.85 Spasm Of Muscle 12/12/2008 SALGUERO DO, LADONNA K 496 CHRONIC OBSTRUCTIVE PULMONARY DISEASE 12/12/2008 SALGUERO DO, LADONNA K 728.85 Spasm Of Muscle 12/12/2008 MADL FLEET ASSISTANT, ETELVINA L 496 CHRONIC OBSTRUCTIVE PULMONARY DISEASE 12/12/2008 MADL FLEET ASSISTANT, ETELVINA L 728.85 Spasm Of Muscle 12/12/2008 SALGUERO DO, LADONNA K 496 CHRONIC OBSTRUCTIVE PULMONARY DISEASE 12/12/2008 SALGUERO DO, LADONNA K 728.85 Spasm Of Muscle 12/12/2008 MADL FLEET ASSISTANT, ETELVINA L 496 CHRONIC OBSTRUCTIVE PULMONARY DISEASE 12/12/2008 MADL FLEET ASSISTANT, ETELVINA L 728.85 Spasm Of Muscle 01/11/2009 [...] 786.50 Chest Pain Or Discomfort 01/11/2009 MADL FLEET ASSISTANT, ETELVINA L 786.50 Chest Pain Or Discomfort 01/11/2009 MADL FLEET ASSISTANT, ETELVINA L 786.50 Chest Pain Or Discomfort 01/11/2009 MADL FLEET ASSISTANT, ETELVINA L 786.50 Chest Pain Or Discomfort 01/11/2009 SALGUERO DO, LADONNA K 786.50 Chest Pain Or Discomfort 01/11/2009 SALGUERO DO, LADONNA K 786.50 Chest Pain Or Discomfort 01/11/2009 MADL FLEET ASSISTANT, ETELVINA L 786.50 Chest Pain Or Discomfort 01/11/2009 MADL FLEET ASSISTANT, ETELVINA L 786.50 Chest Pain Or Discomfort 01/11/2009 MADL FLEET ASSISTANT, ETELVINA L 786.50 Chest Pain Or Discomfort 01/11/2009 MADL FLEET ASSISTANT, ETELVINA L 786.50 Chest Pain Or Discomfort 01/11/2009 MADL FLEET ASSISTANT, ETELVINA L 786.50 Chest Pain Or Discomfort 01/11/2009 MADL FLEET ASSISTANT, ETELVINA L 786.50 Chest Pain Or Discomfort 01/11/2009 MADL FLEET ASSISTANT, ETELVINA L 786.50 Chest Pain Or Discomfort 01/11/2009 SALGUERO DO, LADONNA K 786.50 Chest Pain Or Discomfort 01/11/2009 SALGUERO DO, LADONNA K 786.50 Chest Pain Or Discomfort 01/11/2009 MADL FLEET ASSISTANT, ETELVINA L 786.50 Chest Pain Or Discomfort 01/11/2009 SALGUERO DO, LADONNA K 786.50 Chest Pain Or Discomfort 01/11/2009 MADL FLEET ASSISTANT, ETELVINA L 786.50 Chest Pain Or Discomfort 02/20/2009 MORGAN FLEET ASSISTANT, LAURIE S 709.9 Dermatology - Skin Condition 02/20/2009 709.9 Dermatology - Skin Condition 02/20/2009 MORGAN FLEET ASSISTANT, LAURIE S 709.9 Dermatology - Skin Condition 02/20/2009 MORGAN FLEET ASSISTANT, LAURIE S 709.9 Dermatology - Skin Condition [...] 709.9 Dermatology - Skin Condition 02/20/2009 MADL FLEET ASSISTANT, ETELVINA L 709.9 Dermatology - Skin Condition 02/20/2009 MADL FLEET ASSISTANT, ETELVINA L 709.9 Dermatology - Skin Condition 02/20/2009 MADL FLEET ASSISTANT, ETELVINA L 709.9 Dermatology - Skin Condition 02/20/2009 SALGUERO DO, LADONNA K 709.9 Dermatology - Skin Condition 02/20/2009 SALGUERO DO, LADONNA K 709.9 Dermatology - Skin Condition 02/20/2009 MADL FLEET ASSISTANT, ETELVINA L 709.9 Dermatology - Skin Condition 02/20/2009 MADL FLEET ASSISTANT, ETELVINA L 709.9 Dermatology - Skin Condition 02/20/2009 MADL FLEET ASSISTANT, ETELVINA L 709.9 Dermatology - Skin Condition 02/20/2009 MADL FLEET ASSISTANT, ETELVINA L 709.9 Dermatology - Skin Condition 02/20/2009 MADL FLEET ASSISTANT, ETELVINA L 709.9 Dermatology - Skin Condition 02/20/2009 MADL FLEET ASSISTANT, ETELVINA L 709.9 Dermatology - Skin Condition 02/20/2009 MADL FLEET ASSISTANT, ETELVINA L 709.9 Dermatology - Skin Condition 02/20/2009 SALGUERO DO, LADONNA K 709.9 Dermatology - Skin Condition 02/20/2009 SALGUERO DO, LADONNA K 709.9 Dermatology - Skin Condition 02/20/2009 MADL FLEET ASSISTANT, ETELVINA L 709.9 Dermatology - Skin Condition 02/20/2009 SALGUERO DO, LADONNA K 709.9 Dermatology - Skin Condition 02/20/2009 MADL FLEET ASSISTANT, ETELVINA L 709.9 Dermatology - Skin Condition [...] Disorders Of Function Of Stomach 04/05/2009 MADL FLEET ASSISTANT, ETELVINA L 536.8 Dyspepsia And Other Specified Disorders Of Function Of Stomach 04/05/2009 MADL FLEET ASSISTANT, ETELVINA L 536.8 Dyspepsia And Other Specified Disorders Of Function Of Stomach 04/05/2009 MADL FLEET ASSISTANT, ETELVINA L 536.8 Dyspepsia And Other Specified Disorders Of Function Of Stomach 04/05/2009 SALGUERO DO, LADONNA K 536.8 Dyspepsia And Other Specified Disorders Of Function Of Stomach 04/05/2009 SALGUERO DO, LADONNA K 536.8 Dyspepsia And Other Specified Disorders Of Function Of Stomach 04/05/2009 MADL FLEET ASSISTANT, ETELVINA L 536.8 Dyspepsia And Other Specified Disorders Of Function Of Stomach 04/05/2009 MADL FLEET ASSISTANT, ETELVINA L 536.8 Dyspepsia And Other Specified Disorders Of Function Of Stomach 04/05/2009 MADL FLEET ASSISTANT, ETELVINA L 536.8 Dyspepsia And Other Specified Disorders Of Function Of Stomach 04/05/2009 MADL FLEET ASSISTANT, ETELVINA L 536.8 Dyspepsia And Other Specified Disorders Of Function Of Stomach 04/05/2009 MADL FLEET ASSISTANT, ETELVINA L 536.8 Dyspepsia And Other Specified Disorders Of Function Of Stomach 04/05/2009 MADL FLEET ASSISTANT, ETELVINA L 536.8 Dyspepsia And Other Specified Disorders Of Function Of Stomach 04/05/2009 MADL FLEET ASSISTANT, ETELVINA L 536.8 Dyspepsia And Other Specified Disorders Of Function Of Stomach 04/05/2009 SALGUERO DO, LADONNA K 536.8 Dyspepsia And Other Specified Disorders Of Function Of Stomach 04/05/2009 SALGUERO DO, LADONNA K 536.8 Dyspepsia And Other Specified Disorders Of Function Of Stomach 04/05/2009 MADL FLEET ASSISTANT, ETELVINA L 536.8 Dyspepsia And Other Specified Disorders Of Function Of Stomach 04/05/2009 SALGUERO DO, LADONNA K 536.8 Dyspepsia And Other Specified Disorders Of Function Of Stomach 04/05/2009 MADL FLEET ASSISTANT, ETELVINA L 536.8 Dyspepsia And Other Specified [...] K 327.52 Organic Sleep-related Leg Cramps 05/09/2009 ASLGUERO DO, LADONNA K 787.02 Nausea 05/09/2009 MADL FLEET ASSISTANT, ETELVINA L 327.52 Organic Sleep-related Leg Cramps 05/09/2009 MADL FLEET ASSISTANT, ETELVINA L 787.02 Nausea 05/09/2009 MADL FLEET ASSISTANT, ETELVINA L 327.52 Organic Sleep-related Leg Cramps 05/09/2009 MADL FLEET ASSISTANT, ETELVINA L 787.02 Nausea 05/09/2009 MADL FLEET ASSISTANT, ETELVINA L 327.52 Organic Sleep-related Leg Cramps 05/09/2009 MADL FLEET ASSISTANT, ETELVINA L 787.02 Nausea 05/09/2009 SALGUERO DO, LADONNA K 327.52 Organic Sleep-related Leg Cramps 05/09/2009 SALGUERO DO, LADONNA K 787.02 Nausea 05/09/2009 SALGUERO DO, LADONNA K 327.52 Organic Sleep-related Leg Cramps 05/09/2009 SALGUERO DO, LADONNA K 787.02 Nausea 05/09/2009 MADL FLEET ASSISTANT, ETELVINA L 327.52 Organic Sleep-related Leg Cramps 05/09/2009 MADL FLEET ASSISTANT, ETELVINA L 787.02 Nausea 05/09/2009 MADL FLEET ASSISTANT, ETELVINA L 327.52 Organic Sleep-related Leg Cramps 05/09/2009 MADL FLEET ASSISTANT, ETELVINA L 787.02 Nausea 05/09/2009 MADL FLEET ASSISTANT, ETELVINA L 327.52 Organic Sleep-related Leg Cramps 05/09/2009 MADL FLEET ASSISTANT, ETELVINA L 787.02 Nausea 05/09/2009 MADL FLEET ASSISTANT, ETELVINA L 327.52 Organic Sleep-related Leg Cramps 05/09/2009 MADL FLEET ASSISTANT, ETELVINA L 787.02 Nausea 05/09/2009 MADL FLEET ASSISTANT, ETELVINA L 327.52 Organic Sleep-related Leg Cramps 05/09/2009 MADL FLEET ASSISTANT, ETELVINA L 787.02 Nausea 05/09/2009 MADL FLEET ASSISTANT, ETELVINA L 327.52 Organic Sleep-related Leg Cramps 05/09/2009 MADL FLEET ASSISTANT, ETELVINA L 787.02 Nausea 05/09/2009 MADL FLEET ASSISTANT, ETELVINA L 327.52 Organic Sleep-related Leg Cramps 05/09/2009 MADL FLEET ASSISTANT, ETELVINA L 787.02 Nausea 05/09/2009 SALGUERO DO, LADONNA K 327.52 Organic Sleep-related Leg Cramps 05/09/2009 SALGUERO DO, LADONNA K 787.02 Nausea 05/09/2009 SALGUERO DO, LADONNA K 327.52 Organic Sleep-related Leg Cramps 05/09/2009 SALGUERO DO, LADONNA K 787.02 Nausea 05/09/2009 MADL FLEET ASSISTANT, ETELVINA L 327.52 Organic Sleep-related Leg Cramps 05/09/2009 MADL FLEET ASSISTANT, ETELVINA L 787.02 Nausea 05/09/2009 SALGUERO DO, LADONNA K 327.52 Organic Sleep-related Leg Cramps 05/09/2009 SALGUERO DO, LADONNA K 787.02 Nausea 05/09/2009 MADL FLEET ASSISTANT, ETELVINA L 327.52 Organic Sleep-related Leg Cramps 05/09/2009 MADL FLEET ASSISTANT, ETELVINA L 787.02 Nausea 07/02/2009 LAURIE MORA [...] Respiratory Infections Of Unspecified Site 07/02/2009 MORGAN FLEET ASSISTANT, LAURIE S 780.4 Dizziness And Giddiness 07/02/2009 ROMELIA FISCHER MD 465.9 Acute Upper Respiratory Infections Of Unspecified Site 07/02/2009 ROMELIA IFSCHER MD 780.4 Dizziness And Giddiness 07/02/2009 BYRON [...] K 780.4 Dizziness And Giddiness 07/02/2009 MADL FLEET ASSISTANT, ETELVINA L 465.9 Acute Upper Respiratory Infections Of Unspecified Site 07/02/2009 MADL FLEET ASSISTANT, ETELVINA L 780.4 Dizziness And Giddiness 07/02/2009 MADL FLEET ASSISTANT, ETELVINA L 465.9 Acute Upper Respiratory Infections Of Unspecified Site 07/02/2009 MADL FLEET ASSISTANT, ETELVINA L 780.4 Dizziness And Giddiness 07/02/2009 MADL FLEET ASSISTANT, ETELVINA L 465.9 Acute Upper Respiratory Infections Of Unspecified Site 07/02/2009 MADL FLEET ASSISTANT, ETELVINA L 780.4 Dizziness And Giddiness 07/02/2009 SALGUERO DO, LADONNA K 465.9 Acute Upper Respiratory Infections Of Unspecified Site 07/02/2009 SALGUERO DO, LADONNA K 780.4 Dizziness And Giddiness 07/02/2009 SALGUERO DO, LADONNA K 465.9 Acute Upper Respiratory Infections Of Unspecified Site 07/02/2009 SALGUERO DO, LADONNA K 780.4 Dizziness And Giddiness 07/02/2009 MADL FLEET ASSISTANT, ETELVINA L 465.9 Acute Upper Respiratory Infections Of Unspecified Site 07/02/2009 MADL FLEET ASSISTANT, ETELVINA L 780.4 Dizziness And Giddiness 07/02/2009 MADL FLEET ASSISTANT, ETELVINA L 465.9 Acute Upper Respiratory Infections Of Unspecified Site 07/02/2009 MADL FLEET ASSISTANT, ETELVINA L 780.4 Dizziness And Giddiness 07/02/2009 MADL FLEET ASSISTANT, ETELVINA L 465.9 Acute Upper Respiratory Infections Of Unspecified Site 07/02/2009 MADL FLEET ASSISTANT, ETELVINA L 780.4 Dizziness And Giddiness 07/02/2009 MADL FLEET ASSISTANT, ETELVINA L 465.9 Acute Upper Respiratory Infections Of Unspecified Site 07/02/2009 MADL FLEET ASSISTANT, ETELVINA L 780.4 Dizziness And Giddiness 07/02/2009 MADL FLEET ASSISTANT, ETELVINA L 465.9 Acute Upper Respiratory Infections Of Unspecified Site 07/02/2009 MADL FLEET ASSISTANT, ETELVINA L 780.4 Dizziness And Giddiness 07/02/2009 MADL FLEET ASSISTANT, ETELVINA L 465.9 Acute Upper Respiratory Infections Of Unspecified Site 07/02/2009 MADL FLEET ASSISTANT, ETELVINA L 780.4 Dizziness And Giddiness 07/02/2009 MADL FLEET ASSISTANT, ETELVINA L 465.9 Acute Upper Respiratory Infections Of Unspecified Site 07/02/2009 MADL FLEET ASSISTANT, ETELVINA L 780.4 Dizziness And Giddiness 07/02/2009 SALGUERO DO, LADONNA K 465.9 Acute Upper Respiratory Infections Of Unspecified Site 07/02/2009 SALGUERO DO, LADONNA K 780.4 Dizziness And Giddiness 07/02/2009 SALGUERO DO, LADONNA K 465.9 Acute Upper Respiratory Infections Of Unspecified Site 07/02/2009 SALGUERO DO, LADONNA K 780.4 Dizziness And Giddiness 07/02/2009 MADL FLEET ASSISTANT, ETELVINA L 465.9 Acute Upper Respiratory Infections Of Unspecified Site 07/02/2009 MADL FLEET ASSISTANT, ETELVINA L 780.4 Dizziness And Giddiness 07/02/2009 SALGUERO DO, LADONNA K 465.9 Acute Upper Respiratory Infections Of Unspecified Site 07/02/2009 SALGUERO DO, LADONNA K 780.4 Dizziness And Giddiness 07/02/2009 MADL FLEET ASSISTANT, ETELVINA L 465.9 Acute Upper Respiratory Infections Of Unspecified Site 07/02/2009 MADL FLEET ASSISTANT, ETELVINA L 780.4 Dizziness And Giddiness 08/10/2009 MORGANLAURIE GUADARRAMA APRN S 780.52 INSOMNIA UNSPECIFIED 08/10/2009 MORGAN FLEET ASSISTANT, LAURIE S 783.1 Abnormal Weight Gain 08/10/2009 780.52 Insomnia Unspecified 08/10/2009 783.1 Abnormal Weight Gain 08/10/2009 MORGAN HARRIS LAURIE S 780.52 Insomnia Unspecified 08/10/2009 MORGAN FLEET ASSISTANT, LAURIE S 783.1 Abnormal Weight Gain 08/10/2009 [...] K 783.1 Abnormal Weight Gain 08/10/2009 MADL FLEET ASSISTANT, ETELVINA L 780.52 Insomnia Unspecified 08/10/2009 MADL FLEET ASSISTANT, ETELVINA L 783.1 Abnormal Weight Gain 08/10/2009 MADL FLEET ASSISTANT, ETELVINA L 780.52 Insomnia Unspecified 08/10/2009 MADL FLEET ASSISTANT, ETELVINA L 783.1 Abnormal Weight Gain 08/10/2009 MADL FLEET ASSISTANT, ETELVINA L 780.52 Insomnia Unspecified 08/10/2009 MADL FLEET ASSISTANT, ETELVINA L 783.1 Abnormal Weight Gain 08/10/2009 SALGUERO DO, LADONNA K 780.52 Insomnia Unspecified 08/10/2009 SALGUERO DO, LADONNA K 783.1 Abnormal Weight Gain 08/10/2009 SALGUERO DO, LADONNA K 780.52 Insomnia Unspecified 08/10/2009 SALGUERO DO, LADONNA K 783.1 Abnormal Weight Gain 08/10/2009 MADL FLEET ASSISTANT, ETELVINA L 780.52 Insomnia Unspecified 08/10/2009 MADL FLEET ASSISTANT, ETELVINA L 783.1 Abnormal Weight Gain 08/10/2009 MADL FLEET ASSISTANT, ETELVINA L 780.52 Insomnia Unspecified 08/10/2009 MADL FLEET ASSISTANT, ETELVINA L 783.1 Abnormal Weight Gain 08/10/2009 MADL FLEET ASSISTANT, ETELVINA L 780.52 Insomnia Unspecified 08/10/2009 MADL FLEET ASSISTANT, ETELVINA L 783.1 Abnormal Weight Gain 08/10/2009 MADL FLEET ASSISTANT, ETELVINA L 780.52 Insomnia Unspecified 08/10/2009 MADL FLEET ASSISTANT, ETELVINA L 783.1 Abnormal Weight Gain 08/10/2009 MADL FLEET ASSISTANT, ETELVINA L 780.52 Insomnia Unspecified 08/10/2009 MADL FLEET ASSISTANT, ETELVINA L 783.1 Abnormal Weight Gain 08/10/2009 MADL FLEET ASSISTANT, ETELVINA L 780.52 Insomnia Unspecified 08/10/2009 MADL FLEET ASSISTANT, ETELVINA L 783.1 Abnormal Weight Gain 08/10/2009 MADL FLEET ASSISTANT, ETELVINA L 780.52 Insomnia Unspecified 08/10/2009 MADL FLEET ASSISTANT, ETELVINA L 783.1 Abnormal Weight Gain 08/10/2009 SALGUERO DO, LADONNA K 780.52 Insomnia Unspecified 08/10/2009 SALGUERO DO, LADONNA K 783.1 Abnormal Weight Gain 08/10/2009 SALGUERO DO, LADONNA K 780.52 Insomnia Unspecified 08/10/2009 SALGUERO DO, LADONNA K 783.1 Abnormal Weight Gain 08/10/2009 MADL FLEET ASSISTANT, ETELVINA L 780.52 Insomnia Unspecified 08/10/2009 MADL FLEET ASSISTANT, ETELVINA L 783.1 Abnormal Weight Gain 08/10/2009 SALGUERO DO, LADONNA K 780.52 Insomnia Unspecified 08/10/2009 SALGUERO DO, LADONNA K 783.1 Abnormal Weight Gain 08/10/2009 MADL FLEET ASSISTANT, ETELVINA L 780.52 Insomnia Unspecified 08/10/2009 MADL FLEET ASSISTANT, ETELVINA L 783.1 Abnormal Weight Gain 09/04/2009 MORGAN HARRIS LAURIE S 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 09/04/2009 MORGAN HARRIS LAURIE S 780.79 Feelings Of Weakness 09/04/2009 MORGAN HARRIS LAURIE S 786.05 shortness of breath 09/04/2009 PALOMA MORA APRNNDA S 786.2 Cough 09/04/2009 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 09/04/2009 780.79 Feelings Of Weakness 09/04/2009 786.05 Shortness Of Breath 09/04/2009 786.2 Cough 09/04/2009 MORGAN FLEET ASSISTANT, LAURIE S 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 09/04/2009 MORGAN FLEET ASSISTANT, LAURIE S 780.79 Feelings Of Weakness 09/04/2009 MORGAN FLEET ASSISTANT, LAURIE S 786.05 Shortness Of Breath 09/04/2009 MORGAN FLEET ASSISTANT LAURIE S 786.2 Cough 09/04/2009 MORGAN FLEET ASSISTANT, LAURIE S 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 09/04/2009 MORGAN FLEET ASSISTANT, LAURIE S 780.79 Feelings Of Weakness 09/04/2009 MORGAN FLEET ASSISTANT, LAURIE S 786.05 Shortness Of Breath 09/04/2009 [...] DO, LADONNA K 786.2 Cough 09/04/2009 MADL FLEET ASSISTANT, ETELVINA L 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 09/04/2009 MADL FLEET ASSISTANT, ETELVINA L 780.79 Feelings Of Weakness 09/04/2009 MADL FLEET ASSISTANT, ETELVINA L 786.05 Shortness Of Breath 09/04/2009 MADL FLEET ASSISTANT, ETELVINA L 786.2 Cough 09/04/2009 MADL FLEET ASSISTANT, ETELVINA L 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 09/04/2009 MADL FLEET ASSISTANT, ETELVINA L 780.79 Feelings Of Weakness 09/04/2009 MADL FLEET ASSISTANT, ETELVINA L 786.05 Shortness Of Breath 09/04/2009 MADL FLEET ASSISTANT, ETELVINA L 786.2 Cough 09/04/2009 MADL FLEET ASSISTANT, ETELVINA L 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 09/04/2009 MADL FLEET ASSISTANT, ETELVINA L 780.79 Feelings Of Weakness 09/04/2009 MADL FLEET ASSISTANT, ETELVINA L 786.05 Shortness Of Breath 09/04/2009 MADL FLEET ASSISTANT, ETELVINA L 786.2 Cough 09/04/2009 SALGUERO DO, [...] DO, LADONNA K 786.2 Cough 09/04/2009 MADL FLEET ASSISTANT, ETELVINA L 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 09/04/2009 MADL FLEET ASSISTANT, ETELVINA L 780.79 Feelings Of Weakness 09/04/2009 MADL FLEET ASSISTANT, ETELVINA L 786.05 Shortness Of Breath 09/04/2009 MADL FLEET ASSISTANT, ETELVINA L 786.2 Cough 09/04/2009 MADL FLEET ASSISTANT, ETELVINA L 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 09/04/2009 MADL FLEET ASSISTANT, ETELVINA L 780.79 Feelings Of Weakness 09/04/2009 MADL FLEET ASSISTANT, ETELVINA L 786.05 Shortness Of Breath 09/04/2009 MADL FLEET ASSISTANT, ETELVINA L 786.2 Cough 09/04/2009 MADL FLEET ASSISTANT, ETELVINA L 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 09/04/2009 MADL FLEET ASSISTANT, ETELVINA L 780.79 Feelings Of Weakness 09/04/2009 MADL FLEET ASSISTANT, ETELVINA L 786.05 Shortness Of Breath 09/04/2009 MADL FLEET ASSISTANT, ETELVINA L 786.2 Cough 09/04/2009 MADL FLEET ASSISTANT, ETELVINA L 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 09/04/2009 MADL FLEET ASSISTANT, ETELVINA L 780.79 Feelings Of Weakness 09/04/2009 MADL FLEET ASSISTANT, ETELVINA L 786.05 Shortness Of Breath 09/04/2009 MADL FLEET ASSISTANT, ETELVINA L 786.2 Cough 09/04/2009 MADL FLEET ASSISTANT, ETELVINA L 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 09/04/2009 MADL FLEET ASSISTANT, ETELVINA L 780.79 Feelings Of Weakness 09/04/2009 MADL FLEET ASSISTANT, ETELVINA L 786.05 Shortness Of Breath 09/04/2009 MADL FLEET ASSISTANT, ETELVINA L 786.2 Cough 09/04/2009 MADL FLEET ASSISTANT, ETELVINA L 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 09/04/2009 MADL FLEET ASSISTANT, ETELVINA L 780.79 Feelings Of Weakness 09/04/2009 MADL FLEET ASSISTANT, ETELVINA L 786.05 Shortness Of Breath 09/04/2009 MADL FLEET ASSISTANT, ETELVINA L 786.2 Cough 09/04/2009 MADL FLEET ASSISTANT, ETELVINA L 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 09/04/2009 MADL FLEET ASSISTANT, ETELVINA L 780.79 Feelings Of Weakness 09/04/2009 MADL FLEET ASSISTANT, ETELVINA L 786.05 Shortness Of Breath 09/04/2009 MADL FLEET ASSISTANT, ETELVINA L 786.2 Cough 09/04/2009 SALGUERO DO, [...] DO, LADONNA K 786.2 Cough 09/04/2009 MADL FLEET ASSISTANT, ETELVINA L 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 09/04/2009 MADL FLEET ASSISTANT, ETELVINA L 780.79 Feelings Of Weakness 09/04/2009 MADL FLEET ASSISTANT, ETELVINA L 786.05 Shortness Of Breath 09/04/2009 MADL FLEET ASSISTANT, ETELVINA L 786.2 Cough 09/04/2009 SALGUERO DO, LADONNA K 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 09/04/2009 SALGUERO DO LADONNA K 780.79 Feelings Of Weakness 09/04/2009 SALGUERO DO, LADONNA K 786.05 Shortness Of Breath 09/04/2009 SALGUERO DO LADONNA K 786.2 Cough 09/04/2009 MADL FLEET ASSISTANTHAMMAD BowserA L 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 09/04/2009 MADL FLEET ASSISTANTSARAETELVINA L 780.79 Feelings Of Weakness 09/04/2009 MADL FLEET ASSISTANT, ETELVINA L 786.05 Shortness Of Breath 09/04/2009 MADL FLEET ASSISTANT, ETELVINA L 786.2 Cough 09/07/2009 MORGAN FLEET ASSISTANT, LAURIE S 079.99 Viral Syndrome 09/07/2009 079.99 Viral Syndrome 09/07/2009 MORGAN HARRIS LAURIE S 079.99 Viral Syndrome 09/07/2009 MORGAN FLEET ASSISTANT, LAURIE S 079.99 Viral Syndrome 09/07/2009 AMADO [...] LADONNA K 079.99 Viral Syndrome 09/07/2009 MADL FLEET ASSISTANTHAMMAD BowserA L 079.99 Viral Syndrome 09/07/2009 MADL FLEET ASSISTANT, ETELVINA L 079.99 Viral Syndrome 09/07/2009 MADL FLEET ASSISTANT, ETELVINA L 079.99 Viral Syndrome 09/07/2009 SALGUERO DO, LADONNA K 079.99 Viral Syndrome 09/07/2009 SALGUERO DO, LADONNA K 079.99 Viral Syndrome 09/07/2009 MADL FLEET ASSISTANT, ETELVINA L 079.99 Viral Syndrome 09/07/2009 MADL FLEET ASSISTANT, ETELVINA L 079.99 Viral Syndrome 09/07/2009 MADL FLEET ASSISTANT, ETELVINA L 079.99 Viral Syndrome 09/07/2009 MADL FLEET ASSISTANT, ETELVINA L 079.99 Viral Syndrome 09/07/2009 MADL FLEET ASSISTANT, ETELVINA L 079.99 Viral Syndrome 09/07/2009 MADL FLEET ASSISTANT, ETELVINA L 079.99 Viral Syndrome 09/07/2009 MADL FLEET ASSISTANT, ETELVINA L 079.99 Viral Syndrome 09/07/2009 SALGUERO DO, LADONNA K 079.99 Viral Syndrome 09/07/2009 SALGUERO DO, LADONNA K 079.99 Viral Syndrome 09/07/2009 MADL FLEET ASSISTANT, ETELVINA L 079.99 Viral Syndrome 09/07/2009 SALGUERO DO, LADONNA K 079.99 Viral Syndrome 09/07/2009 MADL FLEET ASSISTANT, ETELVINA L 079.99 Viral Syndrome 10/12/2009 LAURIE [...] DO, LADONNA K 799.02 Hypoxemia 10/12/2009 MADL FLEET ASSISTANT, ETELVINA L 719.58 Stiffness Of Joint, Not Elsewhere Classified, Other Specified Sites 10/12/2009 MADL FLEET ASSISTANT, ETELVINA L 799.02 Hypoxemia 10/12/2009 MADL FLEET ASSISTANT, ETELVINA L 719.58 Stiffness Of Joint, Not Elsewhere Classified, Other Specified Sites 10/12/2009 MADL FLEET ASSISTANT, ETELVINA L 799.02 Hypoxemia 10/12/2009 MADL FLEET ASSISTANT, ETELVINA L 719.58 Stiffness Of Joint, Not Elsewhere Classified, Other Specified Sites 10/12/2009 MADL FLEET ASSISTANT, ETELVINA L 799.02 Hypoxemia 10/12/2009 SALGUERO DO, LADONNA K 719.58 Stiffness Of Joint, Not Elsewhere Classified, Other Specified Sites 10/12/2009 SALGUERO DO, LADONNA K 799.02 Hypoxemia 10/12/2009 SALGUERO DO, LADONNA K 719.58 Stiffness Of Joint, Not Elsewhere Classified, Other Specified Sites 10/12/2009 SALGUERO DO, LADONNA K 799.02 Hypoxemia 10/12/2009 MADL FLEET ASSISTANT, ETELVINA L 719.58 Stiffness Of Joint, Not Elsewhere Classified, Other Specified Sites 10/12/2009 MADL FLEET ASSISTANT, ETELVINA L 799.02 Hypoxemia 10/12/2009 MADL FLEET ASSISTANT, ETELVINA L 719.58 Stiffness Of Joint, Not Elsewhere Classified, Other Specified Sites 10/12/2009 MADL FLEET ASSISTANT, ETELVINA L 799.02 Hypoxemia 10/12/2009 MADL FLEET ASSISTANT, ETELVINA L 719.58 Stiffness Of Joint, Not Elsewhere Classified, Other Specified Sites 10/12/2009 MADL FLEET ASSISTANT, ETELVINA L 799.02 Hypoxemia 10/12/2009 MADL FLEET ASSISTANT, ETELVINA L 719.58 Stiffness Of Joint, Not Elsewhere Classified, Other Specified Sites 10/12/2009 MADL FLEET ASSISTANT, ETELVINA L 799.02 Hypoxemia 10/12/2009 MADL FLEET ASSISTANT, ETELVINA L 719.58 Stiffness Of Joint, Not Elsewhere Classified, Other Specified Sites 10/12/2009 MADL FLEET ASSISTANT, ETELVINA L 799.02 Hypoxemia 10/12/2009 MADL FLEET ASSISTANT, ETELVINA L 719.58 Stiffness Of Joint, Not Elsewhere Classified, Other Specified Sites 10/12/2009 MADL FLEET ASSISTANT, ETELVINA L 799.02 Hypoxemia 10/12/2009 MADL FLEET ASSISTANT, ETELVINA L 719.58 Stiffness Of Joint, Not Elsewhere Classified, Other Specified Sites 10/12/2009 MADL FLEET ASSISTANT, ETELVINA L 799.02 Hypoxemia 10/12/2009 SALGUERO DO, LADONNA K 719.58 Stiffness Of Joint, Not Elsewhere Classified, Other Specified Sites 10/12/2009 SALGUERO DO, LADONNA K 799.02 Hypoxemia 10/12/2009 SALGUERO DO, LADONNA K 719.58 Stiffness Of Joint, Not Elsewhere Classified, Other Specified Sites 10/12/2009 SALGUERO DO, LADONNA K 799.02 Hypoxemia 10/12/2009 MADL FLEET ASSISTANT, ETELVINA L 719.58 Stiffness Of Joint, Not Elsewhere Classified, Other Specified Sites 10/12/2009 MADL FLEET ASSISTANT, ETELVINA L 799.02 Hypoxemia 10/12/2009 SALGUERO DO, LADONNA K 719.58 Stiffness Of Joint, Not Elsewhere Classified, Other Specified Sites 10/12/2009 SALGUERO DO, LADONNA K 799.02 Hypoxemia 10/12/2009 MADL FLEET ASSISTANT, ETELVINA L 719.58 Stiffness Of Joint, Not Elsewhere Classified, Other Specified Sites 10/12/2009 MADL FLEET ASSISTANT, ETELVINA L 799.02 Hypoxemia 11/07/2009 MORGAN HUDSONN, LAURIE S 300.00 ANXIETY UNSPEC 11/07/2009 MORGAN FLEET ASSISTANT, LAURIE S 305.1 NICOTINE DEPENDENCE - CONTINUOUS 11/07/2009 300.00 Anxiety Unspec 11/07/2009 305.1 NICOTINE DEPENDENCE - CONTINUOUS 11/07/2009 MORGAN FLEET ASSISTANT, LAURIE S 300.00 Anxiety Unspec 11/07/2009 MORGAN FLEET ASSISTANT, LAURIE S 305.1 NICOTINE DEPENDENCE - CONTINUOUS 11/07/2009 MORGAN FLEET ASSISTANT, LAURIE S 300.00 Anxiety Unspec 11/07/2009 MORGAN FLEET ASSISTANT, LAURIE S 305.1 NICOTINE DEPENDENCE - CONTINUOUS [...] NICOTINE DEPENDENCE - CONTINUOUS 11/07/2009 SALGUERO DO, LDAONNA K 300.00 Anxiety Unspec 11/07/2009 SALGUERO DO, LADONNA K 305.1 NICOTINE DEPENDENCE - CONTINUOUS 11/07/2009 MADL FLEET ASSISTANT, ETELVINA L 300.00 Anxiety Unspec 11/07/2009 MADL FLEET ASSISTANT, ETELVINA L 305.1 NICOTINE DEPENDENCE - CONTINUOUS 11/07/2009 MADL FLEET ASSISTANT, ETELVINA L 300.00 Anxiety Unspec 11/07/2009 MADL FLEET ASSISTANT, ETELVINA L 305.1 NICOTINE DEPENDENCE - CONTINUOUS 11/07/2009 MADL FLEET ASSISTANT, ETELVINA L 300.00 Anxiety Unspec 11/07/2009 MADL FLEET ASSISTANT, ETELVINA L 305.1 NICOTINE DEPENDENCE - CONTINUOUS 11/07/2009 SALGUERO DO, LADONNA K 300.00 Anxiety Unspec 11/07/2009 SALGUERO DO, LADONNA K 305.1 NICOTINE DEPENDENCE - CONTINUOUS 11/07/2009 SALGUERO DO, LADONNA K 300.00 Anxiety Unspec 11/07/2009 SALGUERO DO, LADONNA K 305.1 NICOTINE DEPENDENCE - CONTINUOUS 11/07/2009 MADL FLEET ASSISTANT, ETELVINA L 300.00 Anxiety Unspec 11/07/2009 MADL FLEET ASSISTANT, ETELVINA L 305.1 NICOTINE DEPENDENCE - CONTINUOUS 11/07/2009 MADL FLEET ASSISTANT, ETELVINA L 300.00 Anxiety Unspec 11/07/2009 MADL FLEET ASSISTANT, ETELVINA L 305.1 NICOTINE DEPENDENCE - CONTINUOUS 11/07/2009 MADL FLEET ASSISTANT, ETELVINA L 300.00 Anxiety Unspec 11/07/2009 MADL FLEET ASSISTANT, ETELVINA L 305.1 NICOTINE DEPENDENCE - CONTINUOUS 11/07/2009 MADL FLEET ASSISTANT, ETELVINA L 300.00 Anxiety Unspec 11/07/2009 MADL FLEET ASSISTANT, ETELVINA L 305.1 NICOTINE DEPENDENCE - CONTINUOUS 11/07/2009 MADL FLEET ASSISTANT, ETELVINA L 300.00 Anxiety Unspec 11/07/2009 MADL FLEET ASSISTANT, ETELVINA L 305.1 NICOTINE DEPENDENCE - CONTINUOUS 11/07/2009 MADL FLEET ASSISTANT, ETELVINA L 300.00 Anxiety Unspec 11/07/2009 MADL FLEET ASSISTANT, ETELVINA L 305.1 NICOTINE DEPENDENCE - CONTINUOUS 11/07/2009 MADL FLEET ASSISTANT, ETELVINA L 300.00 Anxiety Unspec 11/07/2009 MADL FLEET ASSISTANT, ETELVINA L 305.1 NICOTINE DEPENDENCE - CONTINUOUS 11/07/2009 SALGUERO DO, LADONNA K 300.00 Anxiety Unspec 11/07/2009 SALGUERO DO, LADONNA K 305.1 NICOTINE DEPENDENCE - CONTINUOUS 11/07/2009 SALGUERO DO, LADONNA K 300.00 Anxiety Unspec 11/07/2009 SALGUERO DO, LADONNA K 305.1 NICOTINE DEPENDENCE - CONTINUOUS 11/07/2009 MADL FLEET ASSISTANT, ETELVINA L 300.00 Anxiety Unspec 11/07/2009 MADL FLEET ASSISTANT, ETELVINA L 305.1 NICOTINE DEPENDENCE - CONTINUOUS 11/07/2009 SALGUERO DO, LADONNA K 300.00 Anxiety Unspec 11/07/2009 SALGUERO DO, LADONNA K 305.1 NICOTINE DEPENDENCE - CONTINUOUS 11/07/2009 MADL FLEET ASSISTANT, ETELVINA L 300.00 Anxiety Unspec 11/07/2009 MADL FLEET ASSISTANT, ETELVINA L 305.1 NICOTINE DEPENDENCE - CONTINUOUS 01/31/2010 MORGAN FLEET ASSISTANT, LAURIE S 719.43 Joint Pain, Localized In The Wrist 01/31/2010 MORGAN FLEET ASSISTANT, LAURIE S 782.0 Numbness (hypesthesia) 01/31/2010 719.43 Joint Pain, Localized In The Wrist 01/31/2010 782.0 Numbness (hypesthesia) 01/31/2010 MORGAN FLEET ASSISTANT, LAURIE S 719.43 Joint Pain, Localized In The Wrist 01/31/2010 MORGAN FLEET ASSISTANT, LAURIE S 782.0 Numbness (hypesthesia) 01/31/2010 LAURIE [...] LADONNA K 782.0 Numbness (hypesthesia) 01/31/2010 MADL FLEET ASSISTANT, ETELVINA L 719.43 Joint Pain, Localized In The Wrist 01/31/2010 MADL FLEET ASSISTANT, ETELVINA L 782.0 Numbness (hypesthesia) 01/31/2010 MADL FLEET ASSISTANT, ETELVINA L 719.43 Joint Pain, Localized In The Wrist 01/31/2010 MADL FLEET ASSISTANT, ETELVINA L 782.0 Numbness (hypesthesia) 01/31/2010 MADL FLEET ASSISTANT, ETELVINA L 719.43 Joint Pain, Localized In The Wrist 01/31/2010 MADL FLEET ASSISTANT, ETELIVNA L 782.0 Numbness (hypesthesia) 01/31/2010 SALGUERO DO, LADONNA K 719.43 Joint Pain, Localized In The Wrist 01/31/2010 SALGUERO DO, LADONNA K 782.0 Numbness (hypesthesia) 01/31/2010 SALGUERO DO, LADONNA K 719.43 Joint Pain, Localized In The Wrist 01/31/2010 SALGUERO DO, LADONNA K 782.0 Numbness (hypesthesia) 01/31/2010 MADL FLEET ASSISTANT, ETELVINA L 719.43 Joint Pain, Localized In The Wrist 01/31/2010 MADL FLEET ASSISTANT, ETELVINA L 782.0 Numbness (hypesthesia) 01/31/2010 MADL FLEET ASSISTANT, ETELVINA L 719.43 Joint Pain, Localized In The Wrist 01/31/2010 MADL FLEET ASSISTANT, ETELVINA L 782.0 Numbness (hypesthesia) 01/31/2010 MADL FLEET ASSISTANT, ETELVINA L 719.43 Joint Pain, Localized In The Wrist 01/31/2010 MADL FLEET ASSISTANT, ETELVINA L 782.0 Numbness (hypesthesia) 01/31/2010 MADL FLEET ASSISTANT, ETELVINA L 719.43 Joint Pain, Localized In The Wrist 01/31/2010 MADL FLEET ASSISTANT, ETELVINA L 782.0 Numbness (hypesthesia) 01/31/2010 MADL FLEET ASSISTANT, ETELVINA L 719.43 Joint Pain, Localized In The Wrist 01/31/2010 MADL FLEET ASSISTANT, ETELVINA L 782.0 Numbness (hypesthesia) 01/31/2010 MADL FLEET ASSISTANT, ETELVINA L 719.43 Joint Pain, Localized In The Wrist 01/31/2010 MADL FLEET ASSISTANT, ETELVINA L 782.0 Numbness (hypesthesia) 01/31/2010 MADL FLEET ASSISTANT, ETELVINA L 719.43 Joint Pain, Localized In The Wrist 01/31/2010 MADL FLEET ASSISTANT, ETELVINA L 782.0 Numbness (hypesthesia) 01/31/2010 SALGUERO DO, LADONNA K 719.43 Joint Pain, Localized In The Wrist 01/31/2010 SALGUERO DO, LADONNA K 782.0 Numbness (hypesthesia) 01/31/2010 SALGUERO DO, LADONNA K 719.43 Joint Pain, Localized In The Wrist 01/31/2010 SALGUERO DO, LADONNA K 782.0 Numbness (hypesthesia) 01/31/2010 MADL FLEET ASSISTANT, ETELVINA L 719.43 Joint Pain, Localized In The Wrist 01/31/2010 MADL FLEET ASSISTANT, ETELVINA L 782.0 Numbness (hypesthesia) 01/31/2010 SALGUERO DO, LADONNA K 719.43 Joint Pain, Localized In The Wrist 01/31/2010 SALGUERO DO, LADONNA K 782.0 Numbness (hypesthesia) 01/31/2010 MADL FLEET ASSISTANTETELVINA Bowser L 719.43 Joint Pain, Localized In The Wrist 01/31/2010 MADL FLEET ASSISTANTHAMMAD BowserA L 782.0 Numbness (hypesthesia) 03/14/2010 Ot [...] K 517.3 Acute Chest Syndrome 04/02/2010 MADMaxine FLEET ASSISTANTHAMMAD BowserA L 517.3 Acute Chest Syndrome 04/02/2010 MADMaxine FLEET ASSISTANT, ETELVINA L 517.3 Acute Chest Syndrome 04/02/2010 MADL FLEET ASSISTANT, ETELVINA L 517.3 Acute Chest Syndrome 04/02/2010 SALGUERO DO, LADONNA K 517.3 Acute Chest Syndrome 04/02/2010 SALGUERO DO, LADONNA K 517.3 Acute Chest Syndrome 04/02/2010 MADL FLEET ASSISTANT, ETELVINA L 517.3 Acute Chest Syndrome 04/02/2010 MADL FLEET ASSISTANT, ETELVINA L 517.3 Acute Chest Syndrome 04/02/2010 MADL FLEET ASSISTANT, ETELVINA L 517.3 Acute Chest Syndrome 04/02/2010 MADL FLEET ASSISTANT, ETELVINA L 517.3 Acute Chest Syndrome 04/02/2010 MADL FLEET ASSISTANT, ETELVINA L 517.3 Acute Chest Syndrome 04/02/2010 MADL FLEET ASSISTANT, ETELVINA L 517.3 Acute Chest Syndrome 04/02/2010 MADL FLEET ASSISTANT, ETELVINA L 517.3 Acute Chest Syndrome 04/02/2010 SALGUERO DO, LADONNA K 517.3 Acute Chest Syndrome 04/02/2010 SALGUERO DO, LADONNA K 517.3 Acute Chest Syndrome 04/02/2010 MADL FLEET ASSISTANT, ETELVINA L 517.3 Acute Chest Syndrome 04/02/2010 SALGUERO DO, LADONNA K 517.3 Acute Chest Syndrome 04/02/2010 MADL FLEET ASSISTANT, ETELVINA L 517.3 Acute Chest Syndrome 04/14/2010 Ot 305.1 04/14/2010 Ot 491.21 04/14/2010 Ot 786.05 05/20/2010 MORGAN FLEET ASSISTANT, LAURIE S 272.4 HYPERLIPIDEMIA 05/20/2010 MORGAN FLEET ASSISTANT, LAURIE S 414.01 CAD 05/20/2010 272.4 HYPERLIPIDEMIA 05/20/2010 414.01 CAD 05/20/2010 MORGAN FLEET ASSISTANT, LAURIE S 272.4 HYPERLIPIDEMIA 05/20/2010 MORGAN FLEET ASSISTANT, LAURIE S 414.01 CAD 05/20/2010 MORGAN FLEET ASSISTANT, LAURIE S 272.4 HYPERLIPIDEMIA 05/20/2010 MORGAN FLEET ASSISTANT, LAURIE S 414.01 CAD 05/20/2010 AMADO OLVERA, [...] 414.01 CORONARY ARTERY STENOSIS MULTI-VESSEL 05/20/2010 MADL FLEET ASSISTANT, ETELVINA L 272.4 HYPERLIPIDEMIA 05/20/2010 MADL FLEET ASSISTANT, ETELVINA L 414.01 CORONARY ARTERY STENOSIS MULTI-VESSEL 05/20/2010 MADL FLEET ASSISTANT, ETELVINA L 272.4 HYPERLIPIDEMIA 05/20/2010 MADL FLEET ASSISTANT, ETELVINA L 414.01 CORONARY ARTERY STENOSIS MULTI-VESSEL 05/20/2010 MADL FLEET ASSISTANT, ETELVINA L 272.4 HYPERLIPIDEMIA 05/20/2010 MADL FLEET ASSISTANT, ETELVINA L 414.01 CORONARY ARTERY STENOSIS MULTI-VESSEL 05/20/2010 SALGUERO DO, LADONNA K 272.4 HYPERLIPIDEMIA 05/20/2010 SALGUERO DO, LADONNA K 414.01 CORONARY ARTERY STENOSIS MULTI-VESSEL 05/20/2010 SALGUERO DO, LADONNA K 272.4 HYPERLIPIDEMIA 05/20/2010 SALGUERO DO, LADONNA K 414.01 CORONARY ARTERY STENOSIS MULTI-VESSEL 05/20/2010 MADL FLEET ASSISTANT, ETELVINA L 272.4 HYPERLIPIDEMIA 05/20/2010 MADL FLEET ASSISTANT, ETELVINA L 414.01 CORONARY ARTERY STENOSIS MULTI-VESSEL 05/20/2010 MADL FLEET ASSISTANT, ETELVINA L 272.4 HYPERLIPIDEMIA 05/20/2010 MADL FLEET ASSISTANT, ETELVINA L 414.01 CORONARY ARTERY STENOSIS MULTI-VESSEL 05/20/2010 MADL FLEET ASSISTANT, ETELVINA L 272.4 HYPERLIPIDEMIA 05/20/2010 MADL FLEET ASSISTANT, ETELVINA L 414.01 CORONARY ARTERY STENOSIS MULTI-VESSEL 05/20/2010 MADL FLEET ASSISTANT, ETELVINA L 272.4 HYPERLIPIDEMIA 05/20/2010 MADL FLEET ASSISTANT, ETELVINA L 414.01 CORONARY ARTERY STENOSIS MULTI-VESSEL 05/20/2010 MADL FLEET ASSISTANT, ETELVINA L 272.4 HYPERLIPIDEMIA 05/20/2010 MADL FLEET ASSISTANT, ETELVINA L 414.01 CORONARY ARTERY STENOSIS MULTI-VESSEL 05/20/2010 MADL FLEET ASSISTANT, ETELVINA L 272.4 HYPERLIPIDEMIA 05/20/2010 MADL FLEET ASSISTANT, ETELVINA L 414.01 CORONARY ARTERY STENOSIS MULTI-VESSEL 05/20/2010 MADL FLEET ASSISTANT, ETELVINA L 272.4 HYPERLIPIDEMIA 05/20/2010 MADL FLEET ASSISTANT, ETELVINA L 414.01 CORONARY ARTERY STENOSIS MULTI-VESSEL 05/20/2010 SALGUERO DO, LADONNA K 272.4 HYPERLIPIDEMIA 05/20/2010 SALGUERO DO, LADONNA K 414.01 CORONARY ARTERY STENOSIS MULTI-VESSEL 05/20/2010 SALGUERO DO, LADONNA K 272.4 HYPERLIPIDEMIA 05/20/2010 SALGUERO DO, LADONNA K 414.01 CORONARY ARTERY STENOSIS MULTI-VESSEL 05/20/2010 MADL FLEET ASSISTANT, ETELVINA L 272.4 HYPERLIPIDEMIA 05/20/2010 MADL FLEET ASSISTANT, ETELVINA L 414.01 CORONARY ARTERY STENOSIS MULTI-VESSEL 05/20/2010 SALGUERO DO, LADONNA K 272.4 HYPERLIPIDEMIA 05/20/2010 SALGUERO DO, LADONNA K 414.01 CORONARY ARTERY STENOSIS MULTI-VESSEL 05/20/2010 MADL FLEET ASSISTANT, ETELVINA L 272.4 HYPERLIPIDEMIA 05/20/2010 MADL FLEET ASSISTANT, ETELVINA L 414.01 CORONARY ARTERY STENOSIS MULTI-VESSEL 05/26/2010 Ot 842.00 05/26/2010 Ot 959.3 05/26/2010 Ot E000.8 05/26/2010 Ot E013.9 05/26/2010 Ot E849.0 05/26/2010 Ot E917.9 07/31/2010 LAURIE MORA APRN S 356.9 UNSPECIFIED IDIOPATHIC PERIPHERAL NEUROPATHY 07/31/2010 356.9 UNSPECIFIED IDIOPATHIC PERIPHERAL NEUROPATHY 07/31/2010 ALURIE MORA APRN S 356.9 UNSPECIFIED IDIOPATHIC PERIPHERAL [...] 356.9 UNSPECIFIED IDIOPATHIC PERIPHERAL NEUROPATHY 07/31/2010 MADL FLEET ASSISTANT, ETELVINA L 356.9 UNSPECIFIED IDIOPATHIC PERIPHERAL NEUROPATHY 07/31/2010 MADL FLEET ASSISTANT, ETELVINA L 356.9 UNSPECIFIED IDIOPATHIC PERIPHERAL NEUROPATHY 07/31/2010 MADL FLEET ASSISTANT, ETELVINA L 356.9 UNSPECIFIED IDIOPATHIC PERIPHERAL NEUROPATHY 07/31/2010 SALGUERO DO, LADONNA K 356.9 UNSPECIFIED IDIOPATHIC PERIPHERAL NEUROPATHY 07/31/2010 SALGUERO DO, LADONNA K 356.9 UNSPECIFIED IDIOPATHIC PERIPHERAL NEUROPATHY 07/31/2010 MADL FLEET ASSISTANT, ETELVINA L 356.9 UNSPECIFIED IDIOPATHIC PERIPHERAL NEUROPATHY 07/31/2010 MADL FLEET ASSISTANT, ETELVINA L 356.9 UNSPECIFIED IDIOPATHIC PERIPHERAL NEUROPATHY 07/31/2010 MADL FLEET ASSISTANT, ETELVINA L 356.9 UNSPECIFIED IDIOPATHIC PERIPHERAL NEUROPATHY 07/31/2010 MADL FLEET ASSISTANT, ETELVINA L 356.9 UNSPECIFIED IDIOPATHIC PERIPHERAL NEUROPATHY 07/31/2010 MADL FLEET ASSISTANT, ETELVINA L 356.9 UNSPECIFIED IDIOPATHIC PERIPHERAL NEUROPATHY 07/31/2010 MADL FLEET ASSISTANT, ETELVINA L 356.9 UNSPECIFIED IDIOPATHIC PERIPHERAL NEUROPATHY 07/31/2010 MADL FLEET ASSISTANT, ETELVINA L 356.9 UNSPECIFIED IDIOPATHIC PERIPHERAL NEUROPATHY 07/31/2010 SALGUERO DO, LADONNA K 356.9 UNSPECIFIED IDIOPATHIC PERIPHERAL NEUROPATHY 07/31/2010 SALGUERO DO, LADONNA K 356.9 UNSPECIFIED IDIOPATHIC PERIPHERAL NEUROPATHY 07/31/2010 MADL FLEET ASSISTANT, ETELVINA L 356.9 UNSPECIFIED IDIOPATHIC PERIPHERAL NEUROPATHY 07/31/2010 SALGUERO DO, LADONNA K 356.9 UNSPECIFIED IDIOPATHIC PERIPHERAL NEUROPATHY 07/31/2010 MADL FLEET ASSISTANT, ETELVINA L 356.9 UNSPECIFIED IDIOPATHIC PERIPHERAL NEUROPATHY 08/01/2010 MORGAN FLEET ASSISTANT, LAURIE S 791.0 Microalbuminuria 08/01/2010 791.0 Microalbuminuria 08/01/2010 MORGAN FLEET ASSISTANT, LAURIE S 791.0 Microalbuminuria 08/01/2010 MORGAN FLEET ASSISTANT, LAURIE S 791.0 Microalbuminuria 08/01/2010 ROMELIA FISCHER [...] DO, LADONNA K 791.0 Microalbuminuria 08/01/2010 MADL FLEET ASSISTANT, ETELVINA L 791.0 Microalbuminuria 08/01/2010 MADL FLEET ASSISTANT, ETELVINA L 791.0 Microalbuminuria 08/01/2010 MADL FLEET ASSISTANT, ETELVINA L 791.0 Microalbuminuria 08/01/2010 SALGUERO DO, LADONNA K 791.0 Microalbuminuria 08/01/2010 SALGUERO DO, LADONNA K 791.0 Microalbuminuria 08/01/2010 MADL FLEET ASSISTANT, ETELVINA L 791.0 Microalbuminuria 08/01/2010 MADL FLEET ASSISTANT, ETELVINA L 791.0 Microalbuminuria 08/01/2010 MADL FLEET ASSISTANT, ETELVINA L 791.0 Microalbuminuria 08/01/2010 MADL FLEET ASSISTANT, ETELVINA L 791.0 Microalbuminuria 08/01/2010 MADL FLEET ASSISTANT, ETELVINA L 791.0 Microalbuminuria 08/01/2010 MADL FLEET ASSISTANT, ETELVINA L 791.0 Microalbuminuria 08/01/2010 MADL FLEET ASSISTANT, ETELVINA L 791.0 Microalbuminuria 08/01/2010 SALGUERO DO, LADONNA K 791.0 Microalbuminuria 08/01/2010 SALGUERO DO, LADONNA K 791.0 Microalbuminuria 08/01/2010 MADL FLEET ASSISTANT, ETELVINA L 791.0 Microalbuminuria 08/01/2010 SALGUERO DO, LADONNA K 791.0 Microalbuminuria 08/01/2010 MADL FLEET ASSISTANT, ETELVINA L 791.0 Microalbuminuria 08/05/2010 MORGAN HARRIS LAURIE S 721.0 CERVICAL SPONDYLOSIS WITHOUT MYELOPATHY 08/05/2010 721.0 Cervical Spondylosis Without Myelopathy 08/05/2010 MORGAN HARRIS LAURIE S 721.0 Cervical Spondylosis Without Myelopathy 08/05/2010 MORGAN HARRIS LAURIE S 721.0 Cervical Spondylosis Without Myelopathy 08/05/2010 AMADO LOVERA, ROMELIA 721.0 Cervical Spondylosis Without Myelopathy 08/05/2010 [...] 721.0 Cervical Spondylosis Without Myelopathy 08/05/2010 MADL FLEET ASSISTANT, ETELVINA L 721.0 Cervical Spondylosis Without Myelopathy 08/05/2010 MADL FLEET ASSISTANT, ETELVINA L 721.0 Cervical Spondylosis Without Myelopathy 08/05/2010 MADL FLEET ASSISTANT, ETELVINA L 721.0 Cervical Spondylosis Without Myelopathy 08/05/2010 NOEMY DO, LADONNA K 721.0 Cervical Spondylosis Without Myelopathy 08/05/2010 SALGUERO DO, LADONNA K 721.0 Cervical Spondylosis Without Myelopathy 08/05/2010 MADL FLEET ASSISTANT, ETELVINA L 721.0 Cervical Spondylosis Without Myelopathy 08/05/2010 MADL FLEET ASSISTANT, ETELVINA L 721.0 Cervical Spondylosis Without Myelopathy 08/05/2010 MADL FLEET ASSISTANT, ETELVINA L 721.0 Cervical Spondylosis Without Myelopathy 08/05/2010 MADL FLEET ASSISTANT, ETELVINA L 721.0 Cervical Spondylosis Without Myelopathy 08/05/2010 MADL FLEET ASSISTANT, ETELVINA L 721.0 Cervical Spondylosis Without Myelopathy 08/05/2010 MADL FLEET ASSISTANT, ETELVINA L 721.0 Cervical Spondylosis Without Myelopathy 08/05/2010 MADL FLEET ASSISTANT, ETELVINA L 721.0 Cervical Spondylosis Without Myelopathy [...] Ot E849.0 08/07/2010 Ot E884.2 08/13/2010 MORGAN FLEET ASSISTANT, LAURIE S 441.4 ABDOMINAL ANEURYSM WITHOUT MENTION OF RUPTURE 08/13/2010 MORGAN FLEET ASSISTANT, LAURIE S 724.2 LUMBAGO 08/13/2010 441.4 Abdominal Aneurysm Without Mention Of Rupture 08/13/2010 724.2 LUMBAGO 08/13/2010 MORGAN FLEET ASSISTANT, LAURIE S 441.4 Abdominal Aneurysm Without Mention Of Rupture 08/13/2010 MORGAN FLEET ASSISTANT, LAURIE S 724.2 LUMBAGO 08/13/2010 MORGAN FLEET ASSISTANT, LAURIE S 441.4 Abdominal Aneurysm Without Mention Of Rupture 08/13/2010 MORGAN FLEET ASSISTANT, LAURIE S 724.2 LUMBAGO 08/13/2010 ROMELIA FISCHER [...] LADONNA K 724.2 lower back pain 08/13/2010 YBRON BOSS MD 441.4 Abdominal Aneurysm Without Mention [...] K 724.2 lower back pain 08/13/2010 MADL FLEET ASSISTANT, ETELVINA L 441.4 Abdominal Aneurysm Without Mention Of Rupture 08/13/2010 MADL FLEET ASSISTANT, ETELVINA L 724.2 lower back pain 08/13/2010 MADL FLEET ASSISTANT, ETELVINA L 441.4 Abdominal Aneurysm Without Mention Of Rupture 08/13/2010 MADL FLEET ASSISTANT, ETELVINA L 724.2 lower back pain 08/13/2010 MADL FLEET ASSISTANT, ETELVINA L 441.4 Abdominal Aneurysm Without Mention Of Rupture 08/13/2010 MADL FLEET ASSISTANT, ETELVINA L 724.2 lower back pain 08/13/2010 SALGUERO DO, LADONNA K 441.4 Abdominal Aneurysm Without Mention Of Rupture 08/13/2010 SALGUERO DO, LADONNA K 724.2 lower back pain 08/13/2010 SALGUERO DO, LADONNA K 441.4 Abdominal Aneurysm Without Mention Of Rupture 08/13/2010 SALGUERO DO, LADONNA K 724.2 lower back pain 08/13/2010 MADL FLEET ASSISTANT, ETELVINA L 441.4 Abdominal Aneurysm Without Mention Of Rupture 08/13/2010 MADL FLEET ASSISTANT, ETELVINA L 724.2 lower back pain 08/13/2010 MADL FLEET ASSISTANT, ETELVINA L 441.4 Abdominal Aneurysm Without Mention Of Rupture 08/13/2010 MADL FLEET ASSISTANT, ETELVINA L 724.2 lower back pain 08/13/2010 MADL FLEET ASSISTANT, ETELVINA L 441.4 Abdominal Aneurysm Without Mention Of Rupture 08/13/2010 MADL FLEET ASSISTANT, ETELVINA L 724.2 lower back pain 08/13/2010 MADL FLEET ASSISTANT, ETELVINA L 441.4 Abdominal Aneurysm Without Mention Of Rupture 08/13/2010 MADL FLEET ASSISTANT, ETELVINA L 724.2 lower back pain 08/13/2010 MADL FLEET ASSISTANT, ETELVINA L 441.4 Abdominal Aneurysm Without Mention Of Rupture 08/13/2010 MADL FLEET ASSISTANT, ETELVINA L 724.2 lower back pain 08/13/2010 MADL FLEET ASSISTANT, ETELVINA L 441.4 Abdominal Aneurysm Without Mention Of Rupture 08/13/2010 MADL FLEET ASSISTANT, ETELVINA L 724.2 lower back pain 08/13/2010 MADL FLEET ASSISTANT, ETELVINA L 441.4 Abdominal Aneurysm Without Mention Of Rupture 08/13/2010 MADL FLEET ASSISTANT, ETELVINA L 724.2 lower back pain 08/13/2010 [...] S 724.5 Back Pain, General 12/12/2010 MORGAN FLEET ASSISTANT, LAURIE S 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 12/12/2010 MORGAN FLEET ASSISTANT, LAURIE S 729.5 Arm Pain 12/12/2010 MORGAN FLEET ASSISTANT, LAURIE S 719.40 Pain In Joint Site Unspecified 12/12/2010 MORGAN FLEET ASSISTANT, LAURIE S 724.5 Back Pain, General 12/12/2010 MORGAN FLEET ASSISTANT, LAURIE S 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 12/12/2010 MORGAN FLEET ASSISTANT, LAURIE S 729.5 Arm Pain 12/12/2010 AMADO [...] BOSS MD 729.5 Arm Pain 12/12/2010 NOEMY PRAKASH LADONNA K 719.40 Pain In Joint [...] 719.40 Pain In Joint Site Unspecified 12/12/2010 SAGLUERO DO, LADONNA K 724.5 Back Pain, General [...] LADONNA K 729.5 Arm Pain 12/12/2010 MADL FLEET ASSISTANT, ETELVINA L 719.40 Pain In Joint Site Unspecified 12/12/2010 MADL FLEET ASSISTANT, ETELVINA L 724.5 Back Pain, General 12/12/2010 MADL FLEET ASSISTANT, ETELVINA L 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 12/12/2010 MADL FLEET ASSISTANT, ETELVINA L 729.5 Arm Pain 12/12/2010 MADL FLEET ASSISTANT, ETELVINA L 719.40 Pain In Joint Site Unspecified 12/12/2010 MADL FLEET ASSISTANT, ETELVINA L 724.5 Back Pain, General 12/12/2010 MADL FLEET ASSISTANT, ETELVINA L 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 12/12/2010 MADL FLEET ASSISTANT, ETELVINA L 729.5 Arm Pain 12/12/2010 MADL FLEET ASSISTANT, ETELVINA L 719.40 Pain In Joint Site Unspecified 12/12/2010 MADL FLEET ASSISTANT, ETELVINA L 724.5 Back Pain, General 12/12/2010 MADL FLEET ASSISTANT, ETELVINA L 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 12/12/2010 MADL FLEET ASSISTANT, ETELVINA L 729.5 Arm Pain 12/12/2010 MADL FLEET ASSISTANT, ETELVINA L 719.40 Pain In Joint Site Unspecified 12/12/2010 MADL FLEET ASSISTANT, ETELVINA L 724.5 Back Pain, General 12/12/2010 MADL FLEET ASSISTANT, ETELVINA L 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 12/12/2010 MADL FLEET ASSISTANT, ETELVINA L 729.5 Arm Pain 12/12/2010 MADL FLEET ASSISTANT, ETELVINA L 719.40 Pain In Joint Site Unspecified 12/12/2010 MADL FLEET ASSISTANT, ETELVINA L 724.5 Back Pain, General 12/12/2010 MADL FLEET ASSISTANT, ETELVINA L 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 12/12/2010 MADL FLEET ASSISTANT, ETELVINA L 729.5 Arm Pain 12/12/2010 MADL FLEET ASSISTANT, ETELVINA L 719.40 Pain In Joint Site Unspecified 12/12/2010 MADL FLEET ASSISTANT, ETELVINA L 724.5 Back Pain, General 12/12/2010 MADL FLEET ASSISTANT, ETELVINA L 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 12/12/2010 MADL FLEET ASSISTANT, ETELVINA L 729.5 Arm Pain 12/12/2010 SALGUERO DO, LADONNA K 719.40 Pain In Joint Site Unspecified 12/12/2010 SALGUERO DO, LADONNA K 724.5 Back Pain, General 12/12/2010 SALGUERO DO, LADONNA K 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 12/12/2010 SALGUERO DO, LADONNA K 729.5 Arm Pain 12/12/2010 MADL FLEET ASSISTANT, ETELVINA L 719.40 Pain In Joint Site Unspecified 12/12/2010 MADL FLEET ASSISTANT, ETELVINA L 724.5 Back Pain, General 12/12/2010 MADL FLEET ASSISTANT, ETELVINA L 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 12/12/2010 MADL FLEET ASSISTANT, ETELVINA L 729.5 Arm Pain 01/22/2011 Ot [...] V68.1 ISSUE OF REPEAT PRESCRIPTIONS 06/17/2011 MADMaxine FLEET ASSISTANTHAMMAD BowserA L V68.1 ISSUE OF REPEAT PRESCRIPTIONS 06/17/2011 MADL FLEET ASSISTANT, ETELVINA L V68.1 ISSUE OF REPEAT PRESCRIPTIONS 06/17/2011 MADL FLEET ASSISTANT, ETELVINA L V68.1 ISSUE OF REPEAT PRESCRIPTIONS 06/17/2011 LADONNA SALGUERO DO K V68.1 ISSUE OF REPEAT PRESCRIPTIONS 06/17/2011 SALGUERO TERE PRAKASHA K V68.1 ISSUE OF REPEAT PRESCRIPTIONS 06/17/2011 MADL FLEET ASSISTANT, ETELVINA L V68.1 ISSUE OF REPEAT PRESCRIPTIONS 06/17/2011 MADL FLEET ASSISTANT, ETELVINA L V68.1 ISSUE OF REPEAT PRESCRIPTIONS 06/17/2011 MADL FLEET ASSISTANT, ETELVINA L V68.1 ISSUE OF REPEAT PRESCRIPTIONS 06/17/2011 MADL FLEET ASSISTANT, ETELVINA L V68.1 ISSUE OF REPEAT PRESCRIPTIONS 06/17/2011 MADL FLEET ASSISTANT, ETELVINA L V68.1 ISSUE OF REPEAT PRESCRIPTIONS 06/17/2011 MADL FLEET ASSISTANT, ETELVINA L V68.1 ISSUE OF REPEAT PRESCRIPTIONS 06/17/2011 MADL FLEET ASSISTANT, ETELVINA L V68.1 ISSUE OF REPEAT PRESCRIPTIONS 06/17/2011 LADONNA SALGUERO DO K V68.1 ISSUE OF REPEAT PRESCRIPTIONS 06/17/2011 LADONNA SALGUERO DO K V68.1 ISSUE OF REPEAT PRESCRIPTIONS 06/17/2011 MADL FLEET ASSISTANT, ETELVINA L V68.1 ISSUE OF REPEAT PRESCRIPTIONS 06/17/2011 LADONNA SALGUERO DO K V68.1 ISSUE OF REPEAT PRESCRIPTIONS 06/17/2011 HUGOL FLEET ASSISTANT, ETELVINA L V68.1 ISSUE OF REPEAT PRESCRIPTIONS 07/10/2011 Ot 250.00 07/10/2011 Ot 272.4 07/10/2011 Ot 278.03 07/10/2011 Ot 300.4 07/10/2011 Ot 305.1 07/10/2011 Ot 414.01 07/10/2011 Ot 424.1 07/10/2011 Ot 426.3 07/10/2011 Ot 491.21 07/10/2011 Ot V45.82 07/10/2011 Ot V85.41 07/14/2011 Ot 250.00 DIAB MELVA WO COMPL, TYPE II OR UNSPEC TY 07/14/2011 Ot 414.01 CORONARY ATHEROSCLEROSIS OF [place] CORON 07/14/2011 Ot 496 CHR AIRWAY OBSTRUCT [...] (3 Yrs And Above, Im) 07/31/2011 MADL FLEET ASSISTANT, ETELVINA L V04.81 Flu Dx (3 Yrs And Above, Im) 07/31/2011 MADL FLEET ASSISTANT, ETELVINA L V04.81 Flu Dx (3 Yrs And Above, Im) 07/31/2011 MADL FLEET ASSISTANT, ETELVINA L V04.81 Flu Dx (3 Yrs And Above, Im) 07/31/2011 SALGUERO DO, LADONNA K V04.81 Flu Dx (3 Yrs And Above, Im) 07/31/2011 SALGUERO DO, LADONNA K V04.81 Flu Dx (3 Yrs And Above, Im) 07/31/2011 MADL FLEET ASSISTANT, ETELVINA L V04.81 Flu Dx (3 Yrs And Above, Im) 07/31/2011 MADL FLEET ASSISTANT, ETELVINA L V04.81 Flu Dx (3 Yrs And Above, Im) 07/31/2011 MADL FLEET ASSISTANT, ETELVINA L V04.81 Flu Dx (3 Yrs And Above, Im) 07/31/2011 MADL FLEET ASSISTANT, ETELVINA L V04.81 Flu Dx (3 Yrs And Above, Im) 07/31/2011 MADL FLEET ASSISTANT, ETELVINA L V04.81 Flu Dx (3 Yrs And Above, Im) 07/31/2011 MADL FLEET ASSISTANT, ETELVINA L V04.81 Flu Dx (3 Yrs And Above, Im) 07/31/2011 MADL FLEET ASSISTANT, ETELVINA L V04.81 Flu Dx (3 Yrs And Above, Im) 07/31/2011 SALGUERO DO, LADONNA K V04.81 Flu Dx (3 Yrs And Above, Im) 07/31/2011 SALGUERO DO, LADONNA K V04.81 Flu Dx (3 Yrs And Above, Im) 07/31/2011 MADL FLEET ASSISTANT, ETELVINA L V04.81 Flu Dx (3 Yrs And Above, Im) 07/31/2011 SALGUERO DO, LADONNA K V04.81 Flu Dx (3 Yrs And Above, Im) 07/31/2011 MADL FLEET ASSISTANT, ETELVINA L V04.81 Flu Dx (3 Yrs And Above, Im) 08/27/2011 MORGAN FLEET ASSISTANT, LAURIE S 780.50 SLEEP DISTURBANCE, UNSPECIFIED 08/27/2011 780.50 Sleep Disturbance, Unspecified 08/27/2011 MORGAN FLEET ASSISTANT, LAURIE S 780.50 Sleep Disturbance, Unspecified 08/27/2011 MORGAN FLEET ASSISTANT, LAURIE S 780.50 Sleep Disturbance, Unspecified 08/27/2011 [...] K 780.50 Sleep Disturbance, Unspecified 08/27/2011 MADL FLEET ASSISTANT, ETELVINA L 780.50 Sleep Disturbance, Unspecified 08/27/2011 MADL FLEET ASSISTANT, ETELVINA L 780.50 Sleep Disturbance, Unspecified 08/27/2011 MADL FLEET ASSISTANT, ETELVINA L 780.50 Sleep Disturbance, Unspecified 08/27/2011 SALGUERO DO, LADONNA K 780.50 Sleep Disturbance, Unspecified 08/27/2011 SALGUERO DO, LADONNA K 780.50 Sleep Disturbance, Unspecified 08/27/2011 MADL FLEET ASSISTANT, ETELVINA L 780.50 Sleep Disturbance, Unspecified 08/27/2011 MADL FLEET ASSISTANT, ETELVINA L 780.50 Sleep Disturbance, Unspecified 08/27/2011 MADL FLEET ASSISTANT, ETELVINA L 780.50 Sleep Disturbance, Unspecified 08/27/2011 MADL FLEET ASSISTANT, ETELVINA L 780.50 Sleep Disturbance, Unspecified 08/27/2011 MADL FLEET ASSISTANT, ETELVINA L 780.50 Sleep Disturbance, Unspecified 08/27/2011 MADL FLEET ASSISTANT, ETELVINA L 780.50 Sleep Disturbance, Unspecified 08/27/2011 MADL FLEET ASSISTANT, ETELVINA L 780.50 Sleep Disturbance, Unspecified 08/27/2011 SALGUERO DO, LADONNA K 780.50 Sleep Disturbance, Unspecified 08/27/2011 SALGUERO DO, LADONNA K 780.50 Sleep Disturbance, Unspecified 08/27/2011 MADL FLEET ASSISTANT, ETELVINA L 780.50 Sleep Disturbance, Unspecified 08/27/2011 SALGUERO DO, LADONNA K 780.50 Sleep Disturbance, Unspecified 08/27/2011 MADL FLEET ASSISTANT, ETELVINA L 780.50 Sleep Disturbance, Unspecified 09/26/2011 MORGAN FLEET ASSISTANT, LAURIE S 788.41 URINARY FREQUENCY 09/26/2011 MORGAN FLEET ASSISTANT, LAURIE S 788.63 URINARY URGENCY 09/26/2011 788.41 Urinary Frequency 09/26/2011 788.63 Urinary Urgency 09/26/2011 MORGAN FLEET ASSISTANT, LAURIE S 788.41 Urinary Frequency 09/26/2011 MORGAN FLEET ASSISTANT, LAURIE S 788.63 Urinary Urgency 09/26/2011 MORGAN FLEET ASSISTANT, LAURIE S 788.41 Urinary Frequency 09/26/2011 MORGAN FLEET ASSISTANT, LAURIE S 788.63 Urinary Urgency 09/26/2011 ROMELIA [...] LADONNA K 788.63 Urinary Urgency 09/26/2011 MADL FLEET ASSISTANT, ETELVINA L 788.41 Urinary Frequency 09/26/2011 MADL FLEET ASSISTANT, ETELVINA L 788.63 Urinary Urgency 09/26/2011 MADL FLEET ASSISTANT, ETELVINA L 788.41 Urinary Frequency 09/26/2011 MADL FLEET ASSISTANT, ETELVINA L 788.63 Urinary Urgency 09/26/2011 MADL FLEET ASSISTANT, ETELVINA L 788.41 Urinary Frequency 09/26/2011 MADL FLEET ASSISTANT, ETELVINA L 788.63 Urinary Urgency 09/26/2011 SALGUERO DO, LADONNA K 788.41 Urinary Frequency 09/26/2011 SALGUERO DO, LADONNA K 788.63 Urinary Urgency 09/26/2011 SALGUERO DO, LADONNA K 788.41 Urinary Frequency 09/26/2011 SALGUERO DO, LADONNA K 788.63 Urinary Urgency 09/26/2011 MADL FLEET ASSISTANT, ETELVINA L 788.41 Urinary Frequency 09/26/2011 MADL FLEET ASSISTANT, ETELVINA L 788.63 Urinary Urgency 09/26/2011 MADL FLEET ASSISTANT, ETELVINA L 788.41 Urinary Frequency 09/26/2011 MADL FLEET ASSISTANT, ETELVINA L 788.63 Urinary Urgency 09/26/2011 MADL FLEET ASSISTANT, ETELVINA L 788.41 Urinary Frequency 09/26/2011 MADL FLEET ASSISTANT, ETELVINA L 788.63 Urinary Urgency 09/26/2011 MADL FLEET ASSISTANT, ETELVINA L 788.41 Urinary Frequency 09/26/2011 MADL FLEET ASSISTANT, ETELVINA L 788.63 Urinary Urgency 09/26/2011 MADL FLEET ASSISTANT, ETELVINA L 788.41 Urinary Frequency 09/26/2011 MADL FLEET ASSISTANT, ETELVINA L 788.63 Urinary Urgency 09/26/2011 MADL FLEET ASSISTANT, ETELVINA L 788.41 Urinary Frequency 09/26/2011 MADL FLEET ASSISTANT, ETELVINA L 788.63 Urinary Urgency 09/26/2011 MADL FLEET ASSISTANT, ETELVINA L 788.41 Urinary Frequency 09/26/2011 MADL FLEET ASSISTANT, ETELVINA L 788.63 Urinary Urgency 09/26/2011 SALGUERO DO, LADONNA K 788.41 Urinary Frequency 09/26/2011 SALGUERO DO, LADONNA K 788.63 Urinary Urgency 09/26/2011 SALGUERO DO, LADONNA K 788.41 Urinary Frequency 09/26/2011 SALGUERO DO, LADONNA K 788.63 Urinary Urgency 09/26/2011 MADL FLEET ASSISTANT, ETELVINA L 788.41 Urinary Frequency 09/26/2011 MADL FLEET ASSISTANT, ETELVINA L 788.63 Urinary Urgency 09/26/2011 SALGUERO DO, LADONNA K 788.41 Urinary Frequency 09/26/2011 SALGUERO DO, LADONNA K 788.63 Urinary Urgency 09/26/2011 MADL FLEET ASSISTANT, ETELVINA L 788.41 Urinary Frequency 09/26/2011 MADL FLEET ASSISTANT, ETELVINA L 788.63 Urinary Urgency 10/18/2011 MORGAN HARRIS LAURIE S V65.42 COUNSELING - SMOKING CESSATION 10/18/2011 V65.42 Counseling - Smoking Cessation 10/18/2011 SUSHANT MORA APRNA S V65.42 Counseling - Smoking Cessation 10/18/2011 MORGAN HARRIS LAURIE S V65.42 Counseling - Smoking Cessation 10/18/2011 AMADO OLVERA, ROMELIA V65.42 Counseling - Smoking Cessation 10/18/2011 BYRON [...] V65.42 Counseling - Smoking Cessation 10/18/2011 HUGO FLEET ASSISTANT ETELVINA L V65.42 Counseling - Smoking Cessation [...] V65.42 Counseling - Smoking Cessation 10/18/2011 HUGO FLEET ASSISTANT ETELVINA L V65.42 Counseling - Smoking Cessation [...] PAIN 11/11/2011 Ot 414.01 CORONARY ATHEROSCLEROSIS OF [place] CORON 11/11/2011 Ot 424.1 AORTIC VALVE DISORDER [...] LADONNA K 461.9 Sinusitis Acute 12/04/2011 MADL FLEET ASSISTANT, ETELVINA L 461.9 Sinusitis Acute 12/04/2011 MADL FLEET ASSISTANT, ETELVINA L 461.9 Sinusitis Acute 12/04/2011 MADL FLEET ASSISTANT, ETELVINA L 461.9 Sinusitis Acute 12/04/2011 SALGUERO DO, LADONNA K 461.9 Sinusitis Acute 12/04/2011 SALGUERO DO, LADONNA K 461.9 Sinusitis Acute 12/04/2011 MADL FLEET ASSISTANT, ETELVINA L 461.9 Sinusitis Acute 12/04/2011 MADL FLEET ASSISTANT, ETELVINA L 461.9 Sinusitis Acute 12/04/2011 MADL FLEET ASSISTANT, ETELVINA L 461.9 Sinusitis Acute 12/04/2011 MADL FLEET ASSISTANT, ETELVINA L 461.9 Sinusitis Acute 12/04/2011 MADL FLEET ASSISTANT, ETELVINA L 461.9 Sinusitis Acute 12/04/2011 MADL FLEET ASSISTANT, ETELVINA L 461.9 Sinusitis Acute 12/04/2011 MADL FLEET ASSISTANT, ETELVINA L 461.9 Sinusitis Acute 12/04/2011 SALGUERO DO, LADONNA K 461.9 Sinusitis Acute 12/04/2011 SALGUERO DO, LADONNA K 461.9 Sinusitis Acute 12/04/2011 MADL FLEET ASSISTANT, ETELVINA L 461.9 Sinusitis Acute 12/04/2011 SALGUERO DO, LADONNA K 461.9 Sinusitis Acute 12/04/2011 MADL FLEET ASSISTANT, ETELVINA L 461.9 Sinusitis Acute 12/19/2011 MORGAN FLEET ASSISTANT, LAURIE S 486 PNEUMONIA UNSPECIFIED 12/19/2011 MORGAN FLEET ASSISTANT, LAURIE S 786.2 COUGH 12/19/2011 486 Pneumonia Unspecified 12/19/2011 786.2 Cough 12/19/2011 MORGAN FLEET ASSISTANT, LAURIE S 486 Pneumonia Unspecified 12/19/2011 MORGAN FLEET ASSISTANT, LAURIE S 786.2 Cough 12/19/2011 MORGAN FLEET ASSISTANT, LAURIE S 486 Pneumonia Unspecified 12/19/2011 MORGAN FLEET ASSISTANT, LAURIE S 786.2 Cough 12/19/2011 ROMELIA FISCHER [...] DO, LADONNA K 786.2 Cough 12/19/2011 MADL FLEET ASSISTANT, ETELVINA L 486 Pneumonia Unspecified 12/19/2011 MADL FLEET ASSISTANT, ETELVINA L 786.2 Cough 12/19/2011 MADL FLEET ASSISTANT, ETELVINA L 486 Pneumonia Unspecified 12/19/2011 MADL FLEET ASSISTANT, ETELVINA L 786.2 Cough 12/19/2011 MADL FLEET ASSISTANT, ETELVINA L 486 Pneumonia Unspecified 12/19/2011 MADL FLEET ASSISTANT, ETELVINA L 786.2 Cough 12/19/2011 SALGUERO DO, LADONNA K 486 Pneumonia Unspecified 12/19/2011 SALGUERO DO, LADONNA K 786.2 Cough 12/19/2011 SALGUERO DO, LADONNA K 486 Pneumonia Unspecified 12/19/2011 SALGUERO DO, ALDONNA K 786.2 Cough 12/19/2011 MADL FLEET ASSISTANT, ETELVINA L 486 Pneumonia Unspecified 12/19/2011 MADL FLEET ASSISTANT, ETELVINA L 786.2 Cough 12/19/2011 MADL FLEET ASSISTANT, ETELVINA L 486 Pneumonia Unspecified 12/19/2011 MADL FLEET ASSISTANT, ETELVINA L 786.2 Cough 12/19/2011 MADL FLEET ASSISTANT, ETELVINA L 486 Pneumonia Unspecified 12/19/2011 MADL FLEET ASSISTANT, ETELVINA L 786.2 Cough 12/19/2011 MADL FLEET ASSISTANT, ETELVINA L 486 Pneumonia Unspecified 12/19/2011 MADL FLEET ASSISTANT, ETELVINA L 786.2 Cough 12/19/2011 MADL FLEET ASSISTANT, ETELVINA L 486 Pneumonia Unspecified 12/19/2011 MADL FLEET ASSISTANT, ETELVINA L 786.2 Cough 12/19/2011 MADL FLEET ASSISTANT, ETELVINA L 486 Pneumonia Unspecified 12/19/2011 MADL FLEET ASSISTANT, ETELVINA L 786.2 Cough 12/19/2011 MADL FLEET ASSISTANT, ETELVINA L 486 Pneumonia Unspecified 12/19/2011 MADL FLEET ASSISTANT, ETELVINA L 786.2 Cough 12/19/2011 SALGUERO DO, LADONNA K 486 Pneumonia Unspecified 12/19/2011 SALGUERO DO, LADONNA K 786.2 Cough 12/19/2011 SALGUERO DO, LADONNA K 486 Pneumonia Unspecified 12/19/2011 SALGUERO DO, LADONNA K 786.2 Cough 12/19/2011 MADL FLEET ASSISTANT, ETELVINA L 486 Pneumonia Unspecified 12/19/2011 MADL FLEET ASSISTANT, ETELVINA L 786.2 Cough 12/19/2011 SALGUERO DO, LADONNA K 486 Pneumonia Unspecified 12/19/2011 SALGUERO DO, LADONNA K 786.2 Cough 12/19/2011 MADL FLEET ASSISTANT, ETELVINA L 486 Pneumonia Unspecified 12/19/2011 MADL FLEET ASSISTANT, ETELVINA L 786.2 Cough 01/06/2012 MORGAN HARRIS LAURIE S 491.9 BRONCHITIS, CHRONIC UNSPEC 01/06/2012 PALOMA MORA APRNNDA S 780.79 MALAISE AND FATIGUE 01/06/2012 491.9 Bronchitis, Chronic Unspec 01/06/2012 780.79 Malaise And Fatigue 01/06/2012 MORGAN FLEET ASSISTANT, LAURIE S 491.9 Bronchitis, Chronic Unspec 01/06/2012 MORGAN FLEET ASSISTANT, LAURIE S 780.79 Malaise And Fatigue 01/06/2012 MORGAN HARRIS LAURIE S 491.9 Bronchitis, Chronic Unspec 01/06/2012 MORGAN FLEET ASSISTANT, LAURIE S 780.79 Malaise And Fatigue 01/06/2012 [...] K 780.79 Malaise And Fatigue 01/06/2012 MADL FLEET ASSISTANT, ETELVINA L 491.9 Bronchitis, Chronic Unspec 01/06/2012 MADL FLEET ASSISTANT, ETELVINA L 780.79 Malaise And Fatigue 01/06/2012 MADL FLEET ASSISTANT, ETELVINA L 491.9 Bronchitis, Chronic Unspec 01/06/2012 MADL FLEET ASSISTANT, ETELVINA L 780.79 Malaise And Fatigue 01/06/2012 MADL FLEET ASSISTANT, ETELVINA L 491.9 Bronchitis, Chronic Unspec 01/06/2012 MADL FLEET ASSISTANT, ETELVINA L 780.79 Malaise And Fatigue 01/06/2012 SALGUERO DO, LADONNA K 491.9 Bronchitis, Chronic Unspec 01/06/2012 SALGUERO DO, LADONNA K 780.79 Malaise And Fatigue 01/06/2012 SALGUERO DO, LADONNA K 491.9 Bronchitis, Chronic Unspec 01/06/2012 SALGUERO DO, LADONNA K 780.79 Malaise And Fatigue 01/06/2012 MADL FLEET ASSISTANT, ETELVINA L 491.9 Bronchitis, Chronic Unspec 01/06/2012 MADL FLEET ASSISTANT, ETELVINA L 780.79 Malaise And Fatigue 01/06/2012 MADL FLEET ASSISTANT, ETELVINA L 491.9 Bronchitis, Chronic Unspec 01/06/2012 MADL FLEET ASSISTANT, ETELVINA L 780.79 Malaise And Fatigue 01/06/2012 MADL FLEET ASSISTANT, ETELVINA L 491.9 Bronchitis, Chronic Unspec 01/06/2012 MADL FLEET ASSISTANT, ETELVINA L 780.79 Malaise And Fatigue 01/06/2012 MADL FLEET ASSISTANT, ETELVINA L 491.9 Bronchitis, Chronic Unspec 01/06/2012 MADL FLEET ASSISTANT, ETELVINA L 780.79 Malaise And Fatigue 01/06/2012 MADL FLEET ASSISTANT, ETELVINA L 491.9 Bronchitis, Chronic Unspec 01/06/2012 MADL FLEET ASSISTANT, ETELVINA L 780.79 Malaise And Fatigue 01/06/2012 MADL FLEET ASSISTANT, ETELVINA L 491.9 Bronchitis, Chronic Unspec 01/06/2012 MADL FLEET ASSISTANT, ETELVINA L 780.79 Malaise And Fatigue 01/06/2012 MADL FLEET ASSISTANT, ETELVINA L 491.9 Bronchitis, Chronic Unspec 01/06/2012 MADL FLEET ASSISTANT, ETELVINA L 780.79 Malaise And Fatigue 01/06/2012 SALGUERO DO, LADONNA K 491.9 Bronchitis, Chronic Unspec 01/06/2012 SALGUERO DOTEREA K 780.79 Malaise And Fatigue 01/06/2012 SALGUERO DO, LADONNA K 491.9 Bronchitis, Chronic Unspec 01/06/2012 SALGUERO DO, LADONNA K 780.79 Malaise And Fatigue 01/06/2012 HUGOL FLEET ASSISTANT ETELVINA L 491.9 Bronchitis, Chronic Unspec 01/06/2012 MADL FLEET ASSISTANT ETELVINA L 780.79 Malaise And Fatigue 01/06/2012 SALGUERO DO LADONNA K 491.9 Bronchitis, Chronic Unspec 01/06/2012 SALGUERO DO, LADONNA K 780.79 Malaise And Fatigue 01/06/2012 HUGOL FLEET ASSISTANT ETELVINA L 491.9 Bronchitis, Chronic Unspec 01/06/2012 HUGOL FLEET ASSISTANT ETELVINA L 780.79 Malaise And Fatigue 01/30/2012 [...] NOS 01/30/2012 Ot 414.01 CORONARY ATHEROSCLEROSIS OF [place] CORON 01/30/2012 Ot 424.1 AORTIC VALVE DISORDER [...] DISORDER 02/02/2012 Ot 414.01 CORONARY ATHEROSCLEROSIS OF [place] CORON 02/02/2012 Ot 458.9 HYPOTENSION NOS 02/02/2012 [...] Angioneurotic Edema Not Elsewhere Classified 02/04/2012 MADL FLEET ASSISTANT, ETELVINA L 728.88 Rhabdomyolysis 02/04/2012 MADL FLEET ASSISTANT, ETELVINA L 995.1 Angioneurotic Edema Not Elsewhere Classified 02/04/2012 MADL FLEET ASSISTANT, ETELVINA L 728.88 Rhabdomyolysis 02/04/2012 MADL FLEET ASSISTANT, ETELVINA L 995.1 Angioneurotic Edema Not Elsewhere Classified 02/04/2012 MADL FLEET ASSISTANT, ETELVINA L 728.88 Rhabdomyolysis 02/04/2012 MADL FLEET ASSISTANT, ETELVINA L 995.1 Angioneurotic Edema Not Elsewhere Classified 02/04/2012 SALGUERO DO, LADONNA K 728.88 Rhabdomyolysis 02/04/2012 SALGUERO DO, LADONNA K 995.1 Angioneurotic Edema Not Elsewhere Classified 02/04/2012 SALGUERO DO, LADONNA K 728.88 Rhabdomyolysis 02/04/2012 SALGUERO DO, LADONNA K 995.1 Angioneurotic Edema Not Elsewhere Classified 02/04/2012 MADL FLEET ASSISTANT, ETELVINA L 728.88 Rhabdomyolysis 02/04/2012 MADL FLEET ASSISTANT, ETELVINA L 995.1 Angioneurotic Edema Not Elsewhere Classified 02/04/2012 MADL FLEET ASSISTANT, ETELVINA L 728.88 Rhabdomyolysis 02/04/2012 MADL FLEET ASSISTANT, ETELVINA L 995.1 Angioneurotic Edema Not Elsewhere Classified 02/04/2012 MADL FLEET ASSISTANT, ETELVINA L 728.88 Rhabdomyolysis 02/04/2012 MADL FLEET ASSISTANT, ETELVINA L 995.1 Angioneurotic Edema Not Elsewhere Classified 02/04/2012 MADL FLEET ASSISTANT, ETELVINA L 728.88 Rhabdomyolysis 02/04/2012 MADL FLEET ASSISTANT, ETELVINA L 995.1 Angioneurotic Edema Not Elsewhere Classified 02/04/2012 MADL FLEET ASSISTANT, ETELVINA L 728.88 Rhabdomyolysis 02/04/2012 MADL FLEET ASSISTANT, ETELVINA L 995.1 Angioneurotic Edema Not Elsewhere Classified 02/04/2012 MADL FLEET ASSISTANT, ETELVINA L 728.88 Rhabdomyolysis 02/04/2012 MADL FLEET ASSISTANT, ETELVINA L 995.1 Angioneurotic Edema Not Elsewhere Classified 02/04/2012 MADL FLEET ASSISTANT, ETELVINA L 728.88 Rhabdomyolysis 02/04/2012 MADL FLEET ASSISTANT, ETELVINA L 995.1 Angioneurotic Edema Not Elsewhere Classified 02/04/2012 SALGUERO DO, LADONNA K 728.88 Rhabdomyolysis 02/04/2012 SALGUERO DO, LADONNA K 995.1 Angioneurotic Edema Not Elsewhere Classified 02/04/2012 SALGUERO DO, LADONNA K 728.88 Rhabdomyolysis 02/04/2012 SALGUERO DO, LADONNA K 995.1 Angioneurotic Edema Not Elsewhere Classified 02/04/2012 MADL FLEET ASSISTANT, ETELVINA L 728.88 Rhabdomyolysis 02/04/2012 MADL FLEET ASSISTANT, ETELVINA L 995.1 Angioneurotic Edema Not Elsewhere Classified 02/04/2012 SALGUERO DO, LADONNA K 728.88 Rhabdomyolysis 02/04/2012 SALGUERO DO, LADONNA K 995.1 Angioneurotic Edema Not Elsewhere Classified 02/04/2012 MADL FLEET ASSISTANT, ETELVINA L 728.88 Rhabdomyolysis 02/04/2012 MADL FLEET ASSISTANT, ETELVINA L 995.1 Angioneurotic Edema Not Elsewhere [...] DO, LADONNA K 782.3 EDEMA 02/06/2012 MADL FLEET ASSISTANT, ETELVINA L 782.3 EDEMA 02/06/2012 MADL FLEET ASSISTANT, ETELVINA L 782.3 EDEMA 02/06/2012 MADL FLEET ASSISTANT, ETELVINA L 782.3 EDEMA 02/06/2012 SALGUERO DO, LADONNA K 782.3 EDEMA 02/06/2012 SALGUERO DO, LADONNA K 782.3 EDEMA 02/06/2012 MADL FLEET ASSISTANT, ETELVINA L 782.3 EDEMA 02/06/2012 MADL FLEET ASSISTANT, ETELVINA L 782.3 EDEMA 02/06/2012 MADL FLEET ASSISTANT, ETELVINA L 782.3 EDEMA 02/06/2012 MADL FLEET ASSISTANT, ETELVINA L 782.3 EDEMA 02/06/2012 MADL FLEET ASSISTANT, ETELVINA L 782.3 EDEMA 02/06/2012 MADL FLEET ASSISTANT, ETELVINA L 782.3 EDEMA 02/06/2012 MADL FLEET ASSISTANT, ETELVINA L 782.3 EDEMA 02/06/2012 SALGUERO DO, LADONNA K 782.3 EDEMA 02/06/2012 SALGUERO DO, LADONNA K 782.3 EDEMA 02/06/2012 MADL FLEET ASSISTANT, ETELVINA L 782.3 EDEMA 02/06/2012 SALGUERO DO, LADONNA K 782.3 EDEMA 02/06/2012 MADL FLEET ASSISTANT, ETELVINA L 782.3 EDEMA 02/11/2012 MORGAN HUDSONN, [...] DOA K 079.99 Viral Syndrome 02/11/2012 MADL FLEET ASSISTANT, ETELVINA L 079.99 Viral Syndrome 02/11/2012 MADL FLEET ASSISTANT, ETELVINA L 079.99 Viral Syndrome 02/11/2012 MADL FLEET ASSISTANT, ETELVINA L 079.99 Viral Syndrome 02/11/2012 SALGUERO DO LADONNA K 079.99 Viral Syndrome 02/11/2012 SALGUERO DO LADONNA K 079.99 Viral Syndrome 02/11/2012 MADL FLEET ASSISTANT, ETELVINA L 079.99 Viral Syndrome 02/11/2012 MADL FLEET ASSISTANT, ETELVINA L 079.99 Viral Syndrome 02/11/2012 MADL FLEET ASSISTANT, ETELVINA L 079.99 Viral Syndrome 02/11/2012 MADL FLEET ASSISTANT, ETELVINA L 079.99 Viral Syndrome 02/11/2012 MADL FLEET ASSISTANT, ETELVINA L 079.99 Viral Syndrome 02/11/2012 MADL FLEET ASSISTANT, ETELVINA L 079.99 Viral Syndrome 02/11/2012 MADL FLEET ASSISTANT, ETELVINA L 079.99 Viral Syndrome 02/11/2012 SALGUERO DO, LADONNA K 079.99 Viral Syndrome 02/11/2012 SALGUERO DO, LADONNA K 079.99 Viral Syndrome 02/11/2012 MADL FLEET ASSISTANT, ETELVINA L 079.99 Viral Syndrome 02/11/2012 SALGUERO DO, LADONNA K 079.99 Viral Syndrome 02/11/2012 MADL FLEET ASSISTANT, ETELVINA L 079.99 Viral Syndrome 02/17/2012 LAURIE [...] LADONNA K 783.21 Weight Loss 02/17/2012 MADL FLEET ASSISTANT, ETELVINA L 783.21 Weight Loss 02/17/2012 MADL FLEET ASSISTANT, ETELVINA L 783.21 Weight Loss 02/17/2012 MADL FLEET ASSISTANT, ETELVINA L 783.21 Weight Loss 02/17/2012 SALGUERO DO, LADONNA K 783.21 Weight Loss 02/17/2012 SALGUERO DO, LADONNA K 783.21 Weight Loss 02/17/2012 MADL FLEET ASSISTANT, ETELVINA L 783.21 Weight Loss 02/17/2012 MADL FLEET ASSISTANT, ETELVINA L 783.21 Weight Loss 02/17/2012 MADL FLEET ASSISTANT, ETELVINA L 783.21 Weight Loss 02/17/2012 MADL FLEET ASSISTANT, ETELVINA L 783.21 Weight Loss 02/17/2012 MADL FLEET ASSISTANT, ETELVINA L 783.21 Weight Loss 02/17/2012 MADL FLEET ASSISTANT, ETELVINA L 783.21 Weight Loss 02/17/2012 MADL FLEET ASSISTANT, ETELVINA L 783.21 Weight Loss 02/17/2012 SALGUERO DO, LADONNA K 783.21 Weight Loss 02/17/2012 SALGUERO DO, LADONNA K 783.21 Weight Loss 02/17/2012 MADL FLEET ASSISTANT, ETELVINA L 783.21 Weight Loss 02/17/2012 SALGUERO DO, LADONNA K 783.21 Weight Loss 02/17/2012 MADL FLEET ASSISTANT, ETELVINA L 783.21 Weight Loss 02/24/2012 PALOMA [...] DO, LADONNA K 787.91 Diarrhea 02/24/2012 MADL FLEET ASSISTANT, ETELVINA L 787.91 Diarrhea 02/24/2012 MADL FLEET ASSISTANT, ETELVINA L 787.91 Diarrhea 02/24/2012 MADL FLEET ASSISTANT, ETELVINA L 787.91 Diarrhea 02/24/2012 SALGUERO DO, LADONNA K 787.91 Diarrhea 02/24/2012 SALGUERO DO, LADONNA K 787.91 Diarrhea 02/24/2012 MADL FLEET ASSISTANT, ETELVINA L 787.91 Diarrhea 02/24/2012 MADL FLEET ASSISTANT, ETELVINA L 787.91 Diarrhea 02/24/2012 MADL FLEET ASSISTANT, ETELVINA L 787.91 Diarrhea 02/24/2012 MADL FLEET ASSISTANT, ETELVINA L 787.91 Diarrhea 02/24/2012 MADL FLEET ASSISTANT, ETELVINA L 787.91 Diarrhea 02/24/2012 MADL FLEET ASSISTANT, ETELVINA L 787.91 Diarrhea 02/24/2012 MADL FLEET ASSISTANT, ETELVINA L 787.91 Diarrhea 02/24/2012 SALGUERO DO, LADONNA K 787.91 Diarrhea 02/24/2012 SALGUERO DO, LADONNA K 787.91 Diarrhea 02/24/2012 MADL FLEET ASSISTANT, ETELVINA L 787.91 Diarrhea 02/24/2012 SALGUERO DO, LADONNA K 787.91 Diarrhea 02/24/2012 MADL FLEET ASSISTANT, ETELVINA L 787.91 Diarrhea 04/07/2012 MORGAN FLEET ASSISTANT, LAURIE S 787.20 DYSPHAGIA, UNSPECIFIED 04/07/2012 787.20 Dysphagia, Unspecified 04/07/2012 MORGAN FLEET ASSISTANT, LAURIE S 787.20 Dysphagia, Unspecified 04/07/2012 MORGAN FLEET ASSISTANT, LAURIE S 787.20 Dysphagia, Unspecified 04/07/2012 ROMELIA [...] DO, LADONNA K 787.20 Dysphagia, Unspecified 04/07/2012 MADMaxine FLEET ASSISTANT, ETELVINA L 787.20 Dysphagia, Unspecified 04/07/2012 MADL FLEET ASSISTANT, ETELVINA L 787.20 Dysphagia, Unspecified 04/07/2012 MADL FLEET ASSISTANT, ETELVINA L 787.20 Dysphagia, Unspecified 04/07/2012 SALGUERO DO, LADONNA K 787.20 Dysphagia, Unspecified 04/07/2012 SALGUERO DO, LADONNA K 787.20 Dysphagia, Unspecified 04/07/2012 MADL FLEET ASSISTANT, ETELVINA L 787.20 Dysphagia, Unspecified 04/07/2012 MADL FLEET ASSISTANT, ETELVINA L 787.20 Dysphagia, Unspecified 04/07/2012 MADL FLEET ASSISTANT, ETELVINA L 787.20 Dysphagia, Unspecified 04/07/2012 MADL FLEET ASSISTANT, ETELVINA L 787.20 Dysphagia, Unspecified 04/07/2012 MADL FLEET ASSISTANT, ETELVINA L 787.20 Dysphagia, Unspecified 04/07/2012 MADL FLEET ASSISTANT, ETELVINA L 787.20 Dysphagia, Unspecified 04/07/2012 MADL FLEET ASSISTANT, ETELVINA L 787.20 Dysphagia, Unspecified 04/07/2012 SALGUERO DO, LADONNA K 787.20 Dysphagia, Unspecified 04/07/2012 SALGUERO DO, LADONNA K 787.20 Dysphagia, Unspecified 04/07/2012 MADL FLEET ASSISTANT, ETELVINA L 787.20 Dysphagia, Unspecified 04/07/2012 SALGUERO DO, LADONNA K 787.20 Dysphagia, Unspecified 04/07/2012 MADL FLEET ASSISTANT, ETELVINA L 787.20 Dysphagia, Unspecified 04/16/2012 Ot [...] Cervical Cancer Screening (pap Smear) 09/07/2012 AISHA FLEET ASSISTANTHAMMAD BowserA L V03.82 Ppv23 (pneumovax) Dx 09/07/2012 AISHA FLEET ASSISTANTHAMMAD BowserA L V76.10 Breast Cancer Screening 09/07/2012 MADL FLEET ASSISTANT, ETLEVINA L V76.12 Mammogram Screening 09/07/2012 AISHA FLEET ASSISTANTHAMMAD BowserA L V76.2 Cervical Cancer Screening (pap Smear) 09/07/2012 AISHA FLEET ASSISTANTHAMMAD BowserA L V03.82 Ppv23 (pneumovax) Dx 09/07/2012 MADL FLEET ASSISTANTHAMMAD BowserA L V76.10 Breast Cancer Screening 09/07/2012 AISHA FLEET ASSISTANT, ETELVINA L V76.12 Mammogram Screening 09/07/2012 MADL FLEET ASSISTANT, ETELVINA L V76.2 Cervical Cancer Screening (pap Smear) 09/07/2012 MADL FLEET ASSISTANT, ETELVINA L V03.82 Ppv23 (pneumovax) Dx 09/07/2012 MADL FLEET ASSISTANT, ETELVINA L V76.10 Breast Cancer Screening 09/07/2012 MADL FLEET ASSISTANT, ETELVINA L V76.12 Mammogram Screening 09/07/2012 MADL FLEET ASSISTANT, ETELVINA L V76.2 Cervical Cancer Screening (pap [...] Cervical Cancer Screening (pap Smear) 09/07/2012 MADMaxine FLEET ASSISTANT, ETELVINA L V03.82 Ppv23 (pneumovax) Dx 09/07/2012 MADL FLEET ASSISTANT, ETELVINA L V76.10 Breast Cancer Screening 09/07/2012 MADL FLEET ASSISTANT, ETELVINA L V76.12 Mammogram Screening 09/07/2012 MADL FLEET ASSISTANT, ETELVINA L V76.2 Cervical Cancer Screening (pap Smear) 09/07/2012 MADL FLEET ASSISTANT, ETELVINA L V03.82 Ppv23 (pneumovax) Dx 09/07/2012 MADL FLEET ASSISTANT, ETELVINA L V76.10 Breast Cancer Screening 09/07/2012 MADL FLEET ASSISTANT, ETELVINA L V76.12 Mammogram Screening 09/07/2012 MADL FLEET ASSISTANT, ETELVINA L V76.2 Cervical Cancer Screening (pap Smear) 09/07/2012 MADL FLEET ASSISTANT, ETELVINA L V03.82 Ppv23 (pneumovax) Dx 09/07/2012 MAD FLEET ASSISTANT, ETELVINA L V76.10 Breast Cancer Screening 09/07/2012 MAD FLEET ASSISTANT, ETELVINA L V76.12 Mammogram Screening 09/07/2012 MAD FLEET ASSISTANT, ETELVINA L V76.2 Cervical Cancer Screening (pap Smear) 09/07/2012 MAD FLEET ASSISTANT, ETELVINA L V03.82 Ppv23 (pneumovax) Dx 09/07/2012 [facility] FLEET ASSISTANT, ETELVINA L V76.10 Breast Cancer Screening 09/07/2012 [facility] FLEET ASSISTANT, ETELVINA L V76.12 Mammogram Screening 09/07/2012 MAD FLEET ASSISTANT, ETELVINA L V76.2 Cervical Cancer Screening (pap Smear) 09/07/2012 MAD FLEET ASSISTANT, ETELVINA L V03.82 Ppv23 (pneumovax) Dx 09/07/2012 [facility] FLEET ASSISTANT, ETELVINA L V76.10 Breast Cancer Screening 09/07/2012 [facility] FLEET ASSISTANT, ETELVINA L V76.12 Mammogram Screening 09/07/2012 [facility] FLEET ASSISTANT, ETELVINA L V76.2 Cervical Cancer Screening (pap Smear) 09/07/2012 [facility] FLEET ASSISTANT, ETELVINA L V03.82 Ppv23 (pneumovax) Dx 09/07/2012 [facility] FLEET ASSISTANT, ETELVINA L V76.10 Breast Cancer Screening 09/07/2012 [facility] FLEET ASSISTANT, ETELVINA L V76.12 Mammogram Screening 09/07/2012 [facility] FLEET ASSISTANT, ETELVINA L V76.2 Cervical Cancer Screening (pap Smear) 09/07/2012 MAD FLEET ASSISTANT, ETELVINA L V03.82 Ppv23 (pneumovax) Dx 09/07/2012 [facility] FLEET ASSISTANT, ETELVINA L V76.10 Breast Cancer Screening 09/07/2012 [facility] FLEET ASSISTANT, ETELVINA L V76.12 Mammogram Screening 09/07/2012 MAD FLEET ASSISTANT, ETELVINA L V76.2 Cervical Cancer Screening (pap [...] Cervical Cancer Screening (pap Smear) 09/07/2012 MADL FLEET ASSISTANT, ETELVINA L V03.82 Ppv23 (pneumovax) Dx 09/07/2012 MADL FLEET ASSISTANTHAMMAD BowserA L V76.10 Breast Cancer Screening 09/07/2012 MAD FLEET ASSISTANT, ETELVINA L V76.12 Mammogram Screening 09/07/2012 MAD FLEET ASSISTANTHAMMAD BowserA L V76.2 Cervical Cancer Screening (pap Smear) 09/07/2012 NOEMY PRAKASH LADONNA K V03.82 Ppv23 (pneumovax) Dx 09/07/2012 TERE SALGUERO DOA K V76.10 Breast Cancer Screening 09/07/2012 TERE SALGUERO DOA K V76.12 Mammogram Screening 09/07/2012 TERE SALGUERO DOA K V76.2 Cervical Cancer Screening (pap Smear) 09/07/2012 MADL FLEET ASSISTANT, ETELVINA L V03.82 Ppv23 (pneumovax) Dx 09/07/2012 MAD FLEET ASSISTANT, ETELVINA L V76.10 Breast Cancer Screening 09/07/2012 MAD FLEET ASSISTANT, ETELVINA L V76.12 Mammogram Screening 09/07/2012 MAD FLEET ASSISTANT, ETELVINA L V76.2 Cervical Cancer Screening (pap [...] medication for a long time 10/22/2012 MADL FLEET ASSISTANTHAMMADA L V58.69 taking high-risk medication for a long time 10/22/2012 LADONNA SALGUERO DO K V58.69 taking high-risk medication for a long time 10/22/2012 LADONNA SALGUERO DO K V58.69 taking high-risk medication for a long time 10/22/2012 MADL FLEET ASSISTANTHAMMADA L V58.69 taking high-risk medication for a long time 10/22/2012 MADL FLEET ASSISTANTHAMMADA L V58.69 taking high-risk medication for a long time 10/22/2012 MADL FLEET ASSISTANT, ETELVINA L V58.69 taking high-risk medication for a long time 10/22/2012 MADL FLEET ASSISTANTHAMMADA L V58.69 taking high-risk medication for a long time 10/22/2012 MADL FLEET ASSISTANTHAMMAD BowserA L V58.69 taking high-risk medication for a long time 10/22/2012 MADL FLEET ASSISTANTHAMMAD BowserA L V58.69 taking high-risk medication for a long time 10/22/2012 MADL FLEET ASSISTANTHAMMADA L V58.69 taking high-risk medication for a long time 10/22/2012 LADONNA SALGUERO DO K V58.69 taking high-risk medication for a long time 10/22/2012 LADONNA SALGUERO DO K V58.69 taking high-risk medication for a long time 10/22/2012 HUGOL FLEET ASSISTANTHAMMAD BowserA L V58.69 taking high-risk medication for a long time 10/22/2012 LADONNA SALGUERO DO K V58.69 taking high-risk medication for a long time 10/22/2012 MADL FLEET ASSISTANTHAMMAD BowserA L V58.69 taking high-risk medication for a long time 10/26/2012 Ot 250.00 DIAB MELVA WO COMPL, TYPE II OR UNSPEC TY 10/26/2012 Ot 278.00 OBESITY, NOS 10/26/2012 Ot 300.00 ANXIETY STATE NOS 10/26/2012 Ot 305.1 TOBACCO USE DISORDER 10/26/2012 Ot 311 DEPRESSIVE DISORDER NEC 10/26/2012 Ot 401.9 HYPERTENSION NOS 10/26/2012 Ot 414.01 CORONARY ATHEROSCLEROSIS OF [place] CORON 10/26/2012 Ot 491.21 OBSTR CHRONIC BRONCHITIS, W (ACUTE) EXAC 10/26/2012 Ot 530.81 ESOPHAGEAL REFLUX 10/26/2012 Ot 724.5 BACKACHE NOS 10/26/2012 Ot 786.50 CHEST PAIN NOS 10/26/2012 Ot V45.82 PERCUTANEOUS TRANSLUM CORON ANGIOPLASTY 10/26/2012 Ot V85.39 BODY MASS INDEX 39.0-39.9, ADULT 11/01/2012 465.9 UPPER RESPIRATORY INFECTION 11/01/2012 MORGAN FLEET ASSISTANT, LAURIE S 465.9 UPPER RESPIRATORY INFECTION 11/01/2012 [...] K 465.9 UPPER RESPIRATORY INFECTION 11/01/2012 MADL FLEET ASSISTANT, ETELVINA L 465.9 UPPER RESPIRATORY INFECTION 11/01/2012 MADL FLEET ASSISTANT, ETELVIAN L 465.9 UPPER RESPIRATORY INFECTION 11/01/2012 MADL FLEET ASSISTANT, ETELVINA L 465.9 UPPER RESPIRATORY INFECTION 11/01/2012 SALGUERO DO, LADONNA K 465.9 UPPER RESPIRATORY INFECTION 11/01/2012 SALGUERO DO, LADONNA K 465.9 UPPER RESPIRATORY INFECTION 11/01/2012 MADL FLEET ASSISTANT, ETELVINA L 465.9 UPPER RESPIRATORY INFECTION 11/01/2012 MADL FLEET ASSISTANT, ETELVINA L 465.9 UPPER RESPIRATORY INFECTION 11/01/2012 MADL FLEET ASSISTANT, ETELVINA L 465.9 UPPER RESPIRATORY INFECTION 11/01/2012 MADL FLEET ASSISTANT, ETELVINA L 465.9 UPPER RESPIRATORY INFECTION 11/01/2012 MADL FLEET ASSISTANT, ETELVINA L 465.9 UPPER RESPIRATORY INFECTION 11/01/2012 MADL FLEET ASSISTANT, ETELVINA L 465.9 UPPER RESPIRATORY INFECTION 11/01/2012 MADL FLEET ASSISTANT, ETELVINA L 465.9 UPPER RESPIRATORY INFECTION 11/01/2012 SALGUERO DO, LADONNA K 465.9 UPPER RESPIRATORY INFECTION 11/01/2012 SALGUERO DO, LADONNA K 465.9 UPPER RESPIRATORY INFECTION 11/01/2012 MADL FLEET ASSISTANT, ETELVINA L 465.9 UPPER RESPIRATORY INFECTION 11/01/2012 SALGUERO DO, LADONNA K 465.9 UPPER RESPIRATORY INFECTION 11/01/2012 MADL FLEET ASSISTANT, ETELVINA L 465.9 UPPER RESPIRATORY INFECTION 11/13/2012 Ot 250.00 DIAB MELVA WO COMPL, TYPE II OR UNSPEC TY 11/13/2012 Ot 272.4 HYPERLIPIDEMIA NEC/NOS 11/13/2012 Ot 278.00 OBESITY, NOS 11/13/2012 Ot 300.00 ANXIETY STATE NOS 11/13/2012 Ot 305.1 TOBACCO USE DISORDER 11/13/2012 Ot 311 DEPRESSIVE DISORDER NEC 11/13/2012 Ot 401.9 HYPERTENSION NOS 11/13/2012 Ot 414.01 CORONARY ATHEROSCLEROSIS OF [place] CORON 11/13/2012 Ot 458.9 HYPOTENSION NOS 11/13/2012 [...] BODY MASS INDEX 40.0-44.9, ADULT 12/02/2012 MORGAN FLEET ASSISTANT, LAURIE S 244.9 HYPOTHYROIDISM 12/02/2012 AMADO OLVERA, ROMELIA 244.9 HYPOTHYROIDISM 12/02/2012 KARYN OLVERA, BYRON Bruner 244.9 HYPOTHYROIDISM 12/02/2012 244.9 HYPOTHYROIDISM 12/02/2012 244.9 [...] DO, LADONNA K 244.9 HYPOTHYROIDISM 12/02/2012 MADL FLEET ASSISTANT, ETELVINA L 244.9 HYPOTHYROIDISM 12/02/2012 MADL FLEET ASSISTANT, ETELVINA L 244.9 HYPOTHYROIDISM 12/02/2012 MADL FLEET ASSISTANT, ETELVINA L 244.9 HYPOTHYROIDISM 12/02/2012 SALGUERO DO, LADONNA K 244.9 HYPOTHYROIDISM 12/02/2012 SALGUERO DO, LADONNA K 244.9 HYPOTHYROIDISM 12/02/2012 MADL FLEET ASSISTANT, ETELVINA L 244.9 HYPOTHYROIDISM 12/02/2012 MADL FLEET ASSISTANT, ETELVINA L 244.9 HYPOTHYROIDISM 12/02/2012 MADL FLEET ASSISTANT, ETELVINA L 244.9 HYPOTHYROIDISM 12/02/2012 MADL FLEET ASSISTANT, ETELVINA L 244.9 HYPOTHYROIDISM 12/02/2012 MADL FLEET ASSISTANT, ETELVINA L 244.9 HYPOTHYROIDISM 12/02/2012 MADL FLEET ASSISTANT, ETELVINA L 244.9 HYPOTHYROIDISM 12/02/2012 MADL FLEET ASSISTANT, ETELVINA L 244.9 HYPOTHYROIDISM 12/02/2012 SALGUERO DO, ALDONNA K 244.9 HYPOTHYROIDISM 12/02/2012 SALGUERO DO, LADONNA K 244.9 HYPOTHYROIDISM 12/02/2012 MADL FLEET ASSISTANT, ETELVINA L 244.9 HYPOTHYROIDISM 12/02/2012 SALGUERO DO, LADONNA K 244.9 HYPOTHYROIDISM 12/02/2012 MADL FLEET ASSISTANT, ETELVINA L 244.9 HYPOTHYROIDISM 12/26/2012 Ot 305.1 [...] DO, LADONNA K 780.52 insomnia 02/08/2013 MADL FLEET ASSISTANT, ETELVINA L 780.52 insomnia 02/08/2013 MADL FLEET ASSISTANT, ETELVINA L 780.52 insomnia 02/08/2013 MADL FLEET ASSISTANT, ETELVINA L 780.52 insomnia 02/08/2013 SALGUERO DO, LADONNA K 780.52 insomnia 02/08/2013 SALGUERO DO, LADONNA K 780.52 insomnia 02/08/2013 MADL FLEET ASSISTANT, ETELVINA L 780.52 insomnia 02/08/2013 MADL FLEET ASSISTANT, ETELVINA L 780.52 insomnia 02/08/2013 MADL FLEET ASSISTANT, ETELVINA L 780.52 insomnia 02/08/2013 MADL FLEET ASSISTANT, ETELVINA L 780.52 insomnia 02/08/2013 MADL FLEET ASSISTANT, ETELVINA L 780.52 insomnia 02/08/2013 MADL FLEET ASSISTANT, ETELVINA L 780.52 insomnia 02/08/2013 MADL FLEET ASSISTANT, ETELVINA L 780.52 insomnia 02/08/2013 SALGUERO DO, LADONNA K 780.52 insomnia 02/08/2013 SALGUERO DO, LADONNA K 780.52 insomnia 02/08/2013 MADL FLEET ASSISTANT, ETELVINA L 780.52 insomnia 02/08/2013 SALGUERO DO, LADONNA K 780.52 insomnia 02/08/2013 MADL FLEET ASSISTANT, ETELVINA L 780.52 insomnia 04/17/2013 REHAN OLVERA, MARCO A aGrcia Ot 305.1 TOBACCO USE DISORDER 04/17/2013 REHAN [...] LADONNA K 110.1 ONYCHOMYCOSIS 06/03/2013 SALGUERO DO, LADNONA K 719.07 EDEMA FOOT 06/03/2013 SALGUERO DO, LADONNA K 110.1 ONYCHOMYCOSIS 06/03/2013 SALGUERO DO, LADONNA K 719.07 EDEMA FOOT 06/03/2013 SALGUERO DO, LADONNA K 110.1 ONYCHOMYCOSIS 06/03/2013 SALGUERO DO, LADONNA K 719.07 EDEMA FOOT 06/03/2013 MADL FLEET ASSISTANT, ETELVINA L 110.1 ONYCHOMYCOSIS 06/03/2013 MADL FLEET ASSISTANT, ETELVINA L 719.07 EDEMA FOOT 06/03/2013 MADL FLEET ASSISTANT, ETELVINA L 110.1 ONYCHOMYCOSIS 06/03/2013 MADL FLEET ASSISTANT, ETELVINA L 719.07 EDEMA FOOT 06/03/2013 MADL FLEET ASSISTANT, ETELVINA L 110.1 ONYCHOMYCOSIS 06/03/2013 MADL FLEET ASSISTANT, ETELVINA L 719.07 EDEMA FOOT 06/03/2013 SALGUERO DO, LADONNA K 110.1 ONYCHOMYCOSIS 06/03/2013 SALGUERO DO, LADONNA K 719.07 EDEMA FOOT 06/03/2013 SALGUERO DO, LADONNA K 110.1 ONYCHOMYCOSIS 06/03/2013 SALGUERO DO, LADONNA K 719.07 EDEMA FOOT 06/03/2013 MADL FLEET ASSISTANT, ETELVINA L 110.1 ONYCHOMYCOSIS 06/03/2013 MADL FLEET ASSISTANT, ETELVINA L 719.07 EDEMA FOOT 06/03/2013 MADL FLEET ASSISTANT, ETELVINA L 110.1 ONYCHOMYCOSIS 06/03/2013 MADL FLEET ASSISTANT, ETELVINA L 719.07 EDEMA FOOT 06/03/2013 MADL FLEET ASSISTANT, ETELVINA L 110.1 ONYCHOMYCOSIS 06/03/2013 MADL FLEET ASSISTANT, ETELVINA L 719.07 EDEMA FOOT 06/03/2013 MADL FLEET ASSISTANT, ETELVINA L 110.1 ONYCHOMYCOSIS 06/03/2013 MADL FLEET ASSISTANT, ETELVINA L 719.07 EDEMA FOOT 06/03/2013 MADL FLEET ASSISTANT, ETELVINA L 110.1 ONYCHOMYCOSIS 06/03/2013 MADL FLEET ASSISTANT, ETELVINA L 719.07 EDEMA FOOT 06/03/2013 MADL FLEET ASSISTANT, ETELVINA L 110.1 ONYCHOMYCOSIS 06/03/2013 MADL FLEET ASSISTANT, ETELVINA L 719.07 EDEMA FOOT 06/03/2013 MADL FLEET ASSISTANT, ETELVINA L 110.1 ONYCHOMYCOSIS 06/03/2013 MADL FLEET ASSISTANT, ETELVINA L 719.07 EDEMA FOOT 06/03/2013 SALGUERO DO, LADONNA K 110.1 ONYCHOMYCOSIS 06/03/2013 SALGUERO DO, LADONNA K 719.07 EDEMA FOOT 06/03/2013 SALGUERO DO, LADONNA K 110.1 ONYCHOMYCOSIS 06/03/2013 SALGUERO DO, LADONNA K 719.07 EDEMA FOOT 06/03/2013 MADL FLEET ASSISTANT, ETELVINA L 110.1 ONYCHOMYCOSIS 06/03/2013 MADL FLEET ASSISTANT, ETELVINA L 719.07 EDEMA FOOT 06/03/2013 SALGUERO DO, LADONNA K 110.1 ONYCHOMYCOSIS 06/03/2013 SALGUERO DO, LADONNA K 719.07 EDEMA FOOT 06/03/2013 MADL FLEET ASSISTANT, ETELVINA L 110.1 ONYCHOMYCOSIS 06/03/2013 HUGOL FLEET ASSISTANT, ETELVINA L 719.07 EDEMA FOOT 08/03/2013 EDUARDO VILLEGAS MD Ot 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 08/03/2013 EDUARDO VILLEGAS MD Ot 788.30 UNSPECIFIED URINARY INCONTINENCE 08/25/2013 BYRON BOSS MD 311 DEPRESSIVE DISORDER NOT ELSEWHERE CLASSIFIED 08/25/2013 BYRON BSOS MD 595.0 ACUTE CYSTITIS 08/25/2013 SALGUERO DO [...] LADONNA K 595.0 ACUTE CYSTITIS 08/25/2013 MADL FLEET ASSISTANT, ETELVINA L 311 depression 08/25/2013 MADL FLEET ASSISTANT, ETELVINA L 595.0 ACUTE CYSTITIS 08/25/2013 MADL FLEET ASSISTANT, ETELVINA L 311 depression 08/25/2013 MADL FLEET ASSISTANT, ETELVINA L 595.0 ACUTE CYSTITIS 08/25/2013 MADL FLEET ASSISTANT, ETELVINA L 311 depression 08/25/2013 MADL FLEET ASSISTANT, ETELVINA L 595.0 ACUTE CYSTITIS 08/25/2013 SALGUERO DO, LADONNA K 311 depression 08/25/2013 SALGUERO DO, LADONNA K 595.0 ACUTE CYSTITIS 08/25/2013 SALGUERO DO, LADONNA K 311 depression 08/25/2013 SALGUERO DO, LADONNA K 595.0 ACUTE CYSTITIS 08/25/2013 MADL FLEET ASSISTANT, ETELVINA L 311 depression 08/25/2013 MADL FLEET ASSISTANT, ETELVINA L 595.0 ACUTE CYSTITIS 08/25/2013 MADL FLEET ASSISTANT, ETELVINA L 311 depression 08/25/2013 MADL FLEET ASSISTANT, ETELVINA L 595.0 ACUTE CYSTITIS 08/25/2013 MADL FLEET ASSISTANT, ETELVINA L 311 depression 08/25/2013 MADL FLEET ASSISTANT, ETELVINA L 595.0 ACUTE CYSTITIS 08/25/2013 MADL FLEET ASSISTANT, ETELVINA L 311 depression 08/25/2013 MADL FLEET ASSISTANT, ETELVINA L 595.0 ACUTE CYSTITIS 08/25/2013 MADL FLEET ASSISTANT, ETELVINA L 311 depression 08/25/2013 MADL FLEET ASSISTANT, ETELVINA L 595.0 ACUTE CYSTITIS 08/25/2013 MADL FLEET ASSISTANT, ETELVINA L 311 depression 08/25/2013 MADL FLEET ASSISTANT, ETELVINA L 595.0 ACUTE CYSTITIS 08/25/2013 MADL FLEET ASSISTANT, ETELVINA L 311 depression 08/25/2013 MADL FLEET ASSISTANT, ETELVINA L 595.0 ACUTE CYSTITIS 08/25/2013 SALGUERO DO, LADONNA K 311 depression 08/25/2013 SALGUERO DO, LADONNA K 595.0 ACUTE CYSTITIS 08/25/2013 SALGUERO DO, LADONNA K 311 depression 08/25/2013 SALGUERO DO, LADONNA K 595.0 ACUTE CYSTITIS 08/25/2013 MADL FLEET ASSISTANT, ETELVINA L 311 depression 08/25/2013 MADL FLEET ASSISTANT, ETELVINA L 595.0 ACUTE CYSTITIS 08/25/2013 SALGUERO DO, LADONNA K 311 depression 08/25/2013 SALGUERO DO, LADONNA K 595.0 ACUTE CYSTITIS 08/25/2013 MADL FLEET ASSISTANT, ETELVINA L 311 depression 08/25/2013 MADL FLEET ASSISTANT, ETELVINA L 595.0 ACUTE CYSTITIS 09/02/2013 SALGUERO [...] LADONNA K 709.8 FISSURES SKIN 09/02/2013 MADL FLEET ASSISTANT, ETELVINA L 709.8 FISSURES SKIN 09/02/2013 MADL FLEET ASSISTANT, ETELVINA L 709.8 FISSURES SKIN 09/02/2013 MADL FLEET ASSISTANT, ETELVINA L 709.8 FISSURES SKIN 09/02/2013 SALGUERO DO, LADONNA K 709.8 FISSURES SKIN 09/02/2013 SALGUERO DO, LADONNA K 709.8 FISSURES SKIN 09/02/2013 MADL FLEET ASSISTANT, ETELVINA L 709.8 FISSURES SKIN 09/02/2013 MADL FLEET ASSISTANT, ETELVINA L 709.8 FISSURES SKIN 09/02/2013 MADL FLEET ASSISTANT, ETELVINA L 709.8 FISSURES SKIN 09/02/2013 MADL FLEET ASSISTANT, ETELVINA L 709.8 FISSURES SKIN 09/02/2013 MADL FLEET ASSISTANT, ETELVINA L 709.8 FISSURES SKIN 09/02/2013 MADL FLEET ASSISTANT, ETELVINA L 709.8 FISSURES SKIN 09/02/2013 MADL FLEET ASSISTANT, ETELVINA L 709.8 FISSURES SKIN 09/02/2013 SALGUERO DO, LADONNA K 709.8 FISSURES SKIN 09/02/2013 SALGUERO DO, LADONNA K 709.8 FISSURES SKIN 09/02/2013 MADL FLEET ASSISTANT, ETELVINA L 709.8 FISSURES SKIN 09/02/2013 SALGUERO DO, LADONNA K 709.8 FISSURES SKIN 09/02/2013 MADL FLEET ASSISTANT, ETELVINA L 709.8 FISSURES SKIN 09/22/2013 BYRON [...] 788.1 pain during urination (dysuria) 09/22/2013 MADL FLEET ASSISTANT, ETELVINA L 788.1 pain during urination (dysuria) 09/22/2013 MADL FLEET ASSISTANT, ETELVINA L 788.1 pain during urination (dysuria) 09/22/2013 MADL FLEET ASSISTANT, ETELVINA L 788.1 pain during urination (dysuria) 09/22/2013 SALGUERO DO, LADONNA K 788.1 PAIN DURING URINATION (DYSURIA) 09/22/2013 SALGUERO DO, LADONNA K 788.1 PAIN DURING URINATION (DYSURIA) 09/22/2013 MADL FLEET ASSISTANT, ETELVINA L 788.1 PAIN DURING URINATION (DYSURIA) 09/22/2013 MADL FLEET ASSISTANT, ETELVINA L 788.1 PAIN DURING URINATION (DYSURIA) 09/22/2013 MADL FLEET ASSISTANT, ETELVINA L 788.1 PAIN DURING URINATION (DYSURIA) 09/22/2013 MADL FLEET ASSISTANT, ETELVINA L 788.1 PAIN DURING URINATION (DYSURIA) 09/22/2013 HUGOL FLEET ASSISTANT, ETELVINA L 788.1 PAIN DURING URINATION (DYSURIA) 09/22/2013 MADL FLEET ASSISTANT, ETELVINA L 788.1 PAIN DURING URINATION (DYSURIA) 09/22/2013 MADL FLEET ASSISTANT, ETELVINA L 788.1 PAIN DURING URINATION (DYSURIA) 09/22/2013 SALGUERO DO, LADONNA K 788.1 PAIN DURING URINATION (DYSURIA) 09/22/2013 SALGUERO DO, LADONNA K 788.1 PAIN DURING URINATION (DYSURIA) 09/22/2013 MADL FLEET ASSISTANT, ETELVINA L 788.1 PAIN DURING URINATION (DYSURIA) 09/22/2013 SALGUERO DO, LADONNA K 788.1 PAIN DURING URINATION (DYSURIA) 09/22/2013 MADL FLEET ASSISTANT, ETELVINA L 788.1 PAIN DURING URINATION (DYSURIA) [...] FALLING OBJECT 10/25/2013 HARDEEP DORANTES Ot V06.1 [id number], COMBINED [ 11/04/2013 MARLA EVERETT MD Ot [...] LADONNA K Ot 414.01 CORONARY ATHEROSCLEROSIS OF [place] CORON 02/11/2014 NOEMY PRAKASH LADONNA K Ot [...] MASS INDEX 39.0-39.9, ADULT 02/13/2014 THOMPSON QURESHI FLEET ASSISTANT Ot 724.5 BACKACHE NOS 02/27/2014 TERE SALGUERO DOA K 381.01 ACUTE SEROUS OTITIS MEDIA 02/27/2014 NOEMY PRAKASH LADONNA K 381.01 ACUTE SEROUS OTITIS MEDIA 02/27/2014 SALGUERO DO LADONNA K 381.01 ACUTE SEROUS OTITIS MEDIA 02/27/2014 SALGUERO DO LADONNA K 381.01 ACUTE SEROUS OTITIS MEDIA 02/27/2014 HUGOL FLEET ASSISTANTETELVINA 381.01 ACUTE SEROUS OTITIS MEDIA 02/27/2014 MADL FLEET ASSISTANT, ETELVINA L 381.01 ACUTE SEROUS OTITIS MEDIA 02/27/2014 MADL FLEET ASSISTANT, ETELVINA L 381.01 ACUTE SEROUS OTITIS MEDIA 02/27/2014 SALGUERO DO, LADONNA K 381.01 ACUTE SEROUS OTITIS MEDIA 02/27/2014 SALGUERO DO, LADONNA K 381.01 ACUTE SEROUS OTITIS MEDIA 02/27/2014 MADL FLEET ASSISTANT, ETELVINA L 381.01 ACUTE SEROUS OTITIS MEDIA 02/27/2014 MADL FLEET ASSISTANT, ETELVINA L 381.01 ACUTE SEROUS OTITIS MEDIA 02/27/2014 MADL FLEET ASSISTANT, ETELVINA L 381.01 ACUTE SEROUS OTITIS MEDIA 02/27/2014 MADL FLEET ASSISTANT, ETELVINA L 381.01 ACUTE SEROUS OTITIS MEDIA 02/27/2014 MADL FLEET ASSISTANT, ETELVINA L 381.01 ACUTE SEROUS OTITIS MEDIA 02/27/2014 MADL FLEET ASSISTANT, ETELVINA L 381.01 ACUTE SEROUS OTITIS MEDIA 02/27/2014 MADL FLEET ASSISTANT, ETELVINA L 381.01 ACUTE SEROUS OTITIS MEDIA 02/27/2014 SALGUERO DO, LADONNA K 381.01 ACUTE SEROUS OTITIS MEDIA 02/27/2014 SALGUERO DO, LADONNA K 381.01 ACUTE SEROUS OTITIS MEDIA 02/27/2014 MADL FLEET ASSISTANT, ETELVINA L 381.01 ACUTE SEROUS OTITIS MEDIA 02/27/2014 SALGUERO DO, LADONNA K 381.01 ACUTE SEROUS OTITIS MEDIA 02/27/2014 MADL FLEET ASSISTANT, ETELVINA L 381.01 ACUTE SEROUS OTITIS MEDIA 05/22/2014 MADL FLEET ASSISTANT, ETELVINA L V16.0 FAMILY HISTORY OF MALIGNANT NEOPLASM OF GASTROINTESTINAL TRACT 05/22/2014 MADL FLEET ASSISTANT, ETELVINA L V16.0 FAMILY HISTORY OF MALIGNANT NEOPLASM OF GASTROINTESTINAL TRACT 05/22/2014 SALGUERO DO, LADONNA K V16.0 FAMILY HISTORY OF MALIGNANT NEOPLASM OF GASTROINTESTINAL TRACT 05/22/2014 SALGUERO DO, LADONNA K V16.0 FAMILY HISTORY OF MALIGNANT NEOPLASM OF GASTROINTESTINAL TRACT 05/22/2014 MADL FLEET ASSISTANT, ETELVINA L V16.0 FAMILY HISTORY OF MALIGNANT NEOPLASM OF GASTROINTESTINAL TRACT 05/22/2014 MADL FLEET ASSISTANT, ETELVINA L V16.0 FAMILY HISTORY OF MALIGNANT NEOPLASM OF GASTROINTESTINAL TRACT 05/22/2014 MADL FLEET ASSISTANT, ETELVINA L V16.0 FAMILY HISTORY OF MALIGNANT NEOPLASM OF GASTROINTESTINAL TRACT 05/22/2014 AISHA FLEET ASSISTANT, ETELVINA L V16.0 FAMILY HISTORY OF MALIGNANT NEOPLASM OF GASTROINTESTINAL TRACT 05/22/2014 AISHA FLEET ASSISTANT, ETELVINA L V16.0 FAMILY HISTORY OF MALIGNANT NEOPLASM OF GASTROINTESTINAL TRACT 05/22/2014 MADL FLEET ASSISTANT, ETELVINA L V16.0 FAMILY HISTORY OF MALIGNANT NEOPLASM OF GASTROINTESTINAL TRACT 05/22/2014 AISHA FLEET ASSISTANT, ETELVINA L V16.0 FAMILY HISTORY OF MALIGNANT NEOPLASM OF GASTROINTESTINAL TRACT 05/22/2014 SALGUERO DO LADONNA K V16.0 FAMILY HISTORY OF MALIGNANT NEOPLASM OF GASTROINTESTINAL TRACT 05/22/2014 SALGUERO DO LADONNA K V16.0 FAMILY HISTORY OF MALIGNANT NEOPLASM OF GASTROINTESTINAL TRACT 05/22/2014 AISHA FLEET ASSISTANT, ETELVINA L V16.0 FAMILY HISTORY OF MALIGNANT [...] FACCP CCDS Ot 414.01 CORONARY ATHEROSCLEROSIS OF [place] CORON 05/23/2014 BRADLY KIRBY MD, FACCP CCDS [...] ALVIN Bruner Ot 414.01 CORONARY ATHEROSCLEROSIS OF [place] CORON 06/05/2014 SHANA OLVERA, ALVIN Bruner Ot 496 CHR AIRWAY OBSTRUCT NEC 06/05/2014 ALVIN SALDANA MD Ot 562.10 DIVERTICULOSIS COLON (W/O MENT OF HEMORR 06/05/2014 ALVIN SALDAAN MD Ot V16.0 FAMILY HX-GI MALIGNANCY 06/05/2014 ALVIN SALDANA MD Ot V76.51 SCREEN MAL NEOP-COLON 07/10/2014 ALVIN SALDANA MD Ot 530.3 ESOPHAGEAL STRICTURE 07/10/2014 ALVIN SALDANA MD Ot 535.50 UNSP GASTRITIS GASTRODUODENITIS W/O ME 07/10/2014 ALVIN SALDANA MD Ot 553.3 DIAPHRAGMATIC HERNIA 08/28/2014 MADL FLEET ASSISTANT, ETELVINA L 381.01 ACUTE SEROUS OTITIS MEDIA 08/28/2014 MADL FLEET ASSISTANT, ETELVINA L 799.02 HYPOXIA 08/28/2014 MADL FLEET ASSISTANT, ETELVINA L V04.81 FLU SHOT 08/28/2014 MADL FLEET ASSISTANT, ETELVINA L 381.01 ACUTE SEROUS OTITIS MEDIA 08/28/2014 MADL FLEET ASSISTANT, ETELVINA L 799.02 HYPOXIA 08/28/2014 MADL FLEET ASSISTANT, ETELVINA L V04.81 FLU SHOT 08/28/2014 MADL FLEET ASSISTANT, ETELVINA L 381.01 ACUTE SEROUS OTITIS MEDIA 08/28/2014 MADL FLEET ASSISTANT, ETELVINA L 799.02 HYPOXIA 08/28/2014 MADL FLEET ASSISTANT, ETELVINA L V04.81 FLU SHOT 08/28/2014 MADL FLEET ASSISTANT, ETELVINA L 381.01 ACUTE SEROUS OTITIS MEDIA 08/28/2014 MADL FLEET ASSISTANT, ETELVINA L 799.02 HYPOXIA 08/28/2014 MADL FLEET ASSISTANT, ETELVINA L V04.81 FLU SHOT 08/28/2014 MADL FLEET ASSISTANT, ETELVINA L 381.01 ACUTE SEROUS OTITIS MEDIA 08/28/2014 MADL FLEET ASSISTANT, ETELVINA L 799.02 HYPOXIA 08/28/2014 MADL FLEET ASSISTANT, ETELVINA L V04.81 FLU SHOT 08/28/2014 MADL FLEET ASSISTANT, ETELVINA L 381.01 ACUTE SEROUS OTITIS MEDIA 08/28/2014 MADL FLEET ASSISTANT, ETELVINA L 799.02 HYPOXIA 08/28/2014 MADL FLEET ASSISTANT, ETELVINA L V04.81 FLU SHOT 08/28/2014 MADL FLEET ASSISTANT, ETELVINA L 381.01 ACUTE SEROUS OTITIS MEDIA 08/28/2014 MADL FLEET ASSISTANT, ETELVINA L 799.02 HYPOXIA 08/28/2014 MADL FLEET ASSISTANT, ETELVINA L V04.81 FLU SHOT 08/28/2014 SALGUERO DO, LADONNA K 381.01 ACUTE SEROUS OTITIS MEDIA 08/28/2014 SALGUERO DO, LADONNA K 799.02 HYPOXIA 08/28/2014 SALGUERO DO, LADONNA K V04.81 FLU SHOT 08/28/2014 SALGUERO DO, LADONNA K 381.01 ACUTE SEROUS OTITIS MEDIA 08/28/2014 SALGUERO DO, LADONNA K 799.02 HYPOXIA 08/28/2014 SALGUERO DO, LADONNA K V04.81 FLU SHOT 08/28/2014 MADL FLEET ASSISTANT, ETELVINA L 381.01 ACUTE SEROUS OTITIS MEDIA 08/28/2014 MADL FLEET ASSISTANT, ETELVINA L 799.02 HYPOXIA 08/28/2014 MADL FLEET ASSISTANT, ETELVINA L V04.81 FLU SHOT 08/28/2014 SALGUERO DO, LADONNA K 381.01 ACUTE SEROUS OTITIS MEDIA 08/28/2014 SALGUERO DO, LADONNA K 799.02 HYPOXIA 08/28/2014 SALGUERO DO, LADONNA K V04.81 FLU SHOT 08/28/2014 MADL FLEET ASSISTANT, ETELVINA L 381.01 ACUTE SEROUS OTITIS MEDIA 08/28/2014 MADL FLEET ASSISTANT, ETELVINA L 799.02 HYPOXIA 08/28/2014 MADL FLEET ASSISTANT, ETELVINA L V04.81 FLU SHOT 08/31/2014 THOMPSON QURESHI FLEET ASSISTANT Ot 250.00 DIAB MELVA WO COMPL, TYPE II OR UNSPEC TY 08/31/2014 THOMPSON QURESHI FLEET ASSISTANT Ot 305.1 TOBACCO USE DISORDER 08/31/2014 THOMPSON QURESHI FLEET ASSISTANT Ot 382.9 OTITIS MEDIA NOS 08/31/2014 THOMPSON QURESHI APRN Ot 784.2 SWELLING IN HEAD NECK 08/31/2014 THOMPSON QURSEHI APRN Ot 910.4 INSECT BITE HEAD 08/31/2014 THOMPSON QURESHI APRN Ot E849.0 ACCIDENT IN HOME 08/31/2014 THOMPSON QURESHI APRN Ot 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.4 NONVENOM ARTHROPOD BITE 08/31/2014 THOMPSON QURESHI APRN Ot V58.67 LONG-TERM (CURRENT) USE OF INSULIN 09/01/2014 THOMPSON QURESHI FLEET ASSISTANT Ot 373.00 BLEPHARITIS NOS 09/01/2014 THOMPSON QURESHI FLEET ASSISTANT Ot 379.92 SWELLING OR MASS OF EYE [...] CANDIDIASIS OF SKIN AND NAILS 10/23/2014 AISHA FLEET ASSISTANT, ETELVINA L V03.82 PPV23 (PNEUMOVAX) DX 10/23/2014 [...] JOINT INVOLVING ANKLE AND FOOT 12/11/2014 HUGOL FLEET ASSISTANT, ETELVINA L 719.46 PAIN IN JOINT INVOLVING LOWER LEG 12/11/2014 MADL FLEET ASSISTANT, ETELVINA L 719.47 PAIN IN JOINT INVOLVING ANKLE AND FOOT 12/11/2014 SALGUERO DO, LADONNA K 719.46 PAIN IN JOINT INVOLVING LOWER LEG 12/11/2014 SALGUERO DO, LADONNA K 719.47 PAIN IN JOINT INVOLVING ANKLE AND FOOT 12/11/2014 HUGOL FLEET ASSISTANT, ETELVINA L 719.46 PAIN IN JOINT INVOLVING LOWER LEG 12/11/2014 MADL FLEET ASSISTANT, ETELVINA L 719.47 PAIN IN JOINT INVOLVING [...] HARRIS, ETELVINA L 757.39 POROKEROTOSIS 02/09/2015 MADL FLEET ASSISTANT, ETELVINA L 788.1 DYSURIA 02/09/2015 MADL FLEET ASSISTANT, ETELVINA L 789.02 ABDOMINAL PAIN LEFT UPPER QUADRANT 02/09/2015 SALGUERO DO, LADONNA K 735.4 HAMMER TOE (ACQUIRED) 02/09/2015 SALGUERO DO, LADONNA K 757.39 POROKEROTOSIS 02/09/2015 SALGUERO DO, LADONNA K 788.1 DYSURIA 02/09/2015 SALGUERO DO, LADONNA K 789.02 ABDOMINAL PAIN LEFT UPPER QUADRANT 02/09/2015 MADL FLEET ASSISTANT, ETELVINA L 735.4 HAMMER TOE (ACQUIRED) 02/09/2015 [...] LEON MD Ot 414.01 CORONARY ATHEROSCLEROSIS OF [place] CORON 02/20/2015 QUE LEON MD Ot 458.0 ORTHOSTATIC HYPOTENSION 02/20/2015 QUE LEON MD Ot 584.9 ACUTE RENAL FAILURE, UNSPECIFIED 02/20/2015 QUE LEON MD Ot V15.88 HISTORY OF FALL 02/27/2015 ETELVINA LEONARD APRN L 593.9 UNSPECIFIED DISORDER OF KIDNEY AND URETER 03/01/2015 ETELVINA LEONARD L SIGN CARPENTER Ot 414.00 03/01/2015 ETELVINA LEONARD L SIGN CARPENTER Ot 780.2 03/01/2015 ETELVINA LEONARD L SIGN CARPENTER Ot V45.82 03/26/2015 Ot 786.09 03/26/2015 Ot [...] Garcia Ot V74.8 03/26/2015 BAIMA, KYLAH L SIGN CARPENTER Ot 396.3 03/26/2015 BAIMA, KYLAH L SIGN CARPENTER Ot 397.0 03/26/2015 BAIMA, KYLAH L SIGN CARPENTER Ot 401.9 03/26/2015 BAIMA, KYLAH L SIGN CARPENTER Ot 414.00 03/26/2015 BAIMA, KYLAH L SIGN CARPENTER Ot 250.00 03/26/2015 BAIMA, KYLAH L SIGN CARPENTER Ot 272.4 03/26/2015 BAIMA, KYLAH L SIGN CARPENTER Ot 305.1 03/26/2015 BAIMA, KYLAH L SIGN CARPENTER Ot 401.9 03/26/2015 BAIMA, KYLAH L SIGN CARPENTER Ot 414.00 03/26/2015 BAIMA, KYLAH L SIGN CARPENTER Ot 424.90 03/26/2015 BAIMA, KYLAH L SIGN CARPENTER Ot 496 03/26/2015 TAMARA OLVERA, PATRICIA L Ot 996.78 03/26/2015 TAMARA OLVERA, PATRICIA L Ot V72.63 03/26/2015 TAMARA OLVERA, PATRICIA L Ot V72.81 03/26/2015 TAMARA OLVERA, PATRICIA L Ot V74.8 03/26/2015 KARYN OLVERA, BYRON Bruner Ot 272.4 03/26/2015 KARYN OLVERA, BYRON M Ot 338.29 03/26/2015 KARYN OLVERA, BYRON M Ot 401.9 03/26/2015 BAIMA, KYLAH L SIGN CARPENTER Ot 414.00 03/26/2015 BAIMA, KYLAH L SIGN CARPENTER Ot 429.3 03/26/2015 SHANA OLVERA, ALVIN Bruner Ot V72.84 03/26/2015 BAIMA, KYLAH L SIGN CARPENTER Ot 272.4 03/26/2015 SHANA OLVERA, ALVIN M Ot V72.84 03/26/2015 KOFI OLVERA FACC, ALI FACP CCDS Ot 272.4 03/26/2015 KOFI OLVERA FACC, ALI FACP CCDS Ot 414.00 03/26/2015 KOFI OLVERA FACC, ALI FACP CCDS Ot 414.8 03/26/2015 KOFI OLVERA FACC, ALI FACP CCDS Ot 458.9 03/26/2015 KOFI OLVERA FACC, ALI FACP CCDS Ot 780.4 03/26/2015 MADL, ETELVINA L SIGN CARPENTER Ot 414.00 03/26/2015 MADL, ETELVINA L SIGN CARPENTER Ot 780.2 03/26/2015 MADL, ETELVINA L SIGN CARPENTER Ot V45.82 03/26/2015 BAIMA, KYLAH L SIGN CARPENTER Ot 272.4 03/26/2015 BAIMA, KYLAH L SIGN CARPENTER Ot 276.9 03/26/2015 BAIMA, KYLAH L SIGN CARPENTER Ot 401.9 03/26/2015 KYLAH CREWS SIGN CARPENTER Ot 414.00 03/26/2015 GELLENDER DO, BILL Garcia Ot 250.00 03/26/2015 GELLENDER DO, BILL A Ot 272.4 03/26/2015 GELLENDER DO, BILL A Ot 414.00 04/05/2015 BAIKYLAH ABAD SIGN CARPENTER Ot 272.4 04/05/2015 BAIMA, KYLAH L SIGN CARPENTER Ot 276.9 04/05/2015 BAIMA, KYLAH L SIGN CARPENTER Ot 401.9 04/05/2015 BAIJENNIFFER, KYLAH Goodman SIGN CARPENTER Ot 414.00 04/05/2015 GELLENDER DO, BILL Garcia Ot 250.00 04/05/2015 GELLENDER DO, BILL Garcia Ot 272.4 04/05/2015 GELLENDER DO, BILL Garcia Ot 414.00 04/06/2015 MADLETELVINA SIGN CARPENTER Ot 414.00 04/06/2015 MADL, ETELVINA Goodman SIGN CARPENTER Ot 780.2 04/06/2015 MADL, ETELVINA Goodman SIGN CARPENTER Ot V45.82 05/22/2015 GELLENDER DO, BILL Garcia [...] CCDS Ot 530.81 07/16/2015 QURESHI, PETER J FLEET ASSISTANT Ot 916.0 ABRASION HIP LEG 07/16/2015 THOMPSON QURESHI FLEET ASSISTANT Ot 923.10 CONTUSION OF FOREARM 07/16/2015 THOMPSON QURESHI FLEET ASSISTANT Ot 959.7 LOWER LEG INJURY NOS 07/16/2015 THOMPSON QURESHI FLEET ASSISTANT Ot E000.8 OTHER EXTERNAL CAUSE STATUS 07/16/2015 THOMPSON QURESHI FLEET ASSISTANT Ot E849.6 ACCIDENT IN PUBLIC BLDG 07/16/2015 THOMPSON QURESHI FLEET ASSISTANT Ot E888.9 FALL NOS 07/23/2015 AMELIALENDER DO, [...] BAKARI OLVERA, EDUARDO A Ot 788.30 09/13/2015 BAKAIR OLVERA, EDUARDO A Ot V72.63 09/13/2015 BAKARI OLVERA, EDUARDO A Ot V74.8 09/13/2015 BAIMA, KYLAH L SIGN CARPENTER Ot 396.3 09/13/2015 BAIMA, KYLAH L SIGN CARPENTER Ot 397.0 09/13/2015 BAIMA, KYLAH L SIGN CARPENTER Ot 401.9 09/13/2015 BAIMA, KYLAH L SIGN CARPENTER Ot 414.00 09/13/2015 BAIMA, KYLAH L SIGN CARPENTER Ot 250.00 09/13/2015 BAIMA, KYLAH L SIGN CARPENTER Ot 272.4 09/13/2015 BAIMA, KYLAH L SIGN CARPENTER Ot 305.1 09/13/2015 BAIMA, KYLAH L SIGN CARPENTER Ot 401.9 09/13/2015 BAIMA, KYLAH L SIGN CARPENTER Ot 414.00 09/13/2015 BAIMA, KYLAH L SIGN CARPENTER Ot 424.90 09/13/2015 BAIMA, KYLAH L SIGN CARPENTER Ot 496 09/13/2015 TAMARA OLVERA, PATRICIA L Ot 996.78 09/13/2015 TAMARA OLVERA, PATRICIA L Ot V72.63 09/13/2015 TAMARA OLVERA, PATRICIA L Ot V72.81 09/13/2015 TAMARA OLVERA, PATRICIA L Ot V74.8 09/13/2015 KARYN OLVERA, BYRON Bruner Ot 272.4 09/13/2015 KARYN OLVERA, BYRON Bruner Ot 338.29 09/13/2015 BYRON BOSS MD Ot 401.9 09/13/2015 BAIMAKYLAH L SIGN CARPENTER Ot 414.00 09/13/2015 BAIMA, KYLAH L SIGN CARPENTER Ot 429.3 09/13/2015 SHANA OLVERA, ALVIN Bruner Ot V72.84 09/13/2015 BAIMA, KYLAH L SIGN CARPENTER Ot 272.4 09/13/2015 SHANA OLVERA, ALVIN M Ot V72.84 09/13/2015 KOFI OLVERA FACC, ALI FACP CCDS Ot 272.4 09/13/2015 KOFI OLVERA FACC, ALI FACP CCDS Ot 414.00 09/13/2015 KOFI OLVERA FACC, ALI FACP CCDS Ot 414.8 09/13/2015 KOFI OLVERA FACC, ALI FACP CCDS Ot 458.9 09/13/2015 KOFI OLVERA FACC, ALI FACP CCDS Ot 780.4 09/13/2015 MADL, ETELVINA L SIGN CARPENTER Ot 414.00 09/13/2015 MADL, ETELVINA L SIGN CARPENTER Ot 780.2 09/13/2015 MADL, ETELVINA L SIGN CARPENTER Ot V45.82 09/13/2015 BAIMA, KYLAH L SIGN CARPENTER Ot 272.4 09/13/2015 BAIMA, KYLAH L SIGN CARPENTER Ot 276.9 09/13/2015 BAIMA, KYLAH L SIGN CARPENTER Ot 401.9 09/13/2015 BAIMA, KYLAH L SIGN CARPENTER Ot 414.00 09/13/2015 GELLENDER DO, BILL A [...] FACP CCDS Ot 305.1 09/13/2015 KOFI OLVERA [facility], ALI FACP CCDS Ot 401.9 09/13/2015 KOFI OLVERA FAC, ALI FACP CCDS Ot 414.00 09/13/2015 KOFI OLVERA FAC, ALI FACP CCDS Ot 447.72 09/13/2015 KOFI OLVERA FAC, ALI FACP CCDS Ot 458.9 09/13/2015 KOFI OLVERA FAC, ALI FACP CCDS Ot 496 09/13/2015 KOFI OLVERA [facility], ALI FACP CCDS Ot 530.81 09/13/2015 GELLENDER DO, BILL Garcia Ot 250.00 09/13/2015 GELLENDER DO, BILL Garcia Ot 959.7 09/13/2015 GELLENDER , BILL Garcia Ot E000.8 09/13/2015 GELLENDER , BILL Garcia Ot E928.9 09/25/2015 KYLAH CREWS SIGN CARPENTER Ot E78.5 09/25/2015 KYLAH CREWS SIGN CARPENTER Ot I25.9 10/07/2015 JESSIE OLVERA, BETTINA Nation [...] 10/07/2015 JESSIE OLVERA, BETTINA Nation Ot Z79.4 LONGTERM (CURRENT) USE OF INSULIN 10/12/2015 GELLENBARRY, BILL [...] FX OF FOURTH METATARSAL BONE, [place] 03/05/2016 IENS REYNOSO MD, Ot W01.0XXA FALL SAME LEV [...] 03/09/2016 MARLA EVERETT MD Ot Z79.899 OTHER A AUXILIARY (CURRENT) DRUG THERAPY 03/11/2016 MARLA EVERETT MD [...] CCDS Ot I25.10 ATHSCL HEART DISEASE OF [place] CORONARY 03/21/2016 KOFI OLVERA FAC, ALI FACP CCDS Ot E78.5 HYPERLIPIDEMIA, UNSPECIFIED 03/21/2016 KOFI OLVERA FAC, ALI FACP CCDS Ot I25.10 ATHSCL HEART DISEASE OF [place] CORONARY 04/02/2016 SHANA OLVERA, ALVIN Bruner Ot [...] Ot K29.70 GASTRITIS, UNSPECIFIED, WITHOUT BLEEDING 04/07/2016 SAHNA OLVERA, ALVIN Bruner Ot K44.9 DIAPHRAGMATIC HERNIA [...] KEERTHI 12/30/2016 Ot 414.01 CORONARY ATHEROSCLEROSIS OF [place] CORON 12/30/2016 Ot 786.50 CHEST PAIN NOS [...] Garcia Ot V72.63 PRE-PROCEDURAL LABORATORY EXAMINATION 12/30/2016 EUDARDO VILLEGAS MD Ot V74.8 SCREEN-BACTERIAL DIS NEC 12/30/2016 BAKARI OLVERA, EDUARDO Garcia Ot 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 12/30/2016 BAKARI OLVERA, EDUARDO Garcia Ot 788.30 UNSPECIFIED URINARY INCONTINENCE 12/30/2016 BAKARI OLVERA, EDUARDO Garcia Ot V72.63 PRE-PROCEDURAL LABORATORY EXAMINATION 12/30/2016 EDUARDO VILLEGAS MD Ot V74.8 SCREEN-BACTERIAL DIS NEC 12/30/2016 ELEONORA, KYLAH L SIGN CARPENTER Ot 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 12/30/2016 ELEONORA, KYLAH L SIGN CARPENTER Ot 397.0 TRICUSPID VALVE DISEASE 12/30/2016 ELEONORA KYLAH L SIGN CARPENTER Ot 401.9 HYPERTENSION NOS 12/30/2016 PERLAMA KYLAH L SIGN CARPENTER Ot 414.00 CORON ATHEROSCLER NOS TYPE VESSEL, NATIV 12/30/2016 ELEONORA KYLAH L SIGN CARPENTER Ot 250.00 DIAB MELVA WO COMPL, TYPE II OR UNSPEC TY 12/30/2016 BAIMA KYLAH L SIGN CARPENTER Ot 272.4 HYPERLIPIDEMIA NEC/NOS 12/30/2016 SCARLETT CREWSHER L SIGN CARPENTER Ot 305.1 TOBACCO USE DISORDER 12/30/2016 BAIJENNIFFER, KYLAH L SIGN CARPENTER Ot 401.9 HYPERTENSION NOS 12/30/2016 BAIMA, KYLAH L SIGN CARPENTER Ot 414.00 CORON ATHEROSCLER NOS TYPE VESSEL, NATIV 12/30/2016 BAIJENNIFFER, KYLAH L SIGN CARPENTER Ot 424.90 ENDOCARDITIS NOS 12/30/2016 PERLAJENNIFFER KYLAH L SIGN CARPENTER Ot 496 CHR AIRWAY OBSTRUCT NEC 12/30/2016 PATRICIA MCDONALD MD Ot 996.78 OTH COMP DUE TO OTH INTRNL ORTHPEDIC DEV 12/30/2016 PATRICIA MCDONALD MD Ot V72.63 PRE-PROCEDURAL LABORATORY EXAMINATION 12/30/2016 PATRICIA MCDONALD MD Ot V72.81 [id number] CARDIOVASCULAR 12/30/2016 PATRICIA MCDONALD MD Ot V74.8 SCREEN-BACTERIAL DIS NEC 12/30/2016 BYRON BOSS MD Ot 272.4 HYPERLIPIDEMIA NEC/NOS 12/30/2016 BYRON BOSS MD Ot 338.29 OTHER CHRONIC PAIN 12/30/2016 BYRON BOSS MD Ot 401.9 HYPERTENSION NOS 12/30/2016 PERLAJENNIFFER, KYLAH L SIGN CARPENTER Ot 414.00 CORON ATHEROSCLER NOS TYPE VESSEL, NATIV 12/30/2016 PERLAJENNIFFER KYLAH L SIGN CARPENTER Ot 429.3 CARDIOMEGALY 12/30/2016 ALVIN SALDANA MD Ot V72.84 EXAM PRE-OPERATIVE NOS 12/30/2016 ELEONORA KYLAH L SIGN CARPENTER Ot 272.4 HYPERLIPIDEMIA NEC/NOS 12/30/2016 ALVIN SALDANA MD Ot V72.84 EXAM PRE-OPERATIVE NOS 12/30/2016 KOFI OLVERA FACTj, ALI FACP CCDS Ot 272.4 HYPERLIPIDEMIA NEC/NOS 12/30/2016 KOFI LOVERA FACC, ALI FACP CCDS Ot 414.00 CORON ATHEROSCLER NOS TYPE VESSEL, NATIV 12/30/2016 KOFI HERNÁNDEZC, ALI FACP CCDS Ot 414.8 CHR ISCHEMIC HRT DIS NEC 12/30/2016 KOFI HERNÁNDEZC, ALI FACP CCDS Ot 458.9 HYPOTENSION NOS 12/30/2016 KOFI OLVREA FACC, ALI FACP CCDS Ot 780.4 DIZZINESS AND GIDDINESS 12/30/2016 BAIMA, KYLAH L SIGN CARPENTER Ot E78.5 HYPERLIPIDEMIA, UNSPECIFIED 12/30/2016 KYLAH CREWS SIGN CARPENTER Ot I25.9 CHRONIC ISCHEMIC HEART DISEASE, UNSPECIF 12/30/2016 ETELVINA LEONARD SIGN CARPENTER Ot 414.00 CORON ATHEROSCLER NOS TYPE VESSEL, NATIV 12/30/2016 ETELVINA LEONARD SIGN CARPENTER Ot 780.2 SYNCOPE AND COLLAPSE 12/30/2016 ETELVINA LEONARD SIGN CARPENTER Ot V45.82 PERCUTANEOUS TRANSLUM CORON ANGIOPLASTY 12/30/2016 KYLAH CREWS SIGN CARPENTER Ot 272.4 HYPERLIPIDEMIA NEC/NOS 12/30/2016 KYLAH CREWS SIGN CARPENTER Ot 276.9 ELECTROLYT/FLUID DIS NEC 12/30/2016 KYLAH CREWS SIGN CARPENTER Ot 401.9 HYPERTENSION NOS 12/30/2016 KYLAH CREWS SIGN CARPENTER Ot 414.00 CORON ATHEROSCLER NOS TYPE VESSEL, [...] 447.72 ABDOMINAL AORTIC ECTASIA 12/30/2016 KOFI OLVERA [facility], [facility] CCDS Ot 458.9 HYPOTENSION NOS 12/30/2016 KOFI OLVERA [facility], ALI FACP CCDS Ot 496 CHR AIRWAY OBSTRUCT NEC 12/30/2016 KOFI OLVERA [facility], ALI FACP CCDS Ot 530.81 ESOPHAGEAL REFLUX 12/30/2016 KYLAH CREWS SIGN CARPENTER Ot I71.4 ABDOMINAL AORTIC ANEURYSM, WITHOUT RUPTU [...] INFECTION, SITE NOT SPECIF 12/30/2016 KOFI OLVERA [facility], [facility] CCDS Ot E78.5 HYPERLIPIDEMIA, UNSPECIFIED 12/30/2016 KOFI OLVERA [facility], [facility] CCDS Ot I25.10 ATHSCL HEART DISEASE OF [place] CORONARY 01/01/2017 ADELFO [place] SIGN CARPENTER Ot I71.4 ABDOMINAL AORTIC ANEURYSM, WITHOUT RUPTU 01/01/2017 ADELFO [place] SIGN CARPENTER Ot I71.4 ABDOMINAL AORTIC ANEURYSM, WITHOUT RUPTU 01/01/2017 ADELFO [place] SIGN CARPENTER Ot I71.4 ABDOMINAL AORTIC ANEURYSM, WITHOUT RUPTU 01/21/2017 ADELFO [place] SIGN CARPENTER Ot I71.4 ABDOMINAL AORTIC ANEURYSM, WITHOUT RUPTU [...] SCREEN-BACTERIAL DIS NEC 11/26/2017 BAIMA, KYLAH L SIGN CARPENTER Ot 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 11/26/2017 BAIMA, KYLAH L SIGN CARPENTER Ot 397.0 TRICUSPID VALVE DISEASE 11/26/2017 BAIMA, KYLAH L SIGN CARPENTER Ot 401.9 HYPERTENSION NOS 11/26/2017 BAIMA, KYLAH L SIGN CARPENTER Ot 414.00 CORON ATHEROSCLER NOS TYPE VESSEL, NATIV 11/26/2017 BAIMA, KYLAH L SIGN CARPENTER Ot 250.00 DIAB MELVA WO COMPL, TYPE II OR UNSPEC TY 11/26/2017 BAIMA, KYLAH L SIGN CARPENTER Ot 272.4 HYPERLIPIDEMIA NEC/NOS 11/26/2017 BAIMA, KYLAH L SIGN CARPENTER Ot 305.1 TOBACCO USE DISORDER 11/26/2017 BAIMA, KYLAH L SIGN CARPENTER Ot 401.9 HYPERTENSION NOS 11/26/2017 BAIMA, KYLAH L SIGN CARPENTER Ot 414.00 CORON ATHEROSCLER NOS TYPE VESSEL, NATIV 11/26/2017 BAIMA, KYLAH L SIGN CARPENTER Ot 424.90 ENDOCARDITIS NOS 11/26/2017 BAIMA, KYLAH L SIGN CARPENTER Ot 496 CHR AIRWAY OBSTRUCT NEC 11/26/2017 PATRICIA MCDONALD MD Ot 996.78 OTH COMP DUE TO OTH INTRNL ORTHPEDIC DEV 11/26/2017 PATRICIA MCDONALD MD Ot V72.63 PRE-PROCEDURAL LABORATORY EXAMINATION 11/26/2017 PATRICIA MCDONALD MD, Ot V72.81 RJRL-ITT-WHIVKMSEL CARDIOVASCULAR 11/26/2017 PATRICIA MCDONALD MD, Ot V74.8 SCREEN-BACTERIAL DIS NEC 11/26/2017 BYRON BOSS MD Ot 272.4 HYPERLIPIDEMIA NEC/NOS 11/26/2017 KARYN OLVERA, BYRON Bruner Ot 338.29 OTHER CHRONIC PAIN 11/26/2017 KARYN OLVERA, BYRON Bruner Ot 401.9 HYPERTENSION NOS 11/26/2017 BAIMA, KYLAH L SIGN CARPENTER Ot 414.00 CORON ATHEROSCLER NOS TYPE VESSEL, NATIV 11/26/2017 BAIMA, KYLAH L SIGN CARPENTER Ot 429.3 CARDIOMEGALY 11/26/2017 SHANA OLVERA, ALVIN Bruner Ot V72.84 EXAM PRE-OPERATIVE NOS 11/26/2017 BAIMA, KYLAH L SIGN CARPENTER Ot 272.4 HYPERLIPIDEMIA NEC/NOS 11/26/2017 SHANA OLVERA, [...] DIZZINESS AND GIDDINESS 11/26/2017 BAIMA, KYLAH L SIGN CARPENTER Ot E78.5 HYPERLIPIDEMIA, UNSPECIFIED 11/26/2017 BAIMA, KYLAH L SIGN CARPENTER Ot I25.9 CHRONIC ISCHEMIC HEART DISEASE, UNSPECIF 11/26/2017 MADL, ETELVINA L SIGN CARPENTER Ot 414.00 CORON ATHEROSCLER NOS TYPE VESSEL, NATIV 11/26/2017 MADL, ETELVINA L SIGN CARPENTER Ot 780.2 SYNCOPE AND COLLAPSE 11/26/2017 MADL, ETELVINA L SIGN CARPENTER Ot V45.82 PERCUTANEOUS TRANSLUM CORON ANGIOPLASTY 11/26/2017 BAIMA, KYLAH L SIGN CARPENTER Ot 272.4 HYPERLIPIDEMIA NEC/NOS 11/26/2017 BAIMA, KYLAH L SIGN CARPENTER Ot 276.9 ELECTROLYT/FLUID DIS NEC 11/26/2017 BAIMA, KYLAH L SIGN CARPENTER Ot 401.9 HYPERTENSION NOS 11/26/2017 BAIMA, KYLAH L SIGN CARPENTER Ot 414.00 CORON ATHEROSCLER NOS TYPE VESSEL, [...] Ot 530.81 ESOPHAGEAL REFLUX 11/26/2017 KYLAH CREWS SIGN CARPENTER Ot I71.4 ABDOMINAL AORTIC ANEURYSM, WITHOUT RUPTU [...] CCDS Ot I25.10 ATHSCL HEART DISEASE OF [place] CORONARY 11/26/2017 ADELFO [place] SIGN CARPENTER Ot I71.4 ABDOMINAL AORTIC ANEURYSM, WITHOUT RUPTU [...] CCDS Ot I25.10 ATHSCL HEART DISEASE OF [place] CORONARY 12/01/2017 KOFI OLVERA FACC, ALI FACP [...] CCDS Ot I25.10 ATHSCL HEART DISEASE OF [place] CORONARY 12/03/2017 KOFI OLVERA FACC, ALI FACP [...] CCDS Ot I25.10 ATHSCL HEART DISEASE OF [place] CORONARY 12/10/2017 KOFI OLVERA FACC, ALI FACP CCDS Ot I25.5 ISCHEMIC CARDIOMYOPATHY 12/10/2017 KOFI OLVERA FACC, ALI FACP CCDS Ot I73.9 PERIPHERAL VASCULAR DISEASE, UNSPECIFIED 12/10/2017 KOFI OLVEAR FACC, ALI FACP CCDS Ot J43.8 OTHER [...] CCDS Ot I25.10 ATHSCL HEART DISEASE OF [place] CORONARY 12/17/2017 KOFI OLVERA FACC, ALI FACP CCDS Ot I25.5 ISCHEMIC CARDIOMYOPATHY 12/17/2017 KOFI HERNÁNDEZC, ALI FACP CCDS Ot I73.9 PERIPHERAL VASCULAR DISEASE, UNSPECIFIED 12/17/2017 KOFI HERNÁNDEZC, ALI FACP CCDS Ot J43.8 OTHER EMPHYSEMA 12/17/2017 KOFI HERNÁNDEZC, ALI FACP CCDS Ot R06.02 SHORTNESS OF BREATH 12/17/2017 KOFI HERNÁNDEZC, ALI FACP CCDS Ot Z72.0 TOBACCO USE 12/22/2017 KYLAH CREWS SIGN CARPENTER Ot I25.5 ISCHEMIC CARDIOMYOPATHY 12/28/2017 KOFI OLVERA FACC, ALI FACP CCDS Ot E11.9 TYPE 2 DIABETES MELLITUS WITHOUT COMPLIC 12/28/2017 KOFI MD FACC, ALI FACP CCDS Ot I10 ESSENTIAL (PRIMARY) HYPERTENSION 12/28/2017 KOFI OLVERA FACC, ALI FACP CCDS Ot I25.10 ATHSCL HEART DISEASE OF [place] CORONARY 12/28/2017 KOFI OLVERA FACC, ALI FACP [...] CCDS Ot I25.10 ATHSCL HEART DISEASE OF [place] CORONARY 12/30/2017 KOFI OLVERA FAC, ALI FACP CCDS Ot I25.5 ISCHEMIC CARDIOMYOPATHY 12/30/2017 KOFI OLVERA FAC, ALI FACP CCDS Ot I65.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 AND STENOSIS OF BILATERAL CALVERT 12/30/2017 KOFI OLVERA FACC, ALI FACP CCDS Ot I73.9 PERIPHERAL VASCULAR DISEASE, UNSPECIFIED 12/30/2017 KOFI OLVERA FACC, ALI FACP CCDS Ot R06.02 SHORTNESS OF BREATH 12/30/2017 KOFI OLVERA [facility], ALI FACP CCDS Ot Z72.0 TOBACCO USE [...] INITIAL ENCOUNTER 01/07/2018 HARDEEP DORANTES Ot Z79.84 A AUXILIARY (CURRENT) USE OF ORAL HYPOGLYC 01/07/2018 HARDEEP [...] CCDS Ot I25.10 ATHSCL HEART DISEASE OF [place] CORONARY 01/08/2018 BRADLY KIRBY MD, FACC FACP [...] INITIAL ENCOUNTER 01/11/2018 HARDEEP DORANTES Ot Z79.84 LONGTERM (CURRENT) USE OF ORAL HYPOGLYC 01/11/2018 HARDEEP [...] INITIAL ENCOUNTER 01/13/2018 HARDEEP DORANTES Ot Z79.84 A AUXILIARY (CURRENT) USE OF ORAL HYPOGLYC 01/13/2018 HARDEEP [...] MD Ot I25.10 ATHSCL HEART DISEASE OF [place] CORONARY 02/15/2018 MARLA EVERETT MD, Ot J43.9 EMPHYSEMA, UNSPECIFIED 02/15/2018 MARAL EVERETT MD, Ot K21.9 GASTRO-ESOPHAGEAL REFLUX DISEASE WITHOUT 02/15/2018 MARLA EVERETT MD Ot R07.89 OTHER CHEST PAIN 02/15/2018 MARLA EVERETT MD, Ot Z79.82 A AUXILIARY (CURRENT) USE OF ASPIRIN 02/15/2018 MARLA EVERETT MD, Ot Z79.84 A AUXILIARY (CURRENT) USE OF ORAL HYPOGLYC 02/15/2018 MARLA [...] MD Ot I25.10 ATHSCL HEART DISEASE OF [place] CORONARY 02/17/2018 MARLA EVERETT MD, Ot J43.9 EMPHYSEMA, UNSPECIFIED 02/17/2018 MARLA EVERETT MD, Ot K21.9 GASTRO-ESOPHAGEAL REFLUX DISEASE WITHOUT 02/17/2018 MARLA EVERETT MD Ot R07.89 OTHER CHEST PAIN 02/17/2018 MARLA EVERETT MD Ot Z79.82 A AUXILIARY (CURRENT) USE OF ASPIRIN 02/17/2018 MARLA EVERETT MD Ot Z79.84 LONGTERM (CURRENT) USE OF ORAL HYPOGLYC 02/17/2018 MARLA [...] PURE HYPERCHOLESTEROLEMIA, UNSPECIFIED 02/21/2018 HUANG DO FELICIA Adriana Ot F17.210 NICOTINE DEPENDENCE, CIGARETTES, UNCOMPL 02/21/2018 TRENTON ENCINAS DOA Adriana Ot F32.9 MAJOR DEPRESSIVE DISORDER, SINGLE EPISOD 02/21/2018 HUANG TRENTON PRAKASHA Adriana Ot F41.9 ANXIETY DISORDER, UNSPECIFIED 02/21/2018 HUANG TRENTON PRAKASHA K Ot G43.909 MIGRAINE, UNSP, NOT INTRACTABLE, WITHOUT 02/21/2018 HUANG PRAKASH FELICIA K Ot I10 ESSENTIAL (PRIMARY) HYPERTENSION 02/21/2018 HUANG TRENTON PRAKASHA K Ot I25.10 ATHSCL HEART DISEASE OF [place] CORONARY 02/21/2018 FELICIA ENCINAS DO Ot J43.9 EMPHYSEMA, UNSPECIFIED 02/21/2018 HUANG TRENTON PRAKASHA K Ot K21.9 GASTRO-ESOPHAGEAL REFLUX DISEASE WITHOUT 02/21/2018 HUANG TRENTON PRAKASHA K Ot N39.0 URINARY TRACT INFECTION, SITE NOT SPECIF 02/21/2018 FELICIA ENCINAS DO Ot R20.2 PARESTHESIA OF SKIN 02/21/2018 TRENTON ENCINAS DOA Adriana Ot R53.1 WEAKNESS 02/21/2018 HUANG TRENTON PRAKASHA Adriana Ot Z79.84 A AUXILIARY (CURRENT) USE OF ORAL HYPOGLYC 02/21/2018 FELICIA [...] Adriana Ot I25.10 ATHSCL HEART DISEASE OF [place] CORONARY 02/23/2018 HUANG DO FELICIA Adriana Ot J43.9 EMPHYSEMA, UNSPECIFIED 02/23/2018 HUANG FELICIA Adriana Ot K21.9 GASTRO-ESOPHAGEAL REFLUX DISEASE WITHOUT 02/23/2018 HUANG FELICIA Adriana Ot N39.0 URINARY TRACT INFECTION, SITE NOT SPECIF 02/23/2018 HUANG PRAKASH FELICIA Adriana Ot R20.2 PARESTHESIA OF SKIN 02/23/2018 HUANG FELICIA Adriana Ot R53.1 WEAKNESS 02/23/2018 HUANG PRAKASH FELICIA Adriana Ot Z79.84 A AUXILIARY (CURRENT) USE OF ORAL HYPOGLYC 02/23/2018 HUANG [...] SCREEN-BACTERIAL DIS NEC 03/02/2018 BAIMA, KYLAH L SIGN CARPENTER Ot 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 03/02/2018 BAIMA, KYLAH L SIGN CARPENTER Ot 397.0 TRICUSPID VALVE DISEASE 03/02/2018 BAIMA, KYLAH L SIGN CARPENTER Ot 401.9 HYPERTENSION NOS 03/02/2018 BAIMA, KYLAH L SIGN CARPENTER Ot 414.00 CORON ATHEROSCLER NOS TYPE VESSEL, NATIV 03/02/2018 BAIMA, KYLAH L SIGN CARPENTER Ot 250.00 DIAB MELVA WO COMPL, TYPE II OR UNSPEC TY 03/02/2018 BAIMA, KYLAH L SIGN CARPENTER Ot 272.4 HYPERLIPIDEMIA NEC/NOS 03/02/2018 BAIMA, KYLAH L SIGN CARPENTER Ot 305.1 TOBACCO USE DISORDER 03/02/2018 BAIMA, KYLAH L SIGN CARPENTER Ot 401.9 HYPERTENSION NOS 03/02/2018 BAIMA, KYLAH L SIGN CARPENTER Ot 414.00 CORON ATHEROSCLER NOS TYPE VESSEL, NATIV 03/02/2018 BAIMA, KYLAH L SIGN CARPENTER Ot 424.90 ENDOCARDITIS NOS 03/02/2018 BAIMA, KYLAH L SIGN CARPENTER Ot 496 CHR AIRWAY OBSTRUCT NEC 03/02/2018 PATRICIA MCDONALD MD Ot 996.78 OTH COMP DUE TO OTH INTRNL ORTHPEDIC DEV 03/02/2018 PATRICIA MCDONALD MD Ot V72.63 PRE-PROCEDURAL LABORATORY EXAMINATION 03/02/2018 PATRICIA MCDONALD MD Ot V72.81 [id number] CARDIOVASCULAR 03/02/2018 PATRICIA MCDONALD MD Ot V74.8 SCREEN-BACTERIAL DIS NEC 03/02/2018 BYRON BOSS MD Ot 272.4 HYPERLIPIDEMIA NEC/NOS 03/02/2018 KARYN MD, BYRON M Ot 338.29 OTHER CHRONIC PAIN 03/02/2018 KARYN OLVERA, BYRON Bruner Ot 401.9 HYPERTENSION NOS 03/02/2018 BAIMA, KYLAH L SIGN CARPENTER Ot 414.00 CORON ATHEROSCLER NOS TYPE VESSEL, NATIV 03/02/2018 BAIMA, KYLAH L SIGN CARPENTER Ot 429.3 CARDIOMEGALY 03/02/2018 SHANA OLVERA, ALVIN Bruner Ot V72.84 EXAM PRE-OPERATIVE NOS 03/02/2018 BAIMA, KYLAH L SIGN CARPENTER Ot 272.4 HYPERLIPIDEMIA NEC/NOS 03/02/2018 SHANA OLVERA, [...] DIZZINESS AND GIDDINESS 03/02/2018 BAIMA, KYLAH L SIGN CARPENTER Ot E78.5 HYPERLIPIDEMIA, UNSPECIFIED 03/02/2018 BAIMA, KYLAH L SIGN CARPENTER Ot I25.9 CHRONIC ISCHEMIC HEART DISEASE, UNSPECIF 03/02/2018 MADL ETELVINA L SIGN CARPENTER Ot 414.00 CORON ATHEROSCLER NOS TYPE VESSEL, NATIV 03/02/2018 MADL ETELVINA L SIGN CARPENTER Ot 780.2 SYNCOPE AND COLLAPSE 03/02/2018 MADL, ETELVINA L SIGN CARPENTER Ot V45.82 PERCUTANEOUS TRANSLUM CORON ANGIOPLASTY 03/02/2018 BAIMA, KYLAH L SIGN CARPENTER Ot 272.4 HYPERLIPIDEMIA NEC/NOS 03/02/2018 BAIMA, KYLAH L SIGN CARPENTER Ot 276.9 ELECTROLYT/FLUID DIS NEC 03/02/2018 BAIMA, KYLAH L SIGN CARPENTER Ot 401.9 HYPERTENSION NOS 03/02/2018 BAIMA, KYLAH L SIGN CARPENTER Ot 414.00 CORON ATHEROSCLER NOS TYPE VESSEL, [...] Ot 530.81 ESOPHAGEAL REFLUX 03/02/2018 KYLAH CREWS SIGN CARPENTER Ot I71.4 ABDOMINAL AORTIC ANEURYSM, WITHOUT RUPTU [...] CCDS Ot I25.10 ATHSCL HEART DISEASE OF [place] CORONARY 03/02/2018 ADELFO [place] SIGN CARPENTER Ot I71.4 ABDOMINAL AORTIC ANEURYSM, WITHOUT RUPTU [...] CCDS Ot I25.10 ATHSCL HEART DISEASE OF [place] CORONARY 03/02/2018 KOFI OLVERA FACC, ALI FACP [...] CCDS Ot I25.10 ATHSCL HEART DISEASE OF [place] CORONARY 03/02/2018 KOFI OLVERA FACC, ALI FACP [...] CCDS Ot I25.10 ATHSCL HEART DISEASE OF [place] CORONARY 03/02/2018 KOFI OLVERA FACC, ALI FACP [...] CCDS Ot I25.10 ATHSCL HEART DISEASE OF [place] CORONARY 03/02/2018 KOFI OLVERA FAC, ALI FACP [...] 03/03/2018 LEONEL ORTIZ MD Ot Z79.899 OTHER A AUXILIARY (CURRENT) DRUG THERAPY 03/03/2018 LEONEL ORTIZ MD [...] 03/04/2018 LEONEL ORTIZ MD Ot Z79.899 OTHER LONGTERM (CURRENT) DRUG THERAPY 03/04/2018 LEONEL ORTIZ MD [...] CCDS Ot I25.10 ATHSCL HEART DISEASE OF [place] CORONARY 03/09/2018 KOFI OLVERA FACC, ALI FACP [...] ALI FACP CCDS Ot R00.2 PALPITATIONS 03/09/2018 KOIF OLVERA FACC, ALI FACP CCDS Ot R06.02 SHORTNESS OF BREATH 03/09/2018 KOFI OLVERA FACC, ALI FACP CCDS Ot R13.10 DYSPHAGIA, UNSPECIFIED 03/09/2018 KOFI OLVERA FACC, ALI FACP CCDS Ot Z79.82 A AUXILIARY (CURRENT) USE OF ASPIRIN 03/09/2018 KOFI OLVERA FACC, ALI FACP CCDS Ot Z79.84 LONGTERM (CURRENT) USE OF ORAL HYPOGLYC 03/09/2018 KOFI OLVERA FACC, ALI FACP CCDS Ot Z79.899 OTHER LONGTERM (CURRENT) DRUG THERAPY 03/09/2018 KOFI OLVERA FACC, [...] 03/10/2018 LEONEL ORTIZ MD Ot Z79.899 OTHER A AUXILIARY (CURRENT) DRUG THERAPY 03/10/2018 LEONEL ORTIZ MD, [...] CCDS Ot I25.10 ATHSCL HEART DISEASE OF [place] CORONARY 03/10/2018 KOFI OLVERA FACC, ALI FACP [...] OLVERA FACC, ALI FACP CCDS Ot Z79.82 LONGTERM (CURRENT) USE OF ASPIRIN 03/10/2018 KOFI OLVERA FACC, BRADLY FACP CCDS Ot Z79.84 A AUXILIARY (CURRENT) USE OF ORAL HYPOGLYC 03/10/2018 KOFI OLVERA FACC, BRADLY FACP CCDS Ot Z79.899 OTHER LONGTERM (CURRENT) DRUG THERAPY 03/10/2018 KOFI OLVERA FACC, [...] Ot F41.9 ANXIETY DISORDER, UNSPECIFIED 03/10/2018 KOFI OLEVRA FACC, ALI FACP CCDS Ot I25.10 ATHSCL HEART DISEASE OF [place] CORONARY 03/10/2018 KOFI OLVERA FACC, ALI FACP [...] OLVERA FACC, ALI FACP CCDS Ot Z79.82 A AUXILIARY (CURRENT) USE OF ASPIRIN 03/10/2018 KOFI OLVERA FACC, ALI FACP CCDS Ot Z79.84 A AUXILIARY (CURRENT) USE OF ORAL HYPOGLYC 03/10/2018 KOFI OLVERA FACC, ALI FACP CCDS Ot Z79.899 OTHER LONGTERM (CURRENT) DRUG THERAPY 03/10/2018 KOFI OLVERA FACC, [...] V74.8 SCREEN-BACTERIAL DIS NEC 04/08/2018 KYLAH CREWS SIGN CARPENTER Ot 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 04/08/2018 KYLAH CREWS L SIGN CARPENTER Ot 397.0 TRICUSPID VALVE DISEASE 04/08/2018 KYLAH CREWS L SIGN CARPENTER Ot 401.9 HYPERTENSION NOS 04/08/2018 SCARLETT CREWSHER L SIGN CARPENTER Ot 414.00 CORON ATHEROSCLER NOS TYPE VESSEL, NATIV 04/08/2018 BAIMA, KYLAH L SIGN CARPENTER Ot 250.00 DIAB MELVA WO COMPL, TYPE II OR UNSPEC TY 04/08/2018 ELEONORA, KYLAH L SIGN CARPENTER Ot 272.4 HYPERLIPIDEMIA NEC/NOS 04/08/2018 BAIJENNIFFER, KYLAH L SIGN CARPENTER Ot 305.1 TOBACCO USE DISORDER 04/08/2018 ELEONORA, KYLAH L SIGN CARPENTER Ot 401.9 HYPERTENSION NOS 04/08/2018 BAIJENNIFFER, KYLAH L SIGN CARPENTER Ot 414.00 CORON ATHEROSCLER NOS TYPE VESSEL, NATIV 04/08/2018 ELEONORA, KYLAH L SIGN CARPENTER Ot 424.90 ENDOCARDITIS NOS 04/08/2018 BAIJENNIFFER, KYLAH L SIGN CARPENTER Ot 496 CHR AIRWAY OBSTRUCT NEC 04/08/2018 PATRICIA MCDONALD MD Ot 996.78 OTH COMP DUE TO OTH INTRNL ORTHPEDIC DEV 04/08/2018 PATRICIA MCDONALD MD Ot V72.63 PRE-PROCEDURAL LABORATORY EXAMINATION 04/08/2018 PATRICIA MCDONALD MD Ot V72.81 [id number] CARDIOVASCULAR 04/08/2018 PATRICIA MCDONALD MD Ot V74.8 SCREEN-BACTERIAL DIS NEC 04/08/2018 BYRON BOSS MD Ot 272.4 HYPERLIPIDEMIA NEC/NOS 04/08/2018 BYRON BOSS MD Ot 338.29 OTHER CHRONIC PAIN 04/08/2018 BYRON BOSS MD Ot 401.9 HYPERTENSION NOS 04/08/2018 ELEONORA, KYLAH L SIGN CARPENTER Ot 414.00 CORON ATHEROSCLER NOS TYPE VESSEL, NATIV 04/08/2018 PERLAJENNIFFER KYLAH L SIGN CARPENTER Ot 429.3 CARDIOMEGALY 04/08/2018 ALVIN SALDANA MD Ot V72.84 EXAM PRE-OPERATIVE NOS 04/08/2018 BAIMA, KYLAH L SIGN CARPENTER Ot 272.4 HYPERLIPIDEMIA NEC/NOS 04/08/2018 ALVIN SALDANA [...] 780.4 DIZZINESS AND GIDDINESS 04/08/2018 BAIKYLAH ABAD SIGN CARPENTER Ot E78.5 HYPERLIPIDEMIA, UNSPECIFIED 04/08/2018 BAIMAKYLAH L SIGN CARPENTER Ot I25.9 CHRONIC ISCHEMIC HEART DISEASE, UNSPECIF 04/08/2018 MADL, ETELVINA L SIGN CARPENTER Ot 414.00 CORON ATHEROSCLER NOS TYPE VESSEL, NATIV 04/08/2018 MADL, ETELVINA L SIGN CARPENTER Ot 780.2 SYNCOPE AND COLLAPSE 04/08/2018 MADL, ETELVINA Goodman SIGN CARPENTER Ot V45.82 PERCUTANEOUS TRANSLUM CORON ANGIOPLASTY 04/08/2018 BAIKYLAH ABAD L SIGN CARPENTER Ot 272.4 HYPERLIPIDEMIA NEC/NOS 04/08/2018 BAIKYLAH ABDA L SIGN CARPENTER Ot 276.9 ELECTROLYT/FLUID DIS NEC 04/08/2018 BAIKYLAH ABAD L SIGN CARPENTER Ot 401.9 HYPERTENSION NOS 04/08/2018 BAIKYLAH ABAD L SIGN CARPENTER Ot 414.00 CORON ATHEROSCLER NOS TYPE VESSEL, [...] TOBACCO USE DISORDER 04/08/2018 KOFI OLVERA FACC, BRADLY FACP CCDS Ot 401.9 HYPERTENSION NOS 04/08/2018 [...] Ot 530.81 ESOPHAGEAL REFLUX 04/08/2018 KYLAH CREWS SIGN CARPENTER Ot I71.4 ABDOMINAL AORTIC ANEURYSM, WITHOUT RUPTU 04/08/2018 BRYN PRAKASH, BILL Garcia Ot 250.00 DIAB MELVA WO COMPL, TYPE II OR UNSPEC TY 04/08/2018 BRYN PRAKASHBILL Ot 959.7 LOWER LEG INJURY NOS 04/08/2018 BRYN PRAKASHBILL Ot E000.8 OTHER EXTERNAL CAUSE STATUS 04/08/2018 BRYN PRAKASHBILL Ot E928.9 ACCIDENT NOS 04/08/2018 [facility] Ot N39.0 URINARY TRACT INFECTION, SITE NOT SPECIF 04/08/2018 KOFI OLVERA FACC, BRADLY FACP CCDS Ot E78.5 HYPERLIPIDEMIA, UNSPECIFIED 04/08/2018 KOFI OLVERA FACC, BRADLY FACP CCDS Ot I25.10 ATHSCL HEART DISEASE OF [place] CORONARY 04/08/2018 ADELFO [place] SIGN CARPENTER Ot I71.4 ABDOMINAL AORTIC ANEURYSM, WITHOUT RUPTU [...] CCDS Ot I25.10 ATHSCL HEART DISEASE OF [place] CORONARY 04/08/2018 KOFI OLVERA FACC, BRADLY FACP [...] CCDS Ot I25.10 ATHSCL HEART DISEASE OF [place] CORONARY 04/08/2018 KOFI OLVERA FACC, ALI FACP [...] CCDS Ot I25.10 ATHSCL HEART DISEASE OF [place] CORONARY 04/08/2018 KOFI OLVERA FACC, ALI FACP CCDS Ot I25.5 ISCHEMIC CARDIOMYOPATHY 04/08/2018 KOFI OLVERA FACC, ALI FACP CCDS Ot I73.9 PERIPHERAL VASCULAR DISEASE, UNSPECIFIED 04/08/2018 KOFI OLVERA FACC, ALI FACP CCDS Ot J43.8 OTHER EMPHYSEMA 04/08/2018 KOFI OLVERA FACC, ALI FACP CCDS Ot R06.02 SHORTNESS OF BREATH 04/08/2018 KOFI OLVERA FACC, ALI FACP CCDS Ot Z72.0 TOBACCO USE 04/08/2018 KYLAH CREWS SIGN CARPENTER Ot I25.5 ISCHEMIC CARDIOMYOPATHY 04/08/2018 KOFI OLVERA FACC, ALI FACP CCDS Ot E11.9 TYPE 2 DIABETES MELLITUS WITHOUT COMPLIC 04/08/2018 KOFI OLVERA FACC, ALI FACP CCDS Ot E78.4 OTHER HYPERLIPIDEMIA 04/08/2018 KOFI OLVERA FACC, ALI FACP CCDS Ot I25.10 ATHSCL HEART DISEASE OF [place] CORONARY 04/08/2018 KOFI OLVERA FACC, ALI FACP [...] CCDS Ot E66.9 OBESITY, UNSPECIFIED 04/08/2018 KOFI OLVERA FACC, ALI FACP CCDS Ot I10 ESSENTIAL (PRIMARY) HYPERTENSION 04/08/2018 KOFI OLVERA FACC, ALI FACP CCDS Ot I25.10 ATHSCL HEART DISEASE OF [place] CORONARY 04/08/2018 KOFI OLVERA FACC, ALI FACP [...] CCDS Ot I25.10 ATHSCL HEART DISEASE OF [place] CORONARY 04/08/2018 KOFI OLVERA FACC, ALI FACP [...] CCDS Ot I25.10 ATHSCL HEART DISEASE OF [place] CORONARY 04/08/2018 KOFI OLVERA FACTj, ALI FACP [...] CCDS Ot I25.10 ATHSCL HEART DISEASE OF [place] CORONARY 04/23/2018 KOFI OLVERA FACC, ALI FACP [...] SCREEN-BACTERIAL DIS NEC 04/23/2018 ELEONORA KYLAH L SIGN CARPENTER Ot 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 04/23/2018 ELEONORA KYLAH L SIGN CARPENTER Ot 397.0 TRICUSPID VALVE DISEASE 04/23/2018 ELEONORA KYLAH L SIGN CARPENTER Ot 401.9 HYPERTENSION NOS 04/23/2018 BAIMA, KYLAH L SIGN CARPENTER Ot 414.00 CORON ATHEROSCLER NOS TYPE VESSEL, NATIV 04/23/2018 BAIMA, KYLAH L SIGN CARPENTER Ot 250.00 DIAB MELVA WO COMPL, TYPE II OR UNSPEC TY 04/23/2018 BAIMA, KYLAH L SIGN CARPENTER Ot 272.4 HYPERLIPIDEMIA NEC/NOS 04/23/2018 BAIMA, KYLAH L SIGN CARPENTER Ot 305.1 TOBACCO USE DISORDER 04/23/2018 BAIMA, KYLAH L SIGN CARPENTER Ot 401.9 HYPERTENSION NOS 04/23/2018 BAIMA, YKLAH L SIGN CARPENTER Ot 414.00 CORON ATHEROSCLER NOS TYPE VESSEL, NATIV 04/23/2018 ELEONORA KYLAH L SIGN CARPENTER Ot 424.90 ENDOCARDITIS NOS 04/23/2018 ELEONORA KYLAH L SIGN CARPENTER Ot 496 CHR AIRWAY OBSTRUCT NEC 04/23/2018 PATRICIA MCDONALD MD Ot 996.78 OTH COMP DUE TO OTH INTRNL ORTHPEDIC DEV 04/23/2018 PATRICIA MCDONALD MD Ot V72.63 PRE-PROCEDURAL LABORATORY EXAMINATION 04/23/2018 PATRICIA MCDONALD MD Ot V72.81 [id number] CARDIOVASCULAR 04/23/2018 PATRICIA MCDONALD MD Ot V74.8 SCREEN-BACTERIAL DIS NEC 04/23/2018 KARYN OLVERA, BYRON Bruner Ot 272.4 HYPERLIPIDEMIA NEC/NOS 04/23/2018 BYRON BOSS MD Ot 338.29 OTHER CHRONIC PAIN 04/23/2018 KARYN OLVERA, BYRON Bruner Ot 401.9 HYPERTENSION NOS 04/23/2018 KYLAH CREWS L SIGN CARPENTER Ot 414.00 CORON ATHEROSCLER NOS TYPE VESSEL, NATIV 04/23/2018 ELEONORA KYLAH L SIGN CARPENTER Ot 429.3 CARDIOMEGALY 04/23/2018 SHANA OLVERA, ALVIN Bruner Ot V72.84 EXAM PRE-OPERATIVE NOS 04/23/2018 KYLAH CREWS L SIGN CARPENTER Ot 272.4 HYPERLIPIDEMIA NEC/NOS 04/23/2018 SHANA OLVERA, [...] DIZZINESS AND GIDDINESS 04/23/2018 ELEONORA KYLAH L SIGN CARPENTER Ot E78.5 HYPERLIPIDEMIA, UNSPECIFIED 04/23/2018 ELEONORA KYLAH L SIGN CARPENTER Ot I25.9 CHRONIC ISCHEMIC HEART DISEASE, UNSPECIF 04/23/2018 ETELVINA LEONARD L SIGN CARPENTER Ot 414.00 CORON ATHEROSCLER NOS TYPE VESSEL, NATIV 04/23/2018 ETELVINA LEONARD SIGN CARPENTER Ot 780.2 SYNCOPE AND COLLAPSE 04/23/2018 ETELVINA LEONARD SIGN CARPENTER Ot V45.82 PERCUTANEOUS TRANSLUM CORON ANGIOPLASTY 04/23/2018 KYLAH CREWS SIGN CARPENTER Ot 272.4 HYPERLIPIDEMIA NEC/NOS 04/23/2018 KYLAH CREWS SIGN CARPENTER Ot 276.9 ELECTROLYT/FLUID DIS NEC 04/23/2018 KYLAH CREWS SIGN CARPENTER Ot 401.9 HYPERTENSION NOS 04/23/2018 KYLAH CREWS SIGN CARPENTER Ot 414.00 CORON ATHEROSCLER NOS TYPE VESSEL, [...] Ot 530.81 ESOPHAGEAL REFLUX 04/23/2018 KYLAH CREWS SIGN CARPENTER Ot I71.4 ABDOMINAL AORTIC ANEURYSM, WITHOUT RUPTU [...] CCDS Ot I25.10 ATHSCL HEART DISEASE OF [place] CORONARY 04/23/2018 ADELFO [place] SIGN CARPENTER Ot I71.4 ABDOMINAL AORTIC ANEURYSM, WITHOUT RUPTU [...] CCDS Ot I25.10 ATHSCL HEART DISEASE OF [place] CORONARY 04/23/2018 KOFI OLVERA FACC, BRADLY FACP [...] CCDS Ot I25.10 ATHSCL HEART DISEASE OF [place] CORONARY 04/23/2018 KOFI OLVERA FACC, ALI FACP [...] CCDS Ot I25.10 ATHSCL HEART DISEASE OF [place] CORONARY 04/23/2018 KOFI OLVERA FACC, ALI FACP CCDS Ot I25.5 ISCHEMIC CARDIOMYOPATHY 04/23/2018 KOFI OLVERA FACC, ALI FACP CCDS Ot I73.9 PERIPHERAL VASCULAR DISEASE, UNSPECIFIED 04/23/2018 KOFI HERNÁNDEZC, ALI FACP CCDS Ot J43.8 OTHER EMPHYSEMA 04/23/2018 KOFI OLVERA FACC, ALI FACP CCDS Ot R06.02 SHORTNESS OF BREATH 04/23/2018 KOFI HERNÁNDEZC, ALI FACP CCDS Ot Z72.0 TOBACCO USE 04/23/2018 KYLAH CREWS L SIGN CARPENTER Ot I25.5 ISCHEMIC CARDIOMYOPATHY 04/23/2018 KOFI OLVERA FACC, ALI FACP CCDS Ot E11.9 TYPE 2 DIABETES MELLITUS WITHOUT COMPLIC 04/23/2018 KOFI OLVERA FACC, ALI FACP CCDS Ot E78.4 OTHER HYPERLIPIDEMIA 04/23/2018 KOFI OLVERA FACC, ALI FACP CCDS Ot I25.10 ATHSCL HEART DISEASE OF [place] CORONARY 04/23/2018 KOFI OLVERA FACC, ALI FACP CCDS Ot I25.5 ISCHEMIC CARDIOMYOPATHY 04/23/2018 KOFI HERNÁNDEZ, ALI FACP CCDS Ot I65.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 AND STENOSIS OF BILATERAL [place] 04/23/2018 KOFI OLVERA [facility], ALI FACP CCDS Ot I73.9 PERIPHERAL VASCULAR DISEASE, UNSPECIFIED 04/23/2018 KOFI OLVERA [facility], ALI FACP CCDS Ot R06.02 SHORTNESS OF BREATH 04/23/2018 KOFI OLVERA [facility], ALI FACP CCDS Ot Z72.0 TOBACCO USE 04/23/2018 KOFI OLVERA [facility], ALI FACP CCDS Ot E66.9 OBESITY, UNSPECIFIED 04/23/2018 KOFI OLVERA [facility], ALI FACP CCDS Ot I10 ESSENTIAL (PRIMARY) HYPERTENSION 04/23/2018 KOFI OLVERA [facility], ALI FACP CCDS Ot I25.10 ATHSCL HEART DISEASE OF [place] CORONARY 04/23/2018 KOFI OLVERA [facility], ALI FACP CCDS Ot I65.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 AND STENOSIS OF BILATERAL [place] 04/23/2018 [facility], [facility]I FACP CCDS Ot I71.4 ABDOMINAL AORTIC ANEURYSM, WITHOUT RUPTU 04/23/2018 KOFI OLVERA [facility], ALI FACP CCDS Ot R07.89 OTHER CHEST PAIN 04/23/2018 KOFI OLVERA [facility], ALI FACP CCDS Ot R91.8 OTHER NONSPECIFIC ABNORMAL FINDING OF [place] 04/23/2018 KOFI HERNÁNDEZ, ALI FACP CCDS Ot Z72.0 TOBACCO USE 04/23/2018 KOFI OLVERA [facility], ALI FACP CCDS Ot Z95.828 PRESENCE OF OTHER VASCULAR IMPLANTS AND 04/25/2018 JESSY PANDEY FLEET ASSISTANT Ot R06.83 SNORING 04/25/2018 JESSY PANDEY FLEET ASSISTANT Ot R09.02 HYPOXEMIA 04/28/2018 JESSY PANDEY FLEET ASSISTANT Ot R06.83 SNORING 04/28/2018 JESSY PANDEY FLEET ASSISTANT Ot R09.02 HYPOXEMIA 05/14/2018 THOMPSON QURESHI APRN [...] APRN Ot I25.10 ATHSCL HEART DISEASE OF [place] CORONARY 05/14/2018 THOMPSON QURESHI APRN, Ot J43.9 [...] INITIAL 05/14/2018 THOMPSON QURESHI APRN Ot Z79.82 A AUXILIARY (CURRENT) USE OF ASPIRIN 05/14/2018 THOMPSON QURESHI APRN Ot Z79.84 LONGTERM (CURRENT) USE OF ORAL HYPOGLYC 05/14/2018 THOMPSON QURESHI APRN Ot Z87.81 PERSONAL HISTORY OF (HEALED) TRAUMATIC F 05/14/2018 THOMPSON QURESHI APRN Ot Z88.0 ALLERGY STATUS TO PENICILLIN 05/14/2018 THOMPSON QURESHI APRN Ot Z88.5 ALLERGY STATUS TO NARCOTIC AGENT STATUS 05/14/2018 THOMPSON QURESHI APRN Ot Z88.6 ALLERGY STATUS TO ANALGESIC AGENT STATUS 05/14/2018 THOMPSON QURSEHI APRN Ot Z88.8 ALLERGY STATUS TO OTH [...] APRN Ot I25.10 ATHSCL HEART DISEASE OF [place] CORONARY 05/17/2018 THOMPSON QURESHI APRN Ot J43.9 [...] INITIAL 05/17/2018 THOMPSON QURESHI APRN Ot Z79.82 LONGTERM (CURRENT) USE OF ASPIRIN 05/17/2018 THOMPSON QURESHI APRN Ot Z79.84 LONGTERM (CURRENT) USE OF ORAL HYPOGLYC 05/17/2018 THOMPSON [...] FOR OTHER PREPROCEDURAL EXAMIN 07/30/2018 KYLAH CREWS SIGN CARPENTER Ot I25.5 ISCHEMIC CARDIOMYOPATHY 07/30/2018 KYLAH CREWS SIGN CARPENTER Ot I25.5 ISCHEMIC CARDIOMYOPATHY 07/30/2018 JESSY PANDEY APRN Ot J44.9 CHRONIC OBSTRUCTIVE PULMONARY DISEASE, U 07/30/2018 LEONEL ORTIZ MD Ot E11.40 TYPE 2 DIABETES MELLITUS WITH DIABETIC N 07/30/2018 LEONEL ORTIZ MD Ot I10 ESSENTIAL (PRIMARY) HYPERTENSION 07/30/2018 LEONEL ORTIZ MD Ot I25.10 ATHSCL HEART DISEASE OF [place] CORONARY 07/30/2018 LEONEL ORTIZ MD, Ot J44.9 [...] HEMORRHOIDS 07/30/2018 LEONEL ORTIZ MD, Ot Z79.84 A AUXILIARY (CURRENT) USE OF ORAL HYPOGLYC 07/30/2018 LEONEL [...] MD Ot I25.10 ATHSCL HEART DISEASE OF [place] CORONARY 08/04/2018 LEONEL ORTIZ MD, Ot J44.9 [...] HEMORRHOIDS 08/04/2018 LEONEL ORTIZ MD, Ot Z79.84 LONGTERM (CURRENT) USE OF ORAL HYPOGLYC 08/04/2018 LEONEL [...] MD Ot I25.10 ATHSCL HEART DISEASE OF [place] CORONARY 08/05/2018 LEONEL ORTIZ MD, Ot J44.9 [...] HEMORRHOIDS 08/05/2018 LEONEL ORTIZ MD, Ot Z79.84 LONGTERM (CURRENT) USE OF ORAL HYPOGLYC 08/05/2018 LEONEL ORTIZ MD, Ot Z80.0 FAMILY HISTORY OF MALIGNANT NEOPLASM OF 08/05/2018 LEONEL ORTIZ MD, Ot Z87.891 PERSONAL HISTORY OF NICOTINE DEPENDENCE 08/13/2018 LEONEL ORTIZ MD Ot E11.40 TYPE 2 DIABETES MELLITUS WITH DIABETIC N 08/13/2018 ELONEL ORTIZ MD Ot I10 ESSENTIAL (PRIMARY) HYPERTENSION 08/13/2018 LEONEL ORTIZ MD Ot I25.10 ATHSCL HEART DISEASE OF [place] CORONARY 08/13/2018 LEONEL ORTIZ MD, Ot J44.9 [...] HEMORRHOIDS 08/13/2018 LEONEL ORTIZ MD Ot Z79.84 LONGTERM (CURRENT) USE OF ORAL HYPOGLYC 08/13/2018 LEONEL ORTIZ MD Ot Z80.0 FAMILY HISTORY OF MALIGNANT NEOPLASM OF 08/13/2018 LEONEL ORTIZ MD Ot Z87.891 PERSONAL HISTORY OF NICOTINE DEPENDENCE 11/26/2018 KYLAH CREWS Ot I25.5 ISCHEMIC CARDIOMYOPATHY 11/26/2018 JESSY PANDEY APRN Ot J44.9 CHRONIC OBSTRUCTIVE PULMONARY DISEASE, U 11/26/2018 JESSY PANDEY FLEET ASSISTANT Ot J44.9 CHRONIC OBSTRUCTIVE PULMONARY DISEASE, U 11/26/2018 JESSY PANDEY FLEET ASSISTANT Ot R06.02 SHORTNESS OF BREATH 11/29/2018 LADONNA [...] K Ot I25.10 ATHSCL HEART DISEASE OF [place] CORONARY 11/29/2018 TERE SALGUERO DOA K Ot [...] DO Ot I25.10 ATHSCL HEART DISEASE OF [place] CORONARY 12/01/2018 LADONNA SALGUERO DO Ot J43.9 EMPHYSEMA, UNSPECIFIED 12/01/2018 LADONNA SALGUERO DO Ot J96.11 CHRONIC RESPIRATORY FAILURE WITH HYPOXIA 12/01/2018 LADONNA SALGUERO DO Ot N39.0 URINARY TRACT INFECTION, SITE NOT SPECIF 12/01/2018 LADONNA SALGUERO DO Ot Z79.84 LONGTERM (CURRENT) USE OF ORAL HYPOGLYC 12/01/2018 LADONNA [...] DEPENDENCE ON SUPPLEMENTAL OXYGEN 03/25/2019 PERLAJENNIFFERKYLAH L SIGN CARPENTER Ot I25.5 ISCHEMIC CARDIOMYOPATHY 03/25/2019 JESSY PANDEY FLEET ASSISTANT Ot J44.9 CHRONIC OBSTRUCTIVE PULMONARY DISEASE, U 03/25/2019 JESSY PANDEY FLEET ASSISTANT Ot J44.9 CHRONIC OBSTRUCTIVE PULMONARY DISEASE, U 03/25/2019 JESSY PANDEY FLEET ASSISTANT Ot R06.02 SHORTNESS OF BREATH 05/04/2019 KYLAH CREWS SIGN CARPENTER Ot I25.5 ISCHEMIC CARDIOMYOPATHY 05/04/2019 JESSY PANDEY FLEET ASSISTANT Ot J44.9 CHRONIC OBSTRUCTIVE PULMONARY DISEASE, U 05/04/2019 JESSY PANDEY FLEET ASSISTANT Ot J44.9 CHRONIC OBSTRUCTIVE PULMONARY DISEASE, U 05/04/2019 JESSY PANDEY FLEET ASSISTANT Ot R06.02 SHORTNESS OF BREATH 05/04/2019 VINNIE OLVERA, MARINA Garcia Ot Z89.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 05/18/2019 VINNIE OLVERA, MARINA Garcia Ot Z89.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 05/26/2019 KYLAH CREWS SIGN CARPENTER Ot I25.5 ISCHEMIC CARDIOMYOPATHY 05/26/2019 JESSY PANDEY FLEET ASSISTANT Ot J44.9 CHRONIC OBSTRUCTIVE PULMONARY DISEASE, U 05/26/2019 JESSY PANDEY FLEET ASSISTANT Ot J44.9 CHRONIC OBSTRUCTIVE PULMONARY DISEASE, U 05/26/2019 JESSY PANDEY FLEET ASSISTANT Ot R06.02 SHORTNESS OF BREATH 05/26/2019 VINNIE OLVERA, MARINA Garcia Ot Z89.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 05/27/2019 JESSY PANDEY FLEET ASSISTANT Ot G47.10 HYPERSOMNIA, UNSPECIFIED 05/27/2019 JESSY PANDEY FLEET ASSISTANT Ot G47.36 SLEEP RELATED HYPOVENTILATION IN CONDITI 05/27/2019 JESSY PANDEY FLEET ASSISTANT Ot G47.50 PARASOMNIA, UNSPECIFIED 05/27/2019 JESSY PANDEY FLEET ASSISTANT Ot J43.8 OTHER EMPHYSEMA 05/27/2019 JESSY PANDEY FLEET ASSISTANT Ot R06.00 DYSPNEA, UNSPECIFIED 05/27/2019 KATHERINJESSY BALDERAS FLEET ASSISTANT Ot R06.02 SHORTNESS OF BREATH 05/27/2019 JESSY PANDEY FLEET ASSISTANT Ot R91.8 OTHER NONSPECIFIC ABNORMAL FINDING OF [place]ON[place] 05/27/2019 JESSY PANDEY FLEET ASSISTANT Ot Z72.0 TOBACCO USE 06/09/2019 JESSY PANDEY FLEET ASSISTANT Ot G47.10 HYPERSOMNIA, UNSPECIFIED 06/09/2019 JESSY PANDEY FLEET ASSISTANT Ot G47.36 SLEEP RELATED HYPOVENTILATION IN CONDITI 06/09/2019 JESSY PANDEY FLEET ASSISTANT Ot G47.50 PARASOMNIA, UNSPECIFIED 06/09/2019 JESSY PANDEY FLEET ASSISTANT Ot J43.8 OTHER EMPHYSEMA 06/09/2019 JESSY PANDEY FLEET ASSISTANT Ot R06.00 DYSPNEA, UNSPECIFIED 06/09/2019 JESSY PANDEY FLEET ASSISTANT Ot R06.02 SHORTNESS OF BREATH 06/09/2019 JESSY PANDEY FLEET ASSISTANT Ot R91.8 OTHER NONSPECIFIC ABNORMAL FINDING OF [place] 06/09/2019 JESSY PANDEY FLEET ASSISTANT Ot Z72.0 TOBACCO USE Procedures Code Description Performed By Performed On 59.79 URIN INCONTIN REPAIR NEC 01/28/2012 79.36 OP RED-INT FIX TIB/FIBUL 06/17/2012 96352 HEMOCCULT 09/07/2012 94654 PAP SMEAR 09/13/2012 58329 ROUTINE VENIPUNCTURE 10/11/2012 26638 A1C (IN-HOUSE) 10/11/2012 05490 URINE DRUG SCREEN (IN-HOUSE) 10/11/2012 46452 MICRO ALBUMIN-IN HOUSE 10/11/2012 46924 CMP 10/11/2012 22037 LIPID PANEL 10/11/2012 [id number] GFR CALC (RESULT ONLY) 10/11/2012 66744 MICROALBUMIN 10/12/2012 96621 URINE DRUG SCREEN (IN-HOUSE) 10/22/2012 24501 MAMMOGRAM, SCREENING 10/24/2012 Q0091 PAP SMEAR OBTAIN SMEAR 10/24/2012 88562 ROUTINE VENIPUNCTURE 12/02/2012 79913 URINE DRUG SCREEN (IN-HOUSE) 12/02/2012 46114 URINE PCP GC/MS 12/03/2012 25465 TSH 12/04/2012 38895 ROUTINE VENIPUNCTURE 02/08/2013 16415 A1C (IN-HOUSE) 02/08/2013 96394 URINE DRUG SCREEN (IN-HOUSE) 02/08/2013 54167 MICRO ALBUMIN-IN HOUSE 02/08/2013 43863 CMP 02/08/2013 [id number] GFR CALC (RESULT ONLY) 02/08/2013 16166 CBC 02/08/2013 34523 MICROALBUMIN 02/08/2013 Vivian Cah 02/11/2013 03613 DEBRIDE NAIL >6 06/03/2013 10745 ROUTINE VENIPUNCTURE 08/10/2013 G0008 FLU ADMINISTRATION (MEDICARE ONLY) 08/10/2013 62277 URINE DRUG SCREEN (IN-HOUSE) 08/10/2013 14036 CBC 08/10/2013 84489 CMP 08/10/2013 43859 LIPID PANEL 08/10/2013 [id number] GFR CALC (RESULT ONLY) 08/10/2013 63237 TSH 08/11/2013 08235 A1C (RML) 08/11/2013 93439 UA W/ CULTURE IF INDICATED 08/17/2013 18358 CULTURE URINE 08/18/2013 88527 DEBRIDE NAIL >6 09/02/2013 09254 DEBRIDE NAIL >6 12/09/2013 50180 CMP 2014 82786 MAGNESIUM 2014 94992 A1C (IN-HOUSE) 2014 10046 ROUTINE VENIPUNCTURE 02/27/2014 [id number] GFR CALC (RESULT ONLY) 02/27/2014 37686 BMP 02/27/2014 71595 DEBRIDE NAIL >6 03/10/2014 21248 URINE DRUG SCREEN (IN-HOUSE) 04/03/2014 18118 ROUTINE VENIPUNCTURE 05/22/2014 ALVIN AREVALO 05/22/2014 69220 A1C (IN-HOUSE) 05/22/2014 5624905 GFR CALC (RESULT ONLY) 05/22/2014 11930 CMP 05/22/2014 65187 TSH 05/22/2014 Alvin Arevalo 06/20/2014 64953 ROUTINE VENIPUNCTURE 08/28/2014 84426 OXIMETRY 08/28/2014 88230 A1C (IN-HOUSE) 08/28/2014 65384 BMP 08/28/2014 79408 TSH 08/28/2014 86241 OXIMETRY 11/13/2014 65546 ROUTINE VENIPUNCTURE 11/27/2014 46228 XRAY CHEST 2 VIEW 11/27/2014 98104 CMP 11/27/2014 43874 TSH 11/27/2014 63421 CBC 11/27/2014 14631 MYCOPLASMA ANTIBODY 11/27/2014 36375 XRAY KNEE LEFT, 1 OR 2 VIEWS 12/11/2014 20743 XRAY ANKLE R, 2 VIEWS 12/11/2014 91550 ROUTINE VENIPUNCTURE 02/19/2015 86887 ECHO 2D 02/19/2015 76255 AMERITOX 02/19/2015 CARDIOLOG KOFI, ALI 02/19/2015 85503 MAGNESIUM 02/19/2015 36920 CBC 02/19/2015 1773111 GFR CALC (RESULT ONLY) 02/19/2015 96996 [facility] 02/19/2015 [id number] SPTYPE 02/19/2015 42130 TSH 02/19/2015 81291 ROUTINE VENIPUNCTURE 02/27/2015 56576 [facility] 02/27/2015 5654665 GFR CALC (RESULT ONLY) 02/27/2015 Results Test Result Range [facility] - 01/25/18 11:55 GLUCOSE 92 mg/dL 65-99 UREA NITROGEN (BUN) 20 mg/dL 7-25 CREATININE 0.86 mg/dL 0.50-1.05 eGFR NON-AFR. FIJIAN 77 mL/min/1.73m2 > OR=60 eGFR 89 mL/min/1.73m2 [...] culture - 02/21/18 18:11 Bacterial urine culture [id number] NRG COLONY COUNT >100,000/ML NRG Automated blood [...] 11.9 fL 7.5-12.5 ABSOLUTE NEUTROPHILS 4890 cells/uL 3647-9453 ABSOLUTE LYMPHOCYTES 3685 cells/uL 850-3900 ABSOLUTE MONOCYTES [...] culture - 11/26/18 15:25 Bacterial urine culture [id number] NRG COLONY COUNT >100,000/ML NRG FTX;REPORTABLE RML [...] ABO+Rh group BP NRG Transfusion band number [id number] NRG Blood group antibody screen NEGATIVE NRG [...] 7-25 CREATININE 0.72 mg/dL 0.50-1.05 eGFR NON-AFR. FIJIAN 94 mL/min/1.73m2 > OR=60 eGFR 109 mL/min/1.73m2 [...] 11.1 fL 7.5-12.5 ABSOLUTE NEUTROPHILS 5551 cells/uL 2967-6304 ABSOLUTE LYMPHOCYTES 2348 cells/uL 850-3900 ABSOLUTE MONOCYTES [...] Status Pt. Type Provider Facility Loc./Unit Complaint [id number] 02/27/2015 09:51:00 02/27/2015 23:59:59 [facility] Outpatient ETELVINA LEONARD APRN [id number] 02/19/2015 08:48:00 02/19/2015 23:59:59 [facility] Outpatient ETELVINA LEONARD APRN [id number] 02/09/2015 08:56:00 02/09/2015 23:59:59 CLS Outpatient LADONNA SALGUERO DO [id number] 12/11/2014 14:31:00 12/11/2014 23:59:59 CLS Outpatient ETELVINA LEONARD APRN [id number] 12/11/2014 14:31:00 12/11/2014 23:59:59 [facility] Outpatient SALGUERO DOLADONNA Adriana [id number] 11/27/2014 13:24:00 11/27/2014 23:59:59 CLS Outpatient SALGUERO DOTERERadha Wright [id number] 11/27/2014 13:24:00 11/27/2014 23:59:59 CLS Outpatient MADL FLEET ASSISTANT, ETELVINA L [id number] 11/13/2014 09:52:00 11/13/2014 23:59:59 CLS Outpatient MADL FLEET ASSISTANT, ETELVINA L [id number] 10/23/2014 13:14:00 10/23/2014 23:59:59 CLS Outpatient MADL FLEET ASSISTANT, ETELVINA L [id number] 09/25/2014 13:26:00 09/25/2014 23:59:59 CLS Outpatient MADL FLEET ASSISTANT, ETELVINA L [id number] 08/28/2014 09:22:00 08/28/2014 23:59:59 CLS Outpatient MADL FLEET ASSISTANT, ETELVINA L [id number] 08/28/2014 09:22:00 08/28/2014 23:59:59 CLS Outpatient MADL FLEET ASSISTANT, ETELVINA L [id number] 07/24/2014 09:55:00 07/24/2014 23:59:59 CLS Outpatient SALGUERO DOLADONNA Adriana [id number] 06/19/2014 09:11:00 06/19/2014 23:59:59 CLS Outpatient SALGUERO DOLADONNA Adriana [id number] 05/22/2014 13:40:00 05/22/2014 23:59:59 CLS Outpatient MADL FLEET ASSISTANT, TEELVINA L [id number] 05/22/2014 13:40:00 05/22/2014 23:59:59 CLS Outpatient MADL FLEET ASSISTANT, ETELVINA L [id number] 04/03/2014 14:31:00 04/03/2014 23:59:59 CLS Outpatient MADL FLEET ASSISTANT, ETELVINA L [id number] 04/03/2014 14:31:00 04/03/2014 23:59:59 CLS Outpatient SALGUERO DOTERERadha Wright [id number] 03/10/2014 08:26:00 03/10/2014 23:59:59 CLS Outpatient SALGUERO DO LADONNA Wright [id number] 03/10/2014 08:26:00 03/10/2014 23:59:59 CLS Outpatient SALGUERO DO, LADONNA Wright [id number] 02/27/2014 14:59:00 02/27/2014 23:59:59 CLS Outpatient LADONNA SALGUERO DO Adriana [id number] 2014 09:28:00 2014 23:59:59 CLS Outpatient BYRON BOSS MD [id number] 2014 09:28:00 2014 23:59:59 CLS Outpatient BYRON BOSS MD [id number] 12/09/2013 07:39:00 12/09/2013 23:59:59 CLS Outpatient LADONNA SALGUERO DO Adriana [id number] 09/22/2013 09:11:00 09/22/2013 23:59:59 CLS Outpatient BYRON BOSS MD [id number] 09/02/2013 07:40:00 09/02/2013 23:59:59 CLS Outpatient SALGUERO LADONNA [id number] 08/25/2013 15:49:00 08/25/2013 23:59:59 CLS Outpatient BYRON BOSS MD [id number] 08/17/2013 13:19:00 08/17/2013 23:59:59 CLS Outpatient BYRON BOSS MD [id number] 02/08/2013 10:18:00 02/08/2013 23:59:59 CLS Outpatient BYRON BOSS MD [id number] 12/07/2012 08:34:00 12/07/2012 23:59:59 CLS Outpatient ROMELIA FISCHER MD [id number] 12/02/2012 14:59:00 12/02/2012 23:59:59 CLS Outpatient LAURIE MORA APRN [id number] 11/01/2012 08:50:00 11/01/2012 23:59:59 CLS Outpatient [id number] 10/11/2012 08:39:00 10/11/2012 23:59:59 CLS Outpatient LAURIE MORA APRN [id number] 09/07/2012 09:19:00 09/07/2012 23:59:59 CLS Outpatient LAURIE MORA APRN [id number] 08/10/2013 14:39:00 Document Registration [id number] 06/03/2013 08:05:00 Document Registration [id number] 06/03/2013 08:05:00 Document Registration [id number] 02/08/2013 10:18:00 Document Registration [id number] 06/10/2019 11:00:00 06/10/2019 23:59:59 CLS Outpatient KING FISHMAN MD [facility] [id number] 05/02/2019 14:40:00 Document Registration [id number] 07/13/2018 13:20:00 Document Registration [id number] 07/08/2018 15:20:00 Document Registration [id number] 2018 11:00:00 Document Registration [id number] 06/08/2019 12:05:00 06/08/2019 23:59:59 CLS Preadmit JESSY PANDEY FLEET ASSISTANT [facility] RAD COPD [id number] 05/26/2019 10:45:00 05/26/2019 23:59:59 CLS Outpatient JESSY PANDEY FLEET ASSISTANT [facility] LAB ABG [id number] 04/27/2019 10:33:00 04/27/2019 23:59:59 CLS Outpatient MARINA BIRMINGHAM MD [facility] REHAB S/P R BKA [id number] 12/31/2018 12:05:00 12/31/2018 23:59:59 CLS Preadmit KING FISHMAN MD [facility] RAD ROUTINE ADULT HEALTH MAINTENANCE [id number] 11/26/2018 15:58:00 12/01/2018 12:05:00 DIS Inpatient SALGUERO DO, LADONNA K [facility] 4TH GASTROENTERITIS,UTI [id number] 08/02/2018 08:15:00 08/02/2018 23:59:59 CLS Preadmit JESSY PANDEY FLEET ASSISTANT [facility] PULM COPD,SOB [id number] 05/03/2018 08:12:00 08/01/2018 00:01:00 DIS Outpatient JESSY PANDEY FLEET ASSISTANT [facility] PULM COPD,SOB [id number] 07/30/2018 11:45:00 07/30/2018 14:55:00 DIS Outpatient LEONEL ORTIZ MD [facility] ENDO +BLOOD IN STOOL/FAMILY HX COLON CA [id number] 07/23/2018 05:49:00 07/23/2018 11:04:00 DIS Outpatient LEONEL ORTIZ MD [facility] PREOP COLONOSCOPY [id number] 05/27/2018 10:09:00 05/27/2018 23:59:59 CLS Outpatient JESSY PANDEY FLEET ASSISTANT [facility] RAD COPD [id number] 05/14/2018 15:04:00 05/14/2018 16:20:00 DIS Emergency THOMPSON QURESHI FLEET ASSISTANT Via [facility] ER R ANKLE PAIN/COLD [id number] 04/24/2018 20:37:00 04/25/2018 06:48:00 DIS Outpatient JESSY PANDEY FLEET ASSISTANT [facility] SLEEP COPD,SOB [id number] 03/31/2018 11:36:00 03/31/2018 23:59:59 CLS Outpatient KOFI OLVERA FACC, ALI FACP CCDS [facility] RAD R07.89 CHEST PAIN [id number] 03/09/2018 06:49:00 03/09/2018 12:30:00 DIS Outpatient KOFI OLVERA FACC, ALI FACP CCDS [facility] CATH CAD [id number] 03/03/2018 09:01:00 03/03/2018 11:50:00 DIS Outpatient LEONEL ORTIZ MD [facility] ENDO DYSPHAGIA [id number] 02/26/2018 05:52:00 02/26/2018 12:49:00 DIS Outpatient LEONEL ORTIZ MD [facility] PREOP EGD [id number] 02/21/2018 16:36:00 02/21/2018 19:07:00 DIS Emergency FELICIA ENCINAS DO K [facility] ER WEAKNESS [id number] 02/15/2018 10:22:00 02/15/2018 15:46:00 DIS Emergency MARLA EVERETT MD Via [facility] ER CP [id number] 01/07/2018 16:24:00 01/07/2018 19:40:00 DIS Emergency HARDEEP DORANTSE [facility] ER FALL WITH BIG BUMP ON L LEG [id number] 12/29/2017 12:20:00 12/29/2017 23:59:59 CLS Outpatient KOFI OLVERA FACC, ALI FACP CCDS [facility] RAD I25.10 CAD [id number] 12/21/2017 13:54:00 12/21/2017 23:59:59 CLS Outpatient KYLAH CREWS SIGN CARPENTER Via [facility] CARD I25.5 CARDIOMYOPATHY [id number] 12/02/2017 08:24:00 12/02/2017 23:59:59 CLS Outpatient KOFI OLVERA FACC, ALI FACP CCDS [facility] RT R06.02 SOB [id number] 12/01/2017 08:04:00 12/01/2017 23:59:59 CLS Outpatient KOFI OLVERA FACC, ALI FACP CCDS [facility] CARD R06.02 SOB [id number] 11/26/2017 11:24:00 11/26/2017 23:59:59 CLS Outpatient KOFI OLVERA FACC, ALI FACP CCDS [facility] CARD R06.02 SOB [id number] 11/09/2017 12:27:00 11/09/2017 23:59:59 CLS Outpatient BILL CLEMENTE DO [facility] RAD ABNORMAL MAMMO [id number] 10/27/2017 12:24:00 10/27/2017 23:59:59 CLS Outpatient BILL CLEMENTE DO [facility] RAD SCREENING [id number] 12/31/2016 10:19:00 12/31/2016 23:59:59 CLS Outpatient ADELFO WASHINGTON SIGN CARPENTER Via [facility] RAD AAA [id number] 04/07/2016 08:25:00 04/07/2016 11:40:00 DIS Outpatient ALVIN SALDANA MD Via [facility] SDC DYSKINESIA [id number] 04/02/2016 05:42:00 04/02/2016 11:05:00 DIS Outpatient ALVIN SALDANA MD [facility] PREOP DYSKINSIA [id number] 03/11/2016 11:17:00 03/11/2016 23:59:59 CLS Outpatient KOFI OLVERA FACC, BRADLY NIX CCDS [facility] LAB CAD,HYPERLIPIDEMIA [id number] 03/09/2016 16:47:00 03/09/2016 19:30:00 DIS Emergency KARLOS OLVERA, MARLA Ackerman [facility] ER FEVER/DIARRHEA [id number] 03/05/2016 19:11:00 03/05/2016 21:37:00 DIS Emergency INES REYNOSO MD Via [facility] ER EYE SWELLING/ANKLE PAIN FROM FALL [id number] 12/18/2015 08:53:00 12/18/2015 23:59:59 CLS Outpatient KYLAH CREWS [facility] RAD ABDOMEN AORTIC ECTASIA [id number] 12/09/2015 10:18:00 12/09/2015 12:47:00 DIS Emergency BETTINA ROMAN MD Via [facility] ER R EYE SWELLING/PAIN [id number] 12/01/2015 13:15:00 12/01/2015 15:12:00 DIS Emergency MARLA EVERETT MD Via [facility] ER R EYE SWELLING [id number] 10/07/2015 16:35:00 10/07/2015 18:15:00 DIS Emergency BETTINA ROMAN MD Via [facility] ER POST OP/BLEEDING [id number] 10/04/2015 10:45:00 10/04/2015 23:59:59 CLS Outpatient BILL CLEMENTE DO Via [facility] LAB RESISTANT GUINFECTIONS [id number] 09/13/2015 10:52:00 09/13/2015 23:59:59 CLS Outpatient KYLAH CREWS [facility] LAB HLP,CAD [id number] 07/30/2015 15:05:00 07/30/2015 16:25:00 DIS Emergency HARDEEP DORANTES [facility] ER BACK,HIP PAIN [id number] 07/16/2015 17:17:00 07/16/2015 18:20:00 DIS Emergency THOMPSON QURESHI APRN Via [facility] ER L ARM, L KNEE INJ [id number] 07/09/2015 13:52:00 07/09/2015 23:59:59 CLS Outpatient BILL CLEMENTE DO Via [facility] RAD TRAUMA L 3RD TOE W/DIABETES [id number] 06/11/2015 09:00:00 06/11/2015 23:59:59 CLS Outpatient KOFI OLVERA FACC, BRADLY NIX CCDS [facility] RAD ABDOMINAL AORTIAL ECTASIA [id number] 04/10/2015 10:25:00 04/10/2015 23:59:59 CLS Outpatient BILL CLEMENTE DO Via [facility] RAD R ANKLE PAIN, HX OF FX SURGERY [id number] 03/26/2015 11:17:00 03/26/2015 23:59:59 CLS Outpatient BILL CLEMENTE DO Radha [facility] RAD BACK PAIN, [id number] 03/16/2015 10:23:00 03/16/2015 23:59:59 CLS Outpatient BRYN PRAKASH BILL Radha [facility] LAB DM II,CAD,HLP [id number] 03/16/2015 10:20:00 03/16/2015 23:59:59 CLS Outpatient KYLAH CREWS [facility] LAB ELECTROLYTE DEPLETION,CAD,HTN,HLP [id number] 03/01/2015 07:26:00 03/01/2015 23:59:59 CLS Outpatient ETELVINA LEONARDP [facility] CARD NEAR SYNCOPE EPISODE CAD [id number] 02/19/2015 16:09:00 02/20/2015 13:40:00 DIS Inpatient CAROLYN OLVERA, QUE Bowser [facility] 4TH ORTHOSTATIC HYPOTENSION; ACUTE RENAL FAILURE [id number] 12/30/2014 11:12:00 12/30/2014 14:54:00 DIS Emergency INES REYNOSO MD Via [facility] ER SOA,DIZZINESS [id number] 11/03/2014 08:58:00 11/03/2014 10:36:00 DIS Emergency DANIELITO SORIANO MD Via [facility] ER COUGH/CONGESTION [id number] 10/30/2014 14:50:00 10/30/2014 16:25:00 DIS Emergency HARDEEP DORANTES [facility] ER NAUSEATED/BODYACHES/WEAKNESS EARACHE/RINGING [id number] 10/01/2014 13:53:00 10/01/2014 14:57:00 DIS Emergency HUANG DOFELICIA K [facility] ER RECTAL BLEEDING [id number] 09/11/2014 09:46:00 09/11/2014 23:59:59 CLS Outpatient KOFI OLVERA FACC, BRADLY NIX CCDS [facility] CARD ISCHEMIC CARDIO MYOPATHY,CAD [id number] 09/01/2014 10:58:00 09/01/2014 11:40:00 DIS Emergency THOMPSON QURESHI APRN Via [facility] ER SWOLLEN EYE [id number] 08/31/2014 16:55:00 08/31/2014 18:16:00 DIS Emergency THOMPSON QURESHI APRN Via [facility] ER NECK SWELLING [id number] 07/10/2014 09:07:00 07/10/2014 11:55:00 DIS Outpatient [facility] DYSPHAGIA [id number] 07/05/2014 07:29:00 07/05/2014 23:59:59 CLS Outpatient ALVIN SALDANA MD [facility] PREOP DYSPHAGIA [id number] 06/05/2014 08:24:00 06/05/2014 11:43:00 DIS Outpatient [facility];FAMILY HISTORY [id number] 05/31/2014 07:28:00 05/31/2014 23:59:59 CLS Outpatient ALVIN SALDANA MD Via [facility] PREOP SCREENING;FAMILY HISTORY [id number] 05/29/2014 12:18:00 05/29/2014 23:59:59 CLS Outpatient KYLAH CREWS [facility] LAB POST HEART CATH [id number] 05/23/2014 06:24:00 05/23/2014 20:30:00 DIS Outpatient KOFI OLVERA FACCBRADLY FACP CCDS Via [facility] CATH SHORTNESS OF BREATH CAD ABNORMAL STRESS TEST [id number] 05/08/2014 12:02:00 05/08/2014 23:59:59 CLS Outpatient KYLAH CREWS [facility] CARD CAD [id number] 02/13/2014 12:30:00 02/13/2014 14:00:00 DIS Emergency THOMPSON QURESHI APRN Via [facility] ER FALL/BACK PAIN [id number] 02/09/2014 19:30:00 02/11/2014 10:45:00 DIS Inpatient LADONNA SALGUERO DO Via [facility] ICU ACUTE COPD EXACERBATION [id number] 2014 11:48:00 2014 23:59:59 CLS Outpatient BYRON BOSS MD Via [facility] LAB HTN,HYPERLIPADEIA [id number] 12/12/2013 06:44:00 12/12/2013 11:43:00 DIS Outpatient PATRICIA MCDONALD MD Via [facility] SDC PAINFUL HARDWARE RIGHT ANKLE [id number] 12/05/2013 14:33:00 12/05/2013 23:59:59 CLS Outpatient PATRICIA MCDONALD MD Via [facility] PREOP PAINFUL HARDWARE RIGHT ANKLE [id number] 11/04/2013 12:22:00 11/04/2013 12:46:00 DIS Emergency MARLA EVERETT MD Via [facility] ER SUTURE REMOVAL [id number] 10/31/2013 10:42:00 10/31/2013 23:59:59 CLS Outpatient KYLAH CREWS Via [facility] CARD CAD,HTN [id number] 10/25/2013 08:26:00 10/25/2013 23:59:59 CLS Outpatient KYLAH CREWS Via [facility] LAB CAD,HEART VALVE DISEASE,HTN,HYPERLIPIDEMIA,COPD [id number] 10/25/2013 18:12:00 10/25/2013 20:10:00 DIS Emergency HARDEEP DORANTES [facility] ER FOOT INJ [id number] 10/21/2013 06:02:00 10/22/2013 11:11:00 DIS Outpatient EDUARDO VILLEGAS MD Via [facility] INTRINSIC SPHINCTER DEFICIENCY; INCONTINENCE [id number] 10/17/2013 09:25:00 10/17/2013 23:59:59 CLS Outpatient EDUARDO VILLEGAS MD Via [facility] PREOP INTRINSIC SPHINCTER DEFICIENCY; INCONTINENCE [id number] 08/03/2013 06:00:00 08/03/2013 09:56:00 DIS Outpatient EDUARDO VILLEGAS MD [facility] INCONTINENCE [id number] 07/27/2013 12:35:00 07/27/2013 23:59:59 CLS Outpatient EDUARDO VILLEGAS MD Via [facility] PREOP INCONTINENCE [id number] 06/13/2013 14:57:00 06/13/2013 23:59:59 CLS Outpatient [id number] 04/18/2013 22:12:00 04/18/2013 23:34:00 DIS Emergency FELICIA ENCINAS DO Via [facility] ER REACTION TO MEDICATION [id number] 04/17/2013 14:11:00 04/17/2013 15:42:00 DIS Emergency MARCO A VAN MD Via [facility] ER VOMITING BODY ACHES [id number] 03/26/2015 11:17:00 Document Registration [id number] 01/19/2013 18:23:00 Document Registration [id number] 01/01/2013 15:27:00 Document Registration [id number] 12/26/2012 14:21:00 Document Registration [id number] 11/11/2012 16:20:00 Document Registration [id number] 10/24/2012 23:40:00 Document Registration [id number] 09/19/2012 19:49:00 Document Registration [id number] 09/13/2012 10:47:00 Document Registration [id number] 09/08/2012 15:08:00 Document Registration [id number] 09/04/2012 17:10:00 Document Registration [id number] 06/12/2012 16:25:00 Document Registration [id number] 06/03/2012 10:41:00 Document Registration [id number] 04/16/2012 09:50:00 Document Registration [id number] 03/17/2012 10:58:00 Document Registration [id number] 03/08/2012 10:14:00 Document Registration [id number] 02/01/2012 18:50:00 Document Registration [id number] 01/28/2012 06:00:00 Document Registration [id number] 01/21/2012 09:31:00 Document Registration [id number] 11/11/2011 07:21:00 Document Registration [id number] 10/30/2011 08:09:00 Document Registration [id number] 10/27/2011 07:16:00 Document Registration [id number] 10/24/2011 12:36:00 Document Registration [id number] 10/19/2011 11:22:00 Document Registration [id number] 08/07/2011 10:17:00 Document Registration [id number] 07/14/2011 13:47:00 Document Registration [id number] 07/06/2011 18:30:00 Document Registration [id number] 03/19/2011 05:41:00 Document Registration [id number] 03/13/2011 12:47:00 Document Registration [id number] 02/12/2011 10:12:00 Document Registration [id number] 02/06/2011 08:14:00 Document Registration [id number] 01/22/2011 05:55:00 Document Registration [id number] 01/15/2011 10:27:00 Document Registration [id number] 11/08/2010 10:08:00 Document Registration [id number] 09/05/2010 05:48:00 Document Registration [id number] 09/04/2010 09:00:00 Document Registration [id number] 08/26/2010 07:15:00 Document Registration [id number] 08/07/2010 14:40:00 Document Registration [id number] 08/02/2010 08:36:00 Document Registration [id number] 05/26/2010 12:24:00 Document Registration [id number] 04/14/2010 17:58:00 Document Registration [id number] 03/08/2010 10:03:00 Document Registration [id number] 03/07/2010 09:13:00 Document Registration [id number] 02/21/2010 08:56:00 Document Registration [id number] 08/02/2009 18:35:00 Document Registration
[2019-06-14] MEDS: metroNIDAZOLE 500MG/100ML IVPB 100 ML IV SCH (17:48)
--- NOTE | 2019-06-14 17:56 | Diagnostic Imaging Report ---
INDICATION: Shortness of air. TIME OF EXAM: 5:45 PM CORRELATION is made with prior chest from earlier the same day. FINDINGS: The heart size is stable. There is minimal patchy infiltrate in the right base, similar to prior. The remainder of the lung tai are clear. There is no effusion or pneumothorax. IMPRESSION: Stable chest since earlier the same day. Dictated by: Dictated on workstation # [id number]
[2019-06-14 18:00] LABS: ABG BASE EXCESS -4.2 MMOL/L (-2.5-2.5); ABG OXYGEN SATURATION 90 % (94-100); ABG PCO2 42 MMHG (35-45); ABG PO2 66 MMHG (79-93); ABG TCO2 21.9 MMOL/L (21.0-31.0)
[2019-06-14 18:02] LABS: ABG PH 7.32 (7.37-7.43); ALLENS TEST YES-POS; INSPIRED O2 4; PATIENT TEMP 100.4; VENTILATOR NO
[2019-06-14] MEDS: CEFEPIME 1,000 MG/SWFI 10 ML IV PUSH IV SCH ×2 (18:55)
[2019-06-14] MEDS ORDERED: CEFEPIME 1,000 MG/SWFI 10 ML IV PUSH IV SCH ×2 (19:00)
[2019-06-14] MEDS: RT-ALBUTEROL/IPRATROPIUM 3 ML (DUONEB) VIAL INH SCH (22:15)
[2019-06-15] VITALS (25 sets, daily range): BP systolic 90–163; BP diastolic 47–95
[2019-06-15] MEDS: LACTATED RINGERS 1,000 ML IV SCH ×5 (00:49→23:34)
[2019-06-15] MEDS: CEFEPIME 1,000 MG/SWFI 10 ML IV PUSH IV SCH ×8 (01:47→18:14)
[2019-06-15 02:41] LABS: ABG BASE EXCESS -2.9 MMOL/L (-2.5-2.5); ABG OXYGEN SATURATION 97 % (94-100); ABG PCO2 36 MMHG (35-45); ABG PH 7.39 (7.37-7.43); ABG PO2 87 MMHG (79-93); ABG TCO2 22.3 MMOL/L (21.0-31.0)
[2019-06-15 02:44] LABS: ALLENS TEST YES-POS; INSPIRED O2 35%; PATIENT TEMP 99.4; VENTILATOR NO
[2019-06-15] MEDS: RT-ALBUTEROL/IPRATROPIUM 3 ML (DUONEB) VIAL INH SCH ×6 (02:45→22:19)
[2019-06-15 03:49] LABS: BASOPHILS % (AUTO) 0 % (0-10); EOSINOPHILS % (AUTO) 0 % (0-10); HEMATOCRIT 28 % (35-52); HEMOGLOBIN 7.9 G/DL (11.5-16.0); LYMPHOCYTES # (AUTO) 1.4 X 10^3 (1.0-4.0); LYMPHOCYTES % (AUTO) 6 % (12-44); MEAN CORPUSCULAR HEMOGLOBIN 20 PG (25-34); MEAN CORPUSCULAR HGB CONC 28 G/DL (32-36); MEAN CORPUSCULAR VOLUME 70 FL (80-99); MEAN PLATELET VOLUME 11.4 FL (7.4-10.4); MONOCYTES # (AUTO) 1.6 X 10^3 (0.0-1.0); MONOCYTES % (AUTO) 7 % (0-12); NEUTROPHILS # (AUTO) 20.1 X 10^3 (1.8-7.8); NEUTROPHILS % (AUTO) 87 % (42-75); PLATELET COUNT 233 10^3/uL (130-400); RED CELL DISTRIBUTION WIDTH 18.3 % (10.0-14.5); WHITE BLOOD COUNT 23.1 10^3/uL (4.3-11.0)
[2019-06-15 04:09] LABS: ALANINE AMINOTRANSFERASE 10 U/L (0-55); ALBUMIN 2.6 GM/DL (3.2-4.5); ALKALINE PHOSPHATASE 92 U/L (40-136); BILIRUBIN,TOTAL 0.4 MG/DL (0.1-1.0); BUN/CREATININE RATIO 22; CALCIUM 8.9 MG/DL (8.5-10.1); CARBON DIOXIDE 18 MMOL/L (21-32); CHLORIDE 106 MMOL/L (98-107); CREATININE SERUM 0.79 MG/DL (0.60-1.30); GFR ESTIMATED > 60; GLUCOSE 112 MG/DL (70-105); MAGNESIUM 1.6 MG/DL (1.8-2.4); PHOSPHORUS 2.5 MG/DL (2.3-4.7); POTASSIUM 4.6 MMOL/L (3.6-5.0); SODIUM 135 MMOL/L (135-145); TOTAL PROTEIN 5.7 GM/DL (6.4-8.2)
[2019-06-15] MEDS: metroNIDAZOLE 500MG/100ML IVPB 100 ML IV SCH ×2 (05:50→18:13)
[2019-06-15] MEDS: MAGNESIUM 1 GM/100 ML IVPB 100 ML IV SCH ×3 (06:07→07:41)
[2019-06-15] MEDS: POTASSIUM CL 10MEQ/50ML IVPB 50 ML IV SCH (06:07)
[2019-06-15] MEDS: KCL 20 MEQ TAB (K-DUR) PO SCH (06:08)
--- NOTE | 2019-06-15 07:08 | Pulmonary Progress Note ---
Subjective Time Seen by a Provider: 07:04 Subjective/Events-last exam Pt is currently on BiPAP. She is more awake today. complains of SOB and RLQ abdominal pain. Sepsis Event Evaluation Height, Weight, BMI Height: 5'7.00" Weight: 201lbs. 8.0oz. 91.854075go; 28.5 BMI Method:Stated Focused Exam Lactate Level 06/14/19 13:18: Lactic Acid Level 2.95*H 06/14/19 15:50: Lactic Acid Level 2.27*H 06/14/19 17:39: Lactic Acid Level 1.53 Exam Exam Vital Signs Date Time Temp Pulse Resp B/P (MAP) Pulse Ox O2 Delivery O2 Flow Rate FiO2 06/15/19 06:00 115 22 155/70 (98) 99 NIV Bilevel 35.00 06/15/19 05:00 117 23 152/73 (99) 96 NIV Bilevel 35.00 06/15/19 04:00 117 23 155/78 (103) 96 NIV Bilevel 35.00 06/15/19 04:00 97 NIV Bilevel 35 06/15/19 03:00 114 24 148/73 (98) 97 NIV Bilevel 35.00 06/15/19 02:54 99.4 06/15/19 02:43 118 20 98 35.00 06/15/19 02:00 118 23 158/71 (100) 96 NIV Bilevel 35.00 06/15/19 01:00 116 06/15/19 01:00 116 16 150/72 (98) 97 NIV Bilevel 35.00 06/15/19 00:51 99.7 NIV Bilevel 35.00 06/15/19 00:00 97 NIV Bilevel 35 06/15/19 00:00 113 21 155/71 (99) 100 NIV Bilevel 40.00 06/14/19 23:00 110 31 137/54 (81) 98 NIV Bilevel 40.00 06/14/19 22:29 108 19 98 40.00 06/14/19 22:00 109 15 162/89 (113) 97 NIV Bilevel 40.00 06/14/19 21:00 103 20 134/78 (96) 97 NIV Bilevel 40.00 06/14/19 20:30 97.4 06/14/19 20:00 105 22 134/74 (94) 97 NIV Bilevel 40.00 06/14/19 19:45 97 NIV Bilevel 40 06/14/19 19:19 97.4 110 20 121/77 (92) 97 NIV Bilevel 40.00 06/14/19 19:00 111 06/14/19 18:30 98.7 06/14/19 18:24 114 15 96 40.00 06/14/19 18:08 94 Nasal Cannula 4.00 06/14/19 18:00 117 16 127/72 (90) 92 NIV Bilevel 40.00 12.00 06/14/19 17:15 92 Nasal Cannula 4.00 06/14/19 17:08 120 06/14/19 17:00 100.2 117 16 143/82 (102) 93 Nasal Cannula 4.00 06/14/19 16:46 92 Nasal Cannula 4.00 06/14/19 16:45 103.1 114 16 165/77 90 Nasal Cannula 4.00 06/14/19 16:35 101.8 117 16 133/82 (99) 93 Nasal Cannula 4.00 06/14/19 16:20 102.0 118 18 142/84 (103) 93 Nasal Cannula 4.00 06/14/19 16:16 102.2 06/14/19 16:05 102.2 120 16 125/75 (92) 93 Nasal Cannula 4.00 06/14/19 15:58 99 Nasal Cannula 4.00 06/14/19 15:44 113 99 36 06/14/19 15:05 103.1 114 16 165/77 (106) 90 Nasal Cannula 4.00 06/14/19 14:53 101.7 113 20 155/82 (106) 99 06/14/19 13:18 102.8 112 20 165/95 90 Nasal Cannula 3.00 06/14/19 11:33 101.3 104 20 155/82 95 Nasal Cannula 3.00 06/14/19 11:21 101.0 107 18 141/84 (103) 92 2.00 06/14/19 11:12 95 Nasal Cannula 4.00 I & O 06/15/19 07:00 Intake Total 4370 ml Output Total 1025 ml Balance 3345 ml Height & Weight Height: 5'7.00" Weight: 201lbs. 8.0oz. 91.062019ab; 28.5 BMI Method:Stated General Appearance: Chronically ill, Moderate Distress HEENT: Moist Mucous Membranes; No Scleral Icterus (L), No Scleral Icterus (R) Neck: Supple; No JVD, No Thyromegaly Respiratory: Accessory Muscle Use, Crackles, Decreased Breath Sounds, Respiratory Distress Cardiovascular: No Murmur, Tachycardia Capillary Refill: Less Than 3 Seconds Extremity: Normal Capillary Refill, Other (s/p BKA LLE) Neurologic/Psychiatric: Alert, Oriented x3 Skin: Mottled, Other (multiple wounds/scabs of varying ages on arms and legs) Results Lab Laboratory Tests 06/14/19 11:02 06/15/19 03:30 Assessment/Plan Assessment/Plan Sepsis secondary to PNA and UTI -Cefepime, and Flagyl -Cdiff toxin pending -Stool cultures pending Acute respiratory distress -BiPAP currently -Will trial off BiPAP this AM Possible aspiration PNA -Aspiration precautions Metabolic lactic acidosis -IVF -Monitor Dehydration -IVF COPDAE -SVNS Metabolic encephalopathy s/p Narcan -Possibly will need narcan gtt -Monitor close Anemia -Monitor Diarrhea -CDiff toxin pending CAD CHF ROSE OSBORN DO Jun 15, 2019 07:08
--- NOTE | 2019-06-15 09:11 | Diagnostic Imaging Report ---
Indication: Dyspnea Upright chest shows normal heart size and vascularity. There is right basilar atelectasis. There is no effusion or pneumothorax. There is no change from 06/14/2019. Impression: Stable chest. Dictated by: Dictated on workstation # [id number]
[2019-06-15] MEDS: oxyCODONE/APAP 5/325MG (PERCOCET 5) TABLET PO PRN ×3 (09:55→18:14)
--- NOTE | 2019-06-15 10:03 | Progress Note - Hospitalist ---
Subjective HPI/CC On Admission Date Seen by Provider: Jun 15, 2019 Time Seen by Provider: 07:45 Pt was admitted for severe sepsis due t o RLL PNA. She is unable to provide me any history at this time due to obtundation. She reportedly presented to the ER with CC of fever, nausea, vomiting, and diarrhea. She was febrile here as well with temps up to 103. CT Chest showed a RLE and urine was consistent with a UTI. She was found to have an elevated lactic acid as well qualifying her for severe sepsis. She complained of pain throughout her stay in the ER and received fentanyl and morphine. On my arrival to the bedside she was altered and responded only to sternal rub necessitating Narcan with significant improvement in mentation. Subjective/Events-last exam Patient reports feeling much better today. Breathing is better. Does complain of pain but discussed oversedation yesterday from pain medications agreeable for lower doses. No other complaints or concerns. Focused Exam Lactate Level 06/14/19 13:18: Lactic Acid Level 2.95*H 06/14/19 15:50: Lactic Acid Level 2.27*H 06/14/19 17:39: Lactic Acid Level 1.53 Objective Exam Vital Signs Vital Signs Date Time Temp Pulse Resp B/P (MAP) Pulse Ox O2 Delivery O2 Flow Rate FiO2 06/15/19 09:00 116 25 96 Nasal Cannula 4.00 06/15/19 07:57 98.6 06/15/19 04:00 35 Capillary Refill : Less Than 3 Seconds General Appearance: No Apparent Distress, Chronically ill Neck: No Thyromegaly Respiratory: No Accessory Muscle Use, No Respiratory Distress, Rhonci Cardiovascular: Regular Rate, Rhythm, No Murmur Gastrointestinal: Normal Bowel Sounds, Non Tender, Soft; No Distended, No Guarding, No Rebound Extremity: Other (s/p BKA LLE) Neurologic/Psychiatric: Alert, Oriented x3 Skin: Other (multiple wounds/scabs of varying ages on arms and legs) Results/Procedures Lab Laboratory Tests 06/14/19 11:02 06/15/19 03:30 Patient resulted labs reviewed. Imaging: Reviewed Imaging Report Assessment/Plan Assessment and Plan Assess & Plan/Chief Complaint severe sepsis Diagnosis/Problems Diagnosis/Problems (1) Sepsis Status: Resolved Assessment & Plan: febrile with leukocytosis and tachycardia PNA and UTI Continue Cefepime/ flagyl c diff negative blood cultures positive for likely Clostridium Qualifiers: Sepsis type: sepsis due to unspecified organism Qualified Codes: A41.9 - Sepsis, unspecified organism Resolution Date/Time: 11/30/18 @ 1:24 pm (2) Altered mental status Status: Resolved Assessment & Plan: Likely due to critical illness and oversedation Qualifiers: Altered mental status type: somnolence Qualified Codes: R40.0 - Somnolence Resolution Date/Time: 06/15/19 @ 10:00 am (3) Urinary tract infection Status: Resolved Assessment & Plan: antibiotics as above Qualifiers: Urinary tract infection type: acute cystitis Hematuria presence: without hematuria Qualified Codes: N30.00 - Acute cystitis without hematuria Resolution Date/Time: 12/01/18 @ 11:19 am (4) Pneumonia Status: Acute Assessment & Plan: Concern for aspiration with vomiting Cefepime/flagyl as above Pulm consulted Qualifiers: Pneumonia type: due to unspecified organism Laterality: right Lung location: lower lobe of lung Qualified Codes: J18.1 - Lobar pneumonia, unspecified organism (5) Anemia Status: Chronic Assessment & Plan: Anemia of chronic disease trend transfuse to keep Hgb >8 given CAD and critical illness Hemoglobin marginal 7.9 we'll hold transfusions or now. If further drop will transfuse tomorrow Qualifiers: Anemia type: unspecified type Qualified Codes: D64.9 - Anemia, unspecified (6) Diarrhea Status: Resolved Assessment & Plan: negative c diff start probiotic Qualifiers: Diarrhea type: unspecified type Qualified Codes: R19.7 - Diarrhea, unspecified Resolution Date/Time: 12/01/18 @ 11:19 am (7) CAD (coronary artery disease) Status: Chronic Assessment & Plan: last cath 02/2018 showed patent stent Continue home meds Qualifiers: Coronary Disease-Associated Artery/Lesion type: unspecified vessel or lesion type [place] vs. transplanted heart: [place] heart Associated angina: without angina Qualified Codes: I25.10 - Atherosclerotic heart disease of [place] coronary artery without angina pectoris (8) Diabetes mellitus Status: Chronic Assessment & Plan: SSI Qualifiers: Diabetes mellitus type: type 2 Diabetes mellitus complication status: with skin complications Diabetes mellitus complication detail: with other skin complication (9) HTN (hypertension) Status: Chronic Assessment & Plan: Elevated while at bedside but will hold given sepsis Resume home meds Qualifiers: Hypertension type: essential hypertension Qualified Codes: I10 - Essential (primary) hypertension (10) COPD (chronic obstructive pulmonary disease) Status: Chronic Assessment & Plan: Chronic oxygen requirement Dr Merino consulted, appreciate recs Qualifiers: COPD type: unspecified COPD Qualified Codes: J44.9 - Chronic obstructive pulmonary disease, unspecified (11) Counseling regarding end of life decision making Assessment & Plan: Continued discussions of CODE STATUS today and patient elects to be DO NOT RESUSCITATE Offered assistance with advanced directive that she does not have had more but she declined stating "I do not want my sister to get anything" Informed her that it advanced directive has nothing to do with financial matters and she still declined KOFFI CASEY MD Jun 15, 2019 10:03 am
[2019-06-15] MEDS: meTOprolol TARTRATE 25 MG (LOPRESSOR) TABLET PO SCH ×2 (10:49→21:09)
[2019-06-15] MEDS: GABAPENTIN 600 MG (NEURONTIN) TAB PO SCH ×2 (10:49→21:08)
[2019-06-15] MEDS: DULoxetine 30 MG (CYMBALTA) CAP PO SCH (10:49)
[2019-06-15] MEDS: DIPHENOXYLATE/ATROPINE 2.5MG/0.025MG (LOMOTIL) TAB PO PRN ×2 (10:58→21:08)
--- NOTE | 2019-06-15 11:19 | NUR ---
1025 WHEN PLACING DNR BRACELT PT STATES AT THIS TIME TO THIS RN " I WANT EVERYTHING DONE". PT EDUCATED ON CPR AND VENTILATION AND CONTINUES TO STATE "YES I WANT EVERYTHING DONE", DR CASEY NOTIFIED.
--- NOTE | 2019-06-15 11:20 | NUR ---
Pastoral care visit.
[2019-06-15] MEDS ORDERED: TIOT18CA2 IH (15:22)
[2019-06-15] MEDS: MONTELUKAST 10 MG (SINGULAIR) TAB PO SCH (18:14)
[2019-06-15] MEDS: MIRTAZAPINE 15 MG (REMERON) TAB PO SCH (21:08)
[2019-06-15] MEDS: ATORVASTATIN 40 MG (LIPITOR) TABLET PO SCH (21:09)
[2019-06-15] MEDS: ACETAMINOPHEN 500 MG TAB (TYLENOL) PO PRN (21:09)
[2019-06-15] MEDS: traZODone 100 MG (DESYREL) TAB PO SCH (22:01)
[2019-06-16] VITALS (17 sets, daily range): BP systolic 103–142; BP diastolic 56–83
[2019-06-16] MEDS: CEFEPIME 1,000 MG/SWFI 10 ML IV PUSH IV SCH ×10 (00:41→20:38)
[2019-06-16] MEDS: oxyCODONE/APAP 5/325MG (PERCOCET 5) TABLET PO PRN ×6 (00:42→21:50)
[2019-06-16] MEDS: RT-ALBUTEROL/IPRATROPIUM 3 ML (DUONEB) VIAL INH SCH ×6 (02:13→22:09)
[2019-06-16 04:07] LABS: BASOPHILS % (AUTO) 0 % (0-10); EOSINOPHILS # (AUTO) 0.4 10^3/uL (0.0-0.3); EOSINOPHILS % (AUTO) 2 % (0-10); HEMATOCRIT 27 % (35-52); HEMOGLOBIN 7.5 G/DL (11.5-16.0); LYMPHOCYTES # (AUTO) 1.1 X 10^3 (1.0-4.0); LYMPHOCYTES % (AUTO) 7 % (12-44); MEAN CORPUSCULAR HGB CONC 27 G/DL (32-36); MEAN CORPUSCULAR VOLUME 71 FL (80-99); MEAN PLATELET VOLUME 10.7 FL (7.4-10.4); MONOCYTES % (AUTO) 6 % (0-12); NEUTROPHILS # (AUTO) 13.6 X 10^3 (1.8-7.8); NEUTROPHILS % (AUTO) 85 % (42-75); PLATELET COUNT 219 10^3/uL (130-400); RED CELL DISTRIBUTION WIDTH 18.7 % (10.0-14.5); WHITE BLOOD COUNT 15.9 10^3/uL (4.3-11.0)
[2019-06-16 04:12] LABS: MEAN CORPUSCULAR HEMOGLOBIN 19 PG (25-34)
[2019-06-16 04:34] LABS: ALANINE AMINOTRANSFERASE 9 U/L (0-55); ALBUMIN 2.5 GM/DL (3.2-4.5); ALKALINE PHOSPHATASE 100 U/L (40-136); BILIRUBIN,TOTAL 0.3 MG/DL (0.1-1.0); BUN/CREATININE RATIO 22; CALCIUM 8.5 MG/DL (8.5-10.1); CARBON DIOXIDE 21 MMOL/L (21-32); CHLORIDE 110 MMOL/L (98-107); CREATININE SERUM 0.67 MG/DL (0.60-1.30); GFR ESTIMATED > 60; GLUCOSE 93 MG/DL (70-105); MAGNESIUM 1.8 MG/DL (1.8-2.4); PHOSPHORUS 2.2 MG/DL (2.3-4.7); SODIUM 140 MMOL/L (135-145); TOTAL PROTEIN 5.6 GM/DL (6.4-8.2)
[2019-06-16] MEDS: KCL 20 MEQ TAB (K-DUR) PO SCH (05:07)
[2019-06-16] MEDS: MAGNESIUM 1 GM/100 ML IVPB 100 ML IV SCH (05:07)
[2019-06-16] MEDS: POTASSIUM CL 10MEQ/50ML IVPB 50 ML IV SCH (05:07)
--- NOTE | 2019-06-16 06:10 | Pulmonary Progress Note ---
Subjective Time Seen by a Provider: 06:12 Subjective/Events-last exam Pt complains of SOB however improved. Sepsis Event Evaluation Height, Weight, BMI Height: 5'7.00" Weight: 201lbs. 8.0oz. 91.502119bu; 28.5 BMI Method:Stated Focused Exam Lactate Level 06/14/19 13:18: Lactic Acid Level 2.95*H 06/14/19 15:50: Lactic Acid Level 2.27*H 06/14/19 17:39: Lactic Acid Level 1.53 Exam Exam Vital Signs Date Time Temp Pulse Resp B/P (MAP) Pulse Ox O2 Delivery O2 Flow Rate FiO2 06/16/19 05:00 88 12 130/60 (83) 94 Nasal Cannula 2.00 06/16/19 04:00 87 17 120/61 (80) 92 Nasal Cannula 2.00 06/16/19 04:00 93 Nasal Cannula 4.00 06/16/19 03:00 87 15 117/60 (79) 91 Nasal Cannula 2.00 06/16/19 02:13 95 Nasal Cannula 4.00 06/16/19 02:00 82 16 103/56 (72) 93 Nasal Cannula 4.00 06/16/19 01:00 84 12 122/59 (80) 94 Nasal Cannula 4.00 06/16/19 01:00 84 06/16/19 00:00 98.8 06/16/19 00:00 96 Nasal Cannula 4.00 06/16/19 00:00 85 20 139/72 (94) 95 Nasal Cannula 4.00 06/15/19 23:00 92 19 134/57 (82) 96 Nasal Cannula 4.00 06/15/19 22:21 Nasal Cannula 2.00 06/15/19 22:19 99 Nasal Cannula 4.00 06/15/19 22:00 92 16 127/65 (85) 96 Nasal Cannula 4.00 06/15/19 21:00 92 31 137/65 (89) 90 Nasal Cannula 4.00 06/15/19 20:00 98 Nasal Cannula 4.00 06/15/19 20:00 93 14 143/61 (88) 94 Nasal Cannula 4.00 06/15/19 19:19 96 Nasal Cannula 4.00 06/15/19 19:10 98.6 92 14 143/56 (85) 95 Nasal Cannula 4.00 06/15/19 19:00 91 16 143/56 (85) 96 Nasal Cannula 4.00 06/15/19 19:00 91 06/15/19 18:00 92 15 144/59 (87) 97 Nasal Cannula 4.00 06/15/19 17:00 89 16 163/83 (109) 97 Nasal Cannula 4.00 06/15/19 16:20 98 Nasal Cannula 4.00 06/15/19 16:00 88 24 149/71 (97) 95 Nasal Cannula 4.00 06/15/19 15:30 97.9 06/15/19 15:00 86 9 133/71 (91) 95 Nasal Cannula 4.00 06/15/19 14:27 94 Nasal Cannula 4.00 06/15/19 14:00 95 22 151/82 (105) 96 Nasal Cannula 4.00 06/15/19 13:00 88 34 90/47 (61) 100 Nasal Cannula 4.00 06/15/19 12:54 101 06/15/19 12:35 97 Nasal Cannula 4.00 06/15/19 12:00 98 14 139/70 (93) 100 Nasal Cannula 4.00 06/15/19 11:30 97.6 06/15/19 11:02 95 Nasal Cannula 4.00 06/15/19 11:00 111 35 118/65 (82) 90 Nasal Cannula 4.00 06/15/19 10:00 114 34 133/72 (92) 99 Nasal Cannula 4.00 06/15/19 09:00 116 25 96 Nasal Cannula 4.00 06/15/19 08:16 Nasal Cannula 4.00 06/15/19 08:15 97 NIV Bilevel 35 06/15/19 08:00 116 25 159/95 (116) 96 NIV Bilevel 35.00 06/15/19 07:57 98.6 06/15/19 07:19 Nasal Cannula 06/15/19 07:19 95 Nasal Cannula 4.00 06/15/19 07:00 115 06/15/19 07:00 118 24 154/77 (102) 96 NIV Bilevel 35.00 I & O 06/16/19 07:00 Intake Total 1840 ml Output Total 2000 ml Balance -160 ml Height & Weight Height: 5'7.00" Weight: 201lbs. 8.0oz. 91.275241up; 28.5 BMI Method:Stated General Appearance: Chronically ill, Mild Distress Neck: No Thyromegaly Respiratory: No Accessory Muscle Use, No Respiratory Distress, Decreased Breath Sounds, Rhonci Cardiovascular: Regular Rate, Rhythm, No Murmur Capillary Refill: Less Than 3 Seconds Gastrointestinal: non tender, soft Extremity: Other (s/p BKA LLE) Neurologic/Psychiatric: Alert, Oriented x3 Skin: Normal Color, Warm/Dry, Other (multiple wounds/scabs of varying ages on arms and legs) Results Lab Laboratory Tests 06/14/19 11:02 06/15/19 03:30 06/16/19 03:40 Assessment/Plan Assessment/Plan Sepsis secondary to PNA and UTI -Cefepime, and Flagyl -Cdiff toxin-- neg -Stool cultures pending Acute respiratory distress -MOnitor Possible aspiration PNA -Aspiration precautions COPDAE -SVNS Anemia -Monitor Diarrhea -CDiff toxin- neg CAD CHF ROSE OSBORN DO Jun 16, 2019 06:10
[2019-06-16] MEDS: LACTATED RINGERS 1,000 ML IV SCH (06:27)
[2019-06-16] MEDS: DIPHENOXYLATE/ATROPINE 2.5MG/0.025MG (LOMOTIL) TAB PO PRN (06:27)
[2019-06-16] MEDS: metroNIDAZOLE 500MG/100ML IVPB 100 ML IV SCH ×2 (06:27→16:52)
[2019-06-16] MEDS: LEVOTHYROXINE 50 MCG (LEVOTHROID) TAB PO SCH (06:28)
--- NOTE | 2019-06-16 08:14 | Diagnostic Imaging Report ---
EXAM: CHEST 1 VIEW, AP/PA ONLY INDICATION: Dyspnea. COMPARISON: Chest radiograph 06/15/2019. FINDINGS: Normal heart size and central pulmonary vascularity. Persistent atelectasis or infiltrate in the lung bases, greater on the right. No definite pleural effusion or pneumothorax. No acute osseous findings. IMPRESSION: Persistent atelectasis or infiltrate in right lung base. Dictated by: Dictated on workstation # [id number]
[2019-06-16] MEDS: meTOprolol TARTRATE 25 MG (LOPRESSOR) TABLET PO SCH ×2 (08:15→20:37)
[2019-06-16] MEDS: LORATADINE (CLARITIN) 10 MG TAB PO SCH (08:15)
[2019-06-16] MEDS: TOLTERODINE LA 4 MG (DETROL) CAP PO SCH (08:15)
[2019-06-16] MEDS: GABAPENTIN 600 MG (NEURONTIN) TAB PO SCH ×2 (08:16→20:36)
[2019-06-16] MEDS: amLODIPine 5 MG (NORVASC) TAB PO SCH (08:16)
[2019-06-16] MEDS: FLUoxetine HCL 20 MG (PROzac) CAP PO SCH (08:16)
--- NOTE | 2019-06-16 08:45 | NUR ---
REPORT RECEIVED FROM GIOVANI KEITH IN ICU. WILL ASSUME CARE OF PT WHEN SHE ARRIVES TO THE FLOOR.
[2019-06-16] MEDS ORDERED: NON-FORMULARY MEDICATION 1 EA EA (Brexpiprazole (Rexulti) 2 MG) PO SCH (09:00)
--- NOTE | 2019-06-16 09:05 | NUR ---
PT ARRIVED TO FLOOR VIA WHEELCHAIR. A/O X4. 4L NC IN PLACE. PT UP IN CHAIR. REPORTS PAIN 9.5/10 IN LEFT FLANK/ABDOMINAL AREA. NEXT PAIN MEDICATION DUE AT 10AM. PT ORIENTED TO ROOM. CALL LIGHT WITHIN REACH. PT REQUESTING BREAKFAST AND A SHOWER. AIDE ASSISTING PATIENT WITH SHOWER.
--- NOTE | 2019-06-16 09:22 | NUR ---
0910 PT TO 4TH FLOOR VIA W/C AND PORTABLE 02 AT 4L ACCOMPANIED BY THIS RN, ALL PERSONAL BELONGINGS SENT WITH PT, REPORT TO KEATON MATUTE.
--- NOTE | 2019-06-16 09:34 | Progress Note - Hospitalist ---
Subjective HPI/CC On Admission Date Seen by Provider: Jun 16, 2019 Time Seen by Provider: 09:27 Pt was admitted for severe sepsis due t o RLL PNA. She is unable to provide me any history at this time due to obtundation. She reportedly presented to the ER with CC of fever, nausea, vomiting, and diarrhea. She was febrile here as well with temps up to 103. CT Chest showed a RLE and urine was consistent with a UTI. She was found to have an elevated lactic acid as well qualifying her for severe sepsis. She complained of pain throughout her stay in the ER and received fentanyl and morphine. On my arrival to the bedside she was altered and responded only to sternal rub necessitating Narcan with significant improvement in mentation. Subjective/Events-last exam Pt reports feeling much better. No new complaints. Focused Exam Lactate Level 06/14/19 13:18: Lactic Acid Level 2.95*H 06/14/19 15:50: Lactic Acid Level 2.27*H 06/14/19 17:39: Lactic Acid Level 1.53 Objective Exam Vital Signs Vital Signs Date Time Temp Pulse Resp B/P (MAP) Pulse Ox O2 Delivery O2 Flow Rate FiO2 06/16/19 10:58 90 Nasal Cannula 4.00 06/16/19 09:08 99.0 85 20 134/75 (94) 06/15/19 08:15 35 Capillary Refill : Less Than 3 Seconds General Appearance: No Apparent Distress, Chronically ill Neck: No Thyromegaly Respiratory: Lungs Clear, No Accessory Muscle Use, No Respiratory Distress Cardiovascular: Regular Rate, Rhythm, No Murmur Gastrointestinal: Normal Bowel Sounds, Non Tender, Soft; No Distended, No Gua rding, No Rebound Extremity: Other (s/p BKA LLE) Neurologic/Psychiatric: Alert, Oriented x3 Skin: Normal Color, Warm/Dry, Other (multiple wounds/scabs of varying ages on arms and legs) Results/Procedures Lab Laboratory Tests 06/16/19 03:40 Patient resulted labs reviewed. Imaging: Reviewed Imaging Report Assessment/Plan Assessment and Plan Assess & Plan/Chief Complaint severe sepsis Diagnosis/Problems Diagnosis/Problems (1) Sepsis Status: Resolved Assessment & Plan: Leukocytosis improving Afebrile PNA and UTI Continue Cefepime/ flagyl c diff negative blood cultures positive for likely Clostridium Qualifiers: Sepsis type: sepsis due to unspecified organism Qualified Codes: A41.9 - Sepsis, unspecified organism Resolution Date/Time: 11/30/18 @ 1:24 pm (2) Urinary tract infection Status: Resolved Assessment & Plan: antibiotics as above Qualifiers: Urinary tract infection type: acute cystitis Hematuria presence: without hematuria Qualified Codes: N30.00 - Acute cystitis without hematuria Resolution Date/Time: 12/01/18 @ 11:19 am (3) Pneumonia Status: Acute Assessment & Plan: Concern for aspiration with vomiting Cefepime/flagyl as above Pulm consulted Still on 4lpm up from baseline of 2lpm Qualifiers: Pneumonia type: due to unspecified organism Laterality: right Lung location: lower lobe of lung Qualified Codes: J18.1 - Lobar pneumonia, unspecified organism (4) Altered mental status Status: Resolved Assessment & Plan: Likely due to critical illness and oversedation Qualifiers: Altered mental status type: somnolence Qualified Codes: R40.0 - Somnolence Resolution Date/Time: 06/15/19 @ 10:00 am (5) Anemia Status: Chronic Assessment & Plan: Anemia of chronic disease trend transfuse to keep Hgb 8 given CAD and critical illness 1 unit ordered today Qualifiers: Anemia type: unspecified type Qualified Codes: D64.9 - Anemia, unspecified (6) Diarrhea Status: Resolved Assessment & Plan: negative c diff cont probiotic Qualifiers: Diarrhea type: unspecified type Qualified Codes: R19.7 - Diarrhea, unspecified Resolution Date/Time: 12/01/18 @ 11:19 am (7) CAD (coronary artery disease) Status: Chronic Assessment & Plan: last cath 02/2018 showed patent stent Continue home meds Qualifiers: Coronary Disease-Associated Artery/Lesion type: unspecified vessel or lesion type [place] vs. 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 use Diabetes mellitus complication status: with skin complications Diabetes mellitus complication detail: with other skin complication Qualified Codes: E11.628 - Type 2 diabetes mellitus with other skin complications (9) HTN (hypertension) Status: Chronic Assessment & Plan: Elevated while at bedside but will hold given sepsis Resume home meds Qualifiers: Hypertension type: essential hypertension Qualified Codes: I10 - Essential (primary) hypertension (10) COPD (chronic obstructive pulmonary disease) Status: Chronic Assessment & Plan: Chronic oxygen requirement Dr Merino consulted, appreciate recs Qualifiers: COPD type: unspecified COPD Qualified Codes: J44.9 - Chronic obstructive pulmonary disease, unspecified (11) Counseling regarding end of life decision making Assessment & Plan: Continued discussions of CODE STATUS today and patient elects to be DO NOT RESUSCITATE Offered assistance with advanced directive that she does not have had more but she declined stating "I do not want my sister to get anything" Informed her that it advanced directive has nothing to do with financial matters and she still declined Clinical Quality Measures DVT/VTE Risk/Contraindication: Risk Factor Score Per Nursin RFS Level Per Nursing on Admit: 4+=Very High KOFFI CASEY MD Jun 16, 2019 9:33 am
[2019-06-16] MEDS ORDERED: NS IV 500 ML 500 ML IV SCH (09:36)
[2019-06-16] MEDS: RT-ADVAIR HFA 115/21 MCG PER PUFF IH SCH ×2 (10:54→18:47)
--- NOTE | 2019-06-16 13:22 | NUR ---
DR CASEY NOTIFIED OF TEMP 100.5 PRE TRANSFUSION VS. ORDER RECEIVED TO GIVE TYLENOL BEFORE TRANSFUSION.
[2019-06-16] MEDS: ACETAMINOPHEN 500 MG TAB (TYLENOL) PO PRN ×2 (13:28→18:41)
--- NOTE | 2019-06-16 14:43 | NUR ---
CEFEPIME STILL UNAVAILABLE IN [facility] CALLED.
--- NOTE | 2019-06-16 15:00 | NUR ---
CM/SS, respond to consult and lengthy visit with patient due to concerns about possible dog bites on both arms. Per patient report: She has resided in [facility] for about 5 years. At some point her sister Renata Ybarra moved in with her, then Renata moved in her fiance Henrique Kelly. Between them they have 4 Kapil dogs. Patient indicates that her sister's dog is aggressive and scratches her arms but that it is her fault because she teases the dog. Patient made it a point to take full blame for any injuries incurred from the dog(s). The pattern of injuries is not consistent with dog bite and not convincingly for dog scratch. Patient states she gets nervous and picks at them and the injuries at this time appear to be round red wounds as though a scab was picked off. DME: Patient had right BKA 08/15/2018. She has prosthesis, FWW, wheelchair, crutches. She is on continuous O2 established with [facility]. Patient's transport home will need to be reminded to bring her portable when she is discharged. Patient intends to return to her apartment when released. Continuing to explore living conditions as it relates to patient safety and well-being.
[2019-06-16] MEDS: DULoxetine 30 MG (CYMBALTA) CAP PO SCH (16:42)
[2019-06-16] MEDS: MONTELUKAST 10 MG (SINGULAIR) TAB PO SCH (16:51)
[2019-06-16] MEDS: ATORVASTATIN 40 MG (LIPITOR) TABLET PO SCH (20:36)
[2019-06-16] MEDS: traZODone 100 MG (DESYREL) TAB PO SCH (20:37)
[2019-06-16] MEDS: MIRTAZAPINE 15 MG (REMERON) TAB PO SCH (20:37)
[2019-06-17] VITALS (7 sets, daily range): BP systolic 126–168; BP diastolic 60–90
[2019-06-17] MEDS: RT-ALBUTEROL/IPRATROPIUM 3 ML (DUONEB) VIAL INH SCH ×6 (02:45→22:42)
[2019-06-17] MEDS: CEFEPIME 1,000 MG/SWFI 10 ML IV PUSH IV SCH ×4 (03:00→09:33)
[2019-06-17] MEDS: oxyCODONE/APAP 5/325MG (PERCOCET 5) TABLET PO PRN ×5 (03:56→20:34)
[2019-06-17] MEDS: LACTATED RINGERS 1,000 ML IV SCH ×2 (03:57→22:37)
[2019-06-17] MEDS: LEVOTHYROXINE 50 MCG (LEVOTHROID) TAB PO SCH (06:11)
[2019-06-17] MEDS: metroNIDAZOLE 500MG/100ML IVPB 100 ML IV SCH ×2 (06:11→17:39)
[2019-06-17 06:12] LABS: BASOPHILS % (AUTO) 0 % (0-10); EOSINOPHILS # (AUTO) 0.3 10^3/uL (0.0-0.3); EOSINOPHILS % (AUTO) 2 % (0-10); HEMATOCRIT 27 % (35-52); HEMOGLOBIN 7.5 G/DL (11.5-16.0); LYMPHOCYTES # (AUTO) 0.9 X 10^3 (1.0-4.0); LYMPHOCYTES % (AUTO) 6 % (12-44); MEAN CORPUSCULAR HEMOGLOBIN 20 PG (25-34); MEAN CORPUSCULAR HGB CONC 28 G/DL (32-36); MEAN CORPUSCULAR VOLUME 73 FL (80-99); MEAN PLATELET VOLUME 11.1 FL (7.4-10.4); MONOCYTES # (AUTO) 0.9 X 10^3 (0.0-1.0); MONOCYTES % (AUTO) 6 % (0-12); NEUTROPHILS # (AUTO) 12.6 X 10^3 (1.8-7.8); NEUTROPHILS % (AUTO) 86 % (42-75); PLATELET COUNT 240 10^3/uL (130-400); RED CELL DISTRIBUTION WIDTH 18.6 % (10.0-14.5); WHITE BLOOD COUNT 14.7 10^3/uL (4.3-11.0)
[2019-06-17 06:41] LABS: ALANINE AMINOTRANSFERASE 12 U/L (0-55); ALBUMIN 2.4 GM/DL (3.2-4.5); ALKALINE PHOSPHATASE 116 U/L (40-136); BILIRUBIN,TOTAL 0.3 MG/DL (0.1-1.0); BUN/CREATININE RATIO 15; CALCIUM 8.3 MG/DL (8.5-10.1); CARBON DIOXIDE 25 MMOL/L (21-32); CHLORIDE 108 MMOL/L (98-107); CREATININE SERUM 0.66 MG/DL (0.60-1.30); GFR ESTIMATED > 60; GLUCOSE 111 MG/DL (70-105); MAGNESIUM 1.4 MG/DL (1.8-2.4); POTASSIUM 3.9 MMOL/L (3.6-5.0); SODIUM 139 MMOL/L (135-145); TOTAL PROTEIN 5.5 GM/DL (6.4-8.2)
[2019-06-17] MEDS: RT-ADVAIR HFA 115/21 MCG PER PUFF IH SCH ×2 (07:13→18:51)
--- NOTE | 2019-06-17 08:00 | Pulmonary Progress Note ---
Subjective Time Seen by a Provider: 11:28 Subjective/Events-last exam NO complicatiosn noted. Sepsis Event Evaluation Height, Weight, BMI Height: 5'7.00" Weight: 201lbs. 8.0oz. 91.974839ji; 28.5 BMI Method:Stated Focused Exam Lactate Level 06/14/19 13:18: Lactic Acid Level 2.95*H 06/14/19 15:50: Lactic Acid Level 2.27*H 06/14/19 17:39: Lactic Acid Level 1.53 Exam Exam Vital Signs Date Time Temp Pulse Resp B/P (MAP) Pulse Ox O2 Delivery O2 Flow Rate FiO2 06/17/19 07:16 93 Nasal Cannula 4.00 06/17/19 07:13 93 Nasal Cannula 4.00 06/17/19 04:00 100.7 101 22 168/85 (112) 92 Nasal Cannula 4.00 06/17/19 01:25 81 93 36 06/17/19 00:00 97.0 81 18 131/60 (83) 93 Nasal Cannula 4.00 06/16/19 22:09 95 Nasal Cannula 4.00 06/16/19 21:00 92 Nasal Cannula 4.00 06/16/19 20:21 100.5 97 22 133/60 (84) 92 Nasal Cannula 4.00 06/16/19 18:56 95 Nasal Cannula 4.00 06/16/19 18:47 93 Nasal Cannula 4.00 06/16/19 18:32 100.6 06/16/19 17:27 100.8 06/16/19 16:00 100.0 79 18 142/67 95 Nasal Cannula 4.00 06/16/19 15:40 101.5 104 22 136/64 (88) 93 Nasal Cannula 4.00 06/16/19 15:09 93 Nasal Cannula 4.00 06/16/19 14:19 100.8 87 20 126/60 (82) 98 Nasal Cannula 4.00 06/16/19 13:58 100.0 06/16/19 13:56 100.0 89 18 132/62 96 Nasal Cannula 4.00 06/16/19 13:28 100.5 06/16/19 13:20 100.5 92 18 125/60 96 Nasal Cannula 4.00 06/16/19 12:59 99.6 91 20 124/61 (82) 95 Nasal Cannula 4.00 06/16/19 10:58 90 Nasal Cannula 4.00 06/16/19 09:08 99.0 85 20 134/75 (94) 94 Nasal Cannula 4.00 06/16/19 09:05 96 Nasal Cannula 4.00 06/16/19 08:32 97.9 06/16/19 08:00 95 Nasal Cannula 4.00 06/16/19 08:00 87 14 128/62 (84) 95 Nasal Cannula 2.00 I & O 06/17/19 07:00 Intake Total 2034 ml Output Total 2602 ml Balance -568 ml Height & Weight Height: 5'7.00" Weight: 201lbs. 8.0oz. 91.909147wm; 28.5 BMI Method:Stated General Appearance: No Apparent Distress, Chronically ill Neck: No Thyromegaly Respiratory: Lungs Clear, No Accessory Muscle Use, No Respiratory Distress Cardiovascular: Regular Rate, Rhythm, No Murmur Capillary Refill: Less Than 3 Seconds Gastrointestinal: non tender, soft Extremity: Other (s/p BKA LLE) Neurologic/Psychiatric: Alert, Oriented x3 Skin: Normal Color, Warm/Dry, Other (multiple wounds/scabs of varying ages on arms and legs) Results Lab Laboratory Tests 06/16/19 03:40 06/16/19 19:17 06/17/19 06:01 Assessment/Plan Assessment/Plan Sepsis -Cefepime, Flagyl -Cdiff toxin-- neg RLL pneumonia Bacteremia -Cultures reviewed UTI Possible aspiration PNA -Aspiration precautions COPDAE -SVNS Anemia -Monitor Diarrhea -CDiff toxin- neg CAD CHF ROSE OSBORN DO Jun 17, 2019 08:00
[2019-06-17] MEDS: LORATADINE (CLARITIN) 10 MG TAB PO SCH (09:34)
[2019-06-17] MEDS: DULoxetine 30 MG (CYMBALTA) CAP PO SCH (09:34)
[2019-06-17] MEDS: FLUoxetine HCL 20 MG (PROzac) CAP PO SCH (09:35)
[2019-06-17] MEDS: GABAPENTIN 600 MG (NEURONTIN) TAB PO SCH ×2 (09:35→20:33)
[2019-06-17] MEDS: TOLTERODINE LA 4 MG (DETROL) CAP PO SCH (09:35)
--- NOTE | 2019-06-17 09:48 | Progress Note - Hospitalist ---
Subjective HPI/CC On Admission Date Seen by Provider: Jun 17, 2019 Time Seen by Provider: 12:33 Pt was admitted for severe sepsis due t o RLL PNA. She is unable to provide me any history at this time due to obtundation. She reportedly presented to the ER with CC of fever, nausea, vomiting, and diarrhea. She was febrile here as well with temps up to 103. CT Chest showed a RLE and urine was consistent with a UTI. She was found to have an elevated lactic acid as well qualifying her for severe sepsis. She complained of pain throughout her stay in the ER and received fentanyl and morphine. On my arrival to the bedside she was altered and responded only to sternal rub necessitating Narcan with significant improvement in mentation. Subjective/Events-last exam Patient reports feeling much better. She did ask me if PETER the nurse practitioner in the ER was my though so unsure if she still has some encephalopathy or at baseline confusion. Remains intermittently febrile. Focused Exam Lactate Level 06/14/19 13:18: Lactic Acid Level 2.95*H 06/14/19 15:50: Lactic Acid Level 2.27*H 06/14/19 17:39: Lactic Acid Level 1.53 Objective Exam Vital Signs Vital Signs Date Time Temp Pulse Resp B/P (MAP) Pulse Ox O2 Delivery O2 Flow Rate FiO2 06/17/19 11:33 94 Nasal Cannula 4.00 06/17/19 08:00 98.8 96 20 146/82 (103) 06/17/19 01:25 36 Capillary Refill : Less Than 3 Seconds General Appearance: No Apparent Distress, Chronically ill Neck: No Thyromegaly Respiratory: Lungs Clear, No Accessory Muscle Use, No Respiratory Distress Cardiovascular: Regular Rate, Rhythm, No Murmur Gastrointestinal: Normal Bowel Sounds, Non Tender, Soft; No Distended, No Guarding, No Rebound Extremity: Other (s/p BKA LLE) Neurologic/Psychiatric: Alert, Oriented x3 Skin: Other (multiple wounds/scabs of varying ages on arms and legs) Results/Procedures Lab Laboratory Tests 06/16/19 19:17 06/17/19 06:01 Patient resulted labs reviewed. Imaging: Reviewed Imaging Report Assessment/Plan Assessment and Plan Assess & Plan/Chief Complaint severe sepsis Diagnosis/Problems Diagnosis/Problems (1) Sepsis Status: Resolved Assessment & Plan: Leukocytosis improving Fever overnight PNA and UTI Continue Cefepime/ flagyl c diff negative Urine growing e coli and pseudomonas Blood shows clostridium perfringens and aerococcus viridans Qualifiers: Sepsis type: sepsis due to unspecified organism Qualified Codes: A41.9 - Sepsis, unspecified organism Resolution Date/Time: 11/30/18 @ 13:24 (2) Urinary tract infection Status: Resolved Assessment & Plan: antibiotics as above culture as above Qualifiers: Urinary tract infection type: acute cystitis Hematuria presence: without hematuria Qualified Codes: N30.00 - Acute cystitis without hematuria Resolution Date/Time: 12/01/18 @ 11:19 (3) Pneumonia Status: Acute Assessment & Plan: Concern for aspiration with vomiting Cefepime/flagyl as above Pulm consulted Still on 4lpm up from baseline of 2lpm Qualifiers: Pneumonia type: due to unspecified organism Laterality: right Lung location: lower lobe of lung Qualified Codes: J18.1 - Lobar pneumonia, unspecified organism (4) Altered mental status Status: Resolved Assessment & Plan: resolved but appears to have baseline confusion Qualifiers: Altered mental status type: somnolence Qualified Codes: R40.0 - Somnolence Resolution Date/Time: 06/15/19 @ 10:00 (5) Anemia Status: Chronic Assessment & Plan: Anemia of chronic disease trend transfuse to keep Hgb 8 given CAD and critical illness 1 unit ordered today Qualifiers: Anemia type: unspecified type Qualified Codes: D64.9 - Anemia, unspecified (6) Diarrhea Status: Resolved Assessment & Plan: negative c diff cont probiotic Qualifiers: Diarrhea type: unspecified type Qualified Codes: R19.7 - Diarrhea, unspecified Resolution Date/Time: 12/01/18 @ 11:19 (7) CAD (coronary artery disease) Status: Chronic Assessment & Plan: last cath 02/2018 showed patent stent Continue home meds Qualifiers: Coronary Disease-Associated Artery/Lesion type: unspecified vessel or lesion type [place] vs. 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 - Type 2 diabetes mellitus with other skin complications (9) HTN (hypertension) Status: Chronic Assessment & Plan: Elevated while at bedside but will hold given sepsis Resume home meds Qualifiers: Hypertension type: essential hypertension Qualified Codes: I10 - Essential (primary) hypertension (10) COPD (chronic obstructive pulmonary disease) Status: Chronic Assessment & Plan: Chronic oxygen requirement Dr Merino consulted, appreciate recs Qualifiers: COPD type: unspecified COPD Qualified Codes: J44.9 - Chronic obstructive pulmonary disease, unspecified (11) Counseling regarding end of life decision making Assessment & Plan: Continued discussions of CODE STATUS today and patient elects to be DO NOT RESUSCITATE Offered assistance with advanced directive that she does not have had more but she declined stating "I do not want my sister to get anything" Informed her that it advanced directive has nothing to do with financial matters and she still declined Clinical Quality Measures DVT/VTE Risk/Contraindication: Risk Factor Score Per Nursin RFS Level Per Nursing on Admit: 4+=Very High KOFFI CASEY MD Jun 17, 2019 09:48
[2019-06-17] MEDS: meTOprolol TARTRATE 25 MG (LOPRESSOR) TABLET PO SCH ×2 (09:49→20:33)
[2019-06-17] MEDS: amLODIPine 5 MG (NORVASC) TAB PO SCH (09:49)
--- NOTE | 2019-06-17 11:16 | Occupational Therapy Eval ---
OT Evaluation-General/PLF Medical Diagnosis Admission Date Jun 14, 2019 at 14:21 Medical Diagnosis: sepsis Onset Date: Jun 14, 2019 Therapy Diagnosis Therapy Diagnosis: impaired self care skills Height/Weight Height (Feet): 5 Height (Inches): 7.00 Weight (Pounds): 201 Weight (Ounces): 8.0 Precautions Precautions/Isolations: Fall Prevention, Standard Precautions Safety Interventions: Bed Exit Alarm Referral Physician: Ron Medical History Pertinent Medical History: Arthritis, CAD, DM, GERD, HTN Additional Medical History aneurysm, high cholesterol, headaches/migraines, UTI-chronic, back injury, chronic back pain, anxiety, depression, right BKA Current History Pt admitted with severe sepsis secondary RLL PNA Reviewed History: Yes Social History Home: Apartment Current Living Status: Other Family (sister) Steps Into Home: 5 (Pt states she has been crawling up the steps into her home.) ADL-Prior Level of Function Therapy Code Descriptions/Definitions Functional [place] Measure: 0=Not Assessed/NA 4=Minimal Assistance 1=Total Assistance 5=Supervision or Setup 2=Maximal Assistance 6=Modified [place] 3=Moderate Assistance 7=Complete [place] Therapy Quality Codes: 6 Independent with activity with or without an assistive device 5 Patient requires set up or clean up by helper. Patient completes activity by themselves 4 Supervision or touching assist (CGA). [place] provide cues , steadying assist 3 The helper provides less than half the effort to complete the activity 2 The helper provides more than half the effort to complete the activity 1 Dependent. The helper does all the effort to complete an activity 7 Patient refused to complete or attempt activity 9 The patient did not perform the activity before the current illness or injury 88 Not attempted due to Medical conditions or safety concerns Functional Abilities and Goals: Independent: Patient completed the activities by him/herself, with or without an assistive device, with no assistance from a helper. Needed Some Help: Patient needed partial assistance from another person to complete activities. Dependent: A helper completed the activities for the patient. Unknown: Not Applicable: ADL PLOF Comments Pt reports completing basic self care without assist. States sister is nearby when she showers. Primarily uses w/c for mobility, but states she has a prosthesis for right LE and can walk short distances with FWW. Has a home health aide 33 hrs/wk who assists with shopping and housework. Self Care: Needed Some Help DME/Equipment: Bath Chair, Grab Bars, Shower OT Current Status Subjective Pt sitting in chair, agrees to therapy. Pt reports 8/10 back pain. Mental Status/Objective Patient Orientation: Person, Place Attachments: Shah Catheter, IV, Oxygen Current Glasses/Contacts: Yes Hearing Aids: No Dentures/Partials: No Hand Dominance: Right Upper Extremity ROM Grossly WFL Upper Extremity Coordination Intact Upper Extremity Sensation Intact per pt report Upper Extremity Strength Grossly 4/5 ADL-Treatment ADL-Current Pt sitting in chair eating chips when therapist arrives. Pt drinks from cup with set up. Pt participated in UE assessment while seated. Grooming tasks completed seated in chair. Pt brushed hair and washed face with setup. Declined other activity at this time. Sitting in chair with needs met after session. Therapy Code Descriptions/Definitions Functional [place] Measure: 0=Not Assessed/NA 4=Minimal Assistance 1=Total Assistance 5=Supervision or Setup 2=Maximal Assistance 6=Modified [place] 3=Moderate Assistance 7=Complete [place] Therapy Quality Codes: 6 Independent with activity with or without an assistive device 5 Patient requires set up or clean up by helper. Patient completes activity by themselves 4 Supervision or touching assist (CGA). [place] provide cues , steadying assist 3 The helper provides less than half the effort to complete the activity 2 The helper provides more than half the effort to complete the activity 1 Dependent. The helper does all the effort to complete an activity 7 Patient refused to complete or attempt activity 9 The patient did not perform the activity before the current illness or injury 88 Not attempted due to Medical conditions or safety concerns Eating (FIM): 5 Grooming (FIM): 5 Education OT Patient Education: Rehab process Teaching Recipient: Patient Teaching Methods: Discussion Response to Teaching: Reinforcement Needed OT Short Term Goals Short Term Goals 1=Demonstrate adherence to instructed precautions during ADL tasks. 2=Patient will verbalize/demonstrate understanding of assistive devices/modifications for ADL. 3=Patient will improve strength/tolerance for activity to enable patient to perform ADL's. OT Quarrying Manager Goals Quarrying Manager Goals Time Frame: Jul 01, 2019 Grooming(FIM): 6 Bathing(FIM): 4 Upper Body Dressing(FIM): 5 Lower Body Dressing(FIM): 5 Toileting(FIM): 5 Toilet/Commode Transfer(FIM): 5 Additional Goals: 1-Demonstrate ADL Tasks, 2-Verbalize Understanding, 3- ImproveStrength/John 1=Demonstrate adherence to instructed precautions during ADL tasks. 2=Patient will verbalize/demonstrate understanding of assistive devices/modifications for ADL. 3=Patient will improve strength/tolerance for activity to enable patient to perform ADL's. OT Education/Plan Problem List/Assessment Assessment: Decreased Activ Tolerance, Decreased UE Strength, Dependent Transfers, Impaired Self-Care Skills Pt to benefit from skilled OT intervention for ADL training, transfers, strengthening, and safety education to increase level of independence and allow safe discharge plan. Discharge Recommendations Plan/Recommendations: Continue POC Treatment Plan/Plan of Care Treatment,Training & Education: Yes Patient would benefit from OT for education, treatment and training to promote independence in ADL's, mobility, safety and/or upper extremity function for ADL's. Plan of Care: ADL Retraining, Functional Mobility, UE Funct Exercise/Act Treatment Duration: Jul 01, 2019 Frequency: 5 times per week Estimated Hrs Per Day: .25 hour per day Rehab Potential: Fair Time/GCodes Start Time: 10:32 Stop Time: 10:45 Total Time Billed (hr/min): 13 Billed Treatment Time 1 visit, LURDES(13minutes) МАРИНА GONZALEZ OT Jun 17, 2019 11:16
--- NOTE | 2019-06-17 11:39 | Physical Therapy Evaluation ---
PT Evaluation-General Medical Diagnosis Admission Date Jun 14, 2019 at 14:21 Medical Diagnosis: sepsis Onset Date: Jun 14, 2019 Therapy Diagnosis Therapy Diagnosis: impaired mobility, strength Height/Weight Height (Feet): 5 Height (Inches): 7.00 Weight (Pounds): 201 Weight (Ounces): 8.0 Precautions Precautions/Isolations: Fall Prevention, Standard Precautions Weight Bear Status Right Lower Extremity: Right Non Weight Bearing Referral Physician: Ron Reason for Referral: Evaluation/Treatment Medical History Pertinent Medical History: Arthritis, CAD, DM, GERD, HTN Additional Medical History Past Medical History Surgeries: Bladder Surgery, Cardiac, Coronary Stent, Hysterectomy, Orthopedic, Vascular Surgery Currently Using CPAP: No Currently Using BIPAP: No Cardiac: Aneurysm, Coronary Artery Disease, High Cholesterol, Hypertension Neurological: Headaches /Migraines 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: No Sexually Transmitted Disease: No HIV/AIDS: No 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 Disorders: Denies Hysterectomy, Menopausal Genitourinary: UTI-Chronic Gastrointestinal: Gastroesophageal Reflux Musculoskeletal: Arthritis, Back Injury, Chronic Back Pain, Fractures Endocrine: Diabetes, Non-Insulin dep Loss of Vision: Bilateral Hearing Impairment: Denies Psychosocial: Anxiety, Depression History of Blood Disorders: No Reviewed History: Yes Social History Home: Apartment Current Living Status: Other Family (sister) Entry Into Home: Stairs With Railing Patient states she has been crawling up the stairs at home. Prior/Core FIM Prior Level of Function Therapy Code Descriptions/Definitions Functional [place] Measure: 0=Not Assessed/NA 4=Minimal Assistance 1=Total Assistance 5=Supervision or Setup 2=Maximal Assistance 6=Modified [place] 3=Moderate Assistance 7=Complete [place] Therapy Quality Codes: 6 Independent with activity with or without an assistive device 5 Patient requires set up or clean up by helper. Patient completes activity by themselves 4 Supervision or touching assist (CGA). [place] provide cues , steadying assist 3 The helper provides less than half the effort to complete the activity 2 The helper provides more than half the effort to complete the activity 1 Dependent. The helper does all the effort to complete an activity 7 Patient refused to complete or attempt activity 9 The patient did not perform the activity before the current illness or injury 88 Not attempted due to Medical conditions or safety concerns Functional Abilities and Goals: Independent: Patient completed the activities by him/herself, with or without an assistive device, with no assistance from a helper. Needed Some Help: Patient needed partial assistance from another person to complete activities. Dependent: A helper completed the activities for the patient. Unknown: Not Applicable: Bed Mobility: 6 Transfers (B,C,W/C) (FIM): 6 Gait: 6 Stairs: 6 Indoor Mobility (Ambulation): Independent Stairs: Independent Patient states she uses a rolling walker and her prosthetic leg in the home and a wheelchair outside of the home. PT Evaluation-Current Subjective Patient in recliner pre tx, agrees to PT, has 9/10 back pain, states she has already had pain meds. Patient refuses to ambulate or even stand due to her back pain. She agrees to the eval and perform some LE exercises. Pt/Family Goals to be independent at home Objective Patient Orientation: Person, Place Attachments: Oxygen, Shah Catheter ROM/Strength ROM Lower Extremities WNL except RLE due to BKA Strength Lower Extremities LLE (hip flexion 3+/5, knee flexion 4/5, knee extension 4/5, dorsiflexion 4+/5), RLE (hip flexion 3+/5, knee flexion 4/5, knee extension 4/5) Sensory Vision: Functional Hearing: Functional Hand Dominance: Right Sensation Right Lower Extremit: Intact Sensation Left Lower Extremity: Intact Transfers Therapy Code Descriptions/Definitions Functional [place] Measure: 0=Not Assessed/NA 4=Minimal Assistance 1=Total Assistance 5=Supervision or Setup 2=Maximal Assistance 6=Modified [place] 3=Moderate Assistance 7=Complete [place] Balance Sitting Static: Normal Treatment BLE exercises x20 (AP on left side, LAQ, seated marching) Assessment/Needs Patient has impaired mobility, strength. She is unwilling to stand or try to ambulate at this time due to back pain. Patient in recliner post tx with nurse call, phone, tray, all needs met. Rehab Potential: Fair PT Short Term Goals Short Term Goals Time Frame: Jun 24, 2019 Transfers (B,C,W/C) (FIM): 4 Gait (FIM): 1 Gait Distance Comment: 10' Gait Level of Assist: 4 Gait Assistive Device: FWW PT Plan Problem List Problem List: Activity Tolerance, Functional Strength, Safety, Balance, Gait, Transfer, Bed Mobility, ROM Treatment/Plan Treatment Plan: Continue Plan of Care Treatment Plan: Bed Mobility, Education, Functional Activity John, Functional Strength, Gait, Safety, Therapeutic Exercise, Transfers Treatment Duration: Jun 24, 2019 Frequency: 6 times per week Estimated Hrs Per Day: .25 hour per day Patient and/or Family Agrees t: Yes Safety Risks/Education Patient Education: Correct Positioning, Safety Issues Teaching Recipient: Patient Teaching Methods: Demonstration, Discussion Response to Teaching: Reinforcement Needed Discharge Recommendations Plan Patient will perform bed mobility and transfer training, balance and endurance training, functional strengthening, gait training, and education, to improve functional mobility and independence at home. Therapy D/C Recommendations: Home w/ Family Support, Group Home (TCU/NH) Time/GCodes Time In: 1115 Time Out: 1130 Total Billed Treatment Time: 15 Total Billed Treatment 1 visit LURDES 15' MARISA SANDS PT Jun 17, 2019 11:39
[2019-06-17] MEDS: MEROPENEM 500 MG in WATER (STERILE) FOR INJECTION 10 ML IV SCH ×2 (16:10→22:34)
--- NOTE | 2019-06-17 16:27 | NUR ---
CM/SS. Discussion with hospitalist that patient had what appeared to be feces matted to her remaining foot during exam for history/physical. This, coupled with patient's noted wounds/scabs of varying ages on arms and legs, prompted a report to [facility] to assess living situation and circumstances. Intake #[id number] completed this p.m.
[2019-06-17] MEDS: MONTELUKAST 10 MG (SINGULAIR) TAB PO SCH (17:39)
[2019-06-17] MEDS: traZODone 100 MG (DESYREL) TAB PO SCH (20:33)
[2019-06-17] MEDS: ATORVASTATIN 40 MG (LIPITOR) TABLET PO SCH (20:33)
[2019-06-17] MEDS: MIRTAZAPINE 15 MG (REMERON) TAB PO SCH (20:33)
[2019-06-17] MEDS: BACLOFEN 10 MG (LIORESAL) TAB PO PRN (22:36)
[2019-06-18] VITALS (7 sets, daily range): BP systolic 120–152; BP diastolic 67–83
[2019-06-18] MEDS: RT-ALBUTEROL/IPRATROPIUM 3 ML (DUONEB) VIAL INH SCH ×6 (02:41→22:40)
[2019-06-18] MEDS: MEROPENEM 500 MG in WATER (STERILE) FOR INJECTION 10 ML IV SCH ×4 (03:28→21:33)
[2019-06-18] MEDS: oxyCODONE/APAP 5/325MG (PERCOCET 5) TABLET PO PRN ×5 (03:28→21:33)
[2019-06-18] MEDS: LACTOBACILLUS ACIDOPHILUS (PROBIOTIC) CAPSULE PO SCH ×3 (06:11→16:04)
[2019-06-18] MEDS: LEVOTHYROXINE 50 MCG (LEVOTHROID) TAB PO SCH (06:11)
[2019-06-18] MEDS: BACLOFEN 10 MG (LIORESAL) TAB PO PRN (06:11)
[2019-06-18] MEDS: metroNIDAZOLE 500MG/100ML IVPB 100 ML IV SCH ×2 (06:15→17:43)
[2019-06-18 06:19] LABS: BASOPHILS % (AUTO) 0 % (0-10); EOSINOPHILS # (AUTO) 0.4 10^3/uL (0.0-0.3); EOSINOPHILS % (AUTO) 4 % (0-10); HEMATOCRIT 27 % (35-52); HEMOGLOBIN 7.4 G/DL (11.5-16.0); LYMPHOCYTES # (AUTO) 1.2 X 10^3 (1.0-4.0); LYMPHOCYTES % (AUTO) 12 % (12-44); MEAN CORPUSCULAR HGB CONC 28 G/DL (32-36); MEAN CORPUSCULAR VOLUME 73 FL (80-99); MEAN PLATELET VOLUME 10.9 FL (7.4-10.4); MONOCYTES # (AUTO) 1.1 X 10^3 (0.0-1.0); MONOCYTES % (AUTO) 12 % (0-12); NEUTROPHILS % (AUTO) 72 % (42-75); PLATELET COUNT 263 10^3/uL (130-400); RED CELL DISTRIBUTION WIDTH 19.2 % (10.0-14.5); WHITE BLOOD COUNT 9.7 10^3/uL (4.3-11.0)
[2019-06-18 06:31] LABS: MEAN CORPUSCULAR HEMOGLOBIN 20 PG (25-34)
[2019-06-18 06:38] LABS: ALANINE AMINOTRANSFERASE 10 U/L (0-55); ALBUMIN 2.3 GM/DL (3.2-4.5); ALKALINE PHOSPHATASE 125 U/L (40-136); BILIRUBIN,TOTAL 0.1 MG/DL (0.1-1.0); BUN/CREATININE RATIO 10; CALCIUM 8.3 MG/DL (8.5-10.1); CARBON DIOXIDE 26 MMOL/L (21-32); CHLORIDE 109 MMOL/L (98-107); CREATININE SERUM 0.67 MG/DL (0.60-1.30); GFR ESTIMATED > 60; GLUCOSE 93 MG/DL (70-105); MAGNESIUM 1.4 MG/DL (1.8-2.4); SODIUM 144 MMOL/L (135-145); TOTAL PROTEIN 5.2 GM/DL (6.4-8.2)
[2019-06-18] MEDS: TOLTERODINE LA 4 MG (DETROL) CAP PO SCH (08:36)
[2019-06-18] MEDS: GABAPENTIN 600 MG (NEURONTIN) TAB PO SCH ×2 (08:36→21:34)
[2019-06-18] MEDS: meTOprolol TARTRATE 25 MG (LOPRESSOR) TABLET PO SCH ×2 (08:37→21:33)
[2019-06-18] MEDS: DULoxetine 30 MG (CYMBALTA) CAP PO SCH (08:37)
[2019-06-18] MEDS: LORATADINE (CLARITIN) 10 MG TAB PO SCH (08:37)
[2019-06-18] MEDS: FLUoxetine HCL 20 MG (PROzac) CAP PO SCH (08:37)
[2019-06-18] MEDS: amLODIPine 5 MG (NORVASC) TAB PO SCH (08:37)
--- NOTE | 2019-06-18 08:37 | Pulmonary Progress Note ---
Subjective Time Seen by a Provider: 07:11 Subjective/Events-last exam No complications noted. Sepsis Event Evaluation Height, Weight, BMI Height: 5'7.00" Weight: 201lbs. 8.0oz. 91.261863dx; 28.5 BMI Method:Stated Exam Exam Vital Signs Date Time Temp Pulse Resp B/P (MAP) Pulse Ox O2 Delivery O2 Flow Rate FiO2 06/18/19 06:42 92 Nasal Cannula 3.00 06/18/19 04:00 100.1 97 18 137/79 (98) 95 Nasal Cannula 4.00 06/18/19 00:00 98.9 94 19 129/71 (90) 94 Nasal Cannula 4.00 06/17/19 21:00 Nasal Cannula 3.00 06/17/19 19:24 100.6 95 20 139/67 (91) 92 Nasal Cannula 4.00 06/17/19 18:43 91 Nasal Cannula 3.00 06/17/19 15:50 99.3 90 20 168/90 (116) 94 Nasal Cannula 4.00 06/17/19 15:49 95 Nasal Cannula 4.00 06/17/19 12:00 98.8 83 20 126/70 (88) 94 Nasal Cannula 4.00 06/17/19 11:33 94 Nasal Cannula 4.00 06/17/19 09:00 Nasal Cannula 4.00 I & O 06/18/19 06:59 Intake Total 2250 ml Output Total 4440 ml Balance -2190 ml Height & Weight Height: 5'7.00" Weight: 201lbs. 8.0oz. 91.313091pu; 28.5 BMI Method:Stated General Appearance: No Apparent Distress, Chronically ill Neck: No Thyromegaly Respiratory: Lungs Clear, No Accessory Muscle Use, No Respiratory Distress Cardiovascular: Regular Rate, Rhythm, No Murmur Capillary Refill: Less Than 3 Seconds Gastrointestinal: non tender, soft Extremity: Other (s/p BKA LLE) Neurologic/Psychiatric: Alert, Oriented x3 Skin: Other (multiple wounds/scabs of varying ages on arms and legs) Results Lab Laboratory Tests 06/16/19 19:17 06/17/19 06:01 06/18/19 05:05 Assessment/Plan Assessment/Plan Sepsis -Merrem -Cdiff toxin-- neg RLL pneumonia Bacteremia -Cultures reviewed UTI with ESBL Possible aspiration PNA -Aspiration precautions COPDAE -SVNS -Oxygen Anemia -Monitor Diarrhea -CDiff toxin- neg CAD CHF ROSE OSBORN DO Jun 18, 2019 08:37
[2019-06-18] MEDS: ADVAIR HFA 115/21 MCG INHALER 8 GM IH SCH ×2 (08:57→18:27)
--- NOTE | 2019-06-18 10:46 | Physical Therapy Daily Note ---
PT Daily Note-Current Subjective Pt. up in chair and agrees to LE exercises only. She says "I'm not going to stand." Pt. denies pain. Mental Status Patient Orientation: Person, Place, Time, Situation Attachments: Oxygen, Shah Catheter, IV Transfers Therapy Code Descriptions/Definitions Functional Bertie Measure: 0=Not Assessed/NA 4=Minimal Assistance 1=Total Assistance 5=Supervision or Setup 2=Maximal Assistance 6=Modified Bertie 3=Moderate Assistance 7=Complete Bertie Therapy Quality Codes: 6 Independent with activity with or without an assistive device 5 Patient requires set up or clean up by helper. Patient completes activity by themselves 4 Supervision or touching assist (CGA). [place] provide cues , steadying assist 3 The helper provides less than half the effort to complete the activity 2 The helper provides more than half the effort to complete the activity 1 Dependent. The helper does all the effort to complete an activity 7 Patient refused to complete or attempt activity 9 The patient did not perform the activity before the current illness or injury 88 Not attempted due to Medical conditions or safety concerns Weight Bearing Right Lower Extremity: Right Non Weight Bearing Exercises Supine Ex: Ankle pumps (L only), Quad Set, Glut sets, Heel Slides, Straight leg raise, Hip abd/add Supine Reps: 15 Treatments LE exercises Assessment Current Status: Good Progress Pt. did well with LE exercises, declined transfers with PT, however patient already up in bedside chair. All needs met post session, call light in reach. PT Short Term Goals Short Term Goals Time Frame: Jun 24, 2019 Transfers (B,C,W/C) (FIM): 4 Gait (FIM): 1 Gait Distance Comment: 10' Gait Level of Assist: 4 Gait Assistive Device: FWW PT Plan Treatment/Plan Treatment Plan: Continue Plan of Care Treatment Plan: Bed Mobility, Education, Functional Activity John, Functional Strength, Gait, Safety, Therapeutic Exercise, Transfers Treatment Duration: Jun 24, 2019 Frequency: 6 times per week Estimated Hrs Per Day: .25 hour per day Patient and/or Family Agrees t: Yes Time/GCodes Time In: 1037 Time Out: 1047 Total Billed Treatment Time: 10 Total Billed Treatment 1, Ex 10' CINDY RICE PT Jun 18, 2019 10:46
--- NOTE | 2019-06-18 11:10 | Progress Note - Hospitalist ---
Subjective HPI/CC On Admission Date Seen by Provider: Jun 18, 2019 Time Seen by Provider: 11:05 Pt was admitted for severe sepsis due t o RLL PNA. She is unable to provide me any history at this time due to obtundation. She reportedly presented to the ER with CC of fever, nausea, vomiting, and diarrhea. She was febrile here as well with temps up to 103. CT Chest showed a RLE and urine was consistent with a UTI. She was found to have an elevated lactic acid as well qualifying her for severe sepsis. She complained of pain throughout her stay in the ER and received fentanyl and morphine. On my arrival to the bedside she was altered and responded only to sternal rub necessitating Narcan with significant improvement in mentation. Subjective/Events-last exam patient reports feeling well. Sitting at chair looking out window. No complaints. Discussed results of culture. Objective Exam Vital Signs Vital Signs Date Time Temp Pulse Resp B/P (MAP) Pulse Ox O2 Delivery O2 Flow Rate FiO2 06/18/19 11:01 94 Nasal Cannula 3.00 06/18/19 08:00 98.5 88 18 127/75 (92) 06/17/19 01:25 36 Capillary Refill : Less Than 3 Seconds General Appearance: No Apparent Distress, Chronically ill Neck: No Thyromegaly Respiratory: Lungs Clear, No Accessory Muscle Use, No Respiratory Distress Cardiovascular: Regular Rate, Rhythm Gastrointestinal: Normal Bowel Sounds, Non Tender, Soft; No Distended, No Guarding, No Rebound Extremity: Other (s/p left BKA) Neurologic/Psychiatric: Alert, Oriented x3, Normal Mood/Affect Skin: Other (multiple wounds/scabs of varying ages on arms and legs) Results/Procedures Lab Laboratory Tests 06/18/19 05:05 Patient resulted labs reviewed. Assessment/Plan Assessment and Plan Assess & Plan/Chief Complaint severe sepsis Diagnosis/Problems Diagnosis/Problems (1) Sepsis Status: Resolved Assessment & Plan: Leukocytosis improving Remains intermittently febrile but curve trending down PNA and UTI Continue Cefepime/ flagyl c diff negative Urine growing ESBL e coli in urine Merrem ordered yesterday Blood shows clostridium perfringens and aerococcus viridans contineu flagyl Qualifiers: Sepsis type: sepsis due to unspecified organism Qualified Codes: A41.9 - Sepsis, unspecified organism Resolution Date/Time: 11/30/18 @ 13:24 (2) Urinary tract infection Status: Resolved Assessment & Plan: antibiotics as above culture as above Qualifiers: Urinary tract infection type: acute cystitis Hematuria presence: without hematuria Qualified Codes: N30.00 - Acute cystitis without hematuria Resolution Date/Time: 12/01/18 @ 11:19 (3) Pneumonia Status: Acute Assessment & Plan: Concern for aspiration with vomiting Merrem/flagyl as above Pulm consulted On 3lpm up from baseline of 2lpm Qualifiers: Pneumonia type: due to unspecified organism Laterality: right Lung location: lower lobe of lung Qualified Codes: J18.1 - Lobar pneumonia, unspecified organism (4) Anemia Status: Chronic Assessment & Plan: Anemia of chronic disease trend transfuse to keep Hgb 8 given CAD and critical illness Will hold today given intermittent fevers still as to not confound disease process Qualifiers: Anemia type: unspecified type Qualified Codes: D64.9 - Anemia, unspecified (5) Altered mental status Status: Resolved Assessment & Plan: resolved but appears to have baseline confusion Qualifiers: Altered mental status type: somnolence Qualified Codes: R40.0 - Somnolence Resolution Date/Time: 06/15/19 @ 10:00 (6) Diarrhea Status: Resolved Assessment & Plan: negative c diff cont probiotic Qualifiers: Diarrhea type: unspecified type Qualified Codes: R19.7 - Diarrhea, unspecified Resolution Date/Time: 12/01/18 @ 11:19 (7) CAD (coronary artery disease) Status: Chronic Assessment & Plan: last cath 02/2018 showed patent stent Continue home meds Qualifiers: Coronary Disease-Associated Artery/Lesion type: unspecified vessel or lesion type [place] vs. 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 - Type 2 diabetes mellitus with other skin complications (9) HTN (hypertension) Status: Chronic Assessment & Plan: Elevated while at bedside but will hold given sepsis Resume home meds Qualifiers: Hypertension type: essential hypertension Qualified Codes: I10 - Essential (primary) hypertension (10) COPD (chronic obstructive pulmonary disease) Status: Chronic Assessment & Plan: Chronic oxygen requirement Dr Merino consulted, appreciate recs Qualifiers: COPD type: unspecified COPD Qualified Codes: J44.9 - Chronic obstructive pulmonary disease, unspecified (11) Counseling regarding end of life decision making Assessment & Plan: Continued discussions of CODE STATUS today and patient elects to be DO NOT RESUSCITATE Offered assistance with advanced directive that she does not have had more but she declined stating "I do not want my sister to get anything" Informed her that it advanced directive has nothing to do with financial matters and she still declined (12) Discharge planning issues Assessment & Plan: n admission patient had dog feces caked to feet, and multiple wounds of varying ages on arms and legs which she reports are secondary to the dogs She reports to physical therapy that she has to crawl up her steps social work has been consulted and she will likely need hotlined at discharge Clinical Quality Measures DVT/VTE Risk/Contraindication: Risk Factor Score Per Nursin RFS Level Per Nursing on Admit: 4+=Very High KOFFI CASEY MD Jun 18, 2019 11:10
--- NOTE | 2019-06-18 14:33 | NUR ---
REPORT GIVEN TO GIOVANI SCHOFIELD.
[2019-06-18] MEDS: MONTELUKAST 10 MG (SINGULAIR) TAB PO SCH (16:05)
[2019-06-18] MEDS: LACTATED RINGERS 1,000 ML IV SCH (16:08)
[2019-06-18] MEDS: traZODone 100 MG (DESYREL) TAB PO SCH (21:33)
[2019-06-18] MEDS: ATORVASTATIN 40 MG (LIPITOR) TABLET PO SCH (21:33)
[2019-06-18] MEDS: MIRTAZAPINE 15 MG (REMERON) TAB PO SCH (21:34)
[2019-06-19] MEDS: BACLOFEN 10 MG (LIORESAL) TAB PO PRN (00:33)
[2019-06-19] MEDS: oxyCODONE/APAP 5/325MG (PERCOCET 5) TABLET PO PRN ×5 (02:25→20:36)
[2019-06-19] MEDS: MEROPENEM 500 MG in WATER (STERILE) FOR INJECTION 10 ML IV SCH ×4 (03:31→20:36)
[2019-06-19 04:00] VITALS: BP 118/76
[2019-06-19 05:35] LABS: BASOPHILS % (AUTO) 0 % (0-10); EOSINOPHILS # (AUTO) 0.5 10^3/uL (0.0-0.3); EOSINOPHILS % (AUTO) 4 % (0-10); HEMATOCRIT 30 % (35-52); HEMOGLOBIN 8.2 G/DL (11.5-16.0); LYMPHOCYTES # (AUTO) 1.8 X 10^3 (1.0-4.0); LYMPHOCYTES % (AUTO) 16 % (12-44); MEAN CORPUSCULAR HEMOGLOBIN 20 PG (25-34); MEAN CORPUSCULAR HGB CONC 28 G/DL (32-36); MEAN CORPUSCULAR VOLUME 73 FL (80-99); MEAN PLATELET VOLUME 10.8 FL (7.4-10.4); MONOCYTES # (AUTO) 1.2 X 10^3 (0.0-1.0); MONOCYTES % (AUTO) 10 % (0-12); NEUTROPHILS # (AUTO) 7.7 X 10^3 (1.8-7.8); NEUTROPHILS % (AUTO) 69 % (42-75); PLATELET COUNT 330 10^3/uL (130-400); WHITE BLOOD COUNT 11.2 10^3/uL (4.3-11.0)
[2019-06-19 05:56] LABS: ALANINE AMINOTRANSFERASE 11 U/L (0-55); ALBUMIN 2.5 GM/DL (3.2-4.5); ALKALINE PHOSPHATASE 111 U/L (40-136); BILIRUBIN,TOTAL 0.1 MG/DL (0.1-1.0); BUN/CREATININE RATIO 12; CALCIUM 9.1 MG/DL (8.5-10.1); CARBON DIOXIDE 27 MMOL/L (21-32); CHLORIDE 105 MMOL/L (98-107); CREATININE SERUM 0.66 MG/DL (0.60-1.30); GFR ESTIMATED > 60; GLUCOSE 100 MG/DL (70-105); POTASSIUM 4.4 MMOL/L (3.6-5.0); SODIUM 142 MMOL/L (135-145); TOTAL PROTEIN 5.7 GM/DL (6.4-8.2)
[2019-06-19] MEDS: LACTOBACILLUS ACIDOPHILUS (PROBIOTIC) CAPSULE PO SCH ×3 (06:33→16:23)
[2019-06-19] MEDS: metroNIDAZOLE 500MG/100ML IVPB 100 ML IV SCH ×2 (06:33→17:11)
[2019-06-19] MEDS: LEVOTHYROXINE 50 MCG (LEVOTHROID) TAB PO SCH (06:33)
--- NOTE | 2019-06-19 07:12 | Pulmonary Progress Note ---
Subjective Time Seen by a Provider: 08:00 Subjective/Events-last exam Pt feels improved. Still requiring 5 liters of oxygen Sepsis Event Evaluation Height, Weight, BMI Height: 5'7.00" Weight: 201lbs. 8.0oz. 91.275175dj; 28.5 BMI Method:Stated Exam Exam Vital Signs Date Time Temp Pulse Resp B/P (MAP) Pulse Ox O2 Delivery O2 Flow Rate FiO2 06/19/19 04:00 97.6 88 20 118/76 (90) 90 Nasal Cannula 3.00 06/18/19 23:55 98.2 88 18 136/77 (96) 91 Nasal Cannula 3.00 06/18/19 20:00 Nasal Cannula 3.00 06/18/19 20:00 98.2 101 18 145/82 (103) 91 Nasal Cannula 3.00 06/18/19 18:31 94 Nasal Cannula 3.00 06/18/19 16:00 99.6 95 20 120/67 (84) 91 Nasal Cannula 3.00 06/18/19 14:57 90 Nasal Cannula 3.00 06/18/19 12:00 99.2 91 20 152/83 (106) 91 Nasal Cannula 3.00 06/18/19 11:01 94 Nasal Cannula 3.00 06/18/19 09:00 Nasal Cannula 3.00 06/18/19 08:57 92 Nasal Cannula 3.00 06/18/19 08:00 98.5 88 18 127/75 (92) 94 Nasal Cannula 3.00 I & O 06/19/19 07:00 Intake Total 2410 ml Output Total 4500 ml Balance -2090 ml Height & Weight Height: 5'7.00" Weight: 201lbs. 8.0oz. 91.656891mg; 28.5 BMI Method:Stated General Appearance: No Apparent Distress, Chronically ill Neck: No Thyromegaly Respiratory: Lungs Clear, No Accessory Muscle Use, No Respiratory Distress Cardiovascular: Regular Rate, Rhythm, No Murmur Capillary Refill: Less Than 3 Seconds Gastrointestinal: non tender, soft Extremity: Other (s/p BKA LLE) Neurologic/Psychiatric: Alert, Oriented x3 Skin: Other (multiple wounds/scabs of varying ages on arms and legs) Results Lab Laboratory Tests 06/18/19 05:05 06/19/19 04:50 Assessment/Plan Assessment/Plan Sepsis -Merrem -Cdiff toxin-- neg RLL pneumonia Bacteremia -Cultures reviewed UTI with ESBL Possible aspiration PNA -Aspiration precautions COPDAE -SVNS -Oxygen Anemia -Monitor Diarrhea -CDiff toxin- neg CAD CHF ROSE OSBORN DO Jun 19, 2019 07:12
[2019-06-19] MEDS: RT-ALBUTEROL/IPRATROPIUM 3 ML (DUONEB) VIAL INH SCH ×5 (07:31→22:22)
[2019-06-19] MEDS: ADVAIR HFA 115/21 MCG INHALER 8 GM IH SCH ×2 (07:34→19:22)
[2019-06-19 08:00] VITALS: BP 145/77
[2019-06-19] MEDS: GABAPENTIN 600 MG (NEURONTIN) TAB PO SCH ×2 (08:54→20:37)
[2019-06-19] MEDS: DULoxetine 30 MG (CYMBALTA) CAP PO SCH (08:54)
[2019-06-19] MEDS: LORATADINE (CLARITIN) 10 MG TAB PO SCH (08:54)
[2019-06-19] MEDS: TOLTERODINE LA 4 MG (DETROL) CAP PO SCH (08:55)
[2019-06-19] MEDS: amLODIPine 5 MG (NORVASC) TAB PO SCH (08:55)
[2019-06-19] MEDS: meTOprolol TARTRATE 25 MG (LOPRESSOR) TABLET PO SCH ×2 (08:55→20:37)
[2019-06-19] MEDS: FLUoxetine HCL 20 MG (PROzac) CAP PO SCH (08:55)
--- NOTE | 2019-06-19 11:02 | Progress Note - Hospitalist ---
Subjective HPI/CC On Admission Date Seen by Provider: Jun 19, 2019 Time Seen by Provider: 10:59 Pt was admitted for severe sepsis due t o RLL PNA. She is unable to provide me any history at this time due to obtundation. She reportedly presented to the ER with CC of fever, nausea, vomiting, and diarrhea. She was febrile here as well with temps up to 103. CT Chest showed a RLE and urine was consistent with a UTI. She was found to have an elevated lactic acid as well qualifying her for severe sepsis. She complained of pain throughout her stay in the ER and received fentanyl and morphine. On my arrival to the bedside she was altered and responded only to sternal rub necessitating Narcan with significant improvement in mentation. Subjective/Events-last exam Pt reports doing well. Requests catheter removal but otherwise no complaints. Objective Exam Vital Signs Vital Signs Date Time Temp Pulse Resp B/P (MAP) Pulse Ox O2 Delivery O2 Flow Rate FiO2 06/19/19 10:46 94 Nasal Cannula 3.00 06/19/19 04:00 97.6 88 20 118/76 (90) 06/17/19 01:25 36 Capillary Refill : Less Than 3 Seconds General Appearance: No Apparent Distress, Chronically ill Neck: No Thyromegaly Respiratory: Lungs Clear, No Accessory Muscle Use, No Respiratory Distress Cardiovascular: Regular Rate, Rhythm, No Murmur Gastrointestinal: Non Tender, Soft Extremity: Other (s/p BKA LLE) Neurologic/Psychiatric: Alert, Oriented x3 Skin: Other (multiple wounds/scabs of varying ages on arms and legs) Results/Procedures Lab Laboratory Tests 06/19/19 04:50 Patient resulted labs reviewed. Assessment/Plan Assessment and Plan Assess & Plan/Chief Complaint severe sepsis Diagnosis/Problems Diagnosis/Problems (1) Sepsis Status: Resolved Assessment & Plan: Leukocytosis improving Afebrile now over 24 hours PNA and UTI c diff negative Urine growing ESBL e coli in urine Merrem ordered yesterday Blood shows clostridium perfringens and aerococcus viridans continue flagyl Qualifiers: Sepsis type: sepsis due to unspecified organism Qualified Codes: A41.9 - Sepsis, unspecified organism Resolution Date/Time: 11/30/18 @ 13:24 (2) Urinary tract infection Status: Resolved Assessment & Plan: antibiotics as above culture as above DC grewal Qualifiers: Urinary tract infection type: acute cystitis Hematuria presence: without hematuria Qualified Codes: N30.00 - Acute cystitis without hematuria Resolution Date/Time: 12/01/18 @ 11:19 (3) Pneumonia Status: Acute Assessment & Plan: Concern for aspiration with vomiting Merrem/flagyl as above Pulm consulted On 3lpm up from baseline of 2lpm Qualifiers: Pneumonia type: due to unspecified organism Laterality: right Lung location: lower lobe of lung Qualified Codes: J18.1 - Lobar pneumonia, unspecified organism (4) Anemia Status: Chronic Assessment & Plan: Anemia of chronic disease trend transfuse to keep Hgb 8 given CAD and critical illness Qualifiers: Anemia type: unspecified type Qualified Codes: D64.9 - Anemia, unspecified (5) Altered mental status Status: Resolved Assessment & Plan: resolved but appears to have baseline confusion Qualifiers: Altered mental status type: somnolence Qualified Codes: R40.0 - Somnolence Resolution Date/Time: 06/15/19 @ 10:00 (6) Diarrhea Status: Resolved Assessment & Plan: negative c diff cont probiotic Qualifiers: Diarrhea type: unspecified type Qualified Codes: R19.7 - Diarrhea, unspecified Resolution Date/Time: 12/01/18 @ 11:19 (7) CAD (coronary artery disease) Status: Chronic Assessment & Plan: last cath 02/2018 showed patent stent Continue home meds Qualifiers: Coronary Disease-Associated Artery/Lesion type: unspecified vessel or lesion type [place] vs. 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 insulin use: without half-way use Diabetes mellitus complication status: with skin complications Diabetes mellitus complication detail: with other skin complication Qualified Codes: E11.628 - Type 2 diabetes mellitus with other skin complications (9) HTN (hypertension) Status: Chronic Assessment & Plan: Elevated while at bedside but will hold given sepsis Resume home meds Qualifiers: Hypertension type: essential hypertension Qualified Codes: I10 - Essential (primary) hypertension (10) COPD (chronic obstructive pulmonary disease) Status: Chronic Assessment & Plan: Chronic oxygen requirement Dr Merino consulted, appreciate recs Qualifiers: COPD type: unspecified COPD Qualified Codes: J44.9 - Chronic obstructive pulmonary disease, unspecified (11) Counseling regarding end of life decision making Assessment & Plan: Continued discussions of CODE STATUS today and patient elects to be DO NOT RESUSCITATE Offered assistance with advanced directive that she does not have had more but she declined stating "I do not want my sister to get anything" Informed her that it advanced directive has nothing to do with financial matters and she still declined (12) Discharge planning issues Assessment & Plan: on admission patient had dog feces caked to feet, and multiple wounds of varying ages on arms and legs which she reports are secondary to the dogs She reports to physical therapy that she has to crawl up her steps social work has been consulted and she will likely need hotlined at discharge Clinical Quality Measures DVT/VTE Risk/Contraindication: Risk Factor Score Per Nursin RFS Level Per Nursing on Admit: 4+=Very High KOFFI CASEY MD Jun 19, 2019 11:02
[2019-06-19 12:00] VITALS: BP 105/70
[2019-06-19] MEDS: MONTELUKAST 10 MG (SINGULAIR) TAB PO SCH (16:23)
[2019-06-19] MEDS: LACTATED RINGERS 1,000 ML IV SCH (16:24)
[2019-06-19 16:59] VITALS: BP 131/83
[2019-06-19 20:08] VITALS: BP 130/83
[2019-06-19] MEDS: traZODone 100 MG (DESYREL) TAB PO SCH (20:37)
[2019-06-19] MEDS: MIRTAZAPINE 15 MG (REMERON) TAB PO SCH (20:37)
[2019-06-19] MEDS: ATORVASTATIN 40 MG (LIPITOR) TABLET PO SCH (20:37)
[2019-06-20] VITALS (7 sets, daily range): BP systolic 113–147; BP diastolic 62–81
[2019-06-20] MEDS: oxyCODONE/APAP 5/325MG (PERCOCET 5) TABLET PO PRN ×5 (01:32→20:42)
[2019-06-20] MEDS: RT-ALBUTEROL/IPRATROPIUM 3 ML (DUONEB) VIAL INH SCH ×5 (03:09→19:35)
[2019-06-20] MEDS: MEROPENEM 500 MG in WATER (STERILE) FOR INJECTION 10 ML IV SCH ×4 (03:28→20:39)
[2019-06-20] MEDS: LEVOTHYROXINE 50 MCG (LEVOTHROID) TAB PO SCH (05:53)
[2019-06-20] MEDS: metroNIDAZOLE 500MG/100ML IVPB 100 ML IV SCH ×2 (05:53→17:22)
[2019-06-20] MEDS: LACTOBACILLUS ACIDOPHILUS (PROBIOTIC) CAPSULE PO SCH ×3 (05:54→17:22)
[2019-06-20] MEDS: ADVAIR HFA 115/21 MCG INHALER 8 GM IH SCH ×2 (06:54→19:37)
--- NOTE | 2019-06-20 07:36 | Pulmonary Progress Note ---
Subjective Time Seen by a Provider: 07:36 Subjective/Events-last exam No complications noted. Sepsis Event Evaluation Height, Weight, BMI Height: 5'7.00" Weight: 201lbs. 8.0oz. 91.204303vd; 28.5 BMI Method:Stated Exam Exam Vital Signs Date Time Temp Pulse Resp B/P (MAP) Pulse Ox O2 Delivery O2 Flow Rate FiO2 06/20/19 06:52 95 Nasal Cannula 5.00 06/20/19 03:24 98.9 85 20 120/81 (94) 93 Nasal Cannula 5.00 06/20/19 00:30 98.9 91 18 139/78 (98) 96 Nasal Cannula 5.00 06/19/19 20:08 98.8 86 20 130/83 (99) 90 Nasal Cannula 5.00 06/19/19 19:30 90 Nasal Cannula 4.00 06/19/19 19:23 90 Nasal Cannula 4.50 06/19/19 16:59 97.5 102 20 131/83 (99) 91 High Flow N/C 4.50 06/19/19 15:56 95 Nasal Cannula 3.00 06/19/19 12:33 97.6 06/19/19 12:00 98.6 80 18 105/70 (82) 90 High Flow N/C 3.00 06/19/19 10:46 94 Nasal Cannula 3.00 06/19/19 09:00 95 Nasal Cannula 3.00 06/19/19 08:00 98.6 88 20 145/77 (99) 92 High Flow N/C 3.00 I & O 06/20/19 07:00 Intake Total 2140 ml Output Total 600 ml Balance 1540 ml Height & Weight Height: 5'7.00" Weight: 201lbs. 8.0oz. 91.448096nx; 28.5 BMI Method:Stated General Appearance: No Apparent Distress, Chronically ill Neck: No Thyromegaly Respiratory: Lungs Clear, No Accessory Muscle Use, No Respiratory Distress Cardiovascular: Regular Rate, Rhythm, No Murmur Capillary Refill: Less Than 3 Seconds Gastrointestinal: non tender, soft Extremity: Other (s/p BKA LLE) Neurologic/Psychiatric: Alert, Oriented x3 Skin: Other (multiple wounds/scabs of varying ages on arms and legs) Results Lab Laboratory Tests 06/19/19 04:50 Assessment/Plan Assessment/Plan Sepsis UTI with ESBL -Merrem -Cdiff toxin-- neg RLL pneumonia Bacteremia -Cultures reviewed Possible aspiration PNA -Aspiration precautions COPDAE -SVNS --Pt has home oxygen however she is currently requiring 5liters of oxygen -Will give 60mg of Lasix -Check CXR and BNP -Oxygen Anemia -Monitor Diarrhea -CDiff toxin- neg CAD CHF ROSE OSBORN DO Jun 20, 2019 07:36
[2019-06-20] MEDS: GABAPENTIN 600 MG (NEURONTIN) TAB PO SCH ×2 (09:57→20:40)
[2019-06-20] MEDS: DULoxetine 30 MG (CYMBALTA) CAP PO SCH (09:57)
[2019-06-20] MEDS: FLUoxetine HCL 20 MG (PROzac) CAP PO SCH (09:57)
[2019-06-20] MEDS: amLODIPine 5 MG (NORVASC) TAB PO SCH (09:57)
[2019-06-20] MEDS: meTOprolol TARTRATE 25 MG (LOPRESSOR) TABLET PO SCH ×2 (09:58→20:40)
[2019-06-20] MEDS: LORATADINE (CLARITIN) 10 MG TAB PO SCH (09:58)
[2019-06-20] MEDS: TOLTERODINE LA 4 MG (DETROL) CAP PO SCH (09:59)
--- NOTE | 2019-06-20 11:55 | Occupational Ther Daily Note ---
OT Current Status-Daily Note Subjective Pt alert, sitting in recliner. Pt agrees to therapy. No c/o pain at this time. Mental Status/Objective Patient Orientation: Person, Place, Time, Situation Therapy Code Descriptions/Definitions Functional [place] Measure: 0=Not Assessed/NA 4=Minimal Assistance 1=Total Assistance 5=Supervision or Setup 2=Maximal Assistance 6=Modified [place] 3=Moderate Assistance 7=Complete [place] Attachments: IV, Oxygen (5L) Other Treatment Medium resistance theraband completed, skilled instruction required for correct technique and instruction. Physical cues required for proper arm placement during exercises. 3 exercises 2 sets 10 reps of each. Pt tolerated well. After therapy, pt sitting in recliner with call light/phone in reach. All needs met in room. OT Short Term Goals Short Term Goals Transfers (B,C,W/C) (FIM): 4 1=Demonstrate adherence to instructed precautions during ADL tasks. 2=Patient will verbalize/demonstrate understanding of assistive devices/modifications for ADL. 3=Patient will improve strength/tolerance for activity to enable patient to perform ADL's. 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 2=Patient will verbalize/demonstrate understanding of assistive devices/modifications for ADL. 3=Patient will improve strength/tolerance for activity to enable patient to perform ADL's. OT Education/Plan Problem List/Assessment Pt to benefit from skilled OT intervention for ADL training, transfers, strengthening, and safety education to increase level of independence and allow safe discharge plan. Discharge Recommendations Plan/Recommendations: Continue POC Treatment Plan/Plan of Care Patient would benefit from OT for education, treatment and training to promote independence in ADL's, mobility, safety and/or upper extremity function for ADL's. Plan of Care: ADL Retraining, Functional Mobility, UE Funct Exercise/Act Treatment Duration: Jul 01, 2019 Frequency: 5 times per week Estimated Hrs Per Day: .25 hour per day Rehab Potential: Fair Time/GCodes Start Time: 11:20 Stop Time: 11:30 Total Time Billed (hr/min): 10 Billed Treatment Time 1visit-EX 1 (10 min) RONALDO REYNOLDS Jun 20, 2019 11:55
--- NOTE | 2019-06-20 14:39 | Physical Therapy Daily Note ---
PT Daily Note-Current Subjective Patient in recliner pre tx, agrees to PT, has 9/10 pain in back. Patient would like to get to the bedside commode for a BM. Patient does not want to perform exercises but is willing to ambulate just a bit to get to the bedside commode. Appearance Patient in recliner post tx with nurse call, phone, tray, all needs met. Mental Status Patient Orientation: Person, Place, Situation Attachments: Oxygen, IV Transfers Therapy Code Descriptions/Definitions Functional [place] Measure: 0=Not Assessed/NA 4=Minimal Assistance 1=Total Assistance 5=Supervision or Setup 2=Maximal Assistance 6=Modified [place] 3=Moderate Assistance 7=Complete [place] Therapy Quality Codes: 6 Independent with activity with or without an assistive device 5 Patient requires set up or clean up by helper. Patient completes activity by themselves 4 Supervision or touching assist (CGA). [place] provide cues , steadying assist 3 The helper provides less than half the effort to complete the activity 2 The helper provides more than half the effort to complete the activity 1 Dependent. The helper does all the effort to complete an activity 7 Patient refused to complete or attempt activity 9 The patient did not perform the activity before the current illness or injury 88 Not attempted due to Medical conditions or safety concerns Sit to/from Stand: 4 Bed to/from Chair: 4 Weight Bearing Right Lower Extremity: Right Non Weight Bearing Gait Training Gait (FIM): 1 Distance: 4' Gait Level of Assist: 4 Gait Persons Needed: 1 Gait Assistive Device: FWW Patient scoots, twists on her left foot to ambulate, she can only perform a couple of actual hops. Needs min assist to maintain balance. Patient gets to bedside commode, is able to get brief down with min assist, has BM, has assist wiping and get brief back up by nurse aide, and ambulates back to recliner. Treatments ambulation, transfers, toileting Assessment Current Status: Fair Progress Patient has not ambulated until now. Needs min assist to maintain balance. PT Short Term Goals Short Term Goals Time Frame: Jun 24, 2019 Transfers (B,C,W/C) (FIM): 4 Gait (FIM): 1 Gait Distance Comment: 10' Gait Level of Assist: 4 Gait Assistive Device: FWW PT Plan Problem List Problem List: Activity Tolerance, Functional Strength, Safety, Balance, Gait, Transfer, Bed Mobility, ROM Treatment/Plan Treatment Plan: Continue Plan of Care Treatment Plan: Bed Mobility, Education, Functional Activity John, Functional Strength, Gait, Safety, Therapeutic Exercise, Transfers Treatment Duration: Jun 24, 2019 Frequency: 6 times per week Estimated Hrs Per Day: .25 hour per day Patient and/or Family Agrees t: Yes Safety Risks/Education Patient Education: Gait Training, Transfer Techniques, Correct Positioning, Safety Issues Teaching Recipient: Patient Teaching Methods: Demonstration, Discussion Response to Teaching: Reinforcement Needed Time/GCodes Time In: 1405 Time Out: 1425 Total Billed Treatment Time: 20 Total Billed Treatment 1 visit FA 20' MARISA SANDS PT Jun 20, 2019 14:39
--- NOTE | 2019-06-20 14:47 | Progress Note ---
Subjective Subjective/Events-last exam Afebrile, no acute events, hoping to go home. Review of Systems Date Seen by Provider: Jun 20, 2019 Time Seen by Provider: 11:15 Objective Exam Last Set of Vital Signs Vital Signs Date Time Temp Pulse Resp B/P (MAP) Pulse Ox O2 Delivery O2 Flow Rate FiO2 06/20/19 14:32 74 92 06/20/19 14:29 Nasal Cannula 5.00 06/20/19 12:00 98.2 20 113/62 (79) 06/17/19 01:25 36 Capillary Refill : Less Than 3 Seconds I&O Intake and Output 06/20/19 00:00 Intake Total 1550 ml Output Total 2200 ml Balance -650 ml Intake Oral 850 ml Tube Feeding 700 ml Output Urine Total 2200 ml # Voids 3 # Bowel Movements 3 General: Alert, No Acute Distress Lungs: Clear to Auscultation, Normal Air Movement Heart: Regular Rate, No Murmurs Neuro: Normal Speech Psych/Mental Status: Mood NL Results/Procedures Lab Laboratory Tests 06/19/19 16:17: Glucometer 100 06/19/19 21:05: Glucometer 120H 06/20/19 05:52: Glucometer 103 06/20/19 11:01: Glucometer 115H Microbiology 06/14/19 Blood Culture - Final, Complete No growth 06/15/19 C. difficile GDH Antigen & Toxins - Final, Complete 06/14/19 MRSA Screen - Final, Complete MRSA not isolated 06/14/19 Urine Culture - Final, Complete Escherichia coli Pseudomonas aeruginosa Assessment/Plan Assessment/Plan Assessment & Plan (1) Sepsis Leukocytosis improving Afebrile PNA and UTI c diff negative Urine growing ESBL e coli in urine 06/20 Merrem day 4 today, anticipate 7 day course Blood shows clostridium perfringens and aerococcus viridans 06/20 continue flagyl day 7, will be complete tomorrow (2) Urinary tract infection antibiotics as above culture as above VISHAL grewal (3) Pneumonia Concern for aspiration with vomiting Merrem/flagyl as above Pulm consulted On 5 lpm up from baseline of 2lpm (4) Anemia Anemia of chronic disease trend transfuse to keep Hgb 8 given CAD and critical illness (5) Altered mental status resolved but appears to have baseline confusion (6) Diarrhea negative c diff cont probiotic (7) CAD (coronary artery disease) last cath 02/2018 showed patent stent Continue home meds (8) Diabetes mellitus SSI (9) HTN (hypertension) Resume home meds (10) COPD (chronic obstructive pulmonary disease) Chronic oxygen requirement Dr Merino consulted, appreciate recs (11) Counseling regarding end of life decision making Continued discussions of CODE STATUS were done per Dr. Velasquez and patient elected to be DO NOT RESUSCITATE (12) Discharge planning issues Assessment & Plan: on admission patient had dog feces caked to feet, and multiple wounds of varying ages on arms and legs which she reports are secondary to the dogs She reported to physical therapy that she has to crawl up her steps social work has been consulted and she will likely need hotlined at discharge Clinical Quality Measures DVT/VTE Risk/Contraindication: Risk Factor Score Per Nursin RFS Level Per Nursing on Admit: 4+=Very High QUE LEON MD Jun 20, 2019 14:47
[2019-06-20] MEDS: LACTATED RINGERS 1,000 ML IV SCH (15:26)
[2019-06-20] MEDS ORDERED: FUROSEMIDE 40 MG/4 ML INJ (LASIX) IVP ONE (15:45)
[2019-06-20] MEDS ORDERED: KCL 20 MEQ TAB (K-DUR) PO ONE ×3 (15:45→16:24)
[2019-06-20] MEDS ORDERED: FUROSEMIDE 40 MG/4 ML INJ (LASIX) ONE (16:23)
[2019-06-20] MEDS: BACLOFEN 10 MG (LIORESAL) TAB PO PRN (16:35)
[2019-06-20] MEDS: MONTELUKAST 10 MG (SINGULAIR) TAB PO SCH (17:22)
--- NOTE | 2019-06-20 18:36 | Diagnostic Imaging Report ---
EXAMINATION: Portable erect AP chest at 03:55 p.m. INDICATION: Shortness of breath. FINDINGS: This exam is less than optimal as the patient is severely rotated. Allowing for this technical factor, the heart size is stable when compared to the prior exam of 06/16/2019. The previous study did note right lower lobe atelectasis/infiltrate. On this exam, the density in the right lung base does seem somewhat greater. New bands of atelectasis/infiltrate have also developed in the left lung base. The upper lungs remain relatively clear. The mediastinum is not widened. The osseous structures are intact. IMPRESSION: The appearance of the chest has worsened since the prior exam as there is greater involvement of both lower lobes by atelectasis/infiltrate. A follow-up study will be recommended for continued evaluation. Dictated by: Dictated on workstation # [id number]
[2019-06-20] MEDS: traZODone 100 MG (DESYREL) TAB PO SCH (20:39)
[2019-06-20] MEDS: MIRTAZAPINE 15 MG (REMERON) TAB PO SCH (20:40)
[2019-06-20] MEDS: ATORVASTATIN 40 MG (LIPITOR) TABLET PO SCH (20:40)
[2019-06-21] VITALS (9 sets, daily range): BP systolic 112–148; BP diastolic 56–82
[2019-06-21] MEDS: MEROPENEM 500 MG in WATER (STERILE) FOR INJECTION 10 ML IV SCH ×4 (03:10→21:01)
[2019-06-21] MEDS: oxyCODONE/APAP 5/325MG (PERCOCET 5) TABLET PO PRN ×5 (04:05→21:01)
[2019-06-21] MEDS: LACTOBACILLUS ACIDOPHILUS (PROBIOTIC) CAPSULE PO SCH ×3 (06:21→18:05)
[2019-06-21] MEDS: metroNIDAZOLE 500MG/100ML IVPB 100 ML IV SCH (06:21)
[2019-06-21] MEDS: LEVOTHYROXINE 50 MCG (LEVOTHROID) TAB PO SCH (06:21)
[2019-06-21] MEDS: RT-ALBUTEROL/IPRATROPIUM 3 ML (DUONEB) VIAL INH SCH ×4 (06:50→19:13)
[2019-06-21] MEDS: ADVAIR HFA 115/21 MCG INHALER 8 GM IH SCH (06:52)
[2019-06-21 06:53] LABS: HEMOGLOBIN 7.5 G/DL (11.5-16.0); MEAN PLATELET VOLUME 11.4 FL (7.4-10.4); RED CELL DISTRIBUTION WIDTH 20.8 % (10.0-14.5); WHITE BLOOD COUNT 10.3 10^3/uL (4.3-11.0)
[2019-06-21 07:15] LABS: ALANINE AMINOTRANSFERASE 9 U/L (0-55); ALBUMIN 2.4 GM/DL (3.2-4.5); ALKALINE PHOSPHATASE 92 U/L (40-136); BILIRUBIN,TOTAL 0.2 MG/DL (0.1-1.0); BUN/CREATININE RATIO 13; CALCIUM 8.7 MG/DL (8.5-10.1); CARBON DIOXIDE 30 MMOL/L (21-32); CHLORIDE 101 MMOL/L (98-107); CREATININE SERUM 0.72 MG/DL (0.60-1.30); GFR ESTIMATED > 60; GLUCOSE 90 MG/DL (70-105); POTASSIUM 4.3 MMOL/L (3.6-5.0); SODIUM 139 MMOL/L (135-145); TOTAL PROTEIN 5.6 GM/DL (6.4-8.2)
--- NOTE | 2019-06-21 07:36 | NUR ---
DR OSBORN GAVE ORDERS TO TURN OXYGEN DOWN TO 2L AND TO RECHECK OXYGEN IN TEN MINUTES, AND TO KEEP OXYGEN 90-92%. PT ON 5LNC 93-95% PER VS. 0746 PT FOUND TO BE 85-87% ON 2L. OXYGEN INCREASED TO 3L NC AND WAS 90%
--- NOTE | 2019-06-21 08:08 | Pulmonary Progress Note ---
Subjective Time Seen by a Provider: 08:03 Subjective/Events-last exam Pt wants to go home. Sepsis Event Evaluation Height, Weight, BMI Height: 5'7.00" Weight: 201lbs. 8.0oz. 91.360023iy; 28.5 BMI Method:Stated Exam Exam Vital Signs Date Time Temp Pulse Resp B/P (MAP) Pulse Ox O2 Delivery O2 Flow Rate FiO2 06/21/19 06:50 92 Nasal Cannula 5.00 06/21/19 04:26 98.8 69 18 132/76 (94) 93 Nasal Cannula 5.00 06/21/19 00:41 96.7 74 20 125/69 (87) 94 Nasal Cannula 5.00 06/20/19 21:00 90 Nasal Cannula 4.00 06/20/19 20:37 97.0 85 22 132/68 (89) 93 Nasal Cannula 5.00 06/20/19 19:35 93 Nasal Cannula 5.00 06/20/19 15:48 97.8 78 22 124/72 (89) 95 Nasal Cannula 5.00 06/20/19 14:32 74 92 06/20/19 14:29 92 Nasal Cannula 5.00 06/20/19 12:00 98.2 74 20 113/62 (79) 94 Nasal Cannula 5.00 06/20/19 10:23 Nasal Cannula 5.00 06/20/19 09:00 90 Nasal Cannula 4.00 I & O 06/21/19 07:00 Intake Total 1985 ml Balance 1985 ml Height & Weight Height: 5'7.00" Weight: 201lbs. 8.0oz. 91.972812kc; 28.5 BMI Method:Stated General Appearance: No Apparent Distress, Chronically ill Neck: No Thyromegaly Respiratory: Lungs Clear, No Accessory Muscle Use, No Respiratory Distress Cardiovascular: Regular Rate, Rhythm, No Murmur Capillary Refill: Less Than 3 Seconds Gastrointestinal: non tender, soft Extremity: Other (s/p BKA LLE) Neurologic/Psychiatric: Alert, Oriented x3 Skin: Other (multiple wounds/scabs of varying ages on arms and legs) Results Lab Laboratory Tests 06/21/19 06:05 Assessment/Plan Assessment/Plan Sepsis UTI with ESBL -Merrem -Cdiff toxin-- neg RLL pneumonia -Yesterday's CXR appears worse. PT is still requiring 5 liters of oxygen. Will attempt to decrease this -Repeat CXR this AM Bacteremia -Cultures reviewed Possible aspiration PNA -Aspiration precautions COPDAE -SVNS --Pt has home oxygen however she is currently requiring 5liters of oxygen -S/p Lasix yesterday 60mg x1 -CXR and BNP -Oxygen - titrate down if possible Anemia -Monitor Diarrhea -CDiff toxin- neg CAD CHF ROSE OSBORN DO Jun 21, 2019 08:08
[2019-06-21] MEDS: LORATADINE (CLARITIN) 10 MG TAB PO SCH (08:25)
[2019-06-21] MEDS: GABAPENTIN 600 MG (NEURONTIN) TAB PO SCH ×2 (08:25→21:00)
[2019-06-21] MEDS: amLODIPine 5 MG (NORVASC) TAB PO SCH (08:25)
[2019-06-21] MEDS: DULoxetine 30 MG (CYMBALTA) CAP PO SCH (08:25)
[2019-06-21] MEDS: meTOprolol TARTRATE 25 MG (LOPRESSOR) TABLET PO SCH ×3 (08:25→23:33)
[2019-06-21] MEDS: FLUoxetine HCL 20 MG (PROzac) CAP PO SCH (08:26)
[2019-06-21] MEDS: TOLTERODINE LA 4 MG (DETROL) CAP PO SCH (08:26)
--- NOTE | 2019-06-21 08:54 | Diagnostic Imaging Report ---
Indication: Dyspnea. Upright portable AP view of the chest is obtained. Comparison is made to study of one day earlier. There is air trapping, bilaterally. There is continued basilar atelectasis and/or pneumonitis without adverse change. There is no evidence of new infiltrate. Impression: Bilateral air trapping indicating emphysema with continued basilar atelectasis and/or pneumonitis without adverse change. Dictated by: Dictated on workstation # [id number]
--- NOTE | 2019-06-21 10:17 | Physical Therapy Daily Note ---
PT Daily Note-Current Subjective Patient in recliner pre tx, agrees to exercises in chair but refuses to stand or try t ambulate. Patient has unrated back pain. Appearance Patient in recliner post tx with nurse call, phone, tray, all needs met, legs elevated. Mental Status Patient Orientation: Person, Place Attachments: Oxygen, IV Transfers Therapy Code Descriptions/Definitions Functional [place] Measure: 0=Not Assessed/NA 4=Minimal Assistance 1=Total Assistance 5=Supervision or Setup 2=Maximal Assistance 6=Modified [place] 3=Moderate Assistance 7=Complete [place] Therapy Quality Codes: 6 Independent with activity with or without an assistive device 5 Patient requires set up or clean up by helper. Patient completes activity by themselves 4 Supervision or touching assist (CGA). [place] provide cues , steadying assist 3 The helper provides less than half the effort to complete the activity 2 The helper provides more than half the effort to complete the activity 1 Dependent. The helper does all the effort to complete an activity 7 Patient refused to complete or attempt activity 9 The patient did not perform the activity before the current illness or injury 88 Not attempted due to Medical conditions or safety concerns Weight Bearing Right Lower Extremity: Right Non Weight Bearing Exercises Supine Ex: Ankle pumps, Quad Set, Glut sets, Straight leg raise, Hip abd/add Supine Reps: 15 (done in recliner with legs elevated) Seated Therapy Exercises: Long arc quads, Hip flexion Seated Reps: 15 Treatments LE exercise Assessment Current Status: Poor Progress No change in mobility, patient refused to stand or ambulate. PT Short Term Goals Short Term Goals Time Frame: Jun 24, 2019 Transfers (B,C,W/C) (FIM): 4 Gait (FIM): 1 Gait Distance Comment: 10' Gait Level of Assist: 4 Gait Assistive Device: FWW PT Plan Problem List Problem List: Activity Tolerance, Functional Strength, Safety, Balance, Gait, Transfer, Bed Mobility, ROM Treatment/Plan Treatment Plan: Continue Plan of Care Treatment Plan: Bed Mobility, Education, Functional Activity John, Functional Strength, Gait, Safety, Therapeutic Exercise, Transfers Treatment Duration: Jun 24, 2019 Frequency: 6 times per week Estimated Hrs Per Day: .25 hour per day Patient and/or Family Agrees t: Yes Safety Risks/Education Patient Education: Correct Positioning, Safety Issues Teaching Recipient: Patient Teaching Methods: Demonstration, Discussion Response to Teaching: Reinforcement Needed Time/GCodes Time In: 1000 Time Out: 1010 Total Billed Treatment Time: 10 Total Billed Treatment 1 visit EX MARISA JAMES PT Jun 21, 2019 10:17
--- NOTE | 2019-06-21 11:08 | NUR ---
PT FOUND ON O2 @ 3 LPM. SPO2 85%. PT HAD BEEN WEARING O2 @ 5 LPM WITH SPO2 92%. INCREASED O2 BACK TO 5 LPM. RT NOT NOTIFIED OF OXYGEN DECREASE. NURSE @ BEDSIDE WHEN OXYGEN WAS INCREASED BACK TO 5 LPM.
--- NOTE | 2019-06-21 11:56 | Progress Note ---
Subjective Subjective/Events-last exam Afebrile, continues to require 5 lpm supplemental O2 and CXR showed worsening yesterday evening, however she is still hoping to go home. Review of Systems Date Seen by Provider: Jun 21, 2019 Time Seen by Provider: 10:03 Objective Exam Last Set of Vital Signs Vital Signs Date Time Temp Pulse Resp B/P (MAP) Pulse Ox O2 Delivery O2 Flow Rate FiO2 06/21/19 11:08 85 Nasal Cannula 3.00 06/21/19 08:00 98.8 95 20 148/82 (104) 06/17/19 01:25 36 Capillary Refill : Less Than 3 Seconds I&O Intake and Output 06/21/19 00:00 Intake Total 2700 ml Balance 2700 ml Intake Oral 2460 ml IV Total 240 ml # Voids 10 # Bowel Movements 3 General: Alert, No Acute Distress Lungs: Clear to Auscultation, Normal Air Movement Abdomen: Normal Bowel Sounds, Soft, No Tenderness Neuro: Normal Speech Psych/Mental Status: Mood NL Results/Procedures Lab Laboratory Tests 06/20/19 16:04: B-Type Natriuretic Peptide 28.8 06/20/19 16:27: Glucometer 111H 06/20/19 20:35: Glucometer 110 06/21/19 05:28: Glucometer 108 06/21/19 06:05: White Blood Count 10.3, Red Blood Count 3.77L, Hemoglobin 7.5L, Hematocrit 28L, Mean Corpuscular Volume 75L, Mean Corpuscular Hemoglobin 20L, Mean Corpuscular Hemoglobin Concent 27L, Red Cell Distribution Width 20.8H, Platelet Count 345, Mean Platelet Volume 11.4H, Sodium Level 139, Potassium Level 4.3, Chloride Level 101, Carbon Dioxide Level 30, Anion Gap 8, Blood Urea Nitrogen 9, Creatini ne 0.72, Estimat Glomerular Filtration Rate > 60, BUN/Creatinine Ratio 13, Glucose Level 90, Calcium Level 8.7, Corrected Calcium 10.0, Total Bilirubin 0.2, Aspartate Amino Transf (AST/SGOT) 13, Alanine Aminotransferase (ALT/SGPT) 9, Alkaline Phosphatase 92, Total Protein 5.6L, Albumin 2.4L Microbiology 06/14/19 Blood Culture - Final, Complete No growth 06/15/19 C. difficile GDH Antigen & Toxins - Final, Complete 06/14/19 MRSA Screen - Final, Complete MRSA not isolated 06/14/19 Urine Culture - Final, Complete Escherichia coli Pseudomonas aeruginosa Assessment/Plan Assessment/Plan Assessment & Plan (1) Sepsis Leukocytosis improving Afebrile PNA and UTI c diff negative Urine growing ESBL e coli in urine 06/21 Merrem day 5 today, anticipate 7 day course Blood shows clostridium perfringens and aerococcus viridans 06/21 flagyl complete (2) Urinary tract infection antibiotics as above culture as above DC grewal (3) Pneumonia Concern for aspiration with vomiting Merrem/flagyl as above Pulm consulted On 5 lpm up from baseline of 2lpm 06/21 given lasix last night without improvement, possible bronchoscopy tomorrow per Dr. Merino (4) Anemia Anemia of chronic disease trend transfuse to keep Hgb 8 given CAD and critical illness 06/21 Hgb 7.5, will transfuse (5) Altered mental status resolved but appears to have baseline confusion (6) Diarrhea negative c diff cont probiotic (7) CAD (coronary artery disease) last cath 02/2018 showed patent stent Continue home meds (8) Diabetes mellitus SSI (9) HTN (hypertension) Resume home meds (10) COPD (chronic obstructive pulmonary disease) Chronic oxygen requirement Dr Merino consulted, appreciate recs (11) Counseling regarding end of life decision making Continued discussions of CODE STATUS were done per Dr. Velasquez and patient elected to be DO NOT RESUSCITATE (12) Discharge planning issues Assessment & Plan: on admission patient had dog feces caked to feet, and multiple wounds of varying ages on arms and legs which she reports are secondary to the dogs She reported to physical therapy that she has to crawl up her steps social work has been consulted and she will likely need hotlined at discharge Clinical Quality Measures DVT/VTE Risk/Contraindication: Risk Factor Score Per Nursin RFS Level Per Nursing on Admit: 4+=Very High QUE LEON MD Jun 21, 2019 11:55
[2019-06-21] MEDS: LACTATED RINGERS 1,000 ML IV SCH (12:37)
[2019-06-21] MEDS: NS IV 500 ML 500 ML IV SCH (13:13)
--- NOTE | 2019-06-21 13:20 | NUR ---
PT TEMP PRE TRANSFUSION WAS 101. DR LEON NOTIFIED AND GAVE ORDERS TO HOLD TRANSFUSION FOR NOW, OBTAIN REPEAT BLOOD CULTURES AND LACTIC ACID.
--- NOTE | 2019-06-21 13:20 | NUR ---
THIS NURSE ACCIDENTLY CLICKED BEGIN TRANSFUSION. TRANSFUSION WAS NOT STARTED. 1325 BLOOD BANK WAS NOTIFIED AND BLOOD WAS RETURNED PER DR CHAPA
--- NOTE | 2019-06-21 13:23 | ST Dysphagia Evaluation ---
Speech Evaluation-General Medical Diagnosis sepsis Onset Date: Jun 14, 2019 Therapy Diagnosis Therapy Diagnosis: Oropharyngeal Dysphagia Precautions Precautions: Aspiration Precautions/Isolations: Contact Isolation, Fall Prevention, Standard Precautions Referral Referring Physician: Dr. Vila Reason for Referral: Evaluation/Treatment Medical History Pertinent Medical History: Arthritis, CAD, DM, GERD, HTN See above Current History Sepsis, pneumonia Reviewed History: Yes Social History Home: Single Level Current Living Status: Other Family (sister) Speech PLF/Current-Dysphagia Prior Level of Function The patient lives at home with other family. She states she ate whatever she wanted at home. Subjective The patient was pleasant and cooperative with the Bedside Dysphagia Evaluation Cognitive Status Patient Orientation: Person, Place, Time, Situation Patient is oriented to all concepts Oral Motor Skills Dentition: Edentalous Ability to Follow Directions: Good Oral Expression Ability: No Impairment Face Facial Symmetry: Symmetrical Oral-Facial Assessment Oral-Facial Dentition: Normal Labial Seal Description: Weak Smile: Normal Puff Cheeks: Normal Lingual Protrusion: Normal Lingual ROM: Normal Volitional Dry Swallow: Yes Voluntary Cough: Yes Can Clear Throat Volitionally: Yes Dysphagia Evaluation Consistencies Presented: Thin Liquid, Mechanical Soft, Honey Thick Liquid, Pureed Dietary Recommendations: Mechanical Soft Liquid Recommendations: Thin Swallowing Precautions: Alternate Liquids/Solids, Liquids from Cup, Liquids from Wide Cup, Small Bites and Sips, Sitting Upright 90 Degrees, Sitting 90 Degrees 30 Post Intake Dysphagia Evaluation Summary The patient is a 63 year old female who was admitted to the hospital with severe sepsis and pneumonia. She was referred for a bedside swallow evaluation due to aspirated vomit at some time. The patient was evaluated at bedside with thin liquids presented by 1/2 tsp. x2, small sips via straw and small sips via cup without difficulty. The patient was given 1/2 tsp of puree and mechanical soft without difficulty. Patient did not want to try the regular due to self reported difficulty with breads. The patient was placed on a Dysphagia II diet level with thin liquids. This information was provided to her nurse. Barriers to Learning The patient's current medical status. Speech Short Term Goals Short Term Goals Short Term Goals 1) The patient will tolerate least restrictive diet level without s/s of aspiration at 90% or greater. 2) The patient will utilize compensatory strategies as trained for safe oral intake at 90% or greater with minimal cues. Speech Production Recovery Operator Goals Shelter Goals The patient will maintain adequate nutrition and hydration via safe effective swallow function. Speech-Plan Patient/Family Goals Patient/Family Goals: The patient plans to return home with family upon discharge. Treatment Plan Speech Therapy Treatment Plan: Continue Plan of Care The patient will receive skilled ST services for dysphagia Treatment Duration: Jun 24, 2019 Frequency: 3 times per week Estimated Hrs Per Day: .25 hour per day Rehab Potential: Fair Barriers to Learning: Patient's medical status Pt/Family Agrees to Plan: Yes Safety Risks/Education Teaching Recipient: Patient Teaching Methods: Discussion Response to Teaching: Verbalize Understanding Education Topics Provided: Safety of oral intake and diet level Time Speech Therapy Time In: 10:40 Speech Therapy Time Out: 10:55 Total Billed Time: 15 Billed Treatment Time 1, LEWIS Kaufman Jun 21, 2019 13:23
--- NOTE | 2019-06-21 14:04 | Occupational Ther Daily Note ---
OT Current Status-Daily Note Subjective Pt dozing in recliner, woke to name. Pt agrees to therapy. No c/o pain. Mental Status/Objective Patient Orientation: Person Therapy Code Descriptions/Definitions Functional [place] Measure: 0=Not Assessed/NA 4=Minimal Assistance 1=Total Assistance 5=Supervision or Setup 2=Maximal Assistance 6=Modified [place] 3=Moderate Assistance 7=Complete [place] Attachments: IV, Oxygen ADL-Treatment Pt declines to complete bathing or grooming. Did demonstrate ability to open containers/packages and use regular utensils to eat with. Other Treatment Pt was able to remember 1 out of 4 exercises. Skilled instruction needed for correct technique and remembering UE theraband exercises given prior treatment. Pt completed 1 set 10 reps of 4 exercises with medium resistance theraband for UE's. After therapy, pt sitting in recliner with call light/phone in reach. Lab in to take blood. All needs met in room. OT Short Term Goals Short Term Goals Transfers (B,C,W/C) (FIM): 4 1=Demonstrate adherence to instructed precautions during ADL tasks. 2=Patient will verbalize/demonstrate understanding of assistive devices/modifications for ADL. 3=Patient will improve strength/tolerance for activity to enable patient to perform ADL's. OT Beef Pluck Trimmer Goals Beef Pluck Trimmer Goals Time Frame: Jul 01, 2019 Grooming(FIM): 6 Bathing(FIM): 4 Upper Body Dressing(FIM): 5 Lower Body Dressing(FIM): 5 Toileting(FIM): 5 Toilet/Commode Transfer(FIM): 5 Additional Goals: 1-Demonstrate ADL Tasks, 2-Verbalize Understanding, 3- ImproveStrength/John 1=Demonstrate adherence to instructed precautions during ADL tasks. 2=Patient will verbalize/demonstrate understanding of assistive devices/modifi cations for ADL. 3=Patient will improve strength/tolerance for activity to enable patient to perform ADL's. OT Education/Plan Problem List/Assessment Assessment: Decreased Activ Tolerance, Decreased Safety Aware, Decreased UE Strength, Impaired Cognition, Impaired Coordination, Impaired Funct Balance, Impaired Self-Care Skills Pt to benefit from skilled OT intervention for ADL training, transfers, strengthening, and safety education to increase level of independence and allow safe discharge plan. Discharge Recommendations Plan/Recommendations: Continue POC Treatment Plan/Plan of Care Patient would benefit from OT for education, treatment and training to promote independence in ADL's, mobility, safety and/or upper extremity function for ADL's. Plan of Care: ADL Retraining, Functional Mobility, UE Funct Exercise/Act Treatment Duration: Jul 01, 2019 Frequency: 5 times per week Estimated Hrs Per Day: .25 hour per day Rehab Potential: Fair Time/GCodes Start Time: 13:51 Stop Time: 14:00 Total Time Billed (hr/min): 9 Billed Treatment Time 1 visit-EX 1 (9 min) RONALDO REYNOLDS Jun 21, 2019 14:04
[2019-06-21] MEDS: ACETAMINOPHEN 500 MG TAB (TYLENOL) PO PRN (14:07)
--- NOTE | 2019-06-21 14:27 | NUR ---
DR LEON NOTIFIED OF LACTIC ACID 2.08. NO NEW ORDERS RECEIVED.
[2019-06-21] MEDS ORDERED: IOHEXOL 350 MG/ML 100 ML (OMNIPAQUE 350) VIAL IV ONE (14:30)
[2019-06-21] MEDS ORDERED: NS 100 ML (IVPB) BAG IV ONE (14:30)
[2019-06-21] MEDS ORDERED: HOLD METFORMIN - RECEIVED CONTRAST 20 ML VIAL IV SCH (14:30)
--- NOTE | 2019-06-21 15:28 | Diagnostic Imaging Report ---
PROCEDURE: CT chest with contrast only. TECHNIQUE: Multiple contiguous axial images were obtained through the chest after administration of intravenous contrast. Auto Exposure Controls were utilized during the CT exam to meet ALARA standards for radiation dose reduction. INDICATION: Chest pain. Findings: Comparisons by 01/19/2018. Lungs are emphysematous. There are no suspicious pulmonary nodules. There is bibasilar atelectasis, less likely pneumonia. No edema. No pleural effusion. Heart size is normal. There are mild coronary artery calcifications. No axillary, supraclavicular or mediastinal lymphadenopathy. Limited views of the upper abdomen reveal an aortic stent graft, incompletely evaluated. There are no suspicious osseous lesions. Impression: 1. Basilar atelectasis, less likely pneumonia. Dictated by: Dictated on workstation # [id number]
[2019-06-21] MEDS: MONTELUKAST 10 MG (SINGULAIR) TAB PO SCH (16:48)
[2019-06-21] MEDS: ATORVASTATIN 40 MG (LIPITOR) TABLET PO SCH (21:00)
[2019-06-21] MEDS: traZODone 100 MG (DESYREL) TAB PO SCH (21:01)
[2019-06-21] MEDS: MIRTAZAPINE 15 MG (REMERON) TAB PO SCH (21:01)
[2019-06-22] VITALS (7 sets, daily range): BP systolic 104–146; BP diastolic 57–83
[2019-06-22] MEDS: oxyCODONE/APAP 5/325MG (PERCOCET 5) TABLET PO PRN ×5 (01:22→18:55)
[2019-06-22] MEDS: MEROPENEM 500 MG in WATER (STERILE) FOR INJECTION 10 ML IV SCH ×4 (03:06→20:43)
[2019-06-22 05:34] LABS: HEMOGLOBIN 9.3 G/DL (11.5-16.0); RED CELL DISTRIBUTION WIDTH 20.1 % (10.0-14.5); WHITE BLOOD COUNT 10.4 10^3/uL (4.3-11.0)
[2019-06-22 05:52] LABS: BUN/CREATININE RATIO 12; CALCIUM 8.8 MG/DL (8.5-10.1); CARBON DIOXIDE 29 MMOL/L (21-32); CHLORIDE 102 MMOL/L (98-107); CREATININE SERUM 0.73 MG/DL (0.60-1.30); GFR ESTIMATED > 60; GLUCOSE 87 MG/DL (70-105); POTASSIUM 4.3 MMOL/L (3.6-5.0); SODIUM 141 MMOL/L (135-145)
[2019-06-22] MEDS: LACTOBACILLUS ACIDOPHILUS (PROBIOTIC) CAPSULE PO SCH ×3 (06:22→16:50)
[2019-06-22] MEDS: LEVOTHYROXINE 50 MCG (LEVOTHROID) TAB PO SCH (06:22)
[2019-06-22] MEDS: RT-ALBUTEROL/IPRATROPIUM 3 ML (DUONEB) VIAL INH SCH ×4 (07:14→20:19)
[2019-06-22] MEDS: ADVAIR HFA 115/21 MCG INHALER 8 GM IH SCH (07:15)
--- NOTE | 2019-06-22 08:31 | Pulmonary Progress Note ---
Subjective Time Seen by a Provider: 08:30 Subjective/Events-last exam Pt is still requiring 5l/min oxygen. Sepsis Event Evaluation Height, Weight, BMI Height: 5'." Weight: 201lbs. 0.0oz. 91.944886en; 28.5 BMI Method:Stated Focused Exam Lactate Level 06/21/19 14:05: Lactic Acid Level 2.09*H 06/21/19 16:24: Lactic Acid Level 1.13 Exam Exam Vital Signs Date Time Temp Pulse Resp B/P (MAP) Pulse Ox O2 Delivery O2 Flow Rate FiO2 06/22/19 07:15 90 Nasal Cannula 5.00 06/22/19 04:00 99.1 92 18 120/75 (90) 93 High Flow N/C 5.00 06/22/19 01:08 99.8 86 20 146/83 97 High Flow N/C 5.00 06/22/19 00:00 99.1 84 18 104/68 (80) 94 High Flow N/C 5.00 06/21/19 22:55 98.9 85 20 119/56 94 High Flow N/C 5.00 06/21/19 22:40 99.3 84 24 112/58 90 High Flow N/C 5.00 06/21/19 21:30 High Flow N/C 5.00 06/21/19 19:58 99.0 84 18 116/56 (76) 91 High Flow N/C 5.00 06/21/19 19:13 90 Nasal Cannula 5.00 06/21/19 16:20 99.5 89 18 117/58 (77) 93 High Flow N/C 5.00 06/21/19 14:37 100.2 06/21/19 14:30 100.2 06/21/19 14:27 90 Nasal Cannula 5.00 06/21/19 13:20 101.0 06/21/19 12:00 98.4 72 18 123/77 (92) 95 Nasal Cannula 5.00 06/21/19 11:08 85 Nasal Cannula 3.00 06/21/19 09:00 Nasal Cannula 5.00 I & O 06/22/19 07:00 Intake Total 2702 ml Balance 2702 ml Height & Weight Height: 5'7." Weight: 201lbs. 0.0oz. 91.735365ft; 28.5 BMI Method:Stated General Appearance: No Apparent Distress, Chronically ill Neck: No Thyromegaly Respiratory: Lungs Clear, No Accessory Muscle Use, No Respiratory Distress Cardiovascular: Regular Rate, Rhythm, No Murmur Capillary Refill: Less Than 3 Seconds Gastrointestinal: non tender, soft Extremity: Other (s/p BKA LLE) Neurologic/Psychiatric: Alert, Oriented x3 Skin: Other (multiple wounds/scabs of varying ages on arms and legs) Results Lab Laboratory Tests 06/21/19 06:05 06/22/19 05:16 Assessment/Plan Assessment/Plan Sepsis UTI with ESBL -Merrem -Cdiff toxin-- neg RLL pneumonia and atelectasis -Yesterday's CXR appears worse. PT is still requiring 5 liters of oxygen. Will attempt to decrease this -CT of chest reviewed and shows atelectasis/PNA -This will need to be repeated in 8wks after discharge to ensure complete resolution. -SVNs Bacteremia -Cultures reviewed Possible aspiration PNA -Aspiration precautions COPDAE -SVNS --Pt has home oxygen however she is currently requiring 5liters of oxygen -S/p Lasix yesterday 60mg x1 -CXR and BNP -Oxygen - titrate down if possible Anemia -Monitor Diarrhea -CDiff toxin- neg CAD CHF ROSE OSBORN DO Jun 22, 2019 08:31
[2019-06-22] MEDS: meTOprolol TARTRATE 25 MG (LOPRESSOR) TABLET PO SCH ×2 (09:35→20:43)
[2019-06-22] MEDS: amLODIPine 5 MG (NORVASC) TAB PO SCH (09:35)
[2019-06-22] MEDS: LORATADINE (CLARITIN) 10 MG TAB PO SCH (09:35)
[2019-06-22] MEDS: TOLTERODINE LA 4 MG (DETROL) CAP PO SCH (09:36)
[2019-06-22] MEDS: DULoxetine 30 MG (CYMBALTA) CAP PO SCH (09:36)
[2019-06-22] MEDS: GABAPENTIN 600 MG (NEURONTIN) TAB PO SCH ×2 (09:36→20:43)
[2019-06-22] MEDS: FLUoxetine HCL 20 MG (PROzac) CAP PO SCH (09:36)
--- NOTE | 2019-06-22 10:00 | Speech Therapy Daily Note ---
Speech Daily Progress Note Subjective Date Seen by Provider: Jun 22, 2019 Time Seen by Provider: 00:15 The patient was sitting in her chair resting when I entered her room. Objective The patient completed compensatory strategies as trained for safe oral intake at 80% with minimal verbal or visual cues. Assessment Assessment Current Status: Good Progress Treatment Plan Continue Plan of Care Speech Short Term Goals Short Term Goals Short Term Goals 1) The patient will tolerate least restrictive diet level without s/s of aspiration at 90% or greater. 2) The patient will utilize compensatory strategies as trained for safe oral intake at 90% or greater with minimal cues. Speech Jail Goals Jail Goals The patient will maintain adequate nutrition and hydration via safe effective swallow function. Speech-Plan Patient/Family Goals Patient/Family Goals: The patient plans on returning home upon hospital discharge. Treatment Plan Speech Therapy Treatment Plan: Continue Plan of Care The patient is making good progress as a result of skilled ST. Treatment Duration: Jun 24, 2019 Frequency: 3 times per week Estimated Hrs Per Day: .25 hour per day Rehab Potential: Fair Barriers to Learning: Patient's medical status. Pt/Family Agrees to Plan: Yes Safety Risks/Education Teaching Recipient: Patient Teaching Methods: Demonstration, Discussion Response to Teaching: Verbalize Understanding, Return Demonstration Education Topics Provided: Continued safety of oral intake. Time Speech Therapy Time In: 08:30 Speech Therapy Time Out: 08:45 Total Billed Time: 15 Billed Treatment Time 1KAREN BETHANIA ST Jun 22, 2019 10:00
[2019-06-22] MEDS: NS IV 500 ML 500 ML IV SCH (12:07)
[2019-06-22] MEDS: LACTATED RINGERS 1,000 ML IV SCH ×2 (12:08→16:51)
--- NOTE | 2019-06-22 14:19 | Occupational Ther Daily Note ---
OT Current Status-Daily Note Subjective Pt alert, sitting in recliner. Discussed home environment with pt. Pt declined to transfer or complete grooming/bathing with WILLARD. Pt stated that nrsg was going to bring a pain pill. Mental Status/Objective Patient Orientation: Person, Place, Time, Situation Therapy Code Descriptions/Definitions Functional [place] Measure: 0=Not Assessed/NA 4=Minimal Assistance 1=Total Assistance 5=Supervision or Setup 2=Maximal Assistance 6=Modified [place] 3=Moderate Assistance 7=Complete [place] Attachments: IV, Oxygen Other Treatment Pt declined grooming or bathing. Pt stated that she transferred only to BSC, bed and recliner. These items are placed a short distance apart due to pt does not have prosthesis available and her personal w/c is not with her. Pt states that she completes her theraband exercises in room throughout the day. Per pt, she has tub transfer bench to get into tub at home. After therapy, pt sitting in recliner with call light/phone in reach. All needs met in room. OT Short Term Goals Short Term Goals Transfers (B,C,W/C) (FIM): 4 1=Demonstrate adherence to instructed precautions during ADL tasks. 2=Patient will verbalize/demonstrate understanding of assistive devices/modifications for ADL. 3=Patient will improve strength/tolerance for activity to enable patient to perform ADL's. OT Laboratory Manager Goals Senior Care Goals Time Frame: Jul 01, 2019 Grooming(FIM): 6 Bathing(FIM): 4 Upper Body Dressing(FIM): 5 Lower Body Dressing(FIM): 5 Toileting(FIM): 5 Toilet/Commode Transfer(FIM): 5 Additional Goals: 1-Demonstrate ADL Tasks, 2-Verbalize Understanding, 3- ImproveStrength/John 1=Demonstrate adherence to instructed precautions during ADL tasks. 2=Patient will verbalize/demonstrate understanding of assistive devices/modifications for ADL. 3=Patient will improve strength/tolerance for activity to enable patient to perform ADL's. OT Education/Plan Problem List/Assessment Pt to benefit from skilled OT intervention for ADL training, transfers, strengthening, and safety education to increase level of independence and allow safe discharge plan. Discharge Recommendations Plan/Recommendations: Continue POC Treatment Plan/Plan of Care Patient would benefit from OT for education, treatment and training to promote independence in ADL's, mobility, safety and/or upper extremity function for ADL's. Plan of Care: ADL Retraining, Functional Mobility, UE Funct Exercise/Act Treatment Duration: Jul 01, 2019 Frequency: 5 times per week Estimated Hrs Per Day: .25 hour per day Rehab Potential: Fair Time/GCodes Start Time: 14:05 Stop Time: 14:14 Total Time Billed (hr/min): 9 Billed Treatment Time 1 visit-FA 1 (9 min) RONALDO REYNOLDS Jun 22, 2019 14:19
--- NOTE | 2019-06-22 14:47 | NUR ---
CM/SS. Reviewed patient progress and status as it relates to discharge planning, EMR reflects that she is not yet medically stable. Contacted by Rosalva Nguyen, Warehouse Trainer with , and she has been involved with patient monitoring in her home and community. Rosalva will be coming to see patient tomorrow afternoon around 1500 in response to DCF/APS report of concern from findings upon admission to hospital. Rosalva, with previous and current information, intends to discuss community SNF placement with patient. Assistant Professor Of Religion will assist and support as appropriate.
--- NOTE | 2019-06-22 15:01 | Physical Therapy Daily Note ---
PT Daily Note-Current Subjective Patient in recliner pre tx, agrees to ambulate to the commode to urinate, has unrated back pain. Patient has totally soaked her brief and pad that she has been sitting on. Nurse aide comes in to help dress patient and clean her and get new sheet and pad for the recliner. Patient refuses any other PT treatment. Appearance Patient in recliner post tx with nurse call, phone, tray, all needs met. Patient very anxious to go home. Nurse in room when PT left. Mental Status Patient Orientation: Person Attachments: Oxygen, IV Transfers Therapy Code Descriptions/Definitions Functional [place] Measure: 0=Not Assessed/NA 4=Minimal Assistance 1=Total Assistance 5=Supervision or Setup 2=Maximal Assistance 6=Modified [place] 3=Moderate Assistance 7=Complete [place] Therapy Quality Codes: 6 Independent with activity with or without an assistive device 5 Patient requires set up or clean up by helper. Patient completes activity by themselves 4 Supervision or touching assist (CGA). [place] provide cues , steadying assist 3 The helper provides less than half the effort to complete the activity 2 The helper provides more than half the effort to complete the activity 1 Dependent. The helper does all the effort to complete an activity 7 Patient refused to complete or attempt activity 9 The patient did not perform the activity before the current illness or injury 88 Not attempted due to Medical conditions or safety concerns Transfers (B, C, W/C) (FIM): 4 Sit to/from Stand: 4 CGA, no LOB today but some unsteadiness, cues for hand placement and positioning Weight Bearing Right Lower Extremity: Right Non Weight Bearing Gait Training Gait (FIM): 1 Distance: 10' Gait Level of Assist: 4 Gait Persons Needed: 1 Gait Assistive Device: FWW Patient ambulated 5' to the commode and 5' back. She needed CGA, was able to hop a few times but mostly twisted/scooted her foot along the floor to move. Treatments transfers, ambulation Assessment Current Status: Poor Progress no change in mobility PT Short Term Goals Short Term Goals Time Frame: Jun 24, 2019 Transfers (B,C,W/C) (FIM): 4 Gait (FIM): 1 Gait Distance Comment: 10' Gait Level of Assist: 4 Gait Assistive Device: FWW PT Plan Problem List Problem List: Activity Tolerance, Functional Strength, Safety, Balance, Gait, Transfer, Bed Mobility, ROM Treatment/Plan Treatment Plan: Continue Plan of Care Treatment Plan: Bed Mobility, Education, Functional Activity John, Functional Strength, Gait, Safety, Therapeutic Exercise, Transfers Treatment Duration: Jun 24, 2019 Frequency: 6 times per week Estimated Hrs Per Day: .25 hour per day Patient and/or Family Agrees t: Yes Safety Risks/Education Patient Education: Gait Training, Transfer Techniques, Correct Positioning, Safety Issues Teaching Recipient: Patient Teaching Methods: Demonstration, Discussion Response to Teaching: Reinforcement Needed Time/GCodes Time In: 1440 Time Out: 1456 Total Billed Treatment Time: 16 Total Billed Treatment 1 visit FA 16' MARISA SANDS PT Jun 22, 2019 15:01
[2019-06-22] MEDS: MONTELUKAST 10 MG (SINGULAIR) TAB PO SCH (16:50)
--- NOTE | 2019-06-22 19:59 | Progress Note ---
Subjective Subjective/Events-last exam Febrile to 101 yesterday afternoon. Denies concerns, wants to go home. Review of Systems Date Seen by Provider: Jun 22, 2019 Time Seen by Provider: 11:22 Focused Exam Lactate Level 06/21/19 14:05: Lactic Acid Level 2.09*H 06/21/19 16:24: Lactic Acid Level 1.13 Objective Exam Last Set of Vital Signs Vital Signs Date Time Temp Pulse Resp B/P (MAP) Pulse Ox O2 Delivery O2 Flow Rate FiO2 06/22/19 16:54 98.2 80 20 112/57 (75) 92 High Flow N/C 5.00 06/17/19 01:25 36 Capillary Refill : Less Than 3 Seconds I&O Intake and Output 06/22/19 00:00 Intake Total 2317 ml Balance 2317 ml Intake Oral 2217 ml IV Total 100 ml # Voids 5 # Bowel Movements 4 General: Alert, No Acute Distress Lungs: Clear to Auscultation, Normal Air Movement Heart: Regular Rate, No Murmurs Neuro: Normal Speech Psych/Mental Status: Mood NL Results/Procedures Lab Laboratory Tests 06/21/19 20:29: Glucometer 126H 06/22/19 05:16: White Blood Count 10.4, Red Blood Count 4.42, Hemoglobin 9.3#L, Hematocrit 33L, Mean Corpuscular Volume 75L, Mean Corpuscular Hemoglobin 21L, Mean Corpuscular Hemoglobin Concent 28L, Red Cell Distribution Width 20.1H, Platelet Count 427H, Mean Platelet Volume 11.0H, Sodium Level 141, Potassium Level 4.3, Chloride Level 102, Carbon Dioxide Level 29, Anion Gap 10, Blood Urea Nitrogen 9, Creatinine 0.73, Estimat Glomerular Filtration Rate > 60, BUN/Creatinine Ratio 12, Glucose Level 87, Calcium Level 8.8 06/22/19 05:55: Glucometer 97 06/22/19 10:57: Glucometer 124H 06/22/19 12:22: Lab Scanned Report Transfusion Reaction Form 06/22/19 16:43: Glucometer 122H Microbiology 06/21/19 Blood Culture - Preliminary, Resulted No growth 06/15/19 C. difficile GDH Antigen & Toxins - Final, Complete 06/14/19 MRSA Screen - Final, Complete MRSA not isolated 06/14/19 Urine Culture - Final, Complete Escherichia coli Pseudomonas aeruginosa Assessment/Plan Assessment/Plan Assessment & Plan (1) Sepsis Leukocytosis improving Afebrile PNA and UTI c diff negative Urine growing ESBL e coli in urine 06/22 Merrem day 6 today, anticipate 7 day course- febrile yesterday afternoon, repeat blood cultures drawn and negative so far Blood shows clostridium perfringens and aerococcus viridans 06/21 flagyl complete (2) Urinary tract infection antibiotics as above culture as above DC grewal (3) Pneumonia Concern for aspiration with vomiting Merrem/flagyl as above Pulm consulted On 5 lpm up from baseline of 2lpm 06/21 given lasix last night without improvement, possible bronchoscopy tomorrow per Dr. Merino 06/22 no change, but CT chest with only atelectasis (4) Anemia Anemia of chronic disease trend transfuse to keep Hgb 8 given CAD and critical illness 06/21 Hgb 7.5, will transfuse 06/22 improved after transfusion (5) Altered mental status resolved but appears to have baseline confusion (6) Diarrhea negative c diff cont probiotic (7) CAD (coronary artery disease) last cath 02/2018 showed patent stent Continue home meds (8) Diabetes mellitus SSI (9) HTN (hypertension) Resume home meds (10) COPD (chronic obstructive pulmonary disease) Chronic oxygen requirement Dr Merino consulted, appreciate recs (11) Counseling regarding end of life decision making Continued discussions of CODE STATUS were done per Dr. Velasquez and patient elected to be DO NOT RESUSCITATE (12) Discharge planning issues Assessment & Plan: on admission patient had dog feces caked to feet, and multiple wounds of varying ages on arms and legs which she reports are secondary to the dogs She reported to physical therapy that she has to crawl up her steps social work has been consulted and she will likely need hotlined at discharge Clinical Quality Measures DVT/VTE Risk/Contraindication: Risk Factor Score Per Nursin RFS Level Per Nursing on Admit: 4+=Very High QUE LEON MD Jun 22, 2019 19:59
[2019-06-22] MEDS: traZODone 100 MG (DESYREL) TAB PO SCH (20:43)
[2019-06-22] MEDS: ATORVASTATIN 40 MG (LIPITOR) TABLET PO SCH (20:43)
[2019-06-22] MEDS: MIRTAZAPINE 15 MG (REMERON) TAB PO SCH (20:43)
[2019-06-23] MEDS: oxyCODONE/APAP 5/325MG (PERCOCET 5) TABLET PO PRN ×5 (00:11→16:30)
[2019-06-23 00:20] VITALS: BP 113/69
[2019-06-23] MEDS: MEROPENEM 500 MG in WATER (STERILE) FOR INJECTION 10 ML IV SCH ×4 (03:00→19:02)
[2019-06-23 04:00] VITALS: BP 123/75
[2019-06-23 06:03] LABS: HEMOGLOBIN 9.3 G/DL (11.5-16.0); MEAN PLATELET VOLUME 11.2 FL (7.4-10.4); RED CELL DISTRIBUTION WIDTH 20.7 % (10.0-14.5); WHITE BLOOD COUNT 9.2 10^3/uL (4.3-11.0)
[2019-06-23] MEDS: LACTOBACILLUS ACIDOPHILUS (PROBIOTIC) CAPSULE PO SCH ×3 (06:22→17:11)
[2019-06-23] MEDS: LEVOTHYROXINE 50 MCG (LEVOTHROID) TAB PO SCH (06:22)
[2019-06-23 06:31] LABS: BUN/CREATININE RATIO 17; CALCIUM 9.1 MG/DL (8.5-10.1); CARBON DIOXIDE 30 MMOL/L (21-32); CHLORIDE 102 MMOL/L (98-107); CREATININE SERUM 0.72 MG/DL (0.60-1.30); GFR ESTIMATED > 60; GLUCOSE 81 MG/DL (70-105); POTASSIUM 4.6 MMOL/L (3.6-5.0); SODIUM 142 MMOL/L (135-145)
[2019-06-23] MEDS: ADVAIR HFA 115/21 MCG INHALER 8 GM IH SCH (07:37)
[2019-06-23] MEDS: RT-ALBUTEROL/IPRATROPIUM 3 ML (DUONEB) VIAL INH SCH ×3 (07:37→15:39)
[2019-06-23 07:49] VITALS: BP 116/74
--- NOTE | 2019-06-23 08:02 | Pulmonary Progress Note ---
Subjective Time Seen by a Provider: 08:01 Subjective/Events-last exam Pt wants to go home Sepsis Event Evaluation Height, Weight, BMI Height: 5'7.00" Weight: 201lbs. 0.0oz. 91.444859ku; 28.5 BMI Method:Stated Focused Exam Lactate Level 06/21/19 14:05: Lactic Acid Level 2.09*H 06/21/19 16:24: Lactic Acid Level 1.13 Exam Exam Vital Signs Date Time Temp Pulse Resp B/P (MAP) Pulse Ox O2 Delivery O2 Flow Rate FiO2 06/23/19 04:00 98.5 78 19 123/75 (91) 94 High Flow N/C 5.00 06/23/19 00:20 98.4 72 20 113/69 (84) 93 High Flow N/C 5.00 06/22/19 20:50 High Flow N/C 5.00 06/22/19 20:35 100.1 78 18 128/62 (84) 91 High Flow N/C 5.00 06/22/19 20:20 91 Nasal Cannula 5.00 06/22/19 16:54 98.2 80 20 112/57 (75) 92 High Flow N/C 5.00 06/22/19 14:23 90 Nasal Cannula 5.00 06/22/19 12:00 99.0 74 20 112/64 (80) 92 High Flow N/C 5.00 06/22/19 11:52 91 Nasal Cannula 5.00 06/22/19 09:00 90 Nasal Cannula 5.00 I & O 06/23/19 07:00 Intake Total 1730 ml Balance 1730 ml Height & Weight Height: 5'7.00" Weight: 201lbs. 0.0oz. 91.175654fx; 28.5 BMI Method:Stated General Appearance: No Apparent Distress, Chronically ill Neck: No Thyromegaly Respiratory: Lungs Clear, No Accessory Muscle Use, No Respiratory Distress Cardiovascular: Regular Rate, Rhythm, No Murmur Capillary Refill: Less Than 3 Seconds Gastrointestinal: non tender, soft Extremity: Normal Capillary Refill, No Pedal Edema, Other (s/p BKA LLE) Neurologic/Psychiatric: Alert, Oriented x3 Skin: Other (multiple wounds/scabs of varying ages on arms and legs) Results Lab Laboratory Tests 06/22/19 05:16 06/23/19 04:55 Assessment/Plan Assessment/Plan Sepsis UTI with ESBL -Merrem -Cdiff toxin-- neg RLL pneumonia and atelectasis -Yesterday's CXR appears worse. PT is still requiring 5 liters of oxygen. Will attempt to decrease this -CT of chest reviewed and shows atelectasis/PNA -This will need to be repeated in 8wks after discharge to ensure complete resolution. -Pt is ok from pulmonary standpoint for discharge. I will see her 2 wks after discharge. -May need out pt Bronchoscopy if f/u CT still shows infiltrates. -SVNs Bacteremia -Cultures reviewed Possible aspiration PNA -Aspiration precautions COPDAE -SVNS --Pt has home oxygen however she is currently requiring 5liters of oxygen -CXR and BNP -Oxygen - titrate down if possible Anemia -Monitor Diarrhea -CDiff toxin- neg CAD CHF ROSE OSBORN DO Jun 23, 2019 08:02
[2019-06-23] MEDS: TOLTERODINE LA 4 MG (DETROL) CAP PO SCH (08:15)
--- NOTE | 2019-06-23 08:15 | NUR ---
O2 ON PER NC AT 5 LITERS, DR OSBORN HERE, INSTRUCTED NURSE TO TURN O2 DOWN TO 3 LITERS, RECHECK O2 SAT I 10 MINUTES, O2 SAT GOAL IS 90-92 PERCENT.
[2019-06-23] MEDS: GABAPENTIN 600 MG (NEURONTIN) TAB PO SCH (08:16)
[2019-06-23] MEDS: amLODIPine 5 MG (NORVASC) TAB PO SCH (08:16)
[2019-06-23] MEDS: LORATADINE (CLARITIN) 10 MG TAB PO SCH (08:16)
[2019-06-23] MEDS: FLUoxetine HCL 20 MG (PROzac) CAP PO SCH (08:16)
[2019-06-23] MEDS: meTOprolol TARTRATE 25 MG (LOPRESSOR) TABLET PO SCH (08:16)
[2019-06-23] MEDS: DULoxetine 30 MG (CYMBALTA) CAP PO SCH (08:17)
--- NOTE | 2019-06-23 08:25 | NUR ---
O2 SAT 92 PERCENT ON 3 LITERS
--- NOTE | 2019-06-23 09:29 | Speech Therapy Daily Note ---
Speech Daily Progress Note Subjective Date Seen by Provider: Jun 23, 2019 Time Seen by Provider: 00:15 The patient was eating breakfast when I entered her room. Objective The patient utilizes compensatory strategies for safe oral intake at 80% with minimal to moderate cues. Assessment Assessment Current Status: Good Progress Treatment Plan Continue Plan of Care Speech Short Term Goals Short Term Goals Short Term Goals 1) The patient will tolerate least restrictive diet level without s/s of aspiration at 90% or greater. 2) The patient will utilize compensatory strategies as trained for safe oral intake at 90% or greater with minimal cues. Speech Shelter Goals Matcher Operator Goals The patient will maintain adequate nutrition and hydration via safe effective swallow function. Speech-Plan Patient/Family Goals Patient/Family Goals: The patient plans on returning home with family support. Treatment Plan Speech Therapy Treatment Plan: Continue Plan of Care The patient asked if I was the one responsible for her modified diet. She does not like that she can order/eat anything on the menu. Treatment Duration: Jun 24, 2019 Frequency: 3 times per week Estimated Hrs Per Day: .25 hour per day Rehab Potential: Fair Barriers to Learning: Patient has some baseline confusion. Patient has difficulty retaining compensatory strategies. Pt/Family Agrees to Plan: Yes Safety Risks/Education Teaching Recipient: Patient Teaching Methods: Demonstration, Discussion Response to Teaching: Verbalize Understanding, Return Demonstration, Rein forcement Needed Education Topics Provided: Diet level and reasons for safety of oral intake. Time Speech Therapy Time In: 08:00 Speech Therapy Time Out: 08:15 Total Billed Time: 15 Billed Treatment Time 1, KAREN LEWIS Dawn Jun 23, 2019 09:29
--- NOTE | 2019-06-23 11:34 | Occupational Ther Daily Note ---
OT Current Status-Daily Note Subjective Pt alert, sitting in recliner. Pt states that physician says she is going home today, but if she starts feeling bad that she is coming back. Agrees to therapy. No c/o pain. Pt appears fatigued. Mental Status/Objective Patient Orientation: Person, Place, Time, Situation Therapy Code Descriptions/Definitions Functional [place] Measure: 0=Not Assessed/NA 4=Minimal Assistance 1=Total Assistance 5=Supervision or Setup 2=Maximal Assistance 6=Modified [place] 3=Moderate Assistance 7=Complete [place] Attachments: IV, Oxygen (3L) Other Treatment Pt has no concerns about going home and being able to maneuver around home and completed daily functional tasks. Skills of clinician needed for theraband UE exercises to complete with correct technique and to modify resistance when necessary. Pt unable to remember exercises given, verbal and gestural cues needed for correct technique. After therapy, pt sitting in recliner with call light/phone in reach. Nrsg present in room. All needs met in room. OT Short Term Goals Short Term Goals Transfers (B,C,W/C) (FIM): 4 1=Demonstrate adherence to instructed precautions during ADL tasks. 2=Patient will verbalize/demonstrate understanding of assistive devices/modifications for ADL. 3=Patient will improve strength/tolerance for activity to enable patient to perform ADL's. OT Longterm Goals Longterm Goals Time Frame: Jul 01, 2019 Grooming(FIM): 6 Bathing(FIM): 4 Upper Body Dressing(FIM): 5 Lower Body Dressing(FIM): 5 Toileting(FIM): 5 Toilet/Commode Transfer(FIM): 5 Additional Goals: 1-Demonstrate ADL Tasks, 2-Verbalize Understanding, 3- ImproveStrength/John 1=Demonstrate adherence to instructed precautions during ADL tasks. 2=Patient will verbalize/demonstrate understanding of assistive devices/modifications for ADL. 3=Patient will improve strength/tolerance for activity to enable patient to perform ADL's. OT Education/Plan Problem List/Assessment Assessment: Decreased Activ Tolerance, Decreased UE Strength Pt to benefit from skilled OT intervention for ADL training, transfers, strengthening, and safety education to increase level of independence and allow safe discharge plan. Discharge Recommendations Plan/Recommendations: Continue POC Treatment Plan/Plan of Care Patient would benefit from OT for education, treatment and training to promote independence in ADL's, mobility, safety and/or upper extremity function for ADL's. Plan of Care: ADL Retraining, Functional Mobility, UE Funct Exercise/Act Treatment Duration: Jul 01, 2019 Frequency: 5 times per week Estimated Hrs Per Day: .25 hour per day Rehab Potential: Fair Time/GCodes Start Time: 11:22 Stop Time: 11:30 Total Time Billed (hr/min): 8 Billed Treatment Time 1 visit-EX 1 (8 min) RONALDO REYNOLDS Jun 23, 2019 11:34
[2019-06-23 11:36] VITALS: BP 111/73
--- NOTE | 2019-06-23 12:30 | NUR ---
RT NOTIFIED OF ORDER FOR HOME O2 QUALIFIER
--- NOTE | 2019-06-23 15:07 | Physical Therapy Daily Note ---
PT Daily Note-Current Subjective Patient in recliner pre tx, agrees to exercises in chair but doesn't want to stand or ambulate, says she is leaving today. Patient voices no complaints of pain. Appearance Patient in recliner post tx with nurse call, phone, tray, all needs met. Mental Status Patient Orientation: Person, Place Attachments: Oxygen Transfers Therapy Code Descriptions/Definitions Functional [place] Measure: 0=Not Assessed/NA 4=Minimal Assistance 1=Total Assistance 5=Supervision or Setup 2=Maximal Assistance 6=Modified [place] 3=Moderate Assistance 7=Complete [place] Therapy Quality Codes: 6 Independent with activity with or without an assistive device 5 Patient requires set up or clean up by helper. Patient completes activity by themselves 4 Supervision or touching assist (CGA). [place] provide cues , steadying assist 3 The helper provides less than half the effort to complete the activity 2 The helper provides more than half the effort to complete the activity 1 Dependent. The helper does all the effort to complete an activity 7 Patient refused to complete or attempt activity 9 The patient did not perform the activity before the current illness or injury 88 Not attempted due to Medical conditions or safety concerns Weight Bearing Right Lower Extremity: Right Non Weight Bearing Exercises Supine Ex: Ankle pumps, Straight leg raise Supine Reps: 15 (exercises performed like supine but in recliner with legs elevated) Seated Therapy Exercises: Long arc quads, Hip flexion, Hip abd/add Seated Reps: 15 Treatments LE exercise Assessment Current Status: Poor Progress no change in mobility PT Short Term Goals Short Term Goals Time Frame: Jun 24, 2019 Transfers (B,C,W/C) (FIM): 4 Gait (FIM): 1 Gait Distance Comment: 10' Gait Level of Assist: 4 Gait Assistive Device: FWW PT Plan Problem List Problem List: Activity Tolerance, Functional Strength, Safety, Balance, Gait, Transfer, Bed Mobility, ROM Treatment/Plan Treatment Plan: Continue Plan of Care Treatment Plan: Bed Mobility, Education, Functional Activity John, Functional Strength, Gait, Safety, Therapeutic Exercise, Transfers Treatment Duration: Jun 24, 2019 Frequency: 6 times per week Estimated Hrs Per Day: .25 hour per day Patient and/or Family Agrees t: Yes Safety Risks/Education Patient Education: Correct Positioning, Safety Issues Teaching Recipient: Patient Teaching Methods: Demonstration, Discussion Response to Teaching: Reinforcement Needed Time/GCodes Time In: 1443 Time Out: 1453 Total Billed Treatment Time: 10 Total Billed Treatment 1 visit EX 10' MARISA SANDS PT Jun 23, 2019 15:07
--- NOTE | 2019-06-23 15:30 | NUR ---
SpO2 92% on 3 lpm nasal cannula. SpO2 86% on room air. O2 added at 3 lpm with SpO2 92%. There was no exercise during this study.
--- NOTE | 2019-06-23 15:45 | NUR ---
DR LEON NOTIFIED OF O2 HOME STUDY, INSTRUCTED THIS NURSE TO GIVE 2100 DOSE OF ANTIBIOTIC AT 1900 AND DISCHARGE HOME AFTER THAT
[2019-06-23 16:21] VITALS: BP 116/68
--- NOTE | 2019-06-23 16:34 | Discharge Instructions ---
Discharge [facility] Discharge Medications Continued Medications: Acetaminophen (Tylenol Extra Strength) 500 Mg Tablet 1000 MG PO Q6H PRN for PAIN-MODERATE, TAB Albuterol Sulfate (Proair Hfa) 1 Puff Puff 2 PUFF IH Q4H PRN for SHORTNESS OF BREATH, INHALER Albuterol Sulfate (Albuterol Sulfate) 2.5 Mg/3 Ml Vial.neb 2.5 MG NEB TID PRN for SHORTNESS OF BREATH, EA Amlodipine Besylate (Amlodipine Besylate) 5 Mg Tablet 5 MG PO DAILY, TAB Atorvastatin Calcium (Atorvastatin Calcium) 40 Mg Tablet 40 MG PO HS, TAB Baclofen (Baclofen) 10 Mg Tablet 10 MG PO TID PRN for MUSCLE SPASMS, TAB Brexpiprazole (Rexulti) 2 Mg Tablet 2 MG PO DAILY, TAB Budesonide/Formoterol Fumarate (Symbicort 80-4.5 Mcg Inhaler) 10.2 Gm Hfa.aer.ad 2 PUFF IH BID, INHALER Cetirizine HCl (Children's Cetirizine HCl) 10 Mg Tab.chew 10 MG PO DAILY, TAB Cyclobenzaprine HCl (Cyclobenzaprine HCl) 10 Mg Tablet 10 MG PO TID PRN for MUSCLE SPASMS, TAB Diphenoxylate HCl/Atropine (Diphenoxylate-Atrop 2.5-0.025) 1 Each Tablet 1 TAB PO QID PRN for DIARRHEA, TAB Duloxetine HCl (Duloxetine HCl) 60 Mg Capsule.dr 60 MG PO DAILY, CAP Fesoterodine Fumarate (Toviaz) 8 Mg Tab.er.24h 8 MG PO DAILY, TAB Fluoxetine HCl (Fluoxetine HCl) 40 Mg Capsule 40 MG PO DAILY, CAP Gabapentin (Gabapentin) 600 Mg Tablet 1200 MG PO BID, TAB TAKES 2 (600MG) TABLETS Levothyroxine Sodium (Levothyroxine Sodium) 50 Mcg Tablet 50 MCG PO DAILY, TAB Metformin HCl (Metformin HCl) 500 Mg Tablet 500 MG PO BID, TAB Metoprolol Tartrate (Metoprolol Tartrate) 25 Mg Tablet 25 MG PO BID, TAB Mirtazapine (Mirtazapine) 15 Mg Tablet 15 MG PO HS, TAB Montelukast Sodium (Montelukast Sodium) 10 Mg Tablet 10 MG PO 1700, TAB Naproxen (Naproxen) 500 Mg Tablet 500 MG PO BID PRN for PAIN-MILD, TAB Ondansetron (Ondansetron Odt) 4 Mg Tab.rapdis 4 MG PO Q4H PRN for NAUSEA/VOMITING-1ST LINE, TAB Pantoprazole Sodium (Pantoprazole Sodium) 40 Mg Tablet.dr 40 MG PO DAILY, TAB Tiotropium Desoto (Spiriva) 1 Inh Aerp 1 CAP IH DAILY, INHALER Tramadol HCl (Tramadol HCl) 50 Mg Tablet 50 MG PO BID PRN for PAIN-MODERATE, TAB Trazodone HCl (Trazodone HCl) 100 Mg Tablet 100 MG PO HS, TAB Discontinued Medications: Nitrofurantoin Monohyd/M-Cryst (Nitrofurantoin Trimble-Mcr 100 mg) 100 Mg Capsule 100 MG PO BID for 7 Days, CAP 7 DAY SUPPLY FILLED 06-13-19 Patient Instructions Goal/Follow Up Appt: Follow up with Dr. Fishman on 06/28 at 9:40 am. Follow up with Dr. Merino as directed. [facility]: Fever, inability to keep down medications Activity & Diet Discharge Diet: ADA Diet Activity as Tolerated: Yes Copy Copies To 1: KING FISHMAN MD, BETHANY N MD Jun 23, 2019 16:34
--- NOTE | 2019-06-23 17:00 | NUR ---
HOME OXYGEN ORDERS FAXED TO [facility]
[2019-06-23] MEDS: MONTELUKAST 10 MG (SINGULAIR) TAB PO SCH (17:12)
--- NOTE | 2019-06-23 18:10 | Discharge Summary ---
Diagnosis/Chief Complaint Date of Admission Jun 14, 2019 at 14:21 Date of Discharge Jun 23, 2019 Admission Diagnosis Admission Diagnosis (1) Sepsis (2) Altered mental status (3) Urinary tract infection (4) Pneumonia (5) Anemia (6) Diarrhea (7) CAD (coronary artery disease) (8) Diabetes mellitus (9) HTN (hypertension) (10) COPD (chronic obstructive pulmonary disease) (11) Counseling regarding end of life decision making Discharge Diagnosis (1) Sepsis Leukocytosis improving Afebrile PNA and UTI c diff negative Urine growing ESBL e coli in urine 06/23 Merrem day 7 Blood shows clostridium perfringens and aerococcus viridans 06/21 flagyl complete (2) Urinary tract infection antibiotics as above culture as above DC grewal (3) Pneumonia Concern for aspiration with vomiting Merrem/flagyl as above Pulm consulted On 5 lpm up from baseline of 2lpm 06/21 given lasix last night without improvement, possible bronchoscopy tomorrow per Dr. Merino 06/22 no change, but CT chest with only atelectasis- patient needing 3 lpm up from 2lpm at home, new orders sent and will follow up with Dr. Merino (4) Anemia Anemia of chronic disease trend transfuse to keep Hgb 8 given CAD and critical illness 06/21 Hgb 7.5, will transfuse 06/22 improved after transfusion (5) Altered mental status resolved but appears to have baseline confusion (6) Diarrhea negative c diff cont probiotic (7) CAD (coronary artery disease) last cath 02/2018 showed patent stent Continue home meds (8) Diabetes mellitus SSI (9) HTN (hypertension) Resume home meds (10) COPD (chronic obstructive pulmonary disease) Chronic oxygen requirement Dr Merino consulted, appreciate recs (11) Discharge planning issues Assessment & Plan: on admission patient had dog feces caked to feet, and multiple wounds of varying ages on arms and legs which she reports are secondary to the dogs She reported to physical therapy that she has to crawl up her steps social work has been consulted and she will likely need hotlined at discharge Chief Complaint/HPI Chief Complaint/HPI Pt was admitted for severe sepsis due t o RLL PNA. She is unable to provide me any history at this time due to obtundation. She reportedly presented to the ER with CC of fever, nausea, vomiting, and diarrhea. She was febrile here as well with temps up to 103. CT Chest showed a RLE and urine was consistent with a UTI. She was found to have an elevated lactic acid as well qualifying her for severe sepsis. She complained of pain throughout her stay in the ER and received fentanyl and morphine. On my arrival to the bedside she was altered and responded only to sternal rub necessitating Narcan with significant improvement in mentation. Discharge Summary-Simple/Stand Consultations Discharge Physical Examination Allergies: Coded Allergies: Penicillins (Verified Allergy, Mild, Hives, 07/23/18) Welzjfr-Ars-Vod Reductase Inhibitor (Verified Allergy, Unknown, TAKES ATORVASTATIN AT HOME, 06/15/19) amlodipine besylate (Verified Allergy, Unknown, TAKES AMLODIPINE AT HOME, 06/15/19) benazepril HCl (Verified Allergy, Unknown, 07/23/18) aspirin (Verified Adverse Reaction, Mild, Nausea, 07/23/18) codeine (Verified Adverse Reaction, Mild, Nausea, 07/23/18) tramadol (Verified Adverse Reaction, Mild, N/V, 07/23/18) Vitals & I&Os Vital Sign - Last 12Hours Date Time Temp Pulse Resp B/P (MAP) Pulse Ox O2 Delivery O2 Flow Rate FiO2 06/23/19 16:21 98.6 76 18 116/68 (84) 91 High Flow N/C 3.00 06/17/19 01:25 36 Intake and Output 06/23/19 00:00 Intake Total 1250 ml Balance 1250 ml General Appearance: Alert, No Acute Distress Respiratory: Other (ronchi) Cardiovascular: Regular Rate, No Murmurs Neuro: Normal Speech Hospital Course See final discharge diagnosis. Labs Laboratory Tests Test 06/22/19 05:16 06/22/19 05:55 06/22/19 10:57 06/22/19 12:22 Range/Units White Blood Count 10.4 4.3-11.0 10^3/uL Red Blood Count 4.42 4.35-5.85 10^6/uL Hemoglobin 9.3 #L 11.5-16.0 G/DL Hematocrit 33 L 35-52 % Mean Corpuscular Volume 75 L 80-99 FL Mean Corpuscular Hemoglobin 21 L 25-34 PG Mean Corpuscular Hemoglobin Concent 28 L 32-36 G/DL Red Cell Distribution Width 20.1 H 10.0-14.5 % Platelet Count 427 H 130-400 10^3/uL Mean Platelet Volume 11.0 H 7.4-10.4 FL Sodium Level 141 135-145 MMOL/L Potassium Level 4.3 3.6-5.0 MMOL/L Chloride Level 102 98-107 MMOL/L Carbon Dioxide Level 29 21-32 MMOL/L Anion Gap 10 5-14 MMOL/L Blood Urea Nitrogen 9 7-18 MG/DL Creatinine 0.73 0.60-1.30 MG/DL Estimat Glomerular Filtration Rate > 60 BUN/Creatinine Ratio 12 Glucose Level 87 70-105 MG/DL Calcium Level 8.8 8.5-10.1 MG/DL Glucometer 97 124 H 70-110 MG/DL Lab Scanned Report Transfusion Reaction Form [id number] Test 06/22/19 16:43 06/22/19 21:01 06/23/19 04:55 06/23/19 05:30 Range/Units Glucometer 122 H 121 H 138 H 70-110 MG/DL White Blood Count 9.2 4.3-11.0 10^3/uL Red Blood Count 4.32 L 4.35-5.85 10^6/uL Hemoglobin 9.3 L 11.5-16.0 G/DL Hematocrit 33 L 35-52 % Mean Corpuscular Volume 77 L 80-99 FL Mean Corpuscular Hemoglobin 22 L 25-34 PG Mean Corpuscular Hemoglobin Concent 28 L 32-36 G/DL Red Cell Distribution Width 20.7 H 10.0-14.5 % Platelet Count 446 H 130-400 10^3/uL Mean Platelet Volume 11.2 H 7.4-10.4 FL Sodium Level 142 135-145 MMOL/L Potassium Level 4.6 3.6-5.0 MMOL/L Chloride Level 102 98-107 MMOL/L Carbon Dioxide Level 30 21-32 MMOL/L Anion Gap 10 5-14 MMOL/L Blood Urea Nitrogen 12 7-18 MG/DL Creatinine 0.72 0.60-1.30 MG/DL Estimat Glomerular Filtration Rate > 60 BUN/Creatinine Ratio 17 Glucose Level 81 70-105 MG/DL Calcium Level 9.1 8.5-10.1 MG/DL Test 06/23/19 11:41 06/23/19 16:36 Range/Units Glucometer 114 H 112 H 70-110 MG/DL Discharge Instructions to patient/family Please see electronic discharge instructions given to patient. Discharge Medications Reviewed and agree with Discharge Medication list on patient's Discharge Instruction sheet Clinical Quality Measures DVT/VTE Risk/Contraindication: Risk Factor Score Per Nursin RFS Level Per Nursing on Admit: 4+=Very High Copy Copies To 1: KING FISHMAN MD, BETHANY N MD Jun 23, 2019 18:10
[2019-06-23 19:10] VITALS: BP 116/68
--- NOTE | 2019-06-23 19:15 | NUR ---
MAULIK ELIZALDE demonstrates understanding of discharge instructions and accurately returns instructions upon questioning. Copy of Post-Discharge Instructions and Medication Discharge Instructions given to PATIENT. MAULIK ELIZALDE isable to manage continuing needs after discharge. Patients belongings returned to PATIENT. Skin dry and intact; no breakdown noted. Patient discharged from [facility] on 06/23/19 at 1915. MAULIK ELIZALDE left floor via W/C, accompanied by FRIEND AND STAFF.
[2019-06-24] MEDS ORDERED: L.AC1CAP6 PO (13:58)
[2019-06-24] MEDS ORDERED: ACHD5005 PO (13:58)
[2019-06-24] MEDS ORDERED: ONDA4TAB11 SL (13:58)
== END 2019-06-23 19:15 | disposition home or self-care (01) | DRG 871 ==
LOC: ER 10:53 → EDUNIT# 10:53 → 4TH 14:21 → ICU 17:00 → 4TH 06-16 09:09
PROVIDERS: ADMIT Family Medicine; ATTEND Family Medicine
DX: A41.9 Sepsis, unspecified organism (principal); R65.20 Severe sepsis without septic shock; J18.1 Lobar pneumonia, unspecified organism; N30.00 Acute cystitis without hematuria; E87.2 Acidosis; J44.0 Chronic obstructive pulmonary disease with (acute) lower respiratory infection; J44.1 Chronic obstructive pulmonary disease with (acute) exacerbation; J98.11 Atelectasis; Z66 Do not resuscitate; B96.20 Unspecified Escherichia coli [E. coli] as the cause of diseases classified elsewhere; I25.10 Atherosclerotic heart disease of native coronary artery without angina pectoris; R06.03 Acute respiratory distress; E78.00 Pure hypercholesterolemia, unspecified; I11.0 Hypertensive heart disease with heart failure; G43.909 Migraine, unspecified, not intractable, without status migrainosus; K21.9 Gastro-esophageal reflux disease without esophagitis; M54.9 Dorsalgia, unspecified; F41.9 Anxiety disorder, unspecified; F32.9 Major depressive disorder, single episode, unspecified; D63.8 Anemia in other chronic diseases classified elsewhere; R19.7 Diarrhea, unspecified; E11.628 Type 2 diabetes mellitus with other skin complications; E86.0 Dehydration; I50.9 Heart failure, unspecified; Z88.0 Allergy status to penicillin; Z87.891 Personal history of nicotine dependence; Z95.5 Presence of coronary angioplasty implant and graft; Z99.81 Dependence on supplemental oxygen; Z89.512 Acquired absence of left leg below knee; Z16.12 Extended spectrum beta lactamase (ESBL) resistance
CPT/HCPCS: 36415; 71045; 71260; 74177; 80048; 80053; 80306; 81000; 82274; 82805; 82962; 83605; 83735; 83880; 84100; 85007; 85018; 85025; 85027; 85610; 85730; 86850; 86900; 86901; 86920; 87040; 87077; 87081; 87088; 87184; 87186; 87324; 87449; 94640; 94660; 94664; 94760; 96361; 96374; 96375; 96376

== ENCOUNTER 2019-06-24 09:38 | Emergency (ER) | payer MEDICAID ==
[~2019-06-24] VITALS: Ht 170.2 cm; Wt 82.6 kg
[~2019-06-24 09:38] MED LIST changes: +ALBU2.5V4 NEB; +BACL10TA PO; +BREX2TAB PO; +CETI-240 PO; +DULO60CA59 PO; +FESO8TAB PO; +GBPN600T PO; +MIRT15TA6 PO; +NITR100C10 PO; +ONDA4TAB11 PO; +PANT40TA3 PO; +TIOT18CA2 IH
[2019-06-24] MEDS ORDERED: LACTATED RINGERS 1,000 ML IV ONE (09:45)
[2019-06-24 10:26] LABS: BASOPHILS % (AUTO) 0 % (0-10); EOSINOPHILS # (AUTO) 0.2 10^3/uL (0.0-0.3); EOSINOPHILS % (AUTO) 2 % (0-10); HEMATOCRIT 34 % (35-52); HEMOGLOBIN 9.5 G/DL (11.5-16.0); LYMPHOCYTES # (AUTO) 1.1 X 10^3 (1.0-4.0); LYMPHOCYTES % (AUTO) 12 % (12-44); MEAN CORPUSCULAR HEMOGLOBIN 21 PG (25-34); MEAN CORPUSCULAR HGB CONC 28 G/DL (32-36); MEAN CORPUSCULAR VOLUME 76 FL (80-99); MEAN PLATELET VOLUME 10.3 FL (7.4-10.4); MONOCYTES # (AUTO) 0.8 X 10^3 (0.0-1.0); MONOCYTES % (AUTO) 9 % (0-12); NEUTROPHILS # (AUTO) 7.3 X 10^3 (1.8-7.8); NEUTROPHILS % (AUTO) 77 % (42-75); PLATELET COUNT 473 10^3/uL (130-400); RED CELL DISTRIBUTION WIDTH 20.7 % (10.0-14.5); WHITE BLOOD COUNT 9.4 10^3/uL (4.3-11.0)
[2019-06-24] MEDS ORDERED: RT-ALBUTEROL/IPRATROPIUM 3 ML (DUONEB) VIAL INH ONE (10:30)
[2019-06-24 10:48] LABS: ALANINE AMINOTRANSFERASE 8 U/L (0-55); ALBUMIN 2.6 GM/DL (3.2-4.5); ALKALINE PHOSPHATASE 97 U/L (40-136); BILIRUBIN,TOTAL 0.3 MG/DL (0.1-1.0); BUN/CREATININE RATIO 14; CARBON DIOXIDE 27 MMOL/L (21-32); CHLORIDE 102 MMOL/L (98-107); CREATININE SERUM 0.79 MG/DL (0.60-1.30); GFR ESTIMATED > 60; GLUCOSE 114 MG/DL (70-105); MAGNESIUM 1.9 MG/DL (1.8-2.4); POTASSIUM 4.5 MMOL/L (3.6-5.0); SODIUM 140 MMOL/L (135-145); TOTAL PROTEIN 6.5 GM/DL (6.4-8.2)
--- NOTE | 2019-06-24 11:15 | Diagnostic Imaging Report ---
INDICATION: Diarrhea and weakness. COMPARISON: 06/21/2019 FINDINGS: Single frontal radiographic view of the chest was obtained and demonstrates chronic appearing coarse interstitial lung markings within both lung bases. There may be some minimal patchy bibasilar alveolar opacities as well. There is apparent prominent nodular opacity of the right perihilar region. Correlation with recent CT chest, however shows this to represent pulmonary artery on end. There is no large effusion or pneumothorax. Cardiac silhouette and pulmonary vasculature within normal limits. Osseous structures show no gross acute abnormalities. IMPRESSION: 1. Stable bibasilar opacities, which may be on the basis of chronic interstitial changes, although some component of acute superimposed alveolar infiltrate cannot be entirely excluded. Dictated by: Dictated on workstation # [id number]
--- NOTE | 2019-06-24 11:21 | ED Abdominal Pain ---
General Chief Complaint: Abdominal/GI Problems Stated Complaint: DIARRHEA WEAKNESS Nursing Triage Note: PT TO ROOM 8 VIA WC. CO DIARRHEA AND WEAKNESS STARTING YESTERDAY. PT WEARS O2 AT 3LPM AT HOME AND DID NOT HAVE ANY O2 ON UPON ARRIVAL TO ED. PT STATES SHE WAS DISCHARGED FROM HOSPITAL YESTERDAY FOR SAME SYMPTOMS. Sepsis Screen: No Definite Risk Source of Information: Patient Exam Limitations: No Limitations History of Present Illness Date Seen by Provider: Jun 24, 2019 Time Seen by Provider: 09:45 Initial Comments This 54-year-old woman presents to the emergency room via private vehicle in wheelchair with complaints of generalized weakness, nausea, vomiting, diarrhea, and left-sided abdominal pain. She has an oxygen saturation of 85 percent on room air and did not travel with any oxygen although she uses oxygen continuously at 3 L at home. She was just dismissed from the hospital yesterday after treatment for infections. She states her primary concern today is that she was so weak she could not transfer herself without assistance to and from the bathroom in bed. 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 She also has had some lower back pain. She states her sister talk to Dr. Merino's office and it was recommended that she be evaluated in the ER. She reports a fever at home of 102 but she is afebrile at present. She has a persistent coarse cough. She also has wheezing and is due for a nebulizer treatment. Allergies and Home Medications Allergies Coded Allergies: Penicillins (Verified Allergy, Mild, Hives, 07/23/18) Xtjggyr-Nbx-Wyx Reductase Inhibitor (Verified Allergy, Unknown, TAKES AT ORVASTATIN AT HOME, 06/15/19) amlodipine besylate (Verified Allergy, Unknown, TAKES AMLODIPINE AT HOME, 06/15/19) benazepril HCl (Verified Allergy, Unknown, 07/23/18) aspirin (Verified Adverse Reaction, Mild, Nausea, 07/23/18) codeine (Verified Adverse Reaction, Mild, Nausea, 07/23/18) tramadol (Verified Adverse Reaction, Mild, N/V, 07/23/18) Home Medications Acetaminophen 500 Mg Tablet, 1,000 MG PO Q6H PRN for PAIN-MODERATE, (Reported) Albuterol Sulfate 1 Puff Puff, 2 PUFF IH Q4H PRN for SHORTNESS OF BREATH, (Reported) Albuterol Sulfate 2.5 Mg/3 Ml Vial.neb, 2.5 MG NEB TID PRN for SHORTNESS OF BREATH, (Reported) Amlodipine Besylate 5 Mg Tablet, 5 MG PO DAILY, (Reported) Atorvastatin Calcium 40 Mg Tablet, 40 MG PO HS, (Reported) Baclofen 10 Mg Tablet, 10 MG PO TID PRN for MUSCLE SPASMS, (Reported) Brexpiprazole 2 Mg Tablet, 2 MG PO DAILY, (Reported) Budesonide/Formoterol Fumarate 10.2 Gm Hfa.aer.ad, 2 PUFF IH BID, (Reported) Cetirizine HCl 10 Mg Tab.chew, 10 MG PO DAILY, (Reported) Cyclobenzaprine HCl 10 Mg Tablet, 10 MG PO TID PRN for MUSCLE SPASMS, (Reported) Diphenoxylate HCl/Atropine 1 Each Tablet, 1 TAB PO QID PRN for DIARRHEA, (Reported) Duloxetine HCl 60 Mg Capsule.dr, 60 MG PO DAILY, (Reported) Fesoterodine Fumarate 8 Mg Tab.er.24h, 8 MG PO DAILY, (Reported) Fluoxetine HCl 40 Mg Capsule, 40 MG PO DAILY, (Reported) Gabapentin 600 Mg Tablet, 1,200 MG PO BID, (Reported) TAKES 2 (600MG) TABLETS Hydrocodone Bit/Acetaminophen 1 Tab Tab, 1 EACH PO Q4-6HR PRN for PAIN-MODERATE Prescribed by: MARLA MAZARIEGOS on 06/24/19 1358 L.acidoph & Paracasei,B.lactis 1 Each Capsule, 1 EACH PO TIDPC Prescribed by: MARLA MAZARIEGOS on 06/24/19 1358 Levothyroxine Sodium 50 Mcg Tablet, 50 MCG PO DAILY, (Reported) Metformin HCl 500 Mg Tablet, 500 MG PO BID, (Reported) Metoprolol Tartrate 25 Mg Tablet, 25 MG PO BID, (Reported) Mirtazapine 15 Mg Tablet, 15 MG PO HS, (Reported) Montelukast Sodium 10 Mg Tablet, 10 MG PO 1700, (Reported) Naproxen 500 Mg Tablet, 500 MG PO BID PRN for PAIN-MILD, (Reported) Ondansetron 4 Mg Tab.rapdis, 4 MG PO Q4H PRN for NAUSEA/VOMITING-1ST LINE, (Reported) Ondansetron 4 Mg Tab.rapdis, 4 MG SL Q4H PRN for NAUSEA/VOMITING Prescribed by: MARLA MAZARIEGOS on 06/24/19 3968 Pantoprazole Sodium 40 Mg Tablet.dr, 40 MG PO DAILY, (Reported) Tiotropium [place] 1 Inh Aerp, 1 CAP IH DAILY, (Reported) Tramadol HCl 50 Mg Tablet, 50 MG PO BID PRN for PAIN-MODERATE, (Reported) Trazodone HCl 100 Mg Tablet, 100 MG PO HS, (Reported) Patient Home Medication List Home Medication List Reviewed: Yes Review of Systems Review of Systems Constitutional: see HPI EENTM: No Symptoms Reported Respiratory: See HPI Cardiovascular: No Symptoms Reported Gastrointestinal: See HPI Genitourinary: No Symptoms Reported Musculoskeletal: no symptoms reported Skin: no symptoms reported Psychiatric/Neurological: No Symptoms Reported Endocrine: No Symptoms Reported Hematologic/Lymphatic: No Symptoms Reported Past Xqkkwmn-[place]-Opmnsx Hx Patient Social History Alcohol Use: Denies Use Recreational Drug Use: No Smoking Status: Current Everyday Smoker Type Used: Cigarettes Former Smoker, Quit: Jun 27, 2018 Recent Foreign Travel: No Contact w/Someone Who Travel: No Recent Infectious Disease Expo: No Recent Hopitalizations: Yes Physical Abuse: No Sexual Abuse: No Mistreated: No Fear: No Immunizations Up To Date Tetanus Booster (TDap): Less than 5yrs Date of Pneumonia Vaccine: Jul 10, 2011 Date of Influenza Vaccine: Aug 20, 2018 Seasonal Allergies Seasonal Allergies: No Past Medical History Surgeries: Yes (CARPALTUNAL) Amputation, Orthopedic, Vascular Surgery (abdominal aortic stent extending into the iliac arteries) Respiratory: Yes ( O2 2L/NC @ NOC) Asthma, COPD, Emphysema Currently Using CPAP: No Currently Using BIPAP: No Cardiac: Yes (CARDIAC CATHS-STENT X 1; LBBB) Aneurysm (abdominal aortic aneurysm), Heart Attack, Hypertension Neurological: Yes Headaches /Migraines : No 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 Disorders: No 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 Disorders: Denies 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, 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 Sexually Transmitted Disease: No HIV/AIDS: No Genitourinary: Yes (BLADDER SUSPENSION) Bladder Infection Gastrointestinal: No Gastroesophageal Reflux Musculoskeletal: Yes Amputee Endocrine: Yes Diabetes, Non-Insulin dep HEENT: No Loss of Vision: Bilateral Hearing Impairment: Denies Cancer: No Psychosocial: Yes Anxiety, Depression Integumentary: No Blood Disorders: Yes (ANEMIA) Adverse Reaction/Blood Tranf: No (N/A) Family Medical History Arthritis Diabetes mellitus Hypertension No Pertinent Family Hx Patient reports she does not know Physical Exam Vital Signs Vital Signs - First Documented 06/24/19 09:59 Temp 99.2 Pulse 79 Resp 16 B/P (MAP) 107/64 (78) Pulse Ox 95 O2 Delivery Nasal Cannula O2 Flow Rate 3.00 Capillary Refill : Less Than 3 Seconds Height/Weight/BMI Height: 5'7.00" Weight: 182lbs. 0.0oz. 82.767466hu; 28.5 BMI Method:Stated General Appearance: WD/WN, no apparent distress HEENT: PERRL/EOMI, normal ENT inspection, pharynx normal Neck: normal inspection Respiratory: no respiratory distress, no accessory muscle use, rhonchi, wheezing Cardiovascular: regular rate, rhythm, no edema, no murmur Gastrointestinal: normal bowel sounds, soft, tenderness (left central abdomen) Extremities: no pedal edema, other (right lower extremity amputation) Neurologic/Psychiatric: finisher hot strip II-XII nml as tested, no motor/sensory deficits, alert, normal mood/affect, oriented x 3 Skin: normal color, warm/dry Progress/Results/Core Measures Results/Orders Lab Results Laboratory Tests Test 06/24/19 10:14 06/24/19 10:41 06/24/19 13:02 Range/Units White Blood Count 9.4 4.3-11.0 10^3/uL Red Blood Count 4.53 4.35-5.85 10^6/uL Hemoglobin 9.5 L 11.5-16.0 G/DL Hematocrit 34 L 35-52 % Mean Corpuscular Volume 76 L 80-99 FL Mean Corpuscular Hemoglobin 21 L 25-34 PG Mean Corpuscular Hemoglobin Concent 28 L 32-36 G/DL Red Cell Distribution Width 20.7 H 10.0-14.5 % Platelet Count 473 H 130-400 10^3/uL Mean Platelet Volume 10.3 7.4-10.4 FL Neutrophils (%) (Auto) 77 H 42-75 % Lymphocytes (%) (Auto) 12 12-44 % Monocytes (%) (Auto) 9 0-12 % Eosinophils (%) (Auto) 2 0-10 % Basophils (%) (Auto) 0 0-10 % Neutrophils # (Auto) 7.3 1.8-7.8 X 10^3 Lymphocytes # (Auto) 1.1 1.0-4.0 X 10^3 Monocytes # (Auto) 0.8 0.0-1.0 X 10^3 Eosinophils # (Auto) 0.2 0.0-0.3 10^3/uL Basophils # (Auto) 0.0 0.0-0.1 10^3/uL Sodium Level 140 135-145 MMOL/L Potassium Level 4.5 3.6-5.0 MMOL/L Chloride Level 102 98-107 MMOL/L Carbon Dioxide Level 27 21-32 MMOL/L Anion Gap 11 5-14 MMOL/L Blood Urea Nitrogen 11 7-18 MG/DL Creatinine 0.79 0.60-1.30 MG/DL Estimat Glomerular Filtration Rate > 60 BUN/Creatinine Ratio 14 Glucose Level 114 H 70-105 MG/DL Calcium Level 9.0 8.5-10.1 MG/DL Corrected Calcium 10.1 8.5-10.1 MG/DL Magnesium Level 1.9 1.8-2.4 MG/DL Total Bilirubin 0.3 0.1-1.0 MG/DL Aspartate Amino Transf (AST/SGOT) 18 5-34 U/L Alanine Aminotransferase (ALT/SGPT) 8 0-55 U/L Alkaline Phosphatase 97 40-136 U/L C-Reactive Protein High Sensitivity 4.94 H 0.00-0.50 MG/DL Total Protein 6.5 6.4-8.2 GM/DL Albumin 2.6 L 3.2-4.5 GM/DL Lipase 16 8-78 U/L Thyroid Stimulating Hormone (TSH) 7.14 H 0.35-4.94 UIU/ML Free Thyroxine 0.95 0.70-1.48 NG/DL Urine Color YELLOW Urine Clarity CLEAR Urine pH 8 5-9 Urine Specific [place] 1.010 L 1.016-1.022 Urine Protein NEGATIVE NEGATIVE Urine Glucose (UA) NEGATIVE NEGATIVE Urine Ketones NEGATIVE NEGATIVE Urine Nitrite NEGATIVE NEGATIVE Urine Bilirubin NEGATIVE NEGATIVE Urine Urobilinogen NORMAL NORMAL MG/DL Urine Leukocyte Esterase 1+ H NEGATIVE Urine RBC (Auto) NEGATIVE NEGATIVE Urine RBC NONE /HPF Urine WBC RARE /HPF Urine Squamous Epithelial Cells 2-5 /HPF Urine Crystals NONE /LPF Urine Bacteria NEGATIVE /HPF Urine Casts NONE /LPF Urine Mucus NEGATIVE /LPF Urine Culture Indicated NO My Orders Orders - MARLA EVERETT MD Cbc With Automated Diff (06/24/19 09:45) Comprehensive Metabolic Panel (06/24/19 09:45) Magnesium (06/24/19 09:45) Ed Iv/Invasive Line Start (06/24/19 09:45) Lactated Ringers (Lr 1000 Ml Iv Solution (06/24/19 09:45) Albuterol/Ipra Inhalation Soln (Duoneb I (06/24/19 10:30) Svn Small Volume Nebulizer (06/24/19 10:29) Chest 1 View, Ap/Pa Only (06/24/19 10:29) Hs C Reactive Protein (06/24/19 10:29) Lipase (06/24/19 10:29) Ua Culture If Indicated (06/24/19 11:18) Ct Abdomen/Pelvis W (06/24/19 11:24) Iohexol Injection (Omnipaque 350 Mg/Ml 1 (06/24/19 11:30) Received Contrast (Hold Metformin- Contr (06/24/19 11:30) Sodium Chloride Flush (Catheter Flush Sy (06/24/19 11:30) Ns (Ivpb) (Sodium Chloride 0.9% Ivpb Bag (06/24/19 11:30) Fentanyl Injection (Sublimaze Injection (06/24/19 11:45) Fentanyl Injection (Sublimaze Injection (06/24/19 12:45) Free T4 (Free Thyroxine) (06/24/19 13:41) Thyroid Stimulating Hormone (06/24/19 13:41) Medications Given in ED Vital Signs/I&O 06/24/19 06/24/19 06/24/19 09:59 10:43 14:10 Temp 99.2 Pulse 79 77 Resp 16 16 B/P (MAP) 107/64 (78) 115/77 (90) Pulse Ox 95 95 99 O2 Delivery Nasal Cannula Nasal Cannula Nasal Cannula O2 Flow Rate 3.00 3.00 3.00 06/25/19 00:00 Intake Total 1000 ml Balance 1000 ml Blood Pressure Mean: 78 Progress Progress Note : Progress Note Patient's pain was treated with fentanyl. Workup did not reveal any problems that required admission. There was some concern about patient's ability to function at home. I discussed the case with social work who was very familiar with the patient. They suggested a chcf placement. Patient refuses this option and insisted on going home. I discussed the case with Dr. Leon also states the patient declined chcf admission yesterday and pushed for discharge home. Patient was prescribed Zofran, probiotics, and a few hydrocodone to hold her over until follow-up with her primary care provider. Diagnostic Imaging Diagonstic Imaging: Xray Plain Films/CT/US/NM/MRI: chest Comments Chest x-ray viewed by me and report reviewed. See report below: NAME: MAULIK ELIZALDE [facility] REC#: [id number] PT STATUS: REG ER : 1965 PHYSICIAN: MARLA EVERETT MD ADMIT DATE: 06/24/19/ER Draft Date of Exam:06/24/19 CHEST 1 VIEW, AP/PA ONLY INDICATION: Diarrhea and weakness. COMPARISON: 06/21/2019 FINDINGS: Single frontal radiographic view of the chest was obtained and demonstrates chronic appearing coarse interstitial lung markings within both lung bases. There may be some minimal patchy bibasilar alveolar opacities as well. There is apparent prominent nodular opacity of the right perihilar region. Correlation with recent CT chest, however shows this to represent pulmonary artery on end. There is no large effusion or pneumothorax. Cardiac silhouette and pulmonary vasculature within normal limits. Osseous structures show no gross acute abnormalities. IMPRESSION: 1. Stable bibasilar opacities, which may be on the basis of chronic interstitial changes, although some component of acute superimposed alveolar infiltrate cannot be entirely excluded. Dictated on workstation # [id number] Dict: 06/24/19 1108 Trans: 06/24/19 1114 [id number] Interpreted by: SUSY BERNAL MD Diagonstic Imaging: CT Plain Films/CT/US/NM/MRI: abdomen, pelvis Comments CT abdomen and pelvis viewed by me and report reviewed. See report below: NAME: MAULIK ELIZALDE [facility] REC#: [id number] PT STATUS: DEP ER : 1965 PHYSICIAN: MRALA EVERETT MD ADMIT DATE: 06/24/19/ER Signed Date of Exam: 06/24/19 CT ABDOMEN/PELVIS W INDICATION: Diarrhea, weakness and peripheral vascular disease. EXAM: CT abdomen and pelvis obtained with IV contrast bolus and compared to 06/14/2019 FINDINGS: The visualized portions of the lung bases again show infiltrate in the right lower lobe. There is no pleural fluid collection. There is no free intraperineal air. A moderate-sized hiatal hernia is noted. The liver and gallbladder appear normal. The spleen, adrenals, and pancreas appear normal. The kidneys bilaterally shows cortical irregularity and scarring but no acute abnormality. There is no retroperitoneal mass or adenopathy. There is prominent stool throughout the colon with no overt obstruction. Urinary bladder appears unremarkable. There is an abdominal aortic aneurysm with stent graft device in place. There is no evidence of endoleak. Maximal aortic diameter currently is 3.1 cm. IMPRESSION: There is residual infiltrate in the right lower lobe compared with 06/14/2019. There is no pleural fluid or free air. There is a moderate-sized hiatal hernia. There is no abdominal mass or abnormal fluid collection. There is prominent stool throughout the colon, no overt obstruction. There is abdominal aortic aneurysm with stent graft device in place, with no evidence of endoleak. Dictated by: Dictated on workstation # [id number] Dict: 06/24/19 1230 Trans: 06/24/19 1431 Interpreted by: HERACLIO CARDOZA MD Electronically signed by: HERACLIO CARDOZA MD 06/24/19 1431 Departure Impression Primary Impression: Nausea vomiting and diarrhea Additional Impression: Left sided abdominal pain Disposition: 01 HOME, SELF-CARE Condition: Improved Departure-Patient Inst. Decision time for Depature: 13:54 Referrals: [facility] (PCP[facility]Family) Primary Care Physician Patient Instructions: Acute Abdomen (Belly Pain) Add. Discharge Instructions: Start with a clear liquid diet and drink plenty of clear liquids. Gradually advance your diet with small quantities of bland food as tolerated. Avoid milk products until 48 hours after diarrhea resolves. Add a probiotic as prescribed to help combat diarrhea. Follow-up with your primary care provider soon as possible. Please review your medications with your primary care provider as several of your medications can cause weakness and drowsiness. You're being provided with a limited amount of hydrocodone to cover your pain until you can follow-up with your primary care provider. Please bring these instructions with you to your follow-up appointment. Return to care if you have worsening symptoms. All discharge instructions reviewed with patient and/or family. Voiced understanding. Scripts Ondansetron (Ondansetron Odt) 4 Mg Tab.rapdis 4 MG SL Q4H PRN for NAUSEA/VOMITING, #10 TAB Prov: MARLA EVERETT MD 06/24/19 Hydrocodone Bit/Acetaminophen (Hydrocodone/Acetaminophen 5/325mg Tablet) 1 Tab Tab 1 EACH PO Q4-6HR PRN for PAIN-MODERATE MDD 10, #5 TAB Prov: MARLA EVERETT MD 06/24/19 L.acidoph & Paracasei,B.lactis (Probiotic) 1 Each Capsule 1 EACH PO TIDPC, #90 CAP Prov: MARLA EVERETT MD 06/24/19 Copy Copies To 1: QUE LEON MD Copies To 2: ROSE MERINO JOSHUA T MD Jun 24, 2019 11:21
[2019-06-24] MEDS ORDERED: HOLD METFORMIN - RECEIVED CONTRAST 20 ML VIAL IV SCH (11:30)
[2019-06-24] MEDS ORDERED: CATHETER FLUSH 10 ML SYR IV PRN (11:30)
[2019-06-24] MEDS ORDERED: IOHEXOL 350 MG/ML 100 ML (OMNIPAQUE 350) VIAL IV ONE (11:30)
[2019-06-24] MEDS ORDERED: NS 100 ML (IVPB) BAG IV ONE (11:30)
[2019-06-24] MEDS ORDERED: fentaNYL INJECTION 100 MCG/2 ML AMP IVP ONE ×2 (11:45→12:45)
--- NOTE | 2019-06-24 12:39 | Diagnostic Imaging Report ---
INDICATION: Diarrhea, weakness and peripheral vascular disease. EXAM: CT abdomen and pelvis obtained with IV contrast bolus and compared to 06/14/2019 FINDINGS: The visualized portions of the lung bases again show infiltrate in the right lower lobe. There is no pleural fluid collection. There is no free intraperineal air. A moderate-sized hiatal hernia is noted. The liver and gallbladder appear normal. The spleen, adrenals, and pancreas appear normal. The kidneys bilaterally shows cortical irregularity and scarring but no acute abnormality. There is no retroperitoneal mass or adenopathy. There is prominent stool throughout the colon with no overt obstruction. Urinary bladder appears unremarkable. There is an abdominal aortic aneurysm with stent graft device in place. There is no evidence of endoleak. Maximal aortic diameter currently is 3.1 cm. IMPRESSION: There is residual infiltrate in the right lower lobe compared with 06/14/2019. There is no pleural fluid or free air. There is a moderate-sized hiatal hernia. There is no abdominal mass or abnormal fluid collection. There is prominent stool throughout the colon, no overt obstruction. There is abdominal aortic aneurysm with stent graft device in place, with no evidence of endoleak. Dictated by: Dictated on workstation # [id number]
[2019-06-24 13:05] LABS: BILIRUBIN,URINE NEGATIVE (NEGATIVE); CLARITY,URINE CLEAR; COLOR,URINE YELLOW; GLUCOSE, URINE (UA) NEGATIVE (NEGATIVE); KETONES,URINE NEGATIVE (NEGATIVE); LEUKOCYTE ESTERASE ,URINE 1+ (NEGATIVE); NITRITE,URINE NEGATIVE (NEGATIVE); PH,URINE 8 (5-9); PROTEIN,URINE NEGATIVE (NEGATIVE); UROBILINOGEN,URINE NORMAL (NORMAL)
[2019-06-24 13:13] LABS: BACTERIA,URINE NEGATIVE /HPF; WBC,URINE RARE /HPF
[2019-06-24] MEDS ORDERED: ACHD5005 PO (13:58)
[2019-06-24] MEDS ORDERED: L.AC1CAP6 PO (13:58)
[2019-06-24] MEDS ORDERED: ONDA4TAB11 SL (13:58)
--- NOTE | 2019-06-24 14:05 | NUR ---
Attempted to call pt's sister for transportation; no answer.
[2019-06-24 14:10] VITALS: BP 115/77
[2019-06-24 14:19] LABS: FREE T4 (FREE THYROXINE) 0.95 NG/DL (0.70-1.48)
--- NOTE | 2019-06-24 15:00 | NUR ---
CARLOS/АЛЕКСАНДР. YANETH/LORY/Blanche Jimmie came this a.m. to see patient following up on recent intake report while patient was on acute care. Patient discharged yesterday to home and returned to ED today, discharged back to home. Blanche reported to internal communications writer she went to patient home and found out she was here in ED per family. Blanche also reported that while there, the dogs got up on the couch arm and jumped up and scratched her arm. She indicates that their nails were very overgrown. We discussed one remedy would be that the pets be taken to the vet for nail trims. Visualized patient arms today, they are in more of a healing phase with hard scabs due to her lengthy hospital inpatient stay. DCF to continue to follow patient until case is resolved.
== END 2019-06-24 14:11 | disposition home or self-care (01) ==
LOC: EDUNIT# 09:38 → ER 09:39
DX: R11.2 Nausea with vomiting, unspecified (principal); R19.7 Diarrhea, unspecified; R10.32 Left lower quadrant pain; J43.9 Emphysema, unspecified; J45.909 Unspecified asthma, uncomplicated; I10 Essential (primary) hypertension; I25.2 Old myocardial infarction; G43.909 Migraine, unspecified, not intractable, without status migrainosus; K21.9 Gastro-esophageal reflux disease without esophagitis; E11.9 Type 2 diabetes mellitus without complications; F41.9 Anxiety disorder, unspecified; F32.9 Major depressive disorder, single episode, unspecified; Z95.5 Presence of coronary angioplasty implant and graft; Z89.511 Acquired absence of right leg below knee; F17.210 Nicotine dependence, cigarettes, uncomplicated; Z99.81 Dependence on supplemental oxygen; Z88.0 Allergy status to penicillin; Z88.8 Allergy status to other drugs, medicaments and biological substances; Z88.6 Allergy status to analgesic agent; Z88.5 Allergy status to narcotic agent; Z79.84 Long term (current) use of oral hypoglycemic drugs; Z82.49 Family history of ischemic heart disease and other diseases of the circulatory system
CPT/HCPCS: 36415; 71045; 74177; 80053; 81000; 83690; 83735; 84439; 84443; 85025; 86141; 94640; 96361; 96374; 96376

== ENCOUNTER 2019-06-30 17:58 | Emergency (ER) | payer MEDICAID ==
[~2019-06-30] VITALS: Ht 170.2 cm; Wt 82.6 kg
[~2019-06-30 17:58] MED LIST changes: +ACHD5005 PO; +L.AC1CAP6 PO; +ONDA4TAB11 SL
--- OUTSIDE RECORDS SUMMARY | 2019-06-30 18:04 | XMS REPORT | Encounter Summary ---
Author Author [facility] Organization [facility] Address Unknown Phone Unavailable Care Team Providers Care Senior Applications Developer Name Role Phone Osvaldo Palafox DO Unavailable Hermila Durbin MD Unavailable Rishi Cartwright MD Unavailable Donell Haque PA-C Unavailable Lizet Parsons RN Unavailable Unavailable Kristofer Dowling MD Unavailable Unavailable Harvinder Jj MD PCP Slade Merino DO 4 Reason for Referral * Consult, Test & Treat (Routine) Referred By Contact Referred To Contact Status Reason Specialty Diagnoses / Procedures Pradip Jaramillo MD [address] [facility] [address] Closed Specialty Services Diagnoses Required Complete below knee amputation of lower extremity, right, sequela (HCC) Reason for Visit * Reason Comments Referral referral to physical therapy Encounter Details Care Team Description Date Type Department Pradip Jaramillo MD [address] [facility] [address] Referral (referral to physical therapy) 03/23/2019 Telephone [facility] [address] [place] [address] Social History Date Tobacco Use [...] would like to attend outpatient PT at [facility] in [place], [place]. Orders faxed to [phone], office [phone]. documented in this encounter Plan of Treatment Care Team Description Date Type Specialty Rishi Cartwright MD [address] [facility] [address] [place] [address] [phone] Mixed urge and stress incontinence 08/12/2019 Hospital Encounter Rishi Cartwright MD [address] [facility] [address] [place] [address] [phone] CYSTOURETHROSCOPY WITH INJECTION FOR CHEMODENERVATION OF THE [...]
--- OUTSIDE RECORDS SUMMARY | 2019-06-30 18:04 | XMS REPORT | Encounter Summary ---
Author Author [facility] Organization [facility] Address Unknown Phone Unavailable Care Team Providers Care Aquaculture Farm Manager Name Role Phone AnaliaOsvaldo echols Unavailable Hermila Durbin MD Unavailable Rishi Cartwright MD Unavailable Donell Haque PA-C Unavailable Lizet Parsons RN Unavailable Unavailable Kristofer Dowling MD Unavailable Unavailable Harvinder Jj MD PCP Slade Merino DO 4 Reason for Visit * Reason Comments Medication Follow-up Encounter Details Care Team Description Date Type Department Rishi Cartwright MD [address] [facility] [address] [place] [address] Medication Follow-up 06/09/2019 Telephone [facility] [address] [place] [address] Social History Date Tobacco Use [...] Date Type Specialty Rishi Cartwright MD [address] [facility] [address] [place] [address] [phone] Mixed urge and stress incontinence 08/12/2019 Hospital Encounter Rishi Cartwright MD [address] [facility] [address] [place] [address] [phone] CYSTOURETHROSCOPY WITH INJECTION FOR CHEMODENERVATION OF THE BLADDER (BOTOX 200 UNITS) 08/12/2019 Surgery documented as of this encounter Visit Diagnoses Not on filedocumented in this encounter
--- OUTSIDE RECORDS SUMMARY | 2019-06-30 18:04 | XMS REPORT | Encounter Summary ---
Author Author [facility] Organization [facility] Address Unknown Phone Unavailable Care Team Providers Care Director Of Sustainability Programs Name Role Phone Analiaonesimo Osvaldo PRAKASH Unavailable Hermila Durbin MD Unavailable Rishi Cartwright MD Unavailable Donell Haque PA-C Unavailable Lizet Parsons RN Unavailable Unavailable Kristofer Dowling MD Unavailable Unavailable Harvinder Jj MD PCP Slade Merino DO 4 Reason for Visit * Reason Comments Medication Refill Encounter Details Care Team Description Date Type Department Slade Prasad MD [address] [place] [address] 04/11/2019 Refill [facility] [address] [id number] Social History Date Tobacco Use Types Packs/Day [...] Date Type Specialty Rishi Cartwright MD [address] [facility] [address] [place] [address] [phone] Mixed urge and stress incontinence 08/12/2019 Hospital Encounter Rishi Cartwright MD [address] [facility] [address] [place] [address] [phone] CYSTOURETHROSCOPY WITH INJECTION FOR CHEMODENERVATION OF THE BLADDER (BOTOX 200 UNITS) 08/12/2019 Surgery documented as of this encounter Visit Diagnoses Not on filedocumented in this encounter
--- OUTSIDE RECORDS SUMMARY | 2019-06-30 18:04 | XMS REPORT | Encounter Summary ---
Author Author [facility] Organization [facility] Address Unknown Phone Unavailable Care Team Providers Care Shovel Oiler Name Role Phone AnaliaOsvaldo echols Unavailable Hermila Durbin MD Unavailable Rishi Cartwright MD Unavailable Donell Haque PA-C Unavailable Lizet Parsons RN Unavailable Unavailable Kristofer Dowling MD Unavailable Unavailable Harvinder Jj MD PCP Slade Merino DO 4 Reason for Visit * Reason Comments Results Urine culture Encounter Details Care Team Description Date Type Department Rishi Cartwright MD [address] Ortho/Med Pavilion [address] [place] [address] Results (Urine culture) 06/06/2019 Telephone [facility] [address] 2 [place] [address] Social History Date Tobacco Use [...] 2:10 PM CDT ----- Message from Rishi Cratwright MD sent at 06/06/2019 8:00 AM CDT ----- Please see urine culture results. Please contact the patient with this informat ion. Recommend Nitrofurantoin 100 mg PO BID x 7 days. documented in this encounter Plan of Treatment Care Team Description Date Type Specialty Rishi Cartwright MD [address] [facility] Ortho/Med Pavilion [address] [place] [address] [phone] Mixed urge and stress incontinence 08/12/2019 Hospital Encounter Rishi Cartwright MD [address] Ortho/Med Pavilion [address] [place] [address] [phone] CYSTOURETHROSCOPY WITH INJECTION FOR CHEMODENERVATION OF THE BLADDER (BOTOX 200 UNITS) 08/12/2019 Surgery documented as of this encounter Visit Diagnoses Not on filedocumented in this encounter
--- OUTSIDE RECORDS SUMMARY | 2019-06-30 18:04 | XMS REPORT | Encounter Summary ---
Author Author [facility] Organization [facility] Address Unknown Phone Unavailable Care Team Providers Care Clinical Care Coordinator Name Role Phone Osvaldo Palafox DO Unavailable Hermila Durbin MD Unavailable Rishi Cartwright MD Unavailable Donell Haque PA-C Unavailable Lizet Parsons RN Unavailable Unavailable Kristofer Dowling MD Unavailable Unavailable Harvinder Jj MD PCP Slade Merino DO 4 Reason for Referral * Consult, Test & Treat (Routine) Referred By Contact Referred To Contact Status Reason Specialty Diagnoses / Procedures Slade Prasad MD [address] [place] [address] [facility] [address] [place] [id number] Closed Specialty Services Diagnoses Required Below knee amputation status, right (HCC) Gait abnormality Reason for Visit * Reason Comments Amputation prosthetic evaluation Encounter Details Care Team Description Date Type Department Slade Prasad MD [address] [facility] [place] [address] Below knee amputation status, right (HCC) (Primary Dx); Gait abnormality; 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 Slade Prasad [facility] [address] Mailstop [address] [place], [place] [address] For scheduling, cancelling, or changing appointments [phone] For prescription refills, please contact your pharmacy. Please allow 2-3 days f or refill requests to be filled. For information on spinal conditions, please visit [email or web address] documented in this encounter Progress Notes * [...] for IADL such as shopping, and attends [facility] services and events such as dog walking, [...] COPD (chronic obstructive pulmonary disease) ([facility]) Depression DM (diabetes mellitus) ([facility]) Dyslipidemia GERD (gastroesophageal reflux disease) Hayfever HTN (hypertension) Hypothyroidism IC (interstitial cystitis) Ischemic cardiomyopathy Mixed stress and urge urinary incontinence Myocardial infarction ([facility]) 2009 Neuropathy OAB (overactive bladder) On supplemental oxygen therapy 2L at night Seizure ([facility]) in high school Tobacco use Past Surgical History: Procedure Laterality Date CORONARY STENT PLACEMENT 2008 PUBOVAGINAL SLING 01/28/2012 CYSTOSCOPY 08/03/2013 Macroplastique bladder neck injection\\ PUBOVAGINAL SLING 10/22/2013 HX HEART CATHETERIZATION 2013 CYSTOSCOPY 09/12/2014 Bladder Botox injection; Dr. Sinclair CYSTOSCOPY 03/06/2015 Bladder Botox injection; Dr. iSnclair CYSTOSCOPY 09/04/2015 Bladder Botox injection; Dr. Sinclair URETEROSCOPY 10/05/2015 Cystoscopy, right-sided ureteroscopy, cytology, ureteral biopsy, and ureteral s tent placement; Dr. Durbin CYSTOSCOPY N/A 03/04/2016 CYSTOSCOPY, INTRAVESICAL BOTOX INJECTIONS (200 UNITS) performed by Hermila Durbin MD at [facility]iop [place] CYSTOURETHROSCOPY INJ CHEMODENERVATION BLADDER N/A 09/16/2016 CYSTOSCOPY BOTOX INJECTIONS (200 UNITS) performed by Hermila Durbin MD at [facility] OR/Periop ABDOMINAL AORTIC ANEURYSM REPAIR, OPEN 2017 [place] CYSTOURETHROSCOPY INJ CHEMODENERVATION BLADDER N/A 03/17/2017 CYSTOSCOPY [...] Date Type Specialty Rishi Cartwright MD [address] [facility] [address] [place] [address] [phone] Mixed urge and stress incontinence 08/12/2019 Hospital Encounter Rishi Cartwright MD [address] Ortho/Med Pavilion [address] [place] [address] [phone] CYSTOURETHROSCOPY WITH INJECTION FOR CHEMODENERVATION OF THE [...]
--- OUTSIDE RECORDS SUMMARY | 2019-06-30 18:04 | XMS REPORT | Encounter Summary ---
Author Author [facility] Organization [facility] Address Unknown Phone Unavailable Care Team Providers Care Inside Tester Name Role Phone AnaliaonesimoOsvaldo DO Unavailable Hermila Durbin MD Unavailable Rishi Cartwright MD Unavailable Donell Haque PA-C Unavailable Lizet Parsons RN Unavailable Unavailable Kristofer Dowling MD Unavailable Unavailable Harvinder Jj MD PCP Slade Merino DO 4 Reason for Referral * Radiology Services (Routine) Referred By Contact Referred To Contact Status Reason Specialty Diagnoses / Procedures Rishi Cartwright MD [address] Ortho/Med Pavilion [address] [place] [address] New Request Radiology Diagnoses Urge incontinence Urinary urgency Urinary frequency P rocedures VIDEO URODYAMIC VOIDING IN RAD Encounter Details Care Team Description Date Type Department Rishi Cartwright MD [address] Ortho/Med Pavilion [address] [place] [address] Urge incontinence (Primary Dx); Urinary urgency; Urinary frequency 06/09/[address] [facility] [address] [place] [address] Social History Date Tobacco Use [...] Date Type Specialty Rishi Cartwright MD [address] Ortho/Med Pavilion [address] [place] [address] [phone] Mixed urge and stress incontinence 08/12/2019 Hospital Encounter Rishi Cartwright MD [address] Ortho/Med Pavilion [address] [place] [address] [phone] CYSTOURETHROSCOPY WITH INJECTION FOR CHEMODENERVATION OF THE [...]
--- OUTSIDE RECORDS SUMMARY | 2019-06-30 18:04 | XMS REPORT | Encounter Summary ---
Author Author [facility] Organization [facility] Address Unknown Phone Unavailable Care Team Providers Care Arabic Linguist Name Role Phone Sarbjitmaryanne Osvaldo PRAKASH Unavailable Hermila Durbin MD Unavailable Rishi Cartwright MD Unavailable Donell Haque PA-C Unavailable Lizet Parsons RN Unavailable Unavailable Kristofer Dowling MD Unavailable Unavailable Harvinder Jj MD PCP Slade Merino DO 4 Reason for Visit * Reason Comments Pain right leg pain Encounter Details Care Team Description Date Type Department Slade Prasad MD [address] [facility] [place] [address] Pain (right leg pain) 04/08/2019 Telephone The [facility] [address] [address] Social History Date Tobacco [...] Date Type Specialty Rishi Cartwright MD [address] Ortho/Med Pavilion L[address] [place] [address] [phone] Mixed urge and stress incontinence 08/12/2019 Hospital Encounter Rishi Cartwright MD [address] Ortho/Med Pavilion [address] [place] [address] [phone] CYSTOURETHROSCOPY WITH INJECTION FOR CHEMODENERVATION OF THE BLADDER (BOTOX 200 UNITS) 08/12/2019 Surgery documented as of this encounter Visit Diagnoses Not on filedocumented in this encounter
--- OUTSIDE RECORDS SUMMARY | 2019-06-30 18:04 | XMS REPORT | Clinical Summary ---
Author Author [facility] Organization [facility] Address Unknown Phone Unavailable Care Team Providers Care Brick Molder Hand Name Role Phone Osvaldo Palafox DO Unavailable [...] you expected, contact Release of Information in [facility] Health Information Management department at [phone] for further assistan ce in locating additional records.[facility] Allergies Comments Active Allergy Reactions [...] Durbin - referral to Dr. Carlton in Forensic Investigator for vaginal pain Gross hematuria 10/24/2015 Overview: [...] Description Date Type Specialty Rishi Cartwright MD Scheduling 06/27/2019 Telephone Urology Rishi Cartwright MD Urge incontinence (Primary Dx); [...] (right leg pain) 04/08/2019 Telephone Rehabilitation Medicine from Last 3 Months Immunizations Name Administration [...] AM CDT Temperature 16 10/24/2015 3:18 PM PATIENT SVCS MGR Respiratory Rate 95% 03/11/2019 8:33 AM CDT Oxygen Saturation - - Inhaled Oxygen Concentration 82.6 kg (182 lb) 06/03/2019 1:10 PM CDT Weight 170.2 cm (5' 7") 06/03/2019 1:10 PM CDT Height 28.51 06/03/2019 1:10 PM CDT Body Mass Index Plan of Treatment Care Team Description Date Type Specialty Rishi Cartwright MD [address] [facility] Ortho/Med Pavilion Lvl [address] [place] [address] [phone] Mixed urge and stress incontinence 08/12/2019 Hospital Encounter Rishi Cartwright MD [address] Ortho/Med Pavilion [address] [place] [address] [phone] CYSTOURETHROSCOPY WITH INJECTION FOR CHEMODENERVATION OF THE [...] COLI, ESBL POSITIVE (A) Report Status FINAL [facility] 06/06/2019 Organism ID >[id number] organisms/ml MAIN [...] positive Performing Organization Address City/State/Zipcode Phone Number [facility] [address] [place] [address] * POC URINE DIPSTICK MANUAL READ (06/03/2019) Urine Glucose neg IN CLINIC POC Urine Bilirubin neg IN CLINIC POC Urine Ketone neg IN CLINIC POC Urine Specific 1.005 IN CLINIC [place] POC Urine Blood POC neg IN CLINIC [...] Phone Address Plan / Dates Group Medicaid [employer] [facility] xxxxxxxxxxx [id number] [facility] Advance Directives Patient Hand Touch Up Painter Explanation Type Date Recorded Advance 09/08/2014 3:19 [...]
--- OUTSIDE RECORDS SUMMARY | 2019-06-30 18:04 | XMS REPORT | Encounter Summary ---
Author Author [facility] Organization [facility] Address Unknown Phone Unavailable Care Team Providers Care Belt Glass Sander Name Role Phone AnaliaOsvaldo echols Unavailable Hermila Durbin MD Unavailable Rishi Cartwright MD Unavailable Donell Haque PA-C Unavailable Lizet Parsons RN Unavailable Unavailable Kristofer Dowling MD Unavailable Unavailable Harvinder Jj MD PCP Slade Merino DO 4 Reason for Visit * Reason Comments Urinary Frequency Urinary Incontinence Encounter Details Care Team Description Date Type Department Rishi Cartwright MD [address] Ortho/Med Pavilion [address] [place] [address] Acute cystitis without hematuria (Primary Dx); Urge incontinence; Urinary urgency; Urinary frequency 06/03/2019 Office Visit [facility] [address] [place] [address] Social History Date Tobacco Use [...] instru ctions. Thank you for choosing the [facility] Department of Urology for your health [...] a 54 y.o. female w/ PMH of MD, DM, and mixed urinary and str ess incontinence who presents for worsening of voiding dysfunction following derek botulinum treatment in 01/2019. History of Present Illness Xin Fonseca is a 54 y.o. female w/ PMH of MD, DM, and mixed urinary and str ess [...] by Hermila Durbin MD at [facility]iop [place] CYSTOURETHROSCOPY INJ CHEMODENERVATION BLADDER N/A 09/16/2016 CYSTOSCOPY BOTOX INJECTIONS (200 UNITS) performed by Hermila Durbin MD at [facility] OR[facility]Periop ABDOMINAL AORTIC ANEURYSM REPAIR, OPEN 2017 [place] CYSTOURETHROSCOPY INJ CHEMODENERVATION BLADDER N/A 03/17/2017 CYSTOSCOPY [...] a 54 y.o. female w/ PMH of MD, DM, and mixed urinary and st ress [...] Date Type Specialty Rishi Cartwright MD [address] Ortho/Med Pavilion [address] [place] [address] [phone] Mixed urge and stress incontinence 08/12/2019 Hospital Encounter Rishi Cartwright MD [address] Ortho/Med Pavilion [address] [place] [address] [phone] CYSTOURETHROSCOPY WITH INJECTION FOR CHEMODENERVATION OF THE [...] Phone Number [facility] [address] [place] [address] * POC URINE DIPSTICK MANUAL READ (06/03/2019) Urine Glucose neg IN CLINIC POC Urine Bilirubin neg IN CLINIC POC Urine Ketone neg IN CLINIC POC Urine Specific 1.005 IN CLINIC [place] POC Urine Blood POC neg IN CLINIC Urine PH POC 7.5 IN CLINIC Urine Protein neg IN CLINIC POC Urine 0.2 IN CLINIC Urobilinogen POC Urine Nitrite positive IN CLINIC POC Urine moderate IN CLINIC Leukocytes POC Color,UA yellow IN CLINIC Turbidity,UA clear IN CLINIC Specimen Urine - Urine Performing Organization Address [facility] Number [facility] documented in this encounter Visit Diagnoses Diagnosis Acute cystitis without hematuria - Primary Acute cystitis Urge incontinence Urinary urgency Urgency of urination Urinary frequency documented in this encounter
--- OUTSIDE RECORDS SUMMARY | 2019-06-30 18:04 | XMS REPORT | Encounter Summary ---
Author Author [facility] Organization [facility] Address Unknown Phone Unavailable Care Team Providers Care X Ray Developer Name Role Phone AnaliaOsvaldo echols Unavailable Hermila Durbin MD Unavailable Rishi Cartwright MD Unavailable Donell Haque PA-C Unavailable Lizet Parsons RN Unavailable Unavailable Kristofer Dowling MD Unavailable Unavailable Harvinder Jj MD PCP Slade Merino DO 4 Encounter Details Care Team Description Date Type Department Rishi Cartwright MD [address] Ortho/Med Pavilion [address] [place] [address] 06/08/2019 Documentation [facility] [address] [place] [address] Social History Date Tobacco Use [...] Date Type Specialty Rishi Cartwright MD [address] Orth[facility]/Med Pav[facility] [address] [place] [address] [phone] Mixed urge and stress incontinence 08/12/2019 Hospital Encounter Rishi Cartwright MD [address] Ortho/Med Pavilion [address] [place] [address] [phone] CYSTOURETHROSCOPY WITH INJECTION FOR CHEMODENERVATION OF THE BLADDER (BOTOX 200 UNITS) 08/12/2019 Surgery documented as of this encounter Visit Diagnoses Not on filedocumented in this encounter
--- OUTSIDE RECORDS SUMMARY | 2019-06-30 18:04 | XMS REPORT | Encounter Summary ---
Author Author [facility] Organization [facility] Address Unknown Phone Unavailable Care Team Providers Care Snack Bar Cook Name Role Phone AnaliaOsvaldo echols Unavailable Hermila Durbin MD Unavailable Rishi Cartwright MD Unavailable Donell Haque PA-C Unavailable Lizet Parsons RN Unavailable Unavailable Kristofer Dowling MD Unavailable Unavailable Harvinder Jj MD PCP Slade Merino DO 4 Reason for Visit * Reason Comments Scheduling Encounter Details Care Team Description Date Type Department Rishi Cartwright MD [address] Ortho/Med Pavilion [address] [place] [address] Scheduling 06/27/2019 Telephone [facility] [address] [place] [address] Social History Date Tobacco Use [...] encounter Miscellaneous Notes * Telephone Encounter - Charlene Riggins - 06/27/2019 11:15 AM CDT Called Pt to set up appt for VUDS and cysto with Dr. Cartwright . Left a voicemai l with call back number documented in this encounter Plan of Treatment Care Team Description Date Type Specialty Rishi Cartwright MD [address] Ortho/Med Pavilion [address] [place] [address] [phone] Mixed urge and stress incontinence 08/12/2019 Hospital Encounter Rishi Cartwright MD [address] Ortho/Med Pavilion [address] [place] [address] [phone] CYSTOURETHROSCOPY WITH INJECTION FOR CHEMODENERVATION OF THE BLADDER (BOTOX 200 UNITS) 08/12/2019 Surgery documented as of this encounter Visit Diagnoses Not on filedocumented in this encounter
--- OUTSIDE RECORDS SUMMARY | 2019-06-30 18:05 | XMS REPORT | Encounter Summary ---
Author Author [facility] Organization [facility] Address Unknown Phone Unavailable Care Team Providers Care Cardiac Monitor Name Role Phone SarbjitmaryanneOsvaldo DO Unavailable Hermila Durbin MD Unavailable Rishi Cartwright MD Unavailable Donell Haque PA-C Unavailable Lizet Parsons RN Unavailable Unavailable Kristofer Dowling MD Unavailable Unavailable Harvinder Jj MD PCP Slade Merino DO 4 Reason for Visit * Auth/Cert Referred By Contact Referred To Contact Status Reason Specialty Diagnoses / Procedures Diagnoses Urge incontinence Urge incontinence [N39.41] P rocedures [place] CYSTOURETHROSCOPY INJ CHEMODENERVATION BLADDER CYSTOURETHROSCOPY WITH INJECTION FOR CHEMODENERVATION OF THE BLADDER (BOTOX 200 UNITS) Encounter Details Care Team Description Date Type Department [place] Yeh SRNA 02/08/2019 Anesthesia [facility] [place] [address] [address] Anesthesia Record Responsible Anesthesiologist Anesthesia [...] (chronic obstructive pulmonary disease) ([facility]) Depression DM (diabetes mellitus) (HCC) Dyslipidemia GERD [...] (200 UNITS) performed by Hermila gordillo MD [place] CYSTOURETHROSCOPY INJ CHEMODENERVATION BLADDER N/A 09/16/2016 CYSTOSCOPY BOTOX INJECTIONS (200 UNITS) performed by Hermila Durbin MD at [facility] OR/Periop ABDOMINAL AORTIC ANEURYSM REPAIR, OPEN 2017 [place] CYSTOURETHROSCOPY INJ CHEMODENERVATION BLADDER N/A 03/17/2017 CYSTOSCOPY WITH INTRAVESICAL BLADDER BOTOX INJECTIONS (200 UNITS) performed by Hermila Durbin MD at [facility] OR/Periop LEG AMPUTATION BELOW KNEE Right [...] 24 hours: Yes Hypertension, poorly controlled Past DC (Unsure of time line), > 6 months Coronary artery disease PTCA (Unsure how long ago): drug-eluting stent PVD (Recent AAA repair) Hyperlipidemia (taking a statin) Reports evaluated earlier this year by her [place] seamer. GI/Hepatic/Renal GERD ( taking PPI), well controlled [...] Blood Consent: consented Plan discussed with: anesthesiologist, GYROSCOPE TECHNICIAN and SRNA. Addendum: Cardiac cath report 02/2018 [...] Date Type Specialty Rishi Cartwright MD [address] Ortho/Med Pavilion [address] [place] [address] [phone] Mixed urge and stress incontinence 08/12/2019 Hospital Encounter Rishi Cartwright MD [address] Ortho/Med Pavilion [address] [place] [address] [phone] CYSTOURETHROSCOPY WITH INJECTION FOR CHEMODENERVATION OF THE [...]
--- OUTSIDE RECORDS SUMMARY | 2019-06-30 18:05 | XMS REPORT | Encounter Summary ---
Author Author [facility] Organization [facility] Address Unknown Phone Unavailable Care Team Providers Care School Inspector Name Role Phone Osvaldo Palafox DO Unavailable Hermila Durbin MD Unavailable Rishi Cartwright MD Unavailable Donell Haque PA-C Unavailable Lizet Parsons RN Unavailable Unavailable Kristofer Dowling MD Unavailable Unavailable Harvinder Jj MD PCP Slade Merino DO 4 Reason for Visit * Auth/Cert Referred By Contact Referred To Contact Status Reason Specialty Diagnoses / Procedures Diagnoses Urge incontinence Urge incontinence [N39.41] P rocedures [place] CYSTOURETHROSCOPY INJ CHEMODENERVATION BLADDER CYSTOURETHROSCOPY WITH INJECTION FOR CHEMODENERVATION OF THE BLADDER (BOTOX 200 UNITS) Encounter Details Care Team Description Date Type Department Hermila Durbin MD [address] Ortho/Med Pavilion Lvl [address] [place] [address] CYSTOURETHROSCOPY WITH INJECTION FOR CHEMODENERVATION OF THE BLADDER (BOTOX 200 UNITS) 02/08/2019 Surgery [facility] - [facility] OR [address] [address] Social History Date Tobacco Use [...] Kirti Olivas, RN - 01/19/2019 11:24 AM FINISHER MAP AND CHART GENERAL INFORMATION Before you come to the hospital Make arrangements for a responsible adult to drive you home and stay with you for 24 hours following surgery. Bath/Shower Instructions {BATH/SHOWER INSTRUCTIONS:10364} Leave money, credit cards, jewelry, and any other valuables at home. The [facility] is not responsible for the loss or breakage of persona l items. Remove nail danish, makeup and all jewelry (including piercings) before comin g to the hospital. The morning of your procedure: brush your teeth and tongue do not smoke do not shave the area where you will have surgery What to bring to the hospital ID/ Insurance Card Equity Sales Assistant card Official documents for legal guardianship Copy of your Living Will, Advanced Directives, and/or Durable Power of Attorn ey Small bag with a few personal belongings {OTHER PERSONAL ITEMS:03874} Dress in clean, loose, comfortable clothing Eating or drinking before surgery {FOOD/DRINK:75084} Other instructions: Other instructions Notify your surgeon if: there is a possibility that you are you become ill with a cough, fever, sore throat, nausea, vomiting or flu-like symptoms you have any open wounds/sores that are red, painful, draining, or are new si nce you last saw the doctor you need to cancel your procedure {ARRIVAL TIME:} Notify us at {SURGERY CONTACT PHONE NUMBERS:[phone]} if you need to cancel your procedure if you are going to be late Arrival at the hospital SHER MAP AND CHART * Pre-Anesthesia Medication Instructions* Reji Vazquez, PHARMD - 01/20/2019 12:46 PM FINISHER MAP AND CHART YOUR MEDICATIONS: albuterol (VENTOLIN HFA, PROAIR HFA) [...] any medicine updates o r questions. E-mail: [email or web address] Before going home from the hospital, please ask your doctor when you should re-s tart your medicines that were stopped before surgery. SHER MAP AND CHART documented in this encounter Medications at Time [...] Reji Vazquez, PHARMD - 01/20/2019 12:49 PM FINISHER MAP AND CHART PAC Pharmacist Medication Plan Note: We were [...] patient who verbalized understanding. Reji Vazquez PHARMD SHER MAP AND CHART * Kirti Olivas RN - 01/19/2019 11:30 AM FINISHER MAP AND CHART PAC phone triage assessment completed with pt [...] understanding of instructions and declined a copy. SHER MAP AND CHART documented in this encounter H&P Notes * [...] 24 hours): POC Glucose (Download): 98 (02/08/19 1129) I have examined the patient, and there are no significant changes in their condi tion, from the previous H&P performed on 01/10/19. Maicol Marshall MD Pager [phone] ATTESTATION I personally performed the james portions of the E/M visit, discussed case with re sident and concur with resident documentation of history, physical exam, assessm ent, and treatment plan unless otherwise noted. Staff name: Hermila Durbni MD * Hermila Durbin MD - 01/10/2019 2:45 PM FINISHER MAP AND CHART Date of Service: 01/10/2019 Subjective: History of [...] COPD (chronic obstructive pulmonary disease) ([facility]) Depression DM (diabetes mellitus) ([facility]) Dyslipidemia GERD (gastroesophageal reflux disease) Hayfever HTN [...] (200 UNITS) performed by Hermila gordillo MD [place] CYSTOURETHROSCOPY INJ CHEMODENERVATION BLADDER N/A 09/16/2016 CYSTOSCOPY BOTOX INJECTIONS (200 UNITS) performed by Hermila Durbin MD at [facility] OR/Periop ABDOMINAL AORTIC ANEURYSM REPAIR, OPEN 2017 [place] CYSTOURETHROSCOPY INJ CHEMODENERVATION BLADDER N/A 03/17/2017 CYSTOSCOPY [...] otherwise noted. Staff name: Hermila Durbin MD SHER MAP AND CHART documented in this encounter Miscellaneous Notes * [...] Specimen(s) Removed/Disposition: none Maicol Marshall MD Pager [phone] ATTESTATION I performed this procedure with a resident. Staff name: Hermila Durbin MD documented in this encounter Plan of Treatment Care Team Description Date Type Specialty Rishi Cartwright MD [address] [facility] Ortho/Med Pavilion Lvl [address] [place] [address] [phone] Mixed urge and stress incontinence 08/12/2019 Hospital Encounter Rishi Cartwright MD [address] [facility] Ortho/Med Pavilion Lvl [address] [place] [address] [phone] CYSTOURETHROSCOPY WITH INJECTION FOR CHEMODENERVATION OF THE [...] MG/DL MAIN LAB Specimen Performing Organization Address [facility] Phone Number MAIN LAB [address] [place] [address] * POC GLUCOSE (02/08/2019 11:21 AM CDT) Glucose, POC 98 70 - 100 MG/DL MAIN LAB Specimen Performing Organization Address City/[facility] Phone Number MAIN LAB [address] [place] [address] * TELEMETRY STRIPS-SCAN (02/08/2019 12:00 AM CDT) [...]
--- OUTSIDE RECORDS SUMMARY | 2019-06-30 18:05 | XMS REPORT | Encounter Summary ---
Author Author [facility] Organization [facility] Address Unknown Phone Unavailable Care Team Providers Care Corporate Pilot Name Role Phone Osvaldo Palafox Unavailable Hermila Durbin MD Unavailable Rishi Cartwright MD Unavailable Donell Haque PA-C Unavailable Lizet Parsons RN Unavailable Unavailable Kristofer Dowling MD Unavailable Unavailable Harvinder Jj MD PCP Slade Merino DO 4 Reason for Visit * Reason Comments Prior Authorization Encounter Details Care Team Description Date Type Department Hermila Durbin MD [address] Ortho/Med Pavilion Lvl [address] [place] [address] Prior Authorization 03/02/2019 Telephone [facility] [address] [place] [address] Social History Date Tobacco [...] 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 She will hear something back with [...] [facility] Ortho/Med Pavilion Lvl [address] [place] [address] [phone] Mixed urge and stress incontinence 08/12/2019 Hospital Encounter Rishi Cartwright MD [address] Orth[facility]/Med Pavilion [address] [place] [address] [phone] CYSTOURETHROSCOPY WITH INJECTION FOR CHEMODENERVATION OF THE BLADDER (BOTOX 200 UNITS) 08/12/2019 Surgery documented as of this encounter Visit Diagnoses Not on filedocumented in this encounter
--- OUTSIDE RECORDS SUMMARY | 2019-06-30 18:05 | XMS REPORT | Encounter Summary ---
Author Author [facility] Organization [facility] Address Unknown Phone Unavailable Care Team Providers Care Lapel Padder Blindstitch Name Role Phone AnaliaOsvaldo echols Unavailable Hermila Durbin MD Unavailable Rishi Cartwright MD Unavailable Donell Haque PA-C Unavailable Lizet Parsons RN Unavailable Unavailable Kristofer Dowling MD Unavailable Unavailable Havrinder Jj MD PCP Slade Merino DO 4 Reason for Visit * Reason Comments Medication Refill Encounter Details Care Team Description Date Type Department Hermila Durbin MD [address] Ortho/Med Pavilion Lvl [address] [place] [address] [phone] 02/28/2019 Refill [facility] [address] [place], [place] [id number] Social History Date Tobacco Use Types Packs/Day [...] Date Type Specialty Rishi Cartwright MD [address] Ortho/Med Pavilion L[address] [place] [address] [phone] Mixed urge and stress incontinence 08/12/2019 Hospital Encounter Rishi Cartwright MD [address] Ortho/Med Pavilion Lvl [address] [place] [address] [phone] CYSTOURETHROSCOPY WITH INJECTION FOR CHEMODENERVATION OF THE BLADDER (BOTOX 200 UNITS) 08/12/2019 Surgery documented as of this encounter Visit Diagnoses Not on filedocumented in this encounter
--- OUTSIDE RECORDS SUMMARY | 2019-06-30 18:06 | XMS REPORT | Encounter Summary ---
Author Author [facility] Organization [facility] Address Unknown Phone Unavailable Care Team Providers Care Merchandise Coordinator Name Role Phone sOvaldo Palafox Unavailable Hermila Durbin MD Unavailable Rishi Cartwright MD Unavailable Donell Haque PA-C Unavailable Lizet Parsons RN Unavailable Unavailable Kristofer Dowling MD Unavailable Unavailable Harvinder Jj MD PCP Slade Merino DO 4 Reason for Visit * Reason Comments Medication Question Encounter Details Care Team Description Date Type Department Hermila Durbin MD [address] Ortho/Med Pavilion Lvl [address] [place] [address] Medication Question 01/11/2019 Telephone [facility] [address] [place] [address] Social History Date Tobacco Use [...] - Elena Henriquez - 01/11/2019 4:38 PM 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 She stated she has been taking 15 mg and her new prescription says 10 mg. She is concerned that the 15 mg wasn't even working for her so why is she taking the 10 mg, per pt. Please speak with MD Durbin regarding oxybutynin and call pt back if there needs to be a change. SUPERVISOR documented in this encounter Plan of Treatment Care Team Description Date Type Specialty Rishi Cartwright MD [address] Ortho/Med Pavilion L[address] [place] [address] [phone] Mixed urge and stress incontinence 08/12/2019 Hospital Encounter Rishi Cartwright MD [address] Ortho/Med Pavilion [address] [place] [address] [phone] CYSTOURETHROSCOPY WITH INJECTION FOR CHEMODENERVATION OF THE BLADDER (BOTOX 200 UNITS) 08/12/2019 Surgery documented as of this encounter Visit Diagnoses Not on filedocumented in this encounter
--- OUTSIDE RECORDS SUMMARY | 2019-06-30 18:06 | XMS REPORT | Encounter Summary ---
Author Author [facility] Organization [facility] Address Unknown Phone Unavailable Care Team Providers Care Merchandise Manager Name Role Phone Osvaldo Palafox DO [...] Date Type Department Hermila Durbin MD [address] Ortho/Med Pavilion Lvl [address] [place] [address] Urge incontinence 02/08/2019 Hospital [facility] OR [address] [address] Social History Date Tobacco Use [...] Kirti Olivas, RN - 01/19/2019 11:24 AM RECOVERY ENGINEER GENERAL INFORMATION Before you come to the hospital Make arrangements for a responsible adult to drive you home and stay with you for 24 hours following surgery. Bath/Shower Instructions {BATH/SHOWER INSTRUCTIONS:17125} Leave money, credit cards, jewelry, and any other valuables at home. The [facility] is not responsible for the loss or breakage of persona l items. Remove nail pakistani, makeup and all jewelry (including piercings) before comin g to the hospital. The morning of your procedure: brush your teeth and tongue do not smoke do not shave the area where you will have surgery What to bring to the hospital ID/ Insurance Card Ip Counsel card Official documents for legal guardianship Copy of your Living Will, Advanced Directives, and/or Durable Power of Attorn ey Small bag with a few personal belongings {OTHER PERSONAL ITEMS:10274} Dress in clean, loose, comfortable clothing Eating or drinking before surgery {FOOD/DRINK:30354} Other instructions: Other instructions Notify your surgeon if: there is a possibility that you are you become ill with a cough, fever, sore throat, nausea, vomiting or flu-like symptoms you have any open wounds/sores that are red, painful, draining, or are new si nce you last saw the doctor you need to cancel your procedure {ARRIVAL TIME:} Notify us at {SURGERY CONTACT PHONE NUMBERS:[phone]} if you need to cancel your procedure if you are going to be late Arrival at the hospital VERY ENGINEER * Pre-Anesthesia Medication Instructions* Reji Vazquez, PHARMD - 01/20/2019 12:46 PM RECOVERY ENGINEER YOUR MEDICATIONS: albuterol (VENTOLIN HFA, PROAIR HFA) [...] updates o r questions. E-mail: [email or web address] Before going home from the hospital, please ask your doctor when you should re-s tart your medicines that were stopped before surgery. VERY ENGINEER documented in this encounter Medications at Time [...] Reji Vazquez, PHARMD - 01/20/2019 12:49 PM RECOVERY ENGINEER PAC Pharmacist Medication Plan Note: We were [...] patient who verbalized understanding. Reji Vazquez, ZAHIRA VERY ENGINEER * Kirti Olivas RN - 01/19/2019 11:30 AM RECOVERY ENGINEER PAC phone triage assessment completed with pt [...] understanding of instructions and declined a copy. VERY ENGINEER documented in this encounter H&P Notes * [...] 24 hours): POC Glucose (Download): 98 (02/08/19 9965) I have examined the patient, and there are no significant changes in their condi tion, from the previous H&P performed on 01/10/19. Maicol Marshall MD Pager [phone] ATTESTATION I personally performed the james portions of the E/M visit, discussed case with re sident and concur with resident documentation of history, physical exam, assessm ent, and treatment plan unless otherwise noted. Staff name: Hermila Durbin MD * Hermila Durbin MD - 01/10/2019 2:45 PM RECOVERY ENGINEER Date of Service: 01/10/2019 Subjective: History of [...] UNITS) performed by Hermila Durbin MD at [facility] OR/Periop ABDOMINAL AORTIC ANEURYSM REPAIR, OPEN 2017 [place] CYSTOURETHROSCOPY INJ CHEMODENERVATION BLADDER N/A 03/17/2017 CYSTOSCOPY WITH INTRAVESICAL BLADDER BOTOX INJECTIONS (200 UNITS) performed by Hermila Durbin MD at [facility] OR/Periop LEG AMPUTATION BELOW KNEE Right 08/20/2018 RIGHT BELOW KNEE AMPUTATION performed by Pradip Jaramillo MD at [facility] OR/Periop INCISION AND DRAINAGE Right 10/15/2018 INCISION [...] otherwise noted. Staff name: Hermila Durbin MD VERY ENGINEER documented in this encounter Miscellaneous Notes * [...] Specimen(s) Removed/Disposition: none Maicol Marshall MD Pager [phone] ATTESTATION I performed this procedure with a resident. Staff name: Hermila Durbin MD documented in this encounter Plan of Treatment Care Team Description Date Type Specialty Rishi Cartwright MD [address] [facility] Ortho/Med Pavilion Lvl [address] [place] [address] [phone] Mixed urge and stress incontinence 08/12/2019 Hospital Encounter Rishi Cartwright MD [address] [facility] Ortho/Med Pavilion Lvl [address] [place] [address] [phone] CYSTOURETHROSCOPY WITH INJECTION FOR CHEMODENERVATION OF THE [...] MG/DL MAIN LAB Specimen Performing Organization Address [facility] Phone Number MAIN LAB [address] [place] [address] * POC GLUCOSE (02/08/2019 11:21 AM CDT) Glucose, POC 98 70 - 100 MG/DL MAIN LAB Specimen Performing Organization Address [facility] Phone Number MAIN LAB [address] [place] [address] * TELEMETRY STRIPS-SCAN (02/08/2019 12:00 AM CDT) [...]
--- OUTSIDE RECORDS SUMMARY | 2019-06-30 18:06 | XMS REPORT | Encounter Summary ---
Author Author [facility] Organization [facility] Address Unknown Phone Unavailable Care Team Providers Care Safe And Vault Mechanic Name Role Phone Osvaldo Palafox Unavailable Hermila Durbin MD Unavailable Rishi Cartwright MD Unavailable Donell Haque PA-C Unavailable Lizet Parsons RN Unavailable Unavailable Kristofer Dowling MD Unavailable Unavailable Harvinder Jj MD PCP Slade Merino DO 4 Reason for Visit * Reason Comments Medication Question Encounter Details Care Team Description Date Type Department Hermila Durbin MD [address] Ortho/Med Pavilion Lvl [address] [place] [address] Medication Question 01/12/2019 Telephone [facility] [address] [place] [address] Social History Date Tobacco Use [...] - Brefina Kelly - 01/14/2019 1:54 PM ASSEMBLER AIRCRAFT POWER PLANT Patient is calling still having symptoms of [...] what else can I offer her ? MBLER AIRCRAFT POWER PLANT * Telephone Encounter - Cece Frances - 01/12/2019 4:27 PM ASSEMBLER AIRCRAFT POWER PLANT Pt called today because she wants to [...] dose is correct or not. Cece Real MBLER AIRCRAFT POWER PLANT documented in this encounter Plan of Treatment Care Team Description Date Type Specialty Rishi Cartwright MD [address] [facility]Med Pav[address] [place] [address] [phone] Mixed urge and stress incontinence 08/12/2019 Hospital Encounter Rishi Cartwright MD [address] [facility]/Med Pav[facility] [address] [place] [address] [phone] CYSTOURETHROSCOPY WITH INJECTION FOR CHEMODENERVATION OF THE BLADDER (BOTOX 200 UNITS) 08/12/2019 Surgery documented as of this encounter Visit Diagnoses Not on filedocumented in this encounter
--- OUTSIDE RECORDS SUMMARY | 2019-06-30 18:06 | XMS REPORT | Encounter Summary ---
Author Author [facility] Organization [facility] Address Unknown Phone Unavailable Care Team Providers Care Laser Engineer Name Role Phone Osvaldo Palafox Unavailable Hermila Durbin MD Unavailable Rishi Cartwright MD Unavailable Donell Haque PA-C Unavailable Lizet Parsons RN Unavailable Unavailable Kristofer Dowling MD Unavailable Unavailable Harvinder Jj MD PCP Slade Merino DO 4 Reason for Visit * Reason Comments Incontinence Encounter Details Care Team Description Date Type Department Hermila Durbin MD [address] Ortho/Med Pavilion Lvl [address] [place] [address] Mixed urge and stress incontinence (TRI) (Primary Dx) 01/10/2019 Office Visit [facility] [address] [place] [address] Social History Date Tobacco Use [...] Comments Vital Sign 157/77 01/10/2019 3:19 PM SENIOR RISK ANALYST Blood Pressure 83 01/10/2019 3:19 PM SENIOR RISK ANALYST Pulse - - Temperature - - Respiratory Rate - - Oxygen Saturation - - Inhaled Oxygen Concentration 84.8 kg (187 lb) 01/10/2019 3:19 PM SENIOR RISK ANALYST per pt Weight 170.2 cm (5' 7") 01/10/2019 3:19 PM SENIOR RISK ANALYST Height 29.29 01/10/2019 3:19 PM SENIOR RISK ANALYST Body Mass Index documented in this encounter [...] Instructions* Kelly Moser - 01/10/2019 2:45 PM SENIOR RISK ANALYST [facility] - Urology Pre-Operative Instructions Surgical Procedure: [...] such as ibuprofen (Advil, Motrin), naproxen (Aleve), Rachana-[place], Excedrin, Midol, celecoxib (Celebrex), diclofenac ([place] micky), diflunisal, etodolac, flurbiprofen, indomethacin, ketoprofen, ketorolac, [...] questions, please contact your provider's office at [phone] . For emergencies during evenings, nights, weekends, and holidays, contact [facility] street cleaning equipment operator and request they contact the on-call Urology Resident at [phone]. OR RISK ANALYST documented in this encounter Progress Notes * Hermila Durbin MD - 01/10/2019 2:45 PM SENIOR RISK ANALYST Date of Service: 01/10/2019 Subjective: History of [...] Chronic pain COPD (chronic obstructive pulmonary disease) ([facility]) Depression DM (diabetes mellitus) ([facility]) Dyslipidemia GERD (gastroesophageal reflux disease) Hayfever HTN (hypertension) Hypothyroidism IC (interstitial cystitis) Ischemic cardiomyopathy Mixed stress and urge urinary incontinence Myocardial infarction ([facility]) 2009 Neuropathy OAB (overactive bladder) On supplemental oxygen therapy 2L at night Seizure ([facility]) in high school Tobacco use Past [...] (200 UNITS) performed by Hermila gordillo MD [place] CYSTOURETHROSCOPY INJ CHEMODENERVATION BLADDER N/A 09/16/2016 CYSTOSCOPY BOTOX INJECTIONS (200 UNITS) performed by Hermila Durbin MD at [facility] OR/Periop ABDOMINAL AORTIC ANEURYSM REPAIR, OPEN 2017 [place] CYSTOURETHROSCOPY INJ CHEMODENERVATION BLADDER N/A 03/17/2017 CYSTOSCOPY WITH INTRAVESICAL BLADDER BOTOX INJECTIONS (200 UNITS) performed by Hermila Durbin MD at [facility] OR/Periop LEG AMPUTATION BELOW KNEE Right 08/20/2018 RIGHT BELOW KNEE AMPUTATION performed by Pradip Jaramillo MD at [facility] OR/Periop INCISION AND DRAINAGE Right 10/15/2018 INCISION AND DRAINAGE POSTOPERATIVE WOUND INFECTION RIGHT BELOW THE KNEE AMPUTA TION STUMP WITH APPLICATION OF WOUND VAC performed by Pradip Jaramillo MD at [facility] O R/Periop CARPAL TUNNEL RELEASE Bilateral [...] otherwise noted. Staff name: Hermila Durbin MD OR RISK ANALYST documented in this encounter Plan of Treatment Care Team Description Date Type Specialty Rishi Cartwright MD [address] [facility] Ortho/Med Pavilion L[address] [place] [address] [phone] Mixed urge and stress incontinence 08/12/2019 Hospital Encounter Rishi Cartwright MD [address] Ortho/Med Pavilion [address] [place] [address] [phone] CYSTOURETHROSCOPY WITH INJECTION FOR CHEMODENERVATION OF THE BLADDER (BOTOX 200 UNITS) 08/12/2019 Surgery documented as of this encounter Procedures Comments Procedure Name Priority Date/Time Associated Diagnosis POC URINE DIPSTICK MANUAL Routine 01/10/2019 Mixed urge and stress READ incontinence (TRI) documented in this encounter Results * CULTURE-URINE W/SENSITIVITY (01/10/2019 3:12 PM SENIOR RISK ANALYST) Battery Name URINE CULTURE [facility] Specimen URINE, CLEAN CATCH [facility] Description Special NONE [facility] Requests Culture 3 OR MORE ORGANISMS [facility] PRESENT,INDICATING CONTAMINATION. PLEASE SUBMIT ANOTHER SPECIMEN. Report Status FINAL [facility] 01/11/2019 Specimen Urine - Urine,Clean Catch Performing Organization Address City/State/Zipcode Phone Number MAIN LAB [address] [place] [address] * POC URINE DIPSTICK MANUAL READ (01/10/2019) Urine Glucose NEG IN CLINIC POC Urine Bilirubin NEG IN CLINIC POC Urine Ketone NEG IN CLINIC POC Urine Specific 1.030 IN CLINIC [place] POC Urine Blood POC NEG IN CLINIC [...] Ross Olson MD - 01/10/2019 4:18 PM SENIOR RISK ANALYST Associated Problem(s): Mixed urge and stress incontinence (TRI) 53 year old female with PMH of mixed incontinence managed with botox and oxybuty mia 10mg XL with return of symptoms Plan: - Schedule for botox 02/08/19 200U - Oxybutynin 10mg XL - Urine culture today - Empiric bactrim started OR RISK ANALYST documented in this encounter
--- OUTSIDE RECORDS SUMMARY | 2019-06-30 18:06 | XMS REPORT | Encounter Summary ---
Author Author [facility] Organization [facility] Address Unknown Phone Unavailable Care Team Providers Care Interactive Media Director Name Role Phone Osvaldo Palafox Unavailable Hermila Durbin MD Unavailable Rishi Cartwright MD Unavailable Donell Haque PA-C Unavailable Lizet Parsons RN Unavailable Unavailable Kristofer Dowling MD Unavailable Unavailable Harvinder Jj MD PCP Slade Merino DO 4 Encounter Details Care Team Description Date Type Department Hermila Durbin MD [address] [facility] [address] [place] [address] [phone] Mixed incontinence 01/10/2019 [facility] [address] [address] Social History Date Tobacco Use Types Packs/Day [...] Date Type Specialty Rishi Cartwright MD [address] [facility] [address] [place] [address] [phone] Mixed urge and stress incontinence 08/12/2019 Hospital Encounter Rishi Cartwright MD [address] [facility] [address] [place], [place] [id number] CYSTOURETHROSCOPY WITH INJECTION FOR CHEMODENERVATION OF THE BLADDER (BOTOX 200 UNITS) 08/12/2019 Surgery documented as of this encounter Procedures Comments Procedure Name Priority Date/Time Associated Diagnosis CULTURE-URINE Routine 01/10/2019 Mixed urge and stress W/SENSITIVITY 3:12 PM PREFLIGHT INSPECTOR incontinence (TRI) documented in this encounter Results * CULTURE-URINE W/SENSITIVITY (01/10/2019 3:12 PM PREFLIGHT INSPECTOR) Battery Name URINE CULTURE [facility] Specimen URINE, CLEAN CATCH [facility] Description Special NONE MAIN LAB Requests Culture 3 OR MORE ORGANISMS [facility] PRESENT,INDICATING CONTAMINATION. PLEASE SUBMIT ANOTHER SPECIMEN. Report Status FINAL MAIN LAB 01/11/2019 Specimen Urine - Urine,Clean Catch Performing Organization Address City/State/Zipcode Phone Number MAIN LAB [address] [place] [address] documented in this encounter Visit Diagnoses Diagnosis Mixed urge and stress incontinence (TRI) Mixed incontinence urge and stress (male)(female) documented in this encounter
--- OUTSIDE RECORDS SUMMARY | 2019-06-30 18:06 | XMS REPORT | Encounter Summary ---
Author Author [facility] Organization [facility] Address Unknown Phone Unavailable Care Team Providers Care Regulatory Affairs Spec Name Role Phone AnaliaOsvaldo echols Unavailable Hermila Durbin MD Unavailable Rishi Cartwright MD Unavailable Donell Haque PA-C Unavailable Lizet Parsons RN Unavailable Unavailable Kristofer Dowling MD Unavailable Unavailable Harvinder Jj MD PCP Slade Merino DO 4 Reason for Visit * Reason Comments General Question Encounter Details Care Team Description Date Type Department Rishi Cartwright MD [address] [facility] [address] [place] [address] General Question 01/14/2019 Telephone [facility] [address] [place] [address] Social History Date Tobacco Use [...] Simon Moreland MA - 01/14/2019 2:21 PM BAND SAW RUNNER Pt called, asking us to call her [...] deli vering it soon. Pt verbalized understanding. SAW RUNNER documented in this encounter Plan of Treatment Care Team Description Date Type Specialty Rishi Cartwright MD [address] [facility] [address] [place] [address] [phone] Mixed urge and stress incontinence 08/12/2019 Hospital Encounter Rishi Cartwright MD [address] [facility] [address] [place] [address] CYSTOURETHROSCOPY WITH INJECTION FOR CHEMODENERVATION OF THE BLADDER (BOTOX 200 UNITS) 08/12/2019 Surgery documented as of this encounter Visit Diagnoses Not on filedocumented in this encounter
--- OUTSIDE RECORDS SUMMARY | 2019-06-30 18:06 | XMS REPORT | Encounter Summary ---
Author Author [facility] Organization [facility] Address Unknown Phone Unavailable Care Team Providers Care Power House Control Room Operator Name Role Phone SarbjitmaryanneOsvaldo DO Unavailable Hermila Durbin MD Unavailable Rishi Cartwright MD Unavailable Donell Haque PA-C Unavailable Lizet Parsons RN Unavailable Unavailable Kristofer Dowling MD Unavailable Unavailable Harvinder Jj MD PCP Slade Merino DO 4 Encounter Details Care Team Description Date Type Department Ross MD [address] [place] [address] Urge incontinence (Primary Dx) 01/10/2019 Prep for Case [facility] [address] [facility] [address] [place] [address] Social History Date Tobacco Use [...] Date Type Specialty Rishi Cartwright MD [address] [facility] [address] [place] [address] [phone] Mixed urge and stress incontinence 08/12/2019 Hospital Encounter Rishi Cartwright MD [address] [facility] [address] [place] [address] [phone] CYSTOURETHROSCOPY WITH INJECTION FOR CHEMODENERVATION OF THE BLADDER (BOTOX 200 UNITS) 08/12/2019 Surgery documented as of this encounter Visit Diagnoses Diagnosis Urge incontinence - Primary documented in this encounter
--- OUTSIDE RECORDS SUMMARY | 2019-06-30 18:07 | XMS REPORT ---
Author Author CAROLYN QUE [facility] Address [address] [place] [address] Care Team Providers Care Radiotelegraphist Name Role Phone CAROLYNGIOVANNY CHRISTIANSONHANY Unavailable PROBLEMS Type Condition ICD9-CM Code NLB30-WI Code Onset Dates Condition Status SNOMED Code Problem Acquired hypothyroidism E03.9 Active 211787109 Problem Mixed hyperlipidemia E78.2 Active 288836726 Problem Gastroesophageal reflux disease, esophagitis presence not specified K21.9 Active 202803535 Problem Essential hypertension I10 Active 01416665 Problem Lumbago with sciatica, right side M54.41 Active [id number] Problem Lumbago with sciatica, left side M54.42 Active 822118124 Problem Chronic obstructive pulmonary disease, unspecified COPD type J44.9 Active 76837547 Problem Other chronic pain G89.29 Active 75641417 Problem Seizures R56.9 Active 06104075 Problem Iron deficiency anemia due to chronic blood loss D50.0 Active 749169500 Problem Seasonal allergies J30.2 Active 608516478 Problem Generalized anxiety disorder F41.1 Active 68169892 Problem DM neuro manif type II E11.49 Active 02284463 Problem Reactive depression F32.9 Active 60719087 Problem Urinary incontinence in female R32 Active 139207599 Problem Cigarette nicotine dependence without complication F17.210 Active 29126118 Problem Prediabetes R73.03 Active 168790250 Problem Sinusitis J32.9 Active 76668541 Problem Chronic pain G89.29 Active 96803306 Problem Adjustment disorder with disturbance of emotion F43.29 Active 48308157 Problem Major depressive disorder, recurrent, moderate F33.1 Active 800707718 ALLERGIES No Information ENCOUNTERS Encounter Location Date Diagnosis [facility] [address] [facility] [id number] [address] Jun, [facility] [address] [place] [address] May, [facility] [address] [place] [address] May, [facility] [address] [place] [id number] [place] [address] May, [facility] [address] [id number] [place] [address] May, [facility] [address] [id number] [place] [address] May, Encounter for immunization Z23 [facility] [address] [id number] [place] [address] May, UTI (urinary tract infection) N39.0 and Urinary incontinence in female R32 [place] [address] [place] [id number] [place] [address] May, Major depressive disorder, recurrent, moderate F33.1 and Generalized anxiety disorder F41.1 [facility] [address] [place] [address] May, Bronchitis J40 [place] [address] [place] [id number] [place] [address] May, Major depressive disorder, recurrent, moderate F33.1 and Adjustment disorder with disturbance of emotion F43.29 [place] [address] [place] [address] Apr, [facility] [address] [place] [id number] [place] [address] Apr, Type 2 diabetes mellitus with hyperglycemia E11.65 [place] [address] [place] [id number] [place] [address] 17 Apr, 2019 Type 2 diabetes mellitus with hyperglycemia E11.65 [facility] [address] [place] [address] 14 Apr, 2019 Major depressive disorder, recurrent, moderate F33.1 and Adjustment disorder with disturbance of emotion F43.29 [place] [address] [place] [id number] [place] [address] Apr, [place] [address] [address] Apr, Diarrhea, unspecified type R19.7 [place] [address] [address] Apr, Low back pain M54.5 ; Other chronic pain G89.29 and Anemia, unspecified type D64.9 [place] [address] [address] Apr, [place] [address] [address] Apr, Diarrhea, unspecified type R19.7 and Lumbar radiculopathy, chronic M54.16 [facility] [place] [address] [address] March, Non-intractable vomiting with nausea, unspecified vomiting type R11.2 and Muscle cramps R25.2 [place] [address] [address] March, [place] [address] [place] [id number] [place] [address] March, Other chronic pain G89.29 [place] [address] [address] March, Type 2 diabetes mellitus with hyperglycemia E11.65 ; Flank pain R10.9 ; Acute cystitis without hematuria N30.00 ; Chronic obstructive pulmonary disease, unspecified COPD type J44.9 and Moderate episode of recurrent major depressive disorder F33.1 [place] [address] [place] [id number] [place] [address] March, [facility] [address] [address] March, Wheezing R06.2 and Viral upper respiratory tract infection J06.9 [facility] [address] [address] Feb, [facility] [address] [id number] [place] [address] Feb, [facility] [address] [address] Jan, [facility] [address] [place] [address] Jan, Acute cystitis with hematuria N30.01 and Dysuria R30.0 [facility] [address] [id number] [place] [address] Jan, [facility] [id number] [place] [address] Dec, [facility] [id number] [place] [address] Dec, [facility] [address] [address] Dec, [facility] [address] [place] [address] Dec, [facility] [address] [address] Dec, Routine adult health maintenance Z00.00 ; Chronic obstructive pulmonary disease, unspecified COPD type J44.9 and Encounter for immunization Z23 [facility] [address] [address] Nov, [facility] [address] [place] [id number] [place] [address] Nov, UTI (urinary tract infection) N39.0 and Other chronic pain G89.29 [facility] [address] [place] [id number] [place] [address] Nov, [facility] [address] [address] Nov, [facility] [address] [place] [address] Nov, Painful urination R30.9 and UTI (urinary tract infection) N39.0 [facility] [address] [place] [address] Nov, [facility] [address] [place] [address] Nov, UTI (urinary tract infection) N39.0 [place] [address] [place] [id number] [place] [address] Nov, Dysuria R30.0 ; UTI (urinary tract infection) N39.0 and Chronic pain G89.29 [place] [address] [place] [address] Nov, [facility] [address] [place] [address] 20 Oct, 2018 Cough R05 [place] [address] [place] [id number] [place] [address] 14 Oct, 2018 Sinusitis J32.9 [place] [address] [place] [address] Oct, [place] [address] [place] [address] 03 Oct, 2018 UTI (urinary tract infection) N39.0 and URI (upper respiratory infection) J06.9 [place] [address] [place] [address] 14 Sep, 2018 Pain in thoracic spine M54.6 [place] [address] [place] [address] 09 Sep, 2018 Type 2 diabetes mellitus with hyperglycemia E11.65 [place] [address] [place] [id number] [place] [address] Sep, Chronic obstructive pulmonary disease, unspecified COPD type J44.9 ; Abrasion of right ear canal, initial encounter S00.411A ; Cigarette nicotine dependence without complication F17.210 ; Right leg pain M79.604 and Seasonal allergies J30.2 [place] [address] [place] [id number] [place] [address] Aug, [place] [address] [address] Aug, [place] [address] [place] [id number] [place] [address] Aug, Pain in thoracic spine M54.6 [place] [address] [address] Aug, [place] [address] [address] Aug, Chronic obstructive pulmonary disease, unspecified COPD type J44.9 ; Complete amputation of right foot, 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 ; Cigarette nicotine dependence without complication F17.210 and BMI 40.0-44.9, adult Z68.41 [place] [address] [place] [id number] [place] [address] Jul, [place] [address] [place] [id number] [place] [address] Jul, [place] [address] [address] Jul, Onychomycosis B35.1 ; Onychocryptosis L60.0 and DM neuro manif type II E11.49 [place] [address] [place] [id number] [place] [address] Jun, Pain in thoracic spine M54.6 [place] [address] [place] [id number] [place] [address] Jun, Iron deficiency anemia due to chronic blood loss D50.0 and Hematochezia K92.1 [facility] [address] [place] [id number] [place] [address] Jun, Gastroenteritis K52.9 and Abnormal RBC indices R71.8 [facility] [address] [place] [id number] [place] [address] Jun, [facility] [address] [address] Jun, Chest congestion R09.89 and Seizures R56.9 [facility] [address] [address] May, Pain in thoracic spine M54.6 [facility] [address] [address] May, [facility] [address] [address] May, [facility] [address] [address] May, [facility] [address] [address] May, Acute non-recurrent frontal sinusitis J01.10 and Dermatitis L30.9 [facility] [address] [place] [id number] [place] [address] May, [facility] [address] [id number] [place] [address] May, Pain in thoracic spine M54.6 [facility] [address] [place] [id number] [place] [address] May, [facility] [address] [address] May, Acute nasopharyngitis J00 [facility] [address] [place] [id number] [place] [address] May, [facility] [address] [place] [address] May, [facility] [address] [address] Apr, [facility] [address] [address] Apr, [facility] [address] [address] Apr, [facility] [address] [address] Apr, [place] [address] [address] Apr, Pain in right ankle and joints of right foot M25.571 [place] [address] [address] Apr, [place] [address] [address] Apr, Bronchitis J40 ; Pain in right ankle and joints of right foot M25.571 ; Other chronic pain G89.29 ; Prediabetes R73.03 ; Chronic obstructive pulmonary disease, unspecified COPD type J44.9 and Cigarette nicotine dependence without complication F17.210 [facility] [address] [address] Apr, Seasonal allergic rhinitis, unspecified trigger J30.2 [place] [address] [address] 08 Apr, 2018 Onychomycosis B35.1 ; Onychocryptosis L60.0 and DM neuro manif type II E11.49 [place] [address] [address] Apr, Reactive depression F32.9 ; Thoracic myofascial strain, initial encounter S29.019A and Leg cramps R25.2 [facility] [address] [address] March, [place] [address] [place] [id number] [place] [address] March, Type 2 diabetes mellitus with hyperglycemia E11.65 [place] [address] [place] [id number] [place] [address] March, Reactive depression F32.9 [place] [address] [address] March, Pain in thoracic spine M54.6 and Other chronic pain G89.29 [place] [address] [address] Feb, [place] [address] [address] Jan, Reactive depression F32.9 ; Essential hypertension I10 ; Gastroesophageal reflux disease, esophagitis presence not specified K21.9 ; Lumbago with sciatica, left side M54.42 and Lumbago with sciatica, right side M54.41 [place] [address] [address] Jan, Reactive depression F32.9 and Pharyngoesophageal dysphagia R13.14 [place] [address] [place] [id number] [place] [address] Jan, [place] [address] [address] Jan, Encounter for immunization Z23 [place] [address] [place] [id number] [place] [address] Jan, Onychomycosis B35.1 and DM neuro manif type II E11.49 [place] [address] [address] Jan, [place] [address] [address] Jan, Prediabetes R73.03 [place] [address] [place] [id number] [place] [address] Dec, [facility] [address] [address] Dec, Essential hypertension I10 ; Mixed hyperlipidemia E78.2 ; Acquired hypothyroidism E03.9 ; Reactive depression F32.9 and Prediabetes R73.03 [facility] [address] [address] Dec, [facility] [address] [address] Dec, [place] [address] [address] Dec, DM neuro manif type II E11.49 [facility] [address] [id number] [place] [address] Dec, Bruise T14.8XXA ; Type 2 diabetes mellitus with hyperglycemia E11.65 and prison current use of insulin Z79.4 [place] [address] [place] [id number] [place] [address] Oct, [place] [address] [place] [id number] [place] [address] March, Onychomycosis B35.1 and DM neuro manif type II E11.49 [place] [address] [place] [id number] [place] [address] Jun, [place] [address] [place] [id number] [place] [address] Jun, [place] [address] [address] Jun, COPD with acute exacerbation 491.21 [place] [address] [place] [id number] [place] [address] Apr, [facility] [address] [address] 14 Feb, 2015 [facility] [place] [facility] [address] [id number] [place] [address] 13 Feb, 2015 [facility] [place] [facility] [address] [id number] [place] [address] 26 Jan, 2015 [facility] [place] [facility] [address] [id number] [place] [address] Jan, [facility] [place] [facility] [address] [id number] [place] [address] Jan, [facility] [place] [facility] [address] [id number] [place] [address] Jan, [facility] [place] [facility] [address] [id number] [place] [address] Jan, [facility] [place] [facility] [address] [id number] [place] [address] Jan, [facility] [place] [facility] [address] [id number] [place] [address] Jan, [facility] [place] [facility] [address] [id number] [place] [address] Jan, [facility] [place] [facility] [address] [id number] [place] [address] Jan, [facility] [place] [facility] [address] [id number] [place] [address] 19 Jan, 2015 [facility] [place] [facility] [address] [id number] [place] [address] 19 Jan, 2015 [facility] [place] [facility] [address] [id number] [place] [address] 18 Jan, 2015 [facility] [place] [facility] [address] [id number] [place] [address] 18 Jan, 2015 [facility] [place] [facility] [address] [id number] [place] [address] 16 Jan, 2015 [facility] [place] [facility] [address] [id number] [place] [address] 16 Jan, 2014 [facility] [place] [facility] [address] [id number] [place] [address] 16 Jan, 2015 [facility] [place] [facility] [address] [id number] [place] [address] 16 Jan, 2014 [facility] [place] [facility] [address] [id number] [place] [address] 15 Jan, 2014 [facility] [place] [facility] [address] [id number] [place] [address] 13 Jan, 2014 [facility] [place] [facility] [address] [id number] [place] [address] 13 Jan, 2014 [facility] [place] [facility] [address] [id number] [place] [address] 13 Jan, 2014 [facility] [place] [facility] [address] [id number] [place] [address] 13 Jan, 2014 [facility] [place] [facility] [address] [id number] [place] [address] 12 Jan, 2015 [facility] [place] [facility] [address] [id number] [place] [address] 04 Jan, 2015 [facility] [place] [facility] [address] [id number] [place] [address] 04 Jan, 2015 [facility] [place] [facility] [address] [id number] [place] [address] 24 Dec, 2014 [facility] [place] [facility] [address] [id number] [place] [address] 24 Dec, 2014 [facility] [place] [facility] [address] [id number] [place] [address] 24 Dec, 2014 [facility] [place] [facility] [address] [id number] [place] [address] 24 Dec, 2014 [facility] [place] [facility] [address] [id number] [place] [address] Dec, 2014 [facility] [place] [facility] [address] [id number] [place] [address] Dec, [facility] [place] [facility] [address] [id number] [place] [address] Dec, 2014 [facility] [place] [facility] [address] [id number] [place] [address] Dec, 2014 [facility] [place] [facility] [address] [id number] [place] [address] Dec, 2014 [facility] [place] [facility] [address] [id number] [place] [address] Dec, 2014 [facility] [place] [facility] [address] [facility] [id number] [place] [address] 16 Dec, 2014 [facility] [place] [facility] [address] [facility] [id number] [place] [address] 16 Dec, 2014 [facility] [place] [facility] [address] [id number] [place] [address] Nov, [facility] [place] [facility] [address] [id number] [place] [address] Nov, [facility] [place] [facility] [address] [facility] [id number] [place] [address] Nov, [facility] [place] [facility] [address] [facility] [id number] [place] [address] Nov, [facility] [place] [facility] [address] [id number] [address] Nov, [facility] [place] [facility] [address] [id number], [place] [address] Nov, [facility] [place] [facility] [address] [facility] [id number], [place] [address] Nov, [facility] [place] [facility] [address] [facility] [id number], [place] [address] Nov, [facility] [place] [facility] [address] [id number] [place] [address] Nov, [facility] [place] [facility] [address] [id number] [place] [address] Nov, [facility] [place] [facility] [address] [id number] [place] [address] Nov, [facility] [place] [facility] [address] [id number] [place] [address] Nov, [facility] [place] [facility] [address] [id number] [place] [address] Oct, [facility] [place] [facility] [address] [id number] [place] [address] Oct, [facility] [place] [facility] [address] [id number] [place] [address] Oct, [facility] [place] [facility] [address] [id number] [place] [address] Oct, [facility] [place] [facility] [address] [id number] [place] [address] Oct, [facility] [place] [facility] [address] [id number] [place] [address] Oct, [facility] [place] [facility] [address] [id number] [place] [address] Oct, [facility] [place] [facility] [address] [id number] [place] [address] Oct, [facility] [place] [facility] [address] [id number] [place] [address] Oct, [facility] [place] [facility] [address] [id number] [place] [address] 17 Oct, 2014 [facility] [place] [facility] [address] [id number] [place] [address] 16 Oct, 2014 [facility] [place] [facility] [address] [id number] [place] [address] 16 Oct, 2014 [facility] [place] [facility] [address] [id number] [place] [address] Oct, [facility] [place] [facility] [address] [id number] [place] [address] Oct, [facility] [place] [facility] [address] [facility] [id number] [place] [address] Oct, [facility] [place] [facility] [address] [id number] [place] [address] Sep, [facility] [place] [facility] [address] [id number] [place] [address] Sep, [facility] [place] [facility] [address] [id number] [place] [address] Sep, [facility] [place] [facility] [address] [id number] [place] [address] Sep, [facility] [place] [facility] [address] [id number] [place] [address] Aug, [facility] [place] [facility] [address] [id number] [place] [address] Aug, [facility] [place] [facility] [address] [id number] [place] [address] Aug, [facility] [place] [facility] [address] [id number], [place] [address] Aug, [facility] [place] [facility] [address] [id number], [place] [address] Aug, [facility] [place] [facility] [address] [id number] [place] [address] Aug, [facility] [place] [facility] [address] [id number], [place] [address] Jul, [facility] [place] [facility] [address] [id number] [place] [address] Jul, [facility] [place] [facility] [address] [id number] [place] [address] 15 Jul, 2014 [facility] [place] [facility] [address] [id number] [place] [address] 15 Jul, 2014 [facility] [place] [facility] [address] [id number] [place] [address] 08 Jul, 2014 [facility] [place] [facility] [address] [id number] [place] [address] Jul, [facility] [place] [facility] [address] [id number] [place] [address] Jun, [facility] [place] [facility] [address] [id number] [place] [address] Jun, [facility] [place] [facility] [address] [id number] [place] [address] Jun, [facility] [place] [facility] [address] [id number] [place] [address] Jun, [facility] [place] [facility] [address] [id number] [place] [address] Jun, [facility] [place] [facility] [address] [id number] [place] [address] Jun, [facility] [place] [facility] [address] [id number] [place] [place] [address] Jun, [facility] [place] [facility] [address] [id number] [place] [address] May, [facility] [place] [facility] [address] [id number] [place] [address] May, [facility] [place] [facility] [address] [id number] [place] [address] May, [facility] [place] [facility] [address] [id number] [place] [address] May, [facility] [place] [facility] [address] [id number] [place] [address] May, [facility] [place] [facility] [address] [id number] [place] [address] May, 2013 [facility] [place] [facility] [address] [id number] [place] [address] May, [facility] [place] [facility] [address] [id number] [place] [address] May, 2013 [facility] [place] [facility] [address] [id number] [place] [address] May, [facility] [place] [facility] [address] [id number] [place] [address] May, [facility] [place] [facility] [address] [id number] [place] [address] May, [facility] [place] [facility] [address] [id number] [place] [address] May, [facility] [place] [facility] [address] [id number] [place] [address] Apr, [facility] [place] [facility] [address] [id number] [place] [address] Apr, [facility] [place] [facility] [address] [id number] [place] [address] Apr, [facility] [place] [facility] [address] [id number] [place] [address] Apr, [facility] [place] [facility] [address] [id number] [place] [address] Apr, [facility] [place] [facility] [address] [id number] [place] [address] Apr, [facility] [place] [facility] [address] [id number] [place] [address] Apr, [facility] [place] [facility] [address] [id number] [place] [address] Apr, [facility] [place] [facility] [address] [id number] [place] [address] Apr, [facility] [place] [facility] [address] [id number] [place] [address] Apr, [facility] [place] [facility] [address] [id number] [place] [address] March, [facility] [place] [facility] [address] [id number] [place] [address] March, [facility] [place] [facility] [address] [id number] [place] [address] March, [facility] [place] [facility] [address] [id number] [place] [address] March, [facility] [place] [facility] [address] [id number] [place] [address] March, [facility] [place] [facility] [address] [id number] [place] [address] March, [facility] [place] [facility] [address] [id number] [place] [address] Feb, [facility] [place] [facility] [address] [id number] [place] [address] Feb, [facility] [place] [facility] [address] [id number] [place] [address] Feb, [facility] [place] [facility] [address] [id number] [place] [address] Feb, [facility] [place] [facility] [address] [id number] [place] [address] Feb, [facility] [place] [facility] [address] [id number] [place] [address] Feb, [facility] [place] [facility] [address] [id number] [place] [address] Feb, [facility] [place] [facility] [address] [id number] [place] [address] Feb, [facility] [place] [facility] [address] [id number] [place] [address] Feb, [facility] [place] [facility] [address] [id number] [place] [address] Feb, [facility] [place] [facility] [address] [id number] [place] [address] Jan, [facility] [place] [facility] [address] [id number] [place] [address] Jan, [facility] [place] [facility] [address] [id number] [place] [address] Jan, [facility] [place] [facility] [address] [id number] [place] [address] Jan, [facility] [place] [facility] [address] [id number] [place] [address] Jan, [facility] [place] [facility] [address] [id number] [place] [address] Jan, [facility] [place] [facility] [address] [id number] [place] [address] Jan, [facility] [place] [facility] [address] [id number] [place] [address] Jan, [facility] [place] [facility] [address] [id number] [place] [address] Dec, [facility] [place] [facility] [address] [id number] [place] [address] Dec, [facility] [place] [facility] [address] [id number] [place] [address] Dec, [facility] [place] [facility] [address] [id number] [place] [address] Dec, [facility] [place] [facility] [address] [id number] [place] [address] Dec, [facility] [place] [facility] [address] [id number], [place] [address] Dec, [facility] [address] [id number] [place] [address] Dec, [facility] [place] [facility] [address] [id number] [place] [address] Dec, [facility] [place] [facility] [address] [id number] [place] [address] Nov, [facility] [place] [facility] [address] [id number] [place] [address] Nov, [facility] [place] [facility] [address] [id number] [place] [address] Nov, [facility] [place] [facility] [address] [id number] [place] [address] Nov, [facility] [place] [facility] [address] [id number] [place] [address] Nov, [facility] [place] [facility] [address] [id number] [place] [address] Nov, [facility] [place] [facility] [address] [id number] [place] [address] Nov, [facility] [place] [facility] [address] [id number] [place] [address] Nov, [facility] [place] [facility] [address] [id number], [place] [address] Nov, [facility] [place] [facility] [address] [id number] [place] [address] Nov, [facility] [place] [facility] [address] [id number] [place] [address] Nov, [facility] [place] [facility] [address] [id number] [place] [address] Oct, [facility] [place] [facility] [address] [id number] [place] [address] Oct, [facility] [place] [facility] [address] [id number] [place] [address] Oct, [facility] [place] [facility] [address] [id number] [place] [address] Oct, [facility] [place] [facility] [address] [id number] [place] [address] Sep, [facility] [place] [facility] [address] [id number] [place] [address] Sep, [facility] [place] [facility] [address] [id number] [place] [address] Sep, [facility] [place] [facility] [address] [id number] [place] [address] Sep, [facility] [place] [facility] [address] [id number] [place] [address] Aug, [facility] [place] [facility] [address] [id number] [place] [address] Aug, [facility] [place] [facility] [address] [id number] [place] [address] Aug, [facility] [place] [facility] [address] [id number] [place] [address] Aug, [facility] [place] [facility] [address] [id number] [place] [address] Aug, [facility] [place] [facility] [address] [id number] [place] [address] Aug, [facility] [place] [facility] [address] [id number] [place] [address] Aug, [facility] [place] [facility] [address] [id number] [place] [address] Aug, [facility] [place] [facility] [address] [id number] [place] [address] Jul, [facility] [place] [facility] [address] [id number] [place] [address] Jul, [facility] [place] [facility] [address] [id number] [place] [address] 26 Sep, 2012 [facility] [place] [facility] [address] [id number] [place] [address] 24 Sep, 2012 [facility] [place] [facility] [address] [id number] [place] [address] 24 Jul, 2012 [facility] [place] [facility] [address] [id number] [place] [address] 23 Sep, 2012 [facility] [place] [facility] [address] [id number] [place] [address] 19 Sep, 2012 [facility] [place] [facility] [address] [id number] [place] [address] 18 Jul, 2012 [facility] [place] [facility] [address] [id number] [place] [address] 17 Jul, 2012 [facility] [place] [facility] [address] [id number] [place] [address] 16 Jul, 2012 [facility] [place] [facility] [address] [id number] [place] [address] 13 Jul, 2012 [facility] [place] [facility] [address] [id number] [place] [address] 13 Jul, 2012 [facility] [place] [facility] [address] [id number] [place] [address] 12 Jul, 2012 [facility] [place] [facility] [address] [id number], [place] [address] 11 Jul, 2012 [facility] [place] [facility] [address] [id number] [place] [address] 04 Jul, 2012 [facility] [place] [facility] [address] [id number] [place] [address] 30 Jun, 2013 [facility] [place] [facility] [address] [id number] [place] [address] 20 Jun, 2013 [facility] [place] [facility] [address] [id number] [place] [address] Jun, [facility] [address] [id number] [place] [address] May, [facility] [place] [facility] [address] [id number] [place] [address] May, [facility] [place] [facility] [address] [id number] [place] [address] May, [facility] [place] [facility] [address] [id number] [place] [address] May, [facility] [place] [facility] [address] [id number] [place] [address] Apr, [facility] [place] [facility] [address] [id number] [place] [address] Apr, [facility] [address] [id number] [place] [address] Apr, [facility] [place] [facility] [address] [id number] [place] [address] Apr, [facility] [place] [facility] [address] [id number] [place] [address] March, [facility] [place] [facility] [address] [id number] [place] [address] March, [facility] [place] [facility] [address] [id number] [place] [address] March, [facility] [place] [facility] [address] [id number] [place] [address] Feb, [facility] [place] [facility] [address] [id number] [place] [address] Feb, [facility] [place] [facility] [address] [id number] [place] [address] Jan, [facility] [place] [facility] [address] [id number] [place] [address] Jan, [facility] [place] [facility] [address] [id number] [place] [address] Jan, [facility] [place] [facility] [address] [id number] [place] [address] Jan, [facility] [place] [facility] [address] [id number] [place] [address] Jan, [facility] [place] [facility] [address] [id number] [place] [address] Dec, [facility] [place] [facility] [address] [id number] [place] [address] Dec, [facility] [place] [facility] [address] [id number] [place] [address] Dec, [facility] [place] [facility] [address] [id number] [place] [address] Dec, [facility] [place] [facility] [address] [id number] [place] [address] Dec, [facility] [place] [facility] [address] [id number] [place] [address] Dec, [facility] [place] [facility] [address] [id number] [place] [address] Dec, [facility] [place] [facility] [address] [id number] [place] [address] Dec, [facility] [place] [facility] [address] [id number] [place] [address] Nov, [facility] [place] [facility] [address] [id number] [place] [address] Nov, [facility] [place] [facility] [address] [id number] [place] [address] Nov, [facility] [place] [facility] [address] [id number] [place] [address] Nov, [facility] [place] [facility] [address] [id number] [place] [address] Nov, [facility] [place] [facility] [address] [id number] [place] [address] Nov, [facility] [place] [facility] [address] [id number] [place] [address] Nov, [facility] [place] [facility] [address] [id number] [place] [address] Oct, [facility] [place] [facility] [address] [id number] [place] [address] Oct, [facility] [place] [facility] [address] [id number] [place] [address] Oct, [facility] [place] [facility] [address] [id number] [place] [address] Oct, [facility] [place] [facility] [address] [id number] [place] [address] Oct, [facility] [place] [facility] [address] [id number] [place] [address] Oct, [facility] [place] [facility] [address] [id number] [place] [address] Oct, [facility] [place] [facility] [address] [id number] [place] [address] Oct, [facility] [place] [facility] [address] [id number] [place] [address] Sep, [facility] [place] [facility] [address] [id number] [place] [address] Sep, [facility] [place] [facility] [address] [id number] [place] [address] Sep, [facility] [place] [facility] [address] [id number] [place] [address] Sep, [facility] [place] [facility] [address] [id number] [place] [address] Sep, [facility] [place] [facility] [address] [id number] [place] [address] Sep, [facility] [place] [facility] [address] [id number] [place] [address] Sep, [facility] [place] [facility] [address] [id number] [place] [address] Sep, [facility] [place] [facility] [address] [id number] [place] [address] Sep, [facility] [place] [facility] [address] [id number] [place] [address] Sep, [facility] [place] [facility] [address] [id number] [place] [address] Sep, [facility] [place] [facility] [address] [id number] [place] [address] Sep, [facility] [place] [facility] [address] [id number] [place] [address] Sep, [facility] [place] [facility] [address] [id number] [place] [address] Sep, [facility] [place] [facility] [address] [id number] [place] [address] Sep, [facility] [place] [facility] [address] [id number] [place] [address] Sep, [facility] [place] [facility] [address] [id number] [place] [address] Sep, [facility] [place] [facility] [address] [id number] [place] [address] Sep, [facility] [place] [facility] [address] [id number] [place] [address] Sep, [facility] [place] [facility] [address] [id number] [place] [address] Sep, [facility] [place] [facility] [address] [id number] [place] [address] 31 Aug, 2012 [facility] [place] [facility] [address] [id number] [place] [address] 31 Aug, 2012 [facility] [place] [facility] [address] [id number] [place] [address] 29 Aug, 2012 [facility] [place] [facility] [address] [id number] [place] [address] 27 Aug, 2012 [facility] [place] [facility] [address] [id number] [place] [address] 27 Aug, 2012 [facility] [place] [facility] [address] [id number] [place] [address] 18 Aug, 2012 [facility] [place] [facility] [address] [id number] [place] [address] 18 Aug, 2012 [facility] [place] [facility] [address] [id number] [place] [address] 17 Aug, 2012 [facility] [place] [facility] [address] [id number], [place] [address] 16 Aug, 2012 [facility] [place] [facility] [address] [id number], [place] [address] 16 Aug, 2012 [facility] [place] [facility] [address] [id number], [place] [address] 15 Aug, 2012 [facility] [place] [facility] [address] [id number], [place] [address] 09 Aug, 2012 [facility] [place] [facility] [address] [id number], [place] [address] 05 Aug, 2012 [facility] [place] [facility] [address] [id number], [place] [address] 05 Aug, 2012 [facility] [place] [facility] [address] [facility] [id number], [place] [address] 04 Aug, 2012 [facility] [place] [facility] [address] [id number], [place] [address] 14 Jul, 2012 [facility] [place] [facility] [address] [id number] [place] [address] 10 Jul, 2012 [facility] [address] [id number] [place] [address] Jun, [facility] [address] [id number] [place] [address] Jun, [facility] [address] [id number] [place] [address] May, [facility] [address] [id number] [place] [address] May, [facility] [address] [id number] [place] [address] May, [facility] [address] [id number] [place] [address] May, [facility] [address] [id number] [place] [address] May, [facility] [address] [id number] [place] [address] May, [facility] [address] [id number] [place] [address] Apr, [facility] [address] [id number] [place] [address] Apr, [facility] [address] [id number] [place] [address] March, [facility] [address] [id number] [place] [address] March, [facility] [address] [id number] [place] [address] March, [facility] [address] [id number] [place] [address] March, [facility] [address] [id number] [place] [address] March, [facility] [place] [facility] [address] [id number] [place] [address] March, [facility] [place] [facility] [address] [id number] [place] [address] Feb, [facility] [place] [facility] [address] [id number] [place] [address] Feb, [facility] [place] [facility] [address] [id number] [place] [address] Feb, [facility] [address] [id number] [place] [address] Feb, [facility] [place] [facility] [address] [id number] [place] [address] Feb, [facility] [address] [id number] [place] [address] Feb, [facility] [address] [id number] [place] [address] Feb, [facility] [place] [facility] [address] [id number] [place] [address] Feb, [facility] [place] [facility] [address] [id number] [place] [address] Feb, [facility] [place] [facility] [address] [id number] [place] [address] Jan, [facility] [place] [facility] [address] [id number] [place] [address] Jan, [facility] [place] [facility] [address] [id number] [place] [address] Jan, [facility] [place] [facility] [address] [id number] [place] [address] Jan, [facility] [place] [facility] [address] [id number] [place] [address] Jan, [facility] [place] [facility] [address] [id number], [place] [address] 20 Jan, 2012 [facility] [address] [id number] [place] [address] 14 Jan, 2012 [facility] [place] [facility] [address] [id number] [place] [address] 09 Jan, 2012 [facility] [place] [facility] [address] [facility] [id number] [place] [address] Jan, [facility] [place] [facility] [address] [id number] [place] [address] 08 Jan, 2012 [facility] [place] [facility] [address] [id number] [place] [address] 07 Jan, 2012 [facility] [place] [facility] [address] [facility] [id number] [place] [address] 06 Jan, 2012 [facility] [address] [id number] [address] Jan, [facility] [place] [facility] [address] [facility] [id number] [place] [address] Jan, [facility] [place] [facility] [address] [facility] [id number] [place] [address] 28 Dec, 2011 [facility] [place] [facility] [address] [facility] [id number] [place] [address] Dec, [facility] [place] [facility] [address] [facility] [id number] [place] [address] 25 Dec, 2011 [facility] [place] [facility] [address] [facility] [id number] [place] [address] 23 Dec, 2011 [facility] [place] [facility] [address] [facility] [id number] [place] [address] 16 Dec, 2011 [facility] [place] [facility] [address] [facility] [id number], [place] [address] 08 Dec, 2011 [facility] [place] [facility] [address] [facility] [id number], [place] [address] 08 Dec, 2011 [facility] [place] [facility] [address] [id number] [place] [address] Dec, [facility] [place] [facility] [address] [id number] [place] [address] Dec, [facility] [place] [facility] [address] [id number] [place] [address] Nov, [facility] [place] [facility] [address] [id number] [place] [address] Nov, [facility] [address] [id number] [place] [address] Nov, [facility] [place] [facility] [address] [id number] [place] [address] Nov, [facility] [address] [id number] [place] [address] Oct, [facility] [address] [id number] [place] [address] Oct, [facility] [place] [facility] [address] [id number] [place] [address] Oct, [facility] [address] [id number], [place] [address] Oct, [facility] [place] [facility] [address] [id number], [place] [address] Oct, [facility] [place] [facility] [address] [id number], [place] [address] Oct, [facility] [place] [facility] [address] [id number] [place] [address] Oct, [facility] [place] [facility] [address] [id number], [place] [address] Sep, [facility] [place] [facility] [address] [id number], [place] [address] Sep, [facility] [place] [facility] [address] [id number], [place] [address] Sep, [facility] [place] [facility] [address] [id number] [place] [address] Sep, [facility] [place] [facility] [address] [id number] [place] [address] Sep, [facility] [place] [facility] [address] [facility] [id number] [place] [address] Sep, [facility] [place] [facility] [address] [id number] [place] [address] Sep, [facility] [place] [facility] [address] [id number] [place] [address] Sep, [facility] [place] [facility] [address] [id number] [place] [address] Sep, [facility] [place] [facility] [address] [facility] [id number] [place] [address] Aug, [facility] [place] [facility] [address] [id number] [place] [address] Aug, [facility] [place] [facility] [address] [facility] [id number] [place] [address] Aug, [facility] [place] [facility] [address] [facility] [id number] [place] [address] May, [facility] [place] [facility] [address] [facility] [id number], [place] [address] Nov, [facility] [place] [facility] [address] [id number] [place] [address] Oct, [facility] [place] [facility] [address] [id number] [place] [address] Oct, [facility] [place] [facility] [address] [facility] [id number] [place] [address] Oct, [facility] [place] [facility] [address] [facility] [id number] [place] [address] Oct, [facility] [place] [facility] [address] [id number] [place] [address] Oct, [facility] [address] [id number] [place] [address] 03 Sep, 2010 [facility] [place] [facility] [address] [id number] [place] [address] 02 Sep, 2010 [facility] [address] [id number] [place] [address] 14 Jul, 2010 [facility] [place] [facility] [address] [id number] [place] [address] 31 Oct, 2009 [facility] [address] [id number] [place] [address] Oct, [facility] [place] [facility] [address] [facility] [id number] [place] [address] Oct, [facility] [place] [facility] [address] [id number] [place] [address] Oct, [facility] [address] [id number] [place] [address] 30 Sep, 2009 [facility] [place] [facility] [address] [facility] [id number] [place] [address] Sep, [facility] [address] [facility] [id number] [place] [address] Sep, [facility] [place] [facility] [address] [id number] [place] [address] Sep, [facility] [place] [facility] [address] [id number] [place] [address] Sep, [facility] [place] [facility] [address] [id number] [place] [id number] 11 Jul, 2009 [facility] [place] [facility] [address] [facility] [id number] [place] [address] Apr, [facility] [place] [facility] [address] [id number] [address] Dec, IMMUNIZATIONS No Known Immunizations SOCIAL HISTORY [...]
--- OUTSIDE RECORDS SUMMARY | 2019-06-30 18:08 | XMS REPORT ---
Author Author ETELVINA LEONARD [facility] Address [address] [place] [address] Care Team Providers Care Copy Center Associate Name Role Phone ETELVINA LEONARD Unavailable PROBLEMS Type Condition ICD9-CM Code ZRG58-MN Code Onset Dates Condition Status SNOMED Code Problem Acquired hypothyroidism E03.9 Active 486780273 Problem Mixed hyperlipidemia E78.2 Active 228783185 Problem Gastroesophageal reflux disease, esophagitis presence not specified K21.9 Active 583042465 Problem Essential hypertension I10 Active 68618386 Problem Lumbago with sciatica, right side M54.41 Active [id number] Problem Lumbago with sciatica, left side M54.42 Active 419534625 Problem Chronic obstructive pulmonary disease, unspecified COPD type J44.9 Active 24389769 Problem Other chronic pain G89.29 Active 89682087 Problem Seizures R56.9 Active 71639250 Problem Iron deficiency anemia due to chronic blood loss D50.0 Active 719072609 Problem Seasonal allergies J30.2 Active 081486011 Problem Generalized anxiety disorder F41.1 Active 32858810 Problem DM neuro manif type II E11.49 Active 67752460 Problem Reactive depression F32.9 Active 45465404 Problem Urinary incontinence in female R32 Active 792337875 Problem Cigarette nicotine dependence without complication F17.210 Active 83663616 Problem Prediabetes R73.03 Active 055860888 Problem Sinusitis J32.9 Active 58451371 Problem Chronic pain G89.29 Active 32625250 Problem Adjustment disorder with disturbance of emotion F43.29 Active 20852524 Problem Major depressive disorder, recurrent, moderate F33.1 Active 428325711 ALLERGIES No Information ENCOUNTERS Encounter Location Date Diagnosis [facility] [address] [facility] [id number] [address] Jun, [facility] [address] [place] [id number] [place] [address] May, [facility] [id number] [place] [address] May, [facility] [id number] [place] [address] May, [facility] [id number] [place] [address] May, [facility] [id number] [place] [address] May, Encounter for immunization Z23 [facility] [address] [address] May, UTI (urinary tract infection) N39.0 and Urinary incontinence in female R32 [place] [address] [place] [id number] [place] [address] May, Major depressive disorder, recurrent, moderate F33.1 and Generalized anxiety disorder F41.1 [facility] [id number] [place] [address] May, Bronchitis J40 [place] [address] [place] [id number] [place] [address] May, Major depressive disorder, recurrent, moderate F33.1 and Adjustment disorder with disturbance of emotion F43.29 [place] [address] [place] [id number] [place] [address] Apr, [place] [address] [place] [address] [id number] [place] [address] 18 Apr, 2019 Type 2 diabetes mellitus with hyperglycemia E11.65 [place] [address] [address] 17 Apr, 2019 Type 2 diabetes mellitus with hyperglycemia E11.65 [facility] [address] [place] [id number] [place] [address] 14 Apr, 2019 Major depressive disorder, recurrent, moderate F33.1 and Adjustment disorder with disturbance of emotion F43.29 [place] [address] [place] [id number] [place] [address] Apr, [place] [address] [address] Apr, Diarrhea, unspecified type R19.7 [place] [address] [address] Apr, Low back pain M54.5 ; Other chronic pain G89.29 and Anemia, unspecified type D64.9 [place] [address] [address] Apr, [place] [address] [address] Apr, Diarrhea, unspecified type R19.7 and Lumbar radiculopathy, chronic M54.16 [facility] [place] [address] [address] March, Non-intractable vomiting with nausea, unspecified vomiting type R11.2 and Muscle cramps R25.2 [place] [address] [address] March, [place] [address] [address] March, Other chronic pain G89.29 [place] [address] [address] March, Type 2 diabetes mellitus with hyperglycemia E11.65 ; Flank pain R10.9 ; Acute cystitis without hematuria N30.00 ; Chronic obstructive pulmonary disease, unspecified COPD type J44.9 and Moderate episode of recurrent major depressive disorder F33.1 [place] [address] [place] [id number] [place] [address] March, [facility] [address] [address] March, Wheezing R06.2 and Viral upper respiratory tract infection J06.9 [facility] [address] [address] Feb, [facility] [id number] [place] [address] Feb, [facility] [id number] [place] [address] Jan, [facility] [id number] [place] [address] Jan, Acute cystitis with hematuria N30.[address] [facility] [address] [place] [id number] [place] [address] Jan, [facility] [id number] [place] [address] Dec, [facility] [id number] [place] [address] Dec, [facility] [address] [place] [address] Dec, [facility] [address] [place] [address] Dec, [facility] [address] [place] [address] Dec, Routine adult health maintenance Z00.00 ; Chronic obstructive pulmonary disease, unspecified COPD type J44.9 and Encounter for immunization Z23 [facility] [address] [address] Nov, [facility] [id number] [place] [address] Nov, UTI (urinary tract infection) N39.0 and Other chronic pain G89.29 [facility] [address] [place] [address] [id number] [place] [address] Nov, [facility] [address] [address] Nov, [facility] [address] [place] [address] Nov, Painful urination R30.9 and UTI (urinary tract infection) N39.0 [facility] [address] [place] [address] Nov, [facility] [address] [place] [address] Nov, UTI (urinary tract infection) N39.0 [place] [address] [place] [id number] [place] [address] Nov, Dysuria R30.0 ; UTI (urinary tract infection) N39.0 and Chronic pain G89.29 [place] [address] [place] [address] Nov, [facility] [address] [place] [address] Oct, Cough R05 [place] [address] [place] [address] [id number] [place] [address] 14 Oct, 2018 Sinusitis J32.9 [place] [address] [place] [address] Oct, [place] [address] [place] [address] Oct, UTI (urinary tract infection) N39.0 and URI (upper respiratory infection) J06.9 [place] [address] [place] [address] Sep, Pain in thoracic spine M54.6 [place] [address] [place] [address] 09 Sep, 2018 Type 2 diabetes mellitus with hyperglycemia E11.65 [place] [address] [place] [id number] [place] [address] Sep, Chronic obstructive pulmonary disease, unspecified COPD type J44.9 ; Abrasion of right ear canal, initial encounter S00.411A ; Cigarette nicotine dependence without complication F17.210 ; Right leg pain M79.604 and Seasonal allergies J30.2 [place] [address] [address] Aug, [place] [address] [address] Aug, [place] [address] [address] Aug, Pain in thoracic spine M54.6 [place] [address] [address] Aug, [place] [address] [address] Aug, Chronic obstructive pulmonary disease, unspecified COPD type J44.9 ; Complete amputation of right foot, 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 ; Cigarette nicotine dependence without complication F17.210 and BMI 40.0-44.9, adult Z68.41 [place] [address] [address] Jul, [place] [address] [place] [id number] [place] [address] Jul, [place] [address] [address] Jul, Onychomycosis B35.1 ; Onychocryptosis L60.0 and DM neuro manif type II E11.[address] [address] Jun, Pain in thoracic spine M54.6 [place] [address] [address] Jun, Iron deficiency anemia due to chronic blood loss D50.[address] [facility] [address] [id number] [place] [address] Jun, Gastroenteritis K52.9 and Abnormal RBC indices R71.8 [facility] [id number] [place] [address] Jun, [facility] [id number] [place] [address] Jun, Chest congestion R09.[address] [facility] [address] [address] May, Pain in thoracic spine M54.6 [facility] [address] [address] May, [facility] [id number] [place] [address] May, [facility] [address] [address] May, [facility] [address] [address] May, Acute non-recurrent frontal sinusitis J01.[address] [facility] [id number] [place] [address] May, [facility] [id number] [place] [address] May, Pain in thoracic spine M54.6 [facility] [id number] [place] [address] May, [facility] [address] [address] May, Acute nasopharyngitis J00 [facility] [address] [id number] [place] [address] May, [facility] [address] [place] [address] May, [facility] [address] [id number] [place] [address] Apr, [facility] [address] [place] [id number] [place] [address] Apr, [place] [address] [place] [id number] [place] [address] Apr, [facility] [address] [place] [id number] [place] [address] Apr, [place] [address] [address] Apr, Pain in right ankle and joints of right foot M25.571 [place] [address] [address] Apr, [place] [address] [address] Apr, Bronchitis J40 ; Pain in right ankle and joints of right foot M25.571 ; Other chronic pain G89.29 ; Prediabetes R73.03 ; Chronic obstructive pulmonary disease, unspecified COPD type J44.9 and Cigarette nicotine dependence without complication F17.210 [facility] [id number] [place] [address] Apr, Seasonal allergic rhinitis, unspecified trigger J30.2 [place] [address] [place] [id number] [place] [address] 08 Apr, 2018 Onychomycosis B35.1 ; Onychocryptosis L60.0 and DM neuro manif type II E11.49 [place] [address] [place] [id number] [place] [address] Apr, Reactive depression F32.9 ; Thoracic myofascial strain, initial encounter S29.019A and Leg cramps R25.2 [place] [address] [place] [id number] [place] [address] March, [place] [address] [place] [id number] [place] [address] March, Type 2 diabetes mellitus with hyperglycemia E11.65 [place] [address] [place] [id number] [place] [address] March, Reactive depression F32.9 [place] [address] [address] March, Pain in thoracic spine M54.6 and Other chronic pain G89.29 [place] [address] [place] [id number] [place] [address] Feb, [place] [address] [place] [id number] [place] [address] Jan, Reactive depression F32.9 ; Essential hypertension I10 ; Gastroesophageal reflux disease, esophagitis presence not specified K21.9 ; Lumbago with sciatica, left side M54.42 and Lumbago with sciatica, right side M54.41 [place] [address] [place] [id number] [place] [address] Jan, Reactive depression F32.9 and Pharyngoesophageal dysphagia R13.14 [place] [address] [place] [id number] [place] [address] Jan, [place] [address] [place] [id number] [place] [address] Jan, Encounter for immunization Z23 [place] [address] [place] [id number] [place] [address] Jan, Onychomycosis B35.1 and DM neuro manif type II E11.49 [place] [address] [place] [id number] [place] [address] Jan, [place] [address] [place] [id number] [place] [address] Jan, Prediabetes R73.03 [place] [address] [place] [id number] [place] [address] Dec, [facility] [address] [address] Dec, Essential hypertension I10 ; Mixed hyperlipidemia E78.2 ; Acquired hypothyroidism E03.9 ; Reactive depression F32.[address] [facility] [address] [address] Dec, [facility] [address] [place] [id number] [place] [address] Dec, [place] [address] [place] [id number] [place] [address] Dec, DM neuro manif type II E11.49 [facility] [address] [id number] [place] [address] Dec, Bruise T14.8XXA ; Type 2 diabetes mellitus with hyperglycemia E11.65 and alf current use of insulin Z79.4 [place] [address] [place] [id number] [place] [address] Oct, [place] [address] [place] [id number] [place] [address] March, Onychomycosis B35.1 and DM neuro manif type II E11.49 [place] [address] [place] [id number] [place] [address] Jun, [place] [address] [place] [id number] [place] [address] Jun, [place] [address] [address] Jun, COPD with acute exacerbation 491.21 [place] [address] [place] [id number] [place] [address] Apr, [facility] [address] [address] 14 Feb, 2015 [facility] [place] [facility] [address] [id number] [place] [address] 13 Feb, 2015 [facility] [place] [facility] [address] [id number] [place] [address] 26 Jan, 2015 [facility] [place] [facility] [address] [id number] [place] [address] Jan, [facility] [place] [facility] [address] [id number] [place] [address] Jan, [facility] [place] [facility] [address] [id number] [place] [address] Jan, [facility] [place] [facility] [address] [id number] [place] [address] 24 Jan, 2015 [facility] [place] [facility] [address] [id number] [place] [address] Jan, [facility] [place] [facility] [address] [id number] [place] [address] Jan, [facility] [place] [facility] [address] [id number] [place] [address] Jan, [facility] [place] [facility] [address] [id number] [place] [address] Jan, [facility] [place] [facility] [address] [id number] [place] [address] 19 Jan, 2015 [facility] [place] [facility] [address] [id number] [place] [address] 19 Jan, 2015 [facility] [place] [facility] [address] [id number] [place] [address] 18 Jan, 2015 [facility] [place] [facility] [address] [id number] [place] [address] 18 Jan, 2015 [facility] [place] [facility] [address] [id number] [place] [address] 16 Jan, 2015 [facility] [place] [facility] [address] [id number] [place] [address] 16 Jan, 2014 [facility] [place] [facility] [address] [id number] [place] [address] 16 Jan, 2015 [facility] [place] [facility] [address] [id number] [place] [address] 16 Jan, 2014 [facility] [place] [facility] [address] [id number] [place] [address] 15 Jan, 2014 [facility] [place] [facility] [address] [id number] [place] [address] 13 Jan, 2015 [facility] [place] [facility] [address] [id number] [place] [address] 13 Jan, 2015 [facility] [place] [facility] [address] [id number] [place] [address] 13 Jan, 2015 [facility] [place] [facility] [address] [id number] [place] [address] 13 Jan, 2015 [facility] [place] [facility] [address] [id number] [place] [address] 12 Jan, 2015 [facility] [place] [facility] [address] [id number] [place] [address] 04 Jan, 2015 [facility] [place] [facility] [address] [id number] [place] [address] 04 Jan, 2015 [facility] [place] [facility] [address] [id number] [place] [address] 24 Dec, 2014 [facility] [place] [facility] [address] [id number] [place] [address] 24 Dec, 2014 [facility] [place] [facility] [address] [id number] [place] [address] 24 Dec, 2014 [facility] [place] [facility] [address] [id number] [place] [address] 24 Dec, 2014 [facility] [place] [facility] [address] [id number] [place] [address] Dec, 2014 [facility] [place] [facility] [address] [id number] [place] [address] Dec, [facility] [place] [facility] [address] [id number] [place] [address] Dec, 2014 [facility] [place] [facility] [address] [id number] [place] [address] Dec, 2014 [facility] [place] [facility] [address] [id number] [place] [address] Dec, 2014 [facility] [place] [facility] [address] [id number] [place] [address] Dec, 2014 [facility] [place] [facility] [address] [id number] [place] [address] 16 Dec, 2014 [facility] [place] [facility] [address] [id number] [place] [address] 16 Dec, 2014 [facility] [place] [facility] [address] [id number] [place] [address] Nov, [facility] [place] [facility] [address] [id number] [place] [address] Nov, [facility] [place] [facility] [address] [facility] [id number] [address] Nov, [facility] [place] [facility] [address] [id number] [place] [address] Nov, [facility] [place] [facility] [address] [id number] [address] Nov, [facility] [place] [facility] [address] [id number] [place] [address] Nov, [facility] [place] [facility] [address] [facility] [id number] [address] 15 Nov, 2014 [facility] [place] [facility] [address] [id number], [place] [address] Nov, [facility] [place] [facility] [address] [id number] [place] [address] Nov, [facility] [place] [facility] [address] [id number] [place] [address] Nov, [facility] [place] [facility] [address] [id number] [place] [address] Nov, [facility] [place] [facility] [address] [id number] [place] [address] Nov, [facility] [address] [id number] [place] [address] Oct, [facility] [place] [facility] [address] [id number] [place] [address] Oct, [facility] [address] [id number] [place] [address] Oct, [facility] [place] [facility] [address] [id number] [place] [address] Oct, [facility] [place] [facility] [address] [id number] [place] [address] Oct, [facility] [place] [facility] [address] [id number] [place] [address] Oct, [facility] [place] [facility] [address] [id number] [place] [address] Oct, [facility] [place] [facility] [address] [id number] [place] [address] Oct, [facility] [place] [facility] [address] [id number] [place] [address] Oct, [facility] [place] [facility] [address] [id number] [place] [address] 17 Oct, 2014 [facility] [place] [facility] [address] [id number] [place] [address] 16 Oct, 2014 [facility] [place] [facility] [address] [id number] [place] [address] 16 Oct, 2014 [facility] [place] [facility] [address] [id number] [place] [address] Oct, [facility] [place] [facility] [address] [id number] [place] [address] Oct, [facility] [place] [facility] [address] [id number] [place] [address] Oct, [facility] [place] [facility] [address] [id number] [place] [address] Sep, [facility] [place] [facility] [address] [id number] [place] [address] Sep, [facility] [place] [facility] [address] [id number] [place] [address] Sep, [facility] [place] [facility] [address] [id number] [place] [address] Sep, [facility] [place] [facility] [address] [id number] [place] [address] Aug, [facility] [place] [facility] [address] [id number] [place] [address] Aug, [facility] [place] [facility] [address] [id number] [place] [address] Aug, [facility] [place] [facility] [address] [id number] [address] Aug, [facility] [place] [facility] [address] [id number], [place] [address] Aug, [facility] [place] [facility] [address] [id number] [place] [address] Aug, [facility] [place] [facility] [address] [id number] [place] [address] Jul, [facility] [place] [facility] [address] [id number] [place] [address] Jul, [facility] [place] [facility] [address] [id number] [place] [address] 15 Jul, 2014 [facility] [place] [facility] [address] [id number] [place] [address] 15 Jul, 2014 [facility] [place] [facility] [address] [id number] [place] [address] Jul, [facility] [place] [facility] [address] [id number] [place] [address] Jul, [facility] [place] [facility] [address] [id number] [place] [address] Jun, [facility] [place] [facility] [address] [id number] [place] [address] Jun, [facility] [place] [facility] [address] [id number] [place] [address] Jun, [facility] [place] [facility] [address] [id number] [place] [address] Jun, [facility] [place] [facility] [address] [id number] [place] [address] Jun, [facility] [place] [facility] [address] [id number] [place] [address] Jun, [facility] [place] [facility] [address] [id number] [place] [address] Jun, [facility] [place] [facility] [address] [id number] [place] [address] May, [facility] [place] [facility] [address] [id number] [place] [address] May, [facility] [place] [facility] [address] [id number] [place] [address] May, [facility] [place] [facility] [address] [id number] [place] [address] May, [facility] [place] [facility] [address] [id number] [place] [address] May, [facility] [place] [facility] [address] [id number] [place] [address] May, 2013 [facility] [place] [facility] [address] [id number] [place] [address] May, [facility] [place] [facility] [address] [id number] [place] [address] May, 2013 [facility] [place] [facility] [address] [id number] [place] [address] May, 2013 [facility] [place] [facility] [address] [id number] [place] [address] May, [facility] [place] [facility] [address] [id number] [place] [address] May, [facility] [place] [facility] [address] [id number] [place] [address] May, [facility] [place] [facility] [address] [id number] [place] [address] Apr, [facility] [place] [facility] [address] [id number] [place] [address] Apr, [facility] [place] [facility] [address] [id number] [place] [address] Apr, [facility] [place] [facility] [address] [id number] [place] [address] Apr, [facility] [place] [facility] [address] [id number] [place] [address] Apr, [facility] [place] [facility] [address] [id number] [place] [address] Apr, [facility] [place] [facility] [address] [id number] [place] [address] Apr, [facility] [place] [facility] [address] [id number] [place] [address] Apr, [facility] [place] [facility] [address] [id number] [address] Apr, [facility] [place] [facility] [address] [id number] [place] [address] Apr, [facility] [place] [facility] [address] [id number] [place] [address] March, [facility] [place] [facility] [address] [id number] [place] [address] March, [facility] [place] [facility] [address] [id number] [place] [address] March, [facility] [place] [facility] [address] [id number] [place] [address] March, [facility] [place] [facility] [address] [id number] [place] [address] March, [facility] [place] [facility] [address] [id number] [place] [address] March, [facility] [place] [facility] [address] [id number] [place] [address] Feb, [facility] [place] [facility] [address] [id number] [place] [address] Feb, [facility] [place] [facility] [address] [id number] [place] [address] Feb, [facility] [place] [facility] [address] [id number] [place] [address] Feb, [facility] [place] [facility] [address] [id number] [place] [address] Feb, [facility] [place] [facility] [address] [id number] [place] [address] Feb, [facility] [place] [facility] [address] [id number] [place] [address] Feb, [facility] [place] [facility] [address] [id number] [place] [address] Feb, [facility] [place] [facility] [address] [id number] [place] [address] Feb, [facility] [place] [facility] [address] [id number] [place] [address] Feb, [facility] [place] [facility] [address] [id number] [place] [address] Jan, [facility] [place] [facility] [address] [id number] [place] [address] Jan, [facility] [place] [facility] [address] [id number] [place] [address] Jan, [facility] [place] [facility] [address] [id number] [place] [address] Jan, [facility] [place] [facility] [address] [id number] [place] [address] Jan, [facility] [place] [facility] [address] [id number] [place] [address] Jan, [facility] [place] [facility] [address] [id number] [place] [address] Jan, [facility] [place] [facility] [address] [id number] [place] [address] Jan, [facility] [place] [facility] [address] [id number] [place] [address] Dec, [facility] [place] [facility] [address] [id number] [place] [address] Dec, [facility] [place] [facility] [address] [id number] [place] [address] Dec, [facility] [place] [facility] [address] [id number] [place] [address] Dec, [facility] [place] [facility] [address] [id number] [place] [address] Dec, [facility] [place] [facility] [address] [id number], [place] [address] Dec, [facility] [place] [facility] [address] [id number] [place] [address] Dec, [facility] [place] [facility] [address] [id number] [place] [address] Dec, [facility] [place] [facility] [address] [id number] [place] [address] Nov, [facility] [place] [facility] [address] [id number] [place] [address] Nov, [facility] [place] [facility] [address] [id number] [place] [address] Nov, [facility] [place] [facility] [address] [id number] [place] [address] Nov, [facility] [place] [facility] [address] [id number] [place] [address] Nov, [facility] [place] [facility] [address] [id number] [place] [address] Nov, [facility] [place] [facility] [address] [id number] [place] [address] Nov, [facility] [place] [facility] [address] [facility] [id number] [place] [address] Nov, [facility] [place] [facility] [address] [id number] [place] [address] Nov, [facility] [place] [facility] [address] [id number], [place] [address] Nov, [facility] [place] [facility] [address] [id number] [place] [address] Nov, [facility] [place] [facility] [address] [id number] [place] [address] Oct, [facility] [place] [facility] [address] [id number] [place] [address] Oct, [facility] [place] [facility] [address] [id number] [place] [address] Oct, [facility] [place] [facility] [address] [id number] [place] [address] Oct, [facility] [place] [facility] [address] [id number] [place] [address] Sep, [facility] [place] [facility] [address] [id number] [place] [address] Sep, [facility] [place] [facility] [address] [id number] [place] [address] Sep, [facility] [place] [facility] [address] [id number] [place] [address] Sep, [facility] [place] [facility] [address] [id number] [place] [address] Aug, [facility] [place] [facility] [address] [id number] [place] [address] Aug, [facility] [place] [facility] [address] [id number] [place] [address] Aug, [facility] [place] [facility] [address] [id number] [place] [address] Aug, [facility] [place] [facility] [address] [id number] [place] [address] Aug, [facility] [place] [facility] [address] [id number] [place] [address] Aug, [facility] [place] [facility] [address] [id number] [place] [address] Aug, [facility] [place] [facility] [address] [id number] [place] [address] Aug, [facility] [place] [facility] [address] [id number] [place] [address] Jul, [facility] [place] [facility] [address] [id number] [place] [address] 27 Sep, 2012 [facility] [place] [facility] [address] [id number] [place] [address] 26 Sep, 2012 [facility] [place] [facility] [address] [id number] [place] [address] 24 Sep, 2012 [facility] [place] [facility] [address] [id number] [place] [address] 24 Jul, 2012 [facility] [place] [facility] [address] [id number] [place] [address] 23 Jul, 2012 [facility] [place] [facility] [address] [id number] [place] [address] 19 Sep, 2012 [facility] [place] [facility] [address] [id number] [place] [address] 18 Jul, 2012 [facility] [place] [facility] [address] [id number] [place] [address] 17 Jul, 2012 [facility] [place] [facility] [address] [id number] [place] [address] 16 Jul, 2012 [facility] [place] [facility] [address] [id number] [place] [address] 13 Jul, 2012 [facility] [place] [facility] [address] [id number] [place] [address] 13 Jul, 2012 [facility] [place] [facility] [address] [id number], [place] [address] 12 Jul, 2012 [facility] [place] [facility] [address] [id number], [place] [address] 11 Jul, 2012 [facility] [place] [facility] [address] [id number] [place] [address] 04 Jul, 2012 [facility] [place] [facility] [address] [id number] [place] [address] 30 Jun, 2013 [facility] [place] [facility] [address] [id number] [place] [address] 20 Jun, 2013 [facility] [place] [facility] [address] [id number] [place] [address] Jun, [facility] [address] [id number] [place] [address] May, [facility] [place] [facility] [address] [id number] [place] [address] May, [facility] [address] [id number] [place] [address] May, [facility] [place] [facility] [address] [id number] [place] [address] May, [facility] [address] [id number] [place] [address] Apr, [facility] [place] [facility] [address] [id number] [place] [address] Apr, [facility] [address] [id number] [place] [address] Apr, [facility] [place] [facility] [address] [id number] [place] [address] Apr, [facility] [place] [facility] [address] [id number] [place] [address] March, [facility] [address] [id number] [place] [address] March, [facility] [place] [facility] [address] [id number] [place] [address] March, [facility] [place] [facility] [address] [id number] [place] [address] Feb, [facility] [place] [facility] [address] [id number] [place] [address] Feb, [facility] [place] [facility] [address] [id number] [place] [address] Jan, [facility] [place] [facility] [address] [id number] [place] [address] Jan, [facility] [place] [facility] [address] [id number] [place] [address] Jan, [facility] [address] [id number] [place] [address] Jan, [facility] [address] [id number] [place] [address] Jan, [facility] [address] [id number] [place] [address] Dec, [facility] [address] [id number] [place] [address] Dec, [facility] [place] [facility] [address] [id number] [place] [address] Dec, [facility] [address] [id number] [place] [address] Dec, [facility] [address] [id number] [place] [address] Dec, [facility] [address] [id number] [place] [address] Dec, [facility] [address] [id number] [place] [address] Dec, [facility] [place] [facility] [address] [id number] [place] [address] Dec, [facility] [place] [facility] [address] [id number] [place] [address] Nov, [facility] [place] [facility] [address] [id number] [place] [address] Nov, [facility] [place] [facility] [address] [id number] [place] [address] Nov, [facility] [place] [facility] [address] [id number] [place] [address] Nov, [facility] [place] [facility] [address] [id number] [place] [address] Nov, [facility] [place] [facility] [address] [id number] [place] [address] Nov, [facility] [place] [facility] [address] [id number] [place] [address] Nov, [facility] [address] [id number] [place] [address] Oct, [facility] [place] [facility] [address] [id number] [place] [address] Oct, [facility] [place] [facility] [address] [id number] [place] [address] Oct, [facility] [place] [facility] [address] [id number] [place] [address] Oct, [facility] [address] [id number] [place] [address] Oct, [facility] [place] [facility] [address] [id number] [place] [address] Oct, [facility] [place] [facility] [address] [id number] [place] [address] Oct, [facility] [place] [facility] [address] [id number] [place] [address] Oct, [facility] [place] [facility] [address] [id number] [place] [address] Sep, [facility] [place] [facility] [address] [id number] [place] [address] Sep, [facility] [place] [facility] [address] [id number] [place] [address] Sep, [facility] [place] [facility] [address] [id number] [place] [address] Sep, [facility] [place] [facility] [address] [id number] [place] [address] Sep, [facility] [place] [facility] [address] [id number] [place] [address] Sep, [facility] [place] [facility] [address] [id number] [place] [address] Sep, [facility] [place] [facility] [address] [id number] [place] [address] Sep, [facility] [place] [facility] [address] [id number] [place] [address] Sep, [facility] [place] [facility] [address] [id number] [place] [address] Sep, [facility] [place] [facility] [address] [id number] [place] [address] Sep, [facility] [place] [facility] [address] [id number] [place] [address] Sep, [facility] [place] [facility] [address] [id number] [place] [address] Sep, [facility] [place] [facility] [address] [id number] [place] [address] Sep, [facility] [place] [facility] [address] [id number] [place] [address] Sep, [facility] [place] [facility] [address] [id number] [place] [address] Sep, [facility] [place] [facility] [address] [id number] [place] [address] Sep, [facility] [place] [facility] [address] [id number] [place] [address] Sep, [facility] [place] [facility] [address] [id number] [place] [address] Sep, [facility] [place] [facility] [address] [id number] [place] [address] Sep, [facility] [place] [facility] [address] [id number] [place] [address] 31 Aug, 2012 [facility] [place] [facility] [address] [id number] [place] [address] 31 Aug, 2012 [facility] [place] [facility] [address] [id number] [place] [address] 29 Aug, 2012 [facility] [place] [facility] [address] [id number] [place] [address] Aug, [facility] [place] [facility] [address] [id number] [place] [address] 27 Aug, 2012 [facility] [place] [facility] [address] [id number] [place] [address] 18 Aug, 2012 [facility] [place] [facility] [address] [id number] [place] [address] 18 Aug, 2012 [facility] [place] [facility] [address] [id number] [place] [address] 17 Aug, 2012 [facility] [place] [facility] [address] [id number], [place] [address] 16 Aug, 2012 [facility] [place] [facility] [address] [id number] [place] [address] 16 Aug, 2012 [facility] [place] [facility] [address] [id number] [place] [address] 15 Aug, 2012 [facility] [place] [facility] [address] [id number], [place] [address] 09 Aug, 2012 [facility] [place] [facility] [address] [id number], [place] [address] 05 Aug, 2012 [facility] [place] [facility] [address] [id number] [place] [address] 05 Aug, 2012 [facility] [place] [facility] [address] [id number], [place] [address] 04 Aug, 2012 [facility] [place] [facility] [address] [id number] [place] [address] 14 Jul, 2012 [facility] [place] [facility] [address] [id number] [place] [address] 10 Jul, 2012 [facility] [address] [id number] [place] [address] Jun, [facility] [place] [facility] [address] [id number] [place] [address] Jun, [facility] [address] [id number] [place] [address] May, [facility] [address] [id number] [place] [address] May, [facility] [address] [id number] [place] [address] May, [facility] [address] [id number] [place] [address] May, [facility] [address] [id number] [place] [address] May, [facility] [address] [id number] [place] [address] May, [facility] [address] [id number] [place] [address] Apr, [facility] [address] [id number] [place] [address] Apr, [facility] [address] [id number] [place] [address] March, [facility] [address] [id number] [place] [address] March, [facility] [place] [facility] [address] [id number] [place] [address] March, [facility] [address] [id number] [place] [address] March, [facility] [address] [id number] [place] [address] March, [facility] [address] [id number] [place] [address] March, [facility] [place] [facility] [address] [id number] [place] [address] Feb, [facility] [place] [facility] [address] [id number] [place] [address] Feb, [facility] [place] [facility] [address] [id number] [place] [address] Feb, [facility] [place] [facility] [address] [id number] [place] [address] Feb, [facility] [place] [facility] [address] [id number] [place] [address] Feb, [facility] [place] [facility] [address] [id number] [place] [address] Feb, [facility] [place] [facility] [address] [id number] [place] [address] Feb, [facility] [place] [facility] [address] [id number] [place] [address] Feb, [facility] [place] [facility] [address] [id number] [place] [address] Feb, [facility] [place] [facility] [address] [id number] [place] [address] Jan, [facility] [place] [facility] [address] [id number] [address] Jan, [facility] [place] [facility] [address] [id number] [place] [address] Jan, [facility] [place] [facility] [address] [id number] [place] [address] Jan, [facility] [place] [facility] [address] [id number] [place] [address] Jan, [facility] [place] [facility] [address] [id number], [place] [address] 20 Jan, 2012 [facility] [place] [facility] [address] [id number] [place] [address] 14 Jan, 2012 [facility] [place] [facility] [address] [id number] [place] [address] 09 Jan, 2012 [facility] [place] [facility] [address] [facility] [id number] [place] [address] 09 Jan, 2012 [facility] [place] [facility] [address] [facility] [id number] [place] [address] 08 Jan, 2012 [facility] [place] [facility] [address] [id number] [place] [address] 07 Jan, 2012 [facility] [place] [facility] [address] [facility] [id number] [place] [address] 06 Jan, 2012 [facility] [place] [facility] [id number] [place] [address] Jan, [facility] [place] [facility] [address] [facility] [id number] [place] [address] Jan, [facility] [place] [facility] [address] [id number] [place] [address] 28 Dec, 2011 [facility] [place] [facility] [address] [id number] [place] [address] 27 Dec, 2011 [facility] [place] [facility] [id number] [place] [address] 25 Dec, 2011 [facility] [place] [facility] [address] [facility] [id number] [place] [address] 23 Dec, 2011 [facility] [place] [facility] [address] [facility] [id number] [place] [address] 16 Dec, 2011 [facility] [place] [facility] [address] [facility] [id number] [place] [address] 08 Dec, 2011 [facility] [place] [facility] [address] [id number] [place] [address] 08 Dec, 2011 [facility] [address] [id number] [place] [address] Dec, [facility] [place] [facility] [address] [id number] [place] [address] Dec, [facility] [place] [facility] [address] [id number] [place] [address] Nov, [facility] [place] [facility] [address] [id number] [place] [address] Nov, [facility] [address] [id number] [place] [address] Nov, [facility] [place] [facility] [address] [id number] [place] [address] Nov, [facility] [place] [facility] [address] [id number] [place] [address] Oct, [facility] [place] [facility] [address] [id number] [place] [address] Oct, [facility] [place] [facility] [address] [id number] [place] [address] Oct, [facility] [place] [facility] [address] [id number] [place] [address] Oct, [facility] [place] [facility] [address] [id number] [place] [address] Oct, [facility] [place] [facility] [address] [id number], [place] [address] Oct, [facility] [place] [facility] [address] [id number] [place] [address] Oct, [facility] [place] [facility] [address] [id number] [place] [address] Sep, [facility] [place] [facility] [address] [id number] [place] [address] Sep, [facility] [place] [facility] [address] [id number] [place] [address] Sep, [facility] [place] [facility] [address] [id number] [place] [address] Sep, [facility] [place] [facility] [address] [id number] [place] [address] Sep, [facility] [place] [facility] [address] [id number] [place] [address] Sep, [facility] [place] [facility] [address] [id number] [place] [address] Sep, [facility] [place] [facility] [address] [id number] [place] [address], [place] [address] Sep, [facility] [place] [facility] [address] [id number] [place] [address] Sep, [facility] [place] [facility] [address] [id number] [place] [address] Aug, [facility] [place] [facility] [address] [id number] [place] [address] Aug, [facility] [place] [facility] [address] [id number] [place] [address] Aug, [facility] [place] [facility] [address] [id number] [place] [address] May, [facility] [place] [facility] [address] [id number] [place] [address] Nov, [facility] [place] [facility] [address] [id number], [place] [address] Oct, [facility] [place] [facility] [address] [id number] [place] [address] Oct, [facility] [place] [facility] [address] [id number] [place] [address] Oct, [facility] [place] [facility] [address] [facility] [id number] [place] [address] Oct, [facility] [place] [facility] [address] [id number] [place] [address] Oct, [facility] [place] [facility] [address] [id number] [place] [address] 03 Sep, 2010 [facility] [place] [facility] [address] [id number] [place] [address] 02 Sep, 2010 [facility] [place] [facility] [address] [id number] [place] [address] 14 Jul, 2010 [facility] [place] [facility] [address] [id number] [place] [address] 31 Oct, 2009 [facility] [place] [facility] [address] [id number] [place] [address] Oct, [facility] [place] [facility] [address] [facility] [id number] [place] [address] Oct, [facility] [place] [facility] [address] [id number] [place] [address] Oct, [facility] [place] [facility] [address] [id number] [place] [address] 30 Sep, 2009 [facility] [place] [facility] [address] [id number] [place] [address] 13 Sep, 2009 [facility] [place] [facility] [address] [facility] [id number] [place] [address] 13 Sep, 2009 [facility] [place] [facility] [address] [id number] [place] [address] 04 Sep, 2009 [facility] [place] [facility] [address] [id number] [place] [address] 03 Sep, 2009 [facility] [place] [facility] [address] [id number] [place] [address] 11 Jul, 2009 [facility] [place] [facility] [address] [id number], [place] [address] 10 Apr, 2009 [facility] [place] [facility] [address] [id number][place] [address] 12 Dec, 2008 IMMUNIZATIONS No Known Immunizations [...]
--- OUTSIDE RECORDS SUMMARY | 2019-06-30 18:09 | XMS REPORT ---
Author Author ETELVINA LEONARD [facility] Address [address] [place] [address] Care Team Providers Care Industrial Waste Inspector Name Role Phone ETELVINA LEONARD Unavailable PROBLEMS Type Condition ICD9-CM Code UYX15-YA Code Onset Dates Condition Status SNOMED Code Problem Acquired hypothyroidism E03.9 Active 717709689 Problem Mixed hyperlipidemia E78.2 Active 079839755 Problem Gastroesophageal reflux disease, esophagitis presence not specified K21.9 Active 078460606 Problem Essential hypertension I10 Active 13845934 Problem Lumbago with sciatica, right side M54.41 Active [id number] Problem Lumbago with sciatica, left side M54.42 Active 280377046 Problem Chronic obstructive pulmonary disease, unspecified COPD type J44.9 Active 90143340 Problem Other chronic pain G89.29 Active 90185963 Problem Seizures R56.9 Active 36029601 Problem Iron deficiency anemia due to chronic blood loss D50.0 Active 595747466 Problem Seasonal allergies J30.2 Active 971112734 Problem Generalized anxiety disorder F41.1 Active 29119733 Problem DM neuro manif type II E11.49 Active 46494291 Problem Reactive depression F32.9 Active 79861981 Problem Urinary incontinence in female R32 Active 374562094 Problem Cigarette nicotine dependence without complication F17.210 Active 51918751 Problem Prediabetes R73.03 Active 620497110 Problem Sinusitis J32.9 Active 43216853 Problem Chronic pain G89.29 Active 62426920 Problem Adjustment disorder with disturbance of emotion F43.29 Active 68618042 Problem Major depressive disorder, recurrent, moderate F33.1 Active [id number] ALLERGIES No Information ENCOUNTERS Encounter Location Date Diagnosis [facility] [address] [facility] [id number] [address] Jun, [facility] [address] [place] [id number] [place] [address] May, [facility] [id number] [place] [address] May, [facility] [id number] [place] [address] May, [facility] [id number] [place] [address] May, [facility] [id number] [place] [address] May, Encounter for immunization Z23 [facility] [address] [address] May, UTI (urinary tract infection) N39.0 and Urinary incontinence in female R32 [place] [id number] [place] [address] May, Major depressive disorder, recurrent, moderate F33.1 and Generalized anxiety disorder F41.1 [facility] [id number] [place] [address] May, Bronchitis J40 [place] [id number] [place] [address] May, Major depressive disorder, recurrent, moderate F33.1 and Adjustment disorder with disturbance of emotion F43.29 [place] [address] [id number] [place] [address] Apr, [place] [address] [address] [id number] [place] [address] 18 Apr, 2019 Type 2 diabetes mellitus with hyperglycemia E11.65 [place] [address] [address] 17 Apr, 2019 Type 2 diabetes mellitus with hyperglycemia E11.65 [facility] [id number] [place] [address] 14 Apr, 2019 Major depressive disorder, recurrent, moderate F33.1 and Adjustment disorder with disturbance of emotion F43.29 [place] [id number] [place] [address] Apr, [place] [address] [address] Apr, Diarrhea, unspecified type R19.7 [place] [address] [address] Apr, Low back pain M54.5 ; Other chronic pain G89.29 and Anemia, unspecified type D64.9 [place] [address] [address] Apr, [place] [address] [address] Apr, Diarrhea, unspecified type R19.7 and Lumbar radiculopathy, chronic M54.16 [facility] [place] [address] [address] March, Non-intractable vomiting with nausea, unspecified vomiting type R11.2 and Muscle cramps R25.2 [place] [address] [address] March, [place] [address] [address] March, Other chronic pain G89.29 [place] [address] [address] March, Type 2 diabetes mellitus with hyperglycemia E11.65 ; Flank pain R10.9 ; Acute cystitis without hematuria N30.00 ; Chronic obstructive pulmonary disease, unspecified COPD type J44.9 and Moderate episode of recurrent major depressive disorder F33.1 [place] [address] [address] [id number] [place] [address] March, [facility] [address] [address] March, Wheezing R06.2 and Viral upper respiratory tract infection J06.9 [facility] [address] [address] Feb, [facility] [id number] [place] [address] Feb, [facility] [id number] [place] [address] Jan, [facility] [id number] [place] [address] Jan, Acute cystitis with hematuria N30.[address] [facility] [id number] [place] [address] Jan, [facility] [id number] [place] [address] Dec, [facility] [id number] [place] [address] Dec, [facility] [id number] [place] [address] Dec, [facility] [id number] [place] [address] Dec, [facility] [id number] [place] [address] Dec, Routine adult health maintenance Z00.00 ; Chronic obstructive pulmonary disease, unspecified COPD type J44.9 and Encounter for immunization Z23 [facility] [address] [address] Nov, [facility] [id number] [place] [address] Nov, UTI (urinary tract infection) N39.0 and Other chronic pain G89.29 [facility] [id number] [place] [address] Nov, [facility] [address] [address] Nov, [facility] [id number] [place] [address] Nov, Painful urination R30.9 and UTI (urinary tract infection) N39.0 [facility] [id number] [place] [address] Nov, [facility] [id number] [place] [address] Nov, UTI (urinary tract infection) N39.0 [place] [id number] [place] [address] Nov, Dysuria R30.0 ; UTI (urinary tract infection) N39.0 and Chronic pain G89.29 [place] [address] [place] [address] Nov, [facility] [address] [place] [address] Oct, Cough R05 [place] [address] [id number] [place] [address] 14 Oct, 2018 Sinusitis J32.9 [place] [id number] [place] [address] Oct, [place] [id number] [place] [address] Oct, UTI (urinary tract infection) N39.0 and URI (upper respiratory infection) J06.9 [place] [id number] [place] [address] Sep, Pain in thoracic spine M54.6 [place] [id number] [place] [address] 09 Sep, 2018 Type 2 diabetes mellitus with hyperglycemia E11.65 [place] [id number] [place] [address] Sep, Chronic obstructive pulmonary disease, unspecified COPD type J44.9 ; Abrasion of right ear canal, initial encounter S00.411A ; Cigarette nicotine dependence without complication F17.210 ; Right leg pain M79.604 and Seasonal allergies J30.2 [place] [address] [address] Aug, [place] [address] [address] Aug, [place] [address] [address] Aug, Pain in thoracic spine M54.6 [place] [address] [address] Aug, [place] [address] [address] Aug, Chronic obstructive pulmonary disease, unspecified COPD type J44.9 ; Complete amputation of right foot, 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 ; Cigarette nicotine dependence without complication F17.210 and BMI 40.0-44.9, adult Z68.41 [place] [address] [address] Jul, [place] [address] [place] [id number] [place] [address] Jul, [place] [address] [address] Jul, Onychomycosis B35.1 ; Onychocryptosis L60.0 and DM neuro manif type II E11.[address] [address] Jun, Pain in thoracic spine M54.6 [place] [address] [address] Jun, Iron deficiency anemia due to chronic blood loss D50.[address] [facility] [id number] [place] [address] Jun, Gastroenteritis K52.9 and Abnormal RBC indices R71.8 [facility] [id number] [place] [address] Jun, [facility] [id number] [place] [address] Jun, Chest congestion R09.[address] [facility] [address] [address] May, Pain in thoracic spine M54.6 [facility] [address] [address] May, [facility] [address] [id number] [place] [address] May, [facility] [address] [address] May, [facility] [address] [address] May, Acute non-recurrent frontal sinusitis J01.[address] [facility] [id number] [place] [address] May, [facility] [id number] [place] [address] May, Pain in thoracic spine M54.6 [facility] [id number] [place] [address] May, [facility] [address] [address] May, Acute nasopharyngitis J00 [facility] [address] [id number] [place] [address] May, [facility] [address] [place] [address] May, [facility] [id number] [place] [address] Apr, [facility] [address] [place] [id number] [place] [address] Apr, [place] [address] [place] [id number] [place] [address] Apr, [facility] [address] [place] [id number] [place] [address] Apr, [place] [address] [address] Apr, Pain in right ankle and joints of right foot M25.571 [place] [address] [address] Apr, [place] [address] [address] Apr, Bronchitis J40 ; Pain in right ankle and joints of right foot M25.571 ; Other chronic pain G89.29 ; Prediabetes R73.03 ; Chronic obstructive pulmonary disease, unspecified COPD type J44.9 and Cigarette nicotine dependence without complication F17.210 [facility] [id number] [place] [address] Apr, Seasonal allergic rhinitis, unspecified trigger J30.2 [place] [address] [place] [id number] [place] [address] 08 Apr, 2018 Onychomycosis B35.1 ; Onychocryptosis L60.0 and DM neuro manif type II E11.49 [place] [address] [place] [id number] [place] [address] Apr, Reactive depression F32.9 ; Thoracic myofascial strain, initial encounter S29.019A and Leg cramps R25.2 [place] [address] [place] [id number] [place] [address] March, [place] [address] [place] [id number] [place] [address] March, Type 2 diabetes mellitus with hyperglycemia E11.65 [place] [address] [place] [id number] [place] [address] March, Reactive depression F32.9 [place] [address] [address] March, Pain in thoracic spine M54.6 and Other chronic pain G89.29 [place] [address] [place] [id number] [place] [address] Feb, [place] [address] [place] [id number] [place] [address] Jan, Reactive depression F32.9 ; Essential hypertension I10 ; Gastroesophageal reflux disease, esophagitis presence not specified K21.9 ; Lumbago with sciatica, left side M54.42 and Lumbago with sciatica, right side M54.41 [place] [address] [place] [id number] [place] [address] Jan, Reactive depression F32.9 and Pharyngoesophageal dysphagia R13.14 [place] [address] [place] [id number] [place] [address] Jan, [place] [address] [place] [id number] [place] [address] Jan, Encounter for immunization Z23 [place] [address] [place] [id number] [place] [address] Jan, Onychomycosis B35.1 and DM neuro manif type II E11.49 [place] [address] [place] [id number] [place] [address] Jan, [place] [address] [place] [id number] [place] [address] Jan, Prediabetes R73.03 [place] [address] [place] [id number] [place] [address] Dec, [facility] [address] [address] Dec, Essential hypertension I10 ; Mixed hyperlipidemia E78.2 ; Acquired hypothyroidism E03.9 ; Reactive depression F32.[address] [facility] [address] [address] Dec, [facility] [address] [id number] [place] [address] Dec, [place] [address] [place] [id number] [place] [address] Dec, DM neuro manif type II E11.49 [facility] [id number] [place] [address] Dec, Bruise T14.8XXA ; Type 2 diabetes mellitus with hyperglycemia E11.65 and FPC current use of insulin Z79.4 [place] [address] [place] [id number] [place] [address] Oct, [place] [address] [place] [id number] [place] [address] March, Onychomycosis B35.1 and DM neuro manif type II E11.49 [place] [address] [place] [id number] [place] [address] Jun, [place] [address] [place] [id number] [place] [address] Jun, [place] [address] [address] Jun, COPD with acute exacerbation 491.21 [place] [address] [place] [id number] [place] [address] Apr, [facility] [address] [address] 14 Feb, 2015 [facility] [place] [facility] [address] [id number] [place] [address] 13 Feb, 2015 [facility] [place] [facility] [address] [id number] [place] [address] 26 Jan, 2015 [facility] [place] [facility] [address] [id number] [place] [address] Jan, [facility] [place] [facility] [address] [id number] [place] [address] Jan, [facility] [place] [facility] [address] [id number] [place] [address] Jan, [facility] [place] [facility] [address] [id number] [place] [address] 24 Jan, 2015 [facility] [place] [facility] [address] [id number] [place] [address] Jan, [facility] [place] [facility] [address] [id number] [place] [address] Jan, [facility] [place] [facility] [address] [id number] [place] [address] Jan, [facility] [place] [facility] [address] [id number] [place] [address] Jan, [facility] [place] [facility] [address] [id number] [place] [address] 19 Jan, 2015 [facility] [place] [facility] [address] [id number] [place] [address] 19 Jan, 2015 [facility] [place] [facility] [address] [id number] [place] [address] 18 Jan, 2015 [facility] [place] [facility] [address] [id number] [place] [address] 18 Jan, 2015 [facility] [place] [facility] [address] [id number] [place] [address] 16 Jan, 2015 [facility] [place] [facility] [address] [id number] [place] [address] 16 Jan, 2014 [facility] [place] [facility] [address] [id number] [place] [address] 16 Jan, 2015 [facility] [place] [facility] [address] [id number] [place] [address] 16 Jan, 2014 [facility] [place] [facility] [address] [id number] [place] [address] 15 Jan, 2014 [facility] [place] [facility] [address] [id number] [place] [address] 13 Jan, 2015 [facility] [place] [facility] [address] [id number] [place] [address] 13 Jan, 2015 [facility] [place] [facility] [address] [id number] [place] [address] 13 Jan, 2015 [facility] [place] [facility] [address] [id number] [place] [address] 13 Jan, 2015 [facility] [place] [facility] [address] [id number] [place] [address] 12 Jan, 2015 [facility] [place] [facility] [address] [id number] [place] [address] 04 Jan, 2015 [facility] [place] [facility] [address] [id number] [place] [address] 04 Jan, 2015 [facility] [place] [facility] [address] [id number] [place] [address] 24 Dec, 2014 [facility] [place] [facility] [address] [id number] [place] [address] 24 Dec, 2014 [facility] [place] [facility] [address] [id number] [place] [address] 24 Dec, 2014 [facility] [place] [facility] [address] [id number] [place] [address] 24 Dec, 2014 [facility] [place] [facility] [address] [id number] [place] [address] Dec, 2014 [facility] [place] [facility] [address] [id number] [place] [address] Dec, [facility] [place] [facility] [address] [id number] [place] [address] Dec, 2014 [facility] [place] [facility] [address] [id number] [place] [address] Dec, 2014 [facility] [place] [facility] [address] [id number] [place] [address] Dec, 2014 [facility] [place] [facility] [address] [id number] [place] [address] Dec, 2014 [facility] [place] [facility] [address] [id number] [place] [address] 16 Dec, 2014 [facility] [place] [facility] [address] [id number] [place] [address] 16 Dec, 2014 [facility] [place] [facility] [address] [id number] [place] [address] Nov, [facility] [place] [facility] [address] [id number] [place] [address] Nov, [facility] [place] [facility] [address] [facility] [id number] [address] Nov, [facility] [place] [facility] [address] [id number] [place] [address] Nov, [facility] [place] [facility] [address] [id number] [address] Nov, [facility] [place] [facility] [address] [id number] [place] [address] Nov, [facility] [place] [facility] [address] [facility] [id number], [place] [address] 15 Nov, 2014 [facility] [place] [facility] [address] [id number], [place] [address] Nov, [facility] [place] [facility] [address] [id number] [place] [address] Nov, [facility] [place] [facility] [address] [id number] [place] [address] Nov, [facility] [place] [facility] [address] [id number] [place] [address] Nov, [facility] [place] [facility] [address] [id number] [place] [address] Nov, [facility] [address] [id number] [place] [address] Oct, [facility] [place] [facility] [address] [id number] [place] [address] Oct, [facility] [address] [id number] [place] [address] Oct, [facility] [place] [facility] [address] [id number] [place] [address] Oct, [facility] [place] [facility] [address] [id number] [place] [address] Oct, [facility] [place] [facility] [address] [id number] [place] [address] Oct, [facility] [place] [facility] [address] [id number] [place] [address] Oct, [facility] [place] [facility] [address] [id number] [place] [address] Oct, [facility] [place] [facility] [address] [id number] [place] [address] Oct, [facility] [place] [facility] [address] [id number] [place] [address] 17 Oct, 2014 [facility] [place] [facility] [address] [id number] [place] [address] 16 Oct, 2014 [facility] [place] [facility] [address] [id number] [place] [address] 16 Oct, 2014 [facility] [place] [facility] [address] [id number] [place] [address] Oct, [facility] [place] [facility] [address] [id number] [place] [address] Oct, [facility] [place] [facility] [address] [id number] [place] [address] Oct, [facility] [place] [facility] [address] [id number] [place] [address] Sep, [facility] [place] [facility] [address] [id number] [place] [address] Sep, [facility] [place] [facility] [address] [id number] [place] [address] Sep, [facility] [place] [facility] [address] [id number] [place] [address] Sep, [facility] [place] [facility] [address] [id number] [place] [address] Aug, [facility] [place] [facility] [address] [id number] [place] [address] Aug, [facility] [place] [facility] [address] [id number] [place] [address] Aug, [facility] [place] [facility] [address] [id number] [address] Aug, [facility] [place] [facility] [address] [id number], [place] [address] Aug, [facility] [place] [facility] [address] [id number] [place] [address] Aug, [facility] [place] [facility] [address] [id number] [place] [address] Jul, [facility] [place] [facility] [address] [id number] [place] [address] Jul, [facility] [place] [facility] [address] [id number] [place] [address] 15 Jul, 2014 [facility] [place] [facility] [address] [id number] [place] [address] 15 Jul, 2014 [facility] [place] [facility] [address] [id number] [place] [address] Jul, [facility] [place] [facility] [address] [id number] [place] [address] Jul, [facility] [place] [facility] [address] [id number] [place] [address] Jun, [facility] [place] [facility] [address] [id number] [place] [address] Jun, [facility] [place] [facility] [address] [id number] [place] [address] Jun, [facility] [place] [facility] [address] [id number] [place] [address] Jun, [facility] [place] [facility] [address] [id number] [place] [address] Jun, [facility] [place] [facility] [address] [id number] [place] [address] Jun, [facility] [place] [facility] [address] [id number] [place] [address] Jun, [facility] [place] [facility] [address] [id number] [place] [address] May, [facility] [place] [facility] [address] [id number] [place] [address] May, [facility] [place] [facility] [address] [id number] [place] [address] May, [facility] [place] [facility] [address] [id number] [place] [address] May, [facility] [place] [facility] [address] [id number] [place] [address] May, [facility] [place] [facility] [address] [id number] [place] [address] May, 2013 [facility] [place] [facility] [address] [id number] [place] [address] May, [facility] [place] [facility] [address] [id number] [place] [address] May, 2013 [facility] [place] [facility] [address] [id number] [place] [address] May, 2013 [facility] [place] [facility] [address] [id number] [place] [address] May, [facility] [place] [facility] [address] [id number] [place] [address] May, [facility] [place] [facility] [address] [id number] [place] [address] May, [facility] [place] [facility] [address] [id number] [place] [address] Apr, [facility] [place] [facility] [address] [id number] [place] [address] Apr, [facility] [place] [facility] [address] [id number] [place] [address] Apr, [facility] [place] [facility] [address] [id number] [place] [address] Apr, [facility] [place] [facility] [address] [id number] [place] [address] Apr, [facility] [place] [facility] [address] [id number] [place] [address] Apr, [facility] [place] [facility] [address] [id number] [place] [address] Apr, [facility] [place] [facility] [address] [id number] [place] [address] Apr, [facility] [place] [facility] [address] [id number] [address] Apr, [facility] [place] [facility] [address] [id number] [place] [address] Apr, [facility] [place] [facility] [address] [id number] [place] [address] March, [facility] [place] [facility] [address] [id number] [place] [address] March, [facility] [place] [facility] [address] [id number] [place] [address] March, [facility] [place] [facility] [address] [id number] [place] [address] March, [facility] [place] [facility] [address] [id number] [place] [address] March, [facility] [place] [facility] [address] [id number] [place] [address] March, [facility] [place] [facility] [address] [id number] [place] [address] Feb, [facility] [place] [facility] [address] [id number] [place] [address] Feb, [facility] [place] [facility] [address] [id number] [place] [address] Feb, [facility] [place] [facility] [address] [id number] [place] [address] Feb, [facility] [place] [facility] [address] [id number] [place] [address] Feb, [facility] [place] [facility] [address] [id number] [place] [address] Feb, [facility] [place] [facility] [address] [id number] [place] [address] Feb, [facility] [place] [facility] [address] [id number] [place] [address] Feb, [facility] [place] [facility] [address] [id number] [place] [address] Feb, [facility] [place] [facility] [address] [id number] [place] [address] Feb, [facility] [place] [facility] [address] [id number] [place] [address] Jan, [facility] [place] [facility] [address] [id number] [place] [address] Jan, [facility] [place] [facility] [address] [id number] [place] [address] Jan, [facility] [place] [facility] [address] [id number] [place] [address] Jan, [facility] [place] [facility] [address] [id number] [place] [address] Jan, [facility] [place] [facility] [address] [id number] [place] [address] Jan, [facility] [place] [facility] [address] [id number] [place] [address] Jan, [facility] [place] [facility] [address] [id number] [place] [address] Jan, [facility] [place] [facility] [address] [id number] [place] [address] Dec, [facility] [place] [facility] [address] [id number] [place] [address] Dec, [facility] [place] [facility] [address] [id number] [place] [address] Dec, [facility] [place] [facility] [address] [id number] [place] [address] Dec, [facility] [place] [facility] [address] [id number] [place] [address] Dec, [facility] [place] [facility] [address] [id number], [place] [address] Dec, [facility] [place] [facility] [address] [id number] [place] [address] Dec, [facility] [place] [facility] [address] [id number] [place] [address] Dec, [facility] [place] [facility] [address] [id number] [place] [address] Nov, [facility] [place] [facility] [address] [id number] [place] [address] Nov, [facility] [place] [facility] [address] [id number] [place] [address] Nov, [facility] [place] [facility] [address] [id number] [place] [address] Nov, [facility] [place] [facility] [address] [id number] [place] [address] Nov, [facility] [place] [facility] [address] [id number] [place] [address] Nov, [facility] [place] [facility] [address] [id number] [place] [address] Nov, [facility] [place] [facility] [address] [facility] [id number] [place] [address] Nov, [facility] [place] [facility] [address] [id number] [place] [address] Nov, [facility] [place] [facility] [address] [id number], [place] [address] Nov, [facility] [place] [facility] [address] [id number] [place] [address] Nov, [facility] [place] [facility] [address] [id number] [place] [address] Oct, [facility] [place] [facility] [address] [id number] [place] [address] Oct, [facility] [place] [facility] [address] [id number] [place] [address] Oct, [facility] [place] [facility] [address] [id number] [place] [address] Oct, [facility] [place] [facility] [address] [id number] [place] [address] Sep, [facility] [place] [facility] [address] [id number] [place] [address] Sep, [facility] [place] [facility] [address] [id number] [place] [address] Sep, [facility] [place] [facility] [address] [id number] [place] [address] Sep, [facility] [place] [facility] [address] [id number] [place] [address] Aug, [facility] [place] [facility] [address] [id number] [place] [address] Aug, [facility] [place] [facility] [address] [id number] [place] [address] Aug, [facility] [place] [facility] [address] [id number] [place] [address] Aug, [facility] [place] [facility] [address] [id number] [place] [address] Aug, [facility] [place] [facility] [address] [id number] [place] [address] Aug, [facility] [place] [facility] [address] [id number] [place] [address] Aug, [facility] [place] [facility] [address] [id number] [place] [address] Aug, [facility] [place] [facility] [address] [id number] [place] [address] Jul, [facility] [place] [facility] [address] [id number] [place] [address] 27 Sep, 2012 [facility] [place] [facility] [address] [id number] [place] [address] 26 Sep, 2012 [facility] [place] [facility] [address] [id number] [place] [address] 24 Sep, 2012 [facility] [place] [facility] [address] [id number] [place] [address] 24 Jul, 2012 [facility] [place] [facility] [address] [id number] [place] [address] 23 Jul, 2012 [facility] [place] [facility] [address] [id number] [place] [address] 19 Sep, 2012 [facility] [place] [facility] [address] [id number] [place] [address] 18 Jul, 2012 [facility] [place] [facility] [address] [id number] [place] [address] 17 Jul, 2012 [facility] [place] [facility] [address] [id number] [place] [address] 16 Jul, 2012 [facility] [place] [facility] [address] [id number] [place] [address] 13 Jul, 2012 [facility] [place] [facility] [address] [id number] [place] [address] 13 Jul, 2012 [facility] [place] [facility] [address] [id number], [place] [address] 12 Jul, 2012 [facility] [place] [facility] [address] [id number], [place] [address] 11 Jul, 2012 [facility] [place] [facility] [address] [id number] [place] [address] 04 Jul, 2012 [facility] [place] [facility] [address] [id number] [place] [address] 30 Jun, 2013 [facility] [place] [facility] [address] [id number] [place] [address] 20 Jun, 2013 [facility] [place] [facility] [address] [id number] [place] [address] Jun, [facility] [address] [id number] [place] [address] May, [facility] [place] [facility] [address] [id number] [place] [address] May, [facility] [address] [id number] [place] [address] May, [facility] [place] [facility] [address] [id number] [place] [address] May, [facility] [address] [id number] [place] [address] Apr, [facility] [place] [facility] [address] [id number] [place] [address] Apr, [facility] [address] [id number] [place] [address] Apr, [facility] [place] [facility] [address] [id number] [place] [address] Apr, [facility] [place] [facility] [address] [id number] [place] [address] March, [facility] [address] [id number] [place] [address] March, [facility] [place] [facility] [address] [id number] [place] [address] March, [facility] [place] [facility] [address] [id number] [place] [address] Feb, [facility] [place] [facility] [address] [id number] [place] [address] Feb, [facility] [place] [facility] [address] [id number] [place] [address] Jan, [facility] [place] [facility] [address] [id number] [place] [address] Jan, [facility] [place] [facility] [address] [id number] [place] [address] Jan, [facility] [address] [id number] [place] [address] Jan, [facility] [address] [id number] [place] [address] Jan, [facility] [address] [id number] [place] [address] Dec, [facility] [address] [id number] [place] [address] Dec, [facility] [place] [facility] [address] [id number] [place] [address] Dec, [facility] [address] [id number] [place] [address] Dec, [facility] [address] [id number] [place] [address] Dec, [facility] [address] [id number] [place] [address] Dec, [facility] [address] [id number] [place] [address] Dec, [facility] [place] [facility] [address] [id number] [place] [address] Dec, [facility] [place] [facility] [address] [id number] [place] [address] Nov, [facility] [place] [facility] [address] [id number] [place] [address] Nov, [facility] [place] [facility] [address] [id number] [place] [address] Nov, [facility] [place] [facility] [address] [id number] [place] [address] Nov, [facility] [place] [facility] [address] [id number] [place] [address] Nov, [facility] [place] [facility] [address] [id number] [place] [address] Nov, [facility] [place] [facility] [address] [id number] [place] [address] Nov, [facility] [address] [id number] [place] [address] Oct, [facility] [place] [facility] [address] [id number] [place] [address] Oct, [facility] [place] [facility] [address] [id number] [place] [address] Oct, [facility] [place] [facility] [address] [id number] [place] [address] Oct, [facility] [address] [id number] [place] [address] Oct, [facility] [place] [facility] [address] [id number] [place] [address] Oct, [facility] [place] [facility] [address] [id number] [place] [address] Oct, [facility] [place] [facility] [address] [id number] [place] [address] Oct, [facility] [place] [facility] [address] [id number] [place] [address] Sep, [facility] [place] [facility] [address] [id number] [place] [address] Sep, [facility] [place] [facility] [address] [id number] [place] [address] Sep, [facility] [place] [facility] [address] [id number] [place] [address] Sep, [facility] [place] [facility] [address] [id number] [place] [address] Sep, [facility] [place] [facility] [address] [id number] [place] [address] Sep, [facility] [place] [facility] [address] [id number] [place] [address] Sep, [facility] [place] [facility] [address] [id number] [place] [address] Sep, [facility] [place] [facility] [address] [id number] [place] [address] Sep, [facility] [place] [facility] [address] [id number] [place] [address] Sep, [facility] [place] [facility] [address] [id number] [place] [address] Sep, [facility] [place] [facility] [address] [id number] [place] [address] Sep, [facility] [place] [facility] [address] [id number] [place] [address] Sep, [facility] [place] [facility] [address] [id number] [place] [address] Sep, [facility] [place] [facility] [address] [id number] [place] [address] Sep, [facility] [place] [facility] [address] [id number] [place] [address] Sep, [facility] [place] [facility] [address] [id number] [place] [address] Sep, [facility] [place] [facility] [address] [id number] [place] [address] Sep, [facility] [place] [facility] [address] [id number] [place] [address] Sep, [facility] [place] [facility] [address] [id number] [place] [address] Sep, [facility] [place] [facility] [address] [id number] [place] [address] 31 Aug, 2012 [facility] [place] [facility] [address] [id number] [place] [address] 31 Aug, 2012 [facility] [place] [facility] [address] [id number] [place] [address] 29 Aug, 2012 [facility] [place] [facility] [address] [id number] [place] [address] Aug, [facility] [place] [facility] [address] [id number] [place] [address] 27 Aug, 2012 [facility] [place] [facility] [address] [id number] [place] [address] 18 Aug, 2012 [facility] [place] [facility] [address] [id number] [place] [address] 18 Aug, 2012 [facility] [place] [facility] [address] [id number] [place] [address] 17 Aug, 2012 [facility] [place] [facility] [address] [id number], [place] [address] 16 Aug, 2012 [facility] [place] [facility] [address] [id number] [place] [address] 16 Aug, 2012 [facility] [place] [facility] [address] [id number] [place] [address] 15 Aug, 2012 [facility] [place] [facility] [address] [id number], [place] [address] 09 Aug, 2012 [facility] [place] [facility] [address] [id number], [place] [address] 05 Aug, 2012 [facility] [place] [facility] [address] [id number] [place] [address] 05 Aug, 2012 [facility] [place] [facility] [address] [id number], [place] [address] 04 Aug, 2012 [facility] [place] [facility] [address] [id number] [place] [address] 14 Jul, 2012 [facility] [place] [facility] [address] [id number] [place] [address] 10 Jul, 2012 [facility] [address] [id number] [place] [address] Jun, [facility] [place] [facility] [address] [id number] [place] [address] Jun, [facility] [address] [id number] [place] [address] May, [facility] [address] [id number] [place] [address] May, [facility] [address] [id number] [place] [address] May, [facility] [address] [id number] [place] [address] May, [facility] [address] [id number] [place] [address] May, [facility] [address] [id number] [place] [address] May, [facility] [address] [id number] [place] [address] Apr, [facility] [address] [id number] [place] [address] Apr, [facility] [address] [id number] [place] [address] March, [facility] [address] [id number] [place] [address] March, [facility] [place] [facility] [address] [id number] [place] [address] March, [facility] [address] [id number] [place] [address] March, [facility] [address] [id number] [place] [address] March, [facility] [address] [id number] [place] [address] March, [facility] [place] [facility] [address] [id number] [place] [address] Feb, [facility] [place] [facility] [address] [id number] [place] [address] Feb, [facility] [place] [facility] [address] [id number] [place] [address] Feb, [facility] [place] [facility] [address] [id number] [place] [address] Feb, [facility] [place] [facility] [address] [id number] [place] [address] Feb, [facility] [place] [facility] [address] [id number] [place] [address] Feb, [facility] [place] [facility] [address] [id number] [place] [address] Feb, [facility] [place] [facility] [address] [id number] [place] [address] Feb, [facility] [place] [facility] [address] [id number] [place] [address] Feb, [facility] [place] [facility] [address] [id number] [place] [address] Jan, [facility] [place] [facility] [address] [id number] [address] Jan, [facility] [place] [facility] [address] [id number] [place] [address] Jan, [facility] [place] [facility] [address] [id number] [place] [address] Jan, [facility] [place] [facility] [address] [id number] [place] [address] Jan, [facility] [place] [facility] [address] [id number], [place] [address] 20 Jan, 2012 [facility] [place] [facility] [address] [id number] [place] [address] 14 Jan, 2012 [facility] [place] [facility] [address] [id number] [place] [address] 09 Jan, 2012 [facility] [place] [facility] [address] [facility] [id number] [place] [address] 09 Jan, 2012 [facility] [place] [facility] [address] [facility] [id number] [place] [address] 08 Jan, 2012 [facility] [place] [facility] [address] [id number] [place] [address] 07 Jan, 2012 [facility] [place] [facility] [address] [facility] [id number] [place] [address] 06 Jan, 2012 [facility] [place] [facility] [id number] [address] Jan, [facility] [place] [facility] [address] [facility] [id number] [place] [address] Jan, [facility] [place] [facility] [id number] [address] 28 Dec, 2011 [facility] [place] [facility] [id number] [address] 27 Dec, 2011 [facility] [place] [facility] [id number] [address] 25 Dec, 2011 [facility] [place] [facility] [address] [facility] [id number] [place] [address] 23 Dec, 2011 [facility] [place] [facility] [address] [facility] [id number] [place] [address] 16 Dec, 2011 [facility] [place] [facility] [address] [facility] [id number] [place] [address] 08 Dec, 2011 [facility] [place] [facility] [id number] [address] 08 Dec, 2011 [facility] [address] [id number] [place] [address] Dec, [facility] [place] [facility] [address] [id number] [place] [address] Dec, [facility] [place] [facility] [address] [id number] [place] [address] Nov, [facility] [place] [facility] [address] [id number] [place] [address] Nov, [facility] [address] [id number] [place] [address] Nov, [facility] [place] [facility] [address] [id number] [place] [address] Nov, [facility] [place] [facility] [address] [id number] [place] [address] Oct, [facility] [place] [facility] [address] [id number] [place] [address] Oct, [facility] [place] [facility] [address] [id number] [place] [address] Oct, [facility] [place] [facility] [address] [id number] [place] [address] Oct, [facility] [place] [facility] [address] [id number] [place] [address] Oct, [facility] [place] [facility] [address] [id number] [address] Oct, [facility] [place] [facility] [address] [id number] [place] [address] Oct, [facility] [place] [facility] [address] [id number] [place] [address] Sep, [facility] [place] [facility] [address] [id number] [place] [address] Sep, [facility] [place] [facility] [address] [id number] [place] [address] Sep, [facility] [place] [facility] [address] [id number] [place] [address] Sep, [facility] [place] [facility] [address] [id number] [place] [address] Sep, [facility] [place] [facility] [address] [id number] [place] [address] Sep, [facility] [place] [facility] [address] [id number] [place] [address] Sep, [facility] [place] [facility] [address] [id number] [place] [address], [place] [address] Sep, [facility] [place] [facility] [address] [id number] [place] [address] Sep, [facility] [place] [facility] [address] [id number] [place] [address] Aug, [facility] [place] [facility] [address] [id number] [place] [address] Aug, [facility] [place] [facility] [address] [id number] [place] [address] Aug, [facility] [place] [facility] [address] [id number] [place] [address] May, [facility] [place] [facility] [address] [id number] [place] [address] Nov, [facility] [place] [facility] [address] [id number], [place] [address] Oct, [facility] [place] [facility] [address] [id number] [place] [address] Oct, [facility] [place] [facility] [address] [id number] [place] [address] Oct, [facility] [place] [facility] [address] [facility] [id number] [place] [address] Oct, [facility] [place] [facility] [address] [id number] [place] [address] Oct, [facility] [place] [facility] [address] [id number] [place] [address] 03 Sep, 2010 [facility] [place] [facility] [address] [id number] [place] [address] 02 Sep, 2010 [facility] [place] [facility] [address] [id number] [place] [address] 14 Jul, 2010 [facility] [place] [facility] [address] [id number] [place] [address] 31 Oct, 2009 [facility] [place] [facility] [address] [id number] [place] [address] Oct, [facility] [place] [facility] [address] [facility] [id number] [place] [address] Oct, [facility] [place] [facility] [address] [id number] [place] [address] Oct, [facility] [place] [facility] [address] [id number] [place] [address] 30 Sep, 2009 [facility] [place] [facility] [address] [id number] [place] [address] 13 Sep, 2009 [facility] [place] [facility] [address] [facility] [id number] [place] [address] 13 Sep, 2009 [facility] [place] [facility] [address] [id number] [place] [address] 04 Sep, 2009 [facility] [place] [facility] [address] [id number] [place] [address] 03 Sep, 2009 [facility] [place] [facility] [address] [id number] [place] [address] 11 Jul, 2009 [facility] [place] [facility] [address] [id number], [place] [address] 10 Apr, 2009 [facility] [place] [facility] [address] [id number], [place] [address] 12 Dec, 2008 IMMUNIZATIONS No Known Immunizations [...]
--- NOTE | 2019-06-30 18:10 | ED Cough/URI ---
General Chief Complaint: Respiratory Problems Stated Complaint: SOB Nursing Triage Note: PT TO ROOM SIX VIA EMS WITH CO SOA STARTING A THIS MORNING. PT WAS RECENTLY IN HOSP FOR PNEUMONIA. Sepsis Screen: Possible Sepsis Risk Source: patient, EMS Exam Limitations: no limitations History of Present Illness Date Seen by Provider: Jun 30, 2019 Time Seen by Provider: 18:09 Initial Comments COPD patient presents per EMS from home with reports of shortness of breath getting worse over the past few days. She also reports lower abdominal pain which is a chronic issue for her. On arrival EMS noted oxygen saturation to be 81%, they initiated DuoNeb treatment sats increased subsequently to about 95%. Timing/Duration: just prior to arrival, week, getting worse Severity/Quality: dry cough Prior Episodes/Possible Cause: no prior episodes Associated Symptoms: cough, shortness of breath, wheezing Allergies and Home Medications Allergies Coded Allergies: Penicillins (Verified Allergy, Mild, Hives, 07/23/18) Uuwutwb-Ncd-Qyi Reductase Inhibitor (Verified Allergy, Unknown, TAKES ATORVASTATIN AT HOME, 06/15/19) amlodipine besylate (Verified Allergy, Unknown, TAKES AMLODIPINE AT HOME, 06/15/19) benazepril HCl (Verified Allergy, Unknown, 07/23/18) aspirin (Verified Adverse Reaction, Mild, Nausea, 07/23/18) codeine (Verified Adverse Reaction, Mild, Nausea, 07/23/18) tramadol (Verified Adverse Reaction, Mild, N/V, 07/23/18) Home Medications Acetaminophen 500 Mg Tablet, 1,000 MG PO Q6H PRN for PAIN-MODERATE, (Reported) Albuterol Sulfate 1 Puff Puff, 2 PUFF IH Q4H PRN for SHORTNESS OF BREATH, (Reported) Albuterol Sulfate 2.5 Mg/3 Ml Vial.neb, 2.5 MG NEB TID PRN for SHORTNESS OF BREATH, (Reported) Amlodipine Besylate 5 Mg Tablet, 5 MG PO DAILY, (Reported) Atorvastatin Calcium 40 Mg Tablet, 40 MG PO HS, (Reported) Baclofen 10 Mg Tablet, 10 MG PO TID PRN for MUSCLE SPASMS, (Reported) Brexpiprazole 2 Mg Tablet, 2 MG PO DAILY, (Reported) Budesonide/Formoterol Fumarate 10.2 Gm Hfa.aer.ad, 2 PUFF IH BID, (Reported) Cetirizine HCl 10 Mg Tab.chew, 10 MG PO DAILY, (Reported) Cyclobenzaprine HCl 10 Mg Tablet, 10 MG PO TID PRN for MUSCLE SPASMS, (Reported) Diphenoxylate HCl/Atropine 1 Each Tablet, 1 TAB PO QID PRN for DIARRHEA, (Reported) Duloxetine HCl 60 Mg Capsule.dr, 60 MG PO DAILY, (Reported) Fesoterodine Fumarate 8 Mg Tab.er.24h, 8 MG PO DAILY, (Reported) Fluoxetine HCl 40 Mg Capsule, 40 MG PO DAILY, (Reported) Gabapentin 600 Mg Tablet, 1,200 MG PO BID, (Reported) TAKES 2 (600MG) TABLETS Hydrocodone Bit/Acetaminophen 1 Tab Tab, 1 EACH PO Q4-6HR PRN for PAIN-MODERATE Prescribed by: MARLA MAZARIEGOS on 06/24/191357 L.acidoph & Paracasei,B.lactis 1 Each Capsule, 1 EACH PO TIDPC Prescribed by: MARLA MAZARIEGOS on 06/24/191357 Levofloxacin 750 Mg Tablet, 750 MG PO DAILY Prescribed by: THOMPSON QURESHI on 06/30/191905 Levothyroxine Sodium 50 Mcg Tablet, 50 MCG PO DAILY, (Reported) Metformin HCl 500 Mg Tablet, 500 MG PO BID, (Reported) Metoprolol Tartrate 25 Mg Tablet, 25 MG PO BID, (Reported) Mirtazapine 15 Mg Tablet, 15 MG PO HS, (Reported) Montelukast Sodium 10 Mg Tablet, 10 MG PO 1700, (Reported) Naproxen 500 Mg Tablet, 500 MG PO BID PRN for PAIN-MILD, (Reported) Ondansetron 4 Mg Tab.rapdis, 4 MG PO Q4H PRN for NAUSEA/VOMITING-1ST LINE, (Repo rted) Ondansetron 4 Mg Tab.rapdis, 4 MG SL Q4H PRN for NAUSEA/VOMITING Prescribed by: MARLA MAZARIEGOS on 06/24/191357 Pantoprazole Sodium 40 Mg Tablet.dr, 40 MG PO DAILY, (Reported) Prednisone 20 Mg Tab, 40 MG PO DAILY Prescribed by: THOMPSON QURESHI on 06/30/191905 Tiotropium [place] 1 Inh Aerp, 1 CAP IH DAILY, (Reported) Tramadol HCl 50 Mg Tablet, 50 MG PO BID PRN for PAIN-MODERATE, (Reported) Trazodone HCl 100 Mg Tablet, 100 MG PO HS, (Reported) Patient Home Medication List Home Medication List Reviewed: Yes Review of Systems Review of Systems Constitutional: see HPI; No fever EENTM: see HPI Respiratory: see HPI, cough Cardiovascular: no symptoms reported Genitourinary: no symptoms reported Musculoskeletal: no symptoms reported Skin: no symptoms reported Psychiatric/Neurological: No Symptoms Reported Past Gajhwym-Lgqtmn-Ahxqfl Hx Patient Social History Type Used: Cigarettes Former Smoker, Quit: Jun 27, 2018 Recent Foreign Travel: No Contact w/Someone Who Travel: No Recent Infectious Disease Expo: No Recent Hopitalizations: Yes Immunizations Up To Date Tetanus Booster (TDap): Less than 5yrs Date of Pneumonia Vaccine: Jul 10, 2011 Date of Influenza Vaccine: Aug 20, 2018 Seasonal Allergies Seasonal Allergies: No Past Medical History Surgeries: Yes (CARPALTUNAL) Amputation, Orthopedic, Vascular Surgery Respiratory: Yes ( O2 2L/NC @ NOC) Asthma, COPD, Emphysema Currently Using CPAP: No Currently Using BIPAP: No Cardiac: Yes (CARDIAC CATHS-STENT X 1; LBBB) Aneurysm, Heart Attack, Hypertension Neurological: Yes Headaches /Migraines : No 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 Disorders: No 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 Disorders: Denies 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, 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 Sexually Transmitted Disease: No HIV/AIDS: No Genitourinary: Yes (BLADDER SUSPENSION) Bladder Infection Gastrointestinal: No Gastroesophageal Reflux Musculoskeletal: Yes Amputee Endocrine: Yes Diabetes, Non-Insulin dep HEENT: No Loss of Vision: Bilateral Hearing Impairment: Denies Cancer: No Psychosocial: Yes Anxiety, Depression Integumentary: No Blood Disorders: Yes (ANEMIA) Adverse Reaction/Blood Tranf: No (N/A) Family Medical History Arthritis Diabetes mellitus Hypertension No Pertinent Family Hx Patient reports she does not know Physical Exam Vital Signs - First Documented 06/30/19 18:02 Temp 100.6 Pulse 89 Resp 22 B/P (MAP) 126/91 (103) Pulse Ox 92 O2 Delivery Nasal Cannula O2 Flow Rate 3.00 Capillary Refill : Less Than 3 Seconds Height: 5'7.00" Weight: 182lbs. 0.0oz. 82.155701zb; 28.5 BMI Method:Stated General Appearance: WD/WN, no apparent distress Eyes: Bilateral Eye Normal Inspection HEENT: PERRL/EOMI, normal ENT inspection Respiratory: no respiratory distress, no accessory muscle use Cardiovascular: regular rate, rhythm, no murmur Gastrointestinal: normal bowel sounds, non tender, soft Neurologic/Psychiatric: alert, normal mood/affect, oriented x 3 Skin: normal color, warm/dry Focused Exam Lactate Level 06/30/19 18:05: Lactic Acid Level 1.10 Lactic Acid Level Laboratory Tests Test 06/30/19 18:05 Lactic Acid Level 1.10 MMOL/L (0.50-2.00) Progress/Results/Core Measures Suspected Sepsis Recent Fever Within 48 Hours: Yes Infection Criteria Present: Suspected New Infection New/Unexplained Altered Menta: No Sepsis Screen: Possible Sepsis Risk SIRS Temperature:100.6 Pulse: 89 Respiratory Rate: 22 Laboratory Tests 06/30/19 18:05: White Blood Count 10.6 Blood Pressure 126 /91 Mean: 103 06/30/19 18:05: Lactic Acid Level 1.10 Laboratory Tests 06/30/19 18:05: Creatinine 0.84, Platelet Count 644H, Total Bilirubin 0.2 Results/Orders Lab Results Laboratory Tests Test 06/30/19 18:05 06/30/19 18:20 Range/Units White Blood Count 10.6 4.3-11.0 10^3/uL Red Blood Count 4.72 4.35-5.85 10^6/uL Hemoglobin 10.1 L 11.5-16.0 G/DL Hematocrit 36 35-52 % Mean Corpuscular Volume 77 L 80-99 FL Mean Corpuscular Hemoglobin 21 L 25-34 PG Mean Corpuscular Hemoglobin Concent 28 L 32-36 G/DL Red Cell Distribution Width 21.0 H 10.0-14.5 % Platelet Count 644 H 130-400 10^3/uL Mean Platelet Volume 10.0 7.4-10.4 FL Neutrophils (%) (Auto) 60 42-75 % Lymphocytes (%) (Auto) 20 12-44 % Monocytes (%) (Auto) 18 H 0-12 % Eosinophils (%) (Auto) 2 0-10 % Basophils (%) (Auto) 0 0-10 % Neutrophils # (Auto) 6.3 1.8-7.8 X 10^3 Lymphocytes # (Auto) 2.2 1.0-4.0 X 10^3 Monocytes # (Auto) 1.9 H 0.0-1.0 X 10^3 Eosinophils # (Auto) 0.2 0.0-0.3 10^3/uL Basophils # (Auto) 0.0 0.0-0.1 10^3/uL Sodium Level 142 135-145 MMOL/L Potassium Level 4.2 3.6-5.0 MMOL/L Chloride Level 108 H 98-107 MMOL/L Carbon Dioxide Level 24 21-32 MMOL/L Anion Gap 10 5-14 MMOL/L Blood Urea Nitrogen 17 7-18 MG/DL Creatinine 0.84 0.60-1.30 MG/DL Estimat Glomerular Filtration Rate > 60 BUN/Creatinine Ratio 20 Glucose Level 109 H 70-105 MG/DL Lactic Acid Level 1.10 0.50-2.00 MMOL/L Calcium Level 8.3 L 8.5-10.1 MG/DL Corrected Calcium 9.5 8.5-10.1 MG/DL Total Bilirubin 0.2 0.1-1.0 MG/DL Aspartate Amino Transf (AST/SGOT) 13 5-34 U/L Alanine Aminotransferase (ALT/SGPT) 8 0-55 U/L Alkaline Phosphatase 87 40-136 U/L B-Type Natriuretic Peptide 94.7 <100.0 PG/ML Total Protein 6.5 6.4-8.2 GM/DL Albumin 2.5 L 3.2-4.5 GM/DL Blood Gas Puncture Site RIGHT RADIAL Blood Gas Patient Temperature 100.6 Arterial Blood pH 7.32 *L 7.37-7.43 Arterial Blood Partial Pressure CO2 51 H 35-45 MMHG Arterial Blood Partial Pressure O2 66 L 79-93 MMHG Arterial Blood HCO3 25 23-27 MMOL/L Arterial Blood Total CO2 26.6 21.0-31.0 MMOL/L Arterial Blood Oxygen Saturation 92 L 94-100 % Arterial Blood Base Excess 0.1 -2.5-2.5 MMOL/L Rigo Test POSITIVE Blood Gas Ventilator Setting NO Blood Gas Inspired Oxygen N/A My Orders Orders - THOMPSON QURESHI DONOR SERVICES COORDINATOR Cbc With Automated Diff (06/30/19 18:04) Comprehensive Metabolic Panel (06/30/19 18:04) Blood Culture (06/30/19 18:04) Lactic Acid Analyzer (06/30/19 18:04) Chest 1 View, Ap/Pa Only (06/30/19 18:04) Ed Iv/Invasive Line Start (06/30/19 18:04) Albuterol Pre-Mix Nebs (Rt) (Proventil (06/30/19 18:15) Svn Small Volume Nebulizer (06/30/19 18:10) Ns Iv 1000 Ml (Sodium Chloride 0.9%) (06/30/19 18:15) Hyoscyamine Sl Tablet (Levsin Sl Tablet) (06/30/19 18:15) Ekg Tracing (06/30/19 18:18) BNP (06/30/19 18:18) Arterial Blood Gas (06/30/19 18:21) Ua Culture If Indicated (06/30/19 18:41) Drug Screen Stat (Urine) (06/30/19 18:41) Communication For Respiratory (06/30/19 18:51) Levofloxacin Tablet (Levaquin Tablet) (06/30/19 19:15) Prednisone Tablet (Deltasone Tablet) (06/30/19 19:15) Levofloxacin Tablet (Levaquin Tablet) (06/30/19 19:06) Medications Given in ED Current Medications Medications Dose Ordered Sig/Betty Route Start Time Stop Time Status Last Admin Dose Admin Hyoscyamine Sulfate 0.25 mg ONCE ONCE PO 06/30/19 18:15 06/30/19 18:16 DC 06/30/19 18:26 0.25 MG Levofloxacin 750 mg ONCE ONCE PO 06/30/19 19:15 06/30/19 19:16 DC 06/30/19 19:15 750 MG Prednisone 40 mg ONCE ONCE PO 06/30/19 19:15 06/30/19 19:16 DC 06/30/19 19:17 40 MG Vital Signs/I&O 06/30/19 06/30/19 06/30/19 18:02 18:42 19:20 Temp 100.6 99.5 Pulse 89 85 Resp 22 20 B/P (MAP) 126/91 (103) 135/71 (92) Pulse Ox 92 94 94 O2 Delivery Nasal Cannula Nasal Cannula Nasal Cannula O2 Flow Rate 3.00 4.00 4.00 Capillary Refill : Less Than 3 Seconds Blood Pressure Mean: 103 Diagnostic Imaging Diagonstic Imaging: Xray Plain Films/CT/US/NM/MRI: chest Comments NAME: [facility]ULIK [facility]DE [facility] REC#: [id number] PT STATUS: REG ER : 1965 PHYSICIAN: THOMPSON QURESHI APRN ADMIT DATE: 06/30/19/ER Draft Date of Exam:06/30/19 CHEST 1 VIEW, AP/PA ONLY INDICATION: Pneumonia. COMPARISON: 06/24/2019. EXAMINATION: Single view of the chest was obtained. FINDINGS: There are bilateral infiltrates in the lung bases increased from prior. There are background COPD and prominence of the central vascularity, unchanged. No pneumothorax. IMPRESSION: Lower lobe infiltrates similar if not mildly worsened from prior. Underlying COPD and prominence of the central pulmonary arterial structures, unchanged. No pneumothorax or evidence for pleural fluid. Dictated on workstation # [id number] Dict: 06/30/19 1846 Trans: 06/30/19 185 PJ [id number] Interpreted by: RAISA CARRERA Electronically signed by: Departure Communication (Admissions) Patient requests something for pain. Offered her Tylenol Motrin or aspirin, she shakes her head "no". Time of discharge patient goes to the parking lot and begins smoking a cigarette immediately. Impression Primary Impression: COPD (chronic obstructive pulmonary disease) Qualified Codes: J42 - Unspecified chronic bronchitis Disposition: HOME, SELF-CARE Condition: Stable Departure-Patient Inst. Decision time for Depature: 19:05 Ref[place]: [facility] [place] Primary Care Physician Patient Instructions: Exacerbation of COPD (DC) Add. Discharge Instructions: 1. Steroids and antibiotics as directed 2. Return to ER for any concerns and 3. See your doctor next week for recheck. All discharge instructions reviewed with patient and/or family. Voiced understanding. Scripts Levofloxacin (Levaquin) 750 Mg Tablet 750 MG PO DAILY, #5 TAB Prov: THOMPSON QURESHI APRN 06/30/19 Prednisone (Prednisone) 20 Mg Tab 40 MG PO DAILY, #6 TAB 0 Refills Prov: THOMPSON QURESHI APRN 06/30/19 THOMPSON QURESHI APRN Jun 30, 2019 18:10
[2019-06-30] MEDS ORDERED: RT-ALBUTEROL SULF 2.5 MG/3 ML PRE-MIX VIAL INH SCH (18:15)
[2019-06-30] MEDS ORDERED: HYOSCYAMINE 0.125 MG (LEVSIN) TAB PO ONE (18:15)
[2019-06-30] MEDS ORDERED: NS IV 1000 ML 1,000 ML IV SCH (18:15)
[2019-06-30 18:21] LABS: BASOPHILS % (AUTO) 0 % (0-10); EOSINOPHILS # (AUTO) 0.2 10^3/uL (0.0-0.3); EOSINOPHILS % (AUTO) 2 % (0-10); HEMATOCRIT 36 % (35-52); HEMOGLOBIN 10.1 G/DL (11.5-16.0); LYMPHOCYTES # (AUTO) 2.2 X 10^3 (1.0-4.0); LYMPHOCYTES % (AUTO) 20 % (12-44); MEAN CORPUSCULAR HEMOGLOBIN 21 PG (25-34); MEAN CORPUSCULAR HGB CONC 28 G/DL (32-36); MEAN CORPUSCULAR VOLUME 77 FL (80-99); MONOCYTES # (AUTO) 1.9 X 10^3 (0.0-1.0); MONOCYTES % (AUTO) 18 % (0-12); NEUTROPHILS # (AUTO) 6.3 X 10^3 (1.8-7.8); NEUTROPHILS % (AUTO) 60 % (42-75); PLATELET COUNT 644 10^3/uL (130-400); WHITE BLOOD COUNT 10.6 10^3/uL (4.3-11.0)
[2019-06-30 18:31] LABS: ABG BASE EXCESS 0.1 MMOL/L (-2.5-2.5); ABG OXYGEN SATURATION 92 % (94-100); ABG PCO2 51 MMHG (35-45); ABG PO2 66 MMHG (79-93); ABG TCO2 26.6 MMOL/L (21.0-31.0)
[2019-06-30 18:32] LABS: ABG PH 7.32 (7.37-7.43); ALLENS TEST POSITIVE; PATIENT TEMP 100.6; VENTILATOR NO
[2019-06-30 18:35] LABS: ALANINE AMINOTRANSFERASE 8 U/L (0-55); ALBUMIN 2.5 GM/DL (3.2-4.5); ALKALINE PHOSPHATASE 87 U/L (40-136); BILIRUBIN,TOTAL 0.2 MG/DL (0.1-1.0); BUN/CREATININE RATIO 20; CALCIUM 8.3 MG/DL (8.5-10.1); CARBON DIOXIDE 24 MMOL/L (21-32); CHLORIDE 108 MMOL/L (98-107); CREATININE SERUM 0.84 MG/DL (0.60-1.30); GFR ESTIMATED > 60; GLUCOSE 109 MG/DL (70-105); POTASSIUM 4.2 MMOL/L (3.6-5.0); SODIUM 142 MMOL/L (135-145); TOTAL PROTEIN 6.5 GM/DL (6.4-8.2)
--- NOTE | 2019-06-30 18:53 | Diagnostic Imaging Report ---
INDICATION: Pneumonia. COMPARISON: 06/24/2019. EXAMINATION: Single view of the chest was obtained. FINDINGS: There are bilateral infiltrates in the lung bases increased from prior. There are background COPD and prominence of the central vascularity, unchanged. No pneumothorax. IMPRESSION: Lower lobe infiltrates similar if not mildly worsened from prior. Underlying COPD and prominence of the central pulmonary arterial structures, unchanged. No pneumothorax or evidence for pleural fluid. Dictated by: Dictated on workstation # [id number]
[2019-06-30] MEDS ORDERED: LEVOFLOXACIN 500 MG TAB (LEVAQUIN) ONE (19:06)
[2019-06-30] MEDS ORDERED: LEVO750T9 PO (19:06)
[2019-06-30] MEDS ORDERED: PRD20T PO (19:06)
[2019-06-30] MEDS ORDERED: LEVOFLOXACIN 750 MG TAB (LEVAQUIN) PO ONE (19:15)
[2019-06-30] MEDS ORDERED: predniSONE 20 MG TAB PO ONE (19:15)
[2019-06-30 19:20] VITALS: BP 135/71
== END 2019-06-30 19:20 | disposition home or self-care (01) ==
LOC: EDUNIT# 17:58 → ER 17:59
DX: J44.9 Chronic obstructive pulmonary disease, unspecified (principal); I10 Essential (primary) hypertension; E11.9 Type 2 diabetes mellitus without complications; I25.2 Old myocardial infarction; G43.909 Migraine, unspecified, not intractable, without status migrainosus; K21.9 Gastro-esophageal reflux disease without esophagitis; F41.9 Anxiety disorder, unspecified; F32.9 Major depressive disorder, single episode, unspecified; D64.9 Anemia, unspecified; Z88.0 Allergy status to penicillin; Z88.6 Allergy status to analgesic agent; Z88.5 Allergy status to narcotic agent; Z88.8 Allergy status to other drugs, medicaments and biological substances; Z87.891 Personal history of nicotine dependence; Z90.710 Acquired absence of both cervix and uterus; Z87.09 Personal history of other diseases of the respiratory system
CPT/HCPCS: 36415; 71045; 80053; 82805; 83605; 83880; 85025; 87040; 93005; 94640; 96360

== ENCOUNTER → 2019-07-14 | Outpatient (CLI) | payer MEDICAID ==
[~2019-07-14] MED LIST changes: +BUDE10.2 INH; +HYDR50TA76 PO; +LEVO750T9 PO; +VILA40TA PO
[2019-07-14 14:17] LABS: BASOPHILS % (AUTO) 0 % (0-10); EOSINOPHILS # (AUTO) 0.1 10^3/uL (0.0-0.3); EOSINOPHILS % (AUTO) 1 % (0-10); HEMATOCRIT 34 % (35-52); HEMOGLOBIN 9.9 G/DL (11.5-16.0); LYMPHOCYTES # (AUTO) 1.6 X 10^3 (1.0-4.0); LYMPHOCYTES % (AUTO) 10 % (12-44); MEAN CORPUSCULAR HEMOGLOBIN 21 PG (25-34); MEAN CORPUSCULAR HGB CONC 29 G/DL (32-36); MEAN CORPUSCULAR VOLUME 73 FL (80-99); MEAN PLATELET VOLUME 10.2 FL (7.4-10.4); MONOCYTES % (AUTO) 7 % (0-12); NEUTROPHILS # (AUTO) 12.9 X 10^3 (1.8-7.8); NEUTROPHILS % (AUTO) 82 % (42-75); PLATELET COUNT 315 10^3/uL (130-400); RED CELL DISTRIBUTION WIDTH 22.4 % (10.0-14.5); WHITE BLOOD COUNT 15.7 10^3/uL (4.3-11.0)
[2019-07-14 14:47] LABS: ANISOCYTOSIS MARKED; BAND NEUTROPHILS 0 %; BASOPHILS % (MANUAL) 0 %; EOSINOPHILS % (MANUAL) 2 %; HYPOCHROMASIA SLIGHT; LYMPHOCYTES % (MANUAL) 11 %; MICROCYTOSIS SLIGHT; MONOCYTES % (MANUAL) 5 %; NEUTROPHILS % (MANUAL) 82 %; POLYCHROMASIA SLIGHT
--- NOTE | 2019-07-14 18:06 | Diagnostic Imaging Report ---
INDICATION: Pneumonia, COPD, sleep disorder, and tobacco use. Comparison made with prior examination from 06/30/2019. FINDINGS: There is cardiomegaly. There is some bibasilar atelectasis and/or pneumonitis. There is no pleural effusion or pneumothorax. Mediastinum is unremarkable. IMPRESSION: Bibasilar atelectasis and/or pneumonitis. Cardiomegaly. Dictated by: Dictated on workstation # [id number]
== END ==
LOC: RAD 14:03
PROVIDERS: ATTEND Nurse Practitioner Family
DX: J18.9 Pneumonia, unspecified organism (principal); J44.9 Chronic obstructive pulmonary disease, unspecified; G47.50 Parasomnia, unspecified; R91.8 Other nonspecific abnormal finding of lung field; G47.36 Sleep related hypoventilation in conditions classified elsewhere; G47.10 Hypersomnia, unspecified; Z72.0 Tobacco use
CPT/HCPCS: 36415; 71046; 85007; 85027

== ENCOUNTER 2019-07-17 13:19 | Inpatient (IN) | payer MEDICAID ==
[~2019-07-17] VITALS: Ht 170.2 cm; Wt 87.5 kg
[2019-07-17] VITALS (8 sets, daily range): BP systolic 117–166; BP diastolic 61–111
[~2019-07-17 13:19] MED LIST changes: -BUDE10.2 INH; -HYDR50TA76 PO; -VILA40TA PO
[2019-07-17 13:44] LABS: BASOPHILS % (AUTO) 0 % (0-10); EOSINOPHILS # (AUTO) 0.1 10^3/uL (0.0-0.3); EOSINOPHILS % (AUTO) 0 % (0-10); HEMATOCRIT 37 % (35-52); HEMOGLOBIN 11.3 G/DL (11.5-16.0); LYMPHOCYTES # (AUTO) 1.5 X 10^3 (1.0-4.0); LYMPHOCYTES % (AUTO) 5 % (12-44); MEAN CORPUSCULAR HEMOGLOBIN 22 PG (25-34); MEAN CORPUSCULAR HGB CONC 30 G/DL (32-36); MEAN CORPUSCULAR VOLUME 71 FL (80-99); MEAN PLATELET VOLUME 10.5 FL (7.4-10.4); MONOCYTES # (AUTO) 2.3 X 10^3 (0.0-1.0); MONOCYTES % (AUTO) 8 % (0-12); NEUTROPHILS # (AUTO) 23.4 X 10^3 (1.8-7.8); NEUTROPHILS % (AUTO) 86 % (42-75); PLATELET COUNT 497 10^3/uL (130-400); RED CELL DISTRIBUTION WIDTH 22.6 % (10.0-14.5); WHITE BLOOD COUNT 27.3 10^3/uL (4.3-11.0)
[2019-07-17 14:03] LABS: ALBUMIN 2.7 GM/DL (3.2-4.5); BILIRUBIN,TOTAL 0.5 MG/DL (0.1-1.0); CALCIUM 8.6 MG/DL (8.5-10.1); CREATININE SERUM 1.24 MG/DL (0.60-1.30); POTASSIUM 5.1 MMOL/L (3.6-5.0); TOTAL PROTEIN 6.9 GM/DL (6.4-8.2)
[2019-07-17 14:28] LABS: ANISOCYTOSIS SLIGHT; HYPOCHROMASIA SLIGHT; LYMPHOCYTES % (MANUAL) 7 %; MICROCYTOSIS SLIGHT; MONOCYTES % (MANUAL) 3 %; NEUTROPHILS % (MANUAL) 90 %; POLYCHROMASIA SLIGHT
[2019-07-17 14:46] LABS: BILIRUBIN,URINE 1+ (NEGATIVE); CLARITY,URINE VERY CLOUDY; COLOR,URINE YELLOW; GLUCOSE, URINE (UA) NEGATIVE (NEGATIVE); KETONES,URINE 1+ (NEGATIVE); LEUKOCYTE ESTERASE ,URINE 3+ (NEGATIVE); NITRITE,URINE POSITIVE (NEGATIVE); PH,URINE 8 (5-9); PROTEIN,URINE 2+ (NEGATIVE); UROBILINOGEN,URINE NORMAL (NORMAL)
[2019-07-17] MEDS ORDERED: NS IV 1000 ML 1,000 ML IV ONE ×3 (14:56→16:45)
[2019-07-17 15:10] LABS: BACTERIA,URINE LARGE /HPF; WBC,URINE TNTC /HPF
[2019-07-17] MEDS ORDERED: MEROPENEM 1,000 MG in WATER (STERILE) FOR INJECTION 20 ML IV ONE (15:30)
--- NOTE | 2019-07-17 15:41 | ED General ---
General Chief Complaint: Abdominal/GI Problems Stated Complaint: DIARRHEA/VOMITING/ABD PAIN Nursing Triage Note: pt states feeling weak for 2 days. pt had pnuemonia 2 weeks ago. pt states having burning and pain with urination and abd pain. pt states vomiting x3 today and reports all day diarrhea. pt states history of chf and asthma. pt self reports a 100F FEVER YESTERDAY. Nursing Sepsis Screen: Possible Sepsis Risk Source of Information: Patient Exam Limitations: No Limitations History of Present Illness Date Seen by Provider: Jul 17, 2019 Time Seen by Provider: 14:28 Initial Comments This 54-year-old woman presents to the emergency room with complaints of genera lized weakness, shortness of breath, vomiting, and diarrhea. She reports having a fever yesterday. Patient was admitted June 30 with COPD exacerbation. She was seen in the ER June 24 for nausea, vomiting and diarrhea and seen again June 14 for pneumonia. She is noted to have tachycardia in the 110s during assessment. Patient reports she generally hurts all over but has no focal pain. Allergies and Home Medications Allergies Coded Allergies: Penicillins (Verified Allergy, Mild, Hives, 07/23/18) Ouxoiqb-Zwf-Ctp Reductase Inhibitor (Verified Allergy, Unknown, TAKES ATORVASTATIN AT HOME, 06/15/19) amlodipine besylate (Verified Allergy, Unknown, TAKES AMLODIPINE AT HOME, 06/15/19) benazepril HCl (Verified Allergy, Unknown, 07/23/18) aspirin (Verified Adverse Reaction, Mild, Nausea, 07/23/18) codeine (Verified Adverse Reaction, Mild, Nausea, 07/23/18) tramadol (Verified Adverse Reaction, Mild, N/V, 07/23/18) Home Medications Acetaminophen 500 Mg Tablet, 1,000 MG PO Q6H PRN for PAIN-MODERATE, (Reported) Albuterol Sulfate 1 Puff Puff, 2 PUFF IH Q4H PRN for SHORTNESS OF BREATH, (Reported) Albuterol Sulfate 2.5 Mg/3 Ml Vial.neb, 2.5 MG NEB TID PRN for SHORTNESS OF BREATH, (Reported) Amlodipine Besylate 5 Mg Tablet, 5 MG PO DAILY, (Reported) Atorvastatin Calcium 40 Mg Tablet, 40 MG PO HS, (Reported) Baclofen 10 Mg Tablet, 10 MG PO TID PRN for MUSCLE SPASMS, (Reported) Brexpiprazole 2 Mg Tablet, 2 MG PO DAILY, (Reported) Budesonide/Formoterol Fumarate 10.2 Gm Hfa.aer.ad, 2 PUFF IH BID, (Reported) Cetirizine HCl 10 Mg Tab.chew, 10 MG PO DAILY, (Reported) Cyclobenzaprine HCl 10 Mg Tablet, 10 MG PO TID PRN for MUSCLE SPASMS, (Reported) Diphenoxylate HCl/Atropine 1 Each Tablet, 1 TAB PO QID PRN for DIARRHEA, (R eported) Duloxetine HCl 60 Mg Capsule.dr, 60 MG PO DAILY, (Reported) Fesoterodine Fumarate 8 Mg Tab.er.24h, 8 MG PO DAILY, (Reported) Fluoxetine HCl 40 Mg Capsule, 40 MG PO DAILY, (Reported) Gabapentin 600 Mg Tablet, 1,200 MG PO BID, (Reported) TAKES 2 (600MG) TABLETS Hydrocodone Bit/Acetaminophen 1 Tab Tab, 1 EACH PO Q4-6HR PRN for PAIN-MODERATE Prescribed by: MARLA MAZARIEGOS on 06/24/19 135 L.acidoph & Paracasei,B.lactis 1 Each Capsule, 1 EACH PO TIDPC Prescribed by: MARLA MAZARIEGOS on 06/24/191357 Levofloxacin 750 Mg Tablet, 750 MG PO DAILY Prescribed by: THOMPSON QURESHI on 06/30/191905 Levothyroxine Sodium 50 Mcg Tablet, 50 MCG PO DAILY, (Reported) Metformin HCl 500 Mg Tablet, 500 MG PO BID, (Reported) Metoprolol Tartrate 25 Mg Tablet, 25 MG PO BID, (Reported) Mirtazapine 15 Mg Tablet, 15 MG PO HS, (Reported) Montelukast Sodium 10 Mg Tablet, 10 MG PO 1700, (Reported) Naproxen 500 Mg Tablet, 500 MG PO BID PRN for PAIN-MILD, (Reported) Ondansetron 4 Mg Tab.rapdis, 4 MG PO Q4H PRN for NAUSEA/VOMITING-1ST LINE, (Reported) Ondansetron 4 Mg Tab.rapdis, 4 MG SL Q4H PRN for NAUSEA/VOMITING Prescribed by: MARLA MAZARIEGOS on 06/24/191357 Pantoprazole Sodium 40 Mg Tablet.dr, 40 MG PO DAILY, (Reported) Prednisone 20 Mg Tab, 40 MG PO DAILY Prescribed by: THOMPSON UQRESHI on 06/30/191905 Tiotropium [place] 1 Inh Aerp, 1 CAP IH DAILY, (Reported) Tramadol HCl 50 Mg Tablet, 50 MG PO BID PRN for PAIN-MODERATE, (Reported) Trazodone HCl 100 Mg Tablet, 100 MG PO HS, (Reported) Patient Home Medication List Home Medication List Reviewed: Yes Review of Systems Review of Systems Constitutional: see HPI EENTM: no symptoms reported Respiratory: see HPI Cardiovascular: see HPI Gastrointestinal: see HPI Genitourinary: no symptoms reported : No Musculoskeletal: see HPI Skin: no symptoms reported Psychiatric/Neurological: No Symptoms Reported Hematologic/Lymphatic: No Symptoms Reported Immunological/Allergic: no symptoms reported Past Dqyfvfr-Atcxhp-Glfqbs Hx Past Med/Social Hx: Reviewed and Corrections made Patient Social History Alcohol Use: Denies Use Recreational Drug Use: No Smoking Status: Current Everyday Smoker Type Used: Cigarettes Former Smoker, Quit: Jun 27, 2018 Recent Foreign Travel: No Contact w/Someone Who Travel: No Recent Infectious Disease Expo: No Recent Hopitalizations: Yes Physical Abuse: No Sexual Abuse: No Mistreated: No Fear: No Immunizations Up To Date Tetanus Booster (TDap): Less than 5yrs Date of Pneumonia Vaccine: Jul 10, 2011 Date of Influenza Vaccine: Aug 20, 2018 Seasonal Allergies Seasonal Allergies: No Past Medical History Surgeries: Yes (CARPALTUNAL) Amputation, Orthopedic, Vascular Surgery Respiratory: Yes ( O2 2L/NC @ NOC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, 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 Sexually Transmitted Disease: No HIV/AIDS: No Genitourinary: Yes (BLADDER SUSPENSION) Bladder Infection Gastrointestinal: Yes Gastroesophageal Reflux Musculoskeletal: Yes (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 0.0oz. 82.029456gw; 28.5 BMI Method:Stated General Appearance: No Apparent Distress, WD/WN, Obese HEENT: PERRL/EOMI, Normal ENT Inspection, Pharynx Normal, Other (mucous membranes dry) Neck: Normal Inspection Respiratory: Lungs Clear, Normal Breath Sounds, No Accessory Muscle Use, No Respiratory Distress Cardiovascular: No Edema, No Murmur, Tachycardia Gastrointestinal: Normal Bowel Sounds, Non Tender, Soft Extremity: Normal Inspection, No Pedal Edema, Other (amputation right lower extremity) Neurologic/Psychiatric: Alert, Oriented x3, No Motor/Sensory Deficits, Normal Mood/Affect, cotton wringer II-XII Norm as Tested Skin: normal color, warm/dry Focused Exam Lactate Level 07/17/19 13:32: Lactic Acid Level 3.95*H 07/17/19 18:50: Lactic Acid Level Laboratory Tests Test 07/17/19 18:50 Progress/Results/Core Measures Suspected Sepsis Recent Fever Within 48 Hours: Yes Infection Criteria Present: Documented Infection New/Unexplained Altered Menta: No Sepsis Screen: Possible Sepsis Risk SIRS Temperature:98.7 Pulse: 114 Respiratory Rate: 20 Laboratory Tests 07/17/19 13:32: White Blood Count 27.3H Blood Pressure 138 /88 Mean: 105 07/17/19 13:32: Lactic Acid Level 3.95*H 07/17/19 18:50: Laboratory Tests 07/17/19 13:32: Creatinine 1.24, Platelet Count 497H, Total Bilirubin 0.5 Results/Orders Lab Results Laboratory Tests Test 07/17/19 13:32 07/17/19 14:40 07/17/19 16:53 07/17/19 18:50 Range/Units White Blood Count 27.3 H 4.3-11.0 10^3/uL Red Blood Count 5.22 4.35-5.85 10^6/uL Hemoglobin 11.3 L 11.5-16.0 G/DL Hematocrit 37 35-52 % Mean Corpuscular Volume 71 L 80-99 FL Mean Corpuscular Hemoglobin 22 L 25-34 PG Mean Corpuscular Hemoglobin Concent 30 L 32-36 G/DL Red Cell Distribution Width 22.6 H 10.0-14.5 % Platelet Count 497 H 130-400 10^3/uL Mean Platelet Volume 10.5 H 7.4-10.4 FL Neutrophils (%) (Auto) 86 H 42-75 % Lymphocytes (%) (Auto) 5 L 12-44 % Monocytes (%) (Auto) 8 0-12 % Eosinophils (%) (Auto) 0 0-10 % Basophils (%) (Auto) 0 0-10 % Neutrophils # (Auto) 23.4 H 1.8-7.8 X 10^3 Lymphocytes # (Auto) 1.5 1.0-4.0 X 10^3 Monocytes # (Auto) 2.3 H 0.0-1.0 X 10^3 Eosinophils # (Auto) 0.1 0.0-0.3 10^3/uL Basophils # (Auto) 0.0 0.0-0.1 10^3/uL Neutrophils % (Manual) 90 % Lymphocytes % (Manual) 7 % Monocytes % (Manual) 3 % Polychromasia SLIGHT Hypochromasia SLIGHT Anisocytosis SLIGHT Microcytosis SLIGHT Sodium Level 134 L 135-145 MMOL/L Potassium Level 5.1 H 3.6-5.0 MMOL/L Chloride Level 104 98-107 MMOL/L Carbon Dioxide Level 17 L 21-32 MMOL/L Anion Gap 13 5-14 MMOL/L Blood Urea Nitrogen 37 H 7-18 MG/DL Creatinine 1.24 0.60-1.30 MG/DL Estimat Glomerular Filtration Rate 45 BUN/Creatinine Ratio 30 Glucose Level 179 H 70-105 MG/DL Lactic Acid Level 3.95 *H 0.50-2.00 MMOL/L Calcium Level 8.6 8.5-10.1 MG/DL Corrected Calcium 9.6 8.5-10.1 MG/DL Total Bilirubin 0.5 0.1-1.0 MG/DL Aspartate Amino Transf (AST/SGOT) 11 5-34 U/L Alanine Aminotransferase (ALT/SGPT) 8 0-55 U/L Alkaline Phosphatase 128 40-136 U/L C-Reactive Protein High Sensitivity 20.91 H 0.00-0.50 MG/DL Total Protein 6.9 6.4-8.2 GM/DL Albumin 2.7 L 3.2-4.5 GM/DL Lipase 4 L 8-78 U/L Urine Color YELLOW Urine Clarity VERY CLOUDY H Urine pH 8 5-9 Urine Specific Orange 1.010 L 1.016-1.022 Urine Protein 2+ H NEGATIVE Urine Glucose (UA) NEGATIVE NEGATIVE Urine Ketones 1+ H NEGATIVE Urine Nitrite POSITIVE H NEGATIVE Urine Bilirubin 1+ H NEGATIVE Urine Urobilinogen NORMAL NORMAL MG/DL Urine Leukocyte Esterase 3+ H NEGATIVE Urine RBC (Auto) 5+ H NEGATIVE Urine RBC NONE /HPF Urine WBC TNTC H /HPF Urine Crystals NONE /LPF Urine Bacteria LARGE H /HPF Urine Casts NONE /LPF Urine Mucus NEGATIVE /LPF Urine Culture Indicated YES Glucometer 99 70-110 MG/DL My Orders Orders - MARLA EVERETT MD Cbc With Automated Diff (07/17/19 13:37) Comprehensive Metabolic Panel (07/17/19 13:37) Lipase (07/17/19 13:37) Ua Culture If Indicated (07/17/19 13:37) Ed Iv/Invasive Line Start (07/17/19 13:37) Manual Differential (07/17/19 13:32) Lactic Acid Analyzer (07/17/19 14:51) Hs C Reactive Protein (07/17/19 14:54) Blood Culture (07/17/19 14:54) Chest 1 View, Ap/Pa Only (07/17/19 14:54) Ed Iv/Invasive Line Start (07/17/19 14:56) Ns Iv 1000 Ml (Sodium Chloride 0.9%) (07/17/19 14:56) Urine Culture (07/17/19 14:40) Ns Iv 1000 Ml (Sodium Chloride 0.9%) (07/17/19 15:45) Meropenem (Merrem 1000 Mg) (07/17/19 15:45) Medications Given in ED Current Medications Medications Dose Ordered Sig/Betty Route Start Time Stop Time Status Last Admin Dose Admin Sodium Chloride 1,000 ml @ 0 mls/hr Q0M ONCE IV 07/17/19 14:56 07/17/19 14:57 DC 07/17/19 15:01 0 MLS/HR Vital Signs/I&O 07/17/19 07/17/19 07/17/19 07/17/19 13:28 13:28 16:14 16:26 Temp 99.6 98.7 Pulse 114 114 91 92 Resp 24 20 20 B/P (MAP) 138/88 (105) 138/88 (105) 171/86 (114) Pulse Ox 94 97 O2 Delivery Room Air Room Air Room Air 07/17/19 07/17/19 07/17/19 07/17/19 16:30 16:42 17:00 18:00 Pulse 91 93 94 Resp 21 24 27 B/P (MAP) 166/73 (104) 147/85 (105) 117/85 (96) Pulse Ox 94 95 94 O2 Delivery Nasal Cannula Nasal Cannula Nasal Cannula Nasal Cannula O2 Flow Rate 3.00 3.00 3.00 3.00 07/17/19 18:12 Pulse Ox 96 O2 Delivery Nasal Cannula O2 Flow Rate 3.00 Capillary Refill : Less Than 3 Seconds Blood Pressure Mean: 105 Progress Note : Progress Note Patient was seen and examined. IV fluids were administered. She was found to have urinary tract infection. Meropenem was started based on prior urine culture results and penicillin allergy. There were also persistent basilar lung markings suspicious for pneumonia. Septic workup was pursued with blood cultures and lactic acid.. A second liter of IV fluid was administered. Patient was admitted for further evaluation and treatment. Dr. Merino was consulted at Dr. Rincon's request. ECG Initial ECG Impression Date: Jul 17, 2019 Initial ECG Impression Time: 13:35 Initial ECG Rate: 108 Initial ECG Rhythm: S.Tach Initial ECG Intervals: Normal Initial ECG Impression: Normal Comment Sinus tachycardia with no ST elevation or depression. No abnormal intervals or axis deviation. Diagnostic Imaging Diagonstic Imaging: Xray Plain Films/CT/US/NM/MRI: chest Comments Chest x-ray viewed by me and report reviewed. See report below: NAME: MAULIK ELIZALDE [facility] REC#: [id number] PT STATUS: ADM IN : 1965 PHYSICIAN: MARLA EVERETT MD ADMIT DATE: 07/17/19/ICU Signed Date of Exam: 07/17/19 CHEST 1 VIEW, AP/PA ONLY INDICATION: Recently treated for pneumonia. Nausea, vomiting and diarrhea. EXAMINATION: Chest, 07/17/2019. COMPARISON: 07/14/2019. FINDINGS: Linear markings at the lung bases, likely chronic atelectasis or scarring. There are no new infiltrates. No effusions. No pneumothorax. Heart is stable. The pulmonary vasculature appears unchanged. IMPRESSION: Stable appearance of the chest. Persistent densities in the lung bases, unchanged. Dictated by: Dictated on workstation # [id number] Dict: 07/17/19 1519 Trans: 07/17/19 1645 Interpreted by: DUANE CISNEROS MD Electronically signed by: DUANE CISNEROS MD 07/17/19 1645 Departure Communication (Admissions) Time/Spoke to Admitting Phy: 15:33 Dr. Rincon Time/Spoke to Consulting Phy: 15:34 Dr. Merino Impression Primary Impression: Sepsis Qualified Codes: A41.9 - Sepsis, unspecified organism Additional Impressions: Urinary tract infection Qualified Codes: N39.0 - Urinary tract infection, site not specified Right lower lobe pneumonia Qualified Codes: J18.1 - Lobar pneumonia, unspecified organism Disposition: ADMITTED INPATIENT Condition: Improved Admissions Decision to Admit Reason: Admit from ER (General) Decision to Admit/Date: Jul 17, 2019 Time/Decision to Admit Time: 15:30 Departure-Patient Inst. Referrals: [facility] (PCP) Primary Care Physician TONEY DUMONT (Family) Primary Care Physician MARLA EVERETT MD Jul 17, 2019 15:40
--- NOTE | 2019-07-17 15:42 | NUR ---
THIS RN ASKED DR IF HE WANTED MORE FLUIDS FOR PT. DR VOICED HE WOULD ORDER ANOTHER AT THIS TIME.
[2019-07-17] MEDS ORDERED: NS IV ONE (15:45)
[2019-07-17] MEDS ORDERED: NS IV NR (15:45)
[2019-07-17] MEDS ORDERED: MEROPENEM IV ONE (15:45)
[2019-07-17] MEDS ORDERED: MEROPENEM IV NR (15:45)
--- NOTE | 2019-07-17 15:52 | Diagnostic Imaging Report ---
INDICATION: Recently treated for pneumonia. Nausea, vomiting and diarrhea. EXAMINATION: Chest, 07/17/2019. COMPARISON: 07/14/2019. FINDINGS: Linear markings at the lung bases, likely chronic atelectasis or scarring. There are no new infiltrates. No effusions. No pneumothorax. Heart is stable. The pulmonary vasculature appears unchanged. IMPRESSION: Stable appearance of the chest. Persistent densities in the lung bases, unchanged. Dictated by: Dictated on workstation # [id number]
--- NOTE | 2019-07-17 16:07 | NUR ---
REPORT TO BAKARI MATUTE IN ICU. THIS RN DISCUSSED FLUID INFUSIONS, ABX ADMINISTERED ET THAT 2ND LITER OF NS UP AT THIS TIME. UNDERSTANDING VOICED
[2019-07-17] MEDS ORDERED: CATHETER FLUSH 10 ML SYR IV PRN (16:45)
[2019-07-17] MEDS ORDERED: ONDANSETRON 4 MG/2 ML (SDV) Z0FRAN IV PRN (16:45)
[2019-07-17] MEDS ORDERED: ONDANSETRON 4 MG (ZOFRAN) ORAL DISSOLVE TAB PO PRN (17:00)
[2019-07-17] MEDS ORDERED: MELATONIN 3 MG TABLET PO PRN (17:00)
[2019-07-17] MEDS ORDERED: DOCUSATE SODIUM 100 MG (COLACE) CAP PO PRN (17:00)
[2019-07-17] MEDS ORDERED: LOPERAMIDE 2 MG (IMODIUM) TABLET PO PRN (17:00)
[2019-07-17] MEDS ORDERED: CALCIUM CARBONATE 500 MG (TUMS) TAB.CHEW PO PRN (17:00)
[2019-07-17] MEDS ORDERED: ALPRAZolam 0.25 MG (XANAX) TAB PO PRN (17:00)
[2019-07-17] MEDS ORDERED: ONDANSETRON 4 MG/2 ML (SDV) Z0FRAN IVP PRN (17:00)
[2019-07-17] MEDS ORDERED: diphenhydrAMINE 25 MG TAB (BENADRYL) PO PRN (17:00)
[2019-07-17] MEDS ORDERED: VANCOMYCIN 1250 MG/NS 250 ML IVPB IV NR ×2 (17:00)
[2019-07-17] MEDS ORDERED: ACETAMINOPHEN 500 MG TAB (TYLENOL) ONE (17:35)
[2019-07-17] MEDS: ACETAMINOPHEN 500 MG TAB (TYLENOL) PO PRN (17:46)
[2019-07-17] MEDS ORDERED: inSUlin ASPART (NovoLOG) 1 UNIT/0.01 ML (CHARGE PER UNIT) SC PRN (18:15)
[2019-07-17] MEDS: SENNA W/DOCUSATE (SENOKOT S) TABLET PO SCH (20:57)
[2019-07-17] MEDS: NS IV 1000 ML 1,000 ML IV SCH (21:36)
--- NOTE | 2019-07-17 22:15 | NUR ---
PT INCONTINENT OF FREQUENT, LIQUID STOOL. SKIN OF CRISTY AREA AND BUTTOCKS RED AND IRRITATED. FLEXISEAL INSERTED AT THIS TIME PER E-ICU. PT TOLERATED WELL
[2019-07-18] VITALS (18 sets, daily range): BP systolic 111–148; BP diastolic 51–77
[2019-07-18] MEDS: MEROPENEM 500 MG/SWFI 10 ML IV PUSH IV SCH ×10 (00:16→23:56)
[2019-07-18 03:53] LABS: BASOPHILS % (AUTO) 0 % (0-10); EOSINOPHILS % (AUTO) 0 % (0-10); HEMATOCRIT 29 % (35-52); HEMOGLOBIN 8.3 G/DL (11.5-16.0); LYMPHOCYTES # (AUTO) 1.4 X 10^3 (1.0-4.0); LYMPHOCYTES % (AUTO) 13 % (12-44); MEAN CORPUSCULAR HEMOGLOBIN 21 PG (25-34); MEAN CORPUSCULAR HGB CONC 29 G/DL (32-36); MEAN CORPUSCULAR VOLUME 73 FL (80-99); MEAN PLATELET VOLUME 10.3 FL (7.4-10.4); MONOCYTES # (AUTO) 1.3 X 10^3 (0.0-1.0); MONOCYTES % (AUTO) 12 % (0-12); NEUTROPHILS # (AUTO) 8.1 X 10^3 (1.8-7.8); NEUTROPHILS % (AUTO) 75 % (42-75); PLATELET COUNT 308 10^3/uL (130-400); RED CELL DISTRIBUTION WIDTH 22.4 % (10.0-14.5); WHITE BLOOD COUNT 10.8 10^3/uL (4.3-11.0)
[2019-07-18 04:08] LABS: BUN/CREATININE RATIO 37; CALCIUM 7.4 MG/DL (8.5-10.1); CARBON DIOXIDE 16 MMOL/L (21-32); CHLORIDE 112 MMOL/L (98-107); CREATININE SERUM 0.73 MG/DL (0.60-1.30); GFR ESTIMATED > 60; GLUCOSE 79 MG/DL (70-105); MAGNESIUM 1.5 MG/DL (1.6-2.4); PHOSPHORUS 3.3 MG/DL (2.3-4.7); POTASSIUM 4.1 MMOL/L (3.6-5.0); SODIUM 139 MMOL/L (135-145)
[2019-07-18] MEDS: NS IV 1000 ML 1,000 ML IV SCH ×2 (04:18→10:33)
[2019-07-18] MEDS: VANCOMYCIN 1 GM/NS 250 ML IVPB IV SCH ×4 (05:06→16:36)
[2019-07-18] MEDS: MAGNESIUM 1 GM/100 ML IVPB 100 ML IV SCH ×2 (06:14→08:03)
--- NOTE | 2019-07-18 07:12 | Diagnostic Imaging Report ---
INDICATION: Dyspnea. COMPARISON: 07/17/2019 FINDINGS: Single frontal view of the chest demonstrates normal heart size and pulmonary vascularity. The lungs appear mildly hyperinflated with probable scarring and/or atelectasis within both bases. Overall, aeration is unchanged. No large pleural effusion or pneumothorax is seen. The visualized osseous structures show no acute abnormalities. IMPRESSION: 1. Stable exam of the chest. Dictated by: Dictated on workstation # [id number]
[2019-07-18] MEDS: SENNA W/DOCUSATE (SENOKOT S) TABLET PO SCH ×2 (08:03→21:26)
--- NOTE | 2019-07-18 08:10 | Pulmonary Consultation ---
History of Present Illness History of Present Illness Date of Consultation 07/18/19 08:05 Time Seen by Provider: 08:05 Date of Admission History of Present Illness 54yo with recent hospitalization 06/30 secondary to COPDAE, and PNA presented to ED secondary to worsening SOB, weakness, diarrhea,nausea, vomiting, and fever. generalized body aches. Pt was found to have dehydration, and sinus tach in ED. She was admitted to ICU for close observation. I am consulted for pulmonary/CC management. Allergies and Home Medications Allergies Coded Allergies: Penicillins (Verified Allergy, Mild, Hives, 07/23/18) Qjfhpus-Dsw-Vwe Reductase Inhibitor (Verified Allergy, Unknown, TAKES ATORVASTATIN AT HOME, 06/15/19) amlodipine besylate (Verified Allergy, Unknown, TAKES AMLODIPINE AT HOME, 06/15/19) benazepril HCl (Verified Allergy, Unknown, 07/23/18) aspirin (Verified Adverse Reaction, Mild, Nausea, 07/23/18) codeine (Verified Adverse Reaction, Mild, Nausea, 07/23/18) tramadol (Verified Adverse Reaction, Mild, N/V, 07/23/18) Home Medications Acetaminophen 500 Mg Tablet, 1,000 MG PO Q6H PRN for PAIN-MODERATE, (Reported) Albuterol Sulfate 1 Puff Puff, 2 PUFF IH Q4H PRN for SHORTNESS OF BREATH, (Reported) Albuterol Sulfate 2.5 Mg/3 Ml Vial.neb, 2.5 MG NEB TID PRN for SHORTNESS OF BREATH, (Reported) Amlodipine Besylate 5 Mg Tablet, 5 MG PO DAILY, (Reported) Atorvastatin Calcium 40 Mg Tablet, 40 MG PO HS, (Reported) Baclofen 10 Mg Tablet, 10 MG PO TID PRN for MUSCLE SPASMS, (Reported) Brexpiprazole 2 Mg Tablet, 2 MG PO DAILY, (Reported) Budesonide/Formoterol Fumarate 10.2 Gm Hfa.aer.ad, 2 PUFF IH BID, (Reported) Cetirizine HCl 10 Mg Tab.chew, 10 MG PO DAILY, (Reported) Cyclobenzaprine HCl 10 Mg Tablet, 10 MG PO TID PRN for MUSCLE SPASMS, (Reported) Diphenoxylate HCl/Atropine 1 Each Tablet, 1 TAB PO QID PRN for DIARRHEA, (Reported) Duloxetine HCl 60 Mg Capsule.dr, 60 MG PO DAILY, (Reported) Fesoterodine Fumarate 8 Mg Tab.er.24h, 8 MG PO DAILY, (Reported) Fluoxetine HCl 40 Mg Capsule, 40 MG PO DAILY, (Reported) Gabapentin 600 Mg Tablet, 1,200 MG PO BID, (Reported) TAKES 2 (600MG) TABLETS Hydrocodone Bit/Acetaminophen 1 Tab Tab, 1 EACH PO Q4-6HR PRN for PAIN-MODERATE Prescribed by: MARLA MAZARIEGOS on 06/24/191357 L.acidoph & Paracasei,B.lactis 1 Each Capsule, 1 EACH PO TIDPC Prescribed by: MARLA MAZARIEGOS on 06/24/191357 Levofloxacin 750 Mg Tablet, 750 MG PO DAILY Prescribed by: THOMPSON QURESHI on 06/30/191905 Levothyroxine Sodium 50 Mcg Tablet, 50 MCG PO DAILY, (Reported) Metformin HCl 500 Mg Tablet, 500 MG PO BID, (Reported) Metoprolol Tartrate 25 Mg Tablet, 25 MG PO BID, (Reported) Mirtazapine 15 Mg Tablet, 15 MG PO HS, (Reported) Montelukast Sodium 10 Mg Tablet, 10 MG PO 1700, (Reported) Naproxen 500 Mg Tablet, 500 MG PO BID PRN for PAIN-MILD, (Reported) Ondansetron 4 Mg Tab.rapdis, 4 MG PO Q4H PRN for NAUSEA/VOMITING-1ST LINE, (Reported) Ondansetron 4 Mg Tab.rapdis, 4 MG SL Q4H PRN for NAUSEA/VOMITING Prescribed by: MARLA MAZARIEGOS on 06/24/191357 Pantoprazole Sodium 40 Mg Tablet.dr, 40 MG PO DAILY, (Reported) Prednisone 20 Mg Tab, 40 MG PO DAILY Prescribed by: THOMPSON QURESHI on 06/30/191905 Tiotropium [place] 1 Inh Aerp, 1 CAP IH DAILY, (Reported) Tramadol HCl 50 Mg Tablet, 50 MG PO BID PRN for PAIN-MODERATE, (Reported) Trazodone HCl 100 Mg Tablet, 100 MG PO HS, (Reported) Past Tseyklw-Ifztzh-Zlcboo Hx Past Med/Social Hx: Reviewed and Corrections made Patient Social History Alcohol Use: Denies Use Recreational Drug Use: No Smoking Status: Current Everyday Smoker Type Used: Cigarettes Former Smoker, Quit: Jun 27, 2018 Recent Foreign Travel: No Contact w/Someone Who Travel: No Recent Infectious Disease Expo: No Recent Hopitalizations: Yes Physical Abuse: No Sexual Abuse: No Mistreated: No Fear: No Immunizations Up To Date Tetanus Booster (TDap): Less than 5yrs Date of Pneumonia Vaccine: Jul 10, 2011 Date of Influenza Vaccine: Aug 20, 2018 Seasonal Allergies Seasonal Allergies: No Past Medical History Surgeries: Yes (CARPALTUNAL) Amputation, Orthopedic, Vascular Surgery Respiratory: Yes ( O2 2L/NC @ NOC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, 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 Sexually Transmitted Disease: No HIV/AIDS: No Genitourinary: Yes (BLADDER SUSPENSION) Bladder Infection Gastrointestinal: Yes Gastroesophageal Reflux Musculoskeletal: Yes (RT BTK AMPUTATION) Amputee Endocrine: Yes Diabetes, Non-Insulin dep HEENT: No Loss of Vision: Bilateral Hearing Impairment: Denies Cancer: No Psychosocial: Yes Anxiety, Depression Integumentary: No Blood Disorders: Yes (ANEMIA) Adverse Reaction/Blood Tranf: No (N/A) Family Medical History Arthritis Diabetes mellitus Hypertension No Pertinent Family Hx Patient reports she does not know Review of Systems Time Seen by Provider: 08:08 Constitutional: Fever, Chills, Sweats, Weakness, Malaise, Other Eyes: No: Pain, Vision change, Conjunctivae inflammation, Eyelid inflammation, Other, Redness ENT: Nose congestion; No: Ear pain, Ear discharge, Nose pain, Nose discharge, Mouth pain, Mouth swelling, Throat pain, Throat swelling, Other Respiratory: Cough, Dry, Shortness of breath, SOB with excertion, Wheezing; No: Hemoptysis, Pleuritic Pain Cardiovascular: Palpitations, Paroxysmal Noc. Dyspnea, Lt Headedness; No: Chest Pain, Orthopnea Gastrointestinal: Nausea, Vomiting, Abdominal Pain, Diarrhea; No: Constipation, Melena, Hematochezia Neurological: Weakness Sepsis Event Evaluation Height, Weight, BMI Height: 5'7.00" Weight: 197lbs. 2.0oz. [id number]; 28.5 BMI Method:Stated Exam Exam Vital Signs Date Time Temp Pulse Resp B/P (MAP) Pulse Ox O2 Delivery O2 Flow Rate FiO2 07/18/19 07:00 92 07/18/19 07:00 92 18 134/61 (85) 96 Nasal Cannula 3.00 07/18/19 06:00 91 19 136/66 (89) 96 Nasal Cannula 3.00 07/18/19 05:00 96 18 133/66 (88) 95 Nasal Cannula 3.00 07/18/19 04:00 95 18 130/64 (86) 95 Nasal Cannula 3.00 07/18/19 04:00 98.0 07/18/19 04:00 95 Nasal Cannula 3.00 07/18/19 03:00 90 19 111/51 (71) 95 Nasal Cannula 3.00 07/18/19 02:00 93 25 133/60 (84) 95 Nasal Cannula 3.00 07/18/19 01:00 93 18 118/64 (82) 96 Nasal Cannula 3.00 07/18/19 01:00 93 07/18/19 00:00 93 22 128/66 (86) 96 Nasal Cannula 3.00 07/18/19 00:00 95 Nasal Cannula 3.00 07/18/19 00:00 98.5 07/17/19 23:00 91 18 120/61 (80) 97 Nasal Cannula 3.00 07/17/19 22:00 95 16 138/81 (100) 96 Nasal Cannula 3.00 07/17/19 21:00 93 15 142/74 (96) 95 Nasal Cannula 3.00 07/17/19 20:00 98.3 07/17/19 20:00 92 21 126/65 (85) 96 Nasal Cannula 3.00 07/17/19 20:00 93 Nasal Cannula 3.00 07/17/19 19:32 97 Nasal Cannula 3.00 07/17/19 19:00 94 22 128/111 (117) 97 Nasal Cannula 3.00 07/17/19 19:00 95 07/17/19 18:12 96 Nasal Cannula 3.00 07/17/19 18:00 94 27 117/85 (96) 94 Nasal Cannula 3.00 07/17/19 17:00 93 24 147/85 (105) 95 Nasal Cannula 3.00 07/17/19 16:42 Nasal Cannula 3.00 07/17/19 16:30 91 21 166/73 (104) 94 Nasal Cannula 3.00 07/17/19 16:26 92 07/17/19 16:14 91 20 171/86 (114) 97 Room Air 07/17/19 13:28 98.7 114 20 138/88 (105) Room Air 07/17/19 13:28 99.6 114 24 138/88 (105) 94 Room Air I & O 07/18/19 07:00 Intake Total 4662.5 ml Output Total 1295 ml Balance 3367.5 ml Height & Weight Height: 5'7.00" Weight: 197lbs. 2.0oz. 89.362245fb; 28.5 BMI Method:Stated General Appearance: No Apparent Distress, WD/WN, Obese HEENT: PERRL/EOMI, Normal ENT Inspection, Pharynx Normal, Other (mucous membranes dry) Neck: Normal Inspection Respiratory: Lungs Clear, Normal Breath Sounds, No Accessory Muscle Use, No Respiratory Distress Cardiovascular: No Edema, No Murmur, Tachycardia Capillary Refill: Less Than 3 Seconds Extremity: Normal Inspection, No Pedal Edema, Other (amputation right lower extremity) Neurologic/Psychiatric: Alert, Oriented x3, No Motor/Sensory Deficits, Normal Mood/Affect, space and missile operations spacelift II-XII Norm as Tested Skin: Normal Color, Warm/Dry Lymphatic: No Adenopathy Results Lab Laboratory Tests 07/17/19 13:32 07/18/19 03:16 Assessment/Plan Assessment/Plan Persistent atelectasis and pulmonary infiltrates -Continue Merrem and Vanco for now -Start Flagyl and await Cdiff toxin -MRSA nasal swab -PT may need bronchoscopy Acute dehydration -IVF Diarrhea -Check Cdiff toxin -Add Flagyl Anemia -Check occult stool Metabolic lactic acidosis -IVF Hypomagnesemia -Replace ROSE OSBORN DO Jul 18, 2019 08:10
[2019-07-18] MEDS ORDERED: VILA40TA PO (09:05)
[2019-07-18] MEDS ORDERED: HYDR50TA76 PO (09:05)
[2019-07-18] MEDS ORDERED: OXYB15TA PO (09:05)
[2019-07-18] MEDS ORDERED: BUDE10.2 INH (09:05)
--- NOTE | 2019-07-18 09:06 | NUR ---
WENT OVER THE EXT MED HX WITH THE PATIENT AND SHE VERIFIED HOW SHE TAKES EVERYTHING. SHE TAKES TYLENOL OTC NEEDED. SHE STATES SHE DOES NOT RECEIVE ANY SAMPLES OR REPOSITORY MEDS.
--- NOTE | 2019-07-18 10:26 | History & Physical ---
HPI History of Present Illness: Came in due to vomiting and diarrhea and chills for 2-3 days. Also complains of shortness of breath and chest pain, reports she was recently in for walking pneumonia but is off of antibiotics. On baseline oxygen. Source: patient Date seen by provider: Jul 18, 2019 Time Seen by Provider: 10:20 Attending Physician Que Vial MD PCP [facility] [place] Consult Date of Admission Jul 17, 2019 at 15:34 Home Medications Home Medications Reviewed patient Home Medication Reconciliation performed by pharmacy medication reconciliations pharmacist technician and/or nursing. Patients Allergies have been reviewed. Allergies Coded Allergies: Penicillins (Verified Allergy, Mild, Hives, 07/23/18) Mdtlxka-Ebc-Gne Reductase Inhibitor (Verified Allergy, Unknown, TAKES ATORVASTATIN AT HOME, 06/15/19) amlodipine besylate (Verified Allergy, Unknown, TAKES AMLODIPINE AT HOME, 06/15/19) benazepril HCl (Verified Allergy, Unknown, 07/23/18) aspirin (Verified Adverse Reaction, Mild, Nausea, 07/23/18) codeine (Verified Adverse Reaction, Mild, Nausea, 07/23/18) tramadol (Verified Adverse Reaction, Mild, N/V, 07/23/18) VDX-Ymoofu-Bqaiom Hx Patient Social History Alcohol Use: Denies Use Recreational Drug Use: No Smoking Status: Current Everyday Smoker Type Used: Cigarettes Recent Foreign Travel: No Contact w/other who traveled: No Recent Hopitalizations: Yes Recent Infectious Disease Expo: No Immunizations Up To Date Tetanus Booster (TDap): Less than 5yrs Date of Pneumonia Vaccine: Jul 10, 2011 Date of Influenza Vaccine: Aug 20, 2018 Past Medical History PMHx: HTN Chronic pain Coronary artery disease s/p stent COPD oxygen requiring DMII PSurgHx: Hysterectomy Coronary artery stent Family Medical History Other Significan Family Hx: Patient reports she does not know Family History: Arthritis Diabetes mellitus Hypertension Review of Systems (CHC) Constitutional: chills, fever EENTM: nose congestion, throat pain Respiratory: cough, short of breath Cardiovascular: chest pain Gastrointestinal: abdominal pain, diarrhea; No melena; vomiting Genitourinary: dysuria Musculoskeletal: joint pain, muscle pain Skin: No rash Reviewed Test Results Reviewed Test Results Lab Laboratory Tests Test 07/17/19 13:32 07/17/19 14:40 07/17/19 16:53 07/17/19 18:50 Range/Units White Blood Count 27.3 H 4.3-11.0 10^3/uL Red Blood Count 5.22 4.35-5.85 10^6/uL Hemoglobin 11.3 L 11.5-16.0 G/DL Hematocrit 37 35-52 % Mean Corpuscular Volume 71 L 80-99 FL Mean Corpuscular Hemoglobin 22 L 25-34 PG Mean Corpuscular Hemoglobin Concent 30 L 32-36 G/DL Red Cell Distribution Width 22.6 H 10.0-14.5 % Platelet Count 497 H 130-400 10^3/uL Mean Platelet Volume 10.5 H 7.4-10.4 FL Neutrophils (%) (Auto) 86 H 42-75 % Lymphocytes (%) (Auto) 5 L 12-44 % Monocytes (%) (Auto) 8 0-12 % Eosinophils (%) (Auto) 0 0-10 % Basophils (%) (Auto) 0 0-10 % Neutrophils # (Auto) 23.4 H 1.8-7.8 X 10^3 Lymphocytes # (Auto) 1.5 1.0-4.0 X 10^3 Monocytes # (Auto) 2.3 H 0.0-1.0 X 10^3 Eosinophils # (Auto) 0.1 0.0-0.3 10^3/uL Basophils # (Auto) 0.0 0.0-0.1 10^3/uL Neutrophils % (Manual) 90 % Lymphocytes % (Manual) 7 % Monocytes % (Manual) 3 % Polychromasia SLIGHT Hypochromasia SLIGHT Anisocytosis SLIGHT Microcytosis SLIGHT Sodium Level 134 L 135-145 MMOL/L Potassium Level 5.1 H 3.6-5.0 MMOL/L Chloride Level 104 98-107 MMOL/L Carbon Dioxide Level 17 L 21-32 MMOL/L Anion Gap 13 5-14 MMOL/L Blood Urea Nitrogen 37 H 7-18 MG/DL Creatinine 1.24 0.60-1.30 MG/DL Estimat Glomerular Filtration Rate 45 BUN/Creatinine Ratio 30 Glucose Level 179 H 70-105 MG/DL Lactic Acid Level 3.95 *H 2.06 *H 0.50-2.00 MMOL/L Calcium Level 8.6 8.5-10.1 MG/DL Corrected Calcium 9.6 8.5-10.1 MG/DL Total Bilirubin 0.5 0.1-1.0 MG/DL Aspartate Amino Transf (AST/SGOT) 11 5-34 U/L Alanine Aminotransferase (ALT/SGPT) 8 0-55 U/L Alkaline Phosphatase 128 40-136 U/L C-Reactive Protein High Sensitivity 20.91 H 0.00-0.50 MG/DL Total Protein 6.9 6.4-8.2 GM/DL Albumin 2.7 L 3.2-4.5 GM/DL Lipase 4 L 8-78 U/L Urine Color YELLOW Urine Clarity VERY CLOUDY H Urine pH 8 5-9 Urine Specific [place] 1.010 L 1.016-1.022 Urine Protein 2+ H NEGATIVE Urine Glucose (UA) NEGATIVE NEGATIVE Urine Ketones 1+ H NEGATIVE Urine Nitrite POSITIVE H NEGATIVE Urine Bilirubin 1+ H NEGATIVE Urine Urobilinogen NORMAL NORMAL MG/DL Urine Leukocyte Esterase 3+ H NEGATIVE Urine RBC (Auto) 5+ H NEGATIVE Urine RBC NONE /HPF Urine WBC TNTC H /HPF Urine Crystals NONE /LPF Urine Bacteria LARGE H /HPF Urine Casts NONE /LPF Urine Mucus NEGATIVE /LPF Urine Culture Indicated YES Glucometer 99 70-110 MG/DL Test 07/18/19 03:16 07/18/19 10:40 07/18/19 11:05 Range/Units White Blood Count 10.8 4.3-11.0 10^3/uL Red Blood Count 3.92 L 4.35-5.85 10^6/uL Hemoglobin 8.3 #L 11.5-16.0 G/DL Hematocrit 29 L 35-52 % Mean Corpuscular Volume 73 L 80-99 FL Mean Corpuscular Hemoglobin 21 L 25-34 PG Mean Corpuscular Hemoglobin Concent 29 L 32-36 G/DL Red Cell Distribution Width 22.4 H 10.0-14.5 % Platelet Count 308 130-400 10^3/uL Mean Platelet Volume 10.3 7.4-10.4 FL Neutrophils (%) (Auto) 75 42-75 % Lymphocytes (%) (Auto) 13 12-44 % Monocytes (%) (Auto) 12 0-12 % Eosinophils (%) (Auto) 0 0-10 % Basophils (%) (Auto) 0 0-10 % Neutrophils # (Auto) 8.1 H 1.8-7.8 X 10^3 Lymphocytes # (Auto) 1.4 1.0-4.0 X 10^3 Monocytes # (Auto) 1.3 H 0.0-1.0 X 10^3 Eosinophils # (Auto) 0.0 0.0-0.3 10^3/uL Basophils # (Auto) 0.0 0.0-0.1 10^3/uL Sodium Level 139 135-145 MMOL/L Potassium Level 4.1 3.6-5.0 MMOL/L Chloride Level 112 H 98-107 MMOL/L Carbon Dioxide Level 16 L 21-32 MMOL/L Anion Gap 11 5-14 MMOL/L Blood Urea Nitrogen 27 H 7-18 MG/DL Creatinine 0.73 0.60-1.30 MG/DL Estimat Glomerular Filtration Rate > 60 BUN/Creatinine Ratio 37 Glucose Level 79 70-105 MG/DL Lactic Acid Level 0.57 0.50-2.00 MMOL/L Calcium Level 7.4 L 8.5-10.1 MG/DL Phosphorus Level 3.3 2.3-4.7 MG/DL Magnesium Level 1.5 L 1.6-2.4 MG/DL Troponin I < 0.028 <0.028 NG/ML Glucometer 116 H 70-110 MG/DL Radiology CXR stable findings at lung bases thought to be scarring or persistent atelectasis Physical Exam-(CHC) Physical Exam Vital Signs VS - Last 72 Hours, by Label 07/17/19 07/17/19 07/17/19 07/17/19 13:28 13:28 16:14 16:26 Temp 99.6 98.7 Pulse 114 114 91 92 Resp 24 20 20 B/P (MAP) 138/88 (105) 138/88 (105) 171/86 (114) Pulse Ox 94 97 O2 Delivery Room Air Room Air Room Air 07/17/19 07/17/19 07/17/19 07/17/19 16:30 16:42 17:00 18:00 Pulse 91 93 94 Resp 21 24 27 B/P (MAP) 166/73 (104) 147/85 (105) 117/85 (96) Pulse Ox 94 95 94 O2 Delivery Nasal Cannula Nasal Cannula Nasal Cannula Nasal Cannula O2 Flow Rate 3.00 3.00 3.00 3.00 8/18/19 07/17/19 07/17/19 07/17/19 18:12 19:00 19:00 19:32 Pulse 95 94 Resp 22 B/P (MAP) 128/111 (117) Pulse Ox 96 97 97 O2 Delivery Nasal Cannula Nasal Cannula Nasal Cannula O2 Flow Rate 3.00 3.00 3.00 07/17/19 07/17/19 07/17/19 07/17/19 20:00 20:00 20:00 21:00 Temp 98.3 Pulse 92 93 Resp 21 15 B/P (MAP) 126/65 (85) 142/74 (96) Pulse Ox 93 96 95 O2 Delivery Nasal Cannula Nasal Cannula Nasal Cannula O2 Flow Rate 3.00 3.00 3.00 07/17/19 07/17/19 07/18/19 07/18/19 22:00 23:00 00:00 00:00 Temp 98.5 Pulse 95 91 Resp 16 18 B/P (MAP) 138/81 (100) 120/61 (80) Pulse Ox 96 97 95 O2 Delivery Nasal Cannula Nasal Cannula Nasal Cannula O2 Flow Rate 3.00 3.00 3.00 07/18/19 07/18/19 07/18/19 07/18/19 00:00 01:00 01:00 02:00 Pulse 93 93 93 93 Resp 22 18 25 B/P (MAP) 128/66 (86) 118/64 (82) 133/60 (84) Pulse Ox 96 96 95 O2 Delivery Nasal Cannula Nasal Cannula Nasal Cannula O2 Flow Rate 3.00 3.00 3.00 07/18/19 07/18/19 07/18/19 07/18/19 03:00 04:00 04:00 04:00 Temp 98.0 Pulse 90 95 Resp 18 B/P (MAP) 111/51 (71) 130/64 (86) Pulse Ox 95 95 95 O2 Delivery Nasal Cannula Nasal Cannula Nasal Cannula O2 Flow Rate 3.00 3.00 3.00 07/18/19 07/18/19 07/18/19 07/18/19 05:00 06:00 07:00 07:00 Pulse 96 91 92 92 Resp 18 19 18 B/P (MAP) 133/66 (88) 136/66 (89) 134/61 (85) Pulse Ox 95 96 96 O2 Delivery Nasal Cannula Nasal Cannula Nasal Cannula O2 Flow Rate 3.00 3.00 3.00 07/18/19 07/18/19 07/18/19 07/18/19 08:00 08:00 09:00 10:00 Pulse 90 91 91 Resp 21 16 17 B/P (MAP) 130/64 (86) 126/75 (92) 126/53 (77) Pulse Ox 95 95 95 95 O2 Delivery Nasal Cannula Nasal Cannula Nasal Cannula Nasal Cannula O2 Flow Rate 3.00 3.00 3.00 3.00 07/18/19 07/18/19 07/18/19 07/18/19 11:00 12:00 12:35 13:00 Pulse 94 94 97 92 Resp 22 19 20 B/P (MAP) 135/59 (84) 139/59 (85) 129/53 (78) Pulse Ox 95 95 96 O2 Delivery Nasal Cannula Nasal Cannula Nasal Cannula O2 Flow Rate 3.00 3.00 3.00 Capillary Refill : Less Than 3 Seconds General Appearance: WD/WN, no apparent distress Respiratory: lungs clear, normal breath sounds Cardiovascular: regular rate, rhythm, no murmur Gastrointestinal: normal bowel sounds, non tender, soft Extremities: no pedal edema Neurologic/Psychiatric: alert, normal mood/affect Skin: normal color, warm/dry Assessment/Plan Assessment/Plan Admission Status: Inpatient Order (span 2 midnights) Reason for Inpatient Admission: Sepsis requiring IV antibiotics iwth severe underlying comorbidities. (1) Sepsis Status: Resolved Assessment & Plan: Leukocytosis, elevated lactic acid. Resolved lactic acidosis with IVF last night. On meropenem and vancomycin from admit based on prior cultures. Cultures pending. Qualifiers: Qualified Codes: A41.9 - Sepsis, unspecified organism (2) Urinary tract infection Status: Acute Assessment & Plan: Culture pending. Qualifiers: Qualified Codes: N39.0 - Urinary tract infection, site not specified (3) Diarrhea Status: Acute Assessment & Plan: C diff negative, possibly secondary to antibiotic use. (4) Chest pain Status: Acute Assessment & Plan: Apparently associated with diffuse chronic pain, however given CAD history, will check troponin and EKG. (5) Diabetes mellitus type 2 Status: Chronic Onset Date: 05/23/2014 Assessment & Plan: Resume metformin, sliding scale insulin, diabetic diet Qualifiers: (6) Hypertension Status: Chronic Assessment & Plan: Resume home amlodipine and metoprolol. Qualifiers: Qualified Codes: I10 - Essential (primary) hypertension (7) CAD (coronary artery disease) Status: Chronic Assessment & Plan: Resume home statin. (8) COPD (chronic obstructive pulmonary disease) Status: Chronic Assessment & Plan: Resume home inhalers, is on baseline supplemental oxygen. (9) Hyperkalemia Status: Resolved Assessment & Plan: Resolved with IVF overnight. (10) Hyperchloremia Status: Acute Assessment & Plan: Change IVF to 1/2 NS (11) Hyponatremia Status: Resolved Assessment & Plan: Resolved with IVF overnight. (12) DVT prophylaxis Status: Acute Assessment & Plan: Enoxaparin Clinical Quality Measures DVT/VTE Risk/Contraindication: Risk Factor Score Per Nursin RFS Level Per Nursing on Admit: 4+=Very High QUE VILA MD Jul 18, 2019 10:25
[2019-07-18] MEDS: ACETAMINOPHEN 500 MG TAB (TYLENOL) PO PRN ×3 (10:43→21:26)
--- NOTE | 2019-07-18 11:15 | NUR ---
Pastoral care visit.
[2019-07-18] MEDS ORDERED: 1/2 NS IV SOLUTION 1,000 ML IV ONE (14:28)
[2019-07-18] MEDS ORDERED: ENOXAPARIN 40 MG/0.4 ML (LOVENOX) SYR ONE (14:28)
[2019-07-18] MEDS: metroNIDAZOLE 500MG/100ML IVPB 100 ML IV SCH ×2 (14:38→21:26)
[2019-07-18] MEDS: ENOXAPARIN 40 MG/0.4 ML (LOVENOX) SYR SQ SCH (14:39)
[2019-07-18] MEDS: 1/2 NS IV SOLUTION 1,000 ML IV SCH (14:39)
--- NOTE | 2019-07-18 14:50 | NUR ---
REPORT FROM GIOVANI VILLEGAS. PATIENT TO ROOM 420 VIA BED. PATIENT REQUESTING PAIN MEDICATION. WILL CONTINUE TO MONITOR
[2019-07-18] MEDS: HYDROmorphone 2 MG/ML VIAL (DILAUDID) IV PRN ×2 (15:24→22:40)
[2019-07-18] MEDS: MONTELUKAST 10 MG (SINGULAIR) TAB PO SCH (16:35)
[2019-07-18] MEDS: metFORMIN 500 MG (GLUCOPHAGE) TAB PO SCH (16:35)
[2019-07-18] MEDS ORDERED: MEROPENEM 500 MG VIAL (MERREM) IV ONE ×2 (17:07→23:44)
[2019-07-18] MEDS ORDERED: WATER (STERILE) FOR INJECTION 10 ML ONE ×2 (17:07→23:44)
[2019-07-18] MEDS ORDERED: RT-ADVAIR HFA 115/21 MCG PER PUFF IH SCH (20:00)
[2019-07-18] MEDS: meTOprolol TARTRATE 25 MG (LOPRESSOR) TABLET PO SCH (21:26)
[2019-07-18] MEDS: GABAPENTIN 600 MG (NEURONTIN) TAB PO SCH (21:26)
[2019-07-19 03:51] VITALS: BP 119/69
[2019-07-19] MEDS ORDERED: TROUGH ORDER-PHARMACY XX NR (04:00)
[2019-07-19] MEDS: 1/2 NS IV SOLUTION 1,000 ML IV SCH ×3 (04:05→20:47)
[2019-07-19 04:38] LABS: BASOPHILS % (AUTO) 0 % (0-10); EOSINOPHILS # (AUTO) 0.3 10^3/uL (0.0-0.3); EOSINOPHILS % (AUTO) 5 % (0-10); HEMATOCRIT 28 % (35-52); LYMPHOCYTES # (AUTO) 1.2 X 10^3 (1.0-4.0); LYMPHOCYTES % (AUTO) 25 % (12-44); MEAN CORPUSCULAR HEMOGLOBIN 21 PG (25-34); MEAN CORPUSCULAR HGB CONC 28 G/DL (32-36); MEAN CORPUSCULAR VOLUME 75 FL (80-99); MONOCYTES # (AUTO) 0.8 X 10^3 (0.0-1.0); MONOCYTES % (AUTO) 16 % (0-12); NEUTROPHILS # (AUTO) 2.5 X 10^3 (1.8-7.8); NEUTROPHILS % (AUTO) 53 % (42-75); PLATELET COUNT 255 10^3/uL (130-400); RED CELL DISTRIBUTION WIDTH 22.2 % (10.0-14.5); WHITE BLOOD COUNT 4.7 10^3/uL (4.3-11.0)
[2019-07-19 04:58] LABS: BUN/CREATININE RATIO 27; CALCIUM 7.4 MG/DL (8.5-10.1); CARBON DIOXIDE 21 MMOL/L (21-32); CHLORIDE 114 MMOL/L (98-107); CREATININE SERUM 0.59 MG/DL (0.60-1.30); GFR ESTIMATED > 60; GLUCOSE 88 MG/DL (70-105); MAGNESIUM 1.8 MG/DL (1.6-2.4); PHOSPHORUS 2.1 MG/DL (2.3-4.7); POTASSIUM 4.1 MMOL/L (3.6-5.0); SODIUM 141 MMOL/L (135-145)
[2019-07-19 05:04] LABS: VANCOMYCIN,TROUGH 13.4 UG/ML (10.0-20.0)
[2019-07-19] MEDS: VANCOMYCIN 1 GM/NS 250 ML IVPB IV SCH ×2 (05:20)
[2019-07-19] MEDS: HYDROmorphone 2 MG/ML VIAL (DILAUDID) IV PRN ×3 (05:20→12:52)
[2019-07-19] MEDS ORDERED: WATER (STERILE) FOR INJECTION 10 ML ONE ×2 (05:57→12:17)
[2019-07-19] MEDS ORDERED: MEROPENEM 500 MG VIAL (MERREM) IV ONE ×2 (05:57→12:17)
[2019-07-19] MEDS: metroNIDAZOLE 500MG/100ML IVPB 100 ML IV SCH (06:07)
[2019-07-19] MEDS: MEROPENEM 500 MG/SWFI 10 ML IV PUSH IV SCH ×6 (06:07→17:58)
[2019-07-19] MEDS: LEVOTHYROXINE 50 MCG (LEVOTHROID) TAB PO SCH (06:08)
[2019-07-19] MEDS: metFORMIN 500 MG (GLUCOPHAGE) TAB PO SCH ×2 (06:08→17:50)
[2019-07-19 08:00] VITALS: BP 138/60
[2019-07-19] MEDS ORDERED: VILAZODONE 40 MG (VIIBRYD) TABLET (NON-FORMULARY) PO SCH (09:00)
[2019-07-19] MEDS ORDERED: NON-FORMULARY MEDICATION 1 EA EA (Brexpiprazole (Rexulti) 2 MG) PO SCH (09:00)
[2019-07-19] MEDS: meTOprolol TARTRATE 25 MG (LOPRESSOR) TABLET PO SCH ×2 (09:22→20:46)
[2019-07-19] MEDS: amLODIPine 5 MG (NORVASC) TAB PO SCH (09:22)
[2019-07-19] MEDS: LORATADINE (CLARITIN) 10 MG TAB PO SCH (09:22)
[2019-07-19] MEDS: TOLTERODINE LA 4 MG (DETROL) CAP PO SCH (09:22)
[2019-07-19] MEDS: hydrOXYzine (VISTARIL/ATARAX) 25 MG capsule/tablet PO SCH (09:23)
[2019-07-19] MEDS: ATORVASTATIN 40 MG (LIPITOR) TABLET PO SCH (09:23)
[2019-07-19] MEDS: PANTOPRAZOLE 40 MG (PROTONIX) TAB PO SCH (09:23)
[2019-07-19] MEDS: SENNA W/DOCUSATE (SENOKOT S) TABLET PO SCH ×2 (09:24→20:47)
[2019-07-19] MEDS: GABAPENTIN 600 MG (NEURONTIN) TAB PO SCH ×2 (09:25→20:46)
[2019-07-19] MEDS: ADVAIR HFA 115/21 MCG INHALER 8 GM IH SCH ×2 (09:41→22:10)
[2019-07-19] MEDS: UMECLIDINIUM BROMIDE (INCRUSE ELLIPTA) 7'S IH SCH (09:42)
--- NOTE | 2019-07-19 10:53 | Progress Note ---
Subjective Subjective/Events-last exam Afebrile, reports bowel movements are decreasing significantly but she does still feel very weak and is having persistent generalized pain. Focused Exam Lactate Level 07/17/19 13:32: Lactic Acid Level 3.95*H 07/17/19 18:50: Lactic Acid Level 2.06*H 07/18/19 03:16: Lactic Acid Level 0.57 Objective Exam Last Set of Vital Signs Vital Signs Date Time Temp Pulse Resp B/P (MAP) Pulse Ox O2 Delivery O2 Flow Rate FiO2 07/19/19 09:41 88 Nasal Cannula 2.00 07/19/19 08:00 97.3 70 18 138/60 (86) Capillary Refill : Less Than 3 Seconds I&O Intake and Output 07/19/19 00:00 Intake Total 2280 ml Output Total 2170 ml Balance 110 ml Intake Oral 700 ml IV Total 1580 ml Output Urine Total 1970 ml Stool Total 200 ml # Bowel Movements 4 General: Alert, No Acute Distress Lungs: Clear to Auscultation, Normal Air Movement Heart: Regular Rate, No Murmurs Abdomen: Normal Bowel Sounds, Soft, Other (mild ttp diffusely) Extremities: Other (R BKA) Neuro: Normal Speech Results/Procedures Lab Laboratory Tests 07/18/19 11:05: Glucometer 116H 07/18/19 16:28: Glucometer 114H 07/18/19 20:54: Glucometer 123H 07/19/19 04:02: White Blood Count 4.7, Red Blood Count 3.77L, Hemoglobin 8.0L, Hematocrit 28L, Mean Corpuscular Volume 75L, Mean Corpuscular Hemoglobin 21L, Mean Corpuscular Hemoglobin Concent 28L, Red Cell Distribution Width 22.2H, Platelet Count 255, Mean Platelet Volume 10.0, Neutrophils (%) (Auto) 53, Lymphocytes (%) (Auto) 25, Monocytes (%) (Auto) 16H, Eosinophils (%) (Auto) 5, Basophils (%) (Auto) 0, Neutrophils # (Auto) 2.5, Lymphocytes # (Auto) 1.2, Monocytes # (Auto) 0.8, Eosinophils # (Auto) 0.3, Basophils # (Auto) 0.0, Sodium Level 141, Potassium Level 4.1, Chloride Level 114H, Carbon Dioxide Level 21, Anion Gap 6, Blood Urea Nitrogen 16, Creatinine 0.59L, Estimat Glomerular Filtration Rate > 60, BU N/Creatinine Ratio 27, Glucose Level 88, Calcium Level 7.4L, Phosphorus Level 2.1L, Magnesium Level 1.8, Vancomycin Level Trough 13.4 Microbiology 07/17/19 Blood Culture - Preliminary, Resulted No growth 07/17/19 C. difficile GDH Antigen & Toxins - Final, Complete 07/17/19 MRSA Screen - Final, Complete MRSA not isolated 07/17/19 Urine Culture - Final, Complete 3 or more isolates Radiology CXR stable findings at lung bases thought to be scarring or persistent atelectasis Assessment/Plan Assessment/Plan (1) Sepsis Status: Resolved Assessment & Plan: Leukocytosis, elevated lactic acid. Resolved lactic acidosis with IVF last night. On meropenem and vancomycin from admit based on prior cultures. Cultures pending. 07/09 continue meropenem, vanc discontinued, final results pending. Qualifiers: Qualified Codes: A41.9 - Sepsis, unspecified organism (2) Urinary tract infection Status: Acute Assessment & Plan: Culture pending. Qualifiers: Qualified Codes: N39.0 - Urinary tract infection, site not specified (3) Diarrhea Status: Acute Assessment & Plan: C diff negative, possibly secondary to antibiotic use. D/C metronidazole (4) Chest pain Status: Acute Assessment & Plan: Apparently associated with diffuse chronic pain, however given CAD history, will check troponin and EKG. (5) Diabetes mellitus type 2 Onset Date: 05/23/2014 Status: Chronic Assessment & Plan: Resume metformin, sliding scale insulin, diabetic diet Qualifiers: (6) Hypertension Status: Chronic Assessment & Plan: Resume home amlodipine and metoprolol. Qualifiers: Qualified Codes: I10 - Essential (primary) hypertension (7) CAD (coronary artery disease) Status: Chronic Assessment & Plan: Resume home statin. (8) COPD (chronic obstructive pulmonary disease) Status: Chronic Assessment & Plan: Resume home inhalers, is on baseline supplemental oxygen. (9) Hyperkalemia Status: Resolved Assessment & Plan: Resolved with IVF overnight. (10) Hyperchloremia Status: Acute Assessment & Plan: Change IVF to 1/2 NS (11) Hyponatremia Status: Resolved Assessment & Plan: Resolved with IVF overnight. (12) Weakness Status: Acute Assessment & Plan: PT to eval for home safety (13) DVT prophylaxis Status: Acute Assessment & Plan: Enoxaparin Clinical Quality Measures DVT/VTE Risk/Contraindication: Risk Factor Score Per Nursin RFS Level Per Nursing on Admit: 4+=Very High QUE LEON MD Jul 19, 2019 10:53
[2019-07-19 12:00] VITALS: BP 129/76
--- NOTE | 2019-07-19 14:13 | Physical Therapy Evaluation ---
PT Evaluation-General Medical Diagnosis Admission Date Jul 17, 2019 at 15:34 Medical Diagnosis: sepsis/UTI/pneumonia Onset Date: Jul 17, 2019 Therapy Diagnosis Therapy Diagnosis: debility Height/Weight Height (Feet): 5 Height (Inches): 7.00 Weight (Pounds): 192 Weight (Ounces): 14.0 Precautions Precautions/Isolations: Contact Isolation, Fall Prevention, Pressure Ulcer Weight Bear Status Right Lower Extremity: Right (BKA) Left Lower Extremity: Left Weight Bearing/Tolerated Referral Physician: Julito Reason for Referral: Evaluation/Treatment Medical History Pertinent Medical History: Arthritis, CAD, DM, GERD, Heart Failure, HTN, [place] Additional Medical History right BKA (~2 yrs) Current History ER secondary to diarrhea, vomiting and SOB x 2 days Reviewed History: Yes Social History Home: Apartment Current Living Status: Alone Entry Into Home: Stairs With Railing PT Steps Into Home: 6 (patient ascends and descends on her bottom per her report) Prior/Core FIM Prior Level of Function Therapy Code Descriptions/Definitions Functional [place] Measure: 0=Not Assessed/NA 4=Minimal Assistance 1=Total Assistance 5=Supervision or Setup 2=Maximal Assistance 6=Modified [place] 3=Moderate Assistance 7=Complete [place] Therapy Quality Codes: 6 Independent with activity with or without an assistive device 5 Patient requires set up or clean up by helper. Patient completes activity by themselves 4 Supervision or touching assist (CGA). [place] provide cues , steadying assist 3 The helper provides less than half the effort to complete the activity 2 The helper provides more than half the effort to complete the activity 1 Dependent. The helper does all the effort to complete an activity 7 Patient refused to complete or attempt activity 9 The patient did not perform the activity before the current illness or injury 88 Not attempted due to Medical conditions or safety concerns Functional Abilities and Goals: Independent: Patient completed the activities by him/herself, with or without an assistive device, with no assistance from a helper. Needed Some Help: Patient needed partial assistance from another person to complete activities. Dependent: A helper completed the activities for the patient. Unknown: Not Applicable: Bed Mobility: 7 Transfers (B,C,W/C) (FIM): 6 Gait: 0 Stairs: 6 Wheelchair Mobility: 7 Indoor Mobility (Ambulation): Not Applical[place] Stairs: Needed Some Help (ascends and descends on her bottom per patient report) Prior Devices Use: Manual wheelchair PT Evaluation-Current Subjective Patient initially declined PT, however, after much encouragement, patient agrees. Pain Numeric Pain Scale: 0-No Pain Location: No Pain Reported Objective Patient Orientation: Normal For Age Problem Solving: Fair Attachments: Oxygen, Shah Catheter, IV ROM/Strength ROM Lower Extremities bilateral LE WFL (right BKA) Strength Lower Extremities left LE 3+/5 grossly, right LE 3/5 grossly Integumentary/Posture Integumentary refer to nursing notes Bowel Incontinence: No Bladder Incontinence: Shah Cath Posture WFL Neuromuscular (Tone, Coordination, Reflexes) grossly intact Sensory Vision: Functional Hearing: Functional Sensation Right Lower Extremit: Impaired Sensation Left Lower Extremity: Impaired Transfers Therapy Code Descriptions/Definitions Functional [place] Measure: 0=Not Assessed/NA 4=Minimal Assistance 1=Total Assistance 5=Supervision or Setup 2=Maximal Assistance 6=Modified [place] 3=Moderate Assistance 7=Complete [place] Transfers (B, C, W/C) (FIM): 5 Scootin Rollin Supine to/from Sit: 7 Sit to/from Stand: 5 bed t/f WC(FIM only if WC use): 5 SBA initially for safety (patient places chair facing her, grabs arms rests and SPT. She performs this at home) Gait Mode of Locomotion: Wheelchair Anticipated Mode of Locomotion: Wheelchair Balance Sitting Static: Normal Sitting Dynamic: Normal Standing Static: Fair Standing Dynamic: Fair Assessment/Needs 54 y.o. female, will be seen short term by skilled PT to address functional strength and transfer training. Patient is nonambulatory PLOF and is in her w/c for mobility. Patient does not utilize FWW for transfers at home and will not her per her request. Rehab Potential: Fair Post Rehab Potential-Barriers: compliance PT Short Term Goals Short Term Goals Time Frame: Jul 27, 2019 Transfers (B,C,W/C) (FIM): 6 PT Plan Problem List Problem List: Activity Tolerance, Safety, Balance, Transfer Treatment/Plan Treatment Plan: Continue Plan of Care Treatment Plan: Education, Functional Activity John, Functional Strength, Gait, Safety, Therapeutic Exercise, Transfers Treatment Duration: Jul 27, 2019 Frequency: 6 times per week Estimated Hrs Per Day: .25 hour per day Patient and/or Family Agrees t: Yes Time/GCodes Time In: 1310 Time Out: 1324 Total Billed Treatment Time: 14 Total Billed Treatment 1 visit EVLowC 14 min VENKATA BENITO PT Jul 19, 2019 14:13
[2019-07-19] MEDS: ENOXAPARIN 40 MG/0.4 ML (LOVENOX) SYR SQ SCH (15:14)
--- NOTE | 2019-07-19 15:44 | NUR ---
CM/SS. Confirmed with [facility] that they continue to have a case open for patient and they will followup with her when she discharges. Dba Manager has not been consulted this admission, will followup as appropriate.
[2019-07-19 16:00] VITALS: BP 137/73
[2019-07-19] MEDS: MONTELUKAST 10 MG (SINGULAIR) TAB PO SCH (17:50)
[2019-07-19 23:00] VITALS: BP 141/81
[2019-07-20] MEDS: MEROPENEM 500 MG/SWFI 10 ML IV PUSH IV SCH ×6 (00:14→12:44)
[2019-07-20] MEDS: CYCLOBENZAPRINE 10 MG (FLEXERIL) TAB PO PRN ×2 (00:43→08:29)
[2019-07-20] MEDS: ACETAMINOPHEN 500 MG TAB (TYLENOL) PO PRN ×2 (00:43→08:29)
[2019-07-20] MEDS: 1/2 NS IV SOLUTION 1,000 ML IV SCH (04:01)
[2019-07-20 05:59] LABS: HEMOGLOBIN 8.2 G/DL (11.5-16.0); MEAN PLATELET VOLUME 9.9 FL (7.4-10.4); RED CELL DISTRIBUTION WIDTH 22.2 % (10.0-14.5); WHITE BLOOD COUNT 5.3 10^3/uL (4.3-11.0)
[2019-07-20 06:30] LABS: ALANINE AMINOTRANSFERASE < 6 U/L (0-55); ALBUMIN 1.9 GM/DL (3.2-4.5); ALKALINE PHOSPHATASE 84 U/L (40-136); BILIRUBIN,TOTAL 0.2 MG/DL (0.1-1.0); BUN/CREATININE RATIO 13; CALCIUM 7.3 MG/DL (8.5-10.1); CARBON DIOXIDE 23 MMOL/L (21-32); CHLORIDE 110 MMOL/L (98-107); CREATININE SERUM 0.52 MG/DL (0.60-1.30); GFR ESTIMATED > 60; GLUCOSE 88 MG/DL (70-105); PHOSPHORUS 2.1 MG/DL (2.3-4.7); POTASSIUM 3.8 MMOL/L (3.6-5.0); SODIUM 139 MMOL/L (135-145); TOTAL PROTEIN 4.8 GM/DL (6.4-8.2)
[2019-07-20] MEDS: LEVOTHYROXINE 50 MCG (LEVOTHROID) TAB PO SCH (06:48)
[2019-07-20] MEDS: metFORMIN 500 MG (GLUCOPHAGE) TAB PO SCH (06:48)
[2019-07-20 08:00] VITALS: BP 161/72
[2019-07-20] MEDS: ATORVASTATIN 40 MG (LIPITOR) TABLET PO SCH (08:15)
[2019-07-20] MEDS: MAGNESIUM 1 GM/100 ML IVPB 100 ML IV SCH ×2 (08:15→10:00)
[2019-07-20] MEDS: PANTOPRAZOLE 40 MG (PROTONIX) TAB PO SCH (08:15)
[2019-07-20] MEDS: GABAPENTIN 600 MG (NEURONTIN) TAB PO SCH (08:15)
[2019-07-20] MEDS: meTOprolol TARTRATE 25 MG (LOPRESSOR) TABLET PO SCH (08:15)
[2019-07-20] MEDS: amLODIPine 5 MG (NORVASC) TAB PO SCH (08:16)
[2019-07-20] MEDS: SENNA W/DOCUSATE (SENOKOT S) TABLET PO SCH (08:16)
[2019-07-20] MEDS: hydrOXYzine (VISTARIL/ATARAX) 25 MG capsule/tablet PO SCH (08:16)
[2019-07-20] MEDS: LORATADINE (CLARITIN) 10 MG TAB PO SCH (08:16)
[2019-07-20] MEDS: TOLTERODINE LA 4 MG (DETROL) CAP PO SCH (08:29)
--- NOTE | 2019-07-20 09:38 | Physical Therapy Daily Note ---
PT Daily Note-Current Subjective Pt agreeable to PT session. States she is performing all transfers with just supervision of staff and feels safe Pain Numeric Pain Scale: 8 Comment: back, has rcvd pain meds and mm relaxer Appearance upon arrival, pt sitting up in recliner awake and alert. Mental Status Patient Orientation: Person, Place, Time, Eyes Open, Situation Attachments: Oxygen, Shah Catheter, IV Transfers Therapy Code Descriptions/Definitions Functional [place] Measure: 0=Not Assessed/NA 4=Minimal Assistance 1=Total Assistance 5=Supervision or Setup 2=Maximal Assistance 6=Modified [place] 3=Moderate Assistance 7=Complete [place] Therapy Quality Codes: 6 Independent with activity with or without an assistive device 5 Patient requires set up or clean up by helper. Patient completes activity by themselves 4 Supervision or touching assist (CGA). [place] provide cues , steadying assist 3 The helper provides less than half the effort to complete the activity 2 The helper provides more than half the effort to complete the activity 1 Dependent. The helper does all the effort to complete an activity 7 Patient refused to complete or attempt activity 9 The patient did not perform the activity before the current illness or injury 88 Not attempted due to Medical conditions or safety concerns Weight Bearing Right Lower Extremity: Right (BKA) Left Lower Extremity: Left Weight Bearing/Tolerated Exercises Seated Therapy Exercises: Ankle pumps, Sit to stand (2x5), Long arc quads, Chair press-ups (2x10), Hip flexion, Hamstring Curls, Reaching activity (10), Hip abd/add, Tricep Seated Reps: 20 Treatments education, transfers, strengthening, sitting balance activities Assessment Current Status: Good Progress PT Short Term Goals Short Term Goals Time Frame: Jul 27, 2019 Transfers (B,C,W/C) (FIM): 6 PT Plan Treatment/Plan Treatment Plan: Continue Plan of Care Treatment Plan: Education, Functional Activity John, Functional Strength, Gait, Safety, Therapeutic Exercise, Transfers Treatment Duration: Jul 27, 2019 Frequency: 6 times per week Estimated Hrs Per Day: .25 hour per day Patient and/or Family Agrees t: Yes Safety Risks/Education Patient Education: Transfer Techniques Teaching Recipient: Patient Teaching Methods: Discussion Response to Teaching: Verbalize Understanding Time/GCodes Time In: 925 Time Out: 940 Total Billed Treatment Time: 15 Total Billed Treatment 1 visit, EX x15 SPEEDY GONZALEZ VAMP STRAP IRONER Jul 20, 2019 09:38
[2019-07-20] MEDS: ADVAIR HFA 115/21 MCG INHALER 8 GM IH SCH (09:49)
[2019-07-20] MEDS: UMECLIDINIUM BROMIDE (INCRUSE ELLIPTA) 7'S IH SCH (09:49)
[2019-07-20] MEDS ORDERED: NF-FOSFPKT PO (10:19)
--- NOTE | 2019-07-20 10:21 | Discharge Instructions ---
Discharge [facility] Discharge Medications New, Converted or Re-Newed RX: Transmitted to Pharmacy New Medications: Fosfomycin Tromethamine (Monurol) 3 Gm Pack 3 GM PO Q72H for 7 Days, #3 EA MIX WITH 4 OUNCES OF COLD WATER Continued Medications: Acetaminophen (Tylenol Extra Strength) 500 Mg Tablet 1000 MG PO Q6H PRN for PAIN-MODERATE, TAB Albuterol Sulfate (Proair Hfa) 1 Puff Puff 2 PUFF IH Q4H PRN for SHORTNESS OF BREATH, INHALER Albuterol Sulfate (Albuterol Sulfate) 2.5 Mg/3 Ml Vial.neb 2.5 MG NEB TID PRN for SHORTNESS OF BREATH, EA Amlodipine Besylate (Amlodipine Besylate) 5 Mg Tablet 5 MG PO DAILY, TAB Atorvastatin Calcium (Atorvastatin Calcium) 40 Mg Tablet 40 MG PO DAILY, TAB Brexpiprazole (Rexulti) 2 Mg Tablet 2 MG PO DAILY, TAB Budesonide/Formoterol Fumarate (Symbicort 160-4.5 Mcg Inhaler) 10.2 Gm Hfa.aer.ad 2 PUFF INH BID, INHALER Cetirizine HCl (Children's Cetirizine HCl) 10 Mg Tab.chew 10 MG PO DAILY, TAB Cyclobenzaprine HCl (Cyclobenzaprine HCl) 10 Mg Tablet 10 MG PO TID PRN for MUSCLE SPASMS, TAB Diphenoxylate HCl/Atropine (Diphenoxylate-Atrop 2.5-0.025) 1 Each Tablet 1 TAB PO QID PRN for DIARRHEA, TAB Fesoterodine Fumarate (Toviaz) 8 Mg Tab.er.24h 8 MG PO DAILY, TAB Gabapentin (Gabapentin) 600 Mg Tablet 1200 MG PO BID, TAB TAKES 2 (600MG) TABLETS Hydroxyzine HCl (Hydroxyzine HCl) 50 Mg Tablet 50 MG PO DAILY, TAB Levothyroxine Sodium (Levothyroxine Sodium) 50 Mcg Tablet 50 MCG PO DAILY, TAB Metformin HCl (Metformin HCl) 500 Mg Tablet 500 MG PO BID, TAB Metoprolol Tartrate (Metoprolol Tartrate) 25 Mg Tablet 25 MG PO BID, TAB Montelukast Sodium (Montelukast Sodium) 10 Mg Tablet 10 MG PO 1700, TAB Naproxen (Naproxen) 500 Mg Tablet 500 MG PO BID PRN for PAIN-MILD, TAB Ondansetron (Ondansetron Odt) 4 Mg Tab.rapdis 4 MG PO Q4H PRN for NAUSEA/VOMITING-1ST LINE, TAB Pantoprazole Sodium (Pantoprazole Sodium) 40 Mg Tablet.dr 40 MG PO DAILY, TAB Tiotropium [place] (Spiriva) 1 Inh Aerp 1 CAP IH DAILY, INHALER Vilazodone Hydrochloride (Viibryd) 40 Mg Tablet 40 MG PO DAILY, TAB Discontinued Medications: Oxybutynin Chloride (Oxybutynin Chloride ER) 15 Mg Tab.er.24 15 MG PO DAILY, TAB Patient Instructions Goal/Follow Up Appt: Follow up with Usman Ambrosio APRN on 08/03 at 11 am. Return to [facility] For: Fever, inability to keep down medications Activity & Diet Discharge Diet: ADA Diet Activity as Tolerated: Yes Copy Copies To 1: KIMBERLY Ventura BETHANY N MD Jul 20, 2019 10:21
--- NOTE | 2019-07-20 10:22 | Discharge Summary ---
Diagnosis/Chief Complaint Date of Admission Jul 17, 2019 at 15:34 Date of Discharge Jul 20, 2019 Admission Diagnosis Admission Diagnosis Sepsis UTI Diarrhea Weakness Discharge Diagnosis See problem list Problems/Diagnosis: (1) Sepsis Assessment & Plan: Leukocytosis, elevated lactic acid. Resolved lactic acidosis with IVF last night. On meropenem and vancomycin from admit based on prior cultures. Cultures pending. 07/19 continue meropenem, vanc discontinued, final results pending. 07/20- d/c with fosfomycin q72 hours x 7 days Qualifiers: Qualified Codes: A41.9 - Sepsis, unspecified organism Status: Resolved Resolution Date/Time: 11/30/18 @ 13:24 (2) Urinary tract infection Assessment & Plan: See above. Qualifiers: Qualified Codes: N39.0 - Urinary tract infection, site not specified Status: Acute Resolution Date/Time: 12/01/18 @ 11:19 (3) Diarrhea Assessment & Plan: C diff negative, possibly secondary to antibiotic use. Improving at time of d/c. Status: Acute Resolution Date/Time: 12/01/18 @ 11:19 (4) Chest pain Assessment & Plan: Apparently associated with diffuse chronic pain, however given CAD history, checked troponin and EKG which were unremarkable. Status: Acute (5) Diabetes mellitus type 2 Assessment & Plan: Resume metformin, sliding scale insulin, diabetic diet Qualifiers: Status: Chronic (6) Hypertension Assessment & Plan: Resume home amlodipine and metoprolol. Qualifiers: Qualified Codes: I10 - Essential (primary) hypertension Status: Chronic (7) CAD (coronary artery disease) Assessment & Plan: Resume home statin. Status: Chronic (8) COPD (chronic obstructive pulmonary disease) Assessment & Plan: Resume home inhalers, is on baseline supplemental oxygen. Status: Chronic (9) Hyperkalemia Assessment & Plan: Resolved with IVF overnight. Status: Resolved Resolution Date/Time: 07/18/19 @ 14:11 (10) Hyperchloremia Assessment & Plan: Change IVF to 1/2 NS Status: Acute (11) Hyponatremia Assessment & Plan: Resolved with IVF overnight. Status: Resolved Resolution Date/Time: 07/18/19 @ 14:11 (12) Weakness Assessment & Plan: PT to eval for home safety Status: Acute (13) DVT prophylaxis Assessment & Plan: Enoxaparin Status: Acute Chief Complaint/HPI Chief Complaint/HPI Came in due to vomiting and diarrhea and chills for 2-3 days. Also complains of shortness of breath and chest pain, reports she was recently in for walking pneumonia but is off of antibiotics. On baseline oxygen. Discharge Summary-Simple/Stand Consultations Discharge Physical Examination Allergies: Coded Allergies: Penicillins (Verified Allergy, Mild, Hives, 07/23/18) Xwcrptp-Odr-Zjn Reductase Inhibitor (Verified Allergy, Unknown, TAKES ATORVASTATIN AT HOME, 06/15/19) amlodipine besylate (Verified Allergy, Unknown, TAKES AMLODIPINE AT HOME, 06/15/19) benazepril HCl (Verified Allergy, Unknown, 07/23/18) aspirin (Verified Adverse Reaction, Mild, Nausea, 07/23/18) codeine (Verified Adverse Reaction, Mild, Nausea, 07/23/18) tramadol (Verified Adverse Reaction, Mild, N/V, 07/23/18) Vitals & I&Os Vital Sign - Last 12Hours Date Time Temp Pulse Resp B/P (MAP) Pulse Ox O2 Delivery O2 Flow Rate FiO2 07/20/19 09:49 96 Nasal Cannula 3.00 07/19/19 23:00 97.6 72 19 141/81 (101) Intake and Output 07/20/19 00:00 Intake Total 980 ml Output Total 1275 ml Balance -295 ml General Appearance: Alert, No Acute Distress Respiratory: Clear to Auscultation, Normal Air Movement Cardiovascular: Regular Rate, No Murmurs Neuro: Normal Speech Psych/Mental Status: Mental Status NL Hospital Course Was the Problem List Reviewed?: Yes See final discharge diagnosis. Labs Laboratory Tests Test 07/18/19 16:28 07/18/19 20:54 07/19/19 04:02 07/19/19 11:25 Range/Units Glucometer 114 H 123 H 98 70-110 MG/DL White Blood Count 4.7 4.3-11.0 10^3/uL Red Blood Count 3.77 L 4.35-5.85 10^6/uL Hemoglobin 8.0 L 11.5-16.0 G/DL Hematocrit 28 L 35-52 % Mean Corpuscular Volume 75 L 80-99 FL Mean Corpuscular Hemoglobin 21 L 25-34 PG Mean Corpuscular Hemoglobin Concent 28 L 32-36 G/DL Red Cell Distribution Width 22.2 H 10.0-14.5 % Platelet Count 255 130-400 10^3/uL Mean Platelet Volume 10.0 7.4-10.4 FL Neutrophils (%) (Auto) 53 42-75 % Lymphocytes (%) (Auto) 25 12-44 % Monocytes (%) (Auto) 16 H 0-12 % Eosinophils (%) (Auto) 5 0-10 % Basophils (%) (Auto) 0 0-10 % Neutrophils # (Auto) 2.5 1.8-7.8 X 10^3 Lymphocytes # (Auto) 1.2 1.0-4.0 X 10^3 Monocytes # (Auto) 0.8 0.0-1.0 X 10^3 Eosinophils # (Auto) 0.3 0.0-0.3 10^3/uL Basophils # (Auto) 0.0 0.0-0.1 10^3/uL Sodium Level 141 135-145 MMOL/L Potassium Level 4.1 3.6-5.0 MMOL/L Chloride Level 114 H 98-107 MMOL/L Carbon Dioxide Level 21 21-32 MMOL/L Anion Gap 6 5-14 MMOL/L Blood Urea Nitrogen 16 7-18 MG/DL Creatinine 0.59 L 0.60-1.30 MG/DL Estimat Glomerular Filtration Rate > 60 BUN/Creatinine Ratio 27 Glucose Level 88 70-105 MG/DL Calcium Level 7.4 L 8.5-10.1 MG/DL Phosphorus Level 2.1 L 2.3-4.7 MG/DL Magnesium Level 1.8 1.6-2.4 MG/DL Vancomycin Level Trough 13.4 10.0-20.0 UG/ML Test 07/19/19 16:21 07/19/19 21:05 07/20/19 05:14 07/20/19 05:30 Range/Units Glucometer 130 H 95 89 70-110 MG/DL White Blood Count 5.3 4.3-11.0 10^3/uL Red Blood Count 3.89 L 4.35-5.85 10^6/uL Hemoglobin 8.2 L 11.5-16.0 G/DL Hematocrit 29 L 35-52 % Mean Corpuscular Volume 74 L 80-99 FL Mean Corpuscular Hemoglobin 21 L 25-34 PG Mean Corpuscular Hemoglobin Concent 29 L 32-36 G/DL Red Cell Distribution Width 22.2 H 10.0-14.5 % Platelet Count 280 130-400 10^3/uL Mean Platelet Volume 9.9 7.4-10.4 FL Sodium Level 139 135-145 MMOL/L Potassium Level 3.8 3.6-5.0 MMOL/L Chloride Level 110 H 98-107 MMOL/L Carbon Dioxide Level 23 21-32 MMOL/L Anion Gap 6 5-14 MMOL/L Blood Urea Nitrogen 7 7-18 MG/DL Creatinine 0.52 L 0.60-1.30 MG/DL Estimat Glomerular Filtration Rate > 60 BUN/Creatinine Ratio 13 Glucose Level 88 70-105 MG/DL Calcium Level 7.3 L 8.5-10.1 MG/DL Corrected Calcium 9.0 8.5-10.1 MG/DL Phosphorus Level 2.1 L 2.3-4.7 MG/DL Magnesium Level 1.0 *L 1.6-2.4 MG/DL Total Bilirubin 0.2 0.1-1.0 MG/DL Aspartate Amino Transf (AST/SGOT) 14 5-34 U/L Alanine Aminotransferase (ALT/SGPT) < 6 0-55 U/L Alkaline Phosphatase 84 40-136 U/L Total Protein 4.8 L 6.4-8.2 GM/DL Albumin 1.9 L 3.2-4.5 GM/DL Test 07/20/19 11:06 07/20/19 12:45 Range/Units Glucometer 151 H 70-110 MG/DL Magnesium Level 1.6 1.6-2.4 MG/DL Radiology Reviewed CXR stable findings at lung bases thought to be scarring or persistent atelectasis Discharge Instructions to patient/family Please see electronic discharge instructions given to patient. Discharge Medications Reviewed and agree with Discharge Medication list on patient's Discharge Instruction sheet Clinical Quality Measures DVT/VTE Risk/Contraindication: Risk Factor Score Per Nursin RFS Level Per Nursing on Admit: 4+=Very High Copy Copies To 1: KIMBERLY Ventura BETHANY N MD Jul 20, 2019 10:22
--- NOTE | 2019-07-20 12:52 | Pulmonary Progress Note ---
Subjective Date Seen by a Provider: Jul 19, 2019 (late note) Time Seen by a Provider: 12:51 Subjective/Events-last exam Pt appears to be doing better Sepsis Event Evaluation Height, Weight, BMI Height: 5'7.00" Weight: 192lbs. 14.0oz. 87.062340yd; 28.5 BMI Method:Stated Focused Exam Lactate Level 07/17/19 13:32: Lactic Acid Level 3.95*H 07/17/19 18:50: Lactic Acid Level 2.06*H 07/18/19 03:16: Lactic Acid Level 0.57 Exam Exam Vital Signs Date Time Temp Pulse Resp B/P (MAP) Pulse Ox O2 Delivery O2 Flow Rate FiO2 07/20/19 09:49 96 Nasal Cannula 3.00 07/20/19 07:45 96 Nasal Cannula 3.00 07/19/19 23:00 97.6 72 19 141/81 (101) 96 Nasal Cannula 3.00 07/19/19 20:00 Nasal Cannula 3.00 07/19/19 16:00 97.8 79 18 137/73 (94) 93 Nasal Cannula 3.00 I & O 07/20/19 07:00 Intake Total 1280 ml Output Total 2575 ml Balance -1295 ml Height & Weight Height: 5'7.00" Weight: 192lbs. 14.0oz. 87.887068cw; 28.5 BMI Method:Stated General Appearance: No Apparent Distress, WD/WN, Obese HEENT: PERRL/EOMI, Normal ENT Inspection, Pharynx Normal, Other (mucous membranes dry) Neck: Normal Inspection Respiratory: Lungs Clear, Normal Breath Sounds, No Accessory Muscle Use, No Respiratory Distress Cardiovascular: No Edema, No Murmur, Tachycardia Capillary Refill: Less Than 3 Seconds Gastrointestinal: normal bowel sounds, non tender, soft Extremity: Normal Inspection, No Pedal Edema, Other (amputation right lower extremity) Neurologic/Psychiatric: Alert, Oriented x3, No Motor/Sensory Deficits, Normal Mood/Affect, director of 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
[2019-07-20 13:55] VITALS: BP 161/72
[2019-07-20] MEDS ORDERED: ENOXAPARIN 40 MG/0.4 ML (LOVENOX) SYR SQ SCH (14:15)
== END 2019-07-20 14:00 | disposition home or self-care (01) | DRG 872 ==
LOC: EDUNIT# 13:19 → ER 13:21 → ICU 15:34 → 4TH 07-18 14:57
PROVIDERS: ADMIT Internal Medicine; ATTEND Family Medicine
DX: A41.9 Sepsis, unspecified organism (principal); N39.0 Urinary tract infection, site not specified; J98.11 Atelectasis; E87.2 Acidosis; E87.1 Hypo-osmolality and hyponatremia; K52.1 Toxic gastroenteritis and colitis; T36.95XA Adverse effect of unspecified systemic antibiotic, initial encounter; E86.0 Dehydration; R07.9 Chest pain, unspecified; I25.10 Atherosclerotic heart disease of native coronary artery without angina pectoris; I25.2 Old myocardial infarction; I10 Essential (primary) hypertension; J43.9 Emphysema, unspecified; E11.9 Type 2 diabetes mellitus without complications; G89.29 Other chronic pain; E87.5 Hyperkalemia; E87.8 Other disorders of electrolyte and fluid balance, not elsewhere classified; E83.42 Hypomagnesemia; F17.210 Nicotine dependence, cigarettes, uncomplicated; K21.9 Gastro-esophageal reflux disease without esophagitis; G43.909 Migraine, unspecified, not intractable, without status migrainosus; F41.9 Anxiety disorder, unspecified; F32.9 Major depressive disorder, single episode, unspecified; D64.9 Anemia, unspecified; I72.9 Aneurysm of unspecified site; Z99.81 Dependence on supplemental oxygen; Z95.5 Presence of coronary angioplasty implant and graft; Z79.84 Long term (current) use of oral hypoglycemic drugs; Z89.511 Acquired absence of right leg below knee
CPT/HCPCS: 36415; 51702; 71045; 80048; 80053; 80202; 81000; 82962; 83605; 83690; 83735; 84100; 84484; 85007; 85025; 85027; 86141; 87040; 87081; 87088; 87324; 87449; 93005; 94640; 94760

== ENCOUNTER 2019-08-10 11:38 | Inpatient (IN) | payer MEDICAID ==
[~2019-08-10] VITALS: Ht 170.2 cm; Wt 82.5 kg
[~2019-08-10 11:38] MED LIST changes: +BUDE10.2 INH; +HYDR50TA76 PO; +NF-FOSFPKT PO; +VILA40TA PO
[2019-08-10] MEDS ORDERED: IBUPROFEN 800 MG (MOTRIN) TAB PO STA (11:43)
[2019-08-10 12:04] LABS: BASOPHILS % (AUTO) 0 % (0-10); EOSINOPHILS # (AUTO) 0.1 10^3/uL (0.0-0.3); EOSINOPHILS % (AUTO) 1 % (0-10); HEMATOCRIT 34 % (35-52); HEMOGLOBIN 9.6 G/DL (11.5-16.0); LYMPHOCYTES # (AUTO) 2.2 X 10^3 (1.0-4.0); LYMPHOCYTES % (AUTO) 21 % (12-44); MEAN CORPUSCULAR HEMOGLOBIN 21 PG (25-34); MEAN CORPUSCULAR HGB CONC 28 G/DL (32-36); MEAN CORPUSCULAR VOLUME 75 FL (80-99); MEAN PLATELET VOLUME 9.8 FL (7.4-10.4); MONOCYTES # (AUTO) 1.3 X 10^3 (0.0-1.0); MONOCYTES % (AUTO) 12 % (0-12); NEUTROPHILS # (AUTO) 6.9 X 10^3 (1.8-7.8); NEUTROPHILS % (AUTO) 66 % (42-75); PLATELET COUNT 429 10^3/uL (130-400); RED CELL DISTRIBUTION WIDTH 21.1 % (10.0-14.5); WHITE BLOOD COUNT 10.5 10^3/uL (4.3-11.0)
--- NOTE | 2019-08-10 12:08 | Diagnostic Imaging Report ---
INDICATION: Nausea, vomiting, and diarrhea. COMPARISON: 07/18/2019. FINDINGS: New patchy consolidations within the right middle lobe. No pleural effusion or pneumothorax. Heart is normal in size. IMPRESSION: New right middle lobe pneumonia. Advise followup PA and lateral chest radiographs in 4 weeks after appropriate medical management to ensure resolution. Dictated by: Dictated on workstation # [id number]
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
[2019-08-10 13:00] LABS: ALANINE AMINOTRANSFERASE 9 U/L (0-55); ALBUMIN 2.9 GM/DL (3.2-4.5); ALKALINE PHOSPHATASE 82 U/L (40-136); BILIRUBIN,TOTAL 0.3 MG/DL (0.1-1.0); BUN/CREATININE RATIO 24; CALCIUM 8.2 MG/DL (8.5-10.1); CARBON DIOXIDE 27 MMOL/L (21-32); CHLORIDE 104 MMOL/L (98-107); GFR ESTIMATED > 60; GLUCOSE 82 MG/DL (70-105); POTASSIUM 4.1 MMOL/L (3.6-5.0); SODIUM 141 MMOL/L (135-145); TOTAL PROTEIN 6.5 GM/DL (6.4-8.2)
[2019-08-10] MEDS ORDERED: NS IV 1000 ML 1,000 ML IV SCH (13:31)
[2019-08-10] MEDS ORDERED: MEROPENEM 500 MG in WATER (STERILE) FOR INJECTION 10 ML IV ONE (13:45)
[2019-08-10 14:09] LABS: BILIRUBIN,URINE NEGATIVE (NEGATIVE); CLARITY,URINE VERY CLOUDY; COLOR,URINE YELLOW; GLUCOSE, URINE (UA) NEGATIVE (NEGATIVE); KETONES,URINE NEGATIVE (NEGATIVE); LEUKOCYTE ESTERASE ,URINE 3+ (NEGATIVE); NITRITE,URINE NEGATIVE (NEGATIVE); PH,URINE 6.5 (5-9); PROTEIN,URINE 2+ (NEGATIVE); UROBILINOGEN,URINE NORMAL (NORMAL)
[2019-08-10 14:16] LABS: BACTERIA,URINE LARGE /HPF; WBC,URINE TNTC /HPF
[2019-08-10 14:46] VITALS: BP 144/64
[2019-08-10] MEDS ORDERED: VANCOMYCIN 1,750 MG/NS 500 ML IVPB IV NR ×2 (15:01)
[2019-08-10] MEDS ORDERED: ONDANSETRON 4 MG/2 ML (SDV) Z0FRAN IV PRN (15:15)
[2019-08-10] MEDS ORDERED: ACETAMINOPHEN 325 MG TABLET PO PRN (15:15)
[2019-08-10 15:24] VITALS: BP 144/64
[2019-08-10] MEDS ORDERED: OXYB15TA PO (16:00)
--- NOTE | 2019-08-10 16:00 | NUR ---
Received report from GIOVANI Zhao. Agree with previous edge gluer. This RN assumes care at this time.
[2019-08-10] MEDS: OSELTAMIVIR 75 MG (TAMIFLU) CAPSULE PO SCH ×2 (16:05→20:35)
[2019-08-10] MEDS: NS IV 1000 ML 1,000 ML IV SCH (16:06)
--- NOTE | 2019-08-10 16:07 | NUR ---
SPOKE WITH THE PATIENT ABOUT HER MEDICATIONS. WE WENT OVER THE EXT MED HX AND SHE VERIFIED HOW SHE TAKES THEM. SHE IS NO LONGER TAKING THE FOLLOWIN08-03-19 PREDNISONE 5 DAY THERAPY (FINISHED) 08-03-19 DICLOFENAC 75MG #60/30 DAYS (NO LONGER TAKING) 08-03-19 DOXYCYCLINE #20/10 DAYS (NO LONGER TAKING, MADE HER SICK) 08-03-19 MIRTAZAPINE 15MG #30 (NO LONGER TAKING) 08-02-19 HYDROXYZINE 50MG #30 (NO LONGER TAKING) 07-11-19 BACLOFEN 10MG #90 (CHANGED TO FLEXERIL) 07-05-19 NAPROXEN 500MG #60/30 DAYS (NO LONGER TAKING) SHE STATES SHE IS NOT TAKING ANY ANTIINFLAMMATORY RIGHT NOW, SHE TAKES GABAPENTIN AND TYLENOL OTC PRN. SHE STATES SHE IS TAKING THE OXYBUTYNIN DESPITE IT BEING ORDERED TO STOP AT HER LAST DISCHARGE, SHE VERIFIED SHE TAKES IT WELL THE TOVIAZ AT NIGHT.
[2019-08-10] MEDS: RT-ALBUTEROL/IPRATROPIUM 3 ML (DUONEB) VIAL IH SCH ×3 (16:11→21:26)
[2019-08-10] MEDS ORDERED: RT-ALBUTEROL/IPRATROPIUM 3 ML (DUONEB) VIAL INH PRN (16:30)
[2019-08-10 16:45] VITALS: BP 104/65
[2019-08-10] MEDS: MEROPENEM 500 MG/SWFI 10 ML IV PUSH IV SCH ×2 (20:35)
[2019-08-10 20:58] VITALS: BP 182/88
[2019-08-10] MEDS ORDERED: amLODIPine 5 MG (NORVASC) TAB ONE (21:12)
--- NOTE | 2019-08-10 21:15 | NUR ---
Dr. Sewell notified of increased BP (182/88, 190/87), HR (111), Respirations at 38 and temp at 101.1. Also, pt is now requiring 7L O2 to keep sats at 90%. New order rec to restart & give home medications of Norvasc and Toprol and also instructed to have RT give additional breathing treatment now. Will continue to monitor and update doctor as needed.
[2019-08-10] MEDS ORDERED: meTOprolol TARTRATE 25 MG (LOPRESSOR) TABLET ONE (21:18)
[2019-08-10] MEDS: meTOprolol TARTRATE 25 MG (LOPRESSOR) TABLET PO SCH (21:27)
[2019-08-10 21:34] VITALS: BP 182/88
[2019-08-10 22:20] VITALS: BP 168/77
--- NOTE | 2019-08-10 22:30 | NUR ---
Dr. Sewell notified of most current vital signs (102.9 - temp, 98 HR, 36 Resp, 168/77 & 97% on 7L after tx). New order rec to place pt on VapoTherm. Respiratory notified. Will continue to monitor.
--- NOTE | 2019-08-10 22:35 | NUR ---
New order rec to redraw Lactic Acid.
[2019-08-10] MEDS: IBUPROFEN 600 MG (MOTRIN) TAB PO PRN (22:41)
--- NOTE | 2019-08-10 22:45 | NUR ---
Dr. Sewell notified of Lactic acid level at 1.17.
[2019-08-10] MEDS: RT-ALBUTEROL/IPRATROPIUM 3 ML (DUONEB) VIAL INH SCH (23:22)
[2019-08-11] VITALS (7 sets, daily range): BP systolic 108–148; BP diastolic 55–71
[2019-08-11] MEDS: RT-ALBUTEROL/IPRATROPIUM 3 ML (DUONEB) VIAL INH SCH ×7 (01:43→22:02)
[2019-08-11] MEDS ORDERED: RT-ALBUTEROL/IPRATROPIUM 3 ML (DUONEB) VIAL ONE ×2 (01:47→03:32)
[2019-08-11] MEDS: MEROPENEM 500 MG/SWFI 10 ML IV PUSH IV SCH ×8 (02:07→20:07)
[2019-08-11] MEDS: VANCOMYCIN 1250 MG/NS 250 ML IVPB IV SCH ×4 (02:53→14:48)
[2019-08-11 05:58] LABS: BASOPHILS % (AUTO) 0 % (0-10); EOSINOPHILS # (AUTO) 0.1 10^3/uL (0.0-0.3); EOSINOPHILS % (AUTO) 1 % (0-10); HEMATOCRIT 29 % (35-52); HEMOGLOBIN 8.2 G/DL (11.5-16.0); LYMPHOCYTES # (AUTO) 1.3 X 10^3 (1.0-4.0); LYMPHOCYTES % (AUTO) 11 % (12-44); MEAN CORPUSCULAR HEMOGLOBIN 21 PG (25-34); MEAN CORPUSCULAR HGB CONC 28 G/DL (32-36); MEAN CORPUSCULAR VOLUME 75 FL (80-99); MEAN PLATELET VOLUME 9.8 FL (7.4-10.4); MONOCYTES # (AUTO) 1.1 X 10^3 (0.0-1.0); MONOCYTES % (AUTO) 9 % (0-12); NEUTROPHILS # (AUTO) 9.9 X 10^3 (1.8-7.8); NEUTROPHILS % (AUTO) 80 % (42-75); PLATELET COUNT 354 10^3/uL (130-400); RED CELL DISTRIBUTION WIDTH 20.9 % (10.0-14.5); WHITE BLOOD COUNT 12.4 10^3/uL (4.3-11.0)
[2019-08-11] MEDS ORDERED: RT-ALBUTEROL/IPRATROPIUM 3 ML (DUONEB) VIAL INH SCH (06:00)
[2019-08-11 06:39] LABS: ALANINE AMINOTRANSFERASE 6 U/L (0-55); ALBUMIN 2.2 GM/DL (3.2-4.5); ALKALINE PHOSPHATASE 73 U/L (40-136); BILIRUBIN,TOTAL 0.2 MG/DL (0.1-1.0); BUN/CREATININE RATIO 28; CALCIUM 7.7 MG/DL (8.5-10.1); CARBON DIOXIDE 24 MMOL/L (21-32); CHLORIDE 111 MMOL/L (98-107); CREATININE SERUM 0.57 MG/DL (0.60-1.30); GFR ESTIMATED > 60; GLUCOSE 93 MG/DL (70-105); SODIUM 142 MMOL/L (135-145); TOTAL PROTEIN 5.1 GM/DL (6.4-8.2)
[2019-08-11] MEDS: NS IV 1000 ML 1,000 ML IV SCH ×2 (06:40→08:35)
[2019-08-11] MEDS: meTOprolol TARTRATE 25 MG (LOPRESSOR) TABLET PO SCH ×2 (08:24→20:07)
[2019-08-11] MEDS: amLODIPine 5 MG (NORVASC) TAB PO SCH (08:24)
[2019-08-11] MEDS: IBUPROFEN 600 MG (MOTRIN) TAB PO PRN (08:24)
[2019-08-11] MEDS: OSELTAMIVIR 75 MG (TAMIFLU) CAPSULE PO SCH ×2 (08:29→20:08)
[2019-08-11] MEDS ORDERED: NON-FORMULARY MEDICATION 1 EA EA (Amlodipine Besylate 5 MG) PO SCH (09:00)
--- NOTE | 2019-08-11 11:17 | History & Physical ---
MERARI KAMARA,MED STUDENT 08/11/19 1117: HPI History of Present Illness: 54 year old female presents with 1 week complaint of SOB, and cough. She was seen in the [facility] clinic yesterday and was reported to have an O2 sat in the low 80's on 4L nasal canula. She was taken to the ED where she continued to have low O2 saturations that then stabilized for hospital admission. She admits to fever and chills at home over the last 3 days with increasing SOB and body aches. She admits to a 1 pack/day smoking history but voiced a desire to consider quitting, she has tried Chantix in the past with very little benefit. She does admit her sister was ill with similar symptoms about a week ago. She denies any chest pain and states her shortness of breath has improved since starting medications and breathing treatments. Xin states she uses both inhalers and nebulizers at home and she has not missed a dose prior to arrival. She states her typical home oxygen need is 4L via nasal cannula. Source: patient Exam Limitations: no limitations Date seen by provider: Aug 11, 2019 Time Seen by Provider: 10:45 Attending Physician Larisa Sewell MD PCP [facility] Consult Date of Admission Aug 11, 2019 at 09:00 Home Medications Home Medications Reviewed patient Home Medication Reconciliation performed by pharmacy medication reconciliations benefits technician and/or nursing. Patients Allergies have been reviewed. Allergies Coded Allergies: Penicillins (Verified Allergy, Mild, Hives, 07/23/18) Nqthjdp-Esg-Pyd Reductase Inhibitor (Verified Allergy, Unknown, TAKES ATORVASTATIN AT HOME, 06/15/19) amlodipine besylate (Verified Allergy, Unknown, TAKES AMLODIPINE AT HOME, 06/15/19) benazepril HCl (Verified Allergy, Unknown, 07/23/18) aspirin (Verified Adverse Reaction, Mild, Nausea, 07/23/18) codeine (Verified Adverse Reaction, Mild, Nausea, 07/23/18) tramadol (Verified Adverse Reaction, Mild, N/V, 07/23/18) OEJ-Snwlyr-Rcztvi Hx Patient Social History Alcohol Use: Denies Use Recreational Drug Use: No Smoking Status: Current Everyday Smoker (1 pack/day) Type Used: Cigarettes Recent Foreign Travel: No Contact w/other who traveled: No Recent Hopitalizations: Yes (06/2019 for sepsis) Recent Infectious Disease Expo: No Immunizations Up To Date Tetanus Booster (TDap): Less than 5yrs Date of Pneumonia Vaccine: Jul 10, 2011 Date of Influenza Vaccine: Aug 20, 2018 Past Medical History PMHx: HTN Chronic pain Coronary artery disease s/p stent COPD oxygen requiring DMII Hypothyroidism PSurgHx: Hysterectomy Coronary artery stent Family Medical History Other Significan Family Hx: Patient reports she does not know Family History: Arthritis Diabetes mellitus Hypertension Review of Systems ([facility]) Constitutional: chills, fever, malaise, weakness Respiratory: cough, short of breath, wheezing Cardiovascular: No chest pain, No palpitations Gastrointestinal: No abdominal pain, No constipation; diarrhea; No nausea, No vomiting Genitourinary: no symptoms reported Musculoskeletal: back pain Skin: No rash Psychiatric/Neurological: Other (sleep disturbance) Reviewed Test Results Reviewed Test Results Lab Laboratory Tests 08/10/19 11:50: White Blood Count 10.5, Red Blood Count 4.59, Hemoglobin 9.6L, Hematocrit 34L, Mean Corpuscular Volume 75L, Mean Corpuscular Hemoglobin 21L, Mean Corpuscular Hemoglobin Concent 28L, Red Cell Distribution Width 21.1H, Platelet Count 429H, Mean Platelet Volume 9.8, Neutrophils (%) (Auto) 66, Lymphocytes (%) (Auto) 21, Monocytes (%) (Auto) 12, Eosinophils (%) (Auto) 1, Basophils (%) (Auto) 0, Neutrophils # (Auto) 6.9, Lymphocytes # (Auto) 2.2, Monocytes # (Auto) 1.3H, Eosinophils # (Auto) 0.1, Basophils # (Auto) 0.0, Sodium Level 141, Potassium Level 4.1, Chloride Level 104, Carbon Dioxide Level 27, Anion Gap 10, Blood Urea Nitrogen 17, Creatinine 0.70, Estimat Glomerular Filtration Rate > 60, BUN/Creatinine Ratio 24, Glucose Level 82, Calcium Level 8.2L, Corrected Calcium 9.1, Magnesium Level 1.8, Iron Level 15L, Total Iron Binding Capacity 321, Unsaturated Iron Binding Capacity 306, Transferrin % Saturation 5L, Ferritin 31.7, Total Bilirubin 0.3, Aspartate Amino Transf (AST/SGOT) 12, Alanine Aminotransferase (ALT/SGPT) 9, Alkaline Phosphatase 82, Total Protein 6.5, Albumin 2.9L 08/10/19 13:53: Lactic Acid Level 0.78 08/10/19 14:05: Urine Color YELLOW, Urine Clarity VERY CLOUDYH, Urine pH 6.5, Urine Specific [place] 1.010L, Urine Protein 2+H, Urine Glucose (UA) NEGATIVE, Urine Ketones NEGATIVE, Urine Nitrite NEGATIVE, Urine Bilirubin NEGATIVE, Urine Urobilinogen NORMAL, Urine Leukocyte Esterase 3+H, Urine RBC (Auto) 2+H, Urine RBC 2-5H, Urine WBC TNTCH, Urine Crystals NONE, Urine Bacteria LARGEH, Urine Casts NONE, Urine Mucus NEGATIVE, Urine Culture Indicated YES 08/10/19 22:45: Lactic Acid Level 1.17 08/11/19 05:40: White Blood Count 12.4H, Red Blood Count 3.89L, Hemoglobin 8.2L, Hematocrit 29L, Mean Corpuscular Volume 75L, Mean Corpuscular Hemoglobin 21L, Mean Corpuscular Hemoglobin Concent 28L, Red Cell Distribution Width 20.9H, Platelet Count 354, Mean Platelet Volume 9.8, Neutrophils (%) (Auto) 80H, Lymphocytes (%) (Auto) 11L, Monocytes (%) (Auto) 9, Eosinophils (%) (Auto) 1, Basophils (%) (Auto) 0, Neutrophils # (Auto) 9.9H, Lymphocytes # (Auto) 1.3, Monocytes # (Auto) 1.1H, Eosinophils # (Auto) 0.1, Basophils # (Auto) 0.0, Sodium Level 142, Potassium Level 4.0, Chloride Level 111H, Carbon Dioxide Level 24, Anion Gap 7, Blood Urea Nitrogen 16, Creatinine 0.57L, Estimat Glomerular Filtration Rate > 60, BUN/Creatinine Ratio 28, Glucose Level 93, Calcium Level 7.7L, Corrected Calcium 9.1, Total Bilirubin 0.2, Aspartate Amino Transf (AST/SGOT) 13, Alanine Aminotransferase (ALT/SGPT) 6, Alkaline Phosphatase 73, Total Protein 5.1L, Albumin 2.2L Microbiology 08/10/19 Influenza Types A,B Antigen ([facility]Y) - Final, Complete Radiology CXR: New right middle lobe pneumonia. Advise followup PA and lateral chest radiographs in 4 weeks after appropriate medical management to ensure resolution. Physical Exam-([facility]) Physical Exam Vital Signs VS - Last 72 Hours, by Label 9/11/19 08/10/19 08/10/19 08/10/19 11:38 14:36 14:46 15:24 Temp 37.8 37.0 37.0 Pulse 86 76 77 77 Resp 12 24 20 20 B/P (MAP) 141/88 (105) 138/66 144/64 144/64 Pulse Ox 95 96 97 97 O2 Delivery Nasal Cannula Room Air Nasal Cannula Nasal Cannula O2 Flow Rate 4.00 4.00 4.00 08/10/19 08/10/19 08/10/19 08/10/19 15:29 15:37 16:11 16:45 Temp 36.5 Pulse 79 78 Resp 18 B/P (MAP) 104/65 Pulse Ox 93 94 O2 Delivery Nasal Cannula Nasal Cannula Nasal Cannula O2 Flow Rate 4.00 4.00 4.00 08/10/19 08/10/19 08/10/19 08/10/19 19:00 19:18 20:35 20:58 Temp 38.4 Pulse 77 111 Resp 38 B/P (MAP) 182/88 Pulse Ox 89 90 O2 Delivery Nasal Cannula Nasal Cannula Nasal Cannula O2 Flow Rate 4.00 4.00 7.00 08/10/19 08/10/19 08/10/19 08/10/19 21:20 21:26 21:33 21:34 Temp 38.4 38.4 Pulse 78 Pulse Ox 94 91 91 O2 Delivery Nasal Cannula O2 Flow Rate 7.00 7.00 08/10/19 08/10/19 08/10/19 08/10/19 22:20 22:30 22:41 23:24 Temp 39.4 39.4 39.4 Pulse 98 Resp 36 B/P (MAP) 168/77 Pulse Ox 97 95 O2 Delivery Nasal Cannula Vapotherm O2 Flow Rate 7.00 15.00 FiO2 45 08/11/19 08/11/19 08/11/19 08/11/19 00:48 01:00 01:43 04:00 Temp 37.0 Pulse 86 82 Resp 26 B/P (MAP) 125/58 Pulse Ox 95 94 95 O2 Delivery Vapotherm Vapotherm Vapotherm O2 Flow Rate 15.00 15.00 15.00 40.00 FiO2 45 45 08/11/19 08/11/19 08/11/19 08/11/19 04:16 06:31 07:00 08:00 Temp 37.2 Pulse 75 82 Resp 24 B/P (MAP) 136/61 Pulse Ox 95 92 95 O2 Delivery Vapotherm Vapotherm Vapotherm O2 Flow Rate 15.00 15.00 15.00 45.00 FiO2 45 45 08/11/19 08/11/19 08:17 10:14 Temp 37.2 Pulse 81 Resp 38 B/P (MAP) 132/61 Pulse Ox 95 97 O2 Delivery Vapotherm Vapotherm O2 Flow Rate 15.00 15.00 45.00 FiO2 45 Capillary Refill : Less Than 3 Seconds General Appearance: WD/WN, no apparent distress Respiratory: chest non-tender, no respiratory distress, no accessory muscle use, decreased breath sounds, wheezing Cardiovascular: regular rate, rhythm, no murmur Gastrointestinal: normal bowel sounds, non tender, soft; No distended Extremities: no pedal edema Neurologic/Psychiatric: alert, normal mood/affect, oriented x 3 Skin: normal color, warm/dry Assessment/Plan Assessment/Plan Admission Dx Influenza B, RML Pneumonia, COPD, UTI Assessment & Plan Continue Tamiflu, meropenem, and vancomycin for influenza B and suspected UTI and pneumonia. Patient is currently on Vapotherm 10 lpm, will continue to try to decrease as tolerated to home oxygen level of 4L nasal cannula. Will continue to discuss smoking cessation. She would like to follow-up with Usman at [facility]. Clinical Quality Measures DVT/VTE Risk/Contraindication: Risk Factor Score Per Nursin RFS Level Per Nursing on Admit: 2=Moderate LARISA SEWELL MD 08/11/19 1838: HPI History of Present Illness: Agree with above and reviewed with patient. Patient states that she feels much better this AM. Still requiring Vapotherm this AM. Has not been up moving much yet. Source: patient Home Medications Allergies Coded Allergies: Penicillins (Verified Allergy, Mild, Hives, 07/23/18) Czoujlx-Vry-Piq Reductase Inhibitor (Verified Allergy, Unknown, TAKES ATORVASTATIN AT HOME, 06/15/19) amlodipine besylate (Verified Allergy, Unknown, TAKES AMLODIPINE AT HOME, 06/15/19) benazepril HCl (Verified Allergy, Unknown, 07/23/18) aspirin (Verified Adverse Reaction, Mild, Nausea, 07/23/18) codeine (Verified Adverse Reaction, Mild, Nausea, 07/23/18) tramadol (Verified Adverse Reaction, Mild, N/V, 07/23/18) MKJ-Yhqbvz-Dzxxff Hx Family Medical History Family History: Arthritis Diabetes mellitus Hypertension Review of Systems ([facility]) Constitutional: chills, fever, weakness EENTM: nose congestion Respiratory: cough, short of breath Cardiovascular: No chest pain, No palpitations Gastrointestinal: No abdominal pain, No constipation; diarrhea (chronic); No loss of appetite, No nausea, No vomiting Genitourinary: no symptoms reported; No dysuria, No frequency, No hematuria : No Musculoskeletal: back pain (chronic) Skin: no symptoms reported; No lesions, No rash Psychiatric/Neurological: Other (sleep disturbance) Physical Exam-([facility]) Physical Exam General Appearance: WD/WN, no apparent distress Neck: non-tender, full range of motion Respiratory: decreased breath sounds; No accessory muscle use; crackles, wheezing Cardiovascular: normal peripheral pulses, regular rate, rhythm, no murmur Gastrointestinal: normal bowel sounds, non tender, soft; No distended, No rebound, No tenderness Back: no CVA tenderness Extremities: no pedal edema, no calf tenderness, normal capillary refill 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 as tested, alert, normal mood/affect, oriented x 3 Skin: normal color, warm/dry Lymphatic: no adenopathy Assessment/Plan Assessment/Plan Admission Status: Inpatient Order (span 2 midnights) Reason for Inpatient Admission: Patient requiring increased oxygen requirement and IV antibiotics (1) HCAP (healthcare-associated pneumonia) Status: Acute Assessment & Plan: - Recent admission, covering for HCAP, D2 Meropenum/Vanco (2) Influenza B Status: Acute Assessment & Plan: - High risk patient, D2 Tamiflu (3) Urinary tract infection Status: Acute Assessment & Plan: - Cultures pending, Patient on Meropenum Qualifiers: Qualified Codes: N30.01 - Acute cystitis with hematuria (4) Microcytic anemia Status: Chronic Assessment & Plan: - Iron Def, Will give IV venofer (5) Hypothyroidism Status: Chronic Assessment & Plan: - Continue home meds Qualifiers: Qualified Codes: E03.9 - Hypothyroidism, unspecified (6) COPD (chronic obstructive pulmonary disease) Status: Chronic Qualifiers: Qualified Codes: J44.0 - Chronic obstructive pulmonary disease with acute lower respiratory infection (7) CAD (coronary artery disease) Status: Chronic Qualifiers: Qualified Codes: I25.10 - Atherosclerotic heart disease of [place] coronary artery without angina pectoris (8) Diabetes mellitus type 2 Onset Date: 05/23/2014 Status: Chronic Assessment & Plan: - Hold metformin, SSI Qualifiers: Qualified Codes: E11.65 - Type 2 diabetes mellitus with hyperglycemia (9) Hypertension Status: Chronic Qualifiers: Qualified Codes: I10 - Essential (primary) hypertension (10) DVT prophylaxis Status: Acute Assessment & Plan: - Lovenox/SCDs Supervisory-Addendum Brief Verification & Attestation Participated in pt care: history, physical Personally performed: exam, history Care discussed with: Medical Student Procedures: n/a I personally have seen and evaluated the patient and performed the physical exam. I agree with the documented assessment and plan. MERARI KAMARA,MED STUDENT Aug 11, 2019 11:17 LARISA SEWELL MD Aug 11, 2019 18:38
--- NOTE | 2019-08-11 13:10 | NUR ---
Pastoral care visit.
[2019-08-11] MEDS ORDERED: RT-ALBUTEROL/IPRATROPIUM 3 ML (DUONEB) VIAL INH PRN (16:00)
[2019-08-11] MEDS ORDERED: IRON SUCROSE 200 MG/10 ML (VENOFER) VIAL IV NR (18:45)
[2019-08-11] MEDS ORDERED: ENOXAPARIN 40 MG/0.4 ML (LOVENOX) SYR SQ SCH (19:00)
[2019-08-11] MEDS: IRON SUCROSE 200 MG/10 ML (VENOFER) VIAL IV NR (20:06)
[2019-08-11] MEDS: GABAPENTIN 600 MG (NEURONTIN) TAB PO SCH (20:07)
[2019-08-11] MEDS: ENOXAPARIN 40 MG/0.4 ML (LOVENOX) SYR SQ SCH (20:07)
[2019-08-12] VITALS: BP 133/62
[2019-08-12] MEDS: RT-ALBUTEROL/IPRATROPIUM 3 ML (DUONEB) VIAL INH SCH ×5 (02:10→22:47)
[2019-08-12] MEDS: MEROPENEM 500 MG/SWFI 10 ML IV PUSH IV SCH ×8 (02:21→20:53)
[2019-08-12] MEDS: VANCOMYCIN 1250 MG/NS 250 ML IVPB IV SCH ×4 (02:21→14:55)
[2019-08-12 04:24] VITALS: BP 166/79
[2019-08-12] MEDS: PANTOPRAZOLE 40 MG (PROTONIX) TAB PO SCH (06:12)
[2019-08-12] MEDS: LEVOTHYROXINE 50 MCG (LEVOTHROID) TAB PO SCH (06:12)
[2019-08-12] MEDS: NS IV 1000 ML 1,000 ML IV SCH ×2 (07:19→20:35)
[2019-08-12 08:00] VITALS: BP 106/69
[2019-08-12 08:58] LABS: BASOPHILS % (AUTO) 0 % (0-10); EOSINOPHILS # (AUTO) 0.2 10^3/uL (0.0-0.3); EOSINOPHILS % (AUTO) 3 % (0-10); HEMATOCRIT 30 % (35-52); HEMOGLOBIN 8.3 G/DL (11.5-16.0); LYMPHOCYTES # (AUTO) 1.4 X 10^3 (1.0-4.0); LYMPHOCYTES % (AUTO) 17 % (12-44); MEAN CORPUSCULAR HEMOGLOBIN 21 PG (25-34); MEAN CORPUSCULAR HGB CONC 28 G/DL (32-36); MEAN CORPUSCULAR VOLUME 76 FL (80-99); MEAN PLATELET VOLUME 10.8 FL (7.4-10.4); MONOCYTES # (AUTO) 0.9 X 10^3 (0.0-1.0); MONOCYTES % (AUTO) 11 % (0-12); NEUTROPHILS # (AUTO) 5.5 X 10^3 (1.8-7.8); NEUTROPHILS % (AUTO) 69 % (42-75); PLATELET COUNT 308 10^3/uL (130-400); RED CELL DISTRIBUTION WIDTH 20.8 % (10.0-14.5)
[2019-08-12] MEDS ORDERED: VILAZODONE 40 MG (VIIBRYD) TABLET (NON-FORMULARY) PO SCH (09:00)
[2019-08-12] MEDS ORDERED: CETIRIZINE HCL 10 MG PO SCH (09:00)
[2019-08-12] MEDS: OSELTAMIVIR 75 MG (TAMIFLU) CAPSULE PO SCH ×2 (09:03→21:00)
[2019-08-12] MEDS: meTOprolol TARTRATE 25 MG (LOPRESSOR) TABLET PO SCH ×2 (09:03→20:55)
[2019-08-12] MEDS: amLODIPine 5 MG (NORVASC) TAB PO SCH (09:03)
[2019-08-12] MEDS: LORATADINE (CLARITIN) 10 MG TAB PO SCH (09:03)
[2019-08-12] MEDS: GABAPENTIN 600 MG (NEURONTIN) TAB PO SCH ×2 (09:03→20:55)
[2019-08-12 09:23] LABS: BUN/CREATININE RATIO 18; CALCIUM 8.1 MG/DL (8.5-10.1); CARBON DIOXIDE 22 MMOL/L (21-32); CHLORIDE 109 MMOL/L (98-107); CREATININE SERUM 0.67 MG/DL (0.60-1.30); GFR ESTIMATED > 60; GLUCOSE 68 MG/DL (70-105); POTASSIUM 4.3 MMOL/L (3.6-5.0); SODIUM 142 MMOL/L (135-145)
--- NOTE | 2019-08-12 11:30 | NUR ---
Pt placed on 4 lpm n/c by RT
[2019-08-12 12:00] VITALS: BP 102/68
[2019-08-12] MEDS: IBUPROFEN 600 MG (MOTRIN) TAB PO PRN (14:34)
--- NOTE | 2019-08-12 15:35 | NUR ---
Pt Sp02 is 95% on 4 lpm n/c, Dr. Sewell notified
--- NOTE | 2019-08-12 15:41 | Progress Note ---
Subjective Subjective/Events-last exam Patient states that she is feeling much better. Still requiring Vapotherm. Tolerating PO diet and ambulation Review of Systems Pulmonary: Dyspnea, Cough Cardiovascular: No: Chest Pain, Palpitations, Edema Gastrointestinal: No: Nausea, Vomiting, Abdominal Pain Musculoskeletal: back pain (Left) Focused Exam Lactate Level 08/10/19 13:53: Lactic Acid Level 0.78 08/10/19 22:45: Lactic Acid Level 1.17 Objective Exam Last Set of Vital Signs Vital Signs Date Time Temp Pulse Resp B/P (MAP) Pulse Ox O2 Delivery O2 Flow Rate FiO2 08/12/19 14:52 Nasal Cannula 4.00 08/12/19 13:00 81 08/12/19 12:00 36.4 20 102/68 95 08/12/19 11:00 40 Capillary Refill : Less Than 3 Seconds I&O Intake and Output 08/12/19 00:00 Intake Total 1827.5 ml Output Total 300 ml Balance 1527.5 ml Intake Oral 1545 ml IV Total 282.5 ml Output Urine Total 300 ml # Voids 3 # Urine Diapers 1 # Bowel Movements 1 General: Alert, Oriented X3, Cooperative, No Acute Distress Lungs: Normal Air Movement, Other (basilar wheezing, normal work of breathing) Heart: Regular Rate, No Murmurs Abdomen: Normal Bowel Sounds, Soft, No Tenderness, No Masses Extremities: No Edema, No Tenderness/Swelling Results/Procedures Lab Laboratory Tests 08/12/19 05:20: White Blood Count 8.0, Red Blood Count 3.90L, Hemoglobin 8.3L, Hematocrit 30L, Mean Corpuscular Volume 76L, Mean Corpuscular Hemoglobin 21L, Mean Corpuscular Hemoglobin Concent 28L, Red Cell Distribution Width 20.8H, Platelet Count 308, Mean Platelet Volume 10.8H, Neutrophils (%) (Auto) 69, Lymphocytes (%) (Auto) 17, Monocytes (%) (Auto) 11, Eosinophils (%) (Auto) 3, Basophils (%) (Auto) 0, Neutrophils # (Auto) 5.5, Lymphocytes # (Auto) 1.4, Monocytes # (Auto) 0.9, Eosinophils # (Auto) 0.2, Basophils # (Auto) 0.0, Sodium Level 142, Potassium Level 4.3, Chloride Level 109H, Carbon Dioxide Level 22, Anion Gap 11, Blood Urea Nitrogen 12, Creatinine 0.67, Estimat Glomerular Filtration Rate > 60, BUN/Creatinine Ratio 18, Glucose Level 68L, Calcium Level 8.1L Microbiology 08/10/19 Blood Culture - Preliminary, Resulted No growth 08/10/19 Influenza Types A,B Antigen (HARRY) - Final, Complete 08/10/19 Urine Culture - Final, Complete Gram Pos Mixed Bacterial Gail Escherichia coli Radiology CXR: New right middle lobe pneumonia. Advise followup PA and lateral chest radiographs in 4 weeks after appropriate medical management to ensure r esolution. Assessment/Plan Assessment/Plan Assessment & Plan Continue Tamiflu, meropenem, and vancomycin for influenza B and suspected UTI and pneumonia. Patient is currently on Vapotherm 10 lpm, will continue to try to decrease as tolerated to home oxygen level of 4L nasal cannula. Will continue to discuss smoking cessation. She would like to follow-up with [facility] at [facility]. (1) HCAP (healthcare-associated pneumonia) Status: Acute Assessment & Plan: - Recent admission, covering for HCAP, D3 Meropenum/Vanco (2) Influenza B Status: Acute Assessment & Plan: - High risk patient, D3 Tamiflu (3) Urinary tract infection Status: Acute Assessment & Plan: - Patient on Meropenum 08/12: Hoff sensitive Qualifiers: Qualified Codes: N30.01 - Acute cystitis with hematuria (4) Microcytic anemia Status: Chronic Assessment & Plan: - Iron Def, Will give IV venofer (5) Hypothyroidism Status: Chronic Assessment & Plan: - Continue home meds Qualifiers: Qualified Codes: E03.9 - Hypothyroidism, unspecified (6) COPD (chronic obstructive pulmonary disease) Status: Chronic Qualifiers: Qualified Codes: J44.0 - Chronic obstructive pulmonary disease with acute lower respiratory infection (7) CAD (coronary artery disease) Status: Chronic Qualifiers: Qualified Codes: I25.10 - Atherosclerotic heart disease of [place] coronary artery without angina pectoris (8) Diabetes mellitus type 2 Onset Date: 05/23/2014 Status: Chronic Assessment & Plan: - Hold metformin, SSI Qualifiers: Qualified Codes: E11.65 - Type 2 diabetes mellitus with hyperglycemia (9) Hypertension Status: Chronic Qualifiers: Qualified Codes: I10 - Essential (primary) hypertension (10) DVT prophylaxis Status: Acute Assessment & Plan: - Lovenox/SCDs Clinical Quality Measures DVT/VTE Risk/Contraindication: Risk Factor Score Per Nursin RFS Level Per Nursing on Admit: 2=Moderate LARISA GARCIA MD Aug 12, 2019 15:41
[2019-08-12] MEDS: HYDROcodone/APAP 5 MG/325 MG (LORTAB) TAB PO PRN ×2 (15:57→20:55)
[2019-08-12 16:00] VITALS: BP 107/71
[2019-08-12] MEDS: MONTELUKAST 10 MG (SINGULAIR) TAB PO SCH (17:03)
[2019-08-12 20:00] VITALS: BP 122/78
[2019-08-12] MEDS: IRON SUCROSE 200 MG/10 ML (VENOFER) VIAL IV NR (20:53)
[2019-08-12] MEDS: ENOXAPARIN 40 MG/0.4 ML (LOVENOX) SYR SQ SCH (20:54)
[2019-08-13] VITALS: BP 120/78
[2019-08-13] MEDS: RT-ALBUTEROL/IPRATROPIUM 3 ML (DUONEB) VIAL INH SCH ×6 (02:25→22:38)
[2019-08-13 04:00] VITALS: BP 111/59
[2019-08-13] MEDS: MEROPENEM 500 MG/SWFI 10 ML IV PUSH IV SCH ×8 (04:55→20:34)
[2019-08-13] MEDS: VANCOMYCIN 1250 MG/NS 250 ML IVPB IV SCH ×4 (04:55→15:25)
[2019-08-13] MEDS: PANTOPRAZOLE 40 MG (PROTONIX) TAB PO SCH (06:42)
[2019-08-13] MEDS: LEVOTHYROXINE 50 MCG (LEVOTHROID) TAB PO SCH (06:42)
[2019-08-13 07:39] LABS: BASOPHILS % (AUTO) 0 % (0-10); EOSINOPHILS # (AUTO) 0.2 10^3/uL (0.0-0.3); EOSINOPHILS % (AUTO) 3 % (0-10); HEMATOCRIT 31 % (35-52); HEMOGLOBIN 8.6 G/DL (11.5-16.0); LYMPHOCYTES # (AUTO) 1.4 X 10^3 (1.0-4.0); LYMPHOCYTES % (AUTO) 21 % (12-44); MEAN CORPUSCULAR HEMOGLOBIN 21 PG (25-34); MEAN CORPUSCULAR HGB CONC 27 G/DL (32-36); MEAN CORPUSCULAR VOLUME 76 FL (80-99); MEAN PLATELET VOLUME 10.2 FL (7.4-10.4); MONOCYTES # (AUTO) 0.7 X 10^3 (0.0-1.0); MONOCYTES % (AUTO) 11 % (0-12); NEUTROPHILS # (AUTO) 4.3 X 10^3 (1.8-7.8); NEUTROPHILS % (AUTO) 65 % (42-75); PLATELET COUNT 381 10^3/uL (130-400); RED CELL DISTRIBUTION WIDTH 20.8 % (10.0-14.5); WHITE BLOOD COUNT 6.6 10^3/uL (4.3-11.0)
[2019-08-13 07:56] LABS: BUN/CREATININE RATIO 18; CALCIUM 8.2 MG/DL (8.5-10.1); CARBON DIOXIDE 27 MMOL/L (21-32); CHLORIDE 109 MMOL/L (98-107); CREATININE SERUM 0.66 MG/DL (0.60-1.30); GFR ESTIMATED > 60; GLUCOSE 81 MG/DL (70-105); POTASSIUM 4.2 MMOL/L (3.6-5.0); SODIUM 143 MMOL/L (135-145)
[2019-08-13 08:00] VITALS: BP 119/57
[2019-08-13] MEDS: meTOprolol TARTRATE 25 MG (LOPRESSOR) TABLET PO SCH ×2 (08:14→20:37)
[2019-08-13] MEDS: amLODIPine 5 MG (NORVASC) TAB PO SCH (08:14)
[2019-08-13] MEDS: GABAPENTIN 600 MG (NEURONTIN) TAB PO SCH ×2 (08:14→20:37)
[2019-08-13] MEDS: LORATADINE (CLARITIN) 10 MG TAB PO SCH (08:14)
[2019-08-13] MEDS: OSELTAMIVIR 75 MG (TAMIFLU) CAPSULE PO SCH ×2 (08:14→20:37)
[2019-08-13] MEDS: IRON SUCROSE 200 MG/10 ML (VENOFER) VIAL IV NR ×2 (08:14→20:00)
[2019-08-13] MEDS: NS IV 1000 ML 1,000 ML IV SCH (10:21)
[2019-08-13 12:00] VITALS: BP 124/65
--- NOTE | 2019-08-13 14:33 | Progress Note - Hospitalist ---
Subjective HPI/CC On Admission Date Seen by Provider: Aug 13, 2019 Time Seen by Provider: 14:00 Subjective/Events-last exam Patient is awake and on 4 L nasal cannula. She says that's what she usually uses at home. It shows that she was on Vapotherm overnight but she denies that. She feels strong enough to go home if possible tomorrow. She has no new complaints. She is unable to ambulate since she doesn't have her right prosthesis with her. Review of Systems Neurological: Weakness Focused Exam Lactate Level 08/10/19 22:45: Lactic Acid Level 1.17 Objective Exam Vital Signs Vital Signs Date Time Temp Pulse Resp B/P (MAP) Pulse Ox O2 Delivery O2 Flow Rate FiO2 08/13/19 13:00 69 08/13/19 12:00 36.6 20 124/65 90 Nasal Cannula 4.00 08/13/19 08:00 40 Capillary Refill : Less Than 3 Seconds General Appearance: WD/WN HEENT: Pharynx Normal Neck: Normal Inspection, Limited Range of Motion Respiratory: Chest Non Tender, Lungs Clear, Normal Breath Sounds, No Accessory Muscle Use, No Respiratory Distress Cardiovascular: Regular Rate, Rhythm Gastrointestinal: Normal Bowel Sounds, No Pulsatile Mass, Non Tender, Soft Rectal: Deferred Extremity: Other (right leg BKA) Skin: Pallor Results/Procedures Lab Laboratory Tests 08/13/19 07:12 Patient resulted labs reviewed. Assessment/Plan Assessment and Plan Assess & Plan/Chief Complaint 1. Pneumonia on meropenem and vancomycin 2. Influenza B 3. Urinary tract infection 4. Weakness 5. Type II diabetes Plan for probable discharge tomorrow Clinical Quality Measures DVT/VTE Risk/Contraindication: Risk Factor Score Per Nursin RFS Level Per Nursing on Admit: 2=Moderate MARITZA REID MD Aug 13, 2019 14:33
[2019-08-13] MEDS: MONTELUKAST 10 MG (SINGULAIR) TAB PO SCH (16:30)
[2019-08-13] MEDS: HYDROcodone/APAP 5 MG/325 MG (LORTAB) TAB PO PRN ×2 (16:35→20:37)
[2019-08-13 16:55] VITALS: BP 113/65
[2019-08-13] MEDS: ENOXAPARIN 40 MG/0.4 ML (LOVENOX) SYR SQ SCH (20:33)
[2019-08-13 20:50] VITALS: BP 113/58
[2019-08-14] VITALS: BP 132/72
[2019-08-14] MEDS: RT-ALBUTEROL/IPRATROPIUM 3 ML (DUONEB) VIAL INH SCH ×3 (04:02→11:08)
[2019-08-14 04:10] VITALS: BP 126/63
[2019-08-14] MEDS: HYDROcodone/APAP 5 MG/325 MG (LORTAB) TAB PO PRN ×2 (04:13→09:30)
[2019-08-14] MEDS: MEROPENEM 500 MG/SWFI 10 ML IV PUSH IV SCH ×4 (04:13→09:25)
[2019-08-14] MEDS: NS IV 1000 ML 1,000 ML IV SCH (04:13)
[2019-08-14] MEDS: PANTOPRAZOLE 40 MG (PROTONIX) TAB PO SCH (05:11)
[2019-08-14] MEDS: LEVOTHYROXINE 50 MCG (LEVOTHROID) TAB PO SCH (05:11)
[2019-08-14 08:00] VITALS: BP 122/60
[2019-08-14] MEDS: GABAPENTIN 600 MG (NEURONTIN) TAB PO SCH (09:23)
[2019-08-14] MEDS: IRON SUCROSE 200 MG/10 ML (VENOFER) VIAL IV NR (09:24)
[2019-08-14] MEDS: meTOprolol TARTRATE 25 MG (LOPRESSOR) TABLET PO SCH (09:24)
[2019-08-14] MEDS: LORATADINE (CLARITIN) 10 MG TAB PO SCH (09:24)
[2019-08-14] MEDS: OSELTAMIVIR 75 MG (TAMIFLU) CAPSULE PO SCH (09:24)
[2019-08-14] MEDS: amLODIPine 5 MG (NORVASC) TAB PO SCH (09:25)
[2019-08-14 11:08] VITALS: BP 122/60
[2019-08-14 12:59] VITALS: BP 110/59
[2019-08-14] MEDS ORDERED: CEFU500T63 PO (13:53)
[2019-08-14] MEDS ORDERED: HYDROcodone/APAP 5 MG/325 MG (LORTAB) TAB PO ONE (14:00)
--- NOTE | 2019-08-14 14:00 | Discharge Summary ---
Discharge Summary Hospital Course Was the Problem List Reviewed?: Yes Hospital Course Date of Admission: Aug 11, 2019 at 09:00 Admission Diagnosis : Right middle lobe pneumonia, influenza B Exacerbation of COPD Tobaccoism Family Physician/Provider: Primitivo Ambrosio Date of Discharge: 08/14/19 Discharge Diagnosis: [ Right middle lobe pneumonia Influenza B Exacerbation of COPD Type II diabetes Urinary incontinence] Hospital Course: Patient was admitted and placed on Tamiflu and vancomycin and meropenem. She improved rapidly. Originally she could only maintain her oxygenation with Vapotherm. At the time of discharge she is on 4 L nasal cannula which is what she usually is on. She is encouraged to stop smoking. All of her meds are otherwise continued. Follow-up chest x-ray to document clearing of the right middle lobe is encouraged. [ ] Labs and Pending Lab Test: Laboratory Tests 08/14/19 11:09: Glucometer 200H Microbiology 08/10/19 Blood Culture - Preliminary, Resulted No growth 08/10/19 Influenza Types A,B Antigen (HARRY) - Final, Complete 08/10/19 Urine Culture - Final, Complete Gram Pos Mixed Bacterial Gail Escherichia coli Home Meds Active Cefuroxime (Cefuroxime Axetil) 500 Mg Tablet 500 Mg PO BID 5 Days Reported Oxybutynin Chloride ER (Oxybutynin Chloride) 15 Mg Tab.er.24 15 Mg PO DAILY Viibryd (Vilazodone Hydrochloride) 40 Mg Tablet 40 Mg PO DAILY Symbicort 160-4.5 Mcg Inhaler (Budesonide/Formoterol Fumarate) 10.2 Gm Hfa.aer.ad 2 Puff INH BID Spiriva (Tiotropium [place]) 1 Inh Aerp 1 Cap IH DAILY Albuterol Sulfate 2.5 Mg/3 Ml Vial.neb 2.5 Mg NEB TID PRN Gabapentin 600 Mg Tablet 1,200 Mg PO BID TAKES 2 (600MG) TABLETS Toviaz (Fesoterodine Fumarate) 8 Mg Tab.er.24h 8 Mg PO HS Children's Cetirizine HCl (Cetirizine HCl) 10 Mg Tab.chew 10 Mg PO DAILY Rexulti (Brexpiprazole) 2 Mg Tablet 2 Mg PO DAILY Pantoprazole Sodium 40 Mg Tablet.dr 40 Mg PO DAILY Tylenol Extra Strength (Acetaminophen) 500 Mg Tablet 1,000 Mg PO Q6H PRN Cyclobenzaprine HCl 10 Mg Tablet 10 Mg PO TID PRN Amlodipine Besylate 5 Mg Tablet 5 Mg PO DAILY Montelukast Sodium 10 Mg Tablet 10 Mg PO 1700 Metoprolol Tartrate 25 Mg Tablet 25 Mg PO BID Levothyroxine Sodium 50 Mcg Tablet 50 Mcg PO DAILY Atorvastatin Calcium 40 Mg Tablet 40 Mg PO DAILY Metformin HCl 500 Mg Tablet 500 Mg PO BID Proair Hfa (Albuterol Sulfate) 1 Puff Puff 2 Puff IH Q4H PRN Assessment/Pt Instructions Right middle lobe pneumonia Influenza B Exacerbation of COPD Discharge Planning: >30 minutes discharge planning Discharge Instructions Discharge Diet: ADA Diet Discharge Physical Examination Vital Signs Vital Signs Date Time Temp Pulse Resp B/P (MAP) Pulse Ox O2 Delivery O2 Flow Rate FiO2 08/14/19 13:00 75 08/14/19 12:59 37.0 20 110/59 92 Nasal Cannula 4.00 08/13/19 08:00 40 General Appearance: No Apparent Distress, WD/WN Respiratory: Chest Non Tender, Lungs Clear, Normal Breath Sounds, No Accessory Muscle Use, No Respiratory Distress Cardiovascular: Regular Rate, Rhythm, No Edema, No Gallop, No JVD, Other (right BKA) Gastrointestinal: Normal Bowel Sounds, Non Tender, Soft Skin: Normal Color, Warm/Dry Neurologic/Psychiatric: Alert, Oriented x3, No Motor/Sensory Deficits, Normal Mood/Affect Allergies: Coded Allergies: Penicillins (Verified Allergy, Mild, Hives, 07/23/18) Toicutv-Uif-Wyv Reductase Inhibitor (Verified Allergy, Unknown, TAKES ATORVASTATIN AT HOME, 06/15/19) amlodipine besylate (Verified Allergy, Unknown, TAKES AMLODIPINE AT HOME, 06/15/19) benazepril HCl (Verified Allergy, Unknown, 07/23/18) aspirin (Verified Adverse Reaction, Mild, Nausea, 07/23/18) codeine (Verified Adverse Reaction, Mild, Nausea, 07/23/18) tramadol (Verified Adverse Reaction, Mild, N/V, 07/23/18) Discharge Summary Date of Admission Aug 11, 2019 at 09:00 Date of Discharge Discharge Diagnosis 1. Pneumonia on meropenem and vancomycin 2. Influenza B 3. Urinary tract infection 4. Weakness 5. Type II diabetes Plan for probable discharge tomorrow Clinical Quality Measures DVT/VTE Risk/Contraindication: Risk Factor Score Per Nursin RFS Level Per Nursing on Admit: 2=Moderate MARITZA REID MD Aug 14, 2019 14:00
[2019-08-14 14:10] VITALS: BP 110/59
--- NOTE | 2019-08-14 14:10 | NUR ---
MAULIK ELIZALDE demonstrates understanding of discharge instructions and accurately returns instructions upon questioning. Copy of Post-Discharge Instructions given to PT. MAULIK ELIZALDE is able to manage continuing needs after discharge. Patients belongings returned to PT. [facility] 08/14/19 at 1410. MAULIK ELIZALDE left floor via W/C, accompanied by STAFF.
[2019-08-14] MEDS ORDERED: RT-ALBUTEROL/IPRATROPIUM 3 ML (DUONEB) VIAL INH SCH (15:00)
== END 2019-08-14 14:10 | disposition home or self-care (01) | DRG 194 ==
LOC: EDUNIT# 11:38 → ER 11:40 → UNDOADMOB 13:30 → 4TH 13:30 → UNDOADMOB 13:54 → OBSVTOIN 08-11 09:00 → INTOOBSV 08-11 09:00 → UNDODISIN 08-14 14:10
PROVIDERS: ADMIT Family Medicine; ATTEND Family Medicine
DX: J10.00 Influenza due to other identified influenza virus with unspecified type of pneumonia (principal); J18.1 Lobar pneumonia, unspecified organism; N30.01 Acute cystitis with hematuria; B96.20 Unspecified Escherichia coli [E. coli] as the cause of diseases classified elsewhere; J43.9 Emphysema, unspecified; I25.10 Atherosclerotic heart disease of native coronary artery without angina pectoris; I25.2 Old myocardial infarction; E11.65 Type 2 diabetes mellitus with hyperglycemia; E11.628 Type 2 diabetes mellitus with other skin complications; I10 Essential (primary) hypertension; D50.9 Iron deficiency anemia, unspecified; R32 Unspecified urinary incontinence; E03.9 Hypothyroidism, unspecified; G89.29 Other chronic pain; G47.9 Sleep disorder, unspecified; F17.210 Nicotine dependence, cigarettes, uncomplicated; G43.909 Migraine, unspecified, not intractable, without status migrainosus; K21.9 Gastro-esophageal reflux disease without esophagitis; F41.9 Anxiety disorder, unspecified; F32.9 Major depressive disorder, single episode, unspecified; R53.1 Weakness; Z99.81 Dependence on supplemental oxygen; Z95.5 Presence of coronary angioplasty implant and graft; Z89.511 Acquired absence of right leg below knee; Z79.84 Long term (current) use of oral hypoglycemic drugs; Z86.79 Personal history of other diseases of the circulatory system
CPT/HCPCS: 36415; 71046; 80048; 80053; 81000; 82728; 82962; 83540; 83605; 83735; 85025; 85027; 87040; 87077; 87088; 87186; 87804; 94640; 94664; 94760; 96361; 96374

== ENCOUNTER → 2019-10-21 | Outpatient (CLI) | payer MEDICAID ==
[~2019-10-21] MED LIST changes: +CATHETER FLUSH 10 ML SYR IV PRN; +CEFU500T63 PO; +HOLD METFORMIN - RECEIVED CONTRAST 20 ML VIAL IV SCH; +IOHEXOL 350 MG/ML 100 ML (OMNIPAQUE 350) VIAL IV ONE; +NS 100 ML (IVPB) BAG IV ONE
[2019-10-21 08:15] LABS: BUN/CREATININE RATIO 16; CREATININE SERUM 0.79 MG/DL (0.60-1.30); GFR ESTIMATED > 60
--- NOTE | 2019-10-21 09:36 | Diagnostic Imaging Report ---
PROCEDURE: CT chest with contrast only. TECHNIQUE: Multiple contiguous axial images were obtained through the chest after administration of intravenous contrast. Auto Exposure Controls were utilized during the CT exam to meet ALARA standards for radiation dose reduction. INDICATION: Lung nodules. COMPARISON: Study compared to 06/21/2019. FINDINGS: There has been substantial improvement in right basilar lung expansion. The change may reflect reduction in atelectasis and/or resolution of prior pneumonia. There are subpleural nodules now appreciable in the right lower lobe which may have been obscured by the more consolidative process on the recent comparison, however are not present on abdominal CT of 2017. Centrilobular emphysema without bronchiectasis. No pathological-appearing thoracic lymph nodes. There are old bilateral anterior rib fractures, chronic. There are stable chronic multilevel osteoporotic vertebral body compressions. There is small hiatal hernia. There is partial visualization of the upper abdominal stent graft, patent where seen. No acute upper abdominal abnormality. IMPRESSION: Improved aeration of the right lung base. Newly apparent multifocal basilar nodules have a subpleural distribution and are admittedly indeterminate, benign versus malignant. Their size below PET threshold for sensitivity would suggest short-term follow-up in three months' time. The largest area of parenchymal density is believed to be incompletely resolved atelectasis with the masses themselves all measuring well less than 1 cm. No adenopathy or effusion. No findings of acute pneumonia. No vascular abnormality. Nonacute fractures, stable. Dictated by: Dictated on workstation # [id number]
== END ==
LOC: RAD 07:37
PROVIDERS: ATTEND Nurse Practitioner Family
DX: J18.9 Pneumonia, unspecified organism (principal); J44.9 Chronic obstructive pulmonary disease, unspecified; G47.50 Parasomnia, unspecified; G47.36 Sleep related hypoventilation in conditions classified elsewhere; G47.10 Hypersomnia, unspecified; R91.8 Other nonspecific abnormal finding of lung field; Z72.0 Tobacco use
CPT/HCPCS: 36415; 71260; 82565; 84520

== ENCOUNTER 2019-10-23 08:54 | Emergency (ER) | payer MEDICAID ==
[~2019-10-23] VITALS: Ht 170.2 cm; Wt 81.8 kg
[~2019-10-23 08:54] MED LIST changes: -CATHETER FLUSH 10 ML SYR IV PRN; -HOLD METFORMIN - RECEIVED CONTRAST 20 ML VIAL IV SCH; -IOHEXOL 350 MG/ML 100 ML (OMNIPAQUE 350) VIAL IV ONE; -NS 100 ML (IVPB) BAG IV ONE
[2019-10-23] MEDS ORDERED: morphine INJ 10 MG/ML 1ML (SYR OR VIAL) IVP STA (09:05)
[2019-10-23] MEDS ORDERED: NS IV 500 ML 500 ML IV ONE (09:05)
[2019-10-23 09:15] LABS: BASOPHILS % (AUTO) 0 % (0-10); EOSINOPHILS # (AUTO) 0.2 10^3/uL (0.0-0.3); EOSINOPHILS % (AUTO) 2 % (0-10); HEMATOCRIT 38 % (35-52); HEMOGLOBIN 10.6 G/DL (11.5-16.0); LYMPHOCYTES # (AUTO) 1.7 X 10^3 (1.0-4.0); LYMPHOCYTES % (AUTO) 19 % (12-44); MEAN CORPUSCULAR HEMOGLOBIN 23 PG (25-34); MEAN CORPUSCULAR HGB CONC 28 G/DL (32-36); MEAN CORPUSCULAR VOLUME 81 FL (80-99); MONOCYTES # (AUTO) 0.8 X 10^3 (0.0-1.0); MONOCYTES % (AUTO) 9 % (0-12); NEUTROPHILS # (AUTO) 6.4 X 10^3 (1.8-7.8); NEUTROPHILS % (AUTO) 71 % (42-75); PLATELET COUNT 299 10^3/uL (130-400); RED CELL DISTRIBUTION WIDTH 18.4 % (10.0-14.5); WHITE BLOOD COUNT 9.1 10^3/uL (4.3-11.0)
[2019-10-23] MEDS ORDERED: KETOROLAC 30 MG/ML VIAL IVP ONE (09:15)
[2019-10-23 09:34] LABS: ALANINE AMINOTRANSFERASE 9 U/L (0-55); ALBUMIN 2.9 GM/DL (3.2-4.5); ALKALINE PHOSPHATASE 71 U/L (40-136); BILIRUBIN,TOTAL 0.2 MG/DL (0.1-1.0); BUN/CREATININE RATIO 15; CALCIUM 8.1 MG/DL (8.5-10.1); CARBON DIOXIDE 24 MMOL/L (21-32); CHLORIDE 108 MMOL/L (98-107); CREATININE SERUM 0.78 MG/DL (0.60-1.30); GFR ESTIMATED > 60; GLUCOSE 104 MG/DL (70-105); POTASSIUM 4.6 MMOL/L (3.6-5.0); SODIUM 141 MMOL/L (135-145); TOTAL PROTEIN 6.7 GM/DL (6.4-8.2)
--- NOTE | 2019-10-23 10:08 | Diagnostic Imaging Report ---
INDICATION: Syed. There is patchy infiltrate like changes in the infrahilar right lower lobe seen in the frontal and lateral view increased from prior. There is redemonstrated peripheral areas of parenchymal nodularity increased. This also has progressed when correlated with the recent chest CT 10/21/2019. Heart size stable. No effusion or pneumothorax. IMPRESSION: Improved increased nodular infiltrates in the infrahilar right lower lobe. Dictated by: Dictated on workstation # [id number]
[2019-10-23] MEDS ORDERED: BACITRACIN OINTMENT 28 GM TUBE ONE (10:59)
[2019-10-23] MEDS ORDERED: TETANUS,DIPTH,PERTUSS P/F (BOOSTRIX) 0.5 ML VIAL IM ONE (11:00)
[2019-10-23] MEDS ORDERED: oxyCODONE/APAP 5/325MG (PERCOCET 5) TABLET PO ONE (11:00)
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
[2019-10-23 11:32] VITALS: BP 122/73
[2019-10-23] MEDS ORDERED: BACITRACIN OINTMENT 28 GM TUBE TOP ONE (21:00)
== END 2019-10-23 11:33 | disposition home or self-care (01) ==
LOC: EDUNIT# 08:54 → ER 08:55
DX: T24.312A Burn of third degree of left thigh, initial encounter (principal); T24.211A Burn of second degree of right thigh, initial encounter; T21.29XA Burn of second degree of other site of trunk, initial encounter; T31.0 Burns involving less than 10% of body surface; R40.2142 Coma scale, eyes open, spontaneous, at arrival to emergency department; R40.2252 Coma scale, best verbal response, oriented, at arrival to emergency department; R40.2362 Coma scale, best motor response, obeys commands, at arrival to emergency department; J43.9 Emphysema, unspecified; F17.210 Nicotine dependence, cigarettes, uncomplicated; I10 Essential (primary) hypertension; I25.2 Old myocardial infarction; E11.9 Type 2 diabetes mellitus without complications; F41.9 Anxiety disorder, unspecified; G43.909 Migraine, unspecified, not intractable, without status migrainosus; F32.9 Major depressive disorder, single episode, unspecified; D64.9 Anemia, unspecified; K21.9 Gastro-esophageal reflux disease without esophagitis; Z95.5 Presence of coronary angioplasty implant and graft; Z99.81 Dependence on supplemental oxygen; Z88.0 Allergy status to penicillin; Z88.6 Allergy status to analgesic agent; Z88.5 Allergy status to narcotic agent; Z88.8 Allergy status to other drugs, medicaments and biological substances; Z79.84 Long term (current) use of oral hypoglycemic drugs; Z82.49 Family history of ischemic heart disease and other diseases of the circulatory system; X08.8XXA Exposure to other specified smoke, fire and flames, initial encounter
CPT/HCPCS: 36415; 71046; 80053; 85025; 86141; 90471; 90715; 96361; 96374; 96375

== ENCOUNTER 2019-11-01 13:39 | Inpatient (IN) | payer MEDICAID ==
[~2019-11-01] VITALS: Ht 170.1 cm; Wt 91.2 kg
[~2019-11-01 13:39] MED LIST changes: -ASEN5TAB7 PO; -BUSP15TA60 PO; -CLON0.5T13; +CLON0.5T4; -HYDR-3820 PO; -NITR0.3T7 PO; -ONDA4TAB10 PO; +OXYB15TA18 PO
--- NOTE | 2019-11-01 13:51 | ED Cough/URI ---
General Stated Complaint: RESP DIST.;FEVER Source: patient Exam Limitations: no limitations History of Present Illness Date Seen by Provider: Nov 01, 2019 Time Seen by Provider: 13:48 Initial Comments 54-year-old female presents with shortness of breath and fever. Patient reports that she's had a cough about 3 days. She does have a history of COPD. Patient also has a reported fever is high as 103.9 immediately prior to the ER. However upon arrival to the ER she is afebrile 98 patient denies any nausea vomiting. She does have chronic shortness of breath is on 4 L of home oxygen. Allergies and Home Medications Allergies Coded Allergies: Penicillins (Verified Allergy, Mild, Hives, 07/23/18) Spzqjfl-Ydh-Qcb Reductase Inhibitor (Verified Allergy, Unknown, TAKES ATORVASTATIN AT HOME, 06/15/19) amlodipine besylate (Verified Allergy, Unknown, TAKES AMLODIPINE AT HOME, 06/15/19) benazepril HCl (Verified Allergy, Unknown, 07/23/18) aspirin (Verified Adverse Reaction, Mild, Nausea, 07/23/18) codeine (Verified Adverse Reaction, Mild, Nausea, 07/23/18) tramadol (Verified Adverse Reaction, Mild, N/V, 07/23/18) Home Medications Acetaminophen 500 Mg Tablet, 1,000 MG PO Q6H PRN for PAIN-MODERATE, (Reported) Albuterol Sulfate 1 Puff Puff, 2 PUFF IH Q4H PRN for SHORTNESS OF BREATH, (Reported) Albuterol Sulfate 2.5 Mg/3 Ml Vial.neb, 2.5 MG NEB TID PRN for SHORTNESS OF BREATH, (Reported) Amlodipine Besylate 5 Mg Tablet, 5 MG PO DAILY, (Reported) Atorvastatin Calcium 40 Mg Tablet, 40 MG PO DAILY, (Reported) Brexpiprazole 2 Mg Tablet, 2 MG PO DAILY, (Reported) Budesonide/Formoterol Fumarate 10.2 Gm Hfa.aer.ad, 2 PUFF INH BID, (Reported) Cefuroxime Axetil 500 Mg Tablet, 500 MG PO BID Prescribed by: MARITZA REID on 08/14/19 1353 Cetirizine HCl 10 Mg Tab.chew, 10 MG PO DAILY, (Reported) Cyclobenzaprine HCl 10 Mg Tablet, 10 MG PO TID PRN for MUSCLE SPASMS, (Reported) Fesoterodine Fumarate 8 Mg Tab.er.24h, 8 MG PO HS, (Reported) Gabapentin 600 Mg Tablet, 1,200 MG PO BID, (Reported) TAKES 2 (600MG) TABLETS Levothyroxine Sodium 50 Mcg Tablet, 50 MCG PO DAILY, (Reported) Metformin HCl 500 Mg Tablet, 500 MG PO BID, (Reported) Metoprolol Tartrate 25 Mg Tablet, 25 MG PO BID, (Reported) Montelukast Sodium 10 Mg Tablet, 10 MG PO 1700, (Reported) Oxybutynin Chloride 15 Mg Tab.er.24, 15 MG PO DAILY, (Reported) Pantoprazole Sodium 40 Mg Tablet.dr, 40 MG PO DAILY, (Reported) Tiotropium [place] 1 Inh Aerp, 1 CAP IH DAILY, (Reported) Vilazodone Hydrochloride 40 Mg Tablet, 40 MG PO DAILY, (Reported) Patient Home Medication List Home Medication List Reviewed: Yes Review of Systems Review of Systems Constitutional: fever Respiratory: cough, short of breath, wheezing Cardiovascular: No chest pain, No palpitations Gastrointestinal: no symptoms reported Genitourinary: no symptoms reported Skin: no symptoms reported Past Vqjdqly-Kfugft-Ervkvb Hx Past Med/Social Hx: Reviewed Nursing Past Med/Soc Hx Patient Social History Type Used: Cigarettes Former Smoker, Quit: Jun 27, 2018 2nd Hand Smoke Exposure: Yes Recent Hopitalizations: Yes (06/2019 for sepsis) Immunizations Up To Date Tetanus Booster (TDap): Less than 5yrs Date of Pneumonia Vaccine: Jul 10, 2011 Date of Influenza Vaccine: Aug 20, 2018 Seasonal Allergies Seasonal Allergies: No Past Medical History Surgeries: Yes (CARPALTUNAL) Amputation, Orthopedic, Vascular Surgery Respiratory: Yes ( O2 4L/NC @ all times. 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 Sexually Transmitted Disease: No HIV/AIDS: No Genitourinary: Yes (BLADDER SUSPENSION) Bladder Infection Gastrointestinal: Yes Gastroesophageal Reflux Musculoskeletal: Yes (RT BTK AMPUTATION) Amputee Endocrine: Yes Diabetes, Non-Insulin dep HEENT: No Loss of Vision: Bilateral Hearing Impairment: Denies Cancer: No Psychosocial: Yes Anxiety, Depression Integumentary: No Blood Disorders: Yes (ANEMIA) Adverse Reaction/Blood Tranf: No (N/A) Family Medical History Arthritis Diabetes mellitus Hypertension Patient reports she does not know Physical Exam Vital Signs - First Documented 11/01/19 11/01/19 13:48 15:03 Temp 37.0 Pulse 101 Resp 30 B/P (MAP) 184/100 (128) Pulse Ox 91 O2 Delivery Room Air O2 Flow Rate 6.00 Capillary Refill : Height: 5'7.00" Weight: 182lbs. 5.2oz. 82.901973qe; 28.00 BMI Method:Stated General Appearance: WD/WN, no apparent distress Neck: supple Respiratory: chest non-tender, rhonchi, wheezing Cardiovascular: regular rate, rhythm, no edema Gastrointestinal: non tender, soft Extremities: non-tender, normal inspection Neurologic/Psychiatric: no motor/sensory deficits, normal mood/affect, oriented x 3 Skin: other (bilateral third-degree marinelli on anterior thighs that are well hea ling approximately one week old,no signs of infection) Focused Exam Lactate Level 11/01/19 13:55: Lactic Acid Level 2.16*H 11/01/19 16:40: Lactic Acid Level 0.75 Lactic Acid Level Laboratory Tests Test 11/01/19 13:55 11/01/19 16:40 Lactic Acid Level 2.16 MMOL/L (0.50-2.00) *H 0.75 MMOL/L (0.50-2.00) Progress/Results/Core Measures Suspected Sepsis SIRS Temperature: Pulse: Respiratory Rate: Laboratory Tests 11/01/19 13:55: White Blood Count 15.1H Blood Pressure / Mean: 11/01/19 13:55: Lactic Acid Level 2.16*H 11/01/19 16:40: Lactic Acid Level 0.75 Laboratory Tests 11/01/19 13:55: Creatinine 0.80, Platelet Count 328 Results/Orders Lab Results Laboratory Tests Test 11/01/19 13:55 11/01/19 16:18 11/01/19 16:40 Range/Units White Blood Count 15.1 H 4.3-11.0 10^3/uL Red Blood Count 4.95 4.35-5.85 10^6/uL Hemoglobin 11.2 L 11.5-16.0 G/DL Hematocrit 39 35-52 % Mean Corpuscular Volume 80 80-99 FL Mean Corpuscular Hemoglobin 23 L 25-34 PG Mean Corpuscular Hemoglobin Concent 28 L 32-36 G/DL Red Cell Distribution Width 17.8 H 10.0-14.5 % Platelet Count 328 130-400 10^3/uL Mean Platelet Volume 11.0 H 7.4-10.4 FL Neutrophils (%) (Auto) 84 H 42-75 % Lymphocytes (%) (Auto) 9 L 12-44 % Monocytes (%) (Auto) 7 0-12 % Eosinophils (%) (Auto) 0 0-10 % Basophils (%) (Auto) 0 0-10 % Neutrophils # (Auto) 12.7 H 1.8-7.8 X 10^3 Lymphocytes # (Auto) 1.3 1.0-4.0 X 10^3 Monocytes # (Auto) 1.1 H 0.0-1.0 X 10^3 Eosinophils # (Auto) 0.1 0.0-0.3 10^3/uL Basophils # (Auto) 0.0 0.0-0.1 10^3/uL Neutrophils % (Manual) 87 % Lymphocytes % (Manual) 7 % Monocytes % (Manual) 5 % Eosinophils % (Manual) 0 % Basophils % (Manual) 0 % Band Neutrophils 1 % Anisocytosis SLIGHT Sodium Level 141 135-145 MMOL/L Potassium Level 3.9 3.6-5.0 MMOL/L Chloride Level 101 98-107 MMOL/L Carbon Dioxide Level 26 21-32 MMOL/L Anion Gap 14 5-14 MMOL/L Blood Urea Nitrogen 11 7-18 MG/DL Creatinine 0.80 0.60-1.30 MG/DL Estimat Glomerular Filtration Rate > 60 BUN/Creatinine Ratio 14 Glucose Level 92 70-105 MG/DL Lactic Acid Level 2.16 *H 0.75 0.50-2.00 MMOL/L Calcium Level 9.3 8.5-10.1 MG/DL Blood Gas Puncture Site LR Blood Gas Patient Temperature 37.6 Arterial Blood pH 7.38 7.37-7.43 Arterial Blood Partial Pressure CO2 45 35-45 MMHG Arterial Blood Partial Pressure O2 66 L 79-93 MMHG Arterial Blood HCO3 26 23-27 MMOL/L Arterial Blood Total CO2 27.2 21.0-31.0 MMOL/L Arterial Blood Oxygen Saturation 91 L 94-100 % Arterial Blood Base Excess 1.3 -2.5-2.5 MMOL/L Rigo Test YES-POS Blood Gas Ventilator Setting NO Blood Gas Inspired Oxygen 4L Micro Results Microbiology 11/01/19 Influenza Types A,B Antigen (HARRY) - Final, Complete My Orders Orders - EBONY LALA DO Pulse Oximetry Order (11/01/19 13:51) Rt Request For Service (11/01/19 13:51) Prednisone Tablet (Deltasone Tablet) (11/01/19 14:00) Albuterol/Ipra Inhalation Soln (Duoneb I (11/01/19 14:00) Cbc And Manual Diff (11/01/19 13:51) Basic Metabolic Panel (11/01/19 13:51) Influenza A And B Antigens (11/01/19 13:51) Chest Pa/Lat (2 View) (11/01/19 13:51) Doxycycline Hyclate Tablet (Vibramycin T (11/01/19 14:00) Hydrocodone/Apap 5/325 Tablet (Lortab 5 (11/01/19 15:30) Arterial Blood Gas (11/01/19 16:18) Blood Culture (11/01/19 15:42) Sputum Culture (11/01/19 15:42) Lactic Acid Analyzer (11/01/19 15:42) Cefepime Injection (Maxipime Injection) (11/01/19 15:45) Vancomycin Injection (Vancomycin Injecti (11/01/19 15:45) Arterial Blood Draw (11/01/19 ) Medications Given in ED Current Medications Medications Dose Ordered Sig/Betty Route Start Time Stop Time Status Last Admin Dose Admin Acetaminophen/ Hydrocodone Bitart 1 tab ONCE ONCE PO 11/01/19 15:30 11/01/19 15:31 DC 11/01/19 15:47 1 TAB Albuterol/ Ipratropium 3 ml ONCE ONCE IH 11/01/19 14:00 11/01/19 14:01 DC 11/01/19 15:03 3 ML Doxycycline Hyclate 100 mg ONCE ONCE PO 11/01/19 14:00 11/01/19 14:01 DC 11/01/19 14:57 100 MG Prednisone 40 mg ONCE ONCE PO 11/01/19 14:00 11/01/19 14:01 DC 11/01/19 14:57 40 MG Vancomycin HCl 1000 mg/Sodium Chloride 250 ml @ 250 mls/hr ONCE ONCE IV 11/01/19 15:45 11/01/19 16:44 DC 11/01/19 16:05 250 MLS/HR Vital Signs/I&O 11/01/19 11/01/19 13:48 15:03 Temp 37.0 Pulse 101 Resp 30 B/P (MAP) 184/100 (128) Pulse Ox 91 95 O2 Delivery Room Air Nasal Cannula O2 Flow Rate 6.00 Capillary Refill : Departure Communication (Admissions) Time/Spoke to Admitting Phy: 16:30 Time/Spoke to Consulting Phy: 17:00 Impression Primary Impression: Lobar pneumonia, unspecified organism Disposition: ADMITTED INPATIENT Condition: Stable Admissions Decision to Admit Reason: Admit from ER (General) Decision to Admit/Date: Nov 01, 2019 Time/Decision to Admit Time: 16:30 Departure-Patient Inst. Referrals: [facility] (PCP) Primary Care Physician TONEY DUMONT (Family) Primary Care Physician EBONY LALA DO Nov 01, 2019 13:50 POS
[2019-11-01] MEDS ORDERED: predniSONE 20 MG TAB PO ONE (14:00)
[2019-11-01] MEDS ORDERED: RT-ALBUTEROL/IPRATROPIUM 3 ML (DUONEB) VIAL IH ONE (14:00)
[2019-11-01] MEDS ORDERED: DOXYCYCLINE 100 MG (VIBRAMYCIN) TABLET PO ONE (14:00)
[2019-11-01 14:08] LABS: BASOPHILS % (AUTO) 0 % (0-10); EOSINOPHILS # (AUTO) 0.1 10^3/uL (0.0-0.3); EOSINOPHILS % (AUTO) 0 % (0-10); HEMATOCRIT 39 % (35-52); HEMOGLOBIN 11.2 G/DL (11.5-16.0); LYMPHOCYTES # (AUTO) 1.3 X 10^3 (1.0-4.0); LYMPHOCYTES % (AUTO) 9 % (12-44); MEAN CORPUSCULAR HEMOGLOBIN 23 PG (25-34); MEAN CORPUSCULAR HGB CONC 28 G/DL (32-36); MEAN CORPUSCULAR VOLUME 80 FL (80-99); MONOCYTES # (AUTO) 1.1 X 10^3 (0.0-1.0); MONOCYTES % (AUTO) 7 % (0-12); NEUTROPHILS # (AUTO) 12.7 X 10^3 (1.8-7.8); NEUTROPHILS % (AUTO) 84 % (42-75); PLATELET COUNT 328 10^3/uL (130-400); RED CELL DISTRIBUTION WIDTH 17.8 % (10.0-14.5); WHITE BLOOD COUNT 15.1 10^3/uL (4.3-11.0)
[2019-11-01 14:31] LABS: ANISOCYTOSIS SLIGHT; BAND NEUTROPHILS 1 %; BASOPHILS % (MANUAL) 0 %; EOSINOPHILS % (MANUAL) 0 %; LYMPHOCYTES % (MANUAL) 7 %; MONOCYTES % (MANUAL) 5 %; NEUTROPHILS % (MANUAL) 87 %
[2019-11-01 14:41] LABS: BUN/CREATININE RATIO 14; CALCIUM 9.3 MG/DL (8.5-10.1); CARBON DIOXIDE 26 MMOL/L (21-32); CHLORIDE 101 MMOL/L (98-107); GFR ESTIMATED > 60; GLUCOSE 92 MG/DL (70-105); POTASSIUM 3.9 MMOL/L (3.6-5.0); SODIUM 141 MMOL/L (135-145)
--- NOTE | 2019-11-01 15:06 | Diagnostic Imaging Report ---
INDICATION: Shortness of breath. Wheezing. Febrile. COMPARISON: 10/23/2019. FINDINGS: PA and lateral chest. Left lung shows mild hyperaeration with mild chronic interstitial infiltrates in lung bases. There are acute alveolar infiltrates in the right lung base. The right upper lung is clear. There is some volume loss in the right lung base as well. The heart is not enlarged. There is no pulmonary edema. No pleural effusion. IMPRESSION: Findings are consistent with consolidated pneumonia in right lower lobe. There is some associated atelectasis as well. Dictated by: Dictated on workstation # [id number]
[2019-11-01] MEDS ORDERED: HYDROcodone/APAP 5 MG/325 MG (LORTAB) TAB PO ONE (15:30)
[2019-11-01] MEDS ORDERED: CEFEPIME INJECTION 1,000 MG in WATER (STERILE) FOR INJECTION 10 ML IV ONE (15:45)
[2019-11-01] MEDS ORDERED: VANCOMYCIN INJECTION 1,000 MG in NS (IVPB) 250 ML IV ONE (15:45)
[2019-11-01 16:29] LABS: ABG BASE EXCESS 1.3 MMOL/L (-2.5-2.5); ABG OXYGEN SATURATION 91 % (94-100); ABG PCO2 45 MMHG (35-45); ABG PH 7.38 (7.37-7.43); ABG PO2 66 MMHG (79-93); ABG TCO2 27.2 MMOL/L (21.0-31.0)
[2019-11-01 16:33] LABS: ALLENS TEST YES-POS; INSPIRED O2 4L; PATIENT TEMP 37.6; VENTILATOR NO
--- NOTE | 2019-11-01 18:13 | NUR ---
DR BAPTISTE HERE TO SEE PT
[2019-11-01] MEDS ORDERED: RT-ALBUTEROL/IPRATROPIUM 3 ML (DUONEB) VIAL IH PRN (19:00)
--- NOTE | 2019-11-01 19:00 | NUR ---
MAULIK ELIZALDE admitted to room CU2-1, with an admitting diagnosis of PNEUMONIA , on 11/01/19 from ED via STRETCHER, accompanied by HOSPITAL STAFF. MAULIK ELIZALDE introduced to surroundings, call light, bed controls, phone, TV, temperature control, lights, meal times, smoking policy, visitor policy, side rail policy, bathrooms and showers. Patient Rights given to patient in the handbook.MAULIK ELIZALDE verbalizes understanding that [facility] is not responsible for the loss or damage to any personal effects or valuables that are kept in the patients posession during their hospitalization. MAULIK ELIZALDE verbalizes understanding of Interdisciplinary Patient Education. Patient and/or family were informed about the Rapid Response Team and its purpose.
[2019-11-01] MEDS: NS IV 1000 ML 1,000 ML IV SCH (19:30)
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
--- NOTE | 2019-11-01 21:15 | NUR ---
INFORMED DR. BAPTISTE THAT PNEUMONIA PROTOCOL WAS CHECKED ON THE ED BRIDGE ORDER BUT THAT NO PNEUMONIA PROTOCOL ORDERS WERE INCLUDED AND THAT PATIENT RECEIVED VANCO 1GR, MAXIPIME 1GR, VIBROMYCIN 100MG PO AND PREDNISON 40MG PO IN ER. ALSO INFORMED HER THAT PATIENT WAS REQUESTING LORTAB AND THAT SHE SCORED HIGH FOR DVT AND THAT PATIENT DOES TAKE METFORMIN BUT NO ACCUCHECKS HAD BEEN ORDERED. RECEIVED ORDERS TO START VANCO, MAXIPIME, ACCUCHECKS BID WITH INSULIN SLIDING SCALE A AND LOVENOX 40MG SQ DAILY. SEE EMAR FOR DETAILS.
[2019-11-01] MEDS ORDERED: inSUlin ASPART (NovoLOG) 1 UNIT/0.01 ML (CHARGE PER UNIT) SC SCH (21:30)
[2019-11-01] MEDS ORDERED: VANCOMYCIN 750 MG/NS 250 ML IVPB IV ONE ×2 (22:15)
[2019-11-01] MEDS: ENOXAPARIN 40 MG/0.4 ML (LOVENOX) SYR SC SCH (22:25)
[2019-11-01] MEDS ORDERED: VANCOMYCIN 1000 MG/VIAL ONE (23:20)
[2019-11-01] MEDS ORDERED: NS (IVPB) 250 ML ONE (23:20)
--- NOTE | 2019-11-01 23:25 | NUR ---
REMOVED VANCO 1000MG VIAL AND 250 ML NORMAL SALINE FROM [employer]. REMOVED 10ML NORMAL SALINE FROM 250ML NORMAL SALINE AND DILUTED VANCO VIAL WITH 10ML NS. INJECTED 7.5ML OF DILUTED SOLUTION BACK INTO 250ML NORMAL SALINE TO OBTAIN 750MG VANCO IN 250ML NORMAL SALINE. DISCARDED REMAINDER OF DILUTED SOLUTION.
[2019-11-02] VITALS: BP 113/57
--- NOTE | 2019-11-02 03:53 | Pulmonary Consultation ---
History of Present Illness History of Present Illness Date Seen by Provider: Nov 02, 2019 Time Seen by Provider: 07:49 Date of Admission History of Present Illness 54yo with hx of oxygen dependent COPD 4 liters/min, PVD, Right AKA, recent marinelli to her upper legs on 10/28 presented to ED secondary to worsening fever, SOB, productive cough. PT had reported fever of 103.9 prior to ED arrival. PT was admitted to ICU for close observation. SHe has a hx of acute respiratory failure. I am consulted for pulmonary/CC management. Allergies and Home Medications Allergies Coded Allergies: Penicillins (Verified Allergy, Mild, Hives, 07/23/18) [place]-Glo-Fec Reductase Inhibitor (Verified Allergy, Unknown, TAKES ATORVASTATIN AT HOME, 06/15/19) amlodipine besylate (Verified Allergy, Unknown, TAKES AMLODIPINE AT HOME, 06/15/19) benazepril HCl (Verified Allergy, Unknown, 07/23/18) aspirin (Verified Adverse Reaction, Mild, Nausea, 07/23/18) codeine (Verified Adverse Reaction, Mild, Nausea, 07/23/18) tramadol (Verified Adverse Reaction, Mild, N/V, 07/23/18) Home Medications Acetaminophen 500 Mg Tablet, 1,000 MG PO Q6H PRN for PAIN-MODERATE, (Reported) Albuterol Sulfate 1 Puff Puff, 2 PUFF IH Q4H PRN for SHORTNESS OF BREATH, (Repor nuris) Albuterol Sulfate 2.5 Mg/3 Ml Vial.neb, 2.5 MG NEB TID PRN for SHORTNESS OF BREATH, (Reported) Amlodipine Besylate 5 Mg Tablet, 5 MG PO DAILY, (Reported) Atorvastatin Calcium 40 Mg Tablet, 40 MG PO DAILY, (Reported) Brexpiprazole 2 Mg Tablet, 2 MG PO DAILY, (Reported) Budesonide/Formoterol Fumarate 10.2 Gm Hfa.aer.ad, 2 PUFF INH BID, (Reported) Cefuroxime Axetil 500 Mg Tablet, 500 MG PO BID Prescribed by: MARITZA REID on 08/14/19 1193 Cetirizine HCl 10 Mg Tab.chew, 10 MG PO DAILY, (Reported) Cyclobenzaprine HCl 10 Mg Tablet, 10 MG PO TID PRN for MUSCLE SPASMS, (Reported) Fesoterodine Fumarate 8 Mg Tab.er.24h, 8 MG PO HS, (Reported) Gabapentin 600 Mg Tablet, 1,200 MG PO BID, (Reported) TAKES 2 (600MG) TABLETS Levothyroxine Sodium 50 Mcg Tablet, 50 MCG PO DAILY, (Reported) Metformin HCl 500 Mg Tablet, 500 MG PO BID, (Reported) Metoprolol Tartrate 25 Mg Tablet, 25 MG PO BID, (Reported) Montelukast Sodium 10 Mg Tablet, 10 MG PO 1700, (Reported) Oxybutynin Chloride 15 Mg Tab.er.24, 15 MG PO DAILY, (Reported) Pantoprazole Sodium 40 Mg Tablet.dr, 40 MG PO DAILY, (Reported) Tiotropium [place] 1 Inh Aerp, 1 CAP IH DAILY, (Reported) Vilazodone Hydrochloride 40 Mg Tablet, 40 MG PO DAILY, (Reported) Past Hkeqoms-Ndjyli-Lpybgn Hx Past Med/Social Hx: Reviewed Nursing Past Med/Soc Hx, Reviewed and Corrections made Patient Social History Alcohol Use: Denies Use Recreational Drug Use: No Smoking Status: Current Everyday Smoker Type Used: Cigarettes Former Smoker, Quit: Jun 27, 2018 2nd Hand Smoke Exposure: Yes Recent Foreign Travel: No Contact w/Someone Who Travel: No Recent Infectious Disease Expo: No Recent Hopitalizations: Yes (06/2019 for sepsis) Physical Abuse: No Sexual Abuse: No Immunizations Up To Date Tetanus Booster (TDap): Less than 5yrs Date of Pneumonia Vaccine: Jun 01, 2016 Date of Influenza Vaccine: Aug 30, 2019 Seasonal Allergies Seasonal Allergies: No Past Medical History Surgeries: Yes (CARPALTUNAL) Amputation, Orthopedic, Vascular Surgery Respiratory: Yes ( O2 4L/NC @ all times. 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 [employer] INS[employer]OR History: Hysterectomy, Menopausal Sexually Transmitted Disease: No HIV/AIDS: No Genitourinary: Yes (BLADDER SUSPENSION) Bladder Infection Gastrointestinal: Yes Gastroesophageal Reflux Musculoskeletal: Yes (RT BTK AMPUTATION) Amputee Endocrine: Yes Diabetes, Non-Insulin dep HEENT: No Loss of Vision: Bilateral Hearing Impairment: Denies Cancer: No Psychosocial: Yes Anxiety, Depression Integumentary: No Blood Disorders: Yes (ANEMIA) Adverse Reaction/Blood Tranf: No (N/A) Family Medical History Arthritis Diabetes mellitus Hypertension Patient reports she does not know Review of Systems Time Seen by Provider: 07:59 Constitutional: Fever, Chills, Sweats, Weakness, Malaise, Other Eyes: No: Pain, Vision change, Conjunctivae inflammation, Eyelid inflammation, Other, Redness ENT: Nose congestion; No: Ear pain, Ear discharge, Nose pain, Nose discharge, Mouth pain, Mouth swelling, Throat pain, Throat swelling, Other Respiratory: Cough, Shortness of breath, Wheezing, Sputum; No: Hemoptysis Cardiovascular: No: Chest Pain, Palpitations, Orthopnea, Paroxysmal Noc. Dyspnea, Edema, Lt Headedness, Other Gastrointestinal: No: Nausea, Vomiting, Abdominal Pain, Diarrhea, Constipation, Melena, Hematochezia, Other Sepsis Event Evaluation Height, Weight, BMI Height: 5'7.00" Weight: 182lbs. 5.2oz. 82.676923bz; 29.89 BMI Method:Stated Exam Exam Vital Signs Date Time Temp Pulse Resp B/P (MAP) Pulse Ox O2 Delivery O2 Flow Rate FiO2 11/02/19 03:34 97 Nasal Cannula 7.00 11/02/19 01:00 70 11/02/19 00:36 37.0 101 91 4 11/02/19 00:00 68 113/57 (75) 98 Nasal Cannula 6.00 11/02/19 00:00 95 Nasal Cannula 6.00 11/01/19 21:00 Nasal Cannula 6.00 11/01/19 21:00 96 Nasal Cannula 6.00 11/01/19 20:28 36.5 11/01/19 19:00 92 Nasal Cannula 4.00 11/01/19 19:00 93 11/01/19 18:14 90 24 140/78 95 Nasal Cannula 5.00 11/01/19 15:03 95 Nasal Cannula 6.00 11/01/19 13:48 37.0 101 30 184/100 (128) 91 Room Air l I & O 11/02/19 07:00 Intake Total 410 ml Balance 410 ml Height & Weight Height: 5'7.00" Weight: 182lbs. 5.2oz. 82.531434qh; 29.89 BMI Method:Stated General Appearance: WD/WN, Chronically ill, Mild Distress HEENT: PERRL/EOMI, Normal ENT Inspection, Pharynx Normal, Moist Mucous Membranes Neck: Full Range of Motion, Normal Inspection, Non Tender Respiratory: Chest Non Tender, No Accessory Muscle Use, No Respiratory Distress, Crackles, Decreased Breath Sounds, Wheezing Cardiovascular: Regular Rate, Rhythm, No Edema, No Gallop, No JVD, No Murmur, Normal Peripheral Pulses Capillary Refill: Less Than 3 Seconds Gastrointestinal: non tender, soft Extremity: Normal Capillary Refill, Normal Inspection, Normal Range of Motion, Non Tender, No Calf Tenderness, No Pedal Edema Neurologic/Psychiatric: Alert, Oriented x3, No Motor/Sensory Deficits, Normal Mood/Affect Skin: Normal Color, Warm/Dry, Rash (marinelli noted legs, second degree) Lymphatic: No Adenopathy Results Lab Laboratory Tests 11/01/19 13:55 Assessment/Plan Assessment/Plan Sepsis with pneumonia with hypoxia -Continue Vanco, and Cefepime -Hoff cultures pending -Influenza negative Lung nodules on CT of chest 10/18 -Will need close f.u in my office Severe oxygen dependent COPD -SVNs -Will hold off on steroids for now Marinelli to upper thighs small 3rd degree marinelli -Wound care consulted -I discussed with Dr. Whitehead he has no concerns regarding pt staying here in regards to marinelli. Right AKA Tobacco use -Education Frequent falls/Debility ROSE OSBORN DO Nov 02, 2019 03:53 POS
[2019-11-02 04:08] LABS: BASOPHILS % (AUTO) 0 % (0-10); EOSINOPHILS % (AUTO) 0 % (0-10); HEMATOCRIT 31 % (35-52); HEMOGLOBIN 8.7 G/DL (11.5-16.0); LYMPHOCYTES # (AUTO) 0.8 X 10^3 (1.0-4.0); LYMPHOCYTES % (AUTO) 7 % (12-44); MEAN CORPUSCULAR HEMOGLOBIN 23 PG (25-34); MEAN CORPUSCULAR HGB CONC 28 G/DL (32-36); MEAN CORPUSCULAR VOLUME 80 FL (80-99); MEAN PLATELET VOLUME 11.2 FL (7.4-10.4); MONOCYTES # (AUTO) 0.8 X 10^3 (0.0-1.0); MONOCYTES % (AUTO) 6 % (0-12); NEUTROPHILS # (AUTO) 11.2 X 10^3 (1.8-7.8); NEUTROPHILS % (AUTO) 87 % (42-75); PLATELET COUNT 252 10^3/uL (130-400); RED CELL DISTRIBUTION WIDTH 17.4 % (10.0-14.5); WHITE BLOOD COUNT 12.9 10^3/uL (4.3-11.0)
[2019-11-02] MEDS: CEFEPIME INJECTION 1,000 MG in WATER (STERILE) FOR INJECTION 10 ML IV SCH ×6 (04:23→23:58)
[2019-11-02 04:43] LABS: ALANINE AMINOTRANSFERASE < 6 U/L (0-55); ALBUMIN 2.6 GM/DL (3.2-4.5); ALKALINE PHOSPHATASE 60 U/L (40-136); BILIRUBIN,TOTAL 0.2 MG/DL (0.1-1.0); BUN/CREATININE RATIO 20; CALCIUM 7.9 MG/DL (8.5-10.1); CARBON DIOXIDE 22 MMOL/L (21-32); CHLORIDE 107 MMOL/L (98-107); CREATININE SERUM 0.66 MG/DL (0.60-1.30); GFR ESTIMATED > 60; GLUCOSE 116 MG/DL (70-105); POTASSIUM 3.9 MMOL/L (3.6-5.0); SODIUM 141 MMOL/L (135-145); TOTAL PROTEIN 6.1 GM/DL (6.4-8.2)
[2019-11-02] MEDS: NS IV 1000 ML 1,000 ML IV SCH ×2 (05:00→07:17)
[2019-11-02] MEDS: RT-BUDESONIDE NEBS 0.5 MG/2ML (PULMICORT) AMP INH SCH ×2 (07:28→19:08)
[2019-11-02] MEDS: RT-ALBUTEROL/IPRATROPIUM 3 ML (DUONEB) VIAL INH SCH ×5 (07:29→22:34)
[2019-11-02] MEDS ORDERED: RT-ALBUTEROL/IPRATROPIUM 3 ML (DUONEB) VIAL IH PRN (07:30)
--- NOTE | 2019-11-02 07:30 | NUR ---
VANCOMYCIN DOSING SCR 0.66; CRCL ~ 107; BOLUS VANC 1750 MG GIVEN OVERNIGHT - VANC 15 MG/KG X 86 KG ~ 1250 MG Q12H CHECK TROUGH LEVEL 11/03 1900 AFTER 3RD DOSE HOLD DOSE AND CONTACT PHARMACY IF LEVEL IS GREATER THAN 20
[2019-11-02 08:00] VITALS: BP 123/66
[2019-11-02] MEDS ORDERED: RT-ALBUTEROL SULF 2.5 MG/3 ML PRE-MIX VIAL INH SCH (08:00)
[2019-11-02] MEDS: inSUlin ASPART (NovoLOG) 1 UNIT/0.01 ML (CHARGE PER UNIT) SC SCH ×2 (08:06→20:58)
--- NOTE | 2019-11-02 08:41 | Diagnostic Imaging Report ---
INDICATION: Shortness of breath COMPARISON: 11/01/2019 FINDINGS: There has been improvements in right basilar infiltrate. The residual opacity likely largely partial atelectasis. No adverse development with COPD stable. Some slight left basilar atelectatic changes. IMPRESSION: Improvements in infiltrate in the lower lobe. Background COPD. Basilar atelectasis no adverse change. Dictated by: Dictated on workstation # [id number]
[2019-11-02] MEDS: VANCOMYCIN INJECTION 1,250 MG in NS (IVPB) 250 ML IV SCH ×2 (08:55→20:16)
[2019-11-02] MEDS ORDERED: BUSP15TA60 PO (09:35)
[2019-11-02] MEDS ORDERED: NITR0.3T7 PO (09:35)
[2019-11-02] MEDS ORDERED: ASEN5TAB7 PO (09:35)
[2019-11-02] MEDS ORDERED: MIRT15TA6 PO (09:35)
[2019-11-02] MEDS ORDERED: ONDA4TAB10 PO (09:35)
--- NOTE | 2019-11-02 09:41 | NUR ---
WENT OVER THE EXT MED HX WITH THE PATIENT. SHE VERIFIED HOW SHE TAKES THEM. SHE TAKES TYLENOL OTC NEEDED.
[2019-11-02] MEDS: HYDROcodone/APAP 10 MG/325 MG (LORTAB) TAB PO PRN ×3 (10:16→20:16)
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
[2019-11-02 10:53] LABS: BILIRUBIN,URINE NEGATIVE (NEGATIVE); CLARITY,URINE CLOUDY; COLOR,URINE YELLOW; GLUCOSE, URINE (UA) NEGATIVE (NEGATIVE); KETONES,URINE NEGATIVE (NEGATIVE); LEUKOCYTE ESTERASE ,URINE 3+ (NEGATIVE); NITRITE,URINE POSITIVE (NEGATIVE); PROTEIN,URINE TRACE (NEGATIVE)
[2019-11-02 11:12] LABS: BACTERIA,URINE LARGE /HPF; WBC,URINE TNTC /HPF
[2019-11-02] MEDS: SILVER SULFADIAZINE 400 GM CREAM TOP SCH ×2 (11:13→21:54)
[2019-11-02 12:00] VITALS: BP 119/70
[2019-11-02 16:00] VITALS: BP 115/71
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
[2019-11-02 19:30] VITALS: BP 120/74
[2019-11-02] MEDS ORDERED: NON-FORMULARY MEDICATION 1 EA EA (Ondansetron HCl 4 MG) PO PRN (20:45)
[2019-11-02] MEDS ORDERED: NON-FORMULARY MEDICATION 1 EA EA (Acetaminophen (Tylenol Extra Strength) 1,000 MG) PO PRN (20:45)
[2019-11-02] MEDS ORDERED: ASENAPINE MALEATE 5 MG PO SCH (21:00)
[2019-11-02] MEDS ORDERED: NON-FORMULARY MEDICATION 1 EA EA (Fesoterodine Fumarate (Toviaz) 8 MG) PO SCH (21:00)
[2019-11-02] MEDS ORDERED: NON-FORMULARY MEDICATION 1 EA EA (Budesonide/Formoterol Fumarate (Symbicort 160-4.5 Mcg In INH SCH (21:00)
[2019-11-02] MEDS ORDERED: NON-FORMULARY MEDICATION 1 EA EA (Mirtazapine 15 MG) PO SCH (21:00)
[2019-11-02] MEDS ORDERED: NON-FORMULARY MEDICATION 1 EA EA (Metformin HCl 500 MG) PO SCH (21:00)
[2019-11-02] MEDS ORDERED: ACETAMINOPHEN 500 MG TAB (TYLENOL) PO PRN (22:00)
[2019-11-02] MEDS ORDERED: ONDANSETRON 4 MG (ZOFRAN) ORAL DISSOLVE TAB PO PRN (22:00)
[2019-11-02] MEDS: busPIRone 15 MG (BUSPAR) TABLET PO SCH (22:20)
[2019-11-02] MEDS: meTOprolol TARTRATE 25 MG (LOPRESSOR) TABLET PO SCH (22:21)
[2019-11-02] MEDS: ENOXAPARIN 40 MG/0.4 ML (LOVENOX) SYR SC SCH (22:21)
[2019-11-02] MEDS: GABAPENTIN 600 MG (NEURONTIN) TAB PO SCH (22:21)
[2019-11-03 00:21] VITALS: BP 107/66
[2019-11-03] MEDS: NS IV 1000 ML 1,000 ML IV SCH (01:34)
[2019-11-03] MEDS: RT-ALBUTEROL/IPRATROPIUM 3 ML (DUONEB) VIAL INH SCH ×4 (03:34→19:04)
[2019-11-03 04:00] VITALS: BP 148/62
[2019-11-03] MEDS: CEFEPIME INJECTION 1,000 MG in WATER (STERILE) FOR INJECTION 10 ML IV SCH (06:28)
[2019-11-03] MEDS: HYDROcodone/APAP 10 MG/325 MG (LORTAB) TAB PO PRN ×4 (06:28→22:59)
[2019-11-03] MEDS: metFORMIN 500 MG (GLUCOPHAGE) TAB PO SCH ×2 (06:28→08:09)
[2019-11-03 06:37] LABS: BASOPHILS % (AUTO) 0 % (0-10); EOSINOPHILS # (AUTO) 0.1 10^3/uL (0.0-0.3); EOSINOPHILS % (AUTO) 1 % (0-10); HEMATOCRIT 31 % (35-52); HEMOGLOBIN 8.6 G/DL (11.5-16.0); LYMPHOCYTES # (AUTO) 0.9 X 10^3 (1.0-4.0); LYMPHOCYTES % (AUTO) 11 % (12-44); MEAN CORPUSCULAR HEMOGLOBIN 23 PG (25-34); MEAN CORPUSCULAR HGB CONC 28 G/DL (32-36); MEAN CORPUSCULAR VOLUME 82 FL (80-99); MEAN PLATELET VOLUME 10.6 FL (7.4-10.4); MONOCYTES % (AUTO) 12 % (0-12); NEUTROPHILS # (AUTO) 6.2 X 10^3 (1.8-7.8); NEUTROPHILS % (AUTO) 76 % (42-75); PLATELET COUNT 235 10^3/uL (130-400); RED CELL DISTRIBUTION WIDTH 17.7 % (10.0-14.5); WHITE BLOOD COUNT 8.2 10^3/uL (4.3-11.0)
--- NOTE | 2019-11-03 06:54 | Pulmonary Progress Note ---
Subjective Time Seen by a Provider: 06:53 Subjective/Events-last exam Still complains of SOB noelle with exertion. Sepsis Event Evaluation Height, Weight, BMI Height: 5'7.00" Weight: 182lbs. 5.2oz. 82.646219rh; 29.89 BMI Method:Stated Focused Exam Lactate Level 11/01/19 13:55: Lactic Acid Level 2.16*H 11/01/19 16:40: Lactic Acid Level 0.75 Exam Exam Vital Signs Date Time Temp Pulse Resp B/P (MAP) Pulse Ox O2 Delivery O2 Flow Rate FiO2 11/03/19 04:00 37.1 73 20 148/62 (90) 92 Nasal Cannula 5.00 11/03/19 04:00 Nasal Cannula 5.00 11/03/19 00:21 36.5 62 22 107/66 (80) 95 Nasal Cannula 5.00 11/03/19 00:00 Nasal Cannula 5.00 11/02/19 22:34 89 Nasal Cannula 5.00 11/02/19 21:00 Nasal Cannula 5.00 11/02/19 20:00 Nasal Cannula 5.00 11/02/19 19:30 36.3 78 20 120/74 (89) 96 Nasal Cannula 5.00 11/02/19 19:08 Nasal Cannula 5.00 11/02/19 19:08 94 Nasal Cannula 5.00 11/02/19 16:00 36.3 76 18 115/71 (86) 97 Nasal Cannula 5.00 11/02/19 16:00 97 Nasal Cannula 5.00 11/02/19 12:08 Nasal Cannula 5.00 11/02/19 12:00 36.8 86 24 119/70 (86) 94 Nasal Cannula 5.00 11/02/19 11:52 Nasal Cannula 5.00 11/02/19 10:37 98 Nasal Cannula 5.00 11/02/19 08:00 Nasal Cannula 6.00 11/02/19 08:00 Nasal Cannula 6.00 11/02/19 08:00 84 123/66 (85) 92 Nasal Cannula 6.00 11/02/19 07:35 Nasal Cannula 5.00 11/02/19 07:29 95 Nasal Cannula 6.00 I & O 11/03/19 07:00 Intake Total 2760 ml Output Total 1450 ml Balance 1310 ml Height & Weight Height: 5'7.00" Weight: 182lbs. 5.2oz. 82.240314xt; 29.89 BMI Method:Stated General Appearance: No Apparent Distress, WD/WN, Chronically ill HEENT: PERRL/EOMI, Normal ENT Inspection, Pharynx Normal, Moist Mucous Membranes Neck: Full Range of Motion, Normal Inspection, Non Tender Respiratory: No Accessory Muscle Use, No Respiratory Distress, Crackles, Decreased Breath Sounds, Wheezing Cardiovascular: Regular Rate, Rhythm Capillary Refill: Less Than 3 Seconds Gastrointestinal: non tender, soft Extremity: Normal Capillary Refill, Normal Inspection, Normal Range of Motion, Non Tender, No Calf Tenderness, No Pedal Edema Neurologic/Psychiatric: Alert, Oriented x3, No Motor/Sensory Deficits, Normal Mood/Affect Skin: Normal Color, Warm/Dry, Rash (marinelli noted legs, second degree) Lymphatic: No Adenopathy Results Lab Laboratory Tests 11/01/19 13:55 11/02/19 03:10 11/03/19 06:20 Assessment/Plan Assessment/Plan Sepsis with pneumonia with hypoxia -Continue Vanco, and Cefepime -Hoff cultures pending -Influenza negative -SL IVF and give 60mg of Lasix x 1 Atlectasis -Increase activity -IS and SVNS Lung nodules on CT of chest 10/18 -Will need close f.u in my office and repeat CT scan 01/19 -Order placed for f/u appt in my office. 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 Whitehead he has no concerns regarding pt staying here in regards to marinelli. Right AKA Tobacco use -Education Frequent falls/Debility ROSE OSBORN DO Nov 03, 2019 06:54 POS
[2019-11-03 07:17] LABS: ALANINE AMINOTRANSFERASE 8 U/L (0-55); ALBUMIN 2.4 GM/DL (3.2-4.5); ALKALINE PHOSPHATASE 57 U/L (40-136); BILIRUBIN,TOTAL 0.1 MG/DL (0.1-1.0); BUN/CREATININE RATIO 16; CALCIUM 7.8 MG/DL (8.5-10.1); CARBON DIOXIDE 22 MMOL/L (21-32); CHLORIDE 112 MMOL/L (98-107); CREATININE SERUM 0.63 MG/DL (0.60-1.30); GFR ESTIMATED > 60; GLUCOSE 75 MG/DL (70-105); POTASSIUM 3.8 MMOL/L (3.6-5.0); SODIUM 144 MMOL/L (135-145); TOTAL PROTEIN 5.8 GM/DL (6.4-8.2)
[2019-11-03] MEDS ORDERED: NITROGLYCERIN 0.4 MG SL TABS BTL 25'S SL PRN (07:45)
[2019-11-03 08:00] VITALS: BP 120/78
[2019-11-03] MEDS ORDERED: UMECLIDINIUM BROMIDE (INCRUSE ELLIPTA) 7'S IH SCH (08:00)
[2019-11-03] MEDS: GABAPENTIN 600 MG (NEURONTIN) TAB PO SCH ×2 (08:08→20:51)
[2019-11-03] MEDS: TOLTERODINE LA 4 MG (DETROL) CAP PO SCH (08:08)
[2019-11-03] MEDS: busPIRone 15 MG (BUSPAR) TABLET PO SCH ×3 (08:09→20:51)
[2019-11-03] MEDS: meTOprolol TARTRATE 25 MG (LOPRESSOR) TABLET PO SCH ×2 (08:09→20:51)
[2019-11-03] MEDS: PANTOPRAZOLE 40 MG (PROTONIX) TAB PO SCH (08:09)
[2019-11-03] MEDS: LEVOTHYROXINE 50 MCG (LEVOTHROID) TAB PO SCH (08:10)
[2019-11-03] MEDS: amLODIPine 5 MG (NORVASC) TAB PO SCH (08:10)
[2019-11-03] MEDS: OXYBUTYNIN (DITROPAN) 5 MG TAB PO SCH (08:10)
[2019-11-03] MEDS: VANCOMYCIN INJECTION 1,250 MG in NS (IVPB) 250 ML IV SCH (08:10)
[2019-11-03] MEDS: RT-BUDESONIDE NEBS 0.5 MG/2ML (PULMICORT) AMP INH SCH (08:43)
[2019-11-03] MEDS: RT-ADVAIR HFA 115/21 MCG PER PUFF IH SCH ×2 (08:53→19:05)
[2019-11-03] MEDS: inSUlin ASPART (NovoLOG) 1 UNIT/0.01 ML (CHARGE PER UNIT) SC SCH ×2 (08:55→20:33)
[2019-11-03] MEDS ORDERED: NON-FORMULARY MEDICATION 1 EA EA (Oxybutynin Chloride (Oxybutynin Chloride ER) 15 MG) PO SCH (09:00)
[2019-11-03] MEDS ORDERED: NON-FORMULARY MEDICATION 1 EA EA (Amlodipine Besylate 5 MG) PO SCH (09:00)
[2019-11-03] MEDS ORDERED: VILAZODONE 40 MG (VIIBRYD) TABLET (NON-FORMULARY) PO SCH (09:00)
[2019-11-03] MEDS ORDERED: TIOTROPIUM BROMIDE (SPIRIVA) 5'S INHALER IH SCH (09:00)
[2019-11-03] MEDS: SILVER SULFADIAZINE 400 GM CREAM TOP SCH ×2 (09:20→20:51)
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
[2019-11-03] MEDS ORDERED: AZITHROMYCIN 250 MG TAB (ZITHROMAX) PO NR (09:37)
[2019-11-03] MEDS ORDERED: FUROSEMIDE 40 MG/4 ML INJ (LASIX) IVP NR (09:38)
[2019-11-03] MEDS ORDERED: KCL 20 MEQ TAB (K-DUR) PO NR (09:39)
--- NOTE | 2019-11-03 09:41 | NUR ---
Pt's sister (Renata) was contacted per Dr. White request. Renata will call back with name of allergy medicine the pt takes at home shauna. Renata will aslo bring home (non-formulary) meds when she can.
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
[2019-11-03 12:00] VITALS: BP 112/74
[2019-11-03] MEDS: diphenhydrAMINE 25 MG TAB (BENADRYL) PO PRN (12:11)
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
[2019-11-03 16:00] VITALS: BP 107/69
[2019-11-03] MEDS: MONTELUKAST 10 MG (SINGULAIR) TAB PO SCH (17:05)
[2019-11-03] MEDS ORDERED: TROUGH ORDER-PHARMACY XX NR (19:00)
[2019-11-03 19:22] VITALS: BP 111/70
[2019-11-03] MEDS: MIRTAZAPINE 15 MG (REMERON) TAB PO SCH (20:51)
[2019-11-03] MEDS: ENOXAPARIN 40 MG/0.4 ML (LOVENOX) SYR SC SCH (20:52)
[2019-11-04] VITALS: BP 110/70
[2019-11-04 04:00] VITALS: BP 135/82
[2019-11-04] MEDS: metFORMIN 500 MG (GLUCOPHAGE) TAB PO SCH ×2 (05:37→17:16)
[2019-11-04] MEDS: HYDROcodone/APAP 10 MG/325 MG (LORTAB) TAB PO PRN ×3 (05:37→20:00)
[2019-11-04 05:40] LABS: BASOPHILS % (AUTO) 0 % (0-10); EOSINOPHILS # (AUTO) 0.2 10^3/uL (0.0-0.3); EOSINOPHILS % (AUTO) 3 % (0-10); HEMATOCRIT 32 % (35-52); HEMOGLOBIN 8.8 G/DL (11.5-16.0); LYMPHOCYTES # (AUTO) 1.4 X 10^3 (1.0-4.0); LYMPHOCYTES % (AUTO) 24 % (12-44); MEAN CORPUSCULAR HEMOGLOBIN 23 PG (25-34); MEAN CORPUSCULAR HGB CONC 28 G/DL (32-36); MEAN CORPUSCULAR VOLUME 82 FL (80-99); MEAN PLATELET VOLUME 10.3 FL (7.4-10.4); MONOCYTES # (AUTO) 0.7 X 10^3 (0.0-1.0); MONOCYTES % (AUTO) 12 % (0-12); NEUTROPHILS # (AUTO) 3.5 X 10^3 (1.8-7.8); NEUTROPHILS % (AUTO) 61 % (42-75); PLATELET COUNT 303 10^3/uL (130-400); RED CELL DISTRIBUTION WIDTH 17.7 % (10.0-14.5); WHITE BLOOD COUNT 5.8 10^3/uL (4.3-11.0)
[2019-11-04 06:04] LABS: ALANINE AMINOTRANSFERASE < 6 U/L (0-55); ALBUMIN 2.6 GM/DL (3.2-4.5); ALKALINE PHOSPHATASE 67 U/L (40-136); BILIRUBIN,TOTAL 0.2 MG/DL (0.1-1.0); BUN/CREATININE RATIO 13; CALCIUM 8.4 MG/DL (8.5-10.1); CARBON DIOXIDE 26 MMOL/L (21-32); CHLORIDE 107 MMOL/L (98-107); CREATININE SERUM 0.79 MG/DL (0.60-1.30); GFR ESTIMATED > 60; GLUCOSE 76 MG/DL (70-105); POTASSIUM 4.3 MMOL/L (3.6-5.0); SODIUM 142 MMOL/L (135-145); TOTAL PROTEIN 6.2 GM/DL (6.4-8.2)
--- NOTE | 2019-11-04 06:27 | Pulmonary Progress Note ---
Subjective Time Seen by a Provider: 07:17 Subjective/Events-last exam No complications noted. Sepsis Event Evaluation Height, Weight, BMI Height: 5'7.00" Weight: 182lbs. 5.2oz. 82.176676hd; 29.89 BMI Method:Stated Focused Exam Lactate Level 11/01/19 13:55: Lactic Acid Level 2.16*H 11/01/19 16:40: Lactic Acid Level 0.75 Exam Exam Vital Signs Date Time Temp Pulse Resp B/P (MAP) Pulse Ox O2 Delivery O2 Flow Rate FiO2 11/04/19 04:00 Nasal Cannula 5.00 11/04/19 00:00 36.2 78 18 110/70 (83) 96 Nasal Cannula 5.00 11/04/19 00:00 Nasal Cannula 5.00 11/03/19 21:00 Nasal Cannula 5.00 11/03/19 20:00 Nasal Cannula 5.00 11/03/19 19:22 37.0 76 18 111/70 (84) 91 Nasal Cannula 5.00 11/03/19 19:03 90 Nasal Cannula 4.00 11/03/19 16:00 36.6 68 18 107/69 (82) 97 Nasal Cannula 5.00 11/03/19 16:00 Nasal Cannula 5.00 11/03/19 12:55 93 Nasal Cannula 4.00 11/03/19 12:00 36.0 72 18 112/74 (87) 95 Nasal Cannula 5.00 11/03/19 11:52 93 Nasal Cannula 4.00 11/03/19 09:04 Nasal Cannula 5.00 11/03/19 08:53 92 Nasal Cannula 4.00 11/03/19 08:44 92 Nasal Cannula 4.00 11/03/19 08:31 Nasal Cannula 5.00 11/03/19 08:00 36.1 75 18 120/78 (92) 93 Nasal Cannula 5.00 I & O 11/04/19 07:00 Intake Total 2650 ml Output Total 3425 ml Balance -775 ml Height & Weight Height: 5'7.00" Weight: 182lbs. 5.2oz. 82.298906tp; 29.89 BMI Method:Stated General Appearance: No Apparent Distress, WD/WN, Chronically ill HEENT: PERRL/EOMI, Normal ENT Inspection, Pharynx Normal, Moist Mucous Membranes Neck: Full Range of Motion, Normal Inspection, Non Tender Respiratory: No Accessory Muscle Use, No Respiratory Distress, Crackles Cardiovascular: Regular Rate, Rhythm Capillary Refill: Less Than 3 Seconds Gastrointestinal: non tender, soft Extremity: Normal Capillary Refill, Normal Inspection, Normal Range of Motion, Non Tender, No Calf Tenderness, No Pedal Edema Neurologic/Psychiatric: Alert, Oriented x3, No Motor/Sensory Deficits, Normal Mood/Affect Skin: Normal Color, Warm/Dry, Rash (marinelli noted legs, second degree) Lymphatic: No Adenopathy Results Lab Laboratory Tests 11/03/19 06:20 11/04/19 05:25 Assessment/Plan Assessment/Plan Sepsis with pneumonia with hypoxia -Hoff cultures- shows Pseudomonus UTI and Moraxella in sputum -Restart Cefepime -Influenza negative Atlectasis -Increase activity -IS and SVNS Lung nodules on CT of chest 10/18 -Will need close f.u in my office and repeat CT scan 01/19 -Order placed for f/u appt in my office. 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 Whitehead he has no concerns regarding pt staying here in regards to marinelli. Right AKA Tobacco use -Education Frequent falls/Debility ROSE OSBORN DO Nov 04, 2019 06:27 POS
[2019-11-04 08:00] VITALS: BP 127/78
[2019-11-04] MEDS: TOLTERODINE LA 4 MG (DETROL) CAP PO SCH (08:26)
[2019-11-04] MEDS: PANTOPRAZOLE 40 MG (PROTONIX) TAB PO SCH (08:26)
[2019-11-04] MEDS: GABAPENTIN 600 MG (NEURONTIN) TAB PO SCH ×2 (08:27→21:17)
[2019-11-04] MEDS: LEVOTHYROXINE 50 MCG (LEVOTHROID) TAB PO SCH (08:27)
[2019-11-04] MEDS: busPIRone 15 MG (BUSPAR) TABLET PO SCH ×3 (08:27→21:17)
[2019-11-04] MEDS: OXYBUTYNIN (DITROPAN) 5 MG TAB PO SCH (08:27)
[2019-11-04] MEDS: amLODIPine 5 MG (NORVASC) TAB PO SCH (08:27)
[2019-11-04] MEDS: meTOprolol TARTRATE 25 MG (LOPRESSOR) TABLET PO SCH ×2 (08:27→21:17)
[2019-11-04] MEDS: SILVER SULFADIAZINE 400 GM CREAM TOP SCH ×2 (08:28→21:17)
--- NOTE | 2019-11-04 08:28 | NUR ---
prior to a.m. medications pulse was 71 b/p was 127/78
--- NOTE | 2019-11-04 08:43 | NUR ---
GRACE CATHETER PRESENT WITH RIGHT INNER THIGH GRACE SECUREMENT PRESENT. CLEAR STRAW COLORED URINE PRESENT IN GRACE BAG.
[2019-11-04] MEDS ORDERED: AZITHROMYCIN 250 MG TAB (ZITHROMAX) PO SCH (09:00)
[2019-11-04] MEDS: inSUlin ASPART (NovoLOG) 1 UNIT/0.01 ML (CHARGE PER UNIT) SC SCH ×2 (09:14→21:55)
[2019-11-04] MEDS: RT-ALBUTEROL/IPRATROPIUM 3 ML (DUONEB) VIAL INH SCH ×2 (09:54→19:40)
[2019-11-04] MEDS: RT-ADVAIR HFA 115/21 MCG PER PUFF IH SCH ×2 (09:54→19:40)
--- NOTE | 2019-11-04 10:42 | Occupational Ther Daily Note ---
OT Current Status-Daily Note Subjective Pt seen in recliner chair upon entry, agreeable to OT tx session; pt states 9/10 pain with meds due ~11. Mental Status/Objective Patient Orientation: Normal For Age Attachments: Shah Catheter, Oxygen ADL-Treatment Therapy Code Descriptions/Definitions Functional [place] Measure: 0=Not Assessed/NA 4=Minimal Assistance 1=Total Assistance 5=Supervision or Setup 2=Maximal Assistance 6=Modified [place] 3=Moderate Assistance 7=Complete IndependenceSCALE: Activities may be completed with or without assistive devices. 4-Flbgwkhrmn-luhbkks completes the activity by him/herself with no assistance from a helper. 5-Set-up or Clean-up Assistance-helper sets up or cleans up; patient completes activity. [place] assists only prior to or following the activity. 4-Supervision or Touching Assistance-helper provides verbal cues and/or touching/steadying and/or contact guard assistance as patient completes activity. Assistance may be provided throughout the activity or intermittently. 3-Partial/Moderate Assistance-helper does LESS THAN HALF the effort. [place] lifts, holds or supports trunk or limbs, but provides less than half the effort. 2-Substantial/Maximal Assistance-helper does MORE THAN HALF the effort. [place] lifts or holds trunk or limbs and provides more than half the effort. 7-Syawrclpz-djwqip does ALL the effort. Patient does none of the effort to complete the activity. Or, the assistance of 2 or more helpers is required for the patient to complete the activity. If activity was not attempted, code reason: 7-Patient Refused. 9-Not Applicable-not attempted and the patient did not perform the activity before the current illness, exacerbation or injury. 10-Not Attempted due to Environmental Limitations-(lack of equipment, weather restraints, etc.). 88-Not Attempted due to Medical Conditions or Safety Concerns. Eating (QC): 6 Oral Hygiene (QC): 7 Shower/Bathe Self (QC): 7 (Pt states she will shower after dinner today, declines at the moment.) on /off footwear: 6 sock donning in recliner chair. Other Treatment Pt completes UE theraband exercises (1 set, 10 reps bilaterally) of shoulder flexion, shoulder scaption, internal/ external rotation, biceps and triceps. Pt requires cues for positioning and tension throughout session. Pt states she feels "crackley," referring to lungs. Pt educated and return demonstrates diaphragmatic breathing, which is encouraged throughout exercise. Pt left with call light in reach, all needs met. Education OT Patient Education: Correct positioning, Exercise program, Home exercise program, Other (diaphragmatic breathing) Teaching Recipient: Patient Teaching Methods: Demonstration, Discussion Response to Teaching: Verbalize Understanding, Return Demonstration, Reinforcement Needed OT Halfway Goals Halfway Goals Time Frame: Nov 10, 2019 Eating (QC): 6 (met) Oral Hygiene (QC): 6 Toileting Hygiene (QC): 4 Shower/Bathe Self (QC): 5 Upper Body Dressing (QC): 6 Lower Body Dressing (QC): 4 On/Off Footwear (QC): 6 (met) Additional Goals: 1-Demonstrate ADL Tasks, 2-Verbalize Understanding, 3- ImproveStrength/John 1=Demonstrate adherence to instructed precautions during ADL tasks. 2=Patient will verbalize/demonstrate understanding of assistive devices/modifications for ADL. 3=Patient will improve strength/tolerance for activity to enable patient to perform ADL's. OT Education/Plan Problem List/Assessment Assessment: Decreased Activ Tolerance, Decreased UE Strength, Impaired Funct Balance, Impaired I ADL's, Impaired Self-Care Skills Discharge Recommendations Plan/Recommendations: Continue POC Treatment Plan/Plan of Care Treatment,Training & Education: Yes Patient would benefit from OT for education, treatment and training to promote independence in ADL's, mobility, safety and/or upper extremity function for ADL's. Plan of Care: ADL Retraining, Caregiver Training, Concurrent Therapy, Functional Mobility, UE Funct Exercise/Act Treatment Duration: Nov 10, 2019 Frequency: 5 times per week Estimated Hrs Per Day: .25 hour per day Agreement: Yes Rehab Potential: Fair Time/GCodes Start Time: 10:25 Stop Time: 10:36 Total Time Billed (hr/min): 11 Billed Treatment Time 1, EX (11) RORY VELAZQUEZ OTR Nov 04, 2019 10:42 POS
[2019-11-04] MEDS: LEVOFLOXACIN 750 MG TAB (LEVAQUIN) PO SCH (11:02)
[2019-11-04 12:00] VITALS: BP 109/64
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
[2019-11-04 16:00] VITALS: BP 129/59
--- NOTE | 2019-11-04 16:10 | NUR ---
Pastoral care visit.
[2019-11-04] MEDS: CYCLOBENZAPRINE 10 MG (FLEXERIL) TAB PO PRN (17:16)
[2019-11-04] MEDS: MONTELUKAST 10 MG (SINGULAIR) TAB PO SCH (17:16)
[2019-11-04 20:21] VITALS: BP 120/58
[2019-11-04] MEDS: MIRTAZAPINE 15 MG (REMERON) TAB PO SCH (21:17)
[2019-11-04] MEDS: ENOXAPARIN 40 MG/0.4 ML (LOVENOX) SYR SC SCH (21:17)
[2019-11-05 00:15] VITALS: BP 133/78
[2019-11-05] MEDS: HYDROcodone/APAP 10 MG/325 MG (LORTAB) TAB PO PRN ×4 (01:52→22:01)
[2019-11-05 04:00] VITALS: BP 150/77
[2019-11-05] MEDS: metFORMIN 500 MG (GLUCOPHAGE) TAB PO SCH ×2 (05:41→16:02)
[2019-11-05] MEDS: CYCLOBENZAPRINE 10 MG (FLEXERIL) TAB PO PRN ×2 (05:42→13:46)
[2019-11-05 08:00] VITALS: BP 138/80
--- NOTE | 2019-11-05 08:09 | NUR ---
prior to a.m. medications pulse was 81 bpm and b/p was 130/80.
[2019-11-05] MEDS: meTOprolol TARTRATE 25 MG (LOPRESSOR) TABLET PO SCH ×2 (08:39→20:44)
[2019-11-05] MEDS: amLODIPine 5 MG (NORVASC) TAB PO SCH (08:39)
[2019-11-05] MEDS: OXYBUTYNIN (DITROPAN) 5 MG TAB PO SCH (08:39)
[2019-11-05] MEDS: TOLTERODINE LA 4 MG (DETROL) CAP PO SCH (08:39)
[2019-11-05] MEDS: busPIRone 15 MG (BUSPAR) TABLET PO SCH ×3 (08:39→20:44)
[2019-11-05] MEDS: GABAPENTIN 600 MG (NEURONTIN) TAB PO SCH ×2 (08:39→20:44)
[2019-11-05] MEDS: LEVOTHYROXINE 50 MCG (LEVOTHROID) TAB PO SCH (08:39)
[2019-11-05] MEDS: PANTOPRAZOLE 40 MG (PROTONIX) TAB PO SCH (08:39)
[2019-11-05] MEDS: SILVER SULFADIAZINE 400 GM CREAM TOP SCH ×2 (08:40→20:44)
[2019-11-05] MEDS: diphenhydrAMINE 25 MG TAB (BENADRYL) PO PRN ×2 (08:59→13:46)
[2019-11-05] MEDS: inSUlin ASPART (NovoLOG) 1 UNIT/0.01 ML (CHARGE PER UNIT) SC SCH ×2 (09:05→21:57)
[2019-11-05] MEDS: LEVOFLOXACIN 750 MG TAB (LEVAQUIN) PO SCH (10:41)
[2019-11-05] MEDS: RT-ADVAIR HFA 115/21 MCG PER PUFF IH SCH ×2 (10:56→19:58)
[2019-11-05] MEDS: RT-ALBUTEROL/IPRATROPIUM 3 ML (DUONEB) VIAL INH SCH ×2 (10:56→19:58)
[2019-11-05 12:07] VITALS: BP 121/77
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
[2019-11-05 16:00] VITALS: BP 113/74
[2019-11-05] MEDS: MONTELUKAST 10 MG (SINGULAIR) TAB PO SCH (16:02)
[2019-11-05 19:43] VITALS: BP 123/78
[2019-11-05] MEDS: ENOXAPARIN 40 MG/0.4 ML (LOVENOX) SYR SC SCH (20:43)
[2019-11-05] MEDS: MIRTAZAPINE 15 MG (REMERON) TAB PO SCH (20:44)
[2019-11-06 00:12] VITALS: BP 124/78
[2019-11-06] MEDS: HYDROcodone/APAP 10 MG/325 MG (LORTAB) TAB PO PRN ×3 (05:37→17:16)
[2019-11-06] MEDS: metFORMIN 500 MG (GLUCOPHAGE) TAB PO SCH ×2 (07:07→17:15)
[2019-11-06 08:00] VITALS: BP 120/78
[2019-11-06] MEDS: RT-ALBUTEROL/IPRATROPIUM 3 ML (DUONEB) VIAL INH SCH (08:11)
[2019-11-06] MEDS: RT-ADVAIR HFA 115/21 MCG PER PUFF IH SCH (08:11)
[2019-11-06] MEDS: busPIRone 15 MG (BUSPAR) TABLET PO SCH ×3 (08:38→21:43)
[2019-11-06] MEDS: meTOprolol TARTRATE 25 MG (LOPRESSOR) TABLET PO SCH ×2 (08:38→21:43)
[2019-11-06] MEDS: LEVOTHYROXINE 50 MCG (LEVOTHROID) TAB PO SCH (08:38)
[2019-11-06] MEDS: OXYBUTYNIN (DITROPAN) 5 MG TAB PO SCH (08:38)
[2019-11-06] MEDS: CYCLOBENZAPRINE 10 MG (FLEXERIL) TAB PO PRN (08:38)
[2019-11-06] MEDS: amLODIPine 5 MG (NORVASC) TAB PO SCH (08:39)
[2019-11-06] MEDS: TOLTERODINE LA 4 MG (DETROL) CAP PO SCH (08:39)
[2019-11-06] MEDS: SILVER SULFADIAZINE 400 GM CREAM TOP SCH ×2 (08:39→21:43)
[2019-11-06] MEDS: GABAPENTIN 600 MG (NEURONTIN) TAB PO SCH ×2 (08:39→21:43)
[2019-11-06] MEDS: PANTOPRAZOLE 40 MG (PROTONIX) TAB PO SCH (08:39)
[2019-11-06] MEDS: inSUlin ASPART (NovoLOG) 1 UNIT/0.01 ML (CHARGE PER UNIT) SC SCH ×2 (10:44→21:43)
[2019-11-06] MEDS: LEVOFLOXACIN 750 MG TAB (LEVAQUIN) PO SCH (11:12)
[2019-11-06 12:00] VITALS: BP 113/69
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
[2019-11-06 16:07] VITALS: BP 112/71
[2019-11-06] MEDS: MONTELUKAST 10 MG (SINGULAIR) TAB PO SCH (17:16)
[2019-11-06 20:14] VITALS: BP 134/73
[2019-11-06] MEDS: MIRTAZAPINE 15 MG (REMERON) TAB PO SCH (21:43)
[2019-11-06] MEDS: ENOXAPARIN 40 MG/0.4 ML (LOVENOX) SYR SC SCH (21:43)
[2019-11-06 23:35] VITALS: BP 137/73
[2019-11-07] MEDS: HYDROcodone/APAP 10 MG/325 MG (LORTAB) TAB PO PRN ×4 (00:06→18:01)
[2019-11-07 04:47] VITALS: BP 122/78
[2019-11-07 05:51] LABS: BASOPHILS % (AUTO) 0 % (0-10); EOSINOPHILS # (AUTO) 0.2 10^3/uL (0.0-0.3); EOSINOPHILS % (AUTO) 2 % (0-10); HEMATOCRIT 35 % (35-52); HEMOGLOBIN 9.8 G/DL (11.5-16.0); LYMPHOCYTES # (AUTO) 1.8 X 10^3 (1.0-4.0); LYMPHOCYTES % (AUTO) 19 % (12-44); MEAN CORPUSCULAR HEMOGLOBIN 23 PG (25-34); MEAN CORPUSCULAR HGB CONC 28 G/DL (32-36); MEAN CORPUSCULAR VOLUME 80 FL (80-99); MEAN PLATELET VOLUME 10.2 FL (7.4-10.4); MONOCYTES # (AUTO) 0.8 X 10^3 (0.0-1.0); MONOCYTES % (AUTO) 9 % (0-12); NEUTROPHILS # (AUTO) 6.5 X 10^3 (1.8-7.8); NEUTROPHILS % (AUTO) 70 % (42-75); PLATELET COUNT 337 10^3/uL (130-400); RED CELL DISTRIBUTION WIDTH 18.4 % (10.0-14.5); WHITE BLOOD COUNT 9.3 10^3/uL (4.3-11.0)
[2019-11-07] MEDS: metFORMIN 500 MG (GLUCOPHAGE) TAB PO SCH ×2 (06:07→17:44)
[2019-11-07 06:18] LABS: ALANINE AMINOTRANSFERASE 7 U/L (0-55); ALBUMIN 2.9 GM/DL (3.2-4.5); ALKALINE PHOSPHATASE 70 U/L (40-136); BILIRUBIN,TOTAL 0.1 MG/DL (0.1-1.0); BUN/CREATININE RATIO 12; CALCIUM 9.2 MG/DL (8.5-10.1); CARBON DIOXIDE 30 MMOL/L (21-32); CHLORIDE 101 MMOL/L (98-107); CREATININE SERUM 0.93 MG/DL (0.60-1.30); GFR ESTIMATED > 60; GLUCOSE 98 MG/DL (70-105); POTASSIUM 4.1 MMOL/L (3.6-5.0); SODIUM 141 MMOL/L (135-145); TOTAL PROTEIN 6.7 GM/DL (6.4-8.2)
[2019-11-07 08:00] VITALS: BP 130/74
[2019-11-07] MEDS: busPIRone 15 MG (BUSPAR) TABLET PO SCH ×3 (08:45→19:38)
[2019-11-07] MEDS: TOLTERODINE LA 4 MG (DETROL) CAP PO SCH (08:45)
[2019-11-07] MEDS: GABAPENTIN 600 MG (NEURONTIN) TAB PO SCH ×2 (08:45→19:39)
[2019-11-07] MEDS: meTOprolol TARTRATE 25 MG (LOPRESSOR) TABLET PO SCH ×2 (08:45→19:38)
[2019-11-07] MEDS: LEVOTHYROXINE 50 MCG (LEVOTHROID) TAB PO SCH (08:45)
[2019-11-07] MEDS: OXYBUTYNIN (DITROPAN) 5 MG TAB PO SCH (08:45)
[2019-11-07] MEDS: PANTOPRAZOLE 40 MG (PROTONIX) TAB PO SCH (08:45)
[2019-11-07] MEDS: amLODIPine 5 MG (NORVASC) TAB PO SCH (08:45)
[2019-11-07] MEDS: SILVER SULFADIAZINE 400 GM CREAM TOP SCH ×2 (08:46→19:39)
[2019-11-07] MEDS: inSUlin ASPART (NovoLOG) 1 UNIT/0.01 ML (CHARGE PER UNIT) SC SCH ×2 (08:46→20:53)
[2019-11-07] MEDS: RT-ALBUTEROL/IPRATROPIUM 3 ML (DUONEB) VIAL INH SCH ×2 (10:54→19:40)
[2019-11-07 11:00] VITALS: BP 122/78
[2019-11-07] MEDS: ADVAIR HFA 45/21 MCG INHALER 8 GM IH SCH ×2 (11:18→19:47)
--- NOTE | 2019-11-07 11:58 | Occupational Ther Daily Note ---
OT Current Status-Daily Note Subjective Pt seated upright in recliner at start of session, states she has been completing her UE exercises using yellow theraband. Towards the end of session, pt was tearful about not knowing more about her infection and everyone coming in with blue gowns and gloves. OT educated pt the precaution and how it keeps hosp ital personnel safe as well as other pt's so the infection is not spread any further. Pt reported she just wanted to be alone. Mental Status/Objective Attachments: Oxygen ADL-Treatment Therapy Code Descriptions/Definitions Functional [place] Measure: 0=Not Assessed/NA 4=Minimal Assistance 1=Total Assistance 5=Supervision or Setup 2=Maximal Assistance 6=Modified [place] 3=Moderate Assistance 7=Complete IndependenceSCALE: Activities may be completed with or without assistive devices. 3-Pgvybvpzxv-nkdmebj completes the activity by him/herself with no assistance from a helper. 5-Set-up or Clean-up Assistance-helper sets up or cleans up; patient completes activity. [place] assists only prior to or following the activity. 4-Supervision or Touching Assistance-helper provides verbal cues and/or touching/steadying and/or contact guard assistance as patient completes activity. Assistance may be provided throughout the activity or intermittently. 3-Partial/Moderate Assistance-helper does LESS THAN HALF the effort. [place] lifts, holds or supports trunk or limbs, but provides less than half the effort. 2-Substantial/Maximal Assistance-helper does MORE THAN HALF the effort. [place] lifts or holds trunk or limbs and provides more than half the effort. 2-Meumvukxs-eiomzf does ALL the effort. Patient does none of the effort to complete the activity. Or, the assistance of 2 or more helpers is required for the patient to complete the activity. If activity was not attempted, code reason: 7-Patient Refused. 9-Not Applicable-not attempted and the patient did not perform the activity before the current illness, exacerbation or injury. 10-Not Attempted due to Environmental Limitations-(lack of equipment, weather restraints, etc.). 88-Not Attempted due to Medical Conditions or Safety Concerns. Other Treatment Pt upright in recliner, completed BUE exercises using yellow theraband including shoulder flexion, elbow extension, and shoulder scaption x10 reps each. Pt then became tearful about not knowing more about her infection. OT attempted to help pt understand the precautions and safety for hospital staff and other patients. Pt reported she would like to be left alone. OT informed pt if she needed anything to use her call light, pt thanked OT. Post OT session, pt seated upright in recliner, call light in reach and all needs met. She was no longer te arful. Education OT Patient Education: Energy conservation, Exercise program, Progress toward Goal/Update tx plan, Purpose of tx/functional activities Teaching Recipient: Patient Teaching Methods: Demonstration, Discussion Response to Teaching: Verbalize Understanding, Return Demonstration OT Shelter Goals [employer] Superintendent Goals Time Frame: Nov 10, 2019 Eating (QC): 6 (met) Oral Hygiene (QC): 6 Toileting Hygiene (QC): 4 Shower/Bathe Self (QC): 5 Upper Body Dressing (QC): 6 Lower Body Dressing (QC): 4 On/Off Footwear (QC): 6 (met) Additional Goals: 1-Demonstrate ADL Tasks, 2-Verbalize Understanding, 3- ImproveStrength/John 1=Demonstrate adherence to instructed precautions during ADL tasks. 2=Patient will verbalize/demonstrate understanding of assistive devices/modifications for ADL. 3=Patient will improve strength/tolerance for activity to enable patient to perform ADL's. OT Education/Plan Problem List/Assessment Assessment: Decreased Activ Tolerance, Decreased UE Strength, Impaired I ADL's, Impaired Self-Care Skills Discharge Recommendations Plan/Recommendations: Continue POC Treatment Plan/Plan of Care Treatment,Training & Education: Yes Patient would benefit from OT for education, treatment and training to promote independence in ADL's, mobility, safety and/or upper extremity function for ADL's. Plan of Care: ADL Retraining, Caregiver Training, Concurrent Therapy, Functional Mobility, UE Funct Exercise/Act Treatment Duration: Nov 10, 2019 Frequency: 5 times per week Estimated Hrs Per Day: .25 hour per day Agreement: Yes Rehab Potential: Fair Time/GCodes Start Time: 11:30 Stop Time: 11:38 Total Time Billed (hr/min): 8 Billed Treatment Time 1, EX RODRIGUEZ ARTHUR OT Nov 07, 2019 11:58 POS
[2019-11-07 12:00] VITALS: BP 126/66
[2019-11-07] MEDS: LEVOFLOXACIN 750 MG TAB (LEVAQUIN) PO SCH (12:03)
[2019-11-07 16:48] VITALS: BP 114/60
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
[2019-11-07] MEDS: MONTELUKAST 10 MG (SINGULAIR) TAB PO SCH (17:44)
[2019-11-07] MEDS: CYCLOBENZAPRINE 10 MG (FLEXERIL) TAB PO PRN (18:05)
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
[2019-11-07] MEDS: ENOXAPARIN 40 MG/0.4 ML (LOVENOX) SYR SC SCH (19:38)
[2019-11-07] MEDS: MIRTAZAPINE 15 MG (REMERON) TAB PO SCH (19:39)
[2019-11-07 20:40] VITALS: BP 118/67
[2019-11-08 00:48] VITALS: BP 106/68
[2019-11-08] MEDS: HYDROcodone/APAP 10 MG/325 MG (LORTAB) TAB PO PRN ×2 (05:49→13:18)
[2019-11-08] MEDS: metFORMIN 500 MG (GLUCOPHAGE) TAB PO SCH (05:50)
[2019-11-08 06:51] LABS: BASOPHILS % (AUTO) 0 % (0-10); EOSINOPHILS # (AUTO) 0.2 10^3/uL (0.0-0.3); EOSINOPHILS % (AUTO) 2 % (0-10); HEMATOCRIT 39 % (35-52); HEMOGLOBIN 10.7 G/DL (11.5-16.0); LYMPHOCYTES # (AUTO) 1.8 X 10^3 (1.0-4.0); LYMPHOCYTES % (AUTO) 18 % (12-44); MEAN CORPUSCULAR HEMOGLOBIN 23 PG (25-34); MEAN CORPUSCULAR HGB CONC 28 G/DL (32-36); MEAN CORPUSCULAR VOLUME 82 FL (80-99); MEAN PLATELET VOLUME 10.1 FL (7.4-10.4); MONOCYTES % (AUTO) 10 % (0-12); NEUTROPHILS # (AUTO) 6.9 X 10^3 (1.8-7.8); NEUTROPHILS % (AUTO) 70 % (42-75); PLATELET COUNT 303 10^3/uL (130-400); RED CELL DISTRIBUTION WIDTH 18.6 % (10.0-14.5); WHITE BLOOD COUNT 9.8 10^3/uL (4.3-11.0)
[2019-11-08 07:12] LABS: BUN/CREATININE RATIO 14; CALCIUM 9.9 MG/DL (8.5-10.1); CARBON DIOXIDE 29 MMOL/L (21-32); CHLORIDE 99 MMOL/L (98-107); CREATININE SERUM 0.87 MG/DL (0.60-1.30); GFR ESTIMATED > 60; GLUCOSE 83 MG/DL (70-105); POTASSIUM 4.2 MMOL/L (3.6-5.0); SODIUM 141 MMOL/L (135-145)
[2019-11-08 08:00] VITALS: BP 101/67
[2019-11-08] MEDS: ADVAIR HFA 45/21 MCG INHALER 8 GM IH SCH (08:40)
[2019-11-08] MEDS: RT-ALBUTEROL/IPRATROPIUM 3 ML (DUONEB) VIAL INH SCH (08:40)
[2019-11-08] MEDS: meTOprolol TARTRATE 25 MG (LOPRESSOR) TABLET PO SCH (08:58)
[2019-11-08] MEDS: GABAPENTIN 600 MG (NEURONTIN) TAB PO SCH (08:58)
[2019-11-08] MEDS: OXYBUTYNIN (DITROPAN) 5 MG TAB PO SCH (08:58)
[2019-11-08] MEDS: amLODIPine 5 MG (NORVASC) TAB PO SCH (08:58)
[2019-11-08] MEDS: busPIRone 15 MG (BUSPAR) TABLET PO SCH ×2 (08:58→13:17)
[2019-11-08] MEDS: LEVOTHYROXINE 50 MCG (LEVOTHROID) TAB PO SCH (08:58)
[2019-11-08] MEDS: PANTOPRAZOLE 40 MG (PROTONIX) TAB PO SCH (08:58)
[2019-11-08] MEDS: TOLTERODINE LA 4 MG (DETROL) CAP PO SCH (08:58)
[2019-11-08] MEDS: inSUlin ASPART (NovoLOG) 1 UNIT/0.01 ML (CHARGE PER UNIT) SC SCH (09:02)
[2019-11-08] MEDS: SILVER SULFADIAZINE 400 GM CREAM TOP SCH (09:08)
--- NOTE | 2019-11-08 09:48 | Occupational Ther Daily Note ---
OT Current Status-Daily Note Subjective Pt seated upright in recliner, agreeable to OT tx with focus on ADLs. Pt reported she is ready to go home. She told OT that she was sorry for yesterday, everything that is happening at home was on her mind. She misses her dog, and some of her family members are having medical issues of their own that she was t hinking about during tx yesterday. Pt stated she was feeling better today and in better spirits. Mental Status/Objective Attachments: Oxygen ADL-Treatment Therapy Code Descriptions/Definitions Functional [place] Measure: 0=Not Assessed/NA 4=Minimal Assistance 1=Total Assistance 5=Supervision or Setup 2=Maximal Assistance 6=Modified [place] 3=Moderate Assistance 7=Complete IndependenceSCALE: Activities may be completed with or without assistive devices. 8-Bhjmbypxuv-miqlevu completes the activity by him/herself with no assistance from a helper. 5-Set-up or Clean-up Assistance-helper sets up or cleans up; patient completes activity. [place] assists only prior to or following the activity. 4-Supervision or Touching Assistance-helper provides verbal cues and/or touching/steadying and/or contact guard assistance as patient completes activity. Assistance may be provided throughout the activity or intermittently. 3-Partial/Moderate Assistance-helper does LESS THAN HALF the effort. [place] lifts, holds or supports trunk or limbs, but provides less than half the effort. 2-Substantial/Maximal Assistance-helper does MORE THAN HALF the effort. [place] lifts or holds trunk or limbs and provides more than half the effort. 0-Zvwtmssza-frjnyw does ALL the effort. Patient does none of the effort to complete the activity. Or, the assistance of 2 or more helpers is required for the patient to complete the activity. If activity was not attempted, code reason: 7-Patient Refused. 9-Not Applicable-not attempted and the patient did not perform the activity before the current illness, exacerbation or injury. 10-Not Attempted due to Environmental Limitations-(lack of equipment, weather restraints, etc.). 88-Not Attempted due to Medical Conditions or Safety Concerns. Shower/Bathe Self (QC): 3 (Pt completed spongebath in recliner with set up of warm wet wipes. She was able to wash BUE, chest, abdomen, periarea, and BLEs. She declined washing buttocks on this date. Based on clinical reasoning pt would most likely require assistance with this part of task. ) Upper Body Dressing (QC): 3 (Pt was able to don/doff hospital gown, only requiring assistance with the tie.) Other Treatment Pt seated in recliner throughout session, completed sponge bath and dressing at recliner. Post OT session, pt upright in recliner, call light in reach and all needs met. Education OT Patient Education: Correct positioning, Energy conservation, Modified ADL techniques, Progress toward Goal/Update tx plan, Purpose of tx/functional activities Teaching Recipient: Patient Teaching Methods: Demonstration, Discussion Response to Teaching: Verbalize Understanding, Return Demonstration OT Prison Goals Feeder/Folder Goals Time Frame: Nov 10, 2019 Eating (QC): 6 (met) Oral Hygiene (QC): 6 Toileting Hygiene (QC): 4 Shower/Bathe Self (QC): 5 Upper Body Dressing (QC): 6 Lower Body Dressing (QC): 4 On/Off Footwear (QC): 6 (met) Additional Goals: 1-Demonstrate ADL Tasks, 2-Verbalize Understanding, 3- ImproveStrength/Jhon 1=Demonstrate adherence to instructed precautions during ADL tasks. 2=Patient will verbalize/demonstrate understanding of assistive devices/modifi cations for ADL. 3=Patient will improve strength/tolerance for activity to enable patient to perform ADL's. OT Education/Plan Problem List/Assessment Assessment: Decreased Activ Tolerance, Decreased UE Strength, Impaired Funct Balance, Impaired I ADL's, Impaired Self-Care Skills Discharge Recommendations Plan/Recommendations: Continue POC Treatment Plan/Plan of Care Treatment,Training & Education: Yes Patient would benefit from OT for education, treatment and training to promote independence in ADL's, mobility, safety and/or upper extremity function for ADL's. Plan of Care: ADL Retraining, Caregiver Training, Concurrent Therapy, Functional Mobility, UE Funct Exercise/Act Treatment Duration: Nov 10, 2019 Frequency: 5 times per week Estimated Hrs Per Day: .25 hour per day Agreement: Yes Rehab Potential: Fair Time/GCodes Start Time: 08:20 Stop Time: 08:35 Total Time Billed (hr/min): 15 Billed Treatment Time 1, ADL RODRIGUEZ ARTHUR OT Nov 08, 2019 09:48 POS
--- NOTE | 2019-11-08 10:24 | NUR ---
DISCHARGE PLANNING: Patient to discharge to to home where she lives with her sister/jon'. She has [place] that comes over to yard demurrage clerk her a bath and clean. She will need a walker and already has a wheelchair at home. She needs home health care to assist with wound care between her OUTPT wound care appointments. [facility] is her choice for home health and I have sent a message to them regarding this need. If they accept they will see her likely .
[2019-11-08] MEDS ORDERED: HYDR-3820 PO (11:45)
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
[2019-11-08] MEDS ORDERED: SILVER SULFADIAZINE 400 GM CREAM TOP SCH (14:00)
--- OUTSIDE RECORDS SUMMARY | 2019-11-26 21:31 | XMS REPORT | Encounter Summary ---
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 Name Role Phone Osvaldo Palafox DO Unavailable Hermila Durbin MD Unavailable Unavailable Rishi Cartwright MD Unavailable Donell Haque PA-C Unavailable Lizet Parsons RN Unavailable Unavailable Kristofer Dowling MD Unavailable Unavailable Harvinder Jj MD PCP Slade Merino DO 4 Encounter Details Care Team Description Date Type Department Rishi Cartwright MD [address] [facility] [address] [place] [address] 06/08/2019 Documentation [facility] [address] [place] [address] Social History Date Tobacco Use [...] patient have an activity of daily living Ye s (ADL) impairment: 10/16/2018 Does the patient have an instrumental activity of Ye s daily living (IADL) impairment: Date of Assessment Cognitive Status Response 10/16/2018 Does the patient have a cognitive impairment: No documented as of this encounter Progress Notes * Ruba Yeager RN - 06/08/2019 6:06 PM CDT Prior Authorization initiated for Myrbetriq. Patient has tried oxybutynin and tr ospium in the past. Awaiting response from insurance. documented in this encounter Plan of Treatment Not on filedocumented as of this encounter Visit Diagnoses Not on filedocumented in this encounter Additional Health Concerns Resolved Time Infection Noted Time ESBL 02/15/2015 9:40 AM CDT documented as of this encounter
--- OUTSIDE RECORDS SUMMARY | 2019-11-26 21:31 | XMS REPORT ---
Author Author Xin LEONARD Organization [facility] Address [address] [place] [address] Care Team Providers Care Trimmer Climber Name Role Phone ETELVINA LEONARD Unavailable PROBLEMS Type Condition ICD9-CM Code DIC34-WO Code Onset Dates Condition S tatus SNOMED Code Problem Prediabetes R73.03 Active 41927661 2 Problem Essential hypertension I10 Active 60203014 Problem Reactive depression F32.9 Active 51196038 Problem Sinusitis J32.9 Active 23766216 Problem Seasonal allergies J30.2 Active 4 56714645 Problem Lumbago with sciatica, right side M54.41 Active [id number] Problem Lumbago with sciatica, left side M54.42 Active 062929495 Problem Chronic obstructive pulmonary disease, unspecified COPD ty pe J44.9 Active 17408807 Problem Other chronic pain G89.29 Active 8 3125121 Problem DM neuro manif type II E11.49 Active 70073444 Problem Cigarette nicotine dependence without complication F17.210 Active 67885409 Problem Iron deficiency anemia due to chronic blood loss D 50.0 Active 387160560 Problem Seizures R56.9 Active 41614953 Problem Chronic pain G89.29 Active 0310921 1 Problem Adjustment disorder with disturbance of emotion F4 3.29 Active 23256729 Problem Major depressive disorder, recurrent, moderate F33 .1 Active 887325528 Problem Chronic obstructive pulmonar y disease with acute lower respiratory infection J44.0 Active 601730413 Problem Acquired hypothyroidism E03.9 Active 246674604 Problem Chronic obstructive pulmonar y disease with acute lower respiratory infection J44.0 Active 772729337 Problem Mixed hyperlipidemia E78.2 Active 975912220 Problem Gastroesophageal reflux disease, esophagitis pre sence not specified K21.9 Active 976821402 Problem Generalized anxiety disorder F41.1 A ctive 31244910 Problem Urinary incontinence in female R32 Active 692602652 Problem Controlled type 2 diabetes m ellitus without complication, without long- term current use of insulin E11.9 Active 465771454 Problem Primary insomnia F51.01 Active 397 2004 ALLERGIES No Information ENCOUNTERS Encounter Location Date Diagnosis [facility] [address] [facility] [id number] [address] [place] [phone] Aug, [facility] [address] [facility] [id number] [address] [place] [id number] Aug, [facility] [address] [facility] [id number] [address] [place] [phone] Aug, [facility] [address] [facility] [id number] [address] [place] [id number] Jul, [facility] [address] [facility] [id number] [address] [place] [id number] Jul, [facility] [address] [facility] [id number] [address] [place] [phone] Jul, [facility] [address] [facility] [id number] [address] [place] [id number] 16 Jul, 2019 [facility] [address] [facility] [id number] [address] [place] [id number] Jul, Respiratory difficulty R06.0 3 and Chronic obstructive pulmonary disease with acute lower respiratory infection J44.0 [facility] [address] [facility] [id number] [address] [place] [id number] Jul, [facility] [address] [facility] [id number] [address] [place] [phone] Jul, [facility] [address] [facility] [id number] [address] [place] [phone] Jul, [facility] [address] [place] [id number] [address] [place] [id number] 05 Jul, 2019 Major depressive disorder, r ecurrent, moderate F33.1 ; Generalized anxiety disorder F41.1 and Primary insomnia F51.01 [facility] [address] [facility] [id number] [address] [place] [id number] Jul, [place] [id number] [facility] [id number] [address] [place] [id number] Jul, Primary insomnia F51.01 [place] [address] [facility] [id number] [address] [place] [id number] Jul, Major depressive disorder, r ecurrent, moderate F33.1 ; Generalized anxiety disorder F41.1 and Primary insomnia F51.01 [place] [address] [facility] [id number] [address] [place] [phone] Jul, Chronic obstructive pulmonar y disease, unspecified COPD type J44.9 ; Controlled type 2 diabetes mellitus without complication, without long-term current use of insulin E11.9 ; Lumbago with sciatica, left side M54.42 and Other chronic pain G89.29 [place] [address] [place] [id number] [place] [id number] Jun, [place] [address] [place] [id number] [place] [phone] Jun, Major depressive disorder, r ecurrent, moderate F33.1 and Generalized anxiety disorder F41.1 [place] [address] [id number] May, [place] [address] [place] [id number] [address] [place] [id number] May, Encounter for immunization Z 23 [facility] [address] [facility] [id number] [address] [place] [id number] May, UTI (urinary tract infection ) N39.0 and Urinary incontinence in female R32 [place] [address] [facility] [id number] [address] [place] [phone] May, Major depressive disorder, r ecurrent, moderate F33.1 and Generalized anxiety disorder F41.1 [facility] [address] [facility] [id number] [address] [place] [id number] May, Bronchitis J40 [place] [address] [place] [id number] [address] [place] [id number] May, Major depressive disorder, r ecurrent, moderate F33.1 and Adjustment disorder with disturbance of emotion F43.29 [place] [address] [facility] [id number] [address] [place] [phone] Apr, [place] [address] [place] [id number] [place] [id number] 18 Apr, 2019 Type 2 diabetes mellitus wit h hyperglycemia E11.65 [place] [address] [facility] [id number] [place] [id number] 17 Apr, 2019 Type 2 diabetes mellitus wit h hyperglycemia E11.65 [place] [address] [id number] Apr, Major depressive disorder, r ecurrent, moderate F33.1 and Adjustment disorder with disturbance of emotion F43.29 [place] [address] [id number] Apr, [place] [address] [address] Apr, Diarrhea, unspecified type R 19.7 [place] [address] [id number] Apr, Low back pain M54.5 ; Other chronic pain G89.29 and Anemia, unspecified type D64.9 [place] [address] [place] [id number] [address] [place] [phone] Apr, [place] [address] [place] [id number] [address] [place] [phone] Apr, Diarrhea, unspecified type R 19.7 and Lumbar radiculopathy, chronic M54.16 [facility] [address] [place] [id number] [address] [place] [id number] March, Non-intractable vomiting wit h nausea, unspecified vomiting type R11.2 and Muscle cramps R25.2 [place] [address] [place] [id number] [address] [place] [id number] March, [facility] [address] [facility] [id number] [address] [place] [id number] March, Other chronic pain G89.29 [facility] [address] [facility] [id number] [address] [place] [id number] March, Type 2 diabetes mellitus wit h hyperglycemia E11.65 ; Flank pain R10.9 ; Acute cystitis without hematuria N30.00 ; Chronic obstructive pulmonary disease, unspecified COPD type J44.9 and Moderate episode of recurrent major depressive disorder F33.1 [facility] [address] [id number] March, [facility] [address] [place] [id number] [address] [place] [id number] March, Wheezing R06.2 and Viral upp er respiratory tract infection J06.9 [facility] [address] [place] [id number] [address] [place] [phone] Feb, [facility] [address] [place] [id number] [address] [place] [phone] Feb, [facility] [address] [place] [id number] [address] [place] [phone] Jan, [facility] [address] [place] [id number] [address] [place] [id number] Jan, Acute cystitis with hematuri a N30.01 and Dysuria R30.0 [facility] [address] [facility] [id number] [address] [place] [id number] Jan, [facility] [address] [place] [id number] [address] [place] [id number] Dec, [facility] [address] [place] [id number] [address] [place] [phone] Dec, [facility] [address] [place] [id number] [address] [place] [phone] Dec, [facility] [address] [id number] [address] [place] [id number] Dec, [facility] [address] [id number] [address] [place] [id number] Dec, Routine [facility] lizettee Z00.00 ; Chronic obstructive pulmonary disease, unspecified COPD type J44.9 and Encounter for immunization Z23 [facility] [address] [id number] [address] [place] [id number] Nov, [facility] [address] [id number] [address] [place] [id number] Nov, UTI (urinary tract infection ) N39.0 and Other chronic pain G89.29 [facility] [address] [id number] [address] [place] [phone] Nov, [facility] [address] [id number] [address] [place] [phone] Nov, [facility] [address] [id number] [address] [place] [id number] Nov, Painful urination R30.9 and UTI (urinary tract infection) N39.0 [facility] [address] [id number] [address] [place] [phone] Nov, [facility] [address] [id number] [address] [place] [id number] Nov, UTI (urinary tract infection ) N39.0 [facility] [address] [id number] [address] [place] [id number] Nov, Dysuria R30.0 ; UTI (urinary tract infection) N39.0 and Chronic pain G89.29 [facility] [address] [id number] [address] [place] [id number] Nov, [facility] [address] [id number] [address] [place] [phone] Oct, Cough R05 [place] [address] [facility] [id number] [address] [place] [id number] 14 Oct, 2018 Sinusitis J32.9 [place] [address] [facility] [id number] [address] [place] [phone] Oct, [place] [address] [facility] [id number] [address] [place] [id number] Oct, UTI (urinary tract infection ) N39.0 and URI (upper respiratory infection) J06.9 [place] [address] [facility] [id number] [address] [place] [phone] Sep, Pain in thoracic spine M54.6 [place] [address] [facility] [id number] [address] [place] [id number] Sep, Type 2 diabetes mellitus wit h hyperglycemia E11.65 [place] [address] [place] [id number] [place] [id number] Sep, Chronic obstructive pulmonar y disease, unspecified COPD type J44.9 ; Abrasion of right ear canal, initial encounter S00.411A ; Cigarette nicotine dependence without complication F17.210 ; Right leg pain M79.604 and Seasonal allergies J30.2 [place] [address] [facility] [id number] [address] [place] [id number] Aug, [place] [address] [facility] [id number] [address] [place] [id number] Aug, [place] [address] [facility] [id number] [address] [place] [id number] Aug, Pain in thoracic spine M54.6 [place] [address] [facility] [id number] [address] [place] [id number] Aug, [place] [address] [facility] [id number] [address] [place] [id number] Aug, Chronic obstructive pulmonar y disease, unspecified COPD type J44.9 ; Complete amputation of right foot, 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 ; Cigarette nicotine dependence without complication F17.210 and BMI 40.0-44.9, adult Z68.41 [place] [id number] [facility] [id number] [address] [place] [id number] Jul, [place] [address] [facility] [id number] [address] [place] [phone] Jul, [place] [address] [place] [id number] [place] [id number] Jul, Onychomycosis B35.1 ; 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 and DM neuro manif type II E11.49 [place] [address] [facility] [id number] [address] [place] [address] Jun, Pain in thoracic spine M54.6 [place] [address] [place] [id number] [address] [place] [phone] Jun, Iron deficiency anemia due t o chronic blood loss D50.0 and Hematochezia K92.1 [place] [address] [place] [id number] [address] [place] [id number] Jun, Gastroenteritis K52.9 and Ab normal RBC indices R71.8 [place] [address] [place] [id number] [address] [place] [phone] Jun, [place] [address] [place] [id number] [address] [place] [id number] Jun, Chest congestion R09.89 and Seizures R56.9 [place] [address] [facility] [id number] [address] [place] [phone] May, Pain in thoracic spine M54.6 [place] [address] [facility] [id number] [address] [place] [id number] May, [place] [address] [place] [id number] [address] [place] [id number] May, [place] [address] [place] [id number] [address] [place] [id number] May, [place] [address] [place] [id number] [address] [place] [phone] May, Acute non-recurrent frontal sinusitis J01.10 and Dermatitis L30.9 [facility] [address] [id number] [address] [place] [phone] May, [facility] [address] [id number] [address] [place] [phone] May, Pain in thoracic spine M54.6 [facility] [address] [id number] [address] [place] [id number] May, [facility] [address] [id number] [address] [place] [phone] May, Acute nasopharyngitis J00 [facility] [address] [id number] [address] [place] [phone] May, [facility] [address] [id number] [address] [place] [id number] May, [facility] [address] [id number] [address] [place] [phone] Apr, [facility] [address] [id number] [address] [place] [id number] Apr, [facility] [address] [id number] [address] [place] [id number] Apr, [facility] [address] [id number] [address] [place] [id number] Apr, [facility] [address] [id number] [address] [place] [id number] Apr, Pain in right ankle and join ts of right foot M25.571 [facility] [address] [id number] [address] [place] [id number] Apr, [facility] [address] [id number] [address] [place] [id number] Apr, Bronchitis J40 ; Pain in rig ht ankle and joints of right foot M25.571 ; Other chronic pain G89.29 ; Prediabetes R73.03 ; Chronic obstructive pulmonary disease, unspecified COPD type J44.9 and Cigarette nicotine dependence without complication F17.210 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 and DM neuro manif type II E11.49 [place] [address] [address] Apr, Reactive depression F32.9 ; Thoracic myofascial strain, initial encounter S29.019A and Leg cramps R25.2 [place] [address] [address] March, [place] [id number] [place] [id number] [address] [place] [address] March, Type 2 diabetes mellitus wit h hyperglycemia E11.65 [place] [address] [address] March, Reactive depression F32.9 [place] [address] [address] March, Pain in thoracic spine M54.6 and Other chronic pain G89.29 [facility] [address] [place] [id number] [address] [place] [id number] Feb, [place] [address] [id number] Jan, Reactive depression F32.9 ; Essential hypertension I10 ; Gastroesophageal reflux disease, esophagitis presence not specified K21.9 ; Lumbago with sciatica, left side M54.42 and Lumbago with sciatica, right side M54.41 [place] [address] [address] Jan, Reactive depression F32.9 an d Pharyngoesophageal dysphagia R13.14 [place] [address] [address] Jan, [place] [address] [address] Jan, Encounter for immunization Z 23 [place] [address] [address] Jan, Onychomycosis B35.1 and DM n euro manif type II E11.49 [place] [address] [address] Jan, [place] [address] [address] Jan, Prediabetes R73.03 [place] [address] [address] Dec, [place] [address] [address] Dec, Essential hypertension I10 ; Mixed hyperlipidemia E78.2 ; Acquired hypothyroidism E03.9 ; Reactive depression F32.9 and Prediabetes R73.03 [place] [address] [address] Dec, [place] [address] [address] Dec, [place] [address] [address] Dec, DM neuro manif type II E11.4 9 [facility] [address] [id number] 08 Dec, 2017 Bruise T14.8XXA ; Type 2 sade betes mellitus with hyperglycemia E11.65 and activity coordinator current use of insulin Z79.4 [facility] [address] [id number] [address] [place] [phone] Oct, [facility] [address] [id number] [address] [place] [id number] March, Onychomycosis B35.1 and DM n euro manif type II E11.49 [facility] [address] [id number] [address] [place] [id number] Jun, [facility] [address] [id number] [address] [place] [phone] Jun, [facility] [address] [id number] [address] [place] [id number] Jun, COPD with acute exacerbation 491.21 [facility] [address] [id number] [address] [place] [address] Apr, [facility] [address] [id number] [address] [place] [phone] Feb, [facility] [address] [id number] [address] [place] [phone] Feb, [facility] [address] [id number] [address] [place] [phone] Jan, [facility] [address] [id number] [address] [place] [phone] Jan, [facility] [address] [id number] [address] [place] [phone] Jan, [facility] [address] [id number] [address] [place] [phone] Jan, [facility] [address] [id number] [address] [place] [phone] Jan, [facility] [address] [id number] [address] [place] [phone] Jan, [facility] [address] [id number] [address] [place] [phone] Jan, 2014 [facility] [address] [id number] [facility] [id number] 23 Jan, 2014 [facility] [address] [id number] [facility] [id number] 23 Jan, 2014 [facility] [address] [id number] [address] [place] [address], [place] [id number] 19 Jan, 2014 [facility] [address] [id number] [address] [place] [address], [place] [id number] 19 Jan, 2014 [facility] [address] [id number] [address] [place] [address], [place] [id number] 18 Jan, 2014 [facility] [address] [id number] [address] [place] [address], [place] [id number] 18 Jan, 2014 [facility] [address] [id number] [address] [place] [address], [place] [id number] 16 Jan, 2014 [facility] [address] [id number] [address] [place] [address], [place] [id number] 16 Jan, 2014 [facility] [address] [id number] [address] [place] [address], [place] [id number] 16 Jan, 2014 [facility] [address] [id number] [address] [place] [address], [place] [id number] 16 Jan, 2014 [facility] [address] [id number] [address] [place] [address], [place] [id number] 15 Jan, 2014 [facility] [address] [id number] [address] [place] [address], [place] [id number] 13 Jan, 2014 [facility] [address] [id number] [address] [place] [address], [place] [id number] 13 Jan, 2014 [facility] [address] [id number] [address] [place] [address], [place] [id number] 13 Jan, 2014 [facility] [address] [id number] [address] [place] [address], [place] [id number] 13 Jan, 2014 [facility] [address] [id number] [address] [place] [address], [place] [id number] Jan, [facility] [address] [id number] [address] [place] [address], [place] [id number] Jan, [facility] [address] [id number] [address] [place] [address], [place] [id number] Jan, [facility] [address] [id number] [address] [place] [address], [place] [id number] Dec, 2014 [facility] [address] [id number] [address] [place] [address], [place] [id number] Dec, 2014 [facility] [address] [id number] [address] [place] [address], [place] [id number] Dec, 2014 [facility] [address] [id number] [address] [place] [address], [place] [id number] Dec, 2014 [facility] [address] [id number] [address] [place] [address], [place] [id number] Dec, 2014 [facility] [address] [id number] [address] [place] [address], [place] [id number] Dec, 2014 [facility] [address] [id number] [address] [place] [address], [place] [id number] Dec, 2014 [facility] [address] [id number] [address] [place] [id number] Dec, 2014 [facility] [address] [id number] [address] [place] [id number] Dec, 2014 [facility] [address] [id number] [address] [place] [address], [place] [id number] Dec, 2014 [facility] [address] [id number] [address] [place] [address], [place] [id number] 16 Dec, 2014 [facility] [address] [id number] [address] [place] [id number] 16 Dec, 2014 [facility] [address] [id number] [address] [place] [id number] Nov, [facility] [address] [id number] [address] [place] [address], [place] [id number] Nov, [facility] [address] [id number] [address] [place] [address], [place] [id number] Nov, [facility] [address] [id number] [address] [place] [address], [place] [id number] Nov, [facility] [address] [id number] [address] [place] [address], [place] [id number] Nov, [facility] [address] [id number] [address] [place] [address], [place] [id number] Nov, [facility] [address] [id number] [address] [place] [address], [place] [id number] Nov, [facility] [address] [id number] [address] [place] [address], [place] [id number] Nov, [facility] [address] [id number] [address] [place] [address], [place] [id number] Nov, [facility] [address] [id number] [address] [place] [address], [place] [id number] Nov, [facility] [address] [id number] [address] [place] [address], [place] [id number] Nov, [facility] [address] [id number] [address] [place] [address], [place] [id number] Nov, [facility] [address] [id number] [address] [place] [address], [place] [id number] Oct, [facility] [address] [id number] [address] [place] [address], [place] [id number] Oct, [facility] [address] [id number] [address] [place] [address], [place] [id number] Oct, [facility] [address] [id number] [address] [place] [address], [place] [id number] Oct, [facility] [address] [id number] [address] [place] [address], [place] [id number] 29 Oct, 2014 [facility] [address] [id number] [address] [place] [address], [place] [id number] 29 Oct, 2014 [facility] [address] [id number] [address] [place] [address], [place] [id number] Oct, [facility] [address] [id number] [address] [place] [address], [place] [id number] Oct, [facility] [address] [id number] [address] [place] [address], [place] [id number] 17 Oct, 2014 [facility] [address] [id number] [address] [place] [address], [place] [id number] 17 Oct, 2014 [facility] [address] [id number] [address] [place] [address], [place] [id number] 16 Oct, 2014 [facility] [address] [id number] [address] [place] [address], [place] [id number] 16 Oct, 2014 [facility] [address] [id number] [address] [place] [address], [place] [id number] 15 Oct, 2014 [facility] [address] [id number] [address] [place] [address], [place] [id number] 15 Oct, 2014 [facility] [address] [id number] [address] [place] [address], [place] [id number] 08 Oct, 2014 [facility] [address] [id number] [address] [place] [address], [place] [id number] Sep, [facility] [address] [id number] [address] [place] [address], [place] [id number] Sep, [facility] [address] [id number] [address] [place] [address], [place] [id number] Sep, [facility] [address] [id number] [address] [place] [address], [place] [id number] Sep, [facility] [address] [id number] [address] [place] [address], [place] [id number] Aug, [facility] [address] [id number] [address] [place] [address], [place] [id number] Aug, [facility] [address] [id number] [address] [place] [address], [place] [id number] Aug, [facility] [address] [id number] [address] [place] [address], [place] [id number] Aug, [facility] [address] [id number] [address] [place] [address], [place] [id number] Aug, [facility] [address] [id number] [address] [place] [address], [place] [id number] Aug, [facility] [address] [id number] [address] [place] [address], [place] [id number] 29 Jul, 2014 [facility] [address] [id number] [address] [place] [address], [place] [id number] 29 Jul, 2014 [facility] [address] [id number] [address] [place] [address], [place] [id number] 15 Jul, 2014 [facility] [address] [id number] [address] [place] [address], [place] [id number] 15 Jul, 2014 [facility] [address] [id number] [address] [place] [address], [place] [id number] 08 Jul, 2014 [facility] [address] [id number] [address] [place] [address], [place] [id number] 08 Jul, 2014 [facility] [address] [id number] [address] [place] [id number] Jun, [facility] [address] [id number] [address] [place] [address], [place] [id number] Jun, [facility] [address] [id number] [address] [place] [address], [place] [id number] Jun, [facility] [address] [id number] [address] [place] [address], [place] [id number] Jun, [facility] [address] [id number] [address] [place] [id number] Jun, [facility] [address] [id number] [facility] [place] [id number] Jun, [facility] [address] [id number] [address] [place] [address], [place] [id number] Jun, [facility] [address] [id number] [address] [place] [address], [place] [id number] May, [facility] [address] [id number] [address] [place] [address], [place] [id number] May, [facility] [address] [id number] [address] [place] [address], [place] [id number] May, [facility] [address] [id number] [address] [place] [address], [place] [id number] May, [facility] [address] [id number] [address] [place] [address], [place] [id number] May, [facility] [address] [id number] [address] [place] [address], [place] [id number] May, [facility] [address] [id number] [address] [place] [address], [place] [id number] May, [facility] [address] [id number] [address] [place] [address], [place] [id number] May, [facility] [address] [id number] [address] [place] [address], [place] [id number] May, [facility] [address] [id number] [address] [place] [address], [place] [id number] May, [facility] [address] [id number] [address] [place] [address], [place] [id number] May, [facility] [address] [id number] [address] [place] [address], [place] [id number] May, [facility] [address] [id number] [address] [place] [address], [place] [id number] Apr, [facility] [address] [id number] [facility] [place] [id number] Apr, [facility] [address] [id number] [facility] [place] [address] Apr, [facility] [address] [id number] [facility] [place] [id number] Apr, [facility] [address] [id number] [address] [place] [address], [place] [id number] Apr, [facility] [address] [id number] [address] [place] [address], [place] [id number] Apr, [facility] [address] [id number] [address] [place] [address], [place] [id number] Apr, [facility] [address] [id number] [address] [place] [address], [place] [id number] Apr, [facility] [address] [id number] [address] [place] [address], [place] [id number] Apr, [facility] [address] [id number] [address] [place] [address], [place] [id number] Apr, [facility] [address] [id number] [address] [place] [address], [place] [id number] March, [facility] [address] [id number] [address] [place] [address], [place] [id number] March, [facility] [address] [id number] [address] [place] [address], [place] [id number] March, [facility] [address] [id number] [address] [place] [address], [place] [id number] March, [facility] [address] [id number] [address] [place] [address], [place] [id number] March, [facility] [address] [id number] [address] [place] [address], [place] [id number] March, [facility] [address] [id number] [address] [place] [address], [place] [id number] Feb, [facility] [address] [id number] [facility] [place] [id number] Feb, [facility] [address] [id number] [facility] [place] [id number] Feb, [facility] [address] [id number] [address] [place] [address], [place] [id number] Feb, [facility] [address] [id number] [address] [place] [address], [place] [id number] Feb, [facility] [address] [id number] [address] [place] [address], [place] [id number] Feb, [facility] [address] [id number] [address] [place] [address], [place] [id number] Feb, [facility] [address] [id number] [address] [place] [address], [place] [id number] Feb, [facility] [address] [id number] [address] [place] [address], [place] [id number] Feb, [facility] [address] [id number] [address] [place] [address], [place] [id number] Feb, [facility] [address] [id number] [address] [place] [address], [place] [id number] Jan, [facility] [address] [id number] [address] [place] [address], [place] [id number] Jan, [facility] [address] [id number] [address] [place] [address], [place] [id number] Jan, [facility] [address] [id number] [address] [place] [address], [place] [id number] Jan, [facility] [address] [id number] [address] [place] [address], [place] [id number] Jan, [facility] [address] [id number] [address] [place] [address], [place] [id number] Jan, [facility] [address] [id number] [address] [place] [address], [place] [id number] Jan, [facility] [address] [id number] [address] [place] [address], [place] [id number] Jan, [facility] [address] [id number] [address] [place] [address], [place] [id number] Dec, [facility] [address] [id number] [address] [place] [address], [place] [id number] Dec, [facility] [address] [id number] [address] [place] [address], [place] [id number] Dec, [facility] [address] [id number] [address] [place] [address], [place] [id number] Dec, [facility] [address] [id number] [address] [place] [address], [place] [id number] Dec, [facility] [address] [id number] [address] [place] [address], [place] [id number] Dec, [facility] [address] [id number] [address] [place] [address], [place] [id number] Dec, [facility] [address] [id number] [address] [place] [address], [place] [id number] Dec, [facility] [address] [id number] [address] [place] [address], [place] [id number] Nov, [facility] [address] [id number] [address] [place] [address], [place] [id number] Nov, [facility] [address] [id number] [address] [place] [address], [place] [id number] Nov, [facility] [address] [id number] [address] [place] [address], [place] [id number] Nov, [facility] [address] [id number] [address] [place] [address], [place] [id number] Nov, [facility] [address] [id number] [address] [place] [address] [address] Nov, [facility] [address] [id number] [address] [place] [address], [place] [id number] Nov, [facility] [address] [id number] [address] [place] [address], [place] [id number] Nov, [facility] [address] [id number] [address] [place] [address], [place] [id number] Nov, [facility] [address] [id number] [address] [place] [address], [place] [id number] Nov, [facility] [address] [id number] [address] [place] [address], [place] [id number] Nov, [facility] [address] [id number] [address] [place] [address], [place] [id number] Oct, [facility] [address] [id number] [address] [place] [address], [place] [id number] Oct, [facility] [address] [id number] [address] [place] [address], [place] [id number] Oct, [facility] [address] [id number] [address] [place] [address], [place] [id number] Oct, [facility] [address] [id number] [address] [place] [address], [place] [id number] Sep, [facility] [address] [id number] [address] [place] [address], [place] [id number] Sep, [facility] [address] [id number] [address] [place] [id number] Sep, [facility] [address] [id number] [address] [place] [address], [place] [id number] Sep, [facility] [address] [id number] [address] [place] [address], [place] [id number] Aug, [facility] [address] [id number] [address] [place] [address], [place] [id number] Aug, [facility] [address] [id number] [address] [place] [address], [place] [id number] Aug, [facility] [address] [id number] [address] [place] [address], [place] [id number] Aug, [facility] [address] [id number] [address] [place] [address], [place] [id number] Aug, [facility] [address] [id number] [address] [place] [address], [place] [id number] Aug, [facility] [address] [id number] [address] [place] [address], [place] [id number] Aug, [facility] [address] [id number] [address] [place] [address], [place] [id number] Aug, [facility] [address] [id number] [address] [place] [address], [place] [id number] 28 Sep, 2012 [facility] [address] [id number] [address] [place] [address], [place] [id number] 27 Sep, 2012 [facility] [address] [id number] [address] [place] [address], [place] [id number] 26 Sep, 2012 [facility] [address] [id number] [address] [place] [address], [place] [id number] 24 Sep, 2012 [facility] [address] [id number] [address] [place] [address], [place] [id number] 24 Sep, 2012 [facility] [address] [id number] [address] [place] [address], [place] [id number] 23 Sep, 2012 [facility] [address] [id number] [address] [place] [address], [place] [id number] 19 Sep, 2012 [facility] [address] [id number] [address] [place] [address], [place] [id number] 18 Sep, 2012 [facility] [address] [id number] [address] [place] [address], [place] [id number] 17 Sep, 2012 [facility] [address] [id number] [address] [place] [address], [place] [id number] 16 Sep, 2012 [facility] [address] [id number] [address] [place] [address], [place] [id number] 13 Jul, 2012 [facility] [address] [id number] [address] [place] [address], [place] [id number] 13 Jul, 2013 [facility] [address] [id number] [address] [place] [address], [place] [id number] 12 Jul, 2013 [facility] [address] [id number] [address] [place] [address], [place] [id number] 11 Jul, 2013 [facility] [address] [id number] [address] [place] [address], [place] [id number] 04 Jul, 2013 [facility] [address] [id number] [address] [place] [address], [place] [id number] Jun, [facility] [address] [id number] [address] [place] [address], [place] [id number] Jun, [facility] [address] [id number] [address] [place] [address], [place] [id number] Jun, [facility] [address] [id number] [address] [place] [address], [place] [id number] May, [facility] [address] [id number] [address] [place] [address], [place] [id number] May, [facility] [address] [id number] [address] [place] [address], [place] [id number] May, [facility] [address] [id number] [address] [place] [address], [place] [id number] May, [facility] [address] [id number] [address] [place] [address], [place] [id number] Apr, [facility] [address] [id number] [address] [place] [address], [place] [id number] Apr, [facility] [address] [id number] [address] [place] [address], [place] [id number] Apr, [facility] [address] [id number] [address] [place] [address], [place] [id number] Apr, [facility] [address] [id number] [address] [place] [address], [place] [id number] March, [facility] [address] [id number] [address] [place] [address], [place] [id number] March, [facility] [address] [id number] [address] [place] [address], [place] [id number] March, [facility] [address] [id number] [address] [place] [address], [place] [id number] Feb, [facility] [address] [id number] [address] [place] [address], [place] [id number] Feb, [facility] [address] [id number] [address] [place] [address], [place] [id number] Jan, [facility] [address] [id number] [address] [place] [address], [place] [id number] Jan, [facility] [address] [id number] [address] [place] [address], [place] [id number] Jan, [facility] [address] [id number] [address] [place] [address], [place] [id number] Jan, [facility] [address] [id number] [address] [place] [address], [place] [id number] Jan, [facility] [address] [id number] [address] [place] [address], [place] [id number] Dec, [facility] [address] [id number] [address] [place] [address], [place] [id number] Dec, [facility] [address] [id number] [address] [place] [address], [place] [id number] Dec, [facility] [address] [id number] [address] [place] [address], [place] [id number] Dec, [facility] [address] [id number] [address] [place] [address], [place] [id number] Dec, [facility] [address] [id number] [address] [place] [address], [place] [id number] 06 Dec, 2012 [facility] [address] [id number] [address] [place] [address], [place] [id number] Dec, [facility] [address] [id number] [address] [place] [address], [place] [id number] Dec, [facility] [address] [id number] [address] [place] [address], [place] [id number] Nov, [facility] [address] [id number] [address] [place] [address], [place] [id number] Nov, [facility] [address] [id number] [address] [place] [address], [place] [id number] Nov, [facility] [address] [id number] [address] [place] [address], [place] [id number] Nov, [facility] [address] [id number] [address] [place] [address], [place] [id number] Nov, [facility] [address] [id number] [address] [place] [address], [place] [id number] Nov, [facility] [address] [id number] [address] [place] [address], [place] [id number] Nov, [facility] [address] [id number] [address] [place] [address], [place] [id number] Oct, [facility] [address] [id number] [address] [place] [address], [place] [id number] Oct, [facility] [address] [id number] [address] [place] [address], [place] [id number] Oct, [facility] [address] [id number] [address] [place] [address], [place] [id number] Oct, [facility] [address] [id number] [address] [place] [address], [place] [id number] 05 Oct, 2012 [facility] [address] [id number] [address] [place] [address], [place] [id number] Oct, [facility] [address] [id number] [address] [place] [address], [place] [id number] Oct, [facility] [address] [id number] [address] [place] [address], [place] [id number] Oct, [facility] [address] [id number] [address] [place] [address], [place] [id number] Sep, [facility] [address] [id number] [address] [place] [address], [place] [id number] Sep, [facility] [address] [id number] [address] [place] [address], [place] [id number] Sep, [facility] [address] [id number] [address] [place] [address], [place] [id number] Sep, [facility] [address] [id number] [address] [place] [address], [place] [id number] Sep, [facility] [address] [id number] [address] [place] [address], [place] [id number] Sep, [facility] [address] [id number] [address] [place] [address], [place] [id number] Sep, [facility] [address] [id number] [address] [place] [address], [place] [id number] Sep, [facility] [address] [id number] [address] [place] [address], [place] [id number] Sep, [facility] [address] [id number] [address] [place] [address], [place] [id number] Sep, [facility] [address] [id number] [address] [place] [address], [place] [id number] Sep, [facility] [address] [id number] [address] [place] [address], [place] [id number] Sep, [facility] [address] [id number] [address] [place] [address], [place] [id number] Sep, [facility] [address] [id number] [address] [place] [address], [place] [id number] 05 Sep, 2012 [facility] [address] [id number] [address] [place] [address], [place] [id number] Sep, [facility] [address] [id number] [address] [place] [address], [place] [id number] Sep, [facility] [address] [id number] [address] [place] [address], [place] [id number] Sep, [facility] [address] [id number] [address] [place] [address], [place] [id number] Sep, [facility] [address] [id number] [address] [place] [address], [place] [id number] Sep, [facility] [address] [id number] [address] [place] [address], [place] [id number] Sep, [facility] [address] [id number] [address] [place] [address], [place] [id number] Aug, [facility] [address] [id number] [address] [place] [address], [place] [id number] 31 Aug, 2012 [facility] [address] [id number] [address] [place] [address], [place] [id number] 29 Aug, 2012 [facility] [address] [id number] [address] [place] [address], [place] [id number] 27 Aug, 2012 [facility] [address] [id number] [address] [place] [address], [place] [id number] 27 Aug, 2012 [facility] [address] [id number] [address] [place] [address], [place] [id number] 18 Aug, 2012 [facility] [address] [id number] [address] [place] [address], [place] [id number] 18 Aug, 2012 [facility] [address] [id number] [address] [place] [address], [place] [id number] 17 Aug, 2012 [facility] [address] [id number] [address] [place] [address], [place] [id number] Aug, [facility] [address] [id number] [address] [place] [address], [place] [id number] 16 Aug, 2012 [facility] [address] [id number] [address] [place] [address], [place] [id number] Aug, [facility] [address] [id number] [address] [place] [address], [place] [id number] Aug, [facility] [address] [id number] [address] [place] [address], [place] [id number] Aug, [facility] [address] [id number] [address] [place] [address], [place] [id number] Aug, [facility] [address] [id number] [address] [place] [address], [place] [id number] Aug, [facility] [address] [id number] [address] [place] [address], [place] [id number] 14 Jul, 2012 [facility] [address] [id number] [address] [place] [address], [place] [id number] Jul, [facility] [address] [id number] [address] [place] [address], [place] [id number] Jun, [facility] [address] [id number] [address] [place] [address], [place] [id number] Jun, [facility] [address] [id number] [address] [place] [address], [place] [id number] May, [facility] [address] [id number] [address] [place] [id number] May, [facility] [address] [id number] [address] [place] [address], [place] [id number] May, [facility] [address] [id number] [address] [place] [address], [place] [id number] May, [facility] [address] [id number] [address] [place] [address], [place] [id number] May, [facility] [address] [id number] [address] [place] [id number] May, [facility] [address] [id number] [address] [place] [address], [place] [id number] Apr, [facility] [address] [id number] [address] [place] [address], [place] [id number] Apr, [facility] [address] [id number] [address] [place] [address], [place] [id number] March, [facility] [address] [id number] [address] [place] [address], [place] [id number] March, [facility] [address] [id number] [address] [place] [address], [place] [id number] March, [facility] [address] [id number] [address] [place] [address], [place] [id number] March, [facility] [address] [id number] [address] [place] [address], [place] [id number] March, [facility] [address] [id number] [address] [place] [address], [place] [id number] March, [facility] [address] [id number] [address] [place] [address], [place] [id number] 30 Feb, 2012 [facility] [address] [id number] [address] [place] [address], [place] [id number] Feb, [facility] [address] [id number] [address] [place] [address], [place] [id number] Feb, [facility] [address] [id number] [address] [place] [address], [place] [id number] Feb, [facility] [address] [id number] [address] [place] [address], [place] [id number] 23 Feb, 2012 [facility] [address] [id number] [address] [place] [address], [place] [id number] 19 Feb, 2012 [facility] [address] [id number] [address] [place] [address], [place] [id number] 10 Feb, 2012 [facility] [address] [id number] [facility] [id number] 09 Feb, 2012 [facility] [address] [id number] [facility] [id number] 04 Feb, 2012 [facility] [address] [id number] [facility] [id number] 30 Jan, 2012 [facility] [address] [id number] [facility] [id number] 27 Jan, 2012 [facility] [address] [id number] [facility] [id number] 26 Jan, 2012 [facility] [address] [id number] [address] [place] [address], [place] [id number] 22 Jan, 2012 [facility] [address] [id number] [address] [place] [address], [place] [id number] Jan, [facility] [address] [id number] [address] [place] [address], [place] [id number] 20 Jan, 2012 [facility] [address] [id number] [address] [place] [address], [place] [id number] 14 Jan, 2012 [facility] [address] [id number] [address] [place] [address], [place] [id number] Jan, [facility] [address] [id number] [address] [place] [address], [place] [id number] Jan, [facility] [address] [id number] [address] [place] [address], [place] [id number] 08 Jan, 2012 [facility] [address] [id number] [address] [place] [address], [place] [id number] 07 Jan, 2012 [facility] [address] [id number] [address] [place] [address], [place] [id number] 06 Jan, 2012 [facility] [address] [id number] [address] [place] [address], [place] [id number] 02 Jan, 2012 [facility] [address] [id number] [address] [place] [address], [place] [id number] Jan, [facility] [address] [id number] [address] [place] [address], [place] [id number] Dec, [facility] [address] [id number] [address] [place] [address], [place] [id number] Dec, [facility] [address] [id number] [address] [place] [address], [place] [id number] Dec, [facility] [address] [id number] [address] [place] [address], [place] [id number] Dec, [facility] [address] [id number] [address] [place] [address], [place] [id number] 16 Dec, 2011 [facility] [address] [id number] [address] [place] [address], [place] [id number] 08 Dec, 2011 [facility] [address] [id number] [address] [place] [address], [place] [id number] 08 Dec, 2011 [facility] [address] [id number] [address] [place] [address], [place] [id number] 07 Dec, 2011 [facility] [address] [id number] [address] [place] [address], [place] [id number] 07 Dec, 2011 [facility] [address] [id number] [address] [place] [address], [place] [id number] Nov, [facility] [address] [id number] [address] [place] [address], [place] [id number] Nov, [facility] [address] [id number] [address] [place] [address], [place] [id number] Nov, [facility] [address] [id number] [address] [place] [address], [place] [id number] Nov, [facility] [address] [id number] [address] [place] [address], [place] [id number] Oct, [facility] [address] [id number] [address] [place] [address], [place] [id number] Oct, [facility] [address] [id number] [address] [place] [address], [place] [id number] Oct, [facility] [address] [id number] [address] [place] [address], [place] [id number] Oct, [facility] [address] [id number] [address] [place] [address], [place] [id number] Oct, [facility] [address] [id number] [address] [place] [address], [place] [id number] Oct, [facility] [address] [id number] [address] [place] [address], [place] [id number] Oct, [facility] [address] [id number] [address] [place] [address], [place] [id number] Sep, [facility] [address] [id number] [address] [place] [address], [place] [id number] Sep, [facility] [address] [id number] [address] [place] [address], [place] [id number] Sep, [facility] [address] [id number] [address] [place] [address], [place] [id number] Sep, [facility] [address] [id number] [address] [place] [address], [place] [id number] Sep, [facility] [address] [id number] [address] [place] [address], [place] [id number] Sep, [facility] [address] [id number] [address] [place] [address], [place] [id number] Sep, [facility] [address] [id number] [address] [place] [address], [place] [id number] Sep, [facility] [address] [id number] [address] [place] [address], [place] [id number] Sep, [facility] [address] [id number] [address] [place] [address], [place] [id number] Aug, [facility] [address] [id number] [address] [place] [address], [place] [id number] Aug, [facility] [address] [id number] [address] [place] [address], [place] [id number] Aug, [facility] [address] [id number] [address] [place] [address], [place] [id number] May, [facility] [address] [id number] [address] [place] [address], [place] [id number] Nov, [facility] [address] [id number] [address] [place] [address], [place] [id number] Oct, [facility] [address] [id number] [address] [place] [address], [place] [id number] Oct, [facility] [address] [id number] [address] [place] [address], [place] [id number] Oct, [facility] [address] [id number] [address] [place] [address], [place] [id number] Oct, [facility] [address] [id number] [address] [place] [address], [place] [id number] Oct, [facility] [address] [id number] [address] [place] [address], [place] [id number] Sep, [facility] [address] [id number] [address] [place] [address], [place] [id number] Sep, [facility] [address] [id number] [address] [place] [address], [place] [id number] 14 Jul, 2010 [facility] [address] [id number] [address] [place] [id number] Oct, [facility] [address] [id number] [address] [place] [address], [place] [id number] Oct, [facility] [address] [id number] [address] [place] [address], [place] [id number] 04 Oct, 2009 [facility] [address] [id number] [address] [place] [address], [place] [id number] Oct, [facility] [address] [id number] [address] [place] [id number] Sep, [facility] [address] [id number] [address] [place] [id number] Sep, [facility] [address] [id number] [address] [place] [id number] Sep, [facility] [address] [facility] [id number] [address] [place] [id number] Sep, [facility] [address] [facility] [id number] [address] [place] [phone] Sep, [facility] [address] [facility] [id number] [address] [place] [id number] Jul, [facility] [address] [facility] [id number] [address] [place] [phone] Apr, [facility] [address] [facility] [id number] [address] [place] [id number] Dec, IMMUNIZATIONS No Known Immunizations SOCIAL HISTORY [...] foot amputation 08/20/18 Hospitalization History UTI 11/26/18 Hospitalization History pneumonia, infection , anxiety 06/18 19
--- OUTSIDE RECORDS SUMMARY | 2019-11-26 21:31 | XMS REPORT | Encounter Summary ---
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 Name Role Phone Osvaldo Palafox DO Unavailable Hermila Durbin MD Unavailable Unavailable Rishi Cartwright MD Unavailable Donell Haque PA-C Unavailable Lizet Parsons RN Unavailable Unavailable Kristofer Dowling MD Unavailable Unavailable Harvinder Jj MD PCP Slade Merino DO 4 Reason for Visit * Reason Comments Urinary Frequency Urinary Incontinence Encounter Details Care Team Description Date Type Department Rishi Cartwright MD [address] [facility] [address] [place] [address] Acute cystitis without hematuria (Primar y Dx); Urge incontinence; Urinary urgency; Urinary frequency 06/03/2019 Office Visit [facility] [address] [place] [address] [place] [address] Social History Date Tobacco Use [...] instru ctions. Thank you for choosing the [facility] Department of Urology for your health care [...] a 54 y.o. female w/ PMH of [place], [place], and mixed urinary and str ess incontinence who presents for worsening of voiding dysfunction following derek botulinum treatment in 01/2019. History of Present Illness Xni Fonseca is a 54 y.o. female w/ PMH of [place], [place], and mixed urinary and str ess [...] by Hermila Durbin MD at [facility] [place] CYSTOURETHROSCOPY INJ CHEMODENERVATION BLADDER N/A 09/16/2016 CYSTOSCOPY BOTOX INJECTIONS (200 UNITS) performed by Hermila Durbin MD at [facility] ABDOMINAL AORTIC ANEURYSM REPAIR, OPEN 2017 [place] CYSTOURETHROSCOPY INJ CHEMODENERVATION BLADDER N/A 03/17/2017 CYSTOSCOPY [...] a 54 y.o. female w/ PMH of [place], [place], and mixed urinary and st ress [...] Mckeon LPN - 06/03/2019 1:30 PM CDT PVR= 26ml * Rishi Cartwright MD - 06/03/2019 1:30 PM CDT documented in this encounter Plan of Treatment Not on filedocumented as of this encounter Procedures Comments Procedure Name Priority Date/Time Associated Diag nosis CULTURE-URINE Routine 06/03/2019 Acute cystitis without W/SENSITIVITY 1:50 PM CDT hematuria POC URINE DIPSTICK MANUAL Routine 06/03/2019 Acut e cystitis without READ hematuria documented in this [...] coli, esbl positive Performing Organization Address City/State/Zipcode Ph one Number MAIN LAB [address] [place] [address] * POC URINE DIPSTICK MANUAL READ (06/03/2019) Urine Glucose neg IN CLINIC POC Urine Bilirubin neg IN CLINIC POC Urine Ketone neg IN CLINIC POC Urine Specific 1.005 IN CLINIC [place] POC Urine Blood POC neg IN CLINIC Urine PH POC 7.5 IN CLINIC Urine Protein neg IN [facility]INIC POC Urine 0.2 IN CLINIC Urobilinogen POC Urine Nitrite positive IN [facility]INIC POC Urine moderate IN CLINIC Leukocytes POC Color,UA yellow IN CLINIC Turbidity,UA clear IN CLINIC Specimen Urine - Urine Performing Organization Address City/State/Zipcode Ph one Number IN CLINIC documented in this encounter Visit Diagnoses Diagnosis Acute cystitis without hematuria - Prim nehemiah Acute cystitis Urge incontinence Urinary urgency Urgency of urination Urinary frequency documented in this encounter Additional Health Concerns Resolved Time Infection Noted Time ESBL 02/15/2015 9:40 AM CDT documented as of this encounter
--- OUTSIDE RECORDS SUMMARY | 2019-11-26 21:31 | XMS REPORT | Encounter Summary ---
Author Author [facility] Organization [facility] Address Unknown Phone Unavailable Care Team Providers Care Operations Business Partner Name Role Phone Osvaldo Palafox DO Unavailable Hermila Durbin MD Unavailable Unavailable Rishi Cartwright MD Unavailable Donell Haque PA-C Unavailable Lizet Parsons RN Unavailable Unavailable Kristofer Dowling MD Unavailable Unavailable Harvinder Jj MD PCP Slade Merino DO 4 Reason for Visit * Reason Comments Medication Follow-up Encounter Details Care Team Description Date Type Department Rishi Cartwright MD [address] [facility] [address] [place] [address] Medication Follow-up 06/09/2019 Telephone [facility] [address] Pod A [place], [place] [...]
--- OUTSIDE RECORDS SUMMARY | 2019-11-26 21:31 | XMS REPORT | Encounter Summary ---
Author Author [facility] Organization [facility] Address Unknown Phone Unavailable Care Team Providers Care Food Service Utility Worker Name Role Phone AnaliaOsvaldo echols DO Unavailable Hermila Durbin MD Unavailable Unavailable Rishi Cartwright MD Unavailable Donell Haque PA-C Unavailable Lizet Parsons RN Unavailable Unavailable Kristofer Dowling MD Unavailable Unavailable Harvinder Jj MD PCP Slade Merino DO 4 Reason for Visit * Reason Comments Scheduling Encounter Details Care Team Description Date Type Department Rishi Cartwright MD [address] [facility] [address] [place] [address] Scheduling 07/12/2019 Telephone [facility] [address] [place] [address] Social History Date Tobacco Use [...] * Telephone Encounter - Charlene Riggins - 07/12/2019 3:05 PM CDT Called and tried to schedule the Pt again for the VUDS and Cysto with dr. valeria mari . Pt said right now is not a good time that she has my number and will call me when she is ready . ----- Message from Rishi Cartwright MD sent at 06/09/2019 12:25 PM CDT ----- Marcel Yeh - Could you please help with the request regarding VUDS? Not sure how that is or dered in the system RYANN Real ----- Message ----- From: Charlene Riggins Sent: 06/09/2019 11:10 AM To: Rishi Cartwright MD Called pt to set up a VUDS and Cysto . I need orders for the VUDS please and murray nk you documented in this encounter Plan of Treatment Not on filedocumented as of this encounter Visit Diagnoses Not on filedocumented in this encounter Additional Health Concerns Resolved Time Infection Noted Time ESBL 02/15/2015 9:40 AM CDT documented as of this encounter
--- OUTSIDE RECORDS SUMMARY | 2019-11-26 21:31 | XMS REPORT | Encounter Summary ---
Author Author [facility] Organization [facility] Address Unknown Phone Unavailable Care Team Providers Care Mold Burner Name Role Phone AnaliaOsvaldo echols DO Unavailable Hermila Durbin MD Unavailable Unavailable Rishi Cartwright MD Unavailable Donell Haque PA-C Unavailable Lizet Parsons RN Unavailable Unavailable Kristofer Dowling MD Unavailable Unavailable Harvinder Jj MD PCP Slade Merino DO 4 Reason for Visit * Reason Comments Scheduling Encounter Details Care Team Description Date Type Department Rishi Cartwright MD [address] [facility] [address] [place] [address] Scheduling 07/05/2019 Telephone [facility] [address] [place] [address] Social History Date Tobacco Use [...] * Telephone Encounter - Charlene Riggins - 07/05/2019 10:47 AM CDT Called Pt to set up a VUDS and cysto with Dr. Cartwright . Pt let me know that ri ght now is not a good time for her and that she would need to call me back . I c onfirmed that Pt had my call back number. documented in this encounter Plan of Treatment Not on filedocumented as of this encounter Visit Diagnoses Not on filedocumented in this encounter Additional Health Concerns Resolved Time Infection Noted Time ESBL 02/15/2015 9:40 AM CDT documented as of this encounter
--- OUTSIDE RECORDS SUMMARY | 2019-11-26 21:31 | XMS REPORT | Encounter Summary ---
Author Author [facility] Organization [facility] Address Unknown Phone Unavailable Care Team Providers Care Cake Puncher Name Role Phone Osvaldo Palafox DO Unavailable Hermila Durbin MD Unavailable Unavailable Rishi Cartwright MD Unavailable Donell Haque PA-C Unavailable Lizet Parsons RN Unavailable Unavailable Kristofer Dolwing MD Unavailable Unavailable Harvinder Jj MD PCP Slade Merino DO 4 Encounter Details Care Team Description Date Type Department Rishi Cartwright MD [address] [facility] [address] [place] [address] 07/26/2019 Documentation [facility] [address] [place] [address] Social History Date Tobacco Use [...] as of this encounter Progress Notes * Ene Granados RN - 07/26/2019 5:52 PM CDT Received fax approval from [employer] that Biopharmacy request had been ap proved for procedure code [id number] for 2 visits from 08/12/19 to 02/10/20 documented in this encounter Plan of Treatment Not on filedocumented as of this encounter Visit Diagnoses Not on filedocumented in this encounter Additional Health Concerns Resolved Time Infection Noted Time ES[facility] 02/15/2015 9:40 AM CDT documented as of this encounter
--- OUTSIDE RECORDS SUMMARY | 2019-11-26 21:31 | XMS REPORT | Clinical Summary ---
Author Author [facility] Organization [facility] Address Unknown Phone Unavailable Care Team Providers Care Director Of Clinical Trials Name Role Phone Analiaonesimo Osvaldo DO Unavailable Hermila Durbin MD Unavailable Unavailable Rishi Cartwright MD Unavailable Donell Haque PA-C Unavailable Lizet Parsons RN Unavailable Unavailable Kristofer Dowling MD Unavailable Unavailable Harvinder Jj MD PCP Slade Merino DO 4 Source Comments Some departments are not documenting in the electronic medical record. If you d o not see the information that you expected, contact Release of Information in [facility] [employer] department at [phone] for further assistan ce in locating additional records.[facility] Allergies Comments Active Allergy Reactions [...] 5 mg Take 5 mg by 0 08/0 tablet mouth daily. 8 Active cyclobenzaprine Take 10 mg by 0 (FLEXERIL) 10 mg tablet mouth daily. [address] Take 40 mg by 0 (PROTONIX) 40 mg tablet mouth daily. Active aspirin EC 81 mg tablet Take 81 mg by 0 mouth daily. Take with food. Active fluoxetine(+) (PROZAC) 40 Take 40 mg by 0 /2 /201 mg capsule mouth daily. 8 Active fluticasone (FLONASE) 50 Apply 1 spray 0 05/12 mcg/actuation nasal spray to each 8 nostril [...] tiotropium (SPIRIVA WITH Place 18 mcg 0 04/08 HANDIHALER) 18 mcg into inhaler 8 capsule for inhaler and inhale into lungs as directed daily as needed. Active traZODone (DESYREL) 100 Take 100 mg 0 mg tablet by mouth at 8 bedtime daily. Active atorvastatin (LIPITOR) 40 Take 40 mg by 0 mg tablet mouth daily. Active cetirizine (ZYRTEC) 10 mg Take 10 mg by 0 tablet mouth daily. Active docusate (COLACE) 100 mg Take one 180 capsule 3 0 capsule capsule by 8 mouth twice daily. [...] 9 mouth twice daily before meals. Active mirabegron(+) ER Take one 30 tablet 3 (MYRBETRIQ ER) 25 mg tablet by 9 tablet mouth daily. Active fesoterodine ER(+) Take one 90 tablet 3 01 (TOVIAZ) 8 mg tablet tablet by 9 mouth daily. Do not cut/ crush/ chew Active gabapentin (NEURONTIN) Take two 90 tablet 6 600 mg tablet tablets by 9 mouth twice daily. 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 Durbin - referral to Dr. Carlton in Social Insurance Administrator for va ginal pain Gross hematuria 10/24/2015 Overview: Gross hematuria in setting of smoking h istory 09/28/15: CT abd/pel w/ diffuse mural t hickening of distal right ureter 10/05/15: right URS w/ biopsy, cytology, and right ureteral stent placement. Intraoperative findings: diffuse inflam mation of the distal right ureter; cytology: acute inflammation but no mal ignant cells; biopsy: tissue not adequate for diagnosis. Last Assessment & Plan: Gross hematuria remains intermittently present. There was no evidence of a malignant etiology on evaluation. Will continue to monitor. - Repeat CT Urogram 6 months. Recurrent UTI 07/19/2014 Last Assessment & Plan: Continue Bactrim SS. F/u w/ Dr. Cartwright. Mixed urge and stress incontinence (TRI ) Overview: TRI (KATIA > UUI) refractory to a pubovag inal sling x 2 in 10/22/2013 and 01/28/2012 and macroplastique in 2012, mirabegron and anticholinergics. 1 ppd, poorly controlled DMII, obesity. UDS (08/30/2014): small capacity; compl ete emptying; +DO with leak. Cysto (08/30/14): unremarkable. Botox 200U (09/15/2014, 03/06/2015): no improvement; non-compliant with reduction of fluids and caffeine; brandie nues drinking excessive amount of soda and coffee. Botox 250u (09/04/2015): slight improve ment yet continued non-compliance. Botox 200u (03/04/2016). 200U Botox injection (03/17/17). Decreas ed pad usage to 2-3 per day. 12/31/18: Pad usage back up to 8 per day. L ast Assessment & Plan: 53 year old female with PMH of mixed in continence managed with botox and oxybutynin 10mg XL with return of sympt oms Plan: - Schedule for botox 02/08/19 200U [...] Encounters Care Team Description Date Type Specialty Slade Prasad MD 09/28/2019 Refill [facility] from Last 3 Months Immunizations Name Administration Dates Next Due Flu Vaccine =>6 Months 08/21/2018 Quadrivalent PF Pneumococcal Vaccine 08/21/2018 [...] AM CDT Temperature 16 10/24/2015 3:18 PM [employer]ER Respiratory Rate 95% 03/11/2019 8:33 AM CDT Oxygen Saturation - - Inhaled Oxygen Concentration 82.6 kg (182 lb) 06/03/2019 1:10 PM CDT Weight 170.2 cm (5' 7") 06/03/2019 1:10 PM CDT Height 28.51 06/03/2019 1:10 PM CDT Body Mass Index Plan of Treatment Health Maintenance Due Date Last Done Comments HEPATITIS C SCREENING 1964 DTAP/TDAP VACCINES (1 - 1975 Tdap) HIV SCREENING 1979 PHYSICAL (COMPREHENSIVE) 1982 EXAM CERVICAL CANCER SCREENING 1994 BREAST CANCER SCREENING 2004 COLORECTAL CANCER 2014 SCREENING SHINGLES RECOMBINANT 2014 VACCINE (1 of 2) INFLUENZA VACCINE 06/30/2019 08/21/2018 Implants Device Identifier Shelf Expiration Date Model / Serial / L ot Implanted Type Area Manufactur er Right Ankle Plate Results Not on filefrom Last 3 Months Additional Health Concerns Resolved Time Infection Noted Time ESBL 02/15/2015 9:40 AM CDT Insurance Type Payer Benefit Subscriber ID Effective Phone Address Plan / Dates Group Medicaid [place] [employer] xxxxxxxxxxx [id number] [facility] Advance Directives Patient Can Reforming Machine Operator Explanation Type Date Recorded Advance 09/08/2014 3:19 PM Directive/DPOA Advance Directive/DPOA Date Inactivated Comments Code Status Date Activated 10/16/2018 7:44 PM Full Code 10/15/2018 8:12 PM Provider has discussed Code Status No, discussion no t w/Patient or Family? necessary based on Dx 08/25/2018 8:04 PM Full Code 08/20/2018 10:12 AM Provider has discussed Code Status No, discussion no t w/Patient or Family? necessary based on Dx
--- OUTSIDE RECORDS SUMMARY | 2019-11-26 21:31 | XMS REPORT | Encounter Summary ---
Author Author [facility] Organization [facility] Address Unknown Phone Unavailable Care Team Providers Care Winding Machine Operator Name Role Phone Osvaldo Palafox DO Unavailable Hermila Durbin MD Unavailable Unavailable Rishi Cartwright MD Unavailable Donell Haque PA-C Unavailable Lizet Parsons RN Unavailable Unavailable Kristofer Dowling MD Unavailable Unavailable Harvinder Jj MD PCP Slade Merino DO 4 Reason for Referral * Radiology Services (Routine) Referred By Contact Referred To Contact Status Reason Specialty Diagnoses / Procedures Rishi Cartwright MD [address] [facility] [address] [place] [address] New Request Radiology Diagnoses Urge incontinence Urinary urgency Urinary frequency P rocedures VIDEO URODYAMIC VOIDING IN RAD Encounter Details Care Team Description Date Type Department Rishi Cartwright MD [address] [facility] [address] [place] [address] Urge incontinence (Primary Dx); Urinary urgency; Urinary frequency 06/09/2019 Orders Only [facility] [address] [place] [address] Social History Date Tobacco Use [...] as of this encounter Plan of Treatment Order Schedule Name Type Priority Associated Diag noses Expected: 06/09/2019 (Approximate), Expi res: 06/09/2020 VIDEO URODYAMIC VOIDING Imaging Routine Urge i ncontinence IN RAD Urinary urgency Urinary frequency documented as of this encounter Visit Diagnoses Diagnosis Urge incontinence - Primary Urinary urgency Urgency of urination Urinary frequency documented in this encounter Additional Health Concerns Resolved Time Infection Noted Time ESBL 02/15/2015 9:40 AM CDT documented as of this encounter
--- OUTSIDE RECORDS SUMMARY | 2019-11-26 21:31 | XMS REPORT | Encounter Summary ---
Author Author [facility] Organization [facility] Address Unknown Phone Unavailable Care Team Providers Care Promotional Marketing Analyst Name Role Phone AnaliaOsvaldo echols DO Unavailable Hermila Durbin MD Unavailable Unavailable Rishi Cartwright MD Unavailable Donell Haque PA-C Unavailable Lizet Parsons RN Unavailable Unavailable Kristofer Dowling MD Unavailable Unavailable Harvinder Jj MD PCP Slade Merino DO 4 Reason for Visit * Reason Comments Medication Refill Encounter Details Care Team Description Date Type Department Slade Prasad MD [address] [place] [address] 09/28/2019 Refill [facility] [address] [address] Social History Date Tobacco Use [...]
--- OUTSIDE RECORDS SUMMARY | 2019-11-26 21:31 | XMS REPORT | Encounter Summary ---
Author Author [facility] Organization [facility] Address Unknown Phone Unavailable Care Team Providers Care Hairspring Vibrator Name Role Phone AnaliaOsvaldo echols DO Unavailable Hermila Durbin MD Unavailable Unavailable Rishi Cartwright MD Unavailable Donell Haque PA-C Unavailable Lizet Parsons RN Unavailable Unavailable Kristofer Dowling MD Unavailable Unavailable Harvinder Jj MD PCP Slade Merino DO 4 Reason for Visit * Reason Comments Scheduling Encounter Details Care Team Description Date Type Department Rishi Cartwright MD [address] [facility] [address] [place] [address] Scheduling 07/27/2019 Telephone [facility] [address] [place] [address] Social History Date Tobacco Use [...] * Telephone Encounter - Charlene Riggins - 07/27/2019 4:10 PM CDT Called and spoke with Pt and she stated that she would not be able to make appoi ntments right now since she doesn't have any way to get to them . ----- Message from Rishi Cartwright MD sent at 07/22/2019 11:09 AM CDT ----- Regarding: RE: Pt cancled Surgery I believe we had recommended additional evaluation with Videourodynamics and Cys toscopy for additional testing prior to any additional surgery. It appears from prior notes that she had not yet scheduled for VUDS/cysto Thanks ----- Message ----- From: Charlene Riggins Sent: 07/22/2019 11:02 AM To: Ene Granados RN, Rishi Cartwright MD Subject: Pt cancled Surgery Pt called me today and wanted to let me know that she wanted to cancel her surge ry for 08/12/[address] Cartwright for CYSTOURETHROSCOPY WITH INJECTION FOR JOLIE MODENERVATION OF THE BLADDER (BOTOX 200 UNITS. I asked her is she wanted to reschedule and she stated no. I asked her if she would like to set up an appointment to talk with the And she stated no not at this time. I will be sending a procedure cancellation form down and taking her off your gurjit endar. Thank you DAVIDE documented in this encounter Plan of Treatment Not on filedocumented as of this encounter Visit Diagnoses Not on filedocumented in this encounter Additional Health Concerns Resolved Time Infection Noted Time ESBL 02/15/2015 9:40 AM CDT documented as of this encounter
--- OUTSIDE RECORDS SUMMARY | 2019-11-26 21:31 | XMS REPORT | Encounter Summary ---
Author Author [facility] Organization [facility] Address Unknown Phone Unavailable Care Team Providers Care Clinical Education Manager Name Role Phone Osvaldo Palafox DO Unavailable Hermila Durbin MD Unavailable Unavailable Rishi Cartwright MD Unavailable Donell Haque PA-C Unavailable Lizet Parsons RN Unavailable Unavailable Kristofer Dowling MD Unavailable Unavailable Harvinder Jj MD PCP Slade Merino DO 4 Reason for Visit * Reason Comments Scheduling Encounter Details Care Team Description Date Type Department Rishi Cartwright MD [address] [facility] [address] [place] [address] Scheduling 06/27/2019 Telephone [facility] [address] [place] [address] Social History Date Tobacco Use [...]
--- OUTSIDE RECORDS SUMMARY | 2019-11-26 21:31 | XMS REPORT | Encounter Summary ---
Author Author [facility] Organization [facility] Address Unknown Phone Unavailable Care Team Providers Care Pulp Machine Operator Name Role Phone Osvaldo Palafox DO Unavailable Hermila Durbin MD Unavailable Unavailable Rishi Cartwright MD Unavailable Donell Haque PA-C Unavailable Lizet Parsons RN Unavailable Unavailable Kristofer Dowling MD Unavailable Unavailable Harvinder Jj MD PCP Slade Merino DO 4 Reason for Visit * Reason Comments Scheduling Provider Discussion About Patient Encounter Details Care Team Description Date Type Department Rishi Cartwright MD [address] [facility] [address] [place] [address] Scheduling; Provider Discussion About Jordan chu 07/22/2019 Telephone [facility] [address] [place] [address] Social History Date Tobacco Use [...] * Telephone Encounter - Charlene Riggins - 07/22/2019 11:00 AM CDT Pt called me today and wanted to [...] she stated no not at this time. documented in this encounter Plan of Treatment Not on filedocumented as of this encounter Visit Diagnoses Not on filedocumented in this encounter Additional Health Concerns Resolved Time Infection Noted Time ESBL 02/15/2015 9:40 AM CDT documented as of this encounter
--- OUTSIDE RECORDS SUMMARY | 2019-11-26 21:31 | XMS REPORT | Encounter Summary ---
Author Author [facility] Organization [facility] Address Unknown Phone Unavailable Care Team Providers Care Laborer Electroplating Name Role Phone Osvaldo Palafox DO Unavailable Hermila Durbin MD Unavailable Unavailable Rishi Cartwright MD Unavailable Donell Haque PA-C Unavailable Lizet Parsons RN Unavailable Unavailable Kristofer Dowling MD Unavailable Unavailable Harvinder Jj MD PCP Slade Merino DO 4 Reason for Visit * Reason Comments Results Urine culture Encounter Details Care Team Description Date Type Department Rishi Cartwright MD [address] [facility] [address] [place] [address] Results (Urine culture) 06/06/2019 Telephone [facility] [address] [place] [address] Social History Date Tobacco Use [...]
--- OUTSIDE RECORDS SUMMARY | 2019-11-26 21:32 | XMS REPORT ---
Author Author Xin LEONARD Organization [facility] [place] Address [address] [place] [address] Care Team Providers Care Senior Buyer Name Role Phone ETELVINA LEONARD Unavailable PROBLEMS Type Condition ICD9-CM Code [id number] Code Onset Dates Condition S tatus SNOMED Code Problem Prediabetes R73.03 Active 56836623 2 Problem Essential hypertension I10 Active 28006562 Problem Reactive depression F32.9 Active 30328859 Problem Sinusitis J32.9 Active 36837965 Problem Seasonal allergies J30.2 Active 4 23729357 Problem Lumbago with sciatica, right side M54.41 Active [id number] Problem Lumbago with sciatica, left side M54.42 Active 016041446 Problem Chronic obstructive pulmonary disease, unspecified COPD ty pe J44.9 Active 95407859 Problem Other chronic pain G89.29 Active 8 6465027 Problem DM neuro manif type II E11.49 Active 06706877 Problem Cigarette nicotine dependence without complication F17.210 Active 79946172 Problem Iron deficiency anemia due to chronic blood loss D 50.0 Active 306354022 Problem Seizures R56.9 Active 59863182 Problem Chronic pain G89.29 Active 2772070 1 Problem Adjustment disorder with disturbance of emotion F4 3.29 Active 02035983 Problem Major depressive disorder, recurrent, moderate F33 .1 Active 569381968 Problem Chronic obstructive pulmonar y disease with acute lower respiratory infection J44.0 Active 248092135 Problem Acquired hypothyroidism E03.9 Active 099876240 Problem Chronic obstructive pulmonar y disease with acute lower respiratory infection J44.0 Active 863917419 Problem Mixed hyperlipidemia E78.2 Active 783308367 Problem Gastroesophageal reflux disease, esophagitis pre sence not specified K21.9 Active 805006624 Problem Generalized anxiety disorder F41.1 A ctive 52273094 Problem Urinary incontinence in female R32 Active 271108174 Problem Controlled type 2 diabetes m ellitus without complication, without long- term current use of insulin E11.9 Active 133043308 Problem Primary insomnia F51.01 Active 397 2004 ALLERGIES No Information ENCOUNTERS Encounter Location Date Diagnosis [facility] [place] [address] [facility] [id number] [address] [place] [phone] Aug, [facility] [place] [address] [facility] [id number] [address] [place] [id number] Aug, [facility] [place] [address] [facility] [id number] [address] [place] [phone] Aug, [facility] [place] [address] [facility] [id number] [address] [place] [id number] Jul, [facility] [place] [address] [facility] [id number] [address] [place] [address] Jul, [facility] [place] [address] [facility] [id number] [address] [place] [address] Jul, [facility] [place] [address] [facility] [id number] [address] [place] [id number] 16 Jul, 2019 [facility] [address] [facility] [id number] [address] [place] [address] Jul, Respiratory difficulty R06.0 3 and Chronic obstructive pulmonary disease with acute lower respiratory infection J44.0 [facility] [place] [address] [facility] [id number] [address] [place] [address] Jul, [facility] [place] [address] [facility] [id number] [address] [place] [address] Jul, [facility] [place] [address] [facility] [id number] [address] [place] [address] Jul, [facility] [place] [address] [place] [id number] [address] [place] [id number] 05 Jul, 2019 Major depressive disorder, r ecurrent, moderate F33.1 ; Generalized anxiety disorder F41.1 and Primary insomnia F51.01 [facility] [place] [address] [facility] [id number] [address] [place] [id number] Jul, [place] [id number] [facility] [id number] [address] [place] [address] Jul, Primary insomnia F51.01 [place] [address] [facility] [id number] [address] [place] [id number] Jul, Major depressive disorder, r ecurrent, moderate F33.1 ; Generalized anxiety disorder F41.1 and Primary insomnia F51.01 [place] [address] [facility] [id number] [address] [place] [address] Jul, Chronic obstructive pulmonar y disease, unspecified COPD type J44.9 ; Controlled type 2 diabetes mellitus without complication, without long-term current use of insulin E11.9 ; Lumbago with sciatica, left side M54.42 and Other chronic pain G89.29 [place] [address] [place] [id number] [place] [address] Jun, [place] [address] [place] [id number] [place] [address] Jun, Major depressive disorder, r ecurrent, moderate F33.1 and Generalized anxiety disorder F41.1 [place] [address] [address] May, [place] [address] [place] [id number] [address] [place] [phone] May, Encounter for immunization Z 23 [facility] [address] [facility] [id number] [address] [place] [address] May, UTI (urinary tract infection ) N39.0 and Urinary incontinence in female R32 [place] [address] [facility] [id number] [address] [place] [address] May, Major depressive disorder, r ecurrent, moderate F33.1 and Generalized anxiety disorder F41.1 [facility] [address] [facility] [id number] [address] [place] [address] May, Bronchitis J40 [place] [address] [place] [id number] [address] [place] [address] May, Major depressive disorder, r ecurrent, moderate F33.1 and Adjustment disorder with disturbance of emotion F43.29 [place] [address] [address] [facility] [id number] [address] [place] [address] Apr, [place] [address] [place] [id number] [place] [phone] 18 Apr, 2019 Type 2 diabetes mellitus wit h hyperglycemia E11.65 [place] [address] [facility] [id number] [place] [phone] 17 Apr, 2019 Type 2 diabetes mellitus wit h hyperglycemia E11.65 [place] [address] [address] Apr, Major depressive disorder, r ecurrent, moderate F33.1 and Adjustment disorder with disturbance of emotion F43.29 [place] [address] [address] Apr, [place] [address] [address] Apr, Diarrhea, unspecified type R 19.7 [place] [address] [address] Apr, Low back pain M54.5 ; Other chronic pain G89.29 and Anemia, unspecified type D64.9 [place] [address] [place] [id number] [address] [place] [address] Apr, [place] [address] [place] [id number] [address] [place] [address] Apr, Diarrhea, unspecified type R 19.7 and Lumbar radiculopathy, chronic M54.16 [facility] [address] [place] [id number] [address] [place] [address] March, Non-intractable vomiting wit h nausea, unspecified vomiting type R11.2 and Muscle cramps R25.2 [place] [address] [place] [id number] [address] [place] [id number] March, [facility] [place] [address] [facility] [id number] [address] [place] [id number] March, Other chronic pain G89.29 [facility] [place] [address] [facility] [id number] [address] [place] [address] March, Type 2 diabetes mellitus wit h hyperglycemia E11.65 ; Flank pain R10.9 ; Acute cystitis without hematuria N30.00 ; Chronic obstructive pulmonary disease, unspecified COPD type J44.9 and Moderate episode of recurrent major depressive disorder F33.1 [facility] [place] [address] [address] March, [facility] [address] [place] [id number] [address] [place] [address] March, Wheezing R06.2 and Viral upp er respiratory tract infection J06.9 [facility] [place] [address] [place] [id number] [address] [place] [phone] Feb, [facility] [place] [address] [place] [id number] [address] [place] [id number] Feb, [facility] [place] [address] [place] [id number] [address] [place] [id number] Jan, [facility] [address] [place] [id number] [address] [place] [address] Jan, Acute cystitis with hematuri a N30.01 and Dysuria R30.0 [facility] [place] [address] [facility] [id number] [address] [place] [id number] Jan, [facility] [place] [address] [place] [id number] [address] [place] [phone] Dec, [facility] [place] [address] [place] [id number] [address] [place] [id number] Dec, [facility] [place] [address] [place] [id number] [address] [place] [id number] Dec, [facility] [place] [address] [id number] [address] [place] [id number] Dec, [facility] [place] [address] [id number] [address] [place] [address] Dec, Routine adult health [facility] lizettee Z00.00 ; Chronic obstructive pulmonary disease, unspecified COPD type J44.9 and Encounter for immunization Z23 [facility] [place] [address] [id number] [address] [place] [address] Nov, [facility] [place] [address] [id number] [address] [place] [address] Nov, UTI (urinary tract infection ) N39.0 and Other chronic pain G89.29 [facility] [place] [address] [id number] [address] [place] [address] Nov, [facility] [place] [address] [id number] [address] [place] [id number] Nov, [facility] [place] [address] [id number] [address] [place] [id number] Nov, Painful urination R30.9 and UTI (urinary tract infection) N39.0 [facility] [place] [address] [id number] [address] [place] [phone] Nov, [facility] [place] [address] [id number] [address] [place] [phone] Nov, UTI (urinary tract infection ) N39.0 [facility] [place] [address] [id number] [address] [place] [address] Nov, Dysuria R30.0 ; UTI (urinary tract infection) N39.0 and Chronic pain G89.29 [facility] [place] [address] [id number] [address] [place] [phone] Nov, [facility] [place] [address] [id number] [address] [place] [address] Oct, Cough R05 [place] [address] [facility] [id number] [address] [place] [phone] 14 Oct, 2018 Sinusitis J32.9 [place] [address] [address] [facility] [id number] [address] [place] [address] Oct, [place] [address] [facility] [id number] [address] [place] [id number] Oct, UTI (urinary tract infection ) N39.0 and URI (upper respiratory infection) J06.9 [place] [address] [facility] [id number] [address] [place] [address] Sep, Pain in thoracic spine M54.6 [place] [address] [address] [facility] [id number] [address] [place] [address] Sep, Type 2 diabetes mellitus wit h hyperglycemia E11.65 [place] [address] [place] [id number] [place] [address] Sep, Chronic obstructive pulmonar y disease, unspecified COPD type J44.9 ; Abrasion of right ear canal, initial encounter S00.411A ; Cigarette nicotine dependence without complication F17.210 ; Right leg pain M79.604 and Seasonal allergies J30.2 [place] [address] [address] [facility] [id number] [address] [place] [address] Aug, [place] [address] [facility] [id number] [address] [place] [address] Aug, [place] [address] [facility] [id number] [address] [place] [address] Aug, Pain in thoracic spine M54.6 [place] [address] [facility] [id number] [address] [place] [address] Aug, [place] [address] [facility] [id number] [address] [place] [phone] Aug, Chronic obstructive pulmonar y disease, unspecified COPD type J44.9 ; Complete amputation of right foot, 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 ; Cigarette nicotine dependence without complication F17.210 and BMI 40.0-44.9, adult Z68.41 [place] [id number] [facility] [id number] [address] [place] [address] Jul, [place] [address] [facility] [id number] [address] [place] [address] Jul, [place] [address] [place] [id number] [place] [phone] Jul, Onychomycosis B35.1 ; 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 and DM neuro manif type II E11.49 [place] [address] [address] [facility] [id number] [address] [place] [id number] Jun, Pain in thoracic spine M54.6 [place] [address] [place] [id number] [address] [place] [address] Jun, Iron deficiency anemia due t o chronic blood loss D50.0 and Hematochezia K92.1 [place] [address] [place] [id number] [address] [place] [address] Jun, Gastroenteritis K52.9 and Ab normal RBC indices R71.8 [place] [address] [place] [id number] [address] [place] [address] Jun, [place] [address] [place] [id number] [address] [place] [phone] Jun, Chest congestion R09.89 and Seizures R56.9 [place] [address] [facility] [id number] [address] [place] [address] May, Pain in thoracic spine M54.6 [place] [address] [facility] [id number] [address] [place] [address] May, [place] [address] [place] [id number] [address] [place] [address] May, [place] [address] [place] [id number] [address] [place] [address] May, [place] [address] [place] [id number] [address] [place] [address] May, Acute non-recurrent frontal sinusitis J01.10 and Dermatitis L30.9 [facility] [place] [address] [id number] [address] [place] [address] May, [facility] [place] [address] [id number] [address] [place] [address] May, Pain in thoracic spine M54.6 [facility] [place] [address] [id number] [address] [place] [address] May, [facility] [place] [address] [id number] [address] [place] [address] May, Acute nasopharyngitis J00 [facility] [place] [address] [id number] [address] [place] [address] May, [facility] [place] [address] [id number] [address] [place] [address] May, [facility] [place] [address] [id number] [address] [place] [address] Apr, [facility] [place] [address] [id number] [address] [place] [id number] Apr, [facility] [place] [address] [id number] [address] [place] [phone] Apr, [facility] [place] [address] [id number] [address] [place] [phone] Apr, [facility] [place] [address] [id number] [address] [place] [address] Apr, Pain in right ankle and join ts of right foot M25.571 [facility] [place] [address] [id number] [address] [place] [address] Apr, [facility] [place] [address] [id number] [address] [place] [address] Apr, Bronchitis J40 ; Pain in rig ht ankle and joints of right foot M25.571 ; Other chronic pain G89.29 ; Prediabetes R73.03 ; Chronic obstructive pulmonary disease, unspecified COPD type J44.9 and Cigarette nicotine dependence without complication F17.210 [facility] [address] [facility] [id number] [address] [place] [id number] 13 Apr, 2018 Seasonal allergic rhinitis, unspecified trigger J30.2 [facility] [place] [address] [place] [id number] [address] [place] [address] 08 Apr, 2018 Onychomycosis B35.1 ; 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 and DM neuro manif type II E11.49 [place] [address] [address] Apr, Reactive depression F32.9 ; Thoracic myofascial strain, initial encounter S29.019A and Leg cramps R25.2 [place] [address] [address] March, [place] [id number] [place] [id number] [address] [place] [address] March, Type 2 diabetes mellitus wit h hyperglycemia E11.65 [place] [address] [address] March, Reactive depression F32.9 [place] [address] [address] March, Pain in thoracic spine M54.6 and Other chronic pain G89.29 [facility] [place] [address] [place] [id number] [address] [place] [address] Feb, [place] [address] [address] Jan, Reactive depression F32.9 ; Essential hypertension I10 ; Gastroesophageal reflux disease, esophagitis presence not specified K21.9 ; Lumbago with sciatica, left side M54.42 and Lumbago with sciatica, right side M54.41 [place] [address] [address] Jan, Reactive depression F32.9 an d Pharyngoesophageal dysphagia R13.14 [place] [address] [address] Jan, [place] [address] [address] Jan, Encounter for immunization Z 23 [place] [address] [address] Jan, Onychomycosis B35.1 and DM n euro manif type II E11.49 [place] [address] [address] Jan, [place] [address] [address] Jan, Prediabetes R73.03 [place] [address] [address] Dec, [place] [address] [address] Dec, Essential hypertension I10 ; Mixed hyperlipidemia E78.2 ; Acquired hypothyroidism E03.9 ; Reactive depression F32.9 and Prediabetes R73.03 [place] [address] [address] Dec, [place] [address] [address] Dec, [place] [address] [address] Dec, DM neuro manif type II E11.4 9 [facility] [address] [phone] 08 Dec, 2017 Bruise T14.8XXA ; Type 2 sade betes mellitus with hyperglycemia E11.65 and 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 [facility] [place] [address] [id number] [address] [place] [phone] Oct, [facility] [place] [address] [id number] [address] [place] [address] March, Onychomycosis B35.1 and DM n euro manif type II E11.49 [facility] [place] [address] [id number] [address] [place] [address] Jun, [facility] [place] [address] [id number] [address] [place] [phone] Jun, [facility] [place] [address] [id number] [address] [place] [address] Jun, COPD with acute exacerbation 491.21 [facility] [place], [facility] [address] [id number] [address] [place] [phone] Apr, [facility] [place], [facility] [address] [id number] [address] [place] [phone] Feb, [facility] [place], [facility] [address] [id number] [address] [place] [phone] Feb, [facility] [place], [facility] [address] [id number] [address] [place] [phone] Jan, [facility] [place], [facility] [address] [id number] [address] [place] [phone] Jan, [facility] [place], [facility] [address] [id number] [address] [place] [phone] Jan, [facility] [place], [facility] [address] [id number] [address] [place] [phone] Jan, [facility] [place], [facility] [address] [id number] [address] [place] [phone] Jan, [facility] [place], [facility] [address] [id number] [address] [place] [phone] Jan, [facility] [place], [facility] [address] [id number] [address] [place] [phone] Jan, 2014 [facility] [address] [id number] [address] [place] [id number] 23 Jan, 2014 [facility] [address] [id number] [facility] [place] [id number] 23 Jan, 2014 [facility] [address] [id number] [address] [place] [address], [place] [id number] 19 Jan, 2014 [facility] [address] [id number] [place] [address], [place] [address] 19 Jan, 2014 [facility] [address] [id number] [address] [place] [address], [place] [address] 18 Jan, 2014 [facility] [address] [id number] [address] [place] [address], [place] [address] 18 Jan, 2014 [facility] [address] [id number] [address] [place] [address], [place] [address] 16 Jan, 2014 [facility] [address] [id number] [address] [place] [address], [place] [address] 16 Jan, 2014 [facility] [address] [id number] [address] [place] [address], [place] [address] 16 Jan, 2014 [facility] [address] [id number] [address] [place] [address], [place] [address] 16 Jan, 2014 [facility] [address] [id number] [address] [place] [address], [place] [address] 15 Jan, 2014 [facility] [address] [id number] [address] [place] [address], [place] [address] 13 Jan, 2014 [facility] [address] [id number] [address] [place] [address], [place] [address] 13 Jan, 2014 [facility] [address] [id number] [address] [place] [address], [place] [address] 13 Jan, 2014 [facility] [address] [id number] [address] [place] [address], [place] [address] 13 Jan, 2014 [facility] [address] [id number] [address] [place] [address], [place] [address] Jan, [facility] [address] [id number] [address] [place] [address], [place] [address] Jan, [facility] [address] [id number] [address] [place] [address], [place] [address] Jan, [facility] [address] [id number] [address] [place] [address], [place] [address] Dec, 2014 [facility] [address] [id number] [address] [place] [address], [place] [address] Dec, 2014 [facility] [address] [id number] [address] [place] [address], [place] [address] Dec, 2014 [facility] [address] [id number] [address] [place] [address], [place] [address] Dec, 2014 [facility] [address] [id number] [address] [place] [address], [place] [address] Dec, 2014 [facility] [address] [id number] [address] [place] [address], [place] [address] Dec, 2014 [facility] [address] [id number] [address] [place] [address], [place] [address] Dec, 2014 [facility] [address] [id number] [address] [place] [address] Dec, 2014 [facility] [address] [id number] [address] [place] [address] Dec, 2014 [facility] [address] [id number] [address] [place] [address], [place] [address] Dec, 2014 [facility] [address] [id number] [address] [place] [address], [place] [address] 16 Dec, 2014 [facility] [address] [id number] [address] [place] [address] 16 Dec, 2014 [facility] [address] [id number] [address] [place] [address] Nov, [facility] [address] [id number] [address] [place] [address], [place] [address] Nov, [facility] [address] [id number] [address] [place] [address], [place] [address] Nov, [facility] [address] [id number] [address] [place] [address], [place] [address] Nov, [facility] [address] [id number] [address] [place] [address], [place] [address] Nov, [facility] [address] [id number] [address] [place] [address], [place] [address] Nov, [facility] [address] [id number] [address] [place] [address], [place] [address] Nov, [facility] [address] [id number] [address] [place] [address], [place] [address] Nov, [facility] [address] [id number] [address] [place] [address], [place] [address] Nov, [facility] [address] [id number] [address] [place] [address], [place] [address] Nov, [facility] [address] [id number] [address] [place] [address], [place] [address] Nov, [facility] [address] [id number] [address] [place] [address], [place] [address] Nov, [facility] [address] [id number] [address] [place] [address], [place] [address] Oct, [facility] [address] [id number] [address] [place] [address], [place] [address] Oct, [facility] [address] [id number] [address] [place] [address], [place] [address] Oct, [facility] [address] [id number] [address] [place] [address], [place] [address] Oct, [facility] [address] [id number] [address] [place] [address], [place] [address] 29 Oct, 2014 [facility] [address] [id number] [address] [place] [address], [place] [address] 29 Oct, 2014 [facility] [address] [id number] [address] [place] [address], [place] [address] Oct, [facility] [address] [id number] [address] [place] [address], [place] [address] Oct, [facility] [address] [id number] [address] [place] [address], [place] [address] 17 Oct, 2014 [facility] [address] [id number] [address] [place] [address], [place] [address] 17 Oct, 2014 [facility] [address] [id number] [address] [place] [address], [place] [address] 16 Oct, 2014 [facility] [address] [id number] [address] [place] [address], [place] [address] 16 Oct, 2014 [facility] [address] [id number] [address] [place] [address], [place] [address] 15 Oct, 2014 [facility] [address] [id number] [address] [place] [address], [place] [address] 15 Oct, 2014 [facility] [address] [id number] [address] [place] [address], [place] [address] 08 Oct, 2014 [facility] [address] [id number] [address] [place] [address], [place] [address] Sep, [facility] [address] [id number] [address] [place] [address], [place] [address] Sep, [facility] [address] [id number] [address] [place] [address], [place] [address] Sep, [facility] [address] [id number] [address] [place] [address], [place] [address] Sep, [facility] [address] [id number] [address] [place] [address], [place] [address] Aug, [facility] [address] [id number] [address] [place] [address], [place] [address] Aug, [facility] [address] [id number] [address] [place] [address], [place] [address] Aug, [facility] [address] [id number] [address] [place] [address], [place] [address] Aug, [facility] [address] [id number] [address] [place] [address], [place] [address] Aug, [facility] [address] [id number] [address] [place] [address], [place] [address] Aug, [facility] [address] [id number] [address] [place] [address], [place] [address] 29 Jul, 2014 [facility] [address] [id number] [address] [place] [address], [place] [address] 29 Jul, 2014 [facility] [address] [id number] [address] [place] [address], [place] [address] 15 Jul, 2014 [facility] [address] [id number] [address] [place] [address], [place] [address] 15 Jul, 2014 [facility] [address] [id number] [address] [place] [address], [place] [address] 08 Jul, 2014 [facility] [address] [id number] [address] [place] [address], [place] [address] 08 Jul, 2014 [facility] [address] [id number] [address] [place] [address] Jun, [facility] [address] [id number] [address] [place] [address], [place] [address] Jun, [facility] [address] [id number] [address] [place] [address], [place] [address] Jun, [facility] [address] [id number] [address] [place] [address], [place] [address] Jun, [facility] [address] [id number] [address] [place] [address] Jun, [facility] [address] [id number] [facility] [place] [address] Jun, [facility] [address] [id number] [address] [place] [address], [place] [address] Jun, [facility] [address] [id number] [address] [place] [address], [place] [address] May, [facility] [address] [id number] [address] [place] [address], [place] [address] May, [facility] [address] [id number] [address] [place] [address], [place] [address] May, [facility] [address] [id number] [address] [place] [address], [place] [address] May, [facility] [address] [id number] [address] [place] [address], [place] [address] May, [facility] [address] [id number] [address] [place] [address], [place] [address] May, [facility] [address] [id number] [address] [place] [address], [place] [address] May, [facility] [address] [id number] [address] [place] [address], [place] [address] May, [facility] [address] [id number] [address] [place] [address], [place] [address] May, [facility] [address] [id number] [address] [place] [address], [place] [address] May, [facility] [address] [id number] [address] [place] [address], [place] [address] May, [facility] [address] [id number] [address] [place] [address], [place] [address] May, [facility] [address] [id number] [address] [place] [address], [place] [address] Apr, [facility] [address] [id number] [facility] [place] [address] Apr, [facility] [address] [id number] [facility] [place] [address] Apr, [facility] [address] [id number] [facility] [place] [address] Apr, [facility] [address] [id number] [address] [place] [address], [place] [address] Apr, [facility] [address] [id number] [address] [place] [address], [place] [address] Apr, [facility] [address] [id number] [address] [place] [address], [place] [address] Apr, [facility] [address] [id number] [address] [place] [address], [place] [address] Apr, [facility] [address] [id number] [address] [place] [address], [place] [address] Apr, [facility] [address] [id number] [address] [place] [address], [place] [address] Apr, [facility] [address] [id number] [address] [place] [address], [place] [address] March, [facility] [address] [id number] [address] [place] [address], [place] [address] March, [facility] [address] [id number] [address] [place] [address], [place] [address] March, [facility] [address] [id number] [address] [place] [address], [place] [address] March, [facility] [address] [id number] [address] [place] [address], [place] [address] March, [facility] [address] [id number] [address] [place] [address], [place] [address] March, [facility] [address] [id number] [address] [place] [address], [place] [address] Feb, [facility] [address] [id number] [facility] [place] [address] Feb, [facility] [address] [id number] [facility] [place] [address] Feb, [facility] [address] [id number] [address] [place] [address], [place] [address] Feb, [facility] [address] [id number] [address] [place] [address], [place] [address] Feb, [facility] [address] [id number] [address] [place] [address], [place] [address] Feb, [facility] [address] [id number] [address] [place] [address], [place] [address] Feb, [facility] [address] [id number] [address] [place] [address], [place] [address] Feb, [facility] [address] [id number] [address] [place] [address], [place] [address] Feb, [facility] [address] [id number] [address] [place] [address], [place] [address] Feb, [facility] [address] [id number] [address] [place] [address], [place] [address] Jan, [facility] [address] [id number] [address] [place] [address], [place] [address] Jan, [facility] [address] [id number] [address] [place] [address], [place] [address] Jan, [facility] [address] [id number] [address] [place] [address], [place] [address] Jan, [facility] [address] [id number] [address] [place] [address], [place] [address] Jan, [facility] [address] [id number] [address] [place] [address], [place] [address] Jan, [facility] [address] [id number] [address] [place] [address], [place] [address] Jan, [facility] [address] [id number] [address] [place] [address], [place] [address] Jan, [facility] [address] [id number] [address] [place] [address], [place] [address] Dec, [facility] [address] [id number] [address] [place] [address], [place] [address] Dec, [facility] [address] [id number] [address] [place] [address], [place] [address] Dec, [facility] [address] [id number] [address] [place] [address], [place] [address] Dec, [facility] [address] [id number] [address] [place] [address], [place] [address] Dec, [facility] [address] [id number] [address] [place] [address], [place] [address] Dec, [facility] [address] [id number] [address] [place] [address], [place] [address] Dec, [facility] [address] [id number] [address] [place] [address], [place] [address] Dec, [facility] [address] [id number] [address] [place] [address], [place] [address] Nov, [facility] [address] [id number] [address] [place] [address], [place] [address] Nov, [facility] [address] [id number] [address] [place] [address], [place] [address] Nov, [facility] [address] [id number] [address] [place] [address], [place] [address] Nov, [facility] [address] [id number] [address] [place] [address], [place] [address] Nov, [facility] [address] [id number] [address] [place] [address] [address] Nov, [facility] [address] [id number] [address] [place] [address], [place] [address] Nov, [facility] [address] [id number] [address] [place] [address], [place] [address] Nov, [facility] [address] [id number] [address] [place] [address], [place] [address] Nov, [facility] [address] [id number] [address] [place] [address], [place] [address] Nov, [facility] [address] [id number] [address] [place] [address], [place] [address] Nov, [facility] [address] [id number] [address] [place] [address], [place] [address] Oct, [facility] [address] [id number] [address] [place] [address], [place] [address] Oct, [facility] [address] [id number] [address] [place] [address], [place] [address] Oct, [facility] [address] [id number] [address] [place] [address], [place] [address] Oct, [facility] [address] [id number] [address] [place] [address], [place] [address] Sep, [facility] [address] [id number] [address] [place] [address], [place] [address] Sep, [facility] [address] [id number] [address] [place] [address] Sep, [facility] [address] [id number] [address] [place] [address], [place] [address] Sep, [facility] [address] [id number] [address] [place] [address], [place] [address] Aug, [facility] [address] [id number] [address] [place] [address], [place] [address] Aug, [facility] [address] [id number] [address] [place] [address], [place] [address] Aug, [facility] [address] [id number] [address] [place] [address], [place] [address] Aug, [facility] [address] [id number] [address] [place] [address], [place] [address] Aug, [facility] [address] [id number] [address] [place] [address], [place] [address] Aug, [facility] [address] [id number] [address] [place] [address], [place] [address] Aug, [facility] [address] [id number] [address] [place] [address], [place] [address] Aug, [facility] [address] [id number] [address] [place] [address], [place] [address] 28 Sep, 2012 [facility] [address] [id number] [address] [place] [address], [place] [address] 27 Sep, 2012 [facility] [address] [id number] [address] [place] [address], [place] [address] 26 Sep, 2012 [facility] [address] [id number] [address] [place] [address], [place] [address] 24 Sep, 2012 [facility] [address] [id number] [address] [place] [address], [place] [id number] 24 Sep, 2012 [facility] [address] [id number] [address] [place] [address], [place] [id number] 23 Sep, 2012 [facility] [address] [id number] [address] [place] [address], [place] [address] 19 Sep, 2012 [facility] [address] [id number] [address] [place] [address], [place] [address] 18 Sep, 2012 [facility] [address] [id number] [address] [place] [address], [place] [address] 17 Sep, 2012 [facility] [address] [id number] [address] [place] [address], [place] [address] 16 Sep, 2012 [facility] [address] [id number] [address] [place] [address], [place] [address] 13 Jul, 2012 [facility] [address] [id number] [address] [place] [address], [place] [address] 13 Jul, 2013 [facility] [address] [id number] [address] [place] [address], [place] [address] 12 Jul, 2013 [facility] [address] [id number] [address] [place] [address], [place] [address] 11 Jul, 2013 [facility] [address] [id number] [address] [place] [address], [place] [id number] 04 Jul, 2013 [facility] [address] [id number] [address] [place] [address], [place] [address] Jun, [facility] [address] [id number] [address] [place] [address], [place] [address] Jun, [facility] [address] [id number] [address] [place] [address], [place] [address] Jun, [facility] [address] [id number] [address] [place] [address], [place] [address] May, [facility] [address] [id number] [address] [place] [address], [place] [address] May, [facility] [address] [id number] [address] [place] [address], [place] [address] May, [facility] [address] [id number] [address] [place] [address], [place] [address] May, [facility] [address] [id number] [address] [place] [address], [place] [address] Apr, [facility] [address] [id number] [address] [place] [address], [place] [address] Apr, [facility] [address] [id number] [address] [place] [address], [place] [address] Apr, [facility] [address] [id number] [address] [place] [address], [place] [address] Apr, [facility] [address] [id number] [address] [place] [address], [place] [address] March, [facility] [address] [id number] [address] [place] [address], [place] [address] March, [facility] [address] [id number] [address] [place] [address], [place] [address] March, [facility] [address] [id number] [address] [place] [address], [place] [address] Feb, [facility] [address] [id number] [address] [place] [address], [place] [address] Feb, [facility] [address] [id number] [address] [place] [address], [place] [address] Jan, [facility] [address] [id number] [address] [place] [address], [place] [address] Jan, [facility] [address] [id number] [address] [place] [address], [place] [address] Jan, [facility] [address] [id number] [address] [place] [address], [place] [address] Jan, [facility] [address] [id number] [address] [place] [address], [place] [address] Jan, [facility] [address] [id number] [address] [place] [address], [place] [address] Dec, [facility] [address] [id number] [address] [place] [address], [place] [address] Dec, [facility] [address] [id number] [address] [place] [address], [place] [address] Dec, [facility] [address] [id number] [address] [place] [address], [place] [address] Dec, [facility] [address] [id number] [address] [place] [address], [place] [address] Dec, [facility] [address] [id number] [address] [place] [address], [place] [address] 06 Dec, 2012 [facility] [address] [id number] [address] [place] [address], [place] [address] Dec, [facility] [address] [id number] [address] [place] [address], [place] [address] Dec, [facility] [address] [id number] [address] [place] [address], [place] [address] Nov, [facility] [address] [id number] [address] [place] [address], [place] [address] Nov, [facility] [address] [id number] [address] [place] [address], [place] [address] Nov, [facility] [address] [id number] [address] [place] [address], [place] [address] Nov, [facility] [address] [id number] [address] [place] [address], [place] [address] Nov, [facility] [address] [id number] [address] [place] [address], [place] [address] Nov, [facility] [address] [id number] [address] [place] [address], [place] [address] Nov, [facility] [address] [id number] [address] [place] [address], [place] [address] Oct, [facility] [address] [id number] [address] [place] [address], [place] [address] Oct, [facility] [address] [id number] [address] [place] [address], [place] [address] Oct, [facility] [address] [id number] [address] [place] [address], [place] [address] Oct, [facility] [address] [id number] [address] [place] [address], [place] [address] 05 Oct, 2012 [facility] [address] [id number] [address] [place] [address], [place] [address] Oct, [facility] [address] [id number] [address] [place] [address], [place] [address] Oct, [facility] [address] [id number] [address] [place] [address], [place] [address] Oct, [facility] [address] [id number] [address] [place] [address], [place] [address] Sep, [facility] [address] [id number] [address] [place] [address], [place] [address] Sep, [facility] [address] [id number] [address] [place] [address], [place] [address] Sep, [facility] [address] [id number] [address] [place] [address], [place] [address] Sep, [facility] [address] [id number] [address] [place] [address], [place] [address] Sep, [facility] [address] [id number] [address] [place] [address], [place] [address] Sep, [facility] [address] [id number] [address] [place] [address], [place] [address] Sep, [facility] [address] [id number] [address] [place] [address], [place] [address] Sep, [facility] [address] [id number] [address] [place] [address], [place] [address] Sep, [facility] [address] [id number] [address] [place] [address], [place] [address] Sep, [facility] [address] [id number] [address] [place] [address], [place] [address] Sep, [facility] [address] [id number] [address] [place] [address], [place] [address] Sep, [facility] [address] [id number] [address] [place] [address], [place] [address] Sep, [facility] [address] [id number] [address] [place] [address], [place] [address] 05 Sep, 2012 [facility] [address] [id number] [address] [place] [address], [place] [address] Sep, [facility] [address] [id number] [address] [place] [address], [place] [address] Sep, [facility] [address] [id number] [address] [place] [address], [place] [address] Sep, [facility] [address] [id number] [address] [place] [address], [place] [address] Sep, [facility] [address] [id number] [address] [place] [address], [place] [address] Sep, [facility] [address] [id number] [address] [place] [address], [place] [address] Sep, [facility] [address] [id number] [address] [place] [address], [place] [address] Aug, [facility] [address] [id number] [address] [place] [address], [place] [address] 31 Aug, 2012 [facility] [address] [id number] [address] [place] [address], [place] [address] 29 Aug, 2012 [facility] [address] [id number] [address] [place] [address], [place] [address] 27 Aug, 2012 [facility] [address] [id number] [address] [place] [address], [place] [address] 27 Aug, 2012 [facility] [address] [id number] [address] [place] [address], [place] [address] 18 Aug, 2012 [facility] [address] [id number] [address] [place] [address], [place] [address] 18 Aug, 2012 [facility] [address] [id number] [address] [place] [address], [place] [address] 17 Aug, 2012 [facility] [address] [id number] [address] [place] [address], [place] [address] Aug, [facility] [address] [id number] [address] [place] [address], [place] [address] 16 Aug, 2012 [facility] [address] [id number] [address] [place] [address], [place] [address] Aug, [facility] [address] [id number] [address] [place] [address], [place] [address] Aug, [facility] [address] [id number] [address] [place] [address], [place] [address] Aug, [facility] [address] [id number] [address] [place] [address], [place] [address] Aug, [facility] [address] [id number] [address] [place] [address], [place] [address] Aug, [facility] [address] [id number] [address] [place] [address], [place] [address] 14 Jul, 2012 [facility] [address] [id number] [address] [place] [address], [place] [address] Jul, [facility] [address] [id number] [address] [place] [address], [place] [address] Jun, [facility] [address] [id number] [address] [place] [address], [place] [address] Jun, [facility] [address] [id number] [address] [place] [address], [place] [address] May, [facility] [address] [id number] [address] [place] [address] May, [facility] [address] [id number] [address] [place] [address], [place] [address] May, [facility] [address] [id number] [address] [place] [address], [place] [address] May, [facility] [address] [id number] [address] [place] [address], [place] [address] May, [facility] [address] [id number] [address] [place] [address] May, [facility] [address] [id number] [address] [place] [address], [place] [address] Apr, [facility] [address] [id number] [address] [place] [address], [place] [address] Apr, [facility] [address] [id number] [address] [place] [address], [place] [address] March, [facility] [address] [id number] [address] [place] [address], [place] [address] March, [facility] [address] [id number] [address] [place] [address], [place] [address] March, [facility] [address] [id number] [address] [place] [address], [place] [address] March, [facility] [address] [id number] [address] [place] [address], [place] [address] March, [facility] [address] [id number] [address] [place] [address], [place] [address] March, [facility] [address] [id number] [address] [place] [address], [place] [address] 30 Feb, 2012 [facility] [address] [id number] [address] [place] [address], [place] [address] Feb, [facility] [address] [id number] [address] [place] [address], [place] [address] Feb, [facility] [address] [id number] [address] [place] [address], [place] [address] Feb, [facility] [address] [id number] [address] [place] [address], [place] [address] 23 Feb, 2012 [facility] [address] [id number] [address] [place] [address], [place] [address] 19 Feb, 2012 [facility] [address] [id number] [address] [place] [address], [place] [address] 10 Feb, 2012 [facility] [address] [id number] [facility] [place] [address] 09 Feb, 2012 [facility] [address] [id number] [facility] [place] [address] 04 Feb, 2012 [facility] [address] [id number] [facility] [place] [address] 30 Jan, 2012 [facility] [address] [id number] [facility] [place] [address] 27 Jan, 2012 [facility] [address] [id number] [facility] [place] [address] 26 Jan, 2012 [facility] [address] [id number] [address] [place] [address], [place] [address] 22 Jan, 2012 [facility] [address] [id number] [address] [place] [address], [place] [address] Jan, [facility] [address] [id number] [address] [place] [address], [place] [address] 20 Jan, 2012 [facility] [address] [id number] [address] [place] [address], [place] [address] 14 Jan, 2012 [facility] [address] [id number] [address] [place] [address], [place] [address] Jan, [facility] [address] [id number] [address] [place] [address], [place] [address] Jan, [facility] [address] [id number] [address] [place] [address], [place] [address] 08 Jan, 2012 [facility] [address] [id number] [address] [place] [address], [place] [address] 07 Jan, 2012 [facility] [address] [id number] [address] [place] [address], [place] [address] 06 Jan, 2012 [facility] [address] [id number] [address] [place] [address], [place] [address] 02 Jan, 2012 [facility] [address] [id number] [address] [place] [address], [place] [address] Jan, [facility] [address] [id number] [address] [place] [address], [place] [address] Dec, [facility] [address] [id number] [address] [place] [address], [place] [address] Dec, [facility] [address] [id number] [address] [place] [address], [place] [address] Dec, [facility] [address] [id number] [address] [place] [address], [place] [address] Dec, [facility] [address] [id number] [address] [place] [address], [place] [address] 16 Dec, 2011 [facility] [address] [id number] [address] [place] [address], [place] [address] 08 Dec, 2011 [facility] [address] [id number] [address] [place] [address], [place] [address] 08 Dec, 2011 [facility] [address] [id number] [address] [place] [address], [place] [address] 07 Dec, 2011 [facility] [address] [id number] [address] [place] [address], [place] [address] 07 Dec, 2011 [facility] [address] [id number] [address] [place] [address], [place] [address] Nov, [facility] [address] [id number] [address] [place] [address], [place] [address] Nov, [facility] [address] [id number] [address] [place] [address], [place] [address] Nov, [facility] [address] [id number] [address] [place] [address], [place] [address] Nov, [facility] [address] [id number] [address] [place] [address], [place] [address] Oct, [facility] [address] [id number] [address] [place] [address], [place] [address] Oct, [facility] [address] [id number] [address] [place] [address], [place] [address] Oct, [facility] [address] [id number] [address] [place] [address], [place] [address] Oct, [facility] [address] [id number] [address] [place] [address], [place] [address] Oct, [facility] [address] [id number] [address] [place] [address], [place] [address] Oct, [facility] [address] [id number] [address] [place] [address], [place] [address] Oct, [facility] [address] [id number] [address] [place] [address], [place] [address] Sep, [facility] [address] [id number] [address] [place] [address], [place] [address] Sep, [facility] [address] [id number] [address] [place] [address], [place] [address] Sep, [facility] [address] [id number] [address] [place] [address], [place] [address] Sep, [facility] [address] [id number] [address] [place] [address], [place] [address] Sep, [facility] [address] [id number] [address] [place] [address], [place] [address] Sep, [facility] [address] [id number] [address] [place] [address], [place] [address] Sep, [facility] [address] [id number] [address] [place] [address], [place] [address] Sep, [facility] [address] [id number] [address] [place] [address], [place] [address] Sep, [facility] [address] [id number] [address] [place] [address], [place] [address] Aug, [facility] [address] [id number] [address] [place] [address], [place] [address] Aug, [facility] [address] [id number] [address] [place] [address], [place] [address] Aug, [facility] [address] [id number] [address] [place] [address], [place] [address] May, [facility] [address] [id number] [address] [place] [address], [place] [address] Nov, [facility] [address] [id number] [address] [place] [address], [place] [address] Oct, [facility] [address] [id number] [address] [place] [address], [place] [address] Oct, [facility] [address] [id number] [address] [place] [address], [place] [address] Oct, [facility] [address] [id number] [address] [place] [address], [place] [address] Oct, [facility] [address] [id number] [address] [place] [address], [place] [address] Oct, [facility] [address] [id number] [address] [place] [address], [place] [address] Sep, [facility] [address] [id number] [address] [place] [address], [place] [address] Sep, [facility] [address] [id number] [address] [place] [address], [place] [address] 14 Jul, 2010 [facility] [address] [id number] [address] [place] [address] Oct, [facility] [address] [id number] [address] [place] [address], [place] [address] Oct, [facility] [address] [id number] [address] [place] [address], [place] [address] 04 Oct, 2009 [facility] [address] [id number] [address] [place] [address], [place] [address] Oct, [facility] [address] [id number] [address] [place] [address] Sep, [facility] [place] [address] [id number] [address] [place] [address] Sep, [facility] [place] [address] [id number] [address] [place] [id number] Sep, [facility] [place] [address] [facility] [id number] [address] [place] [address] Sep, [facility] [place] [address] [facility] [id number] [address] [place] [address] Sep, [facility] [place] [address] [facility] [id number] [address] [place] [id number] Jul, [facility] [place] [address] [facility] [id number] [address] [place] [address] Apr, [facility] [place] [address] [facility] [id number] [address] [place] [address] Dec, IMMUNIZATIONS No Known Immunizations SOCIAL HISTORY [...]
--- OUTSIDE RECORDS SUMMARY | 2019-11-26 21:57 | XMS REPORT | Continuity of Care Document ---
Author Organization Unknown Address Unknown Phone Unavailable Allergies Active Description Code Type Severity Reaction Onset Reported/Identified Relationship to Patient Clinical Status Yes codeine Drug Allergy N/A N/A 01/02/2009 Yes Penicillins Drug Allergy N/A N/A 01/02/2009 Yes codeine Drug Allergy 01/02/2009 Yes Penicillins Drug Allergy 01/02/2009 Yes aspirin Drug Allergy N/A N/A 12/02/2012 Yes aspirin Drug Allergy 12/02/2012 Yes peanut Drug Allergy N/A N/A 2014 Yes tramadol [id number] Drug Allergy Mild N/V 07/23/2018 Yes aspirin [id number] Drug Allergy Mild Nausea 07/30/2018 Yes codeine [id number] Drug Allergy Mild Nausea 07/30/2018 Yes Penicillins [id number] Drug Aller gy Mild Hives 07/30/2018 Yes amlodipine besylate [id number] Drug Allergy Unknown N/A 07/30/[id number] Dr ug Allergy Unknown N/A 07/30/2018 Yes Ucwstju-Dpd-Qss Reductase Inhibitor [id number] Drug Allergy Unknown N/A 07/30/2018 Yes amlodipine besylate [id number] Drug Allergy Unknown TAKES AMLODIPIN 05/30 Yes Gpijgpa-Ofd-Dcp Reductase Inhibitor [id number] Drug Allergy Unknown TAKES ATORVASTA 06/15/2019 Medications There is no data. 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 02 Diabetes Mellitus Type Ii - Uncomplicated, Uncontrolled 06/27/2008 KARYN OLVERA, BYRON Bruner 250.02 Diabetes Mellitus Type Ii - Uncomplicated, Uncontrolle d 06/27/2008 250.02 Michele betes Mellitus Type Ii - Uncomplicated, Uncontrolled 06/27/2008 250.02 Michele betes Mellitus Type Ii - Uncomplicated, Uncontrolled 06/27/2008 250.02 Michele betes Mellitus Type Ii - Uncomplicated, Uncontrolled 06/27/2008 250.02 Michele betes Mellitus Type Ii - Uncomplicated, Uncontrolled 06/27/2008 KARYN OLVERA, BYRON Bruner 250.02 Diabetes Mellitus Type Ii - Uncomplicated, Uncontrolle d 06/27/2008 KARYN OLVERA, BYRON Bruner 250.02 Diabetes Mellitus Type Ii - Uncomplicated, Uncontrolle d 06/27/2008 LADONNA SALGUERO DO 250.02 Diabetes Mellitus Type Ii - Uncomplicated, Uncontrolled 06/27/2008 KARYN OLVERA, BYRON Bruner 250.02 Diabetes Mellitus Type Ii - Uncomplicated, Uncontrolle d 06/27/2008 LADONNA SALGUERO DO K 250.02 Diabetes Mellitus Type Ii - Uncomplicated, Uncontrolled 06/27/2008 KARYN OLVERA, BYRON Bruner 250.02 Diabetes Mellitus Type Ii - Uncomplicated, Uncontrolle d 06/27/2008 KARYN OLVERA, BYRON Bruner 250.02 Diabetes Mellitus Type Ii - Uncomplicated, Uncontrolle d 06/27/2008 TERE SALGUERO DOA K 250.02 Diabetes Mellitus Type Ii - Uncomplicated, Uncontrolled 06/27/2008 TERE SALGUERO DOA K 250.02 Diabetes Mellitus Type Ii - Uncomplicated, Uncontrolled 06/27/2008 TERE SALGUERO DOA K 250.02 Diabetes Mellitus Type Ii - Uncomplicated, Uncontrolled 06/27/2008 TERE SALGUERO DOA K 250.02 Diabetes Mellitus Type Ii - Uncomplicated, Uncontrolled 06/27/2008 MADL OTOLARYNGOLOGY TEACHERHAMMADA L 250 .02 Diabetes Mellitus Type Ii - Uncomplicated, Uncontrolled 06/27/2008 MADL OTOLARYNGOLOGY TEACHER, ETELVINA L 250 .02 Diabetes Mellitus Type Ii - Uncomplicated, Uncontrolled 06/27/2008 MADL OTOLARYNGOLOGY TEACHER, ETELVINA L 250 .02 Diabetes Mellitus Type Ii - Uncomplicated, Uncontrolled 06/27/2008 TERE SALGUERO DOA K 250.02 Diabetes Mellitus Type Ii - Uncomplicated, Uncontrolled 06/27/2008 NOEMY PRAKASH LADONNA K 250.02 Diabetes Mellitus Type Ii - Uncomplicated, Uncontrolled 06/27/2008 MADL OTOLARYNGOLOGY TEACHER, ETELVINA L 250 .02 Diabetes Mellitus Type Ii - Uncomplicated, Uncontrolled 06/27/2008 MADL OTOLARYNGOLOGY TEACHER, ETELVINA L 250 .02 Diabetes Mellitus Type Ii - Uncomplicated, Uncontrolled 06/27/2008 MADL OTOLARYNGOLOGY TEACHER, ETELVINA L 250 .02 Diabetes Mellitus Type Ii - Uncomplicated, Uncontrolled 06/27/2008 MADL OTOLARYNGOLOGY TEACHER, ETELVINA L 250 .02 Diabetes Mellitus Type Ii - Uncomplicated, Uncontrolled 06/27/2008 MADL OTOLARYNGOLOGY TEACHER, ETELVINA L 250 .02 Diabetes Mellitus Type Ii - Uncomplicated, Uncontrolled 06/27/2008 MADL OTOLARYNGOLOGY TEACHER, ETELVINA L 250 .02 Diabetes Mellitus Type Ii - Uncomplicated, Uncontrolled 06/27/2008 MADL OTOLARYNGOLOGY TEACHER, ETELVINA L 250 .02 Diabetes Mellitus Type Ii - Uncomplicated, Uncontrolled 06/27/2008 SALGUERO DO LADONNA K 250.02 Diabetes Mellitus Type Ii - Uncomplicated, Uncontrolled 06/27/2008 SALGUERO TERE PRAKASHA K 250.02 Diabetes Mellitus Type Ii - Uncomplicated, Uncontrolled 06/27/2008 MADL OTOLARYNGOLOGY TEACHER, ETELVINA L 250 .02 Diabetes Mellitus Type Ii - Uncomplicated, Uncontrolled 06/27/2008 SALGUERO DO LADONNA K 250.02 Diabetes Mellitus Type Ii - Uncomplicated, Uncontrolled 06/27/2008 MADL OTOLARYNGOLOGY TEACHER, ETELVINA L 250 .02 Diabetes Mellitus Type Ii - Uncomplicated, Uncontrolled 09/27/2008 MORGAN OTOLARYNGOLOGY TEACHER, LAURIE S 250.00 DIABETES MELLITUS 09/27/2008 MORGAN HARRIS, LAURIE S 401.1 ESSENTIAL HYPERTENSION BENIGN 09/27/2008 250.00 MICHELE BETES MELLITUS 09/27/2008 401.1 ESSE NTIAL HYPERTENSION BENIGN 09/27/2008 MORGAN OTOLARYNGOLOGY TEACHER, LAURIE S 250.00 DIABETES MELLITUS 09/27/2008 MORGAN OTOLARYNGOLOGY TEACHER, LAURIE S 401.1 ESSENTIAL HYPERTENSION BENIGN 09/27/2008 MORGAN OTOLARYNGOLOGY TEACHER, LAURIE S 250.00 DIABETES MELLITUS 09/27/2008 MORGAN OTOLARYNGOLOGY TEACHER, LAURIE S 401.1 ESSENTIAL HYPERTENSION BENIGN 09/27/2008 ROMELIA FISCHER MD 250. 00 DIABETES MELLITUS 09/27/2008 ROMELIA FISCHER MD 401. 1 ESSENTIAL HYPERTENSION BENIGN 09/27/2008 YBRON BOSS MD 250.00 DIABETES MELLITUS 09/27/2008 BYRON BOSS MD 401.1 ESSENTIAL HYPERTENSION BENIGN 09/27/2008 250.00 MICHELE BETES MELLITUS 09/27/2008 401.1 ESSE NTIAL HYPERTENSION BENIGN 09/27/2008 250.00 MICHELE BETES MELLITUS 09/27/2008 401.1 ESSE NTIAL HYPERTENSION BENIGN 09/27/2008 250.00 MICHELE BETES MELLITUS 09/27/2008 401.1 ESSE NTIAL HYPERTENSION BENIGN 09/27/2008 250.00 MICHELE BETES MELLITUS 09/27/2008 401.1 ESSE NTIAL HYPERTENSION BENIGN 09/27/2008 BYRON BOSS MD 250.00 [...] K 401.1 ESSENTIAL HYPERTENSION BENIGN 09/27/2008 MADL OTOLARYNGOLOGY TEACHER, ETELVINA L 250 .00 DIABETES MELLITUS 09/27/2008 MADL OTOLARYNGOLOGY TEACHER, ETELVINA L 401 .1 ESSENTIAL HYPERTENSION BENIGN 09/27/2008 MADL OTOLARYNGOLOGY TEACHER, ETELVINA L 250 .00 DIABETES MELLITUS 09/27/2008 MADL OTOLARYNGOLOGY TEACHER, ETELVINA L 401 .1 ESSENTIAL HYPERTENSION BENIGN 09/27/2008 MADL OTOLARYNGOLOGY TEACHER, ETELVINA L 250 .00 DIABETES MELLITUS 09/27/2008 MADL OTOLARYNGOLOGY TEACHER, ETELVINA L 401 .1 ESSENTIAL HYPERTENSION BENIGN 09/27/2008 SALGUERO DO, LADONNA K 250.00 DIABETES MELLITUS 09/27/2008 SALGUERO DO, LADONNA K 401.1 ESSENTIAL HYPERTENSION BENIGN 09/27/2008 SALGUERO DO, LADONNA K 250.00 DIABETES MELLITUS 09/27/2008 SALGUERO DO, ALDONNA K 401.1 ESSENTIAL HYPERTENSION BENIGN 09/27/2008 MADL OTOLARYNGOLOGY TEACHER, ETELVINA L 250 .00 DIABETES MELLITUS 09/27/2008 MADL OTOLARYNGOLOGY TEACHER, ETELVINA L 401 .1 ESSENTIAL HYPERTENSION BENIGN 09/27/2008 MADL OTOLARYNGOLOGY TEACHER, ETELVINA L 250 .00 DIABETES MELLITUS 09/27/2008 MADL OTOLARYNGOLOGY TEACHER, ETELVINA L 401 .1 ESSENTIAL HYPERTENSION BENIGN 09/27/2008 MADL OTOLARYNGOLOGY TEACHER, ETELVINA L 250 .00 DIABETES MELLITUS 09/27/2008 MADL OTOLARYNGOLOGY TEACHER, ETELVINA L 401 .1 ESSENTIAL HYPERTENSION BENIGN 09/27/2008 MADL OTOLARYNGOLOGY TEACHER, ETELVINA L 250 .00 DIABETES MELLITUS 09/27/2008 MADL OTOLARYNGOLOGY TEACHER, ETELVINA L 401 .1 ESSENTIAL HYPERTENSION BENIGN 09/27/2008 MADL OTOLARYNGOLOGY TEACHER, ETELVINA L 250 .00 DIABETES MELLITUS 09/27/2008 MADL OTOLARYNGOLOGY TEACHER, ETELVINA L 401 .1 ESSENTIAL HYPERTENSION BENIGN 09/27/2008 MADL OTOLARYNGOLOGY TEACHER, ETELVINA L 250 .00 DIABETES MELLITUS 09/27/2008 MADL OTOLARYNGOLOGY TEACHER, ETELVINA L 401 .1 ESSENTIAL HYPERTENSION BENIGN 09/27/2008 MADL OTOLARYNGOLOGY TEACHER, ETELVINA L 250 .00 DIABETES MELLITUS 09/27/2008 MADL OTOLARYNGOLOGY TEACHER, ETELVINA L 401 .1 ESSENTIAL HYPERTENSION BENIGN 09/27/2008 SALGUERO DO, LADONNA K 250.00 DIABETES MELLITUS 09/27/2008 SALGUERO DO, LADONNA K 401.1 ESSENTIAL HYPERTENSION BENIGN 09/27/2008 SALGUERO DO, LADONNA K 250.00 DIABETES MELLITUS 09/27/2008 SALGUERO DO, LADONNA K 401.1 ESSENTIAL HYPERTENSION BENIGN 09/27/2008 MADL OTOLARYNGOLOGY TEACHER, ETELVINA L 250 .00 DIABETES MELLITUS 09/27/2008 MADL OTOLARYNGOLOGY TEACHER, ETELVINA L 401 .1 ESSENTIAL HYPERTENSION BENIGN 09/27/2008 SALGUERO DO, LADONNA K 250.00 DIABETES MELLITUS 09/27/2008 SALGUERO DO, LADONNA K 401.1 ESSENTIAL HYPERTENSION BENIGN 09/27/2008 MADL OTOLARYNGOLOGY TEACHER, ETELVINA L 250 .00 DIABETES MELLITUS 09/27/2008 MADL OTOLARYNGOLOGY TEACHER, ETELVINA L 401 .1 ESSENTIAL HYPERTENSION BENIGN 11/01/2008 LAURIE MORA APRN 719.46 Pain In Joint Involving Lower Leg 11/01/2008 719.46 Gabrielle n In Joint Involving Lower Leg 11/01/2008 LAURIE MORA APRN 719.46 Pain In Joint Involving Lower Leg 11/01/2008 LAURIE MORA APRN 719.46 Pain In Joint Involving Lower Leg 11/01/2008 ROMELIA FISCHER MD 719. 46 Pain In Joint Involving Lower Leg 11/01/2008 BYRON BOSS MD 719.46 Pain In Joint Involving Lower Leg 11/01/2008 719.46 Gabrielle n In Joint Involving Lower Leg 11/01/2008 719.46 Gabrielle n In Joint Involving Lower Leg 11/01/2008 719.46 Gabrielle n In Joint Involving Lower Leg 11/01/2008 719.46 Gabrielle n In Joint Involving Lower Leg 11/01/2008 BYRON BOSS MD 719.46 Pain In Joint Involving Lower Leg 11/01/2008 BYRON BOSS MD 719.46 Pain In Joint Involving Lower Leg 11/01/2008 LADONNA SALGUERO DO 719.46 Pain In Joint Involving Lower Leg 11/01/2008 BYRON BOSS MD 719.46 Pain In Joint Involving Lower Leg 11/01/2008 LADONNA SALGUERO DO 719.46 Pain In Joint Involving Lower Leg 11/01/2008 KARYN MD, BYRON M 719.46 Pain In Joint Involving Lower Leg 11/01/2008 KARYN OLVERA, BYRON Bruner 719.46 Pain In Joint Involving Lower Leg 11/01/2008 SALGUERO DO, LADONNA K 719.46 Pain In Joint Involving Lower Leg 11/01/2008 SALGUERO DO, LADONNA K 719.46 Pain In Joint Involving Lower Leg 11/01/2008 SALGUERO DO, LADONNA K 719.46 Pain In Joint Involving Lower Leg 11/01/2008 SALGUERO DO, LADONNA K 719.46 Pain In Joint Involving Lower Leg 11/01/2008 MADL OTOLARYNGOLOGY TEACHER, ETELVINA L 719 .46 Pain In Joint Involving Lower Leg 11/01/2008 MADL OTOLARYNGOLOGY TEACHER, ETELVINA L 719 .46 Pain In Joint Involving Lower Leg 11/01/2008 MADL OTOLARYNGOLOGY TEACHER, ETELVINA L 719 .46 Pain In Joint Involving Lower Leg 11/01/2008 SALGUERO DO, LADONNA K 719.46 Pain In Joint Involving Lower Leg 11/01/2008 SALGUERO DO LADONNA K 719.46 Pain In Joint Involving Lower Leg 11/01/2008 MADL OTOLARYNGOLOGY TEACHER, ETELVINA L 719 .46 Pain In Joint Involving Lower Leg 11/01/2008 MADL OTOLARYNGOLOGY TEACHER, ETELVINA L 719 .46 Pain In Joint Involving Lower Leg 11/01/2008 MADL OTOLARYNGOLOGY TEACHER, ETELVINA L 719 .46 Pain In Joint Involving Lower Leg 11/01/2008 MADL OTOLARYNGOLOGY TEACHER, ETELVINA L 719 .46 Pain In Joint Involving Lower Leg 11/01/2008 MADL OTOLARYNGOLOGY TEACHER, ETELVINA L 719 .46 Pain In Joint Involving Lower Leg 11/01/2008 MADL OTOLARYNGOLOGY TEACHER, ETELVINA L 719 .46 Pain In Joint Involving Lower Leg 11/01/2008 MADL OTOLARYNGOLOGY TEACHER, ETELVINA L 719 .46 Pain In Joint Involving Lower Leg 11/01/2008 SALGUERO DO, LADONNA K 719.46 Pain In Joint Involving Lower Leg 11/01/2008 SALGUERO DO, LADONNA K 719.46 Pain In Joint Involving Lower Leg 11/01/2008 MADL OTOLARYNGOLOGY TEACHER, ETELVINA L 719 .46 Pain In Joint Involving Lower Leg 11/01/2008 SALGUERO DO LADONNA K 719.46 Pain In Joint Involving Lower Leg 11/01/2008 ETELVINA LEONARD APRN 719 .46 Pain In Joint Involving Lower Leg 12/12/2008 PALOMA MORA APRNNDA S 496 COPD 12/12/2008 SUSHANT MORA APRNA S 728.85 Spasm Of Muscle 12/12/2008 496 COPD 12/12/2008 728.85 Spa sm Of Muscle 12/12/2008 PALOMA MORA APRNNDA S 496 COPD 12/12/2008 PALOMA MORA APRNNDA S 728.85 Spasm Of Muscle 12/12/2008 PALOMA MORA APRNNDA S 496 COPD 12/12/2008 PALOMA MORA APRNNDA S 728.85 Spasm Of Muscle 12/12/2008 ROMELIA FISCHER MD 496 COPD 12/12/2008 ROMELIA FISCHER MD 728. 85 Spasm Of Muscle 12/12/2008 BYRON BOSS MD 496 CHRONIC OBSTRUCTIVE PULMONARY DISEASE 12/12/2008 BYRON BOSS MD 728.85 Spasm Of Muscle 12/12/2008 496 CHRONI C OBSTRUCTIVE PULMONARY DISEASE 12/12/2008 728.85 Spa sm Of Muscle 12/12/2008 496 CHRONI C OBSTRUCTIVE PULMONARY DISEASE 12/12/2008 728.85 Spa sm Of Muscle 12/12/2008 496 CHRONI C OBSTRUCTIVE PULMONARY DISEASE 12/12/2008 728.85 Spa sm Of Muscle 12/12/2008 496 CHRONI C OBSTRUCTIVE PULMONARY DISEASE 12/12/2008 728.85 Spa sm Of Muscle 12/12/2008 BYRON BOSS MD 496 CHRONIC OBSTRUCTIVE PULMONARY DISEASE 12/12/2008 BYRON BOSS MD 728.85 Spasm Of Muscle 12/12/2008 BYRON BOSS MD 496 CHRONIC OBSTRUCTIVE PULMONARY DISEASE 12/12/2008 BYRON BOSS MD 728.85 Spasm Of Muscle 12/12/2008 LADONNA SALGUERO DO 496 CHRONIC OBSTRUCTIVE PULMONARY DISEASE 12/12/2008 LADONNA SALGUERO DO 728.85 Spasm Of Muscle 12/12/2008 BYRON BOSS MD 49Patt CHRONIC OBSTRUCTIVE PULMONARY DISEASE 12/12/2008 BYRON BOSS MD 728.85 Spasm Of Muscle 12/12/2008 SALGUERO DO, LADONNA K 496 CHRONIC OBSTRUCTIVE PULMONARY DISEASE 12/12/2008 SALGUERO DO, LADONNA K 728.85 Spasm Of Muscle 12/12/2008 BYRON BOSS MD 496 CHRONIC OBSTRUCTIVE PULMONARY DISEASE 12/12/2008 BYRON BOSS MD 728.85 Spasm Of Muscle 12/12/2008 BYRON BOSS MD 496 CHRONIC OBSTRUCTIVE PULMONARY DISEASE 12/12/2008 BYRON BOSS MD 728.85 Spasm Of Muscle 12/12/2008 SALGUERO DO, [...] K 728.85 Spasm Of Muscle 12/12/2008 MADL OTOLARYNGOLOGY TEACHER, ETELVINA L 496 CHRONIC OBSTRUCTIVE PULMONARY DISEASE 12/12/2008 MADL OTOLARYNGOLOGY TEACHER, ETELVINA L 728 .85 Spasm Of Muscle 12/12/2008 MADL OTOLARYNGOLOGY TEACHER, ETELVINA L 496 CHRONIC OBSTRUCTIVE PULMONARY DISEASE 12/12/2008 MADL OTOLARYNGOLOGY TEACHER, ETELVINA L 728 .85 Spasm Of Muscle 12/12/2008 MADL OTOLARYNGOLOGY TEACHER, ETELVINA L 496 CHRONIC OBSTRUCTIVE PULMONARY DISEASE 12/12/2008 MADL OTOLARYNGOLOGY TEACHER, ETELVINA L 728 .85 Spasm Of Muscle 12/12/2008 SALGUERO DO, LADONNA K 496 CHRONIC OBSTRUCTIVE PULMONARY DISEASE 12/12/2008 SALGUERO DO, LADONNA K 728.85 Spasm Of Muscle 12/12/2008 SALGUERO DO, LADONNA K 496 CHRONIC OBSTRUCTIVE PULMONARY DISEASE 12/12/2008 SALGUERO DO, LADONNA K 728.85 Spasm Of Muscle 12/12/2008 MADL OTOLARYNGOLOGY TEACHER, ETELVINA L 496 CHRONIC OBSTRUCTIVE PULMONARY DISEASE 12/12/2008 MADL OTOLARYNGOLOGY TEACHER, ETELVINA L 728 .85 Spasm Of Muscle 12/12/2008 MADL OTOLARYNGOLOGY TEACHER, ETELVINA L 496 CHRONIC OBSTRUCTIVE PULMONARY DISEASE 12/12/2008 MADL OTOLARYNGOLOGY TEACHER, ETELVINA L 728 .85 Spasm Of Muscle 12/12/2008 MADL OTOLARYNGOLOGY TEACHER, ETELVINA L 496 CHRONIC OBSTRUCTIVE PULMONARY DISEASE 12/12/2008 MADL OTOLARYNGOLOGY TEACHER, ETELVINA L 728 .85 Spasm Of Muscle 12/12/2008 MADL OTOLARYNGOLOGY TEACHER, ETELVINA L 496 CHRONIC OBSTRUCTIVE PULMONARY DISEASE 12/12/2008 MADL OTOLARYNGOLOGY TEACHER, ETELVINA L 728 .85 Spasm Of Muscle 12/12/2008 MADL OTOLARYNGOLOGY TEACHER, ETELVINA L 496 CHRONIC OBSTRUCTIVE PULMONARY DISEASE 12/12/2008 MADL OTOLARYNGOLOGY TEACHER, ETELVINA L 728 .85 Spasm Of Muscle 12/12/2008 MADL OTOLARYNGOLOGY TEACHER, ETELVINA L 496 CHRONIC OBSTRUCTIVE PULMONARY DISEASE 12/12/2008 MADL OTOLARYNGOLOGY TEACHER, ETELVINA L 728 .85 Spasm Of Muscle 12/12/2008 MADL OTOLARYNGOLOGY TEACHER, ETELVINA L 496 CHRONIC OBSTRUCTIVE PULMONARY DISEASE 12/12/2008 MADL OTOLARYNGOLOGY TEACHER, ETELVINA L 728 .85 Spasm Of Muscle 12/12/2008 SALGUERO DO, LADONNA K 496 CHRONIC OBSTRUCTIVE PULMONARY DISEASE 12/12/2008 SALGUERO DO, LADONNA K 728.85 Spasm Of Muscle 12/12/2008 SALGUERO DO, LADONNA K 496 CHRONIC OBSTRUCTIVE PULMONARY DISEASE 12/12/2008 SALGUERO DO, LADONNA K 728.85 Spasm Of Muscle 12/12/2008 MADL OTOLARYNGOLOGY TEACHER, ETELVINA L 496 CHRONIC OBSTRUCTIVE PULMONARY DISEASE 12/12/2008 MADL OTOLARYNGOLOGY TEACHER, ETELVINA L 728 .85 Spasm Of Muscle 12/12/2008 SALGUERO DO, LADONNA K 496 CHRONIC OBSTRUCTIVE PULMONARY DISEASE 12/12/2008 SALGUERO DO, LADONNA K 728.85 Spasm Of Muscle 12/12/2008 MADL OTOLARYNGOLOGY TEACHER, ETELVINA L 496 CHRONIC OBSTRUCTIVE PULMONARY DISEASE 12/12/2008 MADL OTOLARYNGOLOGY TEACHER, ETELVINA L 728 .85 Spasm Of Muscle 01/11/2009 MORGAN OTOLARYNGOLOGY TEACHER, LAURIE S 786.50 Chest Pain Or Discomfort 01/11/[address] Pain Or Discomfort 01/11/2009 MORGAN OTOLARYNGOLOGY TEACHER, LAURIE S 786.50 Chest Pain Or Discomfort 01/11/2009 MORGAN OTOLARYNGOLOGY TEACHER, LAURIE S 786.50 Chest Pain Or Discomfort 01/11/2009 ROMELIA FISCHER MD 786. 50 Chest Pain Or Discomfort 01/11/2009 BYRON BOSS MD 786.50 Chest Pain Or Discomfort 01/11/[address] Pain Or Discomfort 01/11/[address] Pain Or Discomfort 01/11/[address] Pain Or Discomfort 01/11/[address] Pain Or Discomfort 01/11/2009 BYRON BOSS MD [...] 786.50 Chest Pain Or Discomfort 01/11/2009 MADL OTOLARYNGOLOGY TEACHER, ETELVINA L 786 .50 Chest Pain Or Discomfort 01/11/2009 MADL OTOLARYNGOLOGY TEACHER, ETELVINA L 786 .50 Chest Pain Or Discomfort 01/11/2009 MADL OTOLARYNGOLOGY TEACHER, ETELVINA L 786 .50 Chest Pain Or Discomfort 01/11/2009 SALGUERO DO, LADONNA K 786.50 Chest Pain Or Discomfort 01/11/2009 SALGUERO DO, LADONNA K 786.50 Chest Pain Or Discomfort 01/11/2009 MADL OTOLARYNGOLOGY TEACHER, ETELVINA L 786 .50 Chest Pain Or Discomfort 01/11/2009 MADL OTOLARYNGOLOGY TEACHER, ETELVINA L 786 .50 Chest Pain Or Discomfort 01/11/2009 MADL OTOLARYNGOLOGY TEACHER, ETELVINA L 786 .50 Chest Pain Or Discomfort 01/11/2009 MADL OTOLARYNGOLOGY TEACHER, ETELVINA L 786 .50 Chest Pain Or Discomfort 01/11/2009 MADL OTOLARYNGOLOGY TEACHER, ETELVINA L 786 .50 Chest Pain Or Discomfort 01/11/2009 MADL OTOLARYNGOLOGY TEACHER, ETELVINA L 786 .50 Chest Pain Or Discomfort 01/11/2009 MADL OTOLARYNGOLOGY TEACHER, ETELVINA L 786 .50 Chest Pain Or Discomfort 01/11/2009 SALGUERO DO, LADONNA K 786.50 Chest Pain Or Discomfort 01/11/2009 SALGUERO DO, LADONNA K 786.50 Chest Pain Or Discomfort 01/11/2009 MADL OTOLARYNGOLOGY TEACHER, ETELVINA L 786 .50 Chest Pain Or Discomfort 01/11/2009 SALGUERO DO, LADONNA K 786.50 Chest Pain Or Discomfort 01/11/2009 MADL OTOLARYNGOLOGY TEACHER, ETELVINA L 786 .50 Chest Pain Or Discomfort 02/20/2009 LAURIE MORA APRN S 709.9 Dermatology - Skin Condition 02/20/2009 709.9 Derm atology - Skin Condition 02/20/2009 LAURIE MORA APRN S 709.9 Dermatology - Skin Condition 02/20/2009 LAURIE MORA APRN S 709.9 Dermatology - Skin Condition 02/20/2009 ROMELIA FISCHER MD 709. 9 Dermatology - Skin Condition 02/20/2009 BYRON BOSS MD 709.9 Dermatology - Skin Condition 02/20/2009 709.9 Derm atology - Skin Condition 02/20/2009 709.9 Derm atology - Skin Condition 02/20/2009 709.9 Derm atology - Skin Condition 02/20/2009 709.9 Derm atology - Skin Condition 02/20/2009 BYRON BOSS MD 709.9 Dermatology - Skin Condition 02/20/2009 BYRON BOSS MD 709.9 Dermatology - Skin Condition 02/20/2009 TERE SALGUERO DOA K 709.9 Dermatology - Skin Condition 02/20/2009 BYRON BOSS MD 709.9 Dermatology - Skin Condition 02/20/2009 TERE SALGUERO DOA K 709.9 Dermatology - Skin Condition 02/20/2009 BYRON BOSS MD 709.9 Dermatology - Skin Condition 02/20/2009 BYRON BOSS MD 709.9 Dermatology - Skin Condition 02/20/2009 TERE SALGUERO DOA K 709.9 Dermatology - Skin Condition 02/20/2009 SALGUERO DO, LADONNA K 709.9 Dermatology - Skin Condition 02/20/2009 SALGUERO DO, LADONNA K 709.9 Dermatology - Skin Condition 02/20/2009 SALGUERO DO, LADONNA K 709.9 Dermatology - Skin Condition 02/20/2009 MADL OTOLARYNGOLOGY TEACHER, ETELVINA L 709 .9 Dermatology - Skin Condition 02/20/2009 MADL OTOLARYNGOLOGY TEACHER, ETELVINA L 709 .9 Dermatology - Skin Condition 02/20/2009 MADL OTOLARYNGOLOGY TEACHER, ETELVINA L 709 .9 Dermatology - Skin Condition 02/20/2009 SALGUERO DO, LADONNA K 709.9 Dermatology - Skin Condition 02/20/2009 SALGUERO DO, LADONNA K 709.9 Dermatology - Skin Condition 02/20/2009 MADL OTOLARYNGOLOGY TEACHER, ETELVINA L 709 .9 Dermatology - Skin Condition 02/20/2009 MADL OTOLARYNGOLOGY TEACHER, ETELVINA L 709 .9 Dermatology - Skin Condition 02/20/2009 MADL OTOLARYNGOLOGY TEACHER, ETELVINA L 709 .9 Dermatology - Skin Condition 02/20/2009 MADL OTOLARYNGOLOGY TEACHER, ETELVINA L 709 .9 Dermatology - Skin Condition 02/20/2009 MADL OTOLARYNGOLOGY TEACHER, ETELVINA L 709 .9 Dermatology - Skin Condition 02/20/2009 MADL OTOLARYNGOLOGY TEACHER, ETELVINA L 709 .9 Dermatology - Skin Condition 02/20/2009 MADL OTOLARYNGOLOGY TEACHER, ETELVINA L 709 .9 Dermatology - Skin Condition 02/20/2009 SALGUERO DO, LADONNA K 709.9 Dermatology - Skin Condition 02/20/2009 SALGUERO DO, LADONNA K 709.9 Dermatology - Skin Condition 02/20/2009 MADL OTOLARYNGOLOGY TEACHER, ETELVINA L 709 .9 Dermatology - Skin Condition 02/20/2009 SALGUERO DO, LADONNA K 709.9 Dermatology - Skin Condition 02/20/2009 MADL OTOLARYNGOLOGY TEACHER, ETELVINA L 709 .9 Dermatology - Skin Condition 04/05/2009 LAURIE MORA APRN S 536.8 Dyspepsia And Other Specified Disorders Of Function Of Stomach 04/05/2009 536.8 Dysp epsia And Other Specified Disorders Of Function Of Stomach 04/05/2009 LAURIE MORA APRN S 536.8 Dyspepsia And Other Specified Disorders Of Function Of Stomach 04/05/2009 LAURIE MORA APRN 536.8 Dyspepsia And Other Specified Disorders Of Function Of Stomach 04/05/2009 ROMELIA FISCHER MD 536. 8 Dyspepsia And Other Specified Disorders Of Function Of Stomach 04/05/2009 BYRON BOSS MD 536.8 Dyspepsia And Other Specified Disorders Of Function Of Stomach 04/05/2009 536.8 Dysp epsia And Other Specified Disorders Of Function Of Stomach 04/05/2009 536.8 Dysp epsia And Other Specified Disorders Of Function Of Stomach 04/05/2009 536.8 Dysp epsia And Other Specified Disorders Of Function Of Stomach 04/05/2009 536.8 Dysp epsia And Other Specified Disorders Of Function Of [...] Specified Disorders Of Function Of Stomach 04/05/2009 ETELVINA LEONARD APRN 536 .8 Dyspepsia And Other Specified Disorders Of Function Of Stomach 04/05/2009 MADL OTOLARYNGOLOGY TEACHER, ETELVINA L 536 .8 Dyspepsia And Other Specified Disorders Of Function Of Stomach 04/05/2009 MADL OTOLARYNGOLOGY TEACHER, ETELVINA L 536 .8 Dyspepsia And Other Specified Disorders Of Function Of Stomach 04/05/2009 SALGUERO DO, LADONNA K 536.8 Dyspepsia And Other Specified Disorders Of Function Of Stomach 04/05/2009 SALGUERO DO, LADONNA K 536.8 Dyspepsia And Other Specified Disorders Of Function Of Stomach 04/05/2009 MADL OTOLARYNGOLOGY TEACHER, ETELVINA L 536 .8 Dyspepsia And Other Specified Disorders Of Function Of Stomach 04/05/2009 MADL OTOLARYNGOLOGY TEACHER, ETELVINA L 536 .8 Dyspepsia And Other Specified Disorders Of Function Of Stomach 04/05/2009 MADL OTOLARYNGOLOGY TEACHER, ETELVINA L 536 .8 Dyspepsia And Other Specified Disorders Of Function Of Stomach 04/05/2009 MADL OTOLARYNGOLOGY TEACHER, ETELVINA L 536 .8 Dyspepsia And Other Specified Disorders Of Function Of Stomach 04/05/2009 MADL OTOLARYNGOLOGY TEACHER, ETELVINA L 536 .8 Dyspepsia And Other Specified Disorders Of Function Of Stomach 04/05/2009 MADL OTOLARYNGOLOGY TEACHER, ETELVINA L 536 .8 Dyspepsia And Other Specified Disorders Of Function Of Stomach 04/05/2009 MADL OTOLARYNGOLOGY TEACHER, ETELVINA L 536 .8 Dyspepsia And Other Specified Disorders Of Function Of Stomach 04/05/2009 SALGUERO DO, LADONNA K 536.8 Dyspepsia And Other Specified Disorders Of Function Of Stomach 04/05/2009 SALGUERO DO, LADONNA K 536.8 Dyspepsia And Other Specified Disorders Of Function Of Stomach 04/05/2009 MADL OTOLARYNGOLOGY TEACHER, ETELVINA L 536 .8 Dyspepsia And Other Specified Disorders Of Function Of Stomach 04/05/2009 SALGUERO DO, LADONNA K 536.8 Dyspepsia And Other Specified Disorders Of Function Of Stomach 04/05/2009 MADL OTOLARYNGOLOGY TEACHER, ETELVINA L 536 .8 Dyspepsia And Other Specified Disorders Of Function Of Stomach 05/09/2009 LAURIE MORA APRN S 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 05/09/2009 PALOMA MORA APRNNDA S 787.02 Nausea 05/09/2009 327.52 Org anic Sleep- related Leg Cramps 05/09/2009 787.02 Nausea 05/09/2009 PALOMA MORA APRNNDA S 327.52 Organic Sleep-related Leg Cramps 05/09/2009 SUSHANT MORA APRNA S 787.02 Nausea 05/09/2009 SUSHANT MORA APRNA S 327.52 Organic Sleep-related Leg Cramps 05/09/2009 SUSHANT MORA APRNA S 787.02 Nausea 05/09/2009 ROMELIA FISCHER MD 327. 52 Organic Sleep-related Leg Cramps 05/09/2009 ROMELIA FISCHER MD 787. 02 Nausea 05/09/2009 BYRON BOSS MD 327.52 Organic Sleep-related Leg Cramps 05/09/2009 BYRON BOSS MD 787.02 Nausea 05/09/2009 327.52 Org anic Sleep- related Leg Cramps 05/09/2009 787.02 Nausea 05/09/2009 327.52 Org anic Sleep- related Leg Cramps 05/09/2009 787.02 Nausea 05/09/2009 327.52 Org anic Sleep- related Leg Cramps 05/09/2009 787.02 Nausea 05/09/2009 327.52 Org anic Sleep- related Leg Cramps 05/09/2009 787.02 Nausea 05/09/2009 BYRON BOSS MD 327.52 Organic Sleep-related Leg Cramps 05/09/2009 BYRON BOSS MD 787.02 Nausea 05/09/2009 BYRON BOSS MD 327.52 Organic Sleep-related Leg Cramps 05/09/2009 BYRON BOSS MD 787.02 Nausea 05/09/2009 SALGUERO LADONNA PRAKASH 327.52 Organic Sleep-related Leg Cramps 05/09/2009 TERE SALGUERO DOA K 787.02 Nausea 05/09/2009 BYRON BOSS MD 327.52 Organic Sleep-related Leg Cramps 05/09/2009 BYRON BOSS MD 787.02 Nausea 05/09/2009 SALGUERO DO LADONNA K 327.52 Organic Sleep-related Leg Cramps 05/09/2009 SALGUERO DO, LADONNA K 787.02 Nausea 05/09/2009 BYRON BOSS [...] DO, LADONNA K 787.02 Nausea 05/09/2009 MADL OTOLARYNGOLOGY TEACHER, ETELVINA L 327 .52 Organic Sleep-related Leg Cramps 05/09/2009 MADL OTOLARYNGOLOGY TEACHER, ETELVINA L 787 .02 Nausea 05/09/2009 MADL OTOLARYNGOLOGY TEACHER, ETELVINA L 327 .52 Organic Sleep-related Leg Cramps 05/09/2009 MADL OTOLARYNGOLOGY TEACHER, ETELVINA L 787 .02 Nausea 05/09/2009 MADL OTOLARYNGOLOGY TEACHER, ETELVINA L 327 .52 Organic Sleep-related Leg Cramps 05/09/2009 MADL OTOLARYNGOLOGY TEACHER, ETELVINA L 787 .02 Nausea 05/09/2009 SALGUERO DO, LADONNA K 327.52 Organic Sleep-related Leg Cramps 05/09/2009 SALGUERO DO, LADONNA K 787.02 Nausea 05/09/2009 SALGUERO DO, LADONNA K 327.52 Organic Sleep-related Leg Cramps 05/09/2009 SALGUERO DO, LADONNA K 787.02 Nausea 05/09/2009 MADL OTOLARYNGOLOGY TEACHER, ETELVINA L 327 .52 Organic Sleep-related Leg Cramps 05/09/2009 MADL OTOLARYNGOLOGY TEACHER, ETELVINA L 787 .02 Nausea 05/09/2009 MADL OTOLARYNGOLOGY TEACHER, ETELVINA L 327 .52 Organic Sleep-related Leg Cramps 05/09/2009 MADL OTOLARYNGOLOGY TEACHER, ETELVINA L 787 .02 Nausea 05/09/2009 MADL OTOLARYNGOLOGY TEACHER, ETELVINA L 327 .52 Organic Sleep-related Leg Cramps 05/09/2009 MADL OTOLARYNGOLOGY TEACHER, ETELVINA L 787 .02 Nausea 05/09/2009 MADL OTOLARYNGOLOGY TEACHER, ETELVINA L 327 .52 Organic Sleep-related Leg Cramps 05/09/2009 MADL OTOLARYNGOLOGY TEACHER, ETELVINA L 787 .02 Nausea 05/09/2009 MADL OTOLARYNGOLOGY TEACHER, ETELVINA L 327 .52 Organic Sleep-related Leg Cramps 05/09/2009 MADL OTOLARYNGOLOGY TEACHER, ETELVINA L 787 .02 Nausea 05/09/2009 MADL OTOLARYNGOLOGY TEACHER, ETELVINA L 327 .52 Organic Sleep-related Leg Cramps 05/09/2009 MADL OTOLARYNGOLOGY TEACHER, ETELVINA L 787 .02 Nausea 05/09/2009 MADL OTOLARYNGOLOGY TEACHER, ETELVINA L 327 .52 Organic Sleep-related Leg Cramps 05/09/2009 MADL OTOLARYNGOLOGY TEACHER, ETELVINA L 787 .02 Nausea 05/09/2009 SALGUERO DO, LADONNA K 327.52 Organic Sleep-related Leg Cramps 05/09/2009 SALGUERO DO, LADONNA K 787.02 Nausea 05/09/2009 SALGUERO DO, LADONNA K 327.52 Organic Sleep-related Leg Cramps 05/09/2009 SALGUERO DO, LADONNA K 787.02 Nausea 05/09/2009 MADL OTOLARYNGOLOGY TEACHER, ETELVINA L 327 .52 Organic Sleep-related Leg Cramps 05/09/2009 MADL OTOLARYNGOLOGY TEACHER, ETELVINA L 787 .02 Nausea 05/09/2009 SALGUERO DO, LADONNA K 327.52 Organic Sleep-related Leg Cramps 05/09/2009 SALGUERO DO, LADONNA K 787.02 Nausea 05/09/2009 MADL OTOLARYNGOLOGY TEACHER, ETELVINA L 327 .52 Organic Sleep-related Leg Cramps 05/09/2009 MADL OTOLARYNGOLOGY TEACHER, ETELVINA L 787 .02 Nausea 07/02/2009 MORGAN HARRIS, LAURIE S 465.9 Acute Upper Respiratory Infections Of Unspecified Site 07/02/2009 MORGAN OTOLARYNGOLOGY TEACHER, LAURIE S 780.4 Dizziness And Giddiness 07/02/2009 465.9 Acut e Upper Respiratory Infections Of Unspecified Site 07/02/2009 780.4 Dizz iness And Giddiness 07/02/2009 MORGAN OTOLARYNGOLOGY TEACHER, LAURIE S 465.9 Acute Upper Respiratory Infections Of Unspecified Site 07/02/2009 MORGAN OTOLARYNGOLOGY TEACHER, LAURIE S 780.4 Dizziness And Giddiness 07/02/2009 MORGAN HARRIS, LAURIE S 465.9 Acute Upper Respiratory Infections Of Unspecified Site 07/02/2009 MORGAN HARRIS, LAURIE S 780.4 Dizziness And Giddiness 07/02/2009 ROMELIA FISCHER MD 465. 9 Acute Upper Respiratory Infections Of Unspecified Site 07/02/2009 ROMELIA FISCHER MD 780. 4 Dizziness And Giddiness 07/02/2009 BYRON BOSS MD 465.9 Acute Upper Respiratory Infections Of Unspecified Site 07/02/2009 BYRON BOSS MD 780.4 Dizziness And Giddiness 07/02/2009 465.9 Acut e Upper Respiratory Infections Of Unspecified Site 07/02/2009 780.4 Dizz iness And Giddiness 07/02/2009 465.9 Acut e Upper Respiratory Infections Of Unspecified Site 07/02/2009 780.4 Dizz iness And Giddiness 07/02/2009 465.9 Acut e Upper Respiratory Infections Of Unspecified Site 07/02/2009 780.4 Dizz iness And Giddiness 07/02/2009 465.9 Acut e Upper Respiratory Infections Of Unspecified Site 07/02/2009 780.4 Dizz iness And Giddiness 07/02/2009 BYRON BOSS MD 465.9 Acute Upper Respiratory Infections Of Unspecified Site 07/02/2009 BYRON BOSS MD 780.4 Dizziness And Giddiness 07/02/2009 BYRON BOSS MD 465.9 Acute Upper Respiratory Infections Of Unspecified Site 07/02/2009 BYRON BOSS MD 780.4 Dizziness And Giddiness 07/02/2009 LADONNA SALGUERO DO 465.9 Acute Upper Respiratory Infections Of Unspecified Site 07/02/2009 SALGUERO DO, LADONNA K 780.4 Dizziness And Giddiness 07/02/2009 BYRON BOSS MD 465.9 Acute Upper Respiratory Infections Of Unspecified Site 07/02/2009 BYRON BOSS MD 780.4 Dizziness And Giddiness 07/02/2009 SAGLUERO DO, LADONNA K 465.9 Acute Upper Respiratory [...] K 780.4 Dizziness And Giddiness 07/02/2009 MADL OTOLARYNGOLOGY TEACHER, ETELVINA L 465 .9 Acute Upper Respiratory Infections Of Unspecified Site 07/02/2009 MADL OTOLARYNGOLOGY TEACHER, ETELVINA L 780 .4 Dizziness And Giddiness 07/02/2009 MADL OTOLARYNGOLOGY TEACHER, ETELVINA L 465 .9 Acute Upper Respiratory Infections Of Unspecified Site 07/02/2009 MADL OTOLARYNGOLOGY TEACHER, ETELVINA L 780 .4 Dizziness And Giddiness 07/02/2009 MADL OTOLARYNGOLOGY TEACHER, ETELVINA L 465 .9 Acute Upper Respiratory Infections Of Unspecified Site 07/02/2009 MADL OTOLARYNGOLOGY TEACHER, ETELVINA L 780 .4 Dizziness And Giddiness 07/02/2009 SALGUERO DO, LADONNA K 465.9 Acute Upper Respiratory Infections Of Unspecified Site 07/02/2009 SALGUERO DO, LADONNA K 780.4 Dizziness And Giddiness 07/02/2009 SALGUERO DO, LADONNA K 465.9 Acute Upper Respiratory Infections Of Unspecified Site 07/02/2009 SALGUERO DO, LADONNA K 780.4 Dizziness And Giddiness 07/02/2009 MADL OTOLARYNGOLOGY TEACHER, ETELVINA L 465 .9 Acute Upper Respiratory Infections Of Unspecified Site 07/02/2009 MADL OTOLARYNGOLOGY TEACHER, ETELVINA L 780 .4 Dizziness And Giddiness 07/02/2009 MADL OTOLARYNGOLOGY TEACHER, ETELVINA L 465 .9 Acute Upper Respiratory Infections Of Unspecified Site 07/02/2009 MADL OTOLARYNGOLOGY TEACHER, ETELVINA L 780 .4 Dizziness And Giddiness 07/02/2009 MADL OTOLARYNGOLOGY TEACHER, ETELVINA L 465 .9 Acute Upper Respiratory Infections Of Unspecified Site 07/02/2009 MADL OTOLARYNGOLOGY TEACHER, ETELVINA L 780 .4 Dizziness And Giddiness 07/02/2009 MADL OTOLARYNGOLOGY TEACHER, ETELVINA L 465 .9 Acute Upper Respiratory Infections Of Unspecified Site 07/02/2009 MADL OTOLARYNGOLOGY TEACHER, ETELVINA L 780 .4 Dizziness And Giddiness 07/02/2009 MADL OTOLARYNGOLOGY TEACHER, ETELVINA L 465 .9 Acute Upper Respiratory Infections Of Unspecified Site 07/02/2009 MADL OTOLARYNGOLOGY TEACHER, ETELVINA L 780 .4 Dizziness And Giddiness 07/02/2009 MADL OTOLARYNGOLOGY TEACHER, ETELVINA L 465 .9 Acute Upper Respiratory Infections Of Unspecified Site 07/02/2009 MADL OTOLARYNGOLOGY TEACHER, ETELVINA L 780 .4 Dizziness And Giddiness 07/02/2009 MADL OTOLARYNGOLOGY TEACHER, ETELVINA L 465 .9 Acute Upper Respiratory Infections Of Unspecified Site 07/02/2009 MADL OTOLARYNGOLOGY TEACHER, ETELVINA L 780 .4 Dizziness And Giddiness 07/02/2009 SALGUERO DO, LADONNA K 465.9 Acute Upper Respiratory Infections Of Unspecified Site 07/02/2009 SALGUERO DO, LADONNA K 780.4 Dizziness And Giddiness 07/02/2009 SALGUERO DO, LADONNA K 465.9 Acute Upper Respiratory Infections Of Unspecified Site 07/02/2009 SALGUERO DO, LADONNA K 780.4 Dizziness And Giddiness 07/02/2009 MADL OTOLARYNGOLOGY TEACHER, ETELVINA L 465 .9 Acute Upper Respiratory Infections Of Unspecified Site 07/02/2009 MADL OTOLARYNGOLOGY TEACHER, ETELVINA L 780 .4 Dizziness And Giddiness 07/02/2009 SALGUERO DO, LADONNA K 465.9 Acute Upper Respiratory Infections Of Unspecified Site 07/02/2009 SALGUERO DO, LADONNA K 780.4 Dizziness And Giddiness 07/02/2009 MADL OTOLARYNGOLOGY TEACHER, ETELVINA L 465 .9 Acute Upper Respiratory Infections Of Unspecified Site 07/02/2009 MADL OTOLARYNGOLOGY TEACHER, ETELVINA L 780 .4 Dizziness And Giddiness 08/10/2009 PALOMA MORA APRNNDA S 780.52 INSOMNIA UNSPECIFIED 08/10/2009 PALOMA MORA APRNNDA S 783.1 Abnormal Weight Gain 08/10/2009 780.52 Ins omnia Unspecified 08/10/2009 783.1 Abno rmal Weight Gain 08/10/2009 PALOMA MORA APRNNDA S 780.52 Insomnia Unspecified 08/10/2009 SUSHANT MORA APRNA S 783.1 Abnormal Weight Gain 08/10/2009 PALOMA MORA APRNNDA S 780.52 Insomnia Unspecified 08/10/2009 PALOMA MORA APRNNDA S 783.1 Abnormal Weight Gain 08/10/2009 ROMELIA FISCHER MD 780. 52 Insomnia Unspecified 08/10/2009 ROMELIA FISCHER MD 783. 1 Abnormal Weight Gain 08/10/2009 BYRON BOSS MD 780.52 Insomnia Unspecified 08/10/2009 BYRON BOSS MD 783.1 Abnormal Weight Gain 08/10/2009 780.52 Ins omnia Unspecified 08/10/2009 783.1 Abno rmal Weight Gain 08/10/2009 780.52 Ins omnia Unspecified 08/10/2009 783.1 Abno rmal Weight Gain 08/10/2009 780.52 Ins omnia Unspecified 08/10/2009 783.1 Abno rmal Weight Gain 08/10/2009 780.52 Ins omnia Unspecified 08/10/2009 783.1 Abno rmal Weight Gain 08/10/2009 BYRON BOSS MD 780.52 [...] K 783.1 Abnormal Weight Gain 08/10/2009 MADL OTOLARYNGOLOGY TEACHER, ETELVINA L 780 .52 Insomnia Unspecified 08/10/2009 MADL OTOLARYNGOLOGY TEACHER, ETELVINA L 783 .1 Abnormal Weight Gain 08/10/2009 MADL OTOLARYNGOLOGY TEACHER, ETELVINA L 780 .52 Insomnia Unspecified 08/10/2009 MADL OTOLARYNGOLOGY TEACHER, ETELVINA L 783 .1 Abnormal Weight Gain 08/10/2009 MADL OTOLARYNGOLOGY TEACHER, ETELVINA L 780 .52 Insomnia Unspecified 08/10/2009 MADL OTOLARYNGOLOGY TEACHER, ETELVINA L 783 .1 Abnormal Weight Gain 08/10/2009 SALGUERO DO, LADONNA K 780.52 Insomnia Unspecified 08/10/2009 SALGUERO DO, LADONNA K 783.1 Abnormal Weight Gain 08/10/2009 SALGUERO DO, LADONNA K 780.52 Insomnia Unspecified 08/10/2009 SALGUERO DO, LADONNA K 783.1 Abnormal Weight Gain 08/10/2009 MADL OTOLARYNGOLOGY TEACHER, ETELVINA L 780 .52 Insomnia Unspecified 08/10/2009 MADL OTOLARYNGOLOGY TEACHER, ETELVNIA L 783 .1 Abnormal Weight Gain 08/10/2009 MADL OTOLARYNGOLOGY TEACHER, ETELVINA L 780 .52 Insomnia Unspecified 08/10/2009 MADL OTOLARYNGOLOGY TEACHER, ETELVINA L 783 .1 Abnormal Weight Gain 08/10/2009 MADL OTOLARYNGOLOGY TEACHER, ETELVINA L 780 .52 Insomnia Unspecified 08/10/2009 MADL OTOLARYNGOLOGY TEACHER, ETELVINA L 783 .1 Abnormal Weight Gain 08/10/2009 MADL OTOLARYNGOLOGY TEACHER, ETELVINA L 780 .52 Insomnia Unspecified 08/10/2009 MADL OTOLARYNGOLOGY TEACHER, ETELVINA L 783 .1 Abnormal Weight Gain 08/10/2009 MADL OTOLARYNGOLOGY TEACHER, ETELVINA L 780 .52 Insomnia Unspecified 08/10/2009 MADL OTOLARYNGOLOGY TEACHER, ETELVINA L 783 .1 Abnormal Weight Gain 08/10/2009 MADL OTOLARYNGOLOGY TEACHER, ETELVINA L 780 .52 Insomnia Unspecified 08/10/2009 MADL OTOLARYNGOLOGY TEACHER, ETELVINA L 783 .1 Abnormal Weight Gain 08/10/2009 MADL OTOLARYNGOLOGY TEACHER, ETELVINA L 780 .52 Insomnia Unspecified 08/10/2009 MADL OTOLARYNGOLOGY TEACHER, ETELVINA L 783 .1 Abnormal Weight Gain 08/10/2009 SALGUERO DO, LADONNA K 780.52 Insomnia Unspecified 08/10/2009 SALGUERO DO, LADONNA K 783.1 Abnormal Weight Gain 08/10/2009 SALGUERO DO, LADONNA K 780.52 Insomnia Unspecified 08/10/2009 SALGUERO DO, LADONNA K 783.1 Abnormal Weight Gain 08/10/2009 MADL OTOLARYNGOLOGY TEACHER, ETELVINA L 780 .52 Insomnia Unspecified 08/10/2009 MADL OTOLARYNGOLOGY TEACHER, ETELVINA L 783 .1 Abnormal Weight Gain 08/10/2009 SALGUERO DOTEREA K 780.52 Insomnia Unspecified 08/10/2009 SALGUERO DO, LADONNA K 783.1 Abnormal Weight Gain 08/10/2009 HUGOL ETELVINA HARRIS L 780 .52 Insomnia Unspecified 08/10/2009 MADL ETELVINA HARRIS L 783 .1 Abnormal Weight Gain 09/04/2009 MORGAN HARRIS LAURIE S 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 09/04/2009 MORGAN HARRIS, LAURIE S 780.79 Feelings Of Weakness 09/04/2009 MORGAN HARRIS, LAURIE S 786.05 shortness of breath 09/04/2009 MORGAN HARRIS LAURIE S 786.2 Cough 09/04/2009 307.40 Non organic Sleep Disorders 09/04/2009 780.79 Fee lings Of Weakness 09/04/2009 786.05 Marli rtness Of Breath 09/04/2009 786.2 Cough 09/04/2009 MORGAN HARRIS LAURIE S 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 09/04/2009 MORGNA HARRIS LAURIE S 780.79 Feelings Of Weakness 09/04/2009 MORGAN HARRIS LAURIE S 786.05 Shortness Of Breath 09/04/2009 MORGAN HARRIS LAURIE S 786.2 Cough 09/04/2009 MORGAN HARRIS LAURIE S 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 09/04/2009 MORGAN HARRIS LAURIE S 780.79 Feelings Of Weakness 09/04/2009 MORGAN HARRIS LAURIE S 786.05 Shortness Of Breath 09/04/2009 MORGAN HARRIS LAURIE S 786.2 Cough 09/04/2009 ROMELIA FISCHER MD 307. 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 09/04/2009 ROMELIA FISCHER MD 780. 79 Feelings Of Weakness 09/04/2009 ROMELIA FISCHER MD 786. 05 Shortness Of Breath 09/04/2009 ROMELIA FISCHER MD 786. 2 Cough 09/04/2009 BYRON BOSS MD 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 09/04/2009 BYRON BOSS MD 780.79 Feelings Of Weakness 09/04/2009 BYRON BOSS MD 786.05 Shortness Of Breath 09/04/2009 BYRON BOSS MD 786.2 Cough 09/04/2009 307.40 Non organic Sleep Disorders 09/04/2009 780.79 Fee lings Of Weakness 09/04/2009 786.05 Marli rtness Of Breath 09/04/2009 786.2 Cough 09/04/2009 307.40 Non organic Sleep Disorders 09/04/2009 780.79 Fee lings Of Weakness 09/04/2009 786.05 Marli rtness Of Breath 09/04/2009 786.2 Cough 09/04/2009 307.40 Non organic Sleep Disorders 09/04/2009 780.79 Fee lings Of Weakness 09/04/2009 786.05 Marli rtness Of Breath 09/04/2009 786.2 Cough 09/04/2009 307.40 Non organic Sleep Disorders 09/04/2009 780.79 Fee lings Of Weakness 09/04/2009 786.05 Marli rtness Of Breath 09/04/2009 786.2 Cough 09/04/2009 BYRON [...] DO, LADONNA K 786.2 Cough 09/04/2009 MADL OTOLARYNGOLOGY TEACHER, ETELVINA L 307 .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 09/04/2009 MADL OTOLARYNGOLOGY TEACHER, ETELVINA L 780 .79 Feelings Of Weakness 09/04/2009 MADL OTOLARYNGOLOGY TEACHER, ETELVINA L 786 .05 Shortness Of Breath 09/04/2009 MADL OTOLARYNGOLOGY TEACHER, ETELVINA L 786 .2 Cough 09/04/2009 MADL OTOLARYNGOLOGY TEACHER, ETELVINA L 307 .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 09/04/2009 MADL OTOLARYNGOLOGY TEACHER, ETELVINA L 780 .79 Feelings Of Weakness 09/04/2009 MADL OTOLARYNGOLOGY TEACHER, ETELVINA L 786 .05 Shortness Of Breath 09/04/2009 MADL OTOLARYNGOLOGY TEACHER, ETELVINA L 786 .2 Cough 09/04/2009 MADL OTOLARYNGOLOGY TEACHER, ETELVINA L 307 .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 09/04/2009 MADL OTOLARYNGOLOGY TEACHER, ETELVINA L 780 .79 Feelings Of Weakness 09/04/2009 MADL OTOLARYNGOLOGY TEACHER, ETELVINA L 786 .05 Shortness Of Breath 09/04/2009 MADL OTOLARYNGOLOGY TEACHER, ETELVINA L 786 .2 Cough 09/04/2009 SALGUERO DO, LADONAN K 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 09/04/2009 SALGUERO [...] DO, LADONNA K 786.2 Cough 09/04/2009 MADL OTOLARYNGOLOGY TEACHER, ETELVINA L 307 .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 09/04/2009 MADL OTOLARYNGOLOGY TEACHER, ETELVINA L 780 .79 Feelings Of Weakness 09/04/2009 MADL OTOLARYNGOLOGY TEACHER, ETELVINA L 786 .05 Shortness Of Breath 09/04/2009 MADL OTOLARYNGOLOGY TEACHER, ETELVINA L 786 .2 Cough 09/04/2009 MADL OTOLARYNGOLOGY TEACHER, ETELVINA L 307 .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 09/04/2009 MADL OTOLARYNGOLOGY TEACHER, ETELVINA L 780 .79 Feelings Of Weakness 09/04/2009 MADL OTOLARYNGOLOGY TEACHER, ETELVINA L 786 .05 Shortness Of Breath 09/04/2009 MADL OTOLARYNGOLOGY TEACHER, ETELVINA L 786 .2 Cough 09/04/2009 MADL OTOLARYNGOLOGY TEACHER, ETELVINA L 307 .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 09/04/2009 MADL OTOLARYNGOLOGY TEACHER, ETELVINA L 780 .79 Feelings Of Weakness 09/04/2009 MADL OTOLARYNGOLOGY TEACHER, ETELVINA L 786 .05 Shortness Of Breath 09/04/2009 MADL OTOLARYNGOLOGY TEACHER, ETELVINA L 786 .2 Cough 09/04/2009 MADL OTOLARYNGOLOGY TEACHER, ETELVINA L 307 .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 09/04/2009 MADL OTOLARYNGOLOGY TEACHER, ETELVINA L 780 .79 Feelings Of Weakness 09/04/2009 MADL OTOLARYNGOLOGY TEACHER, ETELVINA L 786 .05 Shortness Of Breath 09/04/2009 MADL OTOLARYNGOLOGY TEACHER, ETELVINA L 786 .2 Cough 09/04/2009 MADL OTOLARYNGOLOGY TEACHER, ETELVINA L 307 .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 09/04/2009 MADL OTOLARYNGOLOGY TEACHER, ETELVINA L 780 .79 Feelings Of Weakness 09/04/2009 MADL OTOLARYNGOLOGY TEACHER, ETELVINA L 786 .05 Shortness Of Breath 09/04/2009 MADL OTOLARYNGOLOGY TEACHER, ETELVINA L 786 .2 Cough 09/04/2009 MADL OTOLARYNGOLOGY TEACHER, ETELVINA L 307 .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 09/04/2009 MADL OTOLARYNGOLOGY TEACHER, ETELVINA L 780 .79 Feelings Of Weakness 09/04/2009 MADL OTOLARYNGOLOGY TEACHER, ETELVINA L 786 .05 Shortness Of Breath 09/04/2009 MADL OTOLARYNGOLOGY TEACHER, ETELVINA L 786 .2 Cough 09/04/2009 MADL OTOLARYNGOLOGY TEACHER, ETELVINA L 307 .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 09/04/2009 MADL OTOLARYNGOLOGY TEACHER, ETELVINA L 780 .79 Feelings Of Weakness 09/04/2009 MADL OTOLARYNGOLOGY TEACHER, ETELVINA L 786 .05 Shortness Of Breath 09/04/2009 MADL OTOLARYNGOLOGY TEACHER, ETELVINA L 786 .2 Cough 09/04/2009 SALGUERO DO, LADONNA K 307.40 [...] DO, LADONNA K 786.2 Cough 09/04/2009 MADL OTOLARYNGOLOGY TEACHER, ETELVINA L 307 .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 09/04/2009 MADL OTOLARYNGOLOGY TEACHER, ETELVINA L 780 .79 Feelings Of Weakness 09/04/2009 MADL OTOLARYNGOLOGY TEACHER, ETELVINA L 786 .05 Shortness Of Breath 09/04/2009 MADL OTOLARYNGOLOGY TEACHER, ETELVINA L 786 .2 Cough 09/04/2009 SALGUERO DO, LADONNA K 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 09/04/2009 SALGUERO DO, LADONNA K 780.79 Feelings Of Weakness 09/04/2009 SALGUERO DO, LADONNA K 786.05 Shortness Of Breath 09/04/2009 SALGUERO DO, LADONNA K 786.2 Cough 09/04/2009 MADL OTOLARYNGOLOGY TEACHER, ETELVINA L 307 .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 09/04/2009 MADL OTOLARYNGOLOGY TEACHER, ETELVINA L 780 .79 Feelings Of Weakness 09/04/2009 MADL OTOLARYNGOLOGY TEACHER, ETELVINA L 786 .05 Shortness Of Breath 09/04/2009 MADL OTOLARYNGOLOGY TEACHER, ETELVINA L 786 .2 Cough 09/07/2009 MORGAN HUDSONN, LAURIE S 079.99 Viral Syndrome 09/07/2009 079.99 Vir al Syndrome 09/07/2009 MORGAN OTOLARYNGOLOGY TEACHER, LAURIE S 079.99 Viral Syndrome 09/07/2009 MORGAN OTOLARYNGOLOGY TEACHER, LAURIE S 079.99 Viral Syndrome 09/07/2009 AMADO OLVERA, ROMELIA 079. 99 Viral Syndrome 09/07/2009 KARYN OLVERA, BYRON Bruner 079.99 Viral Syndrome 09/07/2009 079.99 Vir al Syndrome 09/07/2009 079.99 Vir al Syndrome 09/07/2009 079.99 Vir al Syndrome 09/07/2009 079.99 Vir al Syndrome 09/07/2009 BYRON BOSS MD 079.99 Viral Syndrome 09/07/2009 KARYN OLVERA, BYRON Bruner 079.99 Viral Syndrome 09/07/2009 SALGUERO DOLADONNA K 079.99 Viral Syndrome 09/07/2009 KARYN OLVERA, BYRON Bruner 079.99 Viral Syndrome 09/07/2009 SALGUERO DOLADONNA K 079.99 Viral Syndrome 09/07/2009 KARYN OLVERA, BYRON Bruner 079.99 Viral Syndrome 09/07/2009 BYRON BOSS MD 079.99 Viral Syndrome 09/07/2009 SALGUERO DOTEREA K 079.99 Viral Syndrome 09/07/2009 SALGUERO DOTEREA K 079.99 Viral Syndrome 09/07/2009 SALGUERO DO, LADONNA K 079.99 Viral Syndrome 09/07/2009 SALGUERO DO, LADONNA K 079.99 Viral Syndrome 09/07/2009 MADL OTOLARYNGOLOGY TEACHER, ETELVINA L 079 .99 Viral Syndrome 09/07/2009 MADL OTOLARYNGOLOGY TEACHER, ETELVINA L 079 .99 Viral Syndrome 09/07/2009 MADL OTOLARYNGOLOGY TEACHER, ETELVINA L 079 .99 Viral Syndrome 09/07/2009 SALGUERO DO, LADONNA K 079.99 Viral Syndrome 09/07/2009 SALGUERO DO, LADONNA K 079.99 Viral Syndrome 09/07/2009 MADL OTOLARYNGOLOGY TEACHER, ETELVINA L 079 .99 Viral Syndrome 09/07/2009 MADL OTOLARYNGOLOGY TEACHER, ETELVINA L 079 .99 Viral Syndrome 09/07/2009 MADL OTOLARYNGOLOGY TEACHER, ETELVINA L 079 .99 Viral Syndrome 09/07/2009 MADL OTOLARYNGOLOGY TEACHER, ETELVINA L 079 .99 Viral Syndrome 09/07/2009 MADL OTOLARYNGOLOGY TEACHER, ETELVINA L 079 .99 Viral Syndrome 09/07/2009 MADL OTOLARYNGOLOGY TEACHER, ETELVINA L 079 .99 Viral Syndrome 09/07/2009 MADL OTOLARYNGOLOGY TEACHER, ETELVINA L 079 .99 Viral Syndrome 09/07/2009 SALGUERO DO LADONNA K 079.99 Viral Syndrome 09/07/2009 SALGUREO DO LADONNA K 079.99 Viral Syndrome 09/07/2009 MADL OTOLARYNGOLOGY TEACHER, ETELVINA L 079 .99 Viral Syndrome 09/07/2009 LADONNA SALGUERO DO K 079.99 Viral Syndrome 09/07/2009 MADL OTOLARYNGOLOGY TEACHER, ETELVINA L 079 .99 Viral Syndrome 10/12/2009 SUSHANT MORA APRNA S 719.58 Stiffness Of Joint, Not Elsewhere Classified, Other Sp ecified Sites 10/12/2009 SUSHANT MORA APRNA S 799.02 Hypoxemia 10/12/2009 719.58 Sti ffness Of Joint, Not Elsewhere Classified, Other Specified Sites 10/12/2009 799.02 Hyp oxemia 10/12/2009 SUSHANT MORA APRNA S 719.58 Stiffness Of Joint, Not Elsewhere Classified, Other Sp ecified Sites 10/12/2009 SUSHANT MORA APRNA S 799.02 Hypoxemia 10/12/2009 SUSHANT MORA APRNA S 719.58 Stiffness Of Joint, Not Elsewhere Classified, Other Sp ecified Sites 10/12/2009 SUSHANT MORA APRNA S 799.02 Hypoxemia 10/12/2009 ROMELIA FISCHER MD 719. 58 Stiffness Of Joint, Not Elsewhere Classified, Other Specified Sites 10/12/2009 ROMELIA FISCHER MD 799. 02 Hypoxemia 10/12/2009 BYRON BOSS MD 719.58 Stiffness Of Joint, Not Elsewhere Classi fied, Other Specified Sites 10/12/2009 BYRON BOSS MD 799.02 Hypoxemia 10/12/2009 719.58 Sti ffness Of Joint, Not Elsewhere Classified, Other Specified Sites 10/12/2009 799.02 Hyp oxemia 10/12/2009 719.58 Sti ffness Of Joint, Not Elsewhere Classified, Other Specified Sites 10/12/2009 799.02 Hyp oxemia 10/12/2009 719.58 Sti ffness Of Joint, Not Elsewhere Classified, Other Specified Sites 10/12/2009 799.02 Hyp oxemia 10/12/2009 719.58 Sti ffness Of Joint, Not Elsewhere Classified, Other Specified Sites 10/12/2009 799.02 Hyp oxemia 10/12/2009 BYRON BOSS MD 719.58 Stiffness Of Joint, Not Elsewhere Classi fied, Other Specified Sites 10/12/2009 BYRON BOSS MD 799.02 Hypoxemia 10/12/2009 BYRON BOSS MD 719.58 Stiffness Of Joint, Not Elsewhere Classi fied, Other Specified Sites 10/12/2009 BYRON BOSS MD 799.02 Hypoxemia 10/12/2009 LADONNA SALGUERO DO 719.58 Stiffness Of Joint, Not Elsewhere Classified, Other Specified Sites 10/12/2009 LADONNA SALGUERO DO 799.02 Hypoxemia 10/12/2009 BYRON BOSS MD 719.58 Stiffness Of Joint, Not Elsewhere Classi fied, Other Specified Sites 10/12/2009 BYRON BOSS MD 799.02 Hypoxemia 10/12/2009 LADONNA SALGUERO DO 719.58 Stiffness Of Joint, Not Elsewhere Classified, Other Specified Sites 10/12/2009 LADONNA SALGUERO DO 799.02 Hypoxemia 10/12/2009 BYRON BOSS MD 719.58 Stiffness Of Joint, Not Elsewhere Classi fied, Other Specified Sites 10/12/2009 BYRON BOSS MD 799.02 Hypoxemia 10/12/2009 BYRON BOSS MD 719.58 Stiffness Of Joint, Not Elsewhere Classi fied, Other Specified Sites 10/12/2009 BYRON BOSS MD 799.02 Hypoxemia 10/12/2009 LADONNA SALGUERO DO 719.58 Stiffness Of Joint, Not Elsewhere Classified, Other Specified Sites 10/12/2009 SALGUERO DO LADONNA K 799.02 Hypoxemia 10/12/2009 NOEMY DOLADONNA 719.58 Stiffness Of Joint, Not Elsewhere Classified, Other Specified Sites 10/12/2009 SALGUERO DO LADONNA K 799.02 Hypoxemia 10/12/2009 SALGUERO DOTEREA K 719.58 Stiffness Of Joint, Not Elsewhere Classified, Other Specified Sites 10/12/2009 SALGUERO DO LADONNA K 799.02 Hypoxemia 10/12/2009 SALGUERO DO LADONNA K 719.58 Stiffness Of Joint, Not Elsewhere Classified, Other Specified Sites 10/12/2009 SALGUERO DO LADONNA K 799.02 Hypoxemia 10/12/2009 ETELVINA LEONARD APRN 719 .58 Stiffness Of Joint, Not Elsewhere Classified, Other Specified Sites 10/12/2009 MADL OTOLARYNGOLOGY TEACHER, ETELVINA L 799 .02 Hypoxemia 10/12/2009 MADL OTOLARYNGOLOGY TEACHER, ETELVINA L 719 .58 Stiffness Of Joint, Not Elsewhere Classified, Other Specified Sites 10/12/2009 MADL OTOLARYNGOLOGY TEACHER, ETELVINA L 799 .02 Hypoxemia 10/12/2009 MADL OTOLARYNGOLOGY TEACHER, ETELVINA L 719 .58 Stiffness Of Joint, Not Elsewhere Classified, Other Specified Sites 10/12/2009 MADL OTOLARYNGOLOGY TEACHER, ETELVINA L 799 .02 Hypoxemia 10/12/2009 SALGUERO DO, LADONNA K 719.58 Stiffness Of Joint, Not Elsewhere Classified, Other Specified Sites 10/12/2009 SALGUERO DO, LADONNA K 799.02 Hypoxemia 10/12/2009 SALGUERO DO, LADONNA K 719.58 Stiffness Of Joint, Not Elsewhere Classified, Other Specified Sites 10/12/2009 SALGUERO DO, LADONNA K 799.02 Hypoxemia 10/12/2009 MADL OTOLARYNGOLOGY TEACHER, ETELVINA L 719 .58 Stiffness Of Joint, Not Elsewhere Classified, Other Specified Sites 10/12/2009 MADL OTOLARYNGOLOGY TEACHER, ETELVINA L 799 .02 Hypoxemia 10/12/2009 MADL OTOLARYNGOLOGY TEACHER, ETELVINA L 719 .58 Stiffness Of Joint, Not Elsewhere Classified, Other Specified Sites 10/12/2009 MADL OTOLARYNGOLOGY TEACHER, ETELVINA L 799 .02 Hypoxemia 10/12/2009 MADL OTOLARYNGOLOGY TEACHER, ETELVINA L 719 .58 Stiffness Of Joint, Not Elsewhere Classified, Other Specified Sites 10/12/2009 MADL OTOLARYNGOLOGY TEACHER, ETELVINA L 799 .02 Hypoxemia 10/12/2009 MADL OTOLARYNGOLOGY TEACHER, ETELVINA L 719 .58 Stiffness Of Joint, Not Elsewhere Classified, Other Specified Sites 10/12/2009 MADL OTOLARYNGOLOGY TEACHER, ETELVINA L 799 .02 Hypoxemia 10/12/2009 MADL OTOLARYNGOLOGY TEACHER, ETELVINA L 719 .58 Stiffness Of Joint, Not Elsewhere Classified, Other Specified Sites 10/12/2009 MADL OTOLARYNGOLOGY TEACHER, ETELVINA L 799 .02 Hypoxemia 10/12/2009 MADL OTOLARYNGOLOGY TEACHER, ETELVINA L 719 .58 Stiffness Of Joint, Not Elsewhere Classified, Other Specified Sites 10/12/2009 MADL OTOLARYNGOLOGY TEACHER, ETELVINA L 799 .02 Hypoxemia 10/12/2009 MADL OTOLARYNGOLOGY TEACHER, ETELVINA L 719 .58 Stiffness Of Joint, Not Elsewhere Classified, Other Specified Sites 10/12/2009 MADL HAMMAD HARRISA L 799 .02 Hypoxemia 10/12/2009 SALGUERO DO LADONNA K 719.58 Stiffness Of Joint, Not Elsewhere Classified, Other Specified Sites 10/12/2009 SALGUERO DO, LADONNA K 799.02 Hypoxemia 10/12/2009 SALGUERO DO, LADONNA K 719.58 Stiffness Of Joint, Not Elsewhere Classified, Other Specified Sites 10/12/2009 SALGUERO DO, LADONNA K 799.02 Hypoxemia 10/12/2009 MADL OTOLARYNGOLOGY TEACHERHAMMADA L 719 .58 Stiffness Of Joint, Not Elsewhere Classified, Other Specified Sites 10/12/2009 MADL OTOLARYNGOLOGY TEACHERANDREZETELVINA L 799 .02 Hypoxemia 10/12/2009 SALGUERO DO, LADONNA K 719.58 Stiffness Of Joint, Not Elsewhere Classified, Other Specified Sites 10/12/2009 SALGUERO DO, LADONNA K 799.02 Hypoxemia 10/12/2009 HAMMAD LEONARD APRNA L 719 .58 Stiffness Of Joint, Not Elsewhere Classified, Other Specified Sites 10/12/2009 MADL OTOLARYNGOLOGY TEACHERSARAETELVINA L 799 .02 Hypoxemia 11/07/2009 PALOMA MORA APRNNDA S 300.00 ANXIETY UNSPEC 11/07/2009 PALOMA MORA APRNNDA S 305.1 NICOTINE DEPENDENCE - CONTINUOUS 11/07/2009 300.00 Anx iety Unspec 11/07/2009 305.1 JIM AZIZA DEPENDENCE - CONTINUOUS 11/07/2009 MORGAN HARRIS LAURIE S 300.00 Anxiety Unspec 11/07/2009 PALOMA MORA APRNNDA S 305.1 NICOTINE DEPENDENCE - CONTINUOUS 11/07/2009 PALOMA MORA APRNNDA S 300.00 Anxiety Unspec 11/07/2009 MORGAN HARRIS LAURIE S 305.1 NICOTINE DEPENDENCE - CONTINUOUS 11/07/2009 ROMELIA FISCHER MD 300. 00 Anxiety Unspec 11/07/2009 ROMELIA FISCHER MD 305. 1 NICOTINE DEPENDENCE - CONTINUOUS 11/07/2009 BYRON BOSS MD 300.00 Anxiety Unspec 11/07/2009 BYRON BOSS MD 305.1 NICOTINE DEPENDENCE - CONTINUOUS 11/07/2009 300.00 Anx iety Unspec 11/07/2009 305.1 JIM AZIZA DEPENDENCE - CONTINUOUS 11/07/2009 300.00 Anx iety Unspec 11/07/2009 305.1 JIM AZIZA DEPENDENCE - CONTINUOUS 11/07/2009 300.00 Anx iety Unspec 11/07/2009 305.1 JIM AZIZA DEPENDENCE - CONTINUOUS 11/07/2009 300.00 Anx iety Unspec 11/07/2009 305.1 JIM AZIZA DEPENDENCE - CONTINUOUS 11/07/2009 BYRON BOSS MD 300.00 Anxiety Unspec 11/07/2009 BYRON BOSS MD M 305.1 NICOTINE DEPENDENCE - CONTINUOUS 11/07/2009 BYRON [...] M 305.1 NICOTINE DEPENDENCE - CONTINUOUS 11/07/2009 BYRON [...] 305.1 NICOTINE DEPENDENCE - CONTINUOUS 11/07/2009 MADL OTOLARYNGOLOGY TEACHER, ETELVINA L 300 .00 Anxiety Unspec 11/07/2009 MADL OTOLARYNGOLOGY TEACHER, ETELVINA L 305 .1 NICOTINE DEPENDENCE - CONTINUOUS 11/07/2009 MADL OTOLARYNGOLOGY TEACHER, ETELVINA L 300 .00 Anxiety Unspec 11/07/2009 MADL OTOLARYNGOLOGY TEACHER, ETELVINA L 305 .1 NICOTINE DEPENDENCE - CONTINUOUS 11/07/2009 MADL OTOLARYNGOLOGY TEACHER, ETELVINA L 300 .00 Anxiety Unspec 11/07/2009 MADL OTOLARYNGOLOGY TEACHER, ETELVINA L 305 .1 NICOTINE DEPENDENCE - CONTINUOUS 11/07/2009 SALGUERO DO, LADONNA K 300.00 Anxiety Unspec 11/07/2009 SALGUERO DO, LADONNA K 305.1 NICOTINE DEPENDENCE - CONTINUOUS 11/07/2009 SALGUERO DO, LADONNA K 300.00 Anxiety Unspec 11/07/2009 ASLGUERO DO, LADONNA K 305.1 NICOTINE DEPENDENCE - CONTINUOUS 11/07/2009 MADL OTOLARYNGOLOGY TEACHER, ETELVINA L 300 .00 Anxiety Unspec 11/07/2009 MADL OTOLARYNGOLOGY TEACHER, ETELVINA L 305 .1 NICOTINE DEPENDENCE - CONTINUOUS 11/07/2009 MADL OTOLARYNGOLOGY TEACHER, ETELVINA L 300 .00 Anxiety Unspec 11/07/2009 MADL OTOLARYNGOLOGY TEACHER, ETELVINA L 305 .1 NICOTINE DEPENDENCE - CONTINUOUS 11/07/2009 MADL OTOLARYNGOLOGY TEACHER, ETELVINA L 300 .00 Anxiety Unspec 11/07/2009 MADL OTOLARYNGOLOGY TEACHER, ETELVINA L 305 .1 NICOTINE DEPENDENCE - CONTINUOUS 11/07/2009 MADL OTOLARYNGOLOGY TEACHER, ETELVINA L 300 .00 Anxiety Unspec 11/07/2009 MADL OTOLARYNGOLOGY TEACHER, ETELVINA L 305 .1 NICOTINE DEPENDENCE - CONTINUOUS 11/07/2009 MADL OTOLARYNGOLOGY TEACHER, ETELVINA L 300 .00 Anxiety Unspec 11/07/2009 MADL OTOLARYNGOLOGY TEACHER, ETELVINA L 305 .1 NICOTINE DEPENDENCE - CONTINUOUS 11/07/2009 MADL OTOLARYNGOLOGY TEACHER, ETELVINA L 300 .00 Anxiety Unspec 11/07/2009 MADL OTOLARYNGOLOGY TEACHER, ETELVINA L 305 .1 NICOTINE DEPENDENCE - CONTINUOUS 11/07/2009 MADL OTOLARYNGOLOGY TEACHER, ETELVINA L 300 .00 Anxiety Unspec 11/07/2009 MADL OTOLARYNGOLOGY TEACHER, ETELVINA L 305 .1 NICOTINE DEPENDENCE - CONTINUOUS 11/07/2009 SALGUERO DO, LADONNA K 300.00 Anxiety Unspec 11/07/2009 SALGUERO DO, LADONNA K 305.1 NICOTINE DEPENDENCE - CONTINUOUS 11/07/2009 SALGUERO DO, LADONNA K 300.00 Anxiety Unspec 11/07/2009 SALGUERO DO, LADONNA K 305.1 NICOTINE DEPENDENCE - CONTINUOUS 11/07/2009 MADL OTOLARYNGOLOGY TEACHER, ETELVINA L 300 .00 Anxiety Unspec 11/07/2009 MADL OTOLARYNGOLOGY TEACHER, ETELVINA L 305 .1 NICOTINE DEPENDENCE - CONTINUOUS 11/07/2009 SALGUERO DO, LADONNA K 300.00 Anxiety Unspec 11/07/2009 SALGUERO DO, LADONNA K 305.1 NICOTINE DEPENDENCE - CONTINUOUS 11/07/2009 MADL OTOLARYNGOLOGY TEACHER, ETELVINA L 300 .00 Anxiety Unspec 11/07/2009 MADL OTOLARYNGOLOGY TEACHER, ETELVINA L 305 .1 NICOTINE DEPENDENCE - CONTINUOUS 01/31/2010 MORGAN OTOLARYNGOLOGY TEACHER, LAURIE S 719.43 Joint Pain, Localized In The Wrist 01/31/2010 MORGAN OTOLARYNGOLOGY TEACHER, LAURIE S 782.0 Numbness (hypesthesia) 01/31/2010 719.43 Cristiane nt Pain, Localized In The Wrist 01/31/2010 782.0 Numb ness (hypesthesia) 01/31/2010 MORGAN OTOLARYNGOLOGY TEACHER, LAURIE S 719.43 Joint Pain, Localized In The Wrist 01/31/2010 MORGAN OTOLARYNGOLOGY TEACHER, LAURIE S 782.0 Numbness (hypesthesia) 01/31/2010 MORGAN OTOLARYNGOLOGY TEACHER, LAURIE S 719.43 Joint Pain, Localized In The Wrist 01/31/2010 MORGAN OTOLARYNGOLOGY TEACHER, LAURIE S 782.0 Numbness (hypesthesia) 01/31/2010 ROMELIA FISCHER MD 719. 43 Joint Pain, Localized In The Wrist 01/31/2010 ROMELIA FISCHER MD 782. 0 Numbness (hypesthesia) 01/31/2010 BYRON BOSS MD 719.43 Joint Pain, Localized In The Wrist 01/31/2010 BYRON BOSS MD 782.0 Numbness (hypesthesia) 01/31/2010 719.43 Cristiane nt Pain, Localized In The Wrist 01/31/2010 782.0 Numb ness (hypesthesia) 01/31/2010 719.43 Cristiane nt Pain, Localized In The Wrist 01/31/2010 782.0 Numb ness (hypesthesia) 01/31/2010 719.43 Cristiane nt Pain, Localized In The Wrist 01/31/2010 782.0 Numb ness (hypesthesia) 01/31/2010 719.43 Cristiane nt Pain, Localized In The Wrist 01/31/2010 782.0 Numb ness (hypesthesia) 01/31/2010 BYRON BOSS MD 719.43 Joint [...] LADONNA K 782.0 Numbness (hypesthesia) 01/31/2010 BYRON OBSS MD 719.43 Joint Pain, Localized In The Wrist 01/31/2010 BYRON BOSS MD 782.0 Numbness (hypesthesia) 01/31/2010 BYRON BOSS MD 719.43 Joint Pain, Localized In The Wrist 01/31/2010 BYRON BOSS MD 782.0 Numbness (hypesthesia) 01/31/2010 SALGUERO DO LADONNA K 719.43 Joint Pain, Localized In The Wrist 01/31/2010 SALGUERO DO LADONNA K 782.0 Numbness (hypesthesia) 01/31/2010 SALGUERO DO LADONNA K 719.43 Joint Pain, Localized In The Wrist 01/31/2010 SALGUERO DO LADONNA K 782.0 Numbness (hypesthesia) 01/31/2010 SALGUERO DO LADONNA K 719.43 Joint Pain, Localized In The Wrist 01/31/2010 SALGUERO DO, LADONNA K 782.0 Numbness (hypesthesia) 01/31/2010 SALGUERO DO, LADONNA K 719.43 Joint Pain, Localized In The Wrist 01/31/2010 SALGUERO DO, LADONNA K 782.0 Numbness (hypesthesia) 01/31/2010 MADL OTOLARYNGOLOGY TEACHER, ETELVINA L 719 .43 Joint Pain, Localized In The Wrist 01/31/2010 MADL OTOLARYNGOLOGY TEACHER, ETELVINA L 782 .0 Numbness (hypesthesia) 01/31/2010 MADL OTOLARYNGOLOGY TEACHER, ETELVINA L 719 .43 Joint Pain, Localized In The Wrist 01/31/2010 MADL OTOLARYNGOLOGY TEACHER, ETELVINA L 782 .0 Numbness (hypesthesia) 01/31/2010 MADL OTOLARYNGOLOGY TEACHER, ETELVINA L 719 .43 Joint Pain, Localized In The Wrist 01/31/2010 MADL OTOLARYNGOLOGY TEACHER, ETELVINA L 782 .0 Numbness (hypesthesia) 01/31/2010 SALGUERO DO, LADONNA K 719.43 Joint Pain, Localized In The Wrist 01/31/2010 SALGUERO DO, LADONNA K 782.0 Numbness (hypesthesia) 01/31/2010 SALGUERO DO, LADONNA K 719.43 Joint Pain, Localized In The Wrist 01/31/2010 SALGUERO DO, LADONNA K 782.0 Numbness (hypesthesia) 01/31/2010 MADL OTOLARYNGOLOGY TEACHER, ETELVINA L 719 .43 Joint Pain, Localized In The Wrist 01/31/2010 MADL OTOLARYNGOLOGY TEACHER, ETELVINA L 782 .0 Numbness (hypesthesia) 01/31/2010 MADL OTOLARYNGOLOGY TEACHER, ETELVINA L 719 .43 Joint Pain, Localized In The Wrist 01/31/2010 MADL OTOLARYNGOLOGY TEACHER, ETELVINA L 782 .0 Numbness (hypesthesia) 01/31/2010 MADL OTOLARYNGOLOGY TEACHER, ETELVINA L 719 .43 Joint Pain, Localized In The Wrist 01/31/2010 MADL OTOLARYNGOLOGY TEACHER, ETELVINA L 782 .0 Numbness (hypesthesia) 01/31/2010 MADL OTOLARYNGOLOGY TEACHER, ETELVINA L 719 .43 Joint Pain, Localized In The Wrist 01/31/2010 MADL OTOLARYNGOLOGY TEACHER, ETELVINA L 782 .0 Numbness (hypesthesia) 01/31/2010 MADL OTOLARYNGOLOGY TEACHER, ETELVINA L 719 .43 Joint Pain, Localized In The Wrist 01/31/2010 MADL OTOLARYNGOLOGY TEACHER, ETELVINA L 782 .0 Numbness (hypesthesia) 01/31/2010 MADL OTOLARYNGOLOGY TEACHER, ETELVINA L 719 .43 Joint Pain, Localized In The Wrist 01/31/2010 MADL OTOLARYNGOLOGY TEACHER, ETELVINA L 782 .0 Numbness (hypesthesia) 01/31/2010 MADL OTOLARYNGOLOGY TEACHER, ETELVINA L 719 .43 Joint Pain, Localized In The Wrist 01/31/2010 MADL OTOLARYNGOLOGY TEACHER, ETELVINA L 782 .0 Numbness (hypesthesia) 01/31/2010 SALGUERO DO, LADONNA K 719.43 Joint Pain, Localized In The Wrist 01/31/2010 SALGUERO DO, LADONNA K 782.0 Numbness (hypesthesia) 01/31/2010 SALGUERO DO, LADONNA K 719.43 Joint Pain, Localized In The Wrist 01/31/2010 SALGUERO DO, LADONNA K 782.0 Numbness (hypesthesia) 01/31/2010 MADL OTOLARYNGOLOGY TEACHER, ETELVINA L 719 .43 Joint Pain, Localized In The Wrist 01/31/2010 MADL OTOLARYNGOLOGY TEACHER, ETELVINA L 782 .0 Numbness (hypesthesia) 01/31/2010 SALGUERO DO, LADONNA K 719.43 Joint Pain, Localized In The Wrist 01/31/2010 SALGUERO DO, LADONNA K 782.0 Numbness (hypesthesia) 01/31/2010 MADL OTOLARYNGOLOGY TEACHER, ETELVINA L 719 .43 Joint Pain, Localized In The Wrist 01/31/2010 MADL OTOLARYNGOLOGY TEACHER, ETELVINA L 782 .0 Numbness (hypesthesia) 03/14/2010 Ot 719.43 03/14/2010 Ot 782.0 03/14/2010 Ot V57.21 04/02/2010 LAURIE MORA APRN S 517.3 Acute Chest Syndrome 04/02/2010 517.3 Acut e Chest Syndrome 04/02/2010 LAURIE MORA APRN S 517.3 Acute Chest Syndrome 04/02/2010 LAURIE MORA APRN S 517.3 Acute Chest Syndrome 04/02/2010 AMADO OLVERA, ROMELIA 517. 3 Acute Chest Syndrome 04/02/2010 BYRON BOSS MD 517.3 Acute Chest Syndrome 04/02/2010 517.3 Acut e Chest Syndrome 04/02/2010 517.3 Acut e Chest Syndrome 04/02/2010 517.3 Acut e Chest Syndrome 04/02/2010 517.3 Acut e Chest Syndrome 04/02/2010 BYRON BOSS MD 517.3 Acute Chest Syndrome 04/02/2010 BYRON BOSS MD 517.3 Acute Chest Syndrome 04/02/2010 LADONNA SALGUERO DO K 517.3 Acute Chest Syndrome 04/02/2010 BYRON BOSS MD 517.3 Acute Chest Syndrome 04/02/2010 SALGUERO DO LADONNA K 517.3 Acute Chest Syndrome 04/02/2010 BYRON BOSS MD 517.3 Acute Chest Syndrome 04/02/2010 BYRON BOSS MD 517.3 Acute Chest Syndrome 04/02/2010 SALGUERO DO LADONNA K 517.3 Acute Chest Syndrome 04/02/2010 SALGUERO DO LADONNA K 517.3 Acute Chest Syndrome 04/02/2010 SALGUERO DO, LADONNA K 517.3 Acute Chest Syndrome 04/02/2010 SALGUERO DO, LADONNA K 517.3 Acute Chest Syndrome 04/02/2010 MADL OTOLARYNGOLOGY TEACHER, ETELVINA L 517 .3 Acute Chest Syndrome 04/02/2010 MADL OTOLARYNGOLOGY TEACHER, ETELVINA L 517 .3 Acute Chest Syndrome 04/02/2010 MADL OTOLARYNGOLOGY TEACHER, ETELVINA L 517 .3 Acute Chest Syndrome 04/02/2010 SALGUERO DO LADONNA K 517.3 Acute Chest Syndrome 04/02/2010 SALGUERO DO, LADONNA K 517.3 Acute Chest Syndrome 04/02/2010 MADL OTOLARYNGOLOGY TEACHER, ETELVINA L 517 .3 Acute Chest Syndrome 04/02/2010 MADL OTOLARYNGOLOGY TEACHER, ETELVINA L 517 .3 Acute Chest Syndrome 04/02/2010 MADL OTOLARYNGOLOGY TEACHER, ETELVINA L 517 .3 Acute Chest Syndrome 04/02/2010 MADL OTOLARYNGOLOGY TEACHER, ETELVINA L 517 .3 Acute Chest Syndrome 04/02/2010 MADL OTOLARYNGOLOGY TEACHER, ETELVINA L 517 .3 Acute Chest Syndrome 04/02/2010 MADL OTOLARYNGOLOGY TEACHER, ETELVINA L 517 .3 Acute Chest Syndrome 04/02/2010 MADL OTOLARYNGOLOGY TEACHER, ETELVINA L 517 .3 Acute Chest Syndrome 04/02/2010 LADONNA SALGUERO DO K 517.3 Acute Chest Syndrome 04/02/2010 SALGUERO TERE PRAKASHA K 517.3 Acute Chest Syndrome 04/02/2010 MADL OTOLARYNGOLOGY TEACHER, ETELVINA L 517 .3 Acute Chest Syndrome 04/02/2010 LADONNA SALGUERO DO K 517.3 Acute Chest Syndrome 04/02/2010 MADL OTOLARYNGOLOGY TEACHER, ETELVINA L 517 .3 Acute Chest Syndrome 04/14/2010 Ot 305.1 04/14/2010 Ot 491.21 04/14/2010 Ot 786.05 05/20/2010 MORGAN HARRIS LAURIE S 272.4 HYPERLIPIDEMIA 05/20/2010 MORGAN HARRIS LAURIE S 414.01 CAD 05/20/2010 272.4 HYPE RLIPIDEMIA 05/20/2010 414.01 CAD 05/20/2010 MORGAN HARRIS LAURIE S 272.4 HYPERLIPIDEMIA 05/20/2010 MORGAN HARRIS, LAURIE S 414.01 CAD 05/20/2010 MORGAN HARRIS, LAURIE S 272.4 HYPERLIPIDEMIA 05/20/2010 MORGAN HARRIS LAURIE S 414.01 CAD 05/20/2010 ROMELIA FISCHER MD 272. 4 HYPERLIPIDEMIA 05/20/2010 ROMELIA FISCHER MD 414. 01 CAD 05/20/2010 BYRON BOSS MD 272.4 HYPERLIPIDEMIA 05/20/2010 BYRON BOSS MD 414.01 CORONARY ARTERY STENOSIS MULTI-VESSEL 05/20/2010 272.4 HYPE RLIPIDEMIA 05/20/2010 414.01 COR ONARY ARTERY STENOSIS MULTI-VESSEL 05/20/2010 272.4 HYPE RLIPIDEMIA 05/20/2010 414.01 COR ONARY ARTERY STENOSIS MULTI-VESSEL 05/20/2010 272.4 HYPE RLIPIDEMIA 05/20/2010 414.01 COR ONARY ARTERY STENOSIS MULTI-VESSEL 05/20/2010 272.4 HYPE RLIPIDEMIA 05/20/2010 414.01 COR ONARY ARTERY STENOSIS MULTI-VESSEL 05/20/2010 BYRON BOSS MD 272.4 HYPERLIPIDEMIA 05/20/2010 KARYN MD, BYRON M 414.01 CORONARY ARTERY STENOSIS MULTI-VESSEL 05/20/2010 BYRON BOSS MD M 272.4 HYPERLIPIDEMIA 05/20/2010 BYRON BOSS MD 414.01 [...] 414.01 CORONARY ARTERY STENOSIS MULTI-VESSEL 05/20/2010 MADL OTOLARYNGOLOGY TEACHER, ETELVINA L 272 .4 HYPERLIPIDEMIA 05/20/2010 MADL OTOLARYNGOLOGY TEACHER, ETELVINA L 414 .01 CORONARY ARTERY STENOSIS MULTI-VESSEL 05/20/2010 MADL OTOLARYNGOLOGY TEACHER, ETELVINA L 272 .4 HYPERLIPIDEMIA 05/20/2010 MADL OTOLARYNGOLOGY TEACHER, ETELVINA L 414 .01 CORONARY ARTERY STENOSIS MULTI-VESSEL 05/20/2010 MADL OTOLARYNGOLOGY TEACHER, ETELVINA L 272 .4 HYPERLIPIDEMIA 05/20/2010 MADL OTOLARYNGOLOGY TEACHER, ETELVINA L 414 .01 CORONARY ARTERY STENOSIS MULTI-VESSEL 05/20/2010 SALGUERO DO, LADONNA K 272.4 HYPERLIPIDEMIA 05/20/2010 SALGUERO DO, LADONNA K 414.01 CORONARY ARTERY STENOSIS MULTI-VESSEL 05/20/2010 SALGUERO DO, LADONNA K 272.4 HYPERLIPIDEMIA 05/20/2010 SALGUERO DO, LADONNA K 414.01 CORONARY ARTERY STENOSIS MULTI-VESSEL 05/20/2010 MADL OTOLARYNGOLOGY TEACHER, ETELVINA L 272 .4 HYPERLIPIDEMIA 05/20/2010 MADL OTOLARYNGOLOGY TEACHER, ETELVINA L 414 .01 CORONARY ARTERY STENOSIS MULTI-VESSEL 05/20/2010 MADL OTOLARYNGOLOGY TEACHER, ETELVINA L 272 .4 HYPERLIPIDEMIA 05/20/2010 MADL OTOLARYNGOLOGY TEACHER, ETELVINA L 414 .01 CORONARY ARTERY STENOSIS MULTI-VESSEL 05/20/2010 MADL OTOLARYNGOLOGY TEACHER, ETELVINA L 272 .4 HYPERLIPIDEMIA 05/20/2010 MADL OTOLARYNGOLOGY TEACHER, ETELVINA L 414 .01 CORONARY ARTERY STENOSIS MULTI-VESSEL 05/20/2010 MADL OTOLARYNGOLOGY TEACHER, ETELVINA L 272 .4 HYPERLIPIDEMIA 05/20/2010 MADL OTOLARYNGOLOGY TEACHER, ETELVINA L 414 .01 CORONARY ARTERY STENOSIS MULTI-VESSEL 05/20/2010 MADL OTOLARYNGOLOGY TEACHER, ETELVINA L 272 .4 HYPERLIPIDEMIA 05/20/2010 MADL OTOLARYNGOLOGY TEACHER, ETELVINA L 414 .01 CORONARY ARTERY STENOSIS MULTI-VESSEL 05/20/2010 MADL OTOLARYNGOLOGY TEACHER, ETELVINA L 272 .4 HYPERLIPIDEMIA 05/20/2010 MADL OTOLARYNGOLOGY TEACHER, ETELVINA L 414 .01 CORONARY ARTERY STENOSIS MULTI-VESSEL 05/20/2010 MADL OTOLARYNGOLOGY TEACHER, ETELVINA L 272 .4 HYPERLIPIDEMIA 05/20/2010 MADL OTOLARYNGOLOGY TEACHER, ETELVINA L 414 .01 CORONARY ARTERY STENOSIS MULTI-VESSEL 05/20/2010 SALGUERO DO, LADONNA K 272.4 HYPERLIPIDEMIA 05/20/2010 SALGUERO DO, LADONNA K 414.01 CORONARY ARTERY STENOSIS MULTI-VESSEL 05/20/2010 SALGUERO DO, LADONNA K 272.4 HYPERLIPIDEMIA 05/20/2010 SALGUERO DO, LADONNA K 414.01 CORONARY ARTERY STENOSIS MULTI-VESSEL 05/20/2010 MADL OTOLARYNGOLOGY TEACHER, ETELVINA L 272 .4 HYPERLIPIDEMIA 05/20/2010 MADL OTOLARYNGOLOGY TEACHER, ETELVINA L 414 .01 CORONARY ARTERY STENOSIS MULTI-VESSEL 05/20/2010 SALGUERO DO, LADONNA K 272.4 HYPERLIPIDEMIA 05/20/2010 NOEMY PRAKASH LADONNA K 414.01 CORONARY ARTERY STENOSIS MULTI-VESSEL 05/20/2010 MADL OTOLARYNGOLOGY TEACHERETELVINA Bowser 272 .4 HYPERLIPIDEMIA 05/20/2010 MADL ETELVINA HARRIS L 414 .01 CORONARY ARTERY STENOSIS MULTI-VESSEL 05/26/2010 Ot 842.00 05/26/2010 Ot 959.3 05/26/2010 Ot E000.8 05/26/2010 Ot E013.9 05/26/2010 Ot E849.0 05/26/2010 Ot E917.9 07/31/2010 SUSHANT MORA APRNA S 356.9 UNSPECIFIED IDIOPATHIC PERIPHERAL NEUROPATHY 07/31/2010 356.9 UNSP ECIFIED IDIOPATHIC PERIPHERAL NEUROPATHY 07/31/2010 SUSHANT MORA APRNA S 356.9 UNSPECIFIED IDIOPATHIC PERIPHERAL NEUROPATHY 07/31/2010 SUSHANT MORA APRNA S 356.9 UNSPECIFIED IDIOPATHIC PERIPHERAL NEUROPATHY 07/31/2010 AMADO OLVERA, ROMELIA 356. 9 UNSPECIFIED IDIOPATHIC PERIPHERAL NEUROPATHY 07/31/2010 BYRON BOSS MD 356.9 UNSPECIFIED IDIOPATHIC PERIPHERAL NEUROPATHY 07/31/2010 356.9 UNSP ECIFIED IDIOPATHIC PERIPHERAL NEUROPATHY 07/31/2010 356.9 UNSP ECIFIED IDIOPATHIC PERIPHERAL NEUROPATHY 07/31/2010 356.9 UNSP ECIFIED IDIOPATHIC PERIPHERAL NEUROPATHY 07/31/2010 356.9 UNSP ECIFIED IDIOPATHIC PERIPHERAL NEUROPATHY 07/31/2010 BYRON BOSS MD 356.9 UNSPECIFIED IDIOPATHIC PERIPHERAL NEUROPATHY 07/31/2010 BYRON BOSS MD 356.9 UNSPECIFIED IDIOPATHIC PERIPHERAL NEUROPATHY 07/31/2010 TERE SALGUERO DOA K 356.9 UNSPECIFIED IDIOPATHIC PERIPHERAL NEUROPATHY 07/31/2010 BYRON BOSS MD 356.9 UNSPECIFIED IDIOPATHIC PERIPHERAL NEUROPATHY 07/31/2010 NOEMY PRAKASH LADONNA K 356.9 UNSPECIFIED IDIOPATHIC PERIPHERAL NEUROPATHY 07/31/2010 BYRON BOSS MD 356.9 UNSPECIFIED IDIOPATHIC PERIPHERAL NEUROPATHY 07/31/2010 BYRON BOSS MD 356.9 UNSPECIFIED IDIOPATHIC PERIPHERAL NEUROPATHY 07/31/2010 SALGUERO DO LADONNA K 356.9 UNSPECIFIED IDIOPATHIC PERIPHERAL NEUROPATHY 07/31/2010 NOEMY PRAKSAH LADONNA K 356.9 UNSPECIFIED IDIOPATHIC PERIPHERAL NEUROPATHY 07/31/2010 SALGUERO DO, LADONNA K 356.9 UNSPECIFIED IDIOPATHIC PERIPHERAL NEUROPATHY 07/31/2010 SALGUERO DO, LADONNA K 356.9 UNSPECIFIED IDIOPATHIC PERIPHERAL NEUROPATHY 07/31/2010 MADL OTOLARYNGOLOGY TEACHER, ETELVINA L 356 .9 UNSPECIFIED IDIOPATHIC PERIPHERAL NEUROPATHY 07/31/2010 MADL OTOLARYNGOLOGY TEACHER, ETELVINA L 356 .9 UNSPECIFIED IDIOPATHIC PERIPHERAL NEUROPATHY 07/31/2010 MADL OTOLARYNGOLOGY TEACHER, ETELVINA L 356 .9 UNSPECIFIED IDIOPATHIC PERIPHERAL NEUROPATHY 07/31/2010 SALGUERO DO, LADONNA K 356.9 UNSPECIFIED IDIOPATHIC PERIPHERAL NEUROPATHY 07/31/2010 SALGUERO DO, LADONNA K 356.9 UNSPECIFIED IDIOPATHIC PERIPHERAL NEUROPATHY 07/31/2010 MADL OTOLARYNGOLOGY TEACHER, ETELVINA L 356 .9 UNSPECIFIED IDIOPATHIC PERIPHERAL NEUROPATHY 07/31/2010 MADL OTOLARYNGOLOGY TEACHER, ETELVINA L 356 .9 UNSPECIFIED IDIOPATHIC PERIPHERAL NEUROPATHY 07/31/2010 MADL OTOLARYNGOLOGY TEACHER, ETELVINA L 356 .9 UNSPECIFIED IDIOPATHIC PERIPHERAL NEUROPATHY 07/31/2010 MADL OTOLARYNGOLOGY TEACHER, ETELVINA L 356 .9 UNSPECIFIED IDIOPATHIC PERIPHERAL NEUROPATHY 07/31/2010 MADL OTOLARYNGOLOGY TEACHER, ETELVINA L 356 .9 UNSPECIFIED IDIOPATHIC PERIPHERAL NEUROPATHY 07/31/2010 MADL OTOLARYNGOLOGY TEACHER, ETELVINA L 356 .9 UNSPECIFIED IDIOPATHIC PERIPHERAL NEUROPATHY 07/31/2010 MADL OTOLARYNGOLOGY TEACHER, ETELVINA L 356 .9 UNSPECIFIED IDIOPATHIC PERIPHERAL NEUROPATHY 07/31/2010 SALGUERO DO, LADONNA K 356.9 UNSPECIFIED IDIOPATHIC PERIPHERAL NEUROPATHY 07/31/2010 SALGUERO DO, LADONNA K 356.9 UNSPECIFIED IDIOPATHIC PERIPHERAL NEUROPATHY 07/31/2010 MADL OTOLARYNGOLOGY TEACHER, ETELVINA L 356 .9 UNSPECIFIED IDIOPATHIC PERIPHERAL NEUROPATHY 07/31/2010 SALGUERO DO, LADONNA K 356.9 UNSPECIFIED IDIOPATHIC PERIPHERAL NEUROPATHY 07/31/2010 MADL OTOLARYNGOLOGY TEACHER, ETELVINA L 356 .9 UNSPECIFIED IDIOPATHIC PERIPHERAL NEUROPATHY 08/01/2010 MORGAN OTOLARYNGOLOGY TEACHER, LAURIE S 791.0 Microalbuminuria 08/01/2010 791.0 Micr oalbuminuria 08/01/2010 MORGAN OTOLARYNGOLOGY TEACHER, LAURIE S 791.0 Microalbuminuria 08/01/2010 MORGAN OTOLARYNGOLOGY TEACHER, LAURIE S 791.0 Microalbuminuria 08/01/2010 AMADO OLVERA, ROMELIA 791. 0 Microalbuminuria 08/01/2010 KARYN OLVERA, BYRON M 791.0 Microalbuminuria 08/01/2010 791.0 Micr oalbuminuria 08/01/2010 791.0 Micr oalbuminuria 08/01/2010 791.0 Micr oalbuminuria 08/01/2010 791.0 Micr oalbuminuria 08/01/2010 KARYN OLVERA, BYRON M 791.0 Microalbuminuria 08/01/2010 KARYN OLVERA, BYRON Bruner 791.0 Microalbuminuria 08/01/2010 SALGUERO DO, LADONNA K 791.0 Microalbuminuria 08/01/2010 KARYN OLVERA, BYRON M 791.0 Microalbuminuria 08/01/2010 SALGUERO DO, LADONNA K 791.0 Microalbuminuria 08/01/2010 KARYN OLVERA, BYRON M 791.0 Microalbuminuria 08/01/2010 KARYN OLVERA, BYRON M 791.0 Microalbuminuria 08/01/2010 SALGUERO DO, LADONNA K 791.0 Microalbuminuria 08/01/2010 SALGUERO DO, LADONNA K 791.0 Microalbuminuria 08/01/2010 SALGUERO DO, LADONNA K 791.0 Microalbuminuria 08/01/2010 SALGUERO DO, LADONNA K 791.0 Microalbuminuria 08/01/2010 MADL OTOLARYNGOLOGY TEACHER, ETELVINA L 791 .0 Microalbuminuria 08/01/2010 MADL OTOLARYNGOLOGY TEACHER, ETELVINA L 791 .0 Microalbuminuria 08/01/2010 MADL OTOLARYNGOLOGY TEACHER, ETELVINA L 791 .0 Microalbuminuria 08/01/2010 SALGUERO DO, LADONNA K 791.0 Microalbuminuria 08/01/2010 SALGUERO DO, LADONNA K 791.0 Microalbuminuria 08/01/2010 MADL OTOLARYNGOLOGY TEACHER, ETELVINA L 791 .0 Microalbuminuria 08/01/2010 MADL OTOLARYNGOLOGY TEACHER, ETELVINA L 791 .0 Microalbuminuria 08/01/2010 MADL OTOLARYNGOLOGY TEACHER, ETELVINA L 791 .0 Microalbuminuria 08/01/2010 MADL OTOLARYNGOLOGY TEACHER, ETELVINA L 791 .0 Microalbuminuria 08/01/2010 MADL OTOLARYNGOLOGY TEACHER, ETELVINA L 791 .0 Microalbuminuria 08/01/2010 MADL OTOLARYNGOLOGY TEACHER, ETELVINA L 791 .0 Microalbuminuria 08/01/2010 MADL OTOLARYNGOLOGY TEACHER, ETELVINA L 791 .0 Microalbuminuria 08/01/2010 SALGUERO DO, LADONNA K 791.0 Microalbuminuria 08/01/2010 SALGUERO DO, LADONNA K 791.0 Microalbuminuria 08/01/2010 MADL OTOLARYNGOLOGY TEACHER, ETELVINA L 791 .0 Microalbuminuria 08/01/2010 SALGUERO DO, LADONNA K 791.0 Microalbuminuria 08/01/2010 MADL OTOLARYNGOLOGY TEACHER, ETELVINA L 791 .0 Microalbuminuria 08/05/2010 MORGAN OTOLARYNGOLOGY TEACHER, LAURIE S 721.0 CERVICAL SPONDYLOSIS WITHOUT MYELOPATHY 08/05/2010 721.0 Cerv ical Spondylosis Without Myelopathy 08/05/2010 MORGAN OTOLARYNGOLOGY TEACHER, LAURIE S 721.0 Cervical Spondylosis Without Myelopathy 08/05/2010 MORGAN OTOLARYNGOLOGY TEACHER, LAURIE S 721.0 Cervical Spondylosis Without Myelopathy 08/05/2010 AMADO OLVERA, ROMELIA 721. 0 Cervical Spondylosis Without Myelopathy 08/05/2010 BYRON BOSS MD 721.0 Cervical Spondylosis Without Myelopathy 08/05/2010 721.0 Cerv ical Spondylosis Without Myelopathy 08/05/2010 721.0 Cerv ical Spondylosis Without Myelopathy 08/05/2010 721.0 Cerv ical Spondylosis Without Myelopathy 08/05/2010 721.0 Cerv ical Spondylosis Without Myelopathy 08/05/2010 BYRON BOSS MD 721.0 Cervical Spondylosis Without Myelopathy 08/05/2010 BYRON BOSS MD 721.0 Cervical Spondylosis Without Myelopathy 08/05/2010 NOEMY PRAKASH LADONNA K 721.0 Cervical Spondylosis Without Myelopathy 08/05/2010 BYRON BOSS MD 721.0 Cervical Spondylosis Without Myelopathy 08/05/2010 TERE SALGUERO DOA K 721.0 Cervical Spondylosis Without Myelopathy 08/05/2010 BYRON BOSS MD 721.0 Cervical Spondylosis Without Myelopathy 08/05/2010 BYRON BOSS MD 721.0 Cervical Spondylosis Without Myelopathy 08/05/2010 SALGUERO DO, LADONNA K 721.0 Cervical Spondylosis Without Myelopathy 08/05/2010 NOEMY PRAKASH LADONNA K 721.0 Cervical Spondylosis Without Myelopathy 08/05/2010 SALGUERO DO, LADONNA K 721.0 Cervical Spondylosis Without Myelopathy 08/05/2010 SALGUERO DO, LADONNA K 721.0 Cervical Spondylosis Without Myelopathy 08/05/2010 MADL OTOLARYNGOLOGY TEACHER, ETELVINA L 721 .0 Cervical Spondylosis Without Myelopathy 08/05/2010 MADL OTOLARYNGOLOGY TEACHER, ETELVINA L 721 .0 Cervical Spondylosis Without Myelopathy 08/05/2010 MADL OTOLARYNGOLOGY TEACHER, ETELVINA L 721 .0 Cervical Spondylosis Without Myelopathy 08/05/2010 SALGUERO DO, LADONNA K 721.0 Cervical Spondylosis Without Myelopathy 08/05/2010 SALGUERO DO, LADONNA K 721.0 Cervical Spondylosis Without Myelopathy 08/05/2010 MADL OTOLARYNGOLOGY TEACHER, ETELVINA L 721 .0 Cervical Spondylosis Without Myelopathy 08/05/2010 MADL OTOLARYNGOLOGY TEACHER, ETELVINA L 721 .0 Cervical Spondylosis Without Myelopathy 08/05/2010 MADL OTOLARYNGOLOGY TEACHER, ETELVINA L 721 .0 Cervical Spondylosis Without Myelopathy 08/05/2010 MADL OTOLARYNGOLOGY TEACHER, ETELVINA L 721 .0 Cervical Spondylosis Without Myelopathy 08/05/2010 MADL OTOLARYNGOLOGY TEACHER, ETELVINA L 721 .0 Cervical Spondylosis Without Myelopathy 08/05/2010 MADL OTOLARYNGOLOGY TEACHER, ETELVINA L 721 .0 Cervical Spondylosis Without Myelopathy 08/05/2010 MADL OTOLARYNGOLOGY TEACHER, ETELVINA L 721 .0 Cervical Spondylosis Without Myelopathy 08/05/2010 SALGUERO DO, LADONNA K 721.0 Cervical Spondylosis Without Myelopathy 08/05/2010 SALGUERO DO, LADONNA K 721.0 Cervical Spondylosis Without Myelopathy 08/05/2010 MADL OTOLARYNGOLOGY TEACHER, ETELVINA L 721 .0 Cervical Spondylosis Without Myelopathy 08/05/2010 SALGUERO DO, LADONNA K 721.0 Cervical Spondylosis Without Myelopathy 08/05/2010 MADL OTOLARYNGOLOGY TEACHER, ETELVINA L 721 .0 Cervical Spondylosis Without Myelopathy 08/07/2010 Ot 847.0 08/07/2010 Ot 847.2 08/07/2010 Ot 959.09 08/07/2010 Ot E000.8 08/07/2010 Ot E849.0 08/07/2010 Ot E884.2 08/13/2010 MORGAN OTOLARYNGOLOGY TEACHER, LAURIE S 441.4 ABDOMINAL ANEURYSM WITHOUT MENTION OF RUPTURE 08/13/2010 MORGAN OTOLARYNGOLOGY TEACHER, LAURIE S 724.2 LUMBAGO 08/13/2010 441.4 Abdo andrew Aneurysm Without Mention Of Rupture 08/13/2010 724.2 LUMBAGO 08/13/2010 MORGAN OTOLARYNGOLOGY TEACHER, LAURIE S 441.4 Abdominal Aneurysm Without Mention Of Rupture 08/13/2010 MORGAN OTOLARYNGOLOGY TEACHER, LAURIE S 724.2 LUMBAGO 08/13/2010 MORGAN OTOLARYNGOLOGY TEACHER, LAURIE S 441.4 Abdominal Aneurysm Without Mention Of Rupture 08/13/2010 MORGAN OTOLARYNGOLOGY TEACHER, LAURIE S 724.2 LUMBAGO 08/13/2010 ROMELIA FISCHER MD 441. 4 Abdominal Aneurysm Without Mention Of Rupture 08/13/2010 ROMELIA FISCHER MD 724. 2 LUMBAGO 08/13/2010 BYRON BOSS MD 441.4 Abdominal Aneurysm Without Mention Of Rupture 08/13/2010 BYRON BOSS MD 724.2 lower back pain 08/13/2010 441.4 Abdo andrew Aneurysm Without Mention Of Rupture 08/13/2010 724.2 lowe r back pain 08/13/2010 441.4 Abdo andrew Aneurysm Without Mention Of Rupture 08/13/2010 724.2 lowe r back pain 08/13/2010 441.4 Abdo andrew Aneurysm Without Mention Of Rupture 08/13/2010 724.2 lowe r back pain 08/13/2010 441.4 Abdo andrew Aneurysm Without Mention Of Rupture 08/13/2010 724.2 lowe r back pain 08/13/2010 BYRON BOSS MD 441.4 Abdominal Aneurysm Without Mention Of Rupture 08/13/2010 BYRON BOSS MD 724.2 lower back pain 08/13/2010 BYRON BOSS MD 441.4 Abdominal Aneurysm Without Mention Of Rupture 08/13/2010 BYRON BOSS MD 724.2 lower back pain 08/13/2010 LADONNA SALGUERO DO 441.4 Abdominal Aneurysm Without Mention Of Rupture 08/13/2010 LADONNA SALGUERO DO 724.2 lower back pain 08/13/2010 BYRON BOSS [...] K 724.2 lower back pain 08/13/2010 MADL OTOLARYNGOLOGY TEACHER, ETELVINA L 441 .4 Abdominal Aneurysm Without Mention Of Rupture 08/13/2010 MADL OTOLARYNGOLOGY TEACHER, ETELVINA L 724 .2 lower back pain 08/13/2010 MADL OTOLARYNGOLOGY TEACHER, ETELVINA L 441 .4 Abdominal Aneurysm Without Mention Of Rupture 08/13/2010 MADL OTOLARYNGOLOGY TEACHER, ETELVINA L 724 .2 lower back pain 08/13/2010 MADL OTOLARYNGOLOGY TEACHER, ETELVINA L 441 .4 Abdominal Aneurysm Without Mention Of Rupture 08/13/2010 MADL OTOLARYNGOLOGY TEACHER, ETELVINA L 724 .2 lower back pain 08/13/2010 SALGUERO DO, LADONNA K 441.4 Abdominal Aneurysm Without Mention Of Rupture 08/13/2010 SALGUERO DO, LADONNA K 724.2 lower back pain 08/13/2010 SALGUERO DO, LADONNA K 441.4 Abdominal Aneurysm Without Mention Of Rupture 08/13/2010 SALGUERO DO, LADONNA K 724.2 lower back pain 08/13/2010 MADL OTOLARYNGOLOGY TEACHER, ETELVINA L 441 .4 Abdominal Aneurysm Without Mention Of Rupture 08/13/2010 MADL OTOLARYNGOLOGY TEACHER, ETELVINA L 724 .2 lower back pain 08/13/2010 MADL OTOLARYNGOLOGY TEACHER, ETELVINA L 441 .4 Abdominal Aneurysm Without Mention Of Rupture 08/13/2010 MADL OTOLARYNGOLOGY TEACHER, ETELVINA L 724 .2 lower back pain 08/13/2010 MADL OTOLARYNGOLOGY TEACHER, ETELVINA L 441 .4 Abdominal Aneurysm Without Mention Of Rupture 08/13/2010 MADL OTOLARYNGOLOGY TEACHER, ETELVINA L 724 .2 lower back pain 08/13/2010 MADL OTOLARYNGOLOGY TEACHER, ETELVINA L 441 .4 Abdominal Aneurysm Without Mention Of Rupture 08/13/2010 MADL OTOLARYNGOLOGY TEACHER, ETELVINA L 724 .2 lower back pain 08/13/2010 MADL OTOLARYNGOLOGY TEACHER, ETELVINA L 441 .4 Abdominal Aneurysm Without Mention Of Rupture 08/13/2010 MADL OTOLARYNGOLOGY TEACHER, ETELVINA L 724 .2 lower back pain 08/13/2010 MADL OTOLARYNGOLOGY TEACHER, ETELVINA L 441 .4 Abdominal Aneurysm Without Mention Of Rupture 08/13/2010 MADL OTOLARYNGOLOGY TEACHER, ETELVINA L 724 .2 lower back pain 08/13/2010 MADL OTOLARYNGOLOGY TEACHER, ETELVINA L 441 .4 Abdominal Aneurysm Without Mention Of Rupture 08/13/2010 MADL OTOLARYNGOLOGY TEACHER, ETELVINA L 724 .2 lower back pain 08/13/2010 SALGUERO DO, LADONNA K 441.4 Abdominal Aneurysm Without Mention Of Rupture 08/13/2010 SALGUERO DO, LADONNA K 724.2 lower back pain 08/13/2010 SALGUERO DO, LADONNA K 441.4 Abdominal Aneurysm Without Mention Of Rupture 08/13/2010 SALGUERO DO, LADONNA K 724.2 lower back pain 08/13/2010 MADL OTOLARYNGOLOGY TEACHER, ETELVINA L 441 .4 Abdominal Aneurysm Without Mention Of Rupture 08/13/2010 MADL OTOLARYNGOLOGY TEACHER, ETELVINA L 724 .2 lower back pain 08/13/2010 SALGUERO DO, LADONNA K 441.4 Abdominal Aneurysm Without Mention Of Rupture 08/13/2010 LADONNA SALGUERO DO 724.2 lower back pain 08/13/2010 HUGOL ETELVINA HARRIS 441 .4 Abdominal Aneurysm Without Mention Of Rupture 08/13/2010 ETELVINA LEONARD APRN 724 .2 lower back pain 09/05/2010 Ot 250.00 09/05/2010 [...] APRNNDA S 729.5 Arm Pain 12/12/2010 719.40 Gabrielle n In Joint Site Unspecified 12/12/2010 724.5 Back Pain, General 12/12/2010 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 12/12/2010 729.5 Arm Pain 12/12/2010 MORGAN HARRIS LAURIE S 719.40 Pain In Joint Site Unspecified 12/12/2010 MORGAN OTOLARYNGOLOGY TEACHER, LAURIE S 724.5 Back Pain, General 12/12/2010 PALOMA MORA APRNNDA S 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 40 Pain In Joint Site Unspecified 12/12/2010 AMADO OLVERA, ROMELIA 724. 5 Back Pain, General 12/12/2010 AMADO OLVERA, ROMELIA 727. 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 12/12/2010 AMADO OLVERA, ROMELIA 729. 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 12/12/2010 729.5 Arm Pain 12/12/2010 719.40 Gabrielle n In Joint Site Unspecified 12/12/2010 724.5 Back Pain, General 12/12/2010 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 12/12/2010 729.5 Arm Pain 12/12/2010 719.40 Gabrielle n In Joint Site Unspecified 12/12/2010 724.5 Back Pain, General 12/12/2010 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 12/12/2010 729.5 Arm Pain 12/12/2010 719.40 Gabrielle n In Joint Site Unspecified 12/12/2010 724.5 Back Pain, General 12/12/2010 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 12/12/2010 729.5 Arm Pain 12/12/2010 [...] BYRON BOSS MD 729.5 Arm Pain 12/12/2010 TERE SALGUERO DOA K 719.40 Pain In Joint Site Unspecified 12/12/2010 TERE SALGUERO DOA K 724.5 Back Pain, General 12/12/2010 TERE SALGUERO DOA K 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 12/12/2010 TERE SALGUERO DOA K 729.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 12/12/2010 BYRON BOSS MD 729.5 Arm Pain 12/12/2010 LADONNA SALGUERO DO K 719.40 Pain In Joint Site Unspecified 12/12/2010 TERE SALGUERO DOA K 724.5 Back Pain, General 12/12/2010 TERE SALGUERO DOA K 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 12/12/2010 TERE SALGUERO DOA K 729.5 Arm Pain 12/12/2010 BYRON BOSS [...] In Joint Site Unspecified 12/12/2010 SALGUERO DO, LADNONA K 724.5 Back Pain, General 12/12/2010 SALGUERO [...] LADONNA K 729.5 Arm Pain 12/12/2010 MADL OTOLARYNGOLOGY TEACHER, ETELVINA L 719 .40 Pain In Joint Site Unspecified 12/12/2010 MADL OTOLARYNGOLOGY TEACHER, ETELVINA L 724 .5 Back Pain, General 12/12/2010 MADL OTOLARYNGOLOGY TEACHER, ETELVINA L 727 .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 12/12/2010 MADL OTOLARYNGOLOGY TEACHER, ETELVINA L 729 .5 Arm Pain 12/12/2010 MADL OTOLARYNGOLOGY TEACHER, ETELVINA L 719 .40 Pain In Joint Site Unspecified 12/12/2010 MADL OTOLARYNGOLOGY TEACHER, ETELVINA L 724 .5 Back Pain, General 12/12/2010 MADL OTOLARYNGOLOGY TEACHER, ETELVINA L 727 .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 12/12/2010 MADL OTOLARYNGOLOGY TEACHER, ETELVINA L 729 .5 Arm Pain 12/12/2010 MADL OTOLARYNGOLOGY TEACHER, ETELVINA L 719 .40 Pain In Joint Site Unspecified 12/12/2010 MADL OTOLARYNGOLOGY TEACHER, ETELVINA L 724 .5 Back Pain, General 12/12/2010 MADL OTOLARYNGOLOGY TEACHER, ETELVINA L 727 .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 12/12/2010 MADL OTOLARYNGOLOGY TEACHER, ETELVINA L 729 .5 Arm Pain 12/12/2010 SALGUERO DO, LADONNA K [...] LADONNA K 729.5 Arm Pain 12/12/2010 MADL OTOLARYNGOLOGY TEACHER, ETELVINA L 719 .40 Pain In Joint Site Unspecified 12/12/2010 MADL OTOLARYNGOLOGY TEACHER, ETELVINA L 724 .5 Back Pain, General 12/12/2010 MADL OTOLARYNGOLOGY TEACHER, ETELVINA L 727 .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 12/12/2010 MADL OTOLARYNGOLOGY TEACHER, ETELVINA L 729 .5 Arm Pain 12/12/2010 MADL OTOLARYNGOLOGY TEACHER, ETELVINA L 719 .40 Pain In Joint Site Unspecified 12/12/2010 MADL OTOLARYNGOLOGY TEACHER, ETELVINA L 724 .5 Back Pain, General 12/12/2010 MADL OTOLARYNGOLOGY TEACHER, ETELVINA L 727 .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 12/12/2010 MADL OTOLARYNGOLOGY TEACHER, ETELVINA L 729 .5 Arm Pain 12/12/2010 MADL OTOLARYNGOLOGY TEACHER, ETELVINA L 719 .40 Pain In Joint Site Unspecified 12/12/2010 MADL OTOLARYNGOLOGY TEACHER, ETELVINA L 724 .5 Back Pain, General 12/12/2010 MADL OTOLARYNGOLOGY TEACHER, ETELVINA L 727 .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 12/12/2010 MADL OTOLARYNGOLOGY TEACHER, ETELVINA L 729 .5 Arm Pain 12/12/2010 MADL OTOLARYNGOLOGY TEACHER, ETELVINA L 719 .40 Pain In Joint Site Unspecified 12/12/2010 MADL OTOLARYNGOLOGY TEACHER, ETELVINA L 724 .5 Back Pain, General 12/12/2010 MADL OTOLARYNGOLOGY TEACHER, ETELVINA L 727 .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 12/12/2010 MADL OTOLARYNGOLOGY TEACHER, ETELVINA L 729 .5 Arm Pain 12/12/2010 MADL OTOLARYNGOLOGY TEACHER, ETELVINA L 719 .40 Pain In Joint Site Unspecified 12/12/2010 MADL OTOLARYNGOLOGY TEACHER, ETELVINA L 724 .5 Back Pain, General 12/12/2010 MADL OTOLARYNGOLOGY TEACHER, ETELVINA L 727 .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 12/12/2010 MADL OTOLARYNGOLOGY TEACHER, ETELVINA L 729 .5 Arm Pain 12/12/2010 MADL OTOLARYNGOLOGY TEACHER, ETELVINA L 719 .40 Pain In Joint Site Unspecified 12/12/2010 MADL OTOLARYNGOLOGY TEACHER, ETELVINA L 724 .5 Back Pain, General 12/12/2010 MADL OTOLARYNGOLOGY TEACHER, ETELVINA L 727 .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 12/12/2010 MADL OTOLARYNGOLOGY TEACHER, ETELVINA L 729 .5 Arm Pain 12/12/2010 MADL OTOLARYNGOLOGY TEACHER, ETELVINA L 719 .40 Pain In Joint Site Unspecified 12/12/2010 MADL OTOLARYNGOLOGY TEACHER, ETELVINA L 724 .5 Back Pain, General 12/12/2010 MADL OTOLARYNGOLOGY TEACHER, ETELVINA L 727 .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 12/12/2010 MADL OTOLARYNGOLOGY TEACHER, ETELVINA L 729 .5 Arm Pain 12/12/2010 SALGUERO DO, LADONNA K 719.40 Pain In Joint Site Unspecified 12/12/2010 SALGUERO DO LADNONA K 724.5 Back Pain, General 12/12/2010 SALGUERO DO LADONNA K 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 12/12/2010 SALGUERO DO LADONNA K 729.5 Arm Pain 12/12/2010 SALGUERO DO, LADONNA K 719.40 Pain In Joint Site Unspecified 12/12/2010 SALGUERO DO, LADONNA K 724.5 Back Pain, General 12/12/2010 SALGUERO DO LADONNA K 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 12/12/2010 SALGUERO DO LADONNA K 729.5 Arm Pain 12/12/2010 MADL OTOLARYNGOLOGY TEACHER, ETELVINA L 719 .40 Pain In Joint Site Unspecified 12/12/2010 MADL OTOLARYNGOLOGY TEACHER, ETELVINA L 724 .5 Back Pain, General 12/12/2010 MADL OTOLARYNGOLOGY TEACHER, ETELVINA L 727 .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 12/12/2010 MADL OTOLARYNGOLOGY TEACHER, ETELVINA L 729 .5 Arm Pain 12/12/2010 SALGUERO DO LADONNA K 719.40 Pain In Joint Site Unspecified 12/12/2010 SALGUERO DO LADONNA K 724.5 Back Pain, General 12/12/2010 SALGUERO DO LADONNA K 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 12/12/2010 SALGUERO DO LADONNA K 729.5 Arm Pain 12/12/2010 MADL OTOLARYNGOLOGY TEACHER, ETELVINA L 719 .40 Pain In Joint Site Unspecified 12/12/2010 MADL OTOLARYNGOLOGY TEACHER, ETELVINA L 724 .5 Back Pain, General 12/12/2010 MADL OTOLARYNGOLOGY TEACHER, ETELVINA L 727 .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 12/12/2010 MADL OTOLARYNGOLOGY TEACHER, ETELVINA L 729 .5 Arm Pain 01/22/2011 Ot 250.00 01/22/2011 Ot 727.04 01/22/2011 Ot V58.69 02/12/2011 Ot 250.00 02/12/2011 Ot 354.0 02/12/2011 Ot 354.2 02/12/2011 Ot V58.69 03/19/2011 Ot 250.00 03/19/2011 Ot 354.0 03/19/2011 Ot 354.2 03/19/2011 Ot V58.69 06/17/2011 MORGAN OTOLARYNGOLOGY TEACHER, LAURIE S V68.1 ISSUE OF REPEAT PRESCRIPTIONS 06/17/2011 V68.1 ISSU E OF REPEAT PRESCRIPTIONS 06/17/2011 LAURIE MORA APRN S V68.1 ISSUE OF REPEAT PRESCRIPTIONS 06/17/2011 LAURIE MORA APRN S V68.1 ISSUE OF REPEAT PRESCRIPTIONS 06/17/2011 AMADO OLVERA, ROMELIA V68. 1 ISSUE OF REPEAT PRESCRIPTIONS 06/17/2011 BYRON BOSS MD V68.1 ISSUE OF REPEAT PRESCRIPTIONS 06/17/2011 V68.1 ISSU E OF REPEAT PRESCRIPTIONS 06/17/2011 V68.1 ISSU E OF REPEAT PRESCRIPTIONS 06/17/2011 V68.1 ISSU E OF REPEAT PRESCRIPTIONS 06/17/2011 V68.1 ISSU E OF REPEAT PRESCRIPTIONS 06/17/2011 BYRON BOSS MD [...] V68.1 ISSUE OF REPEAT PRESCRIPTIONS 06/17/2011 MADL OTOLARYNGOLOGY TEACHER, ETELVINA L V68 .1 ISSUE OF REPEAT PRESCRIPTIONS 06/17/2011 MADL OTOLARYNGOLOGY TEACHER, ETELVINA L V68 .1 ISSUE OF REPEAT PRESCRIPTIONS 06/17/2011 MADL OTOLARYNGOLOGY TEACHER, ETELVINA L V68 .1 ISSUE OF REPEAT PRESCRIPTIONS 06/17/2011 SALGUERO DO, LADONNA K V68.1 ISSUE OF REPEAT PRESCRIPTIONS 06/17/2011 SALGUERO DO, LADONNA K V68.1 ISSUE OF REPEAT PRESCRIPTIONS 06/17/2011 HAMMAD LEONARD APRNA L V68 .1 ISSUE OF REPEAT PRESCRIPTIONS 06/17/2011 HUGOL HAMMAD HARRISA L V68 .1 ISSUE OF REPEAT PRESCRIPTIONS 06/17/2011 MADL OTOLARYNGOLOGY TEACHERHAMMAD BowserA L V68 .1 ISSUE OF REPEAT PRESCRIPTIONS 06/17/2011 MADL OTOLARYNGOLOGY TEACHERHAMAMD BowserA L V68 .1 ISSUE OF REPEAT PRESCRIPTIONS 06/17/2011 HUGOL OTOLARYNGOLOGY TEACHERHAMMAD BowserA L V68 .1 ISSUE OF REPEAT PRESCRIPTIONS 06/17/2011 MADL OTOLARYNGOLOGY TEACHERHAMMAD BowserA L V68 .1 ISSUE OF REPEAT PRESCRIPTIONS 06/17/2011 HUGOL OTOLARYNGOLOGY TEACHERANDREZ BowserNYA L V68 .1 ISSUE OF REPEAT PRESCRIPTIONS 06/17/2011 SALGUERO DO LADONNA K V68.1 ISSUE OF REPEAT PRESCRIPTIONS 06/17/2011 SALGUERO DO LADONNA K V68.1 ISSUE OF REPEAT PRESCRIPTIONS 06/17/2011 HUGOL OTOLARYNGOLOGY TEACHERHAMMAD BowserA L V68 .1 ISSUE OF REPEAT PRESCRIPTIONS 06/17/2011 SALGUERO DO LADONNA K V68.1 ISSUE OF REPEAT PRESCRIPTIONS 06/17/2011 HAMMAD LEONARD APRNA L V68 .1 ISSUE OF REPEAT PRESCRIPTIONS 07/10/2011 Ot 250.00 07/10/2011 Ot 272.4 07/10/2011 Ot 278.03 07/10/2011 Ot 300.4 07/10/2011 Ot 305.1 07/10/2011 Ot 414.01 07/10/2011 Ot 424.1 07/10/2011 Ot 426.3 07/10/2011 Ot 491.21 07/10/2011 Ot V45.82 07/10/2011 Ot V85.41 07/14/2011 Ot 250.00 MICHELE B MELVA WO COMPL, TYPE II OR UNSPEC TY 07/14/2011 Ot 414.01 COR ONARY ATHEROSCLEROSIS OF [place] CORON 07/14/2011 Ot 496 CHR AI RWAY OBSTRUCT NEC 07/14/2011 Ot 599.0 URIN TRACT INFECTION NOS 07/14/2011 Ot 724.5 BACK ACHE NOS 07/14/2011 Ot 787.01 EWELINA SEA WITH VOMITING 07/31/2011 LAURIE MORA APRN V04.81 Flu Dx (3 Yrs And Above, Im) 07/31/2011 V04.81 Flu Dx (3 Yrs And Above, Im) 07/31/2011 LAURIE MORA APRN S V04.81 Flu Dx (3 Yrs And Above, Im) 07/31/2011 LAURIE MORA APRN S V04.81 Flu Dx (3 Yrs And Above, Im) 07/31/2011 ROMELIA FISCHER MD V04. 81 Flu Dx (3 Yrs And Above, Im) [...] And Above, Im) 07/31/2011 LADONNA SALGUERO DO K V04.81 Flu Dx (3 Yrs And Above, Im) 07/31/2011 BYRON BOSS MD V04.81 Flu Dx (3 Yrs And Above, Im) 07/31/2011 LADONNA SALGUERO DO K V04.81 Flu Dx (3 Yrs And Above, Im) 07/31/2011 BYRON BOSS MD V04.81 Flu Dx (3 Yrs And Above, Im) 07/31/2011 BYRON BOSS MD V04.81 Flu Dx (3 Yrs And Above, Im) 07/31/2011 TERE SALGUERO DOA K V04.81 Flu Dx (3 Yrs And Above, Im) 07/31/2011 SALGUERO DO LADONNA K V04.81 Flu Dx (3 Yrs And Above, Im) 07/31/2011 SALGUERO DO LADONNA K V04.81 Flu Dx (3 Yrs And Above, Im) 07/31/2011 SALGUERO DO LADONNA K V04.81 Flu Dx (3 Yrs And Above, Im) 07/31/2011 ETELVINA LEONARD APRN V04 .81 Flu Dx (3 Yrs And Above, Im) 07/31/2011 MADL OTOLARYNGOLOGY TEACHER, ETELVINA L V04 .81 Flu Dx (3 Yrs And Above, Im) 07/31/2011 MADL OTOLARYNGOLOGY TEACHER, ETELVINA L V04 .81 Flu Dx (3 Yrs And Above, Im) 07/31/2011 SALGUERO DO, LADONNA K V04.81 Flu Dx (3 Yrs And Above, Im) 07/31/2011 SALGUERO DO, LADONNA K V04.81 Flu Dx (3 Yrs And Above, Im) 07/31/2011 MADL OTOLARYNGOLOGY TEACHER, ETELVINA L V04 .81 Flu Dx (3 Yrs And Above, Im) 07/31/2011 MADL OTOLARYNGOLOGY TEACHER, ETELVINA L V04 .81 Flu Dx (3 Yrs And Above, Im) 07/31/2011 MADL OTOLARYNGOLOGY TEACHER, ETELVINA L V04 .81 Flu Dx (3 Yrs And Above, Im) 07/31/2011 MADL OTOLARYNGOLOGY TEACHER, ETELVINA L V04 .81 Flu Dx (3 Yrs And Above, Im) 07/31/2011 MADL OTOLARYNGOLOGY TEACHER, ETELVINA L V04 .81 Flu Dx (3 Yrs And Above, Im) 07/31/2011 MADL OTOLARYNGOLOGY TEACHER, ETELVINA L V04 .81 Flu Dx (3 Yrs And Above, Im) 07/31/2011 MADL OTOLARYNGOLOGY TEACHER, ETELVINA L V04 .81 Flu Dx (3 Yrs And Above, Im) 07/31/2011 SALGUERO DO, LADONNA K V04.81 Flu Dx (3 Yrs And Above, Im) 07/31/2011 SALGUERO DO, LADONNA K V04.81 Flu Dx (3 Yrs And Above, Im) 07/31/2011 MADL OTOLARYNGOLOGY TEACHER, ETELVINA L V04 .81 Flu Dx (3 Yrs And Above, Im) 07/31/2011 SALGUERO DO, LADONNA K V04.81 Flu Dx (3 Yrs And Above, Im) 07/31/2011 MADL OTOLARYNGOLOGY TEACHER, ETELVINA L V04 .81 Flu Dx (3 Yrs And Above, Im) 08/27/2011 LAURIE MORA APRN S 780.50 SLEEP DISTURBANCE, UNSPECIFIED 08/27/2011 780.50 Sle ep Disturbance, Unspecified 08/27/2011 MORGAN OTOLARYNGOLOGY TEACHER, LAURIE S 780.50 Sleep Disturbance, Unspecified 08/27/2011 MORGAN OTOLARYNGOLOGY TEACHER, LAURIE S 780.50 Sleep Disturbance, Unspecified 08/27/2011 ROMELIA FISCHER MD 780. 50 Sleep Disturbance, Unspecified 08/27/2011 BYRON BOSS MD 780.50 Sleep Disturbance, Unspecified 08/27/2011 780.50 Sle ep Disturbance, Unspecified 08/27/2011 780.50 Sle ep Disturbance, Unspecified 08/27/2011 780.50 Sle ep Disturbance, Unspecified 08/27/2011 780.50 Sle ep Disturbance, Unspecified 08/27/2011 BYRON BOSS MD 780.50 [...] K 780.50 Sleep Disturbance, Unspecified 08/27/2011 MADL OTOLARYNGOLOGY TEACHER, ETELVINA L 780 .50 Sleep Disturbance, Unspecified 08/27/2011 MADL OTOLARYNGOLOGY TEACHER, ETELVINA L 780 .50 Sleep Disturbance, Unspecified 08/27/2011 MADL OTOLARYNGOLOGY TEACHER, ETELVINA L 780 .50 Sleep Disturbance, Unspecified 08/27/2011 SALGUERO DO, LADONNA K 780.50 Sleep Disturbance, Unspecified 08/27/2011 SALGUERO DO, LADONNA K 780.50 Sleep Disturbance, Unspecified 08/27/2011 MADL OTOLARYNGOLOGY TEACHER, ETELVINA L 780 .50 Sleep Disturbance, Unspecified 08/27/2011 MADL OTOLARYNGOLOGY TEACHER, ETELVINA L 780 .50 Sleep Disturbance, Unspecified 08/27/2011 MADL OTOLARYNGOLOGY TEACHER, ETELVINA L 780 .50 Sleep Disturbance, Unspecified 08/27/2011 MADL OTOLARYNGOLOGY TEACHER, ETELVINA L 780 .50 Sleep Disturbance, Unspecified 08/27/2011 MADL OTOLARYNGOLOGY TEACHER, ETELVINA L 780 .50 Sleep Disturbance, Unspecified 08/27/2011 MADL OTOLARYNGOLOGY TEACHER, ETELVINA L 780 .50 Sleep Disturbance, Unspecified 08/27/2011 MADL OTOLARYNGOLOGY TEACHER, ETELVINA L 780 .50 Sleep Disturbance, Unspecified 08/27/2011 SALGUERO DO, LADONNA K 780.50 Sleep Disturbance, Unspecified 08/27/2011 SALGUERO DO, LADONNA K 780.50 Sleep Disturbance, Unspecified 08/27/2011 MADL OTOLARYNGOLOGY TEACHER, ETELVINA L 780 .50 Sleep Disturbance, Unspecified 08/27/2011 SALGUERO DO, LADONNA K 780.50 Sleep Disturbance, Unspecified 08/27/2011 MADL OTOLARYNGOLOGY TEACHER, ETELVINA L 780 .50 Sleep Disturbance, Unspecified 09/26/2011 MORGAN OTOLARYNGOLOGY TEACHER, LAURIE S 788.41 URINARY FREQUENCY 09/26/2011 MORGAN OTOLARYNGOLOGY TEACHER, LAURIE S 788.63 URINARY URGENCY 09/26/2011 788.41 Uri nary Frequency 09/26/2011 788.63 Uri nary Urgency 09/26/2011 MORGAN OTOLARYNGOLOGY TEACHER, LAURIE S 788.41 Urinary Frequency 09/26/2011 MORGAN OTOLARYNGOLOGY TEACHER, LAURIE S 788.63 Urinary Urgency 09/26/2011 MORGAN OTOLARYNGOLOGY TEACHER, LAURIE S 788.41 Urinary Frequency 09/26/2011 MORGAN OTOLARYNGOLOGY TEACHER, LAURIE S 788.63 Urinary Urgency 09/26/2011 ROMELIA FISCHER MD 788. 41 Urinary Frequency 09/26/2011 ROMELIA FISCHER MD 788. 63 Urinary Urgency 09/26/2011 BYRON BOSS MD 788.41 Urinary Frequency 09/26/2011 BYRON BOSS MD 788.63 Urinary Urgency 09/26/2011 788.41 Uri nary Frequency 09/26/2011 788.63 Uri nary Urgency 09/26/2011 788.41 Uri nary Frequency 09/26/2011 788.63 Uri nary Urgency 09/26/2011 788.41 Uri nary Frequency 09/26/2011 788.63 Uri nary Urgency 09/26/2011 788.41 Uri nary Frequency 09/26/2011 788.63 Uri nary Urgency 09/26/2011 BYRON BOSS MD 788.41 Urinary [...] LADONNA K 788.63 Urinary Urgency 09/26/2011 MADL OTOLARYNGOLOGY TEACHER, ETELVINA L 788 .41 Urinary Frequency 09/26/2011 MADL OTOLARYNGOLOGY TEACHER, ETELVINA L 788 .63 Urinary Urgency 09/26/2011 MADL OTOLARYNGOLOGY TEACHER, ETELVINA L 788 .41 Urinary Frequency 09/26/2011 MADL OTOLARYNGOLOGY TEACHER, ETELVINA L 788 .63 Urinary Urgency 09/26/2011 MADL OTOLARYNGOLOGY TEACHER, ETELVINA L 788 .41 Urinary Frequency 09/26/2011 MADL OTOLARYNGOLOGY TEACHER, ETELVINA L 788 .63 Urinary Urgency 09/26/2011 SALGUERO DO, LADONNA K 788.41 Urinary Frequency 09/26/2011 SALGUERO DO, LADONNA K 788.63 Urinary Urgency 09/26/2011 SALGUERO DO, LADONNA K 788.41 Urinary Frequency 09/26/2011 SALGUERO DO, LADONNA K 788.63 Urinary Urgency 09/26/2011 MADL OTOLARYNGOLOGY TEACHER, ETELVINA L 788 .41 Urinary Frequency 09/26/2011 MADL OTOLARYNGOLOGY TEACHER, ETELVINA L 788 .63 Urinary Urgency 09/26/2011 MADL OTOLARYNGOLOGY TEACHER, ETELVINA L 788 .41 Urinary Frequency 09/26/2011 MADL OTOLARYNGOLOGY TEACHER, ETELVINA L 788 .63 Urinary Urgency 09/26/2011 MADL OTOLARYNGOLOGY TEACHER, ETELVINA L 788 .41 Urinary Frequency 09/26/2011 MADL OTOLARYNGOLOGY TEACHER, ETELVINA L 788 .63 Urinary Urgency 09/26/2011 MADL OTOLARYNGOLOGY TEACHER, ETELVINA L 788 .41 Urinary Frequency 09/26/2011 MADL OTOLARYNGOLOGY TEACHER, ETELVINA L 788 .63 Urinary Urgency 09/26/2011 MADL OTOLARYNGOLOGY TEACHER, ETELVINA L 788 .41 Urinary Frequency 09/26/2011 MADL OTOLARYNGOLOGY TEACHER, ETELVINA L 788 .63 Urinary Urgency 09/26/2011 MADL OTOLARYNGOLOGY TEACHER, ETELVINA L 788 .41 Urinary Frequency 09/26/2011 MADL OTOLARYNGOLOGY TEACHER, ETELVINA L 788 .63 Urinary Urgency 09/26/2011 MADL OTOLARYNGOLOGY TEACHER, ETELVINA L 788 .41 Urinary Frequency 09/26/2011 MADL OTOLARYNGOLOGY TEACHER, ETELVINA L 788 .63 Urinary Urgency 09/26/2011 SALGUERO DO, LADONNA K 788.41 Urinary Frequency 09/26/2011 SALGUERO DO, LADONNA K 788.63 Urinary Urgency 09/26/2011 SALGUERO DO, LADONNA K 788.41 Urinary Frequency 09/26/2011 SALGUERO DO, LADONNA K 788.63 Urinary Urgency 09/26/2011 MADL OTOLARYNGOLOGY TEACHER, ETELVINA L 788 .41 Urinary Frequency 09/26/2011 MADL OTOLARYNGOLOGY TEACHER, ETELVINA L 788 .63 Urinary Urgency 09/26/2011 SALGUERO DO, LADONNA K 788.41 Urinary Frequency 09/26/2011 SALGUERO DO, LADONNA K 788.63 Urinary Urgency 09/26/2011 MADL OTOLARYNGOLOGY TEACHER, ETELVINA L 788 .41 Urinary Frequency 09/26/2011 MADL OTOLARYNGOLOGY TEACHER, EETLVINA L 788 .63 Urinary Urgency 10/18/2011 PALOMA MORA APRNNDA S V65.42 COUNSELING - SMOKING CESSATION 10/18/2011 V65.42 Cou nseling - Smoking Cessation 10/18/2011 PALOMA MORA APRNNDA S V65.42 Counseling - Smoking Cessation 10/18/2011 PALOMA MORA APRNNDA S V65.42 Counseling - Smoking Cessation 10/18/2011 ROMELIA FISCHER MD V65. 42 Counseling - Smoking Cessation 10/18/2011 BYRON BOSS MD V65.42 Counseling - Smoking Cessation 10/18/2011 V65.42 Cou nseling - Smoking Cessation 10/18/2011 V65.42 Cou nseling - Smoking Cessation 10/18/2011 V65.42 Cou nseling - Smoking Cessation 10/18/2011 V65.42 Cou nseling - Smoking Cessation 10/18/2011 BYRON BOSS MD [...] Smoking Cessation 10/18/2011 SARA LEONARD APRNWNYA L V65 .42 Counseling - Smoking Cessation 10/18/2011 SARA LEONARD APRNWNYA L V65 .42 Counseling - Smoking Cessation 10/18/2011 SARA LEONARD APRNWNYA L V65 .42 Counseling - Smoking Cessation 10/18/2011 NOEMY LADONNA PRAKASH K V65.42 Counseling - Smoking Cessation 10/18/2011 NOEMY LADONNA PRAKASH K V65.42 Counseling - Smoking Cessation 10/18/2011 AISHA HARRISHAMMADA L V65 .42 Counseling - Smoking Cessation 10/18/2011 AISHA HARRISETELVINA L V65 .42 Counseling - Smoking Cessation 10/18/2011 AISHA HARRISETELVINA L V65 .42 Counseling - Smoking Cessation 10/18/2011 HUGO KIMBERLYETELVINA L V65 .42 Counseling - Smoking Cessation 10/18/2011 HUGO KIMBERLYHAMMADA L V65 .42 Counseling - Smoking Cessation 10/18/2011 HUGO SARA HARRISWNYA L V65 .42 Counseling - Smoking Cessation 10/18/2011 HUGO KIMBERLYHAMMADA L V65 .42 Counseling - Smoking Cessation 10/18/2011 NOEMY LADONNA PRAKASH K V65.42 Counseling - Smoking Cessation 10/18/2011 NOEMY PRAKASHLADONNA K V65.42 Counseling - Smoking Cessation 10/18/2011 AISHA HARRIS ETELVINA L V65 .42 Counseling - Smoking Cessation 10/18/2011 NOEMY LADONNA PRAKASH K V65.42 Counseling - Smoking Cessation 10/18/2011 SARA LEONARD APRNWNYA L V65 .42 Counseling - Smoking Cessation 10/19/2011 Ot 466.0 ACUT E BRONCHITIS 10/19/2011 Ot 786.05 MARLI RTNESS OF BREATH 10/24/2011 Ot 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 10/24/2011 Ot 466.0 ACUT E BRONCHITIS 10/24/2011 Ot 786.2 COUGH 11/11/2011 Ot 250.00 MICHELE B MELVA WO COMPL, TYPE II OR UNSPEC TY 11/11/2011 Ot 272.4 HYPE RLIPIDEMIA NEC/NOS 11/11/2011 Ot 278.00 OBE SITY, NOS 11/11/2011 Ot 300.4 DYST HYMIC DISORDER 11/11/2011 Ot 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 11/11/2011 Ot 338.29 OTH ER CHRONIC PAIN 11/11/2011 Ot 414.01 COR ONARY ATHEROSCLEROSIS OF [place] CORON 11/11/2011 Ot 424.1 AORT IC VALVE DISORDER 11/11/2011 Ot 426.3 LEFT BB BLOCK NEC 11/11/2011 Ot 496 CHR AI RWAY OBSTRUCT NEC 11/11/2011 Ot 530.81 ESO PHAGEAL REFLUX 11/11/[address] PAIN NEC 11/11/2011 Ot V45.82 PER CUTANEOUS TRANSLUM CORON ANGIOPLASTY 11/11/2011 Ot V46.2 SUPP LEMENTAL OXYGEN 11/11/2011 Ot V58.63 YIN G- TERM(CURRENT)USE OF ANTIPLATELET/AN 11/11/2011 Ot V58.69 OTH MED,LT,CURRENT USE 11/11/2011 Ot V85.41 BOD Y MASS INDEX 40.0-44.9, ADULT 12/04/2011 LAURIE MORA APRN S 461.9 SINUSITIS ACUTE 12/04/2011 461.9 Sinu sitis Acute 12/04/2011 LAURIE MORA APRN S 461.9 Sinusitis Acute 12/04/2011 LAURIE MORA APRN S 461.9 Sinusitis Acute 12/04/2011 AMADO OLVERA, ROMELIA 461. 9 Sinusitis Acute 12/04/2011 BYRON BOSS MD 461.9 Sinusitis Acute 12/04/2011 461.9 Sinu sitis Acute 12/04/2011 461.9 Sinu sitis Acute 12/04/2011 461.9 Sinu sitis Acute 12/04/2011 461.9 Sinu sitis Acute 12/04/2011 BYRON BOSS MD 461.9 Sinusitis Acute 12/04/2011 BYRON BOSS MD 461.9 Sinusitis Acute 12/04/2011 LADONNA SALGUERO DO 461.9 Sinusitis Acute 12/04/2011 BYRON BOSS MD 461.9 Sinusitis Acute 12/04/2011 LADONNA SALGUERO DO 461.9 Sinusitis Acute 12/04/2011 KARYN OLVERA, BYRON Bruner 461.9 Sinusitis Acute 12/04/2011 KARYN OLVERA, BYRON Bruner 461.9 Sinusitis Acute 12/04/2011 SALGUERO DO, LADONNA K 461.9 Sinusitis Acute 12/04/2011 SALGUERO DO, LADONNA K 461.9 Sinusitis Acute 12/04/2011 SALGUERO DO, LADONNA K 461.9 Sinusitis Acute 12/04/2011 SALGUERO DO, LADONNA K 461.9 Sinusitis Acute 12/04/2011 MADL OTOLARYNGOLOGY TEACHER, ETELVINA L 461 .9 Sinusitis Acute 12/04/2011 MADL OTOLARYNGOLOGY TEACHER, ETELVINA L 461 .9 Sinusitis Acute 12/04/2011 MADL OTOLARYNGOLOGY TEACHER, ETELVINA L 461 .9 Sinusitis Acute 12/04/2011 SALGUERO DO, LADONNA K 461.9 Sinusitis Acute 12/04/2011 SALGUERO DO, LADONNA K 461.9 Sinusitis Acute 12/04/2011 MADL OTOLARYNGOLOGY TEACHER, ETELVINA L 461 .9 Sinusitis Acute 12/04/2011 MADL OTOLARYNGOLOGY TEACHER, ETELVINA L 461 .9 Sinusitis Acute 12/04/2011 MADL OTOLARYNGOLOGY TEACHER, ETELVINA L 461 .9 Sinusitis Acute 12/04/2011 MADL OTOLARYNGOLOGY TEACHER, ETELVINA L 461 .9 Sinusitis Acute 12/04/2011 MADL OTOLARYNGOLOGY TEACHER, ETELVINA L 461 .9 Sinusitis Acute 12/04/2011 MADL OTOLARYNGOLOGY TEACHER, ETELVINA L 461 .9 Sinusitis Acute 12/04/2011 MADL OTOLARYNGOLOGY TEACHER, ETELVINA L 461 .9 Sinusitis Acute 12/04/2011 SALGUERO DO, LADONNA K 461.9 Sinusitis Acute 12/04/2011 SALGUERO DO, LADONNA K 461.9 Sinusitis Acute 12/04/2011 MADL OTOLARYNGOLOGY TEACHER, ETELVINA L 461 .9 Sinusitis Acute 12/04/2011 SALGUERO DO, LADONNA K 461.9 Sinusitis Acute 12/04/2011 MADL OTOLARYNGOLOGY TEACHER, ETELVINA L 461 .9 Sinusitis Acute 12/19/2011 MORGAN OTOLARYNGOLOGY TEACHER, LAURIE S 486 PNEUMONIA UNSPECIFIED 12/19/2011 MORGAN OTOLARYNGOLOGY TEACHER, LAURIE S 786.2 COUGH 12/19/2011 486 Pneumo madonna Unspecified 12/19/2011 786.2 Cough 12/19/2011 MORGAN HUDSONNPALOMALAURIE S 486 Pneumonia Unspecified 12/19/2011 MORGAN OTOLARYNGOLOGY TEACHER, LAURIE S 786.2 Cough 12/19/2011 MORGAN HARRIS, LAURIE S 486 Pneumonia Unspecified 12/19/2011 MORGAN HARRIS, LAURIE S 786.2 Cough 12/19/2011 ROMELIA FISCHER MD 486 Pneumonia Unspecified 12/19/2011 ROMELIA FISCHER MD 786. 2 Cough 12/19/2011 BYRON BOSS MD 486 Pneumonia Unspecified 12/19/2011 BYRON BOSS MD 786.2 Cough 12/19/2011 486 Pneumo madonna Unspecified 12/19/2011 786.2 Cough 12/19/2011 486 Pneumo madonna Unspecified 12/19/2011 786.2 Cough 12/19/2011 486 Pneumo madonna Unspecified 12/19/2011 786.2 Cough 12/19/2011 486 Pneumo madonna Unspecified 12/19/2011 786.2 Cough 12/19/2011 BYRON BOSS [...] DO, LADONNA K 486 Pneumonia Unspecified 12/19/2011 ASLGUERO DO, LADONNA K 786.2 Cough 12/19/2011 SALGUERO DO, LADONNA K 486 Pneumonia Unspecified 12/19/2011 SALGUERO DO, LADONNA K 786.2 Cough 12/19/2011 SALGUERO DO, LADONNA K 486 Pneumonia Unspecified 12/19/2011 SALGUERO DO, LADONNA K 786.2 Cough 12/19/2011 SALGUERO DO, ALDONNA K 486 Pneumonia Unspecified 12/19/2011 SALGUERO DO, LADONNA K 786.2 Cough 12/19/2011 MADL OTOLARYNGOLOGY TEACHER, ETELVINA L 486 Pneumonia Unspecified 12/19/2011 MADL OTOLARYNGOLOGY TEACHER, ETELVINA L 786 .2 Cough 12/19/2011 MADL OTOLARYNGOLOGY TEACHER, ETELVINA L 486 Pneumonia Unspecified 12/19/2011 MADL OTOLARYNGOLOGY TEACHER, ETELVINA L 786 .2 Cough 12/19/2011 MADL OTOLARYNGOLOGY TEACHER, ETELVINA L 486 Pneumonia Unspecified 12/19/2011 MADL OTOLARYNGOLOGY TEACHER, ETELVINA L 786 .2 Cough 12/19/2011 SALGUERO DO, LADONNA K 486 Pneumonia Unspecified 12/19/2011 SALGUERO DO, LADONNA K 786.2 Cough 12/19/2011 SALGUERO DO, LADONNA K 486 Pneumonia Unspecified 12/19/2011 SALGUERO DO, LADONNA K 786.2 Cough 12/19/2011 MADL OTOLARYNGOLOGY TEACHER, ETELVINA L 486 Pneumonia Unspecified 12/19/2011 MADL OTOLARYNGOLOGY TEACHER, ETELVINA L 786 .2 Cough 12/19/2011 MADL OTOLARYNGOLOGY TEACHER, ETELVINA L 486 Pneumonia Unspecified 12/19/2011 MADL OTOLARYNGOLOGY TEACHER, ETELVINA L 786 .2 Cough 12/19/2011 MADL OTOLARYNGOLOGY TEACHER, ETELVINA L 486 Pneumonia Unspecified 12/19/2011 MADL OTOLARYNGOLOGY TEACHER, ETELVINA L 786 .2 Cough 12/19/2011 MADL OTOLARYNGOLOGY TEACHER, ETELVINA L 486 Pneumonia Unspecified 12/19/2011 MADL OTOLARYNGOLOGY TEACHER, ETELVINA L 786 .2 Cough 12/19/2011 MADL OTOLARYNGOLOGY TEACHER, ETELVINA L 486 Pneumonia Unspecified 12/19/2011 MADL OTOLARYNGOLOGY TEACHER, ETELVINA L 786 .2 Cough 12/19/2011 MADL OTOLARYNGOLOGY TEACHER, ETELVINA L 486 Pneumonia Unspecified 12/19/2011 MADL OTOLARYNGOLOGY TEACHER, ETELVINA L 786 .2 Cough 12/19/2011 MADL OTOLARYNGOLOGY TEACHER, ETELVINA L 486 Pneumonia Unspecified 12/19/2011 MADL OTOLARYNGOLOGY TEACHER, ETELVINA L 786 .2 Cough 12/19/2011 SALGUERO DO, LADONNA K 486 Pneumonia Unspecified 12/19/2011 SALGUERO DO, LADONNA K 786.2 Cough 12/19/2011 SALGUERO DO, LADONNA K 486 Pneumonia Unspecified 12/19/2011 ASLGUERO DO, LADONNA K 786.2 Cough 12/19/2011 MADL OTOLARYNGOLOGY TEACHER, ETELVINA L 486 Pneumonia Unspecified 12/19/2011 MADL OTOLARYNGOLOGY TEACHER, ETELVINA L 786 .2 Cough 12/19/2011 SALGUERO DO, LADONNA K 486 Pneumonia Unspecified 12/19/2011 SALGUERO DO, LADONNA K 786.2 Cough 12/19/2011 MADL OTOLARYNGOLOGY TEACHER, ETELVINA L 486 Pneumonia Unspecified 12/19/2011 MADL OTOLARYNGOLOGY TEACHER, ETELVINA L 786 .2 Cough 01/06/2012 PALOMA MORA APRNNDA S 491.9 BRONCHITIS, CHRONIC UNSPEC 01/06/2012 MORGAN OTOLARYNGOLOGY TEACHERPALOMA BowserNDA S 780.79 MALAISE AND FATIGUE 01/06/2012 491.9 Bron chitis, Chronic Unspec 01/06/2012 780.79 Mal aise And Fatigue 01/06/2012 MORGAN HARRIS LAURIE S 491.9 Bronchitis, Chronic Unspec 01/06/2012 MORGAN OTOLARYNGOLOGY TEACHER, LAURIE S 780.79 Malaise And Fatigue 01/06/2012 MORGAN OTOLARYNGOLOGY TEACHER, LAURIE S 491.9 Bronchitis, Chronic Unspec 01/06/2012 MORGAN OTOLARYNGOLOGY TEACHER, LAURIE S 780.79 Malaise And Fatigue 01/06/2012 ROMELIA FISCHER MD 491. 9 Bronchitis, Chronic Unspec 01/06/2012 ROMELIA FISCHER MD 780. 79 Malaise And Fatigue 01/06/2012 BYRON BOSS MD 491.9 Bronchitis, Chronic Unspec 01/06/2012 BYRON BOSS MD 780.79 Malaise And Fatigue 01/06/2012 491.9 Bron chitis, Chronic Unspec 01/06/2012 780.79 Mal aise And Fatigue 01/06/2012 491.9 Bron chitis, Chronic Unspec 01/06/2012 780.79 Mal aise And Fatigue 01/06/2012 491.9 Bron chitis, Chronic Unspec 01/06/2012 780.79 Mal aise And Fatigue 01/06/2012 491.9 Bron chitis, Chronic Unspec 01/06/2012 780.79 Mal aise And Fatigue 01/06/2012 BYRON BOSS MD1.9 Bronchitis, Chronic Unspec 01/06/2012 BYRON BOSS MD 780.79 Malaise And Fatigue 01/06/2012 BYRON BOSS MD1.9 Bronchitis, Chronic Unspec 01/06/2012 BYRON BOSS MD 780.79 Malaise And Fatigue 01/06/2012 SALGUERO DO LADONNA Adriana 491.9 Bronchitis, Chronic Unspec 01/06/2012 SALGUERO DO [...] K 780.79 Malaise And Fatigue 01/06/2012 MADL OTOLARYNGOLOGY TEACHER, ETELVINA L 491 .9 Bronchitis, Chronic Unspec 01/06/2012 MADL OTOLARYNGOLOGY TEACHER, ETELVINA L 780 .79 Malaise And Fatigue 01/06/2012 MADL OTOLARYNGOLOGY TEACHER, ETELVINA L 491 .9 Bronchitis, Chronic Unspec 01/06/2012 MADL OTOLARYNGOLOGY TEACHER, ETELVINA L 780 .79 Malaise And Fatigue 01/06/2012 MADL OTOLARYNGOLOGY TEACHER, ETELVINA L 491 .9 Bronchitis, Chronic Unspec 01/06/2012 MADL OTOLARYNGOLOGY TEACHER, ETELVINA L 780 .79 Malaise And Fatigue 01/06/2012 SALGUERO DO, LADONNA K 491.9 Bronchitis, Chronic Unspec 01/06/2012 SALGUERO DO, LADONNA K 780.79 Malaise And Fatigue 01/06/2012 SALGUERO DO, LADONNA K 491.9 Bronchitis, Chronic Unspec 01/06/2012 SALGUERO DO, LADONNA K 780.79 Malaise And Fatigue 01/06/2012 MADL OTOLARYNGOLOGY TEACHER, ETELVINA L 491 .9 Bronchitis, Chronic Unspec 01/06/2012 MADL OTOLARYNGOLOGY TEACHER, ETELVINA L 780 .79 Malaise And Fatigue 01/06/2012 MADL OTOLARYNGOLOGY TEACHER, ETELVINA L 491 .9 Bronchitis, Chronic Unspec 01/06/2012 MADL OTOLARYNGOLOGY TEACHER, ETELVINA L 780 .79 Malaise And Fatigue 01/06/2012 MADL OTOLARYNGOLOGY TEACHER, ETELVINA L 491 .9 Bronchitis, Chronic Unspec 01/06/2012 MADL OTOLARYNGOLOGY TEACHER, ETELVINA L 780 .79 Malaise And Fatigue 01/06/2012 MADL OTOLARYNGOLOGY TEACHER, ETELVINA L 491 .9 Bronchitis, Chronic Unspec 01/06/2012 MADL OTOLARYNGOLOGY TEACHER, ETELVINA L 780 .79 Malaise And Fatigue 01/06/2012 MADL OTOLARYNGOLOGY TEACHER, ETELVINA L 491 .9 Bronchitis, Chronic Unspec 01/06/2012 MADL OTOLARYNGOLOGY TEACHER, ETELVINA L 780 .79 Malaise And Fatigue 01/06/2012 MADL OTOLARYNGOLOGY TEACHER, ETELVINA L 491 .9 Bronchitis, Chronic Unspec 01/06/2012 MADL OTOLARYNGOLOGY TEACHER, ETELVINA L 780 .79 Malaise And Fatigue 01/06/2012 MADL OTOLARYNGOLOGY TEACHER, ETELVINA L 491 .9 Bronchitis, Chronic Unspec 01/06/2012 MADL OTOLARYNGOLOGY TEACHER, ETELVINA L 780 .79 Malaise And Fatigue 01/06/2012 SALGUERO DO, LADONNA K 491.9 Bronchitis, Chronic Unspec 01/06/2012 SALGUERO DO, LADONNA K 780.79 Malaise And Fatigue 01/06/2012 SALGUERO DO, LADONNA K 491.9 Bronchitis, Chronic Unspec 01/06/2012 SALGUERO DO, LADONNA K 780.79 Malaise And Fatigue 01/06/2012 MADL OTOLARYNGOLOGY TEACHER, ETELVINA L 491 .9 Bronchitis, Chronic Unspec 01/06/2012 MADL OTOLARYNGOLOGY TEACHER, ETELVINA L 780 .79 Malaise And Fatigue 01/06/2012 SALGUERO DO, LADONNA K 491.9 Bronchitis, Chronic Unspec 01/06/2012 SALGUERO DO, LADONNA K 780.79 Malaise And Fatigue 01/06/2012 MADL OTOLARYNGOLOGY TEACHER, ETELVINA L 491 .9 Bronchitis, Chronic Unspec 01/06/2012 MADL OTOLARYNGOLOGY TEACHER, ETELVINA L 780 .79 Malaise And Fatigue 01/30/2012 Ot 250.00 MICHELE B MELVA WO COMPL, TYPE II OR UNSPEC TY 01/30/2012 Ot 272.0 PURE HYPERCHOLESTEROLEM 01/30/2012 Ot 272.4 HYPE RLIPIDEMIA NEC/NOS 01/30/2012 Ot 276.1 HYPO SMOLALITY 01/30/2012 Ot 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 01/30/2012 Ot 276.8 HYPO POTASSEMIA 01/30/2012 Ot 278.00 OBE SITY, NOS 01/30/2012 Ot 300.4 DYST HYMIC DISORDER 01/30/2012 Ot 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 01/30/2012 Ot 401.9 HYPE RTENSION NOS 01/30/2012 Ot 414.01 COR ONARY ATHEROSCLEROSIS OF [place] CORON 01/30/2012 Ot 424.1 AORT IC VALVE DISORDER 01/30/2012 Ot 426.3 LEFT BB BLOCK NEC 01/30/2012 Ot 472.0 SUPERVISOR SANDING RONAN RHINITIS 01/30/2012 Ot 493.20 CHR ONIC OBSTRUCTIVE ASTHMA, NOS 01/30/2012 Ot 530.81 ESO PHAGEAL REFLUX 01/30/2012 Ot 593.9 KIKI L URETERAL DIS NOS 01/30/2012 Ot 596.51 HYP ERTONICITY OF BLADDER 01/30/2012 Ot 599.82 INT RINSIC (URETHRA) SPHINCTER DEFICIENCY 01/30/2012 Ot 625.6 FEM STRESS INCONTINENCE 01/30/2012 Ot E944.4 ADV EFF DIURETICS NEC 01/30/2012 Ot V45.82 PER CUTANEOUS TRANSLUM CORON ANGIOPLASTY 01/30/2012 Ot V58.63 YIN G- TERM(CURRENT)USE OF ANTIPLATELET/AN 01/30/2012 Ot V58.69 OTH MED,LT,CURRENT USE 01/30/2012 Ot V85.36 BOD Y MASS INDEX 36.0-36.9, ADULT 02/02/2012 Ot 250.00 MICHELE B MELVA WO COMPL, TYPE II OR UNSPEC TY 02/02/2012 Ot 272.4 HYPE RLIPIDEMIA NEC/NOS 02/02/2012 Ot 276.8 HYPO POTASSEMIA 02/02/2012 Ot 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 02/02/2012 Ot 414.01 COR ONARY ATHEROSCLEROSIS OF [place] CORON 02/02/2012 Ot 458.9 HYPO TENSION NOS 02/02/2012 Ot 493.22 CHR ONIC OBSTRUCTIVE ASTHMA, W (ACUTE) EX 02/02/2012 Ot 729.5 PAIN IN LIMB 02/02/2012 Ot 729.81 SWE LLING OF LIMB 02/02/2012 Ot 782.3 EDEMA 02/02/2012 Ot 787.20 DYS PHAGIA, UNSPECIFIED 02/02/2012 Ot 790.95 TUAN VATED C- REACTIVE PROTEIN (CRP) 02/02/2012 Ot V45.82 PER CUTANEOUS TRANSLUM CORON ANGIOPLASTY 02/02/2012 Ot V45.89 POS TSURGICAL STATES NEC 02/04/2012 LAURIE MORA APRN 728.88 RHABDOMYOLYSIS 02/04/2012 LAURIE MORA APRN S 995.1 ANGIONEUROTIC EDEMA NOT ELSEWHERE CLASSIFIED 02/04/2012 728.88 Rha bdomyolysis 02/04/2012 995.1 Emelia oneurotic Edema Not Elsewhere Classified 02/04/2012 LAURIE MORA APRN 728.88 Rhabdomyolysis 02/04/2012 LAURIE MORA APRN 995.1 Angioneurotic Edema Not Elsewhere Classified 02/04/2012 LAURIE MORA APRN 728.88 Rhabdomyolysis 02/04/2012 LAURIE MORA APRN 995.1 Angioneurotic Edema Not Elsewhere Classified 02/04/2012 ROMELIA FISCHER MD 728. 88 Rhabdomyolysis 02/04/2012 ROMELIA FISCHER MD 995. 1 Angioneurotic Edema Not Elsewhere Classified 02/04/2012 BYRON BOSS MD 728.88 Rhabdomyolysis 02/04/2012 BYRON BOSS MD 995.1 Angioneurotic Edema Not Elsewhere Classified 02/04/2012 728.88 Rha bdomyolysis 02/04/2012 995.1 Emelia oneurotic Edema Not Elsewhere Classified 02/04/2012 728.88 Rha bdomyolysis 02/04/2012 995.1 Emelia oneurotic Edema Not Elsewhere Classified 02/04/2012 728.88 Rha bdomyolysis 02/04/2012 995.1 Emelia oneurotic Edema Not Elsewhere Classified 02/04/2012 728.88 Rha bdomyolysis 02/04/2012 995.1 Emelia oneurotic Edema Not Elsewhere Classified 02/04/2012 BYRON BOSS MD 728.88 Rhabdomyolysis 02/04/2012 BYRON BOSS MD 995.1 Angioneurotic Edema Not Elsewhere Classified 02/04/2012 BYRON BOSS MD 728.88 Rhabdomyolysis 02/04/2012 BYRON BOSS MD 995.1 Angioneurotic Edema Not Elsewhere Classified 02/04/2012 LADONNA SALGUERO DO 728.88 Rhabdomyolysis 02/04/2012 LADONNA SALGUERO DO 995.1 Angioneurotic Edema Not Elsewhere Classified 02/04/2012 BYRON BOSS MD 728.88 Rhabdomyolysis 02/04/2012 BYRON BOSS MD 995.1 Angioneurotic Edema Not Elsewhere Classified 02/04/2012 LADONNA SALGUERO DO K 728.88 Rhabdomyolysis 02/04/2012 LADONNA SALGUERO DO K 995.1 Angioneurotic Edema Not Elsewhere Classified 02/04/2012 BYRON BOSS MD 728.88 Rhabdomyolysis 02/04/2012 BYRON BOSS MD 995.1 Angioneurotic Edema Not Elsewhere Classified 02/04/2012 BYRON BOSS MD 728.88 Rhabdomyolysis 02/04/2012 KARYN OLVERA, BYRON Bruner 995.1 Angioneurotic Edema Not Elsewhere Classified 02/04/2012 [...] Angioneurotic Edema Not Elsewhere Classified 02/04/2012 MADL OTOLARYNGOLOGY TEACHER, ETELVINA L 728 .88 Rhabdomyolysis 02/04/2012 MADL OTOLARYNGOLOGY TEACHER, ETELVINA L 995 .1 Angioneurotic Edema Not Elsewhere Classified 02/04/2012 MADL OTOLARYNGOLOGY TEACHER, ETELVINA L 728 .88 Rhabdomyolysis 02/04/2012 MADL OTOLARYNGOLOGY TEACHER, ETELVINA L 995 .1 Angioneurotic Edema Not Elsewhere Classified 02/04/2012 MADL OTOLARYNGOLOGY TEACHER, ETELVINA L 728 .88 Rhabdomyolysis 02/04/2012 MADL OTOLARYNGOLOGY TEACHER, ETELVINA L 995 .1 Angioneurotic Edema Not Elsewhere Classified 02/04/2012 SALGUERO DO, LADONNA K 728.88 Rhabdomyolysis 02/04/2012 SALGUERO DO, LADONNA K 995.1 Angioneurotic Edema Not Elsewhere Classified 02/04/2012 SALGUERO DO, LADONNA K 728.88 Rhabdomyolysis 02/04/2012 SALGUERO DO, LADONNA K 995.1 Angioneurotic Edema Not Elsewhere Classified 02/04/2012 MADL OTOLARYNGOLOGY TEACHER, ETELVINA L 728 .88 Rhabdomyolysis 02/04/2012 MADL OTOLARYNGOLOGY TEACHER, ETELVINA L 995 .1 Angioneurotic Edema Not Elsewhere Classified 02/04/2012 MADL OTOLARYNGOLOGY TEACHER, ETELVINA L 728 .88 Rhabdomyolysis 02/04/2012 MADL OTOLARYNGOLOGY TEACHER, ETELVINA L 995 .1 Angioneurotic Edema Not Elsewhere Classified 02/04/2012 MADL OTOLARYNGOLOGY TEACHER, ETELVINA L 728 .88 Rhabdomyolysis 02/04/2012 MADL OTOLARYNGOLOGY TEACHER, ETELVINA L 995 .1 Angioneurotic Edema Not Elsewhere Classified 02/04/2012 MADL OTOLARYNGOLOGY TEACHER, ETELVINA L 728 .88 Rhabdomyolysis 02/04/2012 MADL OTOLARYNGOLOGY TEACHER, ETELVINA L 995 .1 Angioneurotic Edema Not Elsewhere Classified 02/04/2012 MADL OTOLARYNGOLOGY TEACHER, ETELVINA L 728 .88 Rhabdomyolysis 02/04/2012 MADL OTOLARYNGOLOGY TEACHER, ETELVINA L 995 .1 Angioneurotic Edema Not Elsewhere Classified 02/04/2012 MADL OTOLARYNGOLOGY TEACHER, ETELVINA L 728 .88 Rhabdomyolysis 02/04/2012 MADL OTOLARYNGOLOGY TEACHER, ETELVINA L 995 .1 Angioneurotic Edema Not Elsewhere Classified 02/04/2012 MADL OTOLARYNGOLOGY TEACHER, ETELVINA L 728 .88 Rhabdomyolysis 02/04/2012 MADL OTOLARYNGOLOGY TEACHER, ETELVINA L 995 .1 Angioneurotic Edema Not Elsewhere Classified 02/04/2012 SALGUERO DO, LADONNA K 728.88 Rhabdomyolysis 02/04/2012 SALGUERO DO, LADONNA K 995.1 Angioneurotic Edema Not Elsewhere Classified 02/04/2012 SALGUERO DO, LADONNA K 728.88 Rhabdomyolysis 02/04/2012 SALGUERO DO, LADONNA K 995.1 Angioneurotic Edema Not Elsewhere Classified 02/04/2012 MADL OTOLARYNGOLOGY TEACHER, ETELVINA L 728 .88 Rhabdomyolysis 02/04/2012 MADL OTOLARYNGOLOGY TEACHER, ETELVINA L 995 .1 Angioneurotic Edema Not Elsewhere Classified 02/04/2012 SALGUERO DO, LADONNA K 728.88 Rhabdomyolysis 02/04/2012 SALGUERO DO, LADONNA K 995.1 Angioneurotic Edema Not Elsewhere Classified 02/04/2012 MADL OTOLARYNGOLOGY TEACHER, ETELVINA L 728 .88 Rhabdomyolysis 02/04/2012 MADL OTOLARYNGOLOGY TEACHER, ETELVINA L 995 .1 Angioneurotic Edema Not Elsewhere Classified 02/06/2012 LAURIE MORA APRN S 782.3 EDEMA 02/06/2012 782.3 EDEMA 02/06/2012 MORGAN OTOLARYNGOLOGY TEACHER, LAURIE S 782.3 EDEMA 02/06/2012 MORGAN OTOLARYNGOLOGY TEACHER, LAURIE S 782.3 EDEMA 02/06/2012 AMADO OLVERA, ROMELIA 782. 3 EDEMA 02/06/2012 KARYN OLVERA, BYRON Bruner 782.3 [...] M 782.3 EDEMA 02/06/2012 KARYN OLVERA, BYRON Bruner 782.3 EDEMA 02/06/2012 SALGUERO DO, LADONNA K 782.3 EDEMA 02/06/2012 SALGUERO DO, LADONNA K 782.3 EDEMA 02/06/2012 SALGUERO DO, LADONNA K 782.3 EDEMA 02/06/2012 SALGUERO DO, LADONNA K 782.3 EDEMA 02/06/2012 MADL OTOLARYNGOLOGY TEACHER, ETELVINA L 782 .3 EDEMA 02/06/2012 MADL OTOLARYNGOLOGY TEACHER, ETELVINA L 782 .3 EDEMA 02/06/2012 MADL OTOLARYNGOLOGY TEACHER, ETELVINA L 782 .3 EDEMA 02/06/2012 SALGUERO DO, LADONNA K 782.3 EDEMA 02/06/2012 SALGUERO DO, LADONNA K 782.3 EDEMA 02/06/2012 MADL OTOLARYNGOLOGY TEACHER, ETELVINA L 782 .3 EDEMA 02/06/2012 MADL OTOLARYNGOLOGY TEACHER, ETELVINA L 782 .3 EDEMA 02/06/2012 MADL OTOLARYNGOLOGY TEACHER, ETELVINA L 782 .3 EDEMA 02/06/2012 MADL OTOLARYNGOLOGY TEACHER, ETELVINA L 782 .3 EDEMA 02/06/2012 MADL OTOLARYNGOLOGY TEACHER, ETELVINA L 782 .3 EDEMA 02/06/2012 MADL OTOLARYNGOLOGY TEACHER, ETELVINA L 782 .3 EDEMA 02/06/2012 MADL OTOLARYNGOLOGY TEACHER, ETELVINA L 782 .3 EDEMA 02/06/2012 SALGUERO DO, LADONNA K 782.3 EDEMA 02/06/2012 SALGUERO DO, LADONNA K 782.3 EDEMA 02/06/2012 MADL OTOLARYNGOLOGY TEACHER, ETELVINA L 782 .3 EDEMA 02/06/2012 SALGUERO DO, LADONNA K 782.3 EDEMA 02/06/2012 MADL OTOLARYNGOLOGY TEACHER, ETELVINA L 782 .3 EDEMA 02/11/2012 MORGAN OTOLARYNGOLOGY TEACHER, LARUIE S 079.99 VIRAL SYNDROME 02/11/2012 079.99 Vir al Syndrome 02/11/2012 MORGAN OTOLARYNGOLOGY TEACHER, LAURIE S 079.99 Viral Syndrome 02/11/2012 MORGAN HARRIS, LAURIE S 079.99 Viral Syndrome 02/11/2012 AMADO OLVERA, ROMELIA 079. 99 Viral Syndrome 02/11/2012 BYRON BOSS MD 079.99 Viral Syndrome 02/11/2012 079.99 Vir al Syndrome 02/11/2012 079.99 Vir al Syndrome 02/11/2012 079.99 Vir al Syndrome 02/11/2012 079.99 Vir al Syndrome 02/11/2012 BYRON BOSS MD 079.99 Viral Syndrome 02/11/2012 BYRON BOSS MD 079.99 Viral Syndrome 02/11/2012 LADONNA SALGUERO DO K 079.99 Viral Syndrome 02/11/2012 BYRON BOSS MD 079.99 Viral Syndrome 02/11/2012 SALGUERO LADONNA PRAKASH K 079.99 Viral Syndrome 02/11/2012 BYRON BOSS MD 079.99 Viral Syndrome 02/11/2012 BYRON BOSS MD 079.99 Viral Syndrome 02/11/2012 SALGUERO DOTEREA K 079.99 Viral Syndrome 02/11/2012 SALGUERO DO LADONNA K 079.99 Viral Syndrome 02/11/2012 SALGUERO DO, LADONNA K 079.99 Viral Syndrome 02/11/2012 SALGUERO DO LADONNA K 079.99 Viral Syndrome 02/11/2012 MADL OTOLARYNGOLOGY TEACHER, ETELVINA L 079 .99 Viral Syndrome 02/11/2012 MADL OTOLARYNGOLOGY TEACHER, ETELVINA L 079 .99 Viral Syndrome 02/11/2012 MADL OTOLARYNGOLOGY TEACHER, ETELVINA L 079 .99 Viral Syndrome 02/11/2012 SALGUERO DO, LADONNA K 079.99 Viral Syndrome 02/11/2012 SALGUERO DO, LADONNA K 079.99 Viral Syndrome 02/11/2012 MADL OTOLARYNGOLOGY TEACHER, ETELVINA L 079 .99 Viral Syndrome 02/11/2012 MADL OTOLARYNGOLOGY TEACHER, ETELVINA L 079 .99 Viral Syndrome 02/11/2012 MADL OTOLARYNGOLOGY TEACHER, ETELVINA L 079 .99 Viral Syndrome 02/11/2012 MADL OTOLARYNGOLOGY TEACHER, ETELVINA L 079 .99 Viral Syndrome 02/11/2012 MADL OTOLARYNGOLOGY TEACHER, ETELVINA L 079 .99 Viral Syndrome 02/11/2012 MADL OTOLARYNGOLOGY TEACHER, ETELVINA L 079 .99 Viral Syndrome 02/11/2012 MADL OTOLARYNGOLOGY TEACHER, ETELVINA L 079 .99 Viral Syndrome 02/11/2012 SALGUERO DO, LADONNA K 079.99 Viral Syndrome 02/11/2012 SALGUERO DO, LADONNA K 079.99 Viral Syndrome 02/11/2012 MADL OTOLARYNGOLOGY TEACHER, ETELVIAN L 079 .99 Viral Syndrome 02/11/2012 SALGUERO DO, LADONNA K 079.99 Viral Syndrome 02/11/2012 MADL OTOLARYNGOLOGY TEACHER, ETELVINA L 079 .99 Viral Syndrome 02/17/2012 LAURIE MORA APRN S 783.21 WEIGHT LOSS 02/17/2012 783.21 Dave ght Loss 02/17/2012 LAURIE MORA APRN S 783.21 Weight Loss 02/17/2012 LAURIE MORA APRN S 783.21 Weight Loss 02/17/2012 AMADO OLVERA, ROMELIA 783. 21 Weight Loss 02/17/2012 BYRON BOSS MD 783.21 Weight Loss 02/17/2012 783.21 Dave ght Loss 02/17/2012 783.21 Dave ght Loss 02/17/2012 783.21 Dave ght Loss 02/17/2012 783.21 Dave ght Loss 02/17/2012 BYRON BOSS MD 783.21 Weight Loss 02/17/2012 BYRON BOSS MD 783.21 Weight Loss 02/17/2012 SALGUERO DO, LADONNA K 783.21 Weight Loss 02/17/2012 BYRON BOSS MD 783.21 Weight Loss 02/17/2012 SALGUERO DO, LADONNA K 783.21 Weight Loss 02/17/2012 BYRON BOSS MD 783.21 Weight Loss 02/17/2012 BYRON BOSS MD 783.21 Weight Loss 02/17/2012 SALGUERO DO, LADONNA K 783.21 Weight Loss 02/17/2012 SALGUERO DO, LADONNA K 783.21 Weight Loss 02/17/2012 SALGUERO DO, LADONNA K 783.21 Weight Loss 02/17/2012 SALGUERO DO, LAODNNA K 783.21 Weight Loss 02/17/2012 MADL OTOLARYNGOLOGY TEACHER, ETELVINA L 783 .21 Weight Loss 02/17/2012 MADL OTOLARYNGOLOGY TEACHER, ETELVINA L 783 .21 Weight Loss 02/17/2012 MADL OTOLARYNGOLOGY TEACHER, ETELVINA L 783 .21 Weight Loss 02/17/2012 SALGUERO DO, LADONNA K 783.21 Weight Loss 02/17/2012 SALGUERO DO, LADONNA K 783.21 Weight Loss 02/17/2012 MADL OTOLARYNGOLOGY TEACHER, ETELVINA L 783 .21 Weight Loss 02/17/2012 MADL OTOLARYNGOLOGY TEACHER, ETELVINA L 783 .21 Weight Loss 02/17/2012 MADL OTOLARYNGOLOGY TEACHER, ETELVINA L 783 .21 Weight Loss 02/17/2012 MADL OTOLARYNGOLOGY TEACHER, ETELVINA L 783 .21 Weight Loss 02/17/2012 MADL OTOLARYNGOLOGY TEACHER, ETELVINA L 783 .21 Weight Loss 02/17/2012 MADL OTOLARYNGOLOGY TEACHER, ETELVINA L 783 .21 Weight Loss 02/17/2012 MADL OTOLARYNGOLOGY TEACHER, ETELVINA L 783 .21 Weight Loss 02/17/2012 SALGUERO DO, LADONNA K 783.21 Weight Loss 02/17/2012 SALGUERO DO, LADONNA K 783.21 Weight Loss 02/17/2012 MADL OTOLARYNGOLOGY TEACHER, ETELVINA L 783 .21 Weight Loss 02/17/2012 SALGUERO DO, LADONNA K 783.21 Weight Loss 02/17/2012 MADL OTOLARYNGOLOGY TEACHER, ETELVINA L 783 .21 Weight Loss 02/24/2012 MORGAN OTOLARYNGOLOGY TEACHER, LAURIE S 787.91 DIARRHEA 02/24/2012 787.91 Michele rrhea 02/24/2012 MORGAN HARRIS, LAURIE S 787.91 Diarrhea 02/24/2012 MORGAN OTOLARYNGOLOGY TEACHER, LAURIE S 787.91 Diarrhea 02/24/2012 ROMELIA FISCHER MD 787. 91 Diarrhea 02/24/2012 BYRON BOSS MD 787.91 Diarrhea 02/24/2012 787.91 Michele rrhea 02/24/2012 787.91 Michele rrhea 02/24/2012 787.91 Michele rrhea 02/24/2012 787.91 Michele rrhea 02/24/2012 BYRON BOSS MD 787.91 Diarrhea 02/24/2012 BYRON BOSS MD 787.91 Diarrhea 02/24/2012 SALGUERO DO LADONNA K 787.91 Diarrhea 02/24/2012 BYRON BOSS MD 787.91 Diarrhea 02/24/2012 SALGUERO DO LADONNA K 787.91 Diarrhea 02/24/2012 BYRON BOSS MD 787.91 Diarrhea 02/24/2012 BYRON BOSS MD 787.91 Diarrhea 02/24/2012 SALGUERO DO, LADONNA K 787.91 Diarrhea 02/24/2012 SALGUERO DO, LADONNA K 787.91 Diarrhea 02/24/2012 SALGUERO DO, LADONNA K 787.91 Diarrhea 02/24/2012 SALGUERO DO, LADONNA K 787.91 Diarrhea 02/24/2012 MADL OTOLARYNGOLOGY TEACHER, ETELVINA L 787 .91 Diarrhea 02/24/2012 MADL OTOLARYNGOLOGY TEACHER, ETELVINA L 787 .91 Diarrhea 02/24/2012 MADL OTOLARYNGOLOGY TEACHER, ETELVINA L 787 .91 Diarrhea 02/24/2012 SALGUERO DO, LADONNA K 787.91 Diarrhea 02/24/2012 SALGUEOR DO, LADONNA K 787.91 Diarrhea 02/24/2012 MADL OTOLARYNGOLOGY TEACHER, ETELVINA L 787 .91 Diarrhea 02/24/2012 MADL OTOLARYNGOLOGY TEACHER, ETELVINA L 787 .91 Diarrhea 02/24/2012 MADL OTOLARYNGOLOGY TEACHER, ETELVINA L 787 .91 Diarrhea 02/24/2012 MADL OTOLARYNGOLOGY TEACHER, ETELVINA L 787 .91 Diarrhea 02/24/2012 MADL OTOLARYNGOLOGY TEACHER, ETELVINA L 787 .91 Diarrhea 02/24/2012 MADL OTOLARYNGOLOGY TEACHER, ETELVINA L 787 .91 Diarrhea 02/24/2012 MADL OTOLARYNGOLOGY TEACHER, ETELVINA L 787 .91 Diarrhea 02/24/2012 SALGUERO DO, LADONNA K 787.91 Diarrhea 02/24/2012 SALGUERO DO, LADONNA K 787.91 Diarrhea 02/24/2012 MADL OTOLARYNGOLOGY TEACHER, ETELVINA L 787 .91 Diarrhea 02/24/2012 SALGUERO DO, LADONNA K 787.91 Diarrhea 02/24/2012 MADL OTOLARYNGOLOGY TEACHER, ETELVINA L 787 .91 Diarrhea 04/07/2012 LAURIE MORA APRN S 787.20 DYSPHAGIA, UNSPECIFIED 04/07/2012 787.20 Dys phagia, Unspecified 04/07/2012 LAURIE MORA APRN S 787.20 Dysphagia, Unspecified 04/07/2012 LAURIE MORA APRN S 787.20 Dysphagia, Unspecified 04/07/2012 ROMELIA FISCHER MD 787. 20 Dysphagia, Unspecified 04/07/2012 BYRON BOSS MD 787.20 Dysphagia, Unspecified 04/07/2012 787.20 Dys phagia, Unspecified 04/07/2012 787.20 Dys phagia, Unspecified 04/07/2012 787.20 Dys phagia, Unspecified 04/07/2012 787.20 Dys phagia, Unspecified 04/07/2012 BYRON BOSS MD 787.20 Dysphagia, Unspecified 04/07/2012 BYRON BOSS MD 787.20 Dysphagia, Unspecified 04/07/2012 LADONNA SALGUERO DO 787.20 Dysphagia, Unspecified 04/07/2012 BYRON BOSS MD 787.20 Dysphagia, Unspecified 04/07/2012 LADONNA SALGUERO DO 787.20 Dysphagia, Unspecified 04/07/2012 BYRON BOSS MD 787.20 Dysphagia, Unspecified 04/07/2012 BYRON BOSS MD 787.20 Dysphagia, Unspecified 04/07/2012 LADONNA SALGUERO DO 787.20 Dysphagia, Unspecified 04/07/2012 SALGUERO DO, LADONNA K 787.20 Dysphagia, Unspecified 04/07/2012 SALGUERO DO, LADONNA K 787.20 Dysphagia, Unspecified 04/07/2012 SALGUERO DO, LADONNA K 787.20 Dysphagia, Unspecified 04/07/2012 MADL OTOLARYNGOLOGY TEACHER, ETELVINA L 787 .20 Dysphagia, Unspecified 04/07/2012 MADL OTOLARYNGOLOGY TEACHER, ETELVINA L 787 .20 Dysphagia, Unspecified 04/07/2012 MADL OTOLARYNGOLOGY TEACHER, ETELVINA L 787 .20 Dysphagia, Unspecified 04/07/2012 SALGUERO DO, LADONNA K 787.20 Dysphagia, Unspecified 04/07/2012 SALGUERO DO, LADONNA K 787.20 Dysphagia, Unspecified 04/07/2012 MADL OTOLARYNGOLOGY TEACHER, ETELVINA L 787 .20 Dysphagia, Unspecified 04/07/2012 MADL OTOLARYNGOLOGY TEACHER, ETELVINA L 787 .20 Dysphagia, Unspecified 04/07/2012 MADL OTOLARYNGOLOGY TEACHER, ETELVINA L 787 .20 Dysphagia, Unspecified 04/07/2012 MADL OTOLARYNGOLOGY TEACHER, ETELVINA L 787 .20 Dysphagia, Unspecified 04/07/2012 MADL OTOLARYNGOLOGY TEACHER, ETELVINA L 787 .20 Dysphagia, Unspecified 04/07/2012 MADL OTOLARYNGOLOGY TEACHER, ETELVINA L 787 .20 Dysphagia, Unspecified 04/07/2012 MADL OTOLARYNGOLOGY TEACHER, ETELVINA L 787 .20 Dysphagia, Unspecified 04/07/2012 SALGUERO DO, LADONNA K 787.20 Dysphagia, Unspecified 04/07/2012 SALGUERO DO, LADONNA K 787.20 Dysphagia, Unspecified 04/07/2012 MADL OTOLARYNGOLOGY TEACHER, ETELVINA L 787 .20 Dysphagia, Unspecified 04/07/2012 SALGUERO DO, LADONNA K 787.20 Dysphagia, Unspecified 04/07/2012 MADL OTOLARYNGOLOGY TEACHER, ETELVINA L 787 .20 Dysphagia, Unspecified 04/16/2012 Ot 793.19 OTH ER NONSPECIFIC ABNORMAL FINDING OF EVONNE 04/16/2012 Ot 922.1 CONT USION OF CHEST WALL 04/16/2012 Ot 959.11 OTH INJURY OF CHEST WALL 04/16/2012 Ot E000.8 OTH ER EXTERNAL CAUSE STATUS 04/16/2012 Ot E849.0 ACC IDENT IN HOME 04/16/2012 Ot E888.9 FAL L NOS 06/03/2012 Ot 923.03 CON TUSION OF UPPER ARM 06/03/2012 Ot 959.2 SHLD R/UPPER ARM INJ NOS 06/03/2012 Ot E000.8 OTH ER EXTERNAL CAUSE STATUS 06/03/2012 Ot E849.0 ACC IDENT IN HOME 06/03/2012 Ot E884.5 FAL L FROM OTHER FURNITURE 06/20/2012 Ot 250.00 MICHELE B MELVA WO COMPL, TYPE II OR UNSPEC TY 06/20/2012 Ot 272.4 HYPE RLIPIDEMIA NEC/NOS 06/20/2012 Ot 278.01 MOR BID OBESITY 06/20/2012 Ot 300.00 ANX IETY STATE NOS 06/20/2012 Ot 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 06/20/2012 Ot 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 06/20/2012 Ot 496 CHR AI RWAY OBSTRUCT NEC 06/20/2012 Ot 824.4 FX B IMALLEOLAR- CLOSED 06/20/2012 Ot E000.8 OTH ER EXTERNAL CAUSE STATUS 06/20/2012 Ot E013.8 OTH ER PERSONAL HYGIENE ACTIVITY 06/20/2012 Ot E849.0 ACC IDENT IN HOME 06/20/2012 Ot E884.6 FAL L FROM COMMODE,TOILET 06/20/2012 Ot V45.82 PER CUTANEOUS TRANSLUM CORON ANGIOPLASTY 06/20/2012 Ot V85.41 BOD Y MASS INDEX 40.0-44.9, ADULT 09/04/2012 Ot 466.0 ACUT E BRONCHITIS 09/04/2012 Ot 786.2 COUGH 09/07/2012 LAURIE MORA APRN V03.82 PPV23 (PNEUMOVAX) DX 09/07/2012 LAURIE MORA APRN V76.10 BREAST CANCER SCREENING 09/07/2012 LAURIE MORA APRN V76.12 MAMMOGRAM SCREENING 09/07/2012 LAURIE MORA APRN V76.2 CERVICAL CANCER SCREENING (PAP SMEAR) 09/07/2012 V03.82 Ppv 23 (pneumovax) Dx 09/07/2012 V76.10 Paloma ast Cancer Screening 09/07/2012 V76.12 Guy mogram Screening 09/07/2012 V76.2 Cerv ical Cancer Screening (pap Smear) 09/07/2012 PALOMA MORA APRNNDA S V03.82 Ppv23 (pneumovax) Dx 09/07/2012 MORGAN OTOLARYNGOLOGY TEACHERPALOMA BowserNDA S V76.10 Breast Cancer Screening 09/07/2012 MORGAN OTOLARYNGOLOGY TEACHERPALOMA BowserNDA S V76.12 Mammogram Screening 09/07/2012 MORGAN OTOLARYNGOLOGY TEACHERPALOMA BowserNDA S V76.2 Cervical Cancer Screening (pap Smear) 09/07/2012 MORGAN OTOLARYNGOLOGY TEACHERPALOMA BowserNDA S V03.82 Ppv23 (pneumovax) Dx 09/07/2012 PALOMA MORA APRNNDA S V76.10 Breast Cancer Screening 09/07/2012 SUSHANT MORA APRNA S V76.12 Mammogram Screening 09/07/2012 SUSHANT MORA APRNA S V76.2 Cervical Cancer Screening (pap Smear) 09/07/2012 ROMELIA FISCHER MD V03. 82 Ppv23 (pneumovax) Dx 09/07/2012 ROMELIA FISCHER MD V76. 10 Breast Cancer Screening 09/07/2012 ROMELIA FISCHER MD V76. 12 Mammogram Screening 09/07/2012 ROMELIA FISCHER MD V76. 2 Cervical Cancer Screening (pap Smear) 09/07/2012 BYRON BOSS MD V03.82 Ppv23 (pneumovax) Dx 09/07/2012 BYRON BOSS MD V76.10 Breast Cancer Screening 09/07/2012 BYRON BOSS MD V76.12 Mammogram Screening 09/07/2012 BYRON BOSS MD V76.2 Cervical Cancer Screening (pap Smear) 09/07/2012 V03.82 Ppv 23 (pneumovax) Dx 09/07/2012 V76.10 Paloma ast Cancer Screening 09/07/2012 V76.12 Guy mogram Screening 09/07/2012 V76.2 Cerv ical Cancer Screening (pap Smear) 09/07/2012 V03.82 Ppv 23 (pneumovax) Dx 09/07/2012 V76.10 Paloma ast Cancer Screening 09/07/2012 V76.12 Guy mogram Screening 09/07/2012 V76.2 Cerv ical Cancer Screening (pap Smear) 09/07/2012 V03.82 Ppv 23 (pneumovax) Dx 09/07/2012 V76.10 Paloma ast Cancer Screening 09/07/2012 V76.12 Guy mogram Screening 09/07/2012 V76.2 Cerv ical Cancer Screening (pap Smear) 09/07/2012 V03.82 Ppv 23 (pneumovax) Dx 09/07/2012 V76.10 Paloma ast Cancer Screening 09/07/2012 V76.12 Guy mogram Screening 09/07/2012 V76.2 Cerv ical Cancer Screening (pap Smear) 09/07/2012 BYRON BOSS [...] SALGUERO DO V03.82 Ppv23 (pneumovax) Dx 09/07/2012 SALGUERO DO, LADONNA K V76.10 Breast Cancer Screening 09/07/2012 TERE [...] Ppv23 (pneumovax) Dx 09/07/2012 LADONNA SALGUERO DO K V76.10 Breast Cancer Screening 09/07/2012 TERE SALGUERO DOA K V76.12 Mammogram Screening 09/07/2012 TERE SALGUERO DOA K V76.2 Cervical Cancer Screening (pap Smear) 09/07/2012 LADONNA SALGUERO DO V03.82 Ppv23 (pneumovax) Dx 09/07/2012 LADONNA SALGUERO DO K V76.10 Breast Cancer Screening 09/07/2012 TERE SALGUERO DOA K V76.12 Mammogram Screening 09/07/2012 TERE SALGUERO DOA K V76.2 Cervical Cancer Screening (pap Smear) 09/07/2012 TERE SALGUERO DOA K V03.82 Ppv23 (pneumovax) Dx 09/07/2012 TERE SALGUERO DOA K V76.10 Breast Cancer Screening 09/07/2012 NOEMY PRAKASH LADONNA K V76.12 Mammogram Screening 09/07/2012 TERE SALGUERO DOA K V76.2 Cervical Cancer Screening (pap Smear) 09/07/2012 TERE SALGUERO DOA K V03.82 Ppv23 (pneumovax) Dx 09/07/2012 SALGUERO DO, LADONNA K V76.10 Breast Cancer Screening 09/07/2012 SALGUERO DO, LADONNA K V76.12 Mammogram Screening 09/07/2012 SALGUERO DO, LADONNA K V76.2 Cervical Cancer Screening (pap Smear) 09/07/2012 MADL OTOLARYNGOLOGY TEACHER, ETELVINA L V03 .82 Ppv23 (pneumovax) Dx 09/07/2012 MADL OTOLARYNGOLOGY TEACHER, ETELVINA L V76 .10 Breast Cancer Screening 09/07/2012 MADL OTOLARYNGOLOGY TEACHER, ETELVINA L V76 .12 Mammogram Screening 09/07/2012 MADL OTOLARYNGOLOGY TEACHER, ETELVINA L V76 .2 Cervical Cancer Screening (pap Smear) 09/07/2012 MADL OTOLARYNGOLOGY TEACHER, ETELVINA L V03 .82 Ppv23 (pneumovax) Dx 09/07/2012 MADL OTOLARYNGOLOGY TEACHER, ETELVINA L V76 .10 Breast Cancer Screening 09/07/2012 MADL OTOLARYNGOLOGY TEACHER, ETELVINA L V76 .12 Mammogram Screening 09/07/2012 MADL OTOLARYNGOLOGY TEACHER, ETELVINA L V76 .2 Cervical Cancer Screening (pap Smear) 09/07/2012 MADL OTOLARYNGOLOGY TEACHER, ETELVINA L V03 .82 Ppv23 (pneumovax) Dx 09/07/2012 MADL OTOLARYNGOLOGY TEACHER, ETELVINA L V76 .10 Breast Cancer Screening 09/07/2012 MADL OTOLARYNGOLOGY TEACHER, ETELVINA L V76 .12 Mammogram Screening 09/07/2012 MADL OTOLARYNGOLOGY TEACHER, ETELVINA L V76 .2 Cervical Cancer Screening (pap Smear) 09/07/2012 SALGUERO [...] Cervical Cancer Screening (pap Smear) 09/07/2012 MAD OTOLARYNGOLOGY TEACHER, ETELVINA L V03 .82 Ppv23 (pneumovax) Dx 09/07/2012 MADL OTOLARYNGOLOGY TEACHER, ETELVINA L V76 .10 Breast Cancer Screening 09/07/2012 MADL OTOLARYNGOLOGY TEACHER, ETELVINA L V76 .12 Mammogram Screening 09/07/2012 MAD OTOLARYNGOLOGY TEACHER, ETELVINA L V76 .2 Cervical Cancer Screening (pap Smear) 09/07/2012 MADL OTOLARYNGOLOGY TEACHER, ETELVINA L V03 .82 Ppv23 (pneumovax) Dx 09/07/2012 MAD OTOLARYNGOLOGY TEACHER, ETELVINA L V76 .10 Breast Cancer Screening 09/07/2012 MAD OTOLARYNGOLOGY TEACHER, ETELVINA L V76 .12 Mammogram Screening 09/07/2012 MAD OTOLARYNGOLOGY TEACHER, ETELVINA L V76 .2 Cervical Cancer Screening (pap Smear) 09/07/2012 MAD OTOLARYNGOLOGY TEACHER, ETELVINA L V03 .82 Ppv23 (pneumovax) Dx 09/07/2012 HUGO OTOLARYNGOLOGY TEACHER, ETELVINA L V76 .10 Breast Cancer Screening 09/07/2012 [facility] OTOLARYNGOLOGY TEACHER, ETELVINA L V76 .12 Mammogram Screening 09/07/2012 MAD OTOLARYNGOLOGY TEACHER, ETELVINA L V76 .2 Cervical Cancer Screening (pap Smear) 09/07/2012 HUGO OTOLARYNGOLOGY TEACHER, ETELVINA L V03 .82 Ppv23 (pneumovax) Dx 09/07/2012 MAD OTOLARYNGOLOGY TEACHER, ETELVINA L V76 .10 Breast Cancer Screening 09/07/2012 MAD OTOLARYNGOLOGY TEACHER, ETELVINA L V76 .12 Mammogram Screening 09/07/2012 MAD OTOLARYNGOLOGY TEACHER, ETELVINA L V76 .2 Cervical Cancer Screening (pap Smear) 09/07/2012 MAD OTOLARYNGOLOGY TEACHER, ETELVINA L V03 .82 Ppv23 (pneumovax) Dx 09/07/2012 MAD OTOLARYNGOLOGY TEACHER, ETELVINA L V76 .10 Breast Cancer Screening 09/07/2012 MAD OTOLARYNGOLOGY TEACHER, ETELVINA L V76 .12 Mammogram Screening 09/07/2012 MAD OTOLARYNGOLOGY TEACHER, ETELVINA L V76 .2 Cervical Cancer Screening (pap Smear) 09/07/2012 MADL OTOLARYNGOLOGY TEACHER, ETELVINA L V03 .82 Ppv23 (pneumovax) Dx 09/07/2012 MADL OTOLARYNGOLOGY TEACHER, ETELVINA L V76 .10 Breast Cancer Screening 09/07/2012 MADL OTOLARYNGOLOGY TEACHER, ETELVINA L V76 .12 Mammogram Screening 09/07/2012 MADL OTOLARYNGOLOGY TEACHER, ETELVINA L V76 .2 Cervical Cancer Screening (pap Smear) 09/07/2012 MADL OTOLARYNGOLOGY TEACHER, ETELVINA L V03 .82 Ppv23 (pneumovax) Dx 09/07/2012 MADL OTOLARYNGOLOGY TEACHER, ETELVINA L V76 .10 Breast Cancer Screening 09/07/2012 MADL OTOLARYNGOLOGY TEACHER, ETELVINA L V76 .12 Mammogram Screening 09/07/2012 MADL OTOLARYNGOLOGY TEACHER, ETELVINA L V76 .2 Cervical Cancer Screening (pap Smear) 09/07/2012 SALGUERO DOTEREA K V03.82 Ppv23 (pneumovax) Dx 09/07/2012 SALGUERO DO LADONNA K V76.10 Breast Cancer Screening 09/07/2012 SALGUERO TERE PRAKASHA K V76.12 Mammogram Screening 09/07/2012 SALGUERO TERE PRAKASHA K V76.2 Cervical Cancer Screening (pap Smear) 09/07/2012 SALGUERO TERE PRAKASHA K V03.82 Ppv23 (pneumovax) Dx 09/07/2012 SALGUERO DO LADONNA K V76.10 Breast Cancer Screening 09/07/2012 SALGUERO DO LADONNA K V76.12 Mammogram Screening 09/07/2012 SALGUERO DO LADONNA K V76.2 Cervical Cancer Screening (pap Smear) 09/07/2012 AISHA OTOLARYNGOLOGY TEACHER, ETELVINA L V03 .82 Ppv23 (pneumovax) Dx 09/07/2012 MAD OTOLARYNGOLOGY TEACHER, ETELVINA L V76 .10 Breast Cancer Screening 09/07/2012 MAD OTOLARYNGOLOGY TEACHER, ETELVINA L V76 .12 Mammogram Screening 09/07/2012 MADL OTOLARYNGOLOGY TEACHER, ETELVINA L V76 .2 Cervical Cancer Screening (pap Smear) 09/07/2012 SALGUERO DO LADONNA K V03.82 Ppv23 (pneumovax) Dx 09/07/2012 SALGUERO DO LADONNA K V76.10 Breast Cancer Screening 09/07/2012 SALGUERO DO LADONNA K V76.12 Mammogram Screening 09/07/2012 LADONNA SALGUERO DO V76.2 Cervical Cancer Screening (pap Smear) 09/07/2012 ETELVINA LEONARD APRN V03 .82 Ppv23 (pneumovax) Dx 09/07/2012 SARA LEONARD APRNWNYRadha Goodman V76 .10 Breast Cancer Screening 09/07/2012 SARA LEONARD APRNAB Goodman V76 .12 Mammogram Screening 09/07/2012 SARA LEONARD APRNAB Goodman V76 .2 Cervical Cancer Screening (pap Smear) 09/08/2012 Ot 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 69 high risk medication 10/22/2012 BYRON BOSS MD V58.69 taking high-risk medication for a long time 10/22/2012 V58.69 ben ing high-risk medication for a long time 10/22/2012 V58.69 ben ing high-risk medication for a long time 10/22/2012 V58.69 ben ing high-risk medication for a long time 10/22/2012 V58.69 ben ing high-risk medication for a long time 10/22/2012 BYRON BOSS MD V58.69 taking high-risk medication for a long time 10/22/2012 BYRON BOSS MD V58.69 taking high-risk medication for a long time 10/22/2012 LADONNA SALGUERO DO V58.69 taking high-risk medication for a long [...] medication for a long time 10/22/2012 SALGUERO DO, LADONNA K V58.69 taking high-risk medication for a long time 10/22/2012 SALGUERO DO LADONNA K V58.69 taking high-risk medication for a long time 10/22/2012 MADL OTOLARYNGOLOGY TEACHER ETELVINA L V58 .69 taking high-risk medication for a long time 10/22/2012 MADL OTOLARYNGOLOGY TEACHER ETELVINA L V58 .69 taking high-risk medication for a long time 10/22/2012 MADL OTOLARYNGOLOGY TEACHER ETELVINA L V58 .69 taking high-risk medication for a long time 10/22/2012 SALGUERO DO LADONNA K V58.69 taking high-risk medication for a long time 10/22/2012 SALGUERO DO LADONNA K V58.69 taking high-risk medication for a long time 10/22/2012 MADL OTOLARYNGOLOGY TEACHER ETELVINA L V58 .69 taking high-risk medication for a long time 10/22/2012 MADL OTOLARYNGOLOGY TEACHER ETELVINA L V58 .69 taking high-risk medication for a long time 10/22/2012 MADL OTOLARYNGOLOGY TEACHER, ETELVINA L V58 .69 taking high-risk medication for a long time 10/22/2012 MADL OTOLARYNGOLOGY TEACHER, ETELVINA L V58 .69 taking high-risk medication for a long time 10/22/2012 MADL OTOLARYNGOLOGY TEACHER, ETELVINA L V58 .69 taking high-risk medication for a long time 10/22/2012 MADL OTOLARYNGOLOGY TEACHER, ETELVINA L V58 .69 taking high-risk medication for a long time 10/22/2012 MADL OTOLARYNGOLOGY TEACHER ETELVINA L V58 .69 taking high-risk medication for a long time 10/22/2012 LADONNA SALGUERO DO Adriana V58.69 taking high-risk medication for a long time 10/22/2012 LADONNA SALGUERO DO Adriana V58.69 taking high-risk medication for a long time 10/22/2012 ETELVINA LEONARD APRN V58 .69 taking high-risk medication for a long time 10/22/2012 TERE SALGUERO DORadha Wright V58.69 taking high-risk medication for a long time 10/22/2012 AISHA HUDSONNSARAETELVINA L V58 .69 taking high-risk medication for a long time 10/26/2012 Ot 250.00 MICHELE B MELVA WO COMPL, TYPE II OR UNSPEC TY 10/26/2012 Ot 278.00 OBE SITY, NOS 10/26/2012 Ot 300.00 ANX IETY STATE NOS 10/26/2012 Ot 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 10/26/2012 Ot 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 10/26/2012 Ot 401.9 HYPE RTENSION NOS 10/26/2012 Ot 414.01 COR ONARY ATHEROSCLEROSIS OF [place] CORON 10/26/2012 Ot 491.21 OBS TR CHRONIC BRONCHITIS, W (ACUTE) EXAC 10/26/2012 Ot 530.81 ESO PHAGEAL REFLUX 10/26/2012 Ot 724.5 BACK ACHE NOS 10/26/[address] PAIN NOS 10/26/2012 Ot V45.82 PER CUTANEOUS TRANSLUM CORON ANGIOPLASTY 10/26/2012 Ot V85.39 BOD Y MASS INDEX 39.0-39.9, ADULT 11/01/2012 465.9 UPPE R RESPIRATORY INFECTION 11/01/2012 LAURIE MORA APRN S 465.9 UPPER RESPIRATORY INFECTION 11/01/2012 LAURIE MORA APRN S 465.9 UPPER RESPIRATORY INFECTION 11/01/2012 AMADO OLVERA, ROMELIA 465. 9 UPPER RESPIRATORY INFECTION 11/01/2012 BYRON BOSS MD 465.9 UPPER RESPIRATORY INFECTION 11/01/2012 465.9 UPPE R RESPIRATORY INFECTION 11/01/2012 465.9 UPPE R RESPIRATORY INFECTION 11/01/2012 465.9 UPPE R RESPIRATORY INFECTION 11/01/2012 465.9 UPPE R RESPIRATORY INFECTION 11/01/2012 BYRON BOSS MD 465.9 UPPER RESPIRATORY INFECTION 11/01/2012 BYRON BOSS MD M 465.9 UPPER RESPIRATORY INFECTION 11/01/2012 SALGUERO DO, LADONNA K 465.9 UPPER RESPIRATORY INFECTION 11/01/2012 BYRON BOSS MD M 465.9 UPPER RESPIRATORY INFECTION 11/01/2012 SALGUERO DO, LADONNA K 465.9 UPPER RESPIRATORY INFECTION 11/01/2012 BYRON BOSS MD M 465.9 UPPER RESPIRATORY INFECTION 11/01/2012 BYRON BOSS MD M 465.9 UPPER RESPIRATORY INFECTION 11/01/2012 SALGUERO DO, LADONNA K 465.9 UPPER RESPIRATORY INFECTION 11/01/2012 SALGUERO DO, LADONNA K 465.9 UPPER RESPIRATORY INFECTION 11/01/2012 SALGUERO DO, LADONNA K 465.9 UPPER RESPIRATORY INFECTION 11/01/2012 SALGUERO DO, LADONNA K 465.9 UPPER RESPIRATORY INFECTION 11/01/2012 MADL OTOLARYNGOLOGY TEACHER, ETELVINA L 465 .9 UPPER RESPIRATORY INFECTION 11/01/2012 MADL OTOLARYNGOLOGY TEACHER, ETELVINA L 465 .9 UPPER RESPIRATORY INFECTION 11/01/2012 MADL OTOLARYNGOLOGY TEACHER, ETELVINA L 465 .9 UPPER RESPIRATORY INFECTION 11/01/2012 SALGUERO DO, LADONNA K 465.9 UPPER RESPIRATORY INFECTION 11/01/2012 SALGUERO DO, LADONNA K 465.9 UPPER RESPIRATORY INFECTION 11/01/2012 MADL OTOLARYNGOLOGY TEACHER, ETELVINA L 465 .9 UPPER RESPIRATORY INFECTION 11/01/2012 MADL OTOLARYNGOLOGY TEACHER, ETELVINA L 465 .9 UPPER RESPIRATORY INFECTION 11/01/2012 MADL OTOLARYNGOLOGY TEACHER, ETELVINA L 465 .9 UPPER RESPIRATORY INFECTION 11/01/2012 MADL OTOLARYNGOLOGY TEACHER, ETELVINA L 465 .9 UPPER RESPIRATORY INFECTION 11/01/2012 MADL OTOLARYNGOLOGY TEACHER, ETELVINA L 465 .9 UPPER RESPIRATORY INFECTION 11/01/2012 MADL OTOLARYNGOLOGY TEACHER, TEELVINA L 465 .9 UPPER RESPIRATORY INFECTION 11/01/2012 MADL OTOLARYNGOLOGY TEACHER, ETELVINA L 465 .9 UPPER RESPIRATORY INFECTION 11/01/2012 SALGUERO DO, LADONNA K 465.9 UPPER RESPIRATORY INFECTION 11/01/2012 SALGUERO DO, LADONNA K 465.9 UPPER RESPIRATORY INFECTION 11/01/2012 MADL OTOLARYNGOLOGY TEACHER, ETELVINA L 465 .9 UPPER RESPIRATORY INFECTION 11/01/2012 SALGUERO DO, LADONNA K 465.9 UPPER RESPIRATORY INFECTION 11/01/2012 ETELVINA LEONARD APRN 465 .9 UPPER RESPIRATORY INFECTION 11/13/2012 Ot 250.00 MICHELE B MELVA WO COMPL, TYPE II OR UNSPEC TY 11/13/2012 Ot 272.4 HYPE RLIPIDEMIA NEC/NOS 11/13/2012 Ot 278.00 OBE SITY, NOS 11/13/2012 Ot 300.00 ANX IETY STATE NOS 11/13/2012 Ot 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 11/13/2012 Ot 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 11/13/2012 Ot 401.9 HYPE RTENSION NOS 11/13/2012 Ot 414.01 COR ONARY ATHEROSCLEROSIS OF [place] CORON 11/13/2012 Ot 458.9 HYPO TENSION NOS 11/13/2012 Ot 491.21 OBS TR CHRONIC BRONCHITIS, W (ACUTE) EXAC 11/13/2012 Ot 530.81 ESO PHAGEAL REFLUX 11/13/2012 Ot 584.9 ACUT E RENAL FAILURE, UNSPECIFIED 11/13/2012 Ot 599.0 URIN TRACT INFECTION NOS 11/13/2012 Ot 724.5 BACK ACHE NOS 11/13/2012 Ot 780.2 SYNC OPE AND COLLAPSE 11/13/[address] PAIN NEC 11/13/2012 Ot 959.6 HIP THIGH INJURY NOS 11/13/2012 Ot E888.9 FAL L NOS 11/13/2012 Ot V45.82 PER CUTANEOUS TRANSLUM CORON ANGIOPLASTY 11/13/2012 Ot V85.41 BOD Y MASS INDEX 40.0-44.9, ADULT 12/02/2012 LAURIE MORA APRN 244.9 HYPOTHYROIDISM 12/02/2012 ROMELIA FISCHER MD 244. 9 HYPOTHYROIDISM 12/02/2012 BYRON BOSS MD 244.9 HYPOTHYROIDISM 12/02/2012 244.9 HYPO THYROIDISM 12/02/2012 244.9 HYPO THYROIDISM 12/02/2012 244.9 HYPO THYROIDISM 12/02/2012 244.9 HYPO THYROIDISM 12/02/2012 BYRON BOSS MD 244.9 HYPOTHYROIDISM 12/02/2012 BYRON BOSS MD 244.9 HYPOTHYROIDISM 12/02/2012 LADONNA SALGUERO DO 244.9 HYPOTHYROIDISM 12/02/2012 BYRON BOSS MD 244.9 HYPOTHYROIDISM 12/02/2012 SALGUERO DO, LADONNA K 244.9 HYPOTHYROIDISM 12/02/2012 KARYN OLVERA, BYRON Bruner 244.9 HYPOTHYROIDISM 12/02/2012 KARYN OLVERA, BYRON Bruner 244.9 HYPOTHYROIDISM 12/02/2012 SALGUERO DO, LADONNA K 244.9 HYPOTHYROIDISM 12/02/2012 SALGUERO DO, LADONNA K 244.9 HYPOTHYROIDISM 12/02/2012 SALGUERO DO, LADONNA K 244.9 HYPOTHYROIDISM 12/02/2012 SALGUERO DO, LADONNA K 244.9 HYPOTHYROIDISM 12/02/2012 MADL OTOLARYNGOLOGY TEACHER, ETELVINA L 244 .9 HYPOTHYROIDISM 12/02/2012 MADL OTOLARYNGOLOGY TEACHER, ETELVINA L 244 .9 HYPOTHYROIDISM 12/02/2012 MADL OTOLARYNGOLOGY TEACHER, ETELVINA L 244 .9 HYPOTHYROIDISM 12/02/2012 SALGUERO DO, LADONNA K 244.9 HYPOTHYROIDISM 12/02/2012 SALGUERO DO, LADONNA K 244.9 HYPOTHYROIDISM 12/02/2012 MADL OTOLARYNGOLOGY TEACHER, ETELVINA L 244 .9 HYPOTHYROIDISM 12/02/2012 MADL OTOLARYNGOLOGY TEACHER, ETELVINA L 244 .9 HYPOTHYROIDISM 12/02/2012 MADL OTOLARYNGOLOGY TEACHER, ETELVINA L 244 .9 HYPOTHYROIDISM 12/02/2012 MADL OTOLARYNGOLOGY TEACHER, ETELVINA L 244 .9 HYPOTHYROIDISM 12/02/2012 MADL OTOLARYNGOLOGY TEACHER, ETELVINA L 244 .9 HYPOTHYROIDISM 12/02/2012 MADL OTOLARYNGOLOGY TEACHER, ETELVINA L 244 .9 HYPOTHYROIDISM 12/02/2012 MADL OTOLARYNGOLOGY TEACHER, ETELVINA L 244 .9 HYPOTHYROIDISM 12/02/2012 SALGUERO DO, LADONNA K 244.9 HYPOTHYROIDISM 12/02/2012 SALGUERO DO, LADONNA K 244.9 HYPOTHYROIDISM 12/02/2012 MADL OTOLARYNGOLOGY TEACHER, ETELVINA L 244 .9 HYPOTHYROIDISM 12/02/2012 SALGUERO DO, LADONNA K 244.9 HYPOTHYROIDISM 12/02/2012 MADL OTOLARYNGOLOGY TEACHER, ETELVINA L 244 .9 HYPOTHYROIDISM 12/26/2012 Ot 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 12/26/2012 Ot 338.29 OTH ER CHRONIC PAIN 12/26/2012 Ot 466.0 ACUT E BRONCHITIS 12/26/2012 Ot 786.2 COUGH 01/01/2013 Ot 845.00 SPR AIN OF ANKLE NOS 01/01/2013 Ot 924.20 CON TUSION OF FOOT 01/01/2013 Ot 959.7 LOWE R LEG INJURY NOS 01/01/2013 Ot E000.8 OTH ER EXTERNAL CAUSE STATUS 01/01/2013 Ot E849.0 ACC IDENT IN HOME 01/01/2013 Ot E888.9 FAL L NOS 01/19/2013 Ot 110.4 DERM ATOPHYTOSIS OF FOOT 01/19/2013 Ot 729.5 PAIN IN LIMB 02/08/2013 BYRON BOSS MD 780.52 insomnia 02/08/2013 780.52 ins omnia 02/08/2013 780.52 ins omnia 02/08/2013 780.52 ins omnia 02/08/2013 780.52 ins omnia 02/08/2013 BYRON BOSS MD 780.52 insomnia 02/08/2013 [...] DO, LADONNA K 780.52 insomnia 02/08/2013 MADL OTOLARYNGOLOGY TEACHER, ETELVINA L 780 .52 insomnia 02/08/2013 MADL OTOLARYNGOLOGY TEACHER, ETELVINA L 780 .52 insomnia 02/08/2013 MADL OTOLARYNGOLOGY TEACHER, ETELVINA L 780 .52 insomnia 02/08/2013 SALGUERO DO, LADONNA K 780.52 insomnia 02/08/2013 SALGUERO DO, LADONNA K 780.52 insomnia 02/08/2013 MADL OTOLARYNGOLOGY TEACHER, ETELVINA L 780 .52 insomnia 02/08/2013 MADL OTOLARYNGOLOGY TEACHER, ETELVINA L 780 .52 insomnia 02/08/2013 MADL OTOLARYNGOLOGY TEACHER, ETELVINA L 780 .52 insomnia 02/08/2013 MADL OTOLARYNGOLOGY TEACHER, ETELVINA L 780 .52 insomnia 02/08/2013 MADL OTOLARYNGOLOGY TEACHER, ETELVINA L 780 .52 insomnia 02/08/2013 MADL OTOLARYNGOLOGY TEACHER, ETELVINA L 780 .52 insomnia 02/08/2013 MADL OTOLARYNGOLOGY TEACHER, ETELVINA L 780 .52 insomnia 02/08/2013 SALGUERO DO, LADONNA K 780.52 insomnia 02/08/2013 SALGUERO DO, LADONNA K 780.52 insomnia 02/08/2013 MADL OTOLARYNGOLOGY TEACHER, ETELVINA L 780 .52 insomnia 02/08/2013 SALGUERO DO, LADONNA K 780.52 insomnia 02/08/2013 MADL OTOLARYNGOLOGY TEACHER, ETELVINA L 780 .52 insomnia 04/17/2013 REHAN OLVERA, MARCO A Garcia Ot 305. 1 TOBACCO USE DISORDER 04/17/2013 REHAN OLVERA, MARCO A Garcia Ot 490 BRONCHITIS NOS 04/17/2013 REHAN OLVERA, MARCO A Garcia Ot 786. 2 COUGH 04/18/2013 FELICIA ENCINAS DO Ot 782.1 NONSPECIF SKIN ERUPT NEC 04/18/2013 FELICIA ENCINAS DO Ot 995.27 OTHER DRUG ALLERGY 04/18/2013 FELICIA ENCINAS DO Ot E930.3 ADV EFF ERYTHROMYCIN 06/03/2013 110.1 ONYC HOMYCOSIS 06/03/2013 719.07 MEEK MA FOOT 06/03/2013 110.1 ONYC HOMYCOSIS 06/03/2013 719.07 MEEK MA FOOT 06/03/2013 110.1 ONYC HOMYCOSIS 06/03/2013 719.07 MEEK MA FOOT 06/03/2013 BYRON BOSS MD 110.1 ONYCHOMYCOSIS 06/03/2013 BYRON BOSS MD 719.07 EDEMA FOOT 06/03/2013 BYRON BOSS MD 110.1 ONYCHOMYCOSIS 06/03/2013 BYRON BOSS MD 719.07 EDEMA FOOT 06/03/2013 LADONNA SALGUERO DO K 110.1 ONYCHOMYCOSIS 06/03/2013 LADONNA SALGUERO DO 719.07 EDEMA FOOT 06/03/2013 BYRON BOSS MD 110.1 ONYCHOMYCOSIS 06/03/2013 BYRON BOSS MD 719.07 EDEMA FOOT 06/03/2013 LADONNA SALGUERO DO K 110.1 ONYCHOMYCOSIS 06/03/2013 TERE SALGUERO DOA K 719.07 EDEMA FOOT 06/03/2013 BYRON BOSS MD 110.1 ONYCHOMYCOSIS 06/03/2013 KARYN OLVERA, BYRON Bruner 719.07 EDEMA FOOT 06/03/2013 BYRON BOSS MD 110.1 ONYCHOMYCOSIS 06/03/2013 KARYN OLVERA, BYRON Bruner 719.07 EDEMA FOOT 06/03/2013 SALGUERO DO, LADONNA [...] LADONNA K 719.07 EDEMA FOOT 06/03/2013 MADL OTOLARYNGOLOGY TEACHER, ETELVINA L 110 .1 ONYCHOMYCOSIS 06/03/2013 MADL OTOLARYNGOLOGY TEACHER, ETELVINA L 719 .07 EDEMA FOOT 06/03/2013 MADL OTOLARYNGOLOGY TEACHER, ETELVINA L 110 .1 ONYCHOMYCOSIS 06/03/2013 MADL OTOLARYNGOLOGY TEACHER, ETELVINA L 719 .07 EDEMA FOOT 06/03/2013 MADL OTOLARYNGOLOGY TEACHER, ETELVINA L 110 .1 ONYCHOMYCOSIS 06/03/2013 MADL OTOLARYNGOLOGY TEACHER, ETELVINA L 719 .07 EDEMA FOOT 06/03/2013 SALGUERO DO, LADONNA K 110.1 ONYCHOMYCOSIS 06/03/2013 SALGUERO DO, LADONNA K 719.07 EDEMA FOOT 06/03/2013 SALGUERO DO, LADONNA K 110.1 ONYCHOMYCOSIS 06/03/2013 SALGUERO DO, LADONNA K 719.07 EDEMA FOOT 06/03/2013 MADL OTOLARYNGOLOGY TEACHER, ETELVINA L 110 .1 ONYCHOMYCOSIS 06/03/2013 MADL OTOLARYNGOLOGY TEACHER, ETELVINA L 719 .07 EDEMA FOOT 06/03/2013 MADL OTOLARYNGOLOGY TEACHER, ETELVINA L 110 .1 ONYCHOMYCOSIS 06/03/2013 MADL OTOLARYNGOLOGY TEACHER, ETELVINA L 719 .07 EDEMA FOOT 06/03/2013 MADL OTOLARYNGOLOGY TEACHER, ETELVINA L 110 .1 ONYCHOMYCOSIS 06/03/2013 MADL OTOLARYNGOLOGY TEACHER, ETELVINA L 719 .07 EDEMA FOOT 06/03/2013 MADL OTOLARYNGOLOGY TEACHER, ETELVINA L 110 .1 ONYCHOMYCOSIS 06/03/2013 MADL OTOLARYNGOLOGY TEACHER, ETELVINA L 719 .07 EDEMA FOOT 06/03/2013 MADL OTOLARYNGOLOGY TEACHER, ETELVINA L 110 .1 ONYCHOMYCOSIS 06/03/2013 MADL OTOLARYNGOLOGY TEACHER, ETELVINA L 719 .07 EDEMA FOOT 06/03/2013 MADL OTOLARYNGOLOGY TEACHER, ETELVINA L 110 .1 ONYCHOMYCOSIS 06/03/2013 MADL OTOLARYNGOLOGY TEACHER, ETELVINA L 719 .07 EDEMA FOOT 06/03/2013 MADL OTOLARYNGOLOGY TEACHER, ETELVINA L 110 .1 ONYCHOMYCOSIS 06/03/2013 MADL OTOLARYNGOLOGY TEACHER, ETELVINA L 719 .07 EDEMA FOOT 06/03/2013 SALGUERO DO, LADONNA K 110.1 ONYCHOMYCOSIS 06/03/2013 SALGUERO DO, LADONNA K 719.07 EDEMA FOOT 06/03/2013 SALGUERO DO, LADONNA K 110.1 ONYCHOMYCOSIS 06/03/2013 SALGUERO DO, LADONNA K 719.07 EDEMA FOOT 06/03/2013 MADL OTOLARYNGOLOGY TEACHER, ETELVINA L 110 .1 ONYCHOMYCOSIS 06/03/2013 MADL OTOLARYNGOLOGY TEACHER, ETELVINA L 719 .07 EDEMA FOOT 06/03/2013 SALGUERO DO, LADONNA K 110.1 ONYCHOMYCOSIS 06/03/2013 SALGUERO DO, LADONNA K 719.07 EDEMA FOOT 06/03/2013 MADL OTOLARYNGOLOGY TEACHER, ETELVINA L 110 .1 ONYCHOMYCOSIS 06/03/2013 MADL OTOLARYNGOLOGY TEACHER, ETELVINA L 719 .07 EDEMA FOOT 08/03/2013 EDUARDO VILLEGAS MD Ot 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 08/03/2013 EDUARDO VILLEGAS MD Ot 788.3 0 UNSPECIFIED URINARY INCONTINENCE 08/25/2013 BYRON BOSS MD 311 DEPRESSIVE DISORDER NOT ELSEWHERE CLASSIFIED 08/25/2013 BYRON BOSS MD 595.0 ACUTE CYSTITIS 08/25/2013 LADONNA SALGUERO DO 311 DEPRESSIVE DISORDER NOT ELSEWHERE CLASSIFIED 08/25/2013 [...] LADONNA K 595.0 ACUTE CYSTITIS 08/25/2013 MADL OTOLARYNGOLOGY TEACHER, ETELVINA L 311 depression 08/25/2013 MADL OTOLARYNGOLOGY TEACHER, ETELVINA L 595 .0 ACUTE CYSTITIS 08/25/2013 MADL OTOLARYNGOLOGY TEACHER, ETELVINA L 311 depression 08/25/2013 MADL OTOLARYNGOLOGY TEACHER, ETELVINA L 595 .0 ACUTE CYSTITIS 08/25/2013 MADL OTOLARYNGOLOGY TEACHER, ETELVINA L 311 depression 08/25/2013 MADL OTOLARYNGOLOGY TEACHER, ETELVINA L 595 .0 ACUTE CYSTITIS 08/25/2013 SALGUERO DO, LADONNA K 311 depression 08/25/2013 SALGUERO DO, LADONNA K 595.0 ACUTE CYSTITIS 08/25/2013 SALGUERO DO, LADONNA K 311 depression 08/25/2013 SALGUERO DO, LADONNA K 595.0 ACUTE CYSTITIS 08/25/2013 MADL OTOLARYNGOLOGY TEACHER, ETELVINA L 311 depression 08/25/2013 MADL OTOLARYNGOLOGY TEACHER, ETELVINA L 595 .0 ACUTE CYSTITIS 08/25/2013 MADL OTOLARYNGOLOGY TEACHER, ETELVINA L 311 depression 08/25/2013 MADL OTOLARYNGOLOGY TEACHER, ETELVINA L 595 .0 ACUTE CYSTITIS 08/25/2013 MADL OTOLARYNGOLOGY TEACHER, ETELVINA L 311 depression 08/25/2013 MADL OTOLARYNGOLOGY TEACHER, ETELVINA L 595 .0 ACUTE CYSTITIS 08/25/2013 MADL OTOLARYNGOLOGY TEACHER, ETELVINA L 311 depression 08/25/2013 MADL OTOLARYNGOLOGY TEACHER, ETELVINA L 595 .0 ACUTE CYSTITIS 08/25/2013 MADL OTOLARYNGOLOGY TEACHER, ETELVINA L 311 depression 08/25/2013 MADL OTOLARYNGOLOGY TEACHER, ETELVINA L 595 .0 ACUTE CYSTITIS 08/25/2013 MADL OTOLARYNGOLOGY TEACHER, ETELVINA L 311 depression 08/25/2013 MADL OTOLARYNGOLOGY TEACHER, ETELVINA L 595 .0 ACUTE CYSTITIS 08/25/2013 MADL OTOLARYNGOLOGY TEACHER, ETELVINA L 311 depression 08/25/2013 MADL OTOLARYNGOLOGY TEACHER, ETELVINA L 595 .0 ACUTE CYSTITIS 08/25/2013 SALGUERO DO, LADONNA K 311 depression 08/25/2013 SALGUERO DO, LADONNA K 595.0 ACUTE CYSTITIS 08/25/2013 SALGUERO DO, LADONNA K 311 depression 08/25/2013 SALGUERO DO, LADONNA K 595.0 ACUTE CYSTITIS 08/25/2013 MADL OTOLARYNGOLOGY TEACHER, ETELVINA L 311 depression 08/25/2013 MADL OTOLARYNGOLOGY TEACHER, ETELVINA L 595 .0 ACUTE CYSTITIS 08/25/2013 SALGUERO DO, LADONNA K 311 depression 08/25/2013 SALGUERO DO, LADONNA K 595.0 ACUTE CYSTITIS 08/25/2013 MADL OTOLARYNGOLOGY TEACHER, ETELVINA L 311 depression 08/25/2013 MADL OTOLARYNGOLOGY TEACHER, ETELVINA L 595 .0 ACUTE CYSTITIS 09/02/2013 SALGUERO DO, LADONNA K 709.8 FISSURES SKIN 09/02/2013 BYRON BOSS MD 709.8 FISSURES SKIN 09/02/2013 SALGUERO DO, LADONNA K 709.8 FISSURES SKIN 09/02/2013 BYRON BOSS MD 709.8 FISSURES SKIN 09/02/2013 BYRON BOSS MD 709.8 FISSURES SKIN 09/02/2013 SALGUERO DO, LADONNA K 709.8 FISSURES SKIN 09/02/2013 SALGUERO DO, LADONNA K 709.8 FISSURES SKIN 09/02/2013 SALGUERO DO, LADONNA K 709.8 FISSURES SKIN 09/02/2013 SALGUERO DO, LADONNA K 709.8 FISSURES SKIN 09/02/2013 MADL OTOLARYNGOLOGY TEACHER, ETELVINA L 709 .8 FISSURES SKIN 09/02/2013 MADL OTOLARYNGOLOGY TEACHER, ETELVINA L 709 .8 FISSURES SKIN 09/02/2013 MADL OTOLARYNGOLOGY TEACHER, ETELVINA L 709 .8 FISSURES SKIN 09/02/2013 SALGUERO DO, LADONNA K 709.8 FISSURES SKIN 09/02/2013 SALGUERO DO, LADONNA K 709.8 FISSURES SKIN 09/02/2013 MADL OTOLARYNGOLOGY TEACHER, ETELVINA L 709 .8 FISSURES SKIN 09/02/2013 MADL OTOLARYNGOLOGY TEACHER, ETELVINA L 709 .8 FISSURES SKIN 09/02/2013 MADL OTOLARYNGOLOGY TEACHER, ETELVINA L 709 .8 FISSURES SKIN 09/02/2013 MADL OTOLARYNGOLOGY TEACHER, ETELVINA L 709 .8 FISSURES SKIN 09/02/2013 MADL OTOLARYNGOLOGY TEACHER, ETELVINA L 709 .8 FISSURES SKIN 09/02/2013 MADL OTOLARYNGOLOGY TEACHER, ETELVINA L 709 .8 FISSURES SKIN 09/02/2013 MADL OTOLARYNGOLOGY TEACHER, ETELVINA L 709 .8 FISSURES SKIN 09/02/2013 SALGUERO DO, LADONNA K 709.8 FISSURES SKIN 09/02/2013 SALGUERO DO, LADONNA K 709.8 FISSURES SKIN 09/02/2013 MADL OTOLARYNGOLOGY TEACHER, ETELVINA L 709 .8 FISSURES SKIN 09/02/2013 SALGUERO DO, LADONNA K 709.8 FISSURES SKIN 09/02/2013 MADL OTOLARYNGOLOGY TEACHER, ETELVINA L 709 .8 FISSURES SKIN 09/22/2013 BYRON BOSS MD 788.1 pain during urination (dysuria) 09/22/2013 LADONNA SALGUERO DO 788.1 pain during urination (dysuria) 09/22/2013 BYRON BOSS MD 788.1 pain during urination (dysuria) 09/22/2013 KARYN OLVERA, BYRON Bruner 788.1 pain during urination (dysuria) 09/22/2013 SALGUERO DO, LADONNA K 788.1 pain during urination (dysuria) 09/22/2013 SALGUERO DO, LADONNA K 788.1 pain during urination (dysuria) 09/22/2013 SALGUERO DO, LADONNA K 788.1 pain during urination (dysuria) 09/22/2013 SALGUERO DO, LADONNA K 788.1 pain during urination (dysuria) 09/22/2013 MADL OTOLARYNGOLOGY TEACHER, ETELVINA L 788 .1 pain during urination (dysuria) 09/22/2013 MADL OTOLARYNGOLOGY TEACHER, ETELVINA L 788 .1 pain during urination (dysuria) 09/22/2013 MADL OTOLARYNGOLOGY TEACHER, ETELVINA L 788 .1 pain during urination (dysuria) 09/22/2013 SALGUERO DO, LADONNA K 788.1 PAIN DURING URINATION (DYSURIA) 09/22/2013 SALGUERO DO, LADONNA K 788.1 PAIN DURING URINATION (DYSURIA) 09/22/2013 MADL OTOLARYNGOLOGY TEACHER, ETELVINA L 788 .1 PAIN DURING URINATION (DYSURIA) 09/22/2013 MADL OTOLARYNGOLOGY TEACHER, ETELVINA L 788 .1 PAIN DURING URINATION (DYSURIA) 09/22/2013 MADL OTOLARYNGOLOGY TEACHER, ETELVINA L 788 .1 PAIN DURING URINATION (DYSURIA) 09/22/2013 MADL OTOLARYNGOLOGY TEACHER, ETELVINA L 788 .1 PAIN DURING URINATION (DYSURIA) 09/22/2013 MADL OTOLARYNGOLOGY TEACHER, ETELVINA L 788 .1 PAIN DURING URINATION (DYSURIA) 09/22/2013 MADL OTOLARYNGOLOGY TEACHER, ETELVINA L 788 .1 PAIN DURING URINATION (DYSURIA) 09/22/2013 MADL OTOLARYNGOLOGY TEACHER, ETELVINA L 788 .1 PAIN DURING URINATION (DYSURIA) 09/22/2013 SALGUERO DO, LADONNA K 788.1 PAIN DURING URINATION (DYSURIA) 09/22/2013 SALGUERO DO, LADONNA K 788.1 PAIN DURING URINATION (DYSURIA) 09/22/2013 MADL OTOLARYNGOLOGY TEACHER, ETELVINA L 788 .1 PAIN DURING URINATION (DYSURIA) 09/22/2013 LADONNA SALGUERO DO 788.1 PAIN DURING URINATION (DYSURIA) 09/22/2013 ETELVINA LEONARD APRN 788 .1 PAIN DURING URINATION (DYSURIA) 10/22/2013 EDUARDO VILLEGAS MD Ot 596.5 1 HYPERTONICITY OF BLADDER 10/22/2013 EDUARDO VILLEGAS MD Ot 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 10/22/2013 EDUARDO VILLEGAS MD Ot 788.3 0 UNSPECIFIED URINARY INCONTINENCE 10/22/2013 EDUARDO VILLEGAS MD Ot V58.6 9 OTH MED,LT,CURRENT USE 10/25/2013 HARDEEP DORANTES Ot 892.0 OPEN WOUND OF FOOT 10/25/2013 HARDEEP DORANTES Ot 959.7 LOWER LEG INJURY NOS 10/25/2013 HARDEEP DORANTES Ot E000.8 OTHER EXTERNAL CAUSE STATUS 10/25/2013 HARDEEP DORANTES Ot E849.0 ACCIDENT IN HOME 10/25/2013 HARDEEP DORANTES Ot E916 STRUCK BY FALLING OBJECT 10/25/2013 HARDEEP DORANTES Ot V06.1 [id number], COMBINED [ 11/04/2013 KARLOS OLVERA, MARLA Ackerman Ot V58.2 BLOOD TRANSFUSION, NO DX 11/04/2013 KARLOS OLVERA, MARLA Ackerman Ot V58.32 ENCOUNTER FOR REMOVAL OF SUTURES 12/12/2013 PATRICIA MCDONALD MD Ot 996. 78 OTH COMP DUE TO OTH INTRNL ORTHPEDIC DEV 02/11/2014 LADONNA SALGUERO DO Ot 244.9 HYPOTHYROIDISM NOS 02/11/2014 LADONNA SALGUERO DO K Ot 250.00 DIAB MELVA WO COMPL, TYPE II OR UNSPEC TY 02/11/2014 TERE SALGUERO DOA K Ot 272.4 HYPERLIPIDEMIA NEC/NOS 02/11/2014 TERE SALGUERO DOA K Ot 275.2 DIS MAGNESIUM METABOLISM 02/11/2014 TERE SALGUERO DOA K Ot 278.00 OBESITY, NOS 02/11/2014 TERE SALGUERO DOA K Ot 300.00 ANXIETY STATE NOS 02/11/2014 TERE SALGUERO DOA K Ot 305.1 TOBACCO USE DISORDER 02/11/2014 TERE SALGUERO DOA K Ot 311 DEPRESSIVE DISORDER NEC 02/11/2014 TERE SALGUERO DOA K Ot 338.29 OTHER CHRONIC PAIN 02/11/2014 NOEMY PRAKASH LADONNA K Ot 401.9 HYPERTENSION NOS 02/11/2014 NOEMY PRAKASH LADONNA K Ot 414.01 CORONARY ATHEROSCLEROSIS OF [place] CORON 02/11/2014 NOEMY PRAKASH LADONNA K Ot [...] MASS INDEX 39.0-39.9, ADULT 02/13/2014 THOMPSON QURESHI OTOLARYNGOLOGY TEACHER Ot 724 .5 BACKACHE NOS 02/27/2014 NOEMY PRAKASH LADONNA K 381.01 ACUTE SEROUS OTITIS MEDIA 02/27/2014 SALGUERO DO LADONNA K 381.01 ACUTE SEROUS OTITIS MEDIA 02/27/2014 NOEYM PRAKASH LADONNA K 381.01 ACUTE SEROUS OTITIS MEDIA 02/27/2014 NOEMY PRAKASH LADONNA K 381.01 ACUTE SEROUS OTITIS MEDIA 02/27/2014 MADL OTOLARYNGOLOGY TEACHER, ETELVINA L 381 .01 ACUTE SEROUS OTITIS MEDIA 02/27/2014 MADL OTOLARYNGOLOGY TEACHER, ETELVINA L 381 .01 ACUTE SEROUS OTITIS MEDIA 02/27/2014 MADL OTOLARYNGOLOGY TEACHER, ETELVINA L 381 .01 ACUTE SEROUS OTITIS MEDIA 02/27/2014 SALGUERO DO LADONNA K 381.01 ACUTE SEROUS OTITIS MEDIA 02/27/2014 SALGUERO DO LADONNA K 381.01 ACUTE SEROUS OTITIS MEDIA 02/27/2014 MADL OTOLARYNGOLOGY TEACHER, ETELVINA L 381 .01 ACUTE SEROUS OTITIS MEDIA 02/27/2014 MADL OTOLARYNGOLOGY TEACHER, ETELVINA L 381 .01 ACUTE SEROUS OTITIS MEDIA 02/27/2014 MADL OTOLARYNGOLOGY TEACHER, ETELVINA L 381 .01 ACUTE SEROUS OTITIS MEDIA 02/27/2014 MADL OTOLARYNGOLOGY TEACHER, ETELVINA L 381 .01 ACUTE SEROUS OTITIS MEDIA 02/27/2014 MADL OTOLARYNGOLOGY TEACHER, ETELVINA L 381 .01 ACUTE SEROUS OTITIS MEDIA 02/27/2014 MADL OTOLARYNGOLOGY TEACHER, ETELVINA L 381 .01 ACUTE SEROUS OTITIS MEDIA 02/27/2014 MADL OTOLARYNGOLOGY TEACHER, ETELVINA L 381 .01 ACUTE SEROUS OTITIS MEDIA 02/27/2014 SALGUERO DO, LADONNA K 381.01 ACUTE SEROUS OTITIS MEDIA 02/27/2014 SALGUERO DO, LADONNA K 381.01 ACUTE SEROUS OTITIS MEDIA 02/27/2014 MADL OTOLARYNGOLOGY TEACHER, ETELVINA L 381 .01 ACUTE SEROUS OTITIS MEDIA 02/27/2014 SALGUERO DO, LADONNA K 381.01 ACUTE SEROUS OTITIS MEDIA 02/27/2014 MADL OTOLARYNGOLOGY TEACHER, ETELVINA L 381 .01 ACUTE SEROUS OTITIS MEDIA 05/22/2014 MADL OTOLARYNGOLOGY TEACHER, ETELVINA L V16 .0 FAMILY HISTORY OF MALIGNANT NEOPLASM OF GASTROINTESTINAL TRACT 05/22/2014 MADL OTOLARYNGOLOGY TEACHER, ETELVINA L V16 .0 FAMILY HISTORY OF MALIGNANT NEOPLASM OF GASTROINTESTINAL TRACT 05/22/2014 SALGUERO DO, LADONNA K V16.0 FAMILY HISTORY OF MALIGNANT NEOPLASM OF GASTROINTESTINAL TRACT 05/22/2014 SALGUREO DO, LADONNA K V16.0 FAMILY HISTORY OF MALIGNANT NEOPLASM OF GASTROINTESTINAL TRACT 05/22/2014 MADL OTOLARYNGOLOGY TEACHER, ETELVINA L V16 .0 FAMILY HISTORY OF MALIGNANT NEOPLASM OF GASTROINTESTINAL TRACT 05/22/2014 MADL OTOLARYNGOLOGY TEACHER, ETELVINA L V16 .0 FAMILY HISTORY OF MALIGNANT NEOPLASM OF GASTROINTESTINAL TRACT 05/22/2014 MADL OTOLARYNGOLOGY TEACHER, ETELVINA L V16 .0 FAMILY HISTORY OF MALIGNANT NEOPLASM OF GASTROINTESTINAL TRACT 05/22/2014 MADL OTOLARYNGOLOGY TEACHER, ETELVINA L V16 .0 FAMILY HISTORY OF MALIGNANT NEOPLASM OF GASTROINTESTINAL TRACT 05/22/2014 MADL OTOLARYNGOLOGY TEACHER, ETELVINA L V16 .0 FAMILY HISTORY OF MALIGNANT NEOPLASM OF GASTROINTESTINAL TRACT 05/22/2014 MADL OTOLARYNGOLOGY TEACHER, ETELVINA L V16 .0 FAMILY HISTORY OF MALIGNANT NEOPLASM OF GASTROINTESTINAL TRACT 05/22/2014 MADL OTOLARYNGOLOGY TEACHER, ETELVINA L V16 .0 FAMILY HISTORY OF MALIGNANT NEOPLASM OF GASTROINTESTINAL TRACT 05/22/2014 SALGUERO DO, LADONNA K V16.0 FAMILY HISTORY OF MALIGNANT NEOPLASM OF GASTROINTESTINAL TRACT 05/22/2014 SALGUERO DO, LADONNA K V16.0 FAMILY HISTORY OF MALIGNANT NEOPLASM OF GASTROINTESTINAL TRACT 05/22/2014 ETELVINA LEONARD APRN V16 .0 FAMILY HISTORY OF MALIGNANT NEOPLASM OF GASTROINTESTINAL TRACT 05/22/2014 LADONNA SALGUERO DO V16.0 FAMILY HISTORY OF MALIGNANT NEOPLASM OF GASTROINTESTINAL TRACT 05/22/2014 ETELVINA LEONARD APRN V16 .0 FAMILY HISTORY OF MALIGNANT NEOPLASM OF GASTROINTESTINAL TRACT 05/23/2014 KOFI OLVERA FACC, ALI FACP CCDS Ot 250.00 DIAB MELVA WO COMPL, TYPE II OR UNSPEC TY 05/23/2014 KOFI OLVERA FACC, ALI FACP CCDS Ot 278.00 OBESITY, NOS 05/23/2014 KOFI OLVERA FACC, ALI FACP CCDS Ot 300.4 DYSTHYMIC DISORDER 05/23/2014 KOFI OLVERA FACC, ALI FACP CCDS Ot 305.1 TOBACCO USE DISORDER 05/23/2014 KOFI OLVERA FACC, ALI FACP CCDS Ot 414.01 CORONARY ATHEROSCLEROSIS OF [place] CORON 05/23/2014 KOFI OLVERA FACC, BRADLY FACP CCDS Ot 496 CHR AIRWAY OBSTRUCT NEC 05/23/2014 KOFI OLVERA FACC, ALI FACP CCDS Ot 786.50 CHEST PAIN NOS 05/23/2014 KOFI OLVERA FACC, ALI FACP CCDS Ot V45.82 PERCUTANEOUS TRANSLUM CORON ANGIOPLASTY 05/23/2014 KOFI OLVERA FACC, ALI FACP CCDS Ot V58.67 LONG-TERM (CURRENT) USE OF INSULIN 05/23/2014 KOFI OLVERA FACC, ALI FACP CCDS Ot V58.69 OTH MED,LT,CURRENT USE 05/23/2014 KOFI OLVERA FACC, ALI FACP CCDS Ot V85.41 BODY MASS INDEX 40.0-44.9, ADULT 06/05/2014 ALVIN SALDANA MD Ot 244.9 HYPOTHYROIDISM NOS 06/05/2014 ALVIN SALDANA MD Ot 250.00 DIAB MELVA WO COMPL, TYPE II OR UNSPEC TY 06/05/2014 ALVIN SALDANA MD Ot 272.4 HYPERLIPIDEMIA NEC/NOS 06/05/2014 ALVIN SALDANA MD Ot 401.9 HYPERTENSION NOS 06/05/2014 ALVIN SALDANA MD Ot 414.01 CORONARY ATHEROSCLEROSIS OF [place] CORON 06/05/2014 ALVIN SALDANA MD Ot 49 6 CHR AIRWAY OBSTRUCT NEC 06/05/2014 SHANA OLVERA ALVIN Bruner Ot 562.10 DIVERTICULOSIS COLON (W/O MENT OF HEMORR 06/05/2014 SHANA OLVERA, ALVIN Bruner Ot V16.0 FAMILY HX-GI MALIGNANCY 06/05/2014 SHANA OLVERA, ALVIN Bruner Ot V76.51 SCREEN MAL NEOP-COLON 07/10/2014 SHANA OLVERA, ALVIN Bruner Ot 530.3 ESOPHAGEAL STRICTURE 07/10/2014 SHANA OLVERA, ALVIN Bruner Ot 535.50 UNSP GASTRITIS GASTRODUODENITIS W/O ME 07/10/2014 SHANA OLVERA, ALVIN Bruner Ot 553.3 DIAPHRAGMATIC HERNIA 08/28/2014 MADL OTOLARYNGOLOGY TEACHER, ETELVINA L 381 .01 ACUTE SEROUS OTITIS MEDIA 08/28/2014 MADL OTOLARYNGOLOGY TEACHER, ETELVINA L 799 .02 HYPOXIA 08/28/2014 MADL OTOLARYNGOLOGY TEACHER, ETELVINA L V04 .81 FLU SHOT 08/28/2014 MADL OTOLARYNGOLOGY TEACHER, ETELVINA L 381 .01 ACUTE SEROUS OTITIS MEDIA 08/28/2014 MADL OTOLARYNGOLOGY TEACHER, ETELVINA L 799 .02 HYPOXIA 08/28/2014 MADL OTOLARYNGOLOGY TEACHER, ETELVINA L V04 .81 FLU SHOT 08/28/2014 MADL OTOLARYNGOLOGY TEACHER, ETELVINA L 381 .01 ACUTE SEROUS OTITIS MEDIA 08/28/2014 MADL OTOLARYNGOLOGY TEACHER, ETELVINA L 799 .02 HYPOXIA 08/28/2014 MADL OTOLARYNGOLOGY TEACHER, ETELVINA L V04 .81 FLU SHOT 08/28/2014 MADL OTOLARYNGOLOGY TEACHER, ETELVINA L 381 .01 ACUTE SEROUS OTITIS MEDIA 08/28/2014 MADL OTOLARYNGOLOGY TEACHER, ETELVINA L 799 .02 HYPOXIA 08/28/2014 MADL OTOLARYNGOLOGY TEACHER, ETELVINA L V04 .81 FLU SHOT 08/28/2014 MADL OTOLARYNGOLOGY TEACHER, ETELVINA L 381 .01 ACUTE SEROUS OTITIS MEDIA 08/28/2014 MADL OTOLARYNGOLOGY TEACHER, ETELVINA L 799 .02 HYPOXIA 08/28/2014 MADL OTOLARYNGOLOGY TEACHER, ETELVINA L V04 .81 FLU SHOT 08/28/2014 MADL OTOLARYNGOLOGY TEACHER, ETELVINA L 381 .01 ACUTE SEROUS OTITIS MEDIA 08/28/2014 MADL OTOLARYNGOLOGY TEACHER, ETELVINA L 799 .02 HYPOXIA 08/28/2014 MADL OTOLARYNGOLOGY TEACHER, ETELVINA L V04 .81 FLU SHOT 08/28/2014 HUGOL HAMMAD HARRISA L 381 .01 ACUTE SEROUS OTITIS MEDIA 08/28/2014 MADL ANDREZ HARRISNYA L 799 .02 HYPOXIA 08/28/2014 HUGOL ANDREZ HARRISNYA L V04 .81 FLU SHOT 08/28/2014 SALGUERO DO LADONNA K 381.01 ACUTE SEROUS OTITIS MEDIA 08/28/2014 SALGUERO DO LADONNA K 799.02 HYPOXIA 08/28/2014 SALGUERO DO, LADONNA K V04.81 FLU SHOT 08/28/2014 SALGUERO DO, LADONNA K 381.01 ACUTE SEROUS OTITIS MEDIA 08/28/2014 SALGUERO DO, LADONNA K 799.02 HYPOXIA 08/28/2014 SALGUERO , LADONNA K V04.81 FLU SHOT 08/28/2014 ANDREZ LEONARD APRNNYA L 381 .01 ACUTE SEROUS OTITIS MEDIA 08/28/2014 ANDREZ LEONARD APRNNYA L 799 .02 HYPOXIA 08/28/2014 ANDREZ LEONARD APRNNYA L V04 .81 FLU SHOT 08/28/2014 SALGUERO DO LADONNA K 381.01 ACUTE SEROUS OTITIS MEDIA 08/28/2014 SALGUERO DO, LADONNA K 799.02 HYPOXIA 08/28/2014 SALGUERO DO, LADONNA K V04.81 FLU SHOT 08/28/2014 ANDREZ LEONARD APRNNYA L 381 .01 ACUTE SEROUS OTITIS MEDIA 08/28/2014 ANDREZ LEONARD APRNNYA L 799 .02 HYPOXIA 08/28/2014 HAMMAD LEONARD APRNA L V04 .81 FLU SHOT 08/31/2014 THOMPSON QURESHI APRN Ot 250.00 DIAB MELVA WO COMPL, TYPE II OR UNSPEC TY 08/31/2014 THOMPSON QURESHI APRN Ot 305 .1 TOBACCO USE DISORDER 08/31/2014 THOMPSON QURESHI APRN Ot 382 .9 OTITIS MEDIA NOS 08/31/2014 THOMPSON QURESHI APRN Ot 784 .2 SWELLING IN HEAD NECK 08/31/2014 THOMPSON QURESHI APRN Ot 910 .4 INSECT BITE HEAD 08/31/2014 THOMPSON QURESHI APRN Ot E849.0 ACCIDENT IN HOME 08/31/2014 THOMPSON QURESHI APRN Ot E906.4 NONVENOM ARTHROPOD BITE 08/31/2014 THOMPSON QURESHI OTOLARYNGOLOGY TEACHER Ot V58.67 LONG-TERM (CURRENT) USE OF INSULIN 09/01/2014 THOMPSON QURESHI OTOLARYNGOLOGY TEACHER Ot 373.00 BLEPHARITIS NOS 09/01/2014 THOMPSON QURESHI OTOLARYNGOLOGY TEACHER Ot 379.92 SWELLING OR MASS OF EYE 10/01/2014 HUANG TRENTON PRAKASHA K Ot 272.0 PURE HYPERCHOLESTEROLEM 10/01/2014 HUANG DO FELICIA K Ot 401.9 HYPERTENSION NOS 10/01/2014 HUANG , FELICIA K Ot 455.6 HEMORRHOIDS NOS 10/01/2014 HUANG DO FELICIA K Ot 565.0 ANAL FISSURE 10/01/2014 HUANG , FELICIA K Ot 569.3 RECTAL ANAL HEMORRHAGE 10/23/2014 ANDREZ LEONARD APRNNYA L 112 .3 CANDIDIASIS OF SKIN AND NAILS 10/23/2014 SARA LEONARD APRNWNYA L V03 .82 PPV23 (PNEUMOVAX) DX 10/23/2014 ANDREZ LEONARD APRNNYA L 112 .3 CANDIDIASIS OF SKIN AND NAILS 10/23/2014 HUGO ANDREZ HARRISNYA L V03 .82 PPV23 (PNEUMOVAX) DX 10/23/2014 HUGO ANDREZ HARRISNYA L 112 .3 CANDIDIASIS OF SKIN AND NAILS 10/23/2014 AISHA HARRIS ETELVINA L V03 .82 PPV23 (PNEUMOVAX) DX 10/23/2014 HUGO KIMBERLY ETELVINA L 112 .3 CANDIDIASIS OF SKIN AND NAILS 10/23/2014 ANDREZ LEONARD APRNNYA L V03 .82 PPV23 (PNEUMOVAX) DX 10/23/2014 NOEMY PRAKASH LADONNA K 112.3 CANDIDIASIS OF SKIN AND NAILS 10/23/2014 SALGUERO DO LADONNA K V03.82 PPV23 (PNEUMOVAX) DX 10/23/2014 NOEMY PRAKASH LADONNA K 112.3 CANDIDIASIS OF SKIN AND NAILS 10/23/2014 NOEMY PRAKASH LADONNA K V03.82 PPV23 (PNEUMOVAX) DX 10/23/2014 SARA LEONARD APRNWNYA L 112 .3 CANDIDIASIS OF SKIN AND NAILS 10/23/2014 AISHA HARRIS ETELVINA L V03 .82 PPV23 (PNEUMOVAX) DX 10/23/2014 LADONNA SALGUERO DO K 112.3 CANDIDIASIS OF SKIN AND NAILS 10/23/2014 LADONNA SALGUERO DO K V03.82 PPV23 (PNEUMOVAX) DX 10/23/2014 ETELVINA LEONARD APRN 112 .3 CANDIDIASIS OF SKIN AND NAILS 10/23/2014 ETELVINA LEONARD APRN V03 .82 PPV23 (PNEUMOVAX) DX 10/30/2014 HARDEEP DORANTES Ot 305.1 TOBACCO USE DISORDER 10/30/2014 HARDEEP DORANTES Ot 4 86 PNEUMONIA, ORGANISM NOS 10/30/2014 HARDEEP DORANTES Ot 4 96 CHR AIRWAY OBSTRUCT NEC 10/30/2014 HARDEEP DORANTES Ot 787.02 NAUSEA ALONE 11/03/2014 DANIELITO SORIANO MD Ot 491.22 OBSTRUCTIVE CHRONIC BRONCHITIS WITH ACUT 11/03/2014 DANIELITO SORIANO MD Ot 786 .2 COUGH 12/11/2014 ETELVINA LEONARD APRN 719 .46 PAIN IN JOINT INVOLVING LOWER LEG 12/11/2014 ETELVINA LEONARD APRN 719 .47 PAIN IN JOINT INVOLVING ANKLE AND FOOT 12/11/2014 LADONNA SALGUERO DO K 719.46 PAIN IN JOINT INVOLVING LOWER LEG 12/11/2014 LADONNA SALGUERO DO K 719.47 PAIN IN JOINT INVOLVING ANKLE AND FOOT 12/11/2014 LADONNA SALGUERO DO K 719.46 PAIN IN JOINT INVOLVING LOWER LEG 12/11/2014 LADONNA SALGUERO DO K 719.47 PAIN IN JOINT INVOLVING ANKLE AND FOOT 12/11/2014 HAMMAD LENOARD APRNA L 719 .46 PAIN IN JOINT INVOLVING LOWER LEG 12/11/2014 HAMMAD LEONARD APRNA L 719 .47 PAIN IN JOINT INVOLVING ANKLE AND FOOT 12/11/2014 TERE SALGUERO DOA K 719.46 PAIN IN JOINT INVOLVING LOWER LEG 12/11/2014 TERE SALGUERO DOA K 719.47 PAIN IN JOINT INVOLVING ANKLE AND FOOT 12/11/2014 HAMMAD LEONARD APRNA L 719 .46 PAIN IN JOINT INVOLVING LOWER LEG 12/11/2014 ETELVINA LEONARD APRN L 719 .47 PAIN IN JOINT INVOLVING ANKLE AND FOOT [...] (CURRENT) USE OF INSULIN 12/30/2014 INES REYNOSO MD, Ot V58.69 OTH MED,LT,CURRENT USE 02/09/2015 MADL OTOLARYNGOLOGY TEACHER, ETELVINA L 735 .4 HAMMER TOE (ACQUIRED) 02/09/2015 MADL OTOLARYNGOLOGY TEACHER, ETELVINA L 757 .39 POROKEROTOSIS 02/09/2015 MADL OTOLARYNGOLOGY TEACHER, ETELVINA L 788 .1 DYSURIA 02/09/2015 MADL OTOLARYNGOLOGY TEACHER, ETELVINA L 789 .02 ABDOMINAL PAIN LEFT UPPER QUADRANT 02/09/2015 SALGUERO DO, LADONNA K 735.4 HAMMER TOE (ACQUIRED) 02/09/2015 SALGUERO DO, LADONNA K 757.39 POROKEROTOSIS 02/09/2015 SALGUERO DO, LADONNA K 788.1 DYSURIA 02/09/2015 SALGUERO DO, LADONNA K 789.02 ABDOMINAL PAIN LEFT UPPER QUADRANT 02/09/2015 MADL OTOLARYNGOLOGY TEACHER, ETELVINA L 735 .4 HAMMER TOE (ACQUIRED) 02/09/2015 MADL OTOLARYNGOLOGY TEACHER, ETELVINA L 757 .39 POROKEROTOSIS 02/09/2015 MADL OTOLARYNGOLOGY TEACHER, ETELVINA L 788 .1 DYSURIA 02/09/2015 MADL OTOLARYNGOLOGY TEACHER, ETELVINA L 789 .02 ABDOMINAL PAIN LEFT UPPER QUADRANT 02/19/2015 MADL OTOLARYNGOLOGY TEACHER, ETELVINA L 780 .2 SYNCOPE AND COLLAPSE 02/19/2015 SALGUERO DO, LADONNA K 780.2 SYNCOPE AND COLLAPSE 02/19/2015 MADL OTOLARYNGOLOGY TEACHER, ETELVINA L 780 .2 SYNCOPE AND COLLAPSE 02/20/2015 QUE LEON MD Ot 250.00 DIAB MELVA WO COMPL, TYPE II OR UNSPEC TY 02/20/2015 QUE LEON MD Ot 305 .1 TOBACCO USE DISORDER 02/20/2015 QUE LEON MD Ot 401 .9 HYPERTENSION NOS 02/20/2015 QUE LEON MD Ot 414.01 CORONARY ATHEROSCLEROSIS OF [place] CORON 02/20/2015 QUE LEON MD Ot 458 .0 ORTHOSTATIC HYPOTENSION 02/20/2015 QUE LEON MD Ot 584 .9 ACUTE RENAL FAILURE, UNSPECIFIED 02/20/2015 QUE LEON MD Ot V15.88 HISTORY OF FALL 02/27/2015 MADL OTOLARYNGOLOGY TEACHERETELVINA L 593 .9 UNSPECIFIED DISORDER OF KIDNEY AND URETER 03/01/2015 MADETELVINA Goodman L COMMUNITY DEVELOPMENT MANAGER Ot 414.00 03/01/2015 MADHAMMAD GoodmanA L COMMUNITY DEVELOPMENT MANAGER Ot 780 .2 03/01/2015 MADHAMMAD GoodmanA L COMMUNITY DEVELOPMENT MANAGER Ot V45.82 03/26/2015 Ot 786.09 03/26/2015 Ot [...] 03/26/2015 Ot V76.12 03/26/2015 BAKARI OLVERA, EDUARDO A Ot 599.8 2 03/26/2015 BAKARI OLVERA, EDUARDO A Ot 788.3 0 03/26/2015 BAKARI OLVERA, EDUARDO A Ot V72.6 3 03/26/2015 BAKARI OLVERA, EDUARDO A Ot V74.8 03/26/2015 BAKARI OLVERA, EDUARDO A Ot 599.8 2 03/26/2015 BAKARI OLVERA, EDUARDO A Ot 788.3 0 03/26/2015 BAKARI OLVERA, EDUARDO A Ot V72.6 3 03/26/2015 BAKARI OLVERA, EDUARDO A Ot V74.8 03/26/2015 BAIMA, KYLAH L COMMUNITY DEVELOPMENT MANAGER Ot 396.3 03/26/2015 BAIMA, KYLAH L COMMUNITY DEVELOPMENT MANAGER Ot 397.0 03/26/2015 BAIMA, KYLAH L COMMUNITY DEVELOPMENT MANAGER Ot 401.9 03/26/2015 BAIMA, KYLAH L COMMUNITY DEVELOPMENT MANAGER Ot 414.00 03/26/2015 BAIMA, KYLAH L COMMUNITY DEVELOPMENT MANAGER Ot 250.00 03/26/2015 BAIMA, KYLAH L COMMUNITY DEVELOPMENT MANAGER Ot 272.4 03/26/2015 BAIMA, KYLAH L COMMUNITY DEVELOPMENT MANAGER Ot 305.1 03/26/2015 BAIMA, KYLAH L COMMUNITY DEVELOPMENT MANAGER Ot 401.9 03/26/2015 BAIMA, KYLAH L COMMUNITY DEVELOPMENT MANAGER Ot 414.00 03/26/2015 BAIMA, KYLAH L COMMUNITY DEVELOPMENT MANAGER Ot 424.90 03/26/2015 BAIMA, KYLAH L COMMUNITY DEVELOPMENT MANAGER Ot 4 96 03/26/2015 TAMARA OLVERA, PATRICIA L Ot 996. 78 03/26/2015 TAMARA OLVERA, PATRICIA L Ot V72. 63 03/26/2015 TAMARA OLVERA, PATRICIA L Ot V72. 81 03/26/2015 TAMARA OLVERA, PATRICIA L Ot V74. 8 03/26/2015 KARYN OLVERA, BYRON M Ot 272.4 03/26/2015 KARYN OLVERA, BYRON Bruner Ot 338.29 03/26/2015 KARYN OLVERA, BYRON Bruner Ot 401.9 03/26/2015 BAIMA, KYLAH L COMMUNITY DEVELOPMENT MANAGER Ot 414.00 03/26/2015 BAIMA, KYLAH L COMMUNITY DEVELOPMENT MANAGER Ot 429.3 03/26/2015 SHANA OLVERA, ALVIN M Ot V72.84 03/26/2015 BAIMA, KYLAH L COMMUNITY DEVELOPMENT MANAGER Ot 272.4 03/26/2015 SHANA OLVERA, ALVIN M Ot V72.84 03/26/2015 KOFI OLVERA FACC, ALI FACP CCDS Ot 272.4 03/26/2015 KOFI OLVERA FACC, ALI FACP CCDS Ot 414.00 03/26/2015 KOFI OLVERA FACC, ALI FACP CCDS Ot 414.8 03/26/2015 KOFI OLVERA FACC, ALI FACP CCDS Ot 458.9 03/26/2015 KOFI OLVERA FACC, ALI FACP CCDS Ot 780.4 03/26/2015 MADL, ETELVINA L COMMUNITY DEVELOPMENT MANAGER Ot 414.00 03/26/2015 MADL, ETELVINA L COMMUNITY DEVELOPMENT MANAGER Ot 780 .2 03/26/2015 MADL, ETELVINA L COMMUNITY DEVELOPMENT MANAGER Ot V45.82 03/26/2015 BAIMA, KYLAH L COMMUNITY DEVELOPMENT MANAGER Ot 272.4 03/26/2015 BAIMA, KYLAH L COMMUNITY DEVELOPMENT MANAGER Ot 276.9 03/26/2015 BAIMA, KYLAH L COMMUNITY DEVELOPMENT MANAGER Ot 401.9 03/26/2015 BAIMA, KYLAH L COMMUNITY DEVELOPMENT MANAGER Ot 414.00 03/26/2015 GELLENDER DO, BILL A Ot 250.00 03/26/2015 GELLENDER DO, BILL A Ot 272.4 03/26/2015 GELLENDER DO, BILL A Ot 414.00 04/05/2015 BAIMA, KYLAH L COMMUNITY DEVELOPMENT MANAGER Ot 272.4 04/05/2015 BAIMA, KYLAH L COMMUNITY DEVELOPMENT MANAGER Ot 276.9 04/05/2015 BAIMA, KYLAH L COMMUNITY DEVELOPMENT MANAGER Ot 401.9 04/05/2015 BAIMA, KYLAH L COMMUNITY DEVELOPMENT MANAGER Ot 414.00 04/05/2015 GELLENSEAN DO, BILL A Ot 250.00 04/05/2015 GELLENDER DOBILL Ot 272.4 04/05/2015 GELLENDER , BILL Garcia Ot 414.00 04/06/2015 ETELVINA LEONARD COMMUNITY DEVELOPMENT MANAGER Ot 414.00 04/06/2015 ETELVINA LEONARD COMMUNITY DEVELOPMENT MANAGER Ot 780 .2 04/06/2015 ETELVINA LEONARD COMMUNITY DEVELOPMENT MANAGER Ot V45.82 05/22/2015 GELLENDER DOBILL Ot 724.5 05/22/2015 GELLENDER DO, BILL Garcia Ot 733.90 05/24/2015 GELLENDER BILL PRAKASH Ot 715.37 06/25/2015 KOFI OLVERA FACC, ALI [...] FACP CCDS Ot 530.81 07/16/2015 THOMPSON QURESHI APRN Ot 916 .0 ABRASION HIP LEG 07/16/2015 THOMPSON QURESHI APRN Ot 923.10 CONTUSION OF FOREARM 07/16/2015 THOMPSON QURESHI APRN Ot 959 .7 LOWER LEG INJURY NOS 07/16/2015 THOMPSON QURESHI APRN Ot E000.8 OTHER EXTERNAL CAUSE STATUS 07/16/2015 THOMPSON QURESHI APRN Ot E849.6 ACCIDENT IN PUBLIC BLDG 07/16/2015 THOMPSON QURESHI APRN Ot E888.9 FALL NOS 07/23/2015 GELLENDER BILL PRAKASH Ot 250.00 07/23/2015 GELLENDER , BILL Garcia Ot 959.7 07/23/2015 BILL CLEMENTE DO Ot E000.8 07/23/2015 BILL CLEMENTE DO Ot E928.9 07/30/2015 HARDEEP DORANTES Ot 599.0 [...] 09/13/2015 Ot V76.12 09/13/2015 BAKARI OLVERA, EDUARDO Garcia Ot 599.8 2 09/13/2015 BAKARI OLVERA, EDUARDO Garcia Ot 788.3 0 09/13/2015 BAKARI OLVERA, EDUARDO Garcia Ot V72.6 3 09/13/2015 BAKARI OLVERA, EDUARDO Garcia Ot V74.8 09/13/2015 BAKARI OLVERA, EDUARDO A Ot 599.8 2 09/13/2015 BAKARI OLVERA, EDUARDO A Ot 788.3 0 09/13/2015 BAKARI OLVERA, EDUARDO A Ot V72.6 3 09/13/2015 BAKARI OLVERA, EDUARDO A Ot V74.8 09/13/2015 BAIMA, KYLAH L COMMUNITY DEVELOPMENT MANAGER Ot 396.3 09/13/2015 BAIMA, KYLAH L COMMUNITY DEVELOPMENT MANAGER Ot 397.0 09/13/2015 BAIMA, KYLAH L COMMUNITY DEVELOPMENT MANAGER Ot 401.9 09/13/2015 BAIMA, KYLAH L COMMUNITY DEVELOPMENT MANAGER Ot 414.00 09/13/2015 BAIMA, KYLAH L COMMUNITY DEVELOPMENT MANAGER Ot 250.00 09/13/2015 BAIMA, KYLAH L COMMUNITY DEVELOPMENT MANAGER Ot 272.4 09/13/2015 BAIMA, KYLAH L COMMUNITY DEVELOPMENT MANAGER Ot 305.1 09/13/2015 BAIMA, KYLAH L COMMUNITY DEVELOPMENT MANAGER Ot 401.9 09/13/2015 BAIMA, KYLAH L COMMUNITY DEVELOPMENT MANAGER Ot 414.00 09/13/2015 BAIMA, KYLAH L COMMUNITY DEVELOPMENT MANAGER Ot 424.90 09/13/2015 BAIMA, KYLAH L COMMUNITY DEVELOPMENT MANAGER Ot 4 96 09/13/2015 TAMARA OLVERA, PATRICIA L Ot 996. 78 09/13/2015 TAMARA OLVERA, PATRICIA L Ot V72. 63 09/13/2015 TAMARA OLVERA, PATRICIA L Ot V72. 81 09/13/2015 TAMARA OLVERA, PATRICIA L Ot V74. 8 09/13/2015 KARYN OLVERA, BYRON Bruner Ot 272.4 09/13/2015 KARYN OLVERA, BYRON Bruner Ot 338.29 09/13/2015 BYRON BOSS MD M Ot 401.9 09/13/2015 BAIMA, KYLAH L COMMUNITY DEVELOPMENT MANAGER Ot 414.00 09/13/2015 BAIMA, KYLAH L COMMUNITY DEVELOPMENT MANAGER Ot 429.3 09/13/2015 SHANA OLVERA, ALVIN Bruner Ot V72.84 09/13/2015 BAIMA, KYLAH L COMMUNITY DEVELOPMENT MANAGER Ot 272.4 09/13/2015 SHANA OLVERA, ALVIN M Ot V72.84 09/13/2015 KOFI OLVERA FACC, ALI FACP CCDS Ot 272.4 09/13/2015 KOFI OLVERA FACC, ALI FACP CCDS Ot 414.00 09/13/2015 KOFI OLVERA FACC, ALI FACP CCDS Ot 414.8 09/13/2015 KOFI OLVERA FACC, ALI FACP CCDS Ot 458.9 09/13/2015 KOFI OLVERA FACC, ALI FACP CCDS Ot 780.4 09/13/2015 MADETELVINA Goodman COMMUNITY DEVELOPMENT MANAGER Ot 414.00 09/13/2015 MADLETELVINA L COMMUNITY DEVELOPMENT MANAGER Ot 780 .2 09/13/2015 MADLETELVINA L COMMUNITY DEVELOPMENT MANAGER Ot V45.82 09/13/2015 BAIMAKYLAH L COMMUNITY DEVELOPMENT MANAGER Ot 272.4 09/13/2015 BAIMA KYLAH L COMMUNITY DEVELOPMENT MANAGER Ot 276.9 09/13/2015 BAIMA, KYLAH L COMMUNITY DEVELOPMENT MANAGER Ot 401.9 09/13/2015 BAIMASCARLETTKYLAH L COMMUNITY DEVELOPMENT MANAGER Ot 414.00 09/13/2015 [facility] DO, BILL A Ot 250.00 09/13/2015 [facility] DO, BILL A Ot 272.4 09/13/2015 [facility], BILL A Ot 414.00 09/13/2015 [facility] DO, BILL A Ot 724.5 09/13/2015 [facility] DO, BILL A Ot 733.90 09/13/2015 [facility] DO, BILL A Ot 715.37 09/13/2015 KOFI OLVERA FACC, ALI FACP CCDS Ot 250.00 09/13/2015 KOFI OLVERA FACC, ALI FACP CCDS Ot 272.4 09/13/2015 KOFI OLVERA FACC, ALI FACP CCDS Ot 278.00 09/13/2015 KOFI OLVERA FACC, ALI FACP CCDS Ot 305.1 09/13/2015 KOFI OLVERA FACC, ALI FACP CCDS Ot 401.9 09/13/2015 KOFI OLVERA FACC, ALI FACP CCDS Ot 414.00 09/13/2015 KOFI OLVERA FACC, ALI FACP CCDS Ot 447.72 09/13/2015 KOFI OLVERA FACC, ALI FACP CCDS Ot 458.9 09/13/2015 KOFI OLVERA FACC, ALI FACP CCDS Ot 496 09/13/2015 KOFI OLVERA FACC, ALI FACP CCDS Ot 530.81 09/13/2015 GELLENDER DO BILL A Ot 250.00 09/13/2015 GELLENDER DO, BILL A Ot 959.7 09/13/2015 BILL CLEMENTE DO Ot E000.8 09/13/2015 BILL CLEMENTE DO Ot E928.9 09/25/2015 PERLAKYLAH ABAD COMMUNITY DEVELOPMENT MANAGER Ot E78.5 09/25/2015 PERLAJENNIFFER KYLAH Goodman COMMUNITY DEVELOPMENT MANAGER Ot I25.9 10/07/2015 BETTINA ROMAN MD Ot E11. 9 TYPE 2 DIABETES MELLITUS WITHOUT COMPLIC 10/07/2015 BETTINA ROMAN MD Ot F17.210 NICOTINE DEPENDENCE, CIGARETTES, UNCOMPL 10/07/2015 BETTINA ROMAN MD Ot I10 ESSENTIAL (PRIMARY) HYPERTENSION 10/07/2015 BETTINA ROMAN MD Ot N39. 0 URINARY TRACT INFECTION, SITE NOT SPECIF 10/07/2015 BETTINA ROMAN MD Ot R10. 30 LOWER ABDOMINAL PAIN, UNSPECIFIED 10/07/2015 BETTINA ROMAN MD Ot Z79. 4 SNF (CURRENT) USE OF INSULIN 10/12/2015 BILL CLEMENTE DO Ot N39.0 10/16/2015 BILL CLEMENTE DO Ot N39.0 12/01/2015 KARLOS OLVERA, MARLA Ackerman Ot H05.221 EDEMA OF RIGHT ORBIT 12/01/2015 KARLOS OLVERA, MARLA Ackerman Ot R05 COUGH 12/01/2015 KARLOS OLVERA, MARLA Ackerman Ot R51 HEADACHE 12/09/2015 BETTINA ROMAN MD Ot H00.021 HORDEOLUM INTERNUM RIGHT UPPER EYELID 03/05/2016 INES REYNOSO MD Ot F17.210 NICOTINE DEPENDENCE, CIGARETTES, UNCOMPL 03/05/2016 INES REYNOSO MD Ot H10.31 UNSPECIFIED ACUTE CONJUNCTIVITIS, RIGHT 03/05/2016 INES REYNOSO MD Ot M19.071 PRIMARY OSTEOARTHRITIS, RIGHT ANKLE AND 03/05/2016 INES REYNOSO MD Ot S92.344A NONDISP FX OF FOURTH METATARSAL BONE, RI 03/05/2016 INES REYNOSO MD Ot W01.0XXA FALL SAME LEV FROM SLIP/TRIP W/O STRIKE 03/05/2016 INES REYNOSO MD Ot Y92.[address] IN UNSP NON-INSTITUT (PRIVATE 03/05/2016 ANGELES OLVERA, INES [place] Ot Y99.8 OTHER EXTERNAL CAUSE STATUS 03/09/2016 [...] R19.7 DIARRHEA, UNSPECIFIED 03/09/2016 MARLA EVERETT MD T Ot Z79.899 OTHER SNF (CURRENT) DRUG THERAPY 03/11/2016 MARLA EVERETT MD Ot E11.9 03/11/2016 MARLA EVERETT MD Ot F17.210 03/11/2016 MARLA EVERETT MD Ot I10 03/11/2016 MARLA EVERETT MD Ot I71.4 03/11/2016 MARLA EVERETT MD Ot J44.9 03/11/2016 MARLA EVERETT MD T Ot N39.0 03/11/2016 MARLA EVERETT MD T Ot R10.84 03/11/2016 MARLA EVERETT MD Ot R19.7 03/11/2016 MARLA EVERETT MD T Ot Z79.899 03/12/2016 KOFI OLVERA FAC, ALI FACP CCDS Ot E78.5 03/12/2016 KOFI OLVERA FACC, ALI FACP CCDS Ot I25.10 03/17/2016 KOFI OLVERA FACC, ALI FACP CCDS Ot E78.5 HYPERLIPIDEMIA, UNSPECIFIED 03/17/2016 KOFI OLVERA [facility] CCDS Ot I25.10 ATHSCL HEART DISEASE OF [place] CORONARY 03/21/2016 KOFI OLVERA [facility] CCD[facility] Ot E78.5 HYPERLIPIDEMIA, UNSPECIFIED 03/21/2016 KOFI OLVERA [facility] CCDS Ot I25.10 ATHSCL HEART DISEASE OF [place] CORONARY 04/02/2016 SHANA OLVERA, ALVIN Bruner Ot [...] V67.9 09/30/2016 Ot V67.9 12/30/2016 Ot V76.12 OT SCREEN MAMMO- MALIGN NEOPLASM OF [place] 12/30/2016 Ot 414.01 COR ONARY ATHEROSCLEROSIS OF [place] CORON 12/30/[address] PAIN NOS 12/30/2016 Ot 447.70 AOR TIC ECTASIA, UNSPECIFIED SITE 12/30/2016 Ot 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, MIDLINE 12/30/2016 Ot 788.30 UNS PECIFIED URINARY INCONTINENCE 12/30/2016 Ot V58.63 YIN G- TERM(CURRENT)USE OF ANTIPLATELET/AN 12/30/2016 Ot V72.63 PRE -PROCEDURAL LABORATORY EXAMINATION 12/30/2016 Ot V74.8 SCRE EN-BACTERIAL DIS NEC 12/30/2016 Ot 240.9 GOIT ER NOS 12/30/2016 Ot 241.0 NONT OX UNINODULAR GOITER 12/30/2016 Ot V76.12 OTH SCREEN MAMMO- MALIGN NEOPLASM OF [place] 12/30/2016 EDUARDO VILLEGAS MD Ot 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 12/30/2016 EDUARDO VILLEGAS MD Ot 788.3 0 UNSPECIFIED URINARY INCONTINENCE 12/30/2016 EDUARDO VILLEGAS MD Ot V72.6 3 PRE-PROCEDURAL LABORATORY EXAMINATION 12/30/2016 EDUARDO VILLEGAS MD Ot V74.8 SCREEN-BACTERIAL DIS NEC 12/30/2016 EDUARDO VILLEGAS MD Ot 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 12/30/2016 EDUARDO VILLEGAS MD Ot 788.3 0 UNSPECIFIED URINARY INCONTINENCE 12/30/2016 EDUARDO VILLEGAS MD Ot V72.6 3 PRE-PROCEDURAL LABORATORY EXAMINATION 12/30/2016 EDUARDO VILLEGAS MD Ot V74.8 SCREEN-BACTERIAL DIS NEC 12/30/2016 BAIMA, KYLAH L COMMUNITY DEVELOPMENT MANAGER Ot 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 12/30/2016 BAIMA, KYLAH L COMMUNITY DEVELOPMENT MANAGER Ot 397.0 TRICUSPID VALVE DISEASE 12/30/2016 BAIMA, KYLAH L COMMUNITY DEVELOPMENT MANAGER Ot 401.9 HYPERTENSION NOS 12/30/2016 BAIMA, KYLAH L COMMUNITY DEVELOPMENT MANAGER Ot 414.00 CORON ATHEROSCLER NOS TYPE VESSEL, NATIV 12/30/2016 BAIMA, KYLAH L COMMUNITY DEVELOPMENT MANAGER Ot 250.00 DIAB MELVA WO COMPL, TYPE II OR UNSPEC TY 12/30/2016 BAIMA, KYLAH L COMMUNITY DEVELOPMENT MANAGER Ot 272.4 HYPERLIPIDEMIA NEC/NOS 12/30/2016 BAIMA, KYLAH L COMMUNITY DEVELOPMENT MANAGER Ot 305.1 TOBACCO USE DISORDER 12/30/2016 BAIMA, KYLAH L COMMUNITY DEVELOPMENT MANAGER Ot 401.9 HYPERTENSION NOS 12/30/2016 BAIMA, KYLAH L COMMUNITY DEVELOPMENT MANAGER Ot 414.00 CORON ATHEROSCLER NOS TYPE VESSEL, NATIV 12/30/2016 BAIMA, KYLAH L COMMUNITY DEVELOPMENT MANAGER Ot 424.90 ENDOCARDITIS NOS 12/30/2016 BAIMA, KYLAH L COMMUNITY DEVELOPMENT MANAGER Ot 4 96 CHR AIRWAY OBSTRUCT NEC 12/30/2016 PATRICIA MCDONALD MD Ot 996. 78 OTH COMP DUE TO OTH INTRNL ORTHPEDIC DEV 12/30/2016 TAMARA OLVERA, PATRICIA Goodman Ot V72. 63 PRE-PROCEDURAL LABORATORY EXAMINATION 12/30/2016 TAMARA OLVERA, PATRICIA Goodman Ot V72. 81 RUES-TQC-KUOERBYFS CARDIOVASCULAR 12/30/2016 PATRICIA MCDONALD MD Ot V74. 8 SCREEN-BACTERIAL DIS NEC 12/30/2016 KARYN OLVERA, BYRON Bruner Ot 272.4 HYPERLIPIDEMIA NEC/NOS 12/30/2016 KARYN OLVERA, BYRON Bruner Ot 338.29 OTHER CHRONIC PAIN 12/30/2016 KARYN OLVERA, BYRON Bruner Ot 401.9 HYPERTENSION NOS 12/30/2016 BAIMA, KYLAH L COMMUNITY DEVELOPMENT MANAGER Ot 414.00 CORON ATHEROSCLER NOS TYPE VESSEL, NATIV 12/30/2016 ELEONORA KYLAH L COMMUNITY DEVELOPMENT MANAGER Ot 429.3 CARDIOMEGALY 12/30/2016 SHANA OLVERA, ALVIN Bruner Ot V72.84 EXAM PRE-OPERATIVE NOS 12/30/2016 ELEONORA KYLAH L COMMUNITY DEVELOPMENT MANAGER Ot 272.4 HYPERLIPIDEMIA NEC/NOS 12/30/2016 SHANA OLVERA, ALVIN Bruner Ot V72.84 EXAM PRE-OPERATIVE NOS 12/30/2016 [...] CCDS Ot 780.4 DIZZINESS AND GIDDINESS 12/30/2016 ELEONORA KYLAH L COMMUNITY DEVELOPMENT MANAGER Ot E78.5 HYPERLIPIDEMIA, UNSPECIFIED 12/30/2016 BAIMA, KYLAH L COMMUNITY DEVELOPMENT MANAGER Ot I25.9 CHRONIC ISCHEMIC HEART DISEASE, UNSPECIF 12/30/2016 MADL, ETELVINA L COMMUNITY DEVELOPMENT MANAGER Ot 414.00 CORON ATHEROSCLER NOS TYPE VESSEL, NATIV 12/30/2016 MADL, ETELVINA L COMMUNITY DEVELOPMENT MANAGER Ot 780 .2 SYNCOPE AND COLLAPSE 12/30/2016 MADL, ETELVINA L COMMUNITY DEVELOPMENT MANAGER Ot V45.82 PERCUTANEOUS TRANSLUM CORON ANGIOPLASTY 12/30/2016 ELEONORA KYLAH L COMMUNITY DEVELOPMENT MANAGER Ot 272.4 HYPERLIPIDEMIA NEC/NOS 12/30/2016 KYLAH CREWS COMMUNITY DEVELOPMENT MANAGER Ot 276.9 ELECTROLYT/FLUID DIS NEC 12/30/2016 KYLAH CREWS COMMUNITY DEVELOPMENT MANAGER Ot 401.9 HYPERTENSION NOS 12/30/2016 KYLAH CREWS COMMUNITY DEVELOPMENT MANAGER Ot 414.00 CORON ATHEROSCLER NOS TYPE VESSEL, NATIV 12/30/2016 AMELIABILL HAYES DO Ot 250.00 DIAB MELVA WO COMPL, TYPE II OR UNSPEC TY 12/30/2016 BILL CLEMENTE DO Ot 272.4 HYPERLIPIDEMIA NEC/NOS 12/30/2016 GELLENBARRY BILL Radha Ot 414.00 CORON ATHEROSCLER NOS TYPE VESSEL, [...] Ot 305.1 TOBACCO USE DISORDER 12/30/2016 KOFI HERNÁNDEZC, ALI FACP CCDS Ot 401.9 HYPERTENSION NOS 12/30/2016 KOFI OLVERA FACC, ALI FACP CCDS Ot 414.00 CORON ATHEROSCLER NOS TYPE VESSEL, NATIV 12/30/2016 KOFI OLVERA FACC, ALI FACP CCDS Ot 447.72 ABDOMINAL AORTIC ECTASIA 12/30/2016 KOFI OLVERA FACC, ALI FACP CCDS Ot 458.9 HYPOTENSION NOS 12/30/2016 KOFI OLVERA FACC, ALI FACP CCDS Ot 496 CHR AIRWAY OBSTRUCT NEC 12/30/2016 KOFI OLVERA FACC, ALI FACP CCDS Ot 530.81 ESOPHAGEAL REFLUX 12/30/2016 KYLAH CREWS Maxine COMMUNITY DEVELOPMENT MANAGER Ot I71.4 ABDOMINAL AORTIC ANEURYSM, WITHOUT RUPTU [...] INFECTION, SITE NOT SPECIF 12/30/2016 KOFI OLVERA FAC, ALI FACP CCDS Ot E78.5 HYPERLIPIDEMIA, UNSPECIFIED 12/30/2016 KOFI OLVERA FAC, ALI FACP CCDS Ot I25.10 ATHSCL HEART DISEASE OF [place] CORONARY 01/01/2017 [place] STAPLETON COMMUNITY DEVELOPMENT MANAGER Ot I71.4 ABDOMINAL AORTIC ANEURYSM, WITHOUT RUPTU 01/01/2017 W[place]AD[place]FO STAPLETON COMMUNITY DEVELOPMENT MANAGER Ot I71.4 ABDOMINAL AORTIC ANEURYSM, WITHOUT RUPTU 01/01/2017 W[place]ADELFO STAPLETON Franc COMMUNITY DEVELOPMENT MANAGER Ot I71.4 ABDOMINAL AORTIC ANEURYSM, WITHOUT RUPTU 01/21/2017 W[place]VU STAPLETONIE Franc COMMUNITY DEVELOPMENT MANAGER Ot I71.4 ABDOMINAL AORTIC ANEURYSM, WITHOUT RUPTU [...] OF [place] 11/26/2017 EDUARDO VILLEGAS MD Ot 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 11/26/2017 EDUARDO VILLEGAS MD Ot 788.3 0 UNSPECIFIED URINARY INCONTINENCE 11/26/2017 EDUARDO VILLEGAS MD Ot V72.6 3 PRE-PROCEDURAL LABORATORY EXAMINATION 11/26/2017 EDUARDO VILLEGAS MD Ot V74.8 SCREEN-BACTERIAL DIS NEC 11/26/2017 EDUARDO VILLEGAS MD Ot 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 11/26/2017 EDUARDO VILLEGAS MD Ot 788.3 0 UNSPECIFIED URINARY INCONTINENCE 11/26/2017 BAKARI OLVERA, EDUARDO Garcia Ot V72.6 3 PRE-PROCEDURAL LABORATORY EXAMINATION 11/26/2017 BAKARI OLVERA, EDUARDO Garcia Ot V74.8 SCREEN-BACTERIAL DIS NEC 11/26/2017 BAIMA, KYLAH L COMMUNITY DEVELOPMENT MANAGER Ot 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 11/26/2017 BAIMA, KYLAH L COMMUNITY DEVELOPMENT MANAGER Ot 397.0 TRICUSPID VALVE DISEASE 11/26/2017 BAIMA, KYLAH L COMMUNITY DEVELOPMENT MANAGER Ot 401.9 HYPERTENSION NOS 11/26/2017 BAIMA, KYLAH L COMMUNITY DEVELOPMENT MANAGER Ot 414.00 CORON ATHEROSCLER NOS TYPE VESSEL, NATIV 11/26/2017 BAIMA, KYLAH L COMMUNITY DEVELOPMENT MANAGER Ot 250.00 DIAB MELVA WO COMPL, TYPE II OR UNSPEC TY 11/26/2017 BAIMA, KYLAH L COMMUNITY DEVELOPMENT MANAGER Ot 272.4 HYPERLIPIDEMIA NEC/NOS 11/26/2017 BAIMA, KYLAH L COMMUNITY DEVELOPMENT MANAGER Ot 305.1 TOBACCO USE DISORDER 11/26/2017 BAIMA, KYLAH L COMMUNITY DEVELOPMENT MANAGER Ot 401.9 HYPERTENSION NOS 11/26/2017 BAIMA, KYLAH L COMMUNITY DEVELOPMENT MANAGER Ot 414.00 CORON ATHEROSCLER NOS TYPE VESSEL, NATIV 11/26/2017 BAIMA, KYLAH L COMMUNITY DEVELOPMENT MANAGER Ot 424.90 ENDOCARDITIS NOS 11/26/2017 BAIMA, KYLAH L COMMUNITY DEVELOPMENT MANAGER Ot 4 96 CHR AIRWAY OBSTRUCT NEC 11/26/2017 PATRICIA MCDONALD MD Ot 996. 78 OTH COMP DUE TO OTH INTRNL ORTHPEDIC DEV 11/26/2017 PATRICIA MCDONALD MD Ot V72. 63 PRE-PROCEDURAL LABORATORY EXAMINATION 11/26/2017 PATRICIA MCDONALD MD Ot V72. 81 [id number] CARDIOVASCULAR 11/26/2017 PATRICIA MCDONALD MD Ot V74. 8 SCREEN-BACTERIAL DIS NEC 11/26/2017 BYRON BOSS MD Ot 272.4 HYPERLIPIDEMIA NEC/NOS 11/26/2017 BYRON BOSS MD Ot 338.29 OTHER CHRONIC PAIN 11/26/2017 BYRON OBSS MD Ot 401.9 HYPERTENSION NOS 11/26/2017 BAIMA, KYLAH L COMMUNITY DEVELOPMENT MANAGER Ot 414.00 CORON ATHEROSCLER NOS TYPE VESSEL, NATIV 11/26/2017 BAIMA, KYLAH L COMMUNITY DEVELOPMENT MANAGER Ot 429.3 CARDIOMEGALY 11/26/2017 SHANA OLVERA, ALVIN Bruner Ot V72.84 EXAM PRE-OPERATIVE NOS 11/26/2017 ELEONORASCARLETTKYLAH L COMMUNITY DEVELOPMENT MANAGER Ot 272.4 HYPERLIPIDEMIA NEC/NOS 11/26/2017 SHANA OLVERA, ALVIN Bruner Ot V72.84 EXAM PRE-OPERATIVE NOS 11/26/2017 KOFI OLVERA FACC, ALI FACP CCDS Ot 272.4 HYPERLIPIDEMIA NEC/NOS 11/26/2017 KOFI OLVERA FACC, ALI FACP CCDS Ot 414.00 CORON ATHEROSCLER NOS TYPE VESSEL, NATIV 11/26/2017 KOFI HERNÁNDEZC, ALI FACP CCDS Ot 414.8 CHR ISCHEMIC HRT DIS NEC 11/26/2017 KOFI OLVERA FACC, ALI FACP CCDS Ot 458.9 HYPOTENSION NOS 11/26/2017 KOFI OLVERA FACC, ALI FACP CCDS Ot 780.4 DIZZINESS AND GIDDINESS 11/26/2017 ELEONORA KYLAH L COMMUNITY DEVELOPMENT MANAGER Ot E78.5 HYPERLIPIDEMIA, UNSPECIFIED 11/26/2017 SCARLETT CREWSHER L COMMUNITY DEVELOPMENT MANAGER Ot I25.9 CHRONIC ISCHEMIC HEART DISEASE, UNSPECIF 11/26/2017 MADL ETELVINA L COMMUNITY DEVELOPMENT MANAGER Ot 414.00 CORON ATHEROSCLER NOS TYPE VESSEL, NATIV 11/26/2017 MADL ETELVINA L COMMUNITY DEVELOPMENT MANAGER Ot 780 .2 SYNCOPE AND COLLAPSE 11/26/2017 MADL ETELVINA L COMMUNITY DEVELOPMENT MANAGER Ot V45.82 PERCUTANEOUS TRANSLUM CORON ANGIOPLASTY 11/26/2017 KYLAH CREWS L COMMUNITY DEVELOPMENT MANAGER Ot 272.4 HYPERLIPIDEMIA NEC/NOS 11/26/2017 ELEONORA KYLAH L COMMUNITY DEVELOPMENT MANAGER Ot 276.9 ELECTROLYT/FLUID DIS NEC 11/26/2017 SCARLETT CREWSHER L COMMUNITY DEVELOPMENT MANAGER Ot 401.9 HYPERTENSION NOS 11/26/2017 ELEONORA KYLAH L COMMUNITY DEVELOPMENT MANAGER Ot 414.00 CORON ATHEROSCLER NOS TYPE VESSEL, NATIV 11/26/2017 BILL CLEMENTE DO Ot 250.00 DIAB MELVA WO COMPL, TYPE II OR UNSPEC TY 11/26/2017 BILL CLEMENTE DO Ot 272.4 HYPERLIPIDEMIA NEC/NOS 11/26/2017 BILL CLEMENTE DO Ot 414.00 CORON ATHEROSCLER NOS TYPE VESSEL, NATIV 11/26/2017 BILL CLEMENTE DO Ot 724.5 BACKACHE NOS 11/26/2017 BILL CLEMENTE DO Ot 733.90 BONE CARTILAGE DIS NOS 11/26/2017 BILL CLEMENTE DO Ot 715.37 LOC OSTEOARTH NOS-ANKLE 11/26/2017 KOFI HERNÁNDEZC, ALI FACP CCDS Ot 250.00 DIAB MELVA [...] Ot 530.81 ESOPHAGEAL REFLUX 11/26/2017 KYLAH CREWS COMMUNITY DEVELOPMENT MANAGER Ot I71.4 ABDOMINAL AORTIC ANEURYSM, WITHOUT RUPTU 11/26/2017 BRYN PRAKASH BILL Radha Ot 250.00 DIAB MELVA WO COMPL, TYPE II OR UNSPEC TY 11/26/2017 BRYN PRAKASH BILL Radha Ot 959.7 LOWER LEG INJURY NOS 11/26/2017 BRYN PRAKASH BILL Radha Ot E000.8 OTHER EXTERNAL CAUSE STATUS 11/26/2017 BRYN PRAKASH BILL Radha Ot E928.9 ACCIDENT NOS 11/26/2017 BRYN PRAKASH BILL Radha Ot N39.0 URINARY TRACT INFECTION, SITE NOT SPECIF 11/26/2017 KOFI OLVERA FACC, ALI FACP CCDS Ot E78.5 HYPERLIPIDEMIA, UNSPECIFIED 11/26/2017 KOFI OLVERA FACC, ALI FACP CCDS Ot I25.10 ATHSCL HEART DISEASE OF [place] CORONARY 11/26/2017 ADELFO [place] COMMUNITY DEVELOPMENT MANAGER Ot I71.4 ABDOMINAL AORTIC ANEURYSM, WITHOUT RUPTU 11/26/2017 BRYN BILL PRAKASH Ot Z12.31 ENCNTR SCREEN MAMMOGRAM FOR MALIGNANT NE 11/26/2017 BILL CLEMENTE DO Ot R92.8 OTH ABN AND INCONCLUSIVE FINDINGS ON DX 12/01/2017 KOFI OLVERA FACC, ALI FACP CCDS Ot E11.9 TYPE 2 DIABETES MELLITUS WITHOUT COMPLIC 12/01/2017 KOFI HERNÁNDEZC, ALI FACP CCDS Ot I10 ESSENTIAL (PRIMARY) HYPERTENSION 12/01/2017 KOFI OLVERA FACC, ALI FACP CCDS Ot I25.10 ATHSCL HEART DISEASE OF [place] CORONARY 12/01/2017 KOFI HERNÁNDEZC, ALI FACP CCDS Ot I25.5 ISCHEMIC CARDIOMYOPATHY 12/01/2017 KOFI HERNÁNDEZC, ALI FACP CCDS Ot I73.9 [...] CCDS Ot I25.10 ATHSCL HEART DISEASE OF [place] CORONARY 12/03/2017 KOFI OLVERA FACC, ALI FACP CCDS Ot I25.5 ISCHEMIC CARDIOMYOPATHY 12/03/2017 KOFI OLVERA FACC, ALI FACP CCDS Ot I73.9 PERIPHERAL VASCULAR DISEASE, UNSPECIFIED 12/03/2017 KOFI OLVERA FACC, ALI FACP CCDS Ot J43.8 OTHER EMPHYSEMA 12/03/2017 KOFI HERNÁNDEZC, ALI FACP CCDS Ot R06.02 SHORTNESS OF BREATH 12/03/2017 KOFI OLVERA FACC, ALI FACP CCDS Ot Z72.0 TOBACCO USE 12/10/2017 KOFI HERNÁNDEZC, ALI FACP CCDS Ot E11.9 TYPE 2 DIABETES MELLITUS WITHOUT COMPLIC 12/10/2017 KOFI HERNÁNDEZC, ALI FACP CCDS Ot I10 ESSENTIAL (PRIMARY) HYPERTENSION 12/10/2017 KOFI OLVERA FACC, ALI FACP CCDS Ot I25.10 ATHSCL HEART DISEASE OF [place] CORONARY 12/10/2017 KOFI OLVERA FACC, ALI FACP CCDS Ot I25.5 ISCHEMIC CARDIOMYOPATHY 12/10/2017 KOFI OLVERA FACC, ALI FACP CCDS Ot I73.9 PERIPHERAL VASCULAR DISEASE, UNSPECIFIED 12/10/2017 KOFI OLVERA FACC, ALI FACP CCDS Ot J43.8 OTHER EMPHYSEMA 12/10/2017 KOFI OLVERA FACC, ALI FACP CCDS Ot R06.02 SHORTNESS OF BREATH 12/10/2017 KOFI OLVERA FACC, ALI FACP CCDS Ot Z72.0 TOBACCO USE 12/17/2017 KOFI OLVERA FACC, ALI FACP CCDS Ot E11.9 TYPE 2 DIABETES MELLITUS WITHOUT COMPLIC 12/17/2017 KOFI OLVERA FACC, ALI FACP CCDS Ot I10 ESSENTIAL (PRIMARY) HYPERTENSION 12/17/2017 KOFI OLVERA FACC, ALI FACP CCDS Ot I25.10 ATHSCL HEART DISEASE OF [place] CORONARY 12/17/2017 KOFI OLVERA FACC, ALI FACP CCDS Ot I25.5 ISCHEMIC CARDIOMYOPATHY 12/17/2017 KOFI OLVERA FACC, ALI FACP CCDS Ot I73.9 PERIPHERAL VASCULAR DISEASE, UNSPECIFIED 12/17/2017 KOFI OLVERA FACC, ALI FACP CCDS Ot J43.8 OTHER EMPHYSEMA 12/17/2017 KOFI OLVERA FACC, ALI FACP CCDS Ot R06.02 SHORTNESS OF BREATH 12/17/2017 KOFI OLVERA FACC, ALI FACP CCDS Ot Z72.0 TOBACCO USE 12/22/2017 KYLAH CREWS COMMUNITY DEVELOPMENT MANAGER Ot I25.5 ISCHEMIC CARDIOMYOPATHY 12/28/2017 KOFI OLVERA FACC, ALI FACP CCDS Ot E11.9 TYPE 2 DIABETES MELLITUS WITHOUT COMPLIC 12/28/2017 KOFI OLVERA FACC, ALI FACP CCDS Ot I10 ESSENTIAL (PRIMARY) HYPERTENSION 12/28/2017 KOFI OLVERA FACC, ALI FACP CCDS Ot I25.10 ATHSCL HEART DISEASE OF [place] CORONARY 12/28/2017 KOFI OLVERA FACC, ALI FACP CCDS Ot I25.5 ISCHEMIC CARDIOMYOPATHY 12/28/2017 KOFI OLVERA FACC, ALI FACP CCDS Ot I73.9 PERIPHERAL VASCULAR DISEASE, UNSPECIFIED 12/28/2017 KOFI OLVERA FACC, ALI FACP CCDS Ot J43.8 OTHER EMPHYSEMA 12/28/2017 KOFI HERNÁNDEZ, ALI FACP CCDS Ot R06.02 SHORTNESS OF BREATH 12/28/2017 KFOI OLVERA [facility], ALI FACP CCDS Ot Z72.0 TOBACCO USE 12/30/2017 KOFI OLVERA FACTj, ALI FACP CCDS Ot E11.9 TYPE 2 DIABETES MELLITUS WITHOUT COMPLIC 12/30/2017 KOFI OLVERA FACTj, ALI FACP CCDS Ot E78.4 OTHER HYPERLIPIDEMIA 12/30/2017 [facility] Ot I25.10 ATHSCL HEART DISEASE OF [place] CORONARY 12/30/2017 KOFI OLVERA [facility], ALI FACP CCDS Ot I25.5 ISCHEMIC CARDIOMYOPATHY 12/30/2017 KOFI OLVERA FACC, ALI FACP CCDS Ot I65.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 AND STENOSIS OF BILATERAL CALVERT 12/30/2017 KOFI [facility]VER[facility] FACP CCDS Ot I73.9 PERIPHERAL VASCULAR DISEASE, UNSPECIFIED 12/30/2017 KOFI OLVERA FACC, ALI FACP CCDS Ot R06.02 SHORTNESS OF BREATH 12/30/2017 KOFI OLVERA [facility], ALI FACP CCDS Ot Z72.0 TOBACCO USE 01/07/2018 HARDEEP DORANTES Ot E11.9 TYPE 2 DIABETES MELLITUS WITHOUT COMPLIC 01/07/2018 HARDEEP DORANTES Ot E78.00 PURE HYPERCHOLESTEROLEMIA, UNSPECIFIED 01/07/2018 HARDEEP DORANTES Ot F32.9 MAJOR DEPRESSIVE DISORDER, SINGLE EPISOD 01/07/2018 HARDEEP DORANTES Ot F41.9 ANXIETY DISORDER, UNSPECIFIED 01/07/2018 HARDEEP DORANTES Ot G43.909 MIGRAINE, UNSP, NOT INTRACTABLE, WITHOUT 01/07/2018 HARDEEP DORANTES Ot I 10 ESSENTIAL (PRIMARY) HYPERTENSION 01/07/2018 HARDEEP DORANTES Ot J43.9 EMPHYSEMA, UNSPECIFIED 01/07/2018 HARDEEP DORANTES Ot K21.9 GASTRO-ESOPHAGEAL REFLUX DISEASE WITHOUT 01/07/2018 HARDEEP DORANTES Ot M79.652 PAIN IN LEFT THIGH 01/07/2018 HARDEEP DORANTES Ot S70.12XA CONTUSION OF LEFT THIGH, INITIAL ENCOUNT 01/07/2018 HARDEEP DORANTES Ot W19.XXXA UNSPECIFIED FALL, INITIAL ENCOUNTER 01/07/2018 HARDEEP DORANTES Ot Z79.84 SNF (CURRENT) USE OF ORAL HYPOGLYC 01/07/2018 HARDEEP [...] CORONARY ANGIOPLASTY IMPLANT 01/08/2018 KOFI OLVERA FACC, ALI FACP CCDS Ot E11.9 TYPE 2 DIABETES MELLITUS WITHOUT COMPLIC 01/08/2018 KOFI OLVERA FACC, ALI FACP CCDS Ot E78.4 OTHER HYPERLIPIDEMIA 01/08/2018 KOFI OLVERA FACC, ALI FACP CCDS Ot I25.10 ATHSCL HEART DISEASE OF [place] CORONARY 01/08/2018 KOFI OLVERA FACC, ALI FACP CCDS Ot I25.5 ISCHEMIC CARDIOMYOPATHY 01/08/2018 KOFI OLVERA FACC, ALI FACP CCDS Ot I65.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 AND STENOSIS OF BILATERAL CALVERT 01/08/2018 KOFI OLVERA FACC, ALI FACP CCDS Ot I73.9 PERIPHERAL VASCULAR DISEASE, UNSPECIFIED 01/08/2018 KOFI OLVERA FACC, ALI FACP CCDS Ot R06.02 SHORTNESS OF BREATH 01/08/2018 KOFI OLVERA FACC, ALI FACP CCDS Ot Z72.0 TOBACCO USE 01/11/2018 HARDEEP DORANTES Ot E11.9 TYPE 2 DIABETES MELLITUS WITHOUT COMPLIC 01/11/2018 HARDEEP DORANTES Ot E78.00 PURE HYPERCHOLESTEROLEMIA, UNSPECIFIED 01/11/2018 HARDEEP DORANTES Ot F32.9 MAJOR DEPRESSIVE DISORDER, SINGLE EPISOD 01/11/2018 HARDEEP DORANTES Ot F41.9 ANXIETY DISORDER, UNSPECIFIED 01/11/2018 HARDEEP DORANTES Ot G43.909 MIGRAINE, UNSP, NOT INTRACTABLE, WITHOUT 01/11/2018 HARDEEP DORANTES Ot I 10 ESSENTIAL (PRIMARY) HYPERTENSION 01/11/2018 HARDEEP DORANTES Ot J43.9 EMPHYSEMA, UNSPECIFIED 01/11/2018 HARDEEP DORANTES Ot K21.9 GASTRO-ESOPHAGEAL REFLUX DISEASE WITHOUT 01/11/2018 HARDEEP DORANTES Ot M79.652 PAIN IN LEFT THIGH 01/11/2018 HARDEEP DORANTES Ot S70.12XA CONTUSION OF LEFT THIGH, INITIAL ENCOUNT 01/11/2018 HARDEEP DORANTES Ot W19.XXXA UNSPECIFIED FALL, INITIAL ENCOUNTER 01/11/2018 HARDEEP DORANTES Ot Z79.84 SNF (CURRENT) USE OF ORAL HYPOGLYC 01/11/2018 HARDEEP DORANTES Ot Z87.440 PERSONAL HISTORY OF URINARY (TRACT) INFE 01/11/2018 HARDEEP DORANTES Ot Z88.0 ALLERGY STATUS TO PENICILLIN 01/11/2018 HARDEEP DORANTES Ot Z88.5 ALLERGY STATUS TO NARCOTIC AGENT STATUS 01/11/2018 HAREDEP DORANTES Ot Z88.6 ALLERGY STATUS TO ANALGESIC [...] NOT INTRACTABLE, WITHOUT 01/13/2018 HARDEEP DORANTES Ot I 10 ESSENTIAL (PRIMARY) HYPERTENSION 01/13/2018 HARDEEP DORANTES Ot J43.9 EMPHYSEMA, UNSPECIFIED 01/13/2018 SATHISH PA, HARDEEP L Ot K21.9 GASTRO-ESOPHAGEAL REFLUX DISEASE WITHOUT 01/13/2018 HARDEEP DORANTES Ot M79.652 PAIN IN LEFT THIGH 01/13/2018 HARDEEP DORANTES Ot S70.12XA CONTUSION OF LEFT THIGH, INITIAL ENCOUNT 01/13/2018 HARDEEP DORANTES Ot W19.XXXA UNSPECIFIED FALL, INITIAL ENCOUNTER 01/13/2018 HARDEEP DORANTES Ot Z79.84 SNF (CURRENT) USE OF ORAL HYPOGLYC 01/13/2018 HARDEEP [...] F31.9 BIPOLAR DISORDER, UNSPECIFIED 02/15/2018 MARLA EVERETT MD Ot F41.9 ANXIETY DISORDER, UNSPECIFIED 02/15/2018 MARLA EVERETT MD Ot G43.909 MIGRAINE, UNSP, NOT INTRACTABLE, WITHOUT 02/15/2018 MARLA EVERETT MD Ot I10 ESSENTIAL (PRIMARY) HYPERTENSION 02/15/2018 MARLA EVERETT MD Ot I25.10 ATHSCL HEART DISEASE OF [place] CORONARY 02/15/2018 MARLA EVERETT MD Ot J43.9 EMPHYSEMA, UNSPECIFIED 02/15/2018 MARLA EVERETT MD, Ot K21.9 GASTRO-ESOPHAGEAL REFLUX DISEASE WITHOUT 02/15/2018 MARLA EVERETT MD Ot R07.89 OTHER CHEST PAIN 02/15/2018 MARLA EVERETT MD Ot Z79.82 SENIOR SUPPORT ANALYST (CURRENT) USE OF ASPIRIN 02/15/2018 MARLA EVERETT MD Ot Z79.84 SNF (CURRENT) USE OF ORAL HYPOGLYC 02/15/2018 MARLA [...] F31.9 BIPOLAR DISORDER, UNSPECIFIED 02/17/2018 MARLA EVERETT MD Ot F41.9 ANXIETY DISORDER, UNSPECIFIED 02/17/2018 MARLA EVERETT MD Ot G43.909 MIGRAINE, UNSP, NOT INTRACTABLE, WITHOUT 02/17/2018 MARLA EVERETT MD Ot I10 ESSENTIAL (PRIMARY) HYPERTENSION 02/17/2018 MARLA EVERETT MD, Ot I25.10 ATHSCL HEART DISEASE OF [place] CORONARY 02/17/2018 MARLA EVERETT MD, Ot J43.9 EMPHYSEMA, UNSPECIFIED 02/17/2018 MARLA EVERETT MD, Ot K21.9 GASTRO-ESOPHAGEAL REFLUX DISEASE WITHOUT 02/17/2018 MARLA EVERETT MD Ot R07.89 OTHER CHEST PAIN 02/17/2018 MARLA EVERETT MD, Ot Z79.82 SENIOR SUPPORT ANALYST (CURRENT) USE OF ASPIRIN 02/17/2018 MARLA EVERETT MD, Ot Z79.84 SENIOR SUPPORT ANALYST (CURRENT) USE OF ORAL HYPOGLYC 02/17/2018 MARLA EVERETT MD, Ot Z87.01 PERSONAL HISTORY OF PNEUMONIA (RECURRENT 02/17/2018 MARLA EVERETT MD, Ot Z87.81 PERSONAL HISTORY OF (HEALED) TRAUMATIC F 02/17/2018 MARLA EVERETT MD, Ot Z88.0 ALLERGY STATUS TO PENICILLIN 02/17/2018 MARLA EVERETT MD, Ot Z88.5 ALLERGY STATUS TO NARCOTIC AGENT STATUS 02/17/2018 MARLA EVERETT MD, Ot Z88.6 ALLERGY STATUS TO ANALGESIC AGENT STATUS 02/17/2018 MARLA EVERETT MD Ot Z90.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 BOTH CERVIX AND UTER 02/17/2018 MARLA EVERETT MD Ot Z95.5 PRESENCE OF CORONARY ANGIOPLASTY IMPLANT 02/21/2018 FELICIA ENCINAS DO Ot E11.9 TYPE 2 DIABETES MELLITUS WITHOUT COMPLIC 02/21/2018 FELICIA ENCINAS DO K Ot E78.00 PURE HYPERCHOLESTEROLEMIA, UNSPECIFIED 02/21/2018 FELICIA ENCINAS DO K Ot F17.210 NICOTINE DEPENDENCE, CIGARETTES, UNCOMPL 02/21/2018 FELICIA ENCINAS DO Ot F32.9 MAJOR DEPRESSIVE DISORDER, SINGLE EPISOD 02/21/2018 FELICIA ENCINAS DO Ot F41.9 ANXIETY DISORDER, UNSPECIFIED 02/21/2018 FELICIA ENCINSA DO Ot G43.909 MIGRAINE, UNSP, NOT INTRACTABLE, WITHOUT 02/21/2018 FELICIA ENCINAS DO Ot I10 ESSENTIAL (PRIMARY) HYPERTENSION 02/21/2018 HUANG TRENTON PRAKASHA Adriana Ot I25.10 ATHSCL HEART DISEASE OF [place] CORONARY 02/21/2018 FELICIA ENCINAS DO Ot J43.9 EMPHYSEMA, UNSPECIFIED 02/21/2018 TRENTON ENCINAS DOA Adriana Ot K21.9 GASTRO-ESOPHAGEAL REFLUX DISEASE WITHOUT 02/21/2018 TRENTON ENCINAS DOA Adriana Ot N39.0 URINARY TRACT INFECTION, SITE NOT SPECIF 02/21/2018 FELICIA ENCINAS DO Ot R20.2 PARESTHESIA OF SKIN 02/21/2018 FELICIA ENCINAS DO Ot R53.1 WEAKNESS 02/21/2018 FELICIA ENCINAS DO Ot Z79.84 SENIOR SUPPORT ANALYST (CURRENT) USE OF ORAL HYPOGLYC 02/21/2018 FELICIA ENCINAS DO Ot Z87.01 PERSONAL HISTORY OF PNEUMONIA (RECURRENT 02/21/2018 FELICIA ENCINAS DO Ot Z88.0 ALLERGY STATUS TO PENICILLIN 02/21/2018 FELICIA ENCINAS DO Ot Z88.6 ALLERGY STATUS TO ANALGESIC AGENT STATUS 02/21/2018 HUANG FELICIA PRAKASH Ot Z88.8 ALLERGY STATUS TO OTH DRUG/MEDS/BIOL SUB 02/21/2018 TRENTON ENCINAS DOA Adriana Ot Z90.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 BOTH CERVIX AND UTER 02/21/2018 FELICIA ENCINAS DO Ot Z95.5 PRESENCE OF CORONARY ANGIOPLASTY IMPLANT 02/23/2018 FELICIA ENCNIAS DO Ot E11.9 TYPE 2 DIABETES MELLITUS WITHOUT COMPLIC 02/23/2018 FELICIA ENCINAS DO Ot E78.00 PURE HYPERCHOLESTEROLEMIA, UNSPECIFIED 02/23/2018 FELICIA ENCINAS DO Ot F17.210 NICOTINE DEPENDENCE, CIGARETTES, UNCOMPL 02/23/2018 TRENTON ENCINAS DOA Adriana Ot F32.9 MAJOR DEPRESSIVE DISORDER, SINGLE EPISOD 02/23/2018 FELICIA ENCINAS DO Ot F41.9 ANXIETY DISORDER, UNSPECIFIED 02/23/2018 FELICIA ENCINAS DO Ot G43.909 MIGRAINE, UNSP, NOT INTRACTABLE, WITHOUT 02/23/2018 HUANG PRAKASH FELICIA K Ot I10 ESSENTIAL (PRIMARY) HYPERTENSION 02/23/2018 TRENTON ENCINAS DOA Adriana Ot I25.10 ATHSCL HEART DISEASE OF [place] CORONARY 02/23/2018 FELICIA ENCINAS DO Ot J43.9 EMPHYSEMA, UNSPECIFIED 02/23/2018 FELICIA ENCINAS DO Ot K21.9 GASTRO-ESOPHAGEAL REFLUX DISEASE WITHOUT 02/23/2018 FELICIA ENCINAS DO Ot N39.0 URINARY TRACT INFECTION, SITE NOT SPECIF 02/23/2018 FELICIA ENCINAS DO Ot R20.2 PARESTHESIA OF SKIN 02/23/2018 HUANG PRAKASH FELICIA Wright Ot R53.1 WEAKNESS 02/23/2018 HUANG PRAKASH FELICIA Wright Ot Z79.84 SNF (CURRENT) USE OF ORAL HYPOGLYC 02/23/2018 HUANG PRAKASH FELICIA Wright Ot Z87.01 PERSONAL HISTORY OF PNEUMONIA (RECURRENT 02/23/2018 HUANG PRAKASH FELICIA Wright Ot Z88.0 ALLERGY STATUS TO PENICILLIN 02/23/2018 HUANG PRAKASH FELICIA Wright Ot Z88.6 ALLERGY STATUS TO ANALGESIC AGENT STATUS 02/23/2018 HUANG PRAKASH FELICIA Wright Ot Z88.8 ALLERGY STATUS TO OTH DRUG/MEDS/BIOL SUB 02/23/2018 HUANG PRAKASH FELICIA Wright Ot Z90.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 BOTH CERVIX AND UTER 02/23/2018 HUANG PRAKASH FELICIA Wright Ot Z95.5 PRESENCE OF CORONARY ANGIOPLASTY IMPLANT 02/26/2018 LEONEL ORTIZ MD Ot R13.10 DYSPHAGIA, UNSPECIFIED 02/26/2018 LEONEL ORTIZ MD Ot Z01.81 8 ENCOUNTER FOR OTHER PREPROCEDURAL EXAMIN 03/02/2018 Ot V76.12 OT SCREEN MAMMO- MALIGN NEOPLASM OF [place] 03/02/2018 EDUARDO VILLEGAS MD Ot 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 03/02/2018 EDUARDO VILLEGAS MD Ot 788.3 0 UNSPECIFIED URINARY INCONTINENCE 03/02/2018 EDUARDO VILLEGAS MD Ot V72.6 3 PRE-PROCEDURAL LABORATORY EXAMINATION 03/02/2018 EDUARDO VILLEGAS MD Ot V74.8 SCREEN-BACTERIAL DIS NEC 03/02/2018 EDUARDO VILLEGAS MD Ot 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 03/02/2018 EDUARDO VILLEGAS MD Ot 788.3 0 UNSPECIFIED URINARY INCONTINENCE 03/02/2018 EDUARDO VILLEGAS MD Ot V72.6 3 PRE-PROCEDURAL LABORATORY EXAMINATION 03/02/2018 BAKARI OLVERA, EDUARDO A Ot V74.8 SCREEN-BACTERIAL DIS NEC 03/02/2018 BAIMA, KYLAH L COMMUNITY DEVELOPMENT MANAGER Ot 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 03/02/2018 BAIMA, KYLAH L COMMUNITY DEVELOPMENT MANAGER Ot 397.0 TRICUSPID VALVE DISEASE 03/02/2018 BAIMA, KYLAH L COMMUNITY DEVELOPMENT MANAGER Ot 401.9 HYPERTENSION NOS 03/02/2018 BAIMA, KYLAH L COMMUNITY DEVELOPMENT MANAGER Ot 414.00 CORON ATHEROSCLER NOS TYPE VESSEL, NATIV 03/02/2018 BAIMA, KYLAH L COMMUNITY DEVELOPMENT MANAGER Ot 250.00 DIAB MELVA WO COMPL, TYPE II OR UNSPEC TY 03/02/2018 BAIMA, KYLAH L COMMUNITY DEVELOPMENT MANAGER Ot 272.4 HYPERLIPIDEMIA NEC/NOS 03/02/2018 BAIMA, KYLAH L COMMUNITY DEVELOPMENT MANAGER Ot 305.1 TOBACCO USE DISORDER 03/02/2018 BAIMA, KYLAH L COMMUNITY DEVELOPMENT MANAGER Ot 401.9 HYPERTENSION NOS 03/02/2018 BAIMA, KYLAH L COMMUNITY DEVELOPMENT MANAGER Ot 414.00 CORON ATHEROSCLER NOS TYPE VESSEL, NATIV 03/02/2018 BAIMA, KYLAH L COMMUNITY DEVELOPMENT MANAGER Ot 424.90 ENDOCARDITIS NOS 03/02/2018 BAIMA, KYLAH L COMMUNITY DEVELOPMENT MANAGER Ot 4 96 CHR AIRWAY OBSTRUCT NEC 03/02/2018 PATRICIA MCDONALD MD Ot 996. 78 OTH COMP DUE TO OTH INTRNL ORTHPEDIC DEV 03/02/2018 PATRICIA MCDONALD MD Ot V72. 63 PRE-PROCEDURAL LABORATORY EXAMINATION 03/02/2018 PATRICIA MCDONALD MD Ot V72. 81 [id number] CARDIOVASCULAR 03/02/2018 PATRICIA MCDONALD MD Ot V74. 8 SCREEN-BACTERIAL DIS NEC 03/02/2018 BYRON BOSS MD Ot 272.4 HYPERLIPIDEMIA NEC/NOS 03/02/2018 BYRON BOSS MD Ot 338.29 OTHER CHRONIC PAIN 03/02/2018 BYRON BOSS MD Ot 401.9 HYPERTENSION NOS 03/02/2018 BAIMA, KYLAH L COMMUNITY DEVELOPMENT MANAGER Ot 414.00 CORON ATHEROSCLER NOS TYPE VESSEL, NATIV 03/02/2018 BAIMA, KYLAH L COMMUNITY DEVELOPMENT MANAGER Ot 429.3 CARDIOMEGALY 03/02/2018 ALVIN SALDANA MD Ot V72.84 EXAM PRE-OPERATIVE NOS 03/02/2018 BAIMA, KYLAH L COMMUNITY DEVELOPMENT MANAGER Ot 272.4 HYPERLIPIDEMIA NEC/NOS 03/02/2018 SHANA OLVERA, ALVIN Bruner Ot V72.84 EXAM PRE-OPERATIVE NOS 03/02/2018 KOFI HERNÁNDEZ, ALI FACP CCDS Ot 272.4 HYPERLIPIDEMIA NEC/NOS 03/02/2018 KFOI OLVERA FACC, ALI FACP CCDS Ot 414.00 CORON ATHEROSCLER NOS TYPE VESSEL, NATIV 03/02/2018 KOFI OLVERA FACC, ALI FACP CCDS Ot 414.8 CHR ISCHEMIC HRT DIS NEC 03/02/2018 KOFI HERNÁNDEZ, ALI FACP CCDS Ot 458.9 HYPOTENSION NOS 03/02/2018 KOFI HERNÁNDEZ, ALI FACP CCDS Ot 780.4 DIZZINESS AND GIDDINESS 03/02/2018 KYLAH CREWS COMMUNITY DEVELOPMENT MANAGER Ot E78.5 HYPERLIPIDEMIA, UNSPECIFIED 03/02/2018 KYLAH CREWS L COMMUNITY DEVELOPMENT MANAGER Ot I25.9 CHRONIC ISCHEMIC HEART DISEASE, UNSPECIF 03/02/2018 MADLHAMMADA Maxine COMMUNITY DEVELOPMENT MANAGER Ot 414.00 CORON ATHEROSCLER NOS TYPE VESSEL, NATIV 03/02/2018 MADLETELVINA L COMMUNITY DEVELOPMENT MANAGER Ot 780 .2 SYNCOPE AND COLLAPSE 03/02/2018 MADL ETELVINA L COMMUNITY DEVELOPMENT MANAGER Ot V45.82 PERCUTANEOUS TRANSLUM CORON ANGIOPLASTY 03/02/2018 KYLAH CREWS COMMUNITY DEVELOPMENT MANAGER Ot 272.4 HYPERLIPIDEMIA NEC/NOS 03/02/2018 KYLAH CREWS L COMMUNITY DEVELOPMENT MANAGER Ot 276.9 ELECTROLYT/FLUID DIS NEC 03/02/2018 KYLAH CREWS COMMUNITY DEVELOPMENT MANAGER Ot 401.9 HYPERTENSION NOS 03/02/2018 KYLAH CREWS L COMMUNITY DEVELOPMENT MANAGER Ot 414.00 CORON ATHEROSCLER NOS TYPE VESSEL, NATIV 03/02/2018 BILL CLEMENTE DO Ot 250.00 DIAB MELVA WO COMPL, TYPE II OR UNSPEC TY 03/02/2018 BILL CLEMENTE DO Ot 272.4 HYPERLIPIDEMIA NEC/NOS 03/02/2018 BILL CLEMENTE DO Ot 414.00 CORON ATHEROSCLER NOS TYPE VESSEL, NATIV 03/02/2018 BILL CLEMENTE DO Ot 724.5 BACKACHE NOS 03/02/2018 BILL CLEMENTE DO Ot 733.90 BONE CARTILAGE DIS NOS 03/02/2018 BILL CLEMENTE DO Ot 715.37 LOC OSTEOARTH NOS-ANKLE 03/02/2018 KOFI [...] FACP CCDS Ot 401.9 HYPERTENSION NOS 03/02/2018 OKFI OLVERA FACC, ALI FACP CCDS Ot 414.00 CORON ATHEROSCLER NOS TYPE VESSEL, NATIV 03/02/2018 KOFI OLVEAR FACC, ALI FACP CCDS Ot 447.72 ABDOMINAL AORTIC ECTASIA 03/02/2018 KOFI OLVERA FACC, ALI FACP CCDS Ot 458.9 HYPOTENSION NOS 03/02/2018 KOFI OLVERA FACC, ALI FACP CCDS Ot 496 CHR AIRWAY OBSTRUCT NEC 03/02/2018 KOFI OLVERA FACC, ALI FACP CCDS Ot 530.81 ESOPHAGEAL REFLUX 03/02/2018 KYLAH CREWS COMMUNITY DEVELOPMENT MANAGER Ot I71.4 ABDOMINAL AORTIC ANEURYSM, WITHOUT RUPTU 03/02/2018 AMELIABILL HAYES DO Ot 250.00 DIAB MELVA WO COMPL, TYPE II OR UNSPEC TY 03/02/2018 BRYN BILL PRAKASH Ot 959.7 LOWER LEG INJURY NOS 03/02/2018 BRYN BILL PRAKASH Ot E000.8 OTHER EXTERNAL CAUSE STATUS 03/02/2018 AMELIABILL HAYES DO Ot E928.9 ACCIDENT NOS 03/02/2018 BRYN BILL PRAKASH Ot N39.0 URINARY TRACT INFECTION, SITE NOT SPECIF 03/02/2018 KOFI LOVERA FACC, ALI FACP CCDS Ot E78.5 HYPERLIPIDEMIA, UNSPECIFIED 03/02/2018 KOFI OLVERA FACC, ALI FACP CCDS Ot I25.10 ATHSCL HEART DISEASE OF [place] CORONARY 03/02/2018 ADELFO W[place] COMMUNITY DEVELOPMENT MANAGER Ot I71.4 ABDOMINAL AORTIC ANEURYSM, WITHOUT RUPTU 03/02/2018 AMELIASAYDASEAN BILL PRAKASH Ot Z12.31 ENCNTR SCREEN MAMMOGRAM FOR MALIGNANT NE 03/02/2018 BILL CLEMENTE DO Ot R92.8 OTH ABN AND INCONCLUSIVE FINDINGS ON DX 03/02/2018 KOFI OLVERA FACC, ALI FACP CCDS Ot E11.9 TYPE 2 DIABETES MELLITUS WITHOUT COMPLIC 03/02/2018 KOFI OLVERA FACC, ALI FACP CCDS Ot I10 ESSENTIAL (PRIMARY) HYPERTENSION 03/02/2018 KOFI OLVERA FACC, ALI FACP CCDS Ot I25.10 ATHSCL HEART DISEASE OF [place] CORONARY 03/02/2018 KOFI OLVERA FACC, ALI FACP [...] CCDS Ot I25.10 ATHSCL HEART DISEASE OF [place] CORONARY 03/02/2018 KOFI OLVERA FACC, ALI FACP [...] CCDS Ot I25.10 ATHSCL HEART DISEASE OF [place] CORONARY 03/02/2018 KOFI OLVERA FACC, ALI FACP CCDS Ot I25.5 ISCHEMIC CARDIOMYOPATHY 03/02/2018 KOFI OLVERA FACC, ALI FACP CCDS Ot I73.9 PERIPHERAL VASCULAR DISEASE, UNSPECIFIED 03/02/2018 KOFI OLVERA FACC, ALI FACP CCDS Ot J43.8 OTHER EMPHYSEMA 03/02/2018 KOFI OLVERA FACC, ALI FACP CCDS Ot R06.02 SHORTNESS OF BREATH 03/02/2018 KOFI OLVERA FACC, ALI FACP CCDS Ot Z72.0 TOBACCO USE 03/02/2018 KYLAH CREWS COMMUNITY DEVELOPMENT MANAGER Ot I25.5 ISCHEMIC CARDIOMYOPATHY 03/02/2018 KOFI OLVERA FACC, ALI FACP CCDS Ot E11.9 TYPE 2 DIABETES MELLITUS WITHOUT COMPLIC 03/02/2018 KOFI OLVERA FACC, ALI FACP CCDS Ot E78.4 OTHER HYPERLIPIDEMIA 03/02/2018 KOFI OLVERA FACC, ALI FACP CCDS Ot I25.10 ATHSCL HEART DISEASE OF [place] CORONARY 03/02/2018 KOFI OLVERA FACC, ALI FACP CCDS Ot I25.5 ISCHEMIC CARDIOMYOPATHY 03/02/2018 KFOI OLVERA FACC, ALI FACP CCDS Ot I65.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 AND STENOSIS OF BILATERAL CALVERT 03/02/2018 KOFI OLVERA FACC, ALI FACP CCDS Ot I73.9 PERIPHERAL VASCULAR DISEASE, UNSPECIFIED 03/02/2018 KOFI OLVERA FAC, ALI FACP CCDS Ot R06.02 SHORTNESS OF BREATH 03/02/2018 KOFI OLVERA FACC, ALI FACP CCDS Ot Z72.0 TOBACCO USE 03/03/2018 LEONEL ORTIZ MD Ot E11.40 TYPE 2 DIABETES MELLITUS WITH DIABETIC N 03/03/2018 LEONEL ORTIZ MD, Ot E78.00 PURE HYPERCHOLESTEROLEMIA, UNSPECIFIED 03/03/2018 LEONEL ORTIZ MD, Ot F17.21 0 NICOTINE DEPENDENCE, CIGARETTES, UNCOMPL 03/03/2018 LEONEL ORTIZ MD, Ot F32.9 MAJOR DEPRESSIVE DISORDER, SINGLE EPISOD 03/03/2018 LEONEL ORTIZ MD, Ot I10 ESSENTIAL (PRIMARY) HYPERTENSION 03/03/2018 LEONEL ORTIZ MD, Ot K21.0 GASTRO-ESOPHAGEAL REFLUX DISEASE WITH ES 03/03/2018 LEONEL ORTIZ MD, Ot K22.2 ESOPHAGEAL OBSTRUCTION 03/03/2018 KIDO MD, TAKAAKI Ot K29.70 GASTRITIS, UNSPECIFIED, WITHOUT BLEEDING 03/03/2018 LEONEL ORTIZ MD Ot K44.9 DIAPHRAGMATIC HERNIA WITHOUT OBSTRUCTION 03/03/2018 LEONEL ORTIZ MD Ot Z79.89 9 OTHER SENIOR SUPPORT ANALYST (CURRENT) DRUG THERAPY 03/03/2018 LEONEL ORTIZ MD, Ot Z88.1 ALLERGY STATUS TO OTHER ANTIBIOTIC AGENT 03/03/2018 LEONEL ORTIZ MD Ot Z88.5 ALLERGY STATUS TO NARCOTIC AGENT STATUS 03/03/2018 LEONEL ORTIZ MD, Ot Z88.6 ALLERGY STATUS TO ANALGESIC AGENT STATUS 03/04/2018 LEONEL ORTIZ MD Ot E11.40 TYPE 2 DIABETES MELLITUS WITH DIABETIC N 03/04/2018 LEONEL ORTIZ MD Ot E78.00 PURE HYPERCHOLESTEROLEMIA, UNSPECIFIED 03/04/2018 LEONEL ORTIZ MD Ot F17.21 0 NICOTINE DEPENDENCE, CIGARETTES, UNCOMPL 03/04/2018 LEONEL ORTIZ [...] WITHOUT OBSTRUCTION 03/04/2018 LEONEL ORTIZ MD, Ot Z79.89 9 OTHER SNF (CURRENT) DRUG THERAPY 03/04/2018 LEONEL ORTIZ MD, [...] CCDS Ot I25.10 ATHSCL HEART DISEASE OF [place] CORONARY 03/09/2018 KOFI HERNÁNDEZC, ALI FACP CCDS Ot I25.5 ISCHEMIC CARDIOMYOPATHY 03/09/2018 KOFI HERNÁNDEZC, ALI FACP CCDS Ot I44.7 LEFT BUNDLE-BRANCH [...] OLVERA FACC, ALI FACP CCDS Ot Z79.82 SENIOR SUPPORT ANALYST (CURRENT) USE OF ASPIRIN 03/09/2018 KOFI OLVERA FACC, ALI FACP CCDS Ot Z79.84 SNF (CURRENT) USE OF ORAL HYPOGLYC 03/09/2018 KOFI OLVERA FACC, ALI FACP CCDS Ot Z79.899 OTHER SENIOR SUPPORT ANALYST (CURRENT) DRUG THERAPY 03/09/2018 KOFI OLVERA FACC, ALI FACP CCDS Ot Z95.5 PRESENCE OF CORONARY ANGIOPLASTY IMPLANT 03/10/2018 LEONEL ORTIZ MD Ot E11.40 TYPE 2 DIABETES MELLITUS WITH DIABETIC N 03/10/2018 LEONEL ORTIZ MD, Ot E78.00 PURE HYPERCHOLESTEROLEMIA, UNSPECIFIED 03/10/2018 LEONEL ORTIZ MD, Ot F17.21 0 NICOTINE DEPENDENCE, CIGARETTES, UNCOMPL 03/10/2018 LEONEL ORTIZ MD, Ot F32.9 MAJOR DEPRESSIVE DISORDER, SINGLE EPISOD 03/10/2018 KIDO MD, TAKAAKI Ot I10 ESSENTIAL (PRIMARY) HYPERTENSION 03/10/2018 LEONEL ORTIZ MD Ot K21.0 GASTRO-ESOPHAGEAL REFLUX DISEASE WITH ES 03/10/2018 LEONEL ORTIZ MD, Ot K22.2 ESOPHAGEAL OBSTRUCTION 03/10/2018 LEONEL ORTIZ MD, Ot K29.70 GASTRITIS, UNSPECIFIED, WITHOUT BLEEDING 03/10/2018 LEONEL ORTIZ MD, Ot K44.9 DIAPHRAGMATIC HERNIA WITHOUT OBSTRUCTION 03/10/2018 LEONEL ORTIZ MD, Ot Z79.89 9 OTHER SENIOR SUPPORT ANALYST (CURRENT) DRUG THERAPY 03/10/2018 LEONEL ORTIZ MD, Ot Z88.1 ALLERGY STATUS TO OTHER ANTIBIOTIC AGENT 03/10/2018 LEONEL ORTIZ MD, Ot Z88.5 ALLERGY STATUS TO NARCOTIC AGENT STATUS 03/10/2018 LEONEL ORTIZ MD, Ot Z88.6 ALLERGY STATUS TO ANALGESIC AGENT STATUS 03/10/2018 KOFI OLVERA FACC, BRADLY FACP CCDS [...] CCDS Ot I25.10 ATHSCL HEART DISEASE OF [place] CORONARY 03/10/2018 KOFI OLVERA FACC, ALI FACP [...] OLVERA FACC, ALI FACP CCDS Ot Z79.82 SNF (CURRENT) USE OF ASPIRIN 03/10/2018 KOFI OLVERA FACC, ALI FACP CCDS Ot Z79.84 SENIOR SUPPORT ANALYST (CURRENT) USE OF ORAL HYPOGLYC 03/10/2018 KOFI OLVERA FACC, BRADLY FACP CCDS Ot Z79.899 OTHER SENIOR SUPPORT ANALYST (CURRENT) DRUG THERAPY 03/10/2018 KOFI OLVERA FACC, ALI FACP CCDS Ot Z95.5 PRESENCE OF CORONARY ANGIOPLASTY IMPLANT 03/10/2018 KOFI OLVERA FACC, BRADLY FACP CCDS Ot E11.9 TYPE 2 DIABETES MELLITUS WITHOUT COMPLIC 03/10/2018 KOFI OLVERA FACC, ALI FACP CCDS Ot F17.210 NICOTINE DEPENDENCE, CIGARETTES, UNCOMPL 03/10/2018 KOFI OLVERA FACC, BRADLY FACP CCDS Ot F32.9 MAJOR DEPRESSIVE DISORDER, SINGLE EPISOD 03/10/2018 KOFI OLVERA FACC, ALI FACP CCDS Ot F41.9 ANXIETY DISORDER, UNSPECIFIED 03/10/2018 KOFI OLVERA FACC, ALI FACP CCDS Ot I25.10 ATHSCL HEART DISEASE OF [place] CORONARY 03/10/2018 KOFI OLVERA FACC, BRADLY FACP CCDS Ot I25.5 ISCHEMIC CARDIOMYOPATHY 03/10/2018 [...] R13.10 DYSPHAGIA, UNSPECIFIED 03/10/2018 KOFI OLVERA FACC, BRADLY HERNÁNDEZP CCDS Ot Z79.82 SNF (CURRENT) USE OF ASPIRIN 03/10/2018 KOFI OLVERA FACC, BRADLY FACP CCDS Ot Z79.84 SNF (CURRENT) USE OF ORAL HYPOGLYC 03/10/2018 KOFI OLVERA FACC, BRADLY FACP CCDS Ot Z79.899 OTHER SNF (CURRENT) DRUG THERAPY 03/10/2018 KOFI OLVERA FACC, BRADLY FACP CCDS Ot Z95.5 PRESENCE OF CORONARY ANGIOPLASTY IMPLANT 04/08/2018 EDUARDO VILLEGAS MD Ot 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 04/08/2018 EDUARDO VILLEGAS MD Ot 788.3 0 UNSPECIFIED URINARY INCONTINENCE 04/08/2018 EDUARDO VILLEGAS MD Ot V72.6 3 PRE-PROCEDURAL LABORATORY EXAMINATION 04/08/2018 EDUARDO VILLEGAS MD Ot V74.8 SCREEN-BACTERIAL DIS NEC 04/08/2018 EDUARDO VILLEGAS MD Ot 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 04/08/2018 EDUARDO VILLEGAS MD Ot 788.3 0 UNSPECIFIED URINARY INCONTINENCE 04/08/2018 EDUARDO VILLEGAS MD Ot V72.6 3 PRE-PROCEDURAL LABORATORY EXAMINATION 04/08/2018 EDUARDO VILLEGAS MD Ot V74.8 SCREEN-BACTERIAL DIS NEC 04/08/2018 ELEONORA KYLAH L COMMUNITY DEVELOPMENT MANAGER Ot 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 04/08/2018 ELEONORA KYLAH L COMMUNITY DEVELOPMENT MANAGER Ot 397.0 TRICUSPID VALVE DISEASE 04/08/2018 ELEONORA KYLAH L COMMUNITY DEVELOPMENT MANAGER Ot 401.9 HYPERTENSION NOS 04/08/2018 BAIMA, KYLAH L COMMUNITY DEVELOPMENT MANAGER Ot 414.00 CORON ATHEROSCLER NOS TYPE VESSEL, NATIV 04/08/2018 BAIMA, KYLAH L COMMUNITY DEVELOPMENT MANAGER Ot 250.00 DIAB MELVA WO COMPL, TYPE II OR UNSPEC TY 04/08/2018 BAIMA, KYLAH L COMMUNITY DEVELOPMENT MANAGER Ot 272.4 HYPERLIPIDEMIA NEC/NOS 04/08/2018 BAIMA, KYLAH L COMMUNITY DEVELOPMENT MANAGER Ot 305.1 TOBACCO USE DISORDER 04/08/2018 BAIMA, KYLAH L COMMUNITY DEVELOPMENT MANAGER Ot 401.9 HYPERTENSION NOS 04/08/2018 BAIMA, KYLAH L COMMUNITY DEVELOPMENT MANAGER Ot 414.00 CORON ATHEROSCLER NOS TYPE VESSEL, NATIV 04/08/2018 ELEONORA KYLAH L COMMUNITY DEVELOPMENT MANAGER Ot 424.90 ENDOCARDITIS NOS 04/08/2018 ELEONORA KYLAH L COMMUNITY DEVELOPMENT MANAGER Ot 4 96 CHR AIRWAY OBSTRUCT NEC 04/08/2018 PATRICIA MCDONALD MD Ot 996. 78 OTH COMP DUE TO OTH INTRNL ORTHPEDIC DEV 04/08/2018 PATRICIA MCDONALD MD Ot V72. 63 PRE-PROCEDURAL LABORATORY EXAMINATION 04/08/2018 PATRICIA MCDONALD MD Ot V72. 81 [id number] CARDIOVASCULAR 04/08/2018 PATRICIA MCDONALD MD Ot V74. 8 SCREEN-BACTERIAL DIS NEC 04/08/2018 BYRON BOSS MD Ot 272.4 HYPERLIPIDEMIA NEC/NOS 04/08/2018 BYRON BOSS MD Ot 338.29 OTHER CHRONIC PAIN 04/08/2018 BYRON BOSS MD Ot 401.9 HYPERTENSION NOS 04/08/2018 KYLAH CREWS L COMMUNITY DEVELOPMENT MANAGER Ot 414.00 CORON ATHEROSCLER NOS TYPE VESSEL, NATIV 04/08/2018 ELEONORA KYLAH L COMMUNITY DEVELOPMENT MANAGER Ot 429.3 CARDIOMEGALY 04/08/2018 ALVIN SALDANA MD Ot V72.84 EXAM PRE-OPERATIVE NOS 04/08/2018 KYLAH CREWS L COMMUNITY DEVELOPMENT MANAGER Ot 272.4 HYPERLIPIDEMIA NEC/NOS 04/08/2018 ALVIN SALDANA [...] CCDS Ot 780.4 DIZZINESS AND GIDDINESS 04/08/2018 ELEONORA KYLAH L COMMUNITY DEVELOPMENT MANAGER Ot E78.5 HYPERLIPIDEMIA, UNSPECIFIED 04/08/2018 ELEONORA KYLAH L COMMUNITY DEVELOPMENT MANAGER Ot I25.9 CHRONIC ISCHEMIC HEART DISEASE, UNSPECIF 04/08/2018 ETELVINA LEONARD L COMMUNITY DEVELOPMENT MANAGER Ot 414.00 CORON ATHEROSCLER NOS TYPE VESSEL, NATIV 04/08/2018 ETELVINA LEONARD COMMUNITY DEVELOPMENT MANAGER Ot 780 .2 SYNCOPE AND COLLAPSE 04/08/2018 ETELVINA LEONARD COMMUNITY DEVELOPMENT MANAGER Ot V45.82 PERCUTANEOUS TRANSLUM CORON ANGIOPLASTY 04/08/2018 KYLAH CREWS COMMUNITY DEVELOPMENT MANAGER Ot 272.4 HYPERLIPIDEMIA NEC/NOS 04/08/2018 KYLAH CREWS COMMUNITY DEVELOPMENT MANAGER Ot 276.9 ELECTROLYT/FLUID DIS NEC 04/08/2018 KYLAH CREWS L COMMUNITY DEVELOPMENT MANAGER Ot 401.9 HYPERTENSION NOS 04/08/2018 BAIKYLAH ABAD COMMUNITY DEVELOPMENT MANAGER Ot 414.00 CORON ATHEROSCLER NOS TYPE VESSEL, NATIV 04/08/2018 AMELIALENDER DO, BILL A Ot 250.00 DIAB MELVA WO COMPL, TYPE II OR UNSPEC TY 04/08/2018 AMELIABILL HAYES DO A Ot 272.4 HYPERLIPIDEMIA NEC/NOS 04/08/2018 AMELIALENDER DO, BILL Radha Ot 414.00 CORON ATHEROSCLER NOS TYPE VESSEL, NATIV 04/08/2018 AMELIABILL HAYES DO Ot 724.5 BACKACHE NOS 04/08/2018 AMELIALENSEAN BILL PRAKASH Ot 733.90 BONE CARTILAGE DIS NOS 04/08/2018 AMELIALENSEAN BILL PRAKASH A Ot 715.37 LOC OSTEOARTH [...] 401.9 HYPERTENSION NOS 04/08/2018 KOFI OLVERA FACC, ALI FACP CCDS Ot 414.00 CORON ATHEROSCLER NOS TYPE VESSEL, NATIV 04/08/2018 KOFI OLVERA FACC, ALI FACP CCDS Ot 447.72 ABDOMINAL AORTIC ECTASIA 04/08/2018 KOFI OLVERA FACC, ALI FACP CCDS Ot 458.9 HYPOTENSION NOS 04/08/2018 KOFI OLVERA FACC, ALI FACP CCDS Ot 496 CHR AIRWAY OBSTRUCT NEC 04/08/2018 KOFI OLVERA FACC, ALI FACP CCDS Ot 530.81 ESOPHAGEAL REFLUX 04/08/2018 KYLAH CREWS COMMUNITY DEVELOPMENT MANAGER Ot I71.4 ABDOMINAL AORTIC ANEURYSM, WITHOUT RUPTU 04/08/2018 BILL CLEMENTE DO Ot 250.00 DIAB MELVA WO COMPL, TYPE II OR UNSPEC TY 04/08/2018 BILL CLEMENTE DO Ot 959.7 LOWER LEG INJURY NOS 04/08/2018 BILL CLEMENTE DO Ot E000.8 OTHER EXTERNAL CAUSE STATUS 04/08/2018 BILL CLEMENTE DO Ot E928.9 ACCIDENT NOS 04/08/2018 BILL CLEMENTE DO Ot N39.0 URINARY TRACT INFECTION, SITE NOT SPECIF 04/08/2018 KOFI OLVERA FACC, BRADLY FACP CCDS Ot E78.5 HYPERLIPIDEMIA, UNSPECIFIED 04/08/2018 KOFI OLVERA FACC, ALI FACP CCDS Ot I25.10 ATHSCL HEART DISEASE OF [place] CORONARY 04/08/2018 W[place]ADELFO STAPLETON COMMUNITY DEVELOPMENT MANAGER Ot I71.4 ABDOMINAL AORTIC ANEURYSM, WITHOUT RUPTU 04/08/2018 BILL CLEMENTE DO Ot Z12.31 ENCNTR SCREEN MAMMOGRAM FOR MALIGNANT NE 04/08/2018 BILL CLEMENTE DO Ot R92.8 OTH ABN AND INCONCLUSIVE FINDINGS ON DX 04/08/2018 KOFI OLVERA FACC, BRADLY FACP CCDS Ot E11.9 TYPE 2 DIABETES MELLITUS WITHOUT COMPLIC 04/08/2018 KOFI OLVERA FACC, ALI FACP CCDS Ot I10 ESSENTIAL (PRIMARY) HYPERTENSION 04/08/2018 KOFI OLVERA FACC, BRADLY FACP CCDS Ot I25.10 ATHSCL HEART DISEASE OF [place] CORONARY 04/08/2018 KOFI OLVERA FACC, ALI FACP [...] CCDS Ot I25.10 ATHSCL HEART DISEASE OF [place] CORONARY 04/08/2018 KOFI OLVERA FACC, ALI FACP [...] CCDS Ot I25.10 ATHSCL HEART DISEASE OF [place] CORONARY 04/08/2018 KOFI OLVERA FACC, ALI FACP CCDS Ot I25.5 ISCHEMIC CARDIOMYOPATHY 04/08/2018 KOFI OLVERA FACC, ALI FACP CCDS Ot I73.9 PERIPHERAL VASCULAR DISEASE, UNSPECIFIED 04/08/2018 KOFI OLVERA FACC, ALI FACP CCDS Ot J43.8 OTHER EMPHYSEMA 04/08/2018 KOFI OLVERA FACC, ALI FACP CCDS Ot R06.02 SHORTNESS OF BREATH 04/08/2018 KOFI OLVERA FACC, ALI FACP CCDS Ot Z72.0 TOBACCO USE 04/08/2018 KYLAH CREWS L COMMUNITY DEVELOPMENT MANAGER Ot I25.5 ISCHEMIC CARDIOMYOPATHY 04/08/2018 KOFI OLVERA FACC, ALI FACP CCDS Ot E11.9 TYPE 2 DIABETES MELLITUS WITHOUT COMPLIC 04/08/2018 KOFI OLVERA FACC, ALI FACP CCDS Ot E78.4 OTHER HYPERLIPIDEMIA 04/08/2018 KOFI OLVERA FACC, ALI FACP CCDS Ot I25.10 ATHSCL HEART DISEASE OF [place] CORONARY 04/08/2018 KOFI OLVERA FACC, ALI FACP [...] CCDS Ot I25.10 ATHSCL HEART DISEASE OF [place] CORONARY 04/08/2018 KOFI OLVERA FACC, ALI FACP CCDS Ot I65.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 AND STENOSIS OF BILATERAL CALVERT 04/08/2018 KOFI OLVERA FACC, ALI FACP CCDS Ot I71.4 ABDOMINAL AORTIC ANEURYSM, WITHOUT RUPTU 04/08/2018 KOFI OLVERA FACC, ALI FACP CCDS Ot R07.89 OTHER CHEST PAIN 04/08/2018 KOFI OLVERA FACC, ALI FACP CCDS Ot R91.8 OTHER NONSPECIFIC ABNORMAL FINDING OF [place]ON[place] 04/08/2018 KOFI HERNÁNDEZC, ALI FACP CCDS Ot Z72.0 TOBACCO USE 04/08/2018 KOFI OLVERA FACC, ALI FACP CCDS Ot Z95.828 PRESENCE OF OTHER VASCULAR IMPLANTS AND 04/08/2018 KOFI HERNÁNDEZC, ALI FACP CCDS Ot E66.9 OBESITY, UNSPECIFIED 04/08/2018 KOFI OLVERA FACC, ALI FACP CCDS Ot I10 ESSENTIAL (PRIMARY) HYPERTENSION 04/08/2018 KOFI OLVERA FACC, ALI FACP CCDS Ot I25.10 ATHSCL HEART DISEASE OF [place] CORONARY 04/08/2018 KOFI OLVERA FACC, ALI FACP CCDS Ot I65.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 AND STENOSIS OF BILATERAL CALVERT 04/08/2018 KOFI OLVERA FACC, ALI FACP CCDS Ot I71.4 ABDOMINAL AORTIC ANEURYSM, WITHOUT RUPTU 04/08/2018 KOFI OLVERA FACC, ALI FACP CCDS Ot R07.89 OTHER CHEST PAIN 04/08/2018 KOFI HERNÁNDEZC, ALI FACP CCDS Ot R91.8 OTHER NONSPECIFIC [...] Ot I10 ESSENTIAL (PRIMARY) HYPERTENSION 04/08/2018 KOFI LOVERA FACC, ALI FACP CCDS Ot I25.10 ATHSCL HEART DISEASE OF [place] CORONARY 04/08/2018 KOFI HERNÁNDEZC, ALI FACP CCDS Ot I25.5 ISCHEMIC CARDIOMYOPATHY 04/08/2018 KOFI HERNÁNDEZC, ALI FACP CCDS Ot I73.9 PERIPHERAL VASCULAR DISEASE, UNSPECIFIED 04/08/2018 KOFI OLVERA FACC, ALI FACP CCDS Ot J43.8 OTHER EMPHYSEMA 04/08/2018 KOFI OLVERA FACC, ALI FACP CCDS Ot R06.02 SHORTNESS OF BREATH 04/08/2018 KOFI HERNÁNDEZ, ALI FACP CCDS Ot Z72.0 TOBACCO USE 04/23/2018 KOFI OLVERA FACC, ALI FACP CCDS Ot E66.9 OBESITY, UNSPECIFIED 04/23/2018 KOFI OLVERA FACC, ALI FACP CCDS Ot I10 ESSENTIAL (PRIMARY) HYPERTENSION 04/23/2018 KOFI HERNÁNDEZ, ALI FACP CCDS Ot I25.10 ATHSCL HEART DISEASE OF [place] CORONARY 04/23/2018 KOFI HERNÁNDEZ, ALI FACP CCDS Ot I65.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 AND STENOSIS OF BILATERAL CALVERT 04/23/2018 KOFI HERNÁNDEZC, ALI FACP CCDS Ot I71.4 ABDOMINAL AORTIC ANEURYSM, WITHOUT RUPTU 04/23/2018 KOFI OLVERA FACC, ALI FACP CCDS Ot R07.89 OTHER CHEST PAIN 04/23/2018 KOFI HERNÁNDEZC, ALI FACP CCDS Ot R91.8 OTHER NONSPECIFIC ABNORMAL FINDING OF [place] 04/23/2018 KOFI OLVERA FACC, ALI FACP CCDS Ot Z72.0 TOBACCO USE 04/23/2018 KOFI HERNÁNDEZC, ALI FACP CCDS Ot Z95.828 PRESENCE OF OTHER VASCULAR IMPLANTS AND 04/23/2018 EDUARDO VILLEGAS MD Ot 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 04/23/2018 EDUARDO VILLEGAS MD Ot 788.3 0 UNSPECIFIED URINARY INCONTINENCE 04/23/2018 EDUARDO VILLEGAS MD Ot V72.6 3 PRE-PROCEDURAL LABORATORY EXAMINATION 04/23/2018 EDUARDO VILLEGAS MD Ot V74.8 SCREEN-BACTERIAL DIS NEC 04/23/2018 EDUARDO VILLEGAS MD Ot 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 04/23/2018 EDUARDO VILLEGAS MD Ot 788.3 0 UNSPECIFIED URINARY INCONTINENCE 04/23/2018 EDUARDO VILLEGAS MD Ot V72.6 3 PRE-PROCEDURAL LABORATORY EXAMINATION 04/23/2018 EDUARDO VILLEGAS MD Ot V74.8 SCREEN-BACTERIAL DIS NEC 04/23/2018 BAIMA, KYLAH L COMMUNITY DEVELOPMENT MANAGER Ot 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 04/23/2018 BAIMA, KYLAH L COMMUNITY DEVELOPMENT MANAGER Ot 397.0 TRICUSPID VALVE DISEASE 04/23/2018 BAIMA, KYLAH L COMMUNITY DEVELOPMENT MANAGER Ot 401.9 HYPERTENSION NOS 04/23/2018 BAIMA, KYLAH L COMMUNITY DEVELOPMENT MANAGER Ot 414.00 CORON ATHEROSCLER NOS TYPE VESSEL, NATIV 04/23/2018 BAIMA, KYLAH L COMMUNITY DEVELOPMENT MANAGER Ot 250.00 DIAB MELVA WO COMPL, TYPE II OR UNSPEC TY 04/23/2018 BAIMA, KYLAH L COMMUNITY DEVELOPMENT MANAGER Ot 272.4 HYPERLIPIDEMIA NEC/NOS 04/23/2018 BAIMA, KYLAH L COMMUNITY DEVELOPMENT MANAGER Ot 305.1 TOBACCO USE DISORDER 04/23/2018 BAIMA, KYLAH L COMMUNITY DEVELOPMENT MANAGER Ot 401.9 HYPERTENSION NOS 04/23/2018 BAIMA, KYLAH L COMMUNITY DEVELOPMENT MANAGER Ot 414.00 CORON ATHEROSCLER NOS TYPE VESSEL, NATIV 04/23/2018 BAIMA, KYLAH L COMMUNITY DEVELOPMENT MANAGER Ot 424.90 ENDOCARDITIS NOS 04/23/2018 BAIMA, KYLAH L COMMUNITY DEVELOPMENT MANAGER Ot 4 96 CHR AIRWAY OBSTRUCT NEC 04/23/2018 PATRICIA MCDONALD MD Ot 996. 78 OTH COMP DUE TO OTH INTRNL ORTHPEDIC DEV 04/23/2018 PATRICIA MCDONALD MD Ot V72. 63 PRE-PROCEDURAL LABORATORY EXAMINATION 04/23/2018 PATRICIA MCDONALD MD Ot V72. 81 [id number] CARDIOVASCULAR 04/23/2018 TAMARA OLVERA, PATRICIA Goodman Ot V74. 8 SCREEN-BACTERIAL DIS NEC 04/23/2018 KARYN OLVERA, BYRON Bruner Ot 272.4 HYPERLIPIDEMIA NEC/NOS 04/23/2018 KARYN OLVERA, BYRON Burner Ot 338.29 OTHER CHRONIC PAIN 04/23/2018 KARYN OLVERA, BYRON Bruner Ot 401.9 HYPERTENSION NOS 04/23/2018 BAIMA, KYLAH L COMMUNITY DEVELOPMENT MANAGER Ot 414.00 CORON ATHEROSCLER NOS TYPE VESSEL, NATIV 04/23/2018 BAIMA, KYLAH L COMMUNITY DEVELOPMENT MANAGER Ot 429.3 CARDIOMEGALY 04/23/2018 SHANA OLVERA, ALVIN M Ot V72.84 EXAM PRE-OPERATIVE NOS 04/23/2018 BAIMA, KYLAH L COMMUNITY DEVELOPMENT MANAGER Ot 272.4 HYPERLIPIDEMIA NEC/NOS 04/23/2018 SHANA OLVERA, ALVIN M Ot V72.84 EXAM PRE-OPERATIVE NOS 04/23/2018 KOFI [...] Ot 780.4 DIZZINESS AND GIDDINESS 04/23/2018 ELEONORA KLYAH L COMMUNITY DEVELOPMENT MANAGER Ot E78.5 HYPERLIPIDEMIA, UNSPECIFIED 04/23/2018 BAIMA KYLAH L COMMUNITY DEVELOPMENT MANAGER Ot I25.9 CHRONIC ISCHEMIC HEART DISEASE, UNSPECIF 04/23/2018 MADL, ETELVINA L COMMUNITY DEVELOPMENT MANAGER Ot 414.00 CORON ATHEROSCLER NOS TYPE VESSEL, NATIV 04/23/2018 MADL, ETELVINA L COMMUNITY DEVELOPMENT MANAGER Ot 780 .2 SYNCOPE AND COLLAPSE 04/23/2018 MADL, ETELVINA L COMMUNITY DEVELOPMENT MANAGER Ot V45.82 PERCUTANEOUS TRANSLUM CORON ANGIOPLASTY 04/23/2018 BAIMA KYLAH L COMMUNITY DEVELOPMENT MANAGER Ot 272.4 HYPERLIPIDEMIA NEC/NOS 04/23/2018 BAIMA, KYLAH L COMMUNITY DEVELOPMENT MANAGER Ot 276.9 ELECTROLYT/FLUID DIS NEC 04/23/2018 BAIMA, KYLAH L COMMUNITY DEVELOPMENT MANAGER Ot 401.9 HYPERTENSION NOS 04/23/2018 PERLAKYLAH ABAD Maxine COMMUNITY DEVELOPMENT MANAGER Ot 414.00 CORON ATHEROSCLER NOS TYPE VESSEL, NATIV 04/23/2018 AMELIALENDER DO, BILL Garcia Ot 250.00 DIAB MELVA WO COMPL, TYPE II OR UNSPEC TY 04/23/2018 GELLENDER DO, BILL Garcia Ot 272.4 HYPERLIPIDEMIA NEC/NOS 04/23/2018 GELLENDER DO, BILL Garcia Ot 414.00 CORON ATHEROSCLER NOS TYPE VESSEL, NATIV 04/23/2018 AMELIALENDER DO, BILL Garcia Ot 724.5 BACKACHE NOS 04/23/2018 GELLENDER DO, BILL Garcia Ot 733.90 BONE CARTILAGE DIS NOS 04/23/2018 AMELIALENDER DO, BILL Garcia Ot 715.37 LOC OSTEOARTH NOS-ANKLE 04/23/2018 KOFI [...] Ot 530.81 ESOPHAGEAL REFLUX 04/23/2018 KYLAH CREWS COMMUNITY DEVELOPMENT MANAGER Ot I71.4 ABDOMINAL AORTIC ANEURYSM, WITHOUT RUPTU 04/23/2018 AMELIALENDER DO, BILL Garcia Ot 250.00 DIAB MELVA WO COMPL, TYPE II OR UNSPEC TY 04/23/2018 AMELIALENDER DO, BILL Garcia Ot 959.7 LOWER LEG INJURY NOS 04/23/2018 AMELIALENDER DO, BILL Garcia Ot E000.8 OTHER EXTERNAL CAUSE STATUS 04/23/2018 BILL CLEMENTE DO Ot E928.9 ACCIDENT NOS 04/23/2018 BILL CLEMENTE DO Ot N39.0 URINARY TRACT INFECTION, SITE NOT SPECIF 04/23/2018 KOFI OLVERA FACC, ALI FACP CCDS Ot E78.5 HYPERLIPIDEMIA, UNSPECIFIED 04/23/2018 KOFI OLVERA FACC, ALI FACP CCDS Ot I25.10 ATHSCL HEART DISEASE OF [place] CORONARY 04/23/2018 ADELFO [place] COMMUNITY DEVELOPMENT MANAGER Ot I71.4 ABDOMINAL AORTIC ANEURYSM, WITHOUT RUPTU [...] CCDS Ot I25.10 ATHSCL HEART DISEASE OF [place] CORONARY 04/23/2018 KOFI OLVERA FACC, ALI FACP [...] 04/23/2018 KOFI HERNÁNDEZC, ALI FACP CCDS Ot E11.9 TYPE 2 DIABETES MELLITUS WITHOUT COMPLIC 04/23/2018 KOFI OLVERA FACC, ALI FACP CCDS Ot I10 ESSENTIAL (PRIMARY) HYPERTENSION 04/23/2018 KOFI OLVERA FACC, ALI FACP CCDS Ot I25.10 ATHSCL HEART DISEASE OF [place] CORONARY 04/23/2018 KOFI OLVERA FACC, ALI FACP [...] CCDS Ot I25.10 ATHSCL HEART DISEASE OF [place] CORONARY 04/23/2018 KOFI OLVERA FACC, ALI FACP CCDS Ot I25.5 ISCHEMIC CARDIOMYOPATHY 04/23/2018 KOFI OLVERA FACC, ALI FACP CCDS Ot I73.9 PERIPHERAL VASCULAR DISEASE, UNSPECIFIED 04/23/2018 KOFI HERNÁNDEZC, ALI FACP CCDS Ot J43.8 OTHER EMPHYSEMA 04/23/2018 [facility]VERA [facility], ALI FACP CCDS Ot R06.02 SHORTNESS OF BREATH 04/23/2018 KOFI OLVERA [facility], ALI FACP CCDS Ot Z72.0 TOBACCO USE 04/23/2018 KYLAH CREWS COMMUNITY DEVELOPMENT MANAGER Ot I25.5 ISCHEMIC CARDIOMYOPATHY 04/23/2018 KOFI OLVERA [facility], ALI FACP CCDS Ot E11.9 TYPE 2 DIABETES MELLITUS WITHOUT COMPLIC 04/23/2018 KOFI HERNÁNDEZ, ALI FACP CCDS Ot E78.4 OTHER HYPERLIPIDEMIA 04/23/2018 KOFI OLVERA FAC, ALI FACP CCDS Ot I25.10 ATHSCL HEART DISEASE OF [place] CORONARY 04/23/2018 KOFI OLVERA FACC, ALI FACP [...] CCDS Ot I25.10 ATHSCL HEART DISEASE OF [place] CORONARY 04/23/2018 KOFI OLVERA FACC, ALI FACP CCDS Ot I65.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 AND STENOSIS OF BILATERAL CALVERT 04/23/2018 KOFI OLVERA FACC, ALI FACP CCDS Ot I71.4 ABDOMINAL AORTIC ANEURYSM, WITHOUT RUPTU 04/23/2018 KOFI OLVERA FACC, ALI FACP CCDS Ot R07.89 OTHER CHEST PAIN 04/23/2018 KOFI OLVERA FACC, ALI FACP CCDS Ot R91.8 OTHER NONSPECIFIC ABNORMAL FINDING OF EVONNE 04/23/2018 KOFI OLVERA FACC, ALI FACP CCDS Ot Z72.0 TOBACCO USE 04/23/2018 KOFI OLVERA FACC, ALI FACP CCDS Ot Z95.828 PRESENCE OF OTHER VASCULAR IMPLANTS AND 04/25/2018 JESSY PANDEY OTOLARYNGOLOGY TEACHER Ot R06.83 SNORING 04/25/2018 JESSY PANDEY OTOLARYNGOLOGY TEACHER Ot R09.02 HYPOXEMIA 04/28/2018 JESSY PANDEY OTOLARYNGOLOGY TEACHER Ot R06.83 SNORING 04/28/2018 JESSY PANDEY E OTOLARYNGOLOGY TEACHER Ot R09.02 HYPOXEMIA 05/14/2018 THOMPSON QURESHI OTOLARYNGOLOGY TEACHER Ot E11 .9 TYPE 2 DIABETES MELLITUS WITHOUT COMPLIC 05/14/2018 THOMPSON QURESHI APRN Ot E78.00 PURE HYPERCHOLESTEROLEMIA, UNSPECIFIED 05/14/2018 THOMPSON QURESHI OTOLARYNGOLOGY TEACHER Ot F32 .9 MAJOR DEPRESSIVE DISORDER, SINGLE EPISOD 05/14/2018 THOMPSON QURESHI OTOLARYNGOLOGY TEACHER Ot F41 .9 ANXIETY DISORDER, UNSPECIFIED 05/14/2018 THOMPSON QURESHI OTOLARYNGOLOGY TEACHER Ot G43.909 MIGRAINE, UNSP, NOT INTRACTABLE, WITHOUT 05/14/2018 THOMPSON QURESHI OTOLARYNGOLOGY TEACHER Ot I10 ESSENTIAL (PRIMARY) HYPERTENSION 05/14/2018 THOMPSON QURESHI OTOLARYNGOLOGY TEACHER Ot I25.10 ATHSCL HEART DISEASE OF [place] CORONARY 05/14/2018 THOMPSON QURESHI APRN Ot J43 .9 EMPHYSEMA, UNSPECIFIED 05/14/2018 THOMPSON QURESHI APRN Ot K21 .9 GASTRO-ESOPHAGEAL REFLUX DISEASE WITHOUT 05/14/2018 THOMPSON QUREHSI APRN Ot M25.571 PAIN IN RIGHT ANKLE AND JOINTS OF RIGHT 05/14/2018 THOMPSON QURESHI APRN Ot S96.911A STRAIN OF UNSP MSL/TND AT ANK/FT LEVEL, 05/14/2018 THOMPSON QURESHI APRN Ot W18.30XA FALL ON SAME LEVEL, UNSPECIFIED, INITIAL 05/14/2018 THOMPSON QURESHI APRN Ot Z79.82 SENIOR SUPPORT ANALYST (CURRENT) USE OF ASPIRIN 05/14/2018 THOMPSON QURESHI APRN Ot Z79.84 SENIOR SUPPORT ANALYST (CURRENT) USE OF ORAL HYPOGLYC 05/14/2018 THOMPSON QURESHI APRN Ot Z87.81 PERSONAL HISTORY OF (HEALED) TRAUMATIC F 05/14/2018 THOMPSON QURESHI APRN Ot Z88 .0 ALLERGY STATUS TO PENICILLIN 05/14/2018 THOMPSON QURESHI APRN Ot Z88 .5 ALLERGY STATUS TO NARCOTIC AGENT STATUS 05/14/2018 THOMPSON QURESHI APRN Ot Z88 .6 ALLERGY STATUS TO ANALGESIC AGENT STATUS 05/14/2018 THOMPSON QURESHI APRN Ot Z88 .8 ALLERGY STATUS TO OTH DRUG/MEDS/BIOL SUB 05/14/2018 THOMPSON QURESHI APRN Ot Z90.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 BOTH CERVIX AND UTER 05/14/2018 THOMPSON QURESHI APRN Ot Z95 .5 PRESENCE OF CORONARY ANGIOPLASTY IMPLANT 05/17/2018 THOMPSON QURESHI APRN Ot E11 .9 TYPE 2 DIABETES MELLITUS WITHOUT COMPLIC 05/17/2018 THOMPSON QURESHI APRN Ot E78.00 PURE HYPERCHOLESTEROLEMIA, UNSPECIFIED 05/17/2018 THOMPSON UQRESHI APRN Ot F32 .9 MAJOR DEPRESSIVE DISORDER, SINGLE EPISOD 05/17/2018 THOMPSON QURESHI APRN Ot F41 .9 ANXIETY DISORDER, UNSPECIFIED 05/17/2018 THOMPSON QURESHI APRN Ot G43.909 MIGRAINE, UNSP, NOT INTRACTABLE, WITHOUT 05/17/2018 THOMPSON QURESHI APRN Ot I10 ESSENTIAL (PRIMARY) HYPERTENSION 05/17/2018 THOMPSON QURESHI APRN Ot I25.10 ATHSCL HEART DISEASE OF [place] CORONARY 05/17/2018 THOMPSON QURESHI APRN Ot J43 .9 EMPHYSEMA, UNSPECIFIED 05/17/2018 THOMPSON QURESHI APRN Ot K21 .9 GASTRO-ESOPHAGEAL REFLUX DISEASE WITHOUT 05/17/2018 THOMPSON QURESHI APRN Ot M25.571 PAIN IN RIGHT ANKLE AND JOINTS OF RIGHT 05/17/2018 THOMPSON QURESHI APRN Ot S96.911A STRAIN OF UNSP MSL/TND AT ANK/FT LEVEL, 05/17/2018 THOMPSON QURESHI APRN Ot W18.30XA FALL ON SAME LEVEL, UNSPECIFIED, INITIAL 05/17/2018 THOMPSON QURESHI APRN Ot Z79.82 SNF (CURRENT) USE OF ASPIRIN 05/17/2018 THOMPSON QURESHI APRN Ot Z79.84 SENIOR SUPPORT ANALYST (CURRENT) USE OF ORAL HYPOGLYC 05/17/2018 THOMPSON QURESHI APRN Ot Z87.81 PERSONAL HISTORY OF (HEALED) TRAUMATIC F 05/17/2018 THOMPSON QURESHI APRN Ot Z88 .0 ALLERGY STATUS TO PENICILLIN 05/17/2018 THOMPSON QURESHI APRN Ot Z88 .5 ALLERGY STATUS TO NARCOTIC AGENT STATUS 05/17/2018 THOMPSON QURESHI APRN Ot Z88 .6 ALLERGY STATUS TO ANALGESIC AGENT STATUS 05/17/2018 THOMPSON QURESHI APRN Ot Z88 .8 ALLERGY STATUS TO OTH DRUG/MEDS/BIOL SUB 05/17/2018 THOMPSON QURESHI APRN Ot Z90.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 BOTH CERVIX AND UTER 05/17/2018 THOMPSON QURESHI APRN Ot Z95 .5 PRESENCE OF CORONARY ANGIOPLASTY IMPLANT 05/28/2018 JESSY [...] OF BREATH 07/23/2018 LEONEL ORTIZ MD Ot Z01.81 8 ENCOUNTER FOR OTHER PREPROCEDURAL EXAMIN 07/26/2018 LEONEL ORTIZ MD, Ot Z01.81 8 ENCOUNTER FOR OTHER PREPROCEDURAL EXAMIN 07/30/2018 KYLAH CREWS COMMUNITY DEVELOPMENT MANAGER Ot I25.5 ISCHEMIC CARDIOMYOPATHY 07/30/2018 KYLAH CREWS COMMUNITY DEVELOPMENT MANAGER Ot I25.5 ISCHEMIC CARDIOMYOPATHY 07/30/2018 JESSY PANDEY APRN Ot J44.9 CHRONIC OBSTRUCTIVE PULMONARY DISEASE, U 07/30/2018 LEONEL ORTIZ MD, Ot E11.40 TYPE 2 DIABETES MELLITUS WITH DIABETIC N 07/30/2018 LEONEL ORTIZ MD, Ot I10 ESSENTIAL (PRIMARY) HYPERTENSION 07/30/2018 LEONEL ORTIZ MD Ot I25.10 ATHSCL HEART DISEASE OF [place] CORONARY 07/30/2018 LEONEL ORTIZ MD, Ot J44.9 CHRONIC OBSTRUCTIVE PULMONARY DISEASE, U 07/30/2018 LEONEL ORTIZ MD, Ot J45.90 9 UNSPECIFIED ASTHMA, UNCOMPLICATED 07/30/2018 LEONEL ORTIZ MD Ot K21.9 GASTRO-ESOPHAGEAL REFLUX DISEASE WITHOUT 07/30/2018 LEONEL ORTIZ MD, Ot 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/O PERFORATION OR AB 07/30/2018 LEONEL ORTIZ MD Ot K62.5 HEMORRHAGE OF ANUS AND RECTUM 07/30/2018 LEONEL ORTIZ MD, Ot K64.0 FIRST DEGREE HEMORRHOIDS 07/30/2018 LEONEL ORTIZ MD Ot Z79.84 SNF (CURRENT) USE OF ORAL HYPOGLYC 07/30/2018 LEONEL ORTIZ MD, Ot Z80.0 FAMILY HISTORY OF MALIGNANT NEOPLASM OF 07/30/2018 LEONEL ORTIZ MD, Ot Z87.89 1 PERSONAL HISTORY OF NICOTINE DEPENDENCE 08/01/2018 JESSY PANDEY APRN Ot J44.9 CHRONIC OBSTRUCTIVE PULMONARY DISEASE, U 08/01/2018 JESSY PANDEY APRN Ot R06.02 SHORTNESS OF BREATH 08/04/2018 LEONEL ORTIZ MD Ot E11.40 TYPE 2 DIABETES MELLITUS WITH DIABETIC N 08/04/2018 LEONEL ORTIZ MD Ot I10 ESSENTIAL (PRIMARY) HYPERTENSION 08/04/2018 LEONEL ORTIZ MD Ot I25.10 ATHSCL HEART DISEASE OF [place] CORONARY 08/04/2018 LEONEL ORTIZ MD, Ot J44.9 CHRONIC OBSTRUCTIVE PULMONARY DISEASE, U 08/04/2018 LEONEL ORTIZ MD, Ot J45.90 9 UNSPECIFIED ASTHMA, UNCOMPLICATED 08/04/2018 LEONEL ORTIZ MD, Ot K21.9 GASTRO-ESOPHAGEAL REFLUX DISEASE WITHOUT 08/04/2018 LEONEL ORTIZ MD Ot 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/O PERFORATION OR AB 08/04/2018 LEONEL ORTIZ MD, Ot K62.5 HEMORRHAGE OF ANUS AND RECTUM 08/04/2018 LEONEL ORTIZ MD, Ot K64.0 FIRST DEGREE HEMORRHOIDS 08/04/2018 LEONEL ORTIZ MD, Ot Z79.84 SENIOR SUPPORT ANALYST (CURRENT) USE OF ORAL HYPOGLYC 08/04/2018 LEONEL ORTIZ MD, Ot Z80.0 FAMILY HISTORY OF MALIGNANT NEOPLASM OF 08/04/2018 LEONEL ORTIZ MD, Ot Z87.89 1 PERSONAL HISTORY OF NICOTINE DEPENDENCE 08/04/2018 JESSY PANDEY APRN Ot J44.9 CHRONIC OBSTRUCTIVE PULMONARY DISEASE, U 08/04/2018 JESSY PANDEY APRN Ot R06.02 SHORTNESS OF BREATH 08/05/2018 LEONEL ORTIZ MD Ot E11.40 TYPE 2 DIABETES MELLITUS WITH DIABETIC N 08/05/2018 LEONEL ORTIZ MD Ot I10 ESSENTIAL (PRIMARY) HYPERTENSION 08/05/2018 LEONEL ORTIZ MD, Ot I25.10 ATHSCL HEART DISEASE OF [place] CORONARY 08/05/2018 LEONEL ORTIZ MD, Ot J44.9 CHRONIC OBSTRUCTIVE PULMONARY DISEASE, U 08/05/2018 LEONEL ORTIZ MD, Ot J45.90 9 UNSPECIFIED ASTHMA, UNCOMPLICATED 08/05/2018 LEONEL ORTIZ MD Ot K21.9 GASTRO-ESOPHAGEAL REFLUX DISEASE WITHOUT 08/05/2018 LEONEL ORTIZ MD Ot 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/O PERFORATION OR AB 08/05/2018 LEONEL ORTIZ MD Ot K62.5 HEMORRHAGE OF ANUS AND RECTUM 08/05/2018 LEONEL ORTIZ MD, Ot K64.0 FIRST DEGREE HEMORRHOIDS 08/05/2018 LEONEL ORTIZ MD, Ot Z79.84 SNF (CURRENT) USE OF ORAL HYPOGLYC 08/05/2018 LEONEL ORTIZ MD, Ot Z80.0 FAMILY HISTORY OF MALIGNANT NEOPLASM OF 08/05/2018 LEONEL ORTIZ MD, Ot Z87.89 1 PERSONAL HISTORY OF NICOTINE DEPENDENCE 08/13/2018 LEONEL ORTIZ MD, Ot E11.40 TYPE 2 DIABETES MELLITUS WITH DIABETIC N 08/13/2018 LEONEL ORTIZ MD, Ot I10 ESSENTIAL (PRIMARY) HYPERTENSION 08/13/2018 LEONEL ORTIZ MD, Ot I25.10 ATHSCL HEART DISEASE OF [place] CORONARY 08/13/2018 LEONEL ORTIZ MD, Ot J44.9 CHRONIC OBSTRUCTIVE PULMONARY DISEASE, U 08/13/2018 LEONEL ORTIZ MD, Ot J45.90 9 UNSPECIFIED ASTHMA, UNCOMPLICATED 08/13/2018 LEONEL ORTIZ MD, Ot K21.9 GASTRO-ESOPHAGEAL REFLUX DISEASE WITHOUT 08/13/2018 LEONEL ORTIZ MD, Ot 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/O PERFORATION OR AB 08/13/2018 LEONEL ORTIZ MD, Ot K62.5 HEMORRHAGE OF ANUS AND RECTUM 08/13/2018 LEONEL ORTIZ MD, Ot K64.0 FIRST DEGREE HEMORRHOIDS 08/13/2018 LEONEL ORTIZ MD, Ot Z79.84 SNF (CURRENT) USE OF ORAL HYPOGLYC 08/13/2018 LEONEL ORTIZ MD, Ot Z80.0 FAMILY HISTORY OF MALIGNANT NEOPLASM OF 08/13/2018 LEONEL ORTIZ MD, Ot Z87.89 1 PERSONAL HISTORY OF NICOTINE DEPENDENCE 11/26/2018 KYLAH CREWS Ot I25.5 ISCHEMIC CARDIOMYOPATHY 11/26/2018 JESSY PANDEY APRN Ot J44.9 CHRONIC OBSTRUCTIVE PULMONARY DISEASE, U 11/26/2018 JESSY PANDEY APRN Ot J44.9 CHRONIC OBSTRUCTIVE PULMONARY DISEASE, U 11/26/2018 JESSY PANDEY APRN Ot R06.02 SHORTNESS OF BREATH 11/29/2018 SALGUERO DOLADONNA K Ot A08.4 VIRAL INTESTINAL INFECTION, UNSPECIFIED 11/29/2018 SALGUERO DOLADONNA Ot A41.9 SEPSIS, UNSPECIFIED ORGANISM 11/29/2018 LADONNA SALGUERO DO Ot B96.20 UNSP ESCHERICHIA COLI THE CAUSE OF DI 11/29/2018 LADONNA SALGUERO DO Ot E11.9 TYPE 2 DIABETES MELLITUS WITHOUT COMPLIC 11/29/2018 LADONNA SALGUERO DO K Ot E78.00 PURE HYPERCHOLESTEROLEMIA, UNSPECIFIED 11/29/2018 TERE SALGUERO DOA K Ot E86.0 DEHYDRATION 11/29/2018 LADONNA SALGUERO DO Ot F32.9 MAJOR DEPRESSIVE DISORDER, SINGLE EPISOD 11/29/2018 LADONNA SALGUERO DO Ot F41.9 ANXIETY DISORDER, UNSPECIFIED 11/29/2018 TERE SALGUERO DOA Adriana Ot I10 ESSENTIAL (PRIMARY) HYPERTENSION 11/29/2018 LADONNA SALGUERO DO Ot I25.10 ATHSCL HEART DISEASE OF [place] CORONARY 11/29/2018 LADONNA SALGUERO DO Ot J43.9 EMPHYSEMA, UNSPECIFIED 11/29/2018 LADONNA SALGUERO DO Ot J96.11 CHRONIC RESPIRATORY FAILURE WITH HYPOXIA 11/29/2018 LADONNA SALGUERO DO Ot N39.0 URINARY TRACT INFECTION, SITE NOT SPECIF 11/29/2018 LADONNA SALGUERO DO K Ot Z87.89 1 PERSONAL HISTORY OF NICOTINE DEPENDENCE 11/29/2018 LADONNA SALGUERO DO Ot Z88.0 ALLERGY STATUS TO PENICILLIN 11/29/2018 LADONNA SALGUERO DO Ot Z88.5 ALLERGY STATUS TO NARCOTIC AGENT STATUS 11/29/2018 LADONNA SALGUERO DO Ot Z88.6 ALLERGY STATUS TO ANALGESIC AGENT STATUS 11/29/2018 LADONNA SALGUERO DO Ot Z88.8 ALLERGY STATUS TO OTH DRUG/MEDS/BIOL SUB 11/29/2018 LADONNA SALGUERO DO K Ot Z89.51 1 ACQUIRED ABSENCE OF RIGHT LEG BELOW KNEE 11/29/2018 LADONNA SALGUERO DO Ot Z95.5 PRESENCE OF CORONARY ANGIOPLASTY IMPLANT 11/29/2018 TERE SALGUERO DOA K Ot Z99.81 DEPENDENCE ON SUPPLEMENTAL OXYGEN 12/01/2018 LADONNA SALGUERO DO K Ot A08.4 VIRAL INTESTINAL INFECTION, UNSPECIFIED 12/01/2018 LADONNA SALGUERO DO K Ot A41.9 SEPSIS, UNSPECIFIED ORGANISM 12/01/2018 LADONNA [...] DO Ot I25.10 ATHSCL HEART DISEASE OF [place] CORONARY 12/01/2018 LADONNA SALGUERO DO Ot J43.9 EMPHYSEMA, UNSPECIFIED 12/01/2018 LADONNA SALGUERO DO Ot J96.11 CHRONIC RESPIRATORY FAILURE WITH HYPOXIA 12/01/2018 LADONNA SALGUERO DO Ot N39.0 URINARY TRACT INFECTION, SITE NOT SPECIF 12/01/2018 LADONNA SALGUERO DO Ot Z79.84 SENIOR SUPPORT ANALYST (CURRENT) USE OF ORAL HYPOGLYC 12/01/2018 LADONNA SALGUERO DO Ot Z87.89 1 PERSONAL HISTORY OF NICOTINE DEPENDENCE 12/01/2018 LADONNA SALGUERO DO Ot Z88.0 ALLERGY STATUS TO PENICILLIN 12/01/2018 LADONNA SALGUERO DO Ot Z88.5 ALLERGY STATUS TO NARCOTIC AGENT STATUS 12/01/2018 LADONNA SALGUERO DO Ot Z88.6 ALLERGY STATUS TO ANALGESIC AGENT STATUS 12/01/2018 LADONNA SALGUERO DO Ot Z88.8 ALLERGY STATUS TO OTH DRUG/MEDS/BIOL SUB 12/01/2018 LADONNA SALGUERO DO Ot Z89.51 1 ACQUIRED ABSENCE OF RIGHT LEG BELOW KNEE 12/01/2018 LADONNA SALGUERO DO Ot Z95.5 PRESENCE OF CORONARY ANGIOPLASTY IMPLANT 12/01/2018 LADONNA SALGUERO DO Ot Z99.81 DEPENDENCE ON SUPPLEMENTAL OXYGEN 03/25/2019 KYLAH CREWS COMMUNITY DEVELOPMENT MANAGER Ot I25.5 ISCHEMIC CARDIOMYOPATHY 03/25/2019 JESSY PANDEY OTOLARYNGOLOGY TEACHER Ot J44.9 CHRONIC OBSTRUCTIVE PULMONARY DISEASE, U 03/25/2019 JESSY PANDEY OTOLARYNGOLOGY TEACHER Ot J44.9 CHRONIC OBSTRUCTIVE PULMONARY DISEASE, U 03/25/2019 JESSY PANDEY OTOLARYNGOLOGY TEACHER Ot R06.02 SHORTNESS OF BREATH 05/04/2019 KYLAH CREWS COMMUNITY DEVELOPMENT MANAGER Ot I25.5 ISCHEMIC CARDIOMYOPATHY 05/04/2019 JESSY PANDEY OTOLARYNGOLOGY TEACHER Ot J44.9 CHRONIC OBSTRUCTIVE PULMONARY DISEASE, U 05/04/2019 JESSY PANDEY OTOLARYNGOLOGY TEACHER Ot J44.9 CHRONIC OBSTRUCTIVE PULMONARY DISEASE, U 05/04/2019 JESSY PANDEY OTOLARYNGOLOGY TEACHER Ot R06.02 SHORTNESS OF BREATH 05/04/2019 VINNIE OLVERA, MARINA Garcia Ot Z89.5 11 ACQUIRED ABSENCE OF RIGHT LEG BELOW KNEE 05/18/2019 MARINA BIRMINGHAM MD Ot Z89.5 11 ACQUIRED ABSENCE OF RIGHT LEG BELOW KNEE 05/26/2019 KYLAH CREWS COMMUNITY DEVELOPMENT MANAGER Ot I25.5 ISCHEMIC CARDIOMYOPATHY 05/26/2019 JESSY PANDEY OTOLARYNGOLOGY TEACHER Ot J44.9 CHRONIC OBSTRUCTIVE PULMONARY DISEASE, U 05/26/2019 JESSY PANDEY OTOLARYNGOLOGY TEACHER Ot J44.9 CHRONIC OBSTRUCTIVE PULMONARY DISEASE, U 05/26/2019 JESSY PANDEY OTOLARYNGOLOGY TEACHER Ot R06.02 SHORTNESS OF BREATH 05/26/2019 VINNIE OLVERA, MARINA Garcia Ot Z89.5 11 ACQUIRED ABSENCE OF RIGHT LEG BELOW KNEE 05/27/2019 JESSY PANDEY OTOLARYNGOLOGY TEACHER Ot G47.10 HYPERSOMNIA, UNSPECIFIED 05/27/2019 JESSY PANDEY OTOLARYNGOLOGY TEACHER Ot G47.36 SLEEP RELATED HYPOVENTILATION IN CONDITI 05/27/2019 JESSY PANDEY OTOLARYNGOLOGY TEACHER Ot G47.50 PARASOMNIA, UNSPECIFIED 05/27/2019 JESSY PANDEY OTOLARYNGOLOGY TEACHER Ot J43.8 OTHER EMPHYSEMA 05/27/2019 JESSY PANDEY OTOLARYNGOLOGY TEACHER Ot R06.00 DYSPNEA, UNSPECIFIED 05/27/2019 JESSY PANDEY OTOLARYNGOLOGY TEACHER Ot R06.02 SHORTNESS OF BREATH 05/27/2019 JESSY PANDEY OTOLARYNGOLOGY TEACHER Ot R91.8 OTHER NONSPECIFIC ABNORMAL FINDING OF [place] 05/27/2019 JESSY PANDEY OTOLARYNGOLOGY TEACHER Ot Z72.0 TOBACCO USE 06/09/2019 JESSY PANDEY OTOLARYNGOLOGY TEACHER Ot G47.10 HYPERSOMNIA, UNSPECIFIED 06/09/2019 JESSY PANDEY OTOLARYNGOLOGY TEACHER Ot G47.36 SLEEP RELATED HYPOVENTILATION IN CONDITI 06/09/2019 JESSY PANDEY OTOLARYNGOLOGY TEACHER Ot G47.50 PARASOMNIA, UNSPECIFIED 06/09/2019 JESSY PANDEY OTOLARYNGOLOGY TEACHER Ot J43.8 OTHER EMPHYSEMA 06/09/2019 JESSY PANDEY OTOLARYNGOLOGY TEACHER Ot R06.00 DYSPNEA, UNSPECIFIED 06/09/2019 JESSY PANDEY OTOLARYNGOLOGY TEACHER Ot R06.02 SHORTNESS OF BREATH 06/09/2019 JESSY PANDEY OTOLARYNGOLOGY TEACHER Ot R91.8 OTHER NONSPECIFIC ABNORMAL FINDING OF [place] 06/09/2019 JESSY PANDEY OTOLARYNGOLOGY TEACHER Ot Z72.0 TOBACCO USE 06/15/2019 JSESY PANDEY OTOLARYNGOLOGY TEACHER Ot J44.9 CHRONIC OBSTRUCTIVE PULMONARY DISEASE, U 06/15/2019 JESSY PANDEY OTOLARYNGOLOGY TEACHER Ot R06.02 SHORTNESS OF BREATH 06/16/2019 QUE LEON MD Ot A41 .9 SEPSIS, UNSPECIFIED ORGANISM 06/16/2019 QUE LEON MD Ot D64 .9 ANEMIA, UNSPECIFIED 06/16/2019 QUE LEON MD Ot E11.628 TYPE 2 DIABETES MELLITUS WITH OTHER SKIN 06/16/2019 QUE LEON MD Ot E11 .9 TYPE 2 DIABETES MELLITUS WITHOUT COMPLIC 06/16/2019 QUE LEON MD Ot E78.00 PURE HYPERCHOLESTEROLEMIA, UNSPECIFIED 06/16/2019 QUE LEON MD Ot E86 .0 DEHYDRATION 06/16/2019 QUE LEON MD Ot E87 .2 ACIDOSIS 06/16/2019 QUE LEON MD Ot F32 .9 MAJOR DEPRESSIVE DISORDER, SINGLE EPISOD 06/16/2019 QUE LEON MD Ot F41 .9 ANXIETY DISORDER, UNSPECIFIED 06/16/2019 QUE LEON MD Ot G43.909 MIGRAINE, UNSP, NOT INTRACTABLE, WITHOUT 06/16/2019 QUE LEON MD Ot I11 .0 HYPERTENSIVE HEART DISEASE WITH HEART FA 06/16/2019 QUE LEON MD Ot I25.10 ATHSCL HEART DISEASE OF [place] CORONARY 06/16/2019 QUE LEON MD Ot I50 .9 HEART FAILURE, UNSPECIFIED 06/16/2019 QUE LEON MD Ot J18 .1 LOBAR PNEUMONIA, UNSPECIFIED ORGANISM 06/16/2019 QUE LEON MD Ot J44 .0 CHRONIC OBSTRUCTIVE PULMON DISEASE W ACU 06/16/2019 QUE LEON MD, Ot J44 .1 CHRONIC OBSTRUCTIVE PULMONARY DISEASE W 06/16/2019 QUE LEON MD Ot K21 .9 GASTRO-ESOPHAGEAL REFLUX DISEASE WITHOUT 06/16/2019 QUE LEON MD Ot M19.91 PRIMARY OSTEOARTHRITIS, UNSPECIFIED SITE 06/16/2019 QUE LEON MD, Ot M54 .9 DORSALGIA, UNSPECIFIED 06/16/2019 QUE LEON MD Ot N30.00 ACUTE CYSTITIS WITHOUT HEMATURIA 06/16/2019 QUE LEON MD Ot R19 .7 DIARRHEA, UNSPECIFIED 06/16/2019 QUE LEON MD Ot R65.20 SEVERE SEPSIS WITHOUT SEPTIC SHOCK 06/16/2019 QUE LEON MD Ot Z66 DO NOT RESUSCITATE 06/16/2019 QUE LEON MD Ot Z87.891 PERSONAL HISTORY OF NICOTINE DEPENDENCE 06/16/2019 QUE LEON MD Ot Z88 .0 ALLERGY STATUS TO PENICILLIN 06/16/2019 QUE LEON MD Ot Z95 .5 PRESENCE OF CORONARY ANGIOPLASTY IMPLANT 06/16/2019 QUE LEON MD Ot Z99.81 DEPENDENCE ON SUPPLEMENTAL OXYGEN 06/16/2019 KYLAH CREWS Ot I25.5 ISCHEMIC CARDIOMYOPATHY 06/16/2019 JESSY PANDEY APRN Ot J44.9 CHRONIC OBSTRUCTIVE PULMONARY DISEASE, U 06/16/2019 JESSY PANDEY APRN Ot J44.9 CHRONIC OBSTRUCTIVE PULMONARY DISEASE, U 06/16/2019 JESSY PANDEY APRN Ot R06.02 SHORTNESS OF BREATH 06/16/2019 VINNIE OLVERA, MARINA Garcia Ot Z89.5 11 ACQUIRED ABSENCE OF RIGHT LEG BELOW KNEE 06/16/2019 KATHERIN, JESSY E OTOLARYNGOLOGY TEACHER Ot G47.10 HYPERSOMNIA, UNSPECIFIED 06/16/2019 JESSY PANDEY OTOLARYNGOLOGY TEACHER Ot G47.36 SLEEP RELATED HYPOVENTILATION IN CONDITI 06/16/2019 JESSY PANDEY OTOLARYNGOLOGY TEACHER Ot G47.50 PARASOMNIA, UNSPECIFIED 06/16/2019 JESSY PANDEY OTOLARYNGOLOGY TEACHER Ot J43.8 OTHER EMPHYSEMA 06/16/2019 JESSY PANDEY OTOLARYNGOLOGY TEACHER Ot R06.00 DYSPNEA, UNSPECIFIED 06/16/2019 JESSY PANDEY OTOLARYNGOLOGY TEACHER Ot R06.02 SHORTNESS OF BREATH 06/16/2019 JESSY PANDEY OTOLARYNGOLOGY TEACHER Ot R91.8 OTHER NONSPECIFIC ABNORMAL FINDING OF [place] 06/16/2019 JESSY PANDEY OTOLARYNGOLOGY TEACHER Ot Z72.0 TOBACCO USE 06/16/2019 QUE LEON MD Ot A41 .9 SEPSIS, UNSPECIFIED ORGANISM 06/16/2019 QUE LEON MD Ot D64 .9 ANEMIA, UNSPECIFIED 06/16/2019 QUE LEON MD Ot E11.628 TYPE 2 DIABETES MELLITUS WITH OTHER SKIN 06/16/2019 QUE LEON MD Ot E11 .9 TYPE 2 DIABETES MELLITUS WITHOUT COMPLIC 06/16/2019 QUE LEON MD Ot E78.00 PURE HYPERCHOLESTEROLEMIA, UNSPECIFIED 06/16/2019 QUE LEON MD Ot E86 .0 DEHYDRATION 06/16/2019 QUE LEON MD Ot E87 .2 ACIDOSIS 06/16/2019 QUE LEON MD Ot F32 .9 MAJOR DEPRESSIVE DISORDER, SINGLE EPISOD 06/16/2019 QUE LEON MD Ot F41 .9 ANXIETY DISORDER, UNSPECIFIED 06/16/2019 QUE LEON MD Ot G43.909 MIGRAINE, UNSP, NOT INTRACTABLE, WITHOUT 06/16/2019 QUE LEON MD Ot I11 .0 HYPERTENSIVE HEART DISEASE WITH HEART FA 06/16/2019 QUE LEON MD Ot I25.10 ATHSCL HEART DISEASE OF [place] CORONARY 06/16/2019 QUE LEON MD Ot I50 .9 HEART FAILURE, UNSPECIFIED 06/16/2019 QUE LEON MD Ot J18 .1 LOBAR PNEUMONIA, UNSPECIFIED ORGANISM 06/16/2019 QUE LEON MD, Ot J44 .0 CHRONIC OBSTRUCTIVE PULMON DISEASE W ACU 06/16/2019 QUE LEON MD, Ot J44 .1 CHRONIC OBSTRUCTIVE PULMONARY DISEASE W 06/16/2019 QUE LEON MD, Ot K21 .9 GASTRO-ESOPHAGEAL REFLUX DISEASE WITHOUT 06/16/2019 QUE LEON MD Ot M19.91 PRIMARY OSTEOARTHRITIS, UNSPECIFIED SITE 06/16/2019 QUE LEON MD, Ot M54 .9 DORSALGIA, UNSPECIFIED 06/16/2019 QUE LEON MD Ot N30.00 ACUTE CYSTITIS WITHOUT HEMATURIA 06/16/2019 QUE LEON MD Ot R19 .7 DIARRHEA, UNSPECIFIED 06/16/2019 QUE LEON MD Ot R65.20 SEVERE SEPSIS WITHOUT SEPTIC SHOCK 06/16/2019 QUE LEON MD Ot Z66 DO NOT RESUSCITATE 06/16/2019 QUE LOEN MD Ot Z87.891 PERSONAL HISTORY OF NICOTINE DEPENDENCE 06/16/2019 QUE LEON MD Ot Z88 .0 ALLERGY STATUS TO PENICILLIN 06/16/2019 QUE LEON MD Ot Z95 .5 PRESENCE OF CORONARY ANGIOPLASTY IMPLANT 06/16/2019 QUE LEON MD Ot Z99.81 DEPENDENCE ON SUPPLEMENTAL OXYGEN 06/16/2019 QUE LEON MD Ot A41 .9 SEPSIS, UNSPECIFIED ORGANISM 06/16/2019 QUE LEON MD, Ot D64 .9 ANEMIA, UNSPECIFIED 06/16/2019 QUE LEON MD Ot E11.628 TYPE 2 DIABETES MELLITUS WITH OTHER SKIN 06/16/2019 QUE LEON MD Ot E11 .9 TYPE 2 DIABETES MELLITUS WITHOUT COMPLIC 06/16/2019 QUE LEON MD Ot E78.00 PURE HYPERCHOLESTEROLEMIA, UNSPECIFIED 06/16/2019 QUE LEON MD Ot E86 .0 DEHYDRATION 06/16/2019 QUE LEON MD Ot E87 .2 ACIDOSIS 06/16/2019 QUE LEON MD Ot F32 .9 MAJOR DEPRESSIVE DISORDER, SINGLE EPISOD 06/16/2019 QUE LEON MD Ot F41 .9 ANXIETY DISORDER, UNSPECIFIED 06/16/2019 QUE LEON MD, Ot G43.909 MIGRAINE, UNSP, NOT INTRACTABLE, WITHOUT 06/16/2019 QUE LEON MD Ot I11 .0 HYPERTENSIVE HEART DISEASE WITH HEART FA 06/16/2019 QUE LEON MD, Ot I25.10 ATHSCL HEART DISEASE OF [place] CORONARY 06/16/2019 QUE LENO MD Ot I50 .9 HEART FAILURE, UNSPECIFIED 06/16/2019 QUE LEON MD, Ot J18 .1 LOBAR PNEUMONIA, UNSPECIFIED ORGANISM 06/16/2019 QUE LEON MD, Ot J44 .0 CHRONIC OBSTRUCTIVE PULMON DISEASE W ACU 06/16/2019 QUE LEON MD, Ot J44 .1 CHRONIC OBSTRUCTIVE PULMONARY DISEASE W 06/16/2019 QUE LEON MD, Ot K21 .9 GASTRO-ESOPHAGEAL REFLUX DISEASE WITHOUT 06/16/2019 QUE LEON MD Ot M19.91 PRIMARY OSTEOARTHRITIS, UNSPECIFIED SITE 06/16/2019 QUE LEON MD Ot M54 .9 DORSALGIA, UNSPECIFIED 06/16/2019 QUE LEON MD Ot N30.00 ACUTE CYSTITIS WITHOUT HEMATURIA 06/16/2019 QUE LEON MD Ot R19 .7 DIARRHEA, UNSPECIFIED 06/16/2019 QUE LEON MD Ot R65.20 SEVERE SEPSIS WITHOUT SEPTIC SHOCK 06/16/2019 QUE LEON MD Ot Z66 DO NOT RESUSCITATE 06/16/2019 QUE LEON MD, Ot Z87.891 PERSONAL HISTORY OF NICOTINE DEPENDENCE 06/16/2019 QUE LEON MD Ot Z88 .0 ALLERGY STATUS TO PENICILLIN 06/16/2019 QUE LEON MD Ot Z95 .5 PRESENCE OF CORONARY ANGIOPLASTY IMPLANT 06/16/2019 QUE LEON MD Ot Z99.81 DEPENDENCE ON SUPPLEMENTAL OXYGEN 06/17/2019 MARINA BIRMINGHAM MD Ot Z89.5 11 ACQUIRED ABSENCE OF RIGHT LEG BELOW KNEE 06/20/2019 QUE LEON MD Ot A41 .9 SEPSIS, UNSPECIFIED ORGANISM 06/20/2019 QUE LEON MD Ot D64 .9 ANEMIA, UNSPECIFIED 06/20/2019 QUE LEON MD, Ot E11.628 TYPE 2 DIABETES MELLITUS WITH OTHER SKIN 06/20/2019 QUE LEON MD, Ot E11 .9 TYPE 2 DIABETES MELLITUS WITHOUT COMPLIC 06/20/2019 QUE LEON MD, Ot E78.00 PURE HYPERCHOLESTEROLEMIA, UNSPECIFIED 06/20/2019 QUE LEON MD Ot E86 .0 DEHYDRATION 06/20/2019 QUE LEON MD, Ot E87 .2 ACIDOSIS 06/20/2019 QUE LEON MD, Ot F32 .9 MAJOR DEPRESSIVE DISORDER, SINGLE EPISOD 06/20/2019 QUE LEON MD, Ot F41 .9 ANXIETY DISORDER, UNSPECIFIED 06/20/2019 QUE LEON MD, Ot G43.909 MIGRAINE, UNSP, NOT INTRACTABLE, WITHOUT 06/20/2019 QUE LEON MD, Ot I11 .0 HYPERTENSIVE HEART DISEASE WITH HEART FA 06/20/2019 QUE LEON MD, Ot I25.10 ATHSCL HEART DISEASE OF [place] CORONARY 06/20/2019 QUE LEON MD Ot I50 .9 HEART FAILURE, UNSPECIFIED 06/20/2019 QUE LEON MD, Ot J18 .1 LOBAR PNEUMONIA, UNSPECIFIED ORGANISM 06/20/2019 QUE LEON MD, Ot J44 .0 CHRONIC OBSTRUCTIVE PULMON DISEASE W ACU 06/20/2019 QUE LEON MD, Ot J44 .1 CHRONIC OBSTRUCTIVE PULMONARY DISEASE W 06/20/2019 QUE LEON MD, Ot K21 .9 GASTRO-ESOPHAGEAL REFLUX DISEASE WITHOUT 06/20/2019 QUE LEON MD, Ot M19.91 PRIMARY OSTEOARTHRITIS, UNSPECIFIED SITE 06/20/2019 QUE LEON MD, Ot M54 .9 DORSALGIA, UNSPECIFIED 06/20/2019 QUE LEON MD, Ot N30.00 ACUTE CYSTITIS WITHOUT HEMATURIA 06/20/2019 QUE LEON MD, Ot R19 .7 DIARRHEA, UNSPECIFIED 06/20/2019 QUE LEON MD, Ot R65.20 SEVERE SEPSIS WITHOUT SEPTIC SHOCK 06/20/2019 QUE LEON MD Ot Z66 DO NOT RESUSCITATE 06/20/2019 QUE LEON MD, Ot Z87.891 PERSONAL HISTORY OF NICOTINE DEPENDENCE 06/20/2019 QUE LEON MD, Ot Z88 .0 ALLERGY STATUS TO PENICILLIN 06/20/2019 QUE LEON MD, Ot Z95 .5 PRESENCE OF CORONARY ANGIOPLASTY IMPLANT 06/20/2019 QUE LEON MD, Ot Z99.81 DEPENDENCE ON SUPPLEMENTAL OXYGEN 06/21/2019 QUE LEON MD, Ot A41 .9 SEPSIS, UNSPECIFIED ORGANISM 06/21/2019 QUE LEON MD, Ot D64 .9 ANEMIA, UNSPECIFIED 06/21/2019 QUE LEON MD, Ot E11.628 TYPE 2 DIABETES MELLITUS WITH OTHER SKIN 06/21/2019 QUE LEON MD, Ot E11 .9 TYPE 2 DIABETES MELLITUS WITHOUT COMPLIC 06/21/2019 QUE LEON MD Ot E78.00 PURE HYPERCHOLESTEROLEMIA, UNSPECIFIED 06/21/2019 QUE LEON MD Ot E86 .0 DEHYDRATION 06/21/2019 QUE LEON MD Ot E87 .2 ACIDOSIS 06/21/2019 QUE LEON MD Ot F32 .9 MAJOR DEPRESSIVE DISORDER, SINGLE EPISOD 06/21/2019 QUE LEON MD, Ot F41 .9 ANXIETY DISORDER, UNSPECIFIED 06/21/2019 QUE LEON MD, Ot G43.909 MIGRAINE, UNSP, NOT INTRACTABLE, WITHOUT 06/21/2019 QUE LEON MD Ot I11 .0 HYPERTENSIVE HEART DISEASE WITH HEART FA 06/21/2019 QUE LEON MD, Ot I25.10 ATHSCL HEART DISEASE OF [place] CORONARY 06/21/2019 QUE LEON MD Ot I50 .9 HEART FAILURE, UNSPECIFIED 06/21/2019 QUE LEON MD, Ot J18 .1 LOBAR PNEUMONIA, UNSPECIFIED ORGANISM 06/21/2019 QUE LEON MD, Ot J44 .0 CHRONIC OBSTRUCTIVE PULMON DISEASE W ACU 06/21/2019 QUE LEON MD, Ot J44 .1 CHRONIC OBSTRUCTIVE PULMONARY DISEASE W 06/21/2019 QUE LEON MD Ot K21 .9 GASTRO-ESOPHAGEAL REFLUX DISEASE WITHOUT 06/21/2019 QUE LEON MD Ot M19.91 PRIMARY OSTEOARTHRITIS, UNSPECIFIED SITE 06/21/2019 QUE LEON MD, Ot M54 .9 DORSALGIA, UNSPECIFIED 06/21/2019 QUE LEON MD Ot N30.00 ACUTE CYSTITIS WITHOUT HEMATURIA 06/21/2019 QUE LEON MD Ot R19 .7 DIARRHEA, UNSPECIFIED 06/21/2019 QUE LEON MD Ot R65.20 SEVERE SEPSIS WITHOUT SEPTIC SHOCK 06/21/2019 QUE LEON MD Ot Z66 DO NOT RESUSCITATE 06/21/2019 QUE LEON MD, Ot Z87.891 PERSONAL HISTORY OF NICOTINE DEPENDENCE 06/21/2019 QUE LEON MD, Ot Z88 .0 ALLERGY STATUS TO PENICILLIN 06/21/2019 QUE LEON MD, Ot Z95 .5 PRESENCE OF CORONARY ANGIOPLASTY IMPLANT 06/21/2019 QUE LEON MD Ot Z99.81 DEPENDENCE ON SUPPLEMENTAL OXYGEN 06/22/2019 QUE LEON MD Ot A41 .9 SEPSIS, UNSPECIFIED ORGANISM 06/22/2019 QUE LEON MD Ot D64 .9 ANEMIA, UNSPECIFIED 06/22/2019 QUE LEON MD Ot E11.628 TYPE 2 DIABETES MELLITUS WITH OTHER SKIN 06/22/2019 QUE LEON MD Ot E11 .9 TYPE 2 DIABETES MELLITUS WITHOUT COMPLIC 06/22/2019 QUE LEON MD Ot E78.00 PURE HYPERCHOLESTEROLEMIA, UNSPECIFIED 06/22/2019 QUE LEON MD Ot E86 .0 DEHYDRATION 06/22/2019 QUE LEON MD Ot E87 .2 ACIDOSIS 06/22/2019 QUE LEON MD Ot F32 .9 MAJOR DEPRESSIVE DISORDER, SINGLE EPISOD 06/22/2019 QUE LEON MD Ot F41 .9 ANXIETY DISORDER, UNSPECIFIED 06/22/2019 QUE LEON MD Ot G43.909 MIGRAINE, UNSP, NOT INTRACTABLE, WITHOUT 06/22/2019 QUE LEON MD Ot I11 .0 HYPERTENSIVE HEART DISEASE WITH HEART FA 06/22/2019 QUE LEON MD Ot I25.10 ATHSCL HEART DISEASE OF [place] CORONARY 06/22/2019 QUE LEON MD Ot I50 .9 HEART FAILURE, UNSPECIFIED 06/22/2019 QUE LEON MD, Ot J18 .1 LOBAR PNEUMONIA, UNSPECIFIED ORGANISM 06/22/2019 QUE LEON MD, Ot J44 .0 CHRONIC OBSTRUCTIVE PULMON DISEASE W ACU 06/22/2019 QUE LEON MD, Ot J44 .1 CHRONIC OBSTRUCTIVE PULMONARY DISEASE W 06/22/2019 QUE LEON MD, Ot K21 .9 GASTRO-ESOPHAGEAL REFLUX DISEASE WITHOUT 06/22/2019 QUE LEON MD, Ot M19.91 PRIMARY OSTEOARTHRITIS, UNSPECIFIED SITE 06/22/2019 QUE LEON MD, Ot M54 .9 DORSALGIA, UNSPECIFIED 06/22/2019 QUE LEON MD, Ot N30.00 ACUTE CYSTITIS WITHOUT HEMATURIA 06/22/2019 QUE LEON MD, Ot R19 .7 DIARRHEA, UNSPECIFIED 06/22/2019 QUE LEON MD, Ot R65.20 SEVERE SEPSIS WITHOUT SEPTIC SHOCK 06/22/2019 QUE LEON MD, Ot Z66 DO NOT RESUSCITATE 06/22/2019 QUE LEON MD, Ot Z87.891 PERSONAL HISTORY OF NICOTINE DEPENDENCE 06/22/2019 QUE LEON MD, Ot Z88 .0 ALLERGY STATUS TO PENICILLIN 06/22/2019 QUE LEON MD, Ot Z95 .5 PRESENCE OF CORONARY ANGIOPLASTY IMPLANT 06/22/2019 QUE LEON MD, Ot Z99.81 DEPENDENCE ON SUPPLEMENTAL OXYGEN 06/23/2019 QUE LEON MD, Ot A41 .9 SEPSIS, UNSPECIFIED ORGANISM 06/23/2019 QUE LEON MD, Ot B96.20 UNSP ESCHERICHIA COLI THE CAUSE OF DI 06/23/2019 QUE LEON MD, Ot D63 .8 ANEMIA IN OTHER CHRONIC DISEASES CLASSIF 06/23/2019 QUE LEON MD, Ot D64 .9 ANEMIA, UNSPECIFIED 06/23/2019 QUE LEON MD, Ot E11.628 TYPE 2 DIABETES MELLITUS WITH OTHER SKIN 06/23/2019 QUE LEON MD, Ot E11 .9 TYPE 2 DIABETES MELLITUS WITHOUT COMPLIC 06/23/2019 QUE LEON MD, Ot E78.00 PURE HYPERCHOLESTEROLEMIA, UNSPECIFIED 06/23/2019 QUE LEON MD Ot E86 .0 DEHYDRATION 06/23/2019 QUE LEON MD Ot E87 .2 ACIDOSIS 06/23/2019 QUE LEON MD, Ot F32 .9 MAJOR DEPRESSIVE DISORDER, SINGLE EPISOD 06/23/2019 QUE LEON MD Ot F41 .9 ANXIETY DISORDER, UNSPECIFIED 06/23/2019 QUE LEON MD Ot G43.909 MIGRAINE, UNSP, NOT INTRACTABLE, WITHOUT 06/23/2019 QUE LEON MD Ot I11 .0 HYPERTENSIVE HEART DISEASE WITH HEART FA 06/23/2019 QUE LEON MD, Ot I25.10 ATHSCL HEART DISEASE OF [place] CORONARY 06/23/2019 QUE LEON MD, Ot I50 .9 HEART FAILURE, UNSPECIFIED 06/23/2019 QUE LEON MD, Ot J18 .1 LOBAR PNEUMONIA, UNSPECIFIED ORGANISM 06/23/2019 QUE LEON MD, Ot J44 .0 CHRONIC OBSTRUCTIVE PULMON DISEASE W ACU 06/23/2019 QUE LEON MD, Ot J44 .1 CHRONIC OBSTRUCTIVE PULMONARY DISEASE W 06/23/2019 QUE LEON MD, Ot J98.11 ATELECTASIS 06/23/2019 QUE LEON MD, Ot K21 .9 GASTRO-ESOPHAGEAL REFLUX DISEASE WITHOUT 06/23/2019 QUE LEON MD Ot M19.91 PRIMARY OSTEOARTHRITIS, UNSPECIFIED SITE 06/23/2019 QUE LEON MD, Ot M54 .9 DORSALGIA, UNSPECIFIED 06/23/2019 QUE LEON MD Ot N30.00 ACUTE CYSTITIS WITHOUT HEMATURIA 06/23/2019 QUE LEON MD Ot R06.03 ACUTE RESPIRATORY DISTRESS 06/23/2019 QUE LEON MD Ot R19 .7 DIARRHEA, UNSPECIFIED 06/23/2019 QUE LEON MD Ot R65.20 SEVERE SEPSIS WITHOUT SEPTIC SHOCK 06/23/2019 QUE LEON MD, Ot Z16.12 EXTENDED SPECTRUM BETA LACTAMASE (ESBL) 06/23/2019 QUE LEON MD Ot Z66 DO NOT RESUSCITATE 06/23/2019 QUE LEON MD, Ot Z87.891 PERSONAL HISTORY OF NICOTINE DEPENDENCE 06/23/2019 QUE LEON MD, Ot Z88 .0 ALLERGY STATUS TO PENICILLIN 06/23/2019 QUE LEON MD, Ot Z89.512 ACQUIRED ABSENCE OF LEFT LEG BELOW KNEE 06/23/2019 QUE LEON MD, Ot Z95 .5 PRESENCE OF CORONARY ANGIOPLASTY IMPLANT 06/23/2019 QUE LEON MD, Ot Z99.81 DEPENDENCE ON SUPPLEMENTAL OXYGEN 06/24/2019 MARLA EVERETT MD Ot E11.9 TYPE 2 DIABETES MELLITUS WITHOUT COMPLIC 06/24/2019 MARLA EVERETT MD Ot F17.210 NICOTINE DEPENDENCE, CIGARETTES, UNCOMPL 06/24/2019 MARLA EVERETT MD Ot F32.9 MAJOR DEPRESSIVE DISORDER, SINGLE EPISOD 06/24/2019 MARLA EVERETT MD, Ot F41.9 ANXIETY DISORDER, UNSPECIFIED 06/24/2019 MARLA EVERETT MD Ot G43.909 MIGRAINE, UNSP, NOT INTRACTABLE, WITHOUT 06/24/2019 MARLA EVERETT MD Ot I10 ESSENTIAL (PRIMARY) HYPERTENSION 06/24/2019 MARLA EVERETT MD Ot I25.2 OLD MYOCARDIAL INFARCTION 06/24/2019 MARLA EVERETT MD Ot J43.9 EMPHYSEMA, UNSPECIFIED 06/24/2019 MARLA EVERETT MD Ot J45.909 UNSPECIFIED ASTHMA, UNCOMPLICATED 06/24/2019 MARLA EVERETT MD Ot K21.9 GASTRO-ESOPHAGEAL REFLUX DISEASE WITHOUT 06/24/2019 MARLA EVERETT MD Ot R10.32 LEFT LOWER QUADRANT PAIN 06/24/2019 MARLA EVERETT MD Ot R11.2 NAUSEA WITH VOMITING, UNSPECIFIED 06/24/2019 MARLA EVERETT MD Ot R19.7 DIARRHEA, UNSPECIFIED 06/24/2019 MARLA EVERETT MD Ot R53.1 WEAKNESS 06/24/2019 MARLA EVERETT MD Ot Z79.84 SNF (CURRENT) USE OF ORAL HYPOGLYC 06/24/2019 MARLA EVERETT MD Ot Z82.49 FAMILY HX OF ISCHEM HEART DIS AND OTH DI 06/24/2019 KARLOS OLVERA, MARLA Ackerman Ot Z88.0 ALLERGY STATUS TO PENICILLIN 06/24/2019 KARLOS OLVERA, MARLA Ackerman Ot Z88.5 ALLERGY STATUS TO NARCOTIC AGENT STATUS 06/24/2019 MARLA EVERETT MD Ot Z88.6 ALLERGY STATUS TO ANALGESIC AGENT STATUS 06/24/2019 MARLA EVERETT MD, Ot Z88.8 ALLERGY STATUS TO OTH DRUG/MEDS/BIOL SUB 06/24/2019 MARLA EVERETT MD Ot Z89.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 06/24/2019 KARLOS OLVERA, MARLA Ackerman Ot Z95.5 PRESENCE OF CORONARY ANGIOPLASTY IMPLANT 06/24/2019 MARLA EVERETT MD Ot Z99.81 DEPENDENCE ON SUPPLEMENTAL OXYGEN 06/30/2019 THOMPSON QURESHI APRN Ot D64 .9 ANEMIA, UNSPECIFIED 06/30/2019 THOMPSON QURESHI APRN Ot E11 .9 TYPE 2 DIABETES MELLITUS WITHOUT COMPLIC 06/30/2019 THOMPSON QURESHI APRN Ot F32 .9 MAJOR DEPRESSIVE DISORDER, SINGLE EPISOD 06/30/2019 THOMPSON QURESHI APRN Ot F41 .9 ANXIETY DISORDER, UNSPECIFIED 06/30/2019 THOMPSON QURESHI APRN Ot G43.909 MIGRAINE, UNSP, NOT INTRACTABLE, WITHOUT 06/30/2019 THOMPSON QURESHI APRN Ot I10 ESSENTIAL (PRIMARY) HYPERTENSION 06/30/2019 THOMPSON QURESHI APRN Ot I25 .2 OLD MYOCARDIAL INFARCTION 06/30/2019 THOMPSON QURESHI APRN, Ot J44 .9 CHRONIC OBSTRUCTIVE PULMONARY DISEASE, U 06/30/2019 THOMPSON QURESHI APRN Ot K21 .9 GASTRO-ESOPHAGEAL REFLUX DISEASE WITHOUT 06/30/2019 THOMPSON QURESHI APRN Ot R06.02 SHORTNESS OF BREATH 06/30/2019 THOMPSON QURESHI APRN Ot Z87.09 PERSONAL HISTORY OF OTHER DISEASES OF TH 06/30/2019 THOMPSON QURESHI APRN Ot Z87.891 PERSONAL HISTORY OF NICOTINE DEPENDENCE 06/30/2019 THOMPSON QURESHI APRN Ot Z88 .0 ALLERGY STATUS TO PENICILLIN 06/30/2019 THOMPSON QURESHI APRN Ot Z88 .5 ALLERGY STATUS TO NARCOTIC AGENT STATUS 06/30/2019 THOMPSON QURESHI APRN Ot Z88 .6 ALLERGY STATUS TO ANALGESIC AGENT STATUS 06/30/2019 THOMPSON QURESHI APRN Ot Z88 .8 ALLERGY STATUS TO OTH DRUG/MEDS/BIOL SUB 06/30/2019 THOMPSON QURESHI APRN Ot Z90.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 BOTH CERVIX AND UTER 07/04/2019 THOMPSON QURESHI APRN Ot D64 .9 ANEMIA, UNSPECIFIED 07/04/2019 THOMPSON QURESHI APRN Ot E11 .9 TYPE 2 DIABETES MELLITUS WITHOUT COMPLIC 07/04/2019 THOMPSON QURESHI APRN Ot F32 .9 MAJOR DEPRESSIVE DISORDER, SINGLE EPISOD 07/04/2019 THOMPSON QURESHI APRN Ot F41 .9 ANXIETY DISORDER, UNSPECIFIED 07/04/2019 THOMPSON QURESHI APRN Ot G43.909 MIGRAINE, UNSP, NOT INTRACTABLE, WITHOUT 07/04/2019 THOMPSON QURESHI APRN Ot I10 ESSENTIAL (PRIMARY) HYPERTENSION 07/04/2019 THOMPSON QURESHI APRN Ot I25 .2 OLD MYOCARDIAL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 35-52 Automated erythrocyte mean corpuscular volume 80 [ foz_us] 80-99 Automated erythrocyte mean corpuscular h emoglobin (mass per erythrocyte) 25 pg 25-34 Automated erythrocyte mean corpuscular h emoglobin concentration measurement (mass/volume) 31 g/dL 32-36 Automated erythrocyte distribution width ratio 18. 4 % 10.0- 14.5 Automated blood platelet count [...] 10*3 1.0-4.0 Blood monocytes automated count (number/volume) 0. 5 10*3 0.0-1.0 Automated eosinophil count 0.3 10*3/uL 0 .0-0.3 Automated blood basophil count (count/volume) 0.0 10*3/uL 0.0-0.1 PT panel in platelet poor plasma by coag ulation assay - 02/21/18 16:44 Prothrombin time (PT) in platelet poor plasma by coagu lation assay 13.5 s 12.2-14.7 INR in platelet poor plasma or blood by coagulation as say 1.0 0.8-1.4 Activated partial thromboplastin time (a PTT) in platelet poor plasma bycoagulation assay - 02/21/18 16:44 Activated partial thromboplastin time (a PTT) in platelet poor plasma bycoagulation assay 25 s 24-35 Comprehensive metabolic panel - 02/21/18 17:24 Serum or plasma sodium measurement (moles/volume) 138 mmol/L 135-145 Serum or plasma potassium measurement (moles/volume) 4.0 mmol/L 3.6-5.0 Serum or plasma chloride measurement (moles/volume) 111 mmol/L 98-107 Carbon dioxide 23 mmol/L 21-32 Serum or plasma anion gap determination (moles/volume) 4 mmol/L 5-14 Serum or plasma urea nitrogen measurement (mass/volume ) 20 mg/dL 7-18 Serum or plasma creatinine measurement (mass/volume) 0.74 mg/dL 0.60-1.30 Serum or plasma urea nitrogen/creatinine mass ratio 27 NRG Serum or plasma creatinine measurement w ith calculation of estimated glomerular filtration rate > NRG Serum or plasma glucose measurement (mass/volume) 99 mg/dL 70-105 Serum or plasma calcium measurement (mass/volume) 8.1 mg/dL 8.5-10.1 Serum or plasma total bilirubin measurement (mass/volu me) 0.2 mg/dL 0.1-1.0 Serum or plasma alkaline phosphatase mireya surement (enzymatic activity/volume) 78 U/L 40-136 Serum or plasma aspartate aminotransfera se measurement (enzymatic activity/volume) 17 U/L 5-34 Serum or plasma alanine aminotransferase measurement (enzymatic activity/volume) 13 U/L 0-55 Serum or plasma protein measurement (mass/volume) 5.9 g/dL 6.4-8.2 Serum or plasma albumin measurement (mass/volume) 3.2 g/dL 3.2-4.5 Magnesium - 02/21/18 17:24 Magnesium 1.8 mg/dL 1.8-2.4 Serum or plasma troponin i.cardiac measu rement (mass/volume) - 02/21/18 17:24 Serum or plasma troponin i.cardiac measurement (mass/v olume) < ng/mL <0.30 Serum or plasma ethanol measurement (mas s/volume) - 02/21/18 17:24 Serum or plasma ethanol measurement (mass/volume) < mg/dL <10 Complete urinalysis with reflex to cultu re - 02/21/18 18:11 Urine color determination YELLOW NRG Urine clarity determination VERY CLOUDY NRG Urine pH measurement by test strip 6 5-9 Specific gravity of urine by test strip 1.020 1.016-1.022 Urine protein assay by test strip, semi-quantitative NEGATIVE NEGATIVE Urine glucose detection by automated test strip NE GATIVE NEGATIVE Erythrocytes detection in urine sediment by light micr oscopy NEGATIVE NEGATIVE Urine ketones detection by automated test strip NE GATIVE NEGATIVE Urine nitrite detection by test strip NEGATIVE NEGATIVE Urine total bilirubin detection by test strip NEGA TIVE NEGATIVE Urine urobilinogen measurement by automated test strip (mass/volume) NORMAL NORMAL Urine leukocyte esterase detection by dipstick 1+ NEGATIVE Automated urine sediment erythrocyte cou nt by microscopy (number/high power field) NONE NRG Automated urine sediment leukocyte count by microscopy (number/high power field) [HPF] NRG Bacteria detection in urine sediment by light microsco py LARGE NRG Squamous epithelial cells detection in u rine sediment by light microscopy NONE NRG Crystals detection in urine sediment by light microsco py NONE NRG Casts detection in urine sediment by light microscopy NONE NRG Mucus detection in urine sediment by light microscopy NEGATIVE NRG Complete urinalysis with reflex to culture YES NRG Urine drug screening test - 02/21/18 18: 11 Urine phencyclidine detection by screening method NEGATIVE NEGATIVE Urine benzodiazepines detection by screening method POSITIVE NEGATIVE Urine cocaine detection NEGATIVE NEGATI VE Urine amphetamines detection by screening method N EGATIVE NEGATIVE Urine methamphetamine detection by screening method NEGATIVE NEGATIVE Urine cannabinoids detection by screening method N EGATIVE NEGATIVE Urine opiates detection by screening method NEGATI VE NEGATIVE Urine barbiturates detection NEGATIVE N EGATIVE Screening urine tricyclic antidepressants detection POSITIVE NEGATIVE Urine methadone detection by screening method NEGA TIVE NEGATIVE Urine oxycodone detection NEGATIVE NEGA TIVE Urine propoxyphene detection NEGATIVE N EGATIVE Bacterial urine culture - 02/21/18 18:11 Bacterial urine culture [id number] NRG COLONY COUNT >100,000/ML NRG Automated blood complete blood count (he mogram) panel - 03/09/18 07:08 Blood leukocytes automated count (number/volume) 12.4 10*3/uL 4.3-11.0 Blood erythrocytes automated count (number/volume) 4.68 10*6/uL 4.35-5.85 Venous blood hemoglobin measurement (mass/volume) 11.6 g/dL 11.5-16.0 Blood hematocrit (volume fraction) 38 % 35-52 Automated erythrocyte mean corpuscular volume 80 [ foz_us] 80-99 Automated erythrocyte mean corpuscular h emoglobin (mass per erythrocyte) 25 pg 25-34 Automated erythrocyte mean corpuscular h emoglobin concentration measurement (mass/volume) 31 g/dL 32-36 Automated erythrocyte distribution width ratio 17. 8 % 10.0- 14.5 Automated blood platelet count (count/volume) 320 10*3/uL 130-400 Automated blood platelet mean volume measurement 10.9 [foz_us] 7.4-10.4 PT panel in platelet poor plasma by coag ulation assay - 03/09/18 07:08 Prothrombin time (PT) in platelet poor plasma by coagu lation assay 12.8 s 12.2-14.7 INR in platelet poor plasma or blood by coagulation as say 1.0 0.8-1.4 Activated partial thromboplastin time (a PTT) in platelet poor plasma bycoagulation assay - 03/09/18 07:08 Activated partial thromboplastin time (a PTT) in platelet poor plasma bycoagulation assay 24 s 24-35 Comprehensive metabolic panel - 03/09/18 07:08 Serum or plasma sodium measurement (moles/volume) 141 mmol/L 135-145 Serum or plasma potassium measurement (moles/volume) 4.2 mmol/L 3.6-5.0 Serum or plasma chloride measurement (moles/volume) 108 mmol/L 98-107 Carbon dioxide 23 mmol/L 21-32 Serum or plasma anion gap determination (moles/volume) 10 mmol/L 5-14 Serum or plasma urea nitrogen measurement (mass/volume ) 21 mg/dL 7-18 Serum or plasma creatinine measurement (mass/volume) 0.78 mg/dL 0.60-1.30 Serum or plasma urea nitrogen/creatinine mass ratio 27 NRG Serum or plasma creatinine measurement w ith calculation of estimated glomerular filtration rate > NRG Serum or plasma glucose measurement (mass/volume) 85 mg/dL 70-105 Serum or plasma calcium measurement (mass/volume) 9.0 mg/dL 8.5-10.1 Serum or plasma total bilirubin measurement (mass/volu me) 0.2 mg/dL 0.1-1.0 Serum or plasma alkaline phosphatase mireya surement (enzymatic activity/volume) 104 U/L 40-136 Serum or plasma aspartate aminotransfera se measurement (enzymatic activity/volume) 20 U/L 5-34 Serum [...] Serum or plasma cholesterol in HDL measurement (mass/v olume) 48 mg/dL 40-60 Cholesterol in LDL [mass/volume] in serum or plasma by direct assay 76 mg/dL 1-129 Serum or plasma cholesterol in VLDL measurement (mass/ volume) 31 mg/dL 5-40 Methicillin resistant Staphylococcus aur eus (MRSA) screening culture - 03/09/18 07:08 Methicillin resistant Staphylococcus aureus (MRSA) scr eening culture NEG NRG CBC - 07/08/18 15:59 WHITE BLOOD CELL COUNT 9.8 Thousand/uL 3 .8-10.8 RED BLOOD CELL COUNT 4.84 Million/uL 3.8 0-5.10 HEMOGLOBIN 10.6 g/dL 11.7-15.5 HEMATOCRIT 35.5 % 35.0-45.0 MCV 73.3 fL 80.0-100.0 MCH 21.9 pg 27.0-33.0 MCHC 29.9 g/dL 32.0-36.0 RDW 18.6 % 11.0-15.0 PLATELET COUNT 324 Thousand/uL 140-400 MPV 11.9 fL 7.5-12.5 ABSOLUTE NEUTROPHILS 4890 cells/uL 1500- 7800 ABSOLUTE LYMPHOCYTES 3685 cells/uL 850-3 900 ABSOLUTE MONOCYTES 970 cells/uL 200-950 ABSOLUTE EOSINOPHILS [...] (calc) 11-50 Complete blood count (CBC) with automate d white blood cell (WBC) differential - 11/26/18 14:40 Blood leukocytes automated count (number/volume) 18.0 10*3/uL 4.3-11.0 Blood erythrocytes automated count (number/volume) 4.86 10*6/uL 4.35-5.85 Venous blood hemoglobin measurement (mass/volume) 10.4 g/dL 11.5-16.0 Blood hematocrit (volume fraction) 37 % 35-52 Automated erythrocyte mean corpuscular volume 76 [ foz_us] 80-99 Automated erythrocyte mean corpuscular h emoglobin (mass per erythrocyte) 21 pg 25-34 Automated erythrocyte mean corpuscular h emoglobin concentration measurement (mass/volume) 28 g/dL 32-36 Automated erythrocyte distribution width ratio 18. 2 % 10.0- 14.5 Automated blood platelet count [...] 10*3 1.0-4.0 Blood monocytes automated count (number/volume) 0. 8 10*3 0.0-1.0 Automated eosinophil count 0.3 10*3/uL 0 .0-0.3 Automated blood basophil count (count/volume) 0.0 10*3/uL 0.0-0.1 Comprehensive metabolic panel - 11/26/18 14:40 Serum or plasma sodium measurement (moles/volume) 139 mmol/L 135-145 Serum or plasma potassium measurement (moles/volume) 4.8 mmol/L 3.6-5.0 Serum or plasma chloride measurement (moles/volume) 110 mmol/L 98-107 Carbon dioxide 17 mmol/L 21-32 Serum or plasma anion gap determination (moles/volume) 12 mmol/L 5-14 Serum or plasma urea nitrogen measurement (mass/volume ) 27 mg/dL 7-18 Serum or plasma creatinine measurement (mass/volume) 0.72 mg/dL 0.60-1.30 Serum or plasma urea nitrogen/creatinine mass ratio 38 NRG Serum or plasma creatinine measurement w ith calculation of estimated glomerular filtration rate > NRG Serum or plasma glucose measurement (mass/volume) 119 mg/dL 70-105 Serum or plasma calcium measurement (mass/volume) 8.6 mg/dL 8.5-10.1 Serum or plasma total bilirubin measurement (mass/volu me) 0.3 mg/dL 0.1-1.0 Serum or plasma alkaline phosphatase mireya surement (enzymatic activity/volume) 84 U/L 40-136 Serum or plasma aspartate aminotransfera se measurement (enzymatic activity/volume) 25 U/L 5-34 Serum or plasma alanine aminotransferase measurement (enzymatic activity/volume) 11 U/L 0-55 Serum or plasma protein measurement (mass/volume) 7.7 g/dL 6.4-8.2 Serum or plasma albumin measurement (mass/volume) 3.8 g/dL 3.2-4.5 CALCIUM CORRECTED 8.8 mg/dL 8.5-10.1 Blood manual differential performed dete ction - 11/26/18 14:40 Blood monocytes/100 leukocytes 1 % NRG Manual blood segmented neutrophils/100 leukocytes 98 % NRG Blood band neutrophils/100 leukocytes 0 % NRG Manual blood lymphocytes/100 leukocytes 1 % NRG Manual eosinophils/100 leukocytes in nose 0 % NRG Manual blood basophils/100 leukocytes 0 % NRG [facility] light [facility] Blood microcytes detection by light microscopy [facility] Blood lactic acid measurement (moles/vol ume) - 11/26/18 14:40 Blood lactic acid measurement (moles/volume) 1.99 mmol/L 0.50-2.00 Bacterial blood culture - 11/26/18 14:40 QUANTITY OF GROWTH . NRG Bacterial blood culture SEE COMMEN NRG Complete urinalysis with reflex to cultu re - 11/26/18 15:25 Urine color determination YELLOW NRG Urine clarity determination SLIGHTLY CLOUDY NRG Urine pH measurement by test strip 5 5-9 Specific gravity of urine by test strip 1.020 1.016-1.022 Urine protein assay by test strip, semi-quantitative 3+ NEGATIVE Urine glucose detection by automated test strip NE GATIVE NEGATIVE Erythrocytes detection in urine sediment by light micr oscopy 2+ NEGATIVE Urine ketones detection by automated test strip NE GATIVE NEGATIVE Urine nitrite detection by test strip POSITIVE NEGATIVE Urine total bilirubin detection by test strip 1+ NEGATIVE Urine urobilinogen measurement by automated test strip (mass/volume) 1 mg/dL NORMAL Urine leukocyte esterase detection by dipstick 3+ NEGATIVE Automated urine sediment erythrocyte cou nt by microscopy (number/high power field) [HPF] NRG Automated urine sediment leukocyte count by microscopy (number/high power field) [HPF] NRG Bacteria detection in urine sediment by light microsco py LARGE NRG Squamous epithelial cells detection in u rine sediment by light microscopy 5-10 NRG Crystals detection in urine sediment by light microsco py NONE NRG Casts detection in urine sediment by light microscopy NONE NRG Mucus detection in urine sediment by light microscopy SMALL NRG Complete urinalysis with reflex to culture YES NRG Bacterial urine culture - 11/26/18 15:25 Bacterial urine culture [id number] NRG COLONY COUNT >100,000/ML NRG FTX;REPORTABLE RML SENT SENSITIVITY REPORT 11/28 1 0:05 NRG FREE TEXT ENTRY 3 RML SENT ID REPORT 11/26 16:06 NRG RML Sensitivity Panel - 11/26/18 15:25 Gentamicin susceptibility test by minimum inhibitory c oncentration <= NRG Trimethoprim/sulfamethoxazole susceptibi lity test by minimum inhibitoryconcentration > NRG Levofloxacin susceptibility test by minimum inhibitory concentration > NRG Ampicillin susceptibility test by minimum inhibitory c oncentration > NRG Cefazolin susceptibility test by minimum inhibitory co ncentration 2 NRG Ceftriaxone susceptibility test by minimum inhibitory concentration <= NRG Ciprofloxacin susceptibility test by minimum inhibitor y concentration > NRG Meropenem susceptibility test by minimum inhibitory co ncentration <= NRG Nitrofurantoin susceptibility test by mi nimum inhibitory concentration <= NRG Amoxicillin and clavulanate potassium susc HARRY = NRG Bacterial blood culture - 11/26/18 16:15 Bacterial blood culture NG NRG C DIFFICILE AG + TOXIN A/B. - 11/26/18 2 2:45 RESULTS NEGATIVE FOR ANTIGEN AND TOXIN A/B NRG Complete blood count (CBC) with automate d white blood cell (WBC) differential - 11/27/18 05:13 Blood leukocytes automated count (number/volume) 10.3 10*3/uL 4.3-11.0 Blood erythrocytes automated count (number/volume) 3.97 10*6/uL 4.35-5.85 Venous blood hemoglobin measurement (mass/volume) 8.7 g/dL 11.5-16.0 Blood hematocrit (volume fraction) 30 % 35-52 Automated erythrocyte mean corpuscular volume 76 [ foz_us] 80-99 Automated erythrocyte mean corpuscular h emoglobin (mass per erythrocyte) 22 pg 25-34 Automated erythrocyte mean corpuscular h emoglobin concentration measurement (mass/volume) 29 g/dL 32-36 Automated erythrocyte distribution width ratio 18. 0 % 10.0- 14.5 Automated blood platelet count [...] 10*3 1.0-4.0 Blood monocytes automated count (number/volume) 0. 8 10*3 0.0-1.0 Automated eosinophil count 0.0 10*3/uL 0 .0-0.3 Automated blood basophil count (count/volume) 0.0 10*3/uL 0.0-0.1 Whole blood basic metabolic panel - 10/31 08/17 05:13 Serum or plasma sodium measurement (moles/volume) 140 mmol/L 135-145 Serum or plasma potassium measurement (moles/volume) 3.7 mmol/L 3.6-5.0 Serum or plasma chloride measurement (moles/volume) 114 mmol/L 98-107 Carbon dioxide 15 mmol/L 21-32 Serum or plasma anion gap determination (moles/volume) 11 mmol/L 5-14 Serum or plasma urea nitrogen measurement (mass/volume ) 19 mg/dL 7-18 Serum or plasma creatinine measurement (mass/volume) 0.54 mg/dL 0.60-1.30 Serum or plasma urea nitrogen/creatinine mass ratio 35 NRG Serum or plasma creatinine measurement w ith calculation of estimated glomerular filtration rate > NRG Serum or plasma glucose measurement (mass/volume) 106 mg/dL 70-105 Serum or plasma calcium measurement (mass/volume) 8.0 mg/dL 8.5-10.1 Capillary blood glucose measurement by g lucometer (mass/volume) - 11/27/18 10:57 Capillary blood glucose measurement by glucometer (mas s/volume) 129 mg/dL 70-110 Blood lactic acid measurement (moles/vol ume) - 11/27/18 12:20 Blood lactic acid measurement (moles/volume) 1.86 mmol/L 0.50-2.00 Capillary blood glucose measurement by g lucometer (mass/volume) - 11/27/18 14:31 Capillary blood glucose measurement by glucometer (mas s/volume) 154 mg/dL 70-110 Capillary blood glucose measurement by g lucometer (mass/volume) - 11/27/18 19:24 Capillary blood glucose measurement by glucometer (mas s/volume) 104 mg/dL 70-110 Stool bacteria identification by culture - 11/28/18 09:43 QUANTITY OF GROWTH . [facility] Stool bacteria identification by culture PROGRESS [facility] Capillary blood glucose measurement by g lucometer (mass/volume) - 11/28/18 10:32 Capillary blood glucose measurement by glucometer (mas s/volume) 92 mg/dL 70-110 Capillary blood glucose measurement by g lucometer (mass/volume) - 11/28/18 14:27 Capillary blood glucose measurement by glucometer (mas s/volume) 89 mg/dL 70-110 Capillary blood glucose measurement by g lucometer (mass/volume) - 11/28/18 23:06 Capillary blood glucose measurement by glucometer (mas s/volume) 80 mg/dL 70-110 Capillary blood glucose measurement by g lucometer (mass/volume) - 11/29/18 05:13 Capillary blood glucose measurement by glucometer (mas s/volume) 79 mg/dL 70-110 Complete blood count (CBC) with automate d white blood cell (WBC) differential - 11/29/18 08:25 Blood leukocytes automated count (number/volume) 2.1 10*3/uL 4.3-11.0 Blood erythrocytes automated count (number/volume) 3.41 10*6/uL 4.35-5.85 Venous blood hemoglobin measurement (mass/volume) 7.3 g/dL 11.5-16.0 Blood hematocrit (volume fraction) 26 % 35-52 Automated erythrocyte mean corpuscular volume 77 [ foz_us] 80-99 Automated erythrocyte mean corpuscular h emoglobin (mass per erythrocyte) 21 pg 25-34 Automated erythrocyte mean corpuscular h emoglobin concentration measurement (mass/volume) 28 g/dL 32-36 Automated erythrocyte distribution width ratio 18. 2 % 10.0- 14.5 Automated blood platelet count [...] 10*3 1.0-4.0 Blood monocytes automated count (number/volume) 0. 3 10*3 0.0-1.0 Automated eosinophil count 0.0 10*3/uL 0 .0-0.3 Automated blood basophil count (count/volume) 0.0 10*3/uL 0.0-0.1 Comprehensive metabolic panel - 11/29/18 08:25 Serum or plasma sodium measurement (moles/volume) 141 mmol/L 135-145 Serum or plasma potassium measurement (moles/volume) 3.2 mmol/L 3.6-5.0 Serum or plasma chloride measurement (moles/volume) 119 mmol/L 98-107 Carbon dioxide 14 mmol/L 21-32 Serum or plasma anion gap determination (moles/volume) 8 mmol/L 5-14 Serum or plasma urea nitrogen measurement (mass/volume ) 8 mg/dL 7-18 Serum or plasma creatinine measurement (mass/volume) 0.53 mg/dL 0.60-1.30 Serum or plasma urea nitrogen/creatinine mass ratio 15 NRG Serum or plasma creatinine measurement w ith calculation of estimated glomerular filtration rate > NRG Serum or plasma glucose measurement (mass/volume) 77 mg/dL 70-105 Serum or plasma calcium measurement (mass/volume) 7.3 mg/dL 8.5-10.1 Serum or plasma total bilirubin measurement (mass/volu me) 0.1 mg/dL 0.1-1.0 Serum or plasma alkaline phosphatase mireya surement (enzymatic activity/volume) 50 U/L 40-136 Serum or plasma aspartate aminotransfera se measurement (enzymatic activity/volume) 42 U/L 5-34 Serum or plasma alanine aminotransferase measurement (enzymatic activity/volume) 22 U/L 0-55 Serum or plasma protein measurement (mass/volume) 5.0 g/dL 6.4-8.2 Serum or plasma albumin measurement (mass/volume) 2.5 g/dL 3.2-4.5 CALCIUM CORRECTED 8.5 mg/dL 8.5-10.1 IRON TEST - 11/29/18 08:25 Serum or plasma iron measurement (mass/volume) < % 35-180 Capillary blood glucose measurement by g lucometer (mass/volume) - 11/29/18 10:28 Capillary blood glucose measurement by glucometer (mas s/volume) 81 mg/dL 70-110 Capillary blood glucose measurement by g lucometer (mass/volume) - 11/29/18 15:04 Capillary blood glucose measurement by glucometer (mas s/volume) 96 mg/dL 70-110 RED CELLS LEUKO REDUCED AS1 - 11/29/18 2 0:04 RED CELLS LEUKO REDUCED AS1 T RANSFUSED 11/29/18 2309 [facility] Blood type T Indirect antibody screen pa manuela - 11/29/18 20:04 ABO+Rh group BP [facility] Transfusion band number [id number] [facility] Blood group antibody screen NEGATIVE NR G Capillary blood glucose measurement by g lucometer (mass/volume) - 11/29/18 20:07 Capillary blood glucose measurement by glucometer (mas s/volume) 87 mg/dL 70-110 Capillary blood glucose measurement by g lucometer (mass/volume) - 11/30/18 06:25 Capillary blood glucose measurement by glucometer (mas s/volume) 92 mg/dL 70-110 Complete blood count (CBC) with automate d white blood cell (WBC) differential - 11/30/18 07:05 Blood leukocytes automated count (number/volume) 3.5 10*3/uL 4.3-11.0 Blood erythrocytes automated count (number/volume) 4.27 10*6/uL 4.35-5.85 Venous blood hemoglobin measurement (mass/volume) 9.9 g/dL 11.5-16.0 Blood hematocrit (volume fraction) 33 % 35-52 Automated erythrocyte mean corpuscular volume 77 [ foz_us] 80-99 Automated erythrocyte mean corpuscular h emoglobin (mass per erythrocyte) 23 pg 25-34 Automated erythrocyte mean corpuscular h emoglobin concentration measurement (mass/volume) 30 g/dL 32-36 Automated erythrocyte distribution width ratio 17. 2 % 10.0- 14.5 Automated blood platelet count [...] 10*3 1.0-4.0 Blood monocytes automated count (number/volume) 0. 5 10*3 0.0-1.0 Automated eosinophil count 0.1 10*3/uL 0 .0-0.3 Automated blood basophil count (count/volume) 0.0 10*3/uL 0.0-0.1 Comprehensive metabolic panel - 11/30/18 07:05 Serum or plasma sodium measurement (moles/volume) 142 mmol/L 135-145 Serum or plasma potassium measurement (moles/volume) 3.8 mmol/L 3.6-5.0 Serum or plasma chloride measurement (moles/volume) 118 mmol/L 98-107 Carbon dioxide 15 mmol/L 21-32 Serum or plasma anion gap determination (moles/volume) 9 mmol/L 5-14 Serum or plasma urea nitrogen measurement (mass/volume ) 5 mg/dL 7-18 Serum or plasma creatinine measurement (mass/volume) 0.53 mg/dL 0.60-1.30 Serum or plasma urea nitrogen/creatinine mass ratio 9 NRG Serum or plasma creatinine measurement w ith calculation of estimated glomerular filtration rate > NRG Serum or plasma glucose measurement (mass/volume) 96 mg/dL 70-105 Serum or plasma calcium measurement (mass/volume) 7.3 mg/dL 8.5-10.1 Serum or plasma total bilirubin measurement (mass/volu me) 0.4 mg/dL 0.1-1.0 Serum or plasma alkaline phosphatase mireya surement (enzymatic activity/volume) 56 U/L 40-136 Serum or plasma aspartate aminotransfera se measurement (enzymatic activity/volume) 29 U/L 5-34 Serum or plasma alanine aminotransferase measurement (enzymatic activity/volume) 19 U/L 0-55 Serum or plasma protein measurement (mass/volume) 5.3 g/dL 6.4-8.2 Serum or plasma albumin measurement (mass/volume) 2.7 g/dL 3.2-4.5 CALCIUM CORRECTED 8.3 mg/dL 8.5-10.1 Capillary blood glucose measurement by g lucometer (mass/volume) - 11/30/18 12:07 Capillary blood glucose measurement by glucometer (mas s/volume) 83 mg/dL 70-110 Capillary blood glucose measurement by g lucometer (mass/volume) - 11/30/18 14:29 Capillary blood glucose measurement by glucometer (mas s/volume) 97 mg/dL 70-110 Capillary blood glucose measurement by g lucometer (mass/volume) - 11/30/18 19:19 Capillary blood glucose measurement by glucometer (mas s/volume) 103 mg/dL 70-110 Capillary blood glucose measurement by g lucometer (mass/volume) - 12/01/18 05:40 Capillary blood glucose measurement by glucometer (mas s/volume) 90 mg/dL 70-110 Capillary blood glucose measurement by g lucometer (mass/volume) - 12/01/18 10:47 Capillary blood glucose measurement by glucometer (mas s/volume) 101 mg/dL 70-110 Capillary blood glucose measurement by g lucometer (mass/volume) - 12/01/18 10:57 Capillary blood glucose measurement by glucometer (mas s/volume) 174 mg/dL 70-110 CULTURE, URINE - 02/15/19 18:11 CULTURE, URINE, ROUTINE SEE NOTE NRG CMP - 05/02/19 15:24 GLUCOSE 97 mg/dL 65-99 UREA NITROGEN (BUN) 21 mg/dL 7-25 CREATININE 0.72 mg/dL 0.50-1.05 eGFR NON-AFR. DJIBOUTIAN 94 mL/min/1.73m2 > OR = 60 eGFR 109 mL/min/1.73m2 > OR = 60 BUN/CREATININE RATIO NOT APPLICABLE (calc) 6-22 SODIUM 140 mmol/L 135-146 POTASSIUM 4.1 mmol/L 3.5-5.3 CHLORIDE 108 mmol/L 98-110 CARBON DIOXIDE 26 mmol/L 20-32 CALCIUM 8.4 mg/dL 8.6-10.4 PROTEIN, TOTAL 6.2 g/dL 6.1-8.1 ALBUMIN 3.2 g/dL 3.6-5.1 GLOBULIN 3.0 g/dL (calc) 1.9-3.7 ALBUMIN/GLOBULIN RATIO 1.1 (calc) 1.0-2. 5 BILIRUBIN, TOTAL 0.3 mg/dL 0.2-1.2 ALKALINE PHOSPHATASE 84 U/L 33-130 AST 14 U/L 10-35 ALT 9 U/L 6-29 CBC - 05/02/19 15:24 WHITE BLOOD CELL COUNT 9.1 Thousand/uL 3 .8-10.8 RED BLOOD CELL COUNT 4.36 Million/uL 3.8 0-5.10 HEMOGLOBIN 9.4 g/dL 11.7-15.5 HEMATOCRIT 32.6 % 35.0-45.0 MCV 74.8 fL 80.0-100.0 MCH 21.6 pg 27.0-33.0 MCHC 28.8 g/dL 32.0-36.0 RDW 16.0 % 11.0-15.0 PLATELET COUNT 236 Thousand/uL 140-400 MPV 11.1 fL 7.5-12.5 ABSOLUTE NEUTROPHILS 5551 cells/uL 1500- 7800 ABSOLUTE LYMPHOCYTES 2348 cells/uL 850-3 900 ABSOLUTE MONOCYTES 910 cells/uL 200-950 ABSOLUTE EOSINOPHILS 228 cells/uL 15-500 ABSOLUTE BASOPHILS 64 cells/uL 0-200 NEUTROPHILS 61 % NRG LYMPHOCYTES 25.8 % NRG MONOCYTES 10.0 % NRG EOSINOPHILS 2.5 % NRG BASOPHILS 0.7 % NRG Arterial blood gas measurement - 9 11:09 Blood pCO2 46 mm[Hg] 35-45 Blood pO2 60 mm[Hg] 79-93 Arterial blood bicarbonate measurement (moles/volume) 26 mmol/L 23-27 Arterial blood base excess by calculation 1.2 mmol /L -2.5-2.5 Arterial blood oxygen saturation measurement 94 % 94-100 * Inhaled oxygen flow rate N/A NRG Arterial blood pH measurement with patient temperature correction 7.37 7.37-7.43 Arterial blood carbon dioxide, total measurement (mole s/volume) 27.5 mmol/L 21.0-31.0 Body site LEFT RADIAL NRG Assessment of wrist artery patency prior to arterial p uncture POSITIVE NRG Setting of ventilation mode NO NR G Measurement of body temperature 97.7 NRG CULTURE, URINE - 06/10/19 10:47 CULTURE, URINE, ROUTINE SEE NOTE NRG Complete blood count (CBC) with automate d white blood cell (WBC) differential - 06/14/19 11:02 Blood leukocytes automated count (number/volume) 26.2 10*3/uL 4.3-11.0 Blood erythrocytes automated count (number/volume) 4.52 10*6/uL 4.35-5.85 Venous blood hemoglobin measurement (mass/volume) 8.7 g/dL 11.5-16.0 Blood hematocrit (volume fraction) 32 % 35-52 Automated erythrocyte mean corpuscular volume 71 [ foz_us] 80-99 Automated erythrocyte mean corpuscular h emoglobin (mass per erythrocyte) 19 pg 25-34 Automated erythrocyte mean corpuscular h emoglobin concentration measurement (mass/volume) 27 g/dL 32-36 Automated erythrocyte distribution width ratio 18. 9 % 10.0- 14.5 Automated blood platelet count (count/volume) 358 10*3/uL 130-400 Automated blood platelet mean volume measurement 11.1 [foz_us] 7.4-10.4 Automated blood neutrophils/100 leukocytes 88 % 42-75 Automated blood lymphocytes/100 leukocytes 6 % 12-44 Blood monocytes/100 leukocytes 6 % 0-12 Automated blood eosinophils/100 leukocytes 1 % 0-10 Automated blood basophils/100 leukocytes 0 % 0-10 Blood neutrophils automated count (number/volume) 23.0 10*3 1.8-7.8 Blood lymphocytes automated count (number/volume) 1.5 10*3 1.0-4.0 Blood monocytes automated count (number/volume) 1. 5 10*3 0.0-1.0 Automated eosinophil count 0.2 10*3/uL 0 .0-0.3 Automated blood basophil count (count/volume) 0.1 10*3/uL 0.0-0.1 Comprehensive metabolic panel - 06/14/19 11:02 Serum or plasma sodium measurement (moles/volume) 137 mmol/L 135-145 Serum or plasma potassium measurement (moles/volume) 4.2 mmol/L 3.6-5.0 Serum or plasma chloride measurement (moles/volume) 108 mmol/L 98-107 Carbon dioxide 19 mmol/L 21-32 Serum or plasma anion gap determination (moles/volume) 10 mmol/L 5-14 Serum or plasma urea nitrogen measurement (mass/volume ) 19 mg/dL 7-18 Serum or plasma creatinine measurement (mass/volume) 1.12 mg/dL 0.60-1.30 Serum or plasma urea nitrogen/creatinine mass ratio 17 NRG Serum or plasma creatinine measurement w ith calculation of estimated glomerular filtration rate 51 NRG Serum or plasma glucose measurement (mass/volume) 159 mg/dL 70-105 Serum or plasma calcium measurement (mass/volume) 9.0 mg/dL 8.5-10.1 Serum or plasma total bilirubin measurement (mass/volu me) 0.4 mg/dL 0.1-1.0 Serum or plasma alkaline phosphatase mireya surement (enzymatic activity/volume) 115 U/L 40-136 Serum or plasma aspartate aminotransfera se measurement (enzymatic activity/volume) 12 U/L 5-34 Serum or plasma alanine aminotransferase measurement (enzymatic activity/volume) 9 U/L 0-55 Serum or plasma protein measurement (mass/volume) 6.8 g/dL 6.4-8.2 Serum or plasma albumin measurement (mass/volume) 3.3 g/dL 3.2-4.5 CALCIUM CORRECTED 9.6 mg/dL 8.5-10.1 Blood lactic acid measurement (moles/vol ume) - 06/14/19 11:02 Blood lactic acid measurement (moles/volume) 2.51 mmol/L 0.50-2.00 PT panel in platelet poor plasma by coag ulation assay - 06/14/19 11:02 Prothrombin time (PT) in platelet poor plasma by coagu lation assay 14.1 s 12.2-14.7 INR in platelet poor plasma or blood by coagulation as say 1.1 0.8-1.4 Activated partial thromboplastin time (a PTT) in platelet poor plasma bycoagulation assay - 06/14/19 11:02 Activated partial thromboplastin time (a PTT) in platelet poor plasma bycoagulation assay 32 s 24-35 Manual absolute plasma cell count - 05/30 05/18 11:02 Blood monocytes/100 leukocytes 3 % NRG Manual blood segmented neutrophils/100 leukocytes 91 % NRG Blood band neutrophils/100 leukocytes 3 % NRG Manual blood lymphocytes/100 leukocytes 2 % NRG Manual eosinophils/100 leukocytes in nose 1 % NRG Manual blood basophils/100 leukocytes 0 % NRG Blood polychromasia detection by light microscopy SLIGHT NRG Blood anisocytosis detection by light microscopy M ODERATE NRG Blood ovalocytes detection by light microscopy SLI GHT NRG Blood poikilocytosis detection by light microscopy SLIGHT NRG Blood hypochromia detection by light microscopy SL IGHT NRG Blood microcytes detection by light microscopy MOD ERATE NRG Bacterial blood culture - 06/14/19 11:02 FREE TEXT EXTERNAL NO SUSCEPTIBILITY PERFORMED NRG QUANTITY OF GROWTH Isolated NRG Bacterial blood culture [id number] NRG Complete urinalysis with reflex to cultu re - 06/14/19 11:10 Urine color determination YELLOW NRG Urine clarity determination VERY CLOUDY NRG Urine pH measurement by test strip 6 5-9 Specific gravity of urine by test strip 1.015 1.016-1.022 Urine protein assay by test strip, semi-quantitative 2+ NEGATIVE Urine glucose detection by automated test strip NE GATIVE NEGATIVE Erythrocytes detection in urine sediment by light micr oscopy 4+ NEGATIVE Urine ketones detection by automated test strip NE GATIVE NEGATIVE Urine nitrite detection by test strip NEGATIVE NEGATIVE Urine total bilirubin detection by test strip NEGA TIVE NEGATIVE Urine urobilinogen measurement by automated test strip (mass/volume) NORMAL NORMAL Urine leukocyte esterase detection by dipstick 3+ NEGATIVE Automated urine sediment erythrocyte cou nt by microscopy (number/high power field) [HPF] NRG Automated urine sediment leukocyte count by microscopy (number/high power field) > [HPF] NRG Bacteria detection in urine sediment by light microsco py LARGE NRG Squamous epithelial cells detection in u rine sediment by light microscopy 2-5 NRG Crystals detection in urine sediment by light microsco py NONE NRG Casts detection in urine sediment by light microscopy NONE NRG Mucus detection in urine sediment by light microscopy NEGATIVE NRG Complete urinalysis with reflex to culture CULTURE PENDING NRG Urine drug screening test - 06/14/19 11: 10 Urine phencyclidine detection by screening method NEGATIVE NEGATIVE Urine benzodiazepines detection by screening method NEGATIVE NEGATIVE Urine cocaine detection NEGATIVE NEGATI VE Urine amphetamines detection by screening method N EGATIVE NEGATIVE Urine methamphetamine detection by screening method NEGATIVE NEGATIVE Urine cannabinoids detection by screening method N EGATIVE NEGATIVE Urine opiates detection by screening method NEGATI VE NEGATIVE Urine barbiturates detection NEGATIVE N EGATIVE Screening urine tricyclic antidepressants detection NEGATIVE NEGATIVE Urine methadone detection by screening method NEGA TIVE NEGATIVE Urine oxycodone detection NEGATIVE NEGA TIVE Urine propoxyphene detection NEGATIVE N EGATIVE Bacterial urine culture - 06/14/19 11:10 Bacterial urine culture [id number] NRG COLONY COUNT >100,000/ML NRG FTX;REPORTABLE SUSCEPTIBILITIES REPORTED 06-17-19, 1205 NRG FREE TEXT ENTRY 2 EXTENDED-SPECTRUM BETA-LACTAMASE NRG FREE TEXT ENTRY 3 CALLED TO BRANNON/NURSE AT 1335, 06-17/ NRG Dirithromycin susceptibility test by dis k diffusion - 06/14/19 11:10 Gentamicin susceptibility test by minimum inhibitory c oncentration <= NRG Trimethoprim/sulfamethoxazole susceptibi lity test by minimum inhibitoryconcentration > NRG Levofloxacin susceptibility test by minimum inhibitory concentration > NRG Ampicillin susceptibility test by minimum inhibitory c oncentration > NRG Cefazolin susceptibility test by minimum inhibitory co ncentration > NRG Ceftriaxone susceptibility test by minimum inhibitory concentration > NRG Ciprofloxacin susceptibility test by minimum inhibitor y concentration > NRG Meropenem susceptibility test by minimum inhibitory co ncentration <= NRG Nitrofurantoin susceptibility test by mi nimum inhibitory concentration > NRG Amoxicillin and clavulanate potassium susc HARRY R NRG Dirithromycin susceptibility test by dis k diffusion - 06/14/19 11:10 Gentamicin susceptibility test by minimum inhibitory c oncentration <= NRG Levofloxacin susceptibility test by minimum inhibitory concentration <= NRG Tobramycin susceptibility test by minimum inhibitory c oncentration <= NRG Piperacillin/tazobactam susceptibility t est by minimum inhibitory concentration = NRG Ciprofloxacin susceptibility test by minimum inhibitor y concentration <= NRG Meropenem susceptibility test by minimum inhibitory co ncentration <= NRG Aztreonam susceptibility test by minimum inhibitory co ncentration 8 NRG Cefepime susceptibility test by minimum inhibitory con centration 2 NRG Imipenem susceptibility test by minimum inhibitory con centration 1 NRG Ceftazidime susceptibility test by minimum inhibitory concentration <= NRG Bacterial blood culture - 06/14/19 11:35 Bacterial blood culture NG NRG Serum or plasma lactate measurement (mol es/volume) - 06/14/19 13:18 Serum or plasma lactate measurement (moles/volume) 2.95 mmol/L 0.50-2.00 Arterial blood gas measurement - 9 15:20 Blood pCO2 42 mm[Hg] 35-45 Blood pO2 78 mm[Hg] 79-93 Arterial blood bicarbonate measurement (moles/volume) 20 mmol/L 23-27 Arterial blood base excess by calculation -5.1 mmo l/L -2.5-2.5 Arterial blood oxygen saturation measurement 92 % 94-100 * Inhaled oxygen flow rate 4 NRG Arterial blood pH measurement with patient temperature correction 7.31 7.37-7.43 Arterial blood carbon dioxide, total measurement (mole s/volume) 20.7 mmol/L 21.0-31.0 Body site RT RADIAL NRG Assessment of wrist artery patency prior to arterial p uncture YES-POS NRG Setting of ventilation mode NO NR G Measurement of body temperature 103.1 NRG Blood lactic acid measurement (moles/vol ume) - 06/14/19 15:50 Blood lactic acid measurement (moles/volume) 2.27 mmol/L 0.50-2.00 Methicillin resistant Staphylococcus aur eus (MRSA) screening culture - 06/14/19 17:17 Methicillin resistant Staphylococcus aureus (MRSA) scr eening culture NEG NRG Serum or plasma lactate measurement (mol es/volume) - 06/14/19 17:39 Serum or plasma lactate measurement (moles/volume) 1.53 mmol/L 0.50-2.00 Serum or plasma lithium measurement (mol es/volume) - 06/14/19 17:39 BNP PT 192.3 pg/mL <100.0 Arterial blood gas measurement - 9 17:55 Blood pCO2 42 mm[Hg] 35-45 Blood pO2 66 mm[Hg] 79-93 Arterial blood bicarbonate measurement (moles/volume) 21 mmol/L 23-27 Arterial blood base excess by calculation -4.2 mmo l/L -2.5-2.5 Arterial blood oxygen saturation measurement 90 % 94-100 * Inhaled oxygen flow rate 4 NRG Arterial blood pH measurement with patient temperature correction 7.32 7.37-7.43 Arterial blood carbon dioxide, total measurement (mole s/volume) 21.9 mmol/L 21.0-31.0 Body site RT RADIAL NRG Assessment of wrist artery patency prior to arterial p uncture YES-POS NRG Setting of ventilation mode NO NR G Measurement of body temperature 100.4 NRG C DIFFICILE AG + TOXIN A/B. - 06/15/19 0 0:05 RESULTS NEGATIVE FOR ANTIGEN AND TOXIN A/B NRG Capillary blood glucose measurement by g lucometer (mass/volume) - 06/15/19 00:47 Capillary blood glucose measurement by glucometer (mas s/volume) 121 mg/dL 70-110 Arterial blood gas measurement - 9 02:32 Blood pCO2 36 mm[Hg] 35-45 Blood pO2 87 mm[Hg] 79-93 Arterial blood bicarbonate measurement (moles/volume) 21 mmol/L 23-27 Arterial blood base excess by calculation -2.9 mmo l/L -2.5-2.5 Arterial blood oxygen saturation measurement 97 % 94-100 * Inhaled oxygen flow rate 35% NRG Arterial blood pH measurement with patient temperature correction 7.39 7.37-7.43 Arterial blood carbon dioxide, total measurement (mole s/volume) 22.3 mmol/L 21.0-31.0 Body site RIGHT RADIAL NRG Assessment of wrist artery patency prior to arterial p uncture YES-POS NRG Setting of ventilation mode NO NR G Measurement of body temperature 99.4 NRG Complete blood count (CBC) with automate d white blood cell (WBC) differential - 06/15/19 03:30 Blood leukocytes automated count (number/volume) 23.1 10*3/uL 4.3-11.0 Blood erythrocytes automated count (number/volume) 4.03 10*6/uL 4.35-5.85 Venous blood hemoglobin measurement (mass/volume) 7.9 g/dL 11.5-16.0 Blood hematocrit (volume fraction) 28 % 35-52 Automated erythrocyte mean corpuscular volume 70 [ foz_us] 80-99 Automated erythrocyte mean corpuscular h emoglobin (mass per erythrocyte) 20 pg 25-34 Automated erythrocyte mean corpuscular h emoglobin concentration measurement (mass/volume) 28 g/dL 32-36 Automated erythrocyte distribution width ratio 18. 3 % 10.0- 14.5 Automated blood platelet count (count/volume) 233 10*3/uL 130-400 Automated blood platelet mean volume measurement 11.4 [foz_us] 7.4-10.4 Automated blood neutrophils/100 leukocytes 87 % 42-75 Automated blood lymphocytes/100 leukocytes 6 % 12-44 Blood monocytes/100 leukocytes 7 % 0-12 Automated blood eosinophils/100 leukocytes 0 % 0-10 Automated blood basophils/100 leukocytes 0 % 0-10 Blood neutrophils automated count (number/volume) 20.1 10*3 1.8-7.8 Blood lymphocytes automated count (number/volume) 1.4 10*3 1.0-4.0 Blood monocytes automated count (number/volume) 1. 6 10*3 0.0-1.0 Automated eosinophil count 0.0 10*3/uL 0 .0-0.3 Automated blood basophil count (count/volume) 0.0 10*3/uL 0.0-0.1 Comprehensive metabolic panel - 06/15/19 03:30 Serum or plasma sodium measurement (moles/volume) 135 mmol/L 135-145 Serum or plasma potassium measurement (moles/volume) 4.6 mmol/L 3.6-5.0 Serum or plasma chloride measurement (moles/volume) 106 mmol/L 98-107 Carbon dioxide 18 mmol/L 21-32 Serum or plasma anion gap determination (moles/volume) 11 mmol/L 5-14 Serum or plasma urea nitrogen measurement (mass/volume ) 17 mg/dL 7-18 Serum or plasma creatinine measurement (mass/volume) 0.79 mg/dL 0.60-1.30 Serum or plasma urea nitrogen/creatinine mass ratio 22 NRG Serum or plasma creatinine measurement w ith calculation of estimated glomerular filtration rate > NRG Serum or plasma glucose measurement (mass/volume) 112 mg/dL 70-105 Serum or plasma calcium measurement (mass/volume) 8.9 mg/dL 8.5-10.1 Serum or plasma total bilirubin measurement (mass/volu me) 0.4 mg/dL 0.1-1.0 Serum or plasma alkaline phosphatase mireya surement (enzymatic activity/volume) 92 U/L 40-136 Serum or plasma aspartate aminotransfera se measurement (enzymatic activity/volume) 17 U/L 5-34 Serum or plasma alanine aminotransferase measurement (enzymatic activity/volume) 10 U/L 0-55 Serum or plasma protein measurement (mass/volume) 5.7 g/dL 6.4-8.2 Serum or plasma albumin measurement (mass/volume) 2.6 g/dL 3.2-4.5 CALCIUM CORRECTED 10.0 mg/dL 8.5-10.1 Serum or plasma phosphate measurement (m ass/volume) - 06/15/19 03:30 Serum or plasma phosphate measurement (mass/volume) 2.5 mg/dL 2.3-4.7 Magnesium - 06/15/19 03:30 Magnesium 1.6 mg/dL 1.8-2.4 Stool occult blood screen - 06/15/19 08: 49 Stool gastrointestinal hemoglobin detection POSITI VE NEGATIVE Capillary blood glucose measurement by g lucometer (mass/volume) - 06/15/19 11:30 Capillary blood glucose measurement by glucometer (mas s/volume) 176 mg/dL 70-110 Capillary blood glucose measurement by g lucometer (mass/volume) - 06/15/19 18:24 Capillary blood glucose measurement by glucometer (mas s/volume) 120 mg/dL 70-110 Complete blood count (CBC) with automate d white blood cell (WBC) differential - 06/16/19 03:40 Blood leukocytes automated count (number/volume) 15.9 10*3/uL 4.3-11.0 Blood erythrocytes automated count (number/volume) 3.85 10*6/uL 4.35-5.85 Venous blood hemoglobin measurement (mass/volume) 7.5 g/dL 11.5-16.0 Blood hematocrit (volume fraction) 27 % 35-52 Automated erythrocyte mean corpuscular volume 71 [ foz_us] 80-99 Automated erythrocyte mean corpuscular h emoglobin (mass per erythrocyte) 19 pg 25-34 Automated erythrocyte mean corpuscular h emoglobin concentration measurement (mass/volume) 27 g/dL 32-36 Automated erythrocyte distribution width ratio 18. 7 % 10.0- 14.5 Automated blood platelet count (count/volume) 219 10*3/uL 130-400 Automated blood platelet mean volume measurement 10.7 [foz_us] 7.4-10.4 Automated blood neutrophils/100 leukocytes 85 % 42-75 Automated blood lymphocytes/100 leukocytes 7 % 12-44 Blood monocytes/100 leukocytes 6 % 0-12 Automated blood eosinophils/100 leukocytes 2 % 0-10 Automated blood basophils/100 leukocytes 0 % 0-10 Blood neutrophils automated count (number/volume) 13.6 10*3 1.8-7.8 Blood lymphocytes automated count (number/volume) 1.1 10*3 1.0-4.0 Blood monocytes automated count (number/volume) 1. 0 10*3 0.0-1.0 Automated eosinophil count 0.4 10*3/uL 0 .0-0.3 Automated blood basophil count (count/volume) 0.0 10*3/uL 0.0-0.1 Comprehensive metabolic panel - 06/16/19 03:40 Serum or plasma sodium measurement (moles/volume) 140 mmol/L 135-145 Serum or plasma potassium measurement (moles/volume) 4.0 mmol/L 3.6-5.0 Serum or plasma chloride measurement (moles/volume) 110 mmol/L 98-107 Carbon dioxide 21 mmol/L 21-32 Serum or plasma anion gap determination (moles/volume) 9 mmol/L 5-14 Serum or plasma urea nitrogen measurement (mass/volume ) 15 mg/dL 7-18 Serum or plasma creatinine measurement (mass/volume) 0.67 mg/dL 0.60-1.30 Serum or plasma urea nitrogen/creatinine mass ratio 22 NRG Serum or plasma creatinine measurement w ith calculation of estimated glomerular filtration rate > NRG Serum or plasma glucose measurement (mass/volume) 93 mg/dL 70-105 Serum or plasma calcium measurement (mass/volume) 8.5 mg/dL 8.5-10.1 Serum or plasma total bilirubin measurement (mass/volu me) 0.3 mg/dL 0.1-1.0 Serum or plasma alkaline phosphatase mireya surement (enzymatic activity/volume) 100 U/L 40-136 Serum or plasma aspartate aminotransfera se measurement (enzymatic activity/volume) 17 U/L 5-34 Serum or plasma alanine aminotransferase measurement (enzymatic activity/volume) 9 U/L 0-55 Serum or plasma protein measurement (mass/volume) 5.6 g/dL 6.4-8.2 Serum or plasma albumin measurement (mass/volume) 2.5 g/dL 3.2-4.5 CALCIUM CORRECTED 9.7 mg/dL 8.5-10.1 Serum or plasma phosphate measurement (m ass/volume) - 06/16/19 03:40 Serum or plasma phosphate measurement (mass/volume) 2.2 mg/dL 2.3-4.7 Magnesium - 06/16/19 03:40 Magnesium 1.8 mg/dL 1.8-2.4 Blood type T Indirect antibody screen pa manuel[place] - 06/16/19 10:00 WRISTBAND NUMBER [id number] NRG ABO+Rh group BP NRG Blood group antibody screen NEGATIVE NR G RED CELLS LEUKO REDUCED AS1 - 06/16/19 1 0:01 RED CELLS LEUKO REDUCED AS1 T RANSFUSED 06/16/19 1311 NRG Capillary blood glucose measurement by g lucometer (mass/volume) - 06/16/19 11:30 Capillary blood glucose measurement by glucometer (mas s/volume) 139 mg/dL 70-110 Capillary blood glucose measurement by g lucometer (mass/volume) - 06/16/19 17:33 Capillary blood glucose measurement by glucometer (mas s/volume) 148 mg/dL 70-110 Venous blood hemoglobin measurement (mas s/volume) - 06/16/19 19:17 Venous blood hemoglobin measurement (mass/volume) 7.1 g/dL 11.5-16.0 Capillary blood glucose measurement by g lucometer (mass/volume) - 06/17/19 00:04 Capillary blood glucose measurement by glucometer (mas s/volume) 91 mg/dL 70-110 Capillary blood glucose measurement by g lucometer (mass/volume) - 06/17/19 05:47 Capillary blood glucose measurement by glucometer (mas s/volume) 136 mg/dL 70-110 Complete blood count (CBC) with automate d white blood cell (WBC) differential - 06/17/19 06:01 Blood leukocytes automated count (number/volume) 14.7 10*3/uL 4.3-11.0 Blood erythrocytes automated count (number/volume) 3.69 10*6/uL 4.35-5.85 Venous blood hemoglobin measurement (mass/volume) 7.5 g/dL 11.5-16.0 Blood hematocrit (volume fraction) 27 % 35-52 Automated erythrocyte mean corpuscular volume 73 [ foz_us] 80-99 Automated erythrocyte mean corpuscular h emoglobin (mass per erythrocyte) 20 pg 25-34 Automated erythrocyte mean corpuscular h emoglobin concentration measurement (mass/volume) 28 g/dL 32-36 Automated erythrocyte distribution width ratio 18. 6 % 10.0- 14.5 Automated blood platelet count (count/volume) 240 10*3/uL 130-400 Automated blood platelet mean volume measurement 11.1 [foz_us] 7.4-10.4 Automated blood neutrophils/100 leukocytes 86 % 42-75 Automated blood lymphocytes/100 leukocytes 6 % 12-44 Blood monocytes/100 leukocytes 6 % 0-12 Automated blood eosinophils/100 leukocytes 2 % 0-10 Automated blood basophils/100 leukocytes 0 % 0-10 Blood neutrophils automated count (number/volume) 12.6 10*3 1.8-7.8 Blood lymphocytes automated count (number/volume) 0.9 10*3 1.0-4.0 Blood monocytes automated count (number/volume) 0. 9 10*3 0.0-1.0 Automated eosinophil count 0.3 10*3/uL 0 .0-0.3 Automated blood basophil count (count/volume) 0.0 10*3/uL 0.0-0.1 Comprehensive metabolic panel - 06/17/19 06:01 Serum or plasma sodium measurement (moles/volume) 139 mmol/L 135-145 Serum or plasma potassium measurement (moles/volume) 3.9 mmol/L 3.6-5.0 Serum or plasma chloride measurement (moles/volume) 108 mmol/L 98-107 Carbon dioxide 25 mmol/L 21-32 Serum or plasma anion gap determination (moles/volume) 6 mmol/L 5-14 Serum or plasma urea nitrogen measurement (mass/volume ) 10 mg/dL 7-18 Serum or plasma creatinine measurement (mass/volume) 0.66 mg/dL 0.60-1.30 Serum or plasma urea nitrogen/creatinine mass ratio 15 NRG Serum or plasma creatinine measurement w ith calculation of estimated glomerular filtration rate > NRG Serum or plasma glucose measurement (mass/volume) 111 mg/dL 70-105 Serum or plasma calcium measurement (mass/volume) 8.3 mg/dL 8.5-10.1 Serum or plasma total bilirubin measurement (mass/volu me) 0.3 mg/dL 0.1-1.0 Serum or plasma alkaline phosphatase mireya surement (enzymatic activity/volume) 116 U/L 40-136 Serum or plasma aspartate aminotransfera se measurement (enzymatic activity/volume) 17 U/L 5-34 Serum or plasma alanine aminotransferase measurement (enzymatic activity/volume) 12 U/L 0-55 Serum or plasma protein measurement (mass/volume) 5.5 g/dL 6.4-8.2 Serum or plasma albumin measurement (mass/volume) 2.4 g/dL 3.2-4.5 CALCIUM CORRECTED 9.6 mg/dL 8.5-10.1 Serum or plasma phosphate measurement (m ass/volume) - 06/17/19 06:01 Serum or plasma phosphate measurement (mass/volume) 2.0 mg/dL 2.3-4.7 Magnesium - 06/17/19 06:01 Magnesium 1.4 mg/dL 1.8-2.4 Capillary blood glucose measurement by g lucometer (mass/volume) - 06/17/19 12:05 Capillary blood glucose measurement by glucometer (mas s/volume) 147 mg/dL 70-110 Capillary blood glucose measurement by g lucometer (mass/volume) - 06/17/19 17:33 Capillary blood glucose measurement by glucometer (mas s/volume) 123 mg/dL 70-110 Capillary blood glucose measurement by g lucometer (mass/volume) - 06/18/19 05:05 Capillary blood glucose measurement by glucometer (mas s/volume) 113 mg/dL 70-110 Complete blood count (CBC) with automate d white blood cell (WBC) differential - 06/18/19 05:05 Blood leukocytes automated count (number/volume) 9.7 10*3/uL 4.3-11.0 Blood erythrocytes automated count (number/volume) 3.61 10*6/uL 4.35-5.85 Venous blood hemoglobin measurement (mass/volume) 7.4 g/dL 11.5-16.0 Blood hematocrit (volume fraction) 27 % 35-52 Automated erythrocyte mean corpuscular volume 73 [ foz_us] 80-99 Automated erythrocyte mean corpuscular h emoglobin (mass per erythrocyte) 20 pg 25-34 Automated erythrocyte mean corpuscular h emoglobin concentration measurement (mass/volume) 28 g/dL 32-36 Automated erythrocyte distribution width ratio 19. 2 % 10.0- 14.5 Automated blood platelet count (count/volume) 263 10*3/uL 130-400 Automated blood platelet mean volume measurement 10.9 [foz_us] 7.4-10.4 Automated blood neutrophils/100 leukocytes 72 % 42-75 Automated blood lymphocytes/100 leukocytes 12 % 12-44 Blood monocytes/100 leukocytes 12 % 0-12 Automated blood eosinophils/100 leukocytes 4 % 0-10 Automated blood basophils/100 leukocytes 0 % 0-10 Blood neutrophils automated count (number/volume) 7.0 10*3 1.8-7.8 Blood lymphocytes automated count (number/volume) 1.2 10*3 1.0-4.0 Blood monocytes automated count (number/volume) 1. 1 10*3 0.0-1.0 Automated eosinophil count 0.4 10*3/uL 0 .0-0.3 Automated blood basophil count (count/volume) 0.0 10*3/uL 0.0-0.1 Comprehensive metabolic panel - 06/18/19 05:05 Serum or plasma sodium measurement (moles/volume) 144 mmol/L 135-145 Serum or plasma potassium measurement (moles/volume) 4.0 mmol/L 3.6-5.0 Serum or plasma chloride measurement (moles/volume) 109 mmol/L 98-107 Carbon dioxide 26 mmol/L 21-32 Serum or plasma anion gap determination (moles/volume) 9 mmol/L 5-14 Serum or plasma urea nitrogen measurement (mass/volume ) 7 mg/dL 7-18 Serum or plasma creatinine measurement (mass/volume) 0.67 mg/dL 0.60-1.30 Serum or plasma urea nitrogen/creatinine mass ratio 10 NRG Serum or plasma creatinine measurement w ith calculation of estimated glomerular filtration rate > NRG Serum or plasma glucose measurement (mass/volume) 93 mg/dL 70-105 Serum or plasma calcium measurement (mass/volume) 8.3 mg/dL 8.5-10.1 Serum or plasma total bilirubin measurement (mass/volu me) 0.1 mg/dL 0.1-1.0 Serum or plasma alkaline phosphatase mireya surement (enzymatic activity/volume) 125 U/L 40-136 Serum or plasma aspartate aminotransfera se measurement (enzymatic activity/volume) 19 U/L 5-34 Serum or plasma alanine aminotransferase measurement (enzymatic activity/volume) 10 U/L 0-55 Serum or plasma protein measurement (mass/volume) 5.2 g/dL 6.4-8.2 Serum or plasma albumin measurement (mass/volume) 2.3 g/dL 3.2-4.5 CALCIUM CORRECTED 9.7 mg/dL 8.5-10.1 Serum or plasma phosphate measurement (m ass/volume) - 06/18/19 05:05 Serum or plasma phosphate measurement (mass/volume) 3.0 mg/dL 2.3-4.7 Magnesium - 06/18/19 05:05 Magnesium 1.4 mg/dL 1.8-2.4 Capillary blood glucose measurement by g lucometer (mass/volume) - 06/18/19 11:34 Capillary blood glucose measurement by glucometer (mas s/volume) 154 mg/dL 70-110 Capillary blood glucose measurement by g lucometer (mass/volume) - 06/18/19 18:05 Capillary blood glucose measurement by glucometer (mas s/volume) 172 mg/dL 70-110 Capillary blood glucose measurement by g lucometer (mass/volume) - 06/18/19 23:55 Capillary blood glucose measurement by glucometer (mas s/volume) 110 mg/dL 70-110 Complete blood count (CBC) with automate d white blood cell (WBC) differential - 06/19/19 04:50 Blood leukocytes automated count (number/volume) 11.2 10*3/uL 4.3-11.0 Blood erythrocytes automated count (number/volume) 4.07 10*6/uL 4.35-5.85 Venous blood hemoglobin measurement (mass/volume) 8.2 g/dL 11.5-16.0 Blood hematocrit (volume fraction) 30 % 35-52 Automated erythrocyte mean corpuscular volume 73 [ foz_us] 80-99 Automated erythrocyte mean corpuscular h emoglobin (mass per erythrocyte) 20 pg 25-34 Automated erythrocyte mean corpuscular h emoglobin concentration measurement (mass/volume) 28 g/dL 32-36 Automated erythrocyte distribution width ratio 20. 0 % 10.0- 14.5 Automated blood platelet count (count/volume) 330 10*3/uL 130-400 Automated blood platelet mean volume measurement 10.8 [foz_us] 7.4-10.4 Automated blood neutrophils/100 leukocytes 69 % 42-75 Automated blood lymphocytes/100 leukocytes 16 % 12-44 Blood monocytes/100 leukocytes 10 % 0-12 Automated blood eosinophils/100 leukocytes 4 % 0-10 Automated blood basophils/100 leukocytes 0 % 0-10 Blood neutrophils automated count (number/volume) 7.7 10*3 1.8-7.8 Blood lymphocytes automated count (number/volume) 1.8 10*3 1.0-4.0 Blood monocytes automated count (number/volume) 1. 2 10*3 0.0-1.0 Automated eosinophil count 0.5 10*3/uL 0 .0-0.3 Automated blood basophil count (count/volume) 0.0 10*3/uL 0.0-0.1 Comprehensive metabolic panel - 06/19/19 04:50 Serum or plasma sodium measurement (moles/volume) 142 mmol/L 135-145 Serum or plasma potassium measurement (moles/volume) 4.4 mmol/L 3.6-5.0 Serum or plasma chloride measurement (moles/volume) 105 mmol/L 98-107 Carbon dioxide 27 mmol/L 21-32 Serum or plasma anion gap determination (moles/volume) 10 mmol/L 5-14 Serum or plasma urea nitrogen measurement (mass/volume ) 8 mg/dL 7-18 Serum or plasma creatinine measurement (mass/volume) 0.66 mg/dL 0.60-1.30 Serum or plasma urea nitrogen/creatinine mass ratio 12 NRG Serum or plasma creatinine measurement w ith calculation of estimated glomerular filtration rate > NRG Serum or plasma glucose measurement (mass/volume) 100 mg/dL 70-105 Serum or plasma calcium measurement (mass/volume) 9.1 mg/dL 8.5-10.1 Serum or plasma total bilirubin measurement (mass/volu me) 0.1 mg/dL 0.1-1.0 Serum or plasma alkaline phosphatase mireya surement (enzymatic activity/volume) 111 U/L 40-136 Serum or plasma aspartate aminotransfera se measurement (enzymatic activity/volume) 14 U/L 5-34 Serum or plasma alanine aminotransferase measurement (enzymatic activity/volume) 11 U/L 0-55 Serum or plasma protein measurement (mass/volume) 5.7 g/dL 6.4-8.2 Serum or plasma albumin measurement (mass/volume) 2.5 g/dL 3.2-4.5 CALCIUM CORRECTED 10.3 mg/dL 8.5-10.1 Capillary blood glucose measurement by g lucometer (mass/volume) - 06/19/19 05:36 Capillary blood glucose measurement by glucometer (mas s/volume) 133 mg/dL 70-110 Capillary blood glucose measurement by g lucometer (mass/volume) - 06/19/19 10:52 Capillary blood glucose measurement by glucometer (mas s/volume) 128 mg/dL 70-110 Capillary blood glucose measurement by g lucometer (mass/volume) - 06/19/19 16:17 Capillary blood glucose measurement by glucometer (mas s/volume) 100 mg/dL 70-110 Capillary blood glucose measurement by g lucometer (mass/volume) - 06/19/19 21:05 Capillary blood glucose measurement by glucometer (mas s/volume) 120 mg/dL 70-110 Capillary blood glucose measurement by g lucometer (mass/volume) - 06/20/19 05:52 Capillary blood glucose measurement by glucometer (mas s/volume) 103 mg/dL 70-110 Capillary blood glucose measurement by g lucometer (mass/volume) - 06/20/19 11:01 Capillary blood glucose measurement by glucometer (mas s/volume) 115 mg/dL 70-110 Serum or plasma lithium measurement (mol es/volume) - 06/20/19 16:04 BNP PT 28.8 pg/mL <100.0 Capillary blood glucose measurement by g lucometer (mass/volume) - 06/20/19 16:27 Capillary blood glucose measurement by glucometer (mas s/volume) 111 mg/dL 70-110 Capillary blood glucose measurement by g lucometer (mass/volume) - 06/20/19 20:35 Capillary blood glucose measurement by glucometer (mas s/volume) 110 mg/dL 70-110 Capillary blood glucose measurement by g lucometer (mass/volume) - 06/21/19 05:28 Capillary blood glucose measurement by glucometer (mas s/volume) 108 mg/dL 70-110 Automated blood complete blood count (he mogram) panel - 06/21/19 06:05 Blood leukocytes automated count (number/volume) 10.3 10*3/uL 4.3-11.0 Blood erythrocytes automated count (number/volume) 3.77 10*6/uL 4.35-5.85 Venous blood hemoglobin measurement (mass/volume) 7.5 g/dL 11.5-16.0 Blood hematocrit (volume fraction) 28 % 35-52 Automated erythrocyte mean corpuscular volume 75 [ foz_us] 80-99 Automated erythrocyte mean corpuscular h emoglobin (mass per erythrocyte) 20 pg 25-34 Automated erythrocyte mean corpuscular h emoglobin concentration measurement (mass/volume) 27 g/dL 32-36 Automated erythrocyte distribution width ratio 20. 8 % 10.0- 14.5 Automated blood platelet count (count/volume) 345 10*3/uL 130-400 Automated blood platelet mean volume measurement 11.4 [foz_us] 7.4-10.4 Comprehensive metabolic panel - 06/21/19 06:05 Serum or plasma sodium measurement (moles/volume) 139 mmol/L 135-145 Serum or plasma potassium measurement (moles/volume) 4.3 mmol/L 3.6-5.0 Serum or plasma chloride measurement (moles/volume) 101 mmol/L 98-107 Carbon dioxide 30 mmol/L 21-32 Serum or plasma anion gap determination (moles/volume) 8 mmol/L 5-14 Serum or plasma urea nitrogen measurement (mass/volume ) 9 mg/dL 7-18 Serum or plasma creatinine measurement (mass/volume) 0.72 mg/dL 0.60-1.30 Serum or plasma urea nitrogen/creatinine mass ratio 13 NRG Serum or plasma creatinine measurement w ith calculation of estimated glomerular filtration rate > NRG Serum or plasma glucose measurement (mass/volume) 90 mg/dL 70-105 Serum or plasma calcium measurement (mass/volume) 8.7 mg/dL 8.5-10.1 Serum or plasma total bilirubin measurement (mass/volu me) 0.2 mg/dL 0.1-1.0 Serum or plasma alkaline phosphatase mireya surement (enzymatic activity/volume) 92 U/L 40-136 Serum or plasma aspartate aminotransfera se measurement (enzymatic activity/volume) 13 U/L 5-34 Serum or plasma alanine aminotransferase measurement (enzymatic activity/volume) 9 U/L 0-55 Serum or plasma protein measurement (mass/volume) 5.6 g/dL 6.4-8.2 Serum or plasma albumin measurement (mass/volume) 2.4 g/dL 3.2-4.5 CALCIUM CORRECTED 10.0 mg/dL 8.5-10.1 Capillary blood glucose measurement by g lucometer (mass/volume) - 06/21/19 11:51 Capillary blood glucose measurement by glucometer (mas s/volume) 197 mg/dL 70-110 RED CELLS LEUKO REDUCED AS1 - 06/21/19 1 2:05 RED CELLS LEUKO REDUCED AS1 T RANSFUSED 06/21/19 2224 NRG Blood type T Indirect antibody screen [place] - 06/21/19 12:05 WRISTBAND NUMBER [id number] NRG ABO+Rh group BP NRG Blood group antibody screen NEGATIVE NR G Blood lactic acid measurement (moles/vol ume) - 06/21/19 14:05 Blood lactic acid measurement (moles/volume) 2.09 mmol/L 0.50-2.00 Bacterial blood culture - 06/21/19 14:05 Bacterial blood culture NG NRG Capillary blood glucose measurement by g lucometer (mass/volume) - 06/21/19 16:11 Capillary blood glucose measurement by glucometer (mas s/volume) 117 mg/dL 70-110 Serum or plasma lactate measurement (mol es/volume) - 06/21/19 16:24 Serum or plasma lactate measurement (moles/volume) 1.13 mmol/L 0.50-2.00 Capillary blood glucose measurement by g lucometer (mass/volume) - 06/21/19 20:29 Capillary blood glucose measurement by glucometer (mas s/volume) 126 mg/dL 70-110 Automated blood complete blood count ( mogram) panel - 06/22/19 05:16 Blood leukocytes automated count (number/volume) 10.4 10*3/uL 4.3-11.0 Blood erythrocytes automated count (number/volume) 4.42 10*6/uL 4.35-5.85 Venous blood hemoglobin measurement (mass/volume) 9.3 g/dL 11.5-16.0 Blood hematocrit (volume fraction) 33 % 35-52 Automated erythrocyte mean corpuscular volume 75 [ foz_us] 80-99 Automated erythrocyte mean corpuscular h emoglobin (mass per erythrocyte) 21 pg 25-34 Automated erythrocyte mean corpuscular h emoglobin concentration measurement (mass/volume) 28 g/dL 32-36 Automated erythrocyte distribution width ratio 20. 1 % 10.0- 14.5 Automated blood platelet count (count/volume) 427 10*3/uL 130-400 Automated blood platelet mean volume measurement 11.0 [foz_us] 7.4-10.4 Whole blood basic metabolic panel - 05/31 03/18 05:16 Serum or plasma sodium measurement (moles/volume) 141 mmol/L 135-145 Serum or plasma potassium measurement (moles/volume) 4.3 mmol/L 3.6-5.0 Serum or plasma chloride measurement (moles/volume) 102 mmol/L 98-107 Carbon dioxide 29 mmol/L 21-32 Serum or plasma anion gap determination (moles/volume) 10 mmol/L 5-14 Serum or plasma urea nitrogen measurement (mass/volume ) 9 mg/dL 7-18 Serum or plasma creatinine measurement (mass/volume) 0.73 mg/dL 0.60-1.30 Serum or plasma urea nitrogen/creatinine mass ratio 12 NRG Serum or plasma creatinine measurement w ith calculation of estimated glomerular filtration rate > NRG Serum or plasma glucose measurement (mass/volume) 87 mg/dL 70-105 Serum or plasma calcium measurement (mass/volume) 8.8 mg/dL 8.5-10.1 Capillary blood glucose measurement by g lucometer (mass/volume) - 06/22/19 05:55 Capillary blood glucose measurement by glucometer (mas s/volume) 97 mg/dL 70-110 Capillary blood glucose measurement by g lucometer (mass/volume) - 06/22/19 10:57 Capillary blood glucose measurement by glucometer (mas s/volume) 124 mg/dL 70-110 Capillary blood glucose measurement by g lucometer (mass/volume) - 06/22/19 16:43 Capillary blood glucose measurement by glucometer (mas s/volume) 122 mg/dL 70-110 Capillary blood glucose measurement by g lucometer (mass/volume) - 06/22/19 21:01 Capillary blood glucose measurement by glucometer (mas s/volume) 121 mg/dL 70-110 Automated blood complete blood count (he mogram) panel - 06/23/19 04:55 Blood leukocytes automated count (number/volume) 9.2 10*3/uL 4.3-11.0 Blood erythrocytes automated count (number/volume) 4.32 10*6/uL 4.35-5.85 Venous blood hemoglobin measurement (mass/volume) 9.3 g/dL 11.5-16.0 Blood hematocrit (volume fraction) 33 % 35-52 Automated erythrocyte mean corpuscular volume 77 [ foz_us] 80-99 Automated erythrocyte mean corpuscular h emoglobin (mass per erythrocyte) 22 pg 25-34 Automated erythrocyte mean corpuscular h emoglobin concentration measurement (mass/volume) 28 g/dL 32-36 Automated erythrocyte distribution width ratio 20. 7 % 10.0- 14.5 Automated blood platelet count (count/volume) 446 10*3/uL 130-400 Automated blood platelet mean volume measurement 11.2 [foz_us] 7.4-10.4 Whole blood basic metabolic panel - 05/31 04/17 04:55 Serum or plasma sodium measurement (moles/volume) 142 mmol/L 135-145 Serum or plasma potassium measurement (moles/volume) 4.6 mmol/L 3.6-5.0 Serum or plasma chloride measurement (moles/volume) 102 mmol/L 98-107 Carbon dioxide 30 mmol/L 21-32 Serum or plasma anion gap determination (moles/volume) 10 mmol/L 5-14 Serum or plasma urea nitrogen measurement (mass/volume ) 12 mg/dL 7-18 Serum or plasma creatinine measurement (mass/volume) 0.72 mg/dL 0.60-1.30 Serum or plasma urea nitrogen/creatinine mass ratio 17 NRG Serum or plasma creatinine measurement w ith calculation of estimated glomerular filtration rate > NRG Serum or plasma glucose measurement (mass/volume) 81 mg/dL 70-105 Serum or plasma calcium measurement (mass/volume) 9.1 mg/dL 8.5-10.1 Capillary blood glucose measurement by g lucometer (mass/volume) - 06/23/19 05:30 Capillary blood glucose measurement by glucometer (mas s/volume) 138 mg/dL 70-110 Capillary blood glucose measurement by g lucometer (mass/volume) - 06/23/19 11:41 Capillary blood glucose measurement by glucometer (mas s/volume) 114 mg/dL 70-110 Capillary blood glucose measurement by g lucometer (mass/volume) - 06/23/19 16:36 Capillary blood glucose measurement by glucometer (mas s/volume) 112 mg/dL 70-110 Complete blood count (CBC) with automate d white blood cell (WBC) differential - 06/24/19 10:14 Blood leukocytes automated count (number/volume) 9.4 10*3/uL 4.3-11.0 Blood erythrocytes automated count (number/volume) 4.53 10*6/uL 4.35-5.85 Venous blood hemoglobin measurement (mass/volume) 9.5 g/dL 11.5-16.0 Blood hematocrit (volume fraction) 34 % 35-52 Automated erythrocyte mean corpuscular volume 76 [ foz_us] 80-99 Automated erythrocyte mean corpuscular h emoglobin (mass per erythrocyte) 21 pg 25-34 Automated erythrocyte mean corpuscular h emoglobin concentration measurement (mass/volume) 28 g/dL 32-36 Automated erythrocyte distribution width ratio 20. 7 % 10.0- 14.5 Automated blood platelet count (count/volume) 473 10*3/uL 130-400 Automated blood platelet mean volume measurement 10.3 [foz_us] 7.4-10.4 Automated blood neutrophils/100 leukocytes 77 % 42-75 Automated blood lymphocytes/100 leukocytes 12 % 12-44 Blood monocytes/100 leukocytes 9 % 0-12 Automated blood eosinophils/100 leukocytes 2 % 0-10 Automated blood basophils/100 leukocytes 0 % 0-10 Blood neutrophils automated count (number/volume) 7.3 10*3 1.8-7.8 Blood lymphocytes automated count (number/volume) 1.1 10*3 1.0-4.0 Blood monocytes automated count (number/volume) 0. 8 10*3 0.0-1.0 Automated eosinophil count 0.2 10*3/uL 0 .0-0.3 Automated blood basophil count (count/volume) 0.0 10*3/uL 0.0-0.1 Comprehensive metabolic panel - 06/24/19 10:14 Serum or plasma sodium measurement (moles/volume) 140 mmol/L 135-145 Serum or plasma potassium measurement (moles/volume) 4.5 mmol/L 3.6-5.0 Serum or plasma chloride measurement (moles/volume) 102 mmol/L 98-107 Carbon dioxide 27 mmol/L 21-32 Serum or plasma anion gap determination (moles/volume) 11 mmol/L 5-14 Serum or plasma urea nitrogen measurement (mass/volume ) 11 mg/dL 7-18 Serum or plasma creatinine measurement (mass/volume) 0.79 mg/dL 0.60-1.30 Serum or plasma urea nitrogen/creatinine mass ratio 14 NRG Serum or plasma creatinine measurement w ith calculation of estimated glomerular filtration rate > NRG Serum or plasma glucose measurement (mass/volume) 114 mg/dL 70-105 Serum or plasma calcium measurement (mass/volume) 9.0 mg/dL 8.5-10.1 Serum or plasma total bilirubin measurement (mass/volu me) 0.3 mg/dL 0.1-1.0 Serum or plasma alkaline phosphatase mireya surement (enzymatic activity/volume) 97 U/L 40-136 Serum or plasma aspartate aminotransfera se measurement (enzymatic activity/volume) 18 U/L 5-34 Serum or plasma alanine aminotransferase measurement (enzymatic activity/volume) 8 U/L 0-55 Serum or plasma protein measurement (mass/volume) 6.5 g/dL 6.4-8.2 Serum or plasma albumin measurement (mass/volume) 2.6 g/dL 3.2-4.5 CALCIUM CORRECTED 10.1 mg/dL 8.5-10.1 Magnesium - 06/24/19 10:14 Magnesium 1.9 mg/dL 1.8-2.4 Lipase - 06/24/19 10:14 Lipase 16 U/L 8-78 Serum or plasma C reactive protein measu rement (mass/volume) - 06/24/19 10:14 Serum or plasma C reactive protein measurement (mass/v olume) 4.94 mg/dL 0.00-0.50 THYROID STIMULATING HORMONE - 06/24/19 1 0:41 THYROID STIMULATING HORMONE 7.14 u[iU]/mL 0.35-4.94 Serum or plasma thyroxine (T4) free dylan urement (mass/volume) - 06/24/19 10:41 Serum or plasma thyroxine (T4) free measurement (mass/ volume) 0.95 ng/dL 0.70-1.48 Complete urinalysis with reflex to cultu re - 06/24/19 13:02 Urine color determination YELLOW NRG Urine clarity determination CLEAR NR G Urine pH measurement by test strip 8 5-9 Specific gravity of urine by test strip 1.010 1.016-1.022 Urine protein assay by test strip, semi-quantitative NEGATIVE NEGATIVE Urine glucose detection by automated test strip NE GATIVE NEGATIVE Erythrocytes detection in urine sediment by light micr oscopy NEGATIVE NEGATIVE Urine ketones detection by automated test strip NE GATIVE NEGATIVE Urine nitrite detection by test strip NEGATIVE NEGATIVE Urine total bilirubin detection by test strip NEGA TIVE NEGATIVE Urine urobilinogen measurement by automated test strip (mass/volume) NORMAL NORMAL Urine leukocyte esterase detection by dipstick 1+ NEGATIVE Automated urine sediment erythrocyte cou nt by microscopy (number/high power field) NONE NRG Automated urine sediment leukocyte count by microscopy (number/high power field) RARE NRG Bacteria detection in urine sediment by light microsco py NEGATIVE NRG Squamous epithelial cells detection in u rine sediment by light microscopy 2-5 NRG Crystals detection in urine sediment by light microsco py NONE NRG Casts detection in urine sediment by light microscopy NONE NRG Mucus detection in urine sediment by light microscopy NEGATIVE NRG Complete urinalysis with reflex to culture NO NRG Complete blood count (CBC) with automate d white blood cell (WBC) differential - 06/30/19 18:05 Blood leukocytes automated count (number/volume) 10.6 10*3/uL 4.3-11.0 Blood erythrocytes automated count (number/volume) 4.72 10*6/uL 4.35-5.85 Venous blood hemoglobin measurement (mass/volume) 10.1 g/dL 11.5-16.0 Blood hematocrit (volume fraction) 36 % 35-52 Automated erythrocyte mean corpuscular volume 77 [ foz_us] 80-99 Automated erythrocyte mean corpuscular h emoglobin (mass per erythrocyte) 21 pg 25-34 Automated erythrocyte mean corpuscular h emoglobin concentration measurement (mass/volume) 28 g/dL 32-36 Automated erythrocyte distribution width ratio 21. 0 % 10.0- 14.5 Automated blood platelet count (count/volume) 644 10*3/uL 130-400 Automated blood platelet mean volume measurement 10.0 [foz_us] 7.4-10.4 Automated blood neutrophils/100 leukocytes 60 % 42-75 Automated blood lymphocytes/100 leukocytes 20 % 12-44 Blood monocytes/100 leukocytes 18 % 0-12 Automated blood eosinophils/100 leukocytes 2 % 0-10 Automated blood basophils/100 leukocytes 0 % 0-10 Blood neutrophils automated count (number/volume) 6.3 10*3 1.8-7.8 Blood lymphocytes automated count (number/volume) 2.2 10*3 1.0-4.0 Blood monocytes automated count (number/volume) 1. 9 10*3 0.0-1.0 Automated eosinophil count 0.2 10*3/uL 0 .0-0.3 Automated blood basophil count (count/volume) 0.0 10*3/uL 0.0-0.1 Blood lactic acid measurement (moles/vol ume) - 06/30/19 18:05 Blood lactic acid measurement (moles/volume) 1.10 mmol/L 0.50-2.00 Comprehensive metabolic panel - 06/30/19 18:05 Serum or plasma sodium measurement (moles/volume) 142 mmol/L 135-145 Serum or plasma potassium measurement (moles/volume) 4.2 mmol/L 3.6-5.0 Serum or plasma chloride measurement (moles/volume) 108 mmol/L 98-107 Carbon dioxide 24 mmol/L 21-32 Serum or plasma anion gap determination (moles/volume) 10 mmol/L 5-14 Serum or plasma urea nitrogen measurement (mass/volume ) 17 mg/dL 7-18 Serum or plasma creatinine measurement (mass/volume) 0.84 mg/dL 0.60-1.30 Serum or plasma urea nitrogen/creatinine mass ratio 20 NRG Serum or plasma creatinine measurement w ith calculation of estimated glomerular filtration rate > NRG Serum or plasma glucose measurement (mass/volume) 109 mg/dL 70-105 Serum or plasma calcium measurement (mass/volume) 8.3 mg/dL 8.5-10.1 Serum or plasma total bilirubin measurement (mass/volu me) 0.2 mg/dL 0.1-1.0 Serum or plasma alkaline phosphatase mireya surement (enzymatic activity/volume) 87 U/L 40-136 Serum or plasma aspartate aminotransfera se measurement (enzymatic activity/volume) 13 U/L 5-34 Serum or plasma alanine aminotransferase measurement (enzymatic activity/volume) 8 U/L 0-55 Serum or plasma protein measurement (mass/volume) 6.5 g/dL 6.4-8.2 Serum or plasma albumin measurement (mass/volume) 2.5 g/dL 3.2-4.5 CALCIUM CORRECTED 9.5 mg/dL 8.5-10.1 Serum or plasma lithium measurement (mol es/volume) - 06/30/19 18:05 BNP PT 94.7 pg/mL <100.0 Bacterial blood culture - 06/30/19 18:05 Bacterial blood culture NG NRG Arterial blood gas measurement - 9 18:20 Blood pCO2 51 mm[Hg] 35-45 Blood pO2 66 mm[Hg] 79-93 Arterial blood bicarbonate measurement (moles/volume) 25 mmol/L 23-27 Arterial blood base excess by calculation 0.1 mmol /L -2.5-2.5 Arterial blood oxygen saturation measurement 92 % 94-100 * Inhaled oxygen flow rate N/A NRG Arterial blood pH measurement with patient temperature correction 7.32 7.37-7.43 Arterial blood carbon dioxide, total measurement (mole s/volume) 26.6 mmol/L 21.0-31.0 Body site RIGHT RADIAL NRG Assessment of wrist artery patency prior to arterial p uncture POSITIVE NRG Setting of ventilation mode NO NR G Measurement of body temperature 100.6 NRG Bacterial blood culture - 06/30/19 18:25 Bacterial blood culture NG NRG Complete blood count (CBC) with automate d white blood cell (WBC) differential - 07/17/19 13:32 Blood leukocytes automated count (number/volume) 27.3 10*3/uL 4.3-11.0 Blood erythrocytes automated count (number/volume) 5.22 10*6/uL 4.35-5.85 Venous blood hemoglobin measurement (mass/volume) 11.3 g/dL 11.5-16.0 Blood hematocrit (volume fraction) 37 % 35-52 Automated erythrocyte mean corpuscular volume 71 [ foz_us] 80-99 Automated erythrocyte mean corpuscular h emoglobin (mass per erythrocyte) 22 pg 25-34 Automated erythrocyte mean corpuscular h emoglobin concentration measurement (mass/volume) 30 g/dL 32-36 Automated erythrocyte distribution width ratio 22. 6 % 10.0- 14.5 Automated blood platelet count (count/volume) 497 10*3/uL 130-400 Automated blood platelet mean volume measurement 10.5 [foz_us] 7.4-10.4 Automated blood neutrophils/100 leukocytes 86 % 42-75 Automated blood lymphocytes/100 leukocytes 5 % 12-44 Blood monocytes/100 leukocytes 8 % 0-12 Automated blood eosinophils/100 leukocytes 0 % 0-10 Automated blood basophils/100 leukocytes 0 % 0-10 Blood neutrophils automated count (number/volume) 23.4 10*3 1.8-7.8 Blood lymphocytes automated count (number/volume) 1.5 10*3 1.0-4.0 Blood monocytes automated count (number/volume) 2. 3 10*3 0.0-1.0 Automated eosinophil count 0.1 10*3/uL 0 .0-0.3 Automated blood basophil count (count/volume) 0.0 10*3/uL 0.0-0.1 Comprehensive metabolic panel - 07/17/19 13:32 Serum or plasma sodium measurement (moles/volume) 134 mmol/L 135-145 Serum or plasma potassium measurement (moles/volume) 5.1 mmol/L 3.6-5.0 Serum or plasma chloride measurement (moles/volume) 104 mmol/L 98-107 Carbon dioxide 17 mmol/L 21-32 Serum or plasma anion gap determination (moles/volume) 13 mmol/L 5-14 Serum or plasma urea nitrogen measurement (mass/volume ) 37 mg/dL 7-18 Serum or plasma creatinine measurement (mass/volume) 1.24 mg/dL 0.60-1.30 Serum or plasma urea nitrogen/creatinine mass ratio 30 NRG Serum or plasma creatinine measurement w ith calculation of estimated glomerular filtration rate 45 NRG Serum or plasma glucose measurement (mass/volume) 179 mg/dL 70-105 Serum or plasma calcium measurement (mass/volume) 8.6 mg/dL 8.5-10.1 Serum or plasma total bilirubin measurement (mass/volu me) 0.5 mg/dL 0.1-1.0 Serum or plasma alkaline phosphatase mireya surement (enzymatic activity/volume) 128 U/L 40-136 Serum or plasma aspartate aminotransfera se measurement (enzymatic activity/volume) 11 U/L 5-34 Serum or plasma alanine aminotransferase measurement (enzymatic activity/volume) 8 U/L 0-55 Serum or plasma protein measurement (mass/volume) 6.9 g/dL 6.4-8.2 Serum or plasma albumin measurement (mass/volume) 2.7 g/dL 3.2-4.5 CALCIUM CORRECTED 9.6 mg/dL 8.5-10.1 Lipase - 07/17/19 13:32 Lipase 4 U/L 8-78 Manual absolute plasma cell count - 06/30 07/18 13:32 Blood monocytes/100 leukocytes 3 % NRG Manual blood segmented neutrophils/100 leukocytes 90 % NRG Manual blood lymphocytes/100 leukocytes 7 % NRG Blood polychromasia detection by light microscopy SLIGHT NRG Blood anisocytosis detection by light microscopy S LIGHT NRG Blood hypochromia detection by light microscopy SL IGHT NRG Blood microcytes detection by light microscopy SLI GHT NRG Blood lactic acid measurement (moles/vol ume) - 07/17/19 13:32 Blood lactic acid measurement (moles/volume) 3.95 mmol/L 0.50-2.00 Serum or plasma C reactive protein measu rement (mass/volume) - 07/17/19 13:32 Serum or plasma C reactive protein measurement (mass/v olume) 20.91 mg/dL 0.00-0.50 Bacterial blood culture - 07/17/19 13:32 Bacterial blood culture NG NRG Complete urinalysis with reflex to cultu re - 07/17/19 14:40 Urine color determination YELLOW NRG Urine clarity determination VERY CLOUDY NRG Urine pH measurement by test strip 8 5-9 Specific gravity of urine by test strip 1.010 1.016-1.022 Urine protein assay by test strip, semi-quantitative 2+ NEGATIVE Urine glucose detection by automated test strip NE GATIVE NEGATIVE Erythrocytes detection in urine sediment by light micr oscopy 5+ NEGATIVE Urine ketones detection by automated test strip 1+ NEGATIVE Urine nitrite detection by test strip POSITIVE NEGATIVE Urine total bilirubin detection by test strip 1+ NEGATIVE Urine urobilinogen measurement by automated test strip (mass/volume) NORMAL NORMAL Urine leukocyte esterase detection by dipstick 3+ NEGATIVE Automated urine sediment erythrocyte cou nt by microscopy (number/high power field) NONE NRG Automated urine sediment leukocyte count by microscopy (number/high power field) TNTC NRG Bacteria detection in urine sediment by light microsco py LARGE NRG Crystals detection in urine sediment by light microsco py NONE NRG Casts detection in urine sediment by light microscopy NONE NRG Mucus detection in urine sediment by light microscopy NEGATIVE NRG Complete urinalysis with reflex to culture YES NRG Bacterial urine culture - 07/17/19 14:40 Bacterial urine culture 3 OR MORE NRG COLONY COUNT >100,000/ML NRG FTX;REPORTABLE SUGGESTING PROBABLE COLLECTION NRG FREE TEXT ENTRY 2 CONTAMINATION WITH SKIN ROYCE NRG FREE TEXT ENTRY 3 NO SUSCEPTIBILITY PERFORMED NRG Bacterial blood culture - 07/17/19 15:05 Bacterial blood culture NG NRG Methicillin resistant Staphylococcus aur eus (MRSA) screening culture - 07/17/19 16:30 Methicillin resistant Staphylococcus aureus (MRSA) scr eening culture NEG NRG Capillary blood glucose measurement by g lucometer (mass/volume) - 07/17/19 16:53 Capillary blood glucose measurement by glucometer (mas s/volume) 99 mg/dL 70-110 Serum or plasma lactate measurement (mol es/volume) - 07/17/19 18:50 Serum or plasma lactate measurement (moles/volume) 2.06 mmol/L 0.50-2.00 C DIFFICILE AG + TOXIN A/B. - 07/17/19 2 2:20 RESULTS NEGATIVE FOR ANTIGEN AND TOXIN A/B NRG Complete blood count (CBC) with automate d white blood cell (WBC) differential - 07/18/19 03:16 Blood leukocytes automated count (number/volume) 10.8 10*3/uL 4.3-11.0 Blood erythrocytes automated count (number/volume) 3.92 10*6/uL 4.35-5.85 Venous blood hemoglobin measurement (mass/volume) 8.3 g/dL 11.5-16.0 Blood hematocrit (volume fraction) 29 % 35-52 Automated erythrocyte mean corpuscular volume 73 [ foz_us] 80-99 Automated erythrocyte mean corpuscular h emoglobin (mass per erythrocyte) 21 pg 25-34 Automated erythrocyte mean corpuscular h emoglobin concentration measurement (mass/volume) 29 g/dL 32-36 Automated erythrocyte distribution width ratio 22. 4 % 10.0- 14.5 Automated blood platelet count (count/volume) 308 10*3/uL 130-400 Automated blood platelet mean volume measurement 10.3 [foz_us] 7.4-10.4 Automated blood neutrophils/100 leukocytes 75 % 42-75 Automated blood lymphocytes/100 leukocytes 13 % 12-44 Blood monocytes/100 leukocytes 12 % 0-12 Automated blood eosinophils/100 leukocytes 0 % 0-10 Automated blood basophils/100 leukocytes 0 % 0-10 Blood neutrophils automated count (number/volume) 8.1 10*3 1.8-7.8 Blood lymphocytes automated count (number/volume) 1.4 10*3 1.0-4.0 Blood monocytes automated count (number/volume) 1. 3 10*3 0.0-1.0 Automated eosinophil count 0.0 10*3/uL 0 .0-0.3 Automated blood basophil count (count/volume) 0.0 10*3/uL 0.0-0.1 Blood lactic acid measurement (moles/vol ume) - 07/18/19 03:16 Blood lactic acid measurement (moles/volume) 0.57 mmol/L 0.50-2.00 Whole blood basic metabolic panel - 06/30 08/18 03:16 Serum or plasma sodium measurement (moles/volume) 139 mmol/L 135-145 Serum or plasma potassium measurement (moles/volume) 4.1 mmol/L 3.6-5.0 Serum or plasma chloride measurement (moles/volume) 112 mmol/L 98-107 Carbon dioxide 16 mmol/L 21-32 Serum or plasma anion gap determination (moles/volume) 11 mmol/L 5-14 Serum or plasma urea nitrogen measurement (mass/volume ) 27 mg/dL 7-18 Serum or plasma creatinine measurement (mass/volume) 0.73 mg/dL 0.60-1.30 Serum or plasma urea nitrogen/creatinine mass ratio 37 NRG Serum or plasma creatinine measurement w ith calculation of estimated glomerular filtration rate > NRG Serum or plasma glucose measurement (mass/volume) 79 mg/dL 70-105 Serum or plasma calcium measurement (mass/volume) 7.4 mg/dL 8.5-10.1 Serum or plasma phosphate measurement (m ass/volume) - 07/18/19 03:16 Serum or plasma phosphate measurement (mass/volume) 3.3 mg/dL 2.3-4.7 Magnesium - 07/18/19 03:16 Magnesium 1.5 mg/dL 1.6-2.4 Serum or plasma troponin i.cardiac measu rement (mass/volume) - 07/18/19 10:40 Serum or plasma troponin i.cardiac measurement (mass/v olume) < ng/mL <0.028 Capillary blood glucose measurement by g lucometer (mass/volume) - 07/18/19 11:05 Capillary blood glucose measurement by glucometer (mas s/volume) 116 mg/dL 70-110 Capillary blood glucose measurement by g lucometer (mass/volume) - 07/18/19 16:28 Capillary blood glucose measurement by glucometer (mas s/volume) 114 mg/dL 70-110 Capillary blood glucose measurement by g lucometer (mass/volume) - 07/18/19 20:54 Capillary blood glucose measurement by glucometer (mas s/volume) 123 mg/dL 70-110 Complete blood count (CBC) with automate d white blood cell (WBC) differential - 07/19/19 04:02 Blood leukocytes automated count (number/volume) 4.7 10*3/uL 4.3-11.0 Blood erythrocytes automated count (number/volume) 3.77 10*6/uL 4.35-5.85 Venous blood hemoglobin measurement (mass/volume) 8.0 g/dL 11.5-16.0 Blood hematocrit (volume fraction) 28 % 35-52 Automated erythrocyte mean corpuscular volume 75 [ foz_us] 80-99 Automated erythrocyte mean corpuscular h emoglobin (mass per erythrocyte) 21 pg 25-34 Automated erythrocyte mean corpuscular h emoglobin concentration measurement (mass/volume) 28 g/dL 32-36 Automated erythrocyte distribution width ratio 22. 2 % 10.0- 14.5 Automated blood platelet count (count/volume) 255 10*3/uL 130-400 Automated blood platelet mean volume measurement 10.0 [foz_us] 7.4-10.4 Automated blood neutrophils/100 leukocytes 53 % 42-75 Automated blood lymphocytes/100 leukocytes 25 % 12-44 Blood monocytes/100 leukocytes 16 % 0-12 Automated blood eosinophils/100 leukocytes 5 % 0-10 Automated blood basophils/100 leukocytes 0 % 0-10 Blood neutrophils automated count (number/volume) 2.5 10*3 1.8-7.8 Blood lymphocytes automated count (number/volume) 1.2 10*3 1.0-4.0 Blood monocytes automated count (number/volume) 0. 8 10*3 0.0-1.0 Automated eosinophil count 0.3 10*3/uL 0 .0-0.3 Automated blood basophil count (count/volume) 0.0 10*3/uL 0.0-0.1 Whole blood basic metabolic panel - 07/01 04:02 Serum or plasma sodium measurement (moles/volume) 141 mmol/L 135-145 Serum or plasma potassium measurement (moles/volume) 4.1 mmol/L 3.6-5.0 Serum or plasma chloride measurement (moles/volume) 114 mmol/L 98-107 Carbon dioxide 21 mmol/L 21-32 Serum or plasma anion gap determination (moles/volume) 6 mmol/L 5-14 Serum or plasma urea nitrogen measurement (mass/volume ) 16 mg/dL 7-18 Serum or plasma creatinine measurement (mass/volume) 0.59 mg/dL 0.60-1.30 Serum or plasma urea nitrogen/creatinine mass ratio 27 NRG Serum or plasma creatinine measurement w ith calculation of estimated glomerular filtration rate > NRG Serum or plasma glucose measurement (mass/volume) 88 mg/dL 70-105 Serum or plasma calcium measurement (mass/volume) 7.4 mg/dL 8.5-10.1 Serum or plasma phosphate measurement (m ass/volume) - 07/19/19 04:02 Serum or plasma phosphate measurement (mass/volume) 2.1 mg/dL 2.3-4.7 Magnesium - 07/19/19 04:02 Magnesium 1.8 mg/dL 1.6-2.4 Vancomycin trough - 07/19/19 04:02 Vancomycin trough 13.4 ug/mL 10.0-20.0 Capillary blood glucose measurement by g lucometer (mass/volume) - 07/19/19 11:25 Capillary blood glucose measurement by glucometer (mas s/volume) 98 mg/dL 70-110 Capillary blood glucose measurement by g lucometer (mass/volume) - 07/19/19 16:21 Capillary blood glucose measurement by glucometer (mas s/volume) 130 mg/dL 70-110 Capillary blood glucose measurement by g lucometer (mass/volume) - 07/19/19 21:05 Capillary blood glucose measurement by glucometer (mas s/volume) 95 mg/dL 70-110 Capillary blood glucose measurement by g lucometer (mass/volume) - 07/20/19 05:14 Capillary blood glucose measurement by glucometer (mas s/volume) 89 mg/dL 70-110 Automated blood complete blood count (he mogram) panel - 07/20/19 05:30 Blood leukocytes automated count (number/volume) 5.3 10*3/uL 4.3-11.0 Blood erythrocytes automated count (number/volume) 3.89 10*6/uL 4.35-5.85 Venous blood hemoglobin measurement (mass/volume) 8.2 g/dL 11.5-16.0 Blood hematocrit (volume fraction) 29 % 35-52 Automated erythrocyte mean corpuscular volume 74 [ foz_us] 80-99 Automated erythrocyte mean corpuscular h emoglobin (mass per erythrocyte) 21 pg 25-34 Automated erythrocyte mean corpuscular h emoglobin concentration measurement (mass/volume) 29 g/dL 32-36 Automated erythrocyte distribution width ratio 22. 2 % 10.0- 14.5 Automated blood platelet count (count/volume) 280 10*3/uL 130-400 Automated blood platelet mean volume measurement 9.9 [foz_us] 7.4-10.4 Comprehensive metabolic panel - 07/20/19 05:30 Serum or plasma sodium measurement (moles/volume) 139 mmol/L 135-145 Serum or plasma potassium measurement (moles/volume) 3.8 mmol/L 3.6-5.0 Serum or plasma chloride measurement (moles/volume) 110 mmol/L 98-107 Carbon dioxide 23 mmol/L 21-32 Serum or plasma anion gap determination (moles/volume) 6 mmol/L 5-14 Serum or plasma urea nitrogen measurement (mass/volume ) 7 mg/dL 7-18 Serum or plasma creatinine measurement (mass/volume) 0.52 mg/dL 0.60-1.30 Serum or plasma urea nitrogen/creatinine mass ratio 13 NRG Serum or plasma creatinine measurement w ith calculation of estimated glomerular filtration rate > NRG Serum or plasma glucose measurement (mass/volume) 88 mg/dL 70-105 Serum or plasma calcium measurement (mass/volume) 7.3 mg/dL 8.5-10.1 Serum or plasma total bilirubin measurement (mass/volu me) 0.2 mg/dL 0.1-1.0 Serum or plasma alkaline phosphatase mireya surement (enzymatic activity/volume) 84 U/L 40-136 Serum or plasma aspartate aminotransfera se measurement (enzymatic activity/volume) 14 U/L 5-34 Serum or plasma alanine aminotransferase measurement (enzymatic activity/volume) < U/L 0-55 Serum or plasma protein measurement (mass/volume) 4.8 g/dL 6.4-8.2 Serum or plasma albumin measurement (mass/volume) 1.9 g/dL 3.2-4.5 CALCIUM CORRECTED 9.0 mg/dL 8.5-10.1 Serum or plasma phosphate measurement (m ass/volume) - 07/20/19 05:30 Serum or plasma phosphate measurement (mass/volume) 2.1 mg/dL 2.3-4.7 Magnesium - 07/20/19 05:30 Magnesium 1.0 mg/dL 1.6-2.4 Capillary blood glucose measurement by g lucometer (mass/volume) - 07/20/19 11:06 Capillary blood glucose measurement by glucometer (mas s/volume) 151 mg/dL 70-110 Magnesium - 07/20/19 12:45 Magnesium 1.6 mg/dL 1.6-2.4 Influenza virus A and B antigen detectio n - 08/10/19 11:44 CALL POSITIVES (F1 HELP) CALLED TO [facility] IN ER AT 12 12 NRG FLU RESULT POSITIVE FOR INFLUENZA B ANT IGEN, NEG FOR A ANTIGEN, BY IA NRG Complete blood count (CBC) with automate d white blood cell (WBC) differential - 08/10/19 11:50 Blood leukocytes automated count (number/volume) 10.5 10*3/uL 4.3-11.0 Blood erythrocytes automated count (number/volume) 4.59 10*6/uL 4.35-5.85 Venous blood hemoglobin measurement (mass/volume) 9.6 g/dL 11.5-16.0 Blood hematocrit (volume fraction) 34 % 35-52 Automated erythrocyte mean corpuscular volume 75 [ foz_us] 80-99 Automated erythrocyte mean corpuscular h emoglobin (mass per erythrocyte) 21 pg 25-34 Automated erythrocyte mean corpuscular h emoglobin concentration measurement (mass/volume) 28 g/dL 32-36 Automated erythrocyte distribution width ratio 21. 1 % 10.0- 14.5 Automated blood platelet count (count/volume) 429 10*3/uL 130-400 Automated blood platelet mean volume measurement 9.8 [foz_us] 7.4-10.4 Automated blood neutrophils/100 leukocytes 66 % 42-75 Automated blood lymphocytes/100 leukocytes 21 % 12-44 Blood monocytes/100 leukocytes 12 % 0-12 Automated blood eosinophils/100 leukocytes 1 % 0-10 Automated blood basophils/100 leukocytes 0 % 0-10 Blood neutrophils automated count (number/volume) 6.9 10*3 1.8-7.8 Blood lymphocytes automated count (number/volume) 2.2 10*3 1.0-4.0 Blood monocytes automated count (number/volume) 1. 3 10*3 0.0-1.0 Automated eosinophil count 0.1 10*3/uL 0 .0-0.3 Automated blood basophil count (count/volume) 0.0 10*3/uL 0.0-0.1 Magnesium - 08/10/19 11:50 Magnesium 1.8 mg/dL 1.6-2.4 Comprehensive metabolic panel - 08/10/19 11:50 Serum or plasma sodium measurement (moles/volume) 141 mmol/L 135-145 Serum or plasma potassium measurement (moles/volume) 4.1 mmol/L 3.6-5.0 Serum or plasma chloride measurement (moles/volume) 104 mmol/L 98-107 Carbon dioxide 27 mmol/L 21-32 Serum or plasma anion gap determination (moles/volume) 10 mmol/L 5-14 Serum or plasma urea nitrogen measurement (mass/volume ) 17 mg/dL 7-18 Serum or plasma creatinine measurement (mass/volume) 0.70 mg/dL 0.60-1.30 Serum or plasma urea nitrogen/creatinine mass ratio 24 NRG Serum or plasma creatinine measurement w ith calculation of estimated glomerular filtration rate > NRG Serum or plasma glucose measurement (mass/volume) 82 mg/dL 70-105 Serum or plasma calcium measurement (mass/volume) 8.2 mg/dL 8.5-10.1 Serum or plasma total bilirubin measurement (mass/volu me) 0.3 mg/dL 0.1-1.0 Serum or plasma alkaline phosphatase mireya surement (enzymatic activity/volume) 82 U/L 40-136 Serum or plasma aspartate aminotransfera se measurement (enzymatic activity/volume) 12 U/L 5-34 Serum or plasma alanine aminotransferase measurement (enzymatic activity/volume) 9 U/L 0-55 Serum or plasma protein measurement (mass/volume) 6.5 g/dL 6.4-8.2 Serum or plasma albumin measurement (mass/volume) 2.9 g/dL 3.2-4.5 CALCIUM CORRECTED 9.1 mg/dL 8.5-10.1 Serum iron and total iron binding capaci ty panel - 08/10/19 11:50 TIBC 321 % 280-380 UIBC 306 % 55-450 Serum or plasma iron measurement (mass/volume) 15 % 35-180 Total iron binding capacity and transferrin saturation measurement 5 % 15-50 Serum or plasma ferritin measurement (mass/volume) 31.7 % 20.0-177.0 Bacterial blood culture - 08/10/19 13:43 Bacterial blood culture NG NRG Blood lactic acid measurement (moles/vol ume) - 08/10/19 13:53 Blood lactic acid measurement (moles/volume) 0.78 mmol/L 0.50-2.00 Bacterial blood culture - 08/10/19 13:53 Bacterial blood culture NG NRG Complete urinalysis with reflex to cultu re - 08/10/19 14:05 Urine color determination YELLOW NRG Urine clarity determination VERY CLOUDY NRG Urine pH measurement by test strip 6.5 5-9 Specific gravity of urine by test strip 1.010 1.016-1.022 Urine protein assay by test strip, semi-quantitative 2+ NEGATIVE Urine glucose detection by automated test strip NE GATIVE NEGATIVE Erythrocytes detection in urine sediment by light micr oscopy 2+ NEGATIVE Urine ketones detection by automated test strip NE GATIVE NEGATIVE Urine nitrite detection by test strip NEGATIVE NEGATIVE Urine total bilirubin detection by test strip NEGA TIVE NEGATIVE Urine urobilinogen measurement by automated test strip (mass/volume) NORMAL NORMAL Urine leukocyte esterase detection by dipstick 3+ NEGATIVE Automated urine sediment erythrocyte cou nt by microscopy (number/high power field) [HPF] NRG Automated urine sediment leukocyte count by microscopy (number/high power field) TNTC NRG Bacteria detection in urine sediment by light microsco py LARGE NRG Crystals detection in urine sediment by light microsco py NONE NRG Casts detection in urine sediment by light microscopy NONE NRG Mucus detection in urine sediment by light microscopy NEGATIVE NRG Complete urinalysis with reflex to culture YES NRG Bacterial urine culture - 08/10/19 14:05 Bacterial urine culture [id number] NRG COLONY COUNT >100,000/ML NRG FTX;REPORTABLE SUSCEPTIBILITY REPORTED 08/12 10:00 NRG FREE TEXT ENTRY 2 ID REPORTED 08/11/19 15:05 NRG Dirithromycin susceptibility test by dis k diffusion - 08/10/19 14:05 Gentamicin susceptibility test by minimum inhibitory c oncentration <= NRG Trimethoprim/sulfamethoxazole susceptibi lity test by minimum inhibitoryconcentration <= NRG Levofloxacin susceptibility test by minimum inhibitory concentration <= NRG Ampicillin susceptibility test by minimum inhibitory c oncentration <= NRG Cefazolin susceptibility test by minimum inhibitory co ncentration <= NRG Ceftriaxone susceptibility test by minimum inhibitory concentration <= NRG Ciprofloxacin susceptibility test by minimum inhibitor y concentration <= NRG Meropenem susceptibility test by minimum inhibitory co ncentration <= NRG Nitrofurantoin susceptibility test by mi nimum inhibitory concentration <= NRG Amoxicillin and clavulanate potassium susc HARRY <= NRG Blood lactic acid measurement (moles/vol ume) - 08/10/19 22:45 Blood lactic acid measurement (moles/volume) 1.17 mmol/L 0.50-2.00 Complete blood count (CBC) with automate d white blood cell (WBC) differential - 08/11/19 05:40 Blood leukocytes automated count (number/volume) 12.4 10*3/uL 4.3-11.0 Blood erythrocytes automated count (number/volume) 3.89 10*6/uL 4.35-5.85 Venous blood hemoglobin measurement (mass/volume) 8.2 g/dL 11.5-16.0 Blood hematocrit (volume fraction) 29 % 35-52 Automated erythrocyte mean corpuscular volume 75 [ foz_us] 80-99 Automated erythrocyte mean corpuscular h emoglobin (mass per erythrocyte) 21 pg 25-34 Automated erythrocyte mean corpuscular h emoglobin concentration measurement (mass/volume) 28 g/dL 32-36 Automated erythrocyte distribution width ratio 20. 9 % 10.0- 14.5 Automated blood platelet count (count/volume) 354 10*3/uL 130-400 Automated blood platelet mean volume measurement 9.8 [foz_us] 7.4-10.4 Automated blood neutrophils/100 leukocytes 80 % 42-75 Automated blood lymphocytes/100 leukocytes 11 % 12-44 Blood monocytes/100 leukocytes 9 % 0-12 Automated blood eosinophils/100 leukocytes 1 % 0-10 Automated blood basophils/100 leukocytes 0 % 0-10 Blood neutrophils automated count (number/volume) 9.9 10*3 1.8-7.8 Blood lymphocytes automated count (number/volume) 1.3 10*3 1.0-4.0 Blood monocytes automated count (number/volume) 1. 1 10*3 0.0-1.0 Automated eosinophil count 0.1 10*3/uL 0 .0-0.3 Automated blood basophil count (count/volume) 0.0 10*3/uL 0.0-0.1 Comprehensive metabolic panel - 08/11/19 05:40 Serum or plasma sodium measurement (moles/volume) 142 mmol/L 135-145 Serum or plasma potassium measurement (moles/volume) 4.0 mmol/L 3.6-5.0 Serum or plasma chloride measurement (moles/volume) 111 mmol/L 98-107 Carbon dioxide 24 mmol/L 21-32 Serum or plasma anion gap determination (moles/volume) 7 mmol/L 5-14 Serum or plasma urea nitrogen measurement (mass/volume ) 16 mg/dL 7-18 Serum or plasma creatinine measurement (mass/volume) 0.57 mg/dL 0.60-1.30 Serum or plasma urea nitrogen/creatinine mass ratio 28 NRG Serum or plasma creatinine measurement w ith calculation of estimated glomerular filtration rate > NRG Serum or plasma glucose measurement (mass/volume) 93 mg/dL 70-105 Serum or plasma calcium measurement (mass/volume) 7.7 mg/dL 8.5-10.1 Serum or plasma total bilirubin measurement (mass/volu me) 0.2 mg/dL 0.1-1.0 Serum or plasma alkaline phosphatase mireya surement (enzymatic activity/volume) 73 U/L 40-136 Serum or plasma aspartate aminotransfera se measurement (enzymatic activity/volume) 13 U/L 5-34 Serum or plasma alanine aminotransferase measurement (enzymatic activity/volume) 6 U/L 0-55 Serum or plasma protein measurement (mass/volume) 5.1 g/dL 6.4-8.2 Serum or plasma albumin measurement (mass/volume) 2.2 g/dL 3.2-4.5 CALCIUM CORRECTED 9.1 mg/dL 8.5-10.1 Complete blood count (CBC) with automate d white blood cell (WBC) differential - 08/12/19 05:20 Blood leukocytes automated count (number/volume) 8.0 10*3/uL 4.3-11.0 Blood erythrocytes automated count (number/volume) 3.90 10*6/uL 4.35-5.85 Venous blood hemoglobin measurement (mass/volume) 8.3 g/dL 11.5-16.0 Blood hematocrit (volume fraction) 30 % 35-52 Automated erythrocyte mean corpuscular volume 76 [ foz_us] 80-99 Automated erythrocyte mean corpuscular h emoglobin (mass per erythrocyte) 21 pg 25-34 Automated erythrocyte mean corpuscular h emoglobin concentration measurement (mass/volume) 28 g/dL 32-36 Automated erythrocyte distribution width ratio 20. 8 % 10.0- 14.5 Automated blood platelet count (count/volume) 308 10*3/uL 130-400 Automated blood platelet mean volume measurement 10.8 [foz_us] 7.4-10.4 Automated blood neutrophils/100 leukocytes 69 % 42-75 Automated blood lymphocytes/100 leukocytes 17 % 12-44 Blood monocytes/100 leukocytes 11 % 0-12 Automated blood eosinophils/100 leukocytes 3 % 0-10 Automated blood basophils/100 leukocytes 0 % 0-10 Blood neutrophils automated count (number/volume) 5.5 10*3 1.8-7.8 Blood lymphocytes automated count (number/volume) 1.4 10*3 1.0-4.0 Blood monocytes automated count (number/volume) 0. 9 10*3 0.0-1.0 Automated eosinophil count 0.2 10*3/uL 0 .0-0.3 Automated blood basophil count (count/volume) 0.0 10*3/uL 0.0-0.1 Whole blood basic metabolic panel - 07/31 02/15 05:20 Serum or plasma sodium measurement (moles/volume) 142 mmol/L 135-145 Serum or plasma potassium measurement (moles/volume) 4.3 mmol/L 3.6-5.0 Serum or plasma chloride measurement (moles/volume) 109 mmol/L 98-107 Carbon dioxide 22 mmol/L 21-32 Serum or plasma anion gap determination (moles/volume) 11 mmol/L 5-14 Serum or plasma urea nitrogen measurement (mass/volume ) 12 mg/dL 7-18 Serum or plasma creatinine measurement (mass/volume) 0.67 mg/dL 0.60-1.30 Serum or plasma urea nitrogen/creatinine mass ratio 18 NRG Serum or plasma creatinine measurement w ith calculation of estimated glomerular filtration rate > NRG Serum or plasma glucose measurement (mass/volume) 68 mg/dL 70-105 Serum or plasma calcium measurement (mass/volume) 8.1 mg/dL 8.5-10.1 Complete blood count (CBC) with automate d white blood cell (WBC) differential - 08/13/19 07:12 Blood leukocytes automated count (number/volume) 6.6 10*3/uL 4.3-11.0 Blood erythrocytes automated count (number/volume) 4.12 10*6/uL 4.35-5.85 Venous blood hemoglobin measurement (mass/volume) 8.6 g/dL 11.5-16.0 Blood hematocrit (volume fraction) 31 % 35-52 Automated erythrocyte mean corpuscular volume 76 [ foz_us] 80-99 Automated erythrocyte mean corpuscular h emoglobin (mass per erythrocyte) 21 pg 25-34 Automated erythrocyte mean corpuscular h emoglobin concentration measurement (mass/volume) 27 g/dL 32-36 Automated erythrocyte distribution width ratio 20. 8 % 10.0- 14.5 Automated blood platelet count (count/volume) 381 10*3/uL 130-400 Automated blood platelet mean volume measurement 10.2 [foz_us] 7.4-10.4 Automated blood neutrophils/100 leukocytes 65 % 42-75 Automated blood lymphocytes/100 leukocytes 21 % 12-44 Blood monocytes/100 leukocytes 11 % 0-12 Automated blood eosinophils/100 leukocytes 3 % 0-10 Automated blood basophils/100 leukocytes 0 % 0-10 Blood neutrophils automated count (number/volume) 4.3 10*3 1.8-7.8 Blood lymphocytes automated count (number/volume) 1.4 10*3 1.0-4.0 Blood monocytes automated count (number/volume) 0. 7 10*3 0.0-1.0 Automated eosinophil count 0.2 10*3/uL 0 .0-0.3 Automated blood basophil count (count/volume) 0.0 10*3/uL 0.0-0.1 Whole blood basic metabolic panel - 07/31 03/18 07:12 Serum or plasma sodium measurement (moles/volume) 143 mmol/L 135-145 Serum or plasma potassium measurement (moles/volume) 4.2 mmol/L 3.6-5.0 Serum or plasma chloride measurement (moles/volume) 109 mmol/L 98-107 Carbon dioxide 27 mmol/L 21-32 Serum or plasma anion gap determination (moles/volume) 7 mmol/L 5-14 Serum or plasma urea nitrogen measurement (mass/volume ) 12 mg/dL 7-18 Serum or plasma creatinine measurement (mass/volume) 0.66 mg/dL 0.60-1.30 Serum or plasma urea nitrogen/creatinine mass ratio 18 NRG Serum or plasma creatinine measurement w ith calculation of estimated glomerular filtration rate > NRG Serum or plasma glucose measurement (mass/volume) 81 mg/dL 70-105 Serum or plasma calcium measurement (mass/volume) 8.2 mg/dL 8.5-10.1 Capillary blood glucose measurement by g lucometer (mass/volume) - 08/14/19 11:09 Capillary blood glucose measurement by glucometer (mas s/volume) 200 mg/dL 70-110 [id number] - 10/21/19 07:50 Serum or plasma urea nitrogen measurement (mass/volume ) 13 mg/dL 7-18 Serum or plasma creatinine measurement (mass/volume) 0.79 mg/dL 0.60-1.30 Serum or plasma urea nitrogen/creatinine mass ratio 16 NRG Serum or plasma creatinine measurement w ith calculation of estimated glomerular filtration rate > NRG Complete blood count (CBC) with automate d white blood cell (WBC) differential - 10/23/19 09:00 Blood leukocytes automated count (number/volume) 9.1 10*3/uL 4.3-11.0 Blood erythrocytes automated count (number/volume) 4.63 10*6/uL 4.35-5.85 Venous blood hemoglobin measurement (mass/volume) 10.6 g/dL 11.5-16.0 Blood hematocrit (volume fraction) 38 % 35-52 Automated erythrocyte mean corpuscular volume 81 [ foz_us] 80-99 Automated erythrocyte mean corpuscular h emoglobin (mass per erythrocyte) 23 pg 25-34 Automated erythrocyte mean corpuscular h emoglobin concentration measurement (mass/volume) 28 g/dL 32-36 Automated erythrocyte distribution width ratio 18. 4 % 10.0- 14.5 Automated blood platelet count (count/volume) 299 10*3/uL 130-400 Automated blood platelet mean volume measurement 11.0 [foz_us] 7.4-10.4 Automated blood neutrophils/100 leukocytes 71 % 42-75 Automated blood lymphocytes/100 leukocytes 19 % 12-44 Blood monocytes/100 leukocytes 9 % 0-12 Automated blood eosinophils/100 leukocytes 2 % 0-10 Automated blood basophils/100 leukocytes 0 % 0-10 Blood neutrophils automated count (number/volume) 6.4 10*3 1.8-7.8 Blood lymphocytes automated count (number/volume) 1.7 10*3 1.0-4.0 Blood monocytes automated count (number/volume) 0. 8 10*3 0.0-1.0 Automated eosinophil count 0.2 10*3/uL 0 .0-0.3 Automated blood basophil count (count/volume) 0.0 10*3/uL 0.0-0.1 Comprehensive metabolic panel - 10/23/19 09:00 Serum or plasma sodium measurement (moles/volume) 141 mmol/L 135-145 Serum or plasma potassium measurement (moles/volume) 4.6 mmol/L 3.6-5.0 Serum or plasma chloride measurement (moles/volume) 108 mmol/L 98-107 Carbon dioxide 24 mmol/L 21-32 Serum or plasma anion gap determination (moles/volume) 9 mmol/L 5-14 Serum or plasma urea nitrogen measurement (mass/volume ) 12 mg/dL 7-18 Serum or plasma creatinine measurement (mass/volume) 0.78 mg/dL 0.60-1.30 Serum or plasma urea nitrogen/creatinine mass ratio 15 NRG Serum or plasma creatinine measurement w ith calculation of estimated glomerular filtration rate > NRG Serum or plasma glucose measurement (mass/volume) 104 mg/dL 70-105 Serum or plasma calcium measurement (mass/volume) 8.1 mg/dL 8.5-10.1 Serum or plasma total bilirubin measurement (mass/volu me) 0.2 mg/dL 0.1-1.0 Serum or plasma alkaline phosphatase mireya surement (enzymatic activity/volume) 71 U/L 40-136 Serum or plasma aspartate aminotransfera se measurement (enzymatic activity/volume) 12 U/L 5-34 Serum or plasma alanine aminotransferase measurement (enzymatic activity/volume) 9 U/L 0-55 Serum or plasma protein measurement (mass/volume) 6.7 g/dL 6.4-8.2 Serum or plasma albumin measurement (mass/volume) 2.9 g/dL 3.2-4.5 CALCIUM CORRECTED 9.0 mg/dL 8.5-10.1 Serum or plasma C reactive protein measu rement (mass/volume) - 10/23/19 09:00 Serum or plasma C reactive protein measurement (mass/v olume) 0.99 mg/dL 0.00-0.50 Blood CBC with ordered manual differenti al panel - 11/01/19 13:55 Blood leukocytes automated count (number/volume) 15.1 10*3/uL 4.3-11.0 Blood erythrocytes automated count (number/volume) 4.95 10*6/uL 4.35-5.85 Venous blood hemoglobin measurement (mass/volume) 11.2 g/dL 11.5-16.0 Blood hematocrit (volume fraction) 39 % 35-52 Automated erythrocyte mean corpuscular volume 80 [ foz_us] 80-99 Automated erythrocyte mean corpuscular h emoglobin (mass per erythrocyte) 23 pg 25-34 Automated erythrocyte mean corpuscular h emoglobin concentration measurement (mass/volume) 28 g/dL 32-36 Automated erythrocyte distribution width ratio 17. 8 % 10.0- 14.5 Automated blood platelet count (count/volume) 328 10*3/uL 130-400 Automated blood platelet mean volume measurement 11.0 [foz_us] 7.4-10.4 Automated blood neutrophils/100 leukocytes 84 % 42-75 Automated blood lymphocytes/100 leukocytes 9 % 12-44 Blood monocytes/100 leukocytes 7 % 0-12 Automated blood eosinophils/100 leukocytes 0 % 0-10 Automated blood basophils/100 leukocytes 0 % 0-10 Blood neutrophils automated count (number/volume) 12.7 10*3 1.8-7.8 Blood lymphocytes automated count (number/volume) 1.3 10*3 1.0-4.0 Blood monocytes automated count (number/volume) 1. 1 10*3 0.0-1.0 Automated eosinophil count 0.1 10*3/uL 0 .0-0.3 Automated blood basophil count (count/volume) 0.0 10*3/uL 0.0-0.1 Blood lactic acid measurement (moles/vol ume) - 11/01/19 13:55 Blood lactic acid measurement (moles/volume) 2.16 mmol/L 0.50-2.00 Bacterial blood culture - 11/01/19 13:55 Bacterial blood culture NG NRG Bacterial blood culture - 11/01/19 14:00 Bacterial blood culture NG NRG Influenza virus A and B antigen detectio n - 11/01/19 15:47 FLU RESULT NEGATIVE FOR INFLUENZA A AND B ANTIGENS BY IA NRG Sputum Gram stain - 11/01/19 16:12 Sputum Gram stain Many Gram negative diplococci NRG Bacterial sputum culture - 11/01/19 16:1 2 FREE TEXT EXTERNAL BETA LACTAMASE POSITIVE NRG QUANTITY OF GROWTH . NRG Bacterial sputum culture SEE COMMEN NRG Arterial blood gas measurement - 9 16:18 Blood pCO2 45 mm[Hg] 35-45 Blood pO2 66 mm[Hg] 79-93 Arterial blood bicarbonate measurement (moles/volume) 26 mmol/L 23-27 Arterial blood base excess by calculation 1.3 mmol /L -2.5-2.5 Arterial blood oxygen saturation measurement 91 % 94-100 * Inhaled oxygen flow rate 4L NRG Arterial blood pH measurement with patient temperature correction 7.38 7.37-7.43 Arterial blood carbon dioxide, total measurement (mole s/volume) 27.2 mmol/L 21.0-31.0 Body site LR NRG Assessment of wrist artery patency prior to arterial p uncture YES-POS NRG Setting of ventilation mode NO NR G Measurement of body temperature 37.6 NRG Serum or plasma lactate measurement (mol es/volume) - 11/01/19 16:40 Serum or plasma lactate measurement (moles/volume) 0.75 mmol/L 0.50-2.00 Complete blood count (CBC) with automate d white blood cell (WBC) differential - 11/02/19 03:10 Blood leukocytes automated count (number/volume) 12.9 10*3/uL 4.3-11.0 Blood erythrocytes automated count (number/volume) 3.85 10*6/uL 4.35-5.85 Venous blood hemoglobin measurement (mass/volume) 8.7 g/dL 11.5-16.0 Blood hematocrit (volume fraction) 31 % 35-52 Automated erythrocyte mean corpuscular volume 80 [ foz_us] 80-99 Automated erythrocyte mean corpuscular h emoglobin (mass per erythrocyte) 23 pg 25-34 Automated erythrocyte mean corpuscular h emoglobin concentration measurement (mass/volume) 28 g/dL 32-36 Automated erythrocyte distribution width ratio 17. 4 % 10.0- 14.5 Automated blood platelet count (count/volume) 252 10*3/uL 130-400 Automated blood platelet mean volume measurement 11.2 [foz_us] 7.4-10.4 Automated blood neutrophils/100 leukocytes 87 % 42-75 Automated blood lymphocytes/100 leukocytes 7 % 12-44 Blood monocytes/100 leukocytes 6 % 0-12 Automated blood eosinophils/100 leukocytes 0 % 0-10 Automated blood basophils/100 leukocytes 0 % 0-10 Blood neutrophils automated count (number/volume) 11.2 10*3 1.8-7.8 Blood lymphocytes automated count (number/volume) 0.8 10*3 1.0-4.0 Blood monocytes automated count (number/volume) 0. 8 10*3 0.0-1.0 Automated eosinophil count 0.0 10*3/uL 0 .0-0.3 Automated blood basophil count (count/volume) 0.0 10*3/uL 0.0-0.1 Comprehensive metabolic panel - 11/02/19 03:10 Serum or plasma sodium measurement (moles/volume) 141 mmol/L 135-145 Serum or plasma potassium measurement (moles/volume) 3.9 mmol/L 3.6-5.0 Serum or plasma chloride measurement (moles/volume) 107 mmol/L 98-107 Carbon dioxide 22 mmol/L 21-32 Serum or plasma anion gap determination (moles/volume) 12 mmol/L 5-14 Serum or plasma urea nitrogen measurement (mass/volume ) 13 mg/dL 7-18 Serum or plasma creatinine measurement (mass/volume) 0.66 mg/dL 0.60-1.30 Serum or plasma urea nitrogen/creatinine mass ratio 20 NRG Serum or plasma creatinine measurement w ith calculation of estimated glomerular filtration rate > NRG Serum or plasma glucose measurement (mass/volume) 116 mg/dL 70-105 Serum or plasma calcium measurement (mass/volume) 7.9 mg/dL 8.5-10.1 Serum or plasma total bilirubin measurement (mass/volu me) 0.2 mg/dL 0.1-1.0 Serum or plasma alkaline phosphatase mireya surement (enzymatic activity/volume) 60 U/L 40-136 Serum or plasma aspartate aminotransfera se measurement (enzymatic activity/volume) 9 U/L 5-34 Serum or plasma alanine aminotransferase measurement (enzymatic activity/volume) < U/L 0-55 Serum or plasma protein measurement (mass/volume) 6.1 g/dL 6.4-8.2 Serum or plasma albumin measurement (mass/volume) 2.6 g/dL 3.2-4.5 CALCIUM CORRECTED 9.0 mg/dL 8.5-10.1 Complete urinalysis with reflex to cultu re - 11/02/19 10:15 Urine color determination YELLOW NRG Urine clarity determination CLOUDY NR G Urine pH measurement by test strip 6.0 5-9 Specific gravity of urine by test strip 1.020 1.016-1.022 Urine protein assay by test strip, semi-quantitative TRACE NEGATIVE Urine glucose detection by automated test strip NE GATIVE NEGATIVE Erythrocytes detection in urine sediment by light micr oscopy 1+ NEGATIVE Urine ketones detection by automated test strip NE GATIVE NEGATIVE Urine nitrite detection by test strip POSITIVE NEGATIVE Urine total bilirubin detection by test strip NEGA TIVE NEGATIVE Urine urobilinogen measurement by automated test strip (mass/volume) 0.2 mg/dL < = 1.0 Urine leukocyte esterase detection by dipstick 3+ NEGATIVE Automated urine sediment erythrocyte cou nt by microscopy (number/high power field) [HPF] NRG Automated urine sediment leukocyte count by microscopy (number/high power field) TNTC NRG Bacteria detection in urine sediment by light microsco py LARGE NRG Squamous epithelial cells detection in u rine sediment by light microscopy 10-25 NRG Crystals detection in urine sediment by light microsco py NONE NRG Casts detection in urine sediment by light microscopy NONE NRG Mucus detection in urine sediment by light microscopy NEGATIVE NRG Complete urinalysis with reflex to culture YES NRG Bacterial urine culture - 11/02/19 10:15 Bacterial urine culture [id number] NRG COLONY COUNT >100,000/ML NRG FTX;REPORTABLE SUSCEPTIBILITY REPORTED 11-04-2019, 0917 NRG Dirithromycin susceptibility test by dis k diffusion - 11/02/19 10:15 Gentamicin susceptibility test by minimum inhibitory c oncentration <= NRG Levofloxacin susceptibility test by minimum inhibitory concentration <= NRG Tobramycin susceptibility test by minimum inhibitory c oncentration <= NRG Piperacillin/tazobactam susceptibility t est by minimum inhibitory concentration = NRG Ciprofloxacin susceptibility test by minimum inhibitor y concentration <= NRG Meropenem susceptibility test by minimum inhibitory co ncentration 0.5 NRG Aztreonam susceptibility test by minimum inhibitory co ncentration 4 NRG Cefepime susceptibility test by minimum inhibitory con centration 2 NRG Imipenem susceptibility test by minimum inhibitory con centration 2 NRG Ceftazidime susceptibility test by minimum inhibitory concentration <= NRG Capillary blood glucose measurement by g lucometer (mass/volume) - 11/02/19 20:57 Capillary blood glucose measurement by glucometer (mas s/volume) 122 mg/dL 70-110 Complete blood count (CBC) with automate d white blood cell (WBC) differential - 11/03/19 06:20 Blood leukocytes automated count (number/volume) 8.2 10*3/uL 4.3-11.0 Blood erythrocytes automated count (number/volume) 3.78 10*6/uL 4.35-5.85 Venous blood hemoglobin measurement (mass/volume) 8.6 g/dL 11.5-16.0 Blood hematocrit (volume fraction) 31 % 35-52 Automated erythrocyte mean corpuscular volume 82 [ foz_us] 80-99 Automated erythrocyte mean corpuscular h emoglobin (mass per erythrocyte) 23 pg 25-34 Automated erythrocyte mean corpuscular h emoglobin concentration measurement (mass/volume) 28 g/dL 32-36 Automated erythrocyte distribution width ratio 17. 7 % 10.0- 14.5 Automated blood platelet count (count/volume) 235 10*3/uL 130-400 Automated blood platelet mean volume measurement 10.6 [foz_us] 7.4-10.4 Automated blood neutrophils/100 leukocytes 76 % 42-75 Automated blood lymphocytes/100 leukocytes 11 % 12-44 Blood monocytes/100 leukocytes 12 % 0-12 Automated blood eosinophils/100 leukocytes 1 % 0-10 Automated blood basophils/100 leukocytes 0 % 0-10 Blood neutrophils automated count (number/volume) 6.2 10*3 1.8-7.8 Blood lymphocytes automated count (number/volume) 0.9 10*3 1.0-4.0 Blood monocytes automated count (number/volume) 1. 0 10*3 0.0-1.0 Automated eosinophil count 0.1 10*3/uL 0 .0-0.3 Automated blood basophil count (count/volume) 0.0 10*3/uL 0.0-0.1 Comprehensive metabolic panel - 11/03/19 06:20 Serum or plasma sodium measurement (moles/volume) 144 mmol/L 135-145 Serum or plasma potassium measurement (moles/volume) 3.8 mmol/L 3.6-5.0 Serum or plasma chloride measurement (moles/volume) 112 mmol/L 98-107 Carbon dioxide 22 mmol/L 21-32 Serum or plasma anion gap determination (moles/volume) 10 mmol/L 5-14 Serum or plasma urea nitrogen measurement (mass/volume ) 10 mg/dL 7-18 Serum or plasma creatinine measurement (mass/volume) 0.63 mg/dL 0.60-1.30 Serum or plasma urea nitrogen/creatinine mass ratio 16 NRG Serum or plasma creatinine measurement w ith calculation of estimated glomerular filtration rate > NRG Serum or plasma glucose measurement (mass/volume) 75 mg/dL 70-105 Serum or plasma calcium measurement (mass/volume) 7.8 mg/dL 8.5-10.1 Serum or plasma total bilirubin measurement (mass/volu me) 0.1 mg/dL 0.1-1.0 Serum or plasma alkaline phosphatase mireya surement (enzymatic activity/volume) 57 U/L 40-136 Serum or plasma aspartate aminotransfera se measurement (enzymatic activity/volume) 11 U/L 5-34 Serum or plasma alanine aminotransferase measurement (enzymatic activity/volume) 8 U/L 0-55 Serum or plasma protein measurement (mass/volume) 5.8 g/dL 6.4-8.2 Serum or plasma albumin measurement (mass/volume) 2.4 g/dL 3.2-4.5 CALCIUM CORRECTED 9.1 mg/dL 8.5-10.1 Sputum Gram stain - 11/03/19 08:15 Sputum Gram stain NO BACTERIA SEEN NRG Bacterial sputum culture - 11/03/19 08:1 5 QUANTITY OF GROWTH SMALL AMOUNT NRG Bacterial sputum culture USUAL RESP NRG Capillary blood glucose measurement by g lucometer (mass/volume) - 11/03/19 08:53 Capillary blood glucose measurement by glucometer (mas s/volume) 100 mg/dL 70-110 Capillary blood glucose measurement by g lucometer (mass/volume) - 11/03/19 20:32 Capillary blood glucose measurement by glucometer (mas s/volume) 110 mg/dL 70-110 Complete blood count (CBC) with automate d white blood cell (WBC) differential - 11/04/19 05:25 Blood leukocytes automated count (number/volume) 5.8 10*3/uL 4.3-11.0 Blood erythrocytes automated count (number/volume) 3.89 10*6/uL 4.35-5.85 Venous blood hemoglobin measurement (mass/volume) 8.8 g/dL 11.5-16.0 Blood hematocrit (volume fraction) 32 % 35-52 Automated erythrocyte mean corpuscular volume 82 [ foz_us] 80-99 Automated erythrocyte mean corpuscular h emoglobin (mass per erythrocyte) 23 pg 25-34 Automated erythrocyte mean corpuscular h emoglobin concentration measurement (mass/volume) 28 g/dL 32-36 Automated erythrocyte distribution width ratio 17. 7 % 10.0- 14.5 Automated blood platelet count (count/volume) 303 10*3/uL 130-400 Automated blood platelet mean volume measurement 10.3 [foz_us] 7.4-10.4 Automated blood neutrophils/100 leukocytes 61 % 42-75 Automated blood lymphocytes/100 leukocytes 24 % 12-44 Blood monocytes/100 leukocytes 12 % 0-12 Automated blood eosinophils/100 leukocytes 3 % 0-10 Automated blood basophils/100 leukocytes 0 % 0-10 Blood neutrophils automated count (number/volume) 3.5 10*3 1.8-7.8 Blood lymphocytes automated count (number/volume) 1.4 10*3 1.0-4.0 Blood monocytes automated count (number/volume) 0. 7 10*3 0.0-1.0 Automated eosinophil count 0.2 10*3/uL 0 .0-0.3 Automated blood basophil count (count/volume) 0.0 10*3/uL 0.0-0.1 Comprehensive metabolic panel - 11/04/19 05:25 Serum or plasma sodium measurement (moles/volume) 142 mmol/L 135-145 Serum or plasma potassium measurement (moles/volume) 4.3 mmol/L 3.6-5.0 Serum or plasma chloride measurement (moles/volume) 107 mmol/L 98-107 Carbon dioxide 26 mmol/L 21-32 Serum or plasma anion gap determination (moles/volume) 9 mmol/L 5-14 Serum or plasma urea nitrogen measurement (mass/volume ) 10 mg/dL 7-18 Serum or plasma creatinine measurement (mass/volume) 0.79 mg/dL 0.60-1.30 Serum or plasma urea nitrogen/creatinine mass ratio 13 NRG Serum or plasma creatinine measurement w ith calculation of estimated glomerular filtration rate > NRG Serum or plasma glucose measurement (mass/volume) 76 mg/dL 70-105 Serum or plasma calcium measurement (mass/volume) 8.4 mg/dL 8.5-10.1 Serum or plasma total bilirubin measurement (mass/volu me) 0.2 mg/dL 0.1-1.0 Serum or plasma alkaline phosphatase mireya surement (enzymatic activity/volume) 67 U/L 40-136 Serum or plasma aspartate aminotransfera se measurement (enzymatic activity/volume) 8 U/L 5-34 Serum or plasma alanine aminotransferase measurement (enzymatic activity/volume) < U/L 0-55 Serum or plasma protein measurement (mass/volume) 6.2 g/dL 6.4-8.2 Serum or plasma albumin measurement (mass/volume) 2.6 g/dL 3.2-4.5 CALCIUM CORRECTED 9.5 mg/dL 8.5-10.1 Capillary blood glucose measurement by g lucometer (mass/volume) - 11/04/19 21:30 Capillary blood glucose measurement by glucometer (mas s/volume) 115 mg/dL 70-110 Capillary blood glucose measurement by g lucometer (mass/volume) - 11/05/19 09:03 Capillary blood glucose measurement by glucometer (mas s/volume) 112 mg/dL 70-110 Capillary blood glucose measurement by g lucometer (mass/volume) - 11/05/19 20:58 Capillary blood glucose measurement by glucometer (mas s/volume) 106 mg/dL 70-110 Capillary blood glucose measurement by g lucometer (mass/volume) - 11/06/19 10:36 Capillary blood glucose measurement by glucometer (mas s/volume) 92 mg/dL 70-110 Capillary blood glucose measurement by g lucometer (mass/volume) - 11/06/19 20:21 Capillary blood glucose measurement by glucometer (mas s/volume) 100 mg/dL 70-110 Complete blood count (CBC) with automate d white blood cell (WBC) differential - 11/07/19 05:25 Blood leukocytes automated count (number/volume) 9.3 10*3/uL 4.3-11.0 Blood erythrocytes automated count (number/volume) 4.34 10*6/uL 4.35-5.85 Venous blood hemoglobin measurement (mass/volume) 9.8 g/dL 11.5-16.0 Blood hematocrit (volume fraction) 35 % 35-52 Automated erythrocyte mean corpuscular volume 80 [ foz_us] 80-99 Automated erythrocyte mean corpuscular h emoglobin (mass per erythrocyte) 23 pg 25-34 Automated erythrocyte mean corpuscular h emoglobin concentration measurement (mass/volume) 28 g/dL 32-36 Automated erythrocyte distribution width ratio 18. 4 % 10.0- 14.5 Automated blood platelet count (count/volume) 337 10*3/uL 130-400 Automated blood platelet mean volume measurement 10.2 [foz_us] 7.4-10.4 Automated blood neutrophils/100 leukocytes 70 % 42-75 Automated blood lymphocytes/100 leukocytes 19 % 12-44 Blood monocytes/100 leukocytes 9 % 0-12 Automated blood eosinophils/100 leukocytes 2 % 0-10 Automated blood basophils/100 leukocytes 0 % 0-10 Blood neutrophils automated count (number/volume) 6.5 10*3 1.8-7.8 Blood lymphocytes automated count (number/volume) 1.8 10*3 1.0-4.0 Blood monocytes automated count (number/volume) 0. 8 10*3 0.0-1.0 Automated eosinophil count 0.2 10*3/uL 0 .0-0.3 Automated blood basophil count (count/volume) 0.0 10*3/uL 0.0-0.1 Comprehensive metabolic panel - 11/07/19 05:25 Serum or plasma sodium measurement (moles/volume) 141 mmol/L 135-145 Serum or plasma potassium measurement (moles/volume) 4.1 mmol/L 3.6-5.0 Serum or plasma chloride measurement (moles/volume) 101 mmol/L 98-107 Carbon dioxide 30 mmol/L 21-32 Serum or plasma anion gap determination (moles/volume) 10 mmol/L 5-14 Serum or plasma urea nitrogen measurement (mass/volume ) 11 mg/dL 7-18 Serum or plasma creatinine measurement (mass/volume) 0.93 mg/dL 0.60-1.30 Serum or plasma urea nitrogen/creatinine mass ratio 12 NRG Serum or plasma creatinine measurement w ith calculation of estimated glomerular filtration rate > NRG Serum or plasma glucose measurement (mass/volume) 98 mg/dL 70-105 Serum or plasma calcium measurement (mass/volume) 9.2 mg/dL 8.5-10.1 Serum or plasma total bilirubin measurement (mass/volu me) 0.1 mg/dL 0.1-1.0 Serum or plasma alkaline phosphatase mireya surement (enzymatic activity/volume) 70 U/L 40-136 Serum or plasma aspartate aminotransfera se measurement (enzymatic activity/volume) 13 U/L 5-34 Serum or plasma alanine aminotransferase measurement (enzymatic activity/volume) 7 U/L 0-55 Serum or plasma protein measurement (mass/volume) 6.7 g/dL 6.4-8.2 Serum or plasma albumin measurement (mass/volume) 2.9 g/dL 3.2-4.5 CALCIUM CORRECTED 10.1 mg/dL 8.5-10.1 Capillary blood glucose measurement by g lucometer (mass/volume) - 11/07/19 20:37 Capillary blood glucose measurement by glucometer (mas s/volume) 140 mg/dL 70-110 Complete blood count (CBC) with automate d white blood cell (WBC) differential - 11/08/19 06:05 Blood leukocytes automated count (number/volume) 9.8 10*3/uL 4.3-11.0 Blood erythrocytes automated count (number/volume) 4.69 10*6/uL 4.35-5.85 Venous blood hemoglobin measurement (mass/volume) 10.7 g/dL 11.5-16.0 Blood hematocrit (volume fraction) 39 % 35-52 Automated erythrocyte mean corpuscular volume 82 [ foz_us] 80-99 Automated erythrocyte mean corpuscular h emoglobin (mass per erythrocyte) 23 pg 25-34 Automated erythrocyte mean corpuscular h emoglobin concentration measurement (mass/volume) 28 g/dL 32-36 Automated erythrocyte distribution width ratio 18. 6 % 10.0- 14.5 Automated blood platelet count (count/volume) 303 10*3/uL 130-400 Automated blood platelet mean volume measurement 10.1 [foz_us] 7.4-10.4 Automated blood neutrophils/100 leukocytes 70 % 42-75 Automated blood lymphocytes/100 leukocytes 18 % 12-44 Blood monocytes/100 leukocytes 10 % 0-12 Automated blood eosinophils/100 leukocytes 2 % 0-10 Automated blood basophils/100 leukocytes 0 % 0-10 Blood neutrophils automated count (number/volume) 6.9 10*3 1.8-7.8 Blood lymphocytes automated count (number/volume) 1.8 10*3 1.0-4.0 Blood monocytes automated count (number/volume) 1. 0 10*3 0.0-1.0 Automated eosinophil count 0.2 10*3/uL 0 .0-0.3 Automated blood basophil count (count/volume) 0.0 10*3/uL 0.0-0.1 Whole blood basic metabolic panel - 10/30 06:05 Serum or plasma sodium measurement (moles/volume) 141 mmol/L 135-145 Serum or plasma potassium measurement (moles/volume) 4.2 mmol/L 3.6-5.0 Serum or plasma chloride measurement (moles/volume) 99 mmol/L 98-107 Carbon dioxide 29 mmol/L 21-32 Serum or plasma anion gap determination (moles/volume) 13 mmol/L 5-14 Serum or plasma urea nitrogen measurement (mass/volume ) 12 mg/dL 7-18 Serum or plasma creatinine measurement (mass/volume) 0.87 mg/dL 0.60-1.30 Serum or plasma urea nitrogen/creatinine mass ratio 14 NRG Serum or plasma creatinine measurement w ith calculation of estimated glomerular filtration rate > NRG Serum or plasma glucose measurement (mass/volume) 83 mg/dL 70-105 Serum or plasma calcium measurement (mass/volume) 9.9 mg/dL 8.5-10.1 Capillary blood glucose measurement by g lucometer (mass/volume) - 11/08/19 08:56 Capillary blood glucose measurement by glucometer (mas s/volume) 125 mg/dL 70-110 CULTURE, URINE - 11/16/19 19:00 CULTURE, URINE, ROUTINE SEE NOTE NRG Encounters ACCT No. Visit Date/Time Discharge Status Pt. Type Provider Facility Loc./Unit Complaint [id number] 02/27/2015 09:51:00 02/27/2015 23:59: 59 [facility] Outpatient ETELVINA LEONARD APRN [id number] 02/19/2015 08:48:00 02/19/2015 23:59: 59 [facility] Outpatient ETELVINA LEONARD APRN [id number] 02/09/2015 08:56:00 02/09/2015 23:59: 59 CLS Outpatient SALGUERO DOLADONNA [id number] 12/11/2014 14:31:00 12/11/2014 23:59: 59 CLS Outpatient MADL OTOLARYNGOLOGY TEACHER, ETELVINA L [id number] 12/11/2014 14:31:00 12/11/2014 23:59: 59 CLS Outpatient SALGUERO DOLADONNA [id number] 11/27/2014 13:24:00 11/27/2014 23:59: 59 CLS Outpatient SALGUERO DOLADONNA [id number] 11/27/2014 13:24:00 11/27/2014 23:59: 59 CLS Outpatient MADL OTOLARYNGOLOGY TEACHER, ETELVINA L [id number] 11/13/2014 09:52:00 11/13/2014 23:59: 59 CLS Outpatient MADL OTOLARYNGOLOGY TEACHER, ETELVINA L [id number] 10/23/2014 13:14:00 10/23/2014 23:59: 59 CLS Outpatient MADL OTOLARYNGOLOGY TEACHER, ETELVINA L [id number] 09/25/2014 13:26:00 09/25/2014 23:59: 59 CLS Outpatient MADL OTOLARYNGOLOGY TEACHER, ETELVINA L [id number] 08/28/2014 09:22:00 08/28/2014 23:59: 59 CLS Outpatient MADL OTOLARYNGOLOGY TEACHER, ETELVINA L [id number] 08/28/2014 09:22:00 08/28/2014 23:59: 59 CLS Outpatient MADL OTOLARYNGOLOGY TEACHER, ETELVINA L [id number] 07/24/2014 09:55:00 07/24/2014 23:59: 59 CLS Outpatient SALGUERO DOLADONNA Adriana [id number] 06/19/2014 09:11:00 06/19/2014 23:59: 59 CLS Outpatient SALGUERO DO, LADONNA Wright [id number] 05/22/2014 13:40:00 05/22/2014 23:59: 59 CLS Outpatient MADL OTOLARYNGOLOGY TEACHER, ETELVINA L [id number] 05/22/2014 13:40:00 05/22/2014 23:59: 59 CLS Outpatient MADL OTOLARYNGOLOGY TEACHER, ETELVINA L [id number] 04/03/2014 14:31:00 04/03/2014 23:59: 59 CLS Outpatient MADL OTOLARYNGOLOGY TEACHER, ETELVINA L [id number] 04/03/2014 14:31:00 04/03/2014 23:59: 59 CLS Outpatient SALGUERO LADONNA PRAKASH [id number] 03/10/2014 08:26:00 03/10/2014 23:59: 59 CLS Outpatient LADONNA SALGUERO DO [id number] 03/10/2014 08:26:00 03/10/2014 23:59: 59 CLS Outpatient LADONNA SALGUERO DO [id number] 02/27/2014 14:59:00 02/27/2014 23:59: 59 CLS Outpatient LADONNA SALGUERO DO [id number] 2014 09:28:00 2014 23:59: 59 CLS Outpatient BYRON BOSS MD [id number] 2014 09:28:00 2014 23:59: 59 CLS Outpatient BYRON BOSS MD [id number] 12/09/2013 07:39:00 12/09/2013 23:59: 59 CLS Outpatient LADONNA SALGUERO DO [id number] 09/22/2013 09:11:00 09/22/2013 23:59: 59 CLS Outpatient BYRON BOSS MD [id number] 09/02/2013 07:40:00 09/02/2013 23:59: 59 CLS Outpatient LADONNA SALGUERO DO [id number] 08/25/2013 15:49:00 08/25/2013 23:59: 59 CLS Outpatient BYRON BOSS MD [id number] 08/17/2013 13:19:00 08/17/2013 23:59: 59 CLS Outpatient BYRON BOSS MD [id number] 02/08/2013 10:18:00 02/08/2013 23:59: 59 CLS Outpatient BYRON BOSS MD [id number] 12/07/2012 08:34:00 12/07/2012 23:59: 59 CLS Outpatient ROMELIA FISCHER MD [id number] 12/02/2012 14:59:00 12/02/2012 23:59: 59 CLS Outpatient LAURIE MORA APRN [id number] 11/01/2012 08:50:00 11/01/2012 23:59: 59 CLS Outpatient [id number] 10/11/2012 08:39:00 10/11/2012 23:59: 59 CLS Outpatient LAURIE MORA APRN [id number] 09/07/2012 09:19:00 09/07/2012 23:59:5 9 CLS Outpatient LAURIE MORA APRN [id number] 08/10/2013 14:39:00 Document Registration [id number] 06/03/2013 08:05:00 Document Registration [id number] 06/03/2013 08:05:00 Document Registration [id number] 02/08/2013 10:18:00 Document Registration [id number] 08/04/2019 13:00:00 08/04/2019 23:59:5 9 CLS Outpatient KYE OLVERA, [place] [facility] [id number] 11/16/2019 11:20:00 Document Registration [id number] 06/10/2019 10:00:00 Document Registration [id number] 05/02/2019 14:40:00 Document Registration [id number] 02/15/2019 11:05:00 Document Registration [id number] 07/13/2018 13:20:00 Document Registration [id number] 07/08/2018 15:20:00 Document Registration [id number] 11:00:00 Document Registration [id number] 11/18/2019 10:21:00 23:59:59 CLS Outpatient MARCIANO PUGA MD [facility] WOUNDCARE [id number] 11/01/2019 17:15:00 13:37:00 DIS Outpatient ANALY BAPTISTE DO [facility] 4TH PNA [id number] 11/01/2019 12:19:00 23:59:59 CLS Outpatient MARCIANO PUGA MD [facility] WOUNDCARE [id number] 10/23/2019 08:55:00 11:33:00 DIS Outpatient KARLOS OLVERA, MARLA Ackerman [facility] ER ROTHMAN [id number] 10/21/2019 07:37:00 23:59:59 CLS Outpatient JESSY PANDEY APRN [facility] RAD PNEUMONIA, COPD [id number] 08/10/2019 13:30:00 14:10:00 DIS Inpatient LARISA GARCIA MD [facility] 4TH INFLUENZA B,RML PNEUMON IA,COPD, R BKA [id number] 07/17/2019 15:34:00 14:00:00 DIS Inpatient QUE LEON MD [facility] 4TH SEPSIS,UTI,PNEUMONIA [id number] 07/14/2019 14:03:00 23:59:59 CLS Outpatient JESSY PNADEY OTOLARYNGOLOGY TEACHER [facility] RAD J18.9 [id number] 06/30/2019 17:59:00 19:20:00 DIS Emergency THOMPSON QURESHI OTOLARYNGOLOGY TEACHER [facility] ER SOB [id number] 06/24/2019 09:39:00 14:11:00 DIS Emergency KARLOS OLVERA, MARLA Ackerman [facility] ER DIARRHEA WEAKNE SS [id number] 06/14/2019 14:21:00 19:15:00 DIS Inpatient QUE LEON MD [facility] 4TH UTI;RLL PNEUMONIA [id number] 04/27/2019 10:33:00 14:13:00 DIS Outpatient VINNIE OLVERA, MARINA Garcia [facility] REHAB S/P R BKA [id number] 06/08/2019 12:05:00 23:59:59 CLS Preadmit JESSY PANDEY OTOLARYNGOLOGY TEACHER [facility] RAD COPD [id number] 05/26/2019 10:45:00 23:59:59 CLS Outpatient JESSY PANDEY OTOLARYNGOLOGY TEACHER [facility] LAB ABG [id number] 12/31/2018 12:05:00 23:59:59 CLS Preadmit KYE OLVERA, KING Velez [facility] RAD ROUTINE ADULT HEALTH MA INTENANCE [id number] 11/26/2018 15:58:00 12:05:00 DIS Inpatient LADONNA SALGUERO DO, V [facility] 4TH GASTROENTERITIS,UTI [id number] 08/02/2018 08:15:00 018 23:59:59 CLS Preadmit JESSY PANDEY OTOLARYNGOLOGY TEACHER [facility] PULM COPD,SOB [id number] 05/03/2018 08:12:00 018 00:01:00 DIS Outpatient JESSY PANDEY OTOLARYNGOLOGY TEACHER [facility] PULM COPD,SOB [id number] 07/30/2018 11:45:00 018 14:55:00 DIS Outpatient LEONEL ORTIZ MD [facility] ENDO +BLOOD IN STOOL/FAMILY HX COLON CA [id number] 07/23/2018 05:49:00 018 11:04:00 DIS Outpatient LEONEL ORTIZ MD [facility] PREOP COLONOSCOPY [id number] 05/27/2018 10:09:00 018 23:59:59 CLS Outpatient JESSY PANDEY OTOLARYNGOLOGY TEACHER [facility] RAD COPD [id number] 05/14/2018 15:04:00 018 16:20:00 DIS Emergency THOMPSON QURESHI OTOLARYNGOLOGY TEACHER [facility] ER R ANKLE PAIN/COLD [id number] 04/24/2018 20:37:00 018 06:48:00 DIS Outpatient JESSY PANDEY OTOLARYNGOLOGY TEACHER [facility] SLEEP COPD,SOB [id number] 03/31/2018 11:36:00 018 23:59:59 CLS Outpatient BRADLY KIRBY MD, FACC, FACP CC DS [facility] RAD R07.89 CHES T PAIN [id number] 03/09/2018 06:49:00 018 12:30:00 DIS Outpatient KOFI OLVERA FACC, BRADLY NIX CC DS [facility] CATH CAD [id number] 03/03/2018 09:01:00 018 11:50:00 DIS Outpatient LEONEL ORTIZ MD [facility] ENDO DYSPHAGIA [id number] 02/26/2018 05:52:00 018 12:49:00 DIS Outpatient LEONEL ORTIZ MD [facility] PREOP EGD [id number] 02/21/2018 16:36:00 018 19:07:00 DIS Emergency FELICIA ENCINAS DO [facility] ER WEAKNESS [id number] 02/15/2018 10:22:00 018 15:46:00 DIS Emergency MARLA EVERTET MD [facility] ER CP [id number] 01/07/2018 16:24:00 018 19:40:00 DIS Emergency HARDEEP DORANTES [facility] ER FALL WITH BIG BUMP ON L LEG [id number] 12/29/2017 12:20:00 018 23:59:59 CLS Outpatient KOFI OLVERA FACC, ALI FACP CC DS [facility] RAD I25.10 CAD [id number] 12/21/2017 13:54:00 018 23:59:59 CLS Outpatient KYLAH CREWS [facility] CARD I25.5 CARDIOMYO JIMI [id number] 12/02/2017 08:24:00 018 23:59:59 CLS Outpatient KOFI OLVERA FACC, ALI FACP CC DS [facility] RT R06.02 SOB [id number] 12/01/2017 08:04:00 018 23:59:59 CLS Outpatient KOFI OLVERA FACC, ALI FACP CC DS [facility] CARD R06.02 SOB [id number] 11/26/2017 11:24:00 017 23:59:59 CLS Outpatient KOFI OLVERA FACC, ALI FACP CC DS [facility] CARD R06.02 SOB [id number] 11/09/2017 12:27:00 017 23:59:59 CLS Outpatient BILL CLEMENTE DO [facility] RAD ABNORMAL MAMMO [id number] 10/27/2017 12:24:00 017 23:59:59 CLS Outpatient BILL CLEMENTE DO [facility] RAD SCREENING [id number] 12/31/2016 10:19:00 017 23:59:59 CLS Outpatient ADELFO [place] Franc DELACRUZ [facility] RAD AAA [id number] 04/07/2016 08:25:00 016 11:40:00 DIS Outpatient ALVIN SALDANA MD [facility] SDC DYSKINESIA [id number] 04/02/2016 05:42:00 016 11:05:00 DIS Outpatient ALVIN SALDANA MD [facility] PREOP DYSKINSIA [id number] 03/11/2016 11:17:00 016 23:59:59 CLS Outpatient KOFI OLVERA FACC, BRADLY NIX CC DS [facility] LAB CAD,HYPERLI PIDEMIA [id number] 03/09/2016 16:47:00 016 19:30:00 DIS Emergency KARLOS OLVERA, MARLA Ackerman [facility] ER FEVER/DIARRHEA [id number] 03/05/2016 19:11:00 016 21:37:00 DIS Emergency ANGELES OLVERA, INES Peter [facility] ER EYE SWELLING/AN KLE PAIN FROM FALL [id number] 12/18/2015 08:53:00 016 23:59:59 CLS Outpatient KYLAH CREWS [facility] RAD ABDOMEN AORTIC ECTASIA [id number] 12/09/2015 10:18:00 016 12:47:00 DIS Emergency JESSIE OLVERA, BETTINA Nation [facility] ER R EYE SWELLING/PAIN [id number] 12/01/2015 13:15:00 016 15:12:00 DIS Emergency MARLA EVERETT MD [facility] ER R EYE SWELLING [id number] 10/07/2015 16:35:00 11/08/2 015 18:15:00 DIS Emergency BETTINA ROMAN MD [facility] ER POST OP/BLEEDING [id number] 10/04/2015 10:45:00 23:59:59 CLS Outpatient BILL CLEMENTE DO [facility] LAB RESISTANT GUINF ECTIONS [id number] 09/13/2015 10:52:00 23:59:59 CLS Outpatient KYLAH CREWS [facility] LAB HLP,CAD [id number] 07/30/2015 15:05:00 16:25:00 DIS Emergency HARDEEP DORANTES [facility] ER BACK,HIP PAIN [id number] 07/16/2015 17:17:00 18:20:00 DIS Emergency THOMPSON QURESHI APRN [facility] ER L ARM, L KNEE INJ [id number] 07/09/2015 13:52:00 23:59:59 CLS Outpatient BILL CLEMENTE DO [facility] RAD TRAUMA L 3RD TO E W/DIABETES [id number] 06/11/2015 09:00:00 23:59:59 CLS Outpatient KOFI OLVERA FACC, BRADLY NIX CC DS [facility] RAD ABDOMINAL A ORTIAL ECTASIA [id number] 04/10/2015 10:25:00 23:59:59 CLS Outpatient BILL CLEMENTE DO [facility] RAD R ANKLE PAIN, H X OF FX SURGERY [id number] 03/26/2015 11:17:00 23:59:59 CLS Outpatient BILL CLEMENTE DO [facility] RAD BACK PAIN, [id number] 03/16/2015 10:23:00 23:59:59 CLS Outpatient BILL CLEMENTE DO [facility] LAB DM II,CAD,HLP [id number] 03/16/2015 10:20:00 23:59:59 CLS Outpatient KYLAH CREWS COMMUNITY DEVELOPMENT MANAGER [facility] LAB ELECTROLYTE DEPLETION,CAD,HTN,HLP [id number] 03/01/2015 07:26:00 23:59:59 CLS Outpatient ETELVINA LEONARD COMMUNITY DEVELOPMENT MANAGER [facility] CARD NEAR SYNCOPE EPISODE CA D [id number] 02/19/2015 16:09:00 13:40:00 DIS Inpatient CAROLYN OLVERA, QUE Bowser [facility] 4TH ORTHOSTATIC HYPOTENSION ; ACUTE RENAL FAILURE [id number] 12/30/2014 11:12:00 14:54:00 DIS Emergency INES REYNOSO MD [facility] ER SOA,DIZZINESS [id number] 11/03/2014 08:58:00 10:36:00 DIS Emergency DANIELITO SORIANO MD [facility] ER COUGH/CONGESTION [id number] 10/30/2014 14:50:00 16:25:00 DIS Emergency HARDEEP DORANTES [facility] ER NAUSEATED/BODYACHES/WE AKNESS EARACHE/RINGING [id number] 10/01/2014 13:53:00 14:57:00 DIS Emergency FELICIA ENCINAS DO [facility] ER RECTAL BLEEDING [id number] 09/11/2014 09:46:00 23:59:59 CLS Outpatient KOFI OLVERA FACC, BRADLY FACP CC DS [facility] CARD ISCHEMIC CA RDIO MYOPATHY,CAD [id number] 09/01/2014 10:58:00 11:40:00 DIS Emergency THOMPSON QURESHI APRN [facility] ER SWOLLEN EYE [id number] 08/31/2014 16:55:00 18:16:00 DIS Emergency THOMPSON QURESHI APRN [facility] ER NECK SWELLING [id number] 07/10/2014 09:07:00 08/11/2 014 11:55:00 DIS Outpatient SALDANA MD, ALVIN M [facility] SDC DYSPHAGIA [id number] 07/05/2014 07:29:00 23:59:59 CLS Outpatient ALVIN SALDANA MD [facility] PREOP DYSPHAGIA [id number] 06/05/2014 08:24:00 11:43:00 DIS Outpatient ALVIN SALDANA MD [facility] SCREENING;FAMILY HISTO RY [id number] 05/31/2014 07:28:00 23:59:59 CLS Outpatient ALVIN SALDANA MD [facility] PREOP SCREENING;FAMILY HISTO RY [id number] 05/29/2014 12:18:00 23:59:59 CLS Outpatient KYLAH CREWS [facility] LAB POST HEART CATH [id number] 05/23/2014 06:24:00 20:30:00 DIS Outpatient KOFI OLVERA FACC, BRADLY NIX CC DS [facility] CATH SHORTNESS O F BREATH CAD ABNORMAL STRESS TEST [id number] 05/08/2014 12:02:00 23:59:59 CLS Outpatient KYLAH CREWS [facility] CARD CAD [id number] 02/13/2014 12:30:00 14:00:00 DIS Emergency THOMPSON QURESHI APRN [facility] ER FALL/BACK PAIN [id number] 02/09/2014 19:30:00 10:45:00 DIS Inpatient LADONNA SALGUERO DO, V [facility] ICU ACUTE COPD EXACERBATION [id number] 2014 11:48:00 23:59:59 CLS Outpatient BYRON BOSS MD [facility] LAB HTN,HYPERLIPADE IA [id number] 12/12/2013 06:44:00 11:43:00 DIS Outpatient PATRICIA MCDONALD MD [facility] PAINFUL HARDWARE RIGHT ANKLE [id number] 12/05/2013 14:33:00 23:59:59 CLS Outpatient PATRICIA MCDONALD MD [facility] PREOP PAINFUL HARDWARE RIGHT ANKLE [id number] 11/04/2013 12:22:00 12:46:00 DIS Emergency MARLA EVERETT MD [facility] ER SUTURE REMOVAL [id number] 10/31/2013 10:42:00 23:59:59 CLS Outpatient KYLAH CREWS [facility] CARD CAD,HTN [id number] 10/25/2013 08:26:00 23:59:59 CLS Outpatient KYLAH CREWS [facility] LAB CAD,HEART VALVE DISEASE,HTN,HYPERLIPIDEMIA,COPD [id number] 10/25/2013 18:12:00 20:10:00 DIS Emergency HARDEEP DORANTES [facility] ER FOOT INJ [id number] 10/21/2013 06:02:00 11:11:00 DIS Outpatient EDUARDO VILLEGAS MD [facility] INTRINSIC SPHINCTER DEF ICIENCY; INCONTINENCE [id number] 10/17/2013 09:25:00 23:59:59 CLS Outpatient EDUARDO VILLEGAS MD [facility] PREOP INTRINSIC SPHINCTER DEF ICIENCY; INCONTINENCE [id number] 08/03/2013 06:00:00 013 09:56:00 DIS Outpatient EDUARDO VILLEGAS MD [facility] INCONTINENCE [id number] 07/27/2013 12:35:00 23:59:59 CLS Outpatient EDUARDO VILLEGAS MD [facility] PREOP INCONTINENCE [id number] 06/13/2013 14:57:00 23:59:59 CLS Outpatient [id number] 04/18/2013 22:12:00 013 23:34:00 DIS Emergency FELICIA ENCINAS DO [facility] ER REACTION TO MEDICATION [id number] 04/17/2013 14:11:00 013 15:42:00 DIS Emergency MARCO A VAN MD [facility] ER VOMITING BODY ACHES [id number] 11/25/2019 09:36:[address] Outpatient MARCIANO PUGA MD [facility] WOUNDCARE [id number] 03/26/2015 11:17:00 Document Registration [id number] 01/19/2013 18:23:00 Document Registration [id number] 01/01/2013 15:27:00 Document Registration [id number] 12/26/2012 14:21:00 Document Registration [id number] 11/11/2012 16:20:00 Document Registration [id number] 10/24/2012 23:40:00 Document Registration [id number] 09/19/2012 19:49:00 Document Registration [id number] 09/13/2012 10:47:00 Document Registration [id number] 09/08/2012 15:08:00 Document Registration [id number] 09/04/2012 17:10:00 Document Registration [id number] 06/12/2012 16:25:00 Document Registration [id number] 06/03/2012 10:41:00 Document Registration [id number] 04/16/2012 09:50:00 Document Registration [id number] 03/17/2012 10:58:00 Document Registration [id number] 03/08/2012 10:14:00 Document Registration [id number] 02/01/2012 18:50:00 Document Registration [id number] 01/28/2012 06:00:00 Document Registration [id number] 01/21/2012 09:31:00 Document Registration [id number] 11/11/2011 07:21:00 Document Registration [id number] 10/30/2011 08:09:00 Document Registration [id number] 10/27/2011 07:16:00 Document Registration [id number] 10/24/2011 12:36:00 Document Registration [id number] 10/19/2011 11:22:00 Document Registration [id number] 08/07/2011 10:17:00 Document Registration [id number] 07/14/2011 13:47:00 Document Registration [id number] 07/06/2011 18:30:00 Document Registration [id number] 03/19/2011 05:41:00 Document Registration [id number] 03/13/2011 12:47:00 Document Registration [id number] 02/12/2011 10:12:00 Document Registration [id number] 02/06/2011 08:14:00 Document Registration [id number] 01/22/2011 05:55:00 Document Registration [id number] 01/15/2011 10:27:00 Document Registration [id number] 11/08/2010 10:08:00 Document Registration [id number] 09/05/2010 05:48:00 Document Registration [id number] 09/04/2010 09:00:00 Document Registration [id number] 08/26/2010 07:15:00 Document Registration [id number] 08/07/2010 14:40:00 Document Registration [id number] 08/02/2010 08:36:00 Document Registration [id number] 05/26/2010 12:24:00 Document Registration [id number] 04/14/2010 17:58:00 Document Registration [id number] 03/08/2010 10:03:00 Document Registration [id number] 03/07/2010 09:13:00 Document Registration [id number] 02/21/2010 08:56:00 Document Registration [id number] 08/02/2009 18:35:00 Document Registration
== END 2019-11-08 13:37 | disposition home health service (06) | DRG 871 ==
LOC: EDUNIT# 13:39 → ER 13:41 → ICU 17:15 → 4TH 11-02 11:05
PROVIDERS: ADMIT Internal Medicine; ATTEND Internal Medicine
DX: A41.9 Sepsis, unspecified organism (principal); J18.1 Lobar pneumonia, unspecified organism; T24.312A Burn of third degree of left thigh, initial encounter; T24.211A Burn of second degree of right thigh, initial encounter; N39.0 Urinary tract infection, site not specified; J98.11 Atelectasis; R09.02 Hypoxemia; J43.9 Emphysema, unspecified; R91.8 Other nonspecific abnormal finding of lung field; E11.51 Type 2 diabetes mellitus with diabetic peripheral angiopathy without gangrene; F17.210 Nicotine dependence, cigarettes, uncomplicated; E03.9 Hypothyroidism, unspecified; R06.03 Acute respiratory distress; I25.10 Atherosclerotic heart disease of native coronary artery without angina pectoris; I11.0 Hypertensive heart disease with heart failure; I50.9 Heart failure, unspecified; I25.2 Old myocardial infarction; R53.81 Other malaise; K21.9 Gastro-esophageal reflux disease without esophagitis; G43.909 Migraine, unspecified, not intractable, without status migrainosus; F41.9 Anxiety disorder, unspecified; F32.9 Major depressive disorder, single episode, unspecified; D64.9 Anemia, unspecified; I72.9 Aneurysm of unspecified site; R29.6 Repeated falls; X06.2XXA Exposure to ignition of other clothing and apparel, initial encounter; Z79.84 Long term (current) use of oral hypoglycemic drugs; Z99.81 Dependence on supplemental oxygen; Z95.5 Presence of coronary angioplasty implant and graft; Z89.611 Acquired absence of right leg above knee
CPT/HCPCS: 36415; 36600; 71045; 71046; 80048; 80053; 81000; 82805; 82962; 83605; 85007; 85025; 85027; 87040; 87070; 87077; 87088; 87185; 87186; 87205; 87804; 94640; 94664; 94760; 96365; 96375; 99213

== ENCOUNTER → 2019-11-01 | Outpatient (CLI) | payer MEDICAID ==
[~2019-11-01] MED LIST changes: +ASEN5TAB7 PO; +BUSP15TA60 PO; +HYDR-3820 PO; +NITR0.3T7 PO; +ONDA4TAB10 PO
== END ==
LOC: WOUNDCARE 12:19
PROVIDERS: ATTEND Surgery
DX: E11.622 Type 2 diabetes mellitus with other skin ulcer (principal); E11.52 Type 2 diabetes mellitus with diabetic peripheral angiopathy with gangrene; I96 Gangrene, not elsewhere classified; J18.1 Lobar pneumonia, unspecified organism; T24.312A Burn of third degree of left thigh, initial encounter; T24.211A Burn of second degree of right thigh, initial encounter; T65.222A Toxic effect of tobacco cigarettes, intentional self-harm, initial encounter; F17.218 Nicotine dependence, cigarettes, with other nicotine-induced disorders; Z89.511 Acquired absence of right leg below knee
CPT/HCPCS: 99213

== ENCOUNTER → 2019-11-18 | Outpatient (CLI) | payer MEDICAID ==
[~2019-11-18] MED LIST changes: +ASEN5TAB7 PO; +BUSP15TA60 PO; +CLON0.5T13; -CLON0.5T4; +HYDR-3820 PO; +NITR0.3T7 PO; +ONDA4TAB10 PO; -OXYB15TA18 PO
== END ==
LOC: WOUNDCARE 10:21
PROVIDERS: ATTEND Surgery
DX: E11.622 Type 2 diabetes mellitus with other skin ulcer (principal); T24.312A Burn of third degree of left thigh, initial encounter; T24.211A Burn of second degree of right thigh, initial encounter; T65.222A Toxic effect of tobacco cigarettes, intentional self-harm, initial encounter; F17.218 Nicotine dependence, cigarettes, with other nicotine-induced disorders; Z89.511 Acquired absence of right leg below knee
CPT/HCPCS: 16020

== ENCOUNTER → 2019-11-25 | Outpatient (CLI) | payer MEDICAID | LOC: WOUNDCARE 09:36 | PROVIDERS: ATTEND Surgery | DX: E11.622 Type 2 diabetes mellitus with other skin ulcer (principal); T24.312A Burn of third degree of left thigh, initial encounter; T24.311A Burn of third degree of right thigh, initial encounter; T65.222A Toxic effect of tobacco cigarettes, intentional self-harm, initial encounter; F17.218 Nicotine dependence, cigarettes, with other nicotine-induced disorders; Z89.511 Acquired absence of right leg below knee | CPT/HCPCS: 16020 ==

== ENCOUNTER → 2020-01-20 | Outpatient (CLI) | payer MEDICAID ==
[~2020-01-20] MED LIST changes: -CLON0.5T13; +CLON0.5T4; -MONT10TA24 PO; +MONT10TA26 PO; +ONDA-105 PO; -ONDA4TAB10 PO; +OXYB15TA19 PO; +QUET100T33; -QUET100T69; -TRAZ-190 PO; +TRAZ-227 PO
== END ==
LOC: CARD 09:41
PROVIDERS: ATTEND Internal Medicine Cardiovascular Disease
DX: I25.10 Atherosclerotic heart disease of native coronary artery without angina pectoris (principal); I77.89 Other specified disorders of arteries and arterioles; I25.5 Ischemic cardiomyopathy; J44.9 Chronic obstructive pulmonary disease, unspecified; E11.9 Type 2 diabetes mellitus without complications; I11.9 Hypertensive heart disease without heart failure; E78.5 Hyperlipidemia, unspecified; I34.0 Nonrheumatic mitral (valve) insufficiency
CPT/HCPCS: 93306

== ENCOUNTER → 2020-01-24 | Outpatient (CLI) | payer MEDICAID ==
[~2020-01-24] VITALS: Ht 170 cm; Wt 83.0 kg
[~2020-01-24] MED LIST changes: +CATHETER FLUSH 10 ML SYR IV PRN; +REGADENOSON 0.4 MG/5 ML SYR (LEXISCAN) IV ONE
[2020-01-24 09:56] VITALS: BP 162/80
[2020-01-24 10:08] VITALS: BP 176/90
--- NOTE | 2020-01-24 19:02 | STRESS TEST ---
DATE OF SERVICE: 01/24/2020 RESTING AND POST REGADENOSON TECHNETIUM-99M TETROFOSMIN SPECT CT IMAGING ORDERING PHYSICIAN: Dr. Martinez. PRIMARY PHYSICIAN: Primitivo Ambrosio APRN CLINICAL DIAGNOSES: Coronary artery disease. Baseline images were carried out after injection of 9.81 mCi of technetium-99m Tetrofosmin. This was followed by 0.4 mg regadenoson and 32.7 mCi of technetium-99m Tetrofosmin for stress imaging. The electrocardiogram showed sinus rhythm at baseline. It did not change significantly with regadenoson infusion. Review of images at rest and following stress does not indicate any significant perfusion defects consistent with myocardial ischemia or infarction. Gated images show normal global left ventricular systolic function with normal regional wall motion. Left ventricular ejection fraction is calculated to be 64%. Left ventricular end diastolic volume is 55 mL. TID is absent (1.07). CONCLUSIONS: 1. No evidence of any significant myocardial ischemia or infarction on this study. 2. Normal regional wall motion. 3. Normal global left ventricular systolic function with a calculated ejection fraction of 64%. Job ID: [id number] DocumentID: [id number] Dictated Date: 01/24/2020 17:53:08 Punchboard Inserter Date: 01/24/2020 19:01:51 Dictated By: BRADLY MARTINEZ MD, MA, FACP, FACC,
== END ==
LOC: CARD 09:16
PROVIDERS: ATTEND Internal Medicine Cardiovascular Disease
DX: I25.10 Atherosclerotic heart disease of native coronary artery without angina pectoris (principal); I77.89 Other specified disorders of arteries and arterioles; I25.5 Ischemic cardiomyopathy; J44.9 Chronic obstructive pulmonary disease, unspecified; E11.9 Type 2 diabetes mellitus without complications; I10 Essential (primary) hypertension; E78.5 Hyperlipidemia, unspecified
CPT/HCPCS: 78452; 93017

== ENCOUNTER → 2020-05-24 | Outpatient (CLI) | payer MEDICAID ==
[~2020-05-24] MED LIST changes: +ACHYD1T PO; -CATHETER FLUSH 10 ML SYR IV PRN; +HOLD METFORMIN - RECEIVED CONTRAST 20 ML VIAL IV SCH; -HYDR-3820 PO; +IOHEXOL 350 MG/ML 100 ML (OMNIPAQUE 350) VIAL IV ONE; -REGADENOSON 0.4 MG/5 ML SYR (LEXISCAN) IV ONE
[2020-05-24 11:19] LABS: CREATININE SERUM 0.74 MG/DL (0.60-1.30); GFR ESTIMATED > 60
[2020-05-24 11:20] LABS: BUN/CREATININE RATIO 16
--- NOTE | 2020-05-24 12:19 | Diagnostic Imaging Report ---
PROCEDURE: CT chest with contrast only. TECHNIQUE: Multiple contiguous axial images were obtained through the chest after administration of intravenous contrast. Auto Exposure Controls were utilized during the CT exam to meet ALARA standards for radiation dose reduction. INDICATION: Pulmonary nodules. FINDINGS: The previous CT chest exam of 10/21/2019 noted multifocal bibasilar nodules in a subpleural distribution. Those nodules are again evident on this study and do not appear to have changed significantly in size or appearance. The stability of those findings are greater than 6 month period would suggest that they are most likely benign. A six-month follow-up CT chest exam would be recommended for continued evaluation, however. There is no evidence for failure, pneumonia or for pleural effusion to indicate an acute abnormality. The emphysematous changes involving both lungs and the strands of fibrosis seen previously are again visualized and essentially no different. The heart is stable in size. Coronary artery calcifications are noted. The aorta is not abnormally dilated and there is no sign of dissection. There is no defect within the pulmonary arteries to indicate a pulmonary embolus. There is no mediastinal or hilar adenopathy. The thyroid gland was not well visualized. There is no obvious breast mass. The sections through the upper abdomen show the stomach is filled with fluid and difficult to assess. There is also an aortic stent graft in place. The graft where visualized appears to be intact and patent. The bone windows show no evidence for fracture or for a destructive lesion. The long-standing compression deformity of T6 seen on the prior study is again evident and no different. IMPRESSION: 1. The small subpleural nodules in both lung bases seen previously are again evident and appears stable. Consequently they are unlikely related to an aggressive neoplastic process. A six-month follow-up CT chest exam would be recommended for continued evaluation. 2. There are chronic pulmonary changes present and there is evidence of coronary disease. There is no sign of an acute cardiopulmonary abnormality, however. 3. The aortic stent graft where visualized appears to be in good position and patent. Dictated by: Dictated on workstation # [id number]
== END ==
LOC: RAD 10:43
PROVIDERS: ATTEND Nurse Practitioner Family
DX: J44.9 Chronic obstructive pulmonary disease, unspecified (principal); G47.36 Sleep related hypoventilation in conditions classified elsewhere; R91.8 Other nonspecific abnormal finding of lung field; Z72.0 Tobacco use; Z95.828 Presence of other vascular implants and grafts
CPT/HCPCS: 36415; 71260; 82565; 84520

== ENCOUNTER 2020-05-30 13:40 | Emergency (ER) | payer MEDICAID ==
[~2020-05-30] VITALS: Ht 165 cm; Wt 80.0 kg
[~2020-05-30 13:40] MED LIST changes: -HOLD METFORMIN - RECEIVED CONTRAST 20 ML VIAL IV SCH; -IOHEXOL 350 MG/ML 100 ML (OMNIPAQUE 350) VIAL IV ONE
--- NOTE | 2020-05-30 14:05 | Diagnostic Imaging Report ---
INDICATION: Shortness of air. TIME OF EXAM: 01:53 p.m. Correlation is made with prior chest from 11/02/2019. FINDINGS: The heart size is normal. The pulmonary vascularity is unremarkable. The lungs are clear. No infiltrate, effusion or pneumothorax is detected. IMPRESSION: No acute cardiopulmonary process is detected. Dictated by: Dictated on workstation # [id number]
[2020-05-30 14:45] LABS: BASOPHILS % (AUTO) 0 % (0-10); EOSINOPHILS # (AUTO) 0.1 10^3/uL (0.0-0.3); EOSINOPHILS % (AUTO) 1 % (0-10); HEMATOCRIT 41 % (35-52); HEMOGLOBIN 13.1 G/DL (11.5-16.0); LYMPHOCYTES # (AUTO) 1.6 X 10^3 (1.0-4.0); LYMPHOCYTES % (AUTO) 19 % (12-44); MEAN CORPUSCULAR HEMOGLOBIN 25 PG (25-34); MEAN CORPUSCULAR HGB CONC 32 G/DL (32-36); MEAN CORPUSCULAR VOLUME 77 FL (80-99); MEAN PLATELET VOLUME 10.1 FL (7.4-10.4); MONOCYTES # (AUTO) 1.2 X 10^3 (0.0-1.0); MONOCYTES % (AUTO) 14 % (0-12); NEUTROPHILS # (AUTO) 5.7 X 10^3 (1.8-7.8); NEUTROPHILS % (AUTO) 67 % (42-75); PLATELET COUNT 319 10^3/uL (130-400); RED CELL DISTRIBUTION WIDTH 18.1 % (10.0-14.5); WHITE BLOOD COUNT 8.5 10^3/uL (4.3-11.0)
[2020-05-30 15:03] LABS: ALBUMIN 3.5 GM/DL (3.2-4.5)
[2020-05-30 15:04] LABS: CHLORIDE 96 MMOL/L (98-107); POTASSIUM 4.7 MMOL/L (3.6-5.0); SODIUM 130 MMOL/L (135-145)
[2020-05-30 15:05] LABS: CALCIUM 8.7 MG/DL (8.5-10.1)
[2020-05-30 15:06] LABS: GLUCOSE 94 MG/DL (70-105); TOTAL PROTEIN 7.2 GM/DL (6.4-8.2)
[2020-05-30 15:07] LABS: CARBON DIOXIDE 25 MMOL/L (21-32)
[2020-05-30 15:08] LABS: BILIRUBIN,TOTAL 0.4 MG/DL (0.1-1.0)
[2020-05-30 15:09] LABS: ALKALINE PHOSPHATASE 92 U/L (40-136)
[2020-05-30 15:10] LABS: CREATININE SERUM 0.74 MG/DL (0.60-1.30); GFR ESTIMATED > 60
[2020-05-30 15:11] LABS: BUN/CREATININE RATIO 14
[2020-05-30 15:13] LABS: ALANINE AMINOTRANSFERASE 13 U/L (0-55)
[2020-05-30] MEDS ORDERED: NS IV 1000 ML 1,000 ML IV SCH ×2 (15:30→17:45)
--- NOTE | 2020-05-30 15:30 | ED Respiratory ---
General Chief Complaint: Respiratory Problems Stated Complaint: SOA;FEVER Nursing Triage Note: THE PT ARRIVAL BY EMS. SLIGHT SOB IS SEEN ON ARRIVAL. LOC IS NORMAL FOR THE PT. THE PT IS C/O SOB FOR THE PAST TWO MONTHS. Source: patient, EMS Exam Limitations: no limitations History of Present Illness Date Seen by Provider: May 30, 2020 Time Seen by Provider: 13:44 Initial Comments 55-year-old female who presents to the emergency room with complaints of shortness of breath and intermittent fevers for the past 2 months. She reports that she's been on antibiotics that were prescribed by the clinic 2 weeks ago he does not feel like she's gotten any better. She is afebrile at this time. She has severe COPD and wears oxygen continuously. Associated Symptoms: cough, fever/chills, shortness of breath Allergies and Home Medications Allergies Coded Allergies: Penicillins (Verified Allergy, Mild, Hives, 07/23/18) Kylkehz-Pmn-Cky Reductase Inhibitor (Verified Allergy, Unknown, TAKES ATORVASTATIN AT HOME, 06/15/19) amlodipine besylate (Verified Allergy, Unknown, TAKES AMLODIPINE AT HOME, 06/15/19) benazepril HCl (Verified Allergy, Unknown, 07/23/18) aspirin (Verified Adverse Reaction, Mild, Nausea, 07/23/18) codeine (Verified Adverse Reaction, Mild, Nausea, 07/23/18) tramadol (Verified Adverse Reaction, Mild, N/V, 07/23/18) Home Medications Albuterol Sulfate 1 Puff Puff, 2 PUFF IH Q4H PRN for SHORTNESS OF BREATH, (Reported) Albuterol Sulfate 2.5 Mg/3 Ml Vial.neb, 2.5 MG NEB TID PRN for SHORTNESS OF BREATH, (Reported) Amlodipine Besylate 5 Mg Tablet, 5 MG PO DAILY, (Reported) Asenapine Maleate 5 Mg Tab.subl, 5 MG PO HS, (Reported) Atorvastatin Calcium 40 Mg Tablet, 40 MG PO DAILY, (Reported) Budesonide/Formoterol Fumarate 10.2 Gm Hfa.aer.ad, 2 PUFF INH BID, (Reported) Buspirone HCl 15 Mg Tablet, 15 MG PO TID, (Reported) Cyclobenzaprine HCl 10 Mg Tablet, 10 MG PO TID PRN for MUSCLE SPASMS, (Reported) Fesoterodine Fumarate 8 Mg Tab.er.24h, 8 MG PO HS, (Reported) Gabapentin 600 Mg Tablet, 1,200 MG PO BID, (Reported) TAKES 2 (600MG) TABLETS Hydrocodone Bit/Acetaminophen 1 Each Tablet, 1 EA PO Q6HR PRN for PAIN-MODERATE (5-7) Prescribed by: LARISA GARCIA on 11/08/19 1145 Levofloxacin 750 Mg Tablet, 750 MG PO DAILY Prescribed by: SHANTA QUINONEZ on 05/30/20 1803 Levothyroxine Sodium 50 Mcg Tablet, 50 MCG PO DAILY, (Reported) Metformin HCl 500 Mg Tablet, 500 MG PO BID, (Reported) Metoprolol Tartrate 25 Mg Tablet, 25 MG PO BID, (Reported) Mirtazapine 15 Mg Tablet, 15 MG PO HS, (Reported) Montelukast Sodium 10 Mg Tablet, 10 MG PO 1700, (Reported) Nitroglycerin 0.3 Mg Tab.subl, 0.3 MG PO UD PRN for CHEST PAIN (ANGINA), (Reported) Ondansetron HCl 4 Mg Tablet, 4 MG PO TID PRN for NAUSEA/VOMITING-1ST LINE, (Reported) Oxybutynin Chloride 15 Mg Tab.er.24, 15 MG PO DAILY, (Reported) Pantoprazole Sodium 40 Mg Tablet.dr, 40 MG PO DAILY, (Reported) Tiotropium [place] 1 Inh Aerp, 1 CAP IH DAILY, (Reported) Vilazodone Hydrochloride 40 Mg Tablet, 40 MG PO DAILY, (Reported) Patient Home Medication List Home Medication List Reviewed: Yes Review of Systems Review of Systems Constitutional: see HPI; No chills; fever Respiratory: see HPI, cough, short of breath All Other Systems Reviewed Negative Unless Noted: Yes Past Exwlxse-Dumrkw-Nzhxau Hx Past Med/Social Hx: Reviewed Nursing Past Med/Soc Hx Patient Social History Type Used: Cigarettes Former Smoker, Quit: Jun 27, 2018 2nd Hand Smoke Exposure: Yes Recent Foreign Travel: No Contact w/Someone Who Travel: No Recent Infectious Disease Expo: No Recent Hopitalizations: Yes (06/2019 for sepsis) Physical Abuse: No Sexual Abuse: No Mistreated: No Fear: No Immunizations Up To Date Tetanus Booster (TDap): Less than 5yrs Date of Pneumonia Vaccine: Jun 01, 2016 Date of Influenza Vaccine: Aug 30, 2019 Seasonal Allergies Seasonal Allergies: No Past Medical History Surgeries: Yes (CARPALTUNAL) Amputation, Orthopedic, Vascular Surgery Respiratory: Yes ( O2 4L/NC @ all times. 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 5.2oz. 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) Neurologic/Psychiatric: alert, normal mood/affect, oriented x 3 Skin: normal color, warm/dry Focused Exam Lactate Level 05/30/20 14:30: Lactic Acid Level 1.42 Lactic Acid Level Laboratory Tests Test 05/30/20 14:30 Lactic Acid Level 1.42 MMOL/L (0.50-2.00) Progress/Results/Core Measures Suspected Sepsis Recent Fever Within 48 Hours: No Infection Criteria Present: None New/Unexplained Altered Menta: No Sepsis Screen: No Definite Risk SIRS Temperature: Pulse: 83 Respiratory Rate: 20 Laboratory Tests 05/30/20 14:30: White Blood Count 8.5 Blood Pressure 137 /77 Mean: 97 05/30/20 14:30: Lactic Acid Level 1.42 Laboratory Tests 05/30/20 14:30: Creatinine 0.74, Platelet Count 319, Total Bilirubin 0.4 Results/Orders Lab Results Laboratory Tests Test 05/30/20 14:30 05/30/20 17:30 05/30/20 17:40 Range/Units White Blood Count 8.5 4.3-11.0 10^3/uL Red Blood Count 5.26 4.35-5.85 10^6/uL Hemoglobin 13.1 11.5-16.0 G/DL Hematocrit 41 35-52 % Mean Corpuscular Volume 77 L 80-99 FL Mean Corpuscular Hemoglobin 25 25-34 PG Mean Corpuscular Hemoglobin Concent 32 32-36 G/DL Red Cell Distribution Width 18.1 H 10.0-14.5 % Platelet Count 319 130-400 10^3/uL Mean Platelet Volume 10.1 7.4-10.4 FL Neutrophils (%) (Auto) 67 42-75 % Lymphocytes (%) (Auto) 19 12-44 % Monocytes (%) (Auto) 14 H 0-12 % Eosinophils (%) (Auto) 1 0-10 % Basophils (%) (Auto) 0 0-10 % Neutrophils # (Auto) 5.7 1.8-7.8 X 10^3 Lymphocytes # (Auto) 1.6 1.0-4.0 X 10^3 Monocytes # (Auto) 1.2 H 0.0-1.0 X 10^3 Eosinophils # (Auto) 0.1 0.0-0.3 10^3/uL Basophils # (Auto) 0.0 0.0-0.1 10^3/uL D-Dimer 3.59 H 0.00-0.49 UG/ML Sodium Level 130 L 135-145 MMOL/L Potassium Level 4.7 3.6-5.0 MMOL/L Chloride Level 96 L 98-107 MMOL/L Carbon Dioxide Level 25 21-32 MMOL/L Anion Gap 9 5-14 MMOL/L Blood Urea Nitrogen 10 7-18 MG/DL Creatinine 0.74 0.60-1.30 MG/DL Estimat Glomerular Filtration Rate > 60 BUN/Creatinine Ratio 14 Glucose Level 94 70-105 MG/DL Lactic Acid Level 1.42 0.50-2.00 MMOL/L Calcium Level 8.7 8.5-10.1 MG/DL Corrected Calcium 9.1 8.5-10.1 MG/DL Total Bilirubin 0.4 0.1-1.0 MG/DL Aspartate Amino Transf (AST/SGOT) 14 5-34 U/L Alanine Aminotransferase (ALT/SGPT) 13 0-55 U/L Alkaline Phosphatase 92 40-136 U/L B-Type Natriuretic Peptide 22.9 <100.0 PG/ML Total Protein 7.2 6.4-8.2 GM/DL Albumin 3.5 3.2-4.5 GM/DL Urine Color YELLOW Urine Clarity CLOUDY H Urine pH 6.5 5-9 Urine Specific [place] <=1.005 1.016-1.022 Urine Protein NEGATIVE NEGATIVE Urine Glucose (UA) NEGATIVE NEGATIVE Urine Ketones NEGATIVE NEGATIVE Urine Nitrite POSITIVE H NEGATIVE Urine Bilirubin NEGATIVE NEGATIVE Urine Urobilinogen 0.2 < = 1.0 MG/DL Urine Leukocyte Esterase 3+ H NEGATIVE Urine RBC (Auto) TRACE-I NEGATIVE Urine RBC RARE /HPF Urine WBC TNTC H /HPF Urine Squamous Epithelial Cells 0-2 /HPF Urine Crystals NONE /LPF Urine Bacteria MODERATE H /HPF Urine Casts NONE /LPF Urine Mucus NEGATIVE /LPF Urine Culture Indicated YES My Orders Orders - SHANTA QUINONEZ Cbc With Automated Diff (05/30/20 13:44) Comprehensive Metabolic Panel (05/30/20 13:44) BNP (05/30/20 13:44) Blood Culture (05/30/20 13:44) Fibrin Degradation Products (05/30/20 13:44) Ekg Tracing (05/30/20 13:44) O2 (05/30/20 13:44) Ed Iv/Invasive Line Start (05/30/20 13:44) Monitor-Rhythm Ecg Trace Only (05/30/20 13:44) Chest 1 View, Ap/Pa Only (05/30/20 13:44) Lactic Acid Analyzer (05/30/20 13:44) Ns Iv 1000 Ml (Sodium Chloride 0.9%) (05/30/20 15:30) Ct Angio Chest W (05/30/20 16:01) Iohexol Injection (Omnipaque 350 Mg/Ml 1 (05/30/20 16:45) Received Contrast (Hold Metformin- Contr (05/30/20 16:45) Sodium Chloride Flush (Catheter Flush Sy (05/30/20 16:45) Ns (Ivpb) (Sodium Chloride 0.9% Ivpb Bag (05/30/20 16:45) Ua Culture If Indicated (05/30/20 17:16) Ns Iv 1000 Ml (Sodium Chloride 0.9%) (05/30/20 17:45) Coronavirus Sars-Cov-2 So 2018 (05/30/20 17:36) Urine Culture (05/30/20 17:30) Levofloxacin Tablet (Levaquin Tablet) (05/30/20 18:15) Levofloxacin Tablet (Levaquin Tablet) (05/30/20 18:23) Medications Given in ED Current Medications Medications Dose Ordered Sig/Betty Route Start Time Stop Time Status Last Admin Dose Admin Iohexol 100 ml ONCE ONCE IV 05/30/20 16:45 05/30/20 16:46 DC 05/30/20 17:12 71 ML Levofloxacin 500 mg STK-MED ONCE .ROUTE 05/30/20 18:23 05/30/20 18:26 DC 05/30/20 18:37 500 MG Levofloxacin 750 mg ONCE ONCE PO 05/30/20 18:15 05/30/20 18:16 DC 05/30/20 18:37 750 MG Sodium Chloride 10 ml NEEDED PRN IV 05/30/20 16:45 05/30/20 19:31 DC 05/30/20 17:12 10 ML Sodium Chloride 100 ml ONCE ONCE IV 05/30/20 16:45 05/30/20 16:46 DC 05/30/20 17:12 80 ML Vital Signs/I&O 05/30/20 05/30/20 05/30/20 14:02 15:17 18:38 Temp 36.8 Pulse 83 70 Resp 20 18 B/P (MAP) 137/77 (97) 140/66 Pulse Ox 96 96 97 O2 Delivery Nasal Cannula Nasal Cannula O2 Flow Rate 4.00 Capillary Refill : Less Than 3 Seconds Blood Pressure Mean: 97 Progress Note : Time: 18:00 Progress Note I have seen and evaluated the patient. I've informed her of her laboratory and imaging studies. She agrees with plan of care, plans for discharge, return precautions were given. Departure Impression Primary Impression: Urinary tract infection Additional Impressions: COPD (chronic obstructive pulmonary disease) Pneumonia Disposition: 01 HOME, SELF-CARE Condition: Stable/Unchanged Departure-Patient Inst. Decision time for Depature: 18:00 Referrals: [facility] (PCP) Primary Care Physician TONEY DUMONT (Family) Primary Care Physician Patient Instructions: Community-Acquired Pneumonia, Adult (DC), Urinary Tract Infection, Adult (DC), Chronic Bronchitis (DC) Add. Discharge Instructions: Take medications as directed. Use your home medications as previously prescribed. Be sure you are drinking plenty of fluids to stay hydrated. Return back to the emergency room for worsening symptoms or concerns as needed. Follow up primary care provider within 1 week for recheck. All discharge instructions reviewed with patient and/or family. Voiced understanding. Scripts Levofloxacin (Levaquin) 750 Mg Tablet 750 MG PO DAILY for 6 Days, #6 TAB Prov: SHANTA QUINONEZ 05/30/20 SHANTA QUINONEZ May 30, 2020 15:30
[2020-05-30] MEDS ORDERED: CATHETER FLUSH 10 ML SYR IV PRN (16:45)
[2020-05-30] MEDS ORDERED: NS 100 ML (IVPB) BAG IV ONE (16:45)
[2020-05-30] MEDS ORDERED: HOLD METFORMIN - RECEIVED CONTRAST 20 ML VIAL IV SCH (16:45)
[2020-05-30] MEDS ORDERED: IOHEXOL 350 MG/ML 100 ML (OMNIPAQUE 350) VIAL IV ONE (16:45)
--- NOTE | 2020-05-30 17:25 | Diagnostic Imaging Report ---
EXAMINATION: CT angiography of the chest. TECHNIQUE: Contrast enhanced thin section helical images were obtained through the chest with intravenous contrast timed for the optimal opacification of the arterial structures per CTA protocol. Post-processing, reconstructions and interpretation of angiographic images of the vessels was performed. 3D MIP reconstructions were performed and reviewed. All CT scans use one or more of the following dose optimizing techniques: automated exposure control, MA and/or KvP adjustment based on a patient size and exam type, or iterative reconstruction. HISTORY: Shortness of breath and fever. COMPARISON: 05/24/2020. FINDINGS: There is no pulmonary embolism. There is mild right middle lobe, right lower lobe lingular bronchial dilation and tree-in-bud. There is mild septal line thickening in the apices. No pleural effusion. No pneumothorax. Heart size is normal. There are moderate coronary artery calcifications. No pericardial effusion. Aorta is normal in caliber. There is no axillary or supraclavicular lymphadenopathy. There is no mediastinal lymphadenopathy. Limited views of the upper abdomen show an endovascular repair of the abdominal aorta. There is stranding in the suprarenal fossa, likely emanating from the right kidney, concerning for pyelonephritis. There are no suspicious osseous lesions. IMPRESSION: 1. No pulmonary embolism. 2. Patchy nodules and bronchial dilation in the right middle lobe, lingula, and right lower lobe, likely representing an infectious process. This would be an unusual appearance for COVID-19. 3. Stranding in the suprarenal fossa on the right, likely emanating from the right kidney, concerning for pyelonephritis. Dictated by: Dictated on workstation # [id number]
[2020-05-30 17:45] LABS: BILIRUBIN,URINE NEGATIVE (NEGATIVE); COLOR,URINE YELLOW; GLUCOSE, URINE (UA) NEGATIVE (NEGATIVE); KETONES,URINE NEGATIVE (NEGATIVE); LEUKOCYTE ESTERASE ,URINE 3+ (NEGATIVE); NITRITE,URINE POSITIVE (NEGATIVE); PH,URINE 6.5 (5-9); PROTEIN,URINE NEGATIVE (NEGATIVE)
[2020-05-30 17:50] LABS: CLARITY,URINE CLOUDY
[2020-05-30 17:51] LABS: BACTERIA,URINE MODERATE /HPF; RBC,URINE RARE /HPF; SQUAMOUS EPITHELIAL CELL,UR 0-2 /HPF; WBC,URINE TNTC /HPF
[2020-05-30] MEDS ORDERED: LEVO750T9 PO (18:03)
[2020-05-30] MEDS ORDERED: LEVOFLOXACIN 750 MG TAB (LEVAQUIN) PO ONE (18:15)
[2020-05-30] MEDS ORDERED: LEVOFLOXACIN 500 MG TAB (LEVAQUIN) ONE (18:23)
[2020-05-30 18:38] VITALS: BP 140/66
== END 2020-05-30 19:30 | disposition home or self-care (01) ==
LOC: EDUNIT# 13:40 → ER 13:43
DX: N39.0 Urinary tract infection, site not specified (principal); J43.9 Emphysema, unspecified; J18.9 Pneumonia, unspecified organism; I25.2 Old myocardial infarction; I10 Essential (primary) hypertension; G43.909 Migraine, unspecified, not intractable, without status migrainosus; E11.9 Type 2 diabetes mellitus without complications; F41.9 Anxiety disorder, unspecified; F32.9 Major depressive disorder, single episode, unspecified; Z99.81 Dependence on supplemental oxygen; Z95.5 Presence of coronary angioplasty implant and graft; I44.7 Left bundle-branch block, unspecified; Z89.511 Acquired absence of right leg below knee; Z79.84 Long term (current) use of oral hypoglycemic drugs; Z79.890 Hormone replacement therapy; Z79.899 Other long term (current) drug therapy; Z88.0 Allergy status to penicillin; Z88.5 Allergy status to narcotic agent; Z88.6 Allergy status to analgesic agent; Z88.8 Allergy status to other drugs, medicaments and biological substances
CPT/HCPCS: 71045; 71275; 80053; 81000; 83605; 83880; 85025; 85379; 87040; 87077; 87088; 87181; 87184; 87186; 93005; 93041; 99284; U0002; 36415; 87635

== ENCOUNTER → 2020-07-04 | Outpatient (CLI) | payer MEDICAID ==
[~2020-07-04] VITALS: Ht 170 cm; Wt 80.9 kg
[~2020-07-04] MED LIST changes: +CLOP75TA69 PO
[2020-07-04 14:02] LABS: BILIRUBIN,URINE NEGATIVE (NEGATIVE); CLARITY,URINE SL CLOUDY; COLOR,URINE DARK YELLOW; GLUCOSE, URINE (UA) NEGATIVE (NEGATIVE); KETONES,URINE NEGATIVE (NEGATIVE); LEUKOCYTE ESTERASE ,URINE 2+ (NEGATIVE); NITRITE,URINE NEGATIVE (NEGATIVE); PROTEIN,URINE TRACE (NEGATIVE)
[2020-07-04 14:19] LABS: BACTERIA,URINE LARGE /HPF; WBC,URINE >100 /HPF
== END ==
LOC: PREOP 13:09 → EDSTATUS 13:30
PROVIDERS: ATTEND Urology
DX: Z01.818 Encounter for other preprocedural examination (principal); R39.15 Urgency of urination; R32 Unspecified urinary incontinence
CPT/HCPCS: 81000; 87077; 87088

== ENCOUNTER → 2020-08-10 | Outpatient (CLI) | payer MEDICAID ==
--- NOTE | 2020-08-10 16:44 | Diagnostic Imaging Report ---
INDICATION: Routine screening. COMPARISON: Prior mammograms from 10/27/2017 and 09/13/2012. EXAMINATION: 2D and 3D bilateral screening mammography was performed with CAD. 3D tomographic images were obtained and reviewed. The current study was also evaluated with a Computer Aided Detection (CAD) system. FINDINGS: Scattered fibroglandular densities are identified, bilaterally. There are benign calcifications scattered throughout both breasts. No dominant mass or malignant appearing microcalcifications are seen. Axillae are unremarkable. IMPRESSION: No mammographic features suspicious for malignancy are identified. ACR BI-RADS Category 2: Benign findings. Result letter will be mailed to the patient. Note: At least 10% of breast cancer is not imaged by mammography. Dictated by: Dictated on workstation # [id number]
== END ==
LOC: RAD 10:40
PROVIDERS: ATTEND Nurse Practitioner Community Health
DX: Z12.31 Encounter for screening mammogram for malignant neoplasm of breast (principal)
CPT/HCPCS: 77063; 77067

== ENCOUNTER → 2020-08-10 | Outpatient (CLI) | payer MEDICAID ==
--- NOTE | 2020-08-10 11:23 | Diagnostic Imaging Report ---
INDICATION: Shortness of breath. COPD. Tobacco use. Comparison with 05/30/2020 chest x-ray and CT scan of the chest. FINDINGS: There is a bilateral basilar atelectasis. The density noted within the right middle lobe on previous CT scan is again demonstrated without much change. There is some associated bronchiectasis. Similar though smaller changes noted in the lingula. No acute infiltrates have developed. The upper lungs are clear. The heart is not enlarged. No pneumothorax or pleural effusion. No bony abnormalities. IMPRESSION: Bibasilar bronchiectasis with atelectasis and scarring within the right middle lobe and lingula. Dictated by: Dictated on workstation # [id number]
== END ==
LOC: RAD 10:43
PROVIDERS: ATTEND Nurse Practitioner Family
DX: J47.9 Bronchiectasis, uncomplicated (principal); J98.11 Atelectasis; J98.4 Other disorders of lung; J44.9 Chronic obstructive pulmonary disease, unspecified; R91.8 Other nonspecific abnormal finding of lung field; Z20.828 Contact with and (suspected) exposure to other viral communicable diseases; Z72.0 Tobacco use
CPT/HCPCS: 71046